=== PATIENT | female | born 1960 | race Caucasian/White ===

== ENCOUNTER 2017-12-20 21:08 | Emergency (ER) | payer OTHER ==
--- OUTSIDE RECORDS SUMMARY | 2017-12-20 21:11 | XMS REPORT | Clinical Summary ---
:1960 Author Organization [facility] Address [address] [place] [address] Care Team Providers Name Role Phone Leon Tamez MD Primary Care Provider Allergies Active Allergy Reactions Severity Noted Date Comments Ceftriaxone Itching 10/06/2017 Codeine Itching Medium 05/01/2016 11/22/16 - pt states she has taken codeine recently without difficulty Eggshell Membrane Diarrhea 10/08/2016 Egg yoke Iodine Anaphylaxis High 05/01/2016 SOB, wheezing, "my throat closes up." *pt states cannot have topical nor IV Promethazine Other (See Comments) 09/07/2016 Severe confusion Shellfish Derived Anaphylaxis High 05/05/2016 Current Medications Prescription Sig. Disp. Refills Start Date End Date Status riFAXimin (XIFAXAN) Take 550 mg by Active 550 mg tablet mouth 2 (two) times a day. spironolactone Take 100 mg by Active (ALDACTONE) 100 MG mouth every tablet morning. cetirizine (ZyrTEC) Take 10 mg by Active 10 MG tablet mouth daily as needed. QUEtiapine (SEROquel) Take 50 mg by Active 50 MG tablet mouth nightly. pantoprazole Take 40 mg by Active (PROTONIX) 40 MG EC mouth daily. tablet traMADol (ULTRAM) 50 Take 50 mg by Active mg tablet mouth every 6 (six) hours as needed for moderate pain. furosemide (LASIX) 40 Take 1 tablet 90 tablet 3 01/25/2017 Active mg tabletIndications: (40 mg total) Other hypervolemia, by mouth Other cirrhosis of daily. liver, Awaiting liver transplant lactulose 10 gram/15 Take 15 mL (10 1350 mL 11 03/04/2017 Active mL (15 mL) g total) by 8 solutionIndications: mouth 3 Hepatic (three) times encephalopathy a day. lactulose 20 gram/30 Take 30 mL (20 8100 mL 3 03/04/2017 Active mL solution g total) by 8 mouth 3 (three) times a day. potassium chloride 20 Take 40 mEq by 90 tablet 2 06/24/2017 Active mEq tablet extended mouth daily. releaseIndications: Hypokalemia, Other hypervolemia, Localized edema, Awaiting liver transplant gabapentin Take 300 mg by Active (NEURONTIN) 300 mg mouth 3 capsule (three) times a day. furosemide (LASIX) 40 Take 40 mg by Discontinued mg tablet mouth daily. 7 lactulose 10 gram/15 Take 15 mL (10 2700 mL 3 11/07/2016 Discontinued mL (15 mL) g total) by 7 solutionIndications: mouth 3 Hepatic (three) times encephalopathy a day. potassium chloride Take 2 tablets 10 tablet 0 01/25/2017 (K-DUR) 20 MEQ CR (40 mEq total) 7 tabletIndications: by mouth daily Other hypervolemia, for 5 days. Other cirrhosis of liver, Awaiting liver transplant potassium chloride Take 30 mL (40 900 mL 0 02/05/2017 Discontinued (KAYCIEL) 20 mEq/15 mEq total) by 7 mL mouth daily solutionIndications: for 30 days. Hypokalemia, Other cirrhosis of liver potassium chloride 20 Take 40 mEq by 90 tablet 2 02/15/2017 Discontinued mEq tablet extended mouth daily. 7 releaseIndications: Hypokalemia, Other hypervolemia, Localized edema, Awaiting liver transplant MEDROL 32 mg Take 1 tablet 2 tablet 0 04/25/2017 tabletIndications: (32 mg total) 7 Allergy to iodine by mouth daily for 2 days. diphenhydrAMINE Take 2 2 capsule 0 04/16/2017 (BENADRYL) 25 mg capsules (50 7 capsuleIndications: mg total) by Allergy to iodine mouth once for 1 dose. polyethylene glycol Take 17 g by 30 packet 0 05/10/2017 (MIRALAX) 17 gram mouth daily 7 packet for 30 days. polyethylene glycol Take 17 g by 30 packet 0 10/07/2017 (MIRALAX) 17 gram mouth daily 8 packet for 30 days. senna (SENOKOT) 8.6 Take 1 tablet 30 tablet 0 10/08/2017 mg tablet by mouth daily 8 for 30 days. Active Problems Problem Noted Date Acute hepatic encephalopathy 10/05/2017 Hematochezia 12/11/2016 Melena 12/11/2016 Overview: Added automatically from request for surgery [id number] Bipolar disorder, unspecified 10/09/2016 Persistent depressive disorder 10/09/2016 Alcoholic cirrhosis of liver 09/12/2016 Hepatic encephalopathy 06/26/2016 S/P TIPS (transjugular intrahepatic portosystemic shunt) 05/08/2016 Thrombocytopenia 05/04/2016 Cirrhosis of liver not due to alcohol 05/04/2016 Malnutrition 05/04/2016 Encounters Date Type Specialty Care Team Description 11/25/2017 Telephone Transplant Dahlia Fernandez, Labs f/u RN 11/22/2017 Hospital Encounter Transplant Calos Garcia (nonalcoholic steatohepatitis); MD Ping Awaiting liver transplant 11/21/2017 Orders Only Transplant Dahlia Fernandez, DENYS (nonalcoholic steatohepatitis) (Primary Dx); RN Awaiting liver transplant 11/21/2017 Telephone Transplant Dahlia Fernandez, labs RN 11/21/2017 Telephone Transplant Talon, Speak to Coordinator BENNETT Eaton 10/25/2017 Telephone Transplant Dahlia Fernandez, returning call RN 10/18/2017 Telephone Transplant Marita Gomez [facility] 10/16/2017 Telephone Transplant Renae Chadwick MA Med Inquiries 10/16/2017 Telephone Transplant Gene Díaz MA Returning Call 10/16/2017 Telephone Transplant Marita Gomez [facility] 10/15/2017 Telephone Transplant Dahlia Fernandez, f/u appt RN 10/11/2017 Documentation Transplant Dahlia Fernandez, MELD score updated to RN 12;recert due 01/04/18 10/05/2017 Hospital Encounter General Internal Giselle, Hepatic - Medicine DO Alexis encephalopathy 10/07/2017 Maximo, (Primary Dx) Elia Sheets MD 10/03/2017 Telephone Transplant Dahlia Fernandez, Inpatient in [place] AMARILIS lee 09/20/2017 Telephone Transplant Padmini Soares Waitlist Status M, MA Update 09/20/2017 Telephone Transplant Dahlia Fernandez, returning call RN 09/19/2017 Telephone Transplant Gene Díaz MA Speak with Coordinator 09/11/2017 Telephone Transplant Padmini Soares B12 Injection M, BENNETT 09/11/2017 Telephone Transplant Renae Chadwick MA Speak to Coordinator 09/03/2017 Telephone Transplant Dahlia Fernandez, f/u RN 08/19/2017 Telephone Transplant Dahlia Fernandez, returning call RN 08/16/2017 Documentation Transplant Dahlia Fernandez, MELD score updated to RN 10;recert due 08/16/18 08/06/2017 Telephone Transplant Dahlia Fernandez, Jury duty RN 07/25/2017 Telephone Transplant Padmini Soares RX Request M, MA 07/24/2017 Telephone Transplant Gene Díaz MA Sick Call 07/19/2017 Telephone Transplant Gene Díaz MA PTINR 07/18/2017 Telephone Transplant Padmini Soares PT/INR M, MA 07/11/2017 Telephone Transplant Padmini Soares Weight Gain M, MA 07/08/2017 Telephone Transplant Renae Chadwick MA Med Clarification 06/27/2017 Telephone Transplant Talon Sick Call; returning Uma, CT call 06/24/2017 Refill Transplant Dahlia Fernandez, Med Refill RN 06/05/2017 Telephone Transplant Taoln, Lab Orders [place], CT 05/27/2017 Telephone Transplant Dahlia Fernandez, MELD score updated to RN 14;recert due 08/27/16 05/24/2017 Telephone Transplant Padmini Soares Lab Recollect M, MA Question 05/17/2017 Telephone Transplant Dahlia Fernandez, f/u RN 05/13/2017 Telephone Transplant Bonny Zambrano, Return Call RN 05/13/2017 Telephone Transplant Telma Medrano, Pt at the ER CT 05/09/2017 Emergency Emergency Nasir Cordero Acute nonintractable headache, unspecified headache type (Primary Dx); - Medicine DO Pedro Generalized abdominal pain; 05/10/2017 Constipation, unspecified constipation type; Hyperammonemia 05/09/2017 Telephone Transplant Padmini Soares Sick Call M, MA 05/03/2017 Telephone Transplant Talon, Returning Callback Uma, MA 05/03/2017 Telephone Transplant Dahlia Fernandez, returning call RN 04/30/2017 Hospital Encounter Radiology Calos Garcia Allergy to iodine MD Ping 04/30/2017 Telephone Transplant Dahlia Fernandez, Returning call RN 04/30/2017 Telephone Transplant Gene Díaz MA Appointment Questions 04/29/2017 Telephone Transplant Gene Díaz MA Speak with coordinator 04/29/2017 Telephone Transplant Dahlia Fernandez, Request for RN additional premedication for MRI 04/18/2017 Telephone Transplant Talon, Speak to Coordinator BENNETT Eaton 04/16/2017 Procedure Pass Radiology 04/16/2017 Transcribe Orders Transplant Dahlia Fernandez, Allergy to iodine RN (Primary Dx) 04/16/2017 Telephone Transplant Dahlia Fernandez, hurricane f/u RN 04/04/2017 Telephone Transplant Gene Díaz MA Speak with coordinator 04/01/2017 Telephone Transplant Renae Chadwick MA Pt heading to ER 03/26/2017 Telephone Transplant Bonny Zambrano, Return Call RN 03/26/2017 Telephone Transplant Padmini Soares MA 03/20/2017 Telephone Transplant Renae Chadwick MA Request to speak to coordinator 03/08/2017 Telephone Transplant Bonny Zambrano, Follow-up RN 03/04/2017 Telephone Transplant Bonny Zambrano, Return Call RN 03/04/2017 Abstract Transplant Dahlia Fernandez RN 03/04/2017 Telephone Transplant Dahlia Fernandez, New Rx Needed RN 03/04/2017 Telephone Transplant Rhys Med Refill AMARILIS Trent 03/01/2017 Telephone Transplant Bonny Zambrano, F/U for recent weight RN gain 03/01/2017 Telephone Transplant Bonny Zambrano, MELD update RN notification 03/01/2017 Documentation Transplant Bonny Zambrano, MELD score updated to RN 14, expires 06/01/17 02/25/2017 Telephone Transplant Dahlia Fernandez, labs f/u appt RN 02/15/2017 Refill Transplant Dahlia Fernandez, Med Refill RN 02/15/2017 Telephone Transplant Telma Medrano, Error MA 02/15/2017 Telephone Transplant Talon, Orders Needed BENNETT Eaton 02/15/2017 Telephone Transplant Dahlia Fernandez, lab results RN 02/05/2017 Telephone Transplant Dahlia Fernandez, f/u RN 02/04/2017 Telephone Transplant Telma Medrano, Returning coord phone MA call 02/04/2017 Telephone Transplant Dahlia Fernandez, labs f/u RN 01/31/2017 Telephone Transplant Telma Medrano, INR lab draw MA 01/25/2017 Documentation Transplant Dahlia Fernandez, MELD score updated to RN 11;expires 04/27/17 01/25/2017 Refill Transplant Dahlia Fernandez, Med Refill RN 01/25/2017 Telephone Transplant Dahlia Fernandez, labs f/u RN 01/15/2017 Telephone Transplant Talon, Lab results Uma, BENNETT 01/14/2017 Telephone Transplant Dahlia Fernandez, f/u RN 01/14/2017 Telephone Transplant Renae Chadwick MA Sick call 01/14/2017 Telephone Transplant Angélica Hughes RN Abdominal Pain (Pain) 01/04/2017 Refill Transplant Dahlia Fernandez, Med Refill RN 01/02/2017 Transcribe Orders Transplant Dahlia Fernandez RN 12/26/2016 Telephone Transplant Annette Whitney Lab order requested. BENNETT Reynolds 12/20/2016 Telephone Transplant Talon, Order Kong Eaton MA after 12/19/2016 Immunizations Name Dates Previously Given Next Due FLUCELVAX QUAD PF (0.5mL syringe) 05/08/2016 Pneumococcal Conjugate 13-Valent 05/08/2016 Family History Patient is adopted Medical History Relation Name Comments No Known Problems Father No Known Problems Mother Relation Name Status Comments Father Mother Social History Tobacco Use Types Packs/Day Years Used Date Former Smoker Cigarettes 0.5 38 08/12/1976 - 09/24/2016 Smokeless Tobacco: Never Used Tobacco Cessation: Ready to Quit: No Comments: smokes 5 cigarettes per day Alcohol Use Drinks/Week oz/Week Comments No Former social alcohol use, quit several years ago; denies history of heavy alcohol use Sex Assigned at Date Recorded Not on file Last Filed Vital Signs Vital Sign Reading Time Taken Blood Pressure 93/52 10/07/2017 3:41 PM SENIOR CIVIL ENGINEER Pulse 82 10/07/2017 3:41 PM SENIOR CIVIL ENGINEER Temperature 36.6 C (97.8 F) 10/07/2017 3:41 PM SENIOR CIVIL ENGINEER Respiratory Rate 18 10/07/2017 3:41 PM SENIOR CIVIL ENGINEER Oxygen Saturation 96% 10/07/2017 3:41 PM SENIOR CIVIL ENGINEER Inhaled Oxygen Concentration - - Weight 80.8 kg (178 lb 1.6 oz) 10/07/2017 5:00 AM SENIOR CIVIL ENGINEER Height 149.9 cm (4' 11") 10/05/2017 7:12 PM SENIOR CIVIL ENGINEER Body Mass Index 35.97 10/07/2017 5:00 AM SENIOR CIVIL ENGINEER Plan of Treatment Health Maintenance Due Date Last Done Comments COLONOSCOPY 2011 SHINGRIX VACCINE (#1) 2011 INFLUENZA VACCINE 03/12/2018 05/08/2016 MAMMOGRAM 10/17/2018 10/17/2016, 10/09/2016, 10/09/2016 PAP SMEAR 10/08/2019 10/08/2016 Implants Implanted Type Area Napper Runner Device Expiration Model / Identifier Date Serial / Lot Stent Endprths Viatorr Tips 8cm 10mm - [id number] Surgical N/A: N/A W L GORE 02/06/2019 [id number] / Implanted: 05/04/2016 (Quantity not on file) Stents [id number] / [id number] Results Estimated GFR (11/22/2017 2:23 PM)Only the most recent of5 resultswithin the time period is included. Component Value Ref Range GFR Non Af Amer 46 (A) mL/min/1.73 m2 GFR Af Amer 56 (A) mL/min/1.73 m2 Comment: Chronic kidney disease: <60 mL/min/1.73m2 Kidney failure: <15 mL/min/1.73m2 The estimated GFR is calculated from the IDMS-traceable Modification of Diet in Renal Disease Equation. The accuracy of the calculation is poor when the creatinine is normal. Calculated values >90 mL/min/1.73m2 are not reported. This equation has not been validated in children (<18 years), women, the elderly (>70 years), or ethnic groups other than Caucasians and Americans. Specimen Performing Laboratory Plasma specimen [facility] OF [facility] [address] [place] [address] Partial thromboplastin time, activated (11/22/2017 2:23 PM)Only the most recent of3 resultswithin the time period is included. Component Value Ref Range PTT 34.8 23.0 - 36.0 sec Comment: PTT therapeutic range for unfractionated heparin is 61.0-112.0 seconds which corresponds to Anti-Xa 0.3-0.7 U/ml. Specimen Performing Laboratory Blood [facility] [address] [place] [id number] Prothrombin time with INR (11/22/2017 2:23 PM)Only the most recent of5 resultswithin the time period is included. Component Value Ref Range Prothrombin time 16.8 (H) 12.0 - 15.0 sec INR 1.3 Comment: The International Normalized Ratio (INR) is a therapeutic monitoring tool for patients who are stable on oral anticoagulant therapy. An INR of 2.0-3.0 is suggested for deep vein thrombosis/pulmonary embolism. Specimen Performing Laboratory Blood [facility] OF [facility] AND [address] [address] CBC with platelet and differential (11/22/2017 2:23 PM)Only the most recent of5 resultswithin the time period is included. Component Value Ref Range WBC 6.30 4.50 - 11.00 k/uL RBC 3.49 (L) 4.20 - 5.50 m/uL HGB 10.2 (L) 12.0 - 16.0 g/dL HCT 31.7 (L) 37.0 - 47.0 % MCV 90.8 82.0 - 100.0 fL MCH 29.2 27.0 - 34.0 pg MCHC 32.2 31.0 - 37.0 g/dL RDW - SD 50.7 37.0 - 55.0 fL MPV 11.4 8.8 - 13.2 fL Platelet count 86 (L) 150 - 400 k/uL Nucleated RBC 0.00 /100 WBC Neutrophils 71.3 (H) 39.0 - 69.0 % Lymphocytes 16.0 (L) 25.0 - 45.0 % Monocytes 10.5 (H) 0.0 - 10.0 % Eosinophils 1.1 0.0 - 5.0 % Basophils 0.6 0.0 - 1.0 % Immature granulocytes 0.5Comment: "Immature granulocytes" 0.0 - 1.0 % (promyelocytes, myelocytes, metamyelocytes) Specimen Performing Laboratory Blood [facility] [address] [place] [id number] Hepatic function panel (11/22/2017 2:23 PM) Component Value Ref Range Albumin 3.4 (L) 3.5 - 5.0 g/dL Total bilirubin 1.0 0.0 - 1.2 mg/dL Bilirubin direct 0.4 (H) 0.0 - 0.3 mg/dL Alkaline phosphatase 72 35 - 104 U/L Protein 7.5 6.3 - 8.3 g/dL Comment: Leander 4.6-7.0 g/dL 1 week 4.4-7.6 g/dL 7 months-1year5.1-7.3 g/dL 1-2 years5.6-7.5 g/dL >3 years6.0-8.0 g/dL 18-150 6.3-8.3 g/dL ALT 10 5 - 50 U/L AST 25 10 - 35 U/L Specimen Performing Laboratory Plasma specimen [facility] [address] [place] [id number] Basic metabolic panel (11/22/2017 2:23 PM) Component Value Ref Range Sodium 140 135 - 148 mEq/L Potassium 4.2 3.5 - 5.0 mEq/L Chloride 104 98 - 112 mEq/L CO2 22 (L) 24 - 31 mEq/L Anion gap 14 7 - 15 mEq/L Comment: Starting from November , anion gap calculation no longer incorporates potassium. Please note the change. BUN 17 6 - 20 mg/dL Creatinine 1.2 (H) 0.5 - 0.9 mg/dL Glucose 89 65 - 99 mg/dL Calcium 9.8 8.3 - 10.2 mg/dL Specimen Performing Laboratory Plasma specimen [facility] [address] [place] [id number] Comprehensive metabolic panel (10/07/2017 4:00 AM)Only the most recent of4 resultswithin the time period is included. Component Value Ref Range Sodium 143 135 - 148 mEq/L Potassium 3.7 3.5 - 5.0 mEq/L Chloride 107 98 - 112 mEq/L CO2 22 (L) 24 - 31 mEq/L Anion gap 14 7 - 15 mEq/L Comment: Starting from November , anion gap calculation no longer incorporates potassium. Please note the change. BUN 14 6 - 20 mg/dL Creatinine 1.1 (H) 0.5 - 0.9 mg/dL Glucose 91 65 - 99 mg/dL Calcium 9.3 8.3 - 10.2 mg/dL Protein 6.4 6.3 - 8.3 g/dL Comment: 4.6-7.0 g/dL 1 week 4.4-7.6 g/dL 7 months-1year5.1-7.3 g/dL 1-2 years5.6-7.5 g/dL >3 years6.0-8.0 g/dL 18-150 6.3-8.3 g/dL Albumin 3.1 (L) 3.5 - 5.0 g/dL A/G ratio 0.9 0.7 - 3.8 Alkaline phosphatase 53 35 - 104 U/L AST 21 10 - 35 U/L ALT <5 (A) 5 - 50 U/L Total bilirubin 1.0 0.0 - 1.2 mg/dL Specimen Performing Laboratory Plasma specimen [facility] [address] [place] [id number] POC glucose (10/06/2017 9:12 PM)Only the most recent of2 resultswithin the time period is included. Component Value Ref Range POC glucose 95 65 - 99 mg/dL Comment: [facility] Notified RN Meter ID: [id number] Adjunct Physics Instructor: Pardeep Benedict Specimen Performing Laboratory [facility] [address] [place] [id number] Urine culture (10/06/2017 7:58 AM) Component Value Ref Range Urine culture SEE COMMENTComment: Bacteriuria screen negative. Specimen Performing Laboratory [facility] [address] [place] [id number] Urinalysis screen and microscopy, with reflex to culture (10/06/2017 7:06 AM) Component Value Ref Range Specimen site Clean catch Color, UA Cortney Appearance, UA Hazy Specific gravity, UA 1.021 1.001 - 1.035 pH, UA 5.0 5.0 - 8.5 Protein, UA Negative Negative Glucose, UA Negative Negative Ketones, UA Negative Negative Bilirubin, UA Negative Negative Blood, UA Negative Negative Nitrite, UA Negative Negative Urobilinogen, UA 4.0 (A) <2.0 Leukocyte esterase, UA Negative Negative Epithelial cells, UA 10 /HPF Round epithelial cells, UA <1 0 - 1 /HPF WBC, UA 2 0 - 4 /HPF RBC, UA 1 0 - 2 /HPF Bacteria, UA Few None seen Yeast, UA None seen Yeast with pseudohyphae, UA None seen Hyaline casts, UA 1 /LPF Specimen Performing Laboratory Urine [facility] [address] [place] [address] XR Chest 1 Vw Portable (10/05/2017 11:39 PM) Specimen Performing Laboratory [facility] [address] [place] [address] Narrative Examination:XR CHEST 1 VW PORTABLE Clinical History:decompensated cirrhosis Comparison: None. Technique: Single frontal view of the chest is obtained. Findings: The lungs are free of infiltrate. The heart size is normal. No pleural effusion is seen. Impression: No active cardiopulmonary disease identified. [facility]-[id number] Procedure Note Interface, Radiology Results Incoming - 10/05/2017 11:44 PM SENIOR CIVIL ENGINEER Examination: XR CHEST 1 VW PORTABLE Clinical History: decompensated cirrhosis Comparison: None. Technique: Single frontal view of the chest is obtained. Findings: The lungs are free of infiltrate. The heart size is normal. No pleural effusion is seen. Impression: No active cardiopulmonary disease identified. [facility]-[id number] CT Abdomen Pelvis Wo Contrast (10/05/2017 11:01 PM) Specimen [facility] [address] [place] [address] Narrative Examination:CT ABDOMEN PELVIS WO CONTRAST Clinical History: abdominal pain Comparison: 05/10/2017 Findings: CT scans are performed using radiation dose reduction techniques.Technical factors are evaluated and adjusted to ensure appropriate moderation of exposure.Automated dose management technology is applied to adjust radiation exposure while achieving a diagnostic quality image. CT scan of the abdomen and pelvis was performed without intravenous contrast. The graft the liver is nodular in contour. TIPS stent is noted. No focal lesion is seen but is limited without intravenous contrast. The spleen is mildly enlarged. The pancreas and adrenal glands are unremarkable. Gallstones and noted in the gallbladder. No gallbladder wall thickening is seen. Right intrarenal calculus measuring 1 mm. Left intrarenal calculus measures 2 mm. There is a left renal cyst noted measuring 4.9 cm. No hydronephrosis is seen. Anterior abdominal wall hernia repair is noted. No recurrent hernia is seen. The appendix is nonvisualized. No bowel thickening or fat stranding is seen. No bowel dilatation is seen. No free air or fluid is seen. Urinary bladder is unremarkable. The visualized lung bases are clear. IMPRESSION: 1. Hepatic cirrhosis with TIPS stent and mild splenomegaly is unchanged. 2. Cholelithiasis without CT evidence for cholecystitis. 3. Anterior abdominal wall hernia repair without evidence of recurrent hernia. 4. Bilateral nonobstructing intrarenal calculi. [facility]-[id number] Procedure Note Interface, Radiology Results Incoming - 10/05/2017 11:21 PM SENIOR CIVIL ENGINEER Examination: CT ABDOMEN PELVIS WO CONTRAST Clinical History: abdominal pain Comparison: 05/10/2017 Findings: CT scans are performed using radiation dose reduction techniques. Technical factors are evaluated and adjusted to ensure appropriate moderation of exposure. Automated dose management technology is applied to adjust radiation exposure while achieving a diagnostic quality image. CT scan of the abdomen and pelvis was performed without intravenous contrast. The graft the liver is nodular in contour. TIPS stent is noted. No focal lesion is seen but is limited without intravenous contrast. The spleen is mildly enlarged. The pancreas and adrenal glands are unremarkable. Gallstones and noted in the gallbladder. No gallbladder wall thickening is seen. Right intrarenal calculus measuring 1 mm. Left intrarenal calculus measures 2 mm. There is a left renal cyst noted measuring 4.9 cm. No hydronephrosis is seen. Anterior abdominal wall hernia repair is noted. No recurrent hernia is seen. The appendix is nonvisualized. No bowel thickening or fat stranding is seen. No bowel dilatation is seen. No free air or fluid is seen. Urinary bladder is unremarkable. The visualized lung bases are clear. IMPRESSION: 1. Hepatic cirrhosis with TIPS stent and mild splenomegaly is unchanged. 2. Cholelithiasis without CT evidence for cholecystitis. 3. Anterior abdominal wall hernia repair without evidence of recurrent hernia. 4. Bilateral nonobstructing intrarenal calculi. [facility]-[id number] CT Head Wo Contrast (10/05/2017 11:01 PM)Only the most recent of2 resultswithin the time period is included. Specimen Performing Laboratory [facility] [address] [place] [address] Narrative EXAMINATION: CT HEAD WO CONTRAST CLINICAL HISTORY: ams COMPARISON:05/10/[address] TECHNIQUE: Noncontrast enhanced images of the brain were obtained from the skull base to the vertex. Both soft tissue and bone reconstruction algorithms were performed. CT scans are performed using radiation dose reduction techniques (iterative reconstruction and/or automated exposure control). Technical factors are evaluated and adjusted to ensure appropriate moderation of exposure. Automated dose management technology is applied to adjust radiation exposure while achieving a diagnostic quality image. FINDINGS: Mild generalized brain parenchymal volume loss. Nonspecific hypoattenuation of the supratentorial white matter, likely chronic microangiopathic changes. Mild cerebrovascular calcifications. The brain parenchyma is otherwise unremarkable. The gomez-white matter differentiation is preserved. No evidence of acute intra or extra-axial hemorrhage, mass, mass effect or acute territorial infarction. There is no acute hydrocephalus. Basal cisterns are patent. No acute soft tissue hematoma or laceration. No skull fractures or aggressive bony lesions. Paranasal sinuses and mastoid air cells are clear. Orbits are normal. IMPRESSION: Involutional changes as detailed above with no acute intracranial abnormality. [id number] Procedure Note [facility], Radiology Results Incoming - 10/05/2017 11:13 PM SENIOR CIVIL ENGINEER EXAMINATION: CT HEAD WO CONTRAST CLINICAL HISTORY: ams COMPARISON: 05/10/[address] TECHNIQUE: Noncontrast enhanced images of the brain were obtained from the skull base to the vertex. Both soft tissue and bone reconstruction algorithms were performed. CT scans are performed using radiation dose reduction techniques (iterative reconstruction and/or automated exposure control). Technical factors are evaluated and adjusted to ensure appropriate moderation of exposure. Automated dose management technology is applied to adjust radiation exposure while achieving a diagnostic quality image. FINDINGS: Mild generalized brain parenchymal volume loss. Nonspecific hypoattenuation of the supratentorial white matter, likely chronic microangiopathic changes. Mild cerebrovascular calcifications. The brain parenchyma is otherwise unremarkable. The gomez-white matter differentiation is preserved. No evidence of acute intra or extra-axial hemorrhage, mass, mass effect or acute territorial infarction. There is no acute hydrocephalus. Basal cisterns are patent. No acute soft tissue hematoma or laceration. No skull fractures or aggressive bony lesions. Paranasal sinuses and mastoid air cells are clear. Orbits are normal. IMPRESSION: Involutional changes as detailed above with no acute intracranial abnormality. [facility]-[id number] Lipase level (10/05/2017 9:46 PM)Only the most recent of2 resultswithin the time period is included. Component Value Ref Range Lipase 22 13 - 60 U/L Specimen Performing Laboratory Plasma specimen [facility] [address] [place] [id number] Ammonia level (10/05/2017 9:46 PM)Only the most recent of2 resultswithin the time period is included. Component Value Ref Range Ammonia 77 (H) 11 - 51 umol/L Specimen Performing Laboratory Blood [facility] [address] [place] [address] CT Renal Stone Protocol (05/10/2017 12:57 AM) Specimen Performing Laboratory [facility] [address] [place] [address] RENAL STONE PROTOCOL CLINICAL INDICATION:abd paincirrhosis TECHNIQUE: Multidetector CT of the abdomen and pelvis was performed without intravenous administration of iodinated contrast with multiplanar reformats. CT scans are performed using radiation dose reduction techniques (iterative reconstruction and/or automated exposure control). Technical factors are evaluated and adjusted to ensure appropriate moderation of exposure. Automated dose management technology is applied to adjust radiation exposure while achieving a diagnostic quality image. COMPARISON:MRI 04/30/2017. CT 05/02/2016. FINDINGS: Evaluation of abdominopelvic contents limited due to lack of IV contrast. Lung bases:Dependent subsegmental atelectasis/scarring. Liver:Cirrhotic morphology. TIPS catheter present. Limited evaluation for focal hepatic lesions without intravenous contrast. Gallbladder and biliary:Small calcified stones in the gallbladder which is contracted Pancreas:Normal. Spleen: Mildly enlarged measuring 13.4 cm. Gastrointestinal:Postsurgical changes of the right colon. Moderate fecal material throughout the colon. Large and small bowel are normal in caliber. Appendix is not visualized. No focal inflammatory changes within the right lower quadrant of the abdomen. Adrenals:Normal. Kidneys and ureters: Left renal cyst measuring 4.4 cm at mid pole, incompletely characterized without intravenous contrast. Few bilateral renal punctate calcifications/calculi measure 1-2 mm. No ureteral calculi are visualized. No hydronephrosis. Urinary bladder: No urinary bladder calculi visualized. Lymph nodes:No enlarged lymph nodes in the abdomen or pelvis. Peritoneum:No ascites or free air. Vascular:Mild atherosclerotic changes of the abdominal aorta and major branch vessels. Evaluation of vessel lumens is limited due to lack of IV contrast. Reproductive organs:Uterus is normal. Unremarkable adnexae. Abdominal wall: Ventral hernia mesh repair. Bones:Diffuse osteopenia. Mild degenerative changes. IMPRESSION: 1. Bilateral nonobstructive nephrolithiasis. No ureteral or urinary bladder calculi visualized. 2. Cirrhosis. TIPS catheter present. Mild splenomegaly. No significant ascites. 3. Cholelithiasis. 4. Moderate fecal material throughout the colon. [facility]-[id number] Procedure Note Hm Interface, Radiology Results Incoming - 05/10/2017 1:[address] RENAL STONE PROTOCOL CLINICAL INDICATION: abd pain cirrhosis TECHNIQUE: Multidetector CT of the abdomen and pelvis was performed without intravenous administration of iodinated contrast with multiplanar reformats. CT scans are performed using radiation dose reduction techniques (iterative reconstruction and/or automated exposure control). Technical factors are evaluated and adjusted to ensure appropriate moderation of exposure. Automated dose management technology is applied to adjust radiation exposure while achieving a diagnostic quality image. COMPARISON: MRI 04/30/2017. CT 05/02/2016. FINDINGS: Evaluation of abdominopelvic contents limited due to lack of IV contrast. Lung bases: Dependent subsegmental atelectasis/scarring. Liver: Cirrhotic morphology. TIPS catheter present. Limited evaluation for focal hepatic lesions without intravenous contrast. Gallbladder and biliary: Small calcified stones in the gallbladder which is contracted Pancreas: Normal. Spleen: Mildly enlarged measuring 13.4 cm. Gastrointestinal: Postsurgical changes of the right colon. Moderate fecal material throughout the colon. Large and small bowel are normal in caliber. Appendix is not visualized. No focal inflammatory changes within the right lower quadrant of the abdomen. Adrenals: Normal. Kidneys and ureters: Left renal cyst measuring 4.4 cm at mid pole, incompletely characterized without intravenous contrast. Few bilateral renal punctate calcifications/calculi measure 1-2 mm. No ureteral calculi are visualized. No hydronephrosis. Urinary bladder: No urinary bladder calculi visualized. Lymph nodes: No enlarged lymph nodes in the abdomen or pelvis. Peritoneum: No ascites or free air. Vascular: Mild atherosclerotic changes of the abdominal aorta and major branch vessels. Evaluation of vessel lumens is limited due to lack of IV contrast. Reproductive organs: Uterus is normal. Unremarkable adnexae. Abdominal wall: Ventral hernia mesh repair. Bones: Diffuse osteopenia. Mild degenerative changes. IMPRESSION: 1. Bilateral nonobstructive nephrolithiasis. No ureteral or urinary bladder calculi visualized. 2. Cirrhosis. TIPS catheter present. Mild splenomegaly. No significant ascites. 3. Cholelithiasis. 4. Moderate fecal material throughout the colon. [facility]-[id number] Lactic acid level (05/09/2017 9:02 PM) Component Value Ref Range Lactic acid 3.3 (H) 0.5 - 2.2 mmol/L Specimen Performing Laboratory Plasma specimen [facility] [address] [place] [address] Narrative 2X EXTRA GREEN 2X EXTRA LAV 1X EXTRA BLUE MRI Abdomen W Wo Contrast (04/30/2017 1:30 PM) Specimen Performing Laboratory [facility] [address] [place] [address] Narrative EXAMINATION:MRI ABDOMEN W WO CONTRAST CLINICAL HISTORY:Z88.8 Allergy status to other drugsmedicaments and biological substances status, HCC Screen COMPARISON:October 09, 2016 TECHNIQUE: Multiplanar, multisequence MRI of the abdomen with and without intravenous gadolinium. FINDINGS: The liver is cirrhotic. No suspicious focal hepatic mass is identified. Portal vein is patent. Status post TIPS. The spleen is enlarged. There is no ascites. Cholelithiasis. No biliary dilatation. No pancreatic lesion. Stable left renal cyst measuring 4.6 cm without solid component. Couple of smaller cysts are noted in the left lower pole. No lymphadenopathy. IMPRESSION: 1.Liver cirrhosis without evidence of HCC. 2.Patent portal vein. Status post TIPS. [id number] Procedure Note [facility], Radiology Results Incoming - 04/30/2017 1:47 PM CDT EXAMINATION: MRI ABDOMEN W WO CONTRAST CLINICAL HISTORY: Z88.8 Allergy status to other drugs medicaments and biological substances status, HCC Screen COMPARISON: October 09, 2016 TECHNIQUE: Multiplanar, multisequence MRI of the abdomen with and without intravenous gadolinium. FINDINGS: The liver is cirrhotic. No suspicious focal hepatic mass is identified. Portal vein is patent. Status post TIPS. The spleen is enlarged. There is no ascites. Cholelithiasis. No biliary dilatation. No pancreatic lesion. Stable left renal cyst measuring 4.6 cm without solid component. Couple of smaller cysts are noted in the left lower pole. No lymphadenopathy. IMPRESSION: 1. Liver cirrhosis without evidence of HCC. 2. Patent portal vein. Status post TIPS. [facility]-[id number] after 12/19/2016 Insurance Payer Benefit Plan / Group Subscriber ID Type Phone Address MEDICARE MEDICARE PART A AND B xxxxxxxxxx Medicare [place], [place] MEDICAID MEDICAID xxxxxxxxx Medicaid Home: [address] [phone] [place], [place] [phone] BELLA BARRON Transplant Self 1960 Home: [address] [phone] [place], [place] [phone]
[2017-12-20 22:17] LABS: Potassium 3.7 mEq/L (3.6-5.0)
[2017-12-20 22:24] LABS: Albumin 3.6 g/dL (3.2-5.5); Bilirubin Direct 1.1 mg/dL (0-0.2); Bilirubin Total 2.5 mg/dL (0.3-1.2); Protein, Total 7.2 g/dL (6.0-8.3)
[2017-12-20 22:25] LABS: Absolute Lymphocytes (CBC) 1.1 K/uL (0.7-4.9); Absolute Neutrophil 7.9 K/uL (1.8-8.0); Basophils % 0.4 % (0-1.3); Eosinophils % 1.8 % (0-4.4); Hematocrit 30.8 % (36.0-45.0); Lymphocytes % 10.6 % (15.3-44.8); MCH 29.6 pg (27.0-35.0); Monocytes % 9.9 % (3.3-12.3)
[2017-12-20] MEDS ORDERED: Morphine 2 MG/2 ML SYR ONE (22:48)
[2017-12-20] MEDS ORDERED: NA CHLORIDE 0.9% 1,000 ML ONE (22:49)
[2017-12-20] MEDS ORDERED: ONDANSETRON 4 MG/2 ML VIAL ONE (22:49)
[2017-12-20 23:37] LABS: Blood Morphology Comment NOT SEEN (NOT SEEN); Platelet Estimate DECR; Urine White Blood Cell Casts OK
--- NOTE | 2017-12-21 00:02 | EDPHYS ---
Physician Documentation [facility] Name: Bella Barron Age: 57 yrs Sex: Female : 1960 Arrival Date: 12/20/2017 Time: 21:09 Bed 15 Private MD: [facility] ED Physician Alen Phillip HPI: 12/21 00:38 This 57 yrs old Female presents to ER via Wheelchair with complaints of right tw4 side pain. 00:38 The patient presents with abdominal pain in the right upper quadrant. Onset: The tw4 symptoms/episode began/occurred just prior to arrival, today. The symptoms do not radiate. Associated signs and symptoms: none. The symptoms are described as dull. Modifying factors: The symptoms are alleviated by nothing, the symptoms are aggravated by alcohol. The patient has not experienced similar symptoms in the past. Historical: - Allergies: 12/20 21:16 Iodine; aj 21:16 Phenergan; aj 21:16 Rocephin; aj - Home Meds: 21:16 furosemide 40 mg Oral tab 1 tab once daily [Active]; lactulose 10 gram/15 mL Oral soln aj 30 mL twice a day [Active]; pantoprazole 40 mg Oral TbEC 1 tab once daily [Active]; quetiapine Oral 1 tab nightly [Active]; spironolactone 100 mg Oral tab 1 tab once daily [Active]; tramadol 50 mg Oral tab 1 tab as needed [Active]; Xifaxan 550 mg Oral tab 1 tab 2 times per day [Active]; - PMHx: 21:16 Cirrhosis; Crohn's; Depression; Liver disease; ocd; aj - PSHx: 21:16 TIPS procedure; aj - Immunization history:: Adult Immunizations up to date. - Social history:: Smoking status: Patient/guardian denies using tobacco. ROS: 12/21 00:38 Constitutional: Negative for fever, chills, and weight loss, Cardiovascular: Negative tw4 for chest pain, palpitations, and edema, Respiratory: Negative for shortness of breath, cough, wheezing, and pleuritic chest pain, Back: Negative for injury and pain, MS/Extremity: Negative for injury and deformity, Skin: Negative for injury, rash, and discoloration, Neuro: Negative for headache, weakness, numbness, tingling, and seizure. Abdomen/GI: Positive for abdominal pain, Negative for nausea and vomiting, nausea, vomiting, and diarrhea, nausea, vomiting. Exam: 00:38 Constitutional: This is a well developed, well nourished patient who is awake, alert, tw4 and in no acute distress. Head/Face: Normocephalic, atraumatic. Chest/axilla: Normal chest wall appearance and motion. Nontender with no deformity. No lesions are appreciated. Cardiovascular: Regular rate and rhythm with a normal S1 and S2. No gallops, murmurs, or rubs. Normal PMI, no JVD. No pulse deficits. Respiratory: Lungs have equal breath sounds bilaterally, clear to auscultation and percussion. No rales, rhonchi or wheezes noted. No increased work of breathing, no retractions or nasal flaring. Back: No spinal tenderness. No costovertebral tenderness. Full range of motion. MS/ Extremity: Pulses equal, no cyanosis. Neurovascular intact. Full, normal range of motion. Neuro: Awake and alert, GCS 15, oriented to person, place, time, and situation. Cranial nerves II-XII grossly intact. Motor strength 5/5 in all extremities. Sensory grossly intact. Cerebellar exam normal. Normal gait. Vital Signs: 12/20 21:16 BP 84 / 41; Pulse 81; Resp 20; Temp 98.0; Pulse Ox 98% on R/A; Weight 79.83 kg; Height aj 4 ft. 11 in. (149.86 cm); 21:40 BP 104 / 46; Pulse 82; Resp 16; Pulse Ox 97% on R/A; ao 22:35 BP 95 / 48; Pulse 76; Resp 18; Pulse Ox 99% on NC; Pain 0/10; ao 23:35 BP 102 / 56; Pulse 86; Resp 16; Pulse Ox 99% on R/A; Pain 0/10; ao 12/21 00:20 BP 103 / 51; Pulse 74; Resp 14; Pulse Ox 99% on R/A; ao 12/20 21:16 Body Mass Index 35.55 (79.83 kg, 149.86 cm) aj MDM: 12/20 21:28 Patient medically screened. tw4 12/21 00:38 Differential diagnosis: bowel obstruction, cholecystitis, Cholelithiasis, Hepatitis, tw4 non-specific abd pain, pancreatitis, Ureterolithiasis, urinary tract infection. Data reviewed: vital signs, nurses notes. Counseling: I had a detailed discussion with the patient and/or guardian regarding: the historical points, exam findings, and any diagnostic results supporting the discharge/admit diagnosis, lab results, radiology results. Medication response: morphine markedly relieved the patient's pain. Symptoms have improved. Response to treatment: the patient's symptoms have markedly improved after treatment, and as a result, I will discharge patient. Special discussion: Based on the patient's Hx, exam, and Dx evaluation, there is no indication for emergent surgery or inpatient Tx. It is understood by the patient/guardian that if the Sx's persist or worsen they need to return immediately for re-evaluation. 12/20 21:30 Order name: Amylase, Serum; Complete Time: 22:42 tw4 12/20 21:30 Order name: Basic Metabolic Panel; Complete Time: 22:42 tw4 12/20 21:30 Order name: CBC with Diff tw4 12/20 21:30 Order name: Creatinine for Radiology; Complete Time: 22:42 tw4 12/20 21:30 Order name: Hepatic Function; Complete Time: 22:42 tw4 12/20 21:30 Order name: Lipase; Complete Time: 22:42 tw4 12/20 21:30 Order name: IV Saline Lock; Complete Time: 21:52 tw4 12/20 21:30 Order name: Labs collected and sent; Complete Time: 22:57 tw4 12/20 22:28 Order name: CBC Smear Scan EDMS 12/20 22:44 Order name: CT Abd/Pelvis - Without Cont tw4 Administered Medications: 12/20 22:50 Drug: morphine 2 mg Route: IVP; Site: left antecubital; ao 12/21 00:26 Follow up: Response: No adverse reaction ao 12/20 22:55 Drug: Zofran 4 mg Route: IVP; Site: left antecubital; ao 12/21 00:26 Follow up: Response: No adverse reaction ao Disposition: 12/21/17 00:01 Discharged to Home. Impression: Constipation. - Condition is Stable. - Discharge Instructions: Constipation, Adult, [id number]. - Prescriptions for Lactulose 10 gram/15 mL Oral Solution - take 30 milliliter by ORAL route once daily; 300 milliliter. - Medication Reconciliation Form, Thank You Letter, Antibiotic Education, Prescription Opioid Use form. - Follow up: Fernando Díaz DO; When: As needed; Reason: Recheck today's complaints, Continuance of care, Re-evaluation by your physician. - Problem is new. - Symptoms are unchanged. Signatures: Dispatcher [employer] EDCallie Brown RN RN aj Ortiz, Alex, RN RN ao Wadley, Terrence, MD MD tw4 Corrections: (The following items were deleted from the chart) 00:26 05 21:30 Urine Dipstick-Ancillary ordered. tw4 ao 12/21 00:27 00:01 12/21/2017 00:01 Discharged to Home. Impression: Constipation. Condition is ao Stable. Forms are Medication Reconciliation Form, Thank You Letter, Antibiotic Education, Prescription Opioid Use. Follow up: Fernando Díaz; When: As needed; Reason: Recheck today's complaints, Continuance of care, Re-evaluation by your physician. Problem is new. Symptoms are unchanged. tw4
--- NOTE | 2017-12-21 00:02 | ER ---
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 Transition of aj care: patient was not received from another setting of care. Onset of symptoms was December 20, 2017. Care prior to arrival: None. 21:14 Method Of Arrival: Wheelchair aj 21:14 Acuity: OLEG 3 aj 23:45 Initial Sepsis Screen: Does the patient meet any 2 criteria? Does the patient have a ao suspected source of infection? No. Patient's initial sepsis screen is negative. Triage Assessment: 21:16 General: Appears in no apparent distress. uncomfortable, Behavior is calm, cooperative, aj appropriate for age. Pain: Complains of pain in right upper quadrant. Neuro: Level of Consciousness is awake, alert, obeys commands, Oriented to person, place, time, situation, Appropriate for age. Respiratory: Airway is patent Trachea midline Respiratory effort is even, unlabored, Respiratory pattern is regular, symmetrical. GI: Abdomen is obese, Reports upper abdominal pain. Derm: Skin is intact, is healthy with good turgor, Skin is pink, warm \T\ dry. normal. Historical: - Allergies: 21:16 Iodine; aj 21:16 Phenergan; aj 21:16 Rocephin; aj - Home Meds: 21:16 furosemide 40 mg Oral tab 1 tab once daily [Active]; lactulose 10 gram/15 mL Oral soln aj 30 mL twice a day [Active]; pantoprazole 40 mg Oral TbEC 1 tab once daily [Active]; quetiapine Oral 1 tab nightly [Active]; spironolactone 100 mg Oral tab 1 tab once daily [Active]; tramadol 50 mg Oral tab 1 tab as needed [Active]; Xifaxan 550 mg Oral tab 1 tab 2 times per day [Active]; - PMHx: 21:16 Cirrhosis; Crohn's; Depression; Liver disease; ocd; aj - PSHx: 21:16 TIPS procedure; aj - Immunization history:: Adult Immunizations up to date. - Social history:: Smoking status: Patient/guardian denies using tobacco. Screenin:36 Abuse screen: Denies threats or abuse. Denies injuries from another. Nutritional ao screening: No deficits noted. Tuberculosis screening: No symptoms or risk factors identified. Fall Risk None identified. Assessment: 21:35 General: Appears in no apparent distress. uncomfortable, Behavior is calm, cooperative, ao appropriate for age. Pain: Complains of pain in abdomen and right upper quadrant. Neuro: Level of Consciousness is awake, alert, obeys commands, Oriented to person, place, time, situation, Appropriate for age Moves all extremities. Full function Speech is normal. Cardiovascular: Patient's skin is warm and dry. Respiratory: Airway is patent is compromised Trachea midline Respiratory effort is even, unlabored, Respiratory pattern is regular, symmetrical. GI: Abdomen is non-distended. GI: Bowel sounds present X 4 quads. Reports lower abdominal pain, upper abdominal pain, nausea. : No signs and/or symptoms were reported regarding the genitourinary system. EENT: No signs and/or symptoms were reported regarding the EENT system. Derm: No signs and/or symptoms reported regarding the dermatologic system. Musculoskeletal: No signs and/or symptoms reported regarding the musculoskeletal system. 22:35 Reassessment: Patient appears in no apparent distress at this time. Patient and/or ao family updated on plan of care and expected duration. Pain level reassessed. Patient is alert, oriented x 3, equal unlabored respirations, skin warm/dry/pink. 23:43 Reassessment: Patient appears in no apparent distress at this time. Patient and/or ao family updated on plan of care and expected duration. Pain level reassessed. Patient is alert, oriented x 3, equal unlabored respirations, skin warm/dry/pink. Waiting on CT report. 12/21 00:20 Reassessment: Dr Phillip has discuss the POC with Patient. Patient DC and instructions ao were given. Patient understand to follow up with Dr Díaz. Vital Signs: 12/20 21:16 BP 84 / 41; Pulse 81; Resp 20; Temp 98.0; Pulse Ox 98% on R/A; Weight 79.83 kg; Height aj 4 ft. 11 in. (149.86 cm); 21:40 BP 104 / 46; Pulse 82; Resp 16; Pulse Ox 97% on R/A; ao 22:35 BP 95 / 48; Pulse 76; Resp 18; Pulse Ox 99% on NC; Pain 0/10; ao 23:35 BP 102 / 56; Pulse 86; Resp 16; Pulse Ox 99% on R/A; Pain 0/10; ao 12/21 00:20 BP 103 / 51; Pulse 74; Resp 14; Pulse Ox 99% on R/A; ao 12/20 21:16 Body Mass Index 35.55 (79.83 kg, 149.86 cm) aj ED Course: 12/20 21:09 Patient arrived in ED. am2 21:09 Fernando Díaz DO is Private Physician. am2 21:15 Triage completed. aj 21:16 Arm band placed on left wrist. Patient placed in an exam room. aj 21:24 Malcolm Quinonez, RN is Primary Nurse. ao 21:28 Alen Phillip MD is Attending Physician. tw4 21:30 Missed attempt(s): 20 gauge in right antecubital area. ao 21:36 Patient has correct armband on for positive identification. Pulse ox on. NIBP on. ao 21:50 Missed attempt(s): 22 gauge in right forearm. antecubital area. Bleeding controlled, ms band aid applied, catheter tip intact. 22:00 Inserted saline lock: 20 gauge in left antecubital area, using aseptic technique. ao ,using aseptic technique. Guided ultrasound Blood collected. 22:[address] via stretcher. ao 23:18 CT Abd/Pelvis - Without Cont In Process Unspecified. EDMS 12/21 00:01 Fernando Díaz DO is Referral Physician. tw4 00:20 No provider procedures requiring assistance completed. IV discontinued, intact, ao bleeding controlled, No redness/swelling at site. Pressure dressing applied. Administered Medications: 12/20 22:50 Drug: morphine 2 mg Route: IVP; Site: left antecubital; ao 12/21 00:26 Follow up: Response: No adverse reaction ao 12/20 22:55 Drug: Zofran 4 mg Route: IVP; Site: left antecubital; ao 12/21 00:26 Follow up: Response: No adverse reaction ao Outcome: 00:01 Discharge ordered by . tw4 00:20 Discharged to home ambulatory. ao 00:20 Condition: stable 00:20 Discharge instructions given to patient, Instructed on discharge instructions, follow up and referral plans. Demonstrated understanding of instructions, follow-up care, medications, Prescriptions given X 1. 00:27 Patient left the ED. ao Signatures: Dispatcher [employer] EDCallie Brown, Michelle Napoles RN, ms, Alex, RN RN ao Moreno, Amanda am2 Alen Phillip MD MD tw4 Corrections: (The following items were deleted from the chart) 12/20 22:58 22:[address] ao ao 12/21 00:25 12/20 22:34 BP 102 / 56; Pulse 86bpm; Resp 16bpm; Pulse Ox 99% RA; Pain 0/10; ao ao
[2017-12-21 00:42] VITALS: TEMP 98
[2017-12-21 00:45] VITALS: O2SAT 99
[2017-12-21 00:47] VITALS: BP 103/51
--- NOTE | 2017-12-21 09:47 | RAD REPORT ---
EXAM DESCRIPTION: CT - Abdomen Pelvis Wo Contrast - 12/21/2017 6:48 am CLINICAL HISTORY: Right upper quadrant pain, history of cirrhosis, history of liver disease and Croh n's disease, prior TIPS shunt procedure COMPARISON: CT imaging September 30 TECHNIQUE: Axial [address] imaging of the abdomen and pelvis was performed without IV contrast. No IV contrast was given because of allergy, abnormal renal function, patient refusal or physician re quest. No oral contrast was given. All CT scans are performed using dose optimization technique as appropriate and may include automated exposure control or mA/KV adjustment according to patient size. FINDINGS: No suspicious findings in the lung bases. Liver shows a nodular capsular contour matching the history of cirrhosis. No focal lesion identifiabl e on a noncontrast study. TIPS shunt tubing is in place similar to comparison. Gallbladder is distend ed. Wall does not appear thickened or edematous. There are numerous calcified gallstones layering in the dependent portion of the gallbladder. Biliary tree does not appear to be dilated. In the duodenal C-loop in the general region of the sphincter of oddi there is a 5 mm calcification. No other simila r calcifications are seen in the system. An obstructing or partially obstructing stone would be po ssible in a patient with right upper quadrant symptoms. No pancreatic duct dilatation or acute pancreatic finding on noncontrast imaging. Borderline splenome henry at 14 cm noted. No focal splenic finding. No hydronephrosis or suspicious renal mass. A 5.2 centimeter partially exophytic posterior left renal cyst is present similar to the prior study. Patient has punctate nonobstructing pyramid or caliceal calculi also stable from prior imaging. No stone in the collecting system. Urinary bladder shows no s uspicious finding. Uterus and ovaries also without suspicious finding. No significant adrenal finding . Isodense renal masses and pyelonephritis cannot be excluded in the absence of IV contrast. No dilated bowel loops or bowel wall thickening. Right-side colon anastomotic site shows no acute com ponent. No free air, free fluid or inflammatory stranding. No mass or bulky lymphadenopathy. Postsurg ical changes are present from prior hernia repair. Mesh material shows no unexpected finding. No suspicious bony findings. Possible sphincter of oddi stone was not mentioned on the preliminary report. Discrepancy between the preliminary and final report was telephoned to doctor Rossi in the emergency department 9:43 a.m. IMPRESSION: Multiple sub centimeter gallstones within a distended gallbladder. No wall thickening or biliary tree dilatation. Biliary tree does not appear dilated. There is a 4 millimeter calcification at the duodenal C-loop in general proximity to the sphincter of oddi. In a patient with cholelithiasis, distended gallbladder and right upper quadrant symptoms, a small stone at the level of the sphincter cannot be excluded. Co rrelation is needed with any biliary obstructive laboratory or clinical findings. Cirrhotic liver changes are present. No focal lesions seen on noncontrast imaging. No ascites. Moderate stool volume throughout the colon. No acute GI process seen. Full assessment is limited is the absence of IV contrast.
== END 2017-12-21 00:27 | disposition home or self-care (01) ==
LOC: ER 21:08
DX: K59.00 Constipation, unspecified (principal); K74.60 Unspecified cirrhosis of liver; F32.9 Major depressive disorder, single episode, unspecified; Z88.3 Allergy status to other anti-infective agents; Z88.8 Allergy status to other drugs, medicaments and biological substances; Z91.048 Other nonmedicinal substance allergy status
CPT/HCPCS: 36415; 74176; 80048; 80076; 82150; 83690; 85025; 96374; 96375; 99284; J2270; J2405; J7030

== ENCOUNTER 2018-02-19 18:02 | Emergency (ER) | payer OTHER ==
--- OUTSIDE RECORDS SUMMARY | 2018-02-19 18:05 | XMS REPORT | Clinical Summary ---
:1960 Author Organization [facility] Address [address] [place] [address] Care Team Providers Name Role Phone Leon [...] mouth 3 capsule (three) times a day. lactulose 10 gram/15 Take 15 mL (10 2700 mL 3 11/07/2016 Discontinued mL (15 mL) g total) by 7 solutionIndications: mouth 3 Hepatic (three) times encephalopathy a day. potassium chloride 20 Take 40 [...] Overview: Added automatically from request for surgery [id number] Bipolar disorder, unspecified 10/09/2016 Persistent depressive disorder 10/09/2016 Alcoholic cirrhosis of liver 09/12/2016 Hepatic encephalopathy 06/26/2016 S/P TIPS (transjugular intrahepatic portosystemic shunt) 05/08/2016 Thrombocytopenia 05/04/2016 Cirrhosis of liver not due to alcohol 05/04/2016 Malnutrition 05/04/2016 Encounters Date Type Specialty Care Team Description 02/19/2018 Telephone Transplant Gene Díaz MA Sick Call 02/06/2018 Telephone Transplant Dahlia Fernandez, returning call RN 01/24/2018 Telephone Transplant Dahlia Fernandez, f/u RN 01/22/2018 Telephone Transplant AARTI Hanley Orders BENNETT Eaton 01/10/2018 Documentation Transplant Zambrano Bonny, MELD score updated to RN 15, recert due 04/12/18 01/10/2018 Telephone Transplant Gene Díaz MA Speak with Coordinator 12/30/2017 Telephone Transplant Talon, Immunization Question BENNETT Eaton 12/27/2017 Telephone Transplant Dahlia Fernandez, returning call RN 12/23/2017 Telephone Transplant Lida Arredondo Abdominal Pain MD Nellie 11/25/2017 Telephone Transplant Dahlia Fernandez, Labs f/u [...] RN 10/18/2017 Telephone Transplant Marita Gomez [facility] 10/16/2017 Telephone Transplant Renae Chadwick MA Med Inquiries 10/16/2017 Telephone Transplant Gene Díaz MA Returning Call 10/16/2017 Telephone Transplant Marita Gomez TXP [facility] 10/15/2017 Telephone Transplant Dahlia Fernandez, f/u appt RN 10/11/2017 Documentation Transplant Dahlia Fernandez, MELD score updated to RN 12;recert due 01/04/18 10/05/2017 Hospital Encounter General Internal Giselle, Hepatic - Medicine Alexis, DO encephalopathy 10/07/2017 Maximo, (Primary Dx) Elia Sheets MD 10/03/2017 Telephone Transplant Dahlia Fernandez, Inpatient in [place] AMARILIS lee 09/20/2017 Telephone Transplant Padmini Soares [...] 10;recert due 08/16/18 08/06/2017 Telephone Transplant Dahlia Fernandez Jury duty RN 07/25/2017 Telephone Transplant Padmini Soares RX Request M, MA 07/24/2017 Telephone Transplant Gene Díaz MA Sick Call 07/19/2017 Telephone Transplant Gene Díaz MA PTINR 07/18/2017 Telephone Transplant Padmini Soares PT/INR M, MA 07/11/2017 Telephone Transplant Padmini Soares Weight Gain M, MA 07/08/2017 Telephone Transplant Renae Chadwick MA Med Clarification 06/27/2017 Telephone Transplant Talon Sick Call; returning BENNETT Eaton call 06/24/2017 Refill Transplant Dahlia Fernandez, Med Refill RN 06/05/2017 Telephone Transplant Talon, Lab Orders BENNETT Eaton 05/27/2017 Telephone Transplant Dahlia Fernandez, MELD score updated to RN 14;recert due 08/27/16 05/24/2017 Telephone Transplant Padmini Soares Lab Recollect M, MA Question 05/17/2017 Telephone Transplant Dahlia Fernandez, f/u RN 05/13/2017 Telephone Transplant Bonny Zambrano, Return Call RN 05/13/2017 Telephone Transplant Telma Medrano, Pt [place] the ER [place] 05/09/2017 Emergency Emergency Nasir Cordero Acute nonintractable headache, unspecified headache type (Primary Dx); - Medicine DO Pedro Generalized abdominal pain; 05/10/2017 Constipation, unspecified constipation type; Hyperammonemia 05/09/2017 Telephone Transplant Padmini Soares Call BENNETT Reynolds 05/03/2017 Telephone Transplant Talon, Returning Callback BENNETT Eaton 05/03/2017 Telephone Transplant Dahlia Fernandez, returning call [...] Call RN 03/26/2017 Telephone Transplant Padmini Soares Questions BENNETT Reynolds 03/20/2017 Telephone Transplant Renae Chadwick MA Request to speak to coordinator 03/08/2017 Telephone Transplant Bonny Zambrano, Follow-up RN 03/04/2017 Telephone Transplant Bonny Zambrano, Return Call RN 03/04/2017 Abstract Transplant Dahlia Fernandez, RN 03/04/2017 Telephone Transplant Dahlia Fernandez, New Rx Needed RN 03/04/2017 Telephone Transplant Rhys, Med Refill Miley, AMARILIS 03/01/2017 Telephone Transplant Bonny Zambrano, F/U for recent weight RN gain 03/01/2017 Telephone Transplant Bonny Zambrano, MELD update RN notification 03/01/2017 Documentation Transplant Bonny Zambrano MELD score updated to RN 14, expires 06/01/17 02/25/2017 Telephone Transplant Dahlia Fernandez, labs f/u appt RN after 02/18/2017 Immunizations Name Dates Previously Given Next Due [...] Taken Blood Pressure 93/52 10/07/2017 3:41 PM [employer] ATT[employer]ER Pulse 82 10/07/2017 3:41 PM [employer]OWN ATT[employer]ER Temperature 36.6 C (97.8 F) 10/07/2017 3:41 PM [employer]OWN ATT[employer]ER Respiratory Rate 18 10/07/2017 3:41 PM CROWN ATT[employer]ER Oxygen Saturation 96% 10/07/2017 3:41 PM CROWN ATTACHER Inhaled Oxygen Concentration - - Weight 80.8 kg (178 lb 1.6 oz) 10/07/2017 5:00 AM [employer] ATT[employer]ER Height 149.9 cm (4' 11") 10/05/2017 7:12 PM [employer] ATT[employer]ER Body Mass Index 35.97 10/07/2017 5:00 AM CROWN ATTACHER Plan of Treatment Health Maintenance Due Date Last Done Comments COLON CANCER SCREENING 2011 SHINGRIX VACCINE (#1) 2011 INFLUENZA VACCINE 03/12/2018 05/08/2016 BREAST CANCER SCREENING 10/17/2018 10/17/2016, 10/09/2016, 10/09/2016 CERVICAL CANCER SCREENING 10/08/2019 10/08/2016 Implants Implanted Type Area Nurse Intern Device Expiration Model / Identifier Date Serial / Lot Stent Endprths Viatorr Tips 8cm 10mm - [id number] Surgical N/A: N/A W L GORE 02/06/2019 [id number] / Implanted: 05/04/2016 (Quantity not on file) Stents [id number] / [id number] Procedures Procedure Name Priority Date/Time Associated Comments Diagnosis ESTIMATED GFR Routine 11/22/2017 2:23 Results for this PM CDT procedure are in the results section. HC COMPLETE BLD COUNT Routine 11/22/2017 2:23 MCFARLANE (nonalcoholic Results for this W/AUTO DIFF PM CDT steatohepatitis) procedure are in Awaiting liver the results transplant section. PARTIAL THROMBOPLASTIN Routine 11/22/2017 2:23 MCFAR[place]ANE (nonalcoholic Results for this TIME (PTT) PM CDT steatohepatitis) procedure are in Awaiting liver the results transplant section. PROTHROMBIN TIME WITH Routine 11/22/2017 2:23 MCFARLANE (nonalcoholic Results for this INR PM CDT steatohepatitis) procedure are in Awaiting liver the results transplant section. HEPATIC FUNCTION PANEL Routine 11/22/2017 2:23 MCFAR[place] (nonalcoholic Results for this PM CDT steatohepatitis) procedure are in Awaiting liver the results transplant section. BASIC METABOLIC PANEL Routine 11/22/2017 2:23 [place] (nonalcoholic Results for this PM CDT steatohepatitis) procedure are in Awaiting liver the results transplant section. ESTIMATED GFR Routine 10/07/2017 4:00 Results for this AM [employer]OWN ATT[employer]ER procedure are in the results section. PROTHROMBIN TIME WITH Routine 10/07/2017 4:00 Results for this INR AM [employer]OWN ATTACHER procedure are in the results section. COMPREHENSIVE METABOLIC Routine 10/07/2017 4:00 Results for this PANEL AM [employer] ATT[employer]ER procedure are in the results section. HC COMPLETE BLD COUNT Routine 10/07/2017 4:00 Results for this W/AUTO DIFF AM [employer] ATT[employer]ER procedure are in the results section. POC GLUCOSE Routine 10/06/2017 9:12 Results for this PM [employer] ATT[employer]ER procedure are in the results section. POC GLUCOSE Routine 10/06/2017 8:18 Results for this AM [employer] ATT[employer]ER procedure are in the results section. URINE CULTURE Routine 10/06/2017 7:58 Results for this AM [employer] ATT[employer]ER procedure are in the results section. URINALYSIS SCREEN AND Routine 10/06/2017 7:06 Results for this MICROSCOPY, WITH REFLEX AM [employer]OWN ATT[employer]ER procedure are in TO CULTURE the results section. ESTIMATED GFR Routine 10/06/2017 5:45 Results for this AM [employer] ATT[employer]ER procedure are in the results section. PROTHROMBIN TIME WITH Routine 10/06/2017 5:45 Results for this INR AM [employer]OWN ATTACHER procedure are in the results section. COMPREHENSIVE METABOLIC Routine 10/06/2017 5:45 Results for this PANEL AM [employer]OWN ATT[employer]ER procedure are in the results section. HC COMPLETE BLD COUNT Routine 10/06/2017 5:45 Results for this W/AUTO DIFF AM [employer]OWN ATT[employer]ER procedure are in the results section. XR CHEST 1 VW PORTABLE STAT 10/05/2017 11:39 Results for this PM [employer] ATT[employer]ER procedure are in the results section. CT ABDOMEN PELVIS WO STAT 10/05/2017 11:01 Results for this CONTRAST PM [employer]OWN ATT[employer]ER procedure are in the results section. CT HEAD WO CONTRAST STAT 10/05/2017 11:01 Results for this PM [employer] ATT[employer]ER procedure are in the results section. AMMONIA LEVEL STAT 10/05/2017 9:46 Results for this PM [employer] ATT[employer]ER procedure are in the results section. ESTIMATED GFR STAT 10/05/2017 9:46 Results for this PM [employer] ATT[employer]ER procedure are in the results section. LIPASE LEVEL STAT 10/05/2017 9:46 Results for this PM [employer] ATT[employer]ER procedure are in the results section. COMPREHENSIVE METABOLIC STAT 10/05/2017 9:46 Results for this PANEL PM [employer]OWN ATT[employer]ER procedure are in the results section. PARTIAL THROMBOPLASTIN STAT 10/05/2017 9:46 Results for this TIME (PTT) PM [employer] ATT[employer]ER procedure are in the results section. PROTHROMBIN TIME WITH STAT 10/05/2017 9:46 Results for this INR PM CROWN ATTACHER procedure are in the results section. HC COMPLETE BLD COUNT STAT 10/05/2017 9:46 Results for this W/AUTO DIFF PM [employer]OWN ATTACHER procedure are in the results section. CT RENAL STONE PROTOCOL STAT 05/10/2017 12:57 Results for this AM CDT procedure are in the results section. CT HEAD WO CONTRAST STAT 05/10/2017 12:56 Results for this AM CDT procedure are in the results section. ESTIMATED GFR Routine 05/09/2017 9:02 Results for this PM CDT procedure are in the results section. COMPREHENSIVE METABOLIC Routine 05/09/2017 9:02 Results for this PANEL PM CDT procedure are in the results section. HC COMPLETE BLD COUNT Routine 05/09/2017 9:02 Results for this W/AUTO DIFF PM CDT procedure are in the results section. PROTHROMBIN TIME WITH Routine 05/09/2017 9:02 Results for this INR PM CDT procedure are in the results section. LIPASE LEVEL Routine 05/09/2017 9:02 Results for this PM CDT procedure are in the results section. PARTIAL THROMBOPLASTIN Routine 05/09/2017 9:02 Results for this TIME (PTT) PM CDT procedure are in the results section. LACTIC ACID LEVEL Routine 05/09/2017 9:02 Results for this PM CDT procedure are in the results section. AMMONIA LEVEL Routine 05/09/2017 9:02 Results for this PM CDT procedure are in the results section. MRI ABDOMEN W WO Routine 04/30/2017 1:30 Allergy to iodine Results for this CONTRAST PM CDT procedure are in the results section. after 02/18/2017 Results Estimated GFR (11/22/2017 2:23 PM)Only the most recent of5 resultswithin the time period is included. GFR Non Af Amer 46 (A) mL/min/1.73 m2 [facility] DEPARTMENT OF PATHOLOGY AND [employer] MEDICINE GFR Af Amer 56 (A) mL/min/1.73 m2 [facility] DEPARTMENT OF Comment: PATHOLOGY AND [facility] Chronic kidney disease: <60 mL/min/1.73m2 MEDICINE Kidney failure: <15 mL/min/1.73m2 The estimated GFR is calculated from the IDMS-traceable Modification of Diet in Renal Disease Equation. The accuracy of the calculation is poor when the creatinine is normal. Calculated values >90 mL/min/1.73m2 are not reported. This equation has not been validated in children (<18 years), women, the elderly (>70 years), or ethnic groups other than Caucasians and Americans. Specimen Plasma specimen Performing Organization Address [facility] Phone Number [facility] DEPARTMENT OF PATHOLOGY AND [address] [place] [address] Partial thromboplastin time, activated (11/22/2017 2:23 PM)Only the most recent of3 resultswithin the time period is included. PTT 34.8 23.0 - 36.0 sec [facility] DEPARTMENT OF PATHOLOGY Comment: AND [facility] PTT therapeutic range for unfractionated heparin is 61.0-112.0 seconds which corresponds to Anti-Xa 0.3-0.7 U/ml. Specimen Blood Performing Organization Address [facility] Phone Number [facility] DEPARTMENT OF PATHOLOGY AND [address] [place] [address] Prothrombin time with INR (11/22/2017 2:23 PM)Only the most recent of5 resultswithin the time period is included. Prothrombin time 16.8 (H) 12.0 - 15.0 sec [facility] DEPARTMENT OF PATHOLOGY AND [employer] [facility] INR 1.3 [facility] DEPARTMENT OF Comment: PATHOLOGY AND GENOMIC The International Normalized Ratio (INR) is a therapeutic MEDICINE monitoring tool for patients who are stable on oral anticoagulant therapy. An INR of 2.0-3.0 is suggested for deep vein thrombosis/pulmonary embolism. Specimen Blood Performing Organization Address [facility]/Zipcode Phone Number [facility] DEPARTMENT OF PATHOLOGY AND [address] [place] [address] GENOMIC MEDICINE CBC with platelet and differential (11/22/2017 2:23 PM)Only the most recent of5 resultswithin the time period is included. WBC 6.30 4.50 - 11.00 k/uL [facility] DEPARTMENT OF PATHOLOGY AND GENOMIC MEDICINE RBC 3.49 (L) 4.20 - 5.50 m/uL [facility] DEPARTMENT OF PATHOLOGY AND GENOMIC MEDICINE HGB 10.2 (L) 12.0 - 16.0 g/dL [facility] DEPARTMENT OF PATHOLOGY AND GENOMIC MEDICINE HCT 31.7 (L) 37.0 - 47.0 % [facility] DEPARTMENT OF PATHOLOGY AND GENOMIC MEDICINE MCV 90.8 82.0 - 100.0 fL [facility] DEPARTMENT OF PATHOLOGY AND GENOMIC MEDICINE MCH 29.2 27.0 - 34.0 pg [facility] DEPARTMENT OF PATHOLOGY AND GENOMIC MEDICINE MCHC 32.2 31.0 - 37.0 g/dL [facility] DEPARTMENT OF PATHOLOGY AND GENOMIC MEDICINE RDW - SD 50.7 37.0 - 55.0 fL [facility] DEPARTMENT OF PATHOLOGY AND GENOMIC MEDICINE MPV 11.4 8.8 - 13.2 fL [facility] DEPARTMENT OF PATHOLOGY AND GENOMIC MEDICINE Platelet count 86 (L) 150 - 400 k/uL [facility] DEPARTMENT OF PATHOLOGY AND GENOMIC MEDICINE Nucleated RBC 0.00 /100 WBC [facility] DEPARTMENT OF PATHOLOGY AND GENOMIC MEDICINE Neutrophils 71.3 (H) 39.0 - 69.0 % [facility] DEPARTMENT OF PATHOLOGY AND GENOMIC MEDICINE Lymphocytes 16.0 (L) 25.0 - 45.0 % [facility] DEPARTMENT OF PATHOLOGY AND GENOMIC MEDICINE Monocytes 10.5 (H) 0.0 - 10.0 % [facility] DEPARTMENT OF PATHOLOGY AND GENOMIC MEDICINE Eosinophils 1.1 0.0 - 5.0 % [facility] DEPARTMENT OF PATHOLOGY AND GENOMIC MEDICINE Basophils 0.6 0.0 - 1.0 % [facility] DEPARTMENT OF PATHOLOGY AND GENOMIC MEDICINE Immature granulocytes 0.5Comment: 0.0 - 1.0 % [facility] DEPARTMENT OF "Immature PATHOLOGY AND GENOMIC granulocytes" MEDICINE (promyelocytes, myelocytes, metamyelocytes) Specimen Blood Performing Organization Address City/[facility]/Zipcode Phone Number [facility] DEPARTMENT OF PATHOLOGY AND [address] [place] [address] [employer] MEDICINE Hepatic function panel (11/22/2017 2:23 PM) Albumin 3.4 (L) 3.5 - 5.0 g/dL [facility] DEPARTMENT OF PATHOLOGY AND GENOMIC MEDICINE Total bilirubin 1.0 0.0 - 1.2 mg/dL [facility] DEPARTMENT OF PATHOLOGY AND GENOMIC MEDICINE Bilirubin direct 0.4 (H) 0.0 - 0.3 mg/dL [facility] DEPARTMENT OF PATHOLOGY AND GENOMIC MEDICINE Alkaline phosphatase 72 35 - 104 U/L [facility] DEPARTMENT OF PATHOLOGY AND GENOMIC MEDICINE Protein 7.5 6.3 - 8.3 g/dL [facility] DEPARTMENT OF Comment: PATHOLOGY AND GENOMIC [place] 4.6-7.0 g/dL MEDICINE 1 week 4.4-7.6 g/dL 7 months-1year5.1-7.3 g/dL 1-2 years5.6-7.5 g/dL >3 years6.0-8.0 g/dL 18-150 6.3-8.3 g/dL ALT 10 5 - 50 U/L [facility] DEPARTMENT OF PATHOLOGY AND GENOMIC MEDICINE AST 25 10 - 35 U/L [facility] DEPARTMENT OF PATHOLOGY AND GENOMIC MEDICINE Specimen Plasma specimen Performing Organization Address City/[facility] Phone Number [facility] AND [place] [address] [facility] Basic metabolic panel (11/22/2017 2:23 PM) Sodium 140 135 - 148 mEq/L [facility] DEPARTMENT OF PATHOLOGY AND GENOMIC MEDICINE Potassium 4.2 3.5 - 5.0 mEq/L [facility] DEPARTMENT OF PATHOLOGY AND GENOMIC MEDICINE Chloride 104 98 - 112 mEq/L [facility] DEPARTMENT OF PATHOLOGY AND GENOMIC MEDICINE CO2 22 (L) 24 - 31 mEq/L [facility] DEPARTMENT OF PATHOLOGY AND GENOMIC MEDICINE Anion gap 14 7 - 15 mEq/L [facility] DEPARTMENT OF PATHOLOGY Comment: AND [facility] Starting from November , anion gap calculation no longer incorporates potassium. Please note the change. BUN 17 6 - 20 mg/dL [facility] DEPARTMENT OF PATHOLOGY AND GENOMIC MEDICINE Creatinine 1.2 (H) 0.5 - 0.9 mg/dL [facility] DEPARTMENT OF PATHOLOGY AND GENOMIC MEDICINE Glucose 89 65 - 99 mg/dL [facility] DEPARTMENT OF PATHOLOGY AND GENOMIC MEDICINE Calcium 9.8 8.3 - 10.2 mg/dL [facility] DEPARTMENT OF PATHOLOGY AND GENOMIC MEDICINE Specimen Plasma specimen Performing Organization Address City/[facility] Phone Number [facility] DEPARTMENT OF PATHOLOGY AND [address] [place] [phone] [facility] Comprehensive metabolic panel (10/07/2017 4:00 AM)Only the most recent of4 resultswithin the time period is included. Sodium 143 135 - 148 mEq/L [facility] DEPARTMENT OF PATHOLOGY AND GENOMIC MEDICINE Potassium 3.7 3.5 - 5.0 mEq/L [facility] DEPARTMENT OF PATHOLOGY AND GENOMIC MEDICINE Chloride 107 98 - 112 mEq/L [facility] DEPARTMENT OF PATHOLOGY AND GENOMIC MEDICINE CO2 22 (L) 24 - 31 mEq/L [facility] DEPARTMENT OF PATHOLOGY AND GENOMIC MEDICINE Anion gap 14 7 - 15 mEq/L [facility] DEPARTMENT OF Comment: PATHOLOGY AND GENOMIC Starting from November , anion gap calculation MEDICINE no longer incorporates potassium. Please note the change. BUN 14 6 - 20 mg/dL [facility] DEPARTMENT OF PATHOLOGY AND GENOMIC MEDICINE Creatinine 1.1 (H) 0.5 - 0.9 mg/dL [facility] DEPARTMENT OF PATHOLOGY AND GENOMIC MEDICINE Glucose 91 65 - 99 mg/dL [facility] DEPARTMENT OF PATHOLOGY AND GENOMIC MEDICINE Calcium 9.3 8.3 - 10.2 mg/dL [facility] DEPARTMENT OF PATHOLOGY AND GENOMIC MEDICINE Protein 6.4 6.3 - 8.3 g/dL [facility] DEPARTMENT OF Comment: PATHOLOGY AND GENOMIC 4.6-7.0 g/dL MEDICINE 1 week 4.4-7.6 g/dL 7 months-1year5.1-7.3 g/dL 1-2 years5.6-7.5 g/dL >3 years6.0-8.0 g/dL 18-150 6.3-8.3 g/dL Albumin 3.1 (L) 3.5 - 5.0 g/dL [facility] DEPARTMENT OF PATHOLOGY AND GENOMIC MEDICINE A/G ratio 0.9 0.7 - 3.8 [facility] DEPARTMENT OF PATHOLOGY AND GENOMIC MEDICINE Alkaline phosphatase 53 35 - 104 U/L [facility] DEPARTMENT OF PATHOLOGY AND GENOMIC MEDICINE AST 21 10 - 35 U/L [facility] DEPARTMENT OF PATHOLOGY AND GENOMIC MEDICINE ALT <5 (A) 5 - 50 U/L [facility] DEPARTMENT OF PATHOLOGY AND GENOMIC MEDICINE Total bilirubin 1.0 0.0 - 1.2 mg/dL [facility] DEPARTMENT OF PATHOLOGY AND GENOMIC MEDICINE Specimen Plasma specimen Performing Organization Address City/State/Zipcode Phone Number [facility] DEPARTMENT OF PATHOLOGY AND [address] [place] [phone] [facility] POC glucose (10/06/2017 9:12 PM)Only the most recent of2 resultswithin the time period is included. POC glucose 95 65 - 99 mg/dL [facility] DEPARTMENT OF PATHOLOGY Comment: AND GENOMIC MEDICINE [facility] Notified RN Meter ID: [id number] Supervisor Nutritional Yeast: Pardeep Benedict Performing Organization Address City/[facility]/Zipcode Phone Number [facility] DEPARTMENT OF PATHOLOGY AND [address] [place] [address] Urine culture (10/06/2017 7:58 AM) Urine culture SEE COMMENTComment: Bacteriuria [facility] DEPARTMENT OF PATHOLOGY screen negative. AND [facility] Performing Organization Address City/[facility] Phone Number [facility] DEPARTMENT OF PATHOLOGY AND [address] [place] [address] Urinalysis screen and microscopy, with reflex to culture (10/06/2017 7:06 AM) Specimen site Clean catch [facility] DEPARTMENT OF PATHOLOGY AND GENOMIC MEDICINE Color, UA Cortney [facility] DEPARTMENT OF PATHOLOGY AND GENOMIC MEDICINE Appearance, UA Hazy [facility] DEPARTMENT OF PATHOLOGY AND GENOMIC MEDICINE Specific gravity, UA 1.021 1.001 - 1.035 [facility] DEPARTMENT OF PATHOLOGY AND GENOMIC MEDICINE pH, UA 5.0 5.0 - 8.5 [facility] DEPARTMENT OF PATHOLOGY AND GENOMIC MEDICINE Protein, UA Negative Negative [facility] DEPARTMENT OF PATHOLOGY AND GENOMIC MEDICINE Glucose, UA Negative Negative [facility] DEPARTMENT OF PATHOLOGY AND GENOMIC MEDICINE Ketones, UA Negative Negative [facility] DEPARTMENT OF PATHOLOGY AND GENOMIC MEDICINE Bilirubin, UA Negative Negative [facility] DEPARTMENT OF PATHOLOGY AND GENOMIC MEDICINE Blood, UA Negative Negative [facility] DEPARTMENT OF PATHOLOGY AND GENOMIC MEDICINE Nitrite, UA Negative Negative [facility] DEPARTMENT OF PATHOLOGY AND GENOMIC MEDICINE Urobilinogen, UA 4.0 (A) <2.0 [facility] DEPARTMENT OF PATHOLOGY AND GENOMIC MEDICINE Leukocyte esterase, UA Negative Negative [facility] DEPARTMENT OF PATHOLOGY AND GENOMIC MEDICINE Epithelial cells, UA 10 /HPF [facility] DEPARTMENT OF PATHOLOGY AND GENOMIC MEDICINE Round epithelial cells, UA <1 0 - 1 /HPF [facility] DEPARTMENT OF PATHOLOGY AND GENOMIC MEDICINE WBC, UA 2 0 - 4 /HPF [facility] DEPARTMENT OF PATHOLOGY AND GENOMIC MEDICINE RBC, UA 1 0 - 2 /HPF [facility] DEPARTMENT OF PATHOLOGY AND GENOMIC MEDICINE Bacteria, UA Few None seen [facility] DEPARTMENT OF PATHOLOGY AND GENOMIC MEDICINE Yeast, UA None seen [facility] DEPARTMENT OF PATHOLOGY AND GENOMIC MEDICINE Yeast with pseudohyphae, UA None seen [facility] DEPARTMENT OF PATHOLOGY AND GENOMIC MEDICINE Hyaline casts, UA 1 /LPF [facility] DEPARTMENT OF PATHOLOGY AND GENOMIC MEDICINE Specimen Urine Performing Organization Address [facility] Phone Number [facility] DEPARTMENT OF PATHOLOGY AND [address] [place] [address] GENOMIC MEDICINE XR Chest 1 Vw Portable (10/05/2017 11:39 PM) Narrative Performed At Examination:XR CHEST 1 VW PORTABLE RADIANT Clinical History:decompensated cirrhosis Comparison: None. Technique: Single frontal view of the chest is obtained. Findings: The lungs are free of infiltrate. The heart size is normal. No pleural effusion is seen. Impression: No active cardiopulmonary disease identified. [facility]-[id number] Procedure Note Hm Interface, Radiology Results Incoming - 10/05/2017 11:44 PM CROWN ATTACHER Examination: XR CHEST 1 VW PORTABLE Clinical History: decompensated cirrhosis Comparison: None. Technique: Single frontal view of the chest is obtained. Findings: The lungs are free of infiltrate. The heart size is normal. No pleural effusion is seen. Impression: No active cardiopulmonary disease identified. [facility]-[id number] Performing Organization Address [facility] Phone Number [facility] [address] [place] [address] CT Abdomen Pelvis Wo Contrast (10/05/2017 11:01 PM) Narrative Performed At Examination:CT ABDOMEN PELVIS WO CONTRAST [facility] Clinical History: abdominal pain Comparison: 05/10/2017 Findings: [...] recurrent hernia. 4. Bilateral nonobstructing intrarenal calculi. [facility]-[id number] Procedure Note Hm Interface, Radiology Results Incoming - 10/05/2017 11:21 PM CROWN ATTACHER Examination: CT ABDOMEN PELVIS WO CONTRAST Clinical [...] recurrent hernia. 4. Bilateral nonobstructing intrarenal calculi. [facility]-[id number] Performing Organization Address City/State/Zipcode Phone Number [facility] [address] [place] [address] CT Head Wo Contrast (10/05/2017 11:01 PM)Only the most recent of2 resultswithin the time period is included. Narrative Performed At EXAMINATION: CT HEAD WO CONTRAST [facility] CLINICAL HISTORY: ams COMPARISON:05/10/[address] TECHNIQUE: [...] detailed above with no acute intracranial abnormality. [facility]-[id number] Procedure Note Interface, Radiology Results Incoming - 10/05/2017 11:13 PM CROWN ATTACHER EXAMINATION: CT HEAD WO CONTRAST CLINICAL HISTORY: [...] detailed above with no acute intracranial abnormality. [facility]-[id number] Performing Organization Address City/State/Zipcode Phone Number [facility] [address] [place] [address] Lipase level (10/05/2017 9:46 PM)Only the most recent of2 resultswithin the time period is included. Lipase 22 13 - 60 U/L [facility] DEPARTMENT OF PATHOLOGY AND GENOMIC MEDICINE Specimen Plasma specimen Performing Organization Address City/[facility] Phone Number [facility] DEPARTMENT OF PATHOLOGY AND [address] [place], [place] [id number] [place] [address] Ammonia level (10/05/2017 9:46 PM)Only the most recent of2 resultswithin the time period is included. Ammonia 77 (H) 11 - 51 umol/L [facility] DEPARTMENT OF PATHOLOGY AND GENOMIC MEDICINE Specimen Blood Performing Organization Address [facility] Phone Number [facility] DEPARTMENT OF PATHOLOGY AND [address] Renal Stone Protocol (05/10/2017 12:57 AM) Narrative Performed At CT RENAL ST[facility]OCOL [facility]INICAL INDICATION:abd paincirrhosis TECHNIQUE: Multidetector CT of [...] 4. Moderate fecal material throughout the colon. [facility]-[id number] Procedure Note [facility], Radiology Results Incoming - 05/10/2017 1:08 AM [...] 4. Moderate fecal material throughout the colon. [facility]-[id number] Performing Organization Address City/[facility]/Zipcode Phone Number [facility] [address] [place] [address] Lactic acid level (05/09/2017 9:02 PM) Lactic acid 3.3 (H) 0.5 - 2.2 mmol/L [facility] DEPARTMENT OF PATHOLOGY AND GENOMIC MEDICINE Specimen Plasma specimen Narrative Performed At 2X EXTRA GREEN [facility] DEPARTMENT OF PATHOLOGY AND GENOMIC 2X EXTRA LAV MEDICINE 1X EXTRA BLUE Performing Organization Address City/[facility] Phone Number [facility] DEPARTMENT OF PATHOLOGY AND [address] [place] [phone] [facility] MEDICINE MRI Abdomen W Wo Contrast (04/30/2017 1:30 PM) Narrative Performed At EXAMINATION:MRI ABDOMEN W WO CONTRAST [facility] CLINICAL HISTORY:Z88.8 Allergy status to other drugsmedicaments [...] HCC. 2.Patent portal vein. Status post TIPS. [id number] Procedure Note Interface, Radiology Results Incoming - 04/30/2017 1:47 PM [...] 2. Patent portal vein. Status post TIPS. [facility]-[id number] Performing Organization Address City/State/Zipcode Phone Number [facility] [address] [facility] [place] [address] after 02/18/2017 Insurance Payer Benefit Plan / Group Subscriber ID Type Phone Address MEDICARE MEDICARE PART A AND B xxxxxxxxxx Medicare [place], [place] MEDICAID MEDICAID xxxxxxxxx Medicaid Home: [address] [facility] [phone] [place] [phone] BELLA BARRON Transplant Self 1960 Home: [address] [place], [place] [id number] [place] [phone]
--- OUTSIDE RECORDS SUMMARY | 2018-02-19 18:05 | XMS REPORT ---
:1960 Author Organization eClinicalWorks Care Team Providers Name Role Phone Fernando Díaz Provider Role Unavailable Allergies No Known Allergies Problems Problem Type Condition Code Onset Dates Condition Status Problem Kidney stone N20.0 Active Problem Bipolar disorder F31.9 Active Problem Cirrhosis of liver K74.60 Active Problem Inflammatory bowel disease K52.9 Active Problem Anxiety F41.9 Active Problem Incontinence of feces, unspecified R15.9 Active fecal incontinence type Problem Chronic pain G89.29 Active Problem Thrombocytopenia D69.6 Active Problem Depression F32.9 Active Problem Fatigue R53.83 Active Assessment Anxiety F41.9 Active Assessment Depression F32.9 Active Assessment Restless legs syndrome G25.81 Active Assessment Bipolar disorder F31.9 Active Assessment Inflammatory bowel disease K52.9 Active Problem Irritable bowel syndrome without K58.9 Active diarrhea Assessment Cirrhosis of liver K74.60 Active Problem Seasonal and perennial allergic J30.9 Active rhinitis Assessment Incontinence of feces, unspecified R15.9 Active fecal incontinence type Problem Restless legs syndrome G25.81 Active Medications Medication Code Code Instructions Start End Status Dosage System Date Date Gabapentin ND 05060308265 100 MG Orally Active 2 cap in Three times a AM 3 caps day PM Cyanocobalamin ND 83418737553 1000 MCG/ML Active INJECT 1 ML IN MUSCLE ONCE A MONTH Furosemide ND 66798906369 40 MG Orally Active 1 tablet Once a day Seroquel ND 39842384897 50 MG Orally Active 1 tablet Once a day Ultram ND 63923968811 50 MG Orally Active 1 tablet every 6 hrs as needed Folic Acid ND 72928188963 1 MG Orally Active 1 tablet Once a day Spironolactone ND 37493485421 25 MG Orally Active 1 tablet Once a day with food Zofran ODT ND 07343025242 4 MG Orally Active 1 tablet every 8 hrs on the tongue and allow to dissolve Pantoprazole ND 76634445362 40 MG Orally Active 1 tablet Sodium Once a day Xifaxan ND 61109373105 550 MG Orally Active 1 tablet Twice a day Results No Known Results Summary Purpose eClinicalWorks Submission
[2018-02-19 18:51] LABS: Absolute Lymphocytes (CBC) 1.1 K/uL (0.7-4.9); Absolute Monocytes 0.5 K/uL (0.1-1.3); Absolute Neutrophil 3.6 K/uL (1.8-8.0); Basophils % 0.5 % (0-1.3); Eosinophils % 3.9 % (0-4.4); Hematocrit 30.9 % (36.0-45.0); Lymphocytes % 20.5 % (15.3-44.8); MCH 31.7 pg (27.0-35.0); MCV 90.9 fL (80-100); MPV 8.6 fL (7.6-11.3); Monocytes % 9.7 % (3.3-12.3)
[2018-02-19 18:58] LABS: Protime INR 1.18
[2018-02-19 19:37] LABS: ALT/SGPT 15 U/L (12-78); AST/SGOT 23 U/L (15-37); Albumin 3.1 g/dL (3.4-5.0); Alkaline Phosphatase 73 U/L (45-117); BUN Blood Urea Nitrogen 15 mg/dL (7-18); Bicarbonate 26 mmol/L (21-32); Bilirubin Direct 0.4 mg/dL (0-0.2); Bilirubin Total 1.1 mg/dL (0.2-1.0); CKMB Creatine Kinase MB < 1.0 ng/mL (0.3-3.6); Creatine Phosphokinase 55 U/L (26-192); Glucose Level 108 mg/dL (74-106); Magnesium 1.8 mg/dL (1.8-2.4); NT PRO-BNP 87 pg/mL (<125); Potassium 3.9 mmol/L (3.5-5.1); Protein, Total 6.9 g/dL (6.4-8.2); Sodium Level 141 mmol/L (136-145)
[2018-02-19 19:48] LABS: Urine Blood TRACE (NEG); Urine Glucose NEGATIVE (NEG); Urine Protein NEGATIVE (NEG); Urine pH 5.5 (5.0-7.0)
[2018-02-19 19:51] LABS: Anisocytosis 1+; Blood Morphology Comment NOTED (NOT SEEN); Platelet Estimate DECR; Urine White Blood Cell Casts OK
--- NOTE | 2018-02-19 19:51 | RAD REPORT ---
EXAM DESCRIPTION: Bere Single View02/19/2018 7:36 pm CLINICAL HISTORY: Chest pain COMPARISON: December 2017 FINDINGS: The lungs appear clear of acute infiltrate. The heart is normal size IMPRESSION: No acute abnormalities displayed
--- NOTE | 2018-02-19 20:18 | ER ---
Nurse's Notes [facility] Name: Bella Barron Age: 57 yrs Sex: Female : 1960 Arrival Date: 02/19/2018 Time: 18:05 Bed 17 Private MD: Fernando Díaz Diagnosis: Chest pain, unspecified Presentation: 02/19 18:09 Presenting complaint: Patient states: chest pain that started for a week; reports SOB: hj non radiating; heavy type of pain; reports nausea and vomiting;. Transition of care: patient was not received from another setting of care. Onset of symptoms was February 19, 2018. Risk Assessment: Do you want to hurt yourself or someone else? Patient reports no desire to harm self or others. Initial Sepsis Screen: Does the patient meet any 2 criteria? No. Patient's initial sepsis screen is negative. Does the patient have a suspected source of infection? No. Patient's initial sepsis screen is negative. Care prior to arrival: None. 18:09 Method Of Arrival: Ambulatory 18:09 Acuity: OLEG 3 hj Triage Assessment: 18:11 General: Appears in no apparent distress. uncomfortable, Behavior is calm, cooperative, hj appropriate for age. Pain: Complains of pain in chest. Cardiovascular: Reports chest pain, Heart tones S1 S2 present Capillary refill < 3 seconds Patient's skin is warm and dry. Historical: - Allergies: 18:11 Iodine; hj 18:11 Phenergan; hj 18:11 Rocephin; hj - Home Meds: 18:11 furosemide 40 mg Oral tab 1 tab once daily [Active]; lactulose 10 gram/15 mL Oral soln hj 30 mL twice a day [Active]; pantoprazole 40 mg Oral TbEC 1 tab once daily [Active]; quetiapine Oral 1 tab nightly [Active]; spironolactone 100 mg Oral tab 1 tab once daily [Active]; tramadol 50 mg Oral tab 1 tab as needed [Active]; Xifaxan 550 mg Oral tab 1 tab 2 times per day [Active]; - PMHx: 18:11 Cirrhosis; Crohn's; Depression; Liver disease; ocd; hj - PSHx: 18:11 TIPS procedure; hj - Immunization history:: Adult Immunizations up to date. - Social history:: Smoking status: Patient/guardian denies using tobacco, Patient/guardian denies using alcohol. - Ebola Screening: : Patient negative for fever greater than or equal to 101.5 degrees Fahrenheit, and additional compatible Ebola Virus Disease symptoms Patient denies exposure to infectious person Patient denies travel to an Ebola-affected area in the 21 days before illness onset. Screenin:13 Abuse screen: Denies threats or abuse. Denies injuries from another. Nutritional hj screening: No deficits noted. Tuberculosis screening: No symptoms or risk factors identified. Fall Risk None identified. Assessment: 18:13 Pain: Pain does not radiate. Pain began week. hj 18:39 General: Appears in no apparent distress. comfortable, Behavior is calm, cooperative, mb3 appropriate for age. Pain: Complains of pain in xyphoid area Pain does not radiate. Neuro: No deficits noted. Cardiovascular: Reports chest pain, Heart tones S1 S2 present Capillary refill < 3 seconds Patient's skin is warm and dry. Respiratory: No deficits noted. Airway is patent Respiratory effort is even, unlabored, Respiratory pattern is regular, symmetrical, Breath sounds are clear bilaterally. GI: No deficits noted. No signs and/or symptoms were reported involving the gastrointestinal system. : No deficits noted. No signs and/or symptoms were reported regarding the genitourinary system. Vital Signs: 18:11 BP 111 / 64; Pulse 90; Resp 18; Temp 98.4(O); Pulse Ox 99% on R/A; Weight 77.11 kg; hj Height 4 ft. 11 in. (149.86 cm); Pain 8/10; 19:00 BP 117 / 62; Pulse 82; Resp 17; Pulse Ox 99% ; mb3 19:00 BP 94 / 67; Pulse 80; Resp 18; Pulse Ox 98% on R/A; mb3 18:11 Body Mass Index 34.34 (77.11 kg, 149.86 cm) ED Course: 18:05 Patient arrived in ED. rg4 18:05 Fernando Díaz DO is Private Physician. rg4 18:10 Triage completed. hj 18:13 Arm band placed on left wrist. hj 18:13 Patient has correct armband on for positive identification. Placed in gown. Bed in low hj position. Call light in reach. Side rails up X 1. outdoor emergency care technician on. Pulse ox on. NIBP on. 18:13 Patient maintains SpO2 saturation greater than 95% on room air. hj 18:17 Zion Reese, RN is Primary Nurse. mb3 18:37 Radiology exam delayed due to IV insertion attempt and/or patient not having bb2 appropriate IV at this time. 18:38 Ela Alvarez FNP-C is PHCP. snw 18:38 Beau Encarnacion MD is Attending Physician. snw 18:40 Clement Pena NP is PHCP. pm1 18:40 Beau Encarnacion MD is Attending Physician. pm1 18:46 Initial lab(s) drawn, by md, sent to lab. EKG done, by ED staff, reviewed by Beau Encarnacion MD. Inserted saline lock: 20 gauge in right antecubital area, using aseptic technique. Blood collected. 18:47 Adult w/ patient. Warm blanket given. Pillow given. 5 18:47 NT PRO-BNP Sent. 5 18:47 PT-INR Sent. 5 18:47 Ptt, Activated Sent. 5 18:47 Troponin (emerg Dept Use Only) Sent. 5 18:48 Basic Metabolic Panel Sent. mh5 18:48 CBC with Diff Sent. mh5 18:48 Ckmb Sent. mh5 18:48 CPK Sent. 5 18:48 LFT's Sent. 5 18:48 Magnesium Sent. mh5 19:34 XRAY Chest (1 view) In Process Unspecified. EDMS 21:01 No provider procedures requiring assistance completed. IV discontinued, intact, mb3 bleeding controlled, No redness/swelling at site. Pressure dressing applied. Administered Medications: 21:00 Drug: Doss (7.5 mg-325 mg) 1 tabs Route: PO; mb3 21:00 Follow up: Response: Medication administered at discharge. mb3 Outcome: 20:17 Discharge ordered by MD. pm1 21:01 Discharged to home ambulatory, with family. mb3 21:01 Condition: stable 21:01 Discharge instructions given to patient, family, Instructed on discharge instructions, follow up and referral plans. medication usage, Demonstrated understanding of instructions, follow-up care, medications, Prescriptions given X 1. 21:02 Patient left the ED. mb3 Signatures: Dispatcher [employer] EDIN Ela Alvarez FNP-C DRAGLINE MECHANIC-Csnw Pete Storm RN RN hj Clement Pena, JOSÉ PERSONAL INSURANCE ADVISOR pm1 Merle House rg4 Michelle Uribe 5 Cindy Riley bb2 Zion Reese RN RN mb3 Corrections: (The following items were deleted from the chart) 18:16 18:11 Pulse 90bpm; Resp 18bpm; Pulse Ox 99% RA; Temp 98.4F Oral; 77.11 kg; Height 4 ft. hj 11 in.; BMI: 34.3; Pain 8/10; hj
--- NOTE | 2018-02-19 20:18 | EDPHYS ---
Physician Documentation [facility] Name: Bella Barron Age: 57 yrs Sex: Female : 1960 Arrival Date: 02/19/2018 Time: 18:05 Bed 17 Private MD: Arjun [facility] ED Physician Beau Encarnacion HPI: 02/19 19:00 This 57 yrs old Female presents to ER via Ambulatory with complaints of Chest pm1 Pain. 19:00 The patient or guardian reports chest pain that is located primarily in the anterior pm1 aspect of right upper chest and anterior aspect of left upper chest. Onset: 1 week(s) ago. The pain does not radiate. Associated signs and symptoms: Pertinent negatives: abdominal pain, cough, headache, nausea, shortness of breath, vomiting. The chest pain is described as sharp. Duration: The patient or guardian reports a single episode. Modifying factors: the symptoms are aggravated by cough, deep breath, palpation of area. The patient has not recently seen a physician. Historical: - Allergies: 18:11 Iodine; hj 18:11 Phenergan; hj 18:11 Rocephin; hj - Home Meds: 18:11 furosemide 40 mg Oral tab 1 tab once daily [Active]; lactulose 10 gram/15 mL Oral soln hj 30 mL twice a day [Active]; pantoprazole 40 mg Oral TbEC 1 tab once daily [Active]; quetiapine Oral 1 tab nightly [Active]; spironolactone 100 mg Oral tab 1 tab once daily [Active]; tramadol 50 mg Oral tab 1 tab as needed [Active]; Xifaxan 550 mg Oral tab 1 tab 2 times per day [Active]; - PMHx: 18:11 Cirrhosis; Crohn's; Depression; Liver disease; ocd; hj - PSHx: 18:11 TIPS procedure; hj - Immunization history:: Adult Immunizations up to date. - Social history:: Smoking status: Patient/guardian denies using tobacco, Patient/guardian denies using alcohol. - Ebola Screening: : Patient negative for fever greater than or equal to 101.5 degrees Fahrenheit, and additional compatible Ebola Virus Disease symptoms Patient denies exposure to infectious person Patient denies travel to an Ebola-affected area in the 21 days before illness onset. ROS: 19:00 Constitutional: Negative for fever, chills, and weight loss, Eyes: Negative for injury, pm1 pain, redness, and discharge, ENT: Negative for injury, pain, and discharge, Neck: Negative for injury, pain, and swelling. 19:00 Respiratory: Negative for shortness of breath, cough, wheezing, and pleuritic chest pain, Abdomen/GI: Negative for abdominal pain, nausea, vomiting, diarrhea, and constipation, Back: Negative for injury and pain, : Negative for injury, bleeding, discharge, and swelling, MS/Extremity: Negative for injury and deformity, Skin: Negative for injury, rash, and discoloration, Neuro: Negative for headache, weakness, numbness, tingling, and seizure. 19:00 Cardiovascular: Positive for chest pain, Negative for edema, palpitations. Exam: 19:00 Constitutional: This is a well developed, well nourished patient who is awake, alert, pm1 and in no acute distress. Head/Face: Normocephalic, atraumatic. Eyes: Pupils equal round and reactive to light, extra-ocular motions intact. Lids and lashes normal. Conjunctiva and sclera are non-icteric and not injected. Cornea within normal limits. Periorbital areas with no swelling, redness, or edema. ENT: Nares patent. No nasal discharge, no septal abnormalities noted. Tympanic membranes are normal and external auditory canals are clear. Oropharynx with no redness, swelling, or masses, exudates, or evidence of obstruction, uvula midline. Mucous membranes moist. Neck: Trachea midline, no thyromegaly or masses palpated, and no cervical lymphadenopathy. Supple, full range of motion without nuchal rigidity, or vertebral point tenderness. No Meningismus. Chest/axilla: Normal chest wall appearance and motion. Nontender with no deformity. No lesions are appreciated. 19:00 Respiratory: Lungs have equal breath sounds bilaterally, clear to auscultation and percussion. No rales, rhonchi or wheezes noted. No increased work of breathing, no retractions or nasal flaring. Abdomen/GI: Soft, non-tender, with normal bowel sounds. No distension or tympany. No guarding or rebound. No evidence of tenderness throughout. Back: No spinal tenderness. No costovertebral tenderness. Full range of motion. Skin: Warm, dry with normal turgor. Normal color with no rashes, no lesions, and no evidence of cellulitis. MS/ Extremity: Pulses equal, no cyanosis. Neurovascular intact. Full, normal range of motion. 19:00 Cardiovascular: Rate: normal, Rhythm: regular. 19:00 ECG was reviewed by the Attending Physician. NSR 19:00 Neuro: Orientation: is normal, Motor: is normal, moves all fours. Vital Signs: 18:11 BP 111 / 64; Pulse 90; Resp 18; Temp 98.4(O); Pulse Ox 99% on R/A; Weight 77.11 kg; hj Height 4 ft. 11 in. (149.86 cm); Pain 8/10; 19:00 BP 117 / 62; Pulse 82; Resp 17; Pulse Ox 99% ; mb3 19:00 BP 94 / 67; Pulse 80; Resp 18; Pulse Ox 98% on R/A; mb3 18:11 Body Mass Index 34.34 (77.11 kg, 149.86 cm) hj MDM: 18:54 Patient medically screened. pm1 20:09 Data reviewed: vital signs. Data interpreted: Pulse oximetry: on room air is 99 %. pm1 Interpretation: normal. Counseling: I had a detailed discussion with the patient and/or guardian regarding: the historical points, exam findings, and any diagnostic results supporting the discharge/admit diagnosis, lab results, radiology results, the need for outpatient follow up, to return to the emergency department if symptoms worsen or persist or if there are any questions or concerns that arise at home. 02/19 18:26 Order name: Basic Metabolic Panel; Complete Time: 19:41 02/19 18:26 Order name: CBC with Diff; Complete Time: 19:57 02/19 18:26 Order name: Ckmb; Complete Time: 19:41 02/19 18:26 Order name: CPK; Complete Time: :41 02/19 18:26 Order name: LFT's; Complete Time: :41 02/19 18:26 Order name: Magnesium; Complete Time: :41 02/19 18:26 Order name: NT PRO-BNP; Complete Time: 19:41 02/19 18:26 Order name: PT-INR; Complete Time: 19:34 02/19 18:26 Order name: Ptt, Activated; Complete Time: 19:34 02/19 18:26 Order name: Troponin (emerg Dept Use Only); Complete Time: 19:34 rn 02/19 18:26 Order name: XRAY Chest (1 view); Complete Time: 19:57 rn 02/19 19:17 Order name: Urine Dipstick--Ancillary (enter results); Complete Time: 19:57 ms 02/19 19:51 Order name: CBC Smear Scan; Complete Time: 19:57 EDMS 02/19 18:15 Order name: EKG; Complete Time: 18:15 hj 02/19 18:26 Order name: Cardiac monitoring; Complete Time: 18:47 rn 02/19 18:26 Order name: EKG - Nurse/Tech; Complete Time: 18:48 rn 02/19 18:26 Order name: IV Saline Lock; Complete Time: 18:48 rn 02/19 18:26 Order name: Labs collected and sent; Complete Time: 18:48 rn 02/19 18:26 Order name: O2 Per Protocol; Complete Time: 19:01 rn 02/19 18:26 Order name: O2 Sat Monitoring; Complete Time: 19:01 rn 02/19 18:26 Order name: Urine Dipstick-Ancillary (obtain specimen); Complete Time: 19:13 rn Administered Medications: 21:00 Drug: Caputa (7.5 mg-325 mg) 1 tabs Route: PO; mb3 21:00 Follow up: Response: Medication administered at discharge. mb3 Disposition: 02/19/18 20:17 Discharged to Home. Impression: Chest pain, unspecified. - Condition is Stable. - Discharge Instructions: Nonspecific Chest Pain. - Prescriptions for Cyclobenzaprine 10 mg Oral Tablet - take 1 tablet by ORAL route every 8 hours As needed; 20 tablet. - Medication Reconciliation Form, Thank You Letter form. - Follow up: Emergency Department; When: As needed; Reason: Worsening of condition. Follow up: Private Physician; When: 2 - 3 days; Reason: Recheck today's complaints, Continuance of care, Re-evaluation by your physician. - Problem is new. - Symptoms have improved. Addendum: 02/21/2018 20:52 Co-signature as Attending Physician, Beau Encarnacion MD. r n Signatures: Dispatcher [employer] Beau Payne MD MD rn Joaquin, Henry, RN RN hj Marinas, Patrick, MUSEUM SERVICE SCHEDULER MUSEUM SERVICE SCHEDULER pm1 Zion Reese RN RN mb3 Corrections: (The following items were deleted from the chart) 02/19 21:02 20:17 02/19/2018 20:17 Discharged to Home. Impression: Chest pain, unspecified. mb3 Condition is Stable. Forms are Medication Reconciliation Form, Thank You Letter, Antibiotic Education, Prescription Opioid Use. Follow up: Emergency Department; When: As needed; Reason: Worsening of condition. Follow up: Private Physician; When: 2 - 3 days; Reason: Recheck today's complaints, Continuance of care, Re-evaluation by your physician. Problem is new. Symptoms have improved. pm1
[2018-02-19] MEDS ORDERED: HYDROCODONE/APAP 7.5/325 MG TAB ONE (20:59)
[2018-02-19 21:06] VITALS: TEMP 98.4
[2018-02-19 21:07] VITALS: BP 94/67; O2SAT 98
--- NOTE | 2018-02-20 10:01 | EKG ---
Test Date: 2018-02-19 Test Time: 18:22:35 Waiter Waitress: SCOTT MEASUREMENT RESULTS: Intervals: Rate: 86 CT: 140 QRSD: 76 QT: 368 QTc: 440 [place]: P: 27 CT: 140 QRS: 16 T: 51 INTERPRETIVE STATEMENTS: Normal sinus rhythm Normal ECG Compared to ECG 10/02/2017 22:24:23 No significant changes Electronically Signed On 02-20-18 09:59:56 CDT by Nico Caldwell
== END 2018-02-19 21:02 | disposition home or self-care (01) ==
LOC: ER 18:02
DX: R07.9 Chest pain, unspecified (principal); K74.60 Unspecified cirrhosis of liver; K50.90 Crohn's disease, unspecified, without complications; Z88.1 Allergy status to other antibiotic agents; Z88.8 Allergy status to other drugs, medicaments and biological substances
CPT/HCPCS: 36415; 71045; 80048; 80076; 81003; 82550; 82553; 83735; 83880; 84484; 85025; 85610; 85730; 93005; 99285

== ENCOUNTER 2018-03-07 19:00 | Emergency (ER) | payer OTHER ==
--- OUTSIDE RECORDS SUMMARY | 2018-03-07 19:03 | XMS REPORT ---
[...] Status Dosage System Date Date Gabapentin ND 22807888026 100 MG Orally Active 2 cap in Three times a AM 3 caps day PM Cyanocobalamin ND 74113735501 1000 MCG/ML Active INJECT 1 ML IN MUSCLE ONCE A MONTH Furosemide ND 28190080199 40 MG Orally Active 1 tablet Once a day Seroquel ND 03036228416 50 MG Orally Active 1 tablet Once a day Ultram ND 89314169338 50 MG Orally Active 1 tablet every 6 hrs as needed Folic Acid ND 36953643138 1 MG Orally Active 1 tablet Once a day Spironolactone ND 87047548640 25 MG Orally Active 1 tablet Once a day with food Zofran ODT ND 46179293460 4 MG Orally Active 1 tablet every 8 hrs on the tongue and allow to dissolve Pantoprazole ND 19106218000 40 MG Orally Active 1 tablet Sodium Once a day Xifaxan ND 60736820520 550 MG Orally Active 1 tablet Twice a day Results No Known Results Summary Purpose eClinicalWorks Submission
--- OUTSIDE RECORDS SUMMARY | 2018-03-07 19:03 | XMS REPORT ---
[...] Depression F32.9 Active Problem Fatigue R53.83 Active Problem Irritable bowel syndrome without K58.9 Active diarrhea Problem Seasonal and perennial allergic J30.9 Active rhinitis Problem Restless legs syndrome G25.81 Active Medications No Known Medications Results No Known Results Summary Purpose eClinicalWorks Submission
--- OUTSIDE RECORDS SUMMARY | 2018-03-07 19:03 | XMS REPORT | Clinical Summary ---
:1960 Author Organization [facility] Address [address] [place] [address] Care Team Providers Name Role Phone Leon [...] cirrhosis of daily. liver, Awaiting liver transplant potassium chloride 20 Take 40 mEq by 90 tablet 2 06/24/2017 Active mEq tablet extended mouth daily. releaseIndications: Hypokalemia, Other hypervolemia, Localized edema, Awaiting liver transplant gabapentin Take 300 mg by Active (NEURONTIN) 300 mg mouth 3 capsule (three) times a day. potassium chloride 20 Take 40 mEq by 90 tablet 2 02/15/2017 Discontinued mEq tablet extended mouth daily. 7 releaseIndications: Hypokalemia, Other hypervolemia, Localized edema, Awaiting liver transplant lactulose 10 gram/15 Take 15 mL (10 1350 mL 11 03/04/2017 mL (15 mL) g total) by 8 solutionIndications: mouth 3 Hepatic (three) times encephalopathy a day. lactulose 20 gram/30 Take 30 mL (20 8100 mL 3 03/04/2017 mL solution g total) by 8 mouth 3 (three) times a day. MEDROL 32 mg Take 1 tablet 2 [...] Overview: Added automatically from request for surgery [id number] Bipolar disorder, unspecified 10/09/2016 Persistent depressive disorder 10/09/2016 Alcoholic cirrhosis of liver 09/12/2016 Hepatic encephalopathy 06/26/2016 S/P TIPS (transjugular intrahepatic portosystemic shunt) 05/08/2016 Thrombocytopenia 05/04/2016 Cirrhosis of liver not due to alcohol 05/04/2016 Malnutrition 05/04/2016 Encounters Date Type Specialty Care Team Description 02/20/2018 Telephone Transplant Dahlia Fernandez, returning call RN 02/19/2018 Telephone Transplant Gene Díaz MA Sick Call 02/06/2018 Telephone Transplant Dahlia Fernandez, returning call RN 01/24/2018 Telephone Transplant Dahlia Fernandez, f/u RN 01/22/2018 Telephone Transplant Talon, HH Orders BENNETT Eaton 01/10/2018 Documentation Transplant Bonny Zambrano, MELD score updated to RN 15, recert [...] Fernandez, returning call RN 10/18/2017 Telephone Transplant Patricia, Marita, TXP [facility] 10/16/2017 Telephone Transplant Renae Chadwick MA Med Inquiries 10/16/2017 Telephone Transplant Gene Díaz MA Returning Call 10/16/2017 Telephone Transplant Patricia, Marita, TXP [facility] 10/15/2017 Telephone Transplant Dahlia Fernandez, f/u appt RN 10/11/2017 Documentation Transplant Dahlia Fernandez, MELD score updated to RN 12;recert due 01/04/18 10/05/2017 Hospital Encounter General Internal Giselle, Hepatic - Medicine Alexis, DO encephalopathy 10/07/2017 Maximo, (Primary Dx) Elia Sheets MD 10/03/2017 Telephone Transplant Dahlia Fernandez, Inpatient in [place] AMARILIS lee 09/20/2017 Telephone Transplant Padmini Soares Waitlist Status M, MA Update 09/20/2017 Telephone Transplant Dahlia Fernandez, returning call RN 09/19/2017 Telephone Transplant Gene Díaz MA Speak with Coordinator 09/11/2017 Telephone Transplant Padmini Soares B12 Injection M, MA 09/11/2017 Telephone Transplant Renae Chadwick MA Speak [...] Telephone Transplant Talon Sick Call; returning Uma, PR call 06/24/2017 Refill Transplant Dahlia Fernandez, Med Refill RN 06/05/2017 Telephone Transplant Talon, Lab Orders Uma, PR 05/27/2017 Telephone Transplant Dahlia Fernandez, MELD score updated to RN 14;recert due 08/27/16 05/24/2017 Telephone Transplant Padmini Soares Lab Recollect M, PR Question 05/17/2017 Telephone Transplant Dahlia Fernandez, f/u RN 05/13/2017 Telephone Transplant Bonny Zambrano, Return Call RN 05/13/2017 Telephone Transplant Telma Medrano, Pt at the ER PR 05/09/2017 Emergency Emergency Nasir Cordero Acute nonintractable headache, unspecified headache type (Primary Dx); - Medicine DO Pedro Generalized abdominal pain; 05/10/2017 Constipation, unspecified constipation type; Hyperammonemia 05/09/2017 Telephone Transplant Padmini Soares Sick Call M, MA 05/03/2017 Telephone Transplant Talon, Returning Callback Uma, [place] 05/03/2017 Telephone Transplant Dahlia Fernandez, returning call RN 04/30/2017 Hospital Encounter Radiology Calos Garcia Allergy to iodine MD Ping 04/30/2017 Telephone Transplant Dahlia Fernandez, Returning call RN 04/30/2017 Telephone Transplant Gene Díaz MA Appointment Questions 04/29/2017 Telephone Transplant Gene Díaz MA Speak with coordinator 04/29/2017 Telephone Transplant Dahlia Fernandez, Request for RN additional premedication for MRI 04/18/2017 Telephone Transplant Wokimileonid, Speak to Coordinator BENNETT Eaton 04/16/2017 Procedure [...] 03/08/2017 Telephone Transplant Bonny Zambrano, Follow-up RN after 03/06/2017 Immunizations Name Dates Previously Given Next Due [...] Taken Blood Pressure 93/52 10/07/2017 3:41 PM [facility] Pulse 82 10/07/2017 3:41 PM [facility] Temperature 36.6 C (97.8 F) 10/07/2017 3:41 PM [facility] Respiratory Rate 18 10/07/2017 3:41 PM [facility] Oxygen Saturation 96% 10/07/2017 3:41 PM [facility] Inhaled Oxygen Concentration - - Weight 80.8 kg (178 lb 1.6 oz) 10/07/2017 5:00 AM [facility] Height 149.9 cm (4' 11") 10/05/2017 7:12 PM [facility] Body Mass Index 35.97 10/07/2017 5:00 AM [facility] Plan of Treatment Health Maintenance Due Date Last Done Comments COLON CANCER SCREENING 2011 SHINGRIX VACCINE (#1) 2011 INFLUENZA VACCINE 03/12/2018 05/08/2016 BREAST CANCER SCREENING 10/17/2018 10/17/2016, 10/09/2016, 10/09/2016 CERVICAL CANCER SCREENING 10/08/2019 10/08/2016 Implants Implanted Type Area Linen Checker Device Expiration Model / Identifier Date Serial / Lot Stent Endprths Viatorr Tips 8cm 10mm - [id number] Surgical N/A: N/A W L GORE 02/06/2019 [id number] / Implanted: 05/04/2016 (Quantity not on file) Stents [id number] / [id number] Procedures Procedure Name Priority Date/Time Associated Comments [...] Routine 10/07/2017 4:00 Results for this AM [facility] procedure are in the results section. PROTHROMBIN TIME WITH Routine 10/07/2017 4:00 Results for this INR AM [facility] procedure are in the results section. COMPREHENSIVE METABOLIC Routine 10/07/2017 4:00 Results for this PANEL AM [facility] procedure are in the results section. HC COMPLETE BLD COUNT Routine 10/07/2017 4:00 Results for this W/AUTO DIFF AM [facility] procedure are in the results section. POC GLUCOSE Routine 10/06/2017 9:12 Results for this PM [facility] procedure are in the results section. POC GLUCOSE Routine 10/06/2017 8:18 Results for this AM [facility] procedure are in the results section. URINE CULTURE Routine 10/06/2017 7:58 Results for this AM [facility] procedure are in the results section. URINALYSIS SCREEN AND Routine 10/06/2017 7:06 Results for this MICROSCOPY, WITH REFLEX AM [facility] procedure are in TO CULTURE the results section. ESTIMATED GFR Routine 10/06/2017 5:45 Results for this AM [facility] procedure are in the results section. PROTHROMBIN TIME WITH Routine 10/06/2017 5:45 Results for this INR AM [facility] procedure are in the results section. COMPREHENSIVE METABOLIC Routine 10/06/2017 5:45 Results for this PANEL AM [facility] procedure are in the results section. HC COMPLETE BLD COUNT Routine 10/06/2017 5:45 Results for this W/AUTO DIFF AM [facility] procedure are in the results section. XR CHEST 1 VW PORTABLE STAT 10/05/2017 11:39 Results for this PM [facility] procedure are in the results section. CT ABDOMEN PELVIS WO STAT 10/05/2017 11:01 Results for this CONTRAST PM [facility] procedure are in the results section. CT HEAD WO CONTRAST STAT 10/05/2017 11:01 Results for this PM [facility] procedure are in the results section. AMMONIA LEVEL STAT 10/05/2017 9:46 Results for this PM [facility] procedure are in the results section. ESTIMATED GFR STAT 10/05/2017 9:46 Results for this PM [facility] procedure are in the results section. LIPASE LEVEL STAT 10/05/2017 9:46 Results for this PM [facility] procedure are in the results section. COMPREHENSIVE METABOLIC STAT 10/05/2017 9:46 Results for this PANEL PM [facility] procedure are in the results section. PARTIAL THROMBOPLASTIN STAT 10/05/2017 9:46 Results for this TIME (PTT) PM [facility] procedure are in the results section. PROTHROMBIN TIME WITH STAT 10/05/2017 9:46 Results for this INR PM [facility] procedure are in the results section. HC COMPLETE BLD COUNT STAT 10/05/2017 9:46 Results for this W/AUTO DIFF PM [facility] procedure are in the results section. CT [...] procedure are in the results section. after 03/06/2017 Results Estimated GFR (11/22/2017 2:23 PM)Only the most recent of5 resultswithin the time period is included. GFR Non Af Amer 46 (A) mL/min/1.73 m2 [facility] DEPARTMENT OF PATHOLOGY AND GENOMIC MEDICINE GFR Af Amer 56 (A) mL/min/1.73 m2 [facility] DEPARTMENT OF Comment: PATHOLOGY AND GENOMIC Chronic kidney disease: <60 mL/min/1.73m2 MEDICINE Kidney [...] Americans. Specimen Plasma specimen Performing Organization Address City/[facility] Phone Number [facility] DEPARTMENT OF PATHOLOGY AND [address] [place] [address] [employer] [facility] Partial thromboplastin time, activated (11/22/2017 2:23 PM)Only the most recent of3 resultswithin the time period is included. PTT 34.8 23.0 - 36.0 sec [facility] DEPARTMENT OF PATHOLOGY Comment: AND GENOMIC [facility] PTT therapeutic range for unfractionated heparin is 61.0-112.0 seconds which corresponds to Anti-Xa 0.3-0.7 U/ml. Specimen Blood Performing Organization Address [facility] Centercond Phone Number [facility] OF PATHOLOGY AND [address] [place] [address] Prothrombin time with INR (11/22/2017 2:23 PM)Only the most recent of5 resultswithin the time period is included. Prothrombin time 16.8 (H) 12.0 - 15.0 sec [facility] DEPARTMENT OF PATHOLOGY AND GENOMIC MEDICINE INR 1.3 [facility] DEPARTMENT OF Comment: PATHOLOGY AND GENOMIC The International Normalized Ratio (INR) is a therapeutic MEDICINE monitoring tool for patients who are stable on oral anticoagulant therapy. An INR of 2.0-3.0 is suggested for deep vein thrombosis/pulmonary embolism. Specimen Blood Performing Organization Address [facility] Phone Number [facility] DEPARTMENT OF PATHOLOGY AND [address] [place] [address] [employer] [facility] CBC with platelet and differential (11/22/2017 2:23 PM)Only the most recent of5 resultswithin the time period is included. WBC 6.30 4.50 - 11.00 k/uL [facility] DEPARTMENT OF PATHOLOGY AND GENOMIC MEDICINE RBC 3.49 (L) 4.20 - 5.50 m/uL [facility] DEPARTMENT OF PATHOLOGY AND GENOMIC MEDICINE HGB 10.2 (L) 12.0 - 16.0 g/dL [facility] DEPARTMENT OF PATHOLOGY AND GENOMIC MEDICINE HCT 31.7 (L) 37.0 - 47.0 % [facility] DEPARTMENT OF PATHOLOGY AND GENOMIC MEDICINE MCV 90.8 82.0 - 100.0 fL [facility] DEPARTMENT OF PATHOLOGY AND GENOMIC MEDICINE MCH 29.2 27.0 - 34.0 pg [facility] DEPARTMENT OF PATHOLOGY AND GENOMIC MEDICINE MCHC 32.2 31.0 - 37.0 g/dL [facility] DEPARTMENT OF PATHOLOGY AND GENOMIC MEDICINE RDW - SD 50.7 37.0 - 55.0 fL [facility] DEPARTMENT OF PATHOLOGY AND GENOMIC MEDICINE MPV 11.4 8.8 - 13.2 fL [facility] DEPARTMENT OF PATHOLOGY AND GENOMIC MEDICINE Platelet count 86 (L) 150 - 400 k/uL [facility] DEPARTMENT OF PATHOLOGY AND GENOMIC MEDICINE Nucleated RBC 0.00 /100 WBC [facility] DEPARTMENT OF PATHOLOGY AND GENOMIC MEDICINE Neutrophils 71.3 (H) 39.0 - 69.0 % [facility] DEPARTMENT OF PATHOLOGY AND GENOMIC MEDICINE Lymphocytes 16.0 (L) 25.0 - 45.0 % [facility] DEPARTMENT OF PATHOLOGY AND GENOMIC MEDICINE Monocytes 10.5 (H) 0.0 - 10.0 % [facility] DEPARTMENT OF PATHOLOGY AND GENOMIC MEDICINE Eosinophils 1.1 0.0 - 5.0 % [facility] DEPARTMENT OF PATHOLOGY AND GENOMIC MEDICINE Basophils 0.6 0.0 - 1.0 % [facility] DEPARTMENT OF PATHOLOGY AND GENOMIC MEDICINE Immature granulocytes 0.5Comment: 0.0 - 1.0 % [facility] DEPARTMENT OF "Immature PATHOLOGY AND GENOMIC granulocytes" MEDICINE (promyelocytes, myelocytes, metamyelocytes) Specimen Blood Performing Organization Address City/State/Zipcode Phone Number [facility] DEPARTMENT OF PATHOLOGY AND [address] [place] [id number] GENOMIC MEDICINE Hepatic function panel (11/22/2017 2:23 PM) Albumin 3.4 (L) 3.5 - 5.0 g/dL [facility] DEPARTMENT OF PATHOLOGY AND GENOMIC MEDICINE Total bilirubin 1.0 0.0 - 1.2 mg/dL [facility] DEPARTMENT OF PATHOLOGY AND GENOMIC MEDICINE Bilirubin direct 0.4 (H) 0.0 - 0.3 mg/dL [facility] DEPARTMENT OF PATHOLOGY AND GENOMIC MEDICINE Alkaline phosphatase 72 35 - 104 U/L [facility] DEPARTMENT OF PATHOLOGY AND GENOMIC MEDICINE Protein 7.5 6.3 - 8.3 g/dL [facility] DEPARTMENT OF Comment: PATHOLOGY AND GENOMIC 4.6-7.0 g/dL MEDICINE 1 week 4.4-7.6 g/dL 7 months-1year5.1-7.3 g/dL 1-2 years5.6-7.5 g/dL >3 years6.0-8.0 g/dL 18-150 6.3-8.3 g/dL ALT 10 5 - 50 U/L [facility] DEPARTMENT OF PATHOLOGY AND GENOMIC MEDICINE AST 25 10 - 35 U/L [facility] DEPARTMENT OF PATHOLOGY AND GENOMIC MEDICINE Specimen Plasma specimen Performing Organization Address City/[facility] Centercode Phone Number [facility] DEPARTMENT OF PATHOLOGY AND [address] [place] [address] GENOMIC MEDICINE Basic metabolic panel (11/22/2017 2:23 PM) Sodium 140 135 - 148 mEq/L [facility] DEPARTMENT OF PATHOLOGY AND GENOMIC MEDICINE Potassium 4.2 3.5 - 5.0 mEq/L [facility] DEPARTMENT OF PATHOLOGY AND GENOMIC MEDICINE Chloride 104 98 - 112 mEq/L [facility] DEPARTMENT OF PATHOLOGY AND GENOMIC MEDICINE CO2 22 (L) 24 - 31 mEq/L [facility] DEPARTMENT OF PATHOLOGY AND GENOMIC MEDICINE Anion gap 14 7 - 15 mEq/L [facility] DEPARTMENT OF PATHOLOGY Comment: AND GENOMIC MEDICINE Starting from November , anion gap calculation no longer incorporates potassium. Please note the change. BUN 17 6 - 20 mg/dL [facility] DEPARTMENT OF PATHOLOGY AND GENOMIC MEDICINE Creatinine 1.2 (H) 0.5 - 0.9 mg/dL [facility] DEPARTMENT OF PATHOLOGY AND GENOMIC MEDICINE Glucose 89 65 - 99 mg/dL [facility] DEPARTMENT OF PATHOLOGY AND GENOMIC MEDICINE Calcium 9.8 8.3 - 10.2 mg/dL [facility] DEPARTMENT OF PATHOLOGY AND GENOMIC MEDICINE Specimen Plasma specimen Performing Organization Address City/[facility] Centercode Phone Number [facility] DEPARTMENT OF PATHOLOGY AND [address] [place] [address] GENOMIC MEDICINE Comprehensive metabolic panel (10/07/2017 4:00 AM)Only the most recent of4 resultswithin the time period is included. Sodium 143 135 - 148 mEq/L [facility] DEPARTMENT OF PATHOLOGY AND GENOMIC MEDICINE Potassium 3.7 3.5 - 5.0 mEq/L [facility] DEPARTMENT OF PATHOLOGY AND GENOMIC MEDICINE Chloride 107 98 - 112 mEq/L [facility] DEPARTMENT OF PATHOLOGY AND GENOMIC MEDICINE CO2 22 (L) 24 - 31 mEq/L [facility] DEPARTMENT OF PATHOLOGY AND GENOMIC MEDICINE Anion gap 14 7 - 15 mEq/L [facility] DEPARTMENT OF Comment: PATHOLOGY AND GENOMIC Starting from November , anion gap calculation MEDICINE no longer incorporates potassium. Please note the change. BUN 14 6 - 20 mg/dL [facility] DEPARTMENT OF PATHOLOGY AND GENOMIC MEDICINE Creatinine 1.1 (H) 0.5 - 0.9 mg/dL [facility] DEPARTMENT OF PATHOLOGY AND GENOMIC MEDICINE Glucose 91 65 - 99 mg/dL [facility] DEPARTMENT OF PATHOLOGY AND GENOMIC MEDICINE Calcium 9.3 8.3 - 10.2 mg/dL [facility] DEPARTMENT OF PATHOLOGY AND GENOMIC MEDICINE Protein 6.4 6.3 - 8.3 g/dL [facility] DEPARTMENT OF Comment: PATHOLOGY AND GENOMIC 4.6-7.0 g/dL MEDICINE 1 week 4.4-7.6 g/dL 7 months-1year5.1-7.3 g/dL 1-2 years5.6-7.5 g/dL >3 years6.0-8.0 g/dL 18-150 6.3-8.3 g/dL Albumin 3.1 (L) 3.5 - 5.0 g/dL [facility] DEPARTMENT OF PATHOLOGY AND GENOMIC MEDICINE A/G ratio 0.9 0.7 - 3.8 [facility] DEPARTMENT OF PATHOLOGY AND GENOMIC MEDICINE Alkaline phosphatase 53 35 - 104 U/L [facility] DEPARTMENT OF PATHOLOGY AND GENOMIC MEDICINE AST 21 10 - 35 U/L [facility] DEPARTMENT OF PATHOLOGY AND GENOMIC MEDICINE ALT <5 (A) 5 - 50 U/L [facility] DEPARTMENT OF PATHOLOGY AND GENOMIC MEDICINE Total bilirubin 1.0 0.0 - 1.2 mg/dL [facility] DEPARTMENT OF PATHOLOGY AND GENOMIC MEDICINE Specimen Plasma specimen Performing Organization Address City/[facility] Centercode Phone Number [facility] DEPARTMENT OF PATHOLOGY AND [address] [place] [address] POC glucose (10/06/2017 9:12 PM)Only the most recent of2 resultswithin the time period is included. POC glucose 95 65 - 99 mg/dL [facility] DEPARTMENT OF PATHOLOGY Comment: AND GENOMIC MEDICINE [facility] Notified RN Meter ID: [id number] Trauma Counsellor: Pardeep Benedict Performing Organization Address City/[facility]/Zipcode Phone Number [facility] DEPARTMENT OF PATHOLOGY AND [address] [place], [place] [id number] [facility] Urine culture (10/06/2017 7:58 AM) Urine culture SEE COMMENTComment: Bacteriuria [facility] DEPARTMENT OF PATHOLOGY screen negative. AND GENOMIC MEDICINE Performing Organization Address City/[facility] Centercode Phone Number [facility] DEPARTMENT OF PATHOLOGY AND [address] [place] [address] Urinalysis screen and microscopy, with reflex to culture (10/06/2017 7:06 AM) Specimen site Clean catch [facility] DEPARTMENT OF PATHOLOGY AND GENOMIC MEDICINE Color, UA Cortney [facility] DEPARTMENT OF PATHOLOGY AND GENOMIC MEDICINE Appearance, UA Hazy [facility] DEPARTMENT OF PATHOLOGY AND GENOMIC MEDICINE Specific gravity, UA 1.021 1.001 - 1.035 [facility] DEPARTMENT OF PATHOLOGY AND GENOMIC MEDICINE pH, UA 5.0 5.0 - 8.5 [facility] DEPARTMENT OF PATHOLOGY AND GENOMIC MEDICINE Protein, UA Negative Negative [facility] DEPARTMENT OF PATHOLOGY AND GENOMIC MEDICINE Glucose, UA Negative Negative [facility] DEPARTMENT OF PATHOLOGY AND GENOMIC MEDICINE Ketones, UA Negative Negative [facility] DEPARTMENT OF PATHOLOGY AND GENOMIC MEDICINE Bilirubin, UA Negative Negative [facility] DEPARTMENT OF PATHOLOGY AND GENOMIC MEDICINE Blood, UA Negative Negative [facility] DEPARTMENT OF PATHOLOGY AND GENOMIC MEDICINE Nitrite, UA Negative Negative [facility] DEPARTMENT OF PATHOLOGY AND GENOMIC MEDICINE Urobilinogen, UA 4.0 (A) <2.0 [facility] DEPARTMENT OF PATHOLOGY AND GENOMIC MEDICINE Leukocyte esterase, UA Negative Negative [facility] DEPARTMENT OF PATHOLOGY AND GENOMIC MEDICINE Epithelial cells, UA 10 /HPF [facility] DEPARTMENT OF PATHOLOGY AND GENOMIC MEDICINE Round epithelial cells, UA <1 0 - 1 /HPF [facility] DEPARTMENT OF PATHOLOGY AND GENOMIC MEDICINE WBC, UA 2 0 - 4 /HPF [facility] DEPARTMENT OF PATHOLOGY AND GENOMIC MEDICINE RBC, UA 1 0 - 2 /HPF [facility] DEPARTMENT OF PATHOLOGY AND GENOMIC MEDICINE Bacteria, UA Few None seen [facility] DEPARTMENT OF PATHOLOGY AND GENOMIC MEDICINE Yeast, UA None seen [facility] DEPARTMENT OF PATHOLOGY AND GENOMIC MEDICINE Yeast with pseudohyphae, UA None seen [facility] DEPARTMENT OF PATHOLOGY AND GENOMIC MEDICINE Hyaline casts, UA 1 /LPF [facility] DEPARTMENT OF PATHOLOGY AND GENOMIC MEDICINE Specimen Urine Performing Organization Address City/State/[facility] Center[facility] Phone Number [facility] DEPARTMENT OF PATHOLOGY AND [address] [place] [address] [facility] XR Chest 1 Vw Portable (10/05/2017 11:39 PM) Narrative Performed At Examination:XR CHEST 1 VW PORTABLE [facility] Clinical History:decompensated cirrhosis Comparison: None. Technique: Single frontal view of the chest is obtained. Findings: The lungs are free of infiltrate. The heart size is normal. No pleural effusion is seen. Impression: No active cardiopulmonary disease identified. [facility]-[id number] Procedure Note Hm Interface, Radiology Results Incoming - 10/05/2017 11:44 PM [facility] Examination: XR CHEST 1 VW PORTABLE Clinical History: decompensated cirrhosis Comparison: None. Technique: Single frontal view of the chest is obtained. Findings: The lungs are free of infiltrate. The heart size is normal. No pleural effusion is seen. Impression: No active cardiopulmonary disease identified. [id number] Performing Organization Address City/State/Zipcode Phone Number [facility] [address] [place] [address] CT Abdomen Pelvis Wo Contrast (10/05/2017 11:01 [...] recurrent hernia. 4. Bilateral nonobstructing intrarenal calculi. [facility]-[id number] Procedure Note Interface, Radiology Results Incoming - 10/05/2017 11:21 PM [facility] Examination: CT ABDOMEN PELVIS WO CONTRAST Clinical [...] recurrent hernia. 4. Bilateral nonobstructing intrarenal calculi. [facility]-[id number] Performing Organization Address City/State/Zipcode Phone Number [facility] [address] [place] [address] CT Head Wo Contrast (10/05/2017 11:01 PM)Only the most recent of2 resultswithin the time period is included. Narrative Performed At EXAMINATION: [facility]: ams COMPARISON:05/10/[address] TECHNIQUE: [...] detailed above with no acute intracranial abnormality. [facility]-[id number] Procedure Note Hm Interface, Radiology Results Incoming - 10/05/2017 11:13 PM [facility] EXAMINATION: CT HEAD WO CONTRAST CLINICAL HISTORY: [...] detailed above with no acute intracranial abnormality. [facility]-[id number] Performing Organization Address [facility] Centercode Phone Number [facility] [address] [place] [address] Lipase level (10/05/2017 9:46 PM)Only the most recent of2 resultswithin the time period is included. Lipase 22 13 - 60 U/L [facility] DEPARTMENT OF PATHOLOGY AND GENOMIC MEDICINE Specimen Plasma specimen Performing Organization Address [facility] Phone Number [facility] DEPARTMENT OF PATHOLOGY AND [address] [place] [address] [facility] Ammonia level (10/05/2017 9:46 PM)Only the most recent of2 resultswithin the time period is included. Ammonia 77 (H) 11 - 51 umol/L [facility] DEPARTMENT OF PATHOLOGY AND GENOMIC MEDICINE Specimen Blood Performing Organization Address [facility] Phone Number [facility] DEPARTMENT OF PATHOLOGY AND [address] [place] [address] [facility] [address] Renal Stone Protocol (05/10/2017 12:57 AM) Narrative Performed At CT RENAL STONE PROTOCOL HM [facility] CLINICAL INDICATION:abd paincirrhosis TECHNIQUE: Multidetector CT of [...] 4. Moderate fecal material throughout the colon. [facility]-[id number] Procedure Note Interface, Radiology Results Incoming - 05/10/2017 1:08 [...] 4. Moderate fecal material throughout the colon. [facility]-[id number] Performing Organization Address City/State/Zipcode Phone Number [facility] [address] [place] [address] Lactic acid level (05/09/2017 9:02 PM) Lactic acid 3.3 (H) 0.5 - 2.2 mmol/L [facility] DEPARTMENT OF PATHOLOGY AND GENOMIC MEDICINE Specimen Plasma specimen Narrative Performed At 2X EXTRA GREEN [facility] DEPARTMENT OF PATHOLOGY AND GENOMIC 2X EXTRA LAV MEDICINE 1X EXTRA BLUE Performing Organization Address City/State/Zipcode Phone Number [facility] DEPARTMENT OF PATHOLOGY AND [address] [place] [address] GENOMIC MEDICINE MRI Abdomen W Wo Contrast (04/30/2017 1:30 PM) Narrative Performed At EXAMINATION:MRI ABDOMEN W WO CONTRAST RADIANT CLINICAL HISTORY:Z88.8 Allergy status to other drugsmedicaments [...] HCC. 2.Patent portal vein. Status post TIPS. [facility]-[id number] Procedure Note Interface, Radiology Results Incoming - [...] 2. Patent portal vein. Status post TIPS. [facility]-[id number] Performing Organization Address City/State/Zipcode Phone Number [facility] [address] [place] [address] after 03/06/2017 Insurance Payer Benefit Plan / Group Subscriber ID Type Phone Address MEDICARE MEDICARE PART A AND B xxxxxxxxxx Medicare [place], [place] MEDICAID MEDICAID xxxxxxxxx Medicaid Home: [address] [phone] [place], [place] [phone] BELLA BARRON Transplant Self 1960 Home: [address] [phone] [place], [place] [phone]
[2018-03-07 22:06] LABS: Absolute Lymphocytes (CBC) 1.4 K/uL (0.7-4.9); Absolute Monocytes 0.7 K/uL (0.1-1.3); Absolute Neutrophil 3.9 K/uL (1.8-8.0); Basophils % 0.5 % (0-1.3); Eosinophils % 2.8 % (0-4.4); Hematocrit 34.2 % (36.0-45.0); MCH 31.2 pg (27.0-35.0); MCV 91.4 fL (80-100); MPV 8.8 fL (7.6-11.3); Monocytes % 10.8 % (3.3-12.3); RBC Red Blood Cell Count 3.75 M/uL (3.86-4.86)
[2018-03-07 22:10] LABS: Protime INR 1.08
--- NOTE | 2018-03-07 22:17 | RAD REPORT ---
EXAM DESCRIPTION: RAD - Knee Right 3 View - 03/07/2018 10:09 pm CLINICAL HISTORY: PAIN History of fall COMPARISON: <Comparisons> FINDINGS: No acute fracture or dislocation is seen. Mild joint space narrowing is seen involving the superior glenohumeral joint. A suprapatellar joint effusion is not identified.
--- NOTE | 2018-03-07 22:18 | RAD REPORT ---
EXAM DESCRIPTION: RAD - Chest Single View - 03/07/2018 10:10 pm CLINICAL HISTORY: fall Chest pain. COMPARISON: Chest Single View dated 02/19/2018; Chest Single View dated 10/02/2017; Chest Single View dated 08/29/2017; Chest Single View dated 04/25/2017Chest Single View dated 02/19/2018; Chest Single Vie w dated 10/02/2017; Chest Single View dated 08/29/2017; Chest Single View dated 04/25/2017; Chest Single View dated 01/30/2017 FINDINGS: Portable technique limits examination quality. The lungs are grossly clear. The heart is normal in size. No displaced fractures. IMPRESSION: No acute intrathoracic process suspected.
[2018-03-07 22:49] LABS: ALT/SGPT 17 U/L (12-78); AST/SGOT 19 U/L (15-37); Albumin 3.5 g/dL (3.4-5.0); Alkaline Phosphatase 80 U/L (45-117); BUN Blood Urea Nitrogen 22 mg/dL (7-18); Bicarbonate 25 mmol/L (21-32); Bilirubin Direct 0.4 mg/dL (0-0.2); CKMB Creatine Kinase MB < 1.0 ng/mL (0.3-3.6); Creatine Phosphokinase 35 U/L (26-192); Glucose Level 74 mg/dL (74-106); NT PRO-BNP 33 pg/mL (<125); Potassium 4.1 mmol/L (3.5-5.1); Protein, Total 7.2 g/dL (6.4-8.2); Sodium Level 142 mmol/L (136-145)
[2018-03-07 22:54] LABS: Blood Morphology Comment NOT SEEN (NOT SEEN); Platelet Estimate DECR; Urine White Blood Cell Casts OK
[2018-03-07] MEDS ORDERED: MEPERIDINE HCL 50 MG/ML AMP ONE (23:59)
[2018-03-07] MEDS ORDERED: ONDANSETRON 4 MG/2 ML VIAL ONE (23:59)
[2018-03-08] MEDS ORDERED: LACTULOSE 20 GM/30 ML UCUP ONE
--- NOTE | 2018-03-08 01:03 | RAD REPORT ---
EXAM DESCRIPTION: CT - Head Brain Wo Cont - 03/07/2018 10:38 pm CLINICAL HISTORY: HEADACHE Fall, head trauma COMPARISON: Head Brain Wo Cont dated 10/02/2017; Head Brain Wo Cont dated 08/29/2017 TECHNIQUE: All CT scans are performed using dose optimization technique as appropriate and may inclu de automated exposure control or mA/KV adjustment according to patient size. FINDINGS: No intracranial hemorrhage, hydrocephalus or extra-axial fluid collection.No areas of brai n edema or evidence of midline shift. The paranasal sinuses and mastoids are clear. The calvarium is intact. IMPRESSION: No acute intracranial abnormality.
--- NOTE | 2018-03-08 01:31 | ER ---
Nurse's Notes [facility] Name: Bella Barorn Age: 57 yrs Sex: Female : 1960 Arrival Date: 03/07/2018 Time: 19:03 Bed 30 Private MD: Fernando Díaz Diagnosis: Contusion right knee. S/P Fall. Cirrhosis of liver Presentation: 03/07 19:36 Presenting complaint: Patient states: "I keep falling, my feet get tangle up, I feel aj1 like I'm drunk this has been happening all day. I don't know if this has anything to do with my liver disease" Reports pain in right knee from when she fell. Care prior to arrival: None. Mechanism of Injury: Fall from standing position. Trauma event details: Injury occurred in the [facility]. 19:36 Acuity: OLEG 3 aj1 19:36 Method Of Arrival: Wheelchair aj1 19:38 Transition of care: patient was not received from another setting of care. Onset of aj1 symptoms was March 07, 2018. Risk Assessment: Do you want to hurt yourself or someone else? Patient reports no desire to harm self or others. Initial Sepsis Screen: Does the patient meet any 2 criteria? No. Patient's initial sepsis screen is negative. Does the patient have a suspected source of infection? No. Patient's initial sepsis screen is negative. Triage Assessment: 19:40 General: Appears in no apparent distress. uncomfortable, Behavior is calm, cooperative, aj1 appropriate for age. Pain: Complains of pain in right knee Pain currently is 8 out of 10 on a pain scale. Neuro: Level of Consciousness is awake, alert, obeys commands, Oriented to person, place, time, situation, Migratory Farm Hand are equal bilaterally Speech is normal, Facial symmetry appears normal, Reports weakness Denies paresthesias numbness. Cardiovascular: Patient's skin is warm and dry. Respiratory: Airway is patent Respiratory effort is even, unlabored, Respiratory pattern is regular, symmetrical. Trauma Activation: Not Applicable Physician: ED Physician; Name: ; Notified At: ; Arrived At: Physician: General Surgeon; Name: ; Notified At: ; Arrived At: Physician: Radiology; Name: ; Notified At: ; Arrived At: Physician: Respiratory; Name: ; Notified At: ; Arrived At: Physician: Lab; Name: ; Notified At: ; Arrived At: Historical: - Allergies: 19:40 Iodine; aj1 19:40 Phenergan; aj1 19:40 Rocephin; aj1 - Home Meds: 19:40 furosemide 40 mg Oral tab 1 tab once daily [Active]; lactulose 10 gram/15 mL Oral soln aj1 30 mL twice a day [Active]; pantoprazole 40 mg Oral TbEC 1 tab once daily [Active]; quetiapine Oral 1 tab nightly [Active]; spironolactone 100 mg Oral tab 1 tab once daily [Active]; tramadol 50 mg Oral tab 1 tab as needed [Active]; Xifaxan 550 mg Oral tab 1 tab 2 times per day [Active]; - PMHx: 19:40 Cirrhosis; Crohn's; Depression; Liver disease; ocd; aj1 - Immunization history:: Flu vaccine is up to date. - Social history:: Smoking status: Patient/guardian denies using tobacco. - Ebola Screening: : Patient denies travel to an Ebola-affected area in the 21 days before illness onset. Screenin:44 Abuse screen: Denies threats or abuse. Denies injuries from another. Nutritional mg2 screening: No deficits noted. Tuberculosis screening: No symptoms or risk factors identified. Fall Risk Fall in past 12 months (25 points). Gait- Weak (10 pts.). Assessment: 20:43 General: Appears in no apparent distress. comfortable, Behavior is calm, cooperative. mg2 Pain: Complains of pain in right leg and right knee Pain does not radiate. Pain currently is 8 out of 10 on a pain scale. Quality of pain is described as aching, Pain began gradually, 6 hours ago Is intermittent, Alleviated by medications, relaxation. Neuro: Level of Consciousness is awake, alert, obeys commands, Oriented to person, place, time, situation. Cardiovascular: Capillary refill < 3 seconds Patient's skin is warm and dry. Respiratory: Airway is patent Respiratory effort is even, unlabored, Respiratory pattern is regular, symmetrical. GI: No signs and/or symptoms were reported involving the gastrointestinal system. : No signs and/or symptoms were reported regarding the genitourinary system. EENT: No signs and/or symptoms were reported regarding the EENT system. Derm: Skin is intact, Skin is pink, warm \\T\\ dry. normal. Musculoskeletal: Circulation, motion, and sensation intact. Reports pain in right leg and right knee. 22:11 Reassessment: Patient appears in no apparent distress at this time. Patient and/or mg2 family updated on plan of care and expected duration. Pain level reassessed. Patient is alert, oriented x 3, equal unlabored respirations, skin warm/dry/pink. 03/08 01:18 Reassessment: Patient appears in no apparent distress at this time. Patient and/or mg2 family updated on plan of care and expected duration. Pain level reassessed. Patient is alert, oriented x 3, equal unlabored respirations, skin warm/dry/pink. Vital Signs: 03/07 19:40 BP 100 / 55; Pulse 89; Resp 20; Temp 98.0(TE); Pulse Ox 100% on R/A; Weight 77.11 kg aj1 (R); Height 4 ft. 11 in. (149.86 cm) (R); 20:46 BP 114 / 66; Pulse 90; Resp 18; Pulse Ox 98% on R/A; Pain 8/10; mg2 22:11 BP 112 / 62; Pulse 86; Resp 18; Pulse Ox 100% ; Pain 4/10; mg2 23:02 BP 114 / 54; Pulse 81; Resp 18; Pulse Ox 100% on R/A; mg2 03/08 00:05 Pulse 85; Resp 18; Pulse Ox 100% on R/A; Pain 5/10; mg2 01:48 BP 115 / 69; Pulse 70; Resp 18; Pulse Ox 100% on R/A; Pain 0/10; mg2 03/07 19:40 Body Mass Index 34.34 (77.11 kg, 149.86 cm) aj1 ED Course: 03/07 19:03 Patient arrived in ED. al2 19:03 Fernando Díaz DO is Private Physician. al2 19:38 Triage completed. aj1 19:40 Arm band placed on Patient placed in waiting room, Patient notified of wait time. aj1 20:37 Nakul Schaeffer, RN is Primary Nurse. mg2 20:45 Patient has correct armband on for positive identification. Placed in gown. Bed in low mg2 position. Call light in reach. Side rails up X 1. Door closed. Warm blanket given. 21:40 Star Elena MD is Attending Physician. pkl 21:58 Inserted saline lock: 22 gauge in right forearm, using aseptic technique. Blood mg2 collected. 22:05 X-ray completed. Portable x-ray completed in exam room. Patient tolerated procedure bb2 well. 22:06 Star Elena MD is Attending Physician. pkl 22:07 XRAY Chest (1 view) In Process Unspecified. EDMS 22:07 Knee Right 3 View XRAY In Process Unspecified. EDMS 22:38 CT Head Brain wo Cont In Process Unspecified. EDMS 03/08 01:47 No provider procedures requiring assistance completed. IV discontinued, intact, mg2 bleeding controlled, No redness/swelling at site. Pressure dressing applied. 01:49 Jose Antonio wrap to right knee. mg2 Administered Medications: 00:06 Drug: Zofran 4 mg Route: IVP; Site: right forearm; mg2 01:48 Follow up: Response: No adverse reaction; Marked relief of symptoms mg2 00:06 Drug: Lactulose 20 grams Volume: 30 ml; Route: PO; mg2 01:48 Follow up: Response: No adverse reaction; Marked relief of symptoms mg2 00:06 Drug: Demerol 50 mg Route: IVP; Site: right forearm; mg2 01:48 Follow up: Response: No adverse reaction; Marked relief of symptoms mg2 Outcome: 01:30 Discharge ordered by . pkl 01:47 Discharged to home ambulatory. mg2 01:47 Condition: stable 01:47 Discharge instructions given to patient, Instructed on discharge instructions, follow up and referral plans. medication usage, Demonstrated understanding of instructions, follow-up care, medications, Prescriptions given X 1. 01:49 Patient left the ED. mg2 Signatures: Dispatcher [employer] Minda Rascon, AMARILIS RN aj1 Star Elena MD MD pkCindy Gazra Angelica al2 [place]ose, Michele, RN RN mg2 Corrections: (The following items were deleted from the chart) 03/07 23:04 23:02 Pulse 81bpm; Resp 18bpm; Pulse Ox 100% RA; mg2 mg2
--- NOTE | 2018-03-08 01:31 | EDPHYS ---
Physician Documentation [facility] Name: Bella Barron Age: 57 yrs Sex: Female : 1960 Arrival Date: 03/07/2018 Time: 19:03 Bed 30 Private MD: Arjun [facility] ED Physician Star Elena HPI: 03/08 01:26 This 57 yrs old Female presents to ER via Wheelchair with complaints of Fall pkl Injury. 01:26 Details of fall: The patient fell from an upright position, while standing. Onset: The pkl symptoms/episode began/occurred today. Associated injuries: The patient sustained right knee, contusion. Historical: - Allergies: 03/07 19:40 Iodine; aj1 19:40 Phenergan; aj1 19:40 Rocephin; aj1 - Home Meds: 19:40 furosemide 40 mg Oral tab 1 tab once daily [Active]; lactulose 10 gram/15 mL Oral soln aj1 30 mL twice a day [Active]; pantoprazole 40 mg Oral TbEC 1 tab once daily [Active]; quetiapine Oral 1 tab nightly [Active]; spironolactone 100 mg Oral tab 1 tab once daily [Active]; tramadol 50 mg Oral tab 1 tab as needed [Active]; Xifaxan 550 mg Oral tab 1 tab 2 times per day [Active]; - PMHx: 19:40 Cirrhosis; Crohn's; Depression; Liver disease; ocd; aj1 - Immunization history:: Flu vaccine is up to date. - Social history:: Smoking status: Patient/guardian denies using tobacco. - Ebola Screening: : Patient denies travel to an Ebola-affected area in the 21 days before illness onset. ROS: 03/08 01:26 Eyes: Negative for injury, pain, redness, and discharge, ENT: Negative for injury, pkl pain, and discharge, Neck: Negative for injury, pain, and swelling, Cardiovascular: Negative for chest pain, palpitations, and edema, Respiratory: Negative for shortness of breath, cough, wheezing, and pleuritic chest pain, Abdomen/GI: Negative for abdominal pain, nausea, vomiting, diarrhea, and constipation, Back: Negative for injury and pain, : Negative for injury, bleeding, discharge, and swelling, Skin: Negative for injury, rash, and discoloration, Neuro: Negative for headache, weakness, numbness, tingling, and seizure. MS/extremity: Positive for contusion, pain, of the right knee. Exam: :26 Head/Face: Normocephalic, atraumatic. Eyes: Pupils equal round and reactive to light, pkl extra-ocular motions intact. Lids and lashes normal. Conjunctiva and sclera are non-icteric and not injected. Cornea within normal limits. Periorbital areas with no swelling, redness, or edema. ENT: Nares patent. No nasal discharge, no septal abnormalities noted. Tympanic membranes are normal and external auditory canals are clear. Oropharynx with no redness, swelling, or masses, exudates, or evidence of obstruction, uvula midline. Mucous membranes moist. Neck: Trachea midline, no thyromegaly or masses palpated, and no cervical lymphadenopathy. Supple, full range of motion without nuchal rigidity, or vertebral point tenderness. No Meningismus. Chest/axilla: Normal chest wall appearance and motion. Nontender with no deformity. No lesions are appreciated. Cardiovascular: Regular rate and rhythm with a normal S1 and S2. No gallops, murmurs, or rubs. Normal PMI, no JVD. No pulse deficits. Respiratory: Lungs have equal breath sounds bilaterally, clear to auscultation and percussion. No rales, rhonchi or wheezes noted. No increased work of breathing, no retractions or nasal flaring. Abdomen/GI: Soft, non-tender, with normal bowel sounds. No distension or tympany. No guarding or rebound. No evidence of tenderness throughout. Back: No spinal tenderness. No costovertebral tenderness. Full range of motion. Skin: Warm, dry with normal turgor. Normal color with no rashes, no lesions, and no evidence of cellulitis. Neuro: Awake and alert, GCS 15, oriented to person, place, time, and situation. Cranial nerves II-XII grossly intact. Motor strength 5/5 in all extremities. Sensory grossly intact. Cerebellar exam normal. Normal gait. : Musculoskeletal/extremity: Extremities: grossly normal except: noted in the right knee: pain, tenderness. Vital Signs: 03/07 19:40 BP 100 / 55; Pulse 89; Resp 20; Temp 98.0(TE); Pulse Ox 100% on R/A; Weight 77.11 kg aj1 (R); Height 4 ft. 11 in. (149.86 cm) (R); 20:46 BP 114 / 66; Pulse 90; Resp 18; Pulse Ox 98% on R/A; Pain 8/10; mg2 22:11 BP 112 / 62; Pulse 86; Resp 18; Pulse Ox 100% ; Pain 4/10; mg2 23:02 BP 114 / 54; Pulse 81; Resp 18; Pulse Ox 100% on R/A; mg2 03/08 00:05 Pulse 85; Resp 18; Pulse Ox 100% on R/A; Pain 5/10; mg2 01:48 BP 115 / 69; Pulse 70; Resp 18; Pulse Ox 100% on R/A; Pain 0/10; mg2 03/07 19:40 Body Mass Index 34.34 (77.11 kg, 149.86 cm) aj MDM: 03/07 21:40 Patient medically screened. pkl 03/08 01:26 Data reviewed: vital signs, nurses notes, lab test result(s), radiologic studies, CT pkl scan, plain films. 01:30 Patient medically screened. pk 03/07 21:19 Order name: Basic Metabolic Panel; Complete Time: 00:09 snw 03/07 21:19 Order name: CBC with Diff; Complete Time: 00:09 snw 03/07 21:19 Order name: Ckmb; Complete Time: 00:09 snw 03/07 21:19 Order name: CPK; Complete Time: 00:09 snw 03/07 21:19 Order name: LFT's; Complete Time: 00:09 snw 03/07 21:19 Order name: Magnesium; Complete Time: 00:09 snw 03/07 21:19 Order name: NT PRO-BNP; Complete Time: 00:09 snw 03/07 21:19 Order name: PT-INR; Complete Time: 22:25 snw 03/07 21:19 Order name: Ptt, Activated; Complete Time: 22:25 snw 03/07 21:19 Order name: Troponin (emerg Dept Use Only); Complete Time: 22:25 snw 03/07 21:19 Order name: XRAY Chest (1 view); Complete Time: 22:25 snw 03/07 21:19 Order name: AMMONIA; Complete Time: 22:25 snw 03/07 22:09 Order name: CBC Smear Scan; Complete Time: 00:09 EDMS 03/07 21:19 Order name: EKG; Complete Time: 21:20 snw 03/07 21:19 Order name: Cardiac monitoring; Complete Time: 21:58 snw 03/07 21:19 Order name: EKG - Nurse/Tech; Complete Time: 22:11 snw 03/07 21:19 Order name: IV Saline Lock; Complete Time: 21:58 snw 03/07 21:19 Order name: Labs collected and sent; Complete Time: 21:58 snw 03/07 21:19 Order name: O2 Per Protocol; Complete Time: 21:58 snw 03/07 21:19 Order name: O2 Sat Monitoring; Complete Time: 21:58 snw 03/07 21:49 Order name: Knee Right 3 View XRAY; Complete Time: 22:25 fc 03/07 22:26 Order name: CT Head Brain wo Cont; Complete Time: 01:24 pkl 03/08 01:31 Order name: Jose Antonio Wrap; Complete Time: 01:48 pkl Administered Medications: 00:06 Drug: Zofran 4 mg Route: IVP; Site: right forearm; mg2 01:48 Follow up: Response: No adverse reaction; Marked relief of symptoms mg2 00:06 Drug: Lactulose 20 grams Volume: 30 ml; Route: PO; mg2 01:48 Follow up: Response: No adverse reaction; Marked relief of symptoms mg2 00:06 Drug: Demerol 50 mg Route: IVP; Site: right forearm; mg2 01:48 Follow up: Response: No adverse reaction; Marked relief of symptoms mg2 Disposition: 03/08/18 01:30 Discharged to Home. Impression: Contusion right knee. S/P Fall. Cirrhosis of liver. - Condition is Stable. - Prescriptions for Ultram 50 mg Oral Tablet - take 1 tablet by ORAL route every 8 hours As needed; 20 tablet. - Medication Reconciliation Form, Thank You Letter, Antibiotic Education, Prescription Opioid Use form. - Follow up: Private Physician; When: 2 - 3 days; Reason: Re-evaluation by your physician. - Problem is new. - Symptoms have improved. Signatures: Dispatcher [facility] Minda Rascon RN RN aj1 Star Elena MD MD pkl Ela Alvarez, APPLICATIONS SCIENTIST-C APPLICATIONS SCIENTIST-Csnw Nakul Schaeffer, RN RN mg2 Corrections: (The following items were deleted from the chart) 01:49 01:30 03/08/2018 01:30 Discharged to Home. Impression: Contusion right knee. S/P Fall. mg2 Cirrhosis of liver. Condition is Stable. Forms are Medication Reconciliation Form, Thank You Letter, Antibiotic Education, Prescription Opioid Use. Follow up: Private Physician; When: 2 - 3 days; Reason: Re-evaluation by your physician. Problem is new. Symptoms have improved. pkl
[2018-03-08 02:01] VITALS: TEMP 98
[2018-03-08 02:03] VITALS: O2SAT 100
[2018-03-08 02:07] VITALS: BP 115/69
--- NOTE | 2018-03-08 07:17 | EKG ---
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
== END 2018-03-08 01:49 | disposition home or self-care (01) ==
LOC: ER 19:00
DX: S80.01XA Contusion of right knee, initial encounter (principal); K74.60 Unspecified cirrhosis of liver; W18.30XA Fall on same level, unspecified, initial encounter; Y93.89 Activity, other specified; Y92.9 Unspecified place or not applicable; Z88.1 Allergy status to other antibiotic agents; Z88.8 Allergy status to other drugs, medicaments and biological substances; Z91.048 Other nonmedicinal substance allergy status; F32.9 Major depressive disorder, single episode, unspecified
CPT/HCPCS: 36415; 70450; 71045; 73562; 80048; 80076; 82140; 82550; 82553; 83735; 83880; 84484; 85025; 85610; 85730; 93005; 96374; 96375; 99284; J2175; J2405

== ENCOUNTER 2018-03-17 19:09 | Observation (INO) | payer OTHER ==
--- OUTSIDE RECORDS SUMMARY | 2018-03-17 19:12 | XMS REPORT ---
[...] Status Dosage System Date Date Gabapentin ND 11573306897 100 MG Orally Active 2 cap in Three times a AM 3 caps day PM Cyanocobalamin ND 73857226756 1000 MCG/ML Active INJECT 1 ML IN MUSCLE ONCE A MONTH Furosemide ND 92109820754 40 MG Orally Active 1 tablet Once a day Seroquel ND 93692906518 50 MG Orally Active 1 tablet Once a day Ultram ND 62631874688 50 MG Orally Active 1 tablet every 6 hrs as needed Folic Acid ND 64143399279 1 MG Orally Active 1 tablet Once a day Spironolactone ND 03157022238 25 MG Orally Active 1 tablet Once a day with food Zofran ODT ND 40965178013 4 MG Orally Active 1 tablet every 8 hrs on the tongue and allow to dissolve Pantoprazole ND 16526204295 40 MG Orally Active 1 tablet Sodium Once a day Xifaxan ND 01652129889 550 MG Orally Active 1 tablet Twice a day Results No Known Results Summary Purpose eClinicalWorks Submission
--- OUTSIDE RECORDS SUMMARY | 2018-03-17 19:12 | XMS REPORT | Clinical Summary ---
:1960 Author Organization [facility] Address [address] [place] [address] Care Team Providers Name Role Phone Leon [...] Start Date End Date Status riFAXimin (XIFAXAN) 550 Take 550 mg Active mg tablet by mouth 2 (two) times a day. spironolactone Take 100 mg Active (ALDACTONE) 100 MG by mouth tablet every morning. cetirizine (ZyrTEC) 10 Take 10 mg by Active MG tablet mouth daily as needed. QUEtiapine (SEROquel) Take 50 mg by Active 50 MG tablet mouth nightly. pantoprazole (PROTONIX) Take 40 mg by Active 40 MG EC tablet mouth daily. traMADol (ULTRAM) 50 mg Take 50 mg by Active tablet mouth every 6 (six) hours as needed for moderate pain. furosemide (LASIX) 40 Take 1 tablet 90 tablet 3 01/25/2017 Active mg tabletIndications: (40 mg total) Other hypervolemia, by mouth Other cirrhosis of daily. liver, Awaiting liver transplant potassium chloride 20 Take 40 mEq 90 tablet 2 06/24/2017 Active mEq tablet extended by mouth releaseIndications: daily. Hypokalemia, Other hypervolemia, Localized edema, Awaiting liver transplant gabapentin (NEURONTIN) Take 300 mg Active 300 mg capsule by mouth 3 (three) times a day. methylPREDNISolone Take 1 tablet 1 tablet 0 03/26/2018 03/27/20 Active (MEDROL) 32 MG tablet (32 mg total) 18 by mouth daily for 1 day. Take 0700 AM 03/26/[address] scan at 1330 methylPREDNISolone Take 1 tablet 1 tablet 0 03/17/2018 03/18/20 Active (MEDROL) 32 MG tablet (32 mg total) 18 by mouth daily for 1 dose. Take 1130AM 03/26/[address] scan at 1330 diphenhydrAMINE Take 1 tablet 1 tablet 0 03/17/2018 Active (BENADRYL) 50 MG tablet (50 mg total) by mouth nightly as needed for itching for up to 1 dose. Take 1130AM 03/26/[address] scan at 1330 potassium chloride 20 Take 40 mEq 90 tablet 2 02/15/2017 06/24/20 Discontinued mEq tablet extended by mouth 17 releaseIndications: daily. Hypokalemia, Other hypervolemia, Localized edema, Awaiting liver transplant lactulose 10 gram/15 mL Take 15 mL 1350 mL 11 03/04/2017 03/04/20 (15 mL) (10 g total) 18 solutionIndications: by mouth 3 Hepatic encephalopathy (three) times a day. lactulose 20 gram/30 mL Take 30 mL 8100 mL 3 03/04/2017 03/04/20 solution (20 g total) 18 by mouth 3 (three) times a day. MEDROL 32 mg Take 1 tablet 2 tablet 0 04/25/2017 04/27/20 tabletIndications: (32 mg total) 17 Allergy to iodine by mouth daily for 2 days. diphenhydrAMINE Take 2 2 capsule 0 04/16/2017 04/16/20 (BENADRYL) 25 mg capsules (50 17 capsuleIndications: mg total) by Allergy to iodine mouth once for 1 dose. polyethylene glycol Take 17 g by 30 packet 0 05/10/2017 06/09/20 (MIRALAX) 17 gram mouth daily 17 packet for 30 days. polyethylene glycol Take 17 g by 30 packet 0 10/07/2017 11/07/19 (MIRALAX) 17 gram mouth daily 18 packet for 30 days. senna (SENOKOT) 8.6 mg Take 1 tablet 30 tablet 0 10/08/2017 11/08/19 tablet by mouth 18 daily for 30 days. Active Problems Problem Noted Date Acute hepatic encephalopathy 10/05/2017 Hematochezia 12/11/2016 Melena 12/11/2016 Overview: Added automatically from request for surgery [id number] Bipolar disorder, unspecified 10/09/2016 Persistent depressive disorder 10/09/2016 Alcoholic cirrhosis of liver 09/12/2016 Hepatic encephalopathy 06/26/2016 S/P TIPS (transjugular intrahepatic portosystemic shunt) 05/08/2016 Thrombocytopenia 05/04/2016 Cirrhosis of liver not due to alcohol 05/04/2016 Malnutrition 05/04/2016 Encounters Date Type Specialty Care Team Description 03/17/2018 Refill Transplant Dahlia Fernandez, Med Refill RN 03/17/2018 Orders Only Transplant Dahlia Fernandez, Awaiting liver transplant (Primary Dx); RN Alcoholic cirrhosis of liver with ascites; Cancer screening; S/P TIPS (transjugular intrahepatic portosystemic shunt) 03/17/2018 Orders Only Transplant Dahlia Fernandez, S/P TIPS (transjugular intrahepatic portosystemic shunt) (Primary Dx); RN Alcoholic cirrhosis of liver with ascites; Awaiting liver transplant; Cancer screening 03/14/2018 Telephone Transplant Padmini Soares [facility] BENNETT Reynolds 03/14/2018 Telephone Transplant Dahlia Fernandez, Dehydration RN 03/14/2018 Telephone Transplant Dahlia Fernandez, f/u RN 02/20/2018 Telephone Transplant Dahlia Fernandez, returning call RN 02/19/2018 Telephone Transplant Gene Díaz MA Sick Call 02/06/2018 Telephone Transplant Dahlia Fernandez, returning call RN 01/24/2018 Telephone Transplant Dahlia Fernandez, f/u RN 01/22/2018 Telephone Transplant AARTI Hanley Orders BENNETT Eaton 01/10/2018 Documentation Transplant Bonny Zambrano, MELD score updated to RN 15, recert due 04/12/18 01/10/2018 Telephone Transplant Gene Díaz MA Speak with Coordinator 12/30/2017 Telephone Transplant Talon, Carlene Question BENNETT Eaton 12/27/2017 Telephone Transplant Dahlia Fernandez, returning call RN 12/23/2017 Telephone Transplant Lida Arredondo Abdominal Pain MD Nellie 11/25/2017 Telephone Transplant Dahlia Fernandez, Labs f/u RN 11/22/2017 Hospital Encounter Transplant Jose Calos DENYS (nonalcoholic steatohepatitis); MD Ping Awaiting liver transplant 11/21/2017 Orders Only Transplant Dahlia Fernandez, MCFARLANE (nonalcoholic steatohepatitis) (Primary Dx); RN Awaiting liver transplant 11/21/2017 Telephone Transplant Dahlia Fernandez, labs RN 11/21/2017 Telephone Transplant Talon, Speak to Coordinator BENNETT Eaton 10/25/2017 Telephone Transplant Dahlia Fernandez, returning call RN 10/18/2017 Telephone Transplant Marita Gomez [facility] 10/16/2017 Telephone Transplant Renae Chadwick MA Med Inquiries 10/16/2017 Telephone Transplant Gene Díaz MA Returning Call 10/16/2017 Telephone Transplant Marita Gomez, TXP [facility] 10/15/2017 Telephone Transplant Dahlia Fernandez, f/u appt RN 10/11/2017 Documentation Transplant Dahlia Fernandez, MELD score updated to RN 12;recert due 01/04/18 10/05/2017 Hospital Encounter General Internal Jayarama, Hepatic - Medicine Alexis, DO encephalopathy 10/07/2017 Maximo, (Primary Dx) Elia Sheets MD 10/03/2017 Telephone Transplant Dahlia Fernandez, Inpatient in [place] AMARILIS lee 09/20/2017 Telephone Transplant Padmini Soares Waitlist Status MBENNETT Update 09/20/2017 Telephone Transplant Dahlia Fernandez, returning call RN 09/19/2017 Telephone Transplant Gene Díaz MA Speak with Coordinator 09/11/2017 Telephone Transplant Padmini Soares B12 Injection BENNETT Reynolds 09/11/2017 Telephone Transplant Renae Chadwick MA Speak [...] 06/27/2017 Telephone Transplant Talon Sick Call; returning Uma [place] call 06/24/2017 Refill Transplant Dahlia Fernandez, Med [...] Transplant Telma Medrano, Pt at the ER [place] 05/09/2017 Emergency Emergency Nasir Cordero Acute nonintractable headache, unspecified headache type (Primary Dx); - Medicine DO Pedro Generalized abdominal pain; 05/10/2017 Constipation, unspecified constipation type; Hyperammonemia 05/09/2017 Telephone Transplant Padmini Soares Sick Call M, MA 05/03/2017 Telephone Transplant Talon, Returning Callback BENNETT [...] Chadwick MA Request to speak to coordinator after 03/16/2017 Immunizations Name Dates Previously Given Next Due [...] Taken Blood Pressure 93/52 10/07/2017 3:41 PM COSMETIC SALES ADVISOR Pulse 82 10/07/2017 3:41 PM COSMETIC SALES ADVISOR Temperature 36.6 C (97.8 F) 10/07/2017 3:41 PM COSMETIC SALES ADVISOR Respiratory Rate 18 10/07/2017 3:41 PM COSMETIC SALES ADVISOR Oxygen Saturation 96% 10/07/2017 3:41 PM COSMETIC SALES ADVISOR Inhaled Oxygen Concentration - - Weight 80.8 kg (178 lb 1.6 oz) 10/07/2017 5:00 AM COSMETIC SALES ADVISOR Height 149.9 cm (4' 11") 10/05/2017 7:12 PM COSMETIC SALES ADVISOR Body Mass Index 35.97 10/07/2017 5:00 AM COSMETIC SALES ADVISOR Plan of Treatment Date Type Specialty Care Team Description 03/26/2018 Appointment Transplant Calos Garcia MD [address] [facility] [address] [place] [address] 03/26/2018 Appointment Radiology Calos Garcia MD [address] [facility] [address] [place] [address] Health Maintenance Due Date Last Done Comments COLON CANCER SCREENING 2011 SHINGRIX VACCINE (#1) 2011 INFLUENZA VACCINE 03/12/2018 05/08/2016 BREAST CANCER SCREENING 10/17/2018 10/17/2016, 10/09/2016, 10/09/2016 CERVICAL CANCER SCREENING 10/08/2019 10/08/2016 Implants Implanted Type Area Stroboroma Operator Device Expiration Model / Identifier Date Serial / Lot Stent Endprths Viatorr Tips 8cm 10mm - [id number] Surgical N/A: N/A W L GORE 02/06/2019 [id number] / Implanted: 05/04/2016 (Quantity not on file) Stents [id number] / [id number] Procedures Procedure Name Priority Date/Time Associated Comments [...] Routine 10/07/2017 4:00 Results for this AM COSMETIC SALES ADVISOR procedure are in the results section. PROTHROMBIN TIME WITH Routine 10/07/2017 4:00 Results for this INR AM COSMETIC SALES ADVISOR procedure are in the results section. COMPREHENSIVE METABOLIC Routine 10/07/2017 4:00 Results for this PANEL AM COSMETIC SALES ADVISOR procedure are in the results section. HC COMPLETE BLD COUNT Routine 10/07/2017 4:00 Results for this W/AUTO DIFF AM COSMETIC SALES ADVISOR procedure are in the results section. POC GLUCOSE Routine 10/06/2017 9:12 Results for this PM COSMETIC SALES ADVISOR procedure are in the results section. POC GLUCOSE Routine 10/06/2017 8:18 Results for this AM COSMETIC SALES ADVISOR procedure are in the results section. URINE CULTURE Routine 10/06/2017 7:58 Results for this AM COSMETIC SALES ADVISOR procedure are in the results section. URINALYSIS SCREEN AND Routine 10/06/2017 7:06 Results for this MICROSCOPY, WITH REFLEX AM COSMETIC SALES ADVISOR procedure are in TO CULTURE the results section. ESTIMATED GFR Routine 10/06/2017 5:45 Results for this AM COSMETIC SALES ADVISOR procedure are in the results section. PROTHROMBIN TIME WITH Routine 10/06/2017 5:45 Results for this INR AM COSMETIC SALES ADVISOR procedure are in the results section. COMPREHENSIVE METABOLIC Routine 10/06/2017 5:45 Results for this PANEL AM COSMETIC SALES ADVISOR procedure are in the results section. HC COMPLETE BLD COUNT Routine 10/06/2017 5:45 Results for this W/AUTO DIFF AM COSMETIC SALES ADVISOR procedure are in the results section. XR CHEST 1 VW PORTABLE STAT 10/05/2017 11:39 Results for this PM COSMETIC SALES ADVISOR procedure are in the results section. CT ABDOMEN PELVIS WO STAT 10/05/2017 11:01 Results for this CONTRAST PM COSMETIC SALES ADVISOR procedure are in the results section. CT HEAD WO CONTRAST STAT 10/05/2017 11:01 Results for this PM COSMETIC SALES ADVISOR procedure are in the results section. AMMONIA LEVEL STAT 10/05/2017 9:46 Results for this PM COSMETIC SALES ADVISOR procedure are in the results section. ESTIMATED GFR STAT 10/05/2017 9:46 Results for this PM COSMETIC SALES ADVISOR procedure are in the results section. LIPASE LEVEL STAT 10/05/2017 9:46 Results for this PM COSMETIC SALES ADVISOR procedure are in the results section. COMPREHENSIVE METABOLIC STAT 10/05/2017 9:46 Results for this PANEL PM COSMETIC SALES ADVISOR procedure are in the results section. PARTIAL THROMBOPLASTIN STAT 10/05/2017 9:46 Results for this TIME (PTT) PM COSMETIC SALES ADVISOR procedure are in the results section. PROTHROMBIN TIME WITH STAT 10/05/2017 9:46 Results for this INR PM COSMETIC SALES ADVISOR procedure are in the results section. HC COMPLETE BLD COUNT STAT 10/05/2017 9:46 Results for this W/AUTO DIFF PM COSMETIC SALES ADVISOR procedure are in the results section. CT [...] procedure are in the results section. after 03/16/2017 Results Estimated GFR (11/22/2017 2:23 PM)Only the most recent of5 resultswithin the time period is included. GFR Non Af Amer 46 (A) mL/min/1.73 m2 [facility] DEPARTMENT OF PATHOLOGY AND GENOMIC MEDICINE GFR Af Amer 56 (A) mL/min/1.73 m2 [facility] DEPARTMENT OF Comment: PATHOLOGY AND GENOMIC [...] Americans. Specimen Plasma specimen Performing Organization Address City/State/Zipcode Phone Number [facility] DEPARTMENT OF PATHOLOGY AND [address] [facility] [place] [address] [id number] Partial thromboplastin time, activated (11/22/2017 2:23 PM)Only the most recent of3 resultswithin the time period is included. PTT 34.8 23.0 - 36.0 sec [facility] DEPARTMENT OF PATHOLOGY Comment: AND GENOMIC MEDICINE PTT therapeutic range for unfractionated heparin is 61.0-112.0 seconds which corresponds to Anti-Xa 0.3-0.7 U/ml. Specimen Blood Performing Organization Address City/[facility] Phone Number [facility] DEPARTMENT OF PATHOLOGY AND [address] [place] [address] Prothrombin time with INR (11/22/2017 2:23 PM)Only the most recent of5 resultswithin the time period is included. Prothrombin time 16.8 (H) 12.0 - 15.0 sec [facility] DEPARTMENT OF PATHOLOGY AND GENOMIC MEDICINE INR 1.3 [facility] DEPARTMENT OF Comment: PATHOLOGY AND GENOMIC The International Normalized Ratio (INR) is a therapeutic MEDICINE monitoring tool for patients who are stable on oral anticoagulant therapy. An INR of 2.0-3.0 is suggested for deep vein thrombosis/pulmonary embolism. Specimen Blood Performing Organization Address City/[facility] Phone Number [facility] DEPARTMENT OF PATHOLOGY AND [address] [place] [address] CBC with platelet and differential (11/22/2017 2:23 PM)Only the most recent of5 resultswithin the time period is included. WBC 6.30 4.50 - 11.00 k/uL [facility] DEPARTMENT OF PATHOLOGY AND GENOMIC MEDICINE RBC 3.49 (L) 4.20 - 5.50 m/uL [facility] DEPARTMENT OF PATHOLOGY AND GENOMIC MEDICINE HGB 10.2 (L) 12.0 - 16.0 g/dL [facility] DEPARTMENT OF PATHOLOGY AND GENOMIC MEDICINE HCT 31.7 (L) 37.0 - 47.0 % [facility] DEPARTMENT OF PATHOLOGY AND GENOMIC MEDICINE MCV 90.8 82.0 - 100.0 fL [facility] DEPARTMENT OF PATHOLOGY AND GENOMIC MEDICINE MCH 29.2 27.0 - 34.0 pg [facility] DEPARTMENT OF PATHOLOGY AND GENOMIC MEDICINE MCHC 32.2 31.0 - 37.0 g/dL [facility] DEPARTMENT OF PATHOLOGY AND GENOMIC MEDICINE RDW - SD 50.7 37.0 - 55.0 fL [facility] DEPARTMENT OF PATHOLOGY AND GENOMIC MEDICINE MPV 11.4 8.8 - 13.2 fL [facility] DEPARTMENT OF PATHOLOGY AND GENOMIC MEDICINE Platelet count 86 (L) 150 - 400 k/uL [facility] DEPARTMENT OF PATHOLOGY AND GENOMIC MEDICINE Nucleated RBC 0.00 /100 WBC [facility] DEPARTMENT OF PATHOLOGY AND GENOMIC MEDICINE Neutrophils 71.3 (H) 39.0 - 69.0 % [facility] DEPARTMENT OF PATHOLOGY AND GENOMIC MEDICINE Lymphocytes 16.0 (L) 25.0 - 45.0 % [facility] DEPARTMENT OF PATHOLOGY AND GENOMIC MEDICINE Monocytes 10.5 (H) 0.0 - 10.0 % [facility] DEPARTMENT OF PATHOLOGY AND GENOMIC MEDICINE Eosinophils 1.1 0.0 - 5.0 % [facility] DEPARTMENT OF PATHOLOGY AND GENOMIC MEDICINE Basophils 0.6 0.0 - 1.0 % [facility] DEPARTMENT OF PATHOLOGY AND GENOMIC MEDICINE Immature granulocytes 0.5Comment: 0.0 - 1.0 % [facility] DEPARTMENT OF "Immature PATHOLOGY AND GENOMIC granulocytes" MEDICINE (promyelocytes, myelocytes, metamyelocytes) Specimen Blood Performing Organization Address City/[facility] Phone Number [facility] DEPARTMENT OF PATHOLOGY AND [address] [place] [phone] GENOMIC MEDICINE Hepatic function panel (11/22/2017 2:23 PM) Albumin 3.4 (L) 3.5 - 5.0 g/dL [facility] DEPARTMENT OF PATHOLOGY AND GENOMIC MEDICINE Total bilirubin 1.0 0.0 - 1.2 mg/dL [facility] DEPARTMENT OF PATHOLOGY AND GENOMIC MEDICINE Bilirubin direct 0.4 (H) 0.0 - 0.3 mg/dL [facility] DEPARTMENT OF PATHOLOGY AND GENOMIC MEDICINE Alkaline phosphatase 72 35 - 104 U/L [facility] DEPARTMENT OF PATHOLOGY AND GENOMIC MEDICINE Protein 7.5 6.3 - 8.3 g/dL [facility] DEPARTMENT OF Comment: PATHOLOGY AND GENOMIC [place] 4.6-7.0 g/dL MEDICINE 1 week 4.4-7.6 g/dL 7 months-1year5.1-7.3 g/dL 1-2 years5.6-7.5 g/dL >3 years6.0-8.0 g/dL 18-150 6.3-8.3 g/dL ALT 10 5 - 50 U/L [facility] DEPARTMENT OF PATHOLOGY AND GENOMIC MEDICINE AST 25 10 - 35 U/L [facility] DEPARTMENT OF PATHOLOGY AND GENOMIC MEDICINE Specimen Plasma specimen Performing Organization Address City/[facility] Phone Number [facility] DEPARTMENT OF PATHOLOGY AND [address] [place] [phone] GENOMIC MEDICINE Basic metabolic panel (11/22/2017 2:23 PM) Sodium 140 135 - 148 mEq/L [facility] DEPARTMENT OF PATHOLOGY AND GENOMIC MEDICINE Potassium 4.2 3.5 - 5.0 mEq/L [facility] DEPARTMENT OF PATHOLOGY AND GENOMIC MEDICINE Chloride 104 98 - 112 mEq/L [facility] DEPARTMENT OF PATHOLOGY AND GENOMIC MEDICINE CO2 22 (L) 24 - 31 mEq/L [facility] DEPARTMENT OF PATHOLOGY AND GENOMIC MEDICINE Anion gap 14 7 - 15 mEq/L [facility] DEPARTMENT OF PATHOLOGY Comment: AND GENOMIC MEDICINE Starting from November , anion gap calculation no longer incorporates potassium. Please note the change. BUN 17 6 - 20 mg/dL [facility] DEPARTMENT OF PATHOLOGY AND GENOMIC MEDICINE Creatinine 1.2 (H) 0.5 - 0.9 mg/dL [facility] DEPARTMENT OF PATHOLOGY AND GENOMIC MEDICINE Glucose 89 65 - 99 mg/dL [facility] DEPARTMENT OF PATHOLOGY AND GENOMIC MEDICINE Calcium 9.8 8.3 - 10.2 mg/dL [facility] DEPARTMENT OF PATHOLOGY AND GENOMIC MEDICINE Specimen Plasma specimen Performing Organization Address City/State/Zipcode Phone Number [facility] DEPARTMENT OF PATHOLOGY AND [address] [place] [address] GENOMIC MEDICINE Comprehensive metabolic panel (10/07/2017 4:00 AM)Only the most recent of4 resultswithin the time period is included. Sodium 143 135 - 148 mEq/L [facility] DEPARTMENT OF PATHOLOGY AND GENOMIC MEDICINE Potassium 3.7 3.5 - 5.0 mEq/L [facility] DEPARTMENT OF PATHOLOGY AND GENOMIC MEDICINE Chloride 107 98 - 112 mEq/L [facility] DEPARTMENT OF PATHOLOGY AND GENOMIC MEDICINE CO2 22 (L) 24 - 31 mEq/L [facility] DEPARTMENT OF PATHOLOGY AND GENOMIC MEDICINE Anion gap 14 7 - 15 mEq/L [facility] DEPARTMENT OF Comment: PATHOLOGY AND GENOMIC Starting from November , anion gap calculation MEDICINE no longer incorporates potassium. Please note the change. BUN 14 6 - 20 mg/dL [facility] DEPARTMENT OF PATHOLOGY AND GENOMIC MEDICINE Creatinine 1.1 (H) 0.5 - 0.9 mg/dL [facility] DEPARTMENT OF PATHOLOGY AND GENOMIC MEDICINE Glucose 91 65 - 99 mg/dL [facility] DEPARTMENT OF PATHOLOGY AND GENOMIC MEDICINE Calcium 9.3 8.3 - 10.2 mg/dL [facility] DEPARTMENT OF PATHOLOGY AND GENOMIC MEDICINE Protein 6.4 6.3 - 8.3 g/dL [facility] DEPARTMENT OF Comment: PATHOLOGY AND GENOMIC 4.6-7.0 g/dL MEDICINE 1 week 4.4-7.6 g/dL 7 months-1year5.1-7.3 g/dL 1-2 years5.6-7.5 g/dL >3 years6.0-8.0 g/dL 18-150 6.3-8.3 g/dL Albumin 3.1 (L) 3.5 - 5.0 g/dL [facility] DEPARTMENT OF PATHOLOGY AND GENOMIC MEDICINE A/G ratio 0.9 0.7 - 3.8 [facility] DEPARTMENT OF PATHOLOGY AND GENOMIC MEDICINE Alkaline phosphatase 53 35 - 104 U/L [facility] DEPARTMENT OF PATHOLOGY AND GENOMIC MEDICINE AST 21 10 - 35 U/L [facility] DEPARTMENT OF PATHOLOGY AND GENOMIC MEDICINE ALT <5 (A) 5 - 50 U/L [facility] DEPARTMENT OF PATHOLOGY AND GENOMIC MEDICINE Total bilirubin 1.0 0.0 - 1.2 mg/dL [facility] DEPARTMENT OF PATHOLOGY AND GENOMIC MEDICINE Specimen Plasma specimen Performing Organization Address [facility] Phone Number [facility] DEPARTMENT OF PATHOLOGY AND [address] [place] [address] GENOMIC MEDICINE POC glucose (10/06/2017 9:12 PM)Only the most recent of2 resultswithin the time period is included. POC glucose 95 65 - 99 mg/dL [facility] DEPARTMENT OF PATHOLOGY Comment: AND GENOMIC MEDICINE [facility] Notified RN Meter ID: [id number] Rn Maternity: Pardeep Benedict Performing Organization Address [facility] Phone Number [facility] DEPARTMENT OF PATHOLOGY AND [address] [place] [phone] [facility] MEDICINE Urine culture (10/06/2017 7:58 AM) Urine culture SEE COMMENTComment: Bacteriuria [facility] DEPARTMENT OF PATHOLOGY screen negative. AND GENOMIC MEDICINE Performing Organization Address [facility] Phone Number [facility] DEPARTMENT OF PATHOLOGY AND [address] [place] [phone] GENOMIC MEDICINE Urinalysis screen and microscopy, with reflex to culture (10/06/2017 7:06 AM) Specimen site Clean catch [facility] DEPARTMENT OF PATHOLOGY AND GENOMIC MEDICINE Color, UA Cortney [facility] DEPARTMENT OF PATHOLOGY AND GENOMIC MEDICINE Appearance, UA Hazy [facility] DEPARTMENT OF PATHOLOGY AND GENOMIC MEDICINE Specific gravity, UA 1.021 1.001 - 1.035 [facility] DEPARTMENT OF PATHOLOGY AND GENOMIC MEDICINE pH, UA 5.0 5.0 - 8.5 [facility] DEPARTMENT OF PATHOLOGY AND GENOMIC MEDICINE Protein, UA Negative Negative [facility] DEPARTMENT OF PATHOLOGY AND GENOMIC MEDICINE Glucose, UA Negative Negative [facility] DEPARTMENT OF PATHOLOGY AND GENOMIC MEDICINE Ketones, UA Negative Negative [facility] DEPARTMENT OF PATHOLOGY AND GENOMIC MEDICINE Bilirubin, UA Negative Negative [facility] DEPARTMENT OF PATHOLOGY AND GENOMIC MEDICINE Blood, UA Negative Negative [facility] DEPARTMENT OF PATHOLOGY AND GENOMIC MEDICINE Nitrite, UA Negative Negative [facility] DEPARTMENT OF PATHOLOGY AND GENOMIC MEDICINE Urobilinogen, UA 4.0 (A) <2.0 [facility] DEPARTMENT OF PATHOLOGY AND GENOMIC MEDICINE Leukocyte esterase, UA Negative Negative [facility] DEPARTMENT OF PATHOLOGY AND GENOMIC MEDICINE Epithelial cells, UA 10 /HPF [facility] DEPARTMENT OF PATHOLOGY AND GENOMIC MEDICINE Round epithelial cells, UA <1 0 - 1 /HPF [facility] DEPARTMENT OF PATHOLOGY AND GENOMIC MEDICINE WBC, UA 2 0 - 4 /HPF [facility] DEPARTMENT OF PATHOLOGY AND GENOMIC MEDICINE RBC, UA 1 0 - 2 /HPF [facility] DEPARTMENT OF PATHOLOGY AND GENOMIC MEDICINE Bacteria, UA Few None seen [facility] DEPARTMENT OF PATHOLOGY AND GENOMIC MEDICINE Yeast, UA None seen [facility] DEPARTMENT OF PATHOLOGY AND GENOMIC MEDICINE Yeast with pseudohyphae, UA None seen [facility] DEPARTMENT OF PATHOLOGY AND GENOMIC MEDICINE Hyaline casts, UA 1 /LPF [facility] DEPARTMENT OF PATHOLOGY AND GENOMIC MEDICINE Specimen Urine Performing Organization Address City/[facility] Phone Number [facility] DEPARTMENT OF PATHOLOGY AND [address] [place] [phone] [facility] XR Chest 1 Vw Portable (10/05/2017 11:39 PM) Narrative Performed At Examination:XR CHEST 1 VW PORTABLE RADIANT Clinical History:decompensated cirrhosis Comparison: None. Technique: Single frontal view of the chest is obtained. Findings: The lungs are free of infiltrate. The heart size is normal. No pleural effusion is seen. Impression: No active cardiopulmonary disease identified. [facility]-[id number] Procedure Note Interface, Radiology Results Incoming - 10/05/2017 11:44 PM COSMETIC SALES ADVISOR Examination: XR CHEST 1 VW PORTABLE Clinical History: decompensated cirrhosis Comparison: None. Technique: Single frontal view of the chest is obtained. Findings: The lungs are free of infiltrate. The heart size is normal. No pleural effusion is seen. Impression: No active cardiopulmonary disease identified. [facility]-[id number] Performing Organization Address City/[facility] Phone Number [facility] [address] [place] [address] CT Abdomen Pelvis Wo Contrast (10/05/2017 11:01 [...] recurrent hernia. 4. Bilateral nonobstructing intrarenal calculi. [facility]-[id number] Procedure Note Interface, Radiology Results Incoming - 10/05/2017 11:21 PM COSMETIC SALES ADVISOR Examination: CT ABDOMEN PELVIS WO CONTRAST Clinical [...] recurrent hernia. 4. Bilateral nonobstructing intrarenal calculi. [facility]-[id number] Performing Organization Address City/State/Zipcode Phone Number [facility] [address] [place] [address] CT Head Wo Contrast (10/05/2017 11:01 PM)Only the most recent of2 resultswithin the time period is included. Narrative Performed At EXAMINATION: [facility]: ams COMPARISON:05/10/2017 head [...] detailed above with no acute intracranial abnormality. [facility]-[id number] Procedure Note Interface, Radiology Results Incoming - 10/05/2017 11:13 PM COSMETIC SALES ADVISOR EXAMINATION: CT HEAD WO CONTRAST CLINICAL HISTORY: [...] detailed above with no acute intracranial abnormality. [facility]-[id number] Performing Organization Address [facility] [place] [address] Lipase level (10/05/2017 9:46 PM)Only the most recent of2 resultswithin the time period is included. Lipase 22 13 - 60 U/L [facility] DEPARTMENT OF PATHOLOGY AND GENOMIC MEDICINE Specimen Plasma specimen Performing Organization Address [facility] Phone Number [facility] DEPARTMENT OF PATHOLOGY AND [address] [place] [address] Ammonia level (10/05/2017 9:46 PM)Only the most recent of2 resultswithin the time period is included. Ammonia 77 (H) 11 - 51 umol/L [facility] DEPARTMENT OF PATHOLOGY AND GENOMIC MEDICINE Specimen Blood Performing Organization Address [facility] Phone Number [facility] DEPARTMENT OF PATHOLOGY AND [address] [place] [address] CT Renal Stone Protocol (05/10/2017 12:57 AM) Narrative Performed At CT RENAL STONE PROTOCOL [facility] CLINICAL INDICATION:abd paincirrhosis TECHNIQUE: Multidetector CT [...] 4. Moderate fecal material throughout the colon. [facility]-[id number] Procedure Note [facility], Radiology Results [facility] - 05/10/2017 1:[address] RENAL [...] 4. Moderate fecal material throughout the colon. [facility]-[id number] Performing Organization Address City/[facility]/Zipcode Phone Number [facility] [address] [place] [address] Lactic acid level (05/09/2017 9:02 PM) Lactic acid 3.3 (H) 0.5 - 2.2 mmol/L [facility] DEPARTMENT OF PATHOLOGY AND GENOMIC MEDICINE Specimen Plasma specimen Narrative Performed At 2X EXTRA GREEN [facility] DEPARTMENT OF PATHOLOGY AND GENOMIC 2X EXTRA LAV MEDICINE 1X EXTRA BLUE Performing Organization Address City/[facility]/Zipcode Phone Number [facility] DEPARTMENT OF PATHOLOGY AND [address] [place] [phone] [facility] MRI Abdomen W Wo Contrast (04/30/2017 1:30 PM) Narrative Performed At EXAMINATION:MRI ABDOMEN W WO CONTRAST [facility] CLINICAL HISTORY:Z88.8 Allergy status to other [...] HCC. 2.Patent portal vein. Status post TIPS. [facility]-[id number] Procedure Note [facility], Radiology Results Incoming - 04/30/2017 1:47 PM [...] 2. Patent portal vein. Status post TIPS. [id number] Performing Organization Address City/State/Zipcode Phone Number [facility] [address] [facility] [place] [address] after 03/16/2017 Insurance Payer Benefit Plan / Group Subscriber ID Type Phone Address MEDICARE MEDICARE PART A AND B xxxxxxxxxx Medicare [place], [place] MEDICAID MEDICAID xxxxxxxxx Medicaid Home: [address] [phone] [place], [place] [phone] BELLA BARRON Transplant Self 1960 Home: [address] [phone] [place], [place] [phone]
[2018-03-17 20:40] LABS: Absolute Lymphocytes (CBC) 1.1 K/uL (0.7-4.9); Absolute Monocytes 0.8 K/uL (0.1-1.3); Absolute Neutrophil 4.8 K/uL (1.8-8.0); Basophils % 0.5 % (0-1.3); Eosinophils % 2.1 % (0-4.4); Hematocrit 32.4 % (36.0-45.0); Lymphocytes % 16.6 % (15.3-44.8); MCH 31.6 pg (27.0-35.0); MCV 92.3 fL (80-100); Monocytes % 11.2 % (3.3-12.3); RBC Red Blood Cell Count 3.51 M/uL (3.86-4.86)
[2018-03-17 20:45] LABS: Albumin 3.2 g/dL (3.4-5.0); Bilirubin Direct 0.6 mg/dL (0-0.2); Bilirubin Total 1.8 mg/dL (0.2-1.0); Potassium 3.8 mmol/L (3.5-5.1); Protein, Total 7.4 g/dL (6.4-8.2)
[2018-03-17] MEDS ORDERED: NA CHLORIDE 0.9% 1,000 ML ONE (21:11)
--- NOTE | 2018-03-17 21:30 | RAD REPORT ---
EXAM DESCRIPTION: CT - Head Brain Wo Cont - 03/17/2018 9:23 pm CLINICAL HISTORY: Transient alteration of awareness COMPARISON: CT head March 07, 2018 TECHNIQUE: Axial 5 mm thick images of the head were obtained without IV contrast. All CT scans are performed using dose optimization technique as appropriate and may include automated exposure control or mA/KV adjustment according to patient size. FINDINGS: No intracranial hemorrhage, mass, edema or shift of mid-line structures. No acute infarcti on changes seen. No abnormal extra-axial fluid collections. Ventricles are normal. Punctate air densi ties near the sella are probably volume averaging artifacts related to the dense bone of the posterio r wall sella. If the patient underwent recent lumbar puncture, the small amount of air would not be u nexpected. Significance of this finding is doubtful. Mastoid air cells and visualized portions of the paranasal sinuses are clear. No acute bony findings. IMPRESSION: No hemorrhage, mass or acute intracranial finding suspected. Full findings detailed in t he body of the report. Suspicious change from March 07 is not identified.
--- NOTE | 2018-03-17 23:06 | ER ---
Nurse's Notes [facility] Name: Bella Barron Age: 57 yrs Sex: Female : 1960 Arrival Date: 03/17/2018 Time: 19:12 Bed 19 Private MD: Diagnosis: Altered mental status, unspecified;Weakness;Unspecified cirrhosis of liver-MCFARLANE;Encephalopathy, unspecified Presentation: 03/17 19:20 Presenting complaint: Patient states: Increasingly altered mental status over the last la1 week per , pt states feeling like her ammonia is getting high over the last few days, oriented x4 but drowsy and slow to respond. Transition of care: patient was not received from another setting of care. Risk Assessment: Do you want to hurt yourself or someone else? Patient reports no desire to harm self or others. Initial Sepsis Screen: Does the patient meet any 2 criteria? No. Patient's initial sepsis screen is negative. Does the patient have a suspected source of infection? No. Patient's initial sepsis screen is negative. Care prior to arrival: None. 19:20 Method Of Arrival: Wheelchair la1 19:20 Acuity: OLEG 3 la1 19:21 Onset of symptoms was March 17, 2018. la1 Historical: - Allergies: 19:22 Iodine; la1 19:22 Phenergan; la1 19:22 Rocephin; la1 - PMHx: 19:22 Cirrhosis; Crohn's; Depression; Liver disease; ocd; la1 - Immunization history:: Adult Immunizations up to date. - Social history:: Smoking status: Patient/guardian denies using tobacco. - Ebola Screening: : No symptoms or risks identified at this time. - Family history:: not pertinent. Screenin:11 Abuse screen: Denies threats or abuse. Denies injuries from another. Nutritional aj screening: No deficits noted. Tuberculosis screening: No symptoms or risk factors identified. Fall Risk None identified. Assessment: 20:11 General: Appears in no apparent distress. comfortable, obese, Behavior is calm, aj cooperative, appropriate for age. Pain: Denies pain. Neuro: Level of Consciousness is awake, alert, obeys commands, Oriented to person, place, time, situation, Appropriate for age. Respiratory: Airway is patent Respiratory effort is even, unlabored, Respiratory pattern is regular, symmetrical. GI: Abdomen is non-distended, obese. Derm: Skin is intact, is healthy with good turgor, Skin is pink, warm \T\ dry. normal. 21:15 Reassessment: Patient appears in no apparent distress at this time. Neuro: Reports lp1 feeling confused. Cardiovascular: Patient's skin is warm and dry. Derm: Skin is jaundiced. Musculoskeletal: Circulation, motion, and sensation intact. Vital Signs: 19:21 BP 106 / 71; Pulse 90; Resp 19; Temp 98.4; Pulse Ox 100% on R/A; Weight 77.11 kg; la1 Height 4 ft. 11 in. (149.86 cm); 21:15 BP 115 / 68; Pulse 82; Resp 18; Pulse Ox 98% on R/A; lp1 22:00 BP 113 / 60; Pulse 87; Resp 18; Pulse Ox 99% on R/A; lp1 22:30 BP 113 / 65; Pulse 90; Resp 18; Pulse Ox 98% on R/A; lp1 23:30 BP 102 / 81; Pulse 79; Resp 18; Pulse Ox 99% on R/A; lp1 03/18 00:00 BP 103 / 84; Pulse 80; Resp 18; Pulse Ox 99% on R/A; lp1 08 19:21 Body Mass Index 34.34 (77.11 kg, 149.86 cm) la1 ED Course: 03/17 19:12 Patient arrived in ED. al2 19:20 Arm band placed on left wrist. la1 19:21 Triage completed. la1 19:31 Callie Lewis, AMARILIS is Primary Nurse. aj 19:54 Ryan Hairston MD is Attending Physician. gs 20:11 Patient has correct armband on for positive identification. aj 20:11 Inserted saline lock: 22 gauge in right antecubital area, using aseptic technique. aj Blood collected. 21:04 Lucia Rogers, AMARILIS is Primary Nurse. lp1 21:04 Report received from Callie Lewis RN. lp1 21:23 CT Head Brain wo Cont In Process Unspecified. EDMS 21:35 No provider procedures requiring assistance completed. lp1 21:51 Attending Physician role handed off by Ryan Hairston MD david 21:51 James Rossi MD is Attending Physician. david 23:03 Kimberly King MD is Hospitalizing Provider. david 23:33 X-ray completed. Portable x-ray completed in exam room. Patient tolerated procedure kw well. 03/18 00:31 Patient admitted, IV remains in place. lp1 Administered Medications: 03/17 21:18 Drug: NS 0.9% 1000 ml Route: IV; Rate: 1 bolus; Site: right antecubital; lp1 23:00 Follow up: IV Status: Completed infusion; IV Intake: 1000ml [facility] 23:53 Drug: ProTONIX 40 mg Route: IVP; Site: right antecubital; 1 03/18 00:28 Follow up: Response: No adverse reaction lp1 03/17 23:53 Not Given (Patient Refused): Lactulose 30 grams 45 ml PO once lp1 23:53 Not Given (Patient Refused): Lactulose 30 grams 45 ml PO once lp1 Intake: 23:00 IV: 1000ml; Total: 1000ml. lp1 Outcome: 23:05 Decision to Hospitalize by Provider. [facility] 03/18 00:31 Condition: stable lp1 Instructed on the need for admit. 00:37 Admitted to Med/surg via wheelchair, room 201, with chart, Report called to Natalia Arroyo RN 00:58 Patient left the ED. lp1 Signatures: Dispatcher [employer] EDMS Callie Lewis RN RN aj Anderson, Corey, MD MD cha Whitley, Kimberlee kw Pena, Laura, RN RN john1 Anthony Samuel RN RN la1 Ryan Hairston MD MD gs Love, Belen rutherford
--- NOTE | 2018-03-17 23:06 | EDPHYS ---
Physician Documentation [facility] Name: Bella Barron Age: 57 yrs Sex: Female : 1960 Arrival Date: 03/17/2018 Time: 19:12 Bed 19 Private MD: ED Physician James Rossi HPI: 03/17 22:55 This 57 yrs old Female presents to ER via Wheelchair with complaints of david Weakness, Nausea/Vomiting, high amonia levels. 22:55 The patient presents to the emergency department with weakness of the entire body, david generalized weakness. Onset: The symptoms/episode began/occurred 2 day(s) ago. Associated signs and symptoms: The patient has no apparent associated signs or symptoms. Severity of symptoms: At their worst the symptoms were mild in the emergency department the symptoms are unchanged. Patient's baseline: Neuro: alert and fully oriented. The patient has not experienced similar symptoms in the past. Historical: - Allergies: 19:22 Iodine; la1 19:22 Phenergan; la1 19:22 Rocephin; la1 - PMHx: 19:22 Cirrhosis; Crohn's; Depression; Liver disease; ocd; la1 - Immunization history:: Adult Immunizations up to date. - Social history:: Smoking status: Patient/guardian denies using tobacco. - Ebola Screening: : No symptoms or risks identified at this time. - Family history:: not pertinent. ROS: 22:55 Constitutional: Negative for fever, chills, and weight loss, Eyes: Negative for injury, david pain, redness, and discharge, ENT: Negative for injury, pain, and discharge, Neck: Negative for injury, pain, and swelling, Cardiovascular: Negative for chest pain, palpitations, and edema, Respiratory: Negative for shortness of breath, cough, wheezing, and pleuritic chest pain, Abdomen/GI: Negative for abdominal pain, nausea, vomiting, diarrhea, and constipation, Back: Negative for injury and pain, : Negative for injury, bleeding, discharge, and swelling, MS/Extremity: Negative for injury and deformity, Skin: Negative for injury, rash, and discoloration. 22:55 Neuro: Positive for altered mental status, weakness. Exam: 22:55 Constitutional: This is a well developed, well nourished patient who is awake, alert, david and in no acute distress. Head/Face: Normocephalic, atraumatic. Eyes: Pupils equal round and reactive to light, extra-ocular motions intact. Lids and lashes normal. Conjunctiva and sclera are non-icteric and not injected. Cornea within normal limits. Periorbital areas with no swelling, redness, or edema. ENT: Nares patent. No nasal discharge, no septal abnormalities noted. Tympanic membranes are normal and external auditory canals are clear. Oropharynx with no redness, swelling, or masses, exudates, or evidence of obstruction, uvula midline. Mucous membranes moist. Neck: Trachea midline, no thyromegaly or masses palpated, and no cervical lymphadenopathy. Supple, full range of motion without nuchal rigidity, or vertebral point tenderness. No Meningismus. Chest/axilla: Normal chest wall appearance and motion. Nontender with no deformity. No lesions are appreciated. Cardiovascular: Regular rate and rhythm with a normal S1 and S2. No gallops, murmurs, or rubs. Normal PMI, no JVD. No pulse deficits. Respiratory: Lungs have equal breath sounds bilaterally, clear to auscultation and percussion. No rales, rhonchi or wheezes noted. No increased work of breathing, no retractions or nasal flaring. Abdomen/GI: Soft, non-tender, with normal bowel sounds. No distension or tympany. No guarding or rebound. No evidence of tenderness throughout. Back: No spinal tenderness. No costovertebral tenderness. Full range of motion. Female : Normal external genitalia. Skin: Warm, dry with normal turgor. Normal color with no rashes, no lesions, and no evidence of cellulitis. MS/ Extremity: Pulses equal, no cyanosis. Neurovascular intact. Full, normal range of motion. Psych: Awake, alert, with orientation to person, place and time. Behavior, mood, and affect are within normal limits. 22:55 Neuro: Orientation: no acute changes, Mentation: slow to respond, Memory: immediate memory is intact, remote memory is intact. recent memory is intact, Cerebellar function: is grossly normal, is grossly normal based on the patient's age, no acute changes, Motor: is normal, is grossly normal based on the patient's age, no acute changes, moves all fours, Sensation: is normal, Gait: not tested. Babinski testing is normal. 23:09 Neck: ROM/movement: is normal, no acute changes, Meningeal signs: are not present, [facility] Kernig's sign is negative, Brudzinski's sign is negative. Vital Signs: 19:21 BP 106 / 71; Pulse 90; Resp 19; Temp 98.4; Pulse Ox 100% on R/A; Weight 77.11 kg; la1 Height 4 ft. 11 in. (149.86 cm); 21:15 BP 115 / 68; Pulse 82; Resp 18; Pulse Ox 98% on R/A; lp1 22:00 BP 113 / 60; Pulse 87; Resp 18; Pulse Ox 99% on R/A; lp1 22:30 BP 113 / 65; Pulse 90; Resp 18; Pulse Ox 98% on R/A; lp1 23:30 BP 102 / 81; Pulse 79; Resp 18; Pulse Ox 99% on R/A; lp1 03/18 00:00 BP 103 / 84; Pulse 80; Resp 18; Pulse Ox 99% on R/A; lp1 03/17 19:21 Body Mass Index 34.34 (77.11 kg, 149.86 cm) la1 MDM: 03/17 20:54 Patient medically screened. 21:51 Patient medically screened. [facility] 22:55 Data reviewed: vital signs, nurses notes, lab test result(s), EKG, radiologic studies, [facility] CT scan, plain films. 08 20:05 Order name: Basic Metabolic Panel; Complete Time: 20:54 03/17 20:05 Order name: CBC with Diff; Complete Time: 20:54 03/17 20:05 Order name: Creatinine for Radiology; Complete Time: 20:54 03/17 20:05 Order name: Hepatic Function; Complete Time: 20:54 03/17 20:05 Order name: Lipase; Complete Time: 20:54 03/17 20:05 Order name: Urine Microscopic Only 03/17 20:05 Order name: AMMONIA; Complete Time: 20:54 03/17 20:55 Order name: Urine Drug Screen 03/17 20:55 Order name: ETOH Level 03/17 22:53 Order name: Ckmb [facility] 03/17 21:10 Order name: CT Head Brain wo Cont; Complete Time: 21:32 03/17 22:53 Order name: CPK [facility] 03/17 22:53 Order name: Magnesium [facility] 03/17 22:53 Order name: NT PRO-BNP [facility] 03/17 22:53 Order name: PT-INR [facility] 03/17 22:54 Order name: Ptt, Activated [facility] 03/17 22:54 Order name: Troponin (emerg Dept Use Only) [facility] 03/17 22:54 Order name: XRAY Chest (1 view) [facility] 03/17 22:54 Order name: EKG; Complete Time: 22:54 [facility] 03/17 23:08 Order name: CONS Physician Consult [facility] 03/18 00:31 Order name: Urine Dipstick--Ancillary (enter results) [facility] 03/18 00:49 Order name: Urine Dipstick-Ancillary [facility] 03/17 20:05 Order name: IV Saline Lock; Complete Time: 20:21 03/17 20:05 Order name: Labs collected and sent; Complete Time: 20:21 03/17 20:05 Order name: Urine Dipstick-Ancillary (obtain specimen); Complete Time: 00:28 03/17 22:54 Order name: Cardiac monitoring; Complete Time: 23:53 [facility] 03/17 22:54 Order name: EKG - Nurse/Tech; Complete Time: 23:53 [facility] 03/17 22:54 Order name: O2 Per Protocol; Complete Time: 22:56 [facility] 03/17 22:54 Order name: O2 Sat Monitoring; Complete Time: 22:56 [facility] Administered Medications: 21:18 Drug: NS 0.9% 1000 ml Route: IV; Rate: 1 bolus; Site: right antecubital; lp1 23:00 Follow up: IV Status: Completed infusion; IV Intake: 1000ml lp1 23:53 Drug: ProTONIX 40 mg Route: IVP; Site: right antecubital; lp1 03/18 00:28 Follow up: Response: No adverse reaction lp1 03/17 23:53 Not Given (Patient Refused): Lactulose 30 grams 45 ml PO once lp1 23:53 Not Given (Patient Refused): Lactulose 30 grams 45 ml PO once lp1 Disposition: 03/17/18 23:05 Hospitalization ordered by Kimberly King for Inpatient Admission. Preliminary diagnosis are Altered mental status, unspecified, Weakness, Unspecified cirrhosis of liver - MCFARLANE, Encephalopathy, unspecified. - Bed requested for Telemetry/MedSurg (Inpatient). - Status is Inpatient Admission. lp1 - Condition is Fair. - Problem is new. - Symptoms have improved. UTI on Admission? No Signatures: Dispatcher [employer] EDIL James Rossi MD MD cha Pena, Laura, RN RN lp1 Anthony Samuel RN RN la1 Ryan Hairston MD MD gs [place], MyKena mw2 Corrections: (The following items were deleted from the chart) 20:17 20:06 HEPATIC FUNCTION+C.LAB.BRZ ordered. EDMS EDMS 20:17 20:06 CBC+H.LAB.BRZ ordered. EDIL EDMS 20:17 20:06 BASIC METABOLIC PANEL+C.LAB.BRZ ordered. EDIL EDMS 20:18 20:06 AMMONIA+C.LAB.BRZ ordered. EDIL EDMS 23:28 23:05 Hospitalization Ordered by Kimberly King MD for Inpatient Admission. Preliminary mw2 diagnosis is Altered mental status, unspecified; Weakness; Unspecified cirrhosis of liver - MCFARLANE; Encephalopathy, unspecified. Bed requested for Telemetry/MedSurg (Inpatient). Status is Inpatient Admission. Condition is Fair. Problem is new. Symptoms have improved. UTI on Admission? No. david 03/18 00:58 08 23:28 03/17/2018 23:05 Hospitalization Ordered by Kimberly King MD for Inpatient lp1 Admission. Preliminary diagnosis is Altered mental status, unspecified; Weakness; Unspecified cirrhosis of liver - MCFARLANE; Encephalopathy, unspecified. Bed requested for Telemetry/MedSurg (Inpatient). Status is Inpatient Admission. Condition is Fair. Problem is new. Symptoms have improved. UTI on Admission? No. mw2
[2018-03-17] MEDS ORDERED: LACTULOSE 20 GM/30 ML UCUP ONE (23:43)
[2018-03-17] MEDS ORDERED: PANTOPRAZOLE 40 MG INJ ONE (23:43)
[2018-03-18 00:14] LABS: Protime INR 1.27
--- NOTE | 2018-03-18 00:22 | P.HP ---
Certification for Inpatient Patient admitted to: Inpatient With expected LOS: >2 Midnights Practitioner: I am a practitioner with admitting privileges, knowledge of patient current condition, hospital course, and medical plan of care. Services: Services provided to patient in accordance with Admission requirements found in Title 42 Section 412.3 of the Code of Federal Regulations Patient History Date of Service: 03/17/18 Reason for admission: AMS History of Present Illness: Ms Barron is a 57 old woman, with history of liver cirrhosis, status post TIPS, Crohn's disease, who start about 3 days ago to be more weak and lethargic. There are no history of fever or chills. In ED, the patient received IV fluids , and brother he improved her mentation. She was able to tell me that that is not remember what happened over the weekend. She feels significantly better now. Last week, she was talk by her PCP, that is getting dehydrated, and she needs to keep up with water intake. She denied any abdominal pain, shortness of breath or chest pain. Lab work shows normal WBC count, ammonia level within normal limits as well, Creatinine is elevated. CT of the head shows no acute abnormality. Allergies ceftriaxone [From Rocephin] Allergy (Unverified 12/21/17 00:32) Unknown iodine Allergy (Verified 10/03/17 02:36) Anaphylaxis promethazine [From Phenergan] Allergy (Verified 10/03/17 02:36) Unknown Fish Allergy (Uncoded 08/23/16 14:07) Rash Home medications list reviewed: Yes Home Medications: Furosemide 40 mg PO DAILY 08/22/16 Lactulose [Generlac] 30 ml PO TID 08/22/16 Rifaximin [Xifaxan] 550 mg PO BID 08/22/16 Spironolactone 100 mg PO DAILY 08/22/16 Potassium Bicarbonate/Cit AC [Potassium 25 Meq Tablet Eff] 25 meq PO DAILY #30 tablet.eff 08/24/16 Gabapentin [Neurontin*] 300 mg PO BID 04/25/17 Ondansetron [Ondansetron Odt] 1 tab PO Q8H 04/25/17 Pantoprazole [Protonix Tab*] 40 mg PO DAILY 04/25/17 Quetiapine [Seroquel*] 100 mg PO BEDTIME 04/25/17 traMADol HCL [Ultram*] 100 mg PO DAILY 04/25/17 Cyanocobalamin (Vitamin B-12) [Cyanocobalamin Injection] 10,000 mcg IM SEECOM - Past Medical/Surgical History Diabetic: No -: Crohn's -: Liver disease -: Depression -: Cirrhosis -: OCD -: multiple abdominal surgery -: TIPS procedure - Family History Family History: Reviewed- Non-Contributory - Social History Smoking Status: Former smoker Alcohol use: No CD- Drugs: Yes Caffeine use: Yes Place of Residence: Home Review of Systems 10-point ROS is otherwise unremarkable Physical Examination - Physical Exam General: Alert, In no apparent distress, Oriented x3 HEENT: Atraumatic, PERRLA, Mucous membr. moist/pink, EOMI, Sclerae nonicteric Neck: Supple, 2+ carotid pulse no bruit, No LAD, Without JVD or thyroid abnormality Respiratory: Clear to auscultation bilaterally, Normal air movement Cardiovascular: Regular rate/rhythm, Normal S1 S2 Gastrointestinal: Normal bowel sounds, No tenderness Musculoskeletal: No tenderness Integumentary: No rashes Neurological: Normal speech, Normal strength at 5/5 x4 extr, Normal tone, Normal affect Lymphatics: No axilla or inguinal lymphadenopathy - Studies Laboratory Data (last 24 hrs) 03/17/18 20:06: WBC Cancelled, Hgb Cancelled, Hct Cancelled, Plt Count Cancelled 03/17/18 20:06: Sodium Cancelled, Potassium Cancelled, BUN Cancelled, Creatinine Cancelled, Glucose Cancelled, Total Bilirubin Cancelled, AST Cancelled, ALT Cancelled, Alkaline Phosphatase Cancelled 03/17/18 20:05: Creatinine 1.40 H 03/17/18 20:05: WBC 6.8 D, Hgb 11.1 L, Hct 32.4 L, Plt Count 90 L 03/17/18 20:05: Sodium 143, Potassium 3.8, BUN 16, Creatinine 1.50 H, Glucose 97 , Total Bilirubin 1.8 H, AST 22, ALT 15, Alkaline Phosphatase 71, Lipase 110 Assessment and Plan - Problems (Diagnosis) (1) Acute encephalopathy Current Visit: Yes Status: Acute (2) Dehydration symptoms Onset Date: 04/29/17 Current Visit: No Status: Acute (3) Crohn disease Onset Date: 10/03/17 Current Visit: No Status: Chronic Qualifiers: Gastrointestinal tract location: small intestine Digestive disease complication type: without complication Qualified Code(s): K50.00 - Crohn's disease of small intestine without complications (4) Hepatic cirrhosis Onset Date: 10/03/17 Current Visit: No Status: Chronic Qualifiers: Hepatic cirrhosis type: unspecified hepatic cirrhosis Ascites presence: without ascites Qualified Code(s): K74.60 - Unspecified cirrhosis of liver - Plan The patient will be admitted to the hospital due to acute encephalopathy, likely secondary to volume depletion. The patient mentation already improved after receive IV fluids. Will continue IV normal saline infusion. Ammonia level is within normal limits. - Advance Directives Does patient have a Living Will: No Does patient have a Durable POA for Healthcare: Yes - Code Status/Comfort Care Code Status Assessed: Yes Code Status: Full Code
[2018-03-18 00:29] LABS: CKMB Creatine Kinase MB < 1.0 ng/mL (0.3-3.6); Creatine Phosphokinase 34 U/L (26-192); Magnesium 1.8 mg/dL (1.8-2.4); NT PRO-BNP 49 pg/mL (<125)
[2018-03-18 00:45] LABS: Barbiturates NEGATIVE (NEGATIVE); Benzodiazepines NEGATIVE (NEGATIVE); Cocaine NEGATIVE (NEGATIVE); METHAMPHETAM NEGATIVE (NEGATIVE); Methadone NEGATIVE (NEGATIVE); Opiates NEGATIVE (NEGATIVE); Phencyclidine NEGATIVE (NEGATIVE); THC Cannibis NEGATIVE (NEGATIVE)
[2018-03-18 00:49] LABS: Urine Blood NEGATIVE (NEG); Urine Glucose NEGATIVE (NEG); Urine Protein NEGATIVE (NEG); Urine Specific Gravity 1.025 (1.005-1.030); Urine pH 5.5 (5.0-7.0)
[2018-03-18] MEDS ORDERED: ONDANSETRON 4 MG/2 ML VIAL IV PRN (00:53)
[2018-03-18 01:08] VITALS: O2SAT 99
[2018-03-18 01:09] LABS: Urine Bacteria >50 /HPF (<20); Urine Culture Reflex Order REFLEXED; Urine RBC <5 /HPF (NONE SEEN)
[2018-03-18 01:41] VITALS: BMI 36.3
[2018-03-18] MEDS: NA CHLORIDE 0.9% 1,000 ML IV SCH ×2 (02:01→07:08)
[2018-03-18] MEDS ORDERED: MAGNESIUM SULFATE 1 gm IVPB 1 GM/100 ML BAG IV ONE (06:18)
--- NOTE | 2018-03-18 06:52 | EKG ---
Test Date: 2018-03-17 Test Time: 23:33:04 Male Infertility Specialist: SHERIN MEASUREMENT RESULTS: Intervals: Rate: 78 NC: 170 QRSD: 76 QT: 390 QTc: 444 [place]: P: 52 NC: 170 QRS: 21 T: 50 INTERPRETIVE STATEMENTS: Normal sinus rhythm Normal ECG Compared to ECG 03/07/2018 22:06:38 No significant changes Electronically Signed On 03-18-18 06:51:16 CDT by Rodriguez Cruz
[2018-03-18] MEDS ORDERED: POTASSIUM 25 MEQ EFFERV TAB PO ONE (08:08)
--- NOTE | 2018-03-18 08:26 | RAD REPORT ---
EXAM DESCRIPTION: RAD - Chest Single View - 03/17/2018 11:37 pm CLINICAL HISTORY: COUGH Chest pain. COMPARISON: Chest Single View dated 03/07/2018; Chest Single View dated 02/19/2018; Chest Single View dated 10/02/2017; Chest Single View dated 08/29/2017 FINDINGS: Portable technique limits examination quality. The lungs are grossly clear. The heart is normal in size. No displaced fractures. IMPRESSION: No acute intrathoracic process suspected.
--- NOTE | 2018-03-18 08:38 | P.DS ---
Admission Date: 03/17/18 Discharge Date: 03/18/18 Primary Care Provider: Dr. Díaz; GI-Dr. Garcia Disposition: ROUTINE DISCHARGE Discharge Condition: GOOD Reason for Admission: AMS Procedures: CT Head: FINDINGS: No intracranial hemorrhage, mass, edema or shift of mid-line structures. No acute infarction changes seen. No abnormal extra-axial fluid collections. Ventricles are normal. Punctate air densities near the sella are probably volume averaging artifacts related to the dense bone of the posterior wall sella. If the patient underwent recent lumbar puncture, the small amount of air would not be unexpected. Significance of this finding is doubtful. Mastoid air cells and visualized portions of the paranasal sinuses are clear. No acute bony findings. IMPRESSION: No hemorrhage, mass or acute intracranial finding suspected. Full findings detailed in the body of the report. Suspicious change from March 07 is not identified. - Problems (1) GERD (gastroesophageal reflux disease) Current Visit: Yes Status: Suspected Qualifiers: Esophagitis presence: esophagitis presence not specified Qualified Code(s) : K21.9 - Gastro-esophageal reflux disease without esophagitis (2) Chronic renal disease Current Visit: Yes Status: Chronic Qualifiers: Chronic kidney disease stage: stage 3 (moderate) Qualified Code(s): N18.3 - Chronic kidney disease, stage 3 (moderate) (3) Dehydration symptoms Onset Date: 03/18/18 Current Visit: Yes Status: Acute (4) Crohn disease Onset Date: 10/03/17 Current Visit: No Status: Chronic Qualifiers: Gastrointestinal tract location: small intestine Digestive disease complication type: without complication Qualified Code(s): K50.00 - Crohn's disease of small intestine without complications (5) Hepatic cirrhosis Onset Date: 10/03/17 Current Visit: No Status: Chronic Qualifiers: Hepatic cirrhosis type: unspecified hepatic cirrhosis Ascites presence: without ascites Qualified Code(s): K74.60 - Unspecified cirrhosis of liver (6) Anemia Current Visit: Yes Status: Chronic Qualifiers: Anemia type: other cause Other causes of anemia: chronic disease, other Qualified Code(s): D63.8 - Anemia in other chronic diseases classified elsewhere (7) Thrombocytopenia Current Visit: Yes Status: Chronic (8) Neuropathy Current Visit: Yes Status: Chronic (9) Insomnia Current Visit: Yes Status: Chronic Qualifiers: Insomnia type: unspecified Qualified Code(s): G47.00 - Insomnia, unspecified (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 Patient has been feeling increased fatigue over the past several days. Patient is compliant with her medications including lactulose and Xifaxan. The patient is also taking 2 diuretics including Lasix and spironolactone. It was reported that she needed to increase her fluid intake. She came to the ER for further evaluation. Hospital Course: During the course of her stay the patient was found to be dehydrated. Her increased fatigue was likely related to poor oral intake and possibly related to her diuretic therapy. Her ammonia was evaluated and within normal range. Patient is compliant with her Xifaxan and lactulose for cirrhosis. CT head showed no acute changes. Chest x-ray unremarkable. At discharge she will continue with Xifaxan 550 mg 1 pill twice daily and lactulose 30 mL 3 times a day. It will be important for her to have at least 3-4 bowel movements per day. Medications may need to be adjusted to help with this. I will recommend to decrease her spironolactone to 25 mg daily. At discharge, she may continue with Lasix 40 mg daily. She is to monitor her fluid intake. The patient is also taking Potassium. This will need to be monitored closely. Medications may need to be further adjusted if the patient develops more dehydration or edema. Recommendation for the patient follow up with her GI specialist. Patient currently on liver transplant list. Future medications will need to be hepatically dosed. Recommendation to recheck lab-BMP in 1 week to monitor. Patient has chronic renal disease. Renal function remained stable. No evidence of infection noted. Recommendations for the patient to recheck lab-BMP in 1 week. Recommendation is for the patient to follow up with nephrology as an outpatient to further monitor. Recommendation on no further use of nonsteroidal anti-inflammatories. Future medications will need to be renally dosed. Patient has anemia and thrombocytopenia likely related to her chronic cirrhosis. Patient may continue with B12 supplementation. Recommendation is to recheck lab-CBC in 1 week to monitor progress. This can be further monitored by her PCP. The patient has neuropathy. She will continue with her medication-Neurontin 600 mg 1 pill twice daily. The patient also takes tramadol as needed. She may need to limit tramadol medication if she is without pain. Patient has insomnia. I will recommend to discontinue Lunesta as this may increase fatigue. Patient has Opioid induced constipation. Patient may continue with her medication-Relistor. Patient has GERD. She will continue with Protonix 40 mg 1 pill once daily. Vital Signs/Physical Exam: Temp Pulse Resp BP Pulse Ox 97.3 F 83 18 112/53 L 99 03/18/18 04:00 03/18/18 04:00 03/18/18 04:00 03/18/18 04:00 03/18/18 04:00 General: Alert, In no apparent distress, Oriented x3, Cooperative HEENT: Atraumatic Neck: Supple Respiratory: Clear to auscultation bilaterally, Normal air movement Cardiovascular: Normal pulses, Regular rate/rhythm Gastrointestinal: Normal bowel sounds, Soft and benign, Non-distended, No ascites, No tenderness, No masses, No rebound, No guarding Musculoskeletal: No erythema, No tenderness, No warmth Integumentary: No tenderness/swelling, No erythema, No warmth, No cyanosis Neurological: Normal speech, Normal strength at 5/5 x4 extr, Normal tone, Normal affect Laboratory Data at Discharge: WBC Cancelled 03/17/18 20:06 Hgb Cancelled 03/17/18 20:06 Hct Cancelled 03/17/18 20:06 Plt Count Cancelled 03/17/18 20:06 PT 15.0 SECONDS (9.5-12.5) H 03/17/18 23:50 INR 1.27 03/17/18 23:50 APTT 32.6 SECONDS (24.3-36.9) 03/17/18 23:50 Sodium Cancelled 03/17/18 20:06 Potassium Cancelled 03/17/18 20:06 BUN Cancelled 03/17/18 20:06 Creatinine Cancelled 03/17/18 20:06 Glucose Cancelled 03/17/18 20:06 Magnesium 1.8 mg/dL (1.8-2.4) 03/17/18 23:50 Total Bilirubin Cancelled 03/17/18 20:06 AST Cancelled 03/17/18 20:06 ALT Cancelled 03/17/18 20:06 Alkaline Phosphatase Cancelled 03/17/18 20:06 Lipase 110 U/L (73-393) 03/17/18 20:05 Home Medications: Furosemide 40 mg PO DAILY 08/22/16 Lactulose [Generlac] 30 ml PO TID 08/22/16 Rifaximin [Xifaxan] 550 mg PO BID 08/22/16 Potassium Bicarbonate/Cit AC [Potassium 25 Meq Tablet Eff] 25 meq PO DAILY #30 tablet.eff 08/24/16 Gabapentin [Neurontin*] 600 mg PO BID 04/25/17 Ondansetron [Ondansetron Odt] 1 tab PO Q8H PRN 04/25/17 Pantoprazole [Protonix Tab*] 40 mg PO DAILY 04/25/17 Quetiapine [Seroquel*] 100 mg PO BEDTIME 04/25/17 traMADol HCL [Ultram*] 100 mg PO BID PRN 04/25/17 Cyanocobalamin (Vitamin B-12) [Cyanocobalamin Injection] 10,000 mcg IM [facility]ECOM Cyanocobalamin [Vitamin B-12*] 1,000 mg IM SEECOM 03/18/18 Methylnaltrexone Talmo [Relistor] 450 mg PO DAILY 03/18/18 Senosides [Senokot*] 2 tab PO DAILY 03/18/18 Spironolactone [Aldactone] 25 mg PO DAILY #30 tab 03/18/18 New Medications: Spironolactone [Aldactone] 25 mg PO DAILY #30 tab Patient Discharge Instructions: 1. Patient will need to follow up with a PCP in 1 week to follow up this hospitalization. 2. Patient presented with increased fatigue likely related to dehydration. Her dehydration may be related to poor oral intake and possibly related to her diuretic therapy. Her ammonia was within normal range. Patient is compliant with her Xifaxan and lactulose for cirrhosis. CT head showed no acute changes. Chest x-ray unremarkable. At discharge she will continue with Xifaxan 550 mg 1 pill twice daily and lactulose 30 mL 3 times a day. It will be important for her to have at least 3-4 bowel movements per day. Medications may need to be adjusted to help with this. At discharge, I will recommend to decrease her spironolactone to 25 mg daily. At discharge, she may continue with Lasix 40 mg daily. She is to monitor her fluid intake. Medications may need to be further adjusted if the patient develops more dehydration or edema. Recommendation for the patient follow up with her GI specialist. Patient currently on liver transplant list. Future medications will need to be hepatically dosed. The patient also takes potassium supplementation. Recommendation is to recheck lab-BMP in 1 week to monitor her progress. 3. Patient has chronic renal disease. Renal function remained stable. No evidence of infection noted. Recommendations for the patient to recheck lab-BMP in 1 week. Recommendation is for the patient to follow up with nephrology as an outpatient to further monitor. Recommendation on no further use of nonsteroidal anti-inflammatories. Future medications will need to be renally dosed. 4. Patient has anemia and thrombocytopenia likely related to her chronic cirrhosis. Patient may continue with B12 supplementation. Recommendation is to recheck lab-CBC in 1 week to monitor progress. This can be further monitored by her PCP. 5. The patient has neuropathy. She will continue with her medication-Neurontin 600 mg 1 pill twice daily. The patient also takes tramadol as needed. She may need to limit tramadol medication if she is without pain. 6. Patient has insomnia. I will recommend to discontinue Lunesta as this may increase her fatigue. 7. Patient has Opioid induced constipation. Patient may continue with her medication- Relistor. 8. Patient has GERD. She will continue with Protonix 40 mg 1 pill once daily. Diet: AHA Activity: Fall precautions Time spent managing pt's care (in minutes): 55
[2018-03-18] MEDS ORDERED: SENOSIDES 8.6 MG TAB PO SCH (09:00)
[2018-03-18] MEDS ORDERED: GABAPENTIN 100 MG CAP PO SCH (09:00)
[2018-03-18] MEDS ORDERED: LACTULOSE 20 GM/30 ML UCUP PO SCH (09:00)
[2018-03-18] MEDS ORDERED: GABAPENTIN 300 MG CAP PO SCH ×2 (09:00)
[2018-03-18] MEDS ORDERED: FUROSEMIDE 40 MG TABLET PO SCH (09:00)
[2018-03-18] MEDS ORDERED: Rifaximin 550 MG Tab PO SCH (09:00)
[2018-03-18] MEDS ORDERED: PANTOPRAZOLE 40MG TABLET PO SCH (09:00)
[2018-03-18 13:07] VITALS: BP 108/53; TEMP 97.8
--- NOTE | 2018-03-18 18:06 | CON ---
Date of Consultation: 03/18/2018 I was consulted on the patient, but the patient got discharged before I could see the consult, theref ore cancelled the consult. LOVE/MICHELLE Voice ID: [id number] Report ID: [id number]
[2018-03-18] MEDS ORDERED: QUETIAPINE 100MG TAB PO SCH (21:00)
== END 2018-03-18 12:01 | disposition home or self-care (01) ==
LOC: ER 19:09 → INTOOBSV 23:07 → ERHOLD 23:07 → 2ND 03-18 00:39
PROVIDERS: ADMIT Internal Medicine; ATTEND Family Medicine
DX: E86.0 Dehydration (principal); K74.60 Unspecified cirrhosis of liver; D63.8 Anemia in other chronic diseases classified elsewhere; K59.03 Drug induced constipation; T40.2X5A Adverse effect of other opioids, initial encounter; N18.3 Chronic kidney disease, stage 3 (moderate); K50.00 Crohn's disease of small intestine without complications; D69.6 Thrombocytopenia, unspecified; G62.9 Polyneuropathy, unspecified; G47.00 Insomnia, unspecified; Z88.1 Allergy status to other antibiotic agents; Z91.041 Radiographic dye allergy status; Z88.8 Allergy status to other drugs, medicaments and biological substances; Z91.018 Allergy to other foods; F32.9 Major depressive disorder, single episode, unspecified; Z87.891 Personal history of nicotine dependence; F42.9 Obsessive-compulsive disorder, unspecified
CPT/HCPCS: 36415; 70450; 71045; 80048; 80076; 80307 ×8; 80320; 82140; 82550; 82553; 83690; 83735; 83880; 84145; 84484; 85025; 85610; 85730; 87086; 87088; 93005; 96361; 96374; 99285; C9113; G0378 ×2; J3475; J7030 ×2; 81003; 81015

== ENCOUNTER 2018-04-07 17:14 | Emergency (ER) | payer OTHER ==
--- OUTSIDE RECORDS SUMMARY | 2018-04-07 17:16 | XMS REPORT | Clinical Summary ---
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 DEPARTMENT OF PATHOLOGY AND GENOMIC MEDICINE Ketones, UA Negative Negative [facility] DEPARTMENT OF PATHOLOGY AND GENOMIC MEDICINE Bilirubin, UA Negative Negative [facility] DEPARTMENT OF PATHOLOGY AND GENOMIC MEDICINE Blood, UA Negative Negative [facility] DEPARTMENT OF PATHOLOGY AND GENOMIC MEDICINE Nitrite, UA Negative Negative [facility] DEPARTMENT OF PATHOLOGY AND GENOMIC MEDICINE Urobilinogen, UA 4.0 (A) <2.0 [facility] DEPARTMENT OF PATHOLOGY AND GENOMIC MEDICINE Leukocyte esterase, UA Negative Negative [facility] DEPARTMENT OF PATHOLOGY AND GENOMIC MEDICINE Epithelial cells, UA 10 /HPF [facility] DEPARTMENT OF PATHOLOGY AND GENOMIC MEDICINE Round epithelial cells, UA <1 0 - 1 /HPF [facility] DEPARTMENT OF PATHOLOGY AND GENOMIC MEDICINE WBC, UA 2 0 - 4 /HPF [facility] DEPARTMENT OF PATHOLOGY AND GENOMIC MEDICINE RBC, UA 1 0 - 2 /HPF [facility] DEPARTMENT OF PATHOLOGY AND GENOMIC MEDICINE Bacteria, UA Few None seen [facility] DEPARTMENT OF PATHOLOGY AND GENOMIC MEDICINE Yeast, UA None seen [facility] DEPARTMENT OF PATHOLOGY AND GENOMIC MEDICINE Yeast with pseudohyphae, UA None seen [facility] DEPARTMENT OF PATHOLOGY AND GENOMIC MEDICINE Hyaline casts, UA 1 /LPF [facility] DEPARTMENT OF PATHOLOGY AND GENOMIC MEDICINE Specimen Urine Performing Organization Address [facility] Centercopr Phone Number [facility] DEPARTMENT OF PATHOLOGY AND [address] [place] [address] GENOMIC MEDICINE XR Chest 1 Vw Portable (10/05/2017 11:39 PM) Narrative Performed At Examination:XR CHEST 1 VW PORTABLE [facility] Clinical History:decompensated cirrhosis Comparison: None. Technique: Single frontal view of the chest is obtained. Findings: The lungs are free of infiltrate. The heart size is normal. No pleural effusion is seen. Impression: No active cardiopulmonary disease identified. [facility]-[id number] Procedure Note Hm Interface, Radiology Results Incoming - 10/05/2017 11:44 PM [employer] PRO[employer] COORDINATOR Examination: XR CHEST 1 VW PORTABLE Clinical History: decompensated cirrhosis Comparison: None. Technique: Single frontal view of the chest is obtained. Findings: The lungs are free of infiltrate. The heart size is normal. No pleural effusion is seen. Impression: No active cardiopulmonary disease identified. [facility]-[id number] Performing Organization Address [facility] Phone Number [facility] [address] [place] [address] CT Abdomen Pelvis Wo Contrast (10/05/2017 11:01 [...] recurrent hernia. 4. Bilateral nonobstructing intrarenal calculi. [facility]-[id number] Procedure Note Hm Interface, Radiology Results Incoming - 10/05/2017 11:21 PM [employer] PROGRAM COORDINATOR Examination: CT ABDOMEN PELVIS WO CONTRAST Clinical [...] recurrent hernia. 4. Bilateral nonobstructing intrarenal calculi. [facility]-[id number] Performing Organization Address City/State/Zipcode Phone Number [facility] [address] [place] [address] CT Head Wo Contrast (10/05/2017 11:01 PM)Only [...] detailed above with no acute intracranial abnormality. [facility]-[id number] Procedure Note Interface, Radiology Results Incoming - 10/05/2017 11:13 PM [employer] PRO[employer] COORDINATOR EXAMINATION: CT HEAD WO CONTRAST CLINICAL HISTORY: [...] detailed above with no acute intracranial abnormality. [facility]-[id number] Performing Organization Address City/State/Zipcode Phone Number [facility] [address] [place] [address] Lipase level (10/05/2017 9:46 PM)Only the most recent of2 resultswithin the time period is included. Lipase 22 13 - 60 U/L [facility] DEPARTMENT OF PATHOLOGY AND GENOMIC MEDICINE Specimen Plasma specimen Performing Organization Address [facility]/Zipcode Phone Number [facility] DEPARTMENT OF PATHOLOGY AND [address] Ammonia level (10/05/2017 9:46 PM)Only the most recent of2 resultswithin the time period is included. Ammonia 77 (H) 11 - 51 umol/L [facility] DEPARTMENT OF PATHOLOGY AND GENOMIC MEDICINE Specimen Blood Performing Organization Address [facility] Centercode Phone Number [facility] DEPARTMENT OF PATHOLOGY AND [address] [place] [address] CT Renal Stone Protocol (05/10/2017 12:57 AM) Narrative Performed At CT RENAL STONE PROTOCOL [facility] CLINICAL INDICATION:abd paincirrhosis TECHNIQUE: Multidetector CT of [...] 4. Moderate fecal material throughout the colon. [facility]-[id number] Procedure Note [facility], Radiology Results Incoming - 05/10/2017 1:08 AM [...] 4. Moderate fecal material throughout the colon. [facility]-[id number] Performing Organization Address City/[facility]/Zipcode Phone Number [facility] [address] [place] [address] Lactic acid level (05/09/2017 9:02 PM) Lactic acid 3.3 (H) 0.5 - 2.2 mmol/L [facility] DEPARTMENT OF PATHOLOGY AND GENOMIC MEDICINE Specimen Plasma specimen Narrative Performed At 2X EXTRA GREEN [facility] DEPARTMENT OF PATHOLOGY AND GENOMIC 2X EXTRA LAV MEDICINE 1X EXTRA BLUE Performing Organization Address City/[facility]ercopr Phone Number [facility] DEPARTMENT OF PATHOLOGY AND [address] [place] [address] [facility] MEDICINE MRI Abdomen W Wo Contrast (04/30/2017 1:30 PM) Narrative Performed At EXAMINATION:MRI ABDOMEN W WO CONTRAST [facility] CLINICAL HISTORY:Z88.8 Allergy status to other drugsmedicaments [...] HCC. 2.Patent portal vein. Status post TIPS. [facility]-[id number] Procedure Note Interface, Radiology Results Incoming - [...] 2. Patent portal vein. Status post TIPS. [facility]-[id number] Performing Organization Address City/State/Zipcode Phone Number [facility] [address] [place] [address] after 04/06/2017 Insurance Payer Benefit Plan / Group Subscriber ID Type Phone Address MEDICARE MEDICARE PART A AND B xxxxxxxxxx Medicare [place], [place] MEDICAID MEDICAID xxxxxxxxx Medicaid Home: [address] [phone] [place] [id number] BELLA BARRON Transplant Self 1960 Home: [address] [phone] [place] [phone]
--- OUTSIDE RECORDS SUMMARY | 2018-04-07 17:17 | XMS REPORT ---
[...] Status Dosage System Date Date Gabapentin ND 12548106145 100 MG Orally Active 2 cap in Three times a AM 3 caps day PM Cyanocobalamin ND 88338152996 1000 MCG/ML Active INJECT 1 ML IN MUSCLE ONCE A MONTH Furosemide ND 69737872298 40 MG Orally Active 1 tablet Once a day Seroquel ND 07079673333 50 MG Orally Active 1 tablet Once a day Ultram ND 98108836449 50 MG Orally Active 1 tablet every 6 hrs as needed Folic Acid ND 33169559672 1 MG Orally Active 1 tablet Once a day Spironolactone ND 74962332169 25 MG Orally Active 1 tablet Once a day with food Zofran ODT ND 80377492420 4 MG Orally Active 1 tablet every 8 hrs on the tongue and allow to dissolve Pantoprazole ND 39413948947 40 MG Orally Active 1 tablet Sodium Once a day Xifaxan ND 75425625540 550 MG Orally Active 1 tablet Twice a day Results No Known Results Summary Purpose eClinicalWorks Submission
[2018-04-07] MEDS ORDERED: FENTANYL CITR 100 MCG/2 ML ONE (17:34)
[2018-04-07] MEDS ORDERED: ONDANSETRON 4 MG/2 ML VIAL ONE (17:43)
[2018-04-07] MEDS ORDERED: NA CHLORIDE 0.9% 1,000 ML ONE (17:44)
[2018-04-07 18:13] LABS: Absolute Lymphocytes (CBC) 0.7 K/uL (0.7-4.9); Absolute Monocytes 0.5 K/uL (0.1-1.3); Absolute Neutrophil 5.4 K/uL (1.8-8.0); Basophils % 0.3 % (0-1.3); Eosinophils % 1.7 % (0-4.4); Hematocrit 29.5 % (36.0-45.0); Lymphocytes % 10.1 % (15.3-44.8); MCH 29.8 pg (27.0-35.0); MCV 89.4 fL (80-100)
[2018-04-07 18:36] LABS: Albumin 2.8 g/dL (3.4-5.0); Bilirubin Direct 1.9 mg/dL (0-0.2); Bilirubin Total 2.8 mg/dL (0.2-1.0); Potassium 4.2 mmol/L (3.5-5.1); Protein, Total 6.3 g/dL (6.4-8.2)
[2018-04-07] MEDS ORDERED: METHYLPREDNISOLONE 125 MG INJ ONE (18:50)
[2018-04-07] MEDS ORDERED: DIPHENHYDRAMINE 50 MG/ML VIAL ONE (18:50)
[2018-04-07 19:55] LABS: Blood Morphology Comment NOT SEEN (NOT SEEN); Platelet Estimate DECR; Urine White Blood Cell Casts OK
[2018-04-07] MEDS ORDERED: MORPHINE 4 MG/ML SYR ONE (19:56)
--- NOTE | 2018-04-07 20:25 | RAD REPORT ---
EXAM DESCRIPTION: CT - Abdomen Pelvis W Contrast - 04/07/2018 7:42 pm CLINICAL HISTORY: Abdominal pain/right upper quadrant pain COMPARISON: none. TECHNIQUE: Computed axial tomography of the abdomen pelvis was obtained. Isovue-300 was administere d intravenously. Oral contrast was not requested which limits evaluation of bowel. All CT scans are performed using dose optimization technique as appropriate and may include automated exposure control or mA/KV adjustment according to patient size. FINDINGS: A cirrhotic liver is present. A TIPS procedure has been performed. The spleen measures 13. 7 centimeters. Gallstones are present. The gallbladder is mildly distended. The gallbladder wall does not appear thi ckened. The pancreas and adrenals are unremarkable. Left renal cyst is is noted. Small nonobstructing renal calculi are present. A 2 centimeter right ovarian cyst is noted with minimal free fluid. . There is no evidence of diverticulitis. A right hemicolectomy has been performed. A ventral hernia re pair is noted. IMPRESSION: Cholelithiasis with mild gallbladder distention. The gallbladder wall does not appear th ickened Small nonobstructing renal calculi Cirrhosis
--- NOTE | 2018-04-07 20:48 | EDPHYS ---
Physician Documentation [facility] Name: Bella Barron Age: 57 yrs Sex: Female : 1960 Arrival Date: 04/07/2018 Time: 17:16 Bed 17 Private MD: ED Physician James Rossi HPI: 04/07 17:23 This 57 yrs old Female presents to ER via EMS with complaints of Abdominal jr8 Pain. 17:23 The patient presents with abdominal pain. Onset: The symptoms/episode began/occurred jr8 acutely, today. The symptoms do not radiate. Associated signs and symptoms: none. The symptoms are described as stabbing, steady. Modifying factors: The symptoms are alleviated by nothing, the symptoms are aggravated by nothing. Severity of pain: At its worst the pain was moderate in the emergency department the pain is unchanged. The patient has not experienced similar symptoms in the past. The patient has not recently seen a physician. Historical: - Allergies: 17:21 Iodine; iw 17:21 Phenergan; iw 17:21 Rocephin; iw - Home Meds: 17:21 furosemide 40 mg Oral tab 1 tab once daily [Active]; lactulose 10 gram/15 mL Oral soln iw 30 mL twice a day [Active]; pantoprazole 40 mg Oral TbEC 1 tab once daily [Active]; quetiapine Oral 1 tab nightly [Active]; spironolactone 100 mg Oral tab 1 tab once daily [Active]; tramadol 50 mg Oral tab 1 tab as needed [Active]; Xifaxan 550 mg Oral tab 1 tab 2 times per day [Active]; - PMHx: 17:21 Cirrhosis; Crohn's; Depression; Liver disease; ocd; iw - Immunization history:: Adult Immunizations up to date. - Ebola Screening: : Patient negative for fever greater than or equal to 101.5 degrees Fahrenheit, and additional compatible Ebola Virus Disease symptoms Patient denies exposure to infectious person Patient denies travel to an Ebola-affected area in the 21 days before illness onset No symptoms or risks identified at this time. - Social history:: Smoking status: Patient uses tobacco products, denies chronic smoking, but will smoke occasionally. ROS: 17:23 Eyes: Negative for injury, pain, redness, and discharge, ENT: Negative for injury, jr8 pain, and discharge, Neck: Negative for injury, pain, and swelling, Cardiovascular: Negative for chest pain, palpitations, and edema, Respiratory: Negative for shortness of breath, cough, wheezing, and pleuritic chest pain, Back: Negative for injury and pain, MS/Extremity: Negative for injury and deformity, Skin: Negative for injury, rash, and discoloration, Neuro: Negative for headache, weakness, numbness, tingling, and seizure. 17:23 Abdomen/GI: Positive for abdominal pain, nausea, Negative for vomiting, diarrhea, constipation, abdominal cramps, abdominal distension, anorexia, dysphagia, hematemesis, black/tarry stool, rectal pain, rectal bleeding, bowel incontinence, flatulence. Exam: 17:23 ENT: Nares patent. No nasal discharge, no septal abnormalities noted. Tympanic jr8 membranes are normal and external auditory canals are clear. Oropharynx with no redness, swelling, or masses, exudates, or evidence of obstruction, uvula midline. Mucous membranes moist. Cardiovascular: Regular rate and rhythm with a normal S1 and S2. No gallops, murmurs, or rubs. Normal PMI, no JVD. No pulse deficits. Respiratory: Lungs have equal breath sounds bilaterally, clear to auscultation and percussion. No rales, rhonchi or wheezes noted. No increased work of breathing, no retractions or nasal flaring. Back: No spinal tenderness. No costovertebral tenderness. Full range of motion. Skin: Warm, dry with normal turgor. Normal color with no rashes, no lesions, and no evidence of cellulitis. MS/ Extremity: Pulses equal, no cyanosis. Neurovascular intact. Full, normal range of motion. Neuro: Awake and alert, GCS 15, oriented to person, place, time, and situation. Cranial nerves II-XII grossly intact. Motor strength 5/5 in all extremities. Sensory grossly intact. Cerebellar exam normal. Normal gait. 17:23 Abdomen/GI: Inspection: obese Bowel sounds: active, all quadrants, Palpation: soft, in the right upper quadrant and right mid abdomen , mass, is not appreciated, rebound tenderness, is not appreciated, voluntary guarding, is not appreciated, involuntary guarding, is not appreciated, no appreciated organomegaly, Indicators: McBurney's point is not tender, Mi's sign is negative, Rovsing's sign is negative. Vital Signs: 17:21 BP 113 / 48; Pulse 80; Resp 16 S; Temp 98.3; Pulse Ox 98% on R/A; Pain 10/10; iw 18:16 BP 97 / 67; Pulse 80; Resp 14; Pulse Ox 96% on R/A; Pain 10/10; ch 19:00 BP 109 / 63; Pulse 84; Resp 14; Pulse Ox 100% ; bp 20:00 BP 122 / 66; Pulse 92; Resp 14; Pulse Ox 98% ; bp MDM: 17:16 Patient medically screened. [facility] 20:27 Data reviewed: vital signs, nurses notes, lab test result(s), radiologic studies, CT jr8 scan, and as a result, I will discharge patient. Data interpreted: Pulse oximetry: on room air is 98 %. Interpretation: normal. Counseling: I had a detailed discussion with the patient and/or guardian regarding: the historical points, exam findings, and any diagnostic results supporting the discharge/admit diagnosis, lab results, radiology results, the need for outpatient follow up, a general surgeon, to return to the emergency department if symptoms worsen or persist or if there are any questions or concerns that arise at home. 20:49 ED course: Patient has chronically elevated Bilirubin from cirrhosis of the liver. CT jr8 and US confirm cholelithiasis without gallbladder wall thickening or CBD dilation. Will refer to surgeon for f/u. Patient currently comfortable and without pain . 04/07 17:22 Order name: Basic Metabolic Panel; Complete Time: 18:40 [facility] 04/07 17:22 Order name: CBC with Diff; Complete Time: 20:00 [facility] 04/07 17:22 Order name: Creatinine for Radiology; Complete Time: 18:36 8 04/07 17:22 Order name: Hepatic Function; Complete Time: 18:40 8 04/07 17:22 Order name: Lipase; Complete Time: 18:40 [facility] 04/07 18:29 Order name: CBC Smear Scan; Complete Time: 20:00 EDMS 04/07 18:36 Order name: CT Abd/Pelvis - W/Contrast; Complete Time: 20:26 [facility] 04/07 20:08 Order name: Urine Dipstick--Ancillary (enter results) rg2 04/07 20:29 Order name: US Abdomen Limited [facility] 04/07 17:22 Order name: IV Saline Lock; Complete Time: 18:13 jr8 04/07 17:22 Order name: Labs collected and sent; Complete Time: 18:14 8 04/07 17:22 Order name: Urine Dipstick-Ancillary (obtain specimen); Complete Time: 20:08 Administered Medications: 17:45 Drug: fentaNYL (PF) 50 mcg Route: IVP; Site: right wrist; ch 19:08 Follow up: Response: No adverse reaction; No change in condition 17:45 Drug: Zofran 4 mg Route: IVP; Site: right wrist; ch 19:08 Follow up: Response: No adverse reaction; No change in condition 17:45 Drug: NS 0.9% 1000 ml Route: IV; Rate: 1000 ml; Site: right wrist; ch 19:08 Follow up: IV Status: Completed infusion; IV Intake: 1000ml 18:45 Drug: SOLU-Medrol 125 mg Route: IVP; Site: right wrist; ch 19:08 Follow up: Response: No adverse reaction; No change in condition 18:45 Drug: Benadryl 25 mg Route: IVP; Site: right wrist; ch 19:08 Follow up: Response: No adverse reaction; No change in condition 19:45 Drug: morphine 4 mg Route: IVP; Site: right forearm; bp 20:08 Follow up: Response: Pain is decreased bp Disposition: 04/08 12:11 Co-signature as Attending Physician, James Rossi MD I agree with the assessment and david plan of care. Disposition: 04/07/18 20:47 Discharged to Home. Impression: Cholelithiasis. - Condition is Stable. - Discharge Instructions: Cholelithiasis. - Prescriptions for Zofran 4 mg Oral Tablet - take 1 tablet by ORAL route every 12 hours As needed; 20 tablet. - Medication Reconciliation Form, Thank You Letter, Antibiotic Education, Prescription Opioid Use form. - Follow up: Pete Uribe MD; When: 2 - 3 days; Reason: Recheck today's complaints, Continuance of care, Re-evaluation by your physician. - Problem is new. - Symptoms have improved. Signatures: Dispatcher [employer] EDAnnette Betancourt RN RN ch Anderson, Corey, MD MD cha Williams, Irene, RN RN iw Roszak, Josh, PA PA 8 Jessica, Mikhail, RN RN bp Corrections: (The following items were deleted from the chart) 04/07 21:09 20:47 04/07/2018 20:47 Discharged to Home. Impression: Cholelithiasis. Condition is bp Stable. Forms are Medication Reconciliation Form, Thank You Letter, Antibiotic Education, Prescription Opioid Use. Follow up: Pete Uribe; When: 2 - 3 days; Reason: Recheck today's complaints, Continuance of care, Re-evaluation by your physician. Problem is new. Symptoms have improved. jr8
--- NOTE | 2018-04-07 20:48 | ER ---
Nurse's Notes [facility] Name: Bella Barron Age: 57 yrs Sex: Female : 1960 Arrival Date: 04/07/2018 Time: 17:16 Bed 17 Private MD: Diagnosis: Cholelithiasis Presentation: 04/07 17:16 Presenting complaint: Patient states: c/o abd pain that started this morning, got worse iw over past hour, hx of non alcoholic fatty liver disease, no vomiting, no diarrhea, pain 10/10 to RUQ. Transition of care: patient was not received from another setting of care. Onset of symptoms was April 07, 2018. 17:16 Method Of Arrival: EMS: [facility] iw 17:16 Acuity: OLEG 3 iw 20:57 Risk Assessment: Do you want to hurt yourself or someone else? Patient reports no bp desire to harm self or others. Initial Sepsis Screen: Does the patient meet any 2 criteria? No. Patient's initial sepsis screen is negative. Does the patient have a suspected source of infection? No. Patient's initial sepsis screen is negative. Care prior to arrival: None. Historical: - Allergies: 17:21 Iodine; iw 17:21 Phenergan; iw 17:21 Rocephin; iw - Home Meds: 17:21 furosemide 40 mg Oral tab 1 tab once daily [Active]; lactulose 10 gram/15 mL Oral soln iw 30 mL twice a day [Active]; pantoprazole 40 mg Oral TbEC 1 tab once daily [Active]; quetiapine Oral 1 tab nightly [Active]; spironolactone 100 mg Oral tab 1 tab once daily [Active]; tramadol 50 mg Oral tab 1 tab as needed [Active]; Xifaxan 550 mg Oral tab 1 tab 2 times per day [Active]; - PMHx: 17:21 Cirrhosis; Crohn's; Depression; Liver disease; ocd; iw - Immunization history:: Adult Immunizations up to date. - Ebola Screening: : Patient negative for fever greater than or equal to 101.5 degrees Fahrenheit, and additional compatible Ebola Virus Disease symptoms Patient denies exposure to infectious person Patient denies travel to an Ebola-affected area in the 21 days before illness onset No symptoms or risks identified at this time. - Social history:: Smoking status: Patient uses tobacco products, denies chronic smoking, but will smoke occasionally. Screenin:16 Abuse screen: Denies threats or abuse. Denies injuries from another. Nutritional ch screening: No deficits noted. Tuberculosis screening: No symptoms or risk factors identified. Fall Risk None identified. Assessment: 17:40 General: Appears in no apparent distress. comfortable, Behavior is calm, cooperative, ch appropriate for age. Pain: Complains of pain in epigastric area, right upper quadrant and left upper quadrant Pain currently is 10 out of 10 on a pain scale. Pain began suddenly. 17:40 Neuro: No deficits noted. Respiratory: Airway is patent Respiratory effort is even, ch unlabored, Breath sounds are clear bilaterally. GI: Bowel sounds present X 4 quads. Abd is soft X 4 quads Abdomen is tender to palpation X 4 quads. Reports nausea. : No signs and/or symptoms were reported regarding the genitourinary system. Derm: Skin is jaundiced. Musculoskeletal: No signs and/or symptoms reported regarding the musculoskeletal system. 18:35 Reassessment: Patient appears in no apparent distress at this time. Patient and/or ch family updated on plan of care and expected duration. Pain level reassessed. Patient is alert, oriented x 3, equal unlabored respirations, skin warm/dry/pink. pt states she needs to have the CT so we can tell why she hurts. pt states she has chronic pain, and sees a pain specialist. Pt states she needs the CT, but had a CT last week that showed a large gall stone. I educate pt that too many CT scans are not good for the body, and especially if she is allergic to the dye in that it makes her stop breathing. pt then tells me that the IV dye doesn't make her stop breathing if she has the steroids and the benadryl before, and that she will need something to help her relax too because she gets so nervous about the CT scan. I educate pt on too much narcotic and sedative and muscle relaxants can cause a person to stop breathing. pt verb understanding but states she has been doing this for so many years that these meds wont touch her, she wouldn't stop breathing. pt then tells me again she needs something to help her relax before she goes to CT because CT makes her so nervous. I clarify with pt if she wants the CT. pt states she wants something stronger than fentanyl for pain, and the Benadryl, steroids, and some Valium to relax her. Pt then states to give her the medicines, she wants the CT so she can know what is wrong with her. Provider notified of pt request for sedatives, narcotics, and Benadryl, as well as muscle relaxants. pt medicated per orders. awaiting ct scan. 19:00 Reassessment: RECD REPORT FROM ANNETTE OLMOS. 57YO WF P/W RUQ PAIN. PT HAS KNOWN H/O bp GALLSTONES AND CIRRHOSIS, LAST CT [address] PENDING AT THIS TIME, VS STABLE. 19:22 Reassessment: PT TO CT WITH PLAN CONSULTANT. bp 20:00 Reassessment: PT RETURNED FROM CT. ALL CURRENT ORDERS COMPLETED, VS STABLE ON MONITOR. bp 20:35 Reassessment: PT TO U/S WITH PLAN CONSULTANT. bp 20:54 Reassessment: PT RETURNED FROM U/S. PROVIDER AT B/S, D/C PENDING. bp 20:55 Reassessment: PT D/C HOME VIA W/C WITH FAMILY, DX WITH CHOLELITHIASIS. bp Vital Signs: 17:21 BP 113 / 48; Pulse 80; Resp 16 S; Temp 98.3; Pulse Ox 98% on R/A; Pain 10/10; iw 18:16 BP 97 / 67; Pulse 80; Resp 14; Pulse Ox 96% on R/A; Pain 10/10; ch 19:00 BP 109 / 63; Pulse 84; Resp 14; Pulse Ox 100% ; bp 20:00 BP 122 / 66; Pulse 92; Resp 14; Pulse Ox 98% ; bp ED Course: 17:16 Patient arrived in ED. iw 17:16 Gurdeep Rowland PA is PHCP. jr8 17:16 James Rossi MD is Attending Physician. jr8 17:18 Triage completed. iw 17:21 Arm band placed on. iw 18:00 No apparent distress. Resting quietly. ch 18:00 No provider procedures requiring assistance completed. Inserted saline lock: 22 gauge ch in right forearm, using aseptic technique. Blood collected. 18:12 Annette Darnell, RN is Primary Nurse. ch 18:16 Patient has correct armband on for positive identification. Placed in gown. Bed in low ch position. Call light in reach. Side rails up X 1. Adult w/ patient. Pulse ox on. NIBP on. Warm blanket given. 18:59 Primary Nurse role handed off by Annette Darnell RN bp 18:59 Mikhail Lopez, AMARILIS is Primary Nurse. bp 19:42 CT Abd/Pelvis - W/Contrast In Process Unspecified. EDMS 20:47 US Abdomen Limited In Process Unspecified. EDMS 20:47 Pete Uribe MD is Referral Physician. jr8 20:56 IV discontinued, intact, bleeding controlled, No redness/swelling at site. Pressure bp dressing applied. Administered Medications: 17:45 Drug: fentaNYL (PF) 50 mcg Route: IVP; Site: right wrist; ch 19:08 Follow up: Response: No adverse reaction; No change in condition ch 17:45 Drug: Zofran 4 mg Route: IVP; Site: right wrist; ch 19:08 Follow up: Response: No adverse reaction; No change in condition ch 17:45 Drug: NS 0.9% 1000 ml Route: IV; Rate: 1000 ml; Site: right wrist; ch 19:08 Follow up: IV Status: Completed infusion; IV Intake: 1000ml ch 18:45 Drug: SOLU-Medrol 125 mg Route: IVP; Site: right wrist; ch 19:08 Follow up: Response: No adverse reaction; No change in condition ch 18:45 Drug: Benadryl 25 mg Route: IVP; Site: right wrist; ch 19:08 Follow up: Response: No adverse reaction; No change in condition ch 19:45 Drug: morphine 4 mg Route: IVP; Site: right forearm; bp 20:08 Follow up: Response: Pain is decreased bp Intake: 19:08 IV: 1000ml; Total: 1000ml. Outcome: 20:47 Discharge ordered by . jr8 20:56 Discharged to home via wheelchair, with family. bp 20:56 Condition: stable 20:56 Discharge instructions given to patient, Instructed on discharge instructions, follow up and referral plans. 20:56 Instructed on medication usage, Demonstrated understanding of instructions, follow-up bp care, medications, Prescriptions given X 1. 21:09 Patient left the ED. bp Signatures: Dispatcher [employer] EDID Annette Darnell RN RN [place] Fernandez RN RN Gurdeep Rowland PA PA jr8 Mikhail Lopez, RN RN bp
--- NOTE | 2018-04-07 20:57 | RAD REPORT ---
EXAM DESCRIPTION: US - Abdomen Exam Limited - 04/07/2018 8:47 pm CLINICAL HISTORY: Abdominal pain. COMPARISON: April 07, 2018 CT FINDINGS: The gallbladder is mildly distended. Several gallstones are present. The gallbladder wall is upper limits normal thickness. The biliary tree is normal caliber. IMPRESSION: Mild gallbladder distention with cholecystitis. Gallbladder wall is not thickened.
[2018-04-07 21:19] VITALS: TEMP 98.3
[2018-04-07 21:23] VITALS: BP 122/66; O2SAT 98
[2018-04-07 21:43] LABS: Urine Blood NEGATIVE (NEG); Urine Glucose NEGATIVE (NEG); Urine Protein NEGATIVE (NEG)
== END 2018-04-07 21:09 | disposition home or self-care (01) ==
LOC: ER 17:14
DX: K80.20 Calculus of gallbladder without cholecystitis without obstruction (principal); K74.60 Unspecified cirrhosis of liver; F32.9 Major depressive disorder, single episode, unspecified; K76.9 Liver disease, unspecified; Z88.3 Allergy status to other anti-infective agents; Z88.8 Allergy status to other drugs, medicaments and biological substances
CPT/HCPCS: 36415; 74177; 76705; 80048; 80076; 81003; 83690; 85025; J2405; J2930; J3010; J7030; Q9967; 99284

== ENCOUNTER 2018-05-03 22:47 | Observation (INO) | payer OTHER ==
[2018-05-03] MEDS ORDERED: NA CHLORIDE 0.9% 500 ML ONE (23:35)
[2018-05-03 23:59] LABS: Absolute Lymphocytes (CBC) 1.3 K/uL (0.7-4.9); Absolute Monocytes 0.5 K/uL (0.1-1.3); Absolute Neutrophil 4.3 K/uL (1.8-8.0); Basophils % 0.3 % (0-1.3); Eosinophils % 3.4 % (0-4.4); Hematocrit 31.3 % (36.0-45.0); Lymphocytes % 20.1 % (15.3-44.8); MCH 29.6 pg (27.0-35.0); MPV 8.8 fL (7.6-11.3); Monocytes % 7.6 % (3.3-12.3); RBC Red Blood Cell Count 3.56 M/uL (3.86-4.86)
[2018-05-04 00:12] LABS: Potassium 4.2 mmol/L (3.5-5.1)
[2018-05-04 00:46] LABS: Urine Bacteria <20 /HPF (<20); Urine Culture Reflex Order NOT NEEDED; Urine Mucus 3+ /HPF (NONE SEEN); Urine RBC NONE SEEN /HPF (NONE SEEN)
[2018-05-04 01:07] LABS: Urine Blood NEGATIVE (NEG); Urine Glucose NEGATIVE (NEG); Urine Protein NEGATIVE (NEG)
[2018-05-04] MEDS ORDERED: ONDANSETRON 4 MG/2 ML VIAL IV PRN (02:53)
--- NOTE | 2018-05-04 03:09 | EDPHYS ---
Physician Documentation [facility] Name: Bella Barron Age: 57 yrs Sex: Female : 1960 Arrival Date: 05/03/2018 Time: 22:49 Bed 15 Private MD: Sanjay Díazh ED Physician Beau Encarnacion HPI: 05/03 23:13 This 57 yrs old Female presents to ER via Ambulatory with complaints of rn CONFUSED. 23:13 The patient presents with confusion, decreased mental status, decreased responsiveness. rn Onset: The symptoms/episode began/occurred this morning, at an unknown time. Possible causes: unknown. Current symptoms: In the emergency department the patient's symptoms are unchanged from the initial presentation. The patient has experienced similar episodes in the past. Family reports increased confusion, sleeping all day long, maybe since this morning, not sure, no trauma, patient reports feels tired, reports compliant with lactulose. NO urinary symptoms. No chest pain/cough/sob/abd pain.. Historical: - Allergies: 23:03 Iodine; bp 23:03 Phenergan; bp 23:03 Rocephin; bp - Home Meds: 23:03 furosemide 40 mg Oral tab 1 tab once daily [Active]; lactulose 10 gram/15 mL Oral soln bp 30 mL twice a day [Active]; pantoprazole 40 mg Oral TbEC 1 tab once daily [Active]; quetiapine Oral 1 tab nightly [Active]; spironolactone 100 mg Oral tab 1 tab once daily [Active]; tramadol 50 mg Oral tab 1 tab as needed [Active]; Xifaxan 550 mg Oral tab 1 tab 2 times per day [Active]; - PMHx: 23:03 Cirrhosis; Crohn's; Depression; Liver disease; ocd; bp - Immunization history:: Adult Immunizations up to date. - Social history:: Smoking status: unknown. - Ebola Screening: : Patient negative for fever greater than or equal to 101.5 degrees Fahrenheit, and additional compatible Ebola Virus Disease symptoms Patient denies exposure to infectious person Patient denies travel to an Ebola-affected area in the 21 days before illness onset No symptoms or risks identified at this time. - Family history:: not pertinent. - Hospitalizations: : No recent hospitalization is reported. ROS: 23:13 Constitutional: Negative for fever, chills, and weight loss, Eyes: Negative for injury, rn pain, redness, and discharge, Neck: Negative for injury, pain, and swelling, Cardiovascular: Negative for chest pain, palpitations, and edema, Respiratory: Negative for shortness of breath, cough, wheezing, and pleuritic chest pain, Abdomen/GI: Negative for abdominal pain, nausea, vomiting, diarrhea, and constipation, MS/Extremity: Negative for injury and deformity, Skin: Negative for injury, rash, and discoloration, Neuro: + confusion, no headache/focal weakness/numbness Exam: 23:13 Constitutional: This is a well developed, well nourished patient who is somnolent but rn awake Head/Face: Normocephalic, atraumatic. Eyes: + scleral icterus ENT: dry MM, no stridor Cardiovascular: Regular rate and rhythm with a normal S1 and S2. No gallops, murmurs, or rubs. Normal PMI, no JVD. No pulse deficits. Respiratory: Lungs have equal breath sounds bilaterally, clear to auscultation and percussion. No rales, rhonchi or wheezes noted. No increased work of breathing, no retractions or nasal flaring. Abdomen/GI: soft, non-tender MS/ Extremity: Pulses equal, no cyanosis. Neurovascular intact. Full, normal range of motion. Equal circumference. Neuro: Awake, oriented to person and place, not time, tearful, 4/5 strength in all 4 extremities. sensation grossly intact. Vital Signs: 23:03 BP 143 / 78; Pulse 96; Resp 14; Temp 99.2; Pulse Ox 98% ; Weight 81.65 kg; bp 23:54 BP 141 / 72; Pulse 86; Resp 18; Pulse Ox 100% on R/A; bp 05/04 00:47 BP 117 / 69; Pulse 86; Resp 18; Pulse Ox 100% on R/A; tl2 02:22 BP 130 / 54; Pulse 88; Resp 18; Pulse Ox 98% on R/A; tl2 03:22 BP 133 / 58; Pulse 83; Resp 18; Pulse Ox 98% on R/A; tl2 NIH Stroke Scale Scores: 05/03 23:07 NIHSS Score: 2 bp MDM: 23:01 Patient medically screened. rn 05/04 03:07 Differential Diagnosis: electrolyte abnormality, alcohol intoxication, hypoglycemia, rn intracranial bleed, UTI, volume depletion. Data reviewed: vital signs, nurses notes, lab test result(s), EKG, radiologic studies, CT scan, and as a result, I will admit patient. Counseling: I had a detailed discussion with the patient and/or guardian regarding: the historical points, exam findings, and any diagnostic results supporting the discharge/admit diagnosis, lab results, radiology results, the need for further work-up and treatment in the hospital. Response to treatment: There is no appreciated change of the patient's symptoms at this time, and as a result, I will admit patient. Admission orders: after a detailed discussion of the patient's condition and case, the admit orders are written by me. ED course: Pt still confused, no clear etiology, will admit to Dr. Bethea for further eval. . 05/03 23:11 Order name: CBC with Diff; Complete Time: 00:40 rn 05/03 23:11 Order name: Basic Metabolic Panel; Complete Time: 00:40 rn 05/03 23:11 Order name: AMMONIA; Complete Time: 00:40 rn 05/03 23:11 Order name: Urine Culture rn 05/03 23:11 Order name: Urine Microscopic Only; Complete Time: 01:32 rn 05/03 23:11 Order name: Blood Culture Adult (2) rn 05/03 23:11 Order name: CT Head Brain wo Cont rn 05/03 23:11 Order name: Procalcitonin; Complete Time: 00:45 rn 05/03 23:11 Order name: Flu; Complete Time: 00:40 rn 05/03 23:15 Order name: ETOH Level; Complete Time: 00:40 rn 05/04 00:06 Order name: Urine Dipstick--Ancillary (enter results); Complete Time: 01:32 mw2 05/04 00:06 Order name: Urine --Ancillary (enter results); Complete Time: 01:32 2 05/04 02:57 Order name: Physical Therapy Consult EDMS 05/03 23:11 Order name: Urine Dipstick-Ancillary (obtain specimen); Complete Time: 23:55 rn 05/03 23:57 Order name: Straight Cath; Complete Time: 23:57 tl2 05/04 02:57 Order name: Heart Healthy EDHI Administered Medications: 09/22 23:55 Drug: NS 0.9% 500 ml Route: IV; Rate: bolus; Site: right wrist; bp 05/04 00:30 Follow up: IV Status: Completed infusion; IV Intake: 500ml tl2 Disposition: 05/04/18 03:08 Hospitalization ordered by Kimberly King for Observation. Preliminary diagnosis is Altered mental status, unspecified. - Bed requested for Telemetry/MedSurg (observation). - Status is Observation. tl2 - Condition is Stable. - Problem is new. - Symptoms are unchanged. UTI on Admission? No NIH Stroke Scale - NIH Stroke Score Date: 05/03/2018 Time: 23:07 Total Score = 2 1a. Level of Consciousness (LOC) - 1(Not Alert) 1b. Level of Consciousness (LOC) (Year \T\ Age) - 1(One) 1c. LOC Commands (Open \T\ Closes Eyes/Sales [employer]ment Lead) - 0(Both) 2. Best Gaze (Lateral Gaze Paresis) - 0(Normal) 3. Visual Field Loss - 0(No visual loss) 4. Facial Palsy - 0(Normal) 5a. Left Arm: Motor (10-second hold) - 0(No drift) 5b. Right Arm: Motor (10-second hold) - 0(No drift) 6a. Left Leg: Motor (5-second hold - always test supine) - 0(No drift) 6b. Right Leg: Motor (5-second hold - always test supine) - 0(No drift) 7. Limb Ataxia (finger/nose \T\ heel/macias - test with eyes open) - 0(Absent) 8. Sensory Loss (pinprick arms/legs/face) - 0(Normal) 9. Best Language: Aphasia (description/naming/reading) - 0(No aphasia) 10. Dysarthria (speech clarity - read or repeat words) - 0(Normal) 11. Extinction and Inattention (visual/tactile/auditory/spatial/personal) - 0(No abnormality) Initials: bp Signatures: Dispatcher [employer] Selma Leiva RN RN kl Nieto, Roman, MD MD rn Knox, Taylor, RN RN tl2 Mikhail Lopez RN RN bp Corrections: (The following items were deleted from the chart) 05/03 23:17 23:13 Constitutional: This is a well developed, well nourished patient who is rn somnolent but awake Head/Face: Normocephalic, atraumatic. Eyes: + scleral icterus ENT: dry MM, no stridor Cardiovascular: Regular rate and rhythm with a normal S1 and S2. No gallops, murmurs, or rubs. Normal PMI, no JVD. No pulse deficits. Respiratory: Lungs have equal breath sounds bilaterally, clear to auscultation and percussion. No rales, rhonchi or wheezes noted. No increased work of breathing, no retractions or nasal flaring. Abdomen/GI: soft, non-tender MS/ Extremity: Pulses equal, no cyanosis. Neurovascular intact. Full, normal range of motion. Equal circumference. Neuro: Awake, oriented to person and place, not time, tearful, 4/5 strength in all 4 extremities. rn 05/04 03:14 03:08 Hospitalization Ordered by Kimberly King MD for Observation. Preliminary kl diagnosis is Altered mental status, unspecified. Bed requested for Telemetry/MedSurg (observation). Status is Observation. Condition is Stable. Problem is new. Symptoms are unchanged. UTI on Admission? No. rn 03:14 03:14 05/04/2018 03:08 Hospitalization Ordered by Kimberly King MD for kl Observation. Preliminary diagnosis is Altered mental status, unspecified. Bed requested for Telemetry/MedSurg (observation). Status is Observation. Condition is Stable. Problem is new. Symptoms are unchanged. UTI on Admission? No. kl 03:56 03:14 05/04/2018 03:08 Hospitalization Ordered by Kimberly King MD for tl2 Observation. Preliminary diagnosis is Altered mental status, unspecified. Bed requested for Telemetry/MedSurg (observation). Status is Observation. Condition is Stable. Problem is new. Symptoms are unchanged. UTI on Admission? No. kl
--- NOTE | 2018-05-04 03:09 | ER ---
Nurse's Notes [facility] Name: Bella Barron Age: 57 yrs Sex: Female : 1960 Arrival Date: 05/03/2018 Time: 22:49 Bed 15 Private MD: Fernando Díaz Diagnosis: Altered mental status, unspecified Presentation: 05/03 23:01 Presenting complaint: states: CONFUSION. Transition of care: patient was not bp received from another setting of care. Onset of symptoms is unknown. Risk Assessment: Do you want to hurt yourself or someone else? Patient reports no desire to harm self or others. Initial Sepsis Screen: Does the patient meet any 2 criteria? No. Patient's initial sepsis screen is negative. Does the patient have a suspected source of infection? No. Patient's initial sepsis screen is negative. Care prior to arrival: None. 23:01 Method Of Arrival: Ambulatory bp 23:01 Acuity: OLEG 2 bp Triage Assessment: 23:03 General: Appears in no apparent distress. comfortable, Behavior is calm, cooperative, bp appropriate for age. Pain: Denies pain. EENT: ICTERIC SCLERA. Neuro: Level of Consciousness is awake, confused, lethargic, Oriented to person. Cardiovascular: No deficits noted. Respiratory: Airway is patent Respiratory effort is even, unlabored, Respiratory pattern is regular, symmetrical. GI: No signs and/or symptoms were reported involving the gastrointestinal system. : No signs and/or symptoms were reported regarding the genitourinary system. Derm: Skin is jaundiced. Musculoskeletal: Circulation, motion, and sensation intact. Range of motion: intact in all extremities. Historical: - Allergies: 23:03 Iodine; bp 23:03 Phenergan; bp 23:03 Rocephin; bp - Home Meds: 23:03 furosemide 40 mg Oral tab 1 tab once daily [Active]; lactulose 10 gram/15 mL Oral soln bp 30 mL twice a day [Active]; pantoprazole 40 mg Oral TbEC 1 tab once daily [Active]; quetiapine Oral 1 tab nightly [Active]; spironolactone 100 mg Oral tab 1 tab once daily [Active]; tramadol 50 mg Oral tab 1 tab as needed [Active]; Xifaxan 550 mg Oral tab 1 tab 2 times per day [Active]; - PMHx: 23:03 Cirrhosis; Crohn's; Depression; Liver disease; ocd; bp - Immunization history:: Adult Immunizations up to date. - Social history:: Smoking status: unknown. - Ebola Screening: : Patient negative for fever greater than or equal to 101.5 degrees Fahrenheit, and additional compatible Ebola Virus Disease symptoms Patient denies exposure to infectious person Patient denies travel to an Ebola-affected area in the 21 days before illness onset No symptoms or risks identified at this time. - Family history:: not pertinent. - Hospitalizations: : No recent hospitalization is reported. Screenin:07 Abuse screen: Denies threats or abuse. Denies injuries from another. Nutritional bp screening: No deficits noted. Tuberculosis screening: No symptoms or risk factors identified. Fall Risk No fall in past 12 months (0 pts). Secondary diagnosis (15 points) CIRRHOSIS. No IV (0 pts). Ambulatory Aid- Crutches/Cane/Walker (15 pts). Gait- Normal/Bed Rest/Wheelchair (0 pts) Mental Status- Overestimates/Forgets Limitations (15 pts.). Total Schaefer Fall Scale indicates High Risk Score (45 or more points). Assessment: 23:07 General: SEE TRIAGE NOTE. bp 05/04 00:30 Reassessment: Patient appears in no apparent distress at this time. Patient and/or tl2 family updated on plan of care and expected duration. Pain level reassessed. 01:30 Reassessment: Patient appears in no apparent distress at this time. Patient and/or tl2 family updated on plan of care and expected duration. Pain level reassessed. 02:23 Reassessment: Patient appears in no apparent distress at this time. Patient and/or tl2 family updated on plan of care and expected duration. Pain level reassessed. Awaiting dispo orders. 03:53 Reassessment: Patient appears in no apparent distress at this time. Patient and/or tl2 family updated on plan of care and expected duration. Pain level reassessed. Pt stable and ready for transport to floor. Vital Signs: 05/03 23:03 BP 143 / 78; Pulse 96; Resp 14; Temp 99.2; Pulse Ox 98% ; Weight 81.65 kg; bp 23:54 BP 141 / 72; Pulse 86; Resp 18; Pulse Ox 100% on R/A; bp 05/04 00:47 BP 117 / 69; Pulse 86; Resp 18; Pulse Ox 100% on R/A; tl2 02:22 BP 130 / 54; Pulse 88; Resp 18; Pulse Ox 98% on R/A; tl2 03:22 BP 133 / 58; Pulse 83; Resp 18; Pulse Ox 98% on R/A; tl2 NIH Stroke Scale Scores: 05/03 23:07 NIHSS Score: 2 bp ED Course: 22:49 Patient arrived in ED. es 22:50 Fernando Díaz DO is Private Physician. es 22:56 Ritika Fernandez, AMARILIS is Primary Nurse. tl2 23:01 Beau Encarnacion MD is Attending Physician. rn 23:01 Triage completed. bp 23:03 Arm band placed on. bp 23:09 Patient has correct armband on for positive identification. Bed in low position. Call bp light in reach. Side rails up X2. Adult w/ patient. 23:27 Flu Sent. tl2 23:32 Inserted saline lock: 22 gauge in right wrist, using aseptic technique. Blood collected.tl2 23:56 Straight cath inserted, using sterile technique, 16 Fr. Specimen obtained. Returned tl2 clear yellow urine. Patient tolerated well. 05/04 00:40 CT Head Brain wo Cont In Process Unspecified. EDMS 03:08 Kimberly King MD is Hospitalizing Provider. rn 03:53 No provider procedures requiring assistance completed. Patient admitted, IV remains in tl2 place. Administered Medications: 05/03 23:55 Drug: NS 0.9% 500 ml Route: IV; Rate: bolus; Site: right wrist; bp 05/04 00:30 Follow up: IV Status: Completed infusion; IV Intake: 500ml tl2 Intake: 00:30 IV: 500ml; Total: 500ml. tl2 Outcome: 03:08 Decision to Hospitalize by Provider. rn 03:53 Admitted to Med/surg accompanied by tech, family with patient, via stretcher, room 203, tl2 with chart, Report called to AMARILIS Fisher 03:53 Condition: stable 03:55 Discharge instructions given to patient, Instructed on the need for admit. tl2 03:56 Patient left the ED. tl2 NIH Stroke Scale - NIH Stroke Score Date: 05/03/2018 Time: 23:07 Total Score = 2 1a. Level of Consciousness (LOC) - 1(Not Alert) 1b. Level of Consciousness (LOC) (Year \T\ Age) - 1(One) 1c. LOC Commands (Open \T\ Closes Eyes/Sheet Folder) - 0(Both) 2. Best Gaze (Lateral Gaze Paresis) - 0(Normal) 3. Visual Field Loss - 0(No visual loss) 4. Facial Palsy - 0(Normal) 5a. Left Arm: Motor (10-second hold) - 0(No drift) 5b. Right Arm: Motor (10-second hold) - 0(No drift) 6a. Left Leg: Motor (5-second hold - always test supine) - 0(No drift) 6b. Right Leg: Motor (5-second hold - always test supine) - 0(No drift) 7. Limb Ataxia (finger/nose \T\ heel/macias - test with eyes open) - 0(Absent) 8. Sensory Loss (pinprick arms/legs/face) - 0(Normal) 9. Best Language: Aphasia (description/naming/reading) - 0(No aphasia) 10. Dysarthria (speech clarity - read or repeat words) - 0(Normal) 11. Extinction and Inattention (visual/tactile/auditory/spatial/personal) - 0(No abnormality) Initials: bp Signatures: Dispatcher [employer] EDShabana Taylor Roman, MD MD rn Knox, Taylor, RN RN tl2 Mikhail Lopze RN RN bp Corrections: (The following items were deleted from the chart) 05/03 23:57 23:55 Straight cath inserted, using sterile technique, 16 Fr. Specimen tl2 obtained. Returned clear yellow urine. Patient tolerated well. bp
--- NOTE | 2018-05-04 03:21 | P.HP ---
Certification for Inpatient Patient admitted to: Observation With expected LOS: <2 Midnights Practitioner: I am a practitioner with admitting privileges, knowledge of patient current condition, hospital course, and medical plan of care. Services: Services provided to patient in accordance with Admission requirements found in Title 42 Section 412.3 of the Code of Federal Regulations Patient History Date of Service: 05/04/18 Reason for admission: Acute encephalopathy History of Present Illness: Ms Barron is a 57-year-old woman with history of liver cirrhosis, with history of TIPS, Crohn disease, who was brought to ER with altered mental status. The patient has not know why she is in the hospital. She is confused oriented x2. Ammonia level is within normal limits. Lab work mostly unremarkable. CT of the head preliminary report showed no acute abnormality. No apparent history of fever or chills. The last time she was admitted to the hospital with similar presentation secondary to volume depletion. At this time, her vital signs are within normal limits. Allergies ceftriaxone [From Rocephin] Allergy (Verified 03/18/18 08:37) Anaphylaxis iodine Allergy (Verified 10/03/17 02:36) Anaphylaxis promethazine [From Phenergan] Allergy (Verified 03/18/18 08:37) Itching Fish Allergy (Uncoded 08/23/16 14:07) Rash Home medications list reviewed: Yes Home Medications: Furosemide 40 mg PO DAILY 08/22/16 Lactulose [Generlac] 30 ml PO TID 08/22/16 Rifaximin [Xifaxan] 550 mg PO BID 08/22/16 Potassium Bicarbonate/Cit AC [Potassium 25 Meq Tablet Eff] 25 meq PO DAILY #30 tablet.eff 08/24/16 Gabapentin [Neurontin*] 600 mg PO BID 04/25/17 Ondansetron [Ondansetron Odt] 1 tab PO Q8H PRN 04/25/17 Pantoprazole [Protonix Tab*] 40 mg PO DAILY 04/25/17 Quetiapine [Seroquel*] 100 mg PO BEDTIME 04/25/17 traMADol HCL [Ultram*] 100 mg PO BID PRN 04/25/17 Cyanocobalamin (Vitamin B-12) [Cyanocobalamin Injection] 10,000 mcg IM SEECOM Cyanocobalamin [Vitamin B-12*] 1,000 mg IM SEECOM 03/18/18 Methylnaltrexone Dyke [Relistor] 450 mg PO DAILY 03/18/18 Senosides [Senokot*] 2 tab PO DAILY 03/18/18 Spironolactone [Aldactone] 25 mg PO DAILY #30 tab 03/18/18 - Past Medical/Surgical History Diabetic: No -: Crohn's -: Liver disease -: Depression -: Cirrhosis -: OCD -: multiple abdominal surgery -: TIPS procedure - Family History Mother Notes: pt was adopted - Social History Smoking Status: Current every day smoker Counseled patient to stop smoking for: less than 10 minutes Alcohol use: No CD- Drugs: Yes Caffeine use: Yes Place of Residence: Home Review of Systems 10-point ROS is otherwise unremarkable Physical Examination - Physical Exam General: Alert, In no apparent distress, Oriented x2 HEENT: Atraumatic, PERRLA, Mucous membr. moist/pink, EOMI, Sclerae nonicteric Neck: Supple, 2+ carotid pulse no bruit, No LAD, Without JVD or thyroid abnormality Respiratory: Clear to auscultation bilaterally, Normal air movement Cardiovascular: Regular rate/rhythm, Normal S1 S2, Systolic murmur (3/6 in aortic area) Gastrointestinal: Normal bowel sounds, No tenderness Musculoskeletal: No tenderness Integumentary: No rashes Neurological: Normal speech, Normal strength at 5/5 x4 extr, Normal tone, Normal affect Lymphatics: No axilla or inguinal lymphadenopathy - Studies Laboratory Data (last 24 hrs) 05/03/18 23:40: Sodium 145, Potassium 4.2, BUN 18, Creatinine 1.20, Glucose 92 05/03/18 23:40: WBC 6.3, Hgb 10.5 L, Hct 31.3 L, Plt Count 100 L Microbiology Data (last 24 hrs): 05/03/18 23:10 Nasopharnyx Influenza Type A Antigen Screen - Final 05/03/18 23:10 Nasopharnyx Influenza Type B Antigen Screen - Final Assessment and Plan - Problems (Diagnosis) (1) Acute encephalopathy Onset Date: 03/18/18 Current Visit: No Status: Acute (2) Chronic renal disease Current Visit: No Status: Chronic Qualifiers: Chronic kidney disease stage: stage 3 (moderate) Qualified Code(s): N18.3 - Chronic kidney disease, stage 3 (moderate) - Plan The patient will be admitted to the hospital due to acute encephalopathy. Etiology is still unclear, ammonia level within normal limits, no clinical or laboratory signs consistent with infection. Will continue IV fluids, hold diuretic medication, consult PT for safety in ambulation evaluation. - Advance Directives Does patient have a Living Will: No Does patient have a Durable POA for Healthcare: Yes - Code Status/Comfort Care Code Status Assessed: Yes Code Status: Full Code
[2018-05-04] MEDS: NA CHLORIDE 0.9% 1,000 ML IV SCH ×2 (05:09→14:17)
[2018-05-04] MEDS ORDERED: Rifaximin 550 MG Tab PO SCH (09:00)
[2018-05-04] MEDS: LACTULOSE 20 GM/30 ML UCUP PO SCH ×3 (09:18→20:59)
[2018-05-04] MEDS: PANTOPRAZOLE 40MG TABLET PO SCH (09:18)
--- NOTE | 2018-05-04 10:28 | P.PN ---
Subjective Date of Service: 05/04/18 Chief Complaint: Acute encephalopathy And patient is weepy apparently she fell bleed urinary incontinence also has been sleeping for the past 2 days denies any weakness of her extremities no problems with her speech has fall before indications administered by her patient has a history of chronic liver disease and Crohn's and followed up by GI Review of Systems Unremarkable Physical Examination - Vital Signs Temperature: 97.5 F Blood Pressure: 141/80 Pulse: 85 Respirations: 18 Pulse Ox (%): 100 - Physical Exam General: Alert, Oriented x3 Neck: Supple Respiratory: Clear to auscultation bilaterally Cardiovascular: No edema, Normal S1 S2 Gastrointestinal: Normal bowel sounds, Soft and benign Neurological: Normal speech, Normal strength at 5/5 x4 extr - Studies Laboratory Data (last 24 hrs) 05/03/18 23:40: Sodium 145, Potassium 4.2, BUN 18, Creatinine 1.20, Glucose 92 05/03/18 23:40: WBC 6.3, Hgb 10.5 L, Hct 31.3 L, Plt Count 100 L Microbiology Data (last 24 hrs): 05/03/18 23:10 Nasopharnyx Influenza Type A Antigen Screen - Final 05/03/18 23:10 Nasopharnyx Influenza Type B Antigen Screen - Final Assessment & Plan - Problems (Diagnosis) (1) Fall Current Visit: Yes Status: Acute Plan: Patient is 51 years of age admitted with fall urinary incontinence altered mental status chronic liver disease ammonia is normal apart from mild anemia labs unremarkable head CT he appears to be depressed cultures pending continue monitoring possible discharge tomorrow urine drug screen Qualifiers: Encounter type: subsequent encounter Qualified Code(s): W19.XXXD - Unspecified fall, subsequent encounter Plan to discharge in: 24 Hours
--- NOTE | 2018-05-04 11:20 | RAD REPORT ---
EXAM DESCRIPTION: CT - Head Brain Wo Cont - 05/04/2018 7:07 am CLINICAL HISTORY: Transient alteration of awareness. The final report was delayed due to PACs and/or Fluency technical problems that existed at the time of the study or during expected/usual dictation time period. A preliminary report was provided at the time of the study and reviewed prior to final report. COMPARISON: CT head March 17 TECHNIQUE: Axial 5 mm thick images of the head were obtained without IV contrast. All CT scans are performed using dose optimization technique as appropriate and may include automated exposure control or mA/KV adjustment according to patient size. FINDINGS: No intracranial hemorrhage, mass, edema or shift of mid-line structures. No acute infarcti on changes seen. No abnormal extra-axial fluid collections. Ventricles are normal. Mastoid air cells and visualized portions of the paranasal sinuses are clear. No acute bony findings. No significant change from comparison. IMPRESSION: Negative non-contrast CT head examination for acute or significant finding.
[2018-05-04] MEDS: GABAPENTIN 300 MG CAP PO SCH (21:00)
[2018-05-05] MEDS: NA CHLORIDE 0.9% 1,000 ML IV SCH ×2 (02:30→09:53)
[2018-05-05 04:36] VITALS: BMI 37.1
[2018-05-05 04:45] LABS: Absolute Lymphocytes (CBC) 1.3 K/uL (0.7-4.9); Absolute Monocytes 0.6 K/uL (0.1-1.3); Absolute Neutrophil 2.8 K/uL (1.8-8.0); Basophils % 0.8 % (0-1.3); Eosinophils % 5.5 % (0-4.4); Lymphocytes % 26.2 % (15.3-44.8); MCH 29.9 pg (27.0-35.0); MCV 86.6 fL (80-100); MPV 8.2 fL (7.6-11.3); Monocytes % 11.5 % (3.3-12.3)
[2018-05-05 05:11] LABS: Magnesium 1.9 mg/dL (1.8-2.4); Potassium 3.7 mmol/L (3.5-5.1)
[2018-05-05 06:51] LABS: Blood Morphology Comment NOT SEEN (NOT SEEN); Platelet Estimate DECR; Urine White Blood Cell Casts OK
[2018-05-05] MEDS ORDERED: POTASSIUM 25 MEQ EFFERV TAB PO ONE (09:00)
[2018-05-05] MEDS: LACTULOSE 20 GM/30 ML UCUP PO SCH (09:00)
[2018-05-05 09:33] VITALS: BP 98/57; TEMP 97.6
[2018-05-05] MEDS: GABAPENTIN 300 MG CAP PO SCH (09:45)
[2018-05-05] MEDS: PANTOPRAZOLE 40MG TABLET PO SCH (09:53)
--- OUTSIDE RECORDS SUMMARY | 2018-05-05 12:06 | XMS REPORT | Clinical Summary ---
:1960 Author Organization [facility] Address [address] [place] [address] Care Team Providers Name Role Phone Leon [...] by mouth 3 (three) times a day. polyethylene glycol Take 17 g by 30 [...] 18 by mouth once for 1 dose. LORAZepam (ATIVAN) 1 MG Take 1 tablet 1 tablet 0 04/23/2018 04/23/20 tablet (1 mg total) 18 by mouth once for 1 dose. Take 1 tab by mouth 0730 04/24/18 prior to MRI Active Problems Problem Noted Date Acute hepatic encephalopathy 10/05/2017 Hematochezia 12/11/2016 Melena 12/11/2016 Overview: Added automatically from request for surgery [id number] Bipolar disorder, unspecified 10/09/2016 Persistent depressive disorder 10/09/2016 Alcoholic cirrhosis of liver 09/12/2016 Hepatic encephalopathy 06/26/2016 S/P TIPS (transjugular intrahepatic portosystemic shunt) 05/08/2016 Thrombocytopenia 05/04/2016 Cirrhosis of liver not due to alcohol 05/04/2016 Malnutrition 05/04/2016 Encounters Date Type Specialty Care Team Description 05/05/2018 Telephone Transplant Dahlia Fernandez, Sick call RN 04/28/2018 Telephone Transplant Dahlia Fernandez, MELD score updated to RN 10 04/25/2018 Hospital Encounter Radiology Calos Garcia (nonalcoholic steatohepatitis); MD Ping Awaiting liver transplant; Cancer screening; Lesion of liver 04/25/2018 Hospital Encounter Radiology Calos Garcia (nonalcoholic steatohepatitis); MD Ping Awaiting liver transplant; Cancer screening; Lesion of liver 04/25/2018 Hospital Encounter Procedural Ebony Roper (nonalcoholic steatohepatitis); Cardiology MD Meek Awaiting liver transplant; Cancer screening; Lesion of liver 04/25/2018 Hospital Encounter Transplant Calos Garcia (nonalcoholic steatohepatitis); MD Ping Awaiting liver transplant; Cancer screening; Lesion of liver 04/23/2018 Refill Transplant Dahlia Fernandez, Med Refill RN 04/21/2018 Telephone Transplant Dahlia Fernandez, RN 04/18/2018 Telephone Transplant Dahlia Fernandez, Returning call RN 04/08/2018 Procedure Pass Radiology 04/08/2018 Telephone Transplant Telma Medrano, Weight gain MA 04/08/2018 Telephone Transplant Dahlia Fernandez, Radiology conference RN f/u 03/26/2018 Hospital Encounter Radiology Calos Garcia Awaiting liver transplant; MD Ping Alcoholic cirrhosis of liver with ascites; Cancer screening; S/P TIPS (transjugular intrahepatic portosystemic shunt) 03/26/2018 Hospital Encounter Transplant Calos Garcia S/P TIPS ( transjugular intrahepatic portosystemic shunt); MD Ping Alcoholic cirrhosis of liver with ascites; Awaiting liver transplant; Cancer screening 03/26/2018 Telephone Transplant Padmini Soares LAB Order MBENNETT 03/26/2018 Orders Only Transplant Dahlia Fernandez, AMARILIS 03/26/2018 Telephone Transplant Padmini Soares Medication M, [place] 03/20/2018 Telephone Transplant Dahlia Fernandez, Lab results request RN 03/19/2018 Telephone Transplant Talon, Returning Call BENNETT Eaton 03/17/2018 Refill Transplant Dahlia Fernandez, Med Refill RN 03/17/2018 Orders Only Transplant Dahlia Fernandez, Awaiting liver transplant (Primary Dx); RN Alcoholic cirrhosis of liver with ascites; Cancer screening; S/P TIPS (transjugular intrahepatic portosystemic shunt) 03/17/2018 Orders Only Transplant Dahlia Fernandez S/P TIPS (transjugular intrahepatic portosystemic shunt) (Primary Dx); RN Alcoholic cirrhosis of liver with ascites; Awaiting liver transplant; Cancer screening 03/14/2018 Telephone Transplant Padmini Soares Homehealth M, BENNETT 03/14/2018 Telephone Transplant Dahlia Fernandez, Dehydration RN [...] RN 11/22/2017 Hospital Encounter Transplant Calos Garcia MCFARLANE (nonalcoholic steatohepatitis); MD Ping Awaiting liver transplant 11/21/2017 Orders Only Transplant Dahlia Fernandez, DENYS (nonalcoholic steatohepatitis) (Primary Dx); RN Awaiting liver transplant 11/21/2017 Telephone Transplant Dahlia Fernandez, landen RN 11/21/2017 Telephone Transplant Talon, Speak to Coordinator BENNETT Eaton 10/25/2017 Telephone Transplant Dahlia Fernandez, returning call RN 10/18/2017 [facility] 10[facility] Telephone Transplant Renae Chadwick MA Med Inquiries 10/16/2017 Telephone Transplant Gene Díaz MA Returning Call 10/16/2017 Telephone Transplant Marita Gomez, TXP [facility] 10/15/2017 Telephone Transplant Dahlia Fernandez, f/u appt RN 10/11/2017 Documentation Transplant Dahlia Fernandez, MELD score updated to RN 12;recert due 01/04/18 10/05/2017 Hospital Encounter General Internal Jayarama, Hepatic - Medicine Alexis, DO encephalopathy 10/07/2017 Maximo, (Primary Dx) Elia Sheets MD 10/03/2017 Telephone Transplant Dahlia Fernandez, Inpatient in [place] AMARILIS lee 09/20/2017 Telephone Transplant Padmini Soares [...] due 08/16/18 08/06/2017 Telephone Transplant Dahlia Fernandez, Damiony duty RN 07/25/2017 Telephone Transplant Padmini Soares RX Request BENNETT Reynolds 07/24/2017 Telephone Transplant Gene Díaz MA Sick Call 07/19/2017 Telephone Transplant Gene Díaz MA PTINR 07/18/2017 Telephone Transplant Padmini Soares PT/INR M, BENNETT 07/11/2017 Telephone Transplant Padmini Soares Weight Gain M, BENNETT 07/08/2017 Telephone Transplant Renae Chadwick MA Med Clarification 06/27/2017 Telephone Transplant Talon, Sick Call; returning BENNETT Eaton call 06/24/2017 Refill Transplant Dahlia Fernandez, Med Refill RN 06/05/2017 Telephone Transplant Talon, Lab Orders BENNETT Eaton 05/27/2017 Telephone Transplant Dahlia Fernandez, MELD score updated to RN 14;recert due 08/27/16 05/24/2017 Telephone Transplant Padmini Soares Lab Recollect M, BENNETT Question 05/17/2017 Telephone Transplant Dahlia Fernandez, f/u RN 05/13/2017 Telephone Transplant Bonny Zambrano, Return Call RN 05/13/2017 Telephone Transplant Telma Medrano, Pt at the ER CO 05/09/2017 Emergency Emergency Nasir Cordero Acute nonintractable headache, unspecified headache type (Primary Dx); - Medicine DO Pedro Generalized abdominal pain; 05/10/2017 Constipation, unspecified constipation type; Hyperammonemia 05/09/2017 Telephone Transplant Padmini Soares Sick Call Rodolfo, BENNETT after 05/04/2017 Immunizations Name Dates Previously Given Next Due FLUCELVAX QUAD PF (0.5mL syringe) 05/08/2016 Influenza (IM) Preservative Free 04/21/2018 Pneumococcal Conjugate 13-Valent 05/08/2016 Family History Patient [...] Vital Sign Reading Time Taken Blood Pressure 140/61 04/25/2018 9:38 AM CDT Pulse 88 04/25/2018 9:38 AM CDT Temperature 36.6 C (97.8 F) 10/07/2017 3:41 PM SOA INTEGRATION DEVELOPER Respiratory Rate 20 04/25/2018 9:38 AM CDT Oxygen Saturation 96% 10/07/2017 3:41 PM SOA INTEGRATION DEVELOPER Inhaled Oxygen Concentration - - Weight 80.7 [...] SCREENING 10/08/2019 10/08/2016 Implants Implanted Type Area Simulation Engineer Device Expiration Model / Identifier Date Serial / Lot Stent Endprths Viatorr Tips 8cm 10mm - [id number] Surgical N/A: N/A W L GORE 02/06/2019 [id number] / Implanted: 05/04/2016 (Quantity not on file) Stents [id number] / [id number] Procedures Procedure Name Priority Date/Time Associated Diagnosis Comments CT CHEST WO CONTRAST Routine 04/25/2018 11:36 MCFARLANE (nonalcoholic Results for this AM CDT steatohepatitis) procedure are in Awaiting liver the results transplant section. Cancer screening Lesion of liver MRI ABDOMEN W WO Routine 04/25/2018 10:32 MCFARLANE (nonalcoholic Results for this CONTRAST AM CDT steatohepatitis) procedure are in Awaiting liver the results transplant section. Cancer screening Lesion of liver ECHOCARDIOGRAM 2D Routine 04/25/2018 9:00 MCFARLANE (nonalcoholic Results for this COMPLETE W MMODE AM CDT steatohepatitis) procedure are in SPECTRAL COLOR DOPPLER Awaiting liver the results (99269) transplant section. Cancer screening Lesion of liver ESTIMATED GFR Routine 04/25/2018 7:47 Results for this AM CDT procedure are in the results section. ALPHA FETOPROTEIN Routine 04/25/2018 7:47 MCFARLANE (nonalcoholic Results for this AM CDT steatohepatitis) procedure are in Awaiting liver the results transplant section. Cancer screening Lesion of liver HC COMPLETE BLD COUNT Routine 04/25/2018 7:47 MCFARLANE (nonalcoholic Results for this W/AUTO DIFF AM CDT steatohepatitis) procedure are in Awaiting liver the results transplant section. Cancer screening Lesion of liver PARTIAL THROMBOPLASTIN Routine 04/25/2018 7:47 MCFARLANE (nonalcoholic Results for this TIME (PTT) AM CDT steatohepatitis) procedure are in Awaiting liver the results transplant section. Cancer screening Lesion of liver PROTHROMBIN TIME WITH Routine 04/25/2018 7:47 MCFARLANE (nonalcoholic Results for this INR AM CDT steatohepatitis) procedure are in Awaiting liver the results transplant section. Cancer screening Lesion of liver HEPATIC FUNCTION PANEL Routine 04/25/2018 7:47 MCFARLANE (nonalcoholic Results for this AM CDT steatohepatitis) procedure are in Awaiting liver the results transplant section. Cancer screening Lesion of liver BASIC METABOLIC PANEL Routine 04/25/2018 7:47 MCFARLANE (nonalcoholic Results for this AM CDT steatohepatitis) procedure are in Awaiting liver the results transplant section. Cancer screening Lesion of liver TRANSFUSE RED BLOOD Routine 04/16/2018 5:[address] ABDOMEN W WO Routine 03/26/2018 3:25 Awaiting liver Results for this CONTRAST PM CDT transplant procedure are in Alcoholic cirrhosis the results of liver with ascites section. Cancer screening S/P TIPS (transjugular intrahepatic portosystemic shunt) ZZESTIMATED GFR Routine 03/26/2018 12:50 Results for this [...] with ascites Awaiting liver transplant Cancer screening ZZESTIMATED GFR Routine 11/22/2017 2:23 Results for this [...] in Awaiting liver the results transplant section. ZZESTIMATED GFR Routine 10/07/2017 4:00 Results for this AM SOA INTEGRATION DEVELOPER procedure are in the results section. PROTHROMBIN TIME WITH Routine 10/07/2017 4:00 Results for this INR AM SOA INTEGRATION DEVELOPER procedure are in the results section. COMPREHENSIVE Routine 10/07/2017 4:00 Results for this METABOLIC PANEL AM SOA INTEGRATION DEVELOPER procedure are in the results section. HC COMPLETE BLD COUNT Routine 10/07/2017 4:00 Results for this W/AUTO DIFF AM SOA INTEGRATION DEVELOPER procedure are in the results section. POC GLUCOSE Routine 10/06/2017 9:12 Results for this PM SOA INTEGRATION DEVELOPER procedure are in the results section. POC GLUCOSE Routine 10/06/2017 8:18 Results for this AM SOA INTEGRATION DEVELOPER procedure are in the results section. URINE CULTURE Routine 10/06/2017 7:58 Results for this AM SOA INTEGRATION DEVELOPER procedure are in the results section. URINALYSIS SCREEN AND Routine 10/06/2017 7:06 Results for this MICROSCOPY, WITH AM SOA INTEGRATION DEVELOPER procedure are in REFLEX TO CULTURE the results section. ZZESTIMATED GFR Routine 10/06/2017 5:45 Results for this AM SOA INTEGRATION DEVELOPER procedure are in the results section. PROTHROMBIN TIME WITH Routine 10/06/2017 5:45 Results for this INR AM SOA INTEGRATION DEVELOPER procedure are in the results section. COMPREHENSIVE Routine 10/06/2017 5:45 Results for this METABOLIC PANEL AM SOA INTEGRATION DEVELOPER procedure are in the results section. HC COMPLETE BLD COUNT Routine 10/06/2017 5:45 Results for this W/AUTO DIFF AM SOA INTEGRATION DEVELOPER procedure are in the results section. XR CHEST 1 VW PORTABLE STAT 10/05/2017 11:39 Results for this PM SOA INTEGRATION DEVELOPER procedure are in the results section. CT ABDOMEN PELVIS WO STAT 10/05/2017 11:01 Results for this CONTRAST PM SOA INTEGRATION DEVELOPER procedure are in the results section. CT HEAD WO CONTRAST STAT 10/05/2017 11:01 Results for this PM SOA INTEGRATION DEVELOPER procedure are in the results section. AMMONIA LEVEL STAT 10/05/2017 9:46 Results for this PM SOA INTEGRATION DEVELOPER procedure are in the results section. ZZESTIMATED GFR STAT 10/05/2017 9:46 Results for this PM SOA INTEGRATION DEVELOPER procedure are in the results section. LIPASE LEVEL STAT 10/05/2017 9:46 Results for this PM SOA INTEGRATION DEVELOPER procedure are in the results section. COMPREHENSIVE STAT 10/05/2017 9:46 Results for this METABOLIC PANEL PM SOA INTEGRATION DEVELOPER procedure are in the results section. PARTIAL THROMBOPLASTIN STAT 10/05/2017 9:46 Results for this TIME (PTT) PM SOA INTEGRATION DEVELOPER procedure are in the results section. PROTHROMBIN TIME WITH STAT 10/05/2017 9:46 Results for this INR PM SOA INTEGRATION DEVELOPER procedure are in the results section. HC COMPLETE BLD COUNT STAT 10/05/2017 9:46 Results for this W/AUTO DIFF PM SOA INTEGRATION DEVELOPER procedure are in the results section. CT RENAL STONE STAT 05/10/2017 12:57 Results for this PROTOCOL AM CDT procedure are in the results section. CT HEAD WO CONTRAST STAT 05/10/2017 12:56 Results for this AM CDT procedure are in the results section. ZZESTIMATED GFR Routine 05/09/2017 9:02 Results for this [...] procedure are in the results section. after 05/04/[address] Chest Wo Contrast (04/25/2018 11:36 AM) Narrative Performed At EXAMINATION: [facility] CT CHEST WO CONTRAST CLINICAL HISTORY: K75.81 Nonalcoholic steatohepatitis (MCFARLANE), Z76.82 Awaiting organ transplant status, Metastatic workup TECHNIQUE:Multiple axial images of the chest were obtained without intravenous contrast. The lack of intravenous contrast reduces the sensitivity of detecting solid organ disease and evaluating vasculature. Sagittal and coronal computerized reformatted images were also obtained. Scan was performed using radiation dose reduction techniques. COMPARISON: None FINDINGS: No pulmonary consolidation or suspicious nodule. Lung parenchymal detail is compromised by motion artifact. Minimal air trapping is suggested. Airways are patent. No pleural or significant pericardial effusion. Aorta is nondilated. Please see MRI for abdominal findings. IMPRESSION: No evidence of metastatic disease. [facility]-[id number] Procedure Note Interface, Radiology Results Incoming - 04/25/2018 11:46 AM CDT EXAMINATION: CT CHEST WO CONTRAST CLINICAL HISTORY: K75.81 Nonalcoholic steatohepatitis (MCFARLANE), Z76.82 Awaiting organ transplant status, Metastatic workup TECHNIQUE: Multiple axial images of the chest were obtained without intravenous contrast. The lack of intravenous contrast reduces the sensitivity of detecting solid organ disease and evaluating vasculature. Sagittal and coronal computerized reformatted images were also obtained. Scan was performed using radiation dose reduction techniques. COMPARISON: None FINDINGS: No pulmonary consolidation or suspicious nodule. Lung parenchymal detail is compromised by motion artifact. Minimal air trapping is suggested. Airways are patent. No pleural or significant pericardial effusion. Aorta is nondilated. Please see MRI for abdominal findings. IMPRESSION: No evidence of metastatic disease. [facility]-[id number] Performing Organization Address City/[facility]/Zipcode Phone Number [facility] [address] [place] [address] MRI Abdomen W Wo Contrast (04/25/2018 10:32 AM) Narrative Performed At EXAMINATION:[facility]BDOM[facility] CLINICAL HISTORY:K75.81 Nonalcoholic steatohepatitis (MCFARLANE), Z76.82 Awaiting organ transplant status, HCC Screen COMPARISON:April 30, 2017 TECHNIQUE: Multiplanar, multisequence MRI of the abdomen with and without intravenous gadolinium. FINDINGS: The liver cirrhotic. Mild fatty infiltration is also suggested. No focal hepatic mass. Status post TIPS. Portal vein is patent. There are small esophageal varices. Mild splenomegaly. No ascites. Cholelithiasis. No biliary dilatation. Unremarkable pancreas. Stable 5.4 cm left renal cyst. A few subcentimeter cysts are also seen bilaterally. No lymphadenopathy. Ventral mesh in place. IMPRESSION: Stable exam. No evidence of HCC. [facility]-[id number] Procedure Note Interface, Radiology Results Incoming - 04/25/2018 11:07 AM CDT EXAMINATION: MRI ABDOMEN W WO CONTRAST CLINICAL HISTORY: K75.81 Nonalcoholic steatohepatitis (MCFARLANE), Z76.82 Awaiting organ transplant status, HCC Screen COMPARISON: April 30, 2017 TECHNIQUE: Multiplanar, multisequence MRI of the abdomen with and without intravenous gadolinium. FINDINGS: The liver cirrhotic. Mild fatty infiltration is also suggested. No focal hepatic mass. Status post TIPS. Portal vein is patent. There are small esophageal varices. Mild splenomegaly. No ascites. Cholelithiasis. No biliary dilatation. Unremarkable pancreas. Stable 5.4 cm left renal cyst. A few subcentimeter cysts are also seen bilaterally. No lymphadenopathy. Ventral mesh in place. IMPRESSION: Stable exam. No evidence of HCC. [facility]-[id number] Performing Organization Address [facility]/Zipcode Phone Number [facility] [address] [place] [address] Echocardiogram complete w contrast and 3D if needed (04/25/2018 9:00 AM) Narrative Performed At [facility] Echocardiography Report [address] [address], [place] [address] Pat.Name:Rita BARRON.ID:[id number] .Date: 04/25/2018 Refer.MD:EBONY ROPER MD Exam Time: 8:18:00 AMStudy Type:Routine Echo Height:59inWeight: 178lb BSA: 1.76 m2 DOBAge:1960,57Y Sex: FEMALEBP:140/61 HR:85 bpm Sonogrphr: Janelle Mills RDCS, RVT Pat. Stat.:OutpatientRoom:[facility] Study Status:Final Echo Event ID:[id number] Order ID:[id number] Reason for Study:Liver Transplant Evaluation, Cancer Screening History / Clinical:Edema, Cirrhosis Procedures:2D Echo, Colorflow Doppler, Strain, Intravenous Saline Contrast Race:C SUMMARY: LV EF is hyperdynamic. Average global longitudinal strain is normal at -19.8%; Estimated EF is >70%. RV systolic function is normal. LV filling pressure is normal. FINDINGS: LV: LV size is normal. LV EF is hyperdynamic. Overall wall motionis hyperdynamic. Estimated EF is >70%. Average globallongitudinal strain is normal at -19.8%; RV: RV size is normal. RV systolic function is normal. LA: LA volume is mildly enlarged. RA: RA size is normal. AO: Aortic root diameter is normal. GERA: No pericardial effusion. Cntrst: Delayed contrast appears in the left atrium after 7-8 cardiaccycles consistent with transpulmonary shunting. AV: Aortic valve not well seen. MV: Mild mitral annular calcification. Mild mitral regurgitation. PV: Pulmonic valve not well seen. TV: No structural TV abnormalities noted. A trace of tricuspid regurgitation Ruano: LV relaxation is reduced, appropriate for age. LV filling pressureis normal. Other:Insufficient TR jet to estimate PA systolic pressure. MEASUREMENTS: 2D Parasternal Long Purmela LVOT 1.7 cmLA Ds4 cm LVIDd4.1 cmIndex2.3 cm/m Ao An1.7 cm LVIDs2.1 cmAo Rtd 2.6 cm Index1.5 cm/m LV%fs 48.8 % LV Eeqg221.1 g(87-129) IVSd 1 cmLVM Index 75.1 g/m2 LVPWd1 cmRWT0.5 LA Sng Plane LA Area 22.7 cm2(8.8-23.4) LA Vol67.2 ml Index38.2 ml/m LA LngAx 6.2 cm RA Sng Plane RA Area 14.2 cm2(8.3-19.5) RA Vol36.2 ml Index20.6 ml/m RA LngAx 4.8 cm DOPPLER LVOT Stroke Vol LVOT 1.7 cmLVOT CO6.7 l/min LVOT TVI34.9 cmLVOT CI3.8 l/m/m2 LVOT Tm359 cwtzYN45 bpm LVOT SV 79.3 ml Signed 04/28/2018 06:22 PM Maria De Jesus Metcalf MD Procedure Note Interface, Radiology Results In - 04/28/2018 6:22 PM CDT Echocardiography Report [address] [place] [address] Pat.Name: BELLA BARRON.ID: [id number] .Date: 04/25/2018 Refer.MD: EBONY ROPER MD Exam Time: 8:18:00 AM Study Type:Routine Echo Height: 59in Weight: 178lb BSA: 1.76 m2 Age: 12 1960,57Y Sex: FEMALE BP: 140/61 HR: 85 bpm Sonogrphr: Janelle Mills RDCS, RVT Pat. Stat.:Outpatient Room: [facility] 26 Study Status:Final Echo Event ID:[id number] Order ID: [id number] Reason for Study:Liver Transplant Evaluation, Cancer Screening History / Clinical:Edema, Cirrhosis Procedures:2D Echo, Colorflow Doppler, Strain, Intravenous Saline Contrast Race: C SUMMARY: LV EF is hyperdynamic. Average global longitudinal strain is normal at -19.8%; Estimated EF is >70%. RV systolic function is normal. LV filling pressure is normal. FINDINGS: LV: LV size is normal. LV EF is hyperdynamic. Overall wall motion is hyperdynamic. Estimated EF is >70%. Average global longitudinal strain is normal at -19.8%; RV: RV size is normal. RV systolic function is normal. LA: LA volume is mildly enlarged. RA: RA size is normal. AO: Aortic root diameter is normal. GERA: No pericardial effusion. Cntrst: Delayed contrast appears in the left atrium after 7-8 cardiac cycles consistent with transpulmonary shunting. AV: Aortic valve not well seen. MV: Mild mitral annular calcification. Mild mitral regurgitation. PV: Pulmonic valve not well seen. TV: No structural TV abnormalities noted. A trace of tricuspid regurgitation Ruano: LV relaxation is reduced, appropriate for age. LV filling pressure is normal. Other: Insufficient TR jet to estimate PA systolic pressure. MEASUREMENTS: 2D Parasternal Long Purmela LVOT 1.7 cm LA Ds 4 cm LVIDd 4.1 cm Index 2.3 cm/m Ao An 1.7 cm LVIDs 2.1 cm Ao Rtd 2.6 cm Index 1.5 cm/m LV%fs 48.8 % LV Mass 132.1 g (87-129) IVSd 1 cm LVM Index 75.1 g/m2 LVPWd 1 cm RWT 0.5 LA Sng Plane LA Area 22.7 cm2 (8.8-23.4) LA Vol 67.2 ml Index 38.2 ml/m LA LngAx 6.2 cm RA Sng Plane RA Area 14.2 cm2 (8.3-19.5) RA Vol 36.2 ml Index 20.6 ml/m RA LngAx 4.8 cm DOPPLER LVOT Stroke Vol LVOT 1.7 cm LVOT CO 6.7 l/min LVOT TVI 34.9 cm LVOT CI 3.8 l/m/m2 LVOT Tm 359 msec HR 84 bpm LVOT SV 79.3 ml Signed 04/28/2018 06:22 PM Maria De Jesus Metcalf MD Performing Organization Address [facility] Phone Number [facility] [address] [place] [address] Estimated GFR (04/25/2018 7:47 AM) Estimated GFR 60 mL/min/1.73 m2 [facility] DEPARTMENT OF Comment: PATHOLOGY AND GENOMIC CatergoryUnitsInterpretation MEDICINE G1 >=90 Normal or high G2 60-89Mildly decreased [id number] to moderately decreased U1f10-93Lmtcqtxlfp to severely decreased G4 15-29Severely decreased G5 <15Kidney failure The eGFR was calculated using the Chronic Kidney Disease Epidemiology Collaboration (CKD-EPI) equation. Interpretation is based on recommendations of the National Kidney Foundation-Kidney Disease Outcomes Quality Initiative (NKF-KDOQI) published in 2014. Specimen Plasma specimen Performing Organization Address [facility] Centercode Phone Number [facility] DEPARTMENT OF PATHOLOGY AND [address] [place] [address] GENOMIC MEDICINE Alpha fetoprotein (04/25/2018 7:47 AM)Only the most recent of2 resultswithin the time period is included. Alpha fetoprotein 3.4 0.0 - 8.3 ng/mL [facility] DEPARTMENT OF Comment: PATHOLOGY AND [facility] The Delilah 8000 AFP immunoassay was used. MEDICINE Results obtained with different assay methods or kits should not be used interchangeably and may be different. Specimen Serum Performing Organization Address City/[facility] Phone Number [facility] DEPARTMENT OF PATHOLOGY AND [address] [place] [address] Partial thromboplastin time, activated (04/25/2018 7:47 AM)Only the most recent of5 resultswithin the time period is included. PTT 31.8 23.0 - 36.0 sec [facility] DEPARTMENT OF PATHOLOGY Comment: AND [facility] MEDICINE PTT therapeutic range for unfractionated heparin is 61.0-112.0 seconds which corresponds to Anti-Xa 0.3-0.7 U/ml. Specimen Blood Performing Organization Address [facility] Phone Number [facility] DEPARTMENT OF PATHOLOGY AND [address] [place] [address] Prothrombin time with INR (04/25/2018 7:47 AM)Only the most recent of7 resultswithin the time period is included. Prothrombin time 15.9 (H) 12.0 - 15.0 sec [facility] DEPARTMENT OF PATHOLOGY AND [employer] MEDICINE INR 1.2 [facility] DEPARTMENT OF Comment: PATHOLOGY AND [employer] The International Normalized Ratio (INR) is a therapeutic MEDICINE monitoring tool for patients who are stable on oral anticoagulant therapy. An INR of 2.0-3.0 is suggested for deep vein thrombosis/pulmonary embolism. Specimen Blood Performing Organization Address [facility] Phone Number [facility] DEPARTMENT OF PATHOLOGY AND [address] [place] [address] CBC with platelet and differential (04/25/2018 7:47 AM)Only the most recent of7 resultswithin the time period is included. WBC 6.84 4.50 - 11.00 k/uL [facility] DEPARTMENT OF PATHOLOGY AND GENOMIC MEDICINE RBC 3.41 (L) 4.20 - 5.50 m/uL [facility] DEPARTMENT OF PATHOLOGY AND GENOMIC MEDICINE HGB 10.3 (L) 12.0 - 16.0 g/dL [facility] DEPARTMENT OF PATHOLOGY AND GENOMIC MEDICINE HCT 31.4 (L) 37.0 - 47.0 % [facility] DEPARTMENT OF PATHOLOGY AND GENOMIC MEDICINE MCV 92.1 82.0 - 100.0 fL [facility] DEPARTMENT OF PATHOLOGY AND GENOMIC MEDICINE MCH 30.2 27.0 - 34.0 pg [facility] DEPARTMENT OF PATHOLOGY AND GENOMIC MEDICINE MCHC 32.8 31.0 - 37.0 g/dL [facility] DEPARTMENT OF PATHOLOGY AND GENOMIC MEDICINE RDW - SD 50.4 37.0 - 55.0 fL [facility] DEPARTMENT OF PATHOLOGY AND GENOMIC MEDICINE MPV 10.9 8.8 - 13.2 fL [facility] DEPARTMENT OF PATHOLOGY AND GENOMIC MEDICINE Platelet count 84 (L) 150 - 400 k/uL [facility] DEPARTMENT OF PATHOLOGY AND GENOMIC MEDICINE Nucleated RBC 0.00 /100 WBC [facility] DEPARTMENT OF PATHOLOGY AND GENOMIC MEDICINE Neutrophils 55.0 39.0 - 69.0 % [facility] DEPARTMENT OF PATHOLOGY AND GENOMIC MEDICINE Lymphocytes 25.4 25.0 - 45.0 % [facility] DEPARTMENT OF PATHOLOGY AND GENOMIC MEDICINE Monocytes 12.4 (H) 0.0 - 10.0 % [facility] DEPARTMENT OF PATHOLOGY AND GENOMIC MEDICINE Eosinophils 5.6 (H) 0.0 - 5.0 % [facility] DEPARTMENT OF PATHOLOGY AND GENOMIC MEDICINE Basophils 1.0 0.0 - 1.0 % [facility] DEPARTMENT OF PATHOLOGY AND GENOMIC MEDICINE Immature granulocytes 0.6Comment: 0.0 - 1.0 % [facility] DEPARTMENT OF "Immature PATHOLOGY AND GENOMIC granulocytes" MEDICINE (promyelocytes, myelocytes, metamyelocytes) Specimen Blood Performing Organization Address City/State/[facility] Phone Number [facility] DEPARTMENT OF PATHOLOGY AND [address] [place] [address] GENOMIC MEDICINE Hepatic function panel (04/25/2018 7:47 AM)Only the most recent of3 resultswithin the time period is included. Albumin 3.2 (L) 3.5 - 5.0 g/dL [facility] DEPARTMENT OF PATHOLOGY AND GENOMIC MEDICINE Total bilirubin 1.4 (H) 0.0 - 1.2 mg/dL [facility] DEPARTMENT OF PATHOLOGY AND GENOMIC MEDICINE Bilirubin direct 0.5 (H) 0.0 - 0.3 mg/dL [facility] DEPARTMENT OF PATHOLOGY AND GENOMIC MEDICINE Alkaline phosphatase 74 35 - 104 U/L [facility] DEPARTMENT OF PATHOLOGY AND GENOMIC MEDICINE Protein 7.0 6.3 - 8.3 g/dL [facility] DEPARTMENT OF Comment: PATHOLOGY AND GENOMIC 4.6-7.0 g/dL MEDICINE 1 week 4.4-7.6 g/dL 7 months-1year5.1-7.3 g/dL 1-2 years5.6-7.5 g/dL >3 years6.0-8.0 g/dL 18-150 6.3-8.3 g/dL ALT 13 5 - 50 U/L [facility] DEPARTMENT OF PATHOLOGY AND GENOMIC MEDICINE AST 25 10 - 35 U/L [facility] DEPARTMENT OF PATHOLOGY AND GENOMIC MEDICINE Specimen Plasma specimen Performing Organization Address City/[facility] Phone Number [facility] PATHOLOGY AND [address] [place] [address] [employer] [facility] Basic metabolic panel (04/25/2018 7:47 AM)Only the most recent of3 resultswithin the time period is included. Sodium 140 135 - 148 mEq/L [facility] DEPARTMENT OF PATHOLOGY AND GENOMIC MEDICINE Potassium 4.2 3.5 - 5.0 mEq/L [facility] DEPARTMENT OF PATHOLOGY AND GENOMIC MEDICINE Chloride 104 98 - 112 mEq/L [facility] DEPARTMENT OF PATHOLOGY AND GENOMIC MEDICINE CO2 21 (L) 24 - 31 mEq/L [facility] DEPARTMENT OF PATHOLOGY AND GENOMIC MEDICINE Anion gap 15@ANIO 7 - 15 mEq/L [facility] DEPARTMENT OF PATHOLOGY AND GENOMIC MEDICINE BUN 15 6 - 20 mg/dL [facility] DEPARTMENT OF PATHOLOGY AND GENOMIC MEDICINE Creatinine 1.03 (H) 0.50 - 0.90 mg/dL [facility] DEPARTMENT OF PATHOLOGY AND GENOMIC MEDICINE Glucose 104 (H) 65 - 99 mg/dL [facility] DEPARTMENT OF PATHOLOGY AND GENOMIC MEDICINE Calcium 8.8 8.3 - 10.2 mg/dL [facility] DEPARTMENT OF PATHOLOGY AND GENOMIC MEDICINE Specimen Plasma specimen Performing Organization Address City/[facility] Phone Number [facility] PATHOLOGY AND [address] [place] [address] [facility] Transfuse RBC, 1 Units (04/16/2018 5:25 PM)Only the most recent of2 resultswithin the time period is included.CT Abdomen W Wo Contrast (03/26/2018 3:25 PM) Narrative Performed At EXAMINATION:CT ABDOMEN W WO CONTRAST [facility] CLINICAL HISTORY:Z76.82 Awaiting organ transplant status, [...] dome. Further characterization with MRI is recommended. [facility]-[id number] Procedure Note [facility], Radiology Results - 03/26/2018 3:53 PM CDT EXAMINATION: CT [...] dome. Further characterization with MRI is recommended. [facility]-[id number] Performing Organization Address [facility] Phone Number [facility] [address] [place] [address] Estimated GFR (03/26/2018 12:50 PM)Only the most recent of6 resultswithin the time period is included. GFR Non Af Amer 46 (A) mL/min/1.73 m2 [facility] DEPARTMENT OF PATHOLOGY AND GENOMIC MEDICINE GFR Af Amer 56 (A) mL/min/1.73 m2 [facility] DEPARTMENT OF Comment: PATHOLOGY AND GENOMIC [...] Americans. Specimen Plasma specimen Performing Organization Address City/[facility] Phone Number [facility] DEPARTMENT OF PATHOLOGY AND [address] [place] [address] [employer] MEDICINE Comprehensive metabolic panel (10/07/2017 4:00 AM)Only the most recent of4 resultswithin the time period is included. Sodium 143 135 - 148 mEq/L [facility] DEPARTMENT OF PATHOLOGY AND GENOMIC MEDICINE Potassium 3.7 3.5 - 5.0 mEq/L [facility] DEPARTMENT OF PATHOLOGY AND GENOMIC MEDICINE Chloride 107 98 - 112 mEq/L [facility] DEPARTMENT OF PATHOLOGY AND GENOMIC MEDICINE CO2 22 (L) 24 - 31 mEq/L [facility] DEPARTMENT OF PATHOLOGY AND GENOMIC MEDICINE Anion gap 14 7 - 15 mEq/L [facility] DEPARTMENT OF Comment: PATHOLOGY AND GENOMIC Starting from November , anion gap calculation MEDICINE no longer incorporates potassium. Please note the change. BUN 14 6 - 20 mg/dL [facility] DEPARTMENT OF PATHOLOGY AND GENOMIC MEDICINE Creatinine 1.1 (H) 0.5 - 0.9 mg/dL [facility] DEPARTMENT OF PATHOLOGY AND GENOMIC MEDICINE Glucose 91 65 - 99 mg/dL [facility] DEPARTMENT OF PATHOLOGY AND GENOMIC MEDICINE Calcium 9.3 8.3 - 10.2 mg/dL [facility] DEPARTMENT OF PATHOLOGY AND GENOMIC MEDICINE Protein 6.4 6.3 - 8.3 g/dL [facility] DEPARTMENT OF Comment: PATHOLOGY AND GENOMIC 4.6-7.0 g/dL MEDICINE 1 week 4.4-7.6 g/dL 7 months-1year5.1-7.3 g/dL 1-2 years5.6-7.5 g/dL >3 years6.0-8.0 g/dL 18-150 6.3-8.3 g/dL Albumin 3.1 (L) 3.5 - 5.0 g/dL [facility] DEPARTMENT OF PATHOLOGY AND GENOMIC MEDICINE A/G ratio 0.9 0.7 - 3.8 [facility] DEPARTMENT OF PATHOLOGY AND GENOMIC MEDICINE Alkaline phosphatase 53 35 - 104 U/L [facility] DEPARTMENT OF PATHOLOGY AND GENOMIC MEDICINE AST 21 10 - 35 U/L [facility] DEPARTMENT OF PATHOLOGY AND GENOMIC MEDICINE ALT <5 (A) 5 - 50 U/L [facility] DEPARTMENT OF PATHOLOGY AND GENOMIC MEDICINE Total bilirubin 1.0 0.0 - 1.2 mg/dL [facility] DEPARTMENT OF PATHOLOGY AND GENOMIC MEDICINE Specimen Plasma specimen Performing Organization Address City/[facility] Phone Number [facility] DEPARTMENT OF PATHOLOGY AND [address] [place] [address] POC glucose (10/06/2017 9:12 PM)Only the most recent of2 resultswithin the time period is included. POC glucose 95 65 - 99 mg/dL [facility] DEPARTMENT OF PATHOLOGY Comment: AND GENOMIC MEDICINE [facility] Notified RN Meter ID: [id number] Rn Patient Services: Pardeep Benedict Performing Organization Address City/[facility]/Zipcode Phone Number [facility] DEPARTMENT OF PATHOLOGY AND [address] [place], [place] [id number] [facility] Urine culture (10/06/2017 7:58 AM) Urine culture SEE COMMENTComment: Bacteriuria [facility] DEPARTMENT OF PATHOLOGY screen negative. AND GENOMIC MEDICINE Performing Organization Address City/[facility] Phone Number [facility] DEPARTMENT OF PATHOLOGY AND [address] [place] [address] GENOMIC MEDICINE Urinalysis screen and microscopy, with reflex to culture (10/06/2017 7:06 AM) Specimen site Clean catch [facility] DEPARTMENT OF PATHOLOGY AND GENOMIC MEDICINE Color, UA Cortney [facility] DEPARTMENT OF PATHOLOGY AND GENOMIC MEDICINE Appearance, UA Hazy [facility] DEPARTMENT OF PATHOLOGY AND GENOMIC MEDICINE Specific gravity, UA 1.021 1.001 - 1.035 [facility] DEPARTMENT OF PATHOLOGY AND GENOMIC MEDICINE pH, UA 5.0 5.0 - 8.5 [facility] DEPARTMENT OF PATHOLOGY AND GENOMIC MEDICINE Protein, UA Negative Negative [facility] DEPARTMENT OF PATHOLOGY AND GENOMIC MEDICINE Glucose, UA Negative Negative [facility] DEPARTMENT OF PATHOLOGY AND GENOMIC MEDICINE Ketones, UA Negative Negative [facility] DEPARTMENT OF PATHOLOGY AND GENOMIC MEDICINE Bilirubin, UA Negative Negative [facility] DEPARTMENT OF PATHOLOGY AND GENOMIC MEDICINE Blood, UA Negative Negative [facility] DEPARTMENT OF PATHOLOGY AND GENOMIC MEDICINE Nitrite, UA Negative Negative [facility] DEPARTMENT OF PATHOLOGY AND GENOMIC MEDICINE Urobilinogen, UA 4.0 (A) <2.0 [facility] DEPARTMENT OF PATHOLOGY AND GENOMIC MEDICINE Leukocyte esterase, UA Negative Negative [facility] DEPARTMENT OF PATHOLOGY AND GENOMIC MEDICINE Epithelial cells, UA 10 /HPF [facility] DEPARTMENT OF PATHOLOGY AND GENOMIC MEDICINE Round epithelial cells, UA <1 0 - 1 /HPF [facility] DEPARTMENT OF PATHOLOGY AND GENOMIC MEDICINE WBC, UA 2 0 - 4 /HPF [facility] DEPARTMENT OF PATHOLOGY AND GENOMIC MEDICINE RBC, UA 1 0 - 2 /HPF [facility] DEPARTMENT OF PATHOLOGY AND GENOMIC MEDICINE Bacteria, UA Few None seen [facility] DEPARTMENT OF PATHOLOGY AND GENOMIC MEDICINE Yeast, UA None seen [facility] DEPARTMENT OF PATHOLOGY AND GENOMIC MEDICINE Yeast with pseudohyphae, UA None seen [facility] DEPARTMENT OF PATHOLOGY AND GENOMIC MEDICINE Hyaline casts, UA 1 /LPF [facility] DEPARTMENT OF PATHOLOGY AND GENOMIC MEDICINE Specimen Urine Performing Organization Address City/State/[facility] Phone Number [facility] DEPARTMENT OF PATHOLOGY AND [address] [place] [address] [employer] MEDICINE XR Chest 1 Vw Portable (10/05/2017 11:39 PM) Narrative Performed At Examination:XR CHEST 1 VW PORTABLE [facility] Clinical History:decompensated cirrhosis Comparison: None. Technique: Single frontal view of the chest is obtained. Findings: The lungs are free of infiltrate. The heart size is normal. No pleural effusion is seen. Impression: No active cardiopulmonary disease identified. [facility]-[id number] Procedure Note Hm Interface, Radiology Results Incoming - 10/05/2017 11:44 PM [employer] Examination: XR CHEST 1 VW PORTABLE Clinical History: decompensated cirrhosis Comparison: None. Technique: Single frontal view of the chest is obtained. Findings: The lungs are free of infiltrate. The heart size is normal. No pleural effusion is seen. Impression: No active cardiopulmonary disease identified. [facility]-[id number] Performing Organization Address City/State/Zipcode Phone Number [facility] [address] [place] [address] CT Abdomen Pelvis Wo Contrast (10/05/2017 11:01 PM) Narrative Performed At Examination:CT ABDOMEN PELVIS WO CONTR[facility] Clinical History: abdominal pain Comparison: 05/10/2017 Findings: [...] recurrent hernia. 4. Bilateral nonobstructing intrarenal calculi. [facility]-[id number] Procedure Note Interface, Radiology Results Incoming - 10/05/2017 11:21 PM [employer] Examination: CT ABDOMEN PELVIS WO CONTRAST Clinical [...] recurrent hernia. 4. Bilateral nonobstructing intrarenal calculi. [facility]-[id number] Performing Organization Address City/State/Zipcode Phone Number [facility] [address] [place] [address] CT Head Wo Contrast (10/05/2017 11:01 PM)Only the most recent of2 resultswithin the time period is included. Narrative Performed At EXAMINATION: CT HEAD WO CONTRAST [facility] CLINICAL HISTORY: ams COMPARISON:05/10/[address] TECHNIQUE: [...] detailed above with no acute intracranial abnormality. [facility]-[id number] Procedure Note Hm Interface, Radiology Results Incoming - 10/05/2017 11:13 PM [employer] EXAMINATION: CT HEAD WO CONTRAST CLINICAL HISTORY: [...] detailed above with no acute intracranial abnormality. [facility]-[id number] Performing Organization Address [facility] Phone Number [facility] [address] [place] [address] Lipase level (10/05/2017 9:46 PM)Only the most recent of2 resultswithin the time period is included. Lipase 22 13 - 60 U/L [facility] DEPARTMENT OF PATHOLOGY AND GENOMIC MEDICINE Specimen Plasma specimen Performing Organization Address [facility] Phone Number [facility] DEPARTMENT OF PATHOLOGY AND [address] [place] [address] [facility] Ammonia level (10/05/2017 9:46 PM)Only the most recent of2 resultswithin the time period is included. Ammonia 77 (H) 11 - 51 umol/L [facility] DEPARTMENT OF PATHOLOGY AND GENOMIC MEDICINE Specimen Blood Performing Organization Address [facility] Phone Number [facility] DEPARTMENT OF PATHOLOGY AND [address] [place] [address] [facility] CT Renal Stone Protocol (05/10/2017 12:57 AM) Narrative Performed At CT RENAL STONE PROTOCOL [facility] CLINICAL INDICATION:abd paincirrhosis TECHNIQUE: Multidetector CT [...] 4. Moderate fecal material throughout the colon. [facility]-[id number] Procedure Note Interface, Radiology Results Incoming - [...] 4. Moderate fecal material throughout the colon. [facility]-[id number] Performing Organization Address City/State/Zipcode Phone Number [facility] [address] [place] [address] Lactic acid level (05/09/2017 9:02 PM) Lactic acid 3.3 (H) 0.5 - 2.2 mmol/L [facility] DEPARTMENT OF PATHOLOGY AND GENOMIC MEDICINE Specimen Plasma specimen Narrative Performed At 2X EXTRA GREEN [facility] DEPARTMENT OF PATHOLOGY AND GENOMIC 2X EXTRA LAV MEDICINE 1X EXTRA BLUE Performing Organization Address City/State/Zipcode Phone Number [facility] DEPARTMENT OF PATHOLOGY AND [address] [place] [address] GENOMIC MEDICINE after 05/04/2017 Insurance Payer Benefit Plan / Group Subscriber ID Type Phone Address MEDICARE MEDICARE PART A AND B xxxxxxxxxx Medicare [place], [place] MEDICAID MEDICAID xxxxxxxxx Medicaid Home: [address] [phone] [place] [phone] BELLA BARRON Transplant Self 1960 Home: [address] [phone] [place] [phone]
--- OUTSIDE RECORDS SUMMARY | 2018-05-05 12:06 | XMS REPORT ---
:1960 Author Organization [employer] Care Team Providers Name Role Phone Arjun Fernando Provider Role Unavailable Allergies No Known Allergies [...] Start End Status Dosage System Date Date Cyanocobalamin [facility] 40037525539 1000 MCG/ML Active INJECT 1 Intramuscular ML IN once monthly MUSCLE ONCE A MONTH Results No Known Results Summary Purpose [employer]Works Submission
--- OUTSIDE RECORDS SUMMARY | 2018-05-05 12:06 | XMS REPORT ---
[...] Status Dosage System Date Date Gabapentin ND 94509776489 100 MG Orally Active 2 cap in Three times a AM 3 caps day PM Cyanocobalamin ND 20160961807 1000 MCG/ML Active INJECT 1 ML IN MUSCLE ONCE A MONTH Furosemide ND 73377726258 40 MG Orally Active 1 tablet Once a day Seroquel ND 47522792098 50 MG Orally Active 1 tablet Once a day Ultram ND 72326882380 50 MG Orally Active 1 tablet every 6 hrs as needed Folic Acid ND 38962248768 1 MG Orally Active 1 tablet Once a day Spironolactone ND 61954707004 25 MG Orally Active 1 tablet Once a day with food Zofran ODT ND 11008743615 4 MG Orally Active 1 tablet every 8 hrs on the tongue and allow to dissolve Pantoprazole ND 66004040737 40 MG Orally Active 1 tablet Sodium Once a day Xifaxan ND 17150985076 550 MG Orally Active 1 tablet Twice a day Results No Known Results Summary Purpose e[employer]Works Submission
[2018-05-05 12:18] VITALS: O2SAT 98
--- NOTE | 2018-05-05 13:29 | P.SSS ---
Patient History Date of Service: 05/05/18 Reason for admission: Acute encephalopathy History of Present Illness: Ms Barron is a 57-year-old woman with history of liver cirrhosis, with history of TIPS, Crohn disease, who was brought to ER with altered mental status. The patient has not know why she is in the hospital. She is confused oriented x2. Ammonia level is within normal limits. Lab work mostly unremarkable. CT of the head preliminary report showed no acute abnormality. No apparent history of fever or chills. The last time she was admitted to the hospital with similar presentation secondary to volume depletion. At this time, her vital signs are within normal limits. Allergies ceftriaxone [From Rocephin] Allergy (Verified 03/18/18 08:37) Anaphylaxis iodine Allergy (Verified 10/03/17 02:36) Anaphylaxis promethazine [From Phenergan] Allergy (Verified 03/18/18 08:37) Itching Fish Allergy (Uncoded 08/23/16 14:07) Rash Home Medications: Furosemide 40 mg PO DAILY 08/22/16 Rifaximin [Xifaxan] 550 mg PO BID 08/22/16 Gabapentin [Neurontin*] 600 mg PO BID 04/25/17 Pantoprazole [Protonix Tab*] 40 mg PO DAILY 04/25/17 Quetiapine [Seroquel*] 200 mg PO BEDTIME 04/25/17 Spironolactone [Aldactone*] 25 mg PO DAILY #30 tab 03/18/18 Eszopiclone 2 ng PO BEDTIME 05/04/18 Methylnaltrexone [place] [Relistor] 3 tab PO DAILY 05/04/18 Potassium Chloride [Klor-Con 10] 4 tab PO DAILY 05/04/18 - Past Medical/Surgical History Has patient received pneumonia vaccine in the past: No Diabetic: No -: Crohn's -: Liver disease -: Depression -: Cirrhosis -: OCD -: multiple abdominal surgery -: TIPS procedure - Family History Mother Notes: pt was adopted - Social History Smoking Status: Current every day smoker Alcohol use: No CD- Drugs: No Caffeine use: Yes Place of Residence: Home Review of Systems 10-point ROS is otherwise unremarkable Physical Examination - Vital Signs Temperature: 97.6 F Blood Pressure: 98/57 Pulse: 86 Respirations: 20 Pulse Ox (%): 98 - Physical Exam General: Alert, In no apparent distress HEENT: Atraumatic, PERRLA, Mucous membr. moist/pink, EOMI, Sclerae nonicteric Neck: Supple, 2+ carotid pulse no bruit, No LAD, Without JVD or thyroid abnormality Respiratory: Clear to auscultation bilaterally, Normal air movement Cardiovascular: Regular rate/rhythm, Normal S1 S2 Gastrointestinal: Normal bowel sounds, No tenderness Musculoskeletal: No tenderness Integumentary: No rashes Neurological: Normal gait, Normal speech, Normal strength at 5/5 x4 extr, Normal tone, Normal affect Lymphatics: No axilla or inguinal lymphadenopathy - Studies Microbiology Data (last 24 hrs): 05/03/18 23:40 Blood - Blood Anaerobic Blood Culture - Final - Diagnosis (Problem(s)) (1) Acute encephalopathy Onset Date: 03/18/18 Status: Acute (2) Dehydration symptoms Onset Date: 04/29/17 Status: Acute (3) Chronic renal disease Onset Date: 05/05/18 Status: Chronic Qualifiers: Chronic kidney disease stage: stage 3 (moderate) Qualified Code(s): N18.3 - Chronic kidney disease, stage 3 (moderate) (4) Crohn disease Onset Date: 10/03/17 Status: Chronic Qualifiers: Gastrointestinal tract location: small intestine Digestive disease complication type: without complication Qualified Code(s): K50.00 - Crohn's disease of small intestine without complications (5) Hepatic cirrhosis Onset Date: 10/03/17 Status: Chronic Qualifiers: Hepatic cirrhosis type: unspecified hepatic cirrhosis Ascites presence: without ascites Qualified Code(s): K74.60 - Unspecified cirrhosis of liver (6) Insomnia Status: Chronic Qualifiers: Insomnia type: unspecified Qualified Code(s): G47.00 - Insomnia, unspecified (7) Neuropathy Status: Chronic (8) GERD (gastroesophageal reflux disease) Status: Suspected Qualifiers: Esophagitis presence: esophagitis presence not specified Qualified Code(s) : K21.9 - Gastro-esophageal reflux disease without esophagitis Treatment Summary: Overall during the hospital stay patient remained stable The patient was initially admitted to the hospital for acute encephalopathy most likely secondary to dehydration. Patient was given IV fluids here in the hospital along with extensive workup for altered mental status. Patient had head CT which was negative for any acute abnormality. Patient's ammonia level was also within normal limits. UA was negative for any UTI and no other acute abnormality was noted that would be causing her altered mental status. Patient at that time was then discharged home once she was alert and oriented x3 and was asked to follow up with her primary care doctor in 1-2 days post discharge. Patient wanted to be transferred to [facility] for her liver transplant however currently patient is on the liver transplant list but there is no acute need for liver transplant. Patient will need to wait for her turn on the list. Patient demonstrated understanding and thus was discharged home under stable condition - Disposition Disposition: ROUTINE DISCHARGE Condition: GOOD Patient Discharge Instructions: Please f.u with PCP in 1 to 2 week post discharge. NO new medication Diet: Regular Activity: Ad amrita
== END 2018-05-05 11:35 | disposition home or self-care (01) ==
LOC: ER 22:47 → ERHOLD 05-04 02:53 → 2ND 05-04 03:26
PROVIDERS: ADMIT Internal Medicine; ATTEND Internal Medicine
DX: G93.40 Encephalopathy, unspecified (principal); N18.3 Chronic kidney disease, stage 3 (moderate); K50.00 Crohn's disease of small intestine without complications; K74.60 Unspecified cirrhosis of liver; G47.00 Insomnia, unspecified; K21.9 Gastro-esophageal reflux disease without esophagitis; Z91.09 Other allergy status, other than to drugs and biological substances; Z91.013 Allergy to seafood; Z88.8 Allergy status to other drugs, medicaments and biological substances
CPT/HCPCS: 36415 ×2; 51702; 70450; 80048 ×2; 80320; 81025; 82140; 83735 ×2; 84145; 85025 ×2; 87040 ×2; 87086; 87088; 87804 ×2; 96360; 97116 ×2; 97163; 97530; 99285; G0378 ×2; J7030 ×4; 81003; 81015

== ENCOUNTER 2018-12-31 20:28 | Emergency (ER) | payer OTHER ==
--- OUTSIDE RECORDS SUMMARY | 2018-12-31 20:34 | XMS REPORT | Clinical Summary ---
:1960 Author Organization [facility] Address [address] [place] [address] Care Team Providers Name Role Phone Asked, No Pcp Primary Care Provider Unavailable Allergies Active Allergy Reactions Severity Noted Date Comments Ceftriaxone Itching 10/06/2017 Eggshell Membrane Diarrhea 10/08/2016 Egg yoke Iodine Anaphylaxis High 05/01/2016 SOB, wheezing, "my throat closes up." *pt states cannot have topical nor IV Promethazine Other (See Comments) 09/07/2016 Severe confusion Shellfish Derived Anaphylaxis High 05/05/2016 Medications Medication Sig Dispensed Refills Start End Status Date Date cetirizine (ZyrTEC) 10 Take 10 mg by 0 Active MG tablet mouth daily as needed for allergies. cyanocobalamin 1,000 Inject 1,000 0 Active mcg/mL injection mcg into the shoulder, thigh, or buttocks every 30 (thirty) days. eszopiclone (LUNESTA) Take 2 mg by 0 Active 2 MG tablet mouth nightly. Take immediately before bedtime furosemide (LASIX) 40 Take 40 mg by 0 Active mg tablet mouth daily. gabapentin (NEURONTIN) Take 600 mg by 0 Active 600 mg tablet mouth 3 (three) times a day. pantoprazole Take 40 mg by 0 Active (PROTONIX) 40 MG EC mouth daily. tablet QUEtiapine (SEROquel) Take 200 mg by 0 Active 200 MG tablet mouth nightly. methylnaltrexone Take 150 mg by 0 Active (RELISTOR) 150 mg mouth every tablet morning. riFAXimin (XIFAXAN) Take 550 mg by 0 Active 550 mg tablet mouth 2 (two) times a day. senna (SENOKOT) 8.6 mg Take 1 tablet 0 Active tablet by mouth daily. spironolactone Take 100 mg by 0 Active (ALDACTONE) 100 MG mouth daily. tablet butalbital-acetaminoph Take 1 tablet 0 Active en-caff (FIORICET, by mouth every ESGIC) 50-325-40 mg 4 (four) hours per tablet as needed for headaches. potassium chloride Take 20 mEq by 0 Active (K-DUR) 20 MEQ CR mouth daily. tablet polyethylene glycol Take 17 g by 7 packet 0 Active (MIRALAX) 17 gram mouth daily for 9 019 packet 7 days. docusate sodium Take 1 capsule 60 capsule 0 Active (COLACE) 100 MG (100 mg total) 9 019 capsule by mouth every 12 (twelve) hours for 30 days. methocarbamol Take 1 tablet 20 tablet 0 Active (ROBAXIN) 500 MG (500 mg total) 9 019 tablet by mouth 2 (two) times a day for 30 days. riFAXimin (XIFAXAN) Take 550 mg by 0 Discontinued 550 mg tablet mouth 2 (two) 019 times a day. spironolactone Take 100 mg by 0 Discontinued (ALDACTONE) 100 MG mouth every 019 tablet morning. cetirizine (ZyrTEC) 10 Take 10 mg by 0 Discontinued MG tablet mouth daily as 019 needed. QUEtiapine (SEROquel) Take 50 mg by 0 Discontinued 50 MG tablet mouth nightly. 019 pantoprazole Take 40 mg by 0 Discontinued (PROTONIX) 40 MG EC mouth daily. 019 tablet traMADol (ULTRAM) 50 Take 50 mg by 0 Discontinued mg tablet mouth every 6 019 (six) hours as needed for moderate pain. furosemide (LASIX) 40 Take 1 tablet 90 tablet 3 Discontinued mg tabletIndications: (40 mg total) 7 019 Other hypervolemia, by mouth daily. Other cirrhosis of liver (HCC), Awaiting liver transplant lactulose 10 gram/15 Take 15 mL (10 1350 mL 11 mL (15 mL) g total) by 7 018 solutionIndications: mouth 3 (three) Hepatic encephalopathy times a day. (HCC) lactulose 20 gram/30 Take 30 mL (20 8100 mL 3 mL solution g total) by 7 018 mouth 3 (three) times a day. potassium chloride 20 Take 40 mEq by 90 tablet 2 Discontinued mEq tablet extended mouth daily. 7 018 releaseIndications: Hypokalemia, Other hypervolemia, Localized edema, Awaiting liver transplant gabapentin (NEURONTIN) Take 300 mg by 0 Discontinued 300 mg capsule mouth 3 (three) 019 times a day. methylPREDNISolone Take 1 tablet 1 tablet 0 (MEDROL) 32 MG tablet (32 mg total) 8 018 by mouth daily for 1 day. Take 0700 AM 03/26/[address] scan at 1330 methylPREDNISolone Take 1 tablet 1 tablet 0 (MEDROL) 32 MG tablet (32 mg total) 8 018 by mouth daily for 1 dose. Take 1130AM 03/26/[address] scan at 1330 diphenhydrAMINE Take 1 tablet 1 tablet 0 Discontinued (BENADRYL) 50 MG (50 mg total) 8 019 tablet by mouth nightly as needed for itching for up to 1 dose. Take 1130AM 03/26/[address] scan at 1330 diazePAM (VALIUM) 2 MG Take 1 tablet 1 tablet 0 tablet (2 mg total) by 8 018 mouth once for 1 dose. LORAZepam (ATIVAN) 1 Take 1 tablet 1 tablet 0 MG tablet (1 mg total) by 8 018 mouth once for 1 dose. Take 1 tab by mouth 0730 04/24/18 prior to MRI potassium chloride 20 Take 40 mEq by 60 tablet 11 Discontinued mEq tablet extended mouth daily. 8 018 releaseIndications: Hypokalemia, Other hypervolemia, Localized edema, Awaiting liver transplant potassium chloride 20 Take 40 mEq by 60 tablet 11 Discontinued mEq tablet extended mouth daily. 8 019 releaseIndications: Hypokalemia, Other hypervolemia, Localized edema, Awaiting liver transplant metroNIDAZOLE (FLAGYL) Take 1 tablet 24 tablet 0 500 MG tablet (500 mg total) 8 018 by mouth 3 (three) times a day for 8 days. levoFLOXacin Take 1 tablet 8 tablet 0 (LEVAQUIN) 500 MG (500 mg total) 8 018 tablet by mouth daily for 8 days. HYDROcodone-acetaminop Take 1 tablet 30 tablet 0 hen (NORCO) 5-325 mg by mouth every 8 018 per tablet 6 (six) hours as needed for moderate pain for up to 30 days. Max Daily Amount: 4 tablets meloxicam (MOBIC) 7.5 Take 7.5 mg by 1 Discontinued mg tablet mouth daily. 8 019 RELISTOR 150 mg tablet Take 1 tablet 0 Discontinued by mouth every 8 019 morning. CHANTIX 0.5 mg tablet Take 0.5 mg by 1 Discontinued mouth 2 (two) 8 019 times a day. cyanocobalamin 1,000 Inject 1 mL 1 Discontinued mcg/mL injection into the 8 019 shoulder, thigh, or buttocks every 30 (thirty) days. KRISTALOSE 20 gram Take 1 packet 6 Discontinued packet by mouth 3 8 019 (three) times a day. eszopiclone (LUNESTA) Take 2 mg by 3 Discontinued 2 MG tablet mouth nightly 8 019 as needed. varenicline (CHANTIX) Take 0.5 mg by 0 Discontinued 0.5 MG tablet mouth as needed 019 for smoking cessation. Take with full glass of water. gabapentin (NEURONTIN) Take 300 mg by 0 Discontinued 300 mg capsule mouth 2 (two) 019 times a day. (Morning & Afternoon) lactulose (CEPHULAC) Take 20 g by 0 Discontinued 20 gram packet mouth 3 (three) 019 times a day. potassium chloride Take 100 mEq by 0 Discontinued (K-DUR) 20 MEQ CR mouth daily. 019 tablet (Per [facility] record, patient is supposed to be taking 40mEq daily but patient insists that she's taking 100mEq daily. Patient is confused on dose and thinks it's a 100mEq tablet) spironolactone Take 100 mg by 0 Discontinued (ALDACTONE) 100 MG mouth every 019 tablet morning. traMADol (ULTRAM) 50 Take 50 mg by 0 Discontinued mg tablet mouth 2 (two) 019 times a day. lactulose (CEPHULAC) Take 1 packet 90 packet 0 20 gram packet (20 g total) by 9 019 mouth 3 (three) times a day for 30 days. Target Goal is 2 to 3 stools per day potassium chloride Take 2 tablets 150 tablet 0 (K-DUR) 20 MEQ CR (40 mEq total) 9 019 tablet by mouth daily for 30 days. spironolactone Take 1 tablet 90 tablet 3 Discontinued (ALDACTONE) 25 MG (25 mg total) 9 019 tablet by mouth daily. acetaminophen-codeine Take 1 tablet 0 Discontinued (TYLENOL WITH CODEINE by mouth every 019 #3) 300-30 mg per 4 (four) hours tablet as needed for moderate pain. albuterol (PROAIR Inhale 2 puffs 0 Discontinued HFA,PROVENTIL every 6 (six) 019 HFA,VENTOLIN HFA) 90 hours as needed mcg/actuation inhaler for wheezing or shortness of breath. lactulose (CEPHULAC) Take 20 g by 0 Discontinued 20 gram packet mouth 3 (three) 019 times a day. Two to three times a day (Goal is 3-5 bowel movements per day) midodrine (PROAMATINE) Take 1 tablet 90 tablet 0 10 MG tablet (10 mg total) 9 019 by mouth 3 (three) times a day for 30 days. acetaminophen-codeine Take 1 tablet 30 tablet 0 (TYLENOL WITH CODEINE by mouth every 9 019 #3) 300-30 mg per 4 (four) hours tablet as needed for moderate pain for up to 7 days. zinc sulfate (ZINCATE) Take 1 capsule 30 capsule 0 220 (50) mg capsule (220 mg total) 9 019 by mouth daily for 30 days. acetaminophen-codeine Take 1-2 15 tablet 0 Discontinued (TYLENOL WITH CODEINE tablets by 9 019 #3) 300-30 mg per mouth every 6 tablet (six) hours as needed for moderate pain for up to 5 days. Active Problems Problem Noted Date Acute abdominal pain 11/12/2018 Weakness 08/20/2018 Chest pain on breathing 08/20/2018 Non-intractable vomiting with nausea 08/20/2018 Gastroesophageal reflux disease 08/20/2018 CAM (acute kidney injury) 08/20/2018 Disorder of liver 08/20/2018 Liver cirrhosis 07/05/2018 Acute hepatic encephalopathy 10/05/2017 Hematochezia 12/11/2016 Melena 12/11/2016 Overview: Added automatically from request for surgery [id number] Bipolar disorder, unspecified 10/09/2016 Persistent depressive disorder 10/09/2016 Alcoholic cirrhosis of liver 09/12/2016 Hepatic encephalopathy 06/26/2016 S/P TIPS (transjugular intrahepatic portosystemic shunt) 05/08/2016 Thrombocytopenia 05/04/2016 Cirrhosis of liver not due to alcohol 05/04/2016 Malnutrition 05/04/2016 Encounters Date Type Specialty Care Team Description 12/29/2018 Abstract Transplant Jn Cleveland RN 12/25/2018 Emergency Emergency Medicine Iruke, Right flank pain (Primary Dx ); Reji Constipation, unspecified constipation type MD Bebo 12/25/2018 Telephone Transplant Woimtiaz, Sick Call BENNETT Eaton 12/23/2018 Telephone General Internal Rhonda Galvan Medicine RN 12/12/2018 Documentation Transplant Jn Cleveland MELD score update to AMARILIS Castro 15. Recert 03/14/19. 11/17/2018 Anesthesia Event General Surgery Guillaume Walker MD 11/17/2018 Surgery General Surgery Blanca, Hayde BORREGO LAPAROSCOPIC MD 11/12/2018 Hospital Encounter Cardiovascular [facility] Acute abdominal pain (Primary Dx); - MD Amy Hepatic cirrhosis, unspecified hepatic cirrhosis type, unspecified whether ascites present (HCC); 11/18/2018 Pierce Garcia Biliary calculus of other site without obstruction; MD Blayne Anemia, unspecified type; Alejandro Pierson, Thrombocytopenia (HCC); MD Aramis Cirrhosis of liver not due to alcohol (HCC); Bipolar affective disorder, remission status unspecified (HCC) 11/12/2018 Documentation Transplant Dahlia Fernandez, MELD score updated to RN 21;recert due 12/12/18 11/12/2018 Telephone Transplant Pablo, "What do I do" She, AMARILIS 11/12/2018 Telephone Transplant Dahlia Fernandez, 05/21 pain RN 11/10/2018 Telephone Transplant Dahlia Fernandez, Discharge from local [employer] 11/07/2018 Telephone Transplant Dahlia Fernandez, f/u RN 11/05/2018 Hospital Encounter Procedural Calos Garcia Awaiting liver transplant; Cardiology MD Ping Alcoholic cirrhosis of liver with ascites (HCC); Cancer screening; S/P TIPS (transjugular intrahepatic portosystemic shunt) 11/05/2018 Hospital Encounter Radiology Calos Garcia (nonalcoholic steatohepatitis); MD Ping S/P TIPS (transjugular intrahepatic portosystemic shunt); Awaiting liver transplant; Other hypervolemia; Cancer screening 11/05/2018 Hospital Encounter Transplant Calos Garcia (nonalcoholic steatohepatitis); MD Ping S/P TIPS (transjugular intrahepatic portosystemic shunt); Awaiting liver transplant; Other hypervolemia; Cancer screening; Abnormal findings on diagnostic imaging of liver and biliary tract 11/05/2018 Hospital Encounter Transplant Calos Garcia MD 11/04/2018 Telephone Transplant Dahlia Fernandez, Change appt RN 11/03/2018 Intake Access N/A 11/03/2018 Telephone Transplant Dahlia Fernandez, Headache RN 10/28/2018 Telephone Transplant Nelson, Lactulose Shakira, RN 10/28/2018 Refill Transplant Dahlia Fernandez, Med Refill RN 10/23/2018 Documentation Transplant Nellie Lizarraga, [employer] 10/21/2018 Telephone Transplant Dahlia Fernandez, Check in RN 10/10/2018 Documentation Transplant Nellie Lizarraga, [employer] 10/09/2018 Telephone Transplant Yue Tirado, Speak With Social MA Worker 10/08/2018 Telephone Transplant Gene Díaz, Appointment MA 10/08/2018 [place]ation [place] [facility] [place]ation Transplant Nellie Lizarraga[place] [facility] [place]/07/2018 Refill Transplant Dahlia Fernandez, Med Refill RN 10/07/2018 Telephone Transplant Dahlia Fernandez, returning call RN 10/06/2018 Telephone Transplant Dahlia Fernandez, returning call RN 10/03/2018 Telephone Transplant Gene Díaz, Obtain Lab Results MA 10/01/2018 Hospital Encounter General Internal Pierce Garcia - Víctor Cisneros MD 10/02/2018 Heriberto Douglas MD 10/01/2018 Intake Access N/A 09/10/2018 Telephone Transplant Elham, [place] [facility] [place]/09/2018 Telephone Transplant Dahlia Fernandez, returning call RN 08/29/2018 Hospital Encounter Transplant Calos Garcia (nonalcoholic steatohepatitis); MD Ping Awaiting liver transplant; S/P TIPS (transjugular intrahepatic portosystemic shunt); CAM (acute kidney injury) (HCC); Disorientation 08/29/2018 Hospital Encounter Transplant Calos Garcia MD 08/29/2018 Telephone Transplant Dahlia Fernandez SWappt RN 08/27/2018 Telephone Home Health Services Kaleb Lopez, PhD 08/27/2018 Telephone Transplant Dahlia Fernandez, f/u RN 08/26/2018 Telephone Transplant Dahlia Fernandez, Positive drug and RN nicotine screen 08/21/2018 Documentation Transplant Dahlia Fernandez, MELD score updated to RN 16;recert due 11/19/18 08/20/2018 Hospital Encounter General Internal [facility] Other cirrhosis of liver (HCC) (Primary Dx); - Víctor Reyes MD Weakness; 08/23/2018 Pierce Garcia Chest pain on breathing; MD Blayne Non-intractable vomiting with nausea, unspecified vomiting type; Gastroesophageal reflux disease, esophagitis presence not specified; HE (hepatic encephalopathy) (HCC); CAM (acute kidney injury) (HCC) 08/20/2018 Hospital Encounter Transplant Calos Garcia (nonalcoholic steatohepatitis); MD Ping S/P TIPS (transjugular intrahepatic portosystemic shunt); Other hypervolemia 08/20/2018 Orders Only Transplant Dahlia Fernandez NASH (nonalcoholic steatohepatitis) (Primary Dx); RN S/P TIPS (transjugular intrahepatic portosystemic shunt); Other hypervolemia 08/15/2018 Telephone Transplant Dahlia Fernandez, HH request RN 08/01/2018 Telephone Transplant Dahlia Fernandez, Care coordination RN 07/31/2018 Telephone Transplant Dahlia Fernandez, Blood work RN 07/31/2018 Telephone Transplant Dahlia Fernandez, returning call RN 07/30/2018 Telephone Transplant Telma Medrano, Labs MA 07/11/2018 Telephone Transplant Telma Medrano, Care Connect Alert MA 07/10/2018 Patient Outreach Quality America Arguelles, RN 07/05/2018 Hospital Encounter General Internal Alejandro Pierson, Medicine MD Aramis 07/10/2018 Pierce Garcia MD 07/05/2018 Intake Access N/A 06/30/2018 Telephone Transplant Dahlia Fernandez, returning call RN 06/11/2018 Refill Transplant Dahlia Fernandez, Med Refill RN 05/27/2018 Telephone Transplant Dahlia Fernandez, Heartburn RN 05/27/2018 Telephone Transplant Dahlia Fernandez, F/u RN 05/16/2018 Refill Transplant Nelson, Med Refill Shakira, RN 05/16/2018 Telephone Transplant Talon, Rx Refill Request BENNETT Eaton 05/06/2018 Telephone Transplant Dahlia Fernandez, f/u RN 05/05/2018 Telephone Transplant Dahlia Fernandez, Sick call [...] Transplant Dahlia Fernandez, Returning call RN 04/08/2018 Telephone Transplant Telma Medrano, Weight gain [...] liver transplant; Cancer screening 03/26/2018 Telephone Transplant Rodger, LAB Order Padmini Reynolds MA 03/26/2018 Orders Only Transplant Dahlia Fernandez, AMARILIS 03/26/2018 Telephone Transplant Rodger, [facility] Padmini Reynolds MA 03/20/2018 Telephone Transplant Dahlia Fernandez, Lab results [...] liver transplant; Cancer screening [facility]/14[facility] 03/14/2018 Telephone Transplant Dahlia Fernandez, Dehydration RN 03/14/2018 Telephone Transplant Dahlia Fernandez, f/u RN 02/20/2018 Telephone Transplant Dahlia Fernandez, returning call RN 02/19/2018 Telephone Transplant Gene Díaz, Sick Call MA 02/06/2018 Telephone Transplant Dahlia Fernandez, returning call RN 01/24/2018 Telephone Transplant Dahlia Fernandez, f/u RN 01/22/2018 Telephone Transplant AARTI Hanley Orders [place], [place] 01/10/2018 Documentation Transplant Juan Manuel, MELD score updated to Bonny, RN 15, recert due 04/12/18 01/10/2018 Telephone Transplant Gene Díaz, Speak with MA Coordinator 12/30/2017 Telephone Transplant Talon, Immunization Question BENNETT Eaton after 12/30/2017 Immunizations Name Dates Previously Given Next Due FLUCELVAX QUAD PF (0.5mL syringe) 05/08/2016 Influenza (IM) Preservative Free 04/21/2018 Pneumococcal Conjugate 13-Valent 05/08/2016 Family History Patient is adopted Medical History Relation Name Comments No Known Problems Father No Known Problems Mother Relation Name Status Comments Father Mother Social History Tobacco Use Types Packs/Day Years Used Date Former Smoker Cigarettes 0.5 38 08/12/1976 - 09/07/2018 Smokeless Tobacco: Never Used Tobacco Cessation: Ready to Quit: No Comments: smokes 5 cigarettes per day Alcohol Use Drinks/Week oz/Week Comments No Former social alcohol use, quit several years ago; denies history of heavy alcohol use Sex Assigned at Date Recorded Not on file Job Start Date Occupation Industry Not on file Not on file Not on file Travel History Travel Start Travel End No recent travel history available. Last Filed Vital Signs Vital Sign Reading Time Taken Blood Pressure 131/71 12/25/2018 10:17 PM CDT Pulse 81 12/25/2018 10:17 PM CDT Temperature 35.9 C (96.6 F) 12/25/2018 10:17 PM CDT Respiratory Rate 17 12/25/2018 10:17 PM CDT Oxygen Saturation 97% 12/25/2018 10:17 PM CDT Inhaled Oxygen Concentration - - Weight 88 kg (194 lb) 12/25/2018 7:55 PM CDT Height 149.9 cm (4' 11") 12/25/2018 7:55 PM CDT Body Mass Index 39.18 12/25/2018 7:55 PM CDT Plan of Treatment Health Maintenance Due Date Last Done Comments COLON CANCER SCREENING 2011 SHINGLES VACCINES (#1) 2011 BREAST CANCER SCREENING 10/17/2018 10/17/2016, 10/09/2016, 10/09/2016 INFLUENZA VACCINE 03/12/2019 05/01/2018, 05/08/2016 Implants Implanted Type Area Finish Production Manager Device Shelf Model / Identifier Expiration Serial / Date Lot Stent Endprths Viatorr Tips 8cm 10mm - [id number] Surgical N/A: N/A W L GORE 02/06/2019 [id number] / Implanted: 05/04/2016 (Quantity not on file) Stents [id number] / [id number] Procedures Procedure Name Priority Date/Time Associated Comments Diagnosis CT RENAL STONE STAT 12/25/2018 9:34 Results for this PROTOCOL PM CDT procedure are in the results section. URINALYSIS STAT 12/25/2018 8:27 Results for this PM CDT procedure are in the results section. ESTIMATED GFR STAT 12/25/2018 8:20 Results for this PM CDT procedure are in the results section. HC COMPLETE BLD COUNT STAT 12/25/2018 8:20 Results for this W/AUTO DIFF PM CDT procedure are in the results section. COMPREHENSIVE STAT 12/25/2018 8:20 Results for this METABOLIC PANEL PM CDT procedure are in the results section. ESTIMATED GFR Routine 11/18/2018 4:00 Results for this AM CDT procedure are in the results section. PHOSPHORUS LEVEL Routine 11/18/2018 4:00 Results for this AM CDT procedure are in the results section. HEPATIC FUNCTION PANEL Routine 11/18/2018 4:00 Results for this AM CDT procedure are in the results section. MAGNESIUM LEVEL Routine 11/18/2018 4:00 Results for this AM CDT procedure are in the results section. BASIC METABOLIC PANEL Routine 11/18/2018 4:00 Results for this AM CDT procedure are in the results section. PROTHROMBIN TIME WITH Routine 11/18/2018 3:40 Results for this INR AM CDT procedure are in the results section. HC COMPLETE BLD COUNT Routine 11/18/2018 3:40 Results for this W/AUTO DIFF AM CDT procedure are in the results section. SD AN ELECTIVE Routine 11/17/2018 9:03 ENDOTRACHEAL AIRWAY PM CDT Procedure Note - Adan Figueroa MD - 11/17/2018 9:03 PM CDT Airway Performed by: Adan Figueroa MD Authorized by: Adan Figueroa MD Location: OR Urgency: Elective Difficult Airway: No Preoxygenated with 100% O2: Yes C-spine Precautions Maintained Throughout: No Mask Ventilation: Not attempted Final Airway Type: Endotracheal airway Final Endotracheal Airway: ETT Technique Used: Direct laryngoscopy Insertion Site: Oral Blade Type: Jeter Laryngoscope Blade/Videolaryngoscope Blade Size: 2 ETT Size (mm): 7.0 Measured from: Teeth Placement Verified by: CO2 detection Laryngoscopic view: Grade I - full view of glottis Rapid Sequence Induction (RSI): Yes Modified RSI: No Number of Attempts at Approach: 1 CHOLECYSTECTOMY, 11/17/2018 7:35 CIRRHOSIS WITH LAPAROSCOPIC PM CDT SYMPTOMATIC CHOLELITHIASIS SURGICAL PATHOLOGY Routine 11/17/2018 8:49 Results for this REQUEST AM CDT procedure are in the results section. ESTIMATED GFR Routine 11/17/2018 6:30 Results for this AM CDT procedure are in the results section. PROTHROMBIN TIME WITH Routine 11/17/2018 6:30 Results for this INR AM CDT procedure are in the results section. PHOSPHORUS LEVEL Routine 11/17/2018 6:30 Results for this AM CDT procedure are in the results section. HEPATIC FUNCTION PANEL Routine 11/17/2018 6:30 Results for this AM CDT procedure are in the results section. MAGNESIUM LEVEL Routine 11/17/2018 6:30 Results for this AM CDT procedure are in the results section. HC COMPLETE BLD COUNT Routine 11/17/2018 6:30 Results for this W/AUTO DIFF AM CDT procedure are in the results section. BASIC METABOLIC PANEL Routine 11/17/2018 6:30 Results for this AM CDT procedure are in the results section. SMEAR REVIEW Routine 11/16/2018 8:00 Results for this AM CDT procedure are in the results section. HC COMPLETE BLD COUNT Routine 11/16/2018 8:00 Results for this W/AUTO DIFF AM CDT procedure are in the results section. SMEAR REVIEW Routine 11/16/2018 4:55 Results for this AM CDT procedure are in the results section. ESTIMATED GFR Routine 11/16/2018 4:55 Results for this AM CDT procedure are in the results section. PROTHROMBIN TIME WITH Routine 11/16/2018 4:55 Results for this INR AM CDT procedure are in the results section. PHOSPHORUS LEVEL Routine 11/16/2018 4:55 Results for this AM CDT procedure are in the results section. HEPATIC FUNCTION PANEL Routine 11/16/2018 4:55 Results for this AM CDT procedure are in the results section. MAGNESIUM LEVEL Routine 11/16/2018 4:55 Results for this AM CDT procedure are in the results section. HC COMPLETE BLD COUNT Routine 11/16/2018 4:55 Results for this W/AUTO DIFF AM CDT procedure are in the results section. BASIC METABOLIC PANEL Routine 11/16/2018 4:55 Results for this AM CDT procedure are in the results section. AMMONIA LEVEL Routine 11/15/2018 5:55 Results for this AM CDT procedure are in the results section. ESTIMATED GFR Routine 11/15/2018 5:48 Results for this AM CDT procedure are in the results section. PROTHROMBIN TIME WITH Routine 11/15/2018 5:48 Results for this INR AM CDT procedure are in the results section. PHOSPHORUS LEVEL Routine 11/15/2018 5:48 Results for this AM CDT procedure are in the results section. MAGNESIUM LEVEL Routine 11/15/2018 5:48 Results for this AM CDT procedure are in the results section. HEPATIC FUNCTION PANEL Routine 11/15/2018 5:48 Results for this AM CDT procedure are in the results section. BASIC METABOLIC PANEL Routine 11/15/2018 5:48 Results for this AM CDT procedure are in the results section. HC COMPLETE BLD COUNT Routine 11/15/2018 5:48 Results for this W/AUTO DIFF AM CDT procedure are in the results section. URINE CULTURE Routine 11/15/2018 5:20 Results for this AM CDT procedure are in the results section. URINALYSIS SCREEN AND Routine 11/15/2018 5:00 Results for this MICROSCOPY, WITH REFLEX AM CDT procedure are in TO CULTURE the results section. XR CHEST 1 VW PORTABLE Routine 11/14/2018 5:32 Results for this PM CDT procedure are in the results section. SMEAR REVIEW Routine 11/14/2018 6:05 Results for this AM CDT procedure are in the results section. PROTHROMBIN TIME WITH Routine 11/14/2018 6:05 Results for this INR AM CDT procedure are in the results section. HC COMPLETE BLD COUNT Routine 11/14/2018 6:05 Results for this W/AUTO DIFF AM CDT procedure are in the results section. ESTIMATED GFR Routine 11/14/2018 6:02 Results for this AM CDT procedure are in the results section. PHOSPHORUS LEVEL Routine 11/14/2018 6:02 Results for this AM CDT procedure are in the results section. MAGNESIUM LEVEL Routine 11/14/2018 6:02 Results for this AM CDT procedure are in the results section. HEPATIC FUNCTION PANEL Routine 11/14/2018 6:02 Results for this AM CDT procedure are in the results section. BASIC METABOLIC PANEL Routine 11/14/2018 6:02 Results for this AM CDT procedure are in the results section. PREPARE RBC Routine 11/14/2018 5:30 Results for this AM CDT procedure are in the results section. TYPE AND SCREEN Routine 11/14/2018 5:30 Results for this AM CDT procedure are in the results section. US RENAL Routine 11/13/2018 6:19 Results for this AM CDT procedure are in the results section. BLOOD CULTURE, AEROBIC Routine 11/13/2018 4:05 Results for this & ANAEROBIC AM CDT procedure are in the results section. ESTIMATED GFR Routine 11/13/2018 4:00 Results for this AM CDT procedure are in the results section. HEMOGLOBIN A1C Routine 11/13/2018 4:00 Results for this AM CDT procedure are in the results section. PROTHROMBIN TIME WITH Routine 11/13/2018 4:00 Results for this INR AM CDT procedure are in the results section. PREALBUMIN LEVEL Routine 11/13/2018 4:00 Results for this AM CDT procedure are in the results section. PHOSPHORUS LEVEL Routine 11/13/2018 4:00 Results for this AM CDT procedure are in the results section. MAGNESIUM LEVEL Routine 11/13/2018 4:00 Results for this AM CDT procedure are in the results section. HEPATIC FUNCTION PANEL Routine 11/13/2018 4:00 Results for this AM CDT procedure are in the results section. BASIC METABOLIC PANEL Routine 11/13/2018 4:00 Results for this AM CDT procedure are in the results section. HC COMPLETE BLD COUNT Routine 11/13/2018 4:00 Results for this W/AUTO DIFF AM CDT procedure are in the results section. LACTIC ACID LEVEL, Timed 11/13/2018 4:00 Results for this SEPSIS - NOW AND REPEAT AM CDT procedure are in 2X EVERY 3 HOURS the results section. BLOOD CULTURE, AEROBIC Routine 11/13/2018 4:00 Results for this & ANAEROBIC AM CDT procedure are in the results section. ECG 12-LEAD STAT 11/13/2018 3:30 Results for this AM CDT procedure are in the results section. URINALYSIS SCREEN AND Routine 11/13/2018 1:03 Results for this MICROSCOPY, WITH REFLEX AM CDT procedure are in TO CULTURE the results section. URINE CULTURE Routine 11/13/2018 1:03 Results for this AM CDT procedure are in the results section. LACTIC ACID LEVEL, Timed 11/12/2018 10:20 Results for this SEPSIS - NOW AND REPEAT PM CDT procedure are in 2X EVERY 3 HOURS the results section. ESTIMATED GFR STAT 11/12/2018 4:45 Results for this PM CDT procedure are in the results section. LACTIC ACID LEVEL, STAT 11/12/2018 4:45 Results for this SEPSIS - NOW AND REPEAT PM CDT procedure are in 2X EVERY 3 HOURS the results section. LIPASE LEVEL STAT 11/12/2018 4:45 Results for this PM CDT procedure are in the results section. COMPREHENSIVE METABOLIC STAT 11/12/2018 4:45 Results for this PANEL PM CDT procedure are in the results section. HC COMPLETE BLD COUNT STAT 11/12/2018 4:45 Results for this W/AUTO DIFF PM CDT procedure are in the results section. US GALLBLADDER STAT 11/12/2018 4:30 Results for this PM CDT procedure are in the results section. ECHOCARDIOGRAM WITH Routine 11/05/2018 4:25 Awaiting liver Results for this AGITATED SALINE (64307) PM CDT transplant procedure are in Alcoholic cirrhosis the results of liver with ascites section. (HCC) Cancer screening S/P TIPS (transjugular intrahepatic portosystemic shunt) MRI ABDOMEN W WO Routine 11/05/2018 3:15 [facility] (nonalcoholic Results for this CONTRAST PM CDT steatohepatitis) procedure are in S/P TIPS the results (transjugular section. intrahepatic portosystemic shunt) Awaiting liver transplant Other hypervolemia Cancer screening HC COMPLETE BLD COUNT Routine 11/05/2018 2:27 [facility] (nonalcoholic Results for this W/AUTO DIFF PM CDT steatohepatitis) procedure are in S/P TIPS the results (transjugular section. intrahepatic portosystemic shunt) Awaiting liver transplant Other hypervolemia Cancer screening PARTIAL THROMBOPLASTIN Routine 11/05/2018 2:27 [facility] (nonalcoholic Results for this TIME (PTT) PM CDT steatohepatitis) procedure are in S/P TIPS the results (transjugular section. intrahepatic portosystemic shunt) Awaiting liver transplant Other hypervolemia Cancer screening PROTHROMBIN TIME WITH Routine 11/05/2018 2:27 [facility] (nonalcoholic Results for this INR PM CDT steatohepatitis) procedure are in S/P TIPS the results (transjugular section. intrahepatic portosystemic shunt) Awaiting liver transplant Other hypervolemia Cancer screening NICOTINE AND COTININE, Routine 11/05/2018 2:27 [facility] (nonalcoholic Results for this SERUM PM CDT steatohepatitis) procedure are in S/P TIPS the results (transjugular section. intrahepatic portosystemic shunt) Awaiting liver transplant Other hypervolemia Cancer screening Abnormal findings on diagnostic imaging of liver and biliary tract URINE DRUGS OF ABUSE Routine 11/05/2018 2:26 [facility] (nonalcoholic Results for this SCREEN PM CDT steatohepatitis) procedure are in S/P TIPS the results (transjugular section. intrahepatic portosystemic shunt) Awaiting liver transplant Other hypervolemia Cancer screening Abnormal findings on diagnostic imaging of liver and biliary tract ESTIMATED GFR Routine 11/05/2018 12:40 Results for this PM CDT procedure are in the results section. PHOSPHORUS LEVEL Routine 11/05/2018 12:40 [facility] (nonalcoholic Results for this PM CDT steatohepatitis) procedure are in S/P TIPS the results (transjugular section. intrahepatic portosystemic shunt) Awaiting liver transplant Other hypervolemia Cancer screening MAGNESIUM LEVEL Routine 11/05/2018 12:40 [facility] (nonalcoholic Results for this PM CDT steatohepatitis) procedure are in S/P TIPS the results (transjugular section. intrahepatic portosystemic shunt) Awaiting liver transplant Other hypervolemia Cancer screening ALPHA FETOPROTEIN Routine 11/05/2018 12:40 Abnormal findings on Results for this PM CDT diagnostic imaging of procedure are in liver and biliary the results tract section. [facility]AR[facility]ANE (nonalcoholic steatohepatitis) S/P TIPS (transjugular intrahepatic portosystemic shunt) Awaiting liver transplant Other hypervolemia Cancer screening HEPATIC FUNCTION PANEL Routine 11/05/2018 12:40 [facility] (nonalcoholic Results for this PM CDT steatohepatitis) procedure are in S/P TIPS the results (transjugular section. intrahepatic portosystemic shunt) Awaiting liver transplant Other hypervolemia Cancer screening BASIC METABOLIC PANEL Routine 11/05/2018 12:40 [facility] (nonalcoholic Results for this PM CDT steatohepatitis) procedure are in S/P TIPS the results (transjugular section. intrahepatic portosystemic shunt) Awaiting liver transplant Other hypervolemia Cancer screening ESTIMATED GFR Routine 10/02/2018 7:21 Results for this AM CHARGE ATTENDANT procedure are in the results section. PHOSPHORUS LEVEL Routine 10/02/2018 7:21 Results for this AM CHARGE ATTENDANT procedure are in the results section. MAGNESIUM LEVEL Routine 10/02/2018 7:21 Results for this AM CHARGE ATTENDANT procedure are in the results section. HEPATIC FUNCTION PANEL Routine 10/02/2018 7:21 Results for this AM CHARGE ATTENDANT procedure are in the results section. BASIC METABOLIC PANEL Routine 10/02/2018 7:21 Results for this AM CHARGE ATTENDANT procedure are in the results section. HEMOGLOBIN A1C Routine 10/02/2018 4:00 Results for this AM CHARGE ATTENDANT procedure are in the results section. PROTHROMBIN TIME WITH Routine 10/02/2018 4:00 Results for this INR AM CHARGE ATTENDANT procedure are in the results section. HC COMPLETE BLD COUNT Routine 10/02/2018 4:00 Results for this W/AUTO DIFF AM CHARGE ATTENDANT procedure are in the results section. URINE DRUGS OF ABUSE Routine 10/01/2018 7:30 Results for this SCREEN PM CHARGE ATTENDANT procedure are in the results section. URINALYSIS SCREEN AND Routine 10/01/2018 7:28 Results for this MICROSCOPY, WITH REFLEX PM CHARGE ATTENDANT procedure are in TO CULTURE the results section. URINE CULTURE Routine 10/01/2018 7:28 Results for this PM CHARGE ATTENDANT procedure are in the results section. XR CHEST 2 VW Routine 10/01/2018 7:06 Results for this PM CHARGE ATTENDANT procedure are in the results section. HC COMPLETE BLD COUNT Routine 10/01/2018 6:30 Results for this W/AUTO DIFF PM CHARGE ATTENDANT procedure are in the results section. SMEAR REVIEW Routine 10/01/2018 5:15 Results for this PM CHARGE ATTENDANT procedure are in the results section. ESTIMATED GFR Routine 10/01/2018 5:15 Results for this PM CHARGE ATTENDANT procedure are in the results section. NICOTINE AND COTININE, Routine 10/01/2018 5:15 Results for this SERUM PM CHARGE ATTENDANT procedure are in the results section. PROTHROMBIN TIME WITH Routine 10/01/2018 5:15 Results for this INR PM CHARGE ATTENDANT procedure are in the results section. HEPATIC FUNCTION PANEL Routine 10/01/2018 5:15 Results for this PM CHARGE ATTENDANT procedure are in the results section. PHOSPHORUS LEVEL Routine 10/01/2018 5:15 Results for this PM CHARGE ATTENDANT procedure are in the results section. MAGNESIUM LEVEL Routine 10/01/2018 5:15 Results for this PM CHARGE ATTENDANT procedure are in the results section. HC COMPLETE BLD COUNT Routine 10/01/2018 5:15 Results for this W/AUTO DIFF PM CHARGE ATTENDANT procedure are in the results section. BASIC METABOLIC PANEL Routine 10/01/2018 5:15 Results for this PM CHARGE ATTENDANT procedure are in the results section. PREALBUMIN LEVEL Routine 10/01/2018 5:15 Results for this PM CHARGE ATTENDANT procedure are in the results section. RESPIRATORY PATHOGEN Routine 10/01/2018 5:15 Results for this PANEL PM CHARGE ATTENDANT procedure are in the results section. BLOOD CULTURE, AEROBIC Routine 10/01/2018 5:15 Results for this & ANAEROBIC PM CHARGE ATTENDANT procedure are in the results section. BLOOD CULTURE, AEROBIC Routine 10/01/2018 4:50 Results for this & ANAEROBIC PM CHARGE ATTENDANT procedure are in the results section. ESTIMATED GFR Routine 08/29/2018 1:11 Results for this PM CHARGE ATTENDANT procedure are in the results section. URINE DRUGS OF ABUSE Routine 08/29/2018 1:11 [facility] (nonalcoholic Results for this SCREEN PM CHARGE ATTENDANT steatohepatitis) procedure are in Awaiting liver the results transplant section. S/P TIPS (transjugular intrahepatic portosystemic shunt) CAM (acute kidney injury) (HCC) NICOTINE AND Routine 08/29/2018 1:11 Disorientation Results for this METABOLITES, SERUM PM CHARGE ATTENDANT [facility] (nonalcoholic procedure are in steatohepatitis) the results Awaiting liver section. transplant S/P TIPS (transjugular intrahepatic portosystemic shunt) CAM (acute kidney injury) (HCC) PHOSPHORUS LEVEL Routine 08/29/2018 1:11 [facility] (nonalcoholic Results for this PM CHARGE ATTENDANT steatohepatitis) procedure are in Awaiting liver the results transplant section. S/P TIPS (transjugular intrahepatic portosystemic shunt) CAM (acute kidney injury) (HCC) MAGNESIUM LEVEL Routine 08/29/2018 1:11 [facility] (nonalcoholic Results for this PM CHARGE ATTENDANT steatohepatitis) procedure are in Awaiting liver the results transplant section. S/P TIPS (transjugular intrahepatic portosystemic shunt) CAM (acute kidney injury) (HCC) HC COMPLETE BLD COUNT Routine 08/29/2018 1:11 [facility] (nonalcoholic Results for this W/AUTO DIFF PM CHARGE ATTENDANT steatohepatitis) procedure are in Awaiting liver the results transplant section. S/P TIPS (transjugular intrahepatic portosystemic shunt) CAM (acute kidney injury) (HCC) PARTIAL THROMBOPLASTIN Routine 08/29/2018 1:11 [facility] (nonalcoholic Results for this TIME (PTT) PM CHARGE ATTENDANT steatohepatitis) procedure are in Awaiting liver the results transplant section. S/P TIPS (transjugular intrahepatic portosystemic shunt) CAM (acute kidney injury) (HCC) PROTHROMBIN TIME WITH Routine 08/29/2018 1:11 [facility] (nonalcoholic Results for this INR PM CHARGE ATTENDANT steatohepatitis) procedure are in Awaiting liver the results transplant section. S/P TIPS (transjugular intrahepatic portosystemic shunt) CAM (acute kidney injury) (HCC) HEPATIC FUNCTION PANEL Routine 08/29/2018 1:11 [facility] (nonalcoholic Results for this PM CHARGE ATTENDANT steatohepatitis) procedure are in Awaiting liver the results transplant section. S/P TIPS (transjugular intrahepatic portosystemic shunt) CAM (acute kidney injury) (HCC) BASIC METABOLIC PANEL Routine 08/29/2018 1:11 [facility] (nonalcoholic Results for this PM CHARGE ATTENDANT steatohepatitis) procedure are in Awaiting liver the results transplant section. S/P TIPS (transjugular intrahepatic portosystemic shunt) CAM (acute kidney injury) (HCC) PROTHROMBIN TIME WITH Routine 08/23/2018 4:30 Results for this INR AM CHARGE ATTENDANT procedure are in the results section. HC COMPLETE BLD COUNT Routine 08/23/2018 4:30 Results for this W/AUTO DIFF AM CHARGE ATTENDANT procedure are in the results section. ESTIMATED GFR Routine 08/23/2018 4:00 Results for this AM CHARGE ATTENDANT procedure are in the results section. PHOSPHORUS LEVEL Routine 08/23/2018 4:00 Results for this AM CHARGE ATTENDANT procedure are in the results section. MAGNESIUM LEVEL Routine 08/23/2018 4:00 Results for this AM CHARGE ATTENDANT procedure are in the results section. HEPATIC FUNCTION PANEL Routine 08/23/2018 4:00 Results for this AM CHARGE ATTENDANT procedure are in the results section. BASIC METABOLIC PANEL Routine 08/23/2018 4:00 Results for this AM CHARGE ATTENDANT procedure are in the results section. ESTIMATED GFR Routine 08/22/2018 5:00 Results for this AM CHARGE ATTENDANT procedure are in the results section. HC COMPLETE BLD COUNT Routine 08/22/2018 5:00 Results for this W/AUTO DIFF AM CHARGE ATTENDANT procedure are in the results section. PHOSPHORUS LEVEL Routine 08/22/2018 5:00 Results for this AM CHARGE ATTENDANT procedure are in the results section. MAGNESIUM LEVEL Routine 08/22/2018 5:00 Results for this AM CHARGE ATTENDANT procedure are in the results section. PARTIAL THROMBOPLASTIN Routine 08/22/2018 5:00 Results for this TIME (PTT) AM CHARGE ATTENDANT procedure are in the results section. PROTHROMBIN TIME WITH Routine 08/22/2018 5:00 Results for this INR AM CHARGE ATTENDANT procedure are in the results section. HEPATIC FUNCTION PANEL Routine 08/22/2018 5:00 Results for this AM CHARGE ATTENDANT procedure are in the results section. BASIC METABOLIC PANEL Routine 08/22/2018 5:00 Results for this AM CHARGE ATTENDANT procedure are in the results section. US HEPATIC Routine 08/21/2018 7:20 Results for this PM CHARGE ATTENDANT procedure are in the results section. PARTIAL THROMBOPLASTIN Routine 08/21/2018 10:30 Results for this TIME (PTT) AM CHARGE ATTENDANT procedure are in the results section. PROTHROMBIN TIME WITH Routine 08/21/2018 10:30 Results for this INR AM CHARGE ATTENDANT procedure are in the results section. TROPONIN Routine 08/21/2018 4:10 Results for this AM CHARGE ATTENDANT procedure are in the results section. LACTIC ACID LEVEL Routine 08/21/2018 4:10 Results for this AM CHARGE ATTENDANT procedure are in the results section. ESTIMATED GFR Routine 08/21/2018 4:10 Results for this AM CHARGE ATTENDANT procedure are in the results section. HEMOGLOBIN A1C Routine 08/21/2018 4:10 Results for this AM CHARGE ATTENDANT procedure are in the results section. PROTHROMBIN TIME WITH Routine 08/21/2018 4:10 Results for this INR AM CHARGE ATTENDANT procedure are in the results section. PHOSPHORUS LEVEL Routine 08/21/2018 4:10 Results for this AM CHARGE ATTENDANT procedure are in the results section. MAGNESIUM LEVEL Routine 08/21/2018 4:10 Results for this AM CHARGE ATTENDANT procedure are in the results section. HEPATIC FUNCTION PANEL Routine 08/21/2018 4:10 Results for this AM CHARGE ATTENDANT procedure are in the results section. BASIC METABOLIC PANEL Routine 08/21/2018 4:10 Results for this AM CHARGE ATTENDANT procedure are in the results section. HC COMPLETE BLD COUNT Routine 08/21/2018 4:10 Results for this W/AUTO DIFF AM CHARGE ATTENDANT procedure are in the results section. LACTIC ACID LEVEL, Timed 08/20/2018 11:29 Results for this SEPSIS - NOW AND REPEAT PM CHARGE ATTENDANT procedure are in 2X EVERY 3 HOURS the results section. TROPONIN Timed 08/20/2018 11:29 Results for this PM CHARGE ATTENDANT procedure are in the results section. PREALBUMIN LEVEL Routine 08/20/2018 10:17 Results for this PM CHARGE ATTENDANT procedure are in the results section. NM LUNG VENTILATION STAT 08/20/2018 8:36 Results for this PERFUSION PM CHARGE ATTENDANT procedure are in the results section. URINALYSIS SCREEN AND STAT 08/20/2018 6:59 Results for this MICROSCOPY, WITH REFLEX PM CHARGE ATTENDANT procedure are in TO CULTURE the results section. D-DIMER STAT 08/20/2018 6:59 Results for this PM CHARGE ATTENDANT procedure are in the results section. LIPASE LEVEL STAT 08/20/2018 6:59 Results for this PM CHARGE ATTENDANT procedure are in the results section. AMYLASE LEVEL STAT 08/20/2018 6:59 Results for this PM CHARGE ATTENDANT procedure are in the results section. URINE CULTURE STAT 08/20/2018 6:54 Results for this PM CHARGE ATTENDANT procedure are in the results section. SD CRITICAL CARE, E/M Routine 08/20/2018 6:33 Results for this 30-74 MINUTES PM CHARGE ATTENDANT procedure are in the results section. AMMONIA LEVEL STAT 08/20/2018 6:07 Results for this PM CHARGE ATTENDANT procedure are in the results section. ESTIMATED GFR STAT 08/20/2018 6:07 Results for this PM CHARGE ATTENDANT procedure are in the results section. MAGNESIUM LEVEL STAT 08/20/2018 6:07 Results for this PM CHARGE ATTENDANT procedure are in the results section. LACTIC ACID LEVEL, STAT 08/20/2018 6:07 Results for this SEPSIS - NOW AND REPEAT PM CHARGE ATTENDANT procedure are in 2X EVERY 3 HOURS the results section. PHOSPHORUS LEVEL STAT 08/20/2018 6:07 Results for this PM CHARGE ATTENDANT procedure are in the results section. HEPATIC FUNCTION PANEL STAT 08/20/2018 6:07 Results for this PM CHARGE ATTENDANT procedure are in the results section. PROTHROMBIN TIME WITH STAT 08/20/2018 6:07 Results for this INR PM CHARGE ATTENDANT procedure are in the results section. PARTIAL THROMBOPLASTIN STAT 08/20/2018 6:07 Results for this TIME (PTT) PM CHARGE ATTENDANT procedure are in the results section. B NATRIURETIC PEPTIDE STAT 08/20/2018 6:07 Results for this PM CHARGE ATTENDANT procedure are in the results section. TROPONIN STAT 08/20/2018 6:07 Results for this PM CHARGE ATTENDANT procedure are in the results section. COMPREHENSIVE METABOLIC STAT 08/20/2018 6:07 Results for this PANEL PM CHARGE ATTENDANT procedure are in the results section. HC COMPLETE BLD COUNT STAT 08/20/2018 6:07 Results for this W/AUTO DIFF PM CHARGE ATTENDANT procedure are in the results section. BLOOD CULTURE, AEROBIC Routine 08/20/2018 6:05 Results for this & ANAEROBIC PM CHARGE ATTENDANT procedure are in the results section. XR CHEST 1 VW PORTABLE STAT 08/20/2018 5:49 Results for this PM CHARGE ATTENDANT procedure are in the results section. TYPE AND SCREEN Routine 08/20/2018 5:44 Results for this PM CHARGE ATTENDANT procedure are in the results section. ECG 12-LEAD STAT 08/20/2018 5:37 Results for this PM CHARGE ATTENDANT procedure are in the results section. BENZODIAZEPINES, S/P, Routine 08/20/2018 2:50 Results for this QUANT PM CHARGE ATTENDANT procedure are in the results section. ESTIMATED GFR Routine 08/20/2018 2:50 Results for this PM CHARGE ATTENDANT procedure are in the results section. NICOTINE AND Routine 08/20/2018 2:50 [facility] (nonalcoholic Results for this METABOLITES, SERUM PM CHARGE ATTENDANT steatohepatitis) procedure are in S/P TIPS the results (transjugular section. intrahepatic portosystemic shunt) Other hypervolemia DRUG KIM 9, SER/THAIS, Routine 08/20/2018 2:50 [facility] (nonalcoholic Results for this SCRN W/RFLX TO CONF PM CHARGE ATTENDANT steatohepatitis) procedure are in S/P TIPS the results (transjugular section. intrahepatic portosystemic shunt) Other hypervolemia PHOSPHORUS LEVEL Routine 08/20/2018 2:50 [facility] (nonalcoholic Results for this PM CHARGE ATTENDANT steatohepatitis) procedure are in S/P TIPS the results (transjugular section. intrahepatic portosystemic shunt) Other hypervolemia MAGNESIUM LEVEL Routine 08/20/2018 2:50 [facility] (nonalcoholic Results for this PM CHARGE ATTENDANT steatohepatitis) procedure are in S/P TIPS the results (transjugular section. intrahepatic portosystemic shunt) Other hypervolemia ALPHA FETOPROTEIN Routine 08/20/2018 2:50 [facility] (nonalcoholic Results for this PM CHARGE ATTENDANT steatohepatitis) procedure are in S/P TIPS the results (transjugular section. intrahepatic portosystemic shunt) Other hypervolemia HC COMPLETE BLD COUNT Routine 08/20/2018 2:50 [facility] (nonalcoholic Results for this W/AUTO DIFF PM CHARGE ATTENDANT steatohepatitis) procedure are in S/P TIPS the results (transjugular section. intrahepatic portosystemic shunt) Other hypervolemia PARTIAL THROMBOPLASTIN Routine 08/20/2018 2:50 [facility] (nonalcoholic Results for this TIME (PTT) PM CHARGE ATTENDANT steatohepatitis) procedure are in S/P TIPS the results (transjugular section. intrahepatic portosystemic shunt) Other hypervolemia PROTHROMBIN TIME WITH Routine 08/20/2018 2:50 [facility] (nonalcoholic Results for this INR PM CHARGE ATTENDANT steatohepatitis) procedure are in S/P TIPS the results (transjugular section. intrahepatic portosystemic shunt) Other hypervolemia HEPATIC FUNCTION PANEL Routine 08/20/2018 2:50 [facility] (nonalcoholic Results for this PM CHARGE ATTENDANT steatohepatitis) procedure are in S/P TIPS the results (transjugular section. intrahepatic portosystemic shunt) Other hypervolemia BASIC METABOLIC PANEL Routine 08/20/2018 2:50 [facility] (nonalcoholic Results for this PM CHARGE ATTENDANT steatohepatitis) procedure are in S/P TIPS the results (transjugular section. intrahepatic portosystemic shunt) Other hypervolemia CLOSTRIDIUM DIFFICILE Routine 07/10/2018 11:02 Results for this TOXIN AM CHARGE ATTENDANT procedure are in the results section. ESTIMATED GFR Routine 07/10/2018 6:06 Results for this AM CHARGE ATTENDANT procedure are in the results section. PROTHROMBIN TIME WITH Routine 07/10/2018 6:06 Results for this INR AM CHARGE ATTENDANT procedure are in the results section. PHOSPHORUS LEVEL Routine 07/10/2018 6:06 Results for this AM CHARGE ATTENDANT procedure are in the results section. HEPATIC FUNCTION PANEL Routine 07/10/2018 6:06 Results for this AM CHARGE ATTENDANT procedure are in the results section. MAGNESIUM LEVEL Routine 07/10/2018 6:06 Results for this AM CHARGE ATTENDANT procedure are in the results section. HC COMPLETE BLD COUNT Routine 07/10/2018 6:06 Results for this W/AUTO DIFF AM CHARGE ATTENDANT procedure are in the results section. BASIC METABOLIC PANEL Routine 07/10/2018 6:06 Results for this AM CHARGE ATTENDANT procedure are in the results section. NM HEPATOBILIARY Routine 07/09/2018 2:24 Results for this PM CHARGE ATTENDANT procedure are in the results section. LIPASE LEVEL Routine 07/09/2018 5:35 Results for this AM CHARGE ATTENDANT procedure are in the results section. AMYLASE LEVEL Routine 07/09/2018 5:35 Results for this AM CHARGE ATTENDANT procedure are in the results section. ESTIMATED GFR Routine 07/09/2018 5:35 Results for this AM CHARGE ATTENDANT procedure are in the results section. PROTHROMBIN TIME WITH Routine 07/09/2018 5:35 Results for this INR AM CHARGE ATTENDANT procedure are in the results section. PHOSPHORUS LEVEL Routine 07/09/2018 5:35 Results for this AM CHARGE ATTENDANT procedure are in the results section. HEPATIC FUNCTION PANEL Routine 07/09/2018 5:35 Results for this AM CHARGE ATTENDANT procedure are in the results section. MAGNESIUM LEVEL Routine 07/09/2018 5:35 Results for this AM CHARGE ATTENDANT procedure are in the results section. HC COMPLETE BLD COUNT Routine 07/09/2018 5:35 Results for this W/AUTO DIFF AM CHARGE ATTENDANT procedure are in the results section. BASIC METABOLIC PANEL Routine 07/09/2018 5:35 Results for this AM CHARGE ATTENDANT procedure are in the results section. US ABDOMINAL DOPPLER Routine 07/08/2018 6:06 Results for this PM CHARGE ATTENDANT procedure are in the results section. CT ABDOMEN PELVIS W Routine 07/08/2018 11:07 Results for this CONTRAST AM CHARGE ATTENDANT procedure are in the results section. ESTIMATED GFR Routine 07/08/2018 5:59 Results for this AM CHARGE ATTENDANT procedure are in the results section. PROTHROMBIN TIME WITH Routine 07/08/2018 5:59 Results for this INR AM CHARGE ATTENDANT procedure are in the results section. PHOSPHORUS LEVEL Routine 07/08/2018 5:59 Results for this AM CHARGE ATTENDANT procedure are in the results section. MAGNESIUM LEVEL Routine 07/08/2018 5:59 Results for this AM CHARGE ATTENDANT procedure are in the results section. LDH Routine 07/08/2018 5:59 Results for this AM CHARGE ATTENDANT procedure are in the results section. LACTIC ACID LEVEL Routine 07/08/2018 5:59 Results for this AM CHARGE ATTENDANT procedure are in the results section. IONIZED CALCIUM Routine 07/08/2018 5:59 Results for this AM CHARGE ATTENDANT procedure are in the results section. HEPATIC FUNCTION PANEL Routine 07/08/2018 5:59 Results for this AM CHARGE ATTENDANT procedure are in the results section. FIBRINOGEN Routine 07/08/2018 5:59 Results for this AM CHARGE ATTENDANT procedure are in the results section. HC COMPLETE BLD COUNT Routine 07/08/2018 5:59 Results for this W/AUTO DIFF AM CHARGE ATTENDANT procedure are in the results section. BASIC METABOLIC PANEL Routine 07/08/2018 5:59 Results for this AM CHARGE ATTENDANT procedure are in the results section. US GALLBLADDER STAT 07/07/2018 4:50 Results for this PM CHARGE ATTENDANT procedure are in the results section. LACTIC ACID LEVEL Routine 07/07/2018 2:35 Results for this PM CHARGE ATTENDANT procedure are in the results section. ESTIMATED GFR Routine 07/07/2018 6:24 Results for this AM CHARGE ATTENDANT procedure are in the results section. PROTHROMBIN TIME WITH Routine 07/07/2018 6:24 Results for this INR AM CHARGE ATTENDANT procedure are in the results section. PHOSPHORUS LEVEL Routine 07/07/2018 6:24 Results for this AM CHARGE ATTENDANT procedure are in the results section. MAGNESIUM LEVEL Routine 07/07/2018 6:24 Results for this AM CHARGE ATTENDANT procedure are in the results section. LDH Routine 07/07/2018 6:24 Results for this AM CHARGE ATTENDANT procedure are in the results section. LACTIC ACID LEVEL Routine 07/07/2018 6:24 Results for this AM CHARGE ATTENDANT procedure are in the results section. IONIZED CALCIUM Routine 07/07/2018 6:24 Results for this AM CHARGE ATTENDANT procedure are in the results section. HEPATIC FUNCTION PANEL Routine 07/07/2018 6:24 Results for this AM CHARGE ATTENDANT procedure are in the results section. FIBRINOGEN Routine 07/07/2018 6:24 Results for this AM CHARGE ATTENDANT procedure are in the results section. HC COMPLETE BLD COUNT Routine 07/07/2018 6:24 Results for this W/AUTO DIFF AM CHARGE ATTENDANT procedure are in the results section. BASIC METABOLIC PANEL Routine 07/07/2018 6:24 Results for this AM CHARGE ATTENDANT procedure are in the results section. LACTIC ACID, SYRINGE Routine 07/06/2018 12:59 Results for this PM CHARGE ATTENDANT procedure are in the results section. ARTERIAL BLOOD GAS Routine 07/06/2018 12:59 Results for this PM CHARGE ATTENDANT procedure are in the results section. POC GLUCOSE Routine 07/06/2018 12:23 Results for this PM CHARGE ATTENDANT procedure are in the results section. ESTIMATED GFR Routine 07/06/2018 9:39 Results for this AM CHARGE ATTENDANT procedure are in the results section. PHOSPHORUS LEVEL Routine 07/06/2018 9:39 Results for this AM CHARGE ATTENDANT procedure are in the results section. MAGNESIUM LEVEL Routine 07/06/2018 9:39 Results for this AM CHARGE ATTENDANT procedure are in the results section. BASIC METABOLIC PANEL Routine 07/06/2018 9:39 Results for this AM CHARGE ATTENDANT procedure are in the results section. POC GLUCOSE Routine 07/06/2018 8:02 Results for this AM CHARGE ATTENDANT procedure are in the results section. POC GLUCOSE Routine 07/06/2018 5:29 Results for this AM CHARGE ATTENDANT procedure are in the results section. ESTIMATED GFR Routine 07/06/2018 12:12 Results for this AM CHARGE ATTENDANT procedure are in the results section. PROTHROMBIN TIME WITH Routine 07/06/2018 12:12 Results for this INR AM CHARGE ATTENDANT procedure are in the results section. PHOSPHORUS LEVEL Routine 07/06/2018 12:12 Results for this AM CHARGE ATTENDANT procedure are in the results section. MAGNESIUM LEVEL Routine 07/06/2018 12:12 Results for this AM CHARGE ATTENDANT procedure are in the results section. LDH Routine 07/06/2018 12:12 Results for this AM CHARGE ATTENDANT procedure are in the results section. LACTIC ACID LEVEL Routine 07/06/2018 12:12 Results for this AM CHARGE ATTENDANT procedure are in the results section. IONIZED CALCIUM Routine 07/06/2018 12:12 Results for this AM CHARGE ATTENDANT procedure are in the results section. HEPATIC FUNCTION PANEL Routine 07/06/2018 12:12 Results for this AM CHARGE ATTENDANT procedure are in the results section. FIBRINOGEN Routine 07/06/2018 12:12 Results for this AM CHARGE ATTENDANT procedure are in the results section. HC COMPLETE BLD COUNT Routine 07/06/2018 12:12 Results for this W/AUTO DIFF AM CHARGE ATTENDANT procedure are in the results section. BASIC METABOLIC PANEL Routine 07/06/2018 12:12 Results for this AM CHARGE ATTENDANT procedure are in the results section. POC GLUCOSE Routine 07/05/2018 8:50 Results for this PM CHARGE ATTENDANT procedure are in the results section. POC GLUCOSE Routine 07/05/2018 4:12 Results for this PM CHARGE ATTENDANT procedure are in the results section. LACTIC ACID LEVEL Routine 07/05/2018 2:45 Results for this PM CHARGE ATTENDANT procedure are in the results section. POC GLUCOSE Routine 07/05/2018 1:03 Results for this PM CHARGE ATTENDANT procedure are in the results section. POC GLUCOSE Routine 07/05/2018 8:14 Results for this AM CHARGE ATTENDANT procedure are in the results section. TYPE AND SCREEN Routine 07/05/2018 5:40 Results for this AM CHARGE ATTENDANT procedure are in the results section. PARTIAL THROMBOPLASTIN STAT 07/05/2018 5:40 Results for this TIME (PTT) AM CHARGE ATTENDANT procedure are in the results section. PROTHROMBIN TIME WITH STAT 07/05/2018 5:40 Results for this INR AM CHARGE ATTENDANT procedure are in the results section. FIBRINOGEN STAT 07/05/2018 5:40 Results for this AM CHARGE ATTENDANT procedure are in the results section. HC COMPLETE BLD COUNT STAT 07/05/2018 5:40 Results for this W/AUTO DIFF AM CHARGE ATTENDANT procedure are in the results section. ESTIMATED GFR STAT 07/05/2018 5:24 Results for this AM CHARGE ATTENDANT procedure are in the results section. MAGNESIUM LEVEL STAT 07/05/2018 5:24 Results for this AM CHARGE ATTENDANT procedure are in the results section. PHOSPHORUS LEVEL STAT 07/05/2018 5:24 Results for this AM CHARGE ATTENDANT procedure are in the results section. LDH STAT 07/05/2018 5:24 Results for this AM CHARGE ATTENDANT procedure are in the results section. LACTIC ACID LEVEL STAT 07/05/2018 5:24 Results for this AM CHARGE ATTENDANT procedure are in the results section. IONIZED CALCIUM STAT 07/05/2018 5:24 Results for this AM CHARGE ATTENDANT procedure are in the results section. HEPATIC FUNCTION PANEL STAT 07/05/2018 5:24 Results for this AM CHARGE ATTENDANT procedure are in the results section. BASIC METABOLIC PANEL STAT 07/05/2018 5:24 Results for this AM CHARGE ATTENDANT procedure are in the results section. CT ABD/PELVIC EXTERNAL Routine 07/05/2018 12:42 Results for this STUDY AM CHARGE ATTENDANT procedure are in the results section. CT CHEST WO CONTRAST Routine 04/25/2018 11:36 [...] SPECTRAL COLOR DOPPLER Awaiting liver the results (99329) transplant section. Cancer screening Lesion of liver [...] with ascites Awaiting liver transplant Cancer screening after 12/30/[address] Renal Stone Protocol (12/25/2018 9:34 PM CDT) Specimen Narrative Performed At Examination:CT RENAL STONE PROTOCOL [facility] Clinical History: Flank painstone disease suspected Comparison: None. Findings: CT scans are performed using radiation dose reduction techniques.Technical factors are evaluated and adjusted to ensure appropriate moderation of exposure.Automated dose management technology is applied to adjust radiation exposure while achieving a diagnostic quality image. CT imaging was performed with iterative reconstruction techniques and/or automated exposure control to reduce radiation dose. CT scan of the abdomen and pelvis was performed without intravenous contrast. The liver is slightly nodular in contour. The spleen is slightly enlarged measuring 14.3 cm. The pancreas and adrenal glands are unremarkable. TIPS stent is noted. The patient is status post cholecystectomy. There is a left renal cyst noted measuring 5.5 cm. Right kidney shows an intrarenal calculus measuring 1 mm. No right hydronephrosis is seen. There is also a left intrarenal calculus measuring 3 mm. The appendix is not visualized. No bowel thickening or fat stranding is seen. No bowel dilatation is seen. No free air or fluid is seen. Bladder is unremarkable. The visualized lung bases are clear. IMPRESSION: 1. Moderate fecal material throughout the colon but no evidence for bowel obstruction. 2. Bilateral nonobstructing intrarenal calculus. 3. 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 [facility]-[id number] Procedure Note Interface, Radiology Results Incoming - 12/25/2018 9:49 PM CDT Examination: CT RENAL STONE PROTOCOL Clinical History: Flank pain stone disease suspected Comparison: None. Findings: CT scans are performed using radiation dose reduction techniques. Technical factors are evaluated and adjusted to ensure appropriate moderation of exposure. Automated dose management technology is applied to adjust radiation exposure while achieving a diagnostic quality image. CT imaging was performed with iterative reconstruction techniques and/or automated exposure control to reduce radiation dose. CT scan of the abdomen and pelvis was performed without intravenous contrast. The liver is slightly nodular in contour. The spleen is slightly enlarged measuring 14.3 cm. The pancreas and adrenal glands are unremarkable. TIPS stent is noted. The patient is status post cholecystectomy. There is a left renal cyst noted measuring 5.5 cm. Right kidney shows an intrarenal calculus measuring 1 mm. No right hydronephrosis is seen. There is also a left intrarenal calculus measuring 3 mm. The appendix is not visualized. No bowel thickening or fat stranding is seen. No bowel dilatation is seen. No free air or fluid is seen. Bladder is unremarkable. The visualized lung bases are clear. IMPRESSION: 1. Moderate fecal material throughout the colon but no evidence for bowel obstruction. 2. Bilateral nonobstructing intrarenal calculus. 3. 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 [facility]-[id number] Performing Organization Address [facility] Phone Number [facility] [address] [place] [address] Urinalysis (12/25/2018 8:27 PM CDT) Pathologist [facility] Glucose, UA Negative Negative [facility] Bilirubin, UA Negative Negative [facility] Ketones, UA Negative Negative [facility] Specific gravity, UA 1.015 1.001 - 1.035 [facility] Blood, UA Trace (A) Negative [facility] pH, UA 7.0 5.0 - 8.5 [facility] Protein, UA Negative Negative [facility] Urobilinogen, UA <2.[address] [facility] Nitrite, UA Negative Negative [facility] Leukocyte esterase, Negative Negative [facility] UA [facility] Color, UA Yellow [facility] Appearance, UA Clear [facility] Specimen Urine Performing Organization Address [facility] Phone Number DEPARTMENT OF PATHOLOGY AND [address] [place] [address] GENOMIC MEDICINE, [address] Estimated GFR (12/25/2018 8:20 PM CDT)Only the most recent of25 resultswithin the time period is included. Pathologist [facility] Estimated GFR 62 mL/min/1.73 CATRACHO MARQUEZ Comment: m2 [place] CatergoryUnitsInterpretation EMERGENCY CARE G1 >=90 Normal or high CENTER G2 60-89Mildly decreased [id number] to moderately decreased [id number] to severely decreased G4 15-29Severely decreased G5 <15Kidney failure The eGFR was calculated using the Chronic Kidney Disease Epidemiology Collaboration (CKD-EPI) equation. Interpretation is based on recommendations of the National Kidney Foundation-Kidney Disease Outcomes Quality Initiative (NKF-KDOQI) published in 2014. Specimen Plasma specimen Performing Organization Address City/State/Zipcode Phone Number DEPARTMENT OF PATHOLOGY AND [address] [place] [address] [place] [address] [facility] [place] CBC with platelet and differential (12/25/2018 8:20 PM CDT)Only the most recent of27 resultswithin the time period is included. WBC 6.25 4.50 - 11.00 k/uL [facility] RBC 3.55 (L) 4.20 - 5.50 m/uL [facility] HGB 9.8 (L) 12.0 - 16.0 g/dL [facility] HCT 30.5 (L) 37.0 - 47.0 % [facility] MCV 85.9 82.0 - 100.[address] [facility] MCH 27.6 27.0 - 34.[address] [facility] MCHC 32.1 31.0 - 37.0 g/dL [facility] RDW - SD 55.5 (H) 37.0 - 55.[address] [facility] MPV 10.5 8.8 - 13.[address] [facility] Platelet count 115 (L) 150 - 400 k/uL [facility] Neutrophils 66.5 39.0 - 69.0 % [facility] Lymphocytes 18.6 (L) 25.0 - 45.0 % [facility] Monocytes 10.9 (H) 0.0 - 10.0 % [facility] Eosinophils 3.2 0.0 - 5.0 % [facility] Basophils 0.8 0.0 - 1.0 % [facility] Specimen Blood Performing Organization Address City/[facility]/Zipcode Phone Number DEPARTMENT OF PATHOLOGY AND [address] [place] [address] Comprehensive metabolic panel (12/25/2018 8:20 PM CDT)Only the most recent of3 resultswithin the time period is included. Sodium 143 128 - 145 mEq/L [facility] Potassium 3.7 3.6 - 5.1 mEq/L [facility] CO2 27 18 - 33 mEq/L [facility] Chloride 106 98 - 108 mEq/L [facility] Glucose 101 73 - 118 mg/dL [facility] Calcium 8.9 8.0 - 10.3 mg/dL [facility] BUN 19 7 - 22 mg/dL [facility] Creatinine 1.0 (H) 0.5 - 0.9 mg/dL [facility] Alkaline phosphatase 82 42 - 141 U/L [facility] ALT 22 10 - 47 U/L [facility] AST 31 11 - 38 U/L [facility] Total bilirubin 1.3 0.2 - 1.6 mg/dL [facility] Albumin 3.3 3.3 - 5.5 g/dL [facility] Protein 6.8 6.4 - 8.1 g/dL [facility] Anion gap 10@ANIO 7 - 15 mEq/L [facility] A/G ratio 0.9 0.7 - 3.8 [facility] Specimen Plasma specimen Performing Organization Address [facility]/State/Zipcode Phone Number DEPARTMENT OF PATHOLOGY AND [address] [place] [address] Phosphorus level (11/18/2018 4:00 AM CDT)Only the most recent of22 resultswithin the time period is included. Phosphorus 2.4 2.4 - 4.5 mg/dL [facility] Specimen Plasma specimen Performing Organization Address City/[facility] Phone Number [facility] DEPARTMENT OF PATHOLOGY AND [address] [place] [phone] [place] [phone] Magnesium level (11/18/2018 4:00 AM CDT)Only the most recent of22 resultswithin the time period is included. Magnesium 1.4 (L) 1.6 - 2.6 mg/dL [facility] Specimen Plasma specimen Performing Organization Address [facility] Phone Number [facility] DEPARTMENT OF PATHOLOGY AND [address] [place] [phone] [place] [phone] Hepatic function panel (11/18/2018 4:00 AM CDT)Only the most recent of23 resultswithin the time period is included. Albumin 3.7 3.5 - 5.0 g/dL [facility] Total bilirubin 2.5 (H) 0.0 - 1.2 [facility] mg/dL HOSPITAL Bilirubin direct 1.5 (H) 0.0 - 0.3 [facility] mg/dL [facility] Alkaline phosphatase 88 35 - 104 U/L [facility] Protein 6.0 (L) 6.3 - 8.3 g/dL [facility] Comment: HOSPITAL [place] 4.6-7.0 g/dL 1 week 4.4-7.6 g/dL 7 months-1year5.1-7.3 g/dL 1-2 years5.6-7.5 g/dL >3 years6.0-8.0 g/dL 18-150 6.3-8.3 g/dL ALT 18 5 - 50 U/L [facility] AST 32 10 - 35 U/L [facility] Specimen Plasma specimen Performing Organization Address [facility] Phone Number [facility] DEPARTMENT OF PATHOLOGY AND [address] [place] [phone] Basic metabolic panel (11/18/2018 4:00 AM CDT)Only the most recent of23 resultswithin the time period is included. Sodium 142 135 - 148 mEq/L [facility] Potassium 3.8 3.5 - 5.0 mEq/L [facility] Chloride 108 98 - 112 mEq/L [facility] CO2 21 (L) 24 - 31 mEq/L [facility] Anion gap 13@ANIO 7 - 15 mEq/L [facility] BUN 9 6 - 20 mg/dL [facility] Creatinine 1.18 (H) 0.50 - 0.90 mg/dL [facility] Glucose 117 (H) 65 - 99 mg/dL [facility] Calcium 8.5 8.3 - 10.2 mg/dL [facility] Specimen Plasma specimen Performing Organization Address City/State/Zipcode Phone Number [facility] DEPARTMENT OF PATHOLOGY AND [address] [place] [address] Prothrombin time with INR (11/18/2018 3:40 AM CDT)Only the most recent of24 resultswithin the time period is included. Prothrombin time 17.7 (H) 11.5 - 14.5 [facility] INR 1.5 [facility] Comment: [facility] Normalized Ratio (INR) is a therapeutic HOSPITAL monitoring tool for patients who are stable on oral anticoagulant therapy. An INR of 2.0-3.0 is suggested for deep vein thrombosis/pulmonary embolism. Specimen Blood Performing Organization Address City/[facility]/Zipcode Phone Number [facility] DEPARTMENT OF PATHOLOGY AND [address] [place] [address] Surgical pathology request (11/17/2018 8:49 AM CDT) [facility] DEPARTMENT OF PATHOLOGY AND GENOMIC MEDICINE Surgical pathology See link below [facility] DEPARTMENT OF report for PDF Lab PATHOLOGY AND Report GENOMIC MEDICINE Result status This is Final [facility] DEPARTMENT OF Report for PATHOLOGY AND [id number] GENOMIC MEDICINE Specimen Performing Organization Address City/[facility]/Zipcode Phone Number [facility] DEPARTMENT OF PATHOLOGY AND [address] [place] [address] GENOMIC MEDICINE Smear review (11/16/2018 8:00 AM CDT)Only the most recent of4 resultswithin the time period is included. Platelet slide review Mkd decreased (A) [facility] Anisocytosis Moderate [facility] Polychromasia Moderate [facility] Ovalocytes Moderate [facility] Specimen Performing Organization Address City/State/Zipcode Phone Number [facility] DEPARTMENT OF PATHOLOGY AND [address] [place] [phone] [place] [phone] Ammonia level (11/15/2018 5:55 AM CDT)Only the most recent of2 resultswithin the time period is included. Ammonia 111 (H) 11 - 51 umol/L [facility] Specimen Blood Performing Organization Address City/State/Zipcode Phone Number [facility] DEPARTMENT OF PATHOLOGY AND [address] [place] [phone] [place] [phone] Urine culture (11/15/2018 5:20 AM CDT)Only the most recent of4 resultswithin the time period is included. Pathologist [facility] Urine culture SEE COMMENTComment: [facility] Bacteriuria screen HOSPITAL negative. Specimen Performing Organization Address City/[facility] Phone Number [facility] DEPARTMENT OF PATHOLOGY AND [address] [place] [phone] [place] [phone] Urinalysis screen and microscopy, with reflex to culture (11/15/2018 5:00 AM CDT)Only the most recent of4 resultswithin the time period is included. Specimen site Clean catch [facility] Color, UA [place] [facility] Appearance, UA Clear [facility] Specific gravity, 1.017 1.001 - 1.035 [facility] pH, UA 5.0 5.0 - 8.5 [facility] Protein, UA Negative Negative [facility] Glucose, UA Negative Negative [facility] Ketones, UA Negative Negative [facility] Bilirubin, UA Negative Negative [facility] Blood, UA Negative Negative [facility] Nitrite, UA Negative Negative [facility] Urobilinogen, UA FootnoteComment: <2.0 [facility] to HOSPITAL report. Leukocyte esterase, Negative Negative [facility] Epithelial cells, 4 /HPF [facility] WBC, UA 1 0 - 4 /HPF [facility] RBC, UA <1 0 - 5 /HPF [facility] Bacteria, UA Few None seen [facility] Yeast, UA None seen [facility] Yeast with None seen [facility] pseudohyphae, UA HOSPITAL Specimen Urine Performing Organization Address [facility] Phone Number [facility] DEPARTMENT OF PATHOLOGY AND [address] [place] [phone] GENOMIC MEDICINE [address] [address] XR Chest 1 Vw Portable (11/14/2018 5:32 PM CDT)Only the most recent of2 resultswithin the time period is included. Specimen Narrative Performed At EXAMINATION:XR CHEST 1 VW PORTABLE [facility] CLINICAL HISTORY: 58 years Femalefever COMPARISON:10/01/2018 IMPRESSION: No acute cardiopulmonary disease. FINDINGS: The cardiomediastinal silhouette, lungs, and regional skeletal structures are within normal limits for age. [facility]-[id number] Procedure Note Hm Interface, Radiology Results Incoming - 11/14/2018 6:21 PM CDT EXAMINATION: XR CHEST 1 VW PORTABLE CLINICAL HISTORY: 58 years Female fever COMPARISON: 10/01/2018 IMPRESSION: No acute cardiopulmonary disease. FINDINGS: The cardiomediastinal silhouette, lungs, and regional skeletal structures are within normal limits for age. [facility]-[id number] Performing Organization Address City/[facility] Phone Number [facility] [address] [place] [phone] Prepare RBC, 1 Units (11/14/2018 5:30 AM CDT) Product name Red Cells AS1 [facility] [facility] Unit number [id number] [facility] Product code [id number] [facility] Dispense status Transfused [facility] Blood expiration [id number] [facility] Blood type code 6200 [facility] Blood type A POSITIVE [facility] Specimen Blood Performing Organization Address City/[facility] Phone Number [facility] DEPARTMENT OF PATHOLOGY AND [address] [place] [address] [address] Type and screen (11/14/2018 5:30 AM CDT)Only the most recent of3 resultswithin the time period is included. ABO grouping A [facility] Rh type POS [facility] Antibody screen (gel) NEG [facility] Specimen Blood Performing Organization Address City/[facility]/Zipcode Phone Number [facility] DEPARTMENT OF PATHOLOGY AND [address] [place] [address] GENOMIC MEDICINE [facility] [address] [place] [address] US Renal (11/13/2018 6:19 AM CDT) Specimen Narrative Performed At EXAMINATION:US RENAL [facility] CLINICAL HISTORY:Kidney stonehydronephrosis COMPARISON:None. FINDINGS: Right kidney: Small nonobstructing 5 mm calyceal calcification in the upper pole of the right kidney. No hydronephrosis or masses. There is Normal echogenicity. The right kidney measures 10.1 x 5.9 x 5.1 cm centimeters Left kidney: 4.1 cm cyst in the right kidney. No solid mass hydronephrosis or calculi . There is Normal echogenicity. The left kidney measures 9.5 x 3.5 x 3 centimeters The urinary bladder is unremarkable. IMPRESSION: 4 cm cyst in the left kidney. Scattered subcentimeter cyst in the kidneys Nonobstructing calyceal calcification in the right kidney without evidence of hydronephrosis [facility]-[id number] Procedure Note Interface, Radiology Results Incoming - 11/13/2018 6:36 AM CDT EXAMINATION: US RENAL CLINICAL HISTORY: Kidney stone hydronephrosis COMPARISON: None. FINDINGS: Right kidney: Small nonobstructing 5 mm calyceal calcification in the upper pole of the right kidney. No hydronephrosis or masses. There is Normal echogenicity. The right kidney measures 10.1 x 5.9 x 5.1 cm centimeters Left kidney: 4.1 cm cyst in the right kidney. No solid mass hydronephrosis or calculi . There is Normal echogenicity. The left kidney measures 9.5 x 3.5 x 3 centimeters The urinary bladder is unremarkable. IMPRESSION: 4 cm cyst in the left kidney. Scattered subcentimeter cyst in the kidneys Nonobstructing calyceal calcification in the right kidney without evidence of hydronephrosis [facility]-[id number] Performing Organization Address City/[facility]/Zipcode Phone Number [facility] [address] [place] [address] Blood culture, aerobic & anaerobic (11/13/2018 4:05 AM CDT)Only the most recent of5 resultswithin the time period is included. Blood culture No growth after 5 days of incubation. [facility] isolate Comment: HOSPITAL Specimen Information Specimen Source: Blood Specimen Site: Hand, right Specimen Blood - Hand, right Performing Organization Address City/State/[facility] Phone Number [facility] DEPARTMENT OF PATHOLOGY AND [address] [place] [address] Lactic acid level, SEPSIS - Now and repeat 2x every 3 hours (11/13/2018 4:00 AM CDT)Only the most recent of5 resultswithin the time period is included. Lactic acid 1.5 0.5 - 2.2 mmol/L [facility] Specimen Blood Performing Organization Address [facility] Phone Number [facility] DEPARTMENT OF PATHOLOGY AND [address] [place] [address] Prealbumin level (11/13/2018 4:00 AM CDT)Only the most recent of3 resultswithin the time period is included. Prealbumin 10 (L) 16 - 32 mg/dL [facility] Specimen Serum Performing Organization Address [facility] Phone Number [facility] DEPARTMENT OF PATHOLOGY AND [address] [place] [address] Hemoglobin A1c (11/13/2018 4:00 AM CDT)Only the most recent of3 resultswithin the time period is included. Hemoglobin A1C 4.7 4.0 - 5.6 % [facility] Comment: HOSPITAL HbA1c cutoffs for diagnosing diabetes: 4.0% - 5.6%=normal 5.7% - 6.4%=increased risk for diabetes (prediabetes) >=6.5%=diabetes Goals for glycemic control (ADA 2016) < 7.0%Target for non adults with diabetes. More or less stringent targets may be appropriate for individual patients. <7.5% Target for Children and adolescents with type 1 diabetes. Specimen Blood Performing Organization Address City/[facility]/Zipcode Phone Number [facility] DEPARTMENT OF PATHOLOGY AND [address] [place] [id number] [place] [phone] ECG 12 lead (11/13/2018 3:30 AM CDT)Only the most recent of2 resultswithin the time period is included. Ventricular rate 81 [facility] Atrial rate 81 [facility] SD interval 150 [facility] QRSD interval 80 [facility] QT interval 398 [facility] QTC interval 462 [facility] P axis 1 39 [facility] QRS axis 1 13 H MUSE T wave axis 13 [facility] MUSE EKG impression Normal sinus [facility] MUSE rhythm-Normal ECG-In automated comparison with ECG of 20-AUG-2018 17:37,-No significant change was found- Specimen Narrative Performed At Performing Organization Address City/State/Zipcode Phone Number [facility] MUSE [address] [place] [address] Lipase level (11/12/2018 4:45 PM CDT)Only the most recent of3 resultswithin the time period is included. Lipase 60 13 - 60 U/L [facility] Specimen Plasma specimen Performing Organization Address City/State/Zipcode Phone Number [facility] DEPARTMENT OF PATHOLOGY AND [address] [place], [place] [id number] [address] [address] [place] Gallbladder (11/12/2018 4:30 PM CDT)Only the most recent of2 resultswithin the time period is included. Specimen Narrative Performed At EXAMINATION:US GALLBLADDER [facility] CLINICAL HISTORY:Abd painunspecified COMPARISON:None. FINDINGS: Gallbladder: The gallbladder is slightly distended however without evidence for wall thickening or pericholecystic fluid. The technologist reports a positive sonographic Mi's sign. There are stones within the gallbladder. CBD:5 mm , within normal limits. Portal vein: The portal vein demonstrates normal hepatopedal flow. The portal vein measures 7 mm. TIPS. IMPRESSION: 1.Mild distention gallbladder however without gallbladder wall thickening or pericholecystic fluid. There are stones present within the gallbladder. [id number] Procedure Note Interface, Radiology Results Incoming - 11/12/2018 4:39 PM CDT EXAMINATION: US GALLBLADDER CLINICAL HISTORY: Abd pain unspecified COMPARISON: None. FINDINGS: Gallbladder: The gallbladder is slightly distended however without evidence for wall thickening or pericholecystic fluid. The technologist reports a positive sonographic Mi's sign. There are stones within the gallbladder. CBD: 5 mm , within normal limits. Portal vein: The portal vein demonstrates normal hepatopedal flow. The portal vein measures 7 mm. TIPS. IMPRESSION: 1. Mild distention gallbladder however without gallbladder wall thickening or pericholecystic fluid. There are stones present within the gallbladder. [id number] Performing Organization Address City/State/Zipcode Phone Number [facility] [address] [place] [address] Echocardiogram complete w contrast and 3D if needed (11/05/2018 4:25 PM CDT) Specimen Narrative Performed At [facility] Echocardiography Report [address] [facility], [facility] [address], [place] [address] Pat.Name:Rita BARRON.ID:[id number] .Date: 11/05/2018 Refer.MD:CALOS GARCIA MD Exam Time: 3:48:00 PMStudy Type:Routine Echo Height:59inBSA: 1.83 m2 DOBAge:1960,58Y Sex: FEMALE BP:121/59HR: 95 bpm Sonogrphr: Suzie Vernon RDCS, Janelle Mills RDCS, RVT Pat. Stat.:Outpatient Study Status:Final Echo Event ID:[id number] Order ID:[id number] Reason for Study:Awaiting liver transplant [Z76.82 (ICD-10-CM)]; , Liver Transplant Evaluation, Cancer Screening History / Clinical:Edema, Cirrhosis Procedures:2D Echo, Colorflow Doppler, Strain, Intravenous Saline Contrast Race:C SUMMARY: LV EF is hyperdynamic. RV systolic function is normal. FINDINGS: LV: LV size is normal. LV EF is hyperdynamic. Overall wall motionis hyperdynamic. Estimated EF is >70%. RV: RV size is normal. RV systolic function is normal. LA: LA volume is moderately to severely enlarged. RA: RA size is normal. AO: Aortic root diameter is normal. GERA: No pericardial effusion. Cntrst: No intracardiac shunt detected. AV: Aortic valve not well seen. MV: Mild mitral annular calcification. Mild mitral regurgitation. PV: Pulmonic valve not well seen. TV: No structural TV abnormalities noted. A trace of tricuspid regurgitation Ruano: LV relaxation is reduced, appropriate for age. LV filling pressureis normal. Other:Suboptimal/insufficient TR jet. Estimated PA systolic pressureis at least 30 mmHg, assuming a mean RAP of 5 mmHg. MEASUREMENTS: 2D Parasternal Long [place] LVOT 1.7 cmAo An1.7 cm LVIDd4.3 cmIndex2.3 cm/m Ao Rtd 2.8 cm Index1.6 cm/m LVIDs3.4 cmLV Mass 91.8 g(87-129) IVSd 0.8 cmLVM Index 50.2 g/m2 LVPWd0.6 cmRWT0.3 LA Ds3.8 cm LA Sng Plane LA Area 26.4 cm2(8.8-23.4) LA Vol92.7 ml Index50.6 ml/m LA LngAx 6.4 cm DOPPLER LVOT Stroke Vol LVOT 1.7 cmLVOT CO6.7 l/min LVOT TVI33.3 cmLVOT CI3.6 l/m/m2 LVOT Tm295 fodsJY96 bpm LVOT SV 75.6 ml Signed 11/06/2018 08:25 AM Jairo Pina MD Procedure Note Interface, Radiology Results In - 11/06/2018 8:26 AM CDT Echocardiography Report [address] [place] [address] Pat.Name: BELLA BARRON.ID: [id number] .Date: 11/05/2018 Refer.MD: CALOS GARCIA MD Exam Time: 3:48:00 PM Study Type:Routine Echo Height: 59in BSA: 1.83 m2 Age: 11 1960,58Y Sex: FEMALE BP: 121/59 HR: 95 bpm Sonogrphr: Suzie Vernon RDCS, Janelle Mills RDCS, RVT Pat. Stat.:Outpatient Study Status:Final Echo Event ID:[id number] Order ID: [id number] Reason for Study:Awaiting liver transplant [Z76.82 (ICD-10-CM)]; , Liver Transplant Evaluation, Cancer Screening History / Clinical:Edema, Cirrhosis Procedures:2D Echo, Colorflow Doppler, Strain, Intravenous Saline Contrast Race: C SUMMARY: LV EF is hyperdynamic. RV systolic function is normal. FINDINGS: LV: LV size is normal. LV EF is hyperdynamic. Overall wall motion is hyperdynamic. Estimated EF is >70%. RV: RV size is normal. RV systolic function is normal. LA: LA volume is moderately to severely enlarged. RA: RA size is normal. AO: Aortic root diameter is normal. GERA: No pericardial effusion. Cntrst: No intracardiac shunt detected. AV: Aortic valve not well seen. MV: Mild mitral annular calcification. Mild mitral regurgitation. PV: Pulmonic valve not well seen. TV: No structural TV abnormalities noted. A trace of tricuspid regurgitation Ruano: LV relaxation is reduced, appropriate for age. LV filling pressure is normal. Other: Suboptimal/insufficient TR jet. Estimated PA systolic pressure is at least 30 mmHg, assuming a mean RAP of 5 mmHg. MEASUREMENTS: 2D Parasternal Long [place] LVOT 1.7 cm Ao An 1.7 cm LVIDd 4.3 cm Index 2.3 cm/m Ao Rtd 2.8 cm Index 1.6 cm/m LVIDs 3.4 cm LV Mass 91.8 g (87-129) IVSd 0.8 cm LVM Index 50.2 g/m2 LVPWd 0.6 cm RWT 0.3 LA Ds 3.8 cm LA Sng Plane LA Area 26.4 cm2 (8.8-23.4) LA Vol 92.7 ml Index 50.6 ml/m LA LngAx 6.4 cm DOPPLER LVOT Stroke Vol LVOT 1.7 cm LVOT CO 6.7 l/min LVOT TVI 33.3 cm LVOT CI 3.6 l/m/m2 LVOT Tm 295 msec HR 88 bpm LVOT SV 75.6 ml Signed 11/06/2018 08:25 AM Jairo Pina MD Performing Organization Address City/State/Zipcode Phone Number [facility] [address] [place] [address] MRI Abdomen W Wo Contrast (11/05/2018 3:15 PM CDT)Only the most recent of2 resultswithin the time period is included. Specimen Narrative Performed At EXAMINATION:MRI ABDOMEN W WO CONTRAST [facility] CLINICAL HISTORY:K75.81 Nonalcoholic steatohepatitis (MCFARLANE), Z95.828 Presence of other vascular implants and grafts, HCC Screen TECHNIQUE: Multiplanar multisequence MR images of the abdomen were obtained pre - and post dynamic intravenous administration of Gadolinium.. COMPARISON:MRI abdomen 04/25/2018 IMPRESSION: 1.Motion artifact degrades image quality and decreases sensitivity of exam. 2.Liver is cirrhotic. Early confluent hepatic fibrosis in hepatic segment 8 at the dome. No potentially suspicious lesion is detected on this moderately to markedly motion limited study. 3.A few stones in the gallbladder. Bile ducts, pancreas, adrenal glands and abdominal aorta grossly unremarkable. Spleen enlarged without focal lesion. 4.TIPS bridging the right hepatic portal veins. No acute portal venous system thrombosis is detected. 5.A slightly lobulated 5.5 cm Bosniak 2 cyst in the mid left kidney similar to prior, and simple cysts elsewhere, all subcentimeter. 6.No significant ascites and no definite lymphadenopathy detected within the abdomen on this motion limited study. 7.Visualized bones show no suspicious lesion. SUMMARY: Cirrhosis and portal hypertension without evidence of HCC. Significantly motion limited study. [facility]-[id number] Procedure Note Interface, Radiology Results Incoming - 11/05/2018 5:02 PM CDT EXAMINATION: MRI ABDOMEN W WO CONTRAST CLINICAL HISTORY: K75.81 Nonalcoholic steatohepatitis (MCFARLANE), Z95.828 Presence of other vascular implants and grafts, HCC Screen TECHNIQUE: Multiplanar multisequence MR images of the abdomen were obtained pre - and post dynamic intravenous administration of Gadolinium. . COMPARISON: MRI abdomen 04/25/2018 IMPRESSION: 1. Motion artifact degrades image quality and decreases sensitivity of exam. 2. Liver is cirrhotic. Early confluent hepatic fibrosis in hepatic segment 8 at the dome. No potentially suspicious lesion is detected on this moderately to markedly motion limited study. 3. A few stones in the gallbladder. Bile ducts, pancreas, adrenal glands and abdominal aorta grossly unremarkable. Spleen enlarged without focal lesion. 4. TIPS bridging the right hepatic portal veins. No acute portal venous system thrombosis is detected. 5. A slightly lobulated 5.5 cm Bosniak 2 cyst in the mid left kidney similar to prior, and simple cysts elsewhere, all subcentimeter. 6. No significant ascites and no definite lymphadenopathy detected within the abdomen on this motion limited study. 7. Visualized bones show no suspicious lesion. SUMMARY: Cirrhosis and portal hypertension without evidence of HCC. Significantly motion limited study. [facility]-[id number] Performing Organization Address City/State/Zipcode Phone Number [facility] [address] [place] [address] Nicotine and cotinine, serum (11/05/2018 2:27 PM CDT)Only the most recent of2 resultswithin the time period is included. Pathologist [facility] Nicotine <2.0 0.0 - 1.9 [facility] ng/mL [facility] Cotinine <2.0 0.0 - 1.9 [facility] Comment: ng/mL HOSPITAL This test was developed and its performance characteristics determined by the Department of Pathology and Genomic Medicine, [facility]. Serum nicotine and metabolite cotinine are tested by HPLC tandem mass spectrometry. It has not been cleared or approved by FDA. The laboratory is regulated under CLIA as qualified to perform high-complexity testing. This test is used for clinical purposes. It should not be regarded as investigational or for research. Specimen Blood Performing Organization Address City/State/Zipcode Phone Number [facility] DEPARTMENT OF PATHOLOGY AND [address] [place] [address] Partial thromboplastin time, activated (11/05/2018 2:27 PM CDT)Only the most recent of9 resultswithin the time period is included. [facility] PTT 33.1 23.0 - 36.0 [facility] Comment: [facility] PTT therapeutic range for unfractionated heparin is 61.0-112.0 seconds which corresponds to Anti-Xa 0.3-0.7 U/ml. Specimen Blood Performing Organization Address City/[facility] Phone Number [facility] DEPARTMENT OF PATHOLOGY AND [address] [place] [address] Urine drugs of abuse screen (11/05/2018 2:26 PM CDT)Only the most recent of3 resultswithin the time period is included. [facility] Amphetamine screen, Negative [facility] urine [facility] Barbiturate screen, Positive (A) [facility] urine [facility] Benzodiazepine Negative [facility] screen, urine [facility] Cannabinoid screen, Negative [facility] urine [facility] Cocaine screen, urine Negative [facility] Methadone metabolite Negative [facility] (EDDP), urine [facility] Opiates screen, urine Negative [facility] Oxycodone screen, Negative [facility] urine [facility] Phencyclidine screen, Negative [facility] urine [facility] Tricyclic screen, Negative [facility] urine Comment: HOAHAOISM Drug screen minimum concentration of detectability [facility] Wlztctbfkfkz7507 ng/mL Barbiturates 200 ng/mL Ywmlrwkjdeladrh468 ng/mL Nxbnihb129 ng/mL Sdnhrkkuz287 ng/mL Sucauko291 ng/mL Ynkedzmqs383 ng/mL Phencyclidine 25 ng/mL Qsbehcihczgp12 ng/mL Tvdwtfgzek2247 ng/mL Results are from screening tests and should only be used for medical evaluation. Drug testing for legal purposes requires definitive (or confirmatory) testing methods, which are available upon request. Contact the laboratory if definitive testing is required. Specimen Urine Performing Organization Address City/State/Zipcode Phone Number [facility] DEPARTMENT OF PATHOLOGY AND [address] [place] [phone] [place] [phone] Alpha fetoprotein (11/05/2018 12:40 PM CDT)Only the most recent of4 resultswithin the time period is included. Alpha fetoprotein 1.8 0.0 - 8.3 [facility] Comment: ng/mL HOAHAOISM The Delilah 8000 AFP immunoassay was used. HOSPITAL Results obtained with different assay methods or kits should not be used interchangeably and may be different. Specimen Serum Performing Organization Address [facility] Phone Number [facility] DEPARTMENT OF PATHOLOGY AND [address] [place] [phone] [place] [phone] XR Chest 2 Vw (10/01/2018 7:06 PM CHARGE ATTENDANT) Specimen Narrative Performed At EXAMINATION:XR CHEST 2 VW [facility] CLINICAL HISTORY:58 years Female [facility] COMPARISON:08/20/2018 IMPRESSION: Cardiomediastinal silhouette and pulmonary vasculature are within normal limits.Lungs are clear. Bones are unremarkable. [facility]-[id number] Procedure Note Interface, Radiology Results Incoming - 10/01/2018 7:16 PM CHARGE ATTENDANT EXAMINATION: XR CHEST 2 VW CLINICAL HISTORY:58 years Female [facility] COMPARISON: 08/20/2018 IMPRESSION: Cardiomediastinal silhouette and pulmonary vasculature are within normal limits. Lungs are clear. Bones are unremarkable. [facility]-[id number] Performing Organization Address City/[facility]/Zipcode Phone Number [facility] [address] [place] [address] Respiratory pathogen panel (10/01/2018 5:15 PM CHARGE ATTENDANT) [facility] Respiratory Negative for all pathogens tested: [facility] pathogen panel Negative for Adenovirus HOAHAOISM Negative for Coronavirus HKU1 [facility] Negative for Coronavirus NL63 Negative for Coronavirus 229E Negative for Coronavirus OC43 Negative for Human Metapneumovirus Negative for Rhinovirus/Enterovirus Negative for Influenza A Negative for Influenza A/H1 Negative for Influenza A/H3 Negative for Influenza A/H1-2009 Negative for Influenza B Negative for Parainfluenza Virus 1 Negative for Parainfluenza Virus 2 Negative for Parainfluenza Virus 3 Negative for Parainfluenza Virus 4 Negative for Respiratory Syncytial Virus Negative for Bordetella pertussis Negative for Chlamydophila pneumoniae Negative for Mycoplasma pneumoniae This real-time PCR assay detects the presence of nucleic acids (RNA or DNA) for the respiratory pathogens listed. A result of "Not-detected" does not exclude the possibility of the presence of one or more pathogens at concentrations less than the detectable limits of the assay. Comment: Specimen Information Specimen Source: Nares Specimen Site: Right Specimen Nares - Right Performing Organization Address City/State/Zipcode Phone Number [facility] DEPARTMENT OF PATHOLOGY AND [address] [place] [address] GENOMIC MEDIC[address] [address] Nicotine and metabolites, serum (08/29/2018 1:11 PM CHARGE ATTENDANT)Only the most recent of2 resultswithin the time period is included. [facility] Nicotine <2.0 0.0 - 1.9 [facility] ng/mL [facility] Cotinine 35.7 (H) 0.0 - 1.9 [facility] ng/mL [facility] 9-KN-ttikyrxc SEE COMMENT 0.0 - 4.9 [facility] Comment: ng/mL [facility] This test was developed and its performance characteristics determined by the Department of Pathology and Genomic Medicine, [facility]. Serum nicotine and its metabolites cotinine and 3-ES-bivodmoi are tested by HPLC tandem mass spectrometry. It has not been cleared or approved by FDA. The laboratory is regulated under CLIA as qualified to perform high-complexity testing. This test is used for clinical purposes. It should not be regarded as investigational or for research. Footnote--------- Effective as of 08/27/18, Diagnostic Immunology Laboratory at [facility] will remove 3-hydroxycotinine component in the Serum Nicotine and Metabolites test. The test will still analyze serum nicotine and its major metabolite, cotinine, which is the most sensitive marker to detect nicotine exposure. This change to include only nicotine and cotinine brings our testing in concordance with most other academic medical centers, such as [facility] and [facility]. Specimen Blood Performing Organization Address City/State/Zipcode Phone Number [facility] DEPARTMENT OF PATHOLOGY AND [address] [place] [address] GENOMIC MEDICINE [facility] [address] [place] [address] [place] Hepatic (08/21/2018 7:20 PM CHARGE ATTENDANT) Specimen Narrative Performed At Study[facility] History:cirrhosisrule out portal vein thrombusRUQ pain COMPARISON:Abdominal Doppler July 08, 2018 IMPRESSION: Limited ultrasound of the liver performed. The liver has a coarse echotexture indicating cirrhosis without obvious focal lesions. A TIPS shunt is in place. The tips shunt is patent. Main portal vein is patent with hepatopedal flow. Diameter of the main portal vein is 1 cm. The gallbladder is nondistended with normal wall thickness. Gallstones are present. No surrounding fluid present. No inflammatory changes to suggest cholecystitis. There is no ascites. No effusion in the right chest. [id number] Procedure Note Interface, Radiology Results Incoming - 08/21/2018 7:52 PM CHARGE ATTENDANT Study:US HEPATIC History:cirrhosis rule out portal vein thrombus RUQ pain COMPARISON:Abdominal Doppler July 08, 2018 IMPRESSION: Limited ultrasound of the liver performed. The liver has a coarse echotexture indicating cirrhosis without obvious focal lesions. A TIPS shunt is in place. The tips shunt is patent. Main portal vein is patent with hepatopedal flow. Diameter of the main portal vein is 1 cm. The gallbladder is nondistended with normal wall thickness. Gallstones are present. No surrounding fluid present. No inflammatory changes to suggest cholecystitis. There is no ascites. No effusion in the right chest. [id number] Performing Organization Address City/State/Zipcode Phone Number [facility] [address] [place] [address] Troponin (08/21/2018 4:10 AM CHARGE ATTENDANT)Only the most recent of3 resultswithin the time period is included. Troponin <0.30 0.00 - 0.30 [facility] Comment: ng/mL HOSPITAL 0.30 - 1.49 ng/mlMay indicate increased risk of acute coronary syndrome. >=1.5 ng/mlConsistent with acute myocardial infarction. The diagnostic value of a single normal or non-diagnostic result is questionable.Serial samples at 2-6 hour intervals are required to rule out acute myocardial injury. Specimen Plasma specimen Performing Organization Address City/[facility] Phone Number [facility] DEPARTMENT OF PATHOLOGY AND [address] [place] [id number] [place] [address] Lactic acid level (08/21/2018 4:10 AM CHARGE ATTENDANT)Only the most recent of7 resultswithin the time period is included. Lactic acid 2.4 (H) 0.5 - 2.2 mmol/L [facility] Specimen Plasma specimen Performing Organization Address [facility] Phone Number [facility] DEPARTMENT OF PATHOLOGY AND [address] [place] [address] [address] [place] Lung Ventilation Perfusion (08/20/2018 8:36 PM CHARGE ATTENDANT) Specimen Narrative Performed At CLINICAL HISTORY: r o pechest pain [facility] TECHNIQUE: The patient breathed 15-20 mCi of xenon-133 gas through a closed ventilation system while dynamic imaging of the lungs was performed in the posterior and anterior projections. The patient was then injected with 5 mCi of kyfidleket-93u-TGL intravenously, followed by imaging of the lungs in anterior, posterior, and oblique projections. FINDINGS: Mild, nonsegmental perfusion defects near the aortic arch and right hilum. Ventilation unremarkable. IMPRESSION: Low Probability for pulmonary embolism. ASTRID-METH-PC Procedure Note Interface, Radiology Results Incoming - 08/20/2018 9:52 PM CHARGE ATTENDANT CLINICAL HISTORY: r o pe chest pain TECHNIQUE: The patient breathed 15-20 mCi of xenon-133 gas through a closed ventilation system while dynamic imaging of the lungs was performed in the posterior and anterior projections. The patient was then injected with 5 mCi of [id number]-[id number] intravenously, followed by imaging of the lungs in anterior, posterior, and oblique projections. FINDINGS: Mild, nonsegmental perfusion defects near the aortic arch and right hilum. Ventilation unremarkable. IMPRESSION: Low Probability for pulmonary embolism. ASTRID-METH-PC Performing Organization Address [facility]/Zipcode Phone Number [facility] [address] [place] [address] D-dimer (08/20/2018 6:59 PM CHARGE ATTENDANT) D-dimer 1.18 (H) 0.00 - 0.40 [facility] Comment: ug/mL FEU HOSPITAL Units are ug/ml Fibrinogen Equivalent Unit. When combined with low clinical probability, D-dimer results of less than 0.5 ug/ml FEU have a good negativepredictive value in excluding PE or DVT. For D-dimer results greater than 0.5ug/ml FEU further testing is indicated if PE or DVT is suspectedclinically. Elevated D-dimer results have been reported in DVT, PE, and DIC cases and may indicate the presence of a clot. D-dimer results may be elevated due to old age, , inflammatory diseases, trauma, post-operative states, sepsis, and malignancies. Specimen Blood Performing Organization Address [facility] Phone Number [facility] DEPARTMENT OF PATHOLOGY AND [address] [place] [address] Amylase level (08/20/2018 6:59 PM CHARGE ATTENDANT)Only the most recent of2 resultswithin the time period is included. Amylase 76 28 - 100 U/L [facility] Specimen Plasma specimen Performing Organization Address [facility] Phone Number [facility] DEPARTMENT OF PATHOLOGY AND [address] [place] [address] CRITICAL CARE (08/20/2018 6:33 PM CHARGE ATTENDANT) Narrative Performed At Oniel Putnam MD 08/22/20184:28 AM Critical Care Performed by: Oniel Putnam MD Authorized by: Oniel Putnam MD Critical care provider statement: Critical care time (minutes):37 Critical care time was exclusive of:Separately billable procedures and treating other patients and teaching time Critical care was necessary to treat or prevent imminent or life-threatening deterioration of the following conditions:Renal failure and metabolic crisis Critical care was time spent personally by me on the following activities:Development of treatment plan with patient or surrogate, discussions with consultants, discussions with primary provider, evaluation of patient's response to treatment, examination of patient, obtaining history from patient or surrogate, ordering and performing treatments and interventions, ordering and review of laboratory studies, ordering and review of radiographic studies, pulse oximetry, re-evaluation of patient's condition and review of old charts [place] 'yes' if you are taking over critical care for this patient from another provider.: no B natriuretic peptide (08/20/2018 6:07 PM CHARGE ATTENDANT) Pathologist [facility] BNP 5 0 - 100 pg/mL [facility] Specimen Blood Performing Organization Address City/State/Zipcode Phone Number [facility] DEPARTMENT OF PATHOLOGY AND [address] [place] [address] GENOMIC MEDICINE [facility] [address] [place] [address] Drug kim 9, ser/thais, scrn w/rflx to conf (08/20/2018 2:50 PM CHARGE ATTENDANT) Amphetamines, Negative Cutoff 30 [facility] s/p, screen ng/mL Methamphetamine, Negative Cutoff 30 [facility] s/p, screen ng/mL Barbiturates, Negative Cutoff 75 [facility] s/p, screen ng/mL Benzodiazepines, Positive Cutoff 75 [facility] s/p, screen Comment: ng/mL If the screen is positive, then confirmation by mass spectrometry will be added. Additional charges will apply. Unconfirmed positive may be useful for medical purposes, but does not meet forensic standards. Cocaine, s/p, Negative Cutoff 30 [facility] screen ng/mL Methadone, s/p, Negative Cutoff 40 [facility] screen ng/mL Opiates, s/p, Negative Cutoff 30 [facility] screen ng/mL Oxycodone, s/p, Negative Cutoff 30 [facility] screen ng/mL Phencyclidine, Negative Cutoff 15 [facility] s/p, screen ng/mL Cannabinoids, Negative Cutoff 30 [facility] s/p, screen ng/mL Drug screen See Note [facility] comments, serum Comment: INTERPRETIVE INFORMATION: Drug Screen 9 Panel, Serum or Plasma - Immunoassay Screen with Reflex to Mass Spectrometry Confirmation/ Quantitation 1. Methodology: Qualitative Immunoassay Screen 2. Drugs/Drug classes reported as "Positive" are automatically reflexed to mass spectrometry confirmation/quantitation testing. An immunoassay unconfirmed positive screen result may be useful for medical purposes but does not meet forensic standards. 3. The absence of expected drug(s) and/or drug metabolite(s) may indicate non-compliance, inappropriate timing of specimen collection relative to drug administration, poor drug absorption, or limitations of testing. The concentration at which the screening test can detect a drug or metabolite varies within a drug class. Specimens for which drugs or drug classes are detected by the screen are automatically reflexed to a second, more specific technology (mass spectrometry). The concentration value must be greater than or equal to the cutoff to be reported as positive. Interpretive questions should be directed to the laboratory. 4. For medical purposes only; not valid for forensic use. Test developed and characteristics determined by [email or web address]. See Compliance Statement B: [employer]/ Performed by [email or web address], [address] [place] [id number] [email or web address], Arpit Liu MD - Lab. Director Specimen Blood Performing Organization Address City/State/Zipcode Phone Number [facility] [address] [place] [address] [facility] [address] [place] [address] Benzodiazepines, s/p, quant (08/20/2018 2:50 PM CHARGE ATTENDANT) Diazepam, s/p, 20 ng/mL [facility] quant Comment: Consistent with use of a drug containing diazepam, such as Valium; metabolites include nordiazepam, temazepam, and oxazepam. INTERPRETIVE INFORMATION: Benzodiazepines, Serum or Plasma, Quantitative Methodology: Quantitative Liquid Chromatography-Tandem Mass Spectrometry. Positive cutoff: 20 ng/mL unless specified below: Diazepam5 ng/mL Alprazolam5 ng/mL Alpha-hydroxyalprazolam 5 ng/mL Clonazepam5 ng/mL 7-aminoclonazepam 5 ng/mL For medical purposes only; not valid for forensic use. Identification of specific drug(s) taken by specimen donor is problematic due to common metabolites, some of which are prescription drugs themselves. The absence of expected drug(s) and/or drug metabolite(s) may indicate non-compliance, inappropriate timing of specimen collection relative to drug administration, poor drug absorption, or limitations of testing. The concentration value must be greater than or equal to the cutoff to be reported as positive. Interpretive questions should be directed to the laboratory. Test developed and characteristics determined by [facility]. See Compliance Statement B: [employer] Oxazepam, s/p, <20 ng/mL [facility] quant Temazepam, s/p, <20 ng/mL [facility] quant Nordiazepam, s/p, 24 ng/mL [facility] quant Comment: Metabolite of several benzodiazepines, such as chlordiazepoxide (Librium), prazepam (Centrax), halezepam (Alapryl), clorazepate (Tranxene), and others. Lorazepam, s/p, <20 ng/mL [facility] quant Alprazolam, s/p, <5 ng/mL [facility] quant Alpha-hydroxyalpr <5 ng/mL [facility] azolam, s/p, quant Clonazapam, s/p, <5 ng/mL [facility] quant 7-aminoclonazepam <5 ng/mL [facility] , s/p, quant Midazolam, s/p, <20 ng/mL [facility] quant Specimen Performing Organization Address [facility] Phone Number [facility] [address] [place] [address] [facility] [address] [place] [address] C difficile toxin (07/10/2018 11:02 AM CHARGE ATTENDANT) Clostridium No Clostridium difficle toxin present [facility] difficile toxin Comment: HOSPITAL Specimen Information Specimen Source: Stool Specimen Site: Nonpreserved Specimen Stool - Nonpreserved Performing Organization Address City/[facility] Phone Number [facility] DEPARTMENT OF PATHOLOGY AND [address] [place], [place] [phone] GENOMIC MEDICINE [address] [address] [place] Hepatobiliary (HIDA Scan) (07/09/2018 2:24 PM CHARGE ATTENDANT) Specimen Narrative Performed At Procedure:[place] HEPATOBILIARY (HIDA SCAN) [facility] Clinical History:cholecystitis Technique: The patient was injected with 4 mCi of [id number] intravenously, followed by dynamic imaging of the abdomen in the anterior projection for 1 hour. Findings: There is normal uptake of tracer by the liver with normal excretion into the biliary tree. Tracer proceeds normally into the gallbladder and small bowel. Impression: No evidence of acute cholecystitis or common bile duct obstruction. [id number] Procedure Note Interface, Radiology Results Incoming - 07/09/2018 2:36 PM CHARGE ATTENDANT Procedure: NM HEPATOBILIARY (HIDA SCAN) Clinical History: cholecystitis Technique: The patient was injected with 4 mCi of [id number] intravenously, followed by dynamic imaging of the abdomen in the anterior projection for 1 hour. Findings: There is normal uptake of tracer by the liver with normal excretion into the biliary tree. Tracer proceeds normally into the gallbladder and small bowel. Impression: No evidence of acute cholecystitis or common bile duct obstruction. [facility]-[id number] Performing Organization Address City/State/Zipcode Phone Number [facility] [address] [place] [address] [place] Abdominal Doppler (07/08/2018 6:06 PM CHARGE ATTENDANT) Specimen Narrative Performed At EXAMINATION:US ABDOMINAL DOPPLER [facility] CLINICAL HISTORY: r o portal vein thrombosishx of cirrhosis COMPARISON:July 08, 2018 CT scan Technique: Real-time as well as pulsed and color Doppler evaluation was performed. Spectral waveform analysis was utilized. FINDINGS: 1.There is an intrahepatic portosystemic shunt extending from the right portal vein to the right hepatic vein. The shunt is patent. Flow velocities in the shunt are proximal 97 cm/s; mid 73 cm/s; distally 78 cm/s. 2.Main portal vein: Patent. Flow is directed towards the TIPS shunt. Flow velocity is 23 cm/s. Left portal vein is not visualized. 3.Hepatic veins: Patent. There is pulsatility of flow related the cardiac cycle. 4.Hepatic artery: Patent. Resistive indices range from 0.70-0.83. 5.Inferior vena cava: Patent. 6.Superior mesenteric vein in the midline: Obscured by bowel gas. 7.Splenic artery and splenic vein at the splenic hilum: Patent. Flow velocity in the splenic vein is 14 cm/s. 8.Splenic artery and splenic vein in the midline: Obscured by contrast. IMPRESSION: Patent TIPS shunt and patent main portal vein as described. [id number] Procedure Note Interface, Radiology Results Incoming - 07/08/2018 6:43 PM CHARGE ATTENDANT EXAMINATION: US ABDOMINAL DOPPLER CLINICAL HISTORY: r o portal vein thrombosis hx of cirrhosis COMPARISON: July 08, 2018 CT scan Technique: Real-time as well as pulsed and color Doppler evaluation was performed. Spectral waveform analysis was utilized. FINDINGS: 1. There is an intrahepatic portosystemic shunt extending from the right portal vein to the right hepatic vein. The shunt is patent. Flow velocities in the shunt are proximal 97 cm/s; mid 73 cm/s; distally 78 cm/s. 2. Main portal vein: Patent. Flow is directed towards the TIPS shunt. Flow velocity is 23 cm/s. Left portal vein is not visualized. 3. Hepatic veins: Patent. There is pulsatility of flow related the cardiac cycle. 4. Hepatic artery: Patent. Resistive indices range from 0.70-0.83. 5. Inferior vena cava: Patent. 6. Superior mesenteric vein in the midline: Obscured by bowel gas. 7. Splenic artery and splenic vein at the splenic hilum: Patent. Flow velocity in the splenic vein is 14 cm/s. 8. Splenic artery and splenic vein in the midline: Obscured by contrast. IMPRESSION: Patent TIPS shunt and patent main portal vein as described. [facility]-[id number] Performing Organization Address City/State/Zipcode Phone Number [facility] [address] [place] [address] CT Abdomen Pelvis W Contrast (07/08/2018 11:07 AM CHARGE ATTENDANT) Specimen Narrative Performed At EXAMINATION:CT ABDOMEN PELVIS W CONTRAST [facility] CLINICAL HISTORY:pneumatosis intestinalis TECHNIQUE: Multiple axial images of the abdomen and pelvis were obtained following intravenous administration of iodinated contrast. Sagittal and coronal computerized reformatted images were also obtained. Radiation dose reduction technique was utilized. COMPARISON:07/05/2018 IMPRESSION: 1.Liver is nodular, compatible cirrhosis. A focal mass is not identified. 2.There is a TIPS shunt present which is patent. 3.Spleen measures 13.3 cm in length. 4.There are calcified gallstones present. 5.Pancreas, adrenals, and kidneys do not demonstrate any masses. 5.3 cm cyst again noted in the left kidney. 6.There is no retroperitoneal adenopathy or ascites. 7.There are postoperative changes related to ventral hernia repair with mesh. 8.Previously noted pneumatosis involving the cecum appears to have resolved. There is no free intraperitoneal air. There is no intestinal obstruction. 9.No abdominal or pelvic fluid collection has developed. [facility]-[id number] Procedure Note Interface, Radiology Results Incoming - 07/08/2018 11:16 AM CHARGE ATTENDANT EXAMINATION: CT ABDOMEN PELVIS W CONTRAST CLINICAL HISTORY: pneumatosis intestinalis TECHNIQUE: Multiple axial images of the abdomen and pelvis were obtained following intravenous administration of iodinated contrast. Sagittal and coronal computerized reformatted images were also obtained. Radiation dose reduction technique was utilized. COMPARISON: 07/05/2018 IMPRESSION: 1. Liver is nodular, compatible cirrhosis. A focal mass is not identified. 2. There is a TIPS shunt present which is patent. 3. Spleen measures 13.3 cm in length. 4. There are calcified gallstones present. 5. Pancreas, adrenals, and kidneys do not demonstrate any masses. 5.3 cm cyst again noted in the left kidney. 6. There is no retroperitoneal adenopathy or ascites. 7. There are postoperative changes related to ventral hernia repair with mesh. 8. Previously noted pneumatosis involving the cecum appears to have resolved. There is no free intraperitoneal air. There is no intestinal obstruction. 9. No abdominal or pelvic fluid collection has developed. [facility]-[id number] Performing Organization Address City/[facility] Phone Number [facility] [address] [place] [address] Fibrinogen (07/08/2018 5:59 AM CHARGE ATTENDANT)Only the most recent of4 resultswithin the time period is included. Fibrinogen 288 200 - 450 mg/dL [facility] Specimen Blood Performing Organization Address [facility] Phone Number [facility] DEPARTMENT OF PATHOLOGY AND [address] [place] [address] LDH (07/08/2018 5:59 AM CHARGE ATTENDANT)Only the most recent of4 resultswithin the time period is included. LDH 324 (H) 87 - 225 U/L [facility] Specimen Plasma specimen Performing Organization Address [facility] Phone Number [facility] DEPARTMENT OF PATHOLOGY AND [address] [place] [address] Ionized calcium (07/08/2018 5:59 AM CHARGE ATTENDANT)Only the most recent of4 resultswithin the time period is included. pH 7.47 [facility] Ionized calcium 1.10 (L) 1.11 - 1.32 [facility] mmol/L [facility] Specimen Plasma specimen Performing Organization Address City/[facility]/Zipcode Phone Number [facility] DEPARTMENT OF PATHOLOGY AND [address] [place] [address] Lactic acid, syringe (07/06/2018 12:59 PM CHARGE ATTENDANT) Pathologist [facility] Lactic acid, syringe 1.8 0.5 - 2.2 mmol/L [facility] Specimen Blood Performing Organization Address City/[facility]/Zipcode Phone Number [facility] DEPARTMENT OF PATHOLOGY AND [address] [place] [phone] [place] [address] Arterial blood gas (07/06/2018 12:59 PM CHARGE ATTENDANT) [facility] pH, arterial 7.36 7.35 - 7.45 [facility] pCO2, arterial 42 35 - 45 mmHg [facility] pO2, arterial 74 (L) 80 - 90 mmHg [facility] Bicarbonate, 23.0 21.0 - 28.0 [facility] mmol/L HOSPITAL Base excess, -2 -2 - 2 mEq/L [facility] O2 saturation, 94 (L) 95 - 100 % [facility] Specimen Blood Performing Organization Address [facility] Phone Number [facility] DEPARTMENT OF PATHOLOGY AND [address] [place] [address] POC glucose (07/06/2018 12:23 PM CHARGE ATTENDANT)Only the most recent of7 resultswithin the time period is included. [facility] POC glucose 135 (H) 65 - 99 mg/dL [facility] Comment: HOSPITAL Meter ID: [id number] [employer]: Bell Lai Specimen Performing Organization Address City/[facility]/Zipcode Phone Number [facility] DEPARTMENT OF PATHOLOGY AND [address] [place] [address] [address] Abd/Pelvic External Study (07/05/2018 12:42 AM CHARGE ATTENDANT) Specimen Narrative Performed At This exam was not acquired at a [facility] facility and has not been [facility] interpreted by a [facility] Provider.The exam was imported into our imaging system for comparisons purposes. Performing Organization Address City/State/Zipcode Phone Number [facility] [address] [place] [address] CT Chest Wo Contrast (04/25/2018 11:36 AM CDT) Specimen Narrative Performed At EXAMINATION: [facility] CT CHEST WO CONTRAST CLINICAL HISTORY: K75.81 [...] findings. IMPRESSION: No evidence of metastatic disease. [facility]-[id number] Procedure Note Interface, Radiology Results Incoming - [...] findings. IMPRESSION: No evidence of metastatic disease. [id number] Performing Organization Address City/State/Zipcode Phone Number [facility] [address] [place] [address] Echocardiogram complete w contrast and 3D if needed (04/25/2018 9:00 AM CDT) Specimen Narrative Performed At [facility] Echocardiography Report [address] [address], [place] [address] Pat.Name:Rita BARRON.ID:[id number] .Date: 04/25/2018 Refer.MD:EBONY ROPER MD Exam Time: 8:18:00 AMStudy Type:Routine Echo Height:59inWeight: 178lb BSA: 1.76 m2 DOBAge:1960,57Y Sex: FEMALEBP:140/61 HR:85 bpm Sonogrphr: Janelle Mills RDCS, RVT Pat. Stat.:Outpatient[facility] Study Status:Final Echo Event ID:[id number] Order ID:[id number] Reason for Study:Liver Transplant Evaluation, Cancer Screening [...] PA systolic pressure. MEASUREMENTS: 2D Parasternal [place] LVOT 1.7 cmLA Ds4 cm LVIDd4.1 cmIndex2.3 cm/m Ao An1.7 cm LVIDs2.1 cmAo Rtd 2.6 cm Index1.5 cm/m LV%fs 48.8 % LV Fofm664.1 g(87-129) IVSd 1 cmLVM Index 75.1 g/m2 LVPWd1 cmRWT0.5 LA Sng Plane LA Area 22.7 cm2(8.8-23.4) LA Vol67.2 ml Index38.2 ml/m LA LngAx 6.2 cm RA Sng Plane RA Area 14.2 cm2(8.3-19.5) RA Vol36.2 ml Index20.6 ml/m RA LngAx 4.8 cm DOPPLER LVOT Stroke Vol LVOT 1.7 cmLVOT CO6.7 l/min LVOT TVI34.9 cmLVOT CI3.8 l/m/m2 LVOT Tm359 crglAS32 bpm LVOT SV 79.3 ml Signed 04/28/2018 06:22 PM Maria De Jesus Metcalf MD Procedure Note Interface, Radiology Results In - 04/28/2018 6:22 PM CDT Echocardiography Report [address] [place] [address] Pat.Name: BELLA BARRON Pat.ID: [id number] .Date: 04/25/2018 Refer.MD: EBONY ROPER MD Exam Time: 8:18:00 AM Study Type:Routine Echo Height: 59in Weight: 178lb BSA: 1.76 m2 Age: 12 1960,57Y Sex: FEMALE BP: 140/61 HR: 85 bpm Sonogrphr: Janelle Mills RDCS, RVT Pat. Stat.:Outpatient Room: [facility] Study Status:Final Echo Event ID:[id number] Order ID: [id number] Reason for Study:Liver Transplant Evaluation, Cancer Screening [...] PA systolic pressure. MEASUREMENTS: 2D Parasternal Long [place] LVOT 1.7 cm LA Ds 4 cm [...] De Jesus Metcalf MD Performing Organization Address City/State/[facility] Phone Number [facility] [address] [place] [address] Transfuse RBC, 1 Units (04/16/2018 5:25 PM CDT)Only the most recent of2 resultswithin the time period is included.CT Abdomen W Wo Contrast (03/26/2018 3:25 PM CDT) Specimen Narrative Performed At EXAMINATION:CT ABDOMEN W WO [...] dome. Further characterization with MRI is recommended. [facility]-[id number] Procedure Note Interface, Radiology Results Incoming - 03/26/2018 3:53 [...] dome. Further characterization with MRI is recommended. [facility]-[id number] Performing Organization Address City/State/Zipcode Phone Number [facility] [address] [place] [address] Estimated GFR (03/26/2018 12:50 PM CDT) GFR Non Af Amer 46 (A) mL/min/1.73 [facility] DEPARTMENT OF m2 PATHOLOGY AND GENOMIC MEDICINE GFR Af Amer 56 (A) mL/min/1.73 [facility] DEPARTMENT OF Comment: m2 PATHOLOGY AND Chronic kidney disease: <60 mL/min/1.73m2 GENOMIC MEDICINE Kidney failure: <15 mL/min/1.73m2 The estimated [...] specimen Performing Organization Address City/State/Zipcode Phone Number [facility] DEPARTMENT OF PATHOLOGY AND [address] [place] [address] GENOMIC MEDICINE after 12/30/2017 Insurance Payer Benefit Plan / Subscriber ID Effective Dates Phone Address Type Group MEDICARE MEDICARE PART A xxxxxxxxxxx 2015-Present [place], [place] Medicare AND B MEDICAID MEDICAID xxxxxxxxx 2015-Present Medicaid Advance Directives Patient has advance care planning documents on file. For more information, please contact:Catracho Marquez[address] [place] [address]
--- OUTSIDE RECORDS SUMMARY | 2018-12-31 20:35 | XMS REPORT ---
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 Assessment Lower respiratory infection J22 Active Problem Seasonal and perennial allergic J30.9 Active rhinitis Assessment Acute bronchitis, unspecified J20.9 Active organism Problem Restless legs syndrome G25.81 Active Medications Medication Code Code Instructions Start End Status Dosage System Date Date Pantoprazole [facility] 39352784072 40 MG Orally Active 1 tablet Sodium Once a day Gabapentin ND 06902307448 100 MG Orally Active 2 cap in Three times a AM 3 caps day PM Ultram [facility] 95118283926 50 MG Orally Active 1 tablet every 6 hrs as needed Albuterol Sulfate ND 72581558808 108 (90 Base) Sep 09, Active 2 puffs as HFA MCG/ACT 2019 needed Inhalation every 6 hrs PRN Shortness or breath, cough and wheezing Xifaxan [facility] 22715308608 550 MG Orally Active 1 tablet Twice a day Furosemide ND 43997227130 40 MG Orally Active 1 tablet Once a day Spironolactone ND 83626675969 25 MG Orally Active 1 tablet Once a day with food Cyanocobalamin ND 57958722050 1000 MCG/ML Active INJECT 1 Intramuscular ML IN once monthly MUSCLE ONCE A MONTH Seroquel ND 44371424702 50 MG Orally Active 1 tablet Once a day Azithromycin ND 81213058592 250 MG Orally Sep 09Sep Active 2 tablets Once a day 2018 10, on the 2018 first day, then 1 tablet daily for 4 days Folic Acid [facility] 91253449757 1 MG Orally Once Active 1 tablet a day Zofran ODT [facility] 63197062152 4 MG Orally Active 1 tablet every 8 hrs on the tongue and allow to dissolve Results No Known Results Summary Purpose eClinicalWorks Submission
--- OUTSIDE RECORDS SUMMARY | 2018-12-31 20:35 | XMS REPORT ---
[...] Status Dosage System Date Date Gabapentin ND 96216098042 100 MG Orally Active 2 cap in Three times a AM 3 caps day PM Cyanocobalamin ND 07828358167 1000 MCG/ML Active INJECT 1 ML IN MUSCLE ONCE A MONTH Furosemide ND 72898614404 40 MG Orally Active 1 tablet Once a day Seroquel ND 42633678898 50 MG Orally Active 1 tablet Once a day Ultram ND 85061099354 50 MG Orally Active 1 tablet every 6 hrs as needed Folic Acid ND 98028584787 1 MG Orally Active 1 tablet Once a day Spironolactone ND 50639867689 25 MG Orally Active 1 tablet Once a day with food Zofran ODT ND 97770743600 4 MG Orally Active 1 tablet every 8 hrs on the tongue and allow to dissolve Pantoprazole ND 57527484670 40 MG Orally Active 1 tablet Sodium Once a day Xifaxan ND 52961218133 550 MG Orally Active 1 tablet Twice a day Results No Known Results Summary Purpose eClinicalWorks Submission
--- OUTSIDE RECORDS SUMMARY | 2018-12-31 20:35 | XMS REPORT ---
:1960 [facility] Address [address] [place] [address] Dr. Olivia [address] [place] [address] Care Team Providers Name Role Phone Unavailable Unavailable Unavailable Problems This patient has no known problems. Allergies, Adverse Reactions, Alerts This patient has no known allergies or adverse reactions. Medications This patient has no known medications.
--- OUTSIDE RECORDS SUMMARY | 2018-12-31 20:35 | XMS REPORT ---
[...] End Status Dosage System Date Date Cyanocobalamin [facility] 59568028999 1000 MCG/ML Active INJECT 1 Intramuscular ML IN once monthly MUSCLE ONCE A MONTH Results No Known Results Summary Purpose eClinicalWorks Submission
[2018-12-31 21:18] LABS: Urine Blood NEGATIVE (NEG); Urine Glucose NEGATIVE (NEG); Urine Protein NEGATIVE (NEG); Urine pH 6.5 (5.0-7.0)
[2018-12-31 21:56] LABS: Absolute Lymphocytes (CBC) 1.4 K/uL (0.7-4.9); Absolute Monocytes 0.7 K/uL (0.1-1.3); Absolute Neutrophil 4.2 K/uL (1.8-8.0); Basophils % 0.6 % (0-1.3); Eosinophils % 4.2 % (0-4.4); Hematocrit 33.7 % (36.0-45.0); Lymphocytes % 21.5 % (15.3-44.8); MPV 8.6 fL (7.6-11.3); Monocytes % 10.2 % (3.3-12.3); RBC Red Blood Cell Count 3.99 M/uL (3.86-4.86)
[2018-12-31 22:04] LABS: Urine Bacteria <20 /HPF (<20); Urine Culture Reflex Order NOT NEEDED; Urine RBC NONE SEEN /HPF (NONE SEEN)
[2018-12-31] MEDS ORDERED: KETOROLAC 30 MG/ML INJ ONE (22:07)
[2018-12-31 22:12] LABS: Albumin 3.5 g/dL (3.4-5.0); Bilirubin Direct 0.4 mg/dL (0-0.2); Potassium 3.7 mmol/L (3.5-5.1); Protein, Total 8.1 g/dL (6.4-8.2)
[2018-12-31] MEDS ORDERED: FENTANYL CITR 100 MCG/2 ML ONE (23:43)
--- NOTE | 2019-01-01 00:15 | EDPHYS ---
Physician Documentation [facility] Name: Bella Barron Age: 58 yrs Sex: Female : 1960 Arrival Date: 12/31/2018 Time: 20:30 Bed 23 Private MD: ED Physician Ryan Hairston HPI: 12/31 21:00 This 58 yrs old Female presents to ER via Ambulatory with complaints of Flank cp Pain. 21:00 The patient complains of pain in the right flank. The pain radiates to the right upper cp abdomen. Onset: The symptoms/episode began/occurred 1 week(s) ago. Associated signs and symptoms: Pertinent negatives: diarrhea, fever, headache, pain radiating to the lower extremities, vomiting. Severity of pain: in the emergency department the pain is unchanged despite home interventions. Historical: - Allergies: 20:44 Iodine; aj1 20:44 Phenergan; aj1 20:44 Rocephin; aj1 - Home Meds: 20:44 gabapentin 300 mg oral cap 1 cap 3 times per day [Active]; Xifaxan 550 mg Oral tab 1 aj1 tab 2 times per day [Active]; furosemide 40 mg Oral tab 1 tab once daily [Active]; spironolactone 100 mg Oral tab 1 tab once daily [Active]; Krystalose [Active]; pantoprazole 40 mg Oral TbEC 1 tab once daily [Active]; quetiapine Oral 1 tab nightly [Active]; tramadol 50 mg Oral tab 1 tab as needed [Active]; - PMHx: 20:44 Cirrhosis; Crohn's; Depression; Liver disease; ocd; aj1 - Immunization history:: Flu vaccine is up to date. - Social history:: Smoking status: Patient/guardian denies using tobacco. - Ebola Screening: : Patient denies travel to an Ebola-affected area in the 21 days before illness onset. ROS: 21:05 Constitutional: Negative for body aches, chills, fever, poor PO intake. cp 21:05 Eyes: Negative for injury, pain, redness, and discharge. cp 21:05 ENT: Negative for drainage from ear(s), ear pain, sore throat, difficulty swallowing, difficulty handling secretions. 21:05 Cardiovascular: Negative for chest pain, edema, palpitations. 21:05 Respiratory: Negative for cough, shortness of breath, wheezing. 21:05 Abdomen/GI: Negative for nausea, vomiting, and diarrhea, constipation, anorexia, black/tarry stool, rectal bleeding. 21:05 Back: Positive for flank pain, on the right. 21:05 : Negative for urinary symptoms, pelvic pain, bladder incontinence, vaginal bleeding, vaginal discharge. 21:05 MS/extremity: Negative for decreased range of motion, pain. 21:05 Skin: Negative for cellulitis, rash. 21:05 Neuro: Negative for altered mental status, headache, weakness. 21:05 All other systems are negative. Exam: 21:20 Constitutional: The patient appears in no acute distress, alert, awake, cp non-diaphoretic, non-toxic, well developed, well nourished. 21:20 Head/Face: Normocephalic, atraumatic. cp 21:20 Eyes: Periorbital structures: appear normal, Conjunctiva: normal, no exudate, no injection, Sclera: no appreciated abnormality, Lids and lashes: appear normal, bilaterally. 21:20 ENT: External ear(s): are unremarkable, Nose: is normal, Mouth: Lips: moist, Oral mucosa: moist, Posterior pharynx: is normal, airway is patent, no erythema, no exudate. 21:20 Neck: ROM/movement: is normal, is supple, without pain, no range of motions limitations, no nuchal rigidity. 21:20 Chest/axilla: Inspection: normal, Palpation: is normal, no crepitus, no tenderness. 21:20 Cardiovascular: Rate: normal, Rhythm: regular, Edema: is not appreciated, JVD: is not appreciated. 21:20 Respiratory: the patient does not display signs of respiratory distress, Respirations: normal, no use of accessory muscles, no retractions, no splinting, no tachypnea, labored breathing, is not present, Breath sounds: are clear throughout, no decreased breath sounds, no stridor, no wheezing. 21:20 Abdomen/GI: Inspection: abdomen appears normal, Bowel sounds: active, all quadrants, Palpation: soft, in all quadrants, mild abdominal tenderness, in the right upper quadrant, rebound tenderness, is not appreciated, voluntary guarding, is not appreciated, involuntary guarding, is not appreciated. 21:20 Back: pain, that is moderate, of the right mid back and right low back, ROM is normal, vertebral tenderness, is not appreciated. 21:20 Skin: no rash present. Vital Signs: 20:44 BP 129 / 71; Pulse 96; Resp 18; Temp 97.8; Pulse Ox 96% on R/A; Weight 86.18 kg (R); aj1 Height 4 ft. 11 in. (149.86 cm) (R); Pain 10/10; 22:12 BP 119 / 64; Pulse 86; Resp 18 S; Temp 98.1(O); Pulse Ox 100% on R/A; ca1 01/01 00:04 BP 123 / 60; Pulse 86; Resp 18; Temp 98; Pulse Ox 100% on R/A; mg2 12/31 20:44 Body Mass Index 38.37 (86.18 kg, 149.86 cm) aj1 MDM: 12/31 20:52 Patient medically screened. cp 01/01 00:07 ED course: spoke to ct surgeon [facility], finding on ct not acute reasonable to follow up. gs 00:11 Data reviewed: vital signs, nurses notes, lab test result(s), radiologic studies, CT cp scan, I have discussed the patient's presentation/case with the attending Emergency Department Physician; and as a result, I will discharge patient. 00:11 Differential diagnosis: nephrolithiasis, pyelonephritis, UTI, pancreatitis. 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 Response to treatment: the patient's symptoms have markedly improved after treatment, and as a result, I will discharge patient. Special discussion: Based on the patient's Hx, exam, and Dx evaluation, there is no indication for emergent surgery or inpatient Tx. It is understood by the patient/guardian that if the Sx's persist or worsen they need to return immediately for re-evaluation. 12/31 20:58 Order name: Urine Dipstick--Ancillary (enter results); Complete Time: 21:47 ar5 12/31 20:58 Order name: Urine --Ancillary (enter results); Complete Time: 21:47 ar5 12/31 21:11 Order name: Basic Metabolic Panel cp 12/31 21:11 Order name: CBC with Diff 12/31 21:11 Order name: Creatinine for Radiology; Complete Time: 22:13 cp 12/31 22:14 Interpretation: Abnormal: CRE 1.44; GFR 38. cp 12/31 21:11 Order name: Hepatic Function; Complete Time: 22:13 cp 12/31 22:14 Interpretation: Normal except: BILID 0.4; GLOB 4.6; A/G 0.8. cp 12/31 21:11 Order name: Lipase; Complete Time: 22:13 cp 12/31 22:14 Interpretation: LIP 270; Reviewed. 12/31 21:11 Order name: IV Saline Lock; Complete Time: 21:45 cp 12/31 21:11 Order name: Urine Microscopic Only; Complete Time: 22:13 cp 12/31 21:12 Order name: Basic Metabolic Panel; Complete Time: 22:13 EDMS 12/31 22:14 Interpretation: Normal except: CL 108; GLUC 112; CRE 1.47; GFR 37. cp 12/31 21:12 Order name: CBC with Automated Diff; Complete Time: 22:13 EDMS 12/31 22:14 Interpretation: Normal except: HGB 11.2; HCT 33.7; PLT 129; RDW 19.6. 12/31 21:49 Order name: CT Stone Protocol 12/31 21:11 Order name: Labs collected and sent; Complete Time: 21:45 cp Administered Medications: 12/31 21:57 Drug: TORadol - Ketorolac 15 mg Route: IVP; Site: left antecubital; ca1 23:00 Follow up: Response: No adverse reaction; Pain is unchanged, physician notified ca1 23:35 Drug: fentaNYL (PF) 25 mcg Route: IVP; Site: left antecubital; mg2 01/01 00:20 Follow up: Response: No adverse reaction; Pain is decreased ca1 Disposition: 21:59 Co-signature as Attending Physician, Ryan Hairston MD. Disposition: 01/01/19 00:13 Discharged to Home. Impression: Low back pain. - Condition is Stable. - Discharge Instructions: Back Pain, Adult, Back Exercises, [id number]. - Prescriptions for Cyclobenzaprine 10 mg Oral Tablet - take 1 tablet by ORAL route every 8 hours As needed; 20 tablet. Medrol (Aneesh) 4 mg Oral Tablets, Dose Pack - take 1 tablet by ORAL route as directed - follow package instructions; 1 packet. - Medication Reconciliation Form, Thank You Letter, Antibiotic Education, Prescription Opioid Use form. - Follow up: Private Physician; When: 2 - 3 days; Reason: Recheck today's complaints. - Problem is new. - Symptoms have improved. Signatures: Dispatcher [employer] EDMinda Muñiz RN RN aj1 James Busby PA PA cp Ryan Hairston MD MD gs Nakul Schaeffer RN RN mg2 Alycia Paulino RN RN ca1 Corrections: (The following items were deleted from the chart) 00:30 00:13 01/01/2019 00:13 Discharged to Home. Impression: Low back pain. Condition is ca1 Stable. Forms are Medication Reconciliation Form, Thank You Letter, Antibiotic Education, Prescription Opioid Use. Follow up: Private Physician; When: 2 - 3 days; Reason: Recheck today's complaints. Problem is new. Symptoms have improved. cp
--- NOTE | 2019-01-01 00:15 | ER ---
Nurse's Notes [facility] Name: Bella Barron Age: 58 yrs Sex: Female : 1960 Arrival Date: 12/31/2018 Time: 20:30 Bed 23 Private MD: Diagnosis: Low back pain Presentation: 12/31 20:41 Presenting complaint: Patient states: Left lower back pain for the past week. Patient aj1 reports a history of kidney stones, also reports that she has a cyst on her kidney. Denies dysuria, urinary frequency. Denies fever. Transition of care: patient was not received from another setting of care. Onset of symptoms was December 2018. Risk Assessment: Do you want to hurt yourself or someone else? Patient reports no desire to harm self or others. Initial Sepsis Screen: Does the patient meet any 2 criteria? No. Patient's initial sepsis screen is negative. Does the patient have a suspected source of infection? No. Patient's initial sepsis screen is negative. Care prior to arrival: None. 20:41 Method Of Arrival: Ambulatory aj1 20:41 Acuity: OLEG 3 aj1 Triage Assessment: 20:44 General: Appears in no apparent distress. uncomfortable, Behavior is calm, cooperative, aj1 appropriate for age. Pain: Complains of pain in left low back. Neuro: Level of Consciousness is awake, alert, obeys commands. Cardiovascular: Patient's skin is warm and dry. Respiratory: Airway is patent Respiratory effort is even, unlabored, Respiratory pattern is regular, symmetrical. Historical: - Allergies: 20:44 Iodine; aj1 20:44 Phenergan; aj1 20:44 Rocephin; aj1 - Home Meds: 20:44 gabapentin 300 mg oral cap 1 cap 3 times per day [Active]; Xifaxan 550 mg Oral tab 1 aj1 tab 2 times per day [Active]; furosemide 40 mg Oral tab 1 tab once daily [Active]; spironolactone 100 mg Oral tab 1 tab once daily [Active]; Krystalose [Active]; pantoprazole 40 mg Oral TbEC 1 tab once daily [Active]; quetiapine Oral 1 tab nightly [Active]; tramadol 50 mg Oral tab 1 tab as needed [Active]; - PMHx: 20:44 Cirrhosis; Crohn's; Depression; Liver disease; ocd; aj1 - Immunization history:: Flu vaccine is up to date. - Social history:: Smoking status: Patient/guardian denies using tobacco. - Ebola Screening: : Patient denies travel to an Ebola-affected area in the 21 days before illness onset. Screenin:50 Abuse screen: Denies threats or abuse. Denies injuries from another. Nutritional ca1 screening: No deficits noted. Tuberculosis screening: No symptoms or risk factors identified. Fall Risk None identified. Assessment: 20:50 General: Appears in no apparent distress. comfortable, Behavior is calm, cooperative, ca1 appropriate for age. Pain: Complains of pain in back and left low back Pain does not radiate. Pain currently is 8 out of 10 on a pain scale. Pain began several days ago. Neuro: Level of Consciousness is awake, alert, obeys commands, Oriented to person, place, time, situation. Cardiovascular: Heart tones S1 S2 present Capillary refill < 3 seconds Patient's skin is warm and dry. Respiratory: Airway is patent Respiratory effort is even, unlabored, Breath sounds are clear bilaterally. GI: Abdomen is round non-distended, Bowel sounds present X 4 quads. Abd is soft and non tender X 4 quads. : Reports cramping, in left flank(s). EENT: No deficits noted. No signs and/or symptoms were reported regarding the EENT system. Derm: Skin is intact, is healthy with good turgor, Skin is pink, warm \T\ dry. Musculoskeletal: Circulation, motion, and sensation intact. Capillary refill < 3 seconds. 22:12 Reassessment: Patient appears in no apparent distress at this time. Patient and/or ca1 family updated on plan of care and expected duration. Pain level reassessed. Patient is alert, oriented x 3, equal unlabored respirations, skin warm/dry/pink. 23:00 Reassessment: Patient appears in no apparent distress at this time. Patient is alert, ca1 oriented x 3, equal unlabored respirations, skin warm/dry/pink. Patient states feeling better. 01/01 00:01 Reassessment: Patient appears in no apparent distress at this time. Patient is alert, ca1 oriented x 3, equal unlabored respirations, skin warm/dry/pink. Vital Signs: 12/31 20:44 BP 129 / 71; Pulse 96; Resp 18; Temp 97.8; Pulse Ox 96% on R/A; Weight 86.18 kg (R); aj1 Height 4 ft. 11 in. (149.86 cm) (R); Pain 10/10; 22:12 BP 119 / 64; Pulse 86; Resp 18 S; Temp 98.1(O); Pulse Ox 100% on R/A; ca1 01/01 00:04 BP 123 / 60; Pulse 86; Resp 18; Temp 98; Pulse Ox 100% on R/A; mg2 12/31 20:44 Body Mass Index 38.37 (86.18 kg, 149.86 cm) aj1 ED Course: 12/31 20:30 Patient arrived in ED. es 20:42 Triage completed. aj1 20:44 Arm band placed on Patient placed in an exam room. aj1 20:50 Patient has correct armband on for positive identification. Placed in gown. Bed in low ca1 position. Call light in reach. Side rails up X 1. Pulse ox on. NIBP on. Warm blanket given. 20:50 No provider procedures requiring assistance completed. ca1 20:52 James Busby PA is PHCP. cp 20:52 Ryan Hairston MD is Attending Physician. cp 21:45 Alycia Paulino, AMARILIS is Primary Nurse. ca1 21:[address] via wheelchair. vm2 21:53 Initial lab(s) drawn, by me, sent to lab. Inserted saline lock: 22 gauge in left lt1 antecubital area, using aseptic technique. 22:13 CT Stone Protocol In Process Unspecified. EDMS 01/01 00:29 IV discontinued, intact, bleeding controlled, No redness/swelling at site. Pressure ca1 dressing applied. Administered Medications: 12/31 21:57 Drug: TORadol - Ketorolac 15 mg Route: IVP; Site: left antecubital; ca1 23:00 Follow up: Response: No adverse reaction; Pain is unchanged, physician notified ca1 23:35 Drug: fentaNYL (PF) 25 mcg Route: IVP; Site: left antecubital; mg2 01/01 00:20 Follow up: Response: No adverse reaction; Pain is decreased ca1 Outcome: 00:13 Discharge ordered by MD. cp 00:29 Discharged to home ambulatory, with significant other. ca1 00:29 Condition: stable 00:29 Discharge instructions given to patient, Instructed on discharge instructions, follow up and referral plans. medication usage, Demonstrated understanding of instructions, follow-up care, medications, Prescriptions given X 2. 00:30 Patient left the ED. ca1 Signatures: Dispatcher [employer] Minda Rodrigez, RN RN aj1 Shabana Steward Corey, PA PA cp McGuire, Victoria 2 Nakul Schaeffer RN RN mg2 Alycia Paulino RN RN ca1 Thelma Garcia [facility]
[2019-01-01 01:31] VITALS: O2SAT 100
[2019-01-01 01:32] VITALS: BP 123/60; TEMP 98
--- NOTE | 2019-01-01 09:36 | RAD REPORT ---
EXAM DESCRIPTION: CT - Stone Protocol - 12/31/2018 10:38 pm CLINICAL HISTORY: 58 years Female FLANK PAIN COMPARISON: None TECHNIQUE: Images were obtained in axial, sagittal, and coronal planes. No oral or intravenous contr ast was administered. This exam was performed according to our departmental dose-optimization program which includes use of Automated Exposure Control, adjustment of the mA and/or kV according to patient size and/or use of i terative reconstruction technique. FINDINGS: Surgical clips ileocecal region indicating prior bowel resection and anastomosis. Marked c onstipation. No bowel obstruction or perforation. Postsurgical changes anterior abdominal wall. Appen nahum not identified likely related to prior resection. 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 No abno rmality lower lungs bilaterally otherwise noted Punctate nonobstructing calcifications kidneys bilaterally. No hydronephrosis bilaterally. Left renal cyst. Unremarkable bladder. 3.8 cm cyst right adnexa likely ovarian in nature. Biliary stent identified. Surgical clips portal region consistent with prior cholecystectomy. No foca l hepatic lesions seen. Spleen is enlarged measuring 14.5 cm in greatest dimension. Unremarkable panc reas and adrenal glands bilaterally. No acute osseous abnormality. No dilatation abdominal aorta. No adenopathy or abnormal fluid collections seen. 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 Clinical correlation would be needed to determine whether this is posttraumatic in nature or related to prior instrumentation. Postsurgical changes ileocecal region. No bowel obstruction or perforation. Nonobstructing subcentimeter calcifications kidneys bilaterally. Biliary stent. No intrahepatic biliary dilatation noted. Splenomegaly. Electronically signed by: Shobha Staton MD 12/31/2018 10:30 PM CDT Due to temporary technical issues with the PACS/Fluency reporting system, reports are being signed by the in house radiologist as a courtesy to ensure prompt reporting. The interpreting radiologist is f ully responsible for the content of the report.
== END 2019-01-01 00:30 | disposition home or self-care (01) ==
LOC: ER 20:28
DX: M54.5 Low back pain (principal); K74.60 Unspecified cirrhosis of liver; F32.9 Major depressive disorder, single episode, unspecified; Z88.1 Allergy status to other antibiotic agents; Z88.8 Allergy status to other drugs, medicaments and biological substances; Z91.048 Other nonmedicinal substance allergy status
CPT/HCPCS: 85025; 80048; 36415; 81025; 80076; 83690; 76377; 74176; 96375; 96374; 99284; J3010; 81003; 81015

== ENCOUNTER 2019-09-10 17:58 | Emergency (ER) | payer OTHER ==
--- OUTSIDE RECORDS SUMMARY | 2019-09-10 18:00 | XMS REPORT ---
:1960 [facility] Address [address] [place] [address] Dr. Olivia [address] [place] [address] Care Team Providers Name Role Phone Unavailable Unavailable Unavailable Problems This patient has no known problems. Allergies, Adverse Reactions, Alerts This patient has no known allergies or adverse reactions. Medications This patient has no known medications.
--- OUTSIDE RECORDS SUMMARY | 2019-09-10 18:02 | XMS REPORT ---
:1960 Author Organization eClinicalWorks Care Team Providers Name Role Phone Fernando Díaz Provider Role Unavailable Allergies No Known Allergies Problems Problem Type Condition Code Onset Dates Condition Status Problem Cirrhosis of liver K74.60 Active Problem Thrombocytopenia D69.6 Active Problem Bipolar disorder F31.9 Active Problem Incontinence of feces, unspecified R15.9 Active fecal incontinence type Problem Inflammatory bowel disease K52.9 Active Problem Adult BMI 37.0-37.9 kg/sq m Z68.37 Active Problem Fatigue R53.83 Active Problem Chronic pain G89.29 Active Problem Anxiety F41.9 Active Problem Depression F32.9 Active Problem Irritable bowel syndrome without K58.9 Active diarrhea Problem Seasonal and perennial allergic J30.9 Active rhinitis Assessment Benign mole D22.9 Active Problem Restless legs syndrome G25.81 Active Problem Kidney stone N20.0 Active Medications No Known Medications Results No Known Results Summary Purpose eClinicalWorks Submission
--- OUTSIDE RECORDS SUMMARY | 2019-09-10 18:02 | XMS REPORT ---
:1960 Author Organization [employer]Works Care Team Providers Name Role Phone Fernando Díaz Provider Role Unavailable Allergies No Known Allergies Problems Problem Type Condition Code Onset Dates Condition Status Problem Cirrhosis of liver K74.60 Active Problem Thrombocytopenia D69.6 Active Problem Bipolar disorder F31.9 Active Problem Irritable bowel syndrome without K58.9 Active diarrhea Problem Seasonal and perennial allergic J30.9 Active rhinitis Problem Restless legs syndrome G25.81 Active Problem Kidney stone N20.0 Active Problem Incontinence of feces, unspecified R15.9 Active fecal incontinence type Problem Inflammatory bowel disease K52.9 Active Problem Adult BMI 37.0-37.9 kg/sq m Z68.37 Active Problem Fatigue R53.83 Active Problem Chronic pain G89.29 Active Problem Anxiety F41.9 Active Problem Depression F32.9 Active Medications Medication Code Code Instructions Start End Status Dosage System Date Date BD Disp [facility] 46798989110 25G X 1" Jul 20, Active 1 Needle intramuscularly 2019 needle/syri every 2 weeks ng with B12 injection Syringe 2-3 ND 51181669980 3 ML Jul 20, Active 1 ML intramuscularly 2019 syringe/nee every 2 weeks dle with B12 injection Results No Known Results Summary Purpose eClinicalWorks Submission
--- OUTSIDE RECORDS SUMMARY | 2019-09-10 18:02 | XMS REPORT ---
:1960 Author Organization eClinicalWorks Care Team Providers Name Role Phone Sanjay Díazh Provider Role Unavailable Allergies, Adverse Reactions, Alerts Substance Reaction Event Type Phenergan Info Not Available Drug Allergy Iodine Info Not Available Drug Allergy Problems Problem Type Condition Code Onset Dates Condition Status Assessment Thrombocytopenia D69.6 Active Assessment Chronic pain G89.29 Active Assessment Fatigue R53.83 Active Problem Restless legs syndrome G25.81 Active Assessment Adult BMI 37.0-37.9 kg/sq m Z68.37 Active Problem Kidney stone N20.0 Active Assessment Restless legs syndrome G25.81 Active Problem Cirrhosis of liver K74.60 Active Problem Thrombocytopenia D69.6 Active Problem Bipolar disorder F31.9 Active Problem Incontinence of feces, unspecified R15.9 Active fecal incontinence type Problem Inflammatory bowel disease K52.9 Active Assessment Incontinence of feces, unspecified R15.9 Active fecal incontinence type Assessment Bipolar disorder F31.9 Active Problem Adult BMI 37.0-37.9 kg/sq m Z68.37 Active Assessment At risk for falls Z91.81 Active Problem Fatigue R53.83 Active Problem Chronic pain G89.29 Active Problem Anxiety F41.9 Active Problem Depression F32.9 Active Assessment Cirrhosis of liver K74.60 Active Assessment Vitamin B12 deficiency E53.8 Active Assessment Anxiety F41.9 Active Assessment Depression F32.9 Active Problem Irritable bowel syndrome without K58.9 Active diarrhea Problem Seasonal and perennial allergic J30.9 Active rhinitis Assessment Inflammatory bowel disease K52.9 Active Medications Medication Code Code Instructions Start End Status Dosage System Date Date Cyanocobalamin [facility] 03737684263 1000 MCG/ML January Active inject 1 ml Injection Every , in muslce 2 weeks 2019 once a month Zofran ODT ND 81429682451 4 MG Orally Active 1 tablet on every 8 hrs the tongue and allow to dissolve Ultram ND 79113372684 50 MG Orally Active 1 tablet as every 6 hrs needed Seroquel ND 35760795076 50 MG Orally Active 1 tablet Once a day Xifaxan [facility] 23768841895 550 MG Orally Active 1 tablet Twice a day Furosemide ND 48338858666 40 MG Orally Active 1 tablet Once a day Spironolactone [facility] 79525615554 25 MG Orally Active 1 tablet Once a day with food Albuterol Sulfate [facility] 29438698350 108 (90 Base) Sep 09, Active 2 puffs as HFA MCG/ACT 2019 needed Inhalation every 6 hrs PRN Shortness or breath, cough and wheezing ProAir HFA [facility] 43048050629 108 (90 Base) Active INHALE 2 MCG/ACT PUFFS NEEDED EVERY 6 HOURS NEEDED FOR SHORTNESS OF BREATH ,COUGH,WHEE ZING Cyanocobalamin [facility] 78000552415 1000 MCG/ML Active INJECT 1 ML IN MUSCLE ONCE A MONTH Folic Acid [facility] 01333752327 1 MG Orally Active 1 tablet Once a day Gabapentin [facility] 39017079473 100 MG Orally Active 2 cap in AM Three times a 3 caps PM day Pantoprazole [facility] 86743573085 40 MG Orally Active 1 tablet Sodium Once a day Results No Known Results Summary Purpose eClinicalWorks Submission
--- NOTE | 2019-09-10 19:16 | RAD REPORT ---
EXAM DESCRIPTION: CT - [facility] - 09/10/2019 6:53 pm CLINICAL HISTORY: Fall, head and neck injury COMPARISON: None. TECHNIQUE: Axial 5 mm thick images of the head were obtained. Axial 2 mm thick images of the cervic al spine were obtained with sagittal and coronal reconstruction images generated and reviewed. All CT scans are performed using dose optimization technique as appropriate and may include automated exposure control or mA/KV adjustment according to patient size. FINDINGS: No intracranial hemorrhage, mass, edema or acute intracranial finding. No suspicion for ac praveen infarction. No extra-axial fluid collections. Mastoid air cells and paranasal sinuses are clear. No globe or orbit abnormality seen. Ventricles are normal. Cervical body height and alignment are normal. C3-4, C4-5 and C5-6 disc spaces are narrowed. C6-7 dis c space also narrowed. Endplate spurring changes are present. Multilevel bony foraminal encroachment present. Facet joint alignment is normal. No fracture or acute bony abnormality. Central canal detail is inherently limited. No paraspinal mass or hematoma. IMPRESSION: Negative CT head examination for acute or significant finding. Advanced for age multilevel degenerative disc disease. No fracture or acute finding.
[2019-09-10] MEDS ORDERED: FENTANYL CITR 100 MCG/2 ML ONE (19:35)
--- NOTE | 2019-09-10 20:33 | ER ---
Nurse's Notes [facility] Name: Bella Barron Age: 59 yrs Sex: Female : 1960 Arrival Date: 09/10/2019 Time: 17:59 Bed 25 Private MD: Diagnosis: Fall on same level from slipping, tripping and stumbling;Pain in shoulder;Superficial injury of head Presentation: 09/10 18:29 Presenting complaint: Patient states: Pt fell in the shower today. Hit head. Denies ca1 LOC. Not on blood thinners. EMS said they didn't feel like they needed to bring me to the ER but they said on our time make sure we get a CT of the Head. Reports a little bit of nausea earlier but took nausea meds and it's gone now. Pt reports tenderness on the back. Denies headache. Transition of care: patient was not received from another setting of care. Onset of symptoms was September 10, 2019. Risk Assessment: Do you want to hurt yourself or someone else? Patient reports no desire to harm self or others. Initial Sepsis Screen: Does the patient meet any 2 criteria? No. Patient's initial sepsis screen is negative. Does the patient have a suspected source of infection? No. Patient's initial sepsis screen is negative. Care prior to arrival: None. 18:29 Method Of Arrival: Wheelchair ca1 18:29 Acuity: OLEG 4 ca1 Historical: - Allergies: 18:33 Iodine; ca1 18:33 Phenergan; ca1 18:33 Rocephin; ca1 - PMHx: 18:33 Cirrhosis; Crohn's; Depression; Liver disease; ocd; ca1 - Immunization history:: Adult Immunizations up to date, Last tetanus immunization: < 5 years ago Flu vaccine is up to date. - Coronavirus screen:: The patient has NOT traveled to [place], [place], or [place] in the past 14 days. The patient has NOT had contact with known/suspected case of Coronavirus?. - Social history:: Smoking status: Patient denies any tobacco usage or history of. - Ebola Screening: : Patient negative for fever greater than or equal to 101.5 degrees Fahrenheit, and additional compatible Ebola Virus Disease symptoms Patient denies exposure to infectious person Patient denies travel to an Ebola-affected area in the 21 days before illness onset No symptoms or risks identified at this time. Screenin:13 Abuse screen: Denies threats or abuse. Nutritional screening: No deficits noted. vc Tuberculosis screening: No symptoms or risk factors identified. Fall Risk Fall in past 12 months (25 points). No IV (0 pts). Total Schaefer Fall Scale indicates Low Risk Score (25-44 pts). Fall prevention measures have been instituted. Side Rails Up X 2 Placed close to Nursing Station. Assessment: 20:17 General: Appears in no apparent distress. uncomfortable, Behavior is calm, cooperative, vc appropriate for age. Pain: Complains of pain in tail bone, left shoulder. Neuro: Level of Consciousness is awake, alert, obeys commands, Oriented to person, place, time. Cardiovascular: Capillary refill < 3 seconds. Respiratory: Airway is patent Respiratory effort is even, unlabored. GI: No signs and/or symptoms were reported involving the gastrointestinal system. : No deficits noted. EENT: No deficits noted. Derm: Skin is dry. Musculoskeletal: Reports pain in tailbone and left shoulder. 20:20 Reassessment: Patient and/or family updated on plan of care and expected duration. Pain vc level reassessed. x ray at bedside. 20:40 Reassessment: Patient and/or family updated on plan of care and expected duration. Pain vc level reassessed. Patient is alert, oriented x 3, equal unlabored respirations, skin warm/dry/pink. Provider at bedside Patient states feeling better. Vital Signs: 18:33 BP 103 / 71; Pulse 70; Resp 16 S; Temp 97.6(O); Pulse Ox 99% on R/A; Weight 87.09 kg ca1 (R); Height 4 ft. 11 in. (149.86 cm) (R); Pain 7/10; 19:18 BP 104 / 55; Pulse 74; Resp 15; Pulse Ox 100% on R/A; vc 19:35 BP 105 / 61; Pulse 75; Resp 16; Pulse Ox 100% on R/A; vc 18:33 Body Mass Index 38.78 (87.09 kg, 149.86 cm) ca1 ED Course: 17:59 Patient arrived in ED. as 18:32 Triage completed. ca1 18:33 Arm band placed on left wrist. ca1 18:36 Ramandeep Mcdonough FNP-C is PHCP. kb 18:36 Beau Encarnacion MD is Attending Physician. kb 18:55 Gaby Newby, RN is Primary Nurse. vc 19:00 Patient has correct armband on for positive identification. Bed in low position. Call vc light in reach. Side rails up X 1. 19:00 Pulse ox on. NIBP on. vc 19:22 CT Head C Spine In Process Unspecified. EDMS 20:37 Chest Single View XRAY In Process Unspecified. EDMS 20:45 No provider procedures requiring assistance completed. Patient did not have IV access vc during this emergency room visit. Administered Medications: 19:40 Drug: fentaNYL (PF) 50 mcg Route: IM; Site: right deltoid; vc Outcome: 20:33 Discharge ordered by . kb 20:45 Discharged to home ambulatory, with significant other. vc 20:45 Condition: good 20:45 Condition: good 20:45 Discharge instructions given to patient, significant other, Instructed on discharge instructions, follow up and referral plans. Demonstrated understanding of instructions, follow-up care. 20:47 Patient left the ED. vc Signatures: Dispatcher [employer] EDMS Ramandeep Mcdonough, LIFT SUPERVISOR-C LIFT SUPERVISOR-Mare Mabry as Alycia aPulino, RN RN ca1 Gaby Newby, AMARILIS RN vc
--- NOTE | 2019-09-10 20:34 | EDPHYS ---
Physician Documentation [facility] Name: Bella Barron Age: 59 yrs Sex: Female : 1960 Arrival Date: 09/10/2019 Time: 17:59 Bed 25 Private MD: ED Physician Beau Encarnacion HPI: 09/10 20:29 This 59 yrs old Female presents to ER via Wheelchair with complaints of Fall kb Injury. 20:29 Details of fall: The patient fell from an upright position, while standing. Onset: The kb symptoms/episode began/occurred this morning, at 11:00. Associated injuries: The patient sustained injury to the head, anterior aspect of right shoulder and anterior aspect of left shoulder, painful injury. Severity of symptoms: At their worst the symptoms were mild, moderate, in the emergency department the symptoms are unchanged. The patient has not experienced similar symptoms in the past. The patient has not recently seen a physician. Pt reports she slipped in the shower this morning. c/o bilateral shoulder pain. states she hit her head so they came to get a scan. Historical: - Allergies: 18:33 Iodine; ca1 18:33 Phenergan; ca1 18:33 Rocephin; ca1 - PMHx: 18:33 Cirrhosis; Crohn's; Depression; Liver disease; ocd; ca1 - Immunization history:: Adult Immunizations up to date, Last tetanus immunization: < 5 years ago Flu vaccine is up to date. - Coronavirus screen:: The patient has NOT traveled to [place], [place], or [place] in the past 14 days. The patient has NOT had contact with known/suspected case of Coronavirus?. - Social history:: Smoking status: Patient denies any tobacco usage or history of. - Ebola Screening: : Patient negative for fever greater than or equal to 101.5 degrees Fahrenheit, and additional compatible Ebola Virus Disease symptoms Patient denies exposure to infectious person Patient denies travel to an Ebola-affected area in the 21 days before illness onset No symptoms or risks identified at this time. ROS: 20:30 Constitutional: Negative for fever, chills, and weight loss, ENT: Negative for injury, kb pain, and discharge, Neck: Negative for injury, pain, and swelling, Cardiovascular: Negative for chest pain, palpitations, and edema, Respiratory: Negative for shortness of breath, cough, wheezing, and pleuritic chest pain, Abdomen/GI: Negative for abdominal pain, nausea, vomiting, diarrhea, and constipation, Back: Negative for injury and pain, : Negative for injury, bleeding, discharge, and swelling, Skin: Negative for injury, rash, and discoloration, Neuro: Negative for headache, weakness, numbness, tingling, and seizure. 20:30 MS/extremity: Positive for pain, tenderness, of the anterior aspect of right shoulder and anterior aspect of left shoulder. Exam: 20:30 Constitutional: This is a well developed, well nourished patient who is awake, alert, kb and in no acute distress. Head/Face: Normocephalic, atraumatic. ENT: Nares patent. No nasal discharge, no septal abnormalities noted. Tympanic membranes are normal and external auditory canals are clear. Oropharynx with no redness, swelling, or masses, exudates, or evidence of obstruction, uvula midline. Mucous membranes moist. Neck: Trachea midline, no thyromegaly or masses palpated, and no cervical lymphadenopathy. Supple, full range of motion without nuchal rigidity, or vertebral point tenderness. No Meningismus. Chest/axilla: Normal chest wall appearance and motion. Nontender with no deformity. No lesions are appreciated. Cardiovascular: Regular rate and rhythm with a normal S1 and S2. No gallops, murmurs, or rubs. Normal PMI, no JVD. No pulse deficits. Respiratory: Lungs have equal breath sounds bilaterally, clear to auscultation and percussion. No rales, rhonchi or wheezes noted. No increased work of breathing, no retractions or nasal flaring. Abdomen/GI: Soft, non-tender, with normal bowel sounds. No distension or tympany. No guarding or rebound. No evidence of tenderness throughout. Skin: Warm, dry with normal turgor. Normal color with no rashes, no lesions, and no evidence of cellulitis. Neuro: Awake and alert, GCS 15, oriented to person, place, time, and situation. Cranial nerves II-XII grossly intact. Motor strength 5/5 in all extremities. Sensory grossly intact. Cerebellar exam normal. Normal gait. 20:30 Musculoskeletal/extremity: Extremities: grossly normal except: noted in the anterior aspect of left shoulder: tenderness, ROM: limited active range of motion due to pain, in the anterior aspect of right shoulder and anterior aspect of left shoulder, Circulation is intact in all extremities. Sensation intact. Vital Signs: 18:33 BP 103 / 71; Pulse 70; Resp 16 S; Temp 97.6(O); Pulse Ox 99% on R/A; Weight 87.09 kg ca1 (R); Height 4 ft. 11 in. (149.86 cm) (R); Pain 7/10; 19:18 BP 104 / 55; Pulse 74; Resp 15; Pulse Ox 100% on R/A; vc 19:35 BP 105 / 61; Pulse 75; Resp 16; Pulse Ox 100% on R/A; vc 18:33 Body Mass Index 38.78 (87.09 kg, 149.86 cm) ca1 MDM: 18:36 Patient medically screened. kb 20:32 Data reviewed: vital signs. Data interpreted: Pulse oximetry: on room air is 100 %. kb Interpretation: normal. Counseling: I had a detailed discussion with the patient and/or guardian regarding: the historical points, exam findings, and any diagnostic results supporting the discharge/admit diagnosis, radiology results, the need for outpatient follow up, a family practitioner, to return to the emergency department if symptoms worsen or persist or if there are any questions or concerns that arise at home. 09/10 18:36 Order name: CT Head C Spine; Complete Time: 19:26 kb 09/10 19:29 Order name: Chest Single View XRAY kb Administered Medications: 19:40 Drug: fentaNYL (PF) 50 mcg Route: IM; Site: right deltoid; vc Disposition: 09/11 07:02 Co-signature as Attending Physician, Beau Encarnacion MD. rn Disposition: 09/10/19 20:33 Discharged to Home. Impression: Fall on same level from slipping, tripping and stumbling, Pain in shoulder, Superficial injury of head. - Condition is Stable. - Discharge Instructions: Musculoskeletal Pain, Fall Prevention in the Home, [id number], Head Injury, Adult, [id number]. - Medication Reconciliation Form, Thank You Letter, Antibiotic Education, Prescription Opioid Use form. - Follow up: Emergency Department; When: As needed; Reason: Worsening of condition. Follow up: Private Physician; When: 2 - 3 days; Reason: Recheck today's complaints, Continuance of care, Re-evaluation by your physician. Signatures: Dispatcher [employer] EDMS Ramandeep Mcdonough, DIAGNOSTIC TECH-C DIAGNOSTIC TECH-Ckb Beau Encarnacion MD MD rn Lora, Alycia RN RN Gaby Moreno RN RN vc Corrections: (The following items were deleted from the chart) 09/10 20:47 20:33 09/10/2019 20:33 Discharged to Home. Impression: Fall on same level from vc slipping, tripping and stumbling; Pain in shoulder; Superficial injury of head. Condition is Stable. Forms are Medication Reconciliation Form, Thank You Letter, Antibiotic Education, Prescription Opioid Use. Follow up: Emergency Department; When: As needed; Reason: Worsening of condition. Follow up: Private Physician; When: 2 - 3 days; Reason: Recheck today's complaints, Continuance of care, Re-evaluation by your physician. kb
--- NOTE | 2019-09-10 20:56 | RAD REPORT ---
EXAM DESCRIPTION: RAD - Chest Single View - 09/10/2019 8:33 pm CLINICAL HISTORY: PAIN, fall with chest trauma COMPARISON: Chest Single View dated 03/17/2018; Chest Single View dated 03/07/2018 TECHNIQUE: AP portable chest image was obtained 09/10/2019 8:33 pm . FINDINGS: Lungs are clear. Heart and vasculature are normal. No measurable pleural effusion and no p neumothorax. No acute bony abnormality seen. No acute aortic findings suspected. IMPRESSION: No acute cardiopulmonary process. No significant interval change.
[2019-09-10 22:13] VITALS: TEMP 97.6
[2019-09-10 22:15] VITALS: O2SAT 100
[2019-09-10 22:16] VITALS: BP 105/61
== END 2019-09-10 20:47 | disposition home or self-care (01) ==
LOC: ER 17:58
DX: S00.90XA Unspecified superficial injury of unspecified part of head, initial encounter (principal); M25.511 Pain in right shoulder; W01.0XXA Fall on same level from slipping, tripping and stumbling without subsequent striking against object, initial encounter; Y93.E1 Activity, personal bathing and showering; Y92.012 Bathroom of single-family (private) house as the place of occurrence of the external cause; Z91.09 Other allergy status, other than to drugs and biological substances; Z88.1 Allergy status to other antibiotic agents
CPT/HCPCS: 70450; 72125; 71045; 96372; 99283; J3010

== ENCOUNTER 2020-04-10 06:14 | Observation (INO) | payer OTHER ==
--- OUTSIDE RECORDS SUMMARY | 2020-04-10 06:19 | XMS REPORT | Clinical Summary ---
:1960 Author Organization [facility] Address [address] [place] [address] Care Team Providers Name Role Phone Calos Garcia MD Primary Care Provider Allergies Active Allergy Reactions Severity Noted Date Comments Ceftriaxone Itching 10/06/2017 Eggshell Membrane Diarrhea 10/08/2016 Egg yoke Iodine Anaphylaxis High 05/01/2016 SOB, wheezing, "my throat closes up." *pt states dioni ot have topical nor IV* * Lactulose GI Intolerance High 02/18/2020 " I get extre karla ill, I puke and pee" Promethazine Other (See Comments) 09/07/2016 Severe confusion Shellfish Derived Anaphylaxis High 05/05/2016 Medications Medication Sig Dispensed Refills Start End Status Date Date cetirizine (ZyrTEC) Take 10 mg by 0 Active 10 MG tablet mouth every morning. cyanocobalamin 1,000 Inject 1,000 0 Active mcg/mL injection mcg into the shoulder, thigh, or buttocks every 30 (thirty) days. traMADol (ULTRAM) 50 Take 50 mg by 0 Active mg tablet mouth 2 (two) times a day as needed for moderate pain. propranolol (INDERAL) Take 10 mg by 0 Active 10 MG tablet mouth 2 (two) times a day. furosemide (LASIX) 40 Take 1 tablet 90 tablet 3 01/24/2 01/10 5/ Active mg tabletIndications: (40 mg total) 020 2020 Hepatic cirrhosis, by mouth every unspecified hepatic morning. cirrhosis type, unspecified whether ascites present (HCC), MCFARLANE (nonalcoholic steatohepatitis), S/P TIPS (transjugular intrahepatic portosystemic shunt), Awaiting liver transplant, Hepatic encephalopathy (HCC), Hypokalemia lactulose Take 1 packet 270 packet 3 01/24/2 01/24/ Activ e (Kristalose) 20 gram (20 g total) by packetIndications: mouth 3 (three) MCFARLANE (nonalcoholic times a day. steatohepatitis), S/P TIPS (transjugular intrahepatic portosystemic shunt), Awaiting liver transplant, Hepatic encephalopathy (HCC), Hepatic cirrhosis, unspecified hepatic cirrhosis type, unspecified whether ascites present (HCC), Hypokalemia zinc sulfate Take 1 capsule 180 capsule 3 01/24/2 01/24/ Active (ZINCATE) 220 (50) mg (220 mg total) capsuleIndications: by mouth 2 Hepatic cirrhosis, (two) times a unspecified hepatic day. cirrhosis type, unspecified whether ascites present (HCC), MCFARLANE (nonalcoholic steatohepatitis), S/P TIPS (transjugular intrahepatic portosystemic shunt), Awaiting liver transplant, Hepatic encephalopathy (HCC), Hypokalemia spironolactone Take 1 tablet 90 tablet 3 01/24/2 01/24/ A ctive (ALDACTONE) 100 MG (100 mg total) 2020 tabletIndications: by mouth every Hepatic cirrhosis, morning. unspecified hepatic cirrhosis type, unspecified whether ascites present (HCC), MCFARLANE (nonalcoholic steatohepatitis), S/P TIPS (transjugular intrahepatic portosystemic shunt), Awaiting liver transplant, Hepatic encephalopathy (HCC), Hypokalemia magnesium oxide Take 1 tablet 90 tablet 3 01/24/2 01/24/ Active (MAG-OX) 400 mg (400 mg total) 2020 (241.3 mg magnesium) by mouth daily. tabletIndications: Hepatic cirrhosis, unspecified hepatic cirrhosis type, unspecified whether ascites present (HCC), MCFARLANE (nonalcoholic steatohepatitis), S/P TIPS (transjugular intrahepatic portosystemic shunt), Awaiting liver transplant, Hepatic encephalopathy (HCC), Hypokalemia pantoprazole Take 1 tablet 90 tablet 3 01/24/2 01/24/ Act chago (PROTONIX) 40 MG EC (40 mg total) 2020 tabletIndications: by mouth every Hepatic cirrhosis, morning. unspecified hepatic cirrhosis type, unspecified whether ascites present (HCC), MCFARLANE (nonalcoholic steatohepatitis), S/P TIPS (transjugular intrahepatic portosystemic shunt), Awaiting liver transplant, Hepatic encephalopathy (HCC), Hypokalemia senna (SENOKOT) 8.6 Take 1 tablet 90 tablet 3 01/24/2 01/24/ Active mg tabletIndications: by mouth every 020 Hepatic cirrhosis, morning. unspecified hepatic cirrhosis type, unspecified whether ascites present (HCC), MCFARLANE (nonalcoholic steatohepatitis), S/P TIPS (transjugular intrahepatic portosystemic shunt), Awaiting liver transplant, Hepatic encephalopathy (HCC), Hypokalemia methylnaltrexone Take 150 mg by 30 tablet 0 Active (Relistor) 150 mg mouth daily as 020 tabletIndications: needed Hepatic cirrhosis, (constipation). unspecified hepatic Do not take cirrhosis type, this medication unspecified whether if you are no ascites present longer actively (HCC), MCFARLANE taking (nonalcoholic Tramadol. steatohepatitis), S/P TIPS (transjugular intrahepatic portosystemic shunt), Awaiting liver transplant, Hepatic encephalopathy (HCC), Hypokalemia ondansetron ODT Take 1 tablet 30 tablet 0 Active (ZOFRAN-ODT) 4 MG (4 mg total) by 020 disintegrating mouth every 6 tabletIndications: (six) hours as Hepatic cirrhosis, needed for unspecified hepatic nausea or cirrhosis type, vomiting. unspecified whether ascites present (HCC), MCFARLANE (nonalcoholic steatohepatitis), S/P TIPS (transjugular intrahepatic portosystemic shunt), Awaiting liver transplant, Hepatic encephalopathy (HCC), Hypokalemia riFAXimin (XIFAXAN) Take 1 tablet 180 tablet 3 01/24/2 01/24 / Active 550 mg (550 mg total) 2020 tabletIndications: by mouth 2 Hepatic cirrhosis, (two) times a unspecified hepatic day. cirrhosis type, unspecified whether ascites present (HCC), MCFARLANE (nonalcoholic steatohepatitis), S/P TIPS (transjugular intrahepatic portosystemic shunt), Awaiting liver transplant, Hepatic encephalopathy (HCC), Hypokalemia SUMAtriptan (Imitrex) Take 1 tablet 30 tablet 0 01/24/2 Active 50 MG (50 mg total) 020 tabletIndications: by mouth daily Hepatic cirrhosis, as needed for unspecified hepatic migraine for up cirrhosis type, to 30 doses. unspecified whether May repeat in 2 ascites present hours if (HCC), MCFARLANE unresolved. Max (nonalcoholic dose 200 mg/day steatohepatitis), S/P TIPS (transjugular intrahepatic portosystemic shunt), Awaiting liver transplant, Hepatic encephalopathy (HCC), Hypokalemia gabapentin Take 1 tablet 30 tablet 0 02/20/ Activ e (NEURONTIN) 600 mg (600 mg total) 020 tabletIndications: by mouth Hepatic cirrhosis, nightly. With unspecified hepatic Kidney disease, cirrhosis type, 1/2 dose is unspecified whether recommended, ascites present may cut 600 mg (HCC), MCFARLANE tablet in half (nonalcoholic steatohepatitis), S/P TIPS (transjugular intrahepatic portosystemic shunt), Awaiting liver transplant, Hepatic encephalopathy (HCC), Hypokalemia clonAZEPAM (KlonoPIN) Take 1 tablet 60 tablet 0 //2 09/ 7/ Active 0.5 MG tablet (0.5 mg total) 020 2019 by mouth 2 (two) times a day for 30 days. eszopiclone (LUNESTA) Take 2 mg by 0 09/03 / Discontinued 2 MG tablet mouth nightly. 2020 (Re order) Take immediately before bedtime furosemide (LASIX) 40 Take 40 mg by 0 07/12 0/ Discontinued mg tablet mouth every 2018 (Reorder ) morning. gabapentin Take 600 mg by 0 09/03/ Disc ontinued (NEURONTIN) 600 mg mouth 3 (three) 2020 (Reorder) tablet times a day. pantoprazole Take 40 mg by 0 15/ Dis continued (PROTONIX) 40 MG EC mouth every 2019 (Reorder) tablet morning. QUEtiapine (SEROquel) Take 200 mg by 0 15/ Discontinued 200 MG tablet mouth nightly. 2020 ( Reorder) methylnaltrexone Take 150 mg by 0 15/ Discontinued (RELISTOR) 150 mg mouth daily as 2020 (Reorder) tablet needed (constipation). Do not take this medication if you are no longer actively taking Tramadol. riFAXimin (XIFAXAN) Take 550 mg by 0 /15 / Discontinued 550 mg tablet mouth 2 (two) 2020 (R eorder) times a day. senna (SENOKOT) 8.6 Take 1 tablet 0 01/24/ Discontinued mg tablet by mouth every 2019 (Reor jessica) morning. spironolactone Take 100 mg by 0 01/24/ Discontinued (ALDACTONE) 100 MG mouth every 2019 (Reorder) tablet morning. potassium chloride Take 40 mEq by 0 06/23/ Discontinued (K-DUR) 20 MEQ CR mouth every 2018 (Reorder) tablet morning. ondansetron ODT Take 4 mg by 0 01/24/ D iscontinued (ZOFRAN-ODT) 4 MG mouth every 4 2019 (Reorder) disintegrating tablet (four) hours as needed for nausea or vomiting. lactulose Take 1 packet 0 04/20/ Discon tinued (KRISTALOSE) 20 gram by mouth 2018 (Reorder) packet (three) times a day. SUMAtriptan (IMITREX) Take 1 tablet 9 tablet 1 02/13/01/10 5/ Discontinued 50 MG tablet (50 mg total) 2019 (Re order) by mouth daily as needed for migraine for up to 1 dose. May repeat in 2 hours if unresolved. Max dose 200 mg/day methylPREDNISolone Take 1 tablet 2 tablet 0 04/10/2 04/14/ Discontinued (MEDROL) 32 MG (32 mg total) 2018 ( Stop Taking tabletIndications: by mouth daily at Discharge) MCFARLANE (nonalcoholic for 2 doses. steatohepatitis), S/P TIPS (transjugular intrahepatic portosystemic shunt), Awaiting liver transplant, Cancer screening, CAM (acute kidney injury) (HCC), Alcoholic cirrhosis of liver with ascites (HCC), At high risk for excess fluid volume, Allergy history, radiographic dye diphenhydrAMINE Take 2 capsules 2 capsule 0 04/10/2 04/14/ Discontinued (BENADRYL) 25 mg (50 mg total) 2018 capsuleIndications: by mouth once MCFARLANE (nonalcoholic for 1 dose. steatohepatitis), S/P TIPS (transjugular intrahepatic portosystemic shunt), Awaiting liver transplant, Cancer screening, CAM (acute kidney injury) (HCC), Alcoholic cirrhosis of liver with ascites (HCC), At high risk for excess fluid volume, Allergy history, radiographic dye topiramate (TOPAMAX) Take 50 mg by 0 01/24 / Discontinued 25 MG tablet mouth nightly. 2019 (R eorder) minocycline (DYNACIN) Take 1 tablet 14 tablet 0 2 04/12 0/ 100 MG tablet (100 mg total) 2018 by mouth 2 (two) times a day for 7 days. lactulose Take 1 packet 270 packet 3 2 01/24/ Disco ntinued (KRISTALOSE) 20 gram (20 g total) by 019 202 0 (Reorder) packetIndications: mouth 3 (three) MCFARLANE (nonalcoholic times a day. steatohepatitis), S/P TIPS (transjugular intrahepatic portosystemic shunt), Awaiting liver transplant, Hepatic encephalopathy (HCC) escitalopram Take 1 tablet 30 tablet 2 2 07/25/ Dis continued (LEXAPRO) 10 MG (10 mg total) 2018 (Reorder) tablet by mouth daily for 90 days. magnesium oxide 250 Take 400 mg by 0 09/01 / Discontinued mg magnesium tablet mouth daily. 2020 zinc sulfate Take 1 capsule 30 capsule 0 2 07/19/ D iscontinued (ZINCATE) 220 (50) mg (220 mg total) 019 201 9 (Med List capsule by mouth daily Clean up) for 30 days. May use over the counter Zinc (50 mg) potassium chloride Take 2 tablets 180 tablet 3 01/24 / Discontinued (K-DUR) 20 MEQ CR (40 mEq total) 2019 (Reorder) tabletIndications: by mouth every Hepatic cirrhosis, morning. unspecified hepatic cirrhosis type, unspecified whether ascites present (HCC), MCFARLANE (nonalcoholic steatohepatitis), S/P TIPS (transjugular intrahepatic portosystemic shunt), Awaiting liver transplant, Hypokalemia furosemide (LASIX) 40 Take 1 tablet 90 tablet 3 2 01/10 5/ Discontinued mg tabletIndications: (40 mg total) 2019 (Reorder) Hepatic cirrhosis, by mouth every unspecified hepatic morning. cirrhosis type, unspecified whether ascites present (HCC), MCFARLANE (nonalcoholic steatohepatitis), S/P TIPS (transjugular intrahepatic portosystemic shunt), Awaiting liver transplant zinc sulfate Take 1 capsule 180 capsule 3 2 01/24/ Discontinued (ZINCATE) 220 (50) mg (220 mg total) 019 202 0 (Reorder) capsuleIndications: by mouth 2 Hepatic cirrhosis, (two) times a unspecified hepatic day. cirrhosis type, unspecified whether ascites present (HCC), MCFARLANE (nonalcoholic steatohepatitis), S/P TIPS (transjugular intrahepatic portosystemic shunt), Awaiting liver transplant escitalopram TAKE 1 TABLET 21 tablet 2 07/27/2 01/24/ Dis continued (LEXAPRO) 10 MG BY MOUTH EVERY 019 2019 (Reorder) tablet DAY brexpiprazole Take 2 mg by 0 03/19/ Dis continued (REXULTI) 2 mg tablet mouth daily. 2019 (Stop Taking tablet at [facility]) magnesium oxide Take 400 mg by 0 01/24/ Discontinued (MAG-OX) 400 mg mouth daily. 2019 ( Reorder) (241.3 mg magnesium) tablet eszopiclone (LUNESTA) Take 1 tablet 3 tablet 0 08/13/ 1 MG tablet (1 mg total) by 2019 mouth nightly for 3 days. Take immediately before bedtime gabapentin Take 1 tablet 90 tablet 0 2 10/03/ Disco ntinued (NEURONTIN) 600 mg (600 mg total) 2019 (Med List tablet by mouth Cleanup) nightly for 30 days. gabapentin Take 1 capsule 60 capsule 2 2 10/03/ Dis continued (NEURONTIN) 300 mg (300 mg total) 2019 (Med List capsule by mouth 2 Cleanup) (two) times a day for 30 days. Breakfast 300 mg, Lunch 300 mg gabapentin-lidocaine- 1 application 2 0 2 / menthol 300-4-1 (two) times a 2019 mg-%-% kit, cream and day for 30 capsule days. Prescription given already for a compounding pharmacy to fill eszopiclone (LUNESTA) Take 2 mg by 0 / / Discontinued 2 MG tablet mouth nightly. 2019 (Re order) Take immediately before bedtime eszopiclone (LUNESTA) Take 1 tablet 0 10/14/2 03/0 5/ Discontinued 2 MG tablet (2 mg total) by 2019 (R eorder) mouth nightly for 31 days. Okay to cut dose in half if full dose not needed hydrocortisone Insert 1 6 suppository 0 10/14/2 10/20/ E xpired (ANUSOL-HC) 25 mg suppository (25 2019 suppository mg total) into the rectum daily for 6 days. eszopiclone (LUNESTA) Take 1 tablet 30 tablet 0 //2 04/0 4/ 2 MG tablet (2 mg total) by 2019 mouth nightly for 30 days. Okay to cut dose in half if full dose not needed famotidine (Pepcid) Take 1 tablet 2 tablet 0 12/21/2 01/24/ Discontinued 20 MG tablet (20 mg total) 2019 (Re order) by mouth daily. predniSONE Take 2 tablets 4 tablet 0 12/21/2 12/24/ Disc ontinued (DELTASONE) 20 mg the night 2019 (S top Taking tablet before and 2 at Disc [facility]) tablets the morning of test diphenhydrAMINE Take 3 tablets 6 tablet 0 12/21/2 02/20/ Discontinued (Benadryl Allergy) 25 the day before, (Stop Taking mg tablet and take 3 at [facility]) tablets the day of eszopiclone (LUNESTA) Take 1 mg by 0 01/10 / Discontinued 1 MG tablet mouth nightly. 2019 (Re order) Take immediately before bedtime gabapentin Take 600 mg by 0 10/ Disc ontinued (NEURONTIN) 600 mg mouth nightly. 2019 (Reorder) tablet gabapentin Take 300 mg by 0 10/ Disc ontinued (NEURONTIN) 300 mg mouth 2 (two) 2019 (Stop Taking capsule times a day. at Disc [facility]) 9am and 2pm gabapentin-lidocaine- 1 Dose nightly. 0 / Discontinued menthoL (Active-Pac) 2019 (Error) 300-4-1 mg-%-% kit,gel & capsule eszopiclone (LUNESTA) Take 1 tablet 14 tablet 0 //2 06/1 5/ 1 MG tablet (1 mg total) by 2019 mouth nightly for 14 days. Take immediately before bedtime gabapentin Take 1 tablet 0 01/19/2 01/24/ Disco ntinued (NEURONTIN) 600 mg (600 mg total) 2019 (Reorder) tablet by mouth 2 (two) times a day. famotidine (Pepcid) Take 1 tablet 90 tablet 3 01/24/2 02/20/ Discontinued 20 MG (20 mg total) 2019 (Stop Taking tabletIndications: by mouth daily. at Discharge) Hepatic cirrhosis, unspecified hepatic cirrhosis type, unspecified whether ascites present (HCC), MCFARLANE (nonalcoholic steatohepatitis), S/P TIPS (transjugular intrahepatic portosystemic shunt), Awaiting liver transplant, Hepatic encephalopathy (HCC), Hypokalemia gabapentin Take 1 tablet 60 tablet 11 02/20/ Disco ntinued (NEURONTIN) 600 mg (600 mg total) 2019 (Reorder) tabletIndications: by mouth 2 Hepatic cirrhosis, (two) times a unspecified hepatic day. cirrhosis type, unspecified whether ascites present (HCC), MCFARLANE (nonalcoholic steatohepatitis), S/P TIPS (transjugular intrahepatic portosystemic shunt), Awaiting liver transplant, Hepatic encephalopathy (HCC), Hypokalemia potassium chloride Take 2 tablets 180 tablet 3 01/24/2 02/20 / Discontinued (K-DUR) 20 MEQ CR (40 mEq total) 2019 (Stop Taking tabletIndications: by mouth every at Discharge) Hepatic cirrhosis, morning. unspecified hepatic cirrhosis type, unspecified whether ascites present (HCC), MCFARLANE (nonalcoholic steatohepatitis), S/P TIPS (transjugular intrahepatic portosystemic shunt), Awaiting liver transplant, Hypokalemia, Hepatic encephalopathy (HCC) topiramate (TOPAMAX) Take 2 tablets 28 tablet 0 01/24/01/11 9 25 MG (50 mg total) 2019 tabletIndications: by mouth Hepatic cirrhosis, nightly for 14 unspecified hepatic days. cirrhosis type, unspecified whether ascites present (HCC), MCFARLANE (nonalcoholic steatohepatitis), S/P TIPS (transjugular intrahepatic portosystemic shunt), Awaiting liver transplant, Hepatic encephalopathy (HCC), Hypokalemia QUEtiapine (SEROquel) Take 1 tablet 14 tablet 0 01/24/2 01/11 200 MG (200 mg total) 2019 tabletIndications: by mouth Hepatic cirrhosis, nightly for 14 unspecified hepatic days. cirrhosis type, unspecified whether ascites present (HCC), MCFARLANE (nonalcoholic steatohepatitis), S/P TIPS (transjugular intrahepatic portosystemic shunt), Awaiting liver transplant, Hepatic encephalopathy (HCC), Hypokalemia escitalopram Take 1 tablet 14 tablet 0 01/24/2 Exp ired (LEXAPRO) 10 MG (10 mg total) 020 2019 tabletIndications: by mouth daily Hepatic cirrhosis, for 14 days. unspecified hepatic cirrhosis type, unspecified whether ascites present (HCC), MCFARLANE (nonalcoholic steatohepatitis), S/P TIPS (transjugular intrahepatic portosystemic shunt), Awaiting liver transplant, Hepatic encephalopathy (HCC), Hypokalemia gabapentin Take 0.5 30 tablet 0 02/20/2 02/20/ Discontin ued (NEURONTIN) 600 mg tablets (300 mg 020 2019 (Reorder) tabletIndications: total) by mouth Hepatic cirrhosis, 2 (two) times a unspecified hepatic day for 30 cirrhosis type, days. With unspecified whether Kidney disease, ascites present 1/2 dose is (HCC), MCFARLANE recommended, (nonalcoholic may cut 600 mg steatohepatitis), S/P tablet in half TIPS (transjugular intrahepatic portosystemic shunt), Awaiting liver transplant, Hepatic encephalopathy (HCC), Hypokalemia thiamine 100 MG Take 1 tablet 30 tablet 0 02/20/2 03/22/ tablet (100 mg total) 020 2019 by mouth daily for 30 days. sodium bicarbonate Take 2 tablets 56 tablet 0 2 03/06/ 650 mg tablet (1,300 mg 020 2019 total) by mouth 2 (two) times a day for 14 days. clonAZEPAM (KlonoPIN) Take 1 tablet 60 tablet 0 8/ Discontinued 0.5 MG tablet (0.5 mg total) 2019 by mouth 2 (two) times a day for 30 days. Active Problems Patient Care Coordination Note [place] RN Stephanie [phone] [place] RN Marianela [phone] [place] Office [phone] Problem Noted Date Tremor of unknown origin 03/17/2020 Weakness generalized 01/18/2020 Confusion 10/13/2019 Acute hepatic encephalopathy 06/16/2019 Slurred speech 05/08/2019 CAM (acute kidney injury) 05/08/2019 UTI (urinary tract infection) 04/14/2019 Altered mental status, unspecified 03/19/2019 Acute abdominal pain 11/12/2018 Weakness 08/20/2018 Chest pain on breathing 08/20/2018 Non-intractable vomiting with nausea 08/20/2018 Gastroesophageal reflux disease 08/20/2018 CAM (acute kidney injury) 08/20/2018 Disorder of liver 08/20/2018 Liver cirrhosis 07/05/2018 Acute hepatic encephalopathy 10/05/2017 Hematochezia 12/11/2016 Melena 12/11/2016 Overview: Added automatically from request for zoe somers [id number] Bipolar disorder, unspecified 10/09/2016 Persistent depressive disorder 10/09/2016 Alcoholic cirrhosis of liver 09/12/2016 Hepatic encephalopathy 06/26/2016 S/P TIPS (transjugular intrahepatic portosystemic shun t) 05/08/2016 Thrombocytopenia 05/04/2016 Cirrhosis of liver not due to alcohol 05/04/2016 Malnutrition 05/04/2016 Resolved Problems Problem Noted Date Resolved Date Confusion 09/01/2019 09/03/2019 TIA (transient ischemic attack) 05/07/2019 05/08/20 19 Altered mental status 03/19/2019 06/18/2019 Encounters Date Type Specialty Care Team Description 04/07/2020 Telephone Consult Cardiology Angela Roper ansplant candidate (Primary Dx); MD Meek Preoperative ca rdiovascular examination; Hypertensive he art disease without heart failure; Counseling on h ealth promotion and disease prevention; Dyslipidemia 03/31/2020 Travel 03/25/2020 Telephone Cardiology Subhash Huffman MA 03/23/2020 Travel 03/22/2020 Patient Outreach Quality Olivia Hill, AMARILIS 03/17/2020 Hospital Encounter General Internal oRmero Limon T remor of unknown origin (Primary Dx); - Medicine DO Lactic acidosis; 03/19/2020 Alejandro Pierson, Cirrhosis of liver not due to alcohol (HCC); MD Aramis Alcoholic cirrh osis, unspecified whether ascites present (HCC) 03/17/2020 Travel 03/16/2020 Telephone Cardiology Subhash Huffman MA 03/14/2020 Hospital Encounter Procedural Angela Roper ransplant Cardiology MD Meek candidate 03/14/2020 Travel 03/07/2020 Travel 03/04/2020 Hospital Encounter Sleep Medicine Ivet Reddy MD 03/03/2020 Telephone General Internal Lee Ac Medicine RN 03/03/2020 Travel 02/29/2020 Telephone Sleep Medicine Michelle Rascon, Corinne 02/24/2020 Patient Outreach Quality [facility], [facility] 02/23/2020 Patient Outreach Quality [facility], [facility] 02/23/2020 Telephone Transplant Padmini Soares MA 02/18/2020 Hospital Encounter General Internal Danyel Grubbs Altered mental status, unspecified altered mental status type (Primary Dx); - Medicine MD Rodriguez Confusion; 02/21/2020 Heriberto York, Cirrhosis of liver without ascites, unspecified hepatic cirrhosis type (HCC); Encephalopathy; Hepatic cirrhos is, unspecified hepatic cirrhosis type, unspecified whether ascites present (HCC); MCFARLANE (nonalcoho lic steatohepatitis); S/P TIPS (trans jugular intrahepatic portosystemic shunt); Awaiting liver transplant; Hepatic encepha lopathy (HCC); Hypokalemia 02/18/2020 Telephone [facility]plant [facility] for AMARILIS Castro OLT 02/18/2020 Travel 02/18/2020 Telephone Sleep Medicine [employer] Abiodun, Corinne 02/16/2020 Telephone Sleep Medicine Michelle Abiodun, Corinne 02/16/2020 Transcribe Orders Sleep Medicine [employer] Abiodun, Obstr uctive sleep Corinne apnea (adult) (pediatric) (Pr imary Dx) 02/15/2020 Telephone Transplant Erika Brown MA Speak with coord 02/15/2020 Telephone Transplant Paramjit Valles Speak to co ordinator 02/08/2020 Telephone Transplant Elham, Sergey-up GRACY Ballard 02/05/2020 Telephone Transplant Jn [place] follow up call AMARILIS Castro 02/04/2020 Telephone Transplant Jn [place] report to AMARILIS Castro coordinator 02/02/2020 Telephone Transplant [place] call back AMARILIS Castro 02/01/2020 Telephone Transplant Jn [place] [facility] test (+) AMARILIS Castro 01/26/2020 Telephone Transplant Renae Chadwick MA PT Eval 01/25/2020 Telephone Transplant [place] Med Refill AMARILIS Castro 01/25/2020 Telephone Transplant Jn [place] Return Call AMARILIS Castro 01/19/2020 Telephone Transplant Jn [place] update AMARILIS Castro 01/19/2020 Documentation Transplant Del[place], Jn MELD 17. Rece rt AMARILIS Castro 04/18/20. 01/18/2020 Hospital Encounter General Internal Diana Bangura Weak ness generalized (Primary Dx); - Medicine MD Bin Acute kidney injury superimposed on electrical/instrument technician yo kidney disease (HCC); 01/20/2020 Pierce Garcia Chronic abdo garret pain; MD Blayne Hepatic encepha lopathy (HCC) 01/18/2020 Travel 01/15/2020 Telephone Transplant [facility] [place] [facility] lab orde christiana Castro RN clarification 01/15/2020 Orders Only Cardiology Ramandeep Rascon, Liver aranda splant MA candidate (Prim polo Dx) 01/08/2020 Documentation Transplant [place], Jn MELD 16. Rece rt AMARILIS Castro 04/07/20. 01/08/2020 Telephone Transplant [facility] Return Call Matthew, AMARILIS 01/07/2020 Hospital Encounter General Internal Diana Bangura Hepa tic encephalopathy (HCC) (Primary Dx); - Víctor Steward MD Multiple falls 01/11/2020 Pierce Garcia MD Carbajal, Hector, MD 01/07/2020 Travel 01/07/2020 Telephone Transplant [facility] Return Call Matthew, AMARILIS 01/06/2020 Telephone Transplant [facility] PT report AMARILIS Castro 12/31/2019 Telephone Transplant Renae Chadwick MA Physical The rapy 12/30/2019 Patient Outreach Quality Tashia Salazar RN 12/30/2019 Telephone Transplant Padmini Soares MA 12/30/2019 Telephone General Internal Lee Ac Medicine RN 12/30/2019 Telephone Transplant Jn [place] Return Call Matthew, AMARILIS 12/25/2019 Documentation Transplant [place], Jn MELD 15. Rece rt AMARILIS Castro 03/24/20. 12/24/2019 Documentation Transplant [place], Jn MELD 14. Rece rt AMARILIS Castro 03/23/20. 12/23/2019 Hospital Encounter General Internal Pierce Garcia CK D (chronic kidney disease) stage 3, GFR 30-59 ml/min (HCC) (Primary Dx); - Víctor Cisneros MD Cirrhosis of liver not due to alcohol (H CC) 12/25/2019 Aramis Girard MD 12/23/2019 Telephone Transplant CristoferJn unable to do C v CTA Matthew, AMARILIS d/t elevated cr ea and e.GFR 12/22/2019 Orders Only Cardiology Ramandeep Rascon MA 12/22/2019 Travel 12/21/2019 Documentation Transplant CristoferJn 12/02/19 - Tel emedicine Matthew, AMARILIS with Dr. Garcia 12/21/2019 Documentation Transplant SukhjinderJn bronson 11/02/19 - Tel emedicine AMARILIS Castro with Dr. Garcia 12/18/2019 Telephone Transplant DelcanoJn, AMARILIS 12/18/2019 Telephone Transplant Erika Brown MA Spak with coord 12/18/2019 Documentation Transplant KianaJn noble 12/02/19 - Tel emedicine AMARILIS Castro with Dr. Garcia 12/15/2019 Travel 12/11/2019 Travel 12/11/2019 Telephone Cardiology Armida, Appointment Martita, BENNETT 12/10/2019 Telephone Cardiology Armida, Appointment Martita, BENNETT 12/10/2019 Telephone Transplant Reena Paramjit Speak to co ordinator 12/09/2019 Telephone Cardiology Nicki Rascon, Appointment MA 11/30/2019 Telephone Transplant DelcanoJn telemedicine Matthew, AMARILIS 11/16/2019 Telephone Transplant DelcanoJn reporting s/s Matthew, RN 11/10/2019 Telephone Transplant DelcanoJn Return Call Matthew, RN 10/29/2019 Telephone Transplant DelcanoJn Knee injection s Matthew, AMARILIS 10/28/2019 Travel 10/28/2019 Telephone Transplant DelcanoJn Return Call Matthew, RN 10/26/2019 Telephone Transplant DelcanoJn temporary canc el Matthew, RN visits 10/19/2019 Telephone Transplant Delcano, Jn preparation H Matthew, AMARILIS 10/19/2019 Telephone Transplant DelcanoJn Return Call Matthew, RN 10/14/2019 Telephone Transplant Delcano, Jn Return Call Matthew, RN 10/14/2019 Documentation Transplant SukhjinderJn bronson MELD 23. Rece rt Matthew, AMARILIS 11/13/19. 10/12/2019 Hospital Encounter General Internal Cheo Peralta onfusion (Primary Dx); - Medicine MD Dominic Hepatic encephalopathy (HCC) 10/15/2019 Pierce Garcia MD Carbajal, Hector, MD 10/09/2019 Telephone Transplant [facility] [place] appt schedulin aylin Castro RN 10/09/2019 Telephone Transplant DelivethoJn Med Refill Matthew, AMARILIS 10/09/2019 Orders Only Transplant [facility] [place] Hepatic cirrho sis, unspecified hepatic cirrhosis type, unspecified whether ascites present (HCC) (Primary Dx); AMARILIS Castro MCFARLANE (nonalcoho lic steatohepatitis); S/P TIPS (trans jugular intrahepatic portosystemic shunt); Awaiting transp lantation of liver; Cancer screenin g 10/08/2019 Documentation Transplant DelivethoJn Labs only, . AMARILIS Castro 10/06/2019 Telephone Transplant KianaoJn call return / refill Matthew, RN on meds 10/02/2019 Telephone Transplant J[facility] [place] feet/leg cramp s AMARILIS Castro 09/30/2019 Telephone Transplant DelivethoJn blood work and abd AMARILIS Castro pain 09/24/2019 Telephone Transplant DelcanoJn report Matthew, AMARILIS 09/17/2019 Telephone Transplant Delcano, Jn Return Call Matthew, AMARILIS 09/11/2019 Telephone Transplant DelivethoJn Return Call; f ollow up AMARILIS Castro after patient f ell 09/02/2019 Documentation Transplant DelJn bronson MELD 14. Rece rt Matthew, AMARILIS 12/01/19. 09/01/2019 Hospital Encounter General Internal Lili, Amari Con fusion (Primary Dx); - Medicine Kwaku Soria MD Fall, initial encounter; 09/03/2019 Heriberto York, Nonintract able headache, unspecified chronicity pattern, unspecified headache type; Cirrhosis of li izabel without ascites, unspecified hepatic cirrhosis type (HCC) 09/01/2019 Telephone Transplant J[facility] [place] Return Call. brendon Castro RN [facility]. 08/26/2019 Telephone Transplant J[facility] [place] c/o lui Castro, AMARILIS 08/20/2019 Telephone Transplant DelivethoJn HH PT for exer girma Castro RN 08/13/2019 Telephone Transplant DelJn bronson medical supply Matthew, AMARILIS 08/13/2019 Telephone Transplant DelivethoJn Return Call AMARILIS Castro 08/10/2019 Telephone Transplant Jn [place] Return Call Matthew, AMARILIS 08/10/2019 Orders Only Cardiology Nicki Rascon, Liver trans plant MA candidate (Prim polo Dx) 07/25/2019 Refill Transplant D'Empaire Elizabeth, Med Refill 07/21/2019 Refill Transplant Jn [place] Med Refill Matthew, AMARILIS 07/16/2019 Telephone Transplant J[facility] [place] Return Call Matthew, AMARILIS 07/16/2019 Telephone Transplant DelJn bronson no BM per Matthew, AMARILIS 07/01/2019 Telephone General Internal Lee Ac, Medicine RN 06/23/2019 Refill Transplant Jn [place] Med Refill Matthew, AMARILIS 2019 Patient Outreach Formerly [facility] Miley Paz 2019 Telephone Transplant J[facility] [place] homebound [facility] Matthew, AMARILIS 06/16/2019 Hospital Encounter General Internal Denisse Solitario MD Altered mental status, unspecified alter ed mental status type (Primary Dx); - Medicine Heriberto York, Acute hepa tic encephalopathy 06/18/2019 Aramis Martin MD 06/04/2019 Office Visit Transplant D'Empaire Elizabeth, Hepatic cir rhosis, unspecified hepatic cirrhosis type, unspecified whether ascites present (HCC) (Primary Dx); Persistent depr essive disorder 06/04/2019 Documentation Transplant Nellie Lizarraga, PLUSH FINISHER 06/03/2019 Telephone Transplant [facility] [place] concerns of ish Castro, AMARILIS 05/21/2019 Telephone Transplant J[facility] [place] confusion and fatigue Matthew, AMARILIS 05/19/2019 Telephone Transplant Berenice Shah, AMARILIS 05/11/2019 Telephone Transplant J[facility] [place] Return Call Matthew, AMARILIS 05/08/2019 Telephone Transplant Jn [place] getting discha rged Matthew, AMARILIS 05/08/2019 Telephone Transplant DelJn bronson Admission Matthew, RN 05/07/2019 Emergency Neurology de [facility], 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) (Primary Dx); - Tapan Prince, TIA (transi ent ischemic attack); 05/08/2019 MD S/P TIPS (transjugular intrahepatic port osystemic shunt); Julio César Jeffery MD Weakness; Altered mental status, unspecified altered mental status type 05/07/2019 Travel 04/23/2019 Hospital Encounter Radiology JoseCalos DENYS (n onalcoholic steatohepatitis); MD Ping S/P TIPS (trans jugular intrahepatic portosystemic shunt); Awaiting liver transplant; Need for prophy lactic vaccination with Streptococcus pneumoniae (Pneumococcus) and Influenza vaccines; Cancer screenin g 04/23/2019 Hospital Encounter Procedural TomasaAngela jacobson (n onalcoholic steatohepatitis); Cardiology MD Meek S/P TIPS (trans jugular intrahepatic portosystemic shunt); Awaiting liver transplant; Cancer screenin g; CAM (acute kidn ey injury) (HCC); Alcoholic cirrh osis of liver with ascites (HCC); At high risk fo r excess fluid volume; Allergy history , radiographic dye 04/23/2019 Lab Transplant Calos Garcia (nonalco holic steatohepatitis); MD Ping S/P TIPS (trans jugular intrahepatic portosystemic shunt); Awaiting liver transplant; Cancer screenin g; CAM (acute kidn ey injury) (HCC); Alcoholic cirrh osis of liver with ascites (HCC); At high risk fo r excess fluid volume; Allergy history , radiographic dye 04/23/2019 Documentation Transplant [facility] [place] Meld Score Up date AMARILIS Castro Notification (M ELD 15. Recert 07/22/19 .) 04/23/2019 Telephone Transplant J[facility] [place] Eat before MRI AMARILIS Castro 04/20/2019 Telephone Transplant Renae Chadwick MA Resumption o f Home Health 04/20/2019 Refill Transplant Jn [place] Med Refill AMARILIS Castro 04/17/2019 Telephone Transplant J[facility] [place] Pneumonia Vacc ine AMARILIS Castro 04/16/2019 Telephone Transplant J[facility] [place] Steroids AMARILIS Castro 04/15/2019 Telephone Transplant Padmini Soares MA 04/15/2019 Telephone First Beater Mushtaq oSares RN 04/14/2019 Patient Outreach Quality Tashia Salazar RN 04/14/2019 Telephone Transplant Jn [place] RN 04/14/2019 Telephone Transplant Renae Chadwick MA Appointments 04/11/2019 Hospital Encounter General Internal Rehrer, [place] Hepat ic encephalopathy (HCC) (Primary Dx); - Medicine Curry, Anemia, unspecified type; 04/14/2019 Pierce Garcia Thrombocytop enia (HCC); MD Blayne Chronic kidney disease, unspecified CKD stage; Alejandro Pierson, Nausea; MD Aramis Acute cystitis without hematuria 04/11/2019 Travel 04/10/2019 Telephone Transplant J[facility] [place] Appointment Matthew, AMARILIS 04/10/2019 Telephone Transplant J[facility] [place] Appointment AMARILIS Castro after 04/10/2019 Immunizations Name Administration Dates Next Due FLUCELVAX QUAD PF 05/08/2016 Influenza (IM) Preservative Free 04/21/2018 Pneumococcal Conjugate 13-Valent 05/08/2016 Family History Patient is adopted Medical History Relation Name Comments No Known Problems Father No Known Problems Mother Relation Name Status Comments Father Mother Social History Tobacco Use Types Packs/Day Years Used Date Former Smoker Cigarettes 0.5 38 08/12/1976 - 0 09/07/2018 Smokeless Tobacco: Never Used Tobacco Cessation: Ready to Quit: No Comments: smokes 5 cigarettes per day Alcohol Use Drinks/Week oz/Week Comments No Former social al cohol use, quit several years ago; denies history o f heavy alcohol use Sex Assigned at Date Recorded Not on file Job Start Date Occupation Industry Not on file Not on file Not on file Travel History Travel Start Travel End No recent travel history available. COVID-19 Exposure Response Date Recorded In the last month, have you been in contact with No / Unsure 03/31/2020 4:25 PM CDT someone who was confirmed or suspected to have Coronavirus / COVID-19? Last Filed Vital Signs Vital Sign Reading Time Taken Comments Blood Pressure 96/53 03/19/2020 7:51 AM CDT Pulse 66 03/19/2020 7:51 AM CDT Temperature 36.1 C (96.9 F) 03/19/2020 7:51 AM CDT Respiratory Rate 18 03/19/2020 7:51 AM CDT Oxygen Saturation 97% 03/19/2020 7:51 AM CDT Inhaled Oxygen Concentration - - Weight 90.7 kg (200 lb) 03/21/2020 3:25 PM CDT Height 149.9 cm (4' 11") 03/21/2020 3:25 PM CDT Body Mass Index 40.4 03/21/2020 3:25 PM CDT Plan of Treatment Health Maintenance Due Date Last Done Comments COLONOSCOPY SCREENING 2011 SHINGLES VACCINES (#1) 2011 BREAST CANCER SCREENING 10/17/2018 10/17/2016, 10/09/2016, 10/09/2016 CERVICAL CANCER SCREENING 10/08/2019 10/08/2016 INFLUENZA VACCINE 05/12/2020 04/14/2019, 05/01/2018, 2017, Additional history exists Implants Implanted Type Area Insulation Manager Device Shelf Model / Identifier Expiration Serial / Date Lot Stent Endprths Viatorr Tips 8cm 10mm - [id number] Surgical N/A: N/A W L GORE 02/06/2019 [id number] / Implanted: 05/04/2016 at [id number] (Quantity not on file) Stents [id number] / [id number] Procedures Procedure Name Priority Date/Time Associated Diagnosis Comme nts ESTIMATED GFR Routine 03/19/2020 4:22 Results fo r this AM CDT procedure are i n the results section. PROTHROMBIN TIME WITH Routine 03/19/2020 4:22 Re sults for this INR AM CDT procedure are i n the results section. MAGNESIUM LEVEL Routine 03/19/2020 4:22 Results for this AM CDT procedure are i n the results section. HEPATIC FUNCTION PANEL Routine 03/19/2020 4:22 R esults for this AM CDT procedure are i n the results section. BASIC METABOLIC PANEL Routine 03/19/2020 4:22 Re sults for this AM CDT procedure are i n the results section. HC COMPLETE BLD COUNT Routine 03/19/2020 4:22 Re sults for this W/AUTO DIFF AM CDT procedure are i n the results section. MRI BRAIN WO CONTRAST Routine 03/18/2020 10:27 Re sults for this PM CDT procedure are i n the results section. URINE DRUGS OF ABUSE Routine 03/18/2020 5:00 Res ults for this SCREEN PM CDT procedure are i n the results section. URINALYSIS SCREEN AND Routine 03/18/2020 5:00 Re sults for this MICROSCOPY, WITH PM CDT procedure a re in REFLEX TO CULTURE the result s section. URINE CULTURE Routine 03/18/2020 5:00 Results fo r this PM CDT procedure are i n the results section. ESTIMATED GFR Routine 03/18/2020 12:25 Results fo r this AM CDT procedure are i n the results section. MAGNESIUM LEVEL Routine 03/18/2020 12:25 Results for this AM CDT procedure are i n the results section. HEPATIC FUNCTION PANEL Routine 03/18/2020 12:25 R esults for this AM CDT procedure are i n the results section. BASIC METABOLIC PANEL Routine 03/18/2020 12:25 Re sults for this AM CDT procedure are i n the results section. PROTHROMBIN TIME WITH Routine 03/18/2020 12:10 Re sults for this INR AM CDT procedure are i n the results section. HC COMPLETE BLD COUNT Routine 03/18/2020 12:10 Re sults for this W/AUTO DIFF AM CDT procedure are i n the results section. CT HEAD WO CONTRAST Routine 03/17/2020 10:17 Resu lts for this PM CDT procedure are i n the results section. LACTIC ACID LEVEL Timed 03/17/2020 10:10 Result s for this PM CDT procedure are i n the results section. LACTIC ACID LEVEL Timed 03/17/2020 8:22 Result s for this PM CDT procedure are i n the results section. COVID-19 QUALITATIVE STAT 03/17/2020 6:10 Res ults for this PCR PM CDT procedure are i n the results section. AMMONIA LEVEL STAT 03/17/2020 4:40 Results fo r this PM CDT procedure are i n the results section. URINE DRUGS OF ABUSE STAT 03/17/2020 4:30 Res ults for this SCREEN PM CDT procedure are i n the results section. ALCOHOL LEVEL, BLOOD STAT 03/17/2020 4:30 Res ults for this PM CDT procedure are i n the results section. IONIZED CALCIUM STAT 03/17/2020 4:30 Results for this PM CDT procedure are i n the results section. ESTIMATED GFR STAT 03/17/2020 4:30 Results fo r this PM CDT procedure are i n the results section. PROTHROMBIN TIME WITH Routine 03/17/2020 4:30 Re sults for this INR, I-STAT PM CDT procedure are i n the results section. AMYLASE LEVEL STAT 03/17/2020 4:30 Results fo r this PM CDT procedure are i n the results section. LACTIC ACID, I-STAT STAT 03/17/2020 4:30 Resu lts for this PM CDT procedure are i n the results section. COMPREHENSIVE STAT 03/17/2020 4:30 Results fo r this METABOLIC PANEL PM CDT procedure ar e in the results section. HC COMPLETE BLD COUNT STAT 03/17/2020 4:30 Re sults for this W/AUTO DIFF PM CDT procedure are i n the results section. URINALYSIS STAT 03/17/2020 4:30 Results for this PM CDT procedure are i n the results section. TTE STRESS DOBUTAMINE Routine 03/14/2020 11:40 Liver transplan t Results for this (77009) AM CDT candidate procedure are i n the results section. CV STRESS TEST Routine 03/14/2020 11:40 Liver transplant Resul ts for this AM CDT candidate procedure are i n the results section. GENERAL SLEEP STUDY Routine 03/11/2020 9:01 Obstructive sleep AM CDT apnea (adult) (pediatric) ESTIMATED GFR Routine 02/21/2020 5:40 Results fo r this AM CDT procedure are i n the results section. PROTHROMBIN TIME WITH Routine 02/21/2020 5:40 Re sults for this INR AM CDT procedure are i n the results section. PHOSPHORUS LEVEL Routine 02/21/2020 5:40 Results for this AM CDT procedure are i n the results section. MAGNESIUM LEVEL Routine 02/21/2020 5:40 Results for this AM CDT procedure are i n the results section. HEPATIC FUNCTION PANEL Routine 02/21/2020 5:40 R esults for this AM CDT procedure are i n the results section. BASIC METABOLIC PANEL Routine 02/21/2020 5:40 Re sults for this AM CDT procedure are i n the results section. HC COMPLETE BLD COUNT Routine 02/21/2020 5:40 Re sults for this W/AUTO DIFF AM CDT procedure are i n the results section. PROTHROMBIN TIME WITH Routine 02/20/2020 5:47 Re sults for this INR AM CDT procedure are i n the results section. HC COMPLETE BLD COUNT Routine 02/20/2020 5:47 Re sults for this W/AUTO DIFF AM CDT procedure are i n the results section. ESTIMATED GFR Routine 02/20/2020 4:00 Results fo r this AM CDT procedure are i n the results section. PHOSPHORUS LEVEL Routine 02/20/2020 4:00 Results for this AM CDT procedure are i n the results section. MAGNESIUM LEVEL Routine 02/20/2020 4:00 Results for this AM CDT procedure are i n the results section. HEPATIC FUNCTION PANEL Routine 02/20/2020 4:00 R esults for this AM CDT procedure are i n the results section. BASIC METABOLIC PANEL Routine 02/20/2020 4:00 Re sults for this AM CDT procedure are i n the results section. XR ABDOMEN 1 VW Routine 02/19/2020 6:17 Results for this PORTABLE PM CDT procedure are i n the results section. AMMONIA LEVEL Routine 02/19/2020 1:00 Results fo r this PM CDT procedure are i n the results section. ESTIMATED GFR Routine 02/19/2020 6:08 Results fo r this AM CDT procedure are i n the results section. ALPHA FETOPROTEIN Routine 02/19/2020 6:08 Result s for this AM CDT procedure are i n the results section. ZINC LEVEL, SERUM Routine 02/19/2020 6:08 Result s for this AM CDT procedure are i n the results section. VITAMIN D 25 HYDROXY Routine 02/19/2020 6:08 Res ults for this LEVEL AM CDT procedure are i n the results section. T4 Routine 02/19/2020 6:08 Results for this AM CDT procedure are i n the results section. THYROID STIMULATING Routine 02/19/2020 6:08 Resu lts for this HORMONE AM CDT procedure are i n the results section. HEMOGLOBIN A1C Routine 02/19/2020 6:08 Results f or this AM CDT procedure are i n the results section. PROTHROMBIN TIME WITH Routine 02/19/2020 6:08 Re sults for this INR AM CDT procedure are i n the results section. PHOSPHORUS LEVEL Routine 02/19/2020 6:08 Results for this AM CDT procedure are i n the results section. MAGNESIUM LEVEL Routine 02/19/2020 6:08 Results for this AM CDT procedure are i n the results section. HEPATIC FUNCTION PANEL Routine 02/19/2020 6:08 R esults for this AM CDT procedure are i n the results section. BASIC METABOLIC PANEL Routine 02/19/2020 6:08 Re sults for this AM CDT procedure are i n the results section. HC COMPLETE BLD COUNT Routine 02/19/2020 6:08 Re sults for this W/AUTO DIFF AM CDT procedure are i n the results section. ALCOHOL LEVEL, BLOOD Routine 02/18/2020 5:21 Res ults for this PM CDT procedure are i n the results section. URINE DRUGS OF ABUSE STAT 02/18/2020 4:40 Res ults for this SCREEN PM CDT procedure are i n the results section. URINE DRUGS OF ABUSE STAT 02/18/2020 1:01 Res ults for this SCREEN PM CDT procedure are i n the results section. URINALYSIS STAT 02/18/2020 1:01 Results for this PM CDT procedure are i n the results section. ALCOHOL LEVEL, BLOOD STAT 02/18/2020 10:00 Res ults for this AM CDT procedure are i n the results section. ESTIMATED GFR STAT 02/18/2020 10:00 Results fo r this AM CDT procedure are i n the results section. AMMONIA LEVEL STAT 02/18/2020 10:00 Results fo r this AM CDT procedure are i n the results section. PROTHROMBIN TIME WITH STAT 02/18/2020 10:00 Re sults for this INR, I-STAT AM CDT procedure are i n the results section. PARTIAL THROMBOPLASTIN STAT 02/18/2020 10:00 R esults for this TIME (PTT) AM CDT procedure are i n the results section. COMPREHENSIVE STAT 02/18/2020 10:00 Results fo r this METABOLIC PANEL AM CDT procedure ar e in the results section. HC COMPLETE BLD COUNT STAT 02/18/2020 10:00 Re sults for this W/AUTO DIFF AM CDT procedure are i n the results section. TOTAL IRON BINDING Routine 01/20/2020 12:39 Resul ts for this CAPACITY PM CDT procedure are i n the results section. FERRITIN LEVEL Routine 01/20/2020 12:39 Results f or this PM CDT procedure are i n the results section. ESTIMATED GFR Routine 01/20/2020 6:00 Results fo r this AM CDT procedure are i n the results section. ALPHA FETOPROTEIN Routine 01/20/2020 6:00 Result s for this AM CDT procedure are i n the results section. PROTHROMBIN TIME WITH Routine 01/20/2020 6:00 Re sults for this INR AM CDT procedure are i n the results section. PHOSPHORUS LEVEL Routine 01/20/2020 6:00 Results for this AM CDT procedure are i n the results section. MAGNESIUM LEVEL Routine 01/20/2020 6:00 Results for this AM CDT procedure are i n the results section. HEPATIC FUNCTION PANEL Routine 01/20/2020 6:00 R esults for this AM CDT procedure are i n the results section. BASIC METABOLIC PANEL Routine 01/20/2020 6:00 Re sults for this AM CDT procedure are i n the results section. HC COMPLETE BLD COUNT Routine 01/20/2020 6:00 Re sults for this W/AUTO DIFF AM CDT procedure are i n the results section. URINE DRUGS OF ABUSE Routine 01/19/2020 7:34 Res ults for this SCREEN PM CDT procedure are i n the results section. OPIATES, S/P, QUANT Routine 01/19/2020 11:14 Resu lts for this AM CDT procedure are i n the results section. MISCELLANEOUS REFERRAL Routine 01/19/2020 11:14 R esults for this TEST AM CDT procedure are i n the results section. DRUG KIM 9, SER/CAROLYN, Routine 01/19/2020 11:14 Res ults for this SCRN W/RFLX TO CONF AM CDT procedur e are in the results section. ESTIMATED GFR Routine 01/19/2020 3:00 Results fo r this AM CDT procedure are i n the results section. HEMOGLOBIN A1C Routine 01/19/2020 3:00 Results f or this AM CDT procedure are i n the results section. PROTHROMBIN TIME WITH Routine 01/19/2020 3:00 Re sults for this INR AM CDT procedure are i n the results section. PHOSPHORUS LEVEL Routine 01/19/2020 3:00 Results for this AM CDT procedure are i n the results section. MAGNESIUM LEVEL Routine 01/19/2020 3:00 Results for this AM CDT procedure are i n the results section. HEPATIC FUNCTION PANEL Routine 01/19/2020 3:00 R esults for this AM CDT procedure are i n the results section. BASIC METABOLIC PANEL Routine 01/19/2020 3:00 Re sults for this AM CDT procedure are i n the results section. HC COMPLETE BLD COUNT Routine 01/19/2020 3:00 Re sults for this W/AUTO DIFF AM CDT procedure are i n the results section. BLOOD CULTURE, AEROBIC Routine 01/19/2020 3:00 R esults for this & ANAEROBIC AM CDT procedure are i n the results section. BLOOD CULTURE, AEROBIC Routine 01/19/2020 3:00 R esults for this & ANAEROBIC AM CDT procedure are i n the results section. URINALYSIS, AUTOMATED Routine 01/19/2020 2:30 Re sults for this WITH MICROSCOPY AM CDT procedure ar e in the results section. PREALBUMIN LEVEL Routine 01/19/2020 2:00 Results for this AM CDT procedure are i n the results section. XR FOOT 3+ VW RIGHT STAT 01/18/2020 9:39 Resu lts for this PM CDT procedure are i n the results section. ESTIMATED GFR STAT 01/18/2020 8:56 Results fo r this PM CDT procedure are i n the results section. PHOSPHORUS LEVEL STAT 01/18/2020 8:56 Results for this PM CDT procedure are i n the results section. MAGNESIUM LEVEL STAT 01/18/2020 8:56 Results for this PM CDT procedure are i n the results section. AMYLASE LEVEL STAT 01/18/2020 8:56 Results fo r this PM CDT procedure are i n the results section. COMPREHENSIVE STAT 01/18/2020 8:56 Results fo r this METABOLIC PANEL PM CDT procedure ar e in the results section. HC COMPLETE BLD COUNT STAT 01/18/2020 8:56 Re sults for this W/AUTO DIFF PM CDT procedure are i n the results section. URINALYSIS STAT 01/18/2020 8:25 Results for this PM CDT procedure are i n the results section. ESTIMATED GFR Routine 01/11/2020 5:40 Results fo r this AM CDT procedure are i n the results section. PROTHROMBIN TIME WITH Routine 01/11/2020 5:40 Re sults for this INR AM CDT procedure are i n the results section. PHOSPHORUS LEVEL Routine 01/11/2020 5:40 Results for this AM CDT procedure are i n the results section. HEPATIC FUNCTION PANEL Routine 01/11/2020 5:40 R esults for this AM CDT procedure are i n the results section. MAGNESIUM LEVEL Routine 01/11/2020 5:40 Results for this AM CDT procedure are i n the results section. HC COMPLETE BLD COUNT Routine 01/11/2020 5:40 Re sults for this W/AUTO DIFF AM CDT procedure are i n the results section. BASIC METABOLIC PANEL Routine 01/11/2020 5:40 Re sults for this AM CDT procedure are i n the results section. XR FOOT 2 VW RIGHT Routine 01/10/2020 6:22 Resul ts for this PM CDT procedure are i n the results section. MRI BRAIN WO CONTRAST Routine 01/10/2020 5:52 Re sults for this PM CDT procedure are i n the results section. ESTIMATED GFR Routine 01/10/2020 5:14 Results fo r this AM CDT procedure are i n the results section. PROTHROMBIN TIME WITH Routine 01/10/2020 5:14 Re sults for this INR AM CDT procedure are i n the results section. PHOSPHORUS LEVEL Routine 01/10/2020 5:14 Results for this AM CDT procedure are i n the results section. MAGNESIUM LEVEL Routine 01/10/2020 5:14 Results for this AM CDT procedure are i n the results section. HEPATIC FUNCTION PANEL Routine 01/10/2020 5:14 R esults for this AM CDT procedure are i n the results section. BASIC METABOLIC PANEL Routine 01/10/2020 5:14 Re sults for this AM CDT procedure are i n the results section. HC COMPLETE BLD COUNT Routine 01/10/2020 5:14 Re sults for this W/AUTO DIFF AM CDT procedure are i n the results section. CREATININE LEVEL, Routine 01/09/2020 5:30 Result s for this URINE, RANDOM AM CDT procedure are in the results section. SODIUM LEVEL, URINE, Routine 01/09/2020 5:30 Res ults for this RANDOM AM CDT procedure are i n the results section. URINALYSIS SCREEN AND STAT 01/09/2020 5:30 Re sults for this MICROSCOPY, WITH AM CDT procedure a re in REFLEX TO CULTURE the result s section. URINE CULTURE STAT 01/09/2020 5:30 Results fo r this AM CDT procedure are i n the results section. ESTIMATED GFR Routine 01/09/2020 5:08 Results fo r this AM CDT procedure are i n the results section. PROTHROMBIN TIME WITH Routine 01/09/2020 5:08 Re sults for this INR AM CDT procedure are i n the results section. PHOSPHORUS LEVEL Routine 01/09/2020 5:08 Results for this AM CDT procedure are i n the results section. MAGNESIUM LEVEL Routine 01/09/2020 5:08 Results for this AM CDT procedure are i n the results section. HEPATIC FUNCTION PANEL Routine 01/09/2020 5:08 R esults for this AM CDT procedure are i n the results section. BASIC METABOLIC PANEL Routine 01/09/2020 5:08 Re sults for this AM CDT procedure are i n the results section. HC COMPLETE BLD COUNT Routine 01/09/2020 5:08 Re sults for this W/AUTO DIFF AM CDT procedure are i n the results section. XR ABDOMEN 1 VW Routine 01/08/2020 6:04 Results for this PORTABLE PM CDT procedure are i n the results section. ESTIMATED GFR Routine 01/08/2020 6:11 Results fo r this AM CDT procedure are i n the results section. HEMOGLOBIN A1C Routine 01/08/2020 6:11 Results f or this AM CDT procedure are i n the results section. PROTHROMBIN TIME WITH Routine 01/08/2020 6:11 Re sults for this INR AM CDT procedure are i n the results section. PHOSPHORUS LEVEL Routine 01/08/2020 6:11 Results for this AM CDT procedure are i n the results section. MAGNESIUM LEVEL Routine 01/08/2020 6:11 Results for this AM CDT procedure are i n the results section. HEPATIC FUNCTION PANEL Routine 01/08/2020 6:11 R esults for this AM CDT procedure are i n the results section. BASIC METABOLIC PANEL Routine 01/08/2020 6:11 Re sults for this AM CDT procedure are i n the results section. HC COMPLETE BLD COUNT Routine 01/08/2020 6:11 Re sults for this W/AUTO DIFF AM CDT procedure are i n the results section. BLOOD CULTURE, AEROBIC Routine 01/08/2020 6:10 R esults for this & ANAEROBIC AM CDT procedure are i n the results section. URINALYSIS, AUTOMATED Routine 01/07/2020 11:03 Re sults for this WITH MICROSCOPY PM CDT procedure ar e in the results section. BLOOD CULTURE, AEROBIC Routine 01/07/2020 11:03 R esults for this & ANAEROBIC PM CDT procedure are i n the results section. AMMONIA LEVEL STAT 01/07/2020 3:30 Results fo r this PM CDT procedure are i n the results section. CT HEAD WO CONTRAST STAT 01/07/2020 3:23 Resu lts for this PM CDT procedure are i n the results section. URINALYSIS STAT 01/07/2020 3:00 Results for this PM CDT procedure are i n the results section. ESTIMATED GFR STAT 01/07/2020 2:45 Results fo r this PM CDT procedure are i n the results section. PHOSPHORUS LEVEL STAT 01/07/2020 2:45 Results for this PM CDT procedure are i n the results section. MAGNESIUM LEVEL STAT 01/07/2020 2:45 Results for this PM CDT procedure are i n the results section. TROPONIN, I-STAT STAT 01/07/2020 2:45 Results for this PM CDT procedure are i n the results section. CREATINE KINASE, TOTAL STAT 01/07/2020 2:45 R esults for this (CPK) PM CDT procedure are i n the results section. AMYLASE LEVEL STAT 01/07/2020 2:45 Results fo r this PM CDT procedure are i n the results section. LACTIC ACID, I-STAT STAT 01/07/2020 2:45 Resu lts for this PM CDT procedure are i n the results section. COMPREHENSIVE STAT 01/07/2020 2:45 Results fo r this METABOLIC PANEL PM CDT procedure ar e in the results section. HC COMPLETE BLD COUNT STAT 01/07/2020 2:45 Re sults for this W/AUTO DIFF PM CDT procedure are i n the results section. CT CARDIAC CALCIUM Routine 12/25/2019 1:31 Resul ts for this SCORE PM CDT procedure are i n the results section. ESTIMATED GFR Routine 12/25/2019 4:40 Results fo r this AM CDT procedure are i n the results section. PROTHROMBIN TIME WITH Routine 12/25/2019 4:40 Re sults for this INR AM CDT procedure are i n the results section. PHOSPHORUS LEVEL Routine 12/25/2019 4:40 Results for this AM CDT procedure are i n the results section. MAGNESIUM LEVEL Routine 12/25/2019 4:40 Results for this AM CDT procedure are i n the results section. HEPATIC FUNCTION PANEL Routine 12/25/2019 4:40 R esults for this AM CDT procedure are i n the results section. BASIC METABOLIC PANEL Routine 12/25/2019 4:40 Re sults for this AM CDT procedure are i n the results section. HC COMPLETE BLD COUNT Routine 12/25/2019 4:40 Re sults for this W/AUTO DIFF AM CDT procedure are i n the results section. VENIPUNC NEED PHYS Routine 12/24/2019 2:11 Resul ts for this SKILL,DX OR RX PM CDT procedure are in the results section. URINALYSIS, AUTOMATED Routine 12/24/2019 8:40 Re sults for this WITH MICROSCOPY AM CDT procedure ar e in the results section. HEMOGLOBIN A1C Routine 12/24/2019 5:20 Results f or this AM CDT procedure are i n the results section. PROTHROMBIN TIME WITH Routine 12/24/2019 5:20 Re sults for this INR AM CDT procedure are i n the results section. CBC WITH PLATELET AND Routine 12/24/2019 5:20 Re sults for this DIFFERENTIAL AM CDT procedure are i n the results section. ESTIMATED GFR Routine 12/24/2019 4:00 Results fo r this AM CDT procedure are i n the results section. PHOSPHORUS LEVEL Routine 12/24/2019 4:00 Results for this AM CDT procedure are i n the results section. MAGNESIUM LEVEL Routine 12/24/2019 4:00 Results for this AM CDT procedure are i n the results section. HEPATIC FUNCTION PANEL Routine 12/24/2019 4:00 R esults for this AM CDT procedure are i n the results section. BASIC METABOLIC PANEL Routine 12/24/2019 4:00 Re sults for this AM CDT procedure are i n the results section. PARTIAL THROMBOPLASTIN Routine 12/23/2019 5:20 R esults for this TIME (PTT) PM CDT procedure are i n the results section. PROTHROMBIN TIME WITH Routine 12/23/2019 5:20 Re sults for this INR PM CDT procedure are i n the results section. HC COMPLETE BLD COUNT Routine 12/23/2019 5:20 Re sults for this W/AUTO DIFF PM CDT procedure are i n the results section. BLOOD CULTURE, AEROBIC Routine 12/23/2019 5:20 R esults for this & ANAEROBIC PM CDT procedure are i n the results section. BLOOD CULTURE, AEROBIC Routine 12/23/2019 5:20 R esults for this & ANAEROBIC PM CDT procedure are i n the results section. ESTIMATED GFR Routine 12/23/2019 4:36 Results fo r this PM CDT procedure are i n the results section. PREALBUMIN LEVEL Routine 12/23/2019 4:36 Results for this PM CDT procedure are i n the results section. PHOSPHORUS LEVEL Routine 12/23/2019 4:36 Results for this PM CDT procedure are i n the results section. MAGNESIUM LEVEL Routine 12/23/2019 4:36 Results for this PM CDT procedure are i n the results section. LIPID PANEL Routine 12/23/2019 4:36 Results for this PM CDT procedure are i n the results section. LIPASE LEVEL Routine 12/23/2019 4:36 Results for this PM CDT procedure are i n the results section. HEPATIC FUNCTION PANEL Routine 12/23/2019 4:36 R esults for this PM CDT procedure are i n the results section. BASIC METABOLIC PANEL Routine 12/23/2019 4:36 Re sults for this PM CDT procedure are i n the results section. AMYLASE LEVEL Routine 12/23/2019 4:36 Results fo r this PM CDT procedure are i n the results section. ESTIMATED GFR Routine 12/23/2019 12:28 Results fo r this PM CDT procedure are i n the results section. POC CREATININE Routine 12/23/2019 12:28 Results f or this PM CDT procedure are i n the results section. MRI ABDOMEN W WO Routine 10/15/2019 7:45 Results for this CONTRAST AM [employer] procedure are i n the results section. PROTHROMBIN TIME WITH Routine 10/15/2019 5:00 Re sults for this INR AM [employer] procedure are i n the results section. HC COMPLETE BLD COUNT Routine 10/15/2019 5:00 Re sults for this W/AUTO DIFF AM [employer] procedure are i n the results section. ESTIMATED GFR Routine 10/15/2019 4:00 Results fo r this AM [employer] procedure are i n the results section. PHOSPHORUS LEVEL Routine 10/15/2019 4:00 Results for this AM [employer] procedure are i n the results section. MAGNESIUM LEVEL Routine 10/15/2019 4:00 Results for this AM [employer] procedure are i n the results section. HEPATIC FUNCTION PANEL Routine 10/15/2019 4:00 R esults for this AM [employer] procedure are i n the results section. BASIC METABOLIC PANEL Routine 10/15/2019 4:00 Re sults for this AM [employer] procedure are i n the results section. TTE COMPLETE, WO Routine 10/14/2019 3:31 Results for this CONTRAST, W DOPPLER PM [employer] [place] in ([id number]) the results section. HEPATIC FUNCTION PANEL Routine 10/14/2019 9:27 R esults for this AM [employer] procedure are i n the results section. POTASSIUM LEVEL Routine 10/14/2019 9:27 Results for this AM [employer] procedure are i n the results section. SMEAR REVIEW Routine 10/14/2019 4:45 Results for this AM [employer] procedure are i n the results section. ESTIMATED GFR Routine 10/14/2019 4:45 Results fo r this AM [employer] procedure are i n the results section. HEMOGLOBIN A1C Routine 10/14/2019 4:45 Results f or this AM [employer] procedure are i n the results section. PROTHROMBIN TIME WITH Routine 10/14/2019 4:45 Re sults for this INR AM [employer] procedure are i n the results section. PHOSPHORUS LEVEL Routine 10/14/2019 4:45 Results for this AM [employer] procedure are i n the results section. MAGNESIUM LEVEL Routine 10/14/2019 4:45 Results for this AM [employer] procedure are i n the results section. HEPATIC FUNCTION PANEL Routine 10/14/2019 4:45 R esults for this AM [employer] procedure are i n the results section. BASIC METABOLIC PANEL Routine 10/14/2019 4:45 Re sults for this AM [employer] procedure are i n the results section. HC COMPLETE BLD COUNT Routine 10/14/2019 4:45 Re sults for this W/AUTO DIFF AM [employer] procedure are i n the results section. PROTHROMBIN TIME WITH Routine 10/13/2019 9:32 Re sults for this INR AM [employer] procedure are i n the results section. HC COMPLETE BLD COUNT Routine 10/13/2019 9:31 Re sults for this W/AUTO DIFF AM [employer] procedure are i n the results section. ESTIMATED GFR Routine 10/13/2019 8:21 Results fo r this AM [employer] procedure are i n the results section. PHOSPHORUS LEVEL Routine 10/13/2019 8:21 Results for this AM [employer] procedure are i n the results section. MAGNESIUM LEVEL Routine 10/13/2019 8:21 Results for this AM [employer] procedure are i n the results section. HEPATIC FUNCTION PANEL Routine 10/13/2019 8:21 R esults for this AM [employer] procedure are i n the results section. BASIC METABOLIC PANEL Routine 10/13/2019 8:21 Re sults for this AM [employer] procedure are i n the results section. PREALBUMIN LEVEL Routine 10/13/2019 8:20 Results for this AM [employer] procedure are i n the results section. STREP SCREEN CULTURE Routine 10/13/2019 2:40 Res ults for this AM [employer] procedure are i n the results section. GROUP A STREP, RAPID Routine 10/13/2019 2:40 Res ults for this ANTIGEN AM [employer] procedure are i n the results section. URINALYSIS STAT 10/13/2019 2:01 Results for this AM [employer] procedure are i n the results section. CT HEAD WO CONTRAST STAT 10/13/2019 1:40 Resu lts for this AM [employer] procedure are i n the results section. BLOOD CULTURE, AEROBIC STAT 10/13/2019 12:10 R esults for this & ANAEROBIC AM [employer] procedure are i n the results section. BLOOD CULTURE, AEROBIC STAT 10/13/2019 12:00 R esults for this & ANAEROBIC AM [employer] procedure are i n the results section. XR FOOT 3+ VW LEFT STAT 10/12/2019 11:23 Resul ts for this PM [employer] procedure are i n the results section. XR FOOT 3+ VW RIGHT STAT 10/12/2019 11:23 Resu lts for this PM [employer] procedure are i n the results section. XR KNEE 1 OR 2 VW STAT 10/12/2019 11:22 Result s for this RIGHT PM [employer] procedure are i n the results section. HC COMPLETE BLD COUNT STAT 10/12/2019 11:00 Re sults for this W/AUTO DIFF PM [employer] procedure are i n the results section. ESTIMATED GFR STAT 10/12/2019 10:50 Results fo r this PM [employer] procedure are i n the results section. HEPATIC FUNCTION PANEL STAT 10/12/2019 10:50 PM [employer] COMPREHENSIVE STAT 10/12/2019 10:50 Results fo r this METABOLIC PANEL PM [employer] procedure ar e in the results section. AMMONIA LEVEL STAT 10/12/2019 10:50 Results fo r this PM [employer] procedure are i n the results section. PROTHROMBIN TIME WITH Routine 10/01/2019 3:25 Re sults for this INR PM [employer] procedure are i n the results section. CBC WITH PLATELET AND Routine 10/01/2019 3:25 Re sults for this DIFFERENTIAL PM [employer] procedure are i n the results section. COMPREHENSIVE Routine 10/01/2019 3:25 Results fo r this METABOLIC PANEL PM [employer] procedure ar e in the results section. ESTIMATED GFR Routine 09/03/2019 8:00 Results fo r this AM [employer] procedure are i n the results section. PROTHROMBIN TIME WITH Routine 09/03/2019 8:00 Re sults for this INR AM [employer] procedure are i n the results section. PHOSPHORUS LEVEL Routine 09/03/2019 8:00 Results for this AM [employer] procedure are i n the results section. MAGNESIUM LEVEL Routine 09/03/2019 8:00 Results for this AM [employer] procedure are i n the results section. HEPATIC FUNCTION PANEL Routine 09/03/2019 8:00 R esults for this AM [employer] procedure are i n the results section. BASIC METABOLIC PANEL Routine 09/03/2019 8:00 Re sults for this AM [employer] procedure are i n the results section. HC COMPLETE BLD COUNT Routine 09/03/2019 8:00 Re sults for this W/AUTO DIFF AM [employer] procedure are i n the results section. URINE DRUGS OF ABUSE Routine 09/02/2019 8:25 Res ults for this SCREEN PM [employer] procedure are i n the results section. US HEPATIC Routine 09/02/2019 6:05 Results for this PM [employer] procedure are i n the results section. ESTIMATED GFR Routine 09/02/2019 5:53 Results fo r this AM [employer] procedure are i n the results section. ALPHA FETOPROTEIN Routine 09/02/2019 5:53 Result s for this AM [employer] procedure are i n the results section. ZINC LEVEL, SERUM Routine 09/02/2019 5:53 Result s for this AM [employer] procedure are i n the results section. VITAMIN D 25 HYDROXY Routine 09/02/2019 5:53 Res ults for this LEVEL AM [employer] procedure are i n the results section. T4 Routine 09/02/2019 5:53 Results for this AM [employer] procedure are i n the results section. THYROID STIMULATING Routine 09/02/2019 5:53 Resu lts for this HORMONE AM [employer] procedure are i n the results section. HEMOGLOBIN A1C Routine 09/02/2019 5:53 Results f or this AM [employer] procedure are i n the results section. PROTHROMBIN TIME WITH Routine 09/02/2019 5:53 Re sults for this INR AM [employer] procedure are i n the results section. PHOSPHORUS LEVEL Routine 09/02/2019 5:53 Results for this AM [employer] procedure are i n the results section. MAGNESIUM LEVEL Routine 09/02/2019 5:53 Results for this AM [employer] procedure are i n the results section. HEPATIC FUNCTION PANEL Routine 09/02/2019 5:53 R esults for this AM [employer] procedure are i n the results section. BASIC METABOLIC PANEL Routine 09/02/2019 5:53 Re sults for this AM [employer] procedure are i n the results section. HC COMPLETE BLD COUNT Routine 09/02/2019 5:53 Re sults for this W/AUTO DIFF AM [employer] procedure are i n the results section. AMMONIA LEVEL STAT 09/02/2019 5:53 Results fo r this AM [employer] procedure are i n the results section. AMMONIA LEVEL STAT 09/01/2019 12:52 Results fo r this PM [employer] procedure are i n the results section. CT CERVICAL SPINE WO STAT 09/01/2019 12:11 Res ults for this CONTRAST PM [employer] procedure are i n the results section. XR SHOULDER 2+ VW LEFT STAT 09/01/2019 12:11 R esults for this PM [employer] procedure are i n the results section. XR KNEE 1 OR 2 VW STAT 09/01/2019 12:10 Result s for this RIGHT PM [employer] procedure are i n the results section. CT HEAD WO CONTRAST STAT 09/01/2019 12:10 Resu lts for this PM [employer] procedure are i n the results section. URINALYSIS STAT 09/01/2019 11:45 Results for this AM [employer] procedure are i n the results section. ESTIMATED GFR STAT 09/01/2019 11:33 Results fo r this AM [employer] procedure are i n the results section. PROTHROMBIN TIME WITH Routine 09/01/2019 11:33 Re sults for this INR, I-STAT AM [employer] procedure are i n the results section. HC COMPLETE BLD COUNT STAT 09/01/2019 11:33 Re sults for this W/AUTO DIFF AM [employer] procedure are i n the results section. COMPREHENSIVE STAT 09/01/2019 11:33 Results fo r this METABOLIC PANEL AM [employer] procedure ar e in the results section. C-REACTIVE PROTEIN Routine 06/18/2019 4:50 Resul ts for this AM [employer] procedure are i n the results section. ESTIMATED GFR Routine 06/18/2019 4:50 Results fo r this AM [employer] procedure are i n the results section. AMMONIA LEVEL Routine 06/18/2019 4:50 Results fo r this AM [employer] procedure are i n the results section. T4, FREE Routine 06/18/2019 4:50 Results for this AM [employer] procedure are i n the results section. ZINC LEVEL, SERUM Routine 06/18/2019 4:50 Result s for this AM [employer] procedure are i n the results section. THYROID STIMULATING Routine 06/18/2019 4:50 Resu lts for this HORMONE AM [employer] procedure are i n the results section. ALPHA FETOPROTEIN Routine 06/18/2019 4:50 Result s for this AM [employer] procedure are i n the results section. PROTHROMBIN TIME WITH Routine 06/18/2019 4:50 Re sults for this INR AM [employer] procedure are i n the results section. PHOSPHORUS LEVEL Routine 06/18/2019 4:50 Results for this AM [employer] procedure are i n the results section. MAGNESIUM LEVEL Routine 06/18/2019 4:50 Results for this AM [employer] procedure are i n the results section. HEPATIC FUNCTION PANEL Routine 06/18/2019 4:50 R esults for this AM [employer] procedure are i n the results section. BASIC METABOLIC PANEL Routine 06/18/2019 4:50 Re sults for this AM [employer] procedure are i n the results section. HC COMPLETE BLD COUNT Routine 06/18/2019 4:50 Re sults for this W/AUTO DIFF AM [employer] procedure are i n the results section. GRAM STAIN Routine 06/17/2019 8:44 Results for this PM [employer] procedure are i n the results section. URINE CULTURE Routine 06/17/2019 8:44 Results fo r this PM [employer] procedure are i n the results section. PROTHROMBIN TIME WITH Routine 06/17/2019 6:25 Re sults for this INR AM [employer] procedure are i n the results section. HC COMPLETE BLD COUNT Routine 06/17/2019 6:25 Re sults for this W/AUTO DIFF AM [employer] procedure are i n the results section. ESTIMATED GFR Routine 06/17/2019 4:00 Results fo r this AM [employer] procedure are i n the results section. PHOSPHORUS LEVEL Routine 06/17/2019 4:00 Results for this AM [employer] procedure are i n the results section. MAGNESIUM LEVEL Routine 06/17/2019 4:00 Results for this AM [employer] procedure are i n the results section. HEPATIC FUNCTION PANEL Routine 06/17/2019 4:00 R esults for this AM [employer] procedure are i n the results section. BASIC METABOLIC PANEL Routine 06/17/2019 4:00 Re sults for this AM [employer] procedure are i n the results section. LACTIC ACID, I-STAT Timed 06/16/2019 12:22 Resu lts for this PM [employer] procedure are i n the results section. BLOOD CULTURE, AEROBIC STAT 06/16/2019 11:13 R esults for this & ANAEROBIC AM [employer] procedure are i n the results section. MANUAL DIFFERENTIAL STAT 06/16/2019 9:45 Resu lts for this AM [employer] procedure are i n the results section. ESTIMATED GFR STAT 06/16/2019 9:45 Results fo r this AM [employer] procedure are i n the results section. AMMONIA LEVEL STAT 06/16/2019 9:45 Results fo r this AM [employer] procedure are i n the results section. LACTIC ACID, I-STAT STAT 06/16/2019 9:45 Resu lts for this AM [employer] procedure are i n the results section. COMPREHENSIVE STAT 06/16/2019 9:45 Results fo r this METABOLIC PANEL AM [employer] procedure ar e in the results section. CBC WITH PLATELET AND STAT 06/16/2019 9:45 DIFFERENTIAL AM [employer] TTE COMPLETE, WO Routine 05/08/2019 8:00 Results for this CONTRAST, W DOPPLER AM CDT procedur e are in ([id number]) the results section. ESTIMATED GFR Routine 05/08/2019 4:00 Results fo r this AM CDT procedure are i n the results section. COMPREHENSIVE Routine 05/08/2019 4:00 Results fo r this METABOLIC PANEL AM CDT procedure ar e in the results section. LIPID PANEL Routine 05/08/2019 4:00 Results for this AM CDT procedure are i n the results section. HC COMPLETE BLD COUNT Routine 05/08/2019 3:30 Re sults for this W/AUTO DIFF AM CDT procedure are i n the results section. CT ABDOMEN PELVIS WO STAT 05/07/2019 5:25 Res ults for this CONTRAST PM CDT procedure are i n the results section. CT HEAD WO CONTRAST STAT 05/07/2019 5:24 Resu lts for this PM CDT procedure are i n the results section. URINE DRUGS OF ABUSE STAT 05/07/2019 4:19 Res ults for this SCREEN PM CDT procedure are i n the results section. URINALYSIS STAT 05/07/2019 4:19 Results for this PM CDT procedure are i n the results section. GRAM STAIN Routine 05/07/2019 4:19 Results for this PM CDT procedure are i n the results section. URINE CULTURE Routine 05/07/2019 4:19 Results fo r this PM CDT procedure are i n the results section. ESTIMATED GFR STAT 05/07/2019 4:10 Results fo r this PM CDT procedure are i n the results section. ALCOHOL LEVEL, BLOOD STAT 05/07/2019 4:10 Res ults for this PM CDT procedure are i n the results section. AMMONIA LEVEL STAT 05/07/2019 4:10 Results fo r this PM CDT procedure are i n the results section. B NATRIURETIC PEP, STAT 05/07/2019 4:10 Resul ts for this I-STAT PM CDT procedure are i n the results section. TROPONIN, I-STAT STAT 05/07/2019 4:10 Results for this PM CDT procedure are i n the results section. PROTHROMBIN TIME WITH STAT 05/07/2019 4:10 Re sults for this INR, I-STAT PM CDT procedure are i n the results section. COMPREHENSIVE STAT 05/07/2019 4:10 Results fo r this METABOLIC PANEL PM CDT procedure ar e in the results section. HC COMPLETE BLD COUNT STAT 05/07/2019 4:10 Re sults for this W/AUTO DIFF PM CDT procedure are i n the results section. ECG 12-LEAD STAT 05/07/2019 3:54 Results for this PM CDT procedure are i n the results section. MRI ABDOMEN W WO Routine 04/23/2019 5:10 [facility] (nonalcoholic R esults for this CONTRAST PM CDT steatohepatitis) procedure are in S/P TIPS the results (transjugular section. intrahepatic portosystemic sh unt) Awaiting liver transplant Need for prophylactic vaccination with Streptococcus pneumoniae (Pneumococcus) and Influenza vaccin es Cancer screening TTE COMPLETE, WO Routine 04/23/2019 3:34 [facility] (nonalcoholic R esults for this CONTRAST, W DOPPLER PM CDT steatohepati tis) procedure are in ([id number]) S/P TIPS the results (transjugular section. intrahepatic portosystemic sh unt) Awaiting liver transplant Cancer screening CAM (acute kidney injury) (HCC) Alcoholic cirrhosis of liver with ascites (HCC) At high risk for excess fluid vol ume Allergy history, radiographic dye ESTIMATED GFR Routine 04/23/2019 1:01 Results fo r this PM CDT procedure are i n the results section. PHOSPHORUS LEVEL Routine 04/23/2019 1:01 [facility] (nonalcoholic R esults for this PM CDT steatohepatitis) procedure are in S/P TIPS the results (transjugular section. intrahepatic portosystemic sh unt) Awaiting liver transplant Cancer screening CAM (acute kidney injury) (HCC) Alcoholic cirrhosis of liver with ascites (HCC) At high risk for excess fluid vol ume Allergy history, radiographic dye MAGNESIUM LEVEL Routine 04/23/2019 1:01 MCFARLANE (nonalcoholic Re sults for this PM CDT steatohepatitis) procedure are in S/P TIPS the results (transjugular section. intrahepatic portosystemic sh unt) Awaiting liver transplant Cancer screening CAM (acute kidney injury) (HCC) Alcoholic cirrhosis of liver with ascites (HCC) At high risk for excess fluid vol ume Allergy history, radiographic dye HC COMPLETE BLD COUNT Routine 04/23/2019 1:01 MCFARLANE (nonalcoho lic Results for this W/AUTO DIFF PM CDT steatohepatitis) procedure are in S/P TIPS the results (transjugular section. intrahepatic portosystemic sh unt) Awaiting liver transplant Cancer screening CAM (acute kidney injury) (HCC) Alcoholic cirrhosis of liver with ascites (HCC) At high risk for excess fluid vol ume Allergy history, radiographic dye PARTIAL THROMBOPLASTIN Routine 04/23/2019 1:01 MCFARLANE (nonalcoh olic Results for this TIME (PTT) PM CDT steatohepatitis) procedure are in S/P TIPS the results (transjugular section. intrahepatic portosystemic sh unt) Awaiting liver transplant Cancer screening CAM (acute kidney injury) (HCC) Alcoholic cirrhosis of liver with ascites (HCC) At high risk for excess fluid vol ume Allergy history, radiographic dye PROTHROMBIN TIME WITH Routine 04/23/2019 1:01 MCFARLANE (nonalcoho lic Results for this INR PM CDT steatohepatitis) procedure are in S/P TIPS the results (transjugular section. intrahepatic portosystemic sh unt) Awaiting liver transplant Cancer screening CAM (acute kidney injury) (HCC) Alcoholic cirrhosis of liver with ascites (HCC) At high risk for excess fluid vol ume Allergy history, radiographic dye HEPATIC FUNCTION PANEL Routine 04/23/2019 1:01 MCFARLANE (nonalcoh olic Results for this PM CDT steatohepatitis) procedure are in S/P TIPS the results (transjugular section. intrahepatic portosystemic sh unt) Awaiting liver transplant Cancer screening CAM (acute kidney injury) (HCC) Alcoholic cirrhosis of liver with ascites (HCC) At high risk for excess fluid vol ume Allergy history, radiographic dye BASIC METABOLIC PANEL Routine 04/23/2019 1:01 MCFARLANE (nonalcoho lic Results for this PM CDT steatohepatitis) procedure are in S/P TIPS the results (transjugular section. intrahepatic portosystemic sh unt) Awaiting liver transplant Cancer screening CAM (acute kidney injury) (HCC) Alcoholic cirrhosis of liver with ascites (HCC) At high risk for excess fluid vol ume Allergy history, radiographic dye ESTIMATED GFR Routine 04/14/2019 6:05 Results fo r this AM CDT procedure are i n the results section. PROTHROMBIN TIME WITH Routine 04/14/2019 6:05 Re sults for this INR AM CDT procedure are i n the results section. PHOSPHORUS LEVEL Routine 04/14/2019 6:05 Results for this AM CDT procedure are i n the results section. MAGNESIUM LEVEL Routine 04/14/2019 6:05 Results for this AM CDT procedure are i n the results section. HEPATIC FUNCTION PANEL Routine 04/14/2019 6:05 R esults for this AM CDT procedure are i n the results section. BASIC METABOLIC PANEL Routine 04/14/2019 6:05 Re sults for this AM CDT procedure are i n the results section. HC COMPLETE BLD COUNT Routine 04/14/2019 6:05 Re sults for this W/AUTO DIFF AM CDT procedure are i n the results section. ESTIMATED GFR Routine 04/13/2019 3:58 Results fo r this AM CDT procedure are i n the results section. PROTHROMBIN TIME WITH Routine 04/13/2019 3:58 Re sults for this INR AM CDT procedure are i n the results section. PHOSPHORUS LEVEL Routine 04/13/2019 3:58 Results for this AM CDT procedure are i n the results section. MAGNESIUM LEVEL Routine 04/13/2019 3:58 Results for this AM CDT procedure are i n the results section. HEPATIC FUNCTION PANEL Routine 04/13/2019 3:58 R esults for this AM CDT procedure are i n the results section. BASIC METABOLIC PANEL Routine 04/13/2019 3:58 Re sults for this AM CDT procedure are i n the results section. HC COMPLETE BLD COUNT Routine 04/13/2019 3:58 Re sults for this W/AUTO DIFF AM CDT procedure are i n the results section. XR ABDOMEN 1 VW Routine 04/12/2019 12:13 Results for this PORTABLE PM CDT procedure are i n the results section. PREALBUMIN LEVEL Routine 04/12/2019 5:49 Results for this AM CDT procedure are i n the results section. AMMONIA LEVEL Routine 04/12/2019 5:49 Results fo r this AM CDT procedure are i n the results section. ESTIMATED GFR Routine 04/12/2019 5:49 Results fo r this AM CDT procedure are i n the results section. HEMOGLOBIN A1C Routine 04/12/2019 5:49 Results f or this AM CDT procedure are i n the results section. PROTHROMBIN TIME WITH Routine 04/12/2019 5:49 Re sults for this INR AM CDT procedure are i n the results section. PHOSPHORUS LEVEL Routine 04/12/2019 5:49 Results for this AM CDT procedure are i n the results section. MAGNESIUM LEVEL Routine 04/12/2019 5:49 Results for this AM CDT procedure are i n the results section. HEPATIC FUNCTION PANEL Routine 04/12/2019 5:49 R esults for this AM CDT procedure are i n the results section. BASIC METABOLIC PANEL Routine 04/12/2019 5:49 Re sults for this AM CDT procedure are i n the results section. HC COMPLETE BLD COUNT Routine 04/12/2019 5:49 Re sults for this W/AUTO DIFF AM CDT procedure are i n the results section. XR CHEST 1 VW PORTABLE STAT 04/11/2019 9:40 R esults for this PM CDT procedure are i n the results section. RESPIRATORY PATHOGEN Routine 04/11/2019 9:12 Res ults for this PANEL PM CDT procedure are i n the results section. INFLUENZA ANTIGEN Routine 04/11/2019 9:12 Result s for this TEST, REFLEX NEGATIVE PM CDT proced ure are in TO RPP the results section. URINALYSIS STAT 04/11/2019 8:55 Results for this PM CDT procedure are i n the results section. GRAM STAIN Routine 04/11/2019 8:55 Results for this PM CDT procedure are i n the results section. URINE CULTURE Routine 04/11/2019 8:55 Results fo r this PM CDT procedure are i n the results section. BLOOD CULTURE, AEROBIC Routine 04/11/2019 8:40 R esults for this & ANAEROBIC PM CDT procedure are i n the results section. ESTIMATED GFR STAT 04/11/2019 8:25 Results fo r this PM CDT procedure are i n the results section. MAGNESIUM LEVEL STAT 04/11/2019 8:25 Results for this PM CDT procedure are i n the results section. PHOSPHORUS LEVEL STAT 04/11/2019 8:25 Results for this PM CDT procedure are i n the results section. LIPASE LEVEL STAT 04/11/2019 8:25 Results for this PM CDT procedure are i n the results section. CREATINE KINASE, TOTAL STAT 04/11/2019 8:25 R esults for this (CPK) PM CDT procedure are i n the results section. AMMONIA LEVEL STAT 04/11/2019 8:25 Results fo r this PM CDT procedure are i n the results section. VENOUS BLOOD GAS STAT 04/11/2019 8:25 Results for this PM CDT procedure are i n the results section. LACTIC ACID, I-STAT STAT 04/11/2019 8:25 Resu lts for this PM CDT procedure are i n the results section. COMPREHENSIVE STAT 04/11/2019 8:25 Results fo r this METABOLIC PANEL PM CDT procedure ar e in the results section. PROTHROMBIN TIME WITH STAT 04/11/2019 8:25 Re sults for this INR, I-STAT PM CDT procedure are i n the results section. HC COMPLETE BLD COUNT STAT 04/11/2019 8:25 Re sults for this W/AUTO DIFF PM CDT procedure are i n the results section. BLOOD CULTURE, AEROBIC Routine 04/11/2019 8:25 R esults for this & ANAEROBIC PM CDT procedure are i n the results section. after 04/10/2019 Results Estimated GFR (03/19/2020 4:22 AM CDT)Only the most recent of36 resultswithin the time period is included. Estimated GFR 46 (A) mL/min/1.73 [facility] Comment: m2 HOSPITAL Catergory Units Interpretation G1 >=90 Normal or high G2 60-89 Mildly decreased G3a 45-59 Mildly to moderately decreas ed G3b 30-44 Moderately to severely decre ased G4 15-29 Severely decreased G5 <15 Kidney failure The eGFR was calculated using the Chronic Kidney Disea se Epidemiology Collaboration (CKD-EPI) equation. Interpretation is based on recommendations of the National Kidney Foundation-Kidney Disease Outcomes [place] lity Initiative (NKF-KDOQI) published in 2014. Specimen Performing Organization Address City/State/Zipcode Phone Number [facility] DEPARTMENT OF PATHOLOGY AND [address] [place] [address] GENOMIC MEDICINE [facility] [address] [place] [address] Prothrombin time with INR (03/19/2020 4:22 AM CDT)Only the most recent of26 resultswithin the time period is included. Prothrombin time 17.3 (H) 11.5 - 14.5 [facility] INR 1.4 [place] Comment: JAINISM [facility] [employer] Normalized Ratio (INR) is a therapeu [facility] monitoring tool for patients who are stable on oral anticoagulant therapy. An INR of 2.0-3.0 is suggested for deep vein thrombosis/pulmonary embolism. Specimen Blood Performing Organization Address City/[facility]/Zipcode Phone Number [facility] DEPARTMENT OF PATHOLOGY AND [address] [place] [address] [phone] [address] CBC with platelet and differential (03/19/2020 4:22 AM CDT)Only the most recent of35 resultswithin the time period is included. WBC 6.03 4.50 - 11.00 [facility] k/uL [facility] RBC 3.50 (L) 4.20 - 5.50 [facility] HGB 10.1 (L) 12.0 - 16.0 [facility] HCT 31.7 (L) 37.0 - 47.0 % [facility] MCV 90.6 82.0 - 100.0 [facility] MCH 28.9 27.0 - 34.0 pg [facility] MCHC 31.9 31.0 - 37.0 [facility] RDW - SD 52.4 37.0 - 55.0 fL [facility] MPV 12.3 8.8 - 13.2 fL [facility] Platelet count 84 (L) 150 - 400 k/uL [facility] Nucleated RBC 0.00 /100 WBC [facility] Neutrophils 61.1 39.0 - 69.0 % [facility] Lymphocytes 24.0 (L) 25.0 - 45.0 % [facility] Monocytes 10.1 (H) 0.0 - 10.0 % [facility] Eosinophils 3.5 0.0 - 5.0 % [facility] Basophils 1.0 0.0 - 1.0 % [facility] Immature granulocytes 0.3Comment: 0.0 - 1.0 % [facility] "Immature HOSPITAL granulocytes" (promyelocytes , myelocytes, metamyelocytes ) Specimen Blood Performing Organization Address City/[facility]/Zipcode Phone Number [facility] DEPARTMENT OF PATHOLOGY AND [address] [place] [address] [phone] [address] Magnesium level (03/19/2020 4:22 AM CDT)Only the most recent of28 resultswithin the time period is included. Pathologist Sig [facility] Magnesium 1.7 1.6 - 2.6 mg/dL [facility] L Specimen Blood Performing Organization Address [facility] Phone Number [facility] DEPARTMENT OF PATHOLOGY AND [address] [place] [address] [phone] [address] Hepatic function panel (03/19/2020 4:22 AM CDT)Only the most recent of26 resultswithin the time period is included. Pathologist [facility] Albumin 3.2 (L) 3.5 - 5.0 [facility] g/dL [facility] Total bilirubin 1.1 0.0 - 1.2 [facility] mg/dL [facility] Bilirubin direct <0.2 0.0 - 0.3 [facility] mg/dL [facility] Alkaline phosphatase 75 35 - 104 U/L [facility] Protein 6.0 (L) 6.3 - 8.3 [facility] Comment: g/dL HOSPITAL - 4.6-7.0 g/dL 1 week 4.4-7.6 g/dL 7 months-1year 5.1-7.3 g/dL 1-2 years 5.6-7.5 g/dL >3 years 6.0-8.0 g/dL 18-150 6.3-8.3 g/dL ALT 20 5 - 50 U/L [facility] AST 30 10 - 35 U/L [facility] Specimen Blood Performing Organization Address [facility] Phone Number [facility] DEPARTMENT OF PATHOLOGY AND [address] [place] [address] [phone] [address] Basic metabolic panel (03/19/2020 4:22 AM CDT)Only the most recent of25 results within the time period is included. Pathologist Sig nature Sodium 143 135 - 148 mEq/L [facility] Potassium 3.4 (L) 3.5 - 5.0 mEq/L [facility] Chloride 104 98 - 112 mEq/L [facility] CO2 22 (L) 24 - 31 mEq/L [facility] Anion gap 17@ANIO (H) 7 - 15 mEq/L [facility] BUN 9 6 - 20 mg/dL [facility] Creatinine 1.27 (H) 0.50 - 0.90 mg/dL [facility] Glucose 151 (H) 65 - 99 mg/dL [facility] Calcium 9.0 8.3 - 10.2 mg/dL [facility] Specimen Blood Performing Organization Address City/State/Zipcode Phone Number [facility] DEPARTMENT OF PATHOLOGY AND [address] [place], [place] [address] GENOMIC MEDICINE [facility] [address] [place] [address] MRI Brain Wo Contrast (03/18/2020 10:27 PM CDT)Only the most recent of2 results within the time period is included. Specimen Narrative Performed At This result has an attachment that is no t available. EXAMINATION: MRI BRAIN WO CONTRAST RADIANT CLINICAL HISTORY: tremors COMPARISON: MRI brain 01/10/2020. TECHNIQUE: Multiplanar and multisequence MRI imaging of the brain was obtained without contrast. FINDINGS: No significant T2/T2 FLAIR signal abnorm alities identified. There is symmetric intrinsic T1 hyperintense signal throughout the globus pallidus bilaterally, image 14 of series 7, likely reflecting sequela related to cirrhosis. No territorial restricted diffusion iden tified to indicate recent infarct. No intra or extra-axial fluid collections identified. No mass, mass effect, or midline shift is seen. The thalami, midbrain, po ns and cervicomedullary junction are unremarkable. The ventricles and sulci are unremarkabl e for patient's age. Sella turcica is normal in appearance. The basal cisterns are patent. The calvarium appears intact. The major intracranial vascular flow voids are present. The orbital contents are symmetric and u nremarkable. Large mucous retention cyst is noted within the right maxilla sinus. The remaining paranasal sinuses are unremarkable. The mastoid air cells and middle ear cavities are clear. IMPRESSION: No acute intracranial abnormality identified. [facility]-[id number] Procedure Note Interface, Radiology Results Incoming - 03/18/2020 10:39 PM CDT EXAMINATION: MRI BRAIN WO CONTRAST CLINICAL HISTORY: tremors COMPARISON: MRI brain 01/10/2020. TECHNIQUE: Multiplanar and multisequence MRI imaging of the brain was obtained without contrast. FINDINGS: No significant T2/T2 FLAIR signal abnorm alities identified. There is symmetric intrinsic T1 hyperintense signal throughout the globus pallidus bilaterally, image 14 of series 7, likely reflecting sequela related to cirrhosis. No territorial restricted diffusion iden tified to indicate recent infarct. No intra or extra-axial fluid collections identified. No mass, mass effect, or midline shift is seen. The thalami, midbrain, janette and cervicomedullary junction are unremarkab le. The ventricles and sulci are unremarkabl e for patient's age. Sella turcica is normal in appearance. The basal cisterns are patent. The calvarium appears intact. The major intracranial vascular flow voids are present. The orbital contents are symmetric and u nremarkable. Large mucous retention cyst is noted within the right maxilla sinus. The remaining paranasal sinuses are unremarkable. The mastoid air cells and middle ear cavities are clear. IMPRESSION: No acute intracranial abnormality identi fied. [facility]-[id number] Performing Organization Address City/State/Zipcode Phone Number [facility] [address] [place] [address] Urinalysis screen and microscopy, with reflex to culture (03/18/2020 5:00 PM CDT)Only the most recent of2 resultswithin the time period is included. Specimen site Clean catch [facility] Color, UA Straw [facility] Appearance, UA Clear [facility] Specific gravity, UA 1.006 1.001 - 1.035 [facility] pH, UA 6.0 5.0 - 8.5 [facility] Protein, UA Negative Negative [facility] Glucose, UA Negative Negative [facility] Ketones, UA Negative Negative [facility] Bilirubin, UA Negative Negative [facility] Blood, UA Negative Negative [facility] Nitrite, UA Negative Negative [facility] Urobilinogen, UA <2.0 <2.0 [facility] Leukocyte esterase, Negative Negative [facility] Epithelial cells, UA 2 /HPF [facility] WBC, UA <1 0 - 4 /HPF [facility] RBC, UA None seen 0 - 5 /HPF [facility] Bacteria, UA Few None seen [facility] Yeast, UA None seen [facility] Yeast with None seen [facility] pseudohyphae, [facility] Specimen Urine Performing Organization Address City/State/Zipcode Phone Number [facility] DEPARTMENT OF PATHOLOGY AND [address] [place] [address] [phone] [address] Urine drugs of abuse screen (03/18/2020 5:00 PM CDT)Only the most recent of7 resultswithin the time period is included. Amphetamine screen, Negative [place] urine [facility] Barbiturate screen, Negative [place] urine [facility] Benzodiazepine Negative [place] screen, urine [facility] Cocaine screen, urine Negative [facility] Methadone metabolite Negative [place] (EDDP), urine [facility] Opiates screen, urine Negative [facility] Oxycodone screen, Negative [place] urine [facility] Phencyclidine screen, Negative [place] urine [facility] Tricyclic screen, Negative [facility] Cannabinoid screen, Negative [place] urine Comment: JAINISM Drug screen minimum concentration of detectability [facility]OSPITAL Amphetamines 1000 ng/mL Barbiturates 200 ng/mL Benzodiazepines 300 ng/mL Cocaine 300 ng/mL Methadone 300 ng/mL Opiates 300 ng/mL Oxycodone 300 ng/mL Phencyclidine 25 ng/mL Cannabinoids 50 ng/mL Tricyclics 1000 ng/mL Results are from screening tests and should only be used for medical evaluation. Drug testing for legal purposes requires definitive (or confirmatory) testing methods, which are available upon request. Contact the laboratory if definitive testing is requir ed. Specimen Urine Performing Organization Address City/[facility]/Zipcode Phone Number [facility] DEPARTMENT OF PATHOLOGY AND [address] [place] [address] [phone] [address] Urine culture (03/18/2020 5:00 PM CDT)Only the most recent of5 resultswithin the time period is included. Pathologist Sig nature Urine culture SEE COMMENTComment: [facility] Bacteriuria screen HOSPITAL negative. Specimen Performing Organization Address City/[facility]/Zipcode Phone Number [facility] DEPARTMENT OF PATHOLOGY AND [address] [place] [address] [phone] [address] [address] Head Wo Contrast (03/17/2020 10:17 PM CDT)Only the most recent of5 results within the time period is included. Specimen Narrative Performed At EXAMINATION: CT HEAD WO CONTRAST HM RADIANT CLINICAL HISTORY: tremors COMPARISON: CT head 01/07/2020. TECHNIQUE: Noncontrast head CT performed using radiati on dose reduction techniques. Technical factors are evaluated and adju sted to ensure appropriate moderation of exposure. Automated dose m anagement technology is applied to adjust radiatio n exposure while achieving a diagnostic quality silva ge. FINDINGS: No significant interval change appearing since the yandy or CT from 01/07/2020. No acute intra or extra-axial hemorrhage id entified. The gomez-white matter differentiation is preserved. The ba herson ganglia, thalami, midbrain, janette and cervicomedul allen junction are unremarkable. No mass, mass effect, or midline krishna ft is seen. Ventricles and sulci are normal in appearance for aspen ent's age. Basal cisterns are patent. Calvarium is intact . The orbital contents are symmetric and normal in appea arabella. Moderate mucous retention cyst is noted within the right maxill polo sinus. The remaining paranasal sinuses are unremarkable. The mast oid air cells and middle ear cavities are clear. Scalp sof t tissues are unremarkable. IMPRESSION: No acute intracranial abnormality identi fied. [facility]-[id number] Procedure Note Hm Interface, Radiology Results Incoming - 03/17/2020 10:22 PM CDT EXAMINATION: CT HEAD WO CONTRAST CLINICAL HISTORY: tremors COMPARISON: CT head 01/07/2020. TECHNIQUE: Noncontrast head CT performed using radiation dose reduction techniques. Technical factors are evaluated and adjusted to ensure appropriate moderation of exposure. Automated dose management technology is applied to adjust radiation exposure while achieving a diagnostic quality silva ge. FINDINGS: No significant interval change appearing since the prior CT from 01/07/2020. No acute intra or extra-axial hemorrhage identified. The gomez-white matter differentiation is preserved. The basal ganglia, thalami, midbrain, janette and cervicomedul allen junction are unremarkable. No mass, mass effect, or midline shift is seen. Ventricles and sulci are normal in appearance for patient's age. Basal cisterns are patent. Calvarium is intact. The orbital contents are symmetric and n ormal in appearance. Moderate mucous retention cyst is noted within the right maxillary sinus. The remaining paranasal sinuses are unremarkable. The mastoid air cells and middle ear cavities are clear. Scalp sof t tissues are unremarkable. IMPRESSION: No acute intracranial abnormality identi fied. [facility]-[id number] Performing Organization Address City/[facility]/Zipcode Phone Number [facility] [address] [place] [phone] Lactic acid level (03/17/2020 10:10 PM CDT)Only the most recent of2 results within the time period is included. Pathologist Sig nature Lactic acid 1.9 0.5 - 2.2 mmol/L [facility] HOSPIT [facility] Specimen Performing Organization Address [facility] Phone Number [facility] DEPARTMENT OF PATHOLOGY AND [address] [place] [phone] COVID-19 qualitative PCR (03/17/2020 6:10 PM CDT) Pathologist [facility] Interpretation Negative results do not prec lude 2019-nCoV infection and should not be used as the sole basis for treatment or other patient management decisions. Negative results must be combined with clinical observations, patient history, and epidemiological YIP information. [facility] COVID-19 qualitative Not-Detected Not-Detecte [place] PCR result d [facility] COVID-19 qualitative See link below for [place] PCR PDF Lab JAINISM ReportComment: [facility] Number: [id number] Specimen Nasopharyngeal swab Performing Organization Address [facility] [place] Phone Number [facility] DEPARTMENT OF PATHOLOGY AND [address] [place] [address] [facility] Ammonia level (03/17/2020 4:40 PM CDT)Only the most recent of12 resultswithin the time period is included. Pathologist Sig nature Ammonia 92 (H) 11 - 51 umol/L [facility] Specimen Blood Performing Organization Address [facility] Phone Number [facility] DEPARTMENT OF PATHOLOGY AND [address] [place] [phone] Urinalysis (03/17/2020 4:30 PM CDT)Only the most recent of8 resultswithin the time period is included. Glucose, UA Negative Negative [facility] EMERGENCY [facility] Bilirubin, UA Negative Negative [facility] Ketones, UA Negative Negative [facility] Specific gravity, 1.020 1.001 - 1.035 [facility] Blood, UA Trace (A) Negative [facility] pH, UA 6.0 5.0 - 8.5 [facility] Protein, UA Negative Negative [facility] Urobilinogen, UA <2.0 <2.0 [facility] Nitrite, UA Negative Negative [facility] Leukocyte esterase, Negative Negative [facility] Color, UA Yellow [facility] Appearance, UA Slightly Hazy [facility] Specimen Urine Performing Organization Address City/[facility] Phone Number DEPARTMENT OF PATHOLOGY AND [address] [place] [address] Prothrombin time with INR, I-Stat (03/17/2020 4:30 PM CDT)Only the most recent of5 resultswithin the time period is included. POC prothrombin 14.9 (H) 11.0 - 14.5 [place] time [facility] POC INR 1.3 [place] Comment: JAINISM The International Normalized Ratio (INR) is a therapeu [facility] monitoring tool for patients who are stable on oral EMERGENCY CARE vitamin K antagonist therapy. An INR of 2.0-3.0 is sug gested CENTER for deep vein thrombosis/pulmonary embolism. An INR of 2.5-3.5 (high dose) is suggested for some pa tients with mechanical heart valves) Specimen Blood Performing Organization Address City/[facility] Phone Number DEPARTMENT OF PATHOLOGY AND [address] [place] [address] [phone] Lactic acid, I-Stat (03/17/2020 4:30 PM CDT)Only the most recent of5 results within the time period is included. Pathologist Sig nature Lactic acid, I-Stat 3.1 (H) 0.5 - 2.2 mmol/L [facility] Specimen Blood Performing Organization Address City/[facility] Phone Number DEPARTMENT OF PATHOLOGY AND [address] [place] [address] [place] [address] EMERGENCY [facility] Ionized calcium (03/17/2020 4:30 PM CDT) Pathologist Sig nature pH 7.37 [facility] Ionized calcium 1.08 (L) 1.11 - 1.32 [facility] mmol/L [facility] Specimen Blood Performing Organization Address City/[facility] Phone Number [facility] DEPARTMENT OF PATHOLOGY AND [address] [place] [address] [place] [address] Amylase level (03/17/2020 4:30 PM CDT)Only the most recent of4 resultswithin the time period is included. Pathologist Sig nature Amylase 78 14 - 97 U/L [facility] Specimen Blood Performing Organization Address [facility] Phone Number DEPARTMENT OF PATHOLOGY AND [address] [place] [address] Alcohol level, blood (03/17/2020 4:30 PM CDT)Only the most recent of4 results within the time period is included. Alcohol None Detected mg/dL [facility] Comment: HOSPITAL Normal None Detected Legal Intoxication in [place] 80 mg/dL (0.08%) - Whole Blood Toxic Concentration 200 mg/dL (0.2%) Potentially Fatal 350 - 500 mg/dL (0. 35 - 0.5%) Alcohol percent None Detected % [facility] Specimen Blood Performing Organization Address [facility] Phone Number [facility] DEPARTMENT OF PATHOLOGY AND [address] [place] [address] [phone] [address] Comprehensive metabolic panel (03/17/2020 4:30 PM CDT)Only the most recent of11 resultswithin the time period is included. Sodium 137 128 - 145 mEq/L [facility] Potassium 3.8 3.6 - 5.1 mEq/L [facility] CO2 23 18 - 33 mEq/L [facility] Chloride 110 (H) 98 - 108 mEq/L [facility] Glucose 156 (H) 73 - 118 mg/dL [facility] Calcium 9.0 8.0 - 10.3 [facility] mg/dL [facility] BUN 11 7 - 22 mg/dL [facility] Creatinine 1.4 (H) 0.5 - 0.9 mg/dL [facility] Alkaline phosphatase 86 42 - 141 U/L [facility] ALT 23 10 - 47 U/L [facility] AST 36 11 - 38 U/L [facility] Total bilirubin 1.0 0.2 - 1.6 mg/dL [facility] Albumin 3.0 (L) 3.3 - 5.5 g/dL [facility] Protein 5.9 (L) 6.4 - 8.1 g/dL [facility] Anion gap 4@ANIO (L) 7 - 15 mEq/L [facility] A/G ratio 1.0 0.7 - 3.8 [facility] Specimen Blood Performing Organization Address City/State/Zipcode Phone Number DEPARTMENT OF PATHOLOGY AND [address] [place] [phone] [place] [address] Transthoracic Echocardiogram Stress, (w Doppler, w Contrast if needed) (03/14/2020 11:40 AM CDT) Specimen Narrative Performed At [facility] Stress Ech ocardiography Report [address], [place], [place] [address] Stress ECG tracings are availab le in MUSE, EPIC and CV Web All ECG interpretations a re included in this report Pat.Name: BELLA BARRON Pat.ID: [id number] St.Date: 03/14/2020 Refer.MD: ANGELA ROPER MD Exam Time: 10:00:00 AM Study Type:St ress Echo Height: 59in Weight: 200lb BSA: 1.85 m2 Ag e: 1960,59Y Sex: FEMALE BP: 124/62 HR: 62 bpm Sonogrphr: Janelle Mills RDCS, RVT Pat. Stat.:Outpatient Room: [facility] 16 Study Status:Final Echo Event ID:[id number] Order ID: [id number] Reason for Study:Liver transplant candid ate History / Clinical:Edema, Cirrhosis Procedures: Intravenous Definity Contras t, Stress Echo/Dobutamine and Colorflow Doppler Race: C SUMMARY: Overall Stress Interp: Normal Stress ech o. No evidence of ischemia at 84% of maximal predicated HR. Normal dobutamine stress echocardiogram despite achieving only 84% of maximum predicted heart rate[place] [address]. FINDINGS: Resting Findings LV: LV size is normal. LV EF is normal. Overall wall motion is normal. Estimated EF is 6 0-64%. RV: RV size is normal. RV systo lic function is normal. LA: LA volume is mild to modera tely enlarged. RA: RA size is normal. AO: Aortic root diameter is nor mal. GERA: No pericardial effusion. AV: No structural AV abnormalit ies noted. MV: Focal calcification of mitr al leaflets. A trace of mitral regurgitation. PV: No structural PV abnormalit ies noted. TV: No structural TV abnormalit ies noted. A trace of tricuspid regurgitation Ruano: Normal diastolic function an d LV filling pressures. Other: Estimated PA systolic pressu re is 27 mmHg plus RAP. Stress Findings LV: LV EF is hyperdynamic. Over all wall motion is hyperdynamic. Estimated EF is >70%. STRESS: Baseline Vital Signs: Intervention Dobutamine ECG Normal sinus Peak Dose 40 mcg/kg/min HR 62 Atropine 0.75 Rest BP: 124/62 Duration 16:00 Stress Test Results: Max HR 136 Contrast Definity 2 ml Target HR 162 % Target: 84 % MaxBP 168/72 O2 Sat 96 % Max RPP 59308 Symptoms and Complications: Arrhythmias PVCs Reason for Stopping Test: Other, Could n ot achieve 85% maximal predicted heart rate despite maximum utamine infusion rate and augmentation with atropine. Overall Stress Interp: Normal Stress ech o. No evidence of ischemia at 84% of maximal predicated HR. Stress ECG Interp Normal Stress ECG. No ST changes occurred during stress., Results must be viewed with cau tion since patient did not achieve the expected maximum heart rate response (85%) for age and sex of our normal population MEASUREMENTS: 2D Parasternal [place] Ao An 1.8 cm LVPWd 0.7 cm Ao Rtd 2.6 cm Index 1.4 cm/m2 LA Ds 3.6 cm IVSd 0.8 cm RWT 0.3 LVIDd 4.4 cm Index 2.4 cm/m2 LV Mass 99.2 g (87-129 ) LVIDs 2.7 cm LVM In dex 53.6 g/m LV%fs 37.7 % LVOT 1.7 cm LA Sng Plane LA Area 23.3 cm (8.8-23.4) LA Vol 77.8 ml Index 42.1 ml/m2 LA LngAx 5.9 cm LVOT LVOT Area 2.4 cm DOPPLER LVOT Stroke Vol & Cardiac Out LVOT TVI 36.7 cm HR 60 bpm LVOT LVOT SV 88.3 ml LVOT CO 5.3 l/min SVi 47.7 ml/m LVOT CI 2.9 l/m/m Signed 03/14/2020 02:03 PM Juni Yao MD Procedure Note Interface, Radiology Results In - 2019 2:03 PM CDT Stress Echocardiogra phy Report [address], [place], [place] [address] Stress ECG tracings are available in [employer], [employer] and [employer] All ECG interpretations are in cluded in this report Pat.Name: BELLA BARRON Pat.I D: [id number] St.Date: 03/14/2020 Refer .MD: ANGELA ROPER MD Exam Time: 10:00:00 AM Study Type:Stress Echo Height: 59in Weigh t: 200lb BSA: 1.85 m2 Age: 12 1960,59Y Sex: FEMALE BP: 124/62 HR: 62 bpm Sonogrphr: Janelle Mills RDCS, RVT Pat. Stat.:Outpatient Room: [facility] 16 Study Status:Final Echo Event ID:[id number] Order ID: [id number] Reason for Study:Liver transplant candid ate History / Clinical:Edema, Cirrhosis Procedures: Intravenous Definity Contras t, Stress Echo/Dobutamine and Colorflow Doppler Race: C SUMMARY: Overall Stress Interp: Normal Stress ech o. No evidence of ischemia at 84% of maximal predicated HR. Normal dobutamine stress echocardiogram despite achieving only 84% of maximum predicted heart rate[place] [address]. FINDINGS: Resting Findings LV: LV size is normal. LV EF is no rmal. Overall wall motion is normal. Estimated EF is 60-64% . RV: RV size is normal. RV systolic function is normal. LA: LA volume is mild to moderatel y enlarged. RA: RA size is normal. AO: Aortic root diameter is normal . GERA: No pericardial effusion. AV: No structural AV abnormalities noted. MV: Focal calcification of mitral leaflets. A trace of mitral regurgitation. PV: No structural PV abnormalities noted. TV: No structural TV abnormalities noted. A trace of tricuspid regurgitation Ruano: Normal diastolic function and LV filling pressures. Other: Estimated PA systolic pressure is 27 mmHg plus RAP. Stress Findings LV: LV EF is hyperdynamic. Overall wall motion is hyperdynamic. Estimated EF is >70%. STRESS: Baseline Vital Signs: Inter vention Dobutamine ECG Normal sinus Peak Dose 40 mcg/kg/min HR 62 Atrop ine 0.75 Rest BP: 124/62 Durat ion 16:00 Stress Test Results: Max HR 136 Contr ast Definity 2 ml Target HR 162 % Target: 84 % MaxBP 168/72 O2 Sa t 96 % Max RPP 34353 Symptoms and Complications: Arrhythmias PVCs Reason for Stopping Test: Other, Could n ot achieve 85% maximal predicted heart rate despite maximum utamine infusion rate and augmentation with atropine. Overall Stress Interp: Normal Stress ech o. No evidence of ischemia at 84% of maximal predicated HR. Stress ECG Interp Normal Stress ECG. No ST changes occurred during stress., Results must be viewed with cau tion since patient did not achieve the expected maximum heart rate response (85%) for age and sex of our normal population MEASUREMENTS: 2D Parasternal [place] Ao An 1.8 cm LVPW d 0.7 cm Ao Rtd 2.6 cm Inde x 1.4 cm/m2 LA Ds 3.6 cm IVSd 0.8 cm RWT 0.3 LVIDd 4.4 cm Inde x 2.4 cm/m2 LV Mass 99.2 g (87-129) LVIDs 2.7 cm LVM Index 53.6 g/m LV%fs 37.7 % LVOT 1.7 cm LA Sng Plane LA Area 23.3 cm (8.8-23.4) L A Vol 77.8 ml Index 42.1 ml/m2 LA LngAx 5.9 cm LVOT LVOT Area 2.4 cm DOPPLER LVOT Stroke Vol & Cardiac Out LVOT TVI 36.7 cm HR 60 bpm LVOT LVOT SV 88.3 ml LVOT CO 5.3 l/min SVi 47.7 ml/m LVO T CI 2.9 l/m/m Signed 03/14/2020 02:03 PM Juni Yao MD Performing Organization Address City/State/Zipcode Phone Number [facility] [address] [place] [address] Cv stress test (03/14/2020 11:40 AM CDT) Resting HR 65 [facility] MUSE Resting BP 124&62 [facility] MUSE Peak MET Achieved 1.0 [facility] MUSE Protocol Name DOBUT/ECHO [facility] MUSE Time in Exercise 00:15:00 H MUSE Phase Max Systolic BP 182 [facility] MUSE Max Diastolic BP 69 H MUSE Max Heart Rate 137 H MUSE Max Predicted Heart 162 H MUSE Rate Target HR Formula (220 - Age)*100% H MUSE Test Indication LIVER TRANSPLANT [facility] MUSE Arrhy During Ex [facility]USE ECG Interp Before EX [facility] ECG Interp During Ex [facility] Ex Summary Comment [facility] MUSE Overall HR Response [facility] MUSE to Exercise Overall BP Response [facility] MUSE To Exercise Reason for Protocol Complete [facility] MUSE Termination Stress Test -Waveform interpreted [facility] MUSE Impression in report associated with image study. No interpretation is provided as part of this Stress ECG report.-Electronically Signed By Owen FRANKLIN, Scott Wiseman ([id number]), book editor Marisol Hicks ([id number]) on 03/15/2020 5:27:46 AM Specimen Narrative Performed At This result has an attachment that is no t available. Performing Organization Address City/State/Zipcode Phone Number [facility] MUSE [address] [place] [address] General sleep study (03/11/2020 9:01 AM CDT) Specimen Narrative Performed At This result has an attachment that is no t available. Phosphorus level (02/21/2020 5:40 AM CDT)Only the most recent of26 results within the time period is included. Pathologist Sig nature Phosphorus 2.9 2.4 - 4.5 mg/dL [facility] L Specimen Blood Performing Organization Address City/[facility]/Zipcode Phone Number [facility] DEPARTMENT OF PATHOLOGY AND [address] [place], [place] [address] GENOMIC MEDICINE [address] [address] XR Abdomen 1 Vw Portable (02/19/2020 6:17 PM CDT)Only the most recent of3 resultswithin the time period is included. Specimen Narrative Performed At EXAMINATION: XR ABDOMEN 1 VW PORTABLE [facility] CLINICAL HISTORY: 59 years Female Abd pain unsp ecified, RLQ pain rule out constipation COMPARISON: January 07 IMPRESSION: There is a nonspecific bowel gas pattern . . There are no suspicious calcifications overlying the kidneys or expected course of the ureters The osseous structures are within normal limits The lung bases are clear . Procedure Note Interface, Radiology Results Incoming - 02/19/2020 6:26 PM CDT EXAMINATION: XR ABDOMEN 1 VW PORTABLE CLINICAL HISTORY: 59 years Female Abd pain unspecified, RLQ pain rule out constipation COMPARISON: January 07 IMPRESSION: There is a nonspecific bowel gas pattern . . There are no suspicious calcifications overlying the kidneys or expected course of the ureters The osseous structures are within normal limits The lung bases are clear . Performing Organization Address City/State/Zipcode Phone Number [facility] [address] [place] [address] Zinc level, serum (02/19/2020 6:08 AM CDT)Only the most recent of3 results within the time period is included. Zinc 109.1 60.0 - 120.0 [facility] Comment: ug/dL INTERPRETIVE INFORMATION: Zinc, Serum or Plasma Elevated results may be due to skin or collection-rela barron contamination, including the use of a noncertified met al-free collection/transport tube. If contamination concerns e xist due to elevated levels of serum/plasma zinc, confirmation wit h a second specimen collected in a certified metal-free tube is r ecommended. Circulating zinc concentrations are dependent on album in status and are depressed with malnutrition. Zinc may also b e lowered with infection, inflammation, stress, oral contracepti ves, and . Zinc may be elevated with zinc supplement ation or fasting. Elevated zinc concentrations may interfere with copper absorption. Test developed and characteristics determined by [facility]. See Compliance Statement B: Yolto/ CS Performed By: [facility] [address] [place] [address] [employer] Crewmember: Arpit Liu MD, MS Specimen Blood Performing Organization Address City/[facility]/Zipcode Phone Number [facility] [address] [place] [address] [employer] [facility] [address] [place] [phone] Alpha fetoprotein (02/19/2020 6:08 AM CDT)Only the most recent of4 results within the time period is included. Pathologist [facility] Alpha fetoprotein 1.7 0.0 - 8.3 [place] Comment: ng/mL JAINISM The Delilah 8000 AFP immunoassay was used. HOSPITAL Results obtained with different assay methods or kits should not be used interchangeably and may be differen t. Specimen Serum Performing Organization Address [facility]/Zipcode Phone Number [facility] DEPARTMENT OF PATHOLOGY AND [address] [place] [phone] [facility] MEDICINE [address] [address] Vitamin D 25 hydroxy level (02/19/2020 6:08 AM CDT)Only the most recent of2 resultswithin the time period is included. Pathologist [facility] Vitamin D, 11.1 (L) 30.0 - 150.0 [facility] 25-hydroxy Comment: ng/mL HOSPITAL This assay reports the sum of 25-hydroxy vitamin D3 an d 25-hydroxy vitamin D2. Reference range: 0-17 years: Deficiency: less than 20ng/mL Optimum level: greater than or equal to 20 ng/mL. 18 years and older: Deficiency: less than 20ng/mL Insufficiency: 20-29 ng/mL Optimum Level: 30-80 ng/mL The assay reportable range is 3.4 155.9 ng/mL. Level s higher than 150 ng/mL may be associated with toxicity. If toxicity is clinically suspected and the reported r esult is >155.9 ng/mL,contact lab for alternative methods to obtain a definitive level. If separate quantitation of 25-hydroxy vitamin D3 and 25-hydroxy vitamin D2 is needed, please contact lab for alternative methods. Specimen Blood Performing Organization Address City/[facility] Phone Number [facility] DEPARTMENT OF PATHOLOGY AND [address] [place] [phone] Thyroid stimulating hormone (02/19/2020 6:08 AM CDT)Only the most recent of3 resultswithin the time period is included. Pathologist Sig nature TSH 1.83 0.27 - 4.20 uIU/mL [facility] Specimen Blood Performing Organization Address [facility] Phone Number [facility] DEPARTMENT OF PATHOLOGY AND [address] [place], [place] [address] [address] [place] [address] T4 (02/19/2020 6:08 AM CDT)Only the most recent of2 resultswithin the time period is included. Pathologist Sig nature T4 <3.0 (L) 4.5 - 11.7 ug/dL [facility] Specimen Blood Performing Organization Address [facility] Phone Number [facility] DEPARTMENT OF PATHOLOGY AND [address] [place] [address] Hemoglobin A1c (02/19/2020 6:08 AM CDT)Only the most recent of7 resultswithin the time period is included. Hemoglobin A1C 4.9 4.0 - 5.6 % [facility] Comment: HOSPITAL HbA1c cutoffs for diagnosing diabetes: 4.0% - 5.6% = normal 5.7% - 6.4% = increased risk for diabetes (prediabetes )9 >=6.5% = diabetes9 Goals for glycemic control (ADA 2016) < 7.0% Target for non adults with diabetes. More or less stringent targets may be appropriate for individual patients. <7.5% Target for Children and adolescents with type 1 diabetes. Specimen Blood Performing Organization Address City/[facility] [place] Phone Number [facility] DEPARTMENT OF PATHOLOGY AND [address] [place] [address] [place] [address] Partial thromboplastin time, activated (02/18/2020 10:00 AM CDT)Only the most recent of3 resultswithin the time period is included. PTT 37.4 (H) 23.0 - 36.0 [facility] Comment: [facility] PTT therapeutic range for unfractionated heparin is 61.0-112.0 seconds which corresponds to Anti-Xa 0.3-0.7 U/ml. Specimen Blood Performing Organization Address City/[facility]/Zipcode Phone Number [facility] DEPARTMENT OF PATHOLOGY AND [address] [place] [phone] Total iron binding capacity (01/20/2020 12:39 PM CDT) Pathologist Sig nature Iron level 60 37 - 145 ug/dL [facility] Iron binding capacity 321 200 - 400 ug/dL [facility] % Saturation 18.7 15.0 - 38.0 % [facility] Specimen Blood Performing Organization Address City/[facility] Phone Number [facility] DEPARTMENT OF PATHOLOGY AND [address] [place] [address] [place] [phone] Ferritin level (01/20/2020 12:39 PM CDT) Pathologist Sig nature Ferritin level 28 13 - 150 ng/mL [facility] Specimen Blood Performing Organization Address City/[facility]/Zipcode Phone Number [facility] DEPARTMENT OF PATHOLOGY AND [address] [place] [address] [place] [phone] Opiates, s/p, quant (01/19/2020 11:14 AM CDT) 6-acetylmorphine, <2 ng/mL [facility] s/p, quant Comment: INTERPRETIVE INFORMATION: Opiates, Serum or Plasma, Quantitative Methodology: Quantitative Liquid Chromatography-Tandem Mass Spectrometry Positive cutoff: 2 ng/mL For medical purposes only; not valid for forensic use. Identification of specific drug(s) taken by specimen d onor is problematic due to common metabolites, some of which a re prescription drugs themselves. The absence of expected drug(s) and/or drug metabolite(s) may indicate non-compliance, inappropriate timing of specimen collection relative t o drug administration, poor drug absorption, or limitations o f testing. All drugs covered are the non-glucuronidated (free) fo rm. The concentration value must be greater than or equal to t he cutoff to be reported as positive. A very small amount of an une xpected drug analyte in the presence of a large amount of an expect ed drug analyte may reflect pharmaceutical impurity. Interpret chago questions should be directed to the laboratory. Test developed and characteristics determined by [facility]. See Compliance Statement B: [employer]/ CS Codeine, s/p, <2 ng/mL [facility] quant Morphine, s/p, 2 ng/mL [facility] quant Comment: Morphine may arise from morphine-containing drugs, pop py seeds, or by metabolism of either codeine or 6-AM. Morphine is m etabolized to hydromorphone. Hydrocodone, s/p, <2 ng/mL [facility] quant Hydromoprhone, <2 ng/mL [facility] s/p, quant Oxycodone, s/p, <2 ng/mL [facility] LAB quant Oxymorphone, s/p, <2 ng/mL [facility] Comment: Performed by [facility], [address], [place] [id number] [email or web address], Arpit Liu MD, Lab. Director Specimen Performing Organization Address City/State/Zipcode Phone Number [facility] [address] [place] [address] [facility] [address] [place] [address] Miscellaneous referral test (01/19/2020 11:14 AM CDT) Pathologist [facility] [place] Misc test name PEth (Phosphatidylethanol SHOWN ABOV E (PEth) Alcohol Misc test result SEE NOTE SHOWN ABOVE Comment: Phosphatidylethanol (PEth), Whole Blood, Quantitative Tiempy test code [id number] PEth 16:0/18.1 (POPEth) 41 ng/mL INTERPRETIVE INFORMATION:Phosphatidylethanol (PEth), W hole Blood Phosphatidylethanol (PEth) homologues Result Inte rpretation PEth 16:0/18.1 (POPEth) Less than 10 ng/mL..............Not detected Less than 20 ng/mL..............Abstinence or light al cohol consum ption 20 - 200 ng/mL..................Moderate alcohol consu mption Greater than 200 ng/mL..........Heavy alcohol consumpt ion or chroni c alcohol use PEth 16:0/18.2 (PLPEth).........Reference ranges are n nasir carcamo. (Reference: Jesica Adan and Dante Torres 2018 J. Forensic Sci) Phosphatidylethanol (PEth) is a group of phospholipids formed in the presence of ethanol, phospholipase D and phosphatidylcholine. PEth is known to be a direct alco hol biomarker. The predominant PEth homologues are PEth 16 :0/18:1 (POPEth) and PEth 16:0/18:2 (PLPEth), which account fo r 37-46% and 26-28% of the total PEth homologues, respectively. PEth is incorporated into the phospholipid membrane of red blo od cells and has a general half-life of 4 - 10 days and a windo w of detection of 2-4 weeks. However, the window of detecti on is longer in individuals who chronically or excessively c onsume alcohol. The limit of quantification is 10 ng/mL. Seri al monitoring of PEth may be helpful in monitoring alcoho l abstinence over time. PEth results should be interpr eted in the context of the patients clinical and behavioral histor y. Patients with advanced liver disease may have falsely elevated PEth concentrations (Mirna MOHAN et al 2018, Alcoholism Clinical & Experimental Research). Test developed and characteristics determined by [facility]. See Compliance Statement B: Yolto/ CS - - - - - - - - - - - - - - - - - - - - - - - - - - - - - - PEth 16:0/18.2 (PLPEth) 49 ng/mL ===== Test performed by: [facility] [address] [place], [place] [address] Specimen Performing Organization Address City/State/Zipcode Phone Number [facility] DEPARTMENT OF PATHOLOGY AND [address] [place], [place] [address] GENOMIC MEDICINE SHOWN ABOVE Drug kim 9, ser/carolyn, scrn w/rflx to conf (01/19/2020 11:14 AM CDT) Amphetamines, Negative Cutoff 30 [facility] s/p, screen ng/mL Methamphetamine, Negative Cutoff 30 [facility] s/p, screen ng/mL Barbiturates, Negative Cutoff 75 [facility] s/p, screen ng/mL Benzodiazepines, Negative Cutoff 75 [facility] s/p, screen ng/mL Cocaine, s/p, Negative Cutoff 30 [facility] screen ng/mL Methadone, s/p, Negative Cutoff 40 [facility] screen ng/mL Opiates, s/p, Positive Cutoff 30 [facility] screen Comment: ng/mL If the screen is positive, then confirmation by mass s pectrometry will be added. Additional charges will apply. Unconfirmed positive may be useful for medical purpos es, but does not meet forensic standards. Oxycodone, s/p, Negative Cutoff 30 [facility] screen ng/mL Phencyclidine, Negative Cutoff 15 [facility] s/p, screen ng/mL Cannabinoids, Negative Cutoff 30 [facility] s/p, screen ng/mL Drug screen See Note [facility] comments, serum Comment: INTERPRETIVE INFORMATION: Drug Screen 9 Panel, Serum o r Plasma - Immuno assay Screen with Reflex to Mass Spectrometry Confirmation/Qu antitation 1. Methodology: Qualitative Immunoassay Screen 2. Drugs/Drug classes reported as "Positive" are autom atically reflexed to mass spectrometry confirmation/quantitatio n testing. An immunoassay unconfirmed positive screen result may be useful for medical purposes but does not meet forensic standa rds. 3. The absence of expected drug(s) and/or drug metabol ite(s) may indicate non-compliance, inappropriate timing of speci men collection relative to drug administration, poor drug absorption, or limitations of testing. The concentration at which the screening test can detect a drug or metabolite varies within a drug class. Specimens for which drugs or drug classes are detected by the screen are automatically reflexed to a second, more specific technology (mass spectrometry). The concentra tion value must be greater than or equal to the cutoff to be repo rted as positive. Interpretive questions should be directed to the laboratory. 4. For medical purposes only; not valid for forensic u se. Test developed and characteristics determined by [facility]. See Compliance Statement B: Yolto/ CS Performed by [facility], [address] [place] [address] www.[email or web address], Arpit Liu MD, Lab. Director Specimen Blood Performing Organization Address City/[facility]/Zipcode Phone Number [facility] [address] [place] [phone] [facility] [address] [place] [phone] Blood culture, aerobic & anaerobic (01/19/2020 3:00 AM CDT)Only the most recent of11 resultswithin the time period is included. Blood culture No growth after 5 days of incubation. DANAE CORLEY isolate Comment: HOSPITAL Specimen Information Specimen Source: Blood Specimen Site: Arm, left Specimen Blood - Arm, left Performing Organization Address City/[facility]/Zipcode Phone Number [facility] DEPARTMENT OF PATHOLOGY AND [address] [place] [phone] GENOMIC MEDICINE [facility] [address] [place] [address] Urinalysis, automated with microscopy (01/19/2020 2:30 AM CDT)Only the most recent of3 resultswithin the time period is included. Pathologist Sig nature Color, UA Yellow [facility] Appearance, UA Hazy [facility] Specific gravity, UA 1.017 1.001 - 1.035 [facility] pH, UA 5.0 5.0 - 8.5 [facility] Protein, UA Negative Negative [facility] Glucose, UA Negative Negative [facility] Ketones, UA Negative Negative [facility] Bilirubin, UA Negative Negative [facility] Blood, UA Negative Negative [facility] Nitrite, UA Negative Negative [facility] Urobilinogen, UA <2.0 <2.0 [facility] Leukocyte esterase, Negative Negative [facility] Epithelial cells, UA 11 /HPF [facility] WBC, UA 1 0 - 4 /HPF [facility] RBC, UA 1 0 - 5 /HPF [facility] Bacteria, UA Few None seen [facility] Yeast, UA None seen [facility] Yeast with None seen [facility] pseudohyphae, HOSPITAL Specimen Urine Performing Organization Address City/[facility] Phone Number [facility] DEPARTMENT OF PATHOLOGY AND [address] [place] [address] [phone] [address] Prealbumin level (01/19/2020 2:00 AM CDT)Only the most recent of4 resultswithin the time period is included. Pathologist Sig nature Prealbumin 12 (L) 16 - 32 mg/dL [facility] Specimen Serum Performing Organization Address [facility] Phone Number [facility] DEPARTMENT OF PATHOLOGY AND [address] [place] [address] [address] XR Foot 3+ Vw Right (01/18/2020 9:39 PM CDT)Only the most recent of2 results within the time period is included. Specimen Narrative Performed At EXAMINATION: XR FOOT 3 VW RIGHT [facility] CLINICAL HISTORY: fall distal bruisi ng and swelling COMPARISON: January 10, 2020 IMPRESSION: 1. Approximately age and gender appropriate mineraliza tion of the osseous structures. 2. Adequate nonweightbearing alignment of the right fo ot without acute fracture. Sclerosis of the head of the second metatars al might be seen in the setting of Freiberg's infraction, clinical rashaad elation recommended. Mild midfoot osteoarthritis . Small plantar calcaneal spur. 3. No focal soft tissue abnormality. [facility]-[id number] Procedure Note Hm Interface, Radiology Results Incoming - 01/18/2020 9:44 PM CDT EXAMINATION: XR FOOT 3 VW RIGHT CLINICAL HISTORY: fall distal bruising and swelling COMPARISON: January 10, 2020 IMPRESSION: 1. Approximately age and gender appropri ate mineralization of the osseous structures. 2. Adequate nonweightbearing alignment o f the right foot without acute fracture. Sclerosis of the head of the second metatarsal might be seen in the setting of Freiberg's infraction, clinical correlation recommended. Mild midfoot osteoarthritis. Small plantar calcaneal spur. 3. No focal soft tissue abnormality. [facility]-[id number] Performing Organization Address City/[facility]/Zipcode Phone Number SABINE ORTEGA [address] [place] [address] XR Foot 2 Vw Right (01/10/2020 6:22 PM CDT) Specimen Narrative Performed At EXAMINATION: XR FOOT 2 VW RIGHT [facility] HISTORY: 59 years Female Foot pain chronic etiol unknown initial exam COMPARISON: Right foot radiographs fro m 10/12/2019. FINDINGS: The alignment of the included bones is normal. No frac ture or dislocation is identified in the right foot. There are tiny enthesophytes at the plantar insertion of the calcaneu s. There is mild to space narrowing at the first MTP join t and in the interphalangeal joints of the second through fifth dig its. The soft tissues are unremarkable. IMPRESSION: 1.No fracture or dislocation is identifi ed in the right foot. 2.Tiny enthesophytes at the plantar inse rtion of the calcaneus. 3.Mild degenerative changes of the first MTP joint and in the interphalangeal joints of the second thr ough fifth digits. [facility]-[id number] Procedure Note Interface, Radiology Results Incoming - 01/10/2020 7:27 PM CDT EXAMINATION: XR FOOT 2 VW RIGHT HISTORY: 59 years Female Foot pain chr onic etiol unknown initial exam COMPARISON: Right foot radiographs from 10/12/2019. FINDINGS: The alignment of the included bones is n ormal. No fracture or dislocation is identified in the right foot. There are tiny enthesophytes at the plantar insertion of the calcaneus. There is mild to space narrowing at the first MTP joint and in the interphalangeal joints of the second thr ough fifth digits. The soft tissues are unremarkable. IMPRESSION: 1.No fracture or dislocation is identifi ed in the right foot. 2.Tiny enthesophytes at the plantar inse rtion of the calcaneus. 3.Mild degenerative changes of the first MTP joint and in the interphalangeal joints of the second through fifth digits. [facility]-[id number] Performing Organization Address City/[facility]/Zipcode Phone Number [facility] [address] [place] [address] Sodium level, urine, random (01/09/2020 5:30 AM CDT) Pathologist Sig nature Sodium, urine, random 45 mEq/L [facility] Specimen Urine Performing Organization Address City/[facility]/Zipcode Phone Number [facility] DEPARTMENT OF PATHOLOGY AND [address] [place] [address] [phone] [address] Creatinine level, urine, random (01/09/2020 5:30 AM CDT) Pathologist Sig nature Creatinine, urine, 182 mg/dL [facility] Specimen Urine Performing Organization Address City/[facility] Phone Number [facility] DEPARTMENT OF PATHOLOGY AND [address] [place] [address] [phone] [address] Troponin, I-Stat (01/07/2020 2:45 PM CDT)Only the most recent of2 resultswithin the time period is included. Troponin, I-Stat 0.00 0.00 - 0.08 [facility] Comment: ng/mL [place] 0.09 - 1.49 ng/ml May indicate increa sed risk of acute EMERGENCY CARE coronary syndrome. [place] >=1.5 ng/ml Consistent with acute myocardial infarction. The diagnostic value of a single normal or non-diagnos tic result is questionable. Serial samples at 2-6 hour i ntervals are required to rule out acute myocardial injury. Specimen Blood Performing Organization Address [facility] Phone Number DEPARTMENT OF PATHOLOGY AND [address] [place] [phone] Creatine kinase, total (CPK) (01/07/2020 2:45 PM CDT)Only the most recent of2 resultswithin the time period is included. Pathologist Sig nature Creatine kinase 52 30 - 190 U/L [facility] Specimen Blood Performing Organization Address City/[facility]/Zipcode Phone Number DEPARTMENT OF PATHOLOGY AND [address] [place] [phone] [address] [address] cardiac calcium score (12/25/2019 1:31 PM CDT) Specimen Narrative Performed At [facility] Cardi ology and Cardiac CT [address] [facility], [place] [address] CT Calc [facility] Scoring Report Pat.Name: BELLA BARRON Pat.ID: [id number] St.Date: 12/25/2019 Refer.MD: ANGELA ROPER MD Exam Time: 1:10:00 PM Study Type:C T Calcium Scoring Height: 59in Weight: 195lb BSA: 1.83 m2 Ag e: 1960,59Y Sex: FEMALE HR: 152 bpm Nuclear Tech:RT Darrell(R)(CT) Pat. Stat.:Inpatient Nuclear Event ID:[id number] Order ID: [id number] Reason for Study:Liver Transplant Candid ate Procedures: CT Flash Mode Race: C SUMMARY: Technique: Sequential 3mm CT cuts were obtained thr ough the chest using the Siemens Somatom Force CT scanner with EC G gating. Interactive image viewing and volumetric display and curtis sis were also performed. The CAC score was quantified using the Agats ton scoring method. Non-contrast cardiac CT results are as f ollows: The total Coronary Artery Calcium Score (CACS) is 0 (ZERO). The non-contrast CT shows a normal cardi ac size, no pericardial abnormalities, a normal aortic root of 2 .9cm, a normal ascending thoracic aorta of 3.0cm and a normal d escending thoracic aorta of 2.5cm. The left main and right coronar y arteries appear to originate normally from the left and right sinus o f Valsalva. The right coronary artery is dominant. Non-Cardiac Findings: Hepatobiliar stent . High density material seen in spleen . ( suggestive of TIP proc edure ) Conclusion: Normal non-contrast cardiac CT. The kenyatta nary artery calcium score indicates no significant coronary athero sclerosis and a <0.3% risk per year of a major cardiac event. A CACS of zero is observed in 68% of women at age 58 years. Recommendations: (1) Continue primary preventative strate gies. FINDINGS: Signed 12/25/2019 2:07:00 PM Araseli Clemente MD Procedure Note Interface, Radiology Results In - 2019 10:28 AM CDT Nuclear Cardiology and Cardiac CT [address] [place] [address] CT Calcium Scoring Report Pat.Name: BELLA BARRON Pat.I D: [id number] St.Date: 12/25/2019 Refer .MD: ANGELA ROPER MD Exam Time: 1:10:00 PM Study Type:CT Calcium Scoring Height: 59in Weigh t: 195lb BSA: 1.83 m2 Age: 12 1960,59Y Sex: FEMALE HR: 152 bpm Nuclear Tech:RT Darrell(Christiana)(CT) Pat. Stat.:Inpatient Nuclear Event ID:[id number] Order ID: [id number] Reason for Study:Liver Transplant Candid ate Procedures: CT Flash Mode Race: C SUMMARY: Technique: Sequential 3mm CT cuts were obtained thr ough the chest using the Siemens Somatom Force CT scanner with EC G gating. Interactive image viewing and volumetric display and curtis sis were also performed. The CAC score was quantified using the Agats ton scoring method. Non-contrast cardiac CT results are as f ollows: The total Coronary Artery Calcium Score (CACS) is 0 (ZERO). The non-contrast CT shows a normal cardi ac size, no pericardial abnormalities, a normal aortic root of 2 .9cm, a normal ascending thoracic aorta of 3.0cm and a normal de scending thoracic aorta of 2.5cm. The left main and right coronary arteries appear to originate normally from the left and right sinus o f Valsalva. The right coronary artery is dominant. Non-Cardiac Findings: Hepatobiliar stent . High density material seen in spleen . ( suggestive of TIP proced ure ) Conclusion: Normal non-contrast cardiac CT. The kenyatta nary artery calcium score indicates no significant coronary athero sclerosis and a <0.3% risk per year of a major cardiac event. A CACS o f zero is observed in 68% of women at age 58 years. Recommendations: (1) Continue primary preventative strate gies. FINDINGS: Signed 12/25/2019 2:07:00 PM Araseli Clemente MD Performing Organization Address City/State/Zipcode Phone Number [facility] [address] [place] [address] [facility] NEED PHYS SKILL,DX OR RX (12/24/2019 2:11 PM CDT) Narrative Performed At Samanta Ravi RN 12/24/2019 2:1 2 PM Midline Date/Time: 12/24/2019 2:11 PM Performed by: Samanta Ravi RN Authorized by: Aramis Girard M D Consent: Consent obtained: Verbal Consent given by: Patient Risks discussed: arterial puncture, incorrect place ment, nerve damage, bleeding, infection, superficial thrombu s and deep vein thrombus Alternatives discussed: No treatmen t and delayed treatment [place] protocol: Procedure explained and questions ans wered to patient or proxy's satisfaction: yes Relevant documents present and verifi ed: yes Test results available and properly l abeled: yes Imaging studies available: yes Required blood products, implants, de vices, and special equipment available: yes Site/side marked: yes Immediately prior to procedure, a stefan e out was called: yes Patient identity confirmed: Verbally with patient , arm band, provided demographic data and hospital-assigned i dentification number Pre-procedure details: Hand hygiene: Hand hygiene performed prior to insertion Sterile barrier technique: All elemen ts of maximal sterile technique followed Skin preparation: 2% chlorhexidine Skin preparation agent: Skin preparation agent comp letely dried prior to procedure Anesthesia (see MAR for exact dosages): Anesthesia method: Local infiltrati on Local anesthetic: Lidocaine 1% w/o epi Route of administration: Subcutaneo us Line Placement Details: Patient position: Flat Vessel Size (mm): 4 Indication: Poor venous access Location: Right basilic Device Type: Non-valved Catheter size: 5 Fr Catheter to vein ratio: 43% Line Characteristics: Catheter Brand: MeaningoflavVenta midline External Catheter Length (cm): 0 Internal Catheter Length (cm): 12 Total Catheter Length (cm): 12 Catheter Lot Number: [id number] Catheter Expiration Date: 04/11/2021 Procedure Details: Landmarks identified: yes Ultrasound guidance: yes Sterile ultrasound techniques: Sterile gel and ster ile probe covers were used Number of attempts: 1 Number of PICC kits used during proce dure: 1 Purpose of procedure: Midline Place ment Patency/Placement: Flushes without difficulty, flushed with 10 mL normal saline, positive blood return and injection cap placed PICC placed utlizing ultrasound-guided Modified Caitlin johnnie Technique: Yes Dressing/Securement: Catheter secur ement device and antimicrobial dressing applied Blood Loss Amount: Less than 20 mL Post-Procedure Details: Post-procedure: Dressing applied Patient tolerance of procedure: Elan erated well, no immediate complications Lipase level (12/23/2019 4:36 PM CDT)Only the most recent of2 resultswithin the time period is included. Pathologist Sig nature Lipase 80 (H) 13 - 60 U/L [facility] Specimen Blood Performing Organization Address City/State/Zipcode Phone Number [facility] DEPARTMENT OF PATHOLOGY AND [address] [place], [place] [address] GENOMIC MEDICINE [facility] [address] [place] [address] Lipid panel (12/23/2019 4:36 PM CDT)Only the most recent of2 resultswithin the time period is included. Cholesterol 147 <200 mg/dL [facility] Triglycerides 61 <150 mg/dL [facility] HDL cholesterol 47 >40 mg/dL [facility] LDL cholesterol 95Comment: Result <100 mg/dL [place] obtained by direct JAINISM LDL measurement [facility] Comment: JAINISM Total Cholesterol (mg/dL) HOSPIT [facility] <200 Desirable 200-239 Borderline-high >=240 High Triglycerides (mg/dL) <150 Normal 150-199 Borderline-high 200-499 High >=500 Very high HDL Cholesterol (mg/dL) <40 Low (male) <40 Low (female) LDL Cholesterol (mg/dL) <100 Optimal 100-129 Near or above optimal 130-159 Borderline-high 160-189 High >=190 Very high Risk Catergories that modify LDL goals. Risk Catergories LDL goal (mg/d L) CHD and CHD risk equivalent <100 (10-year risk >20%) Multiple (2+) risk factors <130 (10-year risk =<20%) 0-1 risk factors <160 (<10-year risk) Defining levels of lipids in metabolic syndrome Triglycerides >=150 mg/dL HDL Cholesterol Men <40 mg /dL Women <40 mg/ dL Non-HDL cholesterol is a second target for therapy in persons with high triglycerides (>=200 mg/dL) Specimen Blood Performing Organization Address City/[facility]/Zipcode Phone Number [facility] DEPARTMENT OF PATHOLOGY AND [address] [place] [address] [phone] [address] POC creatinine (12/23/2019 12:28 PM CDT) POC creatinine 1.9 (H) 0.5 - 0.9 [facility] Comment: mg/dl HOSPITAL Outside Sales Account Representative Name: Jennifer Gleason Device ID: [id number] Specimen Blood Performing Organization Address City/[facility]/Zipcode Phone Number [facility] DEPARTMENT OF PATHOLOGY AND [address] [place] [address] [phone] [address] MRI Abdomen W Wo Contrast (10/15/2019 7:45 AM MEDIA LIBRARIAN)Only the most recent of2 resultswithin the time period is included. Specimen Narrative Performed At This result has an attachment that is no t available. EXAMINATION: MRI ABDOMEN W WO CONTRAST [facility] CLINICAL HISTORY: cirrhosis need to rule out HCC COMPARISON: MRI 04/23/2019 TECHNIQUE: Multiplanar, multisequence MR I of the abdomen with and without intravenous gadolinium. FINDINGS: The liver is cirrhotic. No focal hepatic mass is identified within limitation of moderate motion artifact. There is confluent fibrosis in the hepatic dome. Portal vein is patent. Status post TIPS. Gallbladder is absent. No biliary dilatation. Normal p ancreas. Mild left and moderate splenomegaly. No ascites. 5 cm posterior left renal cyst. There is some cortical atrophy of the kidneys. No adrenal mass. No lymphadenopathy. 3 cm incidental right adnexal cyst. Aorta is normal in caliber. Mesh repair of ventral hernia. IMPRESSION: Liver cirrhosis without evidence of HCC. Status post TIPS. No ascites. [facility]-[id number] Procedure Note Interface, Radiology Results Incoming - 10/15/2019 8:12 AM MEDIA LIBRARIAN EXAMINATION: MRI ABDOMEN W WO CONTRAST CLINICAL HISTORY: cirrhosis need to ru le out HCC COMPARISON: MRI 04/23/2019 TECHNIQUE: Multiplanar, multisequence MR I of the abdomen with and without intravenous gadolinium. FINDINGS: The liver is cirrhotic. No focal hepatic mass is identified within limitation of moderate motion artifact. There is confluent fibrosis in the hepatic dome. Portal vein is patent. Status post TIPS. Gallbladder is absent. No biliary dilata tion. Normal pancreas. Mild left and moderate splenomegaly. No ascites. 5 cm posterior left renal cyst. There is some cortical atrophy of the kidneys. No adrenal mass. No lymphadenopathy. 3 cm incidental right adnexal cyst. Aorta is normal in caliber. Mesh repair of ventral hernia. IMPRESSION: Liver cirrhosis without evidence of HCC. Status post TIPS. No ascites. [facility]-[id number] Performing Organization Address City/State/Zipcode Phone Number [facility] [address] [place] [address] Transthoracic Echocardiogram Complete, (w Contrast, Strain and 3D if needed) (10/14/2019 3:31 PM MEDIA LIBRARIAN) Specimen Narrative Performed At [facility] Echo cardiography Report [address] [facility], [facility] [address], [place] [address] Pat.Name: BELLA BARRON.ID: [id number] .Date: 10/14/2019 Refer.MD: HERIBERTO YORK MD Exam Time: 2:46:00 PM Study Type:R outine Echo Height: 59in Weight: 198lb BSA: 1.84 m2 Ag e: 1960,59Y Sex: FEMALE BP: 100/54 HR: 63 bpm Sonogrphr: Nichole Uribe RDCS; Jean Paul Irvin MD [facility]. Stat.:Inpatient Room: T0308-T Study Status:Final Echo Event ID:[id number] Order ID: [id number] Reason for Study:liver protocol transpla nt listing status History / Clinical:Edema, Cirrhosis Procedures: 2D Echo, Colorflow Doppler, Strain Race: C SUMMARY: Normal LV systolic and diastolic functio n. Normal RV systolic function. Normal RAP and PASP estimate. FINDINGS: LV: LV size is normal. Normal a verage LV global longitudinal strain at -24%. LV EF i s normal. Overall wall motion is normal. Estimated EF is 60-64%. RV: RV size is normal. RV systo lic function is normal. LA: LA volume is moderately enl arged. RA: RA size is normal. AO: Aortic root diameter is nor mal. GERA: No pericardial effusion. The re is an anterior space consistent with a promi nent epicardial fat pad. SVn: Inferior vena cava is luis l. Normal collapse of IVC during inspiration is consiste nt with normal RA pressure. AV: Tri cuspid aortic valve. MV: No structural MV abnormalit ies noted. PV: No structural PV abnormalit ies noted. TV: No structural TV abnormalit ies noted. Mild tricuspid regurgitation Ruano: Normal diastolic function an d LV filling pressures. Other: Estimated PA systolic pressu re is 20-25 mmHg, assuming a mean RAP of 0-5 mmHg. MEASUREMENTS: 2D Parasternal [place] Ao An 1.8 cm LVPWd 0.88 cm Ao Rtd 2.7 cm Index 1.5 cm/m2 LA Ds 3.6 cm IVSd 0.88 cm RWT 0.41 LVIDd 4.3 cm Index 2.3 cm/m2 LV Mass 120 g (87-12 9) LVIDs 2.9 cm LVM In dex 65 g/m LV%fs 33 % LVOT 1.6 cm LA Sng Plane LA Area 23 cm (8.8-23.4) LA Vol 78 ml Index 42 ml/m2 LA LngAx 5.8 cm Aorta Ao Asc 2.7 cm (2.1-3. 4) LVOT LVOT Area 2 cm DOPPLER LVOT Stroke Vol LVOT TVI 32 cm HR 67 bpm LVOT LVOT SV 64 ml LVOT CO 4.3 l/min SVi 35 ml/m LVOT C I 2.3 l/m/m Signed 10/14/2019 05:04 PM John Cervantes MD Procedure Note Interface, Radiology Results In - 2019 5:[address] [facility] Echocardiography Report [address] [place] [address] Pat.Name: BELLA BARRON Pat.I D: [id number] .Date: 10/14/2019 Refer .MD: HERIBERTO YORK MD Exam Time: 2:46:00 PM Study Type:Routine Echo Height: 59in Weigh t: 198lb BSA: 1.84 m2 Age: 12 1960,59Y Sex: FEMALE BP: 100/54 HR: 63 bpm Sonogrphr: Nichole Uribe RDCS; Jean Paul Irvin MD Pat. Stat.:Inpatient Room: N7259-V Study Status:Final Echo Event ID:[id number] Order ID: [id number] Reason for Study:liver protocol transpla nt listing status History / Clinical:Edema, Cirrhosis Procedures: 2D Echo, Colorflow Doppler, Strain Race: C SUMMARY: Normal LV systolic and diastolic functio n. Normal RV systolic function. Normal RAP and PASP estimate. FINDINGS: LV: LV size is normal. Normal aver age LV global longitudinal strain at -24%. LV EF is norm al. Overall wall motion is normal. Estimated EF is 60-64 %. RV: RV size is normal. RV systolic function is normal. LA: LA volume is moderately enlarg ed. RA: RA size is normal. AO: Aortic root diameter is normal . GERA: No pericardial effusion. There is an anterior space consistent with a prominent e picardial fat pad. SVn: Inferior vena cava is normal. Normal collapse of IVC during inspiration is consistent wit h normal RA pressure. AV: Tri cuspid aortic valve. MV: No structural MV abnormalities noted. PV: No structural PV abnormalities noted. TV: No structural TV abnormalities noted. Mild tricuspid regurgitation Ruano: Normal diastolic function and LV filling pressures. Other: Estimated PA systolic pressure is 20-25 mmHg, assuming a mean RAP of 0-5 mmHg. MEASUREMENTS: 2D Parasternal [place] Ao An 1.8 cm LVPW d 0.88 cm Ao Rtd 2.7 cm Inde x 1.5 cm/m2 LA Ds 3.6 cm IVSd 0.88 cm RWT 0.41 LVIDd 4.3 cm Inde x 2.3 cm/m2 LV Mass 120 g (87-129) LVIDs 2.9 cm LVM Index 65 g/m LV%fs 33 % LVOT 1.6 cm LA Sng Plane LA Area 23 cm (8.8-23.4) L A Vol 78 ml Index 42 ml/m2 LA LngAx 5.8 cm Aorta Ao Asc 2.7 cm (2.1-3.4) LVOT LVOT Area 2 cm DOPPLER LVOT Stroke Vol LVOT TVI 32 cm HR 67 bpm LVOT LVOT SV 64 ml LVOT CO 4.3 l/min SVi 35 ml/m LVO T CI 2.3 l/m/m Signed 10/14/2019 05:04 PM John Cervantes MD Performing Organization Address City/State/Zipcode Phone Number CUPID [address] [place] [address] Potassium level (10/14/2019 9:27 AM MEDIA LIBRARIAN) Pathologist [facility] Potassium 4.1 3.5 - 5.0 mEq/L [facility] L Specimen Plasma specimen Performing Organization Address City/[facility] Phone Number [facility] DEPARTMENT OF PATHOLOGY AND [address] [place] [address] [phone] [address] Smear review (10/14/2019 4:45 AM MEDIA LIBRARIAN) Pathologist [facility] Platelet slide review Mkd decreased (A) [facility] Anisocytosis Moderate [facility] Ovalocytes Moderate [facility] Specimen Narrative Performed At Unable to perform testing, specimen is [facility] DEPARTMENT OF PATHOLOGY AND [facility] HEMOLYZED. Recollect requested for K, MEDICINE AST. BERTHA CASTRO/BRODY notified by CF at 10/14/2019 07:51. Performing Organization Address [facility] Phone Number [facility] DEPARTMENT OF PATHOLOGY AND [address] [place] [phone] GENOMIC MEDICINE [address] [address] Group A strep, rapid antigen (10/13/2019 2:40 AM MEDIA LIBRARIAN) Pathologist [facility] Group A strep, Negative for Group A Streptococcus antigen. [facility] rapid antigen Comment: [place] result Specimen Information EMERGENCY CARE Specimen Source: Throat CENTER Specimen Site: Not otherwise specified Specimen Throat - Not otherwise specified Performing Organization Address City/State/Zipcode Phone Number DEPARTMENT OF PATHOLOGY AND [address] [place], [place] [address] [facility] EMERGENCY CARE [facility] [address] [place] [address] EMERGENCY CARE CENTER Strep screen culture (10/13/2019 2:40 AM MEDIA LIBRARIAN) Strep screen No beta hemolytic Streptococci isolated [facility] culture isolate Comment: HOSPITAL Specimen Information Specimen Source: Throat Specimen Site: Not otherwise specified Specimen Throat - Not otherwise specified Performing Organization Address [facility]/Zipcode Phone Number [facility] DEPARTMENT OF PATHOLOGY AND [address] [place], [place] [address] GENOMIC [facility] [address] [place] [address] XR Foot 3+ Vw Left (10/12/2019 11:23 PM MEDIA LIBRARIAN) Specimen Narrative Performed At Examination: XR FOOT 3 VW LEFT [facility] Clinical History: Foot trauma Eyak n eg initial exam Comparison: None. Findings: 3 views of the left foot are obtained. No acute fractu re or dislocation is seen. The joint spaces are within normal limits. So ft tissues are unremarkable. IMPRESSION: 1. No acute abnormality identified in th e left foot. [facility]-[id number] Procedure Note Interface, Radiology Results Incoming - 10/12/2019 11:31 PM MEDIA LIBRARIAN Examination: XR FOOT 3 VW LEFT Clinical History: Foot trauma Eyak ne g initial exam Comparison: None. Findings: 3 views of the left foot are obtained. N o acute fracture or dislocation is seen. The joint spaces are within normal limits. Soft tissues are unremarkable. IMPRESSION: 1. No acute abnormality identified in th e left foot. [facility]-[id number] Performing Organization Address City/[facility]/Zipcode Phone Number [facility] [address] [place] [address] XR Knee 1 Or 2 Vw Right (10/12/2019 11:22 PM MEDIA LIBRARIAN)Only the most recent of2 resultswithin the time period is included. Specimen Narrative Performed At Examination: XR KNEE 1 OR 2 VW RIGHT [facility] Clinical History: Knee pain initial ex am Comparison: None. Findings: 2 views of the right knee are obtained. No acute fract ure or dislocation is seen. The joint spaces are within normal limits. So ft tissues are unremarkable. No joint effusion is seen. IMPRESSION: 1. No acute abnormality identified in th e right knee. [facility]-[id number] Procedure Note Interface, Radiology Results Incoming - 10/12/2019 11:32 PM MEDIA LIBRARIAN Examination: XR KNEE 1 OR 2 VW RIGHT Clinical History: Knee pain initial exa m Comparison: None. Findings: 2 views of the right knee are obtained. No acute fracture or dislocation is seen. The joint spaces are within normal limits. Soft tissues are unremarkable. No joint effusion is seen. IMPRESSION: 1. No acute abnormality identified in th e right knee. [facility]-[id number] Performing Organization Address City/State/Zipcode Phone Number [facility] [address] [place] [address] [place] Hepatic (09/02/2019 6:05 PM MEDIA LIBRARIAN) Specimen Narrative Performed At EXAM: [facility] CLINICAL DATA: cirrhosis hepatic enc ephalopathy COMPARISON: CT abdomen May 07 FINDINGS: A limited abdominal ultrasound was perfo rmed. LIVER: Liver is cirrhotic. No focal mass es detected by ultrasound. GALLBLADDER/CBD: There is been prior hysterectomy. T he common bile duct is normal in diameter at 4.1 mm PORTAL VEIN: .A TIPS shunt is in place and is patent a nd appears to have hepatopedal flow. The main portal vein is patent, 0.9 cm in diameter with hepatopedal flow. OTHER: There is no ascites. IMPRESSION: Cirrhosis without acute focal abnormali ty. TIPS patent Main portal vein patent with hepatopedal flow. Prior [facility]-[id number] Procedure Note Interface, Radiology Results Incoming - 09/02/2019 6:29 PM MEDIA LIBRARIAN EXAM: US HEPATIC CLINICAL DATA: cirrhosis hepatic encep halopathy COMPARISON: CT abdomen May 07 FINDINGS: A limited abdominal ultrasound was perfo rmed. LIVER: Liver is cirrhotic. No focal mass es detected by ultrasound. GALLBLADDER/CBD: There is been prior hy sterectomy. The common bile duct is normal in diameter at 4.1 mm PORTAL VEIN: .A TIPS shunt is in place a nd is patent and appears to have hepatopedal flow. The main portal vein is patent, 0.9 cm in diameter with hepatopedal flow. OTHER: There is no ascites. IMPRESSION: Cirrhosis without acute focal abnormali ty. TIPS patent Main portal vein patent with hepatopedal flow. Prior [facility]-[id number] Performing Organization Address City/State/Zipcode Phone Number [facility] [address] [place] [address] CT Cervical Spine Wo Contrast (09/01/2019 12:11 PM MEDIA LIBRARIAN) Specimen Narrative Performed At EXAMINATION: CT CERVICAL SPINE WO CONTRA ST [facility] CLINICAL HISTORY: Neck pain initial ex am COMPARISON: None TECHNIQUE: Axial noncontrast enhanced images of the ce rvical spine were obtained with coronal and sagittal reconstructed algor ithms. CT imaging was performed with iterative reconstruction technique and/or automated exposure control to reduce radiation dose. FINDINGS: The alignment of the cervical spine is within normal l imits. No subluxation. No displaced fractures identified. Scatte red tiny degenerative Schmorl's nodes with endplate sclerosis i s noted along the C3-C4, C4-C5 and C6-C7 intervertebral di sc spaces. No suspicious osseous lesion. Vertebral bod y heights are preserved. No prevertebral edema or neck mass identified. No cerv ical lymphadenopathy identified. Thyroid gland is normal in appearance. Lung apices are clear. Axial images through the disc spaces dem onstrate the following: C1-C2: No significant spinal canal steno sis. C2-C3: No significant posterior disc disease, spinal c anal, subarticular zone, or neural foraminal stenosis. C3-C4: Moderate right neural foraminal stenosis second polo to degenerative uncovertebral and facet arthrosis. No sig nificant posterior disc disease, spinal canal, subarticular zone, or left neural foraminal stenosis. C4-C5: Near complete intervertebral disc height loss w ith circumferential disc bulge which indents the ventral t hecal sac and results in mild to moderate central canal and moderate bilateral neural foraminal stenosis when combined with ma rginal endplate and facet osteophytes, image 63 of serie s 5. C5-C6: Near complete intervertebral disc height loss w ith circumferential disc bulge which indents the ventral t hecal sac and results in mild to moderate central canal and moderate bilateral neural foraminal stenosis when combined with ma rginal endplate and facet osteophytes, image 71 of serie s 5. C6-C7: Mild bilateral neural foraminal stenosis second polo to degenerative uncovertebral and facet art hrosis. Central canal is patent. C7-T1: No significant posterior disc disease, spinal c anal, subarticular zone, or neural foraminal stenosis. IMPRESSION: No fractures or traumatic injuries identified within t he cervical spine. Multilevel degenerative changes as detai led above [facility]-[id number] Procedure Note Hm Interface, Radiology Results Incoming - 09/01/2019 12:18 PM MEDIA LIBRARIAN EXAMINATION: CT CERVICAL SPINE WO CONTRAST CLINICAL HISTORY: Neck pain initial exa m COMPARISON: None TECHNIQUE: Axial noncontrast enhanced im ages of the cervical spine were obtained with coronal and sagittal reconstructed algorithms. CT imaging was performed with iterative reconstruction technique and/or automated exposure control to reduce radiation dose. FINDINGS: The alignment of the cervical spine is w ithin normal limits. No subluxation. No displaced fractures identified. Scattered tiny degenerative Schmorl's nodes with endplate sclerosis is noted along the C3-C4, C4-C5 and C6-C7 intervertebral di sc spaces. No suspicious osseous lesion. Vertebral bod y heights are preserved. No prevertebral edema or neck mass ident ified. No cervical lymphadenopathy identified. Thyroid gland is normal in appearance. Lung apices are clear. Axial images through the disc spaces dem onstrate the following: C1-C2: No significant spinal canal steno sis. C2-C3: No significant posterior disc dis ease, spinal canal, subarticular zone, or neural foraminal stenosis. C3-C4: Moderate right neural foraminal s tenosis secondary to degenerative uncovertebral and facet arthrosis. No significant posterior disc disease, spinal canal, subarticular zone, or left neural foraminal stenosis. C4-C5: Near complete intervertebral disc height loss with circumferential disc bulge which indents the ventral thecal sac and results in mild to moderate central canal and moderate bilateral neural foraminal stenosis when combined with marginal endplate and facet osteophytes, image 63 of serie s 5. C5-C6: Near complete intervertebral disc height loss with circumferential disc bulge which indents the ventral thecal sac and results in mild to moderate central canal and moderate bilateral neural foraminal stenosis when combined with marginal endplate and facet osteophytes, image 71 of serie s 5. C6-C7: Mild bilateral neural foraminal s tenosis secondary to degenerative uncovertebral and facet arthrosis. Central canal is patent. C7-T1: No significant posterior disc dis ease, spinal canal, subarticular zone, or neural foraminal stenosis. IMPRESSION: No fractures or traumatic injuries ident ified within the cervical spine. Multilevel degenerative changes as detailed above [facility]-[id number] Performing Organization Address City/State/Zipcode Phone Number [facility] [address] [place] [address] XR Shoulder 2+ Vw Left (09/01/2019 12:11 PM MEDIA LIBRARIAN) Specimen Narrative Performed At EXAMINATION: XR SHOULDER 2 VW LEFT [facility] CLINICAL HISTORY: fall pain COMPARISON: None. IMPRESSION: There is no evidence of acute left shoulder fracture o r dislocation. Mild degenerative changes are present with marginal os teophyte formation. [place] deformity is p resent from prior dislocation. [id number] Procedure Note Hm Interface, Radiology Results Incoming - 09/01/2019 12:36 PM MEDIA LIBRARIAN EXAMINATION: XR SHOULDER 2 VW LEFT CLINICAL HISTORY: fall pain COMPARISON: None. IMPRESSION: There is no evidence of acute left shoul jessica fracture or dislocation. Mild degenerative changes are present with marginal osteophyte formation. [place] deformity is present from prior dislocation. [id number] Performing Organization Address [facility] Phone Number [facility] [address] [place] [address] C-reactive protein (06/18/2019 4:50 AM MEDIA LIBRARIAN) Pathologist Sig nature CRP <0.30 0.00 - 0.50 mg/dL [facility] Specimen Plasma specimen Performing Organization Address [facility] Phone Number [facility] DEPARTMENT OF PATHOLOGY AND [address] [place] [address] [phone] [address] T4, free (06/18/2019 4:50 AM MEDIA LIBRARIAN) Pathologist Sig nature T4, free 0.6 (L) 0.9 - 1.7 ng/dL [facility] L Specimen Plasma specimen Performing Organization Address [facility] Phone Number [facility] DEPARTMENT OF PATHOLOGY AND [address] [place] [address] [phone] [address] Gram stain (06/17/2019 8:44 PM MEDIA LIBRARIAN)Only the most recent of3 resultswithin the time period is included. Gram stain result Rare WBC's [facility] Many Gram positive rods [facility] Few Gram negative rods Comment: Specimen Information Specimen Source: Urine Specimen Site: See UA Specimen Urine Performing Organization Address [facility]/State/Zipcode Phone Number [facility] DEPARTMENT OF PATHOLOGY AND [address] [place], [place] [address] GENOMIC MEDICINE [facility] [address] [place] [address] Manual differential (06/16/2019 9:45 AM MEDIA LIBRARIAN) Manual differential PERFORMED [facility] Neutrophils 69.0 39.0 - 69.0 % [facility] Lymphocytes 17.0 (L) 25.0 - 45.0 % [facility] Monocytes 12.0 (H) 0.0 - 10.0 % [facility] Eosinophils 2.0 0.0 - 5.0 % [facility] Basophils 0.0 0.0 - 1.0 % [facility] Metamyelocytes 0 % [facility] Promyelocytes 0 % [facility] Platelet slide review Decreased (A) [facility] Schistocytes Occasional [facility] Ovalocytes Moderate [facility] Specimen Performing Organization Address City/State/Zipcode Phone Number [facility] DEPARTMENT OF PATHOLOGY AND [address] [place] [phone] [facility] [address] [place] [address] [facility] [address] Echocardiogram complete w contrast and 3D if needed (05/08/2019 8:00 AM CDT) Specimen Narrative Performed At [facility] Echo cardiography Report Pat.Name: BELLA BARRON Pat.ID: [id number] .Date: 05/08/2019 Refer.MD: JULIO CÉSAR JEFFERY MD. Exam Time: 8:01:00 AM Study Type:R outine Echo Height: 59in Weight: 193lb BSA: 1.82 m2 Ag e: 1960,58Y Sex: FEMALE BP: 93/51 HR: 60 bpm Sonogr phr: CELSO Vernon Pat. Stat.:Inpatient Room: [id number] Study Status:Final Echo Event ID:[id number] Order ID: [id number] Reason for Study:Stroke History / Clinical:Edema, Cirrhosis Procedures: 2D Echo, Colorflow Doppler, Strain Race: C SUMMARY: LV EF is hyperdynamic.Estimated EF is >7 0%. RV systolic function is normal. LV filling pressure is normal. No significant valvular abnormalities. FINDINGS: LV: LV size is normal. LV EF is hyperdynamic. Overall wall motion is hyperdynamic. Estimated EF is >70%. RV: RV size is normal. RV systo lic function is normal. LA: LA volume is mildly enlarge d. RA: RA size is normal. AO: Aortic root diameter is nor mal. GERA: No pericardial effusion. AV: No structural AV abnormalit ies noted. MV: Mild mitral annular calcifi cation. Mild mitral regurgitation. PV: No structural PV abnormalit ies noted. No evidence of pulmonic regurgitation. TV: No structural TV abnormalit ies noted. Mild tricuspid regurgitation Ruano: LV filling pressure is luis l. Other: Estimated PA systolic pressu re is appx 23-28 mmHg, assuming a mean RAP of 5-10 mmHg (IVC not well visualized). MEASUREMENTS: 2D Parasternal [place] Ao An 1.7 cm LVPWd 0.9 cm Ao Rtd 2.6 cm Index 1.5 cm/m2 LA Ds 4.4 cm IVSd 0.9 cm RWT 0.4 LVIDd 4.3 cm Index 2.4 cm/m2 LV Mass 123.3 g (87-129 ) LVIDs 2.3 cm LVM In dex 67.8 g/m LV%fs 46.5 % LA Sng Plane LA Area 21.2 cm (8.8-23.4) LA Vol 63.6 ml Index 34.9 ml/m2 LA LngAx 5.9 cm RA Sng Plane RA Vol 51.1 ml Index 28.1 ml/m2 RA LngAx 5.2 cm RA Area 17.8 cm (8.3-19 .5) LVOT Stroke Vol LVOT 1.8 cm LVOT LVOT Area 2.5 cm DOPPLER LVOT Stroke Vol LVOT TVI 32.1 cm LVOT CI 2.7 l/m/m LVOT SV 81.6 ml HR 60 bpm LVOT CO 4.9 l/min LVOT SVi 44.8 ml/m Signed 05/08/2019 10:45 AM Maria De Jesus Metcalf MD Procedure Note Interface, Radiology Results In - 2018 10:45 AM CDT [facility] Echocardiography Report Pat.Name: BELLA BARRON Pat.I D: [id number] .Date: 05/08/2019 Refer .MD: JULIO CÉSAR JEFFERY MD. Exam Time: 8:01:00 AM Study Type:Routine Echo Height: 59in Weigh t: 193lb BSA: 1.82 m2 Age: 12 1960,58Y Sex: FEMALE BP: 93/51 HR: 60 bpm Sonog rphr: CELSO Vernon Pat. Stat.:Inpatient Room: [facility] Study Status:Final Echo Event ID:[id number] Order ID: [id number] Reason for Study:Stroke History / Clinical:Edema, Cirrhosis Procedures: 2D Echo, Colorflow Doppler, Strain Race: C SUMMARY: LV EF is hyperdynamic.Estimated EF is >7 0%. RV systolic function is normal. LV filling pressure is normal. No significant valvular abnormalities. FINDINGS: LV: LV size is normal. LV EF is hy perdynamic. Overall wall motion is hyperdynamic. Estim ated EF is >70%. RV: RV size is normal. RV systolic function is normal. LA: LA volume is mildly enlarged. RA: RA size is normal. AO: Aortic root diameter is normal . GERA: No pericardial effusion. AV: No structural AV abnormalities noted. MV: Mild mitral annular calcificat ion. Mild mitral regurgitation. PV: No structural PV abnormalities noted. No evidence of pulmonic regurgitation. TV: No structural TV abnormalities noted. Mild tricuspid regurgitation Ruano: LV filling pressure is normal. Other: Estimated PA systolic pressure is appx 23-28 mmHg, assuming a mean RAP of 5-10 mmHg (IVC not well visualized). MEASUREMENTS: 2D Parasternal [place] Ao An 1.7 cm LVPW d 0.9 cm Ao Rtd 2.6 cm Inde x 1.5 cm/m2 LA Ds 4.4 cm IVSd 0.9 cm RWT 0.4 LVIDd 4.3 cm Inde x 2.4 cm/m2 LV Mass 123.3 g (87-129) LVIDs 2.3 cm LVM Index 67.8 g/m LV%fs 46.5 % LA Sng Plane LA Area 21.2 cm (8.8-23.4) L A Vol 63.6 ml Index 34.9 ml/m2 LA LngAx 5.9 cm RA Sng Plane RA Vol 51.1 ml Inde x 28.1 ml/m2 RA LngAx 5.2 cm RA Area 17.8 cm (8.3-19.5) LVOT Stroke Vol LVOT 1.8 cm LVOT LVOT Area 2.5 cm DOPPLER LVOT Stroke Vol LVOT TVI 32.1 cm LVOT CI 2.7 l/m/m LVOT SV 81.6 ml HR 60 bpm LVOT CO 4.9 l/min LVOT SVi 44.8 ml/m Signed 05/08/2019 10:45 AM Maria De Jesus Metcalf MD Performing Organization Address City/State/Zipcode Phone Number [facility] [address] [place] [address] CT Abdomen Pelvis Wo Contrast (05/07/2019 5:25 PM CDT) Specimen Narrative Performed At EXAMINATION: CT ABDOMEN PELVIS WO CONT RAST HM [facility] CLINICAL HISTORY: lower abd pain COMPARISON: December 25, 2018 TECHNIQUE: Multiple axial CT images of the Abdomen and pelvis were obtained Without IV contrast limiting evaluation . Sag ittal and coronal reconstructions were done. Radiation dose reduction te chnique used for this study. CT imaging was performed with iterative reconstruction technique and/or automated exposure control to reduce rad iation dose. FINDINGS: HEPATOBILIARY: A TIPS shunt is in place. The liver i s cirrhotic. No obvious focal abnormality. GALLBLADDER: Absent from prior cholecyst ectomy. SPLEEN: Spleen is upper normal limits in size at 13 cm, stable from prior. PANCREAS: Unremarkable within the limi tations of a noncontrast exam. ADRENALS: No adrenal nodules. KIDNEYS: Nonobstructing punctate stones in the right kidney stable. Stable left renal cyst. No hydronephrosi s bilaterally. PERITONEUM/RETROPERITONEUM: No free ai r or fluid. No lymphadenopathy. ABDOMINAL AORTA/IVC: No signs of aneurys m. GI TRACT: Visualized portions of the bowel demonstra te no distention or wall thickening. There are no signs of appendicitis .No signs of diverticulitis. PELVIC ORGANS/BLADDER: The urinary bladder is fluid- filled. A right ovarian cyst measures up to 4 cm, stable. Left ovary u nremarkable. No enlarged lymph nodes. No free fluid. BONES AND SOFT TISSUES: No acute abnor mality. VISUALIZED LOWER CHEST: No acute abnorma lity. IMPRESSION: No significant acute abnormality. Stable 4 cm right ovarian cyst. [facility]-[id number] Procedure Note Interface, Radiology Results Incoming - 05/07/2019 5:47 PM CDT EXAMINATION: CT ABDOMEN PELVIS WO CONTRAST CLINICAL HISTORY: lower abd pain COMPARISON: December 25, 2018 TECHNIQUE: Multiple axial CT images of t he Abdomen and pelvis were obtained Without IV contrast limiting evaluation . Sagittal and coronal reconstructions were done. Radiation dose reduction technique used for this study. CT imaging was performed with iterative reconstruction technique and/or automated exposure control to reduce radiation dose. FINDINGS: HEPATOBILIARY: A TIPS shunt is in place . The liver is cirrhotic. No obvious focal abnormality. GALLBLADDER: Absent from prior cholecyst ectomy. SPLEEN: Spleen is upper normal limits i n size at 13 cm, stable from prior. PANCREAS: Unremarkable within the limit ations of a noncontrast exam. ADRENALS: No adrenal nodules. KIDNEYS: Nonobstructing punctate stones in the right kidney stable. Stable left renal cyst. No hydronephrosis bilaterally. PERITONEUM/RETROPERITONEUM: No free air or fluid. No lymphadenopathy. ABDOMINAL AORTA/IVC: No signs of aneurys m. GI TRACT: Visualized portions of the jacqueline wel demonstrate no distention or wall thickening. There are no signs of appendicitis.No signs of diverticulitis. PELVIC ORGANS/BLADDER: The urinary blad jessica is fluid-filled. A right ovarian cyst measures up to 4 cm, stable. Left ovary unremarkable. No enlarged lymph nodes. No free fluid. BONES AND SOFT TISSUES: No acute abnorm ality. VISUALIZED LOWER CHEST: No acute abnorma lity. IMPRESSION: No significant acute abnormality. Stable 4 cm right ovarian cyst. [facility]-[id number] Performing Organization Address City/[facility]/Zipcode Phone Number [facility] [address] [place] [address] B natriuretic pep, I-Stat (05/07/2019 4:10 PM CDT) Pathologist [facility] BNP, I-Stat 54 0 - 100 pg/mL [facility] Specimen Blood Performing Organization Address City/[facility]/Zipcode Phone Number DEPARTMENT OF PATHOLOGY AND [id number] [place] [phone] [address] [facility] ECG 12 lead (05/07/2019 3:54 PM CDT) Pathologist Sig nature Ventricular rate 63 [facility] Atrial rate 63 [facility] OR interval 148 [facility] QRSD interval 78 [facility] QT interval 430 [facility] QTC interval 440 [facility] P axis 1 36 [facility] QRS axis 1 29 [facility] T wave axis 42 [facility] EKG impression Normal sinus [facility] MUSE rhythm-Possible Left atrial enlargement-Borderline ECG-In automated comparison with ECG of 18-MAR-2019 22:02,-No significant change was found- Specimen Narrative Performed At This result has an attachment that is no t available. Performing Organization Address City/State/Zipcode Phone Number [facility] MUSE [address] [place] [address] Echocardiogram complete w contrast and 3D if needed (04/23/2019 3:34 PM CDT) Specimen Narrative Performed At This result has an attachment that is no t available. [facility] Echocardiography R eport [address] [facility] 9[place] [address] Pat.Name: BELLA BARRON.ID: [id number] .Date: 04/23/2019 Refer.MD: ANGELA ROPER MD Exam Time: 2:39:00 PM Study Type:Routine Echo Height: 59in Weight: 183lb BSA: 1.78 m2 Age: 11 1960,58Y Sex: FEMALE BP: 126/61 HR: 71 bpm Sonogrphr: Jennifer Augustin, BS, RDCS Pat. Stat.:Outpatient Room: [address] Study Status:Final Echo Event ID:[id number] Order ID: [id number] Reason for Study:cardiac clearance, pre liver transpla nt History / Clinical:Edema, Cirrhosis Procedures:2D Echo, Colorflow Doppler, Intravenous Herson ine Contrast Race: C SUMMARY: LV EF is normal. RV size is normal. RV systolic function is normal. FINDINGS: LV: LV size is normal. Concentric left ventri cular remodeling. LV EF is normal. Overall wall motion is normal. Estimated EF is 60-64%. RV: RV size is normal. RV systolic function i s normal. LA: LA volume is mildly enlarged. RA: RA size is normal. AO: Aortic root diameter is normal. GERA: No pericardial effusion. Cntrst: Right to left shunt through a patent forame n ovale. AV: No structural AV abnormalities noted. MV: Mild mitral annular calcification. Mild m itral regurgitation. PV: Pulmonic valve not well seen. TV: No structural TV abnormalities noted. Mil d tricuspid regurgitation Ruano: LV relaxation is reduced, appropriate for age. Other: Estimated PA systolic pressure is 27 mmHg, assuming a mean RAP of 5 mmHg. MEASUREMENTS: 2D Parasternal [place] LVOT 1.6 cm LA Ds 3.7 cm LVIDd 3.9 cm Index 2.2 cm/m Ao An 1.8 cm LVIDs 2.4 cm Ao Rtd 2.7 cm Index 1.5 cm/m LV%fs 38.5 % LV Mass 113.6 g (87-129) IVSd 0.9 cm LVM In dex 63.8 g/m2 LVPWd 1 cm RWT 0.5 LA Sng Plane LA Area 20.3 cm2 (8.8-23.4) LA Vol 62.3 ml Index 35 ml/m LA LngAx 5.5 cm RA Sng Plane RA Area 14.9 cm2 (8.3-19.5) RA Vol 36.6 ml Index 20.6 ml/m RA LngAx 4.9 cm DOPPLE R LVOT Stroke Vol LVOT 1.6 cm LVOT C O 4.1 l/min LVOT TVI 29.3 cm LVOT CI 2.3 l/m/m2 LVOT Tm 322 msec HR 69 bpm LVOT SV 58.9 ml MMODE Tricuspid Valve TAPSE 2 cm Signed 04/24/2019 11:31 AM Araseli Clemente M.D. Procedure Note Interface, Radiology Results In - 2018 11:32 AM CDT Echocardiography Report [address] [facility], [place] [address] , [place] [address] Name: BELLA BARRON D: [id number] .Date: 04/23/2019 Refer .MD: ANGELA ROPER MD Exam Time: 2:39:00 PM Study Type:Routine Echo Height: 59in Weigh t: 183lb BSA: 1.78 m2 Age: 11 1960,58Y Sex: FEMALE BP: 126/61 HR: 71 bpm Sonog rphr: Jennifer Augustin BS, RDCS Pat. Stat.:Outpatient Room: [facility] Study Status:Final Echo Event ID:[id number] Order ID: [id number] Reason for Study:cardiac clearance, pre liver transplant History / Clinical:Edema, Cirrhosis Procedures:2D Echo, Colorflow Doppler, I ntravenous Saline Contrast Race: C SUMMARY: LV EF is normal. RV size is normal. RV systolic function is normal. FINDINGS: LV: LV size is normal. Concentric left ventricular remodeling. LV EF is normal. Overall wall motion is normal. Estimated EF is 60-64%. RV: RV size is normal. RV systolic function is normal. LA: LA volume is mildly enlarged. RA: RA size is normal. AO: Aortic root diameter is normal . GERA: No pericardial effusion. Cntrst: Right to left shunt through a patent foramen ovale. AV: No structural AV abnormalities noted. MV: Mild mitral annular calcificat ion. Mild mitral regurgitation. PV: Pulmonic valve not well seen. TV: No structural TV abnormalities noted. Mild tricuspid regurgitation Ruano: LV relaxation is reduced, appr opriate for age. Other: Estimated PA systolic pressure is 27 mmHg, assuming a mean RAP of 5 mmHg. MEASUREMENTS: 2D Parasternal [place] LVOT 1.6 cm LA D s 3.7 cm LVIDd 3.9 cm Inde x 2.2 cm/m Ao An 1.8 cm LVIDs 2.4 cm Ao R td 2.7 cm Index 1.5 cm/m LV%fs 38.5 % LV M ass 113.6 g (87-129) IVSd 0.9 cm LVM Index 63.8 g/m2 LVPWd 1 cm RWT 0.5 LA Sng Plane LA Area 20.3 cm2 (8.8-23.4) LA Vol 62.3 ml Index 35 ml/m LA LngAx 5.5 cm RA Sng Plane RA Area 14.9 cm2 (8.3-19.5) RA Vol 36.6 ml Index 20.6 ml/m RA LngAx 4.9 cm DOPPLER LVOT Stroke Vol LVOT 1.6 cm LVOT CO 4.1 l/min LVOT TVI 29.3 cm LVOT CI 2.3 l/m/m2 LVOT Tm 322 msec HR 69 bpm LVOT SV 58.9 ml MMODE Tricuspid Valve TAPSE 2 cm Signed 04/24/2019 11:31 AM Araseli Clemente M.D. Performing Organization Address City/State/Zipcode Phone Number [facility] [address] [place] [address] XR Chest 1 Vw Portable (04/11/2019 9:40 PM CDT) Specimen Narrative Performed At EXAMINATION: XR CHEST 1 VW PORTABLE [facility] CLINICAL HISTORY: SOB COMPARISON: 11/14/2018. IMPRESSION: The lungs are clear. No pleural effusion or pneumothorax. The cardiomediastinal silhouette is normal. Thoracic a mahamed atherosclerotic calcifications. No acute osseous abnormalities. [facility]-[id number] Procedure Note Interface, Radiology Results Incoming - 04/11/2019 9:45 PM CDT EXAMINATION: XR CHEST 1 VW PORTABLE CLINICAL HISTORY: SOB COMPARISON: 11/14/2018. IMPRESSION: The lungs are clear. No pleural effusion or pneumothorax. The cardiomediastinal silhouette is norm al. Thoracic aorta atherosclerotic calcifications. No acute osseous abnormalities. [facility]-[id number] Performing Organization Address City/[facility]/Zipcode Phone Number [facility] [address] [place] [phone] Respiratory pathogen panel (04/11/2019 9:12 PM CDT) Pathologist [facility] [place] Respiratory Negative for all pathogens tested: [facility] pathogen panel Negative for Adenovirus JAINISM Negative for Coronavirus HKU1 HOSPITAL Negative for Coronavirus NL63 Negative for [...] real-time PCR assay detects the presence of nucle ic acids (RNA or DNA) for the respiratory pathogens liste d. A result of "Not-detected" does not exclude the possib ility of the presence of one or more pathogens at concentrat ions less than the detectable limits of the assay. Comment: Specimen Information Specimen Source: Nares Specimen Site: Left Specimen Nares - Left Performing Organization Address City/[facility] Phone Number [facility] DEPARTMENT OF PATHOLOGY AND [address] [place] [address] [phone] [address] Influenza antigen test, reflex negative to RPP (04/11/2019 9:12 PM CDT) Pathologist [facility] [place] Influenza antigen Negative for Influenza A/B antigen. [facility] Comment: HOSPITAL Specimen Information Specimen Source: Nares Specimen Site: Left Specimen Nares - Left Performing Organization Address City/[facility]/Zipcode Phone Number [facility] DEPARTMENT OF PATHOLOGY AND [address] [place] [address] [id number] [place] [address] Venous blood gas (04/11/2019 8:25 PM CDT) Pathologist Sig nature pH, venous, POC 7.37 7.32 - 7.42 [facility] pCO2, venous, POC 34 (L) 45 - 51 mm Hg [facility] pO2, venous, POC 33 25 - 40 mm Hg [facility] Base excess, venous, -5 (L) -2 - 2 mmol/L [facility] EMERGENCY [facility] Bicarbonate, venous, 19.3 (L) 21.0 - 28.0 [facility] mmol/L [facility] O2 saturation, 63 40 - 70 % [facility] venous, POC [facility] Specimen Blood Performing Organization Address City/State/Zipcode Phone Number DEPARTMENT OF PATHOLOGY AND [id number] [place] [phone] [facility] [address] [place] [address] [facility] after 04/10/2019 Insurance Payer Benefit Plan / Subscriber ID Effective Dates Phone Addre ss Type Group MEDICARE MEDICARE PART A xxxxxxxxxxx 2015-Present [place], [place] Medicare AND B MEDICAID MEDICAID xxxxxxxxx 2015-Present Med icaid Advance Directives For more information, please contact: [phone] Type Date 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 Advance Directives, Living Will and Medical Power of Pediatrician/Medical Doctor Advance Directives, 04/17/2017 3:25 PM Living Will and Medical Power of Pediatrician/Medical Doctor Advance Directives, 04/17/2017 12:00 AM Ad Dir and Compliance Living Will and contract Medical Power of Pediatrician/Medical Doctor Advance Directives, 04/17/2017 3:25 PM Living Will and Medical Power of Pediatrician/Medical Doctor Advance Directives, 07/31/2019 12:00 AM Ad Sima werner Living Will and Medical Power of Pediatrician/Medical Doctor Code Status Date Activated Date Inactivated Comments Full Code 05/07/2019 9:19 PM 05/08/2019 6:12 PM Code Status decision reached by: Patient
--- OUTSIDE RECORDS SUMMARY | 2020-04-10 06:24 | XMS REPORT ---
:1960 Author Organization eClinicalWorks Care Team Providers Name Role Phone Fernando Díaz Provider Role Unavailable Allergies No Known Allergies Problems Problem Type Condition Code Onset Dates Condition Statu s Problem Bipolar disorder F31.9 Active Problem Chronic pain G89.29 Active Problem Thrombocytopenia D69.6 Active Problem Adult BMI 37.0-37.9 kg/sq m Z68.37 Active Problem Incontinence of feces, unspecified R15.9 Active fecal incontinence type Problem Insomnia, unspecified type G47.00 A ctive Problem Depression F32.9 Active Problem Fatigue R53.83 Active Problem Inflammatory bowel disease K52.9 A ctive Problem Anxiety F41.9 Active Problem Seasonal and perennial allergic J30.9 Active rhinitis Problem Restless legs syndrome G25.81 Activ e Problem Kidney stone N20.0 Active Problem Irritable bowel syndrome without K58.9 Active diarrhea Problem Cirrhosis of liver K74.60 Active Medications No Known Medications Results No Known Results Summary Purpose eClinicalWorks Submission
--- OUTSIDE RECORDS SUMMARY | 2020-04-10 06:24 | XMS REPORT | Continuity of Care Document ---
:1960 Author Organization [facility] t Address [address] [place] [address] Care Team Providers Name Role Phone Ping Garcia MD Primary Care Physician Meek Roper MD Attending Clinician Armida GUAJARDO Attending Clinician Unavailable Liz OLMOS Attending Clinician Unavailable Kortney Limon DO Attending Clinician Ting Pierson MD Attending Clinician Rickey Reddy MD Attending Clinician Osorio OLMOS Attending Clinician Unavailable Michelle Rascon Attending Clinician Unavailable Harsh [facility] Attending Clinician Unavailable Rodolfo Soares MA Attending Clinician Unavailable Rodriguez Grubbs MD Attending Clinician Chela FRANKLIN Attending Clinician Matthew Cleveland RN Attending Clinician Unavailable Stephanie GUAJARDO Attending Clinician Unavailable Reena Attending Clinician Unavailable Elham DUBOSE Attending Clinician Unavailable Netta GUAJARDO Attending Clinician Unavailable Bin Bangura MD Attending Clinician Blayne Garcia MD Attending Clinician Abiodun GUAJARDO Attending Clinician Unavailable Marie OLMOS Attending Clinician Unavailable Nafisa Fuchs Attending Clinician Abiodun GUAJARDO Attending Clinician Unavailable Dominic Peralta MD Attending Clinician Kwaku Pearson MD Attending Clinician Kd FRANKLIN Attending Clinician Jackson Attending Clinician Unavailable Altaf FRANKLIN Attending Clinician Pablo RN Attending Clinician Unavailable Suresh Perry MD Attending Clinician Latia FRANKLIN Attending Clinician Jose FRANKLIN SLaurel Attending Clinician Rodger OLMOS Attending Clinician Unavailable AdelereCurry cantu DO Attending Clinician TING PIERSON Admitting Clinician Unavailable CHELA Admitting Clinician Unavailable ROLANDO Admitting Clinician Unavailable LATIA Admitting Clinician Unavailable Payers Payer Name Policy Policy Number Effective Expiration Source Type Date Date MEDICAREMEDICARE PART xxxxxxxxxxx 2015 Gucci Todd AND 00:00:00 [place] xxxxxxxxx 2015 Nikki ston xxxx2014-[facility] 00:00:00 Met dina edzulemaid Problems Condition Condition Condition Status Onset Resolution Last Treating Co mments Source Name Details Category Date Date Treatment Clinician Date Tremor of Tremor of Disease Active Nikki ston unknown unknown 806 Methodi origin origin 00:00: st 00 Weakness Weakness Disease Active [place] generalize generalize 6-08 Me [facility] d d 00:00: st 00 Confusion Confusion Disease Active Nikki ston 3-03 Methodi 00:00: st 00 Acute Acute Disease Active 2018-08 [place] hepatic hepatic 1-05 [facility] encephalop encephalop 00:00: st athy athy 00 Slurred Slurred Disease Active [place] speech speech 9 Methodi 00:00: st 00 CAM (acute CAM (acute Disease Active [facility] kidney kidney 9 Methodi injury) injury) 00:00: st 00 UTI UTI Disease Active [place] (urinary (urinary 903 Method i tract tract 00:00: st infection) infection) 00 Acute Acute Disease Active [place] abdominal abdominal 4-03 Meth erasto pain pain 00:00: st 00 Weakness Weakness Disease Active [place] 1-09 [facility]i 00:00: st 00 Chest pain Chest pain Disease Active H [facility] on on 08-20 Methodi breathing breathing 00:00: st Non-intrac Non-intrac Disease Active [facility] table table 08-20 [facility] vomiting vomiting 00:00: st with with 00 nausea nausea Gastroesop Gastroesop Disease Active [facility] hageal hageal 08-20 Methodi reflux reflux 00:00: st disease disease 00 CAM (acute CAM (acute Disease Active [facility] kidney kidney 08-20 Methodi injury) injury) 00:00: st 00 Disorder Disorder Disease Active [place] of liver of liver 08-20 Method i 00:00: st Liver Liver Disease Active 2017-08 [place] cirrhosis cirrhosis 1-24 Meth erasto 00:00: st 00 Acute Acute Disease Active [place] hepatic hepatic 2-24 Methodi encephalop encephalop 00:00: st athy athy 00 Hematochez Hematochez Disease Active H diana ia ia 5- Methodi 00:00: st 00 Melena Melena Disease Active Overview: [place] 5-02 Added Methodi 00:00: automatic st ally from request for surgery [id number] Bipolar Bipolar Disease Active [place] disorder, disorder, 2-28 Meth erasto unspecifie unspecifie 00:00: st d d 00 Persistent Persistent Disease Active [facility] depressive depressive 2-28 Me [facility] disorder disorder 00:00: st 00 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 2-01 Meth erasto of liver of liver 00:00: st 00 Hepatic Hepatic Disease Active 2015-08 [place] encephalop encephalop 1-15 Me thodi athy athy 00:00: st 00 S/P TIPS S/P TIPS Disease Active [place] (transjugu (transjugu 05-08 Me [facility] lar lar 00:00: st intrahepat intrahepat 00 ic ic portosyste portosyste jacqueline shunt) jacquleine shunt) Thrombocyt Thrombocyt Disease Active H diana openia openia 05-04 Methodi 00:00: st 00 Cirrhosis Cirrhosis Disease Active Nikki ston of liver of liver 05-04 Method i not due to not due to 00:00: st alcohol alcohol 00 Malnutriti Malnutriti Disease Active 2015- [place] on on 05-04 Methodi 00:00: st 00 Kidney Kidney Problem Active [facility] Bipolar Bipolar Problem Active [facility] disorder disorder [facility] Cirrhosis Cirrhosis Problem Active [facility] of liver of liver [facility] Inflammato Inflammato Problem Active [facility] ry bowel ry bowel [facility] - disease disease [facility] Anxiety Anxiety Diagnosis [facility] Incontinen Incontinen Problem Active [facility] ce of ce of [facility] - feces, feces, Memoria unspecifie unspecifie l d fecal d fecal Outpati incontinen incontinen en t ce type ce type Clinics Chronic Chronic Problem Active [facility] pain pain [facility] Thrombocyt Thrombocyt Problem Active [facility] openia openia [facility] Depression Depression Diagnosis [facility] Fatigue Fatigue Problem [facility] Restless Restless Problem Active [facility] legs legs [facility] - syndrome syndrome [facility] a l [facility] Clinics Irritable Irritable Problem Active [facility] bowel bowel [facility] - syndrome syndrome Memori a without without l diarrhea diarrhea Outpat i ent Clinics Seasonal Seasonal Problem Active [facility] and and [facility] - perennial perennial Young yuki allergic allergic l rhinitis rhinitis Outpat i ent Clinics Adult BMI Adult BMI Problem Active [facility] 37.0-37.9 37.0-37.9 Luke s - kg/sq m kg/sq m [facility] Insomnia, Insomnia, Problem Active [facility] unspecifie unspecifie Susanna kes - d type d type [facility] Clinics BMI BMI Problem Active [facility] 40.0-44.9, 40.0-44.9, Susanna kes - adult adult [facility] Migraine Migraine Problem [facility] Gout Gout Problem [facility] History of Past Illness Condition Condition Condition Status Onset Resolution Last Treating Co mments Source Name Details Category Date Date Treatment Clinician Date Confusion Confusion Disease Resolve 2019-09-03 2019-09-03 Hayden d 1-21 00:00:00 11:04:19 Method i 00:00: st 00 Altered Altered Disease Resolve 2019-06-18 2019-06-18 [place] mental mental d 808 00:00:00 12:51:16 Method i status status 00:00: st 00 TIA TIA Disease Resolve 2019-05-08 2019-05-08 [place] (transient (transient d 05-07 00:00:00 11:56:54 Methodi ischemic ischemic 00:00: st attack) attack) 00 Allergies, Adverse Reactions, Alerts Allergy Allergy Status Severity Reaction(s) Onset Inactive Treating Comm ents Source Name Type Date Date Clinician Lactulos Propensi Active GI " I get [place] e ty to Intolerance 02-17 extremely Me thodi adverse 00:00: ill, I st reaction 00 puke and s to pee" drug Ceftriax Propensi Active Itching [place] one ty to 10-06 Methodi adverse 00:00: st reaction 00 s to drug Eggshell Propensi Active Diarrhea Egg yoke [place] Membrane ty to 10-08 Methodi adverse 00:00: st reaction 00 s to drug Prometha Propensi Active Other (See Severe [place] zine ty to Comments) 09-07 confusion Meth erasto adverse 00:00: st reaction 00 s to drug Shellfis Propensi Active Anaphylaxis [place] h ty to 05-05 Methodi Derived adverse 00:00: st reaction 00 s to drug Iodine Propensi Active Anaphylaxis SOB, Nikki ston ty to 9 wheezing, Methodi adverse 00:00: "my st reaction 00 throat s to closes drug up."*pt states cannot have topical nor IV Phenerga Adverse Active Info Not [facility] Reaction Available [facility] Iodine Adverse Active Info Not [facility] Reaction Available [facility] Family History Family Member Diagnosis Comments Start Date Stop Date Source Natural father No Known Problems Nikkizuleyka taylor Sikh Natural mother No Known Problems Nikki taylor Sikh Social History Social Habit Start Date Stop Date Quantity Comments Source Sex Assigned At [place] Sikh Exposure to Not sure [place] SARS-CoV-2 (event) Method ist Cigarettes smoked 2020-03-21 2020-03-21 [place] current (pack per 00:00:00 00:00:[address] day) - Reported Cigarette 2020-03-21 2020-03-21 [place] pack-years 00:00:00 00:00:00 Sikh Alcohol intake 2020-03-21 2020-03-21 Current [place] 00:00:00 00:00:00 non-drinker of Sikh alcohol (finding) History of tobacco 1976-08-12 2018-09-07 Current smoker [place] use 00:00:00 00:00:00 Sikh Tobacco Comment 2016-09-12 2016-09-12 smokes 5 [place] 00:00:00 00:00:00 cigarettes per Sikh day Alcohol Comment 2016-05-02 2016-05-02 Former social [place] 00:00:00 00:00:00 alcohol use, quit Methodi st several years ago; denies history of heavy alcohol use Smoking Status Start Date Stop Date Source Former smoker 2020-03-21 00:00:00 2020-03-21 00:00:00 [place] Sikh Medications Ordered Filled Start Stop Current Ordering Indication Dosage Frequency Signature Comments Components Source Medication Medication Date Date Medication? Clinician (SIG) Name Name cetirizine 2020-0 Yes 10mg QD Take 10 mg [place] (ZyrTEC) 10 8-10 by mouth Meth erasto MG tablet 15:26: every st 03 morning. cyanocobala 2020-0 Yes 1000ug Q30D Inject [place] min 1,000 8-10 1,000 mcg Metho di mcg/mL 15:26: into the st injection 03 shoulder, thigh, or buttocks every 30 (thirty) days. traMADol 2020-0 Yes 50mg Q.5D Take 50 mg Nikki ston (ULTRAM) 50 8-10 by mouth 2 Me th[facility] mg tablet 15:26: (two) st 03 times a day as needed for moderate pain. propranolol 2020-0 Yes 10mg Q.5D Take 10 mg [place] (INDERAL) 8-10 by mouth 2 Meth erasto 10 MG 15:26: (two) st tablet 03 times a day. brexpiprazo 2020-0 2020- No 2mg QD Take 2 mg [place] le 03-19 by mouth Methodi (REXULTI) 2 11:46: 00:[address] mg tablet 54 :00 tablet clonAZEPAM 2020- Yes .5mg Q.5D Take 1 [place] (KlonoPIN) 03-19 tablet Method i 0.5 MG 00:00: 23:59 (0.[address] tablet 00 :00 total) by mouth 2 (two) times a day for 30 days. clonAZEPAM 2019- 2020- No .5mg Q.5D Take 1 [place] (KlonoPIN) 03-19 tablet Method i 0.5 MG 00:00: 00:00 (0.[address] tablet 00 :00 total) by mouth 2 (two) times a day for 30 days. gabapentin 2019- Yes Hypokalemia 600mg QD Take 1 [place] (NEURONTIN) 02-20 tablet Method i 600 mg 00:00: ([address] tablet 00 total) by mouth nightly. With Kidney disease, 1/2 dose is recommende d, may cut 600 mg tablet in half thiamine 2019- No 100mg QD Take 1 [place] 100 MG 02-20 tablet Methodi tablet 00:00: 23:59 ([address] 00 :00 total) by mouth daily for 30 days. sodium 2019- 2020- No 1300mg Q.5D Take 2 [place] bicarbonate 02-20 tablets Meth erasto 650 mg 00:00: 23:59 (1,[address] tablet 00 :00 total) by mouth 2 (two) times a day for 14 days. gabapentin 2020- No Hypokalemia 300mg Q.5D Take 0.5 [place] (NEURONTIN) 02-20 tablets Meth erasto 600 mg 00:00: 00:00 ([address] tablet 00 :00 total) by mouth 2 (two) times a day for 30 days. With Kidney disease, 1/2 dose is recommende d, may cut 600 mg tablet in half pantoprazol 2020- No 40mg QD Take 40 mg [place] e 6-15 06-15 by mouth Methodi (PROTONIX) 11:47: 00:[address] 40 MG EC 55 :00 morning. tablet QUEtiapine 2020- No 200mg QD Take 200 H diana (SEROquel) 6-15 06-15 mg by Methodi 200 MG 11:47: 00:[address] tablet 55 :00 nightly. methylnaltr 2020-0 2020- No 150mg Q24H Take 150 [place] exone 6-15 06-15 mg by Methodi (RELISTOR) 11:47: 00:[address] 150 mg 55 :00 daily as tablet needed (constipat ion). Do not take this medication if you are no longer actively taking Tramadol. riFAXimin 2019-0 2020- No 550mg Q.5D Take 550 [place] (XIFAXAN) 6-15 06-15 mg by Methodi 550 mg 11:47: 00:[address] tablet 55 :00 (two) times a day. senna 2019-0 2020- No 1{tbl} QD Take 1 [place] (SENOKOT) 6-15 06-15 tablet by Meth erasto 8.6 mg 11:47: 00:[address] tablet 55 :00 every morning. spironolact 2019-0 2020- No 100mg QD Take 100 [place] one 6-15 06-15 mg by [facility]i (ALDACTONE) 11:47: 00:[address] 100 MG 55 :00 every tablet morning. ondansetron 2019-0 2020- No 4mg Q4H Take 4 mg [place] ODT 6-15 06-15 by mouth Methodi (ZOFRAN-ODT 11:47: 00:[address] ) 4 MG 55 :00 (four) disintegrat hours as ing tablet needed for nausea or vomiting. topiramate 2019-0 2020- No 50mg QD Take 50 mg [place] (TOPAMAX) 6-15 06-15 by mouth Metho di 25 MG 11:47: 00:[address] tablet 55 :00 magnesium 2019-0 2020- No 400mg QD Take 400 [place] oxide 6-15 06-15 mg by Methodi (MAG-OX) 11:47: 00:[address] 400 mg 55 :00 daily. (241.3 mg magnesium) tablet methylnaltr 2019-0 Yes Hypokalemia 150mg Q24H Take 150 [place] exone 6-15 mg by Methodi (Relistor) 00:00: mouth st 150 mg 00 daily as tablet needed (constipat ion). Do not take this medication if you are no longer actively taking Tramadol. ondansetron 2019-0 Yes Hypokalemia 4mg Q6H Take 1 [place] ODT -15 tablet (4 Methodi (ZOFRAN-ODT 00:00: mg total) s t ) 4 MG 00 by mouth disintegrat every 6 ing tablet (six) hours as needed for nausea or vomiting. SUMAtriptan Yes Hypokalemia 50mg Q24H Take 1 [place] (Imitrex) -15 tablet (50 Meth erasto 50 MG 00:00: mg total) st tablet 00 by mouth daily as needed for migraine for up to 30 doses. May repeat in 2 hours if unresolved . Max dose 200 mg/day furosemide 2020- Yes Hypokalemia 40mg QD Take 1 [place] (LASIX) 40 01-24 tablet (40 Me thodi mg tablet 00:00: 23:59 mg total) st 00 :00 by mouth every morning. lactulose 2020- Yes Hypokalemia 20g Q.[id number] Take 1 [place] (Kristalose 01-24 [id number] packet (20 Methodi ) 20 gram 00:00: 23:59 3D g total) st packet 00 :00 by mouth 3 (three) times a day. zinc 2020- Yes Hypokalemia 220mg Q.5D Take 1 [place] sulfate 01-24 capsule Methodi (ZINCATE) 00:00: 23:59 ([address] 220 (50) mg 00 :00 total) by capsule mouth 2 (two) times a day. spironolact 2020- Yes Hypokalemia 100mg QD Take 1 [place] one 01-24 tablet Methodi (ALDACTONE) 00:00: 23:59 ([address] 100 MG 00 :00 total) by tablet mouth every morning. magnesium 2020- Yes Hypokalemia 400mg QD Take 1 [place] oxide 01-24 tablet Methodi (MAG-OX) 00:00: 23:59 ([address] 400 mg 00 :00 total) by (241.3 mg mouth magnesium) daily. tablet pantoprazol 2020- Yes Hypokalemia 40mg QD Take 1 [place] e 01-24 tablet (40 Methodi (PROTONIX) 00:00: 23:59 mg total) s t 40 MG EC 00 :00 by mouth tablet every morning. senna 2019-2020- Yes Hypokalemia 1{tbl} QD Take 1 [place] (SENOKOT) 01-24 tablet by Meth erasto 8.6 mg 00:00: 23:[address] tablet 00 :00 every morning. riFAXimin 2020- Yes Hypokalemia 550mg Q.5D Take 1 [place] (XIFAXAN) 01-24 tablet Methodi 550 mg 00:00: 23:59 ([address] tablet 00 :00 total) by mouth 2 (two) times a day. famotidine 2019- No Hypokalemia 20mg Take 1 [place] (Pepcid) 20 01-24 tablet (20 M ethodi MG tablet 00:00: 00:00 mg total) st 00 :00 by mouth daily. gabapentin 2020- No Hypokalemia 600mg Q.5D Take 1 [place] (NEURONTIN) 01-24 tablet Metho di 600 mg 00:00: 00:00 ([address] tablet 00 :00 total) by mouth 2 (two) times a day. potassium 2019- No Hepatic 40meq QD Take 2 [place] chloride 01-24 encephalopa tablets Methodi (K-DUR) 20 00:00: 00:00 thy (HCC) ([address] MEQ CR 00 :00 total) by tablet mouth every morning. topiramate 2020- No Hypokalemia 50mg QD Take 2 [place] (TOPAMAX) 01-24 tablets Method i 25 MG 00:00: 23:59 ([address] tablet 00 :00 total) by mouth nightly for 14 days. QUEtiapine 2020- No Hypokalemia 200mg QD Take 1 [place] (SEROquel) 01-24 tablet Method i 200 MG 00:00: 23:59 ([address] tablet 00 :00 total) by mouth nightly for 14 days. escitalopra 2020- No Hypokalemia 10mg QD Take 1 [facility] (LEXAPRO) 01-24 tablet (10 M ethodi 10 MG 00:00: 23:59 mg total) st tablet 00 :00 by mouth daily for 14 days. gabapentin 2019- No 300mg Q.5D Take 300 [place] (NEURONTIN) 6-10 06-10 mg by Method i 300 mg 15:45: 00:[address] capsule 14 :00 (two) times a day. 9am and 2pm gabapentin 2019-2019- No 600mg QD Take 600 [place] (NEURONTIN) 6-10 06-10 mg by Method i 600 mg 12:28: 00:[address] tablet 10 :00 nightly. gabapentin 2019- No 600mg Q.5D Take 1 Nikki ston (NEURONTIN) 6-10 06-15 tablet Metho di 600 mg 00:00: 00:00 ([address] tablet 00 :00 total) by mouth 2 (two) times a day. eszopiclone 2019- No 1mg QD Take 1 mg [place] (LUNESTA) 1 01-10 by mouth Met hodi MG tablet 10:57: 00:[address] 43 :00 Take immediatel y before bedtime eszopiclone 2019- No 1mg QD Take 1 Nikki ston (LUNESTA) 1 01-10-15 tablet (1 Me thodi MG tablet 00:00: 23:59 mg total) st 00 :00 by mouth nightly for 14 days. Take immediatel y before bedtime gabapentin- 2019- No 1{dose} QD 1 Dose [place] lidocaine-m 12-2314 nightly. Met hodi enthoL 09:45: 00:00 st (Active-Pac 22 :00 ) 300-4-1 mg-%-% kit,gel & capsule diphenhydrA 2019- No Take 3 Nikki ston MINE 12-21-12 tablets Methodi (Benadryl 00:00: 00:[address] Allergy) 25 00 :00 before, mg tablet and take 3 tablets the day of famotidine 2019- No 20mg Take 1 [place] (Pepcid) 20 12-21-15 tablet (20 M ethodi MG tablet 00:00: 00:00 mg total) st 00 :00 by mouth daily. predniSONE 2019- No Take 2 [place] (DELTASONE) 12-21 05-15 tablets Meth erasto 20 mg 00:00: 00:[address] tablet 00 :00 before and 2 tablets the morning of test eszopiclone 2020-0 2020- No 2mg QD Take 2 mg [place] (LUNESTA) 2 10-1405 by mouth Met hodi MG tablet 11:12: 00:[address] 25 :00 Take immediatel y before bedtime eszopiclone 2020-0 2020- No 2mg QD Take 1 Nikki ston (LUNESTA) 2 10-14- tablet (2 Me thodi MG tablet 00:00: 23:59 mg total) st 00 :00 by mouth nightly for 30 days. Okay to cut dose in half if full dose not needed hydrocortis 2020-0 2020- No 25mg QD Insert 1 [place] one 10-14 suppositor Methodi (ANUSOL-HC) 00:00: 23:59 y (25 mg s t 25 mg 00 :00 total) suppository into the rectum daily for 6 days. eszopiclone 2020-0 2020- No 2mg QD Take 1 Nikki ston (LUNESTA) 2 10-14 tablet (2 Me thodi MG tablet 00:00: 00:00 mg total) st 00 :00 by mouth nightly for 31 days. Okay to cut dose in half if full dose not needed eszopiclone 2020-0 2020- No 2mg QD Take 2 mg [place] (LUNESTA) 2 09-03 by mouth Met hodi MG tablet 11:33: 00:[address] 51 :00 Take immediatel y before bedtime gabapentin 2019-0 2020- No 600mg Q.[id number] Take 600 [place] (NEURONTIN) 09-03 [id number] mg by Methodi 600 mg 11:33: 00:[address] tablet 51 :00 (three) times a day. gabapentin 2020-0 2020- No 600mg QD Take 1 Nikki ston (NEURONTIN) 09-03 tablet Metho di 600 mg 00:00: 23:59 ([address] tablet 00 :00 total) by mouth nightly for 30 days. gabapentin 2020-0 2020- No 300mg Q.5D Take 1 Nikki ston (NEURONTIN) 09-03 capsule Meth erasto 300 mg 00:00: 23:59 ([address] capsule 00 :00 total) by mouth 2 (two) times a day for 30 days. Breakfast 300 mg, Lunch 300 mg gabapentin- 2019- No 1{appli Q.5D 1 [place] lidocaine-m 09-03 cation} applicatio Methodi enthol 00:00: 23:59 n 2 (two) st 300-4-1 00 :00 times a mg-%-% kit, day for 30 cream and days. capsule Prescripti [facility] eszopiclone No 1mg QD Take 1 Nikki ston (LUNESTA) 1 09-03 tablet (1 Me thodi MG tablet 00:00: 23:59 mg total) st 00 :00 by mouth nightly for 3 days. Take immediatel y before bedtime magnesium 2019- No 400mg QD Take 400 [place] oxide 250 09-01- mg by Methodi mg 18:05: 00:[address] magnesium 44 :00 daily. tablet escitalopra 2018-08- No TAKE 1 Nikki ston m (LEXAPRO) 2-16 -15 TABLET BY Me thodi 10 MG 00:00: 00:[address] tablet 00 :00 EVERY DAY furosemide 2018-08 No 40mg QD Take 40 mg [place] (LASIX) 40 2- 12-10 by mouth Meth erasto mg tablet 15:25: 00:[address] 55 :00 morning. furosemide 2018-08- No Awaiting 40mg QD Take 1 [place] (LASIX) 40 2-10 06-15 liver tablet (40 M ethodi mg tablet 00:00: 00:00 transplant mg total) st 00 :00 by mouth every morning. zinc 2018-08- No Awaiting 220mg Q.5D Take 1 [place] sulfate 2-05 17-15 liver capsule Methodi (ZINCATE) 00:00: 00:00 transplant ([address] 220 (50) mg 00 :00 total) by capsule mouth 2 (two) times a day. BD Disp BD Disp 2018-08 Yes Cece 1 [facility] 2- Karen needle/syr Luke s - 00:00: ing with [facility]oria 00 B12 l injection Outpati ent Clinics Syringe 2-3 Syringe 2-3 2018- Yes Cece [address] [facility] ML ML 2- Karen syringe/ne [facility] - 00:00: edle with [facility] 00 B12 l injection [facility] potassium 2018-08- No 40meq QD Take 40 Nikki ston chloride -12 11-12 mEq by Methodi (K-DUR) 20 15:09: 00:[address] MEQ CR 28 :00 every tablet morning. potassium 2018-08- No Hypokalemia 40meq QD Take 2 [place] chloride 08-23 06-15 tablets Methodi (K-DUR) 20 00:00: 00:00 ([address] MEQ CR 00 :00 total) by tablet mouth every morning. zinc 2018-08- No 220mg QD Take 1 [place] sulfate 08-19-08 capsule Methodi (ZINCATE) 00:00: 23:59 ([address] 220 (50) mg 00 :00 total) by capsule mouth daily for 30 days. May use over the counter Zinc (50 mg) escitalopra 2018-08- No 10mg QD Take 1 Nikkizuleyka taylor m (LEXAPRO) 0 12-14 tablet (10 M ethodi 10 MG 00:00: 00:00 mg total) st tablet 00 :00 by mouth daily for 90 days. lactulose 2018- No 1{packe Q.[id number] Take 1 [place] (KRISTALOSE 04-20- t} [id number] packet by Methodi ) 20 gram 14:19: 00:[address] packet 41 :00 (three) times a day. lactulose 2019- No Hepatic 20g Q.[id number] Take 1 [place] (KRISTALOSE 04-20 06-15 encephalopa [id number] packet (2 0 Methodi ) 20 gram 00:00: 00:00 thy (HCC) 3D g total) st packet 00 :00 by mouth 3 (three) times a day. minocycline 2018-2018- No 100mg Q.5D Take 1 Gucci yang (DYNACIN) 04-14 09-10 tablet Methodi 100 MG 00:00: 23:59 ([address] tablet 00 :00 total) by mouth 2 (two) times a day for 7 days. methylPREDN 2018- No Allergy 32mg QD Take 1 [place] KitLocatealayna 04-10 09- history, tablet (32 M ethodi (MEDROL) 32 00:00: 00:00 radiographi mg total) st MG tablet 00 :00 c dye by mouth daily for 2 doses. diphenhydrA 2018- No Allergy 50mg Take 2 [place] Particle Code 04-10 0903 history, capsules Method i (BENADRYL) 00:00: 00:00 radiographi ([address] 25 mg 00 :00 c dye total) by capsule mouth once for 1 dose. SUMAtriptan 2019- No 50mg Q24H Take 1 Nikki stokorin (IMITREX) 02-13 06-15 tablet (50 Met hodi 50 MG 00:00: 00:00 mg total) st tablet 00 :00 by mouth daily as needed for migraine for up to 1 dose. May repeat in 2 hours if unresolved . Max dose 200 mg/day Albuterol Albuterol Yes Cece [address] [facility] Sulfate HFA Sulfate HFA 09-09 Karen needed [facility] - 00:00: [facility] 00 l Outpati ent Clinics Gabapentin Gabapentin Yes Cece [address] [facility] Karne AM 3 caps [facility] - PM [facility] l [facility] ent [facility]ics Zofran ODT Zofran ODT Yes Cece [address] [facility] Karen on the [facility] - tongue and [facility]oria allow to l dissolve Outpati ent Clinics Seroquel Seroquel Yes Cece [address] Karen [facility] Ultram Ultram Yes [facility] Furosemide Furosemide Yes Cece [address] [facility] Pantoprazol Pantoprazol Yes Cece [address] [facility] Sodium e Sodium Karen [facility] Spironolact Spironolact Yes Cece [address] [facility] one one Karen with food [facility] ProAir HFA ProAir HFA Yes Cece INHALE [address] [facility] Karen PUFFS [facility]ED [facility] EVERY 6 l HOURS Outpati NEEDED FOR ent SHORTNESS Clinics OF BREATH ,COUGH,WHE EZING Folic Acid Folic Acid Yes Cece [address] [facility] Xifaxan Xifaxan Yes Cece [address] [facility] Sumatriptan Sumatriptan Yes Cece TAKE AT [facility] Succinate Succinate Karen ONSET OF [facility]HE. [facility] MAY REPEAT l IN 2 HOURS Outpati IF NO ent RELIEF. Clinics MAXIMUM OF 2 IN 24 HOURS. Indomethaci Indomethaci Yes Cece [address] [facility] Karen with food [facility] or milk [facility] Belsomra Belsomra Yes Cece [address] [facility] at bedtime [facility] Allopurinol Allopurinol Yes Cece [address] [facility] Zinc Zinc Yes Cece TAKE [address] [facility] Sulfate Sulfate Karen CAPSULE [facility] - (220 MG Memoria TOTAL) BY l MOUTH 2 [facility] (TWO) ent TIMES A Clinics DAY. Sodium Sodium Yes Cece TAKE [address] [facility] [address] Bicarbonate Bicarbonate Karen TABLETS BY [facility]TH [facility] TWICE l DAILY FOR [facility] 14 DAYS ent Clinics Topiramate Topiramate Yes Cece TAKE [address] [facility] Karen TABLET BY [facility] AT [facility] BEDTIME l [facility] Rexulti Rexulti Yes Cece [facility]KE [facility] TABLET BY [facility] ON[facility] A DAY l [facility] Immunizations Ordered Immunization Filled Immunization Date Status Commen ts Source Name Name Influenza (IM) 2018-04-21 Completed [place] Preservative Free 00:00:[address] Pneumococcal 2016-05-08 Completed [place] Conjugate 13-Valent 00:00:00 Metho dist FLUCELVAX QUAD PF 2016-05-08 [facility] 00:00:00 Sikh Vital Signs Vital Name Observation Time Observation Value Comments Source Body height 2020-03-21 15:25:00 149.9 cm Catracho Marquez Body weight 2020-03-21 15:25:00 90.719 kg Catracho Marquez BMI 2020-03-21 15:25:00 40.40 kg/m2 Catracho Marquez Systolic blood 2020-03-19 07:51:53 96 mm[Hg] [place] pressure Diastolic blood 2020-03-19 07:51:53 53 mm[Hg] [place] Sikh pressure Heart rate 2020-03-19 07:51:53 66 /min Catracho Marquez Body temperature 2020-03-19 07:51:53 36.06 Georgette Hous ton Sikh Respiratory rate 2020-03-19 07:51:53 18 /min [place] giraldo Sikh Oxygen saturation in 2020-03-19 07:51:53 97 /min Catracho Marquez Arterial blood by Pulse oximetry Procedures Procedure Date / Time Performing Clinician Source Performed HC COMPLETE BLD COUNT 2020-03-19 04:22:00 Baylee Girard Sikh W/AUTO DIFF BASIC METABOLIC PANEL 2020-03-19 04:22:00 Baylee Girard HEPATIC FUNCTION PANEL 2020-03-19 04:22:00 Chad Girard MAGNESIUM LEVEL 2020-03-19 04:22:00 Baylee Girard on Sikh PROTHROMBIN TIME WITH INR 2020-03-19 04:22:00 Flaco Girard Sikh ESTIMATED GFR 2020-03-19 04:22:00 Baylee Girard on Sikh MRI BRAIN WO CONTRAST 2020-03-18 22:27:44 William Velez Sikh URINE CULTURE 2020-03-18 17:00:00 Baylee Girard Sikh URINALYSIS SCREEN AND 2020-03-18 17:00:00 Baylee Girard MICROSCOPY, WITH REFLEX TO CULTURE URINE DRUGS OF ABUSE 2020-03-18 17:00:00 Baylee Girard Sikh SCREEN BASIC METABOLIC PANEL 2020-03-18 00:25:00 Baylee Girard Sikh HEPATIC FUNCTION PANEL 2020-03-18 00:25:00 Chad Girard Sikh MAGNESIUM LEVEL 2020-03-18 00:25:00 Baylee Girard Sikh ESTIMATED GFR 2020-03-18 00:25:00 Baylee Girard on Sikh HC COMPLETE BLD COUNT 2020-03-18 00:10:00 Baylee Girard W/AUTO DIFF PROTHROMBIN TIME WITH INR 2020-03-18 00:10:00 Ting Pierson Flaco fernando Marquez CT HEAD WO CONTRAST 2020-03-17 22:17:12 Baylee Girard LACTIC ACID LEVEL 2020-03-17 22:10:00 Nuszen, Romero Hayden Me thodist LACTIC ACID LEVEL 2020-03-17 20:22:00 Nuszen, Romero aHyden Vt thodist COVID-19 QUALITATIVE PCR 2020-03-17 18:10:00 NuszenRomero AMMONIA LEVEL 2020-03-17 16:40:00 NusRomero fitch odreema URINALYSIS 2020-03-17 16:30:00 NusRomero fitch HC COMPLETE BLD COUNT 2020-03-17 16:30:00 NusRomero fitch W/AUTO DIFF COMPREHENSIVE METABOLIC 2020-03-17 16:30:00 NusRomero fitch PANEL LACTIC ACID, I-STAT 2020-03-17 16:30:00 NusRomero fitch AMYLASE LEVEL 2020-03-17 16:30:00 Romero Limon odreema PROTHROMBIN TIME WITH 2020-03-17 16:30:00 Romero Limon INR, I-STAT ESTIMATED GFR 2020-03-17 16:30:00 Romero Limon IONIZED CALCIUM 2020-03-17 16:30:00 ErlindasRomero fitch ALCOHOL LEVEL, BLOOD 2020-03-17 16:30:00 ErlindasRomero fitch URINE DRUGS OF ABUSE 2020-03-17 16:30:00 Romero Limon SCREEN CV STRESS TEST 2020-03-14 11:40:36 Angela Roper TTE STRESS DOBUTAMINE 2020-03-14 11:40:36 Angela Roper ([id number]) GENERAL SLEEP STUDY 2020-03-11 09:01:00 Barry, Jayasimha [place] Rickey HC COMPLETE BLD COUNT 2020-02-21 05:40:00 Heriberto York on Sikh W/AUTO DIFF BASIC METABOLIC PANEL 2020-02-21 05:40:00 YorkHeriberto silvermant on Sikh HEPATIC FUNCTION PANEL 2020-02-21 05:40:00 Heriberto York ton Sikh MAGNESIUM LEVEL 2020-02-21 05:40:00 Chela Heriberto Hayden Met hodist PHOSPHORUS LEVEL 2020-02-21 05:40:00 YorkHeriberto Me thodist PROTHROMBIN TIME WITH INR 2020-02-21 05:40:00 Heriberto York Sikh ESTIMATED GFR 2020-02-21 05:40:00 Chela Heriberto Hayden Met hodist HC COMPLETE BLD COUNT 2020-02-20 05:47:00 Heriberto York on Sikh W/AUTO DIFF PROTHROMBIN TIME WITH INR 2020-02-20 05:47:00 Heriberto York Sikh BASIC METABOLIC PANEL 2020-02-20 04:00:00 Heriberto York on Sikh HEPATIC FUNCTION PANEL 2020-02-20 04:00:00 Heriberto York Sikh MAGNESIUM LEVEL 2020-02-20 04:00:00 Chela Heriberto Hayden Met hodist PHOSPHORUS LEVEL 2020-02-20 04:00:00 Chela Heriberto Hayden Me thodist ESTIMATED GFR 2020-02-20 04:00:00 ChelaHeriberto Met hodist XR ABDOMEN 1 VW PORTABLE 2020-02-19 18:17:50 Annette Tovar Sikh AMMONIA LEVEL 2020-02-19 13:00:00 Chela Heriberto Hayden Met hodist HC COMPLETE BLD COUNT 2020-02-19 06:08:00 Heriberto York on Sikh W/AUTO DIFF BASIC METABOLIC PANEL 2020-02-19 06:08:00 YorkHeriberto silverman on Sikh HEPATIC FUNCTION PANEL 2020-02-19 06:08:00 YorkHeriberto silverman ton Sikh MAGNESIUM LEVEL 2020-02-19 06:08:00 Heriberto York Met hodist PHOSPHORUS LEVEL 2020-02-19 06:08:00 Heriberto York Me thodist PROTHROMBIN TIME WITH INR 2020-02-19 06:08:00 Heriberto York HEMOGLOBIN A1C 2020-02-19 06:08:00 Heriberto York Met hodist THYROID STIMULATING 2020-02-19 06:08:00 Heriberto York Sikh HORMONE T4 2020-02-19 06:08:00 Heriberto York Met hodist VITAMIN D 25 HYDROXY 2020-02-19 06:08:00 Heriberto Yorkto n Sikh LEVEL ZINC LEVEL, SERUM 2020-02-19 06:08:00 Heriberto York M ethodist ALPHA FETOPROTEIN 2020-02-19 06:08:00 Heriberto York M ethodist ESTIMATED GFR 2020-02-19 06:08:00 Heriberto York Met hodist ALCOHOL LEVEL, BLOOD 2020-02-18 17:21:00 Annette Tovar on Sikh URINE DRUGS OF ABUSE 2020-02-18 16:40:00 Annette Tovar on Sikh SCREEN URINALYSIS 2020-02-18 13:01:00 Danyel Grubbs on Sikh URINE DRUGS OF ABUSE 2020-02-18 13:01:00 Danyel Grubbs SCREEN HC COMPLETE BLD COUNT 2020-02-18 10:00:00 Danyel Grubbs W/AUTO DIFF COMPREHENSIVE METABOLIC 2020-02-18 10:00:00 Danyel Grubbs Sikh PANEL PARTIAL THROMBOPLASTIN 2020-02-18 10:00:00 Danyel Grubbs TIME (PTT) PROTHROMBIN TIME WITH 2020-02-18 10:00:00 Danyel Grubbs INR, I-STAT AMMONIA LEVEL 2020-02-18 10:00:00 Danyel Grubbs on Sikh ESTIMATED GFR 2020-02-18 10:00:00 Danyel Grubbs on Sikh ALCOHOL LEVEL, BLOOD 2020-02-18 10:00:00 Danyel Grubbs Catracho Sikh FERRITIN LEVEL 2020-01-20 12:39:00 DinPierce wallace TOTAL IRON BINDING 2020-01-20 12:39:00 Dinrodrigo, Pierce Hayden M ethodist CAPACITY [place] HC COMPLETE BLD COUNT 2020-01-20 06:00:00 Rolando, Pierce langley Sikh W/AUTO DIFF [place] BASIC METABOLIC PANEL 2020-01-20 06:00:00 Dinakar, Pierce Lopezra HEPATIC FUNCTION PANEL 2020-01-20 06:00:00 Dinrodrigo, Pierce Floyd on Sikh [place] MAGNESIUM LEVEL 2020-01-20 06:00:00 Dinrodrigo, Pierce Cisneros PHOSPHORUS LEVEL 2020-01-20 06:00:00 Dinrodrigo, Pierce Hayden Met dina Cisneros PROTHROMBIN TIME WITH INR 2020-01-20 06:00:00 Pierce Garcia ALPHA FETOPROTEIN 2020-01-20 06:00:00 Annette Tovar ESTIMATED GFR 2020-01-20 06:00:00 Annette Tovar Me thodist URINE DRUGS OF ABUSE 2020-01-19 19:34:00 Annette Tovar Sikh SCREEN DRUG KIM 9, SER/CAROLYN, SCRN 2020-01-19 11:14:00 Calos Garcia W/RFLX TO CONF MISCELLANEOUS REFERRAL 2020-01-19 11:14:00 Calos Garcia TEST OPIATES, S/P, QUANT 2020-01-19 11:14:00 Calos Garcia BLOOD CULTURE, AEROBIC & 2020-01-19 03:00:00 Pierce Garcia ANAEROBIC [place] HC COMPLETE BLD COUNT 2020-01-19 03:00:00 Dinrodrigo, Pierce langley Sikh W/AUTO DIFF [place] BASIC METABOLIC PANEL 2020-01-19 03:00:00 Dinrodrigo, Pierce langley Sikhreema Cisneros HEPATIC FUNCTION PANEL 2020-01-19 03:00:00 DinPierce wallace Sikh [place] MAGNESIUM LEVEL 2020-01-19 03:00:00 Dinakar, Pierce Treviño odreema Cisneros PHOSPHORUS LEVEL 2020-01-19 03:00:00 Dinakar, Pierce Hayden Met dina Cisneros PROTHROMBIN TIME WITH INR 2020-01-19 03:00:00 Dinakar, Pierce [place] Alma Cisneros HEMOGLOBIN A1C 2020-01-19 03:00:00 Dinakar, Pierce Hayden Meth baltazar Cisneros ESTIMATED GFR 2020-01-19 03:00:00 Dinakar, Pierce Cisneros URINALYSIS, AUTOMATED 2020-01-19 02:30:00 Dinakar, Pierce langley Sikh WITH MICROSCOPY [place] PREALBUMIN LEVEL 2020-01-19 02:00:00 Dinakar, Pierce Hayden Met dina Cisneros XR FOOT 3+ VW RIGHT 2020-01-18 21:39:57 Diana Bangura Sikh HC COMPLETE BLD COUNT 2020-01-18 20:56:00 Diana Bangura Sikh W/AUTO DIFF COMPREHENSIVE METABOLIC 2020-01-18 20:56:00 Diana Bangura Sikh PANEL AMYLASE LEVEL 2020-01-18 20:56:00 Diana Bangura MAGNESIUM LEVEL 2020-01-18 20:56:00 Diana Bangura Sikh PHOSPHORUS LEVEL 2020-01-18 20:56:00 Diana Bangura Sikh ESTIMATED GFR 2020-01-18 20:56:00 Diana Bangura Sikh URINALYSIS 2020-01-18 20:25:00 Diana Bangura Sikh BASIC METABOLIC PANEL 2020-01-11 05:40:00 Dinakar, Pierce Cisneros HC COMPLETE BLD COUNT 2020-01-11 05:40:00 Dinakar, Pierce langley Sikh W/AUTO DIFF [place] MAGNESIUM LEVEL 2020-01-11 05:40:00 Dinakar, Pierce Cisneros HEPATIC FUNCTION PANEL 2020-01-11 05:40:00 Dinakar, Pierce Floyd on Sikh [place] PHOSPHORUS LEVEL 2020-01-11 05:40:00 Dinakar, Pierce Hayden Met dina Lopezra PROTHROMBIN TIME WITH INR 2020-01-11 05:40:00 Dinholleyr, Pierce Lopezra ESTIMATED GFR 2020-01-11 05:40:00 Dinholleyr, Pierce Cisneros XR FOOT 2 VW RIGHT 2020-01-10 18:22:30 Dinakar, Pierce Reynolds ethodist [place] MRI BRAIN WO CONTRAST 2020-01-10 17:52:00 Dinakar, Pierce langley Sikh [place] HC COMPLETE BLD COUNT 2020-01-10 05:14:00 Dinakar, Pierce langley Sikh W/AUTO DIFF [place] BASIC METABOLIC PANEL 2020-01-10 05:14:00 Dinakar, Pierce langley Sikh [place] HEPATIC FUNCTION PANEL 2020-01-10 05:14:00 Dinakar, Pierce Floyd on Sikh [place] MAGNESIUM LEVEL 2020-01-10 05:14:00 Dinakar, Peirce Cisneros PHOSPHORUS LEVEL 2020-01-10 05:14:00 Dinakar, Pierce Hayden Met dina Cisneros PROTHROMBIN TIME WITH INR 2020-01-10 05:14:00 Dinakar, Pierce Lopezra ESTIMATED GFR 2020-01-10 05:14:00 Dinrodrigo, Pierce Cisneros URINE CULTURE 2020-01-09 05:30:00 Kayleigh Soares URINALYSIS SCREEN AND 2020-01-09 05:30:00 Kayleigh Soares MICROSCOPY, WITH REFLEX TO CULTURE SODIUM LEVEL, URINE, 2020-01-09 05:30:00 Todd Hall Sikh RANDOM CREATININE LEVEL, URINE, 2020-01-09 05:30:00 Todd Hall Sikh RANDOM HC COMPLETE BLD COUNT 2020-01-09 05:08:00 Dinakar, Pierce langley Sikh W/AUTO DIFF [place] BASIC METABOLIC PANEL 2020-01-09 05:08:00 Dinakar, Pierce langley Sikh [place] HEPATIC FUNCTION PANEL 2020-01-09 05:08:00 DinakarPierce on Sikh [place] MAGNESIUM LEVEL 2020-01-09 05:08:00 Dinakar, Pierce ledesma [place] PHOSPHORUS LEVEL 2020-01-09 05:08:00 Dinakar, Pierce Hayden Met hodreema [place] PROTHROMBIN TIME WITH INR 2020-01-09 05:08:00 Dinakar, Pierce Marquez [place] ESTIMATED GFR 2020-01-09 05:08:00 Dinakar, Pierce Cisneros XR ABDOMEN 1 VW PORTABLE 2020-01-08 18:04:31 Annette Tovar HC COMPLETE BLD COUNT 2020-01-08 06:11:00 Dinakar, Pierce langley Sikh W/AUTO DIFF [place] BASIC METABOLIC PANEL 2020-01-08 06:11:00 Dinakar, Pierce Marquez [place] HEPATIC FUNCTION PANEL 2020-01-08 06:11:00 Dinakar, Pierce galvan Sikh [place] MAGNESIUM LEVEL 2020-01-08 06:11:00 Dinakar, Pierce Treviño odist [place] PHOSPHORUS LEVEL 2020-01-08 06:11:00 Dinakar, Pierce Hayden Met dina Cisneros PROTHROMBIN TIME WITH INR 2020-01-08 06:11:00 Dinakar, Pierce yang Sikhreema Cisneros HEMOGLOBIN A1C 2020-01-08 06:11:00 Dinakar, Pierce ledesma [place] ESTIMATED GFR 2020-01-08 06:11:00 Dinakar, Pierce ledesma [place] BLOOD CULTURE, AEROBIC & 2020-01-08 06:10:00 Dinakar, Pierce taylor Sikh ANAEROBIC [place] BLOOD CULTURE, AEROBIC & 2020-01-07 23:03:00 Dinakar, Pierce taylor Sikh ANAEROBIC [place] URINALYSIS, AUTOMATED 2020-01-07 23:03:00 Dinakar, Pierce langley Sikh WITH MICROSCOPY [place] AMMONIA LEVEL 2020-01-07 15:30:[address] HEAD WO CONTRAST 2020-01-07 15:23:57 Diana Bangura URINALYSIS 2020-01-07 15:00:00 Diana Bangura HC COMPLETE BLD COUNT 2020-01-07 14:45:00 Willem, Diana Bin [place] Sikh W/AUTO DIFF COMPREHENSIVE METABOLIC 2020-01-07 14:45:00 Diana Bangura PANEL LACTIC ACID, I-STAT 2020-01-07 14:45:00 Diana Bangura Sikh AMYLASE LEVEL 2020-01-07 14:45:00 Diana Bangura CREATINE KINASE, TOTAL 2020-01-07 14:45:00 Diana Bangura (CPK) TROPONIN, I-STAT 2020-01-07 14:45:00 Diana Bangura MAGNESIUM LEVEL 2020-01-07 14:45:00 Diana Bangura PHOSPHORUS LEVEL 2020-01-07 14:45:00 Diana Bangura ESTIMATED GFR 2020-01-07 14:45:[address] CARDIAC CALCIUM SCORE 2019-12-25 13:31:34 Gloria Girard HC COMPLETE BLD COUNT 2019-12-25 04:40:00 Dinakar, Pierce langley Sikh W/AUTO DIFF [place] BASIC METABOLIC PANEL 2019-12-25 04:40:00 Dinakar, Pierce langley Sikhreema Cisneros HEPATIC FUNCTION PANEL 2019-12-25 04:40:00 Dinakar, Pierce galvan Sikh [place] MAGNESIUM LEVEL 2019-12-25 04:40:00 Dinakar, Piecre Cisneros PHOSPHORUS LEVEL 2019-12-25 04:40:00 Dinakar, Pierce Cisneros PROTHROMBIN TIME WITH INR 2019-12-25 04:40:00 DinakarPierce ESTIMATED GFR 2019-12-25 04:40:00 Dinholleyr, Pierce Treviño odreema Cisneros VENIPUNC NEED PHYS 2019-12-24 14:11:08 Samanta Ravi ethodist SKILL,DX OR RX URINALYSIS, AUTOMATED 2019-12-24 08:40:00 Dinakar, Pierce Maqruez WITH MICROSCOPY [place] CBC WITH PLATELET AND 2019-12-24 05:20:00 DinakarPierce DIFFERENTIAL [place] PROTHROMBIN TIME WITH INR 2019-12-24 05:20:00 Dinholleyr, Pierce yang Sikh [place] HEMOGLOBIN A1C 2019-12-24 05:20:00 Dinakar, Pierce Treviño odreema [place] BASIC METABOLIC PANEL 2019-12-24 04:00:00 Dinakar, Pierce langley Sikh [place] HEPATIC FUNCTION PANEL 2019-12-24 04:00:00 Dinakar, Pierce Floyd on Sikh [place] MAGNESIUM LEVEL 2019-12-24 04:00:00 Dinakar, Pierce Treviño odist [place] PHOSPHORUS LEVEL 2019-12-24 04:00:00 Dinakar, Pierce Hayden Met dina Cisneros ESTIMATED GFR 2019-12-24 04:00:00 Dinakar, Pierce Lopezra BLOOD CULTURE, AEROBIC & 2019-12-23 17:20:00 Dinakar, Pierce taylor Sikh ANAEROBIC [place] HC COMPLETE BLD COUNT 2019-12-23 17:20:00 Dinakar, Pierce langley Sikh W/AUTO DIFF [place] PROTHROMBIN TIME WITH INR 2019-12-23 17:20:00 Dinakar, Pierce yang Sikh [place] PARTIAL THROMBOPLASTIN 2019-12-23 17:20:00 Dinakar, Pierce Floyd on Sikh TIME (PTT) [place] AMYLASE LEVEL 2019-12-23 16:36:00 Dinakar, Pierce ledesma [place] BASIC METABOLIC PANEL 2019-12-23 16:36:00 Dinakar, Pierce langley Sikh [place] HEPATIC FUNCTION PANEL 2019-12-23 16:36:00 Dinakar, Pierce Floyd on Sikh [place] LIPASE LEVEL 2019-12-23 16:36:00 Dinakar, Pierce ledesma [place] LIPID PANEL 2019-12-23 16:36:00 Dinakar, Pierce Treviño odist [place] MAGNESIUM LEVEL 2019-12-23 16:36:00 Dinakar, Pierce Treviño odist [place] PHOSPHORUS LEVEL 2019-12-23 16:36:00 Dinakar, Pierce Hayden Met dina Cisneros PREALBUMIN LEVEL 2019-12-23 16:36:00 Dinakar, Pierce Hayden Met dina Cisneros ESTIMATED GFR 2019-12-23 16:36:00 Dinakar, Pierce Treviño odist [place] POC CREATININE 2019-12-23 12:28:00 Angela Roper on Sikh ESTIMATED GFR 2019-12-23 12:28:00 Angela Roper on Sikh MRI ABDOMEN W WO CONTRAST 2019-10-15 07:45:00 Annette Tovar Sikh HC COMPLETE BLD COUNT 2019-10-15 05:00:00 Dinakar, Pierce langley Sikh W/AUTO DIFF [place] PROTHROMBIN TIME WITH INR 2019-10-15 05:00:00 Dinakar, Pierce yang Sikh [place] BASIC METABOLIC PANEL 2019-10-15 04:00:00 Dinakar, Pierce langley Sikh [place] HEPATIC FUNCTION PANEL 2019-10-15 04:00:00 Dinakar, Pierce Floyd on Sikh [place] MAGNESIUM LEVEL 2019-10-15 04:00:00 Dinakar, Pierce Treviño odist [place] PHOSPHORUS LEVEL 2019-10-15 04:00:00 Dinakar, Pierce Cisneros ESTIMATED GFR 2019-10-15 04:00:00 Dinakar, Pierce Hayden Meth odist [place] TTE COMPLETE, WO 2019-10-14 15:31:38 Annette Tovar M ethodist CONTRAST, W DOPPLER ([id number]) POTASSIUM LEVEL 2019-10-14 09:27:00 Dinakar, Pierce Hayden Meth odist [place] HEPATIC FUNCTION PANEL 2019-10-14 09:27:00 Dinakar, Pierce Floyd on Sikh [place] HC COMPLETE BLD COUNT 2019-10-14 04:45:00 Dinakar, Pierce langley Sikh W/AUTO DIFF [place] BASIC METABOLIC PANEL 2019-10-14 04:45:00 Dinakar, Pierce langley Sikh [place] HEPATIC FUNCTION PANEL 2019-10-14 04:45:00 Dinakar, Pierce Floyd on Sikh [place] MAGNESIUM LEVEL 2019-10-14 04:45:00 Dinakar, Pierce Hayden Meth odist [place] PHOSPHORUS LEVEL 2019-10-14 04:45:00 Dinakar, Pierce Hayden Met hodist [place] PROTHROMBIN TIME WITH INR 2019-10-14 04:45:00 Dinakar, Pierce Cisneros HEMOGLOBIN A1C 2019-10-14 04:45:00 Dinakar, Pierce Cisneros ESTIMATED GFR 2019-10-14 04:45:00 Dinakar, Pierce Cisneros SMEAR REVIEW 2019-10-14 04:45:00 Dinakar, Pierce Cisneros PROTHROMBIN TIME WITH INR 2019-10-13 09:32:00 Dinakar, Pierce Cisneros HC COMPLETE BLD COUNT 2019-10-13 09:31:00 Dinakar, Pierce Marquez W/AUTO DIFF [place] BASIC METABOLIC PANEL 2019-10-13 08:21:00 Dinakar, Pierce Cisneros HEPATIC FUNCTION PANEL 2019-10-13 08:21:00 Dinakar, Pierce Cisneros MAGNESIUM LEVEL 2019-10-13 08:21:00 Dinakar, Pierce Cisneros PHOSPHORUS LEVEL 2019-10-13 08:21:00 Dinakar, Pierce Hayden Met dina Cisneros ESTIMATED GFR 2019-10-13 08:21:00 Dinakar, Pierce Cisneros PREALBUMIN LEVEL 2019-10-13 08:20:00 Dinakar, Pierce Hayden Met dina Cisneros GROUP A STREP, RAPID 2019-10-13 02:40:00 Fabian, Cheo Marquez ANTIGEN STREP SCREEN CULTURE 2019-10-13 02:40:00 Fabian, Cheo Marquez URINALYSIS 2019-10-13 02:01:00 Fabian, Cheo Marquez CT HEAD WO CONTRAST 2019-10-13 01:40:00 Fabian, Cheo Marquez BLOOD CULTURE, AEROBIC & 2019-10-13 00:10:00 Fabian, Cheo Marquez ANAEROBIC BLOOD CULTURE, AEROBIC & 2019-10-13 00:00:00 Fabian, Cheo Marquze ANAEROBIC XR FOOT 3+ VW LEFT 2019-10-12 23:23:30 Fabian, Cheo Floyd on Sikh XR KNEE 1 OR 2 VW RIGHT 2019-10-12 23:22:45 Cheo Peralta Sikh HC COMPLETE BLD COUNT 2019-10-12 23:00:00 Cheo Peralta Sikh W/AUTO DIFF AMMONIA LEVEL 2019-10-12 22:50:00 Cheo Peralta Sikh COMPREHENSIVE METABOLIC 2019-10-12 22:50:00 FabianCheo rcohe Sikh PANEL HEPATIC FUNCTION PANEL 2019-10-12 22:50:00 FabianCheo roche Sikh ESTIMATED GFR 2019-10-12 22:50:00 FabianCheo roche Sikh COMPREHENSIVE METABOLIC 2019-10-01 15:25:00 ProviderMau PANEL CBC WITH PLATELET AND 2019-10-01 15:25:00 ProviderMau DIFFERENTIAL PROTHROMBIN TIME WITH INR 2019-10-01 15:25:00 ProviderFabian Sikh HC COMPLETE BLD COUNT 2019-09-03 08:00:00 Heriberto York on Sikh W/AUTO DIFF BASIC METABOLIC PANEL 2019-09-03 08:00:00 Heriberto York on Sikh HEPATIC FUNCTION PANEL 2019-09-03 08:00:00 Heriberto York Sikh MAGNESIUM LEVEL 2019-09-03 08:00:00 Heriberto York Met hodist PHOSPHORUS LEVEL 2019-09-03 08:00:00 Heriberto York Me thodist PROTHROMBIN TIME WITH INR 2019-09-03 08:00:00 Heriberto York Sikh ESTIMATED GFR 2019-09-03 08:00:00 Heriberto York Met hodist URINE DRUGS OF ABUSE 2019-09-02 20:25:00 Annette oTvar on Sikh SCREEN US HEPATIC 2019-09-02 18:05:00 Annette Tovar Me thodist AMMONIA LEVEL 2019-09-02 05:53:00 Amari Pearson Sikh HC COMPLETE BLD COUNT 2019-09-02 05:53:00 YorkHeriberto silverman on Sikh W/AUTO DIFF BASIC METABOLIC PANEL 2019-09-02 05:53:00 YorkHeriberto silverman on Sikh HEPATIC FUNCTION PANEL 2019-09-02 05:53:00 YorkHeriberto Alberta giraldo Sikh MAGNESIUM LEVEL 2019-09-02 05:53:00 YorkHeriberto Met hodist PHOSPHORUS LEVEL 2019-09-02 05:53:00 Heriberto York Me thodist PROTHROMBIN TIME WITH INR 2019-09-02 05:53:00 YorkHeriberto Isrrael ortiz Sikh HEMOGLOBIN A1C 2019-09-02 05:53:00 YorkHeriberto Met hodist THYROID STIMULATING 2019-09-02 05:53:00 YorkHeriberto Sikh HORMONE T4 2019-09-02 05:53:00 ChelaHeriberto Met hodist VITAMIN D 25 HYDROXY 2019-09-02 05:53:00 YorkHeribertoalejandrina n Sikh LEVEL ZINC LEVEL, SERUM 2019-09-02 05:53:00 YorkHeriberto ethodist ALPHA FETOPROTEIN 2019-09-02 05:53:00 YorkHeriberto ethodist ESTIMATED GFR 2019-09-02 05:53:00 YorkHeriberto Met hodist AMMONIA LEVEL 2019-09-01 12:52:[address] CERVICAL SPINE WO 2019-09-01 12:11:39 Amari Pearson CONTRAST XR SHOULDER 2+ VW LEFT 2019-09-01 12:11:21 Amari Pearson Sikh XR KNEE 1 OR 2 VW RIGHT 2019-09-01 12:10:[address] HEAD WO CONTRAST 2019-09-01 12:10:03 Amari Pearson Sikh URINALYSIS 2019-09-01 11:45:00 Amari Pearson COMPREHENSIVE METABOLIC 2019-09-01 11:33:00 Amari Pearson PANEL HC COMPLETE BLD COUNT 2019-09-01 11:33:00 Amari Pearson W/AUTO DIFF PROTHROMBIN TIME WITH 2019-09-01 11:33:00 Amari Pearson INR, I-STAT ESTIMATED GFR 2019-09-01 11:33:00 Lili Amarinafisa Hayden Sikh HC COMPLETE BLD COUNT 2019-06-18 04:50:00 Baylee Girard Sikh W/AUTO DIFF BASIC METABOLIC PANEL 2019-06-18 04:50:00 Baylee Girard HEPATIC FUNCTION PANEL 2019-06-18 04:50:00 Chad Girard Sikh MAGNESIUM LEVEL 2019-06-18 04:50:00 Baylee Girard on Sikh PHOSPHORUS LEVEL 2019-06-18 04:50:00 Baylee Girard Sikh PROTHROMBIN TIME WITH INR 2019-06-18 04:50:00 Flaco Girard Sikh ALPHA FETOPROTEIN 2019-06-18 04:50:00 Heriberto [place] ethodist THYROID STIMULATING 2019-06-18 04:50:00 Heriberto [place] Sikh HORMONE ZINC LEVEL, SERUM 2019-06-18 04:50:00 Heriberto [place] ethodist T4, FREE 2019-06-18 04:50:00 Heriberto [place] [facility] AMMONIA LEVEL 2019-06-18 04:50:00 Heriberto [place] [facility] ESTIMATED GFR 2019-06-18 04:50:00 Heriberto [place] [facility] C-REACTIVE PROTEIN 2019-06-18 04:50:00 Heriberto [place] Sikh URINE CULTURE 2019-06-17 20:44:00 Heriberto [place] [facility] GRAM STAIN 2019-06-17 20:44:00 Heriberto [place] [facility] HC COMPLETE BLD COUNT 2019-06-17 06:25:00 Baylee Girard W/AUTO DIFF PROTHROMBIN TIME WITH INR 2019-06-17 06:25:00 Flaco Girard Sikh BASIC METABOLIC PANEL 2019-06-17 04:00:00 Baylee Girard Sikh HEPATIC FUNCTION PANEL 2019-06-17 04:00:00 Chad Girard Sikh MAGNESIUM LEVEL 2019-06-17 04:00:00 Baylee Girard on Sikh PHOSPHORUS LEVEL 2019-06-17 04:00:00 Baylee Girard Sikh ESTIMATED GFR 2019-06-17 04:00:00 Baylee Girard on Sikh LACTIC ACID, I-STAT 2019-06-16 12:22:00 Baylee Girard BLOOD CULTURE, AEROBIC & 2019-06-16 11:13:00 Gloria Girard ANAEROBIC CBC WITH PLATELET AND 2019-06-16 09:45:00 Denisse Solitario n Sikh DIFFERENTIAL COMPREHENSIVE METABOLIC 2019-06-16 09:45:00 Denisse Solitario Sikh PANEL LACTIC ACID, I-STAT 2019-06-16 09:45:00 Baylee Girard Sikh AMMONIA LEVEL 2019-06-16 09:45:00 Denisse Solitario Meth odist ESTIMATED GFR 2019-06-16 09:45:00 Denisse Solitario Meth odist MANUAL DIFFERENTIAL 2019-06-16 09:45:00 Denisse Solitario TTE COMPLETE, WO 2019-05-08 08:00:00 Emanuel Call CONTRAST, W DOPPLER Imarendenewe ([id number]) LIPID PANEL 2019-05-08 04:00:00 Emanuel Call ethodist Imarendenewe COMPREHENSIVE METABOLIC 2019-05-08 04:00:00 Emanuel Call Sikh PANEL Imarendenewe ESTIMATED GFR 2019-05-08 04:00:00 Emanuel Call ethodist Imarendenewe HC COMPLETE BLD COUNT 2019-05-08 03:30:00 Emanuel Call Sikh W/AUTO DIFF Imarendenewe CT ABDOMEN PELVIS WO 2019-05-07 17:25:30 Tapan Perry CONTRAST Suresh CT HEAD WO CONTRAST 2019-05-07 17:24:06 Tapan Perry Suresh URINE CULTURE 2019-05-07 16:19:00 Tapan Perryn GRAM STAIN 2019-05-07 16:19:00 Tapan Perry Suresh URINALYSIS 2019-05-07 16:19:00 Tapan Perry URINE DRUGS OF ABUSE 2019-05-07 16:19:00 Tapan Perry SCREEN Suresh HC COMPLETE BLD COUNT 2019-05-07 16:10:00 Tapan Perry W/AUTO DIFF Suresh COMPREHENSIVE METABOLIC 2019-05-07 16:10:00 Stevenson Perry PANEL Suresh PROTHROMBIN TIME WITH 2019-05-07 16:10:00 Tapan Perry INR, I-STAT Suresh TROPONIN, I-STAT 2019-05-07 16:10:00 Tapan Perry Suresh B NATRIURETIC PEP, I-STAT 2019-05-07 16:10:00 Sadi Perry Suresh AMMONIA LEVEL 2019-05-07 16:10:00 Tapan Perry Suresh ALCOHOL LEVEL, BLOOD 2019-05-07 16:10:00 Tapan Perry Suresh ESTIMATED GFR 2019-05-07 16:10:00 Tapan Perry Suresh ECG 12-LEAD 2019-05-07 15:54:43 Tapan Perryn MRI ABDOMEN W WO CONTRAST 2019-04-23 17:10:00 Calos Garcia TTE COMPLETE, WO 2019-04-23 15:34:27 Angela Roper CONTRAST, W DOPPLER ([id number]) BASIC METABOLIC PANEL 2019-04-23 13:01:00 Calos Garcia HEPATIC FUNCTION PANEL 2019-04-23 13:01:00 Calos Garcia PROTHROMBIN TIME WITH INR 2019-04-23 13:01:00 Calos Garcia PARTIAL THROMBOPLASTIN 2019-04-23 13:01:00 Galati, Calos S. Nikki ston Sikh TIME (PTT) HC COMPLETE BLD COUNT 2019-04-23 13:01:00 Calos Garcia Sikh W/AUTO DIFF MAGNESIUM LEVEL 2019-04-23 13:01:00 Calos Garcia Vt thodist PHOSPHORUS LEVEL 2019-04-23 13:01:00 Calos Garcia M ethodist ESTIMATED GFR 2019-04-23 13:01:00 Calos Garcia Vt thodist HC COMPLETE BLD COUNT 2019-04-14 06:05:00 Dinakar, Pierce langley Sikh W/AUTO DIFF Bl[place]ne BASIC METABOLIC PANEL 2019-04-14 06:05:00 DinakarPierce Sikh [place] HEPATIC FUNCTION PANEL 2019-04-14 06:05:00 DinakarPierce on Sikh Blayne MAGNESIUM LEVEL 2019-04-14 06:05:00 DinakarPierce Meth odist [place] PHOSPHORUS LEVEL 2019-04-14 06:05:00 Dinakar, Pierce Hayden Met hodreema Cisneros PROTHROMBIN TIME WITH INR 2019-04-14 06:05:00 DinakarPierce Sikh [place] ESTIMATED GFR 2019-04-14 06:05:00 Dinakar, Pierce Hayden Meth odist Bl[place] HC COMPLETE BLD COUNT 2019-04-13 03:58:00 DinakarPierce Sikh W/AUTO DIFF [place] BASIC METABOLIC PANEL 2019-04-13 03:58:00 DinakarPierce Sikh [place] HEPATIC FUNCTION PANEL 2019-04-13 03:58:00 DinakarPierce on Sikh [place]ne MAGNESIUM LEVEL 2019-04-13 03:58:00 DinakarPierce Meth odist [place] PHOSPHORUS LEVEL 2019-04-13 03:58:00 Dinakar, Pierce Hayden Met hodist [place] PROTHROMBIN TIME WITH INR 2019-04-13 03:58:00 DinakarPierce Sikh [place] ESTIMATED GFR 2019-04-13 03:58:00 DinakarPierce Meth odist [place] XR ABDOMEN 1 VW PORTABLE 2019-04-12 12:13:53 DinakarPierce Sikh Blayne HC COMPLETE BLD COUNT 2019-04-12 05:49:00 Dinakar, Pierce langley Sikh W/AUTO DIFF [place] BASIC METABOLIC PANEL 2019-04-12 05:49:00 DinakarPierce HEPATIC FUNCTION PANEL 2019-04-12 05:49:00 DinakarPierce on Sikh [place]ne MAGNESIUM LEVEL 2019-04-12 05:49:00 Dinakar, Pierce Treviño odreema [place] PHOSPHORUS LEVEL 2019-04-12 05:49:00 Dinakar, Pierce Hayden Met hodreema Blayne PROTHROMBIN TIME WITH INR 2019-04-12 05:49:00 DinakarPierce HEMOGLOBIN A1C 2019-04-12 05:49:00 Dinakar, Pierce Cisneros ESTIMATED GFR 2019-04-12 05:49:00 Dinakar, Pierce Treviño odreema [place] AMMONIA LEVEL 2019-04-12 05:49:00 Dinakar, Pierce Treviño odreema [place] PREALBUMIN LEVEL 2019-04-12 05:49:00 Dinakar, Pierce dyereema Bl[place] XR CHEST 1 VW PORTABLE 2019-04-11 21:40:43 Re[employer]Freedom INFLUENZA ANTIGEN TEST, 2019-04-11 21:12:00 RehreFreedom cantu REFLEX NEGATIVE TO RPP RESPIRATORY PATHOGEN 2019-04-11 21:12:00 AdelereFreedom cantu Sikh PANEL URINE CULTURE 2019-04-11 20:55:00 Freedom Gutierrez GRAM STAIN 2019-04-11 20:55:00 RehreFreedom cantu URINALYSIS 2019-04-11 20:55:00 Freedom Gutierrez BLOOD CULTURE, AEROBIC & 2019-04-11 20:40:00 RehFreedom beth ANAEROBIC BLOOD CULTURE, AEROBIC & 2019-04-11 20:25:00 Freedom Gutierrez ANAEROBIC HC COMPLETE BLD COUNT 2019-04-11 20:25:00 RehFreedom beth W/AUTO DIFF PROTHROMBIN TIME WITH 2019-04-11 20:25:00 Rehrer, Freedom coombskristal Sikh INR, I-STAT COMPREHENSIVE METABOLIC 2019-04-11 20:25:00 RehrerFreedom PANEL LACTIC ACID, I-STAT 2019-04-11 20:25:00 RehrerFreedom VENOUS BLOOD GAS 2019-04-11 20:25:00 Rehrer, Freedom Marquez AMMONIA LEVEL 2019-04-11 20:25:00 Rehrer, Freedom Marquez CREATINE KINASE, TOTAL 2019-04-11 20:25:00 Rehrer, Freedom Marquez (CPK) LIPASE LEVEL 2019-04-11 20:25:00 RehrerFreedom PHOSPHORUS LEVEL 2019-04-11 20:25:00 Rehrer, Freedom Marquez MAGNESIUM LEVEL 2019-04-11 20:25:00 Rehrer, Freedom Marquez ESTIMATED GFR 2019-04-11 20:25:00 RehrerFreedom Plan of Care Planned Activity Planned Date Details Comments Source Future Scheduled 2020-05-12 INFLUENZA VACCINE [place] [facility] Test 00:00:00 [code = INFLUENZA VACCINE] Future Scheduled 2019-10-08 Screening for [place] [facility] Test 00:00:00 malignant neoplasm of cervix (procedure) [code = 676874281] Future Scheduled 2018-10-17 BREAST CANCER [place] [facility] Test 00:00:00 SCREENING [code = BREAST CANCER SCREENING] Future Scheduled 2011 COLONOSCOPY SCREENING Gucci yang Sikh Test 00:00:00 [code = COLONOSCOPY SCREENING] Future Scheduled 2011 SHINGLES VACCINES [place] Sikh Test 00:00:00 (#1) [code = SHINGLES VACCINES (#1)] Encounters Start End Encounter Admission Attending Care Care Encounter Source Date/Time Date/Time Type Type Clinicians Facility Department ID 2020-04-05 2020-04-05 Outpatient Irma Galvez [id number] [facility] 09:10:00 09:10:00 [facility] 2020-04-04 2020-04-04 Outpatient Irma Galvez [id number] 10:58:00 10:58:[address] [address] - Drive [facility] Medicine l Medicine Outpati ent Clinics 2020-04-04 2020-04-04 [facility] [id number] 10:00:00 10:00:[address] [address] Luke [address] - Drive [facility] l Medicine Outpati ent Clinics 2020-03-17 2020-03-19 Inpatient TING [facility] [id number] [place] 00:00:00 00:00:00 Ben PIERSON Method i [address] [facility] 2020-03-16 2020-03-16 [facility] [id number] 11:12:00 11:12:00 t [place] [employer] [facility] - Drive [facility] l Medicine Outpati ent Clinics 2020-03-14 2020-03-14 Outpatient JACQUELIN [facility] [id number] [place] 00:00:00 00:00:00 AHMED [address] 2020-03-10 2020-03-10 [facility] [id number] 13:18:00 13:18:00 [place] [employer] s - Drive [facility] Medicine l Medicine Outpati ent Clinics 2020-03-07 2020-03-07 [facility] [id number] 16:07:00 16:07:00 [place] [employer] s - Drive [facility] Medicine l Medicine Outpati ent Clinics 2020-03-04 2020-03-04 [facility] [id number] 11:00:00 11:00:00 t [place] [employer] s - Drive [facility] Medicine l Medicine Outpati ent Clinics 2020-03-04 2020-03-04 [facility] [id number] 11:00:00 11:00:00 [place] [employer] s - Drive [facility] l Medicine Outpati ent Clinics 2020-03-04 2020-03-04 Outpatient BARRY, [facility] [id number] [place] 00:00:00 00:00:00 RA [address] 2020-02-18 2020-02-21 Inpatient CHELA, [facility] [id number] [place] 00:00:00 00:00:00 HERIBERTO [address] 2020-01-18 2020-01-20 Inpatient DINAKAR, [facility] [id number] [place] 00:00:00 00:00:00 PIERCE 881 Method i 2020-01-07 2020-01-11 Inpatient YORK, [facility] [id number] [place] 00:00:00 00:00:00 HERIBERTO 087 Method i 2019-12-29 2019-12-29 [facility] [id number] 07:03:00 07:03:00 t [employer] [facility] 2019-12-23 2019-12-25 Inpatient TING [facility] [id number] [place] 00:00:00 00:00:00 PIERSON, 540 Method i BAYLEE 2019-12-23 2019-12-23 Outpatient JACQUELIN, [facility] [id number] [place] 00:00:00 00:00:00 AHMED 960 Method i 2019-12-22 2019-12-22 Office [facility] [id number] 14:08:03 14:56:41 Visit [facility] [id number] Surgical [id number] Specialti [id number] es 198 [place] 2019-10-12 2019-10-15 Inpatient CHELA, [facility] [id number] [place] 00:00:00 00:00:00 HERIBERTO 906 Method i 2019-09-01 2019-09-03 Inpatient YORK, [facility] [id number] [place] 00:00:00 00:00:00 HERIBERTO 637 Method i 2019-07-20 2019-07-20 [facility] [id number] 14:02:00 14:02:00 t [employer] s [employer] [facility] Medicine Outpati ent Clinics 2019-07-16 2019-07-16 [facility] [id number] [facility] 13:15:00 13:15:00 t [employer] 24[employer] s - Drive [facility] Medicine Outpati ent Clinics 2019-06-16 2019-06-18 Inpatient YORK, [facility] [id number] [place] 00:00:00 00:00:00 HERIBERTO [address] 2019-05-07 2019-05-08 Outpatient YOVANY TAVERAS [facility] [id number] [place] 00:00:00 00:00:[address] 2019-04-23 2019-04-23 Outpatient JOSE, [facility] [id number] [place] 00:00:00 00:00:00 CALOS [address] 2019-04-23 2019-04-23 Outpatient JACQUELIN, [facility] [id number] [place] 00:00:00 00:00:00 AHMED [address] 2019-04-15 2019-04-15 [facility] [id number] 14:19:00 14:19:00 t echoecho [facility] Medicine Outpati ent Clinics 2019-04-09 2019-04-09 [facility] [id number] 14:00:00 14:00:00 t [employer] s - [employer] [facility] Medicine Outpati ent Clinics 2018-09-09 2018-09-09 [facility] [id number] [address] 14:45:00 14:45:00 t [place] [employer] s - [employer] [facility] Medicine Outpati ent Clinics 2018-04-15 2018-04-15 [facility] [id number] [facility] 12:02:00 12:02:00 t [employer] s - [employer] [facility] Medicine Medicine Outpati ent Clinics 2018-02-19 2018-02-19 [facility] [id number] 15:08:00 15:08:00 t [employer] 24[employer] s [employer] [facility] Medicine Medicine Outpati ent Clinics 2018-01-24 2018-01-24 [facility] [id number] 11:15:00 11:15:00 t echoe[employer] [facility] Medicine Outpati ent Clinics Results Test Description Test Time Test Comments Results Result Comments Source Basic metabolic panel 2020-03-19 07:18:12 Test Item Value Reference Range Interpretation Comme nts Sodium (test code = 2951-2) 143 135- 148 mEq/L Potassium (test code = 2823-3) 3.4 3.5- 5.0 mEq/L L Chloride (test code = 2075-0) 104 98- 112 mEq/L CO2 (test code = 2027-9) 22 24- 31 mEq/L L Anion gap (test code = 14886-5) 17@ANIO 7- 15 mEq/L H BUN (test code = 3094-0) 9 mg/dL 6-20 Creatinine (test code = 2160-0) 1.27 mg/dL 0.5-0.9 H Glucose (test code = 2345-7) 151 mg/dL 65-99 H Calcium (test code = 96594-9) 9.0 mg/dL 8.3-10.2 Lab Interpretation (test code = 25383-6) Abnormal [place] MethodistHepatic function [id number] 07:18:12 Test Item Value Reference Range Interpretation Comments Albumin (test code = 3.2 g/dL 3.5-5 L 1750-7) Total bilirubin (test 1.1 mg/dL 0-1.2 code = 1974-09) Bilirubin direct (test <0.2 0-0.3 code = 1968-02) Alkaline phosphatase 75 U/L 35-104 (test code = 6768-6) Protein (test code = 6.0 g/dL 6.3-8.3 L -[place] n 2885-2) 4.6-7.0 g /dL1 week 4.4-7.6 g/dL 7 months-1year 5.1-7.3 g/dL 1-2 years 5.6-7.5 g/dL>3 years 6.0-8.0 g/jI08-486 6.3-8. 3 g/dL ALT (test code = 1742-6) 20 U/L 5-50 AST (test code = 1920-8) 30 U/L 10-35 Lab Interpretation (test Abnormal code = 08365-6) [place] MethodistMagnesium [id number] 07:18:12 Test Item Value Reference Range Interpretation Comments Magnesium (test code = 21010-2) 1.7 mg/dL 1.6-2.6 [place] MethodistEstimated [id number] 07:18:12 Test Item Value Reference Range Interpretation Comments Estimated GFR (test 46 mL/min/1.73 m2 Perez granados Units code = 5488) InterpretationG 1 >=90 Alee l or highG2 60-89 Mildly decrease dG3a 45-59 Mil dly to moderately decr svcwaX9s 30-44 Moderately to s everely decreasedG4 15-29 Severe ly decreasedG5 <15 Kidney betsy lureThe eGFR was calcul ated using the Chron Kidney Disease Epidemiology Collaboration ( CKD-EPI) equation. Interpretation is based on recommendati ons of the National [facility]-Kidn ey Disease Outcome s Quality Initiat chago (NKF-KDOQI) [facility] 2013. Lab Interpretation Abnormal (test code = 81447-5) [place] MethodistProthrombin time with [id number] 06:33:30 Test Item Value Reference Range Interpretation Comments Prothrombin time (test 17.3 11.5- 14.5 sec H code = 5902-2) INR (test code = 1.4 The Interna tiformerly [facility] 39318-2) Normalized Rati o (INR) is a therapeuti c monitoring tool for patients who ar e stable on oral anticoagulant t herapy. An INR of 2.0-3 .0 is suggested for d eep vein thrombosis/pulm onary embolism. Lab Interpretation Abnormal (test code = 87680-5) Cat[place]acho MethodistCBC with platelet and rfbmxlgsjysh9508-50-06 06:11:09 Test Item Value Reference Range Interpretation Comments WBC (test code = 03832-6) 6.03 4.50- 11.00 k/uL RBC (test code = 47034-0) 3.50 m/uL 4.2-5.5 L HGB (test code = 718-7) 10.1 g/dL 12-16 L HCT (test code = 4544-3) 31.7 % 37-47 L MCV (test code = 787-2) 90.6 fL 82-100 MCH (test code = 785-6) 28.9 pg 27-34 MCHC (test code = 786-4) 31.9 g/dL 31-37 RDW - SD (test code = 52.4 fL 37-55 90561-2) MPV (test code = 47810-4) 12.3 fL 8.8-13.2 Platelet count (test code 84 150- 400 k/uL L = 02804-5) Nucleated RBC (test code 0.00 /100 WBC = 83626-1) Neutrophils (test code = 61.1 % 39-69 68761-7) Lymphocytes (test code = 24.0 % 25-45 L 40852-3) Monocytes (test code = 10.1 % 0-10 H 02786-2) Eosinophils (test code = 3.5 % 0-5 97247-9) Basophils (test code = 1.0 % 0-1 38220-8) Immature granulocytes 0.3 % 0-1 "Immat ure (test code = 14150-0) granul ocytes" (promyelocytes, myelocytes, metamyelocytes) Lab Interpretation (test Abnormal code = 72430-1) Hayden MethodistUrinalysis screen and microscopy, with reflex to culture 2020-03-18 22:48:29 Test Item Value Reference Range Interpretation Comments Specimen site (test code = Clean catch 6991894) Color, UA (test code = 5778-6) Straw Appearance, UA (test code = Clear 5767-9) Specific gravity, UA (test code = 1.006 1.001-1.035 5811-5) pH, UA (test code = 5803-2) 6.0 5.0-8.5 Protein, UA (test code = 63541-1) Negative Negative Glucose, UA (test code = 45698-9) Negative Negative Ketones, UA (test code = 2514-8) Negative Negative Bilirubin, UA (test code = Negative Negative 5770-3) Blood, UA (test code = 5794-3) Negative Negative Nitrite, UA (test code = 5802-4) Negative Negative Urobilinogen, UA (test code = <2.0 <2.0 63230-5) Leukocyte esterase, UA (test code Negative Negative = 5799-2) Epithelial cells, UA (test code = 2 /HPF 5787-7) WBC, UA (test code = 5821-4) <1 0- 4 /HPF RBC, UA (test code = 92897-7) None seen 0- 5 /HPF Bacteria, UA (test code = Few None seen 70787-0) Yeast, UA (test code = 89638-6) None seen Yeast with pseudohyphae, UA (test None seen code = 03128-4) [facility] Brain Wo [id number] 22:35:58Hm Interface, Radiology Results 03/18/2020 10:39 PM CDTEXAMINATION: MRI BRAIN WO CONTRASTC LINICAL HISTORY: tremorsCOMPARISON: MRI brain 01/10/2020.TECHNIQUE: Multiplanar and multisequence MRI imaging of the brain was obtained without contrast.FINDINGS:No significant T2/T2 FLAIR signal abnormalities identified. There is symmetric intrinsic T1 hyperintense signal throughout the globus pallidus bilaterally, image 14 of series 7, likely reflecting sequela related to cirrhosis.No territorial restricted diffusion identified to indicate recent infarct. No intra or extra-axial fluid collections identified. No mass, mass effect, or midline shift is seen. The thalami, midbrain, janette and cervicomed ullary junction are unremarkable. The ventricles and sulci are unremarkable for patient's age. Sella turcica is normal in appearance. The basal cisterns are patent. The calvarium appears intact. The major intracranial vascular flow voids are present. The orbital contents are symmetric and unremarkable. Large mucous retention cyst is noted within the right maxilla sinus. The remaining paranasal sinuses are unremarkable. The mastoid air cells and middle ear cavities are clear.IMPRESSION:No acute intracranial abnormality identified.[facility]-[id number] Catracho MarquezUrine [id number] 20:31:12 Test Item Value Reference Range Interpretation Comments Urine culture (test SEE COMMENT Bacteriu yuki screen code = 7662504) negative. [place] [facility] drugs of abuse [id number] 20:03:08 Test Item Value Reference Interpretation Comments Range Amphetamine screen, Negative urine (test code = 3349-8) Barbiturate screen, Negative urine (test code = 3377-9) Benzodiazepine Negative screen, urine (test code = 3390-2) Cocaine screen, Negative urine (test code = 3397-7) Methadone Negative metabolite (EDDP), urine (test code = 46148-5) Opiates screen, Negative urine (test code = 3879-4) Oxycodone screen, Negative urine (test code = 65959-5) Phencyclidine Negative screen, urine (test code = 3936-2) Tricyclic screen, Negative urine (test code = 61688-0) Cannabinoid screen, Negative Drug scr een minimum urine (test code = concentra tion of 3427-2) detectabilityAm phetamines 1000 ng/mLBarbiturat es 200 ng/mLBe nzodiazepines 300 ng/mLCocaine 300 ng/mLMethadone 300 ng/mLOp iates 300 ng/mLOxycodone 300 ng/mLPh encyclidine 25 ng/mLCannabinoi ds 50 ng/mLTr icyclics 1000 ng/mLResults are from screen ing tests and should only be used for medical evaluat ion. Drug testing for leg al purposes requires defini tive (or confirmatory) t esting methods, which are available upon request. C ontact the laboratory if d efinitive testing is requ ired. [place] MethodistCOVID-19 qualitative [id number] 04:14:16 Test Item Value Reference Range Interpretation Comments Interpretation (test Negative results do code = 8168630) not preclude 2019-nCoV infection and should not be used as the sole basis for treatment or other patient management decisions. Negative results must be combined with clinical observations, patient history, and epidemiological information. COVID-19 qualitative Not-Detected Not-Detected PCR result (test code = 32466-3) COVID-19 qualitative See link below for C ase Number: PCR (test code = PDF Lab Report [id number]) [place] MethodistLactic acid [id number] 00:53:25 Test Item Value Reference Range Interpretation Comments Lactic acid (test code = 20741-3) 1.9 mmol/L 0.5-2.2 [facility] Head Wo [id number] 22:19:41Hm Interface, Radiology Results - 03/17/2020 10:22 PM CDTEXAMINATION: CT HEAD WO CONTRASTCL INICAL HISTORY: tremorsCOMPARISON: CT head 01/07/2020.TECHNIQUE: Noncontrast head CT performed using radiation dose reduction techniques. Technical factors are evaluated and adjusted to ensure appropriate moderation of exposure. Automated dose management technology is applied to adjust radiation exposure while achieving a diagnostic quality image. FINDINGS:No significant interval change appearingsince the prior CT from 01/07/2020. No acute intra or extra-axial hemorrhage identified. The gomez-white matter differentiation is preserved. The basal ganglia, thalami, midbrain, ajnette and cervicomedullary junction are unremarkable. No mass, mass effect, or midline shift is seen. Ventricles and sulci are normal in appearance for patient's age. Basal cisterns are patent. Calvarium is intact.The orbitalcontents are symmetric and normal in appearance. Moderate mucous retention cyst is noted within the right maxillary sinus. The remaining paranasal sinuses are unremarkable. The mastoid air cells and middle ear cavities are clear. Scalp soft tissues are unremarkable.IMPRESSION:No acute intracranial abnormality identified.[facility]-[id number] MethodistIonized [id number] 19:42:14 Test Item Value Reference Range Interpretation Comments pH (test code = 2753-2) 7.37 Ionized calcium (test code = 1.08 mmol/L 1.11-1.32 L ) Lab Interpretation (test code = Abnormal 00730-6) [place] MethodistAmmonia [id number] 19:37:36 Test Item Value Reference Range Interpretation Comments Ammonia (test code = 1841-6) 92 umol/L 11-51 H Lab Interpretation (test code = Abnormal 01227-1) [place] MethodistAlcohol level, [id number] 19:18:45 Test Item Value Reference Range Interpretation Comments Alcohol percent None Detected % Normal (test code = None Detec tedLegal 5643-2) Intoxication in [place] 80 mg/dL (0.08% ) - Whole BloodToxi c Concentration 200 mg/dL (0.2%)Potential ly Fatal 350 - 500 mg/dL (0.35 - 0 .5%) [place] MethodistAmylase [id number] 17:07:38 Test Item Value Reference Range Interpretation Comments Amylase (test code = 1798-8) 78 U/L 14-97 [place] MethodistComprehensive metabolic [id number] 16:58:42 Test Item Value Reference Range Interpretation Comments Sodium (test code = 2951-2) 137 128- 145 mEq/L Potassium (test code = 2823-3) 3.8 3.6- 5.1 mEq/L CO2 (test code = 2027-9) 23 18- 33 mEq/L Chloride (test code = 2075-0) 110 98- 108 mEq/L H Glucose (test code = 2345-7) 156 mg/dL 73-118 H Calcium (test code = 36527-4) 9.0 mg/dL 8-10.3 BUN (test code = 3094-0) 11 mg/dL 7-22 Creatinine (test code = 2160-0) 1.4 mg/dL 0.5-0.9 H Alkaline phosphatase (test code = 86 U/L 42-141 6768-6) ALT (test code = 1742-6) 23 U/L 10-47 AST (test code = 1920-8) 36 U/L 11-38 Total bilirubin (test code = 1.0 mg/dL 0.2-1.6 1974-2) Albumin (test code = 1751-7) 3.0 g/dL 3.3-5.5 L Protein (test code = 2885-2) 5.9 g/dL 6.4-8.1 L Anion gap (test code = 01614-1) 4@ANIO 7- 15 mEq/L L A/G ratio (test code = 1759-0) 1.0 0.7-3.8 Lab Interpretation (test code = Abnormal 38078-1) [place] MethodistLactic acid, C-[id number] 16:58:42 Test Item Value Reference Range Interpretation Comments Lactic acid, I-Stat (test code = 3.1 mmol/L 0.5-2.2 H 39374-2) Lab Interpretation (test code = Abnormal 39138-8) [place] [id number] 16:58:42 Test Item Value Reference Range Interpretation Comments Glucose, UA (test code = Negative Negative 97941-4) Bilirubin, UA (test code = Negative Negative 5770-3) Ketones, UA (test code = Negative Negative 2514-8) Specific gravity, UA (test code 1.020 1.001-1.035 = 5811-5) Blood, UA (test code = 5794-3) Trace Negative A pH, UA (test code = 5803-2) 6.0 5.0-8.5 Protein, UA (test code = Negative Negative 16713-3) Urobilinogen, UA (test code = <2.0 <2.0 27272-8) Nitrite, UA (test code = Negative Negative 5802-4) Leukocyte esterase, UA (test Negative Negative code = 5799-2) Color, UA (test code = 5778-6) Yellow Appearance, UA (test code = Slightly Hazy 5767-9) Lab Interpretation (test code = Abnormal 70998-1) [place] MarquezProthrombin time with INR, [id number] 16:48:35 Test Item Value Reference Range Interpretation Comments POC prothrombin time 14.9 11.0- 14.5 sec H (test code = 5964-2) POC INR (test code = 1.3 The Int ernational 01493-7) Normalized Rati o (INR) is a therapeuti c monitoring tool for patients who ar e stable on oral vitamin K antagonist th erapy. An INR of 2.0-3 .0 is suggested for d eep vein thrombosis/pulm onary embolism. An IN R of 2.5-3.5 (high d ose) is suggested for s ome patients with mechanical hear t valves) Lab Interpretation Abnormal (test code = 15650-2) [place] McconnellistCv stress [id number] 05:27:49 Test Item Value Reference Range Interpretation Comments Resting HR (test code 65 = 6182272096) Resting BP (test code 124&62 = 3126272270) Peak MET Achieved 1 (test code = 4206955678) Protocol Name (test DOBUT/ECHO code = 3337981683) Time in Exercise 00:15:00 Phase (test code = 1691808411) Max Systolic BP (test 182 code = 9031645378) Max Diastolic BP 69 (test code = 9460465660) Max Heart Rate (test 137 code = 9248507780) Max Predicted Heart 162 Rate (test code = 9241809698) Target HR Formula (220 - Age)*100% (test code = 2418348474) Test Indication (test LIVER TRANSPLANT code = 2813888890) Arrhy During Ex (test code = 8720789135) ECG Interp Before EX (test code = 7083471194) ECG Interp During Ex (test code = 6292799242) Ex Summary Comment (test code = 0485534803) Overall HR Response to Exercise (test code = 1285264036) Overall BP Response To Exercise (test code = 7526411124) Reason for Protocol Complete Termination (test code = 1298780971) Stress Test -Waveform interpreted in Impression (test code report associated with = 4452837125) image study. No interpretation is provided as part of this Stress ECG report.-Electronically Signed By Owen FRANKLIN, Scott Wiseman ([id number]), proposal editor Marisol Hicks ([id number]) on 03/15/2020 5:27:46 AM [place] [facility]chocardi[facility] Stress, (w Doppler, w Contrast if needed)2020-03-14 14:03:00Interface, Radiology Results In - 03/14/2020 2:03 PM CDT Stress Echocardiography Report [address], [place], [place] [address] Stress ECG tracings are available in [employer] and [employer] All ECG interpretations are included in this report Pat.Name: SUDARSHAN GREGORY.ID: [id number] .Date: 03/14/2020 Refer.MD: ANGELA ROPER MD Exam Time: 10:00:00 AM Study Type:Stress Echo Height: 59in Weight: 200lb BSA: 1.85 m2 Age: 11 1960,59Y Sex: FEMALE BP: 124/62 HR: 62 bpm Sonogrphr: Janelle Mills, RDCS, RVTPat. Stat.:Outpatient Room: OPC 16 Study Status:Final Echo Event ID:[id number] Order ID: [id number] Reason for Study:Liver transplant candidate History / Clinical:Edema, CirrhosisProcedures: Intravenous Definity Contrast, Stress Echo/Dobutamine andColorflow DopplerRace: C SUMMARY: Overall Stress Interp: Normal Stress echo. No evidence of ischemia at 84% of maximal predicated HR.Normal dobutamine stress echocardiogram despite achieving only 84% ofmaximum predicted heart rate. Rate-pressure product sufficient [id number]. FINDINGS: Resting FindingsLV: LV size is normal. LV EF is normal. Overall wall motion is normal. Estimated EF is 60-64%.RV: RV size is normal. RV systolic function is normal.LA: LA volume is mild to moderately enlarged.RA: RA size is normal.AO: Aortic root diameter is normal.GERA: No pericardial effusion.AV: No structural AV abnormalities noted.MV: Focal calcification of mitral leaflets. A trace of mitral regurgitation. PV: No structural PV abnormalities noted.TV: No structural TV abnormalities noted. A trace of tricuspid regurgitation Ruano: Normal diastolic function and LV filling pressures.Other: Estimated PA systolic pressure is 27 mmHg plus RAP.Stress FindingsLV: LV EF is hyperdynamic. Overall wall motion is hyperdynamic. Estimated EF is >70%. STRES S: Baseline Vital Signs: Intervention DobutamineECG Normal sinus Peak Dose 40 mcg/kg/minHR 62 Atropine 0.75Rest BP: 124/62 Duration 16:00Stress Test Results:Max HR 136 Contrast Definity 2 mlTarget HR 162 % Target: 84 %MaxBP 168/72 O2 Sat 96 %Max RPP 64135 Symptoms and Complications:Arrhythmias PVCsReason for Stopping Test: Other, Could not achieve 85% maximalpredicted heart rate despite maximum dobutamine infusion rate andaugmentation with atropine.Overall Stress Interp: Normal Stress echo. No evidence of ischemia at84% of maximal predicated HR.Stress ECG Interp Normal Stress ECG. No ST changes occurred duringstress., Results must be viewed with caution since patient did notachieve the expected maximum heart rate response (85%) for age and sexof our normal populatio n MEASUREMENTS: ------ 2DParasternal Long [place] Ao An 1.8 cm LVPWd 0.7 cm Ao Rtd 2.6 cm Index 1.4 cm/m2 LA Ds 3.6 cm IVSd 0.8 cm RWT 0.3 LVIDd 4.4 cm Index 2.4 cm/m2 LV Mass 99.2 g (87-129) LVIDs 2.7 cm LVM Index 53.6 g/m2 LV%fs 37.7 % LVOT 1.7 cm LA Sng Plane LA Area 23.3 cm2 (8.8-23.4) LA Vol 77.8 ml Index 42.1 ml/m2 LA LngAx 5.9 cm LVOT LVOT Area 2.4 cm2 DOPPLERLVOT Stroke Vol & Cardiac Out LVOT TVI 36.7 cm HR 60 bpm LVOT LVOT SV 88.3 ml LVOT CO 5.3 l/min SVi 47.7 ml/m2 LVOT CI 2.9 l/m/m2 Signed 03/14/2020 02:03 Ernesto Segura MethodistZinc level, [id number] 11:52:55 Test Item Value Reference Range Interpretation Comments Zinc (test code 109.1 ug/dL 60-120 INTERPRETIVE INFORMATION: = 67832-2) Zinc, Serum or PlasmaElevated results may be due to skin or collection-rela barron contamination, including the use of a no ncertified metal-free collection/aranda sport tube. If contaminatio n concerns exist due to el evated levels of serum /plasma zinc, confirmat ion with a second specimen collected in a certified metal-free tube is recommended.Cir culating zinc concentrat ions are dependent on al bumin status and are depressed with malnutriti on. Zinc may also be low ered with infection, infl ammation, stress, oral contraceptives, and . Zin c may be elevated with z inc supplementation or fasting. [place] barron zinc concentrations may interfere with copper absorption. Grace t developed and characteris tics determined by [facility]. S ee Compliance Stat ement B: Zurff/CSP erformed By: ESEQUIEL guillen[address] [place] [id number] ory Director: Arpit Liu MD, MS Cat[facility] MarquezPhosphorus [id number] 07:30:20 Test Item Value Reference Range Interpretation Comments Phosphorus (test code = 2777-1) 2.9 mg/dL 2.4-4.5 [facility] MethodistXR Abdomen 1 Vw [id number] 18:23:16Hm Interface, Radiology Results 02/19/2020 6:26 PM CDTEXAMINATION: XR ABDOMEN 1 VW PORTABLECLINICAL HISTORY: 59 years Female Abd pain unspecified, RLQ pain rule out constipationCOMPARISON: January 07IMPRESSION: There is a nonspecific bowel gas pattern. .There are no suspicious calcifications overlying the kidneys or expected course of the uretersThe osseous structures are within normal limitsThe lung bases are clear.[facility]acho MethodistVitamin D 25 hydroxy [id number] 16:30:40 Test Item Value Reference Range Interpretation Comments Vitamin D, 25-hydroxy 11.1 ng/mL 30-150 L This a ssay reports (test code = 1989-) the sum of 25-hydroxy wanda min D3 and 25-hydro xy vitamin D2. Reference range :0-17 years:Deficienc y: less than 20ng/mLOptimum level: greater than or equal to 20 ng/mL.18 years and older:Deficienc y: less than 20ng/mLInsuffic iency : 20-29 ng/mLOp timum Level: 30-80 ng/mLThe assay reportable rang e is 3.4 155.9 ng/m L. Levels higher t hilton 150 ng/mL may b e associated with toxicity.If tox icity is clinically suspected and t he reported result is >155.9 ng/mL,co ntact lab for alterna tive methods to obta in a definitive lev el.If separate quantitation of 25-hydroxy wanda min D3 and 25-hydro xy vitamin D2 is needed, please contact lab for alternative met hods. Lab Interpretation Abnormal (test code = 93231-2) Catracho MarquezHemoglobin [id number] 10:25:32 Test Item Value Reference Range Interpretation Comments Hemoglobin A1C (test 4.9 % 4-5.6 HbA1c c utoffs for code = 71644-8) diagnosing d iabetes:4.0% - 5.6% = normal 5.7% - 6.4% = increase d risk for diabetes (prediabetes)9> =6.5% = htbztcax6Chgzd for glycemic contro l (ADA 2016)< 7.0% Ta rget for non rudi lts with diabetes. More or less stringent targe ts may be appropriate for individual aspne ents. <7.5% Target for Children and ad olescents with type 1 cindy betes. Catracho MarquezQuaibxdgdG54325-97-17 08:32:14 Test Item Value Reference Range Interpretation Comments T4 (test code = 3026-2) <3.0 4.5-11.7 L Lab Interpretation (test code = Abnormal 84259-7) Cat[facility] MarquezThyroid stimulating [id number] 08:32:14 Test Item Value Reference Range Interpretation Comments TSH (test code = 3016-3) 1.83 0.27- 4.20 uIU/mL Catracho McconnellistAlpha eeigzsommwr2728-14-83 08:13:18 Test Item Value Reference Range Interpretation Comments Alpha fetoprotein 1.7 ng/mL 0-8.3 The Delilah 8000 AFP (test code = immunoassay was used. 06231-8) Results obtaine d with different assay methods or kits should not be used interchang eably and may be differen t. Catracho MarquezPartial thromboplastin time, pnkbcrqpp9350-08-38 12:06:51 Test Item Value Reference Range Interpretation Comments PTT (test code = 37.4 23.0- 36.0 sec H PTT thera peutic range 78422-5) for unfractiona barron heparin is61.0- 112.0 seconds which corresponds to Anti-Xa0.3-0.7 U/ml. Lab Interpretation Abnormal (test code = 86851-0) Catracho McconnellistMiscellaneous referral [id number] 11:30:10 Test Item Value Reference Range Interpretation Comments Misc test name PEth (test code = (Phosphatidyle 2566) thanol (PEth) Alcohol Misc test SEE NOTE Phosphatidyleth anol result (test (PEth), Whole B lood, code = 1730) Quantitative [facility] test code 3862379 P Eth 16:0/18.1 (EATON th) 41 ng/mL INTERPRE TIVE INFORMATION:Deb sphatidylet hanol (PEth), W hole BloodPhosphatid ylethanol (PEth) homologu es Res ult Interpretation PEth 16:0/18.1 (EATON th) Less than 10 ng/mL.......... ....Not detectedLess th an 20 ng/mL.......... ....Abstine nce or light al cohol vcywnyulspa06 - 200 ng/mL.......... ........Mod erate alcohol consumptionGrea ter than 200 ng/mL...... ....Heavy alcohol consump tion or chronic alcohol use PEth 16:0/18.2 (PLPEth)....... ..Reference ranges are not well established.(Re ference: Jesica Adan and Dante Torres 2018 J. Forensic Sci ) Phosphatidyleth anol (PEth) is a group of phospholipids f ormed in the presence of ethanol, phospholipase D and phosphatidylcho line. PEth is known to be a direct alcohol biomark er. The predominant PEt h homologues are PEth 16:0/18:1 (EATON th) and PEth 16:0/18:2 (PLPEth), which account f or 37-46% and 26-28% of t he total PEth homologues , respectively. P Eth is incorporated in to the phospholipid me mbrane of red blood cells and has a general half-li fe of 4 - 10 days and a w indow of detection of 2- 4 weeks. However, the wi ndow of detection is lo nger in individuals who chronically or excessively consume alcohol . The limit of quantificati on is 10 ng/mL. Serial m onitoring of PEth may be helpful in monitoring alco hol abstinence over time. PEth results sh ould be interpreted in the context of the patients clinical and behavioral history. Patients with a dvanced liver disease m ay have falsely elevate d PEth concentrations (Mirna MOHAN et al 2018, Alc oholism Clinical & Expe rimental Research). Grace t developed and characteris tics determined by [facility]. S ee Compliance Stat ement B: Zurff/CS - - - - - - - - - - - - - - - - - - - - - - - - - - - - - - PEth 16:0/18.2 (PLPE th) 49 ng/mL =======Test per formed by:ESEQUIEL Ghoshat [address] [place], [place] [address] [place] MethodistBlood culture, aerobic & qqphnnlvl2952-38-22 08:03:05 Test Item Value Reference Range Interpretation Comments Blood culture No growth Specimen isolate (test after 5 days InformationSpe cimen code = 600-7) of Source: BloodS pecimen incubation. Site: Arm, left [place] MethodistOpiates, s/p, [id number] 23:59:17 Test Item Value Reference Range Interpretation Comments 6-acetylmorphine <2 ng/mL INTERPRETIV E INFORMATION: , s/p, quant Opiates, Serum or Plasma, (test code = 80205-6) QuantitativeMet hodology: Quantitative Li quid Chromatography- Tandem Mass SpectrometryPos itive cutoff: 2 ng/mLFor medica l purposes only; not valid for forensic use. Identifica tion of specific drug(s ) taken by specimen donor is problematic due to common m etabolites, some of which a re prescription drugs themselve s. The absence of expected farideh g(s) and/or drug metabolite (s) may indicate non-co mpliance, inappropriate t iming of specimen collec tion relative to drug adminis tration, poor drug absorption , or limitations of testing. All drugs covered a re the non-glucuronida barron (free) form. The con centration value must be g reater than or equal to the cu toff to be reported as pos itive. A very small amount of an unexpected drug analyte in the presence of a large amou nt of an expected drug a nalyte may reflect pharmac eutical impurity. Inter pretive questions shoul d be directed to the freddy ry.Test developed and c haracteristics determined by [facility]. S Compliance Statement B: ar [employer]/CS Codeine, s/p, <2 ng/mL quant (test code = 3506-3) Morphine, s/p, 2 ng/mL Morphine may arise from quant (test code morphine-co ntaining drugs, = 3827-3) poppy seeds, or by metabolism of either codei ne or 6-AM. Morphine is met abolized to hydromorphone. Hydrocodone, <2 ng/mL s/p, quant (test code = 3680-6) Hydromoprhone, <2 ng/mL s/p, quant (test code = 3683-0) Oxycodone, s/p, <2 ng/mL quant (test code = 3893-5) Oxymorphone, <2 ng/mL Performed by [facility] s/p, quant (test Laboratorie s,[address], code = 74356-9) [place] [address] jaq .Zurff, Arpit Liu MD, Lab. Director [facility] ikm 9, ser/carolyn, scrn w/rflx to [id number] 18:46:42 Test Item Value Reference Range Interpretation Comments Amphetamines, s/p, Negative Cutoff 30 ng/mL screen (test code = 8149-7) Methamphetamine, Negative Cutoff 30 ng/mL s/p, screen (test code = 3777-0) Barbiturates, s/p, Negative Cutoff 75 ng/mL screen (test code = 46409-3) Benzodiazepines, Negative Cutoff 75 ng/mL s/p, screen (test code = 71320-5) Cocaine, s/p, Negative Cutoff 30 ng/mL screen (test code = 8191-9) Methadone, s/p, Negative Cutoff 40 ng/mL screen (test code = 60323-6) Opiates, s/p, Positive Cutoff 30 ng/mL If the scre en is positive, screen (test code then confi rmation by mass = 8219-8) spectrometry wi ll be added. Additional tawanda ges will apply. Unconfir med positive may be useful f or medical purposes, but d oes not meet forensic standa rds. Oxycodone, s/p, Negative Cutoff 30 ng/mL screen (test code = 35032-3) Phencyclidine, Negative Cutoff 15 ng/mL s/p, screen (test code = 8236-2) Cannabinoids, s/p, Negative Cutoff 30 ng/mL screen (test code = 8172-9) Drug screen See Note INTERPRETIVE IN FORMATION: comments, serum Drug Screen 9 Panel, Serum (test code = [place] 24262-1) Plasma - Immun oassay Screen with Reflex to Mass Spectrometry Confirmation/Qu antitation1. Methodology: Qu alitative Immunoassay Scr een2. Drugs/Drug clas ses reported as "Positive" a re automatically r eflexed to mass spectromet ry confirmation/qu antitation testing. An im munoassay unconfirmed pos itive screen result may be u seful for medical purpose s but does not meet forens ic standards. 3. T he absence of expected farideh g(s) and/or drug metabolite (s) may indicate non-co mpliance, inappropriate t iming of specimen collec tion relative to farideh g administration, poor drug absorption, or limitations of testing. The concentration a t which the screening test can detect a drug or metabol ite varies within a drug c lass. Specimens for w hich drugs or drug classes are detected by the screen are automatically r eflexed to a second, more sp ecific technology (mas s spectrometry). The concentration v alue must be greater than or equal to the cutoff to b e reported as positive. In terpretive questions shoul d be directed to the laboratory.4. F or medical purposes only; not valid for forensic us e.Test developed and characteristics determined by [facility]. See Compliance Stat ement B: Zurff/CSP erformed by [facility],[address] [place] [address] inl .Zurff , Arpit Liu MD, Lab. Director [place] MethodistFerritin yniwm1858-05-86 16:11:33 Test Item Value Reference Range Interpretation Comments Ferritin level (test code = 2276-4) 28 ng/mL 13-150 [place] MethodistTotal iron binding cyxtyslr3810-99-09 16:06:40 Test Item Value Reference Range Interpretation Comments Iron level (test code = 2498-4) 60 ug/dL 37-145 Iron binding capacity (test code = 321 ug/dL 956-776 2251-7) % Saturation (test code = 2502-3) 18.7 % 15-38 [place] MethodistPrealbumin tettk0393-99-80 05:01:13 Test Item Value Reference Range Interpretation Comments Prealbumin (test code = 6793-4) 12 mg/dL 16-32 L Lab Interpretation (test code = Abnormal 21197-3) [place] MethodistUrinalysis, automated with utezbbhiyl3458-93-36 03:51:53 Test Item Value Reference Range Interpretation Comments Color, UA (test code = 5778-6) Yellow Appearance, UA (test code = 5767-9) Hazy Specific gravity, UA (test code = 1.017 1.001-1.035 5811-5) pH, UA (test code = 5803-2) 5.0 5.0-8.5 Protein, UA (test code = 18407-6) Negative Negative Glucose, UA (test code = 75188-3) Negative Negative Ketones, UA (test code = 2514-8) Negative Negative Bilirubin, UA (test code = 5770-3) Negative Negative Blood, UA (test code = 5794-3) Negative Negative Nitrite, UA (test code = 5802-4) Negative Negative Urobilinogen, UA (test code = <2.0 <2.0 74271-1) Leukocyte esterase, UA (test code = Negative Negative 5799-2) Epithelial cells, UA (test code = 11 /HPF 5787-7) WBC, UA (test code = 5821-4) 1 0- 4 /HPF RBC, UA (test code = 19043-9) 1 0- 5 /HPF Bacteria, UA (test code = 55638-9) Few None seen Yeast, UA (test code = 32818-7) None seen Yeast with pseudohyphae, UA (test None seen code = 73929-9) [place] MethodistXR Foot 3+ Vw [id number] 21:41:47Hm Interface, Radiology Results - 01/18/2020 9:44 PM CDTEXAMINATION: XR FOOT 3 VW RIGHTCLI NICAL HISTORY: fall distal bruising and swellingCOMPARISON: January 10, 2020IMPRESSION: 1. Approximately age and gender appropriate mineralization of the osseous structures. 2. Adequate nonweightbearing alignment of the right foot without acute fracture. Sclerosis of the head of the second metatarsal might be seen in the setting of Freiberg's infraction, clinical correlation recommended. Mild midfoot osteoarthritis. Small plantar calcaneal spur. 3. No focal soft tissue abnormality. [facility]-SN80EGEVNroaqfb MethodistXR Foot 2 Vw Zjcdu8107-59-14 19:24:20Hm Interface, Radiology Results 01/10/2020 7:27 PM CDTEXAMINATION: XR FOOT 2 VW RIGHTHISTORY: 59 years Female Foot pain chronic etiol unknown initial examCOMPARISON: Right foot radiographs from 10/12/2019.FINDINGS: The alignment of the included bones is normal. No fracture or dislocation is identified in the right foot. There are tiny enthesophytes at the plantar insertion of the calcaneus. There is mild to space narrowing at the first MTP joint and in the interphalangeal joints of the second through fifth digits. The soft tissues are unremarkable.IMPRESSION: 1.No fracture or dislo cation is identified in the right foot.2.Tiny enthesophytes at the plantar insertion of the calcaneus.3.Mild degenerative changes of the first MTP joint and in the interphalangeal joints of the second through fifth digits.[facility]-[id number] MethodistSodium level, urine, sovhbd7456-51-86 08:20:15 Test Item Value Reference Range Interpretation Comments Sodium, urine, random (test code = 45 mEq/L 82930-4) [place] MethodistCreatinine level, urine, mfbcrm9657-51-18 08:19:41 Test Item Value Reference Range Interpretation Comments Creatinine, urine, random (test 182 mg/dL code = 23422-2) [place] MethodistCreatine kinase, total (CPK)2020-01-07 15:28:14 Test Item Value Reference Range Interpretation Comments Creatine kinase (test code = 2157-6) 52 U/L 30-190 [place] MethodistTroponin, J-Syuf2550-10Nuzu0650-03-93 15:19:19 Test Item Value Reference Range Interpretation Comments Troponin, I-Stat 0.00 ng/mL 0-0.08 0.09 - 1.49 ng/ml (test code = 2359) May indic ate increased risk of acute coronary syndro me. >=1.5 ng/ml Consistent with acute myocardial infar ction. The diagnostic valu e of a single normal o r non-diagnostic result is questionable. Serial samples at 2-6 hour intervalsare re quired to rule out acute myocardial injury. [facility] cardiac calcium ccruw6498-41-74 14:07:00Interface, Radiology Results In - 12/28/2019 10:28 AM CDT Nuclear Cardiology and Cardiac CT [address] [place] [address] CT Calcium Scoring ReportPat.Name: SUDARSHAN GREGORY Pat.ID: [id number] .Date: 12/25/2019 Refer.MD: ANGELA ROPER MD Exam Time: 1:10:00 PM Study Type:CT Calcium Scoring Height: 59in Weight: 195lbBSA: 1.83 m2 Age: 11 1960,59Y Sex: FEMALE HR: 152 bpm Nuclear Tech:RT Darrell(R)(CT)Pat. Stat.:Inpatient Nuclear Event ID:[id number] Order ID: [id number] Reason for Study:Liver Transplant CandidateProcedures: CT Flash Mode Race: C -------- SUMMARY: Techniqu e: Sequential 3mm CTcuts were obtained through the chest using [facility] [employer] CT scanner with ECG gating. Interactive imageviewing and volumetric display and analysis were also performed. TheCAC score was quant ified using the Agatston scoring method.Non-contrast cardiac CT results are as follows:The total Coronary Artery Calcium Score (CACS) is 0 (ZERO).The non- contrast CT shows a normal cardiac size, no pericardialabnormalities, a normal aortic root of 2.9cm, a normal ascendingthoracic aorta of 3.0cm and a normal descending thoracic aorta of2.5cm. The left main and right coronary arteries appear to originatenormally from the left and right sinus of Valsalva. The right coronary artery is dominant.Non-Cardiac Findings: Hepatobiliar stent . High density material seenin spleen . ( suggestive of TIP procedure ) Conclusion:Normal non-contrast cardiac CT. The coronary artery calcium scoreindicates no significant coronary atherosclerosis and a <0.3% risk peryear of a major cardiac event. A CACS of zero is observed in 68% ofwomen at age 58 years.Recommendations:(1) Continue primary preventative strategies. FINDINGS: -Signed 12/25/2019 2:07:00 PMSu Ernesto Renteria MethodistVENIPUNC NEED PHYS SKILL,DX OR [id number] 14:11:08Samanta Ravi RN 12/24/2019 2:12 PMMidlineDate/Time: 12/24/2019 2:11 PMPerformed by: Samanta Ravi, RNAuthorized by: Baylee Girard MD Consent: Consent obtained: Verbal Consent given by: Patient Risks discussed: arterial puncture, incorrect placement, nerve damage, bleeding, infection, superficial thrombus and deep vein thrombus Alternatives discussed: No treatment and delayedtreatmentUniversal protocol: Procedure explained and questions answered to patient or proxy's satisfaction: yes Relevant documents present and verified: yes Test results available and properly labeled: yes Imaging studies available: yes Required blood products, implants, devices, and special equipment available: yes Site/side marked: yes Immediately prior to procedure, a time out was called: yes Patient identity confirmed: Verbally with patient, arm band, provided demographicdata and hospital-assigned identification numberPre-procedure details: Hand hygiene: Hand hygiene performed prior to insertion Sterile barrier technique: All elements of maximal sterile technique followed Skin preparation: 2% chlorhexidine Skin preparation agent: Skin preparation agent completely dried prior to procedure Anesthesia (see MAR for exact dosages): Anesthesia method: Local infiltration Local anesthetic: Lidocaine 1% w/o epi Route of administration: SubcutaneousLine Placement Details: Patient position: Flat Vessel Size (mm): 4 Indication: Poor venous access Locat ion: Right basilic Device Type: Non-valved Catheter size: 5 Fr Catheter to vein ratio: 43%Line Characteristics: Catheter Brand: Bioflo midline External Catheter Length (cm): 0 InternalCatheter Length (cm): 12 Total Catheter Length (cm): 12 Catheter Lot Number: [id number] Catheter Expiration Date: 1Procedure Details: Landmarks identified: yes Ultrasound guidance: yes Sterile ultrasound techniques: Sterile gel and sterile probe covers were used Number of attempts: 1 Number of PICC kits used during procedure: 1 Purpose of procedure: Midline Placement Patency/Placement: Flushes without difficulty, flushed with 10 mL normal saline, positive blood return and injection cap placed PICC placed utlizing ultrasound-guided Modified Seldinger Technique: Yes Dressing/Securement: Catheter securement device and antimicrobial dressing applied Blood Loss Amount: Less than 20 mLPost- Procedure Details: Post-procedure: Dressing applied Patient tolerance of p rocedure: Tolerated well, no immediate complicationsBonne Terre MethodistLipid [id number] 18:47:22 Test Item Value Reference Interpretation Comments Range Cholesterol (test 147 mg/dL <200 code = 2093-3) Triglycerides (test 61 mg/dL <150 code = 2571-8) HDL cholesterol 47 mg/dL >40 (test code = 2085-9) LDL cholesterol 95 mg/dL <100 Result obtai jose juan by direct (test code = 2089-1) LDL adri surement Lipid panel SeeBelow Total Cholester ol (mg/dL) interpretation (test < 200 code = 38799-3) Desirable 200-239 Borderline -high >=240 Hi gh Triglyceri armani (mg/dL) <150 No rmal 150-199 Borderline-high 200-499 High >=500 Very high HDL Choles terol (mg/dL) <40 Low (male) < 40 Low (female) L DL Cholesterol (mg /dL) <100 Optimal 1 00-129 Near or above o ptimal 130-159 Borderline-high 160-189 High >=190 Very high Risk Cat ergories that modify LDL goals.Risk Catergories LDL goal (mg/dL )CHD and CHD risk equiva lent <100 (10-year risk >20%)Multiple ( 2+) risk factors < 130 (10-year risk = <20%)0-1 risk factors <160 (<10-ye ar risk) Defining levels of lipids in metabolic syndromeTriglyc erides > =150 mg/dLHDL Choles terol Men <40 mg/dL Women <40 mg/dL Non-HDL cholest lj is a second target f or therapy in personswith high triglycerides ( >=200 mg/dL) [place] MethodreemaLipase [id number] 18:47:09 Test Item Value Reference Range Interpretation Comments Lipase (test code = 3040-3) 80 U/L 13-60 H Lab Interpretation (test code = Abnormal 24460-3) [place] MethodistStrep screen [id number] 13:22:18 Test Item Value Reference Range Interpretation Comments Strep screen No beta hemolytic Specimen culture Streptococci InformationSpec imen isolate (test isolated Source: Throat Specimen code = 2246) Site: Not other le specified [place] JayeshistMRI Abdomen W Wo [id number] 08:09:17Hm Interface, Radiology Results Incoming 10/15/2019 8:12 AM CSTEXAMINATION: MRI ABDOMEN W WO CONTRASTCLINICAL HISTORY: cirrhosis need to rule out HCCCOMPARISON: MRI 04/23/2019TECHNIQUE: Multiplanar, multisequence MRI of the abdomen with and without intravenous gadolinium.FINDINGS:The liver is cirrhotic. No focal hepatic mass is identified within limitation of moderate motion artifact. There is c onfluent fibrosis in the hepatic dome.Portal vein is patent. Status post TIPS.Gallbladder is absent.No biliary dilatation. Normal pancreas.Mild left and moderate splenomegaly. No ascites.5 cm posterior left renal cyst. There is some cortical atrophy of the kidneys. No adrenal mass.No lymphadenopathy.3 cm incidental right adnexal cyst.Aorta is normal in caliber.Mesh repair of ventral hernia.IMPRESSION:Liver cirrhosis without evidence of HCC.Status post TIPS. No ascites.[facility]-[id number] MethodistTransthoracic Echocardiogram Complete, (w Contrast, Strain and 3D if needed)2019-10-14 17:04:00Interface, Radiology Results In 10/14/2019 5:07 PM [facility] Echocardiography Report [id number]Name: SUDARSHAN GREGORY.ID: [id number].Date: 10/14/2019 Refer.MD: HERIBERTO YROK MD Exam Time: 2:46:00 PM Study Type:Routine Echo Height: 59in Weight: 198lb BSA: 1.84 m2 Age: 11 1960,59Y Sex: FEMALE BP: 100/54 HR: 63 bpm Sonogrphr: BIJAN Jorge; Kendrick Cardenas. Stat.:Inpatient Room: L0452-O Study Status:Final Echo Event ID:[id number] Order ID: [id number] Reason for Study:liver protocol transplant listing statusHistory / Clinical:Edema, CirrhosisProcedures: 2D Echo, Colorflow Doppler, StrainRace: C SUMMARY: Normal LV systolic and diastolic function.Normal RV systolic function.Normal RAP and PASP estimate. FINDINGS : LV: LV size is normal. Normal average LV global longitudinal strain at -24%. LV EF is normal. Overall wall motion is normal. Estimated EF is 60-64%.RV: RV size is normal. RV systolic function is normal.LA: LA volume is moderately enlarged.RA: RA size is normal.AO: Aortic root diameter is normal.GERA: No pericardial effusion. There is an anterior space consistent with a prominent epicardial fat pad.SVn: Inferior vena cava is normal. Normal collapse of IVC during inspiration is consistent with normal RA pressure.AV: Tri cuspid aortic valve.MV: No structural MV abnormalitiesnoted.PV: No structural PV abnormalities noted.TV: No structural TV abnormalities noted.Mild tricuspid regurgitation Ruano: Normal diastolic function and LV filling pressures.Other: Estimated PA systolic pressure is 20-25 mmHg, assuming a mean RAP of 0-5 mmHg.----- MEASUREMENTS: 2DParasternal [place] Ao An 1.8 cm LVPWd 0.88 cm AoRtd 2.7 cm Index 1.5 cm/m2 LA Ds 3.6 cm IVSd 0.88 cm RWT 0.41 LVIDd 4.3 cm Index2.3 cm/m2 LV Mass 120 g (87-129) LVIDs 2.9 cm LVM Index 65 g/m2 LV%fs 33 % LVOT 1.6 cm LA Sng Plane LA Area 23 cm2 (8.8-23.4) LA Vol 78 ml Index 42 ml/m2 LA LngAx 5.8 cm Aorta Ao Asc 2.7 cm (2.1-3.4)LVOT LVOT Area 2 cm2 DOPPLERLVOT Stroke Vol LVOT TVI 32 cm HR 67 bpm LVOT LVOT SV 64 ml LVOT CO 4.3 l/min SVi 35 ml/m2 LVOT CI 2.3 l/m/m2 Signed 10/14/2019 05:04 PMMohamErnesto Kam MethodistPotassium [id number] 10:19:16 Test Item Value Reference Range Interpretation Comments Potassium (test code = 2823-3) 4.1 3.5- 5.0 mEq/L [place] JayeshistSmear zuwast5338-03-07 08:21:26 Test Item Value Reference Range Interpretation Comments Platelet slide review Mkd decreased A (test code = 45440-4) Anisocytosis (test code = Moderate 702-1) Ovalocytes (test code = Moderate 774-0) REJI (test code = REJI) Unable to perform testing, specimen is HEMOLYZED. Recollect requested for K, AST. BERTHA CASTRO/BRODY notified by CF at 10/14/2019 07:51. Lab Interpretation (test Abnormal code = 62696-5) [facility] MethodistGroup A strep, rapid [id number] 08:37:24 Test Item Value Reference Interpretation Comments Range Group A Negative for Group Specimen strep, rapid A Streptococcus InformationS pecimen antigen antigen. Source: ThroatS pecimen result (test Site: Not other le code = specified 0274549) [place] JayeshistXR Knee 1 Or 2 Vw [id number] 23:29:01Hm Interface, Radiology Results 10/12/2019 11:32 PM CSTExamination: XR KNEE 1 OR 2 VW RIGHTClinical History: Knee pain initial examComparison: None.Findings:2 views of the right knee are obtained. No acute fracture or dislocation is seen. The joint spaces are within normal limits. Soft tissues are unremarkable.No joint effusion is seen.IMPRESSION:1. No acute abnormality identified in theright knee.[facility]-[id number] MethodistXR Foot 3+ Vw [id number] 23:28:37Hm Interface, Radiology Results 10/12/2019 11:31 PM CSTExamination: XR FOOT 3 VW LEFTClinical History: Foot trauma [facility] initial examComparison: None.Findings:3 views of the left foot are obtained. No acute fracture or dislocation is seen. The joint spaces are within normal limits.Soft tissues are unremarkable.IMPRESSION:1. No acute abnormality identified in the left foot.[facility]-[id number] MethodistUS Leryksp1074-14-34 18:26:06Hm Interface, Radiology Results 09/02/2019 6:29 PM CSTEXAM: US HEPATICCLINICAL DATA: cirrhosis hepatic encephalopathyCOMPARISON: CT abdomen May 07, 2019FINDINGS:A limited abdominal ultrasound was performed.LIVER: Liver is cirrhotic. No focal masses detected by ultrasound. GALLBLADDER/CBD: There is been prior hysterectomy. The common bile duct is normal in diameter at 4.1 mmPORTALVEIN: .A TIPS shunt is in place and is patent and appears to have hepatopedal flow. The main portal vein is patent, 0.9 cm in diameter with hepatopedal flow.OTHER: There is no ascites.IMPRESSION: Cirrhosis without acute focal abnormality.TIPS patentMain portal vein patent with hepatopedal flow. PriorAD[facility]-[id number] MethodistXR Shoulder 2+ Vw [id number] 12:33:38Hm Interface, Radiology Results 09/01/2019 12:36 PM CSTEXAMINATION: XR SHOULDER 2 VW LEFTCLINICAL HISTORY: fall painCOMPARISON: None.IMPRESSION:There is no evidence of acute left shoulder fracture or dislocation. Mild degenerative changes are present with marginal osteophyte formation.Havre-Sachs deformity is present from prior dislocation.[facility]-[id number] MethodistCT Cervical Spine Wo Contrast 2019-09-01 12:15:49Hm Interface, Radiology Results 09/01/2019 12:18 PM CSTEXAMINATION: CT CERVICAL SPINE WO CONTRASTCLINICAL HISTORY: Neck pain initial examCOMPARISON: NoneTECHNIQUE: Axial noncontrast enhanced images of the cervical spine were obtained with coronal and sagittal reconstructed algorithms. CT imaging was performed with iterative reconstruction technique and/or automated exposure control to reduce radiation dose.FINDINGS:The alignment of the cervical spine is within normal limits. No subluxation. No displaced fractures identified. Scattered tiny degenerative Schmorl's nodes with endplate sclerosis is noted along the C3-C4, C4-C5 and C6-C7 intervertebral disc spaces. No suspicious osseous lesion. Vertebral body heights are preserved.No prevertebral edema or neck mass identified. No cervicallymphadenopathy identified. Thyroid gland is normal in appearance. Lung apices are clear.Axial images through the disc spaces demonstrate the following:C1-C2: No significant spinal canal stenosis.C2-C3: No significant posterior disc disease, spinal canal, subarticular zone, or neural foraminal stenosis.C3-C4: Moderate right neural foraminal stenosis secondary to degenerative uncovertebral and facet ar throsis. No significant posterior disc disease, spinal canal, subarticular zone, or left neural foraminal stenosis.C4-C5: Near complete intervertebral disc height loss with circumferential disc bulge which indents the ventral thecal sac and results in mild to moderate central canal and moderate bilateral neural foraminal stenosis when combined with marginal endplate and facet osteophytes, image 63 ofseries 5.C5-C6: Near complete intervertebral disc height loss with circumferential disc bulge which indents the ventral thecal sac and results in mild to moderate central canal and moderate bilateral neural foraminal stenosis when combined with marginal endplate and facet osteophytes, image 71 of series 5.C6-C7: Mild bilateral neural foraminal stenosis secondary to degenerative uncovertebral and facet arthrosis. Central canal is patent.C7-T1: No significant posterior disc disease, spinal canal, subarticular zone, or neural foraminal stenosis.IMPRESSION: No fractures or traumatic injuries identifiedwithin the cervical spine. Multilevel degenerative changes as detailed [id number] [place] MethodistGram [id number] 06:25:19Gram stain resultRare WBC'sMany Gram positive rodsFew Gram negative rods Comment: Specimen InformationSpecimen Source: UrineSpecimen Site: See [facility] Sikh T4, [id number] 07:46:26 Test Item Value Reference Range Interpretation Comments T4, free (test code = 3024-7) 0.6 ng/dL 0.9-1.7 L Lab Interpretation (test code = Abnormal 53593-7) [facility]-reactive [id number] 07:35:47 Test Item Value Reference Range Interpretation Comments CRP (test code = 1988-5) <0.30 0-0.5 [facility] CenterManual [id number] 14:13:47 Test Item Value Reference Range Interpretation Comments Manual differential (test code = PERFORMED 37808-0) Neutrophils (test code = 88880-6) 69.0 % 39-69 Lymphocytes (test code = 46801-1) 17.0 % 25-45 L Monocytes (test code = 30983-1) 12.0 % 0-10 H Eosinophils (test code = 81439-4) 2.0 % 0-5 Basophils (test code = 42806-7) 0.0 % 0-1 Metamyelocytes (test code = 740-1) 0 % Promyelocytes (test code = 783-1) 0 % Platelet slide review (test code = Decreased A 35849-1) Schistocytes (test code = 800-3) Occasional Ovalocytes (test code = 774-0) Moderate Lab Interpretation (test code = Abnormal 66000-7) [facility] CenterEC 12 [id number] 21:29:03 Test Item Value Reference Range Interpretation Comments Ventricular rate (test 63 code = 253) Atrial rate (test code 63 = 255) AL interval (test code 148 = 266) QRSD interval (test 78 code = 260) QT interval (test code 430 = 264) QTC interval (test code 440 = 265) P axis 1 (test code = 36 267) QRS axis 1 (test code = 29 268) T wave axis (test code 42 = 270) EKG impression (test Normal sinus code = 273) rhythm-Possible Left atrial enlargement-Borderline ECG-In automated comparison with ECG of 18-MAR-2019 22:02,-No significant change was found- [place] MethodistEchocardiogram complete w contrast and 3D if awlnzz0629-94-02 10:45:00Interface, Radiology Results In - 05/08/2019 10:45 AM CDT [facility] Echocardiography Report Pat.Name: SUDARSHAN GREGORY Pat.ID: [id number] St.Date: 05/08/2019 Refer.MD: YOVANY TAVERAS MD.Exam Time: 8:01:00 AM Study Type:Routine Echo Height: 59in Weight: 193lb BSA: 1.82 m2 Age: 11 1960,58Y Sex: FEMALE BP: 93/51 HR: 60 bpm Sonogrphr: CELSO Vernon Pat. Stat.:Inpatient Room: [facility] Study Status:Final Echo Event ID:[id number] Order ID: [id number] Reason for Study:Stroke History / Clinical:Edema, CirrhosisProcedures: 2D Echo, Colorflow Doppler, StrainRace: C -----SUMMARY: LV EF is hyperdynamic.Estimated EF is >70%.RV systolic function is normal.LV filling pressure is normal.No significant valvular abnormalities.-------- FINDINGS: LV: LV size is normal. LV EF is hyperdynamic. Overall wall motion is hyperdynamic. Estimated EF is >70%.RV: RV size is normal. RV systolic function is normal.LA: LA volume is mildly enlarged.RA: RA size is normal.AO: Aortic root diameter is normal.GERA: No pericardial effusion.AV: No structural AV abnormalities noted.MV: Mild mitral annular calcification. Mild mitral regurgitation. PV: No structural PV abnormalities noted. No evidence of pulmonic regurgitation.TV: No structural TV abnormalities noted. Mild tricuspid regurgitation Ruano: LV filling pressure is normal.Other: Estimated PA systolic pressure is appx 23-28 mmHg, assuming a mean RAP of 5-10 mmHg (IVC not well visualized). -----MEASUREMENTS: 2DParasternal [place] Ao An 1.7 cm LVPWd 0.9 cm Ao Rtd 2.6 cm Index 1.5 cm/m2 LA Ds 4.4 cm IVSd 0.9 cm RWT 0.4 LVIDd 4.3 cm Index 2.4 cm/m2 LV Mass 123.3 g (87-129) LVIDs 2.3 cm LVM Index 67.8 g/m2 LV%fs 46.5 % LA Sng Plane LA Area 21.2 cm2 (8.8-23.4) LA Vol 63.6 mlIndex 34.9 ml/m2 LA LngAx 5.9 cm RA Sng Plane RA Vol 51.1 ml Index 28.1 ml/m2 RA LngAx 5.2 cm RA Area 17.8 cm2 (8.3-19.5)LVOT Stroke Vol LVOT 1.8 cm LVOT LVOT Area 2.5 cm2 DOPPLERLVOT Stroke Vol LVOT TVI 32.1 cm LVOT CI 2.7 l/m/m2 LVOT SV 81.6 ml HR 60 bpm LVOT CO 4.9 l/min LVOT SVi 44.8 ml/m2 Signed 05/08/2019 10:45 Ernesto Sanchez MethodistCT Abdomen Pelvis Wo Contrast 2019-05-07 17:44:29Hm Interface, Radiology Results 05/07/2019 5:47 PM CDTEXAMINATION: CT ABDOMEN PELVIS WOCONTRASTCLINICAL HISTORY: lower abd painCOMPARISON: December 25, 2018TECHNIQUE: Multiple axial CT images of the Abdomen and pelvis were obtained Without IV contrast limiting evaluation . Sagittal and coronal reconstructions were done. Radiation dose reduction technique used for this study.CT imaging was performed with iterative reconstruction technique and/or automated exposure control to reduce radiation dose.FINDINGS:HEPATOBILIARY: A TIPS shunt is in place. The liver is cirrhotic. No obvious focal abnormality.GALLBLADDER: Absent from prior cholecystectomy.SPLEEN: Spleen is upper normal limits in size at 13 cm, stable from prior.PANCREAS: Unremarkable within the limitations of a noncontrast exam.ADRENALS: No adrenal nodules.KIDNEYS: Nonobstructing punctate stones in the right kidney stable. Stable left renal cyst. No hydronephrosis bilaterally.PERITONEUM/RETROPERITONEUM: No free air or fluid. No lymphadenopathy.ABDOMINAL AORTA/IVC: No signs of aneurysm.GI TRACT: Visualized portions of the bowel demonstrate no distention or wall thickening. There are no signs of appendicitis.No signs of diverticulitis.PELVIC ORGANS/BLADDER: The urinary bladder is fluid-filled. A right ovarian cyst measures up to 4 cm, stable. Left ovary unremarkable. No enlarged lymph nodes. No free fluid.BONES AND SOFTTISSUES: No acute abnormality.VISUALIZED LOWER CHEST: No acute abnormality.IMPRESSION:No significant acute abnormality.Stable 4 cm right ovarian cyst.[facility]-[id number] MethodistB natriuretic pep, L-[id number] 16:30:28 Test Item Value Reference Range Interpretation Comments BNP, I-Stat (test code = 07534-0) 54 pg/mL 0-100 [place] MethodistEchocardiogram complete w contrast and 3D if [id number] 11:31:00Interface, Radiology Results In - 04/24/2019 11:32 AM CDT Echocardiography Report [address] [address], [place] [address] Pat.Name: SUDARSHAN GREGORY.ID: [id number].Date: 04/23/2019 Refer.MD: ANGELA ROPER MD Exam Time: 2:39:00 PM Study Type:Routine Echo Height: 59in Weight: 183lb BSA: 1.78 m2 Age: 11 1960,58Y Sex: FEMALE BP: 126/61 HR: 71 bpm Sonogrphr: Vy Demetria, BS, RDCS Pat. Stat.:Outpatient Room: [facility] 16 Study Status:Final Echo Event ID:[id number] Order ID: [id number] Reason forStudy:cardiac clearance, pre liver transplantHistory / Clinical:Edema, CirrhosisProcedures:2D Echo, Colorflow Doppler, Intravenous Saline ContrastRace: C SUMMARY: LV EF is normal. RV size is normal. RV systolic function is normal. FINDINGS: --------LV: LV size is normal. Concentric left ventricular remodeling. LV EF is normal.Overall wall motion is normal. Estimated EF is 60-64%.RV: RV size is normal. RV systolic function is normal.LA: LA volume is mildly enlarged.RA: RA size is normal.AO: Aortic root diameter is normal.GERA: No pericardial effusion.Cntrst: Right to left shunt through a patent foramen ovale.AV: No structural AV abnormalities noted.MV: Mild mitral annularcalcification. Mild mitral regurgitation. PV: Pulmonic valve not well seen.TV: No structural TV abnormalities noted. Mild tricuspid regurgitation Ruano: LV relaxation is reduced, appropriate for age.Other: Estimated PA systolic pressure is 27 mmHg, assuming a mean RAP of 5 mmHg. MEASUREMENTS: 2DParasternal [place] LVOT 1.6 cm LA Ds 3.7 cm LVIDd 3.9 cm Index 2.2 cm/m2 Ao An 1.8 cm LVIDs 2.4 cm Ao Rtd 2.7 cm Index 1.5 cm/m2 LV%fs 38.5 % LV Mass 113.6 g (87-129) IVSd 0.9 cm LVM Index 63.8 g/m2 LVPWd 1 cm RWT 0.5 LA Sng Plane LA Area 20.3 cm2 (8.8-23.4) LA Vol 62.3 ml Index 35 ml/m2 LA LngAx 5.5 cm RA Sng Plane RA Area 14.9 cm2 (8.3-19.5) RA Vol 36.6 ml Index 20.6 ml/m2 RA LngAx 4.[address] roke Vol LVOT 1.6 cm LVOT CO 4.1 l/min LVOT TVI 29.3 cm LVOT CI 2.3 l/m/m2 LVOT Tm 322 msec HR 69 bpm LVOT SV 58.9 ml MMODETricuspid Valve TAPSE 2 cm Signed 04/24/2019 11:31 Shiva Clemente M.D.[facility] pathogen [id number] 06:33:30Respiratory pathogen panelNegative for all pathogens tested:Negative for AdenovirusNegative for Coronavirus DGV7Gljxhrtr for Coronavirus OG72Ybrlftue for Coronavirus 229ENegative for Coronavirus VQ77Jilmwsrq for Human MetapneumovirusNegative for Rhinovirus/EnterovirusNegative for Influenza ANegative for Influenza A/N6Rlvqrwpu for Influenza A/A2Sqpzlphx for Influenza A/H1-2009Negative for Influenza BNegative for Parainfluenza Virus 1Negative for Parainfluenza Virus 2Negative for Parainfluenza Virus 3Negative for Parainfluenza Virus 4Negative for Respiratory Syncytial VirusNegative for Bordetella pertussisNegative for Chlamydophila pneumoniaeNegative for Mycoplasma pneumoniaeThis real-time PCR assaydetects the presence of nucleic acids (RNA or DNA) for the respiratory pathogens listed. A result of "Not-detected" does not exclude the possibility of the presence of one or more pathogens at concentr ations less than the detectable limits of the assay. Comment: Specimen InformationSpecimen Source: NaresSpecimen Site: [facility] Chest 1 Vw [id number] 21:42:17Hm Interface, Radiology Results 04/11/2019 9:45 PM CDTEXAMINATION: XR CHEST 1 VW PORTABLECLINICAL HISTORY: SOBCOMPARISON: 11/14/2018.IMPRESSION:The lungs are clear. No pleural effusion or pneumothorax. The cardiomediastinal silhouette is normal. Thoracic aorta atherosclerotic calcifications.No acute osseous abnormalities.[id number] MethodistInfluenza antigen test, reflex negative to [id number] 21:36:50 Test Item Value Reference Range Interpretation Comments Influenza Negative for Specimen antigen (test Influenza A/B [facility] code [facility] 14151-0) antigen. Source: [facility] Site: Left [facility]Venre[facility] blood [id number] 20:37:58 Test Item Value Reference Range Interpretation Comments pH, venous, POC (test code = 7.37 7.32-7.42 2746-6) pCO2, venous, POC (test code = 34 45- 51 mm Hg L 2020-) pO2, venous, POC (test code = 33 25- 40 mm Hg 5-2) Base excess, venous, POC (test -5 mmol/L -2-2 L code = 1927-3) Bicarbonate, venous, POC (test 19.3 mmol/L 21-28 L code = 03144-1) O2 saturation, venous, POC (test 63 % 40-70 code = 2711-0) Lab Interpretation (test code = Abnormal 19152-6) [facility]
--- OUTSIDE RECORDS SUMMARY | 2020-04-10 06:24 | XMS REPORT ---
:1960 Author Organization eClinicalWorks Care Team Providers Name Role Phone DíazFernando Provider Role Unavailable Allergies No Known Allergies Problems Problem Type Condition Code Onset Dates Condition Statu s Problem Fatigue R53.83 Active Problem Anxiety F41.9 Active Problem Depression F32.9 Active Problem Migraine G43.909 Active Problem BMI 40.0-44.9, adult Z68.41 Active Problem Gout M10.9 Active Problem Incontinence of feces, unspecified R15.9 Active fecal incontinence type Problem Inflammatory bowel disease K52.9 A ctive Problem Insomnia, unspecified type G47.00 A ctive Problem Adult BMI 37.0-37.9 kg/sq m Z68.37 Active Problem Irritable bowel syndrome without K58.9 Active diarrhea Problem Seasonal and perennial allergic J30.9 Active rhinitis Problem Cirrhosis of liver K74.60 Active Problem Bipolar disorder F31.9 Active Problem Restless legs syndrome G25.81 Activ e Problem Thrombocytopenia D69.6 Active Problem Kidney stone N20.0 Active Problem Chronic pain G89.29 Active Medications No Known Medications Results No Known Results Summary Purpose eClinicalWorks Submission
--- OUTSIDE RECORDS SUMMARY | 2020-04-10 06:24 | XMS REPORT ---
:1960 Author Organization e[employer]Works Care Team Providers Name Role Phone Fernando Díaz Provider Role Unavailable Allergies No Known Allergies Problems Problem Type Condition Code Onset Dates Condition Statu s Problem Fatigue R53.83 Active Problem Anxiety F41.9 Active Problem Depression F32.9 Active Problem Migraine G43.909 Active Assessment Depression F32.9 Active Problem BMI 40.0-44.9, adult Z68.41 Active Assessment Anxiety F41.9 Active Problem Gout M10.9 Active Problem Incontinence of feces, unspecified R15.9 Active fecal incontinence type Problem Inflammatory bowel disease K52.9 A ctive Problem Insomnia, unspecified type G47.00 A ctive Problem Adult BMI 37.0-37.9 kg/sq m Z68.37 Active Problem Irritable bowel syndrome without K58.9 Active diarrhea Problem Seasonal and perennial allergic J30.9 Active rhinitis Assessment Bipolar disorder F31.9 Active Problem Cirrhosis of liver K74.60 Active Problem Bipolar disorder F31.9 Active Problem Restless legs syndrome G25.81 Activ e Problem Thrombocytopenia D69.6 Active Problem Kidney stone N20.0 Active Problem Chronic pain G89.29 Active Medications No Known Medications Results No Known Results Summary Purpose eClinicalWorks Submission
--- OUTSIDE RECORDS SUMMARY | 2020-04-10 06:24 | XMS REPORT ---
[...] K52.9 A ctive Problem Anxiety F41.9 Active Assessment Muscle spasms of neck M62.48 Active Assessment Restless legs syndrome G25.81 Activ e Problem Seasonal and perennial allergic J30.9 Active rhinitis Problem Restless legs syndrome G25.81 Activ e Problem Kidney stone N20.0 Active Problem Irritable bowel syndrome without K58.9 Active diarrhea Problem Cirrhosis of liver K74.60 Active Medications No Known Medications Results No Known Results Summary Purpose eClinicalWorks Submission
--- OUTSIDE RECORDS SUMMARY | 2020-04-10 06:24 | XMS REPORT ---
:1960 Author Organization [employer] Care Team Providers Name Role Phone KarenCece Provider Role Unavailable Allergies, Adverse Reactions, Alerts Substance Reaction Event Type Phenergan Info Not Available Drug Allergy Iodine Info Not Available Drug Allergy Problems Problem Type Condition Code Onset Dates Condition Statu s Assessment Pain in right foot M79.671 Active Assessment BMI 40.0-44.9, adult Z68.41 Active Assessment Insomnia, unspecified type G47.00 A ctive Assessment Fatigue R53.83 Active Assessment Thrombocytopenia D69.6 Active Assessment Chronic pain G89.29 Active Assessment Restless legs syndrome G25.81 Activ e Assessment At risk for falls Z91.81 Active Assessment Bipolar disorder F31.9 Active Problem Thrombocytopenia D69.6 Active Assessment Incontinence of feces, unspecified R15.9 Active fecal incontinence type Problem Chronic pain G89.29 Active Assessment Anxiety F41.9 Active Problem Fatigue R53.83 Active Problem Anxiety F41.9 Active Problem Depression F32.9 Active Problem Migraine G43.909 Active Problem BMI 40.0-44.9, adult Z68.41 Active Assessment Vitamin B12 deficiency E53.8 Activ e Assessment Cirrhosis of liver K74.60 Active Problem Gout M10.9 Active Assessment Depression F32.9 Active Problem Incontinence of feces, unspecified R15.9 Active fecal incontinence type Problem Inflammatory bowel disease K52.9 A ctive Problem Insomnia, unspecified type G47.00 A ctive Problem Adult BMI 37.0-37.9 kg/sq m Z68.37 Active Assessment Tremor R25.1 Active Problem Irritable bowel syndrome without K58.9 Active diarrhea Assessment Gout M10.9 Active Problem Seasonal and perennial allergic J30.9 Active rhinitis Assessment Inflammatory bowel disease K52.9 A ctive Assessment Migraine G43.909 Active Problem Cirrhosis of liver K74.60 Active Problem Bipolar disorder F31.9 Active Problem Restless legs syndrome G25.81 Activ e Problem Kidney stone N20.0 Active Medications Medication Code Code Instructions Start End Status Dosage System Date Date Gabapentin ND 54638991600 100 MG Orally Active 2 c ap in AM Three times a day 3 caps PM Xifaxan ND 68228772023 550 MG Orally Active 1 tabl et Twice a day Syringe 2-3 ML [facility] 75101181400 3 ML Active 1 intramuscularly syringe/ nee every 2 weeks dle with B12 injection Pantoprazole ND 75936742014 40 MG Orally Once Activ e 1 tablet Sodium a day Sumatriptan ND 22015282838 100 MG Oral Active TAKE AT Succinate ONSET OF HEADACHE. MAY REPEAT IN 2 HOURS IF NO RELIEF. MAXIMUM OF 2 IN 24 HOURS. Indomethacin ND 83419265488 50 MG Orally Active 1 capsule Twice a day with food or milk ProAir HFA [facility] 30347204179 108 (90 Base) Active INH SIMIN 2 MCG/ACT PUFFS NEEDED EVERY 6 HOURS NEEDED FOR SHORTNESS OF BREATH ,COUGH,WHEE ZING BD Disp Needle [facility] 15388510186 25G X 1" Jul 20, Active 1 intramuscularly 2019 needle/s yri every 2 weeks ng with B1 2 injection Belsomra [facility] 33706827585 10 MG Orally Once Active 1 tablet at a day bedtime as needed Zofran ODT ND 14279937022 4 MG Orally every Active 1 tablet on 8 hrs the tongue and allow to dissolve Spironolactone [facility] 04500104352 25 MG Orally Once Act chago 1 tablet a day with food Allopurinol ND 10816799636 100 MG Orally Active 1 tablet Once a day Zinc Sulfate [facility] 41060332230 220 (50 Zn) MG Active TAKE 1 Oral CAPSULE (220 MG TOTAL) BY MOUTH 2 (TWO) TIMES A DAY. Ultram [facility] 71477267439 50 MG Orally Active 1 table t as every 6 hrs needed Seroquel ND 85186995577 50 MG Orally Once Active 1 tablet a day Furosemide ND 21440754622 40 MG Orally Once Active 1 tablet a day Folic Acid ND 24590354018 1 MG Orally Once Active 1 tablet a day Sodium ND 13420925485 650 MG Oral Active TAKE 2 Bicarbonate TABLETS BY MOUTH TWICE DAILY FOR 14 DAYS Topiramate ND 06491550618 50 MG Oral Active TAKE 1 TABLET BY MOUTH AT BEDTIME Rexulti [facility] 80342875088 2 MG Oral Active TAKE 1 TABLET BY MOUTH ONCE A DAY Albuterol Sulfate [facility] 37221823126 108 (90 Base) Sep 09, Acti ve 2 puffs as HFA MCG/ACT 2018 needed Inhalation every 6 hrs PRN Shortness or breath, cough and wheezing Results No Known Results Summary Purpose [employer] Submission
--- OUTSIDE RECORDS SUMMARY | 2020-04-10 06:24 | XMS REPORT ---
[...] A ctive Problem Anxiety F41.9 Active Assessment Encounter for screening mammogram Z12.31 Active for malignant neoplasm of breast Assessment Medicare annual wellness visit, Z00.00 Active subsequent Problem Seasonal and perennial allergic J30.9 Active rhinitis Problem Restless legs syndrome G25.81 Activ e Problem Kidney stone N20.0 Active Problem Irritable bowel syndrome without K58.9 Active diarrhea Problem Cirrhosis of liver K74.60 Active Medications Medication Code Code Instructions Start End Status Dosage System Date Date Syringe 2-3 ML [facility] 37782138819 3 ML Jul 20, Active 1 intramuscularly 2019 syringe/ nee every 2 weeks dle with B12 injection BD Disp Needle [facility] 08527736369 25G X 1" Jul 20, Active 1 intramuscularly 2019 needle/s yri every 2 weeks ng with B1 2 injection Xifaxan [facility] 73297785243 550 MG Orally Active 1 tabl et Twice a day Gabapentin ND 12900230636 100 MG Orally Active 2 c ap in AM Three times a day 3 caps PM Pantoprazole ND 90401097995 40 MG Orally Once Activ e 1 tablet Sodium a day Folic Acid ND 30487156026 1 MG Orally Once Active 1 tablet a day ProAir HFA [facility] 41907646766 108 (90 Base) Active INH SIMIN 2 MCG/ACT PUFFS NEEDED EVERY 6 HOURS NEEDED FOR SHORTNESS OF BREATH ,COUGH,WHEE ZING Spironolactone ND 40002826811 25 MG Orally Once Act chago 1 tablet a day with food Furosemide ND 46942384772 40 MG Orally Once Active 1 tablet a day Zofran ODT ND 98261421696 4 MG Orally every Active 1 tablet on 8 hrs the tongue and allow to dissolve Seroquel ND 65238441612 50 MG Orally Once Active 1 tablet a day Ultram ND 29081163331 50 MG Orally Active 1 table t as every 6 hrs needed Albuterol Sulfate [facility] 72381791914 108 (90 Base) Sep 09, Acti ve 2 puffs as HFA MCG/ACT 2019 needed Inhalation every 6 hrs PRN Shortness or breath, cough and wheezing Cyanocobalamin [facility] 42386685089 1000 MCG/ML Active I NJECT 1 ML IN MUSLCE ONCE A MONTH EVERY 2 WEEKS INJECTION 90 DAYS 30 Results No Known Results Summary Purpose [employer]Works Submission
--- OUTSIDE RECORDS SUMMARY | 2020-04-10 06:24 | XMS REPORT ---
:1960 Author Organization [employer] Care Team Providers Name Role Phone DíazSanjayh Provider Role Unavailable Allergies, Adverse Reactions, Alerts Substance Reaction Event Type Phenergan Info Not Available Drug Allergy Iodine Info Not Available Drug Allergy Problems Problem Type Condition Code Onset Dates Condition Statu s Assessment Adult BMI 37.0-37.9 kg/sq m Z68.37 Active Assessment Fatigue R53.83 Active Assessment Insomnia, unspecified type G47.00 A ctive Assessment Thrombocytopenia D69.6 Active Assessment Chronic pain G89.29 Active Problem Kidney stone N20.0 Active Assessment Restless legs syndrome G25.81 Activ e Problem Cirrhosis of liver K74.60 Active Assessment At risk for falls Z91.81 Active Problem Bipolar disorder F31.9 Active Problem Chronic pain G89.29 Active Problem Thrombocytopenia D69.6 Active Problem Adult BMI 37.0-37.9 kg/sq m Z68.37 Active Problem Incontinence of feces, unspecified R15.9 Active fecal incontinence type Assessment Anxiety F41.9 Active Assessment Incontinence of feces, unspecified R15.9 Active fecal incontinence type Problem Insomnia, unspecified type G47.00 A ctive Assessment Bipolar disorder F31.9 Active Problem Depression F32.9 Active Problem Fatigue R53.83 Active Problem Inflammatory bowel disease K52.9 A ctive Problem Anxiety F41.9 Active Assessment Vitamin B12 deficiency E53.8 Activ e Assessment Inflammatory bowel disease K52.9 A ctive Assessment Depression F32.9 Active Assessment Cirrhosis of liver K74.60 Active Problem Seasonal and perennial allergic J30.9 Active rhinitis Problem Restless legs syndrome G25.81 Activ e Problem Irritable bowel syndrome without K58.9 Active diarrhea Medications Medication Code Code Instructions Start End Status Dosage System Date Date Gabapentin [facility] 38193178853 100 MG Orally Active 2 c ap in AM Three times a day 3 caps PM Zofran ODT ND 58219531045 4 MG Orally every Active 1 tablet on 8 hrs the tongue and allow to dissolve Seroquel [facility] 28478418076 50 MG Orally Once Active 1 tablet a day Ultram ND 35778760532 50 MG Orally Active 1 table t as every 6 hrs needed Albuterol Sulfate ND 59423052379 108 (90 Base) Sep 09, Acti ve 2 puffs as HFA MCG/ACT 2019 needed Inhalation every 6 hrs PRN Shortness or breath, cough and wheezing Belsomra [facility] 50421254071 10 MG Orally Once February Active 1 tablet at a day 24, bedtime as 2019 needed Furosemide ND 48889793603 40 MG Orally Once Active 1 tablet a day Cyanocobalamin ND 73382094092 1000 MCG/ML Mar Active i nject 1 ml Injection , in muslce 2019 once a month every 4 weeks injection Pantoprazole [facility] 14211565931 40 MG Orally Once Activ e 1 tablet Sodium a day Spironolactone ND 18179849357 25 MG Orally Once Act chago 1 tablet a day with food BD Disp Needle [facility] 60674303519 25G X 1" Jul 20, Active 1 intramuscularly 2019 needle/s yri every 2 weeks ng with B1 2 injection ProAir HFA [facility] 21940108016 108 (90 Base) Active INH SIMIN 2 MCG/ACT PUFFS NEEDED EVERY 6 HOURS NEEDED FOR SHORTNESS OF BREATH ,COUGH,WHEE ZING Syringe 2-3 ML [facility] 44603523291 3 ML Jul 20, Active 1 intramuscularly 2019 syringe/ nee every 2 weeks dle with B12 injection Folic Acid ND 65271951113 1 MG Orally Once Active 1 tablet a day Xifaxan [facility] 65875019951 550 MG Orally Active 1 tabl et Twice a day Results No Known Results Summary Purpose [employer]ClinicalWorks Submission
[2020-04-10] MEDS ORDERED: NA CHLORIDE 0.9% 1,000 ML ONE (06:30)
[2020-04-10 07:04] LABS: Barbiturates NEGATIVE (NEGATIVE); Benzodiazepines NEGATIVE (NEGATIVE); Cocaine NEGATIVE (NEGATIVE); METHAMPHETAM NEGATIVE (NEGATIVE); Methadone NEGATIVE (NEGATIVE); Opiates NEGATIVE (NEGATIVE); Phencyclidine NEGATIVE (NEGATIVE); THC Cannibis NEGATIVE (NEGATIVE)
[2020-04-10 07:06] LABS: Absolute Lymphocytes (CBC) 1.2 K/uL (0.7-4.9); Basophils % 0.8 % (0-1.3); Hematocrit 28.1 % (36.0-45.0); Lymphocytes % 26.6 % (15.3-44.8); MPV 9.2 fL (7.6-11.3); RBC Red Blood Cell Count 3.19 M/uL (3.86-4.86)
[2020-04-10 07:09] LABS: Protime INR 1.11
[2020-04-10 07:14] LABS: Urine Blood NEGATIVE (NEG); Urine Glucose NEGATIVE (NEG); Urine Protein NEGATIVE (NEG)
[2020-04-10 07:23] LABS: ALT/SGPT 7 U/L (12-78); AST/SGOT 23 U/L (15-37); Albumin 2.7 g/dL (3.4-5.0); Alkaline Phosphatase 83 U/L (45-117); BUN Blood Urea Nitrogen 22 mg/dL (7-18); Bicarbonate 22 mmol/L (21-32); Bilirubin Direct 0.4 mg/dL (0-0.2); Glucose Level 83 mg/dL (74-106); Magnesium 1.7 mg/dL (1.8-2.4); NT PRO-BNP 245 pg/mL (<125); Protein, Total 6.1 g/dL (6.4-8.2); Sodium Level 140 mmol/L (136-145); Troponin (Emerg Dept Use Only) < 0.02 ng/mL (0.0-0.045)
[2020-04-10] MEDS ORDERED: LIDOCAINE 1% W/EPI 1:100,000 MDV 20 ML VIAL ONE (07:23)
--- NOTE | 2020-04-10 07:36 | RAD REPORT ---
EXAM DESCRIPTION: CT - Head C Spine Cap Wo Con - 04/10/2020 7:06 am CLINICAL HISTORY: fall, head, neck, chest and abdomen pain COMPARISON: Chest Single View dated 09/10/2019; Stone Protocol dated 12/31/2018; Abdomen Pelvis W Co ntrast dated 04/07/2018 TECHNIQUE: Axial [address] head images were obtained. Axial [address] cervical spine images were obtain ed with sagittal and coronal reconstruction images reviewed. Axial 5 mm images of the chest, abdomen and pelvis were obtained. All CT scans are performed using dose optimization technique as appropriate and may include automated exposure control or mA/KV adjustment according to patient size. FINDINGS: No intracranial hemorrhage, mass or edema. No midline shift or abnormal fluid collection. Mastoid air cells are clear. No acute sinus finding. No skull fracture. Cervical bodies are normal in height and alignment. No fracture or acute bone finding.Disc space narr owing present throughout the cervical spine sparing C2-3. Anterior and posterior endplate spurs are p resent. Multilevel bony foraminal encroachment seen.No prevertebral soft tissue thickening or paraspi nal mass.Central canal detail is inherently limited on CT imaging. CT chest shows no pneumothorax, pulmonary contusion or pleural fluid collection. No mediastinal hem atoma and the aorta and pulmonary arteries are unremarkable. No chest will mass or abnormal axillary finding. No displaced rib fracture or other significant bony finding. CT abdomen and pelvis show no injury to solid abdominal viscera. Cirrhotic liver changes are present with a TIPS shunt tube in place. Splenomegaly is again noted. Gallbladder is absent or tightly contra cted. No biliary tree dilatation. No bowel injury or significant finding. No ascites. No free air or pneumatosis. No abnormal fluid collection or intraperitoneal bleed. Hernia repair changes are noted t o the anterior abdominal wall. Patient may have a very punctate midline ventral hernia at the superio r margin of the mesh. Postsurgical changes are noted to the bowel near the ileocecal valve region. Ut erus and left ovary show no suspicious findings. In the right adnexa 5.3 x 2.6 centimeter oval homoge neous fluid attenuation mass present. This has progressively increased in size compared to prior stud ies. This could be a remnant ovarian or paraovarian cyst. Cystadenoma would be possible. Follow-up ca n be obtained as clinically warranted. No urinary bladder abnormality. No acute bone findings seen in the chest, abdomen or pelvis. Patient has vertebral body degenerative change. This is advanced at L2-3 disc level. IMPRESSION: No significant CT Head finding. Advanced for age cervical spine degenerative change with no acute finding. No significant CT Chest finding. No acute traumatic injury to the abdomen or pelvis. A 5.3 centimeter right adnexal fluid attenuation mass is present, enlarged over serial imaging. Ovarian or paraovarian cyst is possible. Cystadenoma w ould be a consideration. This generally appears to be benign in characteristics. Follow-up outpatient [facility] consultation can be obtained as warranted. Additional nonacute findings detailed in the body of the report.
[2020-04-10 07:40] LABS: Urine Bacteria <20 /HPF (<20); Urine Culture Reflex Order NOT NEEDED; Urine RBC NONE SEEN /HPF (NONE SEEN)
[2020-04-10 08:00] LABS: Blood Morphology Comment NOT SEEN (NOT SEEN); Platelet Estimate DECR; White Blood Cell Scan OK
--- NOTE | 2020-04-10 08:27 | EDPHYS ---
Physician Documentation [facility] Name: Bella Barron Age: 59 yrs Sex: Female : 1960 Arrival Date: 04/10/2020 Time: 06:18 Bed 3 Private MD: ED Physician Ny Philip HPI: 04/10 06:29 This 59 yrs old Female presents to ER via EMS with complaints of Fall Injury. cp 06:30 Details of fall: The patient fell from an upright position, while standing, and struck cp glass table. 06:30 Onset: The symptoms/episode began/occurred just prior to arrival. Associated injuries: cp The patient sustained left flank, laceration, left hip, laceration. Unable to obtain HPI due to altered mental status. EMS reports reported patient has been confused and is concerned about elevated ammonia level due to liver disease. Historical: - Allergies: 06:28 Iodine; bb 06:28 Phenergan; bb 06:28 Rocephin; bb - Home Meds: 06:45 quitapine [Active]; benzodiazipine [Active]; Amoxicillin Oral [Active]; allopurinol rr5 Oral [Active]; Carbidopa-Levodopa Oral [Active]; escitalopram oxalate oral oral [Active]; - PMHx: 06:28 Cirrhosis; Crohn's; Depression; Liver disease; ocd; bb - Immunization history:: Adult Immunizations unknown, Last tetanus immunization: unknown. - Immunization history: Last tetanus immunization: unknown. - Social history:: Smoking status: unknown. ROS: 06:35 Constitutional: Negative for fever. cp 06:35 Skin: Positive for laceration(s), of the left flank and left hip. cp 06:35 Neuro: Positive for altered mental status. 06:35 Unable to obtain ROS due to altered mental status. Exam: 06:40 Head/Face: Normocephalic, atraumatic. cp 06:40 Constitutional: The patient appears alert, awake, non-diaphoretic, well developed, well nourished, obese. 06:40 Eyes: Periorbital structures: appear normal, Pupils: equal, round, and reactive to light and accomodation, Conjunctiva: normal, no exudate, no injection, Sclera: no appreciated abnormality, Lids and lashes: appear normal, bilaterally. 06:40 ENT: External ear(s): are unremarkable, Nose: is normal, Mouth: Lips: moist, Posterior pharynx: Airway: no evidence of obstruction, patent. 06:40 Neck: C-spine: vertebral tenderness, is not appreciated, crepitus, is not appreciated. 06:40 Chest/axilla: Inspection: normal, Palpation: is normal, no crepitus, no tenderness. 06:40 Cardiovascular: Rate: normal, Rhythm: regular, Edema: is not appreciated, JVD: is not appreciated. 06:40 Respiratory: the patient does not display signs of respiratory distress, Respirations: cp normal, no use of accessory muscles, no retractions, labored breathing, is not present, Breath sounds: are clear throughout, no decreased breath sounds, no stridor, no wheezing. 06:40 Abdomen/GI: Inspection: abdomen appears normal, Palpation: abdomen is soft and non-tender, in all quadrants, involuntary guarding, is not appreciated. 06:40 Back: vertebral tenderness, is not appreciated. 06:40 Musculoskeletal/extremity: Exam is negative for bony tenderness, decreased range of motion, deformity. 06:40 Skin: injury, laceration(s), of the left flank, of the left hip, that can be described as clean, no foreign body, linear, with mild bleeding. 06:40 Neuro: Orientation: to person, Mentation: slow to respond, confused. Vital Signs: 06:22 BP 88 / 38; Pulse 65; Resp 16 S; Temp 97.7(A); Pulse Ox 97% on R/A; Weight 96.16 kg bb (R); Height 4 ft. 11 in. (149.86 cm) (R); 06:29 BP 139 / 56; Pulse 69; Resp 16; Pulse Ox 99% on R/A; bb 07:15 BP 146 / 66; Pulse 77; Resp 15; Pulse Ox 99% ; hb 08:15 BP 132 / 62; Pulse 66; Resp 15; Pulse Ox 100% on R/A; hb 09:15 BP 93 / 66; Pulse 53; Resp 15; Pulse Ox 98% ; hb 10:00 BP 103 / 77; Pulse 68; Resp 16; Pulse Ox 100% on R/A; hb 11:00 BP 90 / 70; Pulse 62; Resp 16; Pulse Ox 100% on R/A; hb 06:22 Body Mass Index 42.82 (96.16 kg, 149.86 cm) bb Yojana Coma Score: 06:22 Eye Response: to voice(3). Verbal Response: oriented(5). Motor Response: obeys bb commands(6). Total: 14. Trauma Score (Adult): 06:22 Eye Response: to voice(0); Verbal Response: oriented(1); Motor Response: obeys bb commands(2); Systolic BP: 76 to 89 mm Hg(3); Respiratory Rate: 10 to 29 per min(4); Yojana Score: 14; Trauma Score: 10 07:15 Eye Response: spontaneous(1); Verbal Response: oriented(1); Motor Response: obeys hb commands(2); Systolic BP: > 89 mm Hg(4); Respiratory Rate: 10 to 29 per min(4); [place] Score: 15; Trauma Score: 12 08:15 Eye Response: spontaneous(1); Verbal Response: oriented(1); Motor Response: obeys hb commands(2); Systolic BP: > 89 mm Hg(4); Respiratory Rate: 10 to 29 per min(4); Yoj[place] Score: 15; Trauma Score: 12 09:15 Eye Response: to voice(0); Verbal Response: oriented(1); Motor Response: obeys hb commands(2); Systolic BP: > 89 mm Hg(4); Respiratory Rate: 10 to 29 per min(4); Yojana Score: 14; Trauma Score: 11 10:00 Eye Response: to voice(0); Verbal Response: oriented(1); Motor Response: obeys hb commands(2); Systolic BP: > 89 mm Hg(4); Respiratory Rate: 10 to 29 per min(4); Yojana Score: 14; Trauma Score: 11 11:00 Eye Response: to voice(0); Verbal Response: oriented(1); Motor Response: obeys hb commands(2); Systolic BP: > 89 mm Hg(4); Respiratory Rate: 10 to 29 per min(4); Yojana Score: 14; Trauma Score: 11 Laceration: 08:40 Wound Repair of 16cm ( 6.3in ) subcutaneous laceration to left flank. Linear shaped.. cp Distal neuro/vascular/tendon intact. Anesthesia: Wound infiltrated with 10 mls of 1% lidocaine w/ Epi. Wound prep: Moderate cleansing by me, Wound irrigation by me. Skin closed with 17 1-0 Kirk using staple gun. Dressed with ABD dressing. Patient tolerated well. 08:40 Wound Repair of 10cm ( 3.9in ) subcutaneous laceration to left hip. Linear shaped.. cp Distal neuro/vascular/tendon intact. Wound prep: Moderate cleansing by me, Wound irrigation by me. Skin closed with 10 1-0 Chester using staple gun. Dressed with ABD dressing. Patient tolerated well. 08:40 Wound Repair of 7cm ( 2.8in ) subcutaneous laceration to left hip. Linear shaped.. cp Distal neuro/vascular/tendon intact. Wound prep: Moderate cleansing by me, Wound irrigation by me. Skin closed with 7 1-0 Chester using staple gun. Dressed with ABD dressing. Patient tolerated well. MDM: 06:22 Patient medically screened. cp 06:30 Differential diagnosis: fracture, laceration, multiple trauma, sepsis, hepatic cp encephalopathy. 08:19 Data reviewed: vital signs, nurses notes, lab test result(s), EKG, radiologic studies, cp CT scan, and as a result, I will admit patient. Test interpretation: by ED physician or midlevel provider: ECG. Physician consultation: Brodie Kerr MD was called at 08:20, was contacted at 08:20, regarding admission, to the telemetry unit. patient's condition. 04/10 06:24 Order name: AMMONIA; Complete Time: 08:11 cp 04/10 08:11 Interpretation: Abnormal: NAVDEEP 71. cp 04/10 06:27 Order name: Basic Metabolic Panel; Complete Time: 08:11 cp 04/10 08:12 Interpretation: Normal except: CL 110; BUN 22; CRE 1.57; GFR 34. cp 04/10 06:27 Order name: CBC with Diff; Complete Time: 08:11 cp 04/10 08:12 Interpretation: Normal except: RBC 3.19; HGB 9.6; HCT 28.1; PLT 95; RDW 16.9. cp 04/10 06:27 Order name: LFT's; Complete Time: 08:11 cp 04/10 06:27 Order name: Magnesium; Complete Time: 08:11 cp 04/10 06:27 Order name: NT PRO-BNP; Complete Time: 08:11 cp 04/10 06:27 Order name: PT-INR; Complete Time: 08:11 cp 04/10 06:27 Order name: Troponin (emerg Dept Use Only); Complete Time: 08:11 cp 04/10 06:29 Order name: Lactate; Complete Time: 08:11 cp 04/10 06:29 Order name: Procalcitonin; Complete Time: 08:11 cp 04/10 06:29 Order name: Blood Culture Adult (2) cp 04/10 06:29 Order name: ETOH Level; Complete Time: 08:11 cp 04/10 06:29 Order name: Urine Microscopic Only; Complete Time: 08:11 cp 04/10 06:29 Order name: UDS; Complete Time: 07:09 cp 04/10 07:09 Interpretation: Reviewed. cp 04/10 06:27 Order name: CT Traumagram (Head C Spine CAP wo con); Complete Time: 08:11 cp 04/10 06:27 Order name: EKG; Complete Time: 06:28 cp 04/10 06:51 Order name: Type And Screen; Complete Time: 08:11 cp 04/10 06:59 Order name: Urine Dipstick--Ancillary (enter results); Complete Time: 08:11 eb 04/10 06:59 Order name: Urine --Ancillary (enter results); Complete Time: 08:11 eb 04/10 07:12 Order name: CBC Smear Scan; Complete Time: 08:11 EDMS 04/10 10:27 Order name: Heart Healthy EDMS 04/10 10:27 Order name: Urinalysis EDMS 04/10 10:27 Order name: CBC with Automated Diff EDMS 04/10 10:27 Order name: CBC with Automated Diff EDMS 04/10 10:27 Order name: Comprehensive Metabolic Panel EDMS 04/10 10:27 Order name: Comprehensive Metabolic Panel EDMS 04/10 06:24 Order name: IV; Complete Time: 07:18 cp 04/10 06:27 Order name: Cardiac monitoring; Complete Time: 06:47 cp 04/10 06:27 Order name: EKG - Nurse/Tech; Complete Time: 06:47 cp 04/10 06:27 Order name: Labs collected and sent; Complete Time: 07:18 cp 04/10 06:27 Order name: O2 Per Protocol; Complete Time: 06:47 cp 04/10 06:27 Order name: O2 Sat Monitoring; Complete Time: 06:47 cp 04/10 06:29 Order name: Urine Dipstick-Ancillary (obtain specimen); Complete Time: 06:52 cp Administered Medications: 06:35 Drug: NS 0.9% 1000 ml Route: IV; Rate: 1 bolus; Site: left hand; rr5 07:59 Follow up: Response: No adverse reaction; IV Status: Completed infusion; IV Intake: hb 1000ml 07:30 Drug: Lidocaine-Epinephrine -1%: (1:100,000) 20 ml {Note: administered by James KURTZ.} hb Volume: 20 ml; Route: Infiltration; 08:30 Follow up: Response: No adverse reaction hb 09:14 Not Given (Physician Discretion): Lactulose 20 grams 30 ml PO once cp 09:24 Drug: fentaNYL (PF) 25 mcg Route: IVP; Site: left hand; hb 10:02 Follow up: Response: No adverse reaction hb Disposition: 08:45 Chart complete. cp Disposition: 04/10/20 08:26 Hospitalization ordered by Brodie Kerr for Inpatient Admission. Preliminary diagnosis are Laceration without foreign body of hip - left, Laceration without foreign body of left flank, Encephalopathy, unspecified - hepatic, Altered mental status, unspecified, Other slipping, tripping and stumbling and falls. - Bed requested for Telemetry/MedSurg (Inpatient). - Status is Inpatient Admission. ss - Condition is Stable. - Problem is new. - Symptoms have improved. Addendum: 04/17/2020 09:49 Co-signature as Attending Physician, Ny Philip MD. m a2 Signatures: Dispatcher [employer] EDMS Erica Batista RN RN bb Natalie Gunderson RN RN ss James Busby PA PA cp Gwendolyn Gill RN RN Ny Philip MD MD ma2 Nellie Betancur Raymond, RN RN rr5 Corrections: (The following items were deleted from the chart) 04/10 09:51 09:00 Wound Repair of 16cm ( 6.3in ) subcutaneous laceration to left flank. Linear cp shaped.. Distal neuro/vascular/tendon intact. Anesthesia: Wound infiltrated with 10 mls of 1% lidocaine w/ Epi. Wound prep: Moderate cleansing by me, Wound irrigation by me. Skin closed with 17 1-0 Chester using staple gun. Dressed with ABD dressing. Patient tolerated well. cp 10:29 08:26 Hospitalization Ordered by Brodie Kerr MD for Inpatient Admission. Preliminary eb diagnosis is Laceration without foreign body of hip - left; Laceration without foreign body of left flank; Encephalopathy, unspecified - hepatic; Altered mental status, unspecified; Other slipping, tripping and stumbling and falls. Bed requested for Telemetry/MedSurg (Inpatient). Status is Inpatient Admission. Condition is Stable. Problem is new. Symptoms have improved. cp 11:51 10:29 04/10/2020 08:26 Hospitalization Ordered by Brodie Kerr MD for Inpatient ss Admission. Preliminary diagnosis is Laceration without foreign body of hip - left; Laceration without foreign body of left flank; Encephalopathy, unspecified - hepatic; Altered mental status, unspecified; Other slipping, tripping and stumbling and falls. Bed requested for Telemetry/MedSurg (Inpatient). Status is Inpatient Admission. Condition is Stable. Problem is new. Symptoms have improved. eb
--- NOTE | 2020-04-10 08:27 | ER ---
Nurse's Notes [facility] Name: Bella Barron Age: 59 yrs Sex: Female : 1960 Arrival Date: 04/10/2020 Time: 06:18 Bed 3 Private MD: Diagnosis: Laceration without foreign body of hip-left;Laceration without foreign body of left flank;Encephalopathy, unspecified-hepatic;Altered mental status, unspecified;Other slipping, tripping and stumbling and falls Presentation: 04/10 06:22 Chief complaint: EMS states: they were toned out for report of pt having fallen through bb a glass table receiving multiple lacerations. Care prior to arrival: None. Mechanism of Injury: Fall. Trauma event details: Injury occurred in the [facility], Injury occurred: at home. Injury occurred: April 10, 2020. 06:22 Acuity: OLEG 2 bb 06:22 Method Of Arrival: EMS: [facility] bb 06:27 Coronavirus screen: At this time, the client does not indicate any symptoms associated bb with coronavirus-19. Ebola Screen: No symptoms or risks identified at this time. Initial Sepsis Screen: Does the patient meet any 2 criteria? No. Patient's initial sepsis screen is negative. Does the patient have a suspected source of infection? No. Patient's initial sepsis screen is negative. Risk Assessment: Do you want to hurt yourself or someone else? Unable to obtain. Onset of symptoms was April 10, 2020. Triage Assessment: 06:22 General: Appears in no apparent distress. uncomfortable, obese, Behavior is rr5 cooperative, anxious, drowsy. 07:15 Pain: Pain currently is 8 out of 10 on a pain scale. hb Trauma Activation: Alert Physician: ED Physician; Name: Juan Antonio; Notified At: 06:11; Arrived At: 06:11 Physician: General Surgeon; Name: ; Notified At: 06:11; Arrived At: Physician: Radiology; Name: Arleth; Notified At: 06:11; Arrived At: 06:18 Physician: Respiratory; Name: ; Notified At: 06:11; Arrived At: Physician: Lab; Name: ; Notified At: 06:11; Arrived At: Historical: - Allergies: 06:28 Iodine; bb 06: Phenergan; bb 06:28 Rocephin; bb - Home Meds: 06:45 quitapine [Active]; benzodiazipine [Active]; Amoxicillin Oral [Active]; allopurinol rr5 Oral [Active]; Carbidopa-Levodopa Oral [Active]; escitalopram oxalate oral oral [Active]; - PMHx: 06:28 Cirrhosis; Crohn's; Depression; Liver disease; ocd; bb - Immunization history:: Adult Immunizations unknown, Last tetanus immunization: unknown. - Immunization history: Last tetanus immunization: unknown. - Social history:: Smoking status: unknown. Screenin: Abuse screen: Denies threats or abuse. Tuberculosis screening: No symptoms or risk bb factors identified. :29 Nutritional screening: No deficits noted. Fall Risk Fall in past 12 months (25 points). bb Secondary diagnosis (15 points) impaired mobility, IV access (20 points). Ambulatory Aid- None/Bed Rest/Nurse Assist (0 pts). Mental Status- Overestimates/Forgets Limitations (15 pts.). Total Schaefer Fall Scale indicates High Risk Score (45 or more points). Fall prevention measures have been instituted. Side Rails Up X 2 As available patient and family educated on Fall Prevention Program and Strategies. Primary Survey: 06:22 NO uncontrolled hemorrhage observed. bb 06:22 A: The patient is alert. Airway: patent, No supplemental oxygen in use on arrival. Oral rr5 cavity: clear, gag reflex present, Trachea midline. 06:22 Breathing/Chest: Respiratory pattern: regular, Respiratory effort: spontaneous, rr5 unlabored, Breath sounds: clear, bilaterally. Chest inspection: symmetrical rise and fall of the chest. Circulation: Heart tones present. Pulses: palpable right radial artery, right femoral artery, right dorsalis pedis artery, left radial artery and left dorsalis pedis artery. Skin color: pink, Skin temperature: warm, dry. Disability Alert. Exposure/Environment: All clothing and personal items were removed. There is no evidence of uncontrolled external bleeding. Obvious injury(ies) are noted at this time: lacerated wound left lower back approximate 12-15cm A warming method has been applied: A warm blanket has been provided to the patient. 07:10 Reassessment Airway Airway Patent Breathing/Chest Respiratory pattern Regular rr5 Respiratory effort Spontaneous Unlabored Breath sounds Clear Chest inspection Symmetrical Circulation Pulses Palpable Temperature Warm Dry Disability Alert. 08:00 Reassessment Airway Airway Patent Oxygen No O2 Breathing/Chest Respiratory pattern hb Regular Respiratory effort Spontaneous Unlabored Breath sounds Clear Chest inspection Symmetrical Circulation Pulses Palpable Temperature Warm Dry Disability Verbal stimuli. 09:00 Reassessment Airway Airway Patent Oxygen No O2 Breathing/Chest Respiratory pattern hb Regular Respiratory effort Spontaneous Unlabored Chest inspection Symmetrical Circulation Temperature Warm Dry Disability Verbal stimuli. 10:00 Reassessment Airway Airway Patent Oxygen No O2 Breathing/Chest Respiratory pattern hb Regular Respiratory effort Spontaneous Unlabored Chest inspection Symmetrical Circulation Pulses Palpable Temperature Warm Dry Disability Verbal stimuli. 11:00 Reassessment Airway Airway Patent Oxygen No O2 Breathing/Chest Respiratory pattern hb Regular Respiratory effort Spontaneous Unlabored Chest inspection Symmetrical Circulation Temperature Warm Dry Disability Verbal stimuli. Secondary Survey: 06:25 HEENT: No deficits noted. Gastrointestinal: Abdomen is obese. : No signs and/or rr5 symptoms were reported regarding the genitourinary system. Musculoskeletal: Capillary refill < 3 seconds. Assessment: 07:20 Reassessment: call made to natalie [phone] her verified that the phone and rr5 eyeglass is with him. jewelry at bedside. 07:30 Reassessment: Patient appears in no apparent distress at this time. No changes from hb previously documented assessment. Patient and/or family updated on plan of care and expected duration. Pain level reassessed. 08:30 Reassessment: Patient appears in no apparent distress at this time. No changes from hb previously documented assessment. Patient and/or family updated on plan of care and expected duration. Pain level reassessed. Admission ordered, awaiting room assignment at this time. 08:55 Reassessment: Hold Lactulose per James KURTZ. 09:15 Reassessment: Patient appears in no apparent distress at this time. No changes from hb previously documented assessment. Patient and/or family updated on plan of care and expected duration. Pain level reassessed. 10:00 Reassessment: Patient appears in no apparent distress at this time. No changes from hb previously documented assessment. Patient and/or family updated on plan of care and expected duration. Pain level reassessed. 11:00 Reassessment: Patient appears in no apparent distress at this time. No changes from hb previously documented assessment. Patient and/or family updated on plan of care and expected duration. Pain level reassessed. Vital Signs: 06:22 BP 88 / 38; Pulse 65; Resp 16 S; Temp 97.7(A); Pulse Ox 97% on R/A; Weight 96.16 kg bb (R); Height 4 ft. 11 in. (149.86 cm) (R); 06:29 BP 139 / 56; Pulse 69; Resp 16; Pulse Ox 99% on R/A; bb 07:15 BP 146 / 66; Pulse 77; Resp 15; Pulse Ox 99% ; hb 08:15 BP 132 / 62; Pulse 66; Resp 15; Pulse Ox 100% on R/A; hb 09:15 BP 93 / 66; Pulse 53; Resp 15; Pulse Ox 98% ; hb 10:00 BP 103 / 77; Pulse 68; Resp 16; Pulse Ox 100% on R/A; hb 11:00 BP 90 / 70; Pulse 62; Resp 16; Pulse Ox 100% on R/A; hb 06:22 Body Mass Index 42.82 (96.16 kg, 149.86 cm) bb Yojana Coma Score: 06:22 Eye Response: to voice(3). Verbal Response: oriented(5). Motor Response: obeys bb commands(6). Total: 14. Trauma Score (Adult): 06:22 Eye Response: to voice(0); Verbal Response: oriented(1); Motor Response: obeys bb commands(2); Systolic BP: 76 to 89 mm Hg(3); Respiratory Rate: 10 to 29 per min(4); Yojana Score: 14; Trauma Score: 10 07:15 Eye Response: spontaneous(1); Verbal Response: oriented(1); Motor Response: obeys hb commands(2); Systolic BP: > 89 mm Hg(4); Respiratory Rate: 10 to 29 per min(4); [place] Score: 15; Trauma Score: 12 08:15 Eye Response: spontaneous(1); Verbal Response: oriented(1); Motor Response: obeys hb commands(2); Systolic BP: > 89 mm Hg(4); Respiratory Rate: 10 to 29 per min(4); Yojana Score: 15; Trauma Score: 12 09:15 Eye Response: to voice(0); Verbal Response: oriented(1); Motor Response: obeys hb commands(2); Systolic BP: > 89 mm Hg(4); Respiratory Rate: 10 to 29 per min(4); Yojana Score: 14; Trauma Score: 11 10:00 Eye Response: to voice(0); Verbal Response: oriented(1); Motor Response: obeys hb commands(2); Systolic BP: > 89 mm Hg(4); Respiratory Rate: 10 to 29 per min(4); [place] Score: 14; Trauma Score: 11 11:00 Eye Response: to voice(0); Verbal Response: oriented(1); Motor Response: obeys hb commands(2); Systolic BP: > 89 mm Hg(4); Respiratory Rate: 10 to 29 per min(4); Yojana Score: 14; Trauma Score: 11 ED Course: 06:18 Patient arrived in ED. bb 06:20 Inserted saline lock: 20 gauge in left hand, using aseptic technique. rr5 06:22 James Busby PA is PHCP. cp 06:22 Ashok Romano MD is Attending Physician. cp 06:22 Patient has correct armband on for positive identification. Bed in low position. Call bb light in reach. Side rails up X2. 06:22 Patient maintains SpO2 saturation greater than 95% on room air. bb 06:24 Triage completed. bb 06:28 Arm band placed on Patient placed in an exam room, on a stretcher, on laboratory monitor, bb on pulse oximetry. 06:30 Miguel Stark, RN is Primary Nurse. rr5 06:30 hall monitor on. Pulse ox on. NIBP on. rr5 06:30 Warm blanket given. rr5 06:30 Thermoregulation: warm blanket given to patient. bb 06:50 Inserted saline lock: 18 gauge in left antecubital area, using aseptic technique. Blood rv collected. 06:50 Initial lab(s) drawn, by me, sent to lab. rv 07:07 CT Traumagram (Head C Spine CAP wo con) In Process Unspecified. EDMS 07:11 Attending Physician role handed off by Ashok Romano MD cp 07:11 Ny Philip MD is Attending Physician. cp 08:04 Assist provider with laceration repair Performed by James KURTZ Dressed with ABD pad hb x 2 + foam tape Patient tolerated well. 17 joel to left upper hip laceration, 10 joel to left hip laceration, 7 joel to left lower hip laceration. 08:20 Brodie Kerr MD is Hospitalizing Provider. cp 09:30 Primary Nurse role handed off by Miguel Stark RN sv 09:30 Gwendolyn Gill, RN is Primary Nurse. sv 09:40 Patient admitted, IV remains in place. hb Administered Medications: 06:35 Drug: NS 0.9% 1000 ml Route: IV; Rate: 1 bolus; Site: left hand; rr5 07:59 Follow up: Response: No adverse reaction; IV Status: Completed infusion; IV Intake: hb 1000ml 07:30 Drug: Lidocaine-Epinephrine -1%: (1:100,000) 20 ml {Note: administered by James KURTZ.} hb Volume: 20 ml; Route: Infiltration; 08:30 Follow up: Response: No adverse reaction hb 09:14 Not Given (Physician Discretion): Lactulose 20 grams 30 ml PO once cp 09:24 Drug: fentaNYL (PF) 25 mcg Route: IVP; Site: left hand; hb 10:02 Follow up: Response: No adverse reaction hb Intake: 06:22 PO: 0ml; Total: 0ml. bb 07:59 IV: 1000ml; Total: 1000ml. hb Outcome: 08:26 Decision to Hospitalize by Provider. cp 09:40 Admitted to Tele accompanied by tech, via stretcher, room 202, with chart. hb 09:40 Condition: stable 09:40 Patient's length of stay in the Emergency Department was greater than 2 hours. awaiting room assignment Patient's length of stay extended due to 11:51 Patient left the ED. ss Signatures: Dispatcher [employer] Janina Castillo RN RN Erica Batista RN Natalie Dolan RN RN ss Page, Corey, PA PA cp Baxter, Heather, RN RN hb Elliott Wagner RN RN Miguel Stark, RN RN rr5 Corrections: (The following items were deleted from the chart) 09:39 09:37 BP 93 / 66; Pulse 53bpm; Resp 15bpm; Pulse Ox 98%; sv hb
[2020-04-10] MEDS ORDERED: ONDANSETRON 4 MG/2 ML VIAL IV PRN (10:24)
[2020-04-10] MEDS ORDERED: ACETAMINOPHEN 500 MG TAB PO PRN (10:24)
--- NOTE | 2020-04-10 10:32 | P.HP ---
Certification for Inpatient Patient admitted to: Inpatient With expected LOS: >2 Midnights Practitioner: I am a practitioner with admitting privileges, knowledge of patient current condition, hospital course, and medical plan of care. Services: Services provided to patient in accordance with Admission requirements found in Title 42 Section 412.3 of the Code of Federal Regulations Patient History Date of Service: 04/10/20 Reason for admission: AMS , Fall History of Present Illness: 59-year-old female with past medical history of so Crohn's disease, depression ,OCD and cirrhosis came to ER with history of altered mental status and fall and has injuries in to the left side of the trunk. Patient is a poor historian and is drowsy hence most of the history is obtained from the chart review and also talking to the ER physician. Patient apparently had a fall in fluid and had some lacerated wound which was repaired with joel. Patient was admitted for further management hepatic encephalopathy. Patient was drowsy but arousable in the ER. Her ammonia level was high and was admitted for further management. Allergies ceftriaxone [From Rocephin] Allergy (Verified 03/18/18 08:37) Anaphylaxis iodine Allergy (Verified 10/03/17 02:36) Anaphylaxis promethazine [From Phenergan] Allergy (Verified 03/18/18 08:37) Itching Fish Allergy (Uncoded 08/23/16 14:07) Rash Home medications list reviewed: Yes Home Medications: Furosemide 40 mg PO DAILY 08/22/16 Rifaximin [Xifaxan] 550 mg PO BID 08/22/16 Gabapentin [Neurontin*] 600 mg PO BID 04/25/17 Pantoprazole [Protonix Tab*] 40 mg PO DAILY 04/25/17 Quetiapine [Seroquel*] 200 mg PO BEDTIME 04/25/17 Spironolactone [Aldactone*] 25 mg PO DAILY #30 tab 03/18/18 Eszopiclone 2 ng PO BEDTIME 05/04/18 Methylnaltrexone [place] [Relistor] 3 tab PO DAILY 05/04/18 Potassium Chloride [Klor-Con 10] 4 tab PO DAILY 05/04/18 - Past Medical/Surgical History Diabetic: No Past Medical History: Reviewed- Non-Contributory -: Crohn's -: Liver disease -: Depression -: Cirrhosis -: OCD Past Surgical History: Reviewed- Non-Contributory -: multiple abdominal surgery -: TIPS procedure - Family History Family History: Reviewed- Non-Contributory - Family History Mother Notes: pt was adopted - Social History Smoking Status: Never smoker Alcohol use: No CD- Drugs: No Caffeine use: Yes Review of Systems is unable to be obtained Physical Examination - Vital Signs Temperature: 98.4 F Blood Pressure: 146/76 Pulse: 76 Respirations: 18 - Physical Exam General: Other (Drowsy but arousable ) HEENT: Atraumatic, Normocephalic Neck: Supple Respiratory: Clear to auscultation bilaterally, Normal air movement Cardiovascular: Regular rate/rhythm, Normal S1 S2 Capillary refill: <2 Seconds Gastrointestinal: Soft and benign, W/out hepatosplenomegaly Musculoskeletal: No clubbing, No swelling Integumentary: No rashes, Skin breakdown, Skin lesion, Tenderness/swelling Neurological: Other (Drowsy , But Arousable ) Lymphatics: No axilla or inguinal lymphadenopathy - Studies Laboratory Data (last 24 hrs) 04/10/20 06:50: PT 13.1 H, INR 1.11 04/10/20 06:50: WBC 4.6, Hgb 9.6 L, Hct 28.1 L, Plt Count 95 L 04/10/20 06:50: Sodium 140, Potassium 4.0, BUN 22 H, Creatinine 1.57 H, Glucose 83, Magnesium 1.7 L D, Total Bilirubin 1.0, AST 23, ALT 7 L, Alkaline Phosphatase 83 Assessment and Plan - Problems (Diagnosis) (1) Acute encephalopathy Onset Date: 03/18/18 Current Visit: No Status: Acute (2) Fall Current Visit: No Status: Acute Qualifiers: Encounter type: subsequent encounter Qualified Code(s): W19.XXXD - Unspecified fall, subsequent encounter - Advance Directives Does patient have a Living Will: Yes Does patient have a Durable POA for Healthcare: Yes Physician Review Additional Text: Acute hepatic encephalopathy Fall status post repair lacerated wounds. Hyperammonemia Acute renal insufficiency Hypomagnesemia Anemia of chronic disease Thrombocytopenia History of cirrhosis History of Crohn's disease depression Plan Monitor under telemetry Start on banana bag Monitor electrolytes and replace accordingly monitor renal parameters Start on lactulose Continue home medications and titrate as needed Monitor CBC daily Monitor ammonia levels Monitor neuro vital signs Pain control GI/DVT prophylaxis Time Spent Managing Pts Care (In Minutes): 45
[2020-04-10] MEDS ORDERED: LACTULOSE 20 GM/30 ML UCUP PO ONE (12:00)
[2020-04-10 13:24] VITALS: BMI 42.4
[2020-04-10] MEDS: FOLIC ACID 1 MG, MULTIVITAMINS INJ 10 ML, THIAMINE HCL 100 MG in NA CHLORIDE 0.9% 1,000 ML IV SCH (13:51)
[2020-04-10] MEDS: Rifaximin 550 MG Tab PO SCH (20:33)
[2020-04-10] MEDS: GABAPENTIN 300 MG CAP PO SCH (20:33)
[2020-04-10] MEDS ORDERED: ESZOPICLONE 1 MG TAB PO SCH (21:00)
[2020-04-10] MEDS ORDERED: ESZOPICLONE PO SCH (21:00)
[2020-04-10] MEDS ORDERED: QUETIAPINE 100MG TAB PO SCH (21:00)
[2020-04-10] MEDS: HYDROCODONE/APAP 5/325 MG TAB PO PRN (22:06)
[2020-04-11 05:08] LABS: Basophils % 1.3 % (0-1.3); Hematocrit 26.1 % (36.0-45.0); Lymphocytes % 26.9 % (15.3-44.8); MPV 9.1 fL (7.6-11.3); RBC Red Blood Cell Count 2.97 M/uL (3.86-4.86)
[2020-04-11 05:36] LABS: Albumin 2.4 g/dL (3.4-5.0); Magnesium 1.7 mg/dL (1.8-2.4); Phosphorus 2.7 mg/dL (2.5-4.9); Protein, Total 5.6 g/dL (6.4-8.2)
[2020-04-11] MEDS: GABAPENTIN 300 MG CAP PO SCH (08:01)
[2020-04-11] MEDS: Rifaximin 550 MG Tab PO SCH (08:06)
[2020-04-11 08:15] VITALS: O2SAT 97
[2020-04-11] MEDS ORDERED: METHYLNALTREXONE BROMIDE PO SCH (09:00)
[2020-04-11] MEDS ORDERED: FUROSEMIDE 40 MG TABLET PO SCH (09:00)
[2020-04-11] MEDS ORDERED: MAGNESIUM SULFATE 1 gm IVPB 1 GM/100 ML BAG IV ONE (09:00)
[2020-04-11] MEDS ORDERED: SPIRONOLACTONE 25 MG TABLET PO SCH (09:00)
[2020-04-11] MEDS ORDERED: PANTOPRAZOLE 40MG TABLET PO SCH (09:00)
[2020-04-11] MEDS ORDERED: POTASSIUM CL SA 10 MEQ TAB PO SCH (09:00)
[2020-04-11] MEDS: HYDROCODONE/APAP 5/325 MG TAB PO PRN ×2 (09:17→13:42)
[2020-04-11] MEDS: FOLIC ACID 1 MG, MULTIVITAMINS INJ 10 ML, THIAMINE HCL 100 MG in NA CHLORIDE 0.9% 1,000 ML IV SCH (09:19)
[2020-04-11] MEDS ORDERED: ONDANSETRON 4 MG (ODT) TAB PO PRN (10:00)
[2020-04-11] MEDS ORDERED: Pharmacy Consult 1 EA XX PRN (11:39)
[2020-04-11] MEDS: LACTULOSE 20 GM/30 ML UCUP PO SCH ×2 (13:30→13:37)
[2020-04-11 17:37] VITALS: BP 105/55; TEMP 97.1
[2020-04-11] MEDS ORDERED: PROPRANOLOL HCL 10 MG TAB PO SCH (21:00)
[2020-04-11] MEDS ORDERED: QUETIAPINE 100MG TAB PO SCH (21:00)
[2020-04-11] MEDS ORDERED: BENZTROPINE 1 MG TAB PO SCH (21:00)
[2020-04-11] MEDS ORDERED: ZINC SULFATE 220 MG CAP PO SCH (21:00)
[2020-04-11] MEDS ORDERED: ESCITALOPRAM OXALATE 15 MG PO SCH (21:00)
[2020-04-11] MEDS ORDERED: GABAPENTIN 300 MG CAP PO SCH (21:00)
[2020-04-11] MEDS ORDERED: SUVOREXANT 10 MG PO SCH (21:00)
--- NOTE | 2020-04-11 21:26 | P.DS ---
Admission Date: 04/10/20 Discharge Date: 04/11/20 Primary Care Provider: Leon Tamez Disposition: ROUTINE DISCHARGE Discharge Condition: FAIR Reason for Admission: AMS , Fall Consultations: none Procedures: CT - Head C Spine, Chest, Abd/Pelvis Cap Wo Con - 04/10/2020 7:06 am IMPRESSION: No significant CT Head finding. Advanced for age cervical spine degenerative change with no acute finding. No significant CT Chest finding. No acute traumatic injury to the abdomen or pelvis. A 5.3 centimeter right adnexal fluid attenuation mass is present, enlarged over serial imaging. Ovarian or paraovarian cyst is possible. Cystadenoma would be a consideration. This generally appears to be benign in characteristics. 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 Problem List Acute hepatic encephalopathy Fall status post repair lacerated wounds. Hyperammonemia Acute renal insufficiency Hypomagnesemia Anemia of chronic disease Thrombocytopenia History of cirrhosis History of Crohn's disease depression Brief History of Present Illness: 59-year-old female with past medical history of so Crohn's disease, depression ,OCD and cirrhosis came to ER with history of altered mental status and fall and has injuries in to the left side of the trunk. Patient is a poor historian and is drowsy hence most of the history is obtained from the chart review and also talking to the ER physician. Patient apparently had a fall in fluid and had some lacerated wound which was repaired with jole. Patient was admitted for further management hepatic encephalopathy. Patient was drowsy but arousable in the ER. Her ammonia level was high and was admitted for further management. Hospital Course: Patient was restarted on her home meds and had resolution of symptoms the following morning. She reported feeling back to her baseline and was requesting to be discharged home, she stated whether she was improving or worsening, she would like to be discharged or transferred to [place] where her doctors are. On day of discharge she was able to walk safely on her own, she reportedly felt better, vitals were WNL and stable - she did have low-normal BP and stated this was her regular BP (she checks at home). She was discharged home, counselled on taking her home medications, and f/u with PCP within 1 week. Her laceration repaired with joel did not appear infected. Vital Signs/Physical Exam: Temp Pulse Resp BP Pulse Ox 97.1 F 71 18 105/55 L 100 04/11/20 16:00 04/11/20 16:00 04/11/20 16:00 04/11/20 16:00 04/11/20 16:00 General: Alert, In no apparent distress, Obese HEENT: Atraumatic, PERRLA, EOMI, Sclerae nonicteric Neck: Supple, JVD not distended Respiratory: Clear to auscultation bilaterally, Normal air movement Cardiovascular: Regular rate/rhythm, Normal S1 S2 Gastrointestinal: Normal bowel sounds, No tenderness Integumentary: Other (laceration on left flank - no drainage, +joel, no surrounding erythema) Neurological: Normal speech, Normal affect, Other (no asterixis ) Laboratory Data at Discharge: WBC 3.8 K/uL (4.3-10.9) L D 04/11/20 04:46 Hgb 8.7 g/dL (12.0-15.0) L 04/11/20 04:46 Hct 26.1 % (36.0-45.0) L 04/11/20 04:46 Plt Count 94 K/uL (152-406) L 04/11/20 04:46 PT 13.1 SECONDS (9.5-12.5) H 04/10/20 06:50 INR 1.11 04/10/20 06:50 Sodium 144 mmol/L (136-145) 04/11/20 04:46 Potassium 4.0 mmol/L (3.5-5.1) 04/11/20 04:46 BUN 19 mg/dL (7-18) H 04/11/20 04:46 Creatinine 1.45 mg/dL (0.55-1.3) H 04/11/20 04:46 Glucose 74 mg/dL (74-106) 04/11/20 04:46 Phosphorus 2.7 mg/dL (2.5-4.9) 04/11/20 04:46 Magnesium 1.7 mg/dL (1.8-2.4) L 04/11/20 04:46 Total Bilirubin 1.0 mg/dL (0.2-1.0) 04/11/20 04:46 AST 23 U/L (15-37) 04/11/20 04:46 ALT 15 U/L (12-78) 04/11/20 04:46 Alkaline Phosphatase 71 U/L (45-117) 04/11/20 04:46 Home Medications: Allopurinol 100 mg PO DAILY 04/10/20 Amoxicillin 500 mg PO Q8H 04/10/20 Benztropine Mesylate 0.5 mg PO BEDTIME 04/10/20 Carbidopa/Levodopa [Carbidopa-Levodopa 25-100 Tab] 1 tab PO DAILY 04/10/20 Escitalopram Oxalate [Lexapro] 15 mg PO BEDTIME 04/10/20 Furosemide [Lasix] 40 mg PO DAILY 04/10/20 Gabapentin 600 mg PO BEDTIME 04/10/20 Lactulose [Kristalose] 20 gm PO TID 04/10/20 Magnesium Oxide [Mag 0X*] 400 mg PO DAILY 04/10/20 Ondansetron [Ondansetron Odt] 4 mg PO Q12HP 04/10/20 Pantoprazole [Protonix Tab*] 40 mg PO DAILY 04/10/20 Propranolol [Inderal*] 10 mg PO BID 04/10/20 Quetiapine Fumarate [Seroquel] 250 mg PO BEDTIME 04/10/20 Rifaximin [Xifaxan] 550 mg PO BID 04/10/20 Spironolactone [Aldactone*] 100 mg PO DAILY 04/10/20 Suvorexant [Belsomra] 10 mg PO BEDTIME 04/10/20 Zinc Sulfate [Zinc Sulfate*] 220 mg PO BID 04/10/20 Patient Discharge Instructions: Follow up with PCP within 1 week. Follow up with GI/Liver doctor as scheduled Diet: AHA Activity: Ad amrita Time spent managing pt's care (in minutes): 45
[2020-04-12] MEDS ORDERED: SPIRONOLACTONE 100 MG TAB PO SCH (09:00)
[2020-04-12] MEDS ORDERED: CARBIDOPA/LEVODOPA 25/100 TAB PO SCH (09:00)
[2020-04-12] MEDS ORDERED: MAGNESIUM OXIDE 400 MG TAB PO SCH (09:00)
[2020-04-12] MEDS ORDERED: allopurinoL 100 MG TAB PO SCH (09:00)
[2020-04-12] MEDS ORDERED: FUROSEMIDE 40 MG TABLET PO SCH (09:00)
== END 2020-04-11 16:58 | disposition home or self-care (01) ==
LOC: ER 06:14 → INTOOBSV 10:33 → ERHOLD 10:33 → 2ND 11:34
PROVIDERS: ADMIT Family Medicine; ATTEND Hospitalist
PROC: 0JQ80ZZ Repair Abdomen Subcutaneous Tissue and Fascia, Open Approach (ICD-10-PCS; principal; 2020-04-10)
PROC: 0JQM0ZZ Repair Left Upper Leg Subcutaneous Tissue and Fascia, Open Approach (ICD-10-PCS; 2020-04-10)
DX: K72.90 Hepatic failure, unspecified without coma (principal); E72.20 Disorder of urea cycle metabolism, unspecified; N28.9 Disorder of kidney and ureter, unspecified; E83.42 Hypomagnesemia; D63.8 Anemia in other chronic diseases classified elsewhere; D69.6 Thrombocytopenia, unspecified; K50.90 Crohn's disease, unspecified, without complications; Z87.19 Personal history of other diseases of the digestive system; F32.9 Major depressive disorder, single episode, unspecified; S31.119A Laceration without foreign body of abdominal wall, unspecified quadrant without penetration into peritoneal cavity, initial encounter; S71.012A Laceration without foreign body, left hip, initial encounter; W01.110A Fall on same level from slipping, tripping and stumbling with subsequent striking against sharp glass, initial encounter; Z20.828 Contact with and (suspected) exposure to other viral communicable diseases; F42.9 Obsessive-compulsive disorder, unspecified; E66.9 Obesity, unspecified; Z68.42 Body mass index [BMI] 45.0-49.9, adult; Z79.899 Other long term (current) drug therapy
CPT/HCPCS: 12007; 96361; 87040 ×2; 85025 ×2; 80048; 36415 ×2; 80320; 82140 ×2; 86900; 83735 ×2; 86850; 87205; 81025; 84100; 85610; 86901; 80076; 80307 ×8; 83605; 84484; 80053; 84145; 83880; 70450; 71250; 72125; 97116; 97161; 94760 ×2; 96374; 99285; U0002; J3411 ×2; J3475; J7030 ×2; G0378 ×3; 81003; 81015; G0390

== ENCOUNTER 2020-08-26 12:54 | Emergency (ER) | payer OTHER ==
[2020-08-26] MEDS ORDERED: HYDROCODONE/APAP 5/325 MG TAB ONE (14:31)
--- OUTSIDE RECORDS SUMMARY | 2020-08-26 14:35 | XMS REPORT | Clinical Summary ---
:1960 Author Organization [facility] Address [address] [place] [address] Care Team Providers Name Role Phone Calos [...] 05/05/2016 Medications Medication Sig Dispensed Refills Start Date End Date Status cetirizine (ZyrTEC) Take 10 mg by 0 Active 10 MG tablet mouth every morning. cyanocobalamin 1,000 Inject 1,000 0 Active mcg/mL injection mcg into the shoulder, thigh, or buttocks every 30 (thirty) days. zinc sulfate Take 1 capsule 180 capsule 3 01/25/2020 1 Active (ZINCATE) 220 (50) mg (220 mg total) capsuleIndications: by mouth 2 Hepatic cirrhosis, (two) times a unspecified hepatic day. cirrhosis type, unspecified whether ascites present (HCC), MCFARLANE (nonalcoholic steatohepatitis), S/P TIPS (transjugular intrahepatic portosystemic shunt), Awaiting liver transplant, Hepatic encephalopathy (HCC), Hypokalemia pantoprazole Take 1 tablet 90 tablet 3 01/25/2020 01/24/2021 A ctive (PROTONIX) 40 MG EC (40 mg total) tabletIndications: by mouth every Hepatic cirrhosis, morning. unspecified hepatic cirrhosis type, unspecified whether ascites present (HCC), MCFARLANE (nonalcoholic steatohepatitis), S/P TIPS (transjugular intrahepatic portosystemic shunt), Awaiting liver transplant, Hepatic encephalopathy (HCC), Hypokalemia SUMAtriptan (Imitrex) Take 1 tablet 30 tablet 0 01/25/2020 Active 50 MG (50 mg total) tabletIndications: by mouth daily Hepatic cirrhosis, as needed for unspecified hepatic migraine for up cirrhosis type, to 30 doses. unspecified whether May repeat in 2 ascites present hours if (HCC), MCFARLANE unresolved. Max (nonalcoholic dose 200 mg/day steatohepatitis), S/P TIPS (transjugular intrahepatic portosystemic shunt), Awaiting liver transplant, Hepatic encephalopathy (HCC), Hypokalemia lactulose Take 1 packet 120 packet 6 04/21/2020 Acti ve (Kristalose) 20 gram (20 g total) by packet mouth 4 (four) times a day for 30 days. spironolactone Take 1 tablet 30 tablet 6 04/22/2020 Active (ALDACTONE) 50 MG (50 mg total) tablet by mouth daily for 30 days. gabapentin Take 1 capsule 90 capsule 5 04/21/2020 Ac tive (NEURONTIN) 300 mg (300 mg total) capsule by mouth 3 (three) times a day for 30 days. Additional Information Patient taking differently: 600 mg oral every morning, Informant: Spouse/Significant Other, Reported on 07/05/2020 topiramate (TOPAMAX) Take 50 mg by 0 Active 100 MG tablet mouth 2 (two) times a day. eszopiclone (LUNESTA) Take 1 mg by mouth 0 Active 1 MG tablet nightly. Take immediately before bedtime furosemide (LASIX) 20 Take 1 tablet (20 30 tablet 0 08/13/ 09/12 Active mg tablet mg total) by mouth 2020 daily for 30 days. primidone (MYSOLINE) Take 0.5 tablets 30 tablet 0 08/13/ Active 50 MG tablet (25 mg total) by 2020 mouth nightly. May cut tablet in 1/2 half escitalopram (LEXAPRO) Take 1 tablet (10 30 tablet 0 08/13/ Active 10 MG tablet mg total) by mouth 2020 nightly. brexpiprazole Take 1 tablet (2 30 tablet 0 08/13/ 09/12 Active (Rexulti) 2 mg tablet mg total) by mouth 2020 tablet daily for 30 days. QUEtiapine (SEROquel) Take 1 tablet (50 30 tablet 0 08/13/ 09/12 Active 50 MG tablet mg total) by mouth 2020 nightly for 30 days. eszopiclone (LUNESTA) Take 2 mg by mouth 0 09/03 Discontinued 2 MG tablet nightly. Take /2019 (Reo rder) immediately before bedtime gabapentin (NEURONTIN) Take 600 mg by 0 Discontinued 600 mg tablet mouth 3 (three) (Reorder) times a day. pantoprazole Take 40 mg by 0 /15 Dis continued (PROTONIX) 40 MG EC mouth every (Reorder) tablet morning. QUEtiapine (SEROquel) Take 200 mg by 0 / 15 Discontinued 200 MG tablet mouth nightly. ( Reorder) methylnaltrexone Take 150 mg by 0 06/15 Discontinued (RELISTOR) 150 mg mouth daily as (Reorder) tablet needed (constipation). Do not take this medication if you are no longer actively taking Tramadol. riFAXimin (XIFAXAN) Take 550 mg by 0 /15 Discontinued 550 mg tablet mouth 2 (two) (R eorder) times a day. senna (SENOKOT) 8.6 mg Take 1 tablet by 0 /15 Discontinued tablet mouth every (Reorder ) morning. spironolactone Take 100 mg by 0 /15 Discontinued (ALDACTONE) 100 MG mouth every (Reorder) tablet morning. ondansetron ODT Take 4 mg by mouth 0 06/15 Discontinued (ZOFRAN-ODT) 4 MG every 4 (four) (Reorder) disintegrating tablet hours as needed for nausea or vomiting. traMADol (ULTRAM) 50 Take 50 mg by 0 09/10 Discontinued mg tablet mouth 2 (two) (Stop Taking at times a day as Disch arge) needed for moderate pain. SUMAtriptan (IMITREX) Take 1 tablet (50 9 tablet 1 // 01/24 Discontinued 50 MG tablet mg total) by mouth 2018 (Reorder) daily as needed for migraine for up to 1 dose. May repeat in 2 hours if unresolved. Max dose 200 mg/day topiramate (TOPAMAX) Take 50 mg by 0 01/24 Discontinued 25 MG tablet mouth nightly. (R eorder) lactulose (KRISTALOSE) Take 1 packet (20 270 packet 3 01/24 Discontinued 20 gram g total) by mouth 2018 (R eorder) packetIndications: 3 (three) times a MCFARLANE (nonalcoholic day. steatohepatitis), S/P TIPS (transjugular intrahepatic portosystemic shunt), Awaiting liver transplant, Hepatic encephalopathy (HCC) magnesium oxide 250 mg Take 400 mg by 0 Discontinued magnesium tablet mouth daily. propranolol (INDERAL) Take 10 mg by 0 2 Discontinued 10 MG tablet mouth 2 (two) (St op Taking at times a day. Dischar ge) potassium chloride Take 2 tablets (40 180 tablet 3 01/24 Discontinued (K-DUR) 20 MEQ CR mEq total) by 2018 (Reorder) tabletIndications: mouth every Hepatic cirrhosis, morning. unspecified hepatic cirrhosis type, unspecified whether ascites present (HCC), MCFARLANE (nonalcoholic steatohepatitis), S/P TIPS (transjugular intrahepatic portosystemic shunt), Awaiting liver transplant, Hypokalemia furosemide (LASIX) 40 Take 1 tablet (40 90 tablet 3 01/24 Discontinued mg tabletIndications: mg total) by mouth 2018 (Reorder) Hepatic cirrhosis, every morning. unspecified hepatic cirrhosis type, unspecified whether ascites present (HCC), MCFARLANE (nonalcoholic steatohepatitis), S/P TIPS (transjugular intrahepatic portosystemic shunt), Awaiting liver transplant zinc sulfate (ZINCATE) Take 1 capsule 180 capsule 3 01/24 Discontinued 220 (50) mg (220 mg total) by 2018 (Reorder) capsuleIndications: mouth 2 (two) Hepatic cirrhosis, times a day. unspecified hepatic cirrhosis type, unspecified whether ascites present (HCC), MCFARLANE (nonalcoholic steatohepatitis), S/P TIPS (transjugular intrahepatic portosystemic shunt), Awaiting liver transplant escitalopram (LEXAPRO) TAKE 1 TABLET BY 21 tablet 2 07/27/ 01/24 Discontinued 10 MG tablet MOUTH EVERY DAY 2018 ( Reorder) brexpiprazole Take 2 mg by mouth 0 03/19 Discontinued (REXULTI) 2 mg tablet daily. (Stop Taking at tablet Discharge) magnesium oxide Take 400 mg by 0 01/24 Discontinued (MAG-OX) 400 mg (241.3 mouth daily. 0 (Reorder) mg magnesium) tablet eszopiclone (LUNESTA) Take 1 tablet (1 3 tablet 0 09/06 1 MG tablet mg total) by mouth 2019 nightly for 3 days. Take immediately before bedtime gabapentin (NEURONTIN) Take 1 tablet (600 90 tablet 0 09/03/ 10/03 Discontinued (Med 600 mg tablet mg total) by mouth 2019 List Cleanup) nightly for 30 days. gabapentin (NEURONTIN) Take 1 capsule 60 capsule 2 10/03 Discontinued (Med 300 mg capsule (300 mg total) by 2019 List Cleanup) mouth 2 (two) times a day for 30 days. Breakfast 300 mg, Lunch 300 mg [id number] 1 application 2 0 10/03 enthol 300-4-1 mg-%-% (two) times a day 2019 kit, cream and capsule for 30 days. Prescription given already for a compounding pharmacy to fill eszopiclone (LUNESTA) Take 2 mg by mouth 0 10/14 Discontinued 2 MG tablet nightly. (Reo rder) immediately before bedtime eszopiclone (LUNESTA) Take 1 tablet (2 0 10/14/ 0 10/14 Discontinued 2 MG tablet mg total) by mouth 2019 (Reorder) nightly for 31 days. Okay to cut dose in half if full dose not needed hydrocortisone Insert 1 6 suppository 0 10/14/ 10/20 E xpired (ANUSOL-HC) 25 mg suppository (25 mg 2019 20 suppository total) into the rectum daily for 6 days. eszopiclone (LUNESTA) Take 1 tablet (2 30 tablet 0 10/14/ 0 11/13 2 MG tablet mg total) by mouth 2019 nightly for 30 days. Okay to cut dose in half if full dose not needed famotidine (Pepcid) 20 Take 1 tablet (20 2 tablet 0 12/21/ 01/24 Discontinued MG tablet mg total) by mouth 2019 ( Reorder) daily. predniSONE (DELTASONE) Take 2 tablets the 4 tablet 0 12/24 Discontinued 20 mg tablet night before and 2 2019 (Stop Taking at tablets the Discharg e) morning of test diphenhydrAMINE Take 3 tablets the 6 tablet 0 02/20 Discontinued (Benadryl Allergy) 25 day before, and 2019 020 (Stop Taking at mg tablet take 3 tablets the D ischarge) day of eszopiclone (LUNESTA) Take 1 mg by mouth 0 01/10 Discontinued 1 MG tablet nightly. Take /2019 (Reo rder) immediately before bedtime gabapentin (NEURONTIN) Take 600 mg by 0 06 /10 Discontinued 600 mg tablet mouth nightly. /2019 ( Reorder) gabapentin (NEURONTIN) Take 300 mg by 0 /10 Discontinued 300 mg capsule mouth 2 (two) /2019 ( Stop Taking at times a day. 9am Dis charge) and 2pm [id number] 1 Dose nightly. 0 0 12/23 Discontinued enthoL (Active-Pac) (Error) 300-4-1 mg-%-% kit,gel & capsule eszopiclone (LUNESTA) Take 1 tablet (1 14 tablet 0 01/10/ 0 01/24 1 MG tablet mg total) by mouth 2019 nightly for 14 days. Take immediately before bedtime gabapentin (NEURONTIN) Take 1 tablet (600 0 01/19/ 01/24 Discontinued 600 mg tablet mg total) by mouth 2019 (Reorder) 2 (two) times a day. famotidine (Pepcid) 20 Take 1 tablet (20 90 tablet 3 01/24/ 02/20 Discontinued MG tabletIndications: mg total) by mouth 2019 (Stop Taking at Hepatic cirrhosis, daily. D ischarge) unspecified hepatic cirrhosis type, unspecified whether ascites present (HCC), MCFARLANE (nonalcoholic steatohepatitis), S/P TIPS (transjugular intrahepatic portosystemic shunt), Awaiting liver transplant, Hepatic encephalopathy (HCC), Hypokalemia furosemide (LASIX) 40 Take 1 tablet (40 90 tablet 3 04/21 Discontinued mg tabletIndications: mg total) by mouth 2019 (Stop Taking at Hepatic cirrhosis, every morning. Discharge) unspecified hepatic cirrhosis type, unspecified whether ascites present (HCC), MCFARLANE (nonalcoholic steatohepatitis), S/P TIPS (transjugular intrahepatic portosystemic shunt), Awaiting liver transplant, Hepatic encephalopathy (HCC), Hypokalemia gabapentin (NEURONTIN) Take 1 tablet (600 60 tablet 11 02/20 Discontinued 600 mg mg total) by mouth 2019 ( Reorder) tabletIndications: 2 (two) times a Hepatic cirrhosis, day. unspecified hepatic cirrhosis type, unspecified whether ascites present (HCC), MCFARLANE (nonalcoholic steatohepatitis), S/P TIPS (transjugular intrahepatic portosystemic shunt), Awaiting liver transplant, Hepatic encephalopathy (HCC), Hypokalemia lactulose (Kristalose) Take 1 packet (20 270 packet 3 04/21 Discontinued 20 gram g total) by mouth 2019 (S top Taking at packetIndications: 3 (three) times a Discharge) MCFARLANE (nonalcoholic day. steatohepatitis), S/P TIPS (transjugular intrahepatic portosystemic shunt), Awaiting liver transplant, Hepatic encephalopathy (HCC), Hepatic cirrhosis, unspecified hepatic cirrhosis type, unspecified whether ascites present (HCC), Hypokalemia spironolactone Take 1 tablet (100 90 tablet 3 04/21 Discontinued (ALDACTONE) 100 MG mg total) by mouth 2019 020 (Stop Taking at tabletIndications: every morning. Discharge) Hepatic cirrhosis, unspecified hepatic cirrhosis type, unspecified whether ascites present (HCC), MCFARLANE (nonalcoholic steatohepatitis), S/P TIPS (transjugular intrahepatic portosystemic shunt), Awaiting liver transplant, Hepatic encephalopathy (HCC), Hypokalemia magnesium oxide Take 1 tablet (400 90 tablet 05/31 Discontinued (Med (MAG-OX) 400 mg (241.3 mg total) by mouth 2019 List Cleanup) mg magnesium) daily. tabletIndications: Hepatic cirrhosis, unspecified hepatic cirrhosis type, unspecified whether ascites present (HCC), MCFARLANE (nonalcoholic steatohepatitis), S/P TIPS (transjugular intrahepatic portosystemic shunt), Awaiting liver transplant, Hepatic encephalopathy (HCC), Hypokalemia potassium chloride Take 2 tablets (40 180 tablet 3 02/20 Discontinued (K-DUR) 20 MEQ CR mEq total) by 2019 (Stop Taking at tabletIndications: mouth every Discharge) Hepatic cirrhosis, morning. unspecified hepatic cirrhosis type, unspecified whether ascites present (HCC), MCFARLANE (nonalcoholic steatohepatitis), S/P TIPS (transjugular intrahepatic portosystemic shunt), Awaiting liver transplant, Hypokalemia, Hepatic encephalopathy (HCC) senna (SENOKOT) 8.6 mg Take 1 tablet by 90 tablet 3 01/24/ 05/31 Discontinued (Med tabletIndications: mouth every 2019 List Cleanup) Hepatic cirrhosis, morning. unspecified hepatic cirrhosis type, unspecified whether ascites present (HCC), MCFARLANE (nonalcoholic steatohepatitis), S/P TIPS (transjugular intrahepatic portosystemic shunt), Awaiting liver transplant, Hepatic encephalopathy (HCC), Hypokalemia methylnaltrexone Take 150 mg by 30 tablet 0 08/13 Discontinued (Relistor) 150 mg mouth daily as 2019 (Error) tabletIndications: needed Hepatic cirrhosis, (constipation). Do unspecified hepatic not take this cirrhosis type, medication if you unspecified whether are no longer ascites present (HCC), actively taking MCFARLANE (nonalcoholic Tramadol. steatohepatitis), S/P TIPS (transjugular intrahepatic portosystemic shunt), Awaiting liver transplant, Hepatic encephalopathy (HCC), Hypokalemia ondansetron ODT Take 1 tablet (4 30 tablet 0 08/13 Discontinued (ZOFRAN-ODT) 4 MG mg total) by mouth 2019 (Stop Taking at disintegrating every 6 (six) D ischarge) tabletIndications: hours as needed Hepatic cirrhosis, for nausea or unspecified hepatic vomiting. cirrhosis type, unspecified whether ascites present (HCC), MCFARLANE (nonalcoholic steatohepatitis), S/P TIPS (transjugular intrahepatic portosystemic shunt), Awaiting liver transplant, Hepatic encephalopathy (HCC), Hypokalemia riFAXimin (XIFAXAN) Take 1 tablet (550 180 tablet 3 08/13 Discontinued 550 mg mg total) by mouth 2019 ( Stop Taking at tabletIndications: 2 (two) times a Discharge) Hepatic cirrhosis, day. unspecified hepatic cirrhosis type, unspecified whether ascites present (HCC), MCFARLANE (nonalcoholic steatohepatitis), S/P TIPS (transjugular intrahepatic portosystemic shunt), Awaiting liver transplant, Hepatic encephalopathy (HCC), Hypokalemia topiramate (TOPAMAX) Take 2 tablets (50 28 tablet 0 02/07 25 MG mg total) by mouth 2019 tabletIndications: nightly for 14 Hepatic cirrhosis, days. unspecified hepatic cirrhosis type, unspecified whether ascites present (HCC), MCFARLANE (nonalcoholic steatohepatitis), S/P TIPS (transjugular intrahepatic portosystemic shunt), Awaiting liver transplant, Hepatic encephalopathy (HCC), Hypokalemia QUEtiapine (SEROquel) Take 1 tablet (200 14 tablet 0 02/07 200 MG mg total) by mouth 2019 tabletIndications: nightly for 14 Hepatic cirrhosis, days. unspecified hepatic cirrhosis type, unspecified whether ascites present (HCC), MCFARLANE (nonalcoholic steatohepatitis), S/P TIPS (transjugular intrahepatic portosystemic shunt), Awaiting liver transplant, Hepatic encephalopathy (HCC), Hypokalemia escitalopram (LEXAPRO) Take 1 tablet (10 14 tablet 0 02/07 10 MG mg total) by mouth 2019 tabletIndications: daily for 14 days. Hepatic cirrhosis, unspecified hepatic cirrhosis type, unspecified whether ascites present (HCC), MCFARLANE (nonalcoholic steatohepatitis), S/P TIPS (transjugular intrahepatic portosystemic shunt), Awaiting liver transplant, Hepatic encephalopathy (HCC), Hypokalemia gabapentin (NEURONTIN) Take 0.5 tablets 30 tablet 0 02/20/ 02/20 Discontinued 600 mg (300 mg total) by 2019 (R eorder) tabletIndications: mouth 2 (two) Hepatic cirrhosis, times a day for 30 unspecified hepatic days. With Kidney cirrhosis type, disease, 1/2 dose unspecified whether is recommended, ascites present (HCC), may cut 600 mg MCFARLANE (nonalcoholic tablet in half steatohepatitis), S/P TIPS (transjugular intrahepatic portosystemic shunt), Awaiting liver transplant, Hepatic encephalopathy (HCC), Hypokalemia thiamine 100 MG tablet Take 1 tablet (100 30 tablet 0 03/22 mg total) by mouth 2019 daily for 30 days. gabapentin (NEURONTIN) Take 1 tablet (600 30 tablet 0 04/21 Discontinued 600 mg mg total) by mouth 2019 ( Stop Taking at tabletIndications: nightly. With Discharge) Hepatic cirrhosis, Kidney disease, unspecified hepatic 1/2 dose is cirrhosis type, recommended, may unspecified whether cut 600 mg tablet ascites present (HCC), in half MCFARLANE (nonalcoholic steatohepatitis), S/P TIPS (transjugular intrahepatic portosystemic shunt), Awaiting liver transplant, Hepatic encephalopathy (HCC), Hypokalemia sodium bicarbonate 650 Take 2 tablets 56 tablet 0 mg tablet (1,300 mg total) 2019 by mouth 2 (two) times a day for 14 days. clonAZEPAM (KlonoPIN) Take 1 tablet (0.5 60 tablet 0 03/19/ 03/19 Discontinued 0.5 MG tablet mg total) by mouth 2019 2 (two) times a day for 30 days. clonAZEPAM (KlonoPIN) Take 1 tablet (0.5 60 tablet 0 04/21 Discontinued 0.5 MG tablet mg total) by mouth 2019 2 (two) times a day for 30 days. QUEtiapine (SEROquel) Take 250 mg by 0 Discontinued (Med 200 MG tablet mouth nightly. /2019 L ist Cleanup) clonAZEPAM (KlonoPIN) Take 1 tablet (0.5 60 tablet 0 05/21 0.5 MG tablet mg total) by mouth 2019 2 (two) times a day for 30 days. furosemide (LASIX) 40 Take 1 tablet (40 60 tablet 6 06/03 Discontinued mg tablet mg total) by mouth 2019 ( Stop Taking at 2 (two) times a Disc harge) day for 30 days. potassium chloride Take 1 tablet (20 30 tablet 6 Discontinued (Med (K-DUR) 20 MEQ CR mEq total) by 2019 List Cleanup) tablet mouth daily. allopurinoL (ZYLOPRIM) Take 200 mg by 0 Discontinued 100 MG tablet mouth daily. (Re order) indomethacin (INDOCIN) Take 50 mg by 0 Discontinued 50 MG capsule mouth 2 (two) (E rror) times a day with meals. escitalopram (LEXAPRO) Take 15 mg by 0 Discontinued 10 MG tablet mouth daily. (Reo rder) carbidopa-levodopa Take 1 tablet by 0 05/13 0 Discontinued (Med (SINEMET) 25-100 mg mouth nightly. List Cleanup) per tablet benztropine (COGENTIN) Take 0.5 mg by 0 Discontinued 0.5 MG tablet mouth 2 (two) (E rror) times a day. furosemide (LASIX) 40 Take 40 mg by 0 05/13 3 Discontinued mg tablet mouth daily. (Reorde r) gabapentin (NEURONTIN) Take 300 mg by 0 Discontinued 300 mg capsule mouth every (St op Taking at morning. Discharge) lactulose (CEPHULAC) Take 20 g by mouth 0 06/03 Discontinued 20 gram packet 4 (four) times a (Stop Taking at day. Take 1 packet D ischarge) by mouth 4 times a day potassium chloride Take 20 mEq by 0 05/31 Discontinued (Med (K-DUR) 10 MEQ CR mouth daily. Take 0 List Cleanup) tablet 2 tablets by mouth every morning spironolactone Take 50 mg by 0 06/03 D iscontinued (ALDACTONE) 50 MG mouth every (Stop Taking at tablet morning. Discharge) suvorexant 10 mg Take 10 mg by 0 08/13 Discontinued tablet mouth nightly. (Stop Taking at Discharge) primidone (MYSOLINE) Take 25 mg by 0 08/13 Discontinued 50 MG tablet mouth 2 (two) (Re order) times a day. brexpiprazole Take 2 mg by mouth 0 08/13 Discontinued (Rexulti) 2 mg tablet daily. (Reorder) tablet gabapentin (NEURONTIN) Take 600 mg by 0 Discontinued 300 mg capsule mouth nightly. (Stop Taking at Discharge) potassium chloride Take 20 mEq by 0 08/13 Discontinued (K-DUR) 20 MEQ CR mouth every /2021 (Error) tablet morning. magnesium oxide Take 400 mg by 0 06/03 Discontinued (MAG-OX) 400 mg (241.3 mouth daily. 0 (Reorder) mg magnesium) tablet furosemide (LASIX) 40 Take 1 tablet (40 30 tablet 0 06/03/ 08/13 Discontinued mg tablet mg total) by mouth 2019 daily for 30 days. magnesium oxide Take 1 tablet (400 30 tablet 0 06/03/ 07/07 Discontinued (MAG-OX) 400 mg (241.3 mg total) by mouth 2019 (Stop Taking at mg magnesium) tablet daily for 30 days. Discharge) QUEtiapine (SEROquel) Take 50 mg by 0 / 2 Discontinued 50 MG tablet mouth nightly. (R eorder) gabapentin (NEURONTIN) Take 600 mg by 0 Discontinued 600 mg tablet mouth daily. (Er ror) furosemide (LASIX) 20 Take 40 mg by 0 2 Discontinued mg tablet mouth daily. (Stop T aking at Discharge) spironolactone Take 100 mg by 0 08/13 Discontinued (ALDACTONE) 100 MG mouth daily. (Error) tablet lactulose (CEPHULAC) Take 20 g by mouth 0 08/13 Discontinued 20 gram packet 4 (four) times a (Stop Taking at day. Discharge) allopurinoL (ZYLOPRIM) Take 1 tablet (100 30 tablet 0 08/13/ 08/13 Discontinued 100 MG tablet mg total) by mouth 2020 (Stop Taking at daily for 30 days. D ischarge) Active Problems Patient Care Coordination Note [place] RN Stephanie [phone] [place] RN Marianela [phone] [place] Office [phone] Problem Noted Date Acute cystitis without hematuria 05/14/2020 Hyperkalemia 05/14/2020 Lymphedema 04/13/2020 Tremor of unknown origin 03/17/2020 Weakness generalized [...] Added automatically from request for zoe somers [id number] Bipolar disorder, unspecified 10/09/2016 Persistent depressive disorder 10/09/2016 Alcoholic cirrhosis of liver 09/12/2016 Hepatic encephalopathy 06/26/2016 S/P TIPS (transjugular intrahepatic portosystemic shun t) 05/08/2016 Thrombocytopenia 05/04/2016 Cirrhosis of liver not due to alcohol 05/04/2016 Malnutrition 05/04/2016 Resolved Problems Problem Noted Date Resolved Date CAM (acute kidney injury) 04/13/2020 08/13/2020 Confusion 09/01/2019 09/03/2019 Encounters Date Type Specialty Care Team Description 08/15/2020 Patient Outreach Quality [facility] 08/15/2020 Patient Outreach Quality [facility] 08/11/2020 Telephone Consult Cardiology Angela Roper Liver tr ansplant candidate (Primary Dx); MD Meek Preoperative ca rdiovascular examination; Hypertensive he art disease without heart failure; Counseling on h ealth promotion and disease prevention; Dyslipidemia 08/10/2020 Hospital Encounter Cardiology Jennifer Ghosh M D - Misael, 08/13/2020 MD Heriberto 08/09/2020 Emergency Emergency Romero Limon, Generalized abdominal Medicine DO pain (Primary D x) 08/09/2020 Travel 08/08/2020 Emergency Emergency Janelle Watts Generalized abdominal pain (Primary Dx); Medicine MD Emerson Chronic kidney disease, unspecified CKD stage 07/18/2020 Clinical Support Home Health Services 07/04/2020 Hospital Encounter General Internal Romero Limon H epatic encephalopathy (HCC) (Primary Dx); - Medicine DO Acute renal insufficiency 07/07/2020 Heriberto York MD Li, Shuang, MD 07/04/2020 Travel 06/08/2020 Telephone General Internal Lee Ac Medicine RN 06/01/2020 Transcribe Orders Access Cliff Levy Other chorea (Primary F., 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 Hospital Encounter General Internal Romero Limon A cute hepatic encephalopathy (Primary Dx); - Medicine DO Altered level of consciousness; 06/03/2020 York, Hepatorenal syn drome (HCC) MD Davina Louis Shuang, MD 05/30/2020 Travel 05/27/2020 Hospital Encounter Radiology Mana, Visual d istortions of MD Cindy shape and size 05/27/2020 Travel 05/17/2020 Transcribe Orders Access Mana, Visual di stortions of MD Cindy shape and size (Primary Dx) 05/13/2020 Hospital Encounter General Internal Vamsi Johnson H epatic encephalopathy (HCC) (Primary Dx); - Medicine MD Altered mental status, unspecified alter ed mental status type; 05/17/2020 Donya Corbett, Sepsis, due to unspecified organism, unspecified whether acute organ dysfunction present (HCC); Acute UTI (urinary tract infection); Leon Kaplan Acute enceph alopathy; Mikel, DO Hyperkalemia 04/26/2020 Patient Outreach Quality Tashia Salazar, AMARILIS 04/26/2020 Patient Outreach Quality Gaby Johnson, AMARILIS 04/26/2020 Patient Outreach Quality Gaby Johnson, AMARILIS 04/26/2020 Patient Outreach Quality Gaby Johnson, AMARILIS 04/25/2020 Patient Outreach Quality Gaby Johnson, AMARILIS 04/13/2020 Hospital Encounter Nephrology Wild Kovacs Hepat ic encephalopathy (HCC) (Primary Dx); - Tomiwa, DO Lymphedema; 04/21/2020 Leon Kaplan Liver transp lant candidate; DO Mikel Liver cirrhosis secondary to MCFARLANE (HCC); Madeline Tyson Alcoholic cirrh osis of liver without ascites (HCC) MD Hardik 04/13/2020 Travel 03/31/2020 Travel 03/25/2020 Telephone Cardiology Armida, Subhash Anders MA 03/23/2020 Travel 03/22/2020 Patient Outreach Quality Olivia Hill, AMARILIS 03/17/2020 Hospital Encounter General Internal Romero Limon T remor of unknown origin (Primary Dx); - Medicine DO Lactic acidosis; 03/19/2020 Alejandro Pierson, 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 02/23/2020 Patient Outreach Quality [facility] 02/23/2020 Telephone Transplant Padmini Soares MA 02/18/2020 Hospital Encounter General Internal Romie, Alter ed mental status, unspecified altered mental status type (Primary Dx); - Medicine Danyel Frias MD Confusion; 02/21/2020 [place], Cirrhosis of li izabel without ascites, unspecified hepatic cirrhosis type (HCC); MD Heriberto Encephalopathy; Hepatic cirrhos is, unspecified hepatic cirrhosis type, unspecified whether ascites present (HCC); MCFARLANE (nonalcoho lic steatohepatitis); S/P TIPS (trans jugular intrahepatic portosystemic shunt); Awaiting liver transplant; Hepatic encepha lopathy (HCC); Hypokalemia 02/18/2020 Telephone Transplant Jn [place] from [facility] for AMARILIS Castro OLT 02/18/2020 Travel 02/18/2020 Telephone Sleep Medicine Corinne Piedra 02/16/2020 Telephone Sleep Medicine Corinne Piedra 02/16/2020 Transcribe Orders Sleep Medicine Michelle Rascon, Obstr uctive sleep Corinne apnea (adult) (pediatric) (Pr imary Dx) 02/15/2020 Telephone Transplant Erika Brown, Speak with co ord MA 02/15/2020 Telephone Transplant Paramjit Valles Speak to co ordinator 02/08/2020 Telephone Transplant Elham, Sergey-up GRACY Ballard 02/05/2020 Telephone Transplant Cristofer, Jn follow up call AMARILIS Castro 02/04/2020 Telephone Transplant KianaJn noble report to AMARILIS Castro coordinator 02/02/2020 Telephone Transplant DelivethoJn call back AMARILIS Castro 02/01/2020 Telephone Transplant DelivethoJn PEth test (+) AMARILIS Castro 01/26/2020 Telephone Transplant Renae Chadwick MA PT Eval 01/25/2020 Telephone Transplant DelivethoJn Med Refill AMARILIS Castro 01/25/2020 Telephone Transplant DelcanoJn Return Call Matthew, AMARILIS 01/19/2020 Telephone Transplant DelivethoJn update AMARILIS Castro 01/19/2020 Documentation Transplant Jn [place] MELD 17. Rece rt AMARILIS Castro 04/18/20. 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 Rece rt AMARILIS Castro 04/07/20. 01/08/2020 Telephone Transplant Jn [place] Return Call AMARILIS Castro 01/07/2020 Hospital Encounter General Internal Diana Bangura Hepa tic encephalopathy (HCC) (Primary Dx); - Medicine MD Bin Multiple falls 01/11/2020 Pierce Garcia MD Carbajal, Hector, MD 01/07/2020 Travel 01/07/2020 Telephone Transplant Jn [place] Return Call AMARILIS Castro 01/06/2020 Telephone Transplant SukhjinderJn bronson PT report AMARILIS Castro 12/31/2019 Telephone Transplant Renae Chadwick MA Physical The rapy 12/30/2019 Patient Outreach Quality Tashia Salazar RN 12/30/2019 Telephone Transplant Padmini Soares MA 12/30/2019 Telephone General Internal Lee Ac Medicine RN 12/30/2019 Telephone Transplant Jn [place] Return Call Matthew, AMARILIS 12/25/2019 Documentation Transplant Delaiyana Jn MELD 15. Rece rt AMARILIS Castro 03/24/20. 12/24/2019 Documentation Transplant SukhjinderivethrealJn MELD 14. Rece rt AMARILIS Castro 03/23/20. 12/23/2019 Hospital Encounter General Internal Jose, Pierce CK D (chronic kidney disease) stage 3, GFR 30-59 ml/min (HCC) (Primary Dx); - Medicine MD Blayne Cirrhosis of liver not due to alcohol (H CC) 12/25/2019 Aramis Girard MD 12/23/2019 Telephone Transplant Jn [place] unable to do C v CTA Matthew, AMARILIS d/t elevated cr ea and e.GFR 12/22/2019 Orders Only Cardiology Ramandeep Rascon, BENNETT 12/22/2019 Travel 12/21/2019 Documentation Transplant Jn [place] 12/02/19 - Tel emedicine Matthew, AMARILIS with Dr. Garcia 12/21/2019 Documentation Transplant DelaiyanaJn 11/02/19 - Tel emedicine Matthew, RN with Dr. Garcia 12/18/2019 Telephone Transplant Jn [place] HE Matthew, AMARILIS 12/18/2019 Telephone Transplant Erika Brown Spak with management coordinator rd MA 12/18/2019 Documentation Transplant KianaJn noble 12/02/19 - Tel emedicine Matthew, RN with Dr. Garcia 12/15/2019 Travel 12/11/2019 Travel 12/11/2019 Telephone Cardiology Armida, Appointment Martita, BENNETT 12/10/2019 Telephone Cardiology Armida, Appointment Martita, BENNETT 12/10/2019 Telephone Transplant Paramjit Valles Speak to co ordinator 12/09/2019 Telephone Cardiology Nicki Rascon, Appointment BENNETT 11/30/2019 Telephone Transplant Jn [place] telemedicine Matthew, AMARILIS 11/16/2019 Telephone Transplant KianaoJn reporting s/s Matthew, RN 11/10/2019 Telephone Transplant KianaoJn Return Call Matthew, AMARILIS 10/29/2019 Telephone Transplant KianaoJn Knee injection s Matthew, AMARILIS 10/28/2019 Travel 10/28/2019 Telephone Transplant Delcano, Jn Return Call Matthew, RN 10/26/2019 Telephone Transplant Delcano, Jn temporary canc el HH Matthew, RN visits 10/19/2019 Telephone Transplant Delcano, Jn preparation H Matthew, AMARILIS 10/19/2019 Telephone Transplant Delcano, Jn Return Call Matthew, RN 10/14/2019 Telephone Transplant Delcano, Jn Return Call Matthew, AMARILIS 10/14/2019 Documentation Transplant Delcano, Jn MELD 23. Rece rt Matthew, AMARILIS 11/13/19. 10/12/2019 Hospital Encounter General Internal Cheo Peralta onfusion (Primary Dx); - Víctor Alfaro MD Hepatic encephalopathy (HCC) 10/15/2019 Pierce Garcia MD Carbajal, Hector, MD 10/09/2019 Telephone Transplant Delcano, Jn appt schedulin aylin Castro, AMARILIS 10/09/2019 Telephone Transplant Delcano, Jn Med Refill Matthew, AMARILIS 10/09/2019 Orders Only Transplant DelcanoJn Hepatic cirrho sis, unspecified hepatic cirrhosis type, unspecified whether ascites present (HCC) (Primary Dx); Matthew, AMARILIS MCFARLANE (nonalcoho lic steatohepatitis); S/P TIPS (trans jugular intrahepatic portosystemic shunt); Awaiting transp lantation of liver; Cancer screenin g 10/08/2019 Documentation Transplant DelcanoJn Labs only, . Matthew, AMARILIS 10/06/2019 Telephone Transplant Delcano, Jn call return / refill Matthew, RN on meds 10/02/2019 Telephone Transplant DelcanoJn feet/leg cramp s AMARILIS Castro 09/30/2019 Telephone Transplant DelcanoJn blood work and abd Matthew, AMARILIS pain 09/24/2019 Telephone Transplant Delcano, Jn report Matthew, RN 09/17/2019 Telephone Transplant Delcano, Jn Return Call Matthew, RN 09/11/2019 Telephone Transplant DelcanoJn Return Call; f ollow up Matthew, AMARILIS after patient f ell 09/02/2019 Documentation Transplant Delcano, Jn MELD 14. Rece rt Matthew, AMARILIS 12/01/19. 09/01/2019 Hospital Encounter General Internal Lili, Amari Con fusion (Primary Dx); - Víctor Ames Jr., MD Fall, initial encounter; 09/03/2019 [place], Nonintractable headache, unspecified chronicity pattern, unspecified headache type; MD Heriberto Cirrhosis of li izabel without ascites, unspecified hepatic cirrhosis type (HCC) 09/01/2019 Telephone Transplant Jn [place] Return Call. brendon Castro RN [facility]. 08/26/2019 Telephone Transplant Jn [place] c/o lui Castro RN after 08/26/2019 Immunizations Name Administration Dates Next Due FLUCELVAX QUAD PF 05/08/2016 Influenza (IM) Preservative Free 04/21/2018 Pneumococcal Conjugate 13-Valent 05/08/2016 Surgical History Surgery Date Site/Laterality Comments TUBAL LIGATION ESOPHAGOGASTRODUODENOSCOPY N/A Proce dure: (EGD) 6 ESOPHAGOGASTRODU ODENOSCOPY (EGD); Surgeon: Calos Garcia MD; Loc ation: [facility]; Serv ice: Gastroenterology ; Laterality: N/A; TIPS PROCEDURE Oct or Nov ABDOMINAL SURGERY Ileocecectomy (2009), multiple intraabdominal s urgeries in last 20+ yrs (ish cuellar unable to recall detail s) CARDIAC CATHETERIZATION N/A Procedur e: Cv selective 7 coronary angiogr aphy; Surgeon: Matthew Tafoya MD; Location: [facility] ath Lab Invasive Locatio n; Service: Cardiovascular; Laterality: N/A; CARDIAC CATHETERIZATION N/A Procedur e: Cv right heart 7 cath; Surgeon: Matthew Tafoya MD; Loca tion: [facility] Depilatory Painter Invasive Loc ation; Service: Cardiov ascular; Laterality: N/A; ESOPHAGOGASTRODUODENOSCOPY 12/14/2016 N/A Proce dure: (EGD) ESOPHAGOGASTRODU ODENOSCOPY (EGD); Surgeon: Calos Garcia MD; Loc ation: [facility]; Serv ice: Gastroenterology ; Laterality: N/A; CHOLECYSTECTOMY, LAPAROSCOPIC 11/17/2018 Abdomen/N/A Pr ocedure: CHOLECYSTECTOMY, LAPAROSCOPIC; S urgeon: Jody Rios MD; Location: [facility]; Service: General ; Laterality: N/A; CHOLECYSTECTOMY COLON SURGERY HYSTERECTOMY Medical History Medical History Date Comments Liver cirrhosis secondary to MCFARLANE (HCC) Crohn's disease (HCC) since 17 years old Bipolar disorder, unspecified (HCC) 10/09/2016 Pancytopenia (HCC) has had mult blood t ransfusions Obesity CAM (acute kidney injury) (HCC) 08/20/2018 Stroke (HCC) states she was 22 ye ars old Family History Patient is adopted Medical History [...] file Not on file Not on file COVID-19 Exposure Response Date Recorded In the last month, have you been in contact with No / Unsure 08/09/2020 2:43 PM PICKING SUPERVISOR someone who was confirmed or suspected to have Coronavirus / COVID-19? Last Filed Vital Signs Vital Sign Reading Time Taken Comments Blood Pressure 131/65 08/13/2020 11:18 AM PICKING SUPERVISOR Pulse 78 08/13/2020 11:18 AM PICKING SUPERVISOR Temperature 36 C (96.8 F) 08/13/2020 4:23 AM PICKING SUPERVISOR Respiratory Rate 18 08/13/2020 11:18 AM PICKING SUPERVISOR Oxygen Saturation 97% 08/13/2020 11:18 AM PICKING SUPERVISOR Inhaled Oxygen Concentration - - Weight 97 kg (213 lb 12.8 oz) 08/11/2020 9:00 AM PICKING SUPERVISOR Height 149.9 cm (4' 11") 08/11/2020 9:00 AM PICKING SUPERVISOR Body Mass Index 43.18 08/11/2020 9:00 AM PICKING SUPERVISOR Plan of Treatment Health Maintenance Due Date Last Done Comments COVID-19 VACCINE (1 of 2) 1977 COLONOSCOPY SCREENING 2011 SHINGLES VACCINES (#1) 2011 BREAST CANCER SCREENING 10/17/2018 10/17/2016, 10/09/2016, 10/09/2016 CERVICAL CANCER SCREENING 10/08/2019 10/08/2016 INFLUENZA VACCINE 03/12/2020 04/14/2019, 05/01/2018, 2017, Additional history exists Implants Implanted Type Area Paraoptometric Device Shelf Model / Identifier Expiration Serial / Date Lot Stent Endprths Viatorr Tips 8cm 10mm - [id number] Surgical N/A: N/A W L GORE 02/06/2019 [id number] / Implanted: 05/04/2016 at [facility] (Quantity not on file) Stents [id number] / [id number] Procedures Procedure Name Priority Date/Time Associated Comments Diagnosis ESTIMATED GFR Routine 08/13/2020 5:30 Results fo r this AM PICKING SUPERVISOR procedure are i n the results section. LDH Routine 08/13/2020 5:30 Results for this AM PICKING SUPERVISOR procedure are i n the results section. C-REACTIVE PROTEIN Routine 08/13/2020 5:30 Resul ts for this AM PICKING SUPERVISOR procedure are i n the results section. PROTHROMBIN TIME WITH Routine 08/13/2020 5:30 Re sults for this INR AM PICKING SUPERVISOR procedure are i n the results section. PHOSPHORUS LEVEL Routine 08/13/2020 5:30 Results for this AM PICKING SUPERVISOR procedure are i n the results section. MAGNESIUM LEVEL Routine 08/13/2020 5:30 Results for this AM PICKING SUPERVISOR procedure are i n the results section. COMPREHENSIVE METABOLIC Routine 08/13/2020 5:30 Results for this PANEL AM PICKING SUPERVISOR procedure are i n the results section. HC COMPLETE BLD COUNT Routine 08/13/2020 5:30 Re sults for this W/AUTO DIFF AM PICKING SUPERVISOR procedure are i n the results section. [id number] TOTAL Routine 08/13/2020 5:30 Re sults for this AM PICKING SUPERVISOR procedure are i n the results section. URINALYSIS SCREEN AND Routine 08/12/2020 10:00 Re sults for this MICROSCOPY, WITH REFLEX PM PICKING SUPERVISOR proc edure are in TO CULTURE the results section. URINE CULTURE Routine 08/12/2020 10:00 Results fo r this PM PICKING SUPERVISOR procedure are i n the results section. CT CHEST WO CONTRAST Routine 08/12/2020 6:09 Res ults for this PM PICKING SUPERVISOR procedure are i n the results section. BLOOD CULTURE, AEROBIC & Routine 08/12/2020 6:35 Results for this ANAEROBIC AM PICKING SUPERVISOR procedure are i n the results section. AMMONIA LEVEL Routine 08/12/2020 6:30 Results fo r this AM PICKING SUPERVISOR procedure are i n the results section. D-DIMER Routine 08/12/2020 6:30 Results for this AM PICKING SUPERVISOR procedure are i n the results section. PROTHROMBIN TIME WITH Routine 08/12/2020 6:30 Re sults for this INR AM PICKING SUPERVISOR procedure are i n the results section. HC COMPLETE BLD COUNT Routine 08/12/2020 6:30 Re sults for this W/AUTO DIFF AM PICKING SUPERVISOR procedure are i n the results section. BLOOD CULTURE, AEROBIC & Routine 08/12/2020 6:30 Results for this ANAEROBIC AM PICKING SUPERVISOR procedure are i n the results section. ESTIMATED GFR Routine 08/12/2020 4:00 Results fo r this AM PICKING SUPERVISOR procedure are i n the results section. C-REACTIVE PROTEIN Routine 08/12/2020 4:00 Resul ts for this AM PICKING SUPERVISOR procedure are i n the results section. LDH Routine 08/12/2020 4:00 Results for this AM PICKING SUPERVISOR procedure are i n the results section. INTERLEUKIN 6 Routine 08/12/2020 4:00 Results fo r this AM PICKING SUPERVISOR procedure are i n the results section. FERRITIN LEVEL Routine 08/12/2020 4:00 Results f or this AM PICKING SUPERVISOR procedure are i n the results section. PHOSPHORUS LEVEL Routine 08/12/2020 4:00 Results for this AM PICKING SUPERVISOR procedure are i n the results section. MAGNESIUM LEVEL Routine 08/12/2020 4:00 Results for this AM PICKING SUPERVISOR procedure are i n the results section. COMPREHENSIVE METABOLIC Routine 08/12/2020 4:00 Results for this PANEL AM PICKING SUPERVISOR procedure are i n the results section. VENIPUNC NEED PHYS Routine 08/11/2020 4:29 Resul ts for this SKILL,DX OR RX PM PICKING SUPERVISOR procedure are in the results section. XR CHEST 1 VW PORTABLE Routine 08/11/2020 1:56 R esults for this PM PICKING SUPERVISOR procedure are i n the results section. GASTROINTESTINAL PANEL Routine 08/11/2020 10:03 R esults for this AM PICKING SUPERVISOR procedure are i n the results section. HEMOGLOBIN A1C Routine 08/11/2020 5:00 Results f or this AM PICKING SUPERVISOR procedure are i n the results section. PROTHROMBIN TIME WITH Routine 08/11/2020 5:00 Re sults for this INR AM PICKING SUPERVISOR procedure are i n the results section. HC COMPLETE BLD COUNT Routine 08/11/2020 5:00 Re sults for this W/AUTO DIFF AM PICKING SUPERVISOR procedure are i n the results section. ESTIMATED GFR Routine 08/11/2020 4:00 Results fo r this AM PICKING SUPERVISOR procedure are i n the results section. C-REACTIVE PROTEIN Routine 08/11/2020 4:00 Resul ts for this AM PICKING SUPERVISOR procedure are i n the results section. T4 Routine 08/11/2020 4:00 Results for this AM PICKING SUPERVISOR procedure are i n the results section. THYROID STIMULATING Routine 08/11/2020 4:00 Resu lts for this HORMONE AM PICKING SUPERVISOR procedure are i n the results section. PHOSPHORUS LEVEL Routine 08/11/2020 4:00 Results for this AM PICKING SUPERVISOR procedure are i n the results section. MAGNESIUM LEVEL Routine 08/11/2020 4:00 Results for this AM PICKING SUPERVISOR procedure are i n the results section. COMPREHENSIVE METABOLIC Routine 08/11/2020 4:00 Results for this PANEL AM PICKING SUPERVISOR procedure are i n the results section. COVID-19 QUALITATIVE PCR Routine 08/10/2020 8:05 Results for this PM PICKING SUPERVISOR procedure are i n the results section. VENOUS BLOOD GAS STAT 08/09/2020 4:22 Results for this PM PICKING SUPERVISOR procedure are i n the results section. ESTIMATED GFR STAT 08/09/2020 4:12 Results fo r this PM PICKING SUPERVISOR procedure are i n the results section. LACTIC ACID, I-STAT STAT 08/09/2020 4:12 Resu lts for this PM PICKING SUPERVISOR procedure are i n the results section. COMPREHENSIVE METABOLIC STAT 08/09/2020 4:12 Results for this PANEL PM PICKING SUPERVISOR procedure are i n the results section. HC COMPLETE BLD COUNT STAT 08/09/2020 4:12 Re sults for this W/AUTO DIFF PM PICKING SUPERVISOR procedure are i n the results section. CT RENAL STONE PROTOCOL STAT 08/08/2020 6:22 Results for this PM PICKING SUPERVISOR procedure are i n the results section. ECG ED PRELIMINARY Routine 08/08/2020 5:56 Resul ts for this INTERPRETATION PM PICKING SUPERVISOR procedure are in the results section. ECG 12-LEAD STAT 08/08/2020 5:49 Results for this PM PICKING SUPERVISOR procedure are i n the results section. ESTIMATED GFR STAT 08/08/2020 5:35 Results fo r this PM PICKING SUPERVISOR procedure are i n the results section. B NATRIURETIC PEP, STAT 08/08/2020 5:35 Resul ts for this I-STAT PM PICKING SUPERVISOR procedure are i n the results section. TROPONIN, I-STAT STAT 08/08/2020 5:35 Results for this PM PICKING SUPERVISOR procedure are i n the results section. CREATINE KINASE, TOTAL STAT 08/08/2020 5:35 R esults for this (CPK) PM PICKING SUPERVISOR procedure are i n the results section. LACTIC ACID, I-STAT STAT 08/08/2020 5:35 Resu lts for this PM PICKING SUPERVISOR procedure are i n the results section. COMPREHENSIVE METABOLIC STAT 08/08/2020 5:35 Results for this PANEL PM PICKING SUPERVISOR procedure are i n the results section. HC COMPLETE BLD COUNT STAT 08/08/2020 5:35 Re sults for this W/AUTO DIFF PM PICKING SUPERVISOR procedure are i n the results section. ESTIMATED GFR Routine 07/07/2020 3:35 Results fo r this AM PICKING SUPERVISOR procedure are i n the results section. MISCELLANEOUS REFERRAL Routine 07/07/2020 3:35 R esults for this TEST AM PICKING SUPERVISOR procedure are i n the results section. PROTHROMBIN TIME WITH Routine 07/07/2020 3:35 Re sults for this INR AM PICKING SUPERVISOR procedure are i n the results section. PHOSPHORUS LEVEL Routine 07/07/2020 3:35 Results for this AM PICKING SUPERVISOR procedure are i n the results section. MAGNESIUM LEVEL Routine 07/07/2020 3:35 Results for this AM PICKING SUPERVISOR procedure are i n the results section. HEPATIC FUNCTION PANEL Routine 07/07/2020 3:35 R esults for this AM PICKING SUPERVISOR procedure are i n the results section. BASIC METABOLIC PANEL Routine 07/07/2020 3:35 Re sults for this AM PICKING SUPERVISOR procedure are i n the results section. HC COMPLETE BLD COUNT Routine 07/07/2020 3:35 Re sults for this W/AUTO DIFF AM PICKING SUPERVISOR procedure are i n the results section. ESTIMATED GFR Routine 07/06/2020 5:00 Results fo r this AM PICKING SUPERVISOR procedure are i n the results section. MISCELLANEOUS REFERRAL Routine 07/06/2020 5:00 R esults for this TEST AM PICKING SUPERVISOR procedure are i n the results section. PROTHROMBIN TIME WITH Routine 07/06/2020 5:00 Re sults for this INR AM PICKING SUPERVISOR procedure are i n the results section. PHOSPHORUS LEVEL Routine 07/06/2020 5:00 Results for this AM PICKING SUPERVISOR procedure are i n the results section. MAGNESIUM LEVEL Routine 07/06/2020 5:00 Results for this AM PICKING SUPERVISOR procedure are i n the results section. HEPATIC FUNCTION PANEL Routine 07/06/2020 5:00 R esults for this AM PICKING SUPERVISOR procedure are i n the results section. BASIC METABOLIC PANEL Routine 07/06/2020 5:00 Re sults for this AM PICKING SUPERVISOR procedure are i n the results section. HC COMPLETE BLD COUNT Routine 07/06/2020 5:00 Re sults for this W/AUTO DIFF AM PICKING SUPERVISOR procedure are i n the results section. ESTIMATED GFR Routine 07/05/2020 5:15 Results fo r this AM PICKING SUPERVISOR procedure are i n the results section. ALPHA FETOPROTEIN Routine 07/05/2020 5:15 Result s for this AM PICKING SUPERVISOR procedure are i n the results section. ZINC LEVEL, SERUM Routine 07/05/2020 5:15 Result s for this AM PICKING SUPERVISOR procedure are i n the results section. VITAMIN D 25 HYDROXY Routine 07/05/2020 5:15 Res ults for this LEVEL AM PICKING SUPERVISOR procedure are i n the results section. T4 Routine 07/05/2020 5:15 Results for this AM PICKING SUPERVISOR procedure are i n the results section. THYROID STIMULATING Routine 07/05/2020 5:15 Resu lts for this HORMONE AM PICKING SUPERVISOR procedure are i n the results section. HEMOGLOBIN A1C Routine 07/05/2020 5:15 Results f or this AM PICKING SUPERVISOR procedure are i n the results section. PROTHROMBIN TIME WITH Routine 07/05/2020 5:15 Re sults for this INR AM PICKING SUPERVISOR procedure are i n the results section. PHOSPHORUS LEVEL Routine 07/05/2020 5:15 Results for this AM PICKING SUPERVISOR procedure are i n the results section. MAGNESIUM LEVEL Routine 07/05/2020 5:15 Results for this AM PICKING SUPERVISOR procedure are i n the results section. HEPATIC FUNCTION PANEL Routine 07/05/2020 5:15 R esults for this AM PICKING SUPERVISOR procedure are i n the results section. BASIC METABOLIC PANEL Routine 07/05/2020 5:15 Re sults for this AM PICKING SUPERVISOR procedure are i n the results section. HC COMPLETE BLD COUNT Routine 07/05/2020 5:15 Re sults for this W/AUTO DIFF AM PICKING SUPERVISOR procedure are i n the results section. ECG 12-LEAD STAT 07/04/2020 6:50 Results for this PM PICKING SUPERVISOR procedure are i n the results section. LACTIC ACID LEVEL Timed 07/04/2020 6:00 Result s for this PM PICKING SUPERVISOR procedure are i n the results section. LACTIC ACID, I-STAT Timed 07/04/2020 3:07 Resu lts for this PM PICKING SUPERVISOR procedure are i n the results section. URINE DRUGS OF ABUSE STAT 07/04/2020 12:55 Res ults for this SCREEN PM PICKING SUPERVISOR procedure are i n the results section. URINALYSIS STAT 07/04/2020 12:55 Results for this PM PICKING SUPERVISOR procedure are i n the results section. COVID-19 QUALITATIVE PCR STAT 07/04/2020 12:55 Results for this PM PICKING SUPERVISOR procedure are i n the results section. XR CHEST 1 VW STAT 07/04/2020 12:19 Results fo r this PM PICKING SUPERVISOR procedure are i n the results section. CT HEAD WO CONTRAST STAT 07/04/2020 12:19 Resu lts for this PM PICKING SUPERVISOR procedure are i n the results section. AMMONIA LEVEL STAT 07/04/2020 11:29 Results fo r this AM PICKING SUPERVISOR procedure are i n the results section. HC COMPLETE BLD COUNT STAT 07/04/2020 11:29 Re sults for this W/AUTO DIFF AM PICKING SUPERVISOR procedure are i n the results section. ESTIMATED GFR STAT 07/04/2020 11:17 Results fo r this AM PICKING SUPERVISOR procedure are i n the results section. VENOUS BLOOD GAS STAT 07/04/2020 11:17 Results for this AM PICKING SUPERVISOR procedure are i n the results section. LACTIC ACID, I-STAT STAT 07/04/2020 11:17 Resu lts for this AM PICKING SUPERVISOR procedure are i n the results section. COMPREHENSIVE METABOLIC STAT 07/04/2020 11:17 Results for this PANEL AM PICKING SUPERVISOR procedure are i n the results section. ESTIMATED GFR Routine 06/03/2020 5:33 Results fo r this AM CDT procedure are i n the results section. PROTHROMBIN TIME WITH Routine 06/03/2020 5:33 Re sults for this INR AM CDT procedure are i n the results section. PHOSPHORUS LEVEL Routine 06/03/2020 5:33 Results for this AM CDT procedure are i n the results section. MAGNESIUM LEVEL Routine 06/03/2020 5:33 Results for this AM CDT procedure are i n the results section. HEPATIC FUNCTION PANEL Routine 06/03/2020 5:33 R esults for this AM CDT procedure are i n the results section. CBC HEMOGRAM Routine 06/03/2020 5:33 Results for this AM CDT procedure are i n the results section. BASIC METABOLIC PANEL Routine 06/03/2020 5:33 Re sults for this AM CDT procedure are i n the results section. TRANSFUSE RED BLOOD Routine 06/02/2020 7:24 CELLS PM CDT XR HAND 3+ VW LEFT Routine 06/02/2020 6:30 Resul ts for this PM CDT procedure are i n the results section. SMEAR REVIEW Routine 06/02/2020 5:19 Results for this AM CDT procedure are i n the results section. ESTIMATED GFR Routine 06/02/2020 5:19 Results fo r this AM CDT procedure are i n the results section. HC COMPLETE BLD COUNT Routine 06/02/2020 5:19 Re sults for this W/AUTO DIFF AM CDT procedure are i n the results section. PROTHROMBIN TIME WITH Routine 06/02/2020 5:19 Re sults for this INR AM CDT procedure are i n the results section. PHOSPHORUS LEVEL Routine 06/02/2020 5:19 Results for this AM CDT procedure are i n the results section. MAGNESIUM LEVEL Routine 06/02/2020 5:19 Results for this AM CDT procedure are i n the results section. HEPATIC FUNCTION PANEL Routine 06/02/2020 5:19 R esults for this AM CDT procedure are i n the results section. BASIC METABOLIC PANEL Routine 06/02/2020 5:19 Re sults for this AM CDT procedure are i n the results section. VENIPUNC NEED PHYS Routine 06/01/2020 1:55 Resul ts for this SKILL,DX OR RX PM CDT procedure are in the results section. PREPARE RBC Routine 06/01/2020 5:30 Results for this AM CDT procedure are i n the results section. TYPE AND SCREEN Routine 06/01/2020 5:30 Results for this AM CDT procedure are i n the results section. ESTIMATED GFR Routine 06/01/2020 5:30 Results fo r this AM CDT procedure are i n the results section. AMMONIA LEVEL Routine 06/01/2020 5:30 Results fo r this AM CDT procedure are i n the results section. PROTHROMBIN TIME WITH Routine 06/01/2020 5:30 Re sults for this INR AM CDT procedure are i n the results section. PHOSPHORUS LEVEL Routine 06/01/2020 5:30 Results for this AM CDT procedure are i n the results section. MAGNESIUM LEVEL Routine 06/01/2020 5:30 Results for this AM CDT procedure are i n the results section. HEPATIC FUNCTION PANEL Routine 06/01/2020 5:30 R esults for this AM CDT procedure are i n the results section. CBC HEMOGRAM Routine 06/01/2020 5:30 Results for this AM CDT procedure are i n the results section. BASIC METABOLIC PANEL Routine 06/01/2020 5:30 Re sults for this AM CDT procedure are i n the results section. MISCELLANEOUS REFERRAL STAT 05/31/2020 9:09 R esults for this TEST AM CDT procedure are i n the results section. URINE DRUGS OF ABUSE STAT 05/31/2020 9:09 Res ults for this SCREEN AM CDT procedure are i n the results section. LACTIC ACID LEVEL Timed 05/31/2020 4:27 Result s for this AM CDT procedure are i n the results section. ESTIMATED GFR Routine 05/31/2020 4:27 Results fo r this AM CDT procedure are i n the results section. ALPHA FETOPROTEIN Routine 05/31/2020 4:27 Result s for this AM CDT procedure are i n the results section. ZINC LEVEL, SERUM Routine 05/31/2020 4:27 Result s for this AM CDT procedure are i n the results section. VITAMIN D 25 HYDROXY Routine 05/31/2020 4:27 Res ults for this LEVEL AM CDT procedure are i n the results section. T4 Routine 05/31/2020 4:27 Results for this AM CDT procedure are i n the results section. THYROID STIMULATING Routine 05/31/2020 4:27 Resu lts for this HORMONE AM CDT procedure are i n the results section. HEMOGLOBIN A1C Routine 05/31/2020 4:27 Results f or this AM CDT procedure are i n the results section. PROTHROMBIN TIME WITH Routine 05/31/2020 4:27 Re sults for this INR AM CDT procedure are i n the results section. PHOSPHORUS LEVEL Routine 05/31/2020 4:27 Results for this AM CDT procedure are i n the results section. MAGNESIUM LEVEL Routine 05/31/2020 4:27 Results for this AM CDT procedure are i n the results section. HEPATIC FUNCTION PANEL Routine 05/31/2020 4:27 R esults for this AM CDT procedure are i n the results section. BASIC METABOLIC PANEL Routine 05/31/2020 4:27 Re sults for this AM CDT procedure are i n the results section. HC COMPLETE BLD COUNT Routine 05/31/2020 4:27 Re sults for this W/AUTO DIFF AM CDT procedure are i n the results section. LACTIC ACID LEVEL Timed 05/30/2020 11:41 Result s for this PM CDT procedure are i n the results section. CT ABDOMEN PELVIS WO STAT 05/30/2020 8:14 Res ults for this CONTRAST PM CDT procedure are i n the results section. CT HEAD WO CONTRAST STAT 05/30/2020 7:45 Resu lts for this PM CDT procedure are i n the results section. ALCOHOL LEVEL, BLOOD STAT 05/30/2020 6:54 Res ults for this PM CDT procedure are i n the results section. BLOOD CULTURE, AEROBIC & STAT 05/30/2020 6:50 Results for this ANAEROBIC PM CDT procedure are i n the results section. COVID-19 QUALITATIVE PCR STAT 05/30/2020 6:40 Results for this PM CDT procedure are i n the results section. VENOUS BLOOD GAS STAT 05/30/2020 6:35 Results for this PM CDT procedure are i n the results section. AMMONIA LEVEL STAT 05/30/2020 6:35 Results fo r this PM CDT procedure are i n the results section. BLOOD CULTURE, AEROBIC & STAT 05/30/2020 6:35 Results for this ANAEROBIC PM CDT procedure are i n the results section. HC COMPLETE BLD COUNT STAT 05/30/2020 6:20 Re sults for this W/AUTO DIFF PM CDT procedure are i n the results section. ESTIMATED GFR STAT 05/30/2020 6:15 Results fo r this PM CDT procedure are i n the results section. LACTIC ACID, I-STAT STAT 05/30/2020 6:15 Resu lts for this PM CDT procedure are i n the results section. COMPREHENSIVE METABOLIC STAT 05/30/2020 6:15 Results for this PANEL PM CDT procedure are i n the results section. MRI BRAIN & ORBIT W WO Routine 05/27/2020 5:10 Visual distort ions Results for this CONTRAST PM CDT of shape and size procedure are in the results section. URINE DRUGS OF ABUSE Routine 05/17/2020 9:10 Res ults for this SCREEN AM CDT procedure are i n the results section. ESTIMATED GFR Routine 05/17/2020 3:22 Results fo r this AM CDT procedure are i n the results section. PROTHROMBIN TIME WITH Routine 05/17/2020 3:22 Re sults for this INR AM CDT procedure are i n the results section. HC COMPLETE BLD COUNT Routine 05/17/2020 3:22 Re sults for this W/AUTO DIFF AM CDT procedure are i n the results section. HEPATIC FUNCTION PANEL Routine 05/17/2020 3:22 R esults for this AM CDT procedure are i n the results section. ALCOHOL LEVEL, BLOOD Routine 05/17/2020 3:22 Res ults for this AM CDT procedure are i n the results section. BASIC METABOLIC PANEL Routine 05/17/2020 3:22 Re sults for this AM CDT procedure are i n the results section. MISCELLANEOUS REFERRAL Routine 05/17/2020 3:22 R esults for this TEST AM CDT procedure are i n the results section. XR ABDOMEN 1 VW PORTABLE Routine 05/16/2020 6:10 Results for this PM CDT procedure are i n the results section. PROTHROMBIN TIME WITH Routine 05/16/2020 5:10 Re sults for this INR AM CDT procedure are i n the results section. HC COMPLETE BLD COUNT Routine 05/16/2020 5:10 Re sults for this W/AUTO DIFF AM CDT procedure are i n the results section. BASIC METABOLIC PANEL Routine 05/16/2020 1:21 Re sults for this AM CDT procedure are i n the results section. ESTIMATED GFR Routine 05/16/2020 1:21 Results fo r this AM CDT procedure are i n the results section. HEPATIC FUNCTION PANEL Routine 05/16/2020 1:21 R esults for this AM CDT procedure are i n the results section. PHOSPHORUS LEVEL Routine 05/15/2020 5:00 Results for this AM CDT procedure are i n the results section. PROTHROMBIN TIME WITH Routine 05/15/2020 5:00 Re sults for this INR AM CDT procedure are i n the results section. MAGNESIUM LEVEL Routine 05/15/2020 5:00 Results for this AM CDT procedure are i n the results section. ESTIMATED GFR Routine 05/15/2020 5:00 Results fo r this AM CDT procedure are i n the results section. HC COMPLETE BLD COUNT Routine 05/15/2020 5:00 Re sults for this W/AUTO DIFF AM CDT procedure are i n the results section. COMPREHENSIVE METABOLIC Routine 05/15/2020 5:00 Results for this PANEL AM CDT procedure are i n the results section. PROTHROMBIN TIME WITH Routine 05/14/2020 7:46 Re sults for this INR AM CDT procedure are i n the results section. MAGNESIUM LEVEL Routine 05/14/2020 6:05 Results for this AM CDT procedure are i n the results section. PHOSPHORUS LEVEL Routine 05/14/2020 6:05 Results for this AM CDT procedure are i n the results section. HEPATIC FUNCTION PANEL Routine 05/14/2020 6:05 R esults for this AM CDT procedure are i n the results section. ESTIMATED GFR Routine 05/14/2020 6:05 Results fo r this AM CDT procedure are i n the results section. BASIC METABOLIC PANEL Routine 05/14/2020 6:05 Re sults for this AM CDT procedure are i n the results section. AMMONIA LEVEL Routine 05/14/2020 6:05 Results fo r this AM CDT procedure are i n the results section. ESTIMATED GFR STAT 05/13/2020 7:45 Results fo r this PM CDT procedure are i n the results section. BASIC METABOLIC PANEL STAT 05/13/2020 7:45 Re sults for this PM CDT procedure are i n the results section. LACTIC ACID, I-STAT Timed 05/13/2020 7:45 Resu lts for this PM CDT procedure are i n the results section. LACTIC ACID, I-STAT Timed 05/13/2020 6:05 Resu lts for this PM CDT procedure are i n the results section. COVID-19 QUALITATIVE PCR STAT 05/13/2020 6:05 Results for this PM CDT procedure are i n the results section. ECG ED PRELIMINARY Routine 05/13/2020 3:22 Resul ts for this INTERPRETATION PM CDT procedure are in the results section. CA CRITICAL CARE, E/M Routine 05/13/2020 3:22 Re sults for this 30-74 MINUTES PM CDT procedure are in the results section. CT HEAD WO CONTRAST STAT 05/13/2020 2:46 Resu lts for this PM CDT procedure are i n the results section. XR KNEE 3 VW RIGHT STAT 05/13/2020 2:38 Resul ts for this PM CDT procedure are i n the results section. XR CHEST 1 VW PORTABLE STAT 05/13/2020 1:58 R esults for this PM CDT procedure are i n the results section. URINALYSIS STAT 05/13/2020 1:40 Results for this PM CDT procedure are i n the results section. ECG 12-LEAD STAT 05/13/2020 1:23 Results for this PM CDT procedure are i n the results section. ESTIMATED GFR STAT 05/13/2020 1:20 Results fo r this PM CDT procedure are i n the results section. AMMONIA LEVEL STAT 05/13/2020 1:20 Results fo r this PM CDT procedure are i n the results section. B NATRIURETIC PEP, STAT 05/13/2020 1:20 Resul ts for this I-STAT PM CDT procedure are i n the results section. TROPONIN, I-STAT STAT 05/13/2020 1:20 Results for this PM CDT procedure are i n the results section. CREATINE KINASE, TOTAL STAT 05/13/2020 1:20 R esults for this (CPK) PM CDT procedure are i n the results section. LACTIC ACID, I-STAT STAT 05/13/2020 1:20 Resu lts for this PM CDT procedure are i n the results section. COMPREHENSIVE METABOLIC STAT 05/13/2020 1:20 Results for this PANEL PM CDT procedure are i n the results section. PROTHROMBIN TIME WITH STAT 05/13/2020 1:20 Re sults for this INR, I-STAT PM CDT procedure are i n the results section. HC COMPLETE BLD COUNT STAT 05/13/2020 1:20 Re sults for this W/AUTO DIFF PM CDT procedure are i n the results section. BILIRUBIN DIRECT Routine 04/21/2020 5:42 Results for this AM CDT procedure are i n the results section. ESTIMATED GFR Routine 04/21/2020 5:42 Results fo r this AM CDT procedure are i n the results section. COMPREHENSIVE METABOLIC Routine 04/21/2020 5:42 Results for this PANEL AM CDT procedure are i n the results section. HC COMPLETE BLD COUNT Routine 04/21/2020 5:42 Re sults for this W/AUTO DIFF AM CDT procedure are i n the results section. MISCELLANEOUS REFERRAL Routine 04/20/2020 6:10 R esults for this TEST AM CDT procedure are i n the results section. HEPATIC FUNCTION PANEL Routine 04/20/2020 4:25 R esults for this AM CDT procedure are i n the results section. ESTIMATED GFR Routine 04/20/2020 4:25 Results fo r this AM CDT procedure are i n the results section. HC COMPLETE BLD COUNT Routine 04/20/2020 4:25 Re sults for this W/AUTO DIFF AM CDT procedure are i n the results section. BASIC METABOLIC PANEL Routine 04/20/2020 4:25 Re sults for this AM CDT procedure are i n the results section. POC GLUCOSE Routine 04/19/2020 8:25 Results for this PM CDT procedure are i n the results section. ESTIMATED GFR Routine 04/19/2020 4:56 Results fo r this AM CDT procedure are i n the results section. BASIC METABOLIC PANEL Routine 04/19/2020 4:56 Re sults for this AM CDT procedure are i n the results section. XR KNEE 3 VW RIGHT Routine 04/18/2020 5:05 Resul ts for this PM CDT procedure are i n the results section. MAGNESIUM LEVEL Routine 04/18/2020 4:00 Results for this AM CDT procedure are i n the results section. ESTIMATED GFR Routine 04/18/2020 4:00 Results fo r this AM CDT procedure are i n the results section. COMPREHENSIVE METABOLIC Routine 04/18/2020 4:00 Results for this PANEL AM CDT procedure are i n the results section. ESTIMATED GFR Routine 04/17/2020 4:50 Results fo r this AM CDT procedure are i n the results section. BASIC METABOLIC PANEL Routine 04/17/2020 4:50 Re sults for this AM CDT procedure are i n the results section. AMMONIA LEVEL Routine 04/16/2020 4:58 Results fo r this PM CDT procedure are i n the results section. URINE DRUGS OF ABUSE STAT 04/15/2020 1:35 Res ults for this SCREEN PM CDT procedure are i n the results section. ESTIMATED GFR Routine 04/15/2020 12:34 Results fo r this PM CDT procedure are i n the results section. COMPREHENSIVE METABOLIC Routine 04/15/2020 12:34 Results for this PANEL PM CDT procedure are i n the results section. ESTIMATED GFR Routine 04/15/2020 5:49 Results fo r this AM CDT procedure are i n the results section. HC COMPLETE BLD COUNT Routine 04/15/2020 5:49 Re sults for this W/AUTO DIFF AM CDT procedure are i n the results section. COMPREHENSIVE METABOLIC Routine 04/15/2020 5:49 Results for this PANEL AM CDT procedure are i n the results section. ALCOHOL LEVEL, BLOOD STAT 04/14/2020 3:04 Res ults for this PM CDT procedure are i n the results section. COVID-19 QUALITATIVE PCR Routine 04/13/2020 6:04 Results for this PM CDT procedure are i n the results section. CT ABDOMEN PELVIS WO STAT 04/13/2020 3:59 Res ults for this CONTRAST PM CDT procedure are i n the results section. URINALYSIS STAT 04/13/2020 1:20 Results for this PM CDT procedure are i n the results section. ESTIMATED GFR STAT 04/13/2020 12:21 Results fo r this PM CDT procedure are i n the results section. B NATRIURETIC PEP, STAT 04/13/2020 12:21 Resul ts for this I-STAT PM CDT procedure are i n the results section. COMPREHENSIVE METABOLIC STAT 04/13/2020 12:21 Results for this PANEL PM CDT procedure are i n the results section. HC COMPLETE BLD COUNT STAT 04/13/2020 12:21 Re sults for this W/AUTO DIFF PM CDT procedure are i n the results section. ESTIMATED GFR Routine 03/19/2020 4:22 Results fo [...] 5:00 Re sults for this MICROSCOPY, WITH REFLEX PM CDT proc edure are in TO CULTURE the results section. URINE CULTURE Routine 03/18/2020 5:00 Results [...] i n the results section. COVID-19 QUALITATIVE PCR STAT 03/17/2020 6:10 Results for this PM CDT procedure are [...] are i n the results section. COMPREHENSIVE METABOLIC STAT 03/17/2020 4:30 Results for this PANEL PM CDT procedure are i n the results section. HC COMPLETE BLD COUNT STAT 03/17/2020 4:30 Re sults for this W/AUTO DIFF PM CDT procedure are i n the results section. URINALYSIS STAT 03/17/2020 4:30 Results for this PM CDT procedure are i n the results section. TTE STRESS DOBUTAMINE Routine 03/14/2020 11:40 Liver transplan t Results for this (21466) AM CDT candidate procedure are i n [...] the results section. XR ABDOMEN 1 VW PORTABLE Routine 02/19/2020 6:17 Results for this PM CDT procedure are [...] are i n the results section. COMPREHENSIVE METABOLIC STAT 02/18/2020 10:00 Results for this PANEL AM CDT procedure are i n the [...] n the results section. BLOOD CULTURE, AEROBIC & Routine 01/19/2020 3:00 Results for this ANAEROBIC AM CDT procedure are i n the results section. BLOOD CULTURE, AEROBIC & Routine 01/19/2020 3:00 Results for this ANAEROBIC AM CDT procedure are i n [...] are i n the results section. COMPREHENSIVE METABOLIC STAT 01/18/2020 8:56 Results for this PANEL PM CDT procedure [...] i n the results section. CREATININE LEVEL, URINE, Routine 01/09/2020 5:30 Results for this RANDOM AM CDT procedure are i n the results section. SODIUM LEVEL, URINE, Routine 01/09/2020 5:30 Res ults for this RANDOM AM CDT procedure are i n the results section. URINALYSIS SCREEN AND STAT 01/09/2020 5:30 Re sults for this MICROSCOPY, WITH REFLEX AM CDT proc edure are in TO CULTURE the results section. URINE CULTURE STAT 01/09/2020 5:30 Results [...] the results section. XR ABDOMEN 1 VW PORTABLE Routine 01/08/2020 6:04 Results for this PM CDT procedure are [...] n the results section. BLOOD CULTURE, AEROBIC & Routine 01/08/2020 6:10 Results for this ANAEROBIC AM CDT procedure are i n the results section. URINALYSIS, AUTOMATED Routine 01/07/2020 11:03 Re sults for this WITH MICROSCOPY PM CDT procedure ar e in the results section. BLOOD CULTURE, AEROBIC & Routine 01/07/2020 11:03 Results for this ANAEROBIC PM CDT procedure are i n [...] are i n the results section. COMPREHENSIVE METABOLIC STAT 01/07/2020 2:45 Results for this PANEL PM CDT procedure are i n the results section. HC COMPLETE BLD COUNT STAT 01/07/2020 2:45 Re sults for this W/AUTO DIFF PM CDT procedure are i n the results section. CT CARDIAC CALCIUM SCORE Routine 12/25/2019 1:31 Results for this PM CDT procedure are [...] n the results section. BLOOD CULTURE, AEROBIC & Routine 12/23/2019 5:20 Results for this ANAEROBIC PM CDT procedure are i n the results section. BLOOD CULTURE, AEROBIC & Routine 12/23/2019 5:20 Results for this ANAEROBIC PM CDT procedure are i n [...] 10/15/2019 7:45 Results for this CONTRAST AM [employer] procedure are i n the results section. PROTHROMBIN TIME WITH Routine 10/15/2019 5:00 Re sults for this INR AM [employer] procedure are i n the results section. HC COMPLETE BLD COUNT Routine 10/15/2019 5:00 Re sults for this W/AUTO DIFF AM [employer] procedure are i n the results section. ESTIMATED GFR Routine 10/15/2019 4:00 Results fo r this AM [employer] procedure are i n the results section. PHOSPHORUS LEVEL Routine 10/15/2019 4:00 Results for this AM [employer] procedure are i n the results section. MAGNESIUM LEVEL Routine 10/15/2019 4:00 Results for this AM [employer] procedure are i n the results section. HEPATIC FUNCTION PANEL Routine 10/15/2019 4:00 R esults for this AM [employer] procedure are i n the results section. BASIC METABOLIC PANEL Routine 10/15/2019 4:00 Re sults for this AM [employer] procedure are i n the results section. TTE COMPLETE, WO Routine 10/14/2019 3:31 Results for this CONTRAST, W DOPPLER PM [employer] procedur e are in ([id number]) the results section. HEPATIC FUNCTION PANEL Routine 10/14/2019 9:27 R esults for this AM [employer] procedure are i n the results section. POTASSIUM LEVEL Routine 10/14/2019 9:27 Results for this AM [employer] procedure are i n the results section. SMEAR REVIEW Routine 10/14/2019 4:45 Results for this AM [employer] procedure are i n the results section. ESTIMATED GFR Routine 10/14/2019 4:45 Results fo r this AM [employer] procedure are i n the results section. HEMOGLOBIN A1C Routine 10/14/2019 4:45 Results f or this AM [employer] procedure are i n the results section. PROTHROMBIN TIME WITH Routine 10/14/2019 4:45 Re sults for this INR AM [employer] procedure are i n the results section. PHOSPHORUS LEVEL Routine 10/14/2019 4:45 Results for this AM [employer] procedure are i n the results section. MAGNESIUM LEVEL Routine 10/14/2019 4:45 Results for this AM [employer] procedure are i n the results section. HEPATIC FUNCTION PANEL Routine 10/14/2019 4:45 R esults for this AM [employer] procedure are i n the results section. BASIC METABOLIC PANEL Routine 10/14/2019 4:45 Re sults for this AM [employer] procedure are i n the results section. HC COMPLETE BLD COUNT Routine 10/14/2019 4:45 Re sults for this W/AUTO DIFF AM [employer] procedure are i n the results section. PROTHROMBIN TIME WITH Routine 10/13/2019 9:32 Re sults for this INR AM [employer] procedure are i n the results section. HC COMPLETE BLD COUNT Routine 10/13/2019 9:31 Re sults for this W/AUTO DIFF AM [employer] procedure are i n the results section. ESTIMATED GFR Routine 10/13/2019 8:21 Results fo r this AM [employer] procedure are i n the results section. PHOSPHORUS LEVEL Routine 10/13/2019 8:21 Results for this AM [employer] procedure are i n the results section. MAGNESIUM LEVEL Routine 10/13/2019 8:21 Results for this AM [employer] procedure are i n the results section. HEPATIC FUNCTION PANEL Routine 10/13/2019 8:21 R esults for this AM [employer] procedure are i n the results section. BASIC METABOLIC PANEL Routine 10/13/2019 8:21 Re sults for this AM [employer] procedure are i n the results section. PREALBUMIN LEVEL Routine 10/13/2019 8:20 Results for this AM [employer] procedure are i n the results section. STREP SCREEN CULTURE Routine 10/13/2019 2:40 Res ults for this AM [employer] procedure are i n the results section. GROUP A STREP, RAPID Routine 10/13/2019 2:40 Res ults for this ANTIGEN AM [employer] procedure are i n the results section. URINALYSIS STAT 10/13/2019 2:01 Results for this AM [employer] procedure are i n the results section. CT HEAD WO CONTRAST STAT 10/13/2019 1:40 Resu lts for this AM [employer] procedure are i n the results section. BLOOD CULTURE, AEROBIC & STAT 10/13/2019 12:10 Results for this ANAEROBIC AM [employer] procedure are i n the results section. BLOOD CULTURE, AEROBIC & STAT 10/13/2019 12:00 Results for this ANAEROBIC AM [employer] procedure are i n the results section. XR FOOT 3+ VW LEFT STAT 10/12/2019 11:23 Resul ts for this PM [employer] procedure are i n the results section. XR FOOT 3+ VW RIGHT STAT 10/12/2019 11:23 Resu lts for this PM [employer] procedure are i n the results section. XR KNEE 1 OR 2 VW RIGHT STAT 10/12/2019 11:22 Results for this PM [employer] procedure are i n the results section. HC COMPLETE BLD COUNT STAT 10/12/2019 11:00 Re sults for this W/AUTO DIFF PM [employer] procedure are i n the results section. ESTIMATED GFR STAT 10/12/2019 10:50 Results fo r this PM [employer] procedure are i n the results section. HEPATIC FUNCTION PANEL STAT 10/12/2019 10:50 PM [employer] COMPREHENSIVE METABOLIC STAT 10/12/2019 10:50 Results for this PANEL PM [employer] procedure are i n the results section. AMMONIA LEVEL STAT 10/12/2019 10:50 Results fo r this PM [employer] procedure are i n the results section. PROTHROMBIN TIME WITH Routine 10/01/2019 3:25 Re sults for this INR PM [employer] procedure are i n the results section. CBC WITH PLATELET AND Routine 10/01/2019 3:25 Re sults for this DIFFERENTIAL PM [employer] procedure are i n the results section. COMPREHENSIVE METABOLIC Routine 10/01/2019 3:25 Results for this PANEL PM [employer] procedure are i n the results section. ESTIMATED GFR Routine 09/03/2019 8:00 Results fo r this AM [employer] procedure are i n the results section. PROTHROMBIN TIME WITH Routine 09/03/2019 8:00 Re sults for this INR AM [employer] procedure are i n the results section. PHOSPHORUS LEVEL Routine 09/03/2019 8:00 Results for this AM [employer] procedure are i n the results section. MAGNESIUM LEVEL Routine 09/03/2019 8:00 Results for this AM [employer] procedure are i n the results section. HEPATIC FUNCTION PANEL Routine 09/03/2019 8:00 R esults for this AM [employer] procedure are i n the results section. BASIC METABOLIC PANEL Routine 09/03/2019 8:00 Re sults for this AM PICKING SUPERVISOR procedure are i n the results section. HC COMPLETE BLD COUNT Routine 09/03/2019 8:00 Re sults for this W/AUTO DIFF AM PICKING SUPERVISOR procedure are i n the results section. URINE DRUGS OF ABUSE Routine 09/02/2019 8:25 Res ults for this SCREEN PM PICKING SUPERVISOR procedure are i n the results section. US HEPATIC Routine 09/02/2019 6:05 Results for this PM PICKING SUPERVISOR procedure are i n the results section. ESTIMATED GFR Routine 09/02/2019 5:53 Results fo r this AM PICKING SUPERVISOR procedure are i n the results section. ALPHA FETOPROTEIN Routine 09/02/2019 5:53 Result s for this AM PICKING SUPERVISOR procedure are i n the results section. ZINC LEVEL, SERUM Routine 09/02/2019 5:53 Result s for this AM PICKING SUPERVISOR procedure are i n the results section. VITAMIN D 25 HYDROXY Routine 09/02/2019 5:53 Res ults for this LEVEL AM PICKING SUPERVISOR procedure are i n the results section. T4 Routine 09/02/2019 5:53 Results for this AM PICKING SUPERVISOR procedure are i n the results section. THYROID STIMULATING Routine 09/02/2019 5:53 Resu lts for this HORMONE AM PICKING SUPERVISOR procedure are i n the results section. HEMOGLOBIN A1C Routine 09/02/2019 5:53 Results f or this AM PICKING SUPERVISOR procedure are i n the results section. PROTHROMBIN TIME WITH Routine 09/02/2019 5:53 Re sults for this INR AM PICKING SUPERVISOR procedure are i n the results section. PHOSPHORUS LEVEL Routine 09/02/2019 5:53 Results for this AM PICKING SUPERVISOR procedure are i n the results section. MAGNESIUM LEVEL Routine 09/02/2019 5:53 Results for this AM PICKING SUPERVISOR procedure are i n the results section. HEPATIC FUNCTION PANEL Routine 09/02/2019 5:53 R esults for this AM PICKING SUPERVISOR procedure are i n the results section. BASIC METABOLIC PANEL Routine 09/02/2019 5:53 Re sults for this AM PICKING SUPERVISOR procedure are i n the results section. HC COMPLETE BLD COUNT Routine 09/02/2019 5:53 Re sults for this W/AUTO DIFF AM PICKING SUPERVISOR procedure are i n the results section. AMMONIA LEVEL STAT 09/02/2019 5:53 Results fo r this AM PICKING SUPERVISOR procedure are i n the results section. AMMONIA LEVEL STAT 09/01/2019 12:52 Results fo r this PM PICKING SUPERVISOR procedure are i n the results section. CT CERVICAL SPINE WO STAT 09/01/2019 12:11 Res ults for this CONTRAST PM PICKING SUPERVISOR procedure are i n the results section. XR SHOULDER 2+ VW LEFT STAT 09/01/2019 12:11 R esults for this PM PICKING SUPERVISOR procedure are i n the results section. XR KNEE 1 OR 2 VW RIGHT STAT 09/01/2019 12:10 Results for this PM PICKING SUPERVISOR procedure are i n the results section. CT HEAD WO CONTRAST STAT 09/01/2019 12:10 Resu lts for this PM PICKING SUPERVISOR procedure are i n the results section. URINALYSIS STAT 09/01/2019 11:45 Results for this AM PICKING SUPERVISOR procedure are i n the results section. ESTIMATED GFR STAT 09/01/2019 11:33 Results fo r this AM PICKING SUPERVISOR procedure are i n the results section. PROTHROMBIN TIME WITH Routine 09/01/2019 11:33 Re sults for this INR, I-STAT AM PICKING SUPERVISOR procedure are i n the results section. HC COMPLETE BLD COUNT STAT 09/01/2019 11:33 Re sults for this W/AUTO DIFF AM PICKING SUPERVISOR procedure are i n the results section. COMPREHENSIVE METABOLIC STAT 09/01/2019 11:33 Results for this PANEL AM PICKING SUPERVISOR procedure are i n the results section. after 08/26/2019 Results Estimated GFR (08/13/2020 5:30 AM PICKING SUPERVISOR)Only the most recent of54 resultswithin the time period is included. Estimated GFR 41 (A) mL/min/1.73 [facility] Comment: m2 HOSPITAL Catergory Units Interpretation G1 [...] lity Initiative (NKF-KDOQI) published in 2014. Specimen Plasma Performing Organization Address City/State/ZIP Code Phon e Number [facility] DEPARTMENT OF PATHOLOGY AND [address] [place], [place] [phone] GENOMIC [address] [address] Puxp-MBPW-QoG-2 total (08/13/2020 5:30 AM PICKING SUPERVISOR) Rrxz-[id number]-2 Non-reactive Non-reactive [facility] Comment: [facility] This test should not be used for the diagnosis of [facility] SARS-CoV-2/COVID-19 infection. Results are for the detection of total SARS-CoV-2 anti bodies. Reactive results can be indicative of acute or recent infection . Non-reactive results do not preclude SARS-CoV-2 infect ion and should not be used as the sole basis for patient management decis ions. Results must be combined with clinical observations, p atient history, and epidemiological information. The sensitivity of the SARS-CoV-2 Total assay early after infection is unknown. False reactive results may occur due to cross-reactivi ty from pre-existing antibodies or other possible causes. At this time, i t is unknown for how long antibodies to SARS-CoV-2 virus may persist follow ing infection. This test has not been FDA cleared or approved. This test has been authorized by FDA under an EUA for use by authorized laboratories. This test has been authorized only for the presence of total antibodies against SARS-CoV-2, not for any other viruses or patho gens. This test is only authorized for the duration of the d eclaration that circumstances exist justifying the authorization of em ergency use of in vitro diagnostics for detection and/or diagnosis of CO VID-19 under Section 564(b)(1) of the Act, 21 U.S .C. 360bbb-3(b)(1), unless authorization is terminated or revoked sooner. Specimen Serum Performing Organization Address City/State/ZIP Code Phon e Number [facility] DEPARTMENT OF PATHOLOGY AND [address] [place] [phone] GENOMIC MEDICINE [facility] [address] [place] [phone] Prothrombin time with INR (08/13/2020 5:30 AM PICKING SUPERVISOR)Only the most recent of34 resultswithin the time period is included. Prothrombin time 16.7 (H) 11.5 - 14.5 [facility] INR 1.4 [place] Comment: [facility] International Normalized Ratio (INR) is a [facility] monitoring tool for patients who are stable on oral anticoagulant therapy. An INR of 2.0-3.0 is suggested for deep vein thrombosis/pulmonary embolism. Specimen Blood Performing Organization Address City/[facility] Phon e Number [facility] DEPARTMENT OF PATHOLOGY AND [address] [place] [address] [phone] [address] CBC with platelet and differential (08/13/2020 5:30 AM PICKING SUPERVISOR)Only the most recent of46 resultswithin the time period is included. WBC 8.55 4.50 - 11.00 [facility] k/uL HOSPITAL RBC 2.56 (L) 4.20 - 5.50 [facility] m/uL [facility] HGB 8.2 (L) 12.0 - 16.0 [facility] gdL [facility] HCT 24.9 (L) 37.0 - 47.0 % [facility] MCV 97.3 82.0 - 100.0 [facility] MCH 32.0 27.0 - 34.0 pg [facility] MCHC 32.9 31.0 - 37.0 [facility] gdL [facility] RDW - SD 58.3 (H) 37.0 - 55.0 fL [facility] MPV 11.4 8.8 - 13.2 fL [facility] Platelet count 129 (L) 150 - 400 k/uL [facility] Nucleated RBC 0.00 /100 WBC [facility] Neutrophils 84.8 (H) 39.0 - 69.0 % [facility] Lymphocytes 8.3 (L) 25.0 - 45.0 % [facility] Monocytes 6.0 0.0 - 10.0 % [facility] Eosinophils 0.0 0.0 - 5.0 % [facility] Basophils 0.2 0.0 - 1.0 % [facility] Immature granulocytes 0.7Comment: 0.0 - 1.0 % [facility] "Immature HOSPITAL granulocytes" (promyelocytes , myelocytes, metamyelocytes ) Specimen Plasma Performing Organization Address City/[facility] Phon e Number [facility] DEPARTMENT OF PATHOLOGY AND [address] [place] [address] [phone] [address] C-reactive protein (08/13/2020 5:30 AM PICKING SUPERVISOR)Only the most recent of3 results within the time period is included. Pathologist Sig nature CRP 0.71 (H) 0.00 - 0.50 mg/dL [facility] Specimen Plasma Performing Organization Address [facility] Phon e Number [facility] DEPARTMENT OF PATHOLOGY AND [address] [place] [address] [address] Phosphorus level (08/13/2020 5:30 AM PICKING SUPERVISOR)Only the most recent of31 results within the time period is included. Pathologist Sig nature Phosphorus 2.2 (L) 2.4 - 4.5 mg/dL [facility] L Specimen Plasma Performing Organization Address [facility] Phon e Number [facility] DEPARTMENT OF PATHOLOGY AND [address] [place] [phone] Magnesium level (08/13/2020 5:30 AM PICKING SUPERVISOR)Only the most recent of34 resultswithin the time period is included. Pathologist Sig nature Magnesium 2.0 1.6 - 2.6 mg/dL [facility] L Specimen Plasma Performing Organization Address [facility] Phon e Number [facility] DEPARTMENT OF PATHOLOGY AND [address] [place] [address] [address] LDH (08/13/2020 5:30 AM PICKING SUPERVISOR)Only the most recent of2 resultswithin the time period is included. Pathologist Sig nature LDH 166 87 - 225 U/L [facility] Specimen Plasma Performing Organization Address [facility] Phon e Number [facility] DEPARTMENT OF PATHOLOGY AND [address] [place] [phone] Comprehensive metabolic panel (08/13/2020 5:30 AM PICKING SUPERVISOR)Only the most recent of21 resultswithin the time period is included. Sodium 137 135 - 148 [facility] mEq/L [facility] Potassium 4.0 3.5 - 5.0 [facility] mEq/L [facility] Chloride 109 98 - 112 [facility] mEq/L [facility] CO2 18 (L) 24 - 31 mEq/L [facility] Anion gap 10@ANIO 7 - 15 mEq/L [facility] BUN 22 (H) 6 - 20 mg/dL [facility] Creatinine 1.40 (H) 0.50 - 0.90 [facility] mg/dL HOSPITAL Glucose 148 (H) 65 - 99 mg/dL [facility] Calcium 8.8 8.3 - 10.2 [facility] mg/dL [facility] Protein 6.3 6.3 - 8.3 [facility] Comment: g/dL HOSPITAL - 4.6-7.0 g/dL 1 week 4.4-7.6 g/dL 7 months-1year 5.1-7.3 g/dL 1-2 years 5.6-7.5 g/dL >3 years 6.0-8.0 g/dL 18-150 6.3-8.3 g/dL Albumin 3.3 (L) 3.5 - 5.0 [facility] g/dL [facility] A/G ratio 1.1 0.7 - 3.8 [facility] Alkaline phosphatase 96 35 - 104 U/L [facility] AST 23 10 - 35 U/L [facility] ALT 13 5 - 50 U/L [facility] Total bilirubin 0.6 0.0 - 1.2 [facility] mg/dL HOSPITAL Specimen Plasma Performing Organization Address City/State/ZIP Code Phon e Number [facility] DEPARTMENT OF PATHOLOGY AND [address] [place] [phone] GENOMIC MEDICINE [address] [address] Urinalysis screen and microscopy, with reflex to culture (08/12/2020 10:00 PM PICKING SUPERVISOR)Only the most recent of3 resultswithin the time period is included. Pathologist Sig nature Specimen site Midstream [facility] Color, UA Yellow [facility] Appearance, UA Clear [facility] Specific gravity, UA 1.015 1.001 - 1.035 [facility] pH, UA 7.0 5.0 - 8.5 [facility] Protein, UA Negative Negative [facility] Glucose, UA Negative Negative [facility] Ketones, UA Negative Negative [facility] Bilirubin, UA Negative Negative [facility] Blood, UA Negative Negative [facility] Nitrite, UA Negative Negative [facility] Urobilinogen, UA <2.0 <2.0 [facility] Leukocyte esterase, Negative Negative [facility] Epithelial cells, UA 8 /HPF [facility] Round epithelial <1 0 - 1 /HPF [facility] cells, HOSPITAL WBC, UA 1 0 - 4 /HPF [facility] RBC, UA None seen 0 - 5 /HPF [facility] Bacteria, UA Few None seen [facility] Yeast, UA None seen [facility] Yeast with None seen [facility] pseudohyphae, HOSPITAL Hyaline casts, UA 19 /LPF [facility] Specimen Urine Performing Organization Address City/[facility] Phon e Number [facility] DEPARTMENT OF PATHOLOGY AND [address] [place] [address] [phone] [address] Urine culture (08/12/2020 10:00 PM PICKING SUPERVISOR)Only the most recent of3 resultswithin the time period is included. Pathologist Sig nature Urine culture SEE COMMENTComment: [facility] Bacteriuria screen HOSPITAL negative. Specimen Performing Organization Address [facility] Phon e Number [facility] DEPARTMENT OF PATHOLOGY AND [address] [place] [address] [address] [address] Chest Wo Contrast (08/12/2020 6:09 PM PICKING SUPERVISOR) Specimen Narrative Performed At EXAMINATION: CT CHEST WO CONTRAST [facility] CLINICAL HISTORY: COVID-19 TECHNIQUE: Axial images of the chest were obtained w ithout intravenous contrast. The lack of intravenous contrast reduces the sensitivity of the exam and evaluating vasculature. CT imaging was pe rformed with iterative reconstruction technique and/o r automated exposure control to reduce rad iation dose. COMPARISON: 04/25/2018 and most recent chest x-ray IMPRESSION: CHEST: 1. Aorta: The thoracic aorta is nonaneur ysmal 2. Heart: The heart is normal in size. 3. Pericardial Fluid: No pericardial eff usion. 4. Mediastinum: No enlarged nodes or mas s. 5. Airways: Central airways are patent. 6. Lungs: Minimal posterior dependent scarring or atel ectasis. No CT scan findings to suggest COVID-19 pneumo sujatha or acute infiltrate. 7. Pleural Fluid: No pleural effusions. 8. Bones: Osseous structures intact. No destructive bony lesions. 9. Upper Abdomen: Cirrhosis. Portal hypertension with splenomegaly. TIPS shunt. 10. Other Findings: None SUMMARY: 1.No acute findings in the chest. No CT evidence of COVID-19 pneumonia. 2.Cirrhosis, portal hypertension, TIPS s luna and splenomegaly. [facility]-[id number] Procedure Note Interface, Radiology Results Incoming - 08/12/2020 6:20 PM PICKING SUPERVISOR EXAMINATION: CT CHEST WO CONTRAST CLINICAL HISTORY: COVID-19 TECHNIQUE: Axial images of the chest we re obtained without intravenous contrast. The lack of intravenous contrast reduces the sensitivity of the exam and evaluating vasculature. CT imaging was performed with iterative reconstruction technique and/or automated exposure control to reduce rad iation dose. COMPARISON: 04/25/2018 and most recent c hest x-ray IMPRESSION: CHEST: 1. Aorta: The thoracic aorta is nonaneur ysmal 2. Heart: The heart is normal in size. 3. Pericardial Fluid: No pericardial eff usion. 4. Mediastinum: No enlarged nodes or mas s. 5. Airways: Central airways are patent. 6. Lungs: Minimal posterior dependent sc arring or atelectasis. No CT scan findings to suggest COVID-19 pneumonia or acute infiltrate. 7. Pleural Fluid: No pleural effusions. 8. Bones: Osseous structures intact. No destructive bony lesions. 9. Upper Abdomen: Cirrhosis. Portal hype rtension with splenomegaly. TIPS shunt. 10. Other Findings: None SUMMARY: 1.No acute findings in the chest. No CT evidence of COVID-19 pneumonia. 2.Cirrhosis, portal hypertension, TIPS s luna and splenomegaly. [facility]-[id number] Performing Organization Address City/[facility]/ZIP Code Phon e Number [facility] [address] [place] [phone] Blood culture, aerobic & anaerobic (08/12/2020 6:35 AM PICKING SUPERVISOR)Only the most recent of12 resultswithin the time period is included. Blood culture No growth after 5 days of incubation. DANAE CORLEY isolate Comment: HOSPITAL Specimen Information Specimen Source: Blood Specimen Site: Peripheral Hand Right Peripheral Hand L eft Specimen Blood Performing Organization Address City/[facility]/ZIP Code Phon e Number [facility] DEPARTMENT OF PATHOLOGY AND [address] [place] [phone] GENOMIC MEDIC[address] [address] D-dimer (08/12/2020 6:30 AM PICKING SUPERVISOR) D-dimer 3.79 (H) 0.00 - 0.40 [facility] Comment: ug/mL FEU HOSPITAL Units are ug/ml Fibrinogen Equivalent Unit. When combined with low clinical probability, D-dimer r esults of less than 0.5 ug/ml FEU have a good negative pred ictive value in excluding PE or DVT. For D-dimer results greater than 0.5 ug/ml FEU furth er testing is indicated if PE or DVT is suspected clini roxann. Elevated D-dimer results have been reported in DVT, PE , and DIC cases and may indicate the presence of a clot. D-dimer results may be elevated due to old age, pregna ncy, inflammatory diseases, trauma, post-operative states, sepsis, and malignancies. Specimen Blood Performing Organization Address [facility] Phon e Number [facility] DEPARTMENT OF PATHOLOGY AND [address] [place] [phone] Ammonia level (08/12/2020 6:30 AM PICKING SUPERVISOR)Only the most recent of14 resultswithin the time period is included. Pathologist Sig nature Ammonia 23 11 - 51 umol/L [facility] Specimen Blood Performing Organization Address City/[facility] Phon e Number [facility] DEPARTMENT OF PATHOLOGY AND [address] [place] [address] [address] Interleukin 6 (08/12/2020 4:00 AM PICKING SUPERVISOR) Interleukin 6 8.3 0.0 - 10.5 [facility] Comment: pg/mL HOSPITAL This test has not been FDA cleared or approved. This test has been authorized by FDA under an EUA for use by authorized laboratories. This test has been authorized only to assist in identi fying severe inflammatory response, when used as an aid in determin ing the risk of intubation with mechanical ventilation in confirmed CO VID-19 patients. This test is only authorized for the duration of the d eclaration that circumstances exist justifying the authorization of em ergency use of medical devices under Sectio n 564(b)(1) of the Act, 21 U.S.C. 360bbb-3(b)(1), unless the authorization is terminated or revoked sooner. Specimen Plasma Performing Organization Address City/[facility] Code Phon e Number [facility] DEPARTMENT OF PATHOLOGY AND [address] [place] [address] [phone] [address] Ferritin level (08/12/2020 4:00 AM PICKING SUPERVISOR)Only the most recent of2 resultswithin the time period is included. Pathologist Sig nature Ferritin level 64 13 - 150 ng/mL [facility] Specimen Plasma Performing Organization Address [facility] Phon e Number [facility] DEPARTMENT OF PATHOLOGY AND [address] [place] [address] [phone] [address] V[facility]IPUNC NEED PHYS SKILL,DX OR RX (08/11/2020 4:29 PM PICKING SUPERVISOR) Narrative Performed At Samanta Ravi RN 08/11/2020 4: 31 PM Midline Insertion Date/Time: 08/11/2020 4:29 PM Performed by: Tom Castillo RN Authorized by: Heriberto York MD Consent: Consent obtained: Verbal Consent given by: Patient Risks discussed: Arterial puncture, incorrect carolyn cement, nerve damage, bleeding, infection, superficial thrombu s and deep vein thrombus Alternatives discussed: Delayed neal atment and no treatment [place] protocol: Procedure explained and questions ans wered to patient or proxy's satisfaction: yes Relevant documents present and verifi ed: yes Test results available and properly l abeled: yes Imaging studies available: yes Required blood products, implants, de vices, and special equipment available: yes Site/side marked: yes Immediately prior to procedure, a stefan e out was called: yes Patient identity confirmed: Verball y with patient, arm band and hospital-assigned identification number Pre-procedure details: Hand hygiene: Hand hygiene performed prior to insertion Sterile barrier technique: All elemen ts of maximal sterile technique followed Skin preparation: 2% chlorhexidine Skin preparation agent: Dried prior t o procedure Anesthesia (see MAR for exact dosages): Anesthesia method: Local infiltrati on Local anesthetic: Lidocaine 1% w/o epi Route administered: Subcutaneous MidLine Placement Details (Will create a n LDA): Patient position: Flat Vessel Size (mm): 4 Indication: Poor venous access Location: Left basilic Site selection rationale: Preferenc e Device Type: Non-valved Catheter Lumen(s): Double lumen Catheter size: 5 Fr Catheter to vein ratio: 43% MidLine Characteristics: Catheter Brand: Bioflo midline External Catheter Length (cm): 0 Internal Catheter Length (cm): 15 Total Catheter Length (cm): 15 Catheter Lot Number: [id number] Catheter Expiration Date: 05/11/2021 Procedure details: Landmarks identified: yes Ultrasound guidance: yes Sterile ultrasound techniques: Sterile gel and ster ile probe covers were used Number of attempts: 1 Number of MidLine kits used during pr ocedure: 1 Extra guide wire required?: No Purpose of procedure: Midline Place ment Patency/Placement: Flushes without difficulty, flushed with 10 mL normal saline, positive blood return, injection cap pl aced and ultrasound MidLine placed utilizing ultrasound-guided Modified Seldinger Technique: Yes Dressing/Securement: Catheter secur ement device and antimicrobial dressing applied Blood Loss Amount: Less than 20 mL Post-procedure details: Post-procedure: Dressing applied Patient tolerance of procedure: Elan erated well, no immediate complications XR Chest 1 Vw Portable (08/11/2020 1:56 PM PICKING SUPERVISOR)Only the most recent of2 results within the time period is included. Specimen Narrative Performed At EXAMINATION: XR CHEST 1 VW PORTABLE [facility] CLINICAL HISTORY: COVID19 COMPARISON: Most Recent Prior at [facility] IMPRESSION: Heart normal in size. Pulmonary vasculature normal. No focal infiltrates or effusions. Lungs clear. No definite plain film evid ence of COVID-19 pneumonia. Subtle groundglass infiltrates may not be v isible by chest x-ray. CT could be performed. [id number] Procedure Note Interface, Radiology Results Incoming - 08/11/2020 2:05 PM PICKING SUPERVISOR EXAMINATION: XR CHEST 1 VW PORTABLE CLINICAL HISTORY: COVID19 COMPARISON: Most Recent Prior at [facility] IMPRESSION: Heart normal in size. Pulmonary vasculat ure normal. No focal infiltrates or effusions. Lungs clear. No definite plain film evidence of COVID-19 pneumonia. Subtle groundglass infiltrates may not be visible by chest x-ray. CT could be performed. [facility]-[id number] Performing Organization Address City/State/ZIP Code Phon e Number [facility] [address] [place] [address] Gastrointestinal panel (08/11/2020 10:03 AM PICKING SUPERVISOR) Adenovirus 40/41 PCR Not Detected [place] Comment: [facility] Specimen Information HOSPITAL Specimen Source: Stool Specimen Site: Nonpreserved Astrovirus PCR Not Detected [facility] Campylobacter PCR Not Detected [facility] Clostridioides difficile Not Detected [facility] Cryptosporidium PCR Not Detected [facility] Cyclospora cayetanensis Not Detected [facility] Enteroaggregative E coli Not Detected [facility] Entamoeba histolytica Not Detected [facility] Enteroinvasive E coli Not Detected [facility] Enteropathogenic E coli Not Detected [facility] Norovirus PCR Not Detected [facility] Plesiomonas shigelloides Not Detected [facility] Rotavirus PCR Not Detected [facility] Salmonella PCR Not Detected [facility] Sapovirus PCR Not Detected [facility] Enterotoxigenic E coli Not Detected [facility] Shigatoxin producing E Not Detected [facility] E coli O157 PCR Not Reported [facility] Vibrio PCR Not Detected [facility] Vibrio cholerae PCR Not Detected [facility] Yersinia enterocolitica Not Detected [facility] Giardia lamblia PCR Not Detected [facility] Specimen Stool - Nonpreserved Performing Organization Address City/[facility] Phon e Number [facility] DEPARTMENT OF PATHOLOGY AND [address] [place] [address] [phone] [address] Hemoglobin A1c (08/11/2020 5:00 AM PICKING SUPERVISOR)Only the most recent of9 resultswithin the time period is included. Hemoglobin A1C 4.7 4.0 - 5.6 % [facility] Comment: HOSPITAL HbA1c cutoffs for diagnosing diabetes: [...] 1 diabetes. Specimen Blood Performing Organization Address City/State/[facility] Phon e Number [facility] DEPARTMENT OF PATHOLOGY AND [address] [place] [address] [phone] [address] Thyroid stimulating hormone (08/11/2020 4:00 AM PICKING SUPERVISOR)Only the most recent of5 resultswithin the time period is included. Pathologist Sig nature TSH 3.26 0.27 - 4.20 uIU/mL [facility] ITAL Specimen Plasma Performing Organization Address [facility] Phon e Number [facility] DEPARTMENT OF PATHOLOGY AND [address] [place], [place] [address] [address] [address] T4 (08/11/2020 4:00 AM PICKING SUPERVISOR)Only the most recent of5 resultswithin the time period is included. Pathologist Sig nature T4 3.3 (L) 4.5 - 11.7 ug/dL [facility] Specimen Plasma Performing Organization Address [facility] Phon e Number [facility] DEPARTMENT OF PATHOLOGY AND [address] [place] [address] COVID-19 qualitative PCR (08/10/2020 8:05 PM PICKING SUPERVISOR)Only the most recent of6 resultswithin the time period is included. Interpretation Positive results [place] are indicative of [facility] active infection HOSPITAL with 2019-nCoV but do not rule out bacterial infection or coinfection with other viruses. The agent detected may not be the definite cause of disease. COVID-19 qualitative Detected (A) Not-Detected [place] PCR result [facility] COVID-19 qualitative See link below for [place] PCR PDF Lab [facility] ReportComment: HOSPITAL Specimen Nasal swab Performing Organization Address [facility] Phon e Number [facility] DEPARTMENT OF PATHOLOGY AND [address] [place], [place] [id number] [facility] Venous blood gas (08/09/2020 4:22 PM PICKING SUPERVISOR)Only the most recent of3 resultswithin the time period is included. Pathologist Sig nature pH, venous, POC 7.37 7.32 - 7.42 [facility] pCO2, venous, POC 38 (L) 45 - 51 mm Hg [facility] pO2, venous, POC 28 25 - 40 mm Hg [facility] Base excess, venous, -3 (L) -2 - 2 mmol/L [facility] Bicarbonate, venous, 22.2 21.0 - 28.[address] [facility] mmol/L [facility] O2 saturation, 51 40 - 70 % [facility] venous, POC [facility] Specimen Blood Performing Organization Address [facility] Phon e Number DEPARTMENT OF PATHOLOGY AND [address] [place] [address] [address] Lactic acid, I-Stat (08/09/2020 4:12 PM PICKING SUPERVISOR)Only the most recent of10 results within the time period is included. Pathologist Sig nature Lactic acid, I-Stat 1.3 0.5 - 2.2 mmol/L [facility] Specimen Plasma Performing Organization Address [facility] Phon e Number DEPARTMENT OF PATHOLOGY AND [address] [place] [address] Renal Stone Protocol (08/08/2020 6:22 PM PICKING SUPERVISOR) Specimen Narrative Performed At EXAMINATION: CT RENAL STONE PROTOCOL [facility] CLINICAL HISTORY: abdominal pain all ergic to contrast TECHNIQUE: Multiple axial CT images of the abdomen a nd pelvis are obtained without the use of intravenous contrast. Kenyatta nal and sagittal 3-D reconstructions are obtained. CT scans are performed using radiation dose reduction techniques. Technical factors are evaluated and adjusted to ensu re appropriate moderation of exposure. Automated dose management te chnology is applied to adjust radiation exposure whi le achieving a diagnostic quality image. COMPARISON: 05/30/2020 FINDINGS: Abdomen: The evaluation of the solid organs is limited without the use of intravenous contrast. The visualized LOWER LUNG ZONES demonstrates minimal a telectasis at the lower lung bases. The LIVER does not have any solid masses. There is n o intrahepatic biliary dilatation. A TIPS catheter is p resent. The GALLBLADDER is absent.. The PANCREAS does not demonstrate any masses. The SPLEEN is minimally enlarged and measures 13.6 cm. The ADRENAL GLANDS have a unremarkable CT appearan ce. The ABDOMINAL AORTA has no aneurysmal dilatation. Th ere is no retroperitoneal adenopathy. The KIDNEYS do not have any stones or hydronephrosi s. The left kidney has a 4.4 cm cyst seen posteriorly in th e mid pole. CT PELVIS: There is no evidence of any pneumoperitoneum. Stomach and duodenum do not have any wall thickening. Small bowel is not dilat ed. There is no free fluid seen within the abdomen or th e pelvis. The uterus is present. The bladder does not demonstrate any masses. The colonic wall does not have any focal wall thickeni ng. There is no focal inflammatory change. Moderate colo yo fecal retention is present. IMPRESSION: 1. There is no focal bowel obstruction n or any dilated loops of bowel. 2. There are changes of prior hernia rep air with mesh placement. 3. A TIPS catheter is seen within the liver. The liver has a nodular appearance. There are no masses seen on the noncontrast study. 4. The spleen is minimally enlarged. 5. The small bowel and colon do not have any focal inflammatory change. [id number] Procedure Note Hm Interface, Radiology Results Incoming - 08/08/2020 6:34 PM PICKING SUPERVISOR EXAMINATION: CT RENAL STONE PROTOCOL CLINICAL HISTORY: abdominal pain aller gic to contrast TECHNIQUE: Multiple axial CT images of the abdomen and pelvis are obtained without the use of intravenous contrast. Coronal and sagittal 3-D reconstructions are obtained. CT scans are performed using radiation d ose reduction techniques. Technical factors are evaluated and adjusted to ensure appropriate moderation of exposure. Automated dose management technology is applied to adjust radiation exposure while achie ving a diagnostic quality image. COMPARISON: 05/30/2020 FINDINGS: Abdomen: The evaluation of the solid organs is li mited without the use of intravenous contrast. The visualized LOWER LUNG ZONES demonstr ates minimal atelectasis at the lower lung bases. The LIVER does not have any solid monica s. There is no intrahepatic biliary dilatation. A TIPS catheter is present. The GALLBLADDER is absent.. The PANCREAS does not demonstrate any m asses. The SPLEEN is minimally enlarged and adri sures 13.6 cm. The ADRENAL GLANDS have a unremarkable CT appearance. The ABDOMINAL AORTA has no aneurysmal d ilatation. There is no retroperitoneal adenopathy. The KIDNEYS do not have any stones or hydronephrosis. The left kidney has a 4.4 cm cyst seen posteriorly in the mid pole. CT PELVIS: There is no evidence of any pneumoperit oneum. Stomach and duodenum do not have any wall thickening. Small bowel is not dilated. There is no free fluid seen within the abdomen or the pelvis. The uterus is present. The bladder does not demonstrate any masses. The colonic wall does not have any focal wall thickening. There is no focal inflammatory change. Moderate colonic fecal retention is present. IMPRESSION: 1. There is no focal bowel obstruction n or any dilated loops of bowel. 2. There are changes of prior hernia rep air with mesh placement. 3. A TIPS catheter is seen within the li izabel. The liver has a nodular appearance. There are no masses seen on the noncontrast study. 4. The spleen is minimally enlarged. 5. The small bowel and colon do not have any focal inflammatory change. [id number] Performing Organization Address City/State/ZIP Code [facility] e Number [facility] [address] [place] [address] ECG ED Preliminary Interpretation - Not an Order (08/08/2020 5:56 PM PICKING SUPERVISOR)Only the most recent of2 resultswithin the time period is included. Narrative Performed At Janelle Watts MD 08/08/20 7:07 PM ECG ED Preliminary Interpretation - Not an Order Performed by: Janelle Watts MD Authorized by: Janelle Watts MD ECG reviewed by ED Physician in the abse nce of a bow machine operator: yes Interpretation: Interpretation: normal Rate: ECG rate: 70 ECG rate assessment: normal Rhythm: Rhythm: sinus rhythm Ectopy: Ectopy: none QRS: QRS axis: Normal QRS intervals: Normal Conduction: Conduction: normal ST segments: ST segments: Normal T waves: T waves: normal ECG 12 lead (08/08/2020 5:49 PM PICKING SUPERVISOR)Only the most recent of3 resultswithin the time period is included. Pathologist Sig nature Ventricular rate 70 [facility] Atrial rate 70 [facility] CA interval 158 [facility] QRSD interval 80 [facility] QT interval 404 [facility] QTC interval 436 [facility] P axis 1 38 [facility] QRS axis 1 22 [facility] T wave axis 31 [facility] EKG impression Normal sinus [facility] rhythm-Normal ECG-In automated comparison with ECG of 04-JUL-2020 18:50,-No significant change was found- Specimen Narrative Performed At This result has an attachment that is no t available. Performing Organization Address City/State/ZIP Code Phon e Number [facility] MUSE [address] [place] [address] Troponin, I-Stat (08/08/2020 5:35 PM PICKING SUPERVISOR)Only the most recent of3 resultswithin the time period is included. Troponin, I-Stat 0.01 0.00 - 0.08 [facility] Comment: ng/mL [place] 0.09 - 1.49 ng/ml May indicate increa sed risk of acute EMERGENCY CARE coronary syndrome. ANCHORAGE >=1.5 ng/ml Consistent with acute myocardial infarction. The diagnostic value of a single normal or non-diagnos tic result is questionable. Serial samples at 2-6 hour i ntervals are required to rule out acute myocardial injury. Specimen Plasma Performing Organization Address [facility] Phon e Number DEPARTMENT OF PATHOLOGY AND [address] [place] [address] [address] [place] [address] EMERGENCY CARE ANCHORAGE B natriuretic pep, I-Stat (08/08/2020 5:35 PM PICKING SUPERVISOR)Only the most recent of3 resultswithin the time period is included. Pathologist Sig nature BNP, I-Stat 42 0 - 100 pg/mL [facility] Specimen Blood Performing Organization Address [facility] Phon e Number DEPARTMENT OF PATHOLOGY AND [address] [place] [phone] Creatine kinase, total (CPK) (08/08/2020 5:35 PM PICKING SUPERVISOR)Only the most recent of3 resultswithin the time period is included. Pathologist Sig nature Creatine kinase 54 30 - 190 U/L [facility] Specimen Plasma Performing Organization Address City/[facility]/ZIP [facility] Phon e Number DEPARTMENT OF PATHOLOGY AND [address] [place] [phone] [facility] [address] [place] [address] [facility]ENTER Miscellaneous referral test (07/07/2020 3:35 AM PICKING SUPERVISOR)Only the most recent of6 resultswithin the time period is included. Mis test name phosphatidylethanol SHOWN ABOVE Misc test result SEE NOTE SHOWN ABOVE Comment: Phosphatidylethanol (PEth), Whole Blood, Quantitative [facility] test code [id number] PEth 16:0/18:1 (POPEth) <10 ng/mL INTERPRETIVE INFORMATION:Phosphatidylethanol (PEth), W hole Blood Phosphatidylethanol (PEth) homologues Result Interpret ation PEth 16:0/18:1 (POPEth) Less than 10 ng/mL............Not detected Less than 20 ng/mL............Abstinence or light alco hol consumpti on 20 - 200 ng/mL................Moderate alcohol consump tion Greater than 200 ng/mL........Heavy alcohol consumptio n or chronic a lcohol use PEth 16:0/18:2 (PLPEth).......Reference ranges are not well establish ed. (Reference: Jesica Adan and Dante Torres 2018 [...] abstinence over time. PEth results should be interpret ed in the context of the patient's clinical and behavioral histo ry. Patients with advanced liver disease may have falsely elevated PEth concentrations (Mirna MOHAN et al 2018, Alcoholism Clinical & Experimental Research). Test developed and characteristics determined by [facility]. See Compliance Statement B: [employer]/ CS - - - - - - - - - - - - - - - - - - - - - - - - - - - - - - PEth 16:0/18:2 (PLPEth) <10 ng/mL ===== Test performed by: [facility] [address] [place], [place] [address] Specimen Performing Organization Address [facility] Phon e Number [facility] DEPARTMENT OF PATHOLOGY AND [address] [place], [place] [address] 0 [facility] SHOWN ABOVE Hepatic function panel (07/07/2020 3:35 AM PICKING SUPERVISOR)Only the most recent of31 resultswithin the time period is included. Albumin 3.7 3.5 - 5.0 [facility] g/dL [facility] Total bilirubin 1.1 0.0 - 1.2 [facility] mg/dL [facility] Bilirubin direct 0.3 0.0 - 0.3 [facility] mg/dL [facility] Alkaline phosphatase 102 35 - 104 U/L [facility] Protein 6.5 6.3 - 8.3 [facility] Comment: g/dL HOSPITAL - 4.6-7.0 g/dL 1 week 4.4-7.6 g/dL 7 months-1year 5.1-7.3 g/dL 1-2 years 5.6-7.5 g/dL >3 years 6.0-8.0 g/dL 18-150 6.3-8.3 g/dL ALT 18 5 - 50 U/L [facility] AST 36 (H) 10 - 35 U/L [facility] Specimen Plasma Performing Organization Address [facility] Phon e Number [facility] DEPARTMENT OF PATHOLOGY AND [address] [place], [place] [address] GENOMIC MEDICINE [address] [address] Basic metabolic panel (07/07/2020 3:35 AM PICKING SUPERVISOR)Only the most recent of33 results within the time period is included. Pathologist Sig nature Sodium 145 135 - 148 mEq/L [facility] Potassium 4.0 3.5 - 5.0 mEq/L [facility] Chloride 117 (H) 98 - 112 mEq/L [facility] CO2 18 (L) 24 - 31 mEq/L [facility] Anion gap 10@ANIO 7 - 15 mEq/L [facility] BUN 14 6 - 20 mg/dL [facility] Creatinine 1.27 (H) 0.50 - 0.90 mg/dL [facility] Glucose 75 65 - 99 mg/dL [facility] Calcium 9.6 8.3 - 10.2 mg/dL [facility] Specimen Plasma Performing Organization Address [facility] Phon e Number [facility] DEPARTMENT OF PATHOLOGY AND [address] [place] [phone] GENOMIC MEDICINE [address] [address] Zinc level, serum (07/05/2020 5:15 AM PICKING SUPERVISOR)Only the most recent of4 results within the time period is included. Zinc 93.0 60.0 - 120.0 [facility] Comment: [...] absorption. Test developed and characteristics determined by [facility]. See Compliance Statement B: [employer]/ CS Performed By: [facility] [address] [place] [address] Ui Developer Designer: Sahara Foreman MD Specimen Blood Performing Organization Address City/[facility]/ZIP Code Phon e Number [facility] [address] [place] [address] [facility] [address] [place] [address] Alpha fetoprotein (07/05/2020 5:15 AM PICKING SUPERVISOR)Only the most recent of5 results within the time period is included. Alpha fetoprotein 1.1 0.0 - 8.3 [place] Comment: ng/mL [facility] The Delilah 8000 AFP immunoassay was used. HOSPITAL Results obtained with different assay methods or kits should not be used interchangeably and may be differen t. Specimen Serum Performing Organization Address City/[facility] Phon e Number [facility] DEPARTMENT OF PATHOLOGY AND [address] [place] [address] [phone] [address] Vitamin D 25 hydroxy level (07/05/2020 5:15 AM PICKING SUPERVISOR)Only the most recent of4 resultswithin the time period is included. Vitamin D, 8.9 (L) 30.0 - 150.0 [facility] 25-hydroxy Comment: ng/mL HOSPITAL This assay reports [...] alternative methods. Specimen Blood Performing Organization Address City/[facility]/ZIP [facility] Phon e Number [facility] DEPARTMENT OF PATHOLOGY AND [address] [place] [address] [phone] [address] Lactic acid level (07/04/2020 6:00 PM PICKING SUPERVISOR)Only the most recent of5 results within the time period is included. Pathologist Sig nature Lactic acid 1.5 0.5 - 2.2 mmol/L [facility] AL Specimen Plasma Performing Organization Address City/State/ZIP Code Phon e Number [facility] DEPARTMENT OF PATHOLOGY AND [address] [place], [place] [address] GENOMIC MEDICINE [facility] [address] [place] [address] Urinalysis (07/04/2020 12:55 PM PICKING SUPERVISOR)Only the most recent of9 resultswithin the time period is included. Glucose, UA Negative Negative [facility] Bilirubin, UA Negative Negative [facility] Ketones, UA Negative Negative [facility] Specific gravity, 1.015 1.001 - 1.035 [facility] UA [facility] Blood, UA Negative Negative [facility] Comment: [place] COVE Hand Folder Name: trainee EMERGENCY CARE Device ID: [id number] ANCHORAGE pH, UA 5.0 5.0 - 8.5 [facility] Protein, UA Negative Negative [facility] Urobilinogen, UA <2.0 <2.0 [facility] Nitrite, UA Positive (A) Negative [facility] Leukocyte Negative Negative [facility] esterase, UA [facility] Color, UA Yellow [facility] Appearance, UA Cloudy [facility] Specimen Urine Performing Organization Address City/State/[facility] Code Phon e Number DEPARTMENT OF PATHOLOGY AND [address] [place], [place] [address] [facility] [address] [place] [address] EMERGENCY [facility] Urine drugs of abuse screen (07/04/2020 12:55 PM PICKING SUPERVISOR)Only the most recent of10 resultswithin the time period is included. Amphetamine screen, Negative [place] urine [facility] Barbiturate screen, Positive (A) [place] urine [facility] Benzodiazepine Negative [place] screen, urine [facility] Cocaine screen, urine Negative [facility] Methadone metabolite Negative [place] (EDDP), urine [facility] Opiates screen, urine Negative [facility] Oxycodone screen, Negative [place] urine [facility] Phencyclidine screen, Negative [place] urine [facility] Tricyclic screen, Negative [place] urine [facility] Cannabinoid screen, Negative [place] urine Comment: [facility] Drug screen minimum concentration of detectability HOSPITAL [...] requir ed. Specimen Urine Performing Organization Address [facility] Phon e Number [facility] DEPARTMENT OF PATHOLOGY AND [address] [place] [phone] GENOMIC MEDICINE [address] [address] XR Chest 1 Vw (07/04/2020 12:19 PM PICKING SUPERVISOR) Specimen Narrative Performed At EXAMINATION: XR CHEST 1 VW [facility] CLINICAL HISTORY: SOB COMPARISON: Most Recent Prior at [facility] IMPRESSION: Lines: None Lungs and pleura: No consolidations. No pleural effusi on or pneumothorax. Heart and mediastinum: Stable appearance of cardiomedi astinal silhouette. Bones: No suspicious osseous lesions. [id number] Procedure Note Interface, Radiology Results Incoming - 07/04/2020 12:43 PM PICKING SUPERVISOR EXAMINATION: XR CHEST 1 VW CLINICAL HISTORY: SOB COMPARISON: Most Recent Prior at [facility] IMPRESSION: Lines: None Lungs and pleura: No consolidations. No pleural effusion or pneumothorax. Heart and mediastinum: Stable appearance of cardiomediastinal silhouette. Bones: No suspicious osseous lesions. [id number] Performing Organization Address [facility] Phon e Number [facility] [address] [place] [address] Head Wo Contrast (07/04/2020 12:19 PM PICKING SUPERVISOR)Only the most recent of7 results within the time period is included. Specimen Narrative Performed At EXAM: CT HEAD WO CONTRAST [facility] CLINICAL HISTORY: Altered level of consc iousness (LOC) unexplained TECHNIQUE: Noncontrast enhanced images of the brain we re obtained from the skull base to the vertex. Both soft tissue and bon e reconstruction algorithms were performed. CT scans are performed using radiation dose reduction techniques (iterative reconstruction and/or automated exposure co ntrol). Technical factors are evaluated and adjusted to ensure appropria te moderation of exposure. Automated dose energy management specialist nology is applied to adjust radiation exposure while achievi ng a diagnostic quality image. COMPARISON: 05/30/2020. FINDINGS: The gomez-white matter differentiation is preserved and without evidence of acute territorial infarction. There is no evidence for acute intracranial hemorrhage , mass, mass effect, hydrocephalus, or extra-axial fl uid collection. Subtle physiological calcifications seen at the right globus pallidus. Orbits are unremarkable. Small mucosal retention cyst is identified inferiorly within the right maxillary sinus. Remaining paranasal sinuses are clear. Mastoid air cells are normally pneumatize d. Osseous structures are intact. IMPRESSION: No CT evidence for acute intracranial ab normality. [id number] Procedure Note Interface, Radiology Results Incoming - 07/04/2020 12:28 PM PICKING SUPERVISOR EXAM: CT HEAD WO CONTRAST CLINICAL HISTORY: Altered level of consc iousness (LOC) unexplained TECHNIQUE: Noncontrast enhanced images o f the brain were obtained from the skull base to the vertex. Both soft tissue and bone reconstruction algorithms were performed. CT scans are performed using radiation d ose reduction techniques (iterative reconstruction and/or automated exposure control). Technical factors are evaluated and adjusted to ensure appropriate moderation of exposure. Automated dose energy management specialist nology is applied to adjust radiation exposure while achieving a diagnostic quality image. COMPARISON: 05/30/2020. FINDINGS: The gomez-white matter differentiation is preserved and without evidence of acute territorial infarction. There is no evidence for acute intracran ial hemorrhage, mass, mass effect, hydrocephalus, or extra-axial fluid collection. Subtle physiological calcifications seen at the right globus pallidus. Orbits are unremarkable. Small mucosal r etention cyst is identified inferiorly within the right maxillary sinus. Remaining paranasal sinuses are clear. Mastoid air cells are normally pneumatized. Osseous structures are intact. IMPRESSION: No CT evidence for acute intracranial ab normality. [id number] Performing Organization Address City/State/ZIP Code Phon e Number [facility] [address] [place] [address] CBC hemogram (06/03/2020 5:33 AM CDT)Only the most recent of2 resultswithin the time period is included. Pathologist Sig nature WBC 5.86 4.50 - 11.00 k/uL [facility] RBC 2.95 (L) 4.20 - 5.50 m/uL [facility] HGB 8.7 (L) 12.0 - 16.0 g/dL [facility] HCT 26.7 (L) 37.0 - 47.0 % [facility] MCV 90.5 82.0 - 100.0 fL [facility] MCH 29.5 27.0 - 34.0 pg [facility] MCHC 32.6 31.0 - 37.0 g/dL [facility] RDW - SD 58.3 (H) 37.0 - 55.0 fL [facility] MPV 11.3 8.8 - 13.2 fL [facility] Platelet count 103 (L) 150 - 400 k/uL [facility] Nucleated RBC 0.00 /100 WBC [facility] Specimen Plasma Performing Organization Address [facility] Phon e Number [facility] DEPARTMENT OF PATHOLOGY AND [address] [place], [place] [address] GEN[address] [address] Transfuse RBC (06/02/2020 7:24 PM CDT)XR Hand 3+ Vw Left (06/02/2020 6:30 PM CDT) Specimen Narrative Performed At EXAMINATION: XR HAND 3 VW LEFT [facility] CLINICAL HISTORY: Fracture hand COMPARISON: None available. IMPRESSION: 1. The bones are mildly demineralized. 2. Subacute appearing extra-articular fracture of the left fifth metacarpal neck with dorsal apex angulat ion. 3. Faint lucency through the distal radius could repre sent a nondisplaced fracture, correlation with point tenderne ss and advanced imaging as indicated. 4. 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 [id number] Procedure Note Interface, Radiology Results Incoming - 06/02/2020 8:34 PM CDT EXAMINATION: XR HAND 3 VW LEFT CLINICAL HISTORY: Fracture hand COMPARISON: None available. IMPRESSION: 1. The bones are mildly demineralized. 2. Subacute appearing extra-articular fr acture of the left fifth metacarpal neck with dorsal apex angulation. 3. Faint lucency through the distal radi us could represent a nondisplaced fracture, correlation with point tenderness and advanced imaging as indicated. 4. Mild multifocal proximal and distal i nterphalangeal joint osteoarthritis. [id number] Performing Organization Address City/[facility] Phon e Number [facility] [address] [place] [address] Smear review (06/02/2020 5:19 AM CDT)Only the most recent of2 resultswithin the time period is included. Platelet slide review Decreased (A) [facility] Anisocytosis Moderate [facility] Tear drop cells Occasional [facility] Spherocytes Occasional [facility] Ovalocytes Moderate [facility] Specimen Plasma Performing Organization Address City/State/ZIP Code Phon e Number [facility] DEPARTMENT OF PATHOLOGY AND [address] [place], [place] [address] GENOMIC MEDICINE [facility] [address] [place] [address] [facility] NEED PHYS SKILL,DX OR RX (06/01/2020 1:55 PM CDT) Narrative Performed At Jalen Ghosh RN 06/01/2020 1:57 PM Midline Date/Time: 06/01/2020 1:55 PM Performed by: Samanta Ravi RN Authorized by: Jennifer Ghosh MD Consent: Consent obtained: Verbal Consent given by: Patient Risks discussed: Arterial puncture, incorrect carolyn cement, nerve damage, bleeding, infection, pneumothorax, super ficial thrombus and deep vein thrombus [place] protocol: Procedure explained and questions ans wered to patient or proxy's satisfaction: yes Relevant documents present and verifi ed: yes Test results available and properly l abeled: yes Imaging studies available: yes Required blood products, implants, de vices, and special equipment available: yes Site/side marked: yes Immediately prior to procedure, a stefan e out was called: yes Patient identity confirmed: Verball y with patient, arm band, hospital-assigned identification number and provided demographic data Pre-procedure details: Hand hygiene: Hand hygiene performed prior to insertion Sterile barrier technique: All elemen ts of maximal sterile technique followed Skin preparation: 2% chlorhexidine Skin preparation agent: Dried prior t o procedure Anesthesia (see MAR for exact dosages): Anesthesia method: Local infiltrati on Local anesthetic: Lidocaine 1% w/o epi Route administered: Subcutaneous MidLine Placement Details (Will create a n LDA): Patient position: Flat Vessel Size (mm): 4 Indication: Poor venous access Location: Right basilic Device Type: Non-valved Catheter Lumen(s): Double lumen Catheter size: 4 Fr Catheter to vein ratio: 35 MidLine Characteristics: Catheter Brand: BARD PROVENA POWER MIDLINE External Catheter Length (cm): 0 Internal Catheter Length (cm): 11 Total Catheter Length (cm): 11 Catheter Lot Number: [id number] Catheter Expiration Date: 04/11/2021 Procedure details: Landmarks identified: yes Ultrasound guidance: yes Sterile ultrasound techniques: Sterile gel and ster ile probe covers were used Number of attempts: 1 Number of MidLine kits used during pr ocedure: 1 Extra guide wire required?: No Purpose of procedure: Midline Place ment Patency/Placement: Flushes without difficulty, flushed with 10 mL normal saline, positive blood return and injection cap placed MidLine placed utilizing ultrasound-guided Modified Seldinger Technique: Yes Dressing/Securement: Antimicrobial dressing dry a nd intact, catheter securement device and transparent semipe rmeable dressing Blood Loss Amount: Less than 20 mL Post-procedure details: Post-procedure: Dressing applied Patient tolerance of procedure: Elan erated well, no immediate complications Prepare RBC, 1 Units (06/01/2020 5:30 AM CDT) Product name Red Cells AS1 [place] Leukored [facility] Unit number [id number] [facility] Product code [id number] [facility] Dispense status Transfused [facility] Blood expiration date [facility] Blood type code 6200 [facility] Blood type A POSITIVE [facility] Compatibility Compatible [facility] Specimen Plasma Performing Organization Address City/[facility] Phon e Number [facility] DEPARTMENT OF PATHOLOGY AND [address] [place], [place] [address] [address] [address] Type and screen (06/01/2020 5:30 AM CDT) Pathologist Sig nature ABO grouping A [facility] Rh type POS [facility] Antibody screen (gel) NEG [facility] Specimen Blood Performing Organization Address City/[facility] Phon e Number [facility] DEPARTMENT OF PATHOLOGY AND [address] [place], [place] [address] [address] [address] [address] Abdomen Pelvis Wo Contrast (05/30/2020 8:14 PM CDT)Only the most recent of2 resultswithin the time period is included. Specimen Narrative Performed At CT ABDOMEN PELVIS WO CONTRAST [facility] CLINICAL INDICATION: Abd pain unspec ified TECHNIQUE: Multidetector CT of the abdomen and pelvis was performed without intravenous administration of iodinated contra st with multiplanar reformats. CT scans are performed using radiation dose reduction techniques (iterative reconstruction and/or automated exposure co ntrol). Technical factors are evaluated and adjusted to ensure appropria te moderation of exposure. Automated dose energy management specialist nology is applied to adjust radiation exposure while achievi ng a diagnostic quality image. COMPARISON: CT 04/13/2020. FINDINGS: Evaluation of abdominopelvic contents limited due to l ack of IV contrast. Lung bases: Dependent subsegmental ate lectasis/scarring. Liver: Chronic liver disease. TIPS sil ter present. Gallbladder and biliary: The gallbladder is absent. Clips within the gallbladder fossa. Common bile duct is n ot dilated. Pancreas: Normal. Spleen: Enlarged up to 13.5 cm. Gastrointestinal: Large and small bowel are normal i n caliber. Appendix not visualized. Adrenals: Normal. Kidneys and ureters: 1 mm calculus in midpole of rig ht kidney. 2 mm calculus in midpole of left kidney. No ureteral calcul i. No hydronephrosis. Left renal cyst measurin g 4.3 cm, stable. Urinary bladder: Normal. Lymph nodes: No enlarged lymph nodes i n the abdomen or pelvis. Peritoneum: No ascites or free air. Vascular: Mild atherosclerotic changes of the abdomi nal aorta and major branch vessels. Evaluation of vessel lumens is l imited due to lack of IV contrast. Reproductive organs: Uterus is normal. Right adnexal cyst measuring 4.5 x 2.3 cm, stable. Abdominal wall: Ventral hernia mesh repa ir. Bones: Moderate degenerative disc wong ges at L2-L3. IMPRESSION: Cirrhosis, status post TIPS. Mild spleno megaly. Nonobstructive bilateral nephrolithiasis . Stable right adnexal cyst. [facility]-[id number] Procedure Note Interface, Radiology Results Incoming - 05/30/2020 8:[address] ABDOMEN PELVIS WO CONTRAST CLINICAL INDICATION: Abd pain unspecif ied TECHNIQUE: Multidetector CT of the abdom en and pelvis was performed without intravenous administration of iodinated contrast with multiplanar reformats. CT scans are performed using radiation d ose reduction techniques (iterative reconstruction and/or automated exposure control). Technical factors are evaluated and adjusted to ensure appropriate moderation of exposure. Automated dose energy management specialist nology is applied to adjust radiation exposure while achieving a diagnostic quality image. COMPARISON: CT 04/13/2020. FINDINGS: Evaluation of abdominopelvic contents li mited due to lack of IV contrast. Lung bases: Dependent subsegmental atel ectasis/scarring. Liver: Chronic liver disease. TIPS sil ter present. Gallbladder and biliary: The gallbladde r is absent. Clips within the gallbladder fossa. Common bile duct is not dilated. Pancreas: Normal. Spleen: Enlarged up to 13.5 cm. Gastrointestinal: Large and small bowel are normal in caliber. Appendix not visualized. Adrenals: Normal. Kidneys and ureters: 1 mm calculus in m idpole of right kidney. 2 mm calculus in midpole of left kidney. No ureteral calculi. No hydronephrosis. Left renal cyst measuring 4.3 cm, stable. Urinary bladder: Normal. Lymph nodes: No enlarged lymph nodes in the abdomen or pelvis. Peritoneum: No ascites or free air. Vascular: Mild atherosclerotic changes of the abdominal aorta and major branch vessels. Evaluation of vessel lumens is limited due to lack of IV contrast. Reproductive organs: Uterus is normal. Right adnexal cyst measuring 4.5 x 2.3 cm, stable. Abdominal wall: Ventral hernia mesh repa ir. Bones: Moderate degenerative disc stephens es at L2-L3. IMPRESSION: Cirrhosis, status post TIPS. Mild spleno megaly. Nonobstructive bilateral nephrolithiasis . Stable right adnexal cyst. [facility]-[id number] Performing Organization Address City/[facility] Phon e Number [facility] [address] [place] [address] Alcohol level, blood (05/30/2020 6:54 PM CDT)Only the most recent of6 results within the time period is included. Alcohol None Detected mg/dL [facility] Comment: HOSPITAL Normal None Detected Legal Intoxication in [place] 80 mg/dL (0.08%) - Whole Blood Toxic Concentration 200 mg/dL (0.2%) Potentially Fatal 350 - 500 mg/dL (0. 35 - 0.5%) Alcohol percent None Detected % [facility] Specimen Blood Performing Organization Address City/[facility] Phon e Number [facility] DEPARTMENT OF PATHOLOGY AND [address] [place] [phone] GEN[address] [address] MRI Brain & Orbit W Wo Contrast (05/27/2020 5:10 PM CDT) Specimen Narrative Performed At This result has an attachment that is no t available. EXAM: MRI BRAIN & ORBIT W WO CONTRAST [facility] CLINICAL HISTORY: H53.15 Visual distorti ons of shape and size, VISUAL DISTORTION OF SHAPE TECHNIQUE: Multiplanar and multisequence MRI imaging of the brain was obtained with and without contrast. Thin cut imaging through the orbits was also obtained. COMPARISON: CT brain, 05/13/2020; MRI, 03/18/2020 FINDINGS: No diffusion restriction to suggest acute infarct. Parenchymal volume is within normal limits. There is no abnormal parenchymal or leptomeningeal enh ancement. No acute intracranial hemorrhage, mass, hydrocephalus, or extra-axial fluid collection identified. Although this examination is not optimiz ed for the sella, pituitary is grossly normal in appearance. Midline structures are maintained. The major flow voids in the skull base are identified. Orbits are unremarkable. No abnormal T2/ FLAIR hyperintense signal is seen along the bilateral optic nerves nor abnormal optic nerve enhancement. CSF is symmetric within the bilateral optic nerve sheaths. Moderately sized mucosal retention cyst is identified inferiorly within the right m axillary sinus. Remaining paranasal sinuses are clear. Mastoid air cells are normally pneumatized. IMPRESSION: No acute intracranial abnormality identi fied. There is no enhancing lesion in the brain. Orbits are unremarkable in appearance. [id number] Procedure Note Interface, Radiology Results [facility] - 05/27/2020 5:58 PM CDT EXAM: MRI BRAIN & ORBIT W WO CONTRAST CLINICAL HISTORY: H53.15 Visual distorti ons of shape and size, VISUAL DISTORTION OF SHAPE TECHNIQUE: Multiplanar and multisequence MRI imaging of the brain was obtained with and without contrast. Thin cut imaging through the orbits was also obtained. COMPARISON: CT brain, 05/13/2020; MRI, FINDINGS: No diffusion restriction to suggest acut e infarct. Parenchymal volume is within normal limi ts. There is no abnormal parenchymal or lept omeningeal enhancement. No acute intracranial hemorrhage, mass, hydrocephalus, or extra-axial fluid collection identified. Although this examination is not optimiz ed for the sella, pituitary is grossly normal in appearance. Midline structures are maintained. The major flow voids in the skull base are identified. Orbits are unremarkable. No abnormal T2/ FLAIR hyperintense signal is seen along the bilateral optic nerves nor abnormal optic nerve enhancement. CSF is symmetric within the bilateral optic nerve sheaths. Moderately sized mucosal retention cyst is identified inferiorly within the right m axillary sinus. Remaining paranasal sinuses are clear. Mastoid air cells are normally pneumatized. IMPRESSION: No acute intracranial abnormality identi fied. There is no enhancing lesion in the brain. Orbits are unremarkable in appearance. [id number] Performing Organization Address [facility] e Number [facility] [address] [place] [address] XR Abdomen 1 Vw Portable (05/16/2020 6:10 PM CDT)Only the most recent of3 resultswithin the time period is included. Specimen Narrative Performed At EXAMINATION: XR ABDOMEN 1 VW PORTABLE [facility] INDICATION: Abd pain unspecified, generalzied abdomi nal pain rule out constipation COMPARISON: February 19, 2020 IMPRESSION: Nonobstructive bowel gas pattern. Colonic stool burden is within normal limits. Prior ventral hernia repair. TIPS in carolyn ce. Prior cholecystectomy. [id number] Procedure Note Hm Interface, Radiology Results Incoming - 05/16/2020 7:02 PM CDT EXAMINATION: XR ABDOMEN 1 VW PORTABLE INDICATION: Abd pain unspecified, gener alzied abdominal pain rule out constipation COMPARISON: February 19, 2020 IMPRESSION: Nonobstructive bowel gas pattern. Coloni c stool burden is within normal limits. Prior ventral hernia repair. TIPS in carolyn ce. Prior cholecystectomy. [id number] Performing Organization Address [facility] Phon e Number [facility] [address] [place] [address] CRITICAL CARE (05/13/2020 3:22 PM CDT) Narrative Performed At Vamsi Johnson MD 05/13/2020 5: 45 PM Critical Care Performed by: Vamsi Johnson MD Authorized by: Vamsi Johnson MD Critical care provider statement: Critical care time (minutes): 40 Critical care time was exclusive of: Separately b illable procedures and treating other patients Critical care was necessary to treat or prevent imminent or life-threatening deterioration of the following condit ions: Dehydration, sepsis and hepatic failure Critical care was time spent personal ly by me on the following activities: Blood draw for specimens, development of treatment plan with patient or surrogate, evaluation of aspen ent's response to treatment, examination of patient, obtaining histor y from patient or surrogate, ordering and performing treatments and interventions, ordering and review of laboratory studies, ordering and review of radiogra phic studies, pulse oximetry, re-evaluation of patient's con dition, review of old charts, discussions with consultants and discuss ions with primary provider Zion 'yes' if you are taking over critical care for this patient from another provider.: no XR Knee 3 Vw Right (05/13/2020 2:38 PM CDT)Only the most recent of2 results within the time period is included. Specimen Narrative Performed At EXAMINATION: XR KNEE 3 VW RIGHT [facility] CLINICAL HISTORY: Knee pain initial exam COMPARISON: None. IMPRESSION: There is no evidence of right knee fracture, dislocati on, or joint effusion. Bone mineralization is normal. [facility]-[id number] Procedure Note Hm Interface, Radiology Results Incoming - 05/13/2020 2:42 PM CDT EXAMINATION: XR KNEE 3 VW RIGHT CLINICAL HISTORY: Knee pain initial ex am COMPARISON: None. IMPRESSION: There is no evidence of right knee fract ure, dislocation, or joint effusion. Bone mineralization is normal. [facility]-[id number] Performing Organization Address City/State/ZIP Code Phon e Number [facility] [address] [place] [address] Prothrombin time with INR, I-Stat (05/13/2020 1:20 PM CDT)Only the most recent of4 resultswithin the time period is included. POC prothrombin 16.3 (H) 11.0 - 14.5 [place] time sec [facility] POC INR 1.4 [place] Comment: [facility] The International Normalized Ratio (INR) is a therapeu [facility] monitoring tool for patients who are stable on oral EMERGENCY CARE vitamin K antagonist therapy. An INR of 2.0-3.0 is sug gested CENTER for deep vein thrombosis/pulmonary embolism. An INR of 2.5-3.5 (high dose) is suggested for some pa tients with mechanical heart valves) Specimen Blood Performing Organization Address City/State/ZIP Code Phon e Number DEPARTMENT OF PATHOLOGY AND [address] [place] [address] GENOMIC MEDICINE, [facility] [address] [address] EMERG[facility]Y [facility]ARE CENTER Bilirubin direct (04/21/2020 5:42 AM CDT) Pathologist Sig nature Bilirubin direct 0.4 (H) 0.0 - 0.3 mg/dL [facility] Specimen Performing Organization Address City/State/[facility] Phon e Number [facility] DEPARTMENT OF PATHOLOGY AND [address] [place], [place] [address] [facility] [address] [place] [address] POC glucose (04/19/2020 8:25 PM CDT) Pathologist Sig nature POC glucose 128 (H) 65 - 99 mg/dL [facility] Comment: HOSPITAL Hand Folder Name: Barbara العراقي Device ID: [id number] Chartable: [facility] Notified RN Chartable: No Action Needed Specimen Blood Performing Organization Address City/[facility] Phon e Number [facility] DEPARTMENT OF PATHOLOGY AND [address] [place], [place] [address] [address] MRI Brain Wo Contrast (03/18/2020 10:27 PM [...] clear. IMPRESSION: No acute intracranial abnormality identified. [facility]-[id number] Procedure Note Hm Interface, Radiology Results Incoming - 03/18/2020 10:39 [...] IMPRESSION: No acute intracranial abnormality identi fied. [facility]-[id number] Performing Organization Address City/[facility]/ZIP Code Phon e Number [facility] [address] [place] [address] Ionized calcium (03/17/2020 4:30 PM CDT) Pathologist Sig nature pH 7.37 [facility] Ionized calcium 1.08 (L) 1.11 - 1.32 [facility] mmol/L HOSPITAL Specimen Blood Performing Organization Address City/[facility]/ZIP [facility] Phon e Number [facility] DEPARTMENT OF PATHOLOGY AND [address] [place], [place] [address] GEN[address] [address] Amylase level (03/17/2020 4:30 PM CDT)Only the most recent of4 resultswithin the time period is included. Pathologist Sig nature Amylase 78 14 - 97 U/L [facility] Specimen Blood Performing Organization Address City/[facility]/ZIP Code Phon e Number DEPARTMENT OF PATHOLOGY AND [address] [place], [place] [address] GENOMIC MEDICINE, [facility] EMERGENCY DEPARTMENT [address] [place] [address] [facility] Transthoracic Echocardiogram Stress, (w Doppler, w Contrast if needed) (03/14/2020 11:40 AM CDT) Specimen Narrative Performed At [facility] Stress Ech ocardiography Report [address], [place], [place] [address] Stress ECG tracings are availab le in MUSE, EPIC and Frilp All ECG interpretations a re included in this report Pat.Name: BELLA BARRON Pat.ID: [id number] St.Date: 03/14/2020 Refer.MD: ANGELA ROPER MD Exam Time: 10:00:00 AM Study Type:St ress Echo Height: 59in Weight: 200lb BSA: 1.85 m2 Ag e: 1960,59Y Sex: FEMALE BP: 124/62 HR: 62 bpm Sonogrphr: Janelle Mills RDCS, RVT Pat. Stat.:Outpatient Room: [facility] 16 Study Status:Final Echo Event ID:[id number] Order ID: [id number] Reason for Study:Liver transplant candid ate History / Clinical:Edema, Cirrhosis Procedures: Intravenous Definity Contras t, Stress Echo/Dobutamine and Colorflow Doppler Race: C SUMMARY: Overall Stress Interp: Normal Stress ech o. No evidence of ischemia at 84% of maximal predicated HR. Normal dobutamine stress echocardiogram despite achieving only 84% of maximum predicted heart rate[place] [address]. FINDINGS: Resting Findings LV: LV size is [...] 168/72 O2 Sat 96 % Max RPP 92783 Symptoms and Complications: Arrhythmias PVCs Reason for [...] our normal population MEASUREMENTS: 2D Parasternal Long Morton Ao An 1.8 cm LVPWd 0.7 cm [...] PM CDT Stress Echocardiogra phy Report [address], [address], [place], [place] [address] Stress ECG tracings are available in [employer], [employer] and [employer] All ECG interpretations are in cluded in this report Pat.Name: BELLA BARRON Pat.I D: [id number] .Date: 03/14/2020 Refer .MD: ANGELA ROPER MD Exam Time: 10:00:00 AM Study Type:Stress Echo Height: 59in Weigh t: 200lb BSA: 1.85 m2 Age: 11 1960,59Y Sex: FEMALE BP: 124/62 HR: 62 bpm Sonogrphr: Janelle Mills, BIJANCS, RVT Pat. Stat.:Outpatient Room: [facility] 16 Study Status:Final Echo Event ID:[id number] Order ID: [id number] Reason for Study:Liver transplant candid ate History / Clinical:Edema, Cirrhosis Procedures: Intravenous Definity Contras t, Stress Echo/Dobutamine and Colorflow Doppler Race: C SUMMARY: Overall Stress Interp: Normal Stress ech o. No evidence of ischemia at 84% of maximal predicated HR. Normal dobutamine stress echocardiogram despite achieving only 84% of maximum predicted heart rate[place] [address]. FINDINGS: Resting Findings LV: LV size is [...] O2 Sa t 96 % Max RPP 22942 Symptoms and Complications: Arrhythmias PVCs Reason for [...] our normal population MEASUREMENTS: 2D Parasternal Long Morton Ao An 1.8 cm LVPW d 0.7 [...] PM Juni Yao MD Performing Organization Address City/State/ZIP Code Phon e Number [facility] [address] [place] [address] Cv stress test (03/14/2020 11:40 AM CDT) Resting HR 65 [facility] Resting BP 124&62 [facility] Peak MET Achieved 1.0 [facility] Protocol Name DOBUT/ECHO [facility] MUSE Time in Exercise 00:15:00 [facility] Phase Max Systolic BP 182 [facility] Max Diastolic BP 69 [facility] Max Heart Rate 137 [facility] Max Predicted Heart 162 [facility] Rate Target HR Formula (220 - Age)*100% [facility] Test Indication LIVER TRANSPLANT [facility] Arrhy During Ex [facility] ECG Interp Before EX [facility] ECG Interp During Ex [facility] Ex Summary Comment [facility] Overall HR Response [facility] to Exercise Overall BP Response [facility] To Exercise Reason for Protocol Complete [facility] Termination Stress Test -Waveform interpreted [facility] MUSE Impression in report associated with image study. No interpretation is provided as part of this Stress ECG report.-Electronically Signed By Owen FRANKLIN, Scott Wiseman ([id number]), department editor Marisol Hicks ([id number]) on 03/15/2020 5:27:46 AM Specimen Narrative Performed At This result has an attachment that is no t available. Performing Organization Address [facility] Phon e Number [facility] MUSE [address] [place] [address] General sleep study (03/11/2020 9:01 AM CDT) Specimen Narrative Performed At This result has an attachment that is no t available. Partial thromboplastin time, activated (02/18/2020 10:00 AM CDT)Only the most recent of2 resultswithin the time period is included. PTT 37.4 (H) 23.0 - 36.0 [facility] Comment: [facility] PTT therapeutic range for unfractionated heparin is 61.0-112.0 seconds which corresponds to Anti-Xa 0.3-0.7 U/ml. Specimen Blood Performing Organization Address City/[facility] Phon e Number [facility] DEPARTMENT OF PATHOLOGY AND [address] [place] [address] [address] [address] Total iron binding capacity (01/20/2020 12:39 PM CDT) Pathologist Sig nature Iron level 60 37 - 145 ug/dL [facility] Iron binding capacity 321 200 - 400 ug/dL [facility] % Saturation 18.7 15.0 - 38.0 % [facility] Specimen Blood Performing Organization Address City/[facility] Phon e Number [facility] DEPARTMENT OF PATHOLOGY AND [address] [place] [address] [phone] [place] [address] Opiates, s/p, quant (01/19/2020 11:14 AM CDT) 6-acetylmorphine, <2 ng/mL [facility] s/p, quant Comment: INTERPRETIVE INFORMATION: [...] laboratory. Test developed and characteristics determined by [facility]. See Compliance Statement B: [employer]/ CS Codeine, s/p, <2 ng/mL [facility] quant Morphine, s/p, 2 [...] [facility] quant Comment: Performed by [facility], [address] [place], [place] [id number] [email or web address], Arpit Liu MD, Lab. Director Specimen Performing Organization Address City/State/ZIP Code Phon e Number [facility] [address] [place] [address] HM [facility] [address] [facility] [address] Drug kim 9, ser/carolyn, scrn w/rflx to [...] se. Test developed and characteristics determined by [facility]. See Compliance Statement B: [employer]/ CS Performed by [facility], [address] [place] [address] [email or web address], Arpit Liu MD, Lab. Director Specimen Blood Performing Organization Address [facility] Phon e Number [facility] [address] [place] [address] [facility] [address] [place] [address] Urinalysis, automated with microscopy (01/19/2020 2:30 AM CDT)Only the most recent of3 resultswithin the time period is included. Pathologist Sig nature Color, UA Yellow [facility] Appearance, UA Hazy [facility] Specific gravity, UA 1.017 1.001 - 1.035 [facility] pH, UA 5.0 5.0 - 8.5 [facility] Protein, UA Negative Negative [facility] Glucose, UA Negative Negative [facility] Ketones, UA Negative Negative [facility] Bilirubin, UA Negative Negative [facility] Blood, UA Negative Negative [facility] Nitrite, UA Negative Negative [facility] Urobilinogen, UA <2.0 <2.0 [facility] Leukocyte esterase, Negative Negative [facility] Epithelial cells, UA 11 /HPF [facility] WBC, UA 1 0 - 4 /HPF [facility] RBC, UA 1 0 - 5 /HPF [facility] Bacteria, UA Few None seen [facility] Yeast, UA None seen [facility] Yeast with None seen [facility] pseudohyphae, HOSPITAL Specimen Urine Performing Organization Address City/[facility] Phon e Number [facility] DEPARTMENT OF PATHOLOGY AND [address] [place], [place] [address] GENOM[address] [address] Prealbumin level (01/19/2020 2:00 AM CDT)Only the most recent of3 resultswithin the time period is included. Pathologist Sig nature Prealbumin 12 (L) 16 - 32 mg/dL [facility] Specimen Serum Performing Organization Address City/[facility]/ZIP Code Phon e Number [facility] DEPARTMENT OF PATHOLOGY AND [address] [place], [place] [address] GENOMIC MEDICINE [facility] [address] [place] [address] XR Foot 3+ Vw Right (01/18/2020 9:39 PM CDT)Only the most recent of2 results within the time period is included. Specimen Narrative Performed At EXAMINATION: XR FOOT 3 VW RIGHT [facility] CLINICAL HISTORY: fall distal bruisi ng [...] spur. 3. No focal soft tissue abnormality. [facility]-[id number] Procedure Note Interface, Radiology Results Incoming - 01/18/2020 9:44 [...] spur. 3. No focal soft tissue abnormality. [id number] Performing Organization Address City/[facility]/ZIP Code Phon e Number [facility] [address] [place] [address] XR Foot 2 Vw Right (01/10/2020 6:22 [...] of the second thr ough fifth digits. [facility]-[id number] Procedure Note Interface, Radiology Results Incoming - [...] joints of the second through fifth digits. [facility]-[id number] Performing Organization Address City/State/ZIP Code Phon e Number [facility] [address] [place] [address] Sodium level, urine, random (01/09/2020 5:30 AM CDT) Pathologist Sig nature Sodium, urine, random 45 mEq/L [facility] Specimen Urine Performing Organization Address City/[facility] Phon e Number [facility] DEPARTMENT OF PATHOLOGY AND [address] [place] [address] [address] [address] Creatinine level, urine, random (01/09/2020 5:30 AM CDT) Pathologist Sig nature Creatinine, urine, 182 mg/dL [facility] Specimen Urine Performing Organization Address City/[facility] Phon e Number [facility] DEPARTMENT OF PATHOLOGY AND [address] [place] [address] [address] [address] [address] cardiac calcium score (12/25/2019 1:31 PM CDT) Specimen Narrative Performed At [facility] Nuclear Cardi ology and Cardiac CT [address] [facility], [place] [address], [place] [address] CT Calc ium Scoring Report Pat.Name: BELLA BARRON Pat.ID: [id number] .Date: 12/25/2019 Refer.MD: ANGELA ROPER MD Exam Time: 1:10:00 PM Study Type:C T Calcium Scoring Height: 59in Weight: 195lb BSA: 1.83 m2 Ag e: 1960,59Y Sex: FEMALE HR: 152 bpm Nuclear Tech:Vanessa Phillips RT(R)(CT) Pat. Stat.:Inpatient Nuclear Event ID:[id number] Order ID: [id number] Reason for Study:Liver Transplant Candid ate Procedures: [...] gies. FINDINGS: Signed 12/25/2019 2:07:00 PM Araseli Stephens MD Procedure Note Interface, Radiology Results In - 2019 10:28 AM CDT Nuclear Cardiology and Cardiac CT [address] [place] [address] CT Calcium Scoring Report Pat.Name: BELLA BARRON Pat.I D: [id number] St.Date: 12/25/2019 Refer .MD: ANGELA ROPER MD Exam Time: 1:10:00 PM Study Type:CT Calcium Scoring Height: 59in Weigh t: 195lb BSA: 1.83 m2 Age: 11 1960,59Y Sex: FEMALE HR: 152 bpm Nuclear Tech:RT Darrell(R)(CT) Pat. Stat.:Inpatient Nuclear Event ID:[id number] Order ID: [id number] Reason for Study:Liver Transplant Candid ate Procedures: [...] gies. FINDINGS: Signed 12/25/2019 2:07:00 PM Araseli Stephens MD Performing Organization Address City/State/ZIP Code Phon e Number [facility] [address] [place] [address] [facility] NEED PHYS SKILL,DX OR RX (12/24/2019 [...] discussed: No treatmen t and delayed treatment [place] protocol: Procedure explained and questions ans wered to patient or proxy's satisfaction: yes Relevant documents present and verifi ed: yes Test results available and properly l abeled: yes Imaging studies available: yes Required blood products, implants, de vices, and special equipment available: yes Site/side marked: yes Immediately prior to procedure, a stefan garcía out was called: yes Patient identity confirmed: [...] vein ratio: 43% Line Characteristics: Catheter Brand: [employer] midline External Catheter Length (cm): 0 Internal Catheter Length (cm): 12 Total Catheter Length (cm): 12 Catheter Lot Number: [id number] Catheter Expiration Date: 04/11/2021 Procedure Details: Landmarks [...] immediate complications Lipase level (12/23/2019 4:36 PM CDT) Pathologist Sig nature Lipase 80 (H) 13 - 60 U/L [facility] Specimen Blood Performing Organization Address City/State/ZIP Code Phon e Number [facility] DEPARTMENT OF PATHOLOGY AND [address] [place] [phone] GENOMIC MEDICINE [address] [address] Lipid panel (12/23/2019 4:36 PM CDT) Cholesterol 147 <200 mg/dL [facility] Triglycerides 61 <150 mg/dL [facility] HDL cholesterol 47 >40 mg/dL [facility] LDL cholesterol 95Comment: Result <100 mg/dL [place] obtained by direct [facility] LDL measurement [facility] Lipid panel SeeBelow [place] interpretation Comment: [facility] Total Cholesterol (mg/dL) HOSPIT [facility] <200 Desirable [...] (>=200 mg/dL) Specimen Blood Performing Organization Address City/[facility] Phon e Number [facility] DEPARTMENT OF PATHOLOGY AND [address] [place] [address] 0 [place] [phone] POC creatinine (12/23/2019 12:28 PM CDT) POC creatinine 1.9 (H) 0.5 - 0.9 [facility] Comment: mg/dl HOSPITAL Hand Folder Name: Jennifer Gleason Device ID: [id number] Specimen Blood Performing Organization Address [facility] Phon e Number [facility] DEPARTMENT OF PATHOLOGY AND [address] [place], [place] [address] [address] [address] MRI Abdomen W Wo Contrast (10/15/2019 7:45 AM PICKING SUPERVISOR) Specimen Narrative Performed At This result has [...] of HCC. Status post TIPS. No ascites. [facility]-[id number] Procedure Note Interface, Radiology Results Incoming - 10/15/2019 8:12 AM PICKING SUPERVISOR EXAMINATION: MRI ABDOMEN W WO CONTRAST CLINICAL [...] of HCC. Status post TIPS. No ascites. [facility]-[id number] Performing Organization Address City/State/ZIP Code Phon e Number [facility] [address] [place] [address] Transthoracic Echocardiogram Complete, (w Contrast, Strain and 3D if needed) (10/14/2019 3:31 PM PICKING SUPERVISOR) Specimen Narrative Performed At [facility] Echo cardiography Report [address] [facility], [facility] [address], [place] [address] Pat.Name: BELLA BARRON Pat.ID: [id number] .Date: 10/14/2019 Refer.MD: HERIBERTO YORK MD Exam Time: 2:46:00 PM Study Type:R outine Echo Height: 59in Weight: 198lb BSA: 1.84 m2 Ag e: 1960,59Y Sex: FEMALE BP: 100/54 HR: 63 bpm Sonogrphr: Nichole Uribe RDCS; Jean Paul Irvin MD Pat. Stat.:Inpatient Room: [address] Study Status:Final Echo Event ID:[id number] Order ID: [id number] Reason for Study:liver protocol transpla nt listing [...] of 0-5 mmHg. MEASUREMENTS: 2D Parasternal Long Morton Ao An 1.8 cm LVPWd 0.88 cm [...] Radiology Results In - 2019 5:07 PM PICKING SUPERVISOR Echocardiography Report [address] [place] [address] Pat.Name: BELLA BARRON Pat.I D: [id number] .Date: 10/14/2019 Refer .MD: HERIBERTO YORK MD Exam Time: 2:46:00 PM Study Type:Routine Echo Height: 59in Weigh t: 198lb BSA: 1.84 m2 Age: 11 1960,59Y Sex: FEMALE BP: 100/54 HR: 63 bpm Sonogrphr: Nichole Uribe RD; Jean Paul Irvin MD Pat. Stat.:Inpatient Room: [address] Study Status:Final Echo Event ID:[id number] Order ID: [id number] Reason for Study:liver protocol transpla nt listing [...] of 0-5 mmHg. MEASUREMENTS: 2D Parasternal Long Morton Ao An 1.8 cm LVPW d 0.88 [...] PM John Cervantes MD Performing Organization Address City/[facility]/ZIP Code Phon e Number [facility] [address] [place] [address] Potassium level (10/14/2019 9:27 AM PICKING SUPERVISOR) Pathologist [facility] nature Potassium 4.1 3.5 - 5.0 mEq/L [facility] L Specimen Plasma specimen Performing Organization Address City/[facility]/ZIP Code Phon e Number [facility] DEPARTMENT OF PATHOLOGY AND [address] [place], [place] [address] [address] Group A strep, rapid antigen (10/13/2019 2:40 AM PICKING SUPERVISOR) Group A strep, Negative for Group A Streptococcus antigen. [facility] rapid antigen Comment: [place] [facility] result Specimen Information EMERGENCY CARE Specimen Source: Throat CENTER Specimen Site: Not otherwise specified Specimen Throat - Not otherwise specified Performing Organization Address [facility] Phon e Number DEPARTMENT OF PATHOLOGY AND [address] [place], [place] [address] [facility] EMERGENCY CARE [facility] [address] [place] [address] EMERGENCY CARE CENTER Strep screen culture (10/13/2019 2:40 AM PICKING SUPERVISOR) Strep screen No beta hemolytic Streptococci isolated [facility] culture isolate Comment: HOSPITAL Specimen Information Specimen Source: Throat Specimen Site: Not otherwise specified Specimen Throat - Not otherwise specified Performing Organization Address [facility] Phon e Number [facility] DEPARTMENT OF PATHOLOGY AND [address] [place], [place] [address] [facility] MEDICINE [facility] [address] [place] [address] XR Foot 3+ Vw Left (10/12/2019 11:23 PM PICKING SUPERVISOR) Specimen Narrative Performed At Examination: XR FOOT 3 VW LEFT [facility] Clinical History: Foot trauma [place] eg initial exam Comparison: None. Findings: 3 views of the left foot are obtained. No acute fractu re or dislocation is seen. The joint spaces are within normal limits. So ft tissues are unremarkable. IMPRESSION: 1. No acute abnormality identified in th e left foot. [facility]-[id number] Procedure Note Interface, Radiology Results Incoming - 10/12/2019 11:31 PM PICKING SUPERVISOR Examination: XR FOOT 3 VW LEFT Clinical History: Foot trauma [place] g initial exam Comparison: None. Findings: 3 views of the left foot are obtained. N o acute fracture or dislocation is seen. The joint spaces are within normal limits. Soft tissues are unremarkable. IMPRESSION: 1. No acute abnormality identified in th e left foot. [facility]-[id number] Performing Organization Address [facility] e Number [facility] [address] [place] [address] XR Knee 1 Or 2 Vw Right (10/12/2019 11:22 PM PICKING SUPERVISOR)Only the most recent of2 resultswithin the time [...] IMPRESSION: 1. No acute abnormality identified in e right knee. [facility]-[id number] Procedure Note Interface, Radiology Results Incoming - 10/12/2019 11:32 PM PICKING SUPERVISOR Examination: XR KNEE 1 OR 2 VW RIGHT Clinical History: Knee pain initial exa m Comparison: None. Findings: 2 views of the right knee are obtained. No acute fracture or dislocation is seen. The joint spaces are within normal limits. Soft tissues are unremarkable. No joint effusion is seen. IMPRESSION: 1. No acute abnormality identified in e right knee. [facility]-[id number] Performing Organization Address [facility] e Number [facility] [address] [place] [address] [place] Hepatic (09/02/2019 6:05 PM PICKING SUPERVISOR) Specimen Narrative Performed At EXAM: US HEPATIC [facility] CLINICAL DATA: cirrhosis hepatic enc ephalopathy COMPARISON: CT abdomen May 07 9 FINDINGS: A limited abdominal ultrasound was perfo [...] portal vein patent with hepatopedal flow. Prior [facility]-[id number] Procedure Note Hm Interface, Radiology Results Incoming - 09/02/2019 6:29 PM PICKING SUPERVISOR EXAM: US HEPATIC CLINICAL DATA: cirrhosis hepatic encep halopathy COMPARISON: CT abdomen May 07 9 FINDINGS: A limited abdominal ultrasound was perfo [...] portal vein patent with hepatopedal flow. Prior [id number] Performing Organization Address City/State/ZIP Code Phon e Number [facility] [address] [facility] [place] [address] CT Cervical Spine Wo Contrast (09/01/2019 12:11 PM PICKING SUPERVISOR) Specimen Narrative Performed At EXAMINATION: CT CERVICAL [...] Multilevel degenerative changes as detai led above [facility]-[id number] Procedure Note Hm Interface, Radiology Results Incoming - 09/01/2019 12:18 PM PICKING SUPERVISOR EXAMINATION: CT CERVICAL SPINE WO CONTRAST CLINICAL [...] spine. Multilevel degenerative changes as detailed above [facility]-[id number] Performing Organization Address City/State/ZIP Code Phon e Number [facility] [address] [place] [address] XR Shoulder 2+ Vw Left (09/01/2019 12:11 PM PICKING SUPERVISOR) Specimen Narrative Performed At EXAMINATION: XR SHOULDER 2 VW LEFT HM [facility] CLINICAL HISTORY: fall pain COMPARISON: None. IMPRESSION: There is no evidence of acute left shoulder fracture o r dislocation. Mild degenerative changes are present with marginal os teophyte formation. [place]-Sachs deformity is p resent from prior dislocation. [id number] Procedure Note Hm Interface, Radiology Results Incoming - 09/01/2019 12:36 PM PICKING SUPERVISOR EXAMINATION: XR SHOULDER 2 VW LEFT CLINICAL HISTORY: fall pain COMPARISON: None. IMPRESSION: There is no evidence of acute left shoul jessica fracture or dislocation. Mild degenerative changes are present with marginal osteophyte formation. [place]- Sachs deformity is present from prior dislocation. [id number] Performing Organization Address City/State/ZIP Code Phon e Number [facility] [address] [place] [address] after 08/26/2019 Additional Health Concerns Infection Onset Date Last Indicated Resolved Time Coronavirus COVID-19 (Confirmed) 08/10/2020 08/10/2020 Insurance Payer Benefit Plan / Subscriber ID Effective Dates Phone Addre ss Type Group MEDICARE MEDICARE PART A [id number] 2015-Present [place], [place] Medicare AND B MEDICAID MEDICAID [id number] 2015-Present Med icaid Advance Directives For more information, please contact: [phone] Type Date Recorded Patient Portfolio Management Marketing Explanati on Advance Directives, Living Will and Medical Power of Exchange Floor Manager Advance Directives, 04/17/2017 3:25 PM Living Will and Medical Power of Exchange Floor Manager Advance Directives, 04/17/2017 12:00 AM Ad Dir and Compliance Living Will and contract Medical Power of Exchange Floor Manager Advance Directives, 04/17/2017 3:25 PM Living Will and Medical Power of Exchange Floor Manager Advance Directives, 07/31/2019 12:00 AM Ad Direc tive Living Will and Medical Power of Exchange Floor Manager Advance Directives, 05/21/2020 5:19 AM POA 11/2019 Living Will and Medical Power of Exchange Floor Manager Advance Directives, 05/21/2020 5:19 AM ADV 0 01/2020 Living Will and Medical Power of Exchange Floor Manager Code Status Date Activated Date Inactivated Comments Full Code 05/07/2019 9:19 PM 05/08/2019 6:12 PM Code Status decision reached by: Patient
--- OUTSIDE RECORDS SUMMARY | 2020-08-26 14:39 | XMS REPORT ---
:1960 Author Organization [facility] Address [address] [place] [place] [address] Care Team Providers Name Role Phone Díaz Unavailable [phone] PROBLEMS Type Condition ICD9-CM [id number] Onset Condition SNOMED Code Notes Code Code Dates Status Problem Irritable bowel K58.9 Active 14488027 syndrome without diarrhea Problem Restless legs G25.81 Active 32134096 syndrome Problem Seasonal and J30.9 Active 27623811 perennial allergic rhinitis Problem Cirrhosis of liver K74.60 Active 51048404 Problem Kidney stone N20.0 Active 21604645 Problem Thrombocytopenia D69.6 Active 914482760 Problem Bipolar disorder F31.9 Active 87784035 Problem Depression F32.9 Active 458160913 Problem Anxiety F41.9 Active 47644804 Problem Inflammatory bowel K52.9 Active 41086780 disease Problem Migraine G43.909 Active 06571592 Problem Fatigue R53.83 Active 12176887 Problem Gout M10.9 Active 08606278 Problem Chronic pain G89.29 Active 08884735 Problem Incontinence of R15.9 Active 16612682 feces, unspecified fecal incontinence type Problem Adult BMI 37.0-37.9 Z68.37 Active 726841583 kg/sq m Problem Insomnia, G47.00 Active 696225274 unspecified type Problem BMI 40.0-44.9, Z68.41 Active 951523198 adult ALLERGIES Allergen (clinical drug Drug/Non Drug Allergy Reaction Allergy Type Onset Date Status ingredient) documented on EMR promethazine Phenergan(NDC Unknown Drug Allergy Active Code:[address]-92) Iodine(ND Unknown Drug Allergy Active Code:20715-00139) ENCOUNTERS from 1960 to 2020-07-27 Encounter Location Date Provider Diagnosis [facility] [address], [place] [address] IMMUNIZATIONS Vaccine Route Administration Date Status Ketorolac (Toradol) per 15mg ID Intradermal Apr 04, 2020 Adm inistered Vitamin B12 (Cyanocobalamin) Unknown March 04, 2020 Pen ding Vitamin B12 (Cyanocobalamin) IM Intramuscular Jul 16, 2019 Ad ministered Vitamin B12 (Cyanocobalamin) IM Intramuscular Apr 09, 2019 Ad ministered SOCIAL HISTORY Tobacco Use: Social History Observation Description Date Details (start date - stop date) Former Smoker Sex Assigned At : Social History Observation Description Sex Assigned At Unknown PHQ9 Question Answer Notes Little interest or pleasure in doing things Not at all Feeling down, depressed, or hopeless Nearly every day Trouble falling or staying asleep or sleeping too much Nearl y every day Feeling tired or having little energy Not at all Poor appetite or overeating Several days Feeling bad about yourself, or that you are a failure, Sever al days or have let yourself or your family down Trouble concentrating on things, such as reading the More th an half the days newspaper or watching television Moving or speaking so slowly that other people could Not at all have noticed; or the opposite, being so fidgety or restless that you have been moving around a lot more than usual Total Score 10 Interpretation Moderate Depression Thoughts that you would be better off or of Not at all hurting yourself in some way Alcohol Screen Question Answer Notes Did you have a drink containing alcohol in the past year? No Points 0 Interpretation Negative Tobacco Use/Smoking Question Answer Notes Are you a former smoker REASON FOR REFERRAL No Information VITAL SIGNS No information MEDICATIONS Medication SIG (Take, Route, Notes Start Date End Date Status Frequency, Duration) SM Vitamin B1 100 MG 1 tablet Orally Once a 16 Jul, 2020 1 5 Aug, Active day for 30 day(s) 2020 Zinc Sulfate 220 (50 TAKE 1 CAPSULE (220 MG Active Zn) MG TOTAL) BY MOUTH 2 (TWO) TIMES A DAY. Oral Rexulti 2 MG TAKE 1 TABLET BY MOUTH Active ONCE A DAY Oral Ultram 50 MG 1 tablet as needed Acti ve Orally every 6 hrs Albuterol Sulfate HFA 2 puffs as needed Aug, Not-Taking 108 (90 Base) MCG/ACT Inhalation every 6 hrs PRN Shortness or breath, cough and wheezing for 30 days Indomethacin 50 MG 1 capsule with food or Active milk Orally Twice a day for 30 day(s) Gabapentin 100 MG 2 cap in AM 3 caps PM Active Orally Three times a day Topiramate 50 MG TAKE 1 TABLET BY MOUTH Active AT BEDTIME Oral Zofran ODT 4 MG 1 tablet on the tongue Active and allow to dissolve Orally every 8 hrs Pantoprazole Sodium 40 1 tablet Orally Once a Active MG day Seroquel 50 MG 1 tablet Orally Once a Active day Sodium Bicarbonate 650 TAKE 2 TABLETS BY MOUTH Not-Taking MG TWICE DAILY FOR 14 DAYS Oral for 14 ProAir HFA 108 (90 INHALE 2 PUFFS Not-Taking Base) MCG/ACT NEEDED EVERY 6 HOURS NEEDED FOR SHORTNESS OF BREATH ,COUGH,WHEEZING for 30 Furosemide 40 MG 1 tablet Orally Once a Active day Xifaxan 550 MG 1 tablet Orally Twice a Active day Sumatriptan Succinate TAKE AT ONSET OF Active 100 MG HEADACHE. MAY REPEAT IN 2 HOURS IF NO RELIEF. MAXIMUM OF 2 IN 24 HOURS. Oral Folic Acid 1 MG 1 tablet Orally Once a Not-Taking day Allopurinol 100 MG 1 tablet Orally Once a Active day for 30 day(s) Cyanocobalamin 1000 INJECT 1 ML IN MUSLCE Active MCG/ML ONCE A MONTH EVERY 4 WEEKS INJECTION INJECTION 30 DAYS for 29 Indomethacin 50 MG TAKE 1 CAPSULE BY MOUTH Active TWICE A DAY WITH FOOD OR MILK for 30 Spironolactone 25 MG 1 tablet with food Active Orally Once a day BD Disp Needle 25G X 1 needle/syring with Jul, Active 1" B12 injection intramuscularly every 2 weeks for 90 days Syringe 2-3 ML 3 ML 1 syringe/needle with Active B12 injection intramuscularly every 2 weeks for 30 days PROCEDURES No Information RESULTS No Results REASON FOR VISIT Refill request MEDICAL (GENERAL) HISTORY Type Description Date Medical History Fatigue Medical History Cirrhosis of liver Medical History Seasonal and perennial allergic rhinitis Medical History Bipolar disorder Medical History Kidney stone Medical History Depression Medical History Anxiety Medical History Irritable bowel syndrome without diarrhe a Medical History Restless legs syndrome Medical History Chronic pain Medical History Thrombocytopenia Medical History Migraines Surgical History tubal ligation Goals Section No Information Health Concerns No Information MEDICAL EQUIPMENT No Information MENTAL STATUS No Information FUNCTIONAL STATUS No Information ASSESSMENTS No Information PLAN OF TREATMENT Medication Medication Name Sig Start Date Stop Date Seroquel 50 MG 1 tablet Orally Once a day Spironolactone 25 MG 1 tablet with food Orally Once a day Pantoprazole Sodium 40 MG 1 tablet Orally Once a day Zofran ODT 4 MG 1 tablet on the tongue and allow to dissolve Orally every 8 hrs Indomethacin 50 MG 1 capsule with food or milk Orally Twice a day for 30 day(s) SM Vitamin B1 100 MG 1 tablet Orally Once a day for Jul, Aug, 30 day(s) Xifaxan 550 MG 1 tablet Orally Twice a day Allopurinol 100 MG 1 tablet Orally Once a day for 30 day(s) Zinc Sulfate 220 (50 Zn) MG TAKE 1 CAPSULE (220 MG TOTAL) BY MOUTH 2 (TWO) TIMES A DAY. Oral Syringe 2-3 ML 3 ML 1 syringe/needle with B12 injection intramuscularly every 2 weeks for 30 days Ultram 50 MG 1 tablet as needed Orally every 6 hrs Sumatriptan Succinate 100 MG TAKE AT ONSET OF HEADACHE. MAY REPEAT IN 2 HOURS IF NO RELIEF. MAXIMUM OF 2 IN 24 HOURS. Oral Topiramate 50 MG TAKE 1 TABLET BY MOUTH AT BEDTIME Oral Rexulti 2 MG TAKE 1 TABLET BY MOUTH ONCE A DAY Oral Insurance Providers Payer Name Payer Address Payer Insured Patient Coverage Cover age Phone Name Relationship to Start Date End Date Insured [facility] [address] [phone] Madhavi Barron [place] [address] [phone] MEDICARE Attn Part B [id number] Madhavi Barron 2015 [employer] Claims [address] [facility] [address]
--- OUTSIDE RECORDS SUMMARY | 2020-08-26 14:39 | XMS REPORT | Continuity of Care Document ---
:1960 Author Organization [facility] t Address [address] [place] [address] Care Team Providers Name Role Phone Ping Garcia MD Primary Care Physician [facility] Attending Clinician Unavailable Davina FRANKLIN Attending Clinician Chela FRANKLIN Attending Clinician Meek Roper MD Attending Clinician Kortney Limon DO Attending Clinician Emerson Watts MD Attending Clinician Osorio OLMOS Attending Clinician Unavailable Doni Levy MD Attending Clinician Mana FRANKLIN Attending Clinician Kush Johnson MD Attending Clinician Chelle FRANKLIN Attending Clinician Mikel Kaplan DO Attending Clinician Marie OLMOS Attending Clinician Unavailable Alex OLMOS Attending Clinician Unavailable Jesus Alberto Kovacs DO Attending Clinician Hardik Tyson MD Attending Clinician Armida GUAJARDO Attending Clinician Unavailable Liz OLMOS Attending Clinician Unavailable Ting Pierson MD Attending Clinician Rickey Reddy MD Attending Clinician Michelle Rascon Attending Clinician Unavailable Harsh [facility] Attending Clinician Unavailable Rodolfo Soares MA Attending Clinician Unavailable Rodriguez Grubbs MD Attending Clinician Matthew Cleveland RN Attending Clinician Unavailable Stephanie GUAJARDO Attending Clinician Unavailable Reena Attending Clinician Unavailable Elham DUBOSE Attending Clinician Unavailable Netta GUAJARDO Attending Clinician Unavailable Bin Bangura MD Attending Clinician Blayne Garcia MD Attending Clinician Abiodun GUAJARDO Attending Clinician Unavailable Faustino Fuchs Attending Clinician Abiodun GUAJARDO Attending Clinician Unavailable Dominic Peralta MD Attending Clinician Kwaku Pearson MD Attending Clinician DARCY Attending Clinician Unavailable JERRY Attending Clinician Unavailable YORK Admitting Clinician Unavailable JOGLEKMANI Admitting Clinician Unavailable MCCARTAN Admitting Clinician Unavailable TING PIERSON Admitting Clinician Unavailable ROLANDO Admitting Clinician Unavailable DARCY Admitting Clinician Unavailable Payers Payer Name Policy Type Policy Effective Date Expiration Date Sour ce Number MEDICAREMEDICARE PART [id number] 2015 Gucci Todd AND 00:00:00 [place]andaen [id number] 2014[place] [id number] Nikki taylor [id number] 2014-Present 00:00:00 [place] edzulemaid Problems Condition Condition Condition Status Onset Resolution Last Treating Co mments Source Name Details Category Date Date Treatment Clinician Date Acute Acute Disease Active 2019-08 [facility] cystitis cystitis 0-03 [facility] without without 00:00: st hematuria hematuria 00 Hyperkalem Hyperkalem Disease Active 2019-08 [facility] ia ia 0-03 Methodi 00:00: st 00 Lymphedema Lymphedema Disease Active 2020- H [facility]iana 9-02 [facility] 00:00: st 00 Tremor of Tremor of Disease Active Nikki ston unknown unknown 806 [facility] origin origin 00:00: st 00 Weakness Weakness Disease Active [place] generalize generalize 6-08 Me thodi d d 00:00: st 00 Confusion Confusion Disease Active 2019- [facility]ki ston 3-03 [facility] 00:00: st 00 Acute Acute Disease Active 2018-08 [place] hepatic hepatic 1-05 [facility] encephalop encephalop 00:00: st athy athy 00 Slurred Slurred Disease Active [place] speech speech 05-08 [facility] 00:00: st 00 CAM (acute CAM (acute Disease Active [facility] kidney kidney 05-08 [facility] injury) injury) 00:00: st 00 UTI UTI Disease Active [place] (urinary (urinary 04-14 [facility] tract tract 00:00: st infection) infection) 00 Altered Altered Disease Active [place] mental mental 808 [facility] status, status, 00:00: st unspecifie unspecifie 00 d d Acute Acute Disease Active [place] abdominal abdominal 4-03 Meth erasto pain pain 00:00: st Weakness Weakness Disease Active [place] 08-20 [facility] 00:00: st 00 Chest pain Chest pain Disease Active [place] on 08-20 [facility] breathing breathing 00:00: st Non-intrac Non-intrac Disease Active [facility] table table 1 [facility] vomiting vomiting 00:00: st with with 00 nausea nausea Gastroesop Gastroesop Disease Active [facility] hageal hageal 1- [facility] reflux reflux 00:00: st disease disease 00 CAM (acute CAM (acute Disease Active 2019 [facility] kidney kidney 1 [facility] injury) injury) 00:00: st 00 Disorder Disorder Disease Active 2019 [place] of liver of liver 1-09 Method i 00:00: st 00 Liver Liver Disease Active 2017-08 [place] cirrhosis cirrhosis 1-24 Meth erasto 00:00: st 00 Acute Acute Disease Active [place] hepatic hepatic 2-24 [facility] encephalop encephalop 00:00: st athy athy 00 Hematochez Hematochez Disease Active [place] ia ia 12-11 Methodi 00:00: st 00 Melena Melena Disease Active Overview: [place] 5-02 Added [facility] 00:00: automatic st 00 ally from request for surgery [id number] Bipolar Bipolar Disease Active [place] disorder, disorder, 2-28 Meth erasto unspecifie unspecifie 00:00: st d d 00 Persistent Persistent Disease Active [place] depressive depressive - Me thodi disorder disorder 00:00: st 00 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 2- Meth erasto of liver of liver 00:00: st 00 Hepatic Hepatic Disease Active 2015-08 [place] encephalop encephalop 1-15 Me odi athy athy 00:00: st 00 S/P TIPS S/P TIPS Disease Active [place] (transjugu (transjugu 05-08 Me lar lar 00:00: st intrahepat intrahepat 00 ic ic portosyste portosyste jacqueline shunt) jacqueline shunt) Thrombocyt Thrombocyt Disease Active [facility] openia openia 05-04 Methodi 00:00: st 00 Cirrhosis Cirrhosis Disease Active Nikki ston of liver of liver 05-04 Method i not due to not due to 00:00: st alcohol alcohol 00 Malnutriti Malnutriti Disease Active [place] on 05-04 [facility] 00:00: st 00 History of Past Illness Condition Condition Condition Status Onset Resolution Last Treating Co mments Source Name Details Category Date Date Treatment Clinician Date ACM (acute CAM (acute Disease Resolve 2020-08-13 2020-08-13 [place] kidney kidney d 04-13 00:00:00 14:25:15 [facility] i injury) injury) 00:00: st 00 Confusion Confusion Disease Resolve 2019-09-03 2019-09-03 [place] d - 00:00:00 11:04:19 Method i 00:00: st 00 Allergies, Adverse Reactions, Alerts Allergy Allergy [...] Prometha Propensi Active Other (See Severe Ho trey zine ty to Comments) 09-07 confusion Meth erasto adverse 00:00: st reaction 00 s to drug Shellfis Propensi Active Anaphylaxis [place] ty to 05-05 [facility] Derived adverse 00:00: st reaction 00 s to drug Iodine Propensi Active Anaphylaxis SOB, Nikki ston ty to 05-01 wheezing, [facility] adverse 00:00: "my st reaction 00 throat s to closes drug up."*pt states cannot have topical nor IV Phenerga Adverse Active Info Not [facility] Reaction Available [facility] Iodine Adverse Active Info Not [facility] Reaction Available [facility] Family History Family Member Diagnosis Comments Start Date Stop Date Source Natural father No Known Problems Nikki brandon Mandaen Natural mother No Known Problems Nikki taylor Mandaen Social History Social Habit Start Date Stop Date Quantity Comments Source Sex Assigned At [facility] Mandaen Exposure to Not sure [place] SARS-CoV-2 (event) Method ist Cigarettes smoked 2020-08-10 2020-08-10 [place] current (pack per 00:00:00 00:00:[address] day) - Reported Cigarette 2020-08-10 2020-08-10 [place] pack-years 00:00:00 00:00:00 Mandaen Tobacco use and 2020-08-10 2020-08-10 Never used [place] exposure 00:00:00 00:00:00 Mandaen Alcohol intake 2020-08-10 2020-08-10 Current [place] 00:00:00 00:00:00 non-drinker of Mandaen alcohol (finding) History of tobacco 1976-08-12 2018-09-07 Current smoker Gucci yang use 00:00:00 00:00:00 Mandaen Tobacco Comment 2016-09-12 2016-09-12 smokes 5 [place] 00:00:00 00:00:00 cigarettes per Mandaen day Alcohol Comment 2016-05-02 2016-05-02 Former social [place] 00:00:00 00:00:00 alcohol use, quit [facility]i st several years ago; denies history of heavy alcohol use Smoking Status Start Date Stop Date Source Former smoker 2020-08-10 00:00:00 2020-08-10 00:00:00 Catracho Mcconnellist Medications Ordered Filled Start Stop Current Ordering Indication Dosage Frequency Signature Comments Components Source Medication Medication Date Date Medication? Clinician (SIG) Name Name propranolol No 10mg Q.5D Take 10 mg [facility] (INDERAL) 08-13 by mouth 2 Met hodi 10 MG 16:38: 00:00 (two) st tablet 57 :00 times a day. suvorexant 2020- No 10mg QD Take 10 mg [facility] 10 mg 08-13 by mouth [facility] tablet 16:38: 00:[address] 57 :00 furosemide 2020- No 40mg QD Take 40 mg [place] (LASIX) 20 08-13 by mouth Meth erasto mg tablet 16:38: 00:[address] 57 :00 lactulose 2020- No 20g Q.25D Take 20 g [place] (CEPHULAC) 08-13 by mouth 4 Me thodi 20 gram 16:38: 00:00 (four) st packet 57 :00 times a day. cetirizine Yes 10mg QD Take 10 mg [place] (ZyrTEC) 10 08-13 by mouth Meth erasto MG tablet 16:38: every st 53 morning. cyanocobala Yes 1000ug Q30D Inject [place] min 1,000 08-13 1,000 mcg Metho di mcg/mL 16:38: into the st injection 53 shoulder, thigh, or buttocks every 30 (thirty) days. topiramate Yes 50mg Q.5D Take 50 mg [place] (TOPAMAX) 08-13 by mouth 2 Meth erasto 100 MG 16:38: (two) st tablet 53 times a day. eszopiclone Yes 1mg QD Take 1 mg [place] (LUNESTA) 1 08-13 by mouth Meth erasto MG tablet 16:38: nightly. st 53 Take immediatel y before bedtime allopurinoL 2020- No 200mg QD Take 200 [facility] (ZYLOPRIM) 1-02 01-02 mg by [facility] 100 MG 14:42: 00:[address] tablet 57 :00 daily. spironolact 2020- No 100mg QD Take 100 [facility] one 08-13-02 mg by [facility] (ALDACTONE) 14:39: 00:[address] 100 MG 40 :00 daily. tablet potassium 2020- No 20meq QD Take 20 Nikki ston chloride 08-1302 mEq by [facility] (K-DUR) 20 14:39: 00:[address] MEQ CR 37 :00 every tablet morning. indomethaci 2020- No 50mg Q.5D Take 50 mg [facility] n (INDOCIN) 08-13 by mouth 2 M ethodi 50 MG 14:39: 00:00 (two) st capsule 25 :00 times a day with meals. benztropine No .5mg Q.5D Take 0.5 [place] (COGENTIN) 08-1302 mg by [facility] 0.5 MG 14:39: 00:[address] tablet 06 :00 (two) times a day. gabapentin 600mg QD Take 600 [place] (NEURONTIN) 08-13 mg by Method i 600 mg 14:38: 00:[address] tablet 57 :00 daily. escitalopra 15mg QD Take 15 mg [facility] m (LEXAPRO) 08-13 by mouth Met hodi 10 MG 14:36: 00:[address] tablet 57 :00 primidone No 25mg Q.5D Take 25 mg [place] (MYSOLINE) 08-13 by mouth 2 Me th[facility] 50 MG 14:36: 00:00 (two) st tablet 57 :00 times a day. brexpiprazo 2mg QD Take 2 mg [facility] le 08-13 by mouth [facility] (Rexulti) 2 14:36: 00:[address] mg tablet 57 :00 tablet QUEtiapine No 50mg QD Take 50 mg [place] (SEROquel) 08-13 by mouth Meth erasto 50 MG 14:36: 00:[address] tablet 57 :00 primidone Yes 25mg QD Take 0.5 [place] (MYSOLINE) 08-13 tablets Method i 50 MG 00:00: ([address] tablet 00 total) by mouth nightly. May cut tablet in 1/2 half escitalopra Yes 10mg QD Take 1 [place] m (LEXAPRO) 08-13 tablet (10 Me th[facility] 10 MG 00:00: mg total) st tablet 00 by mouth nightly. furosemide 2020- Yes 20mg QD Take 1 [place] (LASIX) 20 08-13 tablet (20 Me [facility] mg tablet 00:00: 23:59 mg total) st 00 :00 by mouth daily for 30 days. brexpiprazo 2020- Yes 2mg QD Take 1 [facility] ston le 08-13 tablet (2 [facility] (Rexulti) 2 00:00: 23:59 mg total) st mg tablet 00 :00 by mouth tablet daily for 30 days. QUEtiapine 2020- Yes 50mg QD Take 1 [place] (SEROquel) 08-13 tablet (50 Me thodi 50 MG 00:00: 23:59 mg total) st tablet 00 :00 by mouth nightly for 30 days. allopurinoL 2020- No 100mg QD Take 1 [place] (ZYLOPRIM) 08-13 tablet Method i 100 MG 00:00: 00:00 ([address] tablet 00 :00 total) by mouth daily for 30 days. gabapentin 2019-08- No 300mg QD Take 300 [place] (NEURONTIN) 0-23 10-23 mg by Method i 300 mg 12:53: 00:[address] capsule 04 :00 every morning. lactulose 2019-08- No 20g Q.25D Take 20 g [place] (CEPHULAC) 0-23 10-23 by mouth 4 Me thodi 20 gram 12:53: 00:00 (four) st packet 04 :00 times a day. Take 1 packet by mouth 4 times a day spironolact 2019-08- No 50mg QD Take 50 mg [facility] one 0-23 10-23 by mouth [facility] (ALDACTONE) 12:53: 00:[address] 50 MG 04 :00 morning. tablet gabapentin 2019-08 600mg QD Take 600 [place] (NEURONTIN) 0-23 10-23 mg by Method i 300 mg 12:53: 00:[address] capsule 04 :00 nightly. furosemide 2019-08 40mg QD Take 40 mg [place] (LASIX) 40 0-23 10-23 by mouth Meth erasto mg tablet 10:18: 00:[address] 21 :00 magnesium 2019-08 400mg QD Take 400 [place] oxide 0-23 10-23 mg by [facility] (MAG-OX) 10:18: 00:[address] 400 mg 21 :00 daily. (241.3 mg magnesium) tablet furosemide 2019-08 40mg QD Take 1 [place] (LASIX) 40 0-23 01-02 tablet (40 Me [facility] mg tablet 00:00: 00:00 mg total) st 00 :00 by mouth daily for 30 days. magnesium 2019-08 400mg QD Take 1 [place] oxide 0-23 11-26 tablet [facility] (MAG-OX) 00:00: 00:00 ([address] 400 mg 00 :00 total) by (241.3 mg mouth magnesium) daily for tablet 30 days. potassium 2019-08 20meq QD Take 20 Nikki ston chloride 0-20 10-20 mEq by [facility] (K-DUR) 10 14:24: 00:[address] MEQ CR 01 :00 daily. tablet Take 2 tablets by mouth every morning QUEtiapine 2019-08 250mg QD Take 250 [place] (SEROquel) 0-20 10-20 mg by [facility] 200 MG 12:11: 00:[address] tablet 03 :00 nightly. carbidopa-l 2019-08 1{tbl} QD Take 1 [place] evodopa 0-20 10-20 tablet by Method i (SINEMET) 12:04: 00:[address] 25-100 mg 06 :00 nightly. per tablet spironolact 2019- Yes 50mg QD Take 1 [place] one 9-11 tablet (50 [facility] (ALDACTONE) 00:00: mg total) s t 50 MG 00 by mouth tablet daily for 30 days. furosemide 2020-0 2020- No 40mg Q.5D Take 1 [place] (LASIX) 40 9-11 10-23 tablet (40 Me th[facility] mg tablet 00:00: 00:00 mg total) st 00 :00 by mouth 2 (two) times a day for 30 days. traMADol 2019-0 2020- No 50mg Q.5D Take 50 mg [place] (ULTRAM) 50 04-21 09-10 by mouth 2 M ethodi mg tablet 20:06: 00:00 (two) st 07 :00 times a day as needed for moderate pain. lactulose 2020-0 Yes 20g Q.25D Take 1 [place] (Kristalose 9-10 packet (20 Me thodi ) 20 gram 00:00: g total) st packet 00 by mouth 4 (four) times a day for 30 days. gabapentin 2020-0 Yes 300mg Q.[id number] Take 1 [place] (NEURONTIN) 9-10 [id number] capsule Methodi 300 mg 00:00: 3D ([address] capsule 00 total) by mouth 3 (three) times a day for 30 days. potassium 2019-0 2020- No 20meq QD Take 1 [place] chloride 9-10 10-20 tablet (20 Meth erasto (K-DUR) 20 00:00: 00:00 mEq total) st MEQ CR 00 :00 by mouth tablet daily. clonAZEPAM 2020-0 2020- No .5mg Q.5D Take 1 [place] (KlonoPIN) 9-10 10-10 tablet Method i 0.5 MG 00:00: 23:59 (0.[address] tablet 00 :00 total) by mouth 2 (two) times a day for 30 days. brexpiprazo 2019-0 2020- No 2mg QD Take 2 mg [facility] le 03-19 by mouth [facility] (REXULTI) 2 11:46: 00:[address] mg tablet 54 :00 tablet clonAZEPAM 2020-0 2020- No .5mg Q.5D Take 1 [place] (KlonoPIN) 03-19 09-10 tablet Method i 0.5 MG 00:00: 00:00 (0.[address] tablet 00 :00 total) by mouth 2 (two) times a day for 30 days. clonAZEPAM 2020-0 2020- No .5mg Q.5D Take 1 [place] (KlonoPIN) 03-19 tablet Method i 0.5 MG 00:00: 00:00 (0.[address] tablet 00 :00 total) by mouth 2 (two) times a day for 30 days. gabapentin 2020- No Hypokalemia 600mg QD Take 1 [facility] (NEURONTIN) 02-20 tablet Metho di 600 mg 00:00: 00:00 ([address] tablet 00 :00 total) by mouth nightly. With Kidney disease, 1/2 dose is recommende d, may cut 600 mg tablet in half thiamine 2020- No 100mg QD Take 1 [place] 100 MG 02-20 tablet [facility] tablet 00:00: 23:59 ([address] 00 :00 total) by mouth daily for 30 days. sodium 2019- No 1300mg Q.5D Take 2 [place] [...] cut 600 mg tablet in half pantoprazol 2019- No 40mg QD Take 40 mg [facility] e 6-15 06-15 by mouth [facility] (PROTONIX) 11:47: 00:[address] 40 MG EC 55 :00 morning. tablet QUEtiapine 2019- No 200mg QD Take 200 [place] (SEROquel) 6-15 06-15 mg by [facility] 200 MG 11:47: 00:[address] tablet 55 :00 nightly. methylnaltr 2019- 2020- No 150mg Q24H Take 150 [facility] exone 6-15 06-15 mg by [facility] (RELISTOR) 11:47: 00:[address] 150 mg 55 :00 daily as tablet needed (constipat ion). Do not take this medication if you are no longer actively taking Tramadol. riFAXimin 2019- No 550mg Q.5D Take 550 [place] (XIFAXAN) 6-15 -15 mg by [facility] 550 mg 11:47: 00:[address] tablet 55 :00 (two) times a day. senna 2019- No 1{tbl} QD Take 1 [place] (SENOKOT) -24 01-15 tablet by Meth erasto 8.6 mg 11:47: 00:[address] tablet 55 :00 every morning. spironolact 2019- No 100mg QD Take 100 [place] one 01-24-15 mg by [facility] (ALDACTONE) 11:47: 00:[address] 100 MG 55 :00 every tablet morning. ondansetron 2019- No 4mg Q4H Take 4 mg [place] ODT 01-2415 by mouth [facility] (ZOFRAN-ODT 11:47: 00:[address] ) 4 MG 55 :00 (four) disintegrat hours as ing tablet needed for nausea or vomiting. topiramate No 50mg QD Take 50 mg [place] (TOPAMAX) 01-2415 by mouth Metho di 25 MG 11:47: 00:[address] tablet 55 :00 magnesium 2019-2019- No 400mg QD Take 400 [place] oxide -24 01-15 mg by [facility] (MAG-OX) 11:47: 00:[address] 400 mg 55 :00 daily. (241.3 mg magnesium) tablet SUMAtriptan Yes Hypokalemia 50mg Q24H Take 1 [place] (Imitrex) -15 tablet (50 Meth erasto 50 MG 00:00: mg total) st tablet 00 by mouth daily as needed for migraine for up to 30 doses. May repeat in 2 hours if unresolved . Max dose 200 mg/day zinc 2020- No Hypokalemia 220mg Q.5D Take 1 [place] sulfate -24 01-15 capsule [facility] (ZINCATE) 00:00: 23:59 ([address] 220 (50) mg 00 :00 total) by capsule mouth 2 (two) times a day. pantoprazol 2020- No Hypokalemia 40mg QD Take 1 [facility] e 01-24-15 tablet (40 [facility] (PROTONIX) 00:00: 23:59 mg total) s t 40 MG EC 00 :00 by mouth tablet every morning. methylnaltr 2020- No Hypokalemia 150mg Q24H Take 150 [place] exone -15 -02 mg by [facility] (Relistor) 00:00: 00:[address] 150 mg 00 :00 daily as tablet needed (constipat ion). Do not take this medication if you are no longer actively taking Tramadol. ondansetron 2020- No Hypokalemia 4mg Q6H Take 1 [place] ODT 01-24 tablet (4 [facility] (ZOFRAN-ODT 00:00: 00:00 mg total) st ) 4 MG 00 :00 by mouth disintegrat every 6 ing tablet (six) hours as needed for nausea or vomiting. riFAXimin 2020- No Hypokalemia 550mg Q.5D Take 1 [place] (XIFAXAN) 01-24 tablet Methodi 550 mg 00:00: 00:00 ([address] tablet 00 :00 total) by mouth 2 (two) times a day. magnesium 2019- No Hypokalemia 400mg QD Take 1 [place] oxide 01-24-20 tablet [facility] (MAG-OX) 00:00: 00:00 ([address] 400 mg 00 :00 total) by (241.3 mg mouth magnesium) daily. tablet senna 2019- No Hypokalemia 1{tbl} QD Take 1 [place] (SENOKOT) 01-24 10-20 tablet by Meth erasto 8.6 mg 00:00: 00:[address] tablet 00 :00 every morning. furosemide 2019- No Hypokalemia 40mg QD Take 1 [place] (LASIX) 40 01-24 09-10 tablet (40 Me [facility] mg tablet 00:00: 00:00 mg total) st 00 :00 by mouth every morning. lactulose 2019- No Hypokalemia 20g Q.[id number] Take 1 [place] (Kristalose -15 09-10 [id number] packet (20 [facility] ) 20 gram 00:00: 00:00 3D g total) st packet 00 :00 by mouth 3 (three) times a day. spironolact 2019- 2020- No Hypokalemia 100mg QD Take 1 [place] one 01-2410 tablet [facility] (ALDACTONE) 00:00: 00:00 ([address] 100 MG 00 :00 total) by tablet mouth every morning. famotidine 2020- No Hypokalemia 20mg Take 1 [place] (Pepcid) 20 01-24 tablet (20 M ethodi MG tablet 00:00: 00:00 mg total) st 00 :00 by mouth daily. gabapentin 2020- No Hypokalemia 600mg Q.5D Take 1 [place] (NEURONTIN) 01-24 tablet Metho di 600 mg 00:00: 00:00 ([address] tablet 00 :00 total) by mouth 2 (two) times a day. potassium 2019-2019- No Hepatic 40meq QD Take 2 [place] chloride 01-24 encephalopa tablets [facility] (K-DUR) 20 00:00: 00:00 thy (HCC) ([address] MEQ CR 00 :00 total) by tablet mouth every morning. topiramate 2020- No Hypokalemia 50mg QD Take 2 [place] (TOPAMAX) 01-24 tablets Method i 25 MG 00:00: 23:59 ([address] tablet 00 :00 total) by mouth nightly for 14 days. QUEtiapine 2020- No Hypokalemia 200mg QD Take 1 [place] (SEROquel) 01-24 tablet Method i 200 MG 00:00: 23:59 ([address] tablet 00 :00 total) by mouth nightly for 14 days. escitalopra 2019- 2020- No Hypokalemia 10mg QD Take 1 [facility] m (LEXAPRO) 01-24 tablet (10 M ethodi 10 MG 00:00: 23:59 mg total) st tablet 00 :00 by mouth daily for 14 days. gabapentin 2019-0 2020- No 300mg Q.5D Take 300 [place] (NEURONTIN) 6-10 06-10 mg by Method i 300 mg 15:45: 00:[address] capsule 14 :00 (two) times a day. 9am and 2pm gabapentin 2019-0 2020- No 600mg QD Take 600 [place] [...] :00 Take immediatel y before bedtime eszopiclone 2019-2019- No 1mg QD Take 1 Nikki ston (LUNESTA) 1 01-10-15 tablet (1 Me [facility] MG tablet 00:00: 23:59 mg total) st 00 :00 by mouth nightly for 14 days. Take immediatel y before bedtime gabapentin- 2019- No 1{dose} QD 1 Dose [facility] lidocaine-m 12-23 05-14 nightly. Met hodi enthoL 09:45: 00:00 st (Active-Pac 22 :00 ) 300-4-1 mg-%-% kit,gel & capsule diphenhydrA 2019- No Take 3 [facility] st[facility] MINE 12-21 07-12 tablets [facility] (Benadryl 00:00: 00:[address] Allergy) 25 00 :00 before, mg tablet and take 3 tablets the day of famotidine 2019- No 20mg Take 1 [place] (Pepcid) 20 12-21 06-15 tablet (20 M ethodi MG tablet 00:00: 00:00 mg total) st 00 :00 by mouth daily. predniSONE 2019-2019- No Take 2 [place] (DELTASONE) 5-12 05-15 tablets Meth erasto 20 mg 00:00: 00:[address] tablet 00 :00 before and 2 tablets the morning of test eszopiclone 2019-2019- No 2mg QD Take 2 mg [place] (LUNESTA) 2 3-05 03-05 by mouth Met hodi MG tablet 11:12: 00:[address] 25 :00 Take immediatel y before bedtime eszopiclone 2020-0 2020- No 2mg QD Take 1 [facility] st[facility] (LUNESTA) 2 10-14 04-04 tablet (2 Me th[facility] MG tablet 00:00: 23:59 mg total) st 00 :00 by mouth nightly for 30 days. Okay to cut dose in half if full dose not needed hydrocortis 2019-0 2020- No 25mg QD Insert 1 [place] one 10-14- suppositor [facility] (ANUSOL-HC) 00:00: 23:59 y (25 mg s t 25 mg 00 :00 total) suppository into the rectum daily for 6 days. eszopiclone 2020-0 2020- No 2mg QD Take 1 [facility] st[facility] (LUNESTA) 2 10-14-05 tablet (2 Me [facility] MG tablet 00:00: 00:00 mg total) st 00 :00 by mouth nightly for 31 days. Okay to cut dose in half if full dose not needed eszopiclone 2019-0 2020- No 2mg QD Take 2 mg [place] (LUNESTA) 2 09-03 by mouth Met hodi MG tablet 11:33: 00:[address] 51 :00 Take immediatel y before bedtime gabapentin 2019-2019- No 600mg Q.[id number] Take 600 [place] (NEURONTIN) 09-03 [id number] mg by [facility] 600 mg 11:33: 00:[address] tablet 51 :00 (three) times a day. gabapentin 2019- 2020- No 600mg QD Take 1 [facility] st[facility] (NEURONTIN) 09-03 tablet Metho di 600 mg 00:00: 23:59 ([address] tablet 00 :00 total) by mouth nightly for 30 days. gabapentin 2019-0 2020- No 300mg Q.5D Take 1 [facility] st[facility] (NEURONTIN) 09-03 capsule Meth erasto 300 mg 00:00: 23:59 ([address] capsule 00 :00 total) by mouth 2 (two) times a day for 30 days. Breakfast 300 mg, Lunch 300 mg gabapentin- 2019- 2020- No 1{appli Q.5D 1 [place] lidocaine-m 09-03 cation} applicatio Methodi enthol 00:00: 23:59 n 2 (two) st 300-4-1 00 :00 times a mg-%-% kit, day for 30 cream and days. capsule Prescripti on given already for a compoundin g pharmacy to fill eszopiclone 2019- No 1mg QD Take 1 [facility] ston (LUNESTA) 1 09-03-26 tablet (1 Me th[facility] MG tablet 00:00: 23:59 mg total) st 00 :00 by mouth nightly for 3 days. Take immediatel y before bedtime magnesium 2019- No 400mg QD Take 400 [place] oxide 250 09-01- mg by [facility] mg 18:05: 00:[address] magnesium 44 :00 daily. tablet escitalopra 2018-08- No TAKE 1 [facility]ki ston m (LEXAPRO) 09-27 TABLET BY Me thodi 10 MG 00:00: 00:[address] tablet 00 :00 EVERY DAY furosemide 2018-08- No Awaiting 40mg QD Take 1 [place] (LASIX) 40 09-21 liver tablet (40 M ethodi mg tablet 00:00: 00:00 transplant mg total) st 00 :00 by mouth every morning. zinc 2018-08- No Awaiting 220mg Q.5D Take 1 [place] sulfate 09-21 liver capsule [facility] (ZINCATE) 00:00: 00:00 transplant ([address] 220 (50) mg 00 :00 total) by capsule mouth 2 (two) times a day. potassium 2018-08- No Hypokalemia 40meq QD Take 2 [place] chloride 08-23 tablets [facility] (K-DUR) 20 00:00: 00:00 ([address] MEQ CR 00 :00 total) by tablet mouth every morning. lactulose 2019- No Hepatic 20g [id number] Take 1 Catracho (KRISTALOSE 04-20 encephalopa [id number] packet (2 0 Methodi ) 20 gram 00:00: 00:00 thy (HCC) 3D g total) st packet 00 :00 by mouth 3 (three) times a day. SUMAtriptan 2019- No 50mg Q24H Take 1 Nikki ston (IMITREX) 7-05 06-15 tablet (50 Met hodi 50 MG 00:00: 00:00 mg total) st tablet 00 :00 by mouth daily as needed for migraine for up to 1 dose. May repeat in 2 hours if unresolved . Max dose 200 mg/day Allopurinol Allopurinol Yes Fernando 2 tablets [facility]ics Immunizations Ordered Immunization Filled Immunization Date Status Commen ts Source Name Name Influenza (IM) 2018-04-21 Completed [place] Preservative Free 00:00:[address] Pneumococcal 2016-05-08 Completed [place] Conjugate 13-Valent 00:00:00 Metho dist FLUCELVAX QUAD PF 2016-05-08 Completed [place] 00:00:00 [facility] Vital Signs Vital Name Observation Time Observation Value Comments Source Systolic blood 2020-08-13 11:18:50 131 mm[Hg] Socorro n Mandaen pressure Diastolic blood 2020-08-13 11:18:50 65 mm[Hg] Mariel galvan Mandaen pressure Heart rate 2020-08-13 11:18:50 78 /min Catracho Marquez Respiratory rate 2020-08-13 11:18:50 18 /min Alberta Marquez Oxygen saturation in 2020-08-13 11:18:50 97 /min Catracho Marquez Arterial blood by Pulse oximetry Body temperature 2020-08-13 04:23:50 36 Georgette Hous ton Mandaen Body height 2020-08-11 09:00:00 149.9 cm Catracho Marquez Body weight 2020-08-11 09:00:00 96.979 kg Catracho Marquez BMI 2020-08-11 09:00:00 43.18 kg/m2 Catracho Marquez Procedures Procedure Date / Time Performing Clinician Source Performed [id number] TOTAL 2020-08-13 05:30:00 Heriberto York on Mandaen HC COMPLETE BLD COUNT 2020-08-13 05:30:00 Heriberto York on Mandaen W/AUTO DIFF COMPREHENSIVE METABOLIC 2020-08-13 05:30:00 Heriberto York [facility]anda[place] PANEL MAGNESIUM LEVEL 2020-08-13 05:30:00 Heriberto York Met [facility]odist PHOSPHORUS LEVEL 2020-08-13 05:30:00 Heriberto York Me thodist PROTHROMBIN TIME WITH INR 2020-08-13 05:30:00 Heriberto York C-REACTIVE PROTEIN 2020-08-13 05:30:00 Heriberto York Mandaen LDH 2020-08-13 05:30:00 Heriberto York [facility] ESTIMATED GFR 2020-08-13 05:30:00 Heriberto York [facility] URINE CULTURE 2020-08-12 22:00:00 Tay Mariscal [facility] URINALYSIS SCREEN AND 2020-08-12 22:00:00 Tay Mariscal on Mandaen MICROSCOPY, WITH REFLEX TO CULTURE CT CHEST WO CONTRAST 2020-08-12 18:09:04 Tay Mariscal n Manda[place] BLOOD CULTURE, AEROBIC & 2020-08-12 06:35:00 Tay Mariscal ANAEROBIC BLOOD CULTURE, AEROBIC & 2020-08-12 06:30:00 Tay Mariscal ANAEROBIC HC COMPLETE BLD COUNT 2020-08-12 06:30:00 Heriberto York on Mandaen W/AUTO DIFF PROTHROMBIN TIME WITH INR 2020-08-12 06:30:00 Heriberto York Mandaen D-DIMER 2020-08-12 06:30:00 Heriberto York [facility]ist AMMONIA LEVEL 2020-08-12 06:30:00 Heriberto York Met [facility]ist COMPREHENSIVE METABOLIC 2020-08-12 04:00:00 Heriberto York Mandaen PANEL MAGNESIUM LEVEL 2020-08-12 04:00:00 Heriberto York Met [facility] PHOSPHORUS LEVEL 2020-08-12 04:00:00 Heriberto York Me thodist FERRITIN LEVEL 2020-08-12 04:00:00 Heriberto York Met [facility] INTERLEUKIN 6 2020-08-12 04:00:00 Heriberto York Met [facility]odist LDH 2020-08-12 04:00:00 Heriberto York Met [facility] C-REACTIVE PROTEIN 2020-08-12 04:00:00 YorkHeriberto Mandaen ESTIMATED GFR 2020-08-12 04:00:00 Chela Heriberto Hayden Met hodist VENIPUNC NEED PHYS 2020-08-11 16:29:06 Tom Castillo ethodist SKILL,DX OR RX XR CHEST 1 VW PORTABLE 2020-08-11 13:56:48 Tay Mariscal Mandaen GASTROINTESTINAL PANEL 2020-08-11 10:03:00 Heriberto York Mandaen HC COMPLETE BLD COUNT 2020-08-11 05:00:00 Heriberto York on Mandaen W/AUTO DIFF PROTHROMBIN TIME WITH INR 2020-08-11 05:00:00 Heriberto York Mandaen HEMOGLOBIN A1C 2020-08-11 05:00:00 Chela Heriberto Hayden Met hodist COMPREHENSIVE METABOLIC 2020-08-11 04:00:00 Orlando Yorktor Nikki taylor Mandaen PANEL MAGNESIUM LEVEL 2020-08-11 04:00:00 Orlando Yorktor Hayden Met hodist PHOSPHORUS LEVEL 2020-08-11 04:00:00 Orlando Yorktor Hayden Me thodist THYROID STIMULATING 2020-08-11 04:00:00 Chela Heriberto Catracho Mandaen HORMONE T4 2020-08-11 04:00:00 Orlando Yorktor Hayden Met hodist C-REACTIVE PROTEIN 2020-08-11 04:00:00 Orlando Yorktor Catracho Mandaen ESTIMATED GFR 2020-08-11 04:00:00 Orlando Yorktor Hayden Met hodist COVID-19 QUALITATIVE PCR 2020-08-10 20:05:00 Heriberto York Mandaen VENOUS BLOOD GAS 2020-08-09 16:22:00 Romero Limon Met hodist HC COMPLETE BLD COUNT 2020-08-09 16:12:00 Romero Limon Mandaen W/AUTO DIFF COMPREHENSIVE METABOLIC 2020-08-09 16:12:00 Romero Limon Mandaen PANEL LACTIC ACID, I-STAT 2020-08-09 16:12:00 Romero Limon ESTIMATED GFR 2020-08-09 16:12:[address] od[address] RENAL STONE PROTOCOL 2020-08-08 18:22:58 Janelle Watts ECG ED PRELIMINARY 2020-08-08 17:56:48 Janelle Watts Mandaen INTERPRETATION ECG 12-LEAD 2020-08-08 17:49:02 Janelle Watts Mandaen HC COMPLETE BLD COUNT 2020-08-08 17:35:00 Janelle Watts Mandaen W/AUTO DIFF COMPREHENSIVE METABOLIC 2020-08-08 17:35:00 Janelle Watts Mandaen PANEL LACTIC ACID, I-STAT 2020-08-08 17:35:00 Janelle Watts uston Mandaen CREATINE KINASE, TOTAL 2020-08-08 17:35:00 Janelle Watts (CPK) TROPONIN, I-STAT 2020-08-08 17:35:00 Janelle Watts on Mandaen B NATRIURETIC PEP, I-STAT 2020-08-08 17:35:00 Janelle Watts Mandaen ESTIMATED GFR 2020-08-08 17:35:00 Janelle Watts Mandaen HC COMPLETE BLD COUNT 2020-07-07 03:35:00 Heriberto York on Mandaen W/AUTO DIFF BASIC METABOLIC PANEL 2020-07-07 03:35:00 Heriberto York on Mandaen HEPATIC FUNCTION PANEL 2020-07-07 03:35:00 Heriberto York Mandaen MAGNESIUM LEVEL 2020-07-07 03:35:00 Heriberto York Met [facility] PHOSPHORUS LEVEL 2020-07-07 03:35:00 Heriberto York Me thodist PROTHROMBIN TIME WITH INR 2020-07-07 03:35:00 Heriberto York Mandaen MISCELLANEOUS REFERRAL 2020-07-07 03:35:00 Fauria, Annette Nikki taylor Mandaen TEST ESTIMATED GFR 2020-07-07 03:35:00 Heriberto York [facility] HC COMPLETE BLD COUNT 2020-07-06 05:00:00 Heriberto York on Mandaen W/AUTO DIFF BASIC METABOLIC PANEL 2020-07-06 05:00:00 Heriberto York on Mandaen HEPATIC FUNCTION PANEL 2020-07-06 05:00:00 Heriberto York ton Mandaen MAGNESIUM LEVEL 2020-07-06 05:00:00 Heriberto York Met [facility]odist PHOSPHORUS LEVEL 2020-07-06 05:00:00 Heriberto York Me thodist PROTHROMBIN TIME WITH INR 2020-07-06 05:00:00 Heriberto York Mandaen MISCELLANEOUS REFERRAL 2020-07-06 05:00:00 Annette Tovar Mandaen TEST ESTIMATED GFR 2020-07-06 05:00:00 Heriberto York [facility] HC COMPLETE BLD COUNT 2020-07-05 05:15:00 Heriberto York on Mandaen W/AUTO DIFF BASIC METABOLIC PANEL 2020-07-05 05:15:00 Heriberto York on Mandaen HEPATIC FUNCTION PANEL 2020-07-05 05:15:00 Heriberto York Mandaen MAGNESIUM LEVEL 2020-07-05 05:15:00 Heriberto York Met [facility]ist PHOSPHORUS LEVEL 2020-07-05 05:15:00 Heriberto York Me thodist PROTHROMBIN TIME WITH INR 2020-07-05 05:15:00 Heriberto York Manda[facility] HEMOGLOBIN A1C 2020-07-05 05:15:00 Heriberto York Met [facility] THYROID STIMULATING 2020-07-05 05:15:00 Heriberto York Manda[facility] HORMONE T4 2020-07-05 05:15:00 Heriberto York Met [facility] VITAMIN D 25 HYDROXY LEVEL 2020-07-05 05:15:00 Heriberto York Manda[facility] ZINC LEVEL, SERUM 2020-07-05 05:15:00 Heriebrto York ethodist ALPHA FETOPROTEIN 2020-07-05 05:15:00 Heriberto York ethodist ESTIMATED GFR 2020-07-05 05:15:00 Heriberto York Met [facility] ECG 12-LEAD 2020-07-04 18:50:14 Romero Limon odist LACTIC ACID LEVEL 2020-07-04 18:00:00 Romero Limon Me thodist LACTIC ACID, I-STAT 2020-07-04 15:07:00 Romero Limon COVID-19 QUALITATIVE PCR 2020-07-04 12:55:00 Romero Limon URINALYSIS 2020-07-04 12:55:00 Romero Limon URINE DRUGS OF ABUSE 2020-07-04 12:55:00 Romero Limon SCREEN XR CHEST 1 VW 2020-07-04 12:19:[address] HEAD WO CONTRAST 2020-07-04 12:19:05 Romero Limon HC COMPLETE BLD COUNT 2020-07-04 11:29:00 Romero Limon W/AUTO DIFF AMMONIA LEVEL 2020-07-04 11:29:00 Romero Limon COMPREHENSIVE METABOLIC 2020-07-04 11:17:00 Romero Limon PANEL LACTIC ACID, I-STAT 2020-07-04 11:17:00 Romero Limon VENOUS BLOOD GAS 2020-07-04 11:17:00 Romero Limon Met hodist ESTIMATED GFR 2020-07-04 11:17:00 Romero Limon BASIC METABOLIC PANEL 2020-06-03 05:33:00 Jennifer Ghosh CBC HEMOGRAM 2020-06-03 05:33:00 Jennifer Ghosh HEPATIC FUNCTION PANEL 2020-06-03 05:33:00 Jennifer Ghosh on Mandaen MAGNESIUM LEVEL 2020-06-03 05:33:00 Jennifer Ghosh Meth odist PHOSPHORUS LEVEL 2020-06-03 05:33:00 Jennifer Ghosh Met hodist PROTHROMBIN TIME WITH INR 2020-06-03 05:33:00 Jennifer Ghosh Mandaen ESTIMATED GFR 2020-06-03 05:33:00 Jennifer Ghosh Meth odist TRANSFUSE RED BLOOD CELLS 2020-06-02 19:24:45 Jennifer Ghosh Mandaen XR HAND 3+ VW LEFT 2020-06-02 18:30:00 Jennifer Ghosh ethodist BASIC METABOLIC PANEL 2020-06-02 05:19:00 Jennifer Ghosh Mandaen HEPATIC FUNCTION PANEL 2020-06-02 05:19:00 Jennifer Ghosh on Mandaen MAGNESIUM LEVEL 2020-06-02 05:19:00 Jennifer Ghosh Meth odist PHOSPHORUS LEVEL 2020-06-02 05:19:00 Jennifer Ghosh Met hodist PROTHROMBIN TIME WITH INR 2020-06-02 05:19:00 Jennifer Ghosh Mandaen HC COMPLETE BLD COUNT 2020-06-02 05:19:00 Jennifer Ghosh Mandaen W/AUTO DIFF ESTIMATED GFR 2020-06-02 05:19:00 Jennifer Ghosh Meth odist SMEAR REVIEW 2020-06-02 05:19:00 Jennifer Ghosh Meth odist VENIPUNC NEED PHYS 2020-06-01 13:55:27 Samanta Ravi ethodist SKILL,DX OR RX BASIC METABOLIC PANEL 2020-06-01 05:30:00 Jennifer Ghosh Mandaen CBC HEMOGRAM 2020-06-01 05:30:00 Jennifer Ghosh odist HEPATIC FUNCTION PANEL 2020-06-01 05:30:00 Jennifer Ghosh on Mandaen MAGNESIUM LEVEL 2020-06-01 05:30:00 Jennifer Ghosh Meth odist PHOSPHORUS LEVEL 2020-06-01 05:30:00 Jennifer Ghosh Met hodist PROTHROMBIN TIME WITH INR 2020-06-01 05:30:00 Jennifer Ghosh Mandaen AMMONIA LEVEL 2020-06-01 05:30:00 Jennifer Ghosh Meth odist ESTIMATED GFR 2020-06-01 05:30:00 Jennifer Ghosh odist PREPARE RBC 2020-06-01 05:30:00 Jennifer Ghosh Meth odist URINE DRUGS OF ABUSE 2020-05-31 09:09:00 Annette Tovar on Mandaen SCREEN MISCELLANEOUS REFERRAL 2020-05-31 09:09:00 Annette Tovar Nikki ston Mandaen TEST HC COMPLETE BLD COUNT 2020-05-31 04:27:00 Heriberto York on Mandaen W/AUTO DIFF BASIC METABOLIC PANEL 2020-05-31 04:27:00 Heriberto York on Mandaen HEPATIC FUNCTION PANEL 2020-05-31 04:27:00 Heriberto York ton Mandaen MAGNESIUM LEVEL 2020-05-31 04:27:00 Heriberto York Met hodist PHOSPHORUS LEVEL 2020-05-31 04:27:00 Heriberto York Me thodist PROTHROMBIN TIME WITH INR 2020-05-31 04:27:00 Heriberto York Mandaen HEMOGLOBIN A1C 2020-05-31 04:27:00 Heriberto York Met hodist THYROID STIMULATING 2020-05-31 04:27:00 Heriberto York Mandaen HORMONE T4 2020-05-31 04:27:00 Heriberto York Met hodist VITAMIN D 25 HYDROXY LEVEL 2020-05-31 04:27:00 Heriberto York ZINC LEVEL, SERUM 2020-05-31 04:27:00 Heriberto York ethodist ALPHA FETOPROTEIN 2020-05-31 04:27:00 Heriberto York M ethodist ESTIMATED GFR 2020-05-31 04:27:00 Heriberto York Met hodist LACTIC ACID LEVEL 2020-05-31 04:27:00 Romero Limon Me thodist LACTIC ACID LEVEL 2020-05-30 23:41:[address] ABDOMEN PELVIS WO 2020-05-30 20:14:[address] HEAD WO CONTRAST 2020-05-30 19:45:02 Romero Limon ALCOHOL LEVEL, BLOOD 2020-05-30 18:54:00 Romero Limon BLOOD CULTURE, AEROBIC & 2020-05-30 18:50:00 Romero Limon ANAEROBIC COVID-19 QUALITATIVE PCR 2020-05-30 18:40:00 Romero Limon BLOOD CULTURE, AEROBIC & 2020-05-30 18:35:00 Romero Limon ANAEROBIC AMMONIA LEVEL 2020-05-30 18:35:00 Romero Limon Meth odist VENOUS BLOOD GAS 2020-05-30 18:35:00 Romero Limon Met hodist HC COMPLETE BLD COUNT 2020-05-30 18:20:00 Romero Limonist W/AUTO DIFF COMPREHENSIVE METABOLIC 2020-05-30 18:15:00 Romero Limon PANEL LACTIC ACID, I-STAT 2020-05-30 18:15:00 Romero Limon ESTIMATED GFR 2020-05-30 18:15:00 Romero Limon MRI BRAIN & ORBIT W WO 2020-05-27 17:10:00 Cindy Adair CONTRAST URINE DRUGS OF ABUSE 2020-05-17 09:10:00 Annette Tovar SCREEN MISCELLANEOUS REFERRAL 2020-05-17 03:22:00 Annette Tovar TEST BASIC METABOLIC PANEL 2020-05-17 03:22:00 Mercy Kaplan ALCOHOL LEVEL, BLOOD 2020-05-17 03:22:00 Annetet Tovar HEPATIC FUNCTION PANEL 2020-05-17 03:22:00 Annette Tovar HC COMPLETE BLD COUNT 2020-05-17 03:22:00 Mercy Kaplan W/AUTO DIFF PROTHROMBIN TIME WITH INR 2020-05-17 03:22:00 Mercy Kaplan ESTIMATED GFR 2020-05-17 03:22:00 Annette Tovar Vt thodist XR ABDOMEN 1 VW PORTABLE 2020-05-16 18:10:00 Annette Tovar HC COMPLETE BLD COUNT 2020-05-16 05:10:00 Mercy Kaplanist W/AUTO DIFF PROTHROMBIN TIME WITH INR 2020-05-16 05:10:00 Howard Staton Mandaen HEPATIC FUNCTION PANEL 2020-05-16 01:21:00 Howard Staton Mandaen ESTIMATED GFR 2020-05-16 01:21:00 ShemarHoward M ethodist BASIC METABOLIC PANEL 2020-05-16 01:21:00 Shemar Howard Nikki taylor Mandaen COMPREHENSIVE METABOLIC 2020-05-15 05:00:00 Mercy Kaplan Mandaen PANEL HC COMPLETE BLD COUNT 2020-05-15 05:00:00 Mercy Kaplan W/AUTO DIFF ESTIMATED GFR 2020-05-15 05:00:00 Mercy Kaplan on Mandaen MAGNESIUM LEVEL 2020-05-15 05:00:00 Mercy Kaplan on Mandaen PROTHROMBIN TIME WITH INR 2020-05-15 05:00:00 Mercy Kaplan Mandaen PHOSPHORUS LEVEL 2020-05-15 05:00:00 Mercy Kaplan Mandaen PROTHROMBIN TIME WITH INR 2020-05-14 07:46:00 Emanuel Call Mandaen Imarendenewe AMMONIA LEVEL 2020-05-14 06:05:00 Jakub Emanuel Catracho Rodolfo ethodist Imarendenesujey BASIC METABOLIC PANEL 2020-05-14 06:05:00 JakubEmanuel Nikki taylor Mandaen Imarendenewe ESTIMATED GFR 2020-05-14 06:05:00 Emanuel Call Hayden Rodolfo ethodist Imarendenewe HEPATIC FUNCTION PANEL 2020-05-14 06:05:00 JakubEmanuel Mandaen Imarendenewe PHOSPHORUS LEVEL 2020-05-14 06:05:00 Emanuel Call Mandaen Imarendenewe MAGNESIUM LEVEL 2020-05-14 06:05:00 GillesAbner galvanDelawarekristal Hayden Rodolfo ethodist Imarendenewe LACTIC ACID, I-STAT 2020-05-13 19:45:00 Vamsi Johnson Mandaen BASIC METABOLIC PANEL 2020-05-13 19:45:00 Vamsi Johnson Mandaen ESTIMATED GFR 2020-05-13 19:45:00 Alex, Vamsi Hayden Meth odist COVID-19 QUALITATIVE PCR 2020-05-13 18:05:00 Vamsi Johnson Mandaen LACTIC ACID, I-STAT 2020-05-13 18:05:00 Vamsi Johnson Mandaen HI CRITICAL CARE, E/M 2020-05-13 15:22:15 Alex, Vamsi langley Mandaen 30-74 MINUTES ECG ED PRELIMINARY 2020-05-13 15:22:15 Alex, Vamsi Bomaverick Hayden M ethodist INTERPRETATION CT HEAD WO CONTRAST 2020-05-13 14:46:30 Vamsi Johnson XR KNEE 3 VW RIGHT 2020-05-13 14:38:04 Alex, Vamsiisrrael Hayden Rodolfo ethodist XR CHEST 1 VW PORTABLE 2020-05-13 13:58:09 Vamsi Johnson on Mandaen URINALYSIS 2020-05-13 13:40:00 AlexVamsi Meth odist ECG 12-LEAD 2020-05-13 13:23:43 Alex, Vamsi Bomaverick Hayden Meth odist HC COMPLETE BLD COUNT 2020-05-13 13:20:00 Vamsi Johnson Mandaen W/AUTO DIFF PROTHROMBIN TIME WITH INR, 2020-05-13 13:20:00 Vamsi Johnson Mandaen I-STAT COMPREHENSIVE METABOLIC 2020-05-13 13:20:00 Vamsi Johnson Mandaen PANEL LACTIC ACID, I-STAT 2020-05-13 13:20:00 Vamsi Johnson Mandaen CREATINE KINASE, TOTAL 2020-05-13 13:20:00 Vamsi Johnson on Mandaen (CPK) TROPONIN, I-STAT 2020-05-13 13:20:00 Vamsi Johnson Met hodist B NATRIURETIC PEP, I-STAT 2020-05-13 13:20:00 Vamsi Johnsonton Mandaen AMMONIA LEVEL 2020-05-13 13:20:00 AlexVamsi Meth odist ESTIMATED GFR 2020-05-13 13:20:00 Vamsi Johnson Catracho Meth odist HC COMPLETE BLD COUNT 2020-04-21 05:42:00 Mercy Kaplan Mandaen W/AUTO DIFF COMPREHENSIVE METABOLIC 2020-04-21 05:42:00 Mercy Kaplan Mandaen PANEL ESTIMATED GFR 2020-04-21 05:42:00 Mercy Kaplan on Mandaen BILIRUBIN DIRECT 2020-04-21 05:42:00 Mercy Kaplan Mandaen MISCELLANEOUS REFERRAL 2020-04-20 06:10:00 Mercy Kaplan Mandaen TEST BASIC METABOLIC PANEL 2020-04-20 04:25:00 Mercy Kaplan HC COMPLETE BLD COUNT 2020-04-20 04:25:00 Mercy Kaplan W/AUTO DIFF ESTIMATED GFR 2020-04-20 04:25:00 Mercy Kaplan on Mandaen HEPATIC FUNCTION PANEL 2020-04-20 04:25:00 Mercy Kaplan Mandaen POC GLUCOSE 2020-04-19 20:25:00 Mercy Kaplan on Mandaen BASIC METABOLIC PANEL 2020-04-19 04:56:00 Mercy Kaplan Mandaen ESTIMATED GFR 2020-04-19 04:56:00 Mercy Kaplan on Mandaen XR KNEE 3 VW RIGHT 2020-04-18 17:05:10 Mercy Kaplanton Mandaen COMPREHENSIVE METABOLIC 2020-04-18 04:00:00 Mercy Kaplan Mandaen PANEL ESTIMATED GFR 2020-04-18 04:00:00 Mercy Kaplan on Mandaen MAGNESIUM LEVEL 2020-04-18 04:00:00 Mercy Kaplan on Mandaen BASIC METABOLIC PANEL 2020-04-17 04:50:00 Mercy Kaplan Mandaen ESTIMATED GFR 2020-04-17 04:50:00 Mercy Kaplan on Mandaen AMMONIA LEVEL 2020-04-16 16:58:00 Mercy Kaplan on Mandaen URINE DRUGS OF ABUSE 2020-04-15 13:35:00 Annette Tovar on Mandaen SCREEN COMPREHENSIVE METABOLIC 2020-04-15 12:34:00 Mercy Kaplan Mandaen PANEL ESTIMATED GFR 2020-04-15 12:34:00 Mercy Kaplan on Mandaen COMPREHENSIVE METABOLIC 2020-04-15 05:49:00 Mercy Kaplan Mandaen PANEL HC COMPLETE BLD COUNT 2020-04-15 05:49:00 Mercy Kaplan Mandaen W/AUTO DIFF ESTIMATED GFR 2020-04-15 05:49:00 Mercy Kaplan on Mandaen ALCOHOL LEVEL, BLOOD 2020-04-14 15:04:00 FauriaAnnette on Mandaen COVID-19 QUALITATIVE PCR 2020-04-13 18:04:00 Wild Kovacs Mandaen [place] CT ABDOMEN PELVIS WO 2020-04-13 15:59:36 Wild Kovacs n Mandaen CONTRAST [place] URINALYSIS 2020-04-13 13:20:00 Wild Kovacs Met hodist [place] HC COMPLETE BLD COUNT 2020-04-13 12:21:00 Wild Kovacs on Mandaen W/AUTO DIFF [place] COMPREHENSIVE METABOLIC 2020-04-13 12:21:00 Wild Kovacs Mandaen PANEL [place] B NATRIURETIC PEP, I-STAT 2020-04-13 12:21:00 Wild Kovacs Mandaen [place] ESTIMATED GFR 2020-04-13 12:21:00 Wild Kovacs Met hodist [place] HC COMPLETE BLD COUNT 2020-03-19 04:22:00 Baylee Girard Mandaen W/AUTO DIFF BASIC METABOLIC PANEL 2020-03-19 04:22:00 Baylee Girard Mandaen HEPATIC FUNCTION PANEL 2020-03-19 04:22:00 Chad Girard Mandaen MAGNESIUM LEVEL 2020-03-19 04:22:00 Baylee Girard on Mandaen PROTHROMBIN TIME WITH INR 2020-03-19 04:22:00 Flaco Girard Mandaen ESTIMATED GFR 2020-03-19 04:22:00 Baylee Girard on Mandaen MRI BRAIN WO CONTRAST 2020-03-18 22:27:44 William Velez Mandaen URINE CULTURE 2020-03-18 17:00:00 Baylee Girard on Mandaen URINALYSIS SCREEN AND 2020-03-18 17:00:00 Baylee Girard Mandaen MICROSCOPY, WITH REFLEX TO CULTURE URINE DRUGS OF ABUSE 2020-03-18 17:00:00 Baylee Girard Mandaen SCREEN BASIC METABOLIC PANEL 2020-03-18 00:25:00 Baylee Girard HEPATIC FUNCTION PANEL 2020-03-18 00:25:00 Chad Girard MAGNESIUM LEVEL 2020-03-18 00:25:00 Baylee Girard on Mandaen ESTIMATED GFR 2020-03-18 00:25:00 Baylee Girard on Mandaen HC COMPLETE BLD COUNT 2020-03-18 00:10:00 Baylee Girard W/AUTO DIFF PROTHROMBIN TIME WITH INR 2020-03-18 00:10:[address] HEAD WO CONTRAST 2020-03-17 22:17:12 Baylee Girard LACTIC ACID LEVEL 2020-03-17 22:10:00 Romero Limon Me thodist LACTIC ACID LEVEL 2020-03-17 20:22:00 Romero Limon Vt thodist COVID-19 QUALITATIVE PCR 2020-03-17 18:10:00 Romero Limonist AMMONIA LEVEL 2020-03-17 16:40:00 Romero Limon Meth odist URINALYSIS 2020-03-17 16:30:00 Romero Limon Meth odist HC COMPLETE BLD COUNT 2020-03-17 16:30:00 Romero Limon n Mandaen W/AUTO DIFF COMPREHENSIVE METABOLIC 2020-03-17 16:30:00 Romero Limon Mandaen PANEL LACTIC ACID, I-STAT 2020-03-17 16:30:00 Romero Limon AMYLASE LEVEL 2020-03-17 16:30:00 Romero Limon Meth odist PROTHROMBIN TIME WITH INR, 2020-03-17 16:30:00 Romero Limon I-STAT ESTIMATED GFR 2020-03-17 16:30:00 Romero Limon odist IONIZED CALCIUM 2020-03-17 16:30:00 Romero Limon Meth odist ALCOHOL LEVEL, BLOOD 2020-03-17 16:30:00 Romero Limon URINE DRUGS OF ABUSE 2020-03-17 16:30:00 Romero Limon SCREEN CV STRESS TEST 2020-03-14 11:40:36 Angela Roper TTE STRESS DOBUTAMINE 2020-03-14 11:40:36 Angela Rpoer ([id number]) GENERAL SLEEP STUDY 2020-03-11 09:01:00 Ivet Reddy Mandaen Rickey HC COMPLETE BLD COUNT 2020-02-21 05:40:00 Heriberto York on Mandaen W/AUTO DIFF BASIC METABOLIC PANEL 2020-02-21 05:40:00 Heribetro York on Mandaen HEPATIC FUNCTION PANEL 2020-02-21 05:40:00 Heriberto York Mandaen MAGNESIUM LEVEL 2020-02-21 05:40:00 Heriberto York Met hodist PHOSPHORUS LEVEL 2020-02-21 05:40:00 Heriberto York Me thodist PROTHROMBIN TIME WITH INR 2020-02-21 05:40:00 Heriberto York Mandaen ESTIMATED GFR 2020-02-21 05:40:00 Heriberto York Met hodist HC COMPLETE BLD COUNT 2020-02-20 05:47:00 Heriberto York on Mandaen W/AUTO DIFF PROTHROMBIN TIME WITH INR 2020-02-20 05:47:00 Heriberto York Mandaen BASIC METABOLIC PANEL 2020-02-20 04:00:00 YorkHeriberto silverman on Mandaen HEPATIC FUNCTION PANEL 2020-02-20 04:00:00 York, Heriberto Hous ton Mandaen MAGNESIUM LEVEL 2020-02-20 04:00:00 ChelaHeriberto Met hodist PHOSPHORUS LEVEL 2020-02-20 04:00:00 ChelaHeriberto Me thodist ESTIMATED GFR 2020-02-20 04:00:00 ChelaHeriberto Met hodist XR ABDOMEN 1 VW PORTABLE 2020-02-19 18:17:50 Annette Tovar Mandaen AMMONIA LEVEL 2020-02-19 13:00:00 ChelaHeriberto Met hodist HC COMPLETE BLD COUNT 2020-02-19 06:08:00 Heriberto York on Mandaen W/AUTO DIFF BASIC METABOLIC PANEL 2020-02-19 06:08:00 Heriberto York on Mandaen HEPATIC FUNCTION PANEL 2020-02-19 06:08:00 Heriberto York Mandaen MAGNESIUM LEVEL 2020-02-19 06:08:00 Chela Heriberto Hayden Met hodist PHOSPHORUS LEVEL 2020-02-19 06:08:00 Chela Heriberto Hayden Me thodist PROTHROMBIN TIME WITH INR 2020-02-19 06:08:00 Heriberto York Mandaen HEMOGLOBIN A1C 2020-02-19 06:08:00 Orlando Yorktor Catracho Met [facility] THYROID STIMULATING 2020-02-19 06:08:00 Heriberto York Mandaen HORMONE T4 2020-02-19 06:08:00 Orlando Yorktor Hayden Met [facility] VITAMIN D 25 HYDROXY LEVEL 2020-02-19 06:08:00 Heirberto York Mandaen ZINC LEVEL, SERUM 2020-02-19 06:08:00 Heriberto York Rodolfo ethodist ALPHA FETOPROTEIN 2020-02-19 06:08:00 Orlando Yorktor Catracho M ethodist ESTIMATED GFR 2020-02-19 06:08:00 Heriberto York Met [facility] ALCOHOL LEVEL, BLOOD 2020-02-18 17:21:00 Annette Tovar on Mandaen URINE DRUGS OF ABUSE 2020-02-18 16:40:00 Annette Tovar on Mandaen SCREEN URINALYSIS 2020-02-18 13:01:00 Danyel Grubbs on Mandaen URINE DRUGS OF ABUSE 2020-02-18 13:01:00 Danyel Grubbs Mandaen SCREEN HC COMPLETE BLD COUNT 2020-02-18 10:00:00 Danyel Grubbs W/AUTO DIFF COMPREHENSIVE METABOLIC 2020-02-18 10:00:00 Danyel Grubbs Mandaen PANEL PARTIAL THROMBOPLASTIN 2020-02-18 10:00:00 Danyel Grubbs TIME (PTT) PROTHROMBIN TIME WITH INR, 2020-02-18 10:00:00 Danyel Grubbs I-STAT AMMONIA LEVEL 2020-02-18 10:00:00 Danyel Grubbs on Mandaen ESTIMATED GFR 2020-02-18 10:00:00 Danyel Grubbs on Mandaen ALCOHOL LEVEL, BLOOD 2020-02-18 10:00:00 Danyel Grubbs FERRITIN LEVEL 2020-01-20 12:39:00 Pierce Garcia TOTAL IRON BINDING 2020-01-20 12:39:00 Pierce Garcia ethodist CAPACITY [facility] HC COMPLETE BLD COUNT 2020-01-20 06:00:00 Pierce Garcia Mandaen W/AUTO DIFF [place] BASIC METABOLIC PANEL 2020-01-20 06:00:00 Pierce Garcia HEPATIC FUNCTION PANEL 2020-01-20 06:00:00 Pierce Garcia Mandaen [place] MAGNESIUM LEVEL 2020-01-20 06:00:00 Pierce Garcia odreema Lopezra PHOSPHORUS LEVEL 2020-01-20 06:00:00 Pierce Garcia PROTHROMBIN TIME WITH INR 2020-01-20 06:00:00 Pierce Garcia ALPHA FETOPROTEIN 2020-01-20 06:00:00 Annette Tovar ESTIMATED GFR 2020-01-20 06:00:00 Annette Tovar Me thodist URINE DRUGS OF ABUSE 2020-01-19 19:34:00 Annette Tovar on Mandaen SCREEN DRUG KIM 9, SER/CAROLYN, SCRN 2020-01-19 11:14:00 Calos Garcia W/RFLX TO CONF MISCELLANEOUS REFERRAL 2020-01-19 11:14:00 Calos Garcia TEST OPIATES, S/P, QUANT 2020-01-19 11:14:00 Calos Garcia BLOOD CULTURE, AEROBIC & 2020-01-19 03:00:00 Dinakar, Pierce Marquez ANAEROBIC [facility] HC COMPLETE BLD COUNT 2020-01-19 03:00:00 Dinholleyr, Pierce Marquez W/AUTO DIFF [place] BASIC METABOLIC PANEL 2020-01-19 03:00:00 Dinakar, Pierce Cisneros HEPATIC FUNCTION PANEL 2020-01-19 03:00:00 Dinakar, Pierce Cisneros MAGNESIUM LEVEL 2020-01-19 03:00:00 Dinakar, Pierce Cisneros PHOSPHORUS LEVEL 2020-01-19 03:00:00 Dinakar, Pierce Cisneros PROTHROMBIN TIME WITH INR 2020-01-19 03:00:00 Dinrodrigo, Pierce Cisnerso HEMOGLOBIN A1C 2020-01-19 03:00:00 Dinakar, Pierce Cisneros ESTIMATED GFR 2020-01-19 03:00:00 Dinrodrigo, Pierce Cisneros URINALYSIS, AUTOMATED WITH 2020-01-19 02:30:00 Dinakar, Pierce Marquez MICROSCOPY [place] PREALBUMIN LEVEL 2020-01-19 02:00:00 Dinakar, Pierce Cisneros XR FOOT 3+ VW RIGHT 2020-01-18 21:39:57 Diana Bangura HC COMPLETE BLD COUNT 2020-01-18 20:56:00 Diana Bangura W/AUTO DIFF COMPREHENSIVE METABOLIC 2020-01-18 20:56:00 Diana Bangura PANEL AMYLASE LEVEL 2020-01-18 20:56:00 Diana Bangura MAGNESIUM LEVEL 2020-01-18 20:56:00 Diana Bangura Mandaen PHOSPHORUS LEVEL 2020-01-18 20:56:00 Diana Bangura Mandaen ESTIMATED GFR 2020-01-18 20:56:00 Diana Bangura Mandaen URINALYSIS 2020-01-18 20:25:00 Diana Bangura Mandaen BASIC METABOLIC PANEL 2020-01-11 05:40:00 Dinakar, Pierce langley Mandaen [place] HC COMPLETE BLD COUNT 2020-01-11 05:40:00 Dinakar, Pierce langley Mandaen W/AUTO DIFF [place] MAGNESIUM LEVEL 2020-01-11 05:40:00 Dinakar, Pierce Treviño odist [place] HEPATIC FUNCTION PANEL 2020-01-11 05:40:00 Dinakar, Pierce Floyd on Mandaen [place] PHOSPHORUS LEVEL 2020-01-11 05:40:00 Dinakar, Pierce Cisneros PROTHROMBIN TIME WITH INR 2020-01-11 05:40:00 Dinakar, Pierce Marquez [place] ESTIMATED GFR 2020-01-11 05:40:00 Dinakar, Pierce Treviño odreema [place] XR FOOT 2 VW RIGHT 2020-01-10 18:22:30 Dinakar, Pierce Reynolds ethodist [place] MRI BRAIN WO CONTRAST 2020-01-10 17:52:00 Dinakar, Pierce langley Mandaen [place] HC COMPLETE BLD COUNT 2020-01-10 05:14:00 Dinakar, Pierce langley Mandaen W/AUTO DIFF [place] BASIC METABOLIC PANEL 2020-01-10 05:14:00 Dinakar, Pierce langley Mandaen [place] HEPATIC FUNCTION PANEL 2020-01-10 05:14:00 Dinakar, Pierce Floyd on Mandaen [place] MAGNESIUM LEVEL 2020-01-10 05:14:00 Dinakar, Pierce Treviño odist [place] PHOSPHORUS LEVEL 2020-01-10 05:14:00 Dinakar, Pierce Cisneros PROTHROMBIN TIME WITH INR 2020-01-10 05:14:00 Dinakar, Pierce Lopezra ESTIMATED GFR 2020-01-10 05:14:00 Dinakar, Pierce Cisneros URINE CULTURE 2020-01-09 05:30:00 Kayleigh Soares URINALYSIS SCREEN AND 2020-01-09 05:30:00 Kayleigh Soares Mandaen MICROSCOPY, WITH REFLEX TO CULTURE SODIUM LEVEL, URINE, 2020-01-09 05:30:00 Todd Hall RANDOM CREATININE LEVEL, URINE, 2020-01-09 05:30:00 Todd Hall RANDOM HC COMPLETE BLD COUNT 2020-01-09 05:08:00 Dinakar, Pierce langley Mandaen W/AUTO DIFF [place] BASIC METABOLIC PANEL 2020-01-09 05:08:00 Dinakar, Pierce Lopezra HEPATIC FUNCTION PANEL 2020-01-09 05:08:00 DinakarPierce on Mandaen [place] MAGNESIUM LEVEL 2020-01-09 05:08:00 DinakarPierce odreema [place] PHOSPHORUS LEVEL 2020-01-09 05:08:00 Dinakar, Pierce Hayden Met dina Cisneros PROTHROMBIN TIME WITH INR 2020-01-09 05:08:00 DinPierce wallace ESTIMATED GFR 2020-01-09 05:08:00 DinPierce wallace XR ABDOMEN 1 VW PORTABLE 2020-01-08 18:04:31 FaAnnette frankel HC COMPLETE BLD COUNT 2020-01-08 06:11:00 Dinakar, Pierce langley Mandaen W/AUTO DIFF [place] BASIC METABOLIC PANEL 2020-01-08 06:11:00 Dinakar, Pierce langley Mandaen [place] HEPATIC FUNCTION PANEL 2020-01-08 06:11:00 DinholleyrPierce on Mandaen [place] MAGNESIUM LEVEL 2020-01-08 06:11:00 DinakarPierce odist [place] PHOSPHORUS LEVEL 2020-01-08 06:11:00 Dinakar, Pierce Hayden Met dina Cisneros PROTHROMBIN TIME WITH INR 2020-01-08 06:11:00 DinPierce wallace HEMOGLOBIN A1C 2020-01-08 06:11:00 Dinakar, Pierce Cisneros ESTIMATED GFR 2020-01-08 06:11:00 Dinholleyr, Pierce Cisneros BLOOD CULTURE, AEROBIC & 2020-01-08 06:10:00 Dinakar, Pierce Marquez ANAEROBIC [place]ne BLOOD CULTURE, AEROBIC & 2020-01-07 23:03:00 Dinakar, Pierce taylor Mandaen ANAEROBIC [place] URINALYSIS, AUTOMATED WITH 2020-01-07 23:03:00 Dinakar, Pierce Marquez MICROSCOPY [place] AMMONIA LEVEL 2020-01-07 15:30:[address] HEAD WO CONTRAST 2020-01-07 15:23:57 Diana Bangura URINALYSIS 2020-01-07 15:00:00 Diana Bangura HC COMPLETE BLD COUNT 2020-01-07 14:45:00 Diana Bangura W/AUTO DIFF COMPREHENSIVE METABOLIC 2020-01-07 14:45:00 Diana Bangura PANEL LACTIC ACID, I-STAT 2020-01-07 14:45:00 Diana Bangura AMYLASE LEVEL 2020-01-07 14:45:00 Diana Bangura CREATINE KINASE, TOTAL 2020-01-07 14:45:00 Diana Bangura (CPK) TROPONIN, I-STAT 2020-01-07 14:45:00 Diana Bangura MAGNESIUM LEVEL 2020-01-07 14:45:00 Diana Bangura PHOSPHORUS LEVEL 2020-01-07 14:45:00 Diana Bangura ESTIMATED GFR 2020-01-07 14:45:[address] CARDIAC CALCIUM SCORE 2019-12-25 13:31:34 Gloria Girard HC COMPLETE BLD COUNT 2019-12-25 04:40:00 Dinakar, Pierce Marquez W/AUTO DIFF [place] BASIC METABOLIC PANEL 2019-12-25 04:40:00 Dinholleyr, Pierce Cisneros HEPATIC FUNCTION PANEL 2019-12-25 04:40:00 Dinakar, Pierce Floyd on Mandaen [place] MAGNESIUM LEVEL 2019-12-25 04:40:00 Dinakar, Pierce Treviño odist [place] PHOSPHORUS LEVEL 2019-12-25 04:40:00 Dinakar, Pierce Hayden Met dina Cisneros PROTHROMBIN TIME WITH INR 2019-12-25 04:40:00 Dinakar, Pierce Cisneros ESTIMATED GFR 2019-12-25 04:40:00 Dinakar, Pierce Treviño odist [place]ne VENIPUNC NEED PHYS 2019-12-24 14:11:08 Samanta Ravi ethodist SKILL,DX OR RX URINALYSIS, AUTOMATED WITH 2019-12-24 08:40:00 Dinakar, Pierce Marquez MICROSCOPY [place] CBC WITH PLATELET AND 2019-12-24 05:20:00 Dinakar, Pierce Marquez DIFFERENTIAL [place] PROTHROMBIN TIME WITH INR 2019-12-24 05:20:00 Dinakar, Pierce Cisneros HEMOGLOBIN A1C 2019-12-24 05:20:00 Dinakar, Pierce ledesma [place]ne BASIC METABOLIC PANEL 2019-12-24 04:00:00 Dinakar, Pierce Cisneros HEPATIC FUNCTION PANEL 2019-12-24 04:00:00 Dinakar, Pierce Floyd on Mandaen [place] MAGNESIUM LEVEL 2019-12-24 04:00:00 Dinakar, Pierce Lopezra PHOSPHORUS LEVEL 2019-12-24 04:00:00 Dinakar, Pierce Hayden Met dina Cisneros ESTIMATED GFR 2019-12-24 04:00:00 Dinakar, Pierce Lopezra BLOOD CULTURE, AEROBIC & 2019-12-23 17:20:00 Dinakar, Pierce Marquez ANAEROBIC [place] HC COMPLETE BLD COUNT 2019-12-23 17:20:00 Dinakar, Pierce Marquez W/AUTO DIFF [place]ne PROTHROMBIN TIME WITH INR 2019-12-23 17:20:00 Dinakar, Pierce Lopezra PARTIAL THROMBOPLASTIN 2019-12-23 17:20:00 Dinakar, Pierce Floyd on Mandaen TIME (PTT) [place] AMYLASE LEVEL 2019-12-23 16:36:00 Dinakar, Peirce Hayden Meth odist [place]ne BASIC METABOLIC PANEL 2019-12-23 16:36:00 Dinakar, Pierce langley Mandaen [place] HEPATIC FUNCTION PANEL 2019-12-23 16:36:00 Dinakar, Pierce Floyd on Mandaen [place] LIPASE LEVEL 2019-12-23 16:36:00 Dinakar, Pierce Hayden Meth odist [place]ne LIPID PANEL 2019-12-23 16:36:00 Dinakar, Pierce Hayden Meth odist [place]ne MAGNESIUM LEVEL 2019-12-23 16:36:00 Dinakar, Pierce Treviño odist [place] PHOSPHORUS LEVEL 2019-12-23 16:36:00 Dinakar, Pierce Hayden Met hodreema Cisneros PREALBUMIN LEVEL 2019-12-23 16:36:00 Dinakar, Pierce Hayden Met hodreema Cisneros ESTIMATED GFR 2019-12-23 16:36:00 Dinakar, Pierce Cisneros POC CREATININE 2019-12-23 12:28:00 Angela Roper on Mandaen ESTIMATED GFR 2019-12-23 12:28:00 Angela Roper on Mandaen MRI ABDOMEN W WO CONTRAST 2019-10-15 07:45:00 Annette Tovar Mandaen HC COMPLETE BLD COUNT 2019-10-15 05:00:00 Dinakar, Pierce langley Mandaen W/AUTO DIFF Bl[place]ne PROTHROMBIN TIME WITH INR 2019-10-15 05:00:00 Dinakachristiana, Pierce yang Mandaen [place] BASIC METABOLIC PANEL 2019-10-15 04:00:00 Dinakar, Pierce langley Mandaen [place] HEPATIC FUNCTION PANEL 2019-10-15 04:00:00 Dinakar, Pierce Floyd on Mandaen Bl[place] MAGNESIUM LEVEL 2019-10-15 04:00:00 Dinakar, Pierce Treviño odist [place]ne PHOSPHORUS LEVEL 2019-10-15 04:00:00 Dinakar, Pierce Olivier hodreema Cisneros ESTIMATED GFR 2019-10-15 04:00:00 Dinakar, Pierce Hayden Meth odreema Lopezra TTE COMPLETE, WO CONTRAST, 2019-10-14 15:31:38 Jose Alfredo Tovarina Catracho Mandaen W DOPPLER ([id number]) POTASSIUM LEVEL 2019-10-14 09:27:00 Dinakar, Pierce Hayden Meth odist Blayne HEPATIC FUNCTION PANEL 2019-10-14 09:27:00 Dinakar, Pierce Floyd on Mandaen Blayne HC COMPLETE BLD COUNT 2019-10-14 04:45:00 Dinakar, Pierce langley Mandaen W/AUTO DIFF [place] BASIC METABOLIC PANEL 2019-10-14 04:45:00 Dinakar, Pierce langley Mandaen [place] HEPATIC FUNCTION PANEL 2019-10-14 04:45:00 Dinakar, Pierce Floyd on Mandaen Bl[place]ne MAGNESIUM LEVEL 2019-10-14 04:45:00 Dinakar, Pierce Hayden Meth odist [place]ne PHOSPHORUS LEVEL 2019-10-14 04:45:00 Dinakar, Pierce Hayden Met dina Cisneros PROTHROMBIN TIME WITH INR 2019-10-14 04:45:00 Dinakar, Pierce Marquez [place] HEMOGLOBIN A1C 2019-10-14 04:45:00 Dinakar, Pierce Hayden Meth odist Blayne ESTIMATED GFR 2019-10-14 04:45:00 Dinakar, Pierce Treviño odist [place]ne SMEAR REVIEW 2019-10-14 04:45:00 Dinakar, Pierce Hayden Meth odist Bl[place]ne PROTHROMBIN TIME WITH INR 2019-10-13 09:32:00 Dinakar, Pierce Cisneros HC COMPLETE BLD COUNT 2019-10-13 09:31:00 Dinakar, Pierce langley Mandaen W/AUTO DIFF [place] BASIC METABOLIC PANEL 2019-10-13 08:21:00 Dinakar, Pierce langley Mandaen [place] HEPATIC FUNCTION PANEL 2019-10-13 08:21:00 Dinakar, Pierce Floyd on Mandaen Blayne MAGNESIUM LEVEL 2019-10-13 08:21:00 Dinakar, Pierce Hayden Meth odist Bl[place]ne PHOSPHORUS LEVEL 2019-10-13 08:21:00 Dinakar, Pierce Hayden Met dina Cisneros ESTIMATED GFR 2019-10-13 08:21:00 Dinakar, Pierce Treviño odist Bl[place]ne PREALBUMIN LEVEL 2019-10-13 08:20:00 Dinakar, Pierce Hayden Met dina BARRAZA A STREP, RAPID 2019-10-13 02:40:00 Fabian, Cheo Marquez ANTIGEN STREP SCREEN CULTURE 2019-10-13 02:40:00 Fabian, Cheo Marquez URINALYSIS 2019-10-13 02:01:00 Fabian, Cheo Marquez CT HEAD WO CONTRAST 2019-10-13 01:40:00 Fabian, Cheo Marquez BLOOD CULTURE, AEROBIC & 2019-10-13 00:10:00 Fabian, Choe Marquez ANAEROBIC BLOOD CULTURE, AEROBIC & 2019-10-13 00:00:00 Fabian, Cheo Marquez ANAEROBIC XR FOOT 3+ VW LEFT 2019-10-12 23:23:30 Fabian, Cheo Flody on Mandaen XR KNEE 1 OR 2 VW RIGHT 2019-10-12 23:22:45 Fabian, Cheo Marquez HC COMPLETE BLD COUNT 2019-10-12 23:00:00 Fabian, Cheo Marquez W/AUTO DIFF AMMONIA LEVEL 2019-10-12 22:50:00 Fabian, Cheo Marquez COMPREHENSIVE METABOLIC 2019-10-12 22:50:00 Fabian, Cheo Marquez PANEL HEPATIC FUNCTION PANEL 2019-10-12 22:50:00 Fabian, Cheo Marquez ESTIMATED GFR 2019-10-12 22:50:00 Fabian, Cheo Marquez COMPREHENSIVE METABOLIC 2019-10-01 15:25:00 Provider, Historical Catracho Marquez PANEL CBC WITH PLATELET AND 2019-10-01 15:25:00 Provider, Historical Isrrael Marquez DIFFERENTIAL PROTHROMBIN TIME WITH INR 2019-10-01 15:25:00 Provider, Historic emigdio Marquez HC COMPLETE BLD COUNT 2019-09-03 08:00:00 Heriberto York on Mandaen W/AUTO DIFF BASIC METABOLIC PANEL 2019-09-03 08:00:00 Heriberto York on Mandaen HEPATIC FUNCTION PANEL 2019-09-03 08:00:00 Heriberto York Mandaen MAGNESIUM LEVEL 2019-09-03 08:00:00 Heriberto York Met hodist PHOSPHORUS LEVEL 2019-09-03 08:00:00 Heriberto York Me thodist PROTHROMBIN TIME WITH INR 2019-09-03 08:00:00 Heriberto York ESTIMATED GFR 2019-09-03 08:00:00 Heriberto York Met hodist URINE DRUGS OF ABUSE 2019-09-02 20:25:00 Annette Tovar on Mandaen SCREEN US HEPATIC 2019-09-02 18:05:00 Annette Tovar Me thodist AMMONIA LEVEL 2019-09-02 05:53:00 Amari Pearson Mandaen HC COMPLETE BLD COUNT 2019-09-02 05:53:00 Heriberto York on Mandaen W/AUTO DIFF BASIC METABOLIC PANEL 2019-09-02 05:53:00 Heriberto York on Mandaen HEPATIC FUNCTION PANEL 2019-09-02 05:53:00 Heriberto York Mandaen MAGNESIUM LEVEL 2019-09-02 05:53:00 Heriberto York Met hodist PHOSPHORUS LEVEL 2019-09-02 05:53:00 Heriberto York Me thodist PROTHROMBIN TIME WITH INR 2019-09-02 05:53:00 Heriberto York HEMOGLOBIN A1C 2019-09-02 05:53:00 Heriberto York Met hodist THYROID STIMULATING 2019-09-02 05:53:00 Heriberto York Mandaen HORMONE T4 2019-09-02 05:53:00 Heriberto York Met hodist VITAMIN D 25 HYDROXY LEVEL 2019-09-02 05:53:00 Heriberto York Mandaen ZINC LEVEL, SERUM 2019-09-02 05:53:00 Heriberto York M ethodist ALPHA FETOPROTEIN 2019-09-02 05:53:00 Heriberto York M ethodist ESTIMATED GFR 2019-09-02 05:53:00 Heriberto York Met hodist AMMONIA LEVEL 2019-09-01 12:52:[address] CERVICAL SPINE WO 2019-09-01 12:11:39 Lili Amari Duckworthu ston Mandaen CONTRAST XR SHOULDER 2+ VW LEFT 2019-09-01 12:11:21 LiliAmari sorto [place]anda[place] XR KNEE 1 OR 2 VW RIGHT 2019-09-01 12:10:[address] HEAD WO CONTRAST 2019-09-01 12:10:03 Amari Pearsonist URINALYSIS 2019-09-01 11:45:00 Amari Pearson COMPREHENSIVE METABOLIC 2019-09-01 11:33:00 Amari Pearson PANEL HC COMPLETE BLD COUNT 2019-09-01 11:33:00 Amari Pearson W/AUTO DIFF PROTHROMBIN TIME WITH INR, 2019-09-01 11:33:00 Amari Pearson I-STAT ESTIMATED GFR 2019-09-01 11:33:00 Amari Pearson Plan of Care Planned Activity Planned Date Details Comments Source Future Scheduled 2020-03-12 INFLUENZA VACCINE [place] [facility] 00:00:00 [code = INFLUENZA VACCINE] Future Scheduled 2019-10-08 Screening for [place] [facility] 00:00:00 malignant neoplasm of cervix (procedure) [code = 218002015] Future Scheduled 2018-10-17 BREAST CANCER [place] [facility] Test 00:00:00 SCREENING [code = BREAST CANCER SCREENING] Future Scheduled 2011 COLONOSCOPY SCRE[place]ING [place] Test 00:00:00 [code = COLONOSCOPY SCREENING] Future Scheduled 2011 SHINGLES VACCINES [place] [facility] 00:00:00 (#1) [code = SHINGLES VACCINES (#1)] Future Scheduled 1977 COVID-19 VACCINE (1 [place] Test 00:00:00 of 2) [code = COVID-19 VACCINE (1 of 2)] Encounters Start End Encounter Admission Attending Care Care Encounter Source Date/Time Date/Time Type Type Clinicians Facility Department ID 2020-08-10 2020-08-13 Inpatient CHELA [facility] [id number] [place] 00:00:00 00:00:00 HERIBERTO [address] 2020-08-09 2020-08-09 Emergency NUSZEN, [facility] [id number] [place] 00:00:00 00:00:00 ROMERO [address] 2020-08-08 2020-08-08 Emergency ELLE, [facility] [id number] [place] 00:00:00 00:00:00 JANELLE [address] 2020-07-27 2020-07-27 Outpatient [facility] [id number] [facility] 2020-07-18 2020-07-18 Outpatient [facility] [id number] [place] 00:00:00 00:00:[address] 2020-07-04 2020-07-07 Inpatient JENNIFER GHOSH [id number] [place] 00:00:00 00:00:[address] 2020-06-28 2020-06-28 Outpatient [facility] [id number] [facility] 2020-06-20 2020-06-20 Outpatient [facility] [id number] [facility] 2020-05-30 2020-06-03 Inpatient JENNIFER GHOSH [facility] [id number] [place] 00:00:00 00:00:[address] 2020-05-27 2020-05-27 Outpatient YALAMANCHIL [facility] [id number] [place] 00:00:00 00:00:00 CINDY Torres [address] 2020-05-20 2020-05-20 Outpatient [facility] [id number] [facility] 2020-05-13 2020-05-17 Inpatient MCCARTAN, [facility] [id number] [place] 00:00:00 00:00:00 [facility] [address] 2020-04-13 2020-04-21 Inpatient YOJANA, [facility] [id number] [place] 00:00:00 00:00:00 JUNO [address] 2020-04-13 2020-04-13 [facility] [id number] 16:02:00 16:02:[address] [employer] - Drive [facility] Medicine Outpati ent Clinics 2020-04-13 2020-04-13 [facility] [id number] 09:33:00 09:33:[address] [facility] - Drive [facility] Medicine Outpati ent Clinics 2020-04-05 2020-04-05 [facility] [id number] 09:10:00 09:10:00 [place] [employer] [facility] - Drive [facility] Medicine Outpati ent Clinics 2020-04-04 2020-04-04 [facility] [id number] 10:58:00 10:58:00 [place] [employer] [place] - Drive [facility] Medicine Outpati ent Clinics 2020-04-04 2020-04-04 [facility] [id number] 10:00:00 10:00:00 [place] [employer] - Drive [facility] Medicine Outpati ent Clinics 2020-03-17 2020-03-19 Inpatient [facility] [id number] [place] 00:00:00 00:00:00 Fausto PIERSON2 [facility] [address] 2020-03-16 2020-03-16 [facility] [id number] 11:12:00 11:12:00 [place] [employer] - [employer] [facility] Medicine Outpati ent Clinics 2020-03-14 2020-03-14 Outpatient JACQUELIN, [facility] [id number] [place] 00:00:00 00:00:00 ANGELA [address] 2020-03-10 2020-03-10 [facility] [id number] 13:18:00 13:18:00 [place] [employer] - Drive [facility] Medicine Outpati ent Clinics 2020-03-07 2020-03-07 [facility] [id number] 16:07:00 16:07:00 [place] [employer] [facility] [facility] - Drive [facility] Medicine Outpati ent Clinics 2020-03-04 2020-03-04 [facility] [id number] 11:00:00 11:00:00 [place] [employer] Luke s - Drive [facility] Medicine Outpati ent Clinics 2020-03-04 2020-03-04 [facility] [id number] [facility] 11:00:00 11:00:[address] Luke s - [address] [facility] Medicine [facility] 2020-03-04 2020-03-04 Outpatient MEAGAN, [facility] [id number] [place] 00:00:00 00:00:00 JAYASIMHA 578 Meth erasto 2020-02-18 2020-02-21 Inpatient YORK, [facility] [id number] [place] 00:00:00 00:00:00 HERIBERTO 304 [facility] i 2020-01-18 2020-01-20 Inpatient DINAKAR, [facility] [id number] [place] 00:00:00 00:00:00 PIERCE 881 [facility] i 2020-01-07 2020-01-11 Inpatient YORK, [facility] [id number] [place] 00:00:00 00:00:00 HERIBERTO 087 Method i 2019-12-29 2019-12-29 Out[facility] [id number] [facility] 07:03:00 07:03:00 TRA MyDentist s [facility] 2019-12-23 2019-12-25 Inpatient TING [facility] [id number] [place] 00:00:00 00:00:00 PIERSON, 540 [address] i BAYLEE 2019-12-23 2019-12-23 Outpatient JACQUELIN, [facility] [id number] [place] 00:00:00 00:00:00 AHMED 960 [facility] i 2019-12-22 2019-12-22 Office [facility] [id number] 14:08:03 14:56:41 Visit [facility] [id number] Surgical [id number] Special [id number] [place] 2019-10-12 2019-10-15 Inpatient YORK, [facility] [id number] [place] 00:00:00 00:00:00 HERIBERTO 906 Method i 2019-09-01 2019-09-03 Inpatient YORK, [facility] [id number] [place] 00:00:00 00:00:00 HERIBERTO [address] 2019-07-20 2019-07-20 [facility] [id number] 14:02:00 14:02:00 [place] [employer] - Drive [facility] l Medicine Outpati ent Clinics 2019-07-16 2019-07-16 [facility] [id number] 13:15:00 13:15:00 t [employer] s - Drive [facility] Medicine Outpati ent Clinics 2019-06-16 2019-06-18 Inpatient CHELA, [facility] [id number] [place] 00:00:00 00:00:00 HERIBERTO [address] 2019-05-07 2019-05-08 Outpatient DARCY, UMAR [facility] [id number] [place] 00:00:00 00:00:[address] 2019-04-23 2019-04-23 Outpatient GALATI, [facility] [id number] [place] 00:00:00 00:00:00 CALOS [address] 2019-04-23 2019-04-23 Outpatient JACQUELIN, [facility] [id number] [place] 00:00:00 00:00:00 AHMED [address] 2019-04-15 2019-04-15 [facility] [id number] 14:19:00 14:19:00 t [employer] - [employer] [facility] Medicine Outpati ent Clinics 2019-04-09 2019-04-09 [facility] [id number] 14:00:00 14:00:00 t [employer] - Drive [facility] Medicine l Medicine Outpati ent Clinics 2018-09-09 2018-09-09 [facility] [id number] 14:45:00 14:45:00 [place] [employer] - Drive [facility] Medicine l Medicine Outpati ent Clinics 2018-04-15 2018-04-15 [facility] [id number] 12:02:00 12:02:00 [place] [employer] - Drive [facility] Out[facility] Clinics 2018-02-19 2018-02-19 Outpatient Irma Galvez [id number] 15:08:00 15:08:00 [facility] 2018-01-24 2018-01-24 Outpatient Irma Galvez [id number] 11:15:00 11:15:00 [facility] Results Test Description Test Time Test Comments Results Result Comments Source Blood culture, aerobic & anaerobic 2020-08-17 08:03:04 Test Item Value Reference Range Interpretation Comme nts Blood culture isolate No growth after 5 days of Specimen InformationSpecimen (test code = 600-7) incubation. Source: BloodSpecimen Site: Peripheral Hand Right Peripheral Hand Left [place] [id number] 09:52:21 Test Item Value Reference Range Interpretation Comments [id number] Non-reactive Non-reactive This test sh ould not be total (test code used [place] diagnosis of = [address]4031-0) acute SARS-CoV- 2/COVID-19 infection. Resu lts are for the detecti on of total SARS-CoV- 2 antibodies. Re active results can be indicative of acute or rec ent infection. Non -reactive results do not preclude SARS-CoV-2 infe ction and should notbe us ed as the sole basis for patient management deci sions. Results must be combined with clinical observations, p atient history, and epidemiological information. T he sensitivity of the SARS-CoV-2 Tota l assay early after inf ection is unknown. False reactive results may occ ur due to cross-reactivit y from pre-existingant ibodies or other possible causes. At this time, i t is unknown for how long antibodies to S ARS-CoV-[address] virus [address] st following infec tion. This test has not be en FDA cleared or appr giancarlo. This test has been a uthorized by FDA under an EUA for use by authoriz ed laboratories.Th is test has been author ized only for the presenc e of total antibodies agai nst SARS-CoV-2, not for any other viruses o r pathogens. This test is only authorized for the duration of the declaration veronika t circumstances e xist justifying the authorization o f emergency use o f in vitro diagnostics for detection and/or diagnosi s of COVID-19 under Syfweha417(b)(1 ) of the Act, 21 U.S.C. 360bbb-3(b)(1 ), unless authorization isterminated or revoked sooner. [place] [facility] [id number] 07:05:41 Test Item Value Reference Range Interpretation Comments Sodium (test code = 137 135- 148 mEq/L 2951-2) Potassium (test code = 4.0 3.5- 5.0 mEq/L 2823-3) Chloride (test code = 109 98- 112 mEq/L 2075-0) CO2 (test code = 2027-9) 18 24- 31 mEq/L L Anion gap (test code = 10@ANIO 7- 15 mEq/L 35282-7) BUN (test code = 3094-0) 22 mg/dL 6-20 H Creatinine (test code = 1.40 mg/dL 0.5-0.9 H 2160-0) Glucose (test code = 148 mg/dL 65-99 H 2345-7) Calcium (test code = 8.8 mg/dL 8.3-10.2 83996-8) Protein (test code = 6.3 g/dL 6.3-8.3 -[place] n 2885-2) 4.6-7.0 g/dL1 week 4.4-7 .6 g/dL7 months-1y ear 5.1-7 .3 g/dL1-2 years 5.6-7 .5 g/dL>3 years 6.0-8 .0 g/fV28-419 6.3-8 .3 g/dL Albumin (test code = 3.3 g/dL 3.5-5 L 1751-7) A/G ratio (test code = 1.1 0.7-3.8 1759-0) Alkaline phosphatase 96 U/L 35-104 (test code = 6768-6) AST (test code = 1920-8) 23 U/L 10-35 ALT (test code = 1742-6) 13 U/L 5-50 Total bilirubin (test 0.6 mg/dL 0-1.2 code = 1974-2) Lab Interpretation (test Abnormal code = 56181-0) [place] [id number] 07:05:41 Test Item Value Reference Range Interpretation Comments LDH (test code = 62602-9) 166 U/L 87-225 [facility] [id number] 07:05:41 Test Item Value Reference Range Interpretation Comments Magnesium (test code = 80184-9) 2.0 mg/dL 1.6-2.6 [facility]-reactive [id number] 07:05:41 Test Item Value Reference Range Interpretation Comments CRP (test code = 1988-5) 0.71 mg/dL 0-0.5 H Lab Interpretation (test code = Abnormal 22536-8) [facility] [id number] 07:05:41 Test Item Value Reference Range Interpretation Comments Estimated GFR (test 41 mL/min/1.73 m2 A Don granados Units code = 5488) InterpretationG 1 >=90 Alee l or highG2 60-89 Mildly decrease dG3a 45-59 Mil dly to moderately decr yjemtO5h 30-44 Moderately to s everely decreasedG4 15-29 Severe ly decreasedG5 <15 Kidney betsy lureThe eGFR was calcul ated using the Chron ic Kidney Disease Epidemiology Collaboration ( CKD-EPI) equation. Interpretation is based on recommendati ons of the [facility] Disease Outcome s Quality Initiat chago ([facility]KDOQI[facility]. Lab Interpretation Abnormal (test code = 89035-6) Catracho McconnellistPhosphorus [id number] 07:05:33 Test Item Value Reference Range Interpretation Comments Phosphorus (test code = 2777-1) 2.2 mg/dL 2.4-4.5 L Lab Interpretation (test code = Abnormal 03698-0) Catracho MarquezProthrombin time with [id number] 06:18:43 Test Item Value Reference Range Interpretation Comments Prothrombin time (test 16.7 11.5- 14.5 sec H code = 5902-2) INR (test code = 1.4 The Interna tional 82614-4) Normalized Rati o (INR) is a therapeuti c monitoring tool for patients who ar e stable on oral anticoagulant t herapy. An INR of 2.0-3 .0 is suggested for d eep vein thrombosis/pulm onary embolism. Lab Interpretation Abnormal (test code = 93042-4) [facility] MethodistCBC with platelet and agtworvqhwyo7737-63-24 06:00:33 Test Item Value Reference Range Interpretation Comments WBC (test code = 15701-8) 8.55 4.50- 11.00 k/uL RBC (test code = 46543-1) 2.56 m/uL 4.2-5.5 L HGB (test code = 718-7) 8.2 g/dL 12-16 L HCT (test code = 4544-3) 24.9 % 37-47 L MCV (test code = 787-2) 97.3 fL 82-100 MCH (test code = 785-6) 32.0 pg 27-34 MCHC (test code = 786-4) 32.9 g/dL 31-37 RDW - SD (test code = 58.3 fL 37-55 H 52257-1) MPV (test code = 16491-0) 11.4 fL 8.8-13.2 Platelet count (test code 129 150- 400 k/uL L = 36729-9) Nucleated RBC (test code 0.00 /100 WBC = 10421-6) Neutrophils (test code = 84.8 % 39-69 H 54086-4) Lymphocytes (test code = 8.3 % 25-45 L 47582-9) Monocytes (test code = 6.0 % 0-10 38473-6) Eosinophils (test code = 0.0 % 0-5 20646-4) Basophils (test code = 0.2 % 0-1 89581-2) Immature granulocytes 0.7 % 0-1 "Immat ure (test code = 26450-1) granul ocytes" (promyelocytes, myelocytes, metamyelocytes) Lab Interpretation (test Abnormal code = 53626-4) [facility] MethodistUrinalysis screen and microscopy, with reflex to culture 2020-08-12 23:56:00 Test Item Value Reference Range Interpretation Comments Specimen site (test code = 4529673) Midstream Color, UA (test code = 5778-6) Yellow Appearance, UA (test code = 5767-9) Clear Specific gravity, UA (test code = 1.015 1.001-1.035 5811-5) pH, UA (test code = 5803-2) 7.0 5.0-8.5 Protein, UA (test code = 93229-4) Negative Negative Glucose, UA (test code = 03138-6) Negative Negative Ketones, UA (test code = 2514-8) Negative Negative Bilirubin, UA (test code = 5770-3) Negative Negative Blood, UA (test code = 5794-3) Negative Negative Nitrite, UA (test code = 5802-4) Negative Negative Urobilinogen, UA (test code = <2.0 <2.0 13730-7) Leukocyte esterase, UA (test code = Negative Negative 5799-2) Epithelial cells, UA (test code = 8 /HPF 5787-7) Round epithelial cells, UA (test <1 0- 1 /HPF code = 33961-5) WBC, UA (test code = 5821-4) 1 0- 4 /HPF RBC, UA (test code = 11398-0) None seen 0- 5 /HPF Bacteria, UA (test code = 29823-7) Few None seen Yeast, UA (test code = 73499-1) None seen Yeast with pseudohyphae, UA (test None seen code = 65916-7) Hyaline casts, UA (test code = 19 /LPF 5796-8) Hayden MandaenUrine npahaii3072-45-21 23:20:08 Test Item Value Reference Range Interpretation Comments Urine culture (test SEE COMMENT Bacteriu yuki screen code = 9286171) negative. Hayden JayeshistCT Chest Wo Yjmaferd9537-92-79 18:17:19Hm Interface, Radiology Results 08/12/2020 6:20 PM CSTEXAMINATION: CT CHEST WO CONTRASTCL INICAL HISTORY: COVID-19TECHNIQUE: Axial images of the chest were obtained without intravenous contrast. The lack of intravenous contrast reduces the sensitivity of the exam and evaluating vasculature. CT imaging was performed with iterative reconstruction technique and/or automated exposure control to reduce radiation dose.COMPARISON: 04/25/2018 and most recent chest x- rayIMPRESSION:CHEST:1. Aorta:The thoracic aorta is nonaneurysmal2. Heart: The heart is normal in size.3. Pericardial Fluid: No pericardial effusion.4. Mediastinum: No enlarged nodes or mass.5. Airways: Central airways are patent.6. Lungs: Minimal posterior dependent scarring or atelectasis. No CT scan findings to suggest COVID-19pneumonia or acute infiltrate.7. Pleural Fluid: No pleural effusions.8. Bones: Osseous structures intact. No destructive bony lesions.9. Upper Abdomen: Cirrhosis. Portal hypertension with splenomegaly.TIPS shunt.10. Other Findings: NoneSUMMARY:1.No acute findings in the chest. No CT evidence of COVID-19 pneumonia.2.Cirrhosis, portal hypertension, TIPS shunt and splenomegaly.[facility]-[id number] MethodistFerritin itcpa7873-08-23 08:14:30 Test Item Value Reference Range Interpretation Comments Ferritin level (test code = 2276-4) 64 ng/mL 13-150 Catracho McconnellistInterleukin 08:14:26 Test Item Value Reference Range Interpretation Comments Interleukin 6 (test 8.3 pg/mL 0-10.5 This etienne t has not been code = 42930-8) FDA cleared or approved. This test has been authorized by FDA under an EUA fo r use by authorized laboratories. T his test has been author ized only to assist in identifying sev ere inflammatory re sponse, when used as an aid in determining the risk of intubation with mechanical vent ilation in confirmed CO VID-19 patients. This test is only authorized for the duration of the declaration veronika t circumstances e xist justifying the authorization o f emergency use o f medical devices under Section 564(b)( 1) of the Act, 21 U.S .C. 360bbb-3(b)(1 ), unless the authorization i s terminated or r evoked sooner. Hayden MethodistAmmonia [id number] 07:42:23 Test Item Value Reference Range Interpretation Comments Ammonia (test code = 1841-6) 23 umol/L 11-51 Hayden PevzsdsuxF-qjtyt2563-33-01 07:23:54 Test Item Value Reference Range Interpretation Comments D-dimer (test code = 3.79 0.00- 0.40 ug/mL H Uni ts are ug/ml 48673-7) FEU Fibrinogen Equivalent Unit .When combined with l ow clinical probability, D- dimer results of less than 0.5 ug/ml FEU h ave a good negative predictive valu e in excluding PE or DVT. For D-dimer re sults greater than 0. 5 ug/ml FEU furth er testing is steph cated if PE or DVT is suspected clinically.Elev ated D-dimer results have been reported i n DVT, PE, and DI C cases and may indicate the presence of a c lot. D-dimer results may be elevated due to old age, pregna ncy, inflammatory diseases, traum a, post-operative states, sepsis, and malignancies. Lab Interpretation Abnormal (test code = 71293-0) Catracho MarquezVENOSCAR NEED PHYS SKILL,DX OR [id number] 16:29:06Samanta Ravi RN 08/11/2020 4:31 PMMidline Insertion Date/Time: 08/11/2020 4:29 PMPerformed by: Tom Castillo RNAuthorized by: Heriberto York MD Consent: Consent obtained: Verbal Consent given by: Patient Risks discussed: Arterial puncture, incorrect placement, nerve damage, bleeding, infection, superficial thrombus and deep vein thrombus Alternatives discussed: Delayed treatment and no treatmentUniversal protocol: Procedure explained and questions answered to patient or proxy's satisfaction: yes Relevant documents present and verified: yes Test results available and properly labeled: yes Imaging studies available: yes Required blood products, implants, devices,and special equipment available: yes Site/side marked: yes Immediately prior to procedure, a time out was called: yes Patient identity confirmed: Verbally with patient, arm band and hospital-assigned identification numberPre- procedure details: Hand hygiene: Hand hygiene performed prior to insertion Sterile barrier technique: All elements of maximal sterile technique followed Skin preparation: 2% chlorhexidine Skin preparation agent: Dried prior to procedure Anesthesia (see MAR for exact dosages): Anesthesia method: Local infiltration Local anesthetic: Lidocaine 1% w/o epiRoute administered: SubcutaneousMidLine Placement Details (Will create an LDA): Patient position: Flat Vessel Size (mm): 4 Indication: Poor venous access Location: Left basilic Site selection rationale: Preference Device Type: Non-valved Catheter Lumen(s): Double lumen Catheter size:5 Fr Catheter to vein ratio: 43%MidLine Characteristics: Catheter Brand: NX Pharm[employer] midline External Catheter Length (cm): 0 Internal Catheter Length (cm): 15 Total Catheter Length (cm): 15 Catheter Lot Number: [id number] Catheter Expiration Date: 1Procedure details: Landmarks identified: yes Ultrasound guidance: yes Sterile ultrasound techniques: Sterile gel and sterile probecovers were used Number of attempts: 1 Number of MidLine kits used during procedure: 1 Extra guide wire required?: No Purpose of procedure: Midline Placement Patency/Placement: Flushes without difficulty, flushed with 10 mL normal saline, positive blood return, injection cap placed and ultrasound MidLine placed utilizing ultrasound-guided Modified Seldinger Technique: Yes Dressing/Securement: Catheter securement device and antimicrobial dressing applied Blood Loss Amount: Less than 20 mLPost-procedure details: Post- procedure: Dressing applied Patient tolerance of procedure:Tolerated well, no immediate complicationsPlainwell MethodistXR Chest 1 [id number] 14:02:37Hm Interface, Radiology Results - 08/11/2020 2:05 PM CSTEXAMINATION: XR CHEST 1 VW PORTABLECLINICAL HISTORY: [id number]: [facility]Heart normal in size. Pulmonary vasculature normal. No focal infiltrates or effusions. Lungs clear. No definite plain film evidence of COVID-19 pneumonia. Subtle groundglass infiltrates may not be visible by chest x-ray. CT could be performed.[id number] Mandaen Gastrointestinal tjfmw5611-23-11 12:30:06 Test Item Value Reference Interpretation Comments Range Adenovirus 40/41 PCR Not Detected Specime n (test code = 7113) Informati onSpecimen Source: StoolSp ecimen Site: Nonpreser arturo Astrovirus PCR (test Not Detected code = 4790) Campylobacter PCR Not Detected (test code = 7114) Clostridioides Not Detected difficile PCR (test code = 7115) Cryptosporidium PCR Not Detected (test code = 7116) Cyclospora Not Detected cayetanensis PCR (test code = 7117) Enteroaggregative E Not Detected coli PCR (test code = 4784) Entamoeba histolytica Not Detected PCR (test code = 7118) Enteroinvasive E coli Not Detected PCR (test code = 4788) Enteropathogenic E Not Detected coli PCR (test code = 4785) Norovirus PCR (test Not Detected code = 7119) Plesiomonas Not Detected shigelloides PCR (test code = 4782) Rotavirus PCR (test Not Detected code = 4913396) Salmonella PCR (test Not Detected code = 4783) Sapovirus PCR (test Not Detected code = 4791) Enterotoxigenic E coli Not Detected PCR (test code = 4786) Shigatoxin producing E Not Detected coli PCR (test code = 4787) E coli O157 PCR (test Not Reported code = 7120) Vibrio PCR (test code Not Detected = 7121) Vibrio cholerae PCR Not Detected (test code = 7122) Yersinia Not Detected enterocolitica PCR (test code = 7123) Giardia lamblia PCR Not Detected (test code = 7124) Catracho MarquezHemoglobin [id number] 08:12:25 Test Item Value Reference Range Interpretation Comments Hemoglobin A1C (test 4.7 % 4-5.6 HbA1c c utoffs for code = 05812-8) diagnosing d iabetes:4.0% - 5.6% = normal 5.7% - 6.4% = increase d risk for diabetes (prediabetes)9> =6.5% = zsatorky6Rgrdr for glycemic contro l (ADA 2016)< 7.0% Ta rget for non rudi lts with diabetes. More or less stringent targe ts may be appropriate for individual aspen ents. <7.5% Target for Children and ad olescents with type 1 cindy betes. Catracho McconnellXcvomxoppK46738-19-00 06:55:40 Test Item Value Reference Range Interpretation Comments T4 (test code = 3026-2) 3.3 ug/dL 4.5-11.7 L Lab Interpretation (test code = Abnormal 31132-3) Catracho MarquezThyroid stimulating pepiate9927-09-54 06:55:39 Test Item Value Reference Range Interpretation Comments TSH (test code = 3016-3) 3.26 0.27- 4.20 uIU/mL Catracho MarquezCOVID-19 qualitative [id number] 04:46:54 Test Item Value Reference Range Interpretation Comments Interpretation (test Positive results code = 6140368) are indicative of active infection with 2019-nCoV but do not rule out bacterial infection or coinfection with other viruses. The agent detected may not be the definite cause of disease. COVID-19 qualitative Detected Not-Detected A PCR result (test code = 28860-2) COVID-19 qualitative See link below for C ase Number: PCR (test code = PDF Lab Report [id number]) Lab Interpretation Abnormal (test code = 94818-4) [facility] MethodistECG 12 [id number] 22:38:14 Test Item Value Reference Range Interpretation Comments Ventricular rate (test 70 code = 253) Atrial rate (test code 70 = 255) HI interval (test code 158 = 266) QRSD interval (test 80 code = 260) QT interval (test code 404 = 264) QTC interval (test code 436 = 265) P axis 1 (test code = 38 267) QRS axis 1 (test code = 22 268) T wave axis (test code 31 = 270) EKG impression (test Normal sinus code = 273) rhythm-Normal ECG-In automated comparison with ECG of 04-JUL-2020 18:50,-No significant change was found- [facility] MethodistVenous blood [id number] 16:28:37 Test Item Value Reference Range Interpretation Comments pH, venous, POC (test code = 7.37 7.32-7.42 2746-6) pCO2, venous, POC (test code = 38 45- 51 mm Hg L 2020-4) pO2, venous, POC (test code = 28 25- 40 mm Hg 5-2) Base excess, venous, POC (test -3 mmol/L -2-2 L code = 1927-3) Bicarbonate, venous, POC (test 22.2 mmol/L code = 58274-4) O2 saturation, venous, POC (test 51 % 40-70 code = 2711-0) Lab Interpretation (test code = Abnormal 63978-5) [facility] MethodistLactic acid, A-[id number] 16:28:37 Test Item Value Reference Range Interpretation Comments Lactic acid, I-Stat (test code = 1.3 mmol/L 0.5-2.2 85863-2) [facility] MethodistCT Renal Stone Vfcufsts7837-13-74 18:31:00 Interface, Radiology Results - 08/08/2020 6:34 PM CSTEXAMINATION: CT RENAL STONE PROTOCOLCLINICAL HISTORY: abdominal pain allergic to contrastTECHNIQUE: Multiple axial CT images of theabdomen and pelvis are obtained without the use of intravenous contrast. Coronal and sagittal 3-D reconstructions are obtained.CT scans are performed using radiation dose reduction techniques. Technical factors are evaluated and adjusted to ensure appropriate moderation of exposure. Automated dose management technology is applied to adjust radiation exposure while achieving a diagnostic quality image.COMPARISON: 05/30/2020FINDINGS:Abdomen:The evaluation of the solid organs is limited without the use of intravenous contrast.The visualized LOWER LUNG ZONES demonstrates minimal atelectasis at the lower lung bases.The LIVER does not have any solid masses. There is no intrahepatic biliary dilatation. A TIPS catheter is present.The GALLBLADDER is absent..The PANCREAS does not demonstrate any monica s.The SPLEEN is minimally enlarged and measures 13.6 cm. The ADRENAL GLANDS have a unremarkable CT appearance.The ABDOMINAL AORTA has no aneurysmal dilatation. There is no retroperitoneal adenopathy.The KIDNEYS do not have any stones or hydronephrosis. The left kidney has a 4.4 cm cyst seen posteriorly in the mid pole.CT PELVIS: There is no evidence of any pneumoperitoneum. Stomach and duodenum do not have any wall thickening. Small bowel is not dilated. There is no free fluid seen within the abdomen or the pelvis.The uterus is present. The bladder does not demonstrate any masses.The colonic wall does not have any focal wall thickening. There is no focal inflammatory change. Moderate colonic fecal retention is present.IMPRESSION:1. There is no focal bowel obstruction nor any dilated loops of bowel.2. There are changes of prior hernia repair with mesh placement.3. A TIPS catheter is seen within the liver. The liver has a nodular appearance. There are no masses seen on the noncontrast study.4. The spleen is minimally enlarged.5. The small bowel and colon do not have any focal inflammatory change.OPC-[id number] MethodistCreatine kinase, total (CPK) 2020-08-08 18:13:51 Test Item Value Reference Range Interpretation Comments Creatine kinase (test code = 2157-6) 54 U/L 30-190 [facility] MethodistB natriuretic pep, W-Prym3350-88Mozh0458-34-25 18:13:51 Test Item Value Reference Range Interpretation Comments BNP, I-Stat (test code = 18693-4) 42 pg/mL 0-100 [facility] MethodistTroponin, V-[id number] 18:13:51 Test Item Value Reference Range Interpretation Comments Troponin, I-Stat 0.01 ng/mL 0-0.08 0.09 - 1.49 ng/ml (test code = 2359) May indic ate increased risk of acute coronary syndro me. >=1.5 ng/ml Consistent with acute myocardial infar ction. The diagnostic valu e of a single normal o r non-diagnostic result is questionable. Serial samples at 2-6 hour intervalsare re quired to rule out acute myocardial injury. [facility]cc[facility]nellEC[facility] Preliminary Interpretation - Not an Hnfqe2915-85-02 17:56:48Janelle Watts MD 08/08/2020 7:07 [facility] ED Preliminary Interpretation - Not an OrderPerformed by: Janelle Wtats MDAuthorized by: Janelle Watts MD ECG reviewed by ED Physician in the absence of a conditioning coach: yes Interpretation: Interpretation: normal Rate: ECG rate: 70 ECG rate assessment: normal Rhythm: Rhythm: sinus rhythm Ectopy: Ectopy: none QRS: QRS axis: Normal QRS intervals: NormalConduction: Conduction: normal ST segments: ST segments: NormalT waves: T waves: normalHouston MethodistMiscellaneous referral [id number] 13:43:50 Test Item Value Reference Interpretation Comments Range Misc test phosphatidylethanol name (test code = 2566) Misc test SEE NOTE Phosphatidyleth anol (PEth), result Whole Blood, Qu antitative (test code ARUP test code 2179310 = 1730) PEth 16:0/18:1 (POPEth) <10 ng/mL INTERPRE TIVE INFORMATION:Deb sphatidyleth anol (PEth), Wh ole BloodPhosphatid ylethanol (PEth) homologu es Result Interpretation PEth 16:0/18:1 (EATON th) Less than 10 ng/mL.......... ..Not detectedLess th an 20 ng/mL.......... ..Abstinence or light alcoho l crjisgdygyz33 - 200 ng/mL.......... ......Modera te alcohol consumptionGrea ter than 200 ng/mL........He bill alcohol consumption or chronic alcohol use PEt h 16:0/18:2 (PLPEth)....... Reference ranges are not well established.(Re ference: Jesica Adan and Dante Torres 2018 J. Forensic Sci ) Phosphatidyleth anol (PEth) is a group of p hospholipids formed in the p resence of ethanol, phosph olipase D and phosphatidy lcholine. PEth is known t o be a direct alcohol biomarker. The predominant PEth homologues are PEth 16:0/18:1 (EATON th) and PEth 16:0/18:2 (PLPE th), which account for 37- 46% and 26-28% of the t otal PEth homologues, res pectively. PEth is incorpo rated into the phospholipi d membrane of red blood ce lls and has a general half- life of 4 - 10 days and a w indow of detection of 2- 4 weeks. However, the wi ndow of detection is lo nger in individuals who chronically or excessively consume alcohol. The li matt of quantification is 10 ng/mL. Serial monitori ng of PEth may be helpful in monitoring alco hol abstinence over time. PEth results should be interpreted in the context of the patient' s clinical and behavioral history. Patients with a dvanced liver disease m ay have falsely elevate d PEth concentrations (Mirna MOHAN et al 2018, Alc oholism Clinical & Expe rimental Research). Test developed and characteris tics determined by [facility]. S ee Compliance Stat ement B: [employer]/CS - - - - - - - - - - - - - - - - - - - - - - - - - - - - - - PEth 16:0/18:2 (PLPE th) <10 ng/mL =====Test perfo rmed by:[employer] [place], [place] [address]sic metabolic odriz2267-08-47 05:45:46 Test Item Value Reference Range Interpretation Comments Sodium (test code = 2951-2) 145 135- 148 mEq/L Potassium (test code = 2823-3) 4.0 3.5- 5.0 mEq/L Chloride (test code = 2075-0) 117 98- 112 mEq/L H CO2 (test code = 2027-9) 18 24- 31 mEq/L L Anion gap (test code = 20141-1) 10@ANIO 7- 15 mEq/L BUN (test code = 3094-0) 14 mg/dL 6-20 Creatinine (test code = 2160-0) 1.27 mg/dL 0.5-0.9 H Glucose (test code = 2345-7) 75 mg/dL 65-99 Calcium (test code = 98187-1) 9.6 mg/dL 8.3-10.2 Lab Interpretation (test code = Abnormal 79931-6) Catracho MethodistHepatic function [id number] 05:45:46 Test Item Value Reference Range Interpretation Comments Albumin (test code = 3.7 g/dL 3.5-5 1750-7) Total bilirubin (test 1.1 mg/dL 0-1.2 code = 1974-2) Bilirubin direct (test 0.3 mg/dL 0-0.3 code = 1967-7) Alkaline phosphatase 102 U/L 35-104 (test code = 6768-6) Protein (test code = 6.5 g/dL 6.3-8.3 -[place] n 2885-2) 4.6-7.0 g /dL1 week 4.4-7.6 g/dL 7 months-1year 5.1-7.3 g/dL 1-2 years 5.6-7.5 g/dL>3 years 6.0-8.0 g/qE36-683 6.3-8. 3 g/dL ALT (test code = 1742-6) 18 U/L 5-50 AST (test code = 1920-8) 36 U/L 10-35 H Lab Interpretation (test Abnormal code = 73613-5) Catracho MethodistZinc level, [id number] 15:31:48 Test Item Value Reference Range Interpretation Comments Zinc (test code 93.0 ug/dL 60-120 INTERPRETIVE INFORMATION: = 19861-4) Zinc, Serum or PlasmaElevated results may be [...] dependent on al bumin status and are depress ed with malnutrition. Zinc may also be lowered with infection, infl ammation, stress, oral contraceptives, and . Zin c may be elevated with z inc supplementation or fasting. Elevated zinc concentrations may interfere with copper absorption. Etienne t developed and characteris tics determined by [facility]. S ee Compliance Stat ement B: [employer]/CSP erformed By: [facility] [place], [place] [address]Hgkhcdh or Director: MD Catracho Choi MethodistVitamin D 25 hydroxy [id number] 15:11:43 Test Item Value Reference Range Interpretation Comments Vitamin D, 25-hydroxy 8.9 ng/mL 30-150 L This a ssay reports (test code = 1989-3) the sum of 25-hydroxy vitamin D3 and 25-hydroxy wanda min D2. Reference range:0-17 years:Deficienc y: less than 20ng/mLOptimum level: greater than or equal to 20 ng/mL.18 years and older:Defic iency: less than 20ng/mLInsuffic iency: 20-29 ng/mLOpti mum Level: 30-80 ng /mLThe assay reportabl e range is 3.4 1 55.9 ng/mL. Levels h igher than 150 ng/mL may be associated with toxicity.If tox icity is clinically suspected and t he reported result is >155.9 ng/mL,co ntact lab for alterna tive methods to obta in a definitive lev el.If separate quanti tation of 25-hydroxy v itamin D3 and 25-hydro xy vitamin D2 is n eeded, please contact lab for alternative methods. Lab Interpretation Abnormal (test code = 85766-7) Catracho MethodistAlpha sggymzqfcqv9838-89-67 07:13:00 Test Item Value Reference Range Interpretation Comments Alpha fetoprotein 1.1 ng/mL 0-8.3 The Delilah 8000 AFP (test code = immunoassay was used. 73009-4) Results obtaine d with different assay methods or kits should not be used interchang eably and may be differen t. Catracho MethodistLactic acid [id number] 18:58:26 Test Item Value Reference Range Interpretation Comments Lactic acid (test code = 81056-0) 1.5 mmol/L 0.5-2.2 Catracho MarquezUrine drugs of abuse vabxhj8890-22-44 17:18:34 Test Item Value Reference Interpretation Comments Range Amphetamine screen, Negative urine (test code = 3349-8) Barbiturate screen, Positive A urine (test code = 3377-9) Benzodiazepine Negative screen, urine (test code = 3390-2) Cocaine screen, Negative urine (test code = 3397-7) Methadone Negative metabolite (EDDP), urine (test code = 46467-1) Opiates screen, Negative urine (test code = 3879-4) Oxycodone screen, Negative urine (test code = 53467-3) Phencyclidine Negative screen, urine (test code = 3936-2) Tricyclic screen, Negative urine (test code = 44993-4) Cannabinoid screen, Negative Drug scr een minimum [...] if d efinitive testing is requ ired. Lab Interpretation Abnormal (test code = 23341-0) Catracho OfnfsjnwqVyziejyjce0267-90-71 13:03:28 Test Item Value Reference Range Interpretation Comments Glucose, UA (test code Negative Negative = 10409-9) Bilirubin, UA (test Negative Negative code = 5770-3) Ketones, UA (test code Negative Negative = 2514-8) Specific gravity, UA 1.015 1.001-1.035 (test code = 5811-5) Blood, UA (test code = Negative Negative Opera tor Name: 5794-3) traineeDevice I D: 077835 pH, UA (test code = 5.0 5.0-8.5 5803-2) Protein, UA (test code Negative Negative = 17007-2) Urobilinogen, UA (test <2.0 <2.0 code = 27700-0) Nitrite, UA (test code Positive Negative A = 5802-4) Leukocyte esterase, UA Negative Negative (test code = 5799-2) Color, UA (test code = Yellow 5778-6) Appearance, UA (test Cloudy code = 5767-9) Lab Interpretation Abnormal (test code = 87506-3) [facility] Chest 1 Te4068-56-20 12:40:22 Interface, Radiology Results Incoming - 07/04/2020 12:43 PM CSTEXAMINATION: XR CHEST 1 VWCLINICAL HISTORY: SOBCOMPARISON: Most Recent Prior at HIMPRESSION:Lines: NoneLungs and pleura: No consolidations. No pleural effusion or pneumothorax.Heart and mediastinum: Stable appearance of cardiomediastinal silhouette. Bones: No suspicious osseous lesions. [facility] [place]-[id number] MethodistCT Head Wo Qznevbeg0633-12-08 12:25:33 Interface, Radiology Results Incoming - 07/04/2020 12:28 PM CSTEXAM: CT HEAD WO CONTRASTCLINICAL HISTORY: Altered level of consciousness (LOC) unexplainedTECHNIQUE: Noncontrast enhanced images of the brain were obtained from the skull base to the vertex. Both soft tissue and bone reconstruction alg orithms were performed. CT scans are performed using radiation dose reduction techniques (iterativereconstruction and/or automated exposure control). Technical factors are evaluated and adjusted to ensure appropriate moderation of exposure. Automated dose management technology is applied to adjust radiation exposure while achieving a diagnostic quality image.COMPARISON: 05/30/2020.FINDINGS:The gomez-white matter differentiation is preserved and without evidence of acute territorial infarction. There is no evidence for acute intracranial hemorrhage, mass, mass effect, hydrocephalus, or extra-axialfluid collection.Subtle physiological calcifications seen at the right globus pallidus.Orbits are unremarkable. Small mucosal retention cyst is identified inferiorly within the right maxillary sinus. Remaining paranasal sinuses are clear. Mastoid air cells are normally pneumatized. Osseous structures are intact.IMPRESSION:No CT evidence for acute intracranial abnormality.BOP-[id number] MethodistCB hynjzudp8702-49-97 06:29:09 Test Item Value Reference Range Interpretation Comments WBC (test code = 38250-9) 5.86 4.50- 11.00 k/uL RBC (test code = 53908-0) 2.95 m/uL 4.2-5.5 L HGB (test code = 718-7) 8.7 g/dL 12-16 L HCT (test code = 4544-3) 26.7 % 37-47 L MCV (test code = 787-2) 90.5 fL 82-100 MCH (test code = 785-6) 29.5 pg 27-34 MCHC (test code = 786-4) 32.6 g/dL 31-37 RDW - SD (test code = 62766-4) 58.3 fL 37-55 H MPV (test code = 95713-1) 11.3 fL 8.8-13.2 Platelet count (test code = 103 150- 400 k/uL L 43399-2) Nucleated RBC (test code = 0.00 /100 WBC 33083-1) Lab Interpretation (test code = Abnormal 26927-8) [facility] JayeshistXR Hand 3+ Vw Vpbl2405-16-04 20:31:08Hm Interface, Radiology Results - 06/02/2020 8:34 PM CDTEXAMINATION: XR HAND 3 VW LEFTCLIN ICAL HISTORY: Fracture handCOMPARISON: None available.IMPRESSION: 1. The bones are mildly demineralized. 2. Subacute appearing extra-articular fracture of the left fifth metacarpal neck with dorsal apex angulation.3. Faint lucency through the distal radius could represent a nondisplaced fracture, correlation with point tenderness and advanced imaging as indicated.4. 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.[id number] Mandaen Prepare RBC, 1 Bsnwe5200-41-97 15:45:00 Test Item Value Reference Range Interpretation Comments Product name (test code Red Cells AS1 Leukored = 25) Irrad Unit number (test code [id number] = 2938356) Product code (test code G8914L84 = 3092) Dispense status (test Transfused code = 24) Blood expiration date (test code = 302) Blood type code (test 6200 code = 308) Blood type (test code = A POSITIVE 1314) Compatibility (test Compatible code = 6400) Catracho Cappsar uizpqb9400-20-63 10:14:16 Test Item Value Reference Range Interpretation Comments Platelet slide review (test code = Decreased A 63897-8) Anisocytosis (test code = 702-1) Moderate Tear drop cells (test code = Occasional 7791-7) Spherocytes (test code = 802-9) Occasional Ovalocytes (test code = 774-0) Moderate Lab Interpretation (test code = Abnormal 66906-9) Catracho MarquezVENIPUNC NEED PHYS SKILL,DX OR UJ1749-58-40 13:55:27Jalen Ghosh RN 06/01/2020 1:57 PMMidline Date/Time: 06/01/2020 1:55 PMPerformed by: Samanta Ravi, RNAuthorized by: Jennifer Ghosh MD Consent: Consent obtained: Verbal Consent given by: PatientRisks discussed: Arterial puncture, incorrect placement, nerve damage, bleeding, infection, pneumothorax, superficial thrombus and deep vein thrombusUniversal protocol: Procedure explained and questions answered to patient or proxy's satisfaction: yes Relevant documents present and verified: yes Test results available and properly labeled: yes Imaging studies available: yes Required blood products, implants, devices, and special equipment available: yes Site/side marked: yes Immediately prior to procedure, a time out was called: yes Patient identity confirmed: Verbally withpatient, arm band, hospital-assigned identification number and provided demographic dataPre-procedure details: Hand hygiene: Hand hygiene performed prior to insertion Sterile barrier technique: All elements of maximal sterile technique followed Skin preparation: 2% chlorhexidine Skin preparation agent: Dried prior to procedure Anesthesia (see MAR for exact dosages): Anesthesia method: Local infiltration Local anesthetic: Lidocaine 1% w/o epi Route administered: SubcutaneousMidLine Placement Details (Will create an LDA): Patient position: Flat Vessel Size (mm): 4 Indication:Poor venous access Location: Right basilic Device Type: Non-valved Catheter Lumen(s): Double lumen Catheter size: 4 Fr Catheter to vein ratio: 35MidLine Characteristics: Catheter Brand: BARD PROVENA POWER MIDLINE External Catheter Length (cm): 0 Internal Catheter Length (cm): 11 Total Catheter Length (cm): 11 Catheter Lot Number: [id number] Catheter Expiration Date: 1Procedure details: Landmarks identified: yes Ultrasound guidance: yes Sterile ultrasound techniques: Sterile gel and sterile probe covers were used Number of attempts: 1 Number of MidLine kits used during procedure: 1 Extra guide wire required?: No Purpose of procedure: Midline Placement Patency/Placement: Flushes without difficulty, flushed with 10 mL normal saline, positive blood return and injection cap placed MidLine placed utilizing ultrasound-guided Modified Seldinger Technique: Yes Dressing/Securement: Antimicrobial dressing dry and intact, catheter securement device andtransparent semipermeable dressing Blood Loss Amount: Less than 20 mLPost-procedure details: Post-procedure: Dressing applied Patient tolerance of procedure: Tolerated well, no immediate complicationsPlainwell MethodistType and oiwkuu6019-66-31 06:49:00 Test Item Value Reference Range Interpretation Comments ABO grouping (test code = 883-9) A Rh type (test code = 14859-2) POS Antibody screen (gel) (test code = NEG 890-4) [facility] MethodistAlcohol level, zbacd8791-39-56 01:25:09 Test Item Value Reference Range Interpretation Comments Alcohol percent None Detected % Normal (test code = None Detec tedLegal 5643-2) Intoxication in [place] 80 mg/dL (0.08% ) - Whole BloodToxi c Concentration 200 mg/dL (0.2%)Potential ly Fatal 350 - 500 mg/dL (0.35 - 0 .5%) [facility]CT Abdomen Pelvis Wo Hvtdmewp3900-24-40 20:27:58Hm Interface, Radiology Results 05/30/2020 8:31 PM CDTCT ABDOMEN PELVIS WO CONTRASTCLINICAL INDICATION: Abd pain unspecifiedTECHNIQUE: Multidetector CT of the abdomen and pelvis was performed without intravenous administration of iodinated contrast with multiplanar reformats.CT scans areperformed using radiation dose reduction techniques (iterative reconstruction and/or automated exposure control). Technical factors are evaluated and adjusted to ensure appropriate moderation of exposure. Automated dose management technology is applied to adjust radiation exposure while achieving a diagnostic quality image.COMPARISON: CT 04/13/2020. FINDINGS:Evaluation of abdominopelvic contents limited due to lack of IV contrast.Lung bases: Dependent subsegmental atelectasis/scarring.Liver: Chronicliver disease. TIPS catheter present.Gallbladder and biliary: The gallbladder is absent. Clips within the gallbladder fossa. Common bile duct is not dilated. Pancreas: Normal.Spleen: Enlarged up to 13.5 cm.Gastrointestinal: Large and small bowel are normal in caliber. Appendix not visualized.Adrenals: Normal. Kidneys and ureters: 1 mm calculus in midpole of right kidney. 2 mm calculus in midpoleof left kidney. No ureteral calculi. No hydronephrosis. Left renal cyst measuring 4.3 cm, stable.Urinary bladder: Normal.Lymph nodes: No enlarged lymph nodes in the abdomen or pelvis.Peritoneum: No ascites or free air.Vascular: Mild atherosclerotic changes of the abdominal aorta and major branch vessels. Evaluation of vessel lumens is limited due to lack of IV contrast.Reproductive organs: Uterus is normal. Right adnexal cyst measuring 4.5 x 2.3 cm, stable.Abdominal wall: Ventral hernia mesh repair.Bones: Moderate degenerative disc changes at L2-L3.IMPRESSION:Cirrhosis, status post TIPS. Mild splenomegaly.Nonobstructive bilateral nephrolithiasis. Stable right adnexal cyst.[facility]-[id number] Regional Medical Center Brain & Orbit W Wo Contrast 2020-05-27 17:55:04Hm Interface, Radiology Results 05/27/2020 5:58 PM CDTEXAM: MRI BRAIN & ORBIT W WO CONTRASTCLINICAL HISTORY: H53.15 Visual distortions of shape and size, VISUAL DISTORTION OF SHAPETECHNIQUE: Multiplanar and multisequence MRI imaging of the brain was obtained with and without contrast. Thin cut imaging through the orbits was also obtained.COMPARISON: CT brain, 05/13/2020; MRI, 03/18/2020FINDINGS:No diffusion restriction to suggest acute infarct.Parenchymal volume is within normal limits.There is no abnormal parenchymal or leptomeningeal enhancement. No acute intracranial hemorrhage, mas s, hydrocephalus, or extra-axial fluid collection identified.Although this examination is not optimized for the sella, pituitary is grossly normal in appearance. Midline structures are maintained. The major flow voids in the skull base are identified. Orbits are unremarkable. No abnormal T2/FLAIR hyperintense signal is seen along the bilateral optic nerves nor abnormal optic nerve enhancement. CSF issymmetric within the bilateral optic nerve sheaths. Moderately sized mucosal retention cyst is identified inferiorly within the right maxillary sinus. Remaining paranasal sinuses are clear. Mastoid aircells are normally pneumatized. IMPRESSION:No acute intracranial abnormality identified. There is noenhancing lesion in the brain. Orbits are unremarkable in appearance.BOP-[id number] MethodistXR Abdomen 1 Vw Dpljcewp6171-56-39 18:59:53Hm Interface, Radiology Results - 05/16/2020 7:02 PM CDTEXAMINATION: XR ABDOMEN 1 VW PORTABLEINDICATION: Abd pain unspecified, generalzied abdominal pain rule out constipationCOMPARISON: February 19, 2020IMPRESSION:Nonobstructive bowel gas pattern. Colonic stool burden is within normal limits.Prior ventral hernia repair. TIPS in place. Prior cholecystectomy.[id number]_PS01[facility] MethodistCRITICAL XBQI5912-10-25 15:22:15 Vamsi Johnson MD 05/13/2020 5:45 PMCritical CarePerformed by: Vamsi Johnson MDAuthorized by: Vamsi Johnson MD Critical care provider statement: Critical care time (minutes): 40 Critical care time was exclusive of: Separately billable procedures and treating other patients Critical care was necessary to treat or prevent imminent or life-threatening deterioration of the following conditions: Dehydration, sepsis and hepatic failure Critical care was time spent personally by me on the following activities: Blood draw for specimens, development of treatment plan with patient or surrogate, evaluation of patient's response to treatment, examination of patient, obtaining history from patient or surrogate, ordering and performing treatments and interventions, ordering and review of laboratory studies, ordering and review of radiographic studies, pulse oximetry, re-evaluation of patient's condition, review of old charts, discussions with consultants and discussions with primary provider Zion 'yes' if you are taking over critical care for this patient from another provider.: Toni MethodistXR Knee 3 Vw Duemz7861-80-30 14:39:39Hm Interface, Radiology Results Incoming - 05/13/2020 2:42 PM CDTEXAMINATION: XR KNEE 3 VW RIGHTCLINICAL HISTORY: Knee pain initial examCOMPARISON: None.IMPRESSION:There is no evidence of right knee fracture, dislocation, or joint effusion. Bone mineralization is normal.[facility]-[id number] Mandaen Prothrombin time with INR, J-Rlsp0045-53Dfpv9767-49-14 13:37:49 Test Item Value Reference Range Interpretation Comments POC prothrombin time 16.3 11.0- 14.5 sec H (test code = 5964-2) POC INR (test code = 1.4 [facility] 87494-7) Normalized Rati o (INR) is a therapeuti c monitoring tool for patients who ar e stable on oral vitamin K antagonist th erapy. An INR of 2.0-3 .0 is suggested for d eep vein thrombosis/pulm onary embolism. An IN R of 2.5-3.5 (high d ose) is suggested for s ome patients with mechanical hear t valves) Lab Interpretation Abnormal (test code = 60560-3) [facility] MethodistBilirubin fuhziy0053-91-78 07:11:52 Test Item Value Reference Range Interpretation Comments Bilirubin direct (test code = 0.4 mg/dL 0-0.3 H 1967-7) Lab Interpretation (test code = Abnormal 17718-7) [facility] MandaenPOC sbjxhfc2020-55-56 20:26:10 Test Item Value Reference Range Interpretation Comments POC glucose (test code 128 mg/dL 65-99 H Opera tor Name: Carbon = 82097-4) CatherineDevice ID: [id number] able: [facility] Notified RNChartable: No Action Needed Lab Interpretation Abnormal (test code = 70657-5) [facility] MandaenI Brain Wo Qqqsawuf7476-86-77 22:35:58Hm Interface, Radiology Results Incoming - 03/18/2020 10:39 PM CDTEXAMINATION: MRI BRAIN WO [...] ear cavities are clear.IMPRESSION:No acute intracranial abnormality identified.[id number]-[id number] [facility] MethodistIonized nqzgmol2436-40-47 19:42:14 Test Item Value Reference Range Interpretation Comments pH (test code = 2753-2) 7.37 Ionized calcium (test code = 1.08 mmol/L 1.11-1.32 L ) Lab Interpretation (test code = Abnormal 53646-7) [facility] MethodistAmylase uywrq8936-47-61 17:07:38 Test Item Value Reference Range Interpretation Comments Amylase (test code = 1798-8) 78 U/L 14-97 [facility] MethodistCv stress vaga1312-25-99 05:27:49 Test Item Value Reference Range Interpretation Comments Resting HR (test code 65 = 1591186880) Resting BP (test code 124&62 = 9313480883) Peak MET Achieved 1 (test code = 6107308224) Protocol Name (test DOBUT/ECHO code = 5444594447) Time in Exercise 00:15:00 Phase (test code = 8924846772) Max Systolic BP (test 182 code = 7524390596) Max Diastolic BP 69 (test code = 6339426198) Max Heart Rate (test 137 code = 9075987199) Max Predicted Heart 162 Rate (test code = 7488584693) Target HR Formula (220 - Age)*100% (test code = 3369457810) Test Indication (test LIVER TRANSPLANT code = 3251865709) Arrhy During Ex (test code = 6042217697) ECG Interp Before EX (test code = 9029743509) ECG Interp During Ex (test code = 8660959391) Ex Summary Comment (test code = 9078791978) Overall HR Response to Exercise (test code = 5808099560) Overall BP Response To Exercise (test code = 5069447007) Reason for Protocol Complete Termination (test code = 0088777884) Stress Test -Waveform interpreted in Impression (test code report associated with = 0888838776) image study. No interpretation is provided as part of this Stress ECG report.-Electronically Signed By Owen FRANKLIN, Scott Wiseman ([id number]), senior editor Marisol Hicks ([id number]) on 03/15/2020 5:27:46 AM [facility]ressTransthor[facility] Echocardi[facility] Stress, (w Doppler, w Contrast if needed)2020-03-14 14:03:00Interface, Radiology Results In - 03/14/2020 2:03 PM CDT Stress Echocardiography Report [address], [place], [place] [address] Stress ECG tracings are available in [employer], [email or web address] and [email or web address] All ECG interpretations are included in this report Pat.Name: SUDARSHAN GREGORY Pat.ID: [id number] .Date: 03/14/2020 Refer.MD: ANGELA ROPER MD Exam Time: 10:00:00 AM Study Type:Stress Echo Height: 59in Weight: 200lb BSA: 1.85 m2 Age: 11 1960,59Y Sex: FEMALE BP: 124/62 HR: 62 bpm Sonogrphr: Janelle Mills RDCS, RVTPat. Stat.:Outpatient Room: [facility] Study Status:Final Echo Event ID:[id number] Order ID: [id number] Reason for Study:Liver transplant candidate History / Clinical:Edema, CirrhosisProcedures: Intravenous Definity Contrast, Stress Echo/Dobutamine andColorflow DopplerRace: C SUMMARY: Overall Stress Interp: Normal Stress echo. No evidence of ischemia at 84% of maximal predicated HR.Normal dobutamine stress echocardiogram despite achieving only 84% ofmaximum predicted heart rate. Rate-pressure product sufficient ie87555. FINDINGS: Resting FindingsLV: LV size is normal. [...] %MaxBP 168/72 O2 Sat 96 %Max RPP 50449 Symptoms and Complications:Arrhythmias PVCsReason for Stopping Test: [...] normal populatio n MEASUREMENTS: ------ 2DParasternal Long [place] Ao An 1.8 cm LVPWd 0.7 cm [...] 2.9 l/m/m2 Signed 03/14/2020 02:03 Ernesto Segura MethodistPartial thromboplastin time, activated 2020-02-18 12:06:51 Test Item Value Reference Range Interpretation Comments PTT (test code = 37.4 23.0- 36.0 sec H PTT thera peutic range 92096-3) for unfractiona barron heparin is61.0- 112.0 seconds which corresponds to Anti-Xa0.3-0.7 U/ml. Lab Interpretation Abnormal (test code = 82198-1) Catracho MarquezOpiates, s/p, gzhhk9913-19-19 23:59:17 Test Item Value Reference Range Interpretation Comments 6-acetylmorphine <2 ng/mL INTERPRETIV E INFORMATION: , s/p, quant Opiates, Serum or Plasma, (test code = 13709-2) QuantitativeMet hodology: Quantitative Li quid Chromatography- Tandem [...] questions shoul d be directed to the laborato ry.Test developed and c haracteristics determined by [facility]. S ee Compliance Statement B: ar M2Gab.Preventes.fr/CS Codeine, s/p, <2 ng/mL quant (test code [...] (test Laboratorie s,[address], code = [address]6490-8) [place] [address] afw .[employer], Arpit Liu MD, Lab. Director [facility] kim 9, ser/carolyn, scrn w/rflx to ivrz2767-18-05 18:46:42 Test Item Value Reference Range Interpretation Comments Amphetamines, s/p, Negative Cutoff 30 ng/mL screen (test code = 8149-7) Methamphetamine, Negative Cutoff 30 ng/mL s/p, screen (test code = 3777-0) Barbiturates, s/p, Negative Cutoff 75 ng/mL screen (test code = 53372-4) Benzodiazepines, Negative Cutoff 75 ng/mL s/p, screen (test code = 07861-3) Cocaine, s/p, Negative Cutoff 30 ng/mL screen (test code = 8191-9) Methadone, s/p, Negative Cutoff 40 ng/mL screen (test code = 38782-9) Opiates, s/p, Positive Cutoff 30 ng/mL If the scre en is positive, screen (test code then confi rmation by mass = 8219-8) spectrometry wi ll be added. Additional tawanda ges will apply. Unconfir med positive may be useful f or medical purposes, but d oes not meet forensic standa rds. Oxycodone, s/p, Negative Cutoff 30 ng/mL screen (test code = 96684-7) Phencyclidine, Negative Cutoff 15 ng/mL s/p, screen (test code = 8236-2) Cannabinoids, s/p, Negative Cutoff 30 ng/mL screen (test code = 8172-9) Drug screen See Note INTERPRETIVE IN FORMATION: comments, serum Drug Screen 9 Panel, Serum (test code = or 36324-3) Plasma - Immun oassay Screen with Reflex [...] us e.Test developed and characteristics determined by [facility] ern[facility]. See Compliance Stat ement B: [employer]/CSP erformed by [facility],[address] [facility] [place] [address] rml .[employer] , Arpit Liu MD, Lab. Director [facility] MethodistTotal iron binding dnczuppk9636-89-67 16:06:40 Test Item Value Reference Range Interpretation Comments Iron level (test code = 2498-4) 60 ug/dL 37-145 Iron binding capacity (test code = 321 ug/dL 303-217 2685-7) % Saturation (test code = 2502-3) 18.7 % 15-38 [facility] MethodistPrealbumin txbqg6269-43-77 05:01:13 Test Item Value Reference Range Interpretation Comments Prealbumin (test code = 6793-4) 12 mg/dL 16-32 L Lab Interpretation (test code = Abnormal 87510-3) [facility] MethodistUrinalysis, automated with vccsovtcar9548-15-20 03:51:53 Test Item Value Reference Range Interpretation Comments Color, UA (test code = 5778-6) Yellow Appearance, UA (test code = 5767-9) Hazy Specific gravity, UA (test code = 1.017 1.001-1.035 5811-5) pH, UA (test code = 5803-2) 5.0 5.0-8.5 Protein, UA (test code = 34029-8) Negative Negative Glucose, UA (test code = 10840-9) Negative Negative Ketones, UA (test code = 2514-8) Negative Negative Bilirubin, UA (test code = 5770-3) Negative Negative Blood, UA (test code = 5794-3) Negative Negative Nitrite, UA (test code = 5802-4) Negative Negative Urobilinogen, UA (test code = <2.0 <2.0 38533-0) Leukocyte esterase, UA (test code = Negative Negative 5799-2) Epithelial cells, UA (test code = 11 /HPF 5787-7) WBC, UA (test code = 5821-4) 1 0- 4 /HPF RBC, UA (test code = 63990-2) 1 0- 5 /HPF Bacteria, UA (test code = 17280-0) Few None seen Yeast, UA (test code = 82052-9) None seen Yeast with pseudohyphae, UA (test None seen code = 39211-2) [facility] MethodistXR Foot 3+ Vw Nlnug6093-71-96 21:41:47Hm Interface, Radiology Results Incoming - 01/18/2020 9:44 PM CDTEXAMINATION: XR FOOT [...] spur. 3. No focal soft tissue abnormality. [facility]-RM79JJQXJcwvamt MethodistXR Foot 2 Vw Jqdca6677-50-62 19:24:20Hm Interface, Radiology Results Incoming - 01/10/2020 7:27 PM CDTEXAMINATION: XR FOOT 2 [...] interphalangeal joints of the second through fifth digits.[facility]-[id number] MethodistSodium level, urine, mcsfva5732-16-59 08:20:15 Test Item Value Reference Range Interpretation Comments Sodium, urine, random (test code = 45 mEq/L 33553-7) [facility] MethodistCreatinine level, urine, faewsk4802-00-84 08:19:41 Test Item Value Reference Range Interpretation Comments Creatinine, urine, random (test 182 mg/dL code = 57895-3) [facility] cardiac calcium uqrch9036-74-85 14:07:00Interface, Radiology Results In - 12/28/2019 10:28 AM CDT Nuclear Cardiology and Cardiac CT [address] [place] [address] CT Calcium Scoring ReportPat.Name: SUDARSHAN GREGORY Pat.ID: [id number] .Date: 12/25/2019 Refer.MD: ANGELA ROPER MD Exam Time: 1:10:00 PM Study Type:CT Calcium Scoring Height: 59in Weight: 195lbBSA: 1.83 m2 Age: 11 1960,59Y Sex: FEMALE HR: 152 bpm Nuclear Tech:RT Darrell(Christiana)(CT)Pat. Stat.:Inpatient Nuclear Event ID:[id number] Order ID: [id number] Reason for Study:Liver Transplant CandidateProcedures: CT Flash Mode Race: C -------- SUMMARY: Techniqu e: Sequential 3mm CTcuts were obtained through the chest using [facility] [employer] Magpie CT scanner with ECG gating. Interactive imageviewing [...] Ernesto Renteria MethodistVENIPUNC NEED PHYS SKILL,DX OR AG5480-57-21 14:11:08Samanta Ravi RN 12/24/2019 2:12 PMMidlineDate/Time: 12/24/2019 [...] Catheter Length (cm): 12 Catheter Lot Number: [id number] Catheter Expiration Date: 1Procedure Details: Landmarks identified: [...] of p rocedure: Tolerated well, no immediate complicationsPlainwell MethodistLipid inaiu4324-66-56 18:47:22 Test Item Value Reference Interpretation Comments [...] (mg/dL) interpretation (test < 200 code = 43487-4) Desirable 200-239 Borderline -high >=240 Hi gh [...] in personswith high triglycerides ( >=200 mg/dL) [facility] MandaenLipase akxpy6488-15-89 18:47:09 Test Item Value Reference Range Interpretation Comments Lipase (test code = 3040-3) 80 U/L 13-60 H Lab Interpretation (test code = Abnormal 85538-9) [facility] JayeshistStrep screen apwkvsv1322-01-15 13:22:18 Test Item Value Reference Range Interpretation Comments Strep screen No beta hemolytic Specimen culture Streptococci InformationSpec imen isolate (test isolated Source: Throat Specimen code = 2246) Site: Not other le specified [place] JayeshistMRI Abdomen W Wo [id number] 08:09:17Hm Interface, Radiology Results Incoming 10/15/2019 8:12 [...] without evidence of HCC.Status post TIPS. No ascites.[facility]-[id number] MethodistTransthoracic Echocardiogram Complete, (w Contrast, Strain and 3D if needed)2019-10-14 17:04:00Interface, Radiology Results In 10/14/2019 5:07 PM ANDROID ARCHITECT Echocardiography Report [id number] [address] Pat.Name: SUDARSHAN GREGORY.ID: [id number].Date: 10/14/2019 Refer.MD: HERIBERTO YORK MD Exam Time: 2:46:00 PM Study Type:Routine Echo Height: 59in Weight: 198lb BSA: 1.84 m2 Age: 11 1960,59Y Sex: FEMALE BP: 100/54 HR: 63 bpm Sonogrphr: BIJAN Jorge; Kendrick Cardenas. Stat.:Inpatient Room: [address] Study Status:Final Echo Event ID:[id number] Order ID: [id number] Reason for Study:liver protocol transplant listing statusHistory [...] RAP of 0-5 mmHg.----- MEASUREMENTS: 2DParasternal Long [place] Ao An 1.8 cm LVPWd 0.88 cm [...] LVOT CI 2.3 l/m/m2 Signed 10/14/2019 05:04 PMMohammed Ernesto Cervantes MethodistPotassium [id number] 10:19:16 Test Item Value Reference Range Interpretation Comments Potassium (test code = 2823-3) 4.1 3.5- 5.0 mEq/L [place] MethodistGroup A strep, rapid [id number] 08:37:24 Test Item Value Reference Interpretation Comments Range Group A Negative for Group Specimen strep, rapid A Streptococcus InformationS pecimen antigen antigen. Source: ThroatS pecimen result (test Site: Not other le code = specified 8180329) [place] MethodistXR Knee 1 Or 2 Vw [id number] 23:29:01Hm Interface, Radiology Results - 10/12/2019 11:32 PM CSTExamination: XR KNEE 1 OR 2 VW RIGHTClinical History: Knee pain initial examComparison: None.Findings:2 views of the right knee are obtained. No acute fracture or dislocation is seen. The joint spaces are within normal limits. Soft tissues are unremarkable.No joint effusion is seen.IMPRESSION:1. No acute abnormality identified in theright knee.[facility]-[id number] MethodistXR Foot 3+ Vw [id number] 23:28:37Hm Interface, Radiology Results 10/12/2019 11:31 PM CSTExamination: XR FOOT 3 VW LEFTClinical History: [facility] initial examComparison: None.Findings:3 views of the left foot are obtained. No acute fracture or dislocation is seen. The joint spaces are within normal limits.Soft tissues are unremarkable.IMPRESSION:1. No acute abnormality identified in the left foot.[facility]-[id number] MethodistUS [id number] 18:26:06Hm Interface, Radiology Results 09/02/2019 6:29 PM [...] patentMain portal vein patent with hepatopedal flow. PriorOH[facility]-[id number] MethodistXR Shoulder 2+ Vw [id number] 12:33:38Hm Interface, Radiology Results 09/01/2019 12:36 PM CSTEXAMINATION: XR SHOULDER 2 VW LEFTCLINICAL HISTORY: fall painCOMPARISON: None.IMPRESSION:There is no evidence of acute left shoulder fracture or dislocation. 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-[id number] MethodistCT Cervical Spine Wo Contrast 2019-09-01 12:15:49Hm [...] cervical spine. Multilevel degenerative changes as detailed aboveSHRINERS CHILDREN'S-[id number] Catracho Marquez
--- OUTSIDE RECORDS SUMMARY | 2020-08-26 14:39 | XMS REPORT ---
:1960 Author Organization [facility] Address [address] [place] [address] Care Team Providers Name Role Phone Díaz Unavailable [phone] PROBLEMS Type Condition ICD9-CM [id number] Onset Condition SNOMED Code Notes Code Code Dates Status Problem Irritable bowel K58.9 Active 07442641 syndrome without diarrhea Problem Restless legs G25.81 Active 18384682 syndrome Problem Seasonal and J30.9 Active 07683445 perennial allergic rhinitis Problem Cirrhosis of liver K74.60 Active 56488695 Problem Kidney stone N20.0 Active 27547136 Problem Thrombocytopenia D69.6 Active 822567925 Problem Bipolar disorder F31.9 Active 06407019 Problem Depression F32.9 Active 244535183 Problem Anxiety F41.9 Active 55725673 Problem Inflammatory bowel K52.9 Active 19636201 disease Problem Migraine G43.909 Active 82727539 Problem Fatigue R53.83 Active 62324611 Problem Gout M10.9 Active 58107323 Problem Chronic pain G89.29 Active 53926408 Problem Incontinence of R15.9 Active 86896512 feces, unspecified fecal incontinence type Problem Adult BMI 37.0-37.9 Z68.37 Active 551713091 kg/sq m Problem Insomnia, G47.00 Active 647865163 unspecified type Problem BMI 40.0-44.9, Z68.41 Active 659628151 adult ALLERGIES Allergen (clinical drug Drug/Non Drug Allergy Reaction Allergy Type Onset Date Status ingredient) documented on EMR promethazine Phenergan(NDC Unknown Drug Allergy Active Code:[address]-66) Iodine([facility] Unknown Drug Allergy Active Code:71179-70067) ENCOUNTERS from 1960 to 2020-06-21 Encounter Location Date Provider Diagnosis [facility] Carol Benoit [address], [place] [address] IMMUNIZATIONS Vaccine Route Administration Date Status Ketorolac [...] No information MEDICATIONS Medication SIG (Take, Route, Start Date End Date Status Frequency, Duration) Ultram 50 MG 1 tablet as needed Orally Ac tive every 6 hrs Zofran ODT 4 MG 1 tablet on the tongue and Active allow to dissolve Orally every 8 hrs Allopurinol 100 MG 2 tablets Orally Once a Active day for 90 Zinc Sulfate 220 (50 Zn) TAKE 1 CAPSULE (220 MG Active MG TOTAL) BY MOUTH 2 (TWO) TIMES A DAY. Oral Sodium Bicarbonate 650 MG TAKE 2 TABLETS BY MOUTH Not-Taking TWICE DAILY FOR 14 DAYS Oral for 14 Belsomra 10 MG 1 tablet at bedtime as Act chago needed Orally Once a day for 30 days Albuterol Sulfate HFA 108 2 puffs as needed Aug, Not-Taking (90 Base) MCG/ACT Inhalation every 6 hrs PRN Shortness or breath, cough and wheezing for 30 days Cyanocobalamin 1000 MCG/ML INJECT 1 ML IN MUSLCE ONCE Active A MONTH EVERY 4 WEEKS INJECTION INJECTION 30 DAYS for BD Disp Needle 25G X 1" 1 needle/syring with B12 Jul, Active injection intramuscularly every 2 weeks for 90 days Indomethacin 50 MG TAKE 1 CAPSULE BY MOUTH Active TWICE A DAY WITH FOOD OR MILK for 30 Belsomra 10 MG 1 tablet at bedtime as May, Act chago needed Orally Once a day for 30 days Syringe 2-3 ML 3 ML 1 syringe/needle with B12 Active injection intramuscularly every 2 weeks for 30 days ProAir HFA 108 (90 Base) INHALE 2 PUFFS NEEDED Not-Taking MCG/ACT EVERY 6 HOURS NEEDED FOR SHORTNESS OF BREATH ,COUGH,WHEEZING for 30 Furosemide 40 MG 1 tablet Orally Once a day Active Gabapentin 100 MG 2 cap in AM 3 caps PM A ctive Orally Three times a day Topiramate 50 MG TAKE 1 TABLET BY MOUTH AT Active BEDTIME Oral Xifaxan 550 MG 1 tablet Orally Twice a Ac tive day Spironolactone 25 MG 1 tablet with food Orally Active Once a day Sumatriptan Succinate 100 TAKE AT ONSET OF HEADACHE. Active MG MAY REPEAT IN 2 HOURS IF NO RELIEF. MAXIMUM OF 2 IN 24 HOURS. Oral Rexulti 2 MG TAKE 1 TABLET BY MOUTH Activ e ONCE A DAY Oral Pantoprazole Sodium 40 MG 1 tablet Orally Once a day Active Folic Acid 1 MG 1 tablet Orally Once a day Not-Taking Seroquel 50 MG 1 tablet Orally Once a day Active PROCEDURES No Information RESULTS No Results REASON FOR VISIT Rx Belsomra--> APPT/TV MEDICAL (GENERAL) HISTORY Type Description Date Medical [...] Medication Name Sig Start Date Stop Date Belsomra 10 MG 1 tablet at bedtime as needed May, Orally Once a day for 30 days Pantoprazole Sodium 40 MG 1 tablet Orally Once a day Xifaxan 550 MG 1 tablet Orally Twice a day Indomethacin 50 MG TAKE 1 CAPSULE BY MOUTH TWICE A DAY WITH FOOD OR MILK for 30 Belsomra 10 MG 1 tablet at bedtime as needed Orally Once a day for 30 days Ultram 50 MG 1 tablet as needed Orally every 6 hrs Allopurinol 100 MG 2 tablets Orally Once a day for 90 Spironolactone 25 MG 1 tablet with food Orally Once a day Syringe 2-3 ML 3 ML 1 syringe/needle with B12 injection intramuscularly every 2 weeks for 30 days Zofran ODT 4 MG 1 tablet on the tongue and allow to dissolve Orally every 8 hrs Seroquel 50 MG 1 tablet Orally Once a day Zinc Sulfate 220 (50 Zn) MG TAKE 1 CAPSULE (220 MG TOTAL) BY MOUTH 2 (TWO) TIMES A DAY. Oral Sumatriptan Succinate 100 MG TAKE AT ONSET OF HEADACHE. MAY REPEAT IN 2 HOURS IF NO RELIEF. MAXIMUM OF 2 IN 24 HOURS. Oral Cyanocobalamin 1000 MCG/ML INJECT 1 ML IN MUSLCE ONCE A MONTH EVERY 4 WEEKS INJECTION INJECTION 30 DAYS for 29 Rexulti 2 MG TAKE 1 TABLET BY MOUTH ONCE A DAY Oral Topiramate 50 MG TAKE 1 TABLET BY MOUTH AT BEDTIME Oral Next Appt Details Provider Name:[facility] Arjun, 2020-06-28 1 0:10:00 AM, [address], [place], [address], Insurance Providers Payer Name Payer Address Payer Insured Patient Coverage Cover age Phone Name Relationship to Start Date End Date Insured [facility] [address] [phone] Madhavi Barorn [place] [address] [phone] MEDICARE Attn Part B [id number] Madhavi Barron self 2015 [employer] Claims [phone] [facility] [address]
--- OUTSIDE RECORDS SUMMARY | 2020-08-26 14:39 | XMS REPORT ---
:1960 Author Organization [facility] Address [address] [place] [address] Care Team Providers Name Role Phone Díza Unavailable [phone] PROBLEMS Type Condition ICD9-CM [id number] Onset Condition SNOMED Code Notes Code Code Dates Status Problem Irritable bowel K58.9 Active 53401212 syndrome without diarrhea Problem Restless legs G25.81 Active 93738461 syndrome Problem Seasonal and J30.9 Active 61760773 perennial allergic rhinitis Problem Cirrhosis of liver K74.60 Active 48136650 Problem Kidney stone N20.0 Active 02891202 Problem Thrombocytopenia D69.6 Active 137820222 Problem Bipolar disorder F31.9 Active 56104494 Problem Depression F32.9 Active 242353322 Problem Anxiety F41.9 Active 88637583 Problem Inflammatory bowel K52.9 Active 31597860 disease Problem Migraine G43.909 Active 06854957 Problem Fatigue R53.83 Active 94192266 Problem Gout M10.9 Active 92249034 Problem Chronic pain G89.29 Active 36655475 Problem Incontinence of R15.9 Active 29296586 feces, unspecified fecal incontinence type Problem Adult BMI 37.0-37.9 Z68.37 Active 168850177 kg/sq m Problem Insomnia, G47.00 Active 563477361 unspecified type Problem BMI 40.0-44.9, Z68.41 Active 280858457 adult ALLERGIES Allergen (clinical drug Drug/Non Drug Allergy Reaction Allergy Type Onset Date Status ingredient) documented on EMR promethazine Phenergan(NDC Unknown Drug Allergy Active Code:[address]-67) Iodine([facility] Unknown Drug Allergy Active Code:09651-78376) ENCOUNTERS from 1960 to 2020-06-28 Encounter Location Date Provider Diagnosis Leonor Medina [address], Counts Include [address] [facility] Arjun Inflammat ory bowel [address] [place], disease K5 2.9 ; [place] [address] B12 deficiency E53.8 ; Cirrhosis of li izabel K74.60 ; Depres dayanna F32.9 ; Anxiety F41.9 ; Incontinence of feces, unspecified fec al incontinence ty pe R15.9 ; Bipolar disor jessica F31.9 ; At risk for f alls Z91.81 ; Restle ss legs syndrome G25.81 ; Chronic pain G8 9.29 ; Thrombocytopeni a D69.6 ; Insomnia, unspe cified type G47.00 ; F atigue R53.83 ; Pain i n right foot M79.671 ; BMI 40.0-44.9, adul t Z68.41 ; Gout M10.9 ; Tremor R25.1 and Migra ine G43.909 IMMUNIZATIONS Vaccine Route Administration Date Status Ketorolac [...] REASON FOR REFERRAL No Information VITAL SIGNS Height 59 in Jun, Weight 220 lbs Jun, Temperature 98 degrees Fahrenheit Jun, BMI 44.43 kg/m2 Jun, Blood pressure systolic 135 mm Hg Jun, Blood pressure diastolic 78 mm Hg Jun, MEDICATIONS Medication SIG (Take, Route, Notes Start Date End Date Status Frequency, Duration) Indomethacin 50 MG 1 capsule with food or Active milk Orally Twice a day for 30 day(s) Zinc Sulfate 220 (50 TAKE 1 CAPSULE (220 MG Active Zn) MG TOTAL) BY MOUTH 2 (TWO) TIMES A DAY. Oral Topiramate 50 MG TAKE 1 TABLET BY MOUTH Active AT BEDTIME Oral Albuterol Sulfate HFA 2 puffs as needed Aug, Not-Taking 108 (90 Base) MCG/ACT Inhalation every 6 hrs PRN Shortness or breath, cough and wheezing for 30 days Ultram 50 MG 1 tablet as needed Acti ve Orally every 6 hrs Gabapentin 100 MG 2 cap in AM 3 caps PM Active Orally Three times a day Cyanocobalamin 1000 INJECT 1 [facility] Active MCG/ML ONCE A MONTH EVERY 4 WEEKS INJECTION INJECTION 30 DAYS for Zofran ODT 4 MG 1 tablet on [...] 1 tablet Orally Twice a Active day Indomethacin 50 MG TAKE 1 CAPSULE BY MOUTH Active TWICE A DAY WITH FOOD OR MILK for 30 Folic Acid 1 MG 1 tablet Orally Once a Not-Taking day Allopurinol 100 MG 1 tablet Orally Once a Active day for 30 day(s) Sumatriptan Succinate TAKE AT ONSET OF Active 100 MG HEADACHE. MAY REPEAT IN 2 HOURS IF NO RELIEF. MAXIMUM OF 2 IN 24 HOURS. Oral Rexulti 2 MG TAKE 1 TABLET BY MOUTH Active ONCE A DAY Oral Spironolactone 25 MG 1 tablet with food Active Orally Once a day BD Disp Needle 25G X 1" 1 needle/syring with Jul, Active B12 injection intramuscularly every 2 weeks for 90 days Syringe 2-3 ML 3 ML 1 syringe/needle with Active B12 injection intramuscularly every 2 weeks for 30 days PROCEDURES No Information RESULTS No Results REASON FOR VISIT Medication refill MEDICAL (GENERAL) HISTORY Type Description Date Medical [...] No Information FUNCTIONAL STATUS No Information ASSESSMENTS Encounter Date Diagnosis Assessment Treatment Notes Treatment Notes Clinical Notes Jun, Inflammatory bowel Managed by disease (ICD-10 - in K52.9) Ong. Jun, Vitamin B12 stable on current deficiency (ICD-10 - supplement E53.8) injection. Side effect discussed. Jun, Cirrhosis of liver Managed by Lazarus. (ICD-10 - K74.60) Jun, Depression (ICD-10 - Stable without F32.9) medications denies any si or hi .-- Depression Education: Depression is a brain disease that makes you sad, but it is different than normal sadness. Depressed people feel down most of the time for at least 2 weeks. They also have at least one of these 2 symptoms: 1. They no longer enjoy or care about doing the things they used to like to do. 2. They feel sad, down, hopeless, or cranky most of the day, almost every day. It can also make you: lose or gain weight; sleep too much or too little; fell tired or like you have no energy; feel guilty or like you are worth nothing; forget things or feel confused; and think about or suicide. Medication and/or seeing a counselor (such as a psychiatrist, psychologist, nurse or public health social worker) may be necessary to treat depression. Both treatments take time to work. If you ever feel like you might hurt yourself or some else, then call your doctor or call 911 or go to the ER. Jun, Anxiety (ICD-10 - - will discuss F41.9) psychiatrist at upcoming f/u appointment. Jun, Incontinence of Managed by GI. feces, unspecified fecal incontinence type (ICD-10 - R15.9) Jun, Bipolar disorder stable (ICD-10 - F31.9) Jun, At risk for falls Fall precautions (ICD-10 - Z91.81) given. Order wheelchair during last encounter Jun, Restless legs Stable on Seroqquel. syndrome (ICD-10 - G25.81) Jun, Chronic pain (ICD-10 Managed by PNM. - G89.29) Jun, Thrombocytopenia Stable. (ICD-10 - D69.6) ASymptomatic. Jun, Insomnia, unspecified Will defer to type (ICD-10 - psychiatrist. G47.00) Upcoming appointment. Was on Lunesta. Jun, Fatigue (ICD-10 - R53.83) Jun, Pain in right foot secondary to gout (ICD-10 - M79.671) referral to orthopedics given by ED. f/u recommendations Jun, BMI 40.0-44.9, adult (ICD-10 - Z68.41) Jun, Gout (ICD-10 - M10.9) Toradol 30 mg given in office by MA patient tolerated procedure well will also rx medications for gout. f/u orthopedics f/u in one month Education: recommend low purine diet, avoid/cut down on eating animal product/red meat/seafood. Avoid/ cut down on EtOH intake. Recommend to keep a food diary to find other possible triggers for flare ups. May be caused by excess uric acid production or under excretion of uric acid. Jun, Tremor (ICD-10 - Will need further R25.1) evaluation by neurologist, concern for Parkinson's per Dr. Levy local neurologist. Patient will contact office with specialist name and location. Will refer. Jun, Migraine (ICD-10 - f/u neuro ( G43.909) Mildred) Jun, Other -- Medication reviewed and updated. -- Dietary and Lifestyle modifications addressed regarding diet, exercise and weight managemen t. -- Treatment options, risks and benefits, side effects reviewed in detail. -- Advised on signs/symptoms to monitor and when to call clinic and/or visit the nearest ER. Patient verbalized understanding and agreeable with plan. PLAN OF TREATMENT Medication Medication Name Sig Start Date Stop Date Seroquel 50 MG 1 tablet Orally Once a day Spironolactone 25 MG 1 tablet with food Orally Once a day Pantoprazole Sodium 40 MG 1 tablet Orally Once a day Zofran ODT 4 MG 1 tablet on the tongue and allow to dissolve Orally every 8 hrs Ultram 50 MG 1 tablet as needed Orally every 6 hrs Indomethacin 50 MG 1 capsule with food or milk Orally Twice a day for 30 day(s) Xifaxan 550 MG 1 tablet Orally Twice a day Allopurinol 100 MG 1 tablet Orally Once a day for 30 day(s) Zinc Sulfate 220 (50 Zn) MG TAKE 1 CAPSULE (220 MG TOTAL) BY MOUTH 2 (TWO) TIMES A DAY. Oral Syringe 2-3 ML 3 ML 1 syringe/needle with B12 injection intramuscularly every 2 weeks for 30 days Topiramate 50 MG TAKE 1 TABLET BY MOUTH AT BEDTIME Oral Rexulti 2 MG TAKE 1 TABLET BY MOUTH ONCE A DAY Oral Sumatriptan Succinate 100 MG TAKE AT ONSET OF HEADACHE. MAY REPEAT IN 2 HOURS IF NO RELIEF. MAXIMUM OF 2 IN 24 HOURS. Oral Treatment Notes Assessment Notes Clinical Notes Gout Toradol 30 mg given in office by MApatient ronna edmondson also rx medications for gout.f/u orthopedicsf/u in one monthEducation: recommend low purine diet, avoid/cut down on eating animal product/red meat/seafood. Avoid/ cut down on EtOH intake. Recommend to keep a food diary to find other possible triggers for flare ups. May be caused by excess uric acid production or under excretion of uric acid. Inflammatory bowel disease Managed by in Ong. Pain in right foot secondary to goutreferral to orthopedics given by ED. f/u recommendations Vitamin B12 deficiency stable on current supplement injection. Side effect discussed. Migraine f/u neuro (Dr Levy) Cirrhosis of liver Managed by Lazarus. Tremor Will need further evaluation by neurologist, concern for Parkinson's per Dr. Levy local neurologist. Patient will contact office with specialist name and location. Will refer. Depression Stable without medicationsdenies any si or hi.-- Depression Education: Depression is a brain disease that makes you sad, but it is different than normal sadness. Depressed people feel down most of the time for at least 2 weeks. They also have at least one of these 2 symptoms: 1. They no longer enjoy or care about doing the things they used to like to do. 2. They feel sad, down, hopeless, or cranky most of the day, almost every day. It can also make you: lose or gain weight; sleep too much or too little; fell tired or like you have no energy; feel guilty or like you are worth nothing; forget things or feel confused; and think about or suicide. Medication and/or seeing a counselor (such as a psychiatrist, psychologist, nurse or public health social worker) may be necessary to treat depression. Both treatments take time to work. If you ever feel like you might hurt yourself or some else, then call your doctor or call 911 or go to the ER. Anxiety - will discuss psychiatrist at upcoming f/u appointment. Incontinence of feces, unspecified Managed by GI. fecal incontinence type Bipolar disorder stable Insomnia, unspecified type Will defer to psychiatrist. Upcoming appointment. Was on Lunesta. Thrombocytopenia Stable. ASymptomatic. At risk for falls Fall precautions given. Order wheelchair during last encounter Restless legs syndrome Stable on Seroqquel. Chronic pain Managed by PNM. Next Appt Details 8 Weeks TV Reason: Insurance Providers Payer Name Payer Address Payer Insured Patient Coverage Cover age Phone Name Relationship to Start Date End Date Insured MEDICARE Attn Part B [id number] Madhavi Barron 2015 [employer] Claims [address] [facility] [address] [facility] [address] [phone] Madhavi Barron [facility] [address] [phone]
--- NOTE | 2020-08-26 14:45 | RAD REPORT ---
EXAM DESCRIPTION: CT - CTHCSPWOC - 08/26/2020 2:30 pm CLINICAL HISTORY: Trauma, head and neck injury. PAIN COMPARISON: Thoracic Spine W/o Cont dated 08/26/2020 TECHNIQUE: Axial 5 mm thick images of the head were obtained. Axial 2 mm thick images of the cervical spine were obtained with sagittal and coronal reconstruction images generated and reviewed. All CT scans are performed using dose optimization technique as appropriate and may include automated exposure control or mA/KV adjustment according to patient size. FINDINGS: CT HEAD WITHOUT CONTRAST: No acute hemorrhage, hydrocephalus or extra-axial collection is identified.No areas of brain edema or midline shift. The paranasal sinuses and mastoids are clear.The calvarium is intact. CT CERVICAL SPINE WITHOUT CONTRAST: No fracture or subluxation.Mild midcervical degenerative change.No prevertebral soft tissues swelling is identified. IMPRESSION: No acute intracranial or cervical spine findings.
--- NOTE | 2020-08-26 14:49 | RAD REPORT ---
EXAM DESCRIPTION: CT - Thoracic Spine W/o Cont - 08/26/2020 2:30 pm CLINICAL HISTORY: Radiculopathy. PAIN COMPARISON: Head C Spine Mpr Wo Con dated 09/10/2019; Stone Protocol dated 12/31/2018 TECHNIQUE: Axial CT imaging through the thoracic spine was performed with coronal and sagittal re-fo rmatted images. All CT scans are performed using dose optimization technique as appropriate and may include automated exposure control or mA/KV adjustment according to patient size. FINDINGS: Mild diffuse spondylosis of the upper thoracic levels is seen with diffuse disc thinning. A compression fracture is not present. Thoracic spine alignment is within normal limits. No paraspinal masses or hematoma. Interstitial markings are mildly prominent throughout the lungs. IMPRESSION: No acute thoracic spine abnormality detected.
--- NOTE | 2020-08-26 15:26 | RAD REPORT ---
EXAM DESCRIPTION: RAD - Shoulder Right 2 View - 08/26/2020 3:16 pm CLINICAL HISTORY: PAIN COMPARISON: Thoracic Spine W/o Cont dated 08/26/2020; Head C Spine Mpr Wo Con dated 08/26/2020 FINDINGS: Mild AC joint and glenohumeral joint arthritic changes are present. Along the superior mar gin of scapula is cortical irregularity present. This could represent a fracture. Recommend CT of the right shoulder for further assessment.
--- NOTE | 2020-08-26 15:26 | RAD REPORT ---
EXAM DESCRIPTION: RAD - Knee Right 3 View - 08/26/2020 3:16 pm CLINICAL HISTORY: PAIN COMPARISON: Knee Right 3 View dated 03/07/2018 FINDINGS: Mild medial compartment narrowing. Small suprapatellar joint effusion. No fracture.
--- NOTE | 2020-08-26 16:04 | RAD REPORT ---
EXAM DESCRIPTION: CT - Shoulder Right Wo Cont - 08/26/2020 3:52 pm CLINICAL HISTORY: fall Fall, shoulder pain COMPARISON: No comparisons FINDINGS: Mild AC joint degenerative changes are present. The glenohumeral joint is intact without e vidence dislocation. No acute fracture or dislocation is seen. The scapula is intact. IMPRESSION: No acute injury is identified All CT scans are performed using dose optimization technique as appropriate and may include automated exposure control or mA/KV adjustment according to patient size.
[2020-08-26] MEDS ORDERED: METHYLPREDNISOLONE 125 MG INJ ONE (16:11)
--- NOTE | 2020-08-26 16:20 | RAD REPORT ---
EXAM DESCRIPTION: RAD - Sacrum And Coccyx - 08/26/2020 4:11 pm CLINICAL HISTORY: PAIN Trauma, pain COMPARISON: Lumbar Spine 3 Views dated 11/04/2016 FINDINGS: No fracture or subluxation is seen.
--- NOTE | 2020-08-26 16:29 | ER ---
Nurse's Notes [facility] Name: Bella Barron Age: 60 yrs Sex: Female : 1960 Arrival Date: 08/26/2020 Time: 12:56 Bed 2 Private MD: Diagnosis: Fall on same level from slipping, tripping and stumbling;Cervicalgia;Pain in right knee;Low back pain Presentation: 08/26 13:04 Chief complaint: Patient states: R lower back pain for 2 days. Fell trying to get her ll1 cat last night. No blood thinners, No LOC. Coronavirus screen: Client denies travel out of the [place] in the last 14 days. At this time, the client does not indicate any symptoms associated with coronavirus-19. Ebola Screen: Patient denies travel to an Ebola-affected area in the 21 days before illness onset. Initial Sepsis Screen: Does the patient meet any 2 criteria? No. Patient's initial sepsis screen is negative. Does the patient have a suspected source of infection? Yes: Bone or joint infection. Risk Assessment: Do you want to hurt yourself or someone else? Patient reports no desire to harm self or others. Onset of symptoms was August 25, 2020. 13:04 Method Of Arrival: Wheelchair ll1 13:04 Acuity: OLEG 3 ll1 Triage Assessment: 13:08 General: Appears uncomfortable, Behavior is calm, cooperative, appropriate for age. ll1 Pain: Complains of pain in R lower back Quality of pain is described as aching, throbbing, Aggravated by increased activity. Musculoskeletal: Circulation, motion, and sensation intact. Capillary refill < 3 seconds, Reports pain in R lower back. Injury Description: fall from back pain. Historical: - Allergies: 13:07 Iodine; ll1 13:07 Phenergan; ll1 13:07 Rocephin; ll1 - PMHx: 13:07 Cirrhosis; Crohn's; Depression; Liver disease; ocd; colitis; ll1 13:08 needs kidney and liver transplant; ll1 - PSHx: 13:07 TIPS; ll1 - Immunization history:: Flu vaccine is up to date. - Social history:: Smoking status: Patient/guardian denies using tobacco, the patient reports quitting approximately 3 years ago. Screenin:14 Abuse screen: Denies threats or abuse. Denies injuries from another. Nutritional sv screening: No deficits noted. Tuberculosis screening: No symptoms or risk factors identified. Fall Risk None identified. Assessment: 14:15 General: Appears in no apparent distress. uncomfortable, well developed, Behavior is sv calm, cooperative, appropriate for age. Pain: Complains of pain in back, right knee, and right shoulder Pain currently is 10 out of 10 on a pain scale. Neuro: Level of Consciousness is awake, alert, obeys commands, Oriented to person, place, time, situation, Moves all extremities. Full function. Cardiovascular: Patient's skin is warm and dry. Respiratory: Respiratory effort is even, unlabored, Respiratory pattern is regular, symmetrical. Derm: Skin is intact, Skin is pink, warm \T\ dry. 16:41 Reassessment: Patient appears in no apparent distress at this time. No changes from sv previously documented assessment. Patient and/or family updated on plan of care and expected duration. Pain level reassessed. Patient is alert, oriented x 3, equal unlabored respirations, skin warm/dry/pink. Vital Signs: 13:04 BP 114 / 55; Pulse 62; Resp 17; Temp 97.6; Pulse Ox 99% ; Weight 95.25 kg; Height 4 ft. ll1 11 in. (149.86 cm); Pain 10/10; 16:41 BP 111 / 60; Pulse 64; Resp 16; Pulse Ox 99% ; sv 13:04 Body Mass Index 42.41 (95.25 kg, 149.86 cm) ll1 ED Course: 12:56 Patient arrived in ED. rg4 13:06 Triage completed. ll1 13:07 Arm band placed on. ll1 14:04 Ramandeep Mcdonough FNP-C is [facility]. kb 14:04 Yves French MD is Attending Physician. kb 14:13 Nurse Practitioner and/or Physician Joint Creaser to see patient. sv 14:14 Patient has correct armband on for positive identification. Bed in low position. Call sv light in reach. 14:19 Janina Larson, AMARILIS is Primary Nurse. sv 14:[address] Scan, Awaiting for x-ray. sv 14:31 CT Head C Spine In Process Unspecified. EDMS 14:31 Thoracic Spine WO Cont CT In Process Unspecified. EDMS 15:16 Sacrum And Coccyx XRAY In Process Unspecified. EDMS 15:16 Knee Right 3 View XRAY In Process Unspecified. EDMS 15:16 Shoulder Right 2 View In Process Unspecified. EDMS 15:52 Shoulder Right Wo Cont In Process Unspecified. EDMS 16:09 Pulse ox on. NIBP on. mh5 16:13 Patient moved back from CT. sv 16:14 Awaiting radiology results. sv 16:41 No provider procedures requiring assistance completed. Patient did not have IV access sv during this emergency room visit. Administered Medications: 14:19 Drug: [place] 5 mg-325 mg 1 tabs {Note: rass1.} Route: PO; sv 15:00 Follow up: Response: No adverse reaction; RASS: Alert and Calm (0) sv Outcome: 16:28 Discharge ordered by . kb 16:41 Discharged to home ambulatory. sv 16:41 Condition: stable 16:41 Discharge instructions given to patient, Instructed on discharge instructions, follow up and referral plans. Demonstrated understanding of instructions, follow-up care. 16:41 Patient left the ED. sv Signatures: Dispatcher [employer] EDRamandeep Valenzuela, DISTANCE LEARNING TECHNICIAN-C DISTANCE LEARNING TECHNICIAN-CkJanina Schreiber RN RN Tianna Rodrigues, RN RN irving5 [facility] Maria 5 Makenna Burgos, RN RN ll1 Corrections: (The following items were deleted from the chart) 14:29 14:05 Tianna Rodrigues, RN is Primary Nurse. aa5 aa5 14:29 14:19 Primary Nurse role handed off by Tianna Rodrigues RN aa5
--- NOTE | 2020-08-26 16:29 | EDPHYS ---
Physician Documentation [facility] Name: Bella Barron Age: 60 yrs Sex: Female : 1960 Arrival Date: 08/26/2020 Time: 12:56 Bed 2 Private MD: ED Physician Yves French HPI: 08/26 14:51 This 60 yrs old Female presents to ER via Wheelchair with complaints of Fall kb Injury. 14:51 Details of fall: The patient fell from an upright position, bending over. Onset: The kb symptoms/episode began/occurred yesterday. Associated injuries: The patient sustained injury to the head, pain, neck injury, pain, pain with movement, tenderness, upper back injury, pain, pain with movement, tenderness, injury to the low back, pain, pain with movement, tenderness, right knee, painful injury, Severity of symptoms: At their worst the symptoms were moderate, in the emergency department the symptoms are unchanged. The patient has not experienced similar symptoms in the past. The patient has not recently seen a physician. Pt reports she was trying to catch a kitten last night and missed causing her to fall over onto the ground. c/o headache, neck pain, upper back pain, pain to tailbone, and right knee pain. Denies LOC. . Historical: - Allergies: 13:07 Iodine; ll1 13:07 Phenergan; ll1 13:07 Rocephin; ll1 - PMHx: 13:07 Cirrhosis; Crohn's; Depression; Liver disease; ocd; colitis; ll1 13:08 needs kidney and liver transplant; ll1 - PSHx: 13:07 TIPS; ll1 - Immunization history:: Flu vaccine is up to date. - Social history:: Smoking status: Patient/guardian denies using tobacco, the patient reports quitting approximately 3 years ago. ROS: 15:00 Constitutional: Negative for fever, chills, and weight loss, Cardiovascular: Negative kb for chest pain, palpitations, and edema, Respiratory: Negative for shortness of breath, cough, wheezing, and pleuritic chest pain, Abdomen/GI: Negative for abdominal pain, nausea, vomiting, diarrhea, and constipation, Skin: Negative for injury, rash, and discoloration. 15:00 Neck: Positive for pain with movement, pain at rest. 15:00 Back: Positive for pain at rest, pain with movement, of the thoracic area and sacrum. 15:00 Neuro: Positive for headache. 15:02 MS/extremity: Positive for pain, of the right knee. kb Exam: 14:53 Constitutional: This is a well developed, well nourished patient who is awake, alert, kb and in no acute distress. Head/Face: Normocephalic, atraumatic. Chest/axilla: Normal chest wall appearance and motion. Nontender with no deformity. No lesions are appreciated. Cardiovascular: Regular rate and rhythm with a normal S1 and S2. No gallops, murmurs, or rubs. Normal PMI, no JVD. No pulse deficits. Respiratory: Lungs have equal breath sounds bilaterally, clear to auscultation and percussion. No rales, rhonchi or wheezes noted. No increased work of breathing, no retractions or nasal flaring. Abdomen/GI: Soft, non-tender, with normal bowel sounds. No distension or tympany. No guarding or rebound. No evidence of tenderness throughout. Skin: Warm, dry with normal turgor. Normal color with no rashes, no lesions, and no evidence of cellulitis. MS/ Extremity: Pulses equal, no cyanosis. Neurovascular intact. Full, normal range of motion. Neuro: Awake and alert, GCS 15, oriented to person, place, time, and situation. Cranial nerves II-XII grossly intact. Motor strength 5/5 in all extremities. Sensory grossly intact. Cerebellar exam normal. Normal gait. 14:53 Neck: C-spine: vertebral tenderness, that is moderate, diffusely. 14:53 Back: pain, that is moderate, of the lumbar area. Vital Signs: 13:04 BP 114 / 55; Pulse 62; Resp 17; Temp 97.6; Pulse Ox 99% ; Weight 95.25 kg; Height 4 ft. ll1 11 in. (149.86 cm); Pain 10/10; 16:41 BP 111 / 60; Pulse 64; Resp 16; Pulse Ox 99% ; sv 13:04 Body Mass Index 42.41 (95.25 kg, 149.86 cm) ll1 MDM: 14:05 Patient medically screened. kb 14:51 Data reviewed: vital signs, nurses notes. Data interpreted: Pulse oximetry: on room air kb is 99 %. Interpretation: normal. 16:12 Counseling: I had a detailed discussion with the patient and/or guardian regarding: the kb historical points, exam findings, and any diagnostic results supporting the discharge/admit diagnosis, radiology results, the need for outpatient follow up, a family practitioner, to return to the emergency department if symptoms worsen or persist or if there are any questions or concerns that arise at home. 08/26 14:15 Order name: CT Head C Spine; Complete Time: 14:50 kb 08/26 14:15 Order name: Sacrum And Coccyx XRAY; Complete Time: 16:27 kb 08/26 14:15 Order name: Thoracic Spine WO Cont CT; Complete Time: 15:04 kb 08/26 14:15 Order name: Knee Right 3 View XRAY; Complete Time: 15:28 kb 08/26 14:49 Order name: Shoulder Right 2 View; Complete Time: 15:28 EDMS 08/26 15:32 Order name: Shoulder Right Wo Cont; Complete Time: 16:07 EDMS Administered Medications: 14:19 Drug: [place] 5 mg-325 mg 1 tabs {Note: rass1.} Route: PO; sv 15:00 Follow up: Response: No adverse reaction; RASS: Alert and Calm (0) sv Disposition: 08/27 14:23 Co-signature as Attending Physician, Yves French MD I agree with the assessment and kdr plan of care. Disposition: 08/26/20 16:28 Discharged to Home. Impression: Fall on same level from slipping, tripping and stumbling, Cervicalgia, Pain in right knee, Low back pain. - Condition is Stable. - Discharge Instructions: Musculoskeletal Pain, Fall Prevention in the Home, [id number]. - Medication Reconciliation Form, Thank You Letter, Antibiotic Education, Prescription Opioid Use form. - Follow up: Emergency Department; When: As needed; Reason: Worsening of condition. Follow up: Private Physician; When: 2 - 3 days; Reason: Recheck today's complaints, Continuance of care, Re-evaluation by your physician. Signatures: Dispatcher [employer] EDMS Ramandeep Mcdonough FNP-C FNP-Ckb Verde, Stephanie, RN RN Yves Millan MD MD kdr Lewis, Lynsay RN RN ll1 Corrections: (The following items were deleted from the chart) 08/26 16:41 16:28 08/26/2020 16:28 Discharged to Home. Impression: Fall on same level from sv slipping, tripping and stumbling; Cervicalgia; Pain in right knee; Low back pain. Condition is Stable. Discharge Instructions: Musculoskeletal Pain, Fall Prevention in the Home, [id number]. Forms are Medication Reconciliation Form, Thank You Letter, Antibiotic Education, Prescription Opioid Use. Follow up: Emergency Department; When: As needed; Reason: Worsening of condition. Follow up: Private Physician; When: 2 - 3 days; Reason: Recheck today's complaints, Continuance of care, Re-evaluation by your physician. kb
[2020-08-26 16:46] VITALS: TEMP 97.6; O2SAT 99
[2020-08-26 16:47] VITALS: BP 111/60
== END 2020-08-26 16:41 | disposition home or self-care (01) ==
LOC: ER 12:54
DX: M54.2 Cervicalgia (principal); M25.561 Pain in right knee; W01.0XXA Fall on same level from slipping, tripping and stumbling without subsequent striking against object, initial encounter; Y93.9 Activity, unspecified; Y92.9 Unspecified place or not applicable; Z88.1 Allergy status to other antibiotic agents; Z88.8 Allergy status to other drugs, medicaments and biological substances; Z91.048 Other nonmedicinal substance allergy status; K74.60 Unspecified cirrhosis of liver
CPT/HCPCS: 70450; 72125; 72128; 73200; 72220; 73030; 73562; 99284; J2930

== ENCOUNTER 2020-10-10 16:18 | Observation (INO) | payer OTHER ==
--- OUTSIDE RECORDS SUMMARY | 2020-10-10 16:23 | XMS REPORT | Continuity of Care Document ---
:1960 Author Organization [facility] t Address [address] [place] [address] Care Team Providers Name Role Phone AICHA Attending Clinician Unavailable ROM Attending Clinician Unavailable ROLANDO Attending Clinician Unavailable CHELA Attending Clinician Unavailable YING Attending Clinician Unavailable ELLE Attending Clinician Unavailable PLACIDO Attending Clinician Unavailable MARYBETH Attending Clinician Unavailable YOJANA Attending Clinician Unavailable TING BARCENAS Attending Clinician Unavailable JACQUELIN Attending Clinician Unavailable MEAGAN Attending Clinician Unavailable Faustino Fuchs Attending Clinician DARCY Attending Clinician Unavailable JERRY Attending Clinician Unavailable CHELA Admitting Clinician Unavailable MAGDA Admitting Clinician Unavailable JAYCEE Admitting Clinician Unavailable MARYBETH Admitting Clinician Unavailable TING BARCENAS Admitting Clinician Unavailable ROLANDO Admitting Clinician Unavailable DARCY Admitting Clinician Unavailable Problems This patient has no known problems. Allergies, Adverse Reactions, Alerts Allergy Allergy Status Severity Reaction(s) Onset Inactive Treating Comm ents Source Name Type Date Date Clinician Phenerga Adverse Active Info Not [facility] Iodine Adverse Active Info Not [facility] Reaction Available [facility] Medications Ordered Filled Start Stop Current Ordering Indication Dosage Frequency Signature Comments Components Source Medication Medication Date Date Medication? Clinician (SIG) Name Name Allopurinol Allopurinol Yes Fernando [address] Clinics Procedures This patient has no known procedures. Encounters Start End Encounter Admission Attending Care Care Encounter Source Date/Time Date/Time Type Type Clinicians Facility Department ID 2020-10-09 2020-10-09 Emergency AICHA, [facility] [id number] [place] 00:00:00 00:00:[address] ATIF [address] 2020-10-03 2020-10-03 Outpatient [facility] [id number] [facility] 2020-09-19 2020-09-21 Inpatient DESTINI CUETO [facility] [id number] [place] 00:00:00 00:00:[address] 2020-09-14 2020-09-14 [facility] [id number] [facility] 2020-08-31 2020-09-02 Inpatient ROLANDO, [facility] [id number] [place] 00:00:00 00:00:00 CUAUHTEMOC [address] 2020-08-10 2020-08-13 Inpatient YORK, [facility] [id number] [place] 00:00:00 00:00:00 ANDRES [address] 2020-08-09 2020-08-09 Emergency NUSZEN, [facility] [id number] [place] 00:00:00 00:00:00 KAYCEE [address] 2020-08-08 2020-08-08 Emergency WEIBEL, [facility] [id number] [place] 00:00:00 00:00:00 NOBLE [address] 2020-07-27 2020-07-27 [facility] [id number] [facility] 2020-07-18 2020-07-18 Outpatient [facility] [id number] [place] 00:00:00 00:00:[address] 2020-07-04 2020-07-07 Inpatient DESTINI CUETO [facility] [id number] [place] 00:00:00 00:00:[address] 2020-06-28 2020-06-28 Outpatient [facility] [id number] [facility] 2020-06-20 2020-06-20 Outpatient [facility] [id number] [facility] 2020-05-30 2020-06-03 Inpatient DESTINI CUETO [facility] [id number] [place] 00:00:00 00:00:[address] 2020-05-27 2020-05-27 Outpatient YALAMANCHIL [facility] [id number] [place] 00:00:00 00:00:00 YIFAN Torres [address] 2020-05-20 2020-05-20 Outpatient [facility] [id number] [facility] 2020-05-13 2020-05-17 Inpatient MCCARTAN, [facility] [id number] [place] 00:00:00 00:00:00 MERCY Dr[facility] 2020-04-13 2020-04-21 Inpatient YOJANA, [facility] [id number] [place] 00:00:00 00:00:00 JUNO [address] 2020-04-13 2020-04-13 [facility] [id number] [address] 16:02:00 16:02:00 t [employer] s - Drive [facility] l Medicine Outpati ent Clinics 2020-04-13 2020-04-13 [facility] [id number] 09:33:00 09:33:00 [place] OX MEDIAke s - Drive [facility] Medicine l Medicine Outpati ent Clinics 2020-04-05 2020-04-05 [facility] [id number] 09:10:00 09:10:00 [place] [employer] s - Drive [facility] Medicine l Medicine Outpati ent Clinics 2020-04-04 2020-04-04 [facility] [id number] 10:58:00 10:58:00 t [employer] s - Drive [facility] Medicine l Medicine Outpati ent Clinics 2020-04-04 2020-04-04 [facility] [id number] 10:00:00 10:00:00 [place] [employer] Geliyoo [facility] Medicine Outpati ent Clinics 2020-03-17 2020-03-19 Inpatient TING [facility] [id number] [place] 00:00:00 00:00:00 Ben BARCENAS [facility] [address] [facility] 2020-03-16 2020-03-16 [facility] [id number] 11:12:00 11:12:00 t [employer] Geli[facility]oo [facility] Medicine Outpati ent Clinics 2020-03-14 2020-03-14 Outpatient JACQUELIN, [facility] [id number] [place] 00:00:00 00:00:00 AHMED [address] [facility] 2020-03-10 2020-03-10 [facility] [id number] 13:18:00 13:18:00 t [employer] Geliyoo [facility] Medicine Outpati ent Clinics 2020-03-07 2020-03-07 [facility] [id number] 16:07:00 16:07:00 t [employer] Geliyoo [facility] Medicine Outpati ent Clinics 2020-03-04 2020-03-04 [facility] [id number] 11:00:00 11:00:00 t [employer] - [place] [facility] Medicine Outpati ent Clinics 2020-03-04 2020-03-04 [facility] [id number] 11:00:00 11:00:00 t [employer] Geliyoo [facility] Medicine Outpati ent Clinics 2020-03-04 2020-03-04 Outpatient MEAGAN, [facility] [id number] [place] 00:00:00 00:00:00 JAYASIMHA [address] 2020-02-18 2020-02-21 Inpatient YORK, [facility] [id number] [place] 00:00:00 00:00:00 ANDRES [address] 2020-01-18 2020-01-20 Inpatient DINAKAR, [facility] [id number] [place] 00:00:00 00:00:00 CUAUHTEMOC [address] 2020-01-07 2020-01-11 Inpatient YORK, [facility] [id number] [place] 00:00:00 00:00:00 ANDRES [address] 2019-12-29 2019-12-29 [facility] [id number] 07:03:00 07:03:00 [place] [employer] s - Drive [facility] l Medicine Outpati ent Clinics 2019-12-23 2019-12-25 Inpatient TING [facility] [id number] [place] 00:00:00 00:00:00 BARCENAS, [address] BAYLEE 2019-12-23 2019-12-23 Outpatient JACQUELIN, [facility] [id number] [place] 00:00:00 00:00:00 AHMED 960 [facility] 2019-12-22 2019-12-22 Office Daija WVKATHERINE [id number] 14:08:03 14:56:41 [place] [id number] Surgical [id number] Special [id number] [address] [place] 2019-10-12 2019-10-15 Inpatient CHELA, [facility] [id number] [place] 00:00:00 00:00:00 ANDRES 906 [facility] 2019-09-01 2019-09-03 Inpatient CHELA [facility] [id number] [place] 00:00:00 00:00:00 ANDRES [address] 2019-07-20 2019-07-20 [facility] [id number] 14:02:00 14:02:00 [place] [employer] - [facility] Medicine Outpati ent Clinics 2019-07-16 2019-07-16 [facility] [id number] 13:15:00 13:15:[address] [employer] s - Drive [facility] Medicine l Medicine Outpati ent Clinics 2019-06-16 2019-06-18 Inpatient CHELA [facility] [id number] [place] 00:00:00 00:00:00 ANDRES [address] 2019-05-07 2019-05-08 Outpatient DARCY, UMAR [facility] [id number] [place] 00:00:00 00:00:[address] 2019-04-23 2019-04-23 Outpatient GALATI, [facility] [id number] [place] 00:00:00 00:00:00 BRAD [address] [facility] 2019-04-23 2019-04-23 Outpatient JACQUELIN, [facility] [id number] [place] 00:00:00 00:00:00 EBONY [address] 2019-04-15 2019-04-15 [facility] [id number] 14:19:00 14:19:00 [place] [employer] - [place] [facility] Medicine Outpati ent Clinics 2019-04-09 2019-04-09 [facility] [id number] 14:00:00 14:00:00 [place] [employer] - [place] [facility] Medicine Outpati ent Clinics 2018-09-09 2018-09-09 [facility] [id number] 14:45:00 14:45:00 [place] [employer] - [place] [facility] Medicine Outpati ent Clinics 2018-04-15 2018-04-15 [facility] [id number] 12:02:00 12:02:00 [place] [employer] - [place] [facility] Medicine Outpati ent Clinics 2018-02-19 2018-02-19 [facility] [id number] 15:08:00 15:08:00 [place] [employer] - [place] [facility] Medicine Outpati ent Clinics 2018-01-24 2018-01-24 [facility] [id number] 11:15:00 11:15:00 [place] [employer] - [place] [facility] Medicine Outpati ent Clinics Results This patient has no known results.
[2020-10-10 17:22] LABS: Absolute Lymphocytes (CBC) 1.3 K/uL (0.7-4.9); Basophils % 0.4 % (0-1.3); Hematocrit 32.7 % (36.0-45.0); Lymphocytes % 8.4 % (15.3-44.8); MPV 8.9 fL (7.6-11.3); RBC Red Blood Cell Count 3.73 M/uL (3.86-4.86)
--- NOTE | 2020-10-10 17:40 | RAD REPORT ---
EXAM DESCRIPTION: CT - Head Brain Wo Cont - 10/10/2020 5:26 pm CLINICAL HISTORY: CONFUSED Headache, drowsiness COMPARISON: Head Brain Wo Cont dated 05/04/2018; Head Brain Wo Cont dated 03/17/2018; Stone Protocol da barron 12/31/2018 TECHNIQUE: All CT scans are performed using dose optimization technique as appropriate and may inclu de automated exposure control or mA/KV adjustment according to patient size. FINDINGS: No intracranial hemorrhage, hydrocephalus or extra-axial fluid collection.No areas of brai n edema or evidence of midline shift. 16 mm mucous retention cyst or polyp in the right maxillary antrum. The paranasal sinuses and mastoid s are otherwise clear. The calvarium is intact. IMPRESSION: No acute intracranial abnormality.
[2020-10-10 17:42] LABS: Albumin 3.5 g/dL (3.4-5.0); Bilirubin Direct 0.3 mg/dL (0-0.2); Bilirubin Total 0.7 mg/dL (0.2-1.0); Potassium 3.6 mmol/L (3.5-5.1); Protein, Total 7.4 g/dL (6.4-8.2)
--- NOTE | 2020-10-10 17:43 | RAD REPORT ---
EXAM DESCRIPTION: CT - Abdomen Pelvis Wo Contrast - 10/10/2020 5:27 pm CLINICAL HISTORY: Abdominal pain. diarrhea COMPARISON: Stone Protocol dated 12/31/2018 TECHNIQUE: CT imaging of the abdomen and pelvis was performed without contrast. Solid organ, bowel a nd vascular assessment is limited due to lack of IV and oral contrast. All CT scans are performed using dose optimization technique as appropriate and may include automated exposure control or mA/KV adjustment according to patient size. FINDINGS: The lower lung lopez are clear. The TIPS shunt is present within the liver. Cholecystectomy clips are seen. The spleen is mildly enla rged in size.The pancreas, adrenal glands are normal. Punctate stone is present in the right kidney w ithout hydronephrosis. There is a prominent cyst involving the cortex of left kidney measuring 4.7 cm . No bowel obstruction, free air, free fluid or abscess. The colon is largely fluid-filled. The appendi x appears surgically absent. Evidence of prior ventral hernia repair noted. The osseous structures are within normal limits. IMPRESSION: No acute intra-abdominal or pelvic findings. A limited non-contrast examination was performed as detailed.
[2020-10-10 18:11] LABS: Urine Bacteria 20-50 /HPF (<20); Urine RBC <5 /HPF (NONE SEEN)
[2020-10-10 18:12] LABS: Urine Mucus 1+ /HPF (NONE SEEN)
[2020-10-10 18:12] LABS: Urine Blood TRACE (NEG); Urine Glucose NEGATIVE (NEG); Urine Protein NEGATIVE (NEG); Urine pH 5.5 (5.0-7.0)
--- NOTE | 2020-10-10 18:14 | EDPHYS ---
Physician Documentation [facility] Name: Bella Barron Age: 60 yrs Sex: Female : 1960 Arrival Date: 10/10/2020 Time: 16:19 Bed 7 Private MD: ED Physician Beau Encarnacion HPI: 10/10 17:14 This 60 yrs old Female presents to ER via EMS with complaints of Altered rn Mental Status. 17:14 The patient presents with confusion. Onset: The symptoms/episode began/occurred at an rn unknown time. Possible causes: unknown. 17:15 Current symptoms: In the emergency department the patient's symptoms are unchanged from rn the initial presentation. The patient has experienced similar episodes in the past. Reports a few days of hallucinations, seeing people and things that aren't there, no head injury, + hx of cirrhosis but feels more confused than she has been in past. Reports seen at [facility] yesterday to check her ammonia, not told results, sent home, told to take her lactulose. Reports diarrhea. No fever. . Historical: - Allergies: 16:31 Iodine; jl7 16:31 Phenergan; jl7 16:31 Rocephin; jl7 - PMHx: 16:31 Cirrhosis; Colitis; Crohn's; Depression; Liver disease; needs kidney and liver jl7 transplant; ocd; - PSHx: 16:31 TIPS; jl7 - Immunization history:: Adult Immunizations unknown. - Social history:: Smoking status: Patient denies any tobacco usage or history of. - Family history:: not pertinent. - Hospitalizations: : No recent hospitalization is reported. ROS: 17:15 Constitutional: Negative for fever, chills, and weight loss, Eyes: Negative for injury, rn pain, redness, and discharge, Neck: Negative for injury, pain, and swelling, Cardiovascular: Negative for chest pain, palpitations, and edema, Respiratory: Negative for shortness of breath, cough, wheezing, and pleuritic chest pain, Abdomen/GI: Negative for abdominal pain, nausea, vomiting,and constipation, Back: Negative for injury and pain, : Negative for injury, bleeding, discharge, and swelling, MS/Extremity: Negative for injury and deformity, Skin: Negative for injury, rash, and discoloration, Neuro: Negative for headache, weakness, numbness, tingling, and seizure. Exam: 17:15 Constitutional: Overweight female, no acute distress, smiling. Head/Face: rn Normocephalic, atraumatic. ENT: dry MM Cardiovascular: Regular rate and rhythm. No pulse deficits. Respiratory: No increased work of breathing, no retractions or nasal flaring. Abdomen/GI: Soft, non-tender Skin: Warm, dry MS/ Extremity: Pulses equal, no cyanosis. Neurovascular intact. Full, normal range of motion. Equal circumference. Neuro: Awake and alert, GCS 15, oriented to person, place, time, and situation. Cranial nerves II-XII grossly intact. Motor strength 4/5 in all extremities. Sensory grossly intact. Vital Signs: 16:27 BP 154 / 85; Pulse 85; Resp 19; Temp 98.5; Pulse Ox 100% ; Weight 96.62 kg; Height 4 jl7 ft. 11 in. (149.86 cm); 18:00 Pulse 87; Resp 26; Pulse Ox 100% ; bp 19:55 BP 145 / 69; Pulse 80; Resp 20; Temp 98.2; Pulse Ox 100% on R/A; ea 16:27 Body Mass Index 43.02 (96.62 kg, 149.86 cm) jl7 MDM: 16:22 Patient medically screened. rn 18:07 Differential Diagnosis: CVA, hypoglycemia, TIA, UTI, volume depletion, hepatic rn encephalopathy, dehydration. Data reviewed: vital signs, nurses notes, lab test result(s), radiologic studies. 18:09 Counseling: I had a detailed discussion with the patient and/or guardian regarding: the rn historical points, exam findings, and any diagnostic results supporting the discharge/admit diagnosis, lab results, radiology results, the need for further work-up and treatment in the hospital. Admission orders: after a detailed discussion of the patient's condition and case, the admit orders are written by me. ED course: Spoke with , reports seems confused, states has always been ammonia levels when this has happened before. NO head injury. Seen yesterday and told ammonia in 60s, given lactulose last night with some improvement, but not back to baseline. Patient reports only her "liver pain", no new pain, and mild diarrhea. + decreased PO intake and dry MM, will hydrate and admit to hospitalist service for further care. . 10/10 16:27 Order name: Basic Metabolic Panel rn 10/10 16:27 Order name: CBC with Diff rn 10/10 16:27 Order name: Hepatic Function rn 10/10 16:27 Order name: Lipase rn 10/10 16:27 Order name: AMMONIA rn 10/10 16:27 Order name: Procalcitonin; Complete Time: 18:02 rn 10/10 16:28 Order name: Urine Culture rn 10/10 16:28 Order name: Urine Microscopic Only; Complete Time: 18:20 rn 10/10 16:28 Order name: Basic Metabolic Panel; Complete Time: 17:45 EDMS 10/10 16:28 Order name: CBC with Automated Diff; Complete Time: 17:45 EDMS 10/10 16:28 Order name: Liver (Hepatic) Function; Complete Time: 17:45 EDMS 10/10 16:28 Order name: Lipase; Complete Time: 17:45 EDMS 10/10 16:28 Order name: Ammonia; Complete Time: 17:45 EDMS 10/10 17:57 Order name: Urine Dipstick--Ancillary (enter results); Complete Time: 18:20 em1 10/10 16:27 Order name: IV Saline Lock; Complete Time: 18:46 rn 10/10 16:27 Order name: Labs collected and sent; Complete Time: 18:46 rn 10/10 16:27 Order name: CT Head Brain wo Cont; Complete Time: 17:45 rn 10/10 16:28 Order name: Urine Dipstick-Ancillary (obtain specimen); Complete Time: 17:54 rn 10/10 16:33 Order name: Abdomen ; Complete Time: 17:45 EDMS 10/10 18:08 Order name: EKG - Nurse/Tech; Complete Time: 19:49 rn 10/10 19:00 Order name: EKG; Complete Time: 19:00 jl7 10/10 19:12 Order name: SARS-COV-2 RT PCR EDMS Administered Medications: 17:45 Drug: NS 0.9% 500 ml Route: IV; Rate: bolus; Site: left antecubital; jl7 18:30 Follow up: Response: No adverse reaction; IV Status: Completed infusion; IV Intake: jl7 500ml 18:30 Drug: NS 0.9% 500 ml Route: IV; Rate: bolus; Site: left antecubital; bw 19:48 Follow up: Response: No adverse reaction; IV Status: Completed infusion; IV Intake: ea 500ml 19:01 Drug: Cipro 400 mg Volume: 200 ml; Route: IVPB; Infused Over: 60 mins; Site: left jl7 antecubital; 19:49 Follow up: Response: No adverse reaction; IV Status: Completed infusion ea Disposition: 10/10/20 18:13 Hospitalization ordered by Chester Rivers for Observation. Preliminary diagnosis are Altered mental status, unspecified, Hallucinations, unspecified, Dehydration. - Bed requested for Telemetry/MedSurg (observation). - Status is Observation. ea - Condition is Stable. - Problem is new. - Symptoms have improved. Signatures: Dispatcher [employer] EDVT Estella Marie RN Albania Small RN RN iw Nieto, Roman, MD MD rn Attema, Anthony, APPARATUS ENGINEERING TECHNOLOGIST-C APPARATUS ENGINEERING TECHNOLOGIST-Cla1 Nupur Brady RN RN jl7 Natalia Greco RN Sweta Villalobos ea RN AMARILIS Corrections: (The following items were deleted from the chart) 16:33 16:28 Abdomen Pelvis W Con+CT.RAD.BRZ ordered. EDVT EDMS 17:19 17:15 Constitutional: Overweight female, no acute distress, smiling. Head/Face: rn Normocephalic, atraumatic. ENT: dry MM rn 18:19 18:13 Hospitalization Ordered by Chester Rivers DO for Observation. Preliminary la1 diagnosis is Altered mental status, unspecified; Hallucinations, unspecified; Dehydration. Bed requested for Telemetry/MedSurg (observation). Status is Observation. Condition is Stable. Problem is new. Symptoms have improved. rn 18:28 18:04 CORONAVIRUS+MR.LAB.BRZ ordered. EDVT EDMS 18:33 18:19 10/10/2020 18:13 Hospitalization Ordered by Miguel Encarnacion MD for Observation. iw Preliminary diagnosis is Altered mental status, unspecified; Hallucinations, unspecified; Dehydration. Bed requested for Telemetry/MedSurg (observation). Status is Observation. Condition is Stable. Problem is new. Symptoms have improved. la1 19:29 18:33 10/10/2020 18:13 Hospitalization Ordered by Chester Rivers DO for Observation. dw Preliminary diagnosis is Altered mental status, unspecified; Hallucinations, unspecified; Dehydration. Bed requested for Telemetry/MedSurg (observation). Status is Observation. Condition is Stable. Problem is new. Symptoms have improved. iw 20:01 19:29 10/10/2020 18:13 Hospitalization Ordered by Chester Rivers DO for Observation. ea Preliminary diagnosis is Altered mental status, unspecified; Hallucinations, unspecified; Dehydration. Bed requested for Telemetry/MedSurg (observation). Status is Observation. Condition is Stable. Problem is new. Symptoms have improved. dw
--- NOTE | 2020-10-10 18:14 | ER ---
Nurse's Notes [facility] Name: Bella Barron Age: 60 yrs Sex: Female : 1960 Arrival Date: 10/10/2020 Time: 16:19 Bed 7 Private MD: Diagnosis: Altered mental status, unspecified;Hallucinations, unspecified;Dehydration Presentation: 10/10 16:27 Chief complaint: EMS states: Seen at [facility] yesterday and had ammonia jl7 checked, no results but discharged with Kristalose, pt reports AMS, seeing people and crying, reports RUQ abdominal pain, tender on palpation. Coronavirus screen: Client denies travel out of the [place] in the last 14 days. At this time, the client does not indicate any symptoms associated with coronavirus-19. Ebola Screen: No symptoms or risks identified at this time. Initial Sepsis Screen: Does the patient meet any 2 criteria? No. Patient's initial sepsis screen is negative. Does the patient have a suspected source of infection? No. Patient's initial sepsis screen is negative. Risk Assessment: Do you want to hurt yourself or someone else? Patient reports no desire to harm self or others. Onset of symptoms was October 07, 2020. Care prior to arrival: None. 16:27 Method Of Arrival: EMS: [facility] jl7 16:27 Acuity: OLEG 3 jl7 Triage Assessment: 16:32 General: Appears in no apparent distress. uncomfortable, Behavior is calm, cooperative. jl7 Pain: Complains of pain in right upper quadrant Quality of pain is described as. EENT: Oral mucosa is dry. Neuro: Level of Consciousness is awake, alert, obeys commands, Oriented to person, place, time, situation, Speech is slurred. Cardiovascular: Patient's skin is warm and dry. Respiratory: Airway is patent Respiratory effort is even, unlabored, Respiratory pattern is regular, symmetrical. GI: Abdomen is round non-distended, Abd is soft X 4 quads Abdomen is tender to palpation in right upper quadrant. Derm: Skin is pink, warm \T\ dry. Historical: - Allergies: 16:31 Iodine; jl7 16:31 Phenergan; jl7 16:31 Rocephin; jl7 - PMHx: 16:31 Cirrhosis; Colitis; Crohn's; Depression; Liver disease; needs kidney and liver jl7 transplant; ocd; - PSHx: 16:31 TIPS; jl7 - Immunization history:: Adult Immunizations unknown. - Social history:: Smoking status: Patient denies any tobacco usage or history of. - Family history:: not pertinent. - Hospitalizations: : No recent hospitalization is reported. Screenin:29 Abuse screen: Denies threats or abuse. Denies injuries from another. Nutritional rr5 screening: No deficits noted. Tuberculosis screening: No symptoms or risk factors identified. Fall Risk IV access (20 points). Mental Status- Overestimates/Forgets Limitations (15 pts.). Total Schaefer Fall Scale indicates Low Risk Score (25-44 pts). Fall prevention measures have been instituted. Side Rails Up X 2 Placed close to Nursing Station Frequent Obs/Assesments occuring As available Patient and Family Educated on Fall Prevention Program and strategies. Assessment: 19:28 General: Appears in no apparent distress. comfortable, Behavior is calm, cooperative, rr5 drowsy. Pain: Denies pain. Neuro: Level of Consciousness is awake, alert, obeys commands, Oriented to person, place, time. Cardiovascular: Capillary refill < 3 seconds Patient's skin is warm and dry. Respiratory: Airway is patent Respiratory effort is even, unlabored, Respiratory pattern is regular, symmetrical. GI: No signs and/or symptoms were reported involving the gastrointestinal system. : No signs and/or symptoms were reported regarding the genitourinary system. EENT: No signs and/or symptoms were reported regarding the EENT system. Derm: Skin is intact, is healthy with good turgor, Skin temperature is warm. Musculoskeletal: Circulation, motion, and sensation intact. Capillary refill < 3 seconds. 19:50 Reassessment: Report given to receiving nurse. ea Vital Signs: 16:27 BP 154 / 85; Pulse 85; Resp 19; Temp 98.5; Pulse Ox 100% ; Weight 96.62 kg; Height 4 [facility] ft. 11 in. (149.86 cm); 18:00 Pulse 87; Resp 26; Pulse Ox 100% ; bp 19:55 BP 145 / 69; Pulse 80; Resp 20; Temp 98.2; Pulse Ox 100% on R/A; ea 16:27 Body Mass Index 43.02 (96.62 kg, 149.86 cm) [facility] ED Course: 16:19 Patient arrived in ED. ds1 16:22 Beau Encarnacion MD is Attending Physician. rn 16:27 Sweta Silva RN is Primary Nurse. bw 16:30 Triage completed. jl7 16:32 Arm band placed on right wrist. jl7 17:12 Initial lab(s) drawn, by me, sent to lab. Inserted saline lock: 22 gauge in left aa5 antecubital area, using aseptic technique. Blood collected. 17:26 CT Head Brain wo Cont In Process Unspecified. EDMS 17:26 Abdomen In Process Unspecified. EDMS 18:12 Chester Rivers DO is Hospitalizing Provider. rn 18:19 Miguel Encarnacion MD is Hospitalizing Provider. la1 18:33 Chester Rivers DO is Hospitalizing Provider. iw 18:41 AMMONIA Sent. bw 19:29 Patient has correct armband on for positive identification. Placed in gown. Bed in low rr5 position. Call light in reach. Side rails up X2. manager monitoring on. Pulse ox on. NIBP on. 19:48 No provider procedures requiring assistance completed. Patient admitted, IV remains in ea place. intact, bleeding controlled, No redness/swelling at site. Pressure dressing applied. Administered Medications: 17:45 Drug: NS 0.9% 500 ml Route: IV; Rate: bolus; Site: left antecubital; jl7 18:30 Follow up: Response: No adverse reaction; IV Status: Completed infusion; IV Intake: jl7 500ml 18:30 Drug: NS 0.9% 500 ml Route: IV; Rate: bolus; Site: left antecubital; bw 19:48 Follow up: Response: No adverse reaction; IV Status: Completed infusion; IV Intake: ea 500ml 19:01 Drug: Cipro 400 mg Volume: 200 ml; Route: IVPB; Infused Over: 60 mins; Site: left jl7 antecubital; 19:49 Follow up: Response: No adverse reaction; IV Status: Completed infusion ea Intake: 18:30 IV: 500ml; Total: 500ml. jl7 19:48 IV: 500ml; Total: 1000ml. ea Outcome: 18:13 Decision to Hospitalize by Provider. rn 19:48 Condition: stable ea 19:50 Instructed on the need for admit, Demonstrated understanding of instructions. ea 20:00 Admitted to Med/surg accompanied by tech, via stretcher, room 232, with chart, Report ea called to Receiving nurse on second floor 20:01 Patient left the ED. ea Signatures: Dispatcher [employer] EDIN Kylee Johnson ds1 Albania Fernandez, RN RN Beau Chatman MD MD rn Calderon, Audri, RN RN aa5 Anthony Samuel, DELI ASSOCIATE-C DELI ASSOCIATE-Cla1 Nupur Brady RN RN jl7 Natalia Greco RN Mikhail Urbano ea, RN RN Miguel Traylor, RN RN rr5 Sweta Silva RN RN bw Corrections: (The following items were deleted from the chart) 19:00 18:30 NS 0.9% 500 ml IV at bolus in left antecubital jl7 jl7
[2020-10-10] MEDS ORDERED: NA CHLORIDE 0.9% 1,000 ML ONE (18:25)
[2020-10-10] MEDS ORDERED: CIPROFLOXACIN 400mg IV 400 MG/200 ML BAG IV ONE (19:15)
--- NOTE | 2020-10-10 19:35 | P.HP ---
Certification for Inpatient Patient admitted to: Observation With expected LOS: <2 Midnights Patient will require the following post-hospital care: None Practitioner: I am a practitioner with admitting privileges, knowledge of patient current condition, hospital course, and medical plan of care. Services: Services provided to patient in accordance with Admission requirements found in Title 42 Section 412.3 of the Code of Federal Regulations <Anthony Samuel - Last Filed: 10/10/20 19:29> Patient admitted to: Observation <Chester Rivers - Last Filed: 10/11/20 08:49> Patient History Date of Service: 10/10/20 Primary Care Provider: Dr. Tamez Reason for admission: AMS/UTI History of Present Illness: 60-year-old female with history of alcoholic cirrhosis of the liver status post TIPS procedure, CKD presents the emergency department for altered mental status. reports that patient was taken to any other emergency department recently for similar complaint and her ammonia level was around 60. Patient was given extra dose of lactulose and discharge but mental status did not improved. Has been reportedly spoke with her liver doctor who stated that if her mental status has not improved she should likely be further evaluated/admitted. Patient was brought into the emergency department for evaluation. In the emergency department lab significant for elevated white blood cell count 15.7, hemoglobin 10.6 hematocrit 32.7, platelets 130. Creatin ine 1.14 GFR 49 this is improved from her kidney function previously. Patient does appear dry, noted to have urinary tract infection with 20-50 bacteria on urine microscopic evaluation. Patient does report some mild lower back pain that she gets when she has urinary tract infections. Patient also reports having visual hallucinations for the past 2-3 weeks, reports seeing usually small children sitting by her bedside. Patient denies any auditory hallucinations or suicidal ideations. ED provider wishes to admit patient for altered mental status/UTI. Ammonia level within normal limits at this time. - Past Medical/Surgical History Diabetic: No -: Crohn's Disease -: Liver disease -: Depression -: Alcoholic Liver Cirrhosis status post TIPS procedure -: OCD -: Parkinson's -: CKD 3 -: Anemia chronic disease -: multiple abdominal surgery due to Crohn's -: TIPS procedure -: Bleeding esophageal varices surgery Psychosocial/ Personal History: Patient disabled, lives with family - Family History Mother Notes: pt was adopted - Social History Smoking Status: Former smoker Alcohol use: No CD- Drugs: No Caffeine use: Yes Place of Residence: Home <Anthony Samuel - Last Filed: 10/10/20 19:29> Date of Service: 10/11/20 Home medications list reviewed: Yes - Past Medical/Surgical History -: Chronic liver cirrhosis with TIPS procedure -: Depression with anxiety -: Neuropathy -: Insomnia -: Chronic 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 <Chester Rivers - Last Filed: 10/11/20 08:49> Allergies ceftriaxone [From Rocephin] Allergy (Verified 10/10/20 20:17) Anaphylaxis iodine Allergy (Verified 10/10/20 20:17) Anaphylaxis promethazine [From Phenergan] Allergy (Verified 10/10/20 20:17) Itching Fish Allergy (Uncoded 10/10/20 20:17) Rash Home Medications: Allopurinol 100 mg PO DAILY 04/10/20 Benztropine Mesylate 0.5 mg PO BEDTIME 04/10/20 Carbidopa/Levodopa [Carbidopa-Levodopa 25-100 Tab] 1 tab PO DAILY 04/10/20 Escitalopram Oxalate [Lexapro] 15 mg PO BEDTIME 04/10/20 Furosemide [Lasix] 40 mg PO DAILY 04/10/20 Gabapentin 600 mg PO BEDTIME 04/10/20 Lactulose [Kristalose] 20 gm PO TID 04/10/20 Ondansetron [Ondansetron Odt] 4 mg PO Q12HP PRN 04/10/20 Pantoprazole [Protonix Tab*] 40 mg PO DAILY 04/10/20 Propranolol [Inderal*] 10 mg PO BID 04/10/20 Quetiapine Fumarate [Seroquel] 250 mg PO BEDTIME 04/10/20 Rifaximin [Xifaxan] 550 mg PO BID 04/10/20 Spironolactone [Aldactone*] 100 mg PO DAILY 04/10/20 Suvorexant [Belsomra] 10 mg PO BEDTIME 04/10/20 Zinc Sulfate [Zinc Sulfate*] 220 mg PO BID 04/10/20 Ciprofloxacin HCl [Cipro 250 MG Tablet*] 250 mg PO BID #14 tab 10/11/20 Review of Systems 10-point ROS is otherwise unremarkable Musculoskeletal: Other (Lower back pain) Neurological: Confusion, Other (Visual hallucinations) <Anthony Samuel - Last Filed: 10/10/20 19:29> Physical Examination - Physical Exam General: Alert, In no apparent distress, Other (Patient is confused, speech is slowed. Patient responds to questions inappropriately but does correct herself. Oriented x2 at this time.) HEENT: Atraumatic, PERRLA, Other (Mucous membranes dry), EOMI, Sclerae nonicteric Neck: Supple, 2+ carotid pulse no bruit, No LAD, Without JVD or thyroid a bnormality Respiratory: Clear to auscultation bilaterally, Normal air movement Cardiovascular: Regular rate/rhythm, Normal S1 S2 Capillary refill: <2 Seconds Gastrointestinal: Normal bowel sounds, No tenderness Musculoskeletal: No tenderness Integumentary: No rashes Neurological: Normal strength at 5/5 x4 extr, Normal tone, Normal affect, Abnormal speech (Speech slow, slurred) - Studies Laboratory Data (last 24 hrs) 10/10/20 17:11: WBC 15.70 H, Hgb 10.6 L, Hct 32.7 L, Plt Count 130 L 10/10/20 17:11: Sodium 146 H, Potassium 3.6, BUN 11, Creatinine 1.14, Glucose 115 H, Total Bilirubin 0.7, AST 22, ALT 30, Alkaline Phosphatase 140 H, Lipase 172 <Anthony Samuel - Last Filed: 10/10/20 19:29> - Studies Laboratory Data (last 24 hrs) 10/10/20 17:11: WBC 15.70 H, Hgb 10.6 L, Hct 32.7 L, Plt Count 130 L 10/10/20 17:11: Sodium 146 H, Potassium 3.6, BUN 11, Creatinine 1.14, Glucose 115 H, Total Bilirubin 0.7, AST 22, ALT 30, Alkaline Phosphatase 140 H, Lipase 172 <Chester Rivers - Last Filed: 10/11/20 08:49> Assessment and Plan - Plan Assessment Metabolic encephalopathy likely secondary to hepatic encephalopathy/UTI with history of alcoholic cirrhosis of the liver status post TIPS procedure CKD 3 Anemia chronic disease Thrombocytopenia History of Crohn's disease Plan Metabolic encephalopathy likely secondary to hepatic encephalopathy/UTI with history of alcoholic cirrhosis of the liver status post TIPS procedure: Continue with IV Cipro at this time due to allergy to ceftriaxone. Urine culture obtained. Ammonia level normal today, will trend. Patient appears dehydrated will continue with IV fluids overnight. Continue scheduled lactulose. DVT prophylaxis Lovenox 40 mg subcutaneous once daily with parameters for thrombocytopenia. CKD 3: Renal function stable/improved at this time. Continue with maintenance fluids overnight. Anemia chronic disease: Stable, daily lab. Transfuse hemoglobin less than 7. Thrombocytopenia: Platelets 130, trend. Hold Lovenox for platelets less than 100. History of Crohn's disease: Stable this time. Discharge Plan: Home Plan to discharge in: 24 Hours - Advance Directives Does patient have a Living Will: Yes Does patient have a Durable POA for Healthcare: Yes - Code Status/Comfort Care Code Status Assessed: Yes (Full code) Critical Care: No Time Spent Managing Pts Care (In Minutes): 55 <Anthony Samuel - Last Filed: 10/10/20 19:29> - Plan Case discussed in detail with nurse practitioner. Agree with plan of care. Please see discharge summary for details. <Chester Rivers - Last Filed: 10/11/20 08:49>
[2020-10-10] MEDS ORDERED: ONDANSETRON 4 MG/2 ML VIAL IV PRN (19:48)
[2020-10-10] MEDS ORDERED: MELATONIN 5 MG TABLET PO PRN (19:48)
[2020-10-10] MEDS ORDERED: POTASSIUM CL SA 10 MEQ TAB PO ONE (20:00)
[2020-10-10 20:33] VITALS: O2SAT 100
[2020-10-10] MEDS: NA CHLORIDE 0.9% 1,000 ML IV SCH (20:45)
[2020-10-10] MEDS ORDERED: LACTULOSE 20 GM/30 ML UCUP PO SCH (21:00)
[2020-10-10 22:22] VITALS: BMI 52.3
[2020-10-11] MEDS ORDERED: TRAMADOL HCL 50 MG TAB PO PRN (05:30)
[2020-10-11] MEDS: NA CHLORIDE 0.9% 1,000 ML IV SCH (05:43)
[2020-10-11 06:10] LABS: Absolute Lymphocytes (CBC) 1.9 K/uL (0.7-4.9); Basophils % 1.1 % (0-1.3); Lymphocytes % 19.6 % (15.3-44.8); RBC Red Blood Cell Count 4.01 M/uL (3.86-4.86)
--- NOTE | 2020-10-11 06:22 | EKG ---
Test Date: 2020-10-10 Test Time: 19:44:20 Weir Fisher: RR MEASUREMENT RESULTS: Intervals: Rate: 72 NH: 176 QRSD: 84 QT: 392 QTc: 429 [place]: P: 53 NH: 176 QRS: 31 T: 17 INTERPRETIVE STATEMENTS: Normal sinus rhythm with sinus arrhythmia Normal ECG Compared to ECG 03/17/2018 23:33:04 No significant changes Electronically Signed On 10-11-20 06:21:14 RAND BUTTING MACHINE OPERATOR by Nico Caldwell
[2020-10-11 06:31] LABS: Albumin 3.3 g/dL (3.4-5.0); Bilirubin Total 0.8 mg/dL (0.2-1.0); Potassium 3.6 mmol/L (3.5-5.1); Protein, Total 6.9 g/dL (6.4-8.2)
[2020-10-11 06:39] LABS: Thyroid Stimulating Hormone 7.49 uIU/mL (0.360-3.740)
[2020-10-11 06:45] LABS: Blood Morphology Comment NOT SEEN (NOT SEEN); Platelet Estimate DECR; White Blood Cell Scan OK (OK)
[2020-10-11 08:31] VITALS: BP 130/64; TEMP 97.5
--- NOTE | 2020-10-11 08:31 | P.DS ---
Admission Date: 10/10/20 Discharge Date: 10/11/20 Primary Care Provider: Dr. Díaz/Dr. Tamez; GI-Dr. Garcia Disposition: ROUTINE DISCHARGE Discharge Condition: GOOD Reason for Admission: AMS/UTI Consultations: none Procedures: COVID: Negative CT Head: FINDINGS: No intracranial hemorrhage, hydrocephalus or extra-axial fluid collection.No areas of brain edema or evidence of midline shift. 16 mm mucous retention cyst or polyp in the right maxillary antrum. The paranasal sinuses and mastoids are otherwise clear. The calvarium is intact. IMPRESSION: No acute intracranial abnormality. CT scan: FINDINGS: The lower lung lopez are clear. The TIPS shunt is present within the liver. Cholecystectomy clips are seen. The spleen is mildly enlarged in size.The pancreas, adrenal glands are normal. Punctate stone is present in the right kidney without hydronephrosis. There is a prominent cyst involving the cortex of left kidney measuring 4.7 cm. No bowel obstruction, free air, free fluid or abscess. The colon is largely fluid-filled. The appendix appears surgically absent. Evidence of prior ventral hernia repair noted. The osseous structures are within normal limits. IMPRESSION: No acute intra-abdominal or pelvic findings. A limited non-contrast examination was performed as detailed. Medical problem List: Toxic/Metabolic encephalopathy secondary to UTI complicated with chronic alcoholic cirrhosis with prior TIPS procedure and hepatic encephalopathy CKD 3 Anemia of chronic disease Chronic Thrombocytopenia related to her cirrhosis Parkinsons Depression with anxiety and insomnia Abnormal tsh/free T4 suspect possible underlying hypothyroidism Brief History of Present Illness: 60-year-old female with history of alcoholic cirrhosis of the liver/TIPS procedure, CKD, depression with anxiety, GERD, Parkinson's presents the emergency department for altered mental status. reports that patient was taken to any other emergency department recently for similar compla int and her ammonia level was around 60. Patient was given extra dose of lactulose and discharge but mental status did not improved. Patient was brought into the emergency department for evaluation. In the emergency department lab significant for elevated white blood cell count 15.7, hemoglobin 10.6 hematocrit 32.7, platelets 130. Creatinine 1.14 GFR 49 this is improved from her kidney function previously. Patient does appear dry, noted to have urinary tract infection with 20-50 bacteria on urine microscopic evaluation. Patient does report some mild lower back pain that she gets when she has urinary tract infections. Patient also reports having visual hallucinations for the past 2-3 weeks, reports seeing usually small children sitting by her bedside. Patient denies any auditory hallucinations or suicidal ideations. Patient admitted for further evaluation observation. Hospital Course: Patient presented with toxic/metabolic encephalopathy. This was related to UTI. This was complicated with her history of chronic alcoholic cirrhosis with prior TIPS procedure and hepatic encephalopathy. Ammonia level initially normal. Patient was treated with antibiotic therapy and IV fluids. Her condition improved. Patient appears to be back to her baseline level. At discharge patient will continue with Cipro 250 mg 1 pill twice daily for 7 days for the UT I. UTI prevention will be provided. At discharge the patient will continue with her current medications for her cirrhosis including Xifaxan 550 mg 1 pill twice daily, lactulose 20 g 3 times a day, and propanolol 10 mg 1 pill twice daily. She should maintain 3-4 bowel movements per day. Patient also takes Aldactone 100 mg daily and Lasix 40 mg daily. Patient will continue with a 1500 cc per day fluid restriction and low-salt diet. Further adjustment can be done by her PCP or GI specialist. Recommend follow up with her GI specialist in 2-4 weeks. Recommend follow up with her PCP within 1 week to follow up this hospitalization. PCP will need to follow up on urine culture results. Patient with chronic renal disease stage III. This appears stable. Future medications will need to be renally dosed. Recommend no further use of nonsteroidal anti-inflammatories. At discharge patient will continue with a 1500 cc per day fluid restriction and low-salt diet. Recommend to recheck lab- BMP in 2-4 weeks to monitor stability. Patient with anemia of chronic disease and chronic thrombocytopenia related to her cirrhosis. This appears stable at this time. Recommend to recheck lab-CBC in 2-4 weeks to monitor stability. Patient with history of GERD. At discharge patient will continue with Protonix 40 mg daily. Patient with history of gout. At discharge patient will continue with allopurinol 100 mg daily. Patient with depression with anxiety and insomnia. At discharge she will continue with Lexapro 15 mg at bedtime, Seroquel 250 mg at bedtime, Benztropine 0.5 mg at bedtime and Belsomra 10 mg at bedtime. Recommend to hold Belsomra, Seroquel if with increased sedation. Further adjustment can be done by her psychiatrist or PCP. Patient with Parkinson's. At discharge she will continue with carbidopa levodopa as directed. Patient may continue with her other medications including zinc and gabapentin. May need to hold gabapentin if with increase sedation. Patient had slightly abnormal tsh and free T4. This may indicate hypothyroidism. Recommend to recheck tsh and free T4 in 2-4 weeks. If still abnormal patient will likely require thyroid medication. This can be addressed by her PCP. Vital Signs/Physical Exam: Temp Pulse Resp BP Pulse Ox 98.9 F 72 18 118/62 99 10/11/20 04:00 10/11/20 04:00 10/11/20 04:00 10/11/20 04:00 10/11/20 04:00 General: Alert, In no apparent distress, Oriented x3, Cooperative, Other (No hallucinations noted) HEENT: Atraumatic Neck: Supple Respiratory: Clear to auscultation bilaterally, Normal air movement Cardiovascular: Normal pulses, Regular rate/rhythm Gastrointestinal: Normal bowel sounds, Soft and benign, Non-distended, No masses, No rebound, No guarding Integumentary: No erythema, No warmth, No cyanosis Neurological: Normal speech, Normal strength at 5/5 x4 extr, Normal tone, Normal affect Laboratory Data at Discharge: WBC 9.70 K/uL (4.3-10.9) D 10/11/20 05:54 Hgb 11.2 g/dL (12.0-15.0) L 10/11/20 05:54 Hct 35.0 % (36.0-45.0) L 10/11/20 05:54 Plt Count 104 K/uL (152-406) L 10/11/20 05:54 Sodium 148 mmol/L (136-145) H 10/11/20 05:54 Potassium 3.6 mmol/L (3.5-5.1) 10/11/20 05:54 BUN 12 mg/dL (7-18) 10/11/20 05:54 Creatinine 1.05 mg/dL (0.55-1.3) 10/11/20 05:54 Glucose 101 mg/dL (74-106) 10/11/20 05:54 Magnesium 2.0 mg/dL (1.8-2.4) 10/11/20 05:54 Total Bilirubin 0.8 mg/dL (0.2-1.0) 10/11/20 05:54 AST 25 U/L (15-37) 10/11/20 05:54 ALT 29 U/L (12-78) 10/11/20 05:54 Alkaline Phosphatase 129 U/L (45-117) H 10/11/20 05:54 Triglycerides 69 mg/dL (<150) 10/11/20 05:54 Cholesterol 113 mg/dL (<200) 10/11/20 05:54 HDL Cholesterol 43 mg/dL (40-60) 10/11/20 05:54 Cholesterol/HDL Ratio 2.63 10/11/20 05:54 Lipase 172 U/L (73-393) 10/10/20 17:11 Home Medications: Allopurinol 100 mg PO DAILY 04/10/20 Benztropine Mesylate 0.5 mg PO BEDTIME 04/10/20 Carbidopa/Levodopa [Carbidopa-Levodopa 25-100 Tab] 1 tab PO DAILY 04/10/20 Escitalopram Oxalate [Lexapro] 15 mg PO BEDTIME 04/10/20 Furosemide [Lasix] 40 mg PO DAILY 04/10/20 Gabapentin 600 mg PO BEDTIME 04/10/20 Lactulose [Kristalose] 20 gm PO TID 04/10/20 Ondansetron [Ondansetron Odt] 4 mg PO Q12HP PRN 04/10/20 Pantoprazole [Protonix Tab*] 40 mg PO DAILY 04/10/20 Propranolol [Inderal*] 10 mg PO BID 04/10/20 Quetiapine Fumarate [Seroquel] 250 mg PO BEDTIME 04/10/20 Rifaximin [Xifaxan] 550 mg PO BID 04/10/20 Spironolactone [Aldactone*] 100 mg PO DAILY 04/10/20 Suvorexant [Belsomra] 10 mg PO BEDTIME 04/10/20 Zinc Sulfate [Zinc Sulfate*] 220 mg PO BID 04/10/20 Ciprofloxacin HCl [Cipro 250 MG Tablet*] 250 mg PO BID #14 tab 10/11/20 New Medications: Ciprofloxacin HCl [Cipro 250 MG Tablet*] 250 mg PO BID #14 tab Physician Discharge Instructions: Patient presented with toxic/metabolic encephalopathy. This was related to UTI. This was complicated with her history of chronic alcoholic cirrhosis with prior TIPS procedure and hepatic encephalopathy. Ammonia level initially normal. Patient was treated with antibiotic therapy and IV fluids. Her condition improved. Patient appears to be back to her baseline level. At discharge patient will continue with Cipro 250 mg 1 pill twice daily for 7 days for the UTI. UTI prevention will be provided. At discharge the patient will continue with her current medications for her cirrhosis including Xifaxan 550 mg 1 pill twice daily, lactulose 20 g 3 times a day, and propanolol 10 mg 1 pill twice daily. She should maintain 3-4 bowel movements per day. Patient also takes Aldactone 100 mg daily and Lasix 40 mg daily. Patient will continue with a 1500 cc per day fluid restriction and low-salt diet. Further adjustment can be done by her PCP or GI specialist. Recommend follow up with her GI specialist in 2-4 weeks. Recommend follow up with her PCP within 1 week to follow up this hospitalization. PCP will need to follow up on urine culture results. Patient with chronic renal disease stage III. This appears stable. Future medications will need to be renally dosed. Recommend no further use of nonsteroidal anti-inflammatories. At discharge patient will continue with a 1500 cc per day fluid restriction and low-salt diet. Recommend to recheck lab- BMP in 2-4 weeks to monitor stability. Patient with anemia of chronic disease and chronic thrombocytopenia related to her cirrhosis. This appears stable at this time. Recommend to recheck lab-CBC in 2-4 weeks to monitor stability. Patient with history of GERD. At discharge patient will continue with Protonix 40 mg daily. Patient with history of gout. At discharge patient will continue with allopurinol 100 mg daily. Patient with depression with anxiety and insomnia. At discharge she will continue with Lexapro 15 mg at bedtime, Seroquel 250 mg at bedtime, Benztropine 0.5 mg at bedtime and Belsomra 10 mg at bedtime. Recommend to hold Belsomra, Seroquel if with increased sedation. Further adjustment can be done by her psychiatrist or PCP. Patient with Parkinson's. At discharge she will continue with carbidopa levodopa as directed. Patient may continue with her other medications including zinc and gabapentin. May need to hold gabapentin if with increase sedation. Patient had slightly abnormal tsh and free T4. This may indicate hypothyroidism. Recommend to recheck tsh and free T4 in 2-4 weeks. If still abnormal patient will likely require thyroid medication. This can be addressed by her PCP. Diet: Renal Activity: Fall precautions Followup: Unknown,U [Primary Care Provider] - Time spent managing pt's care (in minutes): 55
[2020-10-11] MEDS ORDERED: CIPROFLOXACIN 400mg IV 400 MG/200 ML BAG IV SCH (09:00)
[2020-10-11] MEDS ORDERED: ENOXAPARIN 40 MG/0.4 ML SQ SCH (09:00)
[2020-10-11] MEDS ORDERED: CARBIDOPA/LEVODOPA 25/100 TAB PO SCH (09:00)
[2020-10-11] MEDS ORDERED: allopurinoL 100 MG TAB PO SCH (09:00)
[2020-10-11] MEDS ORDERED: Rifaximin 550 MG Tab PO SCH (09:00)
[2020-10-11] MEDS ORDERED: PANTOPRAZOLE 40MG TABLET PO SCH (09:00)
[2020-10-11] MEDS ORDERED: PROPRANOLOL HCL 10 MG TAB PO SCH (09:00)
[2020-10-11] MEDS ORDERED: FUROSEMIDE 40 MG TABLET PO SCH (09:00)
[2020-10-11] MEDS ORDERED: POTASSIUM CL SA 10 MEQ TAB PO ONE (09:00)
[2020-10-11] MEDS ORDERED: SPIRONOLACTONE 100 MG TAB PO SCH (09:00)
[2020-10-11] MEDS ORDERED: ZINC SULFATE 220 MG CAP PO SCH (09:00)
[2020-10-11] MEDS ORDERED: ESCITALOPRAM 20 MG TAB PO SCH (21:00)
[2020-10-11] MEDS ORDERED: BENZTROPINE 1 MG TAB PO SCH (21:00)
[2020-10-11] MEDS ORDERED: GABAPENTIN 300 MG CAP PO SCH (21:00)
[2020-10-11] MEDS ORDERED: QUETIAPINE 100MG TAB PO SCH (21:00)
== END 2020-10-11 09:37 | disposition home or self-care (01) ==
LOC: ER 16:18 → ERHOLD 19:24 → 2ND 19:51
PROVIDERS: ADMIT Family Medicine; ATTEND Family Medicine
DX: G92 Toxic encephalopathy (principal); N39.0 Urinary tract infection, site not specified; K70.30 Alcoholic cirrhosis of liver without ascites; D63.1 Anemia in chronic kidney disease; D69.59 Other secondary thrombocytopenia; G20 Parkinson's disease; Z20.822 Contact with and (suspected) exposure to COVID-19; F41.8 Other specified anxiety disorders; G47.00 Insomnia, unspecified; K21.9 Gastro-esophageal reflux disease without esophagitis; N18.30 Chronic kidney disease, stage 3 unspecified; M10.9 Gout, unspecified; K50.90 Crohn's disease, unspecified, without complications; F42.9 Obsessive-compulsive disorder, unspecified; Z87.891 Personal history of nicotine dependence
CPT/HCPCS: 36415; 70450; 74176; 80048; 80053; 80061; 80076; 81003; 81015; 82140; 83690; 83735; 84145; 84439; 84443; 85025; 87077; 87086; 87088; 87186; 93005; 96361; 96365; 99285; G0378; J0744; J1650; J7030; U0003

== ENCOUNTER 2020-11-01 12:30 | Emergency (ER) | payer OTHER ==
--- OUTSIDE RECORDS SUMMARY | 2020-11-01 12:34 | XMS REPORT | Continuity of Care Document ---
:1960 Author Organization [facility] t Address [address] [place] [address] Care Team Providers Name Role Phone TELLO Attending Clinician Unavailable ROLANDO Attending Clinician Unavailable AICHA Attending Clinician Unavailable ROM Attending Clinician Unavailable CHELA Attending Clinician Unavailable [...] Not [facility] Reaction Available [facility] Clinics Iodine Adverse Active Info Not [facility] Reaction Available [facility] Medications Ordered Filled Start Stop Current Ordering Indication Dosage Frequency Signature Comments Components Source Medication Medication Date Date Medication? Clinician (SIG) Name Name Allopurinol Allopurinol Yes Fernando [address] ent Clinics Procedures This patient has no known procedures. Encounters Start End Encounter Admission Attending Care Care Encounter Source Date/Time Date/Time Type Type Clinicians Facility Department ID 2020-10-26 2020-10-26 Outpatient TELLO [facility] [id number] [place] 00:00:00 00:00:00 AGUSTÍN [address] 2020-10-26 2020-10-26 Outpatient TELLO [facility] [id number] [place] 00:00:00 00:00:00 AGUSTÍN [address] 2020-10-23 2020-10-24 Inpatient ROLANDO, [facility] [id number] [place] 00:00:00 00:00:00 CUAUHTEMOC [address] 2020-10-11 2020-10-11 Outpatient [facility]LMLC [facility] [id number] [facility] [place] [facility]:00[facility]00 [facility]00[facility] 2020-10-09 2020-10-09 Emergency AICHA, [facility] [id number] [place] 00:00:00 00:00:00 ATIF [address] 2020-10-03 2020-10-03 Outpatient STLMLC [facility] [id number] [place] 00:00:00 00:00:00 [facility] 2020-09-19 2020-09-21 Inpatient DESTINI CUETO [facility] [id number] [place] 00:00:00 00:00:[address] 2020-09-14 2020-09-14 Outpatient STLMLC [facility] [id number] [place] 00:00:00 00:00:00 [facility] 2020-08-31 2020-09-02 Inpatient ROLANDO, [facility] [id number] [place] 00:00:00 00:00:00 CUAUHTEMOC [address] 2020-08-10 2020-08-13 Inpatient YORK, [facility] [id number] [place] 00:00:00 00:00:00 ANDRES [address] 2020-08-09 2020-08-09 Emergency NUSZEN, [facility] [id number] [place] 00:00:00 00:00:00 KAYCEE [address] 2020-08-08 2020-08-08 Emergency WEIBEL, [facility] [id number] [place] 00:00:00 00:00:00 NOBLE [address] 2020-07-27 2020-07-27 Outpatient [facility] [id number] [facility] 2020-07-18 2020-07-18 Outpatient [facility] [id number] [place] 00:00:00 00:00:[address] 2020-07-04 2020-07-07 Inpatient DESTINI CUETO [facility] [id number] [place] 00:00:00 00:00:[address] 2020-06-28 2020-06-28 Outpatient [facility] [id number] [facility] 2020-06-20 2020-06-20 Outpatient [facility] [id number] [facility]00 [facility] 2020-05-30 2020-06-03 Inpatient DESTINI CUETO [facility] [id number] [place] 00:00:00 00:00:[address] 2020-05-27 2020-05-27 Outpatient YALAMANCHIL [facility] [id number] [place] 00:00:00 00:00:00 YIFAN Torres [address] 2020-05-20 2020-05-20 Outpatient [facility]LMLC [facility] [id number] [facility] 00:00:00 00:00:00 [facility] Clin[facility] 2020-05-13 2020-05-17 Inpatient MCCARTAN, [facility] [id number] [place] 00:00:00 00:00:00 MER[facility] [address] 2020-04-13 2020-04-21 Inpatient YOJANA, [facility] [id number] [place] 00:00:00 00:00:00 JUNO [address] 2020-04-13 2020-04-13 [facility] [id number] 16:02:00 16:02:00 [place] [facility] Outpat[facility] Clinics 2020-04-13 2020-04-13 [facility] [id number] 09:33:00 09:33:[address] [place] [address] - [address] [facility] Medicine Medicine Outpati ent Clinics 2020-04-05 2020-04-05 [facility] [id number] 09:10:00 09:10:00 [employer] s - Drive [facility] Medicine Outpati ent Clinics 2020-04-04 2020-04-04 [facility] [id number] 10:58:00 10:58:00 [employer] [address] - Drive [facility] Medicine l Medicine Outpati ent Clinics 2020-04-04 2020-04-04 [facility] [id number] 10:00:00 10:00:00 [employer] [place] - Drive [facility] Medicine Outpati ent Clinics 2020-03-17 2020-03-19 Inpatient [facility] [id number] [place] 00:00:00 00:00:00 Ben BARCENAS [facility] [address] 2020-03-16 2020-03-16 [facility] [id number] 11:12:00 11:12:00 [address] [place] [address] - Drive [facility] Medicine Outpati ent Clinics 2020-03-14 2020-03-14 Outpatient JACQUELIN [facility] [id number] [place] 00:00:00 00:00:00 EBONY [address] 2020-03-10 2020-03-10 [facility] [id number] 13:18:00 13:18:00 [address] [place] [address] - Drive [facility] Medicine Outpati ent Clinics 2020-03-07 2020-03-07 [facility] [id number] 16:07:00 16:07:00 [address] [place] [address] - Drive [facility] Medicine Outpati ent Clinics 2020-03-04 2020-03-04 [facility] [id number] 11:00:00 11:00:00 [employer] - Drive [facility] Medicine Outpati ent Clinics 2020-03-04 2020-03-04 Out[facility] [id number] [facility] 11:00:00 11:00:00 [facility] 2020-03-04 2020-03-04 Outpatient MEAGAN, [facility] [id number] [place] 00:00:00 00:00:00 JAYASIMHA [address] 2020-02-18 2020-02-21 Inpatient YORK, [facility] [id number] [place] 00:00:00 00:00:00 ANDRES 304 [facility] 2020-01-18 2020-01-20 Inpatient DINAKAR, [facility] [id number] [place] 00:00:00 00:00:00 CUAUHTEMOC 881 [facility] i 2020-01-07 2020-01-11 Inpatient YORK, [facility] [id number] [place] 00:00:00 00:00:00 ANDRES 087 [facility] i 2019-12-29 2019-12-29 [facility] [id number] [facility] 07:03:00 07:03:00 [facility] 2019-12-23 2019-12-25 Inpatient TING [facility] [id number] [place] 00:00:00 00:00:00 SWAPNA 540 [address] i BAYLEE 2019-12-23 2019-12-23 Outpatient JACQUELIN, [facility] [id number] [place] 00:00:00 00:00:00 AHMED 960 [address] i 2019-12-22 2019-12-22 [facility] [id number] 14:08:03 14:56:41 Visit [facility] [id number] Surgical [id number] Specialti [id number] es 198 [place] 2019-10-12 2019-10-15 Inpatient YORK, [facility] [id number] [place] 00:00:00 00:00:00 ANDRES 906 [address] i 2019-09-01 2019-09-03 Inpatient YORK, [facility] [id number] [place] 00:00:00 00:00:00 ANDRES 637 [facility] i 2019-07-20 2019-07-20 [facility] [id number] 14:02:00 14:02:[address] [place] [address] - Drive [facility] Medicine l Medicine Outpati ent Clinics 2019-07-16 2019-07-16 [facility] [id number] 13:15:00 13:15:[address] [place] [address] - [address] [facility] l Medicine Outpati ent Clinics 2019-06-16 2019-06-18 Inpatient YORK, [facility] [id number] [place] 00:00:00 00:00:00 ANDRES [address] 2019-05-07 2019-05-08 Outpatient DARCY, UMAR [facility] [id number] [place] 00:00:00 00:00:[address] 2019-04-23 2019-04-23 Outpatient GALATI, [facility] [id number] [place] 00:00:00 00:00:00 BRAD [address] 2019-04-23 2019-04-23 Outpatient JACQUELIN, [facility] [id number] [place] 00:00:00 00:00:00 AHMED [address] 2019-04-15 2019-04-15 [facility] [id number] 14:19:00 14:19:[address] [place] [address] - Drive [facility] Medicine Outpati ent Clinics 2019-04-09 2019-04-09 [facility] [id number] 14:00:00 14:00:[address] [place] [address] - [address] [facility] l Medicine Outpati ent Clinics 2018-09-09 2018-09-09 [facility] [id number] 14:45:00 14:45:[address] [place] [address] - Drive [facility] Medicine l Medicine Outpati ent Clinics 2018-04-15 2018-04-15 [facility] [id number] 12:02:00 12:02:[address] [place] [address] - Drive [facility] Medicine l Medicine Outpati ent Clinics 2018-02-19 2018-02-19 [facility] [id number] 15:08:00 15:08:00 [employer] s - Drive [facility] 2018-01-24 2018-01-24 Outpatient [facility] [id number] 11:15:00 11:15:00 t [facility] ent Clinics Results This patient has no known results.
--- NOTE | 2020-11-01 13:40 | RAD REPORT ---
EXAM DESCRIPTION: CT - Abdomen Pelvis Wo Contrast - 11/01/2020 1:33 pm CLINICAL HISTORY: Abdominal pain. RLQ abd pain;Abd pain COMPARISON: Abdomen Pelvis Wo Contrast dated 10/10/2020 TECHNIQUE: CT imaging of the abdomen and pelvis was performed without contrast. Solid organ, bowel a nd vascular assessment is limited due to lack of IV and oral contrast. All CT scans are performed using dose optimization technique as appropriate and may include automated exposure control or mA/KV adjustment according to patient size. FINDINGS: The lower lung lopez are clear. Mild liver cirrhosis is noted. Cholecystectomy. TIPS shunt present. The spleen is mildly enlarged in size. The pancreas, adrenal glands are unremarkable. Small stones are present both kidneys. Large cys t is present left kidney measuring 5 cm, likely benign. No bowel obstruction, free air, free fluid or abscess. Anterior hernia mesh is present. Appendectomy noted. The osseous structures are within normal limits. IMPRESSION: No acute intra-abdominal or pelvic findings. A limited non-contrast examination was performed as detailed.
[2020-11-01 13:51] LABS: Absolute Lymphocytes (CBC) 1.3 K/uL (0.7-4.9); Basophils % 1.1 % (0-1.3); Hematocrit 30.5 % (36.0-45.0); Lymphocytes % 22.5 % (15.3-44.8); RBC Red Blood Cell Count 3.62 M/uL (3.86-4.86)
[2020-11-01 14:04] LABS: Urine Blood NEGATIVE (NEG); Urine Glucose NEGATIVE (NEG); Urine Protein NEGATIVE (NEG); Urine Specific Gravity 1.025 (1.005-1.030); Urine pH 6.5 (5.0-7.0)
[2020-11-01 14:07] LABS: Albumin 3.3 g/dL (3.4-5.0); Bilirubin Direct 0.3 mg/dL (0-0.2); Bilirubin Total 0.9 mg/dL (0.2-1.0); Potassium 3.7 mmol/L (3.5-5.1); Protein, Total 7.3 g/dL (6.4-8.2)
--- NOTE | 2020-11-01 14:37 | ER ---
Nurse's Notes [facility] Name: Bella Barron Age: 60 yrs Sex: Female : 1960 Arrival Date: 11/01/2020 Time: 12:40 Bed 16 Private MD: Diagnosis: Lower abdominal pain, unspecified;Diarrhea, unspecified Presentation: 11/01 12:40 Chief complaint: EMS states: Abdominal pain and dark red blood din stool x 2-3 days. hb Coronavirus screen: At this time, the client does not indicate any symptoms associated with coronavirus-19. Ebola Screen: No symptoms or risks identified at this time. Risk Assessment: Do you want to hurt yourself or someone else? Patient reports no desire to harm self or others. Onset of symptoms was October 30, 2020. 12:40 Method Of Arrival: EMS: [facility] hb 12:40 Acuity: OLEG 3 hb 12:59 Initial Sepsis Screen: Does the patient meet any 2 criteria? No. Patient's initial vg1 sepsis screen is negative. Does the patient have a suspected source of infection? No. Patient's initial sepsis screen is negative. Historical: - Allergies: 12:44 Iodine; hb 12:44 Phenergan; hb 12:44 Rocephin; hb - PMHx: 12:44 Cirrhosis; Colitis; Crohn's; Depression; Liver disease; needs kidney and liver hb transplant; ocd; - PSHx: 12:44 TIPS; hb - Immunization history:: Adult Immunizations up to date. - Social history:: Smoking status: Patient denies any tobacco usage or history of. - Family history:: not pertinent. - Hospitalizations: : The patient was recently seen at [facility]. Screenin:59 Abuse screen: Denies threats or abuse. Nutritional screening: No deficits noted. vg1 Tuberculosis screening: No symptoms or risk factors identified. Fall Risk No fall in past 12 months (0 pts). No secondary diagnosis (0 pts). IV access (20 points). Ambulatory Aid- None/Bed Rest/Nurse Assist (0 pts). Gait- Normal/Bed Rest/Wheelchair (0 pts) Mental Status- Oriented to own ability (0 pts). Total Schaefer Fall Scale indicates No Risk (0-24 pts). Assessment: 12:49 General: Appears in no apparent distress. uncomfortable, Behavior is calm, cooperative. vg1 Pain: Complains of pain in right upper quadrant and right lower quadrant Pain currently is 8 out of 10 on a pain scale. Pain began 1 hour ago. Neuro: Level of Consciousness is awake, alert, obeys commands, Oriented to person, place, time, situation. Cardiovascular: Patient's skin is warm and dry. Respiratory: Airway is patent Respiratory effort is even, unlabored. GI: Bowel sounds present X 4 quads. Abdomen is tender to palpation in right upper quadrant and right lower quadrant Reports diarrhea. : No signs and/or symptoms were reported regarding the genitourinary system. EENT: No signs and/or symptoms were reported regarding the EENT system. Derm: Skin is intact, Skin is pink, warm \T\ dry. Musculoskeletal: Circulation, motion, and sensation intact. 14:02 Reassessment: Patient appears in no apparent distress at this time. No changes from vg1 previously documented assessment. Patient and/or family updated on plan of care and expected duration. Pain level reassessed. Patient is alert, oriented x 3, equal unlabored respirations, skin warm/dry/pink. Vital Signs: 12:57 BP 124 / 67; Pulse 69; Resp 16; Pulse Ox 100% on R/A; vg1 12:58 Temp 97.9; Weight 96.62 kg; Height 4 ft. 11 in. (149.86 cm); Pain 8/10; vg1 14:09 BP 134 / 83; Pulse 68; Resp 18; Pulse Ox 100% ; vg1 14:50 BP 134 / 83; Pulse 67; Resp 16; Pulse Ox 100% on R/A; vg1 12:58 Body Mass Index 43.02 (96.62 kg, 149.86 cm) vg1 ED Course: 12:40 Patient arrived in ED. hb 12:43 Triage completed. hb 12:44 Arm band placed on. hb 12:46 Beau Encarnacion MD is Attending Physician. rn 12:49 Mariela House, AMARILIS is Primary Nurse. vg1 12:59 Patient has correct armband on for positive identification. Bed in low position. Call vg1 light in reach. Side rails up X2. 13:[address] via wheelchair. vg1 13:26 Initial lab(s) drawn, by me, sent to lab. Inserted saline lock: 22 gauge in left vg1 antecubital area, using aseptic technique. Blood collected. 13:31 CT Abd/Pelvis - Without Contrast In Process Unspecified. EDMS 14:50 No provider procedures requiring assistance completed. IV discontinued, intact, vg1 bleeding controlled, No redness/swelling at site. Pressure dressing applied. Administered Medications: No medications were administered Outcome: 14:37 Discharge ordered by . rn 14:50 Discharged to home ambulatory. vg1 14:50 Condition: stable 14:50 Discharge instructions given to patient, Instructed on discharge instructions, follow up and referral plans. Demonstrated understanding of instructions, follow-up care. 14:51 Patient left the ED. vg1 Signatures: Dispatcher [employer] EDMS Beau Encarnacion MD MD rn Baxter, Heather, RN RN hb Garcia, Victoria, RN RN vg1
--- NOTE | 2020-11-01 14:38 | EDPHYS ---
Physician Documentation [facility] Name: Bella Barron Age: 60 yrs Sex: Female : 1960 Arrival Date: 11/01/2020 Time: 12:40 Bed 16 Private MD: ED Physician Beau Encarnacion HPI: 11/01 13:13 This 60 yrs old Female presents to ER via EMS with complaints of Abdominal rn Pain. 13:13 The patient presents with abdominal pain right lower quadrant. Onset: The rn symptoms/episode began/occurred this morning. The symptoms do not radiate. Associated signs and symptoms: Pertinent positives: diarrhea, Pertinent negatives: fever, hematuria, vomiting, vomiting blood. The symptoms are described as achy, intermittent. Modifying factors: The symptoms are alleviated by nothing, the symptoms are aggravated by touching the area. Severity of pain: At its worst the pain was moderate in the emergency department the pain has improved. The patient has experienced similar episodes in the past. The patient has been recently been admitted at [facility]. Reports RLQ abd pain since this morning, assoc with diarrhea, she has not noticed blood in stool, caregiver stated she saw some dark blood, unknown amount. Pt does not feel confused. States complaint with medication. . Historical: - Allergies: 12:44 Iodine; hb 12:44 Phenergan; hb 12:44 Rocephin; hb - PMHx: 12:44 Cirrhosis; Colitis; Crohn's; Depression; Liver disease; needs kidney and liver hb transplant; ocd; - PSHx: 12:44 TIPS; hb - Immunization history:: Adult Immunizations up to date. - Social history:: Smoking status: Patient denies any tobacco usage or history of. - Family history:: not pertinent. - Hospitalizations: : The patient was recently seen at [facility]. ROS: 13:13 Constitutional: Negative for fever, chills, and weight loss, Eyes: Negative for injury, rn pain, redness, and discharge, Neck: Negative for injury, pain, and swelling, Cardiovascular: Negative for chest pain, palpitations, and edema, Respiratory: Negative for shortness of breath, cough, wheezing, and pleuritic chest pain, Abdomen/GI: + RLQ tenderness, no rebound, no masses : Negative for injury, bleeding, discharge, and swelling, MS/Extremity: Negative for injury and deformity, Skin: Negative for injury, rash, and discoloration, Neuro: Negative for headache, weakness, numbness, tingling, and seizure. Exam: 13:13 Constitutional: Overweight patient, no acute distress Head/Face: Normocephalic, rn atraumatic. ENT: dry MM Cardiovascular: Regular rate and rhythm. No pulse deficits. Respiratory: No increased work of breathing, no retractions or nasal flaring. Abdomen/GI: + RLQ tenderness, no rebound, no masses Skin: Warm, dry MS/ Extremity: Pulses equal, no cyanosis. Neuro: Awake and alert, GCS 15, oriented to person, place, time, and situation. Cranial nerves II-XII grossly intact. Motor strength 5/5 in all extremities. Sensory grossly intact. Vital Signs: 12:57 BP 124 / 67; Pulse 69; Resp 16; Pulse Ox 100% on R/A; vg1 12:58 Temp 97.9; Weight 96.62 kg; Height 4 ft. 11 in. (149.86 cm); Pain 8/10; vg1 14:09 BP 134 / 83; Pulse 68; Resp 18; Pulse Ox 100% ; vg1 14:50 BP 134 / 83; Pulse 67; Resp 16; Pulse Ox 100% on R/A; vg1 12:58 Body Mass Index 43.02 (96.62 kg, 149.86 cm) vg1 MDM: 12:46 Patient medically screened. rn 14:35 Differential diagnosis: diverticulitis, non-specific abd pain, Ureterolithiasis, rn urinary tract infection, ascites, enteritis. Data reviewed: vital signs, nurses notes, lab test result(s), radiologic studies, CT scan, and as a result, I will discharge patient. Counseling: I had a detailed discussion with the patient and/or guardian regarding: the historical points, exam findings, and any diagnostic results supporting the discharge/admit diagnosis, lab results, radiology results, the need for outpatient follow up, to return to the emergency department if symptoms worsen or persist or if there are any questions or concerns that arise at home. Special discussion: Based on the patient's Hx, exam, and Dx evaluation, there is no indication for emergent surgery or inpatient Tx. It is understood by the patient/guardian that if the Sx's persist or worsen they need to return immediately for re-evaluation. I discussed with the patient/guardian in detail that at this point there is no indication for admission to the hospital. It is understood, however, that if the symptoms persist or worsen the patient needs to return immediately for re-evaluation. Based on the history and exam findings, there is no indication for further emergent testing or inpatient evaluation. I discussed with the patient/guardian the need to see the land use planner for further evaluation of the symptoms. ED course: No acute findings in blood or CT abdomen, hemoglobin stable for her compared to last several visits. Will dc home with return precautions and she can f/u with her liver doctor. . 11/01 12:54 Order name: Basic Metabolic Panel; Complete Time: 14:17 rn 11/01 12:54 Order name: CBC with Diff; Complete Time: 13:58 rn 11/01 12:54 Order name: Hepatic Function; Complete Time: 14:17 rn 11/01 12:54 Order name: Lipase; Complete Time: 14:17 rn 11/01 12:54 Order name: AMMONIA; Complete Time: 13:58 rn 11/01 13:34 Order name: Urine Dipstick--Ancillary (enter results); Complete Time: 14:17 bd 11/01 12:54 Order name: IV Saline Lock; Complete Time: 13:26 rn 11/01 12:54 Order name: Labs collected and sent; Complete Time: 13:26 rn 11/01 12:54 Order name: CT Abd/Pelvis - Without Contrast; Complete Time: 13:41 rn 11/01 12:54 Order name: Urine Dipstick-Ancillary (obtain specimen); Complete Time: 13:32 rn Administered Medications: No medications were administered Disposition: 11/01/20 14:37 Discharged to Home. Impression: Lower abdominal pain, unspecified, Diarrhea, unspecified. - Condition is Stable. - Discharge Instructions: Abdominal Pain, Adult, Diarrhea, Adult. - Medication Reconciliation Form, Thank You Letter, Antibiotic Education, Prescription Opioid Use form. - Follow up: Private Physician; When: As needed; Reason: Recheck today's complaints, Re-evaluation by your physician. - Problem is new. - Symptoms have improved. Signatures: Dispatcher [employer] EDMS Beau Encarnacion MD MD rn Baxter, Heather, RN RN hb Garcia, Victoria, RN RN vg1 Corrections: (The following items were deleted from the chart) 14:51 14:37 11/01/2020 14:37 Discharged to Home. Impression: Lower abdominal pain, vg1 unspecified; Diarrhea, unspecified. Condition is Stable. Forms are Medication Reconciliation Form, Thank You Letter, Antibiotic Education, Prescription Opioid Use. Follow up: Private Physician; When: As needed; Reason: Recheck today's complaints, Re-evaluation by your physician. Problem is new. Symptoms have improved. rn
[2020-11-01 14:56] VITALS: O2SAT 100
[2020-11-01 14:57] VITALS: TEMP 97.9
[2020-11-01 14:59] VITALS: BP 134/83
== END 2020-11-01 14:51 | disposition home or self-care (01) ==
LOC: ER 12:30
DX: R19.7 Diarrhea, unspecified (principal); K74.60 Unspecified cirrhosis of liver; Z88.1 Allergy status to other antibiotic agents; Z88.8 Allergy status to other drugs, medicaments and biological substances; Z91.048 Other nonmedicinal substance allergy status
CPT/HCPCS: 36415; 74176; 80048; 80076; 81003; 82140; 83690; 85025; 99284

== ENCOUNTER 2020-11-17 21:33 | Emergency (ER) | payer OTHER ==
--- OUTSIDE RECORDS SUMMARY | 2020-11-17 21:39 | XMS REPORT | Continuity of Care Document ---
:1960 Author Organization [facility] t Address [address] [place] [address] Care Team Providers Name Role Phone Faustino Garcia MD. Primary Care Physician Mildred FRANKLIN F. Attending Clinician Jose FRANKLIN SLaurel Attending Clinician Curry Gutierrez DO Attending Clinician Chela FRANKLIN Attending Clinician Ting Pierson MD Attending Clinician Blayne Garcia MD Attending Clinician Gus Azevedo MD Attending Clinician Chris FRANKLIN Attending Clinician Davina FRANKLIN Attending Clinician Kortney Limon DO Attending Clinician Leslie Díaz MD Attending Clinician Brenda [facility] Attending Clinician Unavailable Meek Roper MD Attending Clinician Emerson Watts MD Attending Clinician Osorio OLMOS Attending Clinician Unavailable Mana FRANKLIN Attending Clinician Kush Johnson MD Attending Clinician Chelle FRANKLIN Attending Clinician Mikel Kaplan DO Attending Clinician Marie OLMOS Attending Clinician Unavailable Alex OLMOS Attending Clinician Unavailable Fermíniris MENSAH [place] Attending Clinician Hardik Tyson MD Attending Clinician Armida GUAJARDO Attending Clinician Unavailable Liz OLMOS Attending Clinician Unavailable Rickey Reddy MD Attending Clinician Michelle Rascon Attending Clinician Unavailable Harsh [facility] Attending Clinician Unavailable Rodolfo Soares MA Attending Clinician Unavailable Rodriguez Grubbs MD Attending Clinician Matthew Cleveland RN Attending Clinician Unavailable Stephanie GUAJARDO Attending Clinician Unavailable Holgate Attending Clinician Unavailable Elham DUBOSE Attending Clinician Unavailable Netta GUAJARDO Attending Clinician Unavailable Bin Bangura MD Attending Clinician Abiodun GUAJARDO Attending Clinician Unavailable Daija HERRON S Attending Clinician Abiodun GUAJARDO Attending Clinician Unavailable DARCY Attending Clinician Unavailable CHELA Admitting Clinician Unavailable MAGDA Admitting Clinician Unavailable CHELLE Admitting Clinician Unavailable MARYBETH Admitting Clinician Unavailable TING PIERSON Admitting Clinician Unavailable ROLANDO Admitting Clinician Unavailable DARCY Admitting Clinician Unavailable Payers Payer Name Policy Type Policy Effective Date Expiration Date Sour ce Number MEDICAREMEDICARE PART [id number] 2015 Gucci Todd AND 00:00:00 [facility] [id number] [place] [id number] 2015 Nikki taylor [id number] 00:00:00 [place] Problems Condition Condition Condition Status Onset Resolution Last Treating Co mments Source Name Details Category Date Date Treatment Clinician Date Acute Acute Disease Active 2019-08 [facility] cystitis cystitis 0-03 Method i without without 00:00: st hematuria hematuria 00 Hyperkalem Hyperkalem Disease Active 2020 [facility] [place] ia 0-03 Methodi 00:00: st 00 Lymphedema Lymphedema Disease Active 2020- [place] 9-02 Methodi 00:00: st 00 Tremor of Tremor of Disease Active Nikki ston unknown unknown 8-06 Methodi origin origin 00:00: st 00 Weakness Weakness Disease Active [place] generalize generalize 6-08 [facility] d d 00:00: st 00 Confusion Confusion Disease Active [facility]ki ston 3-03 [facility]i 00:00: st 00 Acute Acute Disease Active 2018-08 [facility] hepatic hepatic 1-05 [facility] encephalop encephalop 00:00: st athy athy 00 Slurred Slurred Disease Active [facility] speech speech 9 Methodi 00:00: st 00 CAM (acute CAM (acute Disease Active [facility] kidney kidney 05-08 Methodi injury) injury) 00:00: st 00 UTI UTI Disease Active [facility] (urinary (urinary 9 Method i tract tract 00:00: st infection) infection) 00 Altered Altered Disease Active [facility] mental mental 808 [facility] status, status, 00:00: st unspecifie unspecifie 00 d d Acute Acute Disease Active [facility] abdominal abdominal 4-03 Meth erasto pain pain 00:00: st 00 Weakness Weakness Disease Active 2019- [place] 08-20 [facility] 00:00: st 00 Chest pain Chest pain Disease Active 2019 [place] on 08-20 [facility] breathing breathing 00:00: st Non-intrac Non-intrac Disease Active [facility] table table 109 [facility] vomiting vomiting 00:00: st with with 00 nausea nausea Gastroesop Gastroesop Disease Active 2019 [facility] hageal hageal 1-09 Methodi reflux reflux 00:00: st disease disease 00 CAM (acute CAM (acute Disease Active [facility] kidney kidney 1 Methodi injury) injury) 00:00: st 00 Disorder Disorder Disease Active 2019- [place] of liver of liver 1-09 Method i 00:00: st 00 Liver Liver Disease Active 2017-08 Beauty cirrhosis cirrhosis 1-24 Meth erasto 00:00: st 00 Acute Acute Disease Active [facility] hepatic hepatic 2-24 [facility] encephalop encephalop 00:00: st athy athy 00 Hematochez Hematochez Disease Active H [place] ia ia 12-11 Methodi 00:00: st 00 Melena Melena Disease Active Overview: Socorro langley 12-11 Formattin Methodi 00:00: g of this note might be different from the original. Added automatic ally from request for surgery [id number] Bipolar Bipolar Disease Active [facility] disorder, disorder, 2-28 Meth erasto unspecifie unspecifie 00:00: st d d 00 Persistent Persistent Disease Active [place] depressive depressive 2-28 [facility] disorder disorder 00:00: st 00 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 09-12 Meth erasto of liver of liver 00:00: st 00 Hepatic Hepatic Disease Active 2015-08 [facility] encephalop encephalop 1-15 [facility] athy athy 00:00: st 00 S/P TIPS S/P TIPS Disease Active [place] (transjugu (transjugu 05-08 [facility] lar lar 00:00: st intrahepat intrahepat 00 ic ic portosyste portosyste jacqueline shunt) jacqueline shunt) Thrombocyt Thrombocyt Disease Active [facility] openia openia 05-04 Methodi 00:00: st 00 Cirrhosis Cirrhosis Disease Active Nikki ston of liver of liver 05-04 Method i not due to not due to 00:00: st alcohol alcohol 00 Malnutriti Malnutriti [facility] Method[facility] st 00 CAM (acute CAM (acute Disease Resolve 2020-08-13 2020-08-13 Beauty kidney kidney d 04-13 00:00:00 14:25:15 Method i injury) injury) 00:00: st 00 Allergies, Adverse Reactions, Alerts Allergy Allergy Status Severity Reaction(s) Onset Inactive Treating Comm ents Source Name Type Date Date Clinician Ceftriax Propensi Active Itching [place] one ty to 10-06 Methodi adverse 00:00: st reaction 00 s to drug Eggshell Propensi Active Diarrhea Egg yoke [place] Membrane ty to 10-08 [facility] adverse 00:00: st reaction 00 s to drug Prometha Propensi Active Other (See Severe Gucci chaudhry ty to Comments) 09-07 confusion Meth erasto [...] Not [facility] Reaction Available [facility] Iodine Adverse Active Info Not [facility] Reaction Available [facility] Family History Family Member Diagnosis Comments Start Date Stop Date Source Natural father No Known Problems Nikki taylor [facility] Natural mother No Known Problems Nikki taylor [facility] Social History Social Habit Start Date Stop Date Quantity Comments Source Exposure to Not sure Beauty SARS-CoV-2 (event) Method ist Cigarettes smoked 2020-10-23 2020-10-23 Beauty current (pack per 00:00:00 00:00:[address] day) - Reported Cigarette 2020-10-23 2020-10-23 Beauty pack-years 00:00:00 00:00:00 [facility] Tobacco use and 2020-10-23 2020-10-23 Never used Beauty exposure 00:00:00 00:00:00 [facility] Alcohol intake 2020-10-23 2020-10-23 Current Beauty 00:00:00 00:00:00 non-drinker of [facility] alcohol (finding) History of tobacco 1976-08-12 2018-09-07 Current smoker Gucci yang use 00:00:00 00:00:00 [facility] Tobacco Comment 2016-09-12 2016-09-12 smokes 5 Beauty 00:00:00 00:00:00 cigarettes per [facility] day Alcohol Comment 2016-05-02 2016-05-02 Former social [place] 00:00:00 00:00:00 alcohol use, quit Methodi st several years ago; denies history of heavy alcohol use Sex [birth year] Beauty 00:00:00 00:00:00 [facility] Smoking Status Start Date Stop Date Source Former smoker 2020-10-23 00:00:00 2020-10-23 00:00:00 Catracho Marquez Medications Ordered Filled Start Stop Current Ordering Indication Dosage Frequency Signature Comments Components Source Medication Medication Date Date Medication? Clinician (SIG) Name Name cetirizine Yes 10mg QD Take 10 mg [place] (ZyrTEC) 10 3-15 by mouth Meth erasto MG tablet 14:46: every st 31 morning. cyanocobala Yes 1000ug Q30D Inject [place] min 1,000 3-15 1,000 mcg Metho di mcg/mL 14:46: into the st injection 31 shoulder, thigh, or buttocks every 30 (thirty) days. riFAXimin 0 Yes 550mg Q.5D Take 550 Nikki ston (XIFAXAN) 3-15 mg by Methodi 550 mg 14:46: mouth 2 st tablet 31 (two) times a day. ubrogepant 0 Yes 100mg Q.5D Take 100 [place] (Ubrelvy) 3-15 mg by Methodi 100 mg 14:46: mouth 2 st tablet 31 (two) times a day as needed (headache) . clonAZEPAM 0 Yes .5mg Q24H Take 0.5 Nik[facility] ston (KlonoPIN) 3-15 mg by Methodi 0.5 MG 14:46: mouth st tablet 31 daily as needed for anxiety. topiramate 0 Yes 50mg Q.5D Take 50 mg [place] (TOPAMAX) 3-15 by mouth 2 Meth erasto 50 MG 14:46: (two) st tablet 31 times a day. benztropine 0 Yes .5mg Q.5D Take 0.5 [place] (COGENTIN) 3-15 mg by Methodi 0.5 MG 14:46: mouth 2 st tablet 31 (two) times a day. thiamine 2020-0 Yes 100mg QD Take 100 [place] mononitrate 3-15 mg by Method[facility] , vit B1, 14:46: mouth st (B-1) 100 31 daily. mg tablet primidone 0 Yes 25mg Q.5D Take 25 mg [place] (MYSOLINE) 3-15 by mouth 2 Met hodi 50 MG 14:46: (two) st tablet 31 times a day. zinc 2020- Yes 220mg QD Take 1 [place] sulfate 3-15 04-14 capsule Methodi (ZINCATE) 00:00: 23:59 ([address] 220 (50) mg 00 :00 total) by capsule mouth daily for 30 days. methylPREDN 2020- No follow Nikki ston ISolone 10-09- package Methodi (MEDROL 00:00: 23:[address] DOSEPAK) 4 00 :00 mg tablet ibuprofen 2020- No 400mg Q8H Take 1 [place] (ADVIL) 400 10-09-05 tablet Metho di MG tablet 00:00: 23:59 ([address] 00 :00 total) by mouth every 8 (eight) hours as needed for moderate pain, fever or headaches for up to 5 days. zinc 2020- No 220mg QD Take 1 [place] sulfate 2-11 -15 capsule Methodi (ZINCATE) 00:00: 00:00 ([address] 220 (50) mg 00 :00 total) by capsule mouth daily for 30 days. eszopiclone 2020- No 1mg QD Take 1 mg [place] (LUNESTA) 1 09-21-10 by mouth Met hodi MG tablet 14:27: 00:[address] 44 :00 Take immediatel y before bedtime topiramate 2020- No 50mg Q.5D Take 50 mg [place] (TOPAMAX) 09-02 by mouth 2 Met hodi 50 MG 09:52: 00:00 (two) st tablet 36 :00 times a day. topiramate 2020- No 50mg QD Take 1 [place] (TOPAMAX) 09-02-09 tablet (50 Met hodi 50 MG 00:00: 00:00 mg total) st tablet 00 :00 by mouth daily. levoFLOXaci 2020- No 250mg QD Take 1 [place] n 09-02 tablet [facility] (Levaquin) 00:00: 23:59 ([address] 250 MG 00 :00 total) by tablet mouth daily for 8 days. propranolol 2020- No 10mg Q.5D Take 10 mg Hayden [...] st packet 57 :00 times a day. allopurinoL 2020- No 200mg QD Take 200 [place] (ZYLOPRIM) 08-13-02 mg by Methodi 100 MG 14:42: 00:[address] tablet 57 :00 daily. spironolact 2020- No 100mg QD Take 100 [place] one 08-13-02 mg by [facility] (ALDACTONE) 14:39: 00:[address] 100 MG 40 :00 daily. tablet potassium 20meq QD Take 20 Nikki ston chloride 08-13-02 mEq by [facility] (K-DUR) 20 14:39: 00:[address] MEQ CR 37 :00 every tablet morning. indomethaci 2020- No 50mg Q.5D Take 50 mg [place] n (INDOCIN) 08-13 by mouth 2 M ethodi 50 MG 14:39: 00:00 (two) st capsule 25 :00 times a day with meals. benztropine 2020- No .5mg Q.5D Take 0.5 [place] (COGENTIN) 08-13 01-02 mg by Methodi 0.5 MG 14:39: 00:[address] tablet 06 :00 (two) times a day. gabapentin 2020- No 600mg QD Take 600 [place] (NEURONTIN) 08-13 01-02 mg by Method i 600 mg 14:38: 00:[address] tablet 57 :00 daily. escitalopra 2020- No 15mg QD Take 15 mg [place] m (LEXAPRO) 08-13 by mouth Met hodi 10 MG 14:36: 00:[address] tablet 57 :00 primidone 2020- No 25mg Q.5D Take 25 mg [place] (MYSOLINE) 08-13 by mouth 2 Me [facility] 50 MG 14:36: 00:00 (two) st tablet 57 :00 times a day. brexpiprazo 2020- No 2mg QD Take 2 mg [place] le 08-13 by mouth Methodi (Rexulti) 2 14:36: 00:[address] mg tablet 57 :00 tablet QUEtiapine 2020- No 50mg QD Take 50 mg [place] (SEROquel) 08-13 by mouth Meth erasto 50 MG 14:36: 00:[address] tablet 57 :00 escitalopra Yes 10mg QD Take 1 [place] (LEXAPRO) 08-13 tablet (10 Me [facility] 10 MG 00:00: mg total) st tablet 00 by mouth nightly. furosemide 2029- No 20mg QD Take 1 [place] (LASIX) 20 08-1309 tablet (20 Me [facility] mg tablet 00:00: 23:59 mg total) st 00 :00 by mouth daily for 30 days. primidone 2020- No 25mg QD Take 0.5 [facility] (MYSOLINE) 08-13 tablets Metho di 50 MG 00:00: 00:00 ([address] tablet 00 :00 total) by mouth nightly. May cut tablet in 1/2 half brexpiprazo 2020- No 2mg QD Take 1 Nikki ston le 08-13 tablet (2 [facility]i (Rexulti) 2 00:00: 23:59 mg total) st mg tablet 00 :00 by mouth tablet daily for 30 days. QUEtiapine 2020- No 50mg QD Take 1 [place] (SEROquel) 08-13 tablet (50 Me [facility] 50 MG 00:00: 23:59 mg total) st tablet 00 :00 by mouth nightly for 30 days. allopurinoL No 100mg QD Take 1 [place] (ZYLOPRIM) 1-02 tablet Method i 100 MG 00:00: 00:00 ([address] tablet 00 :00 total) by mouth daily for 30 days. gabapentin 2019-08- No 300mg QD Take 300 [place] (NEURONTIN) 0-23 10-23 mg by Method i 300 mg 12:53: 00:[address] capsule 04 :00 every morning. lactulose 2019-08 No 20g Q.25D Take 20 g [place] (CEPHULAC) 0-23 10-23 by mouth 4 Me [facility] 20 gram 12:53: 00:00 (four) st packet 04 :00 times a day. Take 1 packet by mouth 4 times a day spironolact 2019-08 No 50mg QD Take 50 mg [place] one 0-23 10-23 by mouth [facility] (ALDACTONE) 12:53: 00:[address] 50 MG 04 :00 morning. tablet gabapentin 2019-08 No 600mg QD Take 600 [place] (NEURONTIN) 0-23 10-23 mg by Method i 300 mg 12:53: 00:[address] capsule 04 :00 nightly. furosemide 2019-08 No 40mg QD Take 40 mg [place] (LASIX) 40 0-23 10-23 by mouth Meth erasto mg tablet 10:18: 00:[address] 21 :00 magnesium 2019-08 No 400mg QD Take 400 [place] oxide 0-23 10-23 mg by [facility] (MAG-OX) 10:18: 00:[address] 400 mg 21 :00 daily. (241.3 mg magnesium) tablet furosemide 2019-08 40mg QD Take 1 [place] (LASIX) 40 0-23 - tablet (40 Me [facility] mg tablet 00:00: 00:00 mg total) st 00 :00 by mouth daily for 30 days. magnesium 2019-08- No 400mg QD Take 1 [place] oxide 0-23 11-26 tablet [facility] (MAG-OX) 00:00: 00:00 ([address] 400 mg 00 :00 total) by (241.3 mg mouth magnesium) daily for tablet 30 days. potassium 2019-08- No 20meq QD Take 20 Nikki ston chloride 0-20 10-20 mEq by [facility] (K-DUR) 10 14:24: 00:[address] MEQ CR 01 :00 daily. tablet Take 2 tablets by mouth every morning QUEtiapine 2019-08- No 250mg QD Take 250 [place] (SEROquel) 0-20 10-20 mg by Methodi 200 MG 12:11: 00:[address] tablet 03 :00 nightly. carbidopa-l 2019-08- No 1{tbl} QD Take 1 [place] evodopa 0-20 10-20 tablet by Method i (SINEMET) 12:04: 00:[address] 25-100 mg 06 :00 nightly. per tablet spironolact 2029- No 50mg QD Take 1 Nikki ston one 04-22 tablet (50 [facility] (ALDACTONE) 00:00: 23:59 mg total) st 50 MG 00 :00 by mouth tablet daily for 30 days. furosemide 2019- No 40mg Q.5D Take 1 [place] (LASIX) 40 04-22 tablet (40 Me [facility] mg tablet 00:00: 00:00 mg total) st 00 :00 by mouth 2 (two) times a day for 30 days. traMADol 2019- No 50mg Q.5D Take 50 mg [place] (ULTRAM) 50 04-21 by mouth 2 M ethodi mg tablet 20:06: 00:00 (two) st 07 :00 times a day as needed for moderate pain. lactulose 2029- No 20g Q.25D Take 1 [place] (Kristalose 04-21 packet (20 M ethodi ) 20 gram 00:00: 23:59 g total) st packet 00 :00 by mouth 4 (four) times a day for 30 days. gabapentin 2029- No 300mg Q.52187116 Take 1 [place] (NEURONTIN) 04-21 [id number] capsule Methodi 300 mg 00:00: 23:59 3D ([address] capsule 00 :00 total) by mouth 3 (three) times a day for 30 days. potassium 2020-0 2020- No 20meq QD Take 1 [place] chloride 9-10 10-20 tablet (20 Meth erasto (K-DUR) 20 00:00: 00:00 mEq total) st MEQ CR 00 :00 by mouth tablet daily. clonAZEPAM 2019- 2020- No .5mg Q.5D Take 1 [place] (KlonoPIN) 9-10 10-10 tablet Method i 0.5 MG 00:00: 23:59 (0.[address] tablet 00 :00 total) by mouth 2 (two) times a day for 30 days. brexpiprazo 2019- 2020- No 2mg QD Take 2 mg [place] le 03-19 by mouth [facility]i (REXULTI) 2 11:46: 00:[address] mg tablet 54 :00 tablet clonAZEPAM 2019- 2020- No .5mg Q.5D Take 1 [place] (KlonoPIN) 03-19 tablet Method i 0.5 MG 00:00: 00:00 (0.[address] tablet 00 :00 total) by mouth 2 (two) times a day for 30 days. clonAZEPAM 2019-0 2020- No .5mg Q.5D Take 1 [place] [...] 600 mg tablet in half thiamine 2019- 2020- No 100mg QD Take 1 [place] 100 MG 02-20 tablet Methodi tablet 00:00: 23:59 ([address] 00 :00 total) by mouth daily for 30 days. sodium 2019- 2020- No 1300mg Q.5D Take 2 [place] bicarbonate 02-20 07-26 tablets Meth erasto 650 mg 00:00: 23:59 (1,[address] tablet 00 :00 total) by mouth 2 (two) times a day for 14 days. gabapentin 2020-0 2020- No Hypokalemia 300mg Q.5D Take 0.5 [place] (NEURONTIN) 7-12 07-12 tablets Meth erasto 600 mg 00:00: 00:00 ([address] tablet 00 :00 total) by mouth 2 (two) times a day for 30 days. With Kidney disease, 1/2 dose is recommende d, december cut 600 mg tablet in half pantoprazol 2019- No 40mg QD Take 40 mg [place] e 6-15 06-15 by mouth [facility]i (PROTONIX) 11:47: 00:[address] 40 MG EC 55 :00 morning. tablet QUEtiapine 2019- No 200mg QD Take 200 [place] (SEROquel) 6-15 06-15 mg by Methodi 200 MG 11:47: 00:[address] tablet 55 :00 nightly. methylnaltr 2019- No 150mg Q24H Take 150 [place] exone [...] 55 :00 (two) times a day. senna 2020- No 1{tbl} QD Take 1 [place] (SENOKOT) 6-15 06-15 tablet by Meth erasto 8.6 mg 11:47: 00:[address] tablet 55 :00 every morning. spironolact 2019-2019- No 100mg QD Take 100 [place] one 6-15 06-15 mg by [facility] (ALDACTONE) 11:47: 00:[address] 100 MG 55 :00 every tablet morning. ondansetron 2019- 2020- No 4mg Q4H Take 4 mg [place] ODT 6-15 06-15 by mouth [facility] (ZOFRAN-ODT 11:47: 00:[address] ) 4 MG 55 :00 (four) disintegrat hours as ing tablet needed for nausea or vomiting. topiramate 2020- No 50mg QD Take 50 mg [place] (TOPAMAX) 01-24 by mouth Metho di 25 MG 11:47: 00:[address] tablet 55 :00 magnesium 2019- No 400mg QD Take 400 [place] oxide 01-24 mg by [facility] (MAG-OX) 11:47: 00:[address] 400 mg 55 :00 daily. (241.3 mg magnesium) tablet SUMAtriptan Yes Hypokalemia 50mg Q24H Take 1 Beauty (Imitrex) 01-24 tablet (50 Meth erasto 50 MG 00:00: mg total) st tablet 00 by mouth daily as needed for migraine for up to 30 doses. May repeat in 2 hours if unresolved . Max dose 200 mg/day pantoprazol 2020- No Hypokalemia 40mg QD Take 1 Beauty e 01-24 tablet (40 [facility] (PROTONIX) 00:00: 23:59 mg total) s t 40 MG EC 00 :00 by mouth tablet every morning. zinc 2020- No Hypokalemia 220mg Q.5D Take 1 [place] sulfate 01-24 capsule [facility] (ZINCATE) 00:00: 00:00 ([address] 220 (50) mg 00 :00 total) by capsule mouth 2 (two) times a day. methylnaltr 2020- No Hypokalemia 150mg Q24H Take 150 Beauty exone 01-24 mg by [facility] (Relistor) 00:00: 00:[address] 150 mg 00 :00 daily as tablet needed (constipat ion). Do not take this medication if you are no longer actively taking Tramadol. ondansetron 2020- No Hypokalemia 4mg Q6H Take 1 Beauty ODT 01-24 tablet (4 [facility] (ZOFRAN-ODT 00:00: 00:00 mg total) st ) 4 MG 00 :00 by mouth disintegrat every 6 ing tablet (six) hours as needed for nausea or vomiting. riFAXimin 2020- No Hypokalemia 550mg Q.5D Take 1 [facility] (XIFAXAN) 01-24 tablet Methodi 550 mg 00:00: 00:00 ([address] tablet 00 :00 total) by mouth 2 (two) times a day. magnesium 2020-0 2020- No Hypokalemia 400mg QD Take 1 Beauty oxide 01-24-20 tablet [facility] (MAG-OX) 00:00: 00:00 ([address] 400 mg 00 :00 total) by (241.3 mg mouth magnesium) daily. tablet senna 2019-0 2020- No Hypokalemia 1{tbl} QD Take 1 [facility] (SENOKOT) 01-2420 tablet by Meth erasto 8.6 mg 00:00: 00:[address] tablet 00 :00 every morning. furosemide 2019-0 2020- No Hypokalemia 40mg QD Take 1 [facility] (LASIX) 40 01-24 tablet (40 [facility] mg tablet 00:00: 00:00 mg total) st 00 :00 by mouth every morning. lactulose 2019-0 2020- No Hypokalemia 20g Q.78322301 Take 1 [facility] (Kristalose 01-24 [id number] packet (20 Methodi ) 20 gram 00:00: 00:00 3D g total) st packet 00 :00 by mouth 3 (three) times a day. spironolact 2019-0 2020- No Hypokalemia 100mg QD Take 1 [facility] one 01-24 tablet [facility] (ALDACTONE) 00:00: 00:00 ([address] 100 MG 00 :00 total) by tablet mouth every morning. famotidine 2019-0 2020- No Hypokalemia 20mg Take 1 Beauty (Pepcid) 20 01-24- tablet (20 M ethodi MG tablet 00:00: 00:00 mg total) st 00 :00 by mouth daily. gabapentin 2020-0 2020- No Hypokalemia 600mg Q.5D Take 1 [facility] (NEURONTIN) 01-24- tablet Metho di 600 mg 00:00: 00:00 ([address] tablet 00 :00 total) by mouth 2 (two) times a day. potassium 2020-0 2020- No Hepatic 40meq QD Take 2 [place] chloride 01-24- encephalopa tablets [facility] (K-DUR) 20 00:00: 00:00 thy (HCC) ([address] MEQ CR 00 :00 total) by tablet mouth every morning. topiramate 2019- No Hypokalemia 50mg QD Take 2 [place] (TOPAMAX) 01-24- tablets Method i 25 MG 00:00: 23:59 ([address] tablet 00 :00 total) by mouth nightly for 14 days. QUEtiapine No Hypokalemia 200mg QD Take 1 [place] (SEROquel) 01-24 tablet Method i 200 MG 00:00: 23:59 ([address] tablet 00 :00 total) by mouth nightly for 14 days. escitalopra No Hypokalemia 10mg QD Take 1 [place] [...] times a day. 9am and 2pm gabapentin 2019- No 600mg QD Take 600 [place] (NEURONTIN) 6- 06-10 mg by Method i 600 mg 12:28: 00:[address] tablet 10 :00 nightly. gabapentin 2019- No 600mg Q.5D Take 1 [facility] st[facility] (NEURONTIN) -01-24 tablet Metho di 600 mg 00:00: 00:00 ([address] tablet 00 :00 total) by mouth 2 (two) times a day. eszopiclone 2019- No 1mg QD Take 1 mg [place] (LUNESTA) 1 01-10 by mouth Met hodi MG tablet 10:57: 00:[address] 43 :00 Take immediatel y before bedtime eszopiclone 2019-2019- No 1mg QD Take 1 [facility] (LUNESTA) 1 01-10 tablet (1 Me [facility] MG tablet 00:00: 23:59 mg total) st 00 :00 by mouth nightly for 14 days. Take immediatel y before bedtime gabapentin- 2019- 2020- No 1{dose} QD 1 Dose [facility] 12-23 05-14 nightly. Met hodi enthoL 09:45: 00:00 st (Active-Pac 22 :00 ) 300-4-1 mg-%-% kit,gel & capsule diphenhydrA 2019- Take 3 [facility] ston MINE 12-21-12 tablets [facility] (Benadryl 00:00: 00:[address] Allergy) 25 00 :00 before, mg tablet and take 3 tablets the day of famotidine 20mg Take 1 [place] (Pepcid) 20 12-21-15 tablet (20 M ethodi MG tablet 00:00: 00:00 mg total) st 00 :00 by mouth daily. predniSONE 2019- No Take 2 [place] (DELTASONE) 12-21-15 tablets Meth erasto 20 mg 00:00: 00:[address] tablet 00 :00 before and 2 tablets the morning of test escitalopra 2018-08- No TAKE 1 [facility] ston m (LEXAPRO) 09-27 TABLET BY Me thodi 10 MG 00:00: 00:[address] tablet 00 :00 EVERY DAY furosemide 2018-08 No Awaiting 40mg QD Take 1 [facility] (LASIX) 40 09-21 liver tablet (40 M ethodi mg tablet 00:00: 00:00 transplant mg total) st 00 :00 by mouth every morning. zinc 2018-08 Awaiting 220mg Q.5D Take 1 [place] sulfate 09-21 liver capsule [facility] (ZINCATE) 00:00: 00:00 transplant ([address] 220 (50) mg 00 :00 total) by capsule mouth 2 (two) times a day. potassium 2018-08- Hypokalemia 40meq QD Take 2 Beauty chloride 08-23-15 tablets [facility] (K-DUR) 20 00:00: 00:00 ([address] MEQ CR 00 :00 total) by tablet mouth every morning. lactulose 2019- No Hepatic 20g Q.[id number] Take 1 [facility] (KRISTALOSE 04-20-15 encephalopa [id number] packet (2 0 Methodi ) 20 gram 00:00: 00:00 thy (HCC) 3D g total) st packet 00 :00 by mouth 3 (three) times a day. SUMAtriptan 2020- No 50mg Q24H Take 1 [facility] st[facility] (IMITREX) 02-1315 tablet (50 Met hodi 50 MG 00:00: 00:00 mg total) st tablet 00 :00 by mouth daily as needed for migraine for up to 1 dose. May repeat in 2 hours if unresolved . Max dose 200 mg/day Allopurinol Allopurinol Yes Fernando 2 tablets [facility] Immunizations Ordered Immunization Filled Immunization Date Status Commen ts Source Name Name Influenza (IM) 2018-04-21 Completed [facility] Preservative Free 00:00:[address] Pneumococcal 2016-05-08 Completed [facility] Conjugate 13-Valent 00:00:00 Metho dist FLUCELVAX QUAD PF 2016-05-08 Completed Beauty 00:00:00 [facility] Vital Signs Vital Name Observation Time Observation Value Comments Source Systolic blood 2020-10-24 08:42:15 111 mm[Hg] Socorro n [facility] pressure Diastolic blood 2020-10-24 08:42:15 59 mm[Hg] Mariel on [facility] pressure Heart rate 2020-10-24 08:42:15 81 /min [facility] Marquez Body temperature 2020-10-24 08:42:15 36.89 Georgette Alberta Marquez Respiratory rate 2020-10-24 08:42:15 18 /min Alberta Marquez Oxygen saturation in 2020-10-24 08:42:15 99 /min [facility] Marquez Arterial blood by Pulse oximetry Body weight 2020-10-24 06:00:00 97.75 kg [facility] Marquez BMI 2020-10-24 06:00:00 43.53 kg/m2 [facility] Marquez Body height 2020-10-23 22:30:00 149.9 cm [facility] Marquez Procedures Procedure Date / Time Performing Clinician Source Performed XR ABDOMEN ACUTE INC CHEST 2020-11-02 17:51:00 Agustín Levy 1V HC COMPLETE BLD COUNT 2020-11-02 16:55:00 Calos Garcia W/AUTO DIFF COMPREHENSIVE METABOLIC 2020-11-02 16:55:00 Calos Garcia PANEL PROTHROMBIN TIME WITH INR 2020-11-02 16:55:00 Calos Garcia ESTIMATED GFR 2020-11-02 16:55:00 Calos Garcia [facility] COVID-19 QUALITATIVE PCR 2020-11-02 16:05:00 Calos Garcia NM BRAIN SPECT W I 123 2020-10-26 14:02:00 Agustín Levy DATSCAN HC COMPLETE BLD COUNT 2020-10-24 05:15:00 Heriberto York on [facility] W/AUTO DIFF BASIC METABOLIC PANEL 2020-10-24 05:15:00 Heriberto York on [facility] HEPATIC FUNCTION PANEL 2020-10-24 05:15:00 Heriberto York [facility] MAGNESIUM LEVEL 2020-10-24 05:15:00 Heriberto York [facility] PHOSPHORUS LEVEL 2020-10-24 05:15:00 Heriberto York [facility] PROTHROMBIN TIME WITH INR 2020-10-24 05:15:00 Heriberto York HEMOGLOBIN A1C 2020-10-24 05:15:00 Heriberto York [facility] THYROID STIMULATING 2020-10-24 05:15:00 Heriberto York HORMONE T4 2020-10-24 05:15:00 Heriberto York [facility] VITAMIN D 25 HYDROXY LEVEL 2020-10-24 05:15:00 Heriberto York ZINC LEVEL, SERUM 2020-10-24 05:15:00 Heriberto York [facility]ist ALPHA FETOPROTEIN 2020-10-24 05:15:00 Heriberto York [facility] ESTIMATED GFR 2020-10-24 05:15:00 Heriberto York [facility] URINE DRUGS OF ABUSE 2020-10-24 05:00:00 Heriberto York [facility] SCREEN LACTIC ACID LEVEL, SEPSIS 2020-10-24 01:20:00 Heriberto York - NOW AND REPEAT 2X EVERY 3 HOURS LACTIC ACID LEVEL, SEPSIS 2020-10-23 21:25:00 YorkHeriebrto taylor - NOW AND REPEAT 2X EVERY 3 HOURS XR CHEST 1 VW PORTABLE 2020-10-23 19:08:00 Rehrer, Freedom Marquez BLOOD CULTURE, AEROBIC & 2020-10-23 18:31:00 Rehrer, Freedom Shermanvidhya Marquez ANAEROBIC RESPIRATORY PATHOGEN PANEL 2020-10-23 18:31:00 Rehrer, Freedom Sherman vidhya Marquez WITH COVID-19 COMPREHENSIVE METABOLIC 2020-10-23 18:31:00 Rehrer, Freedom Shermanvidhya Marquez PANEL PHOSPHORUS LEVEL 2020-10-23 18:31:00 Rehrer, Freedom Shermanvidhya Marquez MAGNESIUM LEVEL 2020-10-23 18:31:00 Rehrer, Freedomindia Shermanvidhya Marquez LACTIC ACID LEVEL, SEPSIS 2020-10-23 18:31:00 YorkHeriberto silverman - NOW AND REPEAT 2X EVERY 3 HOURS LIPASE LEVEL 2020-10-23 18:31:00 Rehrer, Freedomindia Shermanvidhya Marquez ESTIMATED GFR 2020-10-23 18:31:00 Rehrer, Freedom Zapien [facility] Marquez HC COMPLETE BLD COUNT 2020-10-23 18:20:00 Rehrer, Freedom yang [facility] W/AUTO DIFF PROTHROMBIN TIME WITH INR 2020-10-23 18:20:00 Rehrer, Freedom Roman Marquez PARTIAL THROMBOPLASTIN 2020-10-23 18:20:00 Rehrer, Freedom Marquez TIME (PTT) AMMONIA LEVEL 2020-10-23 18:20:00 Rehrer, Freedom Zapien [facility] Marquez HC COMPLETE BLD COUNT 2020-10-09 18:05:00 Fabian Azevedo W/AUTO DIFF COMPREHENSIVE METABOLIC 2020-10-09 18:05:00 Fabian Azevedo PANEL LACTIC ACID, I-STAT 2020-10-09 18:05:00 Fabian Azevedo [facility] AMMONIA LEVEL 2020-10-09 18:05:00 Azevedo, Raymundoalice Hayden [facility] ESTIMATED GFR 2020-10-09 18:05:00 Azevedo, RaymundoGus Hayden [facility] URINALYSIS 2020-10-09 17:32:00 Claude AzevedoRaymundoGus Hayden [facility] ECG 12-LEAD 2020-10-09 17:18:11 Roberto CarlosClaudeRaymundoalice Hayden [facility] HC COMPLETE BLD COUNT 2020-09-21 04:28:00 Heriberto York on [facility] W/AUTO DIFF BASIC METABOLIC PANEL 2020-09-21 04:28:00 Heriberto York on [facility] HEPATIC FUNCTION PANEL 2020-09-21 04:28:00 Heriberto York [facility] MAGNESIUM LEVEL 2020-09-21 04:28:00 Heriberto York [facility] PHOSPHORUS LEVEL 2020-09-21 04:28:00 Heriberto York thodist PROTHROMBIN TIME WITH INR 2020-09-21 04:28:00 Heriberto York [facility] MISCELLANEOUS REFERRAL 2020-09-21 04:28:00 Annette Tovar [facility] TEST VITAMIN B12 LEVEL 2020-09-21 04:28:00 Heriberto York M ethodist FOLATE LEVEL 2020-09-21 04:28:00 Heriberto York [facility] ESTIMATED GFR 2020-09-21 04:28:00 Heriberto York [facility] COVID-19 QUALITATIVE PCR 2020-09-20 14:51:00 Robby Perez [facility] HC COMPLETE BLD COUNT 2020-09-20 06:08:00 Heriberto York on [facility] W/AUTO DIFF BASIC METABOLIC PANEL 2020-09-20 06:08:00 Heriberto York on [facility] HEPATIC FUNCTION PANEL 2020-09-20 06:08:00 Heriberto York [facility] MAGNESIUM LEVEL 2020-09-20 06:08:00 Heriberto York [facility] PHOSPHORUS LEVEL 2020-09-20 06:08:00 Heriberto York thodist PROTHROMBIN TIME WITH INR 2020-09-20 06:08:00 Heriberto York HEMOGLOBIN A1C 2020-09-20 06:08:00 Heriberto York [facility] THYROID STIMULATING 2020-09-20 06:08:00 Heriberto York HORMONE T4 2020-09-20 06:08:00 Heriberto York [facility] VITAMIN D 25 HYDROXY LEVEL 2020-09-20 06:08:00 Heriberto York ZINC LEVEL, SERUM 2020-09-20 06:08:00 Heriberto York Rodolfo ethodist ALPHA FETOPROTEIN 2020-09-20 06:08:00 Heriberto York Rodolfo ethodist ESTIMATED GFR 2020-09-20 06:08:00 Heriberto York [facility] CT CERVICAL SPINE WO 2020-09-20 00:50:[address] PELVIS WO CONTRAST 2020-09-20 00:50:[address] HEAD WO CONTRAST 2020-09-20 00:50:07 Bonny Rod OR CRITICAL CARE, E/M 2020-09-19 22:05:41 Bonny Rod 30-74 MINUTES URINE CULTURE 2020-09-19 22:00:00 Bonny Rod on [facility] URINALYSIS SCREEN AND 2020-09-19 22:00:00 Bonny Rod MICROSCOPY, WITH REFLEX TO CULTURE URINE DRUGS OF ABUSE 2020-09-19 22:00:00 Bonny Rod SCREEN MAGNESIUM LEVEL 2020-09-19 22:00:00 Bonny Rod on [facility] TROPONIN 2020-09-19 22:00:00 Bonny Rod on [facility] XR KNEE 3 VW LEFT 2020-09-19 20:06:29 RodBonny flores [facility] XR KNEE 3 VW RIGHT 2020-09-19 20:06:09 Bonny Rod [facility] XR SHOULDER 2+ VW RIGHT 2020-09-19 20:05:46 Bonny Rod HC COMPLETE BLD COUNT 2020-09-19 20:05:00 Bonny Rod W/AUTO DIFF PROTHROMBIN TIME WITH INR 2020-09-19 20:05:00 Bonny Rod PARTIAL THROMBOPLASTIN 2020-09-19 20:05:00 Bonny Rod TIME (PTT) COMPREHENSIVE METABOLIC 2020-09-19 20:05:00 Bonny Rod PANEL TROPONIN 2020-09-19 20:05:00 Bonny Rod on [facility] B NATRIURETIC PEPTIDE 2020-09-19 20:05:00 Bonny Rod AMMONIA LEVEL 2020-09-19 20:05:00 Bonny Rod on [facility] ALCOHOL LEVEL, BLOOD 2020-09-19 20:05:00 Bonny Rod ESTIMATED GFR 2020-09-19 20:05:00 Bonny Rod on [facility] CBC WITH PLATELET AND 2020-09-02 05:32:00 Pierce Garcia DIFFERENTIAL Blayne BASIC METABOLIC PANEL 2020-09-02 05:32:00 Pierce Garcia HEPATIC FUNCTION PANEL 2020-09-02 05:32:00 Pierce Garcia [facility] [place]ayne MAGNESIUM LEVEL 2020-09-02 05:32:00 Pierce Garcia Meth odist Bl[place]ne PHOSPHORUS LEVEL 2020-09-02 05:32:00 Pierce Garcia hodreema Cisneros PROTHROMBIN TIME WITH INR 2020-09-02 05:32:00 Pierce Garciaist Blayne MISCELLANEOUS REFERRAL 2020-09-02 05:32:00 Fauria, Annette Marquez TEST ESTIMATED GFR 2020-09-02 05:32:00 Dinakar, Pierce Cisneros MANUAL DIFFERENTIAL 2020-09-02 05:32:00 Dinakar, Pierce Cisneros HC COMPLETE BLD COUNT 2020-09-01 04:46:00 Dinakar, Pierce Marquez W/AUTO DIFF Blayne BASIC METABOLIC PANEL 2020-09-01 04:46:00 Dinakar, Pierce Cisneros HEPATIC FUNCTION PANEL 2020-09-01 04:46:00 Dinakar, Pierce Floyd on Alma Cisnreos MAGNESIUM LEVEL 2020-09-01 04:46:00 Dinakar, Pierce Cisneros PHOSPHORUS LEVEL 2020-09-01 04:46:00 Dinakar, Pierce Hayden Met dina Cisneros PROTHROMBIN TIME WITH INR 2020-09-01 04:46:00 Dinakar, Pierce Cisneros HEMOGLOBIN A1C 2020-09-01 04:46:00 Dinakar, Pierce Cisneros ESTIMATED GFR 2020-09-01 04:46:00 Dinakar, Pierce Cisneros GGT 2020-09-01 04:46:00 Dinakar, Pierce Cisneros COVID-19 QUALITATIVE PCR 2020-09-01 00:31:00 Dinakar, Pierce Cisneros URINALYSIS, AUTOMATED WITH 2020-08-31 23:50:00 Dinakar, Pierce Marquez MICROSCOPY Blayne BLOOD CULTURE, AEROBIC & 2020-08-31 23:36:00 Dinakar, Pierce Marquez ANAEROBIC Blayne PREALBUMIN LEVEL 2020-08-31 23:36:00 Dinakar, Pierce Hayden Met dina Cisneros BLOOD CULTURE, AEROBIC & 2020-08-31 23:20:00 Dinakar, Pierce Marquez ANAEROBIC Blayne ALCOHOL LEVEL, BLOOD 2020-08-31 16:22:00 Romero Limon LACTIC ACID, I-STAT 2020-08-31 16:22:00 Romero Limon URINE DRUGS OF ABUSE 2020-08-31 16:20:[address] HEAD WO CONTRAST 2020-08-31 15:50:11 Romero Limon XR PELVIS 1 OR 2 VW 2020-08-31 15:30:00 Romero Limon XR CHEST 1 VW PORTABLE 2020-08-31 15:25:00 Romero Limon on [facility] URINALYSIS 2020-08-31 15:14:00 Romero Limon Meth odist AMMONIA LEVEL 2020-08-31 14:42:00 Romero Limon Meth odist HC COMPLETE BLD COUNT 2020-08-31 14:22:00 Romero Limon n [facility] W/AUTO DIFF COMPREHENSIVE METABOLIC 2020-08-31 14:22:00 Romero Limon [facility] PANEL LACTIC ACID, I-STAT 2020-08-31 14:22:00 Romero Limon ESTIMATED GFR 2020-08-31 14:22:00 Romero Limon Meth odist ECG 12-LEAD 2020-08-31 14:15:55 Romero Limon Meth odreema [id number] TOTAL 2020-08-13 05:30:00 Heriberto York on [facility] HC COMPLETE BLD COUNT 2020-08-13 05:30:00 Heriberto York on [facility] W/AUTO DIFF COMPREHENSIVE METABOLIC 2020-08-13 05:30:00 Heriberto York [facility] PANEL MAGNESIUM LEVEL 2020-08-13 05:30:00 Heriberto York hodist PHOSPHORUS LEVEL 2020-08-13 05:30:00 Heriberto York [facility] PROTHROMBIN TIME WITH INR 2020-08-13 05:30:00 Heriberto York C-REACTIVE PROTEIN 2020-08-13 05:30:00 Heriberto York LDH 2020-08-13 05:30:00 Heriberto York [facility] ESTIMATED GFR 2020-08-13 05:30:00 Heriberto York [facility] URINE CULTURE 2020-08-12 22:00:00 Tay Mariscal [facility] URINALYSIS SCREEN AND 2020-08-12 22:00:00 Tay Mariscal on [facility] MICROSCOPY, WITH REFLEX TO CULTURE CT CHEST WO CONTRAST 2020-08-12 18:09:04 Tay Mariscal n [facility] BLOOD CULTURE, AEROBIC & 2020-08-12 06:35:00 Tay Mariscal ANAEROBIC BLOOD CULTURE, AEROBIC & 2020-08-12 06:30:00 Tay Mariscal ANAEROBIC HC COMPLETE BLD COUNT 2020-08-12 06:30:00 Heriberto York on [facility] W/AUTO DIFF PROTHROMBIN TIME WITH INR 2020-08-12 06:30:00 Heriberto York [facility] D-DIMER 2020-08-12 06:30:00 Heriberto York [facility] AMMONIA LEVEL 2020-08-12 06:30:00 Heriberto York [facility] COMPREHENSIVE METABOLIC 2020-08-12 04:00:00 Heriberto York [facility] PANEL MAGNESIUM LEVEL 2020-08-12 04:00:00 Heriberto York [facility] PHOSPHORUS LEVEL 2020-08-12 04:00:00 Heriberto York Tx thodist FERRITIN LEVEL 2020-08-12 04:00:00 Heriberto York [facility] INTERLEUKIN 6 2020-08-12 04:00:00 Heriberto York Met [facility] LDH 2020-08-12 04:00:00 Heriberto York [facility] C-REACTIVE PROTEIN 2020-08-12 04:00:00 Heriberto York [facility] ESTIMATED GFR 2020-08-12 04:00:00 Heriberto York [facility] VENIPUNC NEED PHYS 2020-08-11 16:29:06 Tom Castillo ethodist SKILL,DX OR RX XR CHEST 1 VW PORTABLE 2020-08-11 13:56:48 Tay Mariscal [facility] GASTROINTESTINAL PANEL 2020-08-11 10:03:00 Heriberto York [facility] HC COMPLETE BLD COUNT 2020-08-11 05:00:00 Heribreto York on [facility] W/AUTO DIFF PROTHROMBIN TIME WITH INR 2020-08-11 05:00:00 Heriberto York [facility] HEMOGLOBIN A1C 2020-08-11 05:00:00 Heriberto York [facility] COMPREHENSIVE METABOLIC 2020-08-11 04:00:00 Heriberto York ston [facility] PANEL MAGNESIUM LEVEL 2020-08-11 04:00:00 Heriberto York [facility] PHOSPHORUS LEVEL 2020-08-11 04:00:00 Heriberto York [facility] THYROID STIMULATING 2020-08-11 04:00:00 Heriberto York [facility] HORMONE T4 2020-08-11 04:00:00 Heriberto York [facility] C-REACTIVE PROTEIN 2020-08-11 04:00:00 Heriberto York [facility] ESTIMATED GFR 2020-08-11 04:00:00 Heriberto York [facility] COVID-19 QUALITATIVE PCR 2020-08-10 20:05:00 Heriberto York uston [facility] VENOUS BLOOD GAS 2020-08-09 16:22:00 Romero Limon [facility] HC COMPLETE BLD COUNT 2020-08-09 16:12:00 Romero Limon W/AUTO DIFF COMPREHENSIVE METABOLIC 2020-08-09 16:12:00 Romero Limon [facility] PANEL LACTIC ACID, I-STAT 2020-08-09 16:12:00 Romero Limon ESTIMATED GFR 2020-08-09 16:12:[address] RENAL STONE PROTOCOL 2020-08-08 18:22:58 Janelle Watts ECG ED PRELIMINARY 2020-08-08 17:56:48 Janelle Watts [facility] INTERPRETATION ECG 12-LEAD 2020-08-08 17:49:02 Janelle Watts [facility] HC COMPLETE BLD COUNT 2020-08-08 17:35:00 Janelle Watts [facility] W/AUTO DIFF COMPREHENSIVE METABOLIC 2020-08-08 17:35:00 Janelle Watts [facility] PANEL LACTIC ACID, I-STAT 2020-08-08 17:35:00 Janelle Watts uston [facility] CREATINE KINASE, TOTAL 2020-08-08 17:35:00 Janelle Watts [facility] (CPK) TROPONIN, I-STAT 2020-08-08 17:35:00 Janelle Watts on [facility] B NATRIURETIC PEP, I-STAT 2020-08-08 17:35:00 Janelle Watts [facility] ESTIMATED GFR 2020-08-08 17:35:00 Janelle Watts [facility] HC COMPLETE BLD COUNT 2020-07-07 03:35:00 YorkHeriberto silverman on [facility] W/AUTO DIFF BASIC METABOLIC PANEL 2020-07-07 03:35:00 Heriberto York on [facility] HEPATIC FUNCTION PANEL 2020-07-07 03:35:00 Heriberto York [facility] MAGNESIUM LEVEL 2020-07-07 03:35:00 Heriberto York Met [facility] PHOSPHORUS LEVEL 2020-07-07 03:35:00 Heriberto York Me [facility] PROTHROMBIN TIME WITH INR 2020-07-07 03:35:00 Heriberto York [facility] MISCELLANEOUS REFERRAL 2020-07-07 03:35:00 FaAnnette frankel [facility] TEST ESTIMATED GFR 2020-07-07 03:35:00 Heriberto York Met [facility] HC COMPLETE BLD COUNT 2020-07-06 05:00:00 YorkHeriberto silverman on [facility] W/AUTO DIFF BASIC METABOLIC PANEL 2020-07-06 05:00:00 YorkHeriberto silverman on [facility] HEPATIC FUNCTION PANEL 2020-07-06 05:00:00 Heriberto York [facility] MAGNESIUM LEVEL 2020-07-06 05:00:00 Orlando Yorktor Catracho Met hodist PHOSPHORUS LEVEL 2020-07-06 05:00:00 Orlando Yorktor Hayden Me [facility]odist PROTHROMBIN TIME WITH INR 2020-07-06 05:00:00 Heriberto York [facility] MISCELLANEOUS REFERRAL 2020-07-06 05:00:00 Annette Tovar [facility] TEST ESTIMATED GFR 2020-07-06 05:00:00 Heriberto York [facility] HC COMPLETE BLD COUNT 2020-07-05 05:15:00 Heriberto York on [facility] W/AUTO DIFF BASIC METABOLIC PANEL 2020-07-05 05:15:00 Heriberto York on [facility] HEPATIC FUNCTION PANEL 2020-07-05 05:15:00 Heriberto York [facility] MAGNESIUM LEVEL 2020-07-05 05:15:00 Heriberto York Met [facility] PHOSPHORUS LEVEL 2020-07-05 05:15:00 Heriberto York Me [facility] PROTHROMBIN TIME WITH INR 2020-07-05 05:15:00 Heriberto York HEMOGLOBIN A1C 2020-07-05 05:15:00 Heriberto York [facility] THYROID STIMULATING 2020-07-05 05:15:00 Heriberto York [facility] HORMONE T4 2020-07-05 05:15:00 Heriberto York Met [facility] VITAMIN D 25 HYDROXY LEVEL 2020-07-05 05:15:00 Heriberto York [facility] ZINC LEVEL, SERUM 2020-07-05 05:15:00 Heriberto York Rodolfo ethodist ALPHA FETOPROTEIN 2020-07-05 05:15:00 Heriberto York Rodolfo ethodist ESTIMATED GFR 2020-07-05 05:15:00 Heriberto York Met [facility] ECG 12-LEAD 2020-07-04 18:50:14 Romero Limon Meth odist LACTIC ACID LEVEL 2020-07-04 18:00:00 Romero Limon Me thodist LACTIC ACID, I-STAT 2020-07-04 15:07:00 Romero Limon COVID-19 QUALITATIVE PCR 2020-07-04 12:55:00 Romero Limon URINALYSIS 2020-07-04 12:55:00 Romero Limon Meth odreema URINE DRUGS OF ABUSE 2020-07-04 12:55:00 Romero Limon SCREEN XR CHEST 1 VW 2020-07-04 12:19:[address] HEAD WO CONTRAST 2020-07-04 12:19:05 Romero Limon HC COMPLETE BLD COUNT 2020-07-04 11:29:00 Romero Limon W/AUTO DIFF AMMONIA LEVEL 2020-07-04 11:29:00 Romero Limon COMPREHENSIVE METABOLIC 2020-07-04 11:17:00 Romero Limon PANEL LACTIC ACID, I-STAT 2020-07-04 11:17:00 Romero Limon VENOUS BLOOD GAS 2020-07-04 11:17:00 Romero Limon hodist ESTIMATED GFR 2020-07-04 11:17:00 Romero Limon odreema BASIC METABOLIC PANEL 2020-06-03 05:33:00 Jennifer Ghosh CBC HEMOGRAM 2020-06-03 05:33:00 Jennifer Ghosh HEPATIC FUNCTION PANEL 2020-06-03 05:33:00 Jennifer Ghosh on [facility] MAGNESIUM LEVEL 2020-06-03 05:33:00 Jennifer Ghosh Meth odist PHOSPHORUS LEVEL 2020-06-03 05:33:00 Jennifer Ghosh hodist PROTHROMBIN TIME WITH INR 2020-06-03 05:33:00 Jennifer Ghosh ESTIMATED GFR 2020-06-03 05:33:00 Jennifer Ghosh TRANSFUSE RED BLOOD CELLS 2020-06-02 19:24:45 Jennifer Ghosh XR HAND 3+ VW LEFT 2020-06-02 18:30:00 Jennifer Ghosh M ethodist BASIC METABOLIC PANEL 2020-06-02 05:19:00 Davina Jennifer Socorro langley [facility] HEPATIC FUNCTION PANEL 2020-06-02 05:19:00 DavinaStanislawJennifer Mariel on [facility] MAGNESIUM LEVEL 2020-06-02 05:19:00 eJnnifer Ghosh Meth odist PHOSPHORUS LEVEL 2020-06-02 05:19:00 Jennifer Ghosh Met hodist PROTHROMBIN TIME WITH INR 2020-06-02 05:19:00 DavinaJennifer Gucci yang [facility] HC COMPLETE BLD COUNT 2020-06-02 05:19:00 DavinaStanislawJennifer Socorro langley [facility] W/AUTO DIFF ESTIMATED GFR 2020-06-02 05:19:00 Jennifer Ghosh Meth [facility]ist SMEAR REVIEW 2020-06-02 05:19:00 Jennifer Ghosh Meth odist VENIPUNC NEED PHYS 2020-06-01 13:55:27 Samanta Ravi ethodist SKILL,DX OR RX BASIC METABOLIC PANEL 2020-06-01 05:30:00 DavinaStanislawJennifer Socorro langley [facility] CBC HEMOGRAM 2020-06-01 05:30:00 Jennifer Ghosh Meth odist HEPATIC FUNCTION PANEL 2020-06-01 05:30:00 DavinaJennifer Mariel on [facility] MAGNESIUM LEVEL 2020-06-01 05:30:00 Jennifer Ghosh Meth odist PHOSPHORUS LEVEL 2020-06-01 05:30:00 Jennifer Ghosh Met hodist PROTHROMBIN TIME WITH INR 2020-06-01 05:30:00 Davina Jennifer Gucci yang [facility] AMMONIA LEVEL 2020-06-01 05:30:00 Jennifer Ghosh Meth odist ESTIMATED GFR 2020-06-01 05:30:00 Jennifer Ghosh Meth [facility] TYPE AND SCREEN 2020-06-01 05:30:00 DaivnaJennifer Meth odist URINE DRUGS OF ABUSE 2020-05-31 09:09:00 Annette Tovar on [facility] SCREEN MISCELLANEOUS REFERRAL 2020-05-31 09:09:00 Annette Tovar [facility] TEST HC COMPLETE BLD COUNT 2020-05-31 04:27:00 Heriberto York on [facility] W/AUTO DIFF BASIC METABOLIC PANEL 2020-05-31 04:27:00 Heriberto York on [facility] HEPATIC FUNCTION PANEL 2020-05-31 04:27:00 Heriberto York [facility] MAGNESIUM LEVEL 2020-05-31 04:27:00 Orlando Yorktor Hayden Met hodist PHOSPHORUS LEVEL 2020-05-31 04:27:00 Heriberto York Me thodist PROTHROMBIN TIME WITH INR 2020-05-31 04:27:00 Heriberto Yorkston [facility] HEMOGLOBIN A1C 2020-05-31 04:27:00 Heriberto York Met [facility]odist THYROID STIMULATING 2020-05-31 04:27:00 Heriberto York [facility] HORMONE T4 2020-05-31 04:27:00 Heriberto York Met [facility] VITAMIN D 25 HYDROXY LEVEL 2020-05-31 04:27:00 Heriberto York [facility] ZINC LEVEL, SERUM 2020-05-31 04:27:00 Heriberto York M ethodist ALPHA FETOPROTEIN 2020-05-31 04:27:00 Heriberto York [...] HC COMPLETE BLD COUNT 2020-05-30 18:20:00 Romero Limon n [facility] W/AUTO DIFF COMPREHENSIVE METABOLIC 2020-05-30 18:15:00 Romero Limon [facility] PANEL LACTIC ACID, I-STAT 2020-05-30 18:15:00 Romero Limon ESTIMATED GFR 2020-05-30 18:15:00 Romero Limon MRI BRAIN & ORBIT W WO 2020-05-27 17:10:00 Cindy Adair CONTRAST URINE DRUGS OF ABUSE 2020-05-17 09:10:00 Annette Tovarist SCREEN MISCELLANEOUS REFERRAL 2020-05-17 03:22:00 Annette Tovar TEST BASIC METABOLIC PANEL 2020-05-17 03:22:00 Mercy Kaplan ALCOHOL LEVEL, BLOOD 2020-05-17 03:22:00 Annette Tovarist HEPATIC FUNCTION PANEL 2020-05-17 03:22:00 Annette Tovar HC COMPLETE BLD COUNT 2020-05-17 03:22:00 Mercy Kaplan W/AUTO DIFF PROTHROMBIN TIME WITH INR 2020-05-17 03:22:00 Mercy Kaplan ESTIMATED GFR 2020-05-17 03:22:00 Annette Tovar Tx thodist XR ABDOMEN 1 VW PORTABLE 2020-05-16 18:10:00 Annette Tovar HC COMPLETE BLD COUNT 2020-05-16 05:10:00 Mercy Kaplan W/AUTO DIFF PROTHROMBIN TIME WITH INR 2020-05-16 05:10:00 Howard Staton HEPATIC FUNCTION PANEL 2020-05-16 01:21:00 Howard Staton ESTIMATED GFR 2020-05-16 01:21:00 Ankoma-Howard Cisneros Rodolfo ethodist BASIC METABOLIC PANEL 2020-05-16 01:21:00 Howard Staton [facility] COMPREHENSIVE METABOLIC 2020-05-15 05:00:00 Mercy Kaplan [facility] PANEL HC COMPLETE BLD COUNT 2020-05-15 05:00:00 Mercy Kaplan [facility] W/AUTO DIFF ESTIMATED GFR 2020-05-15 05:00:00 Mercy Kaplan on [facility] MAGNESIUM LEVEL 2020-05-15 05:00:00 Mercy Kaplan on [facility] PROTHROMBIN TIME WITH INR 2020-05-15 05:00:00 Mercy Kaplan [facility] PHOSPHORUS LEVEL 2020-05-15 05:00:00 Mercy Kaplan [facility] PROTHROMBIN TIME WITH INR 2020-05-14 07:46:00 GillesEmanuel galvan [facility] Imarendenewe AMMONIA LEVEL 2020-05-14 06:05:00 Jose CarlosEmanuel perkins ethodist Imarendenewe BASIC METABOLIC PANEL 2020-05-14 06:05:00 Emanuel Call Nikki taylor [facility] Imarendenewe ESTIMATED GFR 2020-05-14 06:05:00 Emanuel Call ethodist Imarendenewe HEPATIC FUNCTION PANEL 2020-05-14 06:05:00 Emanuel Call [facility] Imarendenewe PHOSPHORUS LEVEL 2020-05-14 06:05:00 GillesEmanuel galvan [facility] Imarendenewe MAGNESIUM LEVEL 2020-05-14 06:05:00 Emanuel Call ethodist Imarendenewe LACTIC ACID, I-STAT 2020-05-13 19:45:00 Vamsi Johnson [facility] BASIC METABOLIC PANEL 2020-05-13 19:45:00 Vamsi Johnson [facility] ESTIMATED GFR 2020-05-13 19:45:00 Vamsi Johnson [facility] COVID-19 QUALITATIVE PCR 2020-05-13 18:05:00 Vamsi Johnson [facility] LACTIC ACID, I-STAT 2020-05-13 18:05:00 Alex, Vamsi Bomaverick [facility] OR CRITICAL CARE, E/M 2020-05-13 15:22:15 Alex, Vamsi Quintanilla n [facility] 30-74 MINUTES ECG ED PRELIMINARY 2020-05-13 15:22:15 Vamsi Johnson [facility] INTERPRETATION CT HEAD WO CONTRAST 2020-05-13 14:46:30 Vamsi Johnson Troymaverick [facility] XR KNEE 3 VW RIGHT 2020-05-13 14:38:04 Alex, Vamsi [facility] XR CHEST 1 VW PORTABLE 2020-05-13 13:58:09 Alex, Vamsi Kush [place] [facility] URINALYSIS 2020-05-13 13:40:00 Alex, Vamsi Simmonsmaverick [facility] ECG 12-LEAD 2020-05-13 13:23:43 Alex Vamsi Currie [facility] HC COMPLETE BLD COUNT 2020-05-13 13:20:00 AlexVamsi [facility] W/AUTO DIFF PROTHROMBIN TIME WITH INR, 2020-05-13 13:20:00 Alex, Vamsi perezston [facility] I-STAT COMPREHENSIVE METABOLIC 2020-05-13 13:20:00 AlexVamsi [facility] PANEL LACTIC ACID, I-STAT 2020-05-13 13:20:00 Vamsi Johnson [facility] CREATINE KINASE, TOTAL 2020-05-13 13:20:00 Vamsi Johnson on [facility] (CP[facility]) TROPONIN, I-STAT 2020-05-13 13:20:00 Alex Vamsi Simmonsmaverick [facility] B NATRIURETIC PEP, I-STAT 2020-05-13 13:20:00 AlexGarcíah Kush [place] [facility] AMMONIA LEVEL 2020-05-13 13:20:00 AlexaGrcíaindia Simmonsmaverick [facility] ESTIMATED GFR 2020-05-13 13:20:00 AlexGarcíaindia Currie Catr[facility] HC COMPLETE BLD COUNT 2020-04-21 05:42:00 Mercy Kaplan W/AUTO DIFF COMPREHENSIVE METABOLIC 2020-04-21 05:42:00 Mercy Kaplan [facility] PANEL ESTIMATED GFR 2020-04-21 05:42:00 Mercy Kaplan on [facility] BILIRUBIN DIRECT 2020-04-21 05:42:00 Mercy Kaplan [facility] MISCELLANEOUS REFERRAL 2020-04-20 06:10:00 Mercy Kaplan [facility] TEST BASIC METABOLIC PANEL 2020-04-20 04:25:00 Mercy Kaplan [facility] HC COMPLETE BLD COUNT 2020-04-20 04:25:00 Mercy Kaplan [facility] W/AUTO DIFF ESTIMATED GFR 2020-04-20 04:25:00 Mercy Kaplan on [facility] HEPATIC FUNCTION PANEL 2020-04-20 04:25:00 Mercy Kaplan POC GLUCOSE 2020-04-19 20:25:00 Mercy Kaplan [facility] BASIC METABOLIC PANEL 2020-04-19 04:56:00 Mercy Kaplan ESTIMATED GFR 2020-04-19 04:56:00 Mercy Kaplan [facility] XR KNEE 3 VW RIGHT 2020-04-18 17:05:10 Mercy Kaplan [place] [facility] COMPREHENSIVE METABOLIC 2020-04-18 04:00:00 Mercy Kaplan [facility] PANEL ESTIMATED GFR 2020-04-18 04:00:00 Mercy Kaplan on [facility] MAGNESIUM LEVEL 2020-04-18 04:00:00 Mercy Kaplan [facility] BASIC METABOLIC PANEL 2020-04-17 04:50:00 Mercy Kaplan [facility] ESTIMATED GFR 2020-04-17 04:50:00 Mercy Kaplan on [facility] AMMONIA LEVEL 2020-04-16 16:58:00 Mercy Kaplan [facility] URINE DRUGS OF ABUSE 2020-04-15 13:35:00 FaAnnette frankel on [facility] SCREEN COMPREHENSIVE METABOLIC 2020-04-15 12:34:00 Mercy Kaplan [facility] PANEL ESTIMATED GFR 2020-04-15 12:34:00 Mercy Kaplan [facility] COMPREHENSIVE METABOLIC 2020-04-15 05:49:00 Mercy Kaplan [facility] PANEL HC COMPLETE BLD COUNT 2020-04-15 05:49:00 Mercy Kaplan [facility] W/AUTO DIFF ESTIMATED GFR 2020-04-15 05:49:00 Mercy Kaplan [facility] ALCOHOL LEVEL, BLOOD 2020-04-14 15:04:00 FaAnnette frankel on [facility] COVID-19 QUALITATIVE PCR 2020-04-13 18:04:00 Wild Kovacs [employer] [facility] [place] [facility] ABDOMEN PELVIS WO 2020-04-13 15:59:36 FermínWild todd n [facility] CONTRAST [place] URINALYSIS 2020-04-13 13:20:00 Fermín Wild Catracho Met [facility]odist [place] HC COMPLETE BLD COUNT 2020-04-13 12:21:00 Wild Kovacs on [facility] W/AUTO DIFF [place] COMPREHENSIVE METABOLIC 2020-04-13 12:21:00 FermínWild simmons Nikki taylor [facility] PANEL [place] B NATRIURETIC PEP, I-STAT 2020-04-13 12:21:00 Wild Kovacs [facility] [place] ESTIMATED GFR 2020-04-13 12:21:00 Kacey Kovacske Catracho Met [facility]ist [place] COMPLETE BLD COUNT 2020-03-19 04:22:00 Baylee Girard [facility] W/AUTO DIFF BASIC METABOLIC PANEL 2020-03-19 04:22:00 Baylee Girard [facility] HEPATIC FUNCTION PANEL 2020-03-19 04:22:00 Chad Girard [facility] MAGNESIUM LEVEL 2020-03-19 04:22:00 Baylee Girard on [facility] PROTHROMBIN TIME WITH INR 2020-03-19 04:22:00 Flaco Girard [facility] ESTIMATED GFR 2020-03-19 04:22:00 Baylee Girard on [facility] MRI BRAIN WO CONTRAST 2020-03-18 22:27:44 William Velez [facility] URINE CULTURE 2020-03-18 17:00:00 Baylee Girard on [facility] URINALYSIS SCREEN AND 2020-03-18 17:00:00 Baylee Girard [facility] MICROSCOPY, WITH REFLEX TO CULTURE URINE DRUGS OF ABUSE 2020-03-18 17:00:00 Baylee Girard SCREEN BASIC METABOLIC PANEL 2020-03-18 00:25:00 Baylee Girard HEPATIC FUNCTION PANEL 2020-03-18 00:25:00 Chad Girard MAGNESIUM LEVEL 2020-03-18 00:25:00 Baylee Girard on [facility] ESTIMATED GFR 2020-03-18 00:25:00 Baylee Girard on [facility] HC COMPLETE BLD COUNT 2020-03-18 00:10:00 Baylee Girard W/AUTO DIFF PROTHROMBIN TIME WITH INR 2020-03-18 00:10:[address] HEAD WO CONTRAST 2020-03-17 22:17:12 Baylee Girard LACTIC ACID LEVEL 2020-03-17 22:10:00 Romero Limon Me thodist LACTIC ACID LEVEL 2020-03-17 20:22:00 Romero Limon Tx thodist COVID-19 QUALITATIVE PCR 2020-03-17 18:10:00 Romero Limon AMMONIA LEVEL 2020-03-17 16:40:00 Romero Limon odreema URINALYSIS 2020-03-17 16:30:00 Romero Limon Meth odreema HC COMPLETE BLD COUNT 2020-03-17 16:30:00 Romero Limon W/AUTO DIFF COMPREHENSIVE METABOLIC 2020-03-17 16:30:00 Romero Limon PANEL LACTIC ACID, I-STAT 2020-03-17 16:30:00 Romero Limon AMYLASE LEVEL 2020-03-17 16:30:00 Romero Limon odreema PROTHROMBIN TIME WITH INR, 2020-03-17 16:30:00 Romero Limon I-STAT ESTIMATED GFR 2020-03-17 16:30:00 Romero Limon odreema IONIZED CALCIUM 2020-03-17 16:30:00 Romero Limon Meth odist ALCOHOL LEVEL, BLOOD 2020-03-17 16:30:00 Romero Limonist URINE DRUGS OF ABUSE 2020-03-17 16:30:00 Romero Limon [facility] SCREEN CV STRESS TEST 2020-03-14 11:40:36 Angela Roper on [facility] TTE STRESS DOBUTAMINE 2020-03-14 11:40:36 Angela Roper ([id number]) GENERAL SLEEP STUDY 2020-03-11 09:01:00 Ivet Reddy n [facility] Rickey HC COMPLETE BLD COUNT 2020-02-21 05:40:00 YorkHeriberto taylor on [facility] W/AUTO DIFF BASIC METABOLIC PANEL 2020-02-21 05:40:00 YorkHeriberto garvin on [facility] HEPATIC FUNCTION PANEL 2020-02-21 05:40:00 YorkHeriberto silverman ton [facility] MAGNESIUM LEVEL 2020-02-21 05:40:00 YorkHeriberto silverman Met hodist PHOSPHORUS LEVEL 2020-02-21 05:40:00 YorkHeriberto silverman Me thodist PROTHROMBIN TIME WITH INR 2020-02-21 05:40:00 YorkHeriberto silverman [facility] ESTIMATED GFR 2020-02-21 05:40:00 Heriberto [place] Met hodist HC COMPLETE BLD COUNT 2020-02-20 05:47:00 YorkHeriberto garvin on [facility] W/AUTO DIFF PROTHROMBIN TIME WITH INR 2020-02-20 05:47:00 YorkHeriberto silverman [facility] BASIC METABOLIC PANEL 2020-02-20 04:00:00 YorkHeriberto garvin on [facility] HEPATIC FUNCTION PANEL 2020-02-20 04:00:00 YorkHeriberto garvin ton [facility] MAGNESIUM LEVEL 2020-02-20 04:00:00 YorkHeriberto silverman Met hodist PHOSPHORUS LEVEL 2020-02-20 04:00:00 YorkHeriberto silverman Me thodist ESTIMATED GFR 2020-02-20 04:00:00 YorkHeriberto silverman Met hodist XR ABDOMEN 1 VW PORTABLE 2020-02-19 18:17:50 Annette Tovar [facility] AMMONIA LEVEL 2020-02-19 13:00:00 Heriberto [place] Met [facility]odist HC COMPLETE BLD COUNT 2020-02-19 06:08:00 Heriberto [place] on [facility] W/AUTO DIFF BASIC METABOLIC PANEL 2020-02-19 06:08:00 Heriberto [place] on [facility] HEPATIC FUNCTION PANEL 2020-02-19 06:08:00 Heriberto [place] [facility] MAGNESIUM LEVEL 2020-02-19 06:08:00 Heriberto [place] Met [facility]odist PHOSPHORUS LEVEL 2020-02-19 06:08:00 Heriberto [place] Me [facility]odist PROTHROMBIN TIME WITH INR 2020-02-19 06:08:00 Heriberto [place] HEMOGLOBIN A1C 2020-02-19 06:08:00 Heriberto [place] Met [facility] THYROID STIMULATING 2020-02-19 06:08:00 Heriberto [place] [facility] HORMONE T4 2020-02-19 06:08:00 Heriberto [place] Met [facility] VITAMIN D 25 HYDROXY LEVEL 2020-02-19 06:08:00 Heriberto [place] ZINC LEVEL, SERUM 2020-02-19 06:08:00 Heriberto [place] ethodist ALPHA FETOPROTEIN 2020-02-19 06:08:00 Heriberto [place] M ethodist ESTIMATED GFR 2020-02-19 06:08:00 Heriberto [place] Met [facility]odist ALCOHOL LEVEL, BLOOD 2020-02-18 17:21:00 Annette Tovar on [facility] URINE DRUGS OF ABUSE 2020-02-18 16:40:00 Annette Tovar on [facility] SCREEN URINALYSIS 2020-02-18 13:01:00 Danyel Grubbs on [facility] URINE DRUGS OF ABUSE 2020-02-18 13:01:00 Danyel Grubbs [facility] SCREEN HC COMPLETE BLD COUNT 2020-02-18 10:00:00 Danyel Grubbs [facility] W/AUTO DIFF COMPREHENSIVE METABOLIC 2020-02-18 10:00:00 Danyel Grubbs [facility] PANEL PARTIAL THROMBOPLASTIN 2020-02-18 10:00:00 Danyel Grubbs TIME (PTT) PROTHROMBIN TIME WITH INR, 2020-02-18 10:00:00 Danyel Grubbs I-STAT AMMONIA LEVEL 2020-02-18 10:00:00 Danyel Grubbs on [facility] ESTIMATED GFR 2020-02-18 10:00:00 Danyel Grubbs on [facility] ALCOHOL LEVEL, BLOOD 2020-02-18 10:00:00 Danyel Grubbs FERRITIN LEVEL 2020-01-20 12:39:00 Pierce Garcia TOTAL IRON BINDING 2020-01-20 12:39:00 Pierce Garcia ethodist CAPACITY [place] HC COMPLETE BLD COUNT 2020-01-20 06:00:00 Pierce Garcia [facility] W/AUTO DIFF [place] BASIC METABOLIC PANEL 2020-01-20 06:00:00 Pierce Garcia Orthodoxyreema Cisneros HEPATIC FUNCTION PANEL 2020-01-20 06:00:00 Pierce Garcia on [facility] [place] MAGNESIUM LEVEL 2020-01-20 06:00:00 Pierce Garcia odreema Cisneros PHOSPHORUS LEVEL 2020-01-20 06:00:00 Pierce Garcia hodreema Cisneros PROTHROMBIN TIME WITH INR 2020-01-20 06:00:00 Pierce Garcia [facility] [place] ALPHA FETOPROTEIN 2020-01-20 06:00:00 Annette Tovar ESTIMATED GFR 2020-01-20 06:00:00 Annette Tovar Me thodist URINE DRUGS OF ABUSE 2020-01-19 19:34:00 Annette Tovar on [facility] SCREEN DRUG QUARLES 9, SER/THAIS, SCRN 2020-01-19 11:14:00 Calos Garcia W/RFLX TO CONF MISCELLANEOUS REFERRAL 2020-01-19 11:14:00 Calos Garcia TEST OPIATES, S/P, QUANT 2020-01-19 11:14:00 Calos Garcia BLOOD CULTURE, AEROBIC & 2020-01-19 03:00:00 Dinakar, Pierce Marquez ANAEROBIC [place] HC COMPLETE BLD COUNT 2020-01-19 03:00:00 Dinakar, Pierce langley [facility] W/AUTO DIFF [place] BASIC METABOLIC PANEL 2020-01-19 03:00:00 Dinakar, Pierce Cisneros HEPATIC FUNCTION PANEL 2020-01-19 03:00:00 Dinakar, Pierce Cisneros MAGNESIUM LEVEL 2020-01-19 03:00:00 Dinakar, Pierce Cisneros PHOSPHORUS LEVEL 2020-01-19 03:00:00 Dinakar, Pierce Hayden Met dina Cisneros PROTHROMBIN TIME WITH INR 2020-01-19 03:00:00 Dinakar, Pierce Cisneros HEMOGLOBIN A1C 2020-01-19 03:00:00 Dinakar, Pierce Cisneros ESTIMATED GFR 2020-01-19 03:00:00 Dinakar, Pierce Cisneros URINALYSIS, AUTOMATED WITH 2020-01-19 02:30:00 Dinakar, Pierce Marquez MICROSCOPY [place] PREALBUMIN LEVEL 2020-01-19 02:00:00 Dinakar, Pierce Hayden Met dina Cisneros XR FOOT 3+ VW RIGHT 2020-01-18 21:39:57 Diana Bangura HC COMPLETE BLD COUNT 2020-01-18 20:56:00 Diana Bangura W/AUTO DIFF COMPREHENSIVE METABOLIC 2020-01-18 20:56:00 Diana Bangura PANEL AMYLASE LEVEL 2020-01-18 20:56:00 Diana Bangura MAGNESIUM LEVEL 2020-01-18 20:56:00 Diana Bangura PHOSPHORUS LEVEL 2020-01-18 20:56:00 Diana Bangura ESTIMATED GFR 2020-01-18 20:56:00 Diana Bangura URINALYSIS 2020-01-18 20:25:00 Diana Bangura BASIC METABOLIC PANEL 2020-01-11 05:40:00 Dinakar, Pierce langley [facility] [place] [facility] COMPLETE BLD COUNT 2020-01-11 05:40:00 Dinakar, Pierce langley [facility] W/AUTO DIFF [place] MAGNESIUM LEVEL 2020-01-11 05:40:00 Dinakar, Pierce Treviño odist [place] HEPATIC FUNCTION PANEL 2020-01-11 05:40:00 Dinakar, Pierce Floyd on [facility] [place] PHOSPHORUS LEVEL 2020-01-11 05:40:00 Dinakar, Pierce Hayden Met hodreema Lopezra PROTHROMBIN TIME WITH INR 2020-01-11 05:40:00 Dinakar, Pierce Cisneros ESTIMATED GFR 2020-01-11 05:40:00 Dinakar, Pierce Treviño odreema [place] XR FOOT 2 VW RIGHT 2020-01-10 18:22:30 Dinakar, Pierce Reynolds ethodist [place] MRI BRAIN WO CONTRAST 2020-01-10 17:52:00 Dinakar, Pierce langley [facility] [place] HC COMPLETE BLD COUNT 2020-01-10 05:14:00 Dinakar, Pierce langley [facility] W/AUTO DIFF [place] BASIC METABOLIC PANEL 2020-01-10 05:14:00 Dinakar, Pierce langley [facility] [place] HEPATIC FUNCTION PANEL 2020-01-10 05:14:00 Dinakar, Pierce Floyd on [facility] [place] MAGNESIUM LEVEL 2020-01-10 05:14:00 Dinakar, Pierce Treviño odist [place] PHOSPHORUS LEVEL 2020-01-10 05:14:00 Dinakar, Pierce Cisneros PROTHROMBIN TIME WITH INR 2020-01-10 05:14:00 Dinakar, Pierce Cisneros ESTIMATED GFR 2020-01-10 05:14:00 Dinakar, Pierce Treviño odist [place] URINE CULTURE 2020-01-09 05:30:00 Kayleigh Soaers URINALYSIS SCREEN AND 2020-01-09 05:30:00 Kayleigh Soares MICROSCOPY, WITH REFLEX TO CULTURE SODIUM LEVEL, URINE, 2020-01-09 05:30:00 Todd Hall [facility] RANDOM CREATININE LEVEL, URINE, 2020-01-09 05:30:00 Todd Hall [facility] RANDOM HC COMPLETE BLD COUNT 2020-01-09 05:08:00 Dinakar, Pierce langley [facility] W/AUTO DIFF [place] BASIC METABOLIC PANEL 2020-01-09 05:08:00 Dinakar, Pierce langley [facility] [place] HEPATIC FUNCTION PANEL 2020-01-09 05:08:00 Dinakar, Pierce Floyd on [facility] [place] MAGNESIUM LEVEL 2020-01-09 05:08:00 Dinakar, Pierce Hayden Meth odist [place] PHOSPHORUS LEVEL 2020-01-09 05:08:00 Dinakar, Pierce Hayden Met hodist [place] PROTHROMBIN TIME WITH INR 2020-01-09 05:08:00 Dinakar, Pierce Marquez [place] ESTIMATED GFR 2020-01-09 05:08:00 Dinakar, Pierce Treviño odist [place] XR ABDOMEN 1 VW PORTABLE 2020-01-08 18:04:31 Annette Tovar [facility] HC COMPLETE BLD COUNT 2020-01-08 06:11:00 Dinakar, Pierce langley [facility] W/AUTO DIFF [place] BASIC METABOLIC PANEL 2020-01-08 06:11:00 Dinakar, Pierce langley [facility] [place] HEPATIC FUNCTION PANEL 2020-01-08 06:11:00 Dinakar, Pierce Floyd on [facility] [place] MAGNESIUM LEVEL 2020-01-08 06:11:00 Dinakar, Pierce Treviño odist [place] PHOSPHORUS LEVEL 2020-01-08 06:11:00 Dinakar, Pierce Olivier hodreema Lopezra PROTHROMBIN TIME WITH INR 2020-01-08 06:11:00 Dinakar, Pierce yang [facility] [place] HEMOGLOBIN A1C 2020-01-08 06:11:00 Dinakar, Pierce Hayden Meth odist [place] ESTIMATED GFR 2020-01-08 06:11:00 Dinakar, Pierce Treviño odist [place] BLOOD CULTURE, AEROBIC & 2020-01-08 06:10:00 Dinakar, Pierce taylor [facility] ANAEROBIC [place] BLOOD CULTURE, AEROBIC & 2020-01-07 23:03:00 Dinakar, Pierce Marquez ANAEROBIC [place] URINALYSIS, AUTOMATED WITH 2020-01-07 23:03:00 Rolando, Pierce Marquez MICROSCOPY [place] AMMONIA LEVEL 2020-01-07 15:30:[address] HEAD WO CONTRAST 2020-01-07 15:23:57 Diana Bangura URINALYSIS 2020-01-07 15:00:00 Diana Bangura HC COMPLETE BLD COUNT 2020-01-07 14:45:00 iDana Bangura W/AUTO DIFF COMPREHENSIVE METABOLIC 2020-01-07 14:45:00 [...] BLD COUNT 2019-12-25 04:40:00 Dinakar, Pierce langley [facility] W/AUTO DIFF [place] BASIC METABOLIC PANEL 2019-12-25 04:40:00 Dinakar, Pierce Cisneros HEPATIC FUNCTION PANEL 2019-12-25 04:40:00 Dinakar, Pierce Floyd on [facility] [place] MAGNESIUM LEVEL 2019-12-25 04:40:00 Dinholleyr, Pierce Hayden Meth odist [place] PHOSPHORUS LEVEL 2019-12-25 04:40:00 Dinakar, Pierce Hayden Met dina Cisneros PROTHROMBIN TIME WITH INR 2019-12-25 04:40:00 Dinakar, Pierce Cisneros ESTIMATED GFR 2019-12-25 04:40:00 Dinakar, Pierce Cisneros VENIPUNC NEED PHYS 2019-12-24 14:11:08 Samanta Ravi ethodist SKILL,DX OR RX URINALYSIS, AUTOMATED WITH 2019-12-24 08:40:00 Dinakar, Pierce Marquez MICROSCOPY [place] CBC WITH PLATELET AND 2019-12-24 05:20:00 Dinakar, Pierce Marquez DIFFERENTIAL [place] PROTHROMBIN TIME WITH INR 2019-12-24 05:20:00 Dinakar, Pierce Cisneros HEMOGLOBIN A1C 2019-12-24 05:20:00 Dinakar, Pierce Cisneros BASIC METABOLIC PANEL 2019-12-24 04:00:00 Dinakar, Pierce Cisneros HEPATIC FUNCTION PANEL 2019-12-24 04:00:00 Dinakar, Pierce galvan [facility] [place] MAGNESIUM LEVEL 2019-12-24 04:00:00 Dinakar, Pierce Cisneros PHOSPHORUS LEVEL 2019-12-24 04:00:00 Dinakar, Pierce Hayden Met dina Cisneros ESTIMATED GFR 2019-12-24 04:00:00 Dinakar, Pierce Cisneros BLOOD CULTURE, AEROBIC & 2019-12-23 17:20:00 Dinakar, Pierce taylor [facility] ANAEROBIC [place] HC COMPLETE BLD COUNT 2019-12-23 17:20:00 Dinakar, Pierce langley [facility] W/AUTO DIFF [place] PROTHROMBIN TIME WITH INR 2019-12-23 17:20:00 Dinakar, Pierce Cisneros PARTIAL THROMBOPLASTIN 2019-12-23 17:20:00 Dinakar, Pierce galvan [facility] TIME (PTT) [place] AMYLASE LEVEL 2019-12-23 16:36:00 Dinakar, Pierce Lopezra BASIC METABOLIC PANEL 2019-12-23 16:36:00 Dinakar, Pierce langley Orthodoxyreema Cisneros HEPATIC FUNCTION PANEL 2019-12-23 16:36:00 DinPierce wallace on [facility] [place] LIPASE LEVEL 2019-12-23 16:36:00 Dinakar, Pierce Hayden Meth anabellereema [place] LIPID PANEL 2019-12-23 16:36:00 Dinakar, Pierce Hayden Meth anabellereema [place] MAGNESIUM LEVEL 2019-12-23 16:36:00 Dinakar, iPerce Hayden Meth baltazar [place] PHOSPHORUS LEVEL 2019-12-23 16:36:00 Dinakar, Pierce Hayden Met dina Cisneros PREALBUMIN LEVEL 2019-12-23 16:36:00 Dinakar, Pierce Hayden Met dina Cisneros ESTIMATED GFR 2019-12-23 16:36:00 Dinholleyr, Pierce Hayden Meth anabellereema [place] POC CREATININE 2019-12-23 12:28:00 Angela Roper on [facility] ESTIMATED GFR 2019-12-23 12:28:00 Angela Roper on [facility] Plan of Care Planned Activity Planned Date Details Comments Source Future Scheduled 2021-03-12 INFLUENZA VACCINE [facility] 00:00:00 [code = INFLUENZA VACCINE] Future Scheduled 2019-10-08 Screening for [facility]odist Test 00:00:00 malignant neoplasm of cervix (procedure) [code = 880606841] Future Scheduled 2018-10-17 BREAST CANCER [facility]ist Test 00:00:00 SCREENING [code = BREAST CANCER SCREENING] Future Scheduled 2011 COLONOSCOPY SCRE[place]ING [place] [facility] Test 00:00:00 [code = COLONOSCOPY SCREENING] Future Scheduled 2011 SHINGLES VACCINES [place] [facility] Test 00:00:00 (#1) [code = SHINGLES VACCINES (#1)] Future Scheduled 1977 COVID-19 VACCINE (1) Nikki ston [facility] Test 00:00:00 [code = COVID-19 VACCINE (1)] Encounters Start End Encounter Admission Attending Care Care Encounter Source Date/Time Date/Time Type Type Clinicians Facility Department ID 2020-11-02 2020-11-02 Outpatient [facility] [id number] Beauty 00:00:00 00:00:00 CALOS [facility] 2020-11-02 2020-11-02 Outpatient [facility] [id number] Beauty 00:00:00 00:00:00 CALOS [address] 2020-10-26 2020-10-26 Outpatient MILDRED, [facility] [id number] Beauty 00:00:00 00:00:00 AGUSTÍN [address] 2020-10-26 2020-10-26 Outpatient MILDRED, [facility] [id number] Beauty 00:00:00 00:00:00 AGUSTÍN [address] 2020-10-23 2020-10-24 Inpatient DINAKAR, [facility] [id number] Beauty 00:00:00 00:00:00 PIERCE [address] 2020-10-11 2020-10-11 Outpatient [facility] [id number] [facility] 2020-10-09 2020-10-09 Emergency AZEVEDO, [facility] [id number] Beauty 00:00:00 00:00:00 FABIAN [address] 2020-10-03 2020-10-03 Outpatient [facility] [id number] [facility] 00:[facility] 2020-09-19 2020-09-21 Inpatient JENNIFER GHOSH [id number] Beauty 00:00:00 00:00:[address] 2020-09-14 2020-09-14 Outpatient [facility] [id number] [facility] 00:00:00 00:00:00 [facility] 2020-08-31 2020-09-02 Inpatient GARCÍAAKAR, [facility] [id number] Beauty 00:00:00 00:00:00 PIERCE [address] 2020-08-10 2020-08-13 Inpatient YORK, [facility] [id number] Beauty 00:00:00 00:00:00 HERIBERTO [address] 2020-08-09 2020-08-09 Emergency NUSZEN, [facility] [id number] Beauty 00:00:00 00:00:00 ROMERO [address] 2020-08-08 2020-08-08 Emergency WEIBEL, [facility] 064 [id number] Beauty 00:00:00 00:00:00 JANELLE [address] 2020-07-27 2020-07-27 Outpatient [facility] [id number] [facility] 2020-07-18 2020-07-18 Outpatient [facility] [id number] Beauty 00:00:00 00:00:[address] 2020-07-04 2020-07-07 Inpatient JENNIFER GHOSH [facility] [id number] Beauty 00:00:00 00:00:[address] 2020-06-28 2020-06-28 Outpatient [facility] [id number] [facility] 2020-06-20 2020-06-20 Outpatient [facility] [id number] [facility] 2020-05-30 2020-06-03 Inpatient JENNIFER GHOSH [facility] [id number] Beauty 00:00:00 00:00:[address] 2020-05-27 2020-05-27 Outpatient YALAMANCHIL [facility] [id number] Beauty 00:00:00 00:00:00 CINDY Torres [address] 2020-05-20 2020-05-20 Outpatient [facility]LML[facility] [id number] [facility] St 00:00:00 00:00:00 [facility] 2020-05-13 2020-05-17 Inpatient MCCARTAN, [facility] [id number] Beauty 00:00:00 00:00:00 MERCY [address] 2020-04-13 2020-04-21 Inpatient YOJANA, [facility] [id number] Beauty 00:00:00 00:00:00 JUNO [address] 2020-04-13 2020-04-13 [facility] [id number] [address] 16:02:00 16:02:00 [employer] [facility] Out[facility] Clinics 2020-04-13 2020-04-13 [facility] [id number] 09:33:00 09:33:[address] [place] [address] Luke s - Drive [facility] Medicine l Medicine Outpati ent Clinics 2020-04-05 2020-04-05 [facility] [id number] 09:10:00 09:10:00 [place] [address] [place] [address] Luke s - Drive [facility] l Medicine Outpati ent Clinics 2020-04-04 2020-04-04 [facility] [id number] 10:58:00 10:58:00 [place] [employer] Luke s - Drive [facility] Medicine l Medicine Outpati ent Clinics 2020-04-04 2020-04-04 [facility] [id number] 10:00:00 10:00:00 [place] [employer] s - Drive [facility] Medicine Outpati ent Clinics 2020-03-17 2020-03-19 Inpatient [facility] [id number] Beauty 00:00:00 00:00:00 Ben PIERSON [facility] [address] [facility] 2020-03-16 2020-03-16 [facility] [id number] 11:12:00 11:12:00 t [place] [employer] s - Drive [facility] Medicine Outpati ent Clinics 2020-03-14 2020-03-14 Outpatient JACQUELIN [facility] [id number] Beauty 00:00:00 00:00:00 ANGELA [address] 2020-03-10 2020-03-10 [facility] [id number] 13:18:00 13:18:00 [place] [employer] s - Drive [facility] Medicine Outpati ent Clinics 2020-03-07 2020-03-07 [facility] [id number] 16:07:00 16:07:00 [place] [employer] s - Drive [facility] l Medicine Outpati ent Clinics 2020-03-04 2020-03-04 [facility] [id number] 11:00:00 11:00:00 [place] [address] [place] [address] [employer] s - Drive [facility] l Medicine Outpati ent Clinics 2020-03-04 2020-03-04 [facility] [id number] 11:00:00 11:00:00 [employer] [facility] 2020-03-04 2020-03-04 Outpatient MEAGAN, [facility] [id number] Beauty 00:00:00 00:00:00 JAJACQUIHUE 578 Meth erasto 2020-02-18 2020-02-21 Inpatient YORK, [facility] [id number] Beauty 00:00:00 00:00:00 HERIBERTO 304 Method i 2020-01-18 2020-01-20 Inpatient DINAKAR, [facility] [id number] Beauty 00:00:00 00:00:00 PIERCE 881 Method i 2020-01-07 2020-01-11 Inpatient YORK, [facility] [id number] Beauty 00:00:00 00:00:00 HERIBERTO 087 Method i 2019-12-29 2019-12-29 Out[facility] [id number] [facility] 07:03:00 07:03:00 [employer] [facility] ent [facility] 2019-12-23 2019-12-25 Inpatient TING [facility] [id number] Beauty 00:00:00 00:00:00 PIERSON, 540 Method i BAYLEE 2019-12-23 2019-12-23 Outpatient JACQUELIN, [facility] [id number] Beauty 00:00:00 00:00:00 AHMED 960 Method i 2019-12-22 2019-12-22 Office [facility] [id number] 14:08:03 14:56:41 Visit [facility] [id number] Surgical [id number] Specialti [id number] es 198 [place] 2019-10-12 2019-10-15 Inpatient YORK, [facility] [id number] Beauty 00:00:00 00:00:00 HERIBERTO 906 Method i 2019-09-01 2019-09-03 Inpatient YORK, [facility] [id number] Beauty 00:00:00 00:00:00 HERIBERTO 637 Method i 2019-07-20 2019-07-20 [facility] [id number] [facility] 14:02:00 14:02:00 [place] [address] [place] [address] - Drive [facility] l Medicine Outpati ent Clinics 2019-07-16 2019-07-16 [facility] [id number] [facility] 13:15:00 13:15:00 t [place] [employer] [facility] - Drive [facility] Medicine l Medicine Outpati ent Clinics 2019-06-16 2019-06-18 Inpatient YORK, [facility] [id number] Beauty 00:00:00 00:00:00 HERIBERTO [address] 2019-05-07 2019-05-08 Outpatient DARCY, UMAR [facility] [id number] Beauty 00:00:00 00:00:[address] 2019-04-23 2019-04-23 Outpatient GALATI, [facility] [id number] Beauty 00:00:00 00:00:00 CALOS [address] 2019-04-23 2019-04-23 Outpatient JACQUELIN, [facility] [id number] [employer] 00:00:00 00:00:00 AHMED [address] 2019-04-15 2019-04-15 [facility] [id number] [address] 14:19:00 14:19:00 t [place] [employer] [facility] - Drive [facility] Medicine l Medicine Outpati ent Clinics 2019-04-09 2019-04-09 [facility] [id number] [facility] 14:00:00 14:00:00 t [place] [employer] [facility] - Drive [facility] l Medicine Outpati ent Clinics 2018-09-09 2018-09-09 [facility] [id number] [facility] 14:45:00 14:45:00 t [place] [employer] s - Drive [facility] l Medicine Outpati ent Clinics 2018-04-15 2018-04-15 [facility] [id number] [facility] 12:02:00 12:02:00 t [place] [employer] [facility] - Drive [facility] l Medicine Outpati ent Clinics 2018-02-19 2018-02-19 [facility] [id number] [facility] [address] 15:08:00 15:08:00 t [place] [employer] [facility] - Drive [facility] 2018-01-24 2018-01-24 [facility] [id number] [facility] [address] 11:15:00 11:15:00 t [employer] [facility] ent [facility] Results Test Description Test Time Test Comments Results Result Comments Source COVID-19 qualitative PCR 2020-11-02 21:10:48 Test Item Value Reference Range Interpretation Comme nts Interpretation (test code = Negative results do not [id number]) preclude 2019-nCoV infection and should not be used as the sole basis for treatment or other patient management decisions. Negative results must be combined with clinical observations, patient history, and epidemiological information. COVID-19 qualitative PCR Not-Detected Not-Detected result (test code = 90134-5) COVID-19 qualitative PCR See link below for PDF Lab Case Number: (test code = 7070) Report [id number] 978 [facility] Inc [id number] 18:06:06Hm Interface, Radiology Results 11/02/2020 6:09 PM CDT EXAMINATION: XR ABDOMEN ACUTE INC CHEST 1VCLINICAL HISTORY: G25.2 Other specified forms of tremor, Cough persistentCOMPARISON: Chest x-ray 10/23/2020IMPRESSION:Single frontal view of the chest reveals stable prominence of cardiac silhouette. Pulmonary vasculature has slightly improved. Lung volumes remain decreased although without a consolidative process. Pleural marginsare sharp. Remainder of the examination is unchanged.Frontal views of the abdomen reveal a nonspecific bowel gas pattern. TIPS stent in place. Also status post cholecystectomy and herniorrhaphy. No abno rmal masses are readily identified. Presumed pelvic phleboliths are seen. Remainder of the examination is unremarkable.[facility]-[id number] Hospitals of [facility] Brain Spect W I 123 [id number] 16:54:45Hm Interface, Radiology Results 10/27/2020 4:57 PM CDT Procedure: NM BRAIN SPECT W I 123 DATSCANClinical History: G25.2 Other specified forms of tremor, G25.2 Comparison: No relevant imaging available for comparison.Technique: The patient was given 3 drops of Lugol's solution orally to protect the thyroid. The patient was theninjected with 5 mCi of X-325-UnDngsy intravenously. SPECT imaging of the brain was performed approximately 4 hours later.Findings:Normal uptake bilaterally in the caudate and putamen. Impression:NormalDaTscan. No evidence of a neurodegenerative parkinsonian syndrome.[facility]-[id number] MethodistXR Chest 1 Vw Portable 2020-10-23 19:20:20 Interface, Radiology Results Incoming - 10/23/2020 7:23 PM CDT EXAMINATION: XR CHEST 1 VW PORTABLECLINICAL HISTORY: Acute shortness of breathCOMPARISON: 08/31/2020FINDINGS: Patient body habitus, respiratory motion and poor inspiration limit evaluation. The heart appears mildly enlarged. There is vascular congestion but without overt edema. No definite focal pneumonia is seen. Minimal infiltrate is difficult to rule out. No effusion is seen. The chest overall appears similar to previous.IMPRESSION: No definite adverse changeLOUIS STOKES C[facility]AND [facility]-[id number] Beauty MethodistECG 12 [id number] 21:10:53 Test Item Value Reference Range Interpretation Comments Ventricular rate (test 92 code = 253) Atrial rate (test code 92 = 255) OR interval (test code 152 = 266) QRSD interval (test 78 code = 260) QT interval (test code 362 = 264) QTC interval (test code 447 = 265) P axis 1 (test code = 35 267) QRS axis 1 (test code = 10 268) T wave axis (test code 14 = 270) EKG impression (test Normal sinus code = 273) rhythm-Cannot rule out Anterior infarct , age undetermined-Abnormal ECG-In automated comparison with ECG of 20-SEP-2020 06:08,-No significant change was found- Hayden MethodistCT Pelvis Wo [id number] 01:22:19Hm Interface, Radiology Results Incoming - 09/20/2020 1:25 AM CSTFormatting of this note might be di fferent from the original.EXAMINATION: CT PELVIS WO CONTRASTCLINICAL HISTORY: fall saccral coccyx painTECHNIQUE: Multi-detector computed axial tomography (CAT) of the pelvis was performed without IV iodinated contrast. Sagittal and coronal computerized reformatted images were created at a workstation and archived for additional review.DOSE REDUCTION: CT imaging was performed with iterative reconstruction technique and/or automated exposure control to reduce radiation dose.COMPARISON: August 08, 2020 CT abdomen and pelvisIMPRESSION:1.No sacrococcygeal fracture.2.No soft tissue hematoma.3.5.4cm right adnexal cyst unchanged from May 07, 2019. Consider pelvic ultrasound for further characterization.FINDINGS:Bones are normally mineralized. No fracture, malalignment, or suspicious lesion.Mild lower lumbar facet arthropathy. No significant degenerative changes in the hips, SI joints, or s ymphysis pubis.5.4 cm right adnexal cyst unchanged from May 07, 2019. Pelvic ultrasound recommended for further characterization on a nonemergent basis.Uterus, left ovary, and urinary bladder areunremarkable.Surgical staple line at the ileocecal junction. No dilated small or large bowel.No adenopathy, free fluid, or fluid collection.Status-post abdominal hernia repair with mesh.[facility] Cervical Spine Wo Cijlqlxc9445-90-64 00:53:43Hm Interface, Radiology Results 09/20/2020 12:56 AM CST EXAMINATION: CT CERVICAL SPINE WO CONTRASTCLINICAL HISTORY: falls confusionCOMPARISON: NoneFINDINGS:Fractures:None.Craniocervical junction: Patent foramen magnum. No Chiari 1 malformation.Alignment:Normal lordosis.No scoliosis.Soft tissues: No abnormalities.Vertebrae:No infection or neoplasm .Degenerative changes:Decreased intervertebral space throughout the cervical spine. Central disc osteophyte complex from C3 through C6 results in mild canal stenosis. Degenerative fora garret narrowing, moderate right at C3-4, moderate to severe bilateral at C4-5, severe right and moderate left at C5-6, moderate bilateral at C6-7.Incidental findings:None.IMPRESSION:1. No acute abnormalities.2. Cannot exclude ligament, spinal cord and/or vascular abnormalities on the basis of this examination. [facility] Head Wo [id number] 00:52:11Hm Interface, Radiology Results 09/20/2020 12:55 AM CSTFormatting of this note might be di fferent from the original.EXAMINATION: CT HEAD WO CONTRASTCOMPARISON: AugustLINICAL HISTORY falls confusion. TECHNIQUE: Non-contrast CT scan of the head with thin-section contiguous transaxialimages from the skull base to the vertex. CT scans are performed using radiation dose reduction techniques. Technical factors are evaluated and adjusted to ensure appropriate moderation of exposure. Automated dose management technology is applied to adjust radiation exposure while achieving a highly diagnostic quality image.FINDINGS:Nonenhanced emergency cranial CT was performed at approximately 0023hours.The ventricular system and subarachnoid spaces are mildly dilated.There is no definite acute ed anmol or hemorrhage or midline shift or extra-axial lesion.Bone settings demonstrate the calvarium to be intact. There is a mucous retention cyst in the right maxillary sinus.There are no significant interval changesIMPRESSION:No significant acute abnormalities or interval changesMild age-appropriate inv olutional changesNORTHWEST MEDICAL [id number] JayeshistUrine [id number] 22:41:53 Test Item Value Reference Range Interpretation Comments Urine culture (test SEE COMMENT Bacteriu yuki screen code = 5247264) negative. [facility] CenterCRITICAL [id number] 22:05:41Robby Perez MD 09/22/2020 1:29 AMCritical CarePerformed by: Bonny Rod PAAutho rized by: Robby Perez MD Critical care provider statement: Critical care time (minutes): 35 Critical care time was exclusive of: Separately billable procedures and treating other patients Critical care was necessary to treat or prevent imminent or life-threatening deterioration of the following conditions: hypokalemia. Critical care was time spent personally by me on the following activities: Blood draw for specimens, development of treatment plan with patient or surrogate, discussions with consultants, discussions with primary provider, evaluation of patient's response to treatment,examination of patient, review of old charts, re-evaluation of patient's condition, pulse oximetry, ordering and review of radiographic studies, ordering and review of laboratory studies and ordering and performing treatments and interventions Zion 'yes' if you are taking over critical care for this patient from another provider.: Toni MarquezXR Knee 3 Vw [id number] 20:14:56Hm Interface, Radiology Results 09/19/2020 8:18 PM CST EXAMINATION: XR KNEE 3 VW RIGHT, XR KNEE 3 VW LEFTCLINICAL HISTORY: fallCOMPARISON: Right knee x-ray October 12, 2019IMPRESSION:3 views of the right knee. 3 views of the left knee. Mineralization is normal. No acute fracture or dislocation. No erosions. No significant joint effusions. Overlying soft tissues unremarkable. Chronic healed fracture of the proximal left fibula.[facility]-[id number] MethodistXR Knee 3 Vw [id number] 20:14:56Hm Interface, Radiology Results 09/19/2020 8:18 PM CST EXAMINATION: XR KNEE 3 VW RIGHT, XR KNEE 3 VW LEFTCLINICAL HISTORY: fallCOMPARISON: Right knee x-ray October 12, 2019IMPRESSION:3 views of the right knee. 3 views of the left knee. Mineralization is normal. No acute fracture or dislocation. No erosions. No significant joint effusions. Overlying soft tissues unremarkable. Chronic healed fracture of the proximal left fibula.[facility]-[id number] [facility] Shoulder 2+ Vw [id number] 20:13:19Hm Interface, Radiology Results 09/19/2020 8:16 PM CST EXAMINATION: XR SHOULDER 2 VW RIGHTCLINICAL HISTORY: fallCOMPARISON: None.IMPRESSION:3 views of the right shoulder. Mineralization is normal. No acute fracture or dislocation. No erosions. Overlying soft tissues unremarkableNORTHWEST MEDICAL [id number] Medical Center Pelvis 1 Or 2 [id number] 15:53:17Hm Interface, Radiology Results 08/31/2020 3:56 PM CST EXAMINATION: XR PELVIS 1 OR 2 VWCLINICAL HISTORY: Pelvic traumaCOMPARISON: CT abdomen pelvis 08/08/2020IMPRESSION:1.Femoral heads are seated well within the acetabula with mild bilateral hip joint osteoarthritis. No acute fracture. Normal osseous mineralization.2.Mild bilateral sacroiliac joint osteoarthritis and pubic symphysis degenerative changes. Metallic mesh hernia coils overlie the abdomen.Beauty [facility]gila [facility] medical centerCT Chest Wo [id number] 18:17:19Hm Interface, Radiology Results Incoming - 08/12/2020 6:20 PM CST EXAMINATION: CT CHEST WO CONTRASTCLINICAL HISTORY: COVID-19TECHNIQUE: Axial images of the chest were obtained without intravenous contrast. The lack of intravenous contrast re duces the sensitivity of the exam and evaluating vasculature. CT imaging was performed with iterative reconstruction technique and/or automated exposure control to reduce radiation dose.COMPARISON: 04/25/2018 and most recent chest x- rayIMPRESSION:CHEST:1. Aorta: The thoracic aorta is nonaneurysmal2. Heart: The heart is normal in size.3. Pericardial Fluid: No pericardial effusion.4. Mediastinum: No enlarged nodes or mass.5. Airways: Central airways are patent.6. Lungs: Minimal posterior dependent scarring or atelectasis. No CT scan findings to suggest COVID-19 pneumonia or acute infiltrate.7. Pleural Fluid: No pleural effusions.8. Bones: Osseous structures intact. No destructive bony lesions.9. Upper Abdomen: Cirrhosis. Portal hypertension with splenomegaly. TIPS shunt.10. Other Findings: NoneSUMMARY:1.No acute findings in the chest. No CT evidence of COVID-19 pneumonia.2.Cirrhosis, portal hypertension, TIPS shunt and splenomegaly.[facility]-[id number] MethodistVENIPUNC NEED PHYS SKILL,DX OR RX 2020-08-11 16:29:06Samanta Ravi RN 08/11/2020 4:31 PMMidline Insertion [...] and verified: yes Test results available and pr operly labeled: yes Imaging studies available: yes Required blood products, implants, devices,and special equipment available: yes Site/side marked: yes Immediately prior to procedure, a time out was called: yes Patient identity confirmed: Verbally with patient, arm band and hospital-a ssigned identification numberPre-procedure details: Hand hygiene: Hand hygiene [...] to vein ratio: 43%MidLine Characteristics: Catheter Brand: Vizy midline External Catheter Length (cm): 0 Internal Catheter Length (cm): 15 Total Catheter Length (cm): 15 Catheter Lot Number: [id number] Catheter Expiration Date: 1Procedure details: Landmarks identified: [...] Blood Loss Amount: Less than 20 mLPost- procedure details: Post-procedure: Dressing applied Patient tolerance of procedure:Tolerated well, no immediate complicationsMethodist Hospital Renal Stone [id number] 18:31:00Hm Interface, Radiology Results Incoming - 08/08/2020 6:34 PM CST EXAMINATION: CT RENAL STONE PROTOCOLCLINICAL HISTORY: abdominal pain allergic to contrastTECHNIQUE: Multiple axial CT images of the abdomen and pelvis are obtained withoutthe use of intravenous contrast. Coronal and sagittal 3-D reconstructions are obtained.CT scans are performed using radiation dose reduction techniques. Technical factors are evaluated and adjusted toensure appropriate moderation of exposure. Automated dose management technology is applied to adjust radiation exposure while achieving a diagnostic quality image.COMPARISON: 05/30/2020FINDINGS:Abdomen:The evaluation of the solid organs is limited without the use of intravenous contrast.The visualized LOWER LUNG ZONES demonstrates minimal atelectasis at the lower lung bases.The LIVER does not haveany solid masses. There is no intrahepatic biliary dilatation. A TIPS catheter is present.The GALLBLADDER is absent..The PANCREAS does not demonstrate any masses.The SPLEEN is minimally enlarged and measures 13.6 [...] change. Moderate colonic fecal retention is present.IMPRESSION:1. T here is no focal bowel obstruction nor any dilated loops of bowel.2. There are changes of prior hernia repair with mesh placement.3. A TIPS catheter is seen within the liver. The liver has a nodular appearance. There are no masses seen on the noncontrast study.4. The spleen is minimally enlarged.5. The small bowel and colon do not have any focal inflammatory change.OPC-[id number] MethodistECG ED Preliminary Interpretation - Not an [id number] 17:56:48 Janelle Watts MD 08/08/2020 7:07 [facility] [place] Preliminary Interpretation - Not an OrderPerformed by: Janelle Watts MDAuthorized by: Janelle Watts MD ECG reviewed by ED Physician in the absence of a aerographer: yes Interpretation: Interpretation: normal Rate: ECG rate: 70 ECG rate assessment: normal Rhythm: Rhythm: sinus rhythm Ectopy: Ectopy: none QRS: QRS axis: Normal QRS intervals: NormalConduction: Conduction: normal ST segments: ST segments: NormalT waves: T waves: normalHouroslindale general hospital MethodistXR Chest 1 [id number] 12:40:22Hm Interface, Radiology Results [facility] - 07/04/2020 12:43 PM CSTFormatting of this note might be di fferent from the original.EXAMINATION: XR CHEST 1 VWCLINICAL HISTORY: SOBCOMPARISON: [facility]PRESSION:Lines: NoneLungs and pleura: No consolidations. No pleural effusion or pneumothorax.Heart and mediastinum: Stable appearance of cardiomediastinal silhouette. Bones: No suspicious osseous lesions. [id number]-[id number] MethodistXR Hand 3+ Vw [id number] 20:31:08Hm Interface, Radiology Results Incoming - 06/02/2020 8:34 PM CDT EXAMINATION: XR HAND 3 VW LEFTCLINICAL HISTORY: Fracture handCOMPARISON: None available.IMPRESSION: 1. The bones are mildly demineralized. 2. Subacute appearing extra-articular fracture of the left fifth metacarpal neck with dorsal apex angulation.3. Faint lucency through the distal radius could represent a nondisplaced fracture, correlation with point tenderness and advanced imaging as indicated.4. 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.[id number]_PS01 Beauty [facility]VENIPUNC NEED PHYS SKILL,DX OR [id number] 13:55:27LiJalen RN 06/01/2020 1:57 PMMidline Date/Time: 06/01/2020 1:55 [...] to vein ratio: 35MidLine Characteristics: Catheter Brand: HLR PropertiesA POWER MIDLINE External Catheter Length (cm): 0 Internal Catheter Length (cm): 11 Total Catheter Length (cm): 11 Catheter Lot Number: [id number] Catheter Expiration Date: 1Procedure details: Landmarks identified: [...] tolerance of procedure: Tolerated well, no immediate complicationsBeauty MethodistCT Abdomen Pelvis Wo [id number] 20:27:58Hm Interface, Radiology Results - 05/30/2020 8:[address] ABDOMEN PELVIS WO CONTRASTCLINICAL INDICATION: Abd pain unspecifiedTECHNIQUE: Multidetector CT of the abdomen and pelvis was performed without intravenous administration of iodinated contrast with multiplanar reformats.CT scans are performed using radiation dose reduction techniques (iterative reconstruction and/or automated exposure control). Technical factors are evaluated and adjusted to ensure appropriate moderation of exposure. Automated dose management technologyis applied to adjust radiation exposure while achieving a diagnostic quality image.COMPARISON: CT 04/13/2020. FINDINGS:Evaluation of abdominopelvic contents limited due to lack of IV contrast.Lung bases: Dependent subsegmental atelectasis/scarring.Liver: Chronic liver disease. TIPS catheter present.Gallbladder and biliary: The gallbladder is absent. Clips within the gallbladder fossa. Common bile duct is not dilated. Pancreas: Normal.Spleen: Enlarged up to 13.5 cm.Gastrointestinal: Large and small bowel are normal in caliber. Appendix not visualized.Adrenals: Normal. Kidneys and ureters: 1 mm calculus in midpole of right kidney. 2 mm calculus in midpole of left kidney. No ureteral calculi. Nohydronephrosis. Left renal cyst measuring 4.3 cm, stable.Urinary [...] Mild splenomegaly.Nonobstructive bilateral nephrolithiasis. Stable right adnexal cyst.[facility]-[id number] Regional Medical Center Brain & Orbit W Wo Contrast 2020-05-27 17:55:04Hm Interface, Radiology Results 05/27/2020 5:58 PM CDT EXAM: MRI BRAIN & ORBIT W WO CONTRASTCLINICAL [...] or leptomeningeal enhancement. No acute intracranial hemorrhage, mass, hydrocephalus, or extra-axial fluid collection identified.Although this [...] clear. Mastoid air cells are normally pneumatized. IMPRESSION:No acute intracranial abnormality identified. There is no enhancing lesion in the brain. Orbits are unremarkable in appearance.[id number] JayeshistXR Abdomen 1 Vw [id number] 18:59:53Hm Interface, Radiology Results 05/16/2020 7:02 PM CDT EXAMINATION: XR ABDOMEN 1 VW PORTABLEINDICATION: Abd pain unspecified, generalzied abdominal pain rule out constipationCOMPARISON: February 19, 2020IMPRESSION:Nonobstructive bowel gas pattern. Colonic stool burden is within normal limits.Prior ventral hernia repair. TIPS in place. Prior cholecystectomy.[id number]_PS01Catracho Mcconnellist CRITICAL [id number] 15:22:15Vamsi Johnson MD 05/13/2020 5:45 PMCritical CarePerformed by: [...] treatments and interventions, ordering and review of l aboratory studies, ordering and review of radiographic studies, pulse oximetry, re-evaluation of patient's condition, review of old charts, discussions with consultants and discussions with primary provider Zion 'yes' if you are taking over critical care for this patient from another provider.: Toni Marquez MRI Brain Wo [id number] 22:35:58Hm Interface, Radiology Results 03/18/2020 10:39 PM CDT EXAMINATION: MRI BRAIN WO CONTRASTCLINICAL HISTORY: tremorsCOMPARISON: MRI brain 01/10/2020.TECHNIQUE: Multiplanar and [...] thalami, midbrain, janette and cervicomedullary junction are unremarkable. The ventricles [...] ear cavities are clear.IMPRESSION:No acute intracranial abnormality identified.[facility]-[id number] MethodistCv stress [id number] 05:27:49 Test Item Value Reference Range Interpretation Comments Resting HR (test code 65 = 5737979998) Resting BP (test code 124&62 = 7436030402) Peak MET Achieved 1 (test code = 9872268292) Protocol Name (test DOBUT/ECHO code = 7501080532) Time in Exercise 00:15:00 Phase (test code = 7444416290) Max Systolic BP (test 182 code = 9842611969) Max Diastolic BP 69 (test code = 9286859589) Max Heart Rate (test 137 code = 1853984353) Max Predicted Heart 162 Rate (test code = 4277942258) Target HR Formula (220 - Age)*100% (test code = 0468957899) Test Indication (test LIVER TRANSPLANT code = 2869677382) Arrhy During Ex (test code = 4939665377) ECG Interp Before EX (test code = 0672941246) ECG Interp During Ex (test code = 1481150936) Ex Summary Comment (test code = 4010292626) Overall HR Response to Exercise (test code = 8585684869) Overall BP Response To Exercise (test code = 9204169527) Reason for Protocol Complete Termination (test code = 6738824122) Stress Test -Waveform interpreted in Impression (test code report associated with = 4058128210) image study. No interpretation is provided as part of this Stress ECG report.-Electronically Signed By Owen FRANKLIN, Scott Wiseman ([id number]), material expeditor Marisol Hicks ([id number]) on 03/15/2020 5:27:46 AM Beauty Methodgila regional medical centerTransthoracic Echocardiogram Stress, (w Doppler, w Contrast if needed)2020-03-14 14:03:00Interface, Radiology Results In - 03/14/2020 2:03 PM CDT Stress Echocardiography Report [address], [place], [place] [address] Stress ECG tracings are available in [email or web address], [employer] and [employer] All ECG interpretations are included in this report Pat.Name: SUDARSHAN GREGORY Pat.ID: [id number] St.Date: 03/14/2020 Refer.MD: ANGELA ROPER MD Exam Time: 10:00:00 AM Study Type:Stress Echo Height: 59in Weight: 200lb BSA:1.85 m2 Age: 11 1960,59Y Sex: FEMALE BP: 124/62 HR: 62 bpm Sonogrphr: Janelle Mills RDCS, RVTPat. Stat.:Outpatient Room: [facility] 16 Study Status:Final Echo Event ID:[id number] Order ID: [id number] Reason for Study:Liver transplant candidate History / Clinical:Edema, CirrhosisProcedures: Intravenous Definity Contrast, Stress Echo/Dobutamine andColorflow DopplerRace: C -------SUMMARY: Overall Stress Interp: Normal Stress echo. No evidence of ischemia at 84% of maximal predicated HR.Normal dobutamine stress echocardiogram despiteachieving only 84% ofmaximum predicted heart rate. Rate-pressure product sufficient [id number].--------- FINDINGS: Resting FindingsLV: LVsize is normal. LV EF is normal. Overall [...] is hyperdynamic. Estimated EF is >70%. STRESS: -------Baseline Vital Signs: Intervention DobutamineECG Normal sinus Peak Dose 40 mcg/kg/minHR 62 Atropine 0.75Rest BP: 124/62 Duration 16:00Stress Test Results:Max HR 136 Contrast Definity 2 mlTarget HR 162 % Target: 84 % MaxBP 168/72 O2 Sat 96 %Max RPP 19665 Symptoms and Complications:Arrhythmias PVCsReason for Stopping Test: [...] (85%) for age and sexof our normal population YANY SUREMENTS: 2DParasternal Long [place] Ao An 1.8 cm LVPWd 0.7 cm [...] 2.9 l/m/m2 Signed 03/14/2020 02:03 Ernesto Segura MethodistXR Foot 3+ Vw [id number] 21:41:47Hm Interface, Radiology Results 01/18/2020 9:44 PM CDT EXAMINATION: XR FOOT 3 VW RIGHTCLINICAL HISTORY: fall distal bruising and swellingCOMPARISON: January [...] spur. 3. No focal soft tissue abnormality. [facility]-XZ75MCLQZnrggwg MethodistXR Foot 2 Vw [id number] 19:24:20Hm Interface, Radiology Results 01/10/2020 7:27 PM CDT EXAMINATION: XR FOOT 2 VW RIGHTHISTORY: 59 years Female Foot pain chronic etiol unknown initial examCOMPARISON: Right foot radiographs from 10/12/2019.FINDINGS: The alignment of the included bones is normal. No fracture or dislocation is identified in the right foot. There are tiny enthesophytes at the plantar insertion of the calcaneus. There is mild to space narrowingat the first MTP joint and in the interphalangeal joints of the second through fifth digits. The soft tissues are unremarkable.IMPRESSION: 1.No fracture or dislocation is identified in the right foot.2.Tiny enthesophytes at the plantar insertion of the calcaneus.3.Mild degenerative changes of the first MTP joint and in the interphalangeal joints of the second through fifth digits.[facility] [facility][id number] MethodistCt cardiac calcium [id number] 14:07:00Interface, Radiology Results In - 12/28/2019 10:28 AM CDT Nuclear Cardiology and CardiacCT [address] [place] [address] CT Calcium Scoring ReportPat.Name: SUDARSHAN GREGORY Pat.ID: [id number] .Date: 12/25/2019 Refer.MD: ANGELA ROPER MD Exam Time: 1:10:00 PM Study Type:CT Calcium Scoring Height: 59in Weight: 195lb BSA: 1.83 m2 DOBAge: 1960,59Y Sex: FEMALE HR: 152 bpm Nuclear Tech:SHARA Ramírez)(CT)Pat. Stat.:Inpatient Nuclear Event ID:[id number] Order ID: [id number] Reason for Study:Liver Transplant CandidateProcedures: CT Flash Mode Race: C SUMMARY:---- Technique: Sequential 3mm CT cuts were obtained through the chest using [facility] CT scanner with ECG gating. Interactive imageviewing and volumetric display and analysis were also performed. TheCAC score was quantified using the Agatston scoring method.Non- contrast cardiac CT results are as follows:The total Coronary Artery Calcium Score (CACS) is 0 (ZERO).The non-contrast CT shows a normal cardiac size, no pericardialabnormalities, a normal aortic root of 2.9cm, a normal ascendingthoracic aorta of 3.0cm and a normal descending thoracic aorta of2.5c m. The left main and right coronary arteries appear to originatenormally from the left and right sinus of Valsalva. The right coronary artery is dominant.Non-Cardiac Findings: Hepatobiliar stent . High density material seenin spleen . ( suggestive of TIP procedure ) Conclusion:Normal non-contrast c ardiac CT. The coronary artery calcium scoreindicates no significant coronary atherosclerosis and a <0.3% risk peryear of a major cardiac event. A CACS of zero is observed in 68% ofwomen at age 58 years.Recommendations:(1) Continue primary preventative strategies. ---FINDINGS: Signed 12/25/2019 2:07:00 PMSu Rogelio Clemente MDProgress West Hospitalbrandon [facility] NEED [facility]YS SK[facility],DX OR [id number] 14:11:08Samanta Ravi RN 12/24/2019 2:12 PMMidlineDate/Time: 12/24/2019 2:11 PMPerformed by: Samanta Ravi, RNAuthorized by: Baylee Girard MD Consent: Consent obtained: Verbal Consent given by: Patient Risks discussed: arterial puncture, incorrect placement, nerve damage, bleeding, infec tion, superficial thrombus and deep vein thrombus Alternatives [...] identification numberPre-procedure details: Hand hygiene: Hand hygiene p erformed prior to insertion Sterile barrier technique: All [...] to vein ratio: 43%Line Characteristics: Catheter Brand: Vizy midline External Catheter Length (cm): 0 InternalCatheter Length (cm): 12 Total Catheter Length (cm): 12 Catheter Lot Number: [id number] Catheter Expiration Date: 1Procedure Details: Landmarks identified: [...] placed utlizing ultrasound-guided Modified Seldinger Technique: Yes D ressing/Securement: Catheter securement device and antimicrobial dressing applied Blood Loss Amount: Less than 20 mLPost-Procedure Details: Post- procedure: Dressing applied Patient tolerance of procedure: Tolerated well, no immediate complicationsCatracho Marquez
[2020-11-17] MEDS ORDERED: LACTULOSE 20 GM/30 ML UCUP ONE (22:56)
[2020-11-17 23:51] LABS: Absolute Lymphocytes (CBC) 1.3 K/uL (0.7-4.9); Basophils % 0.9 % (0-1.3); Hematocrit 29.9 % (36.0-45.0); Lymphocytes % 22.4 % (15.3-44.8); MPV 8.7 fL (7.6-11.3); RBC Red Blood Cell Count 3.61 M/uL (3.86-4.86)
[2020-11-18] MEDS ORDERED: ONDANSETRON 4 MG/2 ML VIAL ONE (00:08)
[2020-11-18 00:09] LABS: Bilirubin Direct 0.3 mg/dL (0-0.2); Bilirubin Total 0.9 mg/dL (0.2-1.0); Potassium 3.6 mmol/L (3.5-5.1); Protein, Total 6.7 g/dL (6.4-8.2)
[2020-11-18] MEDS ORDERED: METOCLOPRAMIDE 10 MG/2mL INJ ONE (00:51)
[2020-11-18] MEDS ORDERED: DIPHENHYDRAMINE 50 MG/ML VIAL ONE (00:51)
[2020-11-18] MEDS ORDERED: NA CHLORIDE 0.9% 1,000 ML ONE (00:52)
--- NOTE | 2020-11-18 00:53 | EDPHYS ---
Physician Documentation [facility] Name: Bella Barron Age: 60 yrs Sex: Female : 1960 Arrival Date: 11/17/2020 Time: 21:38 Bed 8 Private MD: ED Physician Ny Philip HPI: 11/18 00:40 This 60 yrs old Female presents to ER via Ambulatory with complaints of ma2 Increased Ammonia Levels. 00:40 Onset: The symptoms/episode began/occurred gradually, 2 day(s) ago. Associated signs ma2 and symptoms: Pertinent positives: Pertinent negatives: anorexia, diarrhea, dysuria, flatulence, GI bleeding. Severity of symptoms: At their worst the symptoms were moderate in the emergency department the symptoms are unchanged. The patient has experienced similar episodes in the past. patient states she feels her ammonia is elevated because she has been sleepy at home. . Historical: - Allergies: 11/17 21:59 Iodine; em 21:59 Phenergan; em 21:59 Rocephin; em - PMHx: 21:59 Cirrhosis; Colitis; Crohn's; Depression; Liver disease; needs kidney and liver em transplant; ocd; - PSHx: 21:59 TIPS; Cholecystectomy; ; em - Immunization history:: Adult Immunizations up to date. - Social history:: Smoking status: Patient denies any tobacco usage or history of. Patient/guardian denies using alcohol, street drugs, The patient lives with family. - Family history:: not pertinent. ROS: 11/18 00:40 Constitutional: Negative for fever, chills, and weight loss. ma2 All other systems are negative. Exam: 00:40 Constitutional: This is a well developed, well nourished patient who is awake, alert, ma2 and in no acute distress. Head/Face: Normocephalic, atraumatic. Eyes: Pupils equal round and reactive to light, extra-ocular motions intact. Lids and lashes normal. Conjunctiva and sclera are non-icteric and not injected. Cornea within normal limits. Periorbital areas with no swelling, redness, or edema. ENT: Nares patent. No nasal discharge, no septal abnormalities noted. Tympanic membranes are normal and external auditory canals are clear. Oropharynx with no redness, swelling, or masses, exudates, or evidence of obstruction, uvula midline. Mucous membranes moist. Neck: Trachea midline, no thyromegaly or masses palpated, and no cervical lymphadenopathy. Supple, full range of motion without nuchal rigidity, or vertebral point tenderness. No Meningismus. Chest/axilla: Normal chest wall appearance and motion. Nontender with no deformity. No lesions are appreciated. Cardiovascular: Regular rate and rhythm with a normal S1 and S2. No gallops, murmurs, or rubs. Normal PMI, no JVD. No pulse deficits. Respiratory: Lungs have equal breath sounds bilaterally, clear to auscultation and percussion. No rales, rhonchi or wheezes noted. No increased work of breathing, no retractions or nasal flaring. Abdomen/GI: Soft, non-tender, with normal bowel sounds. No distension or tympany. No guarding or rebound. No evidence of tenderness throughout. Skin: Warm, dry with normal turgor. Normal color with no rashes, no lesions, and no evidence of cellulitis. MS/ Extremity: Pulses equal, no cyanosis. Neurovascular intact. Full, normal range of motion. Neuro: Awake and alert, GCS 15, oriented to person, place, time, and situation. Cranial nerves II-XII grossly intact. Motor strength 5/5 in all extremities. Sensory grossly intact. Cerebellar exam normal. Normal gait. Vital Signs: 11/17 21:56 BP 130 / 84; Pulse 65; Resp 18; Temp 98.4; Pulse Ox 100% on R/A; Weight 97.07 kg (R); em Height 4 ft. 11 in. (149.86 cm); Pain 10/10; 11/18 00:00 BP 135 / 89; Pulse 60; Resp 17; Pulse Ox 98% ; rr5 00:44 BP 128 / 69; Pulse 69; Resp 17; Pulse Ox 98% ; rr5 01:08 BP 118 / 67; Pulse 72; Resp 19; Pulse Ox 98% ; rr5 11/17 21:56 Body Mass Index 43.22 (97.07 kg, 149.86 cm) em MDM: 11/17 22:28 Patient medically screened. ma2 11/18 00:49 Differential diagnosis: elevated ammonia and cld, no ams at this time, patient declined ma2 treatment in er. she does not want lactulose because it makes her vomit. she will only take kiristoluse, I offered zofran w lactulose since we do not have kristoluse. patient want a prescription of that and want to be discharged home. 00:49 Data reviewed: vital signs, nurses notes. Counseling: I had a detailed discussion with [facility] the patient and/or guardian regarding: the historical points, exam findings, and any diagnostic results supporting the discharge/admit diagnosis, the presence of at least one elevated blood pressure reading (>120/80) during this emergency department visit, the need for outpatient follow up. Response to treatment: the patient's symptoms have markedly improved after treatment. 00:53 ED course: patient states she has not been compliant on kristalose as she has been ma2 moving last 2 weeks . 11/17 22:24 Order name: Basic Metabolic Panel; Complete Time: 00:30 [facility] 11/17 22:24 Order name: CBC with Diff; Complete Time: 00:30 [facility] 11/17 22:24 Order name: Hepatic Function; Complete Time: 00:30 [facility] 11/17 22:24 Order name: Lipase; Complete Time: 00:30 [facility] 11/17 22:24 Order name: AMMONIA; Complete Time: 00:30 [facility] 11/17 22:24 Order name: IV Saline Lock; Complete Time: 00:07 [facility] 11/17 22:24 Order name: Labs collected and sent; Complete Time: 00:07 [facility] Administered Medications: 00:11 Not Given (Patient Refused): Lactulose 20 grams 30 ml PO once rr5 00:11 Not Given (Patient Refused): Zofran (Ondansetron) 4 mg IVP once; over 2 minutes rr5 00:34 Drug: NS 0.9% 500 ml Route: IV; Rate: 1 bolus; Site: left antecubital; ea 01:10 Follow up: Response: No adverse reaction; IV Status: Completed infusion; IV Intake: rr5 500ml 00:34 Drug: Reglan 10 mg Route: IVP; Site: left antecubital; ea 01:10 Follow up: Response: No adverse reaction rr5 00:34 Drug: Benadryl (diphenhydrAMINE) 25 mg Route: IVP; Site: left antecubital; ea 01:10 Follow up: Response: No adverse reaction rr5 Disposition: 11/18/20 00:52 Discharged to Home. Impression: Other cirrhosis of liver. - Condition is Stable. - Discharge Instructions: Liver Failure. - Prescriptions for Kristalose 20 gram Oral packet - take 2 packet by ORAL route once daily for 15 days; 20 packet. - Medication Reconciliation Form, Thank You Letter, Antibiotic Education, Prescription Opioid Use form. - Follow up: Private Physician; When: Tomorrow; Reason: Continuance of care. Signatures: Dispatcher [employer] Etienne Robledo, RN RN Natalia Kay RN RN ea Alzahri, Mohammad, MD MD ma2 Miguel Stark RN rr5 Corrections: (The following items were deleted from the chart) 01:29 00:52 11/18/2020 00:52 Discharged to Home. Impression: Other cirrhosis of liver. ea Condition is Stable. Forms are Medication Reconciliation Form, Thank You Letter, Antibiotic Education, Prescription Opioid Use. Follow up: Private Physician; When: Tomorrow; Reason: Continuance of care. ma2
--- NOTE | 2020-11-18 00:53 | ER ---
Nurse's Notes [facility] Name: Bella Barron Age: 60 yrs Sex: Female : 1960 Arrival Date: 11/17/2020 Time: 21:38 Bed 8 Private MD: Diagnosis: Other cirrhosis of liver Presentation: 11/17 21:56 Chief complaint: Patient states: hx of liver and kidney disease, reports ammonia levels em might be up because I am shaking, also reports she has been taking her lactulose, reports feeling "off". Coronavirus screen: Client denies travel out of the [place] in the last 14 days. Ebola Screen: Patient negative for fever greater than or equal to 101.5 degrees Fahrenheit, and additional compatible Ebola Virus Disease symptoms Patient denies exposure to infectious person. Patient denies travel to an Ebola-affected area in the 21 days before illness onset. No symptoms or risks identified at this time. Initial Sepsis Screen: Does the patient meet any 2 criteria? No. Patient's initial sepsis screen is negative. Does the patient have a suspected source of infection? No. Patient's initial sepsis screen is negative. Risk Assessment: Do you want to hurt yourself or someone else?. Onset of symptoms was November 17, 2020. 21:56 Method Of Arrival: Ambulatory em 21:56 Acuity: OLEG 3 em Historical: - Allergies: 21:59 Iodine; em 21:59 Phenergan; em 21:59 Rocephin; em - PMHx: 21:59 Cirrhosis; Colitis; Crohn's; Depression; Liver disease; needs kidney and liver em transplant; ocd; - PSHx: 21:59 TIPS; Cholecystectomy; ; em - Immunization history:: Adult Immunizations up to date. - Social history:: Smoking status: Patient denies any tobacco usage or history of. Patient/guardian denies using alcohol, street drugs, The patient lives with family. - Family history:: not pertinent. Screenin:59 Abuse screen: Denies threats or abuse. Denies injuries from another. Nutritional rr5 screening: No deficits noted. Tuberculosis screening: No symptoms or risk factors identified. Fall Risk IV access (20 points). Total Schaefer Fall Scale indicates No Risk (0-24 pts). Assessment: 22:57 General: Appears in no apparent distress. comfortable, Behavior is calm, cooperative, rr5 Reports feeling "off" and shaking. Pain: Denies pain. Neuro: Level of Consciousness is awake, alert, obeys commands, Oriented to person, place, time. Cardiovascular: Capillary refill < 3 seconds Patient's skin is warm and dry. Respiratory: Airway is patent Respiratory effort is even, unlabored, Respiratory pattern is regular, symmetrical. GI: Abdomen is round non-distended, Reports liver disease. : No signs and/or symptoms were reported regarding the genitourinary system. EENT: No signs and/or symptoms were reported regarding the EENT system. Derm: Skin is intact, is healthy with good turgor, Skin temperature is warm. Musculoskeletal: Circulation, motion, and sensation intact. Capillary refill < 3 seconds. 23:15 Reassessment: refused for lactulose medication she stated vomit whenever i am taking rr5 that medication. 11/18 00:11 Reassessment: patient refused for zofran and lactulose medication EDprovider aware. rr5 00:40 Reassessment: complaints of headache ED provider aware with order made and carried out. rr5 01:09 Reassessment: Patient appears in no apparent distress at this time. Patient is alert, rr5 oriented x 3, equal unlabored respirations, skin warm/dry/pink. discharge instruction given and explained without complaintsmade Patient states symptoms have improved. 01:28 Reassessment: Patient and/or family updated on plan of care and expected duration. Pain ea level reassessed. Patient is alert, oriented x 3, equal unlabored respirations, skin warm/dry/pink. Discharge instruction given to patient verbalized the understanding of instruction. Vital Signs: 11/17 21:56 BP 130 / 84; Pulse 65; Resp 18; Temp 98.4; Pulse Ox 100% on R/A; Weight 97.07 kg (R); em Height 4 ft. 11 in. (149.86 cm); Pain 10/10; 11/18 00:00 BP 135 / 89; Pulse 60; Resp 17; Pulse Ox 98% ; rr5 00:44 BP 128 / 69; Pulse 69; Resp 17; Pulse Ox 98% ; rr5 01:08 BP 118 / 67; Pulse 72; Resp 19; Pulse Ox 98% ; rr5 11/17 21:56 Body Mass Index 43.22 (97.07 kg, 149.86 cm) ED Course: 11/17 21:38 Patient arrived in ED. bp1 21:58 Triage completed. em 21:59 Arm band placed on. em 22:28 Ny Philip MD is Attending Physician. ector 22:47 Miguel Stark RN is Primary Nurse. rr5 22:59 Patient has correct armband on for positive identification. Placed in gown. Bed in low rr5 position. Call light in reach. Pulse ox on. NIBP on. 23:50 No provider procedures requiring assistance completed. Inserted saline lock: 22 gauge rr5 in left antecubital area, using aseptic technique. ,using aseptic technique. inserted by socorro Blood collected. 11/18 01:09 IV discontinued, intact, bleeding controlled, No redness/swelling at site. Pressure rr5 dressing applied. Administered Medications: 00:11 Not Given (Patient Refused): Lactulose 20 grams 30 ml PO once rr5 00:11 Not Given (Patient Refused): Zofran (Ondansetron) 4 mg IVP once; over 2 minutes rr5 00:34 Drug: NS 0.9% 500 ml Route: IV; Rate: 1 bolus; Site: left antecubital; ea 01:10 Follow up: Response: No adverse reaction; IV Status: Completed infusion; IV Intake: rr5 500ml 00:34 Drug: Reglan 10 mg Route: IVP; Site: left antecubital; ea 01:10 Follow up: Response: No adverse reaction rr5 00:34 Drug: Benadryl (diphenhydrAMINE) 25 mg Route: IVP; Site: left antecubital; ea 01:10 Follow up: Response: No adverse reaction rr5 Intake: 01:10 IV: 500ml; Total: 500ml. rr5 Outcome: 00:52 Discharge ordered by . ma2 01:09 Discharged to home ambulatory. rr5 01:09 Condition: stable 01:09 Discharge instructions given to patient, Instructed on discharge instructions, follow up and referral plans. medication usage, Demonstrated understanding of instructions, follow-up care, medications, Prescriptions given X 1. 01:29 Patient left the ED. ea Signatures: Etienne Mike RN RN em Antunez, Elena, RN RN ea Alzahri, Mohammad, MD MD ma2 Roque, Raymond RN RN rr5 Cindy Barton bp1
[2020-11-18 11:19] VITALS: TEMP 98.4
[2020-11-18 11:20] VITALS: O2SAT 98
[2020-11-18 11:23] VITALS: BP 118/67
== END 2020-11-18 01:29 | disposition home or self-care (01) ==
LOC: ER 21:33
DX: K74.69 Other cirrhosis of liver (principal); Z88.3 Allergy status to other anti-infective agents; Z88.8 Allergy status to other drugs, medicaments and biological substances; Z91.048 Other nonmedicinal substance allergy status
CPT/HCPCS: 96361; 85025; 80048; 36415; 82140; 80076; 83690; 96375; 96374; 99284; J2765; J1200; J7030; J2405

== ENCOUNTER 2020-12-15 20:29 | Observation (INO) | payer OTHER ==
--- OUTSIDE RECORDS SUMMARY | 2020-12-15 20:35 | XMS REPORT | Continuity of Care Document ---
:[address] [facility] t Address [address] [place] [address] Care Team Providers Name Role Phone Jose FRANKLIN S. Primary Care Physician Randal OLMOS Attending Clinician Unavailable Jesus Alberto Kovacs DO Attending Clinician Ting Pierson MD Attending Clinician Doni Levy MD Attending Clinician Jose FRANKLIN SLaurel Attending Clinician Curry Gutierrez DO Attending Clinician Chela FRANKLIN Attending Clinician Blayne Garcia MD Attending Clinician Gus Azevedo MD Attending Clinician Chris FRANKLIN Attending Clinician Davina FRANKLIN Attending Clinician Kortney Limon DO Attending Clinician Leslie Díaz MD Attending Clinician Brenda [facility] Attending Clinician Unavailable Meek Roper MD Attending Clinician Emerson Watts MD Attending Clinician Osorio OLMOS Attending Clinician Unavailable Mana FRANKLIN, Lyle Attending Clinician Alex FRANKLIN, Kush Attending Clinician Chelle FRANKLIN Attending Clinician Mikel Kaplan DO Attending Clinician Marie OLMOS Attending Clinician Unavailable Alex OLMOS Attending Clinician Unavailable Marbella FRANKLIN, Hardik Attending Clinician Armida GUAJARDO Attending Clinician Unavailable Liz OLMOS Attending Clinician Unavailable Barry FRANKLIN, Rickey Attending Clinician Michelle Rascon Attending Clinician Unavailable Harsh [facility] Attending Clinician Unavailable Rodolfo Soares MA Attending Clinician Unavailable Rodriguez Grubbs MD Attending Clinician Matthew Cleveland RN Attending Clinician Unavailable Stephanie GUAJARDO Attending Clinician Unavailable Reena Attending Clinician Unavailable Elham DUBOSE Attending Clinician Unavailable Netta GUAJARDO Attending Clinician Unavailable Bin Bangura MD Attending Clinician Abiodun GUAJARDO Attending Clinician Unavailable Daija HERRON S Attending Clinician DARCY Attending Clinician Unavailable TING PIERSON Admitting Clinician Unavailable CHELA Admitting Clinician Unavailable MAGDA Admitting Clinician Unavailable CHELLE Admitting Clinician Unavailable MARYBETH Admitting Clinician Unavailable ROLANDO Admitting Clinician Unavailable DARCY Admitting Clinician Unavailable Payers Payer Name Policy Type Policy Effective Date Expiration Date Sour ce Number MEDICAREMEDICARE PART [id number] 2015 Gucci Todd AND 00:00:00 Church [id number] [place] [id number] Nikki taylor 97920/08/2014-Present 00:00:00 Met dina wynn Problems Condition Condition Condition Status Onset Resolution Last Treating Co mments Source Name Details Category Date Date Treatment Clinician Date Acute Acute Disease Active 2019-08 [facility] cystitis cystitis 0-03 Method i without without 00:00: st hematuria hematuria 00 Hyperkalem Hyperkalem Disease Active 1 [place] ia ia 0-03 Methodi 00:00: st 00 Lymphedema Lymphedema Disease Active 2020-0 [place] 9-02 Methodi 00:00: st 00 Tremor of Tremor of Disease Active Nikki ston unknown unknown 8-06 Methodi origin origin 00:00: st 00 Weakness Weakness Disease Active 2019- [place] generalize generalize 6-08 [facility] d d 00:00: st 00 Confusion Confusion Disease Active 2019- Nikki ston 3-03 Methodi 00:00: st 00 Acute Acute Disease Active 2018-08 [facility] hepatic hepatic 1-05 Methodi encephalop encephalop 00:00: st athy athy 00 Slurred Slurred Disease Active [facility] speech speech 9 Methodi 00:00: st 00 CAM (acute CAM (acute Disease Active [facility] kidney kidney 05-08 Methodi injury) injury) 00:00: st 00 UTI UTI Disease Active [facility] (urinary (urinary 04-14 Method i tract tract 00:00: st infection) infection) 00 Altered Altered Disease Active [facility] mental mental 808 Methodi status, status, 00:00: st unspecifie unspecifie 00 d d Acute Acute Disease Active [facility] abdominal abdominal 4-03 Meth erasto pain pain 00:00: st 00 Weakness Weakness Disease Active 2019- [place] 1 Methodi 00:00: st 00 Chest pain Chest pain Disease Active 2019 [place] on 1 Methodi breathing breathing 00:00: st Non-intrac Non-intrac Disease Active [facility] table table 109 Methodi vomiting vomiting 00:00: st with with 00 nausea nausea Gastroesop Gastroesop Disease Active 2019 [facility] hageal hageal 1-09 Methodi reflux reflux 00:00: st disease disease 00 CAM (acute CAM (acute Disease Active 2019 [facility] kidney kidney 1- Methodi injury) injury) 00:00: st 00 Disorder Disorder Disease Active 2019- [place] of liver of liver 1-09 Method i 00:00: st 00 Liver Liver Disease Active 2017-08 [facility] cirrhosis cirrhosis 1-24 Meth erasto 00:00: st 00 Acute Acute Disease Active [facility] hepatic hepatic 2-24 Methodi encephalop encephalop 00:00: st athy athy 00 Hematochez Hematochez Disease Active [place] ia ia 12-11 Methodi 00:00: st 00 Melena Melena Disease Active Overview: [place] n 12-11 Formattin Methodi 00:00: g of this note might be different from the original. Added automatic ally from request for surgery [id number] Bipolar Bipolar Disease Active [facility] disorder, disorder, 2-28 Meth erasto unspecifie unspecifie 00:00: st d d 00 Persistent Persistent Disease [facility] depressive depressive 2-28 Me [facility] disorder disorder 00:00: st 00 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 09-12 Meth erasto of liver of liver 00:00: st 00 Hepatic Hepatic Disease Active 2015-08 [facility] encephalop encephalop 1-15 Me thodi athy athy 00:00: st 00 S/P TIPS S/P TIPS Disease Active [place] (transjugu (transjugu 05-08 Me odi lar lar 00:00: st intrahepat intrahepat 00 ic ic portosyste portosyste jacqueline shunt) jacqueline shunt) Thrombocyt Thrombocyt Disease Active [facility] openia openia 05-04 Methodi 00:00: st 00 Cirrhosis Cirrhosis Disease Active Nikki ston of liver of liver 05-04 Method i not due to not due to 00:00: st alcohol alcohol 00 Malnutriti Malnutriti Disease Active [facility] on on 05-04 Methodi 00:00: st 00 CAM (acute CAM (acute Disease Resolve 2020-08-13 2020-08-13 [facility] kidney kidney d 04-13 00:00:00 14:25:15 Method [...] n Reaction Available [facility] Iodine Adverse Active Info Not [facility] Reaction Available [facility] Family History Family Member Diagnosis Comments Start Date Stop Date Source Natural father No Known Problems [facility]ki brandon [facility] Natural mother No Known Problems Nikki taylor [facility] Social History Social Habit Start Date Stop Date Quantity Comments Source Exposure to Not sure Dell SARS-CoV-2 (event) Method ist Cigarettes smoked 2020-11-22 2020-11-22 Dell current (pack per 00:00:00 00:00:[address] day) - Reported Cigarette 2020-11-22 2020-11-22 Dell pack-years 00:00:00 00:00:00 Church Tobacco use and 2020-11-22 2020-11-22 Never used Dell exposure 00:00:00 00:00:00 Church Alcohol intake 2020-11-22 2020-11-22 Current Dell 00:00:00 00:00:00 non-drinker of Church alcohol (finding) History of tobacco 1976-08-12 2018-09-07 Current smoker Gucci yang use 00:00:00 00:00:00 Church Tobacco Comment 2016-09-12 2016-09-12 smokes 5 Dell 00:00:00 00:00:00 cigarettes per Church day Alcohol Comment 2016-05-02 2016-05-02 Former social [place] 00:00:00 00:00:00 alcohol use, quit Methodi st several years ago; denies history of heavy alcohol use Sex Ass[birth year] At [birth year] [facility] 00:00:00 00:00:00 [facility] Smoking Status Start Date Stop Date Source Former smoker 2020-11-22 00:00:00 2020-11-22 00:00:00 Catracho Marquez Medications Ordered Filled Start Stop Current Ordering Indication Dosage Frequency Signature Comments Components Source Medication Medication Date Date Medication? Clinician (SIG) Name Name cetirizine Yes 10mg QD Take 10 mg [place] (ZyrTEC) 10 4-14 by mouth Meth erasto MG tablet 16:26: every st 30 morning. cyanocobala Yes 1000ug Q30D Inject [place] min 1,000 4-14 1,000 mcg Metho di mcg/mL 16:26: into the st injection 30 shoulder, thigh, or buttocks every 30 (thirty) days. riFAXimin 0 Yes 550mg Q.5D Take 550 Nikki ston (XIFAXAN) 4-14 mg by Methodi 550 mg 16:26: mouth 2 st tablet 30 (two) times a day. ubrogepant 0 Yes 100mg Q.5D Take 100 [place] (Ubrelvy) 4-14 mg by Methodi 100 mg 16:26: mouth 2 st tablet 30 (two) times a day as needed (headache) . clonAZEPAM 0 Yes .5mg Q24H Take 0.5 Nkiki ston (KlonoPIN) 4-14 mg by Methodi 0.5 MG 16:26: mouth st tablet 30 daily as needed for anxiety. topiramate 0 Yes 50mg Q.5D Take 50 mg [place] (TOPAMAX) 4-14 by mouth 2 Meth erasto 50 MG 16:26: (two) st tablet 30 times a day. benztropine 0 Yes .5mg Q.5D Take 0.5 [place] (COGENTIN) 4-14 mg by Methodi 0.5 MG 16:26: mouth 2 st tablet 30 (two) times a day. thiamine 2020-0 Yes 100mg QD Take 100 [place] mononitrate 4-14 mg by Methodi , vit B1, 16:26: mouth st (B-1) 100 30 daily. mg tablet primidone 0 Yes 25mg Q.5D Take 25 mg [place] (MYSOLINE) 4-14 by mouth 2 Met hodi 50 MG 16:26: (two) st tablet 30 times a day. zinc 2020- No 220mg QD Take 1 [place] sulfate 3-15 [...] QD Take 1 mg [facility] (LUNESTA) 1 09-2110 by mouth Met hodi MG tablet 14:27: 00:[address] 44 :00 Take immediatel y before bedtime topiramate 2020- No 50mg Q.5D Take 50 mg [place] (TOPAMAX) 09-02 by mouth 2 Met hodi 50 MG 09:52: 00:00 (two) st tablet 36 :00 times a day. topiramate 2020- No 50mg QD Take 1 [place] (TOPAMAX) 09-0209 tablet (50 Met hodi 50 MG 00:00: [...] tablet 57 :00 times a day. suvorexant No 10mg QD Take 10 mg [place] [...] packet 57 :00 times a day. allopurinoL No 200mg QD Take 200 [place] (ZYLOPRIM) 08-13-02 mg by Methodi 100 MG 14:42: 00:[address] tablet 57 :00 daily. spironolact No 100mg QD Take 100 [place] one 08-13-02 mg by Methodi (ALDACTONE) 14:39: 00:[address] 100 MG 40 :00 daily. tablet potassium 20meq QD Take 20 Nikki ston chloride 08-13-02 mEq by Methodi (K-DUR) 20 14:39: 00:[address] MEQ CR 37 :00 every tablet morning. indomethaci No 50mg Q.5D Take 50 mg [place] n (INDOCIN) 08-13 by mouth 2 M ethodi 50 MG 14:39: 00:00 (two) st capsule 25 :00 times a day with meals. benztropine 2020- No .5mg Q.5D Take 0.5 [place] (COGENTIN) 08-13 01-02 mg by Methodi 0.5 MG 14:39: 00:[address] tablet 06 :00 (two) times a day. gabapentin 2020- No 600mg QD Take 600 [place] (NEURONTIN) 08-13 01-02 mg by Method i [...] 100mg QD Take 1 [place] (ZYLOPRIM) 102 01-02 tablet Method i 100 MG 00:00: 00:00 ([address] tablet 00 :00 total) by mouth daily for 30 days. gabapentin 2019-08 No 300mg QD Take 300 [place] [...] Take 1 [place] (LASIX) 40 0-23 -02 tablet (40 Me thodi mg tablet 00:00: [...] for 30 days. gabapentin 2029- No 300mg Q.[id number] Take 1 [place] (NEURONTIN) 04-21 [id number] capsule Methodi 300 mg 00:00: 23:59 3D ([address] capsule 00 :00 total) by mouth 3 (three) times a day for 30 days. potassium 2020-0 2020- No 20meq QD Take 1 [place] chloride 9-10 10-20 tablet (20 Meth erasto (K-DUR) 20 00:00: 00:00 mEq total) st MEQ CR 00 :00 by mouth tablet daily. clonAZEPAM 2020- No .5mg Q.5D Take 1 [place] (KlonoPIN) 9-10 10-10 tablet Method i 0.5 MG 00:00: 23:59 (0.[address] tablet 00 :00 total) by mouth 2 (two) times a day for 30 days. brexpiprazo 2020- No 2mg QD Take 2 mg [place] le 03-19 by mouth Methodi (REXULTI) 2 11:46: 00:[address] mg tablet 54 :00 tablet clonAZEPAM 2019- No .5mg Q.5D Take 1 [place] [...] a day for 30 days. gabapentin 2019- No Hypokalemia 600mg QD Take 1 [place] [...] 600 mg tablet in half pantoprazol 2019- 2020- No 40mg QD Take 40 mg [place] e 6-15 06-15 by mouth Methodi (PROTONIX) 11:47: 00:[address] 40 MG EC 55 :00 morning. tablet QUEtiapine 2019-2019- No 200mg QD Take 200 [place] [...] :00 (two) times a day. senna 2019- 2020- No 1{tbl} QD Take 1 [facility] [...] SUMAtriptan Yes Hypokalemia 50mg Q24H Take 1 [facility] (Imitrex) 01-24 tablet (50 Meth erasto 50 MG 00:00: mg total) st tablet 00 by mouth daily as needed for migraine for up to 30 doses. May repeat in 2 hours if unresolved . Max dose 200 mg/day pantoprazol 2020- No Hypokalemia 40mg QD Take 1 [facility] e 01-24 tablet (40 Methodi (PROTONIX) 00:00: 23:59 mg total) s t 40 MG EC 00 :00 by mouth tablet every morning. zinc 2020- No Hypokalemia 220mg Q.5D Take 1 [place] sulfate 01-24 capsule Methodi (ZINCATE) 00:00: 00:00 ([address] 220 (50) mg 00 :00 total) by capsule mouth 2 (two) times a day. methylnaltr 2020- No Hypokalemia 150mg Q24H Take 150 [facility] exone 01-24 mg by Methodi (Relistor) 00:00: 00:[address] 150 mg 00 :00 daily as tablet needed (constipat ion). Do not take this medication if you are no longer actively taking Tramadol. ondansetron 2020- No Hypokalemia 4mg Q6H Take 1 [facility] ODT 01-24 tablet (4 Methodi (ZOFRAN-ODT 00:00: 00:00 mg total) st ) 4 MG 00 :00 by mouth disintegrat every 6 ing tablet (six) hours as needed for nausea or vomiting. riFAXimin 2020- No Hypokalemia 550mg Q.5D Take 1 [facility] (XIFAXAN) 01-24 tablet Methodi 550 mg 00:00: 00:00 ([address] tablet 00 :00 total) by mouth 2 (two) times a day. magnesium 2019-0 2020- No Hypokalemia 400mg QD Take 1 [facility] oxide 01-24 10-20 tablet Methodi (MAG-OX) 00:00: 00:00 ([address] 400 mg 00 :00 total) by (241.3 mg mouth magnesium) daily. tablet senna 2019- 2020- No Hypokalemia 1{tbl} QD Take 1 [facility] (SENOKOT) 01-24 tablet by Meth erasto 8.6 mg 00:00: 00:[address] tablet 00 :00 every morning. furosemide 2019-0 2020- No Hypokalemia 40mg QD Take 1 [facility] (LASIX) 40 01-24 tablet (40 Me th[facility] mg tablet 00:00: 00:00 mg total) st 00 :00 by mouth every morning. lactulose 2019-0 2020- No Hypokalemia 20g Q.[id number] Take 1 [facility] (Kristalose 01-24 [id number] packet (20 Methodi ) 20 gram 00:00: 00:00 3D g total) st packet 00 :00 by mouth 3 (three) times a day. spironolact 2019-0 2020- No Hypokalemia 100mg QD Take 1 [facility] one 01-24 tablet Methodi (ALDACTONE) 00:00: 00:00 ([address] 100 MG 00 :00 total) by tablet mouth every morning. famotidine 2019-0 2020- No Hypokalemia 20mg Take 1 [facility] (Pepcid) 20 01-24 tablet (20 M ethodi MG tablet 00:00: 00:00 mg total) st 00 :00 by mouth daily. gabapentin 2019-0 2020- No Hypokalemia 600mg Q.5D Take 1 [facility] (NEURONTIN) 01-24 tablet Metho di 600 mg 00:00: 00:00 ([address] tablet 00 :00 total) by mouth 2 (two) times a day. potassium 2020-0 2020- No Hepatic 40meq QD Take 2 [place] chloride 01-24 encephalopa tablets Methodi (K-DUR) 20 00:00: 00:00 thy (HCC) ([address] MEQ CR 00 :00 total) by tablet mouth every morning. topiramate 2020-0 2020- No Hypokalemia 50mg QD Take 2 [place] (TOPAMAX) -24 01- tablets Method i 25 MG 00:00: 23:59 ([address] tablet 00 :00 total) by mouth nightly for 14 days. QUEtiapine 2019- No Hypokalemia 200mg QD Take 1 [place] (SEROquel) 01-24 tablet Method i 200 MG 00:00: 23:59 ([address] tablet 00 :00 total) by mouth nightly for 14 days. escitalopra 2019- No Hypokalemia 10mg QD Take 1 [place] (LEXAPRO) 01-24 tablet (10 M ethodi 10 [...] 600mg Q.5D Take 1 Nikki ston (NEURONTIN) 01-19 tablet Metho di 600 mg 00:00: 00:00 [...] 2019- 2020- No 1{dose} QD 1 Dose [facility] 5-14 05-14 nightly. Met hodi enthoL 09:45: 00:00 st (Active-Pac 22 :00 ) 300-4-1 mg-%-% kit,gel & capsule diphenhydrA 2019- Take 3 Nikki ston MINE 12-21-12 tablets Methodi (Benadryl 00:00: 00:[address] Allergy) 25 00 :00 before, mg tablet and take 3 tablets the day of famotidine No 20mg Take 1 [place] (Pepcid) 20 12-21-15 tablet (20 M ethodi MG tablet 00:00: 00:00 mg total) st 00 :00 by mouth daily. predniSONE No Take 2 [place] (DELTASONE) 12-21-15 tablets Meth erasto 20 mg 00:00: 00:[address] tablet 00 :00 before and 2 tablets the morning of test escitalopra 2018-08- No TAKE 1 Nikki ston m (LEXAPRO) 09-27 TABLET BY Me thodi 10 MG 00:00: 00:[address] tablet 00 :00 EVERY DAY furosemide 2018-08 No Awaiting 40mg QD Take 1 [facility] (LASIX) 40 09-21 liver tablet (40 M ethodi mg tablet 00:00: 00:00 transplant mg total) st 00 :00 by mouth every morning. zinc 2018-08 No Awaiting 220mg Q.5D Take 1 [place] sulfate 09-21 liver capsule Methodi (ZINCATE) 00:00: 00:00 transplant ([address] 220 (50) mg 00 :00 total) by capsule mouth 2 (two) times a day. potassium 2018-08- No Hypokalemia 40meq QD Take 2 [facility] chloride 08-23-15 tablets Methodi (K-DUR) 20 00:00: 00:00 ([address] MEQ CR 00 :00 total) by tablet mouth every morning. lactulose No Hepatic 20g Q.[id number] Take 1 [place] (KRISTALOSE 04-20 encephalopa [id number] packet (2 0 Methodi ) 20 gram 00:00: 00:00 thy (HCC) 3D g total) st packet 00 :00 by mouth 3 (three) times a day. SUMAtriptan 2020- No 50mg Q24H Take 1 Nikki ston (IMITREX) 02-13-15 tablet (50 Met hodi 50 MG 00:00: 00:00 mg total) st tablet 00 :00 by mouth daily as needed for migraine for up to 1 dose. May repeat in 2 hours if unresolved . Max dose 200 mg/day Allopurinol Allopurinol Yes Fernando 2 tablets [facility] Immunizations Ordered Immunization Filled Immunization Date Status Commen ts Source Name Name Influenza (IM) 2018-04-21 Completed [place] Preservative Free 00:00:[address] Pneumococcal 2016-05-08 Completed Catracho Conjugate 13-Valent 00:00:00 Metho dist FLUCELVAX QUAD PF 2016-05-08 Completed Dell 00:00:00 Church Vital Signs Vital Name Observation Time Observation Value Comments Source Systolic blood 2020-11-23 11:40:18 116 mm[Hg] Socorro langley Church pressure Diastolic blood 2020-11-23 11:40:18 74 mm[Hg] Mariel galvan Church pressure Heart rate 2020-11-23 11:40:18 82 /min Catracho Marquez Body temperature 2020-11-23 11:17:13 35.83 Georgette Alberta Marquez Respiratory rate 2020-11-23 11:17:13 20 /min Alberta Marquez Oxygen saturation in 2020-11-23 11:17:13 98 /min Catracho Marquez Arterial blood by Pulse oximetry Body height 2020-11-22 17:31:00 149.9 cm Catracho Marquez Body weight 2020-11-22 17:31:00 97.523 kg Catracho Marquez BMI 2020-11-22 17:31:00 43.42 kg/m2 Catracho Marquez Procedures Procedure Date / Time Performing Clinician Source Performed CBC HEMOGRAM 2020-11-23 00:55:00 Baylee Girard PROTHROMBIN TIME WITH INR 2020-11-23 00:55:00 Flaco Girard COMPREHENSIVE METABOLIC 2020-11-23 00:55:00 Saul Girard PANEL ESTIMATED GFR 2020-11-23 00:55:00 Baylee Girard Church COVID-19 QUALITATIVE PCR 2020-11-22 20:57:00 Wild Kovacsist Tomiwa LACTIC ACID, I-STAT 2020-11-22 20:40:[address] HEAD WO CONTRAST 2020-11-22 18:20:00 Romero Limon HC COMPLETE BLD COUNT 2020-11-22 17:53:00 Romero Limon n Church W/AUTO DIFF COMPREHENSIVE METABOLIC 2020-11-22 17:53:00 Romero Limon Church PANEL LACTIC ACID, I-STAT 2020-11-22 17:53:00 Romero Limon AMMONIA LEVEL 2020-11-22 17:53:00 Romero Limon Meth odist VENOUS BLOOD GAS 2020-11-22 17:53:00 Romero Limon Met hodist ESTIMATED GFR 2020-11-22 17:53:00 Romero Limon Meth odreema XR ABDOMEN ACUTE INC CHEST 2020-11-02 17:51:00 Agustín Levy 1V HC COMPLETE BLD COUNT 2020-11-02 16:55:00 Calos Garcia W/AUTO DIFF COMPREHENSIVE METABOLIC 2020-11-02 16:55:00 Calos Garcia Church PANEL PROTHROMBIN TIME WITH INR 2020-11-02 16:55:00 Calos Garcia ESTIMATED GFR 2020-11-02 16:55:00 Calos Garcia [facility] COVID-19 QUALITATIVE PCR 2020-11-02 16:05:00 Calos Garcia NM BRAIN SPECT W I 123 2020-10-26 14:02:00 Agustín Levy DATSCAN HC COMPLETE BLD COUNT 2020-10-24 05:15:00 Heriberto York on Church W/AUTO DIFF BASIC METABOLIC PANEL 2020-10-24 05:15:00 Heriberto York on Church HEPATIC FUNCTION PANEL 2020-10-24 05:15:00 Heriberto York MAGNESIUM LEVEL 2020-10-24 05:15:00 Heriberto York Met [...] DRUGS OF ABUSE 2020-10-24 05:00:00 Heriberto York Church SCREEN LACTIC ACID LEVEL, SEPSIS 2020-10-24 01:20:00 Heriberto York - NOW AND REPEAT 2X EVERY 3 HOURS LACTIC ACID LEVEL, SEPSIS 2020-10-23 21:25:00 Heriberto York - NOW AND REPEAT 2X EVERY 3 HOURS XR CHEST 1 VW PORTABLE 2020-10-23 19:08:00 [facility] BLOOD CULTURE, AEROBIC & 2020-10-23 18:31:00 [facility] cantu ANAEROBIC RESPIRATORY PATHOGEN PANEL 2020-10-23 18:31:00 [facility] WITH COVID-19 COMPREHENSIVE METABOLIC 2020-10-23 18:31:00 [facility] cantu PANEL PHOSPHORUS LEVEL 2020-10-23 18:31:00 Rehrer, Freedom Marquez MAGNESIUM LEVEL 2020-10-23 18:31:00 Rehrer, Freedom Marquez LACTIC ACID LEVEL, SEPSIS 2020-10-23 18:31:00 Heriberto York Church - NOW AND REPEAT 2X EVERY 3 HOURS LIPASE LEVEL 2020-10-23 18:31:00 Rehrer, Freedom Marquez ESTIMATED GFR 2020-10-23 18:31:00 Rehrer, Freedom Marquez HC COMPLETE BLD COUNT 2020-10-23 18:20:00 Rehrer, Freedom yang Church W/AUTO DIFF PROTHROMBIN TIME WITH INR 2020-10-23 18:20:00 Rehrer, Freedom Marquez PARTIAL THROMBOPLASTIN 2020-10-23 18:20:00 Rehrer, Freedom ortiz Church TIME (PTT) AMMONIA LEVEL 2020-10-23 18:20:00 Rehrer, Freedom Marquez HC COMPLETE BLD COUNT 2020-10-09 18:05:00 Fabian Azevedo Church W/AUTO DIFF COMPREHENSIVE METABOLIC 2020-10-09 18:05:00 Fabian Azevedo PANEL LACTIC ACID, I-STAT 2020-10-09 18:05:00 Fabian Azevedo AMMONIA LEVEL 2020-10-09 18:05:00 Fabian Azevedo ESTIMATED GFR 2020-10-09 18:05:00 Fabian Azevedo URINALYSIS 2020-10-09 17:32:00 Fabian Azevedo ECG 12-LEAD 2020-10-09 17:18:11 Fabian Azevedo HC COMPLETE BLD COUNT 2020-09-21 04:28:00 Heriberto York on Church W/AUTO DIFF BASIC METABOLIC PANEL 2020-09-21 04:28:00 Heriberto York on Church HEPATIC FUNCTION PANEL 2020-09-21 04:28:00 Heriberto York [facility] MAGNESIUM LEVEL 2020-09-21 04:28:00 Heriberto York Met hodist PHOSPHORUS LEVEL 2020-09-21 04:28:00 Heriberto York Me thodist PROTHROMBIN TIME WITH INR 2020-09-21 04:28:00 Heriberto York Church MISCELLANEOUS REFERRAL 2020-09-21 04:28:00 Annette Tovar Church TEST VITAMIN B12 LEVEL 2020-09-21 04:28:00 Heriberto York ethodist FOLATE LEVEL 2020-09-21 04:28:00 Heriberto York Met hodist ESTIMATED GFR 2020-09-21 04:28:00 Heriberto York Met hodist COVID-19 QUALITATIVE PCR 2020-09-20 14:51:00 Robby Perez Church HC COMPLETE BLD COUNT 2020-09-20 06:08:00 Heriberto York on Church W/AUTO DIFF BASIC METABOLIC PANEL 2020-09-20 06:08:00 Heriberto York on Church HEPATIC FUNCTION PANEL 2020-09-20 06:08:00 Heriberto York [facility] MAGNESIUM LEVEL 2020-09-20 06:08:00 Heriberto York Met hodist PHOSPHORUS LEVEL 2020-09-20 06:08:00 Heriberto York Me thodist PROTHROMBIN TIME WITH INR 2020-09-20 06:08:00 Heriberto York [facility] HEMOGLOBIN A1C 2020-09-20 06:08:00 Heriberto York Met hodist THYROID STIMULATING 2020-09-20 06:08:00 Heriberto York [facility] HORMONE T4 2020-09-20 06:08:00 Heriberto York Met hodist VITAMIN D 25 HYDROXY LEVEL 2020-09-20 06:08:00 Heriberto York Church ZINC LEVEL, SERUM 2020-09-20 06:08:00 Heriberto York ethodist ALPHA FETOPROTEIN 2020-09-20 06:08:00 Heriberto York M ethodist ESTIMATED GFR 2020-09-20 06:08:[address] CERVICAL SPINE WO 2020-09-20 00:50:[address] PELVIS WO CONTRAST 2020-09-20 00:50:[address] HEAD WO CONTRAST 2020-09-20 00:50:07 Bonny Rod AR CRITICAL CARE, E/M 2020-09-19 22:05:41 Bonny Rod 30-74 MINUTES URINE CULTURE 2020-09-19 22:00:00 Bonny Rod on Church URINALYSIS SCREEN AND 2020-09-19 22:00:00 Bonny Rod MICROSCOPY, WITH REFLEX TO CULTURE URINE DRUGS OF ABUSE 2020-09-19 22:00:00 Bonny Rod SCREEN MAGNESIUM LEVEL 2020-09-19 22:00:00 Bonny Rod on Church TROPONIN 2020-09-19 22:00:00 Bonny Rod on Church XR KNEE 3 VW LEFT 2020-09-19 20:06:29 Bonny Rod ston Church XR KNEE 3 VW RIGHT 2020-09-19 20:06:09 Bonny Rod [place] [facility] XR SHOULDER 2+ VW RIGHT 2020-09-19 20:05:46 Bonny Rod HC COMPLETE BLD COUNT 2020-09-19 20:05:00 Bonny Rod W/AUTO DIFF PROTHROMBIN TIME WITH INR 2020-09-19 20:05:00 Bonny Rod PARTIAL THROMBOPLASTIN 2020-09-19 20:05:00 Rod, Bonny Chema a [place] Church TIME (PTT) COMPREHENSIVE METABOLIC 2020-09-19 20:05:00 Bonny Rod Church PANEL TROPONIN 2020-09-19 20:05:00 Bonny Rod on Church B NATRIURETIC PEPTIDE 2020-09-19 20:05:00 Bonny Rod Church AMMONIA LEVEL 2020-09-19 20:05:00 Bonny Rod on Church ALCOHOL LEVEL, BLOOD 2020-09-19 20:05:00 Bonny Rod Church ESTIMATED GFR 2020-09-19 20:05:00 Bonny Rod on Church CBC WITH PLATELET AND 2020-09-02 05:32:00 Dinakar, Pierce langley Church DIFFERENTIAL Blayne BASIC METABOLIC PANEL 2020-09-02 05:32:00 Dinakar, Pierce Lopezra HEPATIC FUNCTION PANEL 2020-09-02 05:32:00 Dinakar, Pierce Floyd on Church Blayne MAGNESIUM LEVEL 2020-09-02 05:32:00 Dinakar, Pierce Treviño odist Bl[place]ne PHOSPHORUS LEVEL 2020-09-02 05:32:00 Dinakar, Pierce [place] Met hodist Blayne PROTHROMBIN TIME WITH INR 2020-09-02 05:32:00 Dinakar, Pierce yang Church Blayne MISCELLANEOUS REFERRAL 2020-09-02 05:32:00 Fauria, Annette taylor Church TEST ESTIMATED GFR 2020-09-02 05:32:00 Dinrodrigo, Pierce Hayden Meth odreema Lopezra MANUAL DIFFERENTIAL 2020-09-02 05:32:00 Pierce Garcia HC COMPLETE BLD COUNT 2020-09-01 04:46:00 Dinrodrigo, Pierce Mcconnellist W/AUTO DIFF Blayne BASIC METABOLIC PANEL 2020-09-01 04:46:00 Dinakar, Pierce Marquez Blayne HEPATIC FUNCTION PANEL 2020-09-01 04:46:00 DinakarPierce on Church [place] MAGNESIUM LEVEL 2020-09-01 04:46:00 Dinakar, Pierce Cisneros PHOSPHORUS LEVEL 2020-09-01 04:46:00 Dinakar, Pierce Hayden Met dina Cisneros PROTHROMBIN TIME WITH INR 2020-09-01 04:46:00 Dinakar, Pierce Cisneros HEMOGLOBIN A1C 2020-09-01 04:46:00 Dinakar, Pierce Cisneros ESTIMATED GFR 2020-09-01 04:46:00 Dinakar, Pierce Lopezra GGT 2020-09-01 04:46:00 Dinakar, Pierce Cisneros COVID-19 [...] VW PORTABLE 2020-08-31 15:25:00 Romero Limon on Church URINALYSIS 2020-08-31 15:14:00 Romero Limon AMMONIA LEVEL 2020-08-31 14:42:00 Nuszen, Romero A. Hayden Meth odist HC COMPLETE BLD COUNT 2020-08-31 14:22:00 Romero Limon Church W/AUTO DIFF COMPREHENSIVE METABOLIC 2020-08-31 14:22:00 Romero Limon Church PANEL LACTIC ACID, I-STAT 2020-08-31 14:22:00 Romero Limon Church ESTIMATED GFR 2020-08-31 14:22:00 Romero Limon Meth odist ECG 12-LEAD 2020-08-31 14:15:55 Romero Limon Meth odist [id number] TOTAL 2020-08-13 05:30:00 Heriberto York on [facility] HC COMPLETE BLD COUNT 2020-08-13 05:30:00 Heriberto [place] on [facility] W/AUTO DIFF COMPREHENSIVE METABOLIC 2020-08-13 05:30:00 Heriberto York [facility] PANEL MAGNESIUM LEVEL 2020-08-13 05:30:00 Heriberto York Met [facility] PHOSPHORUS LEVEL 2020-08-13 05:30:00 Heriberto York Me thodist PROTHROMBIN TIME WITH INR 2020-08-13 05:30:00 Heriberto York C-REACTIVE PROTEIN 2020-08-13 05:30:00 Heriberto York [facility] LDH 2020-08-13 05:30:00 Heriberto York Met [facility] ESTIMATED GFR 2020-08-13 05:30:00 Heriberto York [facility] URINE CULTURE 2020-08-12 22:00:00 Tay Mariscal Met [facility] URINALYSIS SCREEN AND 2020-08-12 22:00:00 Tay Mariscal on Church MICROSCOPY, WITH REFLEX TO CULTURE CT CHEST WO CONTRAST 2020-08-12 18:09:04 Tay Mariscalist BLOOD CULTURE, AEROBIC & 2020-08-12 06:35:00 Tay Mariscal ANAEROBIC BLOOD CULTURE, AEROBIC & 2020-08-12 06:30:00 Tay Mariscal Church ANAEROBIC HC COMPLETE BLD COUNT 2020-08-12 06:30:00 Heriberto [place] on [facility] W/AUTO DIFF PROTHROMBIN TIME WITH INR 2020-08-12 06:30:00 Heriberto York [facility] D-DIMER 2020-08-12 06:30:00 Heriberto York [facility] AMMONIA LEVEL 2020-08-12 06:30:00 Heriberto York [facility] COMPREHENSIVE METABOLIC 2020-08-12 04:00:00 Heriberto York [facility] PANEL MAGNESIUM LEVEL 2020-08-12 04:00:00 Heriberto York [facility] PHOSPHORUS LEVEL 2020-08-12 04:00:00 Heriberto York Me [facility] FERRITIN LEVEL 2020-08-12 04:00:00 Heriberto York [facility] INTERLEUKIN 6 2020-08-12 04:00:00 Heriberto York [facility] LDH 2020-08-12 04:00:00 Heriberto York [facility] C-REACTIVE PROTEIN 2020-08-12 04:00:00 Heriberto York [facility] ESTIMATED GFR 2020-08-12 04:00:00 Heriberto York Met [facility] VENIPUNC NEED PHYS 2020-08-11 16:29:06 Tom Castillo ethodist SKILL,DX OR RX XR CHEST 1 VW PORTABLE 2020-08-11 13:56:48 Tay Mariscal [facility] GASTROINTESTINAL PANEL 2020-08-11 10:03:00 Heriberto York [facility] HC COMPLETE BLD COUNT 2020-08-11 05:00:00 Heriberto [place] on [facility] W/AUTO DIFF PROTHROMBIN TIME WITH INR 2020-08-11 05:00:00 Heriberto York [facility] HEMOGLOBIN A1C 2020-08-11 05:00:00 Heriberto York [facility] COMPREHENSIVE METABOLIC 2020-08-11 04:00:00 Heriberto York [facility] PANEL MAGNESIUM LEVEL 2020-08-11 04:00:00 Heriberto York [facility] PHOSPHORUS LEVEL 2020-08-11 04:00:00 Heriberto York Me [facility] THYROID STIMULATING 2020-08-11 04:00:00 Heriberto York [facility] HORMONE T4 2020-08-11 04:00:00 Heriberto York [facility] C-REACTIVE PROTEIN 2020-08-11 04:00:00 Heriberto York [facility] ESTIMATED GFR 2020-08-11 04:00:00 Heriberto York [facility] COVID-19 QUALITATIVE PCR 2020-08-10 20:05:00 Heriberto York trey Marquez VENOUS BLOOD GAS 2020-08-09 16:22:00 Romero Limon [facility] HC COMPLETE BLD COUNT 2020-08-09 16:12:00 Romero Limon W/AUTO DIFF COMPREHENSIVE METABOLIC 2020-08-09 16:12:00 Romero Limon [facility] PANEL LACTIC ACID, I-STAT 2020-08-09 16:12:00 Romero Limon ESTIMATED GFR 2020-08-09 16:12:[address] RENAL STONE PROTOCOL 2020-08-08 18:22:58 Janelle Watts ECG ED PRELIMINARY 2020-08-08 17:56:48 Janelle Watts [facility] INTERPRETATION ECG 12-LEAD 2020-08-08 17:49:02 Janelle Watts HC COMPLETE BLD COUNT 2020-08-08 17:35:00 Janelle Watts W/AUTO DIFF COMPREHENSIVE METABOLIC 2020-08-08 17:35:00 Janelle Watts PANEL LACTIC ACID, I-STAT 2020-08-08 17:35:00 Janelle Watts CREATINE KINASE, TOTAL 2020-08-08 17:35:00 Janelle Watts (CPK) TROPONIN, I-STAT 2020-08-08 17:35:00 Janelle Watts on [facility] B NATRIURETIC PEP, I-STAT 2020-08-08 17:35:00 Janelle Watts ndt Hayden [facility] ESTIMATED GFR 2020-08-08 17:35:00 Janelle Wattsto n Church HC COMPLETE BLD COUNT 2020-07-07 03:35:00 YorkHeribertot on Church W/AUTO DIFF BASIC METABOLIC PANEL 2020-07-07 03:35:00 York Heriberto [place] on [facility] HEPATIC FUNCTION PANEL 2020-07-07 03:35:00 YorkHeriberto ton Church MAGNESIUM LEVEL 2020-07-07 03:35:00 York, Heribertoanaid Hayden Met h[facility]ist PHOSPHORUS LEVEL 2020-07-07 03:35:00 York, Heriberto Hayden Me thodist PROTHROMBIN TIME WITH INR 2020-07-07 03:35:00 YorkeHriberto silverman Church MISCELLANEOUS REFERRAL 2020-07-07 03:35:00 FauriaAnnette ston Church TEST ESTIMATED GFR 2020-07-07 03:35:00 YorkHeriberto silverman [facility] HC COMPLETE BLD COUNT 2020-07-06 05:00:00 YorkHeriberto garvin on [facility] W/AUTO DIFF BASIC METABOLIC PANEL 2020-07-06 05:00:00 YorkHeriberto garvin on [facility] HEPATIC FUNCTION PANEL 2020-07-06 05:00:00 YorkHeriberto silverman Church MAGNESIUM LEVEL 2020-07-06 05:00:00 YorkOrlandoHeriberto Hayden Met h[facility] PHOSPHORUS LEVEL 2020-07-06 05:00:00 York Heriberto Hayden [facility] PROTHROMBIN TIME WITH INR 2020-07-06 05:00:00 YorkOrlando silvermantor Isrrael ortiz Church MISCELLANEOUS REFERRAL 2020-07-06 05:00:00 Fauria Annette Nikki ston Church TEST ESTIMATED GFR 2020-07-06 05:00:00 YorkHeriberto silverman [facility] HC COMPLETE BLD COUNT 2020-07-05 05:15:00 Heriberto [place] on [facility] W/AUTO DIFF BASIC METABOLIC PANEL 2020-07-05 05:15:00 Heriberto [place] on [facility] HEPATIC FUNCTION PANEL 2020-07-05 05:15:00 Heriberto York [facility] MAGNESIUM LEVEL 2020-07-05 05:15:00 Heriberto York [facility] PHOSPHORUS LEVEL 2020-07-05 05:15:00 Heriberto York [facility] PROTHROMBIN TIME WITH INR 2020-07-05 05:15:00 Heriberto [place] [facility] HEMOGLOBIN A1C 2020-07-05 05:15:00 Heriberto York [facility] THYROID STIMULATING 2020-07-05 05:15:00 Heriberto York HORMONE T4 2020-07-05 05:15:00 Heriberto York [facility] VITAMIN D 25 HYDROXY LEVEL 2020-07-05 05:15:00 Heriberto York ZINC LEVEL, SERUM 2020-07-05 05:15:00 Heriberto York ethodist ALPHA FETOPROTEIN 2020-07-05 05:15:00 Heriberto York M ethodist ESTIMATED GFR 2020-07-05 05:15:00 Heriberto York [facility] ECG 12-LEAD 2020-07-04 18:50:14 Romero Limon Meth odist LACTIC ACID LEVEL 2020-07-04 18:00:00 Romero Limon Me th[facility] LACTIC ACID, I-STAT 2020-07-04 15:07:00 Romero Limon COVID-19 QUALITATIVE PCR 2020-07-04 12:55:00 Romero Limon URINALYSIS 2020-07-04 12:55:00 Romero Limon URINE DRUGS OF ABUSE 2020-07-04 12:55:00 Romero Limon SCREEN XR CHEST 1 VW 2020-07-04 12:19:[address] HEAD WO CONTRAST 2020-07-04 12:19:05 Romero Limon HC COMPLETE BLD COUNT 2020-07-04 11:29:00 Romero Limon [facility] W/AUTO DIFF AMMONIA LEVEL 2020-07-04 11:29:00 Romero Limon Meth odist COMPREHENSIVE METABOLIC 2020-07-04 11:17:00 Romero Limon [facility] PANEL LACTIC ACID, I-STAT 2020-07-04 11:17:00 Romero Limon VENOUS BLOOD GAS 2020-07-04 11:17:00 Romero Limon Met [facility] ESTIMATED GFR 2020-07-04 11:17:00 Romero Limon Meth odist BASIC METABOLIC PANEL 2020-06-03 05:33:00 Jennifer Ghosh CBC HEMOGRAM 2020-06-03 05:33:00 Jennifer Ghosh Meth odist HEPATIC FUNCTION PANEL 2020-06-03 05:33:00 Jennifer Ghosh on [facility] MAGNESIUM LEVEL 2020-06-03 05:33:00 Jennifer Ghosh Meth odist PHOSPHORUS LEVEL 2020-06-03 05:33:00 Jennifer Ghosh Met hodist PROTHROMBIN TIME WITH INR 2020-06-03 05:33:00 Jennifer Ghosh Church ESTIMATED GFR 2020-06-03 05:33:00 Jennifer Ghosh odist TRANSFUSE RED BLOOD CELLS 2020-06-02 19:24:45 Jennifer Ghosh Church XR HAND 3+ VW LEFT 2020-06-02 18:30:00 Jennifer Ghosh M ethodist BASIC METABOLIC PANEL 2020-06-02 05:19:00 Jennifer Ghosh Church HEPATIC FUNCTION PANEL 2020-06-02 05:19:00 Jennifer Ghosh on Church MAGNESIUM LEVEL 2020-06-02 05:19:00 Jennifer Ghosh Meth odist PHOSPHORUS LEVEL 2020-06-02 05:19:00 Jennifer Ghosh Met hodist PROTHROMBIN TIME WITH INR 2020-06-02 05:19:00 Jennifer Ghosh HC COMPLETE BLD COUNT 2020-06-02 05:19:00 Li, Jennifer [place] n [facility] W/AUTO DIFF ESTIMATED GFR 2020-06-02 05:19:00 Jennifer Ghosh Meth odist SMEAR REVIEW 2020-06-02 05:19:00 Jennifer Ghosh Meth odist VENIPUNC NEED PHYS 2020-06-01 13:55:27 Samanta Ravi ethodist SKILL,DX OR RX BASIC METABOLIC PANEL 2020-06-01 05:30:00 DavinaStanislawJennifer Socorro n Church CBC HEMOGRAM 2020-06-01 05:30:00 DavinaJennifer Meth odist HEPATIC FUNCTION PANEL 2020-06-01 05:30:00 Jennifer Ghosh on [facility] MAGNESIUM LEVEL 2020-06-01 05:30:00 DavinaJennifer Meth odist PHOSPHORUS LEVEL 2020-06-01 05:30:00 Davina Jennifer Hayden [facility] PROTHROMBIN TIME WITH INR 2020-06-01 05:30:00 DavinaJennifer Gucci uston Church AMMONIA LEVEL 2020-06-01 05:30:00 DavinaJennifer Meth odist ESTIMATED GFR 2020-06-01 05:30:00 DavinaJennifer Meth odist TYPE AND SCREEN 2020-06-01 05:30:00 DavinaJennifer Meth odist URINE DRUGS OF ABUSE 2020-05-31 09:09:00 Annette Tovar on Church SCREEN MISCELLANEOUS REFERRAL 2020-05-31 09:09:00 Annette Tovar [facility] TEST HC COMPLETE BLD COUNT 2020-05-31 04:27:00 Heriberto [place] on [facility] W/AUTO DIFF BASIC METABOLIC PANEL 2020-05-31 04:27:00 Heriberto [place] on [facility] HEPATIC FUNCTION PANEL 2020-05-31 04:27:00 Heriberto [place] ton [facility] MAGNESIUM LEVEL 2020-05-31 04:27:00 Heriberto York Met [facility] PHOSPHORUS LEVEL 2020-05-31 04:27:00 Heriberto York Me thodist PROTHROMBIN TIME WITH INR 2020-05-31 04:27:00 Heriberto York [facility] HEMOGLOBIN A1C 2020-05-31 04:27:00 Heriberto York [facility] THYROID STIMULATING 2020-05-31 04:27:00 Chela Heriberto Hayden [facility] HORMONE T4 2020-05-31 04:27:00 ChelaHeriberto [facility] VITAMIN D 25 HYDROXY LEVEL 2020-05-31 04:27:00 Orlando Yorkanaid Hayden [facility] ZINC LEVEL, SERUM 2020-05-31 04:27:00 Chela Heribertoanaid Reynolds ethodist ALPHA FETOPROTEIN 2020-05-31 04:27:00 ChelaHeriberto ethodist ESTIMATED GFR 2020-05-31 04:27:00 ChelaHeriberto [facility] LACTIC ACID LEVEL 2020-05-31 04:27:00 Romero Limon Me thodist LACTIC ACID LEVEL 2020-05-30 23:41:[address] [facility] [address] ABDOMEN PELVIS WO 2020-05-30 20:14:59 [...] COMPLETE BLD COUNT 2020-05-30 18:20:00 Romero Limon W/AUTO DIFF COMPREHENSIVE METABOLIC 2020-05-30 18:15:00 Romero Limon PANEL LACTIC ACID, I-STAT 2020-05-30 18:15:00 Romero Limon ESTIMATED GFR 2020-05-30 18:15:00 Romero Limon Meth odist MRI BRAIN & ORBIT W WO 2020-05-27 17:10:00 Mana, Sushma Catracho Church CONTRAST Lyle URINE DRUGS OF ABUSE 2020-05-17 09:10:00 Annette Tovar on Church SCREEN MISCELLANEOUS REFERRAL 2020-05-17 03:22:00 Annette Tovar [facility] TEST BASIC METABOLIC PANEL 2020-05-17 03:22:00 Mercy Kaplan ALCOHOL LEVEL, BLOOD 2020-05-17 03:22:00 Annette Tovar on Church HEPATIC FUNCTION PANEL 2020-05-17 03:22:00 Annette Tovar [facility] HC COMPLETE BLD COUNT 2020-05-17 03:22:00 Mercy Kaplanist W/AUTO DIFF PROTHROMBIN TIME WITH INR 2020-05-17 03:22:00 Mercy Kaplan [facility] ESTIMATED GFR 2020-05-17 03:22:00 Annette Tovar Me thodist XR ABDOMEN 1 VW PORTABLE 2020-05-16 18:10:00 Annette Tovar [facility] HC COMPLETE BLD COUNT 2020-05-16 05:10:00 Mercy Kaplanist W/AUTO DIFF PROTHROMBIN TIME WITH INR 2020-05-16 05:10:00 Howard Staton HEPATIC FUNCTION PANEL 2020-05-16 01:21:00 Howard Staton Church ESTIMATED GFR 2020-05-16 01:21:00 Howard Staton ethodist BASIC METABOLIC PANEL 2020-05-16 01:21:00 Howard Staton [facility] COMPREHENSIVE METABOLIC 2020-05-15 05:00:00 Mercy Kaplan [facility] PANEL HC COMPLETE BLD COUNT 2020-05-15 05:00:00 Mercy Kaplan W/AUTO DIFF ESTIMATED GFR 2020-05-15 05:00:00 Mercy Kaplan on [facility] MAGNESIUM LEVEL 2020-05-15 05:00:00 Mercy Kaplan on Church PROTHROMBIN TIME WITH INR 2020-05-15 05:00:00 Mercy Kaplan PHOSPHORUS LEVEL 2020-05-15 05:00:00 Mercy Kaplan [facility] PROTHROMBIN TIME WITH INR 2020-05-14 07:46:00 Jose CarlosEmanuel perkins Church Imarendenewe AMMONIA LEVEL 2020-05-14 06:05:00 Emanuel Call ethodist Imarendenewe BASIC METABOLIC PANEL 2020-05-14 06:05:00 Emanuel Call Nikki brandon Church Imarendenewe ESTIMATED GFR 2020-05-14 06:05:00 Emanuel Call ethodist Imarendenesujey HEPATIC FUNCTION PANEL 2020-05-14 06:05:00 Jose CarloshoneyEmanuel galvan Church Imarendenesujey PHOSPHORUS LEVEL 2020-05-14 06:05:00 Emanuel Call Church Imarendenewe MAGNESIUM LEVEL 2020-05-14 06:05:00 Emanuel Call ethodist Imarendenesujey LACTIC ACID, I-STAT 2020-05-13 19:45:00 Vamsi Johnson BASIC METABOLIC PANEL 2020-05-13 19:45:00 Vamsi Johnson Church ESTIMATED GFR 2020-05-13 19:45:00 Vamsi Johnson Meth odist COVID-19 QUALITATIVE PCR 2020-05-13 18:05:00 Vamsi Johnson [facility] LACTIC ACID, I-STAT 2020-05-13 18:05:00 Vamsi Johnson AR CRITICAL CARE, E/M 2020-05-13 15:22:15 Vamsi Johnson n Church 30-74 MINUTES ECG ED PRELIMINARY 2020-05-13 15:22:15 Vamsi Johnson ethodist INTERPRETATION CT HEAD WO CONTRAST 2020-05-13 14:46:30 Vamsi Johnson XR KNEE 3 VW RIGHT 2020-05-13 14:38:04 Vamsi Johnson ethodist XR CHEST 1 VW PORTABLE 2020-05-13 13:58:09 Vamsi Johnson on Church URINALYSIS 2020-05-13 13:40:00 AlexVamsi Meth odist ECG 12-LEAD 2020-05-13 13:23:43 AlexVamsi Meth odist HC COMPLETE BLD COUNT 2020-05-13 13:20:00 AlexVamsi Kush Albertaalejandrina n Church W/AUTO DIFF PROTHROMBIN TIME WITH INR, 2020-05-13 13:20:00 AlexVamsi Kush ortiz Church I-STAT COMPREHENSIVE METABOLIC 2020-05-13 13:20:00 AlexVamsi Church PANEL LACTIC ACID, I-STAT 2020-05-13 13:20:00 Alex, Vamsi Hayden [facility] CREATINE KINASE, TOTAL 2020-05-13 13:20:00 AlexVamsi on Church (CPK) TROPONIN, I-STAT 2020-05-13 13:20:00 Alex Vamsi Simmonsmaverick Hayden Met [facility] B NATRIURETIC PEP, I-STAT 2020-05-13 13:20:00 Alex Vamsi Currie Gucci uston [facility] AMMONIA LEVEL 2020-05-13 13:20:00 Alex, Vamsi Simmonsmaverick Hayden Meth odist ESTIMATED GFR 2020-05-13 13:20:00 AlexVamsi Hayden Meth odist HC COMPLETE BLD COUNT 2020-04-21 05:42:00 Mercy Kaplan W/AUTO DIFF COMPREHENSIVE METABOLIC 2020-04-21 05:42:00 Mercy Kaplan [facility] PANEL ESTIMATED GFR 2020-04-21 05:42:00 Mercy Kaplan [facility] BILIRUBIN DIRECT 2020-04-21 05:42:00 Mercy Kaplan [facility] MISCELLANEOUS REFERRAL 2020-04-20 06:10:00 Mercy Kaplan TEST BASIC METABOLIC PANEL 2020-04-20 04:25:00 Mercy Kaplan HC COMPLETE BLD COUNT 2020-04-20 04:25:00 Mercy Kaplan W/AUTO DIFF ESTIMATED GFR 2020-04-20 04:25:00 Mercy Kaplan on [facility] HEPATIC FUNCTION PANEL 2020-04-20 04:25:00 Mercy Kaplan POC GLUCOSE 2020-04-19 20:25:00 Mercy Kaplan on [facility] BASIC METABOLIC PANEL 2020-04-19 04:56:00 Mercy Kaplanist ESTIMATED GFR 2020-04-19 04:56:00 Mercy Kaplan on [facility] XR KNEE 3 VW RIGHT 2020-04-18 17:05:10 Mercy Kaplan [facility] COMPREHENSIVE METABOLIC 2020-04-18 04:00:00 Mercy Kaplan [facility] PANEL ESTIMATED GFR 2020-04-18 04:00:00 Mercy Kaplan on [facility] MAGNESIUM LEVEL 2020-04-18 04:00:00 Mercy Kaplan on [facility] BASIC METABOLIC PANEL 2020-04-17 04:50:00 Mercy Kaplan [facility] ESTIMATED GFR 2020-04-17 04:50:00 Mercy Kaplan on [facility] AMMONIA LEVEL 2020-04-16 16:58:00 Mercy Kaplan on [facility] URINE DRUGS OF ABUSE 2020-04-15 13:35:00 FauriaAnnette on Church SCREEN COMPREHENSIVE METABOLIC 2020-04-15 12:34:00 Mercy Kaplan [facility] PANEL ESTIMATED GFR 2020-04-15 12:34:00 Mercy Kaplan on [facility] COMPREHENSIVE METABOLIC 2020-04-15 05:49:00 Mercy Kaplan [facility] PANEL HC COMPLETE BLD COUNT 2020-04-15 05:49:00 Mercy Kaplan [facility] W/AUTO DIFF ESTIMATED GFR 2020-04-15 05:49:00 Mercy Kaplan on [facility] ALCOHOL LEVEL, BLOOD 2020-04-14 15:04:00 FauriaAnnette on Church COVID-19 QUALITATIVE PCR 2020-04-13 18:04:00 Wild Kovacs [facility] [place] CT ABDOMEN PELVIS WO 2020-04-13 15:59:36 Wild Kovacs [facility] CONTRAST [place] URINALYSIS 2020-04-13 13:20:00 Wild Kovacs Met hodist [place] HC COMPLETE BLD COUNT 2020-04-13 12:21:00 Wild Kovacs on [facility] W/AUTO DIFF [place] COMPREHENSIVE METABOLIC 2020-04-13 12:21:00 Fermín Wild Nikki taylor Church PANEL [place] Jonathan NATRIURETIC PEP, I-STAT 2020-04-13 12:21:00 Wild Kovacs [facility] [place] ESTIMATED GFR 2020-04-13 12:21:00 Wild Kovacs Met hodist [place] HC COMPLETE BLD COUNT 2020-03-19 04:22:00 Baylee Girard [facility] W/AUTO DIFF BASIC METABOLIC PANEL 2020-03-19 04:22:00 Baylee Girard [facility] HEPATIC FUNCTION PANEL 2020-03-19 04:22:00 Chad Girard [facility] MAGNESIUM LEVEL 2020-03-19 04:22:00 Baylee Girard on Church PROTHROMBIN TIME WITH INR 2020-03-19 04:22:00 Flaco Girard [facility] ESTIMATED GFR 2020-03-19 04:22:00 Baylee Girard on Church MRI BRAIN WO CONTRAST 2020-03-18 22:27:44 William Velez [facility] URINE CULTURE 2020-03-18 17:00:00 Baylee Girard on Church URINALYSIS SCREEN AND 2020-03-18 17:00:00 Baylee Girard [facility] MICROSCOPY, WITH REFLEX TO CULTURE URINE DRUGS OF ABUSE 2020-03-18 17:00:00 Baylee Girard [facility] SCREEN BASIC METABOLIC PANEL 2020-03-18 00:25:00 Baylee Girard [facility] HEPATIC FUNCTION PANEL 2020-03-18 00:25:00 Chad Girard [facility] MAGNESIUM LEVEL 2020-03-18 00:25:00 Baylee Girard on [facility] ESTIMATED GFR 2020-03-18 00:25:00 Baylee Girard on [facility] HC COMPLETE BLD COUNT 2020-03-18 00:10:00 Baylee Girard [facility] W/AUTO DIFF PROTHROMBIN TIME WITH INR 2020-03-18 00:10:00 Ting Pierson Flaco king Catracho Marquez CT HEAD WO CONTRAST 2020-03-17 22:17:12 Baylee Girard LACTIC ACID LEVEL 2020-03-17 22:10:00 Nuszen, Romero Hayden [facility]od[facility] LACTIC ACID LEVEL 2020-03-17 20:22:00 Nuszen, Romero Hayden [facility] COVID-19 QUALITATIVE PCR 2020-03-17 18:10:00 NuszenRomero AMMONIA LEVEL 2020-03-17 16:40:00 NuszenRomero odreema URINALYSIS 2020-03-17 16:30:00 NusRomero fitch HC COMPLETE BLD COUNT 2020-03-17 16:30:00 NuszenRomero W/AUTO DIFF COMPREHENSIVE METABOLIC 2020-03-17 16:30:00 NuszenRomero PANEL LACTIC ACID, I-STAT 2020-03-17 16:30:00 NuszenRomero AMYLASE LEVEL 2020-03-17 16:30:00 NusRomero fitch PROTHROMBIN TIME WITH INR, 2020-03-17 16:30:00 NusRomero fitch I-STAT ESTIMATED GFR 2020-03-17 16:30:00 NusRomero fitch IONIZED CALCIUM 2020-03-17 16:30:00 NusRomero fitch ALCOHOL LEVEL, BLOOD 2020-03-17 16:30:00 NuszenRomero URINE DRUGS OF ABUSE 2020-03-17 16:30:00 Romero Limon SCREEN CV STRESS TEST 2020-03-14 11:40:36 Angela Roper on Church TTE STRESS DOBUTAMINE 2020-03-14 11:40:36 Angela Roper ([id number]) GENERAL SLEEP STUDY 2020-03-11 09:01:00 Ivet Reddy HC COMPLETE BLD COUNT 2020-02-21 05:40:00 Heriberto [place] on [facility] W/AUTO DIFF BASIC METABOLIC PANEL 2020-02-21 05:40:00 Heriberto [place] on [facility] HEPATIC FUNCTION PANEL 2020-02-21 05:40:00 Heriberto [place] ton [facility] MAGNESIUM LEVEL 2020-02-21 05:40:00 Chela Heriberto Hayden [facility] PHOSPHORUS LEVEL 2020-02-21 05:40:00 Chela Heriberto Hayden Me thodist PROTHROMBIN TIME WITH INR 2020-02-21 05:40:00 Heriberto York [facility] ESTIMATED GFR 2020-02-21 05:40:00 Orlando Yorktor Catracho Met [facility] HC COMPLETE BLD COUNT 2020-02-20 05:47:00 Heriberto [place] on [facility] W/AUTO DIFF PROTHROMBIN TIME WITH INR 2020-02-20 05:47:00 Heriberto York [facility] BASIC METABOLIC PANEL 2020-02-20 04:00:00 Heriberto [place] on [facility] HEPATIC FUNCTION PANEL 2020-02-20 04:00:00 Heriberto York [facility] MAGNESIUM LEVEL 2020-02-20 04:00:00 Chela Heriberto Catracho Met [facility] PHOSPHORUS LEVEL 2020-02-20 04:00:00 Chela Heriberto Catracho Me thodist ESTIMATED GFR 2020-02-20 04:00:00 Chela Heriberto Hayden [facility] XR ABDOMEN 1 VW PORTABLE 2020-02-19 18:17:50 Annette Tovar Church AMMONIA LEVEL 2020-02-19 13:00:00 Chela Heriberto Hayden [facility] HC COMPLETE BLD COUNT 2020-02-19 06:08:00 Heriberto [place] on [facility] W/AUTO DIFF BASIC METABOLIC PANEL 2020-02-19 06:08:00 Heriberto [place] on [facility] HEPATIC FUNCTION PANEL 2020-02-19 06:08:00 Heriberto [place] ton [facility] MAGNESIUM LEVEL 2020-02-19 06:08:00 York, Heriberto Hayden Met [facility] PHOSPHORUS LEVEL 2020-02-19 06:08:00 Heriberto York [facility] PROTHROMBIN TIME WITH INR 2020-02-19 06:08:00 Heriberto York HEMOGLOBIN A1C 2020-02-19 06:08:00 Heriberto York [facility] THYROID STIMULATING 2020-02-19 06:08:00 Heriberto York HORMONE T4 2020-02-19 06:08:00 Heriberto York [facility] VITAMIN D 25 HYDROXY LEVEL 2020-02-19 06:08:00 Heriberto Yokr [facility] ZINC LEVEL, SERUM 2020-02-19 06:08:00 Heriberto York Rodolfo ethodist ALPHA FETOPROTEIN 2020-02-19 06:08:00 Heriberto York Rodolfo ethodist ESTIMATED GFR 2020-02-19 06:08:00 Heriberto York [facility] ALCOHOL LEVEL, BLOOD 2020-02-18 17:21:00 Annette Tovar on Church URINE DRUGS OF ABUSE 2020-02-18 16:40:00 Annette Tovar on Church SCREEN URINALYSIS 2020-02-18 13:01:00 Danyel Grubbs on Church URINE DRUGS OF ABUSE 2020-02-18 13:01:00 Danyel Grubbs SCREEN HC COMPLETE BLD COUNT 2020-02-18 10:00:00 Danyel Grubbs W/AUTO DIFF COMPREHENSIVE METABOLIC 2020-02-18 10:00:00 Danyel Grubbs [facility] PANEL PARTIAL THROMBOPLASTIN 2020-02-18 10:00:00 Danyel Grubbs TIME (PTT) PROTHROMBIN TIME WITH INR, 2020-02-18 10:00:00 Danyel Grubbs I-STAT AMMONIA LEVEL 2020-02-18 10:00:00 Danyel [facility] ESTIMATED GFR 2020-02-18 10:00:00 Danyel [facility] ALCOHOL LEVEL, BLOOD 2020-02-18 10:00:00 Danyel Grubbs Catracho Marquez FERRITIN LEVEL 2020-01-20 12:39:00 Dinrodrigo, Pierce Cisneros TOTAL IRON BINDING 2020-01-20 12:39:00 Dinrodrigo, Pierce Hayden M ethodist CAPACITY [facility] COMPLETE BLD COUNT 2020-01-20 06:00:00 Rolando, Pierce langley [facility] W/AUTO DIFF [place] BASIC METABOLIC PANEL 2020-01-20 06:00:00 Dinakar, Pierce Mcconnellist [place] HEPATIC FUNCTION PANEL 2020-01-20 06:00:00 Dinakar, Pierce [facility] MAGNESIUM LEVEL 2020-01-20 06:00:00 Dinrodrigo, Pierce Cisneros PHOSPHORUS LEVEL 2020-01-20 06:00:00 Dinakar, Pierce Cisneros PROTHROMBIN TIME WITH INR 2020-01-20 06:00:00 Rolando, Pierce Cisneros ALPHA FETOPROTEIN 2020-01-20 06:00:00 Annette Tovar ESTIMATED GFR 2020-01-20 06:00:00 Annette Tovar [facility] URINE DRUGS OF ABUSE 2020-01-19 19:34:00 Annette Tovar SCREEN DRUG QUARLES 9, SER/THAIS, SCRN 2020-01-19 11:14:00 Calos Garcia W/RFLX TO CONF MISCELLANEOUS REFERRAL 2020-01-19 11:14:00 Calos Garcia TEST OPIATES, S/P, QUANT 2020-01-19 11:14:00 Calos Garcia BLOOD CULTURE, AEROBIC & 2020-01-19 03:00:00 Pierce Garcia ANAEROBIC [facility] COMPLETE BLD COUNT 2020-01-19 03:00:00 Rolando, Pierce langle[facility] W/AUTO DIFF [place] BASIC METABOLIC PANEL 2020-01-19 03:00:00 DinPierce wallace HEPATIC FUNCTION PANEL 2020-01-19 03:00:00 Dinrodrigo, Pierce [facility] [place] MAGNESIUM LEVEL 2020-01-19 03:00:00 Dinakar, Pierce Cisneros [...] 3+ VW RIGHT 2020-01-18 21:39:57 Diana Bangura [facility] HC COMPLETE BLD COUNT 2020-01-18 20:56:00 Diana Bangura W/AUTO DIFF COMPREHENSIVE METABOLIC 2020-01-18 20:56:00 Diana Bangura [facility] PANEL AMYLASE LEVEL 2020-01-18 20:56:00 Diana Bangura [facility] MAGNESIUM LEVEL 2020-01-18 20:56:00 Diana Bangura [facility] PHOSPHORUS LEVEL 2020-01-18 20:56:00 Diana Bangura ESTIMATED GFR 2020-01-18 20:56:00 Diana Bangura URINALYSIS 2020-01-18 20:25:00 Diana Bangura BASIC METABOLIC PANEL 2020-01-11 05:40:00 Dinakar, Pierce Cisneros HC COMPLETE BLD COUNT 2020-01-11 05:40:00 Dinakar, Pierce Marquez W/AUTO DIFF [place] MAGNESIUM LEVEL 2020-01-11 05:40:00 Dinakar, Pierce Cisneros HEPATIC FUNCTION PANEL 2020-01-11 05:40:00 Dinakar, Pierce Cisneros PHOSPHORUS LEVEL 2020-01-11 05:40:00 Dinakar, Pierce Hayden Met hodist [facility] PROTHROMBIN TIME WITH INR 2020-01-11 05:40:00 Dinholleyr, Pierce Marquez [facility] ESTIMATED GFR 2020-01-11 05:40:00 Dinrodrigo, Pierce Cisneros XR FOOT 2 VW RIGHT 2020-01-10 18:22:30 Dinakar, Pierce Reynolds ethodist [place] MRI BRAIN WO CONTRAST 2020-01-10 17:52:00 Dinholleyr, Pierce langley Churchre[facility] Cisner[facility] HC COMPLETE BLD COUNT 2020-01-10 05:14:00 Dinakar, Pierce langle[facility] W/AUTO DIFF [place] BASIC METABOLIC PANEL 2020-01-10 05:14:00 Dinakar, Pierce langley [facility] [place] HEPATIC FUNCTION PANEL 2020-01-10 05:14:00 DinakarPierce [facility] [place] MAGNESIUM LEVEL 2020-01-10 05:14:00 Dinakar, Pierce ledesma Blayne PHOSPHORUS LEVEL 2020-01-10 05:14:00 Dinakar, Pierce Cisneros PROTHROMBIN TIME WITH INR 2020-01-10 05:14:00 Dinakaalondra, Pierce Cisneros ESTIMATED GFR 2020-01-10 05:14:00 Dinrodrigo, Pierce Lopezra URINE CULTURE 2020-01-09 05:30:00 Kayleigh Soares URINALYSIS SCREEN AND 2020-01-09 05:30:00 Kayleigh Soares MICROSCOPY, WITH REFLEX TO CULTURE SODIUM LEVEL, URINE, 2020-01-09 05:30:00 [facility] RANDOM CREATININE LEVEL, URINE, 2020-01-09 05:30:00 [facility] RANDOM HC COMPLETE BLD COUNT 2020-01-09 05:08:00 Dinakar, Pierce langley Church W/AUTO DIFF Blayne BASIC METABOLIC PANEL 2020-01-09 05:08:00 Dinakar, Pierce langley Church Bl[place] HEPATIC FUNCTION PANEL 2020-01-09 05:08:00 DinakarPierce on Church Blayne MAGNESIUM LEVEL 2020-01-09 05:08:00 Dinakar, Pierce Lopezra PHOSPHORUS LEVEL 2020-01-09 05:08:00 Dinakar, Pierce Hayden Met hodreema Lopezra PROTHROMBIN TIME WITH INR 2020-01-09 05:08:00 Dinakar, Pierce Lopezra ESTIMATED GFR 2020-01-09 05:08:00 Dinakar, Pierce Cisneros XR ABDOMEN 1 VW PORTABLE 2020-01-08 18:04:31 Fauria, Annette Marquez HC COMPLETE BLD COUNT 2020-01-08 06:11:00 Dinakar, Pierce Mcconnellist W/AUTO DIFF Blayne BASIC METABOLIC PANEL 2020-01-08 06:11:00 Dinakar, Pierce langley Church Blayne HEPATIC FUNCTION PANEL 2020-01-08 06:11:00 Dinakar, Pierce galvan Church Blayne MAGNESIUM LEVEL 2020-01-08 06:11:00 Dinakar, Pierce ledesma Blayne PHOSPHORUS LEVEL 2020-01-08 06:11:00 Dinakar, Pierce Hayden Met dina Cisneros PROTHROMBIN TIME WITH INR 2020-01-08 06:11:00 Dinakar, Pierce Cisneros HEMOGLOBIN A1C 2020-01-08 06:11:00 Dinakar, Pierce Lopezra ESTIMATED GFR 2020-01-08 06:11:00 Dinakar, Pierce ledesma Blayne BLOOD CULTURE, AEROBIC & 2020-01-08 06:10:00 Dinakar, Pierce taylor Church ANAEROBIC [place]ne BLOOD CULTURE, AEROBIC & 2020-01-07 23:03:00 Dinakar, Pierce taylor Church ANAEROBIC [place] URINALYSIS, AUTOMATED WITH 2020-01-07 23:03:00 Dinakar, Pierce Marquez MICROSCOPY Bl[place]ne AMMONIA LEVEL 2020-01-07 15:30:[address] HEAD WO CONTRAST 2020-01-07 15:23:57 Diana Bangura URINALYSIS 2020-01-07 15:00:00 Diana Bangura HC COMPLETE BLD COUNT 2020-01-07 14:45:00 Diana Bangura W/AUTO DIFF COMPREHENSIVE METABOLIC 2020-01-07 14:45:00 Diana Bangura PANEL LACTIC ACID, I-STAT 2020-01-07 14:45:00 Diana Bangura stokorin [facility] AMYLASE LEVEL 2020-01-07 14:45:00 Diana Bangura CREATINE KINASE, TOTAL 2020-01-07 14:45:00 Diana Bangura (CPK) TROPONIN, I-STAT 2020-01-07 14:45:00 Diana Bangura MAGNESIUM LEVEL 2020-01-07 14:45:00 Diana Bangura PHOSPHORUS LEVEL 2020-01-07 14:45:00 Diana Bangura ESTIMATED GFR 2020-01-07 14:45:[address] CARDIAC CALCIUM SCORE 2019-12-25 13:31:34 Gloria Girard HC COMPLETE BLD COUNT 2019-12-25 04:40:00 Dinakar, Pierce langley Church W/AUTO DIFF Blayne BASIC METABOLIC PANEL 2019-12-25 04:40:00 Dinakar, Pierce langley Churchreema Cisneros HEPATIC FUNCTION PANEL 2019-12-25 04:40:00 Dinakar, Pierce galvan Church Blayne MAGNESIUM LEVEL 2019-12-25 04:40:00 Dinakar, Pierce Treviño odreema Blayne PHOSPHORUS LEVEL 2019-12-25 04:40:00 Dinakar, Pierce Cisneros PROTHROMBIN TIME WITH INR 2019-12-25 04:40:00 Dinakar, Pierce yang Church Blayne ESTIMATED GFR 2019-12-25 04:40:00 Dinakar, Pierce Hayden Meth odist Blayne VENIPUNC NEED PHYS 2019-12-24 14:11:08 Samanta Ravi ethodist SKILL,DX OR RX URINALYSIS, AUTOMATED WITH 2019-12-24 08:40:00 Dinakar, Pierce Marquez MICROSCOPY Blayne CBC WITH PLATELET AND 2019-12-24 05:20:00 Dinakar, Pierce Marquez DIFFERENTIAL Blayne PROTHROMBIN TIME WITH INR 2019-12-24 05:20:00 Dinakar, Pierce yang Church Bl[place] HEMOGLOBIN A1C 2019-12-24 05:20:00 Dinakar, Pierce Treviño odreema Blayne BASIC METABOLIC PANEL 2019-12-24 04:00:00 Dinakar, Pierce langley Church Blayne HEPATIC FUNCTION PANEL 2019-12-24 04:00:00 Dinakar, Pierce Floyd on Church Blayne MAGNESIUM LEVEL 2019-12-24 04:00:00 Dinakar, Pierce Treviño odist Blayne PHOSPHORUS LEVEL 2019-12-24 04:00:00 Dinakar, Pierce Hayden Met dina Cisneros ESTIMATED GFR 2019-12-24 04:00:00 Dinakar, Pierce Treviño odreema Lopezra BLOOD CULTURE, AEROBIC & 2019-12-23 17:20:00 Dinakar, Pierce taylor Church ANAEROBIC Blayne HC COMPLETE BLD COUNT 2019-12-23 17:20:00 Dinakar, Pierce langley Church W/AUTO DIFF Blayne PROTHROMBIN TIME WITH INR 2019-12-23 17:20:00 Dinakar, Pierce yang Church [place] PARTIAL THROMBOPLASTIN 2019-12-23 17:20:00 Dinakar, Pierce Floyd on [facility] TIME (PTT) Blayne AMYLASE LEVEL 2019-12-23 16:36:00 Dinakar, Pierce ledesma Blayne BASIC METABOLIC PANEL 2019-12-23 16:36:00 Dinakar, Pierce langley Church Blayne HEPATIC FUNCTION PANEL 2019-12-23 16:36:00 Dinakar, Pierce Floyd on [facility] [place] LIPASE LEVEL 2019-12-23 16:36:00 Dinakar, Pierce Treviño odist Blayne LIPID PANEL 2019-12-23 16:36:00 Dinakar, Pierce Treviño odist Blayne MAGNESIUM LEVEL 2019-12-23 16:36:00 Dinakar, Pierce Treviño odist Blayne PHOSPHORUS LEVEL 2019-12-23 16:36:00 Dinakar, Pierce Hayden Met dina Cisneros PREALBUMIN LEVEL 2019-12-23 16:36:00 Dinakar, Pierce Cisneros ESTIMATED GFR 2019-12-23 16:36:00 Dinakar, Pierce Hayden Meth odist Blayne POC CREATININE 2019-12-23 12:28:00 Angela Roper on [facility] ESTIMATED GFR 2019-12-23 12:28:00 Angela Roper on [facility] Plan of Care Planned Activity Planned Date Details Comments Source Future Scheduled 2021-03-12 INFLUENZA VACCINE [place] [facility] 00:00:00 [code = INFLUENZA VACCINE] Future Scheduled 2019-10-08 Screening for [facility] 00:00:00 malignant neoplasm of cervix (procedure) [code = 504498566] Future Scheduled 2018-10-17 BREAST CANCER [facility] 00:00:00 SCREENING [code = BREAST CANCER SCREENING] Future Scheduled 2011 COLONOSCOPY SCREENING [place] [facility] 00:00:00 [code = COLONOSCOPY SCREENING] Future Scheduled 2011 SHINGLES VACCINES [place] [facility] 00:00:00 (#1) [code = SHINGLES VACCINES (#1)] Future Scheduled 1977 COVID-19 VACCINE (1) [facility] d[facility] Test 00:00:00 [code = COVID-19 VACCINE (1)] Encounters Start End Encounter Admission Attending Care Care Encounter Source Date/Time Date/Time Type Type Clinicians Facility Department ID 2020-12-13 2020-12-13 Outpatient [facility] [id number] LALITA Houser 00:00:00 00:00:00 [facility] 2020-11-22 2020-11-23 Outpatient [facility] [id number] [facility] 00:00:00 00:00:00 Brandi PIERSON [facility] 2020-11-17 2020-11-17 [facility] [id number] LALITA Houser 00:00:00 00:00:00 [facility] 2020-11-02 2020-11-02 Outpatient JOSE, [facility] [id number] [facility] 00:00:00 00:00:00 CALOS [address] 2020-11-02 2020-11-02 Outpatient GALATI, [facility] [id number] [facility] 00:00:00 00:00:00 CALOS [address] 2020-10-262020-10-26 Outpatient TELLO, [facility] [id number] [facility] 00:00:00 00:00:00 AGUSTÍN [address] 2020-10-26 2020-10-26 Outpatient TELLO, [facility] [id number] [facility] 00:00:00 00:00:00 AGUSTÍN [address] 2020-10-23 2020-10-24 Inpatient GARRETAKAR, [facility] [id number] [facility] 00:00:00 00:00:00 PIERCE [address] 2020-10-11 2020-10-11 Outpatient [facility] [id number] [facility] 2020-10-09 2020-10-09 Emergency AICHA, [facility] [id number] [facility] 00:00:00 00:00:00 FABIAN [address] 2020-10-03 2020-10-03 Outpatient STLMLC [facility] [id number] [facility] 00:00:00 00:00:00 [facility] 2020-09-19 2020-09-21 Inpatient JENNIFER GHOSH [place] [id number] [facility] 00:00:00 00:00:[address] 2020-09-14 2020-09-14 Outpatient [facility] [id number] [facility] 2020-08-31 2020-09-02 Inpatient DINAKAR, [place] [id number] [facility] 00:00:00 00:00:00 PIERCE [address] 2020-08-10 2020-08-13 Inpatient YORK, [facility] [id number] [facility] 00:00:00 00:00:00 HERIBERTO [address] 2020-08-09 2020-08-09 Emergency NUSZEN, [facility] [id number] [facility] 00:00:00 00:00:00 ROMERO [address] 2020-08-08 2020-08-08 Emergency WEIBEL, [facility] [id number] [facility] 00:00:00 00:00:00 JANELLE [address] 2020-07-27 2020-07-27 Outpatient [facility] [id number] [facility] 2020-07-18 2020-07-18 Outpatient [facility] [id number] [facility] 00:00:00 00:00:[address] 2020-07-04 2020-07-07 Inpatient JENNIFER GHOSH [facility] [id number] [facility] 00:00:00 00:00:[address] 2020-06-28 2020-06-28 Outpatient [facility] [id number] [facility] 2020-06-20 2020-06-20 Outpatient [facility] [id number] [facility] 2020-05-30 2020-06-03 Inpatient JENNIFER GHOSH [facility] [id number] [facility] 00:00:00 00:00:[address] 2020-05-27 2020-05-27 Outpatient YALAMANCHIL [facility] [id number] [facility] 00:00:00 00:00:00 CINDY Torres [address] 2020-05-20 2020-05-20 Outpatient STLMLC [facility] [id number] [facility] 00:00:00 00:00:00 [facility] 2020-05-13 2020-05-17 Inpatient MCCARTAN, [facility] [id number] [facility] 00:00:00 00:00:[address] [facility] [address] 2020-04-13 2020-04-21 Inpatient MARBELLA, [facility] [id number] [facility] 00:00:00 00:00:00 JUNO [address] 2020-04-13 2020-04-13 [facility] [id number] 16:02:00 16:02:00 t [employer] [facility] Medicine l Medicine Outpati ent Clinics 2020-04-13 2020-04-13 [facility] [id number] 09:33:00 09:33:00 t [employer] [facility] Out[facility] Clinics 2020-04-05 2020-04-05 [facility] [id number] 09:10:00 09:10:00 t [place] [employer] s - Drive [facility] Medicine l Medicine Outpati ent Clinics 2020-04-04 2020-04-04 [facility] [id number] 10:58:00 10:58:00 t [place] [employer] s - Drive [facility] Medicine l Medicine Outpati ent Clinics 2020-04-04 2020-04-04 [facility] [id number] 10:00:00 10:00:00 t [employer] [facility] Medicine l Medicine Outpati ent Clinics 2020-03-17 2020-03-19 Inpatient [facility] [id number] [facility] 00:00:00 00:00:00 Ben PIERSON [facility] 2020-03-16 2020-03-16 [facility] [id number] 11:12:00 11:12:00 t [employer] [facility] Medicine Outpati ent Clinics 2020-03-14 2020-03-14 Outpatient JACQU[facility]INFORMERLY [facility] [id number] [facility] 00:00:00 00:00:00 ANGELA [address] 2020-03-10 2020-03-10 [facility] [id number] 13:18:00 13:18:00 t [employer] [facility] Medicine l Medicine Outpati ent Clinics 2020-03-07 2020-03-07 [facility] [id number] 16:07:00 16:07:00 t [employer] s - Drive [facility] Medicine l Medicine Outpati ent Clinics 2020-03-04 2020-03-04 [facility] [id number] 11:00:00 11:00:00 t [place] [employer] [facility] Medicine l Medicine Outpati ent Clinics 2020-03-04 2020-03-04 [facility] [id number] 11:00:00 11:00:00 t [employer] [facility] 2020-03-04 2020-03-04 Outpatient BARRY, [facility] [id number] [facility] 00:00:00 00:00:00 JAAXELSIMHA 578 Meth erasto 2020-02-18 2020-02-21 Inpatient YORK, [facility] [id number] [facility] 00:00:00 00:00:00 HERIBERTO 304 Method i 2020-01-18 2020-01-20 Inpatient DINAKAR, [facility] [id number] [facility] 00:00:00 00:00:00 PIERCE 881 Method i 2020-01-07 2020-01-11 Inpatient YORK, [facility] [id number] Dell 00:00:00 00:00:00 HERIBERTO 087 Method i 2019-12-29 2019-12-29 [facility] [id number] [facility] 07:03:00 07:03:00 t [employer] [facility] ent [facility] 2019-12-23 2019-12-25 Inpatient TING [facility] [id number] [facility] 00:00:00 00:00:00 PIERSON, 540 Method i BAYLEE 2019-12-23 2019-12-23 Outpatient JACQUELIN, [facility] [id number] [facility] 00:00:00 00:00:00 AHMED 960 Method i 2019-12-22 2019-12-22 Office Daija [facility] [id number] 14:08:03 14:56:41 Visit [facility] [id number] Surgical [id number] Specialti [id number] es 198 [place] 2019-10-12 2019-10-15 Inpatient YORK, [facility] [id number] Dell 00:00:00 00:00:00 HERIBERTO 906 Method i 2019-09-01 2019-09-03 Inpatient YORK, [facility] [id number] [facility] 00:00:00 00:00:00 HERIBERTO 637 Method i 2019-07-20 2019-07-20 [facility] [id number] 14:02:00 14:02:00 t [employer] [facility] l Medicine Outpati ent Clinics 2019-07-16 2019-07-16 [facility] [id number] 13:15:00 13:15:00 t [employer] [facility] Medicine l Medicine Outpati ent Clinics 2019-06-16 2019-06-18 Inpatient YORK, [facility] [id number] [facility] 00:00:00 00:00:00 HERIBERTO [address] 2019-05-07 2019-05-08 Outpatient DARCY, [facility] [id number] [facility] 00:00:00 00:00:[address] 2019-04-23 2019-04-23 Outpatient GALATI, [facility] [id number] [facility] 00:00:00 00:00:00 CALOS [address] 2019-04-23 2019-04-23 Outpatient JACQUELIN, [facility] [id number] [facility] 00:00:00 00:00:00 AHMED [address] 2019-04-15 2019-04-15 [facility] [id number] 14:19:00 14:19:[address] [employer] [facility] Medicine Outpati ent Clinics 2019-04-09 2019-04-09 [facility] [id number] 14:00:00 14:00:00 t [employer] [facility] Medicine l Medicine Outpati ent Clinics 2018-09-09 2018-09-09 [facility] [id number] 14:45:00 14:45:00 t [employer] s [employer] [facility] Medicine l Medicine Outpati ent Clinics 2018-04-15 2018-04-15 [facility] [id number] 12:02:00 12:02:00 t [employer] s [employer] [facility] Medicine l Medicine Outpati ent Clinics 2018-02-19 2018-02-19 [facility] [id number] 15:08:00 15:08:00 t [employer] [facility] Medicine l Medicine Outpati ent Clinics 2018-01-24 2018-01-24 Out[facility] [id number] [facility] 11:15:00 11:15:00 [facility] Results Test Description Test Time Test Comments Results Result [facility] e Comments CT Head Wo 2020-11-10 [facility], [facility] Contrast [address] 18:33:43 Incoming - 11/22/2020 6:36 PM CDT EXAMINATION: CT HEAD WO CONTRASTCLINICAL HISTORY: Headache intracranial hemorrhage suspectedCOMPARISON: CT brain dated September 20, 2019TECHNIQUE: Noncontrast enhanced images of the brain were obtained from the skull base to the vertex. Both soft tissue and bone reconstruction algorithms were performed. CT imaging was performed with iterative reconstruction technique and/or automated exposure control to reduce radiation dose.FINDINGS:The brain parenchyma has no acute lesion. The gomez-white matter differentiation is preserved. No evidence of acute intra or extra-axial hemorrhage, mass, mass effect or acute territorial infarction. There is no acute hydrocephalus. Basal cisterns are patent. No significant change from prior exam identified. No acute parenchymal trauma appreciated.No acute soft tissue hematoma or laceration.Paranasal sinuses shows no acute air-fluid levels. Mastoid air cells are clear. No skull fractures or aggressive bony lesions. A retention cyst is again incidentally noted in the inferior right maxillary sinus.IMPRESSION:No acute intracranial abnormality identified. Findings are stable to prior exam.[facility]-[id number] XR Abdomen Acute 2020-10-11 Interface, [facility] on Inc Chest [address] 18:06:06 Incoming - 11/02/2020 6:09 PM CDT EXAMINATION: XR ABDOMEN ACUTE INC CHEST 1VCLINICAL HISTORY: G25.2 Other specified forms of tremor, Cough persistentCOMPARISON: Chest x-ray 10/23/2020IMPRESSION:Si ngle frontal view of the chest reveals stable prominence of cardiac silhouette. Pulmonary vasculature has slightly improved. Lung volumes remain decreased although without a consolidative process. Pleural margins are sharp. Remainder of the examination is unchanged.Frontal views of the abdomen reveal a nonspecific bowel gas pattern. TIPS stent in place. Also status post cholecystectomy and herniorrhaphy. No abnormal masses are readily identified. Presumed pelvic phleboliths are seen. Remainder of the examination is unremarkable.[facility] [id number] NM Brain Spect W 2020-10-10 [facility] on I 123 Datscan 8 Radiology Results Hudson ledesma 16:54:45 Incoming - 10/27/2020 4:57 PM CDT Procedure: NM BRAIN SPECT W I 123 DATSCANClinical History: G25.2 Other specified forms of tremor, G25.2 Comparison: No relevant imaging available for comparison.Technique: The patient was given 3 drops of Lugol's solution orally to protect the thyroid. The patient was then injected with 5 mCi of [id number] intravenously. SPECT imaging of the brain was performed approximately 4 hours later.Findings:Normal uptake bilaterally in the caudate and putamen. Impression:Normal DaTscan. No evidence of a neurodegenerative parkinsonian syndrome.[facility]-[id number] Z XR Chest 1 Vw 2020-10-10 [facility] [address] 19:20:20 Incoming - 10/23/2020 7:23 PM CDT EXAMINATION: [...] appears similar to previous.IMPRESSION: No definite adverse changeUNIVERSITY H[facility]ALS [facility]-[id number] ECG 12 lead 2020-10-09 21:10:53 Test Item Value Reference Range Interpretation Comme nts Ventricular rate (test code = 253) 92 Atrial rate (test code = 255) 92 AR interval (test code = 266) 152 QRSD interval (test code = 260) 78 QT interval (test code = 264) 362 QTC interval (test code = 265) 447 P axis 1 (test code = 267) 35 QRS axis 1 (test code = 268) 10 T wave axis (test code = 270) 14 EKG impression (test code = 273) Normal sinus rhythm-Cannot rule ou t Anterior infarct , age undetermined-Abnormal ECG-In automated comparison with ECG of 20-SEP-2020 06:08,-No significant change was found- [facility] MethodistCT Pelvis Wo [id number] 01:22:19Hm Interface, Radiology Results Incoming - 09/20/2020 [...] or fluid collection.Status-post abdominal hernia repair with mesh.[facility] MethodistCT Cervical Spine Wo [id number] 00:53:43Hm Interface, Radiology Results Incoming - 09/20/2020 12:56 AM CST EXAMINATION: CT CERVICAL [...] abnormalities on the basis of this examination. [facility] [id number] 22:41:53 Test Item Value Reference Range Interpretation Comments Urine culture (test SEE COMMENT Bacteriu yuki screen code = [id number]) negative. [facility] MethodistCRITICAL [id number] 22:05:41Robby Perez MD 09/22/2020 1:29 AMCritical CarePerformed [...] another provider.: Toni MarquezXR Knee 3 Vw [id number] 20:14:56Hm Interface, Radiology Results 09/19/2020 8:18 PM CST EXAMINATION: XR KNEE 3 VW RIGHT, XR KNEE 3 VW LEFTCLINICAL HISTORY: fallCOMPARISON: Right knee x-ray October 12, 2019IMPRESSION:3 views of the right knee. 3 views of the left knee. Mineralization is normal. No acute fracture or dislocation. No erosions. No significant joint effusions. Overlying soft tissues unremarkable. Chronic healed fracture of the proximal left fibula.[facility]-[id number] MethodistXR Knee 3 Vw [id number] 20:14:56Hm Interface, Radiology Results Incoming 09/19/2020 8:18 PM CST EXAMINATION: XR KNEE 3 VW RIGHT, XR KNEE 3 VW LEFTCLINICAL HISTORY: fallCOMPARISON: Right knee x-ray October 12, 2019IMPRESSION:3 views of the right knee. 3 views of the left knee. Mineralization is normal. No acute fracture or dislocation. No erosions. No significant joint effusions. Overlying soft tissues unremarkable. Chronic healed fracture of the proximal left fibula.[facility]-[id number] [facility] HospitalistXR Shoulder 2+ Vw [id number] 20:13:19Hm Interface, Radiology Results Incoming 09/19/2020 8:16 PM CST EXAMINATION: XR SHOULDER 2 VW RIGHTCLINICAL HISTORY: fallCOMPARISON: None.IMPRESSION:3 views of the right shoulder. Mineralization is normal. No acute fracture or dislocation. No erosions. Overlying soft tissues unremarkableST. VINCENT'S [id number] MethodistXR Pelvis 1 Or 2 [id number] 15:53:17Hm Interface, Radiology Results 08/31/2020 3:56 PM CST EXAMINATION: XR PELVIS 1 OR 2 VWCLINICAL HISTORY: Pelvic traumaCOMPARISON: CT abdomen pelvis 08/08/2020IMPRESSION:1.Femoral heads are seated well within the acetabula with mild bilateral hip joint osteoarthritis. No acute fracture. Normal osseous mineralization.2.Mild bilateral sacroiliac joint osteoarthritis and pubic symphysis degenerative changes. Metallic mesh hernia coils overlie the abdomen.[facility] Chest Wo [id number] 18:17:19Hm Interface, Radiology Results 08/12/2020 6:20 PM CST EXAMINATION: CT CHEST [...] COVID-19 pneumonia.2.Cirrhosis, portal hypertension, TIPS shunt and splenomegaly.[facility] [place]-[id number] MethodistVENIPUNC NEED PHYS SKILL,DX OR RX 2020-08-11 [...] to vein ratio: 43%MidLine Characteristics: Catheter Brand: Bioflo midline External Catheter Length (cm): 0 Internal Catheter Length (cm): 15 Total Catheter Length (cm): 15 Catheter Lot Number: [id number] Catheter Expiration Date: 1Procedure details: Landmarks identified: [...] Patient tolerance of procedure:Tolerated well, no immediate complicationsTexas Health Presbyterian Hospital of [facility] Renal Stone [id number] 18:31:00Hm Interface, Radiology Results Incoming - 08/08/2020 [...] colon do not have any focal inflammatory change.[id number] MethodistECG ED Preliminary Interpretation - Not an [id number] 17:56:48 Janelle Watts MD 08/08/2020 7:07 [facility] ED Preliminary Interpretation - Not an OrderPerformed by: Janelle Watts MDAuthorized by: Janelle Watts MD ECG reviewed by ED Physician in the absence of a stationary engineer apprentice: yes Interpretation: Interpretation: normal Rate: ECG rate: 70 ECG rate assessment: normal Rhythm: Rhythm: sinus rhythm Ectopy: Ectopy: none QRS: QRS axis: Normal QRS intervals: NormalConduction: Conduction: normal ST segments: ST segments: NormalT waves: T waves: normalHoubrandon MethodistXR Chest 1 [id number] 12:40:22Hm Interface, Radiology Results Incoming - 07/04/2020 12:43 PM CSTFormatting of this note might be di fferent from the original.EXAMINATION: XR CHEST 1 VWCLINICAL HISTORY: SOBCOMPARISON: Most Recent Prior at HIMPRESSION:Lines: NoneLungs and pleura: No consolidations. No pleural effusion or pneumothorax.Heart and mediastinum: Stable appearance of cardiomediastinal silhouette. Bones: No suspicious osseous lesions. [facility] [facility] [id number] MethodistXR Hand 3+ Vw [id number] 20:31:08Hm Interface, Radiology Results Incoming - 06/02/2020 [...] multifocal proximal and distal interphalangeal joint osteoarthritis.[id number] [facility]VEN[facility] NEED PHYS SKILL,DX OR [id number] 13:55:27LiJalen RN 06/01/2020 1:57 PMMidline Date/Time: 06/01/2020 [...] to vein ratio: 35MidLine Characteristics: Catheter Brand: Dafiti PROVENA POWER MIDLINE External Catheter Length (cm): 0 Internal Catheter Length (cm): 11 Total Catheter Length (cm): 11 Catheter Lot Number: [id number] Catheter Expiration Date: 1Procedure details: Landmarks identified: [...] tolerance of procedure: Tolerated well, no immediate complicationsDell MethodistCT Abdomen Pelvis Wo [id number] 20:27:58Hm Interface, Radiology Results 05/30/2020 8:[address] ABDOMEN PELVIS [...] Mild splenomegaly.Nonobstructive bilateral nephrolithiasis. Stable right adnexal cyst.[facility]-[id number] MethodUNM Psychiatric CenterI Brain & Orbit W Wo Contrast 2020-05-27 [...] in the brain. Orbits are unremarkable in appearance.[facility]-[id number] MethodistXR Abdomen 1 Vw [id number] 18:59:53Hm Interface, Radiology Results 05/16/2020 7:02 PM CDT EXAMINATION: XR ABDOMEN 1 VW PORTABLEINDICATION: Abd pain unspecified, generalzied abdominal pain rule out constipationCOMPARISON: February 19, 2020IMPRESSION:Nonobstructive bowel gas pattern. Colonic stool burden is within normal limits.Prior ventral hernia repair. TIPS in place. Prior cholecystectomy.[id number] [place] CRITICAL [id number] 15:22:15Vamsi Johnson MD 05/13/2020 5:45 PMCritical CarePerformed [...] another provider.: Toni Marquez MRI Brain Wo [id number] 22:35:58Hm Interface, Radiology Results - 03/18/2020 10:39 PM CDT EXAMINATION: MRI [...] ear cavities are clear.IMPRESSION:No acute intracranial abnormality identified.[facility]-[id number] MethodistCv stress [id number] 05:27:49 Test Item Value Reference Range Interpretation Comments Resting HR (test code 65 = 2257499099) Resting BP (test code 124&62 = 4310955024) Peak MET Achieved 1 (test code = 9721347440) Protocol Name (test DOBUT/ECHO code = 7617557459) Time in Exercise 00:15:00 Phase (test code = 5921227018) Max Systolic BP (test 182 code = 8380728400) Max Diastolic BP 69 (test code = 8788581864) Max Heart Rate (test 137 code = 4856492883) Max Predicted Heart 162 Rate (test code = 3996060330) Target HR Formula (220 - Age)*100% (test code = 8055287754) Test Indication (test LIVER TRANSPLANT code = 1073527510) Arrhy During Ex (test code = 3118739105) ECG Interp Before EX (test code = 2521261245) ECG Interp During Ex (test code = 8528752606) Ex Summary Comment (test code = 0472179908) Overall HR Response to Exercise (test code = 1948226325) Overall BP Response To Exercise (test code = 6571060146) Reason for Protocol Complete Termination (test code = 9541444621) Stress Test -Waveform interpreted in Impression (test code report associated with = 1600351287) image study. No interpretation is provided as part of this Stress ECG report.-Electronically Signed By Owen FRANKLIN, Scott Wiseman ([id number]), editorial clerk Marisol Hicks ([id number]) on 03/15/2020 5:27:46 AM [facility] MarquezTransthoracic Echocardiogram Stress, (w Doppler, w Contrast if needed)2020-03-14 14:03:00Interface, Radiology Results In - 03/14/2020 2:03 PM CDT Stress Echocardiography Report [address], [place], [place] [address] Stress ECG tracings are available in [employer] and [employer] All ECG interpretations are included in this report Pat.Name: SUDARSHAN GREGORY Pat.ID: [id number] .Date: 03/14/2020 Refer.MD: ANGELA ROPER MD Exam Time: 10:00:00 AM Study Type:Stress Echo Height: 59in Weight: 200lb BSA:1.85 m2 Age: 11 1960,59Y Sex: FEMALE BP: 124/62 HR: 62 bpm Sonogrphr: Janelle Mills, RDCS, RVTPat. Stat.:Outpatient Room: [facility] 16 Study Status:Final Echo Event ID:[id number] Order ID: [id number] Reason for Study:Liver transplant candidate History / Clinical:Edema, CirrhosisProcedures: Intravenous Definity Contrast, Stress Echo/Dobutamine andColorflow DopplerRace: C -------SUMMARY: Overall Stress Interp: Normal Stress echo. No evidence of ischemia at 84% of maximal predicated HR.Normal dobutamine stress echocardiogram despiteachieving only 84% ofmaximum predicted heart rate. Rate-pressure product sufficient [id number].--------- FINDINGS: Resting FindingsLV: LVsize is normal. LV [...] MaxBP 168/72 O2 Sat 96 %Max RPP [id number] Symptoms and Complications:Arrhythmias PVCsReason for Stopping Test: [...] our normal population YANY SUREMENTS: 2DParasternal Long [place] Ao An 1.8 cm LVPWd 0.7 cm [...] 02:03 Ernesto Segura MethodistXR Foot 3+ Vw [id number] 21:41:47Hm Interface, Radiology Results Incoming - 01/18/2020 [...] spur. 3. No focal soft tissue abnormality. [facility]-[id number] MethodistXR Foot 2 Vw [id number] 19:24:20Hm Interface, Radiology Results Incoming - 01/10/2020 [...] interphalangeal joints of the second through fifth digits.[facility]-[id number] Method[facility] cardiac calcium [id number] 14:07:00Interface, Radiology Results In - 12/28/2019 10:28 AM CDT Nuclear Cardiology and CardiacCT [address] [place] [address] CT Calcium Scoring ReportPat.Name: SUDARSHAN GREGORY Pat.ID: [id number] .Date: 12/25/2019 Refer.MD: ANGELA ROPER MD Exam Time: 1:10:00 PM Study Type:CT Calcium Scoring Height: 59in Weight: 195lb BSA: 1.83 m2 DOBAge: 1960,59Y Sex: FEMALE HR: 152 bpm Nuclear Tech:RT Darrell(R)(CT)Pat. Stat.:Inpatient Nuclear Event ID:[id number] Order ID: [id number] Reason for Study:Liver Transplant CandidateProcedures: CT Flash Mode Race: C SUMMARY:---- Technique: Sequential 3mm CT cuts were obtained through the chest using [facility] Hive guard unlimitedom Vuze CT scanner with ECG gating. Interactive imageviewing [...] preventative strategies. ---FINDINGS: Signed 12/25/2019 2:07:00 PMSu Ernesto Renteria MethodistVENIPUNC NEED PHYS SKILL,DX OR [id number] 14:11:08Samanta Ravi RN 12/24/2019 2:12 PMMidlineDate/Time: 12/24/2019 [...] Catheter Length (cm): 12 Catheter Lot Number: [id number] Catheter Expiration Date: 1Procedure Details: Landmarks identified: [...]
[2020-12-15 22:14] LABS: Absolute Lymphocytes (CBC) 0.6 K/uL (0.7-4.9); Basophils % 0.4 % (0-1.3); Hematocrit 29.9 % (36.0-45.0); Lymphocytes % 12.8 % (15.3-44.8); MPV 9.1 fL (7.6-11.3); RBC Red Blood Cell Count 3.73 M/uL (3.86-4.86)
[2020-12-15] MEDS ORDERED: NA CHLORIDE 0.9% 500 ML ONE (22:18)
[2020-12-15 22:20] LABS: Protime INR 1.23
[2020-12-15 22:31] LABS: ALT/SGPT 23 U/L (12-78); AST/SGOT 19 U/L (15-37); Albumin 3.4 g/dL (3.4-5.0); Alkaline Phosphatase 87 U/L (45-117); BUN Blood Urea Nitrogen 13 mg/dL (7-18); Bicarbonate 22 mmol/L (21-32); Bilirubin Direct 0.4 mg/dL (0-0.2); Bilirubin Total 1.2 mg/dL (0.2-1.0); Glucose Level 98 mg/dL (74-106); Magnesium 2.1 mg/dL (1.8-2.4); Potassium 3.5 mmol/L (3.5-5.1); Protein, Total 7.2 g/dL (6.4-8.2); Sodium Level 146 mmol/L (136-145); Troponin (Emerg Dept Use Only) < 0.02 ng/mL (0.0-0.045)
--- NOTE | 2020-12-15 23:21 | ER ---
Nurse's Notes [facility] Name: Bella Barron Age: 60 yrs Sex: Female : 1960 Arrival Date: 12/15/2020 Time: 20:34 Bed 5 Private MD: Diagnosis: Encephalopathy, unspecified;Altered mental status, unspecified Presentation: 12/15 20:45 Chief complaint: Patient states: Had Abiodun and Abiodun Covid Vaccine today, I feel ca1 real bad. I slept all day, I can't eat cause am nauseous, am shaking a lot and I am so confused. Coronavirus screen: Client denies travel out of the [place] in the last 14 days. At this time, the client does not indicate any symptoms associated with coronavirus-19. Ebola Screen: Patient negative for fever greater than or equal to 101.5 degrees Fahrenheit, and additional compatible Ebola Virus Disease symptoms Patient denies exposure to infectious person. Patient denies travel to an Ebola-affected area in the 21 days before illness onset. No symptoms or risks identified at this time. Initial Sepsis Screen: Does the patient meet any 2 criteria? No. Patient's initial sepsis screen is negative. Does the patient have a suspected source of infection? No. Patient's initial sepsis screen is negative. Risk Assessment: Do you want to hurt yourself or someone else? Patient reports no desire to harm self or others. Onset of symptoms was December 15, 2020. 20:45 Method Of Arrival: Wheelchair ca1 20:45 Acuity: OLEG 3 ca1 Historical: - Allergies: 20:48 Iodine; ca1 20:48 Phenergan; ca1 20:48 Rocephin; ca1 - PMHx: 20:48 Cirrhosis; Colitis; Crohn's; Depression; Liver disease; needs kidney and liver ca1 transplant; ocd; - PSHx: 20:48 TIPS; Cholecystectomy; ; ca1 - Immunization history:: abiodun and abiodun Flu vaccine is not up to date. - Social history:: Smoking status: Patient denies any tobacco usage or history of. Screenin:00 Abuse screen: Denies threats or abuse. Nutritional screening: No deficits noted. jb4 Tuberculosis screening: No symptoms or risk factors identified. Fall Risk None identified. Assessment: 21:00 General: Appears in no apparent distress. uncomfortable, Behavior is calm, cooperative, jb4 appropriate for age. Pain: Complains of pain in right upper quadrant Pain does not radiate. Pain currently is 8 out of 10 on a pain scale. Quality of pain is described as sharp. Neuro: Level of Consciousness is awake, alert, obeys commands, Oriented to person, place, time, situation. Cardiovascular: Patient's skin is warm and dry. Respiratory: Airway is patent Respiratory effort is even, unlabored, Respiratory pattern is regular, symmetrical. GI: No signs and/or symptoms were reported involving the gastrointestinal system. : No signs and/or symptoms were reported regarding the genitourinary system. EENT: No signs and/or symptoms were reported regarding the EENT system. Derm: Skin is intact, Skin is pink, warm \T\ dry. Musculoskeletal: Circulation, motion, and sensation intact. Range of motion: intact in all extremities. 22:00 Reassessment: Patient appears in no apparent distress at this time. Patient and/or jb4 family updated on plan of care and expected duration. Pain level reassessed. Patient is alert, oriented x 3, equal unlabored respirations, skin warm/dry/pink. 23:00 Reassessment: Patient appears in no apparent distress at this time. Patient and/or jb4 family updated on plan of care and expected duration. Pain level reassessed. Patient is alert, oriented x 3, equal unlabored respirations, skin warm/dry/pink. 12/16 00:00 Reassessment: Patient appears in no apparent distress at this time. Patient and/or jb4 family updated on plan of care and expected duration. Pain level reassessed. Patient is alert, oriented x 3, equal unlabored respirations, skin warm/dry/pink. 01:00 Reassessment: Patient appears in no apparent distress at this time. Patient and/or jb4 family updated on plan of care and expected duration. Pain level reassessed. Patient is alert, oriented x 3, equal unlabored respirations, skin warm/dry/pink. 02:00 Reassessment: Patient appears in no apparent distress at this time. Patient and/or jb4 family updated on plan of care and expected duration. Pain level reassessed. Patient is alert, oriented x 3, equal unlabored respirations, skin warm/dry/pink. Vital Signs: 12/15 20:45 BP 133 / 79; Pulse 92; Resp 16 S; Temp 99.1(O); Pulse Ox 99% on R/A; ca1 22:00 BP 121 / 69; Pulse 86; Resp 18; Pulse Ox 100% on R/A; jb4 23:30 BP 113 / 86; Pulse 88; Resp 16; Pulse Ox 100% ; jb4 12/16 00:15 BP 99 / 81; Pulse 95; Resp 16; Pulse Ox 100% on R/A; jb4 02:00 BP 132 / 74; Pulse 77; Resp 16; Pulse Ox 100% on R/A; jb4 ED Course: 12/15 20:34 Patient arrived in ED. am4 20:47 Triage completed. ca1 20:48 Arm band placed on right wrist. ca1 21:00 Patient has correct armband on for positive identification. Bed in low position. Call jb4 light in reach. Side rails up X 1. Pulse ox on. NIBP on. 21:12 Leon Lowery RN is Primary Nurse. jb4 21:21 James Busby PA is PHCP. cp 21:21 Ashok Romano MD is Attending Physician. cp 22:00 Inserted saline lock: 18 gauge in right antecubital area, using aseptic technique. jb4 Blood collected. 22:55 CT Head Brain wo Cont In Process Unspecified. EDMS 23:20 Erick Rascon PA is Hospitalizing Provider. cp 12/16 02:29 No provider procedures requiring assistance completed. Patient admitted, IV remains in jb4 place. Administered Medications: 12/15 22:04 Drug: NS 0.9% 500 ml Route: IV; Rate: bolus; Site: right antecubital; jb4 12/16 03:32 Follow up: IV Status: Completed infusion; IV Intake: 500ml jb4 01:30 Drug: TORadol - (ketorolac) 15 mg Route: IVP; Site: right antecubital; jb4 03:29 Follow up: Response: No adverse reaction; Marked relief of symptoms jb4 03:17 Drug: fentaNYL (PF) 25 mcg Route: IVP; Infused Over: 2 mins; Site: right antecubital; tl1 03:29 Follow up: Response: No adverse reaction; Marked relief of symptoms; Pain is decreased jb4 Intake: 03:32 IV: 500ml; Total: 500ml. jb4 Outcome: 12/15 23:21 Decision to Hospitalize by Provider. onel 12/16 03:30 Admitted to Med/surg accompanied by tech, via stretcher, with chart, Report called to madie Bal RN Condition: stable Instructed on the need for admit. 03:33 Patient left the ED. madie Signatures: Dispatcher [employer] EDMS Iva Ramos RN RN tl1 James Busby PA PA cp Leon Lowery RN RN jb4 Alycia Paulino RN RN ca1 Dilcia Uribe Corrections: (The following items were deleted from the chart) 12/15 20:48 20:45 Chief complaint: Patient states: Had Abiodun and Abiodun Covid Vaccine today, I ca1 feel real bad. I slept all day, I can't eat cause am nauseous, am shaking a lot. ca1
--- NOTE | 2020-12-15 23:21 | EDPHYS ---
Physician Documentation [facility] Name: Bella Barron Age: 60 yrs Sex: Female : 1960 Arrival Date: 12/15/2020 Time: 20:34 Bed 5 Private MD: ED Physician Ashok Romano HPI: 12/15 21:50 This 60 yrs old Female presents to ER via Wheelchair with complaints of cp Possible reaction to vaccine. 21:50 The patient presents with decreased mental status. Onset: The symptoms/episode cp began/occurred today. Possible causes: Patient reports receiving Steven and Steven COVID vaccination earlier today. 21:50 Associated signs and symptoms: Pertinent positives: nausea, vomiting, weakness, cp Pertinent negatives: abdominal pain, chest pain, dizziness, headache. Current symptoms: In the emergency department the patient's symptoms are unchanged from the initial presentation, despite home interventions. Patient's baseline: Neuro: alert and fully oriented, Motor: no deficits, Speech: normal. Historical: - Allergies: 20:48 Iodine; ca1 20:48 Phenergan; ca1 20:48 Rocephin; ca1 - PMHx: 20:48 Cirrhosis; Colitis; Crohn's; Depression; Liver disease; needs kidney and liver ca1 transplant; ocd; - PSHx: 20:48 TIPS; Cholecystectomy; ; ca1 - Immunization history:: steven and steven Flu vaccine is not up to date. - Social history:: Smoking status: Patient denies any tobacco usage or history of. ROS: 22:00 Constitutional: Negative for body aches, chills, fever, poor PO intake. cp Exam: 22:05 Constitutional: The patient appears in no acute distress, alert, awake, cp non-diaphoretic, non-toxic, well developed, well nourished, obese. 22:05 Head/Face: Normocephalic, atraumatic. cp 22:05 Eyes: Periorbital structures: appear normal, Pupils: equal, round, and reactive to light and accomodation, Extraocular movements: intact throughout, Conjunctiva: normal, no exudate, no injection, Sclera: no appreciated abnormality, Lids and lashes: appear normal, bilaterally. 22:05 ENT: External ear(s): are unremarkable, Nose: is normal, Mouth: Lips: dry, Oral mucosa: moist, Posterior pharynx: Airway: no evidence of obstruction, patent. 22:05 Neck: ROM/movement: is normal, is supple, without pain, no range of motions limitations. 22:05 Chest/axilla: Inspection: normal, Palpation: is normal, no crepitus, no tenderness. 22:05 Cardiovascular: Rate: normal, Rhythm: regular, Edema: is not appreciated, JVD: is not appreciated. 22:05 Respiratory: the patient does not display signs of respiratory distress, Respirations: normal, no use of accessory muscles, no retractions, labored breathing, is not present, Breath sounds: are clear throughout, no decreased breath sounds, no stridor, no wheezing. 22:05 Abdomen/GI: Inspection: abdomen appears normal, Palpation: abdomen is soft and non-tender, in all quadrants. 22:05 Skin: no rash present. 22:05 Neuro: Orientation: to person, place, Mentation: able to follow commands, slow to respond, Motor: moves all fours, strength is normal, Sensation: no obvious gross deficits. 22:48 ECG was reviewed by the Attending Physician. Vital Signs: 20:45 BP 133 / 79; Pulse 92; Resp 16 S; Temp 99.1(O); Pulse Ox 99% on R/A; ca1 22:00 BP 121 / 69; Pulse 86; Resp 18; Pulse Ox 100% on R/A; jb4 23:30 BP 113 / 86; Pulse 88; Resp 16; Pulse Ox 100% ; jb4 05/07 00:15 BP 99 / 81; Pulse 95; Resp 16; Pulse Ox 100% on R/A; jb4 02:00 BP 132 / 74; Pulse 77; Resp 16; Pulse Ox 100% on R/A; jb4 MDM: 05 21:36 Patient medically screened. cp 23:15 Data reviewed: vital signs, nurses notes, lab test result(s), EKG, radiologic studies, cp CT scan, plain films. Test interpretation: by ED physician or midlevel provider: ECG, plain radiologic studies. Counseling: I had a detailed discussion with the patient and/or guardian regarding: the historical points, exam findings, and any diagnostic results supporting the discharge/admit diagnosis, lab results, radiology results. Response to treatment: the patient's symptoms have mildly improved after treatment, and as a result, I will admit patient. 23:15 Physician consultation: Erick KURTZ was called at 23:15, was contacted at 23:15, cp regarding admission, to the telemetry unit. patient's condition, and will see patient in ED, shortly. 12/15 21:41 Order name: Basic Metabolic Panel 12/15 21:41 Order name: CBC with Diff 12/15 21:41 Order name: LFT's 12/15 21:41 Order name: Magnesium cp 12/15 21:41 Order name: PT-INR 12/15 21:41 Order name: Troponin (emerg Dept Use Only) cp 12/15 21:41 Order name: Urine Microscopic Only 12/15 21:41 Order name: AMMONIA; Complete Time: 22:29 cp 12/15 21:42 Order name: Basic Metabolic Panel; Complete Time: 22:53 EDMS 12/15 22:53 Interpretation: Normal except: NA 146; CL 116; GFR 44. 12/15 21:42 Order name: CBC with Automated Diff; Complete Time: 22:29 EDMS 12/15 22:54 Interpretation: Normal except: RBC 3.73; HGB 9.9; HCT 29.9; MCH 26.6; PLT 102; RDW cp 16.7; LYM% 12.8; MN% 14.9; LYMA 0.6. 12/15 21:42 Order name: Liver (Hepatic) Function; Complete Time: 22:53 EDMS 12/15 21:42 Order name: Magnesium; Complete Time: 22:53 EDMS 12/15 21:42 Order name: Protime (+INR); Complete Time: 22:29 EDMS 12/15 21:42 Order name: Troponin (Emerg Dept Use Only); Complete Time: 22:53 EDMS 12/15 22:54 Interpretation: Reviewed. 12/15 21:41 Order name: EKG; Complete Time: 21:42 cp 12/15 21:41 Order name: Cardiac monitoring; Complete Time: 21:56 cp 12/15 21:41 Order name: EKG - Nurse/Tech; Complete Time: 22:31 cp 12/15 21:41 Order name: IV Saline Lock; Complete Time: 21:57 cp 12/15 21:41 Order name: Labs collected and sent; Complete Time: 21:57 cp 12/15 21:41 Order name: O2 Per Protocol; Complete Time: 21:56 cp 12/15 21:41 Order name: O2 Sat Monitoring; Complete Time: 21:56 cp 12/15 21:42 Order name: Urine Microscopic Only EDWV 12/15 22:29 Order name: CT Head Brain wo Cont cp 12/16 00:48 Order name: SARS-COV-2 RT PCR; Complete Time: 00:51 EDMS EC:48 Rate is 88 beats/min. Rhythm is regular. NE interval is normal. QRS interval is normal. cp QT interval is prolonged at 404 msec. T waves are Inverted in lead aVR. Interpreted by me. Reviewed by me. Administered Medications: 22:04 Drug: NS 0.9% 500 ml Route: IV; Rate: bolus; Site: right antecubital; [facility] 12/16 03:32 Follow up: IV Status: Completed infusion; IV Intake: 500ml [facility] 01:30 Drug: TORadol - (ketorolac) 15 mg Route: IVP; Site: right antecubital; 4 03:29 Follow up: Response: No adverse reaction; Marked relief of symptoms [facility] 03:17 Drug: fentaNYL (PF) 25 mcg Route: IVP; Infused Over: 2 mins; Site: right antecubital; tl1 03:29 Follow up: Response: No adverse reaction; Marked relief of symptoms; Pain is decreased 4 Disposition: 01:00 Chart complete. 06:36 Co-signature as Attending Physician, Ashok Romano MD. mh7 Disposition: 12/15/20 23:21 Hospitalization ordered by Erick Rascon for Inpatient Admission. Preliminary diagnosis are Encephalopathy, unspecified, Altered mental status, unspecified. - Bed requested for Telemetry/MedSurg (Inpatient). - Status is Inpatient Admission. jb4 - Condition is Stable. - Problem is an acute exacerbation. - Symptoms are unchanged. Signatures: Dispatcher [employer] [facility] Iva Ramos RN AMARILIS tl1 James Busby PA PA cp Bryson, James, RN RN [facility] Alycia Paulino RN RN [facility] Ashok Romano MD MD 7 Corrections: (The following items were deleted from the chart) 00:10 12/15 23:27 CORONAVIRUS+MR.LAB.BRZ ordered. EDWV EDWV 12/16 01:27 12/15 23:21 Hospitalization Ordered by Erick KURTZ for Inpatient Admission. tl1 Preliminary diagnosis is Encephalopathy, unspecified; Altered mental status, unspecified. Bed requested for Telemetry/MedSurg (Inpatient). Status is Inpatient Admission. Condition is Stable. Problem is an acute exacerbation. Symptoms are unchanged. cp 12/16 03:33 01:27 12/15/2020 23:21 Hospitalization Ordered by Erick KURTZ for Inpatient jb4 Admission. Preliminary diagnosis is Encephalopathy, unspecified; Altered mental status, unspecified. Bed requested for Telemetry/MedSurg (Inpatient). Status is Inpatient Admission. Condition is Stable. Problem is an acute exacerbation. Symptoms are unchanged. tl1 12/17 00:12/15 23:45 Data reviewed: vital signs, nurses notes, lab test result(s), EKG, cp radiologic studies, CT scan, plain films, cp 12/18 99:12/15 23:45 Test interpretation: by ED physician or midlevel provider: ECG, plain cp radiologic studies, cp 12/18 99:12/15 23:45 Counseling: I had a detailed discussion with the patient and/or guardian cp regarding: the historical points, exam findings, and any diagnostic results supporting the discharge/admit diagnosis, lab results, radiology results, cp 12/18 99:12/15 23:45 Response to treatment: the patient's symptoms have mildly improved after cp treatment, and as a result, I will admit patient, cp
[2020-12-16] MEDS ORDERED: KETOROLAC 30 MG/ML INJ ONE (01:42)
--- NOTE | 2020-12-16 03:11 | P.HP ---
Certification for Inpatient Patient admitted to: Observation With expected LOS: <2 Midnights Patient will require the following post-hospital care: None Practitioner: I am a practitioner with admitting privileges, knowledge of patient current condition, hospital course, and medical plan of care. Services: Services provided to patient in accordance with Admission requirements found in Title 42 Section 412.3 of the Code of Federal Regulations <Erick Rascon - Last Filed: 12/16/20 03:43> Patient History Date of Service: 12/16/20 Reason for admission: AMS History of Present Illness: Ms. Barron is a 60 yo F with alcoholic cirrhosis s/p TIPS procedure and Crohns disease here today for confusion. She reports dizziness, lightheadedness, and vomiting. She says these symptoms started after she received her COVID vaccine. She says she also missed one dose of crystallose because she had to travel to [place] but doubled up on doses when she got home. She is AOx3 but has mild slurring of speech and difficulty concentrating. Ammonia level of 72. She has not been drinking alcohol and is currently on the liver transplant list. - Past Medical/Surgical History Diabetic: No -: Crohn's Disease -: Chronic liver cirrhosis with TIPS procedure -: Depression with anxiety -: Neuropathy -: Insomnia -: Parkinson's -: CKD 3 -: Anemia chronic disease -: Chronic 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 -: Neuropathy -: Insomnia -: Gout -: multiple abdominal surgery due to Crohn's -: TIPS procedure -: Bleeding esophageal varices surgery Psychosocial/ Personal History: Patient disabled, lives with family - Family History Mother -: Blood disorders Notes: recently from blood disease Father -: Heart disease - Social History Smoking Status: Never smoker Alcohol use: No CD- Drugs: No Caffeine use: Yes Place of Residence: Home <Erick Rascon - Last Filed: 12/16/20 03:43> Date of Service: 12/16/20 <Ny Laurent - Last Filed: 12/16/20 13:43> Allergies ceftriaxone [From Rocephin] Allergy (Verified 10/10/20 20:17) Anaphylaxis iodine Allergy (Verified 10/10/20 20:17) Anaphylaxis promethazine [From Phenergan] Allergy (Verified 10/10/20 20:17) Itching Fish Allergy (Uncoded 10/10/20 20:17) Rash Home Medications: Allopurinol 100 mg PO DAILY 04/10/20 Benztropine Mesylate 0.5 mg PO BEDTIME 04/10/20 Carbidopa/Levodopa [Carbidopa-Levodopa 25-100 Tab] 1 tab PO DAILY 04/10/20 Escitalopram Oxalate [Lexapro] 15 mg PO BEDTIME 04/10/20 Furosemide [Lasix] 20 mg PO DAILY 04/10/20 Lactulose [Kristalose] 20 gm PO TID 04/10/20 Ondansetron [Ondansetron Odt] 4 mg PO Q12HP PRN 04/10/20 Pantoprazole [Protonix Tab*] 40 mg PO DAILY 04/10/20 Quetiapine Fumarate [Seroquel] 250 mg PO BEDTIME 04/10/20 Rifaximin [Xifaxan] 550 mg PO BID 04/10/20 Suvorexant [Belsomra] 10 mg PO BEDTIME 04/10/20 Zinc Sulfate [Zinc Sulfate*] 220 mg PO BID 04/10/20 Benztropine Mesylate [Cogentin] 1 tab PO BID 12/16/20 Brexpiprazole [Rexulti] 2 mg PO DAILY 12/16/20 Divalproex ER [Depakote *ER] 1 tab PO BEDTIME 12/16/20 Gabapentin 600 mg PO DAILY 12/16/20 Primidone 50 mg PO DAILY 12/16/20 Rifaximin [Xifaxan] 1 tab PO BID 12/16/20 Spironolactone [Aldactone] 50 mg PO DAILY 12/16/20 Topiramate 50 mg PO BID 12/16/20 Ubrogepant [Ubrelvy] 100 mg PO DAILY PRN 12/16/20 clonazePAM [Clonazepam] 1 tab PO DAILY PRN 12/16/20 Review of Systems General: Malaise, As per HPI Eyes: Unremarkable ENT: Unremarkable Respiratory: Unremarkable Cardiovascular: Light Headedness, As per HPI Gastrointestinal: Nausea, Vomiting, As per HPI Musculoskeletal: Unremarkable Integumentary: Unremarkable Neurological: Confusion, As per HPI Lymphatics: Unremarkable <Erick Rascon - Last Filed: 12/16/20 03:43> Physical Examination - Physical Exam General: Alert, In no apparent distress, Oriented x3, Cooperative HEENT: Atraumatic, Normocephalic, PERRLA, Mucous membr. moist/pink, EOMI, Sclerae nonicteric Neck: Supple, 2+ carotid pulse no bruit, JVD not distended, No Thyromegaly, No LAD Respiratory: Clear to auscultation bilaterally, Normal air movement Cardiovascular: No edema, Normal pulses, Regular rate/rhythm, Normal S1 S2, No gallops, No rubs, No murmurs Capillary refill: <2 Seconds Gastrointestinal: Normal bowel sounds, Soft and benign, Non-distended, No tenderness, No masses, No rebound, No guarding Musculoskeletal: No clubbing, No swelling, No contractures, No erythema, No tenderness, No warmth Integumentary: No rashes, No breakdown, No significant lesion, No tenderness/swelling, No erythema, No warmth, No cyanosis Neurological: Normal speech, Normal strength at 5/5 x4 extr, Normal tone, Sensation intact, Cranial nerves 3-12 intact, Other (mild slurred speech, tremors improved) Lymphatics: No axilla or inguinal lymphadenopathy - Studies Laboratory Data (last 24 hrs) 12/15/20 21:50: PT 14.2 H, INR 1.23 12/15/20 21:50: WBC 4.70, Hgb 9.9 L, Hct 29.9 L, Plt Count 102 L 12/15/20 21:50: Sodium 146 H, Potassium 3.5, BUN 13, Creatinine 1.25, Glucose 98, Magnesium 2.1, Total Bilirubin 1.2 H, AST 19, ALT 23, Alkaline Phosphatase 87 <Eirck Rascon - Last Filed: 12/16/20 03:43> - Studies Laboratory Data (last 24 hrs) 12/15/20 21:50: PT 14.2 H, INR 1.23 12/15/20 21:50: WBC 4.70, Hgb 9.9 L, Hct 29.9 L, Plt Count 102 L 12/15/20 21:50: Sodium 146 H, Potassium 3.5, BUN 13, Creatinine 1.25, Glucose 98, Magnesium 2.1, Total Bilirubin 1.2 H, AST 19, ALT 23, Alkaline Phosphatase 87 <Ny Laurent - Last Filed: 12/16/20 13:43> Assessment and Plan - Problems (Diagnosis) (1) Hepatic encephalopathy Onset Date: 10/03/17 Current Visit: No Status: Acute (2) Anemia Current Visit: No Status: Chronic Qualifiers: Anemia type: other cause Other causes of anemia: chronic disease, other Qualified Code(s): D63.8 - Anemia in other chronic diseases classified elsewhere (3) Chronic renal disease Onset Date: 05/05/18 Current Visit: No Status: Chronic Qualifiers: Chronic kidney disease stage: stage 3 (moderate) (4) Crohn disease Onset Date: 10/03/17 Current Visit: No Status: Chronic Qualifiers: Gastrointestinal tract location: small intestine Digestive disease complication type: without complication Qualified Code(s): K50.00 - Crohn's disease of small intestine without complications - Plan start lactulose 20g q2h until 2-3 BM repeat ammonia level reconcile and continue home medications anemia, stable Crohns, stable SCDs for DVT ppx, monitor platelets Discharge Plan: Home Plan to discharge in: 24 Hours - Advance Directives Does patient have a Living Will: Yes Does patient have a Durable POA for Healthcare: Yes - Code Status/Comfort Care Code Status Assessed: Yes (full code) Critical Care: No Time Spent Managing Pts Care (In Minutes): 70 <Erick Rascon - Last Filed: 12/16/20 03:43> Date of Service: 12/16/20 Chart reviewed and events noted. Agree with findings as mentioned above. Patient's ammonia level is stable. Patient will follow up as an outpatient. Patient follows up in the [place] area with a documentation improvement specialist. Patient is clinically doing much better. Patient doing clinically well and is stable for discharge home. Her will come and pick her up later today. <Ny Laurent - Last Filed: 12/16/20 13:43> <Erick Rascon - Last Filed: 12/16/20 03:43> Diet: Regular Activity: Fall precautions Time spent managing pt's care (in minutes): 55 <Ny Laurent - Last Filed: 12/16/20 13:43> Home Medications: Allopurinol 100 mg PO DAILY 04/10/20 Benztropine Mesylate 0.5 mg PO BEDTIME 04/10/20 Carbidopa/Levodopa [Carbidopa-Levodopa 25-100 Tab] 1 tab PO DAILY 04/10/20 Escitalopram Oxalate [Lexapro] 15 mg PO BEDTIME 04/10/20 Furosemide [Lasix] 20 mg PO DAILY 04/10/20 Lactulose [Kristalose] 20 gm PO TID 04/10/20 Ondansetron [Ondansetron Odt] 4 mg PO Q12HP PRN 04/10/20 Pantoprazole [Protonix Tab*] 40 mg PO DAILY 04/10/20 Quetiapine Fumarate [Seroquel] 250 mg PO BEDTIME 04/10/20 Rifaximin [Xifaxan] 550 mg PO BID 04/10/20 Suvorexant [Belsomra] 10 mg PO BEDTIME 04/10/20 Zinc Sulfate [Zinc Sulfate*] 220 mg PO BID 04/10/20 Benztropine Mesylate [Cogentin] 1 tab PO BID 12/16/20 Brexpiprazole [Rexulti] 2 mg PO DAILY 12/16/20 Divalproex ER [Depakote *ER] 1 tab PO BEDTIME 12/16/20 Gabapentin 600 mg PO DAILY 12/16/20 Primidone 50 mg PO DAILY 12/16/20 Rifaximin [Xifaxan] 1 tab PO BID 12/16/20 Spironolactone [Aldactone] 50 mg PO DAILY 12/16/20 Topiramate 50 mg PO BID 12/16/20 Ubrogepant [Ubrelvy] 100 mg PO DAILY PRN 12/16/20 clonazePAM [Clonazepam] 1 tab PO DAILY PRN 12/16/20
[2020-12-16] MEDS ORDERED: FENTANYL CITR 100 MCG/2 ML ONE (03:20)
[2020-12-16] MEDS ORDERED: ONDANSETRON 4 MG/2 ML VIAL IV PRN (03:46)
[2020-12-16] MEDS ORDERED: MORPHINE 2 MG/ML SYR IV ONE (03:46)
[2020-12-16 04:04] VITALS: BMI 43.9
[2020-12-16 04:24] LABS: Urine Appearance CLOUDY (Clear); Urine Bilirubin NEGATIVE (Negataive); Urine Blood 2+ (Negative); Urine Color YELLOW (Yellow); Urine Glucose NEGATIVE (Negative); Urine Protein NEGATIVE (Negative); Urine Specific Gravity 1.015 (1.005-1.030)
[2020-12-16 04:28] LABS: Urine Microscopic Reflex ORDER UMIC
[2020-12-16 04:40] LABS: Urine Amorphous Sediment 1+ /HPF (NONE SEEN); Urine Bacteria LOADED /HPF (<20); Urine Mucus 2+ /HPF (NONE SEEN)
[2020-12-16 05:02] LABS: Absolute Lymphocytes (CBC) 0.9 K/uL (0.7-4.9); Basophils % 0.9 % (0-1.3); Lymphocytes % 23.7 % (15.3-44.8); MPV 8.4 fL (7.6-11.3); RBC Red Blood Cell Count 3.49 M/uL (3.86-4.86)
[2020-12-16 05:20] LABS: Bilirubin Total 1.3 mg/dL (0.2-1.0); Phosphorus 2.7 mg/dL (2.5-4.9); Potassium 3.5 mmol/L (3.5-5.1); Protein, Total 6.3 g/dL (6.4-8.2); Thyroid Stimulating Hormone 3.54 uIU/mL (0.360-3.740)
[2020-12-16 06:06] VITALS: O2SAT 98
--- NOTE | 2020-12-16 07:49 | EKG ---
Test Date: 2020-12-15 Test Time: 22:29:27 Cracker Off: ELIZABETH MEASUREMENT RESULTS: Intervals: Rate: 87 MT: 168 QRSD: 76 QT: 376 QTc: 452 [place]: P: 61 MT: 168 QRS: 53 T: 43 INTERPRETIVE STATEMENTS: Normal sinus rhythm Nonspecific T wave abnormality Abnormal ECG Compared to ECG 10/10/2020 19:44:20 T-wave abnormality now present Sinus arrhythmia no longer present Electronically Signed On 12-16-20 07:48:13 CDT by Nico Caldwell
[2020-12-16 08:19] VITALS: TEMP 97.3
[2020-12-16 08:51] LABS: Blood Morphology Comment NOTED (NOT SEEN); Platelet Estimate DECR; White Blood Cell Scan OK (OK)
[2020-12-16 08:52] LABS: Anisocytosis SLIGHT
[2020-12-16] MEDS ORDERED: POTASSIUM CL SA 10 MEQ TAB PO ONE (09:00)
--- NOTE | 2020-12-16 10:47 | EKG ---
Test Date: 2020-12-15 Test Time: 22:41:24 Conveyor Installer: ELIZABETH MEASUREMENT RESULTS: Intervals: Rate: 88 MO: 172 QRSD: 82 QT: 404 QTc: 488 [place]: P: 63 MO: 172 QRS: 52 T: 42 INTERPRETIVE STATEMENTS: Normal sinus rhythm Prolonged QT Abnormal ECG Compared to ECG 12/15/2020 22:29:27 Prolonged QT interval now present T-wave abnormality no longer present Electronically Signed On 12-16-20 10:46:37 CDT by Nico Caldwell
[2020-12-16 12:50] VITALS: BP 122/58
--- NOTE | 2020-12-17 09:03 | RAD REPORT ---
EXAM DESCRIPTION: CT - Head Brain Wo Cont - 12/16/2020 6:19 am CLINICAL HISTORY: 60-year-old female with mental status change. COMPARISON: None. TECHNIQUE: CT brain without contrast. This exam was performed according to our departmental dose opt imization program which includes use of automated exposure control, adjustment of the mA and/or kV ac cording to patient size and/or use of iterative reconstruction technique. FINDINGS: The ventricles, sulci, and cisterns are within normal limits. The gomez-white matter diff erentiation is preserved. There is no mass effect, midline shift, intra- or extra-axial fluid colle ction/acute hemorrhage. The osseous structures are unremarkable. The paranasal sinuses reveal opal yp or retention cyst within the RIGHT maxillary sinus otherwise the remaining paranasal sinuses and a nd mastoid air cells are clear. Pontine focus of air lucency is identified incidentally noted within the LEFT cavernous sinus, a finding which can be seen with sequela of venipuncture. IMPRESSION: No acute intracranial abnormalities. Electronically signed by: Marianela Malcolm MD 12/15/2020 11:04 PM CDT Due to temporary technical issues with the PACS/Fluency reporting system, reports are being signed by the in house radiologists without review as a courtesy to insure prompt reporting. The interpreting radiologist is fully responsible for the content of the report.
--- NOTE | 2020-12-24 09:02 | P.DS ---
Discharge Date: 12/16/20 Disposition: ROUTINE DISCHARGE Discharge Condition: GOOD Reason for Admission: AMS Brief History of Present Illness: Ms. Barron is a 60 yo F with alcoholic cirrhosis s/p TIPS procedure and Crohns disease here today for confusion. She reports dizziness, lightheadedness, and vomiting. She says these symptoms started after she received her COVID vaccine. She says she also missed one dose of crystallose because she had to travel to [place] but doubled up on doses when she got home. She is AOx3 but has mild slurring of speech and difficulty concentrating. Ammonia level of 72. She has not been drinking alcohol and is currently on the liver transplant list. Hospital Course: Patient has done well during hospital stay. Patient is clinically doing much better. She feels like she is back to her baseline. She will follow up with her carpet cutter in 1 week. Return to the emergency room if symptoms worsen. Vital Signs/Physical Exam: Temp Pulse Resp BP Pulse Ox 97.3 F 73 16 122/58 L 98 12/16/20 12:00 12/16/20 12:00 12/16/20 12:00 12/16/20 12:00 12/16/20 12:00 General: Alert, In no apparent distress, Oriented x3 Laboratory Data at Discharge: WBC 3.80 K/uL (4.3-10.9) L D 12/16/20 04:29 Hgb 9.0 g/dL (12.0-15.0) L 12/16/20 04:29 Hct 28.0 % (36.0-45.0) L 12/16/20 04:29 Plt Count 90 K/uL (152-406) L 12/16/20 04:29 PT 14.2 SECONDS (9.5-12.5) H 12/15/20 21:50 INR 1.23 12/15/20 21:50 Sodium 147 mmol/L (136-145) H 12/16/20 04:29 Potassium 3.5 mmol/L (3.5-5.1) 12/16/20 04:29 BUN 13 mg/dL (7-18) 12/16/20 04:29 Creatinine 1.15 mg/dL (0.55-1.3) 12/16/20 04:29 Glucose 87 mg/dL (74-106) 12/16/20 04:29 Phosphorus 2.7 mg/dL (2.5-4.9) 12/16/20 04:29 Magnesium 2.0 mg/dL (1.8-2.4) 12/16/20 04:29 Total Bilirubin 1.3 mg/dL (0.2-1.0) H 12/16/20 04:29 AST 20 U/L (15-37) 12/16/20 04:29 ALT 19 U/L (12-78) 12/16/20 04:29 Alkaline Phosphatase 80 U/L (45-117) 12/16/20 04:29 Home Medications: Allopurinol 100 mg PO DAILY 04/10/20 Benztropine Mesylate 0.5 mg PO BEDTIME 04/10/20 Carbidopa/Levodopa [Carbidopa-Levodopa 25-100 Tab] 1 tab PO DAILY 04/10/20 Escitalopram Oxalate [Lexapro] 15 mg PO BEDTIME 04/10/20 Furosemide [Lasix] 20 mg PO DAILY 04/10/20 Lactulose [Kristalose] 20 gm PO TID 04/10/20 Ondansetron [Ondansetron Odt] 4 mg PO Q12HP PRN 04/10/20 Pantoprazole [Protonix Tab*] 40 mg PO DAILY 04/10/20 Quetiapine Fumarate [Seroquel] 250 mg PO BEDTIME 04/10/20 Rifaximin [Xifaxan] 550 mg PO BID 04/10/20 Suvorexant [Belsomra] 10 mg PO BEDTIME 04/10/20 Zinc Sulfate [Zinc Sulfate*] 220 mg PO BID 04/10/20 Benztropine Mesylate [Cogentin] 1 tab PO BID 12/16/20 Brexpiprazole [Rexulti] 2 mg PO DAILY 12/16/20 Divalproex ER [Depakote *ER] 1 tab PO BEDTIME 12/16/20 Gabapentin 600 mg PO DAILY 12/16/20 Primidone 50 mg PO DAILY 12/16/20 Rifaximin [Xifaxan] 1 tab PO BID 12/16/20 Spironolactone [Aldactone] 50 mg PO DAILY 12/16/20 Topiramate 50 mg PO BID 12/16/20 Ubrogepant [Ubrelvy] 100 mg PO DAILY PRN 12/16/20 clonazePAM [Clonazepam] 1 tab PO DAILY PRN 12/16/20 Physician Discharge Instructions: PROBLEM: Cirrhotic Encephalopathy GOAL: Clear understanding of disease process INSTRUCTIONS: Diet: Regular Activity: Fall precautions OK TO DC IV AND DC HOME FOLLOW-UP WITH PRIMARY CARE PROVIDER IN 1-2 WEEKS FOLLOW-UP WITH CARDIOLOGY IN 1-2 WEEKS RETURN TO THE ER IF symptoms worsen CALL or TEXT DR. BANKS AT [phone] IF ANY QUESTIONS REGARDING HOSPITAL STAY. PLEASE CALL THE FLOOR AT [phone] IF ANY MEDICATION OR NURSING QUESTIONS. Diet: Regular Activity: Fall precautions Followup: Nico Caldwell MD [ACTIVE - CAN ADMIT] - Fernando Díaz DO [Primary Care Provider] - Time spent managing pt's care (in minutes): 35
== END 2020-12-16 16:00 | disposition home or self-care (01) ==
LOC: ER 20:29 → ERHOLD 12-16 01:26 → 2ND 12-16 02:55
PROVIDERS: ADMIT Hospitalist; ATTEND Hospitalist
DX: K72.90 Hepatic failure, unspecified without coma (principal); K70.30 Alcoholic cirrhosis of liver without ascites; K50.90 Crohn's disease, unspecified, without complications; F41.9 Anxiety disorder, unspecified; G20 Parkinson's disease; Z20.822 Contact with and (suspected) exposure to COVID-19; D69.59 Other secondary thrombocytopenia; N18.30 Chronic kidney disease, stage 3 unspecified; D63.1 Anemia in chronic kidney disease; G62.9 Polyneuropathy, unspecified; G47.00 Insomnia, unspecified; M10.9 Gout, unspecified
CPT/HCPCS: 96361; 93005 ×2; 87088; 85025 ×2; 87086; 80048; 36415; 82140 ×2; 83735 ×2; 84100; 85610; 80076; 84443; 84484; 84439; 80053; 70450; 94760; 96375; 96374; 99285; U0003; J3010; J2270; J7040; 81003; 81015; G0378

== ENCOUNTER 2021-05-18 15:47 | Observation (INO) | payer OTHER ==
--- NOTE | 2021-05-18 16:55 | RAD REPORT ---
EXAM DESCRIPTION: RAD - Chest Single View - 05/18/2021 4:49 pm CLINICAL HISTORY: COUGH COMPARISON: Portable August 2019 TECHNIQUE: AP portable chest image was obtained 05/18/2021 4:49 pm . FINDINGS: Lungs are clear of mass or consolidation. Interstitial markings are mildly prominent as a baseline, accentuated by slightly shallow inspiration. Heart and vasculature are normal. No measurabl e pleural effusion and no pneumothorax. No acute bony abnormality seen. No acute aortic findings susp ected. IMPRESSION: No acute cardiopulmonary process.
[2021-05-18 17:04] LABS: Absolute Lymphocytes (CBC) 1.2 K/uL (0.7-4.9); Basophils % 0.5 % (0-1.3); Hematocrit 26.5 % (36.0-45.0); Lymphocytes % 27.3 % (15.3-44.8); MPV 8.2 fL (7.6-11.3); RBC Red Blood Cell Count 3.05 M/uL (3.86-4.86)
[2021-05-18 17:09] LABS: Protime INR 1.55
[2021-05-18 17:25] LABS: ALT/SGPT 25 U/L (12-78); AST/SGOT 25 U/L (15-37); Albumin 2.5 g/dL (3.4-5.0); Alkaline Phosphatase 71 U/L (45-117); BUN Blood Urea Nitrogen 10 mg/dL (7-18); Bicarbonate 18 mmol/L (21-32); Bilirubin Direct 0.6 mg/dL (0-0.2); Bilirubin Total 1.5 mg/dL (0.2-1.0); Glucose Level 141 mg/dL (74-106); Lipase 130 U/L (73-393); Magnesium 1.7 mg/dL (1.8-2.4); NT PRO-BNP 82 pg/mL (<125); Potassium 3.4 mmol/L (3.5-5.1); Protein, Total 5.6 g/dL (6.4-8.2); Sodium Level 146 mmol/L (136-145); Troponin (Emerg Dept Use Only) < 0.02 ng/mL (0.0-0.045)
[2021-05-18 17:39] LABS: Anisocytosis 1+; Blood Morphology Comment NOTED (NOT SEEN); Platelet Estimate DECR; White Blood Cell Scan OK (OK)
[2021-05-18 17:39] LABS: Urine Blood Negative (Negative); Urine Glucose Negative (Negative); Urine Protein Negative (Negative); Urine Specific Gravity 1.025 (1.005-1.030); Urine pH 6.5 (5.0-7.0)
--- NOTE | 2021-05-18 18:00 | ER ---
Nurse's Notes [facility] Name: Bella Barron Age: 60 yrs Sex: Female : 1960 Arrival Date: 05/18/2021 Time: 15:48 Bed 25 Private MD: Fernando Díaz Diagnosis: Unspecified cirrhosis of liver-MCFARLANE;Obesity, unspecified;Encephalopathy, unspecified-HEPATIC , MILD;Anemia, unspecified;Hypomagnesemia;Hypokalemia Presentation: 05/18 16:05 Chief complaint: Patient states: Low back pain x 2 days, worse with standing, denies jl7 trauma, does not radiate, denies fever, denies urinary symptoms, denies N/V/D; "Dr. Díaz sent me because I have liver disease and it can be anything.". Coronavirus screen: At this time, the client does not indicate any symptoms associated with coronavirus-19. Ebola Screen: No symptoms or risks identified at this time. Initial Sepsis Screen: Does the patient meet any 2 criteria? No. Patient's initial sepsis screen is negative. Does the patient have a suspected source of infection? No. Patient's initial sepsis screen is negative. Risk Assessment: Do you want to hurt yourself or someone else? Patient reports no desire to harm self or others. Onset of symptoms was May 17, 2021. 16:05 Method Of Arrival: Ambulatory [facility] 16:05 Acuity: OLEG 3 jl7 Triage Assessment: 16:08 General: Appears in no apparent distress. uncomfortable, Behavior is calm, cooperative. jl7 Pain: Complains of pain in low back area Pain does not radiate. Pain currently is 8 out of 10 on a pain scale. Musculoskeletal: pt reports pain with standing. Historical: - Allergies: 16:08 Iodine; jl7 16:08 Phenergan; jl7 16:08 Rocephin; jl7 - PMHx: 16:08 Colitis; Crohn's; Depression; Liver disease; needs kidney and liver transplant; ocd; jl7 20:08 Cirrhosis; dc2 - Immunization history:: Client reports receiving the Abiodun \\T\\ Abiodun single-dose vaccine. - Social history:: Smoking status: Patient denies any tobacco usage or history of. - Family history:: not pertinent. Screenin:24 Abuse screen: Denies threats or abuse. Nutritional screening: No deficits noted. oh Tuberculosis screening: No symptoms or risk factors identified. Fall Risk None identified. Assessment: 16:23 Pain: Complains of pain in back and low back area bilalteral flank. Musculoskeletal: oh Reports pain in back and low back area. 19:10 Reassessment: 1909 Dr. Rossi at bedside to discuss admission, tells Dr. Rossi dc2 that she will agree to stay the night. to go home and get home lactulose at this time. Pt co pain to back. 20:00 Reassessment: Speak to Erick, states is ok to give Morphine 2 mg IVP x 1 dose. dc2 20:53 Reassessment: Pt asking for food, Pt reports no change in pain after 2mg morphine, dc2 states is still the same. WIll notify Provider. Pt appears comfortable, eating a bag of candy in bed. at side. Is taking lactulose at this time from home. 21:26 Reassessment: Attempt to call report, AMARILIS Tim is not available at this time and dc2 will call back. Vital Signs: 16:05 BP 116 / 71; Pulse 81; Resp 17; Temp 98.4; Pulse Ox 100% on R/A; Weight 81.65 kg (R); jl7 Height 4 ft. 11 in. (149.86 cm); Pain 8/10; 18:13 BP 103 / 68; Pulse 79; Resp 16; Pulse Ox 100% ; Pain 8/10; tc5 19:10 BP 107 / 51; Pulse 58; Resp 18; Pulse Ox 100% ; Pain 7/10; dc2 16:05 Body Mass Index 36.36 (81.65 kg, 149.86 cm) jl7 ED Course: 15:48 Patient arrived in ED. am2 15:48 Fernando Díaz, DO is Private Physician. am2 16:08 Triage completed. jl7 16:08 Arm band placed on left wrist. jl7 16:12 Tashia Byrd, AMARILIS is Primary Nurse. tc5 16:27 James Rossi MD is Attending Physician. david 16:49 XRAY Chest (1 view) In Process Unspecified. EDMS 16:55 Inserted saline lock: 20 gauge antecubital area, using aseptic technique. Blood tc5 collected. 17:41 CT Abd/Pelvis - Without Contrast In Process Unspecified. EDMS 17:56 Ny Laurent MD is Hospitalizing Provider. david 20:00 Patient has correct armband on for positive identification. Fall risk band placed. Bed dc2 in low position. Call light in reach. Side rails up X 1. 20:08 No provider procedures requiring assistance completed. dc2 21:52 Patient admitted, IV remains in place. intact, No redness/swelling at site. dc2 Administered Medications: 18:10 Drug: levofloxacin 500 mg Volume: 100 ml; Route: IVPB; Infused Over: 60 mins; Site: tc5 left antecubital; 18:30 Drug: Magnesium Sulfate 1 grams Route: IVPB; Rate: 100 ml/hr; Infused Over: 1 hrs; dc2 Site: left antecubital; Delivery: Primary tubing; 19:30 Follow up: IV Status: Completed infusion; IV Intake: 100ml dc2 18:57 Not Given (changed to pill form by erick GARZON): Potassium Effervescent Tablet 25 mEq PO oh once; dissolve in 4 ounces of water or juice 19:34 Drug: Potassium Chloride 20 mEq Route: PO; dc2 20:06 Follow up: Response: No adverse reaction dc2 19:43 Not Given (Patient Refused; Pt has own lactulose at home that Provider says she can dc2 take ): Lactulose 45 grams 45 ml PO once 20:06 Drug: morphine 2 mg Route: IVP; Site: left antecubital; dc2 20:52 Follow up: Response: Pain is unchanged, physician notified dc2 Intake: 19:30 IV: 100ml; Total: 100ml. dc2 Outcome: 17:59 Decision to Hospitalize by Provider. david 21:27 Admitted to Med/surg accompanied by tech, via stretcher. dc2 21:51 Admitted to Med/surg accompanied by tech, via stretcher, Report called to AMARILIS Tim dc2 21:51 Condition: good 21:51 Instructed on the need for admit. 21:53 Patient left the ED. dc2 Signatures: Dispatcher [employer] EDMS James Rossi MD MD cha Leal, Jahala, RN RN jl7 Callie Peterson am2 Nicolás, AMARILIS Choe RN dc2 Bettie Gandhi RN RN ct Cassaboom, Tashia, RN RN tc5 Corrections: (The following items were deleted from the chart) 18:12 18:03 Lactulose 45 grams 45 ml PO 45 ml oh tc5 18:56 18:48 Potassium Effervescent Tablet 25 mEq PO oh oh 20:08 16:08 PMHx: Cirrhosis; jl7 dc2
--- NOTE | 2021-05-18 18:00 | EDPHYS ---
Physician Documentation [facility] Name: Bella Barron Age: 60 yrs Sex: Female : 1960 Arrival Date: 05/18/2021 Time: 15:48 Bed 25 Private MD: Arjun [facility] ED Physician James Rossi HPI: 05/18 17:52 This 60 yrs old Female presents to ER via Ambulatory with complaints of Back david Pain. 17:52 The patient presents with pain that is acute, with no known mechanism of injury. The david symptoms are located in the low back, lumbar area. Onset: The symptoms/episode began/occurred 2 day(s) ago. The pain does not radiate. Associated signs and symptoms: The patient has no apparent associated signs or symptoms. The problem was sustained from unknown cause. Modifying factors: The patient symptoms are alleviated by remaining still, the patient symptoms are aggravated by movement. Severity of symptoms: At their worst the symptoms were mild, moderate, in the emergency department the symptoms are unchanged. The patient has experienced similar episodes in the past, a few times. Historical: - Allergies: 16:08 Iodine; jl7 16:08 Phenergan; jl7 16:08 Rocephin; jl7 - PMHx: 16:08 Colitis; Crohn's; Depression; Liver disease; needs kidney and liver transplant; ocd; jl7 20:08 Cirrhosis; dc2 - Immunization history:: Client reports receiving the Abiodun \T\ Abiodun single-dose vaccine. - Social history:: Smoking status: Patient denies any tobacco usage or history of. - Family history:: not pertinent. ROS: 17:52 Constitutional: Negative for fever, chills, and weight loss, Eyes: Negative for injury, david pain, redness, and discharge, ENT: Negative for injury, pain, and discharge, Neck: Negative for injury, pain, and swelling, Cardiovascular: Negative for chest pain, palpitations, and edema, Respiratory: Negative for shortness of breath, cough, wheezing, and pleuritic chest pain, : Negative for injury, bleeding, discharge, and swelling, MS/Extremity: Negative for injury and deformity, Skin: Negative for injury, rash, and discoloration, Neuro: Negative for headache, weakness, numbness, tingling, and seizure, Psych: Negative for depression, anxiety, suicide ideation, homicidal ideation, and hallucinations, Allergy/Immunology: Negative for hives, rash, and allergies, Endocrine: Negative for neck swelling, polydipsia, polyuria, polyphagia, and marked weight changes, Hematologic/Lymphatic: Negative for swollen nodes, abnormal bleeding, and unusual bruising. 17:52 Abdomen/GI: Positive for abdominal pain, of the right lower quadrant and left lower quadrant. 17:52 Back: Positive for decreased range of motion, pain at rest, pain with movement, of the lumbar area, left low back and right low back. Exam: 17:52 Constitutional: This is a well developed, well nourished patient who is awake, alert, david and in no acute distress. Head/Face: Normocephalic, atraumatic. Eyes: Pupils equal round and reactive to light, extra-ocular motions intact. Lids and lashes normal. Conjunctiva and sclera are non-icteric and not injected. Cornea within normal limits. Periorbital areas with no swelling, redness, or edema. ENT: Nares patent. No nasal discharge, no septal abnormalities noted. Tympanic membranes are normal and external auditory canals are clear. Oropharynx with no redness, swelling, or masses, exudates, or evidence of obstruction, uvula midline. Mucous membranes moist. Neck: Trachea midline, no thyromegaly or masses palpated, and no cervical lymphadenopathy. Supple, full range of motion without nuchal rigidity, or vertebral point tenderness. No Meningismus. Chest/axilla: Normal chest wall appearance and motion. Nontender with no deformity. No lesions are appreciated. Cardiovascular: Regular rate and rhythm with a normal S1 and S2. No gallops, murmurs, or rubs. Normal PMI, no JVD. No pulse deficits. Respiratory: Lungs have equal breath sounds bilaterally, clear to auscultation and percussion. No rales, rhonchi or wheezes noted. No increased work of breathing, no retractions or nasal flaring. Female : Normal external genitalia. Skin: Warm, dry with normal turgor. Normal color with no rashes, no lesions, and no evidence of cellulitis. MS/ Extremity: Pulses equal, no cyanosis. Neurovascular intact. Full, normal range of motion. Neuro: Awake and alert, GCS 15, oriented to person, place, time, and situation. Cranial nerves II-XII grossly intact. Motor strength 5/5 in all extremities. Sensory grossly intact. Cerebellar exam normal. Normal gait. Psych: Awake, alert, with orientation to person, place and time. Behavior, mood, and affect are within normal limits. 17:52 Abdomen/GI: Inspection: distension, that is mild, Bowel sounds: normal, Palpation: mild abdominal tenderness, in the right lower quadrant and left lower quadrant, Liver: no appreciated palpable abnormalities, Hernia: not appreciated. 18:20 ECG was reviewed by the Attending Physician. [facility] Vital Signs: 16:05 BP 116 / 71; Pulse 81; Resp 17; Temp 98.4; Pulse Ox 100% on R/A; Weight 81.65 kg (R); jl7 Height 4 ft. 11 in. (149.86 cm); Pain 8/10; 18:13 BP 103 / 68; Pulse 79; Resp 16; Pulse Ox 100% ; Pain 8/10; tc5 19:10 BP 107 / 51; Pulse 58; Resp 18; Pulse Ox 100% ; Pain 7/10; dc2 16:05 Body Mass Index 36.36 (81.65 kg, 149.86 cm) jl7 MDM: 16:27 Patient medically screened. [facility] 18:18 Differential diagnosis: Fatigue Obesity Pyelonephritis Ureterolithiasis. Data reviewed: [facility] vital signs, nurses notes, lab test result(s), EKG, radiologic studies, CT scan, plain films. Data interpreted: shelter monitor: rate is 79 beats/min, rhythm is regular, Pulse oximetry: on room air is 100 %. Test interpretation: by ED physician or midlevel provider: ECG, plain radiologic studies. Counseling: I had a detailed discussion with the patient and/or guardian regarding: the historical points, exam findings, and any diagnostic results supporting the discharge/admit diagnosis, lab results, radiology results, the need for further work-up and treatment in the hospital. 05/18 16:30 Order name: Basic Metabolic Panel; Complete Time: 17:36 [facility] 05/18 16:30 Order name: CBC with Diff; Complete Time: 17:45 [facility] 05/18 16:30 Order name: LFT's; Complete Time: 17:36 [facility] 05/18 16:30 Order name: Magnesium; Complete Time: 17:36 [facility] 05/18 16:30 Order name: NT PRO-BNP; Complete Time: 17:36 [facility] 05/18 16:30 Order name: PT-INR; Complete Time: 17:36 [facility] 05/18 16:30 Order name: Troponin (emerg Dept Use Only); Complete Time: 17:36 [facility] 05/18 16:30 Order name: Lipase; Complete Time: 17:36 [facility] 05/18 16:30 Order name: AMMONIA; Complete Time: 17:36 [facility] 05/18 17:38 Order name: Urine Dipstick-Ancillary; Complete Time: 17:45 [facility] 05/18 17:38 Order name: CBC Smear Scan; Complete Time: 17:45 [facility] 05/18 17:48 Order name: Urine Culture [facility] 05/18 18:27 Order name: SARS-COV-2 RT PCR [facility] 05/18 16:30 Order name: XRAY Chest (1 view); Complete Time: 17:36 [facility] 05/18 16:30 Order name: EKG; Complete Time: 16:31 [facility] 05/18 16:30 Order name: Cardiac monitoring [facility] 05/18 16:30 Order name: EKG - Nurse/Tech [facility] 05/18 16:30 Order name: IV Saline Lock; Complete Time: 16:53 [facility] 05/18 16:30 Order name: Labs collected and sent; Complete Time: 16:53 [facility] 05/18 16:30 Order name: O2 Per Protocol [facility] 05/18 16:30 Order name: O2 Sat Monitoring; Complete Time: 16:53 [facility] 05/18 16:30 Order name: Urine Dipstick-Ancillary (obtain specimen) [facility] 05/18 16:30 Order name: CT Abd/Pelvis - Without Contrast; Complete Time: 18:18 [facility] 05/18 16:55 Order name: Labs - recollect needed: ammonia ON ICE; Complete Time: 17:23 iw EC:20 Rate is 66 beats/min. Rhythm is regular. QRS [place] is Normal. ID interval is normal. QRS david interval is normal. QT interval is normal. No Q waves. T waves are Normal. No ST changes noted. Clinical impression: Normal ECG and No evidence of ischemia. Interpreted by me. Reviewed by me. Administered Medications: 18:10 Drug: levofloxacin 500 mg Volume: 100 ml; Route: IVPB; Infused Over: 60 mins; Site: tc5 left antecubital; 18:30 Drug: Magnesium Sulfate 1 grams Route: IVPB; Rate: 100 ml/hr; Infused Over: 1 hrs; dc2 Site: left antecubital; Delivery: Primary tubing; 19:30 Follow up: IV Status: Completed infusion; IV Intake: 100ml dc2 18:57 Not Given (changed to pill form by rangel GARZON): Potassium Effervescent Tablet 25 mEq PO oh once; dissolve in 4 ounces of water or juice 19:34 Drug: Potassium Chloride 20 mEq Route: PO; dc2 20:06 Follow up: Response: No adverse reaction dc2 19:43 Not Given (Patient Refused; Pt has own lactulose at home that Provider says she can dc2 take ): Lactulose 45 grams 45 ml PO once 20:06 Drug: morphine 2 mg Route: IVP; Site: left antecubital; dc2 20:52 Follow up: Response: Pain is unchanged, physician notified dc2 Disposition Summary: 05/18/21 17:59 Hospitalization Ordered Hospitalization Status: Observation david Provider: Ny Laurent cha Location: Telemetry/MedSurg (observation) david Condition: Fair david Problem: new david Symptoms: have improved david Bed/Room Type: Standard david Room Assignment: 215(05/18/21 20:44) dw Diagnosis - Unspecified cirrhosis of liver - MCFARLANE david - Obesity, unspecified david - Encephalopathy, unspecified - HEPATIC , MILD david - Anemia, unspecified david - Hypomagnesemia david - Hypokalemia david Forms: - Medication Reconciliation Form david - SBAR form david Signatures: Dispatcher [employer] Estella Barfield RN RN dw Anderson, Corey, MD MD cha Williams, Irene RN Nupur Moore RN RN jl7 Daija Monzon RN RN dc2 Bettie Gandhi RN RN oh Cassaboom, Theresa RN RN tc5 Corrections: (The following items were deleted from the chart) 18:27 17:55 CORONAVIRUS+ ordered. EDKS EDMS 20:08 16:08 PMHx: Cirrhosis; jl7 dc2 20:44 17:59 david dw
--- NOTE | 2021-05-18 18:03 | RAD REPORT ---
EXAM DESCRIPTION: CT - Abdomen Pelvis Wo Contrast - 05/18/2021 5:41 pm CLINICAL HISTORY: Abd pain;Pain COMPARISON: Abdomen Pelvis Wo Contrast dated 11/01/2020 TECHNIQUE: Axial [address] imaging of the abdomen and pelvis was performed without IV contrast. No IV contrast was given because of allergy, abnormal renal function, patient refusal or physician re quest. No oral contrast administered. All CT scans are performed using dose optimization technique as appropriate and may include automated exposure control or mA/KV adjustment according to patient size. FINDINGS: No suspicious findings in the lung bases. No acute liver finding seen on noncontrast imaging. TIPS shunt tubing is in place. Gallbladder is abs ent. No biliary tree dilatation. Splenomegaly is present stable from prior imaging. No acute pancreat ic process. No hydronephrosis or suspicious renal mass. Large posterior mid left renal cyst has not changed. Urin polo bladder is contracted limiting assessment. No significant adrenal finding. Isodense renal masses and pyelonephritis cannot be excluded in the absence of IV contrast. Uterus and ovaries show no suspi cious findings. No dilated bowel loops or bowel wall thickening. No ascites is present. No free air or pneumatosis. No hernia, mass or bulky lymphadenopathy. Postsurgical changes are noted the anterior abdominal wall. No acute bone findings seen. Prominent degenerative changes at L2-3 are stable from October. IMPRESSION: Non-contrast enhanced CT abdomen and pelvis imaging show no acute or emergent finding. Above detailed findings are stable from October 2020 imaging. Full assessment is limited is the absence of IV contrast.
[2021-05-18] MEDS ORDERED: Levofloxacin500mg IV 500 MG/100 ML BAG IV ONE (18:22)
[2021-05-18] MEDS ORDERED: LACTULOSE 20 GM/30 ML UCUP ONE (18:22)
[2021-05-18] MEDS ORDERED: MAGNESIUM SULFATE 1 gm IVPB 1 GM/100 ML BAG IV ONE (18:22)
[2021-05-18] MEDS ORDERED: POTASSIUM 25 MEQ EFFERV TAB ONE (19:13)
[2021-05-18] MEDS ORDERED: ONDANSETRON 4 MG/2 ML VIAL IV PRN (19:38)
[2021-05-18] MEDS: LACTULOSE 20 GM/30 ML UCUP PO SCH ×3 (19:38→23:10)
--- NOTE | 2021-05-18 19:45 | P.HP ---
Certification for Inpatient Patient admitted to: Observation With expected LOS: <2 Midnights Patient will require the following post-hospital care: None Practitioner: I am a practitioner with admitting privileges, knowledge of patient current condition, hospital course, and medical plan of care. Services: Services provided to patient in accordance with Admission requirements found in Title 42 Section 412.3 of the Code of Federal Regulations Patient History Date of Service: 05/18/21 Reason for admission: uti, hepatic encephalopathy History of Present Illness: Ms. Barron is a 60 yo F with cirrhosis, anemia who presents with 2 days lower abdominal and back pain. Due to her history of cirrhosis, her PCP instructed her to go to the hospital. Denies fever, nausea and vomiting. UA is positive for nitrites. Ammonia level of 107. Reports she has been taking her home medications. Received lactulose, levaquin and magnesium in the ED. Allergies ceftriaxone [From Rocephin] Allergy (Verified 10/10/20 20:17) Anaphylaxis iodine Allergy (Verified 10/10/20 20:17) Anaphylaxis promethazine [From Phenergan] Allergy (Verified 10/10/20 20:17) Itching Fish Allergy (Uncoded 10/10/20 20:17) Rash Home Medications: Allopurinol 100 mg PO DAILY 04/10/20 Benztropine Mesylate 0.5 mg PO BEDTIME 04/10/20 Carbidopa/Levodopa [Carbidopa-Levodopa 25-100 Tab] 1 tab PO DAILY 04/10/20 Escitalopram Oxalate [Lexapro] 15 mg PO BEDTIME 04/10/20 Furosemide [Lasix] 20 mg PO DAILY 04/10/20 Lactulose [Kristalose] 20 gm PO TID 04/10/20 Ondansetron [Ondansetron Odt] 4 mg PO Q12HP PRN 04/10/20 Pantoprazole [Protonix Tab*] 40 mg PO DAILY 04/10/20 Quetiapine Fumarate [Seroquel] 250 mg PO BEDTIME 04/10/20 Rifaximin [Xifaxan] 550 mg PO BID 04/10/20 Suvorexant [Belsomra] 10 mg PO BEDTIME 04/10/20 Zinc Sulfate [Zinc Sulfate*] 220 mg PO BID 04/10/20 Benztropine Mesylate [Cogentin] 1 tab PO BID 12/16/20 Brexpiprazole [Rexulti] 2 mg PO DAILY 12/16/20 Divalproex ER [Depakote *ER] 1 tab PO BEDTIME 12/16/20 Gabapentin 600 mg PO DAILY 12/16/20 Primidone 50 mg PO DAILY 12/16/20 Rifaximin [Xifaxan] 1 tab PO BID 12/16/20 Spironolactone [Aldactone] 50 mg PO DAILY 12/16/20 Topiramate 50 mg PO BID 12/16/20 Ubrogepant [Ubrelvy] 100 mg PO DAILY PRN 12/16/20 clonazePAM [Clonazepam] 1 tab PO DAILY PRN 12/16/20 - Past Medical/Surgical History Diabetic: No -: Crohn's Disease -: Chronic liver cirrhosis with TIPS procedure -: Depression with anxiety -: Neuropathy -: Insomnia -: Parkinson's -: CKD 3 -: Anemia chronic disease -: Chronic 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 -: Neuropathy -: Insomnia -: Gout -: multiple abdominal surgery due to Crohn's -: TIPS procedure -: Bleeding esophageal varices surgery Psychosocial/ Personal History: Patient disabled, lives with family - Family History Mother -: Blood disorders Notes: recently from blood disease Father -: Heart disease - Social History Smoking Status: Unknown if ever smoked Alcohol use: No CD- Drugs: No Caffeine use: Yes Place of Residence: Home Review of Systems 10-point ROS is otherwise unremarkable Gastrointestinal: Abdominal Pain Musculoskeletal: Back Pain Physical Examination - Physical Exam General: Alert, In no apparent distress HEENT: Atraumatic, PERRLA, Mucous membr. moist/pink, EOMI, Sclerae nonicteric Neck: Supple, 2+ carotid pulse no bruit, No LAD, Without JVD or thyroid abnormality Respiratory: Clear to auscultation bilaterally, Normal air movement Cardiovascular: Regular rate/rhythm, Normal S1 S2 Gastrointestinal: Normal bowel sounds, No ascites, No masses, No rebound, No guarding, Tenderness Musculoskeletal: Tenderness Integumentary: No rashes Neurological: Normal strength at 5/5 x4 extr, Normal tone, Sensation intact, Abnormal speech, Abnormal affect Lymphatics: No axilla or inguinal lymphadenopathy - Studies Laboratory Data (last 24 hrs) 05/18/21 16:50: PT 17.9 H, INR 1.55 05/18/21 16:50: WBC 4.40, Hgb 9.0 L, Hct 26.5 L, Plt Count 86 L 05/18/21 16:50: Sodium 146 H, Potassium 3.4 L, BUN 10, Creatinine 1.21, Glucose 141 H, Magnesium 1.7 L, Total Bilirubin 1.5 H, AST 25, ALT 25, Alkaline Phosphatase 71, Lipase 130 Assessment and Plan - Problems (Diagnosis) (1) Hepatic encephalopathy Onset Date: 10/03/17 Current Visit: No Status: Acute (2) Hypomagnesemia Onset Date: 10/03/17 Current Visit: No Status: Acute (3) Anemia Current Visit: No Status: Chronic Qualifiers: Anemia type: other cause Other causes of anemia: chronic disease, other Qualified Code(s): D63.8 - Anemia in other chronic diseases classified elsewhere (4) Hepatic cirrhosis Onset Date: 10/03/17 Current Visit: No Status: Chronic Qualifiers: Hepatic cirrhosis type: unspecified hepatic cirrhosis Ascites presence: without ascites Qualified Code(s): K74.60 - Unspecified cirrhosis of liver (5) Thrombocytopenia Current Visit: No Status: Chronic - Plan continue lactulose q2hr until she has a BM, then switch to home dose recheck ammonia level in the AM continue IV antibiotics urine culture and blood culture pending magnesium and potassium replacement pain medication as needed reconcile and continue home medications DVT ppx Discharge Plan: Home Plan to discharge in: 24 Hours - Advance Directives Does patient have a Living Will: Yes Does patient have a Durable POA for Healthcare: Yes - Code Status/Comfort Care Code Status Assessed: Yes (full code) Critical Care: No Time Spent Managing Pts Care (In Minutes): 70
[2021-05-18] MEDS ORDERED: POTASSIUM CL SA 10 MEQ TAB PO ONE (19:58)
[2021-05-18] MEDS ORDERED: MORPHINE 4 MG/ML SYR ONE (20:30)
[2021-05-18] MEDS: INSULIN -REGULAR HUMAN 50 UNIT/0.5 ML ML SQ SCH (21:00)
[2021-05-18 22:46] VITALS: BMI 36.3
[2021-05-18] MEDS ORDERED: ESZOPICLONE 1 MG TAB PO SCH (23:12)
[2021-05-18] MEDS: Rifaximin 550 MG Tab PO SCH (23:13)
[2021-05-18] MEDS ORDERED: QUETIAPINE 100MG TAB PO SCH (23:13)
[2021-05-18] MEDS ORDERED: PRIMIDONE 50 MG TAB PO SCH (23:13)
[2021-05-18] MEDS: GABAPENTIN 300 MG CAP PO SCH (23:52)
[2021-05-19 00:27] LABS: Urine Appearance CLEAR (Clear); Urine Bilirubin NEGATIVE (Negative); Urine Blood NEGATIVE (Negative); Urine Color DK YELLOW (Yellow); Urine Glucose NEGATIVE (Negative); Urine Protein NEGATIVE (Negative); Urine pH 6.5 (5.0-7.0)
[2021-05-19 00:30] LABS: Urine Microscopic Reflex ORDER UMIC
[2021-05-19 00:40] LABS: Urine Bacteria LOADED /HPF (<20); Urine Mucus 1+ /HPF (NONE SEEN); Urine RBC <5 /HPF (NONE SEEN)
[2021-05-19] MEDS ORDERED: FENTANYL CITR 100 MCG/2 ML IV ONE (03:25)
[2021-05-19] MEDS: CALCIUM CARBONATE CHEW 500MG TAB PO SCH ×2 (03:41→09:10)
[2021-05-19] MEDS ORDERED: LACTULOSE 20 GM/30 ML UCUP PO ONE (05:00)
[2021-05-19 06:17] LABS: Absolute Lymphocytes (CBC) 1.3 K/uL (0.7-4.9); Basophils % 0.5 % (0-1.3); Hematocrit 27.5 % (36.0-45.0); Lymphocytes % 27.6 % (15.3-44.8); MPV 7.9 fL (7.6-11.3); RBC Red Blood Cell Count 3.17 M/uL (3.86-4.86)
[2021-05-19 06:56] LABS: Albumin 2.6 g/dL (3.4-5.0); Bilirubin Total 1.9 mg/dL (0.2-1.0); Magnesium 2.1 mg/dL (1.8-2.4); Phosphorus 2.7 mg/dL (2.5-4.9); Potassium 3.7 mmol/L (3.5-5.1); Protein, Total 5.7 g/dL (6.4-8.2)
[2021-05-19] MEDS: LACTULOSE 20 GM/30 ML UCUP PO SCH ×3 (07:00→11:00)
[2021-05-19 07:01] LABS: Thyroid Stimulating Hormone 3.75 uIU/mL (0.360-3.740)
[2021-05-19] MEDS: INSULIN -REGULAR HUMAN 50 UNIT/0.5 ML ML SQ SCH ×2 (07:30→11:30)
[2021-05-19 08:36] VITALS: O2SAT 97
[2021-05-19] MEDS ORDERED: POTASSIUM CL SA 10 MEQ TAB PO ONE (09:00)
[2021-05-19] MEDS: Rifaximin 550 MG Tab PO SCH (09:00)
[2021-05-19] MEDS ORDERED: BENZTROPINE 1 MG TAB PO SCH (09:00)
[2021-05-19] MEDS ORDERED: SPIRONOLACTONE 25 MG TABLET PO SCH (09:00)
[2021-05-19] MEDS ORDERED: TOPIRAMATE 25 MG TAB PO SCH (09:00)
[2021-05-19] MEDS: GABAPENTIN 300 MG CAP PO SCH (09:10)
[2021-05-19 09:12] VITALS: BP 116/62
[2021-05-19 10:41] VITALS: TEMP 97
--- NOTE | 2021-05-19 14:31 | P.PN ---
Subjective Date of Service: 05/19/21 Chief Complaint: uti, hepatic encephalopathy Patient appear lethargy but wants to go home. It appears her confusion is better. No significant improvement in ammonia level. Physical Examination - Vital Signs Temperature: 97.0 F Blood Pressure: 116/62 Pulse: 78 Respirations: 17 Pulse Ox (%): 98 - Physical Exam General: In no apparent distress, Oriented x3, Other (Lethargic) HEENT: Mucous membr. moist/pink Neck: JVD not distended Respiratory: Clear to auscultation bilaterally, Normal air movement Cardiovascular: No edema, Regular rate/rhythm, Normal S1 S2 Gastrointestinal: Normal bowel sounds, Soft and benign, Non-distended Musculoskeletal: No swelling Integumentary: No rashes Neurological: Normal strength at 5/5 x4 extr - Studies Laboratory Data (last 24 hrs) 05/18/21 16:50: PT 17.9 H, INR 1.55 05/18/21 16:50: WBC 4.40, Hgb 9.0 L, Hct 26.5 L, Plt Count 86 L 05/18/21 16:50: Sodium 146 H, Potassium 3.4 L, BUN 10, Creatinine 1.21, Glucose 141 H, Magnesium 1.7 L, Total Bilirubin 1.5 H, AST 25, ALT 25, Alkaline Phosphatase 71, Lipase 130 Assessment And Plan - Current Problems (Diagnosis) (1) Acute metabolic encephalopathy Status: Acute (2) Hepatic encephalopathy Onset Date: 10/03/17 Status: Acute (3) Crohn disease Onset Date: 10/03/17 Status: Chronic Qualifiers: Gastrointestinal tract location: small intestine Digestive disease complication type: without complication Qualified Code(s): K50.00 - Crohn's disease of small intestine without complications (4) Hepatic cirrhosis Onset Date: 10/03/17 Status: Chronic Qualifiers: Hepatic cirrhosis type: unspecified hepatic cirrhosis Ascites presence: without ascites Qualified Code(s): K74.60 - Unspecified cirrhosis of liver (5) Thrombocytopenia Status: Chronic (6) Metabolic acidosis Status: Acute - Plan Continue treatment for hepatic encephalopathy with lactulose, Rifaximine. Antibiotics for UTI. Neuro checks Continue home medications for Crohn's disease. IV Levaquin for UTI. Follow urine culture. Metabolic acidosis likely secondary to diarrhea. Nephrology consult. Monitor renal function. Monitor CBC to follow thrombocytopenia.
[2021-05-19] MEDS ORDERED: Levofloxacin 750mg IV 750 MG/150 ML BAG IV SCH ×2 (15:00→19:00)
--- NOTE | 2021-05-19 18:12 | P.DS ---
Admission Date: 05/18/21 Discharge Date: 05/19/21 Disposition: AMA-LEFT AGAINST MEDICAL ADVIC Reason for Admission: uti, hepatic encephalopathy - Problems (1) Acute metabolic encephalopathy Status: Acute (2) Hepatic encephalopathy Onset Date: 10/03/17 Status: Acute (3) Crohn disease Onset Date: 10/03/17 Status: Chronic Qualifiers: Gastrointestinal tract location: small intestine Digestive disease complication type: without complication Qualified Code(s): K50.00 - Crohn's disease of small intestine without complications (4) Hepatic cirrhosis Onset Date: 10/03/17 Status: Chronic Qualifiers: Hepatic cirrhosis type: unspecified hepatic cirrhosis Ascites presence: without ascites Qualified Code(s): K74.60 - Unspecified cirrhosis of liver (5) Thrombocytopenia Status: Chronic (6) Metabolic acidosis Status: Acute Brief History of Present Illness: 60 yo woman with cirrhosis, anemia presented with 2 days lower abdominal and back pain. Due to her history of cirrhosis, her PCP instructed her to go to the hospital. Patient denied fever, nausea and vomiting. UA was positive for nitrites. Ammonia level of 107. Reports she has been taking her home medications. Received lactulose, levaquin and magnesium in the ED. Patient hospitalized for further management. Hospital Course: Patient admitted to the medical floor and started on supportive measures and IV antibiotics. Her ammonia level next day was still greater than 100 and no significant improvement from the previous level. She was oriented x3 and intera cting meaningfully, have appeared to have good insight into her current state. She voiced the need to go home to take care of her teenager. I discussed with her the need to stay for treatment due to her encephalopathy. Patient placed on lactulose and other home medications continued. I got to hear patient signed out against medical advice when I inquired about her reconciled home medications not showing on her MAR from the pharmacist. Vital Signs/Physical Exam: Temp Pulse Resp BP Pulse Ox 97.0 F 78 17 116/62 98 05/19/21 14:39 05/19/21 14:39 05/19/21 14:39 05/19/21 14:39 05/19/21 14:39 Laboratory Data at Discharge: WBC 4.60 K/uL (4.3-10.9) 05/19/21 05:57 Hgb 9.6 g/dL (12.0-15.0) L 05/19/21 05:57 Hct 27.5 % (36.0-45.0) L 05/19/21 05:57 Plt Count 77 K/uL (152-406) L 05/19/21 05:57 PT 17.9 SECONDS (9.5-12.5) H 05/18/21 16:50 INR 1.55 05/18/21 16:50 Sodium 145 mmol/L (136-145) 05/19/21 05:57 Potassium 3.7 mmol/L (3.5-5.1) 05/19/21 05:57 BUN 9 mg/dL (7-18) 05/19/21 05:57 Creatinine 1.06 mg/dL (0.55-1.3) 05/19/21 05:57 Glucose 97 mg/dL (74-106) 05/19/21 05:57 Phosphorus Cancelled 05/19/21 14:45 Magnesium Cancelled 05/19/21 14:45 Total Bilirubin 1.9 mg/dL (0.2-1.0) H 05/19/21 05:57 AST 45 U/L (15-37) H 05/19/21 05:57 ALT 30 U/L (12-78) 05/19/21 05:57 Alkaline Phosphatase 70 U/L (45-117) 05/19/21 05:57 Triglycerides 57 mg/dL (<150) 05/19/21 05:57 Cholesterol 69 mg/dL (<200) 05/19/21 05:57 HDL Cholesterol 36 mg/dL (40-60) L 05/19/21 05:57 Cholesterol/HDL Ratio 1.92 05/19/21 05:57 Lipase 130 U/L (73-393) 05/18/21 16:50 Home Medications: Benztropine Mesylate 0.5 mg PO BID 04/10/20 Quetiapine Fumarate [Seroquel] 200 mg PO BEDTIME 04/10/20 Rifaximin [Xifaxan] 550 mg PO BID 04/10/20 Gabapentin 300 mg PO BID 12/16/20 Primidone 25 mg PO BEDTIME 12/16/20 Spironolactone [Aldactone] 50 mg PO DAILY 12/16/20 Topiramate 50 mg PO BID 12/16/20 Eszopiclone 3 mg PO BEDTIME 05/18/21 Followup: Fernando Díaz, [Primary Care Provider] -
[2021-05-19] MEDS ORDERED: LACTULOSE 20 GM/30 ML UCUP PO SCH (21:00)
== END 2021-05-19 12:40 | disposition left against medical advice (07) ==
LOC: ER 15:47 → ERHOLD 18:27 → 2ND 21:24
PROVIDERS: ADMIT Internal Medicine; ATTEND Internal Medicine
DX: K72.90 Hepatic failure, unspecified without coma (principal); G93.41 Metabolic encephalopathy; Z53.29 Procedure and treatment not carried out because of patient's decision for other reasons; N39.0 Urinary tract infection, site not specified; E87.2 Acidosis; D69.6 Thrombocytopenia, unspecified; K50.90 Crohn's disease, unspecified, without complications; K74.60 Unspecified cirrhosis of liver; N18.30 Chronic kidney disease, stage 3 unspecified; D63.8 Anemia in other chronic diseases classified elsewhere; E83.42 Hypomagnesemia; E87.6 Hypokalemia; K75.81 Nonalcoholic steatohepatitis (NASH); F41.8 Other specified anxiety disorders; G47.00 Insomnia, unspecified; G62.9 Polyneuropathy, unspecified; G20 Parkinson's disease; M10.9 Gout, unspecified; E66.9 Obesity, unspecified; Z68.36 Body mass index [BMI] 36.0-36.9, adult; Z20.822 Contact with and (suspected) exposure to COVID-19; Z91.013 Allergy to seafood; Z88.8 Allergy status to other drugs, medicaments and biological substances; Z88.1 Allergy status to other antibiotic agents; Z91.041 Radiographic dye allergy status; Z82.49 Family history of ischemic heart disease and other diseases of the circulatory system; Z83.2 Family history of diseases of the blood and blood-forming organs and certain disorders involving the immune mechanism
CPT/HCPCS: 96365; 93005; 87088; 85025 ×2; 87086; 80048; 36415; 82140 ×2; 83735 ×2; 84100; 85610; 80061; 82947; 80076; 84443; 87077; 87186; 81003; 84484; 84439; 83690; 80053; 83880; 74176; 71045; 94760 ×2; 96375; 99285; U0003; J3010; J3475; G0378 ×3; 81015

== ENCOUNTER 2021-07-28 15:34 | Observation (INO) | payer OTHER ==
--- OUTSIDE RECORDS SUMMARY | 2021-07-28 15:42 | XMS REPORT | Continuity of Care Document ---
:1960 Author Organization [facility] t Address [address] [place] [address] Care Team Providers Name Role Phone DO Kortney HE Attending Clinician Unavailable YING Attending Clinician Unavailable ROLANDO Attending Clinician Unavailable MD ROM Attending Clinician Unavailable CHELA Attending Clinician Unavailable MD SWAPNA ABDULLAHI Attending Clinician Unavailable TING BARCENAS Attending Clinician Unavailable MD Ping EDWARDS Attending Clinician Unavailable JERRY Attending Clinician Unavailable TELLO Attending Clinician Unavailable AICHA Attending Clinician Unavailable ROM Attending Clinician Unavailable MD CHELA Attending Clinician Unavailable MD ERIKA MARSHALL Attending Clinician Unavailable ELLE Attending Clinician Unavailable PLACIDO Attending Clinician Unavailable MARYBETH Attending Clinician Unavailable MD Ivone CHAMPION Attending Clinician Unavailable YOJANA Attending Clinician Unavailable DO ORLANDO RUEDA Attending Clinician Unavailable JACQUELIN Attending Clinician Unavailable MEAGAN Attending Clinician Unavailable Shekhar HERRON, S Attending Clinician SHEKHAR S Attending Clinician Unavailable Doctor Unassigned, Name Attending Clinician Unavailable DARCY Attending Clinician Unavailable Anil OLMOS Attending Clinician Faustino Jensen MD Attending Clinician Sara Motta MD Attending Clinician Brandon FRANKLIN Attending Clinician PALMER Attending Clinician Unavailable DO Kortney HE Admitting Clinician Unavailable ROM Admitting Clinician Unavailable MD ROM Admitting Clinician Unavailable CHELA Admitting Clinician Unavailable TING BARCENAS Admitting Clinician Unavailable MD SWAPNA ABDULLAHI Admitting Clinician Unavailable MD Ping EDWARDS Admitting Clinician Unavailable MD CHELA Admitting Clinician Unavailable MAGDA Admitting Clinician Unavailable MD MAGDA PLaurel Admitting Clinician Unavailable JAYECE Admitting Clinician Unavailable MD Ivone CHAMPION Admitting Clinician Unavailable MCCARTAN Admitting Clinician Unavailable DO ORLANDO RUEDA Admitting Clinician Unavailable DINAKAChristiana Admitting Clinician Unavailable DARCY Admitting Clinician Unavailable Sara Motta MD Admitting Clinician Payers Payer Name Policy Type Policy Number Effective Date [facility]piration Date [facility] [id number] 2016 MEDICAID 00:00:00 Advance Directives Directive Decision Effective Termination Comments Source Date Date Healthcare Agents on N/A [facility] ersity FileNameRelationshipHealthcare [facility] Agent Medical RelationshipCommunicationSouthcoast [facility] MaconSpousePrimary healthcare -[phone] (Mobile) Problems Condition Condition Condition Status Onset Resolution Last Treating Co mments Source Name Details Category Date Date Treatment Clinician Date Obesity Obesity Disease Active Univers (BMI (BMI 7-26 ity of 30-39.9) 30-39.9) 00:00: [address] Hematochez Hematochez Disease Active U nivers ia ia 7-26 ity of 00:00: [address] 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 2-02 it y of athy athy 00:00: [address] Right Right Disease Active Univers shoulder shoulder 4-25 ity of pain pain 00:00: [address] Anxiety Anxiety Disease Active Univers and and 4-22 [place] [facility] Crohn Crohn Disease Active Univers disease disease 4-22 ity of 00:00: [address] 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 4-22 ity of 00:00: [address] Anxiety Anxiety Disease Active Univers and and 4-22 [place] [facility] Branch Rectal Rectal Disease Active 2014-08 Univers bleed bleed 2-03 ity of 00:00: [place] 00 [facility] Allergies, Adverse Reactions, Alerts Allergy Allergy Status Severity Reaction(s) Onset Inactive Treating Comm ents Source Name Type Date Date Clinician Ceftriax Propensi Active Itching 0 Unive rs one ty to 2-25 ity of adverse 00:00: [place] reaction 00 Medical s [place] CEFTRIAX DRUG Active ITCHING 0 Univers ONE INGREDI 2-25 ity of 00:00: [place] 00 Medical [place] PROMETHA DRUG Active Other-Cmnt 2017-0 Univ ers ZINE INGREDI 3-27 ity of 00:00: [place] 00 [facility] Prometha Propensi Active Other - See 2017-0 Severe U nivers zine ty to comments 3-27 confusion ity o f adverse 00:00: [place] reaction 00 Medical [facility] Eggshell Propensi Active Diarrhea 2017-0 Egg yoke Un linda Membrane ty to 2-27 ity of adverse 00:00: [place] reaction 00 Medical [facility] EGGSHELL DRUG Active Diarrhea 2017-0 Univer s MEMBRANE INGREDI 2-27 ity of 00:00: [place] 00 Medical [place] SHELLFIS DRUG Active High Anaphylaxis 2015-0 Uni vers H INGREDI 9-24 ity of DERIVED 00:00: [place] 00 Medical [place] Shellfis Propensi Active Anaphylaxis 2015-0 U nivers h ty to 9-24 ity of Derived adverse 00:00: [place] reaction 00 [facility] Iodine Propensi Active Anaphylaxis 2007- Uni vers ty to 8-18 ity of adverse 00:00: [place] reaction 00 Medical [facility] IODINE DRUG Active Anaphylaxis 2007-0 Unive rs INGREDI 8-18 ity of 00:00: [place] 00 [facility] Phenerga Adverse Active Info Not [facility] Iodine Adverse Active Info Not [facility] Reaction Available [facility] Social History Social Habit Start Date Stop Date Quantity Comments Source Sex Assigned At [facility] Exposure to Not sure [facility] SARS-CoV-2 (event) [facility] Cigarettes smoked 2019-12-22 2019-12-22 Univers ity of current (pack per 00:00:00 00:00:00 ) - Reported Branch Alcohol intake 2019-12-22 2019-12-22 University of 00:00:00 00:00:00 [facility] History of tobacco 1979-01-30 2018-08-12 Cigarette Smoker University of use 00:00:00 00:00:00 [facility] Smoking Status Start Date Stop Date Source Former smoker 2019-12-22 00:00:00 2019-12-22 00:00:00 Universi ty of [facility] Medications Ordered Filled Start Stop Current Ordering Indication Dosage Frequency Signature Comments Components Source Medication Medication Date Date Medication? Clinician (SIG) Name Name sodium 2020-0 2020- No 30mg Univers hyaluronate 12-21- ity of (viscosup) 20:30: 19:25 [place] (ORTHOVISC) 00 :00 Medical injection Branch 30 mg sodium 2020-0 2020- No 30mg 30 mg, Univers hyaluronate 12-21-12 Intra-brennen i ty of (viscosup) 20:30: 19:25 Kalyani melendez s (ORTHOVISC) 00 :00 ONCE, 1 Medic al injection dose, Tue Branc h 30 mg 12/22/19 at 1530, Routine sodium 2020-0 2020- No 30mg Univers hyaluronate 12-21-12 ity of (viscosup) 20:30: 19:25 [place] (ORTHOVISC) 00 :00 Medical injection Branch 30 mg sodium 2020-0 2020- No 30mg 30 mg, Univers hyaluronate 12-21-12 Intra-brennen i ty of (viscosup) 20:30: 19:25 Kalyani melendez s (ORTHOVISC) 00 :00 ONCE, 1 Medic al injection dose, Tue Branc h 30 mg 12/22/19 at 1530, Routine sodium 2020-0 2020- No 30mg Univers hyaluronate 5-05 05-05 ity of (viscosup) 21:15: 20:03 [place] (ORTHOVISC) 00 :00 Medical injection Branch 30 mg sodium 2020-0 2020- No 30mg 30 mg, Univers hyaluronate 5-05 05-05 Intra-brennen i ty of (viscosup) 21:15: 20:03 Kalyani melendez s (ORTHOVISC) 00 :00 ONCE, 1 Medic al injection dose, Tue Branc h 30 mg 12/15/19 at 1615, Routine sodium 2020-0 2020- No 30mg Univers hyaluronate 5-05 05-05 ity of (viscosup) 21:15: 20:03 [place] (ORTHOVISC) 00 :00 Medical injection Branch 30 mg sodium 2020-0 2020- No 30mg 30 mg, Univers hyaluronate 12-14 05-05 Intra-brennen i ty of (viscosup) 21:15: 20:03 Kalyani melendez (ORTHOVISC) 00 :00 ONCE, 1 Medic al injection dose, Tue Branc h 30 mg 12/15/19 at 1615, Routine sodium 2020-0 2020- No [id number] 30mg Uni vers hyaluronate 12-07 9100 ity of (viscosup) 22:15: 21:08 [place] (ORTHOVISC) 00 :00 Medical injection Branch 30 mg sodium 2020-0 2020- No [id number] 30mg 30 mg, U nivers hyaluronate 12-07 9100 Intra-brennen i ty of (viscosup) 22:15: 21:08 Kalyani melendez (ORTHOVISC) 00 :00 ONCE, 1 Medic al injection dose, Tue Branc h 30 mg 12/08/19 at 1715, Routine sodium 2020-0 2020- No [id number] 30mg Uni vers hyaluronate 12-07 9100 ity of (viscosup) 22:15: 21:08 [place] (ORTHOVISC) 00 :00 Medical injection Branch 30 mg sodium 2020-0 2020- No [id number] 30mg 30 mg, U nivers hyaluronate 12-07 9100 Intra-brennen i ty of (viscosup) 22:15: 21:08 asiajamiaKalyani (ORTHOVISC) 00 :00 ONCE, 1 Medic al injection dose, Tue Branc h 30 mg 12/08/19 at 1715, Routine methylnaltr Yes Take by Un linda exone - mouth. ity of bromide 21:42: [place] (RELISTOR 13 Medical ORAL) Branch potassium Yes Take by [facility] ers (POTASSIMIN - mouth once it y of ORAL) 21:42: now. [address] Branch GABAPENTIN Yes Take by Uni vers ORAL - mouth. ity of 21:42: [address] Branch spironolact Yes 100mg Take 100 U nivers one 100 mg 7-29 mg by ity of tablet 21:42: mouth. [place] [address] Medical Branch traMADOL 50 Yes 50mg Take 50 mg Univers mg tablet 7-29 by mouth ity of 21:42: as needed [place] [address] for Pain Medical (scale Branch 7-10). methylnaltr 0 Yes Take by Un linda exone 7-29 mouth. ity of bromide 21:42: [place] (RELISTOR 13 Medical ORAL) Branch potassium Yes Take by Univ ers (POTASSIMIN 7-29 mouth once it y of ORAL) 21:42: now. [place] [address] Medical Branch spironolact Yes 100mg Take 100 U nivers one 100 mg 7-29 mg by ity of tablet 21:42: mouth. [place] [address] Medical Branch eszopiclone Yes 2mg Take 2 mg U nivers 2 mg tablet 7-29 by mouth ity of 21:42: at [place] [address] bedtime. Medical Branch GABAPENTIN Yes Take by Uni vers ORAL 7-29 mouth. ity of 21:42: [place] [address] Medical Branch traMADOL 50 Yes 50mg Take 50 mg Univers mg tablet 7-29 by mouth ity of 21:42: as needed [place] [address] for Pain Medical (scale Branch 7-10). methylnaltr Yes Take by Un linda exone 7-29 mouth. ity of bromide 21:42: [place] (RELISTOR 13 Medical ORAL) Branch potassium 0 Yes Take by Univ ers (POTASSIMIN 7-29 mouth once it y of ORAL) 21:42: now. [place] [address] Medical Branch spironolact Yes 100mg Take 100 U nivers one 100 mg 7-29 mg by ity of tablet 21:42: mouth. [place] [address] Medical Branch eszopiclone Yes 2mg Take 2 mg U nivers 2 mg tablet 7-29 by mouth ity of 21:42: at [place] [address] bedtime. Medical Branch GABAPENTIN 0 Yes Take by Uni vers ORAL 7-29 mouth. ity of 21:42: [place] [address] Medical Branch traMADOL 50 0 Yes 50mg Take 50 mg Univers mg tablet 7-29 by mouth ity of 21:42: as needed [place] [address] for Pain Medical (scale Branch 7-10). methylnaltr 2019-0 Yes Take by Un linda exone 7-29 mouth. ity of bromide 21:42: [place] (RELISTOR 13 Medical ORAL) Branch potassium Yes Take by Univ ers (POTASSIMIN 7-29 mouth once it y of ORAL) 21:42: now. [place] [address] Medical Branch spironolact Yes 100mg Take 100 U nivers one 100 mg 7-29 mg by ity of tablet 21:42: mouth. [place] [address] Medical Branch eszopiclone Yes 2mg Take 2 mg U nivers 2 mg tablet 7-29 by mouth ity of 21:42: at [place] [address] bedtime. Medical Branch GABAPENTIN Yes Take by Uni vers ORAL 7-29 mouth. ity of 21:42: [place] [address] Medical Branch traMADOL 50 Yes 50mg Take 50 mg Univers mg tablet 7-29 by mouth ity of 21:42: as needed [place] [address] for Pain Medical (scale Branch 7-10). methylnaltr Yes Take by Un linda exone 7-29 mouth. ity of bromide 21:42: [place] ([facility] Medical ORAL) Branch potassium Yes Take by Univ ers (POTASSIMIN 7-29 mouth once it y of ORAL) 21:42: now. [place] [address] Medical Branch spironolact Yes 100mg Take 100 U nivers one 100 mg 7-29 mg by ity of tablet 21:42: mouth. [place] [address] Medical Branch eszopiclone Yes 2mg Take 2 mg U nivers 2 mg tablet 7-29 by mouth ity of 21:42: at [place] [address] bedtime. Medical Branch GABAPENTIN Yes Take by Uni vers ORAL 7-29 mouth. ity of 21:42: [place] [address] Medical Branch traMADOL 50 0 Yes 50mg Take 50 mg Univers mg tablet 7-29 by mouth ity of 21:42: as needed [place] [address] for Pain Medical (scale Branch 7-10). methylnaltr 2018-0 Yes Take by Un linda exone 7-29 mouth. ity of bromide 21:42: [place] (RELISTOR 13 Medical ORAL) Branch potassium Yes Take by Univ ers (POTASSIMIN 7-29 mouth once it y of ORAL) 21:42: now. [place] [address] Medical Branch spironolact Yes 100mg Take 100 U nivers one 100 mg 7-29 mg by ity of tablet 21:42: mouth. [place] [address] Medical Branch eszopiclone Yes 2mg Take 2 mg U nivers 2 mg tablet 7-29 by mouth ity of 21:42: at [place] [address] bedtime. Medical Branch GABAPENTIN Yes Take by Uni vers ORAL 7-29 mouth. ity of 21:42: [place] [address] Medical Branch traMADOL 50 Yes 50mg Take 50 mg Univers mg tablet 7-29 by mouth ity of 21:42: as needed [place] [address] for Pain Medical (scale Branch 7-10). methylnaltr Yes Take by Un linda exone 7-29 mouth. ity of bromide 21:42: [place] (RELISTOR 13 Medical ORAL) Branch potassium Yes Take by Univ ers (POTASSIMIN 7-29 mouth once it y of ORAL) 21:42: now. [place] [address] Medical Branch spironolact Yes 100mg Take 100 U nivers one 100 mg 7-29 mg by ity of tablet 21:42: mouth. [place] [address] Medical Branch eszopiclone Yes 2mg Take 2 mg U nivers 2 mg tablet 7-29 by mouth ity of 21:42: at [place] [address] bedtime. Medical Branch GABAPENTIN Yes Take by Uni vers ORAL 7-29 mouth. ity of 21:42: [place] [address] Medical Branch traMADOL 50 0 Yes 50mg Take 50 mg Univers mg tablet 7-29 by mouth ity of 21:42: as needed [place] [address] for Pain Medical (scale Branch 7-10). methylnaltr 0 Yes Take by Un linda exone 7-29 mouth. ity of bromide 21:42: [place] (RELISTOR 13 Medical ORAL) Branch potassium Yes Take by Univ ers (POTASSIMIN 7-29 mouth once it y of ORAL) 21:42: now. [place] [address] Medical Branch spironolact Yes 100mg Take 100 U nivers one 100 mg 7-29 mg by ity of tablet 21:42: mouth. [place] [address] Medical Branch eszopiclone Yes 2mg Take 2 mg U nivers 2 mg tablet 7-29 by mouth ity of 21:42: at [place] [address] bedtime. Medical Branch GABAPENTIN 0 Yes Take by Uni vers ORAL 7-29 mouth. ity of 21:42: [place] [address] Medical Branch traMADOL 50 Yes 50mg Take 50 mg Univers mg tablet 7-29 by mouth ity of 21:42: as needed [place] [address] for Pain Medical (scale Branch 7-10). methylnaltr 20190 Yes Take by Un linda exone 7-29 mouth. ity of bromide 21:42: [place] (RELISTOR 13 Medical ORAL) Branch potassium 0 Yes Take by Univ ers (POTASSIMIN 7-29 mouth once it y of ORAL) 21:42: now. [place] [address] Medical Branch spironolact Yes 100mg Take 100 U nivers one 100 mg 7-29 mg by ity of tablet 21:42: mouth. [place] [address] Medical Branch eszopiclone 0 Yes 2mg Take 2 mg U nivers 2 mg tablet 7-29 by mouth ity of 21:42: at [place] [address] [facility] Branch GABAPENTIN Yes Take by Uni vers ORAL 7-29 mouth. ity of 21:42: [place] [address] Medical Branch traMADOL 50 Yes 50mg Take 50 mg Univers mg tablet 7-29 by mouth ity of 21:42: as needed [place] [address] for Pain Medical (scale Branch 7-10). methylnaltr 0 Yes Take by Un linda exone 7-29 mouth. ity of bromide 21:42: [place] (RELISTOR 13 Medical ORAL) Branch potassium 0 Yes Take by [facility] ers (POTASSIMIN 7-29 mouth once it y of ORAL) 21:42: now. [place] [address] Medical Branch spironolact 20190 Yes 100mg Take 100 U nivers one 100 mg 7-29 mg by ity of tablet 21:42: mouth. [place] [address] Medical Branch eszopiclone 2019-0 Yes 2mg Take 2 mg U nivers 2 mg tablet 7-29 by mouth ity of 21:42: at [place] [address] [facility] Branch GABAPENTIN 20190 Yes Take by Uni vers ORAL 7-29 mouth. ity of 21:42: [place] [address] Medical Branch traMADOL 50 0 Yes 50mg Take 50 mg Univers mg tablet 7-29 by mouth ity of 21:42: as needed [place] [address] for Pain Medical (scale Branch 7-10). methylnaltr Yes Take by Un linda exone 7-29 mouth. ity of bromide 21:42: [place] (RELISTOR 13 Medical ORAL) Branch potassium Yes Take by Univ ers (POTASSIMIN 7-29 mouth once it y of ORAL) 21:42: now. [place] [address] Medical Branch spironolact Yes 100mg Take 100 U nivers one 100 mg 7-29 mg by ity of tablet 21:42: mouth. [place] [address] Medical Branch eszopiclone Yes 2mg Take 2 mg U nivers 2 mg tablet 7-29 by mouth ity of 21:42: at [place] [address] bedtime. Medical Branch GABAPENTIN Yes Take by Uni vers ORAL 7-29 mouth. ity of 21:42: [place] [address] Medical Branch traMADOL 50 Yes 50mg Take 50 mg Univers mg tablet 7-29 by mouth ity of 21:42: as needed [place] [address] for Pain Medical (scale Branch 7-10). methylnaltr Yes Take by Un linda exone 7-29 mouth. ity of bromide 21:42: [place] ([facility] Medical ORAL) Branch potassium Yes Take by Univ ers (POTASSIMIN 7-29 mouth once it y of ORAL) 21:42: now. [place] [address] Medical Branch spironolact Yes 100mg Take 100 U nivers one 100 mg 7-29 mg by ity of tablet 21:42: mouth. [place] [address] Medical Branch eszopiclone Yes 2mg Take 2 mg U nivers 2 mg tablet 7-29 by mouth ity of 21:42: at [place] [address] bedtime. Medical Branch GABAPENTIN Yes Take by Uni vers ORAL 7-29 mouth. ity of 21:42: [place] [address] Medical Branch traMADOL 50 0 Yes 50mg Take 50 mg Univers mg tablet 7-29 by mouth ity of 21:42: as needed [place] [address] for Pain Medical (scale Branch 7-10). methylnaltr 0 Yes Take by Un linda exone 7-29 mouth. ity of bromide 21:42: [place] (RELISTOR 13 Medical ORAL) Branch potassium Yes Take by Univ ers (POTASSIMIN 7-29 mouth once it y of ORAL) 21:42: now. [place] [address] Medical Branch spironolact Yes 100mg Take 100 U nivers one 100 mg 7-29 mg by ity of tablet 21:42: mouth. [place] [address] Medical Branch eszopiclone Yes 2mg Take 2 mg U nivers 2 mg tablet 7-29 by mouth ity of 21:42: at [place] [address] bedtime. Medical Branch GABAPENTIN Yes Take by Uni vers ORAL -29 mouth. ity of 21:42: [place] [address] Medical Branch traMADOL 50 Yes 50mg Take 50 mg Univers mg tablet 7-29 by mouth ity of 21:42: as needed [place] [address] for Pain Medical (scale Branch 7-10). methylnaltr Yes Take by Un linda exone - mouth. ity of bromide 21:42: [place] (RELISTOR 13 Medical ORAL) Branch potassium Yes Take by Univ ers (POTASSIMIN - mouth once it y of ORAL) 21:42: now. [place] [address] Medical Branch spironolact Yes 100mg Take 100 U nivers one 100 mg 7-29 mg by ity of tablet 21:42: mouth. [place] [address] Medical Branch eszopiclone Yes 2mg Take 2 mg U nivers 2 mg tablet 7-29 by mouth ity of 21:42: at [place] [address] bedtime. Medical Branch eszopiclone Yes 2mg Take 2 mg U nivers 2 mg tablet 7-29 by mouth ity of 21:42: at [place] [address] bedtime. Medical Branch GABAPENTIN Yes Take by Uni vers ORAL -29 mouth. ity of 21:42: [place] [address] Medical Branch traMADOL 50 Yes 50mg Take 50 mg Univers mg tablet 7-29 by mouth ity of 21:42: as needed [place] [address] for Pain Medical (scale Branch 7-10). lactulose 2019- No Take by Uni vers (KRISTALOSE 7-29 07-29 mouth 2 ity of ORAL) 20:49: 00:00 (two) [place] 08 :00 times Medical daily. Branch lactulose 2019 Yes [id number] 20g Take 1 Un linda (KRISTALOSE 7-29 Packet by ity of ) 20 gram 00:00: mouth 3 [place] packet 00 (three) Medical times Branch daily. lactulose 2019-0 Yes [id number] 20g Take 1 Un linda (KRISTALOSE 7-29 Packet by ity of ) 20 gram 00:00: mouth 3 [place] packet 00 (three) Medical times Branch daily. lactulose 2019-0 Yes [id number] 20g Take 1 Un linda (KRISTALOSE 7-29 Packet by ity of ) 20 gram 00:00: mouth 3 [place] packet 00 (three) Medical times Branch daily. lactulose 2019-0 Yes [id number] 20g Take 1 Un linda (KRISTALOSE 7-29 Packet by ity of ) 20 gram 00:00: mouth 3 [place] packet 00 (three) Medical times Branch daily. lactulose 2019-0 Yes [id number] 20g Take 1 Un linda (KRISTALOSE 7-29 Packet by ity of ) 20 gram 00:00: mouth 3 [place] packet 00 (three) Medical times Branch daily. lactulose 2019-0 Yes [id number] 20g Take 1 Un linda (KRISTALOSE 7-29 Packet by ity of ) 20 gram 00:00: mouth 3 [place] packet 00 (three) Medical times Branch daily. lactulose 2019-0 Yes [id number] 20g Take 1 Un linda (KRISTALOSE 7-29 Packet by ity of ) 20 gram 00:00: mouth 3 [place] packet 00 (three) Medical times Branch daily. lactulose 2019-0 Yes [id number] 20g Take 1 Un linda (KRISTALOSE 7-29 Packet by ity of ) 20 gram 00:00: mouth 3 [place] packet 00 (three) Medical times Branch daily. lactulose 2019-0 Yes [id number] 20g Take 1 Un linda (KRISTALOSE 7-29 Packet by ity of ) 20 gram 00:00: mouth 3 [place] packet 00 (three) Medical times Branch daily. lactulose 2019-0 Yes [id number] 20g Take 1 Un linda (KRISTALOSE 7-29 Packet by ity of ) 20 gram 00:00: mouth 3 [place] packet 00 (three) Medical times Branch daily. lactulose 2019-0 Yes [id number] 20g Take 1 Un linda (KRISTALOSE 7-29 Packet by ity of ) 20 gram 00:00: mouth 3 [place] packet 00 (three) Medical times Branch daily. lactulose 2019-0 Yes [id number] 20g Take 1 Un linda (KRISTALOSE 7-29 Packet by ity of ) 20 gram 00:00: mouth 3 [place] packet 00 (three) Medical times Branch daily. lactulose 2019-0 Yes [id number] 20g Take 1 Un linda (KRISTALOSE 7-29 Packet by ity of ) 20 gram 00:00: mouth 3 [place] packet 00 (three) Medical times Branch daily. lactulose 2019-0 Yes [id number] 20g Take 1 Un linda (KRISTALOSE 7-29 Packet by ity of ) 20 gram 00:00: mouth 3 [place] packet 00 (three) Medical times Branch daily. lactulose 2018- 2019- No 1{enema 1 Enema, Univers 300 mL 03-08 } Rectal, ity of (Added to 21:00: 03:09 Q4H, First [place] water or 00 :53 dose on Medical saline 700 [facility], [facility] mL) enema 1 03/08/19 at Enema 1600, Until Discontinu ed, Routine ondansetron 2018-0 Yes 4mg 4 mg, Unive rs (ZOFRAN) 03-08 Oral, Q8H, ity o f tablet 4 mg 19:45: First dose [place] 00 on [facility] 03/08/19 at Branch 1445, Until Discontinu ed, Routine lactulose 2018-0 Yes 20g 20 g, Univers (CEPHULAC) 03-08 Oral, TID, ity of packet 20 g 01:00: First dose [place] 00 on [facility] 03/07/19 at Branch 2000, Until Discontinu ed, Routine NaCl 0.9% 2019- No 250mL at 999 Univ ers (NS) IV 03-0727 mL/hr, IV ity of infusion 18:15: 18:13 Infusion, [place] 250 mL 00 :00 ONCE, 1 Medical dose, [facility] 03/07/19 at 1315, Routine rifAXIMin 2018-0 Yes 550mg 550 mg, Univ ers (XIFAXAN) 03-07 Oral, BID, ity of tablet 550 01:00: First dose [place] mg 00 on [facility] 03/06/19 at Branch 2000, Until Discontinu ed, Routine
Reason for Anti-Infec tive: Empiric Therapy for Suspected Infection< br>Empiric Therapy Site: Abdominal< br>Duratio n of therapy: 72 hours cyclobenzap 2019- No 10mg 10 mg, Uni vers rine 03-07 Oral, TID, ity of (FLEXERIL) 01:00: 05:40 First dose [place] tablet 10 00 :15 on Fri Medical mg 03/06/19 at Branch 2000, Until Discontinu ed, Routine lactated 2019- No 1000mL at 999 Univ ers ringers IV 03-07 mL/hr, ity of infusion 00:15: 01:46 1,000 mL, [place] 1,000 mL 00 :00 IV Medical Infusion, Branch ONCE, 1 dose, 03/06/19 at 1915, Routine ondansetron 2018- No 4mg 4 mg, Slow Univers (ZOFRAN 03-06 IV Push, ity of (PF)) 23:04: 19:35 Q6HPRN, [place] injection 4 12 :40 Starting Medi cj mg Fri [place] 03/06/19 at 1804, Until 03/08/19 at 1435, Routine, Nausea and Vomiting (N/V) peg-electro 2019- No 2000mL 2,000 mL, Univers lyte soln 03-06 Oral, ity of (GOLYTELY) 23:04: 01:47 PRE-PROCED [place] [id number] 12 :00 URE ONCE, Med ical .74 -5.86 1 dose, Branch gram Starting solution Fri 2,000 mL 03/06/19 at 1804, Until Discontinu ed, Routine, Bowel Prep, Colonoscop y sodium 2019- No 2{enema 2 Enema, Uni vers phosphates 03-06 } Rectal, ity o f (FLEET 19:30: 18:54 ONCE, 1 [place] ENEMA) 00 :00 dose, Fri Med ical gram/118 mL 03/06/19 at Br anch enema 2 1430, ANN Enema ciprofloxac 2019- No 200mg 200 mg, IV Univers in in 5 % 03-06 Piggyback, ity of dextrose 19:15: 19:30 Administer [place] (CIPRO) 00 :13 over 60 Medical piggyback Minutes, Branch 200 mg Q12H ABX, First dose on Sat03/06/19 at 1415, Until Discontinu ed, ANN
Re ason for Anti-Infec tive: Empiric Therapy for Suspected Infection< br>Empi barney Therapy Site: Abdominal< br>Duratio n of therapy: 7 days peg-electro 2019- No 4000mL 4,000 mL, Univers lyte soln 03-06 Oral, ity of (GOLYTELY) 17:25: 01:48 ONCE, 1 [place] as [id number] 00 :00 dose, Sat Med ical .74 -5.86 03/06/19 at Bran ch gram 1230, solution Routine 4,000 mL esomeprazol 2019- No 8mg/h [facility] ers e (NEXIUM) 03-06 ity of 80 mg in 17:00: 16:59 [place] NaCl 0.9% 00 :48 Medical (NS) 100 mL Branch IV infusion lactated 2018- No 1000mL at [address] [facility] ers ringers IV 03-06 mL/hr, ity of infusion 17:00: 18:59 1,000 mL, [place] as 1,000 mL 00 :00 IV Medical Infusion, Branch ONCE, 1 dose, Sat03/06/19 at 1200, Routine HYDROcodone Yes 1{tbl} 1 tablet, Univers -acetaminop 03-06 Oral, ity of hen (NORCO 16:36: Q6HPRN, [place] 5[place] 5-325 mg 44 Starting Medi cj tablet 1 Sat Branch tablet 03/06/19 at 1136, Until Discontinu ed, Routine, Pain (scale 7-10) acetaminoph Yes 650mg 650 mg, Un linda en 03-06 Oral, ity of (TYLENOL) 15:49: Q6HPRN, [place] tablet 650 23 Starting Medic al mg Sat Branch 03/06/19 at 1049, Until Discontinu ed, Routine, Pain (scale 1-3) FENTanyl PF 2019- No 25ug 25 mcg, Un linda (SUBLIMAZE 03-06 Slow IV ity o f (PF)) 12:15: 11:20 Push, [place] injection 00 :00 ONCE, 1 Medical 25 mcg dose, Fri Branch 03/06/19 at 0715, STAT ondansetron 2019-0 Yes [id number] 8mg Take 2 Univers 4 mg tablet 4-01 tablets by it y of 00:00: mouth [place] 00 every 8 Medical (eight) Branch hours as needed for Nausea and Vomiting (N/V). ondansetron 2019-0 Yes [id number] 8mg Take 2 Univers 4 mg tablet 4-01 tablets by it y of 00:00: mouth [place] 00 every 8 Medical (eight) Branch hours as needed for Nausea and Vomiting (N/V). ondansetron 2019-0 Yes [id number] 8mg Take 2 Univers 4 mg tablet 4-01 tablets by it y of 00:00: mouth [place] 00 every 8 Medical (eight) Branch hours as needed for Nausea and Vomiting (N/V). ondansetron 2019-0 Yes [id number] 8mg Take 2 Univers 4 mg tablet 4-01 tablets by it y of 00:00: mouth [place] 00 every 8 Medical (eight) Branch hours as needed for Nausea and Vomiting (N/V). ondansetron 2019-0 Yes [id number] 8mg Take 2 Univers 4 mg tablet 4-01 tablets by it y of 00:00: mouth [place] 00 every 8 Medical (eight) Branch hours as needed for Nausea and Vomiting (N/V). ondansetron 2019-0 Yes [id number] 8mg Take 2 Univers 4 mg tablet 4-01 tablets by it y of 00:00: mouth [place] 00 every 8 Medical (eight) Branch hours as needed for Nausea and Vomiting (N/V). ondansetron 2019-0 Yes [id number] 8mg Take 2 Univers 4 mg tablet 4-01 tablets by it y of 00:00: mouth [place] 00 every 8 Medical (eight) Branch hours as needed for Nausea and Vomiting (N/V). ondansetron 2019-0 Yes [id number] 8mg Take 2 Univers 4 mg tablet 4-01 tablets by it y of 00:00: mouth [place] 00 every 8 Medical (eight) Branch hours as needed for Nausea and Vomiting (N/V). ondansetron 2019-0 Yes [id number] 8mg Take 2 Univers 4 mg tablet 4-01 tablets by it y of 00:00: mouth [place] 00 every 8 Medical (eight) Branch hours as needed for Nausea and Vomiting (N/V). ondansetron 2019-0 Yes [id number] 8mg Take 2 Univers 4 mg tablet 4-01 tablets by it y of 00:00: mouth [place] 00 every 8 Medical (eight) Branch hours as needed for Nausea and Vomiting (N/V). ondansetron 2019-0 Yes [id number] 8mg Take 2 Univers 4 mg tablet 4-01 tablets by it y of 00:00: mouth [place] 00 every 8 Medical (eight) Branch hours as needed for Nausea and Vomiting (N/V). ondansetron 2019-0 Yes [id number] 8mg Take 2 Univers 4 mg tablet 4-01 tablets by it y of 00:00: mouth [place] 00 every 8 Medical (eight) Branch hours as needed for Nausea and Vomiting (N/V). ondansetron 2019-0 Yes [id number] 8mg Take 2 Univers 4 mg tablet 4-01 tablets by it y of 00:00: mouth [place] 00 every 8 Medical (eight) Branch hours as needed for Nausea and Vomiting (N/V). ondansetron 2018-0 Yes [id number] 8mg Take 2 Univers 4 mg tablet 4-01 tablets by it y of 00:00: mouth [place] 00 every 8 Medical (eight) Branch hours as needed for Nausea and Vomiting (N/V). acetaminoph 2019- No [id number] 1{tbl} Take 1 Univers en-codeine 4-01 07-29 tablet by ity of 300-30 mg 00:00: 00:00 mouth [place] tablet 00 :00 every 6 Medical (six) Branch hours as needed (pain). butalbital- 2018- Yes [id number] 1{capsu Take 1 Univers aspirin-caf 3-25 le} capsule by it y of feine 00:00: mouth [place] 50-325-40 00 every 4 Medical mg per (four) Branch capsule hours as needed for Pain (headache unrelieved wtih other medication s). butalbital- 2019-0 Yes [id number] 1{capsu Take 1 Univers aspirin-caf 3-25 le} capsule by it y of feine 00:00: mouth [place] 50-325-40 00 every 4 Medical mg per (four) Branch capsule hours as needed for Pain (headache unrelieved wtih other medication s). butalbital- 2019-0 Yes [id number] 1{capsu Take 1 Univers aspirin-caf 3-25 le} capsule by it y of feine 00:00: mouth [place] 50-325-40 00 every 4 Medical mg per (four) Branch capsule hours as needed for Pain (headache unrelieved wtih other medication s). butalbital Yes [id number] 1{capsu Take 1 Univers aspirin-caf 3-25 le} capsule by it y of feine 00:00: mouth [place] 50-325-40 00 every 4 Medical mg per (four) Branch capsule hours as needed for Pain (headache unrelieved wtih other medication s). butalbital Yes [id number] 1{capsu Take 1 Univers aspirin-caf 3-25 le} capsule by it y of feine 00:00: mouth [place] 50-325-40 00 every 4 Medical mg per (four) Branch capsule hours as needed for Pain (headache unrelieved wtih other medication s). butalbital Yes [id number] 1{capsu Take 1 Univers aspirin-caf 3-25 le} capsule by it y of feine 00:00: mouth [place] 50-325-40 00 every 4 Medical mg per (four) Branch capsule hours as needed for Pain (headache unrelieved wtih other medication s). butalbital Yes [id number] 1{capsu Take 1 Univers aspirin-caf 3-25 le} capsule by it y of feine 00:00: mouth [place] 50-325-40 00 every 4 Medical mg per (four) Branch capsule hours as needed for Pain (headache unrelieved wtih other medication s). butalbital Yes [id number] 1{capsu Take 1 Univers aspirin-caf 3-25 le} capsule by it y of feine 00:00: mouth [place] 50-325-40 00 every 4 Medical mg per (four) Branch capsule hours as needed for Pain (headache unrelieved wtih other medication s). butalbital Yes [id number] 1{capsu Take 1 Univers aspirin-caf 3-25 le} capsule by it y of feine 00:00: mouth [place] 50-325-40 00 every 4 Medical mg per (four) Branch capsule hours as needed for Pain (headache unrelieved wtih other medication s). butalbital Yes [id number] 1{capsu Take 1 Univers aspirin-caf 3-25 le} capsule by it y of feine 00:00: mouth [place] 50-325-40 00 every 4 Medical mg per (four) Branch capsule hours as needed for Pain (headache unrelieved wtih other medication s). butbital Yes [id number] 1{capsu Take 1 Univers aspirin-caf 3-25 le} capsule by it y of feine 00:00: mouth [place] 50-325-40 00 every 4 Medical mg per (four) Branch capsule hours as needed for Pain (headache unrelieved wtih other medication s). albital Yes [id number] 1{capsu Take 1 Univers aspirin-caf 3-25 le} capsule by it y of feine 00:00: mouth [place] 50-325-40 00 every 4 Medical mg per (four) Branch capsule hours as needed for Pain (headache unrelieved wtih other medication s). bital Yes [id number] 1{capsu Take 1 Univers aspirin-caf 3-25 le} capsule by it y of feine 00:00: mouth [place] 50-325-40 00 every 4 Medical mg per (four) Branch capsule hours as needed for Pain (headache unrelieved wtih other medication s). bital Yes [id number] 1{capsu Take 1 Univers aspirin-caf 3-25 le} capsule by it y of feine 00:00: mouth [place] 50-325-40 00 every 4 Medical mg per (four) Branch capsule hours as needed for Pain (headache unrelieved wtih other medication s). MELOXICAM 2017-08 2019- No TAKE 1 Unive rs 7.5 mg 09-23 TABLET BY ity of tablet 00:00: 00:00 MOUTH [place] 00 :00 EVERY DAY Medical Branch XIFAXAN 550 2016-08 Yes [id number] TAKE ONE Univers mg tablet 1-27 TABLET BY ity o f 00:00: MOUTH 2 [place] 00 TIMES A Medical DAY Branch PANTOPRAZOL 2016-08 Yes [id number] TAKE ONE Univers E 40 mg EC 1-27 TABLET BY ity of tablet 00:00: MOUTH [place] 00 EVERY DAY Medical Branch XIFAXAN 550 2016-08 Yes [id number] TAKE ONE Univers mg tablet 1-27 TABLET BY ity o f 00:00: MOUTH 2 [place] 00 TIMES A Medical DAY Branch PANTOPRAZOL 2017 Yes [id number] TAKE ONE Univers E 40 mg EC 1-27 TABLET BY ity of tablet 00:00: MOUTH [place] 00 EVERY DAY Medical Branch XIXAN 550 2016-08 Yes [id number] TAKE ONE Univers mg tablet 1-27 TABLET BY ity o f 00:00: MOUTH 2 [place] TIMES A Medical DAY Branch PANTOPRAZOL 2017 Yes [id number] TAKE ONE Univers E 40 mg EC 1-27 TABLET BY ity of tablet 00:00: MOUTH [place] 00 EVERY DAY Medical Branch XIXAN 550 2016-08 Yes [id number] TAKE ONE Univers mg tablet 1-27 TABLET BY ity o f 00:00: MOUTH 2 [place] TIMES A Medical DAY Branch PANTOPRAZOL 2017 Yes [id number] TAKE ONE Univers E 40 mg EC 1-27 TABLET BY ity of tablet 00:00: MOUTH [place] 00 EVERY DAY Medical Branch XIXAN 550 2016-08 Yes [id number] TAKE ONE Univers mg tablet 1-27 TABLET BY ity o f 00:00: MOUTH 2 [place] TIMES A Medical DAY Branch PANTOPRAZOL 2017 Yes [id number] TAKE ONE Univers E 40 mg EC 1-27 TABLET BY ity of tablet 00:00: MOUTH [place] 00 EVERY DAY Medical Branch XIFAXAN 550 2016-08 Yes [id number] TAKE ONE Univers mg tablet 1-27 TABLET BY ity o f 00:00: MOUTH 2 [place] TIMES A Medical DAY Branch PANTOPRAZOL 2017- Yes [id number] TAKE ONE Univers E 40 mg EC 1-27 TABLET BY ity of tablet 00:00: MOUTH [place] 00 EVERY DAY Medical Branch XIFAXAN 550 2016-08 Yes [id number] TAKE ONE Univers mg tablet 1-27 TABLET BY ity o f 00:00: MOUTH 2 [place] 00 TIMES A Medical DAY Branch PANTOPRAZOL 2017 Yes [id number] TAKE ONE Univers E 40 mg EC 1-27 TABLET BY ity of tablet 00:00: MOUTH [place] 00 EVERY DAY Medical Branch XIFAXAN 550 2016-08 Yes [id number] TAKE ONE Univers mg tablet 1-27 TABLET BY ity o f 00:00: MOUTH 2 [place] 00 TIMES A Medical DAY Branch PANTOPRAZOL 2017 Yes [id number] TAKE ONE Univers E 40 mg EC 1-27 TABLET BY ity of tablet 00:00: MOUTH [place] 00 EVERY DAY Medical Branch XIFAXAN 550 2016- Yes [id number] TAKE ONE Univers mg tablet 1-27 TABLET BY ity o f 00:00: MOUTH 2 [place] 00 TIMES A Medical DAY Branch PANTOPRAZOL 2017 Yes [id number] TAKE ONE Univers E 40 mg EC 1-27 TABLET BY ity of tablet 00:00: MOUTH [place] 00 EVERY DAY Medical Branch XIFAXAN 550 2016-08 Yes [id number] TAKE ONE Univers mg tablet 1-27 TABLET BY ity o f 00:00: MOUTH 2 [place] TIMES A Medical DAY Branch PANTOPRAZOL 2017 Yes [id number] TAKE ONE Univers E 40 mg EC 1-27 TABLET BY ity of tablet 00:00: MOUTH [place] 00 EVERY DAY Medical Branch XIFAXAN 550 2016-08 Yes [id number] TAKE ONE Univers mg tablet 1-27 TABLET BY ity o f 00:00: MOUTH 2 [place] TIMES A Medical DAY Branch PANTOPRAZOL 2017 Yes [id number] TAKE ONE Univers E 40 mg EC 1-27 TABLET BY ity of tablet 00:00: MOUTH [place] 00 EVERY DAY Medical Branch XIFAXAN 550 2016-08 Yes [id number] TAKE ONE Univers mg tablet 1-27 TABLET BY ity o f 00:00: MOUTH 2 [place] 00 TIMES A Medical DAY Branch XIFAXAN 550 2016-08 Yes [id number] TAKE ONE Univers mg tablet 1-27 TABLET BY ity o f 00:00: MOUTH 2 [place] TIMES A Medical DAY Branch PANTOPRAZOL 2017 Yes [id number] TAKE ONE Univers E 40 mg EC 1-27 TABLET BY ity of tablet 00:00: MOUTH [place] 00 EVERY DAY Medical Branch PANTOPRAZOL 2017- Yes [id number] TAKE ONE Univers E 40 mg EC 1-27 TABLET BY ity of tablet 00:00: MOUTH [place] 00 EVERY DAY Medical Branch XIFAXAN 550 2016- Yes [id number] TAKE ONE Univers mg tablet 1-27 TABLET BY ity o f 00:00: MOUTH 2 [place] 00 TIMES A Medical DAY Branch PANTOPRAZOL 2017 Yes [id number] TAKE ONE Univers E 40 mg EC 1-27 TABLET BY ity of tablet 00:00: MOUTH [place] 00 EVERY DAY Medical Branch FUROSEMIDE 2017-0 2019- No TAKE 1 Univ ers 40 mg 5-10 07-26 TABLET BY ity of tablet 00:00: 00:00 MOUTH [place] 00 :00 EVERY DAY Medical Branch acetaminoph 2017-0 Yes 1{tbl} Take 1 Un linda en-codeine 3-27 tablet by ity of (TYLENOL-CO 00:00: mouth [place] DEINE #3) 00 every 4 Medical 300-30 mg (four) Branch tablet hours as needed for Pain (scale 4-6) or Pain (scale 7-10). cyclobenzap 2017-0 Yes 10mg Take 1 Univ ers rine 10 mg 3-27 tablet by ity of tablet 00:00: mouth 3 [place] 00 (three) Medical times Branch daily. acetaminoph 2017-0 Yes 1{tbl} Take 1 Un linda en-codeine 3-27 tablet by ity of (TYLENOL-CO 00:00: mouth [place] DEINE #3) 00 every 4 Medical 300-30 mg (four) Branch tablet hours as needed for Pain (scale 4-6) or Pain (scale 7-10). cyclobenzap 2017-0 Yes 10mg Take 1 Univ ers rine 10 mg 3-27 tablet by ity of tablet 00:00: mouth 3 [place] 00 (three) Medical times Branch daily. acetaminoph 2017-0 Yes 1{tbl} Take 1 Un linda en-codeine 3-27 tablet by ity of (TYLENOL-CO 00:00: mouth [place] DEINE #3) 00 every 4 Medical 300-30 mg (four) Branch tablet hours as needed for Pain (scale 4-6) or Pain (scale 7-10). cyclobenzap 2017-0 Yes 10mg Take 1 Univ ers rine 10 mg 3-27 tablet by ity of tablet 00:00: mouth 3 [place] 00 (three) Medical times Branch daily. acetaminoph 2017-0 Yes 1{tbl} Take 1 Un linda en-codeine 3-27 tablet by ity of (TYLENOL-CO 00:00: mouth [place] DEINE #3) 00 every 4 Medical 300-30 mg (four) Branch tablet hours as needed for Pain (scale 4-6) or Pain (scale 7-10). cyclobenzap 2017-0 Yes 10mg Take 1 Univ ers rine 10 mg 3-27 tablet by ity of tablet 00:00: mouth 3 [place] 00 (three) Medical times Branch daily. acetaminoph 2017-0 Yes 1{tbl} Take 1 Un linda en-codeine 3-27 tablet by ity of (TYLENOL-CO 00:00: mouth [place] DEINE #3) 00 every 4 Medical 300-30 mg (four) Branch tablet hours as needed for Pain (scale 4-6) or Pain (scale 7-10). cyclobenzap Yes 10mg Take 1 Univ ers rine 10 mg 3-27 tablet by ity of tablet 00:00: mouth 3 [place] 00 (three) Medical times Branch daily. acetaminoph 0 Yes 1{tbl} Take 1 Un linda en-codeine 3-27 tablet by ity of (TYLENOL-CO 00:00: mouth [place] DEINE #3) 00 every 4 Medical 300-30 mg (four) Branch tablet hours as needed for Pain (scale 4-6) or Pain (scale 7-10). cyclobenzap Yes 10mg Take 1 Univ ers rine 10 mg 3-27 tablet by ity of tablet 00:00: mouth 3 00 (three) Medical times Branch daily. acetaminoph 0 Yes 1{tbl} Take 1 Un linda en-codeine 3-27 tablet by ity of (TYLENOL-CO 00:00: mouth [place] DEINE #3) 00 every 4 Medical 300-30 mg (four) Branch tablet hours as needed for Pain (scale 4-6) or Pain (scale 7-10). cyclobenzap 0 Yes 10mg Take 1 Univ ers rine 10 mg 3-27 tablet by ity of tablet 00:00: mouth 3 00 (three) Medical times Branch daily. acetaminoph [id number] Yes 1{tbl} Take 1 Un linda en-codeine 3-27 tablet by ity of (TYLENOL-CO 00:00: mouth [place] DEINE #3) 00 every 4 Medical 300-30 mg (four) Branch tablet hours as needed for Pain (scale 4-6) or Pain (scale 7-10). cyclobenzap 2017-0 Yes 10mg Take 1 Univ ers rine 10 mg 3-27 tablet by ity of tablet 00:00: mouth 3 [place] 00 (three) Medical times Branch daily. acetaminoph 0 Yes 1{tbl} Take 1 Un linda en-codeine 3-27 tablet by ity of (TYLENOL-CO 00:00: mouth [place] DEINE #3) 00 every 4 Medical 300-30 mg (four) Branch tablet hours as needed for Pain (scale 4-6) or Pain (scale 7-10). cyclobenzap 2017-0 Yes 10mg Take 1 Univ ers rine 10 mg 3-27 tablet by ity of tablet 00:00: mouth 3 [place] 00 (three) Medical times Branch daily. acetaminoph 2017-0 Yes 1{tbl} Take 1 Un linda en-codeine 3-27 tablet by ity of (TYLENOL-CO 00:00: mouth [place] DEINE #3) 00 every 4 Medical 300-30 mg (four) Branch tablet hours as needed for Pain (scale 4-6) or Pain (scale 7-10). acetaminoph 2017-0 Yes 1{tbl} Take 1 Un linda en-codeine 3-27 tablet by ity of (TYLENOL-CO 00:00: mouth [place] DEINE #3) 00 every 4 Medical 300-30 mg (four) Branch tablet hours as needed for Pain (scale 4-6) or Pain (scale 7-10). cyclobenzap 2017-0 Yes 10mg Take 1 Univ ers rine 10 mg 3-27 tablet by ity of tablet 00:00: mouth 3 [place] 00 (three) Medical times Branch daily. cyclobenzap 2017-0 Yes 10mg Take 1 Univ ers rine 10 mg 3-27 tablet by ity of tablet 00:00: mouth 3 [place] 00 (three) Medical times Branch daily. acetaminoph 2017-0 Yes 1{tbl} Take 1 Un linda en-codeine 3-27 tablet by ity of (TYLENOL-CO 00:00: mouth [place] DEINE #3) 00 every 4 Medical 300-30 mg (four) Branch tablet hours as needed for Pain (scale 4-6) or Pain (scale 7-10). cyclobenzap 2017-0 Yes 10mg Take 1 Univ ers rine 10 mg 3-27 tablet by ity of tablet 00:00: mouth 3 [place] 00 (three) Medical times Branch daily. acetaminoph 2017-0 Yes 1{tbl} Take 1 Un linda en-codeine 3-27 tablet by ity of (TYLENOL-CO 00:00: mouth [place] DEINE #3) 00 every 4 Medical 300-30 mg (four) Branch tablet hours as needed for Pain (scale 4-6) or Pain (scale 7-10). cyclobenzap Yes 10mg Take 1 Univ ers rine 10 mg 3-27 tablet by ity of tablet 00:00: mouth 3 [place] 00 (three) Medical times Branch daily. acetaminoph Yes 1{tbl} Take 1 Un linda en-codeine 3-27 tablet by ity of (TYLENOL-CO 00:00: mouth [place] DEINE #3) 00 every 4 Medical 300-30 mg (four) Branch tablet hours as needed for Pain (scale 4-6) or Pain (scale 7-10). cyclobenzap Yes 10mg Take 1 Univ ers rine 10 mg 3-27 tablet by ity of tablet 00:00: mouth 3 00 (three) Medical times Branch daily. methylPREDN 2019- No 84mg Take 21 Un linda ISolone 3-27 07-29 tablets by ity o f (MEDROL, 00:00: 00:00 mouth [place] YOCASTA,) 4 mg 00 :00 SEE-INSTRU Med ical tablets CTIONS. Branch follow package directions spironolact 2015-08 2019- No [id number] 25mg Take 1 Univers one -02 07-26 tablet by ity of (SPIRONOLAC 00:00: 00:00 [place] TONE) 25 mg 00 :00 daily. Medica l tablet Branch furosemide 2015-08 Yes 40mg Take 40 mg U nivers 40 mg 0-10 by mouth. ity of tablet 00:00: [place] [address] Medical Branch furosemide 2015-08 Yes 40mg Take 40 mg U nivers 40 mg 0-10 by mouth. ity of tablet 00:00: [place] Medical Branch furosemide 2015-08 Yes 40mg Take 40 mg U nivers 40 mg 0-10 by mouth. ity of tablet 00:00: [place] [address] Medical Branch furosemide 2015-08 Yes 40mg Take 40 mg U nivers 40 mg 0-10 by mouth. ity of tablet 00:00: [place] [address] Medical Branch furosemide 2015-08 Yes 40mg Take 40 mg U nivers 40 mg 0-10 by mouth. ity of tablet 00:00: [place] [address] Medical Branch furosemide 2015-08 Yes 40mg Take 40 mg U nivers 40 mg 0-10 by mouth. ity of tablet 00:00: [place] [facility] furosemide 2016- Yes 40mg Take 40 mg U nivers 40 mg 0-10 by mouth. ity of tablet 00:00: [place] [facility] furosemide 2016 Yes 40mg Take 40 mg U nivers 40 mg 0-10 by mouth. ity of tablet 00:00: [place] [facility] furosemide 2015-08 Yes 40mg Take 40 mg U nivers 40 mg 0-10 by mouth. ity of tablet 00:00: [place] [facility] furosemide 2015-08 Yes 40mg Take 40 mg U nivers 40 mg 0-10 by mouth. ity of tablet 00:00: [place] [facility] furosemide 2015-08 Yes 40mg Take 40 mg U nivers 40 mg 0-10 by mouth. ity of tablet 00:00: [place] [facility] furosemide 2015-08 Yes 40mg Take 40 mg U nivers 40 mg 0-10 by mouth. ity of tablet 00:00: [place] [facility] furosemide 2015-08 Yes 40mg Take 40 mg U nivers 40 mg 0-10 by mouth. ity of tablet 00:00: [place] [facility] furosemide 2015-08 Yes 40mg Take 40 mg U nivers 40 mg 0-10 by mouth. ity of tablet 00:00: [address] Allopurinol Allopurinol Yes [place] 2 tablets [facility] ent Clinics Immunizations Ordered Filled Immunization Date Status Comments [facility] e Immunization Name Name Influenza Virus 2018-04-21 Completed Universit y of Vaccine (3+ yrs) 00:00:00 [facility] Influenza Virus 2018-04-21 Completed Universit y of Vaccine (3+ yrs) 00:00:00 [facility] Influenza Virus 2018-04-21 Completed Universit y of Vaccine (3+ yrs) 00:00:00 [facility] Influenza Virus 2018-04-21 Completed Universit y of Vaccine (3+ yrs) 00:00:00 [facility] Influenza Virus 2018-04-21 Completed Universit y of Vaccine (3+ yrs) 00:00:00 [facility] Influenza Virus 2018-04-21 Completed Universit y of Vaccine (3+ yrs) 00:00:00 [facility] Influenza Virus 2018-04-21 Completed Universit y of Vaccine (3+ yrs) 00:00:00 [facility] Branch Influenza Virus 2018-04-21 Completed Universit y of Vaccine (3+ yrs) 00:00:00 [facility] Branch Influenza Virus 2018-04-21 Completed Universit y of Vaccine (3+ yrs) 00:00:00 [facility] Influenza Virus 2018-04-21 Completed Universit y of Vaccine (3+ yrs) 00:00:00 [facility] Influenza Virus 2018-04-21 Completed Universit y of Vaccine (3+ yrs) 00:00:00 [facility] Influenza Virus 2018-04-21 Completed Universit y of Vaccine (3+ yrs) 00:00:00 [facility] Influenza Virus 2018-04-21 Completed Universit y of Vaccine (3+ yrs) 00:00:00 [facility] Influenza Virus 2018-04-21 Completed Universit y of Vaccine (3+ yrs) 00:00:00 [facility] Branch Pneumococcal 13 2016-05-08 Completed Universit y of Conjugate, PCV13 00:00:00 [facility] [place] [facility] dical (Prevnar 13) Branch Pneumococcal 13 2016-05-08 Completed Universit y of Conjugate, PCV13 00:00:00 [place] [facility] (Prevnar 13) Branch Pneumococcal 13 2016-05-08 Completed Universit y of Conjugate, PCV13 00:00:00 [facility] [place] [facility] dical (Prevnar 13) Branch Pneumococcal 13 2016-05-08 Completed Universit y of Conjugate, PCV13 00:00:00 [facility] [place] [facility] dical (Prevnar 13) Branch Pneumococcal 13 2016-05-08 Completed Universit y of Conjugate, PCV13 00:00:00 [facility] [place] [facility] dical (Prevnar 13) Branch Pneumococcal 13 2016-05-08 Completed Universit y of Conjugate, PCV13 00:00:00 [facility] [place] [facility] dical (Prevnar 13) Branch Pneumococcal 13 2016-05-08 Completed Universit y of Conjugate, PCV13 00:00:00 [place] [facility] dical (Prevnar 13) Branch Pneumococcal 13 2016-05-08 Completed Universit y of Conjugate, PCV13 00:00:00 [facility] [place] [facility] dical (Prevnar 13) Branch Pneumococcal 13 2016-05-08 Completed Universit y of Conjugate, PCV13 00:00:00 [facility] [place] [facility] dical (Prevnar 13) Branch Pneumococcal 13 2016-05-08 Completed Universit y of Conjugate, PCV13 00:00:00 [place] [facility]ical (Prevnar 13) Branch Pneumococcal 13 2016-05-08 Completed Universit y of Conjugate, PCV13 00:00:00 [place] Me dical (Prevnar 13) Branch Pneumococcal 13 2016-05-08 Completed Universit y of Conjugate, PCV13 00:00:00 [place] Me dical (Prevnar 13) Branch Pneumococcal 13 2016-05-08 Completed Universit y of Conjugate, PCV13 00:00:00 [place] Me dical (Prevnar 13) Branch Pneumococcal 13 2016-05-08 Completed Universit y of Conjugate, PCV13 00:00:00 [place] Me dical (Prevnar 13) Branch Vital Signs Vital Name Observation Time Observation Value Comments Source Body height 2019-12-22 19:24:00 149.9 cm [facility] Body weight 2019-12-22 19:24:00 86.183 kg [facility] BMI 2019-12-22 19:24:00 38.38 kg/m2 [facility] Branch Body height 2019-12-22 19:24:00 149.9 cm [facility] [place] [facility] Body weight 2019-12-22 19:24:00 86.183 kg [facility] [place] [facility] BMI 2019-12-22 19:24:00 38.38 kg/m2 [facility] [place] [facility] Body height 2019-12-15 20:02:00 149.9 cm [facility] [place] [facility] Body weight 2019-12-15 20:02:00 86.183 kg [facility] [place] [facility] BMI 2019-12-15 20:02:00 38.38 kg/m2 [facility] [place] [facility] Body height 2019-12-08 21:00:00 149.9 cm [facility] [place] [facility] Body weight 2019-12-08 21:00:00 86.183 kg [facility] [place] [facility] BMI 2019-12-08 21:00:00 38.38 kg/m2 [facility] Systolic blood 2019-10-22 15:08:00 99 mm[Hg] Univer sity of pressure [facility] Diastolic blood 2019-10-22 15:08:00 67 mm[Hg] Unive rsity of pressure [facility] Body height 2019-10-22 15:08:00 149.9 cm Universi ty [facility] Body weight 2019-10-22 15:08:00 86.183 kg Universi ty [facility] BMI 2019-10-22 15:08:00 38.38 kg/m2 Universi ty [facility] Body height 2019-09-24 17:22:00 149.9 cm Universi ty [facility] Body weight 2019-09-24 17:22:00 86.183 kg Universi [facility] BMI 2019-09-24 17:22:00 38.38 kg/m2 [facility] Systolic blood 2019-03-09 20:19:00 113 mm[Hg] Univer sity pressure [facility] Diastolic blood 2019-03-09 20:19:00 64 mm[Hg] [facility] Heart rate 2019-03-09 20:19:00 68 /min [facility] Body temperature 2019-03-09 20:19:00 37.06 Georgette [facility] Respiratory rate 2019-03-09 20:19:00 18 /min [facility] Oxygen saturation in 2019-03-09 20:19:00 100 /min [facility] Arterial blood by [facility] Pulse oximetry Branch BMI 2019-03-06 20:06:00 38.78 kg/m2 [facility] Body height 2019-03-06 20:06:00 149.9 cm Universi [facility] Body weight 2019-03-06 20:06:00 87.091 kg [facility] Procedures Procedure Date / Time Performing Clinician Source Performed MEDICATION CORRESPONDENCE 2019-10-26 05:01:00 Doctor Unassigned, [facility] [place] [facility] BASIC METABOLIC PANEL 2019-03-09 08:41:00 Vin Cruz [facility] (NA, K, CL, CO2, GLUCOSE, [facility] BUN, CREATININE, CA) URINALYSIS 2019-03-09 01:27:00 West, [facility] URINE CULTURE 2019-03-09 01:27:00 [facility] HEPATIC FUNCTION PANEL 2019-03-08 09:29:00 West Cindy [facility] ([id number]) (ALB,T.PRO,BILI Medical Branch T,BU/BC,ALT,AST,ALK PHOS) BASIC METABOLIC PANEL 2019-03-08 09:29:00 [facility] (NA, K, CL, CO2, GLUCOSE, [facility] BUN, CREATININE, CA) CBC WITH DIFFERENTIAL 2019-03-08 09:29:00 [facility] 2019-03-07 18:50:00 [facility], PLASMA 2019-03-07 18:49:00 [facility] CHEST 1 VW 2019-03-07 18:30:00 [facility] BASIC METABOLIC PANEL 2019-03-07 09:38:00 [facility] (NA, K, CL, CO2, GLUCOSE, [facility] BUN, CREATININE, CA) PROFILE / HEMOGRAM 2019-03-07 09:38:00 Anthony [facility] GLYCOSYLATED HEMOGLOBIN 2019-03-07 09:38:00 Lizy Taylor [facility] (A1C) [facility] PROTHROMBIN TIME / INR 2019-03-07 09:38:00 [facility] PROFILE / HEMOGRAM 2019-03-07 05:42:[address] [facility] LACTIC ACID WHOLE BLOOD 2019-03-07 00:14:00 Jaimie Garcia [facility] COLONOSCOPY (ENDO) 2019-03-06 20:18:08 Indra Motta [facility] FLEXIBLE SIGMOIDOSCOPY 2019-03-06 20:08:00 Calos [facility] HEPATIC FUNCTION PANEL 2019-03-06 19:36:00 [facility] ([id number]) (ALB,T.PRO,BILI [facility] T,BU/BC,ALT,AST,ALK PHOS) PROFILE / HEMOGRAM 2019-03-06 19:36:00 Anthony, Vin Ochoa [facility] PROTHROMBIN TIME / INR 2019-03-06 19:36:00 Vin Cruz [facility] LACTIC ACID WHOLE BLOOD 2019-03-06 19:36:00 Vin Cruz [facility] AMMONIA, PLASMA 2019-03-06 08:09:00 Akanksha Jensen [facility] CT ABDOMEN PELVIS WO 2019-03-06 07:12:38 Akanksha Jensen [facility] CONTRAST [facility] URINALYSIS 2019-03-06 06:15:00 Akanksha Jensen [facility] LIPASE 2019-03-06 06:11:00 Akanksha Jensen [facility] COMP. METABOLIC PANEL 2019-03-06 06:11:00 Akanksha Jensen [facility] ([id number]) [facility] [place] CBC WITH DIFFERENTIAL 2019-03-06 06:11:00 Akanksha Jensen [facility] PROTHROMBIN TIME / INR 2019-03-06 06:11:00 Akanksha Jensen [facility] ACTIVATED PARTIAL 2019-03-06 06:11:00 [facility]anksha [facility] TYPE AND SCREEN 2019-03-06 06:11:00 Akanksha Jensen [facility] NOTICE OF PRIVACY 2019-03-06 05:34:54 Doctor Marlyn, [facility] [place] [facility] CONSENT/REFUSAL FOR 2019-03-06 05:34:21 Doctor Marlyn [facility] DIAGNOSIS AND TREATMENT [place] [facility] HOSPITAL ADMISSION 2019-03-06 05:01:00 Doctor Marlyn [facility] Name [facility] [place] Encounters Start End Encounter Admission Attending Care Care Encounter Source Date/Time Date/Time Type Type Clinicians Facility Department ID 2021-07-12 2021-07-12 ambulatory [facility]LMLC [facility] [id number] [facility] Gurpreet Orellana ent Clinics 2021-06-28 2021-06-28 Emergency [facility], [facility] [id number] [place] 00:00:00 00:00:00 K[address]CEE [address] 2021-06-18 2021-06-21 Inpatient ROLANDO, [facility] [id number] [place] 00:00:00 00:00:00 CU[address]EMOC [address] 2021-06-08 2021-06-08 Outpatient [facility] [id number] [place] 00:00:00 00:00:[address] 2021-05-31 2021-06-02 Inpatient CHELA, [facility] [id number] [place] 00:00:00 00:00:00 ANDRES [address] 2021-05-24 2021-05-27 Inpatient ROLANDO, [facility] [id number] [place] 00:00:00 00:00:00 CUAU[address]EMOC [address] 2021-05-23 2021-05-23 Outpatient [facility]LMLC [facility] [id number] [facility] 2021-05-19 2021-05-19 Outpatient [facility]LMLC [facility] [id number] [facility] 2021-05-01 2021-05-01 Outpatient STLMLC STLMLC [id number] [facility] 2021-04-26 2021-04-26 Outpatient STLMLC STLMLC [id number] [facility] 2021-04-26 2021-04-26 Outpatient [facility]LMLC [facility] [id number] [facility] 2021-04-26 2021-04-26 Outpatient STLMLC STLMLC [id number] [facility] 2021-01-13 2021-01-13 Outpatient STLMLC STLMLC [id number] [facility] 2020-12-13 2020-12-13 Outpatient STLC STLC [id number] LALITA Houser 00:00:00 00:00:00 [facility] 2020-11-22 2020-11-23 Outpatient TING [facility] [id number] [place] 00:00:00 00:00:00 SWAPNA Jonathan2 Method [facility] [address] 2020-11-17 2020-11-17 Outpatient [facility] [id number] [facility] 00:00:00 00:00:00 [facility] 2020-11-02 2020-11-02 Outpatient GALATI, [facility] [id number] [place] 00:00:00 00:00:00 CALOS [address] 2020-11-02 2020-11-02 Outpatient GALATI, [facility] [id number] [place] 00:00:00 00:00:00 CALOS [address] 2020-10-26 2020-10-26 Outpatient SEATTLE, [facility] [id number] [place] 00:00:00 00:00:00 AGUSTÍN [address] 2020-10-26 2020-10-26 Outpatient TELLO, [facility] [id number] [place] 00:00:00 00:00:00 AGUSTÍN [address] 2020-10-23 2020-10-24 Inpatient DINAKAChristiana, [facility] [id number] [place] 00:00:00 00:00:00 CUAUHTEMOC [address] 2020-10-11 2020-10-11 Outpatient [facility] [id number] LALITA Houser 00:00:00 00:00:00 [facility] 2020-10-09 2020-10-09 Emergency HOLCOMB, [facility] [id number] [place] 00:00:00 00:00:[address] ATIF [address] 2020-10-03 2020-10-03 Outpatient STLMLC STLC [id number] LALITA [place]ouser 00:00:00 00:00:00 [facility] 2020-09-19 2020-09-21 Inpatient DESTINI CUETO [facility] [id number] [place] 00:00:00 00:00:[address] 2020-09-14 2020-09-14 Outpatient STLMLC [facility]LML[facility] [id number] [facility] 2020-08-31 2020-09-02 Inpatient ROLANDO, [facility] [id number] [place] 00:00:00 00:00:00 CUAUHTEMOC [address] 2020-08-10 2020-08-13 Inpatient YORK, [facility] [id number] [place] 00:00:00 00:00:00 ANDRES [address] 2020-08-09 2020-08-09 Emergency NUSZEN, [facility] [id number] [place] 00:00:00 00:00:00 KAYCEE [address] 2020-08-08 2020-08-08 Emergency ELLE, [facility] [id number] [place] 00:00:00 00:00:00 NOBLE [address] 2020-07-27 2020-07-27 Outpatient STLMLC [facility] [id number] [facility] 2020-07-18 2020-07-18 Outpatient [facility] [id number] [place] 00:00:00 00:00:[address] 2020-07-04 2020-07-07 Inpatient DESTINI CUETO [facility] [id number] [place] 00:00:00 00:00:[address] 2020-06-28 2020-06-28 Outpatient STLMLC STLMLC [id number] [facility] 2020-06-20 2020-06-20 Outpatient STLMLC STLMLC [id number] [facility] 2020-05-30 2020-06-03 Inpatient DESTINI CUETO [facility] [id number] [place] 00:00:00 00:00:[address] 2020-05-27 2020-05-27 Outpatient YALAMANCHIL [facility] [id number] [place] 00:00:00 00:00:00 YIFAN Torres [address] 2020-05-20 2020-05-20 Outpatient [facility] [id number] [facility] 00[facility]:00 [facility] Outpat[facility] ent Clinics 2020-05-13 2020-05-17 Inpatient MARYBETH, [facility] [id number] [place] 00:00:00 00:00:00 [facility] 2020-04-13 2020-04-21 Inpatient YOJANA, [facility] [id number] [place] 00:00:00 00:00:00 JUNO Quiñonez9 [facility] [address] 2020-04-13 2020-04-13 [facility] [id number] 16:02:00 16:02:[address] Luke s - Drive [facility] Medicine l Medicine Outpati ent Clinics 2020-04-13 2020-04-13 [facility] [id number] 09:33:00 09:33:[address] [employer] App s - Drive [facility] Medicine l Medicine Outpati ent Clinics 2020-04-05 2020-04-05 [facility] [id number] 09:10:00 09:10:[address] Luke s - Drive [facility] l Medicine Outpati ent Clinics 2020-04-04 2020-04-04 [facility] [id number] 10:58:00 10:58:[address] [employer] App s - Drive [facility] l Medicine Outpati ent Clinics 2020-04-04 2020-04-04 [facility] [id number] 10:00:00 10:00:[address] [employer] App s - Drive [facility] Medicine l Medicine Outpati ent Clinics 2020-03-17 2020-03-19 Inpatient TING [facility] [id number] [place] 00:00:00 00:00:00 Ben BARCENAS Method [facility] [address] [facility] 2020-03-16 2020-03-16 [facility] [id number] 11:12:00 11:12:[address] [employer] App s - Drive [facility] l Medicine Outpati ent Clinics 2020-03-14 2020-03-14 Outpatient JACQUELIN, [facility] [id number] [place] 00:00:00 00:00:00 AHMED [address] 2020-03-10 2020-03-10 [facility] [id number] 13:18:00 13:18:00 t Kelk[employer] [facility] Outpati ent Clinics 2020-03-07 2020-03-07 [facility] [id number] 16:07:00 16:07:00 t [facility] [facility] Outpati ent Clinics 2020-03-04 2020-03-04 [facility] [id number] 11:00:00 11:00:00 t [facility] [facility] Outpati ent Clinics 2020-03-04 2020-03-04 [facility] [id number] 11:00:00 11:00:00 t [facility] [facility] Outpati ent [facility] 2020-03-04 2020-03-04 Outpatient MEAGAN, [facility] [id number] [place] 00:00:00 00:00:00 JAYASIMHA 578 Meth erasto 2020-02-18 2020-02-21 Inpatient YORK, [facility] [id number] [place] 00:00:00 00:00:00 ANDRES 304 Method i 2020-01-18 2020-01-20 Inpatient DINAKAR, [facility] [id number] [place] 00:00:00 00:00:00 CUAUHTEMOC 881 Method i 2020-01-07 2020-01-11 Inpatient YORK, [facility] [id number] [place] 00:00:00 00:00:00 ANDRES 087 Method i 2019-12-29 2019-12-29 [facility] [id number] 07:03:00 07:03:00 t Kel[employer] Outpati ent [facility] 2019-12-23 2019-12-25 Inpatient TING [facility] [id number] [place] 00:00:00 00:00:00 Reynaldo BARCENAS Method i BAYLEE 2019-12-23 2019-12-23 Outpatient JACQUELIN, [facility] [id number] [place] 00:00:00 00:00:00 AHMED [address] 2019-12-22 2019-12-22 [facility] 1.2.840.114 [id number] 14:08:03 14:56:41 Visit [facility] [id number] Surgical [id number] Specialti [id number] es [address] 2019-12-22 2019-12-22 [facility] 1.2.840.114 [id number] Univers 14:08:03 14:56:41 Visit [facility] Health [id number] it y of Surgical [id number] Brent as Specialti [id number] Al dical es 198 [facility] 2019-12-22 2019-12-22 [facility] [id number] Univers 14:15:00 14:15:00 LITA [id number] [facility] 2019-12-22 2019-12-22 [facility] [id number] Univers 14:15:00 14:15:00 [facility] 2019-12-15 2019-12-15 [facility] 1.2.840.114 [id number] Univers 14:57:28 15:12:28 Visit [facility] Health [id number] it y of Surgical [id number] Brent as Specialti [id number] Me dical es 198 [facility] 2019-12-15 2019-12-15 [facility] [id number] Univers 15:00:00 15:00:00 LITA [facility] 2019-12-15 2019-12-15 [facility] [id number] Univers 15:00:00 15:00:00 LITA [facility] 2019-12-08 2019-12-08 [facility] 1.2.840.114 [id number] Univers 15:45:23 16:15:13 Visit [facility] Health [id number] it y of Surgical [id number] Brent as Specialti [id number] Me dical es 198 [facility] 2019-12-08 2019-12-08 Outpatient [facility] [id number] Univers 16:00:00 16:00:00 LITA ity [facility] 2019-12-08 2019-12-08 Outpatient [facility] [id number] Univers 13:45:00 13:45:00 LITA [id number] ity [facility] 2019-12-08 2019-12-08 [facility]patient [facility] [id number] Univers 13:45:00 13:45:00 [facility] 2019-10-30 [facility] [id number] Univers 10:15:00 10:15:00 LITA ity [facility] 2019-10-30 2019-10-30 [facility]patient [facility] [id number] Univers 10:15:00 10:15:00 [facility] 2019-10-26 2019-10-26 Orders Doctor KIRIT 1.2.840.114 [id number] Univers 00:00:00 00:00:00 Only Unassigned, MICHAEL [id number] ity of [place] [facility] 4.2.7.2.686 Brent as [id number] [address] 2019-10-22 2019-10-22 Outpatient [facility] [id number] Univers 16:15:00 16:15:00 LITA [id number] ity [facility] 2019-10-22 2019-10-22 Outpatient [facility] [id number] Univers 16:15:00 16:15:00 [facility] 2019-10-22 2019-10-22 Office [facility] 1.2.840.114 [id number] Univers 10:06:57 10:56:32 Visit [facility] [id number] it y of Surgical [id number] Brent as Specialti [id number] Me dical es 198 [facility] 2019-10-22 2019-10-22 Outpatient [facility] [id number] Univers 10:15:00 10:15:00 LITA [facility] 2019-10-12 2019-10-15 Inpatient CHELA [facility] [id number] [place] 00:00:00 00:00:00 ANDRES 906 Method i 2019-09-24 2019-09-24 Office [facility] 1.2.840.114 [id number] Univers 11:21:26 11:41:20 Visit [facility] [id number] it y of Surgical [id number] Brent as Specialti [id number] Al dical es [address] [place] 2019-09-24 2019-09-24 [facility] [id number] Univers 11:15:00 11:41:20 [facility] 2019-09-01 2019-09-03 Inpatient CHELA [facility] [id number] [place] 00:00:00 00:00:00 ANDRES 637 Method i 2019-07-20 2019-07-20 [facility] [id number] 14:02:00 14:02:00 Kelkoo [facility] 2019-07-16 2019-07-16 [facility] [id number] 13:15:00 13:15:00 [facility] [employer] [facility] Medicine Outpati ent Clinics 2019-06-16 2019-06-18 Inpatient CHELA [facility] [id number] [place] 00:00:00 00:00:00 ANDRES 382 Method i 2019-05-07 2019-05-08 Outpatient DARCY, UMAR [facility] [id number] [place] 00:00:00 00:00:00 691 Method i 2019-04-23 2019-04-23 Outpatient GALATI, [facility] [id number] [place] 00:00:00 00:00:00 CALOS 089 Method i 2019-04-23 2019-04-23 Outpatient JACQUELIN, [facility] [id number] [place] 00:00:00 00:00:00 AHMED [address] 2019-04-15 2019-04-15 [facility] [id number] 14:19:00 14:19:[address] Luke s - Drive [facility] Medicine Outpati ent Clinics 2019-04-09 2019-04-09 [facility] [id number] 14:00:00 14:00:[address] Luke s - Drive [facility] Medicine l Medicine Outpati ent Clinics 2019-03-10 2019-03-10 Transition Bennie Ma 1.2.840.114 [id number] Univers 00:00:00 00:00:00 of Care Anabell Walkery [id number] it y of [place] 4.2.7.2.686 [facility] [id number] [facility] [address] 2019-03-06 2019-03-09 [facility] Ak[facility]ha Jensen 1.2.840. 114 [id number] Univers 00:42:03 16:11:00 Encounter Indra Motta 350.1.13.1 0 ity of [facility] 4.2.7.2.686 [place] [id number] [facility] [address] 2019-01-21 2019-01-21 Emergency X CHAKRABORTY, [facility] ERT [id number] Univers 19:21:56 22:21:00 MARTELL lakhaniy [facility] 2018-09-09 2018-09-09 [facility] [id number] 14:45:00 14:45:[address] [place] [employer] s - Drive [facility] Medicine Outpati ent Clinics 2018-04-15 2018-04-15 [facility] [id number] 12:02:00 12:02:[address] [place] [employer] s - Drive [facility] Medicine Medicine Outpati ent Clinics 2018-02-19 2018-02-19 [facility] [id number] 15:08:00 15:08:[address] [employer] Lu[employer] App s - Drive [facility] Medicine l Medicine Outpati ent Clinics 2018-01-24 2018-01-24 [facility] [id number] 11:15:00 11:15:[address] [place] Luke s - Drive [facility] Out[facility] Clinics Results Test Description Test Time Test Comments Results Result Comments Source SARS-CoV-2 (COVID-19) RNA [Presence] in Respiratory sp ecimen by 2021-06-28 14:46:31 GUSTAVO with probe detection Test Item Value Reference Range Interpretation Comme nts SARS-CoV-2 (COVID-19) RNA [Presence] in Respiratory Not detected No t-Detected specimen by GUSTAVO with probe detection (test code = 48721-0) 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 (test code = 63000-6) Whether the patient has symptoms related to condition of interest (test code = 16985-3) Patient was hospitalized because of this condition (test code = 58891-6) Whether the patient was admitted to intensive care unit (ICU) for condition of interest (test code = 00603-8) Whether patient resides in a congregate care setting (test code = 63532-3) status (test code = 29296-7) SARS-CoV-2 (COVID-19) RNA [Presence] in Respiratory specimen by GUSTAVO with probe [id number] 19:52:10 Test Item Value Reference Range Interpretation Comments SARS-CoV-2 (COVID-19) RNA Not detected Not-Detected [Presence] in Respiratory specimen by GUSTAVO with probe detection (test code = 25688-2) 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 (test code = 12435-9) Whether the patient has symptoms related to condition of interest (test code = 81890-8) Patient was hospitalized because of this condition (test code = 06396-0) Whether the patient was admitted to intensive care unit (ICU) for condition of interest (test code = 50798-4) Whether patient resides in a congregate care setting (test code = 59872-1) status (test code = 45277-9) SARS-CoV-2 (COVID-19) RNA [Presence] in Respiratory specimen by GUSTAVO with probe [id number] 19:31:11 Test Item Value Reference Range Interpretation Comments SARS-CoV-2 (COVID-19) RNA Not detected Not-Detected [Presence] in Respiratory specimen by GUSTAVO with probe detection (test code = 18683-9) 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 (test code = 22762-8) Whether the patient has symptoms related to condition of interest (test code = 21399-0) Patient was hospitalized because of this condition (test code = 59420-6) Whether the patient was admitted to intensive care unit (ICU) for condition of interest (test code = 47162-4) Whether patient resides in a congregate care setting (test code = 51971-8) status (test code = 01955-9) SARS-CoV-2 (COVID-19) RNA [Presence] in Respiratory specimen by GUSTAVO with probe [id number] 02:26:38 Test Item Value Reference Range Interpretation Comments SARS-CoV-2 (COVID-19) RNA Not detected Not-Detected [Presence] in Respiratory specimen by GUSTAVO with probe detection (test code = 41017-2) SARS-CoV-2 (COVID-19) RNA [Presence] in Respiratory specimen by GUSTAVO with probe [id number] 21:10:32 Test Item Value Reference Range Interpretation Comments SARS-CoV-2 (COVID-19) RNA Not detected Not-Detected [Presence] in Respiratory specimen by GUSTAVO with probe detection (test code = 21328-2) SARS-CoV-2 (COVID-19) RNA [Presence] in Respiratory specimen by GUSTAVO with probe [id number] 19:03:37 Test Item Value Reference Range Interpretation Comments SARS-CoV-2 (COVID-19) RNA Not detected Not-Detected [Presence] in Respiratory specimen by GUSTAVO with probe detection (test code = 59848-3) SARS-CoV-2 (COVID-19) RNA [Presence] in Respiratory specimen by GUSTAVO with probe [id number] 05:36:17 Test Item Value Reference Range Interpretation Comments SARS-CoV-2 (COVID-19) RNA Not detected Not-Detected [Presence] in Respiratory specimen by GUSTAVO with probe detection (test code = 35300-6) SARS-CoV-2 (COVID-19) IgG+IgM Ab [Presence] in Serum or Plasma by Immunoassay 2020-08-13 09:52:00 Test Item Value Reference Range Interpretation Comments SARS-CoV-2 (COVID-19) IgG+IgM Ab Not detected [Presence] in Serum or Plasma by Immunoassay (test code = 87064-2) SARS-CoV-2 (COVID-19) RNA [Presence] in Respiratory specimen by GUSTAVO with probe [id number] 04:46:40 Test Item Value Reference Range Interpretation Comments SARS-CoV-2 (COVID-19) RNA [Presence] Detected Not-Detected in Respiratory specimen by GUSTAVO with probe detection (test code = 17633-9) SARS-CoV-2 (COVID-19) RNA [Presence] in Respiratory specimen by GUSTAVO with probe [id number] 00:55:48 Test Item Value Reference Range Interpretation Comments SARS-CoV-2 (COVID-19) RNA Not detected Not-Detected [Presence] in Respiratory specimen by GUSTAVO with probe detection (test code = 16551-5) SARS-CoV-2 (COVID-19) RNA [Presence] in Respiratory specimen by GUSTAVO with probe [id number] 08:17:26 Test Item Value Reference Range Interpretation Comments SARS-CoV-2 (COVID-19) RNA Not detected Not-Detected [Presence] in Respiratory specimen by GUSTAVO with probe detection (test code = 65844-8) SARS-CoV-2 (COVID-19) RNA [Presence] in Respiratory specimen by GUSTAVO with probe [id number] 00:04:18 Test Item Value Reference Range Interpretation Comments SARS-CoV-2 (COVID-19) RNA Not detected Not-Detected [Presence] in Respiratory specimen by GUSTAVO with probe detection (test code = 02618-8) SARS-CoV-2 (COVID-19) RNA [Presence] in Respiratory specimen by GUSTAVO with probe [id number] 04:41:17 Test Item Value Reference Range Interpretation Comments SARS-CoV-2 (COVID-19) RNA Not detected Not-Detected [Presence] in Respiratory specimen by GUSTAVO with probe detection (test code = 61380-5) SARS-CoV-2 (COVID-19) RNA [Presence] in Respiratory specimen by GUSTAVO with probe [id number] 04:13:39 Test Item Value Reference Range Interpretation Comments SARS-CoV-2 (COVID-19) RNA Not detected Not-Detected [Presence] in Respiratory specimen by GUSTAVO with probe detection (test code = 55015-7) URINE [id number] 20:48:00 Test Item Value Reference Range Interpretation Comments URINE CULTURE (test > 100,000 CFU/mL mixed code = 630-4) aerobic organisms - suggests endogenous microbial contamination [facility] METABOLIC PANEL (NA, K, CL, CO2, GLUCOSE, BUN, CREATININE, CA)2019-03-09 09:38:00 Test Item Value Reference Range Interpretation Comments NA (test code = 142 mmol/L 135-145 1973642316) K (test code = 3.8 mmol/L 3.5-5 9508860965) CL (test code = 120 mmol/L 98-108 H 6855601400) CO2 TOTAL (test code = 19 mmol/L 23-31 L 3580494517) AGAP (test code = 2-16 6848865073) BUN (test code = 16 mg/dL 7-23 1989823114) GLUCOSE (test code = 91 mg/dL 70-110 2350315098) CREATININE (test code = 1.21 mg/dL 0.5-1.04 H 0882264127) CALCIUM (test code = 9.0 mg/dL 8.6-10.6 5724857013) eGFR Calculation mL/min/1.73m2 (Non-) (test code = 9331235602) eGFR Calculation mL/min/1.73m2 () (test code = 4903220936) REJI (test code = REJI) Association of Glomerular Filtration Rate (GFR) and Staging of Kidney Disease*+ + + +| GFR (mL/min/1.73 m2)?| With Kidney Damage?|?Without Kidney Damage+ --------+ --------+ +|?>90?|?S tage one?|? Normal?+ ---------+ ---------+ +|?60-89? |?Stage two?|? Decreased GFR? + --+ --+ ------+|?30-59?|?Stage three?|? Stage three? + --+ --+ ------+|?15-29?|?Stage four? |? Stage four?+ -------+ -------+ +|?<15 (or dialysis)?|?Stage five? |? Stage five?+ -------+ -------+ +*Each stage assumes the associated GFR level has been in effect for at least three months.?Stages 1 to 5, with or without kidney disease, indicate chronic kidney disease.Notes: Determination of stages one and two (with eGFR >59mL/min/1.73 m2) requires estimation of kidney damage for at least three months as defined by structural or functional abnormalities of the kidney, manifested by either:Pathological abnormalities or Markers of kidney damage (including abnormalities in the composition of the blood or urine or abnormalities in imaging tests). Lab Interpretation Abnormal (test code = 15191-2) [facility] 02:12:00 Test Item Value Reference Range Interpretation Comments APPEARANCE (test code = Clear Clear 0973590989) COLOR (test code = Yellow Yellow 1089052196) PH (test code = 4.8-8.0 8128912029) SP GRAVITY (test code = 1.003-1.030 8162914435) GLU U QUAL (test code = Normal Normal 6657069631) BLOOD (test code = Negative Negative 9080460110) KETONES (test code = Negative Negative 1984089082) PROTEIN (test code = Negative Negative 2887-8) UROBILIN (test code = 2.0 mg/dL Normal A Errone ous false 4801632175) urobilinogen layton s been indicated by e test bolt labeler.? Review all positive urobilinogen re lative to serum biliru bin results. BILIRUBIN (test code = Negative Negative 0004254787) NITRITE (test code = Negative Negative 8139089411) LEUK BETTINA (test code = Negative Negative 9149840088) RBC/HPF (test code = See_Comment [Autom ated message] 7030936845) The system [employer] generated this result transmitted ref erence range: 0 - 3 HP F. The reference range was not used to int erpret this result as normal/abnormal . WBC/HPF (test code = See_Comment [Autom ated message] 8990928675) The system [employer] generated this result transmitted ref erence range: 0 - 5 HP F. The reference range was not used to int erpret this result as normal/abnormal . BACTERIA (test code = Negative Negative 5225529860) MUCOUS (test code = Slight Negative LPF A 5610767317) SQ EPITH (test code = See_Comment H [Auto mated message] 4370029587) The system [employer] generated this result transmitted ref erence range: <=2 HPF. The reference range was not used to int erpret this result as normal/abnormal . Lab Interpretation Abnormal (test code = 97495-2) [facility] [id number] 13:55:31 No acute cardiopulmonary abnormality. Mildly displaced right posterolateral 6 rib fracture. IAntnoieta MD., have reviewed this study and agree with the abovereport.EXAM: XR CHEST 1 VW HISTORY: encephalopathy COMPARISON: None FINDINGS: Mild pulmonary vascular congestion. No focal consolidation, p leuraleffusion or pneumothorax is seen. The cardiac silhouette is normal in size. No acute bony abnormality. Mildly displaced left posterolateral 6 ribfracture. [facility], Radiant Results Inft User - 03/08/2019 8:55 AM CDTEXAM: XR CHEST 1 VWHISTORY: encephalopathy COMPARISON: NoneFINDINGS:Mild pulmonary v ascular congestion. No focal consolidation, pleuraleffusion or pneumothorax is seen. The cardiac silhouette is normal in size.No acute bony abnormality. Mildly displaced left posterolateral 6 ribfracture.IMPRESSIONNo acute cardiopulmonary abnormality.Mildly displaced right posterolateral 6 rib fracture.I, Ramesh Gallo MD., have reviewed this study and agree with the abovereport.[facility] (NA, K, CL, CO2, GLUCOSE, BUN, CREATININE, CA)2019-03-08 11:04:00 Test Item Value Reference Range Interpretation Comments NA (test code = 143 mmol/L 135-145 2832367664) K (test code = 3.9 mmol/L 3.5-5 0058153096) CL (test code = 121 mmol/L 98-108 H 9211085807) CO2 TOTAL (test code = 19 mmol/L 23-31 L 8415143424) AGAP (test code = 2-16 9104654590) BUN (test code = 21 mg/dL 7-23 9776869403) GLUCOSE (test code = 98 mg/dL 70-110 0330773566) CREATININE (test code = 1.36 mg/dL 0.5-1.04 H 2897511688) CALCIUM (test code = 8.8 mg/dL 8.6-10.6 3329570623) eGFR Calculation mL/min/1.73m2 (Non-) (test code = 8038586496) eGFR Calculation mL/min/1.73m2 () (test code = 9885995703) REJI (test code = REJI) Association of Glomerular Filtration Rate (GFR) and Staging of Kidney Disease*+ + + +| GFR (mL/min/1.73 m2)?| With Kidney Damage?|?Without Kidney Damage+ --------+ --------+ +|?>90?|?S tage one?|? Normal?+ ---------+ ---------+ +|?60-89? |?Stage two?|? Decreased GFR? + --+ --+ ------+|?30-59?|?Stage three?|? Stage three? + --+ --+ ------+|?15-29?|?Stage four? |? Stage four?+ -------+ -------+ +|?<15 (or dialysis)?|?Stage five?? |? Stage five?+ -------+ -------+ +*Each stage assumes the associated GFR level has been in effect for at least three months.?Stages 1 to 5, with or without kidney disease, indicate chronic kidney disease.Notes: Determination of stages one and two (with eGFR >59mL/min/1.73 m2) requires estimation of kidney damage for at least three months as defined by structural or functional abnormalities of the kidney, manifested by either:Pathological abnormalities or Markers of kidney damage (including abnormalities in the composition of the blood or urine or abnormalities in imaging tests). Lab Interpretation Abnormal (test code = 47222-8) [facility] (94994) (ALB,T.PRO,BILI T,BU/BC,ALT,AST,ALK PHOS)2019-03-08 11:03:00 Test Item Value Reference Range Interpretation Comments TOTAL BILI (test code = 6340484190) 1.2 mg/dL 0.1-1.1 H BILI UNCON (test code = 2765698022) 0.9 mg/dL 0.1-1.1 BILI CONJ (test code = 3300166487) 0.0 mg/dL 0-0.3 T PROTEIN (test code = 5800162652) 6.6 g/dL 6.3-8.2 ALBUMIN (test code = 2089297758) 3.3 g/dL 3.5-5 L ALK PHOS (test code = 9562898298) 78 U/L 34-122 ALT(SGPT) (test code = 9820239998) 33 U/L 9-51 AST(SGOT) (test code = 6889612109) 39 U/L 13-40 Lab Interpretation (test code = Abnormal 79421-5) [facility] WITH [id number] 10:27:00 Test Item Value Reference Range Interpretation Comments WBC (test code = See_Comment [Automated 9090-2) message] The sy stem which generated this result transmitted reference range : 4.30 - 11.10 10*3/?L. The reference range was not used to interpret this result as normal/abnormal . RBC (test code = See_Comment L [Automated 789-8) message] The sy stem which generated this result transmitted reference range : 3.93 - 5.25 10*6/?L. The reference range was not used to interpret this result as normal/abnormal . HGB (test code = 9.6 g/dL 11.6-15 L 718-7) HCT (test code = 29.7 % 35.7-45.2 L 4544-3) MCV (test code = 87.4 fL 80.6-95.5 787-2) MCH (test code = 28.2 pg 25.9-32.8 785-6) MCHC (test code = 32.3 g/dL 31.6-35.1 786-4) RDW-SD (test code = 50.3 fL 39-49.9 H 28528-4) RDW-CV (test code = 16.6 % 12-15.5 H 788-0) PLT (test code = See_Comment L [Automated 777-3) message] The sy stem which generated this result transmitted reference range : 166 - 358 10*3/ ?L. The reference r sharon was not used to interpret this result as normal/abnormal . MPV (test code = 10.7 fL 9.5-12.9 78192-5) NRBC/100 WBC (test See_Comment [Automat ed code = 5570138974) message] The system which generated this result transmitted reference range : 0.0 - 10.0 /100 WBCs. The refer ence range was not u sed to interpret th is result as normal/abnormal . NRBC x10^3 (test code <0.01 See_Comment [Auto mated = 6802314312) message] The s ystem which generated this result transmitted reference range : 10*3/?L. The reference range was not used to interpret this result as normal/abnormal . GRAN MAT (NEUT) % 59.5 % (test code = 770-8) IMM GRAN % (test code 0.40 % = 6448813516) LYMPH % (test code = 24.0 % 736-9) MONO % (test code = 11.4 % 5905-5) EOS % (test code = 4.0 % 713-8) BASO % (test code = 0.7 % 706-2) GRAN MAT x10^3(ANC) 3.25 10*3/uL 1.88-7.09 (test code = 5194874896) IMM GRAN x10^3 (test <0.03 0-0.06 code = 4900084212) LYMPH x10^3 (test code 1.31 10*3/uL 1.32-3.29 L = 731-0) MONO x10^3 (test code 0.62 10*3/uL 0.33-0.92 = 742-7) EOS x10^3 (test code = 0.22 10*3/uL 0.03-0.39 711-2) BASO x10^3 (test code 0.04 10*3/uL 0.01-0.07 = 704-7) Lab Interpretation Abnormal (test code = 76818-7) [facility] / [id number] 19:46:00 Test Item Value Reference Range Interpretation Comments WBC (test code = See_Comment L [Automated message] 6690-2) The system [employer] generated this result transmitted ref erence range: 4.30 - 1 1.10 10*3/?L. The reference range was not used to int erpret this result as normal/abnormal . RBC (test code = 789-8) See_Comment L [Au tomated message] The system [employer] generated this result transmitted ref erence range: 3.93 - 5 .25 10*6/?L. The reference range was not used to int erpret this result as normal/abnormal . HGB (test code = 718-7) 8.7 g/dL 11.6-15 L HCT (test code = 27.8 % 35.7-45.2 L 4544-3) MCH (test code = 785-6) 27.7 pg 25.9-32.8 MCV (test code = 787-2) 88.5 fL 80.6-95.5 MCHC (test code = 31.3 g/dL 31.6-35.1 L 786-4) PLT (test code = 777-3) See_Comment L [Au tomated message] The system [employer] generated this result transmitted ref erence range: 166 - 35 8 10*3/?L. The reference range was not used to int erpret this result as normal/abnormal . MPV (test code = 10.8 fL 9.5-12.9 34989-5) RDW-CV (test code = 17.2 % 12-15.5 H 788-0) RDW-SD (test code = 53.5 fL 39-49.9 H 36367-6) NRBC x10^3 (test code = <0.01 See_Comment [Au tomated message] 8438982512) The system [employer] generated this result transmitted ref erence range: 10*3/?L. The reference range was not used to int erpret this result as normal/abnormal . NRBC/100 WBC (test code See_Comment [Au tomated message] = 7223953683) The system [employer] generated this result transmitted ref erence range: 0.0 - 10 .0 /100 WBCs. The reference range was not used to int erpret this result as normal/abnormal . IPF % (test code = 1.5 % 1.3-7.7 Platelet count 1123462147) measured by fluorescence me thod. Lab Interpretation Abnormal (test code = 46718-9) [facility] [place]AM[place], [id number] 19:15:00 Test Item Value Reference Range Interpretation Comments AMMONIA (test code = 8237397295) 113 umol/L 9-33 H Lab Interpretation (test code = Abnormal 62289-0) [facility] TempleGLYCOSYLATED HEMOGLOBIN (A1C)2019-03-07 18:17:00 Test Item Value Reference Range Interpretation Comments HGB A1C (test code = 4548-4) 5.1 % 4-6 Lab Interpretation (test code = Normal 22074-1) [facility] METABOLIC PANEL (NA, K, CL, CO2, GLUCOSE, BUN, CREATININE, CA)2019-03-07 10:45:00 Test Item Value Reference Range Interpretation Comments NA (test code = 141 mmol/L 135-145 5310423030) K (test code = 4.1 mmol/L 3.5-5 9423580643) CL (test code = 115 mmol/L 98-108 H 5053561599) CO2 TOTAL (test code = 21 mmol/L 23-31 L 5355735999) AGAP (test code = 2-16 9871219499) BUN (test code = 34 mg/dL 7-23 H 9165094146) GLUCOSE (test code = 96 mg/dL 70-110 5704260556) CREATININE (test code = 1.68 mg/dL 0.5-1.04 H 9402860238) CALCIUM (test code = 8.5 mg/dL 8.6-10.6 L 7955999024) eGFR Calculation mL/min/1.73m2 (Non-) (test code = 9209220962) eGFR Calculation mL/min/1.73m2 () (test code = 7632119004) REJI (test code = REJI) Association of Glomerular Filtration Rate (GFR) and Staging of Kidney Disease*+ + + +| GFR (mL/min/1.73 m2)?| With Kidney Damage?|?Without Kidney Damage+ --------+ --------+ +|?>90?|?S tage one?|? Normal?+ ---------+ ---------+ +|?60-89? |?Stage two?|? Decreased GFR? + --+ --+ ------+|?30-59?|?Stage three?|? Stage three? + --+ --+ ------+|?15-29?|?Stage four? |? Stage four?+ -------+ -------+ +|?<15 (or dialysis)?|?Stage five? |? Stage five?+ -------+ -------+ +*Each stage assumes the associated GFR level has been in effect for at least three months.?Stages 1 to 5, with or without kidney disease, indicate chronic kidney disease.Notes: Determination of stages one and two (with eGFR >59mL/min/1.73 m2) requires estimation of kidney damage for at least three months as defined by structural or functional abnormalities of the kidney, manifested by either:Pathological abnormalities or Markers of kidney damage (including abnormalities in the composition of the blood or urine or abnormalities in imaging tests). Lab Interpretation Abnormal (test code = 30815-2) [facility] TempleProthrombin Time / [id number] 10:10:00 Test Item Value Reference Range Interpretation Comments PROTIME PATIENT (test See_Comment H [Auto mated message] code = 5964-2) The system [employer] generated this result transmitted ref erence range: 10.1 - 1 2.6 Seconds. The reference range was not used to int erpret this result as normal/abnormal . INR (test code = 6301-6) Nor mal INR <1.1; Warfarin Therap eutic range 2.0 to 3. 0 or 2.5 to 3.5, dep ending upon the indica tions. Lab Interpretation (test Abnormal code = 59522-6) [facility] Temple[facility] / [id number] 10:08:00 Test Item Value Reference Range Interpretation Comments WBC (test code = See_Comment [Automated message] 6690-2) The system M[employer] Okrug[employer] generated this result transmitted ref erence range: 4.30 - 1 1.10 10*3/?L. The reference range was not used to int erpret this result as normal/abnormal . RBC (test code = 789-8) See_Comment L [Au tomated message] The system [employer] generated this result transmitted ref erence range: 3.93 - 5 .25 10*6/?L. The reference range was not used to int erpret this result as normal/abnormal . HGB (test code = 718-7) 8.8 g/dL 11.6-15 L HCT (test code = 27.3 % 35.7-45.2 L 4544-3) MCH (test code = 785-6) 28.3 pg 25.9-32.8 MCV (test code = 787-2) 87.8 fL 80.6-95.5 MCHC (test code = 32.2 g/dL 31.6-35.1 786-4) PLT (test code = 777-3) See_Comment L [Au tomated message] The system [employer] generated this result transmitted ref erence range: 166 - 35 8 10*3/?L. The reference range was not used to int erpret this result as normal/abnormal . MPV (test code = 10.3 fL 9.5-12.9 79389-8) RDW-CV (test code = 17.2 % 12-15.5 H 788-0) RDW-SD (test code = 51.3 fL 39-49.9 H 67335-8) NRBC x10^3 (test code = <0.01 See_Comment [Au tomated message] 9256503370) The system [employer] generated this result transmitted ref erence range: 10*3/?L. The reference range was not used to int erpret this result as normal/abnormal . NRBC/100 WBC (test code See_Comment [Au tomated message] = 1499634439) The system [employer] generated this result transmitted ref erence range: 0.0 - 10 .0 /100 WBCs. The reference range was not used to int erpret this result as normal/abnormal . IPF % (test code = 2.1 % 1.3-7.7 Platelet count 0330429195) measured by fluorescence me thod. Lab Interpretation Abnormal (test code = 83699-3) [facility] Temple[facility] / [id number] 06:11:00 Test Item Value Reference Range Interpretation Comments WBC (test code = See_Comment L [Automated message] 6690-2) The system [employer] generated this result transmitted ref erence range: 4.30 - 1 1.10 10*3/?L. The reference range was not used to int erpret this result as normal/abnormal . RBC (test code = 789-8) See_Comment L [Au tomated message] The system [employer] generated this result transmitted ref erence range: 3.93 - 5 .25 10*6/?L. The reference range was not used to int erpret this result as normal/abnormal . HGB (test code = 718-7) 8.8 g/dL 11.6-15 L HCT (test code = 28.0 % 35.7-45.2 L 4544-3) MCH (test code = 785-6) 27.8 pg 25.9-32.8 MCV (test code = 787-2) 88.6 fL 80.6-95.5 MCHC (test code = 31.4 g/dL 31.6-35.1 L 786-4) PLT (test code = 777-3) See_Comment L [Au tomated message] The system [employer] generated this result transmitted ref erence range: 166 - 35 8 10*3/?L. The reference range was not used to int erpret this result as normal/abnormal . MPV (test code = 10.6 fL 9.5-12.9 79594-1) RDW-CV (test code = 17.1 % 12-15.5 H 788-0) RDW-SD (test code = 52.5 fL 39-49.9 H 05334-7) NRBC x10^3 (test code = <0.01 See_Comment [Au tomated message] 6833483898) The system [employer] generated this result transmitted ref erence range: 10*3/?L. The reference range was not used to int erpret this result as normal/abnormal . NRBC/100 WBC (test code See_Comment [Au tomated message] = 0589804887) The system [facility] generated this result transmitted ref erence range: 0.0 - 10 .0 /100 WBCs. The reference range was not used to int erpret this result as normal/abnormal . IPF % (test code = 1.6 % 1.3-7.7 Platelet count 2915523874) measured by fluorescence me thod. Lab Interpretation Abnormal (test code = 18992-0) [facility] TempleLactic Acid Whole [id number] 00:23:00 Test Item Value Reference Range Interpretation Comments LACTIC ACID (test code = 1.92 mmol/L 0.5-2.2 6534947522) Lab Interpretation (test code = Normal 94585-0) [facility] Temple[facility] / [id number] 20:24:00 Test Item Value Reference Range Interpretation Comments WBC (test code = See_Comment [Automated message] 6690-2) The system [employer] generated this result transmitted ref erence range: 4.30 - 1 1.10 10*3/?L. The reference range was not used to int erpret this result as normal/abnormal . RBC (test code = 789-8) See_Comment L [Au tomated message] The system [employer] generated this result transmitted ref erence range: 3.93 - 5 .25 10*6/?L. The reference range was not used to int erpret this result as normal/abnormal . HGB (test code = 718-7) 8.6 g/dL 11.6-15 L HCT (test code = 26.9 % 35.7-45.2 L 4544-3) MCH (test code = 785-6) 27.8 pg 25.9-32.8 MCV (test code = 787-2) 87.1 fL 80.6-95.5 MCHC (test code = 32.0 g/dL 31.6-35.1 786-4) PLT (test code = 777-3) See_Comment L [Au tomated message] The system [facility] generated this result transmitted ref erence range: 166 - 35 8 10*3/?L. The reference range was not used to int erpret this result as normal/abnormal . MPV (test code = 10.7 fL 9.5-12.9 02963-6) RDW-CV (test code = 17.1 % 12-15.5 H 788-0) RDW-SD (test code = 51.1 fL 39-49.9 H 75006-2) NRBC x10^3 (test code = <0.01 See_Comment [Au tomated message] 2863929425) The system [employer] generated this result transmitted ref erence range: 10*3/?L. The reference range was not used to int erpret this result as normal/abnormal . NRBC/100 WBC (test code See_Comment [Au tomated message] = 4344899934) The system [facility] generated this result transmitted ref erence range: 0.0 - 10 .0 /100 WBCs. The reference range was not used to int erpret this result as normal/abnormal . IPF % (test code = 1.9 % 1.3-7.7 Platelet count 8480779608) measured by fluorescence me thod. Lab Interpretation Abnormal (test code = 95872-4) [facility] TempleHEPATIC FUNCTION PANEL (94681) (ALB,T.PRO,BILI T,BU/BC,ALT,AST,ALK PHOS)2019-03-06 20:05:00 Test Item Value Reference Range Interpretation Comments TOTAL BILI (test code = 6830885389) 1.1 mg/dL 0.1-1.1 BILI UNCON (test code = 6373946491) 0.6 mg/dL 0.1-1.1 BILI CONJ (test code = 4861613341) 0.0 mg/dL 0-0.3 T PROTEIN (test code = 0163988994) 6.1 g/dL 6.3-8.2 L ALBUMIN (test code = 6436708151) 3.1 g/dL 3.5-5 L ALK PHOS (test code = 9105979445) 71 U/L 34-122 ALT(SGPT) (test code = 6227290890) 25 U/L 9-51 AST(SGOT) (test code = 9368348806) 36 U/L 13-40 Lab Interpretation (test code = Abnormal 94118-0) [facility] TemplePROTHROMBIN TIME / [id number] 19:58:00 Test Item Value Reference Range Interpretation Comments PROTIME PATIENT (test See_Comment H [Auto mated message] code = 5964-2) The system [employer] generated this result transmitted ref erence range: 10.1 - 1 2.6 Seconds. The reference range was not used to int erpret this result as normal/abnormal . INR (test code = 6301-6) Nor mal INR <1.1; Warfarin Therap eutic range 2.0 to 3. 0 or 2.5 to 3.5, dep ending upon the indica tions. Lab Interpretation (test Abnormal code = 44085-8) [facility] TempleLactic Acid Whole [id number] 19:45:00 Test Item Value Reference Range Interpretation Comments LACTIC ACID (test code = 4.22 mmol/L 0.5-2.2 H 5553553621) Lab Interpretation (test code = Abnormal 77988-6) [facility] TempleCT ABDOMEN PELVIS WO [id number] 12:52:38 Bilateral nephrolithiasis without hydronephrosis. Left renal lower pole 5 cm lesion, may represent a proteinaceous orhemorrhagic cyst, Bosniak 2. Right ovarian 4.9 cm simple cyst. Marsha Torres MD., have reviewed this study and agree with theabove report.EXAM: CT ABDOMEN AND PELVIS WITHOUT C ONTRAST HISTORY: 58-year-old female with abdominal pain. COMPARISON: CT abdomen and pelvis on 11/10/2018 DOSE: 460 mGy cm total exam DLP TECHNIQUE AND FINDINGS: Contiguous axial imaging from the level of the lungbases through the pubic symphysis was performed without the administrationof intravenous Omnipaque contrast. Coronal and sagittal reconstructionswere obtained.?Auto mA and/or iterative reconstruction were used to reduceradiation dose. FINDINGS: LOWER THORAX: The lungs bases are clear. Mild dependent nodular pleuralthickening. No effusion or pneumothorax. No cardiomegaly. Scattered leftcoronary atherosclerosis is present. LIVER: Cirrhotic morphology with TIPS. No focal hepatic lesions. GALLBLADDER AND BILIARY TREE: No biliary ductal dilation.?Postsurgicalchanges of cholecystectomy. SPLEEN: No splenomegaly. PANCREAS: No ductal dilation or masses. ADRENAL GLANDS: No adrenal nodules. KIDNEYS:Punctate 2 mm calcifications in the right middle and lower calycesare unchanged. A 3 mm calcification in the left lower pole is alsosuspicious for a proximal calyceal stone. No hydronephrosis. A 4.1 x 5.0 x4.1 cm well- circumscribed hypodensity demonstrates internal density of 26HU. PERITONEUM AND RETROPERITONEUM: No free air or fluid. LYMPH NODES: No lymphadenopathy. GI TRACT: Surgical sutures are identified adjacent to the cecum. Nodilation or wall thickening. PELVIS/BLADDER: The bladder and uterusare normal. A right ovarian cystmeasures 4.9 x 2.5 x 3.1 cm. The left ovary is unremarkable. VESSELS: Normal caliber with mild scattered infrarenal aortoiliacatherosclerosis. BONES AND SOFT TISSUES: Nosuspicious lytic or sclerotic bony lesions.Degenerative changes are greatest at L2-L3 where there isnotableintervertebral disc space narrowing and sclerotic endplate changes. Subtlegrade 1 retrolisthesis of L2 on L3, L3 on L4, and L4 on L5. The vertebralbodies are normal in height and otherwise normal alignment. Mamb, Radiant Results Inft User - 03/06/2019 7:52 AM CDTEXAM: CT ABDOMEN AND PELVIS WITHOUT CONTRASTHISTORY: 58-year-old female with abdominal pain.COMPARISON: CT abdomen and pelvis on 11/10/2018 DOSE: 460 mGy cm total exam DLPTECHNIQUE AND FINDINGS: Contiguous axial imaging from the level of the lungbases through the pubic symphysis was performed without the administrationof intravenous Omnipaque contrast. Coronal and sagittal reconstructionswere obtained. Auto mA and/or iterative reconstruction were used to reduceradiation dose.FINDINGS:LOWER THORAX: The lungs bases are clear. Mild dependent nodular pleuralthickening. No effusion or pneumothorax. No cardiomegaly. Scattered leftcoronary atherosclerosis is present.LIVER: Cirrhotic morphology with TIPS. No focal hepatic lesions.GALLBLADDER AND BILIARY TREE: No biliary ductal dilation. Postsurgicalchanges of cholecystectomy.SPLEEN: No splenomegaly.PANCREAS: No ductal dilation or masses.ADRENAL GLANDS: No adrenal nodules.KIDNEYS: Punctate 2 mm calcifications in the right middle and lower calycesare unchanged. A 3 mm calcification in the left lower pole is alsosuspicious for a proximal calyceal stone. No hydronephrosis. A 4.1 x 5.0 x4 .1 cm well-circumscribed hypodensity demonstrates internal density of 26HU.PERITONEUM AND RETROPERITONEUM: No free air or fluid.LYMPH NODES: No lymphadenopathy.GI TRACT: Surgical sutures are identifiedadjacent to the cecum. Nodilation or wall thickening.PELVIS/BLADDER: The bladder and uterus are normal. A right ovarian cystmeasures 4.9 x 2.5 x 3.1 cm. The left ovary is unremarkable.VESSELS: Normal caliber with mild scattered infrarenal aortoiliacatherosclerosis.BONES AND SOFT TISSUES: No suspiciouslytic or sclerotic bony lesions.Degenerative changes are greatest at L2-L3 where there is notableintervertebral disc space narrowing and sclerotic endplate changes. Subtlegrade 1 retrolisthesis of L2 on L3, L3 on L4, and L4 on L5. The vertebralbodies are normal in height and otherwise normal alignment. IMPRESSIONBilateral nephrolithiasis without hydronephrosis.Left renal lower pole 5 cm lesion, may represent a proteinaceous orhemorrhagic cyst, Bosniak 2.Right ovarian 4.9 cm simple cyst.ISkye MD., have reviewed this study and agree with theabove report.[facility] TempleAMMONIA, [id number] 08:32:00 Test Item Value Reference Range Interpretation Comments AMMONIA (test code = 158 umol/L 9-33 H Slight hemolysis 1562290291) Lab Interpretation (test Abnormal code = 22822-4) [facility] TempleType and Screen - ONCE [id number] 07:42:21 Test Item Value Reference Range Interpretation Comments ABO & RH (test code A Positive Performe d at [facility] = 20) Laboratory Serv [facility] [address] [place] [id number] Free: [phone] A No. [id number] IAT (test code = Negative Performed a t [facility] 1185) Laboratory Serv [facility] [address] [place] [id number] Free: [phone] A No. [id number] [facility] TempleaPTT2019-07-26 06:52:00 Test Item Value Reference Range Interpretation Comments APTT Patient (test See_Comment [Automat ed code = 3173-2) message] The system which generated this result transmitted reference range : 23 - 38 Seconds . The reference range was not used to interpr et this result as normal/abnormal . REJI (test code = REJI) The [facility] patient population mean normal value for aPTT is 30 seconds. Lab Interpretation Normal (test code = 26351-5) [facility] TempleUrinalysis2019-07-26 06:51:00 Test Item Value Reference Range Interpretation Comments APPEARANCE (test code Slightly Cloudy Clear A = 3665927631) COLOR (test code = Yellow Yellow 5628742414) PH (test code = 4.8-8.0 0754032081) SP GRAVITY (test code 1.003-1.030 = 7227786819) GLU U QUAL (test code Negative Negative = 4698550928) BLOOD (test code = Moderate Negative A 5163786815) KETONES (test code = Negative Negative 6015494917) PROTEIN (test code = Negative Negative 2887-8) UROBILIN (test code = 0.2 mg/dL See_Comment [Auto mated 7824367947) message] The system which generated this result transmit barron reference range : 0-1.0 mg/dL. Th e reference range was not used to interpret this result as normal/abnormal . BILIRUBIN (test code Negative Negative = 6709590529) NITRITE (test code = Negative Negative 5792861621) LEUK BETTINA (test code Negative Negative = 9986935152) RBC/HPF (test code = See_Comment H [Autom ated 6674789793) message] The system which generated this result transmit barron reference range : 0 - 3 HPF. The reference range was not used to interpret this result as normal/abnormal . WBC/HPF (test code = See_Comment H [Autom ated 1000164277) message] The system which generated this result transmit barron reference range : 0 - 5 HPF. The reference range was not used to interpret this result as normal/abnormal . BACTERIA (test code = Moderate Negative A 1237035867) SQ EPITH (test code = >50 HPF 3111499027) Lab Interpretation Abnormal (test code = 40597-6) [facility] TempleComplete Metabolic [id number] 06:50:00 Test Item Value Reference Range Interpretation Comments NA (test code = 141 mmol/L 135-145 8290361137) K (test code = 4.4 mmol/L 3.5-5 0627022553) CL (test code = 111 mmol/L 98-108 H 7429858540) CO2 TOTAL (test code = 20 mmol/L 23-31 L 7459640336) AGAP (test code = 2-16 2005295748) BUN (test code = 50 mg/dL 7-23 H 4721170497) GLUCOSE (test code = 119 mg/dL 70-110 H 3335053109) CREATININE (test code = 2.40 mg/dL 0.5-1.04 H 7410456337) TOTAL BILI (test code = 1.4 mg/dL 0.1-1.1 H 4587594960) CALCIUM (test code = 9.3 mg/dL 8.6-10.6 4533832744) T PROTEIN (test code = 7.6 g/dL 6.3-8.2 8376200756) ALBUMIN (test code = 4.1 g/dL 3.5-5 3176957162) ALK PHOS (test code = 93 U/L 34-122 5289386012) ALT(SGPT) (test code = 25 U/L 9-51 5767891625) AST(SGOT) (test code = 38 U/L 13-40 2881778313) eGFR Calculation mL/min/1.73m2 (Non-) (test code = 7345764026) eGFR Calculation mL/min/1.73m2 () (test code = 0246712815) REJI (test code = REJI) Association of Glomerular Filtration Rate (GFR) and Staging of Kidney Disease*+ + + +| GFR (mL/min/1.73 m2)?| With Kidney Damage?|?Without Kidney Damage+ --------+ --------+ +|?>90?|?S austine one?|? Normal?+ ---------+ ---------+ +|?60-89? |?Stage two?|? Decreased GFR? + --+ --+ ------+|?30-59?|?Stage three?|? Stage three? + --+ --+ ------+|?15-29?|?Stage four? |? Stage four?+ -------+ -------+ +|?<15 (or dialysis)?|?Stage five? |? Stage five?+ -------+ -------+ +*Each stage assumes the associated GFR level has been in effect for at least three months.?Stages 1 to 5, with or without kidney disease, indicate chronic kidney disease.Notes: Determination of stages one and two (with eGFR >59mL/min/1.73 m2) requires estimation of kidney damage for at least three months as defined by structural or functional abnormalities of the kidney, manifested by either:Pathological abnormalities or Markers of kidney damage (including abnormalities in the composition of the blood or urine or abnormalities in imaging tests). Lab Interpretation Abnormal (test code = 26992-7) [facility] TempleLipase, [id number] 06:50:00 Test Item Value Reference Range Interpretation Comments LIPASE (test code = 4882105722) 186 U/L 0-220 Lab Interpretation (test code = Normal 81185-6) [facility] TemplePROTHROMBIN TIME / [id number] 06:49:00 Test Item Value Reference Range Interpretation Comments PROTIME PATIENT (test See_Comment [Auto mated message] code = 5964-2) The system wh ich generated this result transmitted ref erence range: 12.0 - 1 4.7 Seconds. The re ference range was not u sed to interpret this result as normal/abnor mal. INR (test code = 6301-6) Nor mal INR <1.1; Warfarin Therap eutic range 2.0 to 3. 0 or 2.5 to 3.5, dep ending upon the indica tions. Lab Interpretation (test Normal code = 10939-5) [facility] WITH [id number] 06:31:00 Test Item Value Reference Range Interpretation Comments WBC (test code = See_Comment [Automated 5490-2) message] The sy stem which generated this result transmitted reference range : 4.30 - 11.10 10*3/?L. The reference range was not used to interpret this result as normal/abnormal . RBC (test code = See_Comment L [Automated 789-8) message] The sy stem which generated this result transmitted reference range : 3.93 - 5.25 10*6/?L. The reference range was not used to interpret this result as normal/abnormal . HGB (test code = 10.2 g/dL 11.6-15 L 718-7) HCT (test code = 30.4 % 35.7-45.2 L 4544-3) MCV (test code = 85.4 fL 80.6-95.5 787-2) MCH (test code = 28.7 pg 25.9-32.8 785-6) MCHC (test code = 33.6 g/dL 31.6-35.1 786-4) RDW-SD (test code = 49.4 fL 39-49.9 68226-7) RDW-CV (test code = 16.7 % 12-15.5 H 788-0) PLT (test code = See_Comment L [Automated 777-3) message] The sy stem which generated this result transmitted reference range : 166 - 358 10*3/ ?L. The reference r sharon was not used to interpret this result as normal/abnormal . MPV (test code = 11.2 fL 9.5-12.9 64595-3) NRBC/100 WBC (test See_Comment [Automat ed code = 0769285293) message] The system which generated this result transmitted reference range : 0.0 - 10.0 /100 WBCs. The refer ence range was not u sed to interpret th is result as normal/abnormal . NRBC x10^3 (test code <0.01 See_Comment [Auto mated = 0206159665) message] The s ystem which generated this result transmitted reference range : 10*3/?L. The reference range was not used to interpret this result as normal/abnormal . GRAN MAT (NEUT) % 65.7 % (test code = 770-8) IMM GRAN % (test code 0.40 % = 5694226702) LYMPH % (test code = 21.0 % 736-9) MONO % (test code = 9.1 % 5905-5) EOS % (test code = 3.3 % 713-8) BASO % (test code = 0.5 % 706-2) GRAN MAT x10^3(ANC) 5.41 10*3/uL 1.88-7.09 (test code = 3457698959) IMM GRAN x10^3 (test 0.03 10*3/uL 0-0.06 code = 6633674885) LYMPH x10^3 (test code 1.73 10*3/uL 1.32-3.29 = 731-0) MONO x10^3 (test code 0.75 10*3/uL 0.33-0.92 = 742-7) EOS x10^3 (test code = 0.27 10*3/uL 0.03-0.39 711-2) BASO x10^3 (test code 0.04 10*3/uL 0.01-0.07 = 704-7) Lab Interpretation Abnormal (test code = 20873-4) [facility]"
--- NOTE | 2021-07-28 17:46 | RAD REPORT ---
EXAM DESCRIPTION: RAD - Chest Single View - 07/28/2021 5:41 pm CLINICAL HISTORY: Generalized pain COMPARISON: <Comparisons> FINDINGS: Lines: None. Lungs: No evidence of edema or pneumonia. Pleural: No significant pleural effusions or pneumothorax. Cardiac: The heart size is within normal limits. Bones: No acute fractures. Other: IMPRESSION: No acute cardiopulmonary disease.
[2021-07-28] MEDS ORDERED: MORPHINE 4 MG/ML SYR ONE (17:57)
[2021-07-28] MEDS ORDERED: ONDANSETRON 4 MG/2 ML VIAL ONE (17:58)
[2021-07-28 18:25] LABS: Protime INR 1.49
[2021-07-28 18:28] LABS: Absolute Lymphocytes (CBC) 1.2 K/uL (0.7-4.9); Basophils % 0.7 % (0-1.3); Hematocrit 28.2 % (36.0-45.0); MPV 8.4 fL (7.6-11.3); RBC Red Blood Cell Count 2.96 M/uL (3.86-4.86)
[2021-07-28] MEDS ORDERED: HYDROMORPHONE HCL 1 MG/ML INJ ONE (18:55)
[2021-07-28 18:58] LABS: ALT/SGPT 25 U/L (12-78); AST/SGOT 30 U/L (15-37); Albumin 2.6 g/dL (3.4-5.0); Alkaline Phosphatase 76 U/L (45-117); BUN Blood Urea Nitrogen 13 mg/dL (7-18); Bicarbonate 21 mmol/L (21-32); Bilirubin Direct 0.7 mg/dL (0-0.2); Bilirubin Total 2.3 mg/dL (0.2-1.0); Glucose Level 83 mg/dL (74-106); Magnesium 2.1 mg/dL (1.8-2.4); NT PRO-BNP 90 pg/mL (<125); Potassium 3.8 mmol/L (3.5-5.1); Protein, Total 6.2 g/dL (6.4-8.2); Sodium Level 145 mmol/L (136-145); Troponin (Emerg Dept Use Only) < 0.02 ng/mL (0.0-0.045)
--- NOTE | 2021-07-28 18:59 | RAD REPORT ---
EXAM DESCRIPTION: CT - Spine Lumbar Wo Con - 07/28/2021 6:33 pm CLINICAL HISTORY: Radiculopathy. PAIN COMPARISON: No comparisonsAbdomen Pelvis Wo Contrast dated 05/18/2021 TECHNIQUE: Axial noncontrast CT imaging of the lumbar spine was performed with coronal and sagittal re-formatted images. All CT scans are performed using dose optimization technique as appropriate and may include automated exposure control or mA/KV adjustment according to patient size. FINDINGS: No acute lumbar spine fracture seen. Trace anterolisthesis of L4 on L5. Endplate degenerat chago changes and Schmorl's nodes are present at the L2-3 level. Paraspinal tissues are normal in thickness. No paraspinal abscess or hematoma seen. Left renal cyst. Atherosclerosis. Appendectomy. Intervertebral disc disease assessment is inherently limited by CT. Within these limitations, no high -grade canal stenosis suspected. IMPRESSION: No lumbar spine fracture identified. Consider MRI follow-up for assessment of disc disease if clinically desired.
[2021-07-28 19:06] LABS: Platelet Estimate DECR; White Blood Cell Scan OK (OK)
[2021-07-28 19:07] LABS: Blood Morphology Comment NOT SEEN (NOT SEEN)
--- NOTE | 2021-07-28 21:17 | ER ---
Nurse's Notes [facility] Name: Bella Barron Age: 61 yrs Sex: Female : 1960 Arrival Date: 07/28/2021 Time: 15:39 Bed 20 Private MD: Fernando Díaz Diagnosis: Low back pain;Fall on same level, unspecified;Hepatic Encephalopathy Presentation: 07/28 15:56 Chief complaint: Patient states: "It feels like I have been body slammed." Pt reports ld1 mid back pain beginning this morning when I woke up. Pt denies injuring back, "just woke up with it like this.". Coronavirus screen: At this time, the client does not indicate any symptoms associated with coronavirus-19. Ebola Screen: No symptoms or risks identified at this time. Initial Sepsis Screen: Does the patient meet any 2 criteria? No. Patient's initial sepsis screen is negative. Does the patient have a suspected source of infection? No. Patient's initial sepsis screen is negative. Risk Assessment: Do you want to hurt yourself or someone else? Patient reports no desire to harm self or others. Onset of symptoms was July 28, 2021. 15:56 Method Of Arrival: Wheelchair ld1 15:56 Acuity: OLEG 3 ld1 Triage Assessment: 15:58 General: Appears in no apparent distress. uncomfortable, Behavior is calm, cooperative. ld1 Pain: Complains of pain in back Pain does not radiate. Pain currently is 10 out of 10 on a pain scale. Quality of pain is described as heavy, pressure, Pain began suddenly, Is continuous. EENT: No signs and/or symptoms were reported regarding the EENT system. Neuro: Level of Consciousness is awake, alert, obeys commands, Oriented to person, place, time, situation, Appropriate for age. Cardiovascular: Capillary refill < 3 seconds Patient's skin is warm and dry. Respiratory: Airway is patent Respiratory effort is even, unlabored, Respiratory pattern is regular, symmetrical. GI: Abdomen is round non-distended, obese. : No signs and/or symptoms were reported regarding the genitourinary system. Derm: No signs and/or symptoms reported regarding the dermatologic system. Musculoskeletal: Range of motion: intact in all extremities, Reports pain in back. Historical: - Allergies: 15:58 Iodine; ld1 15:58 Phenergan; ld1 15:58 Rocephin; ld1 - Home Meds: 15:58 Allopurinol Oral [Active]; Amoxicillin Oral [Active]; benzodiazipine [Active]; ld1 Carbidopa-Levodopa Oral [Active]; escitalopram oxalate Oral [Active]; quitapine [Active]; - PMHx: 15:58 Cirrhosis; Colitis; Crohn's; Depression; Liver disease; needs kidney and liver ld1 transplant; ocd; - PSHx: 15:58 Cholecystectomy; ld1 - Immunization history:: Adult Immunizations up to date, Client reports receiving the 2nd dose of the Covid vaccine. - Social history:: Smoking status: Patient denies any tobacco usage or history of. Patient/guardian denies using alcohol, street drugs. Screenin:04 Abuse screen: Denies threats or abuse. Denies injuries from another. Nutritional ld1 screening: No deficits noted. Tuberculosis screening: No symptoms or risk factors identified. Fall Risk None identified. Assessment: 17:04 Reassessment: See triage assessment. Neuro: Level of Consciousness is awake, alert, ld1 obeys commands, Oriented to person, place, time, situation, Appropriate for age. 22:39 Reassessment: Patient appears in no apparent distress at this time. No changes from ld1 previously documented assessment. Patient and/or family updated on plan of care and expected duration. Pain level reassessed. Patient is alert, oriented x 3, equal unlabored respirations, skin warm/dry/pink. Vital Signs: 15:56 BP 102 / 74; Pulse 79; Resp 18; Temp 97.8(TE); Pulse Ox 100% on R/A; Weight 85.73 kg; ld1 Height 4 ft. 11 in. (149.86 cm); Pain 10/10; 17:09 BP 95 / 67; Pulse 69; Resp 18; Pulse Ox 100% on R/A; ld1 18:59 BP 109 / 69; Pulse 65; Resp 10; Pulse Ox 100% on R/A; ld1 20:56 BP 109 / 54; Pulse 71; Resp 10; Pulse Ox 96% on R/A; ld1 22:39 BP 97 / 70; Pulse 67; Resp 7; Pulse Ox 98% on R/A; ld1 15:56 Body Mass Index 38.17 (85.73 kg, 149.86 cm) ld1 ED Course: 15:39 Patient arrived in ED. mr 15:39 Fernando Díaz DO is Private Physician. mr 15:58 Triage completed. ld1 15:58 Arm band placed on right wrist. ld1 17:04 Mirian Pena, RN is Primary Nurse. ld1 17:04 Patient has correct armband on for positive identification. Bed in low position. Call ld1 light in reach. Side rails up X2. engine monitor on. Pulse ox on. NIBP on. Door closed. Noise minimized. Warm blanket given. 17:04 No provider procedures requiring assistance completed. ld1 17:14 Yves French MD is Attending Physician. kdr 17:41 XRAY Chest (1 view) In Process Unspecified. EDMS 18:05 Initial lab(s) drawn, by nm, sent to lab. Inserted saline lock: 22 gauge in left dh3 antecubital area, using aseptic technique. Blood collected. 18:33 CT Lumbar Spine Wo Con In Process Unspecified. EDMS 19:06 Attending Physician role handed off by Yves French MD [facility] 19:06 Ashok Romano MD is Attending Physician. [facility] 21:15 Calos Garduno is Hospitalizing Provider. [facility] 07/29 03:13 Primary Nurse role handed off by Mirian Pena, AMARILIS cs9 07:04 Patient admitted, IV remains in place. lp1 Administered Medications: 07/28 18:12 Drug: morphine 4 mg Route: IVP; Site: left antecubital; ld1 18:15 Follow up: Response: No adverse reaction ld1 18:12 Drug: Zofran (Ondansetron) 4 mg Route: IVP; Site: left antecubital; ld1 18:15 Follow up: Response: No adverse reaction ld1 18:58 Drug: Dilaudid (HYDROmorphone) 1 mg Route: IVP; Site: left antecubital; ld1 18:59 Follow up: Response: No adverse reaction ld1 21:34 Drug: Lactulose 20 grams Volume: 30 ml; Route: PO; ld1 21:34 Follow up: Response: No adverse reaction ld1 Outcome: 21:17 Decision to Hospitalize by Provider. [facility] 07/29 07:04 Admitted to ER Hold. Please see [facility] for further documentation. lp1 Condition: stable Instructed on the need for admit. 13:24 Patient left the ED. eb Signatures: Dispatcher [employer] EDMS Yves French MD MD kdr Rivera, Mary mr Lucia Rogers, RN RN lp1 Keyla Sheth [facility] Nellie Betancur Maurice, MD MD [facility] Mirian Pena RN RN 1 Caro Dos Santos [facility] Corrections: (The following items were deleted from the chart) 07/28 19:05 18:59 Pulse 65bpm; Resp 10bpm; Pulse Ox 100% RA; ld1 ld1 21:39 21:34 CORONAVIRUS+MR.LAB.CARENZ drawn and sent. [facility] EDCA
--- NOTE | 2021-07-28 21:17 | EDPHYS ---
Physician Documentation [facility] Name: Bella Barron Age: 61 yrs Sex: Female : 1960 Arrival Date: 07/28/2021 Time: 15:39 Bed 20 Private MD: Fernando Díaz ED Physician Ashok Romano HPI: 07/28 18:24 This 61 yrs old Female presents to ER via Wheelchair with complaints of Back Pain. kdr 18:24 The patient presents with pain that is acute. The symptoms are located in the low back. kdr Onset: The symptoms/episode began/occurred suddenly, just prior to arrival. The pain does not radiate. Associated signs and symptoms: Pertinent positives: none Pertinent negatives: abdominal pain, constipation, dysuria, fever, headache, hematuria, incontinence, nausea, numbness, tingling, urinary retention, vomiting, weakness. The problem was sustained during a fall, Patient was try to make her way into the bathroom to use the toilet. Unfortunately she slipped and fell on her low back. She did hit her head however there was no loss of consciousness. Modifying factors: The patient symptoms are alleviated by nothing, the patient symptoms are aggravated by any movement, bending. Severity of symptoms: At their worst the symptoms were moderate, in the emergency department the symptoms are unchanged. The patient has not experienced similar symptoms in the past. The patient has been recently seen by a physician: The patient is on the liver transplant list and periodically is seen for general health related issues. She frequently gets admitted. Historical: - Allergies: 15:58 Iodine; ld1 15:58 Phenergan; ld1 15:58 Rocephin; ld1 - Home Meds: 15:58 Allopurinol Oral [Active]; Amoxicillin Oral [Active]; benzodiazipine [Active]; ld1 Carbidopa-Levodopa Oral [Active]; escitalopram oxalate Oral [Active]; quitapine [Active]; - PMHx: 15:58 Cirrhosis; Colitis; Crohn's; Depression; Liver disease; needs kidney and liver ld1 transplant; ocd; - PSHx: 15:58 Cholecystectomy; ld1 - Immunization history:: Adult Immunizations up to date, Client reports receiving the 2nd dose of the Covid vaccine. - Social history:: Smoking status: Patient denies any tobacco usage or history of. Patient/guardian denies using alcohol, street drugs. ROS: 18:26 Constitutional: Negative for fever, chills, and weight loss, Eyes: Negative for injury, kdr pain, redness, and discharge, ENT: Negative for injury, pain, and discharge, Neck: Negative for injury, pain, and swelling, Cardiovascular: Negative for chest pain, palpitations, and edema, Respiratory: Negative for shortness of breath, cough, wheezing, and pleuritic chest pain, Abdomen/GI: Negative for abdominal pain, nausea, vomiting, diarrhea, and constipation, : Negative for injury, bleeding, discharge, and swelling, MS/Extremity: Negative for injury and deformity, Skin: Negative for injury, rash, and discoloration, Neuro: Negative for headache, weakness, numbness, tingling, and seizure activity. Psych: Negative for depression, anxiety, suicide ideation, homicidal ideation, and hallucinations, Allergy/Immunology: Negative for hives, rash, and allergies, Endocrine: Negative for neck swelling, polydipsia, polyuria, polyphagia, and marked weight changes, Hematologic/Lymphatic: Negative for swollen nodes, abnormal bleeding, and unusual bruising. 18:26 Back: Positive for injury or acute deformity, decreased range of motion, pain at rest, pain with movement, of the lumbar area, Negative for radiated pain. Exam: 18:27 Constitutional: This is a well developed, well nourished patient who is awake, alert, kdr and in no acute distress. Head/Face: Normocephalic, atraumatic. Neck: Trachea midline, no thyromegaly or masses palpated, and no cervical lymphadenopathy. Supple, full range of motion without nuchal rigidity, or vertebral point tenderness. No Meningismus. Chest/axilla: Normal chest wall appearance and motion. Nontender with no deformity. No lesions are appreciated. Cardiovascular: Regular rate and rhythm with a normal S1 and S2. No gallops, murmurs, or rubs. Normal PMI, no JVD. No pulse deficits. Respiratory: Lungs have equal breath sounds bilaterally, clear to auscultation and percussion. No rales, rhonchi or wheezes noted. No increased work of breathing, no retractions or nasal flaring. Abdomen/GI: Soft, non-tender, with normal bowel sounds. No distension or tympany. No guarding or rebound. No evidence of tenderness throughout. 18:27 Back: ROM is painful, with all movement, normal spinal alignment noted, CVA tenderness, is absent, vertebral tenderness, is appreciated at L2, L3 and lumbar spine. Vital Signs: 15:56 BP 102 / 74; Pulse 79; Resp 18; Temp 97.8(TE); Pulse Ox 100% on R/A; Weight 85.73 kg; ld1 Height 4 ft. 11 in. (149.86 cm); Pain 10/10; 17:09 BP 95 / 67; Pulse 69; Resp 18; Pulse Ox 100% on R/A; ld1 18:59 BP 109 / 69; Pulse 65; Resp 10; Pulse Ox 100% on R/A; ld1 20:56 BP 109 / 54; Pulse 71; Resp 10; Pulse Ox 96% on R/A; ld1 22:39 BP 97 / 70; Pulse 67; Resp 7; Pulse Ox 98% on R/A; ld1 15:56 Body Mass Index 38.17 (85.73 kg, 149.86 cm) ld1 MDM: 21:14 Differential diagnosis: arthritis, Cholelithiasis Fatigue Fracture Osteoarthritis mh7 Osteoporosis vertebral fracture. Data reviewed: vital signs, nurses notes, lab test result(s), CBC, electrolytes, radiologic studies, CT scan, plain films. Data interpreted: Pulse oximetry: on room air is 96 %. Interpretation: normal. Counseling: I had a detailed discussion with the patient and/or guardian regarding: the historical points, exam findings, and any diagnostic results supporting the discharge/admit diagnosis, lab results, radiology results, the need for further work-up and treatment in the hospital. Response to treatment: the patient's symptoms have mildly improved after treatment. 21:17 Patient medically screened. [facility] 07/28 17:19 Order name: Basic Metabolic Panel; Complete Time: 19: kdr 07/28 17:19 Order name: CBC with Diff; Complete Time: 19: kdr 07/28 17:19 Order name: LFT's; Complete Time: 19:11 kdr 07/28 17:19 Order name: Magnesium; Complete Time: 19:11 kdr 07/28 17:19 Order name: NT PRO-BNP; Complete Time: 19:11 kdr 07/28 17:19 Order name: PT-INR; Complete Time: 19:11 kdr 07/28 17:19 Order name: Troponin (emerg Dept Use Only); Complete Time: 19:11 kdr 07/28 19:06 Order name: CBC Smear Scan; Complete Time: 19:11 EDMS 07/28 19:34 Order name: Acetaminophen [facility] 07/28 19:34 Order name: Salicylate [facility] 07/28 19:34 Order name: AMMONIA; Complete Time: 21:09 [facility] 07/28 19:34 Order name: UDS [facility] 07/28 21:39 Order name: SARS-COV-2 RT PCR EDSD 07/28 17:19 Order name: XRAY Chest (1 view); Complete Time: 19:11 kdr 07/28 17:19 Order name: EKG; Complete Time: 17:19 kdr 07/28 17:19 Order name: Cardiac monitoring; Complete Time: 17:23 kdr 07/28 17:19 Order name: EKG - Nurse/Tech; Complete Time: 18:12 kdr 07/28 17:19 Order name: IV Saline Lock; Complete Time: 17:34 kdr 07/28 17:19 Order name: Labs collected and sent; Complete Time: 18:12 kdr 07/28 17:55 Order name: CT Lumbar Spine Wo Con; Complete Time: 19:11 kdr 07/29 05:43 Order name: CBC with Automated Diff EDSD 07/29 05:55 Order name: Ammonia EDSD 07/29 05:58 Order name: Comprehensive Metabolic Panel EDSD 07/29 05:58 Order name: Phosphorus EDSD 07/29 05:58 Order name: Magnesium EDMS 07/28 17:19 Order name: O2 Per Protocol; Complete Time: 17:23 kdr 07/28 17:19 Order name: O2 Sat Monitoring; Complete Time: 17:23 kdr Administered Medications: 18:12 Drug: morphine 4 mg Route: IVP; Site: left antecubital; ld1 18:15 Follow up: Response: No adverse reaction ld1 18:12 Drug: Zofran (Ondansetron) 4 mg Route: IVP; Site: left antecubital; ld1 18:15 Follow up: Response: No adverse reaction ld1 18:58 Drug: Dilaudid (HYDROmorphone) 1 mg Route: IVP; Site: left antecubital; ld1 18:59 Follow up: Response: No adverse reaction ld1 21:34 Drug: Lactulose 20 grams Volume: 30 ml; Route: PO; ld1 21:34 Follow up: Response: No adverse reaction ld1 Disposition Summary: 07/28/21 21:17 Hospitalization Ordered Hospitalization Status: Inpatient Admission 7 Provider: Calos Garduno Condition: Stable [facility] Problem: new mh7 Symptoms: have improved mh7 Bed/Room Type: Standard [facility] Location: [facility] ER HOLD(07/28/21 22:10) Room Assignment: ERHOLD-(07/28/21 22:10) mw Diagnosis - Low back pain mh7 - Fall on same level, unspecified mh7 - Hepatic Encephalopathy 7 Forms: - Medication Reconciliation Form mh7 - SBAR form 7 Signatures: Dispatcher [employer] EDMS Chrissie Silva RN RN Yves French MD MD [facility] Ashok Romano MD MD [facility] Mirian Pena RN RN ld1 Corrections: (The following items were deleted from the chart) 21:39 21:19 CORONAVIRUS+MR.LAB.BRZ ordered. EDSD EDMS 22:10 21:17 Telemetry/MedSurg (Inpatient) 7 22:10 21:17 [facility]
[2021-07-28] MEDS ORDERED: LACTULOSE 20 GM/30 ML UCUP ONE (21:22)
--- NOTE | 2021-07-28 22:18 | P.HP ---
Certification for Inpatient Patient admitted to: Observation With expected LOS: <2 Midnights Patient will require the following post-hospital care: None Practitioner: I am a practitioner with admitting privileges, knowledge of patient current condition, hospital course, and medical plan of care. Services: Services provided to patient in accordance with Admission requirements found in Title 42 Section 412.3 of the Code of Federal Regulations Patient History Date of Service: 07/28/21 Reason for admission: fall, hepatic encephalopathy History of Present Illness: Ms. Barron is a 61 yo F with cirrhosis, Crohn's, anemia of chronic disease who presents for back pain beginning one week ago. She was trying to get to the bathroom but was not able to make it. She slipped and fell onto the bathroom floor. She has had lower back pain since then, worse with walking. She has been taking tramadol and gabapentin for the pain without relief. She falls quite a b it due to her elevated ammonia levels, but usually the pain improves. Denies systemic symptoms. Ammonia level 80. CT Lumbar IMPRESSION: No lumbar spine fracture identified. Consider MRI follow-up for assessment of disc disease if clinically desired. Allergies ceftriaxone [From Rocephin] Allergy (Verified 10/10/20 20:17) Anaphylaxis iodine Allergy (Verified 10/10/20 20:17) Anaphylaxis promethazine [From Phenergan] Allergy (Verified 10/10/20 20:17) Itching Fish Allergy (Uncoded 10/10/20 20:17) Rash Home Medications: Benztropine Mesylate 0.5 mg PO BID 04/10/20 Quetiapine Fumarate [Seroquel] 200 mg PO BEDTIME 04/10/20 Rifaximin [Xifaxan] 550 mg PO BID 04/10/20 Gabapentin 300 mg PO BID 12/16/20 Primidone 25 mg PO BEDTIME 12/16/20 Spironolactone [Aldactone] 50 mg PO DAILY 12/16/20 Topiramate 50 mg PO BID 12/16/20 Eszopiclone 3 mg PO BEDTIME 05/18/21 - Past Medical/Surgical History Diabetic: No -: Crohn's Disease -: Chronic liver cirrhosis with TIPS procedure -: Depression with anxiety -: Neuropathy -: Insomnia -: Parkinson's -: CKD 3 -: Anemia chronic disease -: Chronic 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 -: Neuropathy -: Insomnia -: Gout -: multiple abdominal surgery due to Crohn's -: TIPS procedure -: Bleeding esophageal varices surgery Psychosocial/ Personal History: Patient disabled, lives with family - Family History Mother -: Blood disorders Notes: recently from blood disease Father -: Heart disease - Social History Smoking Status: Unknown if ever smoked Alcohol use: No CD- Drugs: No Caffeine use: Yes Place of Residence: Home Review of Systems 10-point ROS is otherwise unremarkable General: Unremarkable Eyes: Unremarkable ENT: Unremarkable Respiratory: Unremarkable Cardiovascular: Unremarkable Gastrointestinal: Unremarkable Genitourinary: Unremarkable Musculoskeletal: Back Pain Integumentary: Unremarkable Neurological: Unremarkable Lymphatics: Unremarkable Physical Examination - Physical Exam General: In no apparent distress HEENT: Atraumatic, PERRLA, Mucous membr. moist/pink, EOMI, Sclerae nonicteric Neck: Supple, 2+ carotid pulse no bruit, No LAD, Without JVD or thyroid abnormality Respiratory: Clear to auscultation bilaterally, Normal air movement Cardiovascular: Regular rate/rhythm, Normal S1 S2 Gastrointestinal: Normal bowel sounds, No tenderness Musculoskeletal: No tenderness Integumentary: No rashes Neurological: Normal speech, Normal strength at 5/5 x4 extr, Normal tone, Normal affect Lymphatics: No axilla or inguinal lymphadenopathy - Studies Laboratory Data (last 24 hrs) 07/28/21 18:05: PT 17.2 H, INR 1.49 07/28/21 18:05: WBC 5.70, Hgb 9.7 L, Hct 28.2 L, Plt Count 90 L 07/28/21 18:05: Sodium 145, Potassium 3.8, BUN 13, Creatinine 1.25, Glucose 83, Magnesium 2.1, Total Bilirubin 2.3 H, AST 30, ALT 25, Alkaline Phosphatase 76 Assessment and Plan - Problems (Diagnosis) (1) Fall Current Visit: No Status: Acute Qualifiers: Encounter type: initial encounter Qualified Code(s): W19.XXXA - Unspecified fall, initial encounter (2) Hepatic encephalopathy Onset Date: 10/03/17 Current Visit: No Status: Acute (3) Anemia Current Visit: No Status: Chronic Qualifiers: Anemia type: other cause Other causes of anemia: chronic disease, other Qualified Code(s): D63.8 - Anemia in other chronic diseases classified elsewhere (4) Crohn disease Onset Date: 10/03/17 Current Visit: No Status: Chronic Qualifiers: Gastrointestinal tract location: small intestine Digestive disease complication type: without complication Qualified Code(s): K50.00 - Crohn's disease of small intestine without complications (5) Hepatic cirrhosis Onset Date: 10/03/17 Current Visit: No Status: Chronic Qualifiers: Hepatic cirrhosis type: unspecified hepatic cirrhosis Ascites presence: without ascites Qualified Code(s): K74.60 - Unspecified cirrhosis of liver (6) Thrombocytopenia Current Visit: No Status: Chronic - Plan continue pain management as needed continue lactulose every 2 hours until she has a BM then resume home lactulose dose repeat ammonia level in the AM PT consulted urinalysis pending DVT ppx Discharge Plan: Home Plan to discharge in: 24 Hours - Advance Directives Does patient have a Living Will: Yes Does patient have a Durable POA for Healthcare: Yes - Code Status/Comfort Care Code Status Assessed: Yes (full code) Critical Care: No Time Spent Managing Pts Care (In Minutes): 70
[2021-07-28] MEDS ORDERED: TRAMADOL HCL 50 MG TAB PO PRN (23:14)
[2021-07-28] MEDS: LACTULOSE 20 GM/30 ML UCUP PO SCH (23:14)
[2021-07-28 23:18] VITALS: BMI 34.7
[2021-07-29] MEDS ORDERED: ONDANSETRON 4 MG/2 ML VIAL IV PRN
[2021-07-29] MEDS: LACTULOSE 20 GM/30 ML UCUP PO SCH ×5 (01:14→09:14)
[2021-07-29 05:41] LABS: Absolute Lymphocytes (CBC) 1.5 K/uL (0.7-4.9); Basophils % 0.8 % (0-1.3); Hematocrit 31.1 % (36.0-45.0); MPV 8.7 fL (7.6-11.3); RBC Red Blood Cell Count 3.24 M/uL (3.86-4.86)
[2021-07-29 05:58] LABS: Albumin 2.8 g/dL (3.4-5.0); Bilirubin Total 3.1 mg/dL (0.2-1.0); Magnesium 2.3 mg/dL (1.8-2.4); Phosphorus 3.9 mg/dL (2.5-4.9); Potassium 3.7 mmol/L (3.5-5.1); Protein, Total 6.6 g/dL (6.4-8.2)
[2021-07-29 07:17] VITALS: TEMP 98.2
[2021-07-29] MEDS ORDERED: OXYCODONE HCL 5 MG TAB PO ONE (09:29)
[2021-07-29] MEDS ORDERED: OXYCODONE HCL 5 MG TAB ONE (09:43)
--- NOTE | 2021-07-29 10:36 | P.DS ---
Admission Date: 07/28/21 Discharge Date: 07/29/21 Disposition: ROUTINE DISCHARGE Discharge Condition: FAIR Reason for Admission: fall, hepatic encephalopathy - Problems (1) Fall Current Visit: No Status: Acute Qualifiers: Encounter type: initial encounter Qualified Code(s): W19.XXXA - Unspecified fall, initial encounter (2) Hepatic encephalopathy Onset Date: 10/03/17 Current Visit: No Status: Acute (3) Hepatic cirrhosis Onset Date: 10/03/17 Current Visit: No Status: Chronic Qualifiers: Hepatic cirrhosis type: unspecified hepatic cirrhosis Ascites presence: without ascites Qualified Code(s): K74.60 - Unspecified cirrhosis of liver Brief History of Present Illness: Ms. Barron is a 61 yo woman with liver cirrhosis, Crohn's, anemia of chronic disease who presents for back pain beginning one week ago. She was trying to get to the bathroom but was not able to make it. She slipped and fell onto the bathroom floor. She has had lower back pain since then, worse with walking. She has been taking tramadol and gabapentin for the pain without relief. Her spouse denied any altered mental status. Ammonia level 80. Patient hospitalized for further management. Hospital Course: Patient placed under observation and started on lactulose for hepatic encephalopathy. Patient remained awake and alert and at baseline during the hospital stay. She was evaluated by PT and no further PT needs recommended. Patient deemed stable for discharge to home. She may ambulate with a walker if she continues to experience falls. Compliance to her medications emphasized. Vital Signs/Physical Exam: Temp Pulse Resp BP Pulse Ox 98.2 F 85 14 99/66 100 07/29/21 04:00 07/29/21 08:00 07/29/21 08:00 07/29/21 08:00 07/29/21 08:00 General: Alert, In no apparent distress, Oriented x3 HEENT: Normocephalic, Mucous membr. moist/pink Neck: JVD not distended Respiratory: Clear to auscultation bilaterally, Normal air movement Cardiovascular: No edema, Regular rate/rhythm, Normal S1 S2 Gastrointestinal: Normal bowel sounds, Soft and benign, Non-distended Musculoskeletal: No swelling Integumentary: No rashes Neurological: Normal strength at 5/5 x4 extr Laboratory Data at Discharge: WBC 5.50 K/uL (4.3-10.9) 07/29/21 05:30 Hgb 10.7 g/dL (12.0-15.0) L 07/29/21 05:30 Hct 31.1 % (36.0-45.0) L 07/29/21 05:30 Plt Count 105 K/uL (152-406) L 07/29/21 05:30 PT 17.2 SECONDS (9.5-12.5) H 07/28/21 18:05 INR 1.49 07/28/21 18:05 Sodium 145 mmol/L (136-145) 07/29/21 05:30 Potassium 3.7 mmol/L (3.5-5.1) 07/29/21 05:30 BUN 15 mg/dL (7-18) 07/29/21 05:30 Creatinine 1.28 mg/dL (0.55-1.3) 07/29/21 05:30 Glucose 87 mg/dL (74-106) 07/29/21 05:30 Phosphorus 3.9 mg/dL (2.5-4.9) 07/29/21 05:30 Magnesium 2.3 mg/dL (1.8-2.4) 07/29/21 05:30 Total Bilirubin 3.1 mg/dL (0.2-1.0) H 07/29/21 05:30 AST 46 U/L (15-37) H 07/29/21 05:30 ALT 31 U/L (12-78) 07/29/21 05:30 Alkaline Phosphatase 79 U/L (45-117) 07/29/21 05:30 Home Medications: Benztropine Mesylate 0.5 mg PO BID 04/10/20 Quetiapine Fumarate [Seroquel] 200 mg PO BEDTIME 04/10/20 Rifaximin [Xifaxan] 550 mg PO BID 04/10/20 Gabapentin 300 mg PO BID 12/16/20 Primidone 25 mg PO BEDTIME 12/16/20 Spironolactone [Aldactone] 50 mg PO DAILY 12/16/20 Topiramate 50 mg PO BID 12/16/20 Eszopiclone 3 mg PO BEDTIME 05/18/21 Lactulose [Cephulac*] 30 ml PO TID #90 ucup 07/29/21 New Medications: Lactulose [Cephulac*] 30 ml PO TID #90 ucup Diet: AHA Activity: Fall precautions Followup: Fernando Díaz, [Primary Care Provider] - 1-2 Weeks
[2021-07-29 12:55] VITALS: BP 119/67
[2021-07-29 14:00] VITALS: O2SAT 98
--- NOTE | 2021-07-29 17:00 | EKG ---
Test Date: 2021-07-28 Test Time: 18:06:25 Fur Examiner: CHIO MEASUREMENT RESULTS: Intervals: Rate: 63 GA: 164 QRSD: 80 QT: 420 QTc: 429 [place]: P: 40 GA: 164 QRS: 29 T: 26 INTERPRETIVE STATEMENTS: Normal sinus rhythm Normal ECG Compared to ECG 05/18/2021 18:16:05 No significant changes Electronically Signed On 07-29-21 16:59:57 [employer] by Nico Caldwell
== END 2021-07-29 13:26 | disposition home or self-care (01) ==
LOC: ER 15:34 → ERHOLD 21:44
PROVIDERS: ADMIT Internal Medicine; ATTEND Internal Medicine
DX: M54.50 Low back pain, unspecified (principal); W01.0XXA Fall on same level from slipping, tripping and stumbling without subsequent striking against object, initial encounter; Y92.009 Unspecified place in unspecified non-institutional (private) residence as the place of occurrence of the external cause; K72.90 Hepatic failure, unspecified without coma; K74.60 Unspecified cirrhosis of liver; K50.90 Crohn's disease, unspecified, without complications; D63.8 Anemia in other chronic diseases classified elsewhere; D69.6 Thrombocytopenia, unspecified; Z20.822 Contact with and (suspected) exposure to COVID-19
CPT/HCPCS: 93005; 85025 ×2; 80048; 36415; 82140 ×2; 83735 ×2; 80329 ×2; 84100; 85610; 80076; 84484; 80053; 83880; 72131; 71045; 97116; 97161; 96375; 96374; 99285; U0003; J1170; J2405; G0378 ×3

== ENCOUNTER 2021-09-01 13:23 | Emergency (ER) | payer OTHER ==
--- OUTSIDE RECORDS SUMMARY | 2021-09-01 13:29 | XMS REPORT | Continuity of Care Document ---
:1960 Author Organization [facility] t Address [address] [place] [address] Care Team Providers Name Role Phone SAVANNAH EDWARDS Primary Care Physician Unavailable AVE Attending Clinician Unavailable CAM Attending Clinician Unavailable JERRY Attending Clinician Unavailable ROM Attending Clinician Unavailable MD ROM Attending Clinician Unavailable MD MICHELLE DORADO Attending Clinician Unavailable DO Kortney HE Attending Clinician Unavailable YING Attending Clinician Unavailable ROLANDO Attending Clinician Unavailable CHELA Attending Clinician Unavailable MD SWAPNA ABDULLAHI Attending Clinician Unavailable TING BARCENAS Attending Clinician Unavailable MD Ping EDWARDS Attending Clinician Unavailable TELLO Attending Clinician Unavailable AICHA Attending Clinician Unavailable MD CHELA Attending Clinician Unavailable MD ERIKA MARSHALL Attending Clinician Unavailable ELLE Attending Clinician Unavailable PLACIDO Attending Clinician Unavailable MARYBETH Attending Clinician Unavailable MD Ivone CHAMPION Attending Clinician Unavailable YOJANA Attending Clinician Unavailable DO ORLANDO RUEDA Attending Clinician Unavailable JACQUELIN Attending Clinician Unavailable MEAGAN Attending Clinician Unavailable Faustino Fuchs Attending Clinician Faustino CORRIGAN Attending Clinician Unavailable Doctor Unassigned, Name Attending Clinician Unavailable DARCY Attending Clinician Unavailable Anil OLMOS Attending Clinician Faustino Jensen MD Attending Clinician Sara Motta MD Attending Clinician Brandon FRANKLIN Attending Clinician PALMER Attending Clinician Unavailable TING BARCENAS Admitting Clinician Unavailable MD SWAPNA ABDULLAHI Admitting Clinician Unavailable MD MICHELLE DORADO Admitting Clinician Unavailable DO Kortney HE Admitting Clinician Unavailable ROM Admitting Clinician Unavailable MD ROM Admitting Clinician Unavailable CHELA Admitting Clinician Unavailable MD Ping EDWARDS Admitting Clinician Unavailable MD CHELA Admitting Clinician Unavailable MAGDA Admitting Clinician Unavailable MD MAGDA PLaurel Admitting Clinician Unavailable JAYCEE Admitting Clinician Unavailable MD Ivone CHAMPION Admitting Clinician Unavailable MARYBETH Admitting Clinician Unavailable DO ORLANDO RUEDA Admitting Clinician Unavailable ROLANDO Admitting Clinician Unavailable DARCY Admitting Clinician Unavailable Sara Motta MD Admitting Clinician Payers Payer Name Policy Type Policy Number Effective Date Expiration Date S [facility] MEDICARE PART A \\T\\ [id number] 2015 B 00:00:00 [place]ICAID OF [place] [id number] 2018 00:00:00 [facility] [id number] 2016 MEDICAID 00:00:00 Advance Directives Directive Decision Effective Termination Comments Source Date Date Healthcare Agents on N/A [facility] ersity FileNameRelationshipHealthcare [facility] [place] [facility] Agent Medical RelationshipCommunicationMiravista Behavioral Health Center MaconSpousePrimary healthcare [phone] (Mobile) Problems Condition Condition Condition Status Onset Resolution Last Treating Co mments Source Name Details Category Date Date Treatment Clinician Date Obesity Obesity Disease Active Univers (BMI (BMI 7-26 ity of 30-39.9) 30-39.9) 00:00: [address] Branch Hematochez Hematochez Disease Active U nivers ia ia 7-26 ity of 00:00: [address] 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 2-02 it y of athy athy 00:00: [address] Right Right Disease Active Univers shoulder shoulder 4-25 ity of pain pain 00:00: [address] Branch Anxiety Anxiety Disease Active Univers and and 4-22 ity of depression depression 00:[place] [facility] Crohn Crohn Disease Active Univers disease disease 4- ity of 00:00: [place] 00 [facility] 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 4 ity of 00:00: [place] 00 [facility] Branch Anxiety Anxiety Disease Active Univers and and 4 ity of depression depression 00:[place] [facility] Rectal Rectal Disease Active 2014-08 Univers bleed bleed 2- ity of 00:00: [place] 00 [facility] Branch Allergies, Adverse Reactions, Alerts Allergy Allergy Status Severity Reaction(s) Onset Inactive Treating Comm ents Source Name Type Date Date Clinician Ceftriax Propensi Active Itching Unive rs one ty to 2-25 ity of adverse 00:00: [place] reaction Medical [facility] CEFTRIAX DRUG Active ITCHING Univers ONE INGREDI 2-25 ity of 00:00: [place] 00 Medical [place] PROMETHA DRUG Active Other-Cmnt Univ ers ZINE INGREDI 3-27 ity of 00:00: [place] 00 Medical Branch Prometha Propensi Active Other - See 2017 Severe U nivers zine ty to comments 3-27 confusion ity o f adverse 00:00: [place] reaction 00 Medical s [place] Eggshell Propensi Active Diarrhea 20170 [place] Un linda Membrane ty to 2-27 ity of adverse 00:00: [place] reaction 00 Medical s Branch EGGSHELL DRUG Active Diarrhea Univer s MEMBRANE INGREDI 2-27 ity of 00:00: [place] 00 Medical Branch SHELLFIS DRUG Active High Anaphylaxis Uni vers H INGREDI 9-24 ity of DERIVED 00:00: [place] 00 Medical Branch Shellfis Propensi Active Anaphylaxis U nivers h ty to 9-24 ity of Derived adverse 00:00: [place] reaction 00 Medical s Branch Iodine Propensi Active Anaphylaxis Uni vers ty to 8-18 ity of adverse 00:00: [place] reaction 00 Medical s Branch IODINE DRUG Active Anaphylaxis Unive rs INGREDI 8-18 ity of 00:00: [place] 00 Medical Branch Phenerga Adverse Active Info Not [facility] Iodine Adverse Active Info Not [facility] Reaction Available [facility] Social History Social Habit Start Date Stop Date Quantity Comments Source Sex Assigned At Universit y of [facility] Exposure to Not sure University of SARS-CoV-2 (event) [facility] Cigarettes smoked 2019-12-22 2019-12-22 Univers ity of current (pack per 00:00:00 00:00:00 ) - Reported Branch Alcohol intake 2019-12-22 2019-12-22 [facility] 00:00:00 00:00:00 [facility] History of tobacco 1979-01-30 2018-08-12 Cigarette Smoker [facility] 00:00:00 00:00:00 [facility] Smoking Status Start Date Stop Date Source Former smoker 2019-12-22 00:00:00 2019-12-22 00:00:00 Universi ty [facility] Medications Ordered Filled Start Stop Current Ordering Indication Dosage Frequency Signature Comments Components Source Medication Medication Date Date Medication? Clinician (SIG) Name Name sodium 2020-0 2020- No 30mg Univers hyaluronate 12-21 ity of (viscosup) 20:30: 19:25 [place] (ORTHOVISC) 00 :00 Medical injection Branch 30 mg sodium 2020-0 2020- No 30mg 30 mg, Univers hyaluronate 12-21-12 Intra-brennen i ty of (viscosup) 20:30: 19:25 Kalyani melendez (ORTHOVISC) 00 :00 ONCE, 1 Medic al injection dose, Tue Branc h 30 mg 12/22/19 at 1530, Routine sodium 2020-0 2020- No 30mg Univers hyaluronate 12-21- ity of (viscosup) 20:30: 19:25 [place] (ORTHOVISC) 00 :00 Medical injection Branch 30 mg sodium 2020-0 2020- No 30mg 30 mg, Univers hyaluronate -07 16-12 Intra-brennen i ty of (viscosup) 20:30: 19:25 Kalyani melendez s (ORTHOVISC) 00 :00 ONCE, 1 Medic al injection dose, Tue Branc h 30 mg 12/22/19 at 1530, Routine sodium 2020-0 2020- No 30mg Univers hyaluronate -12 14-05 ity of (viscosup) 21:15: 20:03 [place] (ORTHOVISC) 00 :00 Medical injection Branch 30 mg sodium 2020-0 2020- No 30mg 30 mg, Univers hyaluronate 5- 05-05 Intra-brennen i ty of (viscosup) 21:15: 20:03 Kalyani melendez s (ORTHOVISC) 00 :00 ONCE, 1 Medic al injection dose, Tue Branc h 30 mg 12/15/19 at 1615, Routine sodium 2020-0 2020- No 30mg Univers hyaluronate 5-12 14-05 ity of (viscosup) 21:15: 20:03 [place] (ORTHOVISC) 00 :00 Medical injection Branch 30 mg sodium 2020-0 2020- No 30mg 30 mg, Univers hyaluronate 5- 05-05 Intra-brennen i ty of (viscosup) 21:15: 20:03 Kalyani melendez s (ORTHOVISC) 00 :00 ONCE, 1 Medic al injection dose, Tue Branc h 30 mg 12/15/19 at 1615, Routine sodium 2020-0 2020- No [id number] 30mg Uni vers hyaluronate 12-07 9100 ity of (viscosup) 22:15: 21:08 [place] (ORTHOVISC) 00 :00 Medical injection Branch 30 mg sodium 2020-0 2020- No [id number] 30mg 30 mg, U nivers hyaluronate 12-07 9100 Intra-brennen i ty of (viscosup) 22:15: 21:08 al [place] s (ORTHOVISC) 00 :00 ONCE, 1 Medic al injection dose, Tue Branc h 30 mg 12/08/19 at 1715, Routine sodium 2020-0 2020- No [id number] 30mg Uni vers hyaluronate 12-07 9100 ity of (viscosup) 22:15: 21:08 [place] (ORTHOVISC) 00 :00 Medical injection Branch 30 mg sodium 2020-0 2020- No [id number] 30mg 30 mg, U nivers hyaluronate 12-07 9100 Intra-brennen i ty of (viscosup) 22:15: 21:08 Kalyani melendez s (ORTHOVISC) 00 :00 ONCE, 1 Medic al injection dose, Tue Branc h 30 mg 12/08/19 at 1715, Routine eszopiclone 2019-0 Yes 2mg Take 2 mg U nivers 2 mg tablet 7-29 by mouth ity of 21:42: at [place] [address] bedtime. Medical Branch GABAPENTIN 0 Yes Take by Uni vers ORAL 7-29 mouth. ity of 21:42: [place] [address] Medical Branch traMADOL 50 0 Yes 50mg Take 50 mg Univers mg tablet 7-29 by mouth ity of 21:42: as needed [place] [address] for Pain Medical (scale Branch 7-10). methylnaltr 0 Yes Take by Un linda exone 7-29 mouth. ity of bromide 21:42: [place] (RELISTOR 13 Medical ORAL) Branch potassium 0 Yes Take by Univ ers (POTASSIMIN 7-29 mouth once it y of ORAL) 21:42: now. [place] [address] Medical Branch spironolact Yes 100mg Take 100 U nivers one 100 mg 7-29 mg by ity of tablet 21:42: mouth. [place] [address] Medical Branch eszopiclone Yes 2mg Take 2 mg U nivers 2 mg tablet 7-29 by mouth ity of 21:42: at [place] [address] bedtime. Medical Branch GABAPENTIN Yes Take by Uni vers ORAL 7-29 mouth. ity of 21:42: [place] [address] Medical Branch traMADOL 50 Yes 50mg Take 50 mg Univers mg tablet 7-29 by mouth ity of 21:42: as needed [place] [address] for Pain Medical (scale Branch 7-10). methylnaltr 0 Yes Take by Un linda exone 7-29 mouth. ity of bromide 21:42: [place] (RELISTOR 13 Medical ORAL) Branch potassium Yes Take by [facility] ers (POTASSIMIN 7-29 mouth once it y of ORAL) 21:42: now. [place] [address] Medical Branch spironolact 0 Yes 100mg Take 100 U nivers one 100 mg 7-29 mg by ity of tablet 21:42: mouth. [place] [address] Medical Branch eszopiclone 20190 Yes 2mg Take 2 mg U nivers 2 mg tablet 7-29 by mouth ity of 21:42: at [place] [address] bedtime. Medical Branch GABAPENTIN 0 Yes Take by Uni vers ORAL 7-29 mouth. ity of 21:42: [place] [address] Medical Branch traMADOL 50 Yes 50mg Take 50 mg Univers mg tablet 7-29 by mouth ity of 21:42: as needed [place] [address] for Pain Medical (scale Branch 7-10). methylnaltr Yes Take by Un linda exone 7-29 mouth. ity of bromide 21:42: [place] (RELISTOR 13 Medical ORAL) Branch potassium Yes Take by [facility] ers (POTASSIMIN 7-29 mouth once it y of ORAL) 21:42: now. [place] [address] Medical Branch spironolact Yes 100mg Take 100 U nivers one 100 mg 7-29 mg by ity of tablet 21:42: mouth. [place] [address] Medical Branch eszopiclone Yes 2mg Take 2 mg U nivers 2 mg tablet 7-29 by mouth ity of 21:42: at [place] [address] bedtime. Medical Branch GABAPENTIN Yes Take by Uni vers ORAL 7-29 mouth. ity of 21:42: [place] [address] Medical Branch traMADOL 50 Yes 50mg Take 50 mg Univers mg tablet 7-29 by mouth ity of 21:42: as needed [place] [address] for Pain Medical (scale Branch 7-10). methylnaltr Yes Take by Un linda exone 7-29 mouth. ity of bromide 21:42: [place] [facility] ORAL) Branch potassium Yes Take by [facility] ers (POTASSIMIN 7-29 mouth once it y of ORAL) 21:42: now. [place] [address] Medical Branch spironolact Yes 100mg Take 100 U nivers one 100 mg 7-29 mg by ity of tablet 21:42: mouth. [place] [address] Medical Branch eszopiclone Yes 2mg Take 2 mg U nivers 2 mg tablet 7-29 by mouth ity of 21:42: at [place] [address] bedtime. Medical Branch GABAPENTIN Yes Take by Uni vers ORAL 7-29 mouth. ity of 21:42: [place] [address] Medical Branch traMADOL 50 0 Yes 50mg Take 50 mg Univers mg tablet 7-29 by mouth ity of 21:42: as needed [place] [address] for Pain Medical (scale Branch 7-10). methylnaltr Yes Take by Un linda exone 7-29 mouth. ity of bromide 21:42: [place] (RELISTOR 13 Medical ORAL) Branch potassium Yes Take by [facility] ers (POTASSIMIN 7-29 mouth once it y of ORAL) 21:42: now. [place] [address] Medical Branch spironolact Yes 100mg Take 100 U nivers one 100 mg 7-29 mg by ity of tablet 21:42: mouth. [place] [address] Medical Branch eszopiclone Yes 2mg Take 2 mg U nivers 2 mg tablet 7-29 by mouth ity of 21:42: at [place] [address] bedtime. Medical Branch GABAPENTIN Yes Take by Uni vers ORAL 7-29 mouth. ity of 21:42: [place] [address] Medical Branch traMADOL 50 Yes 50mg Take 50 mg Univers mg tablet 7-29 by mouth ity of 21:42: as needed [place] [address] for Pain Medical (scale Branch 7-10). methylnaltr Yes Take by Un linda exone 7-29 mouth. ity of bromide 21:42: [place] (RELISTOR 13 Medical ORAL) Branch potassium Yes Take by [facility] ers (POTASSIMIN 7-29 mouth once it y of ORAL) 21:42: now. [place] [address] Medical Branch spironolact Yes 100mg Take 100 U nivers one 100 mg 7-29 mg by ity of tablet 21:42: mouth. [place] [address] Medical Branch eszopiclone Yes 2mg Take 2 mg U nivers 2 mg tablet 7-29 by mouth ity of 21:42: at [place] [address] bedtime. Medical Branch GABAPENTIN Yes Take by Uni vers ORAL 7-29 mouth. ity of 21:42: [place] [address] Medical Branch traMADOL 50 0 Yes 50mg Take 50 mg Univers mg tablet 7-29 by mouth ity of 21:42: as needed [place] [address] for Pain Medical (scale Branch 7-10). methylnaltr Yes Take by Un linda exone 7-29 mouth. ity of bromide 21:42: [place] (RELISTOR 13 Medical ORAL) Branch potassium 0 Yes Take by [facility] ers (POTASSIMIN 7-29 mouth once it y of ORAL) 21:42: now. [place] [address] Medical Branch spironolact Yes 100mg Take 100 U nivers one 100 mg 7-29 mg by ity of tablet 21:42: mouth. [place] [address] Medical Branch eszopiclone Yes 2mg Take 2 mg U nivers 2 mg tablet 7-29 by mouth ity of 21:42: at [place] [address] bedtime. Medical Branch GABAPENTIN 0 Yes Take by Uni vers ORAL 7-29 mouth. ity of 21:42: [place] [address] Medical Branch traMADOL 50 Yes 50mg Take 50 mg Univers mg tablet 7-29 by mouth ity of 21:42: as needed [place] [address] for Pain Medical (scale Branch 7-10). methylnaltr 0 Yes Take by Un linda exone 7-29 mouth. ity of bromide 21:42: [place] (RELISTOR 13 Medical ORAL) Branch potassium Yes Take by Univ ers (POTASSIMIN 7-29 mouth once it y of ORAL) 21:42: now. [place] [address] Medical Branch spironolact Yes 100mg Take 100 U nivers one 100 mg 7-29 mg by ity of tablet 21:42: mouth. [place] [address] Medical Branch eszopiclone Yes 2mg Take 2 mg U nivers 2 mg tablet 7-29 by mouth ity of 21:42: at [place] [address] bedtime. Medical Branch GABAPENTIN Yes Take by Uni vers ORAL 7-29 mouth. ity of 21:42: [place] [address] Medical Branch traMADOL 50 Yes 50mg Take 50 mg Univers mg tablet 7-29 by mouth ity of 21:42: as needed [place] [address] for Pain Medical (scale Branch 7-10). methylnaltr 0 Yes Take by Un linda exone 7-29 mouth. ity of bromide 21:42: [place] (RELISTOR 13 Medical ORAL) Branch potassium 0 Yes Take by Univ ers (POTASSIMIN 7-29 mouth once it y of ORAL) 21:42: now. [place] [address] Medical Branch spironolact 0 Yes 100mg Take 100 U nivers one 100 mg 7-29 mg by ity of tablet 21:42: mouth. [place] [address] Medical Branch eszopiclone 20190 Yes 2mg Take 2 mg U nivers 2 mg tablet 7-29 by mouth ity of 21:42: at [place] [address] bedtime. Medical Branch GABAPENTIN 0 Yes Take by Uni vers ORAL 7-29 mouth. ity of 21:42: [place] [address] Medical Branch traMADOL 50 Yes 50mg Take 50 mg Univers mg tablet 7-29 by mouth ity of 21:42: as needed [place] [address] for Pain Medical (scale Branch 7-10). methylnaltr 20190 Yes Take by Un linda exone 7-29 mouth. ity of bromide 21:42: [place] (RELISTOR 13 Medical ORAL) Branch potassium 0 Yes Take by [facility] ers (POTASSIMIN 7-29 mouth once it y of ORAL) 21:42: now. [place] [address] Medical Branch spironolact Yes 100mg Take 100 U nivers one 100 mg 7-29 mg by ity of tablet 21:42: mouth. [place] [address] Medical Branch eszopiclone Yes 2mg Take 2 mg U nivers 2 mg tablet 7-29 by mouth ity of 21:42: at [place] [address] bedtime. Medical Branch GABAPENTIN Yes Take by Uni vers ORAL 7-29 mouth. ity of 21:42: [place] [address] Medical Branch traMADOL 50 Yes 50mg Take 50 mg Univers mg tablet 7-29 by mouth ity of 21:42: as needed [place] [address] for Pain Medical (scale Branch 7-10). methylnaltr 0 Yes Take by Un linda exone 7-29 mouth. ity of bromide 21:42: [place] (RELISTOR 13 Medical ORAL) Branch potassium Yes Take by [facility] ers (POTASSIMIN 7-29 mouth once it y of ORAL) 21:42: now. [place] [address] Medical Branch spironolact Yes 100mg Take 100 U nivers one 100 mg 7-29 mg by ity of tablet 21:42: mouth. [place] [address] Medical Branch eszopiclone Yes 2mg Take 2 mg U nivers 2 mg tablet 7-29 by mouth ity of 21:42: at [place] [address] bedtime. Medical Branch GABAPENTIN 0 Yes Take by Uni vers ORAL 7-29 mouth. ity of 21:42: [place] [address] Medical Branch traMADOL 50 0 Yes 50mg Take 50 mg Univers mg tablet 7-29 by mouth ity of 21:42: as needed [place] [address] for Pain Medical (scale Branch 7-10). methylnaltr 0 Yes Take by Un linda exone 7-29 mouth. ity of bromide 21:42: [place] (RELISTOR 13 Medical ORAL) Branch potassium Yes Take by Univ ers (POTASSIMIN 7-29 mouth once it y of ORAL) 21:42: now. [place] [address] Medical Branch spironolact Yes 100mg Take 100 U nivers one 100 mg 7-29 mg by ity of tablet 21:42: mouth. [place] [address] Medical Branch eszopiclone Yes 2mg Take 2 mg U nivers 2 mg tablet 7-29 by mouth ity of 21:42: at [place] [address] bedtime. Medical Branch eszopiclone 2018- Yes 2mg Take 2 mg U nivers 2 mg tablet 7-29 by mouth ity of 21:42: at [place] [address] bedtime. Medical Branch GABAPENTIN Yes Take by Uni vers ORAL 7-29 mouth. ity of 21:42: [place] [address] Medical Branch traMADOL 50 Yes 50mg Take 50 mg Univers mg tablet 7-29 by mouth ity of 21:42: as needed [place] [address] for Pain Medical (scale Branch 7-10). methylnaltr 0 Yes Take by Un linda exone 7-29 mouth. ity of bromide 21:42: [place] ([facility] ORAL) Branch potassium Yes Take by Univ ers (POTASSIMIN 7-29 mouth once it y of ORAL) 21:42: now. [place] [address] Medical Branch GABAPENTIN 0 Yes Take by Uni vers ORAL 7-29 mouth. ity of 21:42: [place] [address] Medical Branch spironolact Yes 100mg Take 100 U nivers one 100 mg 7-29 mg by ity of tablet 21:42: mouth. [place] [address] Medical Branch traMADOL 50 0 Yes 50mg Take 50 mg Univers mg tablet 7-29 by mouth ity of 21:42: as needed [place] [address] for Pain Medical (scale Branch 7-10). methylnaltr 2018-0 Yes Take by Un linda exone 7-29 mouth. ity of bromide 21:42: [place] (RELISTOR 13 Medical ORAL) Branch potassium 0 Yes Take by Univ ers (POTASSIMIN 7-29 mouth once it y of ORAL) 21:42: now. [place] [address] Medical Branch spironolact Yes 100mg Take 100 U nivers one 100 mg 7-29 mg by ity of tablet 21:42: mouth. [place] 13 Medical Branch lactulose 2019-0 2019- No Take by Uni vers (KRISTALOSE 7-29 07-29 mouth 2 ity of ORAL) 20:49: 00:00 (two) [place] 08 :00 times Medical daily. Branch lactulose 2019-0 Yes [id number] 20g Take 1 Un linda (KRISTALOSE 7-29 Packet by ity of ) 20 gram 00:00: mouth 3 [place] packet 00 (three) Medical times Branch daily. lactulose 2019-0 Yes [id number] 20g Take 1 Un linda (KRISTALOSE 7-29 Packet by ity of ) 20 gram 00:00: mouth 3 [place] packet 00 (three) Medical times Branch daily. lactulose 2019-0 Yes [id number] 20g Take 1 Un linda (KRISTALOSE 7-29 Packet by ity of ) 20 gram 00:00: mouth 3 [place] packet 00 (three) Medical times Branch daily. lactulose 2019-0 Yes [id number] 20g Take 1 Un linda (KRISTALOSE 7-29 Packet by ity of ) 20 gram 00:00: mouth 3 [place] packet 00 (three) Medical times Branch daily. lactulose 2019-0 Yes [id number] 20g Take 1 Un linda (KRISTALOSE 7-29 Packet by ity of ) 20 gram 00:00: mouth 3 [place] packet 00 (three) Medical times Branch daily. lactulose 2019-0 Yes [id number] 20g Take 1 Un linda (KRISTALOSE 7-29 Packet by ity of ) 20 gram 00:00: mouth 3 [place] packet 00 (three) Medical times Branch daily. lactulose 2019-0 Yes [id number] 20g Take 1 Un linda (KRISTALOSE 7-29 Packet by ity of ) 20 gram 00:00: mouth 3 [place] packet 00 (three) Medical times Branch daily. lactulose 2019-0 Yes [id number] 20g Take 1 Un linda (KRISTALOSE 7-29 Packet by ity of ) 20 gram 00:00: mouth 3 [place] packet 00 (three) Medical times Branch daily. lactulose 2019-0 Yes [id number] 20g Take 1 Un linda (KRISTALOSE 7-29 Packet by ity of ) 20 gram 00:00: mouth 3 [place] packet 00 (three) Medical times Branch daily. lactulose 2019-0 Yes [id number] 20g Take 1 Un linda (KRISTALOSE 7-29 Packet by ity of ) 20 gram 00:00: mouth 3 [place] packet 00 (three) Medical times Branch daily. lactulose 2019-0 Yes [id number] 20g Take 1 Un linda (KRISTALOSE 7-29 Packet by ity of ) 20 gram 00:00: mouth 3 [place] packet 00 (three) Medical times Branch daily. lactulose 2019-0 Yes [id number] 20g Take 1 Un linda (KRISTALOSE 7-29 Packet by ity of ) 20 gram 00:00: mouth 3 [place] packet 00 (three) Medical times Branch daily. lactulose 2019-0 Yes [id number] 20g Take 1 Un linda (KRISTALOSE 7-29 Packet by ity of ) 20 gram 00:00: mouth 3 [place] packet 00 (three) Medical times Branch daily. lactulose 2018-0 Yes [id number] 20g Take 1 Un linda (KRISTALOSE 7-29 Packet by ity of ) 20 gram 00:00: mouth 3 [place] packet 00 (three) Medical times Branch daily. lactulose 2019- No 1{enema 1 Enema, Univers 300 mL 03-08 } Rectal, ity of (Added to 21:00: 03:09 Q4H, First [place] water or 00 :53 dose on Medical saline 700 [place] Branch mL) enema 1 03/08/19 at Enema 1600, Until Discontinu ed, Routine ondansetron 2018-0 Yes 4mg 4 mg, Unive rs (ZOFRAN) 03-08 Oral, Q8H, ity o f tablet 4 mg 19:45: First dose on [facility] 03/08/19 at Branch 1445, Until Discontinu ed, Routine lactulose 2018-0 Yes 20g 20 g, Univers (CEPHULAC) 7-28 Oral, TID, ity of packet 20 g 01:00: First dose on [facility] 03/07/19 at Branch 2000, Until Discontinu ed, Routine NaCl 0.9% 2019- 2019- No 250mL at 999 Univ ers (NS) IV 03-07 07-27 mL/hr, IV ity of infusion 18:15: 18:13 Infusion, [place] 250 mL 00 :00 ONCE, 1 Medical dose, Sat [place] 03/07/19 at 1315, Routine rifAXIMin Yes 550mg 550 mg, [facility] ers (XIFAXAN) 03-07 Oral, BID, ity of tablet 550 01:00: First dose [place] mg 00 on Fri Medical 03/06/19 at Branch 1999, Until Discontinu ed, Routine
Reason for Anti-Infec [...] Routine lactated 2019- No 1000mL at 999 [facility] ringers IV 03-07 mL/hr, ity of infusion 00:15: 01:46 1,000 mL, [place] as 1,000 mL 00 :00 IV Medical Infusion, Branch ONCE, 1 dose, 03/06/19 at 1915, Routine ondansetron 2018- No 4mg 4 mg, Slow Univers (ZOFRAN 03-06 IV Push, ity of (PF)) 23:04: 19:35 Q6HPRN, [place] injection 4 12 :40 Starting Medi cj mg Fri [place] 03/06/19 at 1804, Until 03/08/19 at 1435, Routine, Nausea and Vomiting (N/V) peg-electro 2019- No 2000mL 2,000 mL, [facility] lyte soln 03-06 Oral, ity of (GOLYTELY) 23:04: 01:47 PRE-PROCED [place] [id number] 12 :00 URE ONCE, Med ical .74 -5.86 1 dose, Branch gram Starting solution Fri 2,000 mL 03/06/19 at 1804, Until Discontinu ed, Routine, Bowel Prep, Colonoscop y sodium 2019- No 2{enema 2 Enema, Uni vers phosphates 03-06 } Rectal, ity o f (FLEET 19:30: 18:54 ONCE, 1 [place] ENEMA) 19-7 00 :00 dose, Fri Med ical gram/118 [...] Routine 4,000 mL esomeprazol 2019- No 8mg/h [facility] ers e (NEXIUM) 03-06 ity of 80 mg in 17:00: 16:59 [place] NaCl 0.9% 00 :48 Medical (NS) 100 mL Branch IV infusion lactated 2019- No 1000mL at 100 [facility] ers ringers IV 03-06 mL/hr, ity of [...] 03-06 Oral, ity of (TYLENOL) 15:49: Q6HPRN, [place] tablet 650 23 Starting Medic al mg Fri Branch 03/06/19 at 1049, Until Discontinu ed, Routine, Pain (scale 1-3) FENTanyl PF 2018- 2019- No 25ug 25 mcg, Un linda (SUBLIMAZE 03-06 Slow IV ity o f (PF)) 12:15: 11:20 Push, [place] injection 00 :00 ONCE, 1 Medical 25 mcg dose, Fri Branch 03/06/19 at 0715, STAT ondansetron 2019-0 Yes [id number] 8mg Take 2 Univers 4 mg tablet 4-01 tablets by it y of 00:00: mouth [place] 00 every 8 Medical (eight) Branch hours as needed for Nausea and Vomiting (N/V). ondansetron 2019-0 Yes [id number] 8mg Take 2 Univers 4 mg tablet 4-01 tablets by it y of 00:00: mouth [place] 00 every 8 Medical (eight) Branch hours as needed for Nausea and Vomiting (N/V). ondansetron 2019-0 Yes [id number] 8mg Take 2 Univers 4 mg tablet 4-01 tablets by it y of 00:00: mouth [place] 00 every 8 Medical (eight) Branch hours as needed for Nausea and Vomiting (N/V). ondansetron 2019-0 Yes [id number] 8mg Take 2 Univers 4 mg tablet 4-01 tablets by it y of 00:00: mouth [place] 00 every 8 Medical (eight) Branch hours as needed for Nausea and Vomiting (N/V). ondansetron 2019-0 Yes [id number] 8mg Take 2 Univers 4 mg tablet 4-01 tablets by it y of 00:00: mouth [place] 00 every 8 Medical (eight) Branch hours as needed for Nausea and Vomiting (N/V). ondansetron 2019-0 Yes [id number] 8mg Take 2 Univers 4 mg tablet 4-01 tablets by it y of 00:00: mouth [place] 00 every 8 Medical (eight) Branch hours as needed for Nausea and Vomiting (N/V). ondansetron 2019-0 Yes [id number] 8mg Take 2 Univers 4 mg tablet 4-01 tablets by it y of 00:00: mouth [place] 00 every 8 Medical (eight) Branch hours as needed for Nausea and Vomiting (N/V). ondansetron 2019-0 Yes [id number] 8mg Take 2 Univers 4 mg tablet 4-01 tablets by it y of 00:00: mouth [place] 00 every 8 Medical (eight) Branch hours as needed for Nausea and Vomiting (N/V). ondansetron 2019-0 Yes [id number] 8mg Take 2 Univers 4 mg tablet 4-01 tablets by it y of 00:00: mouth [place] 00 every 8 Medical (eight) Branch hours as needed for Nausea and Vomiting (N/V). ondansetron 2019-0 Yes [id number] 8mg Take 2 Univers 4 mg tablet 4-01 tablets by it y of 00:00: mouth [place] 00 every 8 Medical (eight) Branch hours as needed for Nausea and Vomiting (N/V). ondansetron 2019-0 Yes [id number] 8mg Take 2 Univers 4 mg tablet 4-01 tablets by it y of 00:00: mouth [place] 00 every 8 Medical (eight) Branch hours as needed for Nausea and Vomiting (N/V). ondansetron 2019-0 Yes [id number] 8mg Take 2 Univers 4 mg tablet 4-01 tablets by it y of 00:00: mouth [place] 00 every 8 Medical (eight) Branch hours as needed for Nausea and Vomiting (N/V). ondansetron 2019-0 Yes [id number] 8mg Take 2 Univers 4 mg tablet 4-01 tablets by it y of 00:00: mouth [place] 00 every 8 Medical (eight) Branch hours as needed for Nausea and Vomiting (N/V). ondansetron 2019-0 Yes [id number] 8mg Take 2 Univers 4 mg tablet 4-01 tablets by it y of 00:00: mouth [place] 00 every 8 Medical (eight) Branch hours as needed for Nausea and Vomiting (N/V). acetaminoph 2018-0 2019- No [id number] 1{tbl} Take 1 Univers en-codeine 4-01 07-29 tablet by ity of 300-30 mg 00:00: 00:00 mouth [place] tablet 00 :00 every 6 Medical (six) Branch hours as needed (pain). butalbital- 2018-0 Yes [id number] 1{capsu Take 1 Univers aspirin-caf 3-25 le} capsule by it y of feine 00:00: mouth [place] 50-325-40 00 every 4 Medical mg per (four) Branch capsule hours as needed for Pain (headache unrelieved wtih other medication s). butalbital Yes [id number] 1{capsu Take 1 Univers aspirin-caf 3-25 le} capsule by it y of feine 00:00: mouth [place] 50-325-40 00 every 4 Medical mg per (four) Branch capsule hours as needed for Pain (headache unrelieved wtih other medication s). butalbital Yes [id number] 1{capsu Take 1 Univers aspirin-caf 3-25 le} capsule by it y of feine 00:00: mouth [place] 50-325-40 00 every 4 Medical mg per (four) Branch capsule hours as needed for Pain (headache unrelieved wtih other medication s). butalbital Yes [id number] 1{capsu Take 1 Univers aspirin-caf 3-25 le} capsule by it y of feine 00:00: mouth [place] 50-325-40 00 every 4 Medical mg per (four) Branch capsule hours as needed for Pain (headache unrelieved wtih other medication s). butalbital Yes [id number] 1{capsu Take 1 Univers aspirin-caf 3-25 le} capsule by it y of feine 00:00: mouth [place] 50-325-40 00 every 4 Medical mg per (four) Branch capsule hours as needed for Pain (headache unrelieved wtih other medication s). butalbital Yes [id number] 1{capsu Take 1 Univers aspirin-caf 3-25 le} capsule by it y of feine 00:00: mouth [place] 50-325-40 00 every 4 Medical mg per (four) Branch capsule hours as needed for Pain (headache unrelieved wtih other medication s). butalbital Yes [id number] 1{capsu Take 1 Univers aspirin-caf 3-25 le} capsule by it y of feine 00:00: mouth [place] 50-325-40 00 every 4 Medical mg per (four) Branch capsule hours as needed for Pain (headache unrelieved wtih other medication s). butalbital Yes [id number] 1{capsu Take 1 Univers aspirin-caf 3-25 le} capsule by it y of feine 00:00: mouth [place] 50-325-40 00 every 4 Medical mg per (four) Branch capsule hours as needed for Pain (headache unrelieved wtih other medication s). butalbital Yes [id number] 1{capsu Take 1 Univers aspirin-caf 3-25 le} capsule by it y of feine 00:00: mouth [place] 50-325-40 00 every 4 Medical mg per (four) Branch capsule hours as needed for Pain (headache unrelieved wtih other medication s). butalbital Yes [id number] 1{capsu Take 1 Univers aspirin-caf 3-25 le} capsule by it y of feine 00:00: mouth [place] 50-325-40 00 every 4 Medical mg per (four) Branch capsule hours as needed for Pain (headache unrelieved wtih other medication s). butalbital Yes [id number] 1{capsu Take 1 Univers aspirin-caf 3-25 le} capsule by it y of feine 00:00: mouth [place] 50-325-40 00 every 4 Medical mg per (four) Branch capsule hours as needed for Pain (headache unrelieved wtih other medication s). butalbit Yes [id number] 1{capsu Take 1 Univers aspirin-caf 3-25 le} capsule by it y of feine 00:00: mouth [place] 50-325-40 00 every 4 Medical mg per (four) Branch capsule hours as needed for Pain (headache unrelieved wtih other medication s). butalbital Yes [id number] 1{capsu Take 1 Univers aspirin-caf 3-25 le} capsule by it y of feine 00:00: mouth [place] 50-325-40 00 every 4 Medical mg per (four) Branch capsule hours as needed for Pain (headache unrelieved wtih other medication s). butalbital Yes [id number] 1{capsu Take 1 Univers aspirin-caf 3-25 le} capsule by it y of feine 00:00: mouth [place] 50-325-40 00 every 4 Medical mg per (four) Branch capsule hours as needed for Pain (headache unrelieved wtih other medication s). MELOXICAM 2017-08- No TAKE 1 Unive rs 7.5 mg 09-23 TABLET BY ity of tablet 00:00: 00:00 MOUTH [place] 00 :00 EVERY DAY Medical Branch XIFAXAN 550 2016- Yes [id number] TAKE ONE Univers mg tablet 1-27 TABLET BY ity o f 00:00: MOUTH 2 [place] 00 TIMES A Medical DAY Branch PANTOPRAZOL 2017 Yes [id number] TAKE ONE Univers E 40 mg EC 1-27 TABLET BY ity of tablet 00:00: MOUTH [place] 00 EVERY DAY Medical Branch XIXAN 550 2016-08 Yes [id number] TAKE ONE Univers mg tablet 1-27 TABLET BY ity o f 00:00: MOUTH 2 [place] 00 TIMES A Medical DAY Branch PANTOPRAZOL 2017 Yes [id number] TAKE ONE Univers E 40 mg EC 1-27 TABLET BY ity of tablet 00:00: MOUTH [place] 00 EVERY DAY Medical Branch XIXAN 550 2016-08 Yes [id number] TAKE ONE Univers mg tablet 1-27 TABLET BY ity o f 00:00: MOUTH 2 [place] TIMES A Medical DAY Branch PANTOPRAZOL 2017 Yes [id number] TAKE ONE Univers E 40 mg EC 1-27 TABLET BY ity of tablet 00:00: MOUTH [place] 00 EVERY DAY Medical Branch XIXAN 550 2016-08 Yes [id number] TAKE ONE Univers mg tablet 1-27 TABLET BY ity o f 00:00: MOUTH 2 [place] TIMES A Medical DAY Branch PANTOPRAZOL 2017 Yes [id number] TAKE ONE Univers E 40 mg EC 1-27 TABLET BY ity of tablet 00:00: MOUTH [place] 00 EVERY DAY Medical Branch XIXAN 550 2016-08 Yes [id number] TAKE ONE Univers mg tablet 1-27 TABLET BY ity o f 00:00: MOUTH 2 [place] TIMES A Medical DAY Branch PANTOPRAZOL 2017- Yes [id number] TAKE ONE Univers E 40 mg EC 1-27 TABLET BY ity of tablet 00:00: MOUTH [place] 00 EVERY DAY Medical Branch XIXAN 550 2016-08 Yes [id number] TAKE ONE Univers mg tablet 1-27 TABLET BY ity o f 00:00: MOUTH 2 [place] 00 TIMES A Medical DAY Branch PANTOPRAZOL 2017 Yes [id number] TAKE ONE Univers E 40 mg EC 1-27 TABLET BY ity of tablet 00:00: MOUTH [place] 00 EVERY DAY Medical Branch XIFAXAN 550 2016-08 Yes [id number] TAKE ONE Univers mg tablet 1-27 TABLET BY ity o f 00:00: MOUTH 2 [place] 00 TIMES A Medical DAY Branch PANTOPRAZOL 2017 Yes [id number] TAKE ONE Univers E 40 mg EC 1-27 TABLET BY ity of tablet 00:00: MOUTH [place] 00 EVERY DAY Medical Branch XIFAXAN 550 2016-08 Yes [id number] TAKE ONE Univers mg tablet 1-27 TABLET BY ity o f 00:00: MOUTH 2 [place] TIMES A Medical DAY Branch PANTOPRAZOL 2017 Yes [id number] TAKE ONE Univers E 40 mg EC 1-27 TABLET BY ity of tablet 00:00: MOUTH [place] 00 EVERY DAY Medical Branch XIFAXAN 550 2016-08 Yes [id number] TAKE ONE Univers mg tablet 1-27 TABLET BY ity o f 00:00: MOUTH 2 [place] TIMES A Medical DAY Branch PANTOPRAZOL 2017 Yes [id number] TAKE ONE Univers E 40 mg EC 1-27 TABLET BY ity of tablet 00:00: MOUTH [place] EVERY DAY Medical Branch XIFAXAN 550 2016-08 Yes [id number] TAKE ONE Univers mg tablet 1-27 TABLET BY ity o f 00:00: MOUTH 2 [place] TIMES A Medical DAY Branch PANTOPRAZOL 2017 Yes [id number] TAKE ONE Univers E 40 mg EC 1-27 TABLET BY ity of tablet 00:00: MOUTH [place] EVERY DAY Medical Branch XIFAXAN 550 2016-08 Yes [id number] TAKE ONE Univers mg tablet 1-27 TABLET BY ity o f 00:00: MOUTH 2 [place] TIMES A Medical DAY Branch PANTOPRAZOL 2017 Yes [id number] TAKE ONE Univers E 40 mg EC 1-27 TABLET BY ity of tablet 00:00: MOUTH [place] 00 EVERY DAY Medical Branch XIFAXAN 550 2016-08 Yes [id number] TAKE ONE Univers mg tablet 1-27 TABLET BY ity o f 00:00: MOUTH 2 [place] TIMES A Medical DAY Branch XIFAXAN 550 2016-08 Yes [id number] TAKE ONE Univers mg tablet 1-27 TABLET BY ity o f 00:00: MOUTH 2 [place] TIMES A Medical DAY Branch PANTOPRAZOL 2017 Yes [id number] TAKE ONE Univers E 40 mg EC 1-27 TABLET BY ity of tablet 00:00: MOUTH [place] 00 EVERY DAY Medical Branch PANTOPRAZOL 2017 Yes [id number] TAKE ONE Univers E 40 mg EC 1-27 TABLET BY ity of tablet 00:00: MOUTH [place] 00 EVERY DAY Medical Branch XIFAXAN 550 2016-08 Yes [id number] TAKE ONE Univers mg tablet 1-27 TABLET BY ity o f 00:00: MOUTH 2 [place] 00 TIMES A Medical DAY Branch PANTOPRAZOL 2016-08 Yes [id number] TAKE ONE Univers E 40 mg EC 1-27 TABLET BY ity of tablet 00:00: MOUTH [place] 00 EVERY DAY Medical Branch FUROSEMIDE 2019- No TAKE 1 Univ ers 40 mg 5-10 07-26 TABLET BY ity of tablet 00:00: 00:00 MOUTH [place] 00 :00 EVERY DAY Medical Branch acetaminoph Yes 1{tbl} Take 1 Un linda [...] by ity of tablet 00:00: mouth 3 (three) Medical times Branch daily. acetaminoph 2017 Yes 1{tbl} Take 1 Un linda en-codeine [...] follow package directions spironolact 2015-08 2019- No [id number] 25mg Take 1 Univers one 09-13 07-26 tablet by ity of (SPIRONOLAC 00:00: 00:00 [place] TONE[place] 25 mg 00 :00 daily. Medica l tablet Branch furosemide 2015-08 Yes 40mg Take 40 mg U nivers 40 mg 0-10 by mouth. ity of tablet 00:00: Medical Branch furosemide 2015-08 Yes 40mg Take 40 mg U nivers 40 mg 0-10 by mouth. ity of tablet 00:00: Medical Branch furosemide 2015-08 Yes 40mg Take 40 mg U nivers 40 mg 0-10 by mouth. ity of tablet 00:00: [place] [facility] furosemide 2016- Yes 40mg Take 40 mg U nivers 40 mg 0-10 by mouth. ity of tablet 00:00: [place] [facility] furosemide 2016 Yes 40mg Take 40 mg U nivers 40 mg 0-10 by mouth. ity of tablet 00:00: [place] [facility] furosemide 2016 Yes 40mg Take 40 mg U nivers 40 mg 0-10 by mouth. ity of tablet 00:00: [place] [facility] furosemide 2016 Yes 40mg Take 40 mg U nivers 40 mg 0-10 by mouth. ity of tablet 00:00: [address] furosemide 2016 Yes 40mg Take 40 mg U nivers 40 mg 0-10 by mouth. ity of tablet 00:00: [address] furosemide 2015-08 Yes 40mg Take 40 mg U nivers 40 mg 0-10 by mouth. ity of tablet 00:00: [place] [facility] furosemide 2016 Yes 40mg Take 40 mg U nivers 40 mg 0-10 by mouth. ity of tablet 00:00: [place] [facility] furosemide 2015-08 Yes 40mg Take 40 mg U nivers 40 mg 0-10 by mouth. ity of tablet 00:00: [address] furosemide 2016- Yes 40mg Take 40 mg U nivers 40 mg 0-10 by mouth. ity of tablet 00:00: [address] furosemide 2015-08 Yes 40mg Take 40 mg U nivers 40 mg 0-10 by mouth. ity of tablet 00:00: [address] furosemide 2016 Yes 40mg Take 40 mg U nivers 40 mg 0-10 by mouth. ity of tablet 00:00: [address] Allopurinol Allopurinol Yes Fernando 2 tablets [facility] Clinics Immunizations Ordered Filled Immunization Date Status Comments [facility] e Immunization Name Name Influenza Virus 2018-04-21 Completed Universit y of Vaccine (3+ yrs) 00:00:00 [facility] Influenza Virus 2018-04-21 Completed Universit y of Vaccine (3+ yrs) 00:00:00 [facility] Influenza Virus 2018-04-21 Completed Universit y of Vaccine (3+ yrs) 00:00:00 [facility] Influenza Virus 2018-04-21 Completed Universit y of Vaccine (3+ yrs) 00:00:00 [facility] Influenza Virus 2018-04-21 Completed Universit y of Vaccine (3+ yrs) 00:00:00 [facility] Influenza Virus 2018-04-21 Completed Universit y of Vaccine (3+ yrs) 00:00:00 [facility] Influenza Virus 2018-04-21 Completed Universit y of Vaccine (3+ yrs) 00:00:00 [facility] Influenza Virus 2018-04-21 Completed Universit y of Vaccine (3+ yrs) 00:00:00 [facility] Influenza Virus 2018-04-21 Completed Universit y of Vaccine (3+ yrs) 00:00:00 [facility] Influenza Virus 2018-04-21 Completed Universit y of Vaccine (3+ yrs) 00:00:00 [facility] Influenza Virus 2018-04-21 Completed Universit y of Vaccine (3+ yrs) 00:00:00 [facility] Influenza Virus 2018-04-21 Completed Universit y of Vaccine (3+ yrs) 00:00:00 [facility] Influenza Virus 2018-04-21 Completed Universit y of Vaccine (3+ yrs) 00:00:00 [facility] Influenza Virus 2018-04-21 Completed Universit y of Vaccine (3+ yrs) 00:00:00 [facility] Branch Pneumococcal 13 2016-05-08 Completed Universit y of Conjugate, PCV13 00:00:00 [facility] dical (Prevnar 13) Branch Pneumococcal 13 2016-05-08 Completed Universit y of Conjugate, PCV13 00:00:00 [facility] dical (Prevnar 13) Branch Pneumococcal 13 2016-05-08 Completed Universit y of Conjugate, PCV13 00:00:00 [facility] dical (Prevnar 13) Branch Pneumococcal 13 2016-05-08 Completed Universit y of Conjugate, PCV13 00:00:00 [facility] dical (Prevnar 13) Branch Pneumococcal 13 2016-05-08 Completed Universit y of Conjugate, PCV13 00:00:00 [facility] dical (Prevnar 13) Branch Pneumococcal 13 2016-05-08 Completed Universit y of Conjugate, PCV13 00:00:00 [facility] dical (Prevnar 13) Branch Pneumococcal 13 2016-05-08 [...] 00:00:00 [place] Me dical (Prevnar 13) Branch Vital Signs Vital Name Observation Time Observation Value Comments Source Body height 2019-12-22 19:24:00 149.9 cm Universi ty [facility] Body weight 2019-12-22 19:24:00 86.183 kg Universi ty [facility] BMI 2019-12-22 19:24:00 38.38 kg/m2 Universi ty [facility] Body height 2019-12-22 19:24:00 149.9 cm Universi ty [facility] Body weight 2019-12-22 19:24:00 86.183 kg Universi ty [facility] BMI 2019-12-22 19:24:00 38.38 kg/m2 Universi ty [facility] Body height 2019-12-15 20:02:00 149.9 cm Universi ty [facility] Body weight 2019-12-15 20:02:00 86.183 kg Universi ty [facility] BMI 2019-12-15 20:02:00 38.38 kg/m2 Universi ty [facility] Body height 2019-12-08 21:00:00 149.9 cm Universi ty [facility] Body weight 2019-12-08 21:00:00 86.183 kg Universi ty of [facility] BMI 2019-12-08 21:00:00 38.38 kg/m2 Universi ty of [facility] Systolic blood 2019-10-22 15:08:00 99 mm[Hg] Univer sity of pressure [facility] Diastolic blood 2019-10-22 15:08:00 67 mm[Hg] Unive rsity of pressure [facility] Body height 2019-10-22 15:08:00 149.9 cm Universi ty of [facility] Body weight 2019-10-22 15:08:00 86.183 kg Universi ty of [facility] BMI 2019-10-22 15:08:00 38.38 kg/m2 Universi ty of [facility] Body height 2019-09-24 17:22:00 149.9 cm Universi ty of [facility] Body weight 2019-09-24 17:22:00 86.183 kg Universi ty of [facility] BMI 2019-09-24 17:22:00 38.38 kg/m2 Universi ty of [facility] Systolic blood 2019-03-09 20:19:00 113 mm[Hg] Univer sity of [facility] Diastolic blood 2019-03-09 20:19:00 64 mm[Hg] Unive rsity of [facility] Heart rate 2019-03-09 20:19:00 68 /min Universi ty of [facility] Body temperature 2019-03-09 20:19:00 37.06 [facility] Respiratory rate 2019-03-09 20:19:00 18 /min [facility] Oxygen saturation in 2019-03-09 20:19:00 100 /min [facility] Arterial blood by [facility] Pulse oximetry Branch [facility] 2019-03-06 20:06:00 38.78 kg/m2 Universi ty of [facility] Body height 2019-03-06 20:06:00 149.9 cm Universi ty of [facility] Body weight 2019-03-06 20:06:00 87.091 kg Universi ty of [facility] Procedures Procedure Date / Time Performing Clinician Source Performed MEDICATION CORRESPONDENCE 2019-10-26 05:01:00 Doctor Unassigned, [facility] [place] Medical Branch BASIC METABOLIC PANEL 2019-03-09 08:41:00 [facility] (NA, K, CL, CO2, GLUCOSE, [facility] BUN, CREATININE, CA) URINALYSIS 2019-03-09 01:27[facility] 2019-03-09 01:27[facility] HE[facility]EL 2019-03-08 09:29:00 [facility] ([id number]) (ALB,T.PRO,BILI [facility] T,BU/BC,ALT,AST,ALK PHOS) BASIC METABOLIC PANEL 2019-03-08 09:29:00 [facility] (NA, K, CL, CO2, GLUCOSE, [facility] BUN, CREATININE, CA) CBC WITH DIFFERENTIAL 2019-03-08 09:29[facility] 2019-03-07 18:50[facility] 2019-03-07 18:49:[facility] VW 2019-03-07 18:30:[facility] BASIC METABOLIC PANEL 2019-03-07 09:38:00 [facility] (NA, K, CL, CO2, GLUCOSE, [facility] BUN, CREATININE, CA) PROFILE / HEMOGRAM 2019-03-07 09:38:00 [facility] GLYCOSYLATED HEMOGLOBIN 2019-03-07 09:38:00 Lizy Taylor [facility] (A1C) [facility] PROTHROMBIN TIME / INR 2019-03-07 09:38:00 [facility] PROFILE / HEMOGRAM 2019-03-07 05:42:00 [facility] LACT[facility] ACID WHOLE BLOOD 2019-03-07 00:14:00 Jaimie Garcia [facility] COLONOSCOPY (ENDO) 2019-03-06 20:18:08 Indra Motta [facility] FLEXIBLE SIGMOIDOSCOPY 2019-03-06 20:08:00 Calos Anand [facility] HEPATIC FUNCTION PANEL 2019-03-06 19:36:00 Vin Cruz Ochoa [facility] ([id number]) (ALB,T.PRO,BILI [facility] T,BU/BC,ALT,AST,ALK PHOS) PROFILE / HEMOGRAM 2019-03-06 19:36:00 Vin Cruz [facility] PROTHROMBIN TIME / INR 2019-03-06 19:36:00 Blue Cruzaham Ochoa [facility] LACTIC ACID WHOLE BLOOD 2019-03-06 19:36:00 Vin Cruz [facility] AMMONIA, PLASMA 2019-03-06 08:09:00 Akanksha Jensen [facility] CT ABDOMEN PELVIS WO 2019-03-06 07:12:38 Akanksha Jensen [facility] CONTRAST [facility] URINALYSIS 2019-03-06 06:15:00 Akanksha Jensen [facility] LIPASE 2019-03-06 06:11:00 Akanksha Jensen [facility] COMP. METABOLIC PANEL 2019-03-06 06:11:00 Akanksha Jensen [facility] ([id number]) [facility] CBC WITH DIFFERENTIAL 2019-03-06 06:11:00 Akanksha Jensen [facility] PROTHROMBIN TIME / INR 2019-03-06 06:11:00 Akanksha Jensen [facility] ACTIVATED PARTIAL 2019-03-06 06:11:00 Akanksha Jensen [facility] THRMPLAS JENNY [facility] TYPE AND SCREEN 2019-03-06 06:11:00 Akanksha Jensen [facility] NOTICE OF PRIVACY 2019-03-06 05:34:54 Doctor Marlyn, [facility] PRACTICES [place] [facility] CONSENT/REFUSAL FOR 2019-03-06 05:34:21 Doctor Marlyn, [facility] DIAGNOSIS AND TREATMENT [place] [facility] HOSPITAL ADMISSION 2019-03-06 05:01:00 Doctor Unassigned, [facility] [place] Medical Branch Encounters Start End Encounter Admission Attending Care Care Encounter Source Date/Time Date/Time Type Type Clinicians Facility Department ID 2021-08-30 2021-08-[address] [facility] [id number] [place] 00:00:00 00:00:00 MEGHAN 703 Method i 2021-08-29 2021-08-29 Outpatient Christiana LEVY, [facility] [id number] Univers 13:00:00 13:00:00 LIBBY [id number] [facility] 2021-08-29 2021-08-29 Outpatient Christiana LEVY [facility] [id number] Univers 13:00:00 13:00:00 LIBBY [facility] 2021-08-29 2021-08-29 Outpatient GALTRISH, [facility] [id number] [place] 00:00:00 00:00:00 CALOS 444 Method i 2021-08-17 2021-08-25 Inpatient DESTINI CUETO [facility] [id number] [place] 00:00:00 00:00:00 262 Method i 2021-08-21 2021-08-21 Inpatient [facility] [id number] [place] 00:00:00 00:00:00 096 Method i 2021-08-10 2021-08-[address] [facility] 064 [id number] [place] 00:00:00 00:00:00 MEGHAN 396 Method i 2021-07-28 2021-07-28 ambulatory [facility]MLC [facility] [id number] [facility] 00:00:00 00:00:00 [facility] 2021-07-12 2021-07-12 ambulatory STLMLC STLMLC [id number] LALITA [facility] 00:00:00 00:00:00 [facility] 2021-06-28 2021-06-28 Emergency NUJAIME, [place] [address] [id number] [place] 00:00:00 00:00:00 KAYCEE 786 Method i 2021-06-18 2021-06-21 Inpatient DINAKAR, [place] [id number] [place] 00:00:00 00:00:[address] CU[address] 2021-06-08 2021-06-08 Outpatient [facility] [id number] [place] 00:00:00 00:00:[address] 2021-05-31 2021-06-02 Inpatient CHELA, [facility] 012 [id number] [place] 00:00:00 00:00:00 ANDRES [address] 2021-05-24 2021-05-27 Inpatient ROLANDO, [facility] [id number] [place] 00:00:00 00:00:00 CUAUHTEMOC [address] 2021-05-23 2021-05-23 Outpatient [facility] [id number] [facility] 2021-05-19 2021-05-19 Outpatient [facility] [id number] [facility] 2021-05-01 2021-05-01 Outpatient [facility] [id number] [facility] 2021-04-26 2021-04-26 Outpatient [facility] [id number] [facility] 2021-04-26 2021-04-26 Outpatient [facility] [id number] [facility] 2021-04-26 2021-04-26 Outpatient [facility] [id number] [facility] 2021-01-13 2021-01-13 Outpatient [facility] [id number] [facility] 2020-12-13 2020-12-13 Outpatient [facility] [id number] [facility] 2020-11-22 2020-11-23 Outpatient [facility] [id number] 00:00:00 00:00:00 BARCENAS, [address] 2020-11-17 2020-11-17 Outpatient STLMLC STLMLC [id number] [facility] 00:00:00 00:00:00 [facility] 2020-11-02 2020-11-02 Outpatient GALATI, [facility] [id number] 00:00:00 00:00:00 CALOS [address] 2020-11-02 2020-11-02 Outpatient GALATI, [facility] [id number] 00:00:00 00:00:00 CALOS [address] 2020-10-26 2020-10-26 Outpatient TELLO, [facility] [id number] [place] 00:00:00 00:00:00 AGUSTÍN [address] 2020-10-26 2020-10-26 Outpatient TELLO, [facility] [id number] [place] 00:00:00 00:00:00 AGUSTÍN [address] 2020-10-23 2020-10-24 Inpatient DINAKAR, [facility] 098 [id number] 00:00:00 00:00:00 CUAUHTEMOC [address] 2020-10-11 2020-10-11 Outpatient STLMLC ST[facility]C [id number] [facility] 00:00:00 00:00:00 [facility] 2020-10-09 2020-10-09 Emergency HOLCOMB, [facility] 064 [id number] [place] 00:00:00 00:00:00 ATIF [address] 2020-10-03 2020-10-03 Outpatient STLMLC STL[facility]C [id number] [facility] 00:00:00 00:00:00 [facility] 2020-09-19 2020-09-21 Inpatient DESTINI CUETO [facility] 064 [id number] [place] 00:00:00 00:00:[address] 2020-09-14 2020-09-14 Outpatient STLMLC STLMLC [id number] [facility] 00:00:00 00:00:00 [facility] 2020-08-31 2020-09-02 Inpatient ROLANDO, [facility] [id number] 00:00:00 00:00:00 CUAUHTEMOC [address] 2020-08-10 2020-08-13 Inpatient CHELA, [facility] 012 [id number] [place] 00:00:00 00:00:00 ANDRES [address] 2020-08-09 2020-08-09 Emergency YING, [facility] 064 [id number] [place] 00:00:00 00:00:00 KAYCEE [address] 2020-08-08 2020-08-08 Emergency ANASTASIABEL, [facility] 064 [id number] [place] 00:00:00 00:00:00 NOBLE [address] 2020-07-27 2020-07-27 Outpatient STLMLC STLMLC [id number] [facility]er 00:00:00 00:00:00 [facility] 2020-07-18 2020-07-18 Outpatient [facility] [id number] 00:00:00 00:00:[address] 2020-07-04 2020-07-07 Inpatient DESTINI CUETO [facility] 064 [id number] [place] 00:00:00 00:00:[address] 2020-06-28 2020-06-28 Outpatient [facility] [id number] [facility] 2020-06-20 2020-06-20 Outpatient [facility] [id number] [facility] 2020-05-30 2020-06-03 Inpatient DESTINI CUETO [facility] 064 [id number] [place] 00:00:00 00:00:[address] 2020-05-27 2020-05-27 Outpatient YALAMANCHIL [facility] [id number] [place] 00:00:00 00:00:00 YIFAN Torres [address] 2020-05-20 2020-05-20 Outpatient [facility] [id number] [facility] 2020-05-13 2020-05-17 Inpatient MARYBETH, [facility] 064 [id number] 00:00:00 00:00:00 MERCY [facility] 2020-04-13 2020-04-21 Inpatient YOJANA [facility] 064 [id number] [place] 00:00:00 00:00:00 JUNO [address] 2020-04-13 2020-04-13 [facility] [id number] [facility] 16:02:00 16:02:00 t [employer] [facility] Clinics 2020-04-13 2020-04-13 [facility] [id number] 09:33:00 09:33:00 t [employer] [facility] 2020-04-05 2020-04-05 [facility] [id number] [facility] 09:10:00 09:10:00 t [employer] [employer] [facility] 2020-04-04 2020-04-04 [facility] [id number] 10:58:00 10:58:00 t [employer] [employer] [facility] 2020-04-04 2020-04-04 [facility] [id number] 10:00:00 10:00:00 t [place] [employer] [facility] 2020-03-17 2020-03-19 Inpatient TING [facility] 064 [id number] [place] 00:00:00 00:00:00 Fausto BARCENAS[address] 2020-03-16 2020-03-16 [facility] [id number] 11:12:00 11:12:00 t [employer] [facility] 2020-03-14 2020-03-14 Outpatient JACQUELIN [facility] [id number] 00:00:00 00:00:00 EBONY [address] 2020-03-10 2020-03-10 [facility] [id number] [facility] 13:18:00 13:18:00 [place] [address] Luke s - [employer] [facility] 2020-03-07 2020-03-07 [facility] [id number] 16:07:00 16:07:00 [place] [address] Luke s - Drive [facility] 2020-03-04 2020-03-04 [facility] [id number] 11:00:00 11:00:00 [place] [address] [place] s - Drive [facility] 2020-03-04 2020-03-04 [facility] [id number] 11:00:00 11:00:00 [place] [employer] [place] - [employer] [facility] 2020-03-04 2020-03-04 Outpatient MEAGAN, [facility] [id number] 00:00:00 00:00:00 JAYASIMHA [address] 2020-02-18 2020-02-21 Inpatient YORK, [facility] 064 [id number] [place] 00:00:00 00:00:00 ANDRES [address] 2020-01-18 2020-01-20 Inpatient DINAKAR, [facility] 588 [id number] 00:00:00 00:00:00 CUAUHTEMOC 8[address] 2020-01-07 2020-01-11 Inpatient YORK, [facility] 064 [id number] [place] 00:00:00 00:00:00 ANDRES 087 [address] 2019-12-29 2019-12-29 [facility] [id number] 07:03:00 07:03:00 t [place] [employer] [facility] 2019-12-23 2019-12-25 Inpatient TING [facility] 064 [id number] [place] 00:00:00 00:00:00 SWAPNA [address] 2019-12-23 2019-12-23 Outpatient JACQUELIN, [facility] [id number] 00:00:00 00:00:00 AHMED [address] 2019-12-22 2019-12-22 Office HERMELINDA Corrigan 1.2.840.114 [id number] 14:08:03 14:56:41 Visit [facility] S Health [id number] Surgical 4.2.7.2.686 Specialti [id number] es Tahir [place] 2019-12-22 2019-12-22 [facility] 1.2.840.114 [id number] Univers 14:08:03 14:56:41 Visit Lita S Health [id number] it y of Surgical 4.2.7.2.686 Brent as Specialti [id number] Oh dical es 198 [facility] 2019-12-22 2019-12-22 [facility] [id number] Univers 14:15:00 14:15:00 LITA [id number] [facility] 2019-12-22 2019-12-22 [facility] [id number] Univers 14:15:00 14:15:00 [facility] 2019-12-15 2019-12-15 [facility] 1.2.840.114 [id number] Univers 14:57:28 15:12:28 Visit [facility] Health [id number] it y of Surgical 4.2.7.2.686 Brent as Specialti [id number] Oh dical es 198 [facility] 2019-12-15 2019-12-15 [facility] [id number] Univers 15:00:00 15:00:00 LITA [facility] 2019-12-15 2019-12-15 [facility] [id number] Univers 15:00:00 15:00:00 [facility] 2019-12-08 2019-12-08 [facility] 1.2.840.114 [id number] Univers 15:45:23 16:15:13 Visit Lita S Health [id number] it y of Surgical 4.2.7.2.686 Brent as Specialti [id number] Oh dical es 198 [facility] 2019-12-08 2019-12-08 [facility] [id number] Univers 16:00:00 16:00:00 [facility] 2019-12-08 2019-12-08 Outpatient Christiana CORRIGAN [facility] [id number] Univers 13:45:00 13:45:00 LITA [id number] ity [facility] 2019-12-08 2019-12-08 [facility] [id number] Univers 13:45:00 13:45:00 [facility] 2019-10-30 2019-10-30 [facility] [id number] -[id number] Univers 10:15:00 10:15:00 LITA ity [facility] 2019-10-30 2019-10-30 [facility] [id number] Univers 10:15:00 10:15:00 [facility] 2019-10-26 2019-10-26 Orders Doctor KIRIT 1.2.840.114 [id number] Univers 00:00:00 00:00:00 Only Unassigned, MICHAEL 350.1.13.10 ity of [facility] 4.2.7.2.686 Brent as [id number] [address] 2019-10-22 2019-10-22 [facility] [id number] -[id number] Univers 16:15:00 16:15:00 LITA [id number] [facility] 2019-10-22 2019-10-22 [facility] [id number] Univers 16:15:00 16:15:00 [facility] 2019-10-22 2019-10-22 [facility] 1.2.840.114 [id number] Univers 10:06:57 10:56:32 Visit [facility] [id number] it y of Surgical 4.2.7.2.686 Brent as Specialti [id number] Oh dical 198 [facility] 2019-10-22 2019-10-22 [facility]patient [facility] [id number] Univers 10:15:00 10:15:00 [facility] 2019-10-12 2019-10-15 Inpatient CHELATHE [facility] [id number] 00:00:00 00:00:00 ANDRES 906 [address] i 2019-09-24 2019-09-24 [facility] 1.2.840.114 [id number] Univers 11:21:26 11:41:20 Visit [facility] [id number] it y of Surgical 4.2.7.2.686 Brent as Specialti [id number] Oh dical [address] [place] 2019-09-24 2019-09-24 [facility] [id number] Univers 11:15:00 11:41:20 [facility] 2019-09-01 2019-09-03 Inpatient YORK, [facility] [id number] 00:00:00 00:00:00 ANDRES 637 [address] i 2019-07-20 2019-07-20 [facility] [id number] 14:02:00 14:02:00 t [employer] [facility] Medicine Outpati ent Clinics 2019-07-16 2019-07-16 [facility] [id number] 13:15:00 13:15:00 t [employer] [facility] 2019-06-16 2019-06-18 Inpatient YORK, [facility] [id number] 00:00:00 00:00:00 ANDRES [address] 2019-05-07 2019-05-08 Outpatient DARCY, UMAR [facility] [id number] [place] 00:00:00 00:00:00 691 [address] i 2019-04-23 2019-04-23 Outpatient GALATI, [facility] [id number] 00:00:00 00:00:00 CALOS 089 Method i 2019-04-23 2019-04-23 Outpatient JACQUELIN, [facility] [id number] 00:00:00 00:00:00 AHMED 724 [address] i 2019-04-15 2019-04-15 [facility] [id number] 14:19:00 14:19:00 t [employer] [facility] Clin[facility] 2019-04-09 2019-04-09 [facility] [id number] 14:00:00 14:00:00 [place] - [employer] [facility] Medicine Medicine Outpati ent Clinics 2019-03-10 2019-03-10 Transition Bennie Ma 1.2.840.114 [id number] Univers 00:00:00 00:00:00 of Care Anabell Almaguer 350.1.13.10 it y of [place] 4.2.7.2.686 [facility] [id number] [facility] [address] 2019-03-06 2019-03-09 [facility] Akanksha Jensen 1.2.840. 114 [id number] Univers 00:42:03 16:11:00 Encounter Indra Motta 350.1.13.1 0 ity of [facility] 4.2.7.2.686 [place] [id number] [facility] [address] 2019-01-21 2019-01-21 [facility] [id number] [facility] 19:21:56 22:21:00 MARTELL ity of [facility] 2018-09-09 2018-09-09 [facility] [id number] 14:45:00 14:45:00 [place] - [employer] [facility] Medicine Outpati ent Clinics 2018-04-15 2018-04-15 [facility] [id number] [facility] 12:02:00 12:02:00 t [place] - [employer] [facility] Medicine Medicine Outpati ent Clinics 2018-02-19 2018-02-19 [facility] [id number] 15:08:00 15:08:00 [place] Pre[place] - [employer] [facility] Medicine Medicine Outpati ent Clinics 2018-01-24 2018-01-24 [facility] [id number] 11:15:00 11:15:00 t [place] s - [employer] [facility] Out[facility] Clinics Results Test Description Test Time Test Comments Results Result Comments Source SARS-CoV-2 (COVID-19) RNA [Presence] in Respiratory sp ecimen by 2021-08-23 20:48:05 GUSTAVO with probe detection Test Item Value Reference Range Interpretation Comme nts SARS-CoV-2 (COVID-19) RNA [Presence] in Respiratory Not detected No t-Detected specimen by GUSTAVO with probe detection (test code = 90118-4) 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 (test code = 84199-1) Whether the patient has symptoms related to condition of interest (test code = 68820-6) Patient was hospitalized because of this condition (test code = 76358-1) Whether the patient was admitted to intensive care unit (ICU) for condition of interest (test code = 17573-3) Whether patient resides in a congregate care setting (test code = 76781-5) SARS-CoV-2 (COVID-19) RNA [Presence] in Respiratory specimen by GUSTAVO with probe [id number] 23:59:30 Test Item Value Reference Range Interpretation Comments SARS-CoV-2 (COVID-19) RNA Not detected Not-Detected [Presence] in Respiratory specimen by GUSTAVO with probe detection (test code = 10128-5) 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 (test code = 95404-5) Whether the patient has symptoms related to condition of interest (test code = 25235-9) Patient was hospitalized because of this condition (test code = 68504-7) Whether the patient was admitted to intensive care unit (ICU) for condition of interest (test code = 28287-4) Whether patient resides in a congregate care setting (test code = 15782-7) status (test code = 08215-6) SARS-CoV-2 (COVID-19) RNA [Presence] in Respiratory specimen by GUSTAVO with probe [id number] 14:46:31 Test Item Value Reference Range Interpretation Comments SARS-CoV-2 (COVID-19) RNA Not detected Not-Detected [Presence] in Respiratory specimen by GUSTAVO with probe detection (test code = 16271-1) 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 (test code = 52248-3) Whether the patient has symptoms related to condition of interest (test code = 67901-0) Patient was hospitalized because of this condition (test code = 79439-4) Whether the patient was admitted to intensive care unit (ICU) for condition of interest (test code = 10856-4) Whether patient resides in a congregate care setting (test code = 97042-2) status (test code = 12661-2) SARS-CoV-2 (COVID-19) RNA [Presence] in Respiratory specimen by GUSTAVO with probe [id number] 19:52:10 Test Item Value Reference Range Interpretation Comments SARS-CoV-2 (COVID-19) RNA Not detected Not-Detected [Presence] in Respiratory specimen by GUSTAVO with probe detection (test code = 07441-7) 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 (test code = 87375-8) Whether the patient has symptoms related to condition of interest (test code = 52074-7) Patient was hospitalized because of this condition (test code = 41655-5) Whether the patient was admitted to intensive care unit (ICU) for condition of interest (test code = 35137-0) Whether patient resides in a congregate care setting (test code = 89937-5) status (test code = 07702-9) SARS-CoV-2 (COVID-19) RNA [Presence] in Respiratory specimen by GUSTAVO with probe dpkqjfcmb5432-11-48 19:31:11 Test Item Value Reference Range Interpretation Comments SARS-CoV-2 (COVID-19) RNA Not detected Not-Detected [Presence] in Respiratory specimen by GUSTAVO with probe detection (test code = 71107-4) 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 (test code = 46635-3) Whether the patient has symptoms related to condition of interest (test code = 79860-4) Patient was hospitalized because of this condition (test code = 05038-9) Whether the patient was admitted to intensive care unit (ICU) for condition of interest (test code = 21206-3) Whether patient resides in a congregate care setting (test code = 29977-8) status (test code = 86939-9) SARS-CoV-2 (COVID-19) RNA [Presence] in Respiratory specimen by GUSTAVO with probe zzopkpgat7303-50-96 02:26:38 Test Item Value Reference Range Interpretation Comments SARS-CoV-2 (COVID-19) RNA Not detected Not-Detected [Presence] in Respiratory specimen by GUSTAVO with probe detection (test code = 79625-2) SARS-CoV-2 (COVID-19) RNA [Presence] in Respiratory specimen by GUSTAVO with probe yvrzdezeq0075-48-76 21:10:32 Test Item Value Reference Range Interpretation Comments SARS-CoV-2 (COVID-19) RNA Not detected Not-Detected [Presence] in Respiratory specimen by GUSTAVO with probe detection (test code = 91599-5) SARS-CoV-2 (COVID-19) RNA [Presence] in Respiratory specimen by GUSTAVO with probe prjjdakzd1306-95-27 19:03:37 Test Item Value Reference Range Interpretation Comments SARS-CoV-2 (COVID-19) RNA Not detected Not-Detected [Presence] in Respiratory specimen by GUSTAVO with probe detection (test code = 13884-4) SARS-CoV-2 (COVID-19) RNA [Presence] in Respiratory specimen by GUSTAVO with probe nmfadeqbf6551-12-48 05:36:17 Test Item Value Reference Range Interpretation Comments SARS-CoV-2 (COVID-19) RNA Not detected Not-Detected [Presence] in Respiratory specimen by GUSTAVO with probe detection (test code = 24982-1) SARS-CoV-2 (COVID-19) IgG+IgM Ab [Presence] in Serum or Plasma by Immunoassay 2020-08-13 09:52:00 Test Item Value Reference Range Interpretation Comments SARS-CoV-2 (COVID-19) IgG+IgM Ab Not detected [Presence] in Serum or Plasma by Immunoassay (test code = 39894-9) SARS-CoV-2 (COVID-19) RNA [Presence] in Respiratory specimen by GUSTAVO with probe eojttunpd0106-83-62 04:46:40 Test Item Value Reference Range Interpretation Comments SARS-CoV-2 (COVID-19) RNA [Presence] Detected Not-Detected in Respiratory specimen by GUSTAVO with probe detection (test code = 63407-0) SARS-CoV-2 (COVID-19) RNA [Presence] in Respiratory specimen by GUSTAVO with probe gsdyxufyf1478-68-51 00:55:48 Test Item Value Reference Range Interpretation Comments SARS-CoV-2 (COVID-19) RNA Not detected Not-Detected [Presence] in Respiratory specimen by GUSTAVO with probe detection (test code = 27092-6) SARS-CoV-2 (COVID-19) RNA [Presence] in Respiratory specimen by GUSTAVO with probe vabqsqflw7954-03-31 08:17:26 Test Item Value Reference Range Interpretation Comments SARS-CoV-2 (COVID-19) RNA Not detected Not-Detected [Presence] in Respiratory specimen by GUSTAVO with probe detection (test code = 86896-7) SARS-CoV-2 (COVID-19) RNA [Presence] in Respiratory specimen by GUSTAVO with probe lfzolzian4375-72-35 00:04:18 Test Item Value Reference Range Interpretation Comments SARS-CoV-2 (COVID-19) RNA Not detected Not-Detected [Presence] in Respiratory specimen by GUSTAVO with probe detection (test code = 64875-0) SARS-CoV-2 (COVID-19) RNA [Presence] in Respiratory specimen by GUSTAVO with probe obwgozoyn2321-02-50 04:41:17 Test Item Value Reference Range Interpretation Comments SARS-CoV-2 (COVID-19) RNA Not detected Not-Detected [Presence] in Respiratory specimen by GUSTAVO with probe detection (test code = 20436-5) SARS-CoV-2 (COVID-19) RNA [Presence] in Respiratory specimen by GUSTAVO with probe gvxoogjab6469-36-93 04:13:39 Test Item Value Reference Range Interpretation Comments SARS-CoV-2 (COVID-19) RNA Not detected Not-Detected [Presence] in Respiratory specimen by GUSTAVO with probe detection (test code = 32027-4) URINE [id number] 20:48:00 Test Item Value Reference Range Interpretation Comments URINE CULTURE (test > 100,000 CFU/mL mixed code = 630-4) aerobic organisms - suggests endogenous microbial contamination [facility] (NA, K, CL, CO2, GLUCOSE, BUN, CREATININE, CA)2019-03-09 09:38:00 Test Item Value Reference Range Interpretation Comments NA (test code = 142 mmol/L 135-145 8955256143) K (test code = 3.8 mmol/L 3.5-5 9518283168) CL (test code = 120 mmol/L 98-108 H 2430294020) CO2 TOTAL (test code = 19 mmol/L 23-31 L 1135484246) AGAP (test code = 2-16 7436608948) BUN (test code = 16 mg/dL 7-23 3753052352) GLUCOSE (test code = 91 mg/dL 70-110 8897846936) CREATININE (test code = 1.21 mg/dL 0.5-1.04 H 0027519103) CALCIUM (test code = 9.0 mg/dL 8.6-10.6 3884931525) eGFR Calculation mL/min/1.73m2 (Non-) (test code = 8578739413) eGFR Calculation mL/min/1.73m2 () (test code = 7724227990) REJI (test code = REJI) Association of [...] tests). Lab Interpretation Abnormal (test code = 16203-9) [facility] 02:12:00 Test Item Value Reference Range Interpretation Comments APPEARANCE (test code = Clear Clear 4149314272) COLOR (test code = Yellow Yellow 9007379191) PH (test code = 4.8-8.0 8764843454) SP GRAVITY (test code = 1.003-1.030 2229811894) GLU U QUAL (test code = Normal Normal 1315999516) BLOOD (test code = Negative Negative 8224628012) KETONES (test code = Negative Negative 5902995767) PROTEIN (test code = Negative Negative 2887-8) UROBILIN (test code = 2.0 mg/dL Normal A Errone ous false 3247460563) urobilinogen layton s been indicated by e test librarian special collections.? Review all positive urobilinogen re lative to serum biliru bin results. BILIRUBIN (test code = Negative Negative 6606340056) NITRITE (test code = Negative Negative 2004548806) LEUK BETTINA (test code = Negative Negative 8394425049) RBC/HPF (test code = See_Comment [Autom ated message] 2353394023) The system [employer] generated this result transmitted ref erence range: 0 - 3 HP F. The reference range was not used to int erpret this result as normal/abnormal . WBC/HPF (test code = See_Comment [Autom ated message] 4947091798) The system [employer] generated this result transmitted ref erence range: 0 - 5 HP F. The reference range was not used to int erpret this result as normal/abnormal . BACTERIA (test code = Negative Negative 5326936128) MUCOUS (test code = Slight Negative LPF A 1552871872) SQ EPITH (test code = See_Comment H [Auto mated message] 6109721316) The system [employer] generated this result transmitted ref erence range: <=2 HPF. The reference range was not used to int erpret this result as normal/abnormal . Lab Interpretation Abnormal (test code = 44806-0) [facility] [id number] 13:55:31 No acute cardiopulmonary abnormality. Mildly displaced right posterolateral 6 rib fracture. Antonieta Torres MD., have reviewed this study and agree with the abovereport.EXAM: XR CHEST 1 VW HISTORY: encephalopathy COMPARISON: None FINDINGS: Mild pulmonary vascular congestion. No focal consolidation, p leuraleffusion or pneumothorax is seen. The cardiac silhouette is normal in size. No acute bony abnormality. Mildly displaced left posterolateral 6 ribfracture. [facility], Radiant Results Inft User - 03/08/2019 8:55 AM CDTEXAM: XR CHEST 1 VWHISTORY: encephalopathy COMPARISON: NoneFINDINGS:Mild pulmonary v ascular congestion. No focal consolidation, pleuraleffusion or pneumothorax is seen. The cardiac silhouette is normal in size.No acute bony abnormality. Mildly displaced left posterolateral 6 ribfracture.IMPRESSIONNo acute cardiopulmonary abnormality.Mildly displaced right posterolateral 6 rib fracture.Ramesh Torres MD., have reviewed this study and agree with the abovereport.[facility] (NA, K, CL, CO2, GLUCOSE, BUN, CREATININE, CA)2019-03-08 11:04:00 Test Item Value Reference Range Interpretation Comments NA (test code = 143 mmol/L 135-145 6412822240) K (test code = 3.9 mmol/L 3.5-5 1201517098) CL (test code = 121 mmol/L 98-108 H 5798864786) CO2 TOTAL (test code = 19 mmol/L 23-31 L 7445183138) AGAP (test code = 2-16 2213357211) BUN (test code = 21 mg/dL 7-23 4003771674) GLUCOSE (test code = 98 mg/dL 70-110 9130416867) CREATININE (test code = 1.36 mg/dL 0.5-1.04 H 6615358959) CALCIUM (test code = 8.8 mg/dL 8.6-10.6 2800698161) eGFR Calculation mL/min/1.73m2 (Non-) (test code = 7393229217) eGFR Calculation mL/min/1.73m2 () (test code = 6389421525) REJI (test code = REJI) Association of [...] tests). Lab Interpretation Abnormal (test code = 31298-3) [facility]AT[facility] FUNCTION PANEL (87466) (ALB,T.PRO,BILI T,BU/BC,ALT,AST,ALK PHOS)2019-03-08 11:03:00 Test Item Value Reference Range Interpretation Comments TOTAL BILI (test code = 8122420791) 1.2 mg/dL 0.1-1.1 H BILI UNCON (test code = 5000623965) 0.9 mg/dL 0.1-1.1 BILI CONJ (test code = 0344916690) 0.0 mg/dL 0-0.3 T PROTEIN (test code = 7659929559) 6.6 g/dL 6.3-8.2 ALBUMIN (test code = 5676202707) 3.3 g/dL 3.5-5 L ALK PHOS (test code = 5859517113) 78 U/L 34-122 ALT(SGPT) (test code = 2482197727) 33 U/L 9-51 AST(SGOT) (test code = 0057154090) 39 U/L 13-40 Lab Interpretation (test code = Abnormal 34437-3) [facility]CB WITH [id number] 10:27:00 Test Item Value Reference Range Interpretation Comments WBC (test code = See_Comment [Automated 2890-2) message] The sy stem which generated this result transmitted reference range : 4.30 - 11.10 10*3/?L. The reference range was not used to interpret this result as normal/abnormal . RBC (test code = See_Comment L [Automated 141-8) message] The sy stem which generated this [...] (test code = 50.3 fL 39-49.9 H 76864-3) RDW-CV (test code = 16.6 % 12-15.5 H 788-0) PLT (test code = See_Comment L [Automated 777-3) message] The sy stem which generated this result transmitted reference range : 166 - 358 10*3/ ?L. The reference r sharon was not used to interpret this result as normal/abnormal . MPV (test code = 10.7 fL 9.5-12.9 38163-6) NRBC/100 WBC (test See_Comment [Automat ed code = 4353181121) message] The system which generated this result transmitted reference range : 0.0 - 10.0 /100 WBCs. The refer ence range was not u sed to interpret th is result as normal/abnormal . NRBC x10^3 (test code <0.01 See_Comment [Auto mated = 3157042697) message] The s ystem which generated this result transmitted reference range : 10*3/?L. The reference range was not used to interpret this result as normal/abnormal . GRAN MAT (NEUT) % 59.5 % (test code = 770-8) IMM GRAN % (test code 0.40 % = 5254070620) LYMPH % (test code = 24.0 % 736-9) MONO % (test code = 11.4 % 5905-5) EOS % (test code = 4.0 % 713-8) BASO % (test code = 0.7 % 706-2) GRAN MAT x10^3(ANC) 3.25 10*3/uL 1.88-7.09 (test code = 0404993544) IMM GRAN x10^3 (test <0.03 0-0.06 code = 6497670701) LYMPH x10^3 (test code 1.31 10*3/uL 1.32-3.29 L = 731-0) MONO x10^3 (test code 0.62 10*3/uL 0.33-0.92 = 742-7) EOS x10^3 (test code = 0.22 10*3/uL 0.03-0.39 711-2) BASO x10^3 (test code 0.04 10*3/uL 0.01-0.07 = 704-7) Lab Interpretation Abnormal (test code = 57214-6) [facility]PROFILE / [id number] 19:46:00 Test Item Value Reference Range Interpretation Comments WBC (test code = See_Comment L [Automated message] 6690-2) The system [employer] generated this result transmitted ref erence range: 4.30 - 1 1.10 10*3/?L. The reference range was not used to int erpret this result as normal/abnormal . RBC (test code = 789-8) See_Comment L [Au tomated message] The system [employer] generated this result transmitted ref erence range: [...] See_Comment L [Au tomated message] The system [employer] generated this result transmitted ref erence range: 166 - 35 8 10*3/?L. The reference range was not used to int erpret this result as normal/abnormal . MPV (test code = 10.8 fL 9.5-12.9 86280-2) RDW-CV (test code = 17.2 % 12-15.5 H 788-0) RDW-SD (test code = 53.5 fL 39-49.9 H 22202-7) NRBC x10^3 (test code = <0.01 See_Comment [Au tomated message] 6689781739) The system [employer] generated this result transmitted ref erence range: 10*3/?L. The reference range was not used to int erpret this result as normal/abnormal . NRBC/100 WBC (test code See_Comment [Au tomated message] = 9976620709) The system [employer] generated this result transmitted ref erence range: 0.0 - 10 .0 /100 WBCs. The reference range was not used to int erpret this result as normal/abnormal . IPF % (test code = 1.5 % 1.3-7.7 Platelet count 4312620201) measured by fluorescence me thod. Lab Interpretation Abnormal (test code = 84208-4) [facility] CampusAMMONIA, [id number] 19:15:00 Test Item Value Reference Range Interpretation Comments AMMONIA (test code = 2031946074) 113 umol/L 9-33 H Lab Interpretation (test code = Abnormal 32435-2) [facility] CampusGLYCOSYLATED HEMOGLOBIN (A1C)2019-03-07 18:17:00 Test Item Value Reference Range Interpretation Comments HGB A1C (test code = 4548-4) 5.1 % 4-6 Lab Interpretation (test code = Normal 53104-4) [facility] CampusBASI METABOLIC PANEL (NA, K, CL, CO2, GLUCOSE, BUN, CREATININE, CA)2019-03-07 10:45:00 Test Item Value Reference Range Interpretation Comments NA (test code = 141 mmol/L 135-145 4102464491) K (test code = 4.1 mmol/L 3.5-5 2468558075) CL (test code = 115 mmol/L 98-108 H 6340530368) CO2 TOTAL (test code = 21 mmol/L 23-31 L 3848539162) AGAP (test code = 2-16 5474979896) BUN (test code = 34 mg/dL 7-23 H 1275184869) GLUCOSE (test code = 96 mg/dL 70-110 3647687657) CREATININE (test code = 1.68 mg/dL 0.5-1.04 H 3720007497) CALCIUM (test code = 8.5 mg/dL 8.6-10.6 L 1995220242) eGFR Calculation mL/min/1.73m2 (Non-) (test code = 2843665440) eGFR Calculation mL/min/1.73m2 () (test code = 8692139847) REJI (test code = REJI) Association of [...] tests). Lab Interpretation Abnormal (test code = 42905-3) [facility] CampusProthrombin Time / [id number] 10:10:00 Test Item Value Reference Range Interpretation Comments PROTIME PATIENT (test See_Comment H [Auto mated message] code = 5964-2) The system [employer] generated this result transmitted ref erence range: 10.1 - 1 2.6 Seconds. The reference range was not used to int erpret this result as normal/abnormal . INR (test code = 6301-6) Nor mal INR <1.1; Warfarin Therap eutic range 2.0 to 3. 0 or 2.5 to 3.5, dep ending upon the indica tions. Lab Interpretation (test Abnormal code = 19482-4) [facility]PROFILE / [id number] 10:08:00 Test Item Value Reference Range Interpretation Comments WBC (test code = See_Comment [Automated message] 6690-2) The system [employer] generated this result transmitted ref erence range: 4.30 - 1 1.10 10*3/?L. The reference range was not used to int erpret this result as normal/abnormal . RBC (test code = 789-8) See_Comment L [Au tomated message] The system [employer] generated this result transmitted ref erence range: [...] See_Comment L [Au tomated message] The system [employer] generated this result transmitted ref erence range: 166 - 35 8 10*3/?L. The reference range was not used to int erpret this result as normal/abnormal . MPV (test code = 10.3 fL 9.5-12.9 53269-6) RDW-CV (test code = 17.2 % 12-15.5 H 788-0) RDW-SD (test code = 51.3 fL 39-49.9 H 21503-5) NRBC x10^3 (test code = <0.01 See_Comment [Au tomated message] 2273961611) The system [employer] generated this result transmitted ref erence range: 10*3/?L. The reference range was not used to int erpret this result as normal/abnormal . NRBC/100 WBC (test code See_Comment [Au tomated message] = 2091055387) The system [employer] generated this result transmitted ref erence range: 0.0 - 10 .0 /100 WBCs. The reference range was not used to int erpret this result as normal/abnormal . IPF % (test code = 2.1 % 1.3-7.7 Platelet count 6684567729) measured by fluorescence me thod. Lab Interpretation Abnormal (test code = 85428-0) [facility] CampusPROFILE / [id number] 06:11:00 Test Item Value Reference Range Interpretation Comments WBC (test code = See_Comment L [Automated message] 6690-2) The system [employer] generated this result transmitted ref erence range: 4.30 - 1 1.10 10*3/?L. The reference range was not used to int erpret this result as normal/abnormal . RBC (test code = 789-8) See_Comment L [Au tomated message] The system [employer] generated this result transmitted ref erence range: [...] See_Comment L [Au tomated message] The system [employer] generated this result transmitted ref erence range: 166 - 35 8 10*3/?L. The reference range was not used to int erpret this result as normal/abnormal . MPV (test code = 10.6 fL 9.5-12.9 99159-5) RDW-CV (test code = 17.1 % 12-15.5 H 788-0) RDW-SD (test code = 52.5 fL 39-49.9 H 61190-0) NRBC x10^3 (test code = <0.01 See_Comment [Au tomated message] 2096843167) The system [employer] generated this result transmitted ref erence range: 10*3/?L. The reference range was not used to int erpret this result as normal/abnormal . NRBC/100 WBC (test code See_Comment [Au tomated message] = 0716932003) The system [facility] generated this result transmitted ref erence range: 0.0 - 10 .0 /100 WBCs. The reference range was not used to int erpret this result as normal/abnormal . IPF % (test code = 1.6 % 1.3-7.7 Platelet count 7788841931) measured by fluorescence me thod. Lab Interpretation Abnormal (test code = 35709-2) [facility] CampusLactic Acid Whole [id number] 00:23:00 Test Item Value Reference Range Interpretation Comments LACTIC ACID (test code = 1.92 mmol/L 0.5-2.2 4000723459) Lab Interpretation (test code = Normal 77033-5) [facility] CampusPROFILE / [id number] 20:24:00 Test Item Value Reference Range Interpretation Comments WBC (test code = See_Comment [Automated message] 6690-2) The system [employer] generated this result transmitted ref erence range: 4.30 - 1 1.10 10*3/?L. The reference range was not used to int erpret this result as normal/abnormal . RBC (test code = 789-8) See_Comment L [Au tomated message] The system [employer] generated this result transmitted ref erence range: [...] See_Comment L [Au tomated message] The system [employer] generated this result transmitted ref erence range: 166 - 35 8 10*3/?L. The reference range was not used to int erpret this result as normal/abnormal . MPV (test code = 10.7 fL 9.5-12.9 80390-5) RDW-CV (test code = 17.1 % 12-15.5 H 788-0) RDW-SD (test code = 51.1 fL 39-49.9 H 98180-5) NRBC x10^3 (test code = <0.01 See_Comment [Au tomated message] 0318943942) The system [employer] generated this result transmitted ref erence range: 10*3/?L. The reference range was not used to int erpret this result as normal/abnormal . NRBC/100 WBC (test code See_Comment [Au tomated message] = 7784022536) The system [employer] generated this result transmitted ref erence range: 0.0 - 10 .0 /100 WBCs. The reference range was not used to int erpret this result as normal/abnormal . IPF % (test code = 1.9 % 1.3-7.7 Platelet count 1168329074) measured by fluorescence me thod. Lab Interpretation Abnormal (test code = 77849-1) [facility] CampusHEPATIC FUNCTION PANEL (32513) (ALB,T.PRO,BILI T,BU/BC,ALT,AST,ALK PHOS)2019-03-06 20:05:00 Test Item Value Reference Range Interpretation Comments TOTAL BILI (test code = 3150493729) 1.1 mg/dL 0.1-1.1 BILI UNCON (test code = 8203447038) 0.6 mg/dL 0.1-1.1 BILI CONJ (test code = 3444760836) 0.0 mg/dL 0-0.3 T PROTEIN (test code = 4835512749) 6.1 g/dL 6.3-8.2 L ALBUMIN (test code = 4279534416) 3.1 g/dL 3.5-5 L ALK PHOS (test code = 7777855415) 71 U/L 34-122 ALT(SGPT) (test code = 5157231999) 25 U/L 9-51 AST(SGOT) (test code = 2690758636) 36 U/L 13-40 Lab Interpretation (test code = Abnormal 55354-2) [facility] CampusPROTHROMBIN TIME / [id number] 19:58:00 Test Item Value Reference Range Interpretation Comments PROTIME PATIENT (test See_Comment H [Auto mated message] code = 5964-2) The system [employer] generated this result transmitted ref erence range: 10.1 - 1 2.6 Seconds. The reference range was not used to int erpret this result as normal/abnormal . INR (test code = 6301-6) Nor mal INR <1.1; Warfarin Therap eutic range 2.0 to 3. 0 or 2.5 to 3.5, dep ending upon the indica tions. Lab Interpretation (test Abnormal code = 53574-5) [facility] CampusLactic Acid Whole [id number] 19:45:00 Test Item Value Reference Range Interpretation Comments LACTIC ACID (test code = 4.22 mmol/L 0.5-2.2 H 6727655635) Lab Interpretation (test code = Abnormal 47567-8) [facility] CampusCT ABDOMEN PELVIS WO [id number] 12:52:38 Bilateral nephrolithiasis without hydronephrosis. Left renal [...] normal in height and otherwise normal alignment. [facility], Radiant Results Inft User - 03/06/2019 7:52 [...] reviewed this study and agree with theabove report.[facility] CampusAMMONIA, [id number] 08:32:00 Test Item Value Reference Range Interpretation Comments AMMONIA (test code = 158 umol/L 9-33 H Slight hemolysis 4981803688) Lab Interpretation (test Abnormal code = 70823-6) [facility] CampusType and Screen - ONCE [id number] 07:42:21 Test Item Value Reference Range Interpretation Comments ABO & RH (test code A Positive Performe d at [facility] = 20) Laboratory Serv [facility] [address] [place], [place] [phone] Free: [phone] A No. [id number] IAT (test code = Negative Performed a t [facility] 1185) Laboratory [facility] [address] [place] [phone] Free: [phone] A No. [id number] [facility] CampusaPTT2019-07-26 06:52:00 Test Item Value Reference Range Interpretation Comments APTT Patient (test See_Comment [Automat ed code = 3173-2) message] The system which generated this result transmitted reference range : 23 - 38 Seconds . The reference range was not used to interpr et this result as normal/abnormal . REJI (test code = REJI) The [facility] patient population mean normal value for aPTT is 30 seconds. Lab Interpretation Normal (test code = 70086-1) [facility] CampusUrinalysis2019-07-26 06:51:00 Test Item Value Reference Range Interpretation Comments APPEARANCE (test code Slightly Cloudy Clear A = 8571908895) COLOR (test code = Yellow Yellow 7208856611) PH (test code = 4.8-8.0 0549890855) SP GRAVITY (test code 1.003-1.030 = 1729300928) GLU U QUAL (test code Negative Negative = 6618876532) BLOOD (test code = Moderate Negative A 5168940112) KETONES (test code = Negative Negative 5280130163) PROTEIN (test code = Negative Negative 2887-8) UROBILIN (test code = 0.2 mg/dL See_Comment [Auto mated 3586542309) message] The system which generated this result transmit barron reference range : 0-1.0 mg/dL. Th e reference range was not used to interpret this result as normal/abnormal . BILIRUBIN (test code Negative Negative = 6982888281) NITRITE (test code = Negative Negative 4276246174) LEUK BETTINA (test code Negative Negative = 0868319628) RBC/HPF (test code = See_Comment H [Autom ated 0436272121) message] The system which generated this result transmit barron reference range : 0 - 3 HPF. The reference range was not used to interpret this result as normal/abnormal . WBC/HPF (test code = See_Comment H [Autom ated 8594119344) message] The system which generated this result transmit barron reference range : 0 - 5 HPF. The reference range was not used to interpret this result as normal/abnormal . BACTERIA (test code = Moderate Negative A 7915406882) SQ EPITH (test code = >50 HPF 7117053664) Lab Interpretation Abnormal (test code = 06395-9) [facility] CampusComplete Metabolic [id number] 06:50:00 Test Item Value Reference Range Interpretation Comments NA (test code = 141 mmol/L 135-145 4886068945) K (test code = 4.4 mmol/L 3.5-5 4749379550) CL (test code = 111 mmol/L 98-108 H 0874973746) CO2 TOTAL (test code = 20 mmol/L 23-31 L 0488778793) AGAP (test code = 2-16 9221794111) BUN (test code = 50 mg/dL 7-23 H 5476911356) GLUCOSE (test code = 119 mg/dL 70-110 H 5487332569) CREATININE (test code = 2.40 mg/dL 0.5-1.04 H 4441771367) TOTAL BILI (test code = 1.4 mg/dL 0.1-1.1 H 2429989008) CALCIUM (test code = 9.3 mg/dL 8.6-10.6 9339341968) T PROTEIN (test code = 7.6 g/dL 6.3-8.2 5916284460) ALBUMIN (test code = 4.1 g/dL 3.5-5 9011837546) ALK PHOS (test code = 93 U/L 34-122 3945597316) ALT(SGPT) (test code = 25 U/L 9-51 9725334658) AST(SGOT) (test code = 38 U/L 13-40 5886585905) eGFR Calculation mL/min/1.73m2 (Non-) (test code = 4254038002) eGFR Calculation mL/min/1.73m2 () (test code = 7490110167) REJI (test code = REJI) Association of [...] tests). Lab Interpretation Abnormal (test code = 60484-5) [facility] CampusLipase, [id number] 06:50:00 Test Item Value Reference Range Interpretation Comments LIPASE (test code = 6897456276) 186 U/L 0-220 Lab Interpretation (test code = Normal 84645-6) [facility] CampusPROTHROMBIN TIME / [id number] 06:49:00 Test Item Value Reference Range Interpretation Comments PROTIME PATIENT (test See_Comment [Auto mated message] code = 5964-2) The system [employer] generated this result transmitted ref erence range: 12.0 - 1 4.7 Seconds. The re ference range was not u sed to interpret this result as normal/abnor mal. INR (test code = 6301-6) Nor mal INR <1.1; Warfarin Therap eutic range 2.0 to 3. 0 or 2.5 to 3.5, dep ending upon the indica tions. Lab Interpretation (test Normal code = 05837-3) [facility] CampusCB WITH [id number] 06:31:00 Test Item Value Reference Range Interpretation Comments WBC (test code = See_Comment [Automated 6690-2) message] The sy stem which generated this result transmitted reference range : 4.30 - 11.10 10*3/?L. The reference range was not used to interpret this result as normal/abnormal . RBC (test code = See_Comment L [Automated 249-8) message] The sy stem which generated this [...] RDW-SD (test code = 49.4 fL 39-49.9 75672-7) RDW-CV (test code = 16.7 % 12-15.5 H 788-0) PLT (test code = See_Comment L [Automated 777-3) message] The sy stem which generated this result transmitted reference range : 166 - 358 10*3/ ?L. The reference r sharon was not used to interpret this result as normal/abnormal . MPV (test code = 11.2 fL 9.5-12.9 73535-7) NRBC/100 WBC (test See_Comment [Automat ed code = 3810639303) message] The system which generated this result transmitted reference range : 0.0 - 10.0 /100 WBCs. The refer ence range was not u sed to interpret th is result as normal/abnormal . NRBC x10^3 (test code <0.01 See_Comment [Auto mated = 6382406145) message] The s ystem which generated this result transmitted reference range : 10*3/?L. The reference range was not used to interpret this result as normal/abnormal . GRAN MAT (NEUT) % 65.7 % (test code = 770-8) IMM GRAN % (test code 0.40 % = 6593383356) LYMPH % (test code = 21.0 % 736-9) MONO % (test code = 9.1 % 5905-5) EOS % (test code = 3.3 % 713-8) BASO % (test code = 0.5 % 706-2) GRAN MAT x10^3(ANC) 5.41 10*3/uL 1.88-7.09 (test code = 8326010850) IMM GRAN x10^3 (test 0.03 10*3/uL 0-0.06 code = 2576866731) LYMPH x10^3 (test code 1.73 10*3/uL 1.32-3.29 = 731-0) MONO x10^3 (test code 0.75 10*3/uL 0.33-0.92 = 742-7) EOS x10^3 (test code = 0.27 10*3/uL 0.03-0.39 711-2) BASO x10^3 (test code 0.04 10*3/uL 0.01-0.07 = 704-7) Lab Interpretation Abnormal (test code = 52594-3) [facility]"
[2021-09-01] MEDS ORDERED: ACETAMINOPHEN 325 MG TABLET ONE (14:48)
[2021-09-01] MEDS ORDERED: Levofloxacin500mg IV 500 MG/100 ML BAG IV ONE (14:49)
[2021-09-01] MEDS ORDERED: NA CHLORIDE 0.9% 500 ML ONE ×2 (14:49→18:31)
[2021-09-01 15:00] LABS: Absolute Lymphocytes (CBC) 0.3 K/uL (0.7-4.9); Hematocrit 28.9 % (36.0-45.0); Lymphocytes % 1.4 % (15.3-44.8); MPV 9.4 fL (7.6-11.3); Protime INR 1.73; RBC Red Blood Cell Count 2.96 M/uL (3.86-4.86)
[2021-09-01 15:14] LABS: Albumin 2.1 g/dL (3.4-5.0); Bilirubin Direct 1.1 mg/dL (0-0.2); Bilirubin Total 3.3 mg/dL (0.2-1.0); Magnesium 1.5 mg/dL (1.8-2.4); Protein, Total 5.5 g/dL (6.4-8.2); Troponin High Sensitivity 12.2 pg/mL (<58.9)
--- NOTE | 2021-09-01 15:53 | RAD REPORT ---
EXAM DESCRIPTION: RAD - Chest Single View - 09/01/2021 3:11 pm CLINICAL HISTORY: COUGH COMPARISON: Chest Single View dated 07/28/2021; Chest Single View dated 05/18/2021; Chest Single View dated 09/10/2019; Chest Single View dated 03/17/2018 FINDINGS: Lines: None. Lungs: Low lung volumes with scattered bilateral opacities. Pleural: No significant pleural effusions or pneumothorax. Cardiac: The heart size is within normal limits. Bones: No acute fractures. Other: IMPRESSION: Patchy bilateral airspace disease may reflect mild multifocal pneumonia, less likely dev eloping edema.
[2021-09-01 16:05] LABS: SARS-COV-2 RT PCR NEGATIVE (NEGATIVE)
[2021-09-01] MEDS ORDERED: FAMOTIDINE 20 MG/2 ML VIAL IV ONE (17:28)
[2021-09-01] MEDS ORDERED: MAGNESIUM SULFATE 1 gm IVPB 1 GM/100 ML BAG IV ONE (17:28)
--- NOTE | 2021-09-01 17:50 | EDPHYS ---
Physician Documentation [facility] Name: Bella Barron Age: 61 yrs Sex: Female : 1960 Arrival Date: 09/01/2021 Time: 13:42 Bed 5 Private MD: SARAH Physician James Rossi HPI: 09/01 17:41 This 61 yrs old Female presents to ER via EMS with complaints of General david Weakness. 17:41 The patient presents with abdominal pain in the upper abdomen, in the lower abdomen. david Onset: The symptoms/episode began/occurred 3 day(s) ago. weak, altered , colitis , at [facility] yesterday, given abx oral. The patient presents with confusion, decreased mental status. Onset: The symptoms/episode began/occurred 3 day(s) ago. Possible causes: low blood sugar, sepsis, the patient has had a history of a fever, reportedly as high as 101 degrees Fahrenheit. Associated signs and symptoms: Pertinent positives: abdominal pain, confusion, dizziness, nausea. Current symptoms: In the emergency department the patient's symptoms are unchanged from the initial presentation. Associated signs and symptoms: Pertinent positives: fever, nausea. Historical: - Allergies: 13:43 Iodine; ss 13:43 Phenergan; ss 13:43 Rocephin; ss - PMHx: 13:43 Cirrhosis; Colitis; Crohn's; Depression; Liver disease; needs kidney and liver ss transplant; ocd; - PSHx: 13:43 Cholecystectomy; ss - Immunization history:: Client reports receiving the 2nd dose of the Covid vaccine. - Social history:: Smoking status: Patient denies any tobacco usage or history of. - Family history:: not pertinent. ROS: 17:43 Eyes: Negative for injury, pain, redness, and discharge. david 17:43 Cardiovascular: Positive for palpitations. 17:43 Respiratory: Positive for cough, shortness of breath, at rest. 17:43 Abdomen/GI: Positive for abdominal pain, nausea, abdominal cramps. 17:43 MS/extremity: 17:43 Skin: Positive for jaundice, pallor. 17:43 Neuro: Positive for dizziness, weakness. Exam: 17:43 Constitutional: The patient appears frail, lethargic. david 17:43 Neck: Trachea: is midline with no obvious abnormalities, ROM/movement: is normal, no acute changes, Lymph nodes: no appreciated lymphadenopathy. 17:43 ECG was reviewed by the Attending Physician. 17:43 Abdomen/GI: Inspection: abdomen appears normal, Bowel sounds: active, Palpation: moderate abdominal tenderness, in all quadrants, Liver: tenderness, that is mild, Hernia: not appreciated. 17:43 Musculoskeletal/extremity: ROM: intact in all extremities, Circulation is intact in all extremities. Sensation intact. Compartment Syndrome exam of affected extremity: is normal. DVT Exam: No signs of deep vein thrombosis. no pain, no swelling, no tenderness, negative Homans' sign noted on exam, no appreciated bluish discoloration, no erythema, no increased warmth. Vital Signs: 13:42 BP 102 / 50; Pulse 85; Resp 18; Temp 101.1; Pulse Ox 98% ; Pain 0/10; ss 14:30 BP 102 / 50; Pulse 85; Resp 25 S; Pulse Ox 100% on R/A; Weight 86.18 kg (R); Height 4 jg9 ft. 11 in. (149.86 cm) (R); 15:30 BP 105 / 54; Pulse 85; Resp 23 S; Pulse Ox 99% on R/A; jg9 16:15 BP 95 / 55; Pulse 82; Resp 24 S; Pulse Ox 99% on R/A; jg9 19:15 BP 91 / 48; Pulse 79; Resp 20; Temp 98.4(O); Pulse Ox 99% on R/A; jg9 20:00 BP 101 / 51; Pulse 78; Resp 17 S; Pulse Ox 99% on R/A; al4 20:15 BP 98 / 53; Pulse 78; Resp 17 S; Pulse Ox 99% on R/A; al4 20:30 BP 100 / 53; Pulse 77; Resp 20 S; Pulse Ox 98% on R/A; al4 21:11 BP 112 / 57; Pulse 81; Resp 20 S; Pulse Ox 100% on R/A; al4 14:30 Body Mass Index 38.37 (86.18 kg, 149.86 cm) j9 NIH Stroke Scale Scores: 17:43 NIHSS Score: 0 david MDM: 14:06 Patient medically screened. david 17:46 Differential Diagnosis altered mental status, sepsis, flu. Differential Diagnosis: advid electrolyte abnormality, hypoglycemia, pneumonia, sepsis, UTI, volume depletion. Differential diagnosis: bacterial infection, URI, pneumonia UTI, meningitis, bowel obstruction, coronary artery disease, cholecystitis, Cholelithiasis, diverticulitis, gastritis, GI Bleed, Irritable bowel syndrome, Mesenteric ischemia or infarction, non-specific abd pain, pancreatitis, Peptic Ulcer Disease, Pyelonephritis, Ureterolithiasis, urinary tract infection. Data reviewed: vital signs, nurses notes, lab test result(s), EKG, radiologic studies, CT scan, plain films. Data interpreted: Pulse oximetry: on room air is 99 %. Test interpretation: by ED physician or midlevel provider: ECG, plain radiologic studies. Counseling: I had a detailed discussion with the patient and/or guardian regarding: the historical points, exam findings, and any diagnostic results supporting the discharge/admit diagnosis, lab results, the need for outpatient follow up, for definitive care, 09/01 14:06 Order name: Basic Metabolic Panel [facility] 09/01 14:06 Order name: CBC with Diff [facility] 09/01 14:06 Order name: LFT's [facility] 09/01 14:06 Order name: Magnesium; Complete Time: 17:14 [facility] 09/01 14:06 Order name: NT PRO-BNP; Complete Time: 17:14 [facility] 09/01 14:06 Order name: PT-INR; Complete Time: 17:14 [facility] 09/01 14:06 Order name: Troponin HS; Complete Time: 17:14 [facility] 09/01 14:06 Order name: Lipase; Complete Time: 17:14 [facility] 09/01 14:06 Order name: Urine Culture [facility] 09/01 14:06 Order name: Blood Culture Adult (2) [facility] 09/01 14:06 Order name: COVID-19/FLU A+B/RSV (Document "Date of Onset" if Symptomatic); Complete [facility] Time: 17:14 09/01 14:06 Order name: Procalcitonin; Complete Time: 17:14 [facility] 09/01 14:06 Order name: Lactate; Complete Time: 17:14 [facility] 09/01 14:06 Order name: AMMONIA; Complete Time: 17:14 [facility] 09/01 14:06 Order name: XRAY Chest (1 view); Complete Time: 17:14 [facility] 09/01 14:06 Order name: Basic Metabolic Panel; Complete Time: 17:14 [facility] 09/01 14:06 Order name: CBC with Automated Diff; Complete Time: 19:44 [facility] 09/01 14:06 Order name: Liver (Hepatic) Function; Complete Time: 17:14 [facility] 09/01 17:15 Order name: CT Chest Abdomen Pelvis W/O Contrast; Complete Time: 18:27 [facility] 09/01 19:14 Order name: Lactate Sepsis 2 HR Follow-up; Complete Time: 19:20 [facility] 09/01 19:15 Order name: Urine Dipstick-Ancillary; Complete Time: 19:20 [facility] 09/01 19:27 Order name: Manual Differential; Complete Time: 19:44 [facility] 09/01 14:06 Order name: EKG; Complete Time: 14:07 [facility] 09/01 14:06 Order name: Cardiac monitoring; Complete Time: 14:45 [facility] 09/01 14:06 Order name: EKG - Nurse/Tech; Complete Time: 14:45 [facility] 09/01 14:06 Order name: IV Saline Lock; Complete Time: 15:19 [facility] 09/01 14:06 Order name: Labs collected and sent; Complete Time: 14:46 [facility] 09/01 14:06 Order name: O2 Sat Monitoring; Complete Time: 14:46 [facility] 09/01 14:06 Order name: Urine Dipstick-Ancillary (obtain specimen); Complete Time: 19:27 [facility] 09/01 17:15 Order name: Gottlieb; Complete Time: 17:47 [facility] 09/01 18:59 Order name: IV Saline Lock - Large Bore; Complete Time: 19:07 [facility] EC:43 Rate is 89 beats/min. Rhythm is regular. QRS Steele is Normal. NE interval is normal. QRS david interval is normal. QT interval is prolonged at 476 msec. No Q waves. T waves are Normal. No ST changes noted. Clinical impression: NSR w/ Non-specific ST/T Changes and No evidence of ischemia. Interpreted by me. Reviewed by me. Administered Medications: 15:15 Drug: Tylenol 650 mg Route: PO; jg9 19:09 Follow up: Response: No adverse reaction; Temperature is decreased j9 15:18 Drug: NS 0.9% 500 ml Route: IV; Rate: bolus; Site: left wrist; jg9 16:30 Follow up: IV Status: Completed infusion; IV Intake: 500ml j9 15:18 Drug: levofloxacin 500 mg Volume: 100 ml; Route: IVPB; Infused Over: 60 mins; Site: jg9 left wrist; 16:30 Follow up: IV Status: Completed infusion; IV Intake: 100ml jg9 17:40 Not Given (Duplicate Order): NS 0.9% 1000 ml IV at 125 ml/hr continuous david 18:54 Drug: NS 0.9% 500 ml Route: IV; Rate: bolus; Site: right antecubital; jg9 20:25 Follow up: Response: No adverse reaction; IV Status: Completed infusion al4 18:55 Drug: SOLU-Medrol (methylPrednisoLONE) 125 mg Route: IVP; Site: right wrist; jg9 19:27 Follow up: Response: No adverse reaction jg9 20:25 Follow up: Response: No adverse reaction al4 18:56 Drug: Flagyl (metroNIDAZOLE) 500 mg Volume: 100 ml; Route: IVPB; Rate: 200 ml/hr; jg9 Infused Over: 30 mins; Site: right antecubital; 19:02 Drug: Magnesium Sulfate 1 grams Route: IVPB; Infused Over: 1 hrs; Site: right wrist; jg9 19:04 Drug: Pepcid (famotidine) 20 mg Route: IVP; Site: right antecubital; jg9 19:27 Follow up: Response: No adverse reaction jg9 19:22 Drug: NS 0.9% with KCl 20 mEq/L 1000 ml Route: IV; Rate: 125 ml/hr; Site: left wrist; jg9 20:16 Drug: NS 0.9% 1000 ml Route: IV; Rate: 1 bolus; Site: left antecubital; al4 20:58 Not Given (Patient Refused; physician awaree): Lactulose 45 grams 45 ml PO once al4 Disposition Summary: 09/01/21 17:49 Transfer Ordered Transfer Location: [facility] david Reason: Higher level of care david Condition: Stable david Problem: new david Symptoms: have improved david Accepting Physician: to [facility](09/01/21 21:30) mw2 Diagnosis - Unspecified cirrhosis of liver david - Abdominal tenderness david - Anemia, unspecified david - Left sided colitis david - Fever, unspecified david - Pneumonia, unspecified organism - BILATERAL david - Elevated white blood cell count david - Bandemia david - Dehydration david - Weakness david - UTI/ Urinary tract infection, site not specified david Forms: - Medication Reconciliation Form david - SBAR form david NIH Stroke Scale - NIH Stroke Score Date: 09/01/2021 Time: 17:43 Total Score = 0 1a. Level of Consciousness (LOC) - 0(Alert) 1b. Level of Consciousness (LOC) (Month \\T\\ Age) - 0(Both) 1c. LOC Commands (Open \\T\\ Closes Eyes/Delineator) - 0(Both) 2. Best Gaze (Lateral Gaze Paresis) - 0(Normal) 3. Visual Field Loss - 0(No visual loss) 4. Facial Palsy - 0(Normal) 5a. Left Arm: Motor (10-second hold) - 0(No drift) 5b. Right Arm: Motor (10-second hold) - 0(No drift) 6a. Left Leg: Motor (5-second hold - always test supine) - 0(No drift) 6b. Right Leg: Motor (5-second hold - always test supine) - 0(No drift) 7. Limb Ataxia (finger/nose \\T\\ heel/macias - test with eyes open) - 0(Absent) 8. Sensory Loss (pinprick arms/legs/face) - 0(Normal) 9. Best Language: Aphasia (description/naming/reading) - 0(No aphasia) 10. Dysarthria (speech clarity - read or repeat words) - 0(Normal) 11. Extinction and Inattention (visual/tactile/auditory/spatial/personal) - 0(No abnormality) Initials: [facility] Signatures: Dispatcher [employer] EDJames Lubin MD MD cha Smirch, Shelby, RN RN Anthony Rahman FNP-C COAT ROOM ATTENDANT-Martin1 Justino Adam mw2 Rohit Montoya Jennifer, RN RN jg9 Corrections: (The following items were deleted from the chart) 19:46 17:49 to [facility] 21:30 19:46 to [facility]
--- NOTE | 2021-09-01 17:50 | ER ---
Nurse's Notes [facility] Name: Bella Barron Age: 61 yrs Sex: Female : 1960 Arrival Date: 09/01/2021 Time: 13:42 Bed 5 Private MD: Diagnosis: Unspecified cirrhosis of liver;Abdominal tenderness;Anemia, unspecified;Left sided colitis;Fever, unspecified;Pneumonia, unspecified organism-BILATERAL;Elevated white blood cell count;Bandemia;Dehydration;Weakness;UTI/ Urinary tract infection, site not specified Presentation: 09/01 13:50 Chief complaint: Patient states: Not feeling well x 4 days. FEver today. HX of liver ss cirrhosis. Coronavirus screen: Client denies travel out of the [place] in the last 14 days. Ebola Screen: Patient denies exposure to infectious person. Patient denies travel to an Ebola-affected area in the 21 days before illness onset. Initial Sepsis Screen: Does the patient meet any 2 criteria? No. Patient's initial sepsis screen is negative. Does the patient have a suspected source of infection? No. Patient's initial sepsis screen is negative. Risk Assessment: Do you want to hurt yourself or someone else? Patient reports no desire to harm self or others. 13:50 Method Of Arrival: EMS: [facility] ss 13:50 Acuity: OLEG 3 ss 13:50 Onset of symptoms is unknown. jg9 Historical: - Allergies: 13:43 Iodine; ss 13:43 Phenergan; ss 13:43 Rocephin; ss - PMHx: 13:43 Cirrhosis; Colitis; Crohn's; Depression; Liver disease; needs kidney and liver ss transplant; ocd; - PSHx: 13:43 Cholecystectomy; ss - Immunization history:: Client reports receiving the 2nd dose of the Covid vaccine. - Social history:: Smoking status: Patient denies any tobacco usage or history of. - Family history:: not pertinent. Screenin:06 Abuse screen: Denies threats or abuse. Denies injuries from another. Nutritional jg9 screening: No deficits noted. Tuberculosis screening: No symptoms or risk factors identified. Fall Risk Fall in past 12 months (25 points). Secondary diagnosis (15 points) cirrhosis of liver. Assessment: 15:00 Reassessment: Patient here for generalized weakness. General: Appears in no apparent jg9 distress. Behavior is calm. Pain: Denies pain. 20:16 General: Appears in no apparent distress. Behavior is calm, flat. Pain: Denies pain. al4 Neuro: Level of Consciousness is awake, obeys commands, lethargic, Oriented to person, place, situation. Cardiovascular: Capillary refill < 3 seconds Patient's skin is warm and dry. Respiratory: Airway is patent Respiratory effort is even, unlabored, Respiratory pattern is regular, symmetrical. GI:. GI: Abd is soft Abdomen is tender to palpation Parent/caregiver reports the patient having diarrhea. : Gottlieb in place. EENT: No signs and/or symptoms were reported regarding the EENT system. Derm: No signs and/or symptoms reported regarding the dermatologic system. Musculoskeletal: No signs and/or symptoms reported regarding the musculoskeletal system. 20:26 Reassessment: attempted to call report with no answer. will try again in 15 minutes. al4 21:00 Reassessment: is aware of transfer. was given a sticky note with the al4 room number and hospital per his request. 21:31 Reassessment: Report called to AMARILIS Mendoza. al4 21:31 Reassessment: Patient is in stable condition being transported by ground EMS. Report al4 given to EMS and called to receiving RN. 21:44 Reassessment: , Jn, aware of transfer. al4 Vital Signs: 13:42 BP 102 / 50; Pulse 85; Resp 18; Temp 101.1; Pulse Ox 98% ; Pain 0/10; ss 14:30 BP 102 / 50; Pulse 85; Resp 25 S; Pulse Ox 100% on R/A; Weight 86.18 kg (R); Height 4 jg9 ft. 11 in. (149.86 cm) (R); 15:30 BP 105 / 54; Pulse 85; Resp 23 S; Pulse Ox 99% on R/A; jg9 16:15 BP 95 / 55; Pulse 82; Resp 24 S; Pulse Ox 99% on R/A; jg9 19:15 BP 91 / 48; Pulse 79; Resp 20; Temp 98.4(O); Pulse Ox 99% on R/A; jg9 20:00 BP 101 / 51; Pulse 78; Resp 17 S; Pulse Ox 99% on R/A; al4 20:15 BP 98 / 53; Pulse 78; Resp 17 S; Pulse Ox 99% on R/A; al4 20:30 BP 100 / 53; Pulse 77; Resp 20 S; Pulse Ox 98% on R/A; al4 21:11 BP 112 / 57; Pulse 81; Resp 20 S; Pulse Ox 100% on R/A; al4 14:30 Body Mass Index 38.37 (86.18 kg, 149.86 cm) jg9 NIH Stroke Scale Scores: 17:43 NIHSS Score: 0 david ED Course: 13:42 Patient arrived in ED. ss 13:43 Arm band placed on right wrist. ss 13:52 Alka Quispe, AMARILIS is Primary Nurse. jg9 13:55 Patient has correct armband on for positive identification. Bed in low position. Call jg9 light in reach. Side rails up X 1. Side rails up X2. 13:59 Triage completed. ss 14:06 James Rossi MD is Attending Physician. david 15:02 LFT's Sent. jg9 15:02 CBC with Diff Sent. jg9 15:02 Basic Metabolic Panel Sent. jg9 15:05 Inserted saline lock: 22 gauge in left wrist, using aseptic technique. jg9 15:11 XRAY Chest (1 view) In Process Unspecified. EDMS 17:47 Gottlieb cath inserted, using sterile technique, 16 Fr., by ia, balloon inflated, to jg9 gravity drainage, urine specimen collected. 17:51 initiated a transfer with Britany Rose Rn from the [facility]. 18:03 CT Chest Abdomen Pelvis W/O Contrast In Process Unspecified. EDMS 18:[address] Anguiano the hospitalist refrigeration lead for [facility] with Dr. Rossi for patient transfer consultation. 18:30 administrative approval given by Kayley Rose Rn/patient has been accepted to [facility] Rm 2136/ Dr. Anguiano has accepted the patient in transfer/ report to be called to [phone]. 18:45 Inserted saline lock: 22 gauge in left antecubital area, using aseptic technique. jg9 21:22 No provider procedures requiring assistance completed. Patient transferred, IV remains al4 in place. Administered Medications: 15:15 Drug: Tylenol 650 mg Route: PO; jg9 19:09 Follow up: Response: No adverse reaction; Temperature is decreased j9 15:18 Drug: NS 0.9% 500 ml Route: IV; Rate: bolus; Site: left wrist; jg9 16:30 Follow up: IV Status: Completed infusion; IV Intake: 500ml jg9 15:18 Drug: levofloxacin 500 mg Volume: 100 ml; Route: IVPB; Infused Over: 60 mins; Site: jg9 left wrist; 16:30 Follow up: IV Status: Completed infusion; IV Intake: 100ml jg9 17:40 Not Given (Duplicate Order): NS 0.9% 1000 ml IV at 125 ml/hr continuous david 18:54 Drug: NS 0.9% 500 ml Route: IV; Rate: bolus; Site: right antecubital; jg9 20:25 Follow up: Response: No adverse reaction; IV Status: Completed infusion al4 18:55 Drug: SOLU-Medrol (methylPrednisoLONE) 125 mg Route: IVP; Site: right wrist; jg9 19:27 Follow up: Response: No adverse reaction jg9 20:25 Follow up: Response: No adverse reaction al4 18:56 Drug: Flagyl (metroNIDAZOLE) 500 mg Volume: 100 ml; Route: IVPB; Rate: 200 ml/hr; jg9 Infused Over: 30 mins; Site: right antecubital; 19:02 Drug: Magnesium Sulfate 1 grams Route: IVPB; Infused Over: 1 hrs; Site: right wrist; jg9 19:04 Drug: Pepcid (famotidine) 20 mg Route: IVP; Site: right antecubital; jg9 19:27 Follow up: Response: No adverse reaction j9 19:22 Drug: NS 0.9% with KCl 20 mEq/L 1000 ml Route: IV; Rate: 125 ml/hr; Site: left wrist; jg9 20:16 Drug: NS 0.9% 1000 ml Route: IV; Rate: 1 bolus; Site: left antecubital; al4 20:58 Not Given (Patient Refused; physician awaree): Lactulose 45 grams 45 ml PO once al4 Intake: 16:30 IV: 500ml; Total: 500ml. jg9 16:30 IV: 100ml; Total: 600ml. jg9 Output: 21:18 Urine: 120ml (Gottlieb); Total: 120ml. al4 Outcome: 17:49 ER care complete, transfer ordered by . david 21:22 Transferred by ground EMS to [facility]. al4 21:23 Transferred by ground EMS to [facility]. al4 21:30 Patient left the ED. mw2 21:30 Condition: stable al4 21:30 Discharge instructions given to patient, family, Instructed on the need for transfer, Demonstrated understanding of instructions. NIH Stroke Scale - NIH Stroke Score Date: 09/01/2021 Time: 17:43 Total Score = 0 1a. Level of Consciousness (LOC) - 0(Alert) 1b. Level of Consciousness (LOC) (Month \T\ Age) - 0(Both) 1c. LOC Commands (Open \T\ Closes Eyes/Tape Calender) - 0(Both) 2. Best Gaze (Lateral Gaze Paresis) - 0(Normal) 3. Visual Field Loss - 0(No visual loss) 4. Facial Palsy - 0(Normal) 5a. Left Arm: Motor (10-second hold) - 0(No drift) 5b. Right Arm: Motor (10-second hold) - 0(No drift) 6a. Left Leg: Motor (5-second hold - always test supine) - 0(No drift) 6b. Right Leg: Motor (5-second hold - always test supine) - 0(No drift) 7. Limb Ataxia (finger/nose \T\ heel/macias - test with eyes open) - 0(Absent) 8. Sensory Loss (pinprick arms/legs/face) - 0(Normal) 9. Best Language: Aphasia (description/naming/reading) - 0(No aphasia) 10. Dysarthria (speech clarity - read or repeat words) - 0(Normal) 11. Extinction and Inattention (visual/tactile/auditory/spatial/personal) - 0(No abnormality) Initials: david Signatures: Dispatcher [employer] EDMS James Rossi MD MD cha Smirch, Shelby, RN RN Justino Lopez mw2 Nellie Betancur Alexis al4 Alka Quisep RN RN jg9 Corrections: (The following items were deleted from the chart) 19: 14:30 BP 102 / 50; Pulse 85bpm; Resp 25bpm; Spontaneous; Pulse Ox 100% RA; jg9 jg9 20:21 20:16 GI: Parent/caregiver reports the patient having diarrhea, al4 al4 20:57 20:49 Lactulose 40 grams 45 ml PO 45 ml al4 al4
--- NOTE | 2021-09-01 18:22 | RAD REPORT ---
EXAM DESCRIPTION: CTChest Abd Pelvis Wo Con - 09/01/2021 6:04 pm CLINICAL HISTORY: Cough;Fever;Dyspnea COMPARISON: No comparisons TECHNIQUE: CT of the chest, abdomen, and pelvis was performed. All CT scans are performed using dose optimization technique as appropriate and may include automated exposure control or mA/KV adjustment according to patient size. FINDINGS: Thorax: Chest Wall: No abnormal mass Lungs: Limited by motion. Pleura: Trace pleural effusions. Jael/Mediastinum: No lymphadenopathy. Aorta/Pulmonary Arteries: Unremarkable Heart: Mild cardiomegaly. Trace pericardial effusion. Abdomen/Pelvis: Liver: Tips shunt. No focal liver lesions. Biliary: No biliary ductal dilatation. Stomach: No significant focal abnormality. Duodenum: No significant focal abnormality. Pancreas: No significant abnormality. Spleen: Borderline splenomegaly. Adrenal: No suspicious lesions. Kidney/ureter: No hydronephrosis. Left renal cyst. Retroperitoneum: No retroperitoneal adenopathy. Vascular: No aneurysm. Bowel: Brooks colonic wall thickening with multiple air-fluid levels. Small bowel is unremarkable.. Peritoneum: No ascites or free air. Bladder: Decompressed via Gottlieb catheter. Reproductive: No adnexal masses. Bones: No acute fracture. Other: n/a IMPRESSION: 1. Moderate diffuse pancolonic wall thickening which could reflect active inflammation i n this patient with history of inflammatory bowel disease. No bowel obstruction or other complicating features identified. 2. No acute findings within the chest.
[2021-09-01] MEDS ORDERED: METHYLPREDNISOLONE 125 MG INJ ONE (18:31)
[2021-09-01] MEDS ORDERED: NS KCL 20MEQ 1,000 ML IV ONE (18:31)
[2021-09-01] MEDS ORDERED: METRONIDAZOLE 500mg IVPB 500 MG/100 ML BAG IV ONE (18:32)
[2021-09-01 19:15] LABS: Urine Blood Trace-intact (Negative); Urine Glucose Negative (Negative); Urine Protein Trace (Negative); Urine Specific Gravity 1.025 (1.005-1.030); Urine pH 5.5 (5.0-7.0)
[2021-09-01 19:27] LABS: Blood Morphology Comment NOTED (NOT SEEN); Platelet Estimate DECR; Polychromasia SLIGHT
[2021-09-01] MEDS ORDERED: NA CHLORIDE 0.9% 1,000 ML ONE (20:07)
[2021-09-01] MEDS ORDERED: LACTULOSE 20 GM/30 ML UCUP ONE (20:48)
[2021-09-01 22:27] VITALS: TEMP 98.4
[2021-09-01 22:31] VITALS: BP 112/57; O2SAT 100
--- NOTE | 2021-09-02 15:14 | EKG ---
Test Date: 2021-09-01 Test Time: 14:13:17 Car Installations Supervisor: RAMONA MEASUREMENT RESULTS: Intervals: Rate: 89 [place]: 144 QRSD: 80 QT: 392 QTc: 476 [place]: P: 55 [place]: 144 QRS: 28 T: 12 INTERPRETIVE STATEMENTS: Normal sinus rhythm Prolonged QT Abnormal ECG Compared to ECG 07/28/2021 18:06:25 Prolonged QT interval now present Electronically Signed On 09-02-21 15:13:53 PHYSICIAN OFFICE ASSISTANT by Nico Caldwell
== END 2021-09-01 21:30 | disposition short-term general hospital (02) ==
LOC: ER 13:23
DX: J18.9 Pneumonia, unspecified organism (principal); E86.0 Dehydration; N39.0 Urinary tract infection, site not specified; D64.9 Anemia, unspecified; K51.50 Left sided colitis without complications; D72.825 Bandemia; R50.9 Fever, unspecified; K74.60 Unspecified cirrhosis of liver; Z88.1 Allergy status to other antibiotic agents; Z88.8 Allergy status to other drugs, medicaments and biological substances; Z91.048 Other nonmedicinal substance allergy status
CPT/HCPCS: 93005; 87040 ×2; 87088; 85025; 87086; 80048; 36415; 82140; 83735; 87205 ×2; 85610; 80076; 83605 ×2; 81003; 84484; 83690; 84145; 83880; 0241U; 71250; 74176; 71045; 51702; 99285; J3475; J7040 ×2; J7030; J2930; J3480

== ENCOUNTER 2021-10-07 20:51 | Inpatient (IN) | payer OTHER ==
[2021-10-07] MEDS ORDERED: NA CHLORIDE 0.9% 1,000 ML ONE (21:17)
[2021-10-07] MEDS ORDERED: FAMOTIDINE 20 MG/2 ML VIAL IV ONE (21:17)
[2021-10-07] MEDS ORDERED: ONDANSETRON 4 MG/2 ML VIAL ONE (21:17)
[2021-10-07 21:27] LABS: Absolute Lymphocytes (CBC) 0.6 K/uL (0.7-4.9); Lymphocytes % 5.1 % (15.3-44.8); MPV 8.1 fL (7.6-11.3)
[2021-10-07 21:32] LABS: Protime INR 1.39
[2021-10-07 21:54] LABS: Albumin 2.1 g/dL (3.4-5.0); Bilirubin Direct 1.3 mg/dL (0-0.2); Bilirubin Total 2.7 mg/dL (0.2-1.0); Potassium 3.7 mmol/L (3.5-5.1); Protein, Total 7.1 g/dL (6.4-8.2)
[2021-10-07 22:05] LABS: SARS-COV-2 RT PCR NEGATIVE (NEGATIVE)
[2021-10-07 22:50] LABS: Urine Blood Negative (Negative); Urine Glucose Negative (Negative); Urine Protein Negative (Negative); Urine Specific Gravity 1.025 (1.005-1.030)
[2021-10-07] MEDS ORDERED: Levofloxacin500mg IV 500 MG/100 ML BAG IV ONE (23:17)
[2021-10-07] MEDS ORDERED: LACTULOSE 20 GM/30 ML UCUP ONE (23:17)
[2021-10-07] MEDS ORDERED: METRONIDAZOLE 500mg IVPB 0 MG/0 ML BAG IV ONE (23:17)
[2021-10-08] MEDS ORDERED: NA CHLORIDE 0.9% 1,000 ML ONE (00:18)
--- NOTE | 2021-10-08 01:01 | ER ---
Nurse's Notes [facility] Name: Bella Barron Age: 61 yrs Sex: Female : 1960 Arrival Date: 10/07/2021 Time: 20:56 Bed 6 Private MD: Diagnosis: Colitis;UTI/ Urinary tract infection, site not specified;Dehydration Presentation: 10/07 20:56 Chief complaint: EMS states: patient just got over c diff and is having diarrhea. al4 Coronavirus screen: Vaccine status: Patient reports receiving the 2nd dose of the covid vaccine. Ebola Screen: No symptoms or risks identified at this time. Initial Sepsis Screen: Does the patient meet any 2 criteria? HR > 90 bpm. Does the patient have a suspected source of infection? No. Patient's initial sepsis screen is negative. Risk Assessment: Do you want to hurt yourself or someone else? Patient reports no desire to harm self or others. Onset of symptoms was October 07, 2021. 20:56 Method Of Arrival: EMS al4 20:56 Acuity: OLEG 3 al4 Triage Assessment: 20:59 General: Appears in no apparent distress. uncomfortable, Behavior is calm, anxious. al4 Pain: Complains of pain in abdomen. Neuro: Level of Consciousness is awake, alert, lethargic, Oriented to person, place. Cardiovascular: Capillary refill < 3 seconds Patient's skin is warm and dry. Respiratory: Airway is patent Respiratory effort is unlabored, Respiratory pattern is regular. GI: Abd is soft Abdomen is tender to palpation Reports diarrhea, nausea, vomiting. Historical: - Allergies: 20:59 Iodine; al4 20:59 Phenergan; al4 20:59 Rocephin; al4 - PMHx: 20:59 Cirrhosis; Liver disease; Depression; Crohn's; Colitis; needs kidney and liver al4 transplant; ocd; - PSHx: 20:59 Cholecystectomy; al4 - Immunization history:: Adult Immunizations up to date, Client reports receiving the 2nd dose of the Covid vaccine, Pneumococcal vaccine is up to date, Flu vaccine is up to date. - Social history:: Smoking status: Patient denies any tobacco usage or history of. Screenin:02 Abuse screen: Denies threats or abuse. Nutritional screening: No deficits noted. al4 Tuberculosis screening: No symptoms or risk factors identified. Fall Risk No fall in past 12 months (0 pts). IV access (20 points). Ambulatory Aid- None/Bed Rest/Nurse Assist (0 pts). Gait- Normal/Bed Rest/Wheelchair (0 pts) Mental Status- Oriented to own ability (0 pts). Total Schaefer Fall Scale indicates No Risk (0-24 pts). Assessment: 21:14 Reassessment: Patient appears in no apparent distress at this time. Patient and/or st1 family updated on plan of care and expected duration. Pain level reassessed. General: Appears in no apparent distress. uncomfortable, obese, unkempt. 21:46 Reassessment: the patient was told we will need urine and stool to send to the lab . st1 22:00 General: Appears in no apparent distress. uncomfortable, Behavior is listless, quiet. al4 General: patient is alert and oriented, but slow to respond and very weak. . Pain: Complains of pain in right lower quadrant. Neuro: Level of Consciousness is awake, alert, obeys commands, Oriented to person, place, time, situation. Cardiovascular: Capillary refill < 3 seconds Patient's skin is warm and dry. Respiratory: Airway is patent Respiratory effort is unlabored, Respiratory pattern is regular. GI: Abdomen is round Stools are reported to be loose. : Urine is cloudy. EENT: No signs and/or symptoms were reported regarding the EENT system. Derm: No signs and/or symptoms reported regarding the dermatologic system. Musculoskeletal: Range of motion: intact in all extremities, muscle tone 3/5 in all extremities. 22:30 Reassessment: Patient cleaned up, new linens, new gown, and warm blankets given. al4 22:50 Reassessment: Patient and/or family updated on plan of care and expected duration. Pain al4 level reassessed. 23:21 Reassessment: patient refusing medications at this time. al4 23:36 Reassessment: Patient and/or family updated on plan of care and expected duration. Pain al4 level reassessed. 23:51 Reassessment: ERP at bedside discussing plan of treatment and explaining reason for the al4 exams, medications, and treatments to patient and . 10/08 00:11 Reassessment: patient and continue to refuse antibiotic and remaining 20 mL of al4 lactulose after physician educated at bedside. 00:23 Reassessment: Patient and/or family updated on plan of care and expected duration. Pain al4 level reassessed. 00:53 Reassessment: Patient cleaned by JENNIFER Renee and myself. New brief given. al4 01:13 Reassessment: Patient and/or family updated on plan of care and expected duration. Pain al4 level reassessed. TESSIE Walton at bedside. 01:42 Reassessment: Patient is awake and alert. Patient is in no apparent distress. al4 at bedside. 01:46 Reassessment: TESSIE Walton gave patient permission to drink some water. Cup of water al4 given to patient. 02:10 Reassessment: Patient appears in no apparent distress at this time. al4 02:30 Reassessment: Cleaned patient with JENNIFER Renee. New briefs put on patient. Warm blanket al4 given. Linens and gown are clean. Vital Signs: 10/07 20:56 BP 110 / 66; Pulse 111; Resp 19; Temp 99.1; Pulse Ox 98% ; Weight 81.65 kg (R); Height al4 4 ft. 11 in. (149.86 cm) (R); 21:50 BP 128 / 28; Pulse 117; Resp 24 S; Pulse Ox 98% on R/A; al4 22:30 BP 112 / 54; Pulse 112; Resp 24 S; Pulse Ox 99% on R/A; al4 10/08 01:47 BP 93 / 62; Pulse 110; Resp 24; Pulse Ox 100% on R/A; al4 02:00 BP 105 / 49; Pulse 108; Resp 20 S; Pulse Ox 99% on R/A; al4 02:31 BP 102 / 60; Pulse 112; Resp 22 S; Pulse Ox 100% on R/A; al4 10/07 20:56 Body Mass Index 36.36 (81.65 kg, 149.86 cm) al4 ED Course: 10/07 20:56 Patient arrived in ED. al4 20:58 Ashok Romano MD is Attending Physician. [facility] 20:59 Triage completed. al4 21:00 Arm band placed on. al4 21:00 pvc monitor on. Pulse ox on. NIBP on. al4 21:02 Tingle, Chrissy, RN is Primary Nurse. st1 21:02 Patient has correct armband on for positive identification. Placed in gown. Bed in low al4 position. Call light in reach. Side rails up X2. 21:02 Inserted saline lock: 20 gauge in right antecubital area, using aseptic technique. st1 Blood collected. 21:03 Blood Culture Adult (2) Sent. st1 21:09 Basic Metabolic Panel Sent. st1 21:09 CBC with Diff Sent. st1 21:09 Hepatic Function Sent. st1 21:09 Lipase Sent. st1 21:09 AMMONIA Sent. st1 21:13 COVID-19/FLU A+B (Document "Date of Onset" if Symptomatic) Sent. st1 21:15 Protime (+inr) Sent. st1 21:15 Ptt, Activated Sent. st1 22:01 Fecal Leukocyte Stain Sent. st1 22: Ova And Parasites Sent. st1 22:01 Rotavirus Antigen Sent. st1 22:01 Stool Culture Sent. st1 22:50 Straight cath inserted, using sterile technique, 16 Fr. Specimen obtained. Returned al4 jennifer urine. Patient tolerated well. JENNIFER Renee and AMARILIS Myers assisted. 23:36 CT Abd/Pelvis - Without Contrast In Process Unspecified. EDMS 10/08 00:58 Ny Laurent MD is Hospitalizing Provider. [facility] 01:27 Urine Culture Sent. st1 01:28 No provider procedures requiring assistance completed. st1 01:57 Patient admitted, IV remains in place. al4 Administered Medications: 10/07 21:21 Drug: Pepcid (famotidine) 20 mg Route: IVP; Site: right antecubital; al4 22:00 Follow up: Response: No adverse reaction al4 21:22 Drug: NS 0.9% 1000 ml Route: IV; Rate: 1000 ml; Site: right antecubital; al4 22:52 Follow up: Response: No adverse reaction; IV Status: Completed infusion al4 21:22 Drug: Zofran (Ondansetron) 4 mg Route: IVP; Site: right antecubital; al4 22:00 Follow up: Response: No adverse reaction al4 23:30 Drug: Lactulose 20 grams {Note: patient took 10mL and refused the rest .} Volume: 30 al4 ml; Route: PO; 10/08 01:13 Follow up: Response: No adverse reaction al4 00:10 Not Given (Patient Refused; physician awaree): Flagyl (metroNIDAZOLE) 500 mg 100 ml al4 IVPB at 200 ml/hr once over 30 mins 00:11 Not Given (Patient Refused; physician aware ): LevaQUIN (levofloxacin) 500 mg 100 ml al4 IVPB once over 60 mins 00:19 Drug: NS 0.9% 500 ml Route: IV; Rate: bolus; Site: right antecubital; al4 01:13 Follow up: IV Status: Completed infusion; IV Intake: 500ml al4 Intake: 01:13 IV: 500ml; Total: 500ml. al4 Outcome: 01:01 Decision to Hospitalize by Provider. [facility] 02:04 Admitted to Med/surg room 211, Report called to AMARILIS Jean Baptiste al4 02:04 Condition: stable 02:04 Instructed on the need for admit, Demonstrated understanding of 02:50 Patient left the ED. al4 Signatures: Dispatcher [employer] EDMS Ashok Romano MD MD [facility] Rohit Montoya al4 Chrissy Horton RN RN st1 Corrections: (The following items were deleted from the chart) 10/07 21:02 20:59 Neuro: Level of Consciousness is awake, alert, obeys commands, Oriented to al4 person, place, al4 21:02 20:59 Respiratory: Airway is patent Respiratory effort is even, unlabored, Respiratory al4 pattern is regular, symmetrical, al4 21:02 20:59 GI: Abd is soft Abdomen is tender to palpation Reports diarrhea, al4 al4 21:15 21:14 Pain: st1 st1 21:53 21:30 BP 115 / 70; Pulse 107bpm; Resp 22bpm; Spontaneous; Pulse Ox 99% RA; al4 al4
--- NOTE | 2021-10-08 01:01 | EDPHYS ---
Physician Documentation [facility] Name: Bella Barron Age: 61 yrs Sex: Female : 1960 Arrival Date: 10/07/2021 Time: 20:56 Bed 6 Private MD: ED Physician Ashok Romano HPI: 10/07 21:07 This 61 yrs old Female presents to ER via EMS with complaints of Diarrhea. mh7 21:07 The patient presents to the emergency department with nausea, that is mild, vomiting, mh7 that is intermittent, described as clear fluid, diarrhea, that is intermittent, abdominal pain, of the right lower quadrant, described as intermittent, vague,\\E\\ waxing and waning, and does not radiate. Onset: The symptoms/episode began/occurred 3 day(s) ago. Possible causes: recent C. Difficile infection. The symptoms are aggravated by nothing. The symptoms are alleviated by nothing. Associated signs and symptoms: Pertinent positives: abdominal pain, diarrhea, nausea, vomiting, Pertinent negatives: anorexia, belching, constipation, fever, flatulence, GI bleeding, hematuria, vaginal discharge. Severity of symptoms: At their worst the symptoms were moderate yesterday, in the emergency department the symptoms have improved moderately. Historical: - Allergies: 20:59 Iodine; al4 20:59 Phenergan; al4 20:59 Rocephin; al4 - PMHx: 20:59 Cirrhosis; Liver disease; Depression; Crohn's; Colitis; needs kidney and liver al4 transplant; ocd; - PSHx: 20:59 Cholecystectomy; al4 - Immunization history:: Adult Immunizations up to date, Client reports receiving the 2nd dose of the Covid vaccine, Pneumococcal vaccine is up to date, Flu vaccine is up to date. - Social history:: Smoking status: Patient denies any tobacco usage or history of. ROS: 21:07 Constitutional: Negative for fever, chills, and weight loss, Eyes: Negative for injury, mh7 pain, redness, and discharge, ENT: Negative for injury, pain, and discharge, Neck: Negative for injury, pain, and swelling, Cardiovascular: Negative for chest pain, palpitations, and edema, Respiratory: Negative for shortness of breath, cough, wheezing, and pleuritic chest pain, Back: Negative for injury and pain, : Negative for injury, bleeding, discharge, and swelling, MS/Extremity: Negative for injury and deformity, Skin: Negative for injury, rash, and discoloration, Neuro: Negative for headache, weakness, numbness, tingling, and seizure, Psych: Negative for depression, anxiety, suicide ideation, homicidal ideation, and hallucinations, Allergy/Immunology: Negative for hives, rash, and allergies, Endocrine: Negative for neck swelling, polydipsia, polyuria, polyphagia, and marked weight changes, Hematologic/Lymphatic: Negative for swollen nodes, abnormal bleeding, and unusual bruising. Exam: 21:07 Head/Face: Normocephalic, atraumatic. mh7 21:07 Neck: Trachea midline, no thyromegaly or masses palpated, and no cervical lymphadenopathy. Supple, full range of motion without nuchal rigidity, or vertebral point tenderness. No Meningismus. Chest/axilla: Normal chest wall appearance and motion. Nontender with no deformity. No lesions are appreciated. 21:07 Respiratory: Lungs have equal breath sounds bilaterally, clear to auscultation and percussion. No rales, rhonchi or wheezes noted. No increased work of breathing, no retractions or nasal flaring. 21:07 Back: No spinal tenderness. No costovertebral tenderness. Full range of motion. Skin: Warm, dry with normal turgor. Normal color with no rashes, no lesions, and no evidence of cellulitis. MS/ Extremity: Pulses equal, no cyanosis. Neurovascular intact. Full, normal range of motion. 21:07 Constitutional: The patient appears in no acute distress, alert, awake, uncomfortable. 21:07 Cardiovascular: Rate: tachycardic, Rhythm: regular, Pulses: no pulse deficits are appreciated, Heart sounds: normal, normal S1and S2, Edema: is not appreciated, JVD: is not appreciated. 21:07 Abdomen/GI: Inspection: obese Bowel sounds: normal, in all quadrants, Palpation: moderate abdominal tenderness, in the right lower quadrant and left lower quadrant, mass, is not appreciated, rebound tenderness, is not appreciated, voluntary guarding, is not appreciated, involuntary guarding, is not appreciated, no appreciated organomegaly, Indicators: McBurney's point is not tender, Mi's sign is negative, Rovsing's sign is negative, Obturator sign is negative, Psoas sign is negative, Liver: no appreciated palpable abnormalities, Hernia: not appreciated. 21:07 Eyes: Pupils equal round and reactive to light, extra-ocular motions intact. Lids and mh7 lashes normal. Conjunctiva and sclera are non-icteric and not injected. Cornea within normal limits. Periorbital areas with no swelling, redness, or edema. 21:07 Neuro: Orientation: appropriate for stated age, Mentation: no acute changes, Memory: mh7 appropriate for stated age, Cranial nerves: no acute changes, Cerebellar function: is grossly normal based on the patient's age, Motor: is normal, Sensation: no obvious gross deficits, Gait: not tested. seizure activity, is not displayed by the patient, Abnormal movements: there are no abnormal movements. 21:15 ECG was reviewed by the Attending Physician. [facility] Vital Signs: 20:56 BP 110 / 66; Pulse 111; Resp 19; Temp 99.1; Pulse Ox 98% ; Weight 81.65 kg (R); Height al4 4 ft. 11 in. (149.86 cm) (R); 21:50 BP 128 / 28; Pulse 117; Resp 24 S; Pulse Ox 98% on R/A; al4 22:30 BP 112 / 54; Pulse 112; Resp 24 S; Pulse Ox 99% on R/A; al4 10/08 01:47 BP 93 / 62; Pulse 110; Resp 24; Pulse Ox 100% on R/A; al4 02:00 BP 105 / 49; Pulse 108; Resp 20 S; Pulse Ox 99% on R/A; al4 02:31 BP 102 / 60; Pulse 112; Resp 22 S; Pulse Ox 100% on R/A; al4 10/07 20:56 Body Mass Index 36.36 (81.65 kg, 149.86 cm) al4 MDM: 00:57 Differential diagnosis: Nonspecific abd pain, gastritis, diverticulitis, viral [facility] gastroenteritis, gastroenteritis. Data reviewed: vital signs, nurses notes, EMS record, old medical records, lab test result(s), amylase and lipase, CBC, electrolytes, urinalysis, EKG, radiologic studies, CT scan. Data interpreted: Pulse oximetry: on room air is 99 %. Interpretation: normal. Counseling: I had a detailed discussion with the patient and/or guardian regarding: the historical points, exam findings, and any diagnostic results supporting the discharge/admit diagnosis, lab results, radiology results, the need for further work-up and treatment in the hospital. Response to treatment: the patient's symptoms have mildly improved after treatment. 01:01 Patient medically screened. [facility] 10/07 21:01 Order name: Basic Metabolic Panel; Complete Time: 22:16 [facility] 10/07 21:01 Order name: CBC with Diff; Complete Time: 22:16 [facility] 10/07 21:01 Order name: Hepatic Function; Complete Time: 22:16 [facility] 10/07 21:01 Order name: Lipase; Complete Time: 22:16 [facility] 10/07 21:01 Order name: AMMONIA; Complete Time: 22:16 [facility] 10/07 21:01 Order name: Blood Culture Adult (2) [facility] 10/07 21:03 Order name: Protime (+inr); Complete Time: 22:16 [facility] 10/07 21:03 Order name: Ptt, Activated; Complete Time: 22:16 [facility] 10/07 21:03 Order name: Stool Culture [facility] 10/07 21:03 Order name: Fecal Leukocyte Stain [facility] 10/07 21:03 Order name: Ova And Parasites [facility] 10/07 21:03 Order name: Rotavirus Antigen [facility] 10/07 21:05 Order name: COVID-19/FLU A+B (Document "Date of Onset" if Symptomatic) [facility] 10/07 21:05 Order name: COVID-19/FLU A+B; Complete Time: 22:16 [facility] 10/07 21:01 Order name: IV Saline Lock; Complete Time: 21:03 [facility] 10/07 21:01 Order name: Labs collected and sent; Complete Time: 21:03 [facility] 10/07 21:01 Order name: Urine Dipstick-Ancillary (obtain specimen); Complete Time: 22:49 [facility] 10/07 21:01 Order name: EKG; Complete Time: 21:02 [facility] 10/07 21:04 Order name: CT Abd/Pelvis - Without Contrast [facility] 10/07 22:50 Order name: Urine Dipstick-Ancillary; Complete Time: 22:52 [facility] 10/07 22:53 Order name: Urine Culture [facility] 10/07 22:53 Order name: Urine Culture [facility] 10/08 00:45 Order name: C.difficile [facility] 10/07 21:01 Order name: EKG - Nurse/Tech; Complete Time: 21:12 mh7 EC/26 21:15 Rate is 109 beats/min. Rhythm is regular, Sinus tachycardia. QRS [place] is Normal. [place] mh7 interval is normal. QRS interval is normal. QT interval is normal. No Q waves. T waves are Normal. No ST changes noted. Clinical impression: Sinus tachycardia. Administered Medications: 21:21 Drug: Pepcid (famotidine) 20 mg Route: IVP; Site: right antecubital; al4 22:00 Follow up: Response: No adverse reaction al4 21:22 Drug: NS 0.9% 1000 ml Route: IV; Rate: 1000 ml; Site: right antecubital; al4 22:52 Follow up: Response: No adverse reaction; IV Status: Completed infusion al4 21:22 Drug: Zofran (Ondansetron) 4 mg Route: IVP; Site: right antecubital; al4 22:00 Follow up: Response: No adverse reaction al4 23:30 Drug: Lactulose 20 grams {Note: patient took 10mL and refused the rest .} Volume: 30 al4 ml; Route: PO; 10/08 01:13 Follow up: Response: No adverse reaction al4 00:10 Not Given (Patient Refused; physician awaree): Flagyl (metroNIDAZOLE) 500 mg 100 ml al4 IVPB at 200 ml/hr once over 30 mins 00:11 Not Given (Patient Refused; physician aware ): LevaQUIN (levofloxacin) 500 mg 100 ml al4 IVPB once over 60 mins 00:19 Drug: NS 0.9% 500 ml Route: IV; Rate: bolus; Site: right antecubital; al4 01:13 Follow up: IV Status: Completed infusion; IV Intake: 500ml al4 Disposition Summary: 10/08/21 01:01 Hospitalization Ordered Hospitalization Status: Inpatient Admission [facility] Provider: Ny Laurent Condition: Stable [facility] Problem: an acute exacerbation [facility] Symptoms: have improved [facility] Bed/Room Type: Standard [facility] Location: Telemetry/MedSurg (observation)(10/08/21 01:08) mw Room Assignment: 211(10/08/21 01:50) mw Diagnosis - Colitis 7 - UTI/ Urinary tract infection, site not specified mh7 - Dehydration [facility] Forms: - Medication Reconciliation Form 7 - SBAR form [facility] Signatures: Dispatcher [employer] Chrissie Duval RN RN Ashok Dixon MD MD 7 Rohit Montoya4 Corrections: (The following items were deleted from the chart) 01:08 01:01 Telemetry/MedSurg (Inpatient) 7 mw 01:08 01:01 7 mw 01:08 01:08 211 mw mw 01:50 01:08 mw mw
--- NOTE | 2021-10-08 01:44 | P.HP ---
Certification for Inpatient With expected LOS: >2 Midnights Patient will require the following post-hospital care: None Practitioner: I am a practitioner with admitting privileges, knowledge of patient current condition, hospital course, and medical plan of care. Services: Services provided to patient in accordance with Admission requirements found in Title 42 Section 412.3 of the Code of Federal Regulations <Flaquita Soares - Last Filed: 10/08/21 01:56> Patient History Date of Service: 10/08/21 Primary Care Provider: Dr. Díaz Reason for admission: Colitis, UTI, Weakness History of Present Illness: Patient is a 61-year-old female with history of C. difficile colitis recently treated, Crohn's, cirrhosis with chronic episodes of hepatic encephalopathy, stage III chronic kidney disease who presented to the ED with complaints of weakness and diarrhea. Patient's reports that she has not been feeling well since Saturday, that is when she stopped taking her antibiotics for C. difficile. He does not know which antibiotic she was taking, but does it started with a D. She has been very weak and not eatin or drinking as much. Patient started having diarrhea today. Labs in the ED significant for creatinine of 1.43 WBC 10.8, chloride 117, T bili 2.7, ammonia 71. Urine positive for nitrites. CT abdomen pelvis showed "mild to moderate motion degradation, multifocal colonic wall thickening and surrounding fat stranding suggestive of colitis, diffuse hepatic steatosis" C. difficile studies pending. She was given IV Levaquin and Flagyl in the ED along with Pepcid, Zofran, lactulose and 1.5 L of NS. Patient's is concerned about antibiotic use given recent C. difficile infection. Will consult ID for antibiotic recommendation pending C. difficile results. Home medications list reviewed: Yes - Past Medical/Surgical History Diabetic: No -: Crohn's Disease -: Chronic liver cirrhosis with TIPS procedure -: Depression with anxiety -: Neuropathy -: Insomnia -: Parkinson's -: CKD 3 -: Anemia chronic disease -: Chronic 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 -: Neuropathy -: Insomnia -: Gout -: multiple abdominal surgery due to Crohn's -: TIPS procedure -: Bleeding esophageal varices surgery Psychosocial/ Personal History: Patient disabled, lives with family - Family History Mother -: Blood disorders Notes: recently from blood disease Father -: Heart disease - Social History Smoking Status: Never smoker Alcohol use: No CD- Drugs: No Caffeine use: Yes Place of Residence: Home <Flaquita Soares - Last Filed: 10/08/21 01:56> Date of Service: 10/08/21 <Ny Laurentl - Last Filed: 10/09/21 00:34> Allergies ceftriaxone [From Rocephin] Allergy (Verified 10/08/21 03:16) Anaphylaxis iodine Allergy (Verified 10/08/21 03:16) Anaphylaxis promethazine [From Phenergan] Allergy (Verified 10/08/21 03:16) Itching Fish Allergy (Uncoded 10/10/20 20:17) Rash Home Medications: Benztropine Mesylate 0.5 mg PO BID 10/09/21 Eszopiclone [Lunesta] 3 mg PO BEDTIME 10/09/21 Nystatin [Nystop] 1 alhaji TOP TID 10/09/21 Ondansetron [Zofran (Odt)*] 4 mg PO DAILY PRN 10/09/21 Quetiapine Fumarate [Seroquel] 50 mg PO BEDTIME 10/09/21 Rifaximin [Xifaxan] 550 mg PO BID 10/09/21 Spironolactone [Aldactone*] 25 mg PO DAILY 10/09/21 Topiramate [Topamax] 50 mg PO BID 10/09/21 Tramadol HCl [Ultram] 50 mg PO BIDP PRN 10/09/21 Ubrogepant [Ubrelvy] 100 mg PO DAILY PRN 10/09/21 estradioL [Estradiol] 1 alhaji VAG BEDTIME 10/09/21 Review of Systems 10-point ROS is otherwise unremarkable General: Weakness, As per HPI Gastrointestinal: Nausea, Vomiting, Abdominal Pain, Diarrhea Neurological: Weakness, Confusion <Flaquita Soares - Last Filed: 10/08/21 01:56> Physical Examination - Physical Exam General: Alert, In no apparent distress, Other (somnolent) HEENT: Atraumatic, PERRLA, EOMI, Sclerae nonicteric Neck: Supple, 2+ carotid pulse no bruit, No LAD, Without JVD or thyroid abnormality Respiratory: Clear to auscultation bilaterally, Normal air movement Cardiovascular: Regular rate/rhythm, Normal S1 S2 Gastrointestinal: Hypoactive, No rebound, No guarding, Tenderness Musculoskeletal: No tenderness Integumentary: No rashes Neurological: Normal strength at 5/5 x4 extr, Normal tone, Normal affect - Studies Laboratory Data (last 24 hrs) 10/07/21 21:03: PT 16.0 H, INR 1.39, APTT 34.1 10/07/21 21:03: WBC 10.80, Hgb 9.3 L, Hct 28.0 L, Plt Count 101 L 10/07/21 21:03: Sodium 143, Potassium 3.7, BUN 13, Creatinine 1.43 H, Glucose 159 H, Total Bilirubin 2.7 H, AST 51 H, ALT 27, Alkaline Phosphatase 82, Lipase 76 <Flaquita Soares - Last Filed: 10/08/21 01:56> - Studies Microbiology Data (last 24 hrs): 10/07/21 22:00 Stool Fecal Leukocyte Stain - Final 10/07/21 22:00 Stool Rotavirus Antigen - Final <Ny Laurent - Last Filed: 10/09/21 00:34> Assessment and Plan - Problems (Diagnosis) (1) Colitis Current Visit: Yes Status: Acute (2) History of Clostridioides difficile colitis Current Visit: No Status: Resolved (3) UTI (urinary tract infection) Current Visit: Yes Status: Acute Qualifiers: Urinary tract infection type: acute cystitis Hematuria presence: without hematuria Qualified Code(s): N30.00 - Acute cystitis without hematuria (4) Dehydration symptoms Onset Date: 04/29/17 Current Visit: Yes Status: Acute (5) Chronic renal disease Onset Date: 05/05/18 Current Visit: Yes Status: Chronic Qualifiers: Chronic kidney disease stage: stage 3 (moderate) (6) Crohn disease Onset Date: 10/03/17 Current Visit: Yes Status: Chronic Qualifiers: Gastrointestinal tract location: small intestine Digestive disease complication type: without complication Qualified Code(s): K50.00 - Crohn's disease of small intestine without complications (7) Hepatic cirrhosis Onset Date: 10/03/17 Current Visit: Yes Status: Acute Qualifiers: Hepatic cirrhosis type: unspecified hepatic cirrhosis Ascites presence: wit hout ascites Qualified Code(s): K74.60 - Unspecified cirrhosis of liver (8) Neuropathy Current Visit: No Status: Chronic (9) Hepatic encephalopathy Onset Date: 10/03/17 Current Visit: Yes Status: Chronic - Plan -CT showed colitis. We will continue IV Flagyl and Levaquin pending ID recommendation and C. difficile studies -Patient will be on clear liquid diet as tolerated and 100 cc/h 1/2 D5 NS fluids -Patient's ammonia level was 71 in the ED. lactulose is ordered and will trend ammonia level. -Patient's urine was positive for nitrites. Urine culture sent. Patient is not having any urinary symptoms -Morphine as needed pain and Zofran as needed nausea -We will continue home medications DVT PPx: Lovenox Code: Full Discharge Plan: Home Plan to discharge in: Greater than 2 days - Advance Directives Does patient have a Living Will: No Does patient have a Durable POA for Healthcare: No - Code Status/Comfort Care Code Status Assessed: Yes (Full) Critical Care: No Time Spent Managing Pts Care (In Minutes): 70 <Flaquita Soares - Last Filed: 10/08/21 01:56> Date of Service: 10/08/21 Subjective: HPI as mentioned above Physical Examination: Vitals: Afebrile vital signs are stable Physical exam: Cardiovascular: Within normal limits. Lungs: Within normal limits Abdomen: Within normal limits Neuro: Awake, alert, oriented to person place and time Assessment: 1. C. difficile colitis 2. Hepatic encephalopathy 3. UTI Plan: 1. Continue with current plan of care as mentioned above 2. Patient gets treated at [facility] and will try to transfer <Ny Laurent - Last Filed: 10/09/21 00:34>
[2021-10-08] MEDS ORDERED: ESZOPICLONE 1 MG TAB PO PRN (03:01)
[2021-10-08] MEDS ORDERED: ONDANSETRON 4 MG/2 ML VIAL IV PRN (03:01)
[2021-10-08] MEDS ORDERED: MORPHINE 2 MG/ML SYR IV PRN (03:01)
[2021-10-08] MEDS ORDERED: LACTULOSE 20 GM/30 ML UCUP PO PRN (03:01)
[2021-10-08] MEDS ORDERED: D5 0.45 NS 1,000 ML IV SCH (03:01)
[2021-10-08 03:17] VITALS: BMI 36.7
[2021-10-08 03:52] LABS: Hematocrit 23.8 % (36.0-45.0); Lymphocytes % 8.6 % (15.3-44.8); MPV 7.8 fL (7.6-11.3); RBC Red Blood Cell Count 2.42 M/uL (3.86-4.86)
[2021-10-08 04:12] LABS: Albumin 1.8 g/dL (3.4-5.0); Bilirubin Total 2.9 mg/dL (0.2-1.0); Potassium 3.4 mmol/L (3.5-5.1); Protein, Total 6.1 g/dL (6.4-8.2)
[2021-10-08 04:16] LABS: Magnesium 1.4 mg/dL (1.8-2.4)
[2021-10-08 04:22] LABS: Thyroid Stimulating Hormone 1.41 uIU/mL (0.360-3.740)
[2021-10-08] MEDS ORDERED: Magnesium Sulfate 2gm IVPB 2 G/50 ML BAG IV ONE ×2 (04:30→13:00)
[2021-10-08] MEDS ORDERED: POTASSIUM CL SA 10 MEQ TAB PO ONE (05:00)
[2021-10-08] MEDS ORDERED: ENOXAPARIN 40 MG/0.4 ML SQ SCH (09:00)
[2021-10-08] MEDS ORDERED: MORPHINE 4 MG/ML SYR IV PRN (10:49)
[2021-10-08] MEDS: D5W 1,000 ML with NA BICARB 8.4% 50 MEQ IV SCH ×2 (14:02)
[2021-10-08] MEDS: FENTANYL CITR 100 MCG/2 ML IV PRN ×2 (18:03→22:09)
[2021-10-08] MEDS: APIXABAN 2.5 MG TABLET PO SCH (21:00)
[2021-10-09] MEDS ORDERED: MELATONIN 5 MG TABLET PO PRN (00:29)
[2021-10-09] MEDS: VANCOMYCIN ORAL SOLN 250 MG/5 ML OSYR PO SCH ×3 (01:00→17:17)
[2021-10-09 02:31] VITALS: O2SAT 100
[2021-10-09] MEDS: D5W 1,000 ML with NA BICARB 8.4% 50 MEQ IV SCH ×2 (02:54)
[2021-10-09 06:30] LABS: Absolute Lymphocytes (CBC) 1.2 K/uL (0.7-4.9); Hematocrit 24.3 % (36.0-45.0); Lymphocytes % 14.2 % (15.3-44.8); MPV 8.4 fL (7.6-11.3); RBC Red Blood Cell Count 2.46 M/uL (3.86-4.86)
[2021-10-09 07:12] LABS: Albumin 1.9 g/dL (3.4-5.0); Bilirubin Total 2.9 mg/dL (0.2-1.0); Magnesium 2.3 mg/dL (1.8-2.4); Potassium 3.1 mmol/L (3.5-5.1); Protein, Total 6.1 g/dL (6.4-8.2)
--- NOTE | 2021-10-09 08:51 | EKG ---
Test Date: 2021-10-07 Test Time: 21:08:24 Visual Arts Teacher: LUZ MEASUREMENT RESULTS: Intervals: Rate: 109 ME: 158 QRSD: 74 QT: 336 QTc: 452 [place]: P: 66 ME: 158 QRS: 41 T: 47 INTERPRETIVE STATEMENTS: Sinus tachycardia Otherwise normal ECG Compared to ECG 09/01/2021 14:13:17 Sinus rhythm no longer present Prolonged QT interval no longer present Electronically Signed On 10-09-21 08:47:52 AIRLINE PILOT FLIGHT INSTRUCTOR by Nico Caldwell
[2021-10-09] MEDS ORDERED: POTASSIUM CL SA 10 MEQ TAB PO ONE ×2 (09:00→12:08)
[2021-10-09] MEDS: LACTOBACILLUS/ACIDOPHILUS TAB PO SCH ×3 (10:19→21:43)
[2021-10-09 11:11] LABS: C.diff Antigen/Toxin Ag pos : Tox pos (NEG : NEG)
--- NOTE | 2021-10-09 12:09 | P.PN ---
Subjective Date of Service: 10/09/21 Primary Care Provider: Dr. Díaz Chief Complaint: Colitis, UTI, Weakness Subjective: No new changes (Still worried about recurrent diarrhea Still complaining of abdominal crampsintermittent) Physical Examination - Vital Signs Temperature: 98.1 F Blood Pressure: 135/79 Pulse: 93 Respirations: 18 Pulse Ox (%): 98 - Studies Microbiology Data (last 24 hrs): 10/07/21 22:00 Stool Fecal Leukocyte Stain - Final 10/07/21 22:00 Stool Rotavirus Antigen - Final Assessment And Plan Physician Review: Patient Assessed, Agree with Above Assessment and Plan Physician Review Additional Text: 10/09/21 12:05 Exam General: Alert, In no apparent distress, Other (somnolent) HEENT: Atraumatic, PERRLA, EOMI, Sclerae nonicteric Neck: Supple, 2+ carotid pulse no bruit, No LAD, Without JVD or thyroid abnormality Respiratory: Clear to auscultation bilaterally, Normal air movement Cardiovascular: Regular rate/rhythm, Normal S1 S2 Gastrointestinal: Hypoactive, No rebound, No guarding, Tenderness Musculoskeletal: No tenderness Integumentary: No rashes Neurological: Normal strength at 5/5 x4 extr, Normal tone, Normal affect - Studies CT shows colitis C. difficile toxinpositive Assessment and Plan - Problems (Diagnosis) (1) Colitis Current Visit: Yes Status: Acute (2) History of Clostridioides difficile colitis Current Visit: No Status: Resolved (3) UTI (urinary tract infection) Current Visit: Yes Status: Acute Qualifiers: Urinary tract infection type: acute cystitis Hematuria presence: without hematuria Qualified Code(s): N30.00 - Acute cystitis without hematuria (4) Dehydration symptoms Onset Date: 04/29/17 Current Visit: Yes Status: Acute (5) Chronic renal disease Onset Date: 05/05/18 Current Visit: Yes Status: Chronic Qualifiers: Chronic kidney disease stage: stage 3 (moderate) (6) Crohn disease Onset Date: 10/03/17 Current Visit: Yes Status: Chronic Qualifiers: Gastrointestinal tract location: small intestine Digestive disease complication type: without complication Qualified Code(s): K50.00 - Crohn's disease of small intestine without complications (7) Hepatic cirrhosis Onset Date: 10/03/17 Current Visit: Yes Status: Acute Qualifiers: Hepatic cirrhosis type: unspecified hepatic cirrhosis Ascites presence: without ascites Qualified Code(s): K74.60 - Unspecified cirrhosis of liver (8) Neuropathy Current Visit: No Status: Chronic (9) Hepatic encephalopathy Onset Date: 10/03/17 Current Visit: Yes Status: Chronic - Plan -Still persistent C. difficile although stopped taking antibiotics Switch IV Flagyl to p.o. every 6 for C. difficile treatment Will add probiotics If persistent diarrhea can add Imodium Continue added lactulose for mild elevated ammonia Add PT and OT consult -Patient's urine was positive for nitrites. Urine culture sent. Patient is not having any urinary symptoms -Morphine as needed pain and Zofran as needed nausea -We will continue home medications Patient requesting transfer to [facility] where she gets treatment for her liver disease, transfer initiated DVT PPx: Lovenox Code: Full Discharge Plan: Home Plan to discharge in: Greater than 2 days - Advance Directives Does patient have a Living Will: No Does patient have a Durable POA for Healthcare: No - Code Status/Comfort Care Code Status Assessed: Yes (Full) Critical Care: No
[2021-10-09] MEDS ORDERED: VANCOMYCIN ORAL SOLN 250 MG/5 ML OSYR PO SCH (12:15)
--- NOTE | 2021-10-09 13:39 | RAD REPORT ---
EXAM DESCRIPTION: CT - Abdomen Pelvis Wo Contrast - 10/08/2021 6:57 am CLINICAL HISTORY: Diarrhea;Abd pain;Nausea / vomiting. COMPARISON: CT of the chest, abdomen, and pelvis from September 01, 2021. TECHNIQUE: Serial axial CT images were obtained from above the diaphragm through the pubic symphysis without administration of intravenous or oral contrast. All CT scans are performed using dose optimization techniques as appropriate, including automated exp osure control and/or standardized protocols, where dose is adjusted for indication for exam and body habitus. FINDINGS: Mild to moderate motion degradation. Thoracic: No significant abnormality. Hepatobiliary: Diffuse hepatic steatosis. TIPS catheter in place. No obvious concerning hepatic lesio n identified in the absence of intravenous contrast. The gallbladder is nonvisualized. No biliary kellie mateo dilatation. Pancreas: Unremarkable. Spleen: Mild splenomegaly, measuring 13.2 cm in length. Gastrointestinal: Mild wall thickening in the underdistended sigmoid colon and rectum, with mild surr ounding fat stranding. No adjacent fluid collections or free air. Suspected trace fat stranding about the ascending colon. No evidence of bowel obstruction. The appendix is surgically absent. Adrenals: No abnormality identified in either adrenal gland. Renal: Interpolar left renal 5.2 cm simple cyst. No hydronephrosis or urolithiasis. Bladder/Reproductive: Unremarkable appearance of the urinary bladder by CT technique. Right ovarian s imple appearing 3.1 x 1.9 cm simple cyst. Vascular/Lymphatics: No lymphadenopathy identified by CT size criteria. Abdominal aorta is normal in caliber. Trace calcific atherosclerosis. Musculoskeletal: No concerning osseous lesion identified. Prior ventral hernia repair with suspected mesh, with no recurrent hernia identified. Unchanged disc and endplate degenerative changes at L2-3. Fluid / peritoneum: Trace pelvic free fluid. No free intraperitoneal air identified. IMPRESSION: 1. Mild to moderate motion degradation. 2. Multifocal mild colonic wall thickening and surrounding fat stranding suggestive of colitis. 3. Diffuse hepatic steatosis. TIPS catheter in place. Mild splenomegaly. 4. Left renal 5.2 cm simple cyst. 5. Trace pelvic free fluid. 6. Right ovarian simple appearing 3.1 cm cyst. Recommend prompt follow-up with pelvic ultrasound (Christiana adams: SAMUEL 2019;17(2):[id number]). 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 The interpreting r adiologist is fully responsible for the content of the report
[2021-10-09] MEDS ORDERED: ONDANSETRON 4 MG (ODT) TAB PO ONE (14:00)
--- NOTE | 2021-10-09 14:59 | P.CNS ---
Date of Consult: 10/09/21 Primary Care Provider: Dr. Díaz Chief Complaint: Colitis, UTI, Weakness History of Present Illness: The patient is a 61-year-old female with a past medical history of recent C. difficile colitis treated, Crohn's disease, cirrhosis with chronic episodes of hepatic encephalopathy, and CKD stage III who presented to the emergency department secondary to complaints of weakness and diarrhea per patient's they have been hospitalized since August. Patient first got a urinary tract infection, then developed C. difficile. States that she was treated for C. difficile and hospitalized for a week at [facility] in [place]. Infectious disease has been consulted to manage the patient's antibiotic regimen. Patient tested positive for C. difficile on 10/08, oral vancomycin was started on 10/09. Urinalysis nitrite positive, urine culture growing gram-negative rods. Initial blood cultures taken on 10/05 grew gram-positive cocci in 4 out of 4 bottles, repeat obtained on 10/09 are pending. Patient very reluctant to be put on IV antibiotics as she has been battling with C. difficile for quite some time. Of note antibiotic selection made difficult due to patient's coconcurrent C. difficile, kidney disease, and liver failure. She currently reports diarrhea, nausea, abdominal tenderness, and vomiting. She denies shortness of breath, dysuria, increased urinary frequency, change in urine odor/color, or chest pain. Allergies ceftriaxone [From Rocephin] Allergy (Verified 10/08/21 03:16) Anaphylaxis iodine Allergy (Verified 10/08/21 03:16) Anaphylaxis promethazine [From Phenergan] Allergy (Verified 10/08/21 03:16) Itching Fish Allergy (Uncoded 10/10/20 20:17) Rash Home Medications: Benztropine Mesylate 0.5 mg PO BID 10/09/21 Eszopiclone [Lunesta] 3 mg PO BEDTIME 10/09/21 Nystatin [Nystop] 1 alhaji TOP TID 10/09/21 Ondansetron [Zofran (Odt)*] 4 mg PO DAILY PRN 10/09/21 Quetiapine Fumarate [Seroquel] 50 mg PO BEDTIME 10/09/21 Rifaximin [Xifaxan] 550 mg PO BID 10/09/21 Spironolactone [Aldactone*] 25 mg PO DAILY 10/09/21 Topiramate [Topamax] 50 mg PO BID 10/09/21 Tramadol HCl [Ultram] 50 mg PO BIDP PRN 10/09/21 Ubrogepant [Ubrelvy] 100 mg PO DAILY PRN 10/09/21 estradioL [Estradiol] 1 alhaji VAG BEDTIME 10/09/21 - Past Medical/Surgical History Diabetic: No -: Crohn's Disease -: Chronic liver cirrhosis with TIPS procedure -: Depression with anxiety -: Neuropathy -: Insomnia -: Parkinson's -: CKD 3 -: Anemia chronic disease -: Chronic 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 -: Neuropathy -: Insomnia -: Gout -: multiple abdominal surgery due to Crohn's -: TIPS procedure -: Bleeding esophageal varices surgery Psychosocial/ Personal History: Patient disabled, lives with family - Family History Mother Medical History: Blood disorders Notes: recently from blood disease Father Medical History: Heart disease - Social History Smoking Status: Unknown if ever smoked Alcohol use: No CD- Drugs: No Caffeine use: Yes Place of Residence: Home Review of Systems 10-point ROS is otherwise unremarkable Physical Examination Temp Pulse Resp BP Pulse Ox 98.1 F 93 H 18 135/79 98 10/09/21 12:09 10/09/21 12:09 10/09/21 12:09 10/09/21 12:09 10/09/21 12:09 General: Obese, Other (Jaundice) HEENT: Scleral icterus Neck: Supple Respiratory: Clear to auscultation bilaterally, Normal air movement Cardiovascular: Regular rate/rhythm Capillary refill: <2 Seconds Gastrointestinal: Tenderness Musculoskeletal: No clubbing, No swelling, No contractures Integumentary: No rashes, No breakdown, No significant lesion Conclusions/Impression: Antibiotics PO vancomycin: 10/09current Assessment/plan C. difficile--recurrent -Per patient this is her second time getting seated within the past few weeks. States that she was recently treated for C. difficile at [facility] in [place], charge nurse is working to get those faxed records. In the meantime continue with p.o. vancomycin for 10 days. UTI -Urine analysis nitrite positive, urine culture growing gram-negative rods. -Patient asymptomatic at this time, no treatment needed. If treatment is initiated recommend starting after completion of oral vancomycin Positive blood cultures -Blood cultures obtained on 10/05 grew gram-positive cocci in 4 out of 4 bottles, repeat obtained on 10/09 are pending. Patient without septic presentation, no leukocytosis/fever/abnormal vital signs. -Patient is very reluctant to start antibiotics due to history of recurrent C. difficile. Will hold off on starting antibiotics until repeat blood cultures are obtained. Of note antibiotic selection made difficult due to cocaine recurrent C. difficile, history of's chronic kidney disease, and liver failure. CKD stage III Liver failure Anemia Protein caloric malnutrition: Moderate -Medical management per primary team Plan of care discussed with Dr. Reed Thank for consultation
[2021-10-09] MEDS ORDERED: HYDROCODONE/APAP 5/325 MG TAB PO ONE (15:47)
[2021-10-09] MEDS ORDERED: VANCOMYCIN 1.5 GM in NA CHLORIDE 0.9% 500 ML IVPB SCH (16:00)
[2021-10-09] MEDS: metroNIDAZOLE 250 MG TABLET PO SCH (17:16)
[2021-10-09] MEDS ORDERED: TRAZODONE 50 MG TABLET PO PRN (19:53)
[2021-10-09] MEDS: ENSURE CLEAR 200 ML CAN PO SCH (21:44)
[2021-10-10] MEDS: metroNIDAZOLE 250 MG TABLET PO SCH ×4 (00:22→17:18)
[2021-10-10] MEDS: VANCOMYCIN ORAL SOLN 250 MG/5 ML OSYR PO SCH ×4 (00:22→17:16)
[2021-10-10] MEDS: FENTANYL CITR 100 MCG/2 ML IV PRN ×5 (03:02→21:18)
[2021-10-10 07:59] LABS: Absolute Lymphocytes (CBC) 1.3 K/uL (0.7-4.9); Hematocrit 22.8 % (36.0-45.0); Lymphocytes % 23.7 % (15.3-44.8); MPV 7.6 fL (7.6-11.3)
[2021-10-10 08:17] LABS: Albumin 1.8 g/dL (3.4-5.0); Bilirubin Total 2.6 mg/dL (0.2-1.0); Potassium 3.5 mmol/L (3.5-5.1); Protein, Total 5.8 g/dL (6.4-8.2)
[2021-10-10] MEDS: LACTOBACILLUS/ACIDOPHILUS TAB PO SCH ×3 (08:55→21:20)
[2021-10-10] MEDS: ENSURE CLEAR 200 ML CAN PO SCH ×2 (09:00→21:00)
[2021-10-10 09:20] LABS: Anisocytosis SLIGHT; Blood Morphology Comment NOTED (NOT SEEN); Platelet Estimate DECR; Polychromasia SLIGHT
--- NOTE | 2021-10-10 11:32 | P.PN ---
Subjective Date of Service: 10/10/21 Primary Care Provider: Dr. Díaz Chief Complaint: Colitis, UTI, Weakness Patient seen and examined at bedside, states she has general malaise with nausea/vomiting/diarrhea. Review of Systems 10-point ROS is otherwise unremarkable Physical Examination - Vital Signs Temperature: 98.3 F Blood Pressure: 133/69 Pulse: 94 Respirations: 20 Pulse Ox (%): 100 - Studies Active Medications Apixaban (Apixaban 2.5 Mg Tablet) 2.5 mg PO BID [facility] Last Admin: 10/08/21 21:00 Dose: Not Given Documented by: Enteral Nutritional Formula (Ensure Clear 200 Ml Can) 237 ml PO BID [facility] Last Admin: 10/10/21 09:00 Dose: Not Given Documented by: Eszopiclone (Eszopiclone 1 Mg Tab) 1 mg PO BEDTIME PRN PRN PRN Reason: INSOMNIA Fentanyl Citrate (Fentanyl Citr 100 Mcg/2 Ml) 25 mcg IV Q4H PRN PRN Reason: Pain scale 8-10 (Severe) Last Admin: 10/10/21 08:55 Dose: 25 mcg Documented by: Lactobacillus Acidoph/Bulgaricus (Lactobacillus/Acidophilus Tab) 1 tab PO TID [facility] Last Admin: 10/10/21 08:55 Dose: 1 tab Documented by: Lactulose (Lactulose 20 Gm/30 Ml Ucup) 10 gm PO BID PRN PRN Reason: CONSTIPATION Melatonin (Melatonin 5 Mg Tablet) 5 mg PO BEDTIME PRN PRN PRN Reason: INSOMNIA Last Admin: 10/09/21 01:00 Dose: 5 mg Documented by: Metronidazole (Metronidazole 250 Mg Tablet) 250 mg PO Q6HR [facility]; Protocol Last Admin: 10/10/21 05:27 Dose: 250 mg Documented by: Ondansetron HCl (Ondansetron 4 Mg/2 Ml Vial) 4 mg IV Q6HP PRN PRN Reason: NAUSEA / VOMITING Sodium Chloride (Flush Normal Saline 10 Ml) 10 ml IV BID [facility] Last Admin: 10/10/21 09:00 Dose: 10 ml Documented by: Trazodone HCl (Trazodone 50 Mg Tablet) 25 mg PO BEDTIME PRN PRN PRN Reason: INSOMNIA Last Admin: 10/09/21 21:43 Dose: 25 mg Documented by: Vancomycin HCl (Vancomycin Oral Soln 250 Mg/5 Ml [place]) 125 mg PO Q6HR [facility]; Protocol Last Admin: 10/10/21 05:27 Dose: 125 mg Documented by: Microbiology Data (last 24 hrs): 10/07/21 22:00 Stool Culture & Sensitivity - Final 10/07/21 23:18 Clean Catch Urine [place] Count - Final >100,000 CFU/ML. 10/07/21 23:18 Clean Catch Urine - Final Klebsiella Oxytoca 10/07/21 21:25 Blood - Blood Blood Culture Gram Stain - Final 10/07/21 21:25 Blood - Blood Gram Stain - Final 10/07/21 21:02 Blood - Blood Blood Culture Gram Stain - Final 10/07/21 21:02 Blood - Blood Gram Stain - Final Assessment And Plan - Plan Phsycial Exam: General: Obese, Other (Jaundice) HEENT: Scleral icterus Neck: Supple Respiratory: Clear to auscultation bilaterally, Normal air movement Cardiovascular: Regular rate/rhythm Capillary refill: <2 Seconds Gastrointestinal: Tenderness Musculoskeletal: No clubbing, No swelling, No contractures Integumentary: No rashes, No breakdown, No significant lesion Conclusions/Impression: Antibiotics PO vancomycin: 10/09current Assessment/plan C. difficile--recurrent -Per patient this is her second time getting C. diff within the past few weeks. States that she was recently treated for C. difficile at [facility] in [place], charge nurse is working to get those faxed records. In the meantime continue with p.o. vancomycin for 10 days. UTI -Urine analysis nitrite positive, urine culture growing Klebsiella oxytoca -Patient asymptomatic at this time, no treatment needed. If treatment is initiated recommend starting after completion of oral vancomycin Positive blood cultures -Blood cultures obtained on 10/05 grew gram-positive cocci in 4/4 bottles, repeat obtained on 10/09 are pending. Patient without septic presentation, no leukocytosis/fever/abnormal vital signs. -Patient is very reluctant to start antibiotics due to history of recurrent C. difficile. Will hold off on starting antibiotics until repeat blood cultures are obtained. Of note antibiotic selection made difficult due to cocaine recurrent C. difficile, history of's chronic kidney disease, and liver failure. Patient made aware of plan to hold off on starting antibiotic, agrees with plan. CKD stage III Liver failure Anemia Protein caloric malnutrition: Moderate -Medical management per primary team Plan of care discussed with Dr. Reed Thank for consultation Physician Review: Patient Assessed, Agree with Above Assessment and Plan
--- NOTE | 2021-10-10 12:58 | P.PN ---
Subjective Date of Service: 10/10/21 Primary Care Provider: Dr. Díaz Chief Complaint: Colitis, UTI, Weakness Subjective: No new changes (Patient continues to have loose stools. RADIOLOGY PHYSICIAN ASSISTANT states they're less watery.) Physical Examination - Vital Signs Temperature: 98.2 F Blood Pressure: 131/61 Pulse: 86 Respirations: 18 Pulse Ox (%): 100 - Physical Exam General: In no apparent distress, Cooperative, Obese HEENT: Atraumatic, Normocephalic Respiratory: Other (Breathing is not laboured) Musculoskeletal: Other (fatigued) Neurological: Normal speech, Normal affect - Studies Microbiology Data (last 24 hrs): 10/07/21 22:00 Stool Culture & Sensitivity - Final 10/07/21 23:18 Clean Catch Urine [place] Count - Final >100,000 CFU/ML. 10/07/21 23:18 Clean Catch Urine - Final Klebsiella Oxytoca 10/07/21 21:25 Blood - Blood Blood Culture Gram Stain - Final 10/07/21 21:25 Blood - Blood Gram Stain - Final 10/07/21 21:02 Blood - Blood Blood Culture Gram Stain - Final 10/07/21 21:02 Blood - Blood Gram Stain - Final Assessment And Plan - Current Problems (Diagnosis) (1) Colitis Current Visit: Yes Status: Acute (2) Hepatic cirrhosis Onset Date: 10/03/17 Current Visit: Yes Status: Acute Qualifiers: Hepatic cirrhosis type: unspecified hepatic cirrhosis Ascites presence: without ascites Qualified Code(s): K74.60 - Unspecified cirrhosis of liver (3) UTI (urinary tract infection) Current Visit: Yes Status: Acute Qualifiers: Urinary tract infection type: acute cystitis Hematuria presence: without hematuria Qualified Code(s): N30.00 - Acute cystitis without hematuria (4) Chronic renal disease Onset Date: 05/05/18 Current Visit: Yes Status: Chronic Qualifiers: Chronic kidney disease stage: stage 3 (moderate) (5) Crohn disease Onset Date: 10/03/17 Current Visit: Yes Status: Chronic Qualifiers: Gastrointestinal tract location: small intestine Digestive disease complication type: without complication Qualified Code(s): K50.00 - Crohn's disease of small intestine without complications (6) GERD (gastroesophageal reflux disease) Current Visit: No Status: Suspected Qualifiers: Esophagitis presence: esophagitis presence not specified Qualified Code(s): K21.9 - Gastro-esophageal reflux disease without esophagitis Physician Review: Patient Assessed, Agree with Above Assessment and Plan Physician Review Additional Text: 10/10/21 12:55 Assessment Pateint is a 61 year old female with a recent C difficile infection currently admitted with another episode of C. difficile diarrhea. She is on PO vancomycin and IV flagyl, along probiotics. ID has been consulted. She was also found to have bacteremia with gram positive cocci in clusters, and UTI. PLAN: Follow up repeat blood cultures I appreciate antibiotic reconciliation as per ID. Encourage PO intake DVT PPx: Lovenox Code: Full Discharge Plan: Home Plan to discharge in: Greater than 2 days
[2021-10-10] MEDS ORDERED: UBROGEPANT 100 MG PO PRN (17:22)
[2021-10-10] MEDS ORDERED: BENZTROPINE MESYLATE 0.5 MG PO SCH (21:00)
[2021-10-10] MEDS ORDERED: ESZOPICLONE 1 MG TAB PO PRN (21:00)
[2021-10-10] MEDS: HOME MED 1 EA UNK (Estradiol [Estradiol] 42.5 GM Cream.Appl) VAG SCH (21:00)
[2021-10-10] MEDS ORDERED: TOPIRAMATE 50 MG PO SCH (21:00)
[2021-10-10] MEDS ORDERED: ESZOPICLONE 1 MG TAB PO SCH (21:00)
[2021-10-10] MEDS ORDERED: HOME MED 1 EA UNK (Quetiapine Fumarate [Seroquel] 50 MG Tablet) PO SCH (21:00)
[2021-10-10] MEDS: HOME MED [Rifaximin 550 MG Tab] PO SCH (21:00)
[2021-10-10] MEDS ORDERED: HOME MED 1 EA UNK (Eszopiclone [Lunesta] 3 MG Tablet) PO SCH (21:00)
[2021-10-10] MEDS: ESZOPICLONE 3 MG PO PRN (21:17)
[2021-10-10] MEDS: NYSTATIN PWDR 100000 UNIT/GM TOP SCH (21:17)
[2021-10-10] MEDS: Rifaximin 550 MG Tab PO SCH (21:19)
[2021-10-10] MEDS: BENZTROPINE 1 MG TAB PO SCH (21:20)
[2021-10-10] MEDS: QUETIAPINE 25 MG TAB PO SCH (21:20)
[2021-10-10] MEDS: TOPIRAMATE 25 MG TAB PO SCH (21:20)
[2021-10-11] MEDS: VANCOMYCIN ORAL SOLN 250 MG/5 ML OSYR PO SCH ×5 (00:07→23:02)
[2021-10-11] MEDS: metroNIDAZOLE 250 MG TABLET PO SCH ×5 (00:08→23:02)
[2021-10-11] MEDS: D5W 1,000 ML IV SCH ×3 (00:33→21:00)
[2021-10-11 06:07] LABS: Absolute Lymphocytes (CBC) 1.1 K/uL (0.7-4.9); Hematocrit 21.4 % (36.0-45.0); Lymphocytes % 32.6 % (15.3-44.8); MPV 8.2 fL (7.6-11.3); RBC Red Blood Cell Count 2.15 M/uL (3.86-4.86)
[2021-10-11 06:30] LABS: Albumin 1.7 g/dL (3.4-5.0); Bilirubin Total 2.2 mg/dL (0.2-1.0); Protein, Total 5.5 g/dL (6.4-8.2)
[2021-10-11 06:31] LABS: Potassium 2.9 mmol/L (3.5-5.1)
[2021-10-11] MEDS: LACTOBACILLUS/ACIDOPHILUS TAB PO SCH ×3 (08:11→22:11)
[2021-10-11] MEDS: KCL 20 MEQ/100 mL IVPB 20 MEQ/100 ML BAG IV SCH ×5 (08:11→12:05)
[2021-10-11] MEDS: TOPIRAMATE 25 MG TAB PO SCH ×2 (08:11→22:11)
[2021-10-11] MEDS: BENZTROPINE 1 MG TAB PO SCH ×2 (08:12→22:11)
[2021-10-11] MEDS: FENTANYL CITR 100 MCG/2 ML IV PRN ×4 (08:23→22:53)
[2021-10-11] MEDS: Rifaximin 550 MG Tab PO SCH ×2 (08:23→22:10)
[2021-10-11] MEDS: SPIRONOLACTONE 25 MG TABLET PO SCH (08:26)
[2021-10-11] MEDS: ENSURE CLEAR 200 ML CAN PO SCH ×2 (08:26→21:00)
[2021-10-11] MEDS: APIXABAN 2.5 MG TABLET PO SCH ×2 (08:26→22:10)
[2021-10-11] MEDS: NYSTATIN PWDR 100000 UNIT/GM TOP SCH ×3 (08:27→21:00)
[2021-10-11] MEDS: HOME MED [Rifaximin 550 MG Tab] PO SCH ×2 (08:27→21:00)
[2021-10-11] MEDS ORDERED: POTASSIUM CL SA 10 MEQ TAB PO ONE (09:42)
--- NOTE | 2021-10-11 12:29 | P.PN ---
Subjective Date of Service: 10/11/21 Primary Care Provider: Dr. Díaz Chief Complaint: Colitis, UTI, Weakness Patient seen and examined at bedside, repeat blood cultures show no growth. Initial cultures obtained on 10/07 came back at stap epi, likely contamination. Review of Systems 10-point ROS is otherwise unremarkable Physical Examination - Vital Signs Temperature: 97.3 F Blood Pressure: 100/55 Pulse: 81 Respirations: 18 Pulse Ox (%): 98 - Studies Microbiology Data (last 24 hrs): 10/07/21 21:02 Blood - Blood Blood Culture Gram Stain - Final 10/07/21 21:02 Blood - Blood Gram Stain - Final 10/07/21 21:25 Blood - Blood Blood Culture Gram Stain - Final 10/07/21 21:25 Blood - Blood Gram Stain - Final 10/07/21 22:00 Stool Culture & Sensitivity - Final 10/07/21 23:18 Clean Catch Urine [place] Count - Final >100,000 CFU/ML. 10/07/21 23:18 Clean Catch Urine - Final Klebsiella Oxytoca Assessment And Plan - Plan Phsycial Exam: General: Obese, Other (Jaundice) HEENT: Scleral icterus Neck: Supple Respiratory: Clear to auscultation bilaterally, Normal air movement Cardiovascular: Regular rate/rhythm Capillary refill: <2 Seconds Gastrointestinal: Tenderness Musculoskeletal: No clubbing, No swelling, No contractures Integumentary: No rashes, No breakdown, No significant lesion Conclusions/Impression: Antibiotics PO vancomycin: 10/09current Assessment/plan C. difficile--recurrent -Per patient this is her second time getting C. diff within the past few weeks. States that she was recently treated for C. difficile at [facility] in [place], charge nurse is working to get those faxed records. In the meantime continue with p.o. vancomycin for 10 days. UTI -Urine analysis nitrite positive, urine culture growing Klebsiella oxytoca -Patient asymptomatic at this time, no treatment needed. If treatment is initiated recommend starting after completion of oral vancomycin Positive blood cultures -Blood cultures obtained on 10/07 grew staph epi in 4/4 bottles, repeat obtained on 10/09 showed no growth. Patient without septic presentation, no leukocytosis/fever/abnormal vital signs. -Patient is very reluctant to start antibiotics due to history of recurrent C. difficile. Initial positive cultures likely represent contamination, will hold off on starting antibiotics at this time. Of note antibiotic selection made difficult due to cocaine recurrent C. difficile, history of's chronic kidney disease, and liver failure. Patient made aware of plan to hold off on starting antibiotic, agrees with plan. CKD stage III Liver failure Anemia Protein caloric malnutrition: Moderate -Medical management per primary team Plan of care discussed with Dr. Reed Thank for consultation Physician Review: Patient Assessed, Agree with Above Assessment and Plan
--- NOTE | 2021-10-11 14:36 | P.PN ---
Subjective Date of Service: 10/11/21 Primary Care Provider: Dr. Díaz Chief Complaint: Colitis, UTI, Weakness Subjective: Improving Physical Examination - Vital Signs Temperature: 97.3 F Blood Pressure: 100/55 Pulse: 81 Respirations: 18 Pulse Ox (%): 98 - Physical Exam General: In no apparent distress, Cooperative HEENT: Atraumatic, Normocephalic Respiratory: Normal air movement Cardiovascular: No edema, Regular rate/rhythm, Normal S1 S2 Neurological: Normal speech, Normal affect - Studies Microbiology Data (last 24 hrs): 10/07/21 21:02 Blood - Blood Blood Culture Gram Stain - Final 10/07/21 21:02 Blood - Blood Gram Stain - Final 10/07/21 21:25 Blood - Blood Blood Culture Gram Stain - Final 10/07/21 21:25 Blood - Blood Gram Stain - Final Assessment And Plan - Current Problems (Diagnosis) (1) Colitis Current Visit: Yes Status: Acute (2) Hepatic cirrhosis Onset Date: 10/03/17 Current Visit: Yes Status: Acute Qualifiers: Hepatic cirrhosis type: unspecified hepatic cirrhosis Ascites presence: without ascites Qualified Code(s): K74.60 - Unspecified cirrhosis of liver (3) UTI (urinary tract infection) Current Visit: Yes Status: Acute Qualifiers: Urinary tract infection type: acute cystitis Hematuria presence: without hematuria Qualified Code(s): N30.00 - Acute cystitis without hematuria (4) Chronic renal disease Onset Date: 05/05/18 Current Visit: Yes Status: Chronic Qualifiers: Chronic kidney disease stage: stage 3 (moderate) (5) Crohn disease Onset Date: 10/03/17 Current Visit: Yes Status: Chronic Qualifiers: Gastrointestinal tract location: small intestine Digestive disease complication type: without complication Qualified Code(s): K50.00 - Crohn's disease of small intestine without complications (6) GERD (gastroesophageal reflux disease) Current Visit: No Status: Suspected Qualifiers: Esophagitis presence: esophagitis presence not specified Qualified Code(s): K21.9 - Gastro-esophageal reflux disease without esophagitis Physician Review: Patient Assessed, Agree with Above Assessment and Plan Physician Review Additional Text: Assessment Patient is a 61 year old female with a recent C difficile infection currently admitted with another episode of C. difficile diarrhea. She is on PO vancomycin and IV flagyl, along probiotics. ID has been consulted. She was also found to have bacteremia with gram positive cocci in clusters, and UTI. PLAN: Repeat blood cx negative to date She is doing better from a C. difficile standpoint. Her stool is more formed. She will be treated for total of 10 days with oral vancomycin She is staying an additional day for potassium repletion She also has UTI with Klebsiella oxytoca. ID recommends starting treatment after completing her C. difficile regimen if her UTI symptoms are still present. Her diet has been advanced to regular diet Patient can be discharged tomorrow DVT PPx: Lovenox Code: Full Discharge Plan: Home Plan to discharge in: 1 day
[2021-10-11 17:29] LABS: Potassium 4.2 mmol/L (3.5-5.1)
[2021-10-11] MEDS: HOME MED 1 EA UNK (Estradiol [Estradiol] 42.5 GM Cream.Appl) VAG SCH (21:00)
--- NOTE | 2021-10-11 21:33 | RAD REPORT ---
EXAM DESCRIPTION: RAD - Chest Single View - 10/11/2021 9:06 pm CLINICAL HISTORY: picc placement verification COMPARISON: Chest Single View dated 09/01/2021; Chest Single View dated 07/28/2021; Chest Single View dated 05/18/2021; Chest Single View dated 09/10/2019 FINDINGS: Portable chest was obtained following placement of a right upper extremity PICC line. The catheter tip projects over the SVC.
[2021-10-11] MEDS: QUETIAPINE 25 MG TAB PO SCH (22:10)
[2021-10-11] MEDS: ESZOPICLONE 3 MG PO PRN (22:10)
[2021-10-12 05:43] LABS: Albumin 1.7 g/dL (3.4-5.0); Bilirubin Total 2.1 mg/dL (0.2-1.0); Potassium 3.4 mmol/L (3.5-5.1); Protein, Total 5.5 g/dL (6.4-8.2)
[2021-10-12] MEDS: VANCOMYCIN ORAL SOLN 250 MG/5 ML OSYR PO SCH ×4 (05:43→23:58)
[2021-10-12] MEDS: metroNIDAZOLE 250 MG TABLET PO SCH ×4 (05:44→23:58)
[2021-10-12] MEDS ORDERED: POTASSIUM CL SA 10 MEQ TAB PO ONE ×2 (07:08→09:00)
[2021-10-12] MEDS: ENSURE CLEAR 200 ML CAN PO SCH ×2 (09:00→21:00)
[2021-10-12] MEDS: HOME MED [Rifaximin 550 MG Tab] PO SCH (09:00)
[2021-10-12] MEDS: NYSTATIN PWDR 100000 UNIT/GM TOP SCH ×3 (09:00→21:00)
[2021-10-12] MEDS: FENTANYL CITR 100 MCG/2 ML IV PRN ×4 (09:09→23:25)
[2021-10-12] MEDS: D5W 1,000 ML IV SCH ×3 (09:10→21:21)
[2021-10-12] MEDS: LACTOBACILLUS/ACIDOPHILUS TAB PO SCH ×3 (09:11→21:01)
[2021-10-12] MEDS: APIXABAN 2.5 MG TABLET PO SCH ×2 (09:11→21:01)
[2021-10-12] MEDS: BENZTROPINE 1 MG TAB PO SCH ×2 (09:11→21:02)
[2021-10-12] MEDS: TOPIRAMATE 25 MG TAB PO SCH ×2 (09:12→21:00)
[2021-10-12] MEDS: SPIRONOLACTONE 25 MG TABLET PO SCH (09:12)
[2021-10-12] MEDS: Rifaximin 550 MG Tab PO SCH ×2 (09:12→21:01)
[2021-10-12 09:40] LABS: Absolute Lymphocytes (CBC) 1.2 K/uL (0.7-4.9); Hematocrit 21.4 % (36.0-45.0); Lymphocytes % 32.9 % (15.3-44.8); MPV 7.3 fL (7.6-11.3); RBC Red Blood Cell Count 2.15 M/uL (3.86-4.86)
--- NOTE | 2021-10-12 11:07 | P.PN ---
Subjective Date of Service: 10/12/21 Primary Care Provider: Dr. Díaz Chief Complaint: Colitis, UTI, Weakness Patient seen and examined at bedside, day 410 of oral vancomycin therapy. Patient states that foul odor to stool has subsided. States that her diarrhea was more at baseline secondary to her Crohn's disease. Review of Systems 10-point ROS is otherwise unremarkable Physical Examination - Vital Signs Temperature: 97.4 F Blood Pressure: 119/62 Pulse: 85 Respirations: 16 Pulse Ox (%): 98 - Studies Laboratory Last Values WBC 10.80 K/uL (4.3-10.9) 10/07/21 21:03 RBC 2.80 M/uL (3.86-4.86) L 10/07/21 21:03 Hgb 9.3 g/dL (12.0-15.0) L 10/07/21 21:03 Hct 28.0 % (36.0-45.0) L 10/07/21 21:03 MCV 100.0 fL (80-100) 10/07/21 21:03 MCH 33.1 pg (27.0-35.0) 10/07/21 21:03 MCHC 33.1 g/dL (32.0-36.0) 10/07/21 21:03 RDW 19.9 % (12.1-15.2) H 10/07/21 21:03 Plt Count 101 K/uL (152-406) L 10/07/21 21:03 MPV 8.1 fL (7.6-11.3) 10/07/21 21:03 Neutrophils % 90.7 % (41.7-73.7) H 10/07/21 21:03 Lymphocytes % 5.1 % (15.3-44.8) L 10/07/21 21:03 Monocytes % 3.8 % (3.3-12.3) 10/07/21 21:03 Eosinophils % 0.1 % (0-4.4) 10/07/21 21:03 Basophils % 0.3 % (0-1.3) 10/07/21 21:03 Absolute Neutrophils 9.8 K/uL (1.8-8.0) H 10/07/21 21:03 Absolute Lymphocytes 0.6 K/uL (0.7-4.9) L 10/07/21 21:03 Absolute Monocytes 0.4 K/uL (0.1-1.3) 10/07/21 21:03 Absolute Eosinophils 0.0 K/uL (0-0.5) 10/07/21 21:03 Absolute Basophils 0.0 K/uL (0-0.5) 10/07/21 21:03 PT 16.0 SECONDS (9.5-12.5) H 10/07/21 21:03 INR 1.39 10/07/21 21:03 APTT 34.1 SECONDS (24.3-36.9) 10/07/21 21:03 Sodium 143 mmol/L (136-145) 10/07/21 21:03 Potassium 3.7 mmol/L (3.5-5.1) 10/07/21 21:03 Chloride 117 mmol/L (98-107) H 10/07/21 21:03 Carbon Dioxide 15 mmol/L (21-32) L 10/07/21 21:03 BUN 13 mg/dL (7-18) 10/07/21 21:03 Creatinine 1.43 mg/dL (0.55-1.3) H 10/07/21 21:03 Estimated GFR 37 mL/min (=/>90) L 10/07/21 21:03 Glucose 159 mg/dL (74-106) H 10/07/21 21:03 Calcium 8.1 mg/dL (8.5-10.1) L 10/07/21 21:03 Total Bilirubin 2.7 mg/dL (0.2-1.0) H 10/07/21 21:03 Direct Bilirubin 1.3 mg/dL (0-0.2) H 10/07/21 21:03 AST 51 U/L (15-37) H 10/07/21 21:03 ALT 27 U/L (12-78) 10/07/21 21:03 Alkaline Phosphatase 82 U/L (45-117) 10/07/21 21:03 Ammonia 71 umol/L (19-54) H 10/07/21 21:33 Serum Total Protein 7.1 g/dL (6.4-8.2) 10/07/21 21:03 Albumin 2.1 g/dL (3.4-5.0) L 10/07/21 21:03 Globulin 5.0 g/dL (2.3-3.5) H 10/07/21 21:03 Albumin/Globulin Ratio 0.4 (1.1-1.8) L 10/07/21 21:03 Lipase 76 U/L (73-393) 10/07/21 21:03 Urine pH 6.0 (5.0-7.0) 10/07/21 22:47 Ur Specific [place] 1.025 (1.005-1.030) 10/07/21 22:47 Glucose (UA)(Auto) Negative (Negative) 10/07/21 22:47 Urine Ketones Negative (Negative) 10/07/21 22:47 Urine Blood Negative (Negative) 10/07/21 22:47 Urine Nitrite Positive (Negative) H 10/07/21 22:47 Ur Leukocyte Esterase Negative (Negative) 10/07/21 22:47 Urine Total Protein Negative (Negative) 10/07/21 22:47 Influenza Type A RNA Negative (NEGATIVE) 10/07/21 21:10 Influenza Type B RNA Negative (NEGATIVE) 10/07/21 21:10 SARS-CoV-2 RNA (RT-PCR) Negative (NEGATIVE) 10/07/21 21:10 Microbiology Data (last 24 hrs): 10/07/21 21:02 Blood - Blood Aerobic Blood Culture - Final Staph Epidermidis 10/07/21 21:02 Blood - Blood Blood Culture Gram Stain - Final 10/07/21 21:02 Blood - Blood Anaerobic Blood Culture - Final Staph Epidermidis 10/07/21 21:02 Blood - Blood Gram Stain - Final 10/07/21 21:25 Blood - Blood Aerobic Blood Culture - Final Staph Epidermidis 10/07/21 21:25 Blood - Blood Blood Culture Gram Stain - Final 10/07/21 21:25 Blood - Blood Anaerobic Blood Culture - Final Staph Epidermidis 10/07/21 21:25 Blood - Blood Gram Stain - Final Assessment And Plan - Plan Phsycial Exam: General: Obese, Other (Jaundice) HEENT: Scleral icterus Neck: Supple Respiratory: Clear to auscultation bilaterally, Normal air movement Cardiovascular: Regular rate/rhythm Capillary refill: <2 Seconds Gastrointestinal: Tenderness Musculoskeletal: No clubbing, No swelling, No contractures Integumentary: No rashes, No breakdown, No significant lesion Conclusions/Impression: Antibiotics PO vancomycin: 10/09current Assessment/plan C. difficile--recurrent -Per patient this is her second time getting C. diff within the past few weeks. States that she was recently treated for C. difficile at [facility] in [place], charge nurse is working to get those faxed records. In the meantime continue with p.o. vancomycin for 10 days. UTI -Urine analysis nitrite positive, urine culture growing Klebsiella oxytoca -Patient asymptomatic at this time, no treatment needed. If treatment is initiated recommend starting after completion of oral vancomycin Positive blood cultures -Blood cultures obtained on 10/07 grew staph epi in 4/4 bottles, repeat obtained on 10/09 showed no growth. Patient without septic presentation, no leukocytosis/fever/abnormal vital signs. -Patient is very reluctant to start antibiotics due to history of recurrent C. difficile. Initial positive cultures likely represent contamination, will hold off on starting antibiotics at this time. Of note antibiotic selection made difficult due to cocaine recurrent C. difficile, history of's chronic kidney disease, and liver failure. Patient made aware of plan to hold off on starting antibiotic, agrees with plan. CKD stage III Liver failure Anemia Protein caloric malnutrition: Moderate -Medical management per primary team Plan of care discussed with Dr. Reed Thank for consultation Physician Review: Patient Assessed, Agree with Above Assessment and Plan
[2021-10-12] MEDS ORDERED: NA CHLORIDE 0.9% 250 ML ONE (14:49)
--- NOTE | 2021-10-12 14:52 | RAD REPORT ---
EXAM DESCRIPTION: US - Pelvis Complete - 10/12/2021 2:15 pm CLINICAL HISTORY: ovarian cyst COMPARISON: Abdomen Pelvis Wo Contrast dated 10/07/2021; Abdomen Pelvis Wo Contrast dated 11/02/19 21; Stone Protocol dated 12/31/2018; Abdomen Pelvis W Contrast dated 04/07/2018 TECHNIQUE: Transabdominal pelvic sonography was performed. FINDINGS: Endometrial stripe is 6-7 mm with no endometrial mass or polyp identified. Endometrium-josef metrium interface is preserved. Uterine size is normal for age with no myometrial mass lesion identif ied. Left ovary was obscured by bowel. No left adnexal mass abnormality seen. The recent CT study showed n o left adnexal suspicious finding. A 3.2 centimeter right ovarian anechoic to minimally hypoechoic thin-walled cyst is present. No septa tion or mural nodule seen. This is the correlate to the CT study. Review of the prior CT study shows this mass to have been present and stable since 2019. There was an increased from approximately 2.6-3 .1 cm between 2018 and 2019. IMPRESSION: Right ovarian 3.2 centimeter cyst is present showing no suspicious characteristics other than size for the patient's age. Stability of the cyst can be demonstrated back to 2019. There were slight growth between 2018 and 201 9. Acute significance is doubtful. This can be monitored periodically.
--- NOTE | 2021-10-12 17:18 | P.DS ---
Admission Date: 10/08/21 Discharge Date: 10/12/21 Primary Care Provider: Dr. Díaz Disposition: ROUTINE DISCHARGE Discharge Condition: GOOD Reason for Admission: Colitis, UTI, Weakness - Problems (1) Colitis Current Visit: Yes Status: Acute (2) Hepatic cirrhosis Onset Date: 10/03/17 Current Visit: Yes Status: Acute Qualifiers: Hepatic cirrhosis type: unspecified hepatic cirrhosis Ascites presence: wi thout ascites Qualified Code(s): K74.60 - Unspecified cirrhosis of liver (3) UTI (urinary tract infection) Current Visit: Yes Status: Acute Qualifiers: Urinary tract infection type: acute cystitis Hematuria presence: without hematuria Qualified Code(s): N30.00 - Acute cystitis without hematuria (4) Chronic renal disease Onset Date: 05/05/18 Current Visit: Yes Status: Chronic Qualifiers: Chronic kidney disease stage: stage 3 (moderate) (5) Crohn disease Onset Date: 10/03/17 Current Visit: Yes Status: Chronic Qualifiers: Gastrointestinal tract location: small intestine Digestive disease complication type: without complication Qualified Code(s): K50.00 - Crohn's disease of small intestine without complications (6) GERD (gastroesophageal reflux disease) Current Visit: No Status: Suspected Qualifiers: Esophagitis presence: esophagitis presence not specified Qualified Code(s): K21.9 - Gastro-esophageal reflux disease without esophagitis Hospital Course: Patient is a 61-year-old female with a PMH of Crohn's disease and a recent diagnosis of C. difficile colitis. She was admitted here with another c difficile colitis after she presented with diarrhea and generalized weakness. She had a Cr of 1.43 on admission. She did well with volume repletion and PO vancomycin. Patient's hospital course was most likely unremarkable except for multiple potassium replacements. She can be discharged today. Vital Signs/Physical Exam: Temp Pulse Resp BP Pulse Ox 97.6 F 86 16 118/60 97 10/12/21 16:00 10/12/21 16:00 10/12/21 16:00 10/12/21 16:00 10/12/21 16:00 General: In no apparent distress, Cooperative Respiratory: Clear to auscultation bilaterally, Normal air movement Cardiovascular: Regular rate/rhythm, Normal S1 S2 Neurological: Normal speech, Normal affect Laboratory Data at Discharge: WBC 3.70 K/uL (4.3-10.9) L 03/03/22 09:24 Hgb 7.1 g/dL (12.0-15.0) L 10/12/21 09:24 Hct 21.4 % (36.0-45.0) L 10/12/21 09:24 Plt Count 84 K/uL (152-406) L 10/12/21 09:24 PT 16.0 SECONDS (9.5-12.5) H 10/07/21 21:03 INR 1.39 10/07/21 21:03 APTT 34.1 SECONDS (24.3-36.9) 10/07/21 21:03 Sodium 144 mmol/L (136-145) 10/12/21 05:15 Potassium Cancelled 10/12/21 Unknown BUN 5 mg/dL (7-18) L 10/12/21 05:15 Creatinine 0.80 mg/dL (0.55-1.3) 10/12/21 05:15 Glucose 104 mg/dL (74-106) 10/12/21 05:15 Magnesium 1.9 mg/dL (1.8-2.4) 10/11/21 16:54 Total Bilirubin 2.1 mg/dL (0.2-1.0) H 10/12/21 05:15 AST 44 U/L (15-37) H 10/12/21 05:15 ALT 22 U/L (12-78) 10/12/21 05:15 Alkaline Phosphatase 66 U/L (45-117) 10/12/21 05:15 Triglycerides 89 mg/dL (<150) 10/09/21 05:54 Cholesterol 51 mg/dL (<200) 10/09/21 05:54 HDL Cholesterol 17 mg/dL (40-60) L 10/09/21 05:54 Cholesterol/HDL Ratio 3.00 10/09/21 05:54 Lipase 76 U/L (73-393) 10/07/21 21:03 Home Medications: Benztropine Mesylate 0.5 mg PO BID 10/09/21 Eszopiclone [Lunesta] 3 mg PO BEDTIME 10/09/21 Nystatin [Nystop] 1 alhaji TOP TID 10/09/21 Ondansetron [Zofran (Odt)*] 4 mg PO DAILY PRN 10/09/21 Quetiapine Fumarate [Seroquel] 50 mg PO BEDTIME 10/09/21 Rifaximin [Xifaxan] 550 mg PO BID 10/09/21 Spironolactone [Aldactone*] 25 mg PO DAILY 10/09/21 Topiramate [Topamax] 50 mg PO BID 10/09/21 Tramadol HCl [Ultram] 50 mg PO BIDP PRN 10/09/21 Ubrogepant [Ubrelvy] 100 mg PO DAILY PRN 10/09/21 estradioL [Estradiol] 1 alhaji VAG BEDTIME 10/09/21 Apixaban [Eliquis *] 2.5 mg PO BID tablet 10/12/21 Followup: Unknown,U [Primary Care Provider] -
[2021-10-12] MEDS: HOME MED 1 EA UNK (Estradiol [Estradiol] 42.5 GM Cream.Appl) VAG SCH (21:00)
[2021-10-12] MEDS: QUETIAPINE 25 MG TAB PO SCH (21:01)
[2021-10-12] MEDS: ESZOPICLONE 3 MG PO PRN (21:14)
[2021-10-12] MEDS ORDERED: HYDROCODONE/APAP 5/325 MG TAB PO ONE (21:42)
[2021-10-12 21:51] LABS: Hematocrit 23.1 % (36.0-45.0)
[2021-10-13 04:34] VITALS: BP 102/54
[2021-10-13 05:34] LABS: Albumin 1.7 g/dL (3.4-5.0); Bilirubin Total 2.3 mg/dL (0.2-1.0); Potassium 3.4 mmol/L (3.5-5.1); Protein, Total 5.4 g/dL (6.4-8.2)
[2021-10-13] MEDS: VANCOMYCIN ORAL SOLN 250 MG/5 ML OSYR PO SCH (06:23)
[2021-10-13] MEDS: FENTANYL CITR 100 MCG/2 ML IV PRN (06:23)
[2021-10-13] MEDS: metroNIDAZOLE 250 MG TABLET PO SCH (06:23)
[2021-10-13] MEDS: D5W 1,000 ML IV SCH (06:29)
[2021-10-13] MEDS ORDERED: POTASSIUM 25 MEQ EFFERV TAB PO ONE (09:00)
[2021-10-13] MEDS: APIXABAN 2.5 MG TABLET PO SCH (09:00)
[2021-10-13] MEDS: NYSTATIN PWDR 100000 UNIT/GM TOP SCH (09:00)
[2021-10-13] MEDS: ENSURE CLEAR 200 ML CAN PO SCH (09:00)
[2021-10-13] MEDS: SPIRONOLACTONE 25 MG TABLET PO SCH (09:12)
[2021-10-13] MEDS: BENZTROPINE 1 MG TAB PO SCH (09:12)
[2021-10-13] MEDS: LACTOBACILLUS/ACIDOPHILUS TAB PO SCH (09:12)
[2021-10-13] MEDS: TOPIRAMATE 25 MG TAB PO SCH (09:12)
[2021-10-13] MEDS: Rifaximin 550 MG Tab PO SCH (09:14)
[2021-10-13 09:59] VITALS: TEMP 97.6
== END 2021-10-13 10:39 | disposition home or self-care (01) | DRG 372 ==
LOC: ER 20:51 → ERHOLD 10-08 01:40 → 2ND 10-08 01:55
PROVIDERS: ADMIT Hospitalist; ATTEND Internal Medicine
PROC: 02HV33Z Insertion of Infusion Device into Superior Vena Cava, Percutaneous Approach (ICD-10-PCS; 2021-10-11)
PROC: 30233N1 Transfusion of Nonautologous Red Blood Cells into Peripheral Vein, Percutaneous Approach (ICD-10-PCS; principal; 2021-10-12)
DX: A04.71 Enterocolitis due to Clostridium difficile, recurrent (principal); N30.00 Acute cystitis without hematuria; K50.00 Crohn's disease of small intestine without complications; E44.0 Moderate protein-calorie malnutrition; N18.30 Chronic kidney disease, stage 3 unspecified; K74.60 Unspecified cirrhosis of liver; K72.90 Hepatic failure, unspecified without coma; K21.9 Gastro-esophageal reflux disease without esophagitis; G62.9 Polyneuropathy, unspecified; G20 Parkinson's disease; E86.0 Dehydration; B96.1 Klebsiella pneumoniae [K. pneumoniae] as the cause of diseases classified elsewhere; Z68.36 Body mass index [BMI] 36.0-36.9, adult; Z88.1 Allergy status to other antibiotic agents; Z88.8 Allergy status to other drugs, medicaments and biological substances; Z91.048 Other nonmedicinal substance allergy status; Z90.49 Acquired absence of other specified parts of digestive tract; Z20.822 Contact with and (suspected) exposure to COVID-19
CPT/HCPCS: 0240U; 36415; 36430; 36569; 51702; 71045; 74176; 76856; 80048; 80053; 80061; 80076; 81003; 82140; 82607; 82746; 82947; 83540; 83690; 83735; 84132; 84439; 84443; 85014; 85018; 85025; 85610; 85730; 86850; 86900; 86901; 87040; 87045; 87046; 87077; 87086; 87088; 87177; 87186; 87205; 87209; 87324; 87425; 87449; 89055; 93005; 96361; 96374; 96375; 99285; J1650; J2405; J3010; J3370; J3475; J3480; J7030; J7040; J7050; J7799; P9016

== ENCOUNTER 2021-12-04 04:38 | Inpatient (IN) | payer OTHER ==
--- OUTSIDE RECORDS SUMMARY | 2021-12-04 04:46 | XMS REPORT | Continuity of Care Document ---
:1960 Author Organization [facility] t Address [address] [place] [address] Care Team Providers Name Role Phone Robby Garcia Primary Care Physician Rodolfo Díaz Attending Clinician Unavailable Jay LAMAR Attending Clinician TING PIERSON Attending Clinician Unavailable MD ERIKA MARSHALL Attending Clinician Unavailable JESSICA HALL Attending Clinician Unavailable VIVIANE Attending Clinician Unavailable Matthew Cleveland RN Attending Clinician Unavailable Viviane FRANKLIN Attending Clinician ADALI Attending Clinician Unavailable Austin Balderrama MD Attending Clinician Davina FRANKLIN Attending Clinician Tomy FRANKLIN Attending Clinician Theodore DUBOSE Attending Clinician Unavailable Jesus OLMOS Attending Clinician Unavailable Stephanie GUAJARDO Attending Clinician Unavailable Kortney Limon DO Attending Clinician Johnny Lopez PhD Attending Clinician Unavailable Bin Bangura MD Attending Clinician Zulma Williamson MA Attending Clinician Unavailable CHELA Attending Clinician Unavailable [place] RN Attending Clinician Unavailable Jesus Alberto Kovacs DO Attending Clinician Mildred FRANKLIN, Doni Attending Clinician Ping Garcia MD Attending Clinician AdelereCurry cantu DO Attending Clinician Gus Azevedo MD Attending Clinician Gabriel Perez MD Attending Clinician Daija HERRON, S Attending Clinician ROLANDO Admitting Clinician Unavailable ELAINA LAWRENCE Admitting Clinician Unavailable TING PIERSON Admitting Clinician Unavailable DAVINA Admitting Clinician Unavailable CHELA Admitting Clinician Unavailable Payers Payer Name Policy Type Policy Number Effective Date Expiration Date Nafisa vasquez MEDICARE A B [id number] 2015 00:00:00 GENERIC MEDICAID [id number] 2021 HMO 00:00:00 Advance Directives Directive Decision Effective Termination Comments Source Date Date Healthcare Agents on N/A [facility] [place] FileNameRelationshipHealthcare [facility] Agent Medical RelationshipCommunicationWy[facility] Care [phone] (Mobile) Problems Condition Condition Condition Status Onset Resolution Last Treating Co mments Source Name Details Category Date Date Treatment Clinician Date Altered Altered Disease Active [facility] status status [facility] 00 Center SBP SBP Disease Active [facility] (spontaneo (spontaneo 08-24 us 00:00: Hospita bacterial bacterial 00 l peritoniti peritoniti s) s) Debility Debility Disease Active Metho di 08-21 st 00:00: Hospita 00 l Mobility Mobility Disease Active Metho di impaired impaired 08-21 00:00: Hospita 00 l Metabolic Metabolic Disease Active Met [facility]odi acidosis acidosis 08-18 00:00: Hospita 00 l Preoperati Preoperati Disease Active Overview : Methodi ve ve 08-[address] clearance clearance 00:00: g of this H ospita 00 note l might be different from the original. Added automatic ally from request for surgery [id number] Chronic Chronic Disease Active 2020-08 [facility] kidney kidney 0-15 st disease disease 00:00: Hospita 00 l SBP SBP Disease Active 2020-08 [facility] (spontaneo (spontaneo 0-13 st us 00:00: Hospita bacterial bacterial 00 l peritoniti peritoniti s) s) Acute Acute Disease Active 2019-08 [facility] cystitis cystitis 0-03 st without without 00:00: Hospita hematuria hematuria 00 l Hyperkalem Hyperkalem Disease Active 2019-08 M ethodi ia ia 0-03 st 00:00: Hospita 00 l Lymphedema Lymphedema Disease Active M ethodi 9 st 00:00: Hospita 00 l Tremor of Tremor of Disease Active Met hodi unknown unknown 8 st origin origin 00:00: Hospita 00 l Weakness Weakness Disease Active Metho di generalize generalize 6 st d d 00:00: Hospita 00 l Confusion Confusion Disease Active Met hodi 3 st 00:00: Hospita 00 l Acute Acute Disease Active 2018-08 [facility] hepatic hepatic [address] encephalop encephalop 00:00: Ho spita athy athy 00 l Slurred Slurred Disease Active [facility] speech speech 05-08 st 00:00: Hospita 00 l CAM (acute CAM (acute Disease Active M ethodi kidney kidney 05-08 st injury) injury) 00:00: Hospita 00 l UTI UTI Disease Active [facility] (urinary (urinary 9 st tract tract 00:00: Hospita infection) infection) 00 l Altered Altered Disease Active [facility] mental mental 8 st status, status, 00:00: Hospita unspecifie unspecifie 00 l d d Obesity Obesity Disease Active Univers (BMI (BMI 7-26 ity of 30-39.9) 30-39.9) 00:00: [place] [address] Medical Branch Hematochez Hematochez Disease Active U nivers ia ia 7- ity of 00:00: [place] [facility] Abdominal Abdominal Disease Active Met hodi pain pain 403 st 00:00: Hospita 00 l Weakness Weakness Disease Active Metho di 08-20 00:00: Hospita 00 l Chest pain Chest pain Disease Active M ethodi on on 08-20 breathing breathing 00:00: Hosp page 00 l Non-intrac Non-intrac Disease Active M ethodi table table 08-20 vomiting vomiting 00:00: Hospit a with with 00 l nausea nausea Gastroesop Gastroesop Disease Active M ethodi hageal hageal 08-20 reflux reflux 00:00: Hospita disease disease 00 l CAM (acute CAM (acute Disease Active M ethodi kidney kidney 08-20 injury) injury) 00:00: Hospita 00 l Disorder Disorder Disease Active Metho di of liver of liver 08-20 00:00: Hospita 00 l Liver Liver Disease Active 2017-08 [facility] cirrhosis cirrhosis 09-04 st 00:00: Hospita 00 l Acute Acute Disease Active [facility] hepatic hepatic 10-05 st encephalop encephalop 00:00: [facility] athy athy 00 l Hematochez Hematochez Disease Active M ethodi ia ia 12-11 st 00:00: Hospita 00 l Melena Melena Disease Active Overview: Method i 12-[address] 00:00: g of this Hospita 00 note l might be different from the original. Added automatic ally from request for surgery [id number] Bipolar Bipolar Disease Active [facility] disorder, disorder, 10-09 st unspecifie unspecifie 00:00: [place] d d 00 l Persistent Persistent Disease Active M ethodi depressive depressive 10-09 st disorder disorder 00:00: Hospit a 00 l Alcoholic Alcoholic Disease Active Met hodi cirrhosis cirrhosis 09-12 st of liver of liver 00:00: Hospit a 00 l 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 2 it y of y athy 00:00: [place] [address] Medical Branch Hepatic Hepatic Disease Active 2015-08 [facility] encephalop encephalop 08-26 st athy athy 00:00: Hospita 00 l S/P TIPS S/P TIPS Disease Active Metho di (transjugu (transjugu 05-08 st lar lar 00:00: Hospita intrahepat intrahepat 00 l ic ic portosyste portosyste jacqueline shunt) jacqueline shunt) Thrombocyt Thrombocyt Disease Active M ethodi openia openia 05-04 00:00: Hospita 00 l Cirrhosis Cirrhosis Disease Active Met hodi of liver of liver 05-04 not due to not due to 00:00: Ho spita alcohol alcohol 00 l Malnutriti Malnutriti Disease Active M ethodi on on 05-04 00:00: Hospita 00 l Right Right Disease Active Univers shoulder shoulder 4 ity of pain pain 00:00: [place] 00 [facility] Branch 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 12-01 ity of 00:00: [place] 00 Medical Branch Anxiety Anxiety Disease Active Univers and and 12-01 ity of depression depression [place] [facility] Rectal Rectal Disease Active 2014-08 Univers bleed bleed 2- ity of 00:00: [place] [address] Medical Branch Crohn Crohn Disease Active [facility] Allergies, Adverse Reactions, Alerts Allergy Allergy Status Severity Reaction(s) Onset Inactive Treating Comm ents Source Name Type Date Date Clinician FISH Allergy Active [facility] CONTAINI 2- NG 00:00: PRODUCTS 00 SHELLFIS Allergy Active [facility] H 2- CONTAINI 00:00: NG 00 PRODUCTS Eggshell Drug Active [facility] Membrane Allergy 09-07 [facility] - 00:[facility]: Medical 00 [place] EGGSHELL Allergy Active [facility] MEMBRANE 09-07 00:00: 00 CEFTRIAX Allergy [address] [facility] ONE 09-02 [facility] - 00:[facility]: Medical 00 [place] IODINE Allergy Active [facility] 09[facility] 00 Center PROMETHA Allergy Active [facility] ZINE 09-02 [facility] - 00:[facility]: Medical 00 [place] Ceftriax Propensi Active [facility] one ty to 09-02 [facility] - adverse 00:00: Medical reaction 00 Center s Iodine Propensi Active [facility] ty to 09-02 [facility] - adverse 00:00: Medical reaction 00 Center s Prometha Propensi Active [facility] zine ty to 09-02 [facility] - adverse 00:00: Medical reaction 00 Center s Ciproflo Propensi Active Hives 2020-08 Method i xacin ty to 0-13 st adverse 00:00: Hospita reaction 00 l s to drug Ceftriax Propensi Active Itching Metho di one ty to 2-25 st adverse 00:00: Hospita reaction 00 l s to drug Ceftriax Propensi Active Itching Unive rs one ty to 2- ity of adverse 00:00: [place] reaction 00 Medical s Branch Prometha Propensi Active Other - See Severe U nivers zine ty to comments 3-27 confusion ity o f adverse 00:00: [place] reaction 00 Medical s Branch Eggshell Propensi Active Diarrhea 2016-0 Egg yoke Me thodi Membrane ty to 2 st adverse 00:00: Hospita reaction 00 l s to drug Eggshell Propensi Active Diarrhea 2016- Egg yoke Un linda Membrane ty to 10-08 ity of adverse 00:00: [place] reaction 00 [facility] Branch Prometha Propensi Active Other (See Severe Me thodi zine ty to Comments) 1- confusion st adverse 00:00: Hospita reaction 00 l s to drug Shellfis Propensi Active Anaphylaxis 0 M ethodi h ty to 9 st Derived adverse 00:00: Hospita reaction 00 l s to drug Shellfis Propensi Active Anaphylaxis 0 U nivers h ty to 9-24 ity of Derived adverse 00:00: [place] reaction 00 [facility] s Branch Iodine Propensi Active Anaphylaxis SOB, [facility] to [facility] wheezing, st adverse 00:00: "my Hospita reaction 00 throat l s to closes drug up."*pt states cannot have topical nor IV Iodine Propensi Active Anaphylaxis Uni vers ty to 8-18 ity of adverse 00:00: [place] reaction 00 Medical s [place] NO KNOWN Allergy Active [facility] ALLERGIE S Phenerga Adverse Active Info Not [facility]I S t n Reaction Available [facility] Iodine Adverse Active Info Not [facility] Reaction Available kes [facility] Family History Family Member Diagnosis Comments Start Date Stop Date Source Natural father No Known Problems [facility] Natural mother No Known Problems [facility] Social History Social Habit Start Date Stop Date Quantity Comments Source History SDOH [facility] Alcohol Frequency Hospita l History SDOH [facility] Alcohol Std Drinks Hospit al History SDOH [facility] Alcohol B[facility] Exposure to Not sure University of SARS-CoV-2 (event) [facility] Alcohol intake 2021-08-30 2021-08-30 Ex-drinker [facility] 00:00:00 00:00:00 (finding) Hospital Tobacco use and 2019-01-30 2019-01-30 Never used Universit y of exposure 00:00:00 00:00:00 [facility] History of tobacco 1979-01-30 2018-08-12 Cigarette Smoker University of use 00:00:00 00:00:00 [facility] Cigarettes smoked 2016-11-22 2016-11-[address] current (pack per 00:00:00 00:00:00 Hospita l day) - Reported Cigarette 2016-11-22 2016-11-22 [facility] pack-years 00:00:00 00:00:00 Hospital Tobacco Comment 2016-09-12 2016-09-12 smokes 5 [facility] 00:00:00 00:00:00 cigarettes per Hospital day Alcohol Comment 2016-05-02 2016-05-02 Former social Method ist 00:00:00 00:00:00 alcohol use, quit Hospita l several years ago; denies history of heavy alcohol use Sex Ass[birth year] [facility] 00:00:00 00:00:00 Hospital Smoking Status Start Date Stop Date Source Never smoker [facility] Ex-smoker 2016-11-22 00:00:00 2016-11-22 [facility] Ordered Filled Start Stop Current Ordering Indication Dosage Frequency Signature Comments Components Source Medication Medication Date Date Medication? Clinician (SIG) Name Name estradioL Yes [id number] Apply 1g Univers (ESTRACE) 2- vaginally ity o f 0.01 % (0.1 00:00: at bedtime [place] mg/gram) 00 every Medical vaginal night for Branch cream 2 weeks and then apply 1g vaginally at bedtime 3 times per week (Saturday//) nystatin Yes [id number] Apply to U nivers (NYSTOP) 2- area(s) 3 ity of 100,000 00:00: (three) [place] unit/gram 00 times Medical powder daily. Branch methylnaltr Yes Take by Un linda exone 2-16 mouth. ity of bromide 14:28: [place] (RELISTOR 49 Medical ORAL) Branch potassium Yes Take by [place] [facility] ers (POTASSIMIN 2-16 mouth once it y of ORAL) 14:28: now. [address] spironolact Yes 100mg Take 100 U nivers one 100 mg 2-16 mg by ity of tablet 14:28: mouth. [address] cyanocobala Yes 1000ug Inject [facility] min 1-24 1,000 mcg [facility] - (VITAMIN 16:29: subcutaneo Med ical B-12) 1,000 58 usly every Ce nter mcg/mL 30 injection (thirty) days. ondansetron Yes 4mg Take [address] (ZOFRAN) 4 1-24 by mouth 2 Alejo es - MG tablet 16:28: (two) Medical 14 times Center daily as needed for Nausea. ubrogepant Yes 100mg Take [address] (Ubrelvy) 1-24 mg by [facility] - 100 mg Tab 16:27: mouth 2 Medi cj 54 (two) Center times daily as needed. pantoprazol Yes 1{tbl} QD Take [address] e 1-24 tablet by [facility] - (PROTONIX) 16:27: mouth Medica l 40 MG 53 daily. Center tablet QUEtiapine Yes 1{tbl} QD Take [address] (SEROqueL) 1-24 tablet by Luke s - 50 MG 16:27: mouth Medical tablet 53 nightly. Center rifAXIMin Yes 1{tbl} Q.5D Take [address] (Xifaxan) 1-24 tablet by [facility] - 550 mg Tab 16:27: mouth 2 Medi cj 53 (two) Center times daily. spironolact Yes 25mg QD Take [address] one 1-24 by mouth [facility] - (ALDACTONE) 16:27: daily. Medi cj 50 MG 53 Center tablet thiamine Yes 1{tbl} QD Take 1 [facility]I S t 100 MG 1-24 tablet by [facility] - tablet 16:27: mouth Medical 53 daily. Center topiramate Yes 1{tbl} QD Take [address] (TOPAMAX) 1-24 tablet by [facility] - 50 MG 16:27: mouth Medical tablet 53 nightly. Center eszopiclone Yes 2mg Take [address] (LUNESTA) 2 1-24 by mouth Luke s - MG tablet 16:27: every Medical 52 night as Center needed. gabapentin Yes 1{capsu Q.5D Take [address] (NEURONTIN) 1-24 le} capsule by Susanna kes - 300 MG 16:27: mouth 2 Medical capsule 52 (two) Center times daily. lactulose Yes 1{packe Q.[id number] Take [address] (Kristalose 1-24 t} [id number] packet by [facility] - ) 20 gram 16:27: 3D mouth 3 Medic al packet 52 (three) Center times daily. azithromyci 2021- No 500mg QD Take 1 Me thodi n -[address] (ZITHROMAX) 00:00: 05:59 (500 mg Ho spita 500 MG 00 :00 total) by l tablet mouth daily for 3 days. Take first 2 tablets together, then 1 every day until finished. gabapentin Yes 300mg QD Take 300 Me thodi (NEURONTIN) 1-[address] 300 mg 18:28: mouth Hospita capsule 02 nightly as l needed. Takes in addition to scheduled twice daily dosing ondansetron Yes 4mg Q8H Take 4 mg M ethodi ODT 1-[address] (ZOFRAN-ODT 18:28: every 8 Hos lis ) 4 MG 02 (eight) l disintegrat hours as ing tablet needed for nausea or vomiting. pantoprazol 2021- No 40mg QD Take 40 mg Methodi e -[address] (PROTONIX) 18:28: 00:00 daily. Hosp page 40 MG EC 02 :00 l tablet lactulose 2021- No 1{packe Q.25D Take 1 M ethodi (Kristalose 08-25 t} packet by st ) 20 gram 18:28: 00:00 mouth 4 Hosp page packet 50 :00 (four) l times a day. Goal 2-4 bowel movements per day QUEtiapine 2021-0 2021- No 50mg QD Take 50 mg [facility]i (SEROqueL) 08-[address] 50 MG 18:28: 00:00 daily. Hospita tablet 50 :00 l gabapentin 2021-0 Yes 300mg Q.5D Take 300 Me thodi (NEURONTIN) 1-[address] 300 mg 18:28: mouth 2 Hospita capsule 49 (two) l times a day. Also may take 1 additional dose as needed at bedtime spironolact 2021-0 Yes 50mg QD Take 50 mg [facility]i one [address] (ALDACTONE) 18:28: daily. Hosp page 50 MG 49 l tablet cetirizine 0 Yes 10mg QD Take 10 mg M ethodi (ZyrTEC) [address] MG tablet 18:28: every Hospita 48 morning. l cyanocobala 0 Yes 1000ug Q30D Inject Me thodi min 1,000 1-14 1,[address] mcg/mL 18:28: into the Hospita injection 48 shoulder, l thigh, or buttocks every 30 (thirty) days. riFAXimin 2021-0 Yes 550mg Q.5D Take 550 Met hodi (XIFAXAN) 1-[address] 550 mg 18:28: mouth 2 Hospita tablet 48 (two) l times a day. ubrogepant 2021-0 Yes 100mg Q.5D Take 100 Me thodi (Ubrelvy) 1-[address] 100 mg 18:28: mouth 2 Hospita tablet 48 (two) l times a day as needed (headache) . clonAZEPAM 2-0 Yes .5mg Q24H Take 0.5 Met hodi (KlonoPIN) 1-[address] 0.5 MG 18:28: mouth Hospita tablet 48 daily as l needed for anxiety. [facility]: Last filled: 11/06/20 Quantity: 30 Days Supply: 30 topiramate 2021-0 Yes 50mg Q.5D Take 50 mg M ethodi (TOPAMAX) 1-[address] 50 MG 18:28: (two) Hospita tablet 48 times a l day. benztropine 0 Yes .25mg Q.5D Take 0.25 Methodi (COGENTIN) 1-[address] 0.5 MG 18:28: mouth 2 Hospita tablet 48 (two) l times a day. primidone Yes 25mg QD Take 25 mg Me thodi (MYSOLINE) 1-[address] 50 MG 18:28: nightly. Hospita tablet 48 l eszopiclone 0 Yes 3mg QD Take 3 mg M ethodi (LUNESTA) 3 1-[address] mg tablet 18:28: nightly. Hosp page 48 [facility] records: Last filled: 08/09/21 Quantity: 30 Days Supply: 30 traMADoL 0 Yes 50mg Q4H Take 50 mg Met hodi (ULTRAM) 50 -[address] mg tablet 18:28: every 4 Hospi ta 48 (four) l hours as needed for moderate pain. Per [facility] on Drug Monitoring Program records: Last filled: 01/16/21 Quantity: 30 Days Supply: 5 zinc 2021- No 1{capsu QD Take 1 Methodi sulfate 08-22 le} capsule by st (ZINCATE) 00:00: 05:59 mouth Hospit a 50 mg zinc 00 :00 daily for l (220 mg) 30 days. capsule thiamine 2021- No 100mg QD Take 100 Met hodi mononitrate 08-[address] , vit B1, 10:29: 00:00 mouth Hospit a (B-1) 100 47 :00 daily. l mg tablet QUEtiapine 2021- No 50mg QD Take 50 mg Methodi (SEROquel) 08-[address] 200 MG 10:29: 00:00 nightly. Hospit a tablet 47 :00 l SUMAtriptan 0 Yes [id number] 50mg Q24H Take 1 [facility]i (Imitrex) -10 tablet (50 st 50 MG 00:00: mg total) Hospita tablet 00 by mouth l daily as needed for migraine for up to 30 doses. May repeat in 2 hours if unresolved . Max dose 200 mg/day escitalopra No 10mg QD Take 1 Met hodi m (LEXAPRO) 08-21 tablet (10 s t 10 MG 00:00: 05:59 mg total) Hospit a tablet 00 :00 by mouth l nightly for 30 days. pantoprazol No [id number] 40mg QD Take 1 Methodi e 08-21 tablet (40 st (PROTONIX) 00:00: 05:59 mg total) H ospita 40 MG EC 00 :00 by mouth l tablet every morning for 30 days. QUEtiapine 50mg QD Take 1 Meth erasto (SEROquel) 08-21 tablet (50 st 50 MG 00:00: 05:59 mg total) Hospit a tablet 00 :00 by mouth l nightly for 30 days. thiamine No 100mg QD Take 1 Metho di mononitrate 08-[address] , vit B1, 00:00: 05:59 (100 mg Hosp page (B-1) 100 00 :00 total) by l mg tablet mouth daily for 30 days. lactulose 20g Q.25D Take 1 Meth erasto (Kristalose 08-21 packet (20 s t ) 20 gram 00:00: 05:59 g total) Hos lis packet 00 :00 by mouth 4 l (four) times a day for 30 days. SUMAtriptan No TAKE AT Me thodi (IMITREX) 08-[address] 100 MG 09:56: 00:00 HEADACHE. Hospi ta tablet 24 :00 MAY REPEAT l IN 2 HOURS IF NO RELIEF. MAXIMUM OF 2 IN 24 HOURS. Oral furosemide No 20mg Take 20 mg [facility]i (LASIX) 20 08-[address] mg tablet 09:53: 00:00 Hospita 21 :00 l escitalopra No 10mg Take 10 mg Methodi m (LEXAPRO) 08-[address] 10 MG 09:53: 00:00 Hospita tablet 08 :00 l cyanocobala 2021- No 1000ug Take 1,000 Methodi min 08-19-[address] (VITAMIN 09:52: 00:00 mouth. Hospit a B-12) 1000 53 :00 l MCG tablet benztropine 2021- No 1 tablet M ethodi (COGENTIN) 08-19-[address] 0.5 MG 09:52: 00:00 Orally Hospita tablet 26 :00 Once a day l nitrofurant 2020-08- No 100mg Q.5D Take 1 Me thodi oin, [address] macrocrysta 00:00: 00:00 (100 mg Ho spita l-monohydra 00 :00 total) by l te, mouth 2 (MACROBID) (two) 100 MG times a capsule day for 5 days. eszopiclone 2020-08 No 3mg QD Take 3 mg Methodi (LUNESTA) 3 0-22 10-[address] mg tablet 14:16: 00:00 nightly. Hos lis 40 :00 Take l immediatel y before bedtime eszopiclone 2020-08- No 1mg QD Take 1 Met hodi (LUNESTA) 1 0-22 11-22 tablet (1 st MG tablet 00:00: 05:59 mg total) Ho spita 00 :00 by mouth l nightly for 30 days. Take immediatel y before bedtime ondansetron 2020-08 No Metho di (ZOFRAN) 4 0-04 01-08 st MG tablet 00:00: 00:00 Hospita 00 :00 l zinc 2020- No 220mg QD Take 1 Methodi sulfate 3-15 04-[address] (ZINCATE) 00:00: 04:59 (220 mg Hosp page 220 (50) mg 00 :00 total) by l capsule mouth daily for 30 days. methylPREDN 2020- No follow Met hodi ISolone 2-28 03-[address] (MEDROL 00:00: 05:59 directions Hos lis DOSEPAK) 4 00 :00 l mg tablet ibuprofen 2020- No 400mg Q8H Take 1 Meth erasto (ADVIL) 400 10-09 03-[address] MG tablet 00:00: 05:59 (400 mg Hosp page 00 :00 total) by l mouth every 8 (eight) hours as needed for moderate pain, fever or headaches for up to 5 days. zinc 2020- No 220mg QD Take 1 Methodi sulfate 09-22 03-[address] (ZINCATE) 00:00: 00:00 (220 mg Hosp page 220 (50) mg 00 :00 total) by l capsule mouth daily for 30 days. eszopiclone 2020- No 1mg QD Take 1 mg Methodi (LUNESTA) 1 09-21 02-[address] MG tablet 14:27: 00:00 nightly. Hos lis 44 :00 Take l immediatel y before bedtime topiramate 2020- No 50mg QD Take 1 Meth erasto (TOPAMAX) 09-02 tablet (50 st 50 MG 00:00: 00:00 mg total) Hospit a tablet 00 :00 by mouth l daily. furosemide 2021- No 20mg QD Take 1 Meth erasto (LASIX) 20 08-13 tablet (20 st mg tablet 00:00: 00:00 mg total) Ho spita 00 :00 by mouth l daily for 30 days. escitalopra 2021- No 10mg QD Take 1 Met hodi m (LEXAPRO) 08-13 tablet (10 s t 10 MG 00:00: 00:00 mg total) Hospit a tablet 00 :00 by mouth l nightly. primidone 2020- No 25mg QD Take 0.5 Met hodi (MYSOLINE) 08-[address] 50 MG 00:00: 00:00 (25 mg Hospita tablet 00 :00 total) by l mouth nightly. May cut tablet in 1/2 half brexpiprazo 2020- No 2mg QD Take 1 Met hodi le 08-13 tablet (2 st (Rexulti) 2 00:00: 05:59 mg total) Hospita mg tablet 00 :00 by mouth l tablet daily for 30 days. QUEtiapine No 50mg QD Take 1 Meth erasto (SEROquel) 08-13 tablet (50 st 50 MG 00:00: 05:59 mg total) Hospit a tablet 00 :00 by mouth l nightly for 30 days. spironolact No 50mg QD Take 1 Met hodi one 04-22 tablet (50 st (ALDACTONE) 00:00: 00:00 mg total) Hospita 50 MG 00 :00 by mouth l tablet daily for 30 days. lactulose No 20g Q.25D Take 1 Meth erasto (Kristalose 04-21 packet (20 s t ) 20 gram 00:00: 00:00 g total) Hos lis packet 00 :00 by mouth 4 l (four) times a day for 30 days. gabapentin No 300mg Q.[id number] Take 1 [facility]i (NEURONTIN) 04-[id number] 300 mg 00:00: 00:00 3D (300 mg Hospita capsule 00 :00 total) by l mouth 3 (three) times a day for 30 days. pantoprazol [id number] 40mg QD Take 1 Methodi e 01-24 tablet (40 st (PROTONIX) 00:00: 00:00 mg total) H ospita 40 MG EC 00 :00 by mouth l tablet every morning. SUMAtriptan [id number] 50mg Q24H Take 1 Methodi (Imitrex) 01-24 tablet (50 st 50 MG 00:00: 00:00 mg total) Hospit a tablet 00 :00 by mouth l daily as needed for migraine for up to 30 doses. May repeat in 2 hours if unresolved . Max dose 200 mg/day eszopiclone Yes 2mg Take 2 mg U nivers 2 mg tablet 03-09 by mouth ity of 16:42: at [place] [address] bedtime. Medical Branch GABAPENTIN Yes Take by Uni vers ORAL 03-09 mouth. ity of 16:42: [place] [address] Medical Branch traMADOL 50 Yes 50mg Take 50 mg Univers mg tablet 03-09 by mouth ity of 16:42: as needed [place] 13 for Pain Medical (scale Branch 7-10). lactulose Yes [id number] 20g Take 1 Un linda (KRISTALOSE 7-29 Packet by ity of ) 20 gram 00:00: mouth 3 [place] packet 00 (three) Medical times Branch daily. ondansetron Yes [id number] 8mg Take 2 Univers 4 mg tablet 4-01 tablets by it y of 00:00: mouth [place] 00 every 8 Medical (eight) Branch hours as needed for Nausea and Vomiting (N/V). butalbital- Yes [id number] 1{capsu Take 1 Univers aspirin-caf 3-25 le} capsule by it y of feine 00:00: mouth [place] 50-325-40 00 every 4 Medical mg per (four) Branch capsule hours as needed for Pain (headache unrelieved wtih other medication s). XIFAXAN 550 2016-08 Yes [id number] TAKE ONE Univers mg tablet 1-27 TABLET BY ity o f 00:00: MOUTH 2 [place] 00 TIMES A Medical DAY Branch PANTOPRAZOL 2016-08 Yes [id number] TAKE ONE Univers E 40 mg EC 1-27 TABLET BY ity of tablet 00:00: MOUTH [place] 00 EVERY DAY Medical Branch acetaminoph Yes 1{tbl} [...] [place] 00 (three) Medical times Branch daily. furosemide 2015-08 Yes 40mg Take 40 mg U nivers 40 mg 0-10 by mouth. ity of tablet 00:00: [place] 00 Medical Branch Allopurinol Allopurinol Yes Fernando 2 tablets [facility] Immunizations Ordered Filled Immunization Date Status Comments Sourc e Immunization Name Name Influenza Virus 2021-04-12 Completed Universit y of Vaccine 00:00:00 [facility] [place] [facility] SARS-COV-2 COVID-19 2020-12-14 Completed Unive rsity of YANIRA/J&J VACCINE 00:00:00 [facility] Influenza (IM) 2018-04-21 Completed [facility] Preservative Free 00:00:00 Hospita l Influenza Virus 2018-04-21 Completed Universit y of Vaccine (3+ yrs) 00:00:00 [facility] dical Branch Pneumococcal 2016-05-08 Completed [facility] Conjugate 13-Valent 00:00:00 Hospi mateo FLUCELVAX QUAD PF 2016-05-[address] 00:00:00 Hospital Pneumococcal 13 2016-05-08 Completed Universit y of Conjugate, PCV13 00:00:00 [facility] (Prevnar 13) [place] Vital Signs Vital Name Observation Time Observation Value Comments Source Systolic blood 2021-11-16 18:59:00 111 mm[Hg] Univer sity [facility] Diastolic blood 2021-11-16 18:59:00 74 mm[facility]Hg[facility] 2021-11-16 18:59:00 75 /min [facility] Body temperature 2021-11-16 18:59:00 36.67 [facility] height 2021-11-16 18:59:00 149.9 cm [facility] Body weight 2021-11-16 18:59:00 80.559 kg [facility] BMI 2021-11-16 18:59:00 35.87 kg/m2 [facility] HEIGHT 2021-09-02 15:44:00 149.9 cm WEIGHT 2021-09-02 15:44:00 87.091 kg HEIGHT 2021-09-02 15:44:00 149.9 cm WEIGHT 2021-09-02 15:44:00 87.091 kg Systolic blood 2021-09-11 19:42:00 125 mm[Hg] [facility] Diastolic blood 2021-09-11 19:42:00 60 mm[Hg] [facility] Heart rate 2021-09-11 19:42:00 98 /min [facility] Body temperature 2021-09-11 19:42:00 35.67 Georgette [facility] Respiratory rate 2021-09-11 19:42:00 18 /min [facility] Oxygen saturation in 2021-09-11 19:42:00 100 /min [facility] Arterial blood by Medical Ce nter Pulse oximetry Body height 2021-09-02 15:44:00 149.9 cm [facility] Body weight 2021-09-02 15:44:00 87.091 kg [facility] BMI 2021-09-02 15:44:00 38.78 kg/m2 [facility] Systolic blood 2021-08-31 06:30:00 119 mm[Hg] [facility] pressure Diastolic blood 2021-08-31 06:30:00 68 mm[Hg] [facility] pressure Heart rate 2021-08-31 06:30:00 70 /min [facility] Respiratory rate 2021-08-31 06:30:00 16 /min [facility] Oxygen saturation in 2021-08-31 06:30:00 97 /min [facility] Arterial blood by Pulse oximetry Body temperature 2021-08-31 04:04:09 36.83 Georgette [facility] Body height 2021-08-31 04:04:00 149.9 cm [facility] Body weight 2021-08-31 04:04:00 89.359 kg [facility] BMI 2021-08-31 04:04:00 39.79 kg/m2 [facility] Procedures Procedure Date / Time Performing Clinician Source Performed HEPATIC FUNCTION PANEL 2021-09-11 05:33:00 Niya Cartagena [facility] CBC W/PLT COUNT & AUTO 2021-09-11 05:33:00 Niya Cartagena [facility] PROTHROMBIN TIME/INR 2021-09-11 05:33:00 Niya Cartagena [facility] BASIC METABOLIC PANEL (7) 2021-09-11 05:33:00 Niya Cartagena [facility] MAGNESIUM 2021-09-11 05:33:00 Selma Lu [facility] CBC W/PLT COUNT & AUTO 2021-09-11 05:33:00 Niya Cartagena [facility] HEPATIC FUNCTION PANEL 2021-09-10 06:52:00 [facility] W/[facility]T COUNT & AUTO 2021-09-10 06:52:00 [facility]/INR 2021-09-10 06:52:00 KaHenry rmlizulma White [facility] BASIC METABOLIC PANEL (7) 2021-09-10 06:52:00 Kaim Niyalilian Haile [facility] MAGNESIUM 2021-09-10 06:52:00 Selma Lu [facility] CBC W/PLT COUNT & AUTO 2021-09-10 06:52:00 [facility] FUNCTION PANEL 2021-09-09 05:51:00 Kajag [facility] W/PLT COUNT & AUTO 2021-09-09 05:51:00 [facility] PROT[facility]OMBIN TIME/INR 2021-09-09 05:51:00 Mitzi Niya [facility] BASIC METABOLIC PANEL (7) 2021-09-09 05:51:00 KaNiya rmalireza [facility] CBC W/PLT COUNT & AUTO 2021-09-09 05:51:00 Lizzjag Niya [facility] (CELLAVISION MANUAL DIFF) 2021-09-09 05:51:00 Lizzjag Niya Allalireza [facility] AMMONIA 2021-09-08 10:54:00 Selma Lu [facility] PHOSPHORUS 2021-09-08 05:14:00 Zara Mason [facility] HEPATIC FUNCTION PANEL 2021-09-08 05:14:00 Kaim [facility] CBC W/PLT COUNT & AUTO 2021-09-08 05:14:00 KaNiya rm [facility] PROTHROMBIN TIME/INR 2021-09-08 05:14:00 KaimHenryNiyazulma White [facility] BASIC METABOLIC PANEL (7) 2021-09-08 05:14:00 KaNiya rm on [facility] CBC W/PLT COUNT & AUTO 2021-09-08 05:14:00 KaimNiya [facility] (CELLAVISION MANUAL DIFF) 2021-09-08 05:14:00 KaimNiya on [facility] PHOSPHORUS 2021-09-07 05:37:00 Isabella, [facility] HEPATIC FUNCTION PANEL 2021-09-07 05:37:00 Kaim Niyazulma White [facility] CBC W/PLT COUNT & AUTO 2021-09-07 05:37:00 KaimNiya [facility] PROTHROMBIN TIME/INR 2021-09-07 05:37:00 Kaim Niyazulma White [facility] BASIC METABOLIC PANEL (7) 2021-09-07 05:37:00 LizzimNiya on [facility] CBC W/PLT COUNT & AUTO 2021-09-07 05:37:00 Lizzim Niyazulma White [facility] (CELLAVISION MANUAL DIFF) 2021-09-07 05:37:00 KaimNiya on [facility] PROTHROMBIN TIME/INR 2021-09-06 06:37:00 Kaim Niyazulma White [facility] BASIC METABOLIC PANEL (7) 2021-09-06 06:37:00 IsabellaGianna kennedynalin i [facility] PHOSPHORUS 2021-09-06 06:37:00 Isabella, [facility] PROTHROMBIN TIME/INR 2021-09-05 14:31:00 Niya Cartagena [facility] BASIC METABOLIC PANEL (7) 2021-09-05 14:31:00 Mable Mason i [facility] PHOSPHORUS 2021-09-05 14:31:00 Zara Mason [facility] CBC W/PLT COUNT & AUTO 2021-09-05 14:31:00 Zara Mason [facility] HEPATIC FUNCTION PANEL 2021-09-05 14:31:00 Zara Mason [facility] CBC W/PLT COUNT & AUTO 2021-09-05 14:31:00 Zara Mason [facility] (CELLAVISION MANUAL DIFF) 2021-09-05 14:31:00 Isabella, [facility] C. DIFFICILE GDH TOXIN 2021-09-04 11:52:00 Jaqueline Vitale [facility] CT ABDOMEN/PELVIS WITH IV 2021-09-04 09:03:[address] [facility] CT CHEST WITH IV CONTRAST 2021-09-04 09:03:00 Isabella Mable [facility] CBC W/PLT COUNT & AUTO 2021-09-04 04:39:00 Lucia Lawrence [facility] COMPREHENSIVE METABOLIC 2021-09-04 04:39:00 Lucia Lawrence [facility] MAGNESIUM 2021-09-04 04:39:00 Lucia Lawrence [facility] PHOSPHORUS 2021-09-04 04:39:00 Lucia Lawrence [facility] CBC W/PLT COUNT & AUTO 2021-09-04 04:39:00 Lucia Lawrence [facility] (CELLAVISION MANUAL DIFF) 2021-09-04 04:39:00 Lucia Lawrence sa [facility] HEPATITIS A ANTIBODY, IGG 2021-09-03 12:02:00 Juve Masnoin i [facility] HEPATITIS B CORE ANTIBODY, 2021-09-03 12:02:[address] [facility] TOTAL [facility] HEPATITIS B SURFACE 2021-09-03 12:02:[address] [facility] ANTIBODY [facility] HEPATITIS B SURFACE 2021-09-03 12:02:[address] [facility] ANTIGEN [facility] HEPATITIS C ANTIBODY 2021-09-03 12:02:00 Gianna Masonnalini [facility] CBC W/PLT COUNT & AUTO 2021-09-03 12:01:00 Lucia Lawrence [facility] COMPREHENSIVE METABOLIC 2021-09-03 12:01:00 Lucia Lawrence [facility] MAGNESIUM 2021-09-03 12:01:00 Lucia Lawrence [facility] PHOSPHORUS 2021-09-03 12:01:00 Lucia Lawrence [facility] PROTHROMBIN TIME/INR 2021-09-03 12:01:00 Jr White [facility] CBC W/PLT COUNT & AUTO 2021-09-03 12:01:00 Lucia Lawrence [facility] (CELLAVISION MANUAL DIFF) 2021-09-03 12:01:00 Lucia Lawrence sa [facility] BLOOD CULTURE 2021-09-03 11:59:00 Lucia Lawrence [facility] OVA AND PARASITE 2021-09-02 09:44:00 Troy Awadil [facility] GI PATHOGEN PROFILE BY PCR 2021-09-02 09:44:00 Troy Awad Bladimir il [facility] BLOOD CULTURE 2021-09-02 06:03:00 Lucia Lawrence [facility] CBC W/PLT COUNT & AUTO 2021-09-02 06:03:00 Lucia Lawrence [facility] COMPREHENSIVE METABOLIC 2021-09-02 06:03:00 Lucia Lawrence [facility] MAGNESIUM 2021-09-02 06:03:00 Lucia Lawrence [facility] PHOSPHORUS 2021-09-02 06:03:00 Lucia Lawrence [facility] C-REACTIVE PROTEIN 2021-09-02 06:03:00 Lucia Lawrence [facility] CBC W/PLT COUNT & AUTO 2021-09-02 06:03:00 Lucia Lawrence [facility] (CELLAVISION MANUAL DIFF) 2021-09-02 06:03:00 Lucia Lawrence sa [facility] IRON, TIBC, % SAT. 2021-09-02 06:01:[address] [facility] (WITHOUT FERRITIN) [facility] VITAM[facility] B12 AND FOLATE 2021-09-02 06:01:00 Lucia Lawrence [facility] CT BRAIN WITHOUT IV 2021-09-02 02:39:[address] [facility] CONTRAST [facility] US ABDOMEN LIMITED 2021-09-02 02:09:00 [facility] 2021-09-02 01:29:00 Lucia Lawrence [facility] URINALYSIS W/ REFLEX URINE 2021-09-02 01:29:00 Lucia Lawrence [facility] XR CHEST 1 VIEW PORTABLE / 2021-09-02 01:02:00 Lucia Lawrence [facility] CBC W/PLT COUNT & AUTO 2021-09-01 22:55:00 [facility] LACT[facility], VENOUS 2021-09-01 22:55:00 [facility] 2021-09-01 22:55:00 Lucia Lawrence [facility] HEPATIC FUNCTION PANEL 2021-09-01 22:55:00 Lucia Lawrence [facility] BASIC METABOLIC PANEL (7) 2021-09-01 22:55:00 Lucia Lawrence sa [facility] MAGNESIUM 2021-09-01 22:55:00 Lucia Lawrence [facility] PHOSPHORUS 2021-09-01 22:55:00 Lucia Lawrencessa [facility] CBC W/PLT COUNT & AUTO 2021-09-01 22:55:00 Lucia Lawrence [facility] (CELLAVISION MANUAL DIFF) 2021-09-01 22:55:00 Lucia Lawrence [facility] POCT-GLUCOSE METER 2021-09-01 22:36:[address] [facility] ABDOMEN PELVIS WO 2021-08-31 05:50:00 [facility] CONTRAST [facility] HC COMPLETE BLD COUNT 2021-08-31 04:21:00 [facility] W/AUTO DIFF [facility] COMPREHENSIVE METABOLIC 2021-08-31 04:21:00 [facility] PANEL [facility] LACTIC ACID, I-STAT 2021-08-31 04:21:00 [facility] ESTIMATED GFR 2021-08-31 04:21:00 [facility] SPIROMETRY, DIFFUSION, 2021-08-25 19:27:26 [facility] LUNG VOLUMES, MIPS/MEPS XR CHEST 2 VW 2021-08-25 18:00:20 [facility] XR PANOREX 2021-08-25 17:59:56 [facility] POC GLUCOSE 2021-08-25 13:51:00 [facility] spital SALEEM-POSEY VIRUS 2021-08-25 11:08:00 [facility] ANTIBODY TEST HC COMPLETE BLD COUNT 2021-08-25 11:08:00 Jennifer Ghosh [facility] W/AUTO DIFF COMPREHENSIVE METABOLIC 2021-08-25 11:08:00 Jennifer Ghosh [facility] PANEL PROTHROMBIN TIME WITH INR 2021-08-25 11:08:00 [facility] ESTIMATED GFR 2021-08-25 11:08:00 Jennifer Ghosh spital POC GLUCOSE 2021-08-25 03:18:00 Jennifer Ghosh Ho spital POC GLUCOSE 2021-08-25 00:22:00 Jennifer Ghosh spital POC GLUCOSE 2021-08-24 19:43:00 Jennifer Ghosh CREATININE LEVEL, URINE, 2021-08-24 18:13:00 Jennifer Ghosh [facility] TIMED PROTEIN, URINE, TIMED 2021-08-24 18:13:00 Jennifer Ghosh [facility] CV SELECTIVE CORONARY 2021-08-24 16:44:00 Cabrera Fierro [facility] ANGIOGRAPHY [place] HC COMPLETE BLD COUNT 2021-08-24 11:01:00 [facility] W/AUTO DIFF [place] BASIC METABOLIC PANEL 2021-08-24 11:01:00 [facility] HE[facility] FUNCTION PANEL 2021-08-24 11:01:00 [facility] MAGNESIUM LEVEL 2021-08-24 11:01:00 Alma Girard PROTHROMBIN TIME WITH INR 2021-08-24 11:01:00 [facility] ESTIMATED GFR 2021-08-24 11:01:00 Alma Girard [facility] POC GLUCOSE 2021-08-24 03:07:00 Jennifer Ghosh Ho spital POC GLUCOSE 2021-08-24 00:11:00 Jennifer Ghosh COVID-19 QUALITATIVE 2021-08-23 22:15:00 Dayo Moeller [facility] RT-PCR POC GLUCOSE 2021-08-23 19:17:00 Jennifer Ghosh POC GLUCOSE 2021-08-23 14:05:00 Jennifer Ghosh Ho spital HC COMPLETE BLD COUNT 2021-08-23 11:49:00 [facility] W/AUTO DIFF [facility] BASIC METABOLIC PANEL 2021-08-23 11:49:00 [facility] HEPATIC FUNCTION PANEL 2021-08-23 11:49:00 [facility] MAGNESIUM LEVEL 2021-08-23 11:49:00 [facility] PROTHROMBIN TIME WITH INR 2021-08-23 11:49:00 [facility] ALPHA FETOPROTEIN 2021-08-23 11:49:00 [place] ALPHA-1 ANTITRYPSIN LEVEL 2021-08-23 11:49:00 [facility] ANTI SMOOTH MUSCLE AB 2021-08-23 11:49:00 [facility] SCREEN C-REACTIVE PROTEIN 2021-08-23 11:49:00 [facility] CANCER ANTIGEN 125 2021-08-23 11:49:00 [facility] CANCER ANTIGEN 19-9 2021-08-23 11:49:00 [facility] CARCINOEMBRYONIC ANTIGEN 2021-08-23 11:49:00 [facility] (CEA) CERULOPLASMIN LEVEL 2021-08-23 11:49:00 [facility] CORTISOL LEVEL, RANDOM 2021-08-23 11:49:00 [facility] CORTISOL, FREE BY 2021-08-23 11:49:00 [place] ED/LC-MS/MS CYTOMEGALOVIRUS AB, IGG 2021-08-23 11:49:00 [facility] CYTOMEGALOVIRUS AB, IGM 2021-08-23 11:49:00 [facility] DRUG KIM 9, SER/THAIS, SCRN 2021-08-23 11:49:00 [facility] W/RFLX TO CONF FERRITIN LEVEL 2021-08-23 11:49:00 [facility] FIBRINOGEN 2021-08-23 11:49:00 [facility] HEPATITIS A ANTIBODY IGM 2021-08-23 11:49:00 [facility] HEPATITIS A ANTIBODY TOTAL 2021-08-23 11:49:00 [facility] HEPATITIS B CORE ANTIBODY 2021-08-23 11:49:00 [facility] TOTAL HEPATITIS B SURFACE 2021-08-23 11:49:00 [facility] ANTIBODY HEPATITIS B SURFACE 2021-08-23 11:49:00 [facility] ANTIGEN HEPATITIS C ANTIBODY 2021-08-23 11:49:00 [facility] HIV AG/AB COMBINATION 2021-08-23 11:49:00 [facility] HIV-1 RNA, QUALITATIVE TMA 2021-08-23 11:49:00 [facility] HLA TRANSPLANT EVALUATION 2021-08-23 11:49:00 [facility] LIPID PANEL 2021-08-23 11:49:00 [facility] BARBITURATES, S/P, QUANT 2021-08-23 11:49:00 [facility] PARTIAL THROMBOPLASTIN 2021-08-23 11:49:00 [facility] TIME (PTT) PHOSPHATIDYLETHANOL, BLOOD 2021-08-23 11:49:00 [facility] PHOSPHORUS LEVEL 2021-08-23 11:49:00 [facility] PREALBUMIN LEVEL 2021-08-23 11:49:00 [facility] SERUM ELECTROPHORESIS 2021-08-23 11:49:00 [facility] SYPHILIS TREPONEMA SCREEN 2021-08-23 11:49:00 [facility] WITH RPR CONFIRMATION (REVERSE ALGORITHM) T3, FREE 2021-08-23 11:49:00 [facility] TB T-SPOT 2021-08-23 11:49:00 [facility] TOTAL IRON BINDING 2021-08-23 11:49:00 [facility] CAPACITY ZINC LEVEL, SERUM 2021-08-23 11:49:00 [place] ESTIMATED GFR 2021-08-23 11:49:00 Alma Girard SINGLE ANTIGEN BEADS 2021-08-23 11:49:00 [facility] C1Q CLASS 1 & 2 ANTIBODY 2021-08-23 11:49:[address] [facility] CT CHEST WO CONTRAST 2021-08-23 04:25:00 [facility] POC GLUCOSE 2021-08-23 02:55:00 Jennifer Ghosh US CAROTID DUPLEX 2021-08-23 02:40:00 [facility] BILATERAL TTE COMPLETE, WO CONTRAST, 2021-08-22 23:47:00 [facility] W AGITATED SALINE ([id number]) US ABDOMEN COMPLETE 2021-08-22 22:30:00 [facility] ECG 12-LEAD 2021-08-22 21:31:09 [facility] POC GLUCOSE 2021-08-22 13:43:00 Jennifer Ghosh HC COMPLETE BLD COUNT 2021-08-22 10:59:00 [facility] W/AUTO DIFF [place] BASIC METABOLIC PANEL 2021-08-22 10:59:00 [facility] HEPATIC FUNCTION PANEL 2021-08-22 10:59:00 [facility] MAGNESIUM LEVEL 2021-08-22 10:59:00 Alma Girard [facility] PHOSPHORUS LEVEL 2021-08-22 10:59:00 Alma Girard ospital [place] PROTHROMBIN TIME WITH INR 2021-08-22 10:59:00 [facility] ESTIMATED GFR 2021-08-22 10:59:00 Alma Girard spital [place] POC GLUCOSE 2021-08-22 03:06:00 Jennifer Ghosh Ho spital POC GLUCOSE 2021-08-22 00:27:00 Jennifer Ghosh spital POC GLUCOSE 2021-08-21 19:09:00 Jennifer Ghosh Ho spital POC GLUCOSE 2021-08-21 13:46:00 Alma Girard Ho spital [place] HC COMPLETE BLD COUNT 2021-08-21 10:56:00 Ting Pierson [facility]/AUTO DIFF [facility] BASIC METABOLIC PANEL 2021-08-21 10:56:00 Ting Dangelo [facility] HEPATIC FUNCTION PANEL 2021-08-21 10:56:00 [facility] MAGN[facility] LEVEL 2021-08-21 10:56:00 Alma Girard spital [place] PHOSPHORUS LEVEL 2021-08-21 10:56:00 Alma Girard ospital [facility] PROTHROMBIN TIME WITH INR 2021-08-21 10:56:00 [facility] ESTIM[facility]FR 2021-08-21 10:56:00 Alma Girard spital [place] POC GLUCOSE 2021-08-21 03:20:00 Alma Girard spital [place] POC GLUCOSE 2021-08-20 14:56:00 Jennifer Ghosh Ho spital HC COMPLETE BLD COUNT 2021-08-20 10:57:00 Ting Dangelo [facility]/AUTO DIFF [facility] BASIC METABOLIC PANEL 2021-08-20 10:57:00 [facility] Dangelo [facility] HEPATIC FUNCTION PANEL 2021-08-20 10:57:00 [facility] MAG[facility]UM LEVEL 2021-08-20 10:57:00 Alma Girard spital [place] PHOSPHORUS LEVEL 2021-08-20 10:57:00 Alma Girard ospimaeto Self PROTHROMBIN TIME WITH INR 2021-08-20 10:57:00 [facility] ESTIMATED GFR 2021-08-20 10:57:00 Alma Girard spital [place] POC GLUCOSE 2021-08-20 02:42:00 Alma Girard spital [place] POC GLUCOSE 2021-08-19 20:04:00 Alma Girard spital [place] HC COMPLETE BLD COUNT 2021-08-19 11:38:00 [facility] W/AUTO DIFF [place] BASIC METABOLIC PANEL 2021-08-19 11:38:00 [facility] HEPATIC FUNCTION PANEL 2021-08-19 11:38:00 [facility] [place] MAGNESIUM LEVEL 2021-08-19 11:38:00 Ting Alma Piersontal [place] PHOSPHORUS LEVEL 2021-08-19 11:38:00 Alma Girard ospimateo Self PROTHROMBIN TIME WITH INR 2021-08-19 11:38:00 [facility] ESTIMATED GFR 2021-08-19 11:38:00 Alma Girard spital [place] POC GLUCOSE 2021-08-19 03:14:00 Alma Girard spital [place] POC GLUCOSE 2021-08-18 23:30:00 Alma Girard spital [place] POC GLUCOSE 2021-08-18 15:37:00 Alma Girard spital [place] URINE CULTURE 2021-08-18 12:53:00 Alma Girard URINALYSIS SCREEN AND 2021-08-18 11:31:00 [facility] MICROSCOPY, WITH REFLEX TO [place] CULTURE LACTIC ACID LEVEL, SEPSIS 2021-08-18 10:21:00 Orlando Balderrama [facility] - NOW AND REPEAT 2X EVERY 3 HOURS HC COMPLETE BLD COUNT 2021-08-18 10:21:00 [facility] W/AUTO DIFF [facility] BASIC METABOLIC PANEL 2021-08-18 10:21:00 [facility] HEPATIC FUNCTION PANEL 2021-08-18 10:21:00 [facility] MAGNESIUM LEVEL 2021-08-18 10:21:00 [facility] PHOSPHORUS LEVEL 2021-08-18 10:21:00 [facility] ospital [facility] PROTHROMBIN TIME WITH INR 2021-08-18 10:21:00 [facility] ESTIMATED GFR 2021-08-18 10:21:00 [facility] LACTIC ACID LEVEL, SEPSIS 2021-08-18 07:56:00 [facility] - NOW AND REPEAT 2X EVERY 3 HOURS BLOOD CULTURE, AEROBIC & 2021-08-18 05:00:[address] [facility] ANAEROBIC [facility] ECG 12-LEAD 2021-08-18 04:24:[address] [facility] [address] ABDOMEN PELVIS WO 2021-08-18 04:19:03 [facility] CONTRAST CT HEAD WO CONTRAST 2021-08-18 04:18:21 [facility] LACTIC ACID LEVEL, SEPSIS 2021-08-18 03:37:00 [facility] - NOW AND REPEAT 2X EVERY 3 HOURS B NATRIURETIC PEPTIDE 2021-08-18 03:37:00 [facility] PROTHROMBIN TIME WITH INR 2021-08-18 03:20:00 [facility] AMMONIA LEVEL 2021-08-18 03:20:00 [facility] TROPONIN T 2021-08-18 03:20:00 [facility] XR CHEST 1 VW PORTABLE 2021-08-18 03:14:19 [facility] HC COMPLETE BLD COUNT 2021-08-18 03:03:00 [facility] W/AUTO DIFF COMPREHENSIVE METABOLIC 2021-08-18 03:03:[address] [facility] PANEL ESTIMATED GFR 2021-08-18 03:03:00 [facility] RESPIRATORY PATHOGEN PANEL 2021-08-18 03:03:00 [facility] WITH COVID-19 RT-PCR ECG ED PRELIMINARY 2021-08-18 02:54:33 [facility] INTERPRETATION COVID-19 QUALITATIVE 2021-08-11 05:31:00 [facility] RT-PCR [facility] COMPREHENSIVE METABOLIC 2021-08-11 05:30:00 [facility] PANEL [facility] HC COMPLETE BLD COUNT 2021-08-11 05:30:00 [facility] W/AUTO DIFF [facility] LACTIC ACID, I-STAT 2021-08-11 05:30:00 [facility] ESTIMATED GFR 2021-08-11 05:30:00 [facility] ECG 12-LEAD 2021-08-11 05:15:35 [facility] URINALYSIS 2021-08-11 05:00:00 [facility] XR CHEST 1 VW PORTABLE 2021-08-11 04:27:00 [facility] LACTIC ACID, I-STAT 2021-06-28 22:37:00 [facility] 2021-06-28 21:45:00 Romero Limon spital BLOOD CULTURE, AEROBIC & 2021-06-28 20:01:00 Romero Limon [facility] ANAEROBIC HC COMPLETE BLD COUNT 2021-06-28 20:01:00 [facility]FF PROTHROMBIN TIME WITH INR, 2021-06-28 20:01:00 Romero Limon [facility] I-STAT COMPREHENSIVE METABOLIC 2021-06-28 20:01:00 Romero Limon [facility] PANEL LACTIC ACID, I-STAT 2021-06-28 20:01:00 [facility] 2021-06-28 20:01:00 [facility] 2021-06-28 20:01:00 Romero Limon [facility] COVID-19 QUALITATIVE 2021-06-28 20:01:00 [facility] HC COMPLETE BLD COUNT 2021-06-21 11:20:00 Dinakar, [facility] W/AUTO DIFF [facility] BASIC METABOLIC PANEL 2021-06-21 11:20:00 Dinakar, [facility] HEPATIC FUNCTION PANEL 2021-06-21 11:20:00 Dinakar, [facility] MAGNESIUM LEVEL 2021-06-21 11:20:00 Dinakar, [facility] PROTHROMBIN TIME WITH INR 2021-06-21 11:20:00 Dinakar, [facility] PHOSPHORUS LEVEL 2021-06-21 11:20:00 Dinakar, [facility] ESTIMATED GFR 2021-06-21 11:20:00 Dinakar, [facility] PHOSPHATIDYLETHANOL, BLOOD 2021-06-21 11:20:00 [facility] URINE DRUGS OF ABUSE 2021-06-21 10:11:00 [facility] SCREEN URINALYSIS SCREEN AND 2021-06-21 10:10:00 [facility] MICROSCOPY, WITH REFLEX TO CULTURE URINE CULTURE 2021-06-21 10:10:00 [facility] COVID-19 SEROLOGY PATIENT 2021-06-20 17:52:00 Dinakar, [facility] SURVEILLANCE [facility] COVID-19 ANTI-SPIKE IGG 2021-06-20 17:52:00 Dinakar, [facility] ANTIBODY TITER Erika HC COMPLETE BLD COUNT 2021-06-20 11:03:00 Dinakar, [facility] W/AUTO DIFF Erika BASIC METABOLIC PANEL 2021-06-20 11:03:00 Dinakar, [facility] HEPATIC FUNCTION PANEL 2021-06-20 11:03:00 Dinakar, [facility] MAGNESIUM LEVEL 2021-06-20 11:03:00 Dinakar, Pierce [facility] Erika PROTHROMBIN TIME WITH INR 2021-06-20 11:03:00 Dinakar, [facility] PHOSPHORUS LEVEL 2021-06-20 11:03:00 Dinakar, [facility] Erika ESTIMATED GFR 2021-06-20 11:03:00 Dinrodrigo, [facility] Erika XR ABDOMEN 1 VW PORTABLE 2021-06-20 00:11:00 Mukesh [facility] AMMONIA LEVEL 2021 11:27:00 Jennifer Ghosh HC COMPLETE BLD COUNT 2021 11:24:00 Jennifer Ghosh [facility] W/AUTO DIFF PROTHROMBIN TIME WITH INR 2021 11:24:00 Jennifer Ghosh [facility] COMPREHENSIVE METABOLIC 2021 11:24:00 Jennifer Ghosh [facility] PANEL PHOSPHORUS LEVEL 2021 11:24:00 Jennifer Ghosh ospital MAGNESIUM LEVEL 2021 11:24:00 Jennifer Ghosh spital HEMOGLOBIN A1C 2021 11:24:00 Jennifer Ghosh spital THYROID STIMULATING 2021 11:24:00 [facility] 2021 11:24:00 Jennifer Ghosh spital VITAMIN D 25 HYDROXY LEVEL 2021 11:24:00 Jennifer Ghosh [facility] ESTIMATED GFR 2021 11:24:00 [facility] LACTIC ACID, I-STAT 2021 01:31:00 [facility] COVID-19 QUALITATIVE 2021 01:21:00 Diana Bangura [facility] RT-PCR CLOSTRIDIUM DIFFICILE 2021 00:30:00 Diana Bangura [facility] TOXIN ENTERIC BACTERIAL PANEL 2021 00:30:00 [facility] 2021 00:09:00 Diana Bangura [facility] COMPREHENSIVE METABOLIC 2021-06-18 22:51:00 [facility] PANEL AMYLASE LEVEL 2021-06-18 22:51:00 Diana Bangura [facility] ESTIMATED GFR 2021-06-18 22:51:00 Diana Bangura [facility] HC COMPLETE BLD COUNT 2021-06-18 21:51:00 Diana Bangura [facility] W/AUTO DIFF COMPREHENSIVE METABOLIC 2021-06-18 21:51:00 [facility] PANEL LACTIC ACID, I-STAT 2021-06-18 21:51:00 [facility] AMYLASE LEVEL 2021-06-18 21:51:00 Willem Diana [facility] ESTIMATED GFR 2021-06-18 21:51:00 [facility] AMMONIA LEVEL 2021-06-18 21:47:00 Diana Bangura [facility] HC COMPLETE BLD COUNT 2021-06-02 09:45:00 [facility] W/AUTO DIFF PROTHROMBIN TIME WITH INR 2021-06-02 09:45:00 [facility] BASIC METABOLIC PANEL 2021-06-02 09:45:00 [facility] HEPATIC FUNCTION PANEL 2021-06-02 09:45:00 [facility] PHOSPHORUS LEVEL 2021-06-02 09:45:00 [facility] MAGNESIUM LEVEL 2021-06-02 09:45:00 [facility] ospital ESTIMATED GFR 2021-06-02 09:45:00 [facility] ospital US ABDOMINAL LIMITED 2021-06-01 21:06:20 Joana Ling [facility] VENIPUNC NEED PHYS 2021-06-01 14:32:45 Linda Torres [facility] SKILL,DX OR RX HC COMPLETE BLD COUNT 2021-06-01 10:30:00 [facility] W/AUTO DIFF PROTHROMBIN TIME WITH INR 2021-06-01 10:30:00 [facility] BASIC METABOLIC PANEL 2021-06-01 10:30:00 [facility] HEPATIC FUNCTION PANEL 2021-06-01 10:30:00 [facility] PHOSPHORUS LEVEL 2021-06-01 10:30:00 [facility] MAGNESIUM LEVEL 2021-06-01 10:30:00 [facility] ospital HEMOGLOBIN A1C 2021-06-01 10:30:00 [facility] THYROID STIMULATING 2021-06-01 10:30:00 [facility] HORMONE T4 2021-06-01 10:30:00 [facility]ital VITAMIN D 25 HYDROXY LEVEL 2021-06-01 10:30:00 [facility] ZINC LEVEL, SERUM 2021-06-01 10:30:00 [facility] ALPHA FETOPROTEIN 2021-06-01 10:30:00 [facility] AMMONIA LEVEL 2021-06-01 10:30:00 [facility]ital ESTIMATED GFR 2021-06-01 10:30:00 [facility]ital PHOSPHATIDYLETHANOL, BLOOD 2021-06-01 10:30:00 [facility] URINE CULTURE 2021-06-01 02:48:00 [facility] ospital BLOOD CULTURE, AEROBIC & 2021-06-01 02:43:00 [facility] ANAEROBIC BLOOD CULTURE, AEROBIC & 2021-06-01 02:42:00 [facility] ANAEROBIC URINALYSIS SCREEN AND 2021-06-01 02:40:00 [facility] MICROSCOPY, WITH REFLEX TO CULTURE URINE DRUGS OF ABUSE 2021-06-01 02:40:00 [facility] SCREEN URIC ACID LEVEL 2021-06-01 02:38:00 [facility] ospital PROTHROMBIN TIME WITH INR 2021-06-01 02:38:00 [facility] PHOSPHORUS LEVEL 2021-06-01 02:38:00 [facility] PARTIAL THROMBOPLASTIN 2021-06-01 02:38:00 [facility] TIME (PTT) MAGNESIUM LEVEL 2021-06-01 02:38:00 [facility] ospital HEPATIC FUNCTION PANEL 2021-06-01 02:38:00 [facility] LDH 2021-06-01 02:38:00 [facility]ital LACTIC ACID LEVEL 2021-06-01 02:38:00 [facility] FIBRINOGEN 2021-06-01 02:38:00 [facility] HC COMPLETE BLD COUNT 2021-06-01 02:38:00 [facility] W/AUTO DIFF BASIC METABOLIC PANEL 2021-06-01 02:38:00 [facility] AMMONIA LEVEL 2021-06-01 02:38:00 [facility] ESTIMATED GFR 2021-06-01 02:38:00 [facility] COVID-19 SEROLOGY PATIENT 2021-06-01 02:38:00 [facility] SURVEILLANCE COVID-19 ANTI-SPIKE IGG 2021-06-01 02:38:00 Heriberto York [facility] ANTIBODY TITER ECG 12-LEAD 2021-06-01 01:06:10 Heriberto York ospital XR ABDOMEN 1 VW PORTABLE 2021-06-01 01:06:00 Heriberto [facility] XR CHEST 1 VW PORTABLE 2021-06-01 01:02:00 Heriberto York [facility] COVID-19 QUALITATIVE 2021-06-01 00:37:00 Heriberto York [facility] RT-PCR HC COMPLETE BLD COUNT 2021-05-27 10:09:00 [facility] W/AUTO DIFF [facility] BASIC METABOLIC PANEL 2021-05-27 10:09:00 [facility] HEPATIC FUNCTION PANEL 2021-05-27 10:09:00 [facility] MAGNESIUM LEVEL 2021-05-27 10:09:00 Alma Girard PHOSPHORUS LEVEL 2021-05-27 10:09:00 Alma Girard ossheldon Self PROTHROMBIN TIME WITH INR 2021-05-27 10:09:00 [facility] ESTIMATED GFR 2021-05-27 10:09:00 Alma Girard spimateo Self VENOUS BLOOD GAS 2021-05-26 23:37:00 Lucia Faustin HC COMPLETE BLD COUNT 2021-05-26 09:02:00 [facility] W/AUTO DIFF [facility] PROTHROMBIN TIME WITH INR 2021-05-26 09:02:00 [facility] COVID-19 SEROLOGY PATIENT 2021-05-26 09:02:00 Abe Partida [facility] SURVEILLANCE Tom SMEAR REVIEW 2021-05-26 09:02:00 Alma Girard PHOSPHATIDYLETHANOL, BLOOD 2021-05-26 09:02:00 Palak [facility] COVID-19 ANTI-SPIKE IGG 2021-05-26 09:02:00 Abe Partida [facility] ANTIBODY TITER Tom BASIC METABOLIC PANEL 2021-05-26 09:00:00 [facility] FUN[facility] PAN[facility] 2021-05-26 09:00:00 [facility] MAGNESIUM LEVEL 2021-05-26 09:00:00 Alma Girard PHOSPHORUS LEVEL 2021-05-26 09:00:00 Ting Alma Pierson ospimateo Self ALPHA FETOPROTEIN 2021-05-26 09:00:00 Mukesh [facility] ZINC LEVEL, SERUM 2021-05-26 09:00:00 Emma [facility] ESTIMATED GFR 2021-05-26 09:00:00 Alma Girard URINALYSIS SCREEN AND 2021-05-25 23:41:00 [facility]OS[facility], WITH REFLEX TO [place] CULTURE URINE DRUGS OF ABUSE 2021-05-25 23:41:00 [facility] [place] URINE CULTURE 2021-05-25 23:41:00 Alma Girard US HEPATIC 2021-05-25 20:43:26 Alma Girard US ABDOMINAL DOPPLER 2021-05-25 20:40:00 [facility] HC COMPLETE BLD COUNT 2021-05-25 18:10:00 [facility] W/AUTO DIFF [facility] SMEAR REVIEW 2021-05-25 18:10:00 Alma Girard VENIPUNC NEED PHYS 2021-05-25 15:59:39 Tristin Hunt [facility] SKILL,DX OR RX CBC WITH PLATELET AND 2021-05-25 13:57:00 [facility] DIFFERENTIAL [facility] COMPREHENSIVE METABOLIC 2021-05-25 13:57:00 [facility] PANEL [place] ESTIMATED GFR 2021-05-25 13:57:00 Alma Girard [facility] LACTIC ACID, I-STAT 2021-05-25 00:58:00 Romero Limon [facility] COVID-19 QUALITATIVE 2021-05-25 00:00:00 Romero Limon [facility] RT-PCR CT ABDOMEN PELVIS WO 2021-05-24 23:16:57 Romero Limon [facility] CONTRAST URINALYSIS 2021-05-24 22:19:00 [facility] COMPLETE BLD COUNT 2021-05-24 22:13:00 Romero Limon [facility] W/AUTO DIFF COMPREHENSIVE METABOLIC 2021-05-24 22:13:00 Romero Limon [facility] PANEL AMYLASE LEVEL 2021-05-24 22:13:00 Romero Limon LACTIC ACID, I-STAT 2021-05-24 22:13:00 Romero Limon [facility] ESTIMATED GFR 2021-05-24 22:13:00 Romero Limon shaen BLOOD CULTURE, AEROBIC & 2021-05-24 22:00:00 Romero Limon [facility] ANAEROBIC CBC HEMOGRAM 2020-11-23 05:55:00 Alma Girard PROTHROMBIN TIME WITH INR 2020-11-23 05:55:00 [facility] COMPREHENSIVE METABOLIC 2020-11-23 05:55:00 [facility] PANEL [facility] ESTIMATED GFR 2020-11-23 05:55:00 Ting Alma [facility]erson [place] COVID-19 QUALITATIVE 2020-11-23 01:57:00 Wild Kovacs [facility] RT-PCR Tomiwa LACTIC ACID, I-STAT 2020-11-23 01:40:00 Romero Limon [facility] CT HEAD WO CONTRAST 2020-11-22 23:20:00 Romero Limon [facility] HC COMPLETE BLD COUNT 2020-11-22 22:53:00 Romero Limon [facility] W/AUTO DIFF COMPREHENSIVE METABOLIC 2020-11-22 22:53:00 Romero Limon [facility] PANEL LACTIC ACID, I-STAT 2020-11-22 22:53:00 [facility] AMMONIA LEVEL 2020-11-22 22:53:00 Romero Limon spital VENOUS BLOOD GAS 2020-11-22 22:53:00 Romero Limon H ospital ESTIMATED GFR 2020-11-22 22:53:00 Romero Limon spital XR ABDOMEN ACUTE INC CHEST 2020-11-02 22:51:00 Mildred [facility] 1V ESTIMATED GFR 2020-11-02 21:55:00 [facility] HC COMPLETE BLD COUNT 2020-11-02 21:55:00 [facility] W/AUTO DIFF COMPREHENSIVE METABOLIC 2020-11-02 21:55:00 [facility] PANEL PROTHROMBIN TIME WITH INR 2020-11-02 21:55:00 [facility] COVID-19 QUALITATIVE 2020-11-02 21:05:00 [facility] RT-PCR NM BRAIN SPECT W I 123 2020-10-26 19:02:00 Alger [facility] DATSCAN HC COMPLETE BLD COUNT 2020-10-24 10:15:00 [facility] W/AUTO DIFF BASIC METABOLIC PANEL 2020-10-24 10:15:00 [facility] HEPATIC FUNCTION PANEL 2020-10-24 10:15:00 [facility] MAGNESIUM LEVEL 2020-10-24 10:15:00 [facility] ospital PHOSPHORUS LEVEL 2020-10-24 10:15:00 [facility] PROTHROMBIN TIME WITH INR 2020-10-24 10:15:00 [facility] HEMOGLOBIN A1C 2020-10-24 10:15:00 [facility] ospital THYROID STIMULATING 2020-10-24 10:15:00 [facility] HORMONE T4 2020-10-24 10:15:00 [facility] ospital VITAMIN D 25 HYDROXY LEVEL 2020-10-24 10:15:00 [facility] ZINC LEVEL, SERUM 2020-10-24 10:15:00 [facility] ALPHA FETOPROTEIN 2020-10-24 10:15:00 [facility] ESTIMATED GFR 2020-10-24 10:15:00 [facility] ospital URINE DRUGS OF ABUSE 2020-10-24 10:00:00 [facility] SCREEN LACTIC ACID LEVEL, SEPSIS 2020-10-24 06:20:00 [facility] - NOW AND REPEAT 2X EVERY 3 HOURS LACTIC ACID LEVEL, SEPSIS 2020-10-24 02:25:00 [facility] - NOW AND REPEAT 2X EVERY 3 HOURS XR CHEST 1 VW PORTABLE 2020-10-24 00:08:00 Rehrer, [facility] BLOOD CULTURE, AEROBIC & 2020-10-23 23:31:00 Rehrer, [facility] ANAEROBIC RESPIRATORY PATHOGEN PANEL 2020-10-23 23:31:00 Rehrer, [facility] WITH COVID-19 RT-PCR COMPREHENSIVE METABOLIC 2020-10-23 23:31:00 [facility] PANEL PHOSPHORUS LEVEL 2020-10-23 23:31:00 [facility] MAGNESIUM LEVEL 2020-10-23 23:31:00 [facility] LACTIC ACID LEVEL, SEPSIS 2020-10-23 23:31:00 [facility] - NOW AND REPEAT 2X EVERY 3 HOURS LIPASE LEVEL 2020-10-23 23:31:00 Rehrer, [facility] ESTIMATED GFR 2020-10-23 23:31:00 Rehrer, [facility] HC COMPLETE BLD COUNT 2020-10-23 23:20:00 Rehrer, [facility] W/AUTO DIFF PROTHROMBIN TIME WITH INR 2020-10-23 23:20:00 Rehrer, [facility] PARTIAL THROMBOPLASTIN 2020-10-23 23:20:00 Rehrer, [facility] TIME (PTT) AMMONIA LEVEL 2020-10-23 23:20:00 Rehrer, [facility] HC COMPLETE BLD COUNT 2020-10-10 00:05:00 [facility] W/AUTO DIFF COMPREHENSIVE METABOLIC 2020-10-10 00:05:00 [facility] PANEL LACTIC ACID, I-STAT 2020-10-10 00:05:00 [facility] AMMONIA LEVEL 2020-10-10 00:05:00 [facility] ESTIMATED GFR 2020-10-10 00:05:00 [facility] URINALYSIS 2020-10-09 23:32:00 [facility] ECG 12-LEAD 2020-10-09 23:18:11 [facility] HC COMPLETE BLD COUNT 2020-09-21 10:28:00 [facility] W/AUTO DIFF BASIC METABOLIC PANEL 2020-09-21 10:28:00 [facility] HEPATIC FUNCTION PANEL 2020-09-21 10:28:00 [facility] MAGNESIUM LEVEL 2020-09-21 10:28:00 [facility] o[facility]ital PHOSPHORUS LEVEL 2020-09-21 10:28:00 [facility] PROTHROMBIN TIME WITH INR 2020-09-21 10:28:00 [facility] MISCELLANEOUS REFERRAL 2020-09-21 10:28:00 Annette [facility] TEST VITAMIN B12 LEVEL 2020-09-21 10:28:00 [facility] FOLATE LEVEL 2020-09-21 10:28:00 [facility]ital ESTIMATED GFR 2020-09-21 10:28:00 [facility] COVID-19 QUALITATIVE 2020-09-20 20:51:00 Robby Perez [facility] RT-PCR Gabriel HC COMPLETE BLD COUNT 2020-09-20 12:08:00 [facility] W/AUTO DIFF BASIC METABOLIC PANEL 2020-09-20 12:08:00 [facility] HEPATIC FUNCTION PANEL 2020-09-20 12:08:00 [facility] MAGNESIUM LEVEL 2020-09-20 12:08:00 [facility] PHOSPHORUS LEVEL 2020-09-20 12:08:00 [facility] PROTHROMBIN TIME WITH INR 2020-09-20 12:08:00 [facility] HEMOGLOBIN A1C 2020-09-20 12:08:00 [facility] THYROID STIMULATING 2020-09-20 12:08:00 [facility] HORMONE T4 2020-09-20 12:08:00 [facility] VITAMIN D 25 HYDROXY LEVEL 2020-09-20 12:08:00 [facility] ZINC LEVEL, SERUM 2020-09-20 12:08:00 [facility] ALPHA FETOPROTEIN 2020-09-20 12:08:00 [facility] ESTIMATED GFR 2020-09-20 12:08:[facility] CT CERVICAL SPINE WO 2020-09-20 06:50:26 Bonny Rod [facility] CONTRAST Renee CT PELVIS WO CONTRAST 2020-09-20 06:50:16 Bonny Rod [facility] CT HEAD WO CONTRAST 2020-09-20 06:50:07 [facility] 2020-09-20 04:05:41 Bonny Rod [facility] 30-74 MINUTES Renee URINE CULTURE 2020-09-20 04:00:00 Bonny Rod Ho spital [place]e URINALYSIS SCREEN AND 2020-09-20 04:00:00 [facility] WITH [facility]FLEX TO Renee CULTURE URINE DRUGS OF ABUSE 2020-09-20 04:00:00 [facility] MAGNESIUM LEVEL 2020-09-20 04:00:00 Bonny Rod Ho spital [place]e TROPONIN 2020-09-20 04:00:00 Bonny Rod spital Renee XR KNEE 3 VW LEFT 2020-09-20 02:06:29 Marcel [facility] XR KNEE 3 VW RIGHT 2020-09-20 02:06:09 Marcel [facility] XR SHOULDER 2+ VW RIGHT 2020-09-20 02:05:46 Bonny Rod [facility] HC COMPLETE BLD COUNT 2020-09-20 02:05:00 Bonny Rod [facility] W/AUTO DIFF Renee PROTHROMBIN TIME WITH INR 2020-09-20 02:05:00 Bonny Rod [facility] PARTIAL THROMBOPLASTIN 2020-09-20 02:05:00 Bonny Rod [facility] TIME (PTT) Renee COMPREHENSIVE METABOLIC 2020-09-20 02:05:00 [facility]e TROPONIN 2020-09-20 02:05:00 Bonny Rod [facility]ital Renee B NATRIURETIC PEPTIDE 2020-09-20 02:05:00 Bonny Rod [facility] Renee AMMONIA LEVEL 2020-09-20 02:05:00 Bonny Rod [facility] Renee ALCOHOL LEVEL, BLOOD 2020-09-20 02:05:00 [facility] ESTIM[facility] GFR 2020-09-20 02:05:00 Bonny Rod [facility] Renee Plan of Care Planned Activity Planned Date Details Comments Source Future Scheduled 2021-09-12 COL[facility]CRE[facility] Test 12:13:11 [code = COLONOSCOPY SCREENING] Future Scheduled 2021-09-12 SHINGLES VACCINES [facility] Test 12:13:11 (#1) [code = SHINGLES VACCINES (#1)] Future Scheduled 2021-09-12 BREAST CANCER [facility] Test 12:13:11 SCREENING [code = BREAST CANCER SCREENING] Future Scheduled 2021-09-12 COVID-19 VACCINE (2 - [facility] 12:13:11 Booster for Yanira series) [code = COVID-19 VACCINE (2 - Booster for Yanira series)] Future Scheduled 2021-09-12 INFLUENZA VACCINE [facility] Test 12:13:11 [code = INFLUENZA VACCINE] Future Scheduled 2021-09-12 Screening for [facility] Test 12:13:11 malignant neoplasm of cervix (procedure) [code = 131213802] Future Scheduled 2021-08-[address] [facility] - Test 00:00:00 (12+) [code = Medical Center DEPRESSION SCREENING (12+)] Future Scheduled 2021-04-[address] [facility] - Test 00:00:00 (#1) [code = Medical Center INFLUENZA VACCINE (#1)] Future Scheduled 2016-01-[address] [facility] - Test 00:00:00 WELLNESS (YEAR 2 or Medical Center FIRST YEAR if no IPPE) [code = MEDICARE ANNUAL WELLNESS (YEAR 2 or FIRST YEAR if no IPPE)] Future Scheduled 2011 SHINGLES VACCINES ([address] [facility] - Test 00:00:00 of 2) [code = Medical Center SHINGLES VACCINES (1 of 2)] Future Scheduled [address] [facility] Test 00:[facility]:00 (procedure) [code = Medical Center [id number]] Future Scheduled [address] [facility] Test 00:00:00 malignant neoplasm of [facility] cervix (procedure) [code = 338131062] Future Scheduled 1980 DTAP/TDAP/TD VACCINES [facility] Test 00:[facility]:00 (1 - Tdap) [code = Medical C enter DTAP/TDAP/TD VACCINES (1 - Tdap)] Future Scheduled 1973 COVID-19 VACCINE (1) [facility] - Test 00:00:00 [code = COVID-[address] VACCINE (1)] Future Scheduled [address] [facility] - Test 00:00:00 malignant neoplasm of [facility] breast (procedure) [code = 911798340] Future Scheduled [address] [facility] [facility] - Test 00:00:00 malignant neoplasm of [facility] colon (procedure) [code = 966893049] Encounters Start End Encounter Admission Attending Care Care Encounter Source Date/Time Date/Time Type Type Clinicians Facility Department ID 2021-09-06 Outpatient D[facility]az, [facility] [id number] [facility] 2021-09-06 Outpatient Díaz, [facility] Fernando [id number] [facility] 2021-09-06 Outpatient Díaz, [facility] 12[facility] Fernando [id number] [facility] 2021-09-06 Outpatient Díaz, [facility] 12[facility]:14 Fernando [id number] [facility] 2021-09-06 Outpatient Díaz, [facility] 12[facility]03:44 Fernando [id number] [facility] 2021-09-06 Outpatient Díaz, [facility] 11:42:32 Fernando [id number] [facility] 2021-09-06 Outpatient Díaz, [facility] [id number] 11[facility]33:04 [facility] [address] [facility] 2021-11-30 2021-11-30 ambulatory [facility] [id number] [facility] 00:00:00 00:00:00 [facility] 2021-11-16 2021-11-16 Office BEN Thompson 1.2.752.707 [id number] [facility] 13:30:00 14:32:33 Visit Luisana PORRAS 350.1.13.10 i ty [facility] 4.2.7.2.686 Kalyani skelton PROFESSIO [phone] Mn dical [address] 2021-10-27 2021-11-04 Inpatient [facility] [id number] [facility] 00:00:00 00:00:00 Ava PIERSON i BAYLEE st 2021-10-16 2021-10-16 ambulatory [facility] [id number] [facility] 2021-10-13 2021-10-13 ambulatory [facility] [id number] [facility] 2021-09-25 2021-09-25 ambulatory [facility] [id number] [facility] 2021-09-01 2021-09-16 Inpatient ER RAFAEL, [facility] [id number] [facility] 22:15:00 12:13:00 NEJMUDIN 2021-09-04 2021-09-04 ambulatory [facility]MLC [facility] [id number] [facility] 2021-09-01 2021-09-01 Telephone Cristofer, 1.2.840.1 [id number] 589 [id number] Methodi 00:00:00 00:00:[address] Matthew 3.430.2.7 Hospit a .3.616774 l .8 2021-09-01 2021-09-[address] [facility] [id number] [facility] 00:[facility] 00:00:00 [facility] 2021-08-30 2021-08-31 [facility] [id number] [facility] 00:00:00 00:00:[address] MOISES [address] 2021-08-30 2021-08-30 Travel 1.2.840.1 1.2.859.980 3277 [id number] Methodi 00:00:00 00:00:[address] 3.430.2.7 0.2.7.3.698 Ho spita .3.125795 084.8 l .8 2021-08-29 2021-08-29 Travel 1.2.840.1 1.2.760.295 2131 [id number] Methodi 00:00:00 00:00:[address] 3.430.2.7 0.2.7.3.698 Ho spita .3.643234 084.8 l .8 2021-08-17 2021-08-25 [facility] 1.2.840.1 [id number] [id number] Methodi 19:50:00 18:28:00 Encounter Baylee Girard 88760.1.[address] [facility] Hos lis .3.641875 l .8 2021-08-25 2021-08-25 Travel 1.2.840.1 1.2.609.554 6052 [id number] Methodi 00:00:00 00:00:[address] 3.430.2.7 0.2.7.3.698 Ho spita .3.340218 084.8 l .8 2021-08-24 2021-08-24 [facility] 1.2.840.1 [id number] 46 Methodi 09:00:00 10:25:[address] 3.430.2.7 Hospit a .3.402124 l .8 2021-08-24 2021-08-24 Documentat [facility], 1.2.840.1 [id number] Methodi 00:00:00 00:00:00 [place] [address].1.[address] Matthew 3.430.2.7 Hospit a .3.516809 l .8 2021-08-23 2021-08-23 Documentat [facility], 1.2.840.1 [id number] 21 [id number] Methodi 00:00:00 00:00:00 lupillo Ragsdale 94791.1.[address] Matthew 3.430.2.7 Hospit a .3.871430 l .8 2021-08-21 2021-08-21 Social Jaimes, 1.2.840.1 [id number] 081 [id number] Methodi 12:37:39 13:37:39 Work Scott 51818.1.[address] 3.430.2.7 Hospit a .3.624961 l .8 2021-08-21 2021-08-21 Documentat [facility], 1.2.840.1 [id number] Methodi 00:00:00 00:00:00 lupillo R[place] [address]49[address] Matthew 3.430.2.7 Hospit a .3.107754 l .8 2021-08-21 2021-08-21 Telephone Pops, 1.2.840.1 [id number] 2099 [id number] Methodi 00:00:00 00:00:[address] 3.430.2.7 Hospit a .3.918004 l .8 2021-08-18 2021-08-18 Travel 1.2.840.1 1.2.571.169 2185 179306 Methodi 00:00:00 00:00:[address] 3.430.2.7 0.2.7.3.698 Ho spita .3.996828 084.8 l .8 2021-08-10 2021-08-11 Emergency Adali, 1.2.840.1 [id number] 2 [id number] Methodi 20:25:00 01:30:[address] Rylee 3.430.2.7 Ho spita .3.863654 l .8 2021-08-10 2021-08-10 Travel 1.2.840.1 1.2.662.227 6045 132875 Methodi 00:00:00 00:00:[address] 3.430.2.7 0.2.7.3.698 Ho spita .3.825413 084.8 l .8 2021-07-28 2021-07-28 ambulatory [facility]LMLC [facility] [id number] [facility] 00[facility] [facility] 2021-07-25 2021-07-25 Telephone Stephanie, 1.2.840.1 [id number] 006 [id number] Methodi 00:00:00 00:00:[address] 3.430.2.7 Hospit a .3.024929 l .8 2021-07-24 2021-07-24 Telephone Pops, 1.2.840.1 [id number] 2099 [id number] Methodi 00:00:00 00:00:[address] 3.430.2.7 Hospit a .3.159520 l .8 2021-07-12 2021-07-12 ambulatory [facility]LMLC [facility] [id number] [facility] 00[facility]:00 [facility] 2021-06-29 2021-06-29 Travel 1.2.840.1 1.2.884.432 1364 [id number] Methodi 00:00:00 00:00:[address] 3.430.2.7 0.2.7.3.698 Ho spita .3.141286 084.8 l .8 2021-06-28 2021-06-28 Emergency Nunafisazen, 1.2.840.1 [id number] 2099 [id number] Methodi 13:22:00 16:56:00 Romero Sheets 34491.1.[address] 3.430.2.7 Hospit a .3.646211 l .8 2021-06-22 2021-06-22 Behavioral John, 1.2.840.1 [id number] 234 [id number] Methodi 00:00:00 00:00:00 Health Kaleb 64589.1.[address] Johnny 3.430.2.7 Hospit a .3.175066 l .8 2021-06-18 2021-06-21 [facility] Diana Bangura 1.2.840.1 10 [id number] Methodi 15:30:00 14:22:00 Encounter Jennifer Ghosh 84246.1.[address] [facility] Pierce Erika 3.430.2.7 Hospita .3.882330 l .8 2021-06-18 2021-06-18 Travel 1.2.840.1 1.2.662.887 7266 [id number] Methodi 00:00:00 00:00:[address] 3.430.2.7 0.2.7.3.698 Ho spita .3.335764 084.8 l .8 2021-06-16 2021-06-16 Orders Teri, 1.2.840.5 [id number] Methodi 00:00:00 00:00:00 Only Eusebia Maya 00344.1.[address] 3.430.2.7 Hospit a .3.225514 l .8 2021-06-08 2021-06-08 Clinical 1.2.840.1 [id number] 47277 Methodi 12:04:06 13:04:[address] 3.430.2.7 Hospit a .3.985841 l .8 2021-06-05 2021-06-05 Telephone John, 1.2.840.1 [id number] 2100 [id number] Methodi 00:00:00 00:00:[address] Jonhny 3.430.2.7 Hospit a .3.142911 l .8 2021-05-31 2021-06-02 [facility] YORK, 1.2.840.1 [id number] 717 [id number] [place] 00:00:00 00:00:00 Encounter HERIBERTO 08612.1.1 [address] .3.534079 .8 2021-05-31 2021-05-31 Travel 1.2.840.1 1.2.115.941 2784 708347 Methodi 00:00:00 00:00:[address] 3.430.2.7 0.2.7.3.698 Ho spita .3.234072 084.8 l .8 2021-05-24 2021-05-27 [facility] ErlindaRomero fitch 1.2.840.1 [id number] 2099 [id number] Methodi 16:35:00 16:49:00 Encounter Baylee Girard 67561.1.[address] Pierce Marshall 3.430.2.7 Hospita .3.916265 l .8 2021-05-24 2021-05-24 Travel 1.2.840.1 1.2.090.189 5768 791545 Methodi 00:00:00 00:00:[address] 3.430.2.7 0.2.7.3.698 Ho spita .3.886305 084.8 l .8 2021-05-23 2021-05-23 [facility] [id number] 2021-05-19 2021-05-19 Outpatient [facility] [id number] [facility] 2021-05-01 2021-05-01 Outpatient [facility] [id number] [facility] 2021-04-26 2021-04-26 Outpatient [facility] [id number] [facility] 2021-04-26 2021-04-26 Outpatient ST[facility] [id number] [facility] 2021-04-26 2021-04-26 Outpatient STLC [facility] [id number] [facility] 2021-01-13 2021-01-13 Outpatient [facility] [id number] [facility] 2020-12-13 2020-12-13 Outpatient [facility] [id number] [facility] 2020-11-28 2020-11-28 Patient Udoet, 1.2.840.1 [id number] 75719 Methodi 00:00:00 00:00:00 Outreach Bia 85792.1.[address] 3.430.2.7 Hospit a .3.431189 l .8 2020-11-25 2020-11-25 Patient Cynthiat, 1.2.840.1 [id number] 74270 Methodi 00:00:00 00:00:00 Outreach Bia 58954.1.[address] 3.430.2.7 Hospit a .3.270227 l .8 2020-11-24 2020-11-24 Patient Cynthiat, 1.2.840.1 [id number] 55253 Methodi 00:00:00 00:00:00 Outreach Bia 35276.1.[address] 3.430.2.7 Hospit a .3.146243 l .8 2020-11-22 2020-11-23 Emergency Wild Kovacs 1.2.840. 1 [id number] Methodi 17:29:00 16:26:00 Baylee [address]ard 16013.1.[address] 3.430.2.7 Hospit a .3.891333 l .8 2020-11-22 2020-11-22 Travel 1.2.840.1 1.2.111.319 3695 842372 Methodi 00:00:00 00:00:[address] 3.430.2.7 0.2.7.3.698 Ho spita .3.771947 084.8 l .8 2020-11-17 2020-11-17 Outpatient [facility] [id number] [facility] 2020-11-02 2020[id number] Methodi 16:45:00 23:59:00 Encounter Calos Garcia 13764.1.[address] 3.430.2.7 Hospit a .3.970275 l .8 2020-11-02 2020-11-02 Lab Jose 1.2.840.1 [id number] 3236 Methodi 16:00:31 16:05:31 Calos Feng 85911.1.[address] 3.430.2.7 Hospit a .3.389731 l .8 2020-11-02 2020-11-02 Travel 1.2.840.1 1.2.635.343 3502 160945 Methodi 00:00:00 00:00:[address] 3.430.2.7 0.2.7.3.698 Ho spita .3.134578 084.8 l .8 2020-10-26 2020-10-26 [facility] 1.2.840.1 [id number] 440 [id number] Methodi 12:51:36 23:59:00 Encounter Cliff Marion 65624.1.[address] 3.430.2.7 Hospit a .3.620004 l .8 2020-10-26 2020-10-26 [place] 05838.2.840.1 [id number] [id number] Methodi 08:10:06 12:50:00 Encounter Cliff Marion 45408.1.[address] 3.430.2.7 Hospit a .3.612831 l .8 2020-10-26 2020-10-26 Travel 1.2.840.1 1.2.158.788 5515 [id number] Methodi 00:00:00 00:00:[address] 3.430.2.7 0.2.7.3.698 Ho spita .3.240929 084.8 l .8 2020-10-23 2020-10-24 [facility] 1.2.840.1 104 [id number] [id number] Methodi 17:57:00 14:46:00 Encounter Heriberto [place] 00247.1.[address] Tingolaf RizvisGloriaBaylee 3.430.2.7 [facility] .3.854695 l .8 2020-10-13 2020-10-13 Travel 1.2.840.1 1.2.999.850 0141 776756 Methodi 00:00:00 00:00:[address] 3.430.2.7 0.2.7.3.698 Ho spita .3.227741 084.8 l .8 2020-10-12 2020-10-12 Transcribe [facility] 1.2.840.1 [id number] 2 [id number] Methodi 00:00:00 00:00:00 Orders Cliff ChuLaurel 52622.1.[address] 3.430.2.7 Hospit a .3.149565 l .8 2020-10-11 2020-10-11 Outpatient [facility] [id number] [facility] 2020-10-09 2020-10-09 Emergency Azevedo, 1.2.840.1 [id number] 2100 [id number] Methodi 16:28:00 19:29:[address] Gus 3.430.2.7 Hospit a .3.947563 l .8 2020-10-03 2020-10-03 Outpatient [facility] [id number] [facility] 2020-09-19 2020-09-21 [facility] 1.2.840.1 [id number] Methodi 16:55:00 14:27:00 Encounter Heriberto [place] 19078.1.[address] Jennifer Ghosh 3.430.2.7 Hos lis .3.169416 l .8 2020-09-15 2020-09-15 Transcribe Jose, 1.2.840.1 [id number] Methodi 00:00:00 00:00:00 Sheryl Feng 55829.1.[address] 3.430.2.7 Hospit a .3.445218 l .8 2020-09-14 2020-09-14 Outpatient [facility] [id number] [facility] 2020-07-27 2020-07-27 Outpatient [facility] [id number] [facility] 2020-06-28 2020-06-28 Outpatient [facility] [id number] [facility] 2020-06-20 2020-06-20 Outpatient [facility] [id number] [facility] 2020-05-20 2020-05-20 Outpatient [facility] [id number] [facility] 00:[facility]:00 [facility] l Outpati ent Clinics 2020-04-13 2020-04-13 [facility] [id number] 16:02:00 16:02:00 t [employer] [facility] Medicine l Medicine Outpati ent Clinics 2020-04-13 2020-04-13 [facility] [id number] 09:33:00 09:33:00 t [employer] [facility] Medicine l Medicine Outpati ent Clinics 2020-04-05 2020-04-05 [facility] [id number] 09:10:00 09:10:00 t [employer] [facility] l Medicine Outpati ent Clinics 2020-04-04 2020-04-04 [facility] [id number] 10:58:00 10:58:00 t [employer] [facility] Medicine Outpati ent Clinics 2020-04-04 2020-04-04 [facility] [id number] 10:00:00 10:00:00 t [employer] [facility] Medicine Outpati ent Clinics 2020-03-16 2020-03-16 [facility] [id number] 11:12:00 11:12:00 t [employer] [facility] Medicine l Medicine Outpati ent Clinics 2020-03-10 2020-03-10 [facility] [id number] 13:18:00 13:18:00 t [employer] [facility] Medicine Outpati ent Clinics 2020-03-07 2020-03-07 [facility] [id number] 16:07:00 16:07:00 t [employer] [facility] l Medicine Outpati ent Clinics 2020-03-04 2020-03-04 [facility] [id number] 11:00:00 11:00:00 t [employer] [facility] l Medicine Outpati ent Clinics 2020-03-04 2020-03-04 [facility] [id number] 11:00:00 11:00:00 t [place] [employer] [facility] Medicine Outpati ent Clinics 2019-12-29 2019-12-29 [facility] [id number] 07:03:00 07:03:00 t [place] [employer] [facility] Medicine Outpati ent Clinics 2019-12-22 2019-12-22 Office HERMELINDA Choe 1.2.840.114 [id number] 66 14:08:03 14:56:41 Visit [place] 15503.1.13.10 Surgical 4.2.7.2.686 [facility] [phone] [address] 2019-07-20 2019-07-20 [facility] [id number] 14:02:00 14:02:00 t [place] [employer] [facility] Medicine Outpati ent Clinics 2019-07-16 2019-07-16 [facility] [id number] 13:15:00 13:15:00 t [place] [employer] [facility] Medicine l Medicine Outpati ent Clinics 2019-04-15 2019-04-15 [facility] [id number] 14:19:00 14:19:00 t [place] [employer] [facility] Medicine Medicine Outpati ent Clinics 2019-04-09 2019-04-09 [facility] [id number] 14:00:00 14:00:00 t [place] [employer] s - Drive [facility] Medicine Medicine Outpati ent Clinics 2018-09-09 2018-09-09 [facility] [id number] 14:45:00 14:45:00 t [place] [employer] s - Drive [facility] Medicine Medicine Outpati ent Clinics 2018-04-15 2018-04-15 [facility] [id number] 12:02:00 12:02:00 t [place] [employer] s - Drive [facility] Medicine l Medicine Outpati ent Clinics 2018-02-19 2018-02-19 [facility] [id number] 15:08:00 15:08:00 [facility] 2018-01-24 2018-01-24 Outpatient Irma Solist [id number] 11:15:00 11:15:00 [facility] ent Clinics Results Test Description Test Time Test Comments Results Result Comments Source SARS-CoV-2 (COVID-19) RNA [Presence] in Respiratory sp ecimen by 2021-10-28 04:55:57 GUSTAVO with probe detection Test Item Value Reference Range Interpretation Comme nts SARS-CoV-2 (COVID-19) RNA [Presence] in Respiratory specimen by Not detected GUSTAVO with probe detection (test code = 36794-5) 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 (test code = Un known 32156-1) Whether the patient has symptoms related to condition of interest U nknown (test code = 32572-7) Whether the patient was hospitalized for condition of interest Unkn own (test code = 19314-3) Whether the patient was admitted to intensive care unit (ICU) for U nknown condition of interest (test code = 51401-7) Whether patient resides in a congregate care setting (test code = U nknown 43889-8) status (test code = 87476-5) Unknown Date and time of symptom onset (test code = 18273-7) Unknown SARS-CoV-2 (COVID-19) RNA [Presence] in Respiratory specimen by GUSTAVO with probe [id number] 01:48:29 Test Item Value Reference Range Interpretation Comments SARS-CoV-2 (COVID-19) RNA Not detected [Presence] in Respiratory specimen by GUSTAVO with probe detection (test code = 05566-7) 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 employed in a Unknown healthcare setting (test code = 76499-2) Whether the patient has symptoms Unknown related to condition of interest (test code = 90465-7) Whether the patient was Unknown hospitalized for condition of interest (test code = 40769-9) Whether the patient was admitted Unknown to intensive care unit (ICU) for condition of interest (test code = 71812-7) Whether patient resides in a Unknown congregate care setting (test code = 89735-2) status (test code = Unknown 71849-6) Date and time of symptom onset Unknown (test code = 11483-7) CT, [id number] 08:50:00Unlisted Reason for Exam - Click Yes and Enter Reason Below->YesUnlisted Reason for Exam->diarrhea. abdominal pain. C dif colitis.Is this for enterography?->NoWill this procedure require oral c ontrast?->NoLALITA [facility]ORY : 1960 Sex: FFINAL REPORT CT abdomen and pelvis without contrast History: Diarrhea and abdominal pain Comparison: 09/04/2021 Technique: serial axial imaging was performed without intravenous contrast as per departmental protocol. Multiplanar images are reconstructed and reviewed when indicated. This CT examination is performed using one or more of the following dose reduction techniques: Automated exposure control, adjustment of the mA and /or kV according to patient size, and/or use of iterative reconstruction technique. Findings:Evaluation limited by lack of intravenous contrast. Small right pleural effusion. Liver appears cirrhotic. A TIPS shunt is noted, the patency of which isnot assessed on this noncontrast exam. Mild splenomegaly. Absent gallbladder. Punctate bilateral nonobstructing nephrolithiasis. No evidence of hydronephrosis. A cyst within the left kidney measures 4.7 cm in size and requires no further imaging follow-up. Persistent diffuse thickening of the colon, with probable slight improvement from prior exam. No pneumatosis or free air is seen. No fluid collection is identified. No findings to indicate acute appendicitis. Small volume ascites. Previous ventral hernia repair, which appears intact. No aggressive osseous lesion. Impression: 1. Pancolitis,with probable slight improvement from prior exam.2. Cirrhosis, small volume ascites, mild splenomegaly.3. Small right pleural effusion. Signed: Quentin Sims MDReport Verified Date/Time: 09/15/2021 08:50:57 BASIC METABOLIC [id number] 07:34:36 Test Item Value Reference Range Interpretation Comments SODIUM (BEAKER) 138 meq/L 136-145 (test code = 381) POTASSIUM (BEAKER) 3.7 meq/L 3.5-5.1 Specimen slightly (test code = 379) hemolyzed CHLORIDE (BEAKER) 105 meq/L 98-107 (test code = 382) CO2 (BEAKER) (test 26 meq/L 22-29 code = 355) BLOOD UREA NITROGEN 10 mg/dL 7-21 (BEAKER) (test code = 354) CREATININE (BEAKER) 0.72 mg/dL 0.57-1.25 Specimen slightly (test code = 358) hemolyzed GLUCOSE RANDOM 60 mg/dL 70-105 L (BEAKER) (test code = 652) CALCIUM (BEAKER) 7.5 mg/dL 8.4-10.2 L (test code = 697) EGFR (BEAKER) (test 83 mL/min/1.73 ESTIMA BARRON GFR IS code = 1092) sq m NOT ACCURATE CREATININE CLEARANCE IN PREDICTING GLOMERULAR FILTRATION RATE . ESTIMATED GFR I S NOT APPLICABLE FOR DIALYSIS PATIEN TS. Orange Picking Supervisor ID - EOSpecimen moderately ictericHEPATIC FUNCTION [id number] 07:29:08 Test Item Value Reference Range Interpretation Comments TOTAL PROTEIN (BEAKER) 5.2 gm/dL 6.0-8.3 L Speci men slightly (test code = 770) hemolyzed ALBUMIN (BEAKER) (test 2.1 g/dL 3.5-5.0 L Speci men slightly code = 1145) hemolyzed BILIRUBIN TOTAL 3.9 mg/dL 0.2-1.2 H Specimen sli ghtly (BEAKER) (test code = hemoly zed 377) BILIRUBIN DIRECT 1.5 mg/dL 0.1-0.5 H Specimen sl ightly (BEAKER) (test code = hemoly zed 706) ALKALINE PHOSPHATASE 95 U/L 40-150 (BEAKER) (test code = 346) AST (SGOT) (BEAKER) 37 U/L 5-34 H Specimen slightly (test code = 353) hemolyzed ALT (SGPT) (BEAKER) 18 U/L 6-55 Specimen slightly (test code = 347) hemolyzed [employer] Supervisor ID - EOSpecimen moderately ictericPROTHROMBIN [id number] 06:46:58 Test Item Value Reference Range Interpretation Comments PROTIME (BEAKER) 22.1 seconds 11.9-14.2 H (test code = 759) INR (BEAKER) (test 1.96 See_Comment [Automat ed message] code = 370) The system [employer] generated this result transmitted ref erence range: <=5.90. The reference range was not used to int erpret this result as normal/abnormal . RECOMMENDED COUMADIN/WARFARIN INR THERAPY RANGESSTANDARD DOSE: 2.0 - 3.0 Includes: PROPHYLAXIS forvenous thrombosis, systemic embolization; TREATMENT for venous thrombosis and/or pulmonary embolus.HIGH RISK: Target INR is 2.5-3.5 for patients with mechanical heart valves.CBC W/PLT COUNT & AUTO DIFFERENTIAL 2021-09-15 06:38:55 Test Item Value Reference Range Interpretation Comments WHITE BLOOD CELL COUNT (BEAKER) 7.9 K/ L 3.5-10.5 (test code = 775) RED BLOOD CELL COUNT (BEAKER) 2.53 M/ L 3.93-5.22 L (test code = 761) HEMOGLOBIN (BEAKER) (test code = 8.1 GM/DL 11.2-15.7 L 410) HEMATOCRIT (BEAKER) (test code = 26.3 % 34.1-44.9 L 411) MEAN CORPUSCULAR VOLUME (BEAKER) 104.0 fL 79.4-94.8 H (test code = 753) MEAN CORPUSCULAR HEMOGLOBIN 32.0 pg 25.6-32.2 (BEAKER) (test code = 751) MEAN CORPUSCULAR HEMOGLOBIN CONC 30.8 GM/DL 32.2-35.5 L (BEAKER) (test code = 752) RED CELL DISTRIBUTION WIDTH 19.5 % 11.7-14.4 H (BEAKER) (test code = 412) PLATELET COUNT (BEAKER) (test code 96 K/CU MM 150-450 L = 756) MEAN PLATELET VOLUME (BEAKER) 10.6 fL 9.4-12.3 (test code = 754) NUCLEATED RED BLOOD CELLS (BEAKER) 0 /100 WBC 0-0 (test code = 413) NEUTROPHILS RELATIVE PERCENT 72 % (BEAKER) (test code = 429) LYMPHOCYTES RELATIVE PERCENT 13 % (BEAKER) (test code = 430) MONOCYTES RELATIVE PERCENT 11 % (BEAKER) (test code = 431) EOSINOPHILS RELATIVE PERCENT 4 % (BEAKER) (test code = 432) BASOPHILS RELATIVE PERCENT 1 % (BEAKER) (test code = 437) NEUTROPHILS ABSOLUTE COUNT 5.65 K/ L 1.56-6.13 (BEAKER) (test code = 670) LYMPHOCYTES ABSOLUTE COUNT 0.99 K/ L 1.18-3.74 L (BEAKER) (test code = 414) MONOCYTES ABSOLUTE COUNT (BEAKER) 0.83 K/ L 0.24-0.36 H (test code = 415) EOSINOPHILS ABSOLUTE COUNT 0.33 K/ L 0.04-0.36 (BEAKER) (test code = 416) BASOPHILS ABSOLUTE COUNT (BEAKER) 0.04 K/ L 0.01-0.08 (test code = 417) IMMATURE GRANULOCYTES-RELATIVE 1 % 0-1 PERCENT (BEAKER) (test code = 2801) CBC W/PLT COUNT & AUTO [id number] 10:18:58 Test Item Value Reference Range Interpretation Comments WHITE BLOOD CELL COUNT (BEAKER) 8.5 K/ L 3.5-10.5 (test code = 775) RED BLOOD CELL COUNT (BEAKER) 2.59 M/ L 3.93-5.22 L (test code = 761) HEMOGLOBIN (BEAKER) (test code = 8.4 GM/DL 11.2-15.7 L 410) HEMATOCRIT (BEAKER) (test code = 27.0 % 34.1-44.9 L 411) MEAN CORPUSCULAR VOLUME (BEAKER) 104.2 fL 79.4-94.8 H (test code = 753) MEAN CORPUSCULAR HEMOGLOBIN 32.4 pg 25.6-32.2 H (BEAKER) (test code = 751) MEAN CORPUSCULAR HEMOGLOBIN CONC 31.1 GM/DL 32.2-35.5 L (BEAKER) (test code = 752) RED CELL DISTRIBUTION WIDTH 19.3 % 11.7-14.4 H (BEAKER) (test code = 412) PLATELET COUNT (BEAKER) (test code 65 K/CU MM 150-450 L = 756) MEAN PLATELET VOLUME (BEAKER) 12.8 fL 9.4-12.3 H (test code = 754) NUCLEATED RED BLOOD CELLS (BEAKER) 0 /100 WBC 0-0 (test code = 413) NEUTROPHILS RELATIVE PERCENT 76 % (BEAKER) (test code = 429) LYMPHOCYTES RELATIVE PERCENT 12 % (BEAKER) (test code = 430) MONOCYTES RELATIVE PERCENT 8 % (BEAKER) (test code = 431) EOSINOPHILS RELATIVE PERCENT 4 % (BEAKER) (test code = 432) BASOPHILS RELATIVE PERCENT 1 % (BEAKER) (test code = 437) NEUTROPHILS ABSOLUTE COUNT 6.43 K/ L 1.56-6.13 H (BEAKER) (test code = 670) LYMPHOCYTES ABSOLUTE COUNT 0.97 K/ L 1.18-3.74 L (BEAKER) (test code = 414) MONOCYTES ABSOLUTE COUNT (BEAKER) 0.64 K/ L 0.24-0.36 H (test code = 415) EOSINOPHILS ABSOLUTE COUNT 0.33 K/ L 0.04-0.36 (BEAKER) (test code = 416) BASOPHILS ABSOLUTE COUNT (BEAKER) 0.04 K/ L 0.01-0.08 (test code = 417) IMMATURE GRANULOCYTES-RELATIVE 1 % 0-1 PERCENT (BEAKER) (test code = 2801) BASIC METABOLIC [id number] 08:06:00 Test Item Value Reference Range Interpretation Comments SODIUM (BEAKER) 137 meq/L 136-145 (test code = 381) POTASSIUM (BEAKER) 3.6 meq/L 3.5-5.1 (test code = 379) CHLORIDE (BEAKER) 106 meq/L 98-107 (test code = 382) CO2 (BEAKER) (test 24 meq/L 22-29 code = 355) BLOOD UREA NITROGEN 10 mg/dL 7-21 (BEAKER) (test code = 354) CREATININE (BEAKER) 0.72 mg/dL 0.57-1.25 (test code = 358) GLUCOSE RANDOM 70 mg/dL 70-105 (BEAKER) (test code = 652) CALCIUM (BEAKER) 8.0 mg/dL 8.4-10.2 L (test code = 697) EGFR (BEAKER) (test 83 mL/min/1.73 ESTIMA BARRON GFR IS code = 1092) sq m NOT ACCURATE CREATININE CLEARANCE IN PREDICTING GLOMERULAR FILTRATION RATE . ESTIMATED GFR I S NOT APPLICABLE FOR DIALYSIS PATIEN TS. Orange P[employer] Supervisor ID - MARLON Ferrera moderately ictericHEPATIC FUNCTION [id number] 08:06:00 Test Item Value Reference Range Interpretation Comments TOTAL PROTEIN (BEAKER) (test code = 5.6 gm/dL 6.0-8.3 L 770) ALBUMIN (BEAKER) (test code = 1145) 2.3 g/dL 3.5-5.0 L BILIRUBIN TOTAL (BEAKER) (test code 4.3 mg/dL 0.2-1.2 H = 377) BILIRUBIN DIRECT (BEAKER) (test 1.6 mg/dL 0.1-0.5 H code = 706) ALKALINE PHOSPHATASE (BEAKER) (test 99 U/L 40-150 code = 346) AST (SGOT) (BEAKER) (test code = 35 U/L 5-34 H 353) ALT (SGPT) (BEAKER) (test code = 19 U/L 6-55 347) Orange Picking Supervisor ID Ajay Ferrera moderately ictericPROTHROMBIN TIME/[id number] 07:51:15 Test Item Value Reference Range Interpretation Comments PROTIME (BEAKER) 20.6 seconds 11.9-14.2 H (test code = 759) INR (BEAKER) (test 1.80 See_Comment [Automat ed message] code = 370) The system [employer] generated this result transmitted ref erence range: <=5.90. The reference range was not used to int erpret this result as normal/abnormal . RECOMMENDED COUMADIN/WARFARIN INR THERAPY RANGESSTANDARD DOSE: 2.0 - 3.0 Includes: PROPHYLAXIS forvenous thrombosis, systemic embolization; TREATMENT for venous thrombosis and/or pulmonary embolus.HIGH RISK: Target INR is 2.5-3.5 for patients with mechanical heart valves.HEPATIC FUNCTION [id number] 07:41:30 Test Item Value Reference Range Interpretation Comments TOTAL PROTEIN (BEAKER) (test code = 5.8 gm/dL 6.0-8.3 L 770) ALBUMIN (BEAKER) (test code = 1145) 2.5 g/dL 3.5-5.0 L BILIRUBIN TOTAL (BEAKER) (test code 4.1 mg/dL 0.2-1.2 H = 377) BILIRUBIN DIRECT (BEAKER) (test 1.6 mg/dL 0.1-0.5 H code = 706) ALKALINE PHOSPHATASE (BEAKER) (test 113 U/L 40-150 code = 346) AST (SGOT) (BEAKER) (test code = 45 U/L 5-34 H 353) ALT (SGPT) (BEAKER) (test code = 21 U/L 6-55 347) Orange Picking Supervisor ID - PIAYA LSpecimen moderately ictericBASIC METABOLIC [id number] 07:41:29 Test Item Value Reference Range Interpretation Comments SODIUM (BEAKER) 140 meq/L 136-145 (test code = 381) POTASSIUM (BEAKER) 3.5 meq/L 3.5-5.1 (test code = 379) CHLORIDE (BEAKER) 108 meq/L 98-107 H (test code = 382) CO2 (BEAKER) (test 25 meq/L 22-29 code = 355) BLOOD UREA NITROGEN 11 mg/dL 7-21 (BEAKER) (test code = 354) CREATININE (BEAKER) 0.74 mg/dL 0.57-1.25 (test code = 358) GLUCOSE RANDOM 80 mg/dL 70-105 (BEAKER) (test code = 652) CALCIUM (BEAKER) 8.3 mg/dL 8.4-10.2 L (test code = 697) EGFR (BEAKER) (test 80 mL/min/1.73 ESTIMA BARRON GFR IS code = 1092) sq m NOT ACCURATE CREATININE CLEARANCE IN PREDICTING GLOMERULAR FILTRATION RATE . ESTIMATED GFR I S NOT APPLICABLE FOR DIALYSIS PATIEN TS. Orange Picking Supervisor ID - PIAYA LSpecimen moderately ictericPROTHROMBIN TIME/[id number] 07:34:58 Test Item Value Reference Range Interpretation Comments PROTIME (BEAKER) 19.3 seconds 11.9-14.2 H (test code = 759) INR (BEAKER) (test 1.66 See_Comment [Automat ed message] code = 370) The system [employer] generated this result transmitted ref erence range: <=5.90. The reference range was not used to int erpret this result as normal/abnormal . RECOMMENDED COUMADIN/WARFARIN INR THERAPY RANGESSTANDARD DOSE: 2.0 - 3.0 Includes: PROPHYLAXIS forvenous thrombosis, systemic embolization; TREATMENT for venous thrombosis and/or pulmonary embolus.HIGH RISK: Target INR is 2.5-3.5 for patients with mechanical heart valves.CBC W/PLT COUNT & AUTO DIFFERENTIAL 2021-09-13 07:30:35 Test Item Value Reference Range Interpretation Comments WHITE BLOOD CELL COUNT (BEAKER) 8.6 K/ L 3.5-10.5 (test code = 775) RED BLOOD CELL COUNT (BEAKER) 2.72 M/ L 3.93-5.22 L (test code = 761) HEMOGLOBIN (BEAKER) (test code = 8.8 GM/DL 11.2-15.7 L 410) HEMATOCRIT (BEAKER) (test code = 28.0 % 34.1-44.9 L 411) MEAN CORPUSCULAR VOLUME (BEAKER) 102.9 fL 79.4-94.8 H (test code = 753) MEAN CORPUSCULAR HEMOGLOBIN 32.4 pg 25.6-32.2 H (BEAKER) (test code = 751) MEAN CORPUSCULAR HEMOGLOBIN CONC 31.4 GM/DL 32.2-35.5 L (BEAKER) (test code = 752) RED CELL DISTRIBUTION WIDTH 19.0 % 11.7-14.4 H (BEAKER) (test code = 412) PLATELET COUNT (BEAKER) (test 110 K/CU MM 150-450 L code = 756) MEAN PLATELET VOLUME (BEAKER) 11.6 fL 9.4-12.3 (test code = 754) NUCLEATED RED BLOOD CELLS 0 /100 WBC 0-0 (BEAKER) (test code = 413) NEUTROPHILS RELATIVE PERCENT 72 % (BEAKER) (test code = 429) LYMPHOCYTES RELATIVE PERCENT 15 % (BEAKER) (test code = 430) MONOCYTES RELATIVE PERCENT 7 % (BEAKER) (test code = 431) EOSINOPHILS RELATIVE PERCENT 4 % (BEAKER) (test code = 432) BASOPHILS RELATIVE PERCENT 1 % (BEAKER) (test code = 437) NEUTROPHILS ABSOLUTE COUNT 6.15 K/ L 1.56-6.13 H (BEAKER) (test code = 670) LYMPHOCYTES ABSOLUTE COUNT 1.31 K/ L 1.18-3.74 (BEAKER) (test code = 414) MONOCYTES ABSOLUTE COUNT (BEAKER) 0.59 K/ L 0.24-0.36 H (test code = 415) EOSINOPHILS ABSOLUTE COUNT 0.34 K/ L 0.04-0.36 (BEAKER) (test code = 416) BASOPHILS ABSOLUTE COUNT (BEAKER) 0.05 K/ L 0.01-0.08 (test code = 417) IMMATURE GRANULOCYTES-RELATIVE 1 % 0-1 PERCENT (BEAKER) (test code = 2801) VITAMIN [id number] 07:00:04 Test Item Value Reference Range Interpretation Comments VITAMIN B12 (BEAKER) (test code = > pg/mL 213-816 H 774) Orange Picking Supervisor ID - ZAC WBASIC METABOLIC [id number] 06:43:51 Test Item Value Reference Range Interpretation Comments SODIUM (BEAKER) 139 meq/L 136-145 (test code = 381) POTASSIUM (BEAKER) 3.8 meq/L 3.5-5.1 (test code = 379) CHLORIDE (BEAKER) 110 meq/L 98-107 H (test code = 382) CO2 (BEAKER) (test 24 meq/L 22-29 code = 355) BLOOD UREA NITROGEN 12 mg/dL 7-21 (BEAKER) (test code = 354) CREATININE (BEAKER) 0.72 mg/dL 0.57-1.25 (test code = 358) GLUCOSE RANDOM 80 mg/dL 70-105 (BEAKER) (test code = 652) CALCIUM (BEAKER) 7.8 mg/dL 8.4-10.2 L (test code = 697) EGFR (BEAKER) (test 83 mL/min/1.73 ESTIMA BARRON GFR IS code = 1092) sq m NOT ACCURATE CREATININE CLEARANCE IN PREDICTING GLOMERULAR FILTRATION RATE . ESTIMATED GFR I S NOT APPLICABLE FOR DIALYSIS PATIEN TS. Orange Picking Supervisor ID - ZAC WOperator ID - ELODIARADHA LSpecimen slightly ictericVITAMIN D, [id number] 05:27:33 Test Item Value Reference Range Interpretation Comments VITAMIN D 25-OH (BEAKER) (test code 4.4 ng/mL 6.6-49.9 L = 2764) Effective 05/22/2017: Reference Range ChangeNew: 6.6-49.9 ng/mL Previous: 13.0-47.8 ng/mLRecommended Vitamin D Target Range: 30.0-40.0 ng/mLOperator ID - MARLON LC-REACTIVE [id number] 05:23:46 Test Item Value Reference Range Interpretation Comments C-REACTIVE PROTEIN (BEAKER) (test 1.00 mg/dL 0.00-0.50 H code = 676) Orange Picking Supervisor ID - ZAC [id number] 05:23:45 Test Item Value Reference Range Interpretation Comments MAGNESIUM (BEAKER) (test code = 1.6 mg/dL 1.6-2.6 627) Orange Picking Supervisor ID - ZAC WHEPATIC FUNCTION [id number] 05:23:45 Test Item Value Reference Range Interpretation Comments TOTAL PROTEIN (BEAKER) (test code = 5.0 gm/dL 6.0-8.3 L 770) ALBUMIN (BEAKER) (test code = 1145) 2.2 g/dL 3.5-5.0 L BILIRUBIN TOTAL (BEAKER) (test code 3.9 mg/dL 0.2-1.2 H = 377) BILIRUBIN DIRECT (BEAKER) (test 1.6 mg/dL 0.1-0.5 H code = 706) ALKALINE PHOSPHATASE (BEAKER) (test 94 U/L 40-150 code = 346) AST (SGOT) (BEAKER) (test code = 39 U/L 5-34 H 353) ALT (SGPT) (BEAKER) (test code = 17 U/L 6-55 347) [employer] Picking Supervisor ID - ZAC WSpecimen slightly ictericPROTHROMBIN TIME/[id number] 04:53:27 Test Item Value Reference Range Interpretation Comments PROTIME (BEAKER) 22.4 seconds 11.9-14.2 H (test code = 759) INR (BEAKER) (test 2.00 See_Comment [Automat ed message] code = 370) The system [employer] generated this result transmitted ref erence range: <=5.90. The reference range was not used to int erpret this result as normal/abnormal . RECOMMENDED COUMADIN/WARFARIN INR THERAPY RANGESSTANDARD DOSE: 2.0 - 3.0 Includes: PROPHYLAXIS forvenous thrombosis, systemic embolization; TREATMENT for venous thrombosis and/or pulmonary embolus.HIGH RISK: Target INR is 2.5-3.5 for patients with mechanical heart valves.CBC W/PLT COUNT & AUTO DIFFERENTIAL 2021-09-12 04:49:49 Test Item Value Reference Range Interpretation Comments WHITE BLOOD CELL COUNT (BEAKER) 10.1 K/ L 3.5-10.5 (test code = 775) RED BLOOD CELL COUNT (BEAKER) 2.68 M/ L 3.93-5.22 L (test code = 761) HEMOGLOBIN (BEAKER) (test code = 8.4 GM/DL 11.2-15.7 L 410) HEMATOCRIT (BEAKER) (test code = 27.7 % 34.1-44.9 L 411) MEAN CORPUSCULAR VOLUME (BEAKER) 103.4 fL 79.4-94.8 H (test code = 753) MEAN CORPUSCULAR HEMOGLOBIN 31.3 pg 25.6-32.2 (BEAKER) (test code = 751) MEAN CORPUSCULAR HEMOGLOBIN CONC 30.3 GM/DL 32.2-35.5 L (BEAKER) (test code = 752) RED CELL DISTRIBUTION WIDTH 17.9 % 11.7-14.4 H (BEAKER) (test code = 412) PLATELET COUNT (BEAKER) (test 107 K/CU MM 150-450 L code = 756) MEAN PLATELET VOLUME (BEAKER) 11.1 fL 9.4-12.3 (test code = 754) NUCLEATED RED BLOOD CELLS 0 /100 WBC 0-0 (BEAKER) (test code = 413) NEUTROPHILS RELATIVE PERCENT 74 % (BEAKER) (test code = 429) LYMPHOCYTES RELATIVE PERCENT 13 % (BEAKER) (test code = 430) MONOCYTES RELATIVE PERCENT 7 % (BEAKER) (test code = 431) EOSINOPHILS RELATIVE PERCENT 4 % (BEAKER) (test code = 432) BASOPHILS RELATIVE PERCENT 0 % (BEAKER) (test code = 437) NEUTROPHILS ABSOLUTE COUNT 7.48 K/ L 1.56-6.13 H (BEAKER) (test code = 670) LYMPHOCYTES ABSOLUTE COUNT 1.34 K/ L 1.18-3.74 (BEAKER) (test code = 414) MONOCYTES ABSOLUTE COUNT (BEAKER) 0.70 K/ L 0.24-0.36 H (test code = 415) EOSINOPHILS ABSOLUTE COUNT 0.35 K/ L 0.04-0.36 (BEAKER) (test code = 416) BASOPHILS ABSOLUTE COUNT (BEAKER) 0.04 K/ L 0.01-0.08 (test code = 417) IMMATURE GRANULOCYTES-RELATIVE 2 % 0-1 H PERCENT (BEAKER) (test code = 2801) Basic Metabolic [id number] 08:26:03 Test Item Value Reference Range Interpretation Comments Sodium (test code = 137 meq/L 413-517 8990-2) Potassium (test code 3.5 meq/L 3.5-5.1 = 2823-3) Chloride (test code = 109 meq/L 98-107 H 2075-0) CO2 (test code = 24 meq/L 22-29 2028-9) BUN (test code = 13 mg/dL 7-21 3094-0) Creatinine (test code 0.73 mg/dL 0.57-1.25 = 2160-0) Glucose (test code = 85 mg/dL 70-105 2345-7) Calcium (test code = 7.7 mg/dL 8.4-10.2 L 89702-1) EGFR (test code = 81 mL/min/1.73 sq m [facility] [address]-5) NOT ACCURATE CREATININE CLEARANCE IN PREDICTING GLOMERULAR FILTRATION RATE . ESTIMATED GFR I S NOT APPLICABLE FOR DIALYSIS PATIENTS. REJI (test code = REJI) Orange Picking Supervisor ID - MARLON Coving[place] ID - DBSpecimen slightly icteric Lab Interpretation Abnormal (test code = 65171-0) [facility] METABOLIC [id number] 08:26:03 Test Item Value Reference Range Interpretation Comments SODIUM (BEAKER) 137 meq/L 136-145 (test code = 381) POTASSIUM (BEAKER) 3.5 meq/L 3.5-5.1 (test code = 379) CHLORIDE (BEAKER) 109 meq/L 98-107 H (test code = 382) CO2 (BEAKER) (test 24 meq/L 22-29 code = 355) BLOOD UREA NITROGEN 13 mg/dL 7-21 (BEAKER) (test code = 354) CREATININE (BEAKER) 0.73 mg/dL 0.57-1.25 (test code = 358) GLUCOSE RANDOM 85 mg/dL 70-105 (BEAKER) (test code = 652) CALCIUM (BEAKER) 7.7 mg/dL 8.4-10.2 L (test code = 697) EGFR (BEAKER) (test 81 mL/min/1.73 ESTIMA BARRON GFR IS code = 1092) sq m NOT ACCURATE CREATININE CLEARANCE IN PREDICTING GLOMERULAR FILTRATION RATE . ESTIMATED GFR I S NOT APPLICABLE FOR DIALYSIS PATIEN TS. Orange Picking Supervisor ID - MARLON Covington ID - DBSpecimen slightly ictericHepatic function [id number] 07:24:45 Test Item Value Reference Range Interpretation Comments Protein, Total (test 4.9 See_Comment L [Autom ated code = 2885-2) message] The system which generated this result transmitted reference range : 6.0 - 8.3 gm/dL . The reference range was not used to interpr et this result as normal/abnormal . Albumin (test code = 2.2 g/dL 3.5-5.0 L 22931-8) Total Bilirubin (test 4.0 mg/dL 0.2-1.2 H code = 1974-2) Bilirubin, Direct 1.5 mg/dL 0.1-0.5 H (test code = 1967-7) Alkaline Phosphatase 111 U/L 40-150 (test code = 6768-6) AST (test code = 53 U/L 5-34 H 1920-8) ALT (test code = 17 U/L 6-55 1742-6) REJI (test code = REJI) Orange Picking Supervisor ID Ajay MARLON LSpecimen slightly icteric Lab Interpretation Abnormal (test code = 47568-5) [facility] Test Item Value Reference Range Interpretation Comments Magnesium (test code = 1.7 mg/dL 1.6-2.6 84482-1) REJI (test code = REJI) Orange Picking Supervisor ID Ajay MARLON L Lab Interpretation (test Normal code = 42791-4) [facility]2022-01-31 07:24:45 Test Item Value Reference Range Interpretation Comments MAGNESIUM (BEAKER) (test code = 1.7 mg/dL 1.6-2.6 627) Orange Picking Supervisor ID - MARLON LHEPATIC FUNCTION [id number] 07:24:45 Test Item Value Reference Range Interpretation Comments TOTAL PROTEIN (BEAKER) (test code = 4.9 gm/dL 6.0-8.3 L 770) ALBUMIN (BEAKER) (test code = 1145) 2.2 g/dL 3.5-5.0 L BILIRUBIN TOTAL (BEAKER) (test code 4.0 mg/dL 0.2-1.2 H = 377) BILIRUBIN DIRECT (BEAKER) (test 1.5 mg/dL 0.1-0.5 H code = 706) ALKALINE PHOSPHATASE (BEAKER) (test 111 U/L 40-150 code = 346) AST (SGOT) (BEAKER) (test code = 53 U/L 5-34 H 353) ALT (SGPT) (BEAKER) (test code = 17 U/L 6-55 347) Orange Picking Supervisor ID - MARLON LSpecimen slightly ictericProthrombin time/[id number] 06:40:57 Test Item Value Reference Interpretation Comments Range Protime (test code = 22.5 See_Comment H [Autom ated 3752-2) message] The system which generated this result transmitted reference range : 11.9 - 14.2 seconds. The reference range was not used to interpret this result as normal/abnormal . INR (test code = 2.01 See_Comment [Automated 4931-6) message] The system which generated this result transmitted reference range : <=5.90. The reference range was not used to interpret this result as normal/abnormal . REJI (test code = RECOMMENDED REJI) COUMADIN/WARFARIN INR THERAPY RANGESSTANDARD DOSE: 2.0 - 3.0 Includes: PROPHYLAXIS for venous thrombosis, systemic embolization; TREATMENT for venous thrombosis and/or pulmonary embolus.HIGH RISK: Target INR is 2.5-3.5 for patients with mechanical heart valves. Lab Interpretation Abnormal (test code = 37320-5) [facility][id number] 06:40:57 Test Item Value Reference Range Interpretation Comments PROTIME (BEAKER) 22.5 seconds 11.9-14.2 H (test code = 759) INR (BEAKER) (test 2.01 See_Comment [Automat ed message] code = 370) The system whic h generated this result transmitted ref erence range: <=5.90. The reference range was not used to int erpret this result as normal/abnormal . RECOMMENDED COUMADIN/WARFARIN INR THERAPY RANGESSTANDARD DOSE: 2.0 - 3.0 Includes: PROPHYLAXIS forvenous thrombosis, systemic embolization; TREATMENT for venous thrombosis and/or pulmonary embolus.HIGH RISK: Target INR is 2.5-3.5 for patients with mechanical heart valves.CBC with platelet count + automated diff 2021-09-11 06:36:06 Test Item Value Reference Range Interpretation Comments WBC (test code = 6690-2) 10.6 See_Comment H [A utomated message] The system [employer] generated this result transmitted ref erence range: 3.5 - 10 .5 K/L. The refe rence range was not u sed to interpret this result as normal/abnor mal. RBC (test code = 789-8) 2.76 See_Comment L [Au tomated message] The system [employer] generated this result transmitted ref erence range: 3.93 - 5 .22 M/L. The refe rence range was not u sed to interpret this result as normal/abnor mal. MCHC (test code = 786-4) 31.5 See_Comment L [A utomated message] The system [employer] generated this result transmitted ref erence range: 32.2 - 3 5.5 GM/DL. The refe rence range was not u sed to interpret this result as normal/abnor mal. Hematocrit (test code = 27.6 % 34.1-44.9 L 4544-3) MCV (test code = 787-2) 100.0 fL 79.4-94.8 H MCH (test code = 785-6) 31.5 pg 25.6-32.2 RDW (test code = 788-0) 17.4 % 11.7-14.4 H Platelets (test code = 101 See_Comment L [Aut omated message] 777-3) The system [employer] generated this result transmitted ref erence range: 150 - 45 0 K/CU MM. The referen ce range was not u sed to interpret this result as normal/abnor mal. MPV (test code = 9.6 fL 9.4-12.3 56533-8) nRBC (test code = 413) 0 See_Comment [Aut omated message] The system [employer] generated this result transmitted ref erence range: 0 - 0 /1 00 WBC. The refere nce range was not u sed to interpret this result as normal/abnor mal. % Neutros (test code = 78 % 429) % Lymphs (test code = 11 % 430) % Monos (test code = 6 % 431) % Eos (test code = 432) 3 % % Baso (test code = 437) 0 % # Neutros (test code = 8.29 See_Comment H [Aut omated message] 670) The system [employer] generated this result transmitted ref erence range: 1.56 - 6 .13 K/L. The refe rence range was not u sed to interpret this result as normal/abnor mal. # Lymphs (test code = 1.18 See_Comment [Auto mated message] 414) The system [employer] generated this result transmitted ref erence range: 1.18 - 3 .74 K/L. The refe rence range was not u sed to interpret this result as normal/abnor mal. # Monos (test code = 0.64 See_Comment H [Autom ated message] 415) The system [employer] generated this result transmitted ref erence range: 0.24 - 0 .36 K/L. The refe rence range was not u sed to interpret this result as normal/abnor mal. # Eos (test code = 416) 0.31 See_Comment [Au tomated message] The system [employer] generated this result transmitted ref erence range: 0.04 - 0 .36 K/L. The refe rence range was not u sed to interpret this result as normal/abnor mal. # Baso (test code = 417) 0.02 See_Comment [A utomated message] The system [employer] generated this result transmitted ref erence range: 0.01 - 0 .08 K/L. The refe rence range was not u sed to interpret this result as normal/abnor mal. Immature 1 % 0-1 Granulocytes-Relative (test code = 2801) Lab Interpretation (test Abnormal code = 51864-4) [facility] W/PLT COUNT & AUTO [id number] 06:36:06 Test Item Value Reference Range Interpretation Comments WHITE BLOOD CELL COUNT (BEAKER) 10.6 K/ L 3.5-10.5 H (test code = 775) RED BLOOD CELL COUNT (BEAKER) 2.76 M/ L 3.93-5.22 L (test code = 761) HEMOGLOBIN (BEAKER) (test code = 8.7 GM/DL 11.2-15.7 L 410) HEMATOCRIT (BEAKER) (test code = 27.6 % 34.1-44.9 L 411) MEAN CORPUSCULAR VOLUME (BEAKER) 100.0 fL 79.4-94.8 H (test code = 753) MEAN CORPUSCULAR HEMOGLOBIN 31.5 pg 25.6-32.2 (BEAKER) (test code = 751) MEAN CORPUSCULAR HEMOGLOBIN CONC 31.5 GM/DL 32.2-35.5 L (BEAKER) (test code = 752) RED CELL DISTRIBUTION WIDTH 17.4 % 11.7-14.4 H (BEAKER) (test code = 412) PLATELET COUNT (BEAKER) (test 101 K/CU MM 150-450 L code = 756) MEAN PLATELET VOLUME (BEAKER) 9.6 fL 9.4-12.3 (test code = 754) NUCLEATED RED BLOOD CELLS 0 /100 WBC 0-0 (BEAKER) (test code = 413) NEUTROPHILS RELATIVE PERCENT 78 % (BEAKER) (test code = 429) LYMPHOCYTES RELATIVE PERCENT 11 % (BEAKER) (test code = 430) MONOCYTES RELATIVE PERCENT 6 % (BEAKER) (test code = 431) EOSINOPHILS RELATIVE PERCENT 3 % (BEAKER) (test code = 432) BASOPHILS RELATIVE PERCENT 0 % (BEAKER) (test code = 437) NEUTROPHILS ABSOLUTE COUNT 8.29 K/ L 1.56-6.13 H (BEAKER) (test code = 670) LYMPHOCYTES ABSOLUTE COUNT 1.18 K/ L 1.18-3.74 (BEAKER) (test code = 414) MONOCYTES ABSOLUTE COUNT (BEAKER) 0.64 K/ L 0.24-0.36 H (test code = 415) EOSINOPHILS ABSOLUTE COUNT 0.31 K/ L 0.04-0.36 (BEAKER) (test code = 416) BASOPHILS ABSOLUTE COUNT (BEAKER) 0.02 K/ L 0.01-0.08 (test code = 417) IMMATURE GRANULOCYTES-RELATIVE 1 % 0-1 PERCENT (BEAKER) (test code = 2801) BASIC METABOLIC [id number] 09:04:28 Test Item Value Reference Range Interpretation Comments SODIUM (BEAKER) 140 meq/L 136-145 (test code = 381) POTASSIUM (BEAKER) 3.3 meq/L 3.5-5.1 L (test code = 379) CHLORIDE (BEAKER) 111 meq/L 98-107 H (test code = 382) CO2 (BEAKER) (test 21 meq/L 22-29 L code = 355) BLOOD UREA NITROGEN 16 mg/dL 7-21 (BEAKER) (test code = 354) CREATININE (BEAKER) 0.81 mg/dL 0.57-1.25 (test code = 358) GLUCOSE RANDOM 97 mg/dL 70-105 (BEAKER) (test code = 652) CALCIUM (BEAKER) 7.8 mg/dL 8.4-10.2 L (test code = 697) EGFR (BEAKER) (test 72 mL/min/1.73 ESTIMA BARRON GFR IS code = 1092) sq m NOT ACCURATE CREATININE CLEARANCE IN PREDICTING GLOMERULAR FILTRATION RATE . ESTIMATED GFR I S NOT APPLICABLE FOR DIALYSIS PATIEN TS. [employer] ID - DBSpecimen moderately [id number] 08:26:10 Test Item Value Reference Range Interpretation Comments MAGNESIUM (BEAKER) (test code = 1.8 mg/dL 1.6-2.6 627) [employer] Supervisor ID - DBHEPATIC FUNCTION [id number] 08:26:10 Test Item Value Reference Range Interpretation Comments TOTAL PROTEIN (BEAKER) (test code = 5.3 gm/dL 6.0-8.3 L 770) ALBUMIN (BEAKER) (test code = 1145) 2.5 g/dL 3.5-5.0 L BILIRUBIN TOTAL (BEAKER) (test code 4.7 mg/dL 0.2-1.2 H = 377) BILIRUBIN DIRECT (BEAKER) (test 1.8 mg/dL 0.1-0.5 H code = 706) ALKALINE PHOSPHATASE (BEAKER) (test 99 U/L 40-150 code = 346) AST (SGOT) (BEAKER) (test code = 34 U/L 5-34 353) ALT (SGPT) (BEAKER) (test code = 17 U/L 6-55 347) [employer] Supervisor ID - DBSpecimen moderately ictericPROTHROMBIN TIME/[id number] 07:14:13 Test Item Value Reference Range Interpretation Comments PROTIME (BEAKER) 23.1 seconds 11.9-14.2 H (test code = 759) INR (BEAKER) (test 2.08 See_Comment [Automat ed message] code = 370) The system [employer] generated this result transmitted ref erence range: <=5.90. The reference range was not used to int erpret this result as normal/abnormal . RECOMMENDED COUMADIN/WARFARIN INR THERAPY RANGESSTANDARD DOSE: 2.0 - 3.0 Includes: PROPHYLAXIS forvenous thrombosis, systemic embolization; TREATMENT for venous thrombosis and/or pulmonary embolus.HIGH RISK: Target INR is 2.5-3.5 for patients with mechanical heart valves.CBC W/PLT COUNT & AUTO DIFFERENTIAL 2021-09-10 07:07:41 Test Item Value Reference Range Interpretation Comments WHITE BLOOD CELL COUNT (BEAKER) 13.5 K/ L 3.5-10.5 H (test code = 775) RED BLOOD CELL COUNT (BEAKER) 3.04 M/ L 3.93-5.22 L (test code = 761) HEMOGLOBIN (BEAKER) (test code = 9.8 GM/DL 11.2-15.7 L 410) HEMATOCRIT (BEAKER) (test code = 31.3 % 34.1-44.9 L 411) MEAN CORPUSCULAR VOLUME (BEAKER) 103.0 fL 79.4-94.8 H (test code = 753) MEAN CORPUSCULAR HEMOGLOBIN 32.2 pg 25.6-32.2 (BEAKER) (test code = 751) MEAN CORPUSCULAR HEMOGLOBIN CONC 31.3 GM/DL 32.2-35.5 L (BEAKER) (test code = 752) RED CELL DISTRIBUTION WIDTH 17.1 % 11.7-14.4 H (BEAKER) (test code = 412) PLATELET COUNT (BEAKER) (test 104 K/CU MM 150-450 L code = 756) MEAN PLATELET VOLUME (BEAKER) 11.5 fL 9.4-12.3 (test code = 754) NUCLEATED RED BLOOD CELLS 0 /100 WBC 0-0 (BEAKER) (test code = 413) NEUTROPHILS RELATIVE PERCENT 80 % (BEAKER) (test code = 429) LYMPHOCYTES RELATIVE PERCENT 11 % (BEAKER) (test code = 430) MONOCYTES RELATIVE PERCENT 5 % (BEAKER) (test code = 431) EOSINOPHILS RELATIVE PERCENT 2 % (BEAKER) (test code = 432) BASOPHILS RELATIVE PERCENT 0 % (BEAKER) (test code = 437) NEUTROPHILS ABSOLUTE COUNT 10.78 K/ L 1.56-6.13 H (BEAKER) (test code = 670) LYMPHOCYTES ABSOLUTE COUNT 1.46 K/ L 1.18-3.74 (BEAKER) (test code = 414) MONOCYTES ABSOLUTE COUNT (BEAKER) 0.63 K/ L 0.24-0.36 H (test code = 415) EOSINOPHILS ABSOLUTE COUNT 0.29 K/ L 0.04-0.36 (BEAKER) (test code = 416) BASOPHILS ABSOLUTE COUNT (BEAKER) 0.05 K/ L 0.01-0.08 (test code = 417) IMMATURE GRANULOCYTES-RELATIVE 2 % 0-1 H PERCENT (BEAKER) (test code = 2801) BASIC METABOLIC [id number] 09:04:18 Test Item Value Reference Range Interpretation Comments SODIUM (BEAKER) 139 meq/L 136-145 (test code = 381) POTASSIUM (BEAKER) 3.4 meq/L 3.5-5.1 L (test code = 379) CHLORIDE (BEAKER) 113 meq/L 98-107 H (test code = 382) CO2 (BEAKER) (test 19 meq/L 22-29 L code = 355) BLOOD UREA NITROGEN 15 mg/dL 7-21 (BEAKER) (test code = 354) CREATININE (BEAKER) 0.77 mg/dL 0.57-1.25 (test code = 358) GLUCOSE RANDOM 96 mg/dL 70-105 (BEAKER) (test code = 652) CALCIUM (BEAKER) 7.8 mg/dL 8.4-10.2 L (test code = 697) EGFR (BEAKER) (test 76 mL/min/1.73 ESTIMA BARRON GFR IS code = 1092) sq m NOT ACCURATE CREATININE CLEARANCE IN PREDICTING GLOMERULAR FILTRATION RATE . ESTIMATED GFR I S NOT APPLICABLE FOR DIALYSIS PATIEN TS. Orange Picking Supervisor ID - DBOperator ID - DBSpecimen moderately ictericHEPATIC FUNCTION [id number] 07:53:06 Test Item Value Reference Range Interpretation Comments TOTAL PROTEIN (BEAKER) (test code = 5.2 gm/dL 6.0-8.3 L 770) ALBUMIN (BEAKER) (test code = 1145) 2.6 g/dL 3.5-5.0 L BILIRUBIN TOTAL (BEAKER) (test code 4.6 mg/dL 0.2-1.2 H = 377) BILIRUBIN DIRECT (BEAKER) (test 1.8 mg/dL 0.1-0.5 H code = 706) ALKALINE PHOSPHATASE (BEAKER) (test 96 U/L 40-150 code = 346) AST (SGOT) (BEAKER) (test code = 30 U/L 5-34 353) ALT (SGPT) (BEAKER) (test code = 16 U/L 6-55 347) Orange Picking Supervisor ID - DBSpecimen moderately ictericManual [id number] 07:50:25 Test Item Value Reference Range Interpretation Comments % Neutros (test code = 96 % 2816) % Monos (test code = 2 % 2818) % Eos (test code = 2819) 1 % % Bands (test code = 1 % 0-10 2826) # Neutros (test code = 13.34 K/ul 1.56-6.13 H 2830) # Monos (test code = 0.28 K/uL 0.24-0.36 2832) # Eos (test code = 2834) 0.14 K/uL 0.04-0.36 # Bands (test code = 0.14 K/uL 0.00-0.80 2840) Total Counted (test code 100 = 1351) WBC Morphology (test Normal code = 487) Platelet Morphology Normal (test code = 486) Anisocytosis (test code 1+ few = 961) Poikilocytes (test code 3+ many = 966) Elliptocytes (test code 1+ few = 962) Ovalocytes (test code = 1+ few 477) [place] Cells (test code = 1+ few 474) Artifact (test code = Present 3432) Platelet Conc (test code Decreased = 3438) REJI (test code = REJI) Orange Picking Supervisor ID - michaela Cutelr comments: Slide comments: Lab Interpretation (test Abnormal code = 97970-5) [facility](CELLAVISION MANUAL DIFF)2021-09-09 07:50:25 Test Item Value Reference Range Interpretation Comments NEUTROPHILS - REL 96 % (CELLAVISION)(BEAKER) (test code = 2816) MONOCYTES - REL 2 % (CELLAVISION)(BEAKER) (test code = 2818) EOSINOPHILS - REL 1 % (CELLAVISION)(BEAKER) (test code = 2819) BANDS - REL (CELLAVISION)(BEAKER) 1 % 0-10 (test code = 2826) NEUTROPHILS - ABS 13.34 K/ul 1.56-6.13 H (CELLAVISION)(BEAKER) (test code = 2830) MONOCYTES - ABS 0.28 K/uL 0.24-0.36 (CELLAVISION)(BEAKER) (test code = 2832) EOSINOPHILS - ABS 0.14 K/uL 0.04-0.36 (CELLAVISION)(BEAKER) (test code = 2834) BANDS - ABS (CELLAVISION)(BEAKER) 0.14 K/uL 0.00-0.80 (test code = 2840) TOTAL COUNTED (BEAKER) (test code 100 = 1351) WBC MORPHOLOGY (BEAKER) (test code Normal = 487) PLT MORPHOLOGY (BEAKER) (test code Normal = 486) ANISOCYTOSIS (BEAKER) (test code = 1+ few 961) POIKILOCYTES (BEAKER) (test code = 3+ many 966) ELLIPTOCYTES (BEAKER) (test code = 1+ few 962) OVALOCYTES (BEAKER) (test code = 1+ few 477) ELIF CELLS (BEAKER) (test code = 1+ few 474) ARTIFACT (CELLAVISION)(BEAKER) Present (test code = 3432) PLATELET CONCENTRATION Decreased (CELLAVISION)(BEAKER) (test code = 3438) Orange Picking Supervisor ID - michaela Cutler comments: Slide comments:CBC W/PLT COUNT & AUTO [id number] 07:50:24 Test Item Value Reference Range Interpretation Comments WHITE BLOOD CELL COUNT (BEAKER) 13.9 K/ L 3.5-10.5 H (test code = 775) RED BLOOD CELL COUNT (BEAKER) 3.21 M/ L 3.93-5.22 L (test code = 761) HEMOGLOBIN (BEAKER) (test code = 10.1 GM/DL 11.2-15.7 L 410) HEMATOCRIT (BEAKER) (test code = 31.9 % 34.1-44.9 L 411) MEAN CORPUSCULAR VOLUME (BEAKER) 99.4 fL 79.4-94.8 H (test code = 753) MEAN CORPUSCULAR HEMOGLOBIN 31.5 pg 25.6-32.2 (BEAKER) (test code = 751) MEAN CORPUSCULAR HEMOGLOBIN CONC 31.7 GM/DL 32.2-35.5 L (BEAKER) (test code = 752) RED CELL DISTRIBUTION WIDTH 16.7 % 11.7-14.4 H (BEAKER) (test code = 412) PLATELET COUNT (BEAKER) (test code 91 K/CU MM 150-450 L = 756) MEAN PLATELET VOLUME (BEAKER) 11.6 fL 9.4-12.3 (test code = 754) NUCLEATED RED BLOOD CELLS (BEAKER) 0 /100 WBC 0-0 (test code = 413) PROTHROMBIN [id number] 06:28:05 Test Item Value Reference Range Interpretation Comments PROTIME (BEAKER) 24.0 seconds 11.9-14.2 H (test code = 759) INR (BEAKER) (test 2.18 See_Comment [Automat ed message] code = 370) The system [employer] generated this result transmitted ref erence range: <=5.90. The reference range was not used to int erpret this result as normal/abnormal . RECOMMENDED COUMADIN/WARFARIN INR THERAPY RANGESSTANDARD DOSE: 2.0 - 3.0 Includes: PROPHYLAXIS forvenous thrombosis, systemic embolization; TREATMENT for venous thrombosis and/or pulmonary embolus.HIGH RISK: Target INR is 2.5-3.5 for patients with mechanical heart valves.Blood Culture - Routine (Right Venipuncture)2021-09-08 14:01:01 Test Item Value Reference Range Interpretation Comments Result (test code = No growth in 5 days 6463-4) [id number] 14:01:01 Test Item Value Reference Range Interpretation Comments CULTURE (BEAKER) (test No growth in 5 days code = 1095) [id number] 11:09:32 Test Item Value Reference Range Interpretation Comments Ammonia (test code = 35 See_Comment [Autom ated 44417-6) message] The system which generated this result transmit barron reference range : 18 - 72 mol/L . The reference range was not u sed to interpret th is result as normal/abnormal . REJI (test code = REJI) Orange Picking Supervisor ID - PIAYA L Lab Interpretation Normal (test code = 21937-9) [facility] 11:09[facility]32 Test Item Value Reference Range Interpretation Comments AMMONIA (BEAKER) (test code = 348) 35 mol/L 18-72 Orange Picking Supervisor ID - PIAYA LCBC W/PLT COUNT & AUTO [id number] 07:57:44 Test Item Value Reference Range Interpretation Comments WHITE BLOOD CELL COUNT (BEAKER) 13.7 K/ L 3.5-10.5 H (test code = 775) RED BLOOD CELL COUNT (BEAKER) 2.83 M/ L 3.93-5.22 L (test code = 761) HEMOGLOBIN (BEAKER) (test code = 8.9 GM/DL 11.2-15.7 L 410) HEMATOCRIT (BEAKER) (test code = 27.4 % 34.1-44.9 L 411) MEAN CORPUSCULAR VOLUME (BEAKER) 96.8 fL 79.4-94.8 H (test code = 753) MEAN CORPUSCULAR HEMOGLOBIN 31.4 pg 25.6-32.2 (BEAKER) (test code = 751) MEAN CORPUSCULAR HEMOGLOBIN CONC 32.5 GM/DL 32.2-35.5 (BEAKER) (test code = 752) RED CELL DISTRIBUTION WIDTH 16.9 % 11.7-14.4 H (BEAKER) (test code = 412) PLATELET COUNT (BEAKER) (test code 65 K/CU MM 150-450 L = 756) MEAN PLATELET VOLUME (BEAKER) 11.4 fL 9.4-12.3 (test code = 754) NUCLEATED RED BLOOD CELLS (BEAKER) 0 /100 WBC 0-0 (test code = 413) (CELLAVISION MANUAL DIFF)2021-09-08 07:57:44 Test Item Value Reference Range Interpretation Comments NEUTROPHILS - REL 90 % (CELLAVISION)(BEAKER) (test code = 2816) LYMPHOCYTES - REL 2 % (CELLAVISION)(BEAKER) (test code = 2817) MONOCYTES - REL 3 % (CELLAVISION)(BEAKER) (test code = 2818) EOSINOPHILS - REL 3 % (CELLAVISION)(BEAKER) (test code = 2819) MYELOCYTES - REL 1 % 0-0 H (CELLAVISION)(BEAKER) (test code = 2822) ATYPICAL LYMPHOCYTES - REL 1 % 0-0 H (CELLAVISION)(BEAKER) (test code = 2829) NEUTROPHILS - ABS 12.33 K/ul 1.56-6.13 H (CELLAVISION)(BEAKER) (test code = 2830) LYMPHOCYTES - ABS 0.27 K/ul 1.18-3.74 L (CELLAVISION)(BEAKER) (test code = 2831) MONOCYTES - ABS 0.41 K/uL 0.24-0.36 H (CELLAVISION)(BEAKER) (test code = 2832) EOSINOPHILS - ABS 0.41 K/uL 0.04-0.36 H (CELLAVISION)(BEAKER) (test code = 2834) MYELOCYTES-ABS 0.14 K/uL 0.00-0.00 H (CELLAVISION)(BEAKER) (test code = 2837) ATYPICAL LYMPHOCYTES - ABS 0.14 K/uL 0.00-0.00 H (CELLAVISION)(BEAKER) (test code = 2858) TOTAL COUNTED (BEAKER) (test code 100 = 1351) PLT MORPHOLOGY (BEAKER) (test code Normal = 486) SMUDGE CELLS (BEAKER) (test code = Present 1371) TOXIC GRANULATION (BEAKER) (test Present code = 771) POLYCHROMATOPHILLIC RBCS(BEAKER) 1+ few (test code = 478) ANISOCYTOSIS (BEAKER) (test code = 1+ few 961) MICROCYTES (BEAKER) (test code = 1+ few 965) POIKILOCYTES (BEAKER) (test code = 1+ few 966) SPHEROCYTES (BEAKER) (test code = 1+ few 768) TEAR DROP CELLS (BEAKER) (test 1+ few code = 481) BASOPHILIC STIPPLING (BEAKER) Present (test code = 473) ARTIFACT (CELLAVISION)(BEAKER) Present (test code = 3432) PLATELET CONCENTRATION Decreased (CELLAVISION)(BEAKER) (test code = 3438) Orange Picking Supervisor GINA Ferguson comments: Slide comments:BASIC METABOLIC [id number] 06:46:23 Test Item Value Reference Range Interpretation Comments SODIUM (BEAKER) 138 meq/L 136-145 (test code = 381) POTASSIUM (BEAKER) 3.3 meq/L 3.5-5.1 L (test code = 379) CHLORIDE (BEAKER) 115 meq/L 98-107 H (test code = 382) CO2 (BEAKER) (test 18 meq/L 22-29 L code = 355) BLOOD UREA NITROGEN 17 mg/dL 7-21 (BEAKER) (test code = 354) CREATININE (BEAKER) 0.77 mg/dL 0.57-1.25 (test code = 358) GLUCOSE RANDOM 101 mg/dL 70-105 (BEAKER) (test code = 652) CALCIUM (BEAKER) 7.6 mg/dL 8.4-10.2 L (test code = 697) EGFR (BEAKER) (test 76 mL/min/1.73 ESTIMA BARRON GFR IS code = 1092) sq m NOT ACCURATE CREATININE CLEARANCE IN PREDICTING GLOMERULAR FILTRATION RATE . ESTIMATED GFR I S NOT APPLICABLE FOR DIALYSIS PATIEN TS. Orange Picking Supervisor GINA FRANK WSpecimen slightly [id number] 06:42:47 Test Item Value Reference Range Interpretation Comments Phosphorus (test code = 2.4 mg/dL 2.3-4.7 2777-1) REJI (test code = REJI) Orange Picking Supervisor GINA FRANK W Lab Interpretation (test Normal code = 63256-3) [facility] 06:42:47 Test Item Value Reference Range Interpretation Comments PHOSPHORUS (BEAKER) (test code = 2.4 mg/dL 2.3-4.7 604) Orange Picking Supervisor GINA FRANK WHEPATIC FUNCTION [id number] 06:42:47 Test Item Value Reference Range Interpretation Comments TOTAL PROTEIN (BEAKER) (test code = 4.7 gm/dL 6.0-8.3 L 770) ALBUMIN (BEAKER) (test code = 1145) 2.3 g/dL 3.5-5.0 L BILIRUBIN TOTAL (BEAKER) (test code 3.0 mg/dL 0.2-1.2 H = 377) BILIRUBIN DIRECT (BEAKER) (test 1.1 mg/dL 0.1-0.5 H code = 706) ALKALINE PHOSPHATASE (BEAKER) (test 87 U/L 40-150 code = 346) AST (SGOT) (BEAKER) (test code = 29 U/L 5-34 353) ALT (SGPT) (BEAKER) (test code = 15 U/L 6-55 347) Orange Picking Supervisor ID - ZAC Rosales slightly ictericPROTHROMBIN TIME/[id number] 05:37:24 Test Item Value Reference Range Interpretation Comments PROTIME (BEAKER) 26.6 seconds 11.9-14.2 H (test code = 759) INR (BEAKER) (test 2.48 See_Comment [Automat ed message] code = 370) The system [employer] generated this result transmitted ref erence range: <=5.90. The reference range was not used to int erpret this result as normal/abnormal . RECOMMENDED COUMADIN/WARFARIN INR THERAPY RANGESSTANDARD DOSE: 2.0 - 3.0 Includes: PROPHYLAXIS forvenous thrombosis, systemic embolization; TREATMENT for venous thrombosis and/or pulmonary embolus.HIGH RISK: Target INR is 2.5-3.5 for patients with mechanical heart valves.(CELLAVISION MANUAL DIFF)2021-09-07 09:40:44 Test Item Value Reference Range Interpretation Comments NEUTROPHILS - REL 84 % (CELLAVISION)(BEAKER) (test code = 2816) LYMPHOCYTES - REL 5 % (CELLAVISION)(BEAKER) (test code = 2817) MONOCYTES - REL 1 % (CELLAVISION)(BEAKER) (test code = 2818) EOSINOPHILS - REL 5 % (CELLAVISION)(BEAKER) (test code = 2819) METAMYELOCYTES - REL 2 % 0-0 H (CELLAVISION)(BEAKER) (test code = 2821) MYELOCYTES - REL 1 % 0-0 H (CELLAVISION)(BEAKER) (test code = 2822) BANDS - REL (CELLAVISION)(BEAKER) 2 % 0-10 (test code = 2826) NEUTROPHILS - ABS 12.43 K/ul 1.56-6.13 H (CELLAVISION)(BEAKER) (test code = 2830) LYMPHOCYTES - ABS 0.74 K/ul 1.18-3.74 L (CELLAVISION)(BEAKER) (test code = 2831) MONOCYTES - ABS 0.15 K/uL 0.24-0.36 L (CELLAVISION)(BEAKER) (test code = 2832) EOSINOPHILS - ABS 0.74 K/uL 0.04-0.36 H (CELLAVISION)(BEAKER) (test code = 2834) METAMYELOCYTES - ABS 0.30 K/uL 0.00-0.00 H (CELLAVISION)(BEAKER) (test code = 2836) MYELOCYTES-ABS 0.15 K/uL 0.00-0.00 H (CELLAVISION)(BEAKER) (test code = 2837) BANDS - ABS (CELLAVISION)(BEAKER) 0.30 K/uL 0.00-0.80 (test code = 2840) TOTAL COUNTED (BEAKER) (test code 100 = 1351) PLT MORPHOLOGY (BEAKER) (test Normal code = 486) TOXIC GRANULATION (BEAKER) (test Present code = 771) POLYCHROMATOPHILLIC RBCS(BEAKER) 2+ moderate (test code = 478) ANISOCYTOSIS (BEAKER) (test code 1+ few = 961) MICROCYTES (BEAKER) (test code = 1+ few 965) POIKILOCYTES (BEAKER) (test code 3+ many = 966) OVALOCYTES (BEAKER) (test code = 2+ moderate 477) TEAR DROP CELLS (BEAKER) (test 1+ few code = 481) ELIF CELLS (BEAKER) (test code = 2+ moderate 474) ARTIFACT (CELLAVISION)(BEAKER) Present (test code = 3432) PLATELET CONCENTRATION Decreased (CELLAVISION)(BEAKER) (test code = 3438) Orange Picking Supervisor ID - Cindy Gibson comments: Slide comments:CBC W/PLT COUNT & AUTO [id number] 09:40:43 Test Item Value Reference Range Interpretation Comments WHITE BLOOD CELL COUNT (BEAKER) 14.8 K/ L 3.5-10.5 H (test code = 775) RED BLOOD CELL COUNT (BEAKER) 3.07 M/ L 3.93-5.22 L (test code = 761) HEMOGLOBIN (BEAKER) (test code = 9.8 GM/DL 11.2-15.7 L 410) HEMATOCRIT (BEAKER) (test code = 30.0 % 34.1-44.9 L 411) MEAN CORPUSCULAR VOLUME (BEAKER) 97.7 fL 79.4-94.8 H (test code = 753) MEAN CORPUSCULAR HEMOGLOBIN 31.9 pg 25.6-32.2 (BEAKER) (test code = 751) MEAN CORPUSCULAR HEMOGLOBIN CONC 32.7 GM/DL 32.2-35.5 (BEAKER) (test code = 752) RED CELL DISTRIBUTION WIDTH 17.4 % 11.7-14.4 H (BEAKER) (test code = 412) PLATELET COUNT (BEAKER) (test code 69 K/CU MM 150-450 L = 756) MEAN PLATELET VOLUME (BEAKER) 12.4 fL 9.4-12.3 H (test code = 754) NUCLEATED RED BLOOD CELLS (BEAKER) 0 /100 WBC 0-0 (test code = 413) BASIC METABOLIC [id number] 07:22:45 Test Item Value Reference Range Interpretation Comments SODIUM (BEAKER) 141 meq/L 136-145 (test code = 381) POTASSIUM (BEAKER) 3.1 meq/L 3.5-5.1 L (test code = 379) CHLORIDE (BEAKER) 116 meq/L 98-107 H (test code = 382) CO2 (BEAKER) (test 18 meq/L 22-29 L code = 355) BLOOD UREA NITROGEN 22 mg/dL 7-21 H (BEAKER) (test code = 354) CREATININE (BEAKER) 0.86 mg/dL 0.57-1.25 (test code = 358) GLUCOSE RANDOM 120 mg/dL 70-105 H (BEAKER) (test code = 652) CALCIUM (BEAKER) 7.6 mg/dL 8.4-10.2 L (test code = 697) EGFR (BEAKER) (test 67 mL/min/1.73 ESTIMA BARRON GFR IS code = 1092) sq m NOT ACCURATE CREATININE CLEARANCE IN PREDICTING GLOMERULAR FILTRATION RATE . ESTIMATED GFR I S NOT APPLICABLE FOR DIALYSIS PATIEN TS. Orange Picking Supervisor ID - MARLON LSpecimen slightly [id number] 07:16:27 Test Item Value Reference Range Interpretation Comments PHOSPHORUS (BEAKER) (test code = 2.2 mg/dL 2.3-4.7 L 604) Orange Picking Supervisor ID - MARLON LHEPATIC FUNCTION [id number] 07:16:27 Test Item Value Reference Range Interpretation Comments TOTAL PROTEIN (BEAKER) (test code = 5.1 gm/dL 6.0-8.3 L 770) ALBUMIN (BEAKER) (test code = 1145) 2.7 g/dL 3.5-5.0 L BILIRUBIN TOTAL (BEAKER) (test code 3.3 mg/dL 0.2-1.2 H = 377) BILIRUBIN DIRECT (BEAKER) (test 1.3 mg/dL 0.1-0.5 H code = 706) ALKALINE PHOSPHATASE (BEAKER) (test 83 U/L 40-150 code = 346) AST (SGOT) (BEAKER) (test code = 30 U/L 5-34 353) ALT (SGPT) (BEAKER) (test code = 17 U/L 6-55 347) Orange Picking Supervisor ID - MARLON KENTpecimen slightly ictericBLOOD [id number] 07:00:33 Test Item Value Reference Range Interpretation Comments CULTURE (BEAKER) (test No growth in 5 days code = 1095) PROTHROMBIN [id number] 06:15:38 Test Item Value Reference Range Interpretation Comments PROTIME (BEAKER) 25.1 seconds 11.9-14.2 H (test code = 759) INR (BEAKER) (test 2.31 See_Comment [Automat ed message] code = 370) The system [employer] generated this result transmitted ref erence range: <=5.90. The reference range was not used to int erpret this result as normal/abnormal . RECOMMENDED COUMADIN/WARFARIN INR THERAPY RANGESSTANDARD DOSE: 2.0 - 3.0 Includes: PROPHYLAXIS forvenous thrombosis, systemic embolization; TREATMENT for venous thrombosis and/or pulmonary embolus.HIGH RISK: Target INR is 2.5-3.5 for patients with mechanical heart valves.Ova and Parasite [id number] 08:26:13 Test Item Value Reference Range Interpretation Comments O&P Direct Smear (test No ova or parasites No ova or code = 61133-5) seen parasites seen RJEI (test code = REJI) See scanned report Lab Interpretation (test Normal code = 24177-4) [facility]32 Test Item Value Reference Range Interpretation Comments PHOSPHORUS (BEAKER) (test code = 1.5 mg/dL 2.3-4.7 LL 604) Orange Picking Supervisor ID Ajay FRANK WBASIC METABOLIC [id number] 07:09:27 Test Item Value Reference Range Interpretation Comments SODIUM (BEAKER) 142 meq/L 136-145 (test code = 381) POTASSIUM (BEAKER) 3.7 meq/L 3.5-5.1 (test code = 379) CHLORIDE (BEAKER) 119 meq/L 98-107 H (test code = 382) CO2 (BEAKER) (test 17 meq/L 22-29 L code = 355) BLOOD UREA NITROGEN 25 mg/dL 7-21 H (BEAKER) (test code = 354) CREATININE (BEAKER) 0.83 mg/dL 0.57-1.25 (test code = 358) GLUCOSE RANDOM 80 mg/dL 70-105 (BEAKER) (test code = 652) CALCIUM (BEAKER) 8.0 mg/dL 8.4-10.2 L (test code = 697) EGFR (BEAKER) (test 70 mL/min/1.73 ESTIMA BARRON GFR IS code = 1092) sq m NOT ACCURATE CREATININE CLEARANCE IN PREDICTING GLOMERULAR FILTRATION RATE . ESTIMATED GFR I S NOT APPLICABLE FOR DIALYSIS PATIEN TS. Orange Picking Supervisor ID Ajay FRANK WSpecimen slightly ictericPROTHROMBIN TIME/[id number] 06:57:19 Test Item Value Reference Range Interpretation Comments PROTIME (BEAKER) 23.2 seconds 11.9-14.2 H (test code = 759) INR (BEAKER) (test 2.09 See_Comment [Automat ed message] code = 370) The system [employer] generated this result transmitted ref erence range: <=5.90. The reference range was not used to int erpret this result as normal/abnormal . RECOMMENDED COUMADIN/WARFARIN INR THERAPY RANGESSTANDARD DOSE: 2.0 - 3.0 Includes: PROPHYLAXIS forvenous thrombosis, systemic embolization; TREATMENT for venous thrombosis and/or pulmonary embolus.HIGH RISK: Target INR is 2.5-3.5 for patients with mechanical heart valves.(CELLAVISION MANUAL DIFF)2021-09-05 15:15:37 Test Item Value Reference Range Interpretation Comments NEUTROPHILS - REL 90 % (CELLAVISION)(BEAKER) (test code = 2816) LYMPHOCYTES - REL 2 % (CELLAVISION)(BEAKER) (test code = 2817) MONOCYTES - REL 3 % (CELLAVISION)(BEAKER) (test code = 2818) BANDS - REL (CELLAVISION)(BEAKER) 3 % 0-10 (test code = 2826) ATYPICAL LYMPHOCYTES - REL 2 % 0-0 H (CELLAVISION)(BEAKER) (test code = 2829) NEUTROPHILS - ABS 14.04 K/ul 1.56-6.13 H (CELLAVISION)(BEAKER) (test code = 2830) LYMPHOCYTES - ABS 0.31 K/ul 1.18-3.74 L (CELLAVISION)(BEAKER) (test code = 2831) MONOCYTES - ABS 0.47 K/uL 0.24-0.36 H (CELLAVISION)(BEAKER) (test code = 2832) BANDS - ABS (CELLAVISION)(BEAKER) 0.47 K/uL 0.00-0.80 (test code = 2840) ATYPICAL LYMPHOCYTES - ABS 0.31 K/uL 0.00-0.00 H (CELLAVISION)(BEAKER) (test code = 2858) TOTAL COUNTED (BEAKER) (test code 100 = 1351) SMUDGE CELLS (BEAKER) (test code Present = 1371) GIANT PLATELETS (BEAKER) (test Present code = 313) POLYCHROMATOPHILLIC RBCS(BEAKER) 1+ few (test code = 478) ANISOCYTOSIS (BEAKER) (test code 1+ few = 961) POIKILOCYTES (BEAKER) (test code 3+ many = 966) SCHISTOCYTES (BEAKER) (test code 1+ few = 765) SPHEROCYTES (BEAKER) (test code = 1+ few 768) ELLIPTOCYTES (BEAKER) (test code 2+ moderate = 962) OVALOCYTES (BEAKER) (test code = 1+ few 477) TEAR DROP CELLS (BEAKER) (test 1+ few code = 481) ELIF CELLS (BEAKER) (test code = 2+ moderate 474) PLATELET CONCENTRATION Decreased (CELLAVISION)(BEAKER) (test code = 3438) Orange Picking Supervisor ID - nabil Julian comments: Slide comments:[id number] 15:08:54 Test Item Value Reference Range Interpretation Comments PHOSPHORUS (BEAKER) (test code = 1.2 mg/dL 2.3-4.7 LL 604) Orange Picking Supervisor ID - BSBASIC METABOLIC [id number] 15:04:30 Test Item Value Reference Range Interpretation Comments SODIUM (BEAKER) 141 meq/L 136-145 (test code = 381) POTASSIUM (BEAKER) 2.9 meq/L 3.5-5.1 L (test code = 379) CHLORIDE (BEAKER) 116 meq/L 98-107 H (test code = 382) CO2 (BEAKER) (test 19 meq/L 22-29 L code = 355) BLOOD UREA NITROGEN 25 mg/dL 7-21 H (BEAKER) (test code = 354) CREATININE (BEAKER) 0.94 mg/dL 0.57-1.25 (test code = 358) GLUCOSE RANDOM 101 mg/dL 70-105 (BEAKER) (test code = 652) CALCIUM (BEAKER) 7.7 mg/dL 8.4-10.2 L (test code = 697) EGFR (BEAKER) (test 61 mL/min/1.73 ESTIMA BARRON GFR IS code = 1092) sq m NOT ACCURATE CREATININE CLEARANCE IN PREDICTING GLOMERULAR FILTRATION RATE . ESTIMATED GFR I S NOT APPLICABLE FOR DIALYSIS PATIEN TS. [employer] Supervisor ID - BSSpecimen slightly ictericHEPATIC FUNCTION [id number] 15:02:35 Test Item Value Reference Range Interpretation Comments TOTAL PROTEIN (BEAKER) (test code = 4.9 gm/dL 6.0-8.3 L 770) ALBUMIN (BEAKER) (test code = 1145) 3.0 g/dL 3.5-5.0 L BILIRUBIN TOTAL (BEAKER) (test code 2.3 mg/dL 0.2-1.2 H = 377) BILIRUBIN DIRECT (BEAKER) (test 1.0 mg/dL 0.1-0.5 H code = 706) ALKALINE PHOSPHATASE (BEAKER) (test 64 U/L 40-150 code = 346) AST (SGOT) (BEAKER) (test code = 32 U/L 5-34 353) ALT (SGPT) (BEAKER) (test code = 17 U/L 6-55 347) [employer] Supervisor ID - BSSpecimen slightly ictericPROTHROMBIN [id number] 14:50:10 Test Item Value Reference Range Interpretation Comments PROTIME (BEAKER) 24.9 seconds 11.9-14.2 H (test code = 759) INR (BEAKER) (test 2.28 See_Comment [Automat ed message] code = 370) The system [employer] generated this result transmitted ref erence range: <=5.90. The reference range was not used to int erpret this result as normal/abnormal . RECOMMENDED COUMADIN/WARFARIN INR THERAPY RANGESSTANDARD DOSE: 2.0 - 3.0 Includes: PROPHYLAXIS forvenous thrombosis, systemic embolization; TREATMENT for venous thrombosis and/or pulmonary embolus.HIGH RISK: Target INR is 2.5-3.5 for patients with mechanical heart valves.CBC W/PLT COUNT & AUTO DIFFERENTIAL 2021-09-05 14:44:53 Test Item Value Reference Range Interpretation Comments WHITE BLOOD CELL COUNT (BEAKER) 15.6 K/ L 3.5-10.5 H (test code = 775) RED BLOOD CELL COUNT (BEAKER) 2.66 M/ L 3.93-5.22 L (test code = 761) HEMOGLOBIN (BEAKER) (test code = 8.6 GM/DL 11.2-15.7 L 410) HEMATOCRIT (BEAKER) (test code = 26.3 % 34.1-44.9 L 411) MEAN CORPUSCULAR VOLUME (BEAKER) 98.9 fL 79.4-94.8 H (test code = 753) MEAN CORPUSCULAR HEMOGLOBIN 32.3 pg 25.6-32.2 H (BEAKER) (test code = 751) MEAN CORPUSCULAR HEMOGLOBIN CONC 32.7 GM/DL 32.2-35.5 (BEAKER) (test code = 752) RED CELL DISTRIBUTION WIDTH 17.8 % 11.7-14.4 H (BEAKER) (test code = 412) PLATELET COUNT (BEAKER) (test code 77 K/CU MM 150-450 L = 756) MEAN PLATELET VOLUME (BEAKER) 10.3 fL 9.4-12.3 (test code = 754) NUCLEATED RED BLOOD CELLS (BEAKER) 0 /100 WBC 0-0 (test code = 413) Clostridium difficile GDH [id number] 21:23:26 Test Item Value Reference Range Interpretation Comments C. Difficle Toxin Positive Negative A (test code = 4573772859) C. Difficile GDH Positive Negative A Confirms Antigen (test code = Clostri dium [id number]) difficile-assoc ia barron infection.First line therapy - oral Vancomycin . Continue enteri c isolation until 72 hours after treatment is discontinued an d symptoms have resolved. REJI (test code = Testing performed REJI) by [employer] Rapid Cassette Assay. For GDH, published sensitivity of the assay is 98.7% compared to cytotoxicity testing. For Toxin AB, published sensitivity is 87.8% and specificity 99.4% compared to cytotoxicity testing.Verificati on of kit performance was done by the [facility] prior to clinical use. Lab Interpretation Abnormal (test code = 35922-5) [facility]. DIFFICILE GDH [id number] 21:23:26 Test Item Value Reference Range Interpretation Comments CDT TOXIN (test code Positive Negative A = [id number]) CDT GDH ANTIGEN Positive Negative A Confirms Maria Esther stridium (test code = difficile-assoc iated [id number]) infection.First line therapy - oral Vancomycin. Co ntinue enteric isolati on until 72 hours after treatment is discontinued and symptoms have r esolved. Testing performed by [employer] Rapid Cassette Assay. For GDH, published sensitivity of the assay is 98.7% compared to cytotoxicity testing. For Toxin AB, published sensitivity is 87.8% and specificity 99.4% compared to cytotoxicity testing.Verification of kit performance was done by the [facility] Microbiology Lab prior to clinical use.CT, CHEST, WITH [id number] 10:14:00Unlisted Reason for Exam - Click Yes and Enter Reason Below->No [facility] : 1960 Sex: FFINAL REPORT CT Chest, abdomen, and pelvis with contrast History:Pneumonia, Crohn's exacerbation Comparison:none Technique: serial axial imaging was performed following up to 100cc of non ionic iodinated intravenous contrast as per departmental protocol. Multiplanar images are reconstructed and reviewed when indicated. This CT examination is performed using one or more of the following dose reduction techniques: Automated exposure control, adjustment of the mA and /or kVaccording to patient size, and/or use of iterative reconstruction technique. Findings:No mediastinal or hilar lymphadenopathy. Normal size heart. No pericardial effusion. No thoracic aortic aneurysm or dissection. No central pulmonary arterial filling defect. Patent central airways. No pleural effusion or pneumothorax. Significant patient respiratory motion limits evaluation of the pulmonary parenchyma. The lungs appear grossly clear. Unremarkable appearance of the pancreas. The spleen appears borderline enlarged, measuring 13 cm in craniocaudal dimension. No focal splenic abnormality. Liver appears cirrhotic. No focal hepatic lesion is visualized. A patent right portal-right hepaticTIPS shunt is noted. Central portal veins appear patent. Main portal vein appears enlarged, measuring 16 mm in diameter. The gallbladder appears absent. Simple appearing left renal cyst measures 4.8 cm in size. Kidneys, ureters, and bladder are otherwise unremarkable. . Moderate diffuse colonic thickening and hyperenhancement. No small or large bowel obstruction is seen. No extraluminal air or pneumatosis. No findings to indicate acute appendicitis. Small volume ascites. No lymphadenopathy is id entified. No abdominal aortic aneurysm. Previous ventral hernia repair, which appears intact. No aggressive osseous lesion. Impression: 1. Technically limited study due to significant patient respiratory motion.2. No definite acute findings in the chest.3. Moderate diffuse colonic thickening, consistent with kim colitis. No evidence of bowel perforation or abscess.4. Cirrhosis with patent TIPS shunt. Mildly prominent spleen. Small volume ascites. Signed: Quentin Sims [facility] Verified Date/Time: 09/04/2021 10:14:08 CT, ABDOMEN 2021-09-04 10:14:00Unlisted Reason for Exam - Click Yes and Enter Reason Below- >No Is this for enterography?->YesWill this procedure require oral contrast?->[facility] : 1960 Sex: FFINAL REPORT CT Chest, abdomen, and pelvis with contrast History:Pneumonia, Crohn's exacerbation Comparison:none Technique: serial axial imaging was performed following up to 100cc of non ionic iodinated intravenous contrast as per departmental protocol. Multiplanar images are reconstructed and reviewed when indicated. This CT examination is performed using one or more of the following dose reduction techniques: Automated exposure control, adjustment of the mA and /or kVaccording to patient size, and/or use of iterative reconstruction technique. Findings:No mediastinal or hilar lymphadenopathy. Normal size heart. No pericardial effusion. No thoracic aortic aneurysm or dissection. No central pulmonary arterial filling defect. Patent central airways. No pleural effusion or pneumothorax. Significant patient respiratory motion limits evaluation of the pulmonary parenchyma. The lungs appear grossly clear. Unremarkable appearance of the pancreas. The spleen appears borderline enlarged, measuring 13 cm in craniocaudal dimension. No focal splenic abnormality. Liver appears cirrhotic. No focal hepatic lesion is visualized. A patent right portal-right hepaticTIPS shunt is noted. Central portal veins appear patent. Main portal vein appears enlarged, measuring 16 mm in diameter. The gallbladder appears absent. Simple appearing left renal cyst measures 4.8 cm in size. Kidneys, ureters, and bladder are otherwise unremarkable. . Moderate diffuse colonic thickening and hyperenhancement. No small or large bowel obstruction is seen. No extraluminal air or pneumatosis. No findings to indicate acute appendicitis. Small volume ascites. No lymphadenopathy is id entified. No abdominal aortic aneurysm. Previous ventral hernia repair, which appears intact. No aggressive osseous lesion. Impression: 1. Technically limited study due to significant patient respiratory motion.2. No definite acute findings in the chest.3. Moderate diffuse colonic thickening, consistent with kim colitis. No evidence of bowel perforation or abscess.4. Cirrhosis with patent TIPS shunt. Mildly prominent spleen. Small volume ascites. Signed: Quentin Sims [facility] Verified Date/Time: 09/04/2021 10:14:08 (CELLAVISION MANUAL DIFF)2021-09-04 07:25:33 Test Item Value Reference Range Interpretation Comments NEUTROPHILS - REL 94 % (CELLAVISION)(BEAKER) (test code = 2816) LYMPHOCYTES - REL 2 % (CELLAVISION)(BEAKER) (test code = 2817) MONOCYTES - REL 1 % (CELLAVISION)(BEAKER) (test code = 2818) BANDS - REL (CELLAVISION)(BEAKER) 3 % 0-10 (test code = 2826) NEUTROPHILS - ABS 14.57 K/ul 1.56-6.13 H (CELLAVISION)(BEAKER) (test code = 2830) LYMPHOCYTES - ABS 0.31 K/ul 1.18-3.74 L (CELLAVISION)(BEAKER) (test code = 2831) MONOCYTES - ABS 0.16 K/uL 0.24-0.36 L (CELLAVISION)(BEAKER) (test code = 2832) BANDS - ABS (CELLAVISION)(BEAKER) 0.47 K/uL 0.00-0.80 (test code = 2840) TOTAL COUNTED (BEAKER) (test code 100 = 1351) WBC MORPHOLOGY (BEAKER) (test code Normal = 487) PLT MORPHOLOGY (BEAKER) (test code Normal = 486) POLYCHROMATOPHILLIC RBCS(BEAKER) 1+ few (test code = 478) ANISOCYTOSIS (BEAKER) (test code = 1+ few 961) MACROCYTES (BEAKER) (test code = 1+ few 964) POIKILOCYTES (BEAKER) (test code = 3+ many 966) ELLIPTOCYTES (BEAKER) (test code = 1+ few 962) OVALOCYTES (BEAKER) (test code = 1+ few 477) ARTIFACT (CELLAVISION)(BEAKER) Present (test code = 3432) PLATELET CONCENTRATION Decreased (CELLAVISION)(BEAKER) (test code = 3438) Orange Picking Supervisor ID - michaela Cutler comments: Slide comments:CBC W/PLT COUNT & AUTO [id number] 07:25:32 Test Item Value Reference Range Interpretation Comments WHITE BLOOD CELL COUNT (BEAKER) 15.5 K/ L 3.5-10.5 H (test code = 775) RED BLOOD CELL COUNT (BEAKER) 2.43 M/ L 3.93-5.22 L (test code = 761) HEMOGLOBIN (BEAKER) (test code = 8.0 GM/DL 11.2-15.7 L 410) HEMATOCRIT (BEAKER) (test code = 24.3 % 34.1-44.9 L 411) MEAN CORPUSCULAR VOLUME (BEAKER) 100.0 fL 79.4-94.8 H (test code = 753) MEAN CORPUSCULAR HEMOGLOBIN 32.9 pg 25.6-32.2 H (BEAKER) (test code = 751) MEAN CORPUSCULAR HEMOGLOBIN CONC 32.9 GM/DL 32.2-35.5 (BEAKER) (test code = 752) RED CELL DISTRIBUTION WIDTH 17.8 % 11.7-14.4 H (BEAKER) (test code = 412) PLATELET COUNT (BEAKER) (test code 71 K/CU MM 150-450 L = 756) MEAN PLATELET VOLUME (BEAKER) 12.5 fL 9.4-12.3 H (test code = 754) NUCLEATED RED BLOOD CELLS (BEAKER) 0 /100 WBC 0-0 (test code = 413) [id number] 06:26:19 Test Item Value Reference Range Interpretation Comments PHOSPHORUS (BEAKER) (test code = 1.5 mg/dL 2.3-4.7 LL 604) Orange Picking Supervisor GINA FRANK WComprehensive metabolic [id number] 06:18:30 Test Item Value Reference Range Interpretation Comments Protein, Total (test 4.7 See_Comment L [Autom ated code = 2885-2) message] The system which generated this result transmitted reference range : 6.0 - 8.3 gm/dL . The reference range was not used to interpr et this result as normal/abnormal . Albumin (test code = 2.7 g/dL 3.5-5.0 L 94675-1) Alkaline Phosphatase 85 U/L 40-150 (test code = 6768-6) Total Bilirubin (test 2.7 mg/dL 0.2-1.2 H code = 1975-2) Sodium (test code = 134 meq/L 136-145 L 2951-2) Potassium (test code 3.6 meq/L 3.5-5.1 = 2823-3) Chloride (test code = 113 meq/L 98-107 H 2075-0) CO2 (test code = 17 meq/L 22-29 L 2028-9) BUN (test code = 27 mg/dL 7-21 H 3094-0) Creatinine (test code 1.06 mg/dL 0.57-1.25 = 2160-0) Glucose (test code = 118 mg/dL 70-105 H 2345-7) Calcium (test code = 7.3 mg/dL 8.4-10.2 L 46045-9) AST (test code = 28 U/L 5-34 1920-8) ALT (test code = 14 U/L 6-55 1742-6) EGFR (test code = 53 mL/min/1.73 [place] [address]-5) NOT ACCURATE CREATININE CLEARANCE IN PREDICTING GLOMERULAR FILTRATION RATE . ESTIMATED GFR I S NOT APPLICABLE FOR DIALYSIS PATIENTS. REJI (test code = REJI) Orange Picking Supervisor GINA FRANK WSpecimen slightly icteric Lab Interpretation Abnormal (test code = 93841-9) [facility] [id number] 06:18:30 Test Item Value Reference Range Interpretation Comments TOTAL PROTEIN 4.7 gm/dL 6.0-8.3 L (BEAKER) (test code = 770) ALBUMIN (BEAKER) 2.7 g/dL 3.5-5.0 L (test code = 1145) ALKALINE PHOSPHATASE 85 U/L 40-150 (BEAKER) (test code = 346) BILIRUBIN TOTAL 2.7 mg/dL 0.2-1.2 H (BEAKER) (test code = 377) SODIUM (BEAKER) (test 134 meq/L 136-145 L code = 381) POTASSIUM (BEAKER) 3.6 meq/L 3.5-5.1 (test code = 379) CHLORIDE (BEAKER) 113 meq/L 98-107 H (test code = 382) CO2 (BEAKER) (test 17 meq/L 22-29 L code = 355) BLOOD UREA NITROGEN 27 mg/dL 7-21 H (BEAKER) (test code = 354) CREATININE (BEAKER) 1.06 mg/dL 0.57-1.25 (test code = 358) GLUCOSE RANDOM 118 mg/dL 70-105 H (BEAKER) (test code = 652) CALCIUM (BEAKER) 7.3 mg/dL 8.4-10.2 L (test code = 697) AST (SGOT) (BEAKER) 28 U/L 5-34 (test code = 353) ALT (SGPT) (BEAKER) 14 U/L 6-55 (test code = 347) EGFR (BEAKER) (test 53 mL/min/1.73 ESTIMA BARRON GFR IS code = 1092) sq m NOT ACCURATE CREATININE CLEARANCE IN PREDICTING GLOMERULAR FILTRATION RATE . ESTIMATED GFR I S NOT APPLICABLE FOR DIALYSIS PATIEN TS. Orange Picking Supervisor ID - ZAC WSpecimen slightly [id number] 06:13:05 Test Item Value Reference Range Interpretation Comments MAGNESIUM (BEAKER) (test code = 2.3 mg/dL 1.6-2.6 627) Orange Picking Supervisor ID Ajay FRANK W(CELLAVISION MANUAL DIFF)2021-09-03 14:33:56 Test Item Value Reference Range Interpretation Comments NEUTROPHILS - REL 99 % (CELLAVISION)(BEAKER) (test code = 2816) MONOCYTES - REL 1 % (CELLAVISION)(BEAKER) (test code = 2818) NEUTROPHILS - ABS 28.41 K/ul 1.56-6.13 H (CELLAVISION)(BEAKER) (test code = 2830) MONOCYTES - ABS 0.29 K/uL 0.24-0.36 (CELLAVISION)(BEAKER) (test code = 2832) TOTAL COUNTED (BEAKER) (test code 100 = 1351) PLT MORPHOLOGY (BEAKER) (test Normal code = 486) DOHLE BODIES (BEAKER) (test code Present = 359) TOXIC GRANULATION (BEAKER) (test Present code = 771) POLYCHROMATOPHILLIC RBCS(BEAKER) 2+ moderate (test code = 478) ANISOCYTOSIS (BEAKER) (test code 2+ moderate = 961) MICROCYTES (BEAKER) (test code = 1+ few 965) MACROCYTES (BEAKER) (test code = 1+ few 964) POIKILOCYTES (BEAKER) (test code 3+ many = 966) SPHEROCYTES (BEAKER) (test code = 1+ few 768) OVALOCYTES (BEAKER) (test code = 1+ few 477) ACANTHOCYTES (BEAKER) (test code 3+ many = 471) PLATELET CONCENTRATION Decreased (CELLAVISION)(BEAKER) (test code = 3438) Orange Picking Supervisor ID - Claudine Rios comments: Slide comments:CBC W/PLT COUNT & AUTO [id number] 14:33:55 Test Item Value Reference Range Interpretation Comments WHITE BLOOD CELL COUNT (BEAKER) 28.7 K/ L 3.5-10.5 H (test code = 775) RED BLOOD CELL COUNT (BEAKER) 3.25 M/ L 3.93-5.22 L (test code = 761) HEMOGLOBIN (BEAKER) (test code = 10.5 GM/DL 11.2-15.7 L 410) HEMATOCRIT (BEAKER) (test code = 33.5 % 34.1-44.9 L 411) MEAN CORPUSCULAR VOLUME (BEAKER) 103.1 fL 79.4-94.8 H (test code = 753) MEAN CORPUSCULAR HEMOGLOBIN 32.3 pg 25.6-32.2 H (BEAKER) (test code = 751) MEAN CORPUSCULAR HEMOGLOBIN CONC 31.3 GM/DL 32.2-35.5 L (BEAKER) (test code = 752) RED CELL DISTRIBUTION WIDTH 18.5 % 11.7-14.4 H (BEAKER) (test code = 412) PLATELET COUNT (BEAKER) (test code 97 K/CU MM 150-450 L = 756) MEAN PLATELET VOLUME (BEAKER) 11.2 fL 9.4-12.3 (test code = 754) NUCLEATED RED BLOOD CELLS (BEAKER) 0 /100 WBC 0-0 (test code = 413) Hepatitis B surface [id number] 13:30:11 Test Item Value Reference Range Interpretation Comments Hep B S Ab (test code <8.0 See_Comment [Auto mated = 01351-6) message] The system which generated this result transmit barron reference range : <8.0 mIU/mL. e reference range was not used to interpret this result as normal/abnormal . REJI (test code = REJI) Orange Picking Supervisor ID - ELODIARADHA L Lab Interpretation Normal (test code = 26363-4) [facility] [id number] 13:30:11 Test Item Value Reference Range Interpretation Comments HEPATITIS B SURFACE ANTIBODY < mIU/mL <8.0 (BEAKER) (test code = 647) Orange Picking Supervisor ID Ajay ARREOLAepatitis A antibody, [id number] 13:23:53 Test Item Value Reference Range Interpretation Comments Hep A IgG (test code = Nonreactive Nonreactive 56873-3) REJI (test code = REJI) Orange Picking Supervisor ID - MARLON L Lab Interpretation (test Normal code = 08261-9) [facility], [id number] 13:23:53 Test Item Value Reference Range Interpretation Comments HEPATITIS A IGG ANTIBODY (BEAKER) Nonreactive Nonreactive (test code = 2797) Orange Picking Supervisor ID Ajay ARREOLAepatitis B core antibody, [id number] 13:23:52 Test Item Value Reference Range Interpretation Comments Hep B Core Total Ab Nonreactive Nonreactive (test code = 46757-9) REJI (test code = REJI) Orange Picking Supervisor ID - PIRADHA L Lab Interpretation (test Normal code = 07778-1) [facility] C [id number] 13:23:52 Test Item Value Reference Range Interpretation Comments Hepatitis C Ab (test Nonreactive Nonreactive code = 52026-6) REJI (test code = REJI) Orange Picking Supervisor ID - MARLON L Lab Interpretation (test Normal code = 66757-3) [facility] C [id number] 13:23:52 Test Item Value Reference Range Interpretation Comments HEPATITIS C ANTIBODY (BEAKER) Nonreactive Nonreactive (test code = 367) Orange Picking Supervisor ID - MARLON LHEPATITIS B CORE ANTIBODY, [id number] 13:23:52 Test Item Value Reference Range Interpretation Comments HEPATITIS B CORE TOTAL ANTIBODY Nonreactive Nonreactive (BEAKER) (test code = 497) Orange Picking Supervisor ID Ajay MASON LHepatitis B surface [id number] 13:23:51 Test Item Value Reference Range Interpretation Comments HBsAg Screen (test code Nonreactive Nonreactive = 5195-3) REJI (test code = REJI) Specimen is considered negative for HBsAg. Lab Interpretation (test Normal code = 66539-1) [facility] B SURFACE [id number] 13:23:51 Test Item Value Reference Range Interpretation Comments HEPATITIS B SURFACE ANTIGEN (2) Nonreactive Nonreactive (BEAKER) (test code = 2585) Specimen is considered negative for HBsAg.COMPREHENSIVE METABOLIC PANEL 2021-09-03 13:02:34 Test Item Value Reference Range Interpretation Comments TOTAL PROTEIN 5.0 gm/dL 6.0-8.3 L (BEAKER) (test code = 770) ALBUMIN (BEAKER) 2.4 g/dL 3.5-5.0 L (test code = 1145) ALKALINE PHOSPHATASE 99 U/L 40-150 (BEAKER) (test code = 346) BILIRUBIN TOTAL 3.2 mg/dL 0.2-1.2 H (BEAKER) (test code = 377) SODIUM (BEAKER) (test 136 meq/L 136-145 code = 381) POTASSIUM (BEAKER) 3.2 meq/L 3.5-5.1 L (test code = 379) CHLORIDE (BEAKER) 113 meq/L 98-107 H (test code = 382) CO2 (BEAKER) (test 13 meq/L 22-29 L code = 355) BLOOD UREA NITROGEN 29 mg/dL 7-21 H (BEAKER) (test code = 354) CREATININE (BEAKER) 1.37 mg/dL 0.57-1.25 H (test code = 358) GLUCOSE RANDOM 121 mg/dL 70-105 H (BEAKER) (test code = 652) CALCIUM (BEAKER) 7.4 mg/dL 8.4-10.2 L (test code = 697) AST (SGOT) (BEAKER) 21 U/L 5-34 (test code = 353) ALT (SGPT) (BEAKER) 16 U/L 6-55 (test code = 347) EGFR (BEAKER) (test 39 mL/min/1.73 ESTIMA BARRON GFR IS code = 1092) sq m NOT ACCURATE CREATININE CLEARANCE IN PREDICTING GLOMERULAR FILTRATION RATE . ESTIMATED GFR I S NOT APPLICABLE FOR DIALYSIS PATIEN TS. Orange Picking Supervisor ID - MARLON LSpecimen slightly [id number] 12:58:51 Test Item Value Reference Range Interpretation Comments MAGNESIUM (BEAKER) (test code = 2.1 mg/dL 1.6-2.6 627) Orange Picking Supervisor ID - MARLON [id number] 12:58:51 Test Item Value Reference Range Interpretation Comments PHOSPHORUS (BEAKER) (test code = 2.3 mg/dL 2.3-4.7 604) Orange Picking Supervisor ID - MARLON LPROTHROMBIN TIME/[id number] 12:56:09 Test Item Value Reference Range Interpretation Comments PROTIME (BEAKER) 23.4 seconds 11.9-14.2 H (test code = 759) INR (BEAKER) (test 2.10 See_Comment [Automat ed message] code = 370) The system [employer] generated this result transmitted ref erence range: <=5.90. The reference range was not used to int erpret this result as normal/abnormal . RECOMMENDED COUMADIN/WARFARIN INR THERAPY RANGESSTANDARD DOSE: 2.0 - 3.0 Includes: PROPHYLAXIS forvenous thrombosis, systemic embolization; TREATMENT for venous thrombosis and/or pulmonary embolus.HIGH RISK: Target INR is 2.5-3.5 for patients with mechanical heart valves.Urine [id number] 12:15:06 Test Item Value Reference Range Interpretation Comments Result (test code = 6463-4) No growth [facility] -[facility] [id number] 12:43:22 Test Item Value Reference Range Interpretation Comments CAMPYLOBACTER (PCR) Not detected Not detected (test code = 32881-5) PLESIOMONAS SHIGELLOIDES Not detected Not detected (PCR) (test code = 04268-2) SALMONELLA (PCR) (test Not detected Not detected code = 92057-7) YERSINIA ENTEROCOLITICA Not detected Not detected (PCR) (test code = 28411-2) VIBRIO CHOLERAE (PCR) Not detected Not detected (test code = 31546-3) ENTEROAGGREGATIVE E. Not detected Not detected COLI (EAEC) BY PCR (test code = 01123-0) ENTEROPATHOGENIC E. COLI Not detected Not detected (EPEC) BY PCR (test code = 94064-6) ENTEROTOXIGENIC E. COLI Not detected Not detected (ETEC) LT/ST BY PCR (test code = 44543-4) SHIGA-LIKE Not detected Not detected TOXIN-PRODUCING E. COLI (STEC) STX1/STX2 (test code = 66500-3) E. COLI O157 (PCR) (test code = 28394-9) SHIGELLA/ENTEROINVASIVE Not detected Not detected E. COLI (EIEC) BY PCR (test code = 16846-7) CRYPTOSPORIDIUM (PCR) Not detected Not detected (test code = 78522-4) CYCLOSPORA CAYETANENSIS Not detected Not detected (PCR) (test code = 39875-8) ENTAMOEBA HISTOLYTICA Not detected Not detected (PCR) (test code = 33405-9) GIARDIA LAMBLIA (PCR) Not detected Not detected (test code = 13325-8) ADENOVIRUS F 40/41 (PCR) Not detected Not detected (test code = 91365-5) ASTROVIRUS (PCR) (test Not detected Not detected code = 70221-9) NOROVIRUS GI/GII (PCR) Not detected Not detected (test code = 81939-9) ROTAVIRUS A (PCR) (test Not detected Not detected code = 39378-0) SAPOVIRUS (I, II, IV, V) Not detected Not detected BY PCR (test code = 54528-0) VIBRIO Not detected Not detected (PARAHAEMOLYTICUS, VULNIFICUS) (test code = 94969-0) REJI (test code = REJI) Other viruses, parasites and bacteria not targeted by this PCR panel cannot be excluded; therefore clinical correlation and follow up of serology, culture results, and other molecular studies is required. The results are not intended to be used as the sole means for clinical diagnosis or patient management decisions. This sample was tested at the [facility] Molecular Diagnostics Laboratory using the MEDEM Gastrointestinal Panel. It is FDA cleared and has been verified and approved by the [facility] Molecular Diagnostics Laboratory for clinical use. This laboratory is CLIA-certified and [employer] ([employer])-accredited to perform high complexity testing. [facility] BY [id number] 12:43:22 Test Item Value Reference Range Interpretation Comments CAMPYLOBACTER (PCR) (test code = Not detected Not detected 20160214) PLESIOMONAS SHIGELLOIDES (PCR) Not detected Not detected (test code = 20160218) SALMONELLA (PCR) (test code = Not detected Not detected ) YERSINIA ENTEROCOLITICA (PCR) Not detected Not detected (test code = 6626504) VIBRIO CHOLERAE (PCR) (test code Not detected Not detected = 20160313) ENTEROAGGREGATIVE E. COLI (EAEC) Not detected Not detected BY PCR (test code = 2585407) ENTEROPATHOGENIC E. COLI (EPEC) Not detected Not detected BY PCR (test code = 8604950) ENTEROTOXIGENIC E. COLI (ETEC) Not detected Not detected LT/ST BY PCR (test code = 4932787) SHIGA-LIKE TOXIN-PRODUCING E. Not detected Not detected COLI (STEC) STX1/STX2 (test code = 0741656) E. COLI O157 (PCR) (test code = 7844242) SHIGELLA/ENTEROINVASIVE E. COLI Not detected Not detected (EIEC) BY PCR (test code = 5030666) CRYPTOSPORIDIUM (PCR) (test code Not detected Not detected = 20160320) CYCLOSPORA CAYETANENSIS (PCR) Not detected Not detected (test code = 6917368) ENTAMOEBA HISTOLYTICA (PCR) Not detected Not detected (test code = 6369264) GIARDIA LAMBLIA (PCR) (test code Not detected Not detected = 20160413) ADENOVIRUS F 40/41 (PCR) (test Not detected Not detected code = 9187766) ASTROVIRUS (PCR) (test code = Not detected Not detected 20160415) NOROVIRUS GI/GII (PCR) (test Not detected Not detected code = 20160416) ROTAVIRUS A (PCR) (test code = Not detected Not detected 20160417) SAPOVIRUS (I, II, IV, V) BY PCR Not detected Not detected (test code = 2040289) VIBRIO (PARAHAEMOLYTICUS, Not detected Not detected VULNIFICUS) (test code = 8599465) Other viruses, parasites and bacteria not targeted by this PCR panel cannot be excluded; therefore clinical correlation and follow up of serology, culture results, and other molecular studies is required. The results are not intended to be used as the sole means for clinical diagnosis or patient management decisions. This sample was tested at the [facility] Molecular Diagnostics Laboratory using the MEDEM Gastrointestinal Panel. It is FDA cleared and has been verified and approved by the [facility] Molecular Diagnostics Laboratory for clinical use. This laboratory is CLIA-certified and [employer] ofAmerican [employer]ologists (CAP)-accredited to perform high complexity testing.(CELLAVISION MANUAL DIFF)2021-09-02 08:49:58 Test Item Value Reference Range Interpretation Comments NEUTROPHILS - REL 81 % (CELLAVISION)(BEAKER) (test code = 2816) LYMPHOCYTES - REL 1 % (CELLAVISION)(BEAKER) (test code = 2817) BANDS - REL (CELLAVISION)(BEAKER) 18 % 0-10 H (test code = 2826) NEUTROPHILS - ABS 17.42 K/ul 1.56-6.13 H (CELLAVISION)(BEAKER) (test code = 2830) LYMPHOCYTES - ABS 0.22 K/ul 1.18-3.74 L (CELLAVISION)(BEAKER) (test code = 2831) BANDS - ABS (CELLAVISION)(BEAKER) 3.87 K/uL 0.00-0.80 H (test code = 2840) TOTAL COUNTED (BEAKER) (test code 100 = 1351) WBC MORPHOLOGY (BEAKER) (test code Normal = 487) PLT MORPHOLOGY (BEAKER) (test code Normal = 486) ANISOCYTOSIS (BEAKER) (test code = 1+ few 961) MACROCYTES (BEAKER) (test code = 1+ few 964) POIKILOCYTES (BEAKER) (test code = 3+ many 966) SCHISTOCYTES (BEAKER) (test code = 1+ few 765) SPHEROCYTES (BEAKER) (test code = 1+ few 768) OVALOCYTES (BEAKER) (test code = 1+ few 477) ELIF CELLS (BEAKER) (test code = 3+ many 474) ARTIFACT (CELLAVISION)(BEAKER) Present (test code = 3432) PLATELET CONCENTRATION Decreased (CELLAVISION)(BEAKER) (test code = 3438) Orange Picking Supervisor ID - Phyllis comments: Slide comments:CBC W/PLT COUNT & AUTO [id number] 08:49:57 Test Item Value Reference Range Interpretation Comments WHITE BLOOD CELL COUNT (BEAKER) 21.5 K/ L 3.5-10.5 H (test code = 775) RED BLOOD CELL COUNT (BEAKER) 3.02 M/ L 3.93-5.22 L (test code = 761) HEMOGLOBIN (BEAKER) (test code = 9.7 GM/DL 11.2-15.7 L 410) HEMATOCRIT (BEAKER) (test code = 30.9 % 34.1-44.9 L 411) MEAN CORPUSCULAR VOLUME (BEAKER) 102.3 fL 79.4-94.8 H (test code = 753) MEAN CORPUSCULAR HEMOGLOBIN 32.1 pg 25.6-32.2 (BEAKER) (test code = 751) MEAN CORPUSCULAR HEMOGLOBIN CONC 31.4 GM/DL 32.2-35.5 L (BEAKER) (test code = 752) RED CELL DISTRIBUTION WIDTH 17.4 % 11.7-14.4 H (BEAKER) (test code = 412) PLATELET COUNT (BEAKER) (test code 83 K/CU MM 150-450 L = 756) MEAN PLATELET VOLUME (BEAKER) 11.5 fL 9.4-12.3 (test code = 754) NUCLEATED RED BLOOD CELLS (BEAKER) 0 /100 WBC 0-0 (test code = 413) Vitamin B12 and [id number] 07:20:11 Test Item Value Reference Range Interpretation Comments Vitamin B12 (test 1116 pg/mL 213-816 H code = 2132-9) Folate (test code = 3.50 ng/mL See_Comment L [Automa barron 2284-8) message] The system which generated this result transmit barron reference range : >=7.00. The reference range was not used to interpret this result as normal/abnormal . REJI (test code = REJI) Orange Picking Supervisor ID - SHAQUILLE Reynolds Lab Interpretation Abnormal (test code = 46875-1) [facility] [id number] 07:20:11 Test Item Value Reference Range Interpretation Comments VITAMIN B12 (BEAKER) 1116 pg/mL 213-816 H (test code = 774) FOLATE (BEAKER) 3.50 ng/mL See_Comment L [Automated message] (test code = 362) The system which generated this result transmitted ref erence range: >=7.00. The reference range was not used to interpr et this result as normal/abnormal . Orange Picking Supervisor ID - SHAQUILLE OMPREHENSIVE METABOLIC [id number] 06:57:06 Test Item Value Reference Range Interpretation Comments TOTAL PROTEIN 4.8 gm/dL 6.0-8.3 L (BEAKER) (test code = 770) ALBUMIN (BEAKER) 2.4 g/dL 3.5-5.0 L (test code = 1145) ALKALINE PHOSPHATASE 72 U/L 40-150 (BEAKER) (test code = 346) BILIRUBIN TOTAL 3.3 mg/dL 0.2-1.2 H (BEAKER) (test code = 377) SODIUM (BEAKER) (test 139 meq/L 136-145 code = 381) POTASSIUM (BEAKER) 3.1 meq/L 3.5-5.1 L (test code = 379) CHLORIDE (BEAKER) 116 meq/L 98-107 H (test code = 382) CO2 (BEAKER) (test 16 meq/L 22-29 L code = 355) BLOOD UREA NITROGEN 15 mg/dL 7-21 (BEAKER) (test code = 354) CREATININE (BEAKER) 1.21 mg/dL 0.57-1.25 (test code = 358) GLUCOSE RANDOM 143 mg/dL 70-105 H (BEAKER) (test code = 652) CALCIUM (BEAKER) 7.4 mg/dL 8.4-10.2 L (test code = 697) AST (SGOT) (BEAKER) 21 U/L 5-34 (test code = 353) ALT (SGPT) (BEAKER) 16 U/L 6-55 (test code = 347) EGFR (BEAKER) (test 45 mL/min/1.73 ESTIMA BARRON GFR IS code = 1092) sq m NOT ACCURATE CREATININE CLEARANCE IN PREDICTING GLOMERULAR FILTRATION RATE . ESTIMATED GFR I S NOT APPLICABLE FOR DIALYSIS PATIEN TS. Orange Picking Supervisor ID - SHAQUILLE MSpecimen slightly ictericC-Reactive [id number] 06:55:26 Test Item Value Reference Range Interpretation Comments CRP (test code = 676) 4.64 mg/dL 0.00-0.50 H REJI (test code = REJI) Orange Picking Supervisor ID Ajay CORBIN M Lab Interpretation (test Abnormal code = 20096-0) [facility] 06:55:26 Test Item Value Reference Range Interpretation Comments PHOSPHORUS (BEAKER) (test code = 1.8 mg/dL 2.3-4.7 L 604) Orange Picking Supervisor ID - SHAQUILLE MC-REACTIVE SDVDBLZ0428-97-49 06:55:26 Test Item Value Reference Range Interpretation Comments C-REACTIVE PROTEIN (BEAKER) (test 4.64 mg/dL 0.00-0.50 H code = 676) Orange Picking Supervisor ID - SHAQUILLE LOVNVMXOVT3272-40-35 06:55:25 Test Item Value Reference Range Interpretation Comments MAGNESIUM (BEAKER) (test code = 2.3 mg/dL 1.6-2.6 627) Orange Picking Supervisor ID Ajay CORBIN Corina, TIBC, % sat. (without ferritin)2021-09-02 06:44:00 Test Item Value Reference Range Interpretation Comments Iron (test code = 2498-4) 28.0 ug/dL 40.0-160.0 L TIBC (test code = 2500-7) 243 ug/dL 250-450 L Iron % Saturation (test 12 % 20-55 L code = 2502-3) REJI (test code = REJI) Orange Picking Supervisor ID Ajay CORBIN M Lab Interpretation (test Abnormal code = 94988-9) [facility], [facility]BC, % SAT. (WITHOUT FERRITIN)2021-09-02 06:44:00 Test Item Value Reference Range Interpretation Comments IRON (BEAKER) (test code = 547) 28.0 ug/dL 40.0-160.0 L TOTAL IRON BINDING CAPACITY 243 ug/dL 250-450 L (BEAKER) (test code = 769) IRON % SATURATION (2) (BEAKER) 12 % 20-55 L (test code = 2590) Orange Picking Supervisor ID - SHAQUILLE MCT, BRAIN, WITHOUT [id number] 03:54:00Unlisted Reason for Exam - Click Yes and Enter Reason Below->No [facility] 1960 Sex: FFINAL REPORT EXAM: CT, BRAIN, WITHOUT CONTRAST INDICATION: Altered mental status TECHNIQUE: CT images from skull base to vertex without IV contrast. This exam was performed according to the departmental dose optimization program which includes automated exposure control, adjustment of the mA and/or kV according to the patient size, and/or use of an iterative reconstruction technique. COMPARISON: None. FINDINGS: Parenchyma: No evidence of acute infarction. No hemorrhage. [place] or mass effect. Extra-axial Collection: None Ventricular System: Normal Osseous Structures: No acute osseous abnormality. Included Orbits: Normal Paranasal Sinuses: Predominantly clear Tympanomastoid Cavities: Normal Other: None IMPRESSION:No acute abnormality on CT head without contrast. If there is persistent clinical concern for intracranial pathology, MR examination is recommended forfurther characterization. Signed: Mercy Mccallum [facility]ITALeport Verified Date/Time: 09/02/2021 03:54:37 U/S, ABDOMINAL, [id number] 03:38:00Abdomen limited area? Add comment if clarification is needed.->Right upper quadrantReason for exam:->evaluate biliary tree/liver [facility] : 1960 Sex: FFINAL REPORT INDICATION: evaluate biliary tree/liver COMPARISON: None. TECHNIQUE: Real-time transabdominal gomez scale and color Doppler ultrasound of the abdomen. FINDINGS: Examination extremely limited by poor acoustic windowing and patient inability to tolerate.Liver: Size: 11.4cm. Echogenicity: Increased Masses/lesions: None. Surface Nodularity: None. Intrahepatic bile ducts: Normal. MPV: 0.9cm. Gallbladder: Surgically absent Pancreas: Head and uncinate process: Not well-seen secondary to poor acoustic windowing. Body and tail:Not well-seen. Ascites: None. Regional Vasculature: The visible abdominal aorta, IVC and hepatic veins are patent. The aorta measures 2.0 cm proximally, 1.9 cm in the midportion 1.5 cm distally. Additional findings: None. IMPRESSION: Limited evaluation due to poor acoustic windowing and patient inability to tolerate examination. If there is persistent clinical concern recommend repeat examination when patient better able to tolerate. Increased hepatic echogenicity can be seen in setting of hepatic steatosis. Signed: Dulce Maria Sales Verified Date/Time: 09/02/2021 03:38:29 Urinalysis w/Microscopic + Reflex to [id number] 02:29:12 Test Item Value Reference Range Interpretation Comments Color, UA (test code Brown = 5778-6) Clarity, UA (test Hazy code = 5767-9) Specific [place], UA 1.029 1.001-1.035 (test code = 5811-5) pH, UA (test code = 6.0 5.0-8.0 5803-2) Protein, UA (test 30 mg/dL Negative A code = 85509-8) Glucose, UA (test Negative Negative code = 365) Ketones, UA (test Negative Negative code = 2514-8) Bilirubin, UA (test Negative Negative code = 53462-1) Blood, UA (test code Small Negative A = 31290-7) Nitrite, UA (test Negative Negative code = 5802-4) Leukocytes, UA (test Moderate Negative A code = 5799-2) Urobilinogen, UA 0.2 mg/dL 0.2-1.0 (test code = 74056-8) RBC, UA (test code = 18 See_Comment [Autom ated 70450-1) message] The system which generated this result transmit barron reference range : /HPF. The reference range was not used to interpret this result as normal/abnormal . WBC, UA (test code = 36 See_Comment [Autom ated 5821-4) message] The system which generated this result transmit barron reference range : /HPF. The reference range was not used to interpret this result as normal/abnormal . Bacteria, UA (test Rare code = 65794-0) Mucus (test code = Moderate 8247-9) Squam Epithel, UA 2 See_Comment [Automate d (test code = 30797-2) messag e] The system which generated this result transmit barron reference range : /HPF. The reference range was not used to interpret this result as normal/abnormal . Hyaline Casts, UA 3 See_Comment [Automate d (test code = 62862-6) messag e] The system which generated this result transmit barron reference range : /LPF. The reference range was not used to interpret this result as normal/abnormal . Crystals, Urine (test None Seen code = 23667-8) Amorphous Crystals Rare (test code = 28647-8) Specimen Source (test code = 2795) REJI (test code = REJI) Orange Picking Supervisor ID - [auto]Orange Picking Supervisor ID - tech Lab Interpretation Abnormal (test code = 42481-8) [facility] URINE [id number] 02:29:12 Test Item Value Reference Range Interpretation Comments COLOR (BEAKER) (test code = 470) Brown CLARITY (BEAKER) (test code = 469) Hazy SPECIFIC GRAVITY UA (BEAKER) (test 1.029 1.001-1.035 code = 468) PH UA (BEAKER) (test code = 467) 6.0 5.0-8.0 PROTEIN UA (BEAKER) (test code = 30 mg/dL Negative A 464) GLUCOSE UA (BEAKER) (test code = Negative Negative 365) KETONES UA (BEAKER) (test code = Negative Negative 371) BILIRUBIN UA (BEAKER) (test code = Negative Negative 462) BLOOD UA (BEAKER) (test code = 461) Small Negative A NITRITE UA (BEAKER) (test code = Negative Negative 465) LEUKOCYTE ESTERASE UA (BEAKER) Moderate Negative A (test code = 466) UROBILINOGEN UA (BEAKER) (test code 0.2 mg/dL 0.2-1.0 = 463) RBC UA (BEAKER) (test code = 519) 18 /HPF WBC UA (BEAKER) (test code = 520) 36 /HPF BACTERIA (BEAKER) (test code = 517) Rare MUCUS (BEAKER) (test code = 1574) Moderate SQUAMOUS EPITHELIAL (BEAKER) (test 2 /HPF code = 516) HYALINE CASTS (BEAKER) (test code = 3 /LPF 514) CRYSTALS, URINE (BEAKER) (test code None Seen = 1521) AMORPHOUS CRYSTALS (BEAKER) (test Rare code = 1584) SOURCE(BEAKER) (test code = 2795) Orange Picking Supervisor ID - [auto]Orange Picking Supervisor ID - techRAD, CHEST, 1 VIEW, NON [id number] 01:45:00Reason for exam:->leukocytosis, unable to provide historyShould this be performed at the bedside?->Yes [facility] : 1960 Sex: FFINAL REPORT Chest, 1 view. History: Leukocytosis Comparison: None available. IMPRESSION: The cardiomediastinal silhouette and pulmonary vasculature are within normal limitsfor a portable exam. Patchy bandlike airspace opacity in the right perihilar lung, may be related toatelectasis in the setting of low lung volumes however atypical infection can have this appearance. Recommend short interval follow-up examination to ensure resolution. No pleural effusion or pneumothorax. No lobar consolidation. Vascular stent in the right upper quadrant. Postsurgical changes of cholecystectomy. No acute osseous abnormality. Signed: Dulce Maria Sales Verified Date/Time: 0 09/02/2021 01:45:23 CBC W/PLT COUNT & AUTO [id number] 00:20:23 Test Item Value Reference Range Interpretation Comments WHITE BLOOD CELL COUNT (BEAKER) 23.7 K/ L 3.5-10.5 H (test code = 775) RED BLOOD CELL COUNT (BEAKER) 2.89 M/ L 3.93-5.22 L (test code = 761) HEMOGLOBIN (BEAKER) (test code = 9.4 GM/DL 11.2-15.7 L 410) HEMATOCRIT (BEAKER) (test code = 29.5 % 34.1-44.9 L 411) MEAN CORPUSCULAR VOLUME (BEAKER) 102.1 fL 79.4-94.8 H (test code = 753) MEAN CORPUSCULAR HEMOGLOBIN 32.5 pg 25.6-32.2 H (BEAKER) (test code = 751) MEAN CORPUSCULAR HEMOGLOBIN CONC 31.9 GM/DL 32.2-35.5 L (BEAKER) (test code = 752) RED CELL DISTRIBUTION WIDTH 16.9 % 11.7-14.4 H (BEAKER) (test code = 412) PLATELET COUNT (BEAKER) (test code 78 K/CU MM 150-450 L = 756) MEAN PLATELET VOLUME (BEAKER) 11.5 fL 9.4-12.3 (test code = 754) NUCLEATED RED BLOOD CELLS (BEAKER) 0 /100 WBC 0-0 (test code = 413) (CELLAVISION MANUAL DIFF)2021-09-02 00:20:01 Test Item Value Reference Range Interpretation Comments NEUTROPHILS - REL 95 % (CELLAVISION)(BEAKER) (test code = 2816) MONOCYTES - REL 1 % (CELLAVISION)(BEAKER) (test code = 2818) BANDS - REL (CELLAVISION)(BEAKER) 4 % 0-10 (test code = 2826) NEUTROPHILS - ABS 22.52 K/ul 1.56-6.13 H (CELLAVISION)(BEAKER) (test code = 2830) MONOCYTES - ABS 0.24 K/uL 0.24-0.36 (CELLAVISION)(BEAKER) (test code = 2832) BANDS - ABS (CELLAVISION)(BEAKER) 0.95 K/uL 0.00-0.80 H (test code = 2840) TOTAL COUNTED (BEAKER) (test code 100 = 1351) PLT MORPHOLOGY (BEAKER) (test code Normal = 486) SMUDGE CELLS (BEAKER) (test code = Present 1371) ANISOCYTOSIS (BEAKER) (test code = 1+ few 961) POIKILOCYTES (BEAKER) (test code = 3+ many 966) SPHEROCYTES (BEAKER) (test code = 1+ few 768) OVALOCYTES (BEAKER) (test code = 1+ few 477) TEAR DROP CELLS (BEAKER) (test 1+ few code = 481) ACANTHOCYTES (BEAKER) (test code = 1+ few 471) ELIF CELLS (BEAKER) (test code = 1+ few 474) HELMET CELLS (CELLAVISION)(BEAKER) 1+ few (test code = 3434) PLATELET CONCENTRATION Decreased (CELLAVISION)(BEAKER) (test code = 3438) Orange Picking Supervisor ID - Curtis Grullon comments: Slide comments:PT/[id number] 23:44:49 Test Item Value Reference Interpretation Comments Range Protime (test code = 22.8 See_Comment H [Autom ated 7086-2) message] The system which generated this result transmitted reference range : 11.9 - 14.2 seconds. The reference range was not used to interpret this result as normal/abnormal . INR (test code = 2.04 See_Comment [Automated 8141-6) message] The system which generated this result transmitted reference range : <=5.90. The reference range was not used to interpret this result as normal/abnormal . PTT (test code = 35.2 See_Comment [Automated 77032-2) message] The system which generated this result transmitted reference range : 22.5 - 36.0 seconds. The reference range was not used to interpret this result as normal/abnormal . REJI (test code = RECOMMENDED REJI) COUMADIN/WARFARIN INR THERAPY RANGESSTANDARD DOSE: 2.0 - 3.0 Includes: PROPHYLAXIS for venous thrombosis, systemic embolization; TREATMENT for venous thrombosis and/or pulmonary embolus.HIGH RISK: Target INR is 2.5-3.5 for patients with mechanical heart valves. Lab Interpretation Abnormal (test code = 08206-9) [facility]PT/[id number] 23:44:49 Test Item Value Reference Range Interpretation Comments PROTIME (BEAKER) (test 22.8 seconds 11.9-14.2 H code = 759) INR (BEAKER) (test 2.04 See_Comment [Automat ed code = 370) message] The sy stem which generated this result transmitted reference range : <=5.90. The reference range was not used to interpret this result as normal/abnormal . PARTIAL THROMBOPLASTIN 35.2 seconds 22.5-36.0 TIME (BEAKER) (test code = 760) RECOMMENDED COUMADIN/WARFARIN INR THERAPY RANGESSTANDARD DOSE: 2.0 - 3.0 Includes: PROPHYLAXIS forvenous thrombosis, systemic embolization; TREATMENT for venous thrombosis and/or pulmonary embolus.HIGH RISK: Target INR is 2.5-3.5 for patients with mechanical heart valves.BASIC METABOLIC [id number] 23:31:12 Test Item Value Reference Range Interpretation Comments SODIUM (BEAKER) 138 meq/L 136-145 (test code = 381) POTASSIUM (BEAKER) 3.2 meq/L 3.5-5.1 L (test code = 379) CHLORIDE (BEAKER) 117 meq/L 98-107 H (test code = 382) CO2 (BEAKER) (test 13 meq/L 22-29 L code = 355) BLOOD UREA NITROGEN 14 mg/dL 7-21 (BEAKER) (test code = 354) CREATININE (BEAKER) 1.18 mg/dL 0.57-1.25 (test code = 358) GLUCOSE RANDOM 120 mg/dL 70-105 H (BEAKER) (test code = 652) CALCIUM (BEAKER) 7.1 mg/dL 8.4-10.2 L (test code = 697) EGFR (BEAKER) (test 47 mL/min/1.73 ESTIMA BARRON GFR IS code = 1092) sq m NOT ACCURATE CREATININE CLEARANCE IN PREDICTING GLOMERULAR FILTRATION RATE . ESTIMATED GFR I S NOT APPLICABLE FOR DIALYSIS PATIEN TS. Orange Picking Supervisor ID - DBSpecimen slightly ysawwmtHMVLHHWBW2708-47-17 23:19:46 Test Item Value Reference Range Interpretation Comments MAGNESIUM (BEAKER) (test code = 1.8 mg/dL 1.6-2.6 627) Orange Picking Supervisor ID - [id number] 23:19:46 Test Item Value Reference Range Interpretation Comments PHOSPHORUS (BEAKER) (test code = 1.9 mg/dL 2.3-4.7 L 604) Orange Picking Supervisor ID - DBHEPATIC FUNCTION [id number] 23:19:46 Test Item Value Reference Range Interpretation Comments TOTAL PROTEIN (BEAKER) (test code = 5.0 gm/dL 6.0-8.3 L 770) ALBUMIN (BEAKER) (test code = 1145) 2.5 g/dL 3.5-5.0 L BILIRUBIN TOTAL (BEAKER) (test code 3.8 mg/dL 0.2-1.2 H = 377) BILIRUBIN DIRECT (BEAKER) (test 1.5 mg/dL 0.1-0.5 H code = 706) ALKALINE PHOSPHATASE (BEAKER) (test 65 U/L 40-150 code = 346) AST (SGOT) (BEAKER) (test code = 23 U/L 5-34 353) ALT (SGPT) (BEAKER) (test code = 14 U/L 6-55 347) Orange Picking Supervisor ID - DBSpecimen slightly ictericLactic acid, [id number] 23:13:03 Test Item Value Reference Range Interpretation Comments Lactate, Venous (test 2.88 mmol/L 0.50-2.20 H code = 2872) REJI (test code = REJI) Orange Picking Supervisor ID - DBSpecimen slightly icteric Lab Interpretation (test Abnormal code = 56125-1) [facility] HospitalLACTIC ACID, [id number] 23:13:03 Test Item Value Reference Range Interpretation Comments LACTATE BLOOD VENOUS (2) (BEAKER) 2.88 mmol/L 0.50-2.20 H (test code = 2872) Orange Picking Supervisor ID - DBSpecimen slightly ictericPOC-Glucose [id number] 22:47:30 Test Item Value Reference Range Interpretation Comments POC-Glucose Meter (test 106 mg/dL 70-110 : TE STED AT [facility] code = 1538) [address] [facility], [address]: Orange Picking Supervisor/Techni sowmya ID = [id number] for ULLATTIL, TAYA K Lab Interpretation (test Normal code = 29594-6) [facility] HospitalPOCT-GLUCOSE [id number] 22:47:30 Test Item Value Reference Range Interpretation Comments POC-GLUCOSE METER 106 mg/dL 70-110 : TESTED A T [facility] [address] (BEAKER) (test code = [facility], 1538) [address]: Orange Picking Supervisor/Techni sowmya ID = [id number] for LACHO LATTIL, WALE C1Q class 1 & 2 [id number] 17:38:21 Test Item Value Reference Range Interpretation Comments Interpretation (test code ADDITIONAL ANTIBODY = 8997098) INFORMATION:DQ7 = DQB1*03:01; DQA1*05:03DQ7 = DQB1*03:19; DQA1*05:05DQ7 = DQB1*03:01; DQA1*06:01DQ9 = DQB1*03:03; DQA1*02:01DQ9 = DQB1*03:03; DQA1*03:02DQ8 = DQB1*03:02; DQA1*03:01DQ8 = DQB1*03:02; DQA1*03:02 Case number (test code = [id number]) C1Q class 1 & 2 antibody See link below for (test code = 6792829) PDF Lab Report [facility], diffusion, lung volumes, [facility]/[id number] 19:27:26 Test Item Value Reference Range Interpretation Comments FEV1 Pre (test code = 5348) 1.93 L 1.60-2.60 FVC Pre (test code = 5354) 2.38 L 2.13-3.31 FEV1/FVC % Pre (test code = 5361) 81.12 % 68.27-87.85 FEF 25-75% Pre (test code = 5547) 2.18 L/s 1.02-3.12 PEF Pre (test code = 5367) 3.77 L/s 4.10-7.01 FEV1 Predicted (test code = 5302) FEV1 LLN (test code = 5347) FEV1 % Pre of Predicted (test code = 91.7 % 5308) FVC Predicted (test code = 5307) FVC LLN (test code = 5353) FVC % Pre of Predicted (test code = 87.4 % 5355) FEV1/FVC % Predicted (test code = 5359) FEV1/FVC % LLN (test code = 5360) FEV1/FVC % Pre of Predicted (test 103.9 % code = 5362) FEF 25-75% Predicted (test code = 5546) FEF 25-75% LLN (test code = 5545) FEF 25-75% % Pre of Predicted (test 105 % code = 5548) PEF Predicted (test code = 5310) PEF LLN (test code = 5366) PEF % Pre of Predicted (test code = 67.9 % 5368) [facility] [id number] 13:53:30 Test Item Value Reference Range Interpretation Comments POC glucose (test code = 124 mg/dL 65-99 H Ope rator Name: [id number]) Clint Bustamante RDevice ID: [id number] able : [facility] Notified cnc mechanic Interpretation (test Abnormal code = 41751-2) [facility] antigen [id number] 11:33:46 Test Item Value Reference Range Interpretation Comments SAB interpretation (test Additional Antibody code = 5950) Information:DQ2=DQB1 *02:01/DQA1*04:01, DQB1*02:01/DQA1*05:0 2BV5=NUF0*04:02/DQA1 *04:88JL1=XJL6*03:01 /DPA1*01:03, DPB1*03:01/DPA1*02:0 7VJ6=MCY5*04:02/DPA1 *01:24CU98=CAT4*28:0 1/DPA1*01:03 SAB serum ID (test code = [id number] 5866) [facility] serum collection D&T 08/23/2021 05:49 AM (test code = 5867) SAB class I antibody A11,A74,A32,A3,A31,A assignment (test code = 30,A36,A1,A29,A66,A8 5870) 0,A26,A25,A43,A34,A3 3,B82 SAB cPRA class I (test code = 5868) SAB class II antibody DR18,DR17,DR13,DR14, assignment (test code = DR52,DR11,DR8,DQ7,DR 5871) 12,DQ9,DR9,DR7,DQ8,D Q2,DR4,DQ4,DP2,DP14, DP4,DP9,DP10,DP18,DP 20,DP17,DP3,DP28 SAB cPRA class II (test code = 5869) Case number (test code = [id number]) Single antigen beads See link below for (test code = 4604) PDF Lab Report [facility], [id number] 20:20:55 Test Item Value Reference Range Interpretation Comments Collection start date, urine (test 08/23/21 code = 48522-2) Collection start time, urine (test 8:40 code = 28941-4) Collection stop date, urine (test 08/24/21 code = 31747-0) Collection stop time, urine (test 8:40 code = 34041-9) Hours of collection (test code = 33499-4) Total volume, urine (test code = 800 mL 67886-0) Urine protein concentration (test 7 mg/dL code = 42838-1) Urine protein excretion (test code = mg/vol 2448) [facility] HospitalCreatinine level, urine, [id number] 20:20:52 Test Item Value Reference Range Interpretation Comments Collection start date, urine (test 08/23/21 code = 64869-5) Collection start time, urine (test 8:40 code = 11638-7) Collection stop date, urine (test 08/24/21 code = 88667-5) Collection stop time, urine (test 8:40 code = 92077-1) Hours of collection (test code = 61342-7) Total volume, urine (test code = 800 mL 16738-8) Urine creatinine concentration 114 mg/dL (test code = 25075-2) Urine creatinine excretion (test mg/vol code = 73028-2) [facility] 12 [id number] 15:33:38 Test Item Value Reference Range Interpretation Comments Ventricular rate (test code = 253) Atrial rate (test code = 255) NC interval (test code = 266) QRSD interval (test code = 260) QT interval (test code = 264) QTC interval (test code = 265) P axis 1 (test code = 267) QRS axis 1 (test code = 268) T wave axis (test code = 270) EKG impression (test Normal sinus code = 273) rhythm-Possible Lateral infarct (cited on or before 17-AUG-2021)-Cannot rule out Inferior infarct , age undetermined-Abnormal ECG- [facility] transplant [id number] 14:27:40 Test Item Value Reference Range Interpretation Comments HLA transplant evaluation See link below for (test code = 70186-4) PDF Lab Report Case number (test code = [id number]) [facility] ED Preliminary Interpretation - Not an [id number] 02:54:33 Test Item Value Reference Range Interpretation Comments REJI (test code = REJI) Orlando Balderrama MD 08/17/2021 10:33 [facility] Preliminary Interpretation - Not an OrderPerformed by: Orlando Balderrama MDAuthorized by: Orlando Balderrama MD ECG reviewed by ED Physician in the absence of a radiation oncologist: yes Interpretation: Interpretation: abnormal Rate: ECG rate: 80 ECG rate assessment: normal Rhythm: Rhythm: sinus rhythm QRS: QRS axis: Normal QRS intervals: NormalST segments: ST segments: NormalOther findings: Other findings: prolonged qTc interval Lab Interpretation Abnormal (test code = 83556-2) [facility]
[2021-12-04] MEDS ORDERED: FAMOTIDINE 20 MG/2 ML VIAL IV ONE (05:38)
[2021-12-04] MEDS ORDERED: ONDANSETRON 4 MG/2 ML VIAL ONE (05:38)
[2021-12-04] MEDS ORDERED: NA CHLORIDE 0.9% 1,000 ML ONE ×2 (05:38→15:08)
[2021-12-04 06:02] LABS: Albumin 3.4 g/dL (3.4-5.0); Bilirubin Total 2.7 mg/dL (0.2-1.0); Potassium 3.4 mmol/L (3.5-5.1); Protein, Total 7.4 g/dL (6.4-8.2)
[2021-12-04 06:06] LABS: Absolute Lymphocytes (CBC) 0.6 K/uL (0.7-4.9); Hematocrit 28.9 % (36.0-45.0); Lymphocytes % 4.8 % (15.3-44.8); MPV 9.1 fL (7.6-11.3); RBC Red Blood Cell Count 3.09 M/uL (3.86-4.86)
[2021-12-04 07:21] LABS: Platelet Estimate DECR; White Blood Cell Scan OK (OK)
[2021-12-04 07:22] LABS: Anisocytosis SLIGHT; Blood Morphology Comment NOTED (NOT SEEN); Hypochromasia 1+; Poikilocytosis SLIGHT; Polychromasia SLIGHT
[2021-12-04 09:23] LABS: Urine Appearance Cloudy (Clear); Urine Blood Trace-intact (Negative); Urine Glucose Negative (Negative); Urine Protein Negative (Negative); Urine Specific Gravity >=1.030 (1.005-1.030); Urine Urobilinogen 0.2 mg/dL (0.2-1.0)
[2021-12-04 09:27] LABS: Urine Color DK YELLOW (Yellow); Urine Microscopic Reflex ORDER UMIC
[2021-12-04 09:28] LABS: Urine Bilirubin 1+ (Negative)
[2021-12-04 09:31] LABS: Urine Bacteria >50 /HPF (<20); Urine RBC <5 /HPF (NONE SEEN)
--- NOTE | 2021-12-04 10:09 | RAD REPORT ---
EXAM DESCRIPTION: CT - Head Brain Wo Cont - 12/04/2021 9:36 am CLINICAL HISTORY: Mental status change, unknown cause COMPARISON: Head Brain Wo Cont dated 12/15/2020 TECHNIQUE: Axial 5 mm thick images of the head were obtained without IV contrast. All CT scans are performed using dose optimization technique as appropriate and may include automated exposure control or mA/KV adjustment according to patient size. FINDINGS: No intracranial hemorrhage, mass, edema or shift of mid-line structures. No cortical based infarction seen. No cortical edema or sulcal effacement. No abnormal extra-axial fluid collections. Ventricles are normal. No significant atrophy or chronic ischemic change. Intracranial findings are s imilar to the December 2020 study. Mastoid air cells are clear. No acute paranasal sinus finding. No acute bony findings. IMPRESSION: Negative noncontrast CT head study for acute finding. No significant change since the December 2020 study.
[2021-12-04] MEDS ORDERED: Levofloxacin 750mg IV 750 MG/150 ML BAG IV ONE (10:33)
[2021-12-04] MEDS ORDERED: METRONIDAZOLE 500mg IVPB 0 MG/0 ML BAG IV ONE (10:33)
--- NOTE | 2021-12-04 10:34 | EDPHYS ---
Physician Documentation [facility] Name: Bella Barron Age: 61 yrs Sex: Female : 1960 Arrival Date: 12/04/2021 Time: 04:45 Bed 13 Private MD: ED Physician Yves French HPI: 12/04 10:29 This 61 yrs old Female presents to ER via EMS with complaints of Abdominal Pain. [facility] 10:29 The patient presents with abdominal pain. Onset: The symptoms/episode began/occurred at [facility] an unknown time. Associated signs and symptoms: Pertinent positives: diarrhea, vomiting. The patient has experienced similar episodes in the past, multiple times. Historical: - Allergies: 04:47 Iodine; sm5 04:47 Phenergan; sm5 04:47 Rocephin; sm5 - Home Meds: 04:47 Allopurinol Oral [Active]; Amoxicillin Oral [Active]; benzodiazipine [Active]; sm5 Carbidopa-Levodopa Oral [Active]; escitalopram oxalate Oral [Active]; quitapine [Active]; - PMHx: 04:47 Cirrhosis; Colitis; Crohn's; Depression; Liver disease; needs kidney and liver sm5 transplant; ocd; - PSHx: 04:47 Cholecystectomy; sm5 - Immunization history:: Client reports receiving the 2nd dose of the Covid vaccine. - Social history:: Smoking status: Patient denies any tobacco usage or history of. Patient/guardian denies using alcohol, street drugs. ROS: 10:29 Abdomen/GI: Positive for abdominal pain. [facility] Exam: 10:29 Head/Face: atraumatic. Eyes: EOMI, no conjunctival erythema appreciated ENT: Moist [facility] Mucus Membranes Neck: Trachea midline, Supple Chest/axilla: Normal chest wall appearance and motion. Cardiovascular: Regular rate and rhythm. No edema appreciated Respiratory: Normal respirations, no respiratory distress appreciated 10:29 Skin: General appearance color normal 10:29 Constitutional: The patient appears in no acute distress, awake. 10:29 Abdomen/GI: Inspection: abdomen appears normal, Bowel sounds: normal, Palpation: soft, moderate abdominal tenderness, in the left lower quadrant. 10:29 Musculoskeletal/extremity: ROM: intact in all extremities. 10:29 Skin: Appearance: Color: normal in color. 10:29 Neuro: Orientation: is normal, Cranial nerves: Speech is slowed. 10:29 Psych: Behavior/mood is pleasant, cooperative. Vital Signs: 04:45 BP 113 / 58; Pulse 94; Resp 16; Temp 99.9(O); Pulse Ox 98% on R/A; Height 4 ft. 11 in. sm5 (149.86 cm); 06:40 BP 117 / 57; Pulse 101; Resp 16; Pulse Ox 100% on R/A; sm5 07:25 BP 115 / 52; Pulse 96; Resp 16; Pulse Ox 99% ; bp 08:41 BP 119 / 65; Pulse 96; Pulse Ox 99% on R/A; ap3 10:20 BP 116 / 66; Pulse 97; Pulse Ox 100% on R/A; ap3 10:46 BP 114 / 59; Pulse 98; Pulse Ox 99% on R/A; ap3 11:46 BP 107 / 51; Pulse 92; Temp 98.7(O); Pulse Ox 99% on R/A; ap3 MDM: 10:25 Patient medically screened. [facility] 10:30 Data reviewed: vital signs, nurses notes. Counseling: I had a detailed discussion with alexus the patient and/or guardian regarding: the historical points, exam findings, and any diagnostic results supporting the discharge/admit diagnosis, lab results, the need for further work-up and treatment in the hospital. ED course: I discussed the patient with Dr. Garduno whom accepted the patient to his service. . 12/04 04:56 Order name: CBC with Diff; Complete Time: 08:08 [facility] 12/04 04:56 Order name: CMP; Complete Time: 08:08 [facility] 12/04 04:56 Order name: Lipase; Complete Time: 08:08 kdr 12/04 07:22 Order name: CBC Smear Scan; Complete Time: 08:08 EDMS 12/04 08:50 Order name: AMMONIA; Complete Time: 09:58 ap3 12/04 05:06 Order name: CT Abd/Pelvis - Without Contrast [facility] 12/04 05:10 Order name: Abdomen ; Complete Time: 14:00 EDMS 12/04 08:47 Order name: Head Brain Wo Cont CT ap3 12/04 09:17 Order name: SARS-COV-2 RT PCR (Document "Date of Onset" if Symptomatic); Complete Time: jmm 10:23 12/04 09:23 Order name: Urinalysis; Complete Time: 09:38 EDMS 12/04 09:31 Order name: Urine Microscopic Only; Complete Time: 09:38 EDMS 12/04 09:34 Order name: Urine Culture EDMS 12/04 15:53 Order name: Phosphorus; Complete Time: 16:02 EDMS 12/04 04:56 Order name: IV Saline Lock; Complete Time: 05:30 kdr 12/04 04:56 Order name: Labs collected and sent; Complete Time: 05:30 kdr 12/04 08:47 Order name: Straight Cath - Urine; Complete Time: 09:23 ap3 12/04 08:51 Order name: Head Brain Wo Cont; Complete Time: 10:11 EDMS Administered Medications: 05:55 Drug: NS 0.9% 1000 ml Route: IV; Rate: 1 bolus; Site: left antecubital; [facility] 07:15 Follow up: IV Status: Completed infusion; IV Intake: 1000ml ap3 05:55 Drug: Pepcid (famotidine) 20 mg Route: IVP; Site: left antecubital; 5 11:47 Follow up: Response: No adverse reaction ap3 05:55 Drug: Zofran (Ondansetron) 4 mg Route: IVP; Site: left antecubital; 5 11:47 Follow up: Response: No adverse reaction ap3 10:41 Drug: LevaQUIN (levofloxacin) 750 mg Volume: 150 ml; Route: IVPB; Infused Over: 90 ap3 mins; Site: left antecubital; 12:05 Follow up: IV Status: Completed infusion; IV Intake: 250ml ap3 12:06 Drug: Flagyl (metroNIDAZOLE) 500 mg Volume: 100 ml; Route: IVPB; Rate: 200 ml/hr; ap3 Infused Over: 30 mins; Site: left antecubital; 12:39 Follow up: IV Status: Completed infusion ap3 Disposition Summary: 12/04/21 10:34 Hospitalization Ordered Hospitalization Status: Inpatient Admission yulisam Provider: Calos Garduno Location: Telemetry/MedSurg (Inpatient) jmm Condition: Stable jmm Problem: an acute exacerbation jmm Symptoms: are unchanged jmm Bed/Room Type: Standard [facility] Room Assignment: 405(12/04/21 15:23) bd Diagnosis - Colitis jmm - Altered Mental Status jmm Forms: - Medication Reconciliation Form [facility] - SBAR form [facility] Addendum: 12/06/2021 08:30 Co-signature as Attending Physician, Yves French MD I agree with the assessment and k dr plan of care. Signatures: Dispatcher [employer] EDIA Jada Jha Kevin, MD MD kdr Mickail, Joel, PA PA [facility] Beau Encarnacion MD MD rn Callie Gordon RN RN ap3 Marianela William RN RN sm5 Corrections: (The following items were deleted from the chart) 12/04 09:36 08:48 URINALYSIS+U.LAB.BRZ ordered. [facility] EDIA 15:23 10:34 mckenzie olmos
--- NOTE | 2021-12-04 10:34 | ER ---
Nurse's Notes [facility] Name: Bella Barron Age: 61 yrs Sex: Female : 1960 Arrival Date: 12/04/2021 Time: 04:45 Bed 13 Private MD: Diagnosis: Colitis;Altered Mental Status Presentation: 12/04 04:45 Chief complaint: EMS states: pt has been having abd pain, vomiting and diarrhea. pt sm5 slow to respond to questions and alert to self and place. Coronavirus screen: Vaccine status: Patient reports receiving the 2nd dose of the covid vaccine. Ebola Screen: No symptoms or risks identified at this time. Initial Sepsis Screen: Does the patient meet any 2 criteria? No. Patient's initial sepsis screen is negative. Does the patient have a suspected source of infection? No. Patient's initial sepsis screen is negative. Risk Assessment: Do you want to hurt yourself or someone else? Patient reports no desire to harm self or others. Onset of symptoms was December 04, 2021. 04:45 Method Of Arrival: EMS [facility] 04:45 Acuity: OLEG 3 sm5 Triage Assessment: 04:48 General: Appears in no apparent distress. Behavior is listless. Pain: Complains of pain sm5 in abdomen. Neuro: Level of Consciousness is awake, alert, Oriented to person, place. Cardiovascular: No deficits noted. Capillary refill < 3 seconds Patient's skin is warm and dry. Respiratory: Airway is patent Trachea midline Respiratory effort is even, unlabored. GI: Reports lower abdominal pain, upper abdominal pain, diarrhea, vomiting. Historical: - Allergies: 04:47 Iodine; sm5 04:47 Phenergan; sm5 04:47 Rocephin; sm5 - Home Meds: 04:47 Allopurinol Oral [Active]; Amoxicillin Oral [Active]; benzodiazipine [Active]; sm5 Carbidopa-Levodopa Oral [Active]; escitalopram oxalate Oral [Active]; quitapine [Active]; - PMHx: 04:47 Cirrhosis; Colitis; Crohn's; Depression; Liver disease; needs kidney and liver sm5 transplant; ocd; - PSHx: 04:47 Cholecystectomy; sm5 - Immunization history:: Client reports receiving the 2nd dose of the Covid vaccine. - Social history:: Smoking status: Patient denies any tobacco usage or history of. Patient/guardian denies using alcohol, street drugs. Screenin:51 Abuse screen: Denies threats or abuse. Denies injuries from another. Nutritional sm5 screening: No deficits noted. Tuberculosis screening: No symptoms or risk factors identified. Fall Risk None identified. Assessment: 05:00 Reassessment: see triage assessment. sm5 06:41 Reassessment: No changes from previously documented assessment. Patient and/or family sm5 updated on plan of care and expected duration. Pain level reassessed. 07:32 General: Behavior is calm, flat. Neuro: Oriented to person, place. Cardiovascular: ap3 Patient's skin is warm and dry. Respiratory: Airway is patent Respiratory effort is even, unlabored, patient unable to note the present year or president. 10:20 Reassessment: No changes from previously documented assessment. Patient and/or family ap3 updated on plan of care and expected duration. Pain level reassessed. 15:39 Reassessment: report called to 4th floor. ap3 Vital Signs: 04:45 BP 113 / 58; Pulse 94; Resp 16; Temp 99.9(O); Pulse Ox 98% on R/A; Height 4 ft. 11 in. sm5 (149.86 cm); 06:40 BP 117 / 57; Pulse 101; Resp 16; Pulse Ox 100% on R/A; sm5 07:25 BP 115 / 52; Pulse 96; Resp 16; Pulse Ox 99% ; bp 08:41 BP 119 / 65; Pulse 96; Pulse Ox 99% on R/A; ap3 10:20 BP 116 / 66; Pulse 97; Pulse Ox 100% on R/A; ap3 10:46 BP 114 / 59; Pulse 98; Pulse Ox 99% on R/A; ap3 11:46 BP 107 / 51; Pulse 92; Temp 98.7(O); Pulse Ox 99% on R/A; ap3 ED Course: 04:45 Patient arrived in ED. 5 04:47 Triage completed. sm5 04:50 Arm band placed on right wrist. sm5 04:52 Patient has correct armband on for positive identification. Bed in low position. Call 5 light in reach. Side rails up X2. 04:55 Yves French MD is Attending Physician. kdr 04:56 Stewart, Marianela, RN is Primary Nurse. [facility] 05:30 CBC with Diff Sent. 5 05:30 CMP Sent. 5 05:30 Lipase Sent. 5 05:51 Abdomen In Process Unspecified. EDMS 08:47 Silvio Cruz PA is PHCP. [facility] 09:23 AMMONIA Sent. [facility] 09:24 Warm blanket given. monitoring engineer on. Pulse ox on. NIBP on. [facility] 09:24 SARS-COV-2 RT PCR (Document "Date of Onset" if Symptomatic) Sent. [facility] 09:24 Initial lab(s) drawn, by ED staff, sent to lab. Urine collected: straight cath [facility] specimen, tea colored. 09:38 Head Brain Wo Cont In Process Unspecified. EDMS 10:32 Calos Garduno is Hospitalizing Provider. [facility] 12:39 Pt visited by . ap3 15:13 No provider procedures requiring assistance completed. Patient admitted, IV remains in ap3 place. Administered Medications: 05:55 Drug: NS 0.9% 1000 ml Route: IV; Rate: 1 bolus; Site: left antecubital; 5 07:15 Follow up: IV Status: Completed infusion; IV Intake: 1000ml ap3 05:55 Drug: Pepcid (famotidine) 20 mg Route: IVP; Site: left antecubital; 5 11:47 Follow up: Response: No adverse reaction ap3 05:55 Drug: Zofran (Ondansetron) 4 mg Route: IVP; Site: left antecubital; 5 11:47 Follow up: Response: No adverse reaction ap3 10:41 Drug: LevaQUIN (levofloxacin) 750 mg Volume: 150 ml; Route: IVPB; Infused Over: 90 ap3 mins; Site: left antecubital; 12:05 Follow up: IV Status: Completed infusion; IV Intake: 250ml ap3 12:06 Drug: Flagyl (metroNIDAZOLE) 500 mg Volume: 100 ml; Route: IVPB; Rate: 200 ml/hr; ap3 Infused Over: 30 mins; Site: left antecubital; 12:39 Follow up: IV Status: Completed infusion ap3 Intake: 07:15 IV: 1000ml; Total: 1000ml. ap3 12:05 IV: 250ml; Total: 1250ml. ap3 Outcome: 10:34 Decision to Hospitalize by Provider. jmm 15:13 Admitted to ER Hold. Please see [facility] for further documentation. ap3 15:13 Condition: good 15:13 Instructed on the need for admit, Demonstrated understanding of instructions. 16:09 Patient left the ED. iw Signatures: Dispatcher [employer] EDMS Yves French MD MD kdr Mickail, Joel, PA PA jmm Williams, Irene, RN RN Michelle Uribe [facility] Mikhail Lopez RN Callie Calixto RN RN [facility] Marianela William RN RN 5 Corrections: (The following items were deleted from the chart) 04:50 04:45 Chief complaint: EMS states: pt has been having abd pain, vomiting and diarrhea. 5 pt slow to respond to questions and alert to self and situation 5 09:36 09:24 URINALYSIS+U.LAB.BRZ drawn and sent. [address]
--- NOTE | 2021-12-04 12:46 | RAD REPORT ---
EXAM DESCRIPTION: CT - Abdomen Pelvis Wo Contrast - 12/04/2021 7:16 am CLINICAL HISTORY: The patient is 61 years old and is Female; Abdominal pain, acute, nonlocalized TECHNIQUE: Axial computed tomography images of the abdomen and pelvis without intravenous contrast. Sagittal and coronal reformatted images were created and reviewed. This CT exam was performed usi ng one or more of the following dose reduction techniques: automated exposure control, adjustment o f the mA and/or kV according to patient size, and/or use of iterative reconstruction technique. COMPARISON: CT of the abdomen and pelvis October 07, 2021 FINDINGS: ARTIFACTS: The exam is suboptimal secondary to motion artifact. LUNG BASES: Unremarkable. No mass. No consolidation. ABDOMEN: LIVER: Homogeneous without focal mass. The liver is diffusely fatty. GALLBLADDER AND BILE DUCTS: The gallbladder is not seen and is likely surgically absent. PANCREAS: Unremarkable. No ductal dilation. SPLEEN: The spleen is enlarged. ADRENALS: Unremarkable. No mass. KIDNEYS AND URETERS: No obstructing stones. No hydronephrosis. No perinephric fluid. STOMACH AND BOWEL: The stomach is minimally distended with fluid and air. The small bowel is rela tively normal in caliber. The colon is fluid-filled. Mild diffuse mucosal thickening throughout the c olon is present. Evidence of a right hemicolectomy is noted. PELVIS: APPENDIX: See above. BLADDER: Unremarkable. No stones. REPRODUCTIVE: A 3.5 cm right ovarian cyst is present. No follow-up imaging is recommended. The ut erus is unremarkable. ABDOMEN and PELVIS: INTRAPERITONEAL SPACE: Unremarkable. No free air. No significant fluid collection. BONES/JOINTS: No acute fracture. SOFT TISSUES: Evidence of a prior ventral wall hernia repair is present. VASCULATURE: Unremarkable. No abdominal aortic aneurysm. LYMPH NODES: Unremarkable. No enlarged lymph nodes. OTHER FINDINGS: A TIPS is in place. IMPRESSION: 1. Findings suggest mild diffuse colitis. No evidence of bowel obstruction. 2. Chronic findings as detailed above. Electronically signed by: Elvie Doss MD 12/04/2021 6:31 AM CDT Due to temporary technical issues with the PACS/Fluency reporting system, reports are being signed by the in house radiologists without review as a courtesy to insure prompt reporting. The interpreting radiologist is fully responsible for the content of the report.
--- NOTE | 2021-12-04 14:07 | P.HP ---
Certification for Inpatient Patient admitted to: Inpatient With expected LOS: >2 Midnights Practitioner: I am a practitioner with admitting privileges, knowledge of patient current condition, hospital course, and medical plan of care. Services: Services provided to patient in accordance with Admission requirements found in Title 42 Section 412.3 of the Code of Federal Regulations Patient History Date of Service: 12/04/21 Reason for admission: Vomiting, altered mental status History of Present Illness: 61-year-old woman with a history of liver cirrhosis, Crohn's disease presented to the emergency department with a complaint of nausea and vomiting. Patient noted to be confused and slow to respond. She could not provide any history. CT abdomen and pelvis done in the emergency department demonstrated mild colitis. Blood work showed mild leukocytosis and anemia, elevated bilirubin. Patient is hospitalized for further management. Allergies ceftriaxone [From Rocephin] Allergy (Verified 10/08/21 03:16) Anaphylaxis iodine Allergy (Verified 10/08/21 03:16) Anaphylaxis promethazine [From Phenergan] Allergy (Verified 10/08/21 03:16) Itching Fish Allergy (Uncoded 10/10/20 20:17) Rash Home Medications: Nystatin [Nystop] 1 alhaji TOP TID 10/09/21 Ondansetron [Zofran (Odt)*] 4 mg PO DAILY PRN 10/09/21 Rifaximin [Xifaxan] 550 mg PO BID 10/09/21 Spironolactone [Aldactone*] 25 mg PO DAILY 10/09/21 Topiramate [Topamax] 50 mg PO BID 10/09/21 Tramadol HCl [Ultram] 50 mg PO BIDP PRN 10/09/21 Ubrogepant [Ubrelvy] 100 mg PO DAILY PRN 10/09/21 estradioL [Estradiol] 1 alhaji VAG BEDTIME PRN 10/09/21 Gabapentin 300 mg PO BID 12/04/21 Quetiapine Fumarate [Quetiapine Fumarate ER] 100 mg PO BEDTIME 12/04/21 - Past Medical/Surgical History Diabetic: No -: Crohn's Disease -: Chronic liver cirrhosis with TIPS procedure -: Depression with anxiety -: Neuropathy -: Insomnia -: Parkinson's -: CKD 3 -: Anemia chronic disease -: Chronic 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 -: Neuropathy -: Insomnia -: Gout -: multiple abdominal surgery due to Crohn's -: TIPS procedure -: Bleeding esophageal varices surgery Psychosocial/ Personal History: Patient disabled, lives with family - Family History Mother -: Blood disorders Notes: recently from blood disease Father -: Heart disease - Social History Alcohol use: No CD- Drugs: No Caffeine use: Yes Review of Systems is unable to be obtained (Due to confusion) Physical Examination - Physical Exam General: Confused HEENT: PERRLA, Mucous membr. moist/pink, Sclerae nonicteric Neck: Supple, JVD not distended Respiratory: Clear to auscultation bilaterally, Normal air movement Cardiovascular: No edema, Regular rate/rhythm, Normal S1 S2 Capillary refill: <2 Seconds Gastrointestinal: Soft and benign, Non-distended, No tenderness Musculoskeletal: No swelling, No tenderness Integumentary: No rashes, No erythema, No cyanosis Neurological: Normal strength at 5/5 x4 extr, Other (Psychomotor retardation) Lymphatics: No axilla or inguinal lymphadenopathy - Studies Laboratory Data (last 24 hrs) 12/04/21 05:29: Sodium 142, Potassium 3.4 L, BUN 17, Creatinine 1.23, Glucose 117 H, Total Bilirubin 2.7 H, AST 24, ALT 17, Alkaline Phosphatase 64, Lipase 67 L 12/04/21 05:29: WBC 11.6 H, Hgb 9.8 L, Hct 28.9 L, Plt Count 101 L Assessment and Plan - Problems (Diagnosis) (1) Exacerbation of Crohn's disease Current Visit: Yes Status: Acute (2) Acute encephalopathy Onset Date: 03/18/18 Current Visit: No Status: Acute (3) Colitis Current Visit: No Status: Acute (4) Hypokalemia Onset Date: 08/23/16 Current Visit: No Status: Acute (5) Hepatic cirrhosis Onset Date: 10/03/17 Current Visit: No Status: Acute Qualifiers: Hepatic cirrhosis type: unspecified hepatic cirrhosis Ascites presence: without ascites Qualified Code(s): K74.60 - Unspecified cirrhosis of liver (6) Metabolic acidosis Current Visit: No Status: Acute - Plan Admit patient to the medical floor. Supportive measures with IV fluid. Start empiric antibiotics-IV Cipro and Flagyl Antiemetics as needed IV steroid for Crohn's disease flare. Continue rifaximin and Aldactone for liver disease Hold lactulose given that patient already has diarrhea. Monitor blood chemistry to follow metabolic acidosis. Neurochecks. - Advance Directives Does patient have a Living Will: Yes Does patient have a Durable POA for Healthcare: Yes
[2021-12-04] MEDS ORDERED: PROMETHAZINE 25 MG TABLET PO PRN (15:00)
[2021-12-04] MEDS: NA CHLORIDE 0.9% 1,000 ML IV SCH (15:00)
[2021-12-04] MEDS ORDERED: ONDANSETRON 4 MG/2 ML VIAL IV PRN (15:00)
[2021-12-04] MEDS ORDERED: METRONIDAZOLE 500mg IVPB 500 MG/100 ML BAG IV ONE (15:08)
[2021-12-04 15:23] VITALS: O2SAT 99; BMI 43.4
[2021-12-04] MEDS: METRONIDAZOLE 500mg IVPB 500 MG/100 ML BAG IV SCH (17:00)
[2021-12-04] MEDS ORDERED: TOPIRAMATE 50 MG PO SCH (21:00)
[2021-12-04] MEDS: RIFAXIMIN 550 MG PO SCH (21:00)
[2021-12-04] MEDS: TOPIRAMATE 25 MG TAB PO SCH (21:08)
[2021-12-04] MEDS: METHYLPREDNISOLONE 40 MG INJ IV SCH (21:08)
[2021-12-04] MEDS: CIPROFLOXACIN 400mg IV 400 MG/200 ML BAG IV SCH (21:09)
[2021-12-04] MEDS: Rifaximin 550 MG Tab PO SCH (21:09)
[2021-12-04] MEDS: GABAPENTIN 300 MG CAP PO SCH (22:22)
[2021-12-04] MEDS: TRAMADOL HCL 50 MG TAB PO PRN (22:22)
[2021-12-05] MEDS: METRONIDAZOLE 500mg IVPB 500 MG/100 ML BAG IV SCH ×3 (02:55→16:52)
[2021-12-05 03:54] LABS: Absolute Lymphocytes (CBC) 0.3 K/uL (0.7-4.9); Hematocrit 25.3 % (36.0-45.0); Lymphocytes % 3.5 % (15.3-44.8); MPV 8.2 fL (7.6-11.3); Protime INR 1.72; RBC Red Blood Cell Count 2.75 M/uL (3.86-4.86)
[2021-12-05 04:12] LABS: Albumin 2.9 g/dL (3.4-5.0); Bilirubin Total 2.3 mg/dL (0.2-1.0); C-Reactive Protein 34.9 mg/L (<3.00); Magnesium 1.5 mg/dL (1.8-2.4); Protein, Total 6.7 g/dL (6.4-8.2); Thyroid Stimulating Hormone 0.868 uIU/mL (0.360-3.740)
[2021-12-05] MEDS ORDERED: POTASSIUM CL SA 10 MEQ TAB PO ONE ×2 (06:22→17:00)
[2021-12-05] MEDS ORDERED: Magnesium Sulfate 2gm IVPB 2 G/50 ML BAG IV ONE (06:22)
--- NOTE | 2021-12-05 06:49 | P.PN ---
Date of Service: 12/05/21 Subjective: slight improvement still with abd discomfort and nausea. no vomiting loose stool ROS: 10 point ROS as noted above, otherwise negative Physical exam GEN: Alert, oriented, slow to respond, but appropriate HEENT: Normal conjunctiva, sclera anicteric CV: Regular rate and rhythm, no edema Pulm: Nonlabored respirations on room air ABD: Soft, mild diffuse discomfort on palpation Neuro: Normal speech, normal affect Problem List colitis, secondary to crohn's flare acute hepatic encephalopathy h/o recurrent c.diff colitis recurrent UTIs hepatic cirrhosis hypokalemia continue IVF IV cipro and flagyl denies dysuria, no urinary urgency/frequency continue antiemetics as needed stool sent for c diff yesterday, f/u result probiotic ordered continue rifaximin, aldactone hold lactulose, pt with diarrhea improving Code: full Dispo: home, ~1-2 days Time Spent Managing Pts Care (In Minutes): 35
[2021-12-05] MEDS: RIFAXIMIN 550 MG PO SCH ×2 (07:48→20:54)
[2021-12-05] MEDS: GABAPENTIN 300 MG CAP PO SCH ×2 (08:42→20:52)
[2021-12-05] MEDS: CIPROFLOXACIN 400mg IV 400 MG/200 ML BAG IV SCH ×2 (08:42→20:54)
[2021-12-05] MEDS: METHYLPREDNISOLONE 40 MG INJ IV SCH ×2 (08:42→20:54)
[2021-12-05] MEDS: SPIRONOLACTONE 25 MG TABLET PO SCH (08:42)
[2021-12-05] MEDS: TOPIRAMATE 25 MG TAB PO SCH ×2 (08:42→20:53)
[2021-12-05] MEDS: Rifaximin 550 MG Tab PO SCH ×2 (08:43→20:53)
[2021-12-05] MEDS: NA CHLORIDE 0.9% 1,000 ML IV SCH (08:43)
[2021-12-05] MEDS: LACTOBACILLUS/ACIDOPHILUS TAB PO SCH ×2 (14:05→20:52)
[2021-12-05] MEDS: TRAMADOL HCL 50 MG TAB PO PRN (15:45)
[2021-12-05] MEDS: QUETIAPINE 100MG TAB PO SCH (20:52)
[2021-12-06] MEDS: METRONIDAZOLE 500mg IVPB 500 MG/100 ML BAG IV SCH ×3 (00:18→16:42)
[2021-12-06 04:12] LABS: Absolute Lymphocytes (CBC) 0.4 K/uL (0.7-4.9); Hematocrit 24.3 % (36.0-45.0); Lymphocytes % 5.3 % (15.3-44.8); MPV 8.5 fL (7.6-11.3); RBC Red Blood Cell Count 2.63 M/uL (3.86-4.86)
[2021-12-06 04:29] LABS: C-Reactive Protein 24.8 mg/L (<3.00); Magnesium 2.4 mg/dL (1.8-2.4); Potassium 3.7 mmol/L (3.5-5.1)
[2021-12-06] MEDS ORDERED: POTASSIUM CL SA 10 MEQ TAB PO ONE (06:30)
--- NOTE | 2021-12-06 07:13 | P.PN ---
Date of Service: 12/06/21 Subjective: more diarrhea overnight, feels abd pain same / maybe slightly worse reports she saw undigested pill capsule in diarrhea afebrile, blood pressure low feels some "brain fog" off and on still ROS: 10 point ROS as noted above, otherwise negative Physical exam GEN: Alert, orientedx3, responds appropriately, but with some confusion when probed further HEENT: Normal conjunctiva, sclera anicteric CV: Regular rate and rhythm, no edema Pulm: Non-labored respirations on room air ABD: Soft, mild-moderate diffuse discomfort on palpation Neuro: Normal speech, normal affect Problem List colitis, likely secondary to crohn's flare UTI acute hepatic encephalopathy h/o recurrent c.diff colitis recurrent UTIs hepatic cirrhosis hypokalemia restart IVF given worsening diarrhea and low blood pressure IV cipro and flagyl denies dysuria, no urinary urgency/frequency, however states abominal pain has been distracting from any other problems urine culture grew klebsiella, covered by cipro continue antiemetics as needed stool sent for c diff, f/u result; send off stool studies today - culture/lactoferrin probiotic ordered continue rifaximin, aldactone hold lactulose, pt with diarrhea, mentation improved but with slight confusion still may be having two separate issues going on, UTI and crohn's flare with worsening of diarrhea and pain, I spoke to patient's GI office. No GI available / distribution specialist here this week. recommended transfer if needed. On follow up this afternoon, patient reported decreased frequency of diarrhea and pain improved. She did not want to be transferred at this time given improvement. Continue antibiotics /steroids initiate transfer if patient worsens Code: full Dispo: home, ~1-2 days Time Spent Managing Pts Care (In Minutes): 35
[2021-12-06] MEDS: RIFAXIMIN 550 MG PO SCH (09:00)
[2021-12-06] MEDS: Rifaximin 550 MG Tab PO SCH ×2 (09:32→21:06)
[2021-12-06] MEDS: LACTOBACILLUS/ACIDOPHILUS TAB PO SCH ×3 (09:33→21:05)
[2021-12-06] MEDS: GABAPENTIN 300 MG CAP PO SCH ×2 (09:33→21:05)
[2021-12-06] MEDS: TOPIRAMATE 25 MG TAB PO SCH ×2 (09:33→21:05)
[2021-12-06] MEDS: SPIRONOLACTONE 25 MG TABLET PO SCH (09:33)
[2021-12-06] MEDS: METHYLPREDNISOLONE 40 MG INJ IV SCH ×2 (09:34→21:06)
[2021-12-06] MEDS: CIPROFLOXACIN 400mg IV 400 MG/200 ML BAG IV SCH ×2 (09:50→21:06)
[2021-12-06] MEDS ORDERED: NA CHLORIDE 0.9% 1,000 ML IV SCH (14:00)
[2021-12-06] MEDS: TRAMADOL HCL 50 MG TAB PO PRN (16:41)
[2021-12-06] MEDS: QUETIAPINE 100MG TAB PO SCH (21:05)
[2021-12-07] MEDS: METRONIDAZOLE 500mg IVPB 500 MG/100 ML BAG IV SCH ×2 (00:22→08:44)
[2021-12-07 04:16] LABS: Hematocrit 24.7 % (36.0-45.0); MPV 8.6 fL (7.6-11.3); RBC Red Blood Cell Count 2.67 M/uL (3.86-4.86)
[2021-12-07 04:50] LABS: Albumin 2.7 g/dL (3.4-5.0); Bilirubin Total 1.1 mg/dL (0.2-1.0); Potassium 3.6 mmol/L (3.5-5.1); Protein, Total 6.2 g/dL (6.4-8.2)
[2021-12-07 04:51] LABS: Magnesium 2.2 mg/dL (1.8-2.4)
--- NOTE | 2021-12-07 06:59 | P.PN ---
Date of Service: 12/07/21 Subjective: ROS: 10 point ROS as noted above, otherwise negative Physical exam GEN: Alert, orientedx3, responds appropriately, but with some confusion when probed further HEENT: Normal conjunctiva, sclera anicteric CV: Regular rate and rhythm, no edema Pulm: Non-labored respirations on room air ABD: Soft, mild-moderate diffuse discomfort on palpation Neuro: Normal speech, normal affect Problem List colitis, likely secondary to crohn's flare UTI acute hepatic encephalopathy h/o recurrent c.diff colitis recurrent UTIs hepatic cirrhosis hypokalemia restart IVF given worsening diarrhea and low blood pressure IV cipro and flagyl denies dysuria, no urinary urgency/frequency, however states abominal pain has been distracting from any other problems urine culture grew klebsiella, covered by cipro continue antiemetics as needed stool sent for c diff, f/u result; send off stool studies today - culture/lactoferrin probiotic ordered continue rifaximin, aldactone hold lactulose, pt with diarrhea, mentation improved but with slight confusion still may be having two separate issues going on, UTI and crohn's flare with worsening of diarrhea and pain, I spoke to patient's GI office. 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 recommended transfer if needed. On follow up this afternoon, patient reported decreased frequency of diarrhea and pain improved. She did not want to be transferred at this time given improvement. Continue antibiotics /steroids initiate transfer if patient worsens Code: full Dispo: home, ~1-2 days Time Spent Managing Pts Care (In Minutes): 35
[2021-12-07] MEDS: SPIRONOLACTONE 25 MG TABLET PO SCH (08:41)
[2021-12-07] MEDS: Rifaximin 550 MG Tab PO SCH (08:42)
[2021-12-07] MEDS: METHYLPREDNISOLONE 40 MG INJ IV SCH (08:42)
[2021-12-07] MEDS: TOPIRAMATE 25 MG TAB PO SCH (08:43)
[2021-12-07] MEDS: LACTOBACILLUS/ACIDOPHILUS TAB PO SCH ×2 (08:43→13:26)
[2021-12-07] MEDS: GABAPENTIN 300 MG CAP PO SCH (08:43)
[2021-12-07] MEDS: CIPROFLOXACIN 400mg IV 400 MG/200 ML BAG IV SCH (08:44)
[2021-12-07] MEDS ORDERED: POTASSIUM CL SA 10 MEQ TAB PO ONE (09:00)
[2021-12-07 11:54] VITALS: BP 122/67; TEMP 97.3
[2021-12-07 12:41] LABS: C.diff Antigen/Toxin Ag neg : Tox neg (NEG : NEG)
--- NOTE | 2021-12-07 18:04 | P.DS ---
Admission Date: 12/04/21 Discharge Date: 12/07/21 Disposition: ROUTINE DISCHARGE Discharge Condition: GOOD Reason for Admission: Vomiting, altered mental status Procedures: Problem List Colitis, likely secondary to crohn's flare UTI acute encephalopathy, hepatic h/o recurrent c.diff colitis h/o recurrent UTIs hepatic cirrhosis hypokalemia Brief History of Present Illness: 61-year-old woman with a history of liver cirrhosis, Crohn's disease presented to the emergency department with a complaint of nausea and vomiting. Patient noted to be confused and slow to respond. She could not provide any history. CT abdomen and pelvis done in the emergency department demonstrated mild colitis. Blood work showed mild leukocytosis and anemia, elevated bilirubin. Patient is hospitalized for further management. Hospital Course: Patient was noted to have mild colitis on CT abdomen. Treated empirically for crohn's flare up /infectious etiology with cipofloxacin, flagyl, and steroids. She had gradual improvement of her diarrhea, abdominal pain, and confusion. Ammonia levels remained WNL and mentation improved without lactulose, which was not given due to ongoing diarrhea. On day of discharge she reported significant improvement and only 2 small, more formed bowel movements. Tolerating regular diet. Urine was noted to grow Klebsiella Discharged home to continue steroid taper, and antibiotics. Suspect patient's symptoms were multifactorial from UTI and possible mild crohn's flare. CRP and procalcitonin were elevated and trended down as well. Stool c diff testing was negative. Of note, when I re-evaluated early afternoon, she was seen transferring a pill from hospital medicine cup to a specimen cup and placed in her bag. Review of MAR showed only the probiotic was given within the hour of this event. Vital Signs/Physical Exam: Temp Pulse Resp BP Pulse Ox 97.3 F 73 16 122/67 98 12/07/21 11:52 12/07/21 11:52 12/07/21 11:52 12/07/21 11:52 12/07/21 11:52 Physical exam GEN: Alert, orientedx3, responds appropriately HEENT: Normal conjunctiva, sclera anicteric CV: Regular rate and rhythm, no edema Pulm: Non-labored respirations on room air ABD: Soft, non-tender, non-distended Neuro: Normal speech, normal affect Laboratory Data at Discharge: WBC 7.9 K/uL (4.3-10.9) 12/07/21 03:07 Hgb 8.4 g/dL (12.0-15.0) L 12/07/21 03:07 Hct 24.7 % (36.0-45.0) L 12/07/21 03:07 Plt Count 68 K/uL (152-406) L 12/07/21 03:07 PT 19.1 SECONDS (9.5-12.5) H 12/05/21 03:22 INR 1.72 12/05/21 03:22 Sodium 144 mmol/L (136-145) 12/07/21 03:07 Potassium 3.6 mmol/L (3.5-5.1) 12/07/21 03:07 BUN 23 mg/dL (7-18) H 12/07/21 03:07 Creatinine 0.85 mg/dL (0.55-1.3) 12/07/21 03:07 Glucose 144 mg/dL (74-106) H 12/07/21 03:07 Phosphorus 2.5 mg/dL (2.5-4.9) 12/04/21 15:22 Magnesium 2.2 mg/dL (1.8-2.4) 12/07/21 03:07 Total Bilirubin 1.1 mg/dL (0.2-1.0) H 12/07/21 03:07 AST 17 U/L (15-37) 12/07/21 03:07 ALT 15 U/L (12-78) 12/07/21 03:07 Alkaline Phosphatase 57 U/L (45-117) 12/07/21 03:07 Lipase 67 U/L (73-393) L 12/04/21 05:29 Home Medications: Nystatin [Nystop] 1 alhaji TOP TID 10/09/21 Ondansetron [Zofran (Odt)*] 4 mg PO DAILY PRN 10/09/21 Rifaximin [Xifaxan] 550 mg PO BID 10/09/21 Spironolactone [Aldactone*] 25 mg PO DAILY 10/09/21 Topiramate [Topamax] 50 mg PO BID 10/09/21 Tramadol HCl [Ultram] 50 mg PO BIDP PRN 10/09/21 Ubrogepant [Ubrelvy] 100 mg PO DAILY PRN 10/09/21 estradioL [Estradiol] 1 alhaji VAG BEDTIME PRN 10/09/21 Gabapentin 300 mg PO BID 12/04/21 Quetiapine Fumarate [Quetiapine Fumarate ER] 100 mg PO BEDTIME 12/04/21 Ramelteon 8 mg PO BEDTIME 12/05/21 Ciprofloxacin HCl [Cipro] 500 mg PO BID 10 Days #20 tablet 12/07/21 metroNIDAZOLE [Flagyl] 500 mg PO Q8H 10 Days #30 tablet 12/07/21 predniSONE [Prednisone] 20 mg PO SEECOM 28 Days #35 tablet 12/07/21 New Medications: Ciprofloxacin HCl [Cipro] 500 mg PO BID 10 Days #20 tablet metroNIDAZOLE [Flagyl] 500 mg PO Q8H 10 Days #30 tablet predniSONE [Prednisone] 20 mg PO SEECOM 28 Days #35 tablet Followup: NONE,NONE [Primary Care Provider] - Time spent managing pt's care (in minutes): 45
[2021-12-07] MEDS ORDERED: RAMELTEON 8 MG TABLET PO SCH (21:00)
== END 2021-12-07 16:16 | disposition home or self-care (01) | DRG 391 ==
LOC: ER 04:38 → ERHOLD 14:07 → 4TH 15:39
PROVIDERS: ADMIT Internal Medicine; ATTEND Internal Medicine
DX: K52.9 Noninfective gastroenteritis and colitis, unspecified (principal); K72.00 Acute and subacute hepatic failure without coma; K50.90 Crohn's disease, unspecified, without complications; N39.0 Urinary tract infection, site not specified; E87.2 Acidosis; B96.1 Klebsiella pneumoniae [K. pneumoniae] as the cause of diseases classified elsewhere; K74.60 Unspecified cirrhosis of liver; E87.6 Hypokalemia; F41.8 Other specified anxiety disorders; G20 Parkinson's disease; Z20.822 Contact with and (suspected) exposure to COVID-19
CPT/HCPCS: 36415; 70450; 74176; 80048; 80053; 81003; 81015; 82140; 83631; 83690; 83735; 84100; 84132; 84145; 84443; 85025; 85027; 85610; 85652; 86140; 87077; 87086; 87088; 87186; 87324; 87449; 96361; 96365; 96367; 96375; 97116; 97161; 99285; J0744; J2405; J2920; J3475; J3490; J7030; Q0169; U0003

== ENCOUNTER 2021-12-17 19:11 | Emergency (ER) | payer OTHER ==
--- OUTSIDE RECORDS SUMMARY | 2021-12-17 19:21 | XMS REPORT | Continuity of Care Document ---
:1960 Author Organization [facility] t Address [address] [place] [address] Care Team Providers Name Role Phone Robby [...] Attending Clinician Ping Garcia MD Attending Clinician Curry Gutierrez DO Attending Clinician Gus Azevedo MD Attending Clinician Gabriel Perez MD Attending Clinician Daija HERRON, S Attending Clinician ROLANDO Admitting Clinician Unavailable ELAINA LAWRENCE Admitting Clinician Unavailable TING PIERSON Admitting Clinician Unavailable DAVINA Admitting Clinician Unavailable CHELA Admitting Clinician Unavailable Payers Payer Name Policy Type Policy Number Effective Date Expiration Date Nafisa vasquez MEDICARE A B [id number] 2015 00:00:00 GENERIC MEDICAID [id number] 2021 HMO 00:00:00 Advance Directives Directive Decision Effective Termination Comments Source Date Date Healthcare Agents on N/A NPI: [id number] FileNameRelationshipHealthcare [id number] Agent RelationshipCommunicationPaul MaconSpouseHealth Care [phone] (Mobile) Problems Condition Condition Condition Status Onset Resolution Last Treating Co mments Source Name Details Category Date Date Treatment Clinician Date Altered Altered Disease Active NPI:118 mental mental 1-22 [id number] status status 00:00: 00 SBP SBP Disease Active [facility] (spontaneo (spontaneo 08-24 [facility] 00:00: Hospita bacterial bacterial 00 l peritoniti peritoniti s) s) Debility Debility Disease Active Metho di 08-21 00:00: Hospita 00 l Mobility Mobility Disease [...] Added automatic ally from request for surgery [id number] Chronic Chronic Disease Active 2020-08 [facility] kidney [...] Slurred Disease Active [facility] speech speech 05-08 00:00: Hospita 00 l CAM (acute CAM (acute Disease Active M ethodi kidney kidney 05-08 st injury) injury) 00:00: Hospita 00 l UTI UTI Disease Active [facility] (urinary (urinary 04-14 st tract tract 00:00: Hospita infection) infection) 00 l Altered Altered Disease Active [facility] mental mental 03-19 status, status, 00:00: Hospita unspecifie unspecifie 00 l d d Obesity Obesity Disease Active NPI:183 (BMI (BMI 03-06 0011375 30-39.9) 30-39.9) 00:00: 00 Hematochez Hematochez Disease Active N PI:183 ia ia 03-06 [id number] 00:00: 00 Abdominal Abdominal Disease Active [facility] pain pain 4 st 00:00: Hospita 00 l Weakness Weakness Disease Active Metho di 1 st 00:00: Hospita 00 l Chest pain Chest [...] hepatic hepatic 10-05 st encephalop encephalop 00:00: Ho warren athy athy 00 l Hematochez Hematochez Disease Active M ethodi ia ia 12-11 st 00:00: Hospita 00 l Melena Melena Disease Active Overview: Method i 12-[address] 00:00: g of this Hospita 00 note l might be different from the original. 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 09-12 st of liver of liver 00:00: Hospit a 00 l Hepatic Hepatic Disease Active 2015-08 NPI:183 encephalop encephalop 2 13 90328 athy athy 00:00: 00 Hepatic Hepatic Disease Active 2015-08 [facility] encephalop encephalop [address] athy athy 00:00: Hospita 00 l [...] Hospita 00 l Right Right Disease Active NPI:183 shoulder shoulder 12-04 164296 1 pain pain 00:00: 00 Alcoholic Alcoholic Disease Active NPI :183 cirrhosis cirrhosis 12-01 [id number] 00:00: 00 Anxiety Anxiety Disease Active NPI:183 and and 12-01 [id number] depression depression 00:00: 00 Rectal Rectal Disease Active 2014-08 NPI:183 bleed bleed 09-14 [id number] 00:00: 00 Crohn Crohn Disease Active NPI:118 disease disease [id number] Allergies, Adverse Reactions, Alerts Allergy Allergy Status Severity Reaction(s) Onset Inactive Treating Comm ents Source Name Type Date Date Clinician FISH Allergy Active [facility] CONTAINI 2- NG 00:00: PRODUCTS 00 SHELLFIS Allergy Active [facility] H 2- CONTAINI 00:00: NG 00 PRODUCTS Eggshell Drug Active NPI:118 Membrane Allergy 1- [id number] 00:00: 00 EGGSHELL Allergy Active [facility] MEMBRANE 1-27 00:00: 00 CEFTRIAX Allergy Active NPI:118 ONE 1- [id number] 00:00: 00 IODINE Allergy Active NPI:118 1-22 [id number] 00:00: 00 PROMETHA Allergy Active NPI:118 ZINE 1- [id number] 00:00: 00 Ceftriax Propensi Active NPI:11 8 one ty to 09-02 [id number] adverse 00:00: reaction 00 s Iodine Propensi Active NPI:118 ty to 09-02 [id number] adverse 00:00: reaction 00 s Prometha Propensi Active NPI:11 8 zine ty to 09-02 [id number] adverse 00:00: reaction 00 s Ciproflo Propensi Active Hives 2020-08 Method i xacin ty to 0-13 st adverse 00:00: Hospita reaction 00 l s to drug Ceftriax Propensi Active Itching Metho di one ty to 10-06 st adverse 00:00: Hospita reaction 00 l s to drug Ceftriax Propensi Active Itching NPI:1 83 one ty to 10-06 [id number] adverse 00:00: reaction 00 s Prometha Propensi Active Other - See Severe N PI:183 zine ty to comments 11-05 confusion [id number] adverse 00:00: reaction 00 s Eggshell Propensi Active Diarrhea Egg yoke [facility] Membrane ty to 10-08 st adverse 00:00: Hospita reaction 00 l s to drug Eggshell Propensi Active Diarrhea Egg yoke [employer] I:183 Membrane ty to 10-08 [id number] adverse 00:00: reaction 00 s Prometha Propensi Active Other (See Severe Me [facility] zine ty to Comments) 09-[address] adverse 00:00: Hospita reaction 00 l s to drug Shellfis Propensi Active Anaphylaxis M ethodi h ty to 05-05 st Derived adverse 00:00: Hospita reaction 00 l s to drug Shellfis Propensi Active Anaphylaxis N PI:183 h ty to 05-05 [id number] Derived adverse 00:00: reaction 00 s Iodine Propensi Active Anaphylaxis SOB, Met hodi ty to 05-01 wheezing, st adverse 00:00: "my Hospita reaction 00 throat l s to closes drug up."*pt states cannot have topical nor IV Iodine Propensi Active Anaphylaxis NPI :183 ty to 8 [id number] adverse 00:00: reaction 00 s NO KNOWN Allergy Active [facility] ALLERGIE S Phenerga Adverse Active Info Not NPI:1 74 n Reaction Available [id number] 79 Iodine Adverse Active Info Not NPI:174 Reaction Available [id number] Family History Family Member Diagnosis Comments Start Date Stop Date Source Natural father No Known Problems [facility] Natural mother No Known Problems Met [facility] Social History Social Habit Start Date Stop Date Quantity Comments Source History SDOH [facility] Alcohol Frequency Hospita l History SDOH [facility] Alcohol Std Drinks Hospit al History SDOH [facility] Alcohol Binge Hospital Exposure to Not sure NPI:[id number] 1 SARS-CoV-2 (event) Alcohol intake 2021-08-30 2021-08-30 Ex-drinker [facility] 00:00:00 00:00:00 (finding) Hospital Tobacco use and 2019-01-30 2019-01-30 Never used NPI:[id number] exposure 00:00:00 00:00:00 History of tobacco 1979-01-30 2018-08-12 Cigarette Smoker use 00:00:00 00:00:00 Cigarettes smoked 2016-11-22 2016-11-[address] current (pack per 00:00:00 00:00:00 Hospita l day) - Reported Cigarette 2016-11-22 2016-11-22 [facility] pack-years 00:00:00 00:00:00 Hospital Tobacco Comment 2016-09-12 2016-09-12 smokes 5 [facility] 00:00:00 00:00:00 cigarettes per Hospital day Alcohol Comment 2016-05-02 2016-05-02 Former social [facility] 00:00:00 00:00:00 alcohol use, quit Hospita l several years ago; denies history of heavy alcohol use Sex Ass[birth year] [facility] 00:00:00 00:00:00 Hospital Smoking Status Start Date Stop Date Source Never smoker Ex-smoker 2016-11-22 00:00:00 2016-11-22 00:00:00 [facility] Medications Ordered Filled Start Stop Current Ordering Indication Dosage Frequency Signature Comments Components Source Medication Medication Date Date Medication? Clinician (SIG) Name Name estradioL Yes [id number] Apply 1g NPI:183 (ESTRACE) 2-21 vaginally 92604 81 0.01 % (0.1 00:00: at bedtime mg/gram) 00 every vaginal night for cream 2 weeks and then apply 1g vaginally at bedtime 3 times per week (Saturday//) nystatin Yes [id number] Apply to N PI:183 (NYSTOP) 2-21 area(s) 3 [id number] 1 100,000 00:00: (three) unit/gram 00 times powder daily. methylnaltr 0 Yes Take by [employer] I:183 exone 2-16 mouth. [id number] bromide 14:28: (RELISTOR 49 ORAL) potassium 0 Yes Take by NPI: 183 (POTASSIMIN 2-16 mouth once 13 77528 ORAL) 14:28: now. 49 spironolact 0 Yes 100mg Take 100 N PI:183 one 100 mg 2-16 mg by [id number] tablet 14:28: mouth. 49 cyanocobala 0 Yes 1000ug Inject [employer] I:118 min 1-24 1,000 mcg [id number] (VITAMIN 16:29: subcutaneo B-12) 1,000 58 usly every mcg/mL 30 injection (thirty) days. ondansetron 0 Yes 4mg Take 4 mg N PI:118 (ZOFRAN) 4 1-24 by mouth 2 [id number] 2847 MG tablet 16:28: (two) 14 times daily as needed for Nausea. ubrogepant 0 Yes 100mg Take 100 [employer] I:118 (Ubrelvy) 1-24 mg by [id number] 100 mg Tab 16:27: mouth 2 54 (two) times daily as needed. pantoprazol 0 Yes 1{tbl} QD Take 1 [employer] I:118 e 1-24 tablet by [id number] (PROTONIX) 16:27: mouth 40 MG 53 daily. tablet QUEtiapine 0 Yes 1{tbl} QD Take 1 NPI :118 (SEROqueL) 1-24 tablet by [id number] [id number] 50 MG 16:27: mouth tablet 53 nightly. rifAXIMin 2021-0 Yes 1{tbl} Q.5D Take 1 NPI: 118 (Xifaxan) 1-24 tablet [place] [id number] 550 mg Tab 16:27: mouth 2 53 (two) times daily. spironolact 2021-0 Yes 25mg QD Take 25 mg NPI:118 one 1-24 by mouth [id number] (ALDACTONE) 16:27: daily. 50 MG 53 tablet thiamine 2021-0 Yes 1{tbl} QD Take 1 NPI:1 18 100 MG 1-24 tablet by [id number] tablet 16:27: mouth 53 daily. topiramate 2021-0 Yes 1{tbl} QD Take 1 NPI :118 (TOPAMAX) 1-24 [place] [id number] 47 50 MG 16:27: mouth tablet 53 nightly. eszopiclone Yes 2mg Take 2 mg N PI:118 (LUNESTA) 2 1-24 by mouth [id number] MG tablet 16:27: every 52 night as needed. gabapentin Yes 1{capsu Q.5D Take 1 [employer] I:118 (NEURONTIN) 1-24 le} capsule by 46 02144 300 MG 16:27: mouth 2 capsule 52 (two) times daily. lactulose Yes 1{packe Q.[id number] Take 1 NPI:118 (Kristalose 1-24 t} [id number] packet by [id number] ) 20 gram 16:27: 3D mouth 3 packet 52 (three) times daily. azithromyci 2021- No 500mg QD [...] tablet needed for nausea or vomiting. pantoprazol 0 2021- No 40mg QD Take 40 mg [facility] e -15 -[address] (PROTONIX) 18:28: 00:00 daily. Hosp page 40 MG EC 02 :00 l tablet lactulose 2021-2021- No 1{packe Q.25D Take 1 M ethodi (Kristalose 1-14 -14 t} packet by st ) 20 gram 18:28: 00:00 mouth 4 Hosp page packet 50 :00 (four) l times a day. Goal 2-4 bowel movements per day QUEtiapine 2021-0 2022- No 50mg QD Take 50 mg [facility] (SEROqueL) 1-14 01-[address] 50 MG 18:28: 00:00 daily. Hospita tablet 50 :00 l gabapentin 2-0 Yes 300mg Q.5D Take 300 [facility] (NEURONTIN) 1-[address] 300 mg 18:28: mouth 2 Hospita capsule 49 (two) l times a day. Also may take 1 additional dose as needed at bedtime spironolact 2021-0 Yes 50mg QD Take 50 mg [facility] one -[address] (ALDACTONE) 18:28: daily. Hosp page 50 MG 49 l tablet cetirizine 2021-0 Yes 10mg QD Take 10 mg M ethodi (ZyrTEC) 10 -[address] MG tablet 18:28: every Hospita 48 morning. l cyanocobala 2021-0 Yes 1000ug Q30D Inject [facility] min 1,000 1-14 1,[address] mcg/mL 18:28: into the Hospita injection 48 shoulder, l thigh, or buttocks every 30 (thirty) days. riFAXimin 2021-0 Yes 550mg Q.5D Take 550 [facility] (XIFAXAN) 1-[address] 550 mg 18:28: mouth 2 Hospita tablet 48 (two) l times a day. ubrogepant 2-0 Yes 100mg Q.5D Take 100 [facility] (Ubrelvy) 1-[address] 100 mg 18:28: mouth 2 Hospita tablet 48 (two) l times a day as needed (headache) . clonAZEPAM 2-0 Yes .5mg Q24H Take 0.5 Met hodi (KlonoPIN) 1-[address] 0.5 MG 18:28: mouth Hospita tablet 48 daily as l needed for anxiety. [facility] Last filled: 11/06/20 Quantity: 30 Days Supply: 30 topiramate 2-0 Yes 50mg Q.5D Take 50 mg M ethodi (TOPAMAX) 1-[address] 50 MG 18:28: (two) Hospita tablet 48 times a l day. benztropine 2022-0 Yes .25mg Q.5D Take 0.25 [facility] (COGENTIN) 1-[address] 0.5 MG 18:28: mouth 2 Hospita tablet 48 (two) l times a day. primidone Yes 25mg QD Take 25 mg [facility] (MYSOLINE) 1-[address] 50 MG 18:28: nightly. Hospita tablet 48 l eszopiclone Yes 3mg QD Take 3 mg M ethodi (LUNESTA) 3 1-[address] mg tablet 18:28: nightly. Hosp page 48 Per [place] l Prescript[facility] on Drug Monitoring Program records: Last filled: 08/09/21 Quantity: 30 Days Supply: 30 traMADoL Yes 50mg Q4H Take 50 mg [facility] (ULTRAM) 50 -[address] mg tablet 18:28: every 4 Hospi ta 48 (four) l hours as needed for moderate pain. Per [place] Pres[facility] on Drug Monitoring Program records: Last filled: 01/16/21 Quantity: 30 Days Supply: 5 zinc 2021- No 1{capsu QD Take 1 [facility] sulfate -11 09-22 le} capsule by st (ZINCATE) 00:00: 05:59 mouth Hospit a 50 mg zinc 00 :00 daily for l (220 mg) 30 days. capsule thiamine 2021- No 100mg QD Take 100 Met [facility] mononitrate 10 -[address] , vit B1, 10:29: 00:00 mouth Hospit a (B-1) 100 47 :00 daily. l mg tablet QUEtiapine 2021- No 50mg QD Take 50 mg [facility] (SEROquel) 1-10 -[address] 200 MG 10:29: 00:00 nightly. Hospit a tablet 47 :00 l SUMAtriptan Yes [id number] 50mg Q24H Take 1 [facility] (Imitrex) 1-10 tablet (50 st 50 MG 00:00: mg total) Hospita tablet 00 by mouth l daily as needed for migraine for up to 30 doses. May repeat in 2 hours if unresolved . Max dose 200 mg/day escitalopra 2021- No 10mg QD Take 1 Met [facility] m (LEXAPRO) 08-21 tablet (10 s t 10 MG 00:00: 05:59 mg total) Hospit a tablet 00 :00 by mouth l nightly for 30 days. pantoprazol 2021- No [id number] 40mg QD Take 1 Method[facility] e 08-21 tablet (40 st (PROTONIX) 00:00: 05:59 mg total) H ospita 40 MG EC 00 :00 by mouth l tablet every morning for 30 days. QUEtiapine No 50mg QD [...] tablet mouth daily for 30 days. lactulose No 20g Q.25D Take 1 Meth erasto (Kristalose 08-21 packet (20 s t ) 20 gram 00:00: 05:59 g total) Hos lis packet 00 :00 by mouth 4 l (four) times a day for 30 days. SUMAtriptan 2021- No TAKE AT Me [facility] (IMITREX) 08-[address] 100 MG 09:56: 00:00 HEADACHE. Hospi ta tablet 24 :00 MAY REPEAT l IN 2 HOURS IF NO RELIEF. MAXIMUM OF 2 IN 24 HOURS. Oral furosemide 2021- No 20mg Take 20 mg [facility] (LASIX) 20 08-[address] mg tablet 09:53: 00:00 Hospita 21 :00 l escitalopra No 10mg Take 10 mg [facility] m (LEXAPRO) 08-[address] 10 MG 09:53: 00:00 Hospita tablet 08 :00 l cyanocobala 2021- No 1000ug Take 1,000 [facility] min 08-[address] (VITAMIN 09:52: 00:00 mouth. Hospit a B-12) 1000 53 :00 l MCG tablet benztropine No 1 tablet M ethodi (COGENTIN) 08-[address] 0.5 MG 09:52: 00:00 Orally Hospita tablet 26 :00 Once a day l nitrofurant 2020-08- No 100mg Q.5D Take 1 [facility] oin, 08-[address] macrocrysta 00:00: 00:00 (100 mg Ho spita l-monohydra 00 :00 total) by l te, mouth 2 (MACROBID) (two) 100 MG times a capsule day for 5 days. eszopiclone 2020-08 No 3mg QD Take 3 mg [facility] (LUNESTA) 3 0-22 10-[address] mg tablet 14:16: 00:00 nightly. Hos lis 40 :00 Take l immediatel y before bedtime eszopiclone 2020-08 No 1mg QD Take 1 Met [facility]odi (LUNESTA) 1 0-22 11-22 tablet (1 st MG tablet 00:00: 05:59 mg total) Ho spita 00 :00 by mouth l nightly for 30 days. Take immediatel y before bedtime ondansetron 2020-08 Metho di (ZOFRAN) 4 0-04 -08 st MG tablet 00:00: 00:00 Hospita 00 :00 l zinc No 220mg QD Take 1 [facility] sulfate 3-15 04-[address] (ZINCATE) 00:00: 04:59 (220 mg Hosp page 220 (50) mg 00 :00 total) by l capsule mouth daily for 30 days. methylPREDN 2020- No follow Met hodi ISolone 10-09-[address] (MEDROL 00:00: 05:59 directions Hos lis DOSEPAK) 4 00 :00 l mg tablet ibuprofen 2020- No 400mg Q8H Take 1 Meth erasto (ADVIL) 400 10-09-[address] MG tablet 00:00: 05:59 (400 mg Hosp page 00 :00 total) by l mouth every 8 (eight) hours as needed for moderate pain, fever or headaches for up to 5 days. zinc No 220mg QD Take 1 [facility] sulfate 09-22 03-[address] (ZINCATE) 00:00: 00:00 (220 mg Hosp page 220 (50) mg 00 :00 total) by l capsule mouth daily for 30 days. eszopiclone No 1mg QD Take 1 mg [facility] (LUNESTA) 1 09-[address] MG tablet 14:27: 00:00 nightly. Hos lis 44 :00 Take l immediatel y before bedtime topiramate No 50mg QD Take 1 Meth erasto (TOPAMAX) 09-02 tablet (50 st 50 MG 00:00: 00:00 mg total) Hospit a tablet 00 :00 by mouth l daily. furosemide No 20mg QD Take 1 Meth erasto (LASIX) 20 08-13 tablet (20 st mg tablet 00:00: 00:00 mg total) Ho spita 00 :00 by mouth l daily for 30 days. escitalopra 10mg QD Take 1 Met [facility]odi m (LEXAPRO) 08-13 tablet (10 s t 10 MG 00:00: 00:00 mg total) Hospit a tablet 00 :00 by mouth l nightly. primidone No 25mg QD Take 0.5 Met [facility]odi (MYSOLINE) 08-[address] 50 MG 00:00: 00:00 (25 mg Hospita tablet 00 :00 total) by l mouth nightly. May cut tablet in 1/2 half brexpiprazo 2mg QD Take 1 Met [facility] le [...] l tablet daily for 30 days. lactulose 2021- No 20g Q.25D Take 1 Meth erasto (Kristalose 04-21 packet (20 s t ) 20 gram 00:00: 00:00 g total) Hos lis packet 00 :00 by mouth 4 l (four) times a day for 30 days. gabapentin No 300mg Q.[id number] Take 1 [facility] (NEURONTIN) 04-[id number] 300 mg 00:00: 00:00 3D (300 mg Hospita capsule 00 :00 total) by l mouth 3 (three) times a day for 30 days. pantoprazol No [id number] 40mg QD Take 1 Method[facility] e 01-24 tablet (40 st (PROTONIX) 00:00: 00:00 mg total) H ospita 40 MG EC 00 :00 by mouth l tablet every morning. SUMAtriptan No [id number] 50mg Q24H Take 1 [facility] (Imitrex) 01-24 tablet (50 st 50 MG 00:00: 00:00 mg total) Hospit a tablet 00 :00 by mouth l daily as needed for migraine for up to 30 doses. May repeat in 2 hours if unresolved . Max dose 200 mg/day eszopiclone Yes 2mg Take 2 mg N PI:183 2 mg tablet 03-09 by mouth [id number] 781 16:42: at 13 bedtime. GABAPENTIN 2018- Yes Take by NPI :183 ORAL - mouth. [id number] 16:42: 13 traMADOL 50 2018- Yes 50mg Take 50 mg NPI:183 mg tablet -29 by mouth [id number] 1 16:42: as needed 13 for Pain (scale 7-10). lactulose Yes [id number] 20g Take 1 [employer] I:183 (KRISTALOSE - Packet by 131 8781 ) 20 gram 00:00: mouth 3 packet 00 (three) times daily. ondansetron Yes [id number] 8mg Take 2 NPI:183 4 mg tablet 4-01 tablets by 81 00:00: mouth 00 every 8 (eight) hours as needed for Nausea and Vomiting (N/V). butalbital- Yes [id number] 1{capsu Take 1 NPI:183 aspirin-caf 3-25 le} capsule by feine 00:00: mouth 50-325-40 00 every 4 mg per (four) capsule hours as needed for Pain (headache unrelieved wtih other medication s). XIFAXAN 550 2016-08 Yes [id number] TAKE ONE NPI:183 mg tablet 1-27 [place] [id number] 81 00:00: MOUTH 2 00 TIMES A DAY PANTOPRAZOL 2016-08 Yes [id number] TAKE ONE NPI:183 E 40 mg EC 1-27 TABLET BY [id number] 781 tablet 00:00: MOUTH 00 EVERY DAY acetaminoph Yes 1{tbl} Take 1 [employer] I:183 en-codeine 3-27 tablet by 1318 781 (TYLENOL-CO 00:00: mouth DEINE #3) 00 every 4 300-30 mg (four) tablet hours as needed for Pain (scale 4-6) or Pain (scale 7-10). cyclobenzap Yes 10mg Take 1 NPI: 183 rine 10 mg 3-27 tablet by 1318 781 tablet 00:00: mouth 3 00 (three) times daily. furosemide 2015-08 Yes 40mg Take 40 mg N PI:183 40 mg 0-10 by mouth. [id number] tablet 00:00: 00 Allopurinol Allopurinol Yes Fernando 2 tablets NPI:174 Díaz [id number] Immunizations Ordered Immunization Filled Immunization Date Status Commen ts Source Name Name Influenza Virus 2021-04-12 Completed NPI:[id number] Vaccine 00:00:00 SARS-COV-2 COVID-19 2020-12-14 Completed NPI:1 [id number] YANIRA/J&J VACCINE 00:00:00 Influenza (IM) 2018-04-21 Completed [facility] Preservative Free 00:00:00 Hospita l Influenza Virus 2018-04-21 Completed NPI:[id number] Vaccine (3+ yrs) 00:00:00 Pneumococcal 2016-05-08 Completed [facility] Conjugate 13-Valent 00:00:00 Hospi mateo FLUCELVAX QUAD PF 2016-05-[address] 00:00:00 Hospital Pneumococcal 13 2016-05-08 Completed NPI:[id number] Conjugate, PCV13 00:00:00 (Prevnar 13) Vital Signs Vital Name Observation Time Observation Value Comments Source Systolic blood 2021-11-16 18:59:00 111 mm[Hg] NPI:18 [id number] pressure Diastolic blood 2021-11-16 18:59:00 74 mm[Hg] NPI:1 [id number] pressure Heart rate 2021-11-16 18:59:00 75 /min NPI:1831 [id number] Body temperature 2021-11-16 18:59:00 36.67 Georgette Body height 2021-11-16 18:59:00 149.9 cm NPI:1831 [id number] Body weight 2021-11-16 18:59:00 80.559 kg NPI:1831 [id number] BMI 2021-11-16 18:59:00 35.87 kg/m2 NPI:1831 [id number] HEIGHT 2021-09-02 15:44:00 149.9 cm WEIGHT 2021-09-02 15:44:00 87.091 kg HEIGHT 2021-09-02 15:44:00 149.9 cm WEIGHT 2021-09-02 15:44:00 87.091 kg Systolic blood 2021-09-11 19:42:00 125 mm[Hg] NPI:11 [id number] pressure Diastolic blood 2021-09-11 19:42:00 60 mm[Hg] NPI:1 [id number] pressure Heart rate 2021-09-11 19:42:00 98 /min NPI:1184 [id number] Body temperature 2021-09-11 19:42:00 35.67 Georgette Respiratory rate 2021-09-11 19:42:00 18 /min Oxygen saturation in 2021-09-11 19:42:00 100 /min Arterial blood by Pulse oximetry Body height 2021-09-02 15:44:00 149.9 cm NPI:1184 [id number] Body weight 2021-09-02 15:44:00 87.091 kg NPI:1184 [id number] BMI 2021-09-02 15:44:00 38.78 kg/m2 NPI:1184 [id number] Systolic blood 2021-08-31 06:30:00 119 mm[Hg] [facility] pressure Diastolic blood 2021-08-31 06:30:00 68 mm[Hg] [facility] pressure Heart rate 2021-08-31 06:30:00 70 /min [facility] Respiratory rate 2021-08-31 06:30:00 16 /min [facility] Oxygen saturation in 2021-08-31 06:30:00 97 /min [facility] Arterial blood by Pulse oximetry Body temperature 2021-08-31 04:04:09 36.83 Georgette [facility] Body height 2021-08-31 04:04:00 149.9 cm [facility] Body weight 2021-08-31 04:04:00 89.359 kg [facility] BMI 2021-08-31 04:04:00 39.79 kg/m2 [facility] Procedures Procedure Date / Time Performing Clinician Source Performed HEPATIC FUNCTION PANEL 2021-09-11 05:33:00 Niya Cartagena CBC W/PLT COUNT & AUTO 2021-09-11 05:33:00 Niya Cartagena DIFFERENTIAL PROTHROMBIN TIME/INR 2021-09-11 05:33:00 Niya Cartagena [employer] I:[id number] BASIC METABOLIC PANEL (7) 2021-09-11 05:33:00 Niya Cartagena on MAGNESIUM 2021-09-11 05:33:00 Selma Lu NPI:799 [id number] CBC W/PLT COUNT & AUTO 2021-09-11 05:33:00 Niya Cartagena DIFFERENTIAL HEPATIC FUNCTION PANEL 2021-09-10 06:52:00 Niya Cartagena CBC W/PLT COUNT & AUTO 2021-09-10 06:52:00 Niya Cartagenaison DIFFERENTIAL PROTHROMBIN TIME/INR 2021-09-10 06:52:00 Niya Cartagena [employer] I:[id number] BASIC METABOLIC PANEL (7) 2021-09-10 06:52:00 Niya Cartagena on MAGNESIUM 2021-09-10 06:52:00 Selma Lu NPI:496 [id number] CBC W/PLT COUNT & AUTO 2021-09-10 06:52:00 Niya Cartagenaison DIFFERENTIAL HEPATIC FUNCTION PANEL 2021-09-09 05:51:00 Niya Cartagena CBC W/PLT COUNT & AUTO 2021-09-09 05:51:00 Niya Cartagenaison DIFFERENTIAL PROTHROMBIN TIME/INR 2021-09-09 05:51:00 Niya Cartagena [employer] I:[id number] BASIC METABOLIC PANEL (7) 2021-09-09 05:51:00 Niya Cartagena on CBC W/PLT COUNT & AUTO 2021-09-09 05:51:00 Niya Cartagena DIFFERENTIAL (CELLAVISION MANUAL DIFF) 2021-09-09 05:51:00 Niya Cartagena on AMMONIA 2021-09-08 10:54:00 Selma Lu NPI:964 [id number] PHOSPHORUS 2021-09-08 05:14:00 Zara Mason NPI:1184 [id number] Elva HEPATIC FUNCTION PANEL 2021-09-08 05:14:00 Niya Cartagena CBC W/PLT COUNT & AUTO 2021-09-08 05:14:00 Niya Cartagenaison DIFFERENTIAL PROTHROMBIN TIME/INR 2021-09-08 05:14:00 KaNiya rmison [employer] I:[id number] BASIC METABOLIC PANEL (7) 2021-09-08 05:14:00 Niya Cartagena on CBC W/PLT COUNT & AUTO 2021-09-08 05:14:00 Niya Cartagena DIFFERENTIAL (CELLAVISION MANUAL DIFF) 2021-09-08 05:14:00 Niya Cartagena on PHOSPHORUS 2021-09-07 05:37:00 Isabella Juveini NPI:1184 [id number] Zade HEPATIC FUNCTION PANEL 2021-09-07 05:37:00 Niya Cartagena CBC W/PLT COUNT & AUTO 2021-09-07 05:37:00 Niya Cartagena DIFFERENTIAL PROTHROMBIN TIME/INR 2021-09-07 05:37:00 Niya Cartagena [employer] I:[id number] BASIC METABOLIC PANEL (7) 2021-09-07 05:37:00 Niya Cartagena on CBC W/PLT COUNT & AUTO 2021-09-07 05:37:00 Niya [place] DIFFERENTIAL (CELLAVISION MANUAL DIFF) 2021-09-07 05:37:00 Niya Cartagena on PROTHROMBIN TIME/INR 2021-09-06 06:37:00 Niya [place]agena [employer] I:[id number] BASIC METABOLIC PANEL (7) 2021-09-06 06:37:00 Juve Masonin i Zade PHOSPHORUS 2021-09-06 06:37:00 Juve Masonini NPI:[id number] Zade PHOSPHORUS 2021-09-05 14:31:00 Juve Masonini NPI:[id number] Zade CBC W/PLT COUNT & AUTO 2021-09-05 14:31:00 Zara Mason N PI:[id number] DIFFERENTIAL Zade HEPATIC FUNCTION PANEL 2021-09-05 14:31:00 Zara Mason PI:[id number] Zaedis CBC W/PLT COUNT & AUTO 2021-09-05 14:31:00 Zara Mason PI:[id number] DIFFERENTIAL Zaedis (CELLAVISION MANUAL DIFF) 2021-09-05 14:31:00 Gianna Masonnalin i Zaedis PROTHROMBIN TIME/INR 2021-09-05 14:31:00 Niya [place] [employer] I:[id number] BASIC METABOLIC PANEL (7) 2021-09-05 14:31:00 Gianna Masonnalin i Elva C. DIFFICILE GDH TOXIN 2021-09-04 11:52:00 Jaqueline Vitale NPI :[id number] CT ABDOMEN/PELVIS WITH IV 2021-09-04 09:03:00 Mirian Goodman mar CONTRAST CT CHEST WITH IV CONTRAST 2021-09-04 09:03:00 Juve Masonin i Elva CBC W/PLT COUNT & AUTO 2021-09-04 04:39:00 Lucia Lawrence DIFFERENTIAL COMPREHENSIVE METABOLIC 2021-09-04 04:39:00 Lucia Lawrence PANEL MAGNESIUM 2021-09-04 04:39:00 Lucia Lawrence NPI:[id number] PHOSPHORUS 2021-09-04 04:39:00 Lucia Lawrence NPI:[id number] CBC W/PLT COUNT & AUTO 2021-09-04 04:39:00 Lucia Lawrence DIFFERENTIAL (CELLAVISION MANUAL DIFF) 2021-09-04 04:39:00 Lucia Lawrence sa HEPATITIS A ANTIBODY, IGG 2021-09-03 12:02:00 Gianna Masonnalin i Elva HEPATITIS B CORE ANTIBODY, 2021-09-03 12:02:00 Laura Mason ni TOTAL Zaedis HEPATITIS B SURFACE 2021-09-03 12:02:00 Zara Mason ANTIBODY Zaedis HEPATITIS B SURFACE 2021-09-03 12:02:00 Zara Mason ANTIGEN Zaedis HEPATITIS C ANTIBODY 2021-09-03 12:02:00 Zara Mason NPI :[id number] Zaedis CBC W/PLT COUNT & AUTO 2021-09-03 12:01:00 Lucia Lawrence DIFFERENTIAL COMPREHENSIVE METABOLIC 2021-09-03 12:01:00 Lucia Lawrence PANEL MAGNESIUM 2021-09-03 12:01:00 Lucia Lawrence NPI:[id number] PHOSPHORUS 2021-09-03 12:01:00 Lucia Lawrence NPI:[id number] PROTHROMBIN TIME/INR 2021-09-03 12:01:00 Jr White NPI:[id number] Depamaylo CBC W/PLT COUNT & AUTO 2021-09-03 12:01:00 Lucia Lawrence DIFFERENTIAL (CELLAVISION MANUAL DIFF) 2021-09-03 12:01:00 Lucia Lawrence sa BLOOD CULTURE 2021-09-03 11:59:00 Lucia Lawrence NPI:[id number] OVA AND PARASITE 2021-09-02 09:44:00 Troy Awad Ismail NPI:[id number] EXAMINATION GI PATHOGEN PROFILE BY PCR 2021-09-02 09:44:00 Troy Awad Bladimir il BLOOD CULTURE 2021-09-02 06:03:00 Lucia Lawrence NPI:[id number] CBC W/PLT COUNT & AUTO 2021-09-02 06:03:00 Lucia Lawrence DIFFERENTIAL COMPREHENSIVE METABOLIC 2021-09-02 06:03:00 Lucia Lawrence PANEL MAGNESIUM 2021-09-02 06:03:00 Lucia Lawrence NPI:[id number] PHOSPHORUS 2021-09-02 06:03:00 Lucia Lawrence NPI:[id number] C-REACTIVE PROTEIN 2021-09-02 06:03:00 Lucia Lawrence CBC W/PLT COUNT & AUTO 2021-09-02 06:03:00 Lucia Lawrence DIFFERENTIAL (CELLAVISION MANUAL DIFF) 2021-09-02 06:03:00 LawrenceLucianafisa stacy IRON, TIBC, % SAT. 2021-09-02 06:01:00 Lucia Lawrencea (WITHOUT FERRITIN) VITAMIN B12 AND FOLATE 2021-09-02 06:01:[address] BRAIN WITHOUT IV 2021-09-02 02:39:00 LawrenceLloydbrendon Delaney NPI :[id number] CONTRAST US ABDOMEN LIMITED 2021-09-02 02:09:00 Lucia Lawrencea URINE CULTURE 2021-09-02 01:29:00 Lucia Lawrencea NPI:[id number] URINALYSIS W/ REFLEX URINE 2021-09-02 01:29:00 Lucia Lawrence halie CULTURE XR CHEST 1 VIEW PORTABLE / 2021-09-02 01:02:00 LawrenceLucia Alcides ambrose BEDSIDE CBC W/PLT COUNT & AUTO 2021-09-01 22:55:00 Lucia Lawrencea DIFFERENTIAL LACTIC ACID, VENOUS 2021-09-01 22:55:00 Lucia Lawrencea NPI :[id number] PT/APTT 2021-09-01 22:55:00 KyleLloyda Elaina NPI:[id number] HEPATIC FUNCTION PANEL 2021-09-01 22:55:00 LawrenceLloyda Elaina BASIC METABOLIC PANEL (7) 2021-09-01 22:55:00 Lucia Lawrence sa MAGNESIUM 2021-09-01 22:55:00 Lucia Lawrence NPI:[id number] PHOSPHORUS 2021-09-01 22:55:00 Lucia Lawrence NPI:[id number] CBC W/PLT COUNT & AUTO 2021-09-01 22:55:00 Lucia Lawrence DIFFERENTIAL (CELLAVISION MANUAL DIFF) 2021-09-01 22:55:00 Lucia Lawrence sa POCT-GLUCOSE METER 2021-09-01 22:36:00 Dawna Anguiano NPI:[id number] ABDOMEN PELVIS WO 2021-08-31 05:50:00 [facility] CONTRAST [facility] HC COMPLETE BLD COUNT 2021-08-31 04:21:00 [facility] W[facility] DIFF [facility] COMPREHENSIVE METABOLIC 2021-08-31 04:21:00 [facility] PANEL [facility] LACTIC ACID, I-STAT 2021-08-31 04:21:00 [facility] ESTIMATED GFR 2021-08-31 04:21:00 [facility] SPIROMETRY, DIFFUSION, 2021-08-25 19:27:26 [facility] LUNG VOLUMES, MIPS/MEPS XR CHEST 2 VW 2021-08-25 18:00:20 [facility] XR PANOREX 2021-08-25 17:59:56 [facility] POC GLUCOSE 2021-08-25 13:51:00 [facility] spital SALEEM-POSEY VIRUS 2021-08-25 11:08:00 [facility] ANTIBODY TEST HC COMPLETE BLD COUNT 2021-08-25 11:08:00 [facility] W/AUTO DIFF COMPREHENSIVE METABOLIC 2021-08-25 11:08:00 [facility] PANEL PROTHROMBIN TIME WITH INR 2021-08-25 11:08:00 Jennifer Ghosh [facility] ESTIMATED GFR 2021-08-25 11:08:00 Jennifer Ghosh spital POC GLUCOSE 2021-08-25 03:18:00 Jennifer Ghosh spital POC GLUCOSE 2021-08-25 00:22:00 Jennifer Ghosh spital POC GLUCOSE 2021-08-24 19:43:00 Jennifer Ghoshtal CREATININE LEVEL, URINE, 2021-08-24 18:13:00 Jennifer Ghosh [facility] TIMED PROTEIN, URINE, TIMED 2021-08-24 18:13:00 Jennifer Ghosh [facility] CV SELECTIVE CORONARY 2021-08-24 16:44:00 Sri [facility] ANGIOGRAPHY [place] HC COMPLETE BLD COUNT 2021-08-24 11:01:00 [facility] BASIC METABOLIC PANEL 2021-08-24 11:01:00 [facility] HEPATIC FUNCTION PANEL 2021-08-24 11:01:00 [facility] MAGNESIUM LEVEL 2021-08-24 11:01:00 Alma Girard PROTHROMBIN TIME WITH INR 2021-08-24 11:01:00 [facility] [place] ESTIMATED GFR 2021-08-24 11:01:00 Alma Girard [place] POC GLUCOSE 2021-08-24 03:07:00 Jennifer Ghosh spital POC GLUCOSE 2021-08-24 00:11:00 Jennifer Ghosh COVID-19 QUALITATIVE 2021-08-23 22:15:00 Dayo Moeller [facility] RT-PCR POC GLUCOSE 2021-08-23 19:17:00 Jennifer Ghosh spital POC GLUCOSE 2021-08-23 14:05:00 Jennifer Ghoshtal HC COMPLETE BLD COUNT 2021-08-23 11:49:00 [facility] W[facility]AUT[facility] DIFF [place] BASIC METABOLIC PANEL 2021-08-23 11:49:00 [facility] HEPATIC FUNCTION PANEL 2021-08-23 11:49:00 [facility] MAGNESIUM LEVEL 2021-08-23 11:49:00 [facility]Pro[facility] HospitalgasJayeshJehovah'S Witness [facility] PROTHROMBIN TIME WITH INR 2021-08-23 11:49:00 [facility] ALPHA FETOPROTEIN 2021-08-23 11:49:00 [facility] ALPHA-1 ANTITRYPSIN LEVEL 2021-08-23 11:49:00 [facility] ANTI SMOOTH MUSCLE AB 2021-08-23 11:49:00 [facility] SCREEN C-REACTIVE PROTEIN 2021-08-23 11:49:00 [facility] CANCER ANTIGEN 125 2021-08-23 11:49:00 [facility] CANCER ANTIGEN 19-9 2021-08-23 11:49:00 [facility] CARCINOEMBRYONIC ANTIGEN 2021-08-23 11:49:00 [facility] (CEA) CERULOPLASMIN LEVEL 2021-08-23 11:49:00 [facility] CORTISOL LEVEL, RANDOM 2021-08-23 11:49:00 [facility] CORTISOL, FREE BY 2021-08-23 11:49:00 [facility] ED/LC-MS/MS CYTOMEGALOVIRUS AB, IGG 2021-08-23 11:49:00 [facility] CYTOMEGALOVIRUS AB, IGM 2021-08-23 11:49:00 [facility] DRUG KIM 9, SER/THAIS, SCRN 2021-08-23 11:49:00 [facility] W/RFLX TO CONF FERRITIN LEVEL 2021-08-23 11:49:00 [facility] FIBRINOGEN 2021-08-23 11:49:00 [facility] HEPATITIS A ANTIBODY IGM 2021-08-23 11:49:00 [facility] HEPATITIS A ANTIBODY TOTAL 2021-08-23 11:49:00 [facility] HEPATITIS B CORE ANTIBODY 2021-08-23 11:49:00 [facility] TOTAL HEPATITIS B SURFACE 2021-08-23 11:49:00 [facility] ANTIBODY HEPATITIS B SURFACE 2021-08-23 11:49:00 [facility] ANTIGEN HEPATITIS C ANTIBODY 2021-08-23 11:49:00 [facility] HIV AG/AB COMBINATION 2021-08-23 11:49:00 [facility] HIV-1 RNA, QUALITATIVE TMA 2021-08-23 11:49:00 [facility] HLA TRANSPLANT EVALUATION 2021-08-23 11:49:00 [facility] LIPID PANEL 2021-08-23 11:49:00 [facility] BARBITURATES, S/P, QUANT 2021-08-23 11:49:00 [facility] PARTIAL THROMBOPLASTIN 2021-08-23 11:49:00 [facility] TIME (PTT) PHOSPHATIDYLETHANOL, BLOOD 2021-08-23 11:49:00 [facility] PHOSPHORUS LEVEL 2021-08-23 11:49:00 [facility] PREALBUMIN LEVEL 2021-08-23 11:49:00 [facility] SERUM ELECTROPHORESIS 2021-08-23 11:49:00 [facility] SYPHILIS TREPONEMA SCREEN 2021-08-23 11:49:00 [facility] WITH RPR CONFIRMATION (REVERSE ALGORITHM) T3, FREE 2021-08-23 11:49:00 [facility] TB T-SPOT 2021-08-23 11:49:00 [facility] TOTAL IRON BINDING 2021-08-23 11:49:00 [facility] CAPACITY ZINC LEVEL, SERUM 2021-08-23 11:49:00 [facility] ESTIMATED GFR 2021-08-23 11:49:00 Alma Girard SINGLE ANTIGEN BEADS 2021-08-23 11:49:00 [facility] C1Q CLASS 1 & 2 ANTIBODY 2021-08-23 11:49:[address] [facility] [address] CHEST WO CONTRAST 2021-08-23 04:25:00 [facility] POC GLUCOSE 2021-08-23 02:55:00 Jennifer Ghosh US CAROTID DUPLEX 2021-08-23 02:40:00 [facility] BILATERAL TTE COMPLETE, WO CONTRAST, 2021-08-22 23:47:00 [facility] W AGITATED SALINE ([id number]) US ABDOMEN COMPLETE 2021-08-22 22:30:00 [facility] ECG 12-LEAD 2021-08-22 21:31:09 [facility] POC GLUCOSE 2021-08-22 13:43:00 Jennifer Ghosh HC COMPLETE BLD COUNT 2021-08-22 10:59:00 [facility] W/AUTO DIFF [place] BASIC METABOLIC PANEL 2021-08-22 10:59:00 [facility] HEPATIC FUNCTION PANEL 2021-08-22 10:59:00 [facility] [place] MAGNESIUM LEVEL 2021-08-22 10:59:00 Alma Girard PHOSPHORUS LEVEL 2021-08-22 10:59:00 Alma Girard PROTHROMBIN TIME WITH INR 2021-08-22 10:59:00 [facility] [place] ESTIMATED GFR 2021-08-22 10:59:00 Alma Girard POC GLUCOSE 2021-08-22 03:06:00 Jennifer Ghosh Ho spital POC GLUCOSE 2021-08-22 00:27:00 Jennifer Ghosh Ho spital POC GLUCOSE 2021-08-21 19:09:00 Jennifer Ghosh Ho spital POC GLUCOSE 2021-08-21 13:46:00 Alma Girard Ho spital [place] HC COMPLETE BLD COUNT 2021-08-21 10:56:00 Ting Pierson [facility] W/AUTO DIFF [facility] BASIC METABOLIC PANEL 2021-08-21 10:56:[address] [facility] HEPATIC FUNCTION PANEL 2021-08-21 10:56:00 [facility] MAGNESIUM LEVEL 2021-08-21 10:56:00 Alma Girard spital [place] PHOSPHORUS LEVEL 2021-08-21 10:56:00 Alma Girard H ospital [place] PROTHROMBIN TIME WITH INR 2021-08-21 10:56:00 [facility] 2021-08-21 10:56:00 Alma Girard spital [place] POC GLUCOSE 2021-08-21 03:20:00 Alma Girard spital [place] POC GLUCOSE 2021-08-20 14:56:00 Jennifer Ghosh spital HC COMPLETE BLD COUNT 2021-08-20 10:57:00 Ting Pierson [facility] BASIC METABOLIC PANEL 2021-08-20 10:57:[address] [facility] HEPATIC FUNCTION PANEL 2021-08-20 10:57:00 [facility] MAGNESIUM LEVEL 2021-08-20 10:57:00 Alma Girard Ho spital [place] PHOSPHORUS LEVEL 2021-08-20 10:57:00 Alma Girard H ospital [place] PROTHROMBIN TIME WITH INR 2021-08-20 10:57:00 [facility] ESTIM[facility] 2021-08-20 10:57:00 Alma Girard spital [place] POC GLUCOSE 2021-08-20 02:42:00 Alma Girard spital [place] POC GLUCOSE 2021-08-19 20:04:00 Alma Girard spital [place] HC COMPLETE BLD COUNT 2021-08-19 11:38:00 Ting Pierson [facility] W/AUTO DIFF [facility] BASIC METABOLIC PANEL 2021-08-19 11:38:[address] [facility] HEPATIC FUNCTION PANEL 2021-08-19 11:38:00 Ting Pierson [facility] MAGNESIUM LEVEL 2021-08-19 11:38:00 Alma Girard PHOSPHORUS LEVEL 2021-08-19 11:38:00 Alma Girard ospimateo Self PROTHROMBIN TIME WITH INR 2021-08-19 11:38:00 Ting Pierson [facility] [place] ESTIMATED GFR 2021-08-19 11:38:00 Alma Girard spital [place] POC GLUCOSE 2021-08-19 03:14:00 Alma Girard spital [place] POC GLUCOSE 2021-08-18 23:30:00 Alma Girard spital [place] POC GLUCOSE 2021-08-18 15:37:00 Alma Girard spital [place] URINE CULTURE 2021-08-18 12:53:00 Alma Girard URINALYSIS SCREEN AND 2021-08-18 11:31:00 [facility] MICROSCOPY, WITH REFLEX TO [place] CULTURE LACTIC ACID LEVEL, SEPSIS 2021-08-18 10:21:00 Orlando Balderrama [facility] - NOW AND REPEAT 2X EVERY 3 HOURS HC COMPLETE BLD COUNT 2021-08-18 10:21:00 Ting Pierson [facility] W/AUTO DIFF [facility] BASIC METABOLIC PANEL 2021-08-18 10:21:00 [facility] FUNCTION PANEL 2021-08-18 10:21:00 [facility] MAGNESIUM LEVEL 2021-08-18 10:21:00 [facility] PHOSPHORUS LEVEL 2021-08-18 10:21:00 Ting Alma Pierson H ospital [place] PROTHROMBIN TIME WITH INR 2021-08-18 10:21:00 [facility] [place] ESTIMATED GFR 2021-08-18 10:21:00 [facility] Alma Pierson [facility] LACTIC ACID LEVEL, SEPSIS 2021-08-18 07:56:00 [facility] - NOW AND REPEAT 2X EVERY 3 HOURS BLOOD CULTURE, AEROBIC & 2021-08-18 05:00:00 [facility] ANAEROBIC [place] ECG 12-LEAD 2021-08-18 04:24:[address] [facility] [address] ABDOMEN PELVIS WO 2021-08-18 04:19:03 [facility] CONTRAST CT HEAD WO CONTRAST 2021-08-18 04:18:21 [facility] LACTIC ACID LEVEL, SEPSIS 2021-08-18 03:37:00 [facility] - NOW AND REPEAT 2X EVERY 3 HOURS B NATRIURETIC PEPTIDE 2021-08-18 03:37:00 [facility] PROTHROMBIN TIME WITH INR 2021-08-18 03:20:00 [facility] AMMONIA LEVEL 2021-08-18 03:20:00 [facility] TROPONIN T 2021-08-18 03:20:00 [facility] XR CHEST 1 VW PORTABLE 2021-08-18 03:14:19 [facility] HC COMPLETE BLD COUNT 2021-08-18 03:03:00 [facility] W/AUTO DIFF COMPREHENSIVE METABOLIC 2021-08-18 03:03:00 [facility] PANEL ESTIMATED GFR 2021-08-18 03:03:00 [facility] RESPIRATORY PATHOGEN PANEL 2021-08-18 03:03:00 [facility] WITH COVID-19 RT-PCR ECG ED PRELIMINARY 2021-08-18 02:54:33 [facility] INTERPRETATION COVID-19 QUALITATIVE 2021-08-11 05:31:00 [facility] RT-PCR [facility] COMPREHENSIVE METABOLIC 2021-08-11 05:30:00 [facility] PANEL [facility] HC COMPLETE BLD COUNT 2021-08-11 05:30:00 [facility] W/AUTO DIFF [facility] LACTIC ACID, I-STAT 2021-08-11 05:30:00 [facility] ESTIMATED GFR 2021-08-11 05:30:00 [facility] ECG 12-LEAD 2021-08-11 05:15:35 [facility] URINALYSIS 2021-08-11 05:00:00 [facility] XR CHEST 1 VW PORTABLE 2021-08-11 04:27:00 [facility] LACTIC ACID, I-STAT 2021-06-28 22:37:00 [facility] 2021-06-28 21:45:00 Romero Limon Ho spital HC COMPLETE BLD COUNT 2021-06-28 20:01:00 Romero Limon [facility] W/AUTO DIFF PROTHROMBIN TIME WITH INR, 2021-06-28 20:01:00 Romero Limon [facility] I-STAT COMPREHENSIVE METABOLIC 2021-06-28 20:01:00 Romero Limon [facility] PANEL LACTIC ACID, I-STAT 2021-06-28 20:01:00 [facility] SEDIMENTATION RATE 2021-06-28 20:01:00 Romero Limon [facility] ESTIMATED GFR 2021-06-28 20:01:00 [facility] QUALITATIVE 2021-06-28 20:01:00 Romero Limon [facility] RT-PCR BLOOD CULTURE, AEROBIC & 2021-06-28 20:01:00 Romero Limon [facility] ANAEROBIC HC COMPLETE BLD COUNT 2021-06-21 11:20:00 Dinakar, [facility] W/AUTO DIFF [facility] BASIC METABOLIC PANEL 2021-06-21 11:20:00 Dinakar, [facility] HEPATIC FUNCTION PANEL 2021-06-21 11:20:00 Dinakar, [facility] MAGNESIUM LEVEL 2021-06-21 11:20:00 Dinakar, [facility] PROTHROMBIN TIME WITH INR 2021-06-21 11:20:00 Dinakar, [facility] PHOSPHORUS LEVEL 2021-06-21 11:20:00 Dinakar, [facility] ospital [facility] ESTIMATED GFR 2021-06-21 11:20:00 Dinakar, [facility] PHOSPHATIDYLETHANOL, BLOOD 2021-06-21 11:20:00 [facility] URINE DRUGS OF ABUSE 2021-06-21 10:11:00 [facility] SCREEN URINALYSIS SCREEN AND 2021-06-21 10:10:00 [facility] MICROSCOPY, WITH REFLEX TO CULTURE URINE CULTURE 2021-06-21 10:10:00 [facility] COVID-19 SEROLOGY PATIENT 2021-06-20 17:52:00 Dinakar, [facility] SURVEILLANCE [facility] COVID-19 ANTI-SPIKE IGG 2021-06-20 17:52:[facility] ANTIBODY TITER [facility] HC COMPLETE BLD COUNT 2021-06-20 11:03:00 Dinakar, [facility] W/AUTO DIFF [facility] BASIC METABOLIC PANEL 2021-06-20 11:03:00 Dinakar, [facility] HEPATIC FUNCTION PANEL 2021-06-20 11:03:00 Dinakar, [facility] MAGNESIUM LEVEL 2021-06-20 11:03:00 Dinakar, Pierce Duckworth spital Erika PROTHROMBIN TIME WITH INR 2021-06-20 11:03:00 Dinakar, [facility] PHOSPHORUS LEVEL 2021-06-20 11:03:00 Dinakar, Pierce Arcos ospital Erika ESTIMATED GFR 2021-06-20 11:03:00 Dinakar, Pierce goldbergtal Erika XR ABDOMEN 1 VW PORTABLE 2021-06-20 00:11:00 Mukesh [facility] AMMONIA LEVEL 2021 11:27:00 Jennifer Ghoshtal HC COMPLETE BLD COUNT 2021 11:24:00 [facility]AUTO DIFF PROTHROMBIN TIME WITH INR 2021 11:24:00 [facility] COMPREHENSIVE METABOLIC 2021 11:24:00 Davina Jennifer [facility] PANEL PHOSPHORUS LEVEL 2021 11:24:00 Jennifer Ghosh ospital MAGNESIUM LEVEL 2021 11:24:00 Jennifer Ghosh spital HEMOGLOBIN A1C 2021 11:24:00 Jennifer Ghosh spital THYROID STIMULATING 2021 11:24:00 [facility] HORMONE T4 2021 11:24:00 Jennifer Ghosh spital VITAMIN D 25 HYDROXY LEVEL 2021 11:24:[facility] EST[facility] 2021 11:24:00 Jennifer Ghosh spital LACTIC ACID, I-STAT 2021 01:31:00 [facility] COVID-19 QUALITATIVE 2021 01:21:00 Diana Bangura [facility] RT-PCR CLOSTRIDIUM DIFFICILE 2021 00:30:00 [facility] TOXIN ENTERIC BACTERIAL PANEL 2021 00:30:00 [facility]IS 2021 00:09:00 Diana Bangura [facility] COMPREHENSIVE METABOLIC 2021-06-18 22:51:00 [facility] PANEL AMYLASE LEVEL 2021-06-18 22:51:00 [facility] 2021-06-18 22:51:00 [facility] HC COMPLETE BLD COUNT 2021-06-18 21:51:00 Diana Bangura [facility] W/AUTO DIFF [facility] METABOLIC 2021-06-18 21:51:00 [facility] PANEL LACTIC ACID, I-STAT 2021-06-18 21:51:00 Jennifer Ghosh [facility] AMYLASE LEVEL 2021-06-18 21:51:00 [facility] ESTIMATED GFR 2021-06-18 21:51:00 [facility] AMMONIA LEVEL 2021-06-18 21:47:00 [facility] HC COMPLETE BLD COUNT 2021-06-02 09:45:00 [facility] W/AUTO DIFF PROTHROMBIN TIME WITH INR 2021-06-02 09:45:00 [facility] BASIC METABOLIC PANEL 2021-06-02 09:45:00 [facility] HEPATIC FUNCTION PANEL 2021-06-02 09:45:00 [facility] PHOSPHORUS LEVEL 2021-06-02 09:45:00 [facility] MAGNESIUM LEVEL 2021-06-02 09:45:00 Chela [facility] ospital ESTIMATED GFR 2021-06-02 09:45:00 [facility] US ABDOMINAL LIMITED 2021-06-01 21:06:[address] VENIPUNC NEED PHYS 2021-06-01 14:32:45 Brian Linda [facility] SKILL,DX OR RX AMMONIA LEVEL 2021-06-01 10:30:00 [facility] ospital ESTIMATED GFR 2021-06-01 10:30:00 [facility] ospital PHOSPHATIDYLETHANOL, BLOOD 2021-06-01 10:30:00 [facility] HC COMPLETE BLD COUNT 2021-06-01 10:30:00 [facility] W/AUTO DIFF PROTHROMBIN TIME WITH INR 2021-06-01 10:30:00 [facility] BASIC METABOLIC PANEL 2021-06-01 10:30:00 [facility] HEPATIC FUNCTION PANEL 2021-06-01 10:30:00 [facility] PHOSPHORUS LEVEL 2021-06-01 10:30:00 [facility] MAGNESIUM LEVEL 2021-06-01 10:30:00 [facility] ospital HEMOGLOBIN A1C 2021-06-01 10:30:00 [facility] ospital THYROID STIMULATING 2021-06-01 10:30:00 [facility] HORMONE T4 2021-06-01 10:30:00 [facility] ospital VITAMIN D 25 HYDROXY LEVEL 2021-06-01 10:30:00 [facility] ZINC LEVEL, SERUM 2021-06-01 10:30:00 [facility] ALPHA FETOPROTEIN 2021-06-01 10:30:00 [facility] URINE CULTURE 2021-06-01 02:48:00 [facility] ospital BLOOD CULTURE, AEROBIC & 2021-06-01 02:43:00 [facility] ANAEROBIC BLOOD CULTURE, AEROBIC & 2021-06-01 02:42:00 [facility] ANAEROBIC URINALYSIS SCREEN AND 2021-06-01 02:40:00 [facility] MICROSCOPY, WITH REFLEX TO CULTURE URINE DRUGS OF ABUSE 2021-06-01 02:40:[address] [facility] SCREEN URIC ACID LEVEL 2021-06-01 02:38:00 [facility] PROTHROMBIN TIME WITH INR 2021-06-01 02:38:00 [facility] PHOSPHORUS LEVEL 2021-06-01 02:38:00 [facility] PARTIAL THROMBOPLASTIN 2021-06-01 02:38:00 [facility] TIME (PTT) MAGNESIUM LEVEL 2021-06-01 02:38:00 [facility] HEPATIC FUNCTION PANEL 2021-06-01 02:38:00 [facility] LDH 2021-06-01 02:38:00 [facility] LACTIC ACID LEVEL 2021-06-01 02:38:00 [facility] FIBRINOGEN 2021-06-01 02:38:00 [facility] HC COMPLETE BLD COUNT 2021-06-01 02:38:00 [facility] W/AUTO DIFF BASIC METABOLIC PANEL 2021-06-01 02:38:00 [facility] AMMONIA LEVEL 2021-06-01 02:38:00 [facility] ESTIMATED GFR 2021-06-01 02:38:00 [facility] COVID-19 SEROLOGY PATIENT 2021-06-01 02:38:00 [facility] SURVEILLANCE COVID-19 ANTI-SPIKE IGG 2021-06-01 02:38:00 [facility] ANTIBODY TITER ECG 12-LEAD 2021-06-01 01:06:10 [facility] XR ABDOMEN 1 VW PORTABLE 2021-06-01 01:06:00 Chela [facility] XR CHEST 1 VW PORTABLE 2021-06-01 01:02:00 [facility] QUALITATIVE 2021-06-01 00:37:00 Chel[facility] RT-PCR HC COMPLETE BLD COUNT 2021-05-27 10:09:00 [facility] W/AUTO DIFF [facility] BASIC METABOLIC PANEL 2021-05-27 10:09:00 [facility] HEPATIC FUNCTION PANEL 2021-05-27 10:09:00 [facility] MAGNESIUM LEVEL 2021-05-27 10:09:00 Alma Girard PHOSPHORUS LEVEL 2021-05-27 10:09:00 Alma Girard ossheldon eSlf PROTHROMBIN TIME WITH INR 2021-05-27 10:09:00 [facility] ESTIMATED GFR 2021-05-27 10:09:00 Alma Girard VENOUS BLOOD GAS 2021-05-26 23:37:00 Lucia Faustin HC COMPLETE BLD COUNT 2021-05-26 09:02:00 [facility] W[facility]AUTO DIFF [facility] PROTHROMBIN TIME WITH INR 2021-05-26 09:02:00 [facility] COVID-19 SEROLOGY PATIENT 2021-05-26 09:02:00 Abe Partida [facility] SURVEILLANCE Tom SMEAR REVIEW 2021-05-26 09:02:00 Alma Girard PHOSPHATIDYLETHANOL, BLOOD 2021-05-26 09:02:00 Palak Mayorga [facility] COVID-19 ANTI-SPIKE IGG 2021-05-26 09:02:00 Abe Partida [facility] ANTIBODY TITER Tom BASIC METABOLIC PANEL 2021-05-26 09:00:00 [facility] HEPATIC FUNCTION PANEL 2021-05-26 09:00:00 [facility] MAGNESIUM LEVEL 2021-05-26 09:00:00 Alma Girard PHOSPHORUS LEVEL 2021-05-26 09:00:00 Alma Girard ospimateo Self ALPHA FETOPROTEIN 2021-05-26 09:00:00 [facility] ZINC LEVEL, SERUM 2021-05-26 09:00:00 [facility] ESTIMATED GFR 2021-05-26 09:00:00 Alma Girard URINALYSIS SCREEN AND 2021-05-25 23:41:00 [facility] MICROSCOPY, WITH REFLEX TO [place] CULTURE URINE DRUGS OF ABUSE 2021-05-25 23:41:00 [facility] [place] URINE CULTURE 2021-05-25 23:41:00 Alma Girard US HEPATIC 2021-05-25 20:43:26 Alma Girard US ABDOMINAL DOPPLER 2021-05-25 20:40:00 [facility] HC COMPLETE BLD COUNT 2021-05-25 18:10:00 [facility] W/AUTO DIFF [place] SMEAR REVIEW 2021-05-25 18:10:00 Alma Girard VENIPUNC NEED PHYS 2021-05-25 15:59:39 Tristin Hunt [facility] SKILL,DX OR RX CBC WITH PLATELET AND 2021-05-25 13:57:00 [facility] DIFFERENTIAL [place] COMPREHENSIVE METABOLIC 2021-05-25 13:57:00 [facility] PANEL [place] ESTIMATED GFR 2021-05-25 13:57:00 Alma Girard LACTIC ACID, I-STAT 2021-05-25 00:58:00 Romero Limon [facility] COVID-19 QUALITATIVE 2021-05-25 00:00:00 Romero Limon [facility] RT-PCR CT ABDOMEN PELVIS WO 2021-05-24 23:16:57 Romero Limon [facility] CONTRAST URINALYSIS 2021-05-24 22:19:00 Romero Limon HC COMPLETE BLD COUNT 2021-05-24 22:13:00 Romero Limon [facility] W/AUTO DIFF COMPREHENSIVE METABOLIC 2021-05-24 22:13:00 Romero Limon [facility] PANEL AMYLASE LEVEL 2021-05-24 22:13:00 [facility] L[facility]ID, I-STAT 2021-05-24 22:13:00 Romero Limon [facility] ESTIMATED GFR 2021-05-24 22:13:00 Romero Limon [facility] BLOOD CULTURE, AEROBIC & 2021-05-24 22:00:00 Romero Limon [facility] ANAEROBIC CBC HEMOGRAM 2020-11-23 05:55:00 [facility] PROTHROMBIN TIME WITH INR 2020-11-23 05:55:00 [facility] COMPREHENSIVE METABOLIC 2020-11-23 05:55:00 [facility] PANEL [place] ESTIMATED GFR 2020-11-23 05:55:00 [facility] Hospital[facility]ma vo [facility] COVID-19 QUALITATIVE 2020-11-23 01:57:00 Wild Kovacs [facility] RT-PCR Tomiwa LACTIC ACID, I-STAT 2020-11-23 01:40:00 Romero Limon [facility] CT HEAD WO CONTRAST 2020-11-22 23:20:00 Romero Limon [facility] HC COMPLETE BLD COUNT 2020-11-22 22:53:00 Romero Limon [facility] W/AUTO DIFF COMPREHENSIVE METABOLIC 2020-11-22 22:53:00 Romero Limon [facility] PANEL LACTIC ACID, I-STAT 2020-11-22 22:53:00 [facility] AMMON[facility] LEVEL 2020-11-22 22:53:00 Romero Limon spital VENOUS BLOOD GAS 2020-11-22 22:53:00 Romero Limon ospital ESTIMATED GFR 2020-11-22 22:53:00 Romero Limon spital XR ABDOMEN ACUTE INC CHEST 2020-11-02 22:51:00 Cliff Levy [facility] 1V ESTIMATED GFR 2020-11-02 21:55:00 [facility] HC COMPLETE BLD COUNT 2020-11-02 21:55:00 [facility] W/AUTO DIFF COMPREHENSIVE METABOLIC 2020-11-02 21:55:00 [facility] PANEL PROTHROMBIN TIME WITH INR 2020-11-02 21:55:00 [facility] COVID-19 QUALITATIVE 2020-11-02 21:05:00 [facility] RT-PCR NM BRAIN SPECT W I 123 2020-10-26 19:02:00 [facility] COMPLETE BLD COUNT 2020-10-24 10:15:00 [facility] W/AUTO DIFF BASIC METABOLIC PANEL 2020-10-24 10:15:00 [facility] HEPATIC FUNCTION PANEL 2020-10-24 10:15:00 [facility] MAGNESIUM LEVEL 2020-10-24 10:15:00 [facility] PHOSPHORUS LEVEL 2020-10-24 10:15:00 [facility] PROTHROMBIN TIME WITH INR 2020-10-24 10:15:00 [facility] HEMOGLOBIN A1C 2020-10-24 10:15:00 [facility] THYROID STIMULATING 2020-10-24 10:15:00 [facility] HORMONE T4 2020-10-24 10:15:00 [facility] VITAMIN D 25 HYDROXY LEVEL 2020-10-24 10:15:00 [facility] ZINC LEVEL, SERUM 2020-10-24 10:15:00 [facility] ALPHA FETOPROTEIN 2020-10-24 10:15:00 [facility] ESTIMATED GFR 2020-10-24 10:15:00 [facility] URINE DRUGS OF ABUSE 2020-10-24 10:00:[address] [facility] SCREEN LACTIC ACID LEVEL, SEPSIS 2020-10-24 06:20:00 [facility] - NOW AND REPEAT 2X EVERY 3 HOURS LACTIC ACID LEVEL, SEPSIS 2020-10-24 02:25:00 [facility] - NOW AND REPEAT 2X EVERY 3 HOURS XR CHEST 1 VW PORTABLE 2020-10-24 00:08:00 Rehrer, [facility] BLOOD CULTURE, AEROBIC & 2020-10-23 23:31:00 Rehrer, [facility] ANAEROBIC RESPIRATORY PATHOGEN PANEL 2020-10-23 23:31:00 Rehrer, [facility] WITH COVID-19 RT-PCR COMPREHENSIVE METABOLIC 2020-10-23 23:31:00 Rehrer, [facility] PANEL PHOSPHORUS LEVEL 2020-10-23 23:31:00 Rehrer, [facility] MAGNESIUM LEVEL 2020-10-23 23:31:00 Rehrer, [facility] LACTIC ACID LEVEL, SEPSIS 2020-10-23 23:31:00 [facility] - NOW AND REPEAT 2X EVERY 3 HOURS LIPASE LEVEL 2020-10-23 23:31:00 Rehrer, [facility] ESTIMATED GFR 2020-10-23 23:31:00 Rehrer, [facility] HC COMPLETE BLD COUNT 2020-10-23 23:20:00 Rehrer, [facility] W/AUTO DIFF PROTHROMBIN TIME WITH INR 2020-10-23 23:20:00 Rehrer, [facility] PARTIAL THROMBOPLASTIN 2020-10-23 23:20:00 Rehrer, [facility] TIME (PTT) AMMONIA LEVEL 2020-10-23 23:20:00 Rehrer, [facility] HC COMPLETE BLD COUNT 2020-10-10 00:05:00 [facility] W/AUTO DIFF COMPREHENSIVE METABOLIC 2020-10-10 00:05:00 [facility] PANEL LACTIC ACID, I-STAT 2020-10-10 00:05:00 [facility] AMMONIA LEVEL 2020-10-10 00:05:00 [facility] ESTIMATED GFR 2020-10-10 00:05:00 [facility] URINALYSIS 2020-10-09 23:32:00 [facility] ECG 12-LEAD 2020-10-09 23:18:11 [facility] HC COMPLETE BLD COUNT 2020-09-21 10:28:00 [facility] W/AUTO DIFF BASIC METABOLIC PANEL 2020-09-21 10:28:00 [facility] HEPATIC FUNCTION PANEL 2020-09-21 10:28:00 [facility] MAGNESIUM LEVEL 2020-09-21 10:28:00 [facility] PHOSPHORUS LEVEL 2020-09-21 10:28:00 [facility] PROTHROMBIN TIME WITH INR 2020-09-21 10:28:00 [facility] MISCELLANEOUS REFERRAL 2020-09-21 10:28:00 [facility] VITAMIN B12 LEVEL 2020-09-21 10:28:00 [facility] FOLATE LEVEL 2020-09-21 10:28:00 [facility] ESTIMATED GFR 2020-09-21 10:28:00 [facility] COVID-19 QUALITATIVE 2020-09-20 20:51:00 Robby Perez [facility] RT-PCR Gabriel HC COMPLETE BLD COUNT 2020-09-20 12:08:00 [facility] W/AUTO DIFF BASIC METABOLIC PANEL 2020-09-20 12:08:00 [facility] HEPATIC FUNCTION PANEL 2020-09-20 12:08:00 [facility] MAGNESIUM LEVEL 2020-09-20 12:08:00 [facility] PHOSPHORUS LEVEL 2020-09-20 12:08:00 [facility] PROTHROMBIN TIME WITH INR 2020-09-20 12:08:00 [facility] HEMOGLOBIN A1C 2020-09-20 12:08:00 [facility] THYROID STIMULATING 2020-09-20 12:08:00 [facility] HORMONE T4 2020-09-20 12:08:00 [facility] VITAMIN D 25 HYDROXY LEVEL 2020-09-20 12:08:00 [facility] ZINC LEVEL, SERUM 2020-09-20 12:08:00 [facility] ALPHA FETOPROTEIN 2020-09-20 12:08:00 [facility] ESTIMATED GFR 2020-09-20 12:08:[address] [facility] CT CERVICAL SPINE WO 2020-09-20 06:50:26 Bonny Rod [facility] CONTRAST [facility] CT PELVIS WO CONTRAST 2020-09-20 06:50:16 Bonny Rod [facility] CT HEAD WO CONTRAST 2020-09-20 06:50:07 [facility] [place] [facility]M 2020-09-20 04:05:41 Bonny Rod [facility] 30-74 MINUTES Renee URINE CULTURE 2020-09-20 04:00:00 Bonny Rod spital Renee URINALYSIS SCREEN AND 2020-09-20 04:00:00 [facility], WITH REFLEX TO Renee CULTURE URINE DRUGS OF ABUSE 2020-09-20 04:00:00 [facility] Ernee MAGNESIUM LEVEL 2020-09-20 04:00:00 Bonny Rod spital Renee TROPONIN 2020-09-20 04:00:00 Bonny Rod spital Renee XR KNEE 3 VW LEFT 2020-09-20 02:06:29 Marcel [facility] Renee XR KNEE 3 VW RIGHT 2020-09-20 02:06:09 Marcel [facility] XR SHOULDER 2+ VW RIGHT 2020-09-20 02:05:[address] [facility] COUNT 2020-09-20 02:05:00 [facility] W/AUTO DIFF Renee PROTHROMBIN TIME WITH INR 2020-09-20 02:05:00 Bonny Rod [facility] Renee PARTIAL THROMBOPLASTIN 2020-09-20 02:05:00 Bonny Rod [facility] TIME (PTT) Renee COMPREHENSIVE METABOLIC 2020-09-20 02:05:00 [facility] Renee TROPONIN 2020-09-20 02:05:00 Bonny Rod spital Renee B NATRIURETIC PEPTIDE 2020-09-20 02:05:00 [facility] 2020-09-20 02:05:00 Bonny Rod spital Renee ALCOHOL LEVEL, BLOOD 2020-09-20 02:05:[address] [facility] 2020-09-20 02:05:00 Bonny Rod [facility] Renee Plan of Care Planned Activity Planned Date Details Comments Source Future Scheduled 2021-09-12 COLONOSCOPY SCREENING [facility] Test 12:13:11 [code = COLONOSCOPY SCREENING] Future Scheduled 2021-09-12 SHINGLES VACCINES Method [facility] Test 12:13:11 (#1) [code = SHINGLES VACCINES (#1)] Future Scheduled 2021-09-12 BREAST CANCER [facility] Test 12:13:11 SCREENING [code = BREAST CANCER SCREENING] Future Scheduled 2021-09-12 COVID-19 VACCINE (2 - Me [facility] Test 12:13:11 Booster for Yanira series) [code = COVID-19 VACCINE (2 - Booster for Yanira series)] Future Scheduled 2021-09-12 INFLUENZA VACCINE Method [facility] Test 12:13:11 [code = INFLUENZA VACCINE] Future Scheduled 2021-09-12 Screening for [facility] Test 12:13:11 malignant neoplasm of cervix (procedure) [code = 341267578] Future Scheduled 2021-08-12 DEPRESSION SCREENING NPI :[id number] Test 00:00:00 (12+) [code = DEPRESSION SCREENING (12+)] Future Scheduled 2021-04-12 INFLUENZA VACCINE NPI:[id number] Test 00:00:00 (#1) [code = INFLUENZA VACCINE (#1)] Future Scheduled 2016-01-12 MEDICARE ANNUAL NPI:[id number] Test 00:00:00 WELLNESS (YEAR 2 or FIRST YEAR if no IPPE) [code = MEDICARE ANNUAL WELLNESS (YEAR 2 or FIRST YEAR if no IPPE)] Future Scheduled 2011 SHINGLES VACCINES (1 NPI :[id number] Test 00:00:00 of 2) [code = SHINGLES VACCINES (1 of 2)] Future Scheduled 2006 Lipid panel NPI:[id number] Test 00:00:00 (procedure) [code = 11463041] Future Scheduled 1982 Screening for NPI:[id number] Test 00:00:00 malignant neoplasm of cervix (procedure) [code = 440331095] Future Scheduled 1980 DTAP/TDAP/TD VACCINES [employer] I:[id number] Test 00:00:00 (1 - Tdap) [code = DTAP/TDAP/TD VACCINES (1 - Tdap)] Future Scheduled 1973 COVID-19 VACCINE (1) NPI :[id number] Test 00:00:00 [code = COVID-19 VACCINE (1)] Future Scheduled 1961 Screening for NPI:[id number] Test 00:00:00 malignant neoplasm of breast (procedure) [code = 540022756] Future Scheduled 1961 Screening for NPI:[id number] Test 00:00:00 malignant neoplasm of colon (procedure) [code = 864793574] Encounters Start End Encounter Admission Attending Care Care Encounter Source Date/Time Date/Time Type Type Clinicians Facility Department ID 2021-09-06 Outpatient Díaz, [facility] NPI:[id number] 13:49:19 Fernando 25584 [id number] 2021-09-06 Outpatient D[facility]az, [facility] NPI:174 13:45:16 Fernando [id number] 2021-09-06 Outpatient D[facility]az, [facility] [id number] NPI:174 12:49:41 Fernando 33199 [id number] 2021-09-06 [facility] [id number] NPI:174 12:05:14 Fernando 11309 [id number] 2021-09-06 [facility] [id number] NPI:174 12:03:44 Fernando [id number] 2021-09-06 Out[facility] D[facility], [facility] [id number] NPI:174 11:42:32 Fernando [id number] 2021-09-06 [facility] [id number] NPI:174 11:33:04 Fernando [id number] 2021-11-30 2021-11-30 amb[facility] [id number] NPI:174 00:00:00 00:00:00 [id number] 2021-11-16 2021-11-16 [facility] HERMELINDA Thompson 1.2.400.145 [id number] NPI:183 13:30:00 14:32:33 Visit Luisana PORRAS 350.1.13.10 1 [id number] [facility] 4.2.7.2.686 [facility] [id number] [address] 2021-10-27 2021-11-[address] [facility] [id number] [place] 00:00:00 00:00:00 DANGELO, Ava Method i [facility] 2021-10-16 2021-10-16 ambulatory [facility] [id number] NPI:174 00:00:00 00:00:00 [id number] 2021-10-13 2021-10-13 ambulatory [facility] [id number] NPI:174 00:00:00 00:00:00 [id number] 2021-09-25 2021-09-25 ambulatory [facility] [id number] NPI:174 00:00:00 00:00:00 [id number] 2021-09-01 2021-09-16 Inpatient ER RAFAEL, [facility] [id number] 22:15:00 12:13:00 NEMAIRA 2021-09-04 2021-09-04 ambulatory [facility] ST[facility] [id number] NPI:174 00:00:00 00:00:00 [id number] 2021-09-01 2021-09-01 Telephone Cristofer, 1.2.840.1 [id number] Methodi 00:00:00 00:00:00 [place] [address].1.1 992 [facility] 3.430.2.7 Hospit a .3.070462 l .8 2021-09-01 2021-09-01 Documentat Garrettheydi, [facility] [id number] [id number] NPI:118 00:00:00 00:00:00 ion Dawna [id number] 2021-08-30 2021-08-31 Emergency ADALI, [facility] 064 [id number] [place] 00:00:00 00:00:00 MOISES [address] 2021-08-30 2021-08-30 Travel 1.2.840.1 1.2.112.519 [id number] Methodi 00:00:00 00:00:[address] 3.430.2.7 0.2.7.3.698 Ho spita .3.187955 084.8 l .8 2021-08-29 2021-08-29 Travel 1.2.840.1 1.2.879.116 1221 [id number] Methodi 00:00:00 00:00:[address] 3.430.2.7 0.2.7.3.698 Ho spita .3.200325 084.8 l .8 2021-08-17 2021-08-25 [facility] [place] 1.2.840.1 [id number] Methodi 19:50:00 18:28:00 Encounter [place] Girard 73308.1.[address] Jennifer Ghosh 3.430.2.7 Hos lis .3.511656 l .8 2021-08-25 2021-08-25 Travel 1.2.840.1 1.2.057.697 [id number] [id number] Methodi 00:00:00 00:00:[address] 3.430.2.7 0.2.7.3.698 Ho spita .3.785295 084.8 l .8 2021-08-24 2021-08-24 Surgery Tomy, 1.2.840.1 [id number] Methodi 09:00:00 10:25:[address] 3.430.2.7 Hospit a .3.291547 l .8 2021-08-24 2021-08-24 Documentat Cristofer, 1.2.840.1 [id number] 21 [id number] Methodi 00:00:00 00:00:[place] [address]1.[address] Matthew 3.430.2.7 Hospit a .3.225285 l .8 2021-08-23 2021-08-23 Documentat Delaiyana, 1.2.840.1 [id number] Methodi 00:00:00 00:00:[place] [address] Matthew 3.430.2.7 Hospit a .3.585044 l .8 2021-08-21 2021-08-21 Social Jaimes, 1.2.840.1 [id number] 087 [id number] Methodi 12:37:39 13:37:39 Work Scott 28552.1.[address] 3.430.2.7 Hospit a .3.138186 l .8 2021-08-21 2021-08-21 Documentat Cristofer, 1.2.840.1 [id number] 21 [id number] Methodi 00:00:00 00:00:00 lupillo [place] [address]133.1.[address] Matthew 3.430.2.7 Hospit a .3.791966 l .8 2021-08-21 2021-08-21 Telephone Pops, 1.2.840.1 [id number] 2099 [id number] Methodi 00:00:00 00:00:[address] 3.430.2.7 Hospit a .3.332203 l .8 2021-08-18 2021-08-18 Travel 1.2.840.1 1.2.767.002 8428 [id number] Methodi 00:00:00 00:00:[address] 3.430.2.7 0.2.7.3.698 Ho spita .3.448313 084.8 l .8 2021-08-10 2021-08-11 Emergency Adali, 1.2.840.1 [id number] 2 [id number] Methodi 20:25:00 01:30:[address] A[place]aka 3.430.2.7 Ho spita .3.597949 l .8 2021-08-10 2021-08-10 Travel 1.2.840.1 1.2.659.529 4820 [id number] Methodi 00:00:00 00:00:[address] 3.430.2.7 0.2.7.3.698 Ho spita .3.415455 084.8 l .8 2021-07-28 2021-07-28 ambulatory STLMLC STLMLC [id number] NPI:174 00:00:00 00:00:00 [id number] 2021-07-25 2021-07-25 Telephone Stephanie, 1.2.840.1 [id number] Methodi 00:00:00 00:00:[address] 3.430.2.7 Hospit a .3.996917 l .8 2021-07-24 2021-07-24 Telephone Pops, 1.2.840.1 [id number] 2099 [id number] Methodi 00:00:00 00:00:[address] 3.430.2.7 Hospit a .3.083593 l .8 2021-07-12 2021-07-12 ambulatory STLMLC STLMLC [id number] NPI:174 00:00:00 00:00:00 [id number] 9 2021-06-29 2021-06-29 Travel 1.2.840.1 1.2.137.625 7357 [id number] Methodi 00:00:00 00:00:[address] 3.430.2.7 0.2.7.3.698 Ho spita .3.063552 084.8 l .8 2021-06-28 2021-06-28 Emergency Nuszen, 1.2.840.1 [id number] 2100 [id number] Methodi 13:22:00 16:56:00 [address] 3.430.2.7 Hospit a .3.741422 l .8 2021-06-22 2021-06-22 Behavioral John, 1.2.840.1 [id number] Methodi 00:00:00 00:00:00 Health Kaleb 78557.1.[address] Johnny 3.430.2.7 Hospit a .3.221544 l .8 2021-06-18 2021-06-21 Hospital Willem Diana Bin 1.2.840.1 [id number] Methodi 15:30:00 14:22:00 Encounter Jennifer Ghosh 82789.1.[address] [place] 3.430.2.7 Hospita .3.565629 l .8 2021-06-18 2021-06-18 Travel 1.2.840.1 1.2.992.880 5626 [id number] Methodi 00:00:00 00:00:[address] 3.430.2.7 0.2.7.3.698 Ho spita .3.480646 084.8 l .8 2021-06-16 2021-06-16 [facility] 1.2.840.7 [id number] 21 [id number] Methodi 00:00:00 00:00:00 Only Eusebia Maya 37369.1.[address] 3.430.2.7 Hospit a .3.003703 l .8 2021-06-08 2021-06-08 Clinical 1.2.840.1 [id number] [id number] Methodi 12:04:06 13:04:[address] 3.430.2.7 Hospit a .3.589558 l .8 2021-06-05 2021-06-05 Telephone John, 1.2.840.1 [id number] 2100 [id number] Methodi 00:00:00 00:00:[address] Johnny 3.430.2.7 Hospit a .3.130865 l .8 2021-05-31 2021-06-02 [facility] CHELA, 1.2.840.1 [id number] [place] 00:00:00 00:00:00 Encounter HERIBERTO 22556.1.1 [address] .3.626904 .8 2021-05-31 2021-05-31 Travel 1.2.840.1 1.2.463.560 4942 [id number] Methodi 00:00:00 00:00:[address] 3.430.2.7 0.2.7.3.698 Ho spita .3.863782 084.8 l .8 2021-05-24 2021-05-27 [facility] Braxton Romero Kortney 1.2.840.1 [id number] Methodi 16:35:00 16:49:00 [facility] [place] Girard [address]493.1.[address] GarcíaPierce wallace Erika 3.430.2.7 Hospita .3.598150 l .8 2021-05-24 2021-05-24 Travel 1.2.840.1 1.2.723.528 6506 [id number] Methodi 00:00:00 00:00:[address] 3.430.2.7 0.2.7.3.698 Ho spita .3.562242 084.8 l .8 2021-05-23 2021-05-23 Outpatient [facility] [id number] NPI:174 00:00:00 00:00:00 [id number] 2021-05-19 2021-05-19 Outpatient [facility] [id number] NPI:174 00:00:00 00:00:00 [id number] 2021-05-01 2021-05-01 Outpatient [facility] [id number] NPI:174 00:00:00 00:00:00 [id number] 2021-04-26 2021-04-26 Outpatient [facility] [id number] NPI:174 00:00:00 00:00:00 [id number] 2021-04-26 2021-04-26 Outpatient [facility] [id number] NPI:174 00:00:00 00:00:00 [id number] 2021-04-26 2021-04-26 Outpatient [facility] [id number] NPI:174 00:00:00 00:00:00 [id number] 2021-01-13 2021-01-13 Outpatient [facility] [id number] NPI:174 00:00:00 00:00:00 [id number] 2020-12-13 2020-12-13 Outpatient [facility] [id number] NPI:174 00:00:00 00:00:00 [id number] 2020-11-28 2020-11-28 Patient Randal, 1.2.840.1 [id number] [id number] Methodi 00:00:00 00:00:00 Outreach Bia 51097.1.[address] 3.430.2.7 Hospit a .3.524645 l .8 2020-11-25 2020-11-25 Patient Randal, 1.2.840.1 [id number] Methodi 00:00:00 00:00:00 Outreach Bia 54434.1.[address] 3.430.2.7 Hospit a .3.592521 l .8 2020-11-24 2020-11-24 Patient Randal, 1.2.840.1 [id number] Methodi 00:00:00 00:00:00 Outreach Bia 51543.1.[address] 3.430.2.7 Hospit a .3.051283 l .8 2020-11-22 2020-11-23 Emergency Wild Kovacs 1.2.840. 1 [id number] Methodi 17:29:00 16:26:00 Baylee Girard [address]178.1.[address] 3.430.2.7 Hospit a .3.741545 l .8 2020-11-22 2020-11-22 Travel 1.2.840.1 1.2.379.507 7773 [id number] Methodi 00:00:00 00:00:[address] 3.430.2.7 0.2.7.3.698 Ho spita .3.947159 084.8 l .8 2020-11-17 2020-11-17 Outpatient [facility] [id number] NPI:174 00:00:00 00:00:00 [id number] 2020-11-02 2020-11-02 [facility] Cliff Marion 1.2.840.1 [id number] Methodi 16:45:00 23:59:00 Encounter Calos Garcia 05752.1.[address] 3.430.2.7 Hospit a .3.438886 l .8 2020-11-02 2020-11-02 Lab Jose 1.2.840.1 [id number] Methodi 16:00:31 16:05:31 Calos Feng [address]7086.1.[address] 3.430.2.7 Hospit a .3.511646 l .8 2020-11-02 2020-11-02 Travel 1.2.840.1 1.2.897.234 3607 [id number] Methodi 00:00:00 00:00:[address] 3.430.2.7 0.2.7.3.698 Gucci goldbergdenice .3.878466 084.8 l .8 2020-10-26 2020-10-26 [facility], 1.2.840.1 [id number] Methodi 12:51:36 23:59:00 Encounter Cliff Marion 53330.1.[address] 3.430.2.7 Hospit a .3.560781 l .8 2020-10-26 2020-10-26 [facility], 1.2.840.1 [id number] Methodi 08:10:06 12:50:00 Encounter Cliff Marion 00623.1.[address] 3.430.2.7 Hospit a .3.962489 l .8 2020-10-26 2020-10-26 Travel 1.2.840.1 1.2.819.199 2686 [id number] Methodi 00:00:00 00:00:[address] 3.430.2.7 0.2.7.3.698 Ho spita .3.397410 084.8 l .8 2020-10-23 2020-10-24 [facility] [id number] Methodi 17:57:00 14:46:00 Encounter Heriberto Douglas 88999.1.[address] Ting Baylee Pi[facility]430.2.7 [facility] Pierce Cisneros .3.265539 l .8 2020-10-13 2020-10-13 Travel 1.2.840.1 1.2.644.569 7968 [id number] Methodi 00:00:00 00:00:[address] 3.430.2.7 0.2.7.3.698 Ho spita .3.551148 084.8 l .8 2020-10-12 2020-10-12 Transcribe [facility] 1.2.840.1 [id number] Methodi 00:00:00 00:00:00 Orders Cliff Marion 03386.1.[address] 3.430.2.7 Hospit a .3.167052 l .8 2020-10-11 2020-10-11 Outpatient STLMLC STLMLC [id number] NPI:174 00:00:00 00:00:00 [id number] 9 2020-10-09 2020-10-09 Emergency [place], 1.2.840.1 [id number] [id number] Methodi 16:28:00 19:29:[address] Gus 3.430.2.7 Hospit a .3.171227 l .8 2020-10-03 2020-10-03 Outpatient STLMLC STLMLC [id number] NPI:174 00:00:00 00:00:00 [id number] 9 2020-09-19 2020-09-21 [facility], Robby Rios 1.2.840.1 [id number] Methodi 16:55:00 14:27:00 Vincenzo Douglas Heriberto 75236.1.[address] Jennifer Ghosh 3.430.2.7 Hos lis .3.620766 l .8 2020-09-15 2020-09-15 [facility] Garcia 1.2.840.1 [id number] Methodi 00:00:00 00:00:[address] Sheryl [address]1.[address] 3.430.2.7 Hospit a .3.085724 l .8 2020-09-14 2020-09-14 Outpatient STLMLC STLMLC [id number] NPI:174 00:00:00 00:00:00 [id number] 9 2020-07-27 2020-07-27 Outpatient STLMLC STLMLC [id number] NPI:174 00:00:00 00:00:00 [id number] 9 2020-06-28 2020-06-28 Outpatient STLMLC STLMLC [id number] NPI:174 00:00:00 00:00:00 [id number] 9 2020-06-20 2020-06-20 Outpatient STLMLC STLMLC [id number] NPI:174 00:00:00 00:00:00 [id number] 9 2020-05-20 2020-05-20 Outpatient STLMLC STLMLC [id number] NPI:174 00:00:00 00:00:00 [id number] 9 2020-04-13 2020-04-13 [facility] 32 [id number] NPI:174 16:02:00 16:02:00 [facility] [employer] 0485 879 [facility] 2020-04-13 2020-04-13 [facility] 32 32360 NPI:174 09:33:00 09:33:00 [employer] 0485 879 [facility] 2020-04-05 2020-04-05 [facility] 32 54435 NPI:174 09:10:00 09:10:00 [employer] 0485 879 [facility] 2020-04-04 2020-04-04 [facility] 32 46487 NPI:174 10:58:00 10:58:[address] [facility] 2020-04-04 2020-04-04 [facility] 32 [id number] NPI:174 10:00:00 10:00:[address] [facility] 2020-03-16 2020-03-16 [facility] 31 [id number] NPI:174 11:12:00 11:12:[address] [facility] 2020-03-10 2020-03-10 [facility] 31 [id number] NPI:174 13:18:00 13:18:[address] [facility] 2020-03-07 2020-03-07 [facility] 31 [id number] NPI:174 16:07:00 16:07:[address] [facility] 2020-03-04 2020-03-04 [facility] 30 51223 NPI:174 11:00:00 11:00:[address] [facility] 2020-03-04 2020-03-04 [facility] 30 [id number] NPI:174 11:00:00 11:00:[address] [facility] 2019-12-29 2019-12-29 [facility] 30 [id number] NPI:174 07:03:00 07:03:[address] [facility] 2019-12-22 2019-12-22 Office HERMELINDA Choe 1.2.840.114 [id number] 66 14:08:03 14:56:41 Visit [facility] 350.1.13.10 Surgical 4.2.7.2.686 Specialti [id number] es [address] [place] 2019-07-20 2019-07-20 [facility] 28 12975 NPI:174 14:02:00 14:02:[address] [facility] 2019-07-16 2019-07-16 [facility] 27 19626 NPI:174 13:15:00 13:15:[address] 0485 [facility] 2019-04-15 2019-04-15 [facility] 27 [id number] NPI:174 14:19:00 14:19:00 [facility]ss[employer]vy [facility] 2019-04-09 2019-04-09 [facility] 26 05346 NPI:174 14:00:00 14:00:00 [facility]ssavvy [facility] 2018-09-09 2018-09-09 [facility] 23 70821 NPI:174 14:45:00 14:45:00 appssavvy [facility] 2018-04-15 2018-04-15 [facility] 15 [id number] NPI:174 12:02:00 12:02:00 appssavvy [facility] 2018-02-19 2018-02-19 [facility] 14 41831 NPI:174 15:08:00 15:08:00 appssavvy [facility] 2018-01-24 2018-01-24 [facility] 13 [id number] NPI:174 11:15:00 11:15:00 [employer] [facility] [employer] [place] [address] Results Test Description Test Time Test Comments Results Result Comments Source SARS-CoV-2 (COVID-19) RNA [Presence] in Respiratory sp ecimen by 2021-10-28 04:55:57 GUSTAVO with probe detection Test Item Value Reference Range Interpretation Comme nts SARS-CoV-2 (COVID-19) RNA [Presence] in Respiratory specimen by Not detected GUSTAVO with probe detection (test code = 12574-8) 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 (test code = Un known 99650-3) Whether the patient has symptoms related to condition of interest U nknown (test code = 00272-3) Whether the patient was hospitalized for condition of interest Unkn own (test code = 16938-7) Whether the patient was admitted to intensive care unit (ICU) for U nknown condition of interest (test code = 36520-5) Whether patient resides in a congregate care setting (test code = U nknown 22130-0) status (test code = 45134-0) Unknown Date and time of symptom onset (test code = 46853-1) Unknown SARS-CoV-2 (COVID-19) RNA [Presence] in Respiratory specimen by GUSTAVO with probe [id number] 01:48:29 Test Item Value Reference Range Interpretation Comments SARS-CoV-2 (COVID-19) RNA Not detected [Presence] in Respiratory specimen by GUSTAVO with probe detection (test code = 89271-3) 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 employed in a Unknown healthcare setting (test code = 19993-4) Whether the patient has symptoms Unknown related to condition of interest (test code = 03672-6) Whether the patient was Unknown hospitalized for condition of interest (test code = 48743-9) Whether the patient was admitted Unknown to intensive care unit (ICU) for condition of interest (test code = 55579-9) Whether patient resides in a Unknown congregate care setting (test code = 51537-3) status (test code = Unknown 11317-7) Date and time of symptom onset Unknown (test code = 53059-2) CT, [id number] 08:50:00Unlisted Reason for Exam - Click Yes and Enter Reason Below->YesUnlisted Reason for Exam->diarrhea. abdominal pain. C dif colitis.Is this for enterography?->NoWill this procedure require oral c ontrast?->No[facility] : 1960 Sex: FFINAL [...] MDReport Verified Date/Time: 09/15/2021 08:50:57 BASIC METABOLIC [id number] 07:34:36 Test Item Value Reference Range Interpretation [...] S NOT APPLICABLE FOR DIALYSIS PATIEN TS. Anchor Tacker ID - EOSpecimen moderately ictericHEPATIC FUNCTION [id number] 07:29:08 Test Item Value Reference Range Interpretation [...] Specimen slightly (test code = 347) hemolyzed Anchor Tacker ID - EOSpecimen moderately ictericPROTHROMBIN TIME/[id number] 06:46:58 Test Item Value Reference Range Interpretation Comments PROTIME (BEAKER) 22.1 seconds 11.9-14.2 H (test code = 759) INR (BEAKER) (test 1.96 See_Comment [Automat ed message] code = 370) The system [facility] generated this result transmitted ref erence range: [...] = 2801) CBC W/PLT COUNT & AUTO [id number] 10:18:58 Test Item Value Reference Range Interpretation [...] (BEAKER) (test code = 2801) BASIC METABOLIC [id number] 08:06:00 Test Item Value Reference Range Interpretation [...] S NOT APPLICABLE FOR DIALYSIS PATIEN TS. Anchor Tacker ID - MARLON KENTpecimen moderately ictericHEPATIC FUNCTION [id number] 08:06:00 Test Item Value Reference Range Interpretation [...] (test code = 19 U/L 6-55 347) Anchor Tacker GINA KENTpecimen moderately ictericPROTHROMBIN TIME/[id number] 07:51:15 Test Item Value Reference Range Interpretation Comments PROTIME (BEAKER) 20.6 seconds 11.9-14.2 H (test code = 759) INR (BEAKER) (test 1.80 See_Comment [Automat ed message] code = 370) The system [facility] generated this result transmitted ref erence range: <=5.90. The reference range was not used to int erpret this result as normal/abnormal . RECOMMENDED COUMADIN/WARFARIN INR THERAPY RANGESSTANDARD DOSE: 2.0 - 3.0 Includes: PROPHYLAXIS forvenous thrombosis, systemic embolization; TREATMENT for venous thrombosis and/or pulmonary embolus.HIGH RISK: Target INR is 2.5-3.5 for patients with mechanical heart valves.HEPATIC FUNCTION [id number] 07:41:30 Test Item Value Reference Range Interpretation [...] (test code = 21 U/L 6-55 347) Anchor Tacker ID - PIAYA LSpecimen moderately ictericBASIC METABOLIC [id number] 07:41:29 Test Item Value Reference Range Interpretation [...] S NOT APPLICABLE FOR DIALYSIS PATIEN TS. Anchor Tacker ID - PIAYA LSpecimen moderately ictericPROTHROMBIN TIME/[id number] 07:34:58 Test Item Value Reference Range Interpretation Comments PROTIME (BEAKER) 19.3 seconds 11.9-14.2 H (test code = 759) INR (BEAKER) (test 1.66 See_Comment [Automat ed message] code = 370) The system [facility] generated this result transmitted ref erence range: [...] PERCENT (BEAKER) (test code = 2801) VITAMIN [id number] 07:00:04 Test Item Value Reference Range Interpretation Comments VITAMIN B12 (BEAKER) (test code = > pg/mL 213-816 H 774) Anchor Tacker ID - ZAC WBASIC METABOLIC [id number] 06:43:51 Test Item Value Reference Range Interpretation [...] S NOT APPLICABLE FOR DIALYSIS PATIEN TS. Anchor Tacker ID - ZAC WOperator ID - MARLON LSpecimen slightly ictericVITAMIN D, [id number] 05:27:33 Test Item Value Reference Range Interpretation Comments VITAMIN D 25-OH (BEAKER) (test code 4.4 ng/mL 6.6-49.9 L = 2764) Effective 05/22/2017: Reference Range ChangeNew: 6.6-49.9 ng/mL Previous: 13.0-47.8 ng/mLRecommended Vitamin D Target Range: 30.0-40.0 ng/mLOperator ID - MARLON LC-REACTIVE [id number] 05:23:46 Test Item Value Reference Range Interpretation Comments C-REACTIVE PROTEIN (BEAKER) (test 1.00 mg/dL 0.00-0.50 H code = 676) Anchor Tacker ID - ZAC [id number] 05:23:45 Test Item Value Reference Range Interpretation Comments MAGNESIUM (BEAKER) (test code = 1.6 mg/dL 1.6-2.6 627) Anchor Tacker ID - ZAC WHEPATIC FUNCTION [id number] 05:23:45 Test Item Value Reference Range Interpretation [...] (test code = 17 U/L 6-55 347) Anchor Tacker GINA Rosales slightly ictericPROTHROMBIN TIME/[id number] 04:53:27 Test Item Value Reference Range Interpretation Comments PROTIME (BEAKER) 22.4 seconds 11.9-14.2 H (test code = 759) INR (BEAKER) (test 2.00 See_Comment [Automat ed message] code = 370) The system [facility] generated this result transmitted ref erence range: [...] (BEAKER) (test code = 2801) Basic Metabolic [id number] 08:26:03 Test Item Value Reference Range Interpretation Comments Sodium (test code = 137 meq/L 569-941 3851-2) Potassium (test code 3.5 meq/L 3.5-5.1 = 2823-3) Chloride (test code = 109 meq/L 98-107 H 5-0) CO2 (test code = 24 meq/L 22-29 8-9) BUN (test code = 13 mg/dL 7-21 3094-0) Creatinine (test code 0.73 mg/dL 0.57-1.25 = 2160-0) Glucose (test code = 85 mg/dL 70-105 2345-7) Calcium (test code = 7.7 mg/dL 8.4-10.2 L 01870-0) EGFR (test code = 81 mL/min/1.73 [place] [address]-2) NOT ACCURATE CREATININE CLEARANCE IN PREDICTING GLOMERULAR FILTRATION RATE . ESTIMATED GFR I S NOT APPLICABLE FOR DIALYSIS PATIENTS. REJI (test code = REJI) Anchor Tacker ID - MARLON Covington ID - DBSpecimen slightly icteric Lab Interpretation Abnormal (test code = 75322-0) NPI:[id number] METABOLIC [id number] 08:26:03 Test Item Value Reference Range Interpretation [...] S NOT APPLICABLE FOR DIALYSIS PATIEN TS. Anchor Tacker ID - MARLON Covington ID - DBSpecimen slightly ictericHepatic function [id number] 07:24:45 Test Item Value Reference Range Interpretation Comments Protein, Total (test 4.9 See_Comment L [Autom ated code = 2885-2) message] The system which generated this result transmitted reference range : 6.0 - 8.3 gm/dL . The reference range was not used to interpr et this result as normal/abnormal . Albumin (test code = 2.2 g/dL 3.5-5.0 L 37261-4) Total Bilirubin (test 4.0 mg/dL 0.2-1.2 H code = 1975-2) Bilirubin, Direct 1.5 mg/dL 0.1-0.5 H (test code = 1968-7) Alkaline Phosphatase 111 U/L 40-150 (test code = 6768-6) AST (test code = 53 U/L 5-34 H 1920-8) ALT (test code = 17 U/L 6-55 1742-6) REJI (test code = REJI) Anchor Tacker ID Ajay Herrmannn slightly icteric Lab Interpretation Abnormal (test code = 08215-3) NPI:[id number] 07:24:45 Test Item Value Reference Range Interpretation Comments Magnesium (test code = 1.7 mg/dL 1.6-2.6 64709-7) REJI (test code = REJI) Anchor Tacker ID - MARLON L Lab Interpretation (test Normal code = 98464-3) NPI:[id number] 07:24:45 Test Item Value Reference Range Interpretation Comments MAGNESIUM (BEAKER) (test code = 1.7 mg/dL 1.6-2.6 627) Anchor Tacker ID - MARLON LHEPATIC FUNCTION [id number] 07:24:45 Test Item Value Reference Range Interpretation [...] (test code = 17 U/L 6-55 347) Anchor Tacker ID - MARLON Ferrera slightly ictericProthrombin time/[id number] 06:40:57 Test Item Value Reference Interpretation Comments Range Protime (test code = 22.5 See_Comment H [Autom ated 5902-2) message] The system which generated this result transmitted reference range : 11.9 - 14.2 seconds. The reference range was not used to interpret this result as normal/abnormal . INR (test code = 2.01 See_Comment [Automated 6301-6) message] The system which generated this result [...] valves. Lab Interpretation Abnormal (test code = 24534-3) NPI:[id number] TIME/[id number] 06:40:57 Test Item Value Reference Range Interpretation Comments PROTIME (BEAKER) 22.5 seconds 11.9-14.2 H (test code = 759) INR (BEAKER) (test 2.01 See_Comment [Automat ed message] code = 370) The system [facility] generated this result transmitted ref erence range: [...] See_Comment H [A utomated message] The system [facility] generated this result transmitted ref erence range: 3.5 - 10 .5 K/L. The refe rence range was not u sed to interpret this result as normal/abnor mal. RBC (test code = 789-8) 2.76 See_Comment L [Au tomated message] The system [facility] generated this result transmitted ref erence range: 3.93 - 5 .22 M/L. The refe rence range was not u sed to interpret this result as normal/abnor mal. MCHC (test code = 786-4) 31.5 See_Comment L [A utomated message] The system [facility] generated this result transmitted ref erence range: [...] L [Aut omated message] 777-3) The system [facility] generated this result transmitted ref erence range: 150 - 45 0 K/CU MM. The referen ce range was not u sed to interpret this result as normal/abnor mal. MPV (test code = 9.6 fL 9.4-12.3 29533-4) nRBC (test code = 413) 0 See_Comment [Aut omated message] The system [facility] generated this result transmitted ref erence range: [...] H [Aut omated message] 670) The system [facility] generated this result transmitted ref erence range: 1.56 - 6 .13 K/L. The refe rence range was not u sed to interpret this result as normal/abnor mal. # Lymphs (test code = 1.18 See_Comment [Auto mated message] 414) The system [facility] generated this result transmitted ref erence range: 1.18 - 3 .74 K/L. The refe rence range was not u sed to interpret this result as normal/abnor mal. # Monos (test code = 0.64 See_Comment H [Autom ated message] 415) The system [facility] generated this result transmitted ref erence range: 0.24 - 0 .36 K/L. The refe rence range was not u sed to interpret this result as normal/abnor mal. # Eos (test code = 416) 0.31 See_Comment [Au tomated message] The system [facility] generated this result transmitted ref erence range: 0.04 - 0 .36 K/L. The refe rence range was not u sed to interpret this result as normal/abnor mal. # Baso (test code = 417) 0.02 See_Comment [A utomated message] The system [facility] generated this result transmitted ref erence range: 0.01 - 0 .08 K/L. The refe rence range was not u sed to interpret this result as normal/abnor mal. Immature 1 % 0-1 Granulocytes-Relative (test code = 2801) Lab Interpretation (test Abnormal code = 58532-8) NPI:[id number] W/PLT COUNT & AUTO [id number] 06:36:06 Test Item Value Reference Range Interpretation [...] (BEAKER) (test code = 2801) BASIC METABOLIC [id number] 09:04:28 Test Item Value Reference Range Interpretation [...] S NOT APPLICABLE FOR DIALYSIS PATIEN TS. Anchor Tacker ID - DBSpecimen moderately [id number] 08:26:10 Test Item Value Reference Range Interpretation Comments MAGNESIUM (BEAKER) (test code = 1.8 mg/dL 1.6-2.6 627) Anchor Tacker ID - DBHEPATIC FUNCTION [id number] 08:26:10 Test Item Value Reference Range Interpretation [...] (test code = 17 U/L 6-55 347) Anchor Tacker ID - DBSpecimen moderately ictericPROTHROMBIN TIME/[id number] 07:14:13 Test Item Value Reference Range Interpretation Comments PROTIME (BEAKER) 23.1 seconds 11.9-14.2 H (test code = 759) INR (BEAKER) (test 2.08 See_Comment [Automat ed message] code = 370) The system [facility] generated this result transmitted ref erence range: [...] 0-1 H PERCENT (BEAKER) (test code = 2808) BASIC METABOLIC [id number] 09:04:18 Test Item Value Reference Range Interpretation [...] S NOT APPLICABLE FOR DIALYSIS PATIEN TS. Anchor Tacker ID - DBOperator ID - DBSpecimen moderately ictericHEPATIC FUNCTION [id number] 07:53:06 Test Item Value Reference Range Interpretation [...] (test code = 16 U/L 6-55 347) Anchor Tacker ID - DBSpecimen moderately ictericManual [id number] 07:50:25 Test Item Value Reference Range Interpretation Comments % Neutros (test code = 96 % 2816) % Monos (test code = 2 % 2818) % Eos (test code = 2819) 1 % % Bands (test code = 1 % 0-10 1326) # Neutros (test code = 13.34 K/ul 1.56-6.13 H 283) # Monos (test code = 0.28 K/uL 0.24-0.36 283) # Eos (test code = 2834) 0.14 [...] Ovalocytes (test code = 1+ few 477) Debi Cells (test code = 1+ few 474) Artifact (test code = Present 3432) Platelet Conc (test code Decreased = 3438) REJI (test code = REJI) Anchor Tacker ID - michaela Cutler comments: Slide comments: Lab Interpretation (test Abnormal code = 94425-5) (CELLAVISION MANUAL DIFF)2021-09-09 07:50:25 Test Item Value Reference Range Interpretation Comments NEUTROPHILS - REL 96 % (CELLAVISION)(BEAKER) (test code = 281) MONOCYTES - REL 2 % (CELLAVISION)(BEAKER) (test code = 2818) EOSINOPHILS - REL 1 % (CELLAVISION)(BEAKER) (test code = 2819) BANDS - REL (CELLAVISION)(BEAKER) 1 % 0-10 (test code = 2825) NEUTROPHILS - ABS 13.34 K/ul 1.56-6.13 H [...] (BEAKER) (test code = 1+ few 477) DEBI CELLS (BEAKER) (test code = 1+ few 474) ARTIFACT (CELLAVISION)(BEAKER) Present (test code = 3432) PLATELET CONCENTRATION Decreased (CELLAVISION)(BEAKER) (test code = 3438) Anchor Tacker ID - michaela Cutler comments: Slide comments:CBC W/PLT COUNT & AUTO [id number] 07:50:24 Test Item Value Reference Range Interpretation [...] WBC 0-0 (test code = 413) PROTHROMBIN TIME/[id number] 06:28:05 Test Item Value Reference Range Interpretation Comments PROTIME (BEAKER) 24.0 seconds 11.9-14.2 H (test code = 759) INR (BEAKER) (test 2.18 See_Comment [Automat ed message] code = 370) The system [facility] generated this result transmitted ref erence range: [...] = No growth in 5 days 6463-4) NPI:[id number] 14:01:01 Test Item Value Reference Range Interpretation Comments CULTURE (BEAKER) (test No growth in 5 days code = 1095) [id number] 11:09:32 Test Item Value Reference Range Interpretation Comments Ammonia (test code = 35 See_Comment [Autom ated 76793-6) message] The system which generated this result transmit barron reference range : 18 - 72 mol/L . The reference range was not u sed to interpret th is result as normal/abnormal . REJI (test code = REJI) Anchor Tacker ID - PIAYA L Lab Interpretation Normal (test code = 58763-6) NPI:[id number] 11:09:32 Test Item Value Reference Range Interpretation Comments AMMONIA (BEAKER) (test code = 348) 35 mol/L 18-72 Anchor Tacker ID - PIAYA LCBC W/PLT COUNT & AUTO [id number] 07:57:44 Test Item Value Reference Range Interpretation [...] CONCENTRATION Decreased (CELLAVISION)(BEAKER) (test code = 3438) Anchor Tacker ID - Phyllis comments: Slide comments:BASIC METABOLIC [id number] 06:46:23 Test Item Value Reference Range Interpretation [...] S NOT APPLICABLE FOR DIALYSIS PATIEN TS. Anchor Tacker ID Ajay Rosales slightly [id number] 06:42:47 Test Item Value Reference Range Interpretation Comments Phosphorus (test code = 2.4 mg/dL 2.3-4.7 2777-1) REJI (test code = REJI) Anchor Tacker ID Ajay FRANK W Lab Interpretation (test Normal code = 84190-8) NPI:[id number] 06:42:47 Test Item Value Reference Range Interpretation Comments PHOSPHORUS (BEAKER) (test code = 2.4 mg/dL 2.3-4.7 604) Anchor Tacker ID Ajay FRANK WHEPATIC FUNCTION [id number] 06:42:47 Test Item Value Reference Range Interpretation [...] (test code = 15 U/L 6-55 347) Anchor Tacker ID - ZAC Rosales slightly ictericPROTHROMBIN TIME/[id number] 05:37:24 Test Item Value Reference Range Interpretation Comments PROTIME (BEAKER) 26.6 seconds 11.9-14.2 H (test code = 759) INR (BEAKER) (test 2.48 See_Comment [Automat ed message] code = 370) The system [facility] generated this result transmitted ref erence range: [...] (BEAKER) (test 1+ few code = 481) DEBI CELLS (BEAKER) (test code = 2+ moderate 474) ARTIFACT (CELLAVISION)(BEAKER) Present (test code = 3432) PLATELET CONCENTRATION Decreased (CELLAVISION)(BEAKER) (test code = 3438) Anchor Tacker ID - Cindy Gibson comments: Slide comments:CBC W/PLT COUNT & AUTO [id number] 09:40:43 Test Item Value Reference Range Interpretation [...] 0-0 (test code = 413) BASIC METABOLIC [id number] 07:22:45 Test Item Value Reference Range Interpretation [...] S NOT APPLICABLE FOR DIALYSIS PATIEN TS. Anchor Tacker ID - MARLON LSpecimen slightly [id number] 07:16:27 Test Item Value Reference Range Interpretation Comments PHOSPHORUS (BEAKER) (test code = 2.2 mg/dL 2.3-4.7 L 604) Anchor Tacker ID - PIRADHA LHEPATIC FUNCTION [id number] 07:16:27 Test Item Value Reference Range Interpretation [...] (test code = 17 U/L 6-55 347) Anchor Tacker ID - MARLON Ferrera slightly ictericBLOOD [id number] 07:00:33 Test Item Value Reference Range Interpretation Comments CULTURE (BEAKER) (test No growth in 5 days code = 1095) PROTHROMBIN TIME/[id number] 06:15:38 Test Item Value Reference Range Interpretation Comments PROTIME (BEAKER) 25.1 seconds 11.9-14.2 H (test code = 759) INR (BEAKER) (test 2.31 See_Comment [Automat ed message] code = 370) The system [facility] generated this result transmitted ref erence range: <=5.90. The reference range was not used to int erpret this result as normal/abnormal . RECOMMENDED COUMADIN/WARFARIN INR THERAPY RANGESSTANDARD DOSE: 2.0 - 3.0 Includes: PROPHYLAXIS forvenous thrombosis, systemic embolization; TREATMENT for venous thrombosis and/or pulmonary embolus.HIGH RISK: Target INR is 2.5-3.5 for patients with mechanical heart valves.Ova and Parasite [id number] 08:26:13 Test Item Value Reference Range Interpretation Comments O&P Direct Smear (test No ova or parasites No ova or code = 52057-0) seen parasites seen REJI (test code = REJI) See scanned report Lab Interpretation (test Normal code = 09384-5) NPI:[id number] 07:29:32 Test Item Value Reference Range Interpretation Comments PHOSPHORUS (BEAKER) (test code = 1.5 mg/dL 2.3-4.7 LL 604) Anchor Tacker ID - ZAC WBASIC METABOLIC [id number] 07:09:27 Test Item Value Reference Range Interpretation [...] S NOT APPLICABLE FOR DIALYSIS PATIEN TS. Anchor Tacker ID - ZAC WOODSpecimekorin slightly ictericPROTHROMBIN TIME/[id number] 06:57:19 Test Item Value Reference Range Interpretation Comments PROTIME (BEAKER) 23.2 seconds 11.9-14.2 H (test code = 759) INR (BEAKER) (test 2.09 See_Comment [Automat ed message] code = 370) The system [facility] generated this result transmitted ref erence range: [...] (BEAKER) (test 1+ few code = 481) DEBI CELLS (BEAKER) (test code = 2+ moderate 474) PLATELET CONCENTRATION Decreased (CELLAVISION)(BEAKER) (test code = 3438) Anchor Tacker ID - nabil Julian comments: Slide comments:[id number] 15:08:54 Test Item Value Reference Range Interpretation Comments PHOSPHORUS (BEAKER) (test code = 1.2 mg/dL 2.3-4.7 LL 604) Anchor Tacker ID - BSBASIC METABOLIC [id number] 15:04:30 Test Item Value Reference Range Interpretation [...] S NOT APPLICABLE FOR DIALYSIS PATIEN TS. Anchor Tacker ID - BSSpecimen slightly ictericHEPATIC FUNCTION [id number] 15:02:35 Test Item Value Reference Range Interpretation [...] (test code = 17 U/L 6-55 347) Anchor Tacker ID - BSSpecimen slightly ictericPROTHROMBIN TIME/[id number] 14:50:10 Test Item Value Reference Range Interpretation Comments PROTIME (BEAKER) 24.9 seconds 11.9-14.2 H (test code = 759) INR (BEAKER) (test 2.28 See_Comment [Automat ed message] code = 370) The system [facility] generated this result transmitted ref erence range: [...] (test code = 413) Clostridium difficile GDH Zlbbi4716-02-10 21:23:26 Test Item Value Reference Range Interpretation Comments C. Difficle Toxin Positive Negative A (test code = 5520174939) C. Difficile GDH Positive Negative A Confirms Antigen (test code = Clostri dium 3232481161) difficile-assoc ia barron infection.First line therapy - oral Vancomycin . Continue enteri c isolation until 72 hours after treatment is discontinued an d symptoms have resolved. REJI (test code = Testing performed REJI) by [employer] Rapid Cassette Assay. For GDH, published sensitivity of the assay is 98.7% compared to cytotoxicity testing. For Toxin AB, published sensitivity is 87.8% and specificity 99.4% compared to cytotoxicity testing.Verificati on of kit performance was done by the [facility] Microbiology Lab prior to clinical use. Lab Interpretation Abnormal (test code = 05977-4) NPI:[id number]. DIFFICILE GDH [id number] 21:23:26 Test Item Value Reference Range Interpretation Comments CDT TOXIN (test code Positive Negative A = 1107451086) CDT GDH ANTIGEN Positive Negative A Confirms Maria Esther stridium (test code = difficile-assoc iated 8836889354) infection.First line therapy - oral Vancomycin. Co ntinue enteric isolati on until 72 hours after treatment is discontinued and symptoms have r esolved. Testing performed by [employer] Rapid Cassette Assay. For GDH, published sensitivity of the assay is 98.7% compared to cytotoxicity testing. For Toxin AB, published sensitivity is 87.8% and specificity 99.4% compared to cytotoxicity testing.Verification of kit performance was done by the [facility] Microbiology Lab prior to clinical use.CT, CHEST, WITH [id number] 10:14:00Unlisted Reason for Exam - Click Yes and Enter Reason Below->No [facility] : 1960 Sex: FFINAL REPORT [...] spleen. Small volume ascites. Signed: Quentin Sims MDRhospital for special care Verified Date/Time: 09/04/2021 10:14:08 CT, ABDOMEN 2021-09-04 10:14:00Unlisted Reason for Exam - Click Yes and Enter Reason Below- >No Is this for enterography?->YesWill this procedure require oral contrast?->[facility] : 1960 Sex: FFINAL [...] Quentin Sims MDReport Verified Date/Time: 09/04/2021 10:14:08 (CELLAVISION MANUAL DIFF)2021-09-04 [...] CONCENTRATION Decreased (CELLAVISION)(BEAKER) (test code = 3438) Anchor Tacker ID - michaela Culter comments: Slide comments:CBC W/PLT COUNT & AUTO [id number] 07:25:32 Test Item Value Reference Range Interpretation [...] /100 WBC 0-0 (test code = 413) [id number] 06:26:19 Test Item Value Reference Range Interpretation Comments PHOSPHORUS (BEAKER) (test code = 1.5 mg/dL 2.3-4.7 LL 604) Anchor Tacker GINA FRANK WComprehensive metabolic [id number] 06:18:30 Test Item Value Reference Range Interpretation Comments Protein, Total (test 4.7 See_Comment L [Autom ated code = 2775-2) message] The system which generated this result transmitted reference range : 6.0 - 8.3 gm/dL . The reference range was not used to interpr et this result as normal/abnormal . Albumin (test code = 2.7 g/dL 3.5-5.0 L 45331-1) Alkaline Phosphatase 85 U/L 40-150 (test code = 6768-6) Total Bilirubin (test 2.7 mg/dL 0.2-1.2 H code = 1974-2) Sodium (test code = 134 meq/L 136-145 L 2951-2) Potassium (test code 3.6 meq/L 3.5-5.1 = 2823-3) Chloride (test code = 113 meq/L 98-107 H 5-0) CO2 (test code = 17 meq/L 22-29 L 2028-9) BUN (test code = 27 mg/dL 7-21 H 3094-0) Creatinine (test code 1.06 mg/dL 0.57-1.25 = 2160-0) Glucose (test code = 118 mg/dL 70-105 H 2345-7) Calcium (test code = 7.3 mg/dL 8.4-10.2 L 56750-6) AST (test code = 28 U/L 5-34 1920-8) ALT (test code = 14 U/L 6-55 1742-6) EGFR (test code = 53 mL/min/1.73 [place] [address]-6) NOT ACCURATE CREATININE CLEARANCE IN PREDICTING GLOMERULAR FILTRATION RATE . ESTIMATED GFR I S NOT APPLICABLE FOR DIALYSIS PATIENTS. REJI (test code = REJI) Anchor Tacker ID - ZAC WSpecimen slightly icteric Lab Interpretation Abnormal (test code = 62705-3) NPI:[id number] METABOLIC [id number] 06:18:30 Test Item Value Reference Range Interpretation [...] S NOT APPLICABLE FOR DIALYSIS PATIEN TS. Anchor Tacker ID - ZAC WSpecimen slightly kyofjplPPPSDCTRB4451-23-10 06:13:05 Test Item Value Reference Range Interpretation Comments MAGNESIUM (BEAKER) (test code = 2.3 mg/dL 1.6-2.6 627) Anchor Tacker ID - ZAC W(CELLAVISION MANUAL DIFF)2021-09-03 14:33:56 Test Item Value [...] CONCENTRATION Decreased (CELLAVISION)(BEAKER) (test code = 3438) Anchor Tacker ID - Claudine Rios comments: Slide comments:CBC W/PLT COUNT & AUTO [id number] 14:33:55 Test Item Value Reference Range Interpretation [...] (test code = 413) Hepatitis B surface ymlqcgze7720-82-56 13:30:11 Test Item Value Reference Range Interpretation Comments Hep B S Ab (test code <8.0 See_Comment [Auto mated = 31896-0) message] The system which generated this result transmit barron reference range : <8.0 mIU/mL. e reference range was not used to interpret this result as normal/abnormal . REJI (test code = REJI) Anchor Tacker ID - MARLON Zapien Lab Interpretation Normal (test code = 20051-5) NPI:[id number] B SURFACE [id number] 13:30:11 Test Item Value Reference Range Interpretation Comments HEPATITIS B SURFACE ANTIBODY < mIU/mL <8.0 (BEAKER) (test code = 647) Anchor Tacker ID Ajay MASON LHepatitis A antibody, [id number] 13:23:53 Test Item Value Reference Range Interpretation Comments Hep A IgG (test code = Nonreactive Nonreactive 08306-5) REJI (test code = REJI) Anchor Tacker ID Ajay Zapien Lab Interpretation (test Normal code = 77204-4) NPI:[id number] A ANTIBODY, [id number] 13:23:53 Test Item Value Reference Range Interpretation Comments HEPATITIS A IGG ANTIBODY (BEAKER) Nonreactive Nonreactive (test code = 2797) Anchor Tacker ID Ajay MASON LHepatitis B core antibody, [id number] 13:23:52 Test Item Value Reference Range Interpretation Comments Hep B Core Total Ab Nonreactive Nonreactive (test code = 32462-5) REJI (test code = REJI) Anchor Tacker ID Ajay Zapien Lab Interpretation (test Normal code = 75677-3) NPI:[id number] C tekmmexj1440-33-75 13:23:52 Test Item Value Reference Range Interpretation Comments Hepatitis C Ab (test Nonreactive Nonreactive code = 00532-7) REJI (test code = REJI) Anchor Tacker ID Ajay Zapien Lab Interpretation (test Normal code = 31643-5) NPI:[id number] C [id number] 13:23:52 Test Item Value Reference Range Interpretation Comments HEPATITIS C ANTIBODY (BEAKER) Nonreactive Nonreactive (test code = 367) Anchor Tacker ID Ajay ARREOLAEPATITIS B CORE ANTIBODY, [id number] 13:23:52 Test Item Value Reference Range Interpretation Comments HEPATITIS B CORE TOTAL ANTIBODY Nonreactive Nonreactive (BEAKER) (test code = 497) Anchor Tacker ID Ajay MASON LHepatitis B surface enrwjub1912-81-23 13:23:51 Test Item Value Reference Range Interpretation Comments HBsAg Screen (test code Nonreactive Nonreactive = 5195-3) REJI (test code = REJI) Specimen is considered negative for HBsAg. Lab Interpretation (test Normal code = 13543-6) NPI:[id number] B SURFACE [id number] 13:23:51 Test Item Value Reference Range Interpretation [...] S NOT APPLICABLE FOR DIALYSIS PATIEN TS. Anchor Tacker ID - PIRADHA LSpecimen slightly ikawcxrAJBPLGWMF1889-06-79 12:58:51 Test Item Value Reference Range Interpretation Comments MAGNESIUM (BEAKER) (test code = 2.1 mg/dL 1.6-2.6 627) Anchor Tacker ID - PIRADHA GVPNQNISQFP9231-18-57 12:58:51 Test Item Value Reference Range Interpretation Comments PHOSPHORUS (BEAKER) (test code = 2.3 mg/dL 2.3-4.7 604) Anchor Tacker ID - PIAYA LPROTHROMBIN TIME/[id number] 12:56:09 Test Item Value Reference Range Interpretation Comments PROTIME (BEAKER) 23.4 seconds 11.9-14.2 H (test code = 759) INR (BEAKER) (test 2.10 See_Comment [Automat ed message] code = 370) The system [facility] generated this result transmitted ref erence range: <=5.90. The reference range was not used to int erpret this result as normal/abnormal . RECOMMENDED COUMADIN/WARFARIN INR THERAPY RANGESSTANDARD DOSE: 2.0 - 3.0 Includes: PROPHYLAXIS forvenous thrombosis, systemic embolization; TREATMENT for venous thrombosis and/or pulmonary embolus.HIGH RISK: Target INR is 2.5-3.5 for patients with mechanical heart valves.Urine eafnjyj8925-49-62 12:15:06 Test Item Value Reference Range Interpretation Comments Result (test code = 6463-4) No growth NPI:[id number] Pathogen Profile by PCR -ID [id number] 12:43:22 Test Item Value Reference Range Interpretation Comments CAMPYLOBACTER (PCR) Not detected Not detected (test code = 96530-5) PLESIOMONAS SHIGELLOIDES Not detected Not detected (PCR) (test code = 09972-9) SALMONELLA (PCR) (test Not detected Not detected code = 46577-6) YERSINIA ENTEROCOLITICA Not detected Not detected (PCR) (test code = 01189-1) VIBRIO CHOLERAE (PCR) Not detected Not detected (test code = 17877-8) ENTEROAGGREGATIVE E. Not detected Not detected COLI (EAEC) BY PCR (test code = 86969-6) ENTEROPATHOGENIC E. COLI Not detected Not detected (EPEC) BY PCR (test code = 33472-0) ENTEROTOXIGENIC E. COLI Not detected Not detected (ETEC) LT/ST BY PCR (test code = 48890-7) SHIGA-LIKE Not detected Not detected TOXIN-PRODUCING E. COLI (STEC) STX1/STX2 (test code = 62943-0) E. COLI O157 (PCR) (test code = 40297-5) SHIGELLA/ENTEROINVASIVE Not detected Not detected E. COLI (EIEC) BY PCR (test code = 19134-2) CRYPTOSPORIDIUM (PCR) Not detected Not detected (test code = 78713-0) CYCLOSPORA CAYETANENSIS Not detected Not detected (PCR) (test code = 93976-7) ENTAMOEBA HISTOLYTICA Not detected Not detected (PCR) (test code = 64719-4) GIARDIA LAMBLIA (PCR) Not detected Not detected (test code = 91714-4) ADENOVIRUS F 40/41 (PCR) Not detected Not detected (test code = 35514-2) ASTROVIRUS (PCR) (test Not detected Not detected code = 22459-9) NOROVIRUS GI/GII (PCR) Not detected Not detected (test code = 76336-4) ROTAVIRUS A (PCR) (test Not detected Not detected code = 39330-1) SAPOVIRUS (I, II, IV, V) Not detected Not detected BY PCR (test code = 89626-9) VIBRIO Not detected Not detected (PARAHAEMOLYTICUS, VULNIFICUS) (test code = 59044-8) REJI (test code = REJI) Other viruses, parasites and bacteria not targeted by this PCR panel cannot be excluded; therefore clinical correlation and follow up of serology, culture results, and other molecular studies is required. The results are not intended to be used as the sole means for clinical diagnosis or patient management decisions. This sample was tested at the [facility] Molecular Diagnostics Laboratory using the Tow ChoiceArray Gastrointestinal Panel. It is FDA cleared and has been verified and approved by the [facility] Molecular Diagnostics Laboratory for clinical use. This laboratory is CLIA-certified and [employer] (CAP)-accredited to perform high complexity testing. NPI:[id number] PATHOGEN PROFILE BY [id number] 12:43:22 Test Item Value Reference Range Interpretation Comments CAMPYLOBACTER (PCR) (test code = Not detected Not detected 20160214) PLESIOMONAS SHIGELLOIDES (PCR) Not detected Not detected (test code = 20160218) SALMONELLA (PCR) (test code = Not detected Not detected ) YERSINIA ENTEROCOLITICA (PCR) Not detected Not detected (test code = 20160312) VIBRIO CHOLERAE (PCR) (test code Not detected Not detected = 20160313) ENTEROAGGREGATIVE E. COLI (EAEC) Not detected Not detected BY PCR (test code = 2824868) ENTEROPATHOGENIC E. COLI (EPEC) Not detected Not detected BY PCR (test code = 0503840) ENTEROTOXIGENIC E. COLI (ETEC) Not detected Not detected LT/ST BY PCR (test code = 0466690) SHIGA-LIKE TOXIN-PRODUCING E. Not detected Not detected COLI (STEC) STX1/STX2 (test code = 5006838) E. COLI O157 (PCR) (test code = 3557390) SHIGELLA/ENTEROINVASIVE E. COLI Not detected Not detected (EIEC) BY PCR (test code = 6373992) CRYPTOSPORIDIUM (PCR) (test code Not detected Not detected = 2053011) CYCLOSPORA CAYETANENSIS (PCR) Not detected Not detected (test code = 6089984) ENTAMOEBA HISTOLYTICA (PCR) Not detected Not detected (test code = 20160412) GIARDIA LAMBLIA (PCR) (test code Not detected Not detected = 9581929) ADENOVIRUS F 40/41 (PCR) (test Not detected Not detected code = 20160414) ASTROVIRUS (PCR) (test code = Not detected Not detected 20160415) NOROVIRUS GI/GII (PCR) (test Not detected Not detected code = 4919040) ROTAVIRUS A (PCR) (test code = Not detected Not detected 20160417) SAPOVIRUS (I, II, IV, V) BY PCR Not detected Not detected (test code = 20160418) VIBRIO (PARAHAEMOLYTICUS, Not detected Not detected VULNIFICUS) (test code = 4895928) Other viruses, parasites and bacteria not targeted by this PCR panel cannot be excluded; therefore clinical correlation and follow up of serology, culture results, and other molecular studies is required. The results are not intended to be used as the sole means for clinical diagnosis or patient management decisions. This sample was tested at the [facility] Molecular Diagnostics Laboratory using the Tow ChoiceArray Gastrointestinal Panel. It is FDA cleared and has been verified and approved by the [facility] Molecular Diagnostics Laboratory for clinical [...] (BEAKER) (test code = 1+ few 477) DEBI CELLS (BEAKER) (test code = 3+ many 474) ARTIFACT (CELLAVISION)(BEAKER) Present (test code = 3432) PLATELET CONCENTRATION Decreased (CELLAVISION)(BEAKER) (test code = 3438) Anchor Tacker ID - Phyllis comments: Slide comments:CBC W/PLT COUNT & AUTO [id number] 08:49:57 Test Item Value Reference Range Interpretation [...] (test code = 413) Vitamin B12 and Uesary3277-55-00 07:20:11 Test Item Value Reference Range Interpretation Comments Vitamin B12 (test 1116 pg/mL 213-816 H code = 2132-9) Folate (test code = 3.50 ng/mL See_Comment L [Automa barron 2284-8) message] The system which generated this result transmit barron reference range : >=7.00. The reference range was not used to interpret this result as normal/abnormal . REJI (test code = REJI) Anchor Tacker ID - SHAQUILLE M Lab Interpretation Abnormal (test code = 22422-3) NPI:[id number] B12 AND [id number] 07:20:11 Test Item Value Reference Range Interpretation Comments VITAMIN B12 (BEAKER) 1116 pg/mL 213-816 H (test code = 774) FOLATE (BEAKER) 3.50 ng/mL See_Comment L [Automated message] (test code = 362) The system which generated this result transmitted ref erence range: >=7.00. The reference range was not used to interpr et this result as normal/abnormal . Anchor Tacker ID - SHAQUILLE MCOMPREHENSIVE METABOLIC [id number] 06:57:06 Test Item Value Reference Range Interpretation [...] S NOT APPLICABLE FOR DIALYSIS PATIEN TS. Anchor Tacker GINA CORBIN MSpecimen slightly ictericC-Reactive Dwfbzam3999-62-47 06:55:26 Test Item Value Reference Range Interpretation Comments CRP (test code = 676) 4.64 mg/dL 0.00-0.50 H REJI (test code = REJI) Anchor Tacker GINA CORBIN M Lab Interpretation (test Abnormal code = 05133-2) NPI:[id number] 06:55:26 Test Item Value Reference Range Interpretation Comments PHOSPHORUS (BEAKER) (test code = 1.8 mg/dL 2.3-4.7 L 604) Anchor Tacker GINA CORBIN MC-REACTIVE [id number] 06:55:26 Test Item Value Reference Range Interpretation Comments C-REACTIVE PROTEIN (BEAKER) (test 4.64 mg/dL 0.00-0.50 H code = 676) Anchor Tacker ID - SHAQUILLE YHWCVZMWVZ6433-34-08 06:55:25 Test Item Value Reference Range Interpretation Comments MAGNESIUM (BEAKER) (test code = 2.3 mg/dL 1.6-2.6 627) Anchor Tacker ID - SHAQUILLE Orozcoon, TIBC, % sat. (without ferritin)2021-09-02 06:44:00 Test Item Value Reference Range Interpretation Comments Iron (test code = 2498-4) 28.0 ug/dL 40.0-160.0 L TIBC (test code = 2500-7) 243 ug/dL 250-450 L Iron % Saturation (test 12 % 20-55 L code = 2502-3) REJI (test code = REJI) Anchor Tacker ID - SHAQUILLE M Lab Interpretation (test Abnormal code = 00567-8) NPI:[id number], TIBC, % SAT. (WITHOUT FERRITIN)2021-09-02 06:44:00 Test Item Value Reference Range Interpretation Comments IRON (BEAKER) (test code = 547) 28.0 ug/dL 40.0-160.0 L TOTAL IRON BINDING CAPACITY 243 ug/dL 250-450 L (BEAKER) (test code = 769) IRON % SATURATION (2) (BEAKER) 12 % 20-55 L (test code = 2590) Anchor Tacker ID - SHAQUILLE MCT, BRAIN, WITHOUT PQLGLMQJ1656-33-02 03:54:00Unlisted Reason for Exam - Click Yes and Enter Reason Below->No [facility] 1960 Sex: FFINAL [...] is recommended forfurther characterization. Signed: Mercy Mccallum MDReport Verified Date/Time: 09/02/2021 03:54:37 U/S, ABDOMINAL, [id number] 03:38:00Abdomen limited area? Add comment if clarification is needed.->Right upper quadrantReason for exam:->evaluate biliary tree/liver [facility] : 1960 Sex: FFINAL [...] setting of hepatic steatosis. Signed: Dulce Maria Saleshospital for special care Verified Date/Time: 09/02/2021 03:38:29 Urinalysis w/Microscopic + Reflex to [id number] 02:29:12 Test Item Value Reference Range Interpretation Comments Color, UA (test code Brown = 5778-6) Clarity, UA (test Hazy code = 5767-9) Specific [place], UA 1.029 1.001-1.035 (test code = 5811-5) pH, UA (test code = 6.0 5.0-8.0 5803-2) Protein, UA (test 30 mg/dL Negative A code = 25472-4) Glucose, UA (test Negative Negative code = 365) Ketones, UA (test Negative Negative code = 2514-8) Bilirubin, UA (test Negative Negative code = 87732-9) Blood, UA (test code Small Negative A = 24192-8) Nitrite, UA (test Negative Negative code = 5802-4) Leukocytes, UA (test Moderate Negative A code = 5799-2) Urobilinogen, UA 0.2 mg/dL 0.2-1.0 (test code = 87290-0) RBC, UA (test code = 18 See_Comment [Autom ated 07587-3) message] The system which generated this result [...] . Bacteria, UA (test Rare code = 42986-1) Mucus (test code = Moderate 8247-9) Squam Epithel, UA 2 See_Comment [Automate d (test code = 34039-8) messag e] The system which generated this result transmit barron reference range : /HPF. The reference range was not used to interpret this result as normal/abnormal . Hyaline Casts, UA 3 See_Comment [Automate d (test code = 60271-5) messag e] The system which generated this result transmit barron reference range : /LPF. The reference range was not used to interpret this result as normal/abnormal . Crystals, Urine (test None Seen code = 30633-2) Amorphous Crystals Rare (test code = 65369-8) Specimen Source (test code = 2795) REJI (test code = REJI) Anchor Tacker ID - [auto]Anchor Tacker ID - tech Lab Interpretation Abnormal (test code = 91782-6) NPI:[id number] W/ REFLEX URINE [id number] 02:29:12 Test Item Value Reference Range Interpretation [...] = 1584) SOURCE(BEAKER) (test code = 2795) Anchor Tacker ID - [auto]Anchor Tacker ID - Lilliana CHEST, 1 VIEW, NON [id number] 01:45:00Reason for exam:->leukocytosis, unable to provide historyShould this be performed at the bedside?->Yes [facility] : 1960 Sex: FFINAL [...] 09/02/2021 01:45:23 CBC W/PLT COUNT & AUTO [id number] 00:20:23 Test Item Value Reference Range Interpretation [...] (BEAKER) (test code = 1+ few 471) DEBI CELLS (BEAKER) (test code = 1+ few 474) HELMET CELLS (CELLAVISION)(BEAKER) 1+ few (test code = 3434) PLATELET CONCENTRATION Decreased (CELLAVISION)(BEAKER) (test code = 3438) Anchor Tacker ID - Curtis Grullon comments: Slide comments:PT/[id number] 23:44:49 Test Item Value Reference Interpretation Comments Range Protime (test code = 22.8 See_Comment H [Autom ated 5902-2) message] The system which generated this result transmitted reference range : 11.9 - 14.2 seconds. The reference range was not used to interpret this result as normal/abnormal . INR (test code = 2.04 See_Comment [Automated 8121-6) message] The system which generated this result transmitted reference range : <=5.90. The reference range was not used to interpret this result as normal/abnormal . PTT (test code = 35.2 See_Comment [Automated 03911-6) message] The system which generated this result [...] valves. Lab Interpretation Abnormal (test code = 52636-7) NPI:[id number]/[id number] 23:44:49 Test Item Value Reference Range Interpretation [...] for patients with mechanical heart valves.BASIC METABOLIC [id number] 23:31:12 Test Item Value Reference Range Interpretation [...] S NOT APPLICABLE FOR DIALYSIS PATIEN TS. Anchor Tacker ID - DBSpecimen slightly fqylkdcDCTMAXSTH2439-29-90 23:19:46 Test Item Value Reference Range Interpretation Comments MAGNESIUM (BEAKER) (test code = 1.8 mg/dL 1.6-2.6 627) Anchor Tacker ID - QAKWRQYVFEUE0003-28-69 23:19:46 Test Item Value Reference Range Interpretation Comments PHOSPHORUS (BEAKER) (test code = 1.9 mg/dL 2.3-4.7 L 604) Anchor Tacker ID - DBHEPATIC FUNCTION WDLDK9722-42-00 23:19:46 Test Item Value Reference Range Interpretation [...] (test code = 14 U/L 6-55 347) Anchor Tacker ID - DBSpecimen slightly ictericLactic acid, mljgxf9398-06-35 23:13:03 Test Item Value Reference Range Interpretation Comments Lactate, Venous (test 2.88 mmol/L 0.50-2.20 H code = 2872) REJI (test code = REJI) Anchor Tacker ID - DBSpecimen slightly icteric Lab Interpretation (test Abnormal code = 90905-7) NPI:[id number] ACID, [id number] 23:13:03 Test Item Value Reference Range Interpretation Comments LACTATE BLOOD VENOUS (2) (BEAKER) 2.88 mmol/L 0.50-2.20 H (test code = 2872) Anchor Tacker ID - DBSpecimen slightly ictericPOC-Glucose [id number] 22:47:30 Test Item Value Reference Range Interpretation Comments POC-Glucose Meter (test 106 mg/dL 70-110 : TE STED AT [facility] code = 1538) [address] [facility], 770 30: Anchor Tacker/Techni sowmya ID = [id number] for ULLATTIL, TAYA K Lab Interpretation (test Normal code = 18999-1) NPI:[id number] 22:47:30 Test Item Value Reference Range Interpretation Comments POC-GLUCOSE METER 106 mg/dL 70-110 : TESTED A T [facility] 6720 (BEAKER) (test code = SHAUN Villeda [facility], 1538) [address]: Anchor Tacker/Techni sowmya ID = [id number] for WALE FITZPATRICK C1Q class 1 & 2 [id number] 17:38:21 Test Item Value Reference Range Interpretation Comments Interpretation (test code ADDITIONAL ANTIBODY = 3227195) INFORMATION:DQ7 = DQB1*03:01; DQA1*05:03DQ7 = DQB1*03:19; DQA1*05:05DQ7 = DQB1*03:01; DQA1*06:01DQ9 = DQB1*03:03; DQA1*02:01DQ9 = DQB1*03:03; DQA1*03:02DQ8 = DQB1*03:02; DQA1*03:01DQ8 = DQB1*03:02; DQA1*03:02 Case number (test code = [id number]) C1Q class 1 & 2 antibody See link below for (test code = 4064345) PDF [facility], [facility], lung volumes, [id number] 19:27:26 Test Item Value Reference Range Interpretation [...] Predicted (test code = 67.9 % 5368) [facility] [id number] 13:53:30 Test Item Value Reference Range Interpretation Comments POC glucose (test code = 124 mg/dL 65-99 H Ope rator Name: [id number]) Clint Bustamante RDevice ID: [id number] able : [facility] Notified industrial organization manager Interpretation (test Abnormal code = 27250-8) [facility] antigen [id number] 11:33:46 Test Item Value Reference Range Interpretation Comments SAB interpretation (test Additional Antibody code = 5950) Information:DQ2=DQB1 *02:01/DQA1*04:01, DQB1*02:01/DQA1*05:0 2VZ6=HZX8*04:02/DQA1 *04:41PF8=OXR8*03:01 /DPA1*01:03, DPB1*03:01/DPA1*02:0 7GJ6=VOC9*04:02/DPA1 *01:22BN51=LMA2*28:0 1/DPA1*01:03 SAB serum ID (test code = [id number] 5866) [facility] serum collection D&T 08/23/2021 05:49 AM (test code = 5867) SAB class I antibody A11,A74,A32,A3,A31,A assignment (test code = 30,A36,A1,A29,A66,A8 5870) 0,A26,A25,A43,A34,A3 3,B82 SAB cPRA class I (test code = 5868) SAB class II antibody DR18,DR17,DR13,DR14, assignment (test code = DR52,DR11,DR8,DQ7,DR 5871) 12,DQ9,DR9,DR7,DQ8,D Q2,DR4,DQ4,DP2,DP14, DP4,DP9,DP10,DP18,DP 20,DP17,DP3,DP28 SAB cPRA class II (test code = 5869) Case number (test code = [id number]) Single antigen beads See link below for (test code = 4604) PDF [facility], [id number] 20:20:55 Test Item Value Reference Range Interpretation Comments Collection start date, urine (test 08/23/21 code = 63471-9) Collection start time, urine (test 8:40 code = 17962-6) Collection stop date, urine (test 08/24/21 code = 02352-2) Collection stop time, urine (test 8:40 code = 01082-1) Hours of collection (test code = 98619-6) Total volume, urine (test code = 800 mL 30295-7) Urine protein concentration (test 7 mg/dL code = 54164-7) Urine protein excretion (test code = mg/vol 2448) [facility], [id number] 20:20:52 Test Item Value Reference Range Interpretation Comments Collection start date, urine (test 08/23/21 code = 71187-6) Collection start time, urine (test 8:40 code = 79672-7) Collection stop date, urine (test 08/24/21 code = 50295-9) Collection stop time, urine (test 8:40 code = 17837-1) Hours of collection (test code = 96542-3) Total volume, urine (test code = 800 mL 02010-1) Urine creatinine concentration 114 mg/dL (test code = 91516-7) Urine creatinine excretion (test mg/vol code = 89641-5) [facility] 12 [id number] 15:33:38 Test Item Value Reference Range Interpretation Comments Ventricular rate (test code = 253) Atrial rate (test code = 255) AK interval (test code = 266) QRSD interval [...] out Inferior infarct , age undetermined-Abnormal ECG- [facility] transplant [id number] 14:27:40 Test Item Value Reference Range Interpretation Comments HLA transplant evaluation See link below for (test code = 28602-9) PDF Lab Report Case number (test code = [id number]) [facility] ED Preliminary Interpretation - Not an [id number] 02:54:33 Test Item Value Reference Range Interpretation Comments REJI (test code = REJI) Orlando Balderrama MD 08/17/2021 10:33 [facility] ED Preliminary Interpretation - Not an OrderPerformed by: Orlando Balderrama MDAuthorized by: Orlando Balderrama MD ECG reviewed by ED Physician in the absence of a insights manager: yes Interpretation: Interpretation: abnormal Rate: ECG rate: 80 ECG rate assessment: normal Rhythm: Rhythm: sinus rhythm QRS: QRS axis: Normal QRS intervals: NormalST segments: ST segments: NormalOther findings: Other findings: prolonged qTc interval Lab Interpretation Abnormal (test code = 72629-5) [facility]
--- NOTE | 2021-12-18 00:13 | ER ---
Nurse's Notes [facility] Name: Bella Barron Age: 61 yrs Sex: Female : 1960 Arrival Date: 12/17/2021 Time: 19:14 Bed Waiting Private MD: Diagnosis: Presentation: 12/17 19:54 Chief complaint: Patient states: she is having a bad headache x 2 days which is bb worsening, her head is pounding, she is nauseated, her hands and feet are tingly she has history of migraines and is taking ubrelvy which is not working. Coronavirus screen: At this time, the client does not indicate any symptoms associated with coronavirus-19. Ebola Screen: No symptoms or risks identified at this time. Initial Sepsis Screen: Does the patient meet any 2 criteria? No. Patient's initial sepsis screen is negative. Does the patient have a suspected source of infection? No. Patient's initial sepsis screen is negative. Risk Assessment: Do you want to hurt yourself or someone else? Patient reports no desire to harm self or others. Onset of symptoms was December 16, 2021. 19:54 Method Of Arrival: Ambulatory bb 19:54 Acuity: OLEG 3 bb Triage Assessment: 19:56 Headache History: The patient has had previous headaches and this one is more severe bb than previous episodes. General: Appears in no apparent distress. uncomfortable, Behavior is cooperative. Pain: Complains of pain in headache Pain currently is 8 out of 10 on a pain scale. Pain began 1 day ago. Also complains of nausea. Neuro: Level of Consciousness is awake, alert, obeys commands, Oriented to person, place, time, situation. Cardiovascular: Capillary refill < 3 seconds Patient's skin is warm and dry. Respiratory: Respiratory effort is unlabored, Respiratory pattern is regular. GI: Reports nausea. Derm: Skin is pink, warm \T\ dry. Musculoskeletal: Circulation, motion, and sensation intact. Historical: - Allergies: 19:56 Iodine; bb 19:56 Phenergan; bb 19:56 Rocephin; bb - PMHx: 19:56 Cirrhosis; Crohn's; Colitis; Depression; Liver disease; needs kidney and liver bb transplant; ocd; - PSHx: 19:56 Cholecystectomy; bb - Immunization history:: Client reports receiving the Abiodun \T\ Abiodun single-dose vaccine. - Social history:: Smoking status: Patient denies any tobacco usage or history of. Vital Signs: 19:54 BP 126 / 63; Pulse 94; Resp 16 S; Temp 98.1(O); Pulse Ox 100% on R/A; Weight 77.56 kg romero (R); Height 4 ft. 11 in. (149.86 cm) (R); Pain 8/10; 19:54 Body Mass Index 34.54 (77.56 kg, 149.86 cm) romero ED Course: 19:14 Patient arrived in ED. liane 19:56 Triage completed. bb 19:56 Arm band placed on Patient placed in waiting room, Patient notified of wait time. bb Family accompanied patient. 05 00:12 Patient's name was called from ER lobby. No response. Unable to locate patient. Will bb disposition as left without being seen by a provider. Administered Medications: No medications were administered Outcome: 00:12 Patient left the ED. romero Signatures: Erica Batista RN RN Penny Saul
[2021-12-18 00:52] VITALS: BP 126/63; TEMP 98.1; O2SAT 100
== END 2021-12-18 00:12 | disposition left against medical advice (07) ==
LOC: ER 19:11
DX: Z53.21 Procedure and treatment not carried out due to patient leaving prior to being seen by health care provider (principal)
CPT/HCPCS: 99281

== ENCOUNTER 2021-12-25 17:33 | Emergency (ER) | payer OTHER ==
--- OUTSIDE RECORDS SUMMARY | 2021-12-25 17:41 | XMS REPORT | Continuity of Care Document ---
:1960 Author Organization [facility] t Address [address] [place] [address] Care Team Providers Name Role Phone Robby [...] Alberto Kovacs DO Attending Clinician Mildred FRANKLIN, F. Attending Clinician Ping Garcia MD Attending Clinician Curry Gutierrez DO Attending Clinician Gus Azevedo MD Attending Clinician Gabriel Perez MD Attending Clinician Daija HERRON, S Attending Clinician ROLANDO Admitting Clinician Unavailable ELAINA LAWRENCE Admitting Clinician Unavailable TING PIERSON Admitting Clinician Unavailable DAVINA Admitting Clinician Unavailable CHELA Admitting Clinician Unavailable Payers Payer Name Policy Type Policy Number Effective Date Expiration Date Faustino vasquez MEDICARE A B [id number] 2015 00:00:00 GENERIC MEDICAID [id number] 2021 HMO 00:00:00 Problems Condition Condition Condition Status Onset Resolution Last Treating Co mments Source Name Details Category Date Date Treatment Clinician Date Altered Altered Disease Active [facility] status status [facility] 00 [facility] SBP SBP Disease Active [facility] (spontaneo (spontaneo 1 st us us 00:00: Hospita bacterial bacterial 00 l peritoniti peritoniti s) s) Debility Debility Disease Active [facility] di 1 st 00:00: Hospita 00 l Mobility Mobility Disease Active [facility] di impaired impaired 1 st 00:00: Hospita 00 l Metabolic Metabolic Disease Active Met hodi acidosis acidosis 1 st 00:00: Hospita 00 l Preoperati Preoperati Disease Active Overview : Methodi ve ve 1-[address] clearance clearance 00:00: g of this H ospita 00 note l might be different from the original. Added automatic ally from request for surgery [id number] Chronic Chronic Disease Active 2020-08 [facility] kidney kidney 0-15 st disease disease 00:00: Hospita 00 l SBP SBP Disease Active 2020-08 [facility] (spontaneo (spontaneo 013 st us us 00:00: Hospita bacterial bacterial 00 l [...] Weakness Disease Active Metho di generalize generalize 608 st d d 00:00: Hospita 00 l Confusion Confusion Disease Active Met hodi 3 st 00:00: Hospita 00 l Acute Acute Disease Active 2018-08 [facility] hepatic hepatic 1 st encephalop encephalop 00:00: Ho spita athy athy 00 l Slurred Slurred Disease Active [facility] speech speech 05-08 st 00:00: Hospita 00 l CAM (acute CAM (acute Disease Active M ethodi kidney kidney 05-08 st injury) injury) 00:00: Hospita 00 l UTI UTI Disease Active [facility] (urinary (urinary 04-14 tract tract 00:00: Hospita infection) infection) 00 l Altered Altered Disease Active [facility] mental mental 03-19 status, status, 00:00: Hospita unspecifie unspecifie 00 l d d Obesity Obesity Disease Active Univers (BMI (BMI 7-26 ity of 30-39.9) 30-39.9) 00:00: [place] 00 Medical Branch Hematochez Hematochez Disease Active U nivers ia ia 7 ity of 00:00: [place] [address] Medical Branch Abdominal Abdominal Disease Active Met hodi pain pain 11-12 st 00:00: Hospita 00 l Weakness Weakness Disease Active Metho di 08-20 st 00:00: Hospita 00 l Chest pain [...] Disease Active M ethodi kidney kidney 08-20 st injury) injury) 00:00: Hospita 00 l Disorder Disorder Disease Active Metho di of liver of liver 08-20 00:00: Hospita 00 l Liver Liver Disease Active 2017-08 [facility] cirrhosis cirrhosis 09-04 00:00: Hospita 00 l Acute Acute Disease Active [facility] hepatic hepatic 10-05 st encephalop encephalop 00:00: Ho spita athy athy 00 l Hematochez Hematochez Disease Active M ethodi ia ia 12-11 00:00: Hospita 00 l Melena Melena Disease Active Overview: Method i 12-[address] 00:00: g of this Hospita 00 note l might be different from the original. Added automatic ally from request for surgery [id number] Bipolar Bipolar Disease Active Methodi disorder, disorder, 10-09 unspecifie unspecifie 00:00: Ho spita d d 00 l Persistent Persistent Disease Active M ethodi depressive depressive 10-09 st disorder disorder 00:00: Hospit a 00 l Alcoholic Alcoholic Disease Active Met hodi cirrhosis cirrhosis 09-12 st of liver of liver 00:00: Hospit a 00 l 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 09-13 it y of ath 00:00: [address] Branch Hepatic Hepatic Disease Active 2015-08 [facility]i encephalop encephalop 08-26 st athy athy 00:00: Hospita 00 l S/P TIPS S/P TIPS Disease Active Metho di (transjugu (transjugu 05-08 lar lar 00:00: Hospita intrahepat intrahepat 00 [...] Right Right Disease Active Univers shoulder shoulder 12-04 ity of pain pain 00:00: [place] [facility] 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 12-01 ity of 00:00: [place] 00 Medical Branch Anxiety Anxiety Disease Active Univers and and 12-01 ity of depression depression 00:00: [place] [facility] Rectal Rectal Disease Active 2014-08 Univers bleed bleed 09-14 ity of 00:00: [place] 00 Medical Branch Crohn Crohn Disease Active [facility] disease disease [facility] Allergies, Adverse Reactions, Alerts Allergy Allergy Status Severity Reaction(s) Onset Inactive Treating Comm ents Source Name Type Date Date Clinician FISH Allergy Active [facility] CONTAINI 2- NG 00:00: PRODUCTS 00 SHELLFIS Allergy Active [facility] H 2 CONTAINI 00:00: NG 00 PRODUCTS Eggshell Drug Active [facility] Membrane Allergy 09-07 [facility] 00:00: Medical 00 [place] EGGSHELL Allergy Active [facility] MEMBRANE - 00:00: 00 CEFTRIAX Allergy Active [facility] ONE 09-02 [facility] 00:00: Medical 00 [place] IODINE Allergy Active [facility] 09-02 [facility]: Medical 00 [place] PROMETHA Allergy Active [facility] ZINE 09-02 [facility] 00:[facility]: Medical 00 [place] Ceftriax Propensi Active [facility] one ty to 09-02 [facility] adverse 00:00: Medical reaction 00 Center s Iodine Propensi Active [facility] ty to 09-02 [facility] adverse 00:00: Medical reaction 00 Center s Prometha Propensi Active [facility] zine ty to 09-02 [facility] adverse 00:00: Medical reaction 00 Center s Ciproflo Propensi Active Hives 2020-08 Method i xacin ty to 0-13 st adverse 00:00: Hospita reaction 00 l s to drug Ceftriax Propensi Active Itching Metho di one ty to 2 st adverse 00:00: Hospita reaction 00 l s to drug Ceftriax Propensi Active Itching 2018-0 Unive rs one ty to 2-25 ity of adverse 00:00: [place] reaction 00 Medical s Branch Prometha Propensi Active Other - See 0 Severe U nivers zine ty to comments 3-27 confusion ity o f adverse 00:00: [place] reaction 00 Medical s Branch Eggshell Propensi Active Diarrhea 2017-0 Egg yoke Me thodi Membrane ty to 2-27 st adverse 00:00: Hospita reaction 00 l s to drug Eggshell Propensi Active Diarrhea 2016-0 Egg yoke Un linda Membrane ty to 2-27 ity of adverse 00:00: [place] reaction 00 [facility] [place] Prometha Propensi Active Other (See 0 Severe Me thodi zine ty to Comments) 1- confusion st adverse 00:00: Hospita reaction 00 l s to drug Shellfis Propensi Active Anaphylaxis 0 M ethodi h ty to 9 st Derived adverse 00:00: Hospita reaction 00 l s to drug Shellfis Propensi Active Anaphylaxis 0 U nivers h ty to 924 ity of Derived adverse 00:00: [place] reaction 00 [facility] Iodine Propensi Active [facility]aphylaxis [facility] st adverse 00:00: "my Hospita reaction 00 throat l s to closes drug up."*pt states cannot have topical nor IV Iodine Propensi Active Anaphylaxis Uni vers ty to 8-18 ity of adverse 00:00: [place] reaction 00 [facility] NO KNOWN Allergy Active [facility] ALLERGIE S Phenerga Adverse Active Info Not Commo n n Reaction Available [facility] Iodine Adverse Active Info Not Common Reaction Available [facility] Family History Family Member Diagnosis Comments Start Date Stop Date Source Natural father No Known Problems Met [facility] Natural mother No Known Problems Met [facility] Social History Social Habit Start Date Stop Date Quantity Comments Source History SDOH [facility]ism Alcohol Frequency Hospita l History SDOH [facility]ism Alcohol Std Drinks Hospit al History SDOH [facility] Alcohol Binge Hospital Exposure to Not sure University of SARS-CoV-2 (event) [facility] Alcohol intake 2021-08-30 2021-08-30 Ex-drinker [facility] 00:00:00 00:00:00 (finding) Hospital Tobacco use and 2019-01-30 2019-01-30 Never used Universit y of exposure 00:00:00 00:00:00 [facility] History of tobacco 1979-01-30 2018-08-12 Cigarette Smoker University of use 00:00:00 00:00:00 [facility] Cigarettes smoked 2016-11-22 2016-11-[address] current (pack per 00:00:00 00:00:00 Hospita l day) - Reported Cigarette 2016-11-22 2016-11-22 [facility] pack-years 00:00:00 00:00:00 Hospital Tobacco Comment 2016-09-12 2016-09-12 smokes 5 [facility] 00:00:00 00:00:00 cigarettes per Hospital day Alcohol Comment 2016-05-02 2016-05-02 Former social Method ist 00:00:00 00:00:00 alcohol use, quit Hospita l several years ago; denies history of heavy alcohol use Sex Ass[birth year] At [birth year] [facility] 00:00:00 00:00:00 Hospital Smoking Status Start Date Stop Date Source Never smoker [facility] Ex-smoker 2016-11-22 00:00:00 2016-11-[facility]ations Ordered Filled Start Stop Current Ordering Indication Dosage Frequency Signature Comments Components Source Medication Medication Date Date Medication? Clinician (SIG) Name Name estradioL Yes [id number] Apply 1g Univers (ESTRACE) - vaginally ity o f 0.01 % (0.1 00:00: at bedtime [place] mg/gram) 00 every Medical vaginal night for Branch cream 2 weeks and then apply 1g vaginally at bedtime 3 times per week (Saturday//) nystatin Yes [id number] Apply to U nivers (NYSTOP) 2-21 area(s) 3 ity of 100,000 00:00: (three) [place] unit/gram 00 times Medical powder daily. Branch methylnaltr Yes Take by Un linda exone 2-16 mouth. ity of bromide 14:28: [place] (RELISTOR 49 Medical ORAL) Branch potassium Yes Take by [facility] ers (POTASSIMIN 2-16 mouth once it y of ORAL) 14:28: now. [address] spironolact 0 Yes 100mg Take 100 U nivers one 100 mg 2-16 mg by ity of tablet 14:28: mouth. [address] cyanocobala Yes 1000ug Inject [facility] min 1-24 1,000 mcg [facility] (VITAMIN 16:29: subcutaneo Med ical B-12) 1,000 58 usly every Ce nter mcg/mL 30 injection (thirty) days. ondansetron 0 Yes 4mg Take [address] (ZOFRAN) 4 1-24 by mouth 2 Alejo es MG tablet 16:28: (two) Medical 14 times Center daily as needed for Nausea. ubrogepant 0 Yes 100mg Take [address] (Ubrelvy) 1-24 mg by [facility] 100 mg Tab 16:27: mouth 2 Medi cj 54 (two) Center times daily as needed. pantoprazol 0 Yes 1{tbl} QD Take [address] e 1-24 tablet by [facility] (PROTONIX) 16:27: mouth Medica l 40 MG 53 daily. Center tablet QUEtiapine 0 Yes 1{tbl} QD Take [address] (SEROqueL) 1-24 tablet by Luke s 50 MG 16:27: mouth Medical tablet 53 nightly. Center rifAXIMin 0 Yes 1{tbl} Q.5D Take [address] (Xifaxan) 1-24 tablet by [facility] 550 mg Tab 16:27: mouth 2 Medi cj 53 (two) Center times daily. spironolact 0 Yes 25mg QD Take [address] one 1-24 by mouth [facility] (ALDACTONE) 16:27: daily. Medi cj 50 MG 53 Center tablet thiamine 0 Yes 1{tbl} QD Take 1 [facility]I S t 100 MG 1-24 tablet by [facility] tablet 16:27: mouth Medical 53 daily. Center topiramate 0 Yes 1{tbl} QD Take [address] (TOPAMAX) 1-24 tablet by [facility] 50 MG 16:27: mouth Medical tablet 53 nightly. Center eszopiclone 0 Yes 2mg Take [address] (LUNESTA) 2 1-24 by mouth Luke s MG tablet 16:27: every Medical 52 night as Center needed. gabapentin Yes 1{capsu Q.5D Take [address] (NEURONTIN) 1-24 le} capsule by Susanna leong 300 MG 16:27: mouth 2 Medical capsule 52 (two) Center times daily. lactulose Yes 1{packe Q.[id number] Take [address] (Kristalose 1-24 t} [id number] packet by Gurpreet ) 20 gram 16:27: 3D mouth 3 Medic al packet 52 (three) Center times daily. azithromyci 2021- No 500mg QD Take 1 Me thodi n 1-[address] (ZITHROMAX) 00:00: 05:59 (500 [...] 40mg QD Take 40 mg Methodi e [address] (PROTONIX) 18:28: 00:00 daily. Hosp page 40 MG EC 02 :00 l tablet lactulose 2021-0 2021- No 1{packe Q.25D Take 1 M ethodi (Kristalose -14 -14 t} packet by st ) 20 gram 18:28: 00:00 mouth 4 Hosp page packet 50 :00 (four) l times a day. Goal 2-4 bowel movements per day QUEtiapine 0 2021- No 50mg QD Take 50 mg Methodi (SEROqueL) -25 08-[address] 50 MG 18:28: 00:00 daily. Hospita tablet 50 :00 l gabapentin 2022-0 Yes 300mg Q.5D Take 300 Me thodi (NEURONTIN) 1-[address] 300 mg 18:28: mouth 2 Hospita capsule 49 (two) l times a day. Also may take 1 additional dose as needed at bedtime spironolact 2022-0 Yes 50mg QD Take 50 mg Methodi one 1-[address] (ALDACTONE) 18:28: daily. Hosp page 50 MG 49 l tablet cetirizine 2-0 Yes 10mg QD Take 10 mg M ethodi (ZyrTEC) 10 1-[address] MG tablet 18:28: every Hospita 48 morning. l cyanocobala 2-0 Yes 1000ug Q30D Inject Me thodi min 1,000 1-14 1,[address] mcg/mL 18:28: into the Hospita injection 48 shoulder, l thigh, or buttocks every 30 (thirty) days. riFAXimin 2022-0 Yes 550mg Q.5D Take 550 Met hodi (XIFAXAN) 1-[address] 550 mg 18:28: mouth 2 Hospita tablet 48 (two) l times a day. ubrogepant 2022-0 Yes 100mg Q.5D Take 100 Me thodi (Ubrelvy) 1-[address] 100 mg 18:28: mouth 2 Hospita tablet 48 (two) l times a day as needed (headache) . clonAZEPAM 2022-0 Yes .5mg Q24H Take 0.5 Met hodi (KlonoPIN) 1-[address] 0.5 MG 18:28: mouth Hospita tablet 48 daily as l needed for anxiety. Per [facility] on Drug Monitoring Program records: Last filled: 11/06/20 Quantity: 30 Days Supply: 30 topiramate 2022-0 Yes 50mg Q.5D Take 50 mg M ethodi (TOPAMAX) 1-[address] 50 MG 18:28: (two) Hospita tablet 48 times a l day. benztropine 2022-0 Yes .25mg Q.5D Take 0.25 Methodi (COGENTIN) 1-[address] 0.5 MG 18:28: mouth 2 Hospita tablet 48 (two) l times a day. primidone 2022-0 Yes 25mg QD Take 25 mg Me thodi (MYSOLINE) 1-[address] 50 MG 18:28: nightly. Hospita tablet 48 l eszopiclone Yes 3mg QD Take 3 mg M ethodi (LUNESTA) 3 1-[address] mg tablet 18:28: nightly. Hosp page 48 Per [place] l Prescripti on Drug Monitoring Program records: Last filled: 08/09/21 Quantity: 30 Days Supply: 30 traMADoL Yes 50mg Q4H Take 50 mg Met hodi (ULTRAM) 50 1-[address] mg tablet 18:28: every 4 Hospi ta 48 (four) l hours as needed for moderate pain. Per [place] Prescripti on Drug Monitoring Program records: Last filled: 01/16/21 Quantity: 30 Days Supply: 5 zinc 2021- No 1{capsu QD Take 1 Methodi sulfate -11 0211 le} capsule by st (ZINCATE) 00:00: 05:59 mouth Hospit a 50 mg zinc 00 :00 daily for l (220 mg) 30 days. capsule thiamine 2021- No 100mg QD Take 100 Met hodi mononitrate -10 01-[address] , vit B1, 10:29: 00:00 mouth Hospit a (B-1) 100 47 :00 daily. l mg tablet QUEtiapine 2021- No 50mg QD Take 50 mg Methodi (SEROquel) 1-10 01-[address] 200 MG 10:29: 00:00 nightly. Hospit a tablet 47 :00 l SUMAtriptan Yes [id number] 50mg Q24H Take 1 Methodi (Imitrex) 1-10 tablet (50 st 50 MG 00:00: mg total) Hospita tablet 00 by mouth l daily as needed for migraine for up to 30 doses. May repeat in 2 hours if unresolved . Max dose 200 mg/day escitalopra 2021- No 10mg QD Take 1 Met hodi m (LEXAPRO) 1-10 02-10 tablet (10 s t 10 MG 00:00: 05:59 mg total) Hospit a tablet 00 :00 by mouth l nightly for 30 days. pantoprazol 2021- No [id number] 40mg QD Take 1 Methodi e 08-21 tablet (40 st (PROTONIX) 00:00: 05:59 mg total) H ospita 40 MG EC 00 :00 by mouth l tablet every morning for 30 days. QUEtiapine 2021- No 50mg QD Take 1 Meth erasto (SEROquel) 08-21 tablet (50 st 50 MG 00:00: 05:59 mg total) Hospit a tablet 00 :00 by mouth l nightly for 30 days. thiamine 2021- No 100mg QD Take 1 Metho di mononitrate 08-[address] , vit B1, 00:00: 05:59 (100 mg Hosp page (B-1) 100 00 :00 total) by l mg tablet mouth daily for 30 days. lactulose 2021- No 20g Q.25D Take 1 Meth erasto (Kristalose 08-21 packet (20 s t ) 20 gram 00:00: 05:59 g total) Hos lis packet 00 :00 by mouth 4 l (four) times a day for 30 days. SUMAtriptan 2021- TAKE AT Me thodi (IMITREX) 08-[address] 100 MG 09:56: 00:00 HEADACHE. Hospi ta tablet 24 :00 MAY REPEAT l IN 2 HOURS IF NO RELIEF. MAXIMUM OF 2 IN 24 HOURS. Oral furosemide 2021- No 20mg Take 20 mg Methodi (LASIX) 20 08-[address] mg tablet 09:53: 00:00 Hospita 21 :00 l escitalopra 2021- No 10mg Take 10 mg Methodi m (LEXAPRO) 08-[address] 10 MG 09:53: 00:00 Hospita tablet 08 :00 l cyanocobala 2021- No 1000ug Take 1,000 Methodi min 08-[address] (VITAMIN 09:52: 00:00 mouth. Hospit a B-12) 1000 53 :00 l MCG tablet benztropine 2021- No 1 tablet M ethodi (COGENTIN) 08-19 [...] QD Take 3 mg Methodi (LUNESTA) 3 10-[address] mg tablet 14:16: 00:00 nightly. Hos lis 40 :00 Take l immediatel y before bedtime eszopiclone 2020-08 No 1mg QD Take 1 Met hodi (LUNESTA) 1 -22 tablet (1 st MG tablet 00:00: 05:59 mg total) Ho spita 00 :00 by mouth l nightly for 30 days. Take immediatel y before bedtime ondansetron 2020-08 No Metho di (ZOFRAN) 4 0-11 10-08 st MG tablet 00:00: 00:00 Hospita 00 :00 l zinc No 220mg QD Take 1 Methodi sulfate 3-15 04-[address] (ZINCATE) 00:00: 04:59 (220 mg Hosp page 220 (50) mg 00 :00 total) by l capsule mouth daily for 30 days. methylPREDN No follow Met hodi ISolone 10-09-07 package [...] No 220mg QD Take 1 Methodi sulfate 2-11 03-[address] (ZINCATE) 00:00: 00:00 (220 mg Hosp page 220 (50) mg 00 :00 total) by l capsule mouth daily for 30 days. eszopiclone 1mg QD Take 1 mg Methodi (LUNESTA) 1 09-[address] MG tablet 14:27: 00:00 nightly. Hos lis 44 :00 Take l immediatel y before bedtime topiramate No 50mg QD Take 1 Meth erasto (TOPAMAX) 09-02 tablet (50 st 50 MG 00:00: 00:00 mg total) Hospit a tablet 00 :00 by mouth l daily. furosemide 20mg QD Take 1 Meth erasto (LASIX) 20 08-13 tablet (20 st mg tablet 00:00: 00:00 mg total) Ho spita 00 :00 by mouth l daily for 30 days. escitalopra No 10mg QD Take 1 Met hodi m (LEXAPRO) 08-13 tablet (10 s t 10 MG 00:00: 00:00 mg total) Hospit a tablet 00 :00 by mouth l nightly. primidone 25mg QD Take 0.5 Met hodi (MYSOLINE) 08-[address] 50 MG 00:00: 00:00 (25 mg Hospita tablet 00 :00 total) by l mouth nightly. May cut tablet in 1/2 half brexpiprazo 2mg QD Take 1 Met hodi le 08-13 tablet (2 st (Rexulti) 2 00:00: 05:59 mg total) Hospita mg tablet 00 :00 by mouth l tablet daily for 30 days. QUEtiapine 50mg QD Take [...] times a day for 30 days. gabapentin 2021- No 300mg Q.[id number] Take 1 Methodi (NEURONTIN) 04-[id number] 300 mg 00:00: 00:00 3D (300 mg Hospita capsule 00 :00 total) by l mouth 3 (three) times a day for 30 days. pantoprazol 2021- No [id number] 40mg QD Take 1 Methodi e 01-24 tablet (40 st (PROTONIX) 00:00: 00:00 mg total) H ospita 40 MG EC 00 :00 by mouth l tablet every morning. SUMAtriptan 2021- No [id number] 50mg Q24H Take 1 Methodi (Imitrex) 01-24 [...] 03-09 by mouth ity of 16:42: at [place] [address] bedtime. Medical Branch GABAPENTIN Yes Take by Uni vers ORAL 03-09 mouth. ity of 16:42: [place] [address] Medical Branch traMADOL 50 Yes 50mg Take 50 mg Univers mg tablet 03-09 by mouth ity of 16:42: as needed [place] [address] for Pain Medical (scale Branch 7-10). lactulose Yes [id number] 20g Take 1 Un linda (KRISTALOSE - Packet by ity of ) 20 gram 00:00: mouth 3 [place] packet 00 (three) Medical times Branch daily. ondansetron Yes [id number] 8mg Take 2 Univers 4 mg tablet 4-01 tablets by it y of 00:00: mouth [place] 00 every 8 Medical (eight) Branch hours as needed for Nausea and Vomiting (N/V). butalbital- Yes [id number] 1{capsu Take 1 Univers aspirin-caf 3-25 le} capsule by it y of feine 00:00: mouth [place] 50-325-40 00 every 4 Medical mg per (four) Branch capsule hours as needed for Pain (headache unrelieved wtih other medication s). XIFAXAN 550 2016-08 Yes [id number] TAKE ONE Univers mg tablet 1-27 TABLET BY ity o f 00:00: MOUTH 2 [place] 00 TIMES A Medical DAY Branch PANTOPRAZOL 2016-08 Yes [id number] TAKE ONE Univers E 40 mg EC [...] mouth. ity of tablet 00:00: [place] 00 [facility] Branch Allopurinol Allopurinol Yes Fernando 2 tablets Common [facility] Immunizations Ordered Filled Immunization Date Status Comments Sour e Immunization Name Name Influenza Virus 2021-04-12 Completed Universit y of Vaccine 00:00:00 [facility] SARS-COV-2 COVID-19 2020-12-14 Completed Unive rsity of YANIRA/J&J VACCINE 00:00:00 [facility] [place] [facility] Influenza Virus 2018-04-21 Completed Universit y of Vaccine (3+ yrs) 00:00:00 [facility] 2018-04-21 Completed [facility] Preservative Free 00:00:00 Hospita l Pneumococcal 13 2016-05-08 Completed Universit y of Conjugate, PCV13 00:00:00 [place] Me dical (Prevnar 13) Branch Pneumococcal 2016-05-08 Completed [facility] Conjugate 13-Valent 00:00:00 Hospi mateo FLUCELVAX QUAD PF 2016-05-[address] 00:00:00 Hospital Vital Signs Vital Name Observation Time Observation Value Comments Source Systolic blood 2021-11-16 18:59:00 111 mm[Hg] Univer sity of [email or web address] Diastolic blood 2021-11-16 18:59:00 74 mm[Hg] Unive rsity [facility] Heart rate 2021-11-16 18:59:00 75 /min [facility] Body temperature 2021-11-16 18:59:00 36.67 [facility] height 2021-11-16 18:59:00 149.9 cm [facility] Body weight 2021-11-16 18:59:00 80.559 kg [facility] BMI 2021-11-16 18:59:00 35.87 kg/m2 [facility] HEIGHT 2021-09-02 15:44:00 149.9 cm WEIGHT 2021-09-02 15:44:00 87.091 kg HEIGHT 2021-09-02 15:44:00 149.9 cm WEIGHT 2021-09-02 15:44:00 87.091 kg Systolic blood 2021-09-11 19:42:00 125 mm[Hg] [facility] Diastolic blood 2021-09-11 19:42:00 60 mm[Hg] [facility] Heart rate 2021-09-11 19:42:00 98 /min [facility] Body temperature 2021-09-11 19:42:00 35.67 [facility] Respiratory rate 2021-09-11 19:42:00 18 /min [facility] Oxygen saturation in 2021-09-11 19:42:00 100 /min [facility] Arterial blood by Medical Ce nter Pulse oximetry Body height 2021-09-02 15:44:00 149.9 cm [facility] Body weight 2021-09-02 15:44:00 87.091 kg [facility] BMI 2021-09-02 15:44:00 38.78 kg/m2 [facility] Systolic blood 2021-08-31 06:30:00 119 mm[Hg] [facility] pressure Diastolic blood 2021-08-31 06:30:00 68 mm[Hg] [facility] pressure Heart rate 2021-08-31 06:30:00 70 /min [facility] Respiratory rate 2021-08-31 06:30:00 16 /[facility] Oxygen saturation in 2021-08-31 06:30:00 97 /min [facility] Arterial blood by Pulse oximetry Body temperature 2021-08-31 04:04:09 36.83 [facility] Body height 2021-08-31 04:04:00 149.9 cm [facility] Body weight 2021-08-31 04:04:00 89.359 kg [facility] BMI 2021-08-31 04:04:00 39.79 kg/m2 [facility] Procedures Procedure Date / Time Performing Clinician Source Performed HEPATIC FUNCTION PANEL 2021-09[facility]11 05[facility] 2021-09-11 05:[facility] 2021-09-11 05:33:00 Niya Cartagena [facility] BASIC METABOLIC PANEL (7) 2021-09-11 05:33:00 Niya Cartagena [facility] MAGNESIUM 2021-09-11 05:33:00 Selma Lu [facility] CBC W/PLT COUNT & AUTO 2021-09-11 05:33[facility] 2021-09-10 06:52:00 Niya Cartagena [facility] CBC W/PLT COUNT & AUTO 2021-09-10 06:52:00 Niya Cartagena [facility] PROTHROMBIN TIME/INR 2021-09-10 06:52:00 Niya Cartagenaison [facility] BASIC METABOLIC PANEL (7) 2021-09-10 06:52:00 Henry Cartagenalizulma Haile on [facility] MAGNESIUM 2021-09-10 06:52:00 Selma Lu [facility] CBC W/PLT COUNT & AUTO 2021-09-10 06:52:00 [facility] 2021-09-09 05:51:00 KaimHenryNiyazulma White [facility] CBC W/PLT COUNT & AUTO 2021-09-09 05:51:00 [facility]aim [facility] PROT[facility] TIME/INR 2021-09-09 05:51:00 Kaim Niya Cindy [facility] BASIC METABOLIC PANEL (7) 2021-09-09 05:51:00 Kaim Niya Allalireza [facility] CBC W/PLT COUNT & AUTO 2021-09-09 05:51:[address] [facility] (CELLAVISION MANUAL DIFF) 2021-09-09 05:51:00 Lizzjag Niya Allalireza [facility] AMMONIA 2021-09-08 10:54:00 Selma Lu [facility] PHOSPHORUS 2021-09-08 05:14:00 Zara Mason [facility] HEPATIC FUNCTION PANEL 2021-09-08 05:14:00 [facility] & AUTO 2021-09-08 05:14:[address] [facility] PROTHROMBIN TIME/INR 2021-09-08 05:14:00 Mitzi Niya Cindy [facility] BASIC METABOLIC PANEL (7) 2021-09-08 05:14:00 Kaim Niyalilian Haile on [facility] CBC W/PLT COUNT & AUTO 2021-09-08 05:14:[address] [facility] (CELLAVISION MANUAL DIFF) 2021-09-08 05:14:00 MitziHenryNiya Allalireza on [facility] PHOSPHORUS 2021-09-07 05:37:00 Gianna Masonnalini [facility] HEPATIC FUNCTION PANEL 2021-09-07 05:37:00 Kaim Niyalilian Torrezison [facility] CBC W/PLT COUNT & AUTO 2021-09-07 05:37:[address] [facility] PROTHROMBIN TIME/INR 2021-09-07 05:37:00 Kaim Niyalilian Torrezison [facility] BASIC METABOLIC PANEL (7) 2021-09-07 05:37:00 Kaim Niyalilian Haile on [facility] CBC W/PLT COUNT & AUTO 2021-09-07 05:37:[address] [facility] (CELLAVISION MANUAL DIFF) 2021-09-07 05:37:00 Kaim Niya Allalireza on [facility] PROTHROMBIN TIME/INR 2021-09-06 06:37:00 Kaim Niyalilian Torrezison [facility] BASIC METABOLIC PANEL (7) 2021-09-06 06:37:00 IsabellaGianna kennedynalin i [facility] PHOSPHORUS 2021-09-06 06:37:00 Gianna Masonnalini [facility] PROTHROMBIN TIME/INR 2021-09-05 14:31:00 Niya Cartagena CH [facility] BASIC METABOLIC PANEL (7) 2021-09-05 14:31:00 Isabella, Mrinalin i [facility] PHOSPHORUS 2021-09-05 14:31:00 Gianna Masonnalini [facility] CBC W/PLT COUNT & AUTO 2021-09-05 14:31:00 Zara Mason C [facility] HEPATIC FUNCTION PANEL 2021-09-05 14:31:00 Zara Mason C [facility] CBC W/PLT COUNT & AUTO 2021-09-05 14:31:00 Zara Mason C [facility] (CELLAVISION MANUAL DIFF) 2021-09-05 14:31:00 Gianna Masonnalin i [facility] C. DIFFICILE GDH TOXIN 2021-09-04 11:52:00 Britney Vitalea Rayna [facility] CT ABDOMEN/PELVIS WITH IV 2021-09-04 09:03:00 Mirian Goodman mar [facility] CONTRAST [facility] CT CHEST WITH IV CONTRAST 2021-09-04 09:03:00 Juve Masonin i [facility] CBC W/PLT COUNT & AUTO 2021-09-04 04:39:[address] [facility] COMPREHENSIVE METABOLIC 2021-09-04 04:39:[address] [facility] MAGNESIUM 2021-09-04 04:39:00 Lucia Lawrence [facility] PHOSPHORUS 2021-09-04 04:39:00 Lucia Lawrence [facility] CBC W/PLT COUNT & AUTO 2021-09-04 04:39:[address] [facility] (CELLAVISION MANUAL DIFF) 2021-09-04 04:39:00 Lucia Lawrence sa [facility] HEPATITIS B SURFACE 2021-09-03 12:02:00 Zara Mason [facility] ANTIBODY [facility] HEPATITIS B SURFACE 2021-09-03 12:02:00 Zara Mason [facility] ANTIGEN [facility] HEPATITIS C ANTIBODY 2021-09-03 12:02:00 Zara Mason [facility] HEPATITIS A ANTIBODY, IGG 2021-09-03 12:02:00 Gianna Masonnalin i [facility] HEPATITIS B CORE ANTIBODY, 2021-09-03 12:02:00 Laura Mason ni [facility] CBC W/PLT COUNT & AUTO 2021-09-03 12:01:[address] [facility] COMPREHENSIVE METABOLIC 2021-09-03 12:01:[address] [facility] MAGNESIUM 2021-09-03 12:01:00 Lucia Lawrence [facility] PHOSPHORUS 2021-09-03 12:01:00 Lucia Lawrence [facility] PROTHROMBIN TIME/INR 2021-09-03 12:01:[address] [facility] CBC W/PLT COUNT & AUTO 2021-09-03 12:01:[address] [facility] (CELLAVISION MANUAL DIFF) 2021-09-03 12:01:00 Lucia Lawrence sa [facility] BLOOD CULTURE 2021-09-03 11:59:00 Lucia Lawrence [facility] OVA AND PARASITE 2021-09-02 09:44:00 Troy Awad Isrikail [facility] GI PATHOGEN PROFILE BY PCR 2021-09-02 09:44:00 Delmi, Troy Bladimir il [facility] BLOOD CULTURE 2021-09-02 06:03:00 Lucia Lawrence [facility] CBC W/PLT COUNT & AUTO 2021-09-02 06:03:[address] [facility] COMPREHENSIVE METABOLIC 2021-09-02 06:03:[address] [facility] MAGNESIUM 2021-09-02 06:03:00 Lucia Lawrence [facility] PHOSPHORUS 2021-09-02 06:03:00 Lucia Lawrence [facility] C-REACTIVE PROTEIN 2021-09-02 06:03:00 Lucia Lawrence [facility] CBC W/PLT COUNT & AUTO 2021-09-02 06:03:[address] [facility] (CELLAVISION MANUAL DIFF) 2021-09-02 06:03:00 Lucia Lawrence [facility] IRON, TIBC, % SAT. 2021-09-02 06:01:00 Lucia Lawrence [facility]OUT FERRITIN[facility] AND FOLATE 2021-09-02 06:01:00 Lucia Lawrence [facility] CT BRAIN WITHOUT IV 2021-09-02 02:39:00 Lucia Lawrence [facility] CONTRAST [facility] US ABDOMEN LIMITED 2021-09-02 02:09:00 [facility] 2021-09-02 01:29:00 Lucia Lawrence [facility] URINALYSIS W/ REFLEX URINE 2021-09-02 01:29:00 Lucia Lawrence [facility] XR CHEST 1 VIEW PORTABLE / 2021-09-02 01:02:00 Lucia Lawrence [facility] BEDSIDE [facility] CBC W/PLT COUNT & AUTO 2021-09-01 22:55:00 [facility], VENOUS 2021-09-01 22:55:00 [facility] PT/APTT 2021-09-01 22:55:00 [facility] HEPATIC FUNCTION PANEL 2021-09-01 22:55:00 Lucia Lawrence [facility] BASIC METABOLIC PANEL (7) 2021-09-01 22:55:00 Lucia Lawrence [facility] MAGNESIUM 2021-09-01 22:55:00 [facility] 2021-09-01 22:55:00 [facility] CBC W/PLT COUNT & AUTO 2021-09-01 22:55:00 Lucia Lawrence [facility] (CELLAVISION MANUAL DIFF) 2021-09-01 22:55:00 Lucia Lawrence [facility] POCT-GLUCOSE METER 2021-09-01 22:36:00 Dawna Anguiano [facility] CT ABDOMEN PELVIS WO 2021-08-31 05:50:00 [facility] CONTRAST [facility] HC COMPLETE BLD COUNT 2021-08-31 04:21:00 [facility] W/AUTO DIFF [facility] COMPREHENSIVE METABOLIC 2021-08-31 04:21:00 [facility] PANEL [facility] LACTIC ACID, I-STAT 2021-08-31 04:21:00 [facility] ESTIMATED GFR 2021-08-31 04:21:00 [facility] SPIROMETRY, DIFFUSION, 2021-08-25 19:27:[facility]UM[facility], MIPS/MEPS XR CHEST 2 VW 2021-08-25 18:00:20 [facility] XR PANOREX 2021-08-25 17:59:56 [facility] POC GLUCOSE 2021-08-25 13:51:00 Jennifer Ghosh spital SALEEM-POSEY VIRUS 2021-08-25 11:08:00 [facility] ANTIBODY TEST HC COMPLETE BLD COUNT 2021-08-25 11:08:00 Davina Jennifer [facility] W/AUTO DIFF COMPREHENSIVE METABOLIC 2021-08-25 11:08:00 [facility] PROTHROMBIN TIME WITH INR 2021-08-25 11:08:00 Davina Jennifer [facility] ESTIMATED GFR 2021-08-25 11:08:00 Jennifer Ghosh Ho spital POC GLUCOSE 2021-08-25 03:18:00 Jennifer Ghosh Ho spital POC GLUCOSE 2021-08-25 00:22:00 Jennifer Ghosh Ho spital POC GLUCOSE 2021-08-24 19:43:00 Jennifer Ghosh spital CREATININE LEVEL, URINE, 2021-08-24 18:13:00 Jennifer Ghosh [facility] TIMED PROTEIN, URINE, TIMED 2021-08-24 18:13:00 Jennifer Ghosh [facility] CV SELECTIVE CORONARY 2021-08-24 16:44:00 Cabrera Fierro [facility] ANGIOGRAPHY [place] HC COMPLETE BLD COUNT 2021-08-24 11:01:00 Ting Pierson [facility] W/AUTO DIFF [facility] BASIC METABOLIC PANEL 2021-08-24 11:01:00 Ting Pierson [facility] HEPATIC FUNCTION PANEL 2021-08-24 11:01:00 [facility]NESIUM LEVEL 2021-08-24 11:01:00 Alma Girard spimateo Self PROTHROMBIN TIME WITH INR 2021-08-24 11:01:00 [facility]FR 2021-08-24 11:01:00 Alma Girard spital [facility] POC GLUCOSE 2021-08-24 03:07:00 Jennifer Ghosh Ho spital POC GLUCOSE 2021-08-24 00:11:00 Jennifer Ghosh COVID-19 QUALITATIVE 2021-08-23 22:15:00 Dayo Moeller [facility] RT-PCR POC GLUCOSE 2021-08-23 19:17:00 Jennifer Ghosh Ho spital POC GLUCOSE 2021-08-23 14:05:00 Jennifer Ghosh Ho spital HC COMPLETE BLD COUNT 2021-08-23 11:49:00 Ting Pierson [facility] W/AUTO DIFF [facility] BASIC METABOLIC PANEL 2021-08-23 11:49:00 Ting Pierson [facility] HEPATIC FUNCTION PANEL 2021-08-23 11:49:00 [facility] MAGNESIUM LEVEL 2021-08-23 11:49:00 Alma Girard [facility] PROTHROMBIN TIME WITH INR 2021-08-23 11:49:00 [facility] ALPHA FETOPROTEIN 2021-08-23 11:49:00 [facility] ALPHA-1 ANTITRYPSIN LEVEL 2021-08-23 11:49:00 [facility] ANTI SMOOTH MUSCLE AB 2021-08-23 11:49:00 [facility] SCREEN C-REACTIVE PROTEIN 2021-08-23 11:49:00 [facility] CANCER ANTIGEN 125 2021-08-23 11:49:00 [facility] CANCER ANTIGEN 19-9 2021-08-23 11:49:00 [facility] CARCINOEMBRYONIC ANTIGEN 2021-08-23 11:49:00 [facility] (CEA) CERULOPLASMIN LEVEL 2021-08-23 11:49:00 [facility] CORTISOL LEVEL, RANDOM 2021-08-23 11:49:00 [place] CORTISOL, FREE BY 2021-08-23 11:49:00 [facility] ED/LC-MS/MS CYTOMEGALOVIRUS AB, IGG 2021-08-23 11:49:00 [facility] CYTOMEGALOVIRUS AB, IGM 2021-08-23 11:49:00 [facility] DRUG KIM 9, SER/THAIS, SCRN 2021-08-23 11:49:00 [facility] W/RFLX TO CONF FERRITIN LEVEL 2021-08-23 11:49:00 [facility] FIBRINOGEN 2021-08-23 11:49:00 [facility] HEPATITIS A ANTIBODY IGM 2021-08-23 11:49:00 [facility] HEPATITIS A ANTIBODY TOTAL 2021-08-23 11:49:00 [facility] HEPATITIS B CORE ANTIBODY 2021-08-23 11:49:00 [facility] TOTAL HEPATITIS B SURFACE 2021-08-23 11:49:00 [facility] ANTIBODY HEPATITIS B SURFACE 2021-08-23 11:49:00 [facility] ANTIGEN HEPATITIS C ANTIBODY 2021-08-23 11:49:00 [facility] AG/AB COMBINATION 2021-08-23 11:49:00 [facility] HIV-1 RNA, QUALITATIVE TMA 2021-08-23 11:49:00 [facility] HLA TRANSPLANT EVALUATION 2021-08-23 11:49:00 [facility] LIPID PANEL 2021-08-23 11:49:00 [facility] BARBITURATES, S/P, QUANT 2021-08-23 11:49:00 [facility] PARTIAL THROMBOPLASTIN 2021-08-23 11:49:00 [place] TIME (PTT) PHOSPHATIDYLETHANOL, BLOOD 2021-08-23 11:49:00 [facility] PHOSPHORUS LEVEL 2021-08-23 11:49:00 [facility] PREALBUMIN LEVEL 2021-08-23 11:49:00 [facility] SERUM ELECTROPHORESIS 2021-08-23 11:49:00 [facility] SYPHILIS TREPONEMA SCREEN 2021-08-23 11:49:00 [facility] WITH RPR CONFIRMATION (REVERSE ALGORITHM) T3, FREE 2021-08-23 11:49:00 [facility] TB T-SPOT 2021-08-23 11:49:00 [facility] TOTAL IRON BINDING 2021-08-23 11:49:00 [facility] CAPACITY ZINC LEVEL, SERUM 2021-08-23 11:49:00 [facility] ESTIMATED GFR 2021-08-23 11:49:00 Alma Girard SINGLE ANTIGEN BEADS 2021-08-23 11:49:00 [facility] C1Q CLASS 1 & 2 ANTIBODY 2021-08-23 11:49:[address] [facility] [address] CHEST WO CONTRAST 2021-08-23 04:25:00 Calos Garcia [facility] POC GLUCOSE 2021-08-23 02:55:00 Jennifer Ghoshtal US CAROTID DUPLEX 2021-08-23 02:40:00 Calos Garcia [facility] BILATERAL TTE COMPLETE, WO CONTRAST, 2021-08-22 23:47:00 [facility] W AGITATED SALINE ([id number]) US ABDOMEN COMPLETE 2021-08-22 22:30:00 Calos Garcia [facility] ECG 12-LEAD 2021-08-22 21:31:09 [facility] POC GLUCOSE 2021-08-22 13:43:00 Jennifer Ghoshtal HC COMPLETE BLD COUNT 2021-08-22 10:59:00 [facility]/AUTO DIFF [facility] BASIC METABOLIC PANEL 2021-08-22 10:59:00 [facility] HEPATIC FUNCTION PANEL 2021-08-22 10:59:00 [facility] L[facility] 2021-08-22 10:59:00 Alma Girard [facility] PHOSPHORUS LEVEL 2021-08-22 10:59:00 Alma Girard ospimateo Self PROTHROMBIN TIME WITH INR 2021-08-22 10:59:00 [facility] ESTIMATED GFR 2021-08-22 10:59:00 Alma Girardtal [facility] POC GLUCOSE 2021-08-22 03:06:00 Jennifer Ghosh Ho spital POC GLUCOSE 2021-08-22 00:27:00 Jennifer Ghosh Ho spital POC GLUCOSE 2021-08-21 19:09:00 Jennifer Ghosh Ho spital POC GLUCOSE 2021-08-21 13:46:00 Alma Girardtal [facility] HC COMPLETE BLD COUNT 2021-08-21 10:56:00 [facility] W/AUTO DIFF [facility] BASIC METABOLIC PANEL 2021-08-21 10:56:00 Ting Pierson [facility] HEPATIC FUNCTION PANEL 2021-08-21 10:56:00 [facility] MAGNESIUM LEVEL 2021-08-21 10:56:00 Alma Girard Ho spital [facility] PHOSPHORUS LEVEL 2021-08-21 10:56:00 Alma Girard H ospital [facility] PROTHROMBIN TIME WITH INR 2021-08-21 10:56:00 [facility] 2021-08-21 10:56:00 Alma Girard Ho spital [facility] POC GLUCOSE 2021-08-21 03:20:00 Alma Girard spital [facility] POC GLUCOSE 2021-08-20 14:56:00 Jennifer Ghosh Ho spital HC COMPLETE BLD COUNT 2021-08-20 10:57:00 Ting Pierson [facility] W/AUTO DIFF [facility] BASIC METABOLIC PANEL 2021-08-20 10:57:00 Ting Pierson [facility] HEPATIC FUNCTION PANEL 2021-08-20 10:57:00 [facility] MAGNESIUM LEVEL 2021-08-20 10:57:00 Alma Girard spital [facility] PHOSPHORUS LEVEL 2021-08-20 10:57:00 Alma Girard ospital [facility] PROTHROMBIN TIME WITH INR 2021-08-20 10:57:00 [facility] ESTIMATED GFR 2021-08-20 10:57:00 Alma Girard spital [facility] POC GLUCOSE 2021-08-20 02:42:00 Alma Girard Ho spital [facility] POC GLUCOSE 2021-08-19 20:04:00 Alma Girard spital [facility] HC COMPLETE BLD COUNT 2021-08-19 11:38:00 Ting Pierson [facility] W/AUTO DIFF [facility] BASIC METABOLIC PANEL 2021-08-19 11:38:00 Ting Pierson [facility] HEPATIC FUNCTION PANEL 2021-08-19 11:38:00 [facility] MAGNESIUM LEVEL 2021-08-19 11:38:00 Alma Girard PHOSPHORUS LEVEL 2021-08-19 11:38:00 Alma iGrard ossheldon Self PROTHROMBIN TIME WITH INR 2021-08-19 11:38:00 [facility] GFR 2021-08-19 11:38:00 Alma Girard POC GLUCOSE 2021-08-19 03:14:00 Ting Alma Pierson POC GLUCOSE 2021-08-18 23:30:00 Ting Alma Pierson POC GLUCOSE 2021-08-18 15:37:00 Ting Alma Pierson URINE CULTURE 2021-08-18 12:53:00 Ting Alma Pierson URINALYSIS SCREEN AND 2021-08-18 11:31:00 [facility] MICROSCOPY, WITH REFLEX TO [facility] CULTURE LACTIC ACID LEVEL, SEPSIS 2021-08-18 10:21:00 Orlando Balderrama [facility] - NOW AND REPEAT 2X EVERY 3 HOURS HC COMPLETE BLD COUNT 2021-08-18 10:21:00 [facility] W/AUTO DIFF [facility] BASIC METABOLIC PANEL 2021-08-18 10:21:00 [facility] HEPATIC FUNCTION PANEL 2021-08-18 10:21:00 [facility] MAGNESIUM LEVEL 2021-08-18 10:21:00 Ting Alma Pierson PHOSPHORUS LEVEL 2021-08-18 10:21:00 Ting Alma Pierson ospimateo Self PROTHROMBIN TIME WITH INR 2021-08-18 10:21:00 [facility] ESTIM[facility] GFR 2021-08-18 10:21:00 [facility] Alma Pierson LACTIC ACID LEVEL, SEPSIS 2021-08-18 07:56:00 [facility] - NOW AND REPEAT 2X EVERY 3 HOURS BLOOD CULTURE, AEROBIC & 2021-08-18 05:00:00 [facility] ECG 12-LEAD 2021-08-18 04:24:[address] [facility] [address] ABDOMEN PELVIS WO 2021-08-18 04:19:[address] [facility] [address] HEAD WO CONTRAST 2021-08-18 04:18:21 [facility] LACTIC ACID LEVEL, SEPSIS 2021-08-18 03:37:00 [facility] - NOW AND REPEAT 2X EVERY 3 HOURS B NATRIURETIC PEPTIDE 2021-08-18 03:37:00 [facility] PROTHROMBIN TIME WITH INR 2021-08-18 03:20:00 [facility] AMMONIA LEVEL 2021-08-18 03:20:00 [facility] TROPONIN T 2021-08-18 03:20:00 [facility] XR CHEST 1 VW PORTABLE 2021-08-18 03:14:19 [facility] HC COMPLETE BLD COUNT 2021-08-18 03:03:00 [facility] W/AUTO DIFF COMPREHENSIVE METABOLIC 2021-08-18 03:03:00 [facility] PANEL ESTIMATED GFR 2021-08-18 03:03:00 [facility] RESPIRATORY PATHOGEN PANEL 2021-08-18 03:03:00 [facility] WITH COVID-19 RT-PCR ECG ED PRELIMINARY 2021-08-18 02:54:33 [facility] INTERPRETATION COVID-19 QUALITATIVE 2021-08-11 05:31:00 [facility] RT-PCR [place] COMPREHENSIVE METABOLIC 2021-08-11 05:30:00 [facility] PANEL [facility] HC COMPLETE BLD COUNT 2021-08-11 05:30:00 [facility] W/AUTO DIFF [facility] LACTIC ACID, I-STAT 2021-08-11 05:30:00 [facility] ESTIMATED GFR 2021-08-11 05:30:00 [facility] ECG 12-LEAD 2021-08-11 05:15:35 [facility] URINALYSIS 2021-08-11 05:00:00 [facility] XR CHEST 1 VW PORTABLE 2021-08-11 04:27:00 [facility] LACTIC ACID, I-STAT 2021-06-28 22:37:00 Romero Limon [facility] URINALYSIS 2021-06-28 21:45:00 Romero Limon yusuftal HC COMPLETE BLD COUNT 2021-06-28 20:01:00 Romero Limon [facility] W/AUTO DIFF PROTHROMBIN TIME WITH INR, 2021-06-28 20:01:00 Romero Limon [facility] I-STAT COMPREHENSIVE METABOLIC 2021-06-28 20:01:00 [facility] PANEL LACTIC ACID, I-STAT 2021-06-28 20:01:00 Romero Limon [facility] SEDIMENTATION RATE 2021-06-28 20:01:00 Romero Limon [facility] ESTIMATED GFR 2021-06-28 20:01:00 Romero Limon spital COVID-19 QUALITATIVE 2021-06-28 20:01:00 [facility] BLOOD CULTURE, AEROBIC & 2021-06-28 20:01:00 Romero Limon [facility] ANAEROBIC HC COMPLETE BLD COUNT 2021-06-21 11:20:00 Dinakar, [facility] W/AUTO DIFF [facility] BASIC METABOLIC PANEL 2021-06-21 11:20:00 Dinakar, [facility] HEPATIC FUNCTION PANEL 2021-06-21 11:20:00 Dinakar, [facility] MAGNESIUM LEVEL 2021-06-21 11:20:00 Dinakar, [facility] PROTHROMBIN TIME WITH INR 2021-06-21 11:20:00 Dinakar, [facility] PHOSPHORUS LEVEL 2021-06-21 11:20:00 Dinakar, Pierce Marquez ospital [facility] ESTIMATED GFR 2021-06-21 11:20:00 Dinakar, Pierce Marquez [facility] PHOSPHATIDYLETHANOL, BLOOD 2021-06-21 11:20:00 [facility] URINE DRUGS OF ABUSE 2021-06-21 10:11:00 [facility] SCREEN URINALYSIS SCREEN AND 2021-06-21 10:10:00 [facility] MICROSCOPY, WITH REFLEX TO CULTURE URINE CULTURE 2021-06-21 10:10:00 [facility] COVID-19 SEROLOGY PATIENT 2021-06-20 17:52:00 Dinakar, [facility] SURVEILLANCE [facility] COVID-19 ANTI-SPIKE IGG 2021-06-20 17:52:00 Dinakar, [facility] ANTIBODY TITER [facility] HC COMPLETE BLD COUNT 2021-06-20 11:03:00 Dinakar, [facility] W/AUTO DIFF [facility] BASIC METABOLIC PANEL 2021-06-20 11:03:00 Dinakar, [facility] HEPATIC FUNCTION PANEL 2021-06-20 11:03:00 Dinakar, [facility] MAGNESIUM LEVEL 2021-06-20 11:03:00 Dinakar, Pierce Marquez [facility] PROTHROMBIN TIME WITH INR 2021-06-20 11:03:00 Dinakar, [facility] PHOSPHORUS LEVEL 2021-06-20 11:03:00 Pierce Marshall ospital Erika ESTIMATED GFR 2021-06-20 11:03:00 Pierce Marshall Erika XR ABDOMEN 1 VW PORTABLE 2021-06-20 00:11:00 Annette Mayorga [facility] AMMONIA LEVEL 2021 11:27:00 Jennifer Ghosh spital HC COMPLETE BLD COUNT 2021 11:24:00 [facility]FF PROTHROMBIN TIME WITH INR 2021 11:24:00 [facility] METABOLIC 2021 11:24:00 [facility] PHOSPHORUS LEVEL 2021 11:24:00 Jennifer Ghosh ospital MAGNESIUM LEVEL 2021 11:24:00 Jennifer Ghosh spital HEMOGLOBIN A1C 2021 11:24:00 Davina Jennifer Yazidism spital THYROID STIMULATING 2021 11:24:00 [facility] HORMONE T4 2021 11:24:00 Davina Jennifer Yazidism Ho spital VITAMIN D 25 HYDROXY LEVEL 2021 11:24:00 [facility] ESTIM[facility] GFR 2021 11:24:00 Jennifer Ghosh spital LACTIC ACID, I-STAT 2021 01:31:00 [facility] COVID-19 QUALITATIVE 2021 01:21:00 Diana Bangura [facility] RT-PCR CLOSTRIDIUM DIFFICILE 2021 00:30:00 Diana Bangura [facility] TOXIN ENTERIC BACTERIAL PANEL 2021 00:30:00 Diana Bangura [facility] URINALYSIS 2021 00:09:00 Diana Bangura [facility] METABOLIC 2021-06-18 22:51:00 Diana Bangura Bin [facility] PANEL AMYLASE LEVEL 2021-06-18 22:51:00 Willem, Diana [facility] ESTIMATED GFR 2021-06-18 22:51:00 Diana Bangura [facility] HC COMPLETE BLD COUNT 2021-06-18 21:51:00 Diana Bangura [facility] W/AUTO DIFF COMPREHENSIVE METABOLIC 2021-06-18 21:51:00 [facility] LACTIC ACID, I-STAT 2021-06-18 21:51:00 Jennifer Ghosh [facility] AMYLASE LEVEL 2021-06-18 21:51:00 Diana Bangura [facility] ESTIMATED GFR 2021-06-18 21:51:00 [facility] 2021-06-18 21:47:00 [facility] MAGNESIUM LEVEL 2021-06-02 09:45:00 [facility]ital ESTIMATED GFR 2021-06-02 09:45:00 [facility] HC COMPLETE BLD COUNT 2021-06-02 09:45:00 [facility] W/AUTO DIFF PROTHROMBIN TIME WITH INR 2021-06-02 09:45:00 [facility] BASIC METABOLIC PANEL 2021-06-02 09:45:00 [facility] HEPATIC FUNCTION PANEL 2021-06-02 09:45:00 [facility] PHOSPHORUS LEVEL 2021-06-02 09:45:00 [facility] US ABDOMINAL LIMITED 2021-06-01 21:06:20 Joana Ling [facility] VENIPUNC NEED PHYS 2021-06-01 14:32:45 Linda Torres [facility] SKILL,DX OR RX HC COMPLETE BLD COUNT 2021-06-01 10:30:00 [facility] W/AUTO DIFF PROTHROMBIN TIME WITH INR 2021-06-01 10:30:00 [facility] BASIC METABOLIC PANEL 2021-06-01 10:30:00 [facility] HEPATIC FUNCTION PANEL 2021-06-01 10:30:00 [facility] PHOSPHORUS LEVEL 2021-06-01 10:30:00 [facility] MAGNESIUM LEVEL 2021-06-01 10:30:00 [facility] HEMOGLOBIN A1C 2021-06-01 10:30:00 [facility] THYROID STIMULATING 2021-06-01 10:30:00 [facility] HORMONE T4 2021-06-01 10:30:00 [facility] VITAMIN D 25 HYDROXY LEVEL 2021-06-01 10:30:00 [facility] ZINC LEVEL, SERUM 2021-06-01 10:30:00 [facility] ALPHA FETOPROTEIN 2021-06-01 10:30:00 [facility] AMMONIA LEVEL 2021-06-01 10:30:00 [facility] ESTIMATED GFR 2021-06-01 10:30:00 [facility] PHOSPHATIDYLETHANOL, BLOOD 2021-06-01 10:30:00 [facility] URINE CULTURE 2021-06-01 02:48:00 [facility] BLOOD [facility], AEROBIC & 2021-06-01 02:43:00 [facility] ANAEROBIC BLOOD CULTURE, AEROBIC & 2021-06-01 02:42:00 [facility] ANAEROBIC URINALYSIS SCREEN AND 2021-06-01 02:40:00 [facility] MICROSCOPY, WITH REFLEX TO CULTURE URINE DRUGS OF ABUSE 2021-06-01 02:40:[address] [facility] SCREEN URIC ACID LEVEL 2021-06-01 02:38:00 [facility] PROTHROMBIN TIME WITH INR 2021-06-01 02:38:00 [facility] PHOSPHORUS LEVEL 2021-06-01 02:38:00 [facility] PARTIAL THROMBOPLASTIN 2021-06-01 02:38:00 [facility] TIME (PTT) MAGNESIUM LEVEL 2021-06-01 02:38:00 [facility] HEPATIC FUNCTION PANEL 2021-06-01 02:38:00 [facility] LDH 2021-06-01 02:38:00 [facility] LACTIC ACID LEVEL 2021-06-01 02:38:00 [facility] FIBRINOGEN 2021-06-01 02:38:00 [facility] HC COMPLETE BLD COUNT 2021-06-01 02:38:00 [facility] W/AUTO DIFF BASIC METABOLIC PANEL 2021-06-01 02:38:00 [facility] AMMONIA LEVEL 2021-06-01 02:38:00 [facility] ESTIMATED GFR 2021-06-01 02:38:00 [facility] COVID-19 SEROLOGY PATIENT 2021-06-01 02:38:00 [facility] SURVEILLANCE COVID-19 ANTI-SPIKE IGG 2021-06-01 02:38:00 [facility] ANTIBODY TITER ECG 12-LEAD 2021-06-01 01:06:10 [facility] XR ABDOMEN 1 VW PORTABLE 2021-06-01 01:06:00 [facility] XR CHEST 1 VW PORTABLE 2021-06-01 01:02:00 [facility] COVID-19 QUALITATIVE 2021-06-01 00:37:[address] [facility] RT-PCR HC COMPLETE BLD COUNT 2021-05-27 10:09:00 Jayesh Girard [facility] W/AUTO DIFF Aramis BASIC METABOLIC PANEL 2021-05-27 10:09:00 [facility] 2021-05-27 10:09:00 [facility] MAGNESIUM LEVEL 2021-05-27 10:09:00 Alma Girard spital Aramis PHOSPHORUS LEVEL 2021-05-27 10:09:00 Alma Girard ospimateo Aramis PROTHROMBIN TIME WITH INR 2021-05-27 10:09:00 [facility]FR 2021-05-27 10:09:00 Alma Girard Aramis VENOUS BLOOD GAS 2021-05-26 23:37:00 Lucia Faustin COMPLETE BLD COUNT 2021-05-26 09:02:00 [facility] W/AUTO DIFF [facility] PROTHROMBIN TIME WITH INR 2021-05-26 09:02:00 [facility] COVID19 SEROLOGY PATIENT 2021-05-26 09:02:00 Abe Partida [facility] SURVEILLANCE Tom SMEAR REVIEW 2021-05-26 09:02:00 [facility] PHOSPHAT[facility], BLOOD 2021-05-26 09:02:00 [facility] ANTI-SPIKE IGG 2021-05-26 09:02:00 [facility] ANTIBODY TITER Tom BASIC METABOLIC PANEL 2021-05-26 09:00:00 [facility] HEPATIC FUNCTION PANEL 2021-05-26 09:00:00 [facility] MAGNESIUM LEVEL 2021-05-26 09:00:00 Alma Girard Aramis PHOSPHORUS LEVEL 2021-05-26 09:00:00 Alma Girard [facility] ALPHA FETOPROTEIN 2021-05-26 09:00:[facility] ZINC LEVEL, SERUM 2021-05-26 09:00:00 [facility] ESTIMATED GFR 2021-05-26 09:00:00 Alma Girard shane Aramis URINALYSIS SCREEN AND 2021-05-25 23:41:00 [facility] Dangelo [facility] MICROSCOPY, WITH REFLEX TO Aramis CULTURE URINE DRUGS OF ABUSE 2021-05-25 23:41:00 Ting Pierson [facility] SCREEN Aramis URINE CULTURE 2021-05-25 23:41:00 Alma Girard spimateo Self US HEPATIC 2021-05-25 20:43:26 Alma Girard US ABDOMINAL DOPPLER 2021-05-25 20:40:00 [facility] HC COMPLETE BLD COUNT 2021-05-25 18:10:00 [facility] Dangelo [facility] W/AUTO DIFF [facility] SMEAR REVIEW 2021-05-25 18:10:00 [facility] 2021-05-25 15:59:39 Tristin Hunt [facility] SKILL,DX OR RX CBC WITH PLATELET AND 2021-05-25 13:57:00 [facility] DIFFERENTIAL [facility] COMPREHENSIVE METABOLIC 2021-05-25 13:57:00 [facility] PANEL Aramis ESTIMATED GFR 2021-05-25 13:57:[address] [facility] LACTIC ACID, I-STAT 2021-05-25 00:58:00 Romero Limon [facility] COVID-19 QUALITATIVE 2021-05-25 00:00:00 Romero Limon [facility] RT-PCR CT ABDOMEN PELVIS WO 2021-05-24 23:16:57 Romero Limon [facility] CONTRAST URINALYSIS 2021-05-24 22:19:00 Romero Limon [facility] HC COMPLETE BLD COUNT 2021-05-24 22:13:00 Romero Limon [facility] W/AUTO DIFF COMPREHENSIVE METABOLIC 2021-05-24 22:13:00 [facility] PANEL AMYLASE LEVEL 2021-05-24 22:13:00 Romero Limon spital LACTIC ACID, I-STAT 2021-05-24 22:13:00 Romero Limon [facility] ESTIMATED GFR 2021-05-24 22:13:00 [facility] BLOOD CULTURE, AEROBIC & 2021-05-24 22:00:00 Romero Limon [facility] ANAEROBIC CBC HEMOGRAM 2020-11-23 05:55:00 [facility]idism[facility] PROTHROMBIN TIME WITH INR 2020-11-23 05:55:00 [facility] Aramis COMPREHENSIVE METABOLIC 2020-11-23 05:55:00 [facility] PANEL Aramis ESTIMATED GFR 2020-11-23 05:55:00 [facility] COVID-19 QUALITATIVE 2020-11-23 01:57:00 Wild Kovacs [facility] RT-PCR Tomiwa LACTIC ACID, I-STAT 2020-11-23 01:40:00 Romero Limon [facility] CT HEAD WO CONTRAST 2020-11-22 23:20:00 Romero Limon [facility] HC COMPLETE BLD COUNT 2020-11-22 22:53:00 Romero Limon [facility] W/AUTO DIFF COMPREHENSIVE METABOLIC 2020-11-22 22:53:00 [facility]on [facility] PANEL LACTIC ACID, I-STAT 2020-11-22 22:53:00 Romero Limon [facility] AMMONIA LEVEL 2020-11-22 22:53:00 Romero Limon spital VENOUS BLOOD GAS 2020-11-22 22:53:00 Romero Limon H ospital ESTIMATED GFR 2020-11-22 22:53:00 Romero Limon spital XR ABDOMEN ACUTE INC CHEST 2020-11-02 22:51:00 Cliff Levy [facility] 1V ESTIMATED GFR 2020-11-02 21:55:00 [facility] HC COMPLETE BLD COUNT 2020-11-02 21:55:00 [facility] W/AUTO DIFF COMPREHENSIVE METABOLIC 2020-11-02 21:55:00 [facility] PANEL PROTHROMBIN TIME WITH INR 2020-11-02 21:55:00 [facility] COVID-19 QUALITATIVE 2020-11-02 21:05:00 [facility] RT-PCR NM BRAIN SPECT W I 123 2020-10-26 19:02:00 Cliff Levy [facility] DATSCAN HC COMPLETE BLD COUNT 2020-10-24 10:15:00 [facility] W/AUTO DIFF BASIC METABOLIC PANEL 2020-10-24 10:15:00 [facility] HEPATIC FUNCTION PANEL 2020-10-24 10:15:00 [facility] MAGNESIUM LEVEL 2020-10-24 10:15:00 [facility]ital PHOSPHORUS LEVEL 2020-10-24 10:15:00 [facility] PROTHROMBIN TIME WITH INR 2020-10-24 10:15:00 [facility] HEMOGLOBIN A1C 2020-10-24 10:15:00 [facility] THYROID STIMULATING 2020-10-24 10:15:00 [facility] HORMONE T4 2020-10-24 10:15:00 [facility] VITAMIN D 25 HYDROXY LEVEL 2020-10-24 10:15:00 [facility] ZINC LEVEL, SERUM 2020-10-24 10:15:00 [facility] ALPHA FETOPROTEIN 2020-10-24 10:15:00 [facility] ESTIMATED GFR 2020-10-24 10:15:00 [facility]ital URINE DRUGS OF ABUSE 2020-10-24 10:00:[address] [facility] SCREEN LACTIC ACID LEVEL, SEPSIS 2020-10-24 06:20:00 [facility] - NOW AND REPEAT 2X EVERY 3 HOURS LACTIC ACID LEVEL, SEPSIS 2020-10-24 02:25:00 [facility] - NOW AND REPEAT 2X EVERY 3 HOURS XR CHEST 1 VW PORTABLE 2020-10-24 00:08:00 Rehrer, [facility] BLOOD CULTURE, AEROBIC & 2020-10-23 23:31:00 Rehrer, [facility] ANAEROBIC RESPIRATORY PATHOGEN PANEL 2020-10-23 23:31:00 Rehrer, [facility] WITH COVID-19 RT-PCR COMPREHENSIVE METABOLIC 2020-10-23 23:31:00 Rehrer, [facility] PANEL PHOSPHORUS LEVEL 2020-10-23 23:31:00 Rehrer, [facility] MAGNESIUM LEVEL 2020-10-23 23:31:00 Rehrer, [facility] LACTIC ACID LEVEL, SEPSIS 2020-10-23 23:31:00 [facility] - NOW AND REPEAT 2X EVERY 3 HOURS LIPASE LEVEL 2020-10-23 23:31:00 Rehrer, [facility] ESTIMATED GFR 2020-10-23 23:31:00 Rehrer, [facility] HC COMPLETE BLD COUNT 2020-10-23 23:20:00 Rehrer, [facility] W/AUTO DIFF PROTHROMBIN TIME WITH INR 2020-10-23 23:20:00 Rehrer, [facility] PARTIAL THROMBOPLASTIN 2020-10-23 23:20:00 Rehrer, [facility] TIME (PTT) AMMONIA LEVEL 2020-10-23 23:20:00 Rehrer, [facility] HC COMPLETE BLD COUNT 2020-10-10 00:05:00 Fabian Azevedo [facility] W/AUTO DIFF COMPREHENSIVE METABOLIC 2020-10-10 00:05:00 [facility] PANEL LACTIC ACID, I-STAT 2020-10-10 00:05:00 [facility] AMMONIA LEVEL 2020-10-10 00:05:00 [facility] ESTIMATED GFR 2020-10-10 00:05:00 [facility] URINALYSIS 2020-10-09 23:32:00 [facility] ECG 12-LEAD 2020-10-09 23:18:11 [facility] HC COMPLETE BLD COUNT 2020-09-21 10:28:00 [facility] W/AUTO DIFF BASIC METABOLIC PANEL 2020-09-21 10:28:00 [facility] HEPATIC FUNCTION PANEL 2020-09-21 10:28:00 [facility] MAGNESIUM LEVEL 2020-09-21 10:28:00 [facility]ital PHOSPHORUS LEVEL 2020-09-21 10:28:00 [facility] PROTHROMBIN TIME WITH INR 2020-09-21 10:28:00 [facility] MISCELLANEOUS REFERRAL 2020-09-21 10:28:00 [facility] TEST VITAMIN B12 LEVEL 2020-09-21 10:28:00 [facility] FOLATE LEVEL 2020-09-21 10:28:00 [facility]ital ESTIMATED GFR 2020-09-21 10:28:00 [facility]ital COVID-19 QUALITATIVE 2020-09-20 20:51:00 Robby Perez [facility] RT-PCR Gabriel HC COMPLETE BLD COUNT 2020-09-20 12:08:00 [facility] W/AUTO DIFF BASIC METABOLIC PANEL 2020-09-20 12:08:00 [facility] HEPATIC FUNCTION PANEL 2020-09-20 12:08:00 [facility] MAGNESIUM LEVEL 2020-09-20 12:08:00 [facility] PHOSPHORUS LEVEL 2020-09-20 12:08:00 [facility] PROTHROMBIN TIME WITH INR 2020-09-20 12:08:00 [facility] HEMOGLOBIN A1C 2020-09-20 12:08:00 [facility]ital THYROID STIMULATING 2020-09-20 12:08:00 [facility] HORMONE T4 2020-09-20 12:08:00 [facility]ital VITAMIN D 25 HYDROXY LEVEL 2020-09-20 12:08:00 [facility] ZINC LEVEL, SERUM 2020-09-20 12:08:00 [facility] ALPHA FETOPROTEIN 2020-09-20 12:08:00 [facility] ESTIMATED GFR 2020-09-20 12:08:[address] [facility] ospital CT CERVICAL SPINE WO 2020-09-20 06:50:26 [facility] PELVIS WO CONTRAST 2020-09-20 06:50:16 [facility]AST 2020-09-20 06:50:07 [facility] [place] [facility] 2020-09-20 04:05:41 Bonny Rod [facility] 30-74 MINUTES [place] URINE CULTURE 2020-09-20 04:00:00 [facility] [place] URINALYSIS SCREEN AND 2020-09-20 04:00:00 Bonny Rod [facility] MICROSCOPY, WITH REFLEX TO [place]enee CULTURE URINE DRUGS OF ABUSE 2020-09-20 04:00:00 [facility] [place] MAGNESIUM LEVEL 2020-09-20 04:00:00 Bonny Rod spital [place] TROPONIN 2020-09-20 04:00:00 Bonny Rod spital [place] XR KNEE 3 VW LEFT 2020-09-20 02:06:29 Marcel [facility] XR KNEE 3 VW RIGHT 2020-09-20 02:06:09 Marcel [facility] XR SHOULDER 2+ VW RIGHT 2020-09-20 02:05:[address] [facility] COMPLETE BLD COUNT 2020-09-20 02:05:00 Marcel [facility] W/AUTO DIFF [facility] PROTHROMBIN TIME WITH INR 2020-09-20 02:05:00 Bonny Rod [facility] PARTIAL THROMBOPLASTIN 2020-09-20 02:05:00 Bonny Rod [facility] TIME (PTT) [facility] COMPREHENSIVE METABOLIC 2020-09-20 02:05:00 [facility] [place] TROPONIN 2020-09-20 02:05:00 Bonny Rod spital [place]enee B NATRIURETIC PEPTIDE 2020-09-20 02:05:00 [facility] 2020-09-20 02:05:00 Bonny Rod yusuftal [place]enee ALCOHOL LEVEL, BLOOD 2020-09-20 02:05:00 [facility] 2020-09-20 02:05:00 Bonny Rod spital [place] Plan of Care Planned Activity Planned Date Details Comments Source Future Scheduled 2021-09-12 COLONOSCOPY SCREENING [facility] Test 12:13:11 [code = COLONOSCOPY SCREENING] Future Scheduled 2021-09-12 SHINGLES VACCINES [facility] Test 12:13:11 (#1) [code = SHINGLES VACCINES (#1)] Future Scheduled 2021-09-12 BREAST CANCER [facility] Test 12:13:11 SCREENING [code = BREAST CANCER SCREENING] Future Scheduled 2021-09-12 COVID-19 [facility]ACCINE ([facility] 12:13:11 Booster for Yanira series) [code = COVID-19 VACCINE (2 - Booster for Yanira series)] Future Scheduled 2021-09-12 [facility] 12:13:11 [code = INFLUENZA VACCINE] Future Scheduled 2021-09-12 [facility] 12:13:11 malignant neoplasm of cervix (procedure) [code = 340908379] Future Scheduled 2021-08-[address] [facility] Test 00:00:00 (12+) [code = [facility] DEPRESSION SCREENING (12+)] Future Scheduled 2021-04-[address] [facility] Test 00:00:00 (#1) [code = [facility] INFLUENZA VACCINE (#1)] Future Scheduled 2016-01-[address] [facility] Test 00:00:00 WELLNESS (YEAR 2 or [facility] FIRST YEAR if no IPPE) [code = MEDICARE ANNUAL WELLNESS (YEAR 2 or FIRST YEAR if no IPPE)] Future Scheduled 2011 SHINGLES VACCINES ([address] [facility] Test 00:00:00 of 2) [code = [facility] SHINGLES VACCINES (1 of 2)] Future Scheduled [address] [facility] Test 00:00:00 (procedure) [code = [facility] 08501370] Future Scheduled [address] [facility] Test 00:00:00 [facility]oplasm of [facility] cervix (procedure) [code = 725601473] Future Scheduled 1980 DTAP/TDAP/TD VACCINES [facility] Test 00:00:00 (1 - Tdap) [code = Medical C enter DTAP/TDAP/TD VACCINES (1 - Tdap)] Future Scheduled 1973 COVID-19 VACCINE (1) [facility] Test 00:00:00 [code = COVID-[address] VACCINE (1)] Future Scheduled [address] [facility] Test 00:00:00 malignant neoplasm of [facility] breast (procedure) [code = 392001165] Future Scheduled [address] [facility] Test 00:00:00 [facility] colon (procedure) [code = 489916750] Encounters Start End Encounter Admission Attending Care Care Encounter Source Date/Time Date/Time Type Type Clinicians Facility Department ID 2021-09-06 Outpatient Díaz, STLMLC STLMLC Common 13:49:19 Fernando 92882 [facility] 2021-09-06 Outpatient Díaz, STLMLC STLMLC [id number] Common 13:45:16 Fernando 62016 [facility] 2021-09-06 Outpatient Díaz, STLMLC STLMLC [id number] Common 12:49:41 Fernando 21575 [facility] 2021-09-06 Outpatient Díaz, STLMLC STLMLC [id number] Common 12:05:14 Fernando [id number] [facility] 2021-09-06 Outpatient Díaz, STLMLC STLMLC [id number] Common 12:03:44 Fernando 07443 [facility] 2021-09-06 Outpatient Díaz, STLMLC STLMLC [id number] Common 11:42:32 Fernando 45715 [facility] 2021-09-06 Outpatient Díaz, STLMLC STLMLC [id number] Common 11:33:04 Fernando 11207 [facility] 2021-11-30 2021-11-30 ambulatory STLMLC STLMLC [id number] Common 00:00:00 00:00:00 [facility] 2021-11-16 2021-11-16 Office HERMELINDA Thompson [id number] [facility] 13:30:00 14:32:33 Visit Luisana PORRAS 350.1.13.10 i ty of [place] 4.2.7.2.686 Kalyani SKINNER [id number] Ut dical [address] 2021-10-27 2021-11-[address] [facility] [id number] [place] 00:00:00 00:00:00 Ava PIERSON i 2021-10-16 2021-10-16 ambulatory STLMLC STLMLC [id number] Common 00:00:00 00:00:00 [facility] 2021-10-13 2021-10-13 ambulatory STLMLC STLMLC [id number] Common 00:00:00 00:00:00 [facility] 2021-09-25 2021-09-25 ambulatory STLMLC STLMLC [id number] Common 00:00:00 00:00:00 [facility] 2021-09-01 2021-09-16 Inpatient ER RAFAEL, [facility] [id number] [facility] 22:15:00 12:13:00 NEJCOLTON 2021-09-04 2021-09-04 ambulatory STLMLC STLMLC [id number] Common 00:00:00 00:00:00 [facility] 2021-09-01 2021-09-01 Telephone Cristofer, 1.2.840.1 [id number] Methodi 00:00:00 00:00:[address] [place] [facility] 3.430.2.7 Hospit a .3.132782 l .8 2021-09-01 2021-09-01 [facility] [id number] [facility] St 00:00:00 00:00:00 [facility] 2021-08-30 2021-08-31 Emergency [facility] [id number] [place] 00:00:00 00:00:[address] 2021-08-30 2021-08-30 Travel 1.2.840.1 [id number] Methodi 00:00:00 00:00:[address] 3.430.2.7 0.2.7.3.698 Ho spita .3.451975 084.8 l .8 2021-08-29 2021-08-29 Travel 1.2.840.1 1.2.260.748 [id number] Methodi 00:00:00 00:00:[address] 3.430.2.7 0.2.7.3.698 Ho spita .3.079243 084.8 l .8 2021-08-17 2021-08-25 [facility] Balderrama 1.2.840.1 [id number] Methodi 19:50:00 18:28:00 Encounter Aramis Girard 30384.1.[address] Jennifer Ghosh 3.430.2.7 Hos lis .3.516639 l .8 2021-08-25 2021-08-[address] [facility] 1.2.840.1 1.2.837.241 [id number] Methodi 00:00:00 00:00:[address] 3.430.2.7 0.2.7.3.698 Ho spita .3.188092 084.8 l .8 2021-08-24 2021-08-24 [facility], 1.2.840.1 [id number] Methodi 09:00:00 10:25:[address] 3.430.2.7 Hospit a .3.322746 l .8 2021-08-24 2021-08-24 Documentat Delcano, 1.2.840.1 [id number] Methodi 00:00:00 00:00:[place] [address] [place] 3.430.2.7 Hospit a .3.881253 l .8 2021-08-23 2021-08-23 Documentat Delcano, 1.2.840.1 [id number] Methodi 00:00:00 00:00:[place] [address] Matthew 3.430.2.7 Hospit a .3.930040 l .8 2021-08-21 2021-08-21 [facility], 1.2.840.1 [id number] Methodi 12:37:39 13:37:39 Work Scott [address]642.1.[address] 3.430.2.7 Hospit a .3.775069 l .8 2021-08-21 2021-08-21 Documentat Cristofer, 1.2.840.1 [id number] Methodi 00:00:00 00:00:00 lupillo [place] [address]32.1.[address] Matthew 3.430.2.7 Hospit a .3.114521 l .8 2021-08-21 2021-08-21 Telephone Pops, 1.2.840.1 [id number] Methodi 00:00:00 00:00:[address] 3.430.2.7 Hospit a .3.443778 l .8 2021-08-18 2021-08-18 Travel 1.2.840.1 1.2.431.819 [id number] Methodi 00:00:00 00:00:[address] 3.430.2.7 0.2.7.3.698 Ho spita .3.518305 084.8 l .8 2021-08-10 2021-08-11 Emergency Adali, 1.2.840.1 [id number] Methodi 20:25:00 01:30:[address] Rylee 3.430.2.7 Ho spita .3.858731 l .8 2021-08-10 2021-08-10 Travel 1.2.840.1 1.2.950.358 [id number] Methodi 00:00:00 00:00:[address] 3.430.2.7 0.2.7.3.698 Ho spita .3.713880 084.8 l .8 2021-07-28 2021-07-28 ambulatory STLMLC STLMLC [id number] Common 00:00:00 00:00:00 [facility] 2021-07-25 2021-07-25 Telephone Stephanie, 1.2.840.1 [id number] [id number] Methodi 00:00:00 00:00:[address] 3.430.2.7 Hospit a .3.497591 l .8 2021-07-24 2021-07-24 Telephone Jesus, 1.2.840.1 [id number] [id number] Methodi 00:00:00 00:00:[address] 3.430.2.7 Hospit a .3.290200 l .8 2021-07-12 2021-07-12 ambulatory STLMLC STLMLC [id number] Common 00:00:00 00:00:00 [facility] 2021-06-29 2021-06-29 Travel 1.2.840.1 1.2.736.911 6418 [id number] Methodi 00:00:00 00:00:[address] 3.430.2.7 0.2.7.3.698 Ho spita .3.297208 084.8 l .8 2021-06-28 2021-06-28 Emergency Nuszen, 1.2.840.1 [id number] 2099 [id number] Methodi 13:22:00 16:56:00 [address] 3.430.2.7 Hospit a .3.931591 l .8 2021-06-22 2021-06-22 Behavioral John, 1.2.840.1 [id number] Methodi 00:00:00 00:00:00 Health Kaleb 62157.1.[address] Johnny 3.430.2.7 Hospit a .3.970414 l .8 2021-06-18 2021-06-21 [facility] Diana Bangura 1.2.840.1 10 [id number] Methodi 15:30:00 14:22:00 Encounter Jennifer Ghosh 45782.1.[address] [place] 3.430.2.7 Hospita .3.805915 l .8 2021-06-18 2021-06-18 Travel 1.2.840.1 1.2.207.771 9993 [id number] Methodi 00:00:00 00:00:[address] 3.430.2.7 0.2.7.3.698 Ho spita .3.648351 084.8 l .8 2021-06-16 2021-06-16 Orders [facility], 1.2.840.0 [id number] Methodi 00:00:00 00:00:00 Only Eusebia Maya 59205.1.[address] 3.430.2.7 Hospit a .3.664020 l .8 2021-06-08 2021-06-08 Clinical 1.2.840.1 [id number] 77300 Methodi 12:04:06 13:04:[address] 3.430.2.7 Hospit a .3.474841 l .8 2021-06-05 2021-06-05 Telephone [facility], 1.2.840.1 [id number] 2100 [id number] Methodi 00:00:00 00:00:[address] Johnny 3.430.2.7 Hospit a .3.065017 l .8 2021-05-31 2021-06-02 [facility], 1.2.840.1 [id number] [place] 00:00:00 00:00:00 Encounter HERIBERTO 94882.1.1 [address] .3.956295 .8 2021-05-31 2021-05-31 Travel 1.2.840.1 1.2.948.052 5365 [id number] Methodi 00:00:00 00:00:[address] 3.430.2.7 0.2.7.3.698 Ho spita .3.323460 084.8 l .8 2021-05-24 2021-05-27 [facility] Romero Limon 1.2.840.1 [id number] Methodi 16:35:00 16:49:00 Encounter Aramis Girard 71530.1.[address] [place] 3.430.2.7 Hospita .3.394019 l .8 2021-05-24 2021-05-24 Travel 1.2.840.1 1.2.621.627 7147 [id number] Methodi 00:00:00 00:00:[address] 3.430.2.7 0.2.7.3.698 Ho spita .3.793800 084.8 l .8 2021-05-23 2021-05-23 Outpatient STLMLC STLMLC [id number] Common 00:00:00 00:00:00 [facility] 2021-05-19 2021-05-19 Outpatient STLMLC STLMLC [id number] Common 00:00:00 00:00:00 [facility] 2021-05-01 2021-05-01 Outpatient STLMLC STLMLC [id number] Common 00:00:00 00:00:00 [facility] 2021-04-26 2021-04-26 Outpatient STLMLC STLMLC [id number] Common 00:00:00 00:00:00 [facility] 2021-04-26 2021-04-26 Outpatient STLMLC STLMLC [id number] Common 00:00:00 00:00:00 [facility] 2021-04-26 2021-04-26 Outpatient STLMLC STLMLC [id number] Common 00:00:00 00:00:00 [facility] 2021-01-13 2021-01-13 Outpatient STLMLC STLMLC [id number] Common 00:00:00 00:00:00 [facility] 2020-12-13 2020-12-13 Outpatient STLMLC STLMLC [id number] Common 00:00:00 00:00:00 [facility] 2020-11-28 2020-11-28 Patient Randal, 1.2.840.1 [id number] [id number] Methodi 00:00:00 00:00:00 Outreach Bia 88839.1.[address] 3.430.2.7 Hospit a .3.486199 l .8 2020-11-25 2020-11-25 Patient Randal, 1.2.840.1 [id number] [id number] Methodi 00:00:00 00:00:00 Outreach Bia 09625.1.[address] 3.430.2.7 Hospit a .3.221533 l .8 2020-11-24 2020-11-24 Patient Randal, 1.2.840.1 [id number] Methodi 00:00:00 00:00:00 Outreach Bia 07757.1.[address] 3.430.2.7 Hospit a .3.065598 l .8 2020-11-22 2020-11-23 [facility] 1.2.840. 1 [id number] Methodi 17:29:00 16:26:[address] 3.430.2.7 Hospit a .3.850808 l .8 2020-11-22 2020-11-22 Travel 1.2.840.1 1.2.502.124 2848 [id number] Methodi 00:00:00 00:00:[address] 3.430.2.7 0.2.7.3.698 Ho spita .3.607255 084.8 l .8 2020-11-17 2020-11-17 Outpatient STLMLC STLMLC [id number] Common 00:00:00 00:00:00 [facility] 2020-11-02 2020-11-02 [facility] Cliff Levy 1.2.840.1 [id number] Methodi 16:45:00 23:59:00 Encounter Calos Garcia 93773.1.[address] 3.430.2.7 Hospit a .3.593260 l .8 2020-11-02 2020-11-02 Lab Jose 1.2.840.1 [id number] Methodi 16:00:31 16:05:31 Calos [address]1.[address] 3.430.2.7 Hospit a .3.487050 l .8 2020-11-02 2020-11-02 Travel 1.2.840.1 1.2.524.540 8479 [id number] Methodi 00:00:00 00:00:[address] 3.430.2.7 0.2.7.3.698 Ho spita .3.134731 084.8 l .8 2020-10-26 2020-10-26 [facility], 1.2.840.1 [id number] Methodi 12:51:36 23:59:00 Encounter Cliff Marion 50166.1.[address] 3.430.2.7 Hospit a .3.243020 l .8 2020-10-26 2020-10-26 [facility] 1.2.840.1 [id number] Methodi 08:10:06 12:50:00 Encounter Cliff Marion 30867.1.[address] 3.430.2.7 Hospit a .3.140851 l .8 2020-10-26 2020-10-26 Travel 1.2.840.1 1.2.337.586 3032 [id number] Methodi 00:00:00 00:00:[address] 3.430.2.7 0.2.7.3.698 Ho spita .3.183542 084.8 l .8 2020-10-23 2020-10-24 [facility] 1.2.840.1 104 [id number] Methodi 17:57:00 14:46:00 Encounter Heriberto Douglas 41242.1.[address] Aramis Girard 3.430.2.7 [facility] .3.595602 l .8 2020-10-13 2020-10-13 Travel 1.2.840.1 1.2.822.227 9789 [id number] Methodi 00:00:00 00:00:[address] 3.430.2.7 0.2.7.3.698 Ho spita .3.768561 084.8 l .8 2020-10-12 2020-10-12 Transcribe Mildred 1.2.840.1 [id number] Methodi 00:00:00 00:00:00 Orders Cliff Marion 67970.1.[address] 3.430.2.7 Hospit a .3.518475 l .8 2020-10-11 2020-10-11 Outpatient STLMLC STLMLC [id number] Common 00:00:00 00:00:00 [facility] 2020-10-09 2020-10-09 Emergency Roberto Carlos, 1.2.840.1 [id number] 2100 [id number] Methodi 16:28:00 19:29:[address] Gus 3.430.2.7 Hospit a .3.198239 l .8 2020-10-03 2020-10-03 Outpatient STLMLC STLMLC [id number] Common 00:00:00 00:00:00 [facility] 2020-09-19 2020-09-21 [facility] 1.2.840.1 [id number] Methodi 16:55:00 14:27:00 Encounter Heriberto Douglas 98903.1.[address] Jennifer Ghosh 3.430.2.7 Hos lis .3.148824 l .8 2020-09-15 2020-09-15 Transcribe Jose 1.2.840.1 [id number] 868 [id number] Methodi 00:00:00 00:00:00 Sheryl Feng [address]6640.1.[address] 3.430.2.7 [facility] a .3.021275 l .8 2020-09-14 2020-09-14 Outpatient STLMLC STLMLC [id number] Common 00:00:00 00:00:00 [facility] 2020-07-27 2020-07-27 Outpatient STLMLC STLMLC [id number] Common 00:00:00 00:00:00 [facility] 2020-06-28 2020-06-28 Outpatient STLMLC STLMLC [id number] Common 00:00:00 00:00:00 [facility] 2020-06-20 2020-06-20 Outpatient STLMLC STLMLC [id number] Common 00:00:00 00:00:00 [facility] 2020-05-20 2020-05-20 Outpatient STLMLC STLMLC [id number] Common 00:00:00 00:00:00 [facility] 2020-04-13 2020-04-13 [facility] [id number] Common 16:02:00 16:02:[address] [facility] 2020-04-13 2020-04-13 [facility] [id number] Common 09:33:00 09:33:[address] [facility] 2020-04-05 2020-04-05 [facility] [id number] Common 09:10:00 09:10:[address] [facility] 2020-04-04 2020-04-04 [facility] [id number] Common 10:58:00 10:58:[address] [facility] 2020-04-04 2020-04-04 [facility] [id number] Common 10:00:00 10:00:[address] [facility] 2020-03-16 2020-03-16 [facility] [id number] Common 11:12:00 11:12:[address] [facility] 2020-03-10 2020-03-10 [facility] [id number] Common 13:18:00 13:18:[address] [facility] 2020-03-07 2020-03-07 [facility] [id number] Common 16:07:00 16:07:[address] [facility] 2020-03-04 2020-03-04 [facility] [id number] Common 11:00:00 11:00:[address] [facility] 2020-03-04 2020-03-04 [facility] 30 [id number] Common 11:00:00 11:00:[address] [facility] 2019-12-29 2019-12-29 [facility] [id number] Common 07:03:00 07:03:[address] [facility] 2019-12-22 2019-12-22 Office Daija PRKATHERINE 1.2.840.114 [id number] 66 14:08:03 14:56:41 Visit [facility] 350.1.13.10 Surgical 4.2.7.2.686 Specialti [id number] [address] [place] 2019-07-20 2019-07-20 [facility] [id number] Common 14:02:00 14:02:[address] [facility] 2019-07-16 2019-07-16 [facility] [id number] Common 13:15:00 13:15:[address] [facility] 2019-04-15 2019-04-15 [facility] [id number] Common 14:19:00 14:19:[address] [facility] 2019-04-09 2019-04-09 [facility] [id number] Common 14:00:00 14:00:[address] [facility] 2018-09-09 2018-09-09 [facility] [id number] Common 14:45:00 14:45:[address] [facility] 2018-04-15 2018-04-15 [facility] [id number] Common 12:02:00 12:02:[address] [facility] 2018-02-19 2018-02-19 [facility] [id number] Common 15:08:00 15:08:[address] [facility] 2018-01-24 2018-01-24 [facility] [id number] Common 11:15:00 11:15:[address] [facility] Results Test Description Test Time Test Comments Results Result Comments Source SARS-CoV-2 (COVID-19) RNA [Presence] in Respiratory sp ecimen by 2021-10-28 04:55:57 GUSTAVO with probe detection Test Item Value Reference Range Interpretation Comme nts SARS-CoV-2 (COVID-19) RNA [Presence] in Respiratory specimen by Not detected GUSTAVO with probe detection (test code = 42357-1) 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 (test code = Un known 27091-2) Whether the patient has symptoms related to condition of interest U nknown (test code = 98538-3) Whether the patient was hospitalized for condition of interest Unkn own (test code = 78915-0) Whether the patient was admitted to intensive care unit (ICU) for U nknown condition of interest (test code = 65008-5) Whether patient resides in a congregate care setting (test code = U nknown 83024-9) status (test code = 52239-9) Unknown Date and time of symptom onset (test code = 42543-8) Unknown SARS-CoV-2 (COVID-19) RNA [Presence] in Respiratory specimen by GUSTAVO with probe [id number] 01:48:29 Test Item Value Reference Range Interpretation Comments SARS-CoV-2 (COVID-19) RNA Not detected [Presence] in Respiratory specimen by GUSTAVO with probe detection (test code = 55636-4) 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 employed in a Unknown healthcare setting (test code = 63087-8) Whether the patient has symptoms Unknown related to condition of interest (test code = 17378-9) Whether the patient was Unknown hospitalized for condition of interest (test code = 30927-5) Whether the patient was admitted Unknown to intensive care unit (ICU) for condition of interest (test code = 88356-5) Whether patient resides in a Unknown congregate care setting (test code = 42416-3) status (test code = Unknown 98019-2) Date and time of symptom onset Unknown (test code = 75864-5) CT, [id number] 08:50:00Unlisted Reason for Exam - Click Yes and Enter Reason Below->YesUnlisted Reason for Exam->diarrhea. abdominal pain. C dif colitis.Is this for enterography?->NoWill this procedure require oral c ontrast?->[facility] : 1960 Sex: [...] MDReport Verified Date/Time: 09/15/2021 08:50:57 BASIC METABOLIC [id number] 07:34:36 Test Item Value Reference Range Interpretation [...] S NOT APPLICABLE FOR DIALYSIS PATIEN TS. Steam Crane Operator ID - EOSpecimen moderately ictericHEPATIC FUNCTION [id number] 07:29:08 Test Item Value Reference Range Interpretation [...] Specimen slightly (test code = 347) hemolyzed Steam Crane Operator ID - EOSpecimen moderately ictericPROTHROMBIN TIME/[id number] 06:46:58 Test Item Value Reference Range Interpretation Comments PROTIME (BEAKER) 22.1 seconds 11.9-14.2 H (test code = 759) INR (BEAKER) (test 1.96 See_Comment [Automat ed message] code = 370) The system [employer] generated this result transmitted ref erence range: [...] = 2801) CBC W/PLT COUNT & AUTO [id number] 10:18:58 Test Item Value Reference Range Interpretation [...] (BEAKER) (test code = 2801) BASIC METABOLIC [id number] 08:06:00 Test Item Value Reference Range Interpretation [...] S NOT APPLICABLE FOR DIALYSIS PATIEN TS. Steam Crane Operator ID - PIAYA LSpecimen moderately ictericHEPATIC FUNCTION [id number] 08:06:00 Test Item Value Reference Range Interpretation [...] (test code = 19 U/L 6-55 347) Steam [employer] Operator ID - PIAYA LSpecimen moderately ictericPROTHROMBIN TIME/[id number] 07:51:15 Test Item Value Reference Range Interpretation Comments PROTIME (BEAKER) 20.6 seconds 11.9-14.2 H (test code = 759) INR (BEAKER) (test 1.80 See_Comment [Automat ed message] code = 370) The system [employer] generated this result transmitted ref erence range: <=5.90. The reference range was not used to int erpret this result as normal/abnormal . RECOMMENDED COUMADIN/WARFARIN INR THERAPY RANGESSTANDARD DOSE: 2.0 - 3.0 Includes: PROPHYLAXIS forvenous thrombosis, systemic embolization; TREATMENT for venous thrombosis and/or pulmonary embolus.HIGH RISK: Target INR is 2.5-3.5 for patients with mechanical heart valves.HEPATIC FUNCTION [id number] 07:41:30 Test Item Value Reference Range Interpretation [...] (test code = 21 U/L 6-55 347) Steam [employer] Operator ID - PIAYA LSpecimen moderately ictericBASIC METABOLIC [id number] 07:41:29 Test Item Value Reference Range Interpretation [...] S NOT APPLICABLE FOR DIALYSIS PATIEN TS. Steam Crane Operator ID - PIAYA LSpecimen moderately ictericPROTHROMBIN TIME/[id number] 07:34:58 Test Item Value Reference Range Interpretation Comments PROTIME (BEAKER) 19.3 seconds 11.9-14.2 H (test code = 759) INR (BEAKER) (test 1.66 See_Comment [Automat ed message] code = 370) The system [employer] generated this result transmitted ref erence range: [...] PERCENT (BEAKER) (test code = 2801) VITAMIN [id number] 07:00:04 Test Item Value Reference Range Interpretation Comments VITAMIN B12 (BEAKER) (test code = > pg/mL 213-816 H 774) Steam Cr[employer] Operator ID - ZAC WBASIC METABOLIC [id number] 06:43:51 Test Item Value Reference Range Interpretation [...] S NOT APPLICABLE FOR DIALYSIS PATIEN TS. Steam Crane Operator ID - ZAC WOperator ID - MARLON LSpecimen slightly ictericVITAMIN D, [id number] 05:27:33 Test Item Value Reference Range Interpretation Comments VITAMIN D 25-OH (BEAKER) (test code 4.4 ng/mL 6.6-49.9 L = 2764) Effective 05/22/2017: Reference Range ChangeNew: 6.6-49.9 ng/mL Previous: 13.0-47.8 ng/mLRecommended Vitamin D Target Range: 30.0-40.0 ng/mLOperator ID - MARLON LC-REACTIVE [id number] 05:23:46 Test Item Value Reference Range Interpretation Comments C-REACTIVE PROTEIN (BEAKER) (test 1.00 mg/dL 0.00-0.50 H code = 676) Steam Crane Operator ID - ZAC [id number] 05:23:45 Test Item Value Reference Range Interpretation Comments MAGNESIUM (BEAKER) (test code = 1.6 mg/dL 1.6-2.6 627) Steam Crane Operator ID - ZAC WHEPATIC FUNCTION [id number] 05:23:45 Test Item Value Reference Range Interpretation [...] (test code = 17 U/L 6-55 347) Steam Cr[employer] Operator ID - ZAC Rosales slightly ictericPROTHROMBIN TIME/[id number] 04:53:27 Test Item Value Reference Range Interpretation Comments PROTIME (BEAKER) 22.4 seconds 11.9-14.2 H (test code = 759) INR (BEAKER) (test 2.00 See_Comment [Automat ed message] code = 370) The system [employer] generated this result transmitted ref erence range: [...] (BEAKER) (test code = 2801) Basic Metabolic [id number] 08:26:03 Test Item Value Reference Range Interpretation Comments Sodium (test code = 137 meq/L 197-128 1648-2) Potassium (test code 3.5 meq/L 3.5-5.1 = 2823-3) Chloride (test code = 109 meq/L 98-107 H 2075-0) CO2 (test code = 24 meq/L 22-29 2028-9) BUN (test code = 13 mg/dL 7-21 3094-0) Creatinine (test code 0.73 mg/dL 0.57-1.25 = 2160-0) Glucose (test code = 85 mg/dL 70-105 2345-7) Calcium (test code = 7.7 mg/dL 8.4-10.2 L 11439-5) EGFR (test code = 81 mL/min/1.73 [place] [address]-3) NOT ACCURATE CREATININE CLEARANCE IN PREDICTING GLOMERULAR FILTRATION RATE . ESTIMATED GFR I S NOT APPLICABLE FOR DIALYSIS PATIENTS. REJI (test code = REJI) Steam Crane Operator GINA [place] ID - DBSpecimen slightly icteric Lab Interpretation Abnormal (test code = 76400-3) [facility] [id number] 08:26:03 Test Item Value Reference Range Interpretation [...] S NOT APPLICABLE FOR DIALYSIS PATIEN TS. Steam Crane Operator ID - MARLON LOperator ID - DBSpecimen slightly ictericHepatic function [id number] 07:24:45 Test Item Value Reference Range Interpretation Comments Protein, Total (test 4.9 See_Comment L [Autom ated code = 2885-2) message] The system which generated this result transmitted reference range : 6.0 - 8.3 gm/dL . The reference range was not used to interpr et this result as normal/abnormal . Albumin (test code = 2.2 g/dL 3.5-5.0 L 07526-6) Total Bilirubin (test 4.0 mg/dL 0.2-1.2 H code = 1974-2) Bilirubin, Direct 1.5 mg/dL 0.1-0.5 H (test code = 1967-7) Alkaline Phosphatase 111 U/L 40-150 (test code = 6768-6) AST (test code = 53 U/L 5-34 H 1920-8) ALT (test code = 17 U/L 6-55 1742-6) REJI (test code = REJI) Steam Cr[employer] Operator ID - MARLON LSpecimen slightly icteric Lab Interpretation Abnormal (test code = 92123-9) [facility] 07:24[facility]45 Test Item Value Reference Range Interpretation Comments Magnesium (test code = 1.7 mg/dL 1.6-2.6 09565-1) REJI (test code = REJI) Steam Crane Operator ID - MARLON L Lab Interpretation (test Normal code = 80859-0) [facility]2022-01-31 07:24:45 Test Item Value Reference Range Interpretation Comments MAGNESIUM (BEAKER) (test code = 1.7 mg/dL 1.6-2.6 627) Steam Crane Operator ID - MARLON LHEPATIC FUNCTION [id number] 07:24:45 Test Item Value Reference Range Interpretation [...] (test code = 17 U/L 6-55 347) Steam Crane Operator ID - MARLON KENTpecimen slightly ictericProthrombin time/[id number] 06:40:57 Test Item Value Reference Interpretation Comments [...] valves. Lab Interpretation Abnormal (test code = 64624-2) [place] campusPROTHROMBIN TIME/[id number] 06:40:57 Test Item Value Reference Range Interpretation Comments PROTIME (BEAKER) 22.5 seconds 11.9-14.2 H (test code = 759) INR (BEAKER) (test 2.01 See_Comment [Automat ed message] code = 370) The system [employer] generated this result transmitted ref erence range: [...] See_Comment H [A utomated message] The system [employer] generated this result transmitted ref erence range: 3.5 - 10 .5 K/L. The refe rence range was not u sed to interpret this result as normal/abnor mal. RBC (test code = 789-8) 2.76 See_Comment L [Au tomated message] The system [employer] generated this result transmitted ref erence range: 3.93 - 5 .22 M/L. The refe rence range was not u sed to interpret this result as normal/abnor mal. MCHC (test code = 786-4) 31.5 See_Comment L [A utomated message] The system [employer] generated this result transmitted ref erence range: [...] L [Aut omated message] 777-3) The system [employer] generated this result transmitted ref erence range: 150 - 45 0 K/CU MM. The referen ce range was not u sed to interpret this result as normal/abnor mal. MPV (test code = 9.6 fL 9.4-12.3 10307-0) nRBC (test code = 413) 0 See_Comment [Aut omated message] The system [employer] generated this result transmitted ref erence range: [...] H [Aut omated message] 670) The system [employer] generated this result transmitted ref erence range: 1.56 - 6 .13 K/L. The refe rence range was not u sed to interpret this result as normal/abnor mal. # Lymphs (test code = 1.18 See_Comment [Auto mated message] 414) The system [employer] generated this result transmitted ref erence range: 1.18 - 3 .74 K/L. The refe rence range was not u sed to interpret this result as normal/abnor mal. # Monos (test code = 0.64 See_Comment H [Autom ated message] 415) The system [employer] generated this result transmitted ref erence range: 0.24 - 0 .36 K/L. The refe rence range was not u sed to interpret this result as normal/abnor mal. # Eos (test code = 416) 0.31 See_Comment [Au tomated message] The system [employer] generated this result transmitted ref erence range: 0.04 - 0 .36 K/L. The refe rence range was not u sed to interpret this result as normal/abnor mal. # Baso (test code = 417) 0.02 See_Comment [A utomated message] The system [employer] generated this result transmitted ref erence range: 0.01 - 0 .08 K/L. The refe rence range was not u sed to interpret this result as normal/abnor mal. Immature 1 % 0-1 Granulocytes-Relative (test code = 2801) Lab Interpretation (test Abnormal code = 11947-4) [facility] W/PLT COUNT & AUTO [id number] 06:36:06 Test Item Value Reference Range Interpretation [...] (BEAKER) (test code = 2801) BASIC METABOLIC [id number] 09:04:28 Test Item Value Reference Range Interpretation [...] S NOT APPLICABLE FOR DIALYSIS PATIEN TS. Steam Crane Operator ID - DBSpecimen moderately [id number] 08:26:10 Test Item Value Reference Range Interpretation Comments MAGNESIUM (BEAKER) (test code = 1.8 mg/dL 1.6-2.6 627) Steam Crane Operator ID - DBHEPATIC FUNCTION [id number] 08:26:10 Test Item Value Reference Range Interpretation [...] (test code = 17 U/L 6-55 347) Steam Crane Operator ID - DBSpecimen moderately ictericPROTHROMBIN TIME/[id number] 07:14:13 Test Item Value Reference Range Interpretation Comments PROTIME (BEAKER) 23.1 seconds 11.9-14.2 H (test code = 759) INR (BEAKER) (test 2.08 See_Comment [Automat ed message] code = 370) The system [employer] generated this result transmitted ref erence range: [...] (BEAKER) (test code = 2801) BASIC METABOLIC [id number] 09:04:18 Test Item Value Reference Range Interpretation [...] S NOT APPLICABLE FOR DIALYSIS PATIEN TS. Steam Crane Operator ID - DBOperator ID - DBSpecimen moderately ictericHEPATIC FUNCTION [id number] 07:53:06 Test Item Value Reference Range Interpretation [...] (test code = 16 U/L 6-55 347) Steam Crane Operator ID - DBSpecimen moderately ictericManual [id number] 07:50:25 Test Item Value Reference Range Interpretation Comments % Neutros (test code = 96 % 2816) % Monos (test code = 2 % 2818) % Eos (test code = 2819) 1 % % Bands (test code = 1 % 0-10 6) # Neutros (test code = 13.34 K/ul [...] Ovalocytes (test code = 1+ few 477) [place] Cells (test code = 1+ few 474) Artifact (test code = Present 3432) Platelet Conc (test code Decreased = 3438) REJI (test code = REJI) Steam Crane Operator ID - michaela cardenasMarcial comments: Slide comments: Lab Interpretation (test Abnormal code = 92330-8) [facility](CELLAVISION MANUAL DIFF)2021-09-09 07:50:25 Test Item Value Reference [...] CONCENTRATION Decreased (CELLAVISION)(BEAKER) (test code = 3438) Steam Crane Operator ID - michaela Cutler comments: Slide comments:CBC W/PLT COUNT & AUTO [id number] 07:50:24 Test Item Value Reference Range Interpretation [...] WBC 0-0 (test code = 413) PROTHROMBIN TIME/[id number] 06:28:05 Test Item Value Reference Range Interpretation [...] = No growth in 5 days 6463-4) [facility] [id number] 14:01:01 Test Item Value Reference Range Interpretation Comments CULTURE (BEAKER) (test No growth in 5 days code = 1095) Fqqaotl8657-21-53 11:09:32 Test Item Value Reference Range Interpretation Comments Ammonia (test code = 35 See_Comment [Autom ated 56693-1) message] The system which generated this result transmit barron reference range : 18 - 72 mol/L . The reference range was not u sed to interpret th is result as normal/abnormal . REJI (test code = REJI) Steam Crane Operator ID - PIAYA L Lab Interpretation Normal (test code = 03560-9) [facility] 11:09:32 Test Item Value Reference Range Interpretation Comments AMMONIA (BEAKER) (test code = 348) 35 mol/L 18-72 [employer] Cr[employer] Operator ID - PIAYA LCBC W/PLT COUNT & AUTO [id number] 07:57:44 Test Item Value Reference Range Interpretation [...] CONCENTRATION Decreased (CELLAVISION)(BEAKER) (test code = 3438) [employer] Operator GINA Ferguson comments: Slide comments:BASIC METABOLIC [id number] 06:46:23 Test Item Value Reference Range Interpretation [...] S NOT APPLICABLE FOR DIALYSIS PATIEN TS. Steam Crane Operator ID - ZAC WSpecimen slightly bwqhygvObuhxlnxtb1116-11-01 06:42:47 Test Item Value Reference Range Interpretation Comments Phosphorus (test code = 2.4 mg/dL 2.3-4.7 2777-1) REJI (test code = REJI) Steam Crane Operator ID Ajay FRANK W Lab Interpretation (test Normal code = 57508-1) [facility] 06:42:47 Test Item Value Reference Range Interpretation Comments PHOSPHORUS (BEAKER) (test code = 2.4 mg/dL 2.3-4.7 604) Steam Cr[employer] Operator ID Ajay FRANK WHEPATIC FUNCTION [id number] 06:42:47 Test Item Value Reference Range Interpretation [...] (test code = 15 U/L 6-55 347) [employer] Operator ID Ajay Rosales slightly ictericPROTHROMBIN TIME/[id number] 05:37:24 Test Item Value Reference Range Interpretation Comments PROTIME (BEAKER) 26.6 seconds 11.9-14.2 H (test code = 759) INR (BEAKER) (test 2.48 See_Comment [Automat ed message] code = 370) The system [employer] generated this result transmitted ref erence range: [...] CONCENTRATION Decreased (CELLAVISION)(BEAKER) (test code = 3438) Steam Cr[employer] Operator ID - Cindy Gibson comments: Slide comments:CBC W/PLT COUNT & AUTO YBPDGVDALSPX1124-80-82 09:40:43 Test Item Value Reference Range Interpretation [...] 0-0 (test code = 413) BASIC METABOLIC [id number] 07:22:45 Test Item Value Reference Range Interpretation [...] S NOT APPLICABLE FOR DIALYSIS PATIEN TS. Steam Cr[employer] Operator ID - MARLON LSpecimen slightly xshkizzVKFEPNNCWB0571-63-45 07:16:27 Test Item Value Reference Range Interpretation Comments PHOSPHORUS (BEAKER) (test code = 2.2 mg/dL 2.3-4.7 L 604) Steam Cr[employer] Operator ID - ELODIARADHA LHEPATIC FUNCTION [id number] 07:16:27 Test Item Value Reference Range Interpretation [...] (test code = 17 U/L 6-55 347) [employer] Operator ID - PIAYA LSpecimen slightly ictericBLOOD [id number] 07:00:33 Test Item Value Reference Range Interpretation Comments CULTURE (BEAKER) (test No growth in 5 days code = 1095) PROTHROMBIN TIME/[id number] 06:15:38 Test Item Value Reference Range Interpretation Comments PROTIME (BEAKER) 25.1 seconds 11.9-14.2 H (test code = 759) INR (BEAKER) (test 2.31 See_Comment [Automat ed message] code = 370) The system [employer] generated this result transmitted ref erence range: <=5.90. The reference range was not used to int erpret this result as normal/abnormal . RECOMMENDED COUMADIN/WARFARIN INR THERAPY RANGESSTANDARD DOSE: 2.0 - 3.0 Includes: PROPHYLAXIS forvenous thrombosis, systemic embolization; TREATMENT for venous thrombosis and/or pulmonary embolus.HIGH RISK: Target INR is 2.5-3.5 for patients with mechanical heart valves.Ova and Parasite Zjskfhxpxmr1842-91-11 08:26:13 Test Item Value Reference Range Interpretation Comments O&P Direct Smear (test No ova or parasites No ova or code = 88626-6) seen parasites seen REJI (test code = REJI) See scanned report Lab Interpretation (test Normal code = 36757-2) [facility] 07:29:32 Test Item Value Reference Range Interpretation Comments PHOSPHORUS (BEAKER) (test code = 1.5 mg/dL 2.3-4.7 LL 604) [employer] Cr[employer] Operator ID - ZAC WBASIC METABOLIC [id number] 07:09:27 Test Item Value Reference Range Interpretation [...] S NOT APPLICABLE FOR DIALYSIS PATIEN TS. Steam Crane Operator ID - ZAC Rosales slightly ictericPROTHROMBIN TIME/[id number] 06:57:19 Test Item Value Reference Range Interpretation Comments PROTIME (BEAKER) 23.2 seconds 11.9-14.2 H (test code = 759) INR (BEAKER) (test 2.09 See_Comment [Automat ed message] code = 370) The system [employer] generated this result transmitted ref erence range: [...] CONCENTRATION Decreased (CELLAVISION)(BEAKER) (test code = 3438) Steam Crane Operator ID - nabil Julian comments: Slide comments:[id number] 15:08:54 Test Item Value Reference Range Interpretation Comments PHOSPHORUS (BEAKER) (test code = 1.2 mg/dL 2.3-4.7 LL 604) Steam Cr[employer] Operator ID - BSBASIC METABOLIC [id number] 15:04:30 Test Item Value Reference Range Interpretation [...] S NOT APPLICABLE FOR DIALYSIS PATIEN TS. Steam Crane Operator ID - BSSpecimen slightly ictericHEPATIC FUNCTION [id number] 15:02:35 Test Item Value Reference Range Interpretation [...] (test code = 17 U/L 6-55 347) Steam Crane Operator ID - BSSpecimen slightly ictericPROTHROMBIN TIME/[id number] 14:50:10 Test Item Value Reference Range Interpretation Comments PROTIME (BEAKER) 24.9 seconds 11.9-14.2 H (test code = 759) INR (BEAKER) (test 2.28 See_Comment [Automat ed message] code = 370) The system [employer] generated this result transmitted ref erence range: [...] (test code = 413) Clostridium difficile GDH [id number] 21:23:26 Test Item Value Reference Range Interpretation Comments C. Difficle Toxin Positive Negative A (test code = 1760652350) C. Difficile GDH Positive Negative A Confirms Antigen (test code = Clostri dium 1429080932) difficile-assoc ia barron infection.First line therapy - [...] of kit performance was done by the [facility] Microbiology Lab prior to clinical use. Lab Interpretation Abnormal (test code = 29684-6) [facility] DIFFICILE GDH [id number] 21:23:26 Test Item Value Reference Range Interpretation Comments CDT TOXIN (test code Positive Negative A = 7929673158) CDT GDH ANTIGEN Positive Negative A Confirms Maria Esther stridium (test code = difficile-assoc iated 4161549631) infection.First line therapy - oral Vancomycin. Co ntinue enteric isolati on until 72 hours after treatment is discontinued and symptoms have r esolved. Testing performed by [employer]. For GDH, published sensitivity of the assay is 98.7% compared to cytotoxicity testing. For Toxin AB, published sensitivity is 87.8% and specificity 99.4% compared to cytotoxicity testing.Verification of kit performance was done by the [facility] Microbiology Lab prior to clinical use.CT, CHEST, WITH [id number] 10:14:00Unlisted Reason for Exam - Click Yes and Enter Reason Below->No [facility] 1960 Sex: [...] spleen. Small volume ascites. Signed: Quentin Sims [facility] Verified Date/Time: 09/04/2021 10:14:08 CT, ABDOMEN 2021-09-04 10:14:00Unlisted Reason for Exam - Click Yes and Enter Reason Below- >No Is this for enterography?->YesWill this procedure require oral contrast?->[facility] : 1960 Sex: [...] spleen. Small volume ascites. Signed: Quentin Sims [facility] Verified Date/Time: 09/04/2021 10:14:08 (CELLAVISION MANUAL DIFF)2021-09-04 [...] CONCENTRATION Decreased (CELLAVISION)(BEAKER) (test code = 3438) Steam Crane Operator ID - michaela Cutler comments: Slide comments:CBC W/PLT COUNT & AUTO [id number] 07:25:32 Test Item Value Reference Range Interpretation [...] /100 WBC 0-0 (test code = 413) [id number] 06:26:19 Test Item Value Reference Range Interpretation Comments PHOSPHORUS (BEAKER) (test code = 1.5 mg/dL 2.3-4.7 LL 604) Steam Crane Operator GINA FRANK WComprehensive metabolic oqlwl1278-52-99 06:18:30 Test Item Value Reference Range Interpretation Comments Protein, Total (test 4.7 See_Comment L [Autom ated code = 2885-2) message] The system which generated this result transmitted reference range : 6.0 - 8.3 gm/dL . The reference range was not used to interpr et this result as normal/abnormal . Albumin (test code = 2.7 g/dL 3.5-5.0 L 28600-1) Alkaline Phosphatase 85 U/L 40-150 (test code = 6768-6) Total Bilirubin (test 2.7 mg/dL 0.2-1.2 H code = 1974-2) Sodium (test code = 134 meq/L 136-145 L 2951-2) Potassium (test code 3.6 meq/L 3.5-5.1 = 2823-3) Chloride (test code = 113 meq/L 98-107 H 2074-0) CO2 (test code = 17 meq/L 22-29 L 2027-9) BUN (test code = 27 mg/dL 7-21 H 3094-0) Creatinine (test code 1.06 mg/dL 0.57-1.25 = 2160-0) Glucose (test code = 118 mg/dL 70-105 H 2345-7) Calcium (test code = 7.3 mg/dL 8.4-10.2 L 66831-0) AST (test code = 28 U/L 5-34 1920-8) ALT (test code = 14 U/L 6-55 1742-6) EGFR (test code = 53 mL/min/1.73 [place] [address]-0) NOT ACCURATE CREATININE CLEARANCE IN PREDICTING GLOMERULAR FILTRATION RATE . ESTIMATED GFR I S NOT APPLICABLE FOR DIALYSIS PATIENTS. REJI (test code = REJI) Steam Crane Operator ID - ZAC WOODSpecnicole slightly icteric Lab Interpretation Abnormal (test code = 64870-8) [facility]COMPREHENSIVE METABOLIC [id number] 06:18:30 Test Item Value Reference Range Interpretation [...] S NOT APPLICABLE FOR DIALYSIS PATIEN TS. Steam Crane Operator ID - ZAC WSpecimen slightly bjonhssOPVDUZMIY5322-04-10 06:13:05 Test Item Value Reference Range Interpretation Comments MAGNESIUM (BEAKER) (test code = 2.3 mg/dL 1.6-2.6 627) Steam Crane Operator ID - ZAC W(CELLAVISION MANUAL DIFF)2021-09-03 14:33:56 [...] CONCENTRATION Decreased (CELLAVISION)(BEAKER) (test code = 3438) Steam Crane Operator ID - Claudine Rios comments: Slide comments:CBC W/PLT COUNT & AUTO [id number] 14:33:55 Test Item Value Reference Range Interpretation [...] (test code = 413) Hepatitis B surface wiagorem1254-90-68 13:30:11 Test Item Value Reference Range Interpretation Comments Hep B S Ab (test code <8.0 See_Comment [Auto mated = 54898-6) message] The system which generated this result transmit barron reference range : <8.0 mIU/mL. e reference range was not used to interpret this result as normal/abnormal . REJI (test code = REJI) Steam Crane Operator ID - MARLON L Lab Interpretation Normal (test code = 16437-3) [facility]HEPATITIS B SURFACE [id number] 13:30:11 Test Item Value Reference Range Interpretation Comments HEPATITIS B SURFACE ANTIBODY < mIU/mL <8.0 (BEAKER) (test code = 647) Steam Crane Operator ID - MARLON LHepatitis A antibody, [id number] 13:23:53 Test Item Value Reference Range Interpretation Comments Hep A IgG (test code = Nonreactive Nonreactive 44798-2) REJI (test code = REJI) Steam Crane Operator ID - ELODIAAYA L Lab Interpretation (test Normal code = 12545-9) [facility]HE[facility]TIBODY, [id number] 13:23:53 Test Item Value Reference Range Interpretation Comments HEPATITIS A IGG ANTIBODY (BEAKER) Nonreactive Nonreactive (test code = 2797) Steam Crane Operator ID Ajay MASON LHepatitis B core antibody, [id number] 13:23:52 Test Item Value Reference Range Interpretation Comments Hep B Core Total Ab Nonreactive Nonreactive (test code = 22404-9) REJI (test code = REJI) Steam Crane Operator ID Ajay Zapien Lab Interpretation (test Normal code = 00130-6) [facility] C kfssaoqp1447-38-94 13:23:52 Test Item Value Reference Range Interpretation Comments Hepatitis C Ab (test Nonreactive Nonreactive code = 79753-6) REJI (test code = REJI) Steam Crane Operator ID Ajay Zapien Lab Interpretation (test Normal code = 06128-5) [facility] C [id number] 13:23:52 Test Item Value Reference Range Interpretation Comments HEPATITIS C ANTIBODY (BEAKER) Nonreactive Nonreactive (test code = 367) Steam Crane Operator ID - MARLON LHEPATITIS B CORE ANTIBODY, [id number] 13:23:52 Test Item Value Reference Range Interpretation Comments HEPATITIS B CORE TOTAL ANTIBODY Nonreactive Nonreactive (BEAKER) (test code = 497) Steam Crane Operator ID Ajay MASON LHepatitis B surface hmfekyk2312-23-43 13:23:51 Test Item Value Reference Range Interpretation Comments HBsAg Screen (test code Nonreactive Nonreactive = 5195-3) REJI (test code = REJI) Specimen is considered negative for HBsAg. Lab Interpretation (test Normal code = 07282-3) [facility] SURFACE [id number] 13:23:51 Test Item Value Reference Range Interpretation [...] S NOT APPLICABLE FOR DIALYSIS PATIEN TS. Steam Crane Operator ID - MARLON LSpecimen slightly javcxqtVBTAXCBBO4245-34-71 12:58:51 Test Item Value Reference Range Interpretation Comments MAGNESIUM (BEAKER) (test code = 2.1 mg/dL 1.6-2.6 627) Steam Crane Operator ID - PIRADHA LQRIKBJXCXN5122-31-72 12:58:51 Test Item Value Reference Range Interpretation Comments PHOSPHORUS (BEAKER) (test code = 2.3 mg/dL 2.3-4.7 604) Steam Crane Operator ID - MARLON LPROTHROMBIN TIME/[id number] 12:56:09 Test Item Value Reference Range Interpretation Comments PROTIME (BEAKER) 23.4 seconds 11.9-14.2 H (test code = 759) INR (BEAKER) (test 2.10 See_Comment [Automat ed message] code = 370) The system [employer] generated this result transmitted ref erence range: <=5.90. The reference range was not used to int erpret this result as normal/abnormal . RECOMMENDED COUMADIN/WARFARIN INR THERAPY RANGESSTANDARD DOSE: 2.0 - 3.0 Includes: PROPHYLAXIS forvenous thrombosis, systemic embolization; TREATMENT for venous thrombosis and/or pulmonary embolus.HIGH RISK: Target INR is 2.5-3.5 for patients with mechanical heart valves.Urine [id number] 12:15:06 Test Item Value Reference Range Interpretation Comments Result (test code = 6463-4) No growth [facility] -ID Sayj2939-11-20 12:43:22 Test Item Value Reference Range Interpretation Comments CAMPYLOBACTER (PCR) Not detected Not detected (test code = 20216-4) PLESIOMONAS SHIGELLOIDES Not detected Not detected (PCR) (test code = 73939-9) SALMONELLA (PCR) (test Not detected Not detected code = 97532-7) YERSINIA ENTEROCOLITICA Not detected Not detected (PCR) (test code = 11841-2) VIBRIO CHOLERAE (PCR) Not detected Not detected (test code = 82235-0) ENTEROAGGREGATIVE E. Not detected Not detected COLI (EAEC) BY PCR (test code = 19912-6) ENTEROPATHOGENIC E. COLI Not detected Not detected (EPEC) BY PCR (test code = 77165-0) ENTEROTOXIGENIC E. COLI Not detected Not detected (ETEC) LT/ST BY PCR (test code = 79452-3) SHIGA-LIKE Not detected Not detected TOXIN-PRODUCING E. COLI (STEC) STX1/STX2 (test code = 10027-9) E. COLI O157 (PCR) (test code = 73491-7) SHIGELLA/ENTEROINVASIVE Not detected Not detected E. COLI (EIEC) BY PCR (test code = 60347-2) CRYPTOSPORIDIUM (PCR) Not detected Not detected (test code = 40750-0) CYCLOSPORA CAYETANENSIS Not detected Not detected (PCR) (test code = 96470-2) ENTAMOEBA HISTOLYTICA Not detected Not detected (PCR) (test code = 34198-5) GIARDIA LAMBLIA (PCR) Not detected Not detected (test code = 10058-9) ADENOVIRUS F 40/41 (PCR) Not detected Not detected (test code = 90706-3) ASTROVIRUS (PCR) (test Not detected Not detected code = 48477-7) NOROVIRUS GI/GII (PCR) Not detected Not detected (test code = 90067-1) ROTAVIRUS A (PCR) (test Not detected Not detected code = 29000-4) SAPOVIRUS (I, II, IV, V) Not detected Not detected BY PCR (test code = 81680-5) VIBRIO Not detected Not detected (PARAHAEMOLYTICUS, VULNIFICUS) (test code = 03154-2) REJI (test code = REJI) Other viruses, parasites and bacteria not targeted by this PCR panel cannot be excluded; therefore clinical correlation and follow up of serology, culture results, and other molecular studies is required. The results are not intended to be used as the sole means for clinical diagnosis or patient management decisions. This sample was tested at the [facility] Molecular Diagnostics Laboratory using the [employer] Gastrointestinal Panel. It is FDA cleared and has been verified and approved by the [facility] Molecular Diagnostics [facility] for clinical use. This laboratory is CLIA-certified and [employer] (CAP)-accredited to perform high complexity testing. [facility] BY [id number] 12:43:22 Test Item Value Reference Range Interpretation Comments CAMPYLOBACTER (PCR) (test code = Not detected Not detected 20160214) PLESIOMONAS SHIGELLOIDES (PCR) Not detected Not detected (test code = 20160218) SALMONELLA (PCR) (test code = Not detected Not detected ) YERSINIA ENTEROCOLITICA (PCR) Not detected Not detected (test code = 1755785) VIBRIO CHOLERAE (PCR) (test code Not detected Not detected = 20160313) ENTEROAGGREGATIVE E. COLI (EAEC) Not detected Not detected BY PCR (test code = 5682616) ENTEROPATHOGENIC E. COLI (EPEC) Not detected Not detected BY PCR (test code = 9061932) ENTEROTOXIGENIC E. COLI (ETEC) Not detected Not detected LT/ST BY PCR (test code = 5874675) SHIGA-LIKE TOXIN-PRODUCING E. Not detected Not detected COLI (STEC) STX1/STX2 (test code = 20160317) E. COLI O157 (PCR) (test code = 3638776) SHIGELLA/ENTEROINVASIVE E. COLI Not detected Not detected (EIEC) BY PCR (test code = 20160319) CRYPTOSPORIDIUM (PCR) (test code Not detected Not detected = 20160320) CYCLOSPORA CAYETANENSIS (PCR) Not detected Not detected (test code = 6419965) ENTAMOEBA HISTOLYTICA (PCR) Not detected Not detected (test code = 20160412) GIARDIA LAMBLIA (PCR) (test code Not detected Not detected = 20160413) ADENOVIRUS F 40/41 (PCR) (test Not detected Not detected code = 0834838) ASTROVIRUS (PCR) (test code = Not detected Not detected 20160415) NOROVIRUS GI/GII (PCR) (test Not detected Not detected code = 20160416) ROTAVIRUS A (PCR) (test code = Not detected Not detected 20160417) SAPOVIRUS (I, II, IV, V) BY PCR Not detected Not detected (test code = 20160418) VIBRIO (PARAHAEMOLYTICUS, Not detected Not detected VULNIFICUS) (test code = 1731596) Other viruses, parasites and bacteria not targeted by this PCR panel cannot be excluded; therefore clinical correlation and follow up of serology, culture results, and other molecular studies is required. The results are not intended to be used as the sole means for clinical diagnosis or patient management decisions. This sample was tested at the [facility] Molecular Diagnostics Laboratory using the [employer]Array Gastrointestinal Panel. It is FDA cleared and has been verified and approved by the [facility] Molecular Diagnostics Laboratory for clinical use. This [...] CONCENTRATION Decreased (CELLAVISION)(BEAKER) (test code = 3438) Steam Crane Operator ID - Ishanperla comments: Slide comments:CBC W/PLT COUNT & AUTO BPJNCCMSJYTK8525-57-11 08:49:57 Test Item Value Reference Range Interpretation [...] (test code = 413) Vitamin B12 and Ujonek6684-69-64 07:20:11 Test Item Value Reference Range Interpretation Comments Vitamin B12 (test 1116 pg/mL 213-816 H code = 2132-9) Folate (test code = 3.50 ng/mL See_Comment L [Automa barron 2284-8) message] The system which generated this result transmit barron reference range : >=7.00. The reference range was not used to interpret this result as normal/abnormal . REJI (test code = REJI) Steam Crane Operator ID - SHAQUILLE M Lab Interpretation Abnormal (test code = 96068-4) [facility] B12 AND [id number] 07:20:11 Test Item Value Reference Range Interpretation Comments VITAMIN B12 (BEAKER) 1116 pg/mL 213-816 H (test code = 774) FOLATE (BEAKER) 3.50 ng/mL See_Comment L [Automated message] (test code = 362) The system which generated this result transmitted ref erence range: >=7.00. The reference range was not used to interpr et this result as normal/abnormal . Steam Crane Operator ID - SHAQUILLE MCOMPREHENSIVE METABOLIC [id number] 06:57:06 Test Item Value Reference Range Interpretation [...] S NOT APPLICABLE FOR DIALYSIS PATIEN TS. Steam Crane Operator GINA CORBIN MSpecimen slightly ictericC-Reactive Ecnsgwi4156-46-69 06:55:26 Test Item Value Reference Range Interpretation Comments CRP (test code = 676) 4.64 mg/dL 0.00-0.50 H REJI (test code = REJI) Steam Crane Operator GINA CORBIN M Lab Interpretation (test Abnormal code = 55264-1) [facility]PH[facility]20[facility] 06:55:26 Test Item Value Reference Range Interpretation Comments PHOSPHORUS (BEAKER) (test code = 1.8 mg/dL 2.3-4.7 L 604) Steam Crane Operator GINA CORBIN MC-REACTIVE [id number] 06:55:26 Test Item Value Reference Range Interpretation Comments C-REACTIVE PROTEIN (BEAKER) (test 4.64 mg/dL 0.00-0.50 H code = 676) Steam Crane Operator GINA - SHAQUILLE COHFSOJSVY4539-70-76 06:55:25 Test Item Value Reference Range Interpretation Comments MAGNESIUM (BEAKER) (test code = 2.3 mg/dL 1.6-2.6 627) Steam Crane Operator GIAN CORBIN Corina, TIBC, % sat. (without ferritin)2021-09-02 06:44:00 Test Item Value Reference Range Interpretation Comments Iron (test code = 2498-4) 28.0 ug/dL 40.0-160.0 L TIBC (test code = 2500-7) 243 ug/dL 250-450 L Iron % Saturation (test 12 % 20-55 L code = 2502-3) REJI (test code = REJI) Steam Crane Operator ID - SHAQUILLE Reynolds Lab Interpretation (test Abnormal code = 69984-5) [facility]IRON, TIBC, % SAT. (WITHOUT FERRITIN)2021-09-02 06:44:00 Test Item Value Reference Range Interpretation Comments IRON (BEAKER) (test code = 547) 28.0 ug/dL 40.0-160.0 L TOTAL IRON BINDING CAPACITY 243 ug/dL 250-450 L (BEAKER) (test code = 769) IRON % SATURATION (2) (BEAKER) 12 % 20-55 L (test code = 2590) Steam Crane Operator ID - SHAQUILLE MCT, BRAIN, WITHOUT MQXBPCSI5697-34-83 03:54:00Unlisted Reason for Exam - Click Yes and Enter Reason Below->No [facility] 1960 Sex: [...] MDReport Verified Date/Time: 09/02/2021 03:54:37 U/S, ABDOMINAL, [id number] 03:38:00Abdomen limited area? Add comment if clarification is needed.->Right upper quadrantReason for exam:->evaluate biliary tree/liver [facility] : 1960 Sex: [...] of hepatic steatosis. Signed: Dulce Maria Sales MDReport Verified Date/Time: 09/02/2021 03:38:29 Urinalysis w/Microscopic + Reflex to Nytewfn4149-00-25 02:29:12 Test Item Value Reference Range Interpretation Comments Color, UA (test code Brown = 5778-6) Clarity, UA (test Hazy code = 5767-9) Specific [place], UA 1.029 1.001-1.035 (test code = 5811-5) pH, UA (test code = 6.0 5.0-8.0 5803-2) Protein, UA (test 30 mg/dL Negative A code = 15452-4) Glucose, UA (test Negative Negative code = 365) Ketones, UA (test Negative Negative code = 2514-8) Bilirubin, UA (test Negative Negative code = 51865-1) Blood, UA (test code Small Negative A = 80145-1) Nitrite, UA (test Negative Negative code = 5802-4) Leukocytes, UA (test Moderate Negative A code = 5799-2) Urobilinogen, UA 0.2 mg/dL 0.2-1.0 (test code = 62338-5) RBC, UA (test code = 18 See_Comment [Autom ated 64642-5) message] The system which generated this result [...] . Bacteria, UA (test Rare code = 95544-6) Mucus (test code = Moderate 8247-9) Squam Epithel, UA 2 See_Comment [Automate d (test code = 85002-9) messag e] The system which generated this result transmit barron reference range : /HPF. The reference range was not used to interpret this result as normal/abnormal . Hyaline Casts, UA 3 See_Comment [Automate d (test code = 62280-7) messag e] The system which generated this result transmit barron reference range : /LPF. The reference range was not used to interpret this result as normal/abnormal . Crystals, Urine (test None Seen code = 77728-2) Amorphous Crystals Rare (test code = 21816-3) Specimen Source (test code = 2795) REJI (test code = REJI) Steam Crane Operator ID - [auto]Steam Crane Operator ID - tech Lab Interpretation Abnormal (test code = 10708-1) [facility] [id number] 02:29:12 Test Item Value Reference Range Interpretation [...] = 1584) SOURCE(BEAKER) (test code = 2795) Steam Crane Operator ID - [auto]Steam Crane Operator ID - techRAD, CHEST, 1 VIEW, NON [id number] 01:45:00Reason for exam:->leukocytosis, unable to provide historyShould this be performed at the bedside?->Yes [facility] 1960 Sex: FFINAL [...] 09/02/2021 01:45:23 CBC W/PLT COUNT & AUTO [id number] 00:20:23 Test Item Value Reference Range Interpretation [...] CONCENTRATION Decreased (CELLAVISION)(BEAKER) (test code = 3438) Steam Crane Operator ID - Curtis Grullon comments: Slide comments:PT/[id number] 23:44:49 Test Item Value Reference Interpretation Comments Range Protime (test code = 22.8 See_Comment H [Autom ated 5902-2) message] The system which generated this result transmitted reference range : 11.9 - 14.2 seconds. The reference range was not used to interpret this result as normal/abnormal . INR (test code = 2.04 See_Comment [Automated 6931-6) message] The system which generated this result transmitted reference range : <=5.90. The reference range was not used to interpret this result as normal/abnormal . PTT (test code = 35.2 See_Comment [Automated 28074-9) message] The system which generated this result [...] valves. Lab Interpretation Abnormal (test code = 62721-8) [facility][id number] 23:44:49 Test Item Value Reference Range Interpretation [...] for patients with mechanical heart valves.BASIC METABOLIC [id number] 23:31:12 Test Item Value Reference Range Interpretation [...] S NOT APPLICABLE FOR DIALYSIS PATIEN TS. Steam Crane Operator ID - DBSpecimen slightly [id number] 23:19:46 Test Item Value Reference Range Interpretation Comments MAGNESIUM (BEAKER) (test code = 1.8 mg/dL 1.6-2.6 627) Steam Crane Operator ID - [id number] 23:19:46 Test Item Value Reference Range Interpretation Comments PHOSPHORUS (BEAKER) (test code = 1.9 mg/dL 2.3-4.7 L 604) Steam Crane Operator ID - DBHEPATIC FUNCTION [id number] 23:19:46 Test Item Value Reference Range Interpretation [...] (test code = 14 U/L 6-55 347) Steam Crane Operator ID - DBSpecimen slightly ictericLactic acid, [id number] 23:13:03 Test Item Value Reference Range Interpretation Comments Lactate, Venous (test 2.88 mmol/L 0.50-2.20 H code = 2872) REJI (test code = REJI) Steam Crane Operator ID - DBSpecimen slightly icteric Lab Interpretation (test Abnormal code = 89510-7) [facility]LACTIC ACID, [id number] 23:13:03 Test Item Value Reference Range Interpretation Comments LACTATE BLOOD VENOUS (2) (AKER) 2.88 mmol/L 0.50-2.20 H (test code = 2872) Steam Crane Operator ID - DBSpecimen slightly ictericPOC-Glucose [id number] 22:47:30 Test Item Value Reference Range Interpretation Comments POC-Glucose Meter (test 106 mg/dL 70-110 : TE STED AT [facility] code = 1538) [address] [facility], [address] 30: Steam Crane Operator/Techni sowmya ID = [id number] for ULLATTIL, TAYA K Lab Interpretation (test Normal code = 67339-5) [place] [facility]POCT-GLUCOSE [id number] 22:47:30 Test Item Value Reference Range Interpretation Comments POC-GLUCOSE METER 106 mg/dL 70-110 : TESTED A T [facility] [address] ([facility]) (test code = [facility], 1538) [address]: Steam Crane Operator/Techni sowmya ID = [id number] for UL LATTIL, WALE C1Q class 1 & 2 [id number] 17:38:21 Test Item Value Reference Range Interpretation Comments Interpretation (test code ADDITIONAL ANTIBODY = 2200625) INFORMATION:DQ7 = DQB1*03:01; DQA1*05:03DQ7 = DQB1*03:19; DQA1*05:05DQ7 = DQB1*03:01; DQA1*06:01DQ9 = DQB1*03:03; DQA1*02:01DQ9 = DQB1*03:03; DQA1*03:02DQ8 = DQB1*03:02; DQA1*03:01DQ8 = DQB1*03:02; DQA1*03:02 Case number (test code = [id number]) C1Q class 1 & 2 antibody See link below for (test code = 9175246) PDF Lab Report [facility], diffusion, lung volumes, [facility]/[id number] 19:27:26 Test Item Value Reference Range Interpretation [...] Predicted (test code = 67.9 % 5368) [facility] [id number] 13:53:30 Test Item Value Reference Range Interpretation Comments POC glucose (test code = 124 mg/dL 65-99 H Ope rator Name: [id number]) Clint Bustamante RDevice ID: [id number] able : [facility] Notified tripe finisher Interpretation (test Abnormal code = 34602-0) [facility] antigen [id number] 11:33:46 Test Item Value Reference Range Interpretation Comments SAB interpretation (test Additional Antibody code = 5950) Information:DQ2=DQB1 *02:01/DQA1*04:01, DQB1*02:01/DQA1*05:0 0UD3=SDP3*04:02/DQA1 *04:56JR4=TAL4*03:01 /DPA1*01:03, DPB1*03:01/DPA1*02:0 1ME1=CEA5*04:02/DPA1 *01:40NW86=URP9*28:0 1/DPA1*01:03 SAB serum ID (test code = [id number] 5866) SAB serum collection D&T 08/23/2021 05:49 AM (test code = 5867) SAB class I antibody A11,A74,A32,A3,A31,A assignment (test code = 30,A36,A1,A29,A66,A8 5870) 0,A26,A25,A43,A34,A3 3,B82 SAB cPRA class I (test code = 5868) SAB class II antibody DR18,DR17,DR13,DR14, assignment (test code = DR52,DR11,DR8,DQ7,DR 5871) 12,DQ9,DR9,DR7,DQ8,D Q2,DR4,DQ4,DP2,DP14, DP4,DP9,DP10,DP18,DP 20,DP17,DP3,DP28 SAB cPRA class II (test code = 5869) Case number (test code = [id number]) Single antigen beads See link below for (test code = 4604) PDF [facility] Report [facility], [id number] 20:20:55 Test Item Value Reference Range Interpretation Comments Collection start date, urine (test 08/23/21 code = 96170-5) Collection start time, urine (test 8:40 code = 53066-5) Collection stop date, urine (test 08/24/21 code = 17319-4) Collection stop time, urine (test 8:40 code = 63300-1) Hours of collection (test code = 04917-5) Total volume, urine (test code = 800 mL 88121-7) Urine protein concentration (test 7 mg/dL code = 14115-0) Urine protein excretion (test code = mg/vol 2448) [facility]ville[facility]inine [facility], urine, [id number] 20:20:52 Test Item Value Reference Range Interpretation Comments Collection start date, urine (test 08/23/21 code = 03275-8) Collection start time, urine (test 8:40 code = 01599-6) Collection stop date, urine (test 08/24/21 code = 06519-3) Collection stop time, urine (test 8:40 code = 60777-5) Hours of collection (test code = 72244-4) Total volume, urine (test code = 800 mL 81026-6) Urine creatinine concentration 114 mg/dL (test code = 71510-9) Urine creatinine excretion (test mg/vol code = 83057-4) [place] [address] [id number] 15:33:38 Test Item Value Reference Range Interpretation Comments Ventricular rate (test code = 253) Atrial rate (test code = 255) [place] interval (test code = 266) QRSD interval [...] out Inferior infarct , age undetermined-Abnormal ECG- [facility] [id number] 14:27:40 Test Item Value Reference Range Interpretation Comments HLA transplant evaluation See link below for (test code = 46228-0) PDF Lab Report Case number (test code = [id number]) [facility] ED Preliminary Interpretation - Not an [id number] 02:54:33 Test Item Value Reference Range Interpretation Comments REJI (test code = REJI) Orlando Balderrama MD 08/17/2021 10:33 [facility] Preliminary Interpretation - Not an OrderPerformed by: Orlando Balderrama MDAuthorized by: Orlando Balderrama MD ECG reviewed by ED Physician in the absence of a farmworker: yes Interpretation: Interpretation: abnormal Rate: ECG rate: 80 ECG rate assessment: normal Rhythm: Rhythm: sinus rhythm QRS: QRS axis: Normal QRS intervals: NormalST segments: ST segments: NormalOther findings: Other findings: prolonged qTc interval Lab Interpretation Abnormal (test code = 41635-9) [facility]
--- NOTE | 2021-12-25 20:16 | RAD REPORT ---
EXAM DESCRIPTION: CT - Head Brain Wo Cont - 12/25/2021 8:09 pm CLINICAL HISTORY: Headache, uncomplicated COMPARISON: Head Brain Wo Cont dated 12/04/2021; Head Brain Wo Cont dated 12/15/2020; Pelvis Complete d ated 10/12/2021 TECHNIQUE: All CT scans are performed using dose optimization technique as appropriate and may inclu de automated exposure control or mA/KV adjustment according to patient size. FINDINGS: No intracranial hemorrhage, hydrocephalus or extra-axial fluid collection.No areas of brai n edema or evidence of midline shift. Small mucous retention cyst or polyp is seen in the right maxillary antrum. The paranasal sinuses and mastoids are otherwise clear. The calvarium is intact. IMPRESSION: No acute intracranial abnormality.
[2021-12-25 21:16] LABS: Absolute Lymphocytes (CBC) 1.3 K/uL (0.7-4.9); Hematocrit 32.3 % (36.0-45.0); Lymphocytes % 21.6 % (15.3-44.8); MPV 8.6 fL (7.6-11.3); RBC Red Blood Cell Count 3.67 M/uL (3.86-4.86)
[2021-12-25] MEDS ORDERED: ONDANSETRON 4 MG/2 ML VIAL ONE (21:34)
[2021-12-25] MEDS ORDERED: NA CHLORIDE 0.9% 1,000 ML ONE (21:35)
[2021-12-25 22:05] LABS: ALT/SGPT 29 U/L (12-78); AST/SGOT 27 U/L (15-37); Alkaline Phosphatase 64 U/L (45-117); BUN Blood Urea Nitrogen 15 mg/dL (7-18); Bicarbonate 31 mmol/L (21-32); Bilirubin Direct 0.9 mg/dL (0-0.2); Bilirubin Total 2.6 mg/dL (0.2-1.0); Glomerular Filtration Rate 65 ml/min (=/>90); Glucose Level 86 mg/dL (74-106); Lipase 141 U/L (73-393); Magnesium 1.6 mg/dL (1.8-2.4); Potassium 3.4 mmol/L (3.5-5.1); Protein, Total 6.5 g/dL (6.4-8.2); Sodium Level 141 mmol/L (136-145); Troponin High Sensitivity 3.8 pg/mL (<58.9)
[2021-12-25] MEDS ORDERED: MORPHINE 2 MG/ML SYR ONE (22:08)
[2021-12-25 22:18] LABS: Protime INR 1.14
[2021-12-26] MEDS ORDERED: POTASSIUM 25 MEQ EFFERV TAB ONE (00:10)
[2021-12-26] MEDS ORDERED: HYDROMORPHONE HCL 1 MG/ML INJ ONE (00:10)
[2021-12-26] MEDS ORDERED: MAGNESIUM SULFATE 1 gm IVPB 1 GM/100 ML BAG IV ONE (00:10)
--- NOTE | 2021-12-26 01:30 | EDPHYS ---
Physician Documentation [facility] Name: Bella Barron Age: 61 yrs Sex: Female : 1960 Arrival Date: 12/25/2021 Time: 17:35 Bed 6 Private MD: ED Physician Ashok Romano HPI: 12/25 19:46 This 61 yrs old Female presents to ER via Ambulatory with complaints of Migraine, L mh7 Side Weakness. 19:46 The patient complains of pain to the forehead. The patient describes the headache as mh7 intermittent, throbbing, waxing and waning. Onset: The symptoms/episode began/occurred 1 week(s) ago. Associated signs and symptoms: Pertinent positives: nausea, paresthesias, Photophobia confusion, Pertinent negatives: dizziness, fever, neck stiffness, rash, sinus congestion, sinus tenderness, vision changes, vision loss, vomiting, weakness, vertigo. Severity of symptoms: At its worst the pain was moderate, 4 day(s) ago, in the emergency department the pain has improved, moderately. Headache History: The patient has had previous headaches and this one is similar to previous episodes. The symptoms are alleviated by nothing. the symptoms are aggravated by lights, noise, stress. States that she has had flare up of her migraine headaches for the past week. She also states that she has had some intermittent numbness/tingling sensation to her hands and feet and confusion.. Historical: - Allergies: 17:44 Iodine; ll1 17:44 Phenergan; ll1 17:44 Rocephin; ll1 - Home Meds: 17:44 Allopurinol Oral [Active]; gabapentin 300 mg oral cap 1 cap 3 times per day [Active]; ll1 Ubrelvy 100 mg oral tab for migraine [Active]; Zofran 4 mg Oral tab [Active]; Ultram 50 mg Oral tab for pain [Active]; Aldactone 50 mg Oral tab once daily [Active]; Xifaxan 550 mg oral tab [Active]; ramelteon 8 mg oral tab for sleep-onset insomnia [Active]; - PMHx: 17:44 Cirrhosis; Colitis; Crohn's; Depression; Liver disease; needs kidney and liver ll1 transplant; - PSHx: 17:44 Cholecystectomy; bowel resection; TIPS procedure; Total abdominal hysterectomy; ll1 - Immunization history:: Adult Immunizations up to date, Client reports receiving the 2nd dose of the Covid vaccine. - Social history:: Smoking status: unknown. ROS: 19:46 Constitutional: Negative for fever, chills, and weight loss, Eyes: Negative for injury, mh7 pain, redness, and discharge, ENT: Negative for injury, pain, and discharge, Neck: Negative for injury, pain, and swelling, Cardiovascular: Negative for chest pain, palpitations, and edema, Respiratory: Negative for shortness of breath, cough, wheezing, and pleuritic chest pain, Abdomen/GI: Negative for abdominal pain, nausea, vomiting, diarrhea, and constipation, Back: Negative for injury and pain, : Negative for injury, bleeding, discharge, and swelling, MS/Extremity: Negative for injury and deformity, Skin: Negative for injury, rash, and discoloration, Psych: Negative for depression, anxiety, suicide ideation, homicidal ideation, and hallucinations, Allergy/Immunology: Negative for hives, rash, and allergies, Endocrine: Negative for neck swelling, polydipsia, polyuria, polyphagia, and marked weight changes, Hematologic/Lymphatic: Negative for swollen nodes, abnormal bleeding, and unusual bruising. Exam: 19:46 Constitutional: This is a well developed, well nourished patient who is awake, alert, mh7 and in no acute distress. Head/Face: Normocephalic, atraumatic. Neck: Trachea midline, no thyromegaly or masses palpated, and no cervical lymphadenopathy. Supple, full range of motion without nuchal rigidity, or vertebral point tenderness. No Meningismus. Chest/axilla: Normal chest wall appearance and motion. Nontender with no deformity. No lesions are appreciated. Cardiovascular: Regular rate and rhythm with a normal S1 and S2. No gallops, murmurs, or rubs. Normal PMI, no JVD. No pulse deficits. Respiratory: Lungs have equal breath sounds bilaterally, clear to auscultation and percussion. No rales, rhonchi or wheezes noted. No increased work of breathing, no retractions or nasal flaring. Back: No spinal tenderness. No costovertebral tenderness. Full range of motion. Skin: Warm, dry with normal turgor. Normal color with no rashes, no lesions, and no evidence of cellulitis. MS/ Extremity: Pulses equal, no cyanosis. Neurovascular intact. Full, normal range of motion. Psych: Awake, alert, with orientation to person, place and time. Behavior, mood, and affect are within normal limits. 19:46 Neuro: Orientation: is normal, Mentation: is normal, Memory: is normal, Cranial nerves: grossly normal, Cerebellar function: is grossly normal, Motor: is normal, Sensation: is normal, Gait: not tested. seizure activity, is not displayed by the patient, Abnormal movements: there are no abnormal movements. 19:46 Eyes: Pupils equal round and reactive to light, extra-ocular motions intact. Lids and mh7 lashes normal. Conjunctiva and sclera are non-icteric and not injected. Cornea within normal limits. Periorbital areas with no swelling, redness, or edema. Vital Signs: 17:39 BP 113 / 68 LA; Pulse 108; Resp 17; Temp 98.2(O); Pulse Ox 98% ; Pain 9/10; ll1 17:43 BP 113 / 62 LA; Pulse 98; Resp 16; Temp 98.2(O); Pulse Ox 99% on R/A; Pain 9/10; ll1 20:00 BP 115 / 57; Pulse 80; Resp 18 S; Pulse Ox 96% on R/A; as6 21:00 BP 109 / 86; Pulse 88; Resp 17 S; Pulse Ox 97% on R/A; as6 22:41 BP 117 / 62; Pulse 85; Resp 18 S; Pulse Ox 97% on R/A; as6 23:30 BP 102 / 57; Pulse 80; Resp 21 S; Pulse Ox 98% on R/A; as6 05/17 00:47 BP 111 / 66; Pulse 89; Resp 18 S; Pulse Ox 96% on R/A; as6 01:33 BP 110 / 59; Pulse 84; Resp 18 S; Pulse Ox 97% on R/A; as6 Yojana Coma Score: 01:26 Eye Response: spontaneous(4). Verbal Response: oriented(5). Motor Response: obeys mh7 commands(6). Total: 15. MDM: 01:26 Differential diagnosis: cluster headache, hypoglycemia, intracerebral hemorrhage, mh7 migraine, sinusitis, tension headache. Data reviewed: vital signs, nurses notes, old medical records, lab test result(s), cardiac enzymes, CBC, electrolytes, EKG, radiologic studies, CT scan. Data interpreted: Pulse oximetry: on room air is 96 %. Interpretation: normal. Counseling: I had a detailed discussion with the patient and/or guardian regarding: the historical points, exam findings, and any diagnostic results supporting the discharge/admit diagnosis, lab results, radiology results, the need for outpatient follow up, to return to the emergency department if symptoms worsen or persist or if there are any questions or concerns that arise at home. Response to treatment: the patient's symptoms have resolved after treatment, the patient's blood pressure is in an acceptable range, mental status has returned to baseline, the patient no longer shows bradycardia, the patient is not short of breath, the patient is not tachycardic, the patient's pain is gone, the patient's temperature has normalized, the patient is now symptom free, patient is well hydrated. ED course: Well appearing, NAD, VSS, no focal neurological deficits. Sitting up eating a candy bar. No headache, nausea, vomiting, or other complaints.. 01:30 Patient medically screened. [facility] 12/25 19:41 Order name: Acetaminophen; Complete Time: 22:35 [facility] 12/25 19:41 Order name: Basic Metabolic Panel; Complete Time: 22:35 [facility] 12/25 19:41 Order name: CBC with Diff; Complete Time: 21:28 [facility] 12/25 19:41 Order name: ETOH Level; Complete Time: 22:35 [facility] 12/25 19:41 Order name: Hepatic Function; Complete Time: 22:35 [facility] 12/25 19:41 Order name: PT-INR; Complete Time: 22:35 [facility] 12/25 19:41 Order name: Ptt, Activated; Complete Time: 22:35 [facility] 12/25 19:41 Order name: Salicylate; Complete Time: 21:55 [facility] 12/25 19:41 Order name: Troponin High Sensitivity; Complete Time: 22:35 [facility] 12/25 19:41 Order name: AMMONIA; Complete Time: 22:35 [facility] 12/25 19:41 Order name: Magnesium; Complete Time: 22:35 [facility] 12/25 19:41 Order name: Phosphorus; Complete Time: 22:35 [facility] 12/25 19:43 Order name: COVID-19 SARS RT PCR (Document "Date of Onset" if Symptomatic); Complete [facility] Time: 22:35 12/25 19:41 Order name: EKG; Complete Time: 19:41 12/25 19:41 Order name: EKG - Nurse/Tech; Complete Time: 22:06 12/25 19:41 Order name: IV Saline Lock; Complete Time: 21:35 [facility] 12/25 19:41 Order name: Labs collected and sent; Complete Time: 21:35 [facility] 12/25 19:41 Order name: Suicide Screening ([place]); Complete Time: 22:01 [facility] 12/25 19:41 Order name: CT Head Brain wo Cont; Complete Time: 20:31 [facility] 12/25 20:55 Order name: Lipase; Complete Time: 22:35 EDMS Administered Medications: 12/25 21:35 Drug: NS 0.9% 1000 ml Route: IV; Rate: 125 ml/hr; Site: left antecubital; 12/26 01:41 Follow up: Response: No adverse reaction; IV Status: Order to discontinue infusion; IV as6 Intake: 500ml 12/25 21:35 Drug: Zofran (Ondansetron) 4 mg Route: IVP; Site: left antecubital; as12/26 01:41 Follow up: Response: No adverse reaction 12/25 22:05 Drug: morphine 2 mg Route: IVP; Site: left antecubital; 12/26 01:41 Follow up: Response: No adverse reaction as6 00:11 Drug: Potassium Effervescent Tablet 25 mEq Route: PO; as6 01:42 Follow up: Response: No adverse reaction as6 00:12 Drug: Dilaudid (HYDROmorphone) 1 mg Route: IVP; Site: left antecubital; as6 01:41 Follow up: Response: No adverse reaction as6 00:12 Drug: Magnesium Sulfate 1 grams Route: IVPB; Infused Over: 1 hrs; Site: left as6 antecubital; 01:41 Follow up: Response: No adverse reaction; IV Status: Completed infusion; IV Intake: as6 100ml Disposition Summary: 12/26/21 01:30 Discharge Ordered Location: Home [facility] Problem: an acute exacerbation [facility] Symptoms: have improved mh Condition: Stable [facility] Diagnosis - Headache mh7 - Hypokalemia mh7 - Hypomagnesemia 7 - Paresthesia of skin 7 Followup: mh7 - With: Private Physician - When: 1 - 2 days - Reason: Worsening of condition, Recheck today's complaints, Continuance of care, Re-evaluation by your physician Followup: 7 - With: Cliff Levy MD - When: 1 - 2 days - Reason: Worsening of condition, Recheck today's complaints Discharge Instructions: - Discharge Summary Sheet 7 - Hypomagnesemia 7 - Migraine Headache, Ypib-vo-Lhik 7 - Paresthesia, Azev-ny-Jjjp 7 - Hypokalemia [facility] Forms: - Medication Reconciliation Form 7 - Thank You Letter 7 - Antibiotic Education 7 - Prescription Opioid Use [facility] Signatures: Dispatcher [employer] EDMS Makenna Burgos RN RN ll1 Ashok Romano MD MD 7 Toni Loza RN RN as6 Bonnie Mason RN RN kd3 Flaquita Soares PA PA sb3 Corrections: (The following items were deleted from the chart) 12/25 17:52 17:44 PMHx: ocd; ll1 ll1 20:55 19:45 LIPASE+C.LAB.BRZ ordered. EDMS EDMS
--- NOTE | 2021-12-26 01:30 | ER ---
Nurse's Notes [facility] Name: Bella Barron Age: 61 yrs Sex: Female : 1960 Arrival Date: 12/25/2021 Time: 17:35 Bed 6 Private MD: Diagnosis: Headache;Hypokalemia;Hypomagnesemia;Paresthesia of skin Presentation: 12/25 17:39 Chief complaint: Patient states: s numbness and tingling in hands and feet off and on x ll1 1 week. also reports migraine off and on "for a long time" Medication is not working for her migraine. Bilateral marketing representative equal speech clear. Coronavirus screen: Vaccine status: Patient reports receiving the 2nd dose of the covid vaccine. Ebola Screen: Patient negative for fever greater than or equal to 101.5 degrees Fahrenheit, and additional compatible Ebola Virus Disease symptoms. Risk Assessment: Do you want to hurt yourself or someone else? Patient reports no desire to harm self or others. 17:39 Method Of Arrival: Ambulatory ll1 17:39 Acuity: OLEG 3 ll1 17:39 Acuity: OLEG 3 ll1 19:17 Initial Sepsis Screen: Does the patient meet any 2 criteria? No. Patient's initial kd3 sepsis screen is negative. Does the patient have a suspected source of infection? No. Patient's initial sepsis screen is negative. Onset of symptoms was December 25, 2021. Historical: - Allergies: 17:44 Iodine; ll1 17:44 Phenergan; ll1 17:44 Rocephin; ll1 - Home Meds: 17:44 Allopurinol Oral [Active]; gabapentin 300 mg oral cap 1 cap 3 times per day [Active]; ll1 Ubrelvy 100 mg oral tab for migraine [Active]; Zofran 4 mg Oral tab [Active]; Ultram 50 mg Oral tab for pain [Active]; Aldactone 50 mg Oral tab once daily [Active]; Xifaxan 550 mg oral tab [Active]; ramelteon 8 mg oral tab for sleep-onset insomnia [Active]; - PMHx: 17:44 Cirrhosis; Colitis; Crohn's; Depression; Liver disease; needs kidney and liver ll1 transplant; - PSHx: 17:44 Cholecystectomy; bowel resection; TIPS procedure; Total abdominal hysterectomy; ll1 - Immunization history:: Adult Immunizations up to date, Client reports receiving the 2nd dose of the Covid vaccine. - Social history:: Smoking status: unknown. Screenin:17 Abuse screen: Denies threats or abuse. Denies injuries from another. Nutritional kd3 screening: No deficits noted. Tuberculosis screening: No symptoms or risk factors identified. Fall Risk None identified. Assessment: 19:16 General: Appears in no apparent distress. Behavior is calm, cooperative. Pain: kd3 Complains of pain in headache. Neuro: Level of Consciousness is awake, alert, obeys commands, Oriented to person, place, time, situation. Cardiovascular: Patient's skin is warm and dry. Respiratory: Airway is patent Trachea midline Respiratory effort is even, unlabored, Respiratory pattern is regular. Vital Signs: 17:39 BP 113 / 68 LA; Pulse 108; Resp 17; Temp 98.2(O); Pulse Ox 98% ; Pain 9/10; ll1 17:43 BP 113 / 62 LA; Pulse 98; Resp 16; Temp 98.2(O); Pulse Ox 99% on R/A; Pain 9/10; ll1 20:00 BP 115 / 57; Pulse 80; Resp 18 S; Pulse Ox 96% on R/A; as6 21:00 BP 109 / 86; Pulse 88; Resp 17 S; Pulse Ox 97% on R/A; as6 22:41 BP 117 / 62; Pulse 85; Resp 18 S; Pulse Ox 97% on R/A; as6 23:30 BP 102 / 57; Pulse 80; Resp 21 S; Pulse Ox 98% on R/A; as6 05/17 00:47 BP 111 / 66; Pulse 89; Resp 18 S; Pulse Ox 96% on R/A; as6 01:33 BP 110 / 59; Pulse 84; Resp 18 S; Pulse Ox 97% on R/A; as6 Yojana Coma Score: 01:26 Eye Response: spontaneous(4). Verbal Response: oriented(5). Motor Response: obeys 7 commands(6). Total: 15. ED Course: 12/25 17:35 Patient arrived in ED. ds1 17:43 Triage completed. ll1 19:09 María Christianson RN is Primary Nurse. ph 19:11 Ashok Romano MD is Attending Physician. 7 19:16 Bonnie Mason, RN is Primary Nurse. kd3 19:17 Arm band placed on right wrist. kd3 19:18 Patient has correct armband on for positive identification. Placed in gown. Call light kd3 in reach. 20:10 CT Head Brain wo Cont In Process Unspecified. EDMS 21:25 Initial lab(s) drawn, by me, sent to lab. Inserted saline lock: 20 gauge in left bb antecubital area, using aseptic technique. Blood collected. 12/26 01:29 Cliff Levy MD is Referral Physician. 7 01:42 No provider procedures requiring assistance completed. IV discontinued, intact, as6 bleeding controlled, No redness/swelling at site. Pressure dressing applied. Administered Medications: 12/25 21:35 Drug: NS 0.9% 1000 ml Route: IV; Rate: 125 ml/hr; Site: left antecubital; as6 12/26 01:41 Follow up: Response: No adverse reaction; IV Status: Order to discontinue infusion; IV as6 Intake: 500ml 12/25 21:35 Drug: Zofran (Ondansetron) 4 mg Route: IVP; Site: left antecubital; as6 12/26 01:41 Follow up: Response: No adverse reaction as6 12/25 22:05 Drug: morphine 2 mg Route: IVP; Site: left antecubital; as6 12/26 01:41 Follow up: Response: No adverse reaction as6 00:11 Drug: Potassium Effervescent Tablet 25 mEq Route: PO; as6 01:42 Follow up: Response: No adverse reaction as6 00:12 Drug: Dilaudid (HYDROmorphone) 1 mg Route: IVP; Site: left antecubital; as6 01:41 Follow up: Response: No adverse reaction as6 00:12 Drug: Magnesium Sulfate 1 grams Route: IVPB; Infused Over: 1 hrs; Site: left as6 antecubital; 01:41 Follow up: Response: No adverse reaction; IV Status: Completed infusion; IV Intake: as6 100ml Medication: 12/25 19:18 VIS not applicable for this client. kd3 Intake: 12/26 01:41 IV: 500ml; Total: 500ml. as6 01:41 IV: 100ml; Total: 600ml. as6 Outcome: 01:30 Discharge ordered by . 7 01:42 Discharged to home via wheelchair, with significant other. as6 01:42 Condition: stable 01:42 Discharge instructions given to patient, Instructed on discharge instructions, follow up and referral plans. Demonstrated understanding of instructions, follow-up care. 01:42 Patient left the ED. as6 Signatures: Dispatcher [employer] EDWI Kylee Johnson ds1 Erica Batista RN RN María Rosen RN RN ph Lewis, Lynsay, RN RN ll1 Ashok Romano MD MD mh7 Slawson, Ashby, RN RN as6 Bonnie Mason RN RN kd3 Corrections: (The following items were deleted from the chart) 12/25 17:52 17:44 PMHx: ocd; ll1 ll1
[2021-12-26 01:48] VITALS: TEMP 98.2
[2021-12-26 02:03] VITALS: BP 110/59; O2SAT 97
--- NOTE | 2021-12-26 09:33 | EKG ---
Test Date: 2021-12-25 Test Time: 22:08:05 Mouse Breeder: MARY MEASUREMENT RESULTS: Intervals: Rate: 88 ME: 156 QRSD: 82 QT: 428 QTc: 517 Erhard: P: 40 ME: 156 QRS: 24 T: 36 INTERPRETIVE STATEMENTS: Normal sinus rhythm Prolonged QT Abnormal ECG Compared to ECG 10/07/2021 21:08:24 Prolonged QT interval now present Sinus tachycardia no longer present Electronically Signed On 12-26-21 09:32:01 CDT by Nico Caldwell
== END 2021-12-26 01:42 | disposition home or self-care (01) ==
LOC: ER 17:33
DX: R51.9 Headache, unspecified (principal); E87.6 Hypokalemia; E83.42 Hypomagnesemia; R20.2 Paresthesia of skin; Z20.822 Contact with and (suspected) exposure to COVID-19; K74.60 Unspecified cirrhosis of liver; K76.9 Liver disease, unspecified; F32.A Depression, unspecified; Z88.3 Allergy status to other anti-infective agents; Z88.8 Allergy status to other drugs, medicaments and biological substances; Z91.048 Other nonmedicinal substance allergy status
CPT/HCPCS: 93005; 85025; 80048; 36415; 80320; 82140; 83735; 80329 ×2; 84100; 85610; 80076; 85730; 84484; 83690; 70450; U0003; J3475; J2270; J1170; J7030; J2405; 96361; 96365; 96375; 99284

== ENCOUNTER 2021-12-27 16:35 | Inpatient (IN) | payer OTHER ==
--- OUTSIDE RECORDS SUMMARY | 2021-12-27 16:43 | XMS REPORT | Continuity of Care Document ---
:1960 Author Organization [facility] t Address [address] [place] [address] Care Team Providers Name Role Phone Robby [...] Expiration Date Faustino vasquez MEDICARE A B [id number] 2015 00:00:00 GENERIC MEDICAID [id number] 2021 HMO 00:00:00 Problems Condition Condition Condition [...] Added automatic ally from request for surgery [id number] Chronic Chronic Disease Active 2020-08 Methodi kidney [...] (BMI 7-26 ity of 30-39.9) 30-39.9) 00:00: [place] 00 Medical Branch Hematochez Hematochez Disease Active U nivers ia ia 7 ity of 00:00: [place] [id number] Medical Branch Abdominal Abdominal Disease Active Met [...] Added automatic ally from request for surgery [id number] Bipolar Bipolar Disease Active Methodi disorder, disorder, [...] encephalop 09-13 it y of ath 00:00: [address] Branch Hepatic Hepatic Disease Active 2015-08 [...] shoulder 12-04 ity of pain pain 00:00: [place] [facility] 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 12-01 ity of 00:00: [place] 00 Medical Branch Anxiety Anxiety Disease Active Univers and and 12-01 ity of depression [place] [facility] [place] Rectal Rectal Disease Active 2014-08 Univers bleed bleed 09-14 ity of 00:00: [place] 00 Medical Branch Crohn Crohn Disease Active [facility] disease disease [facility] Allergies, Adverse Reactions, Alerts Allergy Allergy Status Severity Reaction(s) Onset Inactive Treating Comm ents Source Name Type Date Date Clinician FISH Allergy Active [facility] CONTAINI 2- NG 00:00: PRODUCTS 00 SHELLFIS Allergy Active [facility] H 2 CONTAINI 00:00: NG 00 PRODUCTS Eggshell Drug Active [facility] Allergy 09[facility]07 [facility]: Medical 00 [place] EGGSHELL Allergy Active [facility] MEMBRANE - 00:00: 00 CEFTRIAX Allergy Active [facility] ONE 09-02 [facility] 00[facility]: Medical 00 [place] IODINE Allergy Active [facility] 09[facility] Medical 00 [place] PROMETHA Allergy Active [facility] ZINE 09-02 [facility]: Medical 00 [place] Ceftriax Propensi Active [facility] one ty [...] Hospita reaction 00 l s to drug Prometha Propensi Active Other (See 0 Severe Me thodi zine ty to Comments) 1- confusion st adverse 00:00: Hospita reaction 00 l s to drug Shellfis Propensi Active Anaphylaxis 0 U nivers h ty to 924 ity of Derived adverse 00:00: [place] reaction 00 Medical s Branch Shellfis Propensi Active Anaphylaxis M ethodi h ty to 9 st Derived adverse 00:00: Hospita reaction 00 l s to drug Iodine Propensi Active Anaphylaxis SOB, Met [facility] ty to 9 wheezing, st adverse 00:00: "my Hospita reaction 00 throat l s to closes drug up."*pt states cannot have topical nor IV Iodine Propensi Active Anaphylaxis Uni vers ty to 8-18 ity of adverse 00:00: [place] reaction 00 Medical s Branch Phenerga Adverse Active Info Not Commo n n Reaction Available [facility] Iodine Adverse Active Info Not Common Reaction Available [facility] NO KNOWN Allergy Active [facility] ALLERGIE S Family History Family Member Diagnosis Comments Start Date Stop Date Source Natural father No Known Problems Met [facility] Natural mother No Known Problems Met [facility] Social History Social Habit Start Date Stop Date Quantity Comments Source Exposure to Not sure University of SARS-CoV-2 (event) [facility] History SDOH [facility] Alcohol Frequency Hospita l History SDOH [facility] Alcohol Std Drinks Hospit al History SDOH [facility] Alcohol Binge Hospital Alcohol intake 2021-08-30 2021-08-30 Ex-drinker [facility] 00:00:00 [facility]:00:00 (finding) Hospital Tobacco use and 2019-01-30 2019-01-30 Never used Universit y of exposure 00:00:00 00:00:00 [facility] History of tobacco 1979-01-30 2018-08-12 Cigarette Smoker University of use 00:00:00 00:00:00 [facility] Cigarettes smoked 2016-11-22 2016-11-[address] current (pack per 00:00:00 00:00:00 Hospita l day) - Reported Cigarette 2016-11-22 2016-11-22 [facility] pack-years 00:00:00 00:00:00 Hospital Tobacco Comment 2016-09-12 2016-09-12 smokes 5 [facility] 00:00:00 00:00:00 cigarettes per Hospital day Alcohol Comment 2016-05-02 2016-05-02 Former social Method ist 00:00:00 00:00:00 alcohol use, quit Hospita l several years ago; denies history of heavy alcohol use Sex Assigned At [birth year] [facility] 00:[facility]:00 Hospital Smoking Status Start Date Stop Date Source Never smoker [facility] Ex-smoker 2016-11-22 00:00:00 2016-11-22 [facility] Medications Ordered Filled Start Stop Current Ordering Indication Dosage Frequency Signature Comments Components Source Medication Medication Date Date Medication? Clinician (SIG) Name Name estradioL Yes [id number] Apply 1g Univers (ESTRACE) - vaginally ity o f 0.01 % (0.1 00:00: at bedtime [place] mg/gram) 00 every Medical vaginal night for Branch cream 2 weeks and then apply 1g vaginally at bedtime 3 times per week (Saturday//) nystatin Yes [id number] Apply to U nivers (NYSTOP) 2-21 area(s) 3 ity of 100,000 00:00: (three) [place] unit/gram 00 times Medical powder daily. Branch methylnaltr Yes Take by Un linda exone 2-16 mouth. ity of bromide 14:28: [place] (RELISTOR 49 Medical ORAL) Branch potassium Yes Take by [facility] ers (POTASSIMIN 2-16 mouth once it y of ORAL) 14:28: now. [address] spironolact 0 Yes 100mg Take 100 U nivers one 100 mg 2-16 mg by ity of tablet 14:28: mouth. [address] cyanocobala Yes 1000ug Inject CH I [...] (two) Center times daily. lactulose Yes 1{packe Q.[id number] Take [address] (Kristalose 1-24 t} [id number] packet by Gurpreet ) 20 gram 16:27: [...] daily as l needed for anxiety. Per [facility] on Drug Monitoring Program records: Last filled: [...] tablet 18:28: nightly. Hosp page 48 Per [place] l Prescripti on Drug Monitoring Program records: Last filled: 08/09/21 Quantity: 30 Days Supply: 30 traMADoL Yes 50mg Q4H Take 50 mg Met hodi (ULTRAM) 50 1-[address] mg tablet 18:28: every 4 Hospi ta 48 (four) l hours as needed for moderate pain. Per [place] Prescripti on Drug Monitoring Program records: Last [...] a tablet 47 :00 l SUMAtriptan Yes [id number] 50mg Q24H Take 1 Methodi (Imitrex) 1-10 [...] nightly for 30 days. pantoprazol 2021- No [id number] 40mg QD Take 1 Methodi e 08-21 [...] for 30 days. gabapentin 2021- No 300mg Q.[id number] Take 1 Methodi (NEURONTIN) 04-[id number] 300 mg 00:00: 00:00 3D (300 mg Hospita capsule 00 :00 total) by l mouth 3 (three) times a day for 30 days. pantoprazol 2021- No [id number] 40mg QD Take 1 Methodi e 01-24 tablet (40 st (PROTONIX) 00:00: 00:00 mg total) H ospita 40 MG EC 00 :00 by mouth l tablet every morning. SUMAtriptan 2021- No [id number] 50mg Q24H Take 1 Methodi (Imitrex) 01-24 [...] 03-09 by mouth ity of 16:42: at [place] [address] bedtime. Medical Branch GABAPENTIN Yes Take by Uni vers ORAL 03-09 mouth. ity of 16:42: [place] [address] Medical Branch traMADOL 50 Yes 50mg Take 50 mg Univers mg tablet 03-09 by mouth ity of 16:42: as needed [place] [address] for Pain Medical (scale Branch 7-10). lactulose Yes [id number] 20g Take 1 Un linda (KRISTALOSE - Packet by ity of ) 20 gram 00:00: mouth 3 [place] packet 00 (three) Medical times Branch daily. ondansetron Yes [id number] 8mg Take 2 Univers 4 mg tablet 4-01 tablets by it y of 00:00: mouth [place] 00 every 8 Medical (eight) Branch hours as needed for Nausea and Vomiting (N/V). butalbital- Yes [id number] 1{capsu Take 1 Univers aspirin-caf 3-25 le} capsule by it y of feine 00:00: mouth [place] 50-325-40 00 every 4 Medical mg per (four) Branch capsule hours as needed for Pain (headache unrelieved wtih other medication s). XIFAXAN 550 2016-08 Yes [id number] TAKE ONE Univers mg tablet 1-27 TABLET BY ity o f 00:00: MOUTH 2 [place] 00 TIMES A Medical DAY Branch PANTOPRAZOL 2016-08 Yes [id number] TAKE ONE Univers E 40 mg EC [...] mouth. ity of tablet 00:00: [place] [address] [facility] Allopurinol Allopurinol Yes Fernando 2 tablets Common [facility] Immunizations Ordered Filled Immunization Date Status Comments Sour e Immunization Name Name Influenza Virus 2021-04-12 Completed Universit y of Vaccine 00:00:00 [facility] SARS-COV-2 COVID-19 2020-12-14 Completed Unive rsity of YANIRA/J&J VACCINE 00:00:00 [facility] Influenza (IM) 2018-04-21 Completed [facility] Preservative Free 00:00:00 Hospita l Influenza Virus 2018-04-21 Completed Universit y of Vaccine (3+ yrs) 00:00:00 [facility] dical Zanoni Pneumococcal 2016-05-08 Completed [facility] Conjugate 13-Valent 00:00:00 Hospi mateo FLUCELVAX QUAD PF 2016-05-[address] 00:00:00 Hospital Pneumococcal 13 2016-05-08 Completed Universit y of Conjugate, PCV13 00:00:00 [facility] dical (Prevnar 13) Zanoni Vital Signs Vital Name Observation Time Observation Value Comments Source Systolic blood 2021-11-16 18:59:00 111 mm[Hg] Univer [facility]ity of [facility] Diastolic blood 2021-11-16 18:59:00 74 mm[Hg] Unive rsity [facility] Heart rate 2021-11-16 18:59:00 75 /min [facility] Body temperature 2021-11-16 18:59:00 36.67 Georgette [facility] height 2021-11-16 18:59:00 149.9 cm [facility] Body weight 2021-11-16 18:59:00 80.559 kg [facility] BMI 2021-11-16 18:59:00 35.87 kg/m2 [facility] HEIGHT 2021-09-02 15:44:00 149.9 cm WEIGHT 2021-09-02 15:44:00 87.091 kg HEIGHT 2021-09-02 15:44:00 149.9 cm WEIGHT 2021-09-02 15:44:00 87.091 kg Systolic blood 2021-09-11 19:42:00 125 mm[Hg] [facility] Diastolic blood 2021-09-11 19:42:00 60 mm[Hg] [facility] Heart rate 2021-09-11 19:42:00 98 /min [facility] Body temperature 2021-09-11 19:42:00 35.67 Georgette [facility] Respiratory rate 2021-09-11 19:42:00 18 /min [facility] Oxygen saturation in 2021-09-11 19:42:00 100 /min [facility] Arterial blood by Medical Ce nter Pulse oximetry Body height 2021-09-02 15:44:00 149.9 cm [facility] Body weight 2021-09-02 15:44:00 87.091 kg [facility] BMI 2021-09-02 15:44:00 38.78 kg/m2 [facility] Systolic blood 2021-08-31 06:30:00 119 mm[Hg] [facility] pressure Diastolic blood 2021-08-31 06:30:00 68 mm[Hg] [facility] pressure Heart rate 2021-08-31 06:30:00 70 /min [facility] Respiratory rate 2021-08-31 06:30:00 16 /min [facility] Oxygen saturation in 2021-08-31 06:30:00 97 /min [facility] Arterial blood by Pulse oximetry Body temperature 2021-08-31 04:04:09 36.83 Georgette [facility] Body height 2021-08-31 04:04:00 149.9 cm [facility] Body weight 2021-08-31 04:04:00 89.359 kg [facility] BMI 2021-08-31 04:04:00 39.79 kg/m2 [facility] Procedures Procedure Date / Time Performing Clinician Source Performed HEPATIC FUNCTION PANEL 2021-09-11 05:33[facility]O 2021-09-11 05:33[facility]00 [facility]R 2021-09-11 05:33:00 Niya Cartagena [facility] BASIC METABOLIC PANEL (7) 2021-09-11 05:33:00 Niya Cartagena [facility] MAGNESIUM 2021-09-11 05:33:00 Selma Lu [facility] CBC W/PLT COUNT & AUTO 2021-09-11 05:33:00 [facility]EL 2021-09-10 06:52:00 Niya Cartagena [facility] CBC W/PLT COUNT & AUTO 2021-09-10 06:52:00 Niya Cartagena [facility] PROTHROMBIN TIME/INR 2021-09-10 06:52:00 Niya Cartagenaison [facility] BASIC METABOLIC PANEL (7) 2021-09-10 06:52:00 Henry Cartagenalizulma Haile on [facility] MAGNESIUM 2021-09-10 06:52:00 Selma Lu [facility] CBC W/PLT COUNT & AUTO 2021-09-10 06:52:00 [facility]EL 2021-09-09 05:51:00 KaimHenryNiyazulma White [facility] CBC W/PLT COUNT & AUTO 2021-09-09 05:51:00 [facility] PROT[facility]/INR 2021-09-09 05:51:00 Kaim Niya Cindy [facility] BASIC METABOLIC PANEL (7) 2021-09-09 05:51:00 Kaim Niya Allalireza [facility] CBC W/PLT COUNT & AUTO 2021-09-09 05:51:00 Kaim Niya Cindy [facility] (CELLAVISION MANUAL DIFF) 2021-09-09 05:51:00 Lizzjag Niya Allalireza [facility] AMMONIA 2021-09-08 10:54:00 Selma Lu [facility] PHOSPHORUS 2021-09-08 05:14:00 Zara Mason [facility] HEPATIC FUNCTION PANEL 2021-09-08 05:14:00 [facility] W/[facility]T [facility] & AUTO 2021-09-08 05:14:00 Kaim Niyazulma White [facility] PROTHROMBIN TIME/INR 2021-09-08 05:14:00 Mitzi Niya Cindy [facility] BASIC METABOLIC PANEL (7) 2021-09-08 05:14:00 Kaim Niyalilian Haile on [facility] CBC W/PLT COUNT & AUTO 2021-09-08 05:14:00 Kajag Niya Cindy [facility] (CELLAVISION MANUAL DIFF) 2021-09-08 05:14:00 MitziHenryNiya Allalireza on [facility] PHOSPHORUS 2021-09-07 05:37:00 Gianna Masonnalini [facility] HEPATIC FUNCTION PANEL 2021-09-07 05:37:00 Kaim Niyalilian Torrezison [facility] CBC W/PLT COUNT & AUTO 2021-09-07 05:37:00 Kaim Niyalilian White [facility] PROTHROMBIN TIME/INR 2021-09-07 05:37:00 Kaim Niyalilian Torrezison [facility] BASIC METABOLIC PANEL (7) 2021-09-07 05:37:00 Kaim Niyalilian Haile on [facility] CBC W/PLT COUNT & AUTO 2021-09-07 05:37:00 Lizzim Niyalilian Torrezison [facility] (CELLAVISION MANUAL DIFF) 2021-09-07 05:37:00 Kaim Niya Allalireza on [facility] PROTHROMBIN TIME/INR 2021-09-06 06:37:00 Kaim Niyalilian Torrezison [facility] BASIC METABOLIC PANEL (7) 2021-09-06 06:37:00 IsabellaGianna kennedynalin i [facility] PHOSPHORUS 2021-09-06 06:37:00 Gianna Masonnalini [facility] PROTHROMBIN TIME/INR 2021-09-05 14:31:00 Niya Cartagena [facility] BASIC METABOLIC PANEL (7) 2021-09-05 14:31:00 Isabella, Mrinalin i [facility] PHOSPHORUS 2021-09-05 14:31:00 Gianna Masonnalini [facility] CBC W/PLT COUNT & AUTO 2021-09-05 14:31:00 Zara Mason C [facility] HEPATIC FUNCTION PANEL 2021-09-05 14:31:00 Zara Mason C [facility] CBC W/PLT COUNT & AUTO 2021-09-05 14:31:00 Zara Mason C [facility] (CELLAVISION MANUAL DIFF) 2021-09-05 14:31:00 Gianna Masonnalin i [facility] C. DIFFICILE GDH TOXIN 2021-09-04 11:52:00 Britney Vitalea Rayna [facility] CT ABDOMEN/PELVIS WITH IV 2021-09-04 09:03:00 Mirian Goodman Bharat mar [facility] CONTRAST [facility] CT CHEST WITH IV CONTRAST 2021-09-04 09:03:00 Mable Mason i [facility] CBC W/PLT COUNT & AUTO 2021-09-04 04:39:00 Lucia Lawrence [facility] COMPREHENSIVE METABOLIC 2021-09-04 04:39:00 Lucia Lawrence [facility] MAGNESIUM 2021-09-04 04:39:00 Lucia Lawrence [facility] PHOSPHORUS 2021-09-04 04:39:00 Lucia Lawrence [facility] CBC W/PLT COUNT & AUTO 2021-09-04 04:39:00 Lucia Lawrence [facility] (CELLAVISION MANUAL DIFF) 2021-09-04 04:39:00 Lucia Lawrence sa [facility] HEPATITIS A ANTIBODY, IGG 2021-09-03 12:02:00 Juve Masonin maverick [facility] HEPATITIS B CORE ANTIBODY, 2021-09-03 12:02:00 Laura Mason ni [facility] TOTAL [facility] HEPATITIS B SURFACE 2021-09-03 12:02:00 Zara Mason [facility] ANTIBODY [facility] HEPATITIS B SURFACE 2021-09-03 12:02:00 Zara Mason [facility] ANTIGEN [facility] HEPATITIS C ANTIBODY 2021-09-03 12:02:00 Zara Mason [facility] CBC W/PLT COUNT & AUTO 2021-09-03 12:01:00 Lucia Lawrence [facility] (CELLAVISION MANUAL DIFF) 2021-09-03 12:01:00 Lucia Lawrence sa [facility] CBC W/PLT COUNT & AUTO 2021-09-03 12:01:00 Lucia Lawrence [facility] COMPREHENSIVE METABOLIC 2021-09-03 12:01:00 Lucia Lawrence [facility] MAGNESIUM 2021-09-03 12:01:00 Lucia Lawrence [facility] PHOSPHORUS 2021-09-03 12:01:00 Lucia Lawrencessa [facility] PROTHROMBIN TIME/INR 2021-09-03 12:01:00 Jr [facility] BLOOD CULTURE 2021-09-03 11:59:00 Lucia Lawrence [facility] OVA AND PARASITE 2021-09-02 09:44:00 Troy Awadil [facility] GI PATHOGEN PROFILE BY PCR 2021-09-02 09:44:00 Troy Awad il [facility] BLOOD CULTURE 2021-09-02 06:03:00 Lucia Lawrence [facility] CBC W/PLT COUNT & AUTO 2021-09-02 06:03:00 Lucia Lawrence [facility] COMPREHENSIVE METABOLIC 2021-09-02 06:03:00 Lucia Lawrence [facility] MAGNESIUM 2021-09-02 06:03:00 Lucia Lawrence [facility] PHOSPHORUS 2021-09-02 06:03:00 Lucia Lawrence [facility] C-REACTIVE PROTEIN 2021-09-02 06:03:00 Lucia Lawrence [facility] CBC W/PLT COUNT & AUTO 2021-09-02 06:03:00 Lucia Lawrence [facility] (CELLAVISION MANUAL DIFF) 2021-09-02 06:03:00 Lucia Lawrence [facility] IRON, TIBC, % SAT. 2021-09-02 06:01:00 Lucia Lawrence [facility]WITHOUT FERRITIN) [facility] VITAM[facility] B12 AND FOLATE 2021-09-02 06:01:00 Lucia Lawrence [facility] CT BRAIN WITHOUT IV 2021-09-02 02:39:00 Lucia Lawrence [facility] CONTRAST [facility] US ABDOMEN LIMITED 2021-09-02 02:09:00 [facility] 2021-09-02 01:29:[address] [facility] URINALYSIS W/ REFLEX URINE 2021-09-02 01:29:00 Lucia Lawrence [facility] XR CHEST 1 VIEW PORTABLE / 2021-09-02 01:02:00 Lucia Lawrence [facility] BEDSIDE [facility] CBC W/PLT COUNT & AUTO 2021-09-01 22:55:00 [facility] LACT[facility] ACID, VENOUS 2021-09-01 22:55:00 [facility] PT/APTT 2021-09-01 22:55:00 [facility] HEPATIC FUNCTION PANEL 2021-09-01 22:55:[address] [facility] BASIC METABOLIC PANEL (7) 2021-09-01 22:55:00 Lucia Lawrence [facility] MAGNESIUM 2021-09-01 22:55:00 [facility] 2021-09-01 22:55:00 [facility] CBC W/PLT COUNT & AUTO 2021-09-01 22:55:00 Lucia Lawrence [facility] (CELLAVISION MANUAL DIFF) 2021-09-01 22:55:00 Lucia Lawrence [facility] POCT-GLUCOSE METER 2021-09-01 22:36:00 Dawna Anguiano [facility] CT ABDOMEN PELVIS WO 2021-08-31 05:50:00 [facility] CONTRAST [facility] HC COMPLETE BLD COUNT 2021-08-31 04:21:00 [facility] W/[facility]O DIFF [facility] COMPREHENSIVE METABOLIC 2021-08-31 04:21:00 [facility] PANEL [facility] LACTIC ACID, I-STAT 2021-08-31 04:21:00 [facility] ESTIMATED GFR 2021-08-31 04:21:00 [facility] SPIROMETRY, DIFFUSION, 2021-08-25 19:27:26 [facility] LUN[facility] VOLUMES, MIPS/MEPS XR CHEST 2 VW 2021-08-25 18:00:20 [facility] XR PANOREX 2021-08-25 17:59:56 [facility] POC GLUCOSE 2021-08-25 13:51:00 Jennifer Ghosh spital SALEEM-POSEY VIRUS 2021-08-25 11:08:00 [facility] ANTIBODY TEST HC COMPLETE BLD COUNT 2021-08-25 11:08:00 Davina Jennifer [facility] W/AUTO DIFF COMPREHENSIVE METABOLIC 2021-08-25 11:08:00 [facility] PROTHROMBIN TIME WITH INR 2021-08-25 11:08:00 Davina Jennifer [facility] ESTIMATED GFR 2021-08-25 11:08:00 Jennifer Ghosh Ho spital POC GLUCOSE 2021-08-25 03:18:00 Jennifer Ghosh Ho spital POC GLUCOSE 2021-08-25 00:22:00 Jennifer Ghosh Ho spital POC GLUCOSE 2021-08-24 19:43:00 Jennifer Ghosh spital CREATININE LEVEL, URINE, 2021-08-24 18:13:00 Jennifer Ghosh [facility] TIMED PROTEIN, URINE, TIMED 2021-08-24 18:13:00 Jennifer Ghosh [facility] CV SELECTIVE CORONARY 2021-08-24 16:44:00 Cabrera Fierro [facility] ANGIOGRAPHY [place] HC COMPLETE BLD COUNT 2021-08-24 11:01:00 Ting Pierson [facility] W/AUTO DIFF [facility] BASIC METABOLIC PANEL 2021-08-24 11:01:00 Ting Pierson [facility] HEPATIC FUNCTION PANEL 2021-08-24 11:01:00 [facility] LEVEL 2021-08-24 11:01:00 Alma Girard spimateo Self PROTHROMBIN TIME WITH INR 2021-08-24 11:01:00 [facility] ESTIM[facility]FR 2021-08-24 11:01:00 Alma Girard spital Aramis POC GLUCOSE 2021-08-24 03:07:00 Jennifer Ghosh Ho spital POC GLUCOSE 2021-08-24 00:11:00 Jennifer Ghosh COVID-19 QUALITATIVE 2021-08-23 22:15:00 Dayo Moeller [facility] RT-PCR POC GLUCOSE 2021-08-23 19:17:00 Jennifer Ghosh Ho spital POC GLUCOSE 2021-08-23 14:05:00 Jennifer Ghosh Ho spital HC COMPLETE BLD COUNT 2021-08-23 11:49:00 Ting Pierson [facility] W/AUTO DIFF [facility] BASIC METABOLIC PANEL 2021-08-23 11:49:00 Ting Pierson [facility] HEPATIC FUNCTION PANEL 2021-08-23 11:49:00 [facility] MAGNESIUM LEVEL 2021-08-23 11:49:00 Alma Girard Aramis PROTHROMBIN TIME WITH INR 2021-08-23 11:49:00 [facility] ALPHA FETOPROTEIN 2021-08-23 11:49:00 [facility] ALPHA-1 ANTITRYPSIN LEVEL 2021-08-23 11:49:00 [facility] ANTI SMOOTH MUSCLE AB 2021-08-23 11:49:00 [facility] SCREEN C-REACTIVE PROTEIN 2021-08-23 11:49:00 [facility] CANCER ANTIGEN 125 2021-08-23 11:49:00 [facility] CANCER ANTIGEN 19-9 2021-08-23 11:49:00 [facility] CARCINOEMBRYONIC ANTIGEN 2021-08-23 11:49:00 [facility] (CEA) CERULOPLASMIN LEVEL 2021-08-23 11:49:00 [facility] CORTISOL LEVEL, RANDOM 2021-08-23 11:49:00 [facility] CORTISOL, FREE BY 2021-08-23 11:49:00 [facility] ED/LC-MS/MS CYTOMEGALOVIRUS AB, IGG 2021-08-23 11:49:00 [facility] CYTOMEGALOVIRUS AB, IGM 2021-08-23 11:49:00 [facility] DRUG KIM 9, SER/THAIS, SCRN 2021-08-23 11:49:00 [facility] W/RFLX TO CONF FERRITIN LEVEL 2021-08-23 11:49:00 [facility] FIBRINOGEN 2021-08-23 11:49:00 [facility] HEPATITIS A ANTIBODY IGM 2021-08-23 11:49:00 [facility] HEPATITIS A ANTIBODY TOTAL 2021-08-23 11:49:[address] [facility] HEPATITIS B CORE ANTIBODY 2021-08-23 11:49:00 [facility] TOTAL HEPATITIS B SURFACE 2021-08-23 11:49:00 [facility] ANTIBODY HEPATITIS B SURFACE 2021-08-23 11:49:00 [facility] ANTIGEN HEPATITIS C ANTIBODY 2021-08-23 11:49:00 [facility] HIV AG/AB COMBINATION 2021-08-23 11:49:00 [facility] HIV-1 RNA, QUALITATIVE TMA 2021-08-23 11:49:[address] [facility] HLA TRANSPLANT EVALUATION 2021-08-23 11:49:00 [facility] LIPID PANEL 2021-08-23 11:49:00 [facility] BARBITURATES, S/P, QUANT 2021-08-23 11:49:00 [facility] [facility] PARTIAL THROMBOPLASTIN 2021-08-23 11:49:00 [facility] TIME (PTT) PHOSPHATIDYLETHANOL, BLOOD 2021-08-23 11:49:[address] [facility] PHOSPHORUS LEVEL 2021-08-23 11:49:00 [facility] PREALBUMIN LEVEL 2021-08-23 11:49:00 [facility] SERUM ELECTROPHORESIS 2021-08-23 11:49:00 [facility] SYPHILIS TREPONEMA SCREEN 2021-08-23 11:49:00 [facility] WITH RPR CONFIRMATION (REVERSE ALGORITHM) T3, FREE 2021-08-23 11:49:00 [facility] TB T-SPOT 2021-08-23 11:49:00 [facility] TOTAL IRON BINDING 2021-08-23 11:49:00 [facility] CAPACITY ZINC LEVEL, SERUM 2021-08-23 11:49:00 [facility] ESTIMATED GFR 2021-08-23 11:49:00 Alma Girard SINGLE ANTIGEN BEADS 2021-08-23 11:49:00 [facility] C1Q CLASS 1 & 2 ANTIBODY 2021-08-23 11:49:[address] [facility] [address] CHEST WO CONTRAST 2021-08-23 04:25:00 Calos Garcia [facility] POC GLUCOSE 2021-08-23 02:55:00 Jennifer Ghoshtal US CAROTID DUPLEX 2021-08-23 02:40:00 Calos Garcia [facility] BILATERAL TTE COMPLETE, WO CONTRAST, 2021-08-22 23:47:00 [facility] W AGITATED SALINE ([id number]) US ABDOMEN COMPLETE 2021-08-22 22:30:00 Calos Garcia [facility] ECG 12-LEAD 2021-08-22 21:31:09 [facility] POC GLUCOSE 2021-08-22 13:43:00 Jennifer Ghoshtal HC COMPLETE BLD COUNT 2021-08-22 10:59:00 [facility]/AUTO DIFF [facility] BASIC METABOLIC PANEL 2021-08-22 10:59:00 [facility] HEPATIC FUNCTION PANEL 2021-08-22 10:59:00 [facility] MAGNESI[facility] LEV[facility] 2021-08-22 10:59:00 Alma Girard Aramis PHOSPHORUS LEVEL 2021-08-22 10:59:00 Alma Girard ospimateo Self PROTHROMBIN TIME WITH INR 2021-08-22 10:59:00 [facility] ESTIMATED GFR 2021-08-22 10:59:00 Alma Girardtal Aramis POC GLUCOSE 2021-08-22 03:06:00 Jennifer Ghosh Ho spital POC GLUCOSE 2021-08-22 00:27:00 Jennifer Ghosh Ho spital POC GLUCOSE 2021-08-21 19:09:00 Jennifer Ghosh Ho spital POC GLUCOSE 2021-08-21 13:46:00 Alma Girardtal Aramis HC COMPLETE BLD COUNT 2021-08-21 10:56:00 [facility] W/AUTO DIFF [facility] BASIC METABOLIC PANEL 2021-08-21 10:56:00 Ting Pierson [facility] HEPATIC FUNCTION PANEL 2021-08-21 10:56:00 [facility] MAGNESI[facility] LEVEL 2021-08-21 10:56:00 Alma Girard Ho spital Aramis PHOSPHORUS LEVEL 2021-08-21 10:56:00 Alma Girard H ospital Aramis PROTHROMBIN TIME WITH INR 2021-08-21 10:56:00 [facility]FR 2021-08-21 10:56:00 Alma Girard Ho spital Aramis POC GLUCOSE 2021-08-21 03:20:00 Alma Girard spital [place] POC GLUCOSE 2021-08-20 14:56:00 Jennifer Ghosh Ho spital HC COMPLETE BLD COUNT 2021-08-20 10:57:00 Ting Pierson [facility] W/AUTO DIFF [facility] BASIC METABOLIC PANEL 2021-08-20 10:57:00 Ting Pierson [facility] HEPATIC FUNCTION PANEL 2021-08-20 10:57:00 [facility] MAGNESIUM LEVEL 2021-08-20 10:57:00 Alma Girard spital Aramis PHOSPHORUS LEVEL 2021-08-20 10:57:00 Alma Girard ospital Aramis PROTHROMBIN TIME WITH INR 2021-08-20 10:57:00 [facility] EST[facility] GFR 2021-08-20 10:57:00 Alma Girard spital Aramis POC GLUCOSE 2021-08-20 02:42:00 Alma Girard Ho spital [place]amis POC GLUCOSE 2021-08-19 20:04:00 Alma Girard spital Aramis HC COMPLETE BLD COUNT 2021-08-19 11:38:00 Ting Pierson [facility] W/AUTO DIFF Aramis BASIC METABOLIC PANEL 2021-08-19 11:38:00 Ting Pierson [facility] HEPATIC FUNCTION PANEL 2021-08-19 11:38:00 [facility] MAGNESIUM LEVEL 2021-08-19 11:38:00 Alma Girard PHOSPHORUS LEVEL 2021-08-19 11:38:00 Alma Girard ossheldon Self PROTHROMBIN TIME WITH INR 2021-08-19 11:38:00 [facility] 2021-08-19 11:38:00 Alma Girard POC GLUCOSE 2021-08-19 03:14:00 Ting Alma Pierson POC GLUCOSE 2021-08-18 23:30:00 Ting Alma Pierson POC GLUCOSE 2021-08-18 15:37:00 Ting Alma Pierson URINE CULTURE 2021-08-18 12:53:00 Ting Alma Pierson URINALYSIS SCREEN AND 2021-08-18 11:31:00 [facility] MICROSCOPY, WITH REFLEX TO Aramis CULTURE LACTIC ACID LEVEL, SEPSIS 2021-08-18 10:21:00 Orlando Balderrama [facility] - NOW AND REPEAT 2X EVERY 3 HOURS HC COMPLETE BLD COUNT 2021-08-18 10:21:00 [facility] W/AUTO DIFF Aramis BASIC METABOLIC PANEL 2021-08-18 10:21:00 [facility] HEPATIC FUNCTION PANEL 2021-08-18 10:21:00 [facility] MAGNESIUM LEVEL 2021-08-18 10:21:00 Ting Alma Pierson PHOSPHORUS LEVEL 2021-08-18 10:21:00 Ting Alma Pierson ospimateo Self PROTHROMBIN TIME WITH INR 2021-08-18 10:21:00 [facility] 2021-08-18 10:21:00 [facility] Pierson LACTIC ACID LEVEL, SEPSIS 2021-08-18 07:56:00 [facility] - NOW AND REPEAT 2X EVERY 3 HOURS BLOOD CULTURE, AEROBIC & 2021-08-18 05:00:00 [facility] Aramis ECG 12-LEAD 2021-08-18 04:24:[address] [facility] [address] ABDOMEN PELVIS WO 2021-08-18 04:19:03 [facility] CONTRAST CT HEAD WO CONTRAST 2021-08-18 04:18:21 [facility] LACTIC ACID LEVEL, SEPSIS 2021-08-18 03:37:00 [facility] - NOW AND REPEAT 2X EVERY 3 HOURS B NATRIURETIC PEPTIDE 2021-08-18 03:37:00 [facility] PROTHROMBIN TIME WITH INR 2021-08-18 03:20:00 [facility] AMMONIA LEVEL 2021-08-18 03:20:00 [facility] TROPONIN T 2021-08-18 03:20:00 [facility] XR CHEST 1 VW PORTABLE 2021-08-18 03:14:19 [facility] HC COMPLETE BLD COUNT 2021-08-18 03:03:00 [facility] W/AUTO DIFF COMPREHENSIVE METABOLIC 2021-08-18 03:03:00 [facility] PANEL ESTIMATED GFR 2021-08-18 03:03:00 [facility] RESPIRATORY PATHOGEN PANEL 2021-08-18 03:03:00 [facility] WITH COVID-19 RT-PCR ECG ED PRELIMINARY 2021-08-18 02:54:33 [facility] INTERPRETATION COVID-19 QUALITATIVE 2021-08-11 05:31:00 [facility] RT-PCR [place] COMPREHENSIVE METABOLIC 2021-08-11 05:30:00 [facility] PANEL [facility] HC COMPLETE BLD COUNT 2021-08-11 05:30:00 [facility] W/AUTO DIFF [facility] LACTIC ACID, I-STAT 2021-08-11 05:30:00 [facility] ESTIMATED GFR 2021-08-11 05:30:00 [facility] ECG 12-LEAD 2021-08-11 05:15:35 [facility] URINALYSIS 2021-08-11 05:00:00 [facility] XR CHEST 1 VW PORTABLE 2021-08-11 04:27:00 [facility] LACTIC ACID, I-STAT 2021-06-28 22:37:00 Romero Limon [facility] URINALYSIS 2021-06-28 21:45:00 Romero Limon yusuftal HC COMPLETE BLD COUNT 2021-06-28 20:01:00 Romero Limon [facility] W/AUTO DIFF PROTHROMBIN TIME WITH INR, 2021-06-28 20:01:00 Romero Limon [facility] I-STAT COMPREHENSIVE METABOLIC 2021-06-28 20:01:00 Romero Limon [facility] PANEL LACTIC ACID, I-STAT 2021-06-28 20:01:00 Romero Limon [facility] SEDIMENTATION RATE 2021-06-28 20:01:00 Romero Limon [facility] ESTIMATED GFR 2021-06-28 20:01:00 Romero Limon spital COVID-19 QUALITATIVE 2021-06-28 20:01:00 [facility] BLOOD CULTURE, AEROBIC & 2021-06-28 20:01:00 Romero Limon [facility] ANAEROBIC HC COMPLETE BLD COUNT 2021-06-21 11:20:00 Dinakar, [facility] W/AUTO DIFF [facility] BASIC METABOLIC PANEL 2021-06-21 11:20:00 Dinakar, [facility] HEPATIC FUNCTION PANEL 2021-06-21 11:20:00 Dinakar, [facility] MAGNESIUM LEVEL 2021-06-21 11:20:00 Dinakar, [facility] TIME WITH INR 2021-06-21 11:20:00 Dinakar, [facility] PHOSPHORUS LEVEL 2021-06-21 11:20:00 Dinakar, Pierce Marquez ospital [facility] ESTIMATED GFR 2021-06-21 11:20:00 Dinakar, Pierce Mraquez [facility] PHOSPHATIDYLETHANOL, BLOOD 2021-06-21 11:20:[address] [facility] URINE DRUGS OF ABUSE 2021-06-21 10:11:00 [facility] SCREEN URINALYSIS SCREEN AND 2021-06-21 10:10:00 [facility] MICROSCOPY, WITH REFLEX TO CULTURE URINE CULTURE 2021-06-21 10:10:00 [facility] COVID-19 SEROLOGY PATIENT 2021-06-20 17:52:00 Dinakar, [facility] SURVEILLANCE [facility] COVID-19 ANTI-SPIKE IGG 2021-06-20 17:52:00 Dinakar, [facility] ANTIBODY TITER [facility] HC COMPLETE BLD COUNT 2021-06-20 11:03:00 Dinakar, [facility] W/AUTO DIFF [facility] BASIC METABOLIC PANEL 2021-06-20 11:03:00 Dinakar, [facility] HEPATIC FUNCTION PANEL 2021-06-20 11:03:00 Dinakar, [facility] MAGNESIUM LEVEL 2021-06-20 11:03:00 Dinakar, Pierce Marquez [facility] PROTHROMBIN TIME WITH INR 2021-06-20 11:03:00 Dinakar, [facility] PHOSPHORUS LEVEL 2021-06-20 11:03:00 Pierce Marshall ospital Erika ESTIMATED GFR 2021-06-20 11:03:00 Pierce Marshall Erika XR ABDOMEN 1 VW PORTABLE 2021-06-20 00:11:00 Annette Mayorga [facility] AMMONIA LEVEL 2021 11:27:00 Jennifer Ghosh spital HC COMPLETE BLD COUNT 2021 11:24:00 [facility]FF PROTHROMBIN TIME WITH INR 2021 11:24:00 [facility] METABOLIC 2021 11:24:00 [facility] PANEL PHOSPHORUS LEVEL 2021 11:24:00 Jennifer Ghosh ospital MAGNESIUM LEVEL 2021 11:24:00 Jennifer Ghosh spital HEMOGLOBIN A1C 2021 11:24:00 Davina [facility] THYROID STIMULATING 2021 11:24:00 [facility] HORMONE T4 2021 11:24:00 Davina Jennifer [facility] VITAMIN D 25 HYDROXY LEVEL 2021 11:24:00 [facility]IM[facility] GFR 2021 11:24:00 Jennifer Ghosh spital LACTIC ACID, I-STAT 2021 01:31:00 [facility] COVID-19 QUALITATIVE 2021 01:21:00 Diana Bangura [facility] RT-PCR CLOSTRIDIUM DIFFICILE 2021 00:30:00 Diana Bangura Bin [facility] TOXIN ENTERIC BACTERIAL PANEL 2021 00:30:00 Diana Bangura [facility] URINALYSIS 2021 00:09:00 Diana Bangura [facility] METABOLIC 2021-06-18 22:51:00 Diana Bangura Bin [facility] PANEL AMYLASE LEVEL 2021-06-18 22:51:00 Willem, Diana [facility] ESTIMATED GFR 2021-06-18 22:51:00 Diana Bangura [facility] AMYLASE LEVEL 2021-06-18 21:51:00 Diana Bangura Bin [facility] ESTIMATED GFR 2021-06-18 21:51:00 Diana Bangura [facility] HC COMPLETE BLD COUNT 2021-06-18 21:51:00 Diana Bangura [facility] W/AUTO DIFF COMPREHENSIVE METABOLIC 2021-06-18 21:51:00 Diana Bangura [facility] PANEL LACTIC ACID, I-STAT 2021-06-18 21:51:00 [facility] AMMONIA LEVEL 2021-06-18 21:47:00 Diana Bangura Bin [facility] HC COMPLETE BLD COUNT 2021-06-02 09:45:00 [facility] W/AUTO DIFF PROTHROMBIN TIME WITH INR 2021-06-02 09:45:00 [facility] BASIC METABOLIC PANEL 2021-06-02 09:45:00 [facility] HEPATIC FUNCTION PANEL 2021-06-02 09:45:00 [facility] PHOSPHORUS LEVEL 2021-06-02 09:45:00 [facility] MAGNESIUM LEVEL 2021-06-02 09:45:00 [facility] ospital ESTIMATED GFR 2021-06-02 09:45:00 [facility] ospital US ABDOMINAL LIMITED 2021-06-01 21:06:20 Joana Ling [facility] V[facility]IPUNC NEED PHYS 2021-06-01 14:32:45 Linda Torres [facility] SKILL,DX OR RX HC COMPLETE BLD COUNT 2021-06-01 10:30:00 [facility] W/AUTO DIFF PROTHROMBIN TIME WITH INR 2021-06-01 10:30:00 [facility] BASIC METABOLIC PANEL 2021-06-01 10:30:00 [facility] HEPATIC FUNCTION PANEL 2021-06-01 10:30:00 [facility] PHOSPHORUS LEVEL 2021-06-01 10:30:00 [facility] MAGNESIUM LEVEL 2021-06-01 10:30:00 [facility] ospital HEMOGLOBIN A1C 2021-06-01 10:30:00 [facility] ospital THYROID STIMULATING 2021-06-01 10:30:00 [facility] HORMONE T4 2021-06-01 10:30:00 [facility] ospital VITAMIN D 25 HYDROXY LEVEL 2021-06-01 10:30:00 [facility] ZINC LEVEL, SERUM 2021-06-01 10:30:00 [facility] ALPHA FETOPROTEIN 2021-06-01 10:30:00 [facility] AMMONIA LEVEL 2021-06-01 10:30:00 [facility] ospital ESTIMATED GFR 2021-06-01 10:30:00 [facility] ospital PHOSPHATIDYLETHANOL, BLOOD 2021-06-01 10:30:00 [facility] URINE CULTURE 2021-06-01 02:48:00 [facility] BLOOD CULT[facility], AEROBIC & 2021-06-01 02:43:00 [facility] ANAEROBIC BLOOD CULTURE, AEROBIC & 2021-06-01 02:42:00 [facility] ANAEROBIC URINALYSIS SCREEN AND 2021-06-01 02:40:00 [facility] MICROSCOPY, WITH REFLEX TO CULTURE URINE DRUGS OF ABUSE 2021-06-01 02:40:00 [facility] SCREEN URIC ACID LEVEL 2021-06-01 02:38:00 [facility] ospital PROTHROMBIN TIME WITH INR 2021-06-01 02:38:00 [facility] PHOSPHORUS LEVEL 2021-06-01 02:38:00 [facility] PARTIAL THROMBOPLASTIN 2021-06-01 02:38:00 [facility] TIME (PTT) MAGNESIUM LEVEL 2021-06-01 02:38:00 [facility] ospital HEPATIC FUNCTION PANEL 2021-06-01 02:38:00 [facility] LDH 2021-06-01 02:38:00 [facility] ospital LACTIC ACID LEVEL 2021-06-01 02:38:00 [facility] FIBRINOGEN 2021-06-01 02:38:00 [facility] ospital HC COMPLETE BLD COUNT 2021-06-01 02:38:00 [facility] W/AUTO DIFF BASIC METABOLIC PANEL 2021-06-01 02:38:00 [facility] AMMONIA LEVEL 2021-06-01 02:38:00 [facility] ospital ESTIMATED GFR 2021-06-01 02:38:00 [facility] ospital COVID-19 SEROLOGY PATIENT 2021-06-01 02:38:00 [facility] SURVEILLANCE COVID-19 ANTI-SPIKE IGG 2021-06-01 02:38:00 [facility] ANTIBODY TITER ECG 12-LEAD 2021-06-01 01:06:10 [facility] ospital XR ABDOMEN 1 VW PORTABLE 2021-06-01 01:06:00 [facility] XR CHEST 1 VW PORTABLE 2021-06-01 01:02:00 [facility] COVID-19 QUALITATIVE 2021-06-01 00:37:00 [facility] RT-PCR HC COMPLETE BLD COUNT 2021-05-27 10:09:00 Jayesh Girard [facility] W/AUTO DIFF Aramis BASIC METABOLIC PANEL 2021-05-27 10:09:00 [facility]EL 2021-05-27 10:09:[address] [facility] MAGNESIUM LEVEL 2021-05-27 10:09:00 Alma Girard spital [facility]amis PHOSPHORUS LEVEL 2021-05-27 10:09:00 Alma Girard ospimateo [facility] PROTHROMBIN TIME WITH INR 2021-05-27 10:09:00 [facility] ESTIM[facility] GFR 2021-05-27 10:09:00 Alma Girard [facility]amis VENOUS BLOOD GAS 2021-05-26 23:37:00 Lucia Faustin COMPLETE BLD COUNT 2021-05-26 09:02:00 [facility] W/AUTO DIFF [facility] PROTHROMBIN TIME WITH INR 2021-05-26 09:02:00 [facility] COVID19 SEROLOGY PATIENT 2021-05-26 09:02:00 Abe Partida [facility] SURVEILLANCE Tom SMEAR REVIEW 2021-05-26 09:02:00 [facility] PHOSPHATIDYLETHANOL, BLOOD 2021-05-26 09:02:00 [facility] ANTI-SPIKE IGG 2021-05-26 09:02:00 Abe Partida [facility] ANTIBODY TITER Tom BASIC METABOLIC PANEL 2021-05-26 09:00:00 [facility] HEPATIC FUNCTION PANEL 2021-05-26 09:00:[address] [facility] MAGNESIUM LEVEL 2021-05-26 09:00:00 Alma Girard [facility] PHOSPHORUS LEVEL 2021-05-26 09:00:00 Alma Girard [facility] ALPHA FETOPROTEIN 2021-05-26 09:00:00 [facility] ZINC LEVEL, SERUM 2021-05-26 09:00:00 [facility] ESTIMATED GFR 2021-05-26 09:00:00 Alma Girard shane Aramis URINALYSIS SCREEN AND 2021-05-25 23:41:00 [facility] MICROSCOPY, WITH REFLEX TO Aramis CULTURE URINE DRUGS OF ABUSE 2021-05-25 23:41:00 Ting Pierson [facility] SCREEN Aramis URINE CULTURE 2021-05-25 23:41:00 Alma Girard spimateo Self US HEPATIC 2021-05-25 20:43:26 Alma Girard US ABDOMINAL DOPPLER 2021-05-25 20:40:00 [facility] HC COMPLETE BLD COUNT 2021-05-25 18:10:00 [facility] W/AUTO DIFF [facility] SMEAR REVIEW 2021-05-25 18:10:00 [facility] Castroalo [facility] NEED PHYS 2021-05-25 15:59:39 Tristin Hunt [facility] SKILL,DX OR RX CBC WITH PLATELET AND 2021-05-25 13:57:00 [facility] COMPREHENSIVE METABOLIC 2021-05-25 13:57:00 [facility] PANEL Aramis ESTIMATED GFR 2021-05-25 13:57:00 Alma Girard [facility] LACTIC ACID, I-STAT 2021-05-25 00:58:00 Romero Limon [facility] COVID-19 QUALITATIVE 2021-05-25 00:00:00 Romero Limon [facility] RT-PCR CT ABDOMEN PELVIS WO 2021-05-24 23:16:57 Romero Limon [facility] CONTRAST URINALYSIS 2021-05-24 22:19:00 Romero Limon [facility] HC COMPLETE BLD COUNT 2021-05-24 22:13:00 Romero Limon [facility] W/AUTO DIFF COMPREHENSIVE METABOLIC 2021-05-24 22:13:00 Romero Limon [facility] PANEL AMYLASE LEVEL 2021-05-24 22:13:00 Romero Limon spital LACTIC ACID, I-STAT 2021-05-24 22:13:00 Romero Limon [facility] ESTIMATED GFR 2021-05-24 22:13:00 [facility] spital BLOOD CULTURE, AEROBIC & 2021-05-24 22:00:00 Romero Limon [facility] ANAEROBIC CBC HEMOGRAM 2020-11-23 05:55:[address] [facility] PROTHR[facility] TIME WITH INR 2020-11-23 05:55:00 [facility] Aramis COMPREHENSIVE METABOLIC 2020-11-23 05:55:00 [facility] PANEL Aramis ESTIMATED GFR 2020-11-23 05:55:00 [facility] COVID-19 QUALITATIVE 2020-11-23 01:57:00 Wild Kovacs [facility] RT-PCR Tomiwa LACTIC ACID, I-STAT 2020-11-23 01:40:00 Romero Limon [facility] CT HEAD WO CONTRAST 2020-11-22 23:20:00 Romero Limon [facility] HC COMPLETE BLD COUNT 2020-11-22 22:53:00 Romero Limon [facility] W/AUTO DIFF COMPREHENSIVE METABOLIC 2020-11-22 22:53:00 Romero Limon [facility] PANEL LACTIC ACID, I-STAT 2020-11-22 22:53:00 Romero Limon [facility] AMMONIA LEVEL 2020-11-22 22:53:00 Romero Limon spital VENOUS BLOOD GAS 2020-11-22 22:53:00 Romero Limon H ospital ESTIMATED GFR 2020-11-22 22:53:00 Romero Limon spital XR ABDOMEN ACUTE INC CHEST 2020-11-02 22:51:00 Cliff Levy [facility] 1V ESTIMATED GFR 2020-11-02 21:55:00 [facility] HC COMPLETE BLD COUNT 2020-11-02 21:55:00 [facility] W/AUTO DIFF COMPREHENSIVE METABOLIC 2020-11-02 21:55:00 [facility] PANEL PROTHROMBIN TIME WITH INR 2020-11-02 21:55:00 [facility] COVID-19 QUALITATIVE 2020-11-02 21:05:00 [facility] RT-PCR NM BRAIN SPECT W I 123 2020-10-26 19:02:00 Cliff Levy [facility] DATSCAN HC COMPLETE BLD COUNT 2020-10-24 10:15:00 [facility] W/AUTO DIFF BASIC METABOLIC PANEL 2020-10-24 10:15:00 [facility] HEPATIC FUNCTION PANEL 2020-10-24 10:15:00 [facility] MAGNESIUM LEVEL 2020-10-24 10:15:00 [facility] ospital PHOSPHORUS LEVEL 2020-10-24 10:15:00 [facility] PROTHROMBIN TIME WITH INR 2020-10-24 10:15:00 [facility] HEMOGLOBIN A1C 2020-10-24 10:15:00 [facility] ospital THYROID STIMULATING 2020-10-24 10:15:00 [facility] HORMONE T4 2020-10-24 10:15:00 [facility] ospital VITAMIN D 25 HYDROXY LEVEL 2020-10-24 10:15:00 [facility] ZINC LEVEL, SERUM 2020-10-24 10:15:00 [facility] ALPHA FETOPROTEIN 2020-10-24 10:15:00 [facility] ESTIMATED GFR 2020-10-24 10:15:00 [facility] ospital URINE DRUGS OF ABUSE 2020-10-24 10:00:00 [facility] SCREEN LACTIC ACID LEVEL, SEPSIS 2020-10-24 06:20:00 [facility] - NOW AND REPEAT 2X EVERY 3 HOURS LACTIC ACID LEVEL, SEPSIS 2020-10-24 02:25:00 [facility] - NOW AND REPEAT 2X EVERY 3 HOURS XR CHEST 1 VW PORTABLE 2020-10-24 00:08:00 Rehrer, [facility] BLOOD CULTURE, AEROBIC & 2020-10-23 23:31:00 Rehrer, [facility] ANAEROBIC RESPIRATORY PATHOGEN PANEL 2020-10-23 23:31:00 Rehrer, [facility] WITH COVID-19 RT-PCR COMPREHENSIVE METABOLIC 2020-10-23 23:31:00 Rehrer, [facility] PANEL PHOSPHORUS LEVEL 2020-10-23 23:31:00 Rehrer, [facility] MAGNESIUM LEVEL 2020-10-23 23:31:00 Rehrer, [facility] LACTIC ACID LEVEL, SEPSIS 2020-10-23 23:31:00 [facility] - NOW AND REPEAT 2X EVERY 3 HOURS LIPASE LEVEL 2020-10-23 23:31:00 Rehrer, [facility] ESTIMATED GFR 2020-10-23 23:31:00 Rehrer, [facility] HC COMPLETE BLD COUNT 2020-10-23 23:20:00 Rehrer, [facility] W/AUTO DIFF PROTHROMBIN TIME WITH INR 2020-10-23 23:20:00 Rehrer, [facility] PARTIAL THROMBOPLASTIN 2020-10-23 23:20:00 Rehrer, [facility] TIME (PTT) AMMONIA LEVEL 2020-10-23 23:20:00 Rehrer, [facility] HC COMPLETE BLD COUNT 2020-10-10 00:05:00 Fabian Azevedo [facility] W/AUTO DIFF COMPREHENSIVE METABOLIC 2020-10-10 00:05:00 [facility] PANEL LACTIC ACID, I-STAT 2020-10-10 00:05:00 [facility] AMMONIA LEVEL 2020-10-10 00:05:00 [facility] ESTIMATED GFR 2020-10-10 00:05:00 [facility] URINALYSIS 2020-10-09 23:32:00 [facility] ECG 12-LEAD 2020-10-09 23:18:11 [facility] HC COMPLETE BLD COUNT 2020-09-21 10:28:00 [facility] W/AUTO DIFF BASIC METABOLIC PANEL 2020-09-21 10:28:00 [facility] HEPATIC FUNCTION PANEL 2020-09-21 10:28:00 [facility] MAGNESIUM LEVEL 2020-09-21 10:28:00 [facility] ospital PHOSPHORUS LEVEL 2020-09-21 10:28:00 [facility] PROTHROMBIN TIME WITH INR 2020-09-21 10:28:00 [facility] MISCELLANEOUS REFERRAL 2020-09-21 10:28:00 [facility] TEST VITAMIN B12 LEVEL 2020-09-21 10:28:00 [facility] FOLATE LEVEL 2020-09-21 10:28:00 [facility] ospital ESTIMATED GFR 2020-09-21 10:28:00 [facility] ospital COVID-19 QUALITATIVE 2020-09-20 20:51:00 Robby Perez [facility] RT-PCR Gabriel HC COMPLETE BLD COUNT 2020-09-20 12:08:00 [facility] W/AUTO DIFF BASIC METABOLIC PANEL 2020-09-20 12:08:00 [facility] HEPATIC FUNCTION PANEL 2020-09-20 12:08:00 [facility] MAGNESIUM LEVEL 2020-09-20 12:08:00 [facility] ospital PHOSPHORUS LEVEL 2020-09-20 12:08:00 [facility] PROTHROMBIN TIME WITH INR 2020-09-20 12:08:00 [facility] HEMOGLOBIN A1C 2020-09-20 12:08:00 [facility]ital THYROID STIMULATING 2020-09-20 12:08:00 [facility] HORMONE T4 2020-09-20 12:08:00 [facility] ospital VITAMIN D 25 HYDROXY LEVEL 2020-09-20 12:08:00 [facility] ZINC LEVEL, SERUM 2020-09-20 12:08:00 [facility] ALPHA FETOPROTEIN 2020-09-20 12:08:00 [facility] ESTIMATED GFR 2020-09-20 12:08:00 [facility] ospital CT CERVICAL SPINE WO 2020-09-20 06:50:26 [facility] PELVIS WO CONTRAST 2020-09-20 06:50:[facility] 2020-09-20 06:50[facility]M 2020-09-20 04:05:41 Bonny Rod [facility] 30-74 MINUTES Renee URINE CULTURE 2020-09-20 04:00:00 [facility] R[place]e URINALYSIS SCREEN AND 2020-09-20 04:00:00 Bonny Rod [facility] MICROSCOPY, WITH REFLEX TO Renee CULTURE URINE DRUGS OF ABUSE 2020-09-20 04:00:00 [facility]e MAGNESIUM LEVEL 2020-09-20 04:00:00 Bonny Rod spital [place]e TROPONIN 2020-09-20 04:00:00 Bonny Rod spital [place] XR KNEE 3 VW LEFT 2020-09-20 02:06:29 Marcel [facility] XR KNEE 3 VW RIGHT 2020-09-20 02:06:09 Marcel [facility] XR SHOULDER 2+ VW RIGHT 2020-09-20 02:05:46 [facility] 2020-09-20 02:05:00 Marcel [facility] W/AUTO DIFF [facility] PROTHROMBIN TIME WITH INR 2020-09-20 02:05:00 Bonny Rod [facility] PARTIAL THROMBOPLASTIN 2020-09-20 02:05:00 Bonny Rod [facility] TIME (PTT) [facility] COMPREHENSIVE METABOLIC 2020-09-20 02:05:00 [facility] [place] TROPONIN 2020-09-20 02:05:00 Bonny Rod spital Renee B NATRIURETIC PEPTIDE 2020-09-20 02:05:00 [facility] 2020-09-20 02:05:00 Bonny Rod yusuftal Renee ALCOHOL LEVEL, BLOOD 2020-09-20 02:05:00 [facility] 2020-09-20 02:05:00 Bonny Rod spital [place] Plan of Care Planned Activity Planned Date Details Comments Source Future Scheduled 2021-09-12 COLONOSCOPY SCREENING [facility] Test 12:13:11 [code = COLONOSCOPY SCREENING] Future Scheduled 2021-09-12 SHINGLES VACCINES [facility] Test 12:13:11 (#1) [code = SHINGLES VACCINES (#1)] Future Scheduled 2021-09-12 BREAST CANCER [facility] Test 12:13:11 SCREENING [code = BREAST CANCER SCREENING] Future Scheduled 2021-09-12 COVID-19 [facility]INE [facility] 12:13:11 Booster for Yanira series) [code = COVID-19 VACCINE (2 - Booster for Yanira series)] Future Scheduled 2021-09-12 [facility]INE [facility] 12:13:11 [code = INFLUENZA VACCINE] Future Scheduled 2021-09-12 [facility] Test 12:13:11 malignant neoplasm of cervix (procedure) [code = 958673490] Future Scheduled 2021-08-[address] [facility] Test 00:00:00 (12+) [code = [facility] DEPRESSION SCREENING (12+)] Future Scheduled 2021-04-[address] [facility] Test 00:00:00 (#1) [code = [facility] INFLUENZA VACCINE (#1)] Future Scheduled 2016-01-[address] [facility] Test 00:00:00 WELLNESS (YEAR [address] [facility] FIRST YEAR if no IPPE) [code = MEDICARE ANNUAL WELLNESS (YEAR 2 or FIRST YEAR if no IPPE)] Future Scheduled 2011 SHINGLES VACCINES ([address] [facility] Test 00:00:00 of 2) [code = [facility] SHINGLES VACCINES (1 of 2)] Future Scheduled [address] [facility] Test 00:00:00 (procedure) [code = [facility] 72436987] Future Scheduled [address] [facility] [facility] Test 00:00:00 [facility] of [facility] cervix (procedure) [code = 085723320] Future Scheduled 1980 DTAP/TDAP/TD VACCINES [facility] Test 00:00:00 (1 - Tdap) [code = Medical C enter DTAP/TDAP/TD VACCINES (1 - Tdap)] Future Scheduled 1973 COVID-19 VACCINE (1) [facility] Test 00:00:00 [code = COVID-[address] VACCINE (1)] Future Scheduled [address] [facility] Test 00:00:00 [facility] breast (procedure) [code = 229511033] Future Scheduled [address] [facility] Test 00[facility]00:00 [facility] colon (procedure) [code = 994356061] Encounters Start End Encounter Admission Attending Care Care Encounter Source Date/Time Date/Time Type Type Clinicians Facility Department ID 2021-09-06 Outpatient Díaz, STLMLC STLMLC Common 13:49:19 Fernando [facility]80 [facility] 2021-09-06 Outpatient Díaz, STLMLC STLMLC [id number] Common 13:45:16 Fernando 05694 [facility] 2021-09-06 Outpatient Díaz, STLMLC STLMLC [id number] Common 12:49:41 Fernando 36149 [facility] 2021-09-06 Outpatient Díaz, STLMLC STLMLC [id number] Common 12:05:14 Fernando 45724 [facility] 2021-09-06 Outpatient Díaz, STLMLC STLMLC [id number] Common 12:03:44 Fernando 40357 [facility] 2021-09-06 Outpatient Díaz, STLMLC STLMLC [id number] Common 11:42:32 Fernando 36178 [facility] 2021-09-06 Outpatient Díaz, STLMLC STLMLC [id number] Common 11:33:04 Fernando 96761 [facility] 2021-11-30 2021-11-30 ambulatory STLMLC STLMLC [id number] Common 00:00:00 00:00:00 [facility] 2021-11-16 2021-11-16 Office HERMELINDA Thompson [id number] [facility] 13:30:00 14:32:33 Visit Luisana PORRAS 350.1.13.10 i ty of [place] 4.2.7.2.686 Kalyani SKINNER [id number] Nh dical [address] 2021-10-27 2021-11-04 Inpatient [facility] [id number] [place] 00:00:00 00:00:00 Ava PIERSON i 2021-10-16 2021-10-16 ambulatory STLMLC STLMLC [id number] Common 00:00:00 00:00:00 [facility] 2021-10-13 2021-10-13 ambulatory STLMLC STLMLC [id number] Common 00:00:00 00:00:00 [facility] 2021-09-25 2021-09-25 ambulatory STLMLC STLMLC [id number] Common 00:00:00 00:00:00 [facility] 2021-09-01 2021-09-16 Inpatient ER RAFAEL, [facility] [id number] [facility] 22:15:00 12:13:00 NEJCOLTON 2021-09-04 2021-09-04 ambulatory STLMLC STLMLC [id number] Common 00:00:00 00:00:00 [facility] 2021-09-01 2021-09-01 Telephone Cristofer, 1.2.840.1 [id number] [id number] Methodi 00:00:00 00:00:[address] Matthew 3.430.2.7 Hospit a .3.155835 l .8 2021-09-01 2021-09-01 [facility] [id number] [facility] [address] 00:00:00 00:00:00 [facility] 2021-08-30 2021-08-31 Emergency [facility] [id number] [place] 00:00:00 00:00:[address] MOISES [address] 2021-08-30 2021-08-30 Travel 1.2.840.1 1.2.220.129 [id number] Methodi 00:00:00 00:00:[address] 3.430.2.7 0.2.7.3.698 Ho spita .3.342585 084.8 l .8 2021-08-29 2021-08-29 Travel 1.2.840.1 1.2.390.878 6553 [id number] Methodi 00:00:00 00:00:[address] 3.430.2.7 0.2.7.3.698 Ho spita .3.918750 084.8 l .8 2021-08-17 2021-08-25 [facility] Orlando Balderrama 1.2.840.1 [id number] Methodi 19:50:00 18:28:00 Encounter Aramis Girard 48374.1.[address] Jennifer Ghosh 3.430.2.7 Hos lis .3.818867 l .8 2021-08-25 2021-08-25 [facility] 1.2.840.1 1.2.827.713 8842 [id number] Methodi 00:00:00 00:00:[address] 3.430.2.7 0.2.7.3.698 Ho spita .3.068422 084.8 l .8 2021-08-24 2021-08-24 [facility], 1.2.840.1 [id number] [id number] Methodi 09:00:00 10:25:[address] 3.430.2.7 Hospit a .3.374147 l .8 2021-08-24 2021-08-24 Documentat Delcano, 1.2.840.1 [id number] 21 [id number] Methodi 00:00:00 00:00:[place] [address]1.[address] Matthew 3.430.2.7 Hospit a .3.496248 l .8 2021-08-23 2021-08-23 Documentat Delcano, 1.2.840.1 [id number] 21 [id number] Methodi 00:00:00 00:00:[place] [address] Matthew 3.430.2.7 Hospit a .3.037604 l .8 2021-08-21 2021-08-21 [facility], 1.2.840.1 [id number] Methodi 12:37:39 13:37:39 Work Scott 71390.1.[address] 3.430.2.7 Hospit a .3.491532 l .8 2021-08-21 2021-08-21 Documentat Cristofer, 1.2.840.1 [id number] Methodi 00:00:00 00:00:00 lupillo Rags[place] [address]6610.1.[address] Matthew 3.430.2.7 Hospit a .3.242605 l .8 2021-08-21 2021-08-21 Telephone Pops, 1.2.840.1 [id number] 2099 [id number] Methodi 00:00:00 00:00:[address] 3.430.2.7 Hospit a .3.439579 l .8 2021-08-18 2021-08-18 Travel 1.2.840.1 1.2.695.537 7880 [id number] Methodi 00:00:00 00:00:[address] 3.430.2.7 0.2.7.3.698 Ho spita .3.827983 084.8 l .8 2021-08-10 2021-08-11 Emergency Adali, 1.2.840.1 [id number] Methodi 20:25:00 01:30:[address] Rylee 3.430.2.7 Ho spita .3.038296 l .8 2021-08-10 2021-08-10 Travel 1.2.840.1 1.2.400.462 6631 223689 Methodi 00:00:00 00:00:[address] 3.430.2.7 0.2.7.3.698 Ho spita .3.567621 084.8 l .8 2021-07-28 2021-07-28 ambulatory STLMLC STLMLC [id number] Common 00:00:00 00:00:00 [facility] 2021-07-25 2021-07-25 Telephone Stephanie, 1.2.840.1 [id number] 123 [id number] Methodi 00:00:00 00:00:[address] 3.430.2.7 Hospit a .3.267222 l .8 2021-07-24 2021-07-24 Telephone Jesus, 1.2.840.1 [id number] 2099 [id number] Methodi 00:00:00 00:00:[address] 3.430.2.7 Hospit a .3.523777 l .8 2021-07-12 2021-07-12 ambulatory STLMLC STLMLC [id number] Common 00:00:00 00:00:00 [facility] 2021-06-29 2021-06-29 Travel 1.2.840.1 1.2.808.559 4496 [id number] Methodi 00:00:00 00:00:[address] 3.430.2.7 0.2.7.3.698 Ho spita .3.440797 084.8 l .8 2021-06-28 2021-06-28 Emergency Nuszen, 1.2.840.1 [id number] 2099 [id number] Methodi 13:22:00 16:56:00 [address]26[address] 3.430.2.7 Hospit a .3.376328 l .8 2021-06-22 2021-06-22 Behavioral John, 1.2.840.1 [id number] 051 [id number] Methodi 00:00:00 00:00:00 Health Kaleb 23299.1.[address] Johnny 3.430.2.7 Hospit a .3.036856 l .8 2021-06-18 2021-06-21 [facility] Diana Bangura 1.2.840.1 10 [id number] Methodi 15:30:00 14:22:00 Encounter Jennifer Ghosh 98391.1.[address] Pierce Marshall 3.430.2.7 Hospita .3.179075 l .8 2021-06-18 2021-06-18 Travel 1.2.840.1 1.2.130.650 0827 648980 Methodi 00:00:00 00:00:[address] 3.430.2.7 0.2.7.3.698 Ho spita .3.053713 084.8 l .8 2021-06-16 2021-06-16 Orders [facility], 1.2.840.0 [id number] Methodi 00:00:00 00:00:00 Only Eusebia Maya 55086.1.[address] 3.430.2.7 Hospit a .3.575438 l .8 2021-06-08 2021-06-08 Clinical 1.2.840.1 [id number] 90043 Methodi 12:04:06 13:04:[address] 3.430.2.7 Hospit a .3.418436 l .8 2021-06-05 2021-06-05 Telephone [facility], 1.2.840.1 [id number] 2100 [id number] Methodi 00:00:00 00:00:[address] Johnny 3.430.2.7 Hospit a .3.016984 l .8 2021-05-31 2021-06-02 [facility], 1.2.840.1 [id number] [place] 00:00:00 00:00:00 Encounter HERIBERTO 36494.1.1 [address] .3.395448 .8 2021-05-31 2021-05-31 Travel 1.2.840.1 1.2.189.877 4972 [id number] Methodi 00:00:00 00:00:[address] 3.430.2.7 0.2.7.3.698 Ho spita .3.565917 084.8 l .8 2021-05-24 2021-05-27 [facility] Romero Limon 1.2.840.1 [id number] 27 [id number] Methodi 16:35:00 16:49:00 Encounter Aramis Girard 85090.1.[address] [place] 3.430.2.7 Hospita .3.877832 l .8 2021-05-24 2021-05-24 Travel 1.2.840.1 1.2.220.356 9706 [id number] Methodi 00:00:00 00:00:[address] 3.430.2.7 0.2.7.3.698 Ho spita .3.384836 084.8 l .8 2021-05-23 2021-05-23 Outpatient STLMLC STLMLC [id number] Common 00:00:00 00:00:00 [facility] 2021-05-19 2021-05-19 Outpatient STLMLC STLMLC [id number] Common 00:00:00 00:00:00 [facility] 2021-05-01 2021-05-01 Outpatient STLMLC STLMLC [id number] Common 00:00:00 00:00:00 [facility] 2021-04-26 2021-04-26 Outpatient STLMLC STLMLC [id number] Common 00:00:00 00:00:00 [facility] 2021-04-26 2021-04-26 Outpatient STLMLC STLMLC [id number] Common 00:00:00 00:00:00 [facility] 2021-04-26 2021-04-26 Outpatient STLMLC STLMLC [id number] Common 00:00:00 00:00:00 [facility] 2021-01-13 2021-01-13 Outpatient STLMLC STLMLC [id number] Common 00:00:00 00:00:00 [facility] 2020-12-13 2020-12-13 Outpatient STLMLC STLMLC [id number] Common 00:00:00 00:00:00 [facility] 2020-11-28 2020-11-28 Patient Randal, 1.2.840.1 [id number] [id number] Methodi 00:00:00 00:00:00 Outreach Bia 10179.1.[address] 3.430.2.7 Hospit a .3.659106 l .8 2020-11-25 2020-11-25 Patient Randal, 1.2.840.1 [id number] 21000 [id number] Methodi 00:00:00 00:00:00 Outreach Bia 23805.1.[address] 3.430.2.7 Hospit a .3.940723 l .8 2020-11-24 2020-11-24 Patient Randal, 1.2.840.1 [id number] Methodi 00:00:00 00:00:00 Outreach Bia 53208.1.[address] 3.430.2.7 Hospit a .3.166084 l .8 2020-11-22 2020-11-23 [facility] 1.2.840. 1 [id number] Methodi 17:29:00 16:26:00 [address]27.1.[address] 3.430.2.7 Hospit a .3.577510 l .8 2020-11-22 2020-11-22 Travel 1.2.840.1 1.2.875.109 0533 [id number] Methodi 00:00:00 00:00:[address] 3.430.2.7 0.2.7.3.698 Ho spita .3.775400 084.8 l .8 2020-11-17 2020-11-17 Outpatient STLMLC STLMLC [id number] Common 00:00:00 00:00:00 [facility] 2020-11-02 2020-11-02 [facility] Cliff Levy 1.2.840.1 [id number] Methodi 16:45:00 23:59:00 Encounter Calos Garcia 54676.1.[address] 3.430.2.7 Hospit a .3.841569 l .8 2020-11-02 2020-11-02 Lab Jose 1.2.840.1 [id number] 4664 Methodi 16:00:31 16:05:31 Calos Feng 30175.1.[address] 3.430.2.7 Hospit a .3.269810 l .8 2020-11-02 2020-11-02 Travel 1.2.840.1 1.2.375.933 2917 689470 Methodi 00:00:00 00:00:[address] 3.430.2.7 0.2.7.3.698 Ho spita .3.687454 084.8 l .8 2020-10-26 2020-10-26 [facility], 1.2.840.1 [id number] 912 [id number] Methodi 12:51:36 23:59:00 Encounter Cliff Marion 46887.1.[address] 3.430.2.7 Hospit a .3.354436 l .8 2020-10-26 2020-10-26 [facility] 1.2.840.1 [id number] Methodi 08:10:06 12:50:00 Encounter Cliff Marion 04558.1.[address] 3.430.2.7 Hospit a .3.208899 l .8 2020-10-26 2020-10-26 Travel 1.2.840.1 1.2.973.742 8956 [id number] Methodi 00:00:00 00:00:[address] 3.430.2.7 0.2.7.3.698 Ho spita .3.489390 084.8 l .8 2020-10-23 2020-10-24 [facility] 1.2.840.1 104 [id number] Methodi 17:57:00 14:46:00 Encounter Heriberto Douglas 68790.1.[address] Aramis Girard 3.430.2.7 [facility] .3.507131 l .8 2020-10-13 2020-10-13 Travel 1.2.840.1 1.2.293.907 4256 [id number] Methodi 00:00:00 00:00:[address] 3.430.2.7 0.2.7.3.698 Ho spita .3.150694 084.8 l .8 2020-10-12 2020-10-12 Transcribe Mildred 1.2.840.1 [id number] 2 [id number] Methodi 00:00:00 00:00:00 Orders Cliff Marion 56853.1.[address] 3.430.2.7 Hospit a .3.350035 l .8 2020-10-11 2020-10-11 Outpatient STLMLC STLMLC [id number] Common 00:00:00 00:00:00 [facility] 2020-10-09 2020-10-09 Emergency Roberto Carlos, 1.2.840.1 [id number] 2100 [id number] Methodi 16:28:00 19:29:[address] Gus 3.430.2.7 Hospit a .3.446930 l .8 2020-10-03 2020-10-03 Outpatient STLMLC STLMLC [id number] Common 00:00:00 00:00:00 [facility] 2020-09-19 2020-09-21 [facility] 1.2.840.1 [id number] Methodi 16:55:00 14:27:00 Encounter Heriberto Douglas 55579.1.[address] Jennifer Ghosh 3.430.2.7 Hos lis .3.237387 l .8 2020-09-15 2020-09-15 Transcribe Jose 1.2.840.1 [id number] Methodi 00:00:00 00:00:00 Sheryl Feng 17480.1.[address] 3.430.2.7 [facility] a .3.501857 l .8 2020-09-14 2020-09-14 Outpatient STLMLC STLMLC [id number] Common 00:00:00 00:00:00 [facility] 2020-07-27 2020-07-27 Outpatient STLMLC STLMLC [id number] Common 00:00:00 00:00:00 [facility] 2020-06-28 2020-06-28 Outpatient STLMLC STLMLC [id number] Common 00:00:00 00:00:00 [facility] 2020-06-20 2020-06-20 Outpatient STLMLC STLMLC [id number] Common 00:00:00 00:00:00 [facility] 2020-05-20 2020-05-20 Outpatient STLMLC STLMLC [id number] Common 00:00:00 00:00:00 [facility] 2020-04-13 2020-04-13 [facility] [id number] Common 16:02:00 16:02:00 [address] [place] [address] [facility] 2020-04-13 2020-04-13 [facility] [id number] Common 09:33:00 09:33:00 [place] [address] [facility] 2020-04-05 2020-04-05 [facility] [id number] Common 09:10:00 09:10:00 [place] [address] [facility] 2020-04-04 2020-04-04 [facility] [id number] Common 10:58:00 10:58:00 [place] [address] [facility] 2020-04-04 2020-04-04 [facility] [id number] Common 10:00:00 10:00:00 [place] [address] [facility] 2020-03-16 2020-03-16 [facility] [id number] Common 11:12:00 11:12:00 [place] [address] [facility] 2020-03-10 2020-03-10 [facility] [id number] Common 13:18:00 13:18:00 [place] [address] [facility] 2020-03-07 2020-03-07 [facility] [id number] Common 16:07:00 16:07:00 [place] [address] [facility] 2020-03-04 2020-03-04 [facility] [id number] Common 11:00:00 11:00:00 [place] [address] [facility] 2020-03-04 2020-03-04 [facility] [id number] Common 11:00:00 11:00:00 [place] [address] [facility] 2019-12-29 2019-12-29 [facility] [id number] Common 07:03:00 07:03:00 [address] [place] [address] [facility] 2019-12-22 2019-12-22 Office Daija NVKATHERINE 1.2.840.114 [id number] 14:08:03 14:56:41 Visit [facility] 350.1.13.10 Surgical 4.2.7.2.686 Specialti [id number] [address] [place] 2019-07-20 2019-07-20 [facility] [id number] Common 14:02:00 14:02:00 [address] [place] [address] [facility] 2019-07-16 2019-07-16 [facility] [id number] Common 13:15:00 13:15:00 [address] [place] [address] [facility] 2019-04-15 2019-04-15 [facility] [id number] Common 14:19:00 14:19:00 [address] [place] [address] [facility] 2019-04-09 2019-04-09 [facility] [id number] Common 14:00:00 14:00:00 [address] [place] [address] [facility] 2018-09-09 2018-09-09 [facility] [id number] Common 14:45:00 14:45:00 [address] [place] [address] [facility] 2018-04-15 2018-04-15 [facility] [id number] Common 12:02:00 12:02:00 [address] [place] [address] [facility] 2018-02-19 2018-02-19 [facility] [id number] Common 15:08:00 15:08:00 [address] [place] [place] [address] [facility] 2018-01-24 2018-01-24 [facility] [id number] Common 11:15:00 11:15:00 [address] [place] [address] [facility] Results Test Description Test Time Test Comments Results Result Comments Source SARS-CoV-2 (COVID-19) RNA [Presence] in Respiratory sp ecimen by 2021-10-28 04:55:57 GUSTAVO with probe detection Test Item Value Reference Range Interpretation Comme nts SARS-CoV-2 (COVID-19) RNA [Presence] in Respiratory specimen by Not detected GUSTAVO with probe detection (test code = 03301-2) 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 (test code = Un known 63357-9) Whether the patient has symptoms related to condition of interest U nknown (test code = 91037-3) Whether the patient was hospitalized for condition of interest Unkn own (test code = 78039-3) Whether the patient was admitted to intensive care unit (ICU) for U nknown condition of interest (test code = 04260-3) Whether patient resides in a congregate care setting (test code = U nknown 41279-7) status (test code = 85512-5) Unknown Date and time of symptom onset (test code = 61762-9) Unknown SARS-CoV-2 (COVID-19) RNA [Presence] in Respiratory specimen by GUSTAVO with probe [id number] 01:48:29 Test Item Value Reference Range Interpretation Comments SARS-CoV-2 (COVID-19) RNA Not detected [Presence] in Respiratory specimen by GUSTAVO with probe detection (test code = 96028-1) 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 employed in a Unknown healthcare setting (test code = 03610-6) Whether the patient has symptoms Unknown related to condition of interest (test code = 08580-1) Whether the patient was Unknown hospitalized for condition of interest (test code = 57176-1) Whether the patient was admitted Unknown to intensive care unit (ICU) for condition of interest (test code = 27217-7) Whether patient resides in a Unknown congregate care setting (test code = 00113-6) status (test code = Unknown 45946-3) Date and time of symptom onset Unknown (test code = 43983-5) CT, [id number] 08:50:00Unlisted Reason for Exam - Click Yes and Enter Reason Below->YesUnlisted Reason for Exam->diarrhea. abdominal pain. C dif colitis.Is this for enterography?->NoWill this procedure require oral c ontrast?->[facility] : 1960 Sex: FFINAL REPORT [...] MDReport Verified Date/Time: 09/15/2021 08:50:57 BASIC METABOLIC [id number] 07:34:36 Test Item Value Reference Range Interpretation [...] S NOT APPLICABLE FOR DIALYSIS PATIEN TS[employer] Supervisor ID - EOSpecimen moderately ictericHEPATIC FUNCTION [id number] 07:29:08 Test Item Value Reference Range Interpretation [...] Specimen slightly (test code = 347) hemolyzed [facility] Supervisor ID - EOSpecimen moderately ictericPROTHROMBIN TIME/[id number] 06:46:58 Test Item Value Reference Range Interpretation Comments PROTIME (BEAKER) 22.1 seconds 11.9-14.2 H (test code = 759) INR (BEAKER) (test 1.96 See_Comment [Automat ed message] code = 370) The system User Replay generated this result transmitted ref erence range: [...] = 2801) CBC W/PLT COUNT & AUTO [id number] 10:18:58 Test Item Value Reference Range Interpretation [...] (BEAKER) (test code = 2801) BASIC METABOLIC [id number] 08:06:00 Test Item Value Reference Range Interpretation [...] S NOT APPLICABLE FOR DIALYSIS PATIEN TS. [facility] Supervisor ID - PIAYA LSpecimen moderately ictericHEPATIC FUNCTION [id number] 08:06:00 Test Item Value Reference Range Interpretation [...] (test code = 19 U/L 6-55 347) [facility] Supervisor ID - PIAYA LSpecimen moderately ictericPROTHROMBIN TIME/[id number] 07:51:15 Test Item Value Reference Range Interpretation Comments PROTIME (BEAKER) 20.6 seconds 11.9-14.2 H (test code = 759) INR (BEAKER) (test 1.80 See_Comment [Automat ed message] code = 370) The system User Replay generated this result transmitted ref erence range: <=5.90. The reference range was not used to int erpret this result as normal/abnormal . RECOMMENDED COUMADIN/WARFARIN INR THERAPY RANGESSTANDARD DOSE: 2.0 - 3.0 Includes: PROPHYLAXIS forvenous thrombosis, systemic embolization; TREATMENT for venous thrombosis and/or pulmonary embolus.HIGH RISK: Target INR is 2.5-3.5 for patients with mechanical heart valves.HEPATIC FUNCTION [id number] 07:41:30 Test Item Value Reference Range Interpretation [...] (test code = 21 U/L 6-55 347) [facility] Supervisor ID - PIAYA LSpecimen moderately ictericBASIC METABOLIC [id number] 07:41:29 Test Item Value Reference Range Interpretation [...] S NOT APPLICABLE FOR DIALYSIS PATIEN TS. [facility] Supervisor ID - PIAYA LSpecimen moderately ictericPROTHROMBIN TIME/[id number] 07:34:58 Test Item Value Reference Range Interpretation Comments PROTIME (BEAKER) 19.3 seconds 11.9-14.2 H (test code = 759) INR (BEAKER) (test 1.66 See_Comment [Automat ed message] code = 370) The system User Replay generated this result transmitted ref erence range: [...] PERCENT (BEAKER) (test code = 2801) VITAMIN [id number] 07:00:04 Test Item Value Reference Range Interpretation Comments VITAMIN B12 (BEAKER) (test code = > pg/mL 213-816 H 774) [facility] Supervisor ID - ZAC WBASIC METABOLIC [id number] 06:43:51 Test Item Value Reference Range Interpretation [...] S NOT APPLICABLE FOR DIALYSIS PATIEN TS. [facility] Supervisor ID - ZAC WOperator ID - MARLON LSpecimen slightly ictericVITAMIN D, 80-[id number] 05:27:33 Test Item Value Reference Range Interpretation Comments VITAMIN D 25-OH (BEAKER) (test code 4.4 ng/mL 6.6-49.9 L = 2764) Effective 05/22/2017: Reference Range ChangeNew: 6.6-49.9 ng/mL Previous: 13.0-47.8 ng/mLRecommended Vitamin D Target Range: 30.0-40.0 ng/mLOperator ID - MARLON LC-REACTIVE [id number] 05:23:46 Test Item Value Reference Range Interpretation Comments C-REACTIVE PROTEIN (BEAKER) (test 1.00 mg/dL 0.00-0.50 H code = 676) [facility] Supervisor ID - ZAC [id number] 05:23:45 Test Item Value Reference Range Interpretation Comments MAGNESIUM (BEAKER) (test code = 1.6 mg/dL 1.6-2.6 627) [facility] Supervisor ID - ZAC WHEPATIC FUNCTION [id number] 05:23:45 Test Item Value Reference Range Interpretation [...] (test code = 17 U/L 6-55 347) [facility] Supervisor ID - ZAC Rosales slightly ictericPROTHROMBIN TIME/[id number] 04:53:27 Test Item Value Reference Range Interpretation Comments PROTIME (BEAKER) 22.4 seconds 11.9-14.2 H (test code = 759) INR (BEAKER) (test 2.00 See_Comment [Automat ed message] code = 370) The system User Replay generated this result transmitted ref erence range: [...] (BEAKER) (test code = 2801) Basic Metabolic [id number] 08:26:03 Test Item Value Reference Range Interpretation Comments Sodium (test code = 137 meq/L 560-713 7117-2) Potassium (test code 3.5 meq/L 3.5-5.1 = 2823-3) Chloride (test code = 109 meq/L 98-107 H 2075-0) CO2 (test code = 24 meq/L 22-29 2028-9) BUN (test code = 13 mg/dL 7-21 3094-0) Creatinine (test code 0.73 mg/dL 0.57-1.25 = 2160-0) Glucose (test code = 85 mg/dL 70-105 2345-7) Calcium (test code = 7.7 mg/dL 8.4-10.2 L 40742-3) EGFR (test code = 81 mL/min/1.73 [place] [address]-0) NOT ACCURATE CREATININE CLEARANCE IN PREDICTING GLOMERULAR FILTRATION RATE . ESTIMATED GFR I S NOT APPLICABLE FOR DIALYSIS PATIENTS. REJI (test code = REJI) [facility] Supervisor GINA Covington ID - DBSpecimen slightly icteric Lab Interpretation Abnormal (test code = 87266-5) [facility] [id number] 08:26:03 Test Item Value Reference Range Interpretation [...] S NOT APPLICABLE FOR DIALYSIS PATIEN TS. [facility] Supervisor ID - MARLON LOperator ID - DBSpecimen slightly ictericHepatic function [id number] 07:24:45 Test Item Value Reference Range Interpretation Comments Protein, Total (test 4.9 See_Comment L [Autom ated code = 2885-2) message] The system which generated this result transmitted reference range : 6.0 - 8.3 gm/dL . The reference range was not used to interpr et this result as normal/abnormal . Albumin (test code = 2.2 g/dL 3.5-5.0 L 13539-1) Total Bilirubin (test 4.0 mg/dL 0.2-1.2 H code = 1974-2) Bilirubin, Direct 1.5 mg/dL 0.1-0.5 H (test code = 1967-7) Alkaline Phosphatase 111 U/L 40-150 (test code = 6768-6) AST (test code = 53 U/L 5-34 H 1920-8) ALT (test code = 17 U/L 6-55 1742-6) REJI (test code = REJI) [facility] Supervisor ID - MARLON LSpecimen slightly icteric Lab Interpretation Abnormal (test code = 07016-7) [facility] 07:24:45 Test Item Value Reference Range Interpretation Comments Magnesium (test code = 1.7 mg/dL 1.6-2.6 56377-3) REJI (test code = REJI) [facility] Supervisor ID - MARLON L Lab Interpretation (test Normal code = 42239-1) [facility]2022-01-31 07:24:45 Test Item Value Reference Range Interpretation Comments MAGNESIUM (BEAKER) (test code = 1.7 mg/dL 1.6-2.6 627) [facility] Supervisor ID - MARLON LHEPATIC FUNCTION [id number] 07:24:45 Test Item Value Reference Range Interpretation [...] (test code = 17 U/L 6-55 347) [facility] Supervisor ID - MARLON KENTpecimen slightly ictericProthrombin time/[id number] 06:40:57 Test Item Value Reference Interpretation Comments [...] valves. Lab Interpretation Abnormal (test code = 12585-8) [facility] HospitalPROTHROMBIN TIME/[id number] 06:40:57 Test Item Value Reference Range Interpretation Comments PROTIME (BEAKER) 22.5 seconds 11.9-14.2 H (test code = 759) INR (BEAKER) (test 2.01 See_Comment [Automat ed message] code = 370) The system User Replay generated this result transmitted ref erence range: [...] See_Comment H [A utomated message] The system User Replay generated this result transmitted ref erence range: 3.5 - 10 .5 K/L. The refe rence range was not u sed to interpret this result as normal/abnor mal. RBC (test code = 789-8) 2.76 See_Comment L [Au tomated message] The system User Replay generated this result transmitted ref erence range: 3.93 - 5 .22 M/L. The refe rence range was not u sed to interpret this result as normal/abnor mal. MCHC (test code = 786-4) 31.5 See_Comment L [A utomated message] The system User Replay generated this result transmitted ref erence range: [...] L [Aut omated message] 777-3) The system User Replay generated this result transmitted ref erence range: 150 - 45 0 K/CU MM. The referen ce range was not u sed to interpret this result as normal/abnor mal. MPV (test code = 9.6 fL 9.4-12.3 45779-1) nRBC (test code = 413) 0 See_Comment [Aut omated message] The system User Replay generated this result transmitted ref erence range: [...] H [Aut omated message] 670) The system User Replay generated this result transmitted ref erence range: 1.56 - 6 .13 K/L. The refe rence range was not u sed to interpret this result as normal/abnor mal. # Lymphs (test code = 1.18 See_Comment [Auto mated message] 414) The system User Replay generated this result transmitted ref erence range: 1.18 - 3 .74 K/L. The refe rence range was not u sed to interpret this result as normal/abnor mal. # Monos (test code = 0.64 See_Comment H [Autom ated message] 415) The system User Replay generated this result transmitted ref erence range: 0.24 - 0 .36 K/L. The refe rence range was not u sed to interpret this result as normal/abnor mal. # Eos (test code = 416) 0.31 See_Comment [Au tomated message] The system User Replay generated this result transmitted ref erence range: 0.04 - 0 .36 K/L. The refe rence range was not u sed to interpret this result as normal/abnor mal. # Baso (test code = 417) 0.02 See_Comment [A utomated message] The system User Replay generated this result transmitted ref erence range: 0.01 - 0 .08 K/L. The refe rence range was not u sed to interpret this result as normal/abnor mal. Immature 1 % 0-1 Granulocytes-Relative (test code = 2801) Lab Interpretation (test Abnormal code = 45050-1) [facility] W/PLT COUNT & AUTO [id number] 06:36:06 Test Item Value Reference Range Interpretation [...] (BEAKER) (test code = 2801) BASIC METABOLIC [id number] 09:04:28 Test Item Value Reference Range Interpretation [...] S NOT APPLICABLE FOR DIALYSIS PATIEN TS. [facility] Supervisor ID - DBSpecimen moderately puwetpbZGLKWERUX8662-46-66 08:26:10 Test Item Value Reference Range Interpretation Comments MAGNESIUM (BEAKER) (test code = 1.8 mg/dL 1.6-2.6 627) [facility] Supervisor ID - DBHEPATIC FUNCTION [id number] 08:26:10 Test Item Value Reference Range Interpretation [...] (test code = 17 U/L 6-55 347) [facility] Supervisor ID - DBSpecimen moderately ictericPROTHROMBIN TIME/[id number] 07:14:13 Test Item Value Reference Range Interpretation Comments PROTIME (BEAKER) 23.1 seconds 11.9-14.2 H (test code = 759) INR (BEAKER) (test 2.08 See_Comment [Automat ed message] code = 370) The system User Replay generated this result transmitted ref erence range: [...] (BEAKER) (test code = 2801) BASIC METABOLIC [id number] 09:04:18 Test Item Value Reference Range Interpretation [...] S NOT APPLICABLE FOR DIALYSIS PATIEN TS. [facility] Supervisor ID - DBOperator ID - DBSpecimen moderately ictericHEPATIC FUNCTION [id number] 07:53:06 Test Item Value Reference Range Interpretation [...] (test code = 16 U/L 6-55 347) [facility] Supervisor ID - DBSpecimen moderately ictericManual Afatuxyjadzh2532-32-71 07:50:25 Test Item Value Reference Range Interpretation [...] Ovalocytes (test code = 1+ few 477) Wilson Cells (test code = 1+ few 474) Artifact (test code = Present 3432) Platelet Conc (test code Decreased = 3438) REJI (test code = REJI) [facility] Supervisor ID - michaela cardenasMarcial comments: Slide comments: Lab Interpretation (test Abnormal code = 07104-1) [facility](CELLAVISION MANUAL DIFF)2021-09-09 07:50:25 Test Item Value [...] CONCENTRATION Decreased (CELLAVISION)(BEAKER) (test code = 3438) [facility] Supervisor ID - michaela Cutler comments: Slide comments:CBC W/PLT COUNT & AUTO UCAPJKSTQYTS1904-18-10 07:50:24 Test Item Value Reference Range Interpretation [...] WBC 0-0 (test code = 413) PROTHROMBIN TIME/[id number] 06:28:05 Test Item Value Reference Range Interpretation [...] = No growth in 5 days 6463-4) [facility] HospitalBLOOD [id number] 14:01:01 Test Item Value Reference Range Interpretation Comments CULTURE (BEAKER) (test No growth in 5 days code = 1095) Fqzitnp7179-55-22 11:09:32 Test Item Value Reference Range Interpretation Comments Ammonia (test code = 35 See_Comment [Autom ated 70024-0) message] The system which generated this result transmit barron reference range : 18 - 72 mol/L . The reference range was not u sed to interpret th is result as normal/abnormal . REJI (test code = REJI) [facility] Supervisor ID - PIAYA L Lab Interpretation Normal (test code = 19540-1) [facility]MON[facility]22[facility] 11:09:32 Test Item Value Reference Range Interpretation Comments AMMONIA (BEAKER) (test code = 348) 35 mol/L 18-72 [facility] Supervisor ID - PIAYA LCBC W/PLT COUNT & AUTO [id number] 07:57:44 Test Item Value Reference Range Interpretation [...] CONCENTRATION Decreased (CELLAVISION)(BEAKER) (test code = 3438) [facility] Supervisor GINA Ferguson comments: Slide comments:BASIC METABOLIC [id number] 06:46:23 Test Item Value Reference Range Interpretation [...] S NOT APPLICABLE FOR DIALYSIS PATIEN TS. [facility] Supervisor ID - ZAC WSpecimen slightly jnzjlblYdzaozmllh1846-66-25 06:42:47 Test Item Value Reference Range Interpretation Comments Phosphorus (test code = 2.4 mg/dL 2.3-4.7 2777-1) REJI (test code = REJI) [facility] Supervisor ID Ajay FRANK W Lab Interpretation (test Normal code = 94596-9) [facility]PHOSPHORUS2022-[facility] 06:42:47 Test Item Value Reference Range Interpretation Comments PHOSPHORUS (BEAKER) (test code = 2.4 mg/dL 2.3-4.7 604) [facility] Supervisor ID Ajay FRANK WHEPATIC FUNCTION [id number] 06:42:47 Test Item Value Reference Range Interpretation [...] (test code = 15 U/L 6-55 347) [facility] Supervisor ID Ajay Rosales slightly ictericPROTHROMBIN TIME/[id number] 05:37:24 Test Item Value Reference Range Interpretation Comments PROTIME (BEAKER) 26.6 seconds 11.9-14.2 H (test code = 759) INR (BEAKER) (test 2.48 See_Comment [Automat ed message] code = 370) The system User Replay generated this result transmitted ref erence range: [...] CONCENTRATION Decreased (CELLAVISION)(BEAKER) (test code = 3438) [facility] Supervisor ID - Cindy Gibson comments: Slide comments:CBC W/PLT COUNT & AUTO [id number] 09:40:43 Test Item Value Reference Range Interpretation [...] 0-0 (test code = 413) BASIC METABOLIC [id number] 07:22:45 Test Item Value Reference Range Interpretation [...] S NOT APPLICABLE FOR DIALYSIS PATIEN TS. [facility] Supervisor ID - MARLON LSpecimen slightly ycyjsluKYYCLBBMUN0754-48-54 07:16:27 Test Item Value Reference Range Interpretation Comments PHOSPHORUS (BEAKER) (test code = 2.2 mg/dL 2.3-4.7 L 604) [facility] Supervisor ID - ELODIARADHA LHEPATIC FUNCTION [id number] 07:16:27 Test Item Value Reference Range Interpretation [...] (test code = 17 U/L 6-55 347) [facility] Supervisor ID - PIAYA LSpecimen slightly ictericBLOOD [id number] 07:00:33 Test Item Value Reference Range Interpretation Comments CULTURE (BEAKER) (test No growth in 5 days code = 1095) PROTHROMBIN TIME/[id number] 06:15:38 Test Item Value Reference Range Interpretation Comments PROTIME (BEAKER) 25.1 seconds 11.9-14.2 H (test code = 759) INR (BEAKER) (test 2.31 See_Comment [Automat ed message] code = 370) The system User Replay generated this result transmitted ref erence range: <=5.90. The reference range was not used to int erpret this result as normal/abnormal . RECOMMENDED COUMADIN/WARFARIN INR THERAPY RANGESSTANDARD DOSE: 2.0 - 3.0 Includes: PROPHYLAXIS forvenous thrombosis, systemic embolization; TREATMENT for venous thrombosis and/or pulmonary embolus.HIGH RISK: Target INR is 2.5-3.5 for patients with mechanical heart valves.Ova and Parasite Lyefweuoeer2934-34-34 08:26:13 Test Item Value Reference Range Interpretation Comments O&P Direct Smear (test No ova or parasites No ova or code = 93458-1) seen parasites seen REJI (test code = REJI) See scanned report Lab Interpretation (test Normal code = 09201-6) [facility]2022-[facility] 07:29:32 Test Item Value Reference Range Interpretation Comments PHOSPHORUS (BEAKER) (test code = 1.5 mg/dL 2.3-4.7 LL 604) [facility] Supervisor ID - ZAC WBASIC METABOLIC [id number] 07:09:27 Test Item Value Reference Range Interpretation [...] S NOT APPLICABLE FOR DIALYSIS PATIEN TS. [facility] Supervisor ID - ZAC Rosales slightly ictericPROTHROMBIN TIME/[id number] 06:57:19 Test Item Value Reference Range Interpretation Comments PROTIME (BEAKER) 23.2 seconds 11.9-14.2 H (test code = 759) INR (BEAKER) (test 2.09 See_Comment [Automat ed message] code = 370) The system User Replay generated this result transmitted ref erence range: [...] CONCENTRATION Decreased (CELLAVISION)(BEAKER) (test code = 3438) [facility] Supervisor ID - nabil Julian comments: Slide comments:[id number] 15:08:54 Test Item Value Reference Range Interpretation Comments PHOSPHORUS (BEAKER) (test code = 1.2 mg/dL 2.3-4.7 LL 604) [facility] Supervisor ID - BSBASIC METABOLIC [id number] 15:04:30 Test Item Value Reference Range Interpretation [...] S NOT APPLICABLE FOR DIALYSIS PATIEN TS. [facility] Supervisor ID - BSSpecimen slightly ictericHEPATIC FUNCTION [id number] 15:02:35 Test Item Value Reference Range Interpretation [...] (test code = 17 U/L 6-55 347) [facility] Supervisor ID - BSSpecimen slightly ictericPROTHROMBIN TIME/[id number] 14:50:10 Test Item Value Reference Range Interpretation Comments PROTIME (BEAKER) 24.9 seconds 11.9-14.2 H (test code = 759) INR (BEAKER) (test 2.28 See_Comment [Automat ed message] code = 370) The system User Replay generated this result transmitted ref erence range: [...] (test code = 413) Clostridium difficile GDH [id number] 21:23:26 Test Item Value Reference Range Interpretation Comments C. Difficle Toxin Positive Negative A (test code = 5872881010) C. Difficile GDH Positive Negative A Confirms Antigen (test code = Clostri dium 0508067551) difficile-assoc ia barron infection.First line therapy - [...] performance was done by the [facility] Microbiology Lab prior to clinical use. Lab Interpretation Abnormal (test code = 41238-6) [facility] DIFFICILE [facility]DH [id number] 21:23:26 Test Item Value Reference Range Interpretation Comments CDT TOXIN (test code Positive Negative A = 4256386033) CDT GDH ANTIGEN Positive Negative A Confirms Maria Esther stridium (test code = difficile-assoc iated 9539517944) infection.First line therapy - oral Vancomycin. Co ntinue enteric isolati on until 72 hours after treatment is discontinued and symptoms have r esolved. Testing performed by [employer] Rapid Cassette Assay. For GDH, published sensitivity of the assay is 98.7% compared to cytotoxicity testing. For Toxin AB, published sensitivity is 87.8% and specificity 99.4% compared to cytotoxicity testing.Verification of kit performance was done by the [facility] Microbiology Lab prior to clinical use.CT, CHEST, WITH [id number] 10:14:00Unlisted Reason for Exam - Click Yes and Enter Reason Below->No [facility] 1960 Sex: FFINAL REPORT [...] spleen. Small volume ascites. Signed: Quentin Sims [facility] Verified Date/Time: 09/04/2021 10:14:08 CT, ABDOMEN 2021-09-04 10:14:00Unlisted Reason for Exam - Click Yes and Enter Reason Below- >No Is this for enterography?->YesWill this procedure require oral contrast?->Yes[facility] [place] : 1960 Sex: FFINAL REPORT [...] spleen. Small volume ascites. Signed: Quentin Sims [facility] Verified Date/Time: 09/04/2021 10:14:08 (CELLAVISION MANUAL DIFF)2021-09-04 [...] CONCENTRATION Decreased (CELLAVISION)(BEAKER) (test code = 3438) [facility] Supervisor ID - michaela Cutler comments: Slide comments:CBC W/PLT COUNT & AUTO [id number] 07:25:32 Test Item Value Reference Range Interpretation [...] /100 WBC 0-0 (test code = 413) [id number] 06:26:19 Test Item Value Reference Range Interpretation Comments PHOSPHORUS (BEAKER) (test code = 1.5 mg/dL 2.3-4.7 LL 604) [facility] Supervisor GINA FRANK WComprehensive metabolic [id number] 06:18:30 Test Item Value Reference Range Interpretation Comments Protein, Total (test 4.7 See_Comment L [Autom ated code = 2885-2) message] The system which generated this result transmitted reference range : 6.0 - 8.3 gm/dL . The reference range was not used to interpr et this result as normal/abnormal . Albumin (test code = 2.7 g/dL 3.5-5.0 L 03571-2) Alkaline Phosphatase 85 U/L 40-150 (test code [...] (test code = 7.3 mg/dL 8.4-10.2 L 97335-5) AST (test code = 28 U/L 5-34 1920-8) ALT (test code = 14 U/L 6-55 1742-6) EGFR (test code = 53 mL/min/1.73 [place] [address]-5) NOT ACCURATE CREATININE CLEARANCE IN PREDICTING GLOMERULAR FILTRATION RATE . ESTIMATED GFR I S NOT APPLICABLE FOR DIALYSIS PATIENTS. REJI (test code = REJI) [facility] Supervisor ID - ZAC WOODSpecnicole slightly icteric Lab Interpretation Abnormal (test code = 49513-4) [facility]COMPREHENSIVE METABOLIC [id number] 06:18:30 Test Item Value Reference Range Interpretation [...] S NOT APPLICABLE FOR DIALYSIS PATIEN TS. [facility] Supervisor ID - ZAC WSpecimen slightly wzjckkmMJFYLADCH8647-66-40 06:13:05 Test Item Value Reference Range Interpretation Comments MAGNESIUM (BEAKER) (test code = 2.3 mg/dL 1.6-2.6 627) [facility] Supervisor ID - ZAC W(CELLAVISION MANUAL DIFF)2021-09-03 14:33:56 [...] CONCENTRATION Decreased (CELLAVISION)(BEAKER) (test code = 3438) [facility] Supervisor ID - Claudine Rios comments: Slide comments:CBC W/PLT COUNT & AUTO [id number] 14:33:55 Test Item Value Reference Range Interpretation [...] (test code = 413) Hepatitis B surface zntkdtmw1689-88-53 13:30:11 Test Item Value Reference Range Interpretation Comments Hep B S Ab (test code <8.0 See_Comment [Auto mated = 51690-8) message] The system which generated this result transmit barron reference range : <8.0 mIU/mL. e reference range was not used to interpret this result as normal/abnormal . REJI (test code = REJI) [facility] Supervisor ID - MARLON L Lab Interpretation Normal (test code = 66283-9) [facility]HEPAT[facility]IS [facility] SURFACE [id number] 13:30:11 Test Item Value Reference Range Interpretation Comments HEPATITIS B SURFACE ANTIBODY < mIU/mL <8.0 (BEAKER) (test code = 647) [facility] Supervisor ID - MARLON LHepatitis A antibody, [id number] 13:23:53 Test Item Value Reference Range Interpretation Comments Hep A IgG (test code = Nonreactive Nonreactive 93965-3) REJI (test code = REJI) [facility] Supervisor ID - ELODIAAYA L Lab Interpretation (test Normal code = 11615-3) [facility]HER[facility]ALT[facility] A ANTIBODY, [id number] 13:23:53 Test Item Value Reference Range Interpretation Comments HEPATITIS A IGG ANTIBODY (BEAKER) Nonreactive Nonreactive (test code = 2797) [facility] Supervisor ID Ajay MASON LHepatitis B core antibody, [id number] 13:23:52 Test Item Value Reference Range Interpretation Comments Hep B Core Total Ab Nonreactive Nonreactive (test code = 98148-7) REJI (test code = REJI) [facility] Supervisor ID Ajay Zapien Lab Interpretation (test Normal code = 83218-4) [facility] C mvymcfhg7982-14-19 13:23:52 Test Item Value Reference Range Interpretation Comments Hepatitis C Ab (test Nonreactive Nonreactive code = 97161-3) REJI (test code = REJI) [facility] Supervisor ID Ajay Zapien Lab Interpretation (test Normal code = 84289-3) [facility] C [id number] 13:23:52 Test Item Value Reference Range Interpretation Comments HEPATITIS C ANTIBODY (BEAKER) Nonreactive Nonreactive (test code = 367) [facility] Supervisor ID - MARLON LHEPATITIS B CORE ANTIBODY, [id number] 13:23:52 Test Item Value Reference Range Interpretation Comments HEPATITIS B CORE TOTAL ANTIBODY Nonreactive Nonreactive (BEAKER) (test code = 497) [facility] Supervisor ID Ajay MASON LHepatitis B surface qyirvek8680-27-21 13:23:51 Test Item Value Reference Range Interpretation Comments HBsAg Screen (test code Nonreactive Nonreactive = 5195-3) REJI (test code = REJI) Specimen is considered negative for HBsAg. Lab Interpretation (test Normal code = 00562-5) [facility] SURFACE [id number] 13:23:51 Test Item Value Reference Range Interpretation [...] S NOT APPLICABLE FOR DIALYSIS PATIEN TS. [facility] Supervisor ID - MARLON LSpecimen slightly edcizqpYUGQLTBTR5438-77-29 12:58:51 Test Item Value Reference Range Interpretation Comments MAGNESIUM (BEAKER) (test code = 2.1 mg/dL 1.6-2.6 627) [facility] [facility] Supervisor ID - PIRADHA ZMSZDRIHPTZ9427-08-28 12:58:51 Test Item Value Reference Range Interpretation Comments PHOSPHORUS (BEAKER) (test code = 2.3 mg/dL 2.3-4.7 604) [facility] [facility] Supervisor ID - MARLON LPROTHROMBIN TIME/[id number] 12:56:09 Test Item Value Reference Range Interpretation Comments PROTIME (BEAKER) 23.4 seconds 11.9-14.2 H (test code = 759) INR (BEAKER) (test 2.10 See_Comment [Automat ed message] code = 370) The system User Replay generated this result transmitted ref erence range: <=5.90. The reference range was not used to int erpret this result as normal/abnormal . RECOMMENDED COUMADIN/WARFARIN INR THERAPY RANGESSTANDARD DOSE: 2.0 - 3.0 Includes: PROPHYLAXIS forvenous thrombosis, systemic embolization; TREATMENT for venous thrombosis and/or pulmonary embolus.HIGH RISK: Target INR is 2.5-3.5 for patients with mechanical heart valves.Urine hxpshsa6741-16-09 12:15:06 Test Item Value Reference Range Interpretation Comments Result (test code = 6463-4) No growth [facility] -[facility] [id number] 12:43:22 Test Item Value Reference Range Interpretation Comments CAMPYLOBACTER (PCR) Not detected Not detected (test code = 29700-0) PLESIOMONAS SHIGELLOIDES Not detected Not detected (PCR) (test code = 44214-3) SALMONELLA (PCR) (test Not detected Not detected code = 49879-8) YERSINIA ENTEROCOLITICA Not detected Not detected (PCR) (test code = 21111-0) VIBRIO CHOLERAE (PCR) Not detected Not detected (test code = 47717-9) ENTEROAGGREGATIVE E. Not detected Not detected COLI (EAEC) BY PCR (test code = 90302-5) ENTEROPATHOGENIC E. COLI Not detected Not detected (EPEC) BY PCR (test code = 12824-0) ENTEROTOXIGENIC E. COLI Not detected Not detected (ETEC) LT/ST BY PCR (test code = 75111-3) SHIGA-LIKE Not detected Not detected TOXIN-PRODUCING E. COLI (STEC) STX1/STX2 (test code = 00915-7) E. COLI O157 (PCR) (test code = 66596-3) SHIGELLA/ENTEROINVASIVE Not detected Not detected E. COLI (EIEC) BY PCR (test code = 11756-9) CRYPTOSPORIDIUM (PCR) Not detected Not detected (test code = 35116-1) CYCLOSPORA CAYETANENSIS Not detected Not detected (PCR) (test code = 20060-3) ENTAMOEBA HISTOLYTICA Not detected Not detected (PCR) (test code = 59637-1) GIARDIA LAMBLIA (PCR) Not detected Not detected (test code = 70570-3) ADENOVIRUS F 40/41 (PCR) Not detected Not detected (test code = 00797-1) ASTROVIRUS (PCR) (test Not detected Not detected code = 13359-5) NOROVIRUS GI/GII (PCR) Not detected Not detected (test code = 24767-4) ROTAVIRUS A (PCR) (test Not detected Not detected code = 77286-5) SAPOVIRUS (I, II, IV, V) Not detected Not detected BY PCR (test code = 12174-9) VIBRIO Not detected Not detected (PARAHAEMOLYTICUS, VULNIFICUS) (test code = 74789-9) REJI (test code = REJI) Other viruses, parasites and bacteria not targeted by this PCR panel cannot be excluded; therefore clinical correlation and follow up of serology, culture results, and other molecular studies is required. The results are not intended to be used as the sole means for clinical diagnosis or patient management decisions. This sample was tested at the [facility] Molecular Diagnostics Laboratory using the [employer] Gastrointestinal Panel. It is FDA cleared and has been verified and approved by the [facility] Molecular Diagnostics Laboratory for clinical use. This laboratory is CLIA-certified and [employer] (CAP)-accredited to perform high complexity testing. [facility] BY [id number] 12:43:22 Test Item Value Reference Range Interpretation Comments CAMPYLOBACTER (PCR) (test code = Not detected Not detected 20160214) PLESIOMONAS SHIGELLOIDES (PCR) Not detected Not detected (test code = 20160218) SALMONELLA (PCR) (test code = Not detected Not detected ) YERSINIA ENTEROCOLITICA (PCR) Not detected Not detected (test code = 5981736) VIBRIO CHOLERAE (PCR) (test code Not detected Not detected = 20160313) ENTEROAGGREGATIVE E. COLI (EAEC) Not detected Not detected BY PCR (test code = 4442533) ENTEROPATHOGENIC E. COLI (EPEC) Not detected Not detected BY PCR (test code = 0451304) ENTEROTOXIGENIC E. COLI (ETEC) Not detected Not detected LT/ST BY PCR (test code = 5239131) SHIGA-LIKE TOXIN-PRODUCING E. Not detected Not detected COLI (STEC) STX1/STX2 (test code = 20160317) E. COLI O157 (PCR) (test code = 6835621) SHIGELLA/ENTEROINVASIVE E. COLI Not detected Not detected (EIEC) BY PCR (test code = 20160319) CRYPTOSPORIDIUM (PCR) (test code Not detected Not detected = 20160320) CYCLOSPORA CAYETANENSIS (PCR) Not detected Not detected (test code = 0596963) ENTAMOEBA HISTOLYTICA (PCR) Not detected Not detected (test code = 20160412) GIARDIA LAMBLIA (PCR) (test code Not detected Not detected = 20160413) ADENOVIRUS F 40/41 (PCR) (test Not detected Not detected code = 7539186) ASTROVIRUS (PCR) (test code = Not detected Not detected 20160415) NOROVIRUS GI/GII (PCR) (test Not detected Not detected code = 20160416) ROTAVIRUS A (PCR) (test code = Not detected Not detected 20160417) SAPOVIRUS (I, II, IV, V) BY PCR Not detected Not detected (test code = 20160418) VIBRIO (PARAHAEMOLYTICUS, Not detected Not detected VULNIFICUS) (test code = 5038328) Other viruses, parasites and bacteria not targeted by this PCR panel cannot be excluded; therefore clinical correlation and follow up of serology, culture results, and other molecular studies is required. The results are not intended to be used as the sole means for clinical diagnosis or patient management decisions. This sample was tested at the [facility] Molecular Diagnostics Laboratory using the [employer] Gastrointestinal Panel. It is FDA cleared and has been verified and approved by the [facility] Molecular Diagnostics Laboratory for clinical [...] CONCENTRATION Decreased (CELLAVISION)(BEAKER) (test code = 3438) [facility] [facility] Supervisor ID - Ishanperla comments: Slide comments:CBC W/PLT COUNT & AUTO [id number] 08:49:57 Test Item Value Reference Range Interpretation [...] (test code = 413) Vitamin B12 and Hyckng9740-07-66 07:20:11 Test Item Value Reference Range Interpretation Comments Vitamin B12 (test 1116 pg/mL 213-816 H code = 2132-9) Folate (test code = 3.50 ng/mL See_Comment L [Automa barron 2284-8) message] The system which generated this result transmit barron reference range : >=7.00. The reference range was not used to interpret this result as normal/abnormal . REJI (test code = REJI) [facility] [facility] Supervisor ID - SHAQUILLE M Lab Interpretation Abnormal (test code = 61116-8) [facility]IT[facility]IN B12 AND [id number] 07:20:11 Test Item Value Reference Range Interpretation Comments VITAMIN B12 (BEAKER) 1116 pg/mL 213-816 H (test code = 774) FOLATE (BEAKER) 3.50 ng/mL See_Comment L [Automated message] (test code = 362) The system which generated this result transmitted ref erence range: >=7.00. The reference range was not used to interpr et this result as normal/abnormal . [facility] [facility] Supervisor ID - SHAQUILLE MCOMPREHENSIVE METABOLIC [id number] 06:57:06 Test Item Value Reference Range Interpretation [...] S NOT APPLICABLE FOR DIALYSIS PATIEN TS. [facility] [facility] Supervisor GINA CORBIN MSpecimen slightly ictericC-Reactive Kmzfxcb8011-15-27 06:55:26 Test Item Value Reference Range Interpretation Comments CRP (test code = 676) 4.64 mg/dL 0.00-0.50 H REJI (test code = REJI) [facility] [facility] Supervisor GINA CORBIN M Lab Interpretation (test Abnormal code = 33887-0) [facility]PHOSPHORUS2022-[facility]-22 06:55:26 Test Item Value Reference Range Interpretation Comments PHOSPHORUS (BEAKER) (test code = 1.8 mg/dL 2.3-4.7 L 604) [facility] [facility] Supervisor GINA CORBIN MC-REACTIVE [id number] 06:55:26 Test Item Value Reference Range Interpretation Comments C-REACTIVE PROTEIN (BEAKER) (test 4.64 mg/dL 0.00-0.50 H code = 676) [facility] [facility] Supervisor GINA - SHAQUILLE [id number] 06:55:25 Test Item Value Reference Range Interpretation Comments MAGNESIUM (BEAKER) (test code = 2.3 mg/dL 1.6-2.6 627) [facility] [facility] Supervisor GINA CORBIN Corina, TIBC, % sat. (without ferritin)2021-09-02 06:44:00 Test Item Value Reference Range Interpretation Comments Iron (test code = 2498-4) 28.0 ug/dL 40.0-160.0 L TIBC (test code = 2500-7) 243 ug/dL 250-450 L Iron % Saturation (test 12 % 20-55 L code = 2502-3) REJI (test code = REJI) [facility] [facility] Supervisor ID - SHAQUILLE Reynolds Lab Interpretation (test Abnormal code = 20983-1) [facility] HospitalIRON, TIBC, % SAT. (WITHOUT FERRITIN)2021-09-02 06:44:00 Test Item Value Reference Range Interpretation Comments IRON (BEAKER) (test code = 547) 28.0 ug/dL 40.0-160.0 L TOTAL IRON BINDING CAPACITY 243 ug/dL 250-450 L (BEAKER) (test code = 769) IRON % SATURATION (2) (BEAKER) 12 % 20-55 L (test code = 2590) [facility] [facility] Supervisor ID - SHAQUILLE MCT, BRAIN, WITHOUT [id number] 03:54:00Unlisted Reason for Exam - Click Yes and Enter Reason Below->No [facility] 1960 Sex: FFINAL REPORT [...] MDReport Verified Date/Time: 09/02/2021 03:54:37 U/S, ABDOMINAL, [id number] 03:38:00Abdomen limited area? Add comment if clarification is needed.->Right upper quadrantReason for exam:->evaluate biliary tree/liver [facility] [place] : 1960 Sex: FFINAL REPORT [...] 09/02/2021 03:38:29 Urinalysis w/Microscopic + Reflex to [id number] 02:29:12 Test Item Value Reference Range Interpretation Comments Color, UA (test code Brown = 5778-6) Clarity, UA (test Hazy code = 5767-9) Specific [place], UA 1.029 1.001-1.035 (test code = 5811-5) pH, UA (test code = 6.0 5.0-8.0 5803-2) Protein, UA (test 30 mg/dL Negative A code = 70388-6) Glucose, UA (test Negative Negative code = 365) Ketones, UA (test Negative Negative code = 2514-8) Bilirubin, UA (test Negative Negative code = 97759-4) Blood, UA (test code Small Negative A = 89083-0) Nitrite, UA (test Negative Negative code = 5802-4) Leukocytes, UA (test Moderate Negative A code = 5799-2) Urobilinogen, UA 0.2 mg/dL 0.2-1.0 (test code = 95364-3) RBC, UA (test code = 18 See_Comment [Autom ated 26674-5) message] The system which generated this result [...] . Bacteria, UA (test Rare code = 39842-0) Mucus (test code = Moderate 8247-9) Squam Epithel, UA 2 See_Comment [Automate d (test code = 84087-5) messag e] The system which generated this result transmit barron reference range : /HPF. The reference range was not used to interpret this result as normal/abnormal . Hyaline Casts, UA 3 See_Comment [Automate d (test code = 83489-1) messag e] The system which generated this result transmit barron reference range : /LPF. The reference range was not used to interpret this result as normal/abnormal . Crystals, Urine (test None Seen code = 29546-9) Amorphous Crystals Rare (test code = 31288-0) Specimen Source (test code = 2795) REJI (test code = REJI) [facility] [facility] Supervisor ID - [auto][facility] [facility] Supervisor ID - tech Lab Interpretation Abnormal (test code = 20142-5) [facility]UR[facility]YSIS W/ REFLEX URINE [id number] 02:29:12 Test Item Value Reference Range Interpretation [...] = 1584) SOURCE(BEAKER) (test code = 2795) [facility] Supervisor ID - [auto][facility] [facility] Supervisor ID - techRAD, CHEST, 1 VIEW, NON [id number] 01:45:00Reason for exam:->leukocytosis, unable to provide historyShould this be performed at the bedside?->Yes [facility] : 1960 Sex: [...] 09/02/2021 01:45:23 CBC W/PLT COUNT & AUTO [id number] 00:20:23 Test Item Value Reference Range Interpretation [...] CONCENTRATION Decreased (CELLAVISION)(BEAKER) (test code = 3438) [facility] [facility] Supervisor ID - Curtis Grullon comments: Slide comments:PT/yWAX7184-76-28 23:44:49 Test Item Value Reference Interpretation Comments Range Protime (test code = 22.8 See_Comment H [Autom ated 5902-2) message] The system which generated this result transmitted reference range : 11.9 - 14.2 seconds. The reference range was not used to interpret this result as normal/abnormal . INR (test code = 2.04 See_Comment [Automated 8691-6) message] The system which generated this result transmitted reference range : <=5.90. The reference range was not used to interpret this result as normal/abnormal . PTT (test code = 35.2 See_Comment [Automated 40724-5) message] The system which generated this result [...] valves. Lab Interpretation Abnormal (test code = 87889-5) [facility] HospitalPT/[id number] 23:44:49 Test Item Value Reference Range Interpretation [...] for patients with mechanical heart valves.BASIC METABOLIC [id number] 23:31:12 Test Item Value Reference Range Interpretation [...] S NOT APPLICABLE FOR DIALYSIS PATIEN TS. [facility] [facility] Supervisor ID - DBSpecimen slightly wovuxsmBVKDAHIII9592-61-23 23:19:46 Test Item Value Reference Range Interpretation Comments MAGNESIUM (BEAKER) (test code = 1.8 mg/dL 1.6-2.6 627) [facility] [facility] Supervisor ID - JBRABMASNLDQ1419-89-99 23:19:46 Test Item Value Reference Range Interpretation Comments PHOSPHORUS (BEAKER) (test code = 1.9 mg/dL 2.3-4.7 L 604) [facility] Supervisor ID - DBHEPATIC FUNCTION PWPNK1854-45-60 23:19:46 Test Item Value Reference Range Interpretation [...] (test code = 14 U/L 6-55 347) [facility] Supervisor ID - DBSpecimen slightly ictericLactic acid, htqray7155-37-87 23:13:03 Test Item Value Reference Range Interpretation Comments Lactate, Venous (test 2.88 mmol/L 0.50-2.20 H code = 2872) REJI (test code = REJI) [facility] Supervisor ID - DBSpecimen slightly icteric Lab Interpretation (test Abnormal code = 67490-3) [facility] HospitalLACTIC ACID, [id number] 23:13:03 Test Item Value Reference Range Interpretation Comments LACTATE BLOOD VENOUS (2) (AKER) 2.88 mmol/L 0.50-2.20 H (test code = 2872) [facility] Supervisor ID - DBSpecimen slightly ictericPOC-Glucose bbptm0425-98-48 22:47:30 Test Item Value Reference Range Interpretation Comments POC-Glucose Meter (test 106 mg/dL 70-110 : TE STED AT [facility] code = 1538) [address] [facility], [address]: [facility] Supervisor/Techni sowmya ID = [id number] for ULLATTIL, TAYA K Lab Interpretation (test Normal code = 93023-3) [facility] HospitalPOCT-GLUCOSE [id number] 22:47:30 Test Item Value Reference Range Interpretation Comments POC-GLUCOSE METER 106 mg/dL 70-110 : TESTED A T [facility] [address] ([facility]) (test code = [facility] R [facility], 1538) [address]: [facility] Supervisor/Techni sowmya ID = [id number] for UL LATTIL, WALE C1Q class 1 & 2 velgmkos8830-85-70 17:38:21 Test Item Value Reference Range Interpretation Comments Interpretation (test code ADDITIONAL ANTIBODY = 1863940) INFORMATION:DQ7 = DQB1*03:01; DQA1*05:03DQ7 = DQB1*03:19; DQA1*05:05DQ7 = DQB1*03:01; DQA1*06:01DQ9 = DQB1*03:03; DQA1*02:01DQ9 = DQB1*03:03; DQA1*03:02DQ8 = DQB1*03:02; DQA1*03:01DQ8 = DQB1*03:02; DQA1*03:02 Case number (test code = [id number]) C1Q class 1 & 2 antibody See link below for (test code = 9734872) PDF Lab Report [facility] Hospital[facility]pi[facility], diffusion, lung volumes, [facility]/[id number] 19:27:26 Test Item Value Reference Range Interpretation [...] Predicted (test code = 67.9 % 5368) [facility] [id number] 13:53:30 Test Item Value Reference Range Interpretation Comments POC glucose (test code = 124 mg/dL 65-99 H Ope rator Name: [id number]) Clint Bustamante RDevice ID: [id number] able : [facility] Notified inpatient auditor Interpretation (test Abnormal code = 75820-6) [facility] antigen xseyx4501-58-03 11:33:46 Test Item Value Reference Range Interpretation Comments SAB interpretation (test Additional Antibody code = 5950) Information:DQ2=DQB1 *02:01/DQA1*04:01, DQB1*02:01/DQA1*05:0 6PO0=KJP1*04:02/DQA1 *04:19SS5=WXQ5*03:01 /DPA1*01:03, DPB1*03:01/DPA1*02:0 6UI3=MSR5*04:02/DPA1 *01:13UB01=KCA9*28:0 1/DPA1*01:03 SAB serum ID (test code = [id number] 5866) SAB serum collection D&T 08/23/2021 05:49 AM (test code = 5867) SAB class I antibody A11,A74,A32,A3,A31,A assignment (test code = 30,A36,A1,A29,A66,A8 5870) 0,A26,A25,A43,A34,A3 3,B82 SAB cPRA class I (test code = 5868) SAB class II antibody DR18,DR17,DR13,DR14, assignment (test code = DR52,DR11,DR8,DQ7,DR 5871) 12,DQ9,DR9,DR7,DQ8,D Q2,DR4,DQ4,DP2,DP14, DP4,DP9,DP10,DP18,DP 20,DP17,DP3,DP28 SAB cPRA class II (test code = 5869) Case number (test code = [id number]) Single antigen beads See link below for (test code = 4604) PDF [facility] Report [facility], [facility], [id number] 20:20:55 Test Item Value Reference Range Interpretation Comments Collection start date, urine (test 08/23/21 code = 31578-5) Collection start time, urine (test 8:40 code = 81383-4) Collection stop date, urine (test 08/24/21 code = 92936-2) Collection stop time, urine (test 8:40 code = 53020-4) Hours of collection (test code = 94797-8) Total volume, urine (test code = 800 mL 18933-6) Urine protein concentration (test 7 mg/dL code = 08736-0) Urine protein excretion (test code = mg/vol 2448) [facility] HospitalCreatinine level, urine, [id number] 20:20:52 Test Item Value Reference Range Interpretation Comments Collection start date, urine (test 08/23/21 code = 97542-7) Collection start time, urine (test 8:40 code = 19220-2) Collection stop date, urine (test 08/24/21 code = 25843-9) Collection stop time, urine (test 8:40 code = 98075-1) Hours of collection (test code = 31591-7) Total volume, urine (test code = 800 mL 10064-4) Urine creatinine concentration 114 mg/dL (test code = 13374-0) Urine creatinine excretion (test mg/vol code = 16754-1) [place] [address] cxal8697-74-93 15:33:38 Test Item Value Reference Range Interpretation Comments Ventricular rate (test code = 253) Atrial rate (test code = 255) MS interval (test code = 266) QRSD interval [...] out Inferior infarct , age undetermined-Abnormal [facility] wyjvbkinyq8855-72-11 14:27:40 Test Item Value Reference Range Interpretation Comments HLA transplant evaluation See link below for (test code = 01436-2) PDF Lab Report Case number (test code = [id number]) [facility] ED Preliminary Interpretation - Not an [id number] 02:54:33 Test Item Value Reference Range Interpretation Comments REJI (test code = REJI) Orlando Balderrama MD 08/17/2021 10:33 [facility] ED Preliminary Interpretation - Not an OrderPerformed by: Orlando Balderrama MDAuthorized by: Orlando Balderrama MD ECG reviewed by ED Physician in the absence of a fire alarm mechanic: yes Interpretation: Interpretation: abnormal Rate: ECG rate: 80 ECG rate assessment: normal Rhythm: Rhythm: sinus rhythm QRS: QRS axis: Normal QRS intervals: NormalST segments: ST segments: NormalOther findings: Other findings: prolonged qTc interval Lab Interpretation Abnormal (test code = 43299-9) [facility]
[2021-12-27 17:29] LABS: Absolute Lymphocytes (CBC) 0.2 K/uL (0.7-4.9); Hematocrit 35.1 % (36.0-45.0); Lymphocytes % 3.1 % (15.3-44.8); MPV 8.6 fL (7.6-11.3); RBC Red Blood Cell Count 4.01 M/uL (3.86-4.86)
[2021-12-27 17:39] LABS: Albumin 2.8 g/dL (3.4-5.0); Bilirubin Total 3.9 mg/dL (0.2-1.0); Potassium 3.5 mmol/L (3.5-5.1); Protein, Total 6.4 g/dL (6.4-8.2)
[2021-12-27] MEDS ORDERED: ONDANSETRON 4 MG/2 ML VIAL ONE (18:04)
[2021-12-27] MEDS ORDERED: FAMOTIDINE 20 MG/2 ML VIAL IV ONE (18:05)
[2021-12-27] MEDS ORDERED: NA CHLORIDE 0.9% 1,000 ML ONE ×2 (18:05→22:51)
--- NOTE | 2021-12-27 18:05 | RAD REPORT ---
EXAM DESCRIPTION: CTAbdomen Pelvis Wo Contrast - 12/27/2021 5:51 pm CLINICAL HISTORY: Abdominal pain, acute, nonlocalized COMPARISON: Abdomen Pelvis Wo Contrast dated 12/04/2021; Abdomen Pelvis Wo Contrast dated 10/07/19; Abdomen Pelvis Wo Contrast dated 05/18/2021; Abdomen Pelvis Wo Contrast dated 11/01/2020 TECHNIQUE: CT of the abdomen and pelvis was performed. All CT scans are performed using dose optimization technique as appropriate and may include automated exposure control or mA/KV adjustment according to patient size. FINDINGS: Lower chest: No acute abnormality. Liver: Tips shunt. Cirrhosis. Biliary: No biliary ductal dilatation. Stomach: No significant focal abnormality. Duodenum: No significant focal abnormality. Pancreas: No significant abnormality. Spleen: Splenomegaly Adrenal: No suspicious lesions. Kidney/ureter: No hydronephrosis. No renal calculi. Retroperitoneum: No retroperitoneal adenopathy. Vascular: No aneurysm. Bowel: Long segment bowel wall thickening involving the full length of the colon. Prior appendectomy. . Peritoneum: No ascites or free air. Prior ventral hernia repair. Bladder: Grossly unremarkable. Reproductive: No adnexal masses. Bones: No acute fracture. Other: n/a IMPRESSION: Diffuse colonic wall thickening and stranding concerning for colitis. Similar findings w ere present on the CT from 12/02/2021.
--- NOTE | 2021-12-27 18:25 | EDPHYS ---
Physician Documentation [facility] Name: Bella Barron Age: 61 yrs Sex: Female : 1960 Arrival Date: 12/27/2021 Time: 16:40 Bed 13 Private MD: ED Physician Azam Farrell HPI: 12/27 16:42 This 61 yrs old Female presents to ER via Unassigned with complaints of Abdominal Pain. ms3 16:42 The patient presents with abdominal pain that is diffuse. Onset: The symptoms/episode ms3 began/occurred acutely, last night. The symptoms do not radiate. Associated signs and symptoms: Pertinent positives: nausea, vomiting, and diarrhea, fever. The symptoms are described as achy. Modifying factors: The symptoms are alleviated by nothing, the symptoms are aggravated by nothing. Severity of pain: At its worst the pain was a 10 / 10 in the emergency department the pain is unchanged. Historical: - Allergies: 18:37 Iodine; 6 18:37 Phenergan; 6 18:37 Rocephin; jh6 - PMHx: 18:37 Cirrhosis; Colitis; Crohn's; Depression; Liver disease; needs kidney and liver jh6 transplant; - PSHx: 18:37 bowel resection; Cholecystectomy; TIPS procedure; Total abdominal hysterectomy; jh6 - Immunization history:: Adult Immunizations up to date, Client reports receiving the 2nd dose of the Covid vaccine. - Social history:: Smoking status: unknown. ROS: 16:42 Constitutional: Negative for fever, and chills. Neck: Negative for injury, pain, and ms3 swelling, Cardiovascular: Negative for chest pain, and palpitations. Respiratory: Negative for shortness of breath, cough, wheezing, and pleuritic chest pain. 16:42 MS/Extremity: Negative for injury and deformity, Skin: Negative for injury, rash, and discoloration, Psych: Negative for depression, anxiety, suicide ideation, homicidal ideation, and hallucinations. 16:42 Abdomen/GI: Positive for abdominal pain, nausea, vomiting, and diarrhea. 16:42 All other systems are negative. Exam: 16:42 Constitutional: This is a well developed, well nourished patient who is awake, alert, ms3 and in no acute distress. Head/Face: Normocephalic, atraumatic. Neck: Trachea midline, no cervical lymphadenopathy. Supple, full range of motion without nuchal rigidity, or vertebral point tenderness. No Meningismus. Chest/axilla: Normal chest wall appearance and motion. Nontender with no deformity. Cardiovascular: Regular rate and rhythm with a normal S1 and S2. No gallops, murmurs, or rubs. Normal PMI, no JVD. No pulse deficits. Respiratory: Lungs have equal breath sounds bilaterally, clear to auscultation and percussion. No rales, rhonchi or wheezes noted. No increased work of breathing, no retractions or nasal flaring. Skin: Warm, dry with normal turgor. Normal color with no rashes, no lesions, and no evidence of cellulitis. Psych: Awake, alert, with orientation to person, place and time. Behavior, mood, and affect are within normal limits. 16:42 Abdomen/GI: Inspection: abdomen appears normal, Bowel sounds: normal, Palpation: moderate abdominal tenderness, in all quadrants. Vital Signs: 17:00 BP 87 / 50; Pulse 119; Resp 17; Temp 99.0; Pulse Ox 97% ; Pain 6/10; jh6 17:30 BP 85 / 55; Pulse 118; Resp 17; Pulse Ox 99% ; Pain 5/10; jh6 18:10 BP 77 / 47; Pulse 116; Resp 17; Pulse Ox 98% ; Pain 5/10; jh6 18:15 BP 92 / 52; Pulse 116; Resp 17; Pulse Ox 99% ; Weight 75.3 kg; Height 4 ft. [address] [facility] (149.86 cm); Pain 4/10; 18:35 BP 127 / 87; Pulse 115; Resp 17; Pulse Ox 98% ; Pain 4/10; 6 19:12 BP 87 / 46; Pulse 112; Resp 24; Pulse Ox 98% on R/A; sm5 19:51 BP 92 / 44; Pulse 112; Resp 23; Pulse Ox 97% on R/A; 5 18:15 Body Mass Index 33.53 (75.30 kg, 149.86 cm) [facility] MDM: 16:40 Patient medically screened. ms3 16:42 Differential diagnosis: bowel obstruction, gastritis, gastroesophageal reflux disease, ms3 non-specific abd pain. 18:25 Data reviewed: vital signs, nurses notes, lab test result(s), radiologic studies, CT ms3 scan. Counseling: I had a detailed discussion with the patient and/or guardian regarding: the historical points, exam findings, and any diagnostic results supporting the discharge/admit diagnosis, lab results, radiology results, the need for further work-up and treatment in the hospital. ED course: Discussed case with TESSIE Vega, and she accepts patient as admission. Discussed plan for admission with patient and she agrees with plan. All questions answered.. 12/27 16:41 Order name: CBC with Diff ms3 12/27 16:41 Order name: CMP; Complete Time: 18:13 ms3 12/27 16:41 Order name: Lipase; Complete Time: 18:13 ms3 12/27 16:41 Order name: Urine Microscopic Only ms3 12/27 19:03 Order name: COVID-19 SARS RT PCR (Document "Date of Onset" if Symptomatic) ss 12/27 19:05 Order name: Manual Differential EDMS 12/27 21:51 Order name: SARS-COV-2 RT PCR EDMS 12/27 23:05 Order name: Blood Culture Adult (2) jb4 12/28 03:04 Order name: CBC with Automated Diff EDMS 12/28 03:15 Order name: Ammonia EDMS 12/28 03:40 Order name: Comprehensive Metabolic Panel EDMS 12/28 03:40 Order name: Phosphorus EDMS 12/28 03:40 Order name: Magnesium EDMS 12/28 06:40 Order name: Blood Culture EDMS 12/27 16:41 Order name: IV Saline Lock; Complete Time: 17:18 ms3 12/27 16:41 Order name: Labs collected and sent; Complete Time: 17:18 ms3 12/27 17:40 Order name: Abdomen ; Complete Time: 18:13 EDMS Administered Medications: 18:06 Drug: NS 0.9% 1000 ml Route: IV; Rate: 1 bolus; Site: right antecubital; bp 19:27 Follow up: IV Status: Completed infusion; IV Intake: 1000ml sm5 18:06 Drug: Pepcid (famotidine) 20 mg Route: IVP; Site: right antecubital; bp 18:06 Drug: Zofran (Ondansetron) 4 mg Route: IVP; Site: right antecubital; bp 18:44 Drug: SOLU-Medrol (methylPrednisoLONE) 125 mg Route: IVP; Site: right antecubital; jh6 Disposition Summary: 12/27/21 18:24 Hospitalization Ordered Hospitalization Status: Inpatient Admission ms3 Provider: Calos Garduno ms3 Condition: Stable ms3 Problem: new ms3 Symptoms: are unchanged ms3 Bed/Room Type: Standard ms3 Location: Telemetry/MedSurg (Inpatient)(12/28/21 11:48) dw Room Assignment: [facility](12/28/21 11:48) dw Diagnosis - Crohn's disease of both small and large intestine ms3 - Abdominal pain, Generalized ms3 Forms: - Medication Reconciliation Form ms3 - SBAR form ms3 Signatures: Dispatcher [employer] EDMS Estella Marie, RN RN dw Marques Zamora Brian, RN RN Azam Walker, DO ms3 Alka Chauhan RN RN jh6 Marianela William RN sm5 Corrections: (The following items were deleted from the chart) 17:40 16:45 Abdomen Pelvis W Con+CT.RAD.BRZ ordered. EDMS EDMS 20:35 18:24 Telemetry/MedSurg (Inpatient) ms3 oe 20:35 18:24 ms3 oe 12/28 11:48 12/27 20:35 [facility] ER HOLD oe dw 12/28 11:48 12/27 20:35 ERHOLD- oe dw
--- NOTE | 2021-12-27 18:25 | ER ---
Nurse's Notes [facility] Name: Bella Barron Age: 61 yrs Sex: Female : 1960 Arrival Date: 12/27/2021 Time: 16:40 Bed 13 Private MD: Diagnosis: Crohn's disease of both small and large intestine;Abdominal pain, Generalized Presentation: 12/27 17:00 Chief complaint: EMS states: Pt called EMS for n/v/d that started last night. no fever jh6 and states that she has not vomited this afternoon but has been nauseated. Coronavirus screen: Vaccine status: Patient reports receiving the 2nd dose of the covid vaccine. Ebola Screen: Patient negative for fever greater than or equal to 101.5 degrees Fahrenheit, and additional compatible Ebola Virus Disease symptoms Patient denies exposure to infectious person. Patient denies travel to an Ebola-affected area in the 21 days before illness onset. Initial Sepsis Screen: Does the patient meet any 2 criteria? No. Patient's initial sepsis screen is negative. Does the patient have a suspected source of infection? No. Patient's initial sepsis screen is negative. Risk Assessment: Do you want to hurt yourself or someone else? Patient reports no desire to harm self or others. Onset of symptoms was December 26, 2021. 17:00 Method Of Arrival: EMS: [place] [id number] 17:00 Acuity: OLEG 3 jh6 Triage Assessment: 17:00 General: Appears uncomfortable, Behavior is calm, cooperative. Pain: Complains of pain jh6 in abdomen Pain currently is 6 out of 10 on a pain scale. Quality of pain is described as crampy, shooting, Is continuous, intermittent. 17:00 GI: Abdomen is obese, Bowel sounds present X 4 quads. Abd is soft X 4 quads Abdomen is jh6 tender to palpation X 4 quads. Reports lower abdominal pain, upper abdominal pain, cramping, diarrhea, nausea, vomiting. Historical: - Allergies: 18:37 Iodine; jh6 18:37 Phenergan; jh6 18:37 Rocephin; jh6 - PMHx: 18:37 Cirrhosis; Colitis; Crohn's; Depression; Liver disease; needs kidney and liver jh6 transplant; - PSHx: 18:37 bowel resection; Cholecystectomy; TIPS procedure; Total abdominal hysterectomy; jh6 - Immunization history:: Adult Immunizations up to date, Client reports receiving the 2nd dose of the Covid vaccine. - Social history:: Smoking status: unknown. Screenin:10 Abuse screen: Denies threats or abuse. Denies injuries from another. [facility] 17:10 Nutritional screening: No deficits noted. Tuberculosis screening: No symptoms or risk [facility] factors identified. Fall Risk Gait- Weak (10 pts.). Assessment: 17:10 General: Appears uncomfortable, ill, Behavior is calm, cooperative, pt arriving to room [facility] at this time from ems. 18:38 Reassessment: Patient and/or family updated on plan of care and expected duration. Pain [facility] level reassessed. Patient is alert, oriented x 3, equal unlabored respirations, skin warm/dry/pink. pt has had no episode of vomiting, pt appears comfortable has call light in reach and is aware that she is going to be admitted for abd pain Patient states symptoms have improved. Vital Signs: 17:00 BP 87 / 50; Pulse 119; Resp 17; Temp 99.0; Pulse Ox 97% ; Pain 6/10; jh6 17:30 BP 85 / 55; Pulse 118; Resp 17; Pulse Ox 99% ; Pain 5/10; jh6 18:10 BP 77 / 47; Pulse 116; Resp 17; Pulse Ox 98% ; Pain 5/10; jh6 18:15 BP 92 / 52; Pulse 116; Resp 17; Pulse Ox 99% ; Weight 75.3 kg; Height 4 ft. 11 in. [facility] (149.86 cm); Pain 4/10; 18:35 BP 127 / 87; Pulse 115; Resp 17; Pulse Ox 98% ; Pain 4/10; jh6 19:12 BP 87 / 46; Pulse 112; Resp 24; Pulse Ox 98% on R/A; sm5 19:51 BP 92 / 44; Pulse 112; Resp 23; Pulse Ox 97% on R/A; 5 18:15 Body Mass Index 33.53 (75.30 kg, 149.86 cm) [facility] ED Course: 16:40 Patient arrived in ED. ss 16:40 Azam Farrell DO is Attending Physician. ms3 16:49 Alka Chauhan, RN is Primary Nurse. [facility] 17:18 CBC with Diff Sent. 5 17:18 CMP Sent. 5 17:18 Lipase Sent. 5 17:18 Initial lab(s) drawn, by pr, sent to lab. Inserted saline lock: 22 gauge in right 5 antecubital area, using aseptic technique. Blood collected. 17:18 Allergy band placed. Bed in low position. Call light in reach. Side rails up X2. Pillow mh5 given. hand trucker on. Pulse ox on. NIBP on. 17:[address] 6 17:53 Abdomen In Process Unspecified. EDMS 18:05 Patient moved back from [address]. 6 18:24 Calos Garduno is Hospitalizing Provider. ms3 18:31 Triage completed. [facility] 19:22 COVID-19 SARS RT PCR (Document "Date of Onset" if Symptomatic) Sent. [facility] 12/28 00:08 Blood Culture Adult (2) Sent. [facility] 07:01 Primary Nurse role handed off by Alka Chauahn, AMARILIS bp 07:01 Mikhail Lopez, RN is Primary Nurse. bp Administered Medications: 12/27 18:06 Drug: NS 0.9% 1000 ml Route: IV; Rate: 1 bolus; Site: right antecubital; bp 19:27 Follow up: IV Status: Completed infusion; IV Intake: 1000ml [facility] 18:06 Drug: Pepcid (famotidine) 20 mg Route: IVP; Site: right antecubital; bp 18:06 Drug: Zofran (Ondansetron) 4 mg Route: IVP; Site: right antecubital; bp 18:44 Drug: SOLU-Medrol (methylPrednisoLONE) 125 mg Route: IVP; Site: right antecubital; [facility] Intake: 19:27 IV: 1000ml; Total: 1000ml. [facility] Outcome: 18:24 Decision to Hospitalize by Provider. ms3 12/28 13:23 Patient left the ED. ld1 Signatures: Dispatcher [employer] EDPR Natalie Gunderson, RN AMARILIS Michelle Uribe [facility] Mikhail Lopez, RN RN Azam Walker DO DO ms3 Mirian Pena RN RN ld1 Alka Chauhan RN RN 6 Marianela William RN RN [facility] Corrections: (The following items were deleted from the chart) 12/27 18:31 18:28 Chief complaint: jh6 jh6
[2021-12-27] MEDS ORDERED: METHYLPREDNISOLONE 125 MG INJ ONE (18:46)
[2021-12-27 19:04] LABS: Blood Morphology Comment NOT SEEN (NOT SEEN); Platelet Estimate DECR
--- NOTE | 2021-12-27 21:46 | P.HP ---
Certification for Inpatient Patient admitted to: Inpatient With expected LOS: <2 Midnights Patient will require the following post-hospital care: None Practitioner: I am a practitioner with admitting privileges, knowledge of patient current condition, hospital course, and medical plan of care. Services: Services provided to patient in accordance with Admission requirements found in Title 42 Section 412.3 of the Code of Federal Regulations Patient History Date of Service: 12/27/21 Reason for admission: Crohn's Flare, CAM History of Present Illness: Patient is a 61-year-old female with Crohn's disease, CKD stage III, and hepatic cirrhosis who presented to the ED via EMS with complaints of nausea, vomiting, diarrhea, abdominal pain that began last night. She states the symptoms are similar to her previous Crohn's exacerbations. Labs significant for creatinine of 2 (baseline ~1), BUN 26, T bili 3.9, CT positive for colitis. She was given Zofran, Pepcid, fluids, and Solu-Medrol in the ED with minimal improvement in her symptoms. ED provider wishes to admit patient for further evaluation and treatment. Allergies ceftriaxone [From Rocephin] Allergy (Verified 10/08/21 03:16) Anaphylaxis iodine Allergy (Verified 10/08/21 03:16) Anaphylaxis promethazine [From Phenergan] Allergy (Verified 10/08/21 03:16) Itching Fish Allergy (Uncoded 10/10/20 20:17) Rash Home medications list reviewed: Yes Home Medications: Nystatin [Nystop] 1 alhaji TOP TID 10/09/21 Ondansetron [Zofran (Odt)*] 4 mg PO DAILY PRN 10/09/21 Rifaximin [Xifaxan] 550 mg PO BID 10/09/21 Spironolactone [Aldactone*] 25 mg PO DAILY 10/09/21 Topiramate [Topamax] 50 mg PO BID 10/09/21 Tramadol HCl [Ultram] 50 mg PO BIDP PRN 10/09/21 Ubrogepant [Ubrelvy] 100 mg PO DAILY PRN 10/09/21 estradioL [Estradiol] 1 alhaji VAG BEDTIME PRN 10/09/21 Gabapentin 300 mg PO BID 12/04/21 Quetiapine Fumarate [Quetiapine Fumarate ER] 100 mg PO BEDTIME 12/04/21 Ramelteon 8 mg PO BEDTIME 12/05/21 Ciprofloxacin HCl [Cipro] 500 mg PO BID 10 Days #20 tablet 12/07/21 metroNIDAZOLE [Flagyl] 500 mg PO Q8H 10 Days #30 tablet 12/07/21 predniSONE [Prednisone] 20 mg PO SEECOM 28 Days #35 tablet 12/07/21 - Past Medical/Surgical History Diabetic: No -: Crohn's Disease -: Chronic liver cirrhosis with TIPS procedure -: Depression with anxiety -: Neuropathy -: Insomnia -: Parkinson's -: CKD 3 -: Anemia chronic disease -: Chronic 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 -: Gout -: multiple abdominal surgery due to Crohn's -: TIPS procedure -: Bleeding esophageal varices surgery Psychosocial/ Personal History: Patient disabled, lives with family - Family History Mother -: Blood disorders Notes: recently from blood disease Father -: Heart disease - Social History Smoking Status: Never smoker Alcohol use: No CD- Drugs: No Caffeine use: Yes Review of Systems Gastrointestinal: Nausea, Vomiting, Abdominal Pain, Diarrhea Physical Examination - Physical Exam General: Alert, In no apparent distress, Oriented x3 HEENT: Atraumatic, PERRLA, EOMI, Sclerae nonicteric Neck: Supple, 2+ carotid pulse no bruit, No LAD, Without JVD or thyroid abnormality Respiratory: Clear to auscultation bilaterally, Normal air movement Cardiovascular: Regular rate/rhythm, Normal S1 S2 Gastrointestinal: Normal bowel sounds, Non-distended, No rebound, No guarding, Tenderness Musculoskeletal: No tenderness Integumentary: No rashes Neurological: Normal speech, Normal strength at 5/5 x4 extr, Normal tone, Normal affect - Studies Laboratory Data (last 24 hrs) 12/27/21 17:11: Sodium 139, Potassium 3.5, BUN 26 H, Creatinine 2.05 H D, Glucose 123 H, Total Bilirubin 3.9 H, AST 21, ALT 23, Alkaline Phosphatase 57, Lipase 28 L 12/27/21 17:11: WBC 7.7 D, Hgb 11.5 L, Hct 35.1 L, Plt Count 79 L Assessment and Plan - Problems (Diagnosis) (1) Exacerbation of Crohn's disease Current Visit: Yes Status: Chronic Qualifiers: Digestive disease complication type: other complication Qualified Code(s): K50.918 - Crohn's disease, unspecified, with other complication (2) Acute kidney injury Current Visit: Yes Status: Acute (3) Hypotension Current Visit: Yes Status: Acute Qualifiers: Hypotension type: hypotension due to hypovolemia Qualified Code(s): I95.89 - Other hypotension; E86.1 - Hypovolemia (4) Colitis Current Visit: Yes Status: Acute (5) Hepatic cirrhosis Onset Date: 10/03/17 Current Visit: No Status: Chronic Qualifiers: Hepatic cirrhosis type: unspecified hepatic cirrhosis Ascites presence: without ascites Qualified Code(s): K74.60 - Unspecified cirrhosis of liver (6) Chronic renal disease Onset Date: 05/05/18 Current Visit: Yes Status: Chronic Qualifiers: Chronic kidney disease stage: stage 3 (moderate) - Plan Admit patient to the medical floor. Supportive measures with IV fluid and IV pain medications. Patient has been hypotensive. Monitor BP and hold antihypertensives. Monitor renal function and hold nephrotoxic drugs Antiemetics as needed No leukocytosis. Will hold off on antibiotics. IV steroids for Crohn's disease flare. Continue rifaximin and Aldactone for liver disease Hold lactulose given that patient already has diarrhea and ammonia is WNL. Check ammonia daily. Monitor and replete electrolytes as necessary Heparin for VTE ppx Discharge Plan: Home Plan to discharge in: 48 Hours - Advance Directives Does patient have a Living Will: No Does patient have a Durable POA for Healthcare: Yes - Code Status/Comfort Care Code Status Assessed: Yes (Full) Critical Care: No Time Spent Managing Pts Care (In Minutes): 70
[2021-12-27] MEDS ORDERED: ACETAMINOPHEN 500 MG TAB PO PRN (22:03)
[2021-12-27 22:09] VITALS: BMI 33.5
[2021-12-27] MEDS: FENTANYL CITR 100 MCG/2 ML IV PRN (23:09)
[2021-12-27] MEDS: NA CHLORIDE 0.9% 1,000 ML IV SCH (23:10)
[2021-12-27] MEDS ORDERED: FENTANYL CITR 100 MCG/2 ML ONE (23:11)
[2021-12-28] MEDS ORDERED: METHYLPREDNISOLONE 125 MG INJ ONE ×2 (00:51→08:31)
[2021-12-28] MEDS ORDERED: HEPARIN 5000 UNIT/ML 1 ML VIAL ONE ×2 (00:51→10:47)
[2021-12-28] MEDS: HEPARIN 5000 UNIT/ML 1 ML VIAL SQ SCH ×3 (01:00→16:44)
[2021-12-28 03:02] LABS: Absolute Lymphocytes (CBC) 0.2 K/uL (0.7-4.9); Hematocrit 30.1 % (36.0-45.0); Lymphocytes % 2.1 % (15.3-44.8); MPV 8.5 fL (7.6-11.3); RBC Red Blood Cell Count 3.46 M/uL (3.86-4.86)
[2021-12-28 03:33] LABS: Albumin 2.4 g/dL (3.4-5.0); Bilirubin Total 3.2 mg/dL (0.2-1.0); Phosphorus 2.6 mg/dL (2.5-4.9); Potassium 3.6 mmol/L (3.5-5.1); Protein, Total 5.7 g/dL (6.4-8.2)
[2021-12-28 03:40] LABS: Magnesium 1.3 mg/dL (1.8-2.4)
[2021-12-28] MEDS: FENTANYL CITR 100 MCG/2 ML IV PRN ×2 (05:24→08:00)
[2021-12-28] MEDS ORDERED: FENTANYL CITR 100 MCG/2 ML ONE ×2 (05:25→08:32)
[2021-12-28] MEDS: METHYLPREDNISOLONE 125 MG INJ IV SCH ×4 (06:00→16:44)
[2021-12-28] MEDS: NA CHLORIDE 0.9% 1,000 ML IV SCH ×4 (06:03→22:03)
[2021-12-28] MEDS ORDERED: NA CHLORIDE 0.9% 1,000 ML ONE (08:33)
[2021-12-28] MEDS: HYDROMORPHONE HCL 1 MG/ML INJ IV PRN ×3 (11:00→20:27)
[2021-12-28] MEDS ORDERED: HYDROMORPHONE HCL 1 MG/ML INJ ONE (11:40)
[2021-12-28 15:18] LABS: Urine Appearance Clear (Clear); Urine Blood Negative (Negative); Urine Glucose Negative (Negative); Urine Protein 1+ (Negative); Urine Specific Gravity 1.025 (1.005-1.030); Urine Urobilinogen 0.2 mg/dL (0.2-1.0)
[2021-12-28 15:38] LABS: Urine Color AMBER (Yellow); Urine Microscopic Reflex ORDER UMIC
[2021-12-28 15:45] LABS: Urine Bilirubin 1+ (Negative)
[2021-12-28 15:51] LABS: Urine Amorphous Sediment 1+ /HPF (NONE SEEN); Urine Bacteria 20-50 /HPF (<20); Urine RBC <5 /HPF (NONE SEEN); Urine Yeast PRESENT (NONE SEEN)
--- NOTE | 2021-12-28 19:50 | P.PN ---
Subjective Date of Service: 12/28/21 Chief Complaint: Crohn's Flare, CAM Patient reporting fatigue. She stated her diarrhea is better. No vomiting. She has been tolerating clear liquid diet. Physical Examination - Vital Signs Temperature: 97.8 F Blood Pressure: 118/58 Pulse: 105 Respirations: 20 Pulse Ox (%): 93 - Physical Exam General: Alert, In no apparent distress HEENT: Mucous membr. moist/pink Neck: Supple, JVD not distended Respiratory: Clear to auscultation bilaterally, Normal air movement Cardiovascular: No edema, Regular rate/rhythm, Normal S1 S2 Gastrointestinal: Normal bowel sounds, Non-distended, No ascites, Tenderness (Moderate diffuse tenderness) Musculoskeletal: No swelling Integumentary: No rashes, No cyanosis Neurological: Normal strength at 5/5 x4 extr Assessment And Plan - Current Problems (Diagnosis) (1) Exacerbation of Crohn's disease Current Visit: Yes Status: Chronic Qualifiers: Digestive disease complication type: other complication Qualified Code(s): K50.918 - Crohn's disease, unspecified, with other complication (2) Hepatic cirrhosis Onset Date: 10/03/17 Current Visit: No Status: Chronic Qualifiers: Hepatic cirrhosis type: unspecified hepatic cirrhosis Ascites presence: without ascites Qualified Code(s): K74.60 - Unspecified cirrhosis of liver (3) GERD (gastroesophageal reflux disease) Current Visit: No Status: Suspected Qualifiers: Esophagitis presence: esophagitis presence not specified Qualified Code(s): K21.9 - Gastro-esophageal reflux disease without esophagitis (4) Acute kidney injury Current Visit: Yes Status: Acute - Plan Patient clinically improving. Diarrhea frequency has decreased. GI-Dr. Nicole input appreciated. Continue IV steroid And IV antibiotics-Cipro and Flagyl. Stool studies-stool for C. difficile. Continue IV hydration, monitor closely for volume overload given history of liver cirrhosis and hypoalbuminemia. Hold laxatives for hepatic encephalopathy. Monitor renal function and electrolytes. Clear liquid diet as tolerated.
[2021-12-28] MEDS ORDERED: Magnesium Sulfate 2gm IVPB 2 G/50 ML BAG IV ONE (20:00)
[2021-12-28] MEDS ORDERED: Ubrogepant [Ubrelvy] 100 MG Tablet PO PRN (20:23)
[2021-12-28] MEDS ORDERED: TRAMADOL HCL 50 MG TAB PO PRN (20:23)
[2021-12-28] MEDS: CIPROFLOXACIN 400mg IV 400 MG/200 ML BAG IV SCH (20:28)
[2021-12-28] MEDS: ENSURE CLEAR 200 ML CAN PO SCH (20:31)
[2021-12-28] MEDS: ONDANSETRON 4 MG/2 ML VIAL IV PRN (20:31)
[2021-12-28] MEDS: TOPIRAMATE 25 MG TAB PO SCH (20:50)
[2021-12-28] MEDS: QUETIAPINE 100MG TAB PO SCH (20:51)
[2021-12-28] MEDS: GABAPENTIN 300 MG CAP PO SCH (20:51)
[2021-12-28] MEDS: NYSTATIN PWDR 100000 UNIT/GM TOP SCH (20:52)
[2021-12-28] MEDS: Rifaximin 550 MG Tab PO SCH (20:53)
[2021-12-28] MEDS ORDERED: ZOLPIDEM TARTRATE 5 MG TABLET PO SCH (21:00)
[2021-12-28] MEDS ORDERED: [UNRECOGNIZED DRUG - OTHER] PO SCH (21:00)
[2021-12-29] MEDS: METRONIDAZOLE 500mg IVPB 500 MG/100 ML BAG IV SCH ×3 (01:07→17:16)
[2021-12-29] MEDS: METHYLPREDNISOLONE 125 MG INJ IV SCH ×4 (01:08→17:16)
[2021-12-29] MEDS: HYDROMORPHONE HCL 1 MG/ML INJ IV PRN ×5 (01:23→20:37)
[2021-12-29] MEDS: HEPARIN 5000 UNIT/ML 1 ML VIAL SQ SCH ×3 (01:24→17:00)
[2021-12-29 05:58] LABS: Absolute Lymphocytes (CBC) 0.2 K/uL (0.7-4.9); Hematocrit 27.2 % (36.0-45.0); Lymphocytes % 4.2 % (15.3-44.8); MPV 8.7 fL (7.6-11.3); RBC Red Blood Cell Count 3.07 M/uL (3.86-4.86)
[2021-12-29] MEDS: NA CHLORIDE 0.9% 1,000 ML IV SCH ×3 (06:03→22:03)
[2021-12-29 06:13] LABS: Albumin 2.3 g/dL (3.4-5.0); Bilirubin Total 1.7 mg/dL (0.2-1.0); Magnesium 2.5 mg/dL (1.8-2.4); Potassium 3.4 mmol/L (3.5-5.1); Protein, Total 5.8 g/dL (6.4-8.2)
[2021-12-29] MEDS: ENSURE CLEAR 200 ML CAN PO SCH ×2 (09:00→20:46)
[2021-12-29] MEDS: ONDANSETRON 4 MG/2 ML VIAL IV PRN ×2 (10:04→20:37)
[2021-12-29] MEDS: NYSTATIN PWDR 100000 UNIT/GM TOP SCH ×3 (10:04→20:46)
[2021-12-29] MEDS: TOPIRAMATE 25 MG TAB PO SCH ×2 (10:05→20:37)
[2021-12-29] MEDS: GABAPENTIN 300 MG CAP PO SCH ×2 (10:05→20:37)
[2021-12-29] MEDS: SPIRONOLACTONE 25 MG TABLET PO SCH (10:05)
[2021-12-29] MEDS: Rifaximin 550 MG Tab PO SCH (10:06)
[2021-12-29] MEDS: CIPROFLOXACIN 400mg IV 400 MG/200 ML BAG IV SCH ×2 (10:06→20:33)
--- NOTE | 2021-12-29 11:59 | P.CNS ---
Date of Consult: 12/29/21 Reason for Consult: CAM Requesting Physician: dat vanegas Chief Complaint: Crohn's Flare, CAM History of Present Illness: 61F w/ PMHx of Crohn's disease & hepatic cirrhosis who p/w a 1 day hx of nausea, vomiting, diarrhea, abdominal pain admitted for crohn's dse flare. Referred to Nephrology for CAM. Baseline SCr 0.8-1.0. SCr on adm is 2.1. Received IV fluids. SCr improved to 1.3. Urinalysis w/ mild pyuria & trace proteinuria, no hematuria, but inadeq sample. Allergies ceftriaxone [From Rocephin] Allergy (Verified 10/08/21 03:16) Anaphylaxis iodine Allergy (Verified 10/08/21 03:16) Anaphylaxis promethazine [From Phenergan] Allergy (Verified 10/08/21 03:16) Itching Fish Allergy (Uncoded 10/10/20 20:17) Rash Home Medications: Nystatin [Nystop] 1 alhaji TOP TID 10/09/21 Ondansetron [Zofran (Odt)*] 4 mg PO DAILY PRN 10/09/21 Rifaximin [Xifaxan] 550 mg PO BID 10/09/21 Spironolactone [Aldactone*] 50 mg PO DAILY 10/09/21 Tramadol HCl [Ultram] 50 mg PO BIDP PRN 10/09/21 Ubrogepant [Ubrelvy] 100 mg PO DAILY PRN 10/09/21 Gabapentin 300 mg PO BID 12/04/21 Quetiapine Fumarate [Quetiapine Fumarate ER] 100 mg PO BEDTIME 12/04/21 Ramelteon 8 mg PO BEDTIME 12/05/21 - Past Medical/Surgical History Diabetic: No -: Crohn's Disease -: Chronic liver cirrhosis with TIPS procedure -: Depression with anxiety -: Neuropathy -: Insomnia -: Parkinson's -: CKD 3 -: Anemia chronic disease -: Chronic 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 -: Gout -: multiple abdominal surgery due to Crohn's -: TIPS procedure -: Bleeding esophageal varices surgery Psychosocial/ Personal History: Patient disabled, lives with family - Family History Mother Medical History: Blood disorders Notes: recently from blood disease Father Medical History: Heart disease - Social History Smoking Status: Unknown if ever smoked Alcohol use: No CD- Drugs: No Caffeine use: Yes Review of Systems General: Weakness Eyes: Unremarkable ENT: Unremarkable Respiratory: Unremarkable Cardiovascular: Unremarkable Gastrointestinal: Nausea, Vomiting, Abdominal Pain, Diarrhea Genitourinary: Unremarkable Musculoskeletal: Unremarkable Integumentary: Unremarkable Neurological: Unremarkable Lymphatics: Unremarkable Physical Examination Temp Pulse Resp BP Pulse Ox 97.4 F 100 H 18 136/69 99 12/29/21 08:00 12/29/21 08:00 12/29/21 10:34 12/29/21 08:00 12/29/21 10:34 General: In no apparent distress HEENT: Atraumatic, Normocephalic Neck: Supple, JVD not distended Respiratory: Clear to auscultation bilaterally Cardiovascular: No rubs, No murmurs Gastrointestinal: Non-distended, Other (+bowel sounds) Musculoskeletal: No clubbing Integumentary: No warmth Neurological: Normal speech, Normal tone Urinary: Other (no bladder distention) External genitalia: Deferred Rectal: Deferred Conclusions/Impression: # CAM 2/2 prerenal state Baseline SCr 0.8-1.0 SCr on adm is 2.1. Received IV fluids. SCr improved to 1.3 Urinalysis w/ mild pyuria & trace proteinuria, no hematuria, but inadeq sample Cont IV hydration [place] po fluid intake Monitor renal panel # HypoK KCl repletion today # HypoMg Improved Monitor/replete prn # Crohn's disease exacerbation IV steroid IV abx F/u stool c diff testing & hepatic cirrhosis who p/w a 1 day hx of nausea, vomiting, diarrhea, abdominal pain admitted for crohn's dse flare. Referred to Nephrology for CAM. Baseline SCr 0.8-1.0. SCr on adm is 2.1. Received IV fluids. SCr improved to 1.3. Urinalysis w/ mild pyuria & trace proteinuria, no hematuria, but inadeq sample. # Liver cirrhosis Laxatives on hold
[2021-12-29] MEDS ORDERED: ZOLPIDEM TARTRATE 5 MG TABLET PO PRN (12:33)
--- NOTE | 2021-12-29 15:32 | P.PN ---
Subjective Date of Service: 12/29/21 Chief Complaint: Crohn's Flare, CAM Patient states she feels much better today. She has tolerated a liquid diet and wants her diet advanced. She reports persistent diarrhea. No vomiting. Physical Examination - Vital Signs Temperature: 97.4 F Blood Pressure: 136/69 Pulse: 100 Respirations: 18 Pulse Ox (%): 99 - Physical Exam General: Alert, In no apparent distress, Oriented x3 HEENT: Mucous membr. moist/pink Neck: JVD not distended Respiratory: Clear to auscultation bilaterally, Normal air movement Cardiovascular: No edema, Regular rate/rhythm, Normal S1 S2 Gastrointestinal: Soft and benign, Non-distended, No tenderness Musculoskeletal: No swelling Integumentary: No rashes Neurological: Normal strength at 5/5 x4 extr Assessment And Plan - Current Problems (Diagnosis) (1) Exacerbation of Crohn's disease Current Visit: Yes Status: Chronic Qualifiers: Digestive disease complication type: other complication Qualified Code(s): K50.918 - Crohn's disease, unspecified, with other complication (2) Hepatic cirrhosis Onset Date: 10/03/17 Current Visit: No Status: Chronic Qualifiers: Hepatic cirrhosis type: unspecified hepatic cirrhosis Ascites presence: without ascites Qualified Code(s): K74.60 - Unspecified cirrhosis of liver (3) GERD (gastroesophageal reflux disease) Current Visit: No Status: Suspected Qualifiers: Esophagitis presence: esophagitis presence not specified Qualified Code(s): K21.9 - Gastro-esophageal reflux disease without esophagitis (4) Acute kidney injury Current Visit: Yes Status: Acute - Plan Patient clinically improving. Seen by GI-Dr. Nicole. Continue IV steroid Continue IV antibiotics-Cipro and Flagyl. Stool studies-stool for C. difficile is pending. Continue IV hydration, monitor closely for volume overload given history of liver cirrhosis and hypoalbuminemia. Laxatives for hepatic encephalopathy on hold. Advance diet as tolerated. Nephrology input appreciated. Monitor renal function and electrolytes. Increase activity as tolerated.
[2021-12-29] MEDS: QUETIAPINE 100MG TAB PO SCH (20:37)
[2021-12-29] MEDS: RIFAXIMIN 550 MG PO SCH (20:50)
[2021-12-30] MEDS: HEPARIN 5000 UNIT/ML 1 ML VIAL SQ SCH ×2 (00:07→09:00)
[2021-12-30] MEDS: METHYLPREDNISOLONE 125 MG INJ IV SCH ×3 (00:34→12:50)
[2021-12-30] MEDS: METRONIDAZOLE 500mg IVPB 500 MG/100 ML BAG IV SCH ×2 (00:35→09:54)
[2021-12-30] MEDS: HYDROMORPHONE HCL 1 MG/ML INJ IV PRN ×2 (00:50→09:54)
[2021-12-30 01:11] VITALS: O2SAT 98
[2021-12-30] MEDS: NA CHLORIDE 0.9% 1,000 ML IV SCH ×2 (02:19→06:03)
[2021-12-30] MEDS: ONDANSETRON 4 MG/2 ML VIAL IV PRN (02:21)
[2021-12-30] MEDS: FENTANYL CITR 100 MCG/2 ML IV PRN (05:16)
[2021-12-30 06:03] LABS: Absolute Lymphocytes (CBC) 0.2 K/uL (0.7-4.9); Hematocrit 27.2 % (36.0-45.0); Lymphocytes % 3.7 % (15.3-44.8); MPV 9.5 fL (7.6-11.3); RBC Red Blood Cell Count 3.05 M/uL (3.86-4.86)
[2021-12-30 06:22] LABS: Albumin 2.3 g/dL (3.4-5.0); Bilirubin Total 1.3 mg/dL (0.2-1.0); Potassium 3.5 mmol/L (3.5-5.1); Protein, Total 5.5 g/dL (6.4-8.2)
[2021-12-30 08:18] VITALS: TEMP 97
[2021-12-30] MEDS: NYSTATIN PWDR 100000 UNIT/GM TOP SCH ×2 (09:00→12:50)
[2021-12-30] MEDS: ENSURE CLEAR 200 ML CAN PO SCH (09:00)
[2021-12-30] MEDS: RIFAXIMIN 550 MG PO SCH (09:54)
[2021-12-30] MEDS: CIPROFLOXACIN 400mg IV 400 MG/200 ML BAG IV SCH (09:54)
[2021-12-30] MEDS: TOPIRAMATE 25 MG TAB PO SCH (09:55)
[2021-12-30] MEDS: GABAPENTIN 300 MG CAP PO SCH (09:55)
[2021-12-30] MEDS: SPIRONOLACTONE 25 MG TABLET PO SCH (09:55)
[2021-12-30 12:18] VITALS: BP 125/62
[2021-12-30 12:57] LABS: C.diff Antigen/Toxin Ag pos : Tox pos (NEG : NEG)
--- NOTE | 2021-12-30 13:53 | P.PN ---
Subjective Date of Service: 12/30/21 Chief Complaint: Crohn's Flare, CAM Today feels better still have diarrhea cr down to 1.0 Cont Abx General: AAOX3, NAD HEENT: Atraumatic, Normocephalic Neck: Supple, no elevated JVD Respiratory: Other CTAB. No rales or wheezes Cardiovascular: No rubs, No murmurs Gastrointestinal: Soft and benign, Non-distended Musculoskeletal: No clubbing Integumentary: No warmth Neurological: Normal tone, Sensation intact A/P # CAM 2/2 prerenal state resolved Baseline SCr 0.8-1.0 SCr on adm is 2.1. Received IV fluids. [place] po fluid intake Monitor renal panel # HypoK due to diarrhea resolved replace as needed # HypoMg due to diarrhea resolved Monitor/replete prn # Crohn's disease exacerbation IV steroid IV abx F/u stool c diff testing # Liver cirrhosis Laxatives on hold Total time spent 35 minutes including documentation, reviewing labs , placing orders and discussing plan of care with medical staff and pt Physical Examination - Vital Signs Temperature: 97.0 F Blood Pressure: 125/62 Pulse: 95 Respirations: 16 Pulse Ox (%): 98
--- NOTE | 2021-12-30 15:02 | P.DS ---
Admission Date: 12/27/21 Discharge Date: 12/30/21 Disposition: ROUTINE DISCHARGE Discharge Condition: FAIR Reason for Admission: Crohn's Flare, CAM - Problems (1) Exacerbation of Crohn's disease Current Visit: Yes Status: Chronic Qualifiers: Digestive disease complication type: other complication Qualified Code(s): K50.918 - Crohn's disease, unspecified, with other complication (2) Hepatic cirrhosis Onset Date: 10/03/17 Current Visit: No Status: Chronic Qualifiers: Hepatic cirrhosis type: unspecified hepatic cirrhosis Ascites presence: without ascites Qualified Code(s): K74.60 - Unspecified cirrhosis of liver (3) GERD (gastroesophageal reflux disease) Current Visit: No Status: Suspected Qualifiers: Esophagitis presence: esophagitis presence not specified Qualified Code(s): K21.9 - Gastro-esophageal reflux disease without esophagitis (4) Acute kidney injury Current Visit: Yes Status: Acute Brief History of Present Illness: Patient is a 61-year-old female with Crohn's disease, CKD stage III, and hepatic cirrhosis who presented to the ED via EMS with complaints of nausea, vomiting, diarrhea, abdominal pain that began last night. She states the symptoms are similar to her previous Crohn's exacerbations. She as a history of C. difficile colitis. Labs significant for creatinine of 2 (baseline ~1), BUN 26, T bili 3.9, CT positive for colitis. She was given Zofran, Pepcid, fluids, and Solu-Medrol in the ED with minimal improvement in her symptoms. Patient admitted for further management. Hospital Course: Patient admitted to the medical floor and treated with IV steroid, IV ciprofloxacin and Flagyl for possible infectious enterocolitis. GI consulted, patient seen by Dr. Nicole recommended to continue antibiotics and IV steroid. Noted patient has a history of mild Crohn's disease and had been on oral Pentasa. Her abdominal pain nausea and vomiting resolved. She showed evidence of acute renal failure. Patient was seen and evaluated by nephrology. The acute renal failure resolved with IV hydration. Patient tolerated diet advancement. She will continue to have loose stools. Her stool tested positive for C. difficile. This is the first relapse after an initial treatment. Patient symptoms likely secondary to C. difficile colitis. She is supposed to take rifaximin for hepatic encephalopathy prophylaxis which should help with C. difficile colitis. Patient is prescribed a repeat dose oral vancomycin for 2 weeks. She follows up with a ornamental metal worker apprentice in [place] and advised follow- up with him as soon as possible. Vital Signs/Physical Exam: Temp Pulse Resp BP Pulse Ox 97.0 F 95 H 18 125/62 98 12/30/21 13:53 12/30/21 13:53 12/30/21 14:22 12/30/21 13:53 12/30/21 14:22 General: Alert, In no apparent distress, Oriented x3 HEENT: Mucous membr. moist/pink Neck: JVD not distended Respiratory: Clear to auscultation bilaterally, Normal air movement Cardiovascular: No edema, Regular rate/rhythm, Normal S1 S2 Gastrointestinal: Soft and benign, Non-distended, No tenderness Musculoskeletal: No swelling Integumentary: No rashes Neurological: Normal strength at 5/5 x4 extr Laboratory Data at Discharge: WBC 4.6 K/uL (4.3-10.9) D 12/30/21 05:49 Hgb 8.9 g/dL (12.0-15.0) L 12/30/21 05:49 Hct 27.2 % (36.0-45.0) L 12/30/21 05:49 Plt Count 64 K/uL (152-406) L 12/30/21 05:49 Sodium 139 mmol/L (136-145) 12/30/21 05:49 Potassium 3.5 mmol/L (3.5-5.1) 12/30/21 05:49 BUN 25 mg/dL (7-18) H 12/30/21 05:49 Creatinine 1.07 mg/dL (0.55-1.3) 12/30/21 05:49 Glucose 209 mg/dL (74-106) H 12/30/21 05:49 Phosphorus 2.6 mg/dL (2.5-4.9) 12/28/21 02:47 Magnesium 2.5 mg/dL (1.8-2.4) H D 12/29/21 05:37 Total Bilirubin 1.3 mg/dL (0.2-1.0) H 12/30/21 05:49 AST 22 U/L (15-37) 12/30/21 05:49 ALT 23 U/L (12-78) 12/30/21 05:49 Alkaline Phosphatase 55 U/L (45-117) 12/30/21 05:49 Lipase 28 U/L (73-393) L 12/27/21 17:11 Home Medications: Nystatin [Nystop] 1 alhaji TOP TID 10/09/21 Ondansetron [Zofran (Odt)*] 4 mg PO DAILY PRN 10/09/21 Rifaximin [Xifaxan] 550 mg PO BID 10/09/21 Spironolactone [Aldactone*] 50 mg PO DAILY 10/09/21 Ubrogepant [Ubrelvy] 100 mg PO DAILY PRN 10/09/21 Gabapentin 300 mg PO BID 12/04/21 Quetiapine Fumarate [Quetiapine Fumarate ER] 100 mg PO BEDTIME 12/04/21 Ramelteon 8 mg PO BEDTIME 12/05/21 Topiramate [Topamax*] 50 mg PO BID #60 tab 12/30/21 Vancomycin Oral Soln [Vancocin HCl*] 5 ml PO QID #280 ml 12/30/21 traMADol HCL [Ultram*] 50 mg PO Q6H PRN #10 tab 12/30/21 New Medications: Topiramate [Topamax*] 50 mg PO BID #60 tab traMADol HCL [Ultram*] 50 mg PO Q6H PRN #10 tab PRN Reason: Pain Vancomycin Oral Soln [Vancocin HCl*] 5 ml PO QID #280 ml Diet: AHA Activity: Ad amrita Followup: NONE,NONE [Primary Care Provider] - 1-2 Weeks Time spent managing pt's care (in minutes): 37
== END 2021-12-30 16:00 | disposition home health service (06) | DRG 386 ==
LOC: ER 16:35 → ERHOLD 20:01 → 2ND 12-28 12:32
PROVIDERS: ADMIT Internal Medicine; ATTEND Internal Medicine
DX: K50.918 Crohn's disease, unspecified, with other complication (principal); N17.9 Acute kidney failure, unspecified; A04.72 Enterocolitis due to Clostridium difficile, not specified as recurrent; N18.30 Chronic kidney disease, stage 3 unspecified; K74.60 Unspecified cirrhosis of liver; K21.9 Gastro-esophageal reflux disease without esophagitis; E87.6 Hypokalemia; E83.42 Hypomagnesemia; G20 Parkinson's disease; F41.8 Other specified anxiety disorders; M10.9 Gout, unspecified; I95.9 Hypotension, unspecified; Z20.822 Contact with and (suspected) exposure to COVID-19
CPT/HCPCS: 36415; 70450; 74176; 80048; 80053; 80076; 80320; 80329; 81003; 81015; 82140; 83690; 83735; 84100; 84484; 85025; 85610; 85730; 87040; 87086; 87088; 87324; 87449; 93005; 96361; 96365; 96374; 96375; 99284; 99285; J0744; J1170; J1644; J2270; J2405; J2930; J3010; J3475; J3490; J7030; U0003

== ENCOUNTER 2022-01-17 06:32 | Day surgery (SDC) | payer OTHER ==
[2022-01-17] MEDS ORDERED: Ringers Lactate 1,000 ML IV ONE (07:37)
[2022-01-17] MEDS ORDERED: LIDOCAINE 1% MPF 5 ML VIAL ONE (08:58)
[2022-01-17] MEDS ORDERED: FENTANYL CITR 100 MCG/2 ML ONE (08:58)
[2022-01-17] MEDS ORDERED: propofoL 200 MG/20 ML VIAL IV ONE ×2 (08:58→09:31)
[2022-01-17] MEDS ORDERED: MIDAZOLAM HCL 2 MG/2 ML INJ ONE (09:13)
--- NOTE | 2022-01-17 09:28 | ENDO RPT ---
[address], [address] EGD PROCEDURE REPORT EXAM DATE: 01/17/2022 PATIENT NAME: Bella Barron MR#: [id number] BIRTHDATE: 1960 ATTENDING: Tom Rosas Dr STATUS: outpatient SHOVEL OILER: María Diamond and Анна Osorio RN INDICATIONS: The patient is a 61 yr old Female here for an EGD due to mid epigastric abdominal pain, left upper quadrant abdominal pain, right upper quadrant abdominal pain, nausea, heartburn, history of Crohn'sdisease, and chronic unexplained diarrhea PROCEDURE PERFORMED: EGD with biopsy MEDICATIONS: Per Anesthesia. TOPICAL ANESTHETIC: none CONSENT: The patient understands the risks and benefits of the procedure and understands that these risks include, but are not limited to: sedation, allergic reaction, infection, perforation and/or bleeding. Alternative means of evaluation and treatment include, among others: physical exam, x-rays, and/or surgical intervention. The patient elects to proceed with this endoscopic procedure. DESCRIPTION OF PROCEDURE: During intra-op preparation period all mechanical medical equipment was checked for proper function. Hand hygiene and appropriate measures for infection prevention was taken. Procedure, possible complications, and alternatives including but not limited to the possibility of bleeding, perforation, tear, infection, sepsis, need for surgery, need for blood transfusion, and anesthesia related complications were explained to the patient. After the risks, benefits and alternatives of the procedure were thoroughly explained, Informed consent was verified, confirmed and timeout was successfully executed by the treatment team. The patient was placed in the left lateral position. The patient was anesthetized with topical anesthesia. Through the anesthetized oropharyngeal area, the scope was passed without any difficulty. The Pentax [id number] ([id number]) endoscope was introduced through the mouth and advanced to the third portion of the duodenum. Retroflexed views revealed a small hiatal hernia. The gastroscope was then slowly withdrawn and removed. A small hiatal hernia was found Mild atrophic gastritis was found in the antrum. Multiple biopsies were obtained and sent to pathology. Mild duodenitis was found in the bulb and descending duodenum. Small bowel biopsies obtained. ADVERSE EVENTS: There were no complications. IMPRESSIONS: 1. Small hiatal hernia 2. Mild atrophic gastritis in the antrum, s/p biopsies 3. Mild duodenitis in the bulb and descending duodenum 4. Small bowel biopsies obtained RECOMMENDATIONS: 1. await biopsy results 2. acid suppression therapy REPEAT EXAM: Tom Rosas Dr eSigned: Tom Rosas Dr 01/17/2022 9:28 AM cc: Leon Tamez CPT CODES: ICD9 CODES: PATIENT NAME: Bella Barron MR#: [id number]
--- NOTE | 2022-01-17 09:54 | ENDO RPT ---
[address], [address] COLONOSCOPY PROCEDURE REPORT EXAM DATE: 01/17/2022 PATIENT NAME: Bella Barron MR #: [id number] BIRTHDATE: 1960 ATTENDING: Tom Rosas Dr STATUS: outpatient PRODUCTION COST ESTIMATOR: Анна Osorio RN and María Diamond INDICATIONS: The patient is a 61 yr old Female here for a colonoscopy due to hematochezia, abdominal pain, change in bowel habits, and unexplained chronic diarrhea PROCEDURE PERFORMED: Colonoscopy with biopsy MEDICATIONS: Per Anesthesia. ESTIMATED BLOOD LOSS: Minimal CONSENT: The patient understands the risks and benefits of the procedure and understands that these risks include, but are not limited to: sedation, allergic reaction, infection, perforation and/or bleeding. Alternative means of evaluation and treatment include, among others: physical exam, x-rays, and/or surgical intervention. The patient elects to proceed with this endoscopic procedure. DESCRIPTION OF PROCEDURE: During intra-op preparation period all mechanical medical equipment was checked for proper function. Hand hygiene and appropriate measures for infection prevention was taken. Procedure, possible complications, alternatives including, but not limited to possibility of bleeding, perforation, tear, infection, sepsis, need for surgery, need for blood transfusion, were explained to the patient. After the risks, benefits and alternatives of the procedure were thoroughly explained, Informed consent was verified, confirmed and timeout was successfully executed by the treatment team. The patient was placed in the left lateral position. A digital rectal exam was performed and revealed several skin tags. After appropriate level of anesthesia, the scope was passed. The [id number] ([id number]) endoscope was introduced through the anus and advanced to the ileum. The quality of the prep was fair. The instrument was then slowly withdrawn as the colon was fully examined. Scope withdrawal time was 7 minutes. COLON FINDINGS: There was evidence of a prior end-to-side ileocolonic surgical anastomosis in the proximal transverse colon. Random biopsies of the ileum / colon / rectum obtained with history of Crohn's disease. Internal hemorrhoids were found. Retroflexion was not performed. The scope was then completely withdrawn from the patient and the procedure terminated. ADVERSE EVENTS: There were no complications. IMPRESSIONS: 1. There was evidence of a prior ileocolonic surgical anastomosis in the proximal transverse colon 2. Random biopsies of the ileum / colon / rectum obtained with history of Crohn's disease 3. Internal hemorrhoids RECOMMENDATIONS: 1. await biopsy results 2. avoid NSAIDS 3. Medical clearance with colonoscopy and polypectomy to follow. 4. Small Bowel Follow Through 5. pillcam / capsule endoscopy RECALL: Return in 1 year(s) for Colonoscopy. Tom Rosas Dr eSigned: Tom Rosas Dr 01/17/2022 9:54 AM cc: Leon Tamez CPT CODES: ICD9 CODES: PATIENT NAME: Bella Barron MR#: [id number]
[2022-01-17] MEDS: MORPHINE 4 MG/ML SYR ONE ×2 (09:57→10:03)
[2022-01-17 11:33] VITALS: O2SAT 100
[2022-01-17 11:34] VITALS: BP 104/62; TEMP 97.3
--- NOTE | 2022-01-17 15:22 | RAD REPORT ---
EXAM DESCRIPTION: RAD - Small Bowel Series - 01/17/2022 3:09 pm CLINICAL HISTORY: Abdominal pain/ COMPARISON: None. FINDINGS: Contrast enters the colon by approximately 1 hour 20 minutes. The mucosal folds of the small bowel appear normal. No permanent filling defects Postsurgical changes involve the cecum/terminal ileum. Narrowing of the distal small bowel is present . The small bowel caliber is normal. IMPRESSION: Short segment narrowing of the distal small bowel without obstruction
== END 2022-01-17 11:23 | disposition home or self-care (01) ==
LOC: OR 06:32
PROVIDERS: ATTEND Internal Medicine Gastroenterology
PROC: 0DB68ZX Excision of Stomach, Via Natural or Artificial Opening Endoscopic, Diagnostic (ICD-10-PCS; 2022-01-17)
PROC: 0DB88ZX Excision of Small Intestine, Via Natural or Artificial Opening Endoscopic, Diagnostic (ICD-10-PCS; 2022-01-17)
PROC: 0DBB8ZX Excision of Ileum, Via Natural or Artificial Opening Endoscopic, Diagnostic (ICD-10-PCS; principal; 2022-01-17 08:30)
PROC: 0DBP8ZX Excision of Rectum, Via Natural or Artificial Opening Endoscopic, Diagnostic (ICD-10-PCS; 2022-01-17 08:30)
DX: K29.80 Duodenitis without bleeding (principal); R10.9 Unspecified abdominal pain; R19.4 Change in bowel habit; K52.9 Noninfective gastroenteritis and colitis, unspecified; K64.8 Other hemorrhoids; K50.90 Crohn's disease, unspecified, without complications; K31.7 Polyp of stomach and duodenum; K29.50 Unspecified chronic gastritis without bleeding; K44.9 Diaphragmatic hernia without obstruction or gangrene; R11.0 Nausea; R12 Heartburn; R10.13 Epigastric pain; R10.12 Left upper quadrant pain; R10.11 Right upper quadrant pain; Z20.822 Contact with and (suspected) exposure to COVID-19
CPT/HCPCS: 88312; 88305; 86021; 74250; 86036; 86671; 45380; 43239; U0003; J2704 ×2; J2250; J3010; J7120

== ENCOUNTER 2022-01-20 02:15 | Emergency (ER) | payer OTHER ==
--- OUTSIDE RECORDS SUMMARY | 2022-01-20 02:25 | XMS REPORT | Continuity of Care Document ---
:1960 Author Organization [facility] t Address [address] [place] [address] Care Team Providers Name Role Phone EldernataRobby Primary Care Physician Rodolfo Díaz Attending Clinician Unavailable JOSE Attending Clinician Unavailable Jay LAMAR Attending Clinician TING PIERSON Attending Clinician Unavailable MD ERIKA MARSHALL Attending Clinician Unavailable JESSICA HALL Attending Clinician Unavailable VIVIANE Attending Clinician Unavailable Viviane FRANKLIN Attending Clinician Matthew [place] RN Attending Clinician Unavailable ADALI Attending Clinician Unavailable Austin Balderrama MD Attending Clinician Davina FRANKLIN Attending Clinician Tomy FRANKLIN Attending Clinician Theodore DUBOSE Attending Clinician Unavailable Jesus OLMOS Attending Clinician Unavailable MD DAVINA Attending Clinician Unavailable MD RYLEE DORADO Attending Clinician Unavailable Stephanie GUAJARDO Attending Clinician Unavailable Kortney Limon DO Attending Clinician DO Kortney LIMON Attending Clinician Unavailable John Murillo, Johnny Attending Clinician Unavailable Bin Bangura MD Attending Clinician Zulma Williamson MA Attending Clinician Unavailable CHELA Attending Clinician Unavailable MD DANGELO GIRARD Attending Clinician Unavailable Randal OLMOS Attending Clinician Unavailable Jesus Alberto Kovacs DO Attending Clinician Mildred FRANKLIN FLaurel Attending Clinician MD Ping GARCIA Attending Clinician Unavailable Curry Gutierrez DO Attending Clinician Gus Azevedo MD Attending Clinician Chris FRANKLIN, Gabriel Attending Clinician MD CHELA Attending Clinician Unavailable MD ERIKA MARSHALL Attending Clinician Unavailable ELLE Attending Clinician Unavailable PLACIDO Attending Clinician Unavailable MARYBETH Attending Clinician Unavailable MD Ivone CHAMPION Attending Clinician Unavailable YOJANA Attending Clinician Unavailable DO ORLANDO RUEDA Attending Clinician Unavailable JACQUELIN Attending Clinician Unavailable MEAGAN Attending Clinician Unavailable Daija HERRON S Attending Clinician DARCY Attending Clinician Unavailable ROLANDO Admitting Clinician Unavailable ELAINA LAWRENCE Admitting Clinician Unavailable TING PIERSON Admitting Clinician Unavailable MD DANGELO GIRARD Admitting Clinician Unavailable MD RYLEE DORADO Admitting Clinician Unavailable DO Kortney LIMON Admitting Clinician Unavailable DAVINA Admitting Clinician Unavailable MD DAVINA Admitting Clinician Unavailable CHELA Admitting Clinician Unavailable MD Ping GARCIA Admitting Clinician Unavailable MD CHELA Admitting Clinician Unavailable MAGDA Admitting Clinician Unavailable MD MAGDA PLaurel Admitting Clinician Unavailable JAYCEE Admitting Clinician Unavailable MD Ivone CHAMPION Admitting Clinician Unavailable MARYBETH Admitting Clinician Unavailable DO ORLANDO RUEDA Admitting Clinician Unavailable DARCY Admitting Clinician Unavailable Payers Payer Name Policy Type Policy Number Effective Date Expiration Date Faustino vasquez MEDICARE A B [id number] 2015 00:00:00 GENERIC MEDICAID [id number] 2021 HMO 00:00:00 Problems Condition Condition Condition Status Onset Resolution Last Treating Co mments Source Name Details Category Date Date Treatment Clinician Date Altered Altered Disease Active 2022-[address] [facility] Center SBP SBP Disease Active Methodi (spontaneo (spontaneo 1-13 st us us 00:00: Hospita bacterial bacterial 00 l peritoniti peritoniti s) s) Debility Debility Disease Active Metho di 1 st 00:00: Hospita 00 l Mobility Mobility Disease Active Metho di impaired impaired 08-21 st 00:00: Hospita 00 l Metabolic Metabolic Disease Active Met hodi acidosis acidosis 1 st 00:00: Hospita 00 l Preoperati Preoperati Disease Active Overview : Methodi ve ve [address] clearance clearance 00:00: g of this H ospita 00 note l might be different from the original. Added automatic ally from request for surgery [id number] Chronic Chronic Disease Active 2020-08 [facility] kidney kidney 0-15 st disease disease 00:00: Hospita 00 l SBP SBP Disease Active 2020-08 [facility] (spontaneo (spontaneo 0-13 st us us 00:00: Hospita bacterial bacterial 00 l peritoniti peritoniti s) s) Acute Acute Disease Active 2019-08 [facility] cystitis cystitis 003 st without without 00:00: Hospita hematuria hematuria 00 l Hyperkalem Hyperkalem Disease Active 2019-08 [facility] [facility] ia ia 0 st 00:00: Hospita 00 l Lymphedema Lymphedema Disease Active M ethodi 9 st 00:00: Hospita 00 l Tremor of Tremor of Disease Active Met hodi unknown unknown 8 st origin origin 00:00: Hospita 00 l Weakness Weakness Disease Active Metho di generalize generalize 608 st d d 00:00: Hospita 00 l Confusion Confusion Disease Active Met hodi 303 st 00:00: Hospita 00 l Acute Acute Disease Active 2018-08 [facility] hepatic hepatic [address] st encephalop encephalop 00:00: Ho spita athy athy 00 l Slurred Slurred Disease Active Methodi speech speech 05-08 st 00:00: Hospita 00 l CAM (acute CAM (acute Disease Active M ethodi kidney kidney 9 st injury) injury) 00:00: Hospita 00 l UTI UTI Disease Active [facility] (urinary (urinary 04-14 st tract tract 00:00: Hospita infection) infection) 00 l Altered Altered Disease Active Methodi mental mental 03-19 status, status, 00:00: Hospita unspecifie unspecifie 00 l d d Obesity Obesity Disease Active Univers (BMI (BMI 7-26 ity of 30-39.9) 30-39.9) 00:00: [place] [address] Medical Branch Hematochez Hematochez Disease Active U nivers ia ia 03-06 ity of 00:00: [place] [address] Medical Branch Abdominal Abdominal Disease Active Met hodi pain pain 11-12 00:00: Hospita 00 l Weakness Weakness Disease [...] Melena Disease Active Overview: Method i 12-[address] 00:00: g of this Hospita 00 note l might be different from the original. 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 4- ity of 00:00: [place] [facility] Anxiety Anxiety Disease Active Univers and and 4- ity of depression depression [place]: [place] [facility] Rectal Rectal Disease Active 2014-08 Univers bleed bleed 2-03 ity of 00:00: [place] [address] [facility] Branch Crohn Crohn Disease Active [facility] disease disease [facility] Allergies, Adverse Reactions, Alerts Allergy Allergy Status Severity Reaction(s) Onset Inactive Treating Comm ents Source Name Type Date Date Clinician FISH Allergy Active [facility] CONTAINI 2- NG 00:00: PRODUCTS 00 SHELLFIS Allergy Active [facility] H 2 CONTAINI 00:00: NG 00 PRODUCTS Eggshell Drug Active [facility] Membrane Allergy 09-07 [facility] 00:00: Medical [address] [place] [address] EGGSHELL Allergy Active [facility] MEMBRANE 09-07 00:00: 00 CE[address]TRIAX Allergy Active [facility]02 [facility] IODINE Allergy [facility] PROMETHA Allergy Active [facility] ZINE [facility]02 [facility] Center Ceftriax Propensi Active [facility] one ty to 09-02 [facility] adverse 00:00: Medical reaction 00 Center s Iodine Propensi Active [facility] ty to 09-02 [facility] adverse 00:00: Medical reaction 00 Center s Prometha Propensi Active [facility] zine ty to 09-02 [facility] adverse 00:00: Medical reaction 00 Center s Ciproflo Propensi Active Hives 2020-08 Method i xacin ty to 0 st adverse 00:00: Hospita reaction 00 l s to drug Ceftriax Propensi Active Itching Unive rs one ty to 10-06 ity of adverse 00:00: [place] reaction 00 Medical s Branch Ceftriax Propensi Active Itching Metho di one ty to 10-06 st adverse 00:00: Hospita reaction 00 l s to drug Prometha Propensi Active Other - See 2017-0 Severe U nivers zine ty to comments 3- confusion ity o f adverse 00:00: [place] reaction 00 Medical s Branch Eggshell Propensi Active Diarrhea 2017-0 Egg yoke Un linda Membrane ty to 10-08 ity of adverse 00:00: [place] reaction 00 Medical s Branch Eggshell Propensi Active Diarrhea 2017-0 Egg yoke Me thodi Membrane ty to 10-08 st adverse 00:00: Hospita reaction 00 l s to drug Prometha Propensi Active Other (See 2017-0 Severe Me thodi zine ty to Comments) 1- confusion st adverse 00:00: Hospita reaction 00 l s to drug Shellfis Propensi Active Anaphylaxis 2016-0 U nivers h ty to 05-05 ity of Derived adverse 00:00: [place] reaction 00 Medical s Branch Shellfis Propensi Active Anaphylaxis M ethodi h ty to 05-05 st Derived adverse 00:00: Hospita reaction 00 l s to drug Iodine Propensi Active Anaphylaxis 2016-0 SOB, Met hodi ty to 05-01 wheezing, st adverse 00:00: "my Hospita reaction 00 throat l s to closes drug up."*pt states cannot have topical nor IV Iodine Propensi Active Anaphylaxis Uni vers ty to 03-29 ity of adverse 00:00: [place] reaction 00 Medical s Branch NO KNOWN Allergy Active [facility] ALLERGIE S Phenerga Adverse Active Info Not Commo n n Reaction Available [facility] Iodine Adverse Active Info Not Common Reaction Available [facility] Family History Family Member Diagnosis Comments Start Date Stop Date Source Natural father No Known Problems Met [facility] Natural mother No Known Problems Met [facility] Social History Social Habit Start Date Stop Date Quantity Comments Source History SDOH [facility]m Alcohol Frequency Hospita l History SDOH [facility] Alcohol Std Drinks Hospit al History SDOH [facility] Alcohol Binge Hospital Exposure to Not sure University of SARS-CoV-2 (event) [facility] Alcohol intake 2021-08-30 2021-08-30 Ex-drinker [facility]m 00:00:00 00:00:00 (finding) Hospital Tobacco use and 2019-01-30 2019-01-30 Never used Universit y of exposure 00:00:00 00:00:00 [facility] History of tobacco 1979-01-30 2018-08-12 Cigarette Smoker University of use 00:00:00 00:00:00 [facility] Cigarettes smoked 2016-11-22 2016-11-[address] current (pack per 00:00:00 00:00:00 Hospita l day) - Reported Cigarette 2016-11-22 2016-11-22 [facility] pack-years 00:00:00 00:00:00 Hospital Tobacco Comment 2016-09-12 2016-09-12 smokes 5 [facility]m 00:00:00 00:00:00 cigarettes per Hospital day Alcohol Comment 2016-05-02 2016-05-02 Former social Method ist 00:00:00 00:00:00 alcohol use, quit Hospita l several years ago; denies history of heavy alcohol use Sex Ass[birth year] [facility] 00:00:00 00:00:00 Hospital Smoking Status Start Date Stop Date Source Never smoker [facility] Ex-smoker 2016-11-22 00:00:00 2016-11-22 00:00:00 [facility] Medications Ordered Filled Start Stop Current Ordering Indication Dosage Frequency Signature Comments Components Source Medication Medication Date Date Medication? Clinician (SIG) Name Name estradioL Yes [id number] Apply 1g Univers (ESTRACE) 2-21 vaginally ity o f 0.01 % (0.1 00:00: at bedtime [place] mg/gram) 00 every Medical vaginal night for Branch cream 2 weeks and then apply 1g vaginally at bedtime 3 times per week (Saturday//) nystatin Yes [id number] Apply to U nivers (NYSTOP) 2-21 area(s) 3 ity of 100,000 00:00: (three) [place] unit/gram 00 times Medical powder daily. Branch methylnaltr Yes Take by linda exone 2-16 mouth. ity of bromide 14:28: [place] (RELISTOR 49 Medical ORAL) Branch potassium Yes Take by [facility] (POTASSIMIN 2-16 mouth once it y of ORAL) 14:28: now. [address] spironolact Yes 100mg Take 100 U nivers one 100 mg 2-16 mg by ity of tablet 14:28: mouth. [address] cyanocobala Yes 1000ug Inject CH I [...] MG 16:27: mouth Medical tablet 53 nightly. [place] rifAXIMin Yes 1{tbl} Q.5D Take 1 [facility] [...] [facility] tablet 16:27: mouth Medical 53 daily. [place] topiramate Yes 1{tbl} QD Take [address] (TOPAMAX) 1-24 tablet by [facility] 50 MG 16:27: mouth Medical tablet 53 nightly. [place] eszopiclone Yes 2mg Take [address] (LUNESTA) 2 1-24 by mouth Luke s MG tablet 16:27: every Medical 52 night as Center needed. gabapentin Yes 1{capsu Q.5D Take [address] (NEURONTIN) 1-24 le} capsule by Susanna kes 300 MG 16:27: mouth 2 Medical capsule 52 (two) Center times daily. lactulose Yes 1{packe Q.[id number] Take [address] (Kristalose 1-24 t} [id number] packet by Gurpreet ) 20 gram 16:27: 3D mouth 3 Medic al packet 52 (three) Center times daily. azithromyci 0 202- No 500mg QD Take 1 Me thodi n 1-20 01-[address] (ZITHROMAX) 00:00: 05:59 (500 mg Ho spita 500 MG 00 :00 total) by l tablet mouth daily for 3 days. Take first 2 tablets together, then 1 every day until finished. gabapentin 0 Yes 300mg QD Take 300 Me thodi (NEURONTIN) 1-[address] 300 mg 18:28: mouth Hospita capsule 02 nightly as l needed. Takes in addition to scheduled twice daily dosing ondansetron Yes 4mg Q8H Take 4 mg M ethodi ODT -[address] (ZOFRAN-ODT 18:28: every 8 Hos lis ) 4 MG 02 (eight) l disintegrat hours as ing tablet needed for nausea or vomiting. pantoprazol 2021- No 40mg QD Take 40 mg Methodi e 08-[address] (PROTONIX) 18:28: 00:00 daily. Hosp page 40 MG EC 02 :00 l tablet lactulose 2021- No 1{packe Q.25D Take 1 M ethodi (Kristalose 08-25 t} packet by st ) 20 gram 18:28: 00:00 mouth 4 Hosp page packet 50 :00 (four) l times a day. Goal 2-4 bowel movements per day QUEtiapine 2021- No 50mg QD Take 50 mg Methodi (SEROqueL) 08-[address] 50 MG 18:28: 00:00 daily. Hospita tablet 50 :00 l gabapentin 0 Yes 300mg Q.5D Take 300 Me thodi (NEURONTIN) 1-[address] 300 mg 18:28: mouth 2 Hospita capsule 49 (two) l times a day. Also may take 1 additional dose as needed at bedtime spironolact Yes 50mg QD Take 50 mg Methodi one -[address] (ALDACTONE) 18:28: daily. Hosp page 50 MG 49 l tablet cetirizine Yes 10mg QD Take 10 mg M ethodi (ZyrTEC) 10 -[address] MG tablet 18:28: every Hospita 48 morning. l cyanocobala Yes 1000ug Q30D Inject Me thodi min 1,000 1-14 1,[address] mcg/mL 18:28: into the Hospita injection 48 shoulder, l thigh, or buttocks every 30 (thirty) days. riFAXimin 0 Yes 550mg Q.5D Take 550 Met hodi (XIFAXAN) 1-[address] 550 mg 18:28: mouth 2 Hospita tablet 48 (two) l times a day. ubrogepant 2021-0 Yes 100mg Q.5D Take 100 Me thodi (Ubrelvy) 1-[address] 100 mg 18:28: mouth 2 Hospita tablet 48 (two) l times a day as needed (headache) . clonAZEPAM 2021-0 Yes .5mg Q24H Take 0.5 Met hodi (KlonoPIN) 1-[address] 0.5 MG 18:28: mouth Hospita tablet 48 daily as l needed for anxiety. Per [place] Prescript[facility] on Drug Monitoring Program records: Last filled: 11/06/20 Quantity: 30 Days Supply: 30 topiramate 2021-0 Yes 50mg Q.5D Take 50 mg M ethodi (TOPAMAX) 1-[address] 50 MG 18:28: (two) Hospita tablet 48 times a l day. benztropine 2021-0 Yes .25mg Q.5D Take 0.25 Methodi (COGENTIN) 1-[address] 0.5 MG 18:28: mouth 2 Hospita tablet 48 (two) l times a day. primidone 2021-0 Yes 25mg QD Take 25 mg Me thodi (MYSOLINE) 1-[address] 50 MG 18:28: nightly. Hospita tablet 48 l eszopiclone 2021-0 Yes 3mg QD Take 3 mg M ethodi (LUNESTA) 3 1-[address] mg tablet 18:28: nightly. Hosp page 48 Per [facility] Prescripti on Drug Monitoring Program records: Last filled: 08/09/21 Quantity: 30 Days Supply: 30 traMADoL 2021-0 Yes 50mg Q4H Take 50 mg Met hodi (ULTRAM) 50 1-[address] mg tablet 18:28: every 4 Hospi ta 48 (four) l hours as needed for moderate pain. [facility] Last filled: 01/16/21 Quantity: 30 Days Supply: 5 zinc 2021-0 2021- No 1{capsu QD Take 1 Methodi sulfate 11 09-22 le} capsule by st (ZINCATE) 00:00: 05:59 mouth Hospit a 50 mg zinc 00 :00 daily for l (220 mg) 30 days. capsule thiamine 2021-0 2021- No 100mg QD Take 100 Met hodi mononitrate 1-10 01-[address] , vit B1, 10:29: 00:00 mouth Hospit a (B-1) 100 47 :00 daily. l mg tablet QUEtiapine 2021- No 50mg QD Take 50 mg Methodi (SEROquel) 08-[address] 200 MG 10:29: 00:00 nightly. Hospit a tablet 47 :00 l SUMAtriptan Yes [id number] 50mg Q24H Take 1 Methodi (Imitrex) -10 [...] nightly for 30 days. pantoprazol 2021- No [id number] 40mg QD Take 1 Methodi e 08-21 tablet (40 st (PROTONIX) 00:00: 05:59 mg total) H ospita 40 MG EC 00 :00 by mouth l tablet every morning for 30 days. QUEtiapine 2021- No 50mg QD Take 1 Meth erasto (SEROquel) 08-21-10 tablet (50 st 50 MG 00:00: 05:59 [...] 20g Q.25D Take 1 Meth erasto (Kristalose 08-21-10 packet (20 s t ) 20 gram [...] 00:00 Hospita tablet 08 :00 l cyanocobala No 1000ug Take 1,000 Methodi min 08-[address] (VITAMIN 09:52: 00:00 mouth. Hospit a B-12) 1000 53 :00 l MCG tablet benztropine No 1 tablet M ethodi (COGENTIN) 08-[address] 0.5 MG 09:52: 00:00 Orally Hospita tablet 26 :00 Once a day l nitrofurant 2020-08 No 100mg Q.5D Take 1 Me thodi oin, 08-[address] macrocrysta 00:00: 00:00 (100 mg Ho spita l-monohydra 00 :00 total) by l te, mouth 2 (MACROBID) (two) 100 MG times a capsule day for 5 days. eszopiclone 2020-08 No 3mg QD Take 3 mg Methodi (LUNESTA) 3 0- 10-[address] mg tablet 14:16: [...] 220mg QD Take 1 Methodi sulfate 2-11 -[address] (ZINCATE) 00:00: 00:00 (220 mg Hosp page 220 (50) mg 00 :00 total) by l capsule mouth daily for 30 days. eszopiclone No 1mg QD Take 1 mg Methodi (LUNESTA) 1 2- 02-[address] MG tablet 14:27: 00:00 nightly. Hos lis 44 :00 Take l immediatel y before bedtime topiramate No 50mg QD Take 1 Meth erasto (TOPAMAX) 09-02-09 tablet (50 st 50 MG 00:00: 00:00 [...] May cut tablet in 1/2 half brexpiprazo No 2mg QD Take 1 Met hodi [...] day for 30 days. gabapentin No 300mg Q.[id number] Take 1 Methodi (NEURONTIN) 04-[id number] 300 mg 00:00: 00:00 3D (300 mg Hospita capsule 00 :00 total) by l mouth 3 (three) times a day for 30 days. pantoprazol No [id number] 40mg QD Take 1 Methodi e 01-24 tablet (40 st (PROTONIX) 00:00: 00:00 mg total) H ospita 40 MG EC 00 :00 by mouth l tablet every morning. SUMAtriptan No [id number] 50mg Q24H Take 1 Methodi (Imitrex) 15 08-19 tablet (50 st 50 MG 00:00: 00:00 mg total) Hospit a tablet 00 :00 by mouth l daily as needed for migraine for up to 30 doses. May repeat in 2 hours if unresolved . Max dose 200 mg/day eszopiclone Yes 2mg Take 2 mg U nivers 2 mg tablet 03-09 by mouth ity of 16:42: at [place] 13 bedtime. Medical Branch GABAPENTIN Yes Take by Uni vers ORAL 03-09 mouth. ity of 16:42: [place] 13 Medical Branch traMADOL 50 Yes 50mg Take 50 mg Univers mg tablet 03-09 by mouth ity of 16:42: as needed [place] 13 for Pain Medical (scale Branch 7-10). lactulose Yes [id number] 20g Take 1 Un linda (KRISTALOSE 03-09 Packet by ity of ) 20 gram 00:00: mouth 3 [place] packet 00 (three) Medical times Branch daily. ondansetron Yes [id number] 8mg Take 2 Univers 4 mg tablet 4-01 tablets by it y of 00:00: mouth [place] 00 every 8 Medical (eight) Branch hours as needed for Nausea and Vomiting (N/V). butalbital- Yes [id number] 1{capsu Take 1 Univers aspirin-caf 3-25 le} capsule by it y of feine 00:00: mouth [place] 50-325-40 00 every 4 Medical mg per (four) Branch capsule hours as needed for Pain (headache unrelieved wtih other medication s). XIFAXAN 550 2016-08 Yes [id number] TAKE ONE Univers mg tablet 1-27 TABLET BY ity o f 00:00: MOUTH 2 [place] 00 TIMES A Medical DAY Branch PANTOPRAZOL 2016-08 Yes [id number] TAKE ONE Univers E 40 mg EC [...] mouth 3 (three) Medical times Branch daily. furosemide 2015-08 Yes 40mg Take 40 mg U nivers 40 mg 0-10 by mouth. ity of tablet 00:00: [place] [address] [place] [address] Branch Allopurinol Allopurinol Yes Fernando 2 tablets Common [facility] Immunizations Ordered Filled Immunization Date Status Comments [facility] Immunization Name Name Influenza Virus 2021-04-12 Completed Universit y of Vaccine 00:00:00 [facility] SARS-COV-2 COVID-19 2020-12-14 Completed Unive rsity of YANIRA/J&J VACCINE 00:00:00 [facility] Influenza Virus 2018-04-21 Completed Universit y of Vaccine (3+ yrs) 00:00:00 [facility] dical Branch Influenza (IM) 2018-04-21 Completed [facility] Preservative Free 00:00:00 Hospita l Pneumococcal 13 2016-05-08 Completed Universit y of Conjugate, PCV13 00:00:00 [facility] (Prevnar 13) Branch Pneumococcal 2016-05-08 Completed [facility]-Ism Conjugate 13-Valent 00:00:00 Hospi mateo FLUCELVAX QUAD PF 2016-05-[address] 00:00:00 Hospital Vital Signs Vital Name Observation Time Observation Value Comments Source Systolic blood 2021-11-16 18:59:00 111 mm[Hg] Univer sity of pressure [facility] Diastolic blood 2021-11-16 18:59:00 74 mm[Hg] Unive rsity of pressure [facility] Heart rate 2021-11-16 18:59:00 75 /min [facility] Body temperature 2021-11-16 18:59:00 36.67 Georgette Univ ersity of [facility] Body height 2021-11-16 18:59:[address] [facility] Body weight 2021-11-16 18:59:[address] [facility] BMI 2021-11-16 18:59:00 35.87 kg/m2 [facility] HEIGHT 2021-09-02 15:44:00 149.9 cm WEIGHT 2021-09-02 15:44:00 87.091 kg HEIGHT 2021-09-02 15:44:00 149.9 cm WEIGHT 2021-09-02 15:44:00 87.091 kg Systolic blood 2021-09-11 19:42:00 125 mm[Hg] [facility] Diastolic blood 2021-09-11 19:42:00 60 mm[Hg] [facility] Heart rate 2021-09-11 19:42:00 98 /min [facility] Body temperature 2021-09-11 19:42:00 35.67 Georgette [facility] Respiratory rate 2021-09-11 19:42:00 18 /min [facility] Oxygen saturation in 2021-09-11 19:42:00 100 /min [facility] Arterial blood by Medical Ce nter Pulse oximetry Body height 2021-09-02 15:44:00 149.9 cm [facility] Body weight 2021-09-02 15:44:00 87.091 kg [facility] BMI 2021-09-02 15:44:00 38.78 kg/m2 [facility] Systolic blood 2021-08-31 06:30:00 119 mm[Hg] [facility] pressure Diastolic blood 2021-08-31 06:30:00 68 mm[Hg] [facility] pressure Heart rate 2021-08-31 06:30:00 70 /min [facility] Respiratory rate 2021-08-31 06:30:00 16 /min [facility] Oxygen saturation in 2021-08-31 06:30:00 97 /min [facility] Arterial blood by Pulse oximetry Body temperature 2021-08-31 04:04:09 36.83 Georgette [facility] Body height 2021-08-31 04:04:00 149.9 cm [facility] Body weight 2021-08-31 04:04:00 89.359 kg [facility] BMI 2021-08-31 04:04:00 39.79 kg/m2 [facility] Procedures Procedure Date / Time Performing Clinician Source Performed HEPATIC FUNCTION PANEL 2021-09-11 05:33:00 Niya Cartagena [facility] CBC W/PLT COUNT & AUTO 2021-09-11 05:33:[address] [facility] PROTHROMBIN TIME/INR 2021-09-11 05:33:00 KaimNiya [facility] BASIC METABOLIC PANEL (7) 2021-09-11 05:33:00 KaNiya rm on [facility] MAGNESIUM 2021-09-11 05:33[facility]O 2021-09-11 05:33[facility] 2021-09-10 06:52:00 KaimNiya [facility] CBC W/PLT COUNT & AUTO 2021-09-10 06:52:00 KaimNiya [facility] PROTHROMBIN TIME/INR 2021-09-10 06:52:00 KaimHenryNiyazulma White [facility] BASIC METABOLIC PANEL (7) 2021-09-10 06:52:00 Kaim, Niya Allalireza [facility] MAGNESIUM 2021-09-10 06:52:00 [facility] W/[facility]T COUNT & AUTO 2021-09-10 06:52:00 KaimNiya [facility] HEPATIC FUNCTION PANEL 2021-09-09 05:51:00 Kaim Niya [facility] CBC W/PLT COUNT & AUTO 2021-09-09 05:51:00 KaimNiya [facility] PROTHROMBIN TIME/INR 2021-09-09 05:51:00 Kaim Niya Cindy [facility] [facility] BASIC METABOLIC PANEL (7) 2021-09-09 05:51:00 KaimHenryNiya Allis [facility] CBC W/PLT COUNT & AUTO 2021-09-09 05:51:00 Lizzjag Niya [facility] (CELLAVISION MANUAL DIFF) 2021-09-09 05:51:00 LizzjagHenryNiya Shanalireza on [facility] AMMONIA 2021-09-08 10:54:00 Aly Selma Joana [facility] PHOSPHORUS 2021-09-08 05:14:00 Isabella [employer] [facility] HEPATIC FUNCTION PANEL 2021-09-08 05:14:00 Kaim Niya Cindy [facility] CBC W/PLT COUNT & AUTO 2021-09-08 05:14:[address] [facility] PROTHROMBIN TIME/INR 2021-09-08 05:14:00 LizzimNiya [facility] BASIC METABOLIC PANEL (7) 2021-09-08 05:14:00 KaNiya rm on [facility] CBC W/PLT COUNT & AUTO 2021-09-08 05:14:[address] [facility] (CELLAVISION MANUAL DIFF) 2021-09-08 05:14:00 Mitzi Niyalilian Haile on [facility] PHOSPHORUS 2021-09-07 05:37:00 Isabella [employer] [facility] [employer] [facility] HEPATIC FUNCTION PANEL 2021-09-07 05:37:00 [facility] W/PLT COUNT & AUTO 2021-09-07 05:37:[address] [facility] PROTHROMBIN TIME/INR 2021-09-07 05:37:00 Niya Cart[place]a [facility] BASIC METABOLIC PANEL (7) 2021-09-07 05:37:00 Kaim Niaylilian Haile on [facility] CBC W/PLT COUNT & AUTO 2021-09-07 05:37:00 [facility] DIFF) 2021-09-07 05:37:00 KaimNiya [facility] PROTHROMBIN TIME/INR 2021-09-06 06:37:00 Niya [place]a [facility] BASIC METABOLIC PANEL (7) 2021-09-06 06:37:00 Isabella, Mrinalin i [facility] PHOSPHORUS 2021-09-06 06:37:00 Isabella, Giannanalini [facility] PROTHROMBIN TIME/INR 2021-09-05 14:31:00 Niya Cart[place]a [facility] BASIC METABOLIC PANEL (7) 2021-09-05 14:31:00 Isabella, Mrinalin i [facility] PHOSPHORUS 2021-09-05 14:31:00 Isabella, Giannanalini [facility] CBC W/PLT COUNT & AUTO 2021-09-05 14:31:00 Isabella Juveini C [facility] HEPATIC FUNCTION PANEL 2021-09-05 14:31:00 Isabella Giannanalini C [facility] CBC W/PLT COUNT & AUTO 2021-09-05 14:31:00 Isabella Giannanalini C [facility] (CELLAVISION MANUAL DIFF) 2021-09-05 14:31:00 Isabella, [facility] C. DIFFICILE GDH TOXIN 2021-09-04 11:52:00 Jaqueline Vitale [facility] CT ABDOMEN/PELVIS WITH IV 2021-09-04 09:03:00 Mirian Goodman [facility] CONTRAST [facility] CT CHEST WITH IV CONTRAST 2021-09-04 09:03:00 Isabella, Mrinalin i [facility] CBC W/PLT COUNT & AUTO 2021-09-04 04:39:[address] [facility] COMPREHENSIVE METABOLIC 2021-09-04 04:39:00 Lucia Lawrence [facility] MAGNESIUM 2021-09-04 04:39:00 Lucia Lawrence [facility] PHOSPHORUS 2021-09-04 04:39:00 Lucia Lawrence [facility] CBC W/PLT COUNT & AUTO 2021-09-04 04:39:[address] [facility] (CELLAVISION MANUAL DIFF) 2021-09-04 04:39:00 Lucia Lawrence sa [facility] HEPATITIS A ANTIBODY, IGG 2021-09-03 12:02:00 Juve Masonin i [facility] HEPATITIS B CORE ANTIBODY, 2021-09-03 12:02:00 Juve Masoni ni [facility] TOTAL [facility] HEPATITIS B SURFACE 2021-09-03 12:02:00 Juve Masonini [facility] ANTIBODY [facility] HEPATITIS B SURFACE 2021-09-03 12:02:00 Zara Mason [facility] ANTIGEN [facility] HEPATITIS C ANTIBODY 2021-09-03 12:02:00 Zara Mason [facility] CBC W/PLT COUNT & AUTO 2021-09-03 12:01:[address] [facility] COMPREHENSIVE METABOLIC 2021-09-03 12:01:00 Lucia Lawrence [facility] MAGNESIUM 2021-09-03 12:01:00 Lucia Lawrence [facility] PHOSPHORUS 2021-09-03 12:01:00 Lucia Lawrence [facility] PROTHROMBIN TIME/INR 2021-09-03 12:01:00 AndoverJr [facility] Depamao [facility] CBC W/PLT COUNT & AUTO 2021-09-03 12:01:[address] [facility] (CELLAVISION MANUAL DIFF) 2021-09-03 12:01:00 Lucia Lawrence sa [facility] BLOOD CULTURE 2021-09-03 11:59:00 Lucia Lawrence [facility] OVA AND PARASITE 2021-09-02 09:44:00 Troy Awad [facility] GI PATHOGEN PROFILE BY PCR 2021-09-02 09:44:00 Troy Awad [facility] BLOOD CULTURE 2021-09-02 06:03:00 Lucia Lawrence [facility] CBC W/PLT COUNT & AUTO 2021-09-02 06:03:[address] [facility] COMPREHENSIVE METABOLIC 2021-09-02 06:03:00 Lucia Lawrence [facility] MAGNESIUM 2021-09-02 06:03:00 Lucia Lawrence [facility] PHOSPHORUS 2021-09-02 06:03:00 Lucia Lawrence [facility] C-REACTIVE PROTEIN 2021-09-02 06:03:00 Lucia Lawrencessa [facility] CBC W/PLT COUNT & AUTO 2021-09-02 06:03:[address] [facility] (CELLAVISION MANUAL DIFF) 2021-09-02 06:03:00 Lucia Lawrence sa [facility] IRON, TIBC, % SAT. 2021-09-02 06:01:00 Lucia Lawrence [facility] (WITHOUT FERRITIN) [facility] r VITAMIN B12 AND FOLATE 2021-09-02 06:01:00 Lucia Lawrence [facility] CT BRAIN WITHOUT IV 2021-09-02 02:39:00 Lucia Lawrence [facility] CONTRAST [facility] US ABDOMEN LIMITED 2021-09-02 02:09:00 Lucia Lawrence [facility] URINE CULTURE 2021-09-02 01:29:00 Lucia Lawrence [facility] URINALYSIS W/ REFLEX URINE 2021-09-02 01:29:00 Lucia Lawrence [facility] XR CHEST 1 VIEW PORTABLE / 2021-09-02 01:02:[address] [facility] CBC W/PLT COUNT & AUTO 2021-09-01 22:55:[address] [facility] LACTIC ACID, VENOUS 2021-09-01 22:55:00 [facility] 2021-09-01 22:55:00 [facility]EL 2021-09-01 22:55:00 Lucia Lawrence [facility] BASIC METABOLIC PANEL (7) 2021-09-01 22:55:00 Lucia Lawrence [facility] MAGNESIUM 2021-09-01 22:55:00 Lucia Lawrence [facility] PHOSPHORUS 2021-09-01 22:55:00 Lucia Lawrence [facility] CBC W/PLT COUNT & AUTO 2021-09-01 22:55:00 Lucia Lawrence [facility] (CELLAVISION MANUAL DIFF) 2021-09-01 22:55:00 Lucia Lawrence [facility] POCT-GLUCOSE METER 2021-09-01 22:36:00 Dawna Anguiano [facility] CT ABDOMEN PELVIS WO 2021-08-31 05:50:00 [facility] CONTRAST [facility] HC COMPLETE BLD COUNT 2021-08-31 04:21:00 [facility] W/AUTO DIFF [facility] COMPREHENSIVE METABOLIC 2021-08-31 04:21:00 [facility] PANEL [facility] LACTIC ACID, I-STAT 2021-08-31 04:21:00 [facility] ESTIMATED GFR 2021-08-31 04:21:00 [facility] SPIROMETRY, DIFFUSION, 2021-08-25 19:27:26 [facility]UMES, MIPS/MEPS XR CHEST 2 VW 2021-08-25 18:00[facility] 2021-08-25 17:59:[facility] POC [facility]SE 2021-08-25 13:51:00 Jennifer Ghosh Ho spital SALEEM-POSEY VIRUS 2021-08-25 11:08:00 [facility] HC COMPLETE BLD COUNT 2021-08-25 11:08:00 Jennifer Ghosh [facility] W/AUTO DIFF COMPREHENSIVE METABOLIC 2021-08-25 11:08:00 Jennifer Ghosh [facility] PANEL PROTHROMBIN TIME WITH INR 2021-08-25 11:08:00 Jennifer Ghosh [facility] ESTIMATED GFR 2021-08-25 11:08:00 Jennifer Ghosh Ho spital POC GLUCOSE 2021-08-25 03:18:00 Jennifer Ghosh spital POC GLUCOSE 2021-08-25 00:22:00 Jennifer Ghosh Ho spital POC GLUCOSE 2021-08-24 19:43:00 Jennifer Ghoshtal CREATININE LEVEL, URINE, 2021-08-24 18:13:00 Jennifer Ghosh [facility] TIMED PROTEIN, URINE, TIMED 2021-08-24 18:13:00 Jennifer Ghosh [facility] CV SELECTIVE CORONARY 2021-08-24 16:44:00 Cabrera Fierro [facility] ANGIOGRAPHY [place] HC COMPLETE BLD COUNT 2021-08-24 11:01:00 [facility] DIFF [facility] BASIC METABOLIC PANEL 2021-08-24 11:01:00 [facility] HEPATIC FUNCTION PANEL 2021-08-24 11:01:00 [facility] MAGNESIUM LEVEL 2021-08-24 11:01:00 Alma Girard spital [facility] PROTHROMBIN TIME WITH INR 2021-08-24 11:01:00 [facility] ESTIMATED GFR 2021-08-24 11:01:00 Alma Girard spital [facility] POC GLUCOSE 2021-08-24 03:07:00 Jennifer Ghosh Ho spital POC GLUCOSE 2021-08-24 00:11:00 Jennifer Ghosh COVID-19 QUALITATIVE 2021-08-23 22:15:00 Dayo Moeller [facility] RT-PCR POC GLUCOSE 2021-08-23 19:17:00 Jennifer Ghosh spimateo POC GLUCOSE 2021-08-23 14:05:00 Jennifer Ghosh HC COMPLETE BLD COUNT 2021-08-23 11:49:00 [facility] W/AUTO DIFF [facility] BASIC METABOLIC PANEL 2021-08-23 11:49:00 [facility] HEPATIC FUNCTION PANEL 2021-08-23 11:49:00 [facility] MAGNESIUM LEVEL 2021-08-23 11:49:00 Ting Alma Pierson shane [facility] PROTHROMBIN TIME WITH INR 2021-08-23 11:49:00 [facility] ALPHA FETOPROTEIN 2021-08-23 11:49:00 [facility] ALPHA-1 ANTITRYPSIN LEVEL 2021-08-23 11:49:00 [facility] ANTI SMOOTH MUSCLE AB 2021-08-23 11:49:00 [facility] SCREEN C-REACTIVE PROTEIN 2021-08-23 11:49:00 [facility] CANCER ANTIGEN 125 2021-08-23 11:49:00 [facility] CANCER ANTIGEN 19-9 2021-08-23 11:49:00 [facility] CARCINOEMBRYONIC ANTIGEN 2021-08-23 11:49:00 [facility] (CEA) CERULOPLASMIN LEVEL 2021-08-23 11:49:00 [facility] CORTISOL LEVEL, RANDOM 2021-08-23 11:49:00 [facility] CORTISOL, FREE BY 2021-08-23 11:49:00 [facility] ED/LC-MS/MS CYTOMEGALOVIRUS AB, IGG 2021-08-23 11:49:00 [facility] CYTOMEGALOVIRUS AB, IGM 2021-08-23 11:49:00 [facility] DRUG KIM 9, SER/THAIS, SCRN 2021-08-23 11:49:00 [facility] W/RFLX TO CONF FERRITIN LEVEL 2021-08-23 11:49:00 [facility] FIBRINOGEN 2021-08-23 11:49:00 [facility] HEPATITIS A ANTIBODY IGM 2021-08-23 11:49:00 [facility] HEPATITIS A ANTIBODY TOTAL 2021-08-23 11:49:00 [facility] HEPATITIS B CORE ANTIBODY 2021-08-23 11:49:00 [facility] TOTAL HEPATITIS B SURFACE 2021-08-23 11:49:00 [facility] ANTIBODY HEPATITIS B SURFACE 2021-08-23 11:49:00 [facility] ANTIGEN HEPATITIS C ANTIBODY 2021-08-23 11:49:00 [facility] HIV AG/AB COMBINATION 2021-08-23 11:49:00 [facility] HIV-1 RNA, QUALITATIVE TMA 2021-08-23 11:49:00 [facility] HLA TRANSPLANT EVALUATION 2021-08-23 11:49:00 [facility] LIPID PANEL 2021-08-23 11:49:00 [facility] BARBITURATES, S/P, QUANT 2021-08-23 11:49:00 [facility] PARTIAL THROMBOPLASTIN 2021-08-23 11:49:00 [facility] TIME (PTT) PHOSPHATIDYLETHANOL, BLOOD 2021-08-23 11:49:00 [facility] PHOSPHORUS LEVEL 2021-08-23 11:49:[address] [facility] PREALBUMIN LEVEL 2021-08-23 11:49:[address] [facility] SERUM ELECTROPHORESIS 2021-08-23 11:49:00 [facility] SYPHILIS TREPONEMA SCREEN 2021-08-23 11:49:00 [facility] WITH RPR CONFIRMATION (REVERSE ALGORITHM) T3, FREE 2021-08-23 11:49:00 [facility] TB T-SPOT 2021-08-23 11:49:00 [facility] TOTAL IRON BINDING 2021-08-23 11:49:00 [facility] CAPACITY ZINC LEVEL, SERUM 2021-08-23 11:49:00 [facility] ESTIMATED GFR 2021-08-23 11:49:00 Alma Girardtal [facility] SINGLE ANTIGEN BEADS 2021-08-23 11:49:00 [facility] C1Q CLASS 1 & 2 ANTIBODY 2021-08-23 11:49:[address] [facility] CT CHEST WO CONTRAST 2021-08-23 04:25:00 [facility] POC GLUCOSE 2021-08-23 02:55:00 Jennifer Ghosh US CAROTID DUPLEX 2021-08-23 02:40:00 [facility] BILATERAL TTE COMPLETE, WO CONTRAST, 2021-08-22 23:47:00 [facility] W AGITATED SALINE ([id number]) US ABDOMEN COMPLETE 2021-08-22 22:30:00 [facility] ECG 12-LEAD 2021-08-22 21:31:09 [facility] POC GLUCOSE 2021-08-22 13:43:00 Jennifer Ghosh HC COMPLETE BLD COUNT 2021-08-22 10:59:00 [facility] W/AUTO DIFF [facility] BASIC METABOLIC PANEL 2021-08-22 10:59:00 [facility] HEPATIC FUNCTION PANEL 2021-08-22 10:59:00 [facility] MAGNESIUM LEVEL 2021-08-22 10:59:00 Alma Girard Ho spital [facility] PHOSPHORUS LEVEL 2021-08-22 10:59:00 Alma Girard H ospital [facility] PROTHROMBIN TIME WITH INR 2021-08-22 10:59:00 [facility] 2021-08-22 10:59:00 Alma Girard spital [facility] POC GLUCOSE 2021-08-22 03:06:00 Jennifer Ghosh Mu-Ism Ho spital POC GLUCOSE 2021-08-22 00:27:00 Jennifer Ghosh Mu-Ism Ho spital POC GLUCOSE 2021-08-21 19:09:00 Jennifer Ghosh Ho spital POC GLUCOSE 2021-08-21 13:46:00 Alma Girard Ho spital [facility] HC COMPLETE BLD COUNT 2021-08-21 10:56:00 Ting Pierson [facility] W/AUTO DIFF [facility] BASIC METABOLIC PANEL 2021-08-21 10:56:00 Ting Pierson [facility] HEPATIC FUNCTION PANEL 2021-08-21 10:56:00 [facility] 2021-08-21 10:56:00 Alma Girard spital [facility] PHOSPHORUS LEVEL 2021-08-21 10:56:00 Alma Girard ospital [facility] PROTHROMBIN TIME WITH INR 2021-08-21 10:56:00 [facility] EST[facility] 2021-08-21 10:56:00 Alma Girard spital [facility] POC GLUCOSE 2021-08-21 03:20:00 Alma Girard Ho spital [facility] POC GLUCOSE 2021-08-20 14:56:00 Jennifer Ghosh Ho spital HC COMPLETE BLD COUNT 2021-08-20 10:57:00 Ting Pierson [facility] W/AUTO DIFF [facility] BASIC METABOLIC PANEL 2021-08-20 10:57:00 Ting Pierson [facility] HEPATIC FUNCTION PANEL 2021-08-20 10:57:00 [facility] MAGNESIUM LEVEL 2021-08-20 10:57:00 Alma Girard PHOSPHORUS LEVEL 2021-08-20 10:57:00 Alma Girard ospimateo Self PROTHROMBIN TIME WITH INR 2021-08-20 10:57:00 [facility] 2021-08-20 10:57:00 Alma Girard spimateo [facility] POC GLUCOSE 2021-08-20 02:42:00 Ting Alma Pierson spital [facility] POC GLUCOSE 2021-08-19 20:04:00 Alma Girard HC COMPLETE BLD COUNT 2021-08-19 11:38:00 [facility] BASIC METABOLIC PANEL 2021-08-19 11:38:00 [facility] 2021-08-19 11:38:00 [facility] MAGNESIUM LEVEL 2021-08-19 11:38:00 Alma Girard PHOSPHORUS LEVEL 2021-08-19 11:38:00 Alma Girard ospimateo Self PROTHROMBIN TIME WITH INR 2021-08-19 11:38:00 [facility] ESTIMATED GFR 2021-08-19 11:38:00 Alma Girardalo POC GLUCOSE 2021-08-19 03:14:00 Alma Girardalo POC GLUCOSE 2021-08-18 23:30:00 Alma Girard spimateo [facility] POC GLUCOSE 2021-08-18 15:37:00 Alma Girard URINE CULTURE 2021-08-18 12:53:00 Alma Girard URINALYSIS SCREEN AND 2021-08-18 11:31:00 [facility] MICROSCOPY, WITH REFLEX TO [facility] CULTURE LACTIC ACID LEVEL, SEPSIS 2021-08-18 10:21:00 [facility] - NOW AND REPEAT 2X EVERY 3 HOURS HC COMPLETE BLD COUNT 2021-08-18 10:21:00 [facility] W/AUTO DIFF [facility] BASIC METABOLIC PANEL 2021-08-18 10:21:00 [facility] HEPATIC FUNCTION PANEL 2021-08-18 10:21:00 [facility] MAGNESIUM LEVEL 2021-08-18 10:21:00 [facility] PHOSPHORUS LEVEL 2021-08-18 10:21:00 [facility] PROT[facility] TIME WITH INR 2021-08-18 10:21:00 [facility] ESTIMATED GFR 2021-08-18 10:21:00 [facility] Ho [facility] LACTIC ACID LEVEL, SEPSIS 2021-08-18 07:56:00 [facility] - NOW AND REPEAT 2X EVERY 3 HOURS BLOOD CULTURE, AEROBIC & 2021-08-18 05:00:00 [facility] ANAEROBIC [facility] ECG 12-LEAD 2021-08-18 04:24:[address] [facility] [address] ABDOMEN PELVIS WO 2021-08-18 04:19:03 [facility] CONTRAST CT HEAD WO CONTRAST 2021-08-18 04:18:21 [facility] LACTIC ACID LEVEL, SEPSIS 2021-08-18 03:37:00 [facility] - NOW AND REPEAT 2X EVERY 3 HOURS B NATRIURETIC PEPTIDE 2021-08-18 03:37:00 [facility] PROTHROMBIN TIME WITH INR 2021-08-18 03:20:00 [facility] AMMONIA LEVEL 2021-08-18 03:20:00 [facility] TROPONIN T 2021-08-18 03:20:00 [facility] XR CHEST 1 VW PORTABLE 2021-08-18 03:14:19 [facility] HC COMPLETE BLD COUNT 2021-08-18 03:03:00 [facility] W/AUTO DIFF COMPREHENSIVE METABOLIC 2021-08-18 03:03:00 [facility] PANEL ESTIMATED GFR 2021-08-18 03:03:00 [facility] RESPIRATORY PATHOGEN PANEL 2021-08-18 03:03:00 [facility] WITH COVID-19 RT-PCR ECG ED PRELIMINARY 2021-08-18 02:54:33 [facility] INTERPRETATION COVID-19 QUALITATIVE 2021-08-11 05:31:00 [facility] RT-PCR [facility] COMPREHENSIVE METABOLIC 2021-08-11 05:30:00 [facility] PANEL [facility] HC COMPLETE BLD COUNT 2021-08-11 05:30:00 [facility] W/AUTO DIFF [facility] LACTIC ACID, I-STAT 2021-08-11 05:30:00 [facility] ESTIMATED GFR 2021-08-11 05:30:00 [facility] ECG 12-LEAD 2021-08-11 05:15:35 [facility] URINALYSIS 2021-08-11 05:00:00 [facility] XR CHEST 1 VW PORTABLE 2021-08-11 04:27:00 [facility] LACTIC ACID, I-STAT 2021-06-28 22:37:00 Romero Limon [facility] URINALYSIS 2021-06-28 21:45:00 Romero Limon Ho spital HC COMPLETE BLD COUNT 2021-06-28 20:01:00 Romero Limon [facility] W/AUTO DIFF PROTHROMBIN TIME WITH INR, 2021-06-28 20:01:00 Romero Limon [facility] I-STAT COMPREHENSIVE METABOLIC 2021-06-28 20:01:00 Romero Limon [facility] PANEL LACTIC ACID, I-STAT 2021-06-28 20:01:00 [facility] RATE 2021-06-28 20:01:00 Romero Limon [facility] ESTIMATED GFR 2021-06-28 20:01:00 Romero Limon [facility] COVID-19 QUALITATIVE 2021-06-28 20:01:00 Romero Limon [facility] RT-PCR BLOOD CULTURE, AEROBIC & 2021-06-28 20:01:00 Romero Limon [facility] ANAEROBIC HC COMPLETE BLD COUNT 2021-06-21 11:20:00 Dinakar, [facility] W/AUTO DIFF Erika BASIC METABOLIC PANEL 2021-06-21 11:20:00 Dinakar, [facility] HEPATIC FUNCTION PANEL 2021-06-21 11:20:00 Dinakar, [facility] MAGNESIUM LEVEL 2021-06-21 11:20:00 Dinakar, [facility] PROT[facility]BIN TIME WITH INR 2021-06-21 11:20:00 Dinakar, [facility] PHOSPHORUS LEVEL 2021-06-21 11:20:00 Dinakar, [facility] Mu-Ism H ospital [facility] ESTIMATED GFR 2021-06-21 11:20:00 Dinakar, [facility] PHOSPHATIDYLETHANOL, BLOOD 2021-06-21 11:20:00 [facility] URINE DRUGS OF ABUSE 2021-06-21 10:11:00 [facility] SCREEN URINALYSIS SCREEN AND 2021-06-21 10:10:00 [facility] MICROSCOPY, WITH REFLEX TO CULTURE URINE CULTURE 2021-06-21 10:10:00 [facility] COVID-19 SEROLOGY PATIENT 2021-06-20 17:52:00 Dinakar, [facility] SURVEILLANCE [facility] COVID-19 ANTI-SPIKE IGG 2021-06-20 17:52:00 Dinakar, [facility] ANTIBODY TITER [facility] HC COMPLETE BLD COUNT 2021-06-20 11:03:00 Dinakar, [facility] W/AUTO DIFF [facility] BASIC METABOLIC PANEL 2021-06-20 11:03:00 Dinakar, [facility] HEPATIC FUNCTION PANEL 2021-06-20 11:03:00 Dinakar, [facility] MAGNESIUM LEVEL 2021-06-20 11:03:00 Dinakar, Pierce Duckworth spital [facility] PROTHROMBIN TIME WITH INR 2021-06-20 11:03:00 Dinakar, [facility] PHOSPHORUS LEVEL 2021-06-20 11:03:00 Dinakar, Pierce Arcos ospital [facility] ESTIMATED GFR 2021-06-20 11:03:00 Dinakachristiana, Pierce lynn [facility] XR ABDOMEN 1 VW PORTABLE 2021-06-20 00:11:00 [facility] AMMONIA LEVEL 2021 11:27:00 Jennifer Ghoshtal HC COMPLETE BLD COUNT 2021 11:24:00 Jennifer Ghosh [facility] W/AUTO DIFF PROTHROMBIN TIME WITH INR 2021 11:24:00 Jennifer Ghosh [facility] COMPREHENSIVE METABOLIC 2021 11:24:00 Jennifer Ghosh [facility] PANEL PHOSPHORUS LEVEL 2021 11:24:00 Jennifer Ghosh ospital MAGNESIUM LEVEL 2021 11:24:00 Jennifer Ghosh spital HEMOGLOBIN A1C 2021 11:24:00 Jennifer Ghosh spital THYROID STIMULATING 2021 11:24:00 [facility] HORMONE T4 2021 11:24:00 [facility] spital VITAMIN D 25 HYDROXY LEVEL 2021 11:24:00 [facility] ESTIMATED GFR 2021 11:24:00 [facility] spital LACTIC ACID, I-STAT 2021 01:31:00 [facility] COVID-19 QUALITATIVE 2021 01:21:00 Diana Bangura [facility] RT-PCR CLOSTRIDIUM DIFFICILE 2021 00:30:00 [facility] TOXIN ENTERIC BACTERIAL PANEL 2021 00:30:00 [facility] 2021 00:09:00 [facility] COMPREH[facility]IVE [facility]ABOLIC 2021-06-18 22:51:00 [facility] PANEL AMYLASE LEVEL 2021-06-18 22:51:00 [facility] ESTIMATED GFR 2021-06-18 22:51:00 [facility] HC COMPLETE BLD COUNT 2021-06-18 21:51:00 [facility] W/AUTO DIFF COMPREHENSIVE METABOLIC 2021-06-18 21:51:00 [facility] PANEL LACTIC ACID, I-STAT 2021-06-18 21:51:00 [facility] AMYLASE LEVEL 2021-06-18 21:51:00 [facility] 2021-06-18 21:51:00 [facility] AMMONIA LEVEL 2021-06-18 21:47:00 [facility] HC COMPLETE BLD COUNT 2021-06-02 09:45:00 [facility] W/AUTO DIFF PROTHROMBIN TIME WITH INR 2021-06-02 09:45:00 [facility] BASIC METABOLIC PANEL 2021-06-02 09:45:00 [facility] HEPATIC FUNCTION PANEL 2021-06-02 09:45:00 [facility] PHOSPHORUS LEVEL 2021-06-02 09:45:00 [facility] MAGNESIUM LEVEL 2021-06-02 09:45:00 [facility] ospital ESTIMATED GFR 2021-06-02 09:45:00 [facility] ospital US ABDOMINAL LIMITED 2021-06-01 21:06:20 Joana Ling [facility] NEED PHYS 2021-06-01 14:32:45 [facility] [facility] SKILL,DX OR RX HC COMPLETE BLD COUNT 2021-06-01 10:30:00 [facility] W/AUTO DIFF PROTHROMBIN TIME WITH INR 2021-06-01 10:30:00 [facility] BASIC METABOLIC PANEL 2021-06-01 10:30:00 [facility] HEPATIC FUNCTION PANEL 2021-06-01 10:30:00 [facility] PHOSPHORUS LEVEL 2021-06-01 10:30:00 [facility] MAGNESIUM LEVEL 2021-06-01 10:30:00 [facility] HEMOGLOBIN A1C 2021-06-01 10:30:00 [facility] THYROID STIMULATING 2021-06-01 10:30:00 [facility] HORMONE T4 2021-06-01 10:30:00 [facility] VITAMIN D 25 HYDROXY LEVEL 2021-06-01 10:30:00 [facility] ZINC LEVEL, SERUM 2021-06-01 10:30:00 [facility] ALPHA FETOPROTEIN 2021-06-01 10:30:00 [facility] AMMONIA LEVEL 2021-06-01 10:30:00 [facility] ESTIMATED GFR 2021-06-01 10:30:00 [facility] PHOSPHATIDYLETHANOL, BLOOD 2021-06-01 10:30:00 [facility] URINE CULTURE 2021-06-01 02:48:00 [facility] BLOOD CULTURE, AEROBIC & 2021-06-01 02:43:00 [facility] ANAEROBIC BLOOD CULTURE, AEROBIC & 2021-06-01 02:42:00 [facility] ANAEROBIC URINALYSIS SCREEN AND 2021-06-01 02:40:00 [facility] MICROSCOPY, WITH REFLEX TO CULTURE URINE DRUGS OF ABUSE 2021-06-01 02:40:00 [facility] SCREEN URIC ACID LEVEL 2021-06-01 02:38:00 [facility] PROTHROMBIN TIME WITH INR 2021-06-01 02:38:00 [facility] PHOSPHORUS LEVEL 2021-06-01 02:38:00 [facility] PARTIAL THROMBOPLASTIN 2021-06-01 02:38:00 [facility] TIME (PTT) MAGNESIUM LEVEL 2021-06-01 02:38:00 [facility] HEPATIC FUNCTION PANEL 2021-06-01 02:38:00 [facility] LDH 2021-06-01 02:38:00 [facility] LACTIC ACID LEVEL 2021-06-01 02:38:00 [facility] FIBRINOGEN 2021-06-01 02:38:00 [facility] HC COMPLETE BLD COUNT 2021-06-01 02:38:00 [facility] W/AUTO DIFF BASIC METABOLIC PANEL 2021-06-01 02:38:00 [facility] AMMONIA LEVEL 2021-06-01 02:38:00 [facility] ESTIMATED GFR 2021-06-01 02:38:00 Heriberto York ospimateo COVID-19 SEROLOGY PATIENT 2021-06-01 02:38:00 Heriberto York [facility] SURVEILLANCE COVID-19 ANTI-SPIKE IGG 2021-06-01 02:38:00 Heriberto York [facility] ANTIBODY TITER ECG 12-LEAD 2021-06-01 01:06:10 Heriberto York ospimateo XR ABDOMEN 1 VW PORTABLE 2021-06-01 01:06:00 Heriberto Yrok [facility] XR CHEST 1 VW PORTABLE 2021-06-01 01:02:00 Heriberto York [facility] COVID-19 QUALITATIVE 2021-06-01 00:37:00 Heriberto York [facility] RT-PCR HC COMPLETE BLD COUNT 2021-05-27 10:09:00 [facility]FF [facility] BASIC METABOLIC PANEL 2021-05-27 10:09:00 [facility] HEPATIC FUNCTION PANEL 2021-05-27 10:09:00 [facility] MAGNESIUM LEVEL 2021-05-27 10:09:00 Alma Girard [place] PHOSPHORUS LEVEL 2021-05-27 10:09:00 Alma Girard PROTHROMBIN TIME WITH INR 2021-05-27 10:09:00 [facility] ESTIMATED GFR 2021-05-27 10:09:00 Alma Girard VENOUS BLOOD GAS 2021-05-26 23:37:00 Lucia Faustin HC COMPLETE BLD COUNT 2021-05-26 09:02:00 [facility] W/AUTO DIFF [facility] PROTHROMBIN TIME WITH INR 2021-05-26 09:02:00 [facility]-19 SEROLOGY PATIENT 2021-05-26 09:02:00 Abe Part[facility] SURVEILLANCE Tom SMEAR REVIEW 2021-05-26 09:02:00 Alma Girard PHOSPHATIDYLETHANOL, BLOOD 2021-05-26 09:02:00 Palak Mayorga [facility] COVID-19 ANTI-SPIKE IGG 2021-05-26 09:02:00 Abe Partida [facility] ANTIBODY TITER Tom BASIC METABOLIC PANEL 2021-05-26 09:00:00 [facility] 2021-05-26 09:00:00 [facility] MAGNESI[facility] L[facility] 2021-05-26 09:00:00 Alma Girard PHOSPHORUS LEVEL 2021-05-26 09:00:00 Ting Alma Pierson ospimateo Self ALPHA FETOPROTEIN 2021-05-26 09:00:00 Emma [facility] ZINC LEVEL, SERUM 2021-05-26 09:00:00 Mukesh [facility] ESTIMATED GFR 2021-05-26 09:00:00 Alma Girard URINALYSIS SCREEN AND 2021-05-25 23:41:00 [facility] MICROSCOPY, WITH REFLEX TO [place] CULTURE URINE DRUGS OF ABUSE 2021-05-25 23:41:00 [facility] URINE CULTURE 2021-05-25 23:41:00 Alma Girard US HEPATIC 2021-05-25 20:43:26 Alma Girard US ABDOMINAL DOPPLER 2021-05-25 20:40:00 [facility] COMPLETE BLD COUNT 2021-05-25 18:10:00 [facility] W/AUTO DIFF [place] SMEAR REVIEW 2021-05-25 18:10:00 Alma Girard VENIPUNC NEED PHYS 2021-05-25 15:59:39 Tristin Hunt [facility] SKILL,DX OR RX CBC WITH PLATELET AND 2021-05-25 13:57:00 [facility] Dangelo [facility] DIFFERENTIAL [place] COMPREHENSIVE METABOLIC 2021-05-25 13:57:00 [facility] PANEL [place] ESTIMATED GFR 2021-05-25 13:57:00 Alma Girard spimateo [place] LACTIC ACID, I-STAT 2021-05-25 00:58:00 Romero Limon [facility] COVID-19 QUALITATIVE 2021-05-25 00:00:00 Romero Limon [facility] RT-PCR CT ABDOMEN PELVIS WO 2021-05-24 23:16:57 Romero Limon [facility] CONTRAST URINALYSIS 2021-05-24 22:19:00 Romero Limon HC COMPLETE BLD COUNT 2021-05-24 22:13:00 Romero Limon [facility] W/AUTO DIFF COMPREHENSIVE METABOLIC 2021-05-24 22:13:00 Romero Limon [facility] PANEL AMYLASE LEVEL 2021-05-24 22:13:00 Romero Limon LACTIC ACID, I-STAT 2021-05-24 22:13:00 Romero Limon [facility] ESTIMATED GFR 2021-05-24 22:13:00 Romero Limon BLOOD CULTURE, AEROBIC & 2021-05-24 22:00:00 Romero Limon [facility] ANAEROBIC CBC HEMOGRAM 2020-11-23 05:55:00 Alma Girard PROTHROMBIN TIME WITH INR 2020-11-23 05:55:00 [facility] COMPREHENSIVE METABOLIC 2020-11-23 05:55:00 [facility] PANEL [place] ESTIMATED GFR 2020-11-23 05:55:00 Alma Girard [place] COVID-19 QUALITATIVE 2020-11-23 01:57:00 Wild Kovacs [facility] RT-PCR Tomiwa LACTIC ACID, I-STAT 2020-11-23 01:40:00 Romero Limon [facility] CT HEAD WO CONTRAST 2020-11-22 23:20:00 Romero Limon [facility] HC COMPLETE BLD COUNT 2020-11-22 22:53:00 Romero Limon [facility] W/AUTO DIFF COMPREHENSIVE METABOLIC 2020-11-22 22:53:00 Romero Limon [facility] PANEL LACTIC ACID, I-STAT 2020-11-22 22:53:00 Romero Limon [facility] AMMONIA LEVEL 2020-11-22 22:53:00 Romero Limon Ho spital VENOUS BLOOD GAS 2020-11-22 22:53:00 Romero Limon H ospital ESTIMATED GFR 2020-11-22 22:53:00 Romero Limon spital XR ABDOMEN ACUTE INC CHEST 2020-11-02 22:51:00 Cliff Levy [facility] 1V ESTIMATED GFR 2020-11-02 21:55:00 [facility] HC COMPLETE BLD COUNT 2020-11-02 21:55:00 [facility] W/AUTO DIFF COMPREHENSIVE METABOLIC 2020-11-02 21:55:00 [facility] PANEL PROTHROMBIN TIME WITH INR 2020-11-02 21:55:00 [facility] COVID-19 QUALITATIVE 2020-11-02 21:05:00 [facility] RT-PCR NM BRAIN SPECT W I 123 2020-10-26 19:02:00 Cliff Levy [facility] DATSCAN HC COMPLETE BLD COUNT 2020-10-24 10:15:00 [facility] W/AUTO DIFF BASIC METABOLIC PANEL 2020-10-24 10:15:00 [facility] HEPATIC FUNCTION PANEL 2020-10-24 10:15:00 [facility] MAGNESIUM LEVEL 2020-10-24 10:15:00 [facility] PHOSPHORUS LEVEL 2020-10-24 10:15:00 [facility] PROTHROMBIN TIME WITH INR 2020-10-24 10:15:00 [facility] HEMOGLOBIN A1C 2020-10-24 10:15:00 [facility] THYROID STIMULATING 2020-10-24 10:15:00 [facility] HORMONE T4 2020-10-24 10:15:00 [facility] VITAMIN D 25 HYDROXY LEVEL 2020-10-24 10:15:00 [facility] ZINC LEVEL, SERUM 2020-10-24 10:15:00 [facility] ALPHA FETOPROTEIN 2020-10-24 10:15:00 [facility] ESTIMATED GFR 2020-10-24 10:15:00 [facility] URINE DRUGS OF ABUSE 2020-10-24 10:00:00 [facility] SCREEN LACTIC ACID LEVEL, SEPSIS 2020-10-24 06:20:00 [facility] - NOW AND REPEAT 2X EVERY 3 HOURS LACTIC ACID LEVEL, SEPSIS 2020-10-24 02:25:00 [facility] - NOW AND REPEAT 2X EVERY 3 HOURS XR CHEST 1 VW PORTABLE 2020-10-24 00:08:00 Rehrer, [facility] BLOOD CULTURE, AEROBIC & 2020-10-23 23:31:00 Rehrer, [facility] ANAEROBIC RESPIRATORY PATHOGEN PANEL 2020-10-23 23:31:00 Rehrer, [facility] WITH COVID-19 RT-PCR COMPREHENSIVE METABOLIC 2020-10-23 23:31:00 Rehrer, [facility] PANEL PHOSPHORUS LEVEL 2020-10-23 23:31:00 Rehrer, [facility] MAGNESIUM LEVEL 2020-10-23 23:31:00 Rehrer, [facility] LACTIC ACID LEVEL, SEPSIS 2020-10-23 23:31:00 [facility] - NOW AND REPEAT 2X EVERY 3 HOURS LIPASE LEVEL 2020-10-23 23:31:00 Rehrer, [facility] ESTIMATED GFR 2020-10-23 23:31:00 Rehrer, [facility] HC COMPLETE BLD COUNT 2020-10-23 23:20:00 Rehrer, [facility] W/AUTO DIFF PROTHROMBIN TIME WITH INR 2020-10-23 23:20:00 Rehrer, [facility] PARTIAL THROMBOPLASTIN 2020-10-23 23:20:00 Rehrer, [facility] TIME (PTT) AMMONIA LEVEL 2020-10-23 23:20:00 Rehrer, [facility] HC COMPLETE BLD COUNT 2020-10-10 00:05:00 [facility] W/AUTO DIFF COMPREHENSIVE METABOLIC 2020-10-10 00:05:00 [facility] PANEL LACTIC ACID, I-STAT 2020-10-10 00:05:00 [facility] AMMONIA LEVEL 2020-10-10 00:05:00 [facility] ESTIMATED GFR 2020-10-10 00:05:00 [facility] URINALYSIS 2020-10-09 23:32:00 [facility] ECG 12-LEAD 2020-10-09 23:18:11 [facility] HC COMPLETE BLD COUNT 2020-09-21 10:28:00 [facility] W/AUTO DIFF BASIC METABOLIC PANEL 2020-09-21 10:28:00 [facility] HEPATIC FUNCTION PANEL 2020-09-21 10:28:00 [facility] MAGNESIUM LEVEL 2020-09-21 10:28:00 [facility] PHOSPHORUS LEVEL 2020-09-21 10:28:00 [facility] PROTHROMBIN TIME WITH INR 2020-09-21 10:28:00 [facility] MISCELLANEOUS REFERRAL 2020-09-21 10:28:00 Annette Mayorga [facility] TEST VITAMIN B12 LEVEL 2020-09-21 10:28:00 [facility] FOLATE LEVEL 2020-09-21 10:28:00 [facility] ESTIMATED GFR 2020-09-21 10:28:00 [facility] COVID-19 QUALITATIVE 2020-09-20 20:51:00 PerezRobby [facility] RT-PCR Gabriel HC COMPLETE BLD COUNT 2020-09-20 12:08:00 [facility] W/AUTO DIFF BASIC METABOLIC PANEL 2020-09-20 12:08:00 [facility] HEPATIC FUNCTION PANEL 2020-09-20 12:08:00 [facility] MAGNESIUM LEVEL 2020-09-20 12:08:00 [facility] PHOSPHORUS LEVEL 2020-09-20 12:08:00 [facility] PROTHROMBIN TIME WITH INR 2020-09-20 12:08:00 [facility] HEMOGLOBIN A1C 2020-09-20 12:08:00 [facility] THYROID STIMULATING 2020-09-20 12:08:00 [facility] HORMONE T4 2020-09-20 12:08:00 [facility] VITAMIN D 25 HYDROXY LEVEL 2020-09-20 12:08:00 [facility] ZINC LEVEL, SERUM 2020-09-20 12:08:00 [facility] ALPHA FETOPROTEIN 2020-09-20 12:08:00 [facility] ESTIMATED GFR 2020-09-20 12:08:00 Heriberto York [facility]spital CT CERVICAL SPINE WO 2020-09-20 06:50:26 [facility] PELVIS WO CONTRAST 2020-09-20 06:50:16 Marcel [facility] Renee CT HEAD WO CONTRAST 2020-09-20 06:50:07 Bonny Rod [facility] CRITICAL CARE, E/M 2020-09-20 04:05:41 Marcel [facility] 30-74 MINUTES Renee URINE CULTURE 2020-09-20 04:00:00 Bonny Rod Ho spital [place] URINALYSIS SCREEN AND 2020-09-20 04:00:00 Marcel [facility] MICROSCOPY, WITH REFLEX TO Renee CULTURE URINE DRUGS OF ABUSE 2020-09-20 04:00:00 Bonny Rod [facility] SCREEN Renee MAGNESIUM LEVEL 2020-09-20 04:00:00 Bonny Rod Ho spital [place] TROPONIN 2020-09-20 04:00:00 Bonny Rod Ho spital [place] XR KNEE 3 VW LEFT 2020-09-20 02:06:29 Marcel [facility] XR KNEE 3 VW RIGHT 2020-09-20 02:06:09 Marcel [facility] XR SHOULDER 2+ VW RIGHT 2020-09-20 02:05:46 Bonny Rod [facility] HC COMPLETE BLD COUNT 2020-09-20 02:05:00 Marcel [facility] W/AUTO DIFF Renee PROTHROMBIN TIME WITH INR 2020-09-20 02:05:00 Bonny Rod [facility] PARTIAL THROMBOPLASTIN 2020-09-20 02:05:00 [facility] ([facility] [place] COMPREHENSIVE METABOLIC 2020-09-20 02:05:00 [facility] [place] TROPONIN 2020-09-20 02:05:00 Bonny Rod [facility] Renee B NATRIURETIC PEPTIDE 2020-09-20 02:05:00 Bonny Rod [facility] Renee AMMONIA LEVEL 2020-09-20 02:05:00 Bonny Rod [facility] Renee ALCOHOL LEVEL, BLOOD 2020-09-20 02:05[facility]00 [facility] ESTIM[facility] GFR 2020-09-20 02:05:00 Bonny Rod [facility] Renee Plan of Care Planned Activity Planned Date Details Comments Source Future Scheduled 2021-09-12 COLONOSCOPY SCREENING [facility] Test 12:13:11 [code = COLONOSCOPY SCREENING] Future Scheduled 2021-09-12 SHINGLES VACCINES Method [facility] Test 12:13:11 (#1) [code = SHINGLES VACCINES (#1)] Future Scheduled 2021-09-12 BREAST CANCER [facility] Test 12:13:11 SCREENING [code = BREAST CANCER SCREENING] Future Scheduled 2021-09-12 COVID-19 VACCINE (2 - Me [facility] Test 12:13:11 Booster for Yanira series) [code = COVID-19 VACCINE (2 - Booster for Yanira series)] Future Scheduled 2021-09-12 INFLUENZA VACCINE Method [facility] Test 12:13:11 [code = INFLUENZA VACCINE] Future Scheduled 2021-09-12 Screening for [facility] Test 12:13:11 malignant neoplasm of cervix (procedure) [code = 217371215] Future Scheduled 2021-08-[address] [facility] Test 00:00:00 (12+) [code = Medical Center DEPRESSION SCREENING (12+)] Future Scheduled 2021-04-[address] [facility] Test 00:00:00 (#1) [code = Medical Center INFLUENZA VACCINE (#1)] Future Scheduled 2016-01-[address] [facility] Test 00:00:00 WELLNESS (YEAR 2 or Medical Center FIRST YEAR if no IPPE) [code = MEDICARE ANNUAL WELLNESS (YEAR 2 or FIRST YEAR if no IPPE)] Future Scheduled 2011 SHINGLES VACCINES ([address] [facility] Test 00:00:00 of 2) [code = Medical Center SHINGLES VACCINES (1 of 2)] Future Scheduled [address] [facility] Test 00:00:00 (procedure) [code = Medical Center 66151003] Future Scheduled [address] [facility] Test 00:00:00 malignant neoplasm of [facility] cervix (procedure) [code = 995478520] Future Scheduled 1980 DTAP/TDAP/TD VACCINES [facility] Test 00:00:00 (1 - Tdap) [code = Medical C enter DTAP/TDAP/TD VACCINES (1 - Tdap)] Future Scheduled 1973 COVID-19 VACCINE (1) [facility] Test 00:00:00 [code = COVID-[address] VACCINE (1)] Future Scheduled [address] [facility] Test 00:00:00 malignant neoplasm of [facility] breast (procedure) [code = 068995090] Future Scheduled [address] [facility] Test 00:00:00 malignant neoplasm of [facility] colon (procedure) [code = 772676164] Encounters Start End Encounter Admission Attending Care Care Encounter Source Date/Time Date/Time Type Type Clinicians Facility Department ID 2021-09-06 Outpatient Díaz, [facility] Common 13:49:19 Fernando 48620 [facility] 2021-09-06 Outpatient Díaz, [facility] Common 13:45:16 Fernando 06227 [facility] 2021-09-06 Outpatient Díaz, [facility] [id number] Common 12:49:41 Fernando 37979 [facility] 2021-09-06 Outpatient Díaz, [facility] [id number] Common 12:05:14 Fernando 47910 [facility] 2021-09-06 Outpatient Díaz, [facility] [id number] Common 12:03:44 Fernando 80913 [facility] 2021-09-06 Outpatient Díaz, [facility] [id number] Common 11:42:32 Fernando 71941 [facility] 2021-09-06 Outpatient Díaz, STLMLC ST[facility] [id number] Common 11:33:04 [facility] 23239 [facility] 2022-01-10 2022-01-10 Outpatient GALATI, [facility] [id number] [place] 00:00:00 00:00:[address] CALOS [address] 2022-01-10 2022-01-10 Outpatient GALATI, [facility] [id number] [place] 00:00:00 00:00:00 CALOS [address] 2021-11-30 2021-11-30 ambulatory STLMLC STLMLC [id number] Common 00:00:00 00:00:00 [facility] 2021-11-16 2021-11-16 Office Jay [facility] [id number] [facility] 13:30:00 14:32:33 Visit Luisana PORRAS 350.1.13.10 i Irma 4.2.7.2.686 Kalyani SKINNER [phone] Ar dical NAL [address] [place] [address] 2021-10-27 2021-11-04 Inpatient TING [facility] [id number] [place] 00:00:00 00:00:00 Ava PIERSON [facility] [address] [facility] 2021-10-16 2021-10-16 ambulatory STLMLC STLMLC [id number] Common 00:00:00 00:00:00 [facility] 2021-10-13 2021-10-13 ambulatory STLMLC STLMLC [id number] Common 00:00:00 00:00:00 [facility] 2021-09-25 2021-09-25 ambulatory STLMLC STLMLC [id number] Common 00:00:00 00:00:00 [facility] 2021-09-01 2021-09-16 Inpatient ER RAFAEL, [facility] [id number] [facility] 22:15:00 12:13:00 KENDY 2021-09-04 2021-09-04 ambulatory STLMLC STLMLC [id number] Common 00:00:00 00:00:00 Spirit - [facility] 2021-09-01 2021-09-01 Documentat Viviane [facility] [id number] [facility] 00:00:00 00:00:00 ion [facility] 2021-09-01 2021-09-01 Telephone Cristofer, 1.2.840.1 [id number] Methodi 00:00:00 00:00:[address] [place] [address] Matthew 3.430.2.7 Hospit a .3.830323 l .8 2021-08-30 2021-08-31 Emergency DAY [facility] [id number] [place] 00:00:00 00:00:[address] 2021-08-30 2021-08-30 Travel 1.2.840.1 [id number] Methodi 00:00:00 00:00:[address] 3.430.2.7 0.2.7.3.698 Ho spita .3.946144 084.8 l .8 2021-08-29 2021-08-29 [facility] [id number] [place] 00:00:00 00:00:[address] CAL[address] 2021-08-29 2021-08-29 Travel 1.2.840.1 1.2.651.079 [id number] Methodi 00:00:00 00:00:[address] 3.430.2.7 0.2.7.3.698 Ho spita .3.616471 084.8 l .8 2021-08-17 2021-08-25 [facility] Orlando Balderrama 1.2.840.1 [id number] Methodi 19:50:00 18:28:00 Encounter Baylee Girard 38803.1.[address] Jennifer Ghosh 3.430.2.7 Hos lis .3.196169 l .8 2021-08-252021-08-25 Travel 1.2.840.1 1.2.157.120 [id number] Methodi 00:00:00 00:00:[address] 3.430.2.7 0.2.7.3.698 Ho spita .3.024957 084.8 l .8 2021-08-24 2021-08-24 Surgery [facility], 1.2.840.1 [id number] Methodi 09:00:00 10:25:[address] 3.430.2.7 Hospit a .3.445968 l .8 2021-08-24 2021-08-24 Documentat Delcano, 1.2.840.1 [id number] Methodi 00:00:00 00:00:00 lupillo [place] [address]90.[address] Matthew 3.430.2.7 Hospit a .3.004936 l .8 2021-08-23 2021-08-23 Documentat Delcano, 1.2.840.1 [id number] Methodi 00:00:00 00:00:00 lupillo [place] [address] Matthew 3.430.2.7 Hospit a .3.374436 l .8 2021-08-21 2021-08-21 Social Jaimes, 1.2.840.1 [id number] Methodi 12:37:39 13:37:39 Work Scott [address]288.1.[address] 3.430.2.7 Hospit a .3.595444 l .8 2021-08-21 2021-08-21 [facility] 1.2.840.1 [id number] Methodi 00:00:00 00:00:00 lupillo [place] [address] Matthew 3.430.2.7 Hospit a .3.268296 l .8 2021-08-21 2021-08-21 Telephone Pops, 1.2.840.1 [id number] Methodi 00:00:00 00:00:[address] 3.430.2.7 Hospit a .3.137223 l .8 2021-08-18 2021-08-18 Travel 1.2.840.1 1.2.183.396 [id number] Methodi 00:00:00 00:00:[address] 3.430.2.7 0.2.7.3.698 Ho spita .3.889683 084.8 l .8 2021-08-10 2021-08-11 Emergency Adali, 1.2.840.1 [id number] Methodi 20:25:00 01:30:[address] Rylee 3.430.2.7 Ho spita .3.785869 l .8 2021-08-10 2021-08-10 Travel 1.2.840.1 1.2.129.275 [id number] Methodi 00:00:00 00:00:[address] 3.430.2.7 0.2.7.3.698 Ho spita .3.396185 084.8 l .8 2021-07-28 2021-07-28 ambulatory STLMLC STLMLC [id number] Common 00:00:00 00:00:00 [facility] 2021-07-25 2021-07-25 Telephone Stephanie, 1.2.840.1 [id number] Methodi 00:00:00 00:00:[address] 3.430.2.7 Hospit a .3.467610 l .8 2021-07-24 2021-07-24 Telephone Pops, 1.2.840.1 [id number] Methodi 00:00:00 00:00:[address] 3.430.2.7 Hospit a .3.532242 l .8 2021-07-12 2021-07-12 ambulatory STLMLC STLMLC [id number] Common 00:00:00 00:00:00 [facility] 2021-06-29 2021-06-29 Travel 1.2.840.1 1.2.637.295 7816 [id number] Methodi 00:00:00 00:00:[address] 3.430.2.7 0.2.7.3.698 Ho spita .3.631901 084.8 l .8 2021-06-28 2021-06-28 Emergency Nuszen, 1.2.840.1 [id number] 2100 193593 Methodi 13:22:00 16:56:00 Romero Sheets [address]74.1.[address] 3.430.2.7 Hospit a .3.418088 l .8 2021-06-22 2021-06-22 Behavioral John, 1.2.840.1 [id number] 535 [id number] Methodi 00:00:00 00:00:00 [facility] Kaleb 96776.1.[address] Johnny 3.430.2.7 Hospit a .3.890509 l .8 2021-06-18 2021-06-21 [facility] Diana Bangura 1.2.840.1 [id number] Methodi 15:30:00 14:22:00 Encounter Jennifer Ghosh 71102.1.[address] [place] 3.430.2.7 Hospita .3.300856 l .8 2021-06-18 2021-06-18 Travel 1.2.840.1 1.2.548.030 1834 829511 Methodi 00:00:00 00:00:00 32868.1.1 350.1.13.43 112 st 3.430.2.7 0.2.7.3.698 Ho spita .3.656841 084.8 l .8 2021-06-16 2021-06-16 Orders Teri, 1.2.840.6 [id number] Methodi 00:00:00 00:00:00 Only Eusebia Maya 33310.1.[address] 3.430.2.7 Hospit a .3.394744 l .8 2021-06-08 2021-06-08 Clinical 1.2.840.1 [id number] Methodi 12:04:06 13:04:[address] 3.430.2.7 Hospit a .3.652483 l .8 2021-06-05 2021-06-05 Telephone John, 1.2.840.1 [id number] 2100 [id number] Methodi 00:00:00 00:00:[address] Johnny 3.430.2.7 Hospit a .3.870907 l .8 2021-05-31 2021-06-02 [facility], 1.2.840.1 [id number] [place] 00:00:00 00:00:00 Encounter HERIBERTO 14348.1.1 [address].7 [address] .3.630271 .8 2021-05-31 2021-05-31 Travel 1.2.840.1 1.2.631.368 9894 [id number] Methodi 00:00:00 00:00:[address] 3.430.2.7 0.2.7.3.698 Ho spita .3.691422 084.8 l .8 2021-05-24 2021-05-27 [facility] Romero Limon 1.2.840.1 [id number] Methodi 16:35:00 16:49:00 Encounter Baylee Girard 50758.1.[address] Pierce Marshall 3.430.2.7 Hospita .3.728249 l .8 2021-05-24 2021-05-24 Travel 1.2.840.1 1.2.460.636 0653 [id number] Methodi 00:00:00 00:00:[address] 3.430.2.7 0.2.7.3.698 [facility]84[facility]8 [facility] .8 2021-05-23 2021-05-23 Outpatient STLMLC STLMLC [id number] Common 00:00:00 00:00:00 [facility] 2021-05-19 2021-05-19 Outpatient STLMLC STLMLC [id number] Common 00:00:00 00:00:00 [facility] 2021-05-01 2021-05-01 Outpatient STLMLC STLMLC [id number] Common 00:00:00 00:00:00 [facility] 2021-04-26 2021-04-26 Outpatient STLMLC STLMLC [id number] Common 00:00:00 00:00:00 [facility] 2021-04-26 2021-04-26 Outpatient STLMLC STLMLC [id number] Common 00:00:00 00:00:00 [facility] 2021-04-26 2021-04-26 Outpatient STLMLC STLMLC [id number] Common 00:00:00 00:00:00 [facility] 2021-01-13 2021-01-13 Outpatient STLMLC STLMLC [id number] Common 00:00:00 00:00:00 [facility] 2020-12-13 2020-12-13 Outpatient STLMLC STLMLC [id number] Common 00:00:00 00:00:00 [facility] 2020-11-28 2020-11-28 Patient Cynthiat, 1.2.840.1 [id number] Methodi 00:00:00 00:00:00 Outreach Bia 64438.1.[address] 3.430.2.7 Hospit a .3.736144 l .8 2020-11-25 2020-11-25 Patient Cynthiat, 1.2.840.1 [id number] [id number] Methodi 00:00:00 00:00:00 Outreach Bia 46541.1.[address] 3.430.2.7 Hospit a .3.777693 l .8 2020-11-24 2020-11-24 Patient Randal 1.2.840.1 [id number] [id number] Methodi 00:00:00 00:00:00 Outreach Bia 08933.1.[address] 3.430.2.7 Hospit a .3.458627 l .8 2020-11-22 2020-11-23 Emergency Wild Kovacs 1.2.840. 1 [id number] Methodi 17:29:00 16:26:00 Baylee Girard 91050.1.[address] 3.430.2.7 Hospit a .3.310557 l .8 2020-11-22 2020-11-22 Travel 1.2.840.1 1.2.043.699 9485 [id number] Methodi 00:00:00 00:00:[address] 3.430.2.7 0.2.7.3.698 Ho spita .3.350480 084.8 l .8 2020-11-17 2020-11-17 Outpatient STLMLC STLMLC [id number] Common 00:00:00 00:00:00 [facility] 2020-11-02 2020-11-02 [facility] Mildred, Cliff ChuLaurel 1.2.840.1 [id number] Methodi 16:45:00 23:59:00 Encounter Calos Garcia 16671.1.[address] 3.430.2.7 Hospit a .3.576087 l .8 2020-11-02 2020-11-02 Lab Jose 1.2.840.1 [id number] Methodi 16:00:31 16:05:31 Calos [address] 19531.1.[address] 3.430.2.7 Hospit a .3.328865 l .8 2020-11-02 2020-11-02 Travel 1.2.840.1 1.2.756.690 0415 [id number] Methodi 00:00:00 00:00:[address] 3.430.2.7 0.2.7.3.698 Ho spita .3.509383 084.8 l .8 2020-10-26 2020-10-26 [facility], 1.2.840.1 [id number] [id number] Methodi 12:51:36 23:59:00 Encounter Cliff Marion 77309.1.[address] 3.430.2.7 Hospit a .3.526081 l .8 2020-10-26 2020-10-26 [facility], 1.2.840.1 [id number] [id number] Methodi 08:10:06 12:50:00 Encounter Cliff Marion 36455.1.[address] 3.430.2.7 Hospit a .3.786462 l .8 2020-10-26 2020-10-26 Travel 1.2.840.1 1.2.400.165 9123 [id number] Methodi 00:00:00 00:00:[address] 3.430.2.7 0.2.7.3.698 Ho spita .3.273900 084.8 l .8 2020-10-23 2020-10-24 [facility] 1.2.840.1 [id number] Methodi 17:57:00 14:46:00 Encounter Heriberto [place] 13353.1.[address] Baylee Girard [facility].7 [facility] .3.418205 l .8 2020-10-13 2020-10-13 Travel 1.2.840.1 1.2.207.591 0112 [id number] Methodi 00:00:00 00:00:[address] 3.430.2.7 0.2.7.3.698 Ho spita .3.601049 084.8 l .8 2020-10-12 2020-10-12 Transcribe Mildred, 1.2.840.1 [id number] Methodi 00:00:00 00:00:00 Orders Cliff Marion 28689.1.[address] 3.430.2.7 Hospit a .3.680026 l .8 2020-10-11 2020-10-11 Outpatient STLMLC STLC [id number] Common 00:00:00 00:00:00 [facility] 2020-10-09 2020-10-09 Emergency Azevedo, 1.2.840.1 [id number] Methodi 16:28:00 19:29:[address] Gus 3.430.2.7 Hospit a .3.322166 l .8 2020-10-03 2020-10-03 Outpatient STLMLC STLC [id number] Common 00:00:00 00:00:00 [facility] 2020-09-19 2020-09-21 [facility] 1.2.840.1 [id number] Methodi 16:55:00 14:27:00 Encounter Heriberto [place] 25694.1.[address] Jennifer Ghosh 3.430.2.7 Hos lis .3.981106 l .8 2020-09-15 2020-09-15 Transcribe Jose, 1.2.840.1 [id number] Methodi 00:00:00 00:00:00 Orders Calos Feng 27577.1.[address] 3.430.2.7 Hospit a .3.911520 l .8 2020-09-14 2020-09-14 Outpatient STLMLC STLMLC [id number] Common 00:00:00 00:00:00 [facility] 2020-08-31 2020-09-[address] [facility] [id number] [place] [address] 00:00:00 00:00:00 [facility] [address] 2020-08-10 2020-08-13 Inpatient [place], [facility] 012 [id number] [place] 00:00:00 00:00:00 HERIBERTO [address] 2020-08-09 2020-08-09 Emergency YING, [facility] 064 [id number] 75 [place] 00:00:00 00:00:00 ROMERO [address] 2020-08-08 2020-08-08 Emergency ELLE, [facility] 064 [id number] 08 [place] 00:00:00 00:00:00 NOBLE [address] 2020-07-27 2020-07-27 Outpatient STLMLC STLMLC [id number] Common 00:00:00 00:00:00 [facility] 2020-07-18 2020-07-18 Outpatient [facility] [id number] [place] 00:00:00 00:00:00 996 Method i 2020-07-04 2020-07-07 Inpatient JENNIFER GHOSH [facility]4 [id number] [place] 00:00:00 00:00:00 529 Method i 2020-06-28 2020-06-28 Outpatient STLMLC STLMLC [id number] Common 00:00:00 00:00:00 [facility] 2020-06-20 2020-06-20 Outpatient STLMLC STLMLC [id number] Common 00:00:00 00:00:00 [facility] 2020-05-30 2020-06-03 Inpatient JENNIFER GHOSH [facility] 064 [id number] [place] 00:00:00 00:00:00 431 Method i 2020-05-27 2020-05-27 Outpatient YALAMANCHIL [facility] [id number] [place] 00:00:00 00:00:00 I, YIFAN [address] 2020-05-20 2020-05-20 Outpatient STLMLC STLMLC [id number] Common 00:00:00 00:00:00 [facility] 2020-05-13 2020-05-17 Inpatient MCCARTAN, [facility]4 [id number] [place] 00:00:00 00:00:00 MERCY 422 Method i 2020-04-13 2020-04-21 Inpatient YOJANA, [facility] 064 [id number] [place] 00:00:00 00:00:00 JUNO [address] 2020-04-13 2020-04-13 Out[facility] [id number] Common 16:02:00 16:02:[address] [facility] 2020-04-13 2020-04-13 Out[facility] [id number] Common 09:33:00 09:33:[address] [facility] 2020-04-05 2020-04-05 Outpatient [facility] 32 [id number] Common 09:10:00 09:10:[address] [facility] 2020-04-04 2020-04-04 Outpatient [facility] 32 [id number] Common 10:58:00 10:58:[address] [facility] 2020-04-04 2020-04-04 Outpatient [facility] [id number] Common 10:00:00 10:00:[address] [facility] 2020-03-17 2020-03-19 Inpatient [facility] 064 [id number] [place] 00:00:00 00:00:00 Ben PIERSON Method i [facility] 2020-03-16 2020-03-16 Out[facility] [id number] Common 11:12:00 11:12:[address] [facility] 2020-03-14 2020-03-14 Outpatient JACQUELIN [facility] [id number] [place] 00:00:00 00:00:00 EBONY [address] 2020-03-10 2020-03-10 Out[facility] [id number] Common 13:18:00 13:18:[address] [facility] 2020-03-07 2020-03-07 Outpatient [facility] 31 [id number] Common 16:07:00 16:07:[address] [facility] 2020-03-04 2020-03-04 Outpatient [facility] 30 [id number] Common 11:00:00 11:00:[address] [facility] 2020-03-04 2020-03-04 Outpatient [facility] 30 [id number] Common 11:00:00 11:00:[address] [facility] 2020-03-04 2020-03-04 Outpatient MEAGAN, [facility] [id number] [place] 00:00:00 00:00:00 JAYASIMHA 578 Meth erasto 2020-02-18 2020-02-21 Inpatient [place], [facility] 064 [id number] [place] 00:00:00 00:00:00 HERIBERTO 304 Method i 2020-01-18 2020-01-20 Inpatient DINAKAR, [facility] [id number] [place] 00:00:00 00:00:00 PIERCE 881 Method i 2020-01-07 2020-01-11 Inpatient [place], [facility] 064 [id number] [place] 00:00:00 00:00:00 HERIBERTO 087 Method i 2019-12-29 2019-12-29 Outpatient [facility] 30 [id number] Common 07:03:00 07:03:[address] [facility] 2019-12-23 2019-12-25 Inpatient TING [facility] 064 [id number] [place] 00:00:00 00:00:00 PIERSON, 540 Method i BAYLEE 2019-12-23 2019-12-23 Outpatient JACQUELIN, [facility] [id number] [place] 00:00:00 00:00:00 AHMED 960 Method i 2019-12-22 2019-12-22 [facility] 1.2.840.114 [id number] 66 14:08:03 14:56:41 Visit [facility] 350.1.13.10 Surgical 4.2.7.2.686 Specialti [id number] 198 [place] 2019-10-12 2019-10-15 Inpatient [place], [facility] 012 [id number] [place] 00:00:00 00:00:00 HERIBERTO 906 Method i 2019-09-01 2019-09-03 Inpatient [place], [facility] [id number] [place] 00:00:00 00:00:00 HERIBERTO [address] 2019-07-20 2019-07-20 Outpatient [facility] [id number] Common 14:02:00 14:02:[address] [facility] 2019-07-16 2019-07-16 Outpatient [facility] [id number] Common 13:15:00 13:15:[address] [facility] 2019-06-16 2019-06-18 Inpatient [place], [facility] [id number] [place] 00:00:00 00:00:00 HERIBERTO 382 Method i 2019-05-07 2019-05-08 Outpatient DARCY, UMAR [facility] [id number] [place] 00:00:00 00:00:00 691 Method i 2019-04-23 2019-04-23 Outpatient GALATI, [facility] [id number] [place] 00:00:00 00:00:00 CALOS 089 Method i 2019-04-23 2019-04-23 Outpatient JACQUELIN, [facility] [id number] [place] 00:00:00 00:00:00 AHMED [address] 2019-04-15 2019-04-15 Out[facility] [id number] Common 14:19:00 14:19:[address] [facility] 2019-04-09 2019-04-09 Outpatient [facility] [id number] Common 14:00:00 14:00:[address] [facility] 2018-09-09 2018-09-09 Outpatient [facility] [id number] Common 14:45:00 14:45:[address] [facility] 2018-04-15 2018-04-15 Outpatient [facility] [id number] Common 12:02:00 12:02:[address] [facility] 2018-02-19 2018-02-19 Outpatient [facility] [id number] Common 15:08:00 15:08:00 t [place] Spir it [employer] [facility] 2018-01-24 2018-01-24 Outpatient Irma [facility] 13 [id number] Common 11:15:00 11:15:[address] [facility] Results Test Description Test Time Test Comments Results Result Comments Source SARS-CoV-2 (COVID-19) RNA [Presence] in Respiratory sp ecimen by 2021-10-28 04:55:57 GUSTAVO with probe detection Test Item Value Reference Range Interpretation Comme nts SARS-CoV-2 (COVID-19) RNA [Presence] in Respiratory specimen by Not detected GUSTAVO with probe detection (test code = 36991-5) 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 (test code = Un known 74428-2) Whether the patient has symptoms related to condition of interest U nknown (test code = 33547-8) Whether the patient was hospitalized for condition of interest Unkn own (test code = 33942-3) Whether the patient was admitted to intensive care unit (ICU) for U nknown condition of interest (test code = 81769-0) Whether patient resides in a congregate care setting (test code = U nknon 95818-8) status (test code = 46305-1) Unknown Date and time of symptom onset (test code = 36137-4) Unknown SARS-CoV-2 (COVID-19) RNA [Presence] in Respiratory specimen by GUSTAVO with probe [id number] 01:48:29 Test Item Value Reference Range Interpretation Comments SARS-CoV-2 (COVID-19) RNA Not detected [Presence] in Respiratory specimen by GUSTAVO with probe detection (test code = 48573-5) 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 employed in a Unknown healthcare setting (test code = 43517-0) Whether the patient has symptoms Unknown related to condition of interest (test code = 92563-2) Whether the patient was Unknown hospitalized for condition of interest (test code = 46501-8) Whether the patient was admitted Unknown to intensive care unit (ICU) for condition of interest (test code = 20724-2) Whether patient resides in a Unknown congregate care setting (test code = 34947-3) status (test code = Unknown 33271-0) Date and time of symptom onset Unknown (test code = 28982-2) CT, [id number] 08:50:00Unlisted Reason for Exam - Click Yes and Enter Reason Below->YesUnlisted Reason for Exam->diarrhea. abdominal pain. C dif colitis.Is this for enterography?->NoWill this procedure require oral c ontrast?->NoCAM[facility]REGORY : 1960 Sex: FFINAL [...] MDReport Verified Date/Time: 09/15/2021 08:50:57 BASIC METABOLIC [id number] 07:34:36 Test Item Value Reference Range Interpretation [...] S NOT APPLICABLE FOR DIALYSIS PATIEN TS. Gate Technician ID - EOSpecimen moderately ictericHEPATIC FUNCTION [id number] 07:29:08 Test Item Value Reference Range Interpretation [...] Specimen slightly (test code = 347) hemolyzed Gate Technician ID - EOSpecsundeepn moderately ictericPROTHROMBIN TIME/[id number] 06:46:58 Test Item Value Reference Range Interpretation Comments PROTIME (BEAKER) 22.1 seconds 11.9-14.2 H (test code = 759) INR (BEAKER) (test 1.96 See_Comment [Automat ed message] code = 370) The system [employer] generated this result transmitted ref erence range: [...] = 2801) CBC W/PLT COUNT & AUTO [id number] 10:18:58 Test Item Value Reference Range Interpretation [...] (BEAKER) (test code = 2801) BASIC METABOLIC [id number] 08:06:00 Test Item Value Reference Range Interpretation [...] S NOT APPLICABLE FOR DIALYSIS PATIEN TS. Gate Technician ID - MARLON Ferrera moderately ictericHEPATIC FUNCTION [id number] 08:06:00 Test Item Value Reference Range Interpretation [...] (test code = 19 U/L 6-55 347) Gate Technician ID Ajay Ferrera moderately ictericPROTHROMBIN TIME/[id number] 07:51:15 Test Item Value Reference Range Interpretation Comments PROTIME (BEAKER) 20.6 seconds 11.9-14.2 H (test code = 759) INR (BEAKER) (test 1.80 See_Comment [Automat ed message] code = 370) The system [employer] generated this result transmitted ref erence range: <=5.90. The reference range was not used to int erpret this result as normal/abnormal . RECOMMENDED COUMADIN/WARFARIN INR THERAPY RANGESSTANDARD DOSE: 2.0 - 3.0 Includes: PROPHYLAXIS forvenous thrombosis, systemic embolization; TREATMENT for venous thrombosis and/or pulmonary embolus.HIGH RISK: Target INR is 2.5-3.5 for patients with mechanical heart valves.HEPATIC FUNCTION [id number] 07:41:30 Test Item Value Reference Range Interpretation [...] (test code = 21 U/L 6-55 347) Gate Technician ID - PIAYA LSpecimekorin moderately ictericBASIC METABOLIC [id number] 07:41:29 Test Item Value Reference Range Interpretation [...] S NOT APPLICABLE FOR DIALYSIS PATIEN TS. Gate Technician ID - PIAYA LSpecimen moderately ictericPROTHROMBIN TIME/[id number] 07:34:58 Test Item Value Reference Range Interpretation [...] PERCENT (BEAKER) (test code = 2801) VITAMIN [id number] 07:00:04 Test Item Value Reference Range Interpretation Comments VITAMIN B12 (BEAKER) (test code = > pg/mL 213-816 H 774) Gate Technician ID Ajya FRANK WBASIC METABOLIC [id number] 06:43:51 Test Item Value Reference Range Interpretation [...] S NOT APPLICABLE FOR DIALYSIS PATIEN TS. Gate Technician ID - ZAC WOperator ID - MARLON LSpecimen slightly ictericVITAMIN D, [id number] 05:27:33 Test Item Value Reference Range Interpretation Comments VITAMIN D 25-OH (BEAKER) (test code 4.4 ng/mL 6.6-49.9 L = 2764) Effective 05/22/2017: Reference Range ChangeNew: 6.6-49.9 ng/mL Previous: 13.0-47.8 ng/mLRecommended Vitamin D Target Range: 30.0-40.0 ng/mLOperator ID Ajay MASON LC-REACTIVE [id number] 05:23:46 Test Item Value Reference Range Interpretation Comments C-REACTIVE PROTEIN (BEAKER) (test 1.00 mg/dL 0.00-0.50 H code = 676) Gate Technician ID - ZAC [id number] 05:23:45 Test Item Value Reference Range Interpretation Comments MAGNESIUM (BEAKER) (test code = 1.6 mg/dL 1.6-2.6 627) Gate Technician ID - ZAC WHEPATIC FUNCTION [id number] 05:23:45 Test Item Value Reference Range Interpretation [...] (test code = 17 U/L 6-55 347) Gate Technician ID - ZAC WSpecimen slightly ictericPROTHROMBIN TIME/[id number] 04:53:27 Test Item Value Reference Range Interpretation Comments PROTIME (BEAKER) 22.4 seconds 11.9-14.2 H (test code = 759) INR (BEAKER) (test 2.00 See_Comment [Automat ed message] code = 370) The system [employer] generated this result transmitted ref erence range: [...] (BEAKER) (test code = 2801) Basic Metabolic [id number] 08:26:03 Test Item Value Reference Range Interpretation Comments Sodium (test code = 137 meq/L 998-869 3199-2) Potassium (test code 3.5 meq/L 3.5-5.1 = 2823-3) Chloride (test code = 109 meq/L 98-107 H 2075-0) CO2 (test code = 24 meq/L 22-29 2028-9) BUN (test code = 13 mg/dL 7-21 3094-0) Creatinine (test code 0.73 mg/dL 0.57-1.25 = 2160-0) Glucose (test code = 85 mg/dL 70-105 2345-7) Calcium (test code = 7.7 mg/dL 8.4-10.2 L 19150-7) EGFR (test code = 81 mL/min/1.73 [place] [address]-8) NOT ACCURATE CREATININE CLEARANCE IN PREDICTING GLOMERULAR FILTRATION RATE . ESTIMATED GFR I S NOT APPLICABLE FOR DIALYSIS PATIENTS. REJI (test code = REJI) Gate Technician ID - PIRADHA Davistor ID - DBSpecimen slightly icteric Lab Interpretation Abnormal (test code = 20952-2) [facility] [id number] 08:26:03 Test Item Value Reference Range Interpretation [...] S NOT APPLICABLE FOR DIALYSIS PATIEN TS. Gate Technician ID - MARLON [place] ID - DBSpecimen slightly ictericHepatic function [id number] 07:24:45 Test Item Value Reference Range Interpretation Comments Protein, Total (test 4.9 See_Comment L [Autom ated code = 2885-2) message] The system which generated this result transmitted reference range : 6.0 - 8.3 gm/dL . The reference range was not used to interpr et this result as normal/abnormal . Albumin (test code = 2.2 g/dL 3.5-5.0 L 44020-9) Total Bilirubin (test 4.0 mg/dL 0.2-1.2 H code = 1974-2) Bilirubin, Direct 1.5 mg/dL 0.1-0.5 H (test code = 1967-7) Alkaline Phosphatase 111 U/L 40-150 (test code = 6768-6) AST (test code = 53 U/L 5-34 H 1920-8) ALT (test code = 17 U/L 6-55 1742-6) REJI (test code = REJI) Gate Technician ID - MARLON LSpecnicole slightly icteric Lab Interpretation Abnormal (test code = 15911-2) [facility] 07:24[facility]45 Test Item Value Reference Range Interpretation Comments Magnesium (test code = 1.7 mg/dL 1.6-2.6 27986-4) REJI (test code = REJI) Gate Technician ID Ajay MASON L Lab Interpretation (test Normal code = 09062-1) [facility]2022-01-31 07:24:45 Test Item Value Reference Range Interpretation Comments MAGNESIUM (BEAKER) (test code = 1.7 mg/dL 1.6-2.6 627) Gate Technician ID Ajay MASON LHEPATIC FUNCTION [id number] 07:24:45 Test Item Value Reference Range Interpretation [...] (test code = 17 U/L 6-55 347) Gate Technician ID - MARLON Ferrera slightly ictericProthrombin time/[id number] 06:40:57 Test Item Value Reference Interpretation Comments Range Protime (test code = 22.5 See_Comment H [Autom ated 1702-2) message] The system which generated this result transmitted reference range : 11.9 - 14.2 seconds. The reference range was not used to interpret this result as normal/abnormal . INR (test code = 2.01 See_Comment [Automated 4771-6) message] The system which generated this result [...] valves. Lab Interpretation Abnormal (test code = 87017-5) [facility] Center[facility]/[id number] 06:40:57 Test Item Value Reference Range Interpretation Comments PROTIME (BEAKER) 22.5 seconds 11.9-14.2 H (test code = 759) INR (BEAKER) (test 2.01 See_Comment [Automat ed message] code = 370) The system [employer] generated this result transmitted ref erence [...] See_Comment H [A utomated message] The system [employer] generated this result transmitted ref erence range: 3.5 - 10 .5 K/L. The refe rence range was not u sed to interpret this result as normal/abnor mal. RBC (test code = 789-8) 2.76 See_Comment L [Au tomated message] The system [employer] generated this result transmitted ref erence range: 3.93 - 5 .22 M/L. The refe rence range was not u sed to interpret this result as normal/abnor mal. MCHC (test code = 786-4) 31.5 See_Comment L [A utomated message] The system [employer] generated this result transmitted ref erence range: [...] L [Aut omated message] 777-3) The system [employer] generated this result transmitted ref erence range: 150 - 45 0 K/CU MM. The referen ce range was not u sed to interpret this result as normal/abnor mal. MPV (test code = 9.6 fL 9.4-12.3 45448-2) nRBC (test code = 413) 0 See_Comment [Aut omated message] The system [employer] generated this result transmitted ref erence range: [...] H [Aut omated message] 670) The system [employer] generated this result transmitted ref erence range: 1.56 - 6 .13 K/L. The refe rence range was not u sed to interpret this result as normal/abnor mal. # Lymphs (test code = 1.18 See_Comment [Auto mated message] 414) The system [employer] generated this result transmitted ref erence range: 1.18 - 3 .74 K/L. The refe rence range was not u sed to interpret this result as normal/abnor mal. # Monos (test code = 0.64 See_Comment H [Autom ated message] 415) The system [employer] generated this result transmitted ref erence range: 0.24 - 0 .36 K/L. The refe rence range was not u sed to interpret this result as normal/abnor mal. # Eos (test code = 416) 0.31 See_Comment [Au tomated message] The system [employer] generated this result transmitted ref erence range: 0.04 - 0 .36 K/L. The refe rence range was not u sed to interpret this result as normal/abnor mal. # Baso (test code = 417) 0.02 See_Comment [A utomated message] The system [employer] generated this result transmitted ref erence range: 0.01 - 0 .08 K/L. The refe rence range was not u sed to interpret this result as normal/abnor mal. Immature 1 % 0-1 Granulocytes-Relative (test code = 2801) Lab Interpretation (test Abnormal code = 41957-7) [facility] W/PLT COUNT & AUTO [id number] 06:36:06 Test Item Value Reference Range Interpretation [...] (BEAKER) (test code = 2801) BASIC METABOLIC [id number] 09:04:28 Test Item Value Reference Range Interpretation [...] S NOT APPLICABLE FOR DIALYSIS PATIEN TS. Gate Technician ID - DBSpecimen moderately vdgkzwxBDPBTEAQI9866-46-23 08:26:10 Test Item Value Reference Range Interpretation Comments MAGNESIUM (BEAKER) (test code = 1.8 mg/dL 1.6-2.6 627) Gate Technician ID - DBHEPATIC FUNCTION [id number] 08:26:10 Test Item Value Reference Range Interpretation [...] (test code = 17 U/L 6-55 347) Gate Technician ID - DBSpecsundeepn moderately ictericPROTHROMBIN TIME/[id number] 07:14:13 Test Item Value Reference Range Interpretation Comments PROTIME (BEAKER) 23.1 seconds 11.9-14.2 H (test code = 759) INR (BEAKER) (test 2.08 See_Comment [Automat ed message] code = 370) The system [employer] generated this result transmitted ref erence range: [...] (BEAKER) (test code = 2801) BASIC METABOLIC [id number] 09:04:18 Test Item Value Reference Range Interpretation [...] S NOT APPLICABLE FOR DIALYSIS PATIEN TS. Gate Technician ID - DBOperator ID - DBSpecimen moderately ictericHEPATIC FUNCTION [id number] 07:53:06 Test Item Value Reference Range Interpretation [...] (test code = 16 U/L 6-55 347) Gate Technician ID - DBSpecimen moderately ictericManual Oumsnzufohke0478-79-05 07:50:25 Test Item Value Reference Range Interpretation [...] = 3438) REJI (test code = REJI) Gate Technician ID - michaela Cutler comments: Slide comments: Lab Interpretation (test Abnormal code = 07971-9) [facility](CELLAVISION MANUAL DIFF)2021-09-09 07:50:25 Test Item Value Reference [...] CONCENTRATION Decreased (CELLAVISION)(BEAKER) (test code = 3438) Gate Technician ID - michaela Cutler comments: Slide comments:CBC W/PLT COUNT & AUTO [id number] 07:50:24 Test Item Value Reference Range Interpretation [...] WBC 0-0 (test code = 413) PROTHROMBIN TIME/[id number] 06:28:05 Test Item Value Reference Range Interpretation Comments PROTIME (BEAKER) 24.0 seconds 11.9-14.2 H (test code = 759) INR (BEAKER) (test 2.18 See_Comment [Automat ed message] code = 370) The system [employer] generated this result transmitted ref erence range: [...] = No growth in 5 days 6463-4) [facility] [id number] 14:01:01 Test Item Value Reference Range Interpretation Comments CULTURE (BEAKER) (test No growth in 5 days code = 1095) [id number] 11:09:32 Test Item Value Reference Range Interpretation Comments Ammonia (test code = 35 See_Comment [Autom ated 80794-5) message] The system which generated this result transmit barron reference range : 18 - 72 mol/L . The reference range was not u sed to interpret th is result as normal/abnormal . REJI (test code = REJI) Gate Technician ID - ELODIAAYA L Lab Interpretation Normal (test code = 84241-5) [facility] 11:09[facility]32 Test Item Value Reference Range Interpretation Comments AMMONIA (BEAKER) (test code = 348) 35 mol/L 18-72 Gate Technician ID - ELODIAAYA LCBC W/PLT COUNT & AUTO [id number] 07:57:44 Test Item Value Reference Range Interpretation [...] CONCENTRATION Decreased (CELLAVISION)(BEAKER) (test code = 3438) Gate Technician GINA Ferguson comments: Slide comments:BASIC METABOLIC [id number] 06:46:23 Test Item Value Reference Range Interpretation [...] S NOT APPLICABLE FOR DIALYSIS PATIEN TS. Gate Technician ID Ajay FRANK WSpecimen slightly zouzqwxDnmhmxwbor8656-13-10 06:42:47 Test Item Value Reference Range Interpretation Comments Phosphorus (test code = 2.4 mg/dL 2.3-4.7 2777-1) REJI (test code = REJI) Gate Technician ID Ajay FRANK W Lab Interpretation (test Normal code = 86155-8) [facility] 06:42:47 Test Item Value Reference Range Interpretation Comments PHOSPHORUS (BEAKER) (test code = 2.4 mg/dL 2.3-4.7 604) Gate Technician GINA FRANK WHEPATIC FUNCTION [id number] 06:42:47 Test Item Value Reference Range Interpretation [...] (test code = 15 U/L 6-55 347) Gate Technician ID - ZAC Rosales slightly ictericPROTHROMBIN TIME/[id number] 05:37:24 Test Item Value Reference Range Interpretation Comments PROTIME (BEAKER) 26.6 seconds 11.9-14.2 H (test code = 759) INR (BEAKER) (test 2.48 See_Comment [Automat ed message] code = 370) The system [employer] generated this result transmitted ref erence range: [...] CONCENTRATION Decreased (CELLAVISION)(BEAKER) (test code = 3438) Gate Technician ID - Cindy Gibson comments: Slide comments:CBC W/PLT COUNT & AUTO [id number] 09:40:43 Test Item Value Reference Range Interpretation [...] 0-0 (test code = 413) BASIC METABOLIC [id number] 07:22:45 Test Item Value Reference Range Interpretation [...] S NOT APPLICABLE FOR DIALYSIS PATIEN TS. Gate Technician ID Ajay MASON LSpecimen slightly rtmqzzaARTSVGXBGO0465-23-92 07:16:27 Test Item Value Reference Range Interpretation Comments PHOSPHORUS (BEAKER) (test code = 2.2 mg/dL 2.3-4.7 L 604) Gate Technician ID Ajay MASON LHEPATIC FUNCTION [id number] 07:16:27 Test Item Value Reference Range Interpretation [...] (test code = 17 U/L 6-55 347) Gate Technician ID Ajay KENTpecimen slightly ictericBLOOD [id number] 07:00:33 Test Item Value Reference Range Interpretation Comments CULTURE (BEAKER) (test No growth in 5 days code = 1095) PROTHROMBIN TIME/[id number] 06:15:38 Test Item Value Reference Range Interpretation Comments PROTIME (BEAKER) 25.1 seconds 11.9-14.2 H (test code = 759) INR (BEAKER) (test 2.31 See_Comment [Automat ed message] code = 370) The system [employer] generated this result transmitted ref erence range: <=5.90. The reference range was not used to int erpret this result as normal/abnormal . RECOMMENDED COUMADIN/WARFARIN INR THERAPY RANGESSTANDARD DOSE: 2.0 - 3.0 Includes: PROPHYLAXIS forvenous thrombosis, systemic embolization; TREATMENT for venous thrombosis and/or pulmonary embolus.HIGH RISK: Target INR is 2.5-3.5 for patients with mechanical heart valves.Ova and Parasite Ctpequuptrw7376-89-44 08:26:13 Test Item Value Reference Range Interpretation Comments O&P Direct Smear (test No ova or parasites No ova or code = 14797-6) seen parasites seen REJI (test code = REJI) See scanned report Lab Interpretation (test Normal code = 30854-7) [facility] 07:29:32 Test Item Value Reference Range Interpretation Comments PHOSPHORUS (BEAKER) (test code = 1.5 mg/dL 2.3-4.7 LL 604) Gate Technician ID - ZAC WBASIC METABOLIC [id number] 07:09:27 Test Item Value Reference Range Interpretation [...] S NOT APPLICABLE FOR DIALYSIS PATIEN TS. Gate Technician ID - ZAC WSpecimen slightly ictericPROTHROMBIN TIME/[id number] 06:57:19 Test Item Value Reference Range Interpretation Comments PROTIME (BEAKER) 23.2 seconds 11.9-14.2 H (test code = 759) INR (BEAKER) (test 2.09 See_Comment [Automat ed message] code = 370) The system [employer] generated this result transmitted ref erence range: [...] CONCENTRATION Decreased (CELLAVISION)(BEAKER) (test code = 3438) Gate Technician ID - nabil Julian comments: Slide comments:[id number] 15:08:54 Test Item Value Reference Range Interpretation Comments PHOSPHORUS (BEAKER) (test code = 1.2 mg/dL 2.3-4.7 LL 604) Gate Technician ID - BSBASIC METABOLIC [id number] 15:04:30 Test Item Value Reference Range Interpretation [...] S NOT APPLICABLE FOR DIALYSIS PATIEN TS. Gate Technician ID - BSSpecimen slightly ictericHEPATIC FUNCTION [id number] 15:02:35 Test Item Value Reference Range Interpretation [...] (test code = 17 U/L 6-55 347) Gate Technician ID - BSSpecimen slightly ictericPROTHROMBIN TIME/[id number] 14:50:10 Test Item Value Reference Range Interpretation Comments PROTIME (BEAKER) 24.9 seconds 11.9-14.2 H (test code = 759) INR (BEAKER) (test 2.28 See_Comment [Automat ed message] code = 370) The system [employer] generated this result transmitted ref erence range: [...] (test code = 413) Clostridium difficile GDH [id number] 21:23:26 Test Item Value Reference Range Interpretation Comments C. Difficle Toxin Positive Negative A (test code = 2136350735) C. Difficile GDH Positive Negative A Confirms Antigen (test code = Clostri dium 4575937007) difficile-assoc ia barron infection.First line therapy - [...] of kit performance was done by the [facility] Microbiology Lab prior to clinical use. Lab Interpretation Abnormal (test code = 98842-2) [facility]. DIFFICILE GDH [id number] 21:23:26 Test Item Value Reference Range Interpretation Comments CDT TOXIN (test code Positive Negative A = [id number]) CDT GDH ANTIGEN Positive Negative A Confirms Maria Esther stridium (test code = difficile-assoc iated 6897585138) infection.First line therapy - oral Vancomycin. Co [...] of kit performance was done by the [facility] Microbiology Lab prior to clinical use.CT, CHEST, WITH [id number] 10:14:00Unlisted Reason for Exam - Click Yes and Enter Reason Below->No [facility] 1960 Sex: FFINAL [...] this for enterography?->YesWill this procedure require oral contrast?->Yes[facility] : 1960 Sex: FFINAL [...] CONCENTRATION Decreased (CELLAVISION)(BEAKER) (test code = 3438) Gate Technician ID - michaela Cutler comments: Slide comments:CBC W/PLT COUNT & AUTO [id number] 07:25:32 Test Item Value Reference Range Interpretation [...] /100 WBC 0-0 (test code = 413) [id number] 06:26:19 Test Item Value Reference Range Interpretation Comments PHOSPHORUS (BEAKER) (test code = 1.5 mg/dL 2.3-4.7 LL 604) Gate Technician ID Ajay FRANK WComprehensive metabolic [id number] 06:18:30 Test Item Value Reference Range Interpretation Comments Protein, Total (test 4.7 See_Comment L [Autom ated code = 2885-2) message] The system which generated this result transmitted reference range : 6.0 - 8.3 gm/dL . The reference range was not used to interpr et this result as normal/abnormal . Albumin (test code = 2.7 g/dL 3.5-5.0 L 99123-8) Alkaline Phosphatase 85 U/L 40-150 (test code [...] (test code = 7.3 mg/dL 8.4-10.2 L 99585-4) AST (test code = 28 U/L 5-34 1920-8) ALT (test code = 14 U/L 6-55 1742-6) EGFR (test code = 53 mL/min/1.73 [place] [address]-3) NOT ACCURATE CREATININE CLEARANCE IN PREDICTING GLOMERULAR FILTRATION RATE . ESTIMATED GFR I S NOT APPLICABLE FOR DIALYSIS PATIENTS. REJI (test code = REJI) Gate Technician ID Ajay FRANK WSpecimen slightly icteric Lab Interpretation Abnormal (test code = 25405-8) [facility] [id number] 06:18:30 Test Item Value Reference Range Interpretation [...] S NOT APPLICABLE FOR DIALYSIS PATIEN TS. Gate Technician ID - ZAC WSpecimen slightly rzpwyvmCPYTEKFMV6741-50-33 06:13:05 Test Item Value Reference Range Interpretation Comments MAGNESIUM (BEAKER) (test code = 2.3 mg/dL 1.6-2.6 627) Gate Technician ID - ZAC W(CELLAVISION MANUAL DIFF)2021-09-03 14:33:56 [...] CONCENTRATION Decreased (CELLAVISION)(BEAKER) (test code = 3438) Gate Technician ID - Claudine Rios comments: Slide comments:CBC W/PLT COUNT & AUTO [id number] 14:33:55 Test Item Value Reference Range Interpretation [...] (test code = 413) Hepatitis B surface xbdjehat6365-66-00 13:30:11 Test Item Value Reference Range Interpretation Comments Hep B S Ab (test code <8.0 See_Comment [Auto mated = 07521-8) message] The system which generated this result transmit barron reference range : <8.0 mIU/mL. Th e reference range was not used to interpret this result as normal/abnormal . REJI (test code = REJI) Gate Technician ID - MARLON Zapien Lab Interpretation Normal (test code = 67295-6) [facility] [id number] 13:30:11 Test Item Value Reference Range Interpretation Comments HEPATITIS B SURFACE ANTIBODY < mIU/mL <8.0 (BEAKER) (test code = 647) Gate Technician ID Ajay ARREOLAepatitis A antibody, [id number] 13:23:53 Test Item Value Reference Range Interpretation Comments Hep A IgG (test code = Nonreactive Nonreactive 85967-7) REJI (test code = REJI) Gate Technician ID - MARLON Zapien Lab Interpretation (test Normal code = 83857-2) [facility], [id number] 13:23:53 Test Item Value Reference Range Interpretation Comments HEPATITIS A IGG ANTIBODY (BEAKER) Nonreactive Nonreactive (test code = 2797) Gate Technician ID Ajay ARREOLAepatitis B core antibody, [id number] 13:23:52 Test Item Value Reference Range Interpretation Comments Hep B Core Total Ab Nonreactive Nonreactive (test code = 21504-0) REJI (test code = REJI) Gate Technician ID - MARLON L Lab Interpretation (test Normal code = 48218-4) [facility] eirfquht3001-42-06 13:23:52 Test Item Value Reference Range Interpretation Comments Hepatitis C Ab (test Nonreactive Nonreactive code = 03833-0) REJI (test code = REJI) Gate Technician ID - MARLON L Lab Interpretation (test Normal code = 52487-0) [facility]HEP[facility] [id number] 13:23:52 Test Item Value Reference Range Interpretation Comments HEPATITIS C ANTIBODY (BEAKER) Nonreactive Nonreactive (test code = 367) Gate Technician ID - MARLON LHEPATITIS B CORE ANTIBODY, [id number] 13:23:52 Test Item Value Reference Range Interpretation Comments HEPATITIS B CORE TOTAL ANTIBODY Nonreactive Nonreactive (BEAKER) (test code = 497) Gate Technician ID - MARLON LHepatitis B surface scgiczh5237-96-44 13:23:51 Test Item Value Reference Range Interpretation Comments HBsAg Screen (test code Nonreactive Nonreactive = 5195-3) REJI (test code = REJI) Specimen is considered negative for HBsAg. Lab Interpretation (test Normal code = 50090-1) [facility]HE[facility] SURFACE [id number] 13:23:51 Test Item Value Reference Range Interpretation [...] S NOT APPLICABLE FOR DIALYSIS PATIEN TS. Gate Technician ID - MARLON LSpecimen slightly cwpujgcKTSWJBVKI2505-21-94 12:58:51 Test Item Value Reference Range Interpretation Comments MAGNESIUM (BEAKER) (test code = 2.1 mg/dL 1.6-2.6 627) Gate Technician ID - MARLON PYCILXLUTMJ2189-07-11 12:58:51 Test Item Value Reference Range Interpretation Comments PHOSPHORUS (BEAKER) (test code = 2.3 mg/dL 2.3-4.7 604) Gate Technician ID - MARLON LPROTHROMBIN TIME/[id number] 12:56:09 Test Item Value Reference Range Interpretation Comments PROTIME (BEAKER) 23.4 seconds 11.9-14.2 H (test code = 759) INR (BEAKER) (test 2.10 See_Comment [Automat ed message] code = 370) The system [employer] generated this result transmitted ref erence range: <=5.90. The reference range was not used to int erpret this result as normal/abnormal . RECOMMENDED COUMADIN/WARFARIN INR THERAPY RANGESSTANDARD DOSE: 2.0 - 3.0 Includes: PROPHYLAXIS forvenous thrombosis, systemic embolization; TREATMENT for venous thrombosis and/or pulmonary embolus.HIGH RISK: Target INR is 2.5-3.5 for patients with mechanical heart valves.Urine [id number] 12:15:06 Test Item Value Reference Range Interpretation Comments Result (test code = 6463-4) No [facility] Gxtc2189-03-03 12:43:22 Test Item Value Reference Range Interpretation Comments CAMPYLOBACTER (PCR) Not detected Not detected (test code = 63958-7) PLESIOMONAS SHIGELLOIDES Not detected Not detected (PCR) (test code = 41686-1) SALMONELLA (PCR) (test Not detected Not detected code = 26703-0) YERSINIA ENTEROCOLITICA Not detected Not detected (PCR) (test code = 72824-4) VIBRIO CHOLERAE (PCR) Not detected Not detected (test code = 55584-3) ENTEROAGGREGATIVE E. Not detected Not detected COLI (EAEC) BY PCR (test code = 43180-6) ENTEROPATHOGENIC E. COLI Not detected Not detected (EPEC) BY PCR (test code = 37195-8) ENTEROTOXIGENIC E. COLI Not detected Not detected (ETEC) LT/ST BY PCR (test code = 29561-0) SHIGA-LIKE Not detected Not detected TOXIN-PRODUCING E. COLI (STEC) STX1/STX2 (test code = 75577-0) E. COLI O157 (PCR) (test code = 15268-9) SHIGELLA/ENTEROINVASIVE Not detected Not detected E. COLI (EIEC) BY PCR (test code = 65041-2) CRYPTOSPORIDIUM (PCR) Not detected Not detected (test code = 81013-0) CYCLOSPORA CAYETANENSIS Not detected Not detected (PCR) (test code = 64428-4) ENTAMOEBA HISTOLYTICA Not detected Not detected (PCR) (test code = 06195-8) GIARDIA LAMBLIA (PCR) Not detected Not detected (test code = 16861-4) ADENOVIRUS F 40/41 (PCR) Not detected Not detected (test code = 91969-0) ASTROVIRUS (PCR) (test Not detected Not detected code = 49496-5) NOROVIRUS GI/GII (PCR) Not detected Not detected (test code = 98541-7) ROTAVIRUS A (PCR) (test Not detected Not detected code = 79501-0) SAPOVIRUS (I, II, IV, V) Not detected Not detected BY PCR (test code = 44108-2) VIBRIO Not detected Not detected (PARAHAEMOLYTICUS, VULNIFICUS) (test code = 05784-9) REJI (test code = REJI) Other viruses, parasites and bacteria not targeted by this PCR panel cannot be excluded; therefore clinical correlation and follow up of serology, culture results, and other molecular studies is required. The results are not intended to be used as the sole means for clinical diagnosis or patient management decisions. This sample was tested at the [facility] Molecular Diagnostics Laboratory using the [employer] Gastrointestinal Panel. It is FDA cleared and has been verified and approved by the [facility] Molecular Diagnostics Laboratory for clinical use. This laboratory is CLIA-certified and [employer] ([employer])-accredited to perform high complexity testing. [facility] BY [id number] 12:43:22 Test Item Value Reference Range Interpretation Comments CAMPYLOBACTER (PCR) (test code = Not detected Not detected 20160214) PLESIOMONAS SHIGELLOIDES (PCR) Not detected Not detected (test code = 20160218) SALMONELLA (PCR) (test code = Not detected Not detected ) YERSINIA ENTEROCOLITICA (PCR) Not detected Not detected (test code = 7111595) VIBRIO CHOLERAE (PCR) (test code Not detected Not detected = 1570593) ENTEROAGGREGATIVE E. COLI (EAEC) Not detected Not detected BY PCR (test code = 7712338) ENTEROPATHOGENIC E. COLI (EPEC) Not detected Not detected BY PCR (test code = 1212674) ENTEROTOXIGENIC E. COLI (ETEC) Not detected Not detected LT/ST BY PCR (test code = 9541522) SHIGA-LIKE TOXIN-PRODUCING E. Not detected Not detected COLI (STEC) STX1/STX2 (test code = 9340908) E. COLI O157 (PCR) (test code = 3477178) SHIGELLA/ENTEROINVASIVE E. COLI Not detected Not detected (EIEC) BY PCR (test code = 0296056) CRYPTOSPORIDIUM (PCR) (test code Not detected Not detected = 20160320) CYCLOSPORA CAYETANENSIS (PCR) Not detected Not detected (test code = 7133846) ENTAMOEBA HISTOLYTICA (PCR) Not detected Not detected (test code = 2814803) GIARDIA LAMBLIA (PCR) (test code Not detected Not detected = 20160413) ADENOVIRUS F 40/41 (PCR) (test Not detected Not detected code = 8571309) ASTROVIRUS (PCR) (test code = Not detected Not detected 20160415) NOROVIRUS GI/GII (PCR) (test Not detected Not detected code = 2394612) ROTAVIRUS A (PCR) (test code = Not detected Not detected 20160417) SAPOVIRUS (I, II, IV, V) BY PCR Not detected Not detected (test code = 20160418) VIBRIO (PARAHAEMOLYTICUS, Not detected Not detected VULNIFICUS) (test code = 8475324) Other viruses, parasites and bacteria not targeted by this PCR panel cannot be excluded; therefore clinical correlation and follow up of serology, culture results, and other molecular studies is required. The results are not intended to be used as the sole means for clinical diagnosis or patient management decisions. This sample was tested at the [facility] Molecular Diagnostics Laboratory using the [employer] Gastrointestinal Panel. It is FDA cleared and has been verified and approved by the [facility] Molecular Diagnostics Laboratory for clinical [...] CONCENTRATION Decreased (CELLAVISION)(BEAKER) (test code = 3438) Gate Technician ID - Phyllis comments: Slide comments:CBC W/PLT COUNT & AUTO [id number] 08:49:57 Test Item Value Reference Range Interpretation [...] (test code = 413) Vitamin B12 and Rukfib1617-84-81 07:20:11 Test Item Value Reference Range Interpretation Comments Vitamin B12 (test 1116 pg/mL 213-816 H code = 2132-9) Folate (test code = 3.50 ng/mL See_Comment L [Automa barron 2284-8) message] The system which generated this result transmit barron reference range : >=7.00. The reference range was not used to interpret this result as normal/abnormal . REJI (test code = REJI) Gate Technician ID - SHAQUILLE Reynolds Lab Interpretation Abnormal (test code = 69476-9) [facility]IT[facility] AND [id number] 07:20:11 Test Item Value Reference Range Interpretation Comments VITAMIN B12 (BEAKER) 1116 pg/mL 213-816 H (test code = 774) FOLATE (BEAKER) 3.50 ng/mL See_Comment L [Automated message] (test code = 362) The system which generated this result transmitted ref erence range: >=7.00. The reference range was not used to interpr et this result as normal/abnormal . Gate Technician ID - SHAQUILLE BETANCOURTOMPREHENSIVE METABOLIC [id number] 06:57:06 Test Item Value Reference Range Interpretation [...] S NOT APPLICABLE FOR DIALYSIS PATIEN TS. Gate Technician ID - SHAQUILLE MSpecimen slightly ictericC-Reactive Qdkddal0582-08-27 06:55:26 Test Item Value Reference Range Interpretation Comments CRP (test code = 676) 4.64 mg/dL 0.00-0.50 H REJI (test code = REJI) Gate Technician ID - SHAQUILLE M Lab Interpretation (test Abnormal code = 09064-2) [facility] 06:55:26 Test Item Value Reference Range Interpretation Comments PHOSPHORUS (BEAKER) (test code = 1.8 mg/dL 2.3-4.7 L 604) Gate Technician ID - SHAQUILLE MC-REACTIVE [id number] 06:55:26 Test Item Value Reference Range Interpretation Comments C-REACTIVE PROTEIN (BEAKER) (test 4.64 mg/dL 0.00-0.50 H code = 676) Gate Technician ID - SHAQUILLE GLJFJLYSXB5106-13-33 06:55:25 Test Item Value Reference Range Interpretation Comments MAGNESIUM (BEAKER) (test code = 2.3 mg/dL 1.6-2.6 627) Gate Technician ID Ajay CORBIN Corina, TIBC, % sat. (without ferritin)2021-09-02 06:44:00 Test Item Value Reference Range Interpretation Comments Iron (test code = 2498-4) 28.0 ug/dL 40.0-160.0 L TIBC (test code = 2500-7) 243 ug/dL 250-450 L Iron % Saturation (test 12 % 20-55 L code = 2502-3) REJI (test code = REJI) Gate Technician ID - SHAQUILLE M Lab Interpretation (test Abnormal code = 97343-6) [facility], % SAT. (WITHOUT FERRITIN)2021-09-02 06:44:00 Test Item Value Reference Range Interpretation Comments IRON (BEAKER) (test code = 547) 28.0 ug/dL 40.0-160.0 L TOTAL IRON BINDING CAPACITY 243 ug/dL 250-450 L (BEAKER) (test code = 769) IRON % SATURATION (2) (BEAKER) 12 % 20-55 L (test code = 2590) Gate Technician ID - SHAQUILLE MCT, BRAIN, WITHOUT [id number] 03:54:00Unlisted Reason for Exam - Click Yes and Enter Reason Below->No [facility] 1960 Sex: FFINAL [...] examination is recommended forfurther characterization. Signed: [facility] Verified Date/Time: 09/02/2021 03:54:37 U/S, ABDOMINAL, [id number] 03:38:00Abdomen limited area? Add comment if clarification is needed.->Right upper quadrantReason for exam:->evaluate biliary tree/liver [facility] : 1960 Sex: FFINAL [...] in setting of hepatic steatosis. Signed: Dulce Mraia Sales [facility] Verified Date/Time: 09/02/2021 03:38:29 Urinalysis w/Microscopic + Reflex to [id number] 02:29:12 Test Item Value Reference Range Interpretation Comments Color, UA (test code Brown = 5778-6) Clarity, UA (test Hazy code = 5767-9) Specific [place], UA 1.029 1.001-1.035 (test code = 5811-5) pH, UA (test code = 6.0 5.0-8.0 5803-2) Protein, UA (test 30 mg/dL Negative A code = 85938-5) Glucose, UA (test Negative Negative code = 365) Ketones, UA (test Negative Negative code = 2514-8) Bilirubin, UA (test Negative Negative code = 65570-5) Blood, UA (test code Small Negative A = 63539-0) Nitrite, UA (test Negative Negative code = 5802-4) Leukocytes, UA (test Moderate Negative A code = 5799-2) Urobilinogen, UA 0.2 mg/dL 0.2-1.0 (test code = 60569-9) RBC, UA (test code = 18 See_Comment [Autom ated 31014-9) message] The system which generated this result [...] . Bacteria, UA (test Rare code = 36575-4) Mucus (test code = Moderate 8247-9) Squam Epithel, UA 2 See_Comment [Automate d (test code = 18833-0) messag e] The system which generated this result transmit barron reference range : /HPF. The reference range was not used to interpret this result as normal/abnormal . Hyaline Casts, UA 3 See_Comment [Automate d (test code = 95435-0) messag e] The system which generated this result transmit barron reference range : /LPF. The reference range was not used to interpret this result as normal/abnormal . Crystals, Urine (test None Seen code = 79445-5) Amorphous Crystals Rare (test code = 53823-1) Specimen Source (test code = 2795) REJI (test code = REJI) Gate Technician ID - [auto]Gate Technician ID - tech Lab Interpretation Abnormal (test code = 23120-6) [facility] [id number] 02:29:12 Test Item Value Reference Range Interpretation [...] = 1584) SOURCE(BEAKER) (test code = 2795) Gate Technician ID - [auto]Gate Technician ID - techRAD, CHEST, 1 VIEW, NON [id number] 01:45:00Reason for exam:->leukocytosis, unable to provide historyShould this be performed at the bedside?->Yes [facility] : 1960 Sex: FFINAL [...] 09/02/2021 01:45:23 CBC W/PLT COUNT & AUTO [id number] 00:20:23 Test Item Value Reference Range Interpretation [...] CONCENTRATION Decreased (CELLAVISION)(BEAKER) (test code = 3438) Gate Technician ID - Curtis Grullon comments: Slide comments:PT/[id number] 23:44:49 Test Item Value Reference Interpretation Comments Range Protime (test code = 22.8 See_Comment H [Autom ated 5902-2) message] The system which generated this result transmitted reference range : 11.9 - 14.2 seconds. The reference range was not used to interpret this result as normal/abnormal . INR (test code = 2.04 See_Comment [Automated 9142-6) message] The system which generated this result transmitted reference range : <=5.90. The reference range was not used to interpret this result as normal/abnormal . PTT (test code = 35.2 See_Comment [Automated 38360-2) message] The system which generated this result [...] valves. Lab Interpretation Abnormal (test code = 92426-8) [facility]PT/[id number] 23:44:49 Test Item Value Reference Range Interpretation [...] for patients with mechanical heart valves.BASIC METABOLIC [id number] 23:31:12 Test Item Value Reference Range Interpretation [...] S NOT APPLICABLE FOR DIALYSIS PATIEN TS. Gate Technician ID - DBSpecimen slightly yphfjxbZIXQYHAHN7516-45-93 23:19:46 Test Item Value Reference Range Interpretation Comments MAGNESIUM (BEAKER) (test code = 1.8 mg/dL 1.6-2.6 627) Gate Technician ID - [id number] 23:19:46 Test Item Value Reference Range Interpretation Comments PHOSPHORUS (BEAKER) (test code = 1.9 mg/dL 2.3-4.7 L 604) Gate Technician ID - DBHEPATIC FUNCTION [id number] 23:19:46 Test Item Value Reference Range Interpretation [...] (test code = 14 U/L 6-55 347) Gate Technician ID - DBSpecimen slightly ictericLactic acid, [id number] 23:13:03 Test Item Value Reference Range Interpretation Comments Lactate, Venous (test 2.88 mmol/L 0.50-2.20 H code = 2872) REJI (test code = REJI) Gate Technician ID - DBSpecimen slightly icteric Lab Interpretation (test Abnormal code = 69855-9) [facility] CenterLACT[facility] ACID, [id number] 23:13:03 Test Item Value Reference Range Interpretation Comments LACTATE BLOOD VENOUS (2) (BEAKER) 2.88 mmol/L 0.50-2.20 H (test code = 2872) Gate Technician ID - DBSpecimen slightly ictericPOC-Glucose asirr7885-03-14 22:47:30 Test Item Value Reference Range Interpretation Comments POC-Glucose Meter (test 106 mg/dL 70-110 : TE STED AT [facility] code = 1538) [address] [facility], 770 30: Gate Technician/Techni sowmya ID = [id number] for ZULEIKA TAYA K Lab Interpretation (test Normal code = 88376-3) [facility] CenterPO[facility]UCOSE [id number] 22:47:30 Test Item Value Reference Range Interpretation Comments POC-GLUCOSE METER 106 mg/dL 70-110 : TESTED A T [facility] 6720 (BEAKER) (test code = [facility], 1538) [address]: Gate Technician/Techni sowmya ID = [id number] for WALE FITZPATRICK C1Q class 1 & 2 qaneogkd2717-09-91 17:38:21 Test Item Value Reference Range Interpretation Comments Interpretation (test code ADDITIONAL ANTIBODY = 2724123) INFORMATION:DQ7 = DQB1*03:01; DQA1*05:03DQ7 = DQB1*03:19; DQA1*05:05DQ7 = DQB1*03:01; DQA1*06:01DQ9 = DQB1*03:03; DQA1*02:01DQ9 = DQB1*03:03; DQA1*03:02DQ8 = DQB1*03:02; DQA1*03:01DQ8 = DQB1*03:02; DQA1*03:02 Case number (test code = [id number]) C1Q class 1 & 2 antibody See link below for (test code = 2712450) PDF Lab Report [facility], diffusion, lung volumes, [facility]/[id number] 19:27:26 Test Item Value Reference Range Interpretation [...] = 67.9 % 5368) [facility] pklhdqi9418-93-42 13:53:30 Test Item Value Reference Range Interpretation Comments POC glucose (test code = 124 mg/dL 65-99 H Ope rator Name: [id number]) Clint Bustamante RDevice ID: [id number] able : [facility] Notified pigeon fancier Interpretation (test Abnormal code = 50631-3) [facility] antigen [id number] 11:33:46 Test Item Value Reference Range Interpretation Comments SAB interpretation (test Additional Antibody code = 5950) Information:DQ2=DQB1 *02:01/DQA1*04:01, DQB1*02:01/DQA1*05:0 9JR8=SKU2*04:02/DQA1 *04:93ZQ9=GPX6*03:01 /DPA1*01:03, DPB1*03:01/DPA1*02:0 5NN6=WWA2*04:02/DPA1 *01:89GB02=ACO8*28:0 1/DPA1*01:03 SAB serum ID (test code = [id number] 5866) SAB serum collection D&T 08/23/2021 05:49 AM (test code = 5867) SAB class I antibody A11,A74,A32,A3,A31,A assignment (test code = 30,A36,A1,A29,A66,A8 5870) 0,A26,A25,A43,A34,A3 3,B82 SAB cPRA class I (test code = 5868) SAB class II antibody DR18,DR17,DR13,DR14, assignment (test code = DR52,DR11,DR8,DQ7,DR 5871) 12,DQ9,DR9,DR7,DQ8,D Q2,DR4,DQ4,DP2,DP14, DP4,DP9,DP10,DP18,DP 20,DP17,DP3,DP28 SAB cPRA class II (test code = 5869) Case number (test code = [id number]) Single antigen beads See link below for (test code = 4604) PDF Lab Report [facility], sasjj1983-50-57 20:20:55 Test Item Value Reference Range Interpretation Comments Collection start date, urine (test 08/23/21 code = 64946-5) Collection start time, urine (test 8:40 code = 44533-6) Collection stop date, urine (test 08/24/21 code = 48772-3) Collection stop time, urine (test 8:40 code = 93871-2) Hours of collection (test code = 95687-4) Total volume, urine (test code = 800 mL 72792-0) Urine protein concentration (test 7 mg/dL code = 99827-4) Urine protein excretion (test code = mg/vol 2448) [facility] HospitalCreatinine level, urine, [id number] 20:20:52 Test Item Value Reference Range Interpretation Comments Collection start date, urine (test 08/23/21 code = 95312-2) Collection start time, urine (test 8:40 code = 10051-0) Collection stop date, urine (test 08/24/21 code = 28615-4) Collection stop time, urine (test 8:40 code = 90118-7) Hours of collection (test code = 28705-0) Total volume, urine (test code = 800 mL 16421-4) Urine creatinine concentration 114 mg/dL (test code = 71924-4) Urine creatinine excretion (test mg/vol code = 58291-1) [facility]alARS-CoV-2 (COVID-19) RNA [Presence] in Respiratory specimen by GUSTAVO with probe [id number] 20:48:05 Test Item Value Reference Range Interpretation Comments SARS-CoV-2 (COVID-19) RNA Not detected Not-Detected [Presence] in Respiratory specimen by GUSTAVO with probe detection (test code = 62447-7) 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 (test code = 05586-2) Whether the patient has symptoms related to condition of interest (test code = 50697-1) Patient was hospitalized because of this condition (test code = 38608-0) Whether the patient was admitted to intensive care unit (ICU) for condition of interest (test code = 00583-9) Whether patient resides in a congregate care setting (test code = 85685-1) ECG 12 [id number] 15:33:38 Test Item Value Reference Range Interpretation Comments Ventricular rate (test code = 253) Atrial rate (test code = 255) AR interval (test code = 266) QRSD interval [...] out Inferior infarct , age undetermined-Abnormal ECG- [facility] trbypqqbdx7370-05-50 14:27:40 Test Item Value Reference Range Interpretation Comments HLA transplant evaluation See link below for (test code = 70570-5) PDF Lab Report Case number (test code = [id number]) [facility] [place] [place] ED Preliminary Interpretation - Not an [id number] 02:54:33 Test Item Value Reference Range Interpretation Comments REJI (test code = REJI) Orlando Balderrama MD 08/17/2021 10:33 [facility] ED Preliminary Interpretation - Not an OrderPerformed by: Orlando Balderrama MDAuthorized by: Orlando Balderrama MD ECG reviewed by ED Physician in the absence of a breakfast bar attendant: yes Interpretation: Interpretation: abnormal Rate: ECG rate: 80 ECG rate assessment: normal Rhythm: Rhythm: sinus rhythm QRS: QRS axis: Normal QRS intervals: NormalST segments: ST segments: NormalOther findings: Other findings: prolonged qTc interval Lab Interpretation Abnormal (test code = 99894-5) [facility] [Presence] in Respiratory specimen by GUSTAVO with probe wafhisckq3198-88-12 23:59:30 Test Item Value Reference Range Interpretation Comments SARS-CoV-2 (COVID-19) RNA Not detected Not-Detected [Presence] in Respiratory specimen by GUSTAVO with probe detection (test code = 18933-2) 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 (test code = 02527-6) Whether the patient has symptoms related to condition of interest (test code = 76790-7) Patient was hospitalized because of this condition (test code = 79107-2) Whether the patient was admitted to intensive care unit (ICU) for condition of interest (test code = 50645-1) Whether patient resides in a congregate care setting (test code = 06668-0) status (test code = 42793-8) SARS-CoV-2 (COVID-19) RNA [Presence] in Respiratory specimen by GUSTAVO with probe szmrzpvmd9549-61-38 14:46:31 Test Item Value Reference Range Interpretation Comments SARS-CoV-2 (COVID-19) RNA Not detected Not-Detected [Presence] in Respiratory specimen by GUSTAVO with probe detection (test code = 34402-1) 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 (test code = 36220-8) Whether the patient has symptoms related to condition of interest (test code = 97901-8) Patient was hospitalized because of this condition (test code = 83573-7) Whether the patient was admitted to intensive care unit (ICU) for condition of interest (test code = 12757-0) Whether patient resides in a congregate care setting (test code = 52202-6) status (test code = 01003-1) SARS-CoV-2 (COVID-19) RNA [Presence] in Respiratory specimen by GUSTAVO with probe tfzbqqhgk6258-50-87 19:52:10 Test Item Value Reference Range Interpretation Comments SARS-CoV-2 (COVID-19) RNA Not detected Not-Detected [Presence] in Respiratory specimen by GUSTAVO with probe detection (test code = 70222-0) 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 (test code = 11287-9) Whether the patient has symptoms related to condition of interest (test code = 19002-4) Patient was hospitalized because of this condition (test code = 34634-7) Whether the patient was admitted to intensive care unit (ICU) for condition of interest (test code = 22043-2) Whether patient resides in a congregate care setting (test code = 04597-6) status (test code = 81491-9) SARS-CoV-2 (COVID-19) RNA [Presence] in Respiratory specimen by GUSTAVO with probe cmfkcjnbg8445-09-65 19:31:11 Test Item Value Reference Range Interpretation Comments SARS-CoV-2 (COVID-19) RNA Not detected Not-Detected [Presence] in Respiratory specimen by GUSTAVO with probe detection (test code = 54248-2) 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 (test code = 87000-3) Whether the patient has symptoms related to condition of interest (test code = 06889-8) Patient was hospitalized because of this condition (test code = 70502-3) Whether the patient was admitted to intensive care unit (ICU) for condition of interest (test code = 19817-4) Whether patient resides in a congregate care setting (test code = 71411-7) status (test code = 72244-8) SARS-CoV-2 (COVID-19) RNA [Presence] in Respiratory specimen by GUSTAVO with probe owokezgfv5258-46-60 02:26:38 Test Item Value Reference Range Interpretation Comments SARS-CoV-2 (COVID-19) RNA Not detected Not-Detected [Presence] in Respiratory specimen by GUSTAVO with probe detection (test code = 88208-1) SARS-CoV-2 (COVID-19) RNA [Presence] in Respiratory specimen by GUSTAVO with probe cwismfrlb9979-87-24 21:10:32 Test Item Value Reference Range Interpretation Comments SARS-CoV-2 (COVID-19) RNA Not detected Not-Detected [Presence] in Respiratory specimen by GUSTAVO with probe detection (test code = 00413-5) SARS-CoV-2 (COVID-19) RNA [Presence] in Respiratory specimen by GUSTAVO with probe zteajupkr2864-70-73 19:03:37 Test Item Value Reference Range Interpretation Comments SARS-CoV-2 (COVID-19) RNA Not detected Not-Detected [Presence] in Respiratory specimen by GUSTAVO with probe detection (test code = 55496-8) SARS-CoV-2 (COVID-19) RNA [Presence] in Respiratory specimen by GUSTAVO with probe ogglbdnpc3707-29-00 05:36:17 Test Item Value Reference Range Interpretation Comments SARS-CoV-2 (COVID-19) RNA Not detected Not-Detected [Presence] in Respiratory specimen by GUSTAVO with probe detection (test code = 58433-8) SARS-CoV-2 (COVID-19) IgG+IgM Ab [Presence] in Serum or Plasma by Immunoassay 2020-08-13 09:52:00 Test Item Value Reference Range Interpretation Comments SARS-CoV-2 (COVID-19) IgG+IgM Ab Not detected [Presence] in Serum or Plasma by Immunoassay (test code = 55954-4) SARS-CoV-2 (COVID-19) RNA [Presence] in Respiratory specimen by GUSTAVO with probe yhaaaflwj5821-20-76 04:46:40 Test Item Value Reference Range Interpretation Comments SARS-CoV-2 (COVID-19) RNA [Presence] Detected Not-Detected in Respiratory specimen by GUSTAVO with probe detection (test code = 43531-2) SARS-CoV-2 (COVID-19) RNA [Presence] in Respiratory specimen by GUSTAVO with probe pcihbhzvp1154-06-11 00:55:48 Test Item Value Reference Range Interpretation Comments SARS-CoV-2 (COVID-19) RNA Not detected Not-Detected [Presence] in Respiratory specimen by GUSTAVO with probe detection (test code = 19348-8) SARS-CoV-2 (COVID-19) RNA [Presence] in Respiratory specimen by GUSTAVO with probe vcunkpwnu1096-27-52 08:17:26 Test Item Value Reference Range Interpretation Comments SARS-CoV-2 (COVID-19) RNA Not detected Not-Detected [Presence] in Respiratory specimen by GUSTAVO with probe detection (test code = 54896-5) SARS-CoV-2 (COVID-19) RNA [Presence] in Respiratory specimen by GUSTAVO with probe yiambvayy5372-85-59 00:04:18 Test Item Value Reference Range Interpretation Comments SARS-CoV-2 (COVID-19) RNA Not detected Not-Detected [Presence] in Respiratory specimen by GUSTAVO with probe detection (test code = 70204-0) SARS-CoV-2 (COVID-19) RNA [Presence] in Respiratory specimen by GUSTAVO with probe pfjnrlnek2577-26-14 04:41:17 Test Item Value Reference Range Interpretation Comments SARS-CoV-2 (COVID-19) RNA Not detected Not-Detected [Presence] in Respiratory specimen by GUSTAVO with probe detection (test code = 02593-4) SARS-CoV-2 (COVID-19) RNA [Presence] in Respiratory specimen by GUSTAVO with probe [id number] 04:13:39 Test Item Value Reference Range Interpretation Comments SARS-CoV-2 (COVID-19) RNA Not detected Not-Detected [Presence] in Respiratory specimen by GUSTAVO with probe detection (test code = 62036-0)
[2022-01-20] MEDS ORDERED: ONDANSETRON 4 MG/2 ML VIAL ONE ×2 (04:01→07:50)
[2022-01-20] MEDS ORDERED: MORPHINE 4 MG/ML SYR ONE ×2 (04:01→07:50)
[2022-01-20] MEDS ORDERED: NA CHLORIDE 0.9% 1,000 ML ONE (04:02)
[2022-01-20 04:38] LABS: Absolute Lymphocytes (CBC) 1.4 K/uL (0.7-4.9); Hematocrit 29.9 % (36.0-45.0); Lymphocytes % 18.9 % (15.3-44.8); MPV 7.7 fL (7.6-11.3); RBC Red Blood Cell Count 3.35 M/uL (3.86-4.86)
[2022-01-20] MEDS ORDERED: PANTOPRAZOLE 40 MG INJ ONE (04:48)
[2022-01-20 04:59] LABS: Albumin 2.9 g/dL (3.4-5.0); Bilirubin Total 4.4 mg/dL (0.2-1.0)
[2022-01-20 05:02] LABS: Potassium 2.3 mmol/L (3.5-5.1)
[2022-01-20] MEDS ORDERED: KCL 20 MEQ/100 mL IVPB 100 ML IV ONE (05:14)
[2022-01-20 06:15] LABS: Urine Blood Negative (Negative); Urine Glucose Negative (Negative); Urine Protein Negative (Negative)
--- NOTE | 2022-01-20 08:47 | RAD REPORT ---
EXAM DESCRIPTION: CT - Abdomen Pelvis Wo Contrast - 01/20/2022 8:12 am CLINICAL HISTORY: Abd pain COMPARISON: Abdomen Pelvis Wo Contrast dated 12/27/2021; Stone Protocol dated 12/31/2018 TECHNIQUE: Axial [address] imaging of the abdomen and pelvis was performed without IV contrast. No IV contrast was given because of allergy, abnormal renal function, patient refusal or physician re quest. No oral contrast administered. All CT scans are performed using dose optimization technique as appropriate and may include automated exposure control or mA/KV adjustment according to patient size. FINDINGS: No suspicious findings in the lung bases. No acute liver finding noncontrast imaging. Tips shunt tube is in place. No acute pancreatic process. Stable splenomegaly noted. No focal splenic finding. Gallbladder and biliary tree are also without s uspicious finding. No hydronephrosis or suspicious renal mass. A 5 centimeter posterior left renal cyst is noted and sta ble. Punctate 2 mm nonobstructing calculus seen on the right and a 4 millimeter parenchymal calcifica tions seen lower pole left kidney. No significant adrenal finding. Isodense renal masses and pyelonep hritis cannot be excluded in the absence of IV contrast. Contracted urinary bladder shows no gross ab normality. Uterus is absent and hysterectomy surgical history was detailed. Ovaries may be atrophic rather than absent. There is a 3.5 x 2.5 centimeter homogeneous cystic fluid attenuation mass in the right adnexa e is similar to the 2019 study. It is probably remnant paraovarian cyst. Mesenteric cyst would be pos sible. This is not considered a clinically significant finding. Stomach is decompressed accentuating gastric stanley. No asymmetric thickening seen. No acute small bow el finding. Right colon anastomotic site shows no acute finding. There is hyperdense material layerin g along the posterior margin of the ascending colon presumably ingested contrast material from remote study. Transverse colon and splenic flexure are unremarkable. The mid descending colon, sigmoid and rectum portions of the large intestine show circumferential wall thickening and edema. There is mild stranding in the adjacent fat. No free air or pneumatosis. No abnormal free fluid collection. Mesh material is present along the anterior abdominal wall from prior hernia repair. No recurrent her sujatha, mass or bulky lymphadenopathy. No suspicious bony findings. IMPRESSION: Nonspecific left-sided colitis pattern involving the descending, sigmoid and rectum port ions of the colon. No abscess, free air or surgically emergent finding. Full assessment is limited is the absence of IV contrast. Nonacute findings detailed in the body of t he report.
--- NOTE | 2022-01-20 09:21 | EDPHYS ---
Physician Documentation [facility] Name: Bella Barron Age: 61 yrs Sex: Female : 1960 Arrival Date: 01/20/2022 Time: 02:18 Bed 17 Private MD: ED Physician Yves French HPI: 01/20 03:40 This 61 yrs old Female presents to ER via Wheelchair with complaints of Post Surgical mh7 Bleeding. 03:40 The patient presents to the emergency department with diarrhea, that is intermittent, mh7 abdominal pain, of the left lower quadrant, described as intermittent, vague,\\E\\ waxing and waning, and does not radiate, blood in stool. Onset: The symptoms/episode began/occurred yesterday. Possible causes: flare up of bowel problem, Crohn's disease, post colonoscopy 3 days ago. The symptoms are aggravated by nothing. The symptoms are alleviated by nothing. Associated signs and symptoms: Pertinent negatives: anorexia, belching, constipation, dysuria, fever, flatulence, hematuria, vaginal discharge. Severity of symptoms: At their worst the symptoms were moderate last night, in the emergency department the symptoms have improved moderately. Historical: - Allergies: 03:46 Iodine; vc1 03:46 Phenergan; vc1 03:46 Rocephin; vc1 - Home Meds: 03:46 Aldactone 25 mg oral tab once daily [Active]; gabapentin 300 mg Oral cap 1 cap twice a vc1 day [Active]; ramelteon 8 mg Oral tab evenings for Sleep-Onset Insomnia [Active]; Ubrelvy 100 mg Oral tab 1 tab daily for Migraine [Active]; Xifaxan 550 mg Oral tab 1 tab 2 times per day [Active]; Zofran 4 mg Oral tab 1 tab prn [Active]; Ultram 50 mg Oral tab prn for Pain [Active]; diphenoxylate-atropine 2.5-0.025 mg/5 mL Oral liqd once daily [Active]; furosemide 20 mg Oral tab 1 tab 2 times per day [Active]; fluoxetine 20 mg Oral cap 1 cap once daily [Active]; aripiprazole 5 mg oral tab 1 tab once daily [Active]; 07:56 Allopurinol Oral [Active]; layton - PMHx: 03:46 Cirrhosis; Colitis; Crohn's; Depression; Liver disease; needs kidney and liver vc1 transplant; - PSHx: 03:46 bowel resection; Cholecystectomy; TIPS procedure; Total abdominal hysterectomy; vc1 - Immunization history:: Adult Immunizations up to date, Client reports receiving the 2nd dose of the Covid vaccine, second dose was Pfizer Client reports receiving the Abiodun \\T\\ Abiodun single-dose vaccine. - Social history:: Smoking status: Patient/guardian denies using tobacco, but has a distant history of tobacco abuse. ROS: 03:40 Constitutional: Negative for fever, chills, and weight loss, Eyes: Negative for injury, mh7 pain, redness, and discharge, ENT: Negative for injury, pain, and discharge, Neck: Negative for injury, pain, and swelling, Cardiovascular: Negative for chest pain, palpitations, and edema, Respiratory: Negative for shortness of breath, cough, wheezing, and pleuritic chest pain, Back: Negative for injury and pain, : Negative for injury, bleeding, discharge, and swelling, MS/Extremity: Negative for injury and deformity, Skin: Negative for injury, rash, and discoloration, Neuro: Negative for headache, weakness, numbness, tingling, and seizure, Psych: Negative for depression, anxiety, suicide ideation, homicidal ideation, and hallucinations, Allergy/Immunology: Negative for hives, rash, and allergies, Endocrine: Negative for neck swelling, polydipsia, polyuria, polyphagia, and marked weight changes, Hematologic/Lymphatic: Negative for swollen nodes, abnormal bleeding, and unusual bruising. Exam: 03:40 Head/Face: Normocephalic, atraumatic. Eyes: Pupils equal round and reactive to light, mh7 extra-ocular motions intact. Lids and lashes normal. Conjunctiva and sclera are non-icteric and not injected. Cornea within normal limits. Periorbital areas with no swelling, redness, or edema. Neck: Trachea midline, no thyromegaly or masses palpated, and no cervical lymphadenopathy. Supple, full range of motion without nuchal rigidity, or vertebral point tenderness. No Meningismus. Chest/axilla: Normal chest wall appearance and motion. Nontender with no deformity. No lesions are appreciated. Cardiovascular: Regular rate and rhythm with a normal S1 and S2. No gallops, murmurs, or rubs. Normal PMI, no JVD. No pulse deficits. Respiratory: Lungs have equal breath sounds bilaterally, clear to auscultation and percussion. No rales, rhonchi or wheezes noted. No increased work of breathing, no retractions or nasal flaring. 03:40 Back: No spinal tenderness. No costovertebral tenderness. Full range of motion. Skin: Warm, dry with normal turgor. Normal color with no rashes, no lesions, and no evidence of cellulitis. MS/ Extremity: Pulses equal, no cyanosis. Neurovascular intact. Full, normal range of motion. Neuro: Awake and alert, GCS 15, oriented to person, place, time, and situation. Cranial nerves II-XII grossly intact. Motor strength 5/5 in all extremities. Sensory grossly intact. Cerebellar exam normal. Normal gait. Psych: Awake, alert, with orientation to person, place and time. Behavior, mood, and affect are within normal limits. 03:40 Constitutional: The patient appears in no acute distress, alert, awake, uncomfortable. 03:40 Abdomen/GI: Inspection: abdomen appears normal, Bowel sounds: normal, in all quadrants, Palpation: moderate abdominal tenderness, in the left lower quadrant, mass, is not appreciated, rebound tenderness, is not appreciated, voluntary guarding, is not appreciated, involuntary guarding, is not appreciated, no appreciated organomegaly, Rectal exam: Stool: guaiac negative, green, hemorrhoid(s), are not appreciated, mass, is not appreciated, swelling, is not appreciated, tenderness, is not appreciated, fecal impaction, is not appreciated, the exam is chaperoned by the nurse, Indicators: McBurney's point is not tender, Mi's sign is negative, Rovsing's sign is negative, Obturator sign is negative, Psoas sign is negative, Liver: no appreciated palpable abnormalities, Hernia: not appreciated. Vital Signs: 03:42 BP 117 / 65; Pulse 86; Resp 18; Temp 98.4; Pulse Ox 97% ; Weight 71.21 kg; Height 4 ft. vc1 11 in. (149.86 cm); Pain 10/10; 04:36 Pain 5/10; ag7 05:45 BP 110 / 57; Pulse 93; Resp 16 S; Pulse Ox 97% on R/A; Pain 7/10; ag7 07:55 BP 101 / 53; Pulse 82; Resp 17; Pulse Ox 97% ; laytno 03:42 Body Mass Index 31.71 (71.21 kg, 149.86 cm) vc1 MDM: 09:20 Patient medically screened. kdr 11:58 Data reviewed: vital signs, lab test result(s), radiologic studies. Counseling: I had a kdr detailed discussion with the patient and/or guardian regarding: the historical points, exam findings, and any diagnostic results supporting the discharge/admit diagnosis, lab results, radiology results, the need for outpatient follow up. 01/20 03:31 Order name: CBC with Diff; Complete Time: 04:46 [facility] 01/20 03:31 Order name: CMP; Complete Time: 05:02 [facility] 01/20 03:31 Order name: Lipase; Complete Time: 05:02 [facility] 01/20 03:31 Order name: Fecal Leukocyte Stain [facility] 01/20 03:31 Order name: Ova And Parasites [facility] 01/20 03:31 Order name: Rotavirus Antigen; Complete Time: 06:14 [facility] 01/20 03:31 Order name: Stool Culture [facility] 01/20 03:31 Order name: C.difficile [facility] 01/20 05:08 Order name: COVID-19 SARS RT PCR (Document "Date of Onset" if Symptomatic); Complete [facility] Time: 07:51 01/20 06:16 Order name: Urine Dipstick-Ancillary; Complete Time: 07:51 [facility] 01/20 06:20 Order name: Urine --Ancillary (enter results); Complete Time: 09:08 eb 01/20 03:31 Order name: IV Saline Lock; Complete Time: 04:17 [facility] 01/20 03:31 Order name: Labs collected and sent; Complete Time: 04:17 [facility] 01/20 03:31 Order name: Urine Dipstick-Ancillary (obtain specimen); Complete Time: 06:16 [facility] 01/20 08:00 Order name: CT Abd/Pelvis - Without Contrast; Complete Time: 09:08 eb Administered Medications: 04:16 Drug: NS 0.9% 1000 ml Route: IV; Rate: 1 bolus; Site: left antecubital; ag7 06:55 Follow up: Response: No adverse reaction; IV Status: Completed infusion; IV Intake: ag7 1000ml 04:16 Drug: morphine 4 mg Route: IVP; Infused Over: 4 mins; Site: left antecubital; ag7 04:36 Follow up: Pain 5/10 Adult; Response: No adverse reaction; Pain is decreased; RASS: ag7 Alert and Calm (0) 04:17 Drug: Zofran (Ondansetron) 4 mg Route: IVP; Site: left antecubital; ag7 04:47 Follow up: Response: No adverse reaction ag7 04:54 Drug: ProTONIX (pantoprazole) 40 mg Route: IVP; Site: left antecubital; ag7 05:34 Follow up: Response: No adverse reaction ag7 05:12 Drug: Potassium Chloride 20 mEq Route: IV; Rate: per protocol; Site: left antecubital; ag7 05:36 Follow up: Response: No adverse reaction ag7 06:55 Follow up: IV Status: Completed infusion; IV Intake: 100ml ag7 07:53 Drug: morphine 4 mg Route: IVP; Infused Over: 4 mins; Site: left antecubital; layton 07:53 Follow up: Response: No adverse reaction layton 07:53 Drug: Zofran (Ondansetron) 4 mg Route: IVP; Site: left antecubital; layton 07:53 Follow up: Response: No adverse reaction layton Disposition Summary: 01/20/22 09:20 Discharge Ordered Location: Home kdr Problem: an acute exacerbation kdr Symptoms: have improved kdr Condition: Stable kdr Diagnosis - Abdominal pain, Generalized kdr - Left sided colitis kdr - Left sided colitis without complications kdr Followup: kdr - With: Private Physician - When: 2 - 3 days - Reason: If symptoms return, Further diagnostic work-up, Recheck today's complaints, Continuance of care, Re-evaluation by your physician Followup: kdr - With: Tom Rosas MD - When: 2 - 3 days - Reason: If symptoms return, Further diagnostic work-up, Recheck today's complaints, Continuance of care, Re-evaluation by your physician Discharge Instructions: - Discharge Summary Sheet kdr - Abdominal Pain, Adult, [id number] kdr - Diarrhea, Adult, [id number] kdr - Colitis kdr Forms: - Medication Reconciliation Form kdr - Thank You Letter kdr - Antibiotic Education kdr - Prescription Opioid Use kdr Prescriptions: - Flagyl 500 mg Oral Tablet - take 1 tablet by ORAL route every 6 hours for 10 days; 40 tablet; Refills: 0, kdr Product Selection Permitted - Cipro 500 mg Oral Tablet - take 1 tablet by ORAL route every 12 hours for 7 days; 14 tablet; Refills: 0, kdr Product Selection Permitted - Tramadol 50 mg Oral Tablet - take 1 tablet by ORAL route every 8 hours as needed; 12 tablet; Refills: 0, kdr Product Selection Permitted Signatures: Dispatcher [employer] Yves Acosta MD MD kdr Ashok Romano MD MD mh7 Gwendolyn Shearer RN RN Gaby Newby RN RN vc1 Minda Acosta RN RN ag7 Corrections: (The following items were deleted from the chart) 07:04 03:32 C.difficile [facility] Ag \\T\\ Toxin AB+LAB.BRZ ordered. EDVA EDVA
--- NOTE | 2022-01-20 09:21 | ER ---
Nurse's Notes [facility] Name: Bella Barron Age: 61 yrs Sex: Female : 1960 Arrival Date: 01/20/2022 Time: 02:18 Bed 17 Private MD: Diagnosis: Abdominal pain, Generalized;Left sided colitis;Left sided colitis without complications Presentation: 01/20 03:18 Chief complaint: Patient states: "I had a colonoscopy Saturday and I started vc1 bleeding bright red blood with clots. They were looking for Chrons. I am also having bad abdominal pain and I'm nauseous. 03:18 Method Of Arrival: Wheelchair vc1 03:42 Coronavirus screen: Vaccine status: Patient reports receiving the 2nd dose of the covid vc1 vaccine. One dose of Abiodun and Abiodun and a dose of pfizer At this time, the client does not indicate any symptoms associated with coronavirus-19. Ebola Screen: No symptoms or risks identified at this time. Initial Sepsis Screen: Does the patient meet any 2 criteria? No. Patient's initial sepsis screen is negative. Does the patient have a suspected source of infection? Yes: Acute abdominal pain. Risk Assessment: Do you want to hurt yourself or someone else? Patient reports no desire to harm self or others. Onset of symptoms was January 20, 2022 at 01:30. 03:42 Acuity: OLEG 3 vc1 Triage Assessment: 03:46 General: Appears in no apparent distress. uncomfortable, Behavior is calm, cooperative, vc1 appropriate for age. Pain: Complains of pain in left lower quadrant Pain does not radiate. Pain currently is 10 out of 10 on a pain scale. EENT: No deficits noted. Neuro: Level of Consciousness is awake, alert, obeys commands, Oriented to person, place, time, situation, Appropriate for age. Cardiovascular: Capillary refill < 3 seconds Patient's skin is warm and dry. Respiratory: Airway is patent Respiratory effort is even, unlabored, Respiratory pattern is regular, symmetrical. GI: Abdomen is round non-distended, Rectal exam: Deferred to physician Stools are reported to be diarrhea. Abd is soft Abdomen is tender to palpation in left lower quadrant Guarding noted Reports lower abdominal pain, diarrhea, rectal bleeding, bloody stool. : No signs and/or symptoms were reported regarding the genitourinary system. Derm: Skin is intact, is healthy with good turgor, Skin temperature is warm. Musculoskeletal: No deficits noted. Historical: - Allergies: 03:46 Iodine; vc1 03:46 Phenergan; vc1 03:46 Rocephin; vc1 - Home Meds: 03:46 Aldactone 25 mg oral tab once daily [Active]; gabapentin 300 mg Oral cap 1 cap twice a vc1 day [Active]; ramelteon 8 mg Oral tab evenings for Sleep-Onset Insomnia [Active]; Ubrelvy 100 mg Oral tab 1 tab daily for Migraine [Active]; Xifaxan 550 mg Oral tab 1 tab 2 times per day [Active]; Zofran 4 mg Oral tab 1 tab prn [Active]; Ultram 50 mg Oral tab prn for Pain [Active]; diphenoxylate-atropine 2.5-0.025 mg/5 mL Oral liqd once daily [Active]; furosemide 20 mg Oral tab 1 tab 2 times per day [Active]; fluoxetine 20 mg Oral cap 1 cap once daily [Active]; aripiprazole 5 mg oral tab 1 tab once daily [Active]; 07:56 Allopurinol Oral [Active]; layton - PMHx: 03:46 Cirrhosis; Colitis; Crohn's; Depression; Liver disease; needs kidney and liver vc1 transplant; - PSHx: 03:46 bowel resection; Cholecystectomy; TIPS procedure; Total abdominal hysterectomy; vc1 - Immunization history:: Adult Immunizations up to date, Client reports receiving the 2nd dose of the Covid vaccine, second dose was Pfizer Client reports receiving the Abiodun \\T\\ Abiodun single-dose vaccine. - Social history:: Smoking status: Patient/guardian denies using tobacco, but has a distant history of tobacco abuse. Screenin:57 Abuse screen: Denies threats or abuse. Nutritional screening: No deficits noted. vc1 Tuberculosis screening: No symptoms or risk factors identified. Fall Risk None identified. Assessment: 04:55 General: Appears in no apparent distress. Behavior is calm, cooperative, appropriate ag7 for age. Pain: Complains of pain in right lower quadrant and left lower quadrant Pain currently is 7 out of 10 on a pain scale. Quality of pain is described as aching, crampy, Pain began suddenly, Is continuous, Alleviated by nothing. Neuro: Level of Consciousness is awake, alert, obeys commands, Oriented to Appropriate for age. Cardiovascular: Heart tones S1 S2 present Capillary refill < 3 seconds in bilateral fingers Patient's skin is warm and dry. Respiratory: Airway is patent Trachea midline Respiratory effort is even, unlabored, Respiratory pattern is regular, symmetrical. GI: Abdomen is non-distended, obese, Last BM was January 20, 2022. Bowel sounds present X 4 quads. Derm: Skin is jaundiced. 06:00 Reassessment: Patient and/or family updated on plan of care and expected duration. Pain ag7 level reassessed. Patient is alert, oriented x 3, equal unlabored respirations, skin warm/dry/pink. c/o pain 7/10 abdomen Patient states feeling better. Vital Signs: 03:42 BP 117 / 65; Pulse 86; Resp 18; Temp 98.4; Pulse Ox 97% ; Weight 71.21 kg; Height 4 ft. vc1 11 in. (149.86 cm); Pain 10/10; 04:36 Pain 5/10; ag7 05:45 BP 110 / 57; Pulse 93; Resp 16 S; Pulse Ox 97% on R/A; Pain 7/10; ag7 07:55 BP 101 / 53; Pulse 82; Resp 17; Pulse Ox 97% ; layton 03:42 Body Mass Index 31.71 (71.21 kg, 149.86 cm) vc1 ED Course: 02:18 Patient arrived in ED. bp1 03:02 Ashok Romano MD is Attending Physician. mh7 03:10 Minda Acosta, RN is Primary Nurse. ag7 03:37 Fecal Leukocyte Stain Sent. vc1 03:37 Ova And Parasites Sent. vc1 03:37 Rotavirus Antigen Sent. vc1 03:37 Stool Culture Sent. vc1 03:46 Triage completed. vc1 03:46 Arm band placed on right wrist. vc1 03:57 Patient has correct armband on for positive identification. Bed in low position. Call vc1 light in reach. Side rails up X2. Adult w/ patient. Pulse ox on. NIBP on. 04:17 CBC with Diff Sent. ag7 04:17 CMP Sent. ag7 04:17 Lipase Sent. ag7 04:18 Fecal Leukocyte Stain Sent. ag7 04:18 Ova And Parasites Sent. ag7 04:18 Rotavirus Antigen Sent. ag7 04:18 Stool Culture Sent. ag7 04:18 Inserted saline lock: 22 gauge in left antecubital area, using aseptic technique. Blood ag7 collected. 05:03 Notified ED physician of a critical lab result(s). K 2.3. ke1 05:18 COVID-19 SARS RT PCR (Document "Date of Onset" if Symptomatic) Sent. ag7 07:13 Attending Physician role handed off by Ashok Romano MD kdr 07:13 Yves French MD is Attending Physician. kdr 07:56 No provider procedures requiring assistance completed. layton 08:13 CT Abd/Pelvis - Without Contrast In Process Unspecified. EDMS 09:20 Tom Roass MD is Referral Physician. kdr 09:37 IV discontinued, intact, Pressure dressing applied. layton Administered Medications: 04:16 Drug: NS 0.9% 1000 ml Route: IV; Rate: 1 bolus; Site: left antecubital; ag7 06:55 Follow up: Response: No adverse reaction; IV Status: Completed infusion; IV Intake: ag7 1000ml 04:16 Drug: morphine 4 mg Route: IVP; Infused Over: 4 mins; Site: left antecubital; ag7 04:36 Follow up: Pain 5/10 Adult; Response: No adverse reaction; Pain is decreased; RASS: ag7 Alert and Calm (0) 04:17 Drug: Zofran (Ondansetron) 4 mg Route: IVP; Site: left antecubital; ag7 04:47 Follow up: Response: No adverse reaction ag7 04:54 Drug: ProTONIX (pantoprazole) 40 mg Route: IVP; Site: left antecubital; ag7 05:34 Follow up: Response: No adverse reaction ag7 05:12 Drug: Potassium Chloride 20 mEq Route: IV; Rate: per protocol; Site: left antecubital; ag7 05:36 Follow up: Response: No adverse reaction ag7 06:55 Follow up: IV Status: Completed infusion; IV Intake: 100ml ag7 07:53 Drug: morphine 4 mg Route: IVP; Infused Over: 4 mins; Site: left antecubital; layton 07:53 Follow up: Response: No adverse reaction layton 07:53 Drug: Zofran (Ondansetron) 4 mg Route: IVP; Site: left antecubital; layton 07:53 Follow up: Response: No adverse reaction layton Medication: 07:56 VIS not applicable for this client. layton Intake: 06:55 IV: 1000ml; Total: 1000ml. ag7 06:55 IV: 100ml; Total: 1100ml. ag7 Outcome: 09:20 Discharge ordered by . kdr 09:37 Discharged to home ambulatory. layton 09:37 Condition: good 09:37 Discharge instructions given to patient, Prescriptions given X 2. 09:38 Patient left the ED. layton Signatures: Dispatcher [employer] EDMS Yves French MD MD [facility] Cindy Barton Maurice, MD MD 7 Lianet-DerekrGwendolyn RN RN Gaby Newby RN RN vc1 Hyun Rincon RN RN 1 Minda Acosta RN RN ag7 Corrections: (The following items were deleted from the chart) 07:04 03:37 C.difficile [facility] Ag \\T\\ Toxin AB+LAB.BRZ drawn and sent. vc1 EDMS 07:04 04:18 C.difficile [facility] Ag \\T\\ Toxin AB+LAB.BRZ drawn and sent. ag7 EDMS
[2022-01-20 10:08] VITALS: TEMP 98.4; O2SAT 97
[2022-01-20 10:13] VITALS: BP 101/53
[2022-01-20 12:10] LABS: C.diff Antigen/Toxin Ag neg : Tox neg (NEG : NEG)
== END 2022-01-20 09:38 | disposition home or self-care (01) ==
LOC: ER 02:15
DX: K51.50 Left sided colitis without complications (principal); F32.A Depression, unspecified; K74.60 Unspecified cirrhosis of liver; Z88.3 Allergy status to other anti-infective agents; Z88.8 Allergy status to other drugs, medicaments and biological substances; Z91.048 Other nonmedicinal substance allergy status; Z20.822 Contact with and (suspected) exposure to COVID-19
CPT/HCPCS: 96365; 96361; 87045; 85025; 36415; 89055; 87177; 81025; 87046; 87209; 81003; 87324; 83690; 80053; 87449; 87425; 74176; 96375; 99284; 96366; U0003; C9113; J3480; J7030; J2405 ×2

== ENCOUNTER 2022-01-21 13:25 | Inpatient (IN) | payer OTHER ==
--- OUTSIDE RECORDS SUMMARY | 2022-01-21 13:34 | XMS REPORT | Continuity of Care Document ---
:[address] [facility] t Address [address] [place] [address] Care Team Providers Name Role Phone Jose Robby Primary Care Physician Rodolfo Díaz Attending Clinician [...] Attending Clinician Mildred FRANKLIN, F. Attending Clinician MD Ping GARCIA Attending Clinician [...] Expiration Date Faustino vasquez MEDICARE A B [id number] 2015 00:00:00 GENERIC MEDICAID [id number] 2021 HMO 00:00:00 Problems Condition Condition Condition Status Onset Resolution Last Treating Co mments Source Name Details Category Date Date Treatment Clinician Date Altered Altered Disease [facility] status status [facility] [...] Added automatic ally from request for surgery [id number] Chronic Chronic Disease Active 2020-08 [facility] kidney [...] Obesity Obesity Disease Active Univers (BMI (BMI 7- ity of 30-39.9) 30-39.9) 00:00: [place] [address] Medical Branch Hematochez Hematochez Disease Active U nivers ia ia 03-06 ity of 00:00: [place] [address] Medical Branch Abdominal Abdominal Disease Active Met [...] Added automatic ally from request for surgery [id number] Bipolar Bipolar Disease Active Methodi disorder, disorder, [...] 2015-08 Univers encephalop encephalop 09-13 it y 00:00: [place] [facility] Hepatic [...] shoulder 4-25 ity of pain pain 00:00: [place] [facility] 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 4- ity of 00:00: [place] [address] Medical Branch Anxiety Anxiety Disease Active Univers and and 4- [place] of depression [place] [facility] [place] Rectal Rectal Disease Active 2014-08 Univers bleed bleed 2-03 ity of 00:00: [place] [address] Medical Branch Crohn Crohn Disease Active [facility] St disease disease [facility] Allergies, Adverse Reactions, Alerts Allergy Allergy Status Severity Reaction(s) Onset Inactive Treating Comm ents Source Name Type Date Date Clinician FISH Allergy Active [facility] CONTAINI 2- NG 00:00: PRODUCTS 00 SHELLFIS Allergy Active [facility] H 2 CONTAINI 00:00: NG 00 PRODUCTS Eggshell Drug Active [facility]07 [facility] EGGSHELL Allergy Active [facility] MEMBRANE 1- 00:00: 00 CEFTRIAX Allergy Active [facility]02 [facility] IODINE Allergy [facility] PROMETHA Allergy [...] s to drug Ceftriax Propensi Active Itching 2017- Metho di one ty to 10-06 st adverse 00:00: Hospita reaction 00 l s to drug Ceftriax Propensi Active Itching 2017-0 Unive rs one ty to 10-06 ity of adverse 00:00: [place] reaction 00 Medical s Branch Prometha Propensi Active Other - See 2017-0 Severe U nivers zine ty to comments 3- confusion ity o f adverse 00:00: [place] reaction 00 Medical s Branch Eggshell Propensi Active Diarrhea 2017-0 Egg yoke Me thodi Membrane ty to 10-08 st adverse 00:00: Hospita reaction 00 l s to drug Eggshell Propensi Active Diarrhea 2017-0 Egg yoke Un linda Membrane ty to 2 ity of adverse 00:00: [place] reaction 00 Medical s Branch Prometha Propensi Active Other (See 2017-0 Severe Me thodi zine ty to Comments) 1- confusion st adverse 00:00: Hospita reaction 00 l s to drug Shellfis Propensi Active Anaphylaxis 2016-0 M ethodi h ty to 05-05 st Derived adverse 00:00: Hospita reaction 00 l s to drug Shellfis Propensi Active Anaphylaxis 2016-0 U nivers h ty to 05-05 ity of Derived adverse 00:00: [place] reaction 00 Medical s Branch Iodine Propensi Active Anaphylaxis 2016-0 SOB, Met [facility] ty to 05-01 wheezing, st adverse 00:00: "my Hospita reaction 00 throat l s to closes drug up."*pt states cannot have topical nor IV Iodine Propensi Active Anaphylaxis Uni vers ty to 818 ity of adverse 00:00: [place] reaction 00 Medical s Branch Phenerga Adverse Active Info Not Commo n n Reaction Available [facility] Iodine Adverse Active Info Not Common Reaction Available [facility] NO KNOWN Allergy Active [facility] ALLERGIE S Family History Family Member Diagnosis Comments Start Date Stop Date Source Natural father No Known Problems Met [facility] Natural mother No Known Problems Met [facility] Social History Social Habit Start Date Stop Date Quantity Comments Source Exposure to Not sure University of SARS-CoV-2 (event) [facility] History SDOH [facility] Alcohol Frequency Hospita l History SDOH [facility] Alcohol Std Drinks Hospit al History SDOH [facility] Alcohol Binge Hospital Alcohol intake 2021-08-30 2021-08-30 Ex-drinker [facility] 00:00:00 00:00:00 (finding) Hospital Tobacco use and 2019-01-30 2019-01-30 Never used Universit y of exposure 00:00:00 00:00:00 [facility] History of tobacco 1979-01-30 2018-08-12 Cigarette Smoker University of use 00:00:00 00:00:00 [facility] Cigarettes smoked 2016-11-22 2016-11-[address] current (pack per 00:00:00 00:00:00 Hospita l day) - Reported Cigarette 2016-11-22 2016-11-22 [facility] pack-years 00:00:00 00:00:00 Hospital Tobacco Comment 2016-09-12 2016-09-12 smokes 5 [facility] 00:00:00 00:00:00 cigarettes per Hospital day Alcohol Comment 2016-05-02 2016-05-02 Former social Method ist 00:00:00 00:00:00 alcohol use, quit Hospita l several years ago; denies history of heavy alcohol use Sex [birth year] At [birth year] [facility] 00:00:00 00:00:00 Hospital Smoking Status Start Date Stop Date Source Never smoker [facility] Ex-smoker 2016-11-22 00:00:00 2016-11-22 00:00:[address] [facility] Medications Ordered Filled Start Stop Current Ordering Indication Dosage Frequency Signature Comments Components Source Medication Medication Date Date Medication? Clinician (SIG) Name Name estradioL Yes [id number] Apply 1g Univers (ESTRACE) 2-21 vaginally ity o f 0.01 % (0.1 00:00: at bedtime [place] mg/gram) 00 every Medical vaginal night for Branch cream 2 weeks and then apply 1g vaginally at bedtime 3 times per week (Saturday//) nystatin Yes [id number] Apply to U nivers (NYSTOP) 2-21 area(s) 3 ity of 100,000 00:00: (three) [place] unit/gram 00 times Medical powder daily. Branch spironolact Yes 100mg Take 100 U nivers one 100 mg 2-16 mg by ity of tablet 14:28: mouth. [address] methylnaltr Yes Take by linda exone 2-16 mouth. ity of bromide 14:28: [place] (RELISTOR 49 Medical ORAL) [place] potassium Yes Take by [facility] (POTASSIMIN 2-16 mouth once it y of ORAL) 14:28: now. [address] cyanocobala Yes 1000ug Inject CH I [...] [facility]ukes tablet 16:27: mouth Medical 53 daily. [place] topiramate Yes 1{tbl} QD Take [address] (TOPAMAX) 1-24 tablet by [facility] 50 MG 16:27: mouth Medical tablet 53 nightly. [place] eszopiclone Yes 2mg Take [address] (LUNESTA) 2 1-24 by mouth Luke s MG tablet 16:27: every Medical 52 night as Center needed. gabapentin Yes 1{capsu Q.5D Take [address] (NEURONTIN) 1-24 le} capsule by Susanna kes 300 MG 16:27: mouth 2 Medical capsule 52 (two) Center times daily. lactulose Yes 1{packe Q.[id number] Take [address] (Kristalose 1-24 t} [id number] packet by Gurpreet ) 20 gram 16:27: 3D mouth 3 Medic al packet 52 (three) Center times daily. azithromyci 2021-0 202- No 500mg QD Take 1 Me [...] 1000ug Q30D Inject Me thodi min 1,000 -14 1,[address] mcg/mL 18:28: into the [...] daily as l needed for anxiety. Per [place] Prescripti on Drug Monitoring Program records: Last [...] tablet 18:28: nightly. Hosp page [address] [facility] Prescripti on Drug Monitoring Program records: Last filled: 08/09/21 Quantity: 30 Days Supply: 30 traMADoL 2021-0 Yes 50mg Q4H Take 50 mg Met hodi (ULTRAM) 50 1-[address] mg tablet 18:28: every 4 Hospi ta 48 (four) l hours as needed for moderate pain. Per [place] Prescripti on Drug Monitoring Program records: Last filled: 01/16/21 Quantity: 30 Days Supply: 5 zinc 2021-0 2021- No 1{capsu QD Take 1 Methodi sulfate 08-22 le} capsule by st (ZINCATE) 00:00: 05:59 mouth Hospit a 50 mg zinc 00 :00 daily for l (220 mg) 30 days. capsule thiamine 2021-0 2021- No 100mg QD Take 100 Met hodi mononitrate 08-21-[address] , vit B1, 10:29: 00:00 mouth Hospit a (B-1) 100 47 :00 daily. l mg tablet QUEtiapine 2021- No 50mg QD Take 50 mg Methodi (SEROquel) 08-21-[address] 200 MG 10:29: 00:00 nightly. Hospit a tablet 47 :00 l SUMAtriptan Yes [id number] 50mg Q24H Take 1 Methodi (Imitrex) -10 tablet (50 st 50 MG 00:00: mg total) Hospita tablet 00 by mouth l daily as needed for migraine for up to 30 doses. May repeat in 2 hours if unresolved . Max dose 200 mg/day escitalopra 2021- No 10mg QD Take 1 Met hodi m (LEXAPRO) 08-21-10 tablet (10 s t 10 MG 00:00: 05:59 mg total) Hospit a tablet 00 :00 by mouth l nightly for 30 days. pantoprazol 2021- No [id number] 40mg QD Take 1 Methodi e 08-21-10 tablet (40 st (PROTONIX) 00:00: 05:59 mg [...] 100mg QD Take 1 Metho di mononitrate 08-21-[address] , vit B1, 00:00: 05:59 (100 mg Hosp page (B-1) 100 00 :00 total) by l mg tablet mouth daily for 30 days. lactulose 2021- No 20g Q.25D Take 1 Meth erasto (Kristalose -05 13-10 packet (20 s t ) 20 gram [...] days. Take immediatel y before bedtime ondansetron 2020-08- No Metho di (ZOFRAN) 4 0-04 01-08 st MG tablet 00:00: 00:00 Hospita 00 :00 l zinc No 220mg QD Take 1 Methodi sulfate 3-15 04-[address] (ZINCATE) 00:00: 04:59 (220 mg Hosp page 220 (50) mg 00 :00 total) by l capsule mouth daily for 30 days. methylPREDN 2020- No follow Met hodi ISolone 10-09 03-[address] (MEDROL 00:00: 05:59 directions [...] day for 30 days. gabapentin No 300mg Q.[id number] Take 1 Methodi (NEURONTIN) 04-[id number] 300 mg 00:00: 00:00 3D (300 mg Hospita capsule 00 :00 total) by l mouth 3 (three) times a day for 30 days. pantoprazol No [id number] 40mg QD Take 1 Methodi e 01-24 tablet (40 st (PROTONIX) 00:00: 00:00 mg total) H ospita 40 MG EC 00 :00 by mouth l tablet every morning. SUMAtriptan No [id number] 50mg Q24H Take 1 Methodi (Imitrex) 6-15 08 tablet (50 st 50 MG 00:00: 00:00 mg total) Hospit a tablet 00 :00 by mouth l daily as needed for migraine for up to 30 doses. May repeat in 2 hours if unresolved . Max dose 200 mg/day eszopiclone Yes 2mg Take 2 mg U nivers 2 mg tablet 03-09 by mouth ity of 16:42: at [place] 13 bedtime. Medical Branch GABAPENTIN Yes Take by Uni vers ORAL 03-09 mouth. ity of 16:42: [place] 13 Medical Branch traMADOL 50 Yes 50mg Take 50 mg Univers mg tablet 03-09 by mouth ity of 16:42: as needed [place] [id number] for Pain Medical (scale Branch 7-10). lactulose Yes [id number] 20g Take 1 Un linda (KRISTALOSE 03-09 Packet by ity of ) 20 gram 00:00: mouth 3 [place] packet 00 (three) Medical times Branch daily. ondansetron Yes [id number] 8mg Take 2 Univers 4 mg tablet 4-01 tablets by it y of 00:00: mouth [place] 00 every 8 Medical (eight) Branch hours as needed for Nausea and Vomiting (N/V). butalbital- Yes [id number] 1{capsu Take 1 Univers aspirin-caf 3-25 le} capsule by it y of feine 00:00: mouth [place] 50-325-40 00 every 4 Medical mg per (four) Branch capsule hours as needed for Pain (headache unrelieved wtih other medication s). XIFAXAN 550 2016-08 Yes [id number] TAKE ONE Univers mg tablet 1-27 TABLET BY ity o f 00:00: MOUTH 2 [place] 00 TIMES A Medical DAY Branch PANTOPRAZOL 2016-08 Yes [id number] TAKE ONE Univers E 40 mg EC [...] 3 00 (three) Medical times Branch daily. furosemide 2015-08 Yes 40mg Take 40 mg U nivers 40 mg 0-10 by mouth. ity of tablet 00:00: [place] 00 Medical Branch Allopurinol Allopurinol Yes Fernando 2 tablets Common D[facility]az [facility] Immunizations Ordered Filled Immunization Date Status Comments [facility] e Immunization Name Name Influenza Virus 2021-04-12 Completed Universit y of Vaccine 00:00:00 [facility] SARS-COV-2 COVID-19 2020-12-14 Completed Unive rsity of YANIRA/J&J VACCINE 00:00:00 [facility] Influenza Virus 2018-04-21 Completed Universit y of Vaccine (3+ yrs) 00:00:00 [facility] dical Branch Influenza (IM) 2018-04-21 Completed [facility] Preservative Free 00:00:00 Hospita l Pneumococcal 13 2016-05-08 Completed Universit y of Conjugate, PCV13 00:00:00 [facility] (Prevnar 13) Branch Pneumococcal 2016-05-08 Completed [facility] Conjugate 13-Valent 00:00:00 Hospi mateo FLUCELVAX QUAD PF 2016-05-[address] 00:00:00 Hospital Vital Signs Vital Name Observation Time Observation Value Comments Source Systolic blood 2021-11-16 18:59:00 111 mm[Hg] Univer sity of pressure [facility] Diastolic blood 2021-11-16 18:59:00 74 mm[Hg] Unive rsity of pressure [facility] Heart rate 2021-11-16 18:59:00 75 /min [facility] Body temperature 2021-11-16 18:59:00 36.67 Georgette Univ ersity of [facility] Body height 2021-11-16 18:59:00 149.9 cm [facility] Body weight 2021-11-16 18:59:00 80.559 kg [facility] BMI 2021-11-16 18:59:00 35.87 kg/m2 [facility] HEIGHT 2021-09-02 15:44:00 149.9 cm WEIGHT 2021-09-02 15:44:00 87.091 kg HEIGHT 2021-09-02 15:44:00 149.9 cm WEIGHT 2021-09-02 15:44:00 87.091 kg Systolic blood 2021-09-11 19:42:00 125 mm[Hg] [facility] Diastolic blood 2021-09-11 19:42:00 60 mm[Hg] [facility] Heart rate 2021-09-11 19:42:00 98 /min [facility] Body temperature 2021-09-11 19:42:00 35.67 Georgette [facility] Respiratory rate 2021-09-11 19:42:00 18 /min [facility] Oxygen saturation in 2021-09-11 19:42:00 100 /min [facility] Arterial blood by Medical Ce nter Pulse oximetry Body height 2021-09-02 15:44:00 149.9 cm [facility] Body weight 2021-09-02 15:44:00 87.091 kg [facility] BMI 2021-09-02 15:44:00 38.78 kg/m2 [facility] Systolic blood 2021-08-31 06:30:00 119 mm[Hg] [facility] pressure Diastolic blood 2021-08-31 06:30:00 68 mm[Hg] [facility] pressure Heart rate 2021-08-31 06:30:00 70 /min [facility] Respiratory rate 2021-08-31 06:30:00 16 /min [facility] [place] [facility] Oxygen saturation in 2021-08-31 06:30:00 97 /min [facility] Arterial blood by Pulse oximetry Body temperature 2021-08-31 04:04:09 36.83 Georgette [facility] [place] [facility] Body height 2021-08-31 04:04:[address] [facility] Body weight 2021-08-31 04:04:[address] [facility] BMI 2021-08-31 04:04:00 39.79 kg/m2 [facility] Procedures Procedure Date / Time Performing Clinician Source Performed HEPATIC FUNCTION PANEL 2021-09-11 05:33:00 Kaim, Niya [facility] CBC W/PLT COUNT & AUTO 2021-09-11 05:33:00 KaimNiya [facility] PROTHROMBIN TIME/INR 2021-09-11 05:33:[address] [facility] BASIC METABOLIC PANEL (7) 2021-09-11 05:33:00 Niya Cartagena [facility] MAGNESIUM 2021-09-11 05:33:00 Selma Lu [facility] CBC W/PLT COUNT & AUTO 2021-09-11 05:33:00 KaimNiya [facility] HEPATIC FUNCTION PANEL 2021-09-10 06:52:00 KaimNiya [facility] CBC W/PLT COUNT & AUTO 2021-09-10 06:52:00 KaimNiya [facility] PROTHROMBIN TIME/INR 2021-09-10 06:52:[address] [facility] BASIC METABOLIC PANEL (7) 2021-09-10 06:52:00 Niya Cartagena [facility] MAGNESIUM 2021-09-10 06:52:00 Selma Lu [facility] CBC W/PLT COUNT & AUTO 2021-09-10 06:52:00 KaNiya rm [facility] HEPATIC FUNCTION PANEL 2021-09-09 05:51:00 Kaim Niya [facility] CBC W/PLT COUNT & AUTO 2021-09-09 05:51:00 KaimNiya [facility] PROTHROMBIN TIME/INR 2021-09-09 05:51:[address] [facility] BASIC METABOLIC PANEL (7) 2021-09-09 05:51:00 KaimNiya [facility] CBC W/PLT COUNT & AUTO 2021-09-09 05:51:00 Lizzjag Niya [facility] (CELLAVISION MANUAL DIFF) 2021-09-09 05:51:00 Niya Cartagena on [facility] AMMONIA 2021-09-08 10:54:00 Selma Lu [facility] PHOSPHORUS 2021-09-08 05:14:00 Isabella [facility] HEPATIC FUNCTION PANEL 2021-09-08 05:14:00 KaNiya rm [facility] CBC W/PLT COUNT & AUTO 2021-09-08 05:14:00 KaimNiya Cindy [facility] PROTHROMBIN TIME/INR 2021-09-08 05:14:[address] [facility] BASIC METABOLIC PANEL (7) 2021-09-08 05:14:00 Niya Cartagena on [facility] CBC W/PLT COUNT & AUTO 2021-09-08 05:14:00 Niya Cartagena [facility] (CELLAVISION MANUAL DIFF) 2021-09-08 05:14:00 Niya Cartagena on [facility] PHOSPHORUS 2021-09-07 05:37:00 Isabella, [facility] HEPATIC FUNCTION PANEL 2021-09-07 05:37[facility] W[facility] & AUTO 2021-09-07 05:37:00 Niya Cartagena [facility] PROTHROMBIN TIME/INR 2021-09-07 05:37:[address] [facility] BASIC METABOLIC PANEL (7) 2021-09-07 05:37:00 KaimNiya [facility] CBC W/PLT COUNT & AUTO 2021-09-07 05:37:00 Niya Cartagena [facility] (CELLAVISION MANUAL DIFF) 2021-09-07 05:37:00 KaimNiya [facility] PROTHROMBIN TIME/INR 2021-09-06 06:37:[address] [facility] BASIC METABOLIC PANEL (7) 2021-09-06 06:37:00 Isabella, Giannanalin i [facility] PHOSPHORUS 2021-09-06 06:37:00 Isabella Giannanalini [facility] PROTHROMBIN TIME/INR 2021-09-05 14:31:[address] [facility] BASIC METABOLIC PANEL (7) 2021-09-05 14:31:00 Isabella, Mrinalin i [facility] PHOSPHORUS 2021-09-05 14:31:00 Isabella Giannanalini [facility] CBC W/PLT COUNT & AUTO 2021-09-05 14:31:00 Isabella Giannacarlyleini C [facility] HEPATIC FUNCTION PANEL 2021-09-05 14:31:00 Juve Masonini C [facility] CBC W/PLT COUNT & AUTO 2021-09-05 14:31:00 Juve Masonini C [facility] (CELLAVISION MANUAL DIFF) 2021-09-05 14:31:00 Isabella Mrinalin i [facility] C. DIFFICILE GDH TOXIN 2021-09-04 11:52:00 Jaqueline Vitale [facility] CT ABDOMEN/PELVIS WITH IV 2021-09-04 09:03:00 Mirian Goodman [facility] CONTRAST [facility] CT CHEST WITH IV CONTRAST 2021-09-04 09:03:00 Isabella Giannanalin i [facility] CBC W/PLT COUNT & AUTO 2021-09-04 04:39:00 Lucia Lawrence [facility] COMPREHENSIVE METABOLIC 2021-09-04 04:39:00 Lucia Lawrence [facility] MAGNESIUM 2021-09-04 04:39:00 Lucia Lawrence [facility] PHOSPHORUS 2021-09-04 04:39:00 Lucia Lawrence [facility] CBC W/PLT COUNT & AUTO 2021-09-04 04:39:00 Lucia Lawrence [facility] (CELLAVISION MANUAL DIFF) 2021-09-04 04:39:00 Lucia Lawrence sa [facility] HEPATITIS A ANTIBODY, IGG 2021-09-03 12:02:00 Juve Masonin i [facility] HEPATITIS B CORE ANTIBODY, 2021-09-03 12:02:00 Gianna Masonnali ni [facility] TOTAL [facility] HEPATITIS B SURFACE 2021-09-03 12:02:00 Juve Masonini [facility] ANTIBODY [facility] HEPATITIS B SURFACE 2021-09-03 12:02:00 Juve Masonini [facility] ANTIGEN [facility] HEPATITIS C ANTIBODY 2021-09-03 12:02:00 Zara Mason [facility] CBC W/PLT COUNT & AUTO 2021-09-03 12:01:00 Lucia Lawrence [facility] COMPREHENSIVE METABOLIC 2021-09-03 12:01:00 Lucia Lawrence [facility] MAGNESIUM 2021-09-03 12:01:00 Lucia Lawrence [facility] PHOSPHORUS 2021-09-03 12:01:00 Lucia aLwrence [facility] PROTHROMBIN TIME/INR 2021-09-03 12:01:00 Jr White [facility] CBC W/PLT COUNT & AUTO 2021-09-03 12:01:00 Lucia Lawrence [facility] (CELLAVISION MANUAL DIFF) 2021-09-03 12:01:00 Lucia Lawrence sa [facility] BLOOD CULTURE 2021-09-03 11:59:00 Lucia Lawrence [facility] OVA AND PARASITE 2021-09-02 09:44:00 Troy Awad [facility] GI PATHOGEN PROFILE BY PCR 2021-09-02 09:44:00 Troy Awad [facility] BLOOD CULTURE 2021-09-02 06:03:00 Lucia Lawrence [facility] CBC W/PLT COUNT & AUTO 2021-09-02 06:03:00 Lucia Lawrence [facility] COMPREHENSIVE METABOLIC 2021-09-02 06:03:00 Lucia Lawrence [facility] MAGNESIUM 2021-09-02 06:03:00 Lucia Lawrence [facility] PHOSPHORUS 2021-09-02 06:03:00 Lucia Lawrence [facility] C-REACTIVE PROTEIN 2021-09-02 06:03:00 Lucia Lawrence [facility] CBC W/PLT COUNT & AUTO 2021-09-02 06:03:00 Lucia Lawrence [facility] (CELLAVISION MANUAL DIFF) 2021-09-02 06:03:00 Lucia Lawrence sa [facility] IRON, TIBC, % SAT. 2021-09-02 06:01:00 Lucia Lawrence [facility] (WITHOUT FERRITIN) [facility] r VITAMIN B12 AND FOLATE 2021-09-02 06:01:00 Lucia Lawrence [facility] CT BRAIN WITHOUT IV 2021-09-02 02:39:00 Lucia Lawrence [facility] CONTRAST [facility] US ABDOMEN LIMITED 2021-09-02 02:09:00 Lucia Lawrence [facility] URINE CULTURE 2021-09-02 01:29:00 Lucia Lawrence [facility] URINALYSIS W/ REFLEX URINE 2021-09-02 01:29:[address] [facility] XR CHEST 1 VIEW PORTABLE / 2021-09-02 01:02:00 Lucia Lawrence [facility] BEDSIDE [facility] CBC W/PLT COUNT & AUTO 2021-09-01 22:55:00 Lucia Lawrence [facility] LACTIC ACID, VENOUS 2021-09-01 22:55:00 [facility] 2021-09-01 22:55:00 [facility] 2021-09-01 22:55:00 [facility] BASIC METABOLIC PANEL (7) 2021-09-01 22:55:00 Lucia Lawrence sa [facility] MAGNESIUM 2021-09-01 22:55:00 Lucia Lawrence [facility] PHOSPHORUS 2021-09-01 22:55:00 [facility] W/PLT COUNT & AUTO 2021-09-01 22:55:00 [facility]) 2021-09-01 22:55:00 Lucia Lawrence [facility] POCT-GLUCOSE METER 2021-09-01 22:36:00 Dawna Anguiano [facility] CT ABDOMEN PELVIS WO 2021-08-31 05:50:00 [facility] CONTRAST [facility] HC COMPLETE BLD COUNT 2021-08-31 04:21:00 [facility] W/AUTO DIFF [facility] COMPREHENSIVE METABOLIC 2021-08-31 04:21:00 [facility] PANEL [facility] LACTIC ACID, I-STAT 2021-08-31 04:21:00 [facility] ESTIMATED GFR 2021-08-31 04:21:00 [facility] SPIROMETRY, DIFFUSION, 2021-08-25 19:27:26 Davina [facility] LUNG VOLUMES, MIPS/MEPS XR CHEST 2 VW 2021-08-25 18:00:20 [facility]EX 2021-08-25 17:59:56 [facility] POC GLUCOSE 2021-08-25 13:51:00 Jennifer Ghosh spital SALEEM-POSEY VIRUS 2021-08-25 11:08:00 [facility] COMPLETE BLD COUNT 2021-08-25 11:08:[address] [facility] W/AUTO DIFF COMPREHENSIVE METABOLIC 2021-08-25 11:08:00 [facility] PROTHROMBIN TIME WITH INR 2021-08-25 11:08:00 Jennifer Ghosh [facility] ESTIMATED GFR 2021-08-25 11:08:00 Davina Jennifer [facility] spital POC GLUCOSE 2021-08-25 03:18:00 Jennifer Ghosh spital POC GLUCOSE 2021-08-25 00:22:00 [facility] POC GLUCOSE 2021-08-24 19:43:00 [facility] CREATININE LEVEL, URINE, 2021-08-24 18:13:00 Jennifer Ghosh [facility] TIMED PROTEIN, URINE, TIMED 2021-08-24 18:13:00 [facility] SELECTIVE CORONARY 2021-08-24 16:44:00 Cabrera Fierro [facility] ANGIOGRAPHY [place] HC COMPLETE BLD COUNT 2021-08-24 11:01:00 [facility] W/AUTO DIFF [place] BASIC METABOLIC PANEL 2021-08-24 11:01:00 [facility] HEPATIC FUNCTION PANEL 2021-08-24 11:01:00 [facility] [place] MAGNESIUM LEVEL 2021-08-24 11:01:00 Alma Girard spital [facility] PROTHROMBIN TIME WITH INR 2021-08-24 11:01:00 [facility] ESTIMATED GFR 2021-08-24 11:01:00 Ting Alma Pierson spital [place] POC GLUCOSE 2021-08-24 03:07:00 Tati Ghoshg [facility] POC GLUCOSE 2021-08-24 00:11:00 Jennifer Ghosh COVID-19 QUALITATIVE 2021-08-23 22:15:[address] [facility] RT-PCR POC GLUCOSE 2021-08-23 19:17:00 Jennifer Ghosh spital POC GLUCOSE 2021-08-23 14:05:00 Jennifer Ghosh HC COMPLETE BLD COUNT 2021-08-23 11:49:00 [facility] W/AUTO DIFF [facility] BASIC METABOLIC PANEL 2021-08-23 11:49:00 [facility] HEPATIC FUNCTION PANEL 2021-08-23 11:49:00 [facility] MAGNESIUM LEVEL 2021-08-23 11:49:00 Ting Alma Pierson [facility] PROTHROMBIN TIME WITH INR 2021-08-23 11:49:00 [facility] ALPHA FETOPROTEIN 2021-08-23 11:49:00 [facility] ALPHA-1 ANTITRYPSIN LEVEL 2021-08-23 11:49:00 [facility] ANTI SMOOTH MUSCLE AB 2021-08-23 11:49:00 [facility] SCREEN C-REACTIVE PROTEIN 2021-08-23 11:49:00 [facility] CANCER ANTIGEN 125 2021-08-23 11:49:00 [facility] CANCER ANTIGEN 19-9 2021-08-23 11:49:00 [facility] CARCINOEMBRYONIC ANTIGEN 2021-08-23 11:49:00 [facility] (CEA) CERULOPLASMIN LEVEL 2021-08-23 11:49:00 [facility] CORTISOL LEVEL, RANDOM 2021-08-23 11:49:00 [facility] CORTISOL, FREE BY 2021-08-23 11:49:00 [facility] ED/LC-MS/MS CYTOMEGALOVIRUS AB, IGG 2021-08-23 11:49:00 [facility] CYTOMEGALOVIRUS AB, IGM 2021-08-23 11:49:00 [facility] DRUG KIM 9, SER/THAIS, SCRN 2021-08-23 11:49:00 [facility] W/RFLX TO CONF FERRITIN LEVEL 2021-08-23 11:49:00 [facility] FIBRINOGEN 2021-08-23 11:49:00 [facility] HEPATITIS A ANTIBODY IGM 2021-08-23 11:49:00 [facility] HEPATITIS A ANTIBODY TOTAL 2021-08-23 11:49:00 [facility] HEPATITIS B CORE ANTIBODY 2021-08-23 11:49:00 [facility] TOTAL HEPATITIS B SURFACE 2021-08-23 11:49:00 [facility] ANTIBODY HEPATITIS B SURFACE 2021-08-23 11:49:00 [facility] ANTIGEN HEPATITIS C ANTIBODY 2021-08-23 11:49:00 [facility] HIV AG/AB COMBINATION 2021-08-23 11:49:00 [facility] HIV-1 RNA, QUALITATIVE TMA 2021-08-23 11:49:00 [facility] HLA TRANSPLANT EVALUATION 2021-08-23 11:49:00 [facility] LIPID PANEL 2021-08-23 11:49:00 [facility] BARBITURATES, S/P, QUANT 2021-08-23 11:49:00 [facility] PARTIAL THROMBOPLASTIN 2021-08-23 11:49:00 [facility] TIME (PTT) PHOSPHATIDYLETHANOL, BLOOD 2021-08-23 11:49:00 [facility] PHOSPHORUS LEVEL 2021-08-23 11:49:00 [facility] PREALBUMIN LEVEL 2021-08-23 11:49:00 [facility] SERUM ELECTROPHORESIS 2021-08-23 11:49:00 [facility] SYPHILIS TREPONEMA SCREEN 2021-08-23 11:49:00 [facility] WITH RPR CONFIRMATION (REVERSE ALGORITHM) T3, FREE 2021-08-23 11:49:00 [facility] TB T-SPOT 2021-08-23 11:49:00 [facility] TOTAL IRON BINDING 2021-08-23 11:49:00 [facility] CAPACITY ZINC LEVEL, SERUM 2021-08-23 11:49:00 [facility] ESTIMATED GFR 2021-08-23 11:49:00 Alma Girard spimateo [facility] SINGLE ANTIGEN BEADS 2021-08-23 11:49:00 [facility] C1Q CLASS 1 & 2 ANTIBODY 2021-08-23 11:49:[address] [facility] CT CHEST WO CONTRAST 2021-08-23 04:25:00 [facility] POC GLUCOSE 2021-08-23 02:55:00 Jennifer hGosh US CAROTID DUPLEX 2021-08-23 02:40:00 [facility] BILATERAL TTE COMPLETE, WO CONTRAST, 2021-08-22 23:47:00 [facility] W AGITATED SALINE ([id number]) US ABDOMEN COMPLETE 2021-08-22 22:30:00 [facility] ECG 12-LEAD 2021-08-22 21:31:09 [facility] POC GLUCOSE 2021-08-22 13:43:00 Jennifer Ghosh HC COMPLETE BLD COUNT 2021-08-22 10:59:00 [facility] W/AUTO DIFF [facility] BASIC METABOLIC PANEL 2021-08-22 10:59:00 [facility] HEPATIC FUNCTION PANEL 2021-08-22 10:59:00 [facility] MAGNESIUM LEVEL 2021-08-22 10:59:00 Alma Girard spital [place] PHOSPHORUS LEVEL 2021-08-22 10:59:00 Alma Girard H ospital [place] PROTHROMBIN TIME WITH INR 2021-08-22 10:59:00 [facility] 2021-08-22 10:59:00 Alma Girard spital [place] POC GLUCOSE 2021-08-22 03:06:00 Jennifer Ghosh Ho spital POC GLUCOSE 2021-08-22 00:27:00 Jennifer Ghosh Ho spital POC GLUCOSE 2021-08-21 19:09:00 Jennifer Ghosh Ho spital POC GLUCOSE 2021-08-21 13:46:00 Alma Girard spital [place] HC COMPLETE BLD COUNT 2021-08-21 10:56:00 Ting Pierson [facility]/AUTO DIFF [facility] BASIC METABOLIC PANEL 2021-08-21 10:56:00 [facility] 2021-08-21 10:56:[address] [facility] MAGNESIUM LEVEL 2021-08-21 10:56:00 Alma Girard spital [place] PHOSPHORUS LEVEL 2021-08-21 10:56:00 Alma Girard ospital [place] PROTHROMBIN TIME WITH INR 2021-08-21 10:56:00 [facility]FR 2021-08-21 10:56:00 Alma Girard spital [place] POC GLUCOSE 2021-08-21 03:20:00 Alma Girard spital [place] POC GLUCOSE 2021-08-20 14:56:00 Jennifer Ghosh Ho spital HC COMPLETE BLD COUNT 2021-08-20 10:57:00 [facility] BASIC METABOLIC PANEL 2021-08-20 10:57:00 Ting Dangelo [facility] HEPATIC FUNCTION PANEL 2021-08-20 10:57:00 Ting Pierson, [facility] [place] MAGNESIUM LEVEL 2021-08-20 10:57:00 Alma Girard spital [place] PHOSPHORUS LEVEL 2021-08-20 10:57:00 Alma Girard ospimateo Self PROTHROMBIN TIME WITH INR 2021-08-20 10:57:00 [facility]FR 2021-08-20 10:57:00 Alma Girard spital [place] POC GLUCOSE 2021-08-20 02:42:00 Ting Alma Pierson spital [place] POC GLUCOSE 2021-08-19 20:04:00 Alma Girard HC COMPLETE BLD COUNT 2021-08-19 11:38:00 [facility] [place] BASIC METABOLIC PANEL 2021-08-19 11:38:00 [facility] FUNCTION [facility]EL 2021-08-19 11:38:00 [facility] [place] MAGNESIUM LEVEL 2021-08-19 11:38:00 Alma Girardalo PHOSPHORUS LEVEL 2021-08-19 11:38:00 Alma Girard ospimateo Self PROTHROMBIN TIME WITH INR 2021-08-19 11:38:00 [facility] GFR 2021-08-19 11:38:00 Alma Girard spital [place] POC GLUCOSE 2021-08-19 03:14:00 Alma Girard spital [place] POC GLUCOSE 2021-08-18 23:30:00 Alma Girard spital [place] POC GLUCOSE 2021-08-18 15:37:00 Alma Girard URINE CULTURE 2021-08-18 12:53:00 Alma Girard URINALYSIS SCREEN AND 2021-08-18 11:31:00 [facility] WITH REFLEX TO [facility] CULTURE LACTIC ACID LEVEL, SEPSIS 2021-08-18 10:21:00 [facility] - NOW AND REPEAT 2X EVERY 3 HOURS HC COMPLETE BLD COUNT 2021-08-18 10:21:00 [facility] W/AUTO DIFF [facility] BASIC METABOLIC PANEL 2021-08-18 10:21:00 [facility] HEPATIC FUNCTION PANEL 2021-08-18 10:21:00 [facility] MAGNESIUM LEVEL 2021-08-18 10:21:00 [facility] Sabianist Ho spital [facility] PHOSPHORUS LEVEL 2021-08-18 10:21:00 [facility]esh[facility] o[facility]ital [facility] PROTHROMBIN TIME WITH INR 2021-08-18 10:21:00 [facility] ESTIMATED GFR 2021-08-18 10:21:00 [facility] HospitalAlma Ho spital [facility] LACTIC ACID LEVEL, SEPSIS 2021-08-18 07:56:00 [facility] - NOW AND REPEAT 2X EVERY 3 HOURS BLOOD CULTURE, AEROBIC & 2021-08-18 05:00:00 [facility] ANAEROBIC [facility] ECG 12-LEAD 2021-08-18 04:24:[address] [facility] [address] ABDOMEN PELVIS WO 2021-08-18 04:19:03 [facility] CONTRAST CT HEAD WO CONTRAST 2021-08-18 04:18:21 [facility] LACTIC ACID LEVEL, SEPSIS 2021-08-18 03:37:00 [facility] - NOW AND REPEAT 2X EVERY 3 HOURS B NATRIURETIC PEPTIDE 2021-08-18 03:37:00 [facility] PROTHROMBIN TIME WITH INR 2021-08-18 03:20:00 [facility] AMMONIA LEVEL 2021-08-18 03:20:00 [facility] TROPONIN T 2021-08-18 03:20:00 [facility] XR CHEST 1 VW PORTABLE 2021-08-18 03:14:19 [facility] HC COMPLETE BLD COUNT 2021-08-18 03:03:00 [facility] W/AUTO DIFF COMPREHENSIVE METABOLIC 2021-08-18 03:03:00 [facility] PANEL ESTIMATED GFR 2021-08-18 03:03:00 [facility] RESPIRATORY PATHOGEN PANEL 2021-08-18 03:03:00 [facility] WITH COVID-19 RT-PCR ECG ED PRELIMINARY 2021-08-18 02:54:33 [facility] INTERPRETATION COVID-19 QUALITATIVE 2021-08-11 05:31:00 [facility] RT-PCR [facility] COMPREHENSIVE METABOLIC 2021-08-11 05:30:00 [facility] PANEL [facility] HC COMPLETE BLD COUNT 2021-08-11 05:30:00 [facility] W/AUTO DIFF [facility] LACTIC ACID, I-STAT 2021-08-11 05:30:00 [facility] ESTIMATED GFR 2021-08-11 05:30:00 [facility] ECG 12-LEAD 2021-08-11 05:15:35 [facility] URINALYSIS 2021-08-11 05:00:00 [facility] XR CHEST 1 VW PORTABLE 2021-08-11 04:27:00 [facility] LACTIC ACID, I-STAT 2021-06-28 22:37:00 [facility] 2021-06-28 21:45:00 [facility] HC COMPLETE BLD COUNT 2021-06-28 20:01:[address] [facility] W/AUTO DIFF PROTHROMBIN TIME WITH INR, 2021-06-28 20:01:00 Romero Limon [facility] I-STAT COMPREHENSIVE METABOLIC 2021-06-28 20:01:00 Romero Limon [facility] PANEL LACTIC ACID, I-STAT 2021-06-28 20:01:00 [facility] SED[facility] RATE 2021-06-28 20:01:00 Romero Limon [facility] ESTIMATED GFR 2021-06-28 20:01:00 [facility] COVID-19 QUALITATIVE 2021-06-28 20:01:00 Romero Limon [facility] RT-PCR BLOOD CULTURE, AEROBIC & 2021-06-28 20:01:00 Romero Limon [facility] ANAEROBIC HC COMPLETE BLD COUNT 2021-06-21 11:20:00 Dinakar, [facility] W/AUTO DIFF Erika BASIC METABOLIC PANEL 2021-06-21 11:20:00 Dinakar, [facility] HEPATIC FUNCTION PANEL 2021-06-21 11:20:00 Dinakar, [facility] MAGNESIUM LEVEL 2021-06-21 11:20:00 Dinakar, [facility]OT[facility] TIME WITH INR 2021-06-21 11:20:00 Dinakar, [facility] PHOSPHORUS LEVEL 2021-06-21 11:20:00 Dinakar, [facility] Sabianist H ospital [facility] ESTIMATED GFR 2021-06-21 11:20:00 Dinakar, [facility] PHOSPHATIDYLETHANOL, BLOOD 2021-06-21 11:20:00 [facility] URINE DRUGS OF ABUSE 2021-06-21 10:11:00 [facility] SCREEN URINALYSIS SCREEN AND 2021-06-21 10:10:00 [facility] MICROSCOPY, WITH REFLEX TO CULTURE URINE CULTURE 2021-06-21 10:10:00 [facility] COVID-19 SEROLOGY PATIENT 2021-06-20 17:52:00 Dinakar, [facility] SURVEILLANCE [facility] COVID-19 ANTI-SPIKE IGG 2021-06-20 17:52:00 Dinakar, [facility] ANTIBODY TITER [facility] HC COMPLETE BLD COUNT 2021-06-20 11:03:00 Dinakar, [facility] W/AUTO DIFF [facility] BASIC METABOLIC PANEL 2021-06-20 11:03:00 Dinakar, [facility] HEPATIC FUNCTION PANEL 2021-06-20 11:03:00 Dinakar, [facility] MAGNESIUM LEVEL 2021-06-20 11:03:00 Dinakar, Pierce Duckworth spital [facility] PROTHROMBIN TIME WITH INR 2021-06-20 11:03:00 Dinakar, [facility] PHOSPHORUS LEVEL 2021-06-20 11:03:00 Dinakar, Pierce Arcos ospital [facility]rika ESTIMATED GFR 2021-06-20 11:03:00 Pierce Marshall Erika XR ABDOMEN 1 VW PORTABLE 2021-06-20 00:11:00 [facility] AMMONIA L[facility] 2021 11:27:00 Jennifer Ghosh HC COMPLETE BLD COUNT 2021 11:24:[address] [facility] W/AUTO DIFF PROTHROMBIN TIME WITH INR 2021 11:24:00 Jennifer Ghosh [facility] COMPREHENSIVE METABOLIC 2021 11:24:00 Jennifer Ghosh [facility] PANEL PHOSPHORUS LEVEL 2021 11:24:00 Jennifer Ghosh ospital MAGNESIUM LEVEL 2021 11:24:00 Jennifer Ghosh spital HEMOGLOBIN A1C 2021 11:24:00 Jennifer Ghosh spital THYROID STIMULATING 2021 11:24:00 Li, Jennifer [facility] HORMONE T4 2021 11:24:00 [facility] spital VITAMIN D 25 HYDROXY LEVEL 2021 11:24:00 [facility] ESTIMATED GFR 2021 11:24:00 [facility] spital LACTIC ACID, I-STAT 2021 01:31:00 [facility] COVID-19 QUALITATIVE 2021 01:21:00 Diana Bangura [facility] RT-PCR CLOSTRIDIUM DIFFICILE 2021 00:30:00 [facility] TOXIN ENTERIC BACTERIAL PANEL 2021 00:30:00 [facility] 2021 00:09:00 [facility] COMPREHENSIVE METABOLIC 2021-06-18 22:51:00 [facility] PANEL AMYLASE LEVEL 2021-06-18 22:51:00 [facility] ESTIMATED GFR 2021-06-18 22:51:00 [facility] HC COMPLETE BLD COUNT 2021-06-18 21:51:00 Diana Bangura [place] [facility] W/AUTO DIFF COMPREHENSIVE METABOLIC 2021-06-18 21:51:00 [facility] PANEL LACTIC ACID, I-STAT 2021-06-18 21:51:00 [facility] AMYLASE LEVEL 2021-06-18 21:51:00 [facility] ESTIMATED GFR 2021-06-18 21:51:00 [facility] AMMONIA LEVEL 2021-06-18 21:47:00 [facility] HC COMPLETE BLD COUNT 2021-06-02 09:45:00 [facility] W/AUTO DIFF PROTHROMBIN TIME WITH INR 2021-06-02 09:45:00 [facility] BASIC METABOLIC PANEL 2021-06-02 09:45:00 [facility] HEPATIC FUNCTION PANEL 2021-06-02 09:45:00 [facility] PHOSPHORUS LEVEL 2021-06-02 09:45:00 [facility] MAGNESIUM LEVEL 2021-06-02 09:45:00 [facility] ospital ESTIMATED GFR 2021-06-02 09:45:00 [facility] ospital US ABDOMINAL LIMITED 2021-06-01 21:06:20 Joana Ling [facility] VENIPUNC NEED PHYS 2021-06-01 14:32:45 Brian Linda [facility] SKILL,DX OR RX HC COMPLETE BLD COUNT 2021-06-01 10:30:00 [facility] W/AUTO DIFF PROTHROMBIN TIME WITH INR 2021-06-01 10:30:00 [facility] BASIC METABOLIC PANEL 2021-06-01 10:30:00 [facility] HEPATIC FUNCTION PANEL 2021-06-01 10:30:00 [facility] PHOSPHORUS LEVEL 2021-06-01 10:30:00 [facility] MAGNESIUM LEVEL 2021-06-01 10:30:00 [facility] ospital HEMOGLOBIN A1C 2021-06-01 10:30:00 [facility] ospital THYROID STIMULATING 2021-06-01 10:30:00 [facility] HORMONE T4 2021-06-01 10:30:00 [facility] ospital VITAMIN D 25 HYDROXY LEVEL 2021-06-01 10:30:00 [facility] ZINC LEVEL, SERUM 2021-06-01 10:30:00 [facility] ALPHA FETOPROTEIN 2021-06-01 10:30:00 [facility] AMMONIA LEVEL 2021-06-01 10:30:00 [facility] ospital ESTIMATED GFR 2021-06-01 10:30:00 [facility] ospital PHOSPHATIDYLETHANOL, BLOOD 2021-06-01 10:30:00 [facility] URINE CULTURE 2021-06-01 02:48:00 [facility] ospital BLOOD CULTURE, AEROBIC & 2021-06-01 02:43:00 [facility] ANAEROBIC BLOOD CULTURE, AEROBIC & 2021-06-01 02:42:00 [facility] ANAEROBIC URINALYSIS SCREEN AND 2021-06-01 02:40:00 [facility] MICROSCOPY, WITH REFLEX TO CULTURE URINE DRUGS OF ABUSE 2021-06-01 02:40:00 [facility] SCREEN URIC ACID LEVEL 2021-06-01 02:38:00 [facility] ospital PROTHROMBIN TIME WITH INR 2021-06-01 02:38:00 [facility] PHOSPHORUS LEVEL 2021-06-01 02:38:00 [facility] PARTIAL THROMBOPLASTIN 2021-06-01 02:38:00 [facility] TIME (PTT) MAGNESIUM LEVEL 2021-06-01 02:38:00 [facility] ospital HEPATIC FUNCTION PANEL 2021-06-01 02:38:00 [facility] LDH 2021-06-01 02:38:00 [facility] ospital LACTIC ACID LEVEL 2021-06-01 02:38:00 [facility] FIBRINOGEN 2021-06-01 02:38:00 [facility] ospital HC COMPLETE BLD COUNT 2021-06-01 02:38:00 [facility] W/AUTO DIFF BASIC METABOLIC PANEL 2021-06-01 02:38:00 [facility] AMMONIA LEVEL 2021-06-01 02:38:00 [facility] ospital ESTIMATED GFR 2021-06-01 02:38:00 Heriberto York ospital COVID-19 SEROLOGY PATIENT 2021-06-01 02:38:00 Heriberto York [facility] SURVEILLANCE COVID-19 ANTI-SPIKE IGG 2021-06-01 02:38:00 Heriberto York [facility] ANTIBODY TITER ECG 12-LEAD 2021-06-01 01:06:10 Heriberto York ospimateo XR ABDOMEN 1 VW PORTABLE 2021-06-01 01:06:00 Heriberto York [facility] XR CHEST 1 VW PORTABLE 2021-06-01 01:02:00 Heriberto York [facility] COVID-19 QUALITATIVE 2021-06-01 00:37:00 [facility] HC COMPLETE BLD COUNT 2021-05-27 10:09:00 [facility] W/AUTO DIFF [facility] BASIC METABOLIC PANEL 2021-05-27 10:09:00 [facility] HEPATIC FUNCTION PANEL 2021-05-27 10:09:00 [facility] MAGNESIUM LEVEL 2021-05-27 10:09:00 Alma Girard [facility] PHOSPHORUS LEVEL 2021-05-27 10:09:00 Alma Girard [facility] PROTHROMBIN TIME WITH INR 2021-05-27 10:09:00 [facility] 2021-05-27 10:09:00 Alma Girard VENOUS BLOOD GAS 2021-05-26 23:37:00 Lucia Faustin HC COMPLETE BLD COUNT 2021-05-26 09:02:00 [facility] W/AUTO DIFF [facility] PROTHROMBIN TIME WITH INR 2021-05-26 09:02:00 [facility] COVID-19 SEROLOGY PATIENT 2021-05-26 09:02:00 Jaquan, [facility] SURVEILLANCE Tom SMEAR REVIEW 2021-05-26 09:02:00 Alma Girard PHOSPHATIDYLETHANOL, BLOOD 2021-05-26 09:02:00 Palak Mayorga [facility] COVID-19 ANTI-SPIKE IGG 2021-05-26 09:02:00 Abe Partida [facility] ANTIBODY TITER Tom BASIC METABOLIC PANEL 2021-05-26 09:00:00 Ting R[facility]vis [facility] HEPATIC FUNCTION PANEL 2021-05-26 09:00:[address] [facility] MAGNESIUM LEVEL 2021-05-26 09:00:00 Alma Girard PHOSPHORUS LEVEL 2021-05-26 09:00:00 Alma Girard ospimateo Self ALPHA FETOPROTEIN 2021-05-26 09:00:00 [facility] ZINC LEVEL, SERUM 2021-05-26 09:00:00 [facility] ESTIMATED GFR 2021-05-26 09:00:00 Alma Girard URINALYSIS SCREEN AND 2021-05-25 23:41:00 [facility] MICROSCOPY, WITH REFLEX TO [facility] CULTURE URINE DRUGS OF ABUSE 2021-05-25 23:41:00 [facility] SCREEN [facility] URINE CULTURE 2021-05-25 23:41:00 Alma Girard US HEPATIC 2021-05-25 20:43:26 Alma Girard US ABDOMINAL DOPPLER 2021-05-25 20:40:00 [facility] HC COMPLETE BLD COUNT 2021-05-25 18:10:[address] [facility] W/AUTO DIFF [facility] SMEAR REVIEW 2021-05-25 18:10:00 Alma Girard VENIPUNC NEED PHYS 2021-05-25 15:59:39 Tristin Hunt [facility] SKILL,DX OR RX CBC WITH PLATELET AND 2021-05-25 13:57:[facility] DIFFERENTIAL [facility] COMPREHENSIVE METABOLIC 2021-05-25 13:57:00 [facility] PANEL [facility] ESTIMATED GFR 2021-05-25 13:57:00 Alma Girard LACTIC ACID, I-STAT 2021-05-25 00:58:[address] [facility] COVID-19 QUALITATIVE 2021-05-25 00:00:00 Romero Limon [facility] RT-PCR CT ABDOMEN PELVIS WO 2021-05-24 23:16:57 Romero Limon [facility] CONTRAST URINALYSIS 2021-05-24 22:19:00 Romero Limon HC COMPLETE BLD COUNT 2021-05-24 22:13:[address] [facility] W/AUTO DIFF COMPREHENSIVE METABOLIC 2021-05-24 22:13:00 Romero Limon [facility] PANEL AMYLASE LEVEL 2021-05-24 22:13:00 Romero Limon LACTIC ACID, I-STAT 2021-05-24 22:13:[address] [facility] [facility] ESTIMATED GFR 2021-05-24 22:13:00 Romero Limon BLOOD CULTURE, AEROBIC & 2021-05-24 22:00:00 Romero Limon [facility] ANAEROBIC CBC HEMOGRAM 2020-11-23 05:55:00 Alma Girard PROTHROMBIN TIME WITH INR 2020-11-23 05:55:00 [facility] METABOLIC 2020-11-23 05:55:00 [facility] PANEL Baylee ESTIMATED GFR 2020-11-23 05:55:00 Alma Girard COVID-19 QUALITATIVE 2020-11-23 01:57:[address] [facility] RT-PCR Tomiwa LACTIC ACID, I-STAT 2020-11-23 01:40:[address] [facility] CT HEAD WO CONTRAST 2020-11-22 23:20:[address] [facility] HC COMPLETE BLD COUNT 2020-11-22 22:53:00 Romero Limon [facility] W/AUTO DIFF COMPREHENSIVE METABOLIC 2020-11-22 22:53:00 Romero Limon [facility] PANEL LACTIC ACID, I-STAT 2020-11-22 22:53:[address] [facility] AMMONIA LEVEL 2020-11-22 22:53:00 [facility] VENOUS BLOOD GAS 2020-11-22 22:53:00 [facility] 2020-11-22 22:53:00 [facility] XR ABDOMEN ACUTE INC CHEST 2020-11-02 22:51:00 Cliff Levy [facility] 1V ESTIMATED GFR 2020-11-02 21:55:00 [facility] HC COMPLETE BLD COUNT 2020-11-02 21:55:00 [facility] W/AUTO DIFF COMPREHENSIVE METABOLIC 2020-11-02 21:55:00 [facility] PANEL PROTHROMBIN TIME WITH INR 2020-11-02 21:55:00 [facility] COVID-19 QUALITATIVE 2020-11-02 21:05:00 [facility] RT-PCR NM BRAIN SPECT W I 123 2020-10-26 19:02:00 Cliff Levy [facility] DATSCAN HC COMPLETE BLD COUNT 2020-10-24 10:15:00 [facility] W/AUTO DIFF BASIC METABOLIC PANEL 2020-10-24 10:15:00 [facility] HEPATIC FUNCTION PANEL 2020-10-24 10:15:00 [facility] MAGNESIUM LEVEL 2020-10-24 10:15:00 [facility] ospital PHOSPHORUS LEVEL 2020-10-24 10:15:00 [facility] PROTHROMBIN TIME WITH INR 2020-10-24 10:15:00 [facility] HEMOGLOBIN A1C 2020-10-24 10:15:00 [facility] ospital THYROID STIMULATING 2020-10-24 10:15:00 [facility] HORMONE T4 2020-10-24 10:15:00 [facility] ospital VITAMIN D 25 HYDROXY LEVEL 2020-10-24 10:15:00 [facility] ZINC LEVEL, SERUM 2020-10-24 10:15:00 [facility] ALPHA FETOPROTEIN 2020-10-24 10:15:00 [facility] ESTIMATED GFR 2020-10-24 10:15:00 [facility] ospital URINE DRUGS OF ABUSE 2020-10-24 10:00:00 [facility] SCREEN LACTIC ACID LEVEL, SEPSIS 2020-10-24 06:20:00 [facility] - NOW AND REPEAT 2X EVERY 3 HOURS LACTIC ACID LEVEL, SEPSIS 2020-10-24 02:25:00 [facility] - NOW AND REPEAT 2X EVERY 3 HOURS XR CHEST 1 VW PORTABLE 2020-10-24 00:08:00 [facility] BLOOD CULTURE, AEROBIC & 2020-10-23 23:31:00 Rehrer, [facility] ANAEROBIC RESPIRATORY PATHOGEN PANEL 2020-10-23 23:31:00 Rehrer, [facility] WITH COVID-19 RT-PCR COMPREHENSIVE METABOLIC 2020-10-23 23:31:00 Rehrer, [facility] PANEL PHOSPHORUS LEVEL 2020-10-23 23:31:00 Rehrer, [facility] MAGNESIUM LEVEL 2020-10-23 23:31:00 Rehrer, [facility] LACTIC ACID LEVEL, SEPSIS 2020-10-23 23:31:00 [facility] - NOW AND REPEAT 2X EVERY 3 HOURS LIPASE LEVEL 2020-10-23 23:31:00 Rehrer, [facility] ESTIMATED GFR 2020-10-23 23:31:00 Rehrer, [facility] HC COMPLETE BLD COUNT 2020-10-23 23:20:00 Rehrer, [facility] W/AUTO DIFF PROTHROMBIN TIME WITH INR 2020-10-23 23:20:00 Rehrer, [facility] PARTIAL THROMBOPLASTIN 2020-10-23 23:20:00 [facility] TIME (PTT) AMMONIA LEVEL 2020-10-23 23:20:00 Rehrer, [facility] HC COMPLETE BLD COUNT 2020-10-10 00:05:00 [facility] W/AUTO DIFF COMPREHENSIVE METABOLIC 2020-10-10 00:05:00 [facility] PANEL LACTIC ACID, I-STAT 2020-10-10 00:05:00 [facility] AMMONIA LEVEL 2020-10-10 00:05:00 [facility] ESTIMATED GFR 2020-10-10 00:05:00 [facility] URINALYSIS 2020-10-09 23:32:00 [facility] ECG 12-LEAD 2020-10-09 23:18:11 [facility] HC COMPLETE BLD COUNT 2020-09-21 10:28:00 [facility] W/AUTO DIFF BASIC METABOLIC PANEL 2020-09-21 10:28:00 [facility] HEPATIC FUNCTION PANEL 2020-09-21 10:28:00 [facility] MAGNESIUM LEVEL 2020-09-21 10:28:00 [facility] ospital PHOSPHORUS LEVEL 2020-09-21 10:28:00 [facility] PROTHROMBIN TIME WITH INR 2020-09-21 10:28:00 [facility] MISCELLANEOUS REFERRAL 2020-09-21 10:28:00 Annette Mayorga [facility] TEST VITAMIN B12 LEVEL 2020-09-21 10:28:00 [facility] FOLATE LEVEL 2020-09-21 10:28:00 [facility] ospital ESTIMATED GFR 2020-09-21 10:28:00 [facility]spital COVID-19 QUALITATIVE 2020-09-20 20:51:00 [facility] Robby [facility] RT-PCR [facility] COMPLETE BLD COUNT 2020-09-20 12:08:00 [facility] W/AUTO DIFF BASIC METABOLIC PANEL 2020-09-20 12:08:00 [facility] HEPATIC FUNCTION PANEL 2020-09-20 12:08:00 [facility] MAGNESIUM LEVEL 2020-09-20 12:08:00 [facility]ital PHOSPHORUS LEVEL 2020-09-20 12:08:00 [facility] PROTHROMBIN TIME WITH INR 2020-09-20 12:08:00 [facility] HEMOGLOBIN A1C 2020-09-20 12:08:00 [facility]ital THYROID STIMULATING 2020-09-20 12:08:00 [facility] HORMONE T4 2020-09-20 12:08:00 [facility]ital VITAMIN D 25 HYDROXY LEVEL 2020-09-20 12:08:00 [facility] ZINC LEVEL, SERUM 2020-09-20 12:08:00 [facility] ALPHA FETOPROTEIN 2020-09-20 12:08:00 [facility] ESTIMATED GFR 2020-09-20 12:08:00 [facility] CERVICAL SPINE WO 2020-09-20 06:50:26 [facility] CONTRAST [facility] CT PELVIS WO CONTRAST 2020-09-20 06:50:16 Marcel [facility] HEAD WO CONTRAST 2020-09-20 06:50:07 [facility] [place] [facility], E/M 2020-09-20 04:05:41 Marcel [facility] 30-74 MINUTES Renee URINE CULTURE 2020-09-20 04:00:00 Bonny Rod spital Renee URINALYSIS SCREEN AND 2020-09-20 04:00:00 Marcel [facility] MICROSCOPY, WITH REFLEX TO Renee CULTURE URINE DRUGS OF ABUSE 2020-09-20 04:00:00 Bonny Rod [facility] SCREEN Renee MAGNESIUM LEVEL 2020-09-20 04:00:00 Bonny Rod Ho spital [place]enee TROPONIN 2020-09-20 04:00:00 Bonny Rod spital [place]enee XR KNEE 3 VW LEFT 2020-09-20 02:06:[address] [facility] XR KNEE 3 VW RIGHT 2020-09-20 02:06:[address] [facility] XR SHOULDER 2+ VW RIGHT 2020-09-20 02:05:46 [facility] COMPLETE [facility] 2020-09-20 02:05:00 Marcel [facility] W/AUTO DIFF Renee PROTHROMBIN TIME WITH INR 2020-09-20 02:05:00 Bonny Rod [facility] PARTIAL THROMBOPLASTIN 2020-09-20 02:05:00 Bonny Rod [facility] TIME (PTT) Renee COMPREHENSIVE METABOLIC 2020-09-20 02:05:00 Marcel [facility] PANEL Renee TROPONIN 2020-09-20 02:05:00 [facility] Renee B NATRIURETIC PEPTIDE 2020-09-20 02:05:00 Bonny Rod [facility] Renee AMMONIA LEVEL 2020-09-20 02:05:00 Bonny Rod [facility] [place]e ALCOHOL LEVEL, BLOOD 2020-09-20 02:05:00 Bonny Rod [facility] Renee ESTIMATED GFR 2020-09-20 02:05:00 Bonny Rod [facility] [place] Plan of Care Planned Activity Planned Date Details Comments Source Future Scheduled 2021-09-12 COLONOSCOPY SCREENING [facility] Test 12:13:11 [code = COLONOSCOPY SCREENING] Future Scheduled 2021-09-12 SHINGLES VACCINES [facility] Test 12:13:11 (#1) [code = SHINGLES VACCINES (#1)] Future Scheduled 2021-09-12 BREAST CANCER [facility] Test 12:13:11 SCREENING [code = BREAST CANCER SCREENING] Future Scheduled 2021-09-12 COVID-19 VACCINE (2 - [facility] Test 12:13:11 Booster for Yanira series) [code = COVID-19 VACCINE (2 - Booster for Yanira series)] Future Scheduled 2021-09-12 INFLUENZA VACCINE [facility] Test 12:13:11 [code = INFLUENZA VACCINE] Future Scheduled 2021-09-12 Screening for [facility] Test 12:13:11 malignant neoplasm of cervix (procedure) [code = 773982153] Future Scheduled 2021-08-[address] [facility] Test 00:00:00 (procedure) [code = Medical Center 99226936] Future Scheduled [address] [facility] Test 00:00:00 malignant neoplasm of [facility] cervix (procedure) [code = 945250291] Future Scheduled 1980 DTAP/TDAP/TD VACCINES [facility] Test 00:00:00 (1 - Tdap) [code = Medical C enter DTAP/TDAP/TD VACCINES (1 - Tdap)] Future Scheduled 1973 COVID-19 VACCINE (1) [facility] Test 00:00:00 [code = COVID-[address] VACCINE (1)] Future Scheduled [address] [facility] Test 00[facility]00:00 malignant neoplasm of [facility] breast (procedure) [code = 502775791] Future Scheduled [address] [facility] Test 00:00:00 malignant neoplasm of [facility] colon (procedure) [code = 358178242] Encounters Start End Encounter Admission Attending Care Care Encounter Source Date/Time Date/Time Type Type Clinicians Facility Department ID 2021-09-06 Outpatient D[facility], [facility] Common 13:49:19 Fernando 23868 [facility] 2021-09-06 Outpatient D[facility]az, [facility] [id number] Common 13:45:16 Fernando 58480 [facility] 2021-09-06 Outpatient Díaz, [facility] [id number] Common 12:49:41 Fernando 38382 [facility] 2021-09-06 Outpatient D[facility]az, [facility] [id number] Common 12:05:14 Fernando 51012 [facility] 2021-09-06 Outpatient Díaz, [facility] [id number] Common 12:03:44 Fernando 94210 [facility] 2021-09-06 Outpatient Díaz, [facility] [id number] Common 11:42:32 [facility] [address]43 [facility] 2021-09-06 Outpatient Díaz, [facility] [id number] Common 11:33:04 [facility] [address]70 [facility] 2022-01-10 2022-01-10 Outpatient GALATI, [facility] [id number] Brandon 00:00:00 00:00:00 CALOS [address] 2022-01-10 2022-01-10 Outpatient GALATI, [facility] [id number] Brandon 00:00:00 00:00:00 CALOS [address] 2021-11-30 2021-11-30 ambulatory [facility]LMLC ST[facility] [id number] Common 00:00:00 00:00:00 [facility] 2021-11-16 2021-11-16 Office Jay [facility] [id number] [facility] 13:30:00 14:32:33 Visit Luisana PORRAS 350.1.13.10 i Irma 4.2.7.2.686 Kalyani SKINNER [phone] Pr dical NAL 134 [facility] 2021-10-27 2021-11-04 Inpatient [facility] [id number] Brandon 00:00:00 00:00:00 Ava PIERSON Method [facility] 2021-10-16 2021-10-16 ambulatory [facility]LMLC ST[facility] [id number] Common 00:00:00 00:00:00 [facility] 2021-10-13 2021-10-13 ambulatory [facility]LMLC ST[facility] [id number] Common 00:00:00 00:00:00 [facility] 2021-09-25 2021-09-25 ambulatory STLMLC STL[facility]C [id number] Common 00:00:00 00:00:00 [facility] 2021-09-01 2021-09-16 Inpatient ER RAFAEL, [facility] [id number] [facility] 22:15:00 12:13:00 KENDY 2021-09-04 2021-09-04 ambulatory [facility]LMLC STL[facility]C [id number] Common 00:00:00 00:00:00 Spirit - [facility] 2021-09-01 2021-09-01 Documentat Viviane [facility] [id number] LALITA 00:00:00 00:00:[address] [facility] 2021-09-01 2021-09-01 Telephone Cristofer, 1.2.840.1 [id number] Methodi 00:00:00 00:00:[address] [place] Matthew 3.430.2.7 Hospit a .3.721792 l .8 2021-08-30 2021-08-31 Emergency ADALI, [facility] [id number] Brandon 00:00:00 00:00:00 MOISES [address] 2021-08-30 2021-08-30 Travel 1.2.840.1 1.2.808.847 [id number] Methodi 00:00:00 00:00:[address] 3.430.2.7 0.2.7.3.698 Ho spita .3.564619 084.8 l .8 2021-08-29 2021-08-29 [facility] [id number] Brandon 00:00:00 00:00:00 CALOS [address] 2021-08-29 2021-08-29 Travel 1.2.840.1 1.2.854.415 3245 [id number] Methodi 00:00:00 00:00:[address] 3.430.2.7 0.2.7.3.698 Ho spita .3.783669 084.8 l .8 2021-08-17 2021-08-25 [facility] [place] Baldrerama 1.2.840.1 [id number] Methodi 19:50:00 18:28:00 Encounter Baylee Girard 70250.1.[address] Stanislaw Ghoshuang 3.430.2.7 Hos lis .3.480731 l .8 2021-08-25 2021-08-25 Travel 1.2.840.1 1.2.392.276 3564 [id number] Methodi 00:00:00 00:00:[address] 3.430.2.7 0.2.7.3.698 Ho spita .3.470345 084.8 l .8 2021-08-24 2021-08-24 Surgery [facility], 1.2.840.1 [id number] Methodi 09:00:00 10:25:[address] 3.430.2.7 Hospit a .3.282104 l .8 2021-08-24 2021-08-24 Documentat Delcano, 1.2.840.1 [id number] Methodi 00:00:00 00:00:[place] [address].1.[address] Matthew 3.430.2.7 Hospit a .3.135868 l .8 2021-08-23 2021-08-23 Documentat Delcano, 1.2.840.1 [id number] Methodi 00:00:00 00:00:[place] [address] Matthew 3.430.2.7 Hospit a .3.400117 l .8 2021-08-21 2021-08-21 Social Jaimes, 1.2.840.1 [id number] [id number] Methodi 12:37:39 13:37:39 Work Scott 09416.1.[address] 3.430.2.7 Hospit a .3.751987 l .8 2021-08-21 2021-08-21 [facility] 1.2.840.1 [id number] Methodi 00:00:00 00:00:00 lupillo [place] 34399.1.[address] Matthew 3.430.2.7 Hospit a .3.028625 l .8 2021-08-21 2021-08-21 Telephone Pops, 1.2.840.1 [id number] 2099 [id number] Methodi 00:00:00 00:00:[address] 3.430.2.7 Hospit a .3.337935 l .8 2021-08-18 2021-08-18 Travel 1.2.840.1 1.2.314.354 9746 [id number] Methodi 00:00:00 00:00:[address] 3.430.2.7 0.2.7.3.698 Ho spita .3.484270 084.8 l .8 2021-08-10 2021-08-11 Emergency Adali, 1.2.840.1 [id number] 2 [id number] Methodi 20:25:00 01:30:[address] Rylee 3.430.2.7 Ho spita .3.815687 l .8 2021-08-10 2021-08-10 Travel 1.2.840.1 1.2.849.055 1628 783486 Methodi 00:00:00 00:00:[address] 3.430.2.7 0.2.7.3.698 Ho spita .3.692661 084.8 l .8 2021-07-28 2021-07-28 ambulatory STLMLC STLMLC [id number] Common 00:00:00 00:00:00 [facility] 2021-07-25 2021-07-25 Telephone Stephanie, 1.2.840.1 [id number] Methodi 00:00:00 00:00:[address] 3.430.2.7 Hospit a .3.847362 l .8 2021-07-24 2021-07-24 Telephone Pops, 1.2.840.1 [id number] 2099 [id number] Methodi 00:00:00 00:00:[address] 3.430.2.7 Hospit a .3.742174 l .8 2021-07-12 2021-07-12 ambulatory STLMLC STLMLC [id number] Common 00:00:00 00:00:00 [facility] 2021-06-29 2021-06-29 Travel 1.2.840.1 1.2.465.699 1423 [id number] Methodi 00:00:00 00:00:[address] 3.430.2.7 0.2.7.3.698 Ho spita .3.066315 084.8 l .8 2021-06-28 2021-06-28 Emergency Nuszen, 1.2.840.1 [id number] 2100 [id number] Methodi 13:22:00 16:56:00 Romero Sheets [address]162.1.[address] 3.430.2.7 Hospit a .3.603883 l .8 2021-06-22 2021-06-22 Behavioral John, 1.2.840.1 [id number] Methodi 00:00:00 00:00:00 Health Kaleb 14160.1.[address] Johnny 3.430.2.7 Hospit a .3.340472 l .8 2021-06-18 2021-06-21 [facility] Diana Bangura 1.2.840.1 10 [id number] Methodi 15:30:00 14:22:00 Encounter Jennifer Ghosh 37698.1.[address] [facility] Erika 3.430.2.7 Hospita .3.473915 l .8 2021-06-18 2021-06-18 Travel 1.2.840.1 1.2.300.109 5667 [id number] Methodi 00:00:00 00:00:[address] 3.430.2.7 0.2.7.3.698 Ho spita .3.462351 084.8 l .8 2021-06-16 2021-06-16 Orders Teri, 1.2.840.1 [id number] Methodi 00:00:00 00:00:00 Only Eusebia Maya 85722.1.[address] 3.430.2.7 Hospit a .3.322731 l .8 2021-06-08 2021-06-08 Clinical 1.2.840.1 [id number] Methodi 12:04:06 13:04:[address] 3.430.2.7 Hospit a .3.556534 l .8 2021-06-05 2021-06-05 Telephone [facility], 1.2.840.1 [id number] 2100 [id number] Methodi 00:00:00 00:00:[address] Johnny 3.430.2.7 Hospit a .3.097280 l .8 2021-05-31 2021-06-02 [facility], 1.2.840.1 [id number] Brandon 00:00:00 00:00:00 Encounter HERIBERTO 74149.1.1 [address] .3.345032 .8 2021-05-31 2021-05-31 Travel 1.2.840.1 1.2.570.808 3729 [id number] Methodi 00:00:00 00:00:[address] 3.430.2.7 0.2.7.3.698 Ho spita .3.746414 084.8 l .8 2021-05-24 2021-05-27 [facility] BraxtonRomero 1.2.840.1 [id number] Methodi 16:35:00 16:49:00 Encounter Baylee Girard 55403.1.[address] GarcíaPierce wallace Erika 3.430.2.7 Hospita .3.336096 l .8 2021-05-24 2021-05-24 Travel 1.2.840.1 1.2.070.031 0332 [id number] Methodi 00:00:00 00:00:[address] 3.430.2.7 0.2.7.3.698 Ho spita .3.459163 084.8 l .8 2021-05-23 2021-05-23 Outpatient STLMLC ST[facility] [id number] Common 00:00:00 00:00:00 [facility] 2021-05-19 2021-05-19 Outpatient STLMLC STLMLC [id number] Common 00:00:00 00:00:00 [facility] 2021-05-01 2021-05-01 Outpatient STLMLC STLMLC [id number] Common 00:00:00 00:00:00 [facility] 2021-04-26 2021-04-26 Outpatient STLMLC STLMLC [id number] Common 00:00:00 00:00:00 [facility] 2021-04-26 2021-04-26 Outpatient STLMLC STLMLC [id number] Common 00:00:00 00:00:00 [facility] 2021-04-26 2021-04-26 Outpatient STLMLC STLMLC [id number] Common 00:00:00 00:00:00 [facility] 2021-01-13 2021-01-13 Outpatient STLMLC STLMLC [id number] Common 00:00:00 00:00:00 [facility] 2020-12-13 2020-12-13 Outpatient STLMLC STLMLC [id number] Common 00:00:00 00:00:00 [facility] 2020-11-28 2020-11-28 Patient [place], 1.2.840.1 [id number] Methodi 00:00:00 00:00:00 Outreach Bia 26710.1.[address] 3.430.2.7 Hospit a .3.614821 l .8 2020-11-25 2020-11-25 Patient [place], 1.2.840.1 [id number] Methodi 00:00:00 00:00:00 Outreach Bia 90678.1.[address] 3.430.2.7 Hospit a .3.690694 l .8 2020-11-24 2020-11-24 Patient Randal 1.2.840.1 [id number] 87716 Methodi 00:00:00 00:00:00 Outreach Bia 78709.1.[address] 3.430.2.7 Hospit a .3.601036 l .8 2020-11-22 2020-11-23 Emergency Wild Kovacs 1.2.840. 1 [id number] Methodi 17:29:00 16:26:00 Baylee Girard [address]209.1.[address] 3.430.2.7 Hospit a .3.401029 l .8 2020-11-22 2020-11-22 Travel 1.2.840.1 1.2.928.868 5989 [id number] Methodi 00:00:00 00:00:[address] 3.430.2.7 0.2.7.3.698 Ho spita .3.575052 084.8 l .8 2020-11-17 2020-11-17 Outpatient STLMLC STLMLC [id number] Common 00:00:00 00:00:00 [facility] 2020-11-02 2020-11-02 [facility] Mildred Cliff F. 1.2.840.1 [id number] Methodi 16:45:00 23:59:00 Encounter Calos Garcia 63415.1.[address] 3.430.2.7 Hospit a .3.234907 l .8 2020-11-02 2020-11-02 Lab Jose 1.2.840.1 [id number] Methodi 16:00:31 16:05:31 Calos Feng [address]1601.1.[address] 3.430.2.7 Hospit a .3.015018 l .8 2020-11-02 2020-11-02 Travel 1.2.840.1 1.2.838.941 3100 [id number] Methodi 00:00:00 00:00:[address] 3.430.2.7 0.2.7.3.698 Ho spita .3.953118 084.8 l .8 2020-10-26 2020-10-26 [facility], 1.2.840.1 [id number] Methodi 12:51:36 23:59:00 Encounter Cliff Marion 46945.1.[address] 3.430.2.7 Hospit a .3.777981 l .8 2020-10-26 2020-10-26 [facility], 1.2.840.1 [id number] [id number] Methodi 08:10:06 12:50:00 Encounter Cliff Marion 86524.1.[address] 3.430.2.7 Hospit a .3.849924 l .8 2020-10-26 2020-10-26 Travel 1.2.840.1 1.2.325.040 5917 [id number] Methodi 00:00:00 00:00:[address] 3.430.2.7 0.2.7.3.698 Ho spita .3.767943 084.8 l .8 2020-10-23 2020-10-24 [facility] 1.2.840.1 104 [id number] Methodi 17:57:00 14:46:00 Encounter Heriberto [place] 55828.1.[address] Ting Dangelo [facility] .[facility] l .8 2020-10-13 2020-10-13 Travel 1.2.840.1 1.2.149.711 0416 [id number] Methodi 00:00:00 00:00:[address] 3.430.2.7 0.2.7.3.698 Ho spita .3.929408 084.8 l .8 2020-10-12 2020-10-12 Transcribe Mildred, 1.2.840.1 [id number] Methodi 00:00:00 00:00:00 Orders Cliff Vlad[place]urel [address]13.1.[address] 3.430.2.7 Hospit a .3.238789 l .8 2020-10-11 2020-10-11 [facility] [id number] Common 00:00:00 00:00:00 [facility] 2020-10-09 2020-10-09 Emergency Azevedo, 1.2.840.1 [id number] Methodi 16:28:00 19:29:[address] Gus 3.430.2.7 Hospit a .3.204505 l .8 2020-10-03 2020-10-03 [facility] [id number] Common 00:00:00 00:00:00 [facility] 2020-09-19 2020-09-21 [facility] 1.2.840.1 [id number] Methodi 16:55:00 14:27:00 Encounter Heriberto York 57042.1.[address] Jennifer Ghosh 3.430.2.7 Hos lis .3.271342 l .8 2020-09-15 2020-09-15 Transcribe Jose 1.2.840.1 [id number] Methodi 00:00:00 00:00:00 Orders Calos Feng 66576.1.[address] 3.430.2.7 Hospit a .3.279129 l .8 2020-09-14 2020-09-14 [facility] [id number] Common 00:00:00 00:00:00 [facility] 2020-08-31 2020-09-02 Inpatient ROLANDO, [facility] [id number] [place] [address] 00:00:00 00:00:00 [facility] [address] 2020-08-10 2020-08-13 Inpatient YORK, [facility] [id number] Brandon 00:00:00 00:00:00 HERIBERTO 301 Method i 2020-08-09 2020-08-09 Emergency BRAXTON, [facility] 064 [id number] Brandon 00:00:00 00:00:00 ROMERO 618 [facility] i 2020-08-08 2020-08-08 Emergency ELLE, [facility] 064 [id number] Brandon 00:00:00 00:00:00 [place] [address] 2020-07-27 2020-07-27 Outpatient [facility] [id number] Common 00:00:00 00:00:00 [facility] 2020-07-18 2020-07-18 Outpatient [facility] [id number] Brandon 00:00:00 00:00:00 996 Method i 2020-07-04 2020-07-07 Inpatient JENNIFER GHOSH [facility]4 [id number] Brandon 00:00:00 00:00:00 529 [facility] i 2020-06-28 2020-06-28 Outpatient [facility] [id number] Common 00:00:00 00:00:00 [facility] 2020-06-20 2020-06-20 Outpatient [facility] [id number] Common 00:00:00 00:00:00 [facility] 2020-05-30 2020-06-03 Inpatient JENNIFER GHOSH [facility]4 [id number] Brandon 00:00:00 00:00:00 431 [facility] i 2020-05-27 2020-05-27 Outpatient YALAMANCHIL [facility] [id number] Brandon 00:00:00 00:00:00 I, YIFAN [address] 2020-05-20 2020-05-20 Outpatient STLMLC STLMLC [id number] Common 00:00:00 00:00:00 [facility] 2020-05-13 2020-05-17 Inpatient MCCARTAN, [facility] 064 [id number] [place] 00:00:00 00:00:00 MERCY 422 Method i 2020-04-13 2020-04-21 Inpatient YOJANA, [facility] 064 [id number] [place] 00:00:00 00:00:00 JUNO [address] 2020-04-13 2020-04-13 [facility] [id number] Common 16:02:00 16:02:[address] [facility] 2020-04-13 2020-04-13 [facility] [id number] Common 09:33:00 09:33:[address] [facility] 2020-04-05 2020-04-05 [facility] [id number] Common 09:10:00 09:10:[address] [facility] 2020-04-04 2020-04-04 [facility] [id number] Common 10:58:00 10:58:[address] [facility] 2020-04-04 2020-04-04 [facility] 32 [id number] Common 10:00:00 10:00:[address] [facility] 2020-03-17 2020-03-19 Inpatient TING [facility] 064 [id number] [place] 00:00:00 00:00:00 Ben PIERSON Method i [address] 2020-03-16 2020-03-16 [facility] 31 [id number] Common 11:12:00 11:12:[address] [facility] 2020-03-14 2020-03-14 Outpatient JACQUELIN, [facility] [id number] [place] 00:00:00 00:00:00 EBONY [address] 2020-03-10 2020-03-10 [facility] [id number] Common 13:18:00 13:18:[address] [facility] 2020-03-07 2020-03-07 [facility] 31 [id number] Common 16:07:00 16:07:[address] [facility] 2020-03-04 2020-03-04 [facility] 30 [id number] Common 11:00:00 11:00:[address] [facility] 2020-03-04 2020-03-04 [facility] 30 [id number] Common 11:00:00 11:00:[address] [facility] 2020-03-04 2020-03-04 Outpatient MEAGAN, [facility] [id number] [place] 00:00:00 00:00:00 JAYASIMHA 578 Meth erasto 2020-02-18 2020-02-21 Inpatient YORK, [facility] 064 [id number] [place] 00:00:00 00:00:00 HERIBERTO 304 Method i 2020-01-18 2020-01-20 Inpatient DINAKAR, [facility] 778 [id number] [place] 00:00:00 00:00:00 PIERCE 881 Method i 2020-01-07 2020-01-11 Inpatient YORK, [facility] 064 [id number] [place] 00:00:00 00:00:00 HERIBERTO 087 Method i 2019-12-29 2019-12-29 Out[facility] 30 [id number] Common 07:03:00 07:03:[address] [facility] 2019-12-23 2019-12-25 Inpatient TING [facility] 064 [id number] [place] 00:00:00 00:00:00 PIERSON, 540 Method i BAYLEE 2019-12-23 2019-12-23 Outpatient JACQUELIN, [facility] [id number] [place] 00:00:00 00:00:00 AHMED 960 Method i 2019-12-22 2019-12-22 Office [facility] [id number] 14:08:03 14:56:41 Visit [facility] [id number] Surgical [id number] Specialti [id number] es 198 [place] 2019-10-12 2019-10-15 Inpatient YORK, [facility] 012 [id number] [place] 00:00:00 00:00:00 HERIBERTO 906 Method i 2019-09-01 2019-09-03 Inpatient YORK, [facility] [id number] [place] 00:00:00 00:00:00 HERIBERTO [address] 2019-07-20 2019-07-20 [facility] [id number] Common 14:02:00 14:02:[address] [facility] 2019-07-16 2019-07-16 Out[facility] [id number] Common 13:15:00 13:15:[address] [facility] 2019-06-16 2019-06-18 Inpatient YORK, [facility] [id number] [place] 00:00:00 00:00:00 HERIBERTO 382 Method i 2019-05-07 2019-05-08 Outpatient DARCY, UMAR [facility] [id number] [place] 00:00:00 00:00:00 691 Method i 2019-04-23 2019-04-23 Outpatient GALATI, [facility] [id number] [place] 00:00:00 00:00:00 CALOS [address] 2019-04-23 2019-04-23 Outpatient JACQUELIN, [facility] [id number] [place] 00:00:00 00:00:00 AHMED [address] 2019-04-15 2019-04-15 [facility] [id number] Common 14:19:00 14:19:[address] [facility] 2019-04-09 2019-04-09 Out[facility] [id number] Common 14:00:00 14:00:[address] [facility] 2018-09-09 2018-09-09 Out[facility] [id number] Common 14:45:00 14:45:[address] [facility] 2018-04-15 2018-04-15 Out[facility] 15 [id number] Common 12:02:00 12:02:[address] [facility] 2018-02-19 2018-02-19 Out[facility] [id number] Common 15:08:00 15:08:00 t [employer] [employer] [facility] 2018-01-24 2018-01-24 [facility] 13 [id number] Common 11:15:00 11:15:[address] [facility] Results Test Description Test Time Test Comments Results Result Comments Source SARS-CoV-2 (COVID-19) RNA [Presence] in Respiratory sp ecimen by 2021-10-28 04:55:57 GUSTAVO with probe detection Test Item Value Reference Range Interpretation Comme nts SARS-CoV-2 (COVID-19) RNA [Presence] in Respiratory specimen by Not detected GUSTAVO with probe detection (test code = 23562-1) 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 (test code = Un known 83919-7) Whether the patient has symptoms related to condition of interest U nknown (test code = 77854-0) Whether the patient was hospitalized for condition of interest Unkn own (test code = 13800-3) Whether the patient was admitted to intensive care unit (ICU) for U nknown condition of interest (test code = 61496-9) Whether patient resides in a congregate care setting (test code = U nknon 64130-2) status (test code = 71353-5) Unknown Date and time of symptom onset (test code = 88951-3) Unknown SARS-CoV-2 (COVID-19) RNA [Presence] in Respiratory specimen by GUSTAVO with probe [id number] 01:48:29 Test Item Value Reference Range Interpretation Comments SARS-CoV-2 (COVID-19) RNA Not detected [Presence] in Respiratory specimen by GUSTAVO with probe detection (test code = 75125-9) 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 employed in a Unknown healthcare setting (test code = 42257-1) Whether the patient has symptoms Unknown related to condition of interest (test code = 24401-4) Whether the patient was Unknown hospitalized for condition of interest (test code = 76816-4) Whether the patient was admitted Unknown to intensive care unit (ICU) for condition of interest (test code = 93796-8) Whether patient resides in a Unknown congregate care setting (test code = 98528-5) status (test code = Unknown 34501-9) Date and time of symptom onset Unknown (test code = 85926-5) CT, [id number] 08:50:00Unlisted Reason for Exam - Click Yes and Enter Reason Below->YesUnlisted Reason for Exam->diarrhea. abdominal pain. C dif colitis.Is this for enterography?->NoWill this procedure require oral c ontrast?->NoLALITA [facility] : 1960 Sex: [...] MDReport Verified Date/Time: 09/15/2021 08:50:57 BASIC METABOLIC [id number] 07:34:36 Test Item Value Reference Range Interpretation [...] S NOT APPLICABLE FOR DIALYSIS PATIEN TS. Nursing Unit Manager ID - EOSpecimen moderately ictericHEPATIC FUNCTION [id number] 07:29:08 Test Item Value Reference Range Interpretation [...] Specimen slightly (test code = 347) hemolyzed Nursing Unit Manager ID - EOSpecimen moderately ictericPROTHROMBIN TIME/[id number] 06:46:58 Test Item Value Reference Range Interpretation Comments PROTIME (BEAKER) 22.1 seconds 11.9-14.2 H (test code = 759) INR (BEAKER) (test 1.96 See_Comment [Automat ed message] code = 370) The system Hyperpia generated this result transmitted ref erence range: [...] = 2801) CBC W/PLT COUNT & AUTO [id number] 10:18:58 Test Item Value Reference Range Interpretation [...] (BEAKER) (test code = 2801) BASIC METABOLIC [id number] 08:06:00 Test Item Value Reference Range Interpretation [...] S NOT APPLICABLE FOR DIALYSIS PATIEN TS. Nursing Unit Manager ID - MARLON Ferrera moderately ictericHEPATIC FUNCTION [id number] 08:06:00 Test Item Value Reference Range Interpretation [...] (test code = 19 U/L 6-55 347) Nursing Unit Manager ID Ajay Ferrera moderately ictericPROTHROMBIN TIME/[id number] 07:51:15 Test Item Value Reference Range Interpretation Comments PROTIME (BEAKER) 20.6 seconds 11.9-14.2 H (test code = 759) INR (BEAKER) (test 1.80 See_Comment [Automat ed message] code = 370) The system Hyperpia generated this result transmitted ref erence range: <=5.90. The reference range was not used to int erpret this result as normal/abnormal . RECOMMENDED COUMADIN/WARFARIN INR THERAPY RANGESSTANDARD DOSE: 2.0 - 3.0 Includes: PROPHYLAXIS forvenous thrombosis, systemic embolization; TREATMENT for venous thrombosis and/or pulmonary embolus.HIGH RISK: Target INR is 2.5-3.5 for patients with mechanical heart valves.HEPATIC FUNCTION [id number] 07:41:30 Test Item Value Reference Range Interpretation [...] (test code = 21 U/L 6-55 347) Nursing Unit Manager ID - PIAYA LSpecimen moderately ictericBASIC METABOLIC [id number] 07:41:29 Test Item Value Reference Range Interpretation [...] S NOT APPLICABLE FOR DIALYSIS PATIEN TS. Nursing Unit Manager ID - PIAYA LSpecimen moderately ictericPROTHROMBIN TIME/[id number] 07:34:58 Test Item Value Reference Range Interpretation Comments PROTIME (BEAKER) 19.3 seconds 11.9-14.2 H (test code = 759) INR (BEAKER) (test 1.66 See_Comment [Automat ed message] code = 370) The system Hyperpia generated this result transmitted ref erence range: [...] PERCENT (BEAKER) (test code = 2801) VITAMIN [id number] 07:00:04 Test Item Value Reference Range Interpretation Comments VITAMIN B12 (BEAKER) (test code = > pg/mL 213-816 H 774) Nursing Unit Manager ID - ZAC WBASIC METABOLIC [id number] 06:43:51 Test Item Value Reference Range Interpretation [...] S NOT APPLICABLE FOR DIALYSIS PATIEN TS. Nursing Unit Manager ID - ZAC WOperator ID - MARLON LSpecimen slightly ictericVITAMIN D, 68-[id number] 05:27:33 Test Item Value Reference Range Interpretation Comments VITAMIN D 25-OH (BEAKER) (test code 4.4 ng/mL 6.6-49.9 L = 2764) Effective 05/22/2017: Reference Range ChangeNew: 6.6-49.9 ng/mL Previous: 13.0-47.8 ng/mLRecommended Vitamin D Target Range: 30.0-40.0 ng/mLOperator ID - MARLON LC-REACTIVE [id number] 05:23:46 Test Item Value Reference Range Interpretation Comments C-REACTIVE PROTEIN (BEAKER) (test 1.00 mg/dL 0.00-0.50 H code = 676) Nursing Unit Manager ID - ZAC [id number] 05:23:45 Test Item Value Reference Range Interpretation Comments MAGNESIUM (BEAKER) (test code = 1.6 mg/dL 1.6-2.6 627) Nursing Unit Manager ID - ZAC WHEPATIC FUNCTION [id number] 05:23:45 Test Item Value Reference Range Interpretation [...] (test code = 17 U/L 6-55 347) Nursing Unit Manager ID - ZAC WSpecimen slightly ictericPROTHROMBIN TIME/[id number] 04:53:27 Test Item Value Reference Range Interpretation Comments PROTIME (BEAKER) 22.4 seconds 11.9-14.2 H (test code = 759) INR (BEAKER) (test 2.00 See_Comment [Automat ed message] code = 370) The system Hyperpia generated this result transmitted ref erence range: [...] (BEAKER) (test code = 2801) Basic Metabolic [id number] 08:26:03 Test Item Value Reference Range Interpretation Comments Sodium (test code = 137 meq/L 591-923 8460-2) Potassium (test code 3.5 meq/L 3.5-5.1 = 2823-3) Chloride (test code = 109 meq/L 98-107 H 2075-0) CO2 (test code = 24 meq/L -29 2028-9) BUN (test code = 13 mg/dL 7-21 3094-0) Creatinine (test code 0.73 mg/dL 0.57-1.25 = 2160-0) Glucose (test code = 85 mg/dL 70-105 2345-7) Calcium (test code = 7.7 mg/dL 8.4-10.2 L 04149-0) EGFR (test code = 81 mL/min/1.73 [place] [address]-6) NOT ACCURATE CREATININE CLEARANCE IN PREDICTING GLOMERULAR FILTRATION RATE . ESTIMATED GFR I S NOT APPLICABLE FOR DIALYSIS PATIENTS. REJI (test code = REJI) Nursing Unit Manager ID - ELODIARADHA Nadya ID - DBSpecimen slightly icteric Lab Interpretation Abnormal (test code = 24323-7) [facility] METABOLIC [id number] 08:26:03 Test Item Value Reference Range Interpretation [...] S NOT APPLICABLE FOR DIALYSIS PATIEN TS. Nursing Unit Manager ID - MARLON [place] ID - DBSpecimen slightly ictericHepatic function [id number] 07:24:45 Test Item Value Reference Range Interpretation Comments Protein, Total (test 4.9 See_Comment L [Autom ated code = 2885-2) message] The system which generated this result transmitted reference range : 6.0 - 8.3 gm/dL . The reference range was not used to interpr et this result as normal/abnormal . Albumin (test code = 2.2 g/dL 3.5-5.0 L 01504-6) Total Bilirubin (test 4.0 mg/dL 0.2-1.2 H code = 1974-2) Bilirubin, Direct 1.5 mg/dL 0.1-0.5 H (test code = 1967-7) Alkaline Phosphatase 111 U/L 40-150 (test code = 6768-6) AST (test code = 53 U/L 5-34 H 1920-8) ALT (test code = 17 U/L 6-55 1742-6) REJI (test code = REJI) Nursing Unit Manager ID - MARLON LSpecimekorin slightly icteric Lab Interpretation Abnormal (test code = 56601-5) [facility]2022-01-31 07:24:45 Test Item Value Reference Range Interpretation Comments Magnesium (test code = 1.7 mg/dL 1.6-2.6 35728-8) REJI (test code = REJI) Nursing Unit Manager ID Ajay MASON L Lab Interpretation (test Normal code = 15140-1) [facility]2022-01-31 07:24:45 Test Item Value Reference Range Interpretation Comments MAGNESIUM (BEAKER) (test code = 1.7 mg/dL 1.6-2.6 627) Nursing Unit Manager ID Ajay MASON LHEPATIC FUNCTION [id number] 07:24:45 Test Item Value Reference Range Interpretation [...] (test code = 17 U/L 6-55 347) Nursing Unit Manager ID - MARLON LSpecimen slightly ictericProthrombin time/[id number] 06:40:57 Test Item Value Reference Interpretation Comments Range Protime (test code = 22.5 See_Comment H [Autom ated 5132-2) message] The system which generated this result transmitted reference range : 11.9 - 14.2 seconds. The reference range was not used to interpret this result as normal/abnormal . INR (test code = 2.01 See_Comment [Automated 2241-6) message] The system which generated this result [...] valves. Lab Interpretation Abnormal (test code = 68868-3) [facility][id number] 06:40:57 Test Item Value Reference Range Interpretation Comments PROTIME (BEAKER) 22.5 seconds 11.9-14.2 H (test code = 759) INR (BEAKER) (test 2.01 See_Comment [Automat ed message] code = 370) The system Hyperpia generated this result transmitted ref erence range: [...] See_Comment H [A utomated message] The system Hyperpia generated this result transmitted ref erence range: 3.5 - 10 .5 K/L. The refe rence range was not u sed to interpret this result as normal/abnor mal. RBC (test code = 789-8) 2.76 See_Comment L [Au tomated message] The system Hyperpia generated this result transmitted ref erence range: 3.93 - 5 .22 M/L. The refe rence range was not u sed to interpret this result as normal/abnor mal. MCHC (test code = 786-4) 31.5 See_Comment L [A utomated message] The system Hyperpia generated this result transmitted ref erence range: [...] L [Aut omated message] 777-3) The system Hyperpia generated this result transmitted ref erence range: 150 - 45 0 K/CU MM. The referen ce range was not u sed to interpret this result as normal/abnor mal. MPV (test code = 9.6 fL 9.4-12.3 23061-3) nRBC (test code = 413) 0 See_Comment [Aut omated message] The system Hyperpia generated this result transmitted ref erence range: [...] H [Aut omated message] 670) The system Hyperpia generated this result transmitted ref erence range: 1.56 - 6 .13 K/L. The refe rence range was not u sed to interpret this result as normal/abnor mal. # Lymphs (test code = 1.18 See_Comment [Auto mated message] 414) The system Hyperpia generated this result transmitted ref erence range: 1.18 - 3 .74 K/L. The refe rence range was not u sed to interpret this result as normal/abnor mal. # Monos (test code = 0.64 See_Comment H [Autom ated message] 415) The system Hyperpia generated this result transmitted ref erence range: 0.24 - 0 .36 K/L. The refe rence range was not u sed to interpret this result as normal/abnor mal. # Eos (test code = 416) 0.31 See_Comment [Au tomated message] The system Hyperpia generated this result transmitted ref erence range: 0.04 - 0 .36 K/L. The refe rence range was not u sed to interpret this result as normal/abnor mal. # Baso (test code = 417) 0.02 See_Comment [A utomated message] The system Hyperpia generated this result transmitted ref erence range: 0.01 - 0 .08 K/L. The refe rence range was not u sed to interpret this result as normal/abnor mal. Immature 1 % 0-1 Granulocytes-Relative (test code = 2801) Lab Interpretation (test Abnormal code = 71592-6) [facility] W/PLT COUNT & AUTO [id number] 06:36:06 Test Item Value Reference Range Interpretation [...] (BEAKER) (test code = 2801) BASIC METABOLIC [id number] 09:04:28 Test Item Value Reference Range Interpretation [...] S NOT APPLICABLE FOR DIALYSIS PATIEN TS. Nursing Unit Manager ID - DBSpecimen moderately kkgeyekLVZXCEGLQ9172-19-58 08:26:10 Test Item Value Reference Range Interpretation Comments MAGNESIUM (BEAKER) (test code = 1.8 mg/dL 1.6-2.6 627) Nursing Unit Manager ID - DBHEPATIC FUNCTION [id number] 08:26:10 Test Item Value Reference Range Interpretation [...] (test code = 17 U/L 6-55 347) Nursing Unit Manager ID - DBSalli moderately ictericPROTHROMBIN TIME/[id number] 07:14:13 Test Item Value Reference Range Interpretation Comments PROTIME (BEAKER) 23.1 seconds 11.9-14.2 H (test code = 759) INR (BEAKER) (test 2.08 See_Comment [Automat ed message] code = 370) The system Hyperpia generated this result transmitted ref erence range: [...] (BEAKER) (test code = 2801) BASIC METABOLIC [id number] 09:04:18 Test Item Value Reference Range Interpretation [...] S NOT APPLICABLE FOR DIALYSIS PATIEN TS. Nursing Unit Manager ID - DBOperator ID - DBSpecimen moderately ictericHEPATIC FUNCTION [id number] 07:53:06 Test Item Value Reference Range Interpretation [...] (test code = 16 U/L 6-55 347) Nursing Unit Manager ID - DBSpecimen moderately ictericManual Seozlkpfntpm9292-49-49 07:50:25 Test Item Value Reference Range Interpretation [...] Platelet Conc (test code Decreased = 3438) ERJI (test code = REJI) Nursing Unit Manager ID - michaela Cutler comments: Slide comments: Lab Interpretation (test Abnormal code = 04452-0) [facility](CELLAVISION MANUAL DIFF)2021-09-09 07:50:25 Test Item Value Reference [...] CONCENTRATION Decreased (CELLAVISION)(BEAKER) (test code = 3438) Nursing Unit Manager ID - michaela herndonUser comments: Slide comments:CBC W/PLT COUNT & AUTO [id number] 07:50:24 Test Item Value Reference Range Interpretation [...] WBC 0-0 (test code = 413) PROTHROMBIN TIME/[id number] 06:28:05 Test Item Value Reference Range Interpretation Comments PROTIME (BEAKER) 24.0 seconds 11.9-14.2 H (test code = 759) INR (BEAKER) (test 2.18 See_Comment [Automat ed message] code = 370) The system Hyperpia generated this result transmitted ref erence range: [...] = No growth in 5 days 6463-4) [facility] [id number] 14:01:01 Test Item Value Reference Range Interpretation Comments CULTURE (BEAKER) (test No growth in 5 days code = 1095) [id number] 11:09:32 Test Item Value Reference Range Interpretation Comments Ammonia (test code = 35 See_Comment [Autom ated 04149-4) message] The system which generated this result transmit barron reference range : 18 - 72 mol/L . The reference range was not u sed to interpret th is result as normal/abnormal . REJI (test code = REJI) Nursing Unit Manager ID - ELODIAAYA L Lab Interpretation Normal (test code = 86260-0) [facility] 11:09:32 Test Item Value Reference Range Interpretation Comments AMMONIA (BEAKER) (test code = 348) 35 mol/L 18-72 Nursing Unit Manager ID - MARLON LCBC W/PLT COUNT & AUTO [id number] 07:57:44 Test Item Value Reference Range Interpretation [...] CONCENTRATION Decreased (CELLAVISION)(BEAKER) (test code = 3438) Nursing Unit Manager ID Ajay Ferguson comments: Slide comments:BASIC METABOLIC [id number] 06:46:23 Test Item Value Reference Range Interpretation [...] S NOT APPLICABLE FOR DIALYSIS PATIEN TS. Nursing Unit Manager ID - ZAC WSpecimen slightly kgsqnpfOhkrbhgfmh1861-69-89 06:42:47 Test Item Value Reference Range Interpretation Comments Phosphorus (test code = 2.4 mg/dL 2.3-4.7 2777-1) REJI (test code = REJI) Nursing Unit Manager ID - ZAC W Lab Interpretation (test Normal code = 95911-0) [facility] 06:42:47 Test Item Value Reference Range Interpretation Comments PHOSPHORUS (BEAKER) (test code = 2.4 mg/dL 2.3-4.7 604) Nursing Unit Manager ID Ajay FRANK WHEPATIC FUNCTION [id number] 06:42:47 Test Item Value Reference Range Interpretation [...] (test code = 15 U/L 6-55 347) Nursing Unit Manager ID - ZAC Rosales slightly ictericPROTHROMBIN TIME/[id number] 05:37:24 Test Item Value Reference Range Interpretation Comments PROTIME (BEAKER) 26.6 seconds 11.9-14.2 H (test code = 759) INR (BEAKER) (test 2.48 See_Comment [Automat ed message] code = 370) The system Hyperpia generated this result transmitted ref erence range: [...] CONCENTRATION Decreased (CELLAVISION)(BEAKER) (test code = 3438) Nursing Unit Manager ID - Cindy BurkhalterUser comments: Slide comments:CBC W/PLT COUNT & AUTO [id number] 09:40:43 Test Item Value Reference Range Interpretation [...] 0-0 (test code = 413) BASIC METABOLIC [id number] 07:22:45 Test Item Value Reference Range Interpretation [...] S NOT APPLICABLE FOR DIALYSIS PATIEN TS. Nursing Unit Manager ID - MARLON KENTpecimen slightly [id number] 07:16:27 Test Item Value Reference Range Interpretation Comments PHOSPHORUS (BEAKER) (test code = 2.2 mg/dL 2.3-4.7 L 604) Nursing Unit Manager ID Ajay MASON LHEPATIC FUNCTION [id number] 07:16:27 Test Item Value Reference Range Interpretation [...] (test code = 17 U/L 6-55 347) Nursing Unit Manager ID Ajay KENTpecimen slightly ictericBLOOD [id number] 07:00:33 Test Item Value Reference Range Interpretation Comments CULTURE (BEAKER) (test No growth in 5 days code = 1095) PROTHROMBIN TIME/[id number] 06:15:38 Test Item Value Reference Range Interpretation Comments PROTIME (BEAKER) 25.1 seconds 11.9-14.2 H (test code = 759) INR (BEAKER) (test 2.31 See_Comment [Automat ed message] code = 370) The system Hyperpia generated this result transmitted ref erence range: <=5.90. The reference range was not used to int erpret this result as normal/abnormal . RECOMMENDED COUMADIN/WARFARIN INR THERAPY RANGESSTANDARD DOSE: 2.0 - 3.0 Includes: PROPHYLAXIS forvenous thrombosis, systemic embolization; TREATMENT for venous thrombosis and/or pulmonary embolus.HIGH RISK: Target INR is 2.5-3.5 for patients with mechanical heart valves.Ova and Parasite [id number] 08:26:13 Test Item Value Reference Range Interpretation Comments O&P Direct Smear (test No ova or parasites No ova or code = 93826-4) seen parasites seen REJI (test code = REJI) See scanned report Lab Interpretation (test Normal code = 48145-5) [facility] 07:29:32 Test Item Value Reference Range Interpretation Comments PHOSPHORUS (BEAKER) (test code = 1.5 mg/dL 2.3-4.7 LL 604) Nursing Unit Manager ID Ajay FRANK WBASIC METABOLIC [id number] 07:09:27 Test Item Value Reference Range Interpretation [...] S NOT APPLICABLE FOR DIALYSIS PATIEN TS. Nursing Unit Manager ID - ZAC WSpecimen slightly ictericPROTHROMBIN TIME/[id number] 06:57:19 Test Item Value Reference Range Interpretation Comments PROTIME (BEAKER) 23.2 seconds 11.9-14.2 H (test code = 759) INR (BEAKER) (test 2.09 See_Comment [Automat ed message] code = 370) The system Hyperpia generated this result transmitted ref erence range: [...] CONCENTRATION Decreased (CELLAVISION)(BEAKER) (test code = 3438) Nursing Unit Manager ID - nabil Julian comments: Slide comments:XIHDRRVUCP6308-40-55 15:08:54 Test Item Value Reference Range Interpretation Comments PHOSPHORUS (BEAKER) (test code = 1.2 mg/dL 2.3-4.7 LL 604) Nursing Unit Manager ID - BSBASIC METABOLIC AFDKT5395-02-54 15:04:30 Test Item Value Reference Range Interpretation [...] S NOT APPLICABLE FOR DIALYSIS PATIEN TS. Nursing Unit Manager ID - BSSpecimen slightly ictericHEPATIC FUNCTION [id number] 15:02:35 Test Item Value Reference Range Interpretation [...] (test code = 17 U/L 6-55 347) Nursing Unit Manager ID - BSSpecimen slightly ictericPROTHROMBIN TIME/[id number] 14:50:10 Test Item Value Reference Range Interpretation Comments PROTIME (BEAKER) 24.9 seconds 11.9-14.2 H (test code = 759) INR (BEAKER) (test 2.28 See_Comment [Automat ed message] code = 370) The system Hyperpia generated this result transmitted ref erence range: [...] (test code = 413) Clostridium difficile GDH [id number] 21:23:26 Test Item Value Reference Range Interpretation Comments C. Difficle Toxin Positive Negative A (test code = 6696078861) C. Difficile GDH Positive Negative A Confirms Antigen (test code = Clostri dium [id number]) difficile-assoc ia barron infection.First line therapy - [...] of kit performance was done by the [facility] Microbiology Lab prior to clinical use. Lab Interpretation Abnormal (test code = 02459-9) [facility]. DIFFICILE GDH [id number] 21:23:26 Test Item Value Reference Range Interpretation Comments CDT TOXIN (test code Positive Negative A = [id number]) CDT GDH ANTIGEN Positive Negative A Confirms Maria Esther stridium (test code = difficile-assoc iated 2503032695) infection.First line therapy - oral Vancomycin. Co [...] of kit performance was done by the [facility] Microbiology Lab prior to clinical use.CT, CHEST, WITH [id number] 10:14:00Unlisted Reason for Exam - Click Yes and Enter Reason Below->No [facility] 1960 Sex: [...] this for enterography?->YesWill this procedure require oral contrast?->[facility] : 1960 Sex: [...] CONCENTRATION Decreased (CELLAVISION)(BEAKER) (test code = 3438) Nursing Unit Manager ID - michaela Cutler comments: Slide comments:CBC W/PLT COUNT & AUTO [id number] 07:25:32 Test Item Value Reference Range Interpretation [...] /100 WBC 0-0 (test code = 413) [id number] 06:26:19 Test Item Value Reference Range Interpretation Comments PHOSPHORUS (BEAKER) (test code = 1.5 mg/dL 2.3-4.7 LL 604) Nursing Unit Manager ID Ajay FRANK WComprehensive metabolic cybwt4029-09-84 06:18:30 Test Item Value Reference Range Interpretation Comments Protein, Total (test 4.7 See_Comment L [Autom ated code = 2885-2) message] The system which generated this result transmitted reference range : 6.0 - 8.3 gm/dL . The reference range was not used to interpr et this result as normal/abnormal . Albumin (test code = 2.7 g/dL 3.5-5.0 L 30176-2) Alkaline Phosphatase 85 U/L 40-150 (test code [...] (test code = 7.3 mg/dL 8.4-10.2 L 66549-6) AST (test code = 28 U/L 5-34 1920-8) ALT (test code = 14 U/L 6-55 1742-6) EGFR (test code = 53 mL/min/1.73 [place] [address]-8) NOT ACCURATE CREATININE CLEARANCE IN PREDICTING GLOMERULAR FILTRATION RATE . ESTIMATED GFR I S NOT APPLICABLE FOR DIALYSIS PATIENTS. REJI (test code = REJI) Nursing Unit Manager ID Ajay FRANK WSpecimen slightly icteric Lab Interpretation Abnormal (test code = 30791-9) [facility] [id number] 06:18:30 Test Item Value Reference Range Interpretation [...] S NOT APPLICABLE FOR DIALYSIS PATIEN TS. Nursing Unit Manager ID - ZAC WSpecimen slightly xqfztpuTMRVERERL8258-24-82 06:13:05 Test Item Value Reference Range Interpretation Comments MAGNESIUM (BEAKER) (test code = 2.3 mg/dL 1.6-2.6 627) Nursing Unit Manager ID - ZAC W(CELLAVISION MANUAL DIFF)2021-09-03 14:33:56 [...] CONCENTRATION Decreased (CELLAVISION)(BEAKER) (test code = 3438) Nursing Unit Manager ID - Claudine Rios comments: Slide comments:CBC W/PLT COUNT & AUTO [id number] 14:33:55 Test Item Value Reference Range Interpretation [...] (test code = 413) Hepatitis B surface xfwsxgnz4159-00-52 13:30:11 Test Item Value Reference Range Interpretation Comments Hep B S Ab (test code <8.0 See_Comment [Auto mated = 47308-9) message] The system which generated this result transmit barron reference range : <8.0 mIU/mL. e reference range was not used to interpret this result as normal/abnormal . REJI (test code = REJI) Nursing Unit Manager ID - MARLON Zapien Lab Interpretation Normal (test code = 90103-0) [facility] SURFACE [id number] 13:30:11 Test Item Value Reference Range Interpretation Comments HEPATITIS B SURFACE ANTIBODY < mIU/mL <8.0 (BEAKER) (test code = 647) Nursing Unit Manager GINA ARREOLAepatitis A antibody, [id number] 13:23:53 Test Item Value Reference Range Interpretation Comments Hep A IgG (test code = Nonreactive Nonreactive 81620-8) REJI (test code = REJI) Nursing Unit Manager ID - MARLON L Lab Interpretation (test Normal code = 63811-2) [facility] A ANTIBODY, [id number] 13:23:53 Test Item Value Reference Range Interpretation Comments HEPATITIS A IGG ANTIBODY (BEAKER) Nonreactive Nonreactive (test code = 2797) Nursing Unit Manager ID Ajay ARREOLAepatitis B core antibody, vdzge5978-80-79 13:23:52 Test Item Value Reference Range Interpretation Comments Hep B Core Total Ab Nonreactive Nonreactive (test code = 62478-7) REJI (test code = REJI) Nursing Unit Manager ID - MARLON L Lab Interpretation (test Normal code = 98512-8) [facility] C cssbhzfl8629-85-55 13:23:52 Test Item Value Reference Range Interpretation Comments Hepatitis C Ab (test Nonreactive Nonreactive code = 78453-5) REJI (test code = REJI) Nursing Unit Manager ID - MARLON Zapien Lab Interpretation (test Normal code = 59965-8) [facility] C URMWRAEB0780-12-62 13:23:52 Test Item Value Reference Range Interpretation Comments HEPATITIS C ANTIBODY (BEAKER) Nonreactive Nonreactive (test code = 367) Nursing Unit Manager ID Ajay MASON LHEPATITIS B CORE ANTIBODY, [id number] 13:23:52 Test Item Value Reference Range Interpretation Comments HEPATITIS B CORE TOTAL ANTIBODY Nonreactive Nonreactive (BEAKER) (test code = 497) Nursing Unit Manager ID - MARLON LHepatitis B surface hqxgdis5596-93-97 13:23:51 Test Item Value Reference Range Interpretation Comments HBsAg Screen (test code Nonreactive Nonreactive = 5195-3) REJI (test code = REJI) Specimen is considered negative for HBsAg. Lab Interpretation (test Normal code = 86544-1) [facility] B SURFACE [id number] 13:23:51 Test Item Value Reference Range Interpretation [...] S NOT APPLICABLE FOR DIALYSIS PATIEN TS. Nursing Unit Manager ID - MARLON LSpecimen slightly ufqeapzKMQMXHUKN5417-85-06 12:58:51 Test Item Value Reference Range Interpretation Comments MAGNESIUM (BEAKER) (test code = 2.1 mg/dL 1.6-2.6 627) Nursing Unit Manager ID - MARLON RDLIJDZISIZ8978-73-56 12:58:51 Test Item Value Reference Range Interpretation Comments PHOSPHORUS (BEAKER) (test code = 2.3 mg/dL 2.3-4.7 604) Nursing Unit Manager ID - MARLON LPROTHROMBIN TIME/[id number] 12:56:09 Test Item Value Reference Range Interpretation Comments PROTIME (BEAKER) 23.4 seconds 11.9-14.2 H (test code = 759) INR (BEAKER) (test 2.10 See_Comment [Automat ed message] code = 370) The system Hyperpia generated this result transmitted ref erence range: <=5.90. The reference range was not used to int erpret this result as normal/abnormal . RECOMMENDED COUMADIN/WARFARIN INR THERAPY RANGESSTANDARD DOSE: 2.0 - 3.0 Includes: PROPHYLAXIS forvenous thrombosis, systemic embolization; TREATMENT for venous thrombosis and/or pulmonary embolus.HIGH RISK: Target INR is 2.5-3.5 for patients with mechanical heart valves.Urine aglixfh2105-52-76 12:15:06 Test Item Value Reference Range Interpretation Comments Result (test code = 6463-4) No growth [facility] -ID Hvmq0990-80-00 12:43:22 Test Item Value Reference Range Interpretation Comments CAMPYLOBACTER (PCR) Not detected Not detected (test code = 81502-2) PLESIOMONAS SHIGELLOIDES Not detected Not detected (PCR) (test code = 17009-8) SALMONELLA (PCR) (test Not detected Not detected code = 38043-9) YERSINIA ENTEROCOLITICA Not detected Not detected (PCR) (test code = 54771-3) VIBRIO CHOLERAE (PCR) Not detected Not detected (test code = 32043-4) ENTEROAGGREGATIVE E. Not detected Not detected COLI (EAEC) BY PCR (test code = 20077-2) ENTEROPATHOGENIC E. COLI Not detected Not detected (EPEC) BY PCR (test code = 77993-6) ENTEROTOXIGENIC E. COLI Not detected Not detected (ETEC) LT/ST BY PCR (test code = 36726-1) SHIGA-LIKE Not detected Not detected TOXIN-PRODUCING E. COLI (STEC) STX1/STX2 (test code = 95570-1) E. COLI O157 (PCR) (test code = 71274-0) SHIGELLA/ENTEROINVASIVE Not detected Not detected E. COLI (EIEC) BY PCR (test code = 17276-0) CRYPTOSPORIDIUM (PCR) Not detected Not detected (test code = 18793-7) CYCLOSPORA CAYETANENSIS Not detected Not detected (PCR) (test code = 88106-8) ENTAMOEBA HISTOLYTICA Not detected Not detected (PCR) (test code = 46929-2) GIARDIA LAMBLIA (PCR) Not detected Not detected (test code = 80589-6) ADENOVIRUS F 40/41 (PCR) Not detected Not detected (test code = 61413-2) ASTROVIRUS (PCR) (test Not detected Not detected code = 61615-2) NOROVIRUS GI/GII (PCR) Not detected Not detected (test code = 49133-5) ROTAVIRUS A (PCR) (test Not detected Not detected code = 32797-0) SAPOVIRUS (I, II, IV, V) Not detected Not detected BY PCR (test code = 76236-8) VIBRIO Not detected Not detected (PARAHAEMOLYTICUS, VULNIFICUS) (test code = 22177-0) REJI (test code = REJI) Other viruses, parasites and bacteria not targeted by this PCR panel cannot be excluded; therefore clinical correlation and follow up of serology, culture results, and other molecular studies is required. The results are not intended to be used as the sole means for clinical diagnosis or patient management decisions. This sample was tested at the [facility] Molecular Diagnostics Laboratory using the Emergent OneArray Gastrointestinal Panel. It is FDA cleared and has been verified and approved by the [facility] Molecular Diagnostics Laboratory for clinical use. This laboratory is CLIA-certified and [employer] (CAP)-accredited to perform high complexity testing. [facility] BY [id number] 12:43:22 Test Item Value Reference Range Interpretation [...] Not detected BY PCR (test code = 0555177) ENTEROPATHOGENIC E. COLI (EPEC) Not detected Not detected BY PCR (test code = 2088174) ENTEROTOXIGENIC E. COLI (ETEC) Not detected Not detected LT/ST BY PCR (test code = 5306632) SHIGA-LIKE TOXIN-PRODUCING E. Not detected Not detected COLI (STEC) STX1/STX2 (test code = 4549155) E. COLI O157 (PCR) (test code = 0691291) SHIGELLA/ENTEROINVASIVE E. COLI Not detected Not detected (EIEC) BY PCR (test code = 1655124) CRYPTOSPORIDIUM (PCR) (test code Not detected Not detected = 20160320) CYCLOSPORA CAYETANENSIS (PCR) Not detected Not detected (test code = 3068885) ENTAMOEBA HISTOLYTICA (PCR) Not detected Not detected (test code = 8153679) GIARDIA LAMBLIA (PCR) (test code Not detected Not detected = 20160413) ADENOVIRUS F 40/41 (PCR) (test Not detected Not detected code = 1520623) ASTROVIRUS (PCR) (test code = Not detected Not detected 20160415) NOROVIRUS GI/GII (PCR) (test Not detected Not detected code = 3672193) ROTAVIRUS A (PCR) (test code = Not detected Not detected 20160417) SAPOVIRUS (I, II, IV, V) BY PCR Not detected Not detected (test code = 20160418) VIBRIO (PARAHAEMOLYTICUS, Not detected Not detected VULNIFICUS) (test code = 2752306) Other viruses, parasites and bacteria not targeted by this PCR panel cannot be excluded; therefore clinical correlation and follow up of serology, culture results, and other molecular studies is required. The results are not intended to be used as the sole means for clinical diagnosis or patient management decisions. This sample was tested at the [facility] Molecular Diagnostics Laboratory using the AbraResto Gastrointestinal Panel. It is FDA cleared and has been verified and approved by the [facility] Molecular Diagnostics Laboratory for clinical [...] CONCENTRATION Decreased (CELLAVISION)(BEAKER) (test code = 3438) Nursing Unit Manager ID - Phyllis comments: Slide comments:CBC W/PLT COUNT & AUTO [id number] 08:49:57 Test Item Value Reference Range Interpretation [...] (test code = 413) Vitamin B12 and Qozrzd6721-67-70 07:20:11 Test Item Value Reference Range Interpretation Comments Vitamin B12 (test 1116 pg/mL 213-816 H code = 2132-9) Folate (test code = 3.50 ng/mL See_Comment L [Automa barron 2284-8) message] The system which generated this result transmit barron reference range : >=7.00. The reference range was not used to interpret this result as normal/abnormal . REJI (test code = REJI) Nursing Unit Manager ID - SHAQUILLE Reynolds Lab Interpretation Abnormal (test code = 08112-1) [facility] AND [id number] 07:20:11 Test Item Value Reference Range Interpretation Comments VITAMIN B12 (BEAKER) 1116 pg/mL 213-816 H (test code = 774) FOLATE (BEAKER) 3.50 ng/mL See_Comment L [Automated message] (test code = 362) The system which generated this result transmitted ref erence range: >=7.00. The reference range was not used to interpr et this result as normal/abnormal . Nursing Unit Manager ID - SHAQUILLE BETANCOURTOMPREHENSIVE METABOLIC DDMYV7107-41-74 06:57:06 Test Item Value Reference Range Interpretation [...] S NOT APPLICABLE FOR DIALYSIS PATIEN TS. Nursing Unit Manager ID - SHAQUILLE MSpecimen slightly ictericC-Reactive Lsgglbj6813-19-81 06:55:26 Test Item Value Reference Range Interpretation Comments CRP (test code = 676) 4.64 mg/dL 0.00-0.50 H REJI (test code = REJI) Nursing Unit Manager ID Ajay CORBIN M Lab Interpretation (test Abnormal code = 92087-6) [facility]2022-[facility]-22 06:55:26 Test Item Value Reference Range Interpretation Comments PHOSPHORUS (BEAKER) (test code = 1.8 mg/dL 2.3-4.7 L 604) Nursing Unit Manager ID - SHAQUILLE MC-REACTIVE SPMXYXG8188-54-38 06:55:26 Test Item Value Reference Range Interpretation Comments C-REACTIVE PROTEIN (BEAKER) (test 4.64 mg/dL 0.00-0.50 H code = 676) Nursing Unit Manager ID - SHAQUILLE JNKQKNAAPB0472-49-64 06:55:25 Test Item Value Reference Range Interpretation Comments MAGNESIUM (BEAKER) (test code = 2.3 mg/dL 1.6-2.6 627) Nursing Unit Manager ID Ajay CORBIN [place], TIBC, % sat. (without ferritin)2021-09-02 06:44:00 Test Item Value Reference Range Interpretation Comments Iron (test code = 2498-4) 28.0 ug/dL 40.0-160.0 L TIBC (test code = 2500-7) 243 ug/dL 250-450 L Iron % Saturation (test 12 % 20-55 L code = 2502-3) REJI (test code = REJI) Nursing Unit Manager ID Ajay CORBIN M Lab Interpretation (test Abnormal code = 30642-6) [facility], % SAT. (WITHOUT FERRITIN)2021-09-02 06:44:00 Test Item Value Reference Range Interpretation Comments IRON (BEAKER) (test code = 547) 28.0 ug/dL 40.0-160.0 L TOTAL IRON BINDING CAPACITY 243 ug/dL 250-450 L (BEAKER) (test code = 769) IRON % SATURATION (2) (BEAKER) 12 % 20-55 L (test code = 2590) Nursing Unit Manager ID - SHAQUILLE MCT, BRAIN, WITHOUT PAHEISNO8085-03-50 03:54:00Unlisted Reason for Exam - Click Yes and Enter Reason Below->No [facility] 1960 Sex: [...] MDReport Verified Date/Time: 09/02/2021 03:54:37 U/S, ABDOMINAL, [id number] 03:38:00Abdomen limited area? Add comment if clarification is needed.->Right upper quadrantReason for exam:->evaluate biliary tree/liver [facility] : 1960 [...] of hepatic steatosis. Signed: Dulce Maria Sales [facility] Verified Date/Time: 09/02/2021 03:38:29 Urinalysis w/Microscopic + Reflex to [id number] 02:29:12 Test Item Value Reference Range Interpretation Comments Color, UA (test code Brown = 5778-6) Clarity, UA (test Hazy code = 5767-9) Specific [place], UA 1.029 1.001-1.035 (test code = 5811-5) pH, UA (test code = 6.0 5.0-8.0 5803-2) Protein, UA (test 30 mg/dL Negative A code = 65966-1) Glucose, UA (test Negative Negative code = 365) Ketones, UA (test Negative Negative code = 2514-8) Bilirubin, UA (test Negative Negative code = 46328-0) Blood, UA (test code Small Negative A = 33949-0) Nitrite, UA (test Negative Negative code = 5802-4) Leukocytes, UA (test Moderate Negative A code = 5799-2) Urobilinogen, UA 0.2 mg/dL 0.2-1.0 (test code = 47692-6) RBC, UA (test code = 18 See_Comment [Autom ated 78018-2) message] The system which generated this result [...] . Bacteria, UA (test Rare code = 59414-1) Mucus (test code = Moderate 8247-9) Squam Epithel, UA 2 See_Comment [Automate d (test code = 87941-6) messag e] The system which generated this result transmit barron reference range : /HPF. The reference range was not used to interpret this result as normal/abnormal . Hyaline Casts, UA 3 See_Comment [Automate d (test code = 39861-7) messag e] The system which generated this result transmit barron reference range : /LPF. The reference range was not used to interpret this result as normal/abnormal . Crystals, Urine (test None Seen code = 57364-6) Amorphous Crystals Rare (test code = 54715-8) Specimen Source (test code = 2795) REJI (test code = REJI) Nursing Unit Manager ID - [auto]Nursing Unit Manager ID - tech Lab Interpretation Abnormal (test code = 19694-7) [facility] REFLEX URINE [id number] 02:29:12 Test Item Value Reference Range Interpretation [...] = 1584) SOURCE(BEAKER) (test code = 2795) Nursing Unit Manager ID - [auto]Nursing Unit Manager ID - techRAD, CHEST, 1 VIEW, NON SJFN2846-30-97 01:45:00Reason for exam:->leukocytosis, unable to provide historyShould this be performed at the bedside?->Yes [facility] : 1960 Sex: [...] 09/02/2021 01:45:23 CBC W/PLT COUNT & AUTO [id number] 00:20:23 Test Item Value Reference Range Interpretation [...] CONCENTRATION Decreased (CELLAVISION)(BEAKER) (test code = 3438) Nursing Unit Manager ID - Curtis Grullon comments: Slide comments:PT/lRWQ2412-18-84 23:44:49 Test Item Value Reference Interpretation Comments Range Protime (test code = 22.8 See_Comment H [Autom ated 5902-2) message] The system which generated this result transmitted reference range : 11.9 - 14.2 seconds. The reference range was not used to interpret this result as normal/abnormal . INR (test code = 2.04 See_Comment [Automated 1758-6) message] The system which generated this result transmitted reference range : <=5.90. The reference range was not used to interpret this result as normal/abnormal . PTT (test code = 35.2 See_Comment [Automated 61707-5) message] The system which generated this result [...] valves. Lab Interpretation Abnormal (test code = 72494-7) [facility]PT/LLJF0623-33-21 23:44:49 Test Item Value Reference Range Interpretation [...] for patients with mechanical heart valves.BASIC METABOLIC ATLAX7043-68-53 23:31:12 Test Item Value Reference Range Interpretation [...] S NOT APPLICABLE FOR DIALYSIS PATIEN TS. Nursing Unit Manager ID - DBSpecimen slightly lbreguvQFBXWBMBL2465-13-79 23:19:46 Test Item Value Reference Range Interpretation Comments MAGNESIUM (BEAKER) (test code = 1.8 mg/dL 1.6-2.6 627) Nursing Unit Manager ID - AGJGQGOMLEJJ2991-11-01 23:19:46 Test Item Value Reference Range Interpretation Comments PHOSPHORUS (BEAKER) (test code = 1.9 mg/dL 2.3-4.7 L 604) Nursing Unit Manager ID - DBHEPATIC FUNCTION [id number] 23:19:46 Test Item Value Reference Range Interpretation [...] (test code = 14 U/L 6-55 347) Nursing Unit Manager ID - DBSpecimen slightly ictericLactic acid, zqyzap7938-42-50 23:13:03 Test Item Value Reference Range Interpretation Comments Lactate, Venous (test 2.88 mmol/L 0.50-2.20 H code = 2872) REJI (test code = REJI) Nursing Unit Manager ID - DBSpecimen slightly icteric Lab Interpretation (test Abnormal code = 00810-3) [facility], [id number] 23:13:03 Test Item Value Reference Range Interpretation Comments LACTATE BLOOD VENOUS (2) (BEAKER) 2.88 mmol/L 0.50-2.20 H (test code = 2872) Nursing Unit Manager ID - DBSpecimen slightly ictericPOC-Glucose bbopf3614-80-17 22:47:30 Test Item Value Reference Range Interpretation Comments POC-Glucose Meter (test 106 mg/dL 70-110 : TE STED AT [facility] code = 1538) [address] [facility], [address] 30: Nursing Unit Manager/Techni sowmya ID = [id number] for ULJOVANTTIL, TAYA K Lab Interpretation (test Normal code = 25476-4) [facility]UCOSE [id number] 22:47:30 Test Item Value Reference Range Interpretation Comments POC-GLUCOSE METER 106 mg/dL 70-110 : TESTED A T [facility] [address] (BEAKER) (test code = [facility], 1538) [address]: Nursing Unit Manager/Techni sowmya ID = [id number] for UL LATTIL, WALE C1Q class 1 & 2 adgwloxa8279-37-96 17:38:21 Test Item Value Reference Range Interpretation Comments Interpretation (test code ADDITIONAL ANTIBODY = 1655226) INFORMATION:DQ7 = DQB1*03:01; DQA1*05:03DQ7 = DQB1*03:19; DQA1*05:05DQ7 = DQB1*03:01; DQA1*06:01DQ9 = DQB1*03:03; DQA1*02:01DQ9 = DQB1*03:03; DQA1*03:02DQ8 = DQB1*03:02; DQA1*03:01DQ8 = DQB1*03:02; DQA1*03:02 Case number (test code = [id number]) C1Q class 1 & 2 antibody See link below for (test code = 9962857) PDF [facility] Report [facility], diffusion, lung volumes, [facility]/[id number] 19:27:26 Test Item Value Reference Range Interpretation [...] Predicted (test code = 67.9 % 5368) [facility] xakawan1591-36-06 13:53:30 Test Item Value Reference Range Interpretation Comments POC glucose (test code = 124 mg/dL 65-99 H Ope rator Name: [id number]) Clint Bustamante RDevice ID: [id number] able : [facility] Notified linen attendant Interpretation (test Abnormal code = 46704-5) [facility] antigen sflnt8734-15-13 11:33:46 Test Item Value Reference Range Interpretation Comments SAB interpretation (test Additional Antibody code = 5950) Information:DQ2=DQB1 *02:01/DQA1*04:01, DQB1*02:01/DQA1*05:0 3KL7=GMC1*04:02/DQA1 *04:52VF3=RAB3*03:01 /DPA1*01:03, DPB1*03:01/DPA1*02:0 6OJ9=FPO8*04:02/DPA1 *01:84CJ13=ZHW4*28:0 1/DPA1*01:03 SAB serum ID (test code = [id number] 5866) SAB serum collection D&T 08/23/2021 05:49 AM (test code = 5867) SAB class I antibody A11,A74,A32,A3,A31,A assignment (test code = 30,A36,A1,A29,A66,A8 5870) 0,A26,A25,A43,A34,A3 3,B82 SAB cPRA class I (test code = 5868) SAB class II antibody DR18,DR17,DR13,DR14, assignment (test code = DR52,DR11,DR8,DQ7,DR 5871) 12,DQ9,DR9,DR7,DQ8,D Q2,DR4,DQ4,DP2,DP14, DP4,DP9,DP10,DP18,DP 20,DP17,DP3,DP28 SAB cPRA class II (test code = 5869) Case number (test code = [id number]) Single antigen beads See link below for (test code = 4604) PDF [facility] Report [facility]icsProtein, urine, nofub2534-69-06 20:20:55 Test Item Value Reference Range Interpretation Comments Collection start date, urine (test 08/23/21 code = 44325-7) Collection start time, urine (test 8:40 code = 94052-1) Collection stop date, urine (test 08/24/21 code = 87046-3) Collection stop time, urine (test 8:40 code = 40124-9) Hours of collection (test code = 20919-4) Total volume, urine (test code = 800 mL 27910-9) Urine protein concentration (test 7 mg/dL code = 90874-9) Urine protein excretion (test code = mg/vol 2448) [facility], [id number] 20:20:52 Test Item Value Reference Range Interpretation Comments Collection start date, urine (test 08/23/21 code = 72922-8) Collection start time, urine (test 8:40 code = 83808-7) Collection stop date, urine (test 08/24/21 code = 10212-6) Collection stop time, urine (test 8:40 code = 65737-4) Hours of collection (test code = 53044-1) Total volume, urine (test code = 800 mL 48795-3) Urine creatinine concentration 114 mg/dL (test code = 75633-5) Urine creatinine excretion (test mg/vol code = 13369-8) [facility] RNA [Presence] in Respiratory specimen by GUSTAVO with probe [id number] 20:48:05 Test Item Value Reference Range Interpretation Comments SARS-CoV-2 (COVID-19) RNA Not detected Not-Detected [Presence] in Respiratory specimen by GUSTAVO with probe detection (test code = 63607-0) 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 (test code = 79916-3) Whether the patient has symptoms related to condition of interest (test code = 47873-7) Patient was hospitalized because of this condition (test code = 98883-0) Whether the patient was admitted to intensive care unit (ICU) for condition of interest (test code = 62980-6) Whether patient resides in a congregate care setting (test code = 48211-9) ECG 12 [id number] 15:33:38 Test Item Value Reference Range Interpretation Comments Ventricular rate (test code = 253) Atrial rate (test code = 255) OK interval (test code = 266) QRSD interval [...] out Inferior infarct , age undetermined-Abnormal ECG- [facility] transplant [id number] 14:27:40 Test Item Value Reference Range Interpretation Comments HLA transplant evaluation See link below for (test code = 50785-3) PDF Lab Report Case number (test code = [id number]) [facility] ED Preliminary Interpretation - Not an [id number] 02:54:33 Test Item Value Reference Range Interpretation Comments REJI (test code = REJI) Orlando Balderrama MD 08/17/2021 10:33 [facility] [place] ED Preliminary Interpretation - Not an OrderPerformed by: Orlando Balderrama MDAuthorized by: Orlando Balderrama MD ECG reviewed by ED Physician in the absence of a metal buffer: yes Interpretation: Interpretation: abnormal Rate: ECG rate: 80 ECG rate assessment: normal Rhythm: Rhythm: sinus rhythm QRS: QRS axis: Normal QRS intervals: NormalST segments: ST segments: NormalOther findings: Other findings: prolonged qTc interval Lab Interpretation Abnormal (test code = 33617-4) [facility] QvmwuinjUTCI-GoR-4 (COVID-19) RNA [Presence] in Respiratory specimen by GUSTAVO with probe [id number] 23:59:30 Test Item Value Reference Range Interpretation Comments SARS-CoV-2 (COVID-19) RNA Not detected Not-Detected [Presence] in Respiratory specimen by GUSTAVO with probe detection (test code = 06049-0) 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 (test code = 36825-4) Whether the patient has symptoms related to condition of interest (test code = 18103-0) Patient was hospitalized because of this condition (test code = 74503-0) Whether the patient was admitted to intensive care unit (ICU) for condition of interest (test code = 01562-4) Whether patient resides in a congregate care setting (test code = 01234-2) status (test code = 02912-4) SARS-CoV-2 (COVID-19) RNA [Presence] in Respiratory specimen by GUSTAVO with probe [id number] 14:46:31 Test Item Value Reference Range Interpretation Comments SARS-CoV-2 (COVID-19) RNA Not detected Not-Detected [Presence] in Respiratory specimen by GUSTAVO with probe detection (test code = 95606-1) 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 (test code = 15027-2) Whether the patient has symptoms related to condition of interest (test code = 53875-5) Patient was hospitalized because of this condition (test code = 09378-8) Whether the patient was admitted to intensive care unit (ICU) for condition of interest (test code = 85737-7) Whether patient resides in a congregate care setting (test code = 89379-9) status (test code = 42262-9) SARS-CoV-2 (COVID-19) RNA [Presence] in Respiratory specimen by GUSTAVO with probe [id number] 19:52:10 Test Item Value Reference Range Interpretation Comments SARS-CoV-2 (COVID-19) RNA Not detected Not-Detected [Presence] in Respiratory specimen by GUSTAVO with probe detection (test code = 23872-2) 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 (test code = 15869-3) Whether the patient has symptoms related to condition of interest (test code = 93105-9) Patient was hospitalized because of this condition (test code = 69479-8) Whether the patient was admitted to intensive care unit (ICU) for condition of interest (test code = 27655-6) Whether patient resides in a congregate care setting (test code = 65119-5) status (test code = 09504-3) SARS-CoV-2 (COVID-19) RNA [Presence] in Respiratory specimen by GUSTAVO with probe [id number] 19:31:11 Test Item Value Reference Range Interpretation Comments SARS-CoV-2 (COVID-19) RNA Not detected Not-Detected [Presence] in Respiratory specimen by GUSTAVO with probe detection (test code = 64904-1) 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 (test code = 11529-2) Whether the patient has symptoms related to condition of interest (test code = 17352-7) Patient was hospitalized because of this condition (test code = 28728-3) Whether the patient was admitted to intensive care unit (ICU) for condition of interest (test code = 19410-1) Whether patient resides in a congregate care setting (test code = 23454-3) status (test code = 09666-4) SARS-CoV-2 (COVID-19) RNA [Presence] in Respiratory specimen by GUSTAVO with probe [id number] 02:26:38 Test Item Value Reference Range Interpretation Comments SARS-CoV-2 (COVID-19) RNA Not detected Not-Detected [Presence] in Respiratory specimen by GUSTAVO with probe detection (test code = 57720-8) SARS-CoV-2 (COVID-19) RNA [Presence] in Respiratory specimen by GUSTAVO with probe [id number] 21:10:32 Test Item Value Reference Range Interpretation Comments SARS-CoV-2 (COVID-19) RNA Not detected Not-Detected [Presence] in Respiratory specimen by GUSTAVO with probe detection (test code = 87603-4) SARS-CoV-2 (COVID-19) RNA [Presence] in Respiratory specimen by GUSTAVO with probe [id number] 19:03:37 Test Item Value Reference Range Interpretation Comments SARS-CoV-2 (COVID-19) RNA Not detected Not-Detected [Presence] in Respiratory specimen by GUSTAVO with probe detection (test code = 05899-0) SARS-CoV-2 (COVID-19) RNA [Presence] in Respiratory specimen by GUSTAVO with probe [id number] 05:36:17 Test Item Value Reference Range Interpretation Comments SARS-CoV-2 (COVID-19) RNA Not detected Not-Detected [Presence] in Respiratory specimen by GUSTAVO with probe detection (test code = 12803-0) SARS-CoV-2 (COVID-19) IgG+IgM Ab [Presence] in Serum or Plasma by Immunoassay 2020-08-13 09:52:00 Test Item Value Reference Range Interpretation Comments SARS-CoV-2 (COVID-19) IgG+IgM Ab Not detected [Presence] in Serum or Plasma by Immunoassay (test code = 63095-5) SARS-CoV-2 (COVID-19) RNA [Presence] in Respiratory specimen by GUSTAVO with probe [id number] 04:46:40 Test Item Value Reference Range Interpretation Comments SARS-CoV-2 (COVID-19) RNA [Presence] Detected Not-Detected in Respiratory specimen by GUSTAVO with probe detection (test code = 73472-4) SARS-CoV-2 (COVID-19) RNA [Presence] in Respiratory specimen by GUSTAVO with probe [id number] 00:55:48 Test Item Value Reference Range Interpretation Comments SARS-CoV-2 (COVID-19) RNA Not detected Not-Detected [Presence] in Respiratory specimen by GUSTAVO with probe detection (test code = 53312-0) SARS-CoV-2 (COVID-19) RNA [Presence] in Respiratory specimen by GUSTAVO with probe [id number] 08:17:26 Test Item Value Reference Range Interpretation Comments SARS-CoV-2 (COVID-19) RNA Not detected Not-Detected [Presence] in Respiratory specimen by GUSTAVO with probe detection (test code = 53916-2) SARS-CoV-2 (COVID-19) RNA [Presence] in Respiratory specimen by GUSTAVO with probe [id number] 00:04:18 Test Item Value Reference Range Interpretation Comments SARS-CoV-2 (COVID-19) RNA Not detected Not-Detected [Presence] in Respiratory specimen by GUSTAVO with probe detection (test code = 89344-3) SARS-CoV-2 (COVID-19) RNA [Presence] in Respiratory specimen by GUSTAVO with probe [id number] 04:41:17 Test Item Value Reference Range Interpretation Comments SARS-CoV-2 (COVID-19) RNA Not detected Not-Detected [Presence] in Respiratory specimen by GUSTAVO with probe detection (test code = 72904-6) SARS-CoV-2 (COVID-19) RNA [Presence] in Respiratory specimen by GUSTAVO with probe [id number] 04:13:39 Test Item Value Reference Range Interpretation Comments SARS-CoV-2 (COVID-19) RNA Not detected Not-Detected [Presence] in Respiratory specimen by GUSTAVO with probe detection (test code = 54149-7)
[2022-01-21 13:53] LABS: Absolute Lymphocytes (CBC) 1.1 K/uL (0.7-4.9); Lymphocytes % 10.5 % (15.3-44.8); MPV 7.5 fL (7.6-11.3); RBC Red Blood Cell Count 3.49 M/uL (3.86-4.86)
[2022-01-21] MEDS ORDERED: PANTOPRAZOLE 40 MG INJ ONE (14:02)
[2022-01-21] MEDS ORDERED: NA CHLORIDE 0.9% 1,000 ML ONE (14:02)
[2022-01-21] MEDS ORDERED: ONDANSETRON 4 MG/2 ML VIAL ONE (14:02)
[2022-01-21 14:13] LABS: Bilirubin Total 4.4 mg/dL (0.2-1.0); Protein, Total 6.9 g/dL (6.4-8.2)
[2022-01-21 14:14] LABS: Potassium 2.4 mmol/L (3.5-5.1)
--- NOTE | 2022-01-21 14:40 | ER ---
Nurse's Notes [facility] Name: Bella Barron Age: 61 yrs Sex: Female : 1960 Arrival Date: 01/21/2022 Time: 13:29 Bed 11 Private MD: Diagnosis: Lower Gi BLeeding;CAM;Hypokalemia Presentation: 01/21 13:29 Chief complaint: EMS states: was just d/c from hospital on Saturday for GI bleed post iw colonoscopy and endoscopy , still having bleeding in her stool today and nausea /vomiting. Coronavirus screen: At this time, the client does not indicate any symptoms associated with coronavirus-19. Ebola Screen: Patient negative for fever greater than or equal to 101.5 degrees Fahrenheit, and additional compatible Ebola Virus Disease symptoms Patient denies exposure to infectious person. Patient denies travel to an Ebola-affected area in the 21 days before illness onset. No symptoms or risks identified at this time. Initial Sepsis Screen: Does the patient meet any 2 criteria? No. Patient's initial sepsis screen is negative. Does the patient have a suspected source of infection? No. Patient's initial sepsis screen is negative. Risk Assessment: Do you want to hurt yourself or someone else? Patient reports no desire to harm self or others. Onset of symptoms was January 21, 2022. 13:29 Method Of Arrival: EMS: [facility] iw 13:29 Acuity: OLEG 3 iw Historical: - Allergies: 13:31 Iodine; iw 13:31 Phenergan; iw 13:31 Rocephin; iw 13:32 Ciprofloxacin; iw - PMHx: 13:31 Cirrhosis; Colitis; Liver disease; needs kidney and liver transplant; Depression; iw Crohn's; - PSHx: 13:31 Cholecystectomy; TIPS procedure; bowel resection; Total abdominal hysterectomy; iw Screenin:52 Abuse screen: Denies threats or abuse. Denies injuries from another. Nutritional iw screening: No deficits noted. Tuberculosis screening: No symptoms or risk factors identified. Fall Risk IV access (20 points). Assessment: 13:52 General: Appears in no apparent distress. Behavior is cooperative. Pain: Complains of iw pain in chest, abdomen, right leg and left leg. Neuro: Level of Consciousness is awake, alert, obeys commands, Oriented to person, place, time, situation, Moves all extremities. Cardiovascular: Patient's skin is warm and dry. Respiratory: Respiratory effort is even, unlabored, Respiratory pattern is regular. GI: Reports lower abdominal pain, upper abdominal pain, diarrhea, bloody stool, nausea. Derm: Skin is fragile, is thin, Skin is. 15:52 Reassessment: Patient appears in no apparent distress at this time. Patient and/or iw family updated on plan of care and expected duration. Pain level reassessed. Patient is alert, oriented x 3, equal unlabored respirations, skin warm/dry/pink. pt c/o pain and nausea, requesting ice chips. Vital Signs: 13:29 BP 119 / 58; Pulse 91; Resp 16; Temp 99.1; Pulse Ox 98% on R/A; Weight 71.21 kg; Height iw 4 ft. 11 in. (149.86 cm); 16:07 BP 114 / 56; Pulse 79; Resp 16; Pulse Ox 98% on R/A; iw 13:29 Body Mass Index 31.71 (71.21 kg, 149.86 cm) iw ED Course: 13:29 Patient arrived in ED. iw 13:30 Nellie Murrell PA is PHCP. en 13:30 Yves French MD is Attending Physician. en 13:30 Triage completed. iw 13:31 Arm band placed on. iw 13:49 Albania Fernandez, RN is Primary Nurse. iw 13:49 Initial lab(s) drawn, by me, sent to lab. Inserted saline lock: 20 gauge in left iw antecubital area, using aseptic technique. Blood collected. 14:38 Miguel Encarnacion MD is Hospitalizing Provider. en Administered Medications: 14:01 Drug: NS 0.9% 1000 ml Route: IV; Rate: 1 bolus; Site: left antecubital; iw 15:15 Follow up: IV Status: Completed infusion iw 14:01 Drug: Zofran (Ondansetron) 4 mg Route: IVP; Site: left antecubital; iw 14:53 Follow up: Response: No adverse reaction iw 14:01 Drug: ProTONIX (pantoprazole) 40 mg Route: IVP; Site: left antecubital; iw 14:30 Follow up: Response: No adverse reaction iw 14:45 Drug: morphine 4 mg Route: IVP; Infused Over: 4 mins; Site: left antecubital; iw 15:10 Follow up: Response: No adverse reaction; Pain is decreased iw 14:55 Drug: Reglan (metoCLOPramide) 10 mg Route: IVP; Site: left antecubital; iw 15:15 Follow up: Response: No adverse reaction iw 15:04 Drug: Potassium Chloride 20 mEq Route: IV; Rate: calculated rate; Site: left iw antecubital; 18:00 Follow up: IV Status: Completed infusion iw 15:49 Drug: Potassium Chloride 40 mEq Route: PO; iw 16:30 Follow up: Response: No adverse reaction iw Outcome: 14:39 Decision to Hospitalize by Provider. en 17:44 Patient left the ED. iw Signatures: Albania Feranndez RN RN iw Nellie Murrell PA PA en
--- NOTE | 2022-01-21 14:40 | EDPHYS ---
Physician Documentation [facility] Name: Bella Barron Age: 61 yrs Sex: Female : 1960 Arrival Date: 01/21/2022 Time: 13:29 Bed 11 Private MD: ED Physician Yves French HPI: 01/21 13:32 This 61 yrs old Female presents to ER via EMS with complaints of Bloody Stools. en 13:32 61-year-old female with history of Crohn's disease and colitis as well as nonalcoholic en cirrhosis presents to the ED with persistent rectal bleeding status post EGD and colonoscopy with biopsies [address] Rosas. Patient was seen in the ED yesterday for bleeding. Her hemoglobin at that time was..... she was discharged home but reports persistent bleeding overnight with large dark maroon clots. No abdominal pain. She reports generalized weakness and fatigue without chest pain, shortness of breath, dyspnea exertion, palpitations or syncope.. Historical: - Allergies: 13:31 Iodine; iw 13:31 Phenergan; iw 13:31 Rocephin; iw 13:32 Ciprofloxacin; iw - PMHx: 13:31 Cirrhosis; Colitis; Liver disease; needs kidney and liver transplant; Depression; iw Crohn's; - PSHx: 13:31 Cholecystectomy; TIPS procedure; bowel resection; Total abdominal hysterectomy; iw ROS: 13:32 Eyes: Negative for injury, pain, redness, and discharge. en 13:32 Constitutional: Positive for fatigue, Negative for body aches, chills, fever. 13:32 Eyes: Negative for blurry vision. 13:32 Cardiovascular: Negative for chest pain, edema, orthopnea, palpitations. 13:32 Respiratory: Negative for cough, dyspnea on exertion, shortness of breath. 13:32 Abdomen/GI: Positive for nausea, vomiting, and diarrhea, rectal bleeding. 13:32 Skin: Negative for jaundice, rash. 13:32 Neuro: Negative for dizziness, headache, syncope, near syncope, tingling, weakness. 13:32 All other systems are negative. Exam: 13:32 Constitutional: The patient appears alert, awake, Fatigued appearing but nontoxic and en cooperative 13:32 Eyes: Pupils: equal, round, and reactive to light and accomodation, Extraocular movements: intact throughout, Conjunctiva: normal, no exudate, no injection. 13:32 ENT: Mouth: Lips: normal, Oral mucosa: pink and intact, moist, Posterior pharynx: Airway: patent. 13:32 Cardiovascular: Rate: normal, Rhythm: regular, Pulses: no pulse deficits are appreciated, Heart sounds: normal, no murmur, no rub, no gallop. 13:32 Respiratory: the patient does not display signs of respiratory distress, Respirations: normal, Breath sounds: are clear throughout, no rales, rhonchi, no stridor, no wheezing. 13:32 Abdomen/GI: Inspection: abdomen appears normal, Bowel sounds: normal, in all quadrants, Palpation: abdomen is soft and non-tender, in all quadrants. 13:32 Musculoskeletal/extremity: ROM: intact in all extremities, full active range of motion. 13:32 Skin: Good color, no pallor. 13:32 Neuro: Orientation: appropriate for stated age, to person, place \T\ time. Mentation: appropriate for stated age. 13:32 Psych: Behavior/mood is pleasant, cooperative, Affect is calm. Vital Signs: 13:29 BP 119 / 58; Pulse 91; Resp 16; Temp 99.1; Pulse Ox 98% on R/A; Weight 71.21 kg; Height iw 4 ft. 11 in. (149.86 cm); 16:07 BP 114 / 56; Pulse 79; Resp 16; Pulse Ox 98% on R/A; iw 13:29 Body Mass Index 31.71 (71.21 kg, 149.86 cm) iw MDM: 13:32 Differential diagnosis: GI bleeding status post endoscopies with biopsies. Data en reviewed: vital signs, nurses notes, lab test result(s). 13:42 Patient medically screened. en 14:33 ED course: Reviewed imaging and labs. Pt still feeling fatigued. K2.4, Cr 1.5. will en admit for lower GI bleeding, cam and hypokalemia. Will admit to Medicine, Dr Encarnacion. Accepted by TESSIE Cooper. Will start KCL. 01/21 13:31 Order name: CBC with Diff en 01/21 13:31 Order name: CMP; Complete Time: 14:28 en 01/21 14:37 Order name: Potassium en 01/21 15:02 Order name: CBC Smear Scan EDMS 01/21 16:46 Order name: Urinalysis EDMS 01/21 16:46 Order name: Basic Metabolic Panel EDMS 01/21 16:46 Order name: Basic Metabolic Panel EDMS 01/21 16:46 Order name: CBC with Automated Diff EDMS 01/21 16:46 Order name: CBC with Automated Diff EDMS 01/21 16:51 Order name: Hematocrit EDMS 01/21 16:51 Order name: Hematocrit EDMS 01/21 16:51 Order name: Hemoglobin EDMS 01/21 16:51 Order name: Hemoglobin EDMS 01/21 13:31 Order name: Saline Lock; Complete Time: 13:50 en 01/21 16:46 Order name: Clear Liquid EDMS Administered Medications: 14:01 Drug: NS 0.9% 1000 ml Route: IV; Rate: 1 bolus; Site: left antecubital; iw 15:15 Follow up: IV Status: Completed infusion iw 14:01 Drug: Zofran (Ondansetron) 4 mg Route: IVP; Site: left antecubital; iw 14:53 Follow up: Response: No adverse reaction iw 14:01 Drug: ProTONIX (pantoprazole) 40 mg Route: IVP; Site: left antecubital; iw 14:30 Follow up: Response: No adverse reaction iw 14:45 Drug: morphine 4 mg Route: IVP; Infused Over: 4 mins; Site: left antecubital; iw 15:10 Follow up: Response: No adverse reaction; Pain is decreased iw 14:55 Drug: Reglan (metoCLOPramide) 10 mg Route: IVP; Site: left antecubital; iw 15:15 Follow up: Response: No adverse reaction iw 15:04 Drug: Potassium Chloride 20 mEq Route: IV; Rate: calculated rate; Site: left iw antecubital; 18:00 Follow up: IV Status: Completed infusion iw 15:49 Drug: Potassium Chloride 40 mEq Route: PO; iw 16:30 Follow up: Response: No adverse reaction iw Disposition: 18:31 Co-signature as Attending Physician, Yves French MD I agree with the assessment and kdr plan of care. Disposition Summary: 01/21/22 14:39 Hospitalization Ordered Hospitalization Status: Inpatient Admission en Provider: Miguel Encarnacion Location: Telemetry/MedSurg (Inpatient) en Condition: Fair en Problem: new en Symptoms: are unchanged en Bed/Room Type: Standard en Room Assignment: 231(01/21/22 16:44) iw Diagnosis - Lower Gi BLeeding en - CAM en - Hypokalemia en Forms: - Medication Reconciliation Form en - SBAR form en Signatures: Dispatcher [employer] Yves Acosta MD MD kdr Williams, Irene, RN RN iw Nellie Murrell PA PA en Corrections: (The following items were deleted from the chart) 16:44 14:39 en iw
[2022-01-21] MEDS ORDERED: MORPHINE 4 MG/ML SYR ONE (14:49)
[2022-01-21] MEDS ORDERED: METOCLOPRAMIDE 10 MG/2mL INJ ONE (14:49)
[2022-01-21] MEDS ORDERED: KCL 20 MEQ/100 mL IVPB 100 ML IV ONE (14:50)
[2022-01-21] MEDS ORDERED: POTASSIUM CL SA 10 MEQ TAB PO ONE (14:50)
[2022-01-21 15:01] LABS: Anisocytosis 2+; Blood Morphology Comment NOTED (NOT SEEN); Platelet Estimate DECR; Poikilocytosis 2+; White Blood Cell Scan OK (OK)
[2022-01-21 15:06] LABS: Polychromasia 2+
[2022-01-21] MEDS ORDERED: HYDRALAZINE HCL 20 MG/ML VIAL IV PRN (16:39)
[2022-01-21] MEDS ORDERED: MELATONIN 5 MG TABLET PO PRN (16:40)
[2022-01-21] MEDS ORDERED: ACETAMINOPHEN 500 MG TAB PO PRN (16:43)
[2022-01-21] MEDS ORDERED: Ubrogepant [Ubrelvy] 100 MG Tablet PO PRN (16:51)
--- NOTE | 2022-01-21 16:53 | P.HP ---
Certification for Inpatient With expected LOS: >2 Midnights Patient will require the following post-hospital care: None Practitioner: I am a practitioner with admitting privileges, knowledge of patient current condition, hospital course, and medical plan of care. Services: Services provided to patient in accordance with Admission requirements found in Title 42 Section 412.3 of the Code of Federal Regulations Patient History Date of Service: 01/21/22 Reason for admission: Bloody stools History of Present Illness: Patient is a 61-year-old female with a past medical history significant for cirrhosis, CKD, depression, Chrons disease who presents with complaint of bloody stools that has been ongoing for the past 2 days. Patient reported that she had an EGD and colonoscopy with biopsies with her canary raiser 4 days ago. Patient describes blood as dark maroon in color and also indicated the presence of large blood clots whenever she had a bowel movement. Patient also reported that she has been having episodes of diarrhea as well. Patient reported associated signs and symptoms of nausea, vomiting, dizziness, chills, headache and generalized abdominal pain. Patient rated pain as 10/10 and described pain as stabbing in quality. Patient denies any other signs or symptoms. Patient was seen in the ED yesterday and was discharged home. Patient indicated that rectal bleeding became worse when she got home hence she decided to present to the hospital for medical evaluation. Patient also indicated that she has not been able to keep any p.o. intake down. Of note, patient reported that episodes of rectal bleeding and diarrhea has subsided since being in the hospital. Allergies ceftriaxone [From Rocephin] Allergy (Verified 10/08/21 03:16) Anaphylaxis iodine Allergy (Verified 10/08/21 03:16) Anaphylaxis promethazine [From Phenergan] Allergy (Verified 10/08/21 03:16) Itching ciprofloxacin Adverse Reaction (Verified 01/17/22 08:20) Hives/Rash lactase [From Dairy Aid] Adverse Reaction (Verified 01/21/22 18:19) Nausea/Vomiting Fish Allergy (Uncoded 10/10/20 20:17) Rash Home Medications: Ondansetron [Zofran (Odt)*] 4 mg PO DAILY PRN 10/09/21 Rifaximin [Xifaxan] 550 mg PO BID 10/09/21 Spironolactone [Aldactone*] 50 mg PO DAILY 10/09/21 Ubrogepant [Ubrelvy] 100 mg PO SEECOM PRN 10/09/21 Gabapentin 300 mg PO BID 12/04/21 Ramelteon 8 mg PO BEDTIME 12/05/21 traMADol HCL [Ultram*] 50 mg PO Q6H PRN #10 tab 12/30/21 ARIPiprazole [Abilify] 5 mg PO BEDTIME 01/17/22 Diphenoxylate HCl/Atropine [Diphenoxylate-Atrop 2.5-0.025] 1 each PO DAILY 01/17/22 Fluoxetine HCl [Prozac] 20 mg PO DAILY 01/17/22 Furosemide [Lasix] 20 mg PO BID 01/17/22 - Past Medical/Surgical History Diabetic: No -: Crohn's Disease -: Chronic liver cirrhosis with TIPS procedure -: Depression with anxiety -: Neuropathy -: Insomnia -: Parkinson's -: CKD 3 -: Anemia chronic disease -: Chronic 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 -: Gout -: Insomnia -: Gout -: multiple abdominal surgery due to Crohn's -: TIPS procedure -: Bleeding esophageal varices surgery Psychosocial/ Personal History: Patient disabled, lives with family - Family History Mother -: Blood disorders Notes: recently from blood disease Father -: Heart disease - Social History Smoking Status: Never smoker Alcohol use: No CD- Drugs: No Caffeine use: Yes Review of Systems General: Chills, Weakness, Malaise Eyes: Unremarkable ENT: Unremarkable Respiratory: Unremarkable Cardiovascular: Unremarkable Gastrointestinal: Nausea, Vomiting, Abdominal Pain, Diarrhea, Hematochezia, Other (Bloody stools ) Genitourinary: Dysuria Musculoskeletal: Unremarkable Integumentary: Unremarkable Neurological: Weakness, Other (Headache, dizziness ) Lymphatics: Unremarkable Physical Examination - Physical Exam General: Alert, Oriented x3, Cooperative HEENT: Normocephalic, PERRLA Neck: Supple, 2+ carotid pulse no bruit, JVD not distended Respiratory: Clear to auscultation bilaterally, Normal air movement Cardiovascular: No edema, Normal pulses, Regular rate/rhythm Capillary refill: <2 Seconds Gastrointestinal: Normal bowel sounds, Soft and benign, Tenderness Musculoskeletal: No clubbing, No swelling, No contractures, No erythema Integumentary: No rashes, No breakdown, No erythema Neurological: Normal speech, Sensation intact Lymphatics: No axilla or inguinal lymphadenopathy - Studies Laboratory Data (last 24 hrs) 01/21/22 13:45: Sodium 138, Potassium 2.4 L*, BUN 8, Creatinine 1.53 H, Glucose 106, Total Bilirubin 4.4 H, AST 22, ALT 16, Alkaline Phosphatase 72 01/21/22 13:45: WBC 10.5 D, Hgb 10.7 L, Hct 31.0 L, Plt Count 116 L Assessment and Plan - Plan -- Gastrointestinal bleeding. Status post colonoscopy/EGD with biopsies. Gastroenterology consulted. H&H stable. Recommended starting patient on Cipro\Flagyl and Anusol suppository. Will await further recommendation from canary raiser. -- Liver cirrhosis. Status post TIPS procedure. No decompensation noted. Continue home medication. Further management per canary raiser. --Colitis. Noted on CT abdomen done on 01/20/2022. Patient placed on Cipro and Plavix. Continue IV hydration. --Nausea and vomiting. Antiemetics on board. Continue IV hydration. --CAM on CKD 3A. Likely secondary to dehydration. Continue IV hydration. Will reassess renal functions in a.m. -- Hypokalemia. Replete as needed. --Diarrhea. Patient reported that she has not had any episode of diarrhea since being in the hospital. Continue antibiotics and supportive care. --Blood loss anemia. H&H stable. We will continue to monitor hemoglobin and transfuse if less than 7.0. --Crohn's disease. Continue home medications and supportive care. Further management per canary raiser. --Class I obesity. Likely secondary to excess calories intake and sedentary lifestyle. Patient counseled on weight reduction, diet and exercise therapy. --Depression\Anxiety. Continue home medications --Peripheral neuropathy. Continue gabapentin. --Insomnia. Continue home medication --DVT prophylaxis with SCDs. Discharge Plan: Home Plan to discharge in: 48 Hours - Advance Directives Does patient have a Living Will: No Does patient have a Durable POA for Healthcare: Yes - Code Status/Comfort Care Code Status Assessed: Yes Code Status: Full Code Physician Review: Patient Assessed, Agree with Above Assessment and Plan Critical Care: No
[2022-01-21] MEDS ORDERED: HYDROCODONE/APAP 5/325 MG TAB ONE (17:33)
[2022-01-21] MEDS: HYDROCODONE/APAP 5/325 MG TAB PO PRN (17:40)
[2022-01-21] MEDS: METRONIDAZOLE 500mg IVPB 500 MG/100 ML BAG IV SCH (18:26)
[2022-01-21] MEDS: NA CHLORIDE 0.9% 1,000 ML IV SCH (18:26)
[2022-01-21 20:12] LABS: Hematocrit 30.5 % (36.0-45.0)
[2022-01-21] MEDS ORDERED: HOME MED 1 EA UNK (Ramelteon [Ramelteon] 8 MG Tablet) PO SCH (21:00)
[2022-01-21] MEDS ORDERED: TOPIRAMATE 25 MG TAB PO SCH (21:00)
[2022-01-21] MEDS ORDERED: CIPROFLOXACIN 400mg IV 400 MG/200 ML BAG IV SCH (21:00)
[2022-01-21] MEDS ORDERED: ZOLPIDEM TARTRATE 5 MG TABLET PO SCH (21:30)
[2022-01-21] MEDS: GABAPENTIN 300 MG CAP PO SCH (21:38)
[2022-01-21] MEDS ORDERED: RAMELTEON 8 MG PO SCH (22:00)
[2022-01-21] MEDS: Rifaximin 550 MG Tab PO SCH (22:07)
[2022-01-21] MEDS: RAMELTEON 8 MG PO SCH (22:36)
[2022-01-21 23:01] VITALS: BMI 31.7
[2022-01-21 23:09] LABS: Urine Appearance Clear (Clear); Urine Blood Negative (Negative); Urine Color Orange (Yellow); Urine Glucose Negative (Negative); Urine Protein Trace (Negative); Urine Urobilinogen 0.2 mg/dL (0.2-1.0)
[2022-01-21 23:18] LABS: Urine Microscopic Reflex ORDER UMIC
[2022-01-21 23:22] LABS: Urine Bilirubin 2+ (Negative)
[2022-01-21 23:42] LABS: Urine Urothelial Cells <5 /HPF (NONE SEEN); Urine Yeast FEW (NONE SEEN)
[2022-01-21 23:49] LABS: Urine Bacteria <20 /HPF (<20); Urine RBC <5 /HPF (NONE SEEN)
[2022-01-22] MEDS: KCL 20 MEQ/100 mL IVPB 20 MEQ/100 ML BAG IV SCH ×5 (00:15→23:29)
[2022-01-22] MEDS: ONDANSETRON 4 MG/2 ML VIAL IV PRN ×2 (00:15→14:06)
[2022-01-22] MEDS ORDERED: Magnesium Sulfate 2gm IVPB 2 G/50 ML BAG IV ONE (00:22)
[2022-01-22] MEDS: HYDROCORTISONE ACETATE 25MG SUPP PR SCH ×2 (00:24→09:52)
[2022-01-22] MEDS: METRONIDAZOLE 500mg IVPB 500 MG/100 ML BAG IV SCH ×3 (01:09→16:25)
--- NOTE | 2022-01-22 06:46 | P.PN ---
Date of Service: 01/22/22 Subjective: feels "lousy" continues with abd pain, norco doesn't help +nausea, no emesis since admission maroon stool / watery ROS: 10 point ROS as noted above, otherwise negative Physical exam GEN: Alert, oriented, NAD HEENT: Normal conjunctiva, sclera icterus CV: Regular rate and rhythm, no edema Pulm: Nonlabored respirations on room air ABD: Soft, mod tenderness diffusely on palpation. minimal when using stethoscope Integumentary: No rashes Neuro: Normal speech, normal affect Problem List GI Bleed s/p EGD/colonscopy with biopsies liver cirrhosis s/p TIPS Colitis Hypokalemia, hypomagnesemia CAM on CKD3a chronic anemia, acute blood loss (minimal) h/o crohn's disease Depression/anxiety Peripheral neuropathy Insomnia Patient's hemoglobin is stable, bleed likely secondary to biopsies, no significant bleed Blood likely contributing to diarrhea CT with nonspecific colitis, continue Cipro and Flagyl Cipro listed as new allergy, review of EMR reveals patient has received ciprofloxacin multiple times. Reviewed with patient, she states she was unsure, sent an antibiotic with a CT. Bed definitely has not had any allergies to medications since her hospitalizations here. GI consulted Pain medication as needed Antiemetics as needed Continue home depression/anxiety/neuropathy medications Electrolyte abnormality secondary to GI loss Code: Full Dispo: Home, 1-2 days Time Spent Managing Pts Care (In Minutes): 35
[2022-01-22] MEDS: NA CHLORIDE 0.9% 1,000 ML IV SCH ×2 (07:15→21:28)
[2022-01-22 07:24] LABS: Hematocrit 36.5 % (36.0-45.0); Lymphocytes % 9.1 % (15.3-44.8); MPV 8.2 fL (7.6-11.3); RBC Red Blood Cell Count 4.08 M/uL (3.86-4.86)
[2022-01-22 07:30] LABS: Albumin 2.5 g/dL (3.4-5.0); Bilirubin Direct 1.7 mg/dL (0-0.2); Bilirubin Total 4.5 mg/dL (0.2-1.0); Magnesium 2.2 mg/dL (1.8-2.4); Potassium 3.2 mmol/L (3.5-5.1); Protein, Total 6.2 g/dL (6.4-8.2)
[2022-01-22] MEDS: Rifaximin 550 MG Tab PO SCH (09:00)
[2022-01-22] MEDS: FLUOXETINE 20 MG CAP PO SCH (09:52)
[2022-01-22] MEDS: GABAPENTIN 300 MG CAP PO SCH ×2 (09:52→20:29)
[2022-01-22] MEDS: SPIRONOLACTONE 25 MG TABLET PO SCH (09:52)
[2022-01-22] MEDS: ARIPiprazole 5 MG TAB PO SCH (09:52)
[2022-01-22 10:17] LABS: Anisocytosis 1+; Blood Morphology Comment NOT SEEN (NOT SEEN); Hypochromasia 1+; Platelet Estimate DECR; Polychromasia 1+; White Blood Cell Scan OK (OK)
[2022-01-22] MEDS ORDERED: POTASSIUM CL SA 10 MEQ TAB PO ONE (10:45)
[2022-01-22] MEDS ORDERED: MORPHINE 2 MG/ML SYR IV PRN (13:54)
[2022-01-22] MEDS: MORPHINE 4 MG/ML SYR IV PRN ×2 (16:25→20:29)
[2022-01-22] MEDS: CIPROFLOXACIN 400mg IV 400 MG/200 ML BAG IV SCH (20:27)
[2022-01-22] MEDS: ENSURE CLEAR 200 ML CAN PO SCH (20:30)
[2022-01-22] MEDS: RAMELTEON 8 MG PO SCH (21:26)
[2022-01-22] MEDS: RIFAXIMIN 550 MG PO SCH (21:26)
[2022-01-23] MEDS: MORPHINE 4 MG/ML SYR IV PRN ×6 (00:45→23:26)
[2022-01-23] MEDS: METRONIDAZOLE 500mg IVPB 500 MG/100 ML BAG IV SCH ×3 (00:45→16:23)
[2022-01-23] MEDS: KCL 20 MEQ/100 mL IVPB 20 MEQ/100 ML BAG IV SCH (00:48)
[2022-01-23 05:43] LABS: Hematocrit 26.5 % (36.0-45.0); Lymphocytes % 11.7 % (15.3-44.8); MPV 7.7 fL (7.6-11.3); RBC Red Blood Cell Count 2.92 M/uL (3.86-4.86)
[2022-01-23 06:35] LABS: Albumin 2.2 g/dL (3.4-5.0); Bilirubin Direct 1.5 mg/dL (0-0.2); Bilirubin Total 3.2 mg/dL (0.2-1.0); Magnesium 1.9 mg/dL (1.8-2.4); Potassium 3.2 mmol/L (3.5-5.1); Protein, Total 5.4 g/dL (6.4-8.2)
--- NOTE | 2022-01-23 08:31 | RAD REPORT ---
EXAM DESCRIPTION: US - Liver Only - 01/23/2022 5:51 am CLINICAL HISTORY: liver/gallbladder Abdominal pain COMPARISON: No comparisons FINDINGS: There is a coarsened liver echotexture noted with probable fatty liver.No focal liver lesi on or intrahepatic biliary dilatation.No evidence of portal vein thrombosis. Gallbladder appears absent. Common duct is normal measuring 2 mm. Spleen is mildly enlarged measuring 13 cm. IMPRESSION: Coarsened liver echotexture suggests underlying fatty infiltration or chronic inflammati on. Mildly prominent splenic size.
[2022-01-23] MEDS: nadoloL 40 MG TAB PO SCH (09:00)
[2022-01-23] MEDS: ENSURE CLEAR 200 ML CAN PO SCH ×2 (09:00→19:57)
[2022-01-23] MEDS: RIFAXIMIN 550 MG PO SCH ×2 (09:00→19:55)
[2022-01-23] MEDS ORDERED: POTASSIUM 25 MEQ EFFERV TAB PO ONE (09:00)
[2022-01-23] MEDS: NA CHLORIDE 0.9% 1,000 ML IV SCH ×2 (09:22→22:20)
[2022-01-23] MEDS: CIPROFLOXACIN 400mg IV 400 MG/200 ML BAG IV SCH ×2 (09:22→19:57)
[2022-01-23] MEDS: GABAPENTIN 300 MG CAP PO SCH ×2 (09:23→19:54)
[2022-01-23] MEDS: SPIRONOLACTONE 25 MG TABLET PO SCH (09:23)
[2022-01-23] MEDS: FLUOXETINE 20 MG CAP PO SCH (09:25)
[2022-01-23] MEDS: ARIPiprazole 5 MG TAB PO SCH (09:25)
[2022-01-23] MEDS: HYDROCORTISONE ACETATE 25MG SUPP PR SCH (09:25)
[2022-01-23] MEDS: ONDANSETRON 4 MG/2 ML VIAL IV PRN ×2 (09:40→18:23)
--- NOTE | 2022-01-23 15:18 | P.PN ---
Subjective Date of Service: 01/23/22 Chief Complaint: Bloody stools Patient denies any melena or hematochezia today. She also denies any abdominal pain. She requested to go home. Physical Examination - Vital Signs Temperature: 97.9 F Blood Pressure: 111/53 Pulse: 85 Respirations: 18 Pulse Ox (%): 96 Assessment And Plan - Plan Physical exam GEN: Alert, oriented, NAD HEENT: Normal conjunctiva, sclera icterus CV: Regular rate and rhythm, no edema Pulm: Nonlabored respirations on room air. Clear to auscultation bilaterally ABD: Soft, nontender, normal bowel sounds. Integumentary: No rashes Neuro: Normal speech, normal affect Problem List GI Bleed s/p EGD/colonscopy with biopsies liver cirrhosis s/p TIPS Colitis Hypokalemia, hypomagnesemia CAM on CKD3a Acute blood loss anemia h/o crohn's disease Depression/anxiety Peripheral neuropathy Insomnia Plan: Patient with a history of esophageal varices status post TIPS. Differential diagnosis for rectal bleed: Bleeding hemorrhoid or varices versus bleeding from biopsy site. Hemoglobin dropped slightly CT with nonspecific colitis, continue Cipro and Flagyl Cipro listed as new allergy, review of EMR reveals patient has received ciprofloxacin multiple times. Reviewed with patient, she states she was unsure, sent an GI consulted. Patient wants to go home. I spoke to Dr. Chu who stated he will see her today Pain medication as needed Antiemetics as needed Continue home depression/anxiety/neuropathy medications Monitor and correct electrolyte as needed. Code: Full Physician Review: Patient Assessed, Agree with Above Assessment and Plan
--- NOTE | 2022-01-23 15:25 | RAD REPORT ---
EXAM DESCRIPTION: Bere Cárdenas And Abelino (2 Views)01/23/2022 2:20 pm CLINICAL HISTORY: Preop COMPARISON: October 2021 FINDINGS: The lungs appear clear of acute infiltrate. The heart is normal size IMPRESSION: No acute abnormalities displayed
[2022-01-23 20:31] VITALS: O2SAT 98
[2022-01-23] MEDS: RAMELTEON 8 MG PO SCH (22:47)
[2022-01-24] MEDS: METRONIDAZOLE 500mg IVPB 500 MG/100 ML BAG IV SCH (00:48)
[2022-01-24] MEDS: MORPHINE 4 MG/ML SYR IV PRN (04:12)
[2022-01-24 05:57] VITALS: BP 111/54; TEMP 97.3
[2022-01-24 06:05] LABS: Absolute Lymphocytes (CBC) 1.1 K/uL (0.7-4.9); Hematocrit 27.4 % (36.0-45.0); Lymphocytes % 13.5 % (15.3-44.8); MPV 7.2 fL (7.6-11.3); RBC Red Blood Cell Count 2.98 M/uL (3.86-4.86)
[2022-01-24 06:19] LABS: Potassium 3.3 mmol/L (3.5-5.1)
--- NOTE | 2022-01-24 08:42 | P.DS ---
Admission Date: 01/21/22 Discharge Date: 01/24/22 Disposition: ROUTINE DISCHARGE Discharge Condition: FAIR Reason for Admission: Bloody stools Brief History of Present Illness: Patient is a 61-year-old female with a past medical history significant for cirrhosis, CKD, depression, Crohns disease who presented with complaint of bloody stools that has been ongoing for 2 days. Patient reported that she had an EGD and colonoscopy with biopsies with her spindle carver 4 days prior. Patient describes blood as dark maroon in color and also indicated the presence of large blood clots whenever she had a bowel movement. Patient also reported that she has been having episodes of diarrhea as well. Patient reported associated signs and symptoms of nausea, vomiting, dizziness, chills, headache and generalized abdominal pain. Patient rated pain as 10/10 and described pain as stabbing in quality. She was seen in the ED the day before and was discharged home. Patient indicated that rectal bleeding became worse when she got home hence she decided to present to the hospital again for medical evaluation. Patient also indicated that she has not been able to keep any p.o. intake down. She was hypokalemic and hemoglobin of 10. Patient hospitalized for further management. Hospital Course: GI Bleed s/p EGD/colonscopy with biopsies liver cirrhosis s/p TIPS Colitis Hypokalemia, hypomagnesemia CAM on CKD3a Acute blood loss anemia h/o crohn's disease Depression/anxiety Peripheral neuropathy Insomnia Patient with a history of esophageal varices status post TIPS. She was admitted to the medical floor Differential diagnosis for rectal bleed: Bleeding hemorrhoid or varices versus bleeding from biopsy site. She was treated with supportive measures Hemoglobin dropped slightly CT with nonspecific colitis, saw she was started on IV Flagyl and ciprofloxacin to cover infectious colitis. Patient tolerated antibiotics. Seen by GI -Dr. Rosas, liver ultrasound was done which showed fatty liver. Dr. Rosas is planning to initiate immunosuppressive therapy for Crohn's disease. He also recommended PillCam as outpatient patient wants to go home. Patient had no more bleeding episodes during the hospital stay. Her abdominal pain also resolved. She is deemed stable for discharge and she is discharged to follow with Dr. Rosas for further work-up. Vital Signs/Physical Exam: Temp Pulse Resp BP Pulse Ox 97.3 F 84 18 111/54 L 95 01/24/22 04:00 01/24/22 04:00 01/24/22 04:42 01/24/22 04:00 01/24/22 04:42 General: Alert, In no apparent distress, Oriented x3 HEENT: Mucous membr. moist/pink Neck: Supple, JVD not distended Respiratory: Clear to auscultation bilaterally, Normal air movement Cardiovascular: No edema, Regular rate/rhythm, Normal S1 S2 Gastrointestinal: Normal bowel sounds, Soft and benign, Non-distended, No tenderness Musculoskeletal: No swelling Integumentary: No rashes, No erythema Neurological: Normal strength at 5/5 x4 extr, Cranial nerves 3-12 intact Laboratory Data at Discharge: WBC 8.4 K/uL (4.3-10.9) 01/24/22 05:51 Hgb 9.2 g/dL (12.0-15.0) L 01/24/22 05:51 Hct 27.4 % (36.0-45.0) L 01/24/22 05:51 Plt Count 76 K/uL (152-406) L 01/24/22 05:51 Sodium 140 mmol/L (136-145) 01/24/22 05:51 Potassium 3.3 mmol/L (3.5-5.1) L 01/24/22 05:51 BUN 7 mg/dL (7-18) 01/24/22 05:51 Creatinine 0.93 mg/dL (0.55-1.3) 01/24/22 05:51 Glucose 86 mg/dL (74-106) 01/24/22 05:51 Magnesium 1.9 mg/dL (1.8-2.4) 01/23/22 05:20 Total Bilirubin 3.2 mg/dL (0.2-1.0) H 01/23/22 05:20 AST 22 U/L (15-37) 01/23/22 05:20 ALT 12 U/L (12-78) 01/23/22 05:20 Alkaline Phosphatase 63 U/L (45-117) 01/23/22 05:20 Home Medications: Ondansetron [Zofran (Odt)*] 4 mg PO DAILY PRN 10/09/21 Rifaximin [Xifaxan] 550 mg PO BID 10/09/21 Spironolactone [Aldactone*] 50 mg PO DAILY 10/09/21 Ubrogepant [Ubrelvy] 100 mg PO SEECOM PRN 10/09/21 Gabapentin 300 mg PO BID 12/04/21 Ramelteon 8 mg PO BEDTIME 12/05/21 traMADol HCL [Ultram*] 50 mg PO Q6H PRN #10 tab 12/30/21 ARIPiprazole [Abilify*] 5 mg PO BEDTIME 01/17/22 Diphenoxylate HCl/Atropine [Diphenoxylate-Atrop 2.5-0.025] 1 each PO DAILY 01/17/22 Fluoxetine HCl [Prozac*] 20 mg PO DAILY 01/17/22 Furosemide [Lasix*] 20 mg PO BID 01/17/22 Ciprofloxacin HCl 500 mg PO BID #20 tablet 01/24/22 Hydrocort Acetate Suppos [Anucort-Hc Suppository*] 25 mg [place] DAILY #30 supp 0 01/24/22 metroNIDAZOLE [Flagyl] 500 mg PO Q8H #30 tablet 01/24/22 nadoloL [Corgard*] 20 mg PO DAILY #30 tab 01/24/22 New Medications: Hydrocort Acetate Suppos [Anucort-Hc Suppository*] 25 mg [place] DAILY #30 supp Ciprofloxacin HCl 500 mg PO BID #20 tablet nadoloL [Corgard*] 20 mg PO DAILY #30 tab metroNIDAZOLE [Flagyl] 500 mg PO Q8H #30 tablet Diet: AHA Activity: Ad amrita Followup: Tom Rosas MD [ASSOCIATE-ACTIVE - CAN ADMIT] - 1 Week (call to schedule an appointment ) Unknown,U [Primary Care Provider] - Time spent managing pt's care (in minutes): 36
[2022-01-24] MEDS: nadoloL 40 MG TAB PO SCH (09:00)
[2022-01-24] MEDS: SPIRONOLACTONE 25 MG TABLET PO SCH (09:00)
[2022-01-24] MEDS: GABAPENTIN 300 MG CAP PO SCH (09:00)
[2022-01-24] MEDS: FLUOXETINE 20 MG CAP PO SCH (09:00)
[2022-01-24] MEDS: ARIPiprazole 5 MG TAB PO SCH (09:00)
[2022-01-24] MEDS ORDERED: METRONIDAZOLE 500mg IVPB 500 MG/100 ML BAG IV SCH (09:00)
[2022-01-24] MEDS: CIPROFLOXACIN 400mg IV 400 MG/200 ML BAG IV SCH (09:00)
[2022-01-24] MEDS: RIFAXIMIN 550 MG PO SCH (09:00)
[2022-01-24] MEDS: HYDROCORTISONE ACETATE 25MG SUPP PR SCH (09:00)
[2022-01-24] MEDS: ENSURE CLEAR 200 ML CAN PO SCH (09:00)
[2022-01-24] MEDS ORDERED: metroNIDAZOLE 500 MG TABLET PO SCH (09:30)
[2022-01-24] MEDS: HYDROCODONE/APAP 5/325 MG TAB PO PRN (09:45)
[2022-01-24] MEDS ORDERED: CIPROFLOXACIN HCL 500 MG TAB PO SCH (10:00)
--- NOTE | 2022-01-24 18:15 | P.PN ---
Subjective Date of Service: 01/24/22 Chief Complaint: Bloody stools, N/V, diarrhea, h/o possible Crohn's disease Subjective: Improving (Feels better and wants to go home. Tolerating diet well. Pillcam to be done as outpatient and anticipate start of biologic therapy for IBD soon with diagnosis confirmation.) Review of Systems General: Weakness, Malaise (Improved. ) Physical Examination - Vital Signs Temperature: 97.3 F Blood Pressure: 111/54 Pulse: 84 Respirations: 18 Pulse Ox (%): 95 - Physical Exam General: Alert, In no apparent distress, Oriented x3, Cooperative HEENT: Atraumatic, Normocephalic, PERRLA, EOMI Neck: Supple Respiratory: Normal air movement Cardiovascular: Normal pulses Gastrointestinal: No rebound, No guarding, Tenderness (mild) Neurological: Normal gait, Normal speech, Normal strength at 5/5 x4 extr Assessment And Plan - Current Problems (Diagnosis) (1) Change in bowel habits Status: Acute (2) Diarrhea Status: Acute (3) Nausea & vomiting Status: Acute (4) Generalized abdominal pain Status: Acute (5) Crohn disease Onset Date: 10/03/17 Status: Chronic Qualifiers: Gastrointestinal tract location: small intestine Digestive disease complication type: without complication Qualified Code(s): K50.00 - Crohn's disease of small intestine without complications - Plan REC: 1) agree with discharge 2) pillcam as outpatient 3) anticipate biologic therapy with IBD diagnosis confirmation Physician Review: Patient Assessed, Agree with Above Assessment and Plan
== END 2022-01-24 10:00 | disposition home health service (06) | DRG 919 ==
LOC: ER 13:25 → ERHOLD 16:35 → 2ND 17:35
PROVIDERS: ADMIT Hospitalist; ATTEND Hospitalist
DX: K91.841 Postprocedural hemorrhage of a digestive system organ or structure following other procedure (principal); E43 Unspecified severe protein-calorie malnutrition; D62 Acute posthemorrhagic anemia; K50.90 Crohn's disease, unspecified, without complications; N17.9 Acute kidney failure, unspecified; Y84.8 Other medical procedures as the cause of abnormal reaction of the patient, or of later complication, without mention of misadventure at the time of the procedure; Y73.3 Surgical instruments, materials and gastroenterology and urology devices (including sutures) associated with adverse incidents; K74.60 Unspecified cirrhosis of liver; K52.9 Noninfective gastroenteritis and colitis, unspecified; E87.6 Hypokalemia; E83.42 Hypomagnesemia; F41.8 Other specified anxiety disorders; Z68.31 Body mass index [BMI] 31.0-31.9, adult; G62.9 Polyneuropathy, unspecified; G47.00 Insomnia, unspecified; N18.31 Chronic kidney disease, stage 3a; Z88.0 Allergy status to penicillin
CPT/HCPCS: 36415; 71046; 74176; 76705; 80048; 80053; 80076; 81003; 81015; 81025; 82248; 82274; 83631; 83690; 83735; 84132; 85014; 85018; 85025; 86480; 86704; 86705; 86706; 86709; 86803; 87045; 87046; 87086; 87088; 87177; 87209; 87324; 87340; 87425; 87449; 89055; 96361; 96365; 96366; 96375; 99284; C9113; J0744; J2270; J2405; J2765; J3475; J3480; J3490; J7030; U0003

== ENCOUNTER 2022-02-11 19:31 | Emergency (ER) | payer OTHER ==
[2022-02-11 21:21] LABS: Protime INR 1.2
[2022-02-11] MEDS ORDERED: FENTANYL CITR 100 MCG/2 ML ONE ×2 (21:42→23:44)
[2022-02-11] MEDS ORDERED: PANTOPRAZOLE 40 MG INJ ONE (21:42)
--- NOTE | 2022-02-11 21:58 | RAD REPORT ---
EXAM DESCRIPTION: RAD - Chest Single View - 02/11/2022 8:59 pm CLINICAL HISTORY: DYSPNEA TECHNIQUE: AP portable chest image was obtained 02/11/2022 8:59 pm . FINDINGS: No focal mass or consolidation. Interstitial pattern accentuated by shallow inspiration. M ild edema or infiltrate could be masked. Heart and vasculature are normal. No measurable pleural effusion and no pneumothorax. No acute bony abnormality seen. No acute aortic findings suspected. IMPRESSION: No acute focal lung parenchymal process. Interstitial pattern could mask early edema or infiltrate.
[2022-02-11 22:55] LABS: Albumin 2.4 g/dL (3.4-5.0); Bilirubin Direct 1.1 mg/dL (0-0.2); Potassium 2.9 mmol/L (3.5-5.1); Protein, Total 5.8 g/dL (6.4-8.2); Troponin High Sensitivity 6.9 pg/mL (<58.9)
[2022-02-11 22:56] LABS: Magnesium 1.3 mg/dL (1.8-2.4)
[2022-02-11 22:59] LABS: Absolute Lymphocytes (CBC) 2.2 K/uL (0.7-4.9); Hematocrit 28.2 % (36.0-45.0); Lymphocytes % 39.5 % (15.3-44.8); MCV 91.8 fL (80-100); MPV 7.8 fL (7.6-11.3); RBC Red Blood Cell Count 3.07 M/uL (3.86-4.86)
--- NOTE | 2022-02-11 23:34 | EDPHYS ---
Physician Documentation [facility] Name: Bella Barron Age: 61 yrs Sex: Female : 1960 Arrival Date: 02/11/2022 Time: 19:35 Bed 6 Private MD: SARAH Physician James Rossi HPI: 02/11 21:18 This 61 yrs old Female presents to ER via Wheelchair with complaints of david Internal Bleeding, Cramps. 21:18 The patient presents to the emergency department with rectal bleeding, bright red blood david with bowel movement. Onset: The symptoms/episode began/occurred 3 day(s) ago. Abdominal pain: none is appreciated. Modifying factors: The symptoms are alleviated by nothing, the symptoms are aggravated by nothing. Associated signs and symptoms: The patient has no apparent associated signs or symptoms. Severity of symptoms: At their worst the symptoms were mild in the emergency department the symptoms are unchanged. The patient has experienced similar episodes in the past, several times. Historical: - Allergies: 20:04 Ciprofloxacin; lp1 20:04 Iodine; lp1 20:04 Phenergan; lp1 20:04 Rocephin; lp1 - Home Meds: 20:04 Aldactone 25 mg Oral tab once daily [Active]; Allopurinol Oral [Active]; aripiprazole 5 lp1 mg Oral tab 1 tab once daily [Active]; diphenoxylate-atropine 2.5-0.025 mg/5 mL Oral liqd once daily [Active]; fluoxetine 20 mg Oral cap 1 cap once daily [Active]; furosemide 20 mg Oral tab 1 tab 2 times per day [Active]; gabapentin 300 mg Oral cap 1 cap twice a day [Active]; ramelteon 8 mg Oral tab evenings for Sleep-Onset Insomnia [Active]; Ubrelvy 100 mg Oral tab 1 tab daily for Migraine [Active]; Ultram 50 mg Oral tab PRN for Pain [Active]; Xifaxan 550 mg Oral tab 1 tab 2 times per day [Active]; Zofran 4 mg Oral tab 1 tab PRN [Active]; 20:00 aripiprazole 10 mg oral tab 1 tab once daily [Active]; midodrine 5 mg oral tab as6 [Active]; furosemide 20 mg Oral tab 1 tab 2 times per day [Active]; spironolactone 50 mg Oral tab [Active]; gabapentin 300 mg oral tab [Active]; rifaximin 550 mg oral tab [Active]; ramelteon 8 mg oral tab [Active]; lorazepam 0.5 mg Oral tab [Active]; - PMHx: 20:04 Cirrhosis; Colitis; Crohn's; Depression; Liver disease; needs kidney and liver lp1 transplant; - PSHx: 20:04 bowel resection; Cholecystectomy; TIPS procedure; Total abdominal hysterectomy; lp1 - Immunization history:: Adult Immunizations up to date. - Social history:: Smoking status: Patient denies any tobacco usage or history of. - Family history:: not pertinent. ROS: 21:18 Constitutional: Negative for fever, chills, and weight loss, Eyes: Negative for injury, david pain, redness, and discharge, ENT: Negative for injury, pain, and discharge, Neck: Negative for injury, pain, and swelling, Cardiovascular: Negative for chest pain, palpitations, and edema, Respiratory: Negative for shortness of breath, cough, wheezing, and pleuritic chest pain, Abdomen/GI: Negative for abdominal pain, nausea, vomiting, diarrhea, and constipation, Back: Negative for injury and pain, : Negative for injury, bleeding, discharge, and swelling, MS/Extremity: Negative for injury and deformity, Neuro: Negative for headache, weakness, numbness, tingling, and seizure, Psych: Negative for depression, anxiety, suicide ideation, homicidal ideation, and hallucinations, Allergy/Immunology: Negative for hives, rash, and allergies, Endocrine: Negative for neck swelling, polydipsia, polyuria, polyphagia, and marked weight changes, Hematologic/Lymphatic: Negative for swollen nodes, abnormal bleeding, and unusual bruising. 21:18 Skin: Positive for jaundice, pallor. Exam: 20:09 Abdomen/GI: Rectal exam: rectal tone normal, Stool: guaiac negative, hemorrhoid(s), are david not appreciated, mass, is not appreciated, swelling, is not appreciated, tenderness, is not appreciated, fecal impaction, is not appreciated, Liver: no appreciated palpable abnormalities, Hernia: not appreciated. 21:18 Constitutional: This is a well developed, well nourished patient who is awake, alert, david and in no acute distress. Head/Face: Normocephalic, atraumatic. Eyes: Pupils equal round and reactive to light, extra-ocular motions intact. Lids and lashes normal. Conjunctiva and sclera are non-icteric and not injected. Cornea within normal limits. Periorbital areas with no swelling, redness, or edema. ENT: Nares patent. No nasal discharge, no septal abnormalities noted. Tympanic membranes are normal and external auditory canals are clear. Oropharynx with no redness, swelling, or masses, exudates, or evidence of obstruction, uvula midline. Mucous membranes moist. Neck: Trachea midline, no thyromegaly or masses palpated, and no cervical lymphadenopathy. Supple, full range of motion without nuchal rigidity, or vertebral point tenderness. No Meningismus. Chest/axilla: Normal chest wall appearance and motion. Nontender with no deformity. No lesions are appreciated. Cardiovascular: Regular rate and rhythm with a normal S1 and S2. No gallops, murmurs, or rubs. Normal PMI, no JVD. No pulse deficits. Respiratory: Lungs have equal breath sounds bilaterally, clear to auscultation and percussion. No rales, rhonchi or wheezes noted. No increased work of breathing, no retractions or nasal flaring. Abdomen/GI: Soft, non-tender, with normal bowel sounds. No distension or tympany. No guarding or rebound. No evidence of tenderness throughout. Back: No spinal tenderness. No costovertebral tenderness. Full range of motion. Skin: Warm, dry with normal turgor. Normal color with no rashes, no lesions, and no evidence of cellulitis. MS/ Extremity: Pulses equal, no cyanosis. Neurovascular intact. Full, normal range of motion. Neuro: Awake and alert, GCS 15, oriented to person, place, time, and situation. Cranial nerves II-XII grossly intact. Motor strength 5/5 in all extremities. Sensory grossly intact. Cerebellar exam normal. Normal gait. Psych: Awake, alert, with orientation to person, place and time. Behavior, mood, and affect are within normal limits. 21:28 ECG was reviewed by the Attending Physician. [facility] Vital Signs: 20:02 BP 91 / 52; Pulse 86; Resp 18; Temp 97.8(TE); Pulse Ox 99% on R/A; Weight 81.65 kg (R); lp1 Height 4 ft. 11 in. (149.86 cm); Pain 8/10; 21:30 BP 98 / 43; Pulse 81; Resp 20 S; Pulse Ox 100% on R/A; as6 22:30 BP 94 / 49; Pulse 82; Resp 13 S; Pulse Ox 98% on R/A; as6 23:30 BP 106 / 59; Pulse 83; Resp 22 S; Pulse Ox 100% on R/A; as6 02/12 00:52 BP 109 / 65; Pulse 80; Resp 21 S; Pulse Ox 100% on R/A; as6 02/11 20:02 Body Mass Index 36.36 (81.65 kg, 149.86 cm) lp1 MDM: 02/11 19:45 Patient medically screened. [facility] 21:22 Differential diagnosis: gastritis, diverticulitis, varices. Data reviewed: vital signs, [facility] nurses notes, lab test result(s), EKG, radiologic studies, plain films. 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 Test interpretation: by ED physician or midlevel provider: ECG, plain radiologic studies. Counseling: I had a detailed discussion with the patient and/or guardian regarding: the historical points, exam findings, and any diagnostic results supporting the discharge/admit diagnosis, lab results, radiology results. 02/11 19:59 Order name: Basic Metabolic Panel; Complete Time: 22:57 [facility] 02/11 19:59 Order name: CBC with Diff [facility] 02/11 19:59 Order name: LFT's; Complete Time: 22:57 [facility] 02/11 19:59 Order name: Magnesium; Complete Time: 22:57 [facility] 02/11 19:59 Order name: NT PRO-BNP; Complete Time: 22:57 [facility] 02/11 19:59 Order name: PT-INR; Complete Time: 22:01 [facility] 02/11 19:59 Order name: Troponin HS; Complete Time: 22:57 [facility] 02/11 19:59 Order name: XRAY Chest (1 view); Complete Time: 22:01 [facility] 02/11 19:59 Order name: AMMONIA; Complete Time: 22:57 [facility] 02/11 19:59 Order name: SARS-COV-2 RT PCR (Document "Date of Onset" if Symptomatic); Complete Time: [facility] 21:16 02/11 20:06 Order name: Type And Screen; Complete Time: 22:01 [facility] 02/11 23:02 Order name: CBC Smear Scan EDMS 02/11 19:59 Order name: EKG; Complete Time: 20:00 [facility] 02/11 19:59 Order name: Cardiac monitoring; Complete Time: 19:59 [facility] 02/11 19:59 Order name: EKG - Nurse/Tech; Complete Time: 20:52 [facility] 02/11 19:59 Order name: IV Saline Lock; Complete Time: 21:09 [facility] 02/11 19:59 Order name: Labs collected and sent; Complete Time: 21:09 [facility] 02/11 19:59 Order name: O2 Per Protocol; Complete Time: 19:59 [facility] 02/11 19:59 Order name: O2 Sat Monitoring; Complete Time: 19:59 [facility] 02/11 19:59 Order name: IV Saline Lock - Large Bore; Complete Time: 21:09 [facility] 02/11 23:32 Order name: PO challenge: juice; Complete Time: 23:44 [facility] EC:28 Rate is 76 beats/min. Rhythm is regular. QRS [place] is Normal. [place] interval is normal. QRS david interval is normal. QT interval is prolonged at 501 msec. No Q waves. T waves are Normal. No ST changes noted. Clinical impression: NSR w/ Non-specific ST/T Changes and No evidence of ischemia. Interpreted by me. Reviewed by me. Administered Medications: 21:41 Drug: ProTONIX (pantoprazole) 40 mg Route: IVP; Site: right antecubital; 02/12 00:30 Follow up: Response: No adverse reaction 02/11 21:41 Drug: fentaNYL (PF) 25 mcg Route: IVP; Site: right antecubital; 02/12 00:30 Follow up: Response: No adverse reaction 02/11 23:44 Drug: Potassium Effervescent Tablet 50 mEq Route: PO; 02/12 00:31 Follow up: Response: No adverse reaction 02/11 23:44 Drug: Magnesium Sulfate 1 grams Route: IVPB; Infused Over: 1 hrs; Site: right as6 antecubital; 02/12 00:53 Follow up: Response: No adverse reaction; IV Status: Completed infusion; IV Intake: as6 100ml 02/11 23:44 Drug: fentaNYL (PF) 50 mcg Route: IVP; Site: right antecubital; 02/12 00:31 Follow up: Response: No adverse reaction as6 00:53 Drug: [place] (HYDROcodone-acetaminophen) 10 mg-325 mg 1 tabs Route: PO; as6 00:53 Follow up: Response: No adverse reaction as6 Disposition Summary: 02/11/22 23:33 Discharge Ordered Location: Home david Problem: new david Symptoms: have improved david Condition: Stable david Diagnosis - Anemia, unspecified david - Hypokalemia david - Hypomagnesemia david - Unspecified cirrhosis of liver david Followup: david - With: Private Physician - When: 2 - 3 days - Reason: Recheck today's complaints, Continuance of care, Re-evaluation by your physician Followup: david - With: Tom Rosas MD - When: 1 - 2 days - Reason: Recheck today's complaints, Continuance of care, Re-evaluation by your physician Discharge Instructions: - Discharge Summary Sheet david - Anemia david - Potassium Content of Foods david - Hypomagnesemia david - Hypokalemia david - Cirrhosis david Forms: - Medication Reconciliation Form david - Thank You Letter david - Antibiotic Education david - Prescription Opioid Use david Prescriptions: - Protonix 40 mg Oral Tablet - take 1 tablet by ORAL route once daily; 30 tablet; Refills: 0, Product david Selection Permitted - Lactulose 10 gram/15 mL Oral Solution - take 30 milliliters by ORAL route once daily; 300 milliliter; Refills: 0, david Product Selection Permitted Signatures: Dispatcher [employer] James Finnegan MD MD cha Pena, Laura, RN RN lp1 Toni Loza RN RN as6 Corrections: (The following items were deleted from the chart) 02/11 20:15 20:00 PMHx: Crohn's; as6 as6 20:15 20:00 PMHx: Liver disease; as6 as6 20:15 20:00 PMHx: Cirrhosis; as6 as6 20:15 20:00 PMHx: Depression; as6 as6 20:15 20:00 PMHx: Colitis; as6 as6 20:15 20:00 PMHx: needs kidney and liver transplant; as6 as6 20:15 20:00 PSHx: Cholecystectomy; as6 as6 20:15 20:00 PSHx: bowel resection; as6 as6 20:15 20:00 PSHx: TIPS procedure; as6 as6 20:15 20:00 PSHx: Total abdominal hysterectomy; as6 as6
--- NOTE | 2022-02-11 23:34 | ER ---
Nurse's Notes [facility] Name: Bella Barron Age: 61 yrs Sex: Female : 1960 Arrival Date: 02/11/2022 Time: 19:35 Bed 6 Private MD: Diagnosis: Anemia, unspecified;Hypokalemia;Hypomagnesemia;Unspecified cirrhosis of liver Presentation: 02/11 20:02 Chief complaint: Patient states: rectal bleeding x 1 day with LLQ abdominal cramping; lp1 Reports hx of rectal bleeding, cirrhosis. Coronavirus screen: At this time, the client does not indicate any symptoms associated with coronavirus-19. Ebola Screen: No symptoms or risks identified at this time. Initial Sepsis Screen: Does the patient meet any 2 criteria? No. Patient's initial sepsis screen is negative. Does the patient have a suspected source of infection? No. Patient's initial sepsis screen is negative. Risk Assessment: Do you want to hurt yourself or someone else? Patient reports no desire to harm self or others. Onset of symptoms was February 11, 2022. 20:02 Method Of Arrival: Wheelchair lp1 20:02 Acuity: OLEG 3 lp1 Historical: - Allergies: 20:04 Ciprofloxacin; lp1 20:04 Iodine; lp1 20:04 Phenergan; lp1 20:04 Rocephin; lp1 - Home Meds: 20:04 Aldactone 25 mg Oral tab once daily [Active]; Allopurinol Oral [Active]; aripiprazole 5 lp1 mg Oral tab 1 tab once daily [Active]; diphenoxylate-atropine 2.5-0.025 mg/5 mL Oral liqd once daily [Active]; fluoxetine 20 mg Oral cap 1 cap once daily [Active]; furosemide 20 mg Oral tab 1 tab 2 times per day [Active]; gabapentin 300 mg Oral cap 1 cap twice a day [Active]; ramelteon 8 mg Oral tab evenings for Sleep-Onset Insomnia [Active]; Ubrelvy 100 mg Oral tab 1 tab daily for Migraine [Active]; Ultram 50 mg Oral tab PRN for Pain [Active]; Xifaxan 550 mg Oral tab 1 tab 2 times per day [Active]; Zofran 4 mg Oral tab 1 tab PRN [Active]; 20:00 aripiprazole 10 mg oral tab 1 tab once daily [Active]; midodrine 5 mg oral tab as6 [Active]; furosemide 20 mg Oral tab 1 tab 2 times per day [Active]; spironolactone 50 mg Oral tab [Active]; gabapentin 300 mg oral tab [Active]; rifaximin 550 mg oral tab [Active]; ramelteon 8 mg oral tab [Active]; lorazepam 0.5 mg Oral tab [Active]; - PMHx: 20:04 Cirrhosis; Colitis; Crohn's; Depression; Liver disease; needs kidney and liver lp1 transplant; - PSHx: 20:04 bowel resection; Cholecystectomy; TIPS procedure; Total abdominal hysterectomy; lp1 - Immunization history:: Adult Immunizations up to date. - Social history:: Smoking status: Patient denies any tobacco usage or history of. - Family history:: not pertinent. Screenin:46 Abuse screen: Denies threats or abuse. Denies injuries from another. Nutritional as6 screening: No deficits noted. Tuberculosis screening: No symptoms or risk factors identified. Fall Risk None identified. Assessment: 20:30 General: Appears in no apparent distress. Behavior is calm, cooperative. Pain: as6 Complains of pain in abdomen. Neuro: Level of Consciousness is awake, alert. Respiratory: Respiratory effort is even, unlabored. GI: Reports lower abdominal pain. Vital Signs: 20:02 BP 91 / 52; Pulse 86; Resp 18; Temp 97.8(TE); Pulse Ox 99% on R/A; Weight 81.65 kg (R); lp1 Height 4 ft. 11 in. (149.86 cm); Pain 8/10; 21:30 BP 98 / 43; Pulse 81; Resp 20 S; Pulse Ox 100% on R/A; as6 22:30 BP 94 / 49; Pulse 82; Resp 13 S; Pulse Ox 98% on R/A; as6 23:30 BP 106 / 59; Pulse 83; Resp 22 S; Pulse Ox 100% on R/A; as6 0704 00:52 BP 109 / 65; Pulse 80; Resp 21 S; Pulse Ox 100% on R/A; as6 02/11 20:02 Body Mass Index 36.36 (81.65 kg, 149.86 cm) lp1 ED Course: 02/11 19:35 Patient arrived in ED. ag3 19:44 Toni Loza, RN is Primary Nurse. as6 19:45 James Rossi MD is Attending Physician. david 20:02 Arm band placed on. lp1 20:04 Triage completed. lp1 20:30 Placed in gown. Bed in low position. Call light in reach. Side rails up X2. Client as6 placed on continuous cardiac and pulse oximetry monitoring. NIBP monitoring applied. 21:01 XRAY Chest (1 view) In Process Unspecified. EDMS 21:09 Inserted saline lock: 22 gauge in right antecubital area, using aseptic technique. as6 Blood collected. 22:20 Initial lab(s) drawn, by me, sent to lab. Inserted saline lock: 18 gauge in left jb4 antecubital area, using aseptic technique. Blood collected. 23:33 Tom Rosas MD is Referral Physician. [facility] 02/12 00:53 No provider procedures requiring assistance completed. as6 01:03 IV discontinued, intact, bleeding controlled, No redness/swelling at site. Pressure as6 dressing applied. Administered Medications: 02/11 21:41 Drug: ProTONIX (pantoprazole) 40 mg Route: IVP; Site: right antecubital; as6 02/12 00:30 Follow up: Response: No adverse reaction as6 02/11 21:41 Drug: fentaNYL (PF) 25 mcg Route: IVP; Site: right antecubital; as6 02/12 00:30 Follow up: Response: No adverse reaction as6 02/11 23:44 Drug: Potassium Effervescent Tablet 50 mEq Route: PO; as6 02/12 00:31 Follow up: Response: No adverse reaction 02/11 23:44 Drug: Magnesium Sulfate 1 grams Route: IVPB; Infused Over: 1 hrs; Site: right as6 antecubital; 02/12 00:53 Follow up: Response: No adverse reaction; IV Status: Completed infusion; IV Intake: as6 100ml 02/11 23:44 Drug: fentaNYL (PF) 50 mcg Route: IVP; Site: right antecubital; as6 02/12 00:31 Follow up: Response: No adverse reaction as6 00:53 Drug: [place] (HYDROcodone-acetaminophen) 10 mg-325 mg 1 tabs Route: PO; as 00:53 Follow up: Response: No adverse reaction as6 Medication: 02/11 23:47 VIS not applicable for this client. as6 Intake: 02/12 00:53 IV: 100ml; Total: 100ml. as6 Outcome: 02/11 23:33 Discharge ordered by . david 02/12 00:53 Condition: stable as6 01:03 Discharged to home ambulatory, with significant other. as6 01:03 Discharge instructions given to patient, Instructed on discharge instructions, follow up and referral plans. medication usage, Demonstrated understanding of instructions, follow-up care, medications, Prescriptions given X 2. 01:03 Patient left the ED. as6 Signatures: Dispatcher [employer] EDMS James Rossi MD MD cha Pena, Laura, RN RN lp1 Leon Lowery, RN RN [id number] Franci Mercado3 Toni Loza RN RN as6 Corrections: (The following items were deleted from the chart) 02/11 20:15 20:00 PMHx: Crohn's; as6 as6 20:15 20:00 PMHx: Liver disease; as6 as6 20:15 20:00 PMHx: Cirrhosis; as6 as6 20:15 20:00 PMHx: Depression; as6 as6 20:15 20:00 PMHx: Colitis; as6 as6 20:15 20:00 PMHx: needs kidney and liver transplant; as6 as6 20:15 20:00 PSHx: Cholecystectomy; as6 as6 20:15 20:00 PSHx: bowel resection; as6 as6 20:15 20:00 PSHx: TIPS procedure; as6 as6 20:15 20:00 PSHx: Total abdominal hysterectomy; as6 as6
[2022-02-11 23:35] LABS: Anisocytosis 2+; Blood Morphology Comment NOTED (NOT SEEN); Ovalocytes 2+; Platelet Estimate DECR; White Blood Cell Scan OK (OK)
[2022-02-11] MEDS ORDERED: POTASSIUM 25 MEQ EFFERV TAB ONE (23:43)
[2022-02-11] MEDS ORDERED: MAGNESIUM SULFATE 1 gm IVPB 1 GM/100 ML BAG IV ONE (23:44)
[2022-02-12] MEDS ORDERED: HYDROCODONE/APAP 10/325 TAB ONE (00:51)
[2022-02-12 01:15] VITALS: TEMP 97.8
[2022-02-12 01:19] VITALS: O2SAT 100
[2022-02-12 01:21] VITALS: BP 109/65
--- NOTE | 2022-02-13 08:00 | EKG ---
Test Date: 2022-02-11 Test Time: 20:40:46 Supervisor [employer]: SCOTT MEASUREMENT RESULTS: Intervals: Rate: 76 OK: 172 QRSD: 90 QT: 446 QTc: 501 [place]: P: 56 OK: 172 QRS: 23 T: 60 INTERPRETIVE STATEMENTS: Normal sinus rhythm Cannot rule out Anterior infarct, age undetermined Prolonged QT Abnormal ECG Compared to ECG 12/25/2021 22:08:05 Myocardial infarct finding now present Electronically Signed On 02-13-22 07:55:43 CDT by Nico Caldwell
== END 2022-02-12 01:03 | disposition home or self-care (01) ==
LOC: ER 19:31
DX: D64.9 Anemia, unspecified (principal); E87.6 Hypokalemia; E83.42 Hypomagnesemia; K74.60 Unspecified cirrhosis of liver; K62.5 Hemorrhage of anus and rectum; R10.32 Left lower quadrant pain; K52.9 Noninfective gastroenteritis and colitis, unspecified; K50.90 Crohn's disease, unspecified, without complications; K76.9 Liver disease, unspecified; Z88.1 Allergy status to other antibiotic agents; Z91.048 Other nonmedicinal substance allergy status
CPT/HCPCS: 93005; 85025; 80048; 36415; 82140; 86900; 83735; 86850; 85610; 86901; 80076; 84484; 83880; 71045; U0003; C9113; J3010 ×2; J3475; 96365; 96375; 99284

== ENCOUNTER 2022-03-14 01:47 | Inpatient (IN) | payer OTHER ==
--- OUTSIDE RECORDS SUMMARY | 2022-03-14 01:58 | XMS REPORT | Continuity of Care Document ---
:1960 Author Organization [facility] t Address [address] [place] [address] [address]. [address] [place] [address] Care Team Providers Name Role Phone CALOS GARCIA Primary Care Physician Unavailable Fernando Man Attending Clinician Unavailable PIERCE MARSHALL Attending Clinician Unavailable MD AYDE WESTFALL Attending Clinician Unavailable SALLY AGUDELO Attending Clinician Unavailable Doctor Unassigned, [place] Attending Clinician Unavailable Victoriano Membreno Attending Clinician Unavailable Mercy Tamez MD Attending Clinician CALOS GARCIA Attending Clinician Unavailable Luisana Thompson PA-C Attending Clinician BAYLEE GIRARD Attending Clinician Unavailable KENDY HALL Attending Clinician Unavailable LACEY PAN Attending Clinician Unavailable Lacey Pan MD Attending Clinician Jn [place] RN Attending Clinician Unavailable MOISES BRO Attending Clinician Unavailable JENNIFER GHOSH Attending Clinician Unavailable Sawyer Huitron MD Attending Clinician Kirit Jaimes LCSW Attending Clinician Unavailable Sergo Lee RN Attending Clinician Unavailable MD JENNIFER GHOSH Attending Clinician Unavailable MD MOISES BRO Attending Clinician Unavail able Erika Brown MA Attending Clinician Unavailable DO ROMERO LIMON Attending Clinician Unavailable ROMERO LIMON Attending Clinician Unavailable John Murillo, Kaleb Turner Attending Clinician Unavailable Eusebia Williamson MA Attending Clinician Unavailable HERIBERTO YORK Attending Clinician Unavailable MD BAYLEE GIRARD Attending Clinician Unavail able Randal OLMOS, Bia Attending Clinician Unavailable Wild Kovacs DO Attending Clinician [phone] Cliff Levy MD Attending Clinician MD CALOS GARCIA Attending Clinician Unavailable Freedom Gutierrez DO Attending Clinician Fabian Azevedo MD Attending Clinician Chris FRANKLIN, Robby Rios Attending Clinician [phone] MD HERIBERTO YORK Attending Clinician Unavailable MD PIERCE MARSHALL Attending Clinician Unavailable NOBLE ALMEIDA Attending Clinician Unavailable YIFAN CUMMINS Attending Clinician Unavailable MERCY RUEDA Attending Clinician Unavailable MD HERMILO CHAMPION Attending Clinician Unavailable JUNO DIAL Attending Clinician Unavailable DO MERCY RUEDA Attending Clinician Unavailable EBONY ROPER Attending Clinician Unavailable RA RHODES Attending Clinician Unavailable Ian Fuchs Attending Clinician YOVANY TAVERAS Attending Clinician Unavailable MATTI LOPEZ Admitting Clinician Unavailable MD AYDE WESTFALL Admitting Clinician Unavailable PIERCE MARSHALL Admitting Clinician Unavailable NIA LAWRENCE Admitting Clinician Unavailable BAYLEE GIRARD Admitting Clinician Unavailable MD BAYLEE GIRARD Admitting Clinician Unavail able MD MOISES BRO Admitting Clinician Unavail able DO ROMERO LIMON Admitting Clinician Unavailable JENNIFER GHOSH Admitting Clinician Unavailable MD JENNIFER GHOSH Admitting Clinician Unavailable HERIBERTO YORK Admitting Clinician Unavailable GALATI, MD CALOS S. Admitting Clinician Unavailable MD HERIBERTO YORK Admitting Clinician Unavailable ANGIE MAN Admitting Clinician Unavailable MD ANGIE MAN Admitting Clinician Unavailable HERMILO CHAMPION Admitting Clinician Unavailable MD HERMILO CHAMPION Admitting Clinician Unavailable MERCY RUEDA Admitting Clinician Unavailable DO MERCY RUEDA Admitting Clinician Unavailable YOVANY TAVERAS Admitting Clinician Unavailable Payers Payer Name Policy Type Policy Number Effective Date Expiration Date S pedro MEDICAID OF [place] [id number] 2018 00:00:00 MEDICARE A B [id number] 2015 00:00:00 GENERIC MEDICAID [id number] 2021 HMO 00:00:00 Problems Condition Condition Condition Status Onset Resolution Last Treating Co mments Source Name Details Category Date Date Treatment Clinician Date Altered Altered Disease [facility] SBP SBP Disease Active [facility] (spontaneo (spontaneo [address] [facility] us us 00:00: Hospita bacterial bacterial 00 l peritoniti peritoniti s) s) Debility Debility Disease Active [facility] di 1 st 00:00: Hospita 00 l Mobility Mobility Disease Active [facility] di impaired impaired 1 00:00: Hospita 00 l Metabolic Metabolic Disease Active Met [facility] acidosis acidosis 1 00:00: Hospita 00 l Preoperati Preoperati Disease Active Overview : Methodi ve ve [address] clearance clearance 00:00: g of this H ospita 00 note l might be different from the original. Added automatic ally from request for surgery [id number] Chronic Chronic Disease Active 2020-08 [facility] kidney [...] Hospita 00 l Lymphedema Lymphedema Disease Active 2019-[address] 00:00: Hospita 00 l Tremor of Tremor of Disease Active Met hodi unknown unknown 8[address] st origin origin 00:00: Hospita 00 l [...] Disease Active M ethodi kidney kidney 05-08 injury) injury) 00:00: Hospita 00 l UTI UTI Disease Active [facility] (urinary (urinary 04-14 st tract tract 00:00: Hospita infection) infection) 00 l Altered Altered Disease Active [facility] mental mental 03-19 status, status, 00:00: Hospita unspecifie unspecifie 00 l d d Obesity Obesity Disease Active 2018- Univers (BMI (BMI 7-26 ity of 30-39.9) 30-39.9) 00:00: [place] [address] Medical Branch Hematochez Hematochez Disease Active U nivers ia ia 7-26 ity of 00:00: [place] [address] Medical Branch Abdominal Abdominal Disease Active Met [facility] pain pain 4 st 00:00: Hospita 00 l Weakness Weakness Disease Active Metho di 08-20 st 00:00: Hospita 00 l Chest pain Chest pain Disease Active 0 M ethodi on on 08-20 st breathing breathing 00:00: Hosp page 00 l Non-intrac Non-intrac Disease Active 2018-0 M ethodi table table 08-20 vomiting vomiting 00:00: Hospit a with with 00 l nausea nausea Gastroesop Gastroesop Disease Active M ethodi hageal hageal 1 st reflux reflux 00:00: Hospita disease disease 00 l CAM (acute CAM (acute Disease Active M ethodi kidney kidney 1-09 st injury) injury) 00:00: Hospita 00 l Disorder Disorder Disease Active Metho di of liver of liver 08-20 st 00:00: Hospita 00 l Liver Liver Disease Active 2017-08 [facility] cirrhosis cirrhosis 09-04 st 00:00: Hospita 00 l Acute Acute Disease Active [facility] hepatic hepatic 2- st encephalop encephalop 00:00: Ho spita athy athy 00 l Hematochez Hematochez Disease Active M ethodi ia ia 12-11 st 00:00: Hospita 00 l Melena Melena Disease Active Overview: Method i 12-[address] 00:00: g of this Hospita 00 note l might be different from the original. Added automatic ally from request for surgery [id number] Bipolar Bipolar Disease Active [facility]i disorder, disorder, 10-09 st unspecifie unspecifie 00:00: Ho spita d d 00 l Persistent Persistent Disease Active M ethodi depressive depressive 10-09 st disorder disorder 00:00: Hospit a 00 l Alcoholic Alcoholic Disease Active Met hodi cirrhosis cirrhosis 09-12 st of liver of liver 00:00: Hospit a 00 l 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 2 it y of athy athy 00:00: [place] [address] Medical Branch Hepatic Hepatic Disease Active 2015-08 [...] shoulder 4-25 ity of pain pain 00:00: [place] [address] Medical Branch 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 4-22 ity of 00:00: [place] 00 Medical Branch Anxiety Anxiety Disease Active Univers and and 12-01 ity of depression [place] [facility] [place] Rectal Rectal Disease Active 2014-08 Univers bleed bleed 09-14 ity of 00:00: [place] 00 Medical Branch Crohn Crohn Disease Active [facility] disease disease [facility] Allergies, Adverse Reactions, Alerts Allergy Allergy Status Severity Reaction(s) Onset Inactive Treating Comm ents Source Name Type Date Date Clinician FISH Allergy Active [facility] CONTAINI 2 NG 00:00: PRODUCTS 00 SHELLFIS Allergy Active [facility] H 2 CONTAINI 00:00: NG 00 PRODUCTS Eggshell Drug Active [facility] All[facility]07 [facility]: Medical 00 [place] EGGSHELL Allergy Active [facility] MEMBRANE 09-07 00:00: [address] All[address] [facility] ONE 09-02 [facility] 00:[facility]: Medical 00 [place] IODINE Allergy Active [facility] 00 [place] PROMETHA Allergy Active [facility] 00:[facility]: Medical 00 [place] Ceftriax Propensi Active [facility] one ty to 09-02 [facility] adverse 00:00: Medical reaction 00 Center s Iodine Propensi Active [facility] ty to 09-02 [facility] adverse 00:00: Medical reaction 00 [place] s Prometha Propensi Active [facility] zine ty to 09-02 [facility] adverse 00:00: Medical reaction 00 Center s Ciproflo Propensi Active Hives 2020-08 Method i xacin ty to 0-13 st adverse 00:00: Hospita reaction 00 l s to drug Ceftriax Propensi Active Itching Unive rs one ty to 2-25 ity of adverse 00:00: [place] reaction 00 Medical s Branch CEFTRIAX DRUG Active ITCHING Univers ONE INGREDI 2-25 ity of 00:00: [place] 00 Medical Branch Ceftriax Propensi Active Itching Metho di one ty to 2-25 st adverse 00:00: Hospita reaction 00 l s to drug Prometha Propensi Active Other - See 2017-0 Severe U nivers zine ty to comments 11-05 confusion ity o f adverse 00:00: [place] reaction 00 Medical s Branch PROMETHA DRUG Active Other-Cmnt 2016-0 Univ ers ZINE INGREDI 3 ity of 00:00: [place] 00 Medical Branch Eggshell Propensi Active Diarrhea 2017-0 Egg yoke Un linda Membrane ty to 10-08 ity of adverse 00:00: [place] reaction 00 Medical s Branch EGGSHELL DRUG Active Diarrhea 2016-0 Univer s MEMBRANE INGREDI 10-08 ity of 00:00: [place] 00 Medical Branch Eggshell Propensi Active Diarrhea 2017-0 Egg [...] 00:00: [place] reaction 00 Medical s Branch SHELLFIS DRUG Active High Anaphylaxis 2015-0 Uni vers H INGREDI 05-05 ity of DERIVED 00:00: [place] 00 Medical Branch Shellfis Propensi Active Anaphylaxis 2015-0 M ethodi h ty to 05-05 st Derived adverse 00:00: Hospita reaction 00 l s to drug Iodine Propensi Active Anaphylaxis 2015-0 SOB, Met hodi ty to 05-01 wheezing, st adverse 00:00: "my Hospita reaction 00 throat l s to closes drug up."*pt states cannot have topical nor IV Iodine Propensi Active Anaphylaxis 0 Uni vers ty to 03-29 ity of adverse 00:00: [place] reaction 00 Medical s Branch IODINE DRUG Active Anaphylaxis 0 Unive rs INGREDI 03-29 ity of 00:00: [place] 00 Medical Branch NO KNOWN Allergy Active [facility] ALLERGIE S Phenerga Adverse Active Info Not Commo n n Reaction Available [facility] Iodine Adverse Active Info Not Common Reaction Available [facility] Family History Family Member Diagnosis Comments Start Date Stop Date Source Natural father No Known Problems [facility] Natural mother No Known Problems [facility] Social History Social Habit Start Date Stop Date Quantity Comments Source Exposure to Not sure University SARS-CoV-2 (event) [facility] History SDOH [facility] Alcohol Frequency Hospita l History SDOH [facility] Alcohol Std Drinks Hospit al History SDOH [facility] Alcohol Binge Hospital Alcohol intake 2021-08-30 2021-08-30 Ex-drinker [facility] 00:00:00 00:00:00 (finding) Hospital Tobacco use and 2019-01-30 2019-01-30 Never used Universit y of exposure 00:00:00 00:00:00 [facility] History of tobacco 1979-01-30 2018-08-12 Cigarette Smoker University of use 00:00:00 00:00:00 [facility] Cigarettes smoked 2016-11-22 2016-11-[address] current (pack per 00:00:00 00:00:00 Hospita l day) - Reported Cigarette 2016-11-22 2016-11-22 [facility] pack-years 00:00:00 00:00:00 Hospital Tobacco Comment 2016-09-12 2016-09-12 smokes 5 [facility] 00:00:00 00:00:00 cigarettes per Hospital day Alcohol Comment 2016-05-02 2016-05-02 Former social Method ist 00:00:00 00:00:00 alcohol use, quit Hospita l several years ago; denies history of heavy alcohol use Sex Ass[birth year] At [birth year] [facility] 00:00:00 00:00:00 Hospital Smoking Status Start Date Stop Date Source Never smoker [facility] Ex-smoker 2016-11-22 00:00:00 2016-11-22 [facility]ations Ordered Filled Start Stop Current Ordering Indication Dosage Frequency Signature Comments Components Source Medication Medication Date Date Medication? Clinician (SIG) Name Name estradioL Yes [id number] Apply 1g Univers (ESTRACE) 2- vaginally ity o f 0.01 % (0.1 00:00: at bedtime [place] mg/gram) 00 every Medical vaginal night for Branch cream 2 weeks and then apply 1g vaginally at bedtime 3 times per week (Saturday//) nystatin Yes [id number] Apply to Un linda (NYSTOP) 2- area(s) 3 ity of 100,000 00:00: (three) [place] unit/gram 00 times Medical powder daily. Branch estradioL 2021-0 Yes [id number] Apply 1g Univers (ESTRACE) 2-21 vaginally ity o f 0.01 % (0.1 00:00: at bedtime [place] mg/gram) 00 every Medical vaginal night for Branch cream 2 weeks and then apply 1g vaginally at bedtime 3 times per week (/ ida) nystatin 2021-0 Yes [id number] Apply to Un linda (NYSTOP) 2-21 area(s) 3 ity of 100,000 00:00: (three) [place] unit/gram 00 times Medical powder daily. Branch estradioL 2021-0 Yes [id number] Apply 1g Univers (ESTRACE) 2-21 vaginally ity o f 0.01 % (0.1 00:00: at bedtime [place] mg/gram) 00 every Medical vaginal night for Branch cream 2 weeks and then apply 1g vaginally at bedtime 3 times per week (/ ida) nystatin 2021-0 Yes [id number] Apply to Un linda (NYSTOP) 2-21 area(s) 3 ity of 100,000 00:00: (three) [place] unit/gram 00 times Medical powder daily. Branch methylnaltr 0 Yes Take by Uni vers exone 2-16 mouth. ity of bromide 14:28: [place] (RELISTOR 49 Medical ORAL) Branch potassium 0 Yes Take by Unive rs (POTASSIMIN 2-16 mouth once it y of ORAL) 14:28: now. [address] spironolact 2021-0 Yes 100mg Take 100 U nivers one 100 mg 2-16 mg by ity of tablet 14:28: mouth. [address] methylnaltr 2021-0 Yes Take by Uni vers exone 2-16 mouth. ity of bromide 14:28: [place] (RELISTOR 49 Medical ORAL) Branch potassium 2021-0 Yes Take by Unive rs (POTASSIMIN 2-16 mouth once it y of ORAL) 14:28: now. [address] spironolact 0 Yes 100mg Take 100 U nivers one 100 mg 2-16 mg by ity of tablet 14:28: mouth. [address] methylnaltr Yes Take by Uni vers exone 2-16 mouth. ity of bromide 14:28: [place] (RELISTOR 49 Medical ORAL) [place] potassium Yes Take by Unive rs (POTASSIMIN 2-16 mouth once it y of ORAL) 14:28: now. [address] spironolact Yes 100mg Take 100 U nivers one 100 mg 2-16 mg by ity of tablet 14:28: mouth. [address] cyanocobala Yes 1000ug Inject CH I [...] [address] [facility] [facility] (TOPAMAX) 1-24 tablet by Lusalo 50 MG 16:27: mouth Medical tablet 53 nightly. Center eszopiclone Yes 2mg Take [address] (LUNESTA) 2 1-24 by mouth Luke s MG tablet 16:27: every Medical 52 night as Center needed. gabapentin Yes 1{capsu Q.5D Take [address] (NEURONTIN) 1-24 le} capsule by Susanna knowless 300 MG 16:27: mouth 2 Medical capsule 52 (two) Center times daily. lactulose Yes 1{packe Q.[id number] Take [address] (Kristalose 1-24 t} [id number] packet by Gurpreet ) 20 gram 16:27: [...] 2-4 bowel movements per day QUEtiapine 2021-0 2- No 50mg QD Take 50 mg Methodi [...] by mouth st (ALDACTONE) 18:28: daily. Hosp apge 50 MG 49 l tablet cetirizine 2021-0 [...] [facility]: Last filled: 11/06/20 Quantity: 30 Days Supply: 30 topiramate 2021-0 Yes 50mg Q.5D Take 50 mg M ethodi (TOPAMAX) 1-[address] 50 MG 18:28: (two) Hospita tablet 48 times a l day. benztropine Yes .25mg Q.5D Take 0.25 Methodi (COGENTIN) 1-[address] 0.5 MG 18:28: mouth 2 Hospita tablet 48 (two) l times a day. primidone 0 Yes 25mg QD Take 25 mg Me thodi (MYSOLINE) 1-[address] 50 MG 18:28: nightly. Hospita tablet 48 l eszopiclone Yes 3mg QD Take 3 mg M ethodi (LUNESTA) 3 1-[address] mg tablet 18:28: nightly. Hosp page 48 Per [place] l Prescripti on Drug Monitoring Program records: Last filled: 08/09/21 Quantity: 30 Days Supply: 30 traMADoL Yes 50mg Q4H Take 50 mg Met hodi (ULTRAM) 50 -[address] mg tablet 18:28: every 4 Hospi ta 48 (four) l hours as needed for moderate pain. Per [facility] [place] [facility] on Drug Monitoring Program records: Last filled: [...] tablet 47 :00 l SUMAtriptan 0 Yes [id number] 50mg Q24H Take 1 [facility] (Imitrex) 1-10 [...] nightly for 30 days. pantoprazol 2021- No [id number] 40mg QD Take 1 Methodi e 08-21 [...] 00:00 Hospita tablet 08 :00 l cyanocobala 2022-0 2022- No 1000ug Take 1,000 Methodi min 08-[address] (VITAMIN 09:52: 00:00 mouth. [...] 2020-08 No Metho di (ZOFRAN) 4 0-04 -08 st [...] No 220mg QD Take 1 Methodi sulfate 09-22-[address] (ZINCATE) 00:00: 00:00 (220 mg Hosp page 220 (50) mg 00 :00 total) by l capsule mouth daily for 30 days. eszopiclone No 1mg QD Take 1 mg [facility] (LUNESTA) 1 09-[address] MG tablet 14:27: 00:00 nightly. Hos lis 44 :00 Take l immediatel y before bedtime topiramate 50mg QD Take 1 Meth erasto (TOPAMAX) [...] day for 30 days. gabapentin No 300mg Q.[id number] Take 1 [facility] (NEURONTIN) 04-[id number] 300 mg 00:00: 00:00 3D (300 mg Hospita capsule 00 :00 total) by l mouth 3 (three) times a day for 30 days. pantoprazol No [id number] 40mg QD Take 1 Methodi e 01-24 tablet (40 st (PROTONIX) 00:00: 00:00 mg total) H ospita 40 MG EC 00 :00 by mouth l tablet every morning. SUMAtriptan No [id number] 50mg Q24H Take 1 Methodi (Imitrex) 01-24 [...] 03-09 by mouth ity of 16:42: at [place] [address] bedtime. Medical Branch GABAPENTIN Yes Take by [facility] ers ORAL 03-09 mouth. ity of 16:42: [place] [address] Medical Branch traMADOL 50 Yes 50mg Take 50 mg Univers mg tablet 03-09 by mouth ity of 16:42: as needed [place] [address] for Pain Medical (scale Branch 7-10). eszopiclone 2019-0 Yes 2mg Take 2 mg U nivers 2 mg tablet 7-29 by mouth ity of 16:42: at [place] [address] bedtime. Medical Branch GABAPENTIN 2019-0 Yes Take by [facility] ers ORAL 7-29 mouth. ity of 16:42: [place] 13 Medical Branch traMADOL 50 2019-0 Yes 50mg Take 50 mg Univers mg tablet 7-29 by mouth ity of 16:42: as needed [place] [address] for Pain Medical (scale Branch 7-10). eszopiclone 2019-0 Yes 2mg Take 2 mg U nivers 2 mg tablet 7-29 by mouth ity of 16:42: at [place] [address] bedtime. Medical Branch GABAPENTIN 2019-0 Yes Take by [facility] ers ORAL 7-29 mouth. ity of 16:42: [place] [address] Medical Branch traMADOL 50 2019-0 Yes 50mg Take 50 mg Univers mg tablet 7-29 by mouth ity of 16:42: as needed [place] [address] for Pain Medical (scale Branch 7-10). lactulose 2019-0 Yes [id number] 20g Take 1 Un linda (KRISTALOSE 7-29 Packet by ity of ) 20 gram 00:00: mouth 3 [place] packet 00 (three) Medical times Branch daily. lactulose 2019-0 Yes [id number] 20g Take 1 Un linda (KRISTALOSE 7-29 Packet by ity of ) 20 gram 00:00: mouth 3 [place] packet 00 (three) Medical times Branch daily. lactulose 2019-0 Yes [id number] 20g Take 1 Un linda (KRISTALOSE 7-29 Packet by ity of ) 20 gram 00:00: mouth 3 [place] packet 00 (three) Medical times Branch daily. ondansetron 2019-0 Yes [id number] 8mg Take 2 Univers 4 mg tablet 4-01 tablets by it y of 00:00: mouth [place] 00 every 8 Medical (eight) Branch hours as needed for Nausea and Vomiting (N/V). ondansetron 2019-0 Yes [id number] 8mg Take 2 Univers 4 mg tablet 4-01 tablets by it y of 00:00: mouth [place] 00 every 8 Medical (eight) Branch hours as needed for Nausea and Vomiting (N/V). ondansetron 2019-0 Yes [id number] 8mg Take 2 Univers 4 mg tablet 4-01 tablets by it y of 00:00: mouth [place] 00 every 8 Medical (eight) Branch hours as needed for Nausea and Vomiting (N/V). butalbital Yes [id number] 1{capsu Take 1 Univers aspirin-caf 3-25 le} capsule by it y of feine 00:00: mouth [place] 50-325-40 00 every 4 Medical mg per (four) Branch capsule hours as needed for Pain (headache unrelieved wtih other medication s). butalbital Yes [id number] 1{capsu Take 1 Univers aspirin-caf 3-25 le} capsule by it y of feine 00:00: mouth [place] 50-325-40 00 every 4 Medical mg per (four) Branch capsule hours as needed for Pain (headache unrelieved wtih other medication s). butalbital Yes [id number] 1{capsu Take 1 Univers aspirin-caf 3-25 le} capsule by it y of feine 00:00: mouth [place] 50-325-40 00 every 4 Medical mg per (four) Branch capsule hours as needed for Pain (headache unrelieved wtih other medication s). XIFAXAN 550 2016-08 Yes [id number] TAKE ONE Univers mg tablet 1-27 TABLET BY ity o f 00:00: MOUTH 2 00 TIMES A Medical DAY Branch PANTOPRAZOL 2016-08 Yes [id number] TAKE ONE Univers E 40 mg EC 1-27 TABLET BY ity of tablet 00:00: MOUTH [place] 00 EVERY DAY Medical Branch XIFAXAN 550 2016-08 Yes [id number] TAKE ONE Univers mg tablet 1-27 TABLET BY ity o f 00:00: MOUTH 2 TIMES A Medical DAY Branch PANTOPRAZOL 2016-08 Yes [id number] TAKE ONE Univers E 40 mg EC 1-27 TABLET BY ity of tablet 00:00: MOUTH [place] 00 EVERY DAY Medical Branch XIFAXAN 550 2016-08 Yes [id number] TAKE ONE Univers mg tablet 1-27 TABLET BY ity o f 00:00: MOUTH 2 TIMES A Medical DAY Branch PANTOPRAZOL 2016-08 Yes [id number] TAKE ONE Univers E 40 mg EC [...] mouth. ity of tablet 00:00: Medical Branch Allopurinol Allopurinol Yes Fernando 2 tablets Common [facility] Immunizations Ordered Filled Immunization Date Status Comments [facility] e Immunization Name Name Influenza Virus 2021-04-12 Completed Universit y of Vaccine 00:00:00 [facility] Influenza Virus 2021-04-12 Completed Universit y of Vaccine 00:00:00 [facility] Influenza Virus 2021-04-12 Completed Universit y of Vaccine 00:00:00 [facility] SARS-COV-2 COVID-19 2020-12-14 Completed Unive rsity of YANIRA/J&J VACCINE 00:00:00 [facility] SARS-COV-2 COVID-19 2020-12-14 Completed Unive rsity of YANIRA/J&J VACCINE 00:00:00 [facility] SARS-COV-2 COVID-19 2020-12-14 Completed Unive rsity of YANIRA/J&J VACCINE 00:00:00 [facility] Influenza Virus 2018-04-21 Completed Universit y of Vaccine (3+ yrs) 00:00:00 [facility] Influenza Virus 2018-04-21 Completed Universit y of Vaccine (3+ yrs) 00:00:00 [facility] Influenza Virus 2018-04-21 Completed Universit y of Vaccine (3+ yrs) 00:00:00 [facility] Influenza (IM) 2018-04-21 Completed [facility] Preservative Free 00:00:00 Hospita l Pneumococcal 13 2016-05-08 Completed Universit y of Conjugate, PCV13 00:00:00 [place] [facility] dical (Prevnar 13) Branch Pneumococcal 13 2016-05-08 Completed Universit y of Conjugate, PCV13 00:00:00 [place] [facility] dical (Prevnar 13) Branch Pneumococcal 13 2016-05-08 Completed Universit y of Conjugate, PCV13 00:00:00 [place] [facility] dical (Prevnar 13) Branch Pneumococcal 2016-05-08 Completed [facility] Conjugate 13-Valent 00:00:00 Hospi mateo FLUCELVAX QUAD PF 2016-05-[address] 00:00:00 Hospital Vital Signs Vital Name Observation Time Observation Value Comments Source Systolic blood 2021-11-16 18:59:00 111 mm[Hg] Univer sity of pressure [facility] Diastolic blood 2021-11-16 18:59:00 74 mm[Hg] Unive rsity of pressure [facility] Heart rate 2021-11-16 18:59:00 75 /min Universi ty [facility] Body temperature 2021-11-16 18:59:00 36.67 Georgette Univ ersity of [facility] Body height 2021-11-16 18:59:00 149.9 cm [facility] Body weight 2021-11-16 18:59:00 80.559 kg [facility] BMI 2021-11-16 18:59:00 35.87 kg/m2 [facility] HEIGHT 2021-09-02 15:44:00 149.9 cm WEIGHT 2021-09-02 15:44:00 87.091 kg HEIGHT 2021-09-02 15:44:00 149.9 cm WEIGHT 2021-09-02 15:44:00 87.091 kg Systolic blood 2021-09-11 19:42:00 125 mm[Hg] [facility] Diastolic blood 2021-09-11 19:42:00 60 mm[Hg] [facility] Heart rate 2021-09-11 19:42:00 98 /min [facility] Body temperature 2021-09-11 19:42:00 35.67 Georgette [facility] Respiratory rate 2021-09-11 19:42:00 18 /min [facility] Oxygen saturation in 2021-09-11 19:42:00 100 /min [facility] Arterial blood by [facility] Pulse oximetry Body height 2021-09-02 15:44:00 149.9 cm [facility] Body weight 2021-09-02 15:44:00 87.091 kg [facility] BMI 2021-09-02 15:44:00 38.78 kg/m2 [facility] Systolic blood 2021-08-31 06:30:00 119 mm[Hg] [facility] pressure Diastolic blood 2021-08-31 06:30:00 68 mm[Hg] [facility] pressure Heart rate 2021-08-31 06:30:00 70 /min [facility] Respiratory rate 2021-08-31 06:30:00 16 /min [facility] Oxygen saturation in 2021-08-31 06:30:00 97 /min [facility] Arterial blood by Pulse oximetry Body temperature 2021-08-31 04:04:09 36.83 Georgette [facility] Body height 2021-08-31 04:04:00 149.9 cm [facility] Body weight 2021-08-31 04:04:00 89.359 kg [facility] BMI 2021-08-31 04:04:00 39.79 kg/m2 [facility] Procedures Procedure Date / Time Performing Clinician Source Performed EXTERNAL PROVIDER RECORDS 2022-02-08 05:01:00 Doctor Unassigned, No [facility] HEPATIC FUNCTION PANEL 2021-09-11 05:33:00 Niya Cartagena [facility] CBC W/PLT COUNT & AUTO 2021-09-11 05:33:00 KaNiya rm [facility] PROTHROMBIN TIME/INR 2021-09-11 05:33:00 Niya Cartagena [facility] BASIC METABOLIC PANEL (7) 2021-09-11 05:33:[address] [facility] MAGNESIUM 2021-09-11 05:33:00 Selma Lu [facility] CBC W/PLT COUNT & AUTO 2021-09-11 05:33:00 KaNiya rm [facility] HEPATIC FUNCTION PANEL 2021-09-10 06:52:00 Mitzi Niya [facility] CBC W/PLT COUNT & AUTO 2021-09-10 06:52:00 Niya Cartagena [facility] PROTHROMBIN TIME/INR 2021-09-10 06:52:00 Niya Cartagena Cindy [facility] BASIC METABOLIC PANEL (7) 2021-09-10 06:52:[address] [facility] MAGNESIUM 2021-09-10 06:52:00 Selma Lu [facility] CBC W/PLT COUNT & AUTO 2021-09-10 06:52:00 Niya Cartagena [facility] HEPATIC FUNCTION PANEL 2021-09-09 05:51:00 Kajag Niya [facility] CBC W/PLT COUNT & AUTO 2021-09-09 05:51:00 KaNiya rm [facility] PROTHROMBIN TIME/INR 2021-09-09 05:51:00 KaNiya rm [facility] BASIC METABOLIC PANEL (7) 2021-09-09 05:51:[address] [facility] CBC W/PLT COUNT & AUTO 2021-09-09 05:51:00 Niya Cartagenaison [facility] (CELLAVISION MANUAL DIFF) 2021-09-09 05:51:[address] [facility] AMMONIA 2021-09-08 10:54:00 Selma Lu [facility] PHOSPHORUS 2021-09-08 05:14:00 Isabella [facility] HEPATIC FUNCTION PANEL 2021-09-08 05:14:00 KaNiya rm [facility] CBC W/PLT COUNT & AUTO 2021-09-08 05:14:00 [facility]/INR 2021-09-08 05:14:00 Niya Cartagena [facility] BASIC METABOLIC PANEL (7) 2021-09-08 05:14:[address] [facility] CBC W/PLT COUNT & AUTO 2021-09-08 05:14:00 [facility] (CELL[facility] DIFF) 2021-09-08 05:14:[address] [facility] PHOSPHORUS 2021-09-07 05:37:00 Isabella, [facility] HEPATIC FUNCTION PANEL 2021-09-07 05:37:00 KaimNiya [facility] CBC W/PLT COUNT & AUTO 2021-09-07 05:37:00 Niya Cartagena [facility] PROTHROMBIN TIME/INR 2021-09-07 05:37:00 KaNiya rm [facility] BASIC METABOLIC PANEL (7) 2021-09-07 05:37:00 LizzjagHenryNiya Allalireza on [facility] CBC W/PLT COUNT & AUTO 2021-09-07 05:37:00 LizzjagHenryNiya Cindy [facility] (CELLAVISION MANUAL DIFF) 2021-09-07 05:37:00 Niya Cartagena on [facility] PROTHROMBIN TIME/INR 2021-09-06 06:37:00 LizzjagHenryNiyalilian [facility] BASIC METABOLIC PANEL (7) 2021-09-06 06:37:00 Isabella, Mrinalin i [facility] PHOSPHORUS 2021-09-06 06:37:00 Isabella Mrinalini [facility] PROTHROMBIN TIME/INR 2021-09-05 14:31:00 Mitzi Niyalilian [facility] BASIC METABOLIC PANEL (7) 2021-09-05 14:31:00 Isabella, Mrinalin i [facility] PHOSPHORUS 2021-09-05 14:31:00 Isabella, Mrinalini [facility] CBC W/PLT COUNT & AUTO 2021-09-05 14:31:00 Gianna Masonnalini C [facility] HEPATIC FUNCTION PANEL 2021-09-05 14:31:00 Gianna Masonnalini C [facility] CBC W/PLT COUNT & AUTO 2021-09-05 14:31:00 Gianna Masonnalini C [facility] (CELLAVISION MANUAL DIFF) 2021-09-05 14:31:00 Isabella, Mrinalin i [facility] C. DIFFICILE GDH TOXIN 2021-09-04 11:52:00 Jaqueline Vitale [facility] CT ABDOMEN/PELVIS WITH IV 2021-09-04 09:03:00 Mirian Goodman [facility] CT CHEST WITH IV CONTRAST 2021-09-04 09:03:00 Mable Mason i [facility] CBC W/PLT COUNT & AUTO 2021-09-04 04:39:00 Nia Lawrence [facility] COMPREHENSIVE METABOLIC 2021-09-04 04:39:00 Nia Lawrence [facility] MAGNESIUM 2021-09-04 04:39:00 Nia Lawrence [facility] PHOSPHORUS 2021-09-04 04:39:00 Nia Lawrence [facility] CBC W/PLT COUNT & AUTO 2021-09-04 04:39:00 Nia Lawrence [facility] (CELLAVISION MANUAL DIFF) 2021-09-04 04:39:00 Nia Lawrence sa [facility] HEPATITIS A ANTIBODY, IGG 2021-09-03 12:02:00 Gianna Masonnalin i [facility] HEPATITIS B CORE ANTIBODY, 2021-09-03 12:02:00 Laura Mason ni [facility] TOTAL [facility] HEPATITIS B SURFACE 2021-09-03 12:02:00 Gianna Masonnalini [facility] ANTIBODY [facility] HEPATITIS B SURFACE 2021-09-03 12:02:00 Juve Masonini [facility] ANTIGEN [facility] HEPATITIS C ANTIBODY 2021-09-03 12:02:00 Gianna Masonnalnatan [facility] CBC W/PLT COUNT & AUTO 2021-09-03 12:01:00 Nia Lawrence [facility] COMPREHENSIVE METABOLIC 2021-09-03 12:01:00 Nia Lawrence [facility] MAGNESIUM 2021-09-03 12:01:00 Nia Lawrence [facility] PHOSPHORUS 2021-09-03 12:01:00 Nia Lawrence [facility] PROTHROMBIN TIME/INR 2021-09-03 12:01:00 [facility] CBC W/PLT COUNT & AUTO 2021-09-03 12:01:00 Nia Lawrence [facility] (CELLAVISION MANUAL DIFF) 2021-09-03 12:01:00 Nia Lawrence sa [facility] BLOOD CULTURE 2021-09-03 11:59:00 Nia Lawrence [facility] OVA AND PARASITE 2021-09-02 09:44:00 [facility] GI PATHOGEN PROFILE BY PCR 2021-09-02 09:44:00 Troy Awad il [facility] BLOOD CULTURE 2021-09-02 06:03:00 Nia Lawrence [facility] CBC W/PLT COUNT & AUTO 2021-09-02 06:03:[facility]OLIC 2021-09-02 06:03:00 Nia Lawrence [facility] MAGNESIUM 2021-09-02 06:03:00 Nia Lawrence [facility] PHOSPHORUS 2021-09-02 06:03:00 [facility] PROTEIN 2021-09-02 06:03:00 [facility] W/[facility]T COUNT & AUTO 2021-09-02 06:03:00 Nia Lawrence [facility] (CELLAVISION MANUAL DIFF) 2021-09-02 06:03:00 Nia Lawrence sa [facility] IRON, TIBC, % SAT. 2021-09-02 06:01:00 Nia Lawrence [facility]OUT [facility] r VITAMIN B12 AND FOLATE 2021-09-02 06:01:[address] BRAIN WITHOUT IV 2021-09-02 02:39:00 Nia Lawrence [facility] US ABDOMEN LIMITED 2021-09-02 02:09:00 Nia Lawrence [facility] URINE CULTURE 2021-09-02 01:29:00 Nia Lawrence [facility] URINALYSIS W/ REFLEX URINE 2021-09-02 01:29:00 Nia Lawrence [facility] CULTURE [facility] XR CHEST 1 VIEW PORTABLE / 2021-09-02 01:02:00 Nia Lawrence [facility] BEDSIDE [facility] CBC W/PLT COUNT & AUTO 2021-09-01 22:55:00 Nia Lawrence [facility] LACTIC ACID, VENOUS 2021-09-01 22:55:00 Nia Lawrence [facility] PT/APTT 2021-09-01 22:55:00 Kyle Nia [facility] HEPATIC FUNCTION PANEL 2021-09-01 22:55:00 Kyle Nia [facility] BASIC METABOLIC PANEL (7) 2021-09-01 22:55:00 Nia Lawrence [facility] MAGNESIUM 2021-09-01 22:55:00 [facility] 2021-09-01 22:55:00 [facility] W/PLT COUNT & AUTO 2021-09-01 22:55:00 [facility] 2021-09-01 22:55:00 Nia Lawrence [facility] POCT-GLUCOSE METER 2021-09-01 22:36:00 Lacey Pan [facility] CT ABDOMEN PELVIS WO 2021-08-31 05:50:00 [facility] HC COMPLETE BLD COUNT 2021-08-31 04:21:00 Moises Bro [facility] W/AUTO DIFF [facility] COMPREHENSIVE METABOLIC 2021-08-31 04:21:00 Moises Bro [facility] PANEL [facility] LACTIC ACID, I-STAT 2021-08-31 04:21:00 Moises Bro [facility] ESTIMATED GFR 2021-08-31 04:21:00 Moises Bro [facility] [place] SPIROMETRY, DIFFUSION, 2021-08-25 19:27:26 [facility] LUNG VOLUMES, MIPS/MEPS XR CHEST 2 VW 2021-08-25 18:00:20 [facility] XR PANOREX 2021-08-25 17:59:56 [facility] POC GLUCOSE 2021-08-25 13:51:00 Davina Jennifer [facility] SALEEM-POSEY VIRUS 2021-08-25 11:08:00 [facility] ANTIBODY TEST HC COMPLETE BLD COUNT 2021-08-25 11:08:00 Davina [facility] W/AUTO DIFF COMPREHENSIVE METABOLIC 2021-08-25 11:08:00 [facility] PANEL PROTHROMBIN TIME WITH INR 2021-08-25 11:08:00 Jennifer Ghosh [facility] ESTIMATED GFR 2021-08-25 11:08:00 Davina Jennifer [facility] POC GLUCOSE 2021-08-25 03:18:00 Davina [facility] spital POC GLUCOSE 2021-08-25 00:22:00 Davina [facility] POC GLUCOSE 2021-08-24 19:43:00 Davina Jennifer [facility] CREATININE LEVEL, URINE, 2021-08-24 18:13:00 [facility] PROTEIN, URINE, TIMED 2021-08-24 18:13:00 [facility] CV SELECTIVE CORONARY 2021-08-24 16:44:00 Cabrera Fierro [facility] ANGIOGRAPHY [place] HC COMPLETE BLD COUNT 2021-08-24 11:01:00 [facility] W/AUTO DIFF [facility] BASIC METABOLIC PANEL 2021-08-24 11:01:00 [facility] HEPATIC FUNCTION PANEL 2021-08-24 11:01:00 [facility] [place] MAGNESIUM LEVEL 2021-08-24 11:01:00 Alma Girard [place] PROTHROMBIN TIME WITH INR 2021-08-24 11:01:00 [facility] [place] ESTIMATED GFR 2021-08-24 11:01:00 Alma Girard [place] POC GLUCOSE 2021-08-24 03:07:00 Jennifer Ghoshtal POC GLUCOSE 2021-08-24 00:11:00 Jennifer Ghosh COVID-19 QUALITATIVE 2021-08-23 22:15:00 Dayo Moeller [facility] RT-PCR POC GLUCOSE 2021-08-23 19:17:00 Jennifer Ghoshtal POC GLUCOSE 2021-08-23 14:05:00 Jennifer Ghosh HC COMPLETE BLD COUNT 2021-08-23 11:49:00 [facility] W/AUTO DIFF [facility] BASIC METABOLIC PANEL 2021-08-23 11:49:00 [facility] HEPATIC FUNCTION PANEL 2021-08-23 11:49:00 [facility] MAGNESIUM LEVEL 2021-08-23 11:49:00 Alma Girard [place] PROTHROMBIN TIME WITH INR 2021-08-23 11:49:00 [facility] ALPHA FETOPROTEIN 2021-08-23 11:49:00 [facility]Jose [facility]An[facility] ALPHA-1 ANTITRYPSIN LEVEL 2021-08-23 11:49:00 [facility] ANTI SMOOTH MUSCLE AB 2021-08-23 11:49:00 Emma [facility] SCREEN C-REACTIVE PROTEIN 2021-08-23 11:49:00 [facility] ANTIGEN 125 2021-08-23 11:49:00 Emma [facility] CANCER ANTIGEN 19-9 2021-08-23 11:49:00 [facility] CARCINOEMBRYONIC ANTIGEN 2021-08-23 11:49:00 [facility] (CEA) CERULOPLASMIN LEVEL 2021-08-23 11:49:00 [facility] CORTISOL LEVEL, RANDOM 2021-08-23 11:49:00 [facility] CORTISOL, FREE BY 2021-08-23 11:49:00 [facility] ED/LC-MS/MS CYTOMEGALOVIRUS AB, IGG 2021-08-23 11:49:00 [facility] CYTOMEGALOVIRUS AB, IGM 2021-08-23 11:49:00 [facility] DRUG KIM 9, SER/THAIS, SCRN 2021-08-23 11:49:00 [facility] W/RFLX TO CONF FERRITIN LEVEL 2021-08-23 11:49:00 [facility] FIBRINOGEN 2021-08-23 11:49:00 [facility] HEPATITIS A ANTIBODY IGM 2021-08-23 11:49:00 [facility] HEPATITIS A ANTIBODY TOTAL 2021-08-23 11:49:00 [facility] HEPATITIS B CORE ANTIBODY 2021-08-23 11:49:00 [facility] TOTAL HEPATITIS B SURFACE 2021-08-23 11:49:00 [facility] ANTIBODY HEPATITIS B SURFACE 2021-08-23 11:49:00 [facility] ANTIGEN HEPATITIS C ANTIBODY 2021-08-23 11:49:00 [facility] HIV AG/AB COMBINATION 2021-08-23 11:49:00 [facility] HIV-1 RNA, QUALITATIVE TMA 2021-08-23 11:49:00 [facility] HLA TRANSPLANT EVALUATION 2021-08-23 11:49:00 [facility] LIPID PANEL 2021-08-23 11:49:00 [facility] BARBITURATES, S/P, QUANT 2021-08-23 11:49:00 [facility] PARTIAL THROMBOPLASTIN 2021-08-23 11:49:00 [facility] TIME (PTT) PHOSPHATIDYLETHANOL, BLOOD 2021-08-23 11:49:00 [facility] PHOSPHORUS LEVEL 2021-08-23 11:49:00 [facility] PREALBUMIN LEVEL 2021-08-23 11:49:00 [facility] SERUM ELECTROPHORESIS 2021-08-23 11:49:00 [facility] SYPHILIS TREPONEMA SCREEN 2021-08-23 11:49:00 [facility] WITH RPR CONFIRMATION (REVERSE ALGORITHM) T3, FREE 2021-08-23 11:49:00 [facility] TB T-SPOT 2021-08-23 11:49:00 [facility] TOTAL IRON BINDING 2021-08-23 11:49:00 [facility] CAPACITY ZINC LEVEL, SERUM 2021-08-23 11:49:00 [facility] ESTIMATED GFR 2021-08-23 11:49:00 Alma Girard yusuftal [place] SINGLE ANTIGEN BEADS 2021-08-23 11:49:00 [facility] C1Q CLASS 1 & 2 ANTIBODY 2021-08-23 11:49:00 [facility] CT CHEST WO CONTRAST 2021-08-23 04:25:00 [facility]OC GLU[facility]SE 2021-08-23 02:55:00 Jennifer Ghosh US CAROTID DUPLEX 2021-08-23 02:40:00 [facility] BILATERAL TTE COMPLETE, WO CONTRAST, 2021-08-22 23:47:00 [facility] W AGITATED SALINE ([id number]) US ABDOMEN COMPLETE 2021-08-22 22:30:00 [facility] ECG 12-LEAD 2021-08-22 21:31:09 [facility] POC GLUCOSE 2021-08-22 13:43:00 Jennifer Ghosh spital HC COMPLETE BLD COUNT 2021-08-22 10:59:00 Ting Pierson [facility] W/AUTO DIFF [facility] BASIC METABOLIC PANEL 2021-08-22 10:59:00 Ting Dangelo [facility] HEPATIC FUNCTION PANEL 2021-08-22 10:59:00 [facility] MAGNESIUM LEVEL 2021-08-22 10:59:00 Alma Girard spital [place] PHOSPHORUS LEVEL 2021-08-22 10:59:00 Alma Girard ospital [place] PROTHROMBIN TIME WITH INR 2021-08-22 10:59:00 [facility] ESTIMATED GFR 2021-08-22 10:59:00 Alma Girard spital [place] POC GLUCOSE 2021-08-22 03:06:00 Jennifer Ghosh spital POC GLUCOSE 2021-08-22 00:27:00 Jennifer Ghosh Ho spital POC GLUCOSE 2021-08-21 19:09:00 Jennifer Ghosh Ho spital POC GLUCOSE 2021-08-21 13:46:00 Alma Girard spital [place] HC COMPLETE BLD COUNT 2021-08-21 10:56:[address] [facility] DIFF [facility] BASIC METABOLIC PANEL 2021-08-21 10:56:00 Ting Pierson [facility] HEPATIC FUNCTION PANEL 2021-08-21 10:56:00 [facility] LEVEL 2021-08-21 10:56:00 Alma Girard spital [place] PHOSPHORUS LEVEL 2021-08-21 10:56:00 Alma Girard ospital [place] PROTHROMBIN TIME WITH INR 2021-08-21 10:56:00 [facility] ESTIMATED GFR 2021-08-21 10:56:00 Alma Girard spital [place] POC GLUCOSE 2021-08-21 03:20:00 Alma Girard spital [place] POC GLUCOSE 2021-08-20 14:56:00 Davina Jennifergeorge Marquez Ho spital HC COMPLETE BLD COUNT 2021-08-20 10:57:00 Ting Pierson [facility] W/AUTO DIFF [facility] BASIC METABOLIC PANEL 2021-08-20 10:57:00 [facility] 2021-08-20 10:57:00 [facility] [place] MAGNESIUM LEVEL 2021-08-20 10:57:00 Alma Girrad spital [place] PHOSPHORUS LEVEL 2021-08-20 10:57:00 Alma Girard ospital [place] PROTHROMBIN TIME WITH INR 2021-08-20 10:57:00 [facility] ESTIMATED GFR 2021-08-20 10:57:00 Alma Girard spital [place] POC GLUCOSE 2021-08-20 02:42:00 Alma Girard spital [place] POC GLUCOSE 2021-08-19 20:04:00 Alma Girard spital [place] HC COMPLETE BLD COUNT 2021-08-19 11:38:00 Ting Pierson [facility] W/AUTO DIFF [facility] BASIC METABOLIC PANEL 2021-08-19 11:38:00 Ting Dangelo [facility] HEPATIC FUNCTION PANEL 2021-08-19 11:38:00 [facility] [place] MAGNESIUM LEVEL 2021-08-19 11:38:00 Alma Girard spital [place] PHOSPHORUS LEVEL 2021-08-19 11:38:00 Alma Girard ospital [place] PROTHROMBIN TIME WITH INR 2021-08-19 11:38:00 [facility] EST[facility]ATED GFR 2021-08-19 11:38:00 Alma Girard spital [place] POC GLUCOSE 2021-08-19 03:14:00 Alma Girard spital [place] POC GLUCOSE 2021-08-18 23:30:00 Alma Girard Ho spimateo Self POC GLUCOSE 2021-08-18 15:37:00 Alma Girard URINE CULTURE 2021-08-18 12:53:00 Alma Girard URINALYSIS SCREEN AND 2021-08-18 11:31:00 [facility] MICROSCOPY, WITH REFLEX TO [facility] CULTURE LACTIC ACID LEVEL, SEPSIS 2021-08-18 10:21:[address] [facility] - NOW AND REPEAT 2X EVERY 3 HOURS HC COMPLETE BLD COUNT 2021-08-18 10:21:00 [facility] W/AUTO DIFF [facility] BASIC METABOLIC PANEL 2021-08-18 10:21:00 [facility] HEPATIC FUNCTION PANEL 2021-08-18 10:21:00 [facility] MAGNESIUM LEVEL 2021-08-18 10:21:00 [facility] Alma Pierson shane [place] PHOSPHORUS LEVEL 2021-08-18 10:21:00 Ting Alma Pierson ospimateo Self PROTHROMBIN TIME WITH INR 2021-08-18 10:21:00 [facility] ESTIMATED GFR 2021-08-18 10:21:00 Ting Alma Pierson shane [place] LACTIC ACID LEVEL, SEPSIS 2021-08-18 07:56:[address] [facility] - NOW AND REPEAT 2X EVERY 3 HOURS BLOOD CULTURE, AEROBIC & 2021-08-18 05:00:00 [facility] ANAEROBIC [facility] ECG 12-LEAD 2021-08-18 04:24:58 Conchis [facility] CT ABDOMEN PELVIS WO 2021-08-18 04:19:03 Orlando Balderrama [facility] CONTRAST CT HEAD WO CONTRAST 2021-08-18 04:18:21 [facility] LACTIC ACID LEVEL, SEPSIS 2021-08-18 03:37:00 [facility] - NOW AND REPEAT 2X EVERY 3 HOURS B NATRIURETIC PEPTIDE 2021-08-18 03:37:00 [facility] PROTHROMBIN TIME WITH INR 2021-08-18 03:20:00 [facility] AMMONIA LEVEL 2021-08-18 03:20:00 [facility] TROPONIN T 2021-08-18 03:20:00 [facility] XR CHEST 1 VW PORTABLE 2021-08-18 03:14:19 [facility] HC COMPLETE BLD COUNT 2021-08-18 03:03:00 [facility] W/AUTO DIFF COMPREHENSIVE METABOLIC 2021-08-18 03:03:[address] [facility] PANEL ESTIMATED GFR 2021-08-18 03:03:00 [facility] RESPIRATORY PATHOGEN PANEL 2021-08-18 03:03:00 [facility] WITH COVID-19 RT-PCR ECG ED PRELIMINARY 2021-08-18 02:54:33 [facility] INTERPRETATION COVID-19 QUALITATIVE 2021-08-11 05:31:00 [facility] RT-PCR [facility] COMPREHENSIVE METABOLIC 2021-08-11 05:30:00 [facility] PANEL [facility] HC COMPLETE BLD COUNT 2021-08-11 05:30:00 [facility] W/AUTO DIFF [facility] LACTIC ACID, I-STAT 2021-08-11 05:30:00 [facility] ESTIMATED GFR 2021-08-11 05:30:00 [facility] ECG 12-LEAD 2021-08-11 05:15:35 [facility] URINALYSIS 2021-08-11 05:00:00 Moises Bro [facility] XR CHEST 1 VW PORTABLE 2021-08-11 04:27:00 Moises Bro [facility] LACTIC ACID, I-STAT 2021-06-28 22:37:00 Romero Limon [facility] URINALYSIS 2021-06-28 21:45:00 Romero Limon shane HC COMPLETE BLD COUNT 2021-06-28 20:01:00 [facility]AUTO DIFF PROTHROMBIN TIME WITH INR, 2021-06-28 20:01:00 Romero Limon [facility] I-STAT COMPREHENSIVE METABOLIC 2021-06-28 20:01:00 Romero Limon [facility] PANEL LACTIC ACID, I-STAT 2021-06-28 20:01:00 Romero Limon [place] [facility] SEDIMENTATION RATE 2021-06-28 20:01:00 Braxton [facility] ESTIMATED GFR 2021-06-28 20:01:00 Romero Limon shane COVID-19 QUALITATIVE 2021-06-28 20:01:00 Romero Limon [facility] RT-PCR BLOOD CULTURE, AEROBIC & 2021-06-28 20:01:00 Romero Limon [facility] ANAEROBIC HC COMPLETE BLD COUNT 2021-06-21 11:20:00 Pierce Marshall [facility] W/AUTO DIFF [place] BASIC METABOLIC PANEL 2021-06-21 11:20:00 [facility] [place] HEPATIC FUNCTION PANEL 2021-06-21 11:20:00 [facility] MAGNESIUM LEVEL 2021-06-21 11:20:00 Pierce Marshall shane [place] PROTHROMBIN TIME WITH INR 2021-06-21 11:20:00 Pierce Marshall [facility] [place] PHOSPHORUS LEVEL 2021-06-21 11:20:00 Pierce Marshall ospital [place] ESTIMATED GFR 2021-06-21 11:20:00 DinakarPierce PHOSPHATIDYLETHANOL, BLOOD 2021-06-21 11:20:00 [facility] URINE DRUGS OF ABUSE 2021-06-21 10:11:00 [facility] SCREEN URINALYSIS SCREEN AND 2021-06-21 10:10:00 [facility] MICROSCOPY, WITH REFLEX TO CULTURE URINE CULTURE 2021-06-21 10:10:00 [facility] COVID-19 SEROLOGY PATIENT 2021-06-20 17:52:00 Dinakar, [facility] SURVEILLANCE [facility] COVID-19 ANTI-SPIKE IGG 2021-06-20 17:52:00 Dinakar, [facility] ANTIBODY TITER [facility] HC COMPLETE BLD COUNT 2021-06-20 11:03:00 Dinakar, [facility] W/AUTO DIFF [facility] BASIC METABOLIC PANEL 2021-06-20 11:03:00 Dinakar, [facility] HEPATIC FUNCTION PANEL 2021-06-20 11:03:00 Dinakar, [facility] MAGNESIUM LEVEL 2021-06-20 11:03:00 DinholleyrPierce Blayne PROTHROMBIN TIME WITH INR 2021-06-20 11:03:00 Dinakar, [facility] PHOSPHORUS LEVEL 2021-06-20 11:03:00 Pierce [facility] [place] ESTIMATED GFR 2021-06-20 11:03:00 DinholleyrPierce XR ABDOMEN 1 VW PORTABLE 2021-06-20 00:11:00 [facility] AMMONIA LEVEL 2021 11:27:00 Jennifer Ghoshtal HC COMPLETE BLD COUNT 2021 11:24:00 Jennifer Ghosh [facility] W/AUTO DIFF PROTHROMBIN TIME WITH INR 2021 11:24:00 Jennifer Ghosh [facility] COMPREHENSIVE METABOLIC 2021 11:24:00 Li, Jennifer [facility] PANEL PHOSPHORUS LEVEL 2021 11:24:00 Davina [facility] MAGNESIUM LEVEL 2021 11:24:00 Stanislaw Ghoshuang [facility] HEMOGLOBIN A1C 2021 11:24:00 Jennifer [facility] THYROID STIMULATING 2021 11:24:00 [facility] HORMONE T4 2021 11:24:00 Stanislaw Ghoshuang [facility] VITAMIN D 25 HYDROXY LEVEL 2021 11:24:00 [facility] ESTIMATED GFR 2021 11:24:00 Stanislaw Ghoshuang [facility] LACTIC ACID, I-STAT 2021 01:31:00 [facility] COVID-19 QUALITATIVE 2021 01:21:00 Diana Bangura [facility] RT-PCR CLOSTRIDIUM DIFFICILE 2021 00:30:00 Diana Bangura [facility] TOXIN ENTERIC BACTERIAL PANEL 2021 00:30:00 [facility]INAL[facility]IS 2021 00:09:00 Diana Bangura [facility] METABOLIC 2021-06-18 22:51:00 [facility] PANEL AMYLASE LEVEL 2021-06-18 22:51:00 Diana Bangura [facility] ESTIMATED GFR 2021-06-18 22:51:00 Willem Diana [facility] HC COMPLETE BLD COUNT 2021-06-18 21:51:00 [place] [facility] W/AUTO DIFF [facility] METABOLIC 2021-06-18 21:51:00 [facility] PANEL LACTIC ACID, I-STAT 2021-06-18 21:51:00 [facility] AMYLASE LEVEL 2021-06-18 21:51:00 [facility] ESTIMATED GFR 2021-06-18 21:51:[address] [facility] [address] [facility] AMMONIA LEVEL 2021-06-18 21:47:00 Diana Bangura [facility] HC COMPLETE BLD COUNT 2021-06-02 09:45:00 [facility] W/AUTO DIFF PROTHROMBIN TIME WITH INR 2021-06-02 09:45:00 [facility] BASIC METABOLIC PANEL 2021-06-02 09:45:00 [facility] HEPATIC FUNCTION PANEL 2021-06-02 09:45:00 [facility] PHOSPHORUS LEVEL 2021-06-02 09:45:00 [facility] MAGNESIUM LEVEL 2021-06-02 09:45:00 [facility]spital ESTIMATED GFR 2021-06-02 09:45:00 [facility]ital US ABDOMINAL LIMITED 2021-06-01 21:06:20 Joana Ling [facility] VENIPUNC NEED PHYS 2021-06-01 14:32:45 [facility] SKILL,DX OR RX HC COMPLETE BLD COUNT 2021-06-01 10:30:00 [facility] W/AUTO DIFF PROTHROMBIN TIME WITH INR 2021-06-01 10:30:00 [facility] BASIC METABOLIC PANEL 2021-06-01 10:30:00 [facility] HEPATIC FUNCTION PANEL 2021-06-01 10:30:00 [facility] PHOSPHORUS LEVEL 2021-06-01 10:30:00 [facility] MAGNESIUM LEVEL 2021-06-01 10:30:00 [facility]spital HEMOGLOBIN A1C 2021-06-01 10:30:00 [facility]ital THYROID STIMULATING 2021-06-01 10:30:00 [facility] HORMONE T4 2021-06-01 10:30:00 [facility]ital VITAMIN D 25 HYDROXY LEVEL 2021-06-01 10:30:00 [facility] ZINC LEVEL, SERUM 2021-06-01 10:30:00 [facility] ALPHA FETOPROTEIN 2021-06-01 10:30:00 [facility] AMMONIA LEVEL 2021-06-01 10:30:00 [facility]ital ESTIMATED GFR 2021-06-01 10:30:00 [facility]ital PHOSPHATIDYLETHANOL, BLOOD 2021-06-01 10:30:00 [facility] URINE CULTURE 2021-06-01 02:48:00 [facility] BLOOD CULTURE, AEROBIC & 2021-06-01 02:43:00 [facility] ANAEROBIC BLOOD CULTURE, AEROBIC & 2021-06-01 02:42:00 [facility] ANAEROBIC URINALYSIS SCREEN AND 2021-06-01 02:40:00 [facility] MICROSCOPY, WITH REFLEX TO CULTURE URINE DRUGS OF ABUSE 2021-06-01 02:40:00 [facility] SCREEN URIC ACID LEVEL 2021-06-01 02:38:00 [facility]ital PROTHROMBIN TIME WITH INR 2021-06-01 02:38:00 [facility] PHOSPHORUS LEVEL 2021-06-01 02:38:00 [facility] PARTIAL THROMBOPLASTIN 2021-06-01 02:38:00 [facility] TIME (PTT) MAGNESIUM LEVEL 2021-06-01 02:38:00 [facility] HEPATIC FUNCTION PANEL 2021-06-01 02:38:00 [facility] LDH 2021-06-01 02:38:00 [facility]spital LACTIC ACID LEVEL 2021-06-01 02:38:00 [facility] FIBRINOGEN 2021-06-01 02:38:00 Chela Fortuna [facility] HC COMPLETE BLD COUNT 2021-06-01 02:38:[address] [facility] W/AUTO DIFF BASIC METABOLIC PANEL 2021-06-01 02:38:00 [facility] AMMONIA LEVEL 2021-06-01 02:38:00 Chela [facility]spital ESTIMATED GFR 2021-06-01 02:38:00 Chela [facility] ospital COVID-19 SEROLOGY PATIENT 2021-06-01 02:38:00 Chela [facility] SURVEILLANCE COVID-19 ANTI-SPIKE IGG 2021-06-01 02:38:00 Chela [facility] ANTIBODY TITER ECG 12-LEAD 2021-06-01 01:06:10 Chela Heriberto [facility] XR ABDOMEN 1 VW PORTABLE 2021-06-01 01:06:00 Chela [facility] XR CHEST 1 VW PORTABLE 2021-06-01 01:02:00 Chela [facility] COVID-19 QUALITATIVE 2021-06-01 00:37:00 Chela [facility] RT-PCR HC COMPLETE BLD COUNT 2021-05-27 10:09:00 [facility] W/AUTO DIFF [facility] BASIC METABOLIC PANEL 2021-05-27 10:09:00 [facility]CTION [facility]EL 2021-05-27 10:09:00 [facility] MAGNESIUM LEVEL 2021-05-27 10:09:00 Alma Girard PHOSPHORUS LEVEL 2021-05-27 10:09:00 Alma Girard ossheldon Self PROTHROMBIN TIME WITH INR 2021-05-27 10:09:[address] [facility] [place] ESTIMATED GFR 2021-05-27 10:09:00 Alma Girard VENOUS BLOOD GAS 2021-05-26 23:37:00 Nia Faustin Nellie COMPLETE BLD COUNT 2021-05-26 09:02:00 [facility] W/AUTO DIFF [place] PROTHROMBIN TIME WITH INR 2021-05-26 09:02:00 [facility] COVID-19 SEROLOGY PATIENT 2021-05-26 09:02:00 Abe Partida [facility] SURVEILLANCE Tom SMEAR REVIEW 2021-05-26 09:02:00 Alma Girard PHOSPHATIDYLETHANOL, BLOOD 2021-05-26 09:02:00 Palak Mayorga [facility]-19 ANTI-SPIKE IGG 2021-05-26 09:02:00 Abe Partida [facility] ANTIBODY TITER Tom BASIC METABOLIC PANEL 2021-05-26 09:00:00 [facility] HEPATIC FUNCTION PANEL 2021-05-26 09:00:00 Tnig [facility] MAGNESIUM LEVEL 2021-05-26 09:00:00 Alma Girard PHOSPHORUS LEVEL 2021-05-26 09:00:00 Alma Girard ossheldon Self ALPHA FETOPROTEIN 2021-05-26 09:00:00 Emma [facility] ZINC LEVEL, SERUM 2021-05-26 09:00:00 [facility] ESTIMATED GFR 2021-05-26 09:00:00 Alma Girard URINALYSIS SCREEN AND 2021-05-25 23:41:00 [facility] MICROSCOPY, WITH REFLEX TO [place] CULTURE URINE DRUGS OF ABUSE 2021-05-25 23:41:00 [facility] SCREEN [place] URINE CULTURE 2021-05-25 23:41:00 Alma Girard US HEPATIC 2021-05-25 20:43:26 Alma Girard US ABDOMINAL DOPPLER 2021-05-25 20:40:00 Ting Pierson, [facility] HC COMPLETE BLD COUNT 2021-05-25 18:10:00 Ting Pierson [facility] W/AUTO DIFF [place] SMEAR REVIEW 2021-05-25 18:10:00 Alma Girard [place] VENIPUNC NEED PHYS 2021-05-25 15:59:39 Tristin Hunt [facility] SKILL,DX OR RX CBC WITH PLATELET AND 2021-05-25 13:57:00 [facility] DIFFERENTIAL [facility] COMPREHENSIVE METABOLIC 2021-05-25 13:57:00 [facility] PANEL [place] ESTIMATED GFR 2021-05-25 13:57:00 Alma Girard [facility] LACTIC ACID, I-STAT 2021-05-25 00:58:00 Romero Limon [facility] COVID-19 QUALITATIVE 2021-05-25 00:00:00 Romero Limon [facility] RT-PCR CT ABDOMEN PELVIS WO 2021-05-24 23:16:57 Romero Limon [facility] CONTRAST URINALYSIS 2021-05-24 22:19:00 Romero Limon HC COMPLETE BLD COUNT 2021-05-24 22:13:00 Romero Limon [facility] W/AUTO DIFF COMPREHENSIVE METABOLIC 2021-05-24 22:13:00 Romero Limon [facility] PANEL AMYLASE LEVEL 2021-05-24 22:13:00 Romero Limon LACTIC ACID, I-STAT 2021-05-24 22:13:00 Romero Limon [facility] ESTIMATED GFR 2021-05-24 22:13:00 Romero Limon BLOOD CULTURE, AEROBIC & 2021-05-24 22:00:00 Romero Limon [facility] ANAEROBIC CBC HEMOGRAM 2020-11-23 05:55:00 Alma Girard PROTHROMBIN TIME WITH INR 2020-11-23 05:55:00 Ting Pierson, [facility] COMPREHENSIVE METABOLIC 2020-11-23 05:55:00 Ting Pierson, [facility] PANEL [place] ESTIMATED GFR 2020-11-23 05:55:00 Alma Girard spital [facility] COVID-19 QUALITATIVE 2020-11-23 01:57:00 Wild Kovacs [facility] RT-PCR Tomiwa LACTIC ACID, I-STAT 2020-11-23 01:40:00 Romero Limon [facility] CT HEAD WO CONTRAST 2020-11-22 23:20:00 Romero Limno [facility] HC COMPLETE BLD COUNT 2020-11-22 22:53:00 Romero Limon [facility] W/AUTO DIFF COMPREHENSIVE METABOLIC 2020-11-22 22:53:00 Romero Limon [facility] PANEL LACTIC ACID, I-STAT 2020-11-22 22:53:00 Romero Limon [facility] AMMONIA LEVEL 2020-11-22 22:53:00 Romero Limon spital VENOUS BLOOD GAS 2020-11-22 22:53:00 Romero Limon H ospital ESTIMATED GFR 2020-11-22 22:53:00 Romero Limon spital XR ABDOMEN ACUTE INC CHEST 2020-11-02 22:51:00 Cliff Levy [facility] 1V ESTIMATED GFR 2020-11-02 21:55:[address] [facility] HC COMPLETE BLD COUNT 2020-11-02 21:55:00 Calos Garcia [facility] W/AUTO DIFF COMPREHENSIVE METABOLIC 2020-11-02 21:55:00 Calos Garcia [facility] PANEL PROTHROMBIN TIME WITH INR 2020-11-02 21:55:[address] [facility] COVID-19 QUALITATIVE 2020-11-02 21:05:00 [facility] BRAIN SPECT W I 123 2020-10-26 19:02:[address] [facility] DATSCAN HC COMPLETE BLD COUNT 2020-10-24 10:15:00 [facility] W/AUTO DIFF BASIC METABOLIC PANEL 2020-10-24 10:15:00 [facility] HEPATIC FUNCTION PANEL 2020-10-24 10:15:00 [facility] MAGNESIUM LEVEL 2020-10-24 10:15:00 [facility] ospital PHOSPHORUS LEVEL 2020-10-24 10:15:00 [facility] PROTHROMBIN TIME WITH INR 2020-10-24 10:15:00 [facility] HEMOGLOBIN A1C 2020-10-24 10:15:00 [facility] ospital THYROID STIMULATING 2020-10-24 10:15:00 [facility] HORMONE T4 2020-10-24 10:15:00 [facility] ospital VITAMIN D 25 HYDROXY LEVEL 2020-10-24 10:15:00 [facility] ZINC LEVEL, SERUM 2020-10-24 10:15:00 [facility] ALPHA FETOPROTEIN 2020-10-24 10:15:00 [facility] ESTIMATED GFR 2020-10-24 10:15:00 [facility] ospital URINE DRUGS OF ABUSE 2020-10-24 10:00:00 [facility] SCREEN LACTIC ACID LEVEL, SEPSIS 2020-10-24 06:20:00 [facility] - NOW AND REPEAT 2X EVERY 3 HOURS LACTIC ACID LEVEL, SEPSIS 2020-10-24 02:25:00 [facility] - NOW AND REPEAT 2X EVERY 3 HOURS XR CHEST 1 VW PORTABLE 2020-10-24 00:08:00 Rehrer, [facility] BLOOD CULTURE, AEROBIC & 2020-10-23 23:31:00 Rehrer, [facility] ANAEROBIC RESPIRATORY PATHOGEN PANEL 2020-10-23 23:31:00 Rehrer, [facility] WITH COVID-19 RT-PCR COMPREHENSIVE METABOLIC 2020-10-23 23:31:00 Rehrer, [facility] PANEL PHOSPHORUS LEVEL 2020-10-23 23:31:00 Rehrer, [facility] MAGNESIUM LEVEL 2020-10-23 23:31:00 Rehrer, [facility] LACTIC ACID LEVEL, SEPSIS 2020-10-23 23:31:00 Heriberto York [facility] - NOW AND REPEAT 2X EVERY 3 HOURS LIPASE LEVEL 2020-10-23 23:31:00 Rehrer, [facility] ESTIMATED GFR 2020-10-23 23:31:00 Rehrer, [facility] HC COMPLETE BLD COUNT 2020-10-23 23:20:00 Rehrer, [facility] W/AUTO DIFF PROTHROMBIN TIME WITH INR 2020-10-23 23:20:00 Rehrer, [facility] PARTIAL THROMBOPLASTIN 2020-10-23 23:20:00 Rehrer, [facility] TIME (PTT) AMMONIA LEVEL 2020-10-23 23:20:00 Rehrer, [facility] HC COMPLETE BLD COUNT 2020-10-10 00:05:00 [facility]FF COMPREHENSIVE METABOLIC 2020-10-10 00:05:[address] [facility] PANEL LACTIC ACID, I-STAT 2020-10-10 00:05:00 Fl[facility]erFabianRaym[facility] AMMONIA LEVEL 2020-10-10 00:05:00 Fluker [facility] ESTIMATED GFR 2020-10-10 00:05:00 Azevedo [facility] URINALYSIS 2020-10-09 23:32:00 [facility] ECG 12-LEAD 2020-10-09 23:18:11 Azevedo [facility] HC COMPLETE BLD COUNT 2020-09-21 10:28:00 [facility] W/AUTO DIFF BASIC METABOLIC PANEL 2020-09-21 10:28:00 [facility] HEPATIC FUNCTION PANEL 2020-09-21 10:28:00 [facility] MAGNESIUM LEVEL 2020-09-21 10:28:00 [facility] ospital PHOSPHORUS LEVEL 2020-09-21 10:28:00 [facility] PROTHROMBIN TIME WITH INR 2020-09-21 10:28:00 [facility] MISCELLANEOUS REFERRAL 2020-09-21 10:28:00 [facility] TEST VITAMIN B12 LEVEL 2020-09-21 10:28:00 [facility] FOLATE LEVEL 2020-09-21 10:28:00 [facility] ospital ESTIMATED GFR 2020-09-21 10:28:00 [facility] ospital COVID-19 QUALITATIVE 2020-09-20 20:51:00 [facility] RT-PCR Gabriel HC COMPLETE BLD COUNT 2020-09-20 12:08:00 [facility] W/AUTO DIFF BASIC METABOLIC PANEL 2020-09-20 12:08:00 [facility] HEPATIC FUNCTION PANEL 2020-09-20 12:08:00 [facility] MAGNESIUM LEVEL 2020-09-20 12:08:00 [facility]ital PHOSPHORUS LEVEL 2020-09-20 12:08:00 [facility] PROTHROMBIN TIME WITH INR 2020-09-20 12:08:00 [facility] HEMOGLOBIN A1C 2020-09-20 12:08:00 [facility]ital THYROID STIMULATING 2020-09-20 12:08:00 [facility] HORMONE T4 2020-09-20 12:08:00 [facility]ital VITAMIN D 25 HYDROXY LEVEL 2020-09-20 12:08:00 [facility] ZINC LEVEL, SERUM 2020-09-20 12:08:00 [facility] ALPHA FETOPROTEIN 2020-09-20 12:08:00 [facility] ESTIMATED GFR 2020-09-20 12:08:[address] [facility]spital CT CERVICAL SPINE WO 2020-09-20 06:50:26 Marcel [facility] CONTRAST [facility] PELVIS WO CONTRAST 2020-09-20 06:50:[address] [facility] [address] HEAD WO CONTRAST 2020-09-20 06:50:07 [facility] 2020-09-20 04:05:41 [facility] [place] URINE CULTURE 2020-09-20 04:00:00 Bonny Rod spital [place] URINALYSIS SCREEN AND 2020-09-20 04:00:00 Marcel [facility] MICROSCOPY, WITH REFLEX TO [place]e CULTURE URINE DRUGS OF ABUSE 2020-09-20 04:00:00 Bonny Rod [facility] SCREEN [place] MAGNESIUM LEVEL 2020-09-20 04:00:00 Bonny Rod Ho spital [place] TROPONIN 2020-09-20 04:00:00 [facility] KNEE 3 VW LEFT 2020-09-20 02:06:29 Marcel [facility] Renee XR KNEE 3 VW RIGHT 2020-09-20 02:06:09 Marcel [facility] Renee XR SHOULDER 2+ VW RIGHT 2020-09-20 02:05:46 Bonny Rod [facility] HC COMPLETE BLD COUNT 2020-09-20 02:05:00 [facility]FF [place]e PROTHROMBIN TIME WITH INR 2020-09-20 02:05:00 Bonny Rod [facility] Renee PARTIAL THROMBOPLASTIN 2020-09-20 02:05:00 [facility] [place] COMPREHENSIVE METABOLIC 2020-09-20 02:05:00 Bonny Rod [facility] PANEL [place] TROPONIN 2020-09-20 02:05:00 [facility] Rene[facility] B NATRIURETIC PEPTIDE 2020-09-20 02:05:00 Bonny Rod [facility] Renee AMMONIA LEVEL 2020-09-20 02:05:00 Bonny Rod [facility] ALCOHOL LEVEL, BLOOD 2020-09-20 02:05:00 [facility] ESTIMATED GFR 2020-09-20 02:05:00 Bonny Rod [facility] Renee Plan of Care Planned Activity Planned Date Details Comments Source Future Scheduled 2021-09-12 COLONOSCOPY SCREENING [facility] Test 12:13:11 [code = COLONOSCOPY SCREENING] Future Scheduled 2021-09-12 SHINGLES VACCINES [facility]3] Test 12:13:11 (#1) [code = SHINGLES VACCINES (#1)] Future Scheduled 2021-09-12 BREAST CANCER [facility] Test 12:13:11 SCREENING [code = BREAST CANCER SCREENING] Future Scheduled 2021-09-12 COVID-19 VACCINE (2 - [facility] Test 12:13:11 Booster for Yanira series) [code = COVID-19 VACCINE (2 - Booster for Yanira series)] Future Scheduled 2021-09-12 INFLUENZA VACCINE [facility]3] Test 12:13:11 [code = INFLUENZA VACCINE] Future Scheduled 2021-09-12 Screening for [facility] Test 12:13:11 malignant neoplasm of cervix (procedure) [code = 502491254] Future Scheduled 2021-08-[address] [facility] Test 00:00:00 (procedure) [code = [facility] [id number]] Future Scheduled [address] [facility] Test 00:00:00 [facility]ix [facility]) [code = 981974428] Future Scheduled 1980 DTAP/TDAP/TD VACCINES [facility] Test 00:00:00 (1 - Tdap) [code = Medical enter DTAP/TDAP/TD VACCINES (1 - Tdap)] Future Scheduled 1973 COVID-19 VACCINE (1) [facility] Test 00:00:00 [code = COVID-[address] VACCINE (1)] Future Scheduled [address] [facility] Test 00:00:00 [facility] breast (procedure) [code = 706009818] Future Scheduled [address] [facility] Test 00:00:00 [facility] colon (procedure) [code = 611897092] Encounters Start End Encounter Admission Attending Care Care Encounter Source Date/Time Date/Time Type Type Clinicians Facility Department ID 2021-09-06 Outpatient Man, [facility] [id number] Common 13:49:19 Fernando [id number] [facility] 2021-09-06 Outpatient Man, [facility] [id number] Common 13:45:16 Fernando [id number] [facility] 2021-09-06 Outpatient Man, [facility] [id number] Common 12:49:41 Fernando [id number] [facility] 2021-09-06 Outpatient Man, [facility] [id number] Common 12:05:14 Fernando [id number] [facility] 2021-09-06 [facility] [id number] Common 12:03:44 Fernando [id number] [facility] 2021-09-06 [facility] [id number] Common 11:42:32 Fernando [id number] [facility] 2021-09-06 [facility] [id number] Common 11:33:04 Fernando [id number] [facility] 2022-02-17 2022-02-23 Inpatient ROLANDO, [facility] [id number] [place] 00:00:00 00:00:00 PIERCE 147 Method i 2022-02-09 2022-02-09 [facility]patient [facility] [id number] [facility] 15:00:00 15:00:00 SALLY ity of [facility] 2022-02-08 2022-02-08 Orders Doctor KIRIT [id number] [facility] 00:00:00 00:00:00 Only Unassigned, MICHAEL [id number] ity of [place] [facility] [id number] Brent as [id number] [address] 2022-01-30 2022-01-30 Telephone Dashawn [facility] [id number] [facility] 00:00:00 00:00:00 [facility] [id number] it y of [facility] [id number] Brent as VAMSI?BLEA [id number] [place] [address] MEDICAL OFFICE BUILDING 2022-01-10 2022-01-10 Outpatient GALATI, [facility] [id number] [place] 00:00:00 00:00:00 CALOS [address] 2022-01-10 2022-01-10 Outpatient GALATI, [facility] [id number] [place] 00:00:00 00:00:00 CALOS Sotelo [facility] 2021-11-30 2021-11-30 ambulatory STLMLC STLMLC [id number] Common 00:00:00 00:00:00 [facility] 2021-11-16 2021-11-16 Office HERMELINDA Thompson [id number] [facility] 13:30:00 14:32:33 Visit Luisana PORRAS [id number] i ty of [place] [id number] Brentbrendon nafisa SKINNER [id number] [place] dical [address] 2021-10-27 2021-11-04 Inpatient [facility] [id number] [place] 00:00:00 00:00:00 Ava PIERSON i [facility] 2021-10-16 2021-10-16 ambulatory STLMLC STLMLC [id number] Common 00:00:00 00:00:00 [facility] 2021-10-13 2021-10-13 ambulatory STLMLC STLMLC [id number] Common 00:00:00 00:00:00 [facility] 2021-09-25 2021-09-25 ambulatory STLMLC STLMLC [id number] Common 00:00:00 00:00:00 [facility] 2021-09-01 2021-09-16 Inpatient ER RAFAEL, [facility] [id number] [facility] 22:15:00 12:13:00 KENDY 2021-09-04 2021-09-04 ambulatory STLMLC STLMLC [id number] Common 00:00:00 00:00:00 [facility] 2021-09-01 2021-09-01 Documentat Silvio, [facility] [id number] [facility] 00:00:00 00:00:00 ion [facility] 2021-09-01 2021-09-01 Telephone Cristofer [id number] Methodi 00:00:00 00:00[place] [place] [id number] [facility] [id number] Hospit a [id number] l .8 2021-08-30 2021-08-31 Emergency ADALI, [facility] 064 [id number] [place] 00:00:00 00:00:00 MOISES [address] 2021-08-30 2021-08-30 Travel 1.2.840.1 1.2.511.048 8077 [id number] Methodi 00:00:00 00:00:[address] 3.430.2.7 0.2.7.3.698 Ho spita .3.421485 084.8 l .8 2021-08-29 2021-08-29 [facility] [id number] [place] 00:00:00 00:00:00 CALOS [address] 2021-08-29 2021-08-29 Travel 1.2.840.1 1.2.221.805 9989 [id number] Methodi 00:00:00 00:00:[address] 3.430.2.7 0.2.7.3.698 Ho spita .3.196231 084.8 l .8 2021-08-25 2021-08-25 Travel 1.2.840.1 1.2.960.582 8743 [id number] Methodi 00:00:00 00:00:[address] 3.430.2.7 0.2.7.3.698 Ho spita .3.649921 084.8 l .8 2021-08-17 2021-08-25 [facility] [id number] 21 [id number] [place] 00:00:00 00:00:00 Encounter 73741.1.1 [address] .3.802787 .8 2021-08-24 2021-08-24 Surgery [facility], 1.2.840.1 [id number] 76781 Methodi 09:00:00 10:25:[address] 3.430.2.7 Hospit a .3.981500 l .8 2021-08-24 2021-08-24 Documentat Delcano, 1.2.840.1 [id number] 21 [id number] Methodi 00:00:00 00:00:00 lupillo [place] [address]1572.[address] Matthew 3.430.2.7 Hospit a .3.755466 l .8 2021-08-23 2021-08-23 Documentat Delcano, 1.2.840.1 [id number] 21 [id number] Methodi 00:00:00 00:00:00 lupillo [place] [address] Matthew 3.430.2.7 Hospit a .3.056073 l .8 2021-08-21 2021-08-21 Social Jaimes, 1.2.840.1 [id number] 078 [id number] Methodi 12:37:39 13:37:39 Work Kirit 32038.1.[address] 3.430.2.7 Hospit a .3.944663 l .8 2021-08-21 2021-08-21 Documentat Ltac, Located Within [facility], 1.2.840.1 [id number] 21 [id number] Methodi 00:00:00 00:00:00 lupillo [place] [address]36.[address] Matthew 3.430.2.7 Hospit a .3.461682 l .8 2021-08-21 2021-08-21 Telephone Pops, 1.2.840.1 [id number] 2100 [id number] Methodi 00:00:00 00:00:[address] 3.430.2.7 Hospit a .3.099021 l .8 2021-08-18 2021-08-18 Travel 1.2.840.1 1.2.332.905 0460 966903 Methodi 00:00:00 00:00:[address] 3.430.2.7 0.2.7.3.698 Ho spita .3.555804 084.8 l .8 2021-08-10 2021-08-11 Emergency Adali, 1.2.840.1 [id number] 2 [id number] Methodi 20:25:00 01:30:[address] Rylee 3.430.2.7 Ho spita .3.809947 l .8 2021-08-10 2021-08-10 Travel 1.2.840.1 1.2.382.039 0821 396610 Methodi 00:00:00 00:00:[address] 3.430.2.7 0.2.7.3.698 Ho spita .3.229416 084.8 l .8 2021-07-28 2021-07-28 ambulatory STLMLC STLMLC [id number] Common 00:00:00 00:00:00 [facility] 2021-07-25 2021-07-25 Telephone Stephanie, 1.2.840.1 [id number] [id number] Methodi 00:00:00 00:00:[address] 3.430.2.7 Hospit a .3.131037 l .8 2021-07-24 2021-07-24 Telephone Pops, 1.2.840.1 [id number] 2100 [id number] Methodi 00:00:00 00:00:[address] 3.430.2.7 Hospit a .3.047588 l .8 2021-07-12 2021-07-12 ambulatory STLMLC STLMLC [id number] Common 00:00:00 00:00:00 [facility] 2021-06-29 2021-06-29 Travel 1.2.840.1 1.2.832.832 1147 [id number] Methodi 00:00:00 00:00:[address] 3.430.2.7 0.2.7.3.698 Ho spita .3.143809 084.8 l .8 2021-06-28 2021-06-28 [place] [id number] [place] [address] 00:00:00 00:00:00 ROMERO [address] 2021-06-22 2021-06-22 Behavioral John, 1.2.840.1 [id number] 785 [id number] Methodi 00:00:00 00:00:00 Health Kaleb 97428.1.[address] Johnny 3.430.2.7 Hospit a .3.955410 l .8 2021-06-18 2021-06-21 [facility], 1.2.840.1 [id number] [place] 00:00:00 00:00:00 Encounter PIERCE 84727.1.1 [address] .3.328828 .8 2021-06-18 2021-06-18 Travel 1.2.840.1 1.2.837.104 3826 635192 Methodi 00:00:00 00:00:[address] 3.430.2.7 0.2.7.3.698 Ho spita .3.178943 084.8 l .8 2021-06-16 2021-06-16 [facility], 1.2.840.2 [id number] Methodi 00:00:00 00:00:00 Only Eusebia Zulma 23372.1.[address] 3.430.2.7 Hospit a .3.894064 l .8 2021-06-08 2021-06-08 Clinical 1.2.840.1 [id number] 74 Methodi 12:04:06 13:04:[address] 3.430.2.7 Hospit a .3.228354 l .8 2021-06-05 2021-06-05 Telephone John, 1.2.840.1 [id number] Methodi 00:00:00 00:00:[address] Johnny 3.430.2.7 Hospit a .3.900862 l .8 2021-05-31 2021-06-02 [facility] [place], 1.2.840.1 [id number] 237 [id number] [place] 00:00:00 00:00:00 Encounter HERIBERTO 39111.1.1 [address] .3.329063 .8 2021-05-31 2021-05-31 Travel 1.2.840.1 1.2.757.690 9759 468408 Methodi 00:00:00 00:00:[address] 3.430.2.7 0.2.7.3.698 Ho spita .3.253725 084.8 l .8 2021-05-24 2021-05-27 [facility] 012 [id number] 53 [place] 00:00:00 00:00:00 Encounter [facility] [address] 2021-05-24 2021-05-24 Travel 1.2.840.1 1.2.725.467 4135 292000 Methodi 00:00:00 00:00:[address] 3.430.2.7 0.2.7.3.698 Ho spita .3.989072 084.8 l .8 2021-05-23 2021-05-23 Outpatient STLMLC STLMLC [id number] Common 00:00:00 00:00:00 [facility] 2021-05-19 2021-05-19 Outpatient STLMLC STLMLC [id number] Common 00:00:00 00:00:00 [facility] 2021-05-01 2021-05-01 Outpatient STLMLC STLMLC [id number] Common 00:00:00 00:00:00 [facility] 2021-04-26 2021-04-26 Outpatient STLMLC STLMLC [id number] Common 00:00:00 00:00:00 [facility] 2021-04-26 2021-04-26 Outpatient STLMLC STLMLC [id number] Common 00:00:00 00:00:00 [facility] 2021-04-26 2021-04-26 Outpatient STLMLC STLMLC [id number] Common 00:00:00 00:00:00 [facility] 2021-01-13 2021-01-13 Outpatient STLMLC STLMLC [id number] Common 00:00:00 00:00:00 [facility] 2020-12-13 2020-12-13 Outpatient STLMLC STLMLC [id number] Common 00:00:00 00:00:00 [facility] 2020-11-28 2020-11-28 Patient [place], 1.2.840.1 [id number] Methodi 00:00:00 00:00:00 Outreach Bia 89279.1.[address] 3.430.2.7 Hospit a .3.973869 l .8 2020-11-25 2020-11-25 Patient Cynthiat, 1.2.840.1 [id number] 00666 Methodi 00:00:00 00:00:00 Outreach Bia 45024.1.[address] 3.430.2.7 Hospit a .3.257656 l .8 2020-11-24 2020-11-24 Patient Cynthiat, 1.2.840.1 [id number] 17481 Methodi 00:00:00 00:00:00 Outreach Bia 50773.1.[address] 3.430.2.7 Hospit a .3.085203 l .8 2020-11-22 2020-11-23 Emergency Wild Kovacs 1.2.840. 1 [id number] Methodi 17:29:00 16:26:[address]1.[address] 3.430.2.7 Hospit a .3.281847 l .8 2020-11-22 2020-11-22 Travel 1.2.840.1 1.2.266.688 1163 082238 Methodi 00:00:00 00:00:[address] 3.430.2.7 0.2.7.3.698 spita .3.113921 084.8 l .8 2020-11-17 2020-11-17 Outpatient STLMLC STLMLC [id number] Common 00:00:00 00:00:00 [facility] 2020-11-02 2020[facility]-02 [id number] Methodi 16:45:00 23:59:00 Encounter Calos Garcia 71730.1.[address] 3.430.2.7 Hospit a .3.458281 l .8 2020-11-02 2020-11-02 Lab Jose 1.2.840.1 [id number] 6621 Methodi 16:00:31 16:05:31 Calos Feng 45460.1.[address] 3.430.2.7 Hospit a .3.817322 l .8 2020-11-02 2020-11-02 Travel 1.2.840.1 1.2.446.137 0847 [id number] Methodi 00:00:00 00:00:[address] 3.430.2.7 0.2.7.3.698 Ho spita .3.318779 084.8 l .8 2020-10-26 2020-10-26 [facility], 1.2.840.1 [id number] 149 [id number] Methodi 12:51:36 23:59:00 Encounter Cliff Marion 29364.1.[address] 3.430.2.7 Hospit a .3.027998 l .8 2020-10-26 2020-10-26 [facility], 1.2.840.1 [id number] 969 [id number] Methodi 08:10:06 12:50:00 Encounter Cliff Marion 58213.1.[address] 3.430.2.7 Hospit a .3.199560 l .8 2020-10-26 2020-10-26 Travel 1.2.840.1 1.2.609.385 7802 [id number] Methodi 00:00:00 00:00:[address] 3.430.2.7 0.2.7.3.698 Ho spita .3.896220 084.8 l .8 2020-10-23 2020-10-24 [facility].2.840[facility]1 104 [id number] Methodi 17:57:00 14:46:00 Encounter Heriberto [place] 79796.1.[address] Baylee Girard 3.430.2.7 [facility] Pierce Cisneros .3.991770 l .8 2020-10-13 2020-10-13 Travel 1.2.840.1 1.2.111.961 8057 406745 Methodi 00:00:00 00:00:[address] 3.430.2.7 0.2.7.3.698 Ho spita .3.512885 084.8 l .8 2020-10-12 2020-10-12 Transcribe Mildred, 1.2.840.1 [id number] 2 [id number] Methodi 00:00:00 00:00:00 Orders Cliff Marion 20174.1.[address] 3.430.2.7 Hospit a .3.349528 l .8 2020-10-11 2020-10-11 Outpatient STLMLC STLMLC [id number] Common 00:00:00 00:00:00 [facility] 2020-10-09 2020-10-09 Emergency [place], 1.2.840.1 [id number] [id number] Methodi 16:28:00 19:29:[address] Gus 3.430.2.7 Hospit a .3.018089 l .8 2020-10-03 2020-10-03 Outpatient STLMLC STLMLC [id number] Common 00:00:00 00:00:00 [facility] 2020-09-19 2020-09-21 [facility] Robby Gabriel 1.2.840.1 [id number] Methodi 16:55:00 14:27:00 Encounter Heriberto [place] 94846.1.[address] Jennifer hGosh 3.430.2.7 Hos lis .3.022049 l .8 2020-09-15 2020-09-15 Transcribe Jose, 1.2.840.1 [id number] 066 [id number] Methodi 00:00:00 00:00:00 Orders Calos NafisaLaurel 09862.1.[address] 3.430.2.7 Hospit a .3.028978 l .8 2020-09-14 2020-09-14 Outpatient STLMLC STLMLC [id number] Common 00:00:00 00:00:00 [facility] 2020-08-31 2020-09-02 Inpatient GARRETAKAChristiana, [facility] [id number] [place] 00:00:00 00:00:00 PIERCE [address] 2020-08-10 2020-08-13 Inpatient CHELA, [facility] 012 [id number] [place] 00:00:00 00:00:00 HERIBERTO [address] 2020-08-09 2020-08-09 Emergency NUSZEN, [facility] 064 [id number] 75 [place] 00:00:00 00:00:00 ROMERO [address] 2020-08-08 2020-08-08 Emergency WEIBEL, [facility] 064 [id number] 08 [place] 00:00:00 00:00:00 NOBLE [address] 2020-07-27 2020-07-27 Outpatient STLMLC STLMLC [id number] Common 00:00:00 00:00:00 [facility] 2020-07-18 2020-07-18 Outpatient [facility] [id number] [place] 00:00:00 00:00:[address] 2020-07-04 2020-07-07 Inpatient JENNIFER GHOSH [facility] [id number] [id number] [place] 00:00:00 00:00:[address] 2020-06-28 2020-06-28 Outpatient STLMLC STLMLC [id number] Common 00:00:00 00:00:00 [facility] 2020-06-20 2020-06-20 Outpatient STLMLC STLMLC [id number] Common 00:00:00 00:00:00 [facility] 2020-05-30 2020-06-03 Inpatient JENNIFER GHOSH [facility] 064 [id number] [place] 00:00:00 00:00:00 431 Method i 2020-05-27 2020-05-27 Outpatient YALAMANCHIL [facility] [id number] [place] 00:00:00 00:00:00 YIFAN Torres 752 Meth erasto 2020-05-20 2020-05-20 Outpatient STLMLC STLMLC [id number] Common 00:00:00 00:00:00 [facility] 2020-05-13 2020-05-17 Inpatient MCCARTAN, [facility] [id number] [place] 00:00:00 00:00:00 MERCY 422 Method i 2020-04-13 2020-04-21 Inpatient YOJANA, [facility] 064 [id number] [place] 00:00:00 00:00:00 JUNO 459 Method i 2020-04-13 2020-04-13 [facility] [id number] Common 16:02:00 16:02:[address] [facility] 2020-04-13 2020-04-13 Out[facility] [id number] Common 09:33:00 09:33:[address] [facility] 2020-04-05 2020-04-05 Out[facility] [id number] Common 09:10:00 09:10:[address] [facility] 2020-04-04 2020-04-04 Outpatient [facility] [id number] Common 10:58:00 10:58:[address] [facility] 2020-04-04 2020-04-04 Outpatient [facility] [id number] Common 10:00:00 10:00:[address] [facility] 2020-03-17 2020-03-19 Inpatient TING [facility] 064 [id number] [place] 00:00:00 00:00:00 DANGELO, 082 Method i BAYLEE 2020-03-16 2020-03-16 Out[facility] [id number] Common 11:12:00 11:12:[address] [facility] 2020-03-14 2020-03-14 Outpatient JACQUELIN, [facility] [id number] [place] 00:00:00 00:00:00 AHMED 426 Method i 2020-03-10 2020-03-10 Outpatient [facility] [id number] Common 13:18:00 13:18:[address] [facility] 2020-03-07 2020-03-07 Outpatient [facility] [id number] Common 16:07:00 16:07:[address] [facility] 2020-03-04 2020-03-04 Outpatient [facility] 30 [id number] Common 11:00:00 11:00:[address] [facility] 2020-03-04 2020-03-04 Outpatient [facility] 30 [id number] Common 11:00:00 11:00:[address] [facility] 2020-03-04 2020-03-04 Outpatient MEAGAN, [facility] [id number] [place] 00:00:00 00:00:00 JAYASIMHA 578 Meth erasto 2020-02-18 2020-02-21 Inpatient YORK, [facility] 064 [id number] [place] 00:00:00 00:00:00 HERIBERTO 304 Method i 2020-01-18 2020-01-20 Inpatient DINAKAR, [facility] [id number] [place] 00:00:00 00:00:00 PIERCE 881 Method i 2020-01-07 2020-01-11 Inpatient YORK, [facility] 064 [id number] [place] 00:00:00 00:00:00 HERIBERTO 087 Method i 2019-12-29 2019-12-29 Out[facility] [id number] Common 07:03:00 07:03:[address] [facility] 2019-12-23 2019-12-25 Inpatient TING [facility] 064 [id number] [place] 00:00:00 00:00:00 PIERSON, 540 Method i BAYLEE 2019-12-23 2019-12-23 Outpatient JACQUELIN, [facility] [id number] [place] 00:00:00 00:00:00 AHMED 960 Method i 2019-12-22 2019-12-22 [facility] 1.2.840.114 [id number] 14:08:03 14:56:41 Visit [facility] 350.1.13.10 Surgical 4.2.7.2.686 Specialti [id number] es 198 [place] 2019-10-12 2019-10-15 Inpatient YORK, [facility] 012 [id number] [place] 00:00:00 00:00:00 HERIBERTO 906 Method i 2019-09-01 2019-09-03 Inpatient YORK, [facility] [id number] [place] 00:00:00 00:00:00 HERIBERTO 637 Method i 2019-07-20 2019-07-20 [facility] [id number] Common 14:02:00 14:02:[address] [facility] 2019-07-16 2019-07-16 Outpatient [facility] [id number] Common 13:15:00 13:15:[address] [facility] 2019-06-16 2019-06-18 Inpatient YORK, [facility] [id number] [place] 00:00:00 00:00:00 HERIBERTO 382 Method i 2019-05-07 2019-05-08 Outpatient DARCY, UMAR [facility] [id number] [place] 00:00:00 00:00:00 691 Method i 2019-04-23 2019-04-23 Outpatient GALATI, [facility] [id number] [place] 00:00:00 00:00:00 CALOS 089 Method i 2019-04-23 2019-04-23 Outpatient JACQUELIN Isrrael [facility] [id number] [place] 00:00:00 00:00:00 THOMASCHAVA [address] 2019-04-15 2019-04-15 Outpatient [facility] [id number] Common 14:19:00 14:19:[address] [facility] 2019-04-09 2019-04-09 Outpatient [facility] [id number] Common 14:00:00 14:00:[address] [facility] 2018-09-09 2018-09-09 Outpatient [facility] [id number] Common 14:45:00 14:45:[address] [facility] 2018-04-15 2018-04-15 Outpatient [facility] [id number] Common 12:02:00 12:02:[address] [facility] 2018-02-19 2018-02-19 Outpatient [facility] [id number] Common 15:08:00 15:08:[address] [facility] 2018-01-24 2018-01-24 Outpatient [facility] [id number] Common 11:15:00 11:15:[address] [facility] Results Test Description Test Time Test Comments Results Result Comments Source SARS-CoV-2 (COVID-19) RNA [Presence] in Respiratory sp ecimen by 2022-02-17 16:50:47 GUSTAVO with probe detection Test Item Value Reference Range Interpretation Comme nts SARS-CoV-2 (COVID-19) RNA [Presence] in Respiratory specimen by Not detected GUSTAVO with probe detection (test code = 08362-0) 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 : 1960 Sex: FCLINICAL INDICATIO N: K50.90, Crohns disease, unspecified, without complications K92.1, Melena R19.4, Change in bowel habitMODALITY: SPARQCode 3T MRITECHNIQUE: Parallel imaging is accomplished using T2, in-phase, hez-dk-pgxpi, and breath-holding sequences. MR enterography techniques are utilized. Post-processing is acco mplished. Imaging is performed without and with IV contrast. Imaging of the abdomen and pelvis are performed, 15 ml Dotarem.IMPRESSION:1. Mural thickening demonstrated within the sigmoid colon with mild contrast enhancement suggesting active Crohn's colitis. No additional manifestations or small bowelinvolvement currently suspected.2. Hepatocellular disease with patent portacaval shunt and mild splenomegaly.3. Bilateral renal cysts.FINDINGS:Comparison: noneLung bases are clear. No pleural fluid is seen.The liver appears is small, mildly lobular in contour consistent with underlying hepatocellular disease. Note is made of a portacaval shunt. No masses or evidence of biliary dilatation. Gallbladder appears unremarkable. The spleen is mildly enlarged with a vertical diameter of 12.7 cm. The stomachappears unremarkable.Pancreas is morphologically normal. No mass, pancreatic duct dilatation or peripancreatic edema is visible.Adrenal glands and kidneys are morphologically normal. 4.8 x 4.1 cm left mid pole renal cyst is visible. Additional sub centimeter cortical cysts are noted bilaterally. No hydronephrosis. Neither retrocrural nor retroperitoneal lymph nodes are seen. No retroperitoneal mass is present.Abdominal wall is intact. No evidence of ascites.No evidence of bowel mass, mural thickening or pericolic edema.Osseous structures are not remarkable.Dynamic postcontrast enhanced imaging is performed. Postsurgical changes are demonstrated within the right lower quadrant suggesting previous resection of the terminal ileum. Currently no mural thickening is demonstrated. No small bowel dilatation is identified. No mural enhancement is seen. The colon is fluid-filled. There is evidence of mural thickening within the sigmoid colon primarily. Mild degree of enhancement only is noted.Uterus is anteverted. No adnexal mass. No pelvic or inguinal lymph nodes. No mural or intraluminal bladder mass.HEPATITIS B SURFACE ANTIGEN 2022-01-23 23:01:06 Test Item Value Reference Range Interpretation Comments HEPATITIS B SURFACE ANTIGEN (2) Nonreactive Nonreactive (BEAKER) (test code = 2585) Specimen is considered negative for HBsAg.HEPATITIS B CORE ANTIBODY, IGM 2022-01-23 23:01:06 Test Item Value Reference Range Interpretation Comments HEPATITIS B CORE IGM ANTIBODY Nonreactive Nonreactive (BEAKER) (test code = 645) Booth Cashier ID - ADMINHEPATITIS C [id number] 23:01:06 Test Item Value Reference Range Interpretation Comments HEPATITIS C ANTIBODY (BEAKER) Nonreactive Nonreactive (test code = 367) Booth Cashier ID - ADMINHEPATITIS A ANTIBODY, [id number] 23:01:06 Test Item Value Reference Range Interpretation Comments HEPATITIS A IGM ANTIBODY (BEAKER) Nonreactive Nonreactive (test code = 498) Booth Cashier ID - [id number] (COVID-19) RNA [Presence] in Respiratory specimen by GUSTAVO with probe [id number] 04:55:57 Test Item Value Reference Range Interpretation Comments SARS-CoV-2 (COVID-19) RNA Not detected [Presence] in Respiratory specimen by GUSTAVO with probe detection (test code = 30669-4) 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 employed in a Unknown healthcare setting (test code = 04151-8) Whether the patient has symptoms Unknown related to condition of interest (test code = 68379-3) Whether the patient was Unknown hospitalized for condition of interest (test code = 03466-3) Whether the patient was admitted Unknown to intensive care unit (ICU) for condition of interest (test code = 25164-3) Whether patient resides in a Unknown congregate care setting (test code = 11629-5) status (test code = Unknown 79551-9) Date and time of symptom onset Unknown (test code = 43226-9) SARS-CoV-2 (COVID-19) RNA [Presence] in Respiratory specimen by GUSTAVO with probe [id number] 01:48:29 Test Item Value Reference Range Interpretation Comments SARS-CoV-2 (COVID-19) RNA Not detected [Presence] in Respiratory specimen by GUSTAVO with probe detection (test code = 83900-6) 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 employed in a Unknown healthcare setting (test code = 54207-4) Whether the patient has symptoms Unknown related to condition of interest (test code = 19793-6) Whether the patient was Unknown hospitalized for condition of interest (test code = 04854-8) Whether the patient was admitted Unknown to intensive care unit (ICU) for condition of interest (test code = 46083-7) Whether patient resides in a Unknown congregate care setting (test code = 79417-3) status (test code = Unknown 16278-6) Date and time of symptom onset Unknown (test code = 51443-1) CT, [id number] 08:50:00Unlisted Reason for Exam - Click Yes and Enter Reason Below->YesUnlisted Reason for Exam->diarrhea. abdominal pain. C dif colitis.Is this for enterography?->NoWill this procedure require oral c ontrast?->NoLALITA [facility] : 1960 Sex: FFINAL REPORT CT abdomen and pelvis without contrast History: Diarrhea and abdominal pain Comparison: 09/04/2021 Technique: serial axial imaging was performed without intravenous contrast as perdepartmental protocol. Multiplanar images are reconstructed and reviewed [...] shunt is noted, the patency of which is not assessed on thisnoncontrast exam. Mild splenomegaly. Absent gallbladder. Punctate bilateral nonobstructing nephrolithiasis. No evidence of hydronephrosis. A cyst within the left kidney measures 4.7 cm in size and requires no further imaging follow-up. Persistent diffuse thickening of the colon, with probable slight im provement from prior exam. No pneumatosis or free air is seen. No fluid collection is identified. Nofindings to indicate acute appendicitis. Small volume ascites. Previous ventral hernia repair, whichappears intact. No aggressive osseous lesion. Impression: 1. Pancolitis, with probable slight improvement from prior exam.2. Cirrhosis, small volume ascites, mild splenomegaly.3. Small right pleural effusion. Signed: Quentin Sims MDReport Verified Date/Time: 09/15/2021 08:50:57 BASIC METABOLIC [id number] 07:34:36 Test Item Value Reference Range Interpretation [...] S NOT APPLICABLE FOR DIALYSIS PATIEN TS. Booth Cashier ID - EOSpecimen moderately ictericHEPATIC FUNCTION [id number] 07:29:08 Test Item Value Reference Range Interpretation [...] Specimen slightly (test code = 347) hemolyzed Booth Cashier ID - EOSpecimen moderately ictericPROTHROMBIN [id number] 06:46:58 Test Item Value Reference Range Interpretation Comments PROTIME (BEAKER) 22.1 seconds 11.9-14.2 H (test code = 759) INR (BEAKER) (test 1.96 See_Comment [Automat ed message] code = 370) The system [employer] generated this result transmitted ref erence range: <=5.90. The reference range was not used to int erpret this result as normal/abnormal . RECOMMENDED COUMADIN/WARFARIN INR THERAPY RANGESSTANDARD DOSE: 2.0 - 3.0 Includes: PROPHYLAXIS for venous thrombosis, systemic embolization; TREATMENT for venous thrombosis and/or pulmonary embolus.HIGH RISK: Target INR is 2.5-3.5 for patients with mechanical heart valves.CBC W/PLT COUNT & AUTO [id number] 06:38:55 Test Item Value Reference Range Interpretation [...] = 2801) CBC W/PLT COUNT & AUTO [id number] 10:18:58 Test Item Value Reference Range Interpretation [...] (BEAKER) (test code = 2801) BASIC METABOLIC [id number] 08:06:00 Test Item Value Reference Range Interpretation [...] S NOT APPLICABLE FOR DIALYSIS PATIEN TS. Booth Cashier ID - PIAYA LSpecimen moderately ictericHEPATIC FUNCTION [id number] 08:06:00 Test Item Value Reference Range Interpretation [...] (test code = 19 U/L 6-55 347) Booth Cashier ID - MARLON Ferrera moderately ictericPROTHROMBIN TIME/[id number] 07:51:15 Test Item Value Reference Range Interpretation Comments PROTIME (BEAKER) 20.6 seconds 11.9-14.2 H (test code = 759) INR (BEAKER) (test 1.80 See_Comment [Automat ed message] code = 370) The system [employer] generated this result transmitted ref erence range: <=5.90. The reference range was not used to int erpret this result as normal/abnormal . RECOMMENDED COUMADIN/WARFARIN INR THERAPY RANGESSTANDARD DOSE: 2.0 - 3.0 Includes: PROPHYLAXIS for venous thrombosis, systemic embolization; TREATMENT for venous thrombosis and/or pulmonary embolus.HIGH RISK: Target INR is 2.5-3.5 for patients with mechanical heart valves.HEPATIC FUNCTION [id number] 07:41:30 Test Item Value Reference Range Interpretation [...] (test code = 21 U/L 6-55 347) Booth Cashier ID - MARLON Ferrera moderately ictericBASIC METABOLIC [id number] 07:41:29 Test Item Value Reference Range Interpretation [...] 697) EGFR (BEAKER) (test 80 mL/min/1.73 ESTIMA BRARON GFR IS code = 1092) sq m NOT ACCURATE CREATININE CLEARANCE IN PREDICTING GLOMERULAR FILTRATION RATE . ESTIMATED GFR I S NOT APPLICABLE FOR DIALYSIS PATIEN TS. Booth Cashier ID - PIAYA LSpecimen moderately ictericPROTHROMBIN TIME/[id number] 07:34:58 Test Item Value Reference Range Interpretation Comments PROTIME (BEAKER) 19.3 seconds 11.9-14.2 H (test code = 759) INR (BEAKER) (test 1.66 See_Comment [Automat ed message] code = 370) The system [employer] generated this result transmitted ref erence range: <=5.90. The reference range was not used to int erpret this result as normal/abnormal . RECOMMENDED COUMADIN/WARFARIN INR THERAPY RANGESSTANDARD DOSE: 2.0 - 3.0 Includes: PROPHYLAXIS for venous thrombosis, systemic embolization; TREATMENT for venous thrombosis and/or pulmonary embolus.HIGH RISK: Target INR is 2.5-3.5 for patients with mechanical heart valves.CBC W/PLT COUNT & AUTO [id number] 07:30:35 Test Item Value Reference Range Interpretation [...] PERCENT (BEAKER) (test code = 2801) VITAMIN [id number] 07:00:04 Test Item Value Reference Range Interpretation Comments VITAMIN B12 (BEAKER) (test code = > pg/mL 213-816 H 774) Booth Cashier ID - ZAC WBASIC METABOLIC [id number] 06:43:51 Test Item Value Reference Range Interpretation [...] S NOT APPLICABLE FOR DIALYSIS PATIEN TS. Booth Cashier ID - ZAC WOperator ID - MARLON LSpecimen slightly ictericVITAMIN D, 78-[id number] 05:27:33 Test Item Value Reference Range Interpretation Comments VITAMIN D 25-OH (BEAKER) (test code 4.4 ng/mL 6.6-49.9 L = 2764) Effective 05/22/2017: Reference Range ChangeNew: 6.6-49.9 ng/mL Previous: 13.0- 47.8 ng/mLRecommendedVitamin D Target Range: 30.0-40.0 ng/mLOperator ID Ajay MASON LC-REACTIVE [id number] 05:23:46 Test Item Value Reference Range Interpretation Comments C-REACTIVE PROTEIN (BEAKER) (test 1.00 mg/dL 0.00-0.50 H code = 676) Booth Cashier ID - ZAC [id number] 05:23:45 Test Item Value Reference Range Interpretation Comments MAGNESIUM (BEAKER) (test code = 1.6 mg/dL 1.6-2.6 627) Booth Cashier ID - ZAC WHEPATIC FUNCTION [id number] 05:23:45 Test Item Value Reference Range Interpretation [...] (test code = 17 U/L 6-55 347) Booth Cashier ID - ZAC Rosales slightly ictericPROTHROMBIN TIME/[id number] 04:53:27 Test Item Value Reference Range Interpretation Comments PROTIME (BEAKER) 22.4 seconds 11.9-14.2 H (test code = 759) INR (BEAKER) (test 2.00 See_Comment [Automat ed message] code = 370) The system [employer] generated this result transmitted ref erence range: <=5.90. The reference range was not used to int erpret this result as normal/abnormal . RECOMMENDED COUMADIN/WARFARIN INR THERAPY RANGESSTANDARD DOSE: 2.0 - 3.0 Includes: PROPHYLAXIS for venous thrombosis, systemic embolization; TREATMENT for venous thrombosis and/or pulmonary embolus.HIGH RISK: Target INR is 2.5-3.5 for patients with mechanical heart valves.CBC W/PLT COUNT & AUTO [id number] 04:49:49 Test Item Value Reference Range Interpretation [...] (BEAKER) (test code = 2801) Basic Metabolic [id number] 08:26:03 Test Item Value Reference Range Interpretation Comments Sodium (test code = 137 meq/L 544-678 3792-2) Potassium (test code 3.5 meq/L 3.5-5.1 = 2823-3) Chloride (test code = 109 meq/L 98-107 H 2074-0) CO2 (test code = 24 meq/L 22-29 2027-9) BUN (test code = 13 mg/dL 7-21 3094-0) Creatinine (test code 0.73 mg/dL 0.57-1.25 = 2160-0) Glucose (test code = 85 mg/dL 70-105 2345-7) Calcium (test code = 7.7 mg/dL 8.4-10.2 L 32902-9) EGFR (test code = 81 mL/min/1.73 [place] [address]-9) NOT ACCURATE CREATININE CLEARANCE IN PREDICTING GLOMERULAR FILTRATION RATE . ESTIMATED GFR I S NOT APPLICABLE FOR DIALYSIS PATIENTS. REJI (test code = REJI) Booth Cashier ID - MARLON [place] ID - DBSpecimen slightly icteric Lab Interpretation Abnormal (test code = 41778-7) [facility] MET[facility]OL[facility] [id number] 08:26:03 Test Item Value Reference Range Interpretation [...] S NOT APPLICABLE FOR DIALYSIS PATIEN TS. Booth Cashier ID - MARLON [place] ID - DBSpecimen slightly ictericHepatic function [id number] 07:24:45 Test Item Value Reference Range Interpretation Comments Protein, Total (test 4.9 See_Comment L [Autom ated code = 2885-2) message] The system which generated this result transmitted reference range : 6.0 - 8.3 gm/dL . The reference range was not used to interpr et this result as normal/abnormal . Albumin (test code = 2.2 g/dL 3.5-5.0 L 96644-0) Total Bilirubin (test 4.0 mg/dL 0.2-1.2 H code = 1975-2) Bilirubin, Direct 1.5 mg/dL 0.1-0.5 H (test code = 1968-7) Alkaline Phosphatase 111 U/L 40-150 (test code = 6768-6) AST (test code = 53 U/L 5-34 H 1920-8) ALT (test code = 17 U/L 6-55 1742-6) REJI (test code = RJEI) Booth Cashier ID - MARLON Ferrera slightly icteric Lab Interpretation Abnormal (test code = 05378-9) [facility] 07:24:45 Test Item Value Reference Range Interpretation Comments Magnesium (test code = 1.7 mg/dL 1.6-2.6 51615-3) REJI (test code = REJI) Booth Cashier ID Ajay MASON L Lab Interpretation (test Normal code = 00392-0) [facility]2022-01-31 07:24:45 Test Item Value Reference Range Interpretation Comments MAGNESIUM (BEAKER) (test code = 1.7 mg/dL 1.6-2.6 627) Booth Cashier ID - MARLON LHEPATIC FUNCTION [id number] 07:24:45 Test Item Value Reference Range Interpretation [...] (test code = 17 U/L 6-55 347) Booth Cashier ID Ajay Ferrera slightly ictericProthrombin time/[id number] 06:40:57 Test Item Value Reference Interpretation Comments [...] valves. Lab Interpretation Abnormal (test code = 99677-5) [facility] HospitalPROT[facility]/[id number] 06:40:57 Test Item Value Reference Range Interpretation Comments PROTIME (BEAKER) 22.5 seconds 11.9-14.2 H (test code = 759) INR (BEAKER) (test 2.01 See_Comment [Automat ed message] code = 370) The system [employer] generated this result transmitted ref erence range: <=5.90. The reference range was not used to int erpret this result as normal/abnormal . RECOMMENDED COUMADIN/WARFARIN INR THERAPY RANGESSTANDARD DOSE: 2.0 - 3.0 Includes: PROPHYLAXIS for venous thrombosis, systemic embolization; TREATMENT for venous thrombosis and/or pulmonary embolus.HIGH RISK: Target INR is 2.5-3.5 for patients with mechanical heart valves.CBC with platelet count + automated [id number] 06:36:06 Test Item Value Reference Range Interpretation Comments WBC (test code = 6690-2) 10.6 See_Comment H [A utomated message] The system [employer] generated this result transmitted ref erence range: 3.5 - 10 .5 K/L. The refe rence range was not u sed to interpret this result as normal/abnor mal. RBC (test code = 789-8) 2.76 See_Comment L [Au tomated message] The system [employer] generated this result transmitted ref erence range: 3.93 - 5 .22 M/L. The refe rence range was not u sed to interpret this result as normal/abnor mal. MCHC (test code = 786-4) 31.5 See_Comment L [A utomated message] The system [employer] generated this result transmitted ref erence range: [...] L [Aut omated message] 777-3) The system [employer] generated this result transmitted ref erence range: 150 - 45 0 K/CU MM. The referen ce range was not u sed to interpret this result as normal/abnor mal. MPV (test code = 9.6 fL 9.4-12.3 42212-0) nRBC (test code = 413) 0 See_Comment [Aut omated message] The system [employer] generated this result transmitted ref erence range: [...] H [Aut omated message] 670) The system [employer] generated this result transmitted ref erence range: 1.56 - 6 .13 K/L. The refe rence range was not u sed to interpret this result as normal/abnor mal. # Lymphs (test code = 1.18 See_Comment [Auto mated message] 414) The system [employer] generated this result transmitted ref erence range: 1.18 - 3 .74 K/L. The refe rence range was not u sed to interpret this result as normal/abnor mal. # Monos (test code = 0.64 See_Comment H [Autom ated message] 415) The system [employer] generated this result transmitted ref erence range: 0.24 - 0 .36 K/L. The refe rence range was not u sed to interpret this result as normal/abnor mal. # Eos (test code = 416) 0.31 See_Comment [Au tomated message] The system [employer] generated this result transmitted ref erence range: 0.04 - 0 .36 K/L. The refe rence range was not u sed to interpret this result as normal/abnor mal. # Baso (test code = 417) 0.02 See_Comment [A utomated message] The system [employer] generated this result transmitted ref erence range: 0.01 - 0 .08 K/L. The refe rence range was not u sed to interpret this result as normal/abnor mal. Immature 1 % 0-1 Granulocytes-Relative (test code = 2801) Lab Interpretation (test Abnormal code = 79188-1) [facility] W/PLT COUNT & AUTO [id number] 06:36:06 Test Item Value Reference Range Interpretation [...] (BEAKER) (test code = 2801) BASIC METABOLIC [id number] 09:04:28 Test Item Value Reference Range Interpretation [...] S NOT APPLICABLE FOR DIALYSIS PATIEN TS. Booth Cashier ID - DBSpecimen moderately wctpptgYWAVZJHFU1355-46-19 08:26:10 Test Item Value Reference Range Interpretation Comments MAGNESIUM (BEAKER) (test code = 1.8 mg/dL 1.6-2.6 627) Booth Cashier ID - DBHEPATIC FUNCTION [id number] 08:26:10 Test Item Value Reference Range Interpretation [...] (test code = 17 U/L 6-55 347) Booth Cashier ID - DBSpecimen moderately ictericPROTHROMBIN TIME/[id number] 07:14:13 Test Item Value Reference Range Interpretation Comments PROTIME (BEAKER) 23.1 seconds 11.9-14.2 H (test code = 759) INR (BEAKER) (test 2.08 See_Comment [Automat ed message] code = 370) The system [employer] generated this result transmitted ref erence range: <=5.90. The reference range was not used to int erpret this result as normal/abnormal . RECOMMENDED COUMADIN/WARFARIN INR THERAPY RANGESSTANDARD DOSE: 2.0 - 3.0 Includes: PROPHYLAXIS for venous thrombosis, systemic embolization; TREATMENT for venous thrombosis and/or pulmonary embolus.HIGH RISK: Target INR is 2.5-3.5 for patients with mechanical heart valves.CBC W/PLT COUNT & AUTO [id number] 07:07:41 Test Item Value Reference Range Interpretation [...] (BEAKER) (test code = 2801) BASIC METABOLIC [id number] 09:04:18 Test Item Value Reference Range Interpretation [...] S NOT APPLICABLE FOR DIALYSIS PATIEN TS. Booth Cashier ID - DBOperator ID - DBSpecimen moderately ictericHEPATIC FUNCTION [id number] 07:53:06 Test Item Value Reference Range Interpretation [...] (test code = 16 U/L 6-55 347) Booth Cashier ID - DBSpecimen moderately ictericManual Framwlwkmuqe1643-79-45 07:50:25 Test Item Value Reference Range Interpretation Comments % Neutros (test code = 96 % 2815) % Monos (test code = 2 % 8) % Eos (test code = 2819) 1 [...] = 3438) REJI (test code = REJI) Booth Cashier ID - michaela He comments: Slide comments: Lab Interpretation (test Abnormal code = 48210-1) [facility](CELLAVISION MANUAL DIFF)2021-09-09 07:50:25 Test Item Value [...] CONCENTRATION Decreased (CELLAVISION)(BEAKER) (test code = 3438) Booth Cashier ID - michaela Cutler comments: Slide comments:CBC W/PLT COUNT & AUTO [id number] 07:50:24 Test Item Value Reference Range Interpretation [...] WBC 0-0 (test code = 413) PROTHROMBIN TIME/[id number] 06:28:05 Test Item Value Reference Range Interpretation Comments PROTIME (BEAKER) 24.0 seconds 11.9-14.2 H (test code = 759) INR (BEAKER) (test 2.18 See_Comment [Automat ed message] code = 370) The system [employer] generated this result transmitted ref erence range: [...] = No growth in 5 days 6463-4) [facility] HospitalBLO[facility] [id number] 14:01:01 Test Item Value Reference Range Interpretation Comments CULTURE (BEAKER) (test No growth in 5 days code = 1095) [id number] 11:09:32 Test Item Value Reference Range Interpretation Comments Ammonia (test code = 35 See_Comment [Autom ated 27594-5) message] The system which generated this result transmit barron reference range : 18 - 72 mol/L . The reference range was not u sed to interpret th is result as normal/abnormal . REJI (test code = REJI) Booth Cashier ID - MARLON L Lab Interpretation Normal (test code = 54623-2) [facility]AMMON[facility]2022-[facility] 11:09:32 Test Item Value Reference Range Interpretation Comments AMMONIA (BEAKER) (test code = 348) 35 mol/L 18-72 Booth Cashier ID - MARLON LCBC W/PLT COUNT & AUTO [id number] 07:57:44 Test Item Value Reference Range Interpretation [...] CONCENTRATION Decreased (CELLAVISION)(BEAKER) (test code = 3438) Booth Cashier GINA - Phyllis comments: Slide comments:BASIC METABOLIC [id number] 06:46:23 Test Item Value Reference Range Interpretation [...] S NOT APPLICABLE FOR DIALYSIS PATIEN TS. Booth Cashier ID Ajay FRANK CHUCKpecimekorin slightly qfocqnnSuneivwgme3218-89-19 06:42:47 Test Item Value Reference Range Interpretation Comments Phosphorus (test code = 2.4 mg/dL 2.3-4.7 2777-1) REJI (test code = REJI) Booth Cashier ID Ajay FRANK W Lab Interpretation (test Normal code = 18970-7) [facility]PH[facility]20[facility] 06:42:47 Test Item Value Reference Range Interpretation Comments PHOSPHORUS (BEAKER) (test code = 2.4 mg/dL 2.3-4.7 604) Booth Cashier GINA FRANK WHEPATIC FUNCTION [id number] 06:42:47 Test Item Value Reference Range Interpretation [...] (test code = 15 U/L 6-55 347) Booth Cashier ID Ajay Rosales slightly ictericPROTHROMBIN TIME/[id number] 05:37:24 Test Item Value Reference Range Interpretation Comments PROTIME (BEAKER) 26.6 seconds 11.9-14.2 H (test code = 759) INR (BEAKER) (test 2.48 See_Comment [Automat ed message] code = 370) The system [employer] generated this result transmitted ref erence range: [...] CONCENTRATION Decreased (CELLAVISION)(BEAKER) (test code = 3438) Booth Cashier ID - Cindy Gibson comments: Slide comments:CBC W/PLT COUNT & AUTO [id number] 09:40:43 Test Item Value Reference Range Interpretation [...] 0-0 (test code = 413) BASIC METABOLIC [id number] 07:22:45 Test Item Value Reference Range Interpretation [...] S NOT APPLICABLE FOR DIALYSIS PATIEN TS. Booth Cashier ID - MARLON LSpecimen slightly vkbfojdVNMFCUYWDU6929-12-54 07:16:27 Test Item Value Reference Range Interpretation Comments PHOSPHORUS (BEAKER) (test code = 2.2 mg/dL 2.3-4.7 L 604) Booth Cashier ID - MARLON LHEPATIC FUNCTION [id number] 07:16:27 Test Item Value Reference Range Interpretation [...] (test code = 17 U/L 6-55 347) Booth Cashier ID - MARLON LSpecimen slightly ictericBLOOD [id number] 07:00:33 Test Item Value Reference Range Interpretation Comments CULTURE (BEAKER) (test No growth in 5 days code = 1095) PROTHROMBIN TIME/[id number] 06:15:38 Test Item Value Reference Range Interpretation Comments PROTIME (BEAKER) 25.1 seconds 11.9-14.2 H (test code = 759) INR (BEAKER) (test 2.31 See_Comment [Automat ed message] code = 370) The system [employer] generated this result transmitted ref erence range: <=5.90. The reference range was not used to int erpret this result as normal/abnormal . RECOMMENDED COUMADIN/WARFARIN INR THERAPY RANGESSTANDARD DOSE: 2.0 - 3.0 Includes: PROPHYLAXIS for venous thrombosis, systemic embolization; TREATMENT for venous thrombosis and/or pulmonary embolus.HIGH RISK: Target INR is 2.5-3.5 for patients with mechanical heart valves.Ova and Parasite Secryktbwla0661-90-25 08:26:13 Test Item Value Reference Range Interpretation Comments O&P Direct Smear (test No ova or parasites No ova or code = 85283-1) seen parasites seen REJI (test code = REJI) See scanned report Lab Interpretation (test Normal code = 67453-0) [facility] 07:29:32 Test Item Value Reference Range Interpretation Comments PHOSPHORUS (BEAKER) (test code = 1.5 mg/dL 2.3-4.7 LL 604) Booth Cashier ID - ZAC WBASIC METABOLIC [id number] 07:09:27 Test Item Value Reference Range Interpretation [...] S NOT APPLICABLE FOR DIALYSIS PATIEN TS. Booth Cashier ID - ZAC WOODSpecimekorin slightly ictericPROTHROMBIN TIME/[id number] 06:57:19 Test Item Value Reference Range Interpretation Comments PROTIME (BEAKER) 23.2 seconds 11.9-14.2 H (test code = 759) INR (BEAKER) (test 2.09 See_Comment [Automat ed message] code = 370) The system [employer] generated this result transmitted ref erence range: [...] (BEAKER) (test 1+ few code = 481) DBEI CELLS (BEAKER) (test code = 2+ moderate 474) PLATELET CONCENTRATION Decreased (CELLAVISION)(BEAKER) (test code = 3438) Booth Cashier ID - nabil Julian comments: Slide comments:[id number] 15:08:54 Test Item Value Reference Range Interpretation Comments PHOSPHORUS (BEAKER) (test code = 1.2 mg/dL 2.3-4.7 LL 604) Booth Cashier ID - BSBASIC METABOLIC [id number] 15:04:30 Test Item Value Reference Range Interpretation [...] S NOT APPLICABLE FOR DIALYSIS PATIEN TS. Booth Cashier ID - BSSpecimen slightly ictericHEPATIC FUNCTION [id number] 15:02:35 Test Item Value Reference Range Interpretation [...] (test code = 17 U/L 6-55 347) Booth Cashier ID - BSSpecimen slightly ictericPROTHROMBIN TIME/[id number] 14:50:10 Test Item Value Reference Range Interpretation Comments PROTIME (BEAKER) 24.9 seconds 11.9-14.2 H (test code = 759) INR (BEAKER) (test 2.28 See_Comment [Automat ed message] code = 370) The system [employer] generated this result transmitted ref erence range: <=5.90. The reference range was not used to int erpret this result as normal/abnormal . RECOMMENDED COUMADIN/WARFARIN INR THERAPY RANGESSTANDARD DOSE: 2.0 - 3.0 Includes: PROPHYLAXIS for venous thrombosis, systemic embolization; TREATMENT for venous thrombosis and/or pulmonary embolus.HIGH RISK: Target INR is 2.5-3.5 for patients with mechanical heart valves.CBC W/PLT COUNT & AUTO [id number] 14:44:53 Test Item Value Reference Range Interpretation [...] (test code = 413) Clostridium difficile GDH [id number] 21:23:26 Test Item Value Reference Range Interpretation Comments C. Difficle Toxin Positive Negative A (test code = 3248916536) C. Difficile GDH Positive Negative A Confirms Antigen (test code = Clostri dium 2139010988) difficile-assoc ia barron infection.First line therapy - [...] of kit performance was done by the [facility] Microbiology [facility] prior to clinical use. Lab Interpretation Abnormal (test code = 20399-1) [facility]. DIFFICILE GDH [id number] 21:23:26 Test Item Value Reference Range Interpretation Comments CDT TOXIN (test code Positive Negative A = 3369903111) CDT GDH ANTIGEN Positive Negative A Confirms Maria Esther stridium (test code = difficile-assoc iated 4309914465) infection.First line therapy - oral Vancomycin. Con tinue enteric isolati on until 72 hours after treatment is discontinued and symptoms have r esolved. Testing performed by [employer]. For GDH, published sensitivity of the assay is 98.7% compared to cytotoxicity testing. For Toxin AB, published sensitivity is 87.8% and specificity 99.4% compared to cytotoxicity testing.Verification of kit performance was done by the [facility] prior to clinical use.CT, CHEST, WITH [id number] 10:14:00Unlisted Reason for Exam - Click Yes and Enter Reason Below->No [facility] 1960 Sex: FFINAL REPORT CT Chest, abdomen, and pelvis with contrast History:Pneumonia, Crohn's exacerbation Comparison:none Technique: serial axial imaging was performed following up to 100cc of non ionic iodinated intravenous contrast as per departmental protocol. Multiplanar images are reconstructed and reviewed when indicated. This CT examination is performed using one or more of the following dosereduction techniques: Automated exposure control, adjustment of the mA and /or kV according to patient size, and/or use of iterative reconstruction technique. Findings:No mediastinal or hilar lymphadenopathy. Normal size heart. No pericardial effusion. No thoracic aortic aneurysm or dissection. No central pulmonary arterial filling defect. Patent central airways. No pleural effusion or pneumothorax.Significant patient respiratory motion limits evaluation of the pulmonary parenchyma. The lungs appear grossly clear. Unremarkable appearance of the pancreas. The spleen appears borderline enlarged, measuring 13 cm in craniocaudal dimension. No focal splenic abnormality. Liver appears cirrhotic. No focal hepatic lesion is visualized. A patent right portal-right hepatic TIPS shunt is noted. Central portal veins appear [...] appendicitis. Small volume ascites. No lymphadenopathy is identified. No abdominal aortic aneurysm. Previous ventral hernia [...] Quentin Sims [facility] Verified Date/Time: 09/04/2021 10:14:08 [facility], [id number] 10:14:00Unlisted Reason for Exam - Click Yes and Enter Reason Below->No Is this for enterography?->YesWill this procedure require oral contrast?->Yes [facility] : 1960 Sex: FFINAL REPORT CT Chest, [...] evaluation of the pulmonary parenchyma. The lungs appeargrossly clear. Unremarkable appearance of the pancreas. The spleen appears borderline enlarged, measuring 13 cm in craniocaudal dimension. No focal splenic abnormality. Liver appears cirrhotic. No focal hepatic lesion is visualized. A patent right portal-right hepatic TIPS shunt is noted. Central portal veins appear [...] appendicitis. Small volume ascites. No lymphadenopathy is identified. No abdominal aortic aneurysm. Previous ventral hernia repair, which appears intact. No aggressive osseous lesion. Impression: 1. Technically limited study due to significant patient respiratory motion.2. No definite acute findingsin the chest.3. Moderate diffuse colonic thickening, consistent with kim colitis. No evidence of bowel perforation or abscess.4. Cirrhosis with patent TIPS shunt. Mildly prominent spleen. Small volume ascites. Signed: Quentin Sims [facility] Verified Date/Time: 09/04/2021 10:14:08 (CELLAVISION [...] CONCENTRATION Decreased (CELLAVISION)(BEAKER) (test code = 3438) Booth Cashier ID - michaela Cutler comments: Slide comments:CBC W/PLT COUNT & AUTO [id number] 07:25:32 Test Item Value Reference Range Interpretation [...] /100 WBC 0-0 (test code = 413) [id number] 06:26:19 Test Item Value Reference Range Interpretation Comments PHOSPHORUS (BEAKER) (test code = 1.5 mg/dL 2.3-4.7 LL 604) Booth Cashier GINA FRANK WComprehensive metabolic bvhsa2841-73-78 06:18:30 Test Item Value Reference Range Interpretation Comments Protein, Total (test 4.7 See_Comment L [Autom ated code = 2885-2) message] The system which generated this result transmitted reference range : 6.0 - 8.3 gm/dL . The reference range was not used to interpr et this result as normal/abnormal . Albumin (test code = 2.7 g/dL 3.5-5.0 L 91595-8) Alkaline Phosphatase 85 U/L 40-150 (test code = 6768-6) Total Bilirubin (test 2.7 mg/dL 0.2-1.2 H code = 1974-2) Sodium (test code = 134 meq/L 136-145 L 2951-2) Potassium (test code 3.6 meq/L 3.5-5.1 = 2823-3) Chloride (test code = 113 meq/L 98-107 H 5-0) CO2 (test code = 17 meq/L 22-29 L 8-9) BUN (test code = 27 mg/dL 7-21 H 3094-0) Creatinine (test code 1.06 mg/dL 0.57-1.25 = 2160-0) Glucose (test code = 118 mg/dL 70-105 H 2345-7) Calcium (test code = 7.3 mg/dL 8.4-10.2 L 58534-2) AST (test code = 28 U/L 5-34 1920-8) ALT (test code = 14 U/L 6-55 1742-6) EGFR (test code = 53 mL/min/1.73 [place] [address]-0) NOT ACCURATE CREATININE CLEARANCE IN PREDICTING GLOMERULAR FILTRATION RATE . ESTIMATED GFR I S NOT APPLICABLE FOR DIALYSIS PATIENTS. REJI (test code = REJI) Booth Cashier ID Ajay WOODSpecimekorin slightly icteric Lab Interpretation Abnormal (test code = 77625-6) [facility]COMPRE[facility]OLIC [id number] 06:18:30 Test Item Value Reference Range Interpretation [...] S NOT APPLICABLE FOR DIALYSIS PATIEN TS. Booth Cashier ID - ZAC WSpecimen slightly qibbcotNHUJPICZV3066-71-29 06:13:05 Test Item Value Reference Range Interpretation Comments MAGNESIUM (BEAKER) (test code = 2.3 mg/dL 1.6-2.6 627) Booth Cashier ID - ZAC W(CELLAVISION MANUAL DIFF)2021-09-03 14:33:56 [...] CONCENTRATION Decreased (CELLAVISION)(BEAKER) (test code = 3438) Booth Cashier ID - Claudine Rios comments: Slide comments:CBC W/PLT COUNT & AUTO [id number] 14:33:55 Test Item Value Reference Range Interpretation [...] (test code = 413) Hepatitis B surface xzwpcsuc6803-69-68 13:30:11 Test Item Value Reference Range Interpretation Comments Hep B S Ab (test code <8.0 See_Comment [Auto mated = 13563-2) message] The system which generated this result transmit barron reference range : <8.0 mIU/mL. Th e reference range was not used to interpret this result as normal/abnormal . REJI (test code = REJI) Booth Cashier ID - MARLON Zapien Lab Interpretation Normal (test code = 83226-6) [facility] HospitalHEPATITIS B SURFACE [id number] 13:30:11 Test Item Value Reference Range Interpretation Comments HEPATITIS B SURFACE ANTIBODY < mIU/mL <8.0 (BEAKER) (test code = 647) Booth Cashier ID Ajay ARREOLAepatitis A antibody, YfR3679-07-54 13:23:53 Test Item Value Reference Range Interpretation Comments Hep A IgG (test code = Nonreactive Nonreactive 76671-3) REJI (test code = REJI) Booth Cashier ID Ajay MASON L Lab Interpretation (test Normal code = 18159-3) [facility], [id number] 13:23:53 Test Item Value Reference Range Interpretation Comments HEPATITIS A IGG ANTIBODY (BEAKER) Nonreactive Nonreactive (test code = 2797) Booth Cashier ID Ajay ARREOLAepatitis B core antibody, azkdk7786-29-12 13:23:52 Test Item Value Reference Range Interpretation Comments Hep B Core Total Ab Nonreactive Nonreactive (test code = 96484-2) REJI (test code = REJI) Booth Cashier ID Ajay MASON L Lab Interpretation (test Normal code = 21541-2) [facility] yszhejmn2951-32-01 13:23:52 Test Item Value Reference Range Interpretation Comments Hepatitis C Ab (test Nonreactive Nonreactive code = 63945-2) REJI (test code = REJI) Booth Cashier ID Ajay MASON L Lab Interpretation (test Normal code = 70682-5) [facility] [id number] 13:23:52 Test Item Value Reference Range Interpretation Comments HEPATITIS C ANTIBODY (BEAKER) Nonreactive Nonreactive (test code = 367) Booth Cashier ID Ajay ARREOLAEPATITIS B CORE ANTIBODY, [id number] 13:23:52 Test Item Value Reference Range Interpretation Comments HEPATITIS B CORE TOTAL ANTIBODY Nonreactive Nonreactive (BEAKER) (test code = 497) Booth Cashier ID - MARLON LHepatitis B surface dprnpsb0144-04-44 13:23:51 Test Item Value Reference Range Interpretation Comments HBsAg Screen (test code Nonreactive Nonreactive = 5195-3) REJI (test code = REJI) Specimen is considered negative for HBsAg. Lab Interpretation (test Normal code = 25172-7) [facility] B SURFACE [id number] 13:23:51 Test Item Value Reference Range Interpretation [...] S NOT APPLICABLE FOR DIALYSIS PATIEN TS. Booth Cashier ID - MARLON LSpecimen slightly miperfjKGNDSVODD9917-14-38 12:58:51 Test Item Value Reference Range Interpretation Comments MAGNESIUM (BEAKER) (test code = 2.1 mg/dL 1.6-2.6 627) Booth Cashier ID - MARLON MJWCLEKGKQA7889-43-51 12:58:51 Test Item Value Reference Range Interpretation Comments PHOSPHORUS (BEAKER) (test code = 2.3 mg/dL 2.3-4.7 604) Booth Cashier ID - MARLON LPROTHROMBIN TIME/PRQ9005-17-39 12:56:09 Test Item Value Reference Range Interpretation Comments PROTIME (BEAKER) 23.4 seconds 11.9-14.2 H (test code = 759) INR (BEAKER) (test 2.10 See_Comment [Automat ed message] code = 370) The system [employer] generated this result transmitted ref erence range: <=5.90. The reference range was not used to int erpret this result as normal/abnormal . RECOMMENDED COUMADIN/WARFARIN INR THERAPY RANGESSTANDARD DOSE: 2.0 - 3.0 Includes: PROPHYLAXIS for venous thrombosis, systemic embolization; TREATMENT for venous thrombosis and/or pulmonary embolus.HIGH RISK: Target INR is 2.5-3.5 for patients with mechanical heart valves.Urine qfttxmw2318-81-05 12:15:06 Test Item Value Reference Range Interpretation Comments Result (test code = 6463-4) No growth [facility] by [facility] -ID Pmxz1673-06-87 12:43:22 Test Item Value Reference Range Interpretation Comments CAMPYLOBACTER (PCR) Not detected Not detected (test code = 29599-7) PLESIOMONAS SHIGELLOIDES Not detected Not detected (PCR) (test code = 09282-6) SALMONELLA (PCR) (test Not detected Not detected code = 69106-7) YERSINIA ENTEROCOLITICA Not detected Not detected (PCR) (test code = 30826-9) VIBRIO CHOLERAE (PCR) Not detected Not detected (test code = 84859-4) ENTEROAGGREGATIVE E. Not detected Not detected COLI (EAEC) BY PCR (test code = 11397-6) ENTEROPATHOGENIC E. COLI Not detected Not detected (EPEC) BY PCR (test code = 45555-2) ENTEROTOXIGENIC E. COLI Not detected Not detected (ETEC) LT/ST BY PCR (test code = 54202-7) SHIGA-LIKE Not detected Not detected TOXIN-PRODUCING E. COLI (STEC) STX1/STX2 (test code = 22711-5) E. COLI O157 (PCR) (test code = 78416-2) SHIGELLA/ENTEROINVASIVE Not detected Not detected E. COLI (EIEC) BY PCR (test code = 19350-1) CRYPTOSPORIDIUM (PCR) Not detected Not detected (test code = 81516-3) CYCLOSPORA CAYETANENSIS Not detected Not detected (PCR) (test code = 03762-1) ENTAMOEBA HISTOLYTICA Not detected Not detected (PCR) (test code = 11181-0) GIARDIA LAMBLIA (PCR) Not detected Not detected (test code = 13659-7) ADENOVIRUS F 40/41 (PCR) Not detected Not detected (test code = 52418-1) ASTROVIRUS (PCR) (test Not detected Not detected code = 08867-8) NOROVIRUS GI/GII (PCR) Not detected Not detected (test code = 61996-4) ROTAVIRUS A (PCR) (test Not detected Not detected code = 66062-4) SAPOVIRUS (I, II, IV, V) Not detected Not detected BY PCR (test code = 33606-9) VIBRIO Not detected Not detected (PARAHAEMOLYTICUS, VULNIFICUS) (test code = 29378-1) REJI (test code = REJI) Other viruses, parasites and bacteria not targeted by this PCR panel cannot be excluded; therefore clinical correlation and follow up of serology, culture results, and other molecular studies is required. The results are not intended to be used as the sole means for clinical diagnosis or patient management decisions. This sample was tested at the [facility] using the [employer] Gastrointestinal Panel. It is FDA cleared and has been verified and approved by the [facility] for clinical use. This laboratory is CLIA-certified and [employer] [place] [employer] (CAP)-accredited to perform high complexity testing. [facility] HospitalGI PATH[facility]EN PROFILE BY [id number] 12:43:22 Test Item Value Reference Range Interpretation Comments CAMPYLOBACTER (PCR) (test code = Not detected Not detected 20160214) PLESIOMONAS SHIGELLOIDES (PCR) Not detected Not detected (test code = 20160218) SALMONELLA (PCR) (test code = Not detected Not detected ) YERSINIA ENTEROCOLITICA (PCR) Not detected Not detected (test code = 20160312) VIBRIO CHOLERAE (PCR) (test code Not detected Not detected = 5163278) ENTEROAGGREGATIVE E. COLI (EAEC) Not detected Not detected BY PCR (test code = 3904891) ENTEROPATHOGENIC E. COLI (EPEC) Not detected Not detected BY PCR (test code = 5377993) ENTEROTOXIGENIC E. COLI (ETEC) Not detected Not detected LT/ST BY PCR (test code = 7358038) SHIGA-LIKE TOXIN-PRODUCING E. Not detected Not detected COLI (STEC) STX1/STX2 (test code = 3635115) E. COLI O157 (PCR) (test code = 2606918) SHIGELLA/ENTEROINVASIVE E. COLI Not detected Not detected (EIEC) BY PCR (test code = 7037915) CRYPTOSPORIDIUM (PCR) (test code Not detected Not detected = 4689971) CYCLOSPORA CAYETANENSIS (PCR) Not detected Not detected (test code = 4303770) ENTAMOEBA HISTOLYTICA (PCR) Not detected Not detected (test code = 4989610) GIARDIA LAMBLIA (PCR) (test code Not detected Not detected = 3240318) ADENOVIRUS F 40/41 (PCR) (test Not detected Not detected code = 2425473) ASTROVIRUS (PCR) (test code = Not detected Not detected 20160415) NOROVIRUS GI/GII (PCR) (test Not detected Not detected code = 7146616) ROTAVIRUS A (PCR) (test code = Not detected Not detected 2383868) SAPOVIRUS (I, II, IV, V) BY PCR Not detected Not detected (test code = 8616507) VIBRIO (PARAHAEMOLYTICUS, Not detected Not detected VULNIFICUS) (test code = 9080699) Other viruses, parasites and bacteria not targeted by this PCR panel cannot be excluded; therefore clinical correlation and follow up of serology, culture results, and other molecular studies is required. The results are not intended to be used as the sole means for clinical diagnosis or patient management decisions. This sample was tested at the [facility] using the [employer] Gastrointestinal Panel. It is FDA cleared and has been verified and approved by the [facility] for clinical use. [...] CONCENTRATION Decreased (CELLAVISION)(BEAKER) (test code = 3438) Booth Cashier ID - Phyllis comments: Slide comments:CBC W/PLT COUNT & AUTO [id number] 08:49:57 Test Item Value Reference Range Interpretation [...] (test code = 413) Vitamin B12 and Vdlssm4945-50-35 07:20:11 Test Item Value Reference Range Interpretation Comments Vitamin B12 (test 1116 pg/mL 213-816 H code = 2132-9) Folate (test code = 3.50 ng/mL See_Comment L [Automa barron 2284-8) message] The system which generated this result transmit barron reference range : >=7.00. The reference range was not used to interpret this result as normal/abnormal . REJI (test code = REJI) Booth Cashier ID - SHAQUILLE Rodolfo Lab Interpretation Abnormal (test code = 97567-2) [facility] HospitalVITAMIN B12 AND [id number] 07:20:11 Test Item Value Reference Range Interpretation Comments VITAMIN B12 (BEAKER) 1116 pg/mL 213-816 H (test code = 774) FOLATE (BEAKER) 3.50 ng/mL See_Comment L [Automated message] (test code = 362) The system which generated this result transmitted ref erence range: >=7.00. The reference range was not used to interpr et this result as normal/abnormal . Booth Cashier ID - SHAQUILLE MCOMPREHENSIVE METABOLIC [id number] 06:57:06 Test Item Value Reference Range Interpretation [...] S NOT APPLICABLE FOR DIALYSIS PATIEN TS. Booth Cashier ID - SHAQUILLE MSpecimen slightly ictericC-Reactive Bbquvei4148-06-53 06:55:26 Test Item Value Reference Range Interpretation Comments CRP (test code = 676) 4.64 mg/dL 0.00-0.50 H REJI (test code = REJI) Booth Cashier ID - SHAQUILLE M Lab Interpretation (test Abnormal code = 74066-6) [facility] HospitalPHOSPHORUS2022-01-22 06:55:26 Test Item Value Reference Range Interpretation Comments PHOSPHORUS (BEAKER) (test code = 1.8 mg/dL 2.3-4.7 L 604) Booth Cashier ID - SHAQUILLE MC-REACTIVE [id number] 06:55:26 Test Item Value Reference Range Interpretation Comments C-REACTIVE PROTEIN (BEAKER) (test 4.64 mg/dL 0.00-0.50 H code = 676) Booth Cashier ID - HSAQUILLE IZDAPFXYDM4045-84-57 06:55:25 Test Item Value Reference Range Interpretation Comments MAGNESIUM (BEAKER) (test code = 2.3 mg/dL 1.6-2.6 627) Booth Cashier ID - SHAQUILLE Corina, TIBC, % sat. (without ferritin)2021-09-02 06:44:00 Test Item Value Reference Range Interpretation Comments Iron (test code = 2498-4) 28.0 ug/dL 40.0-160.0 L TIBC (test code = 2500-7) 243 ug/dL 250-450 L Iron % Saturation (test 12 % 20-55 L code = 2502-3) REJI (test code = REJI) Booth Cashier ID - SHAQUILLE M Lab Interpretation (test Abnormal code = 17037-9) [facility] HospitalIRON, TIBC, % SAT. (WITHOUT FERRITIN)2021-09-02 06:44:00 Test Item Value Reference Range Interpretation Comments IRON (BEAKER) (test code = 547) 28.0 ug/dL 40.0-160.0 L TOTAL IRON BINDING CAPACITY 243 ug/dL 250-450 L (BEAKER) (test code = 769) IRON % SATURATION (2) (BEAKER) 12 % 20-55 L (test code = 2590) Booth Cashier ID - SHAQUILLE MCT, BRAIN, WITHOUT [id number] 03:54:00Unlisted Reason for Exam - Click Yes and Enter Reason Below->No [facility] 1960 Sex: FFINAL REPORT EXAM: CT, BRAIN, WITHOUT CONTRAST INDICATION: Altered mental status TECHNIQUE:CT images from skull base to vertex without IV contrast. This exam was performed according to the departmental dose optimization program which includes automated exposure control, adjustment of the mA and/or kV according to the patient size, and/or use of an iterative reconstruction technique. COMPARISON: None. FINDINGS: Parenchyma: No evidence of acute infarction. No hemorrhage. No mass or mass effect. Extra-axial Collection: None Ventricular System: Normal Osseous Structures: No acute osseous abnormality. Included Orbits: Normal Paranasal Sinuses: Predominantly clear Tympanomastoid Cavities: Normal Other: None IMPRESSION:No acute abnormality on CT head without contrast. If there is persistent clinical concern for intracranial pathology, MR examination is recommended for further characterization. Signed: Mercy Mccallum MDReport Verified Date/Time: 09/02/2021 03:54:37 U/S, ABDOMINAL, [id number] 03:38:00 Abdomen limited area? Add comment if clarification is needed.->Right upper quadrantReason for exam:->evaluate biliary tree/liver [facility] : 1960 Sex: FFINAL REPORT INDICATION: evaluate [...] secondary to poor acoustic windowing. Body and tail: Not well- seen. Ascites: None. Regional Vasculature: The visible abdominal aorta, IVC and hepatic veins are patent. The aorta measures 2.0 cm proximally, 1.9 cmin the midportion 1.5 cm distally. Additional findings: None. IMPRESSION: Limited evaluation due to poor acoustic windowing and patient inability to tolerate examination. If there is persistent clinical concern recommend repeat examination when patient better able to tolerate. Increased hepatic echogenicity can be seen in setting of hepatic steatosis. Signed: Dulce Maria Sales Verified Date/Time: 09/02/2021 03:38:29 Urinalysis w/Microscopic + Reflex to [id number] 02:29:12 Test Item Value Reference Range Interpretation Comments Color, UA (test code Brown = 5778-6) Clarity, UA (test Hazy code = 5767-9) Specific [place], UA 1.029 1.001-1.035 (test code = 5811-5) pH, UA (test code = 6.0 5.0-8.0 5803-2) Protein, UA (test 30 mg/dL Negative A code = 72761-4) Glucose, UA (test Negative Negative code = 365) Ketones, UA (test Negative Negative code = 2514-8) Bilirubin, UA (test Negative Negative code = 95283-1) Blood, UA (test code Small Negative A = 23730-8) Nitrite, UA (test Negative Negative code = 5802-4) Leukocytes, UA (test Moderate Negative A code = 5799-2) Urobilinogen, UA 0.2 mg/dL 0.2-1.0 (test code = 30562-9) RBC, UA (test code = 18 See_Comment [Autom ated 67444-3) message] The system which generated this result [...] . Bacteria, UA (test Rare code = 56963-4) Mucus (test code = Moderate 8247-9) Squam Epithel, UA 2 See_Comment [Automate d (test code = 14706-9) messag e] The system which generated this result transmit barron reference range : /HPF. The reference range was not used to interpret this result as normal/abnormal . Hyaline Casts, UA 3 See_Comment [Automate d (test code = 84032-8) messag e] The system which generated this result transmit barron reference range : /LPF. The reference range was not used to interpret this result as normal/abnormal . Crystals, Urine (test None Seen code = 03486-2) Amorphous Crystals Rare (test code = 68386-0) Specimen Source (test code = 2795) REJI (test code = REJI) Booth Cashier ID - [auto]Booth Cashier ID - tech Lab Interpretation Abnormal (test code = 49180-9) [facility]UR[facility]IS W/ REFLEX URINE [id number] 02:29:12 Test Item Value Reference Range Interpretation [...] = 1584) SOURCE(BEAKER) (test code = 2795) Booth Cashier ID - [auto]Booth Cashier ID - techRAD, CHEST, 1 VIEW, NON [id number] 01:45:00Reason for exam:->leukocytosis, unable to provide historyShould this be performed at the bedside?->Yes [facility] 1960 Sex: FFINAL REPORT Chest, 1 view. History: Leukocytosis Comparison: None available. IMPRESSION: The cardiomediastinal silhouette and pulmonary vasculature are within normal limits for a portable exam. Patchy bandlike airspace opacity in the right perihilar lung, may be related to atelectasis in thesetting of low lung volumes however atypical infection can have this appearance. Recommend short interval follow-up examination to ensure resolution. No pleural effusion or pneumothorax. No lobar consolidation. Vascular stent in the right upper quadrant. Postsurgical changes of cholecystectomy. No acute osseous abnormality. Signed: Dulce Maria Sales Verified Date/Time: 09/02/2021 01:45:23 CBC W/PLT COUNT & AUTO [id number] 00:20:23 Test Item Value Reference Range Interpretation [...] CONCENTRATION Decreased (CELLAVISION)(BEAKER) (test code = 3438) Booth Cashier ID - Curtis Grullon comments: Slide comments:PT/yCEP7365-00-12 23:44:49 Test Item Value Reference Interpretation Comments Range Protime (test code = 22.8 See_Comment H [Autom ated 5902-2) message] The system which generated this result transmitted reference range : 11.9 - 14.2 seconds. The reference range was not used to interpret this result as normal/abnormal . INR (test code = 2.04 See_Comment [Automated 1741-6) message] The system which generated this result transmitted reference range : <=5.90. The reference range was not used to interpret this result as normal/abnormal . PTT (test code = 35.2 See_Comment [Automated 45075-3) message] The system which generated this result [...] valves. Lab Interpretation Abnormal (test code = 84645-4) [facility] HospitalPT/[id number] 23:44:49 Test Item Value Reference Range Interpretation [...] for patients with mechanical heart valves.BASIC METABOLIC [id number] 23:31:12 Test Item Value Reference Range Interpretation [...] S NOT APPLICABLE FOR DIALYSIS PATIEN TS. Booth Cashier ID - DBSpecimen slightly bmapkwxSADUYTGKR1129-60-94 23:19:46 Test Item Value Reference Range Interpretation Comments MAGNESIUM (BEAKER) (test code = 1.8 mg/dL 1.6-2.6 627) Booth Cashier ID - AETNPKXPKLBT4743-69-33 23:19:46 Test Item Value Reference Range Interpretation Comments PHOSPHORUS (BEAKER) (test code = 1.9 mg/dL 2.3-4.7 L 604) Booth Cashier ID - DBHEPATIC FUNCTION [id number] 23:19:46 Test Item Value Reference Range Interpretation [...] (test code = 14 U/L 6-55 347) Booth Cashier ID - DBSpecimen slightly ictericLactic acid, aatauk7680-08-42 23:13:03 Test Item Value Reference Range Interpretation Comments Lactate, Venous (test 2.88 mmol/L 0.50-2.20 H code = 2872) REJI (test code = REJI) Booth Cashier ID - DBSpecimen slightly icteric Lab Interpretation (test Abnormal code = 33814-2) [facility] HospitalLACTIC ACID, [id number] 23:13:03 Test Item Value Reference Range Interpretation Comments LACTATE BLOOD VENOUS (2) (BEAKER) 2.88 mmol/L 0.50-2.20 H (test code = 2872) Booth Cashier ID - DBSpecimen slightly ictericPOC-Glucose klnxg3217-30-10 22:47:30 Test Item Value Reference Range Interpretation Comments POC-Glucose Meter (test 106 mg/dL 70-110 : TE STED AT [facility] code = 1538) [address] [facility] [place], [address]: Booth Cashier/Techni sowmya ID = [id number] for ULLATTIL, TAYA K Lab Interpretation (test Normal code = 52665-9) [facility] HospitalPOCT-GLUCOSE [id number] 22:47:30 Test Item Value Reference Range Interpretation Comments POC-GLUCOSE METER 106 mg/dL 70-110 : TESTED A T [facility] [address] (BEAKER) (test code = SHAUN [place] [facility], 1538) [address]: Booth Cashier/Techni sowmya ID = [id number] for WALE FITZPATRICK C1Q class 1 & 2 utppcwed9217-80-88 17:38:21 Test Item Value Reference Range Interpretation Comments Interpretation (test code ADDITIONAL ANTIBODY = 3492375) INFORMATION:DQ7 = DQB1*03:01; DQA1*05:03DQ7 = DQB1*03:19; DQA1*05:05DQ7 = DQB1*03:01; DQA1*06:01DQ9 = DQB1*03:03; DQA1*02:01DQ9 = DQB1*03:03; DQA1*03:02DQ8 = DQB1*03:02; DQA1*03:01DQ8 = DQB1*03:02; DQA1*03:02 Case number (test code = [id number]) C1Q class 1 & 2 antibody See link below for (test code = 3293658) PDF Lab Report [facility], diffusion, lung volumes, [facility]/[id number] 19:27:26 Test Item Value Reference Range Interpretation [...] (test code = 67.9 % 5368) [facility] xddxpzt6413-22-81 13:53:30 Test Item Value Reference Range Interpretation Comments POC glucose (test code = 124 mg/dL 65-99 H Ope rator Name: [id number]) Clint Bustamante RDevice ID: [id number] able : [facility] Notified vp of product Interpretation (test Abnormal code = 16438-3) [facility] antigen hiwuy6089-21-17 11:33:46 Test Item Value Reference Range Interpretation Comments SAB interpretation (test Additional Antibody code = 5950) Information:DQ2=DQB1 *02:01/DQA1*04:01, DQB1*02:01/DQA1*05:0 1UQ3=GZN1*04:02/DQA1 *04:18YG9=VYW5*03:01 /DPA1*01:03, DPB1*03:01/DPA1*02:0 1KT0=OIS7*04:02/DPA1 *01:11PQ45=EPK1*28:0 1/DPA1*01:03 SAB serum ID (test code = [id number] 5866) [facility] serum collection D&T 08/23/2021 05:49 AM (test code = 5867) SAB class I antibody A11,A74,A32,A3,A31,A assignment (test code = 30,A36,A1,A29,A66,A8 5870) 0,A26,A25,A43,A34,A3 3,B82 SAB cPRA class I (test code = 5868) SAB class II antibody DR18,DR17,DR13,DR14, assignment (test code = DR52,DR11,DR8,DQ7,DR 5871) 12,DQ9,DR9,DR7,DQ8,D Q2,DR4,DQ4,DP2,DP14, DP4,DP9,DP10,DP18,DP 20,DP17,DP3,DP28 SAB cPRA class II (test code = 5869) Case number (test code = [id number]) Single antigen beads See link below for (test code = 4604) PDF [facility]Protein, urine, [id number] 20:20:55 Test Item Value Reference Range Interpretation Comments Collection start date, urine (test 08/23/21 code = 33969-7) Collection start time, urine (test 8:40 code = 74364-3) Collection stop date, urine (test 08/24/21 code = 19869-6) Collection stop time, urine (test 8:40 code = 99418-5) Hours of collection (test code = 53086-8) Total volume, urine (test code = 800 mL 35031-2) Urine protein concentration (test 7 mg/dL code = 12117-1) Urine protein excretion (test code = mg/vol 2448) [facility]Creatinine level, urine, [id number] 20:20:52 Test Item Value Reference Range Interpretation Comments Collection start date, urine (test 08/23/21 code = 37283-3) Collection start time, urine (test 8:40 code = 11773-0) Collection stop date, urine (test 08/24/21 code = 90377-2) Collection stop time, urine (test 8:40 code = 08706-0) Hours of collection (test code = 37433-7) Total volume, urine (test code = 800 mL 98019-6) Urine creatinine concentration 114 mg/dL (test code = 75391-6) Urine creatinine excretion (test mg/vol code = 81545-6) Anabaptism GkzbnlyvMXHJ-KaO-4 (COVID-19) RNA [Presence] in Respiratory specimen by GUSTAVO with probe [id number] 20:48:05 Test Item Value Reference Range Interpretation Comments SARS-CoV-2 (COVID-19) RNA Not detected Not-Detected [Presence] in Respiratory specimen by GUSTAVO with probe detection (test code = 99868-9) 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 (test code = 49102-1) Whether the patient has symptoms related to condition of interest (test code = 87743-2) Patient was hospitalized because of this condition (test code = 03424-9) Whether the patient was admitted to intensive care unit (ICU) for condition of interest (test code = 29371-9) Whether patient resides in a congregate care setting (test code = 34727-3) ECG 12 [id number] 15:33:38 Test Item Value Reference Range Interpretation Comments Ventricular rate (test code = 253) Atrial rate (test code = 255) MI interval (test code = 266) QRSD interval [...] out Inferior infarct , age undetermined-Abnormal ECG- [facility] transplant [id number] 14:27:40 Test Item Value Reference Range Interpretation Comments HLA transplant evaluation See link below for (test code = 50985-4) PDF Lab Report Case number (test code = [id number]) [facility] ED Preliminary Interpretation - Not an [id number] 02:54:33 Test Item Value Reference Range Interpretation Comments REJI (test code = REJI) Orlando Balderrama MD 08/17/2021 10:33 [facility] [place] Interpretation - Not an OrderPerformed by: Orlando Balderrama MDAuthorized by: Orlando Balderrama MD ECG reviewed by ED Physician in the absence of a investigator narcotics: yes Interpretation: Interpretation: abnormal Rate: ECG rate: 80 ECG rate assessment: normal Rhythm: Rhythm: sinus rhythm QRS: QRS axis: Normal QRS intervals: NormalST segments: ST segments: NormalOther findings: Other findings: prolonged qTc interval Lab Interpretation Abnormal (test code = 27593-3) [facility] [Presence] in Respiratory specimen by GUSTAVO with probe [id number] 23:59:30 Test Item Value Reference Range Interpretation Comments SARS-CoV-2 (COVID-19) RNA Not detected Not-Detected [Presence] in Respiratory specimen by GUSTAVO with probe detection (test code = 55277-2) 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 (test code = 18318-9) Whether the patient has symptoms related to condition of interest (test code = 70359-4) Patient was hospitalized because of this condition (test code = 55600-0) Whether the patient was admitted to intensive care unit (ICU) for condition of interest (test code = 09282-1) Whether patient resides in a congregate care setting (test code = 68685-1) status (test code = 85207-0) SARS-CoV-2 (COVID-19) RNA [Presence] in Respiratory specimen by GUSTAVO with probe [id number] 14:46:31 Test Item Value Reference Range Interpretation Comments SARS-CoV-2 (COVID-19) RNA Not detected Not-Detected [Presence] in Respiratory specimen by GUSTAVO with probe detection (test code = 07090-8) 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 (test code = 06552-9) Whether the patient has symptoms related to condition of interest (test code = 57189-4) Patient was hospitalized because of this condition (test code = 49579-0) Whether the patient was admitted to intensive care unit (ICU) for condition of interest (test code = 11182-9) Whether patient resides in a congregate care setting (test code = 33218-5) status (test code = 12528-8) SARS-CoV-2 (COVID-19) RNA [Presence] in Respiratory specimen by GUSTAVO with probe [id number] 19:52:10 Test Item Value Reference Range Interpretation Comments SARS-CoV-2 (COVID-19) RNA Not detected Not-Detected [Presence] in Respiratory specimen by GUSTAVO with probe detection (test code = 96009-9) 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 (test code = 02547-4) Whether the patient has symptoms related to condition of interest (test code = 12078-0) Patient was hospitalized because of this condition (test code = 99009-9) Whether the patient was admitted to intensive care unit (ICU) for condition of interest (test code = 04305-8) Whether patient resides in a congregate care setting (test code = 98105-3) status (test code = 13535-8) SARS-CoV-2 (COVID-19) RNA [Presence] in Respiratory specimen by GUSTAVO with probe [id number] 19:31:11 Test Item Value Reference Range Interpretation Comments SARS-CoV-2 (COVID-19) RNA Not detected Not-Detected [Presence] in Respiratory specimen by GUSTAVO with probe detection (test code = 81828-7) 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 (test code = 84767-0) Whether the patient has symptoms related to condition of interest (test code = 43581-5) Patient was hospitalized because of this condition (test code = 80185-3) Whether the patient was admitted to intensive care unit (ICU) for condition of interest (test code = 37636-4) Whether patient resides in a congregate care setting (test code = 14730-4) status (test code = 75981-8) SARS-CoV-2 (COVID-19) RNA [Presence] in Respiratory specimen by GUSTAVO with probe [id number] 02:26:38 Test Item Value Reference Range Interpretation Comments SARS-CoV-2 (COVID-19) RNA Not detected Not-Detected [Presence] in Respiratory specimen by GUSTAVO with probe detection (test code = 28209-3) SARS-CoV-2 (COVID-19) RNA [Presence] in Respiratory specimen by GUSTAVO with probe [id number] 21:10:32 Test Item Value Reference Range Interpretation Comments SARS-CoV-2 (COVID-19) RNA Not detected Not-Detected [Presence] in Respiratory specimen by GUSTAVO with probe detection (test code = 76062-7) SARS-CoV-2 (COVID-19) RNA [Presence] in Respiratory specimen by GUSTAVO with probe [id number] 19:03:37 Test Item Value Reference Range Interpretation Comments SARS-CoV-2 (COVID-19) RNA Not detected Not-Detected [Presence] in Respiratory specimen by GUSTAVO with probe detection (test code = 51011-0) SARS-CoV-2 (COVID-19) RNA [Presence] in Respiratory specimen by GUSTAVO with probe [id number] 05:36:17 Test Item Value Reference Range Interpretation Comments SARS-CoV-2 (COVID-19) RNA Not detected Not-Detected [Presence] in Respiratory specimen by GUSTAVO with probe detection (test code = 70666-3) SARS-CoV-2 (COVID-19) IgG+IgM Ab [Presence] in Serum or Plasma by Immunoassay 2020-08-13 09:52:00 Test Item Value Reference Range Interpretation Comments SARS-CoV-2 (COVID-19) IgG+IgM Ab Not detected [Presence] in Serum or Plasma by Immunoassay (test code = 68700-9) SARS-CoV-2 (COVID-19) RNA [Presence] in Respiratory specimen by GUSTAVO with probe [id number] 04:46:40 Test Item Value Reference Range Interpretation Comments SARS-CoV-2 (COVID-19) RNA [Presence] Detected Not-Detected in Respiratory specimen by GUSTAVO with probe detection (test code = 01010-9) SARS-CoV-2 (COVID-19) RNA [Presence] in Respiratory specimen by GUSTAVO with probe [id number] 00:55:48 Test Item Value Reference Range Interpretation Comments SARS-CoV-2 (COVID-19) RNA Not detected Not-Detected [Presence] in Respiratory specimen by GUSTAVO with probe detection (test code = 82717-0) SARS-CoV-2 (COVID-19) RNA [Presence] in Respiratory specimen by GUSTAVO with probe [id number] 08:17:26 Test Item Value Reference Range Interpretation Comments SARS-CoV-2 (COVID-19) RNA Not detected Not-Detected [Presence] in Respiratory specimen by GUSTAVO with probe detection (test code = 02854-1) SARS-CoV-2 (COVID-19) RNA [Presence] in Respiratory specimen by GUSTAVO with probe [id number] 00:04:18 Test Item Value Reference Range Interpretation Comments SARS-CoV-2 (COVID-19) RNA Not detected Not-Detected [Presence] in Respiratory specimen by GUSTAVO with probe detection (test code = 17017-9) SARS-CoV-2 (COVID-19) RNA [Presence] in Respiratory specimen by GUSTAVO with probe [id number] 04:41:17 Test Item Value Reference Range Interpretation Comments SARS-CoV-2 (COVID-19) RNA Not detected Not-Detected [Presence] in Respiratory specimen by GUSTAVO with probe detection (test code = 70943-1) SARS-CoV-2 (COVID-19) RNA [Presence] in Respiratory specimen by GUSTAVO with probe [id number] 04:13:39 Test Item Value Reference Range Interpretation Comments SARS-CoV-2 (COVID-19) RNA Not detected Not-Detected [Presence] in Respiratory specimen by GUSTAVO with probe detection (test code = 91756-8)
[2022-03-14] MEDS ORDERED: ONDANSETRON 4 MG/2 ML VIAL ONE ×3 (03:09→15:24)
[2022-03-14] MEDS ORDERED: NA CHLORIDE 0.9% 1,000 ML ONE (03:09)
[2022-03-14 04:23] LABS: Absolute Lymphocytes (CBC) 1.6 K/uL (0.7-4.9); Hematocrit 28.6 % (36.0-45.0); Lymphocytes % 27.4 % (15.3-44.8); MCV 95.9 fL (80-100); MPV 8.3 fL (7.6-11.3); RBC Red Blood Cell Count 2.99 M/uL (3.86-4.86)
[2022-03-14 04:34] LABS: Albumin 2.9 g/dL (3.4-5.0); Bilirubin Total 2.2 mg/dL (0.2-1.0); Potassium 3.4 mmol/L (3.5-5.1); Protein, Total 6.4 g/dL (6.4-8.2)
[2022-03-14 05:44] VITALS: BMI 30.2
[2022-03-14] MEDS ORDERED: D5 0.45 NS 1,000 ML IV SCH (06:00)
[2022-03-14] MEDS ORDERED: BISMUTH SUBSALICYL 262MG/15ML-240 ML BTL PO PRN ×2 (07:52→08:10)
[2022-03-14] MEDS ORDERED: ACETAMINOPHEN 500 MG TAB PO PRN (07:54)
[2022-03-14] MEDS ORDERED: D5 0.45 NS 1,000 ML IV ONE (09:07)
--- NOTE | 2022-03-14 10:27 | P.HP ---
Certification for Inpatient Patient admitted to: Inpatient With expected LOS: >2 Midnights Patient will require the following post-hospital care: None Practitioner: I am a practitioner with admitting privileges, knowledge of patient current condition, hospital course, and medical plan of care. Services: Services provided to patient in accordance with Admission requirements found in Title 42 Section 412.3 of the Code of Federal Regulations Patient History Date of Service: 03/14/22 Primary Care Provider: anderson Reason for admission: crohns exacerbaton Allergies ceftriaxone [From Rocephin] Allergy (Verified 10/08/21 03:16) Anaphylaxis iodine Allergy (Verified 10/08/21 03:16) Anaphylaxis promethazine [From Phenergan] Allergy (Verified 10/08/21 03:16) Itching ciprofloxacin Adverse Reaction (Verified 01/17/22 08:20) Hives/Rash lactase [From Dairy Aid] Adverse Reaction (Verified 01/21/22 18:19) Nausea/Vomiting Fish Allergy (Uncoded 10/10/20 20:17) Rash Home Medications: Ondansetron [Zofran (Odt)*] 4 mg PO DAILY PRN 10/09/21 Rifaximin [Xifaxan] 550 mg PO BID 10/09/21 Spironolactone [Aldactone*] 50 mg PO DAILY 10/09/21 Ubrogepant [Ubrelvy] 100 mg PO SEECOM PRN 10/09/21 Gabapentin 300 mg PO BID 12/04/21 Ramelteon 8 mg PO BEDTIME 12/05/21 traMADol HCL [Ultram*] 50 mg PO Q6H PRN #10 tab 12/30/21 ARIPiprazole [Abilify*] 5 mg PO BEDTIME 01/17/22 Diphenoxylate HCl/Atropine [Diphenoxylate-Atrop 2.5-0.025] 1 each PO DAILY 01/17/22 Fluoxetine HCl [Prozac*] 20 mg PO DAILY 01/17/22 Furosemide [Lasix*] 20 mg PO BID 01/17/22 Ciprofloxacin HCl 500 mg PO BID #20 tablet 01/24/22 Hydrocort Acetate Suppos [Anucort-Hc Suppository*] 25 mg AL DAILY #30 supp 01/24/22 metroNIDAZOLE [Flagyl] 500 mg PO Q8H #30 tablet 01/24/22 nadoloL [Corgard*] 20 mg PO DAILY #30 tab 01/24/22 - Past Medical/Surgical History Has patient received pneumonia vaccine in the past: No Diabetic: No -: Crohn's Disease -: Chronic liver cirrhosis with TIPS procedure -: Depression with anxiety -: Neuropathy -: Insomnia -: Parkinson's -: CKD 3 -: Anemia chronic disease -: Chronic 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 -: Gout -: Insomnia -: Gout -: multiple abdominal surgery due to Crohn's -: TIPS procedure -: Bleeding esophageal varices surgery Psychosocial/ Personal History: Patient disabled, lives with family - Family History Mother -: Blood disorders Notes: recently from blood disease Father -: Heart disease - Social History Smoking Status: Current every day smoker Alcohol use: No CD- Drugs: No Caffeine use: Yes Review of Systems 10-point ROS is otherwise unremarkable Gastrointestinal: Nausea, Vomiting, Abdominal Pain, Diarrhea Physical Examination - Vital Signs Temperature: 98.0 F Blood Pressure: 121/56 Pulse: 83 Respirations: 17 Pulse Ox (%): 100 - Physical Exam General: Alert, Moderate distress HEENT: Atraumatic, PERRLA, Mucous membr. moist/pink, EOMI, Sclerae nonicteric Neck: Supple, 2+ carotid pulse no bruit, No LAD, Without JVD or thyroid abnormality Respiratory: Clear to auscultation bilaterally, Normal air movement Cardiovascular: Regular rate/rhythm, Normal S1 S2 Gastrointestinal: Normal bowel sounds, No tenderness Musculoskeletal: No tenderness Integumentary: No rashes Neurological: Normal gait, Normal speech, Normal strength at 5/5 x4 extr, Normal tone, Normal affect Lymphatics: No axilla or inguinal lymphadenopathy - Studies Laboratory Data (last 24 hrs) 03/14/22 03:56: Sodium 141, Potassium 3.4 L, BUN 25 H, Creatinine 1.59 H, Glucose 97, Total Bilirubin 2.2 H, AST 31, ALT 19, Alkaline Phosphatase 68, Lipase 64 L 03/14/22 03:56: WBC 6.0, Hgb 9.8 L, Hct 28.6 L, Plt Count 95 L Assessment and Plan - Problems (Diagnosis) (1) Exacerbation of Crohn's disease Current Visit: No Status: Chronic Plan: will order stool studies. She had antibiotics 3 weeks ago in [facility]. Will start her on fluids, steroids, pain meds. Will start po flagyl for the patient. Consult to Dr. Chu. Her regular GI doctor. Qualifiers: Digestive disease complication type: without complication Qualified Code(s): K50.90 - Crohn's disease, unspecified, without complications (2) Depression Current Visit: Yes Status: Acute Plan: continue her home medications Qualifiers: Depression Type: major depressive disorder (3) Acute renal failure superimposed on stage 2 chronic kidney disease Current Visit: Yes Status: Acute Plan: she has a good baseline creatine. Will start her on fluids. Qualifiers: Acute renal failure type: unspecified Qualified Code(s): N17.9 - Acute kidney failure, unspecified; N18.2 - Chronic kidney disease, stage 2 (mild) - Advance Directives Does patient have a Living Will: No Does patient have a Durable POA for Healthcare: No - Code Status/Comfort Care Code Status Assessed: Yes Code Status: Full Code Physician Review: Patient Assessed, Agree with Above Assessment and Plan Critical Care: No Time Spent Managing Pts Care (In Minutes): 50
[2022-03-14] MEDS ORDERED: HYDROMORPHONE HCL 2 MG/ML inj ONE ×2 (10:32→15:24)
--- NOTE | 2022-03-14 10:45 | EDPHYS ---
Physician Documentation [facility] Name: Bella Barron Age: 61 yrs Sex: Female : 1960 Arrival Date: 03/14/2022 Time: 01:51 Bed 15 Private MD: ED Physician Beau Encarnacion HPI: 03/14 02:18 This 61 yrs old Female presents to ER via Wheelchair with complaints of rn Nausea/Vomiting/Diarrhea, Abdominal Pain. 02:18 The patient presents to the emergency department with nausea, vomiting, diarrhea, rn abdominal pain, of the abdomen diffusely. Onset: The symptoms/episode began/occurred 3 day(s) ago. Possible causes: unknown. The symptoms are aggravated by nothing. The symptoms are alleviated by nothing. Severity of symptoms: At their worst the symptoms were moderate in the emergency department the symptoms are unchanged. The patient has experienced similar episodes in the past. The patient has been recently seen by a physician:. Pt reports nausea/vomiting/diarrhea/abd pain for a few days. Reports recurrent colitis and cdiff colitis. Sees Dr. Rosas. Denies blood in stool. + vomiting. No fever. Has not been on abx for 2 weeks. . Historical: - Allergies: 02:04 Iodine; sm5 02:04 Lactase; sm5 02:04 Ciprofloxacin; sm5 02:04 Promethazine; sm5 02:04 ceftriaxone; sm5 - Home Meds: 02:04 aripiprazole 10 mg Oral tab 1 tab once daily [Active]; furosemide 20 mg Oral tab 1 tab sm5 2 times per day [Active]; lorazepam 0.5 mg Oral tab [Active]; midodrine 5 mg Oral tab [Active]; rifaximin 550 mg Oral tab [Active]; spironolactone 50 mg Oral tab [Active]; - Immunization history:: Adult Immunizations up to date. - Social history:: Smoking status: Patient denies any tobacco usage or history of. - Family history:: not pertinent. - Hospitalizations: : No recent hospitalization is reported. ROS: 02:18 Constitutional: Negative for fever, chills, and weight loss, Eyes: Negative for injury, rn pain, redness, and discharge, Neck: Negative for injury, pain, and swelling, Cardiovascular: Negative for chest pain, palpitations, and edema, Respiratory: Negative for shortness of breath, cough, wheezing, and pleuritic chest pain, Abdomen/GI: + abd pain and nausea/vomiting/diarrhea Back: Negative for injury and pain, MS/Extremity: Negative for injury and deformity, Skin: Negative for injury, rash, and discoloration, Neuro: Negative for headache, weakness, numbness, tingling, and seizure. Exam: 02:18 Constitutional: This is a well developed, well nourished patient who is awake, alert, rn and in no acute distress. Ambulatory to room without difficulty. Head/Face: Normocephalic, atraumatic. Cardiovascular: Regular rate and rhythm. No pulse deficits. Respiratory: No increased work of breathing, no retractions or nasal flaring. Abdomen/GI: soft, mild right sided tenderness, no rebound. Skin: Warm, dry MS/ Extremity: Pulses equal, no cyanosis. Neuro: Awake and alert, GCS 15 Vital Signs: 02:02 BP 134 / 61; Pulse 80; Resp 18; Temp 98.4(O); Pulse Ox 97% on R/A; Weight 68.04 kg; 5 Height 4 ft. 11 in. (149.86 cm); Pain 10/10; 04:09 BP 121 / 56; Pulse 83; Resp 17; Pulse Ox 98% on R/A; [facility] 02:02 Body Mass Index 30.30 (68.04 kg, 149.86 cm) [facility] MDM: 01:51 Patient medically screened. rn 04:55 Differential diagnosis: Nonspecific abd pain, gastritis, diverticulitis, viral rn gastroenteritis, gastroenteritis, colitis, c diff colitis. Data reviewed: vital signs, nurses notes, lab test result(s), radiologic studies, CT scan, and as a result, I will admit patient. Counseling: I had a detailed discussion with the patient and/or guardian regarding: the historical points, exam findings, and any diagnostic results supporting the discharge/admit diagnosis, lab results, radiology results, the need for further work-up and treatment in the hospital. Response to treatment: the patient's symptoms have mildly improved after treatment, and as a result, I will admit patient. Admission orders: after a detailed discussion of the patient's condition and case, the admit orders are written by me. ED course: CT shows fluid filled colon with imminent diarrhea, pt feels weak, continues to run to bathroom, states pain not controlled. Will admit to Dr. Aceves and consult her GI doctor, Dr. Rosas. . 03/14 02:02 Order name: CBC with Diff rn 03/14 02:02 Order name: CMP rn 03/14 02:02 Order name: Lipase rn 03/14 02:02 Order name: SARS-COV-2 RT PCR (Document "Date of Onset" if Symptomatic) rn 03/14 02:17 Order name: Stool Culture rn 03/14 02:17 Order name: CDIFF rn 03/14 02:14 Order name: CT Abd/Pelvis - Without Contrast rn 03/14 02:48 Order name: C.difficile GDH Ag EDMS 03/14 02:48 Order name: Stool Culture EDWV 03/14 03:03 Order name: Comprehensive Metabolic Panel; Complete Time: 04:46 EDMS 03/14 03:03 Order name: Lipase; Complete Time: 04:46 EDMS 03/14 03:03 Order name: CBC with Automated Diff; Complete Time: 04:46 EDMS 03/14 03:15 Order name: SARS-COV-2 RT PCR; Complete Time: 04:46 EDMS 03/14 11:44 Order name: Stool Culture EDMS 03/14 02:02 Order name: IV Saline Lock; Complete Time: 03:08 rn 03/14 02:02 Order name: Labs collected and sent; Complete Time: 03:08 rn 03/14 02:19 Order name: Abdomen EDMS Administered Medications: 03:08 Drug: NS 0.9% 1000 ml Route: IV; Rate: 1 bolus; Site: right wrist; sm5 03:08 Drug: Zofran (Ondansetron) 4 mg Route: IVP; Site: right wrist; sm5 03:30 Not Given (Patient Refused): morphine 4 mg IVP once over 4 mins jb4 Disposition Summary: 03/14/22 04:58 Hospitalization Ordered Hospitalization Status: Observation rn Provider: Jairo Aceves rn Condition: Stable rn Problem: new rn Symptoms: are unchanged rn Bed/Room Type: Standard rn Location: Telemetry/MedSurg (observation)(03/14/22 14:46) bd Room Assignment: [facility](03/14/22 14:46) bd Diagnosis - Infectious gastroenteritis and colitis, unspecified rn - Muscle weakness (generalized) rn - Dehydration rn Forms: - Medication Reconciliation Form rn - SBAR form rn Signatures: Dispatcher [employer] EDJada Doty Martha, RN Beau Forbes MD MD rn Mazur, Sarah, RN RN sm5 Leon Lowery RN jb4 Corrections: (The following items were deleted from the chart) 05:24 04:58 Telemetry/MedSurg (observation) liliane 05:24 04:58 liliane mw 14:46 05:24 [facility] ER HOLD [facility] 14:46 05:24 ERHOLD- [facility]
--- NOTE | 2022-03-14 10:45 | ER ---
Nurse's Notes [facility] Name: Bella Barron Age: 61 yrs Sex: Female : 1960 Arrival Date: 03/14/2022 Time: 01:51 Bed 15 Private MD: Diagnosis: Infectious gastroenteritis and colitis, unspecified;Muscle weakness (generalized);Dehydration Presentation: 03/14 02:02 Chief complaint: Spouse and/or significant other states: pt has been having diarrhea sm5 for the past few days, started vomiting about an hour [place]. thinks pt has c diff. Coronavirus screen: diarrhea, vomiting. Ebola Screen: No symptoms or risks identified at this time. Initial Sepsis Screen: Does the patient meet any 2 criteria? No. Patient's initial sepsis screen is negative. Does the patient have a suspected source of infection? Yes: Acute abdominal pain. Risk Assessment: Do you want to hurt yourself or someone else? Patient reports no desire to harm self or others. Onset of symptoms was March 14, 2022. 02:02 Method Of Arrival: Wheelchair 5 02:02 Acuity: OLEG 3 sm5 Triage Assessment: 02:07 General: Appears in no apparent distress. Behavior is cooperative. Pain: Complains of sm5 pain in back and abdomen. Neuro: Level of Consciousness is awake, alert, obeys commands, Oriented to person, place, time, situation. Cardiovascular: Capillary refill < 3 seconds Patient's skin is warm and dry. Respiratory: Airway is patent Trachea midline Respiratory effort is even, unlabored. GI: Reports lower abdominal pain, diarrhea, nausea, vomiting. Historical: - Allergies: 02:04 Iodine; sm5 02:04 Lactase; sm5 02:04 Ciprofloxacin; sm5 02:04 Promethazine; sm5 02:04 ceftriaxone; sm5 - Home Meds: 02:04 aripiprazole 10 mg Oral tab 1 tab once daily [Active]; furosemide 20 mg Oral tab 1 tab sm5 2 times per day [Active]; lorazepam 0.5 mg Oral tab [Active]; midodrine 5 mg Oral tab [Active]; rifaximin 550 mg Oral tab [Active]; spironolactone 50 mg Oral tab [Active]; - Immunization history:: Adult Immunizations up to date. - Social history:: Smoking status: Patient denies any tobacco usage or history of. - Family history:: not pertinent. - Hospitalizations: : No recent hospitalization is reported. Screenin:07 Abuse screen: Denies threats or abuse. Denies injuries from another. Nutritional sm5 screening: No deficits noted. Tuberculosis screening: No symptoms or risk factors identified. Fall Risk None identified. Assessment: 02:22 Reassessment: see triage assessment. GI: Reports lower abdominal pain, diarrhea, sm5 nausea, vomiting. 04:09 Reassessment: No changes from previously documented assessment. Patient and/or family 5 updated on plan of care and expected duration. Pain level reassessed. Vital Signs: 02:02 BP 134 / 61; Pulse 80; Resp 18; Temp 98.4(O); Pulse Ox 97% on R/A; Weight 68.04 kg; sm5 Height 4 ft. 11 in. (149.86 cm); Pain 10/10; 04:09 BP 121 / 56; Pulse 83; Resp 17; Pulse Ox 98% on R/A; sm5 02:02 Body Mass Index 30.30 (68.04 kg, 149.86 cm) 5 ED Course: 01:51 Patient arrived in ED. ja2 01:51 Beau Encarnacion MD is Attending Physician. rn 02:02 Marianela William RN is Primary Nurse. 5 02:04 Triage completed. 5 02:07 Arm band placed on right wrist. sm5 02:07 Patient has correct armband on for positive identification. Bed in low position. Call 5 light in reach. Side rails up X2. 02:47 Abdomen In Process Unspecified. EDMS 03:05 Inserted saline lock: 22 gauge in right wrist, using aseptic technique. kl 04:57 Jairo Aceves MD is Hospitalizing Provider. rn 07:46 Primary Nurse role handed off by Marianela William, AMARILIS bd 10:46 Makenna Burgos, AMARILIS is Primary Nurse. ll1 Administered Medications: 03:08 Drug: NS 0.9% 1000 ml Route: IV; Rate: 1 bolus; Site: right wrist; sm5 03:08 Drug: Zofran (Ondansetron) 4 mg Route: IVP; Site: right wrist; sm5 03:30 Not Given (Patient Refused): morphine 4 mg IVP once over 4 mins jb4 Medication: 02:07 VIS not applicable for this client. sm5 Outcome: 04:58 Decision to Hospitalize by Provider. rn 15:52 Patient left the ED. [email or web address] Signatures: Dispatcher [employer] EDMS Jada Jha Kimberly, RN Beau Cowan MD MD rn Lewis, Lynsay, RN RN ll1 Bonny Damon Sarah, RN RN sm5 Shavon Lorenzana RN RN kr3 Leon Lowery RN jb4
[2022-03-14 10:49] LABS: C.diff Antigen/Toxin Ag pos : Tox pos (NEG : NEG)
[2022-03-14] MEDS: D5 0.45 NS 1,000 ML IV SCH ×2 (11:00→17:13)
[2022-03-14] MEDS: ONDANSETRON 4 MG/2 ML VIAL IV PRN (11:15)
[2022-03-14] MEDS: HYDROMORPHONE HCL 2 MG/ML inj IV PRN ×3 (11:16→22:46)
[2022-03-14] MEDS ORDERED: metroNIDAZOLE 500 MG TABLET ONE (11:40)
[2022-03-14] MEDS: metroNIDAZOLE 500 MG TABLET PO SCH ×3 (12:00→23:38)
--- NOTE | 2022-03-14 13:21 | RAD REPORT ---
EXAM DESCRIPTION: CT - Abdomen Pelvis Wo Contrast - 03/14/2022 6:29 am CLINICAL HISTORY: 61 years, Female, abdominal pain, vomiting, diarrhea, possible colitis COMPARISON: 01/20/2022 TECHNIQUE: Multiple transaxial tomograms of the abdomen and pelvis were performed from the lung base s to the symphysis pubis 5 mm slice thickness at 5 mm interval reconstruction, without administration of IV and oral contrast. Multiplanar reformats in the sagittal and coronal plane were generated and reviewed. This exam was performed according to our departmental dose-optimization protocol, which includes auto mated exposure control, adjustment of the mA and/or kV according to patient size and/or use of iterat chago reconstruction technique. FINDINGS: The lack of IV and oral contrast limits evaluation of solid organs, subtle lesions cannot be excluded. The lung bases demonstrate to be clear. Grossly the unopacified liver, pancreas, spleen and adrenal glands demonstrate to be within normal li mits, no significant focal lesions were identified. Negative identified is the presence of stent wi thin the right hepatic vein into the main portal vein corresponding to previous TIPS procedure. Surgical clips within the gallbladder fossa correspond to previous cholecystectomy. There is anterior abdominal wall mesh hernia repair. The kidneys again demonstrated presence of bilateral calcification most likely corresponding to nephr olithiasis. Again there is a mid pole left renal cyst measuring 5.1 cm on image 27. Grossly the unopacified stomach, small bowel and large bowel demonstrate to be within normal limits. There is status post right hemicolectomy. There is air-fluid filled large bowel corresponding to immi nent diarrhea perhaps related to patient's medications. The urinary bladder demonstrate to be within normal limits. The uterus is absent. There are no adnexa l masses. The aorta demonstrate minimal atheromatous plaque formation. There is no retroperitoneal lymphadenopathy. There is no evidence for ascites. The rest of the soft tissue demonstrate to be gr ossly unremarkable. IMPRESSION: Air-fluid filled large bowel corresponding to imminent diarrhea perhaps related to patie nt's medications. Status post right hemicolectomy. Bilateral nephrolithiasis. Left renal cyst. Status post TIPS procedure. Anterior abdominal wall mesh hernia repair. Electronically signed by: Scott Kennedy MD 03/14/2022 3:36 AM CDT Due to temporary technical issues with the PACS/Fluency reporting system, reports are being signed by the in house radiologists without review as a courtesy to insure prompt reporting. The interpreting radiologist is fully responsible for the content of the report.
[2022-03-14] MEDS ORDERED: dexAMETHasone 4 MG/ML VIAL IV SCH (17:00)
[2022-03-14] MEDS: ENOXAPARIN 30 MG/0.3 ML SQ SCH (17:18)
[2022-03-14] MEDS: VANCOMYCIN ORAL SOLN 250 MG/5 ML OSYR PO SCH (21:00)
[2022-03-14] MEDS: Ringers Lactate 1,000 ML IV SCH (21:09)
[2022-03-14] MEDS: GABAPENTIN 300 MG CAP PO SCH (21:09)
[2022-03-14] MEDS: ARIPiprazole 5 MG TAB PO SCH (21:09)
--- NOTE | 2022-03-14 23:39 | CON ---
Date of Consultation: 03/14/2022 Reason For Consultation: Acute onset of right and left lower quadrant pain, associated change in bowel habits, diarrhea, and nausea and vomiting. History Of Present Illness: This patient is a 61-year-old white female with history of Crohn disease, who presented to the hospital with complaints of right greater than left lower quadrant pain, change in bowel habits, diarrhea, nausea, vomiting. Recently, the patient had been doing well on her Remicade infusions for her Crohn disease until this began. The patient went to her primary care doctor, who saw the patient was dehydrating and admitted the patient for further evaluation and care. Past Medical History: Significant for Crohn disease, liver disease, cirrhosis, status post TIPS procedure, depression, anxiety, neuropathy, insomnia, Parkinson disease, chronic kidney disease stage 3, anemia of chronic disease, chronic 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, gout, insomnia. Multiple abdominal surgeries for Crohn's, TIPS procedure with bleeding, and esophageal varices surgery, which is TIPS. Family History: Mother with blood disorders, recently of blood disease. Father with heart disease. Social History: Current everyday smoker. No alcohol. No drugs. Review of Systems: Reveals right greater than left lower quadrant pain, nausea, vomiting, and diarrhea, which is new. The patient denies any melena, hematochezia, hematemesis, coffee-grounds emesis, hematuria, dysuria, polydipsia, chest pain, shortness of breath, seizure, syncope. She does have fatigue and feels "sick." She says no joint pains, muscle aches, joint aches, backaches, rashes. No chest pain, shortness of breath, seizure, syncope. Physical Examination: Vital Signs: The patient is 4 feet 11, 150 pounds, BMI 30.3 kg/m2, temperature of 98.2 degrees Fahrenheit, pulse 87, respirations 17, blood pressure 137/75, O2 saturation 98% on room air. General: She is a middle-aged woman lying in bed, saying she is feels tired and weak, diarrhea, somewhat dilapidated. HEENT: Normocephalic, atraumatic. Anicteric. Pupils equal, round, and reactive to light. Anicteric. Oropharynx clear. Neck: Supple. No masses. Respirations: Clear to auscultation bilaterally. Cardiac: Regular rate and rhythm. No gallops. Abdomen: Positive bowel sounds. Soft, nondistended. Generalized tenderness. No peritoneal or Mi sign. No rebound. Extremities: No clubbing, cyanosis, or edema. 2+ pulses. Neuro: Alert and oriented x3. Gross nonfocal. 5/5 motor. Sensation intact to light touch. Home Medications: Include Zofran; Xifaxan; Aldactone; Abilify; gabapentin; ramelteon; Ultram; Lomotil; Prozac; Lasix; ciprofloxacin, even though she says she is allergic to it; Anucort; Flagyl; nadolol or Corgard. Allergies: TO CIPROFLOXACIN, CEFTRIAXONE, IODINE, PROMETHAZINE, LACTATE, FISH ALLERGY. PATIENT STATES, IN REALITY, SHE DOES NOT HAVE CIPROFLOXACIN ALLERGY BUT UNTIL AND UNLESS SHE ATTESTS TO THAT AND PUT A WRITTEN STATEMENT STATING THAT SHE IS NOT ALLERGIC TO CIPROFLOXACIN TO RECEIVE THAT MEDICINE IF NEEDED IN THE FUTURE. Laboratory Data: The patient's white count is 6.0, hemoglobin of 9.8, hematocrit 28.6, MCV of 96, platelet count 95, polys of 54%; lymphocytes 27%, monocytes 14%, eosinophils 4%. The patient has a sodium 141, potassium 3.4, chloride 107, bicarb 26, BUN of 25, creatinine of 1.6, glucose 97, calcium 8.3, total bilirubin 2.2, AST of 31, ALT of 19, alkaline phosphatase 68, total protein 6.4, albumin 2.9, globulin 3.5, lipase of 64. Serologies: COVID-[address] scan reveals air-fluid bowel loops consistent with diarrhea, perhaps patient's medications, right hemicolectomy changes, bilaterally nephrolithiasis, left renal cyst, TIPS procedure evident, anterior abdominal wall mesh and hernia repair evident as well. Impression: 1. Acute change in bowel habits, diarrhea, right greater than left lower quadrant pain, nausea, vomiting. This could be due to a Crohn disease flare versus infection versus other. 2. History of inflammatory bowel disease, Crohn disease, since 16 years old and other as per above. Recommendations: 1. Check stool studies. 2. Continue IV fluids. 3. Continue IV antibiotics. 4. Continue IV steroids. 5. Continue pain medicine, antiemetics. 6. Clear liquid diet. Addendum: C diff antigen toxin was positive for toxin A. So will start Vancomycin po qid. CHUCK/MICHELLE Voice ID: [id number] Report ID: [id number] MTDD
[2022-03-15] MEDS: Ringers Lactate 1,000 ML IV SCH ×3 (04:00→21:00)
[2022-03-15] MEDS: metroNIDAZOLE 500 MG TABLET PO SCH ×4 (05:20→23:06)
[2022-03-15] MEDS: HYDROMORPHONE HCL 2 MG/ML inj IV PRN ×4 (05:20→21:37)
[2022-03-15 05:42] LABS: Absolute Lymphocytes (CBC) 0.5 K/uL (0.7-4.9); Hematocrit 28.8 % (36.0-45.0); Lymphocytes % 13.5 % (15.3-44.8); MCV 96.3 fL (80-100); MPV 8.4 fL (7.6-11.3); RBC Red Blood Cell Count 2.99 M/uL (3.86-4.86)
[2022-03-15 05:53] LABS: Potassium 3.7 mmol/L (3.5-5.1)
[2022-03-15] MEDS: GABAPENTIN 300 MG CAP PO SCH ×2 (08:29→21:36)
[2022-03-15] MEDS: VANCOMYCIN ORAL SOLN 250 MG/5 ML OSYR PO SCH ×4 (08:29→21:00)
[2022-03-15] MEDS: FLUOXETINE 20 MG CAP PO SCH (08:29)
[2022-03-15] MEDS ORDERED: WATER FOR INJ,STERILE 10 ML IM PRN (09:00)
[2022-03-15] MEDS ORDERED: ZIPRASIDONE MESYLA 20 MG/VIAL IM PRN (09:00)
[2022-03-15] MEDS ORDERED: LORazepam 2 MG/ML VIAL IV ONE (09:00)
--- NOTE | 2022-03-15 09:06 | P.PN ---
Subjective Date of Service: 03/15/22 Primary Care Provider: anderson Chief Complaint: crohns exacerbaton Subjective: No new changes Review of Systems 10-point ROS is otherwise unremarkable General: Other (agitation) Gastrointestinal: Vomiting, Diarrhea Physical Examination - Vital Signs Temperature: 97.8 F Blood Pressure: 139/68 Pulse: 91 Respirations: 17 Pulse Ox (%): 94 - Physical Exam General: Alert, In no apparent distress HEENT: Atraumatic, PERRLA, EOMI Neck: Supple, JVD not distended Respiratory: Clear to auscultation bilaterally, Normal air movement Cardiovascular: Regular rate/rhythm, Normal S1 S2 Gastrointestinal: Normal bowel sounds, No tenderness Musculoskeletal: No tenderness Integumentary: No rashes Neurological: Normal speech, Normal tone, Normal affect Lymphatics: No axilla or inguinal lymphadenopathy - Studies Laboratory Data (last 24 hrs) 03/14/22 02:02: Sodium Cancelled, Potassium Cancelled, BUN Cancelled, Creatinine Cancelled, Glucose Cancelled, Total Bilirubin Cancelled, AST Cancelled, ALT Cancelled, Alkaline Phosphatase Cancelled, Lipase Cancelled 03/14/22 02:02: WBC Cancelled, Hgb Cancelled, Hct Cancelled, Plt Count Cancelled Assessment And Plan - Current Problems (Diagnosis) (1) Exacerbation of Crohn's disease Current Visit: No Status: Chronic Plan: will order stool studies. She had antibiotics 3 weeks ago in [facility]. Will start her on fluids, steroids, pain meds. Will start po flagyl for the patient. Consult to Dr. Chu. Her regular GI doctor. Qualifiers: Digestive disease complication type: without complication Qualified Code(s): K50.90 - Crohn's disease, unspecified, without complications (2) Depression Current Visit: Yes Status: Acute Plan: continue her home medications Qualifiers: Depression Type: major depressive disorder (3) Acute renal failure superimposed on stage 2 chronic kidney disease Current Visit: Yes Status: Acute Plan: she has a good baseline creatine. Will start her on fluids. Qualifiers: Acute renal failure type: unspecified Qualified Code(s): N17.9 - Acute kidney failure, unspecified; N18.2 - Chronic kidney disease, stage 2 (mild) Discharge Plan: Home Plan to discharge in: 48 Hours Physician Review: Patient Assessed, Agree with Above Assessment and Plan Critical Care: No Time Spent Managing PTS Care (In Minutes): 20
[2022-03-15] MEDS: ONDANSETRON 4 MG/2 ML VIAL IV PRN (10:02)
[2022-03-15] MEDS: ENOXAPARIN 30 MG/0.3 ML SQ SCH (15:34)
--- NOTE | 2022-03-15 18:29 | P.PN ---
Subjective Date of Service: 03/15/22 Primary Care Provider: anderson Chief Complaint: Chg BHs/diarrhea, RLQ/LLQ pain, N/V, h/o Crohn's disease Subjective: Improving (Feels better on Vancomycin for new C diff diagnosis. She wants to advance diet to solid food ANN. Steroids discontinued yesterday.) Review of Systems 10-point ROS is otherwise unremarkable General: Weakness, Malaise (Improved) Gastrointestinal: Abdominal Pain (Improved.), Diarrhea (Improved.) Physical Examination - Vital Signs Temperature: 97.8 F Blood Pressure: 120/47 Pulse: 102 Respirations: 16 Pulse Ox (%): 96 Assessment And Plan - Current Problems (Diagnosis) (1) Clostridioides difficile diarrhea Current Visit: Yes Status: Acute Comment: Improved on Vancomycin 125 mg po qid. (2) RLQ abdominal pain Current Visit: Yes Status: Acute (3) LLQ abdominal pain Current Visit: Yes Status: Acute (4) Change in bowel habits Current Visit: No Status: Acute (5) Diarrhea Current Visit: No Status: Acute (6) Nausea & vomiting Current Visit: No Status: Acute - Plan REC: 1) continue Vancomycin 125 mg po qid 2) steroids discontinued yesterday 3) FL to low residue diet as tolerated Physician Review: Patient Assessed, Agree with Above Assessment and Plan
[2022-03-15] MEDS: ARIPiprazole 5 MG TAB PO SCH (21:36)
[2022-03-15] MEDS: Banana Flakes/T-Galactooligos 1 Dose Packet PO SCH (21:37)
[2022-03-15 23:17] VITALS: O2SAT 94
[2022-03-16] MEDS: HYDROMORPHONE HCL 2 MG/ML inj IV PRN ×3 (01:58→11:27)
[2022-03-16] MEDS: Ringers Lactate 1,000 ML IV SCH ×3 (06:00→08:39)
[2022-03-16] MEDS: metroNIDAZOLE 500 MG TABLET PO SCH ×2 (06:00→12:33)
--- NOTE | 2022-03-16 08:20 | P.DS ---
Admission Date: 03/14/22 Discharge Date: 03/16/22 Primary Care Provider: anderson Disposition: ROUTINE DISCHARGE Discharge Condition: GOOD Reason for Admission: Chg BHs/diarrhea, RLQ/LLQ pain, N/V, h/o Crohn's disease - Problems (1) Clostridioides difficile diarrhea Current Visit: Yes Status: Acute (2) Depression Current Visit: Yes Status: Acute Qualifiers: Depression Type: major depressive disorder (3) Acute renal failure superimposed on stage 2 chronic kidney disease Current Visit: Yes Status: Acute Qualifiers: Acute renal failure type: unspecified Qualified Code(s): N17.9 - Acute kidney failure, unspecified; N18.2 - Chronic kidney disease, stage 2 (mild) Brief History of Present Illness: Patient was admitted with intractable diarrhea. Started on iv steroids and flagyl Pending stool cultures Hospital Course: Patient is improving. was positive for cdif. Will send her home on 14 days of oral flagyl and vancomycin. She was seen by Dr. Chu. tolerating orals foods. No Vomiting or diarrhea. Will have her follow up in the office and with Dr. Chu Vital Signs/Physical Exam: Temp Pulse Resp BP Pulse Ox 97.0 F 83 16 106/54 L 94 03/16/22 04:00 03/16/22 04:00 03/16/22 06:44 03/16/22 04:00 03/16/22 06:44 General: Alert, In no apparent distress HEENT: Atraumatic, PERRLA, EOMI Neck: Supple, JVD not distended Respiratory: Clear to auscultation bilaterally, Normal air movement Cardiovascular: Regular rate/rhythm, Normal S1 S2 Gastrointestinal: Normal bowel sounds, No tenderness Musculoskeletal: No tenderness Integumentary: No rashes Neurological: Normal speech, Normal tone, Normal affect Lymphatics: No axilla or inguinal lymphadenopathy Laboratory Data at Discharge: WBC 3.6 K/uL (4.3-10.9) L D 03/15/22 05:23 Hgb 9.9 g/dL (12.0-15.0) L 03/15/22 05:23 Hct 28.8 % (36.0-45.0) L 03/15/22 05:23 Plt Count 90 K/uL (152-406) L 03/15/22 05:23 Sodium 139 mmol/L (136-145) 03/15/22 05:23 Potassium 3.7 mmol/L (3.5-5.1) 03/15/22 05:23 BUN 18 mg/dL (7-18) 03/15/22 05:23 Creatinine 1.44 mg/dL (0.55-1.3) H 03/15/22 05:23 Glucose 154 mg/dL (74-106) H 03/15/22 05:23 Total Bilirubin 2.2 mg/dL (0.2-1.0) H 03/14/22 03:56 AST 31 U/L (15-37) 03/14/22 03:56 ALT 19 U/L (12-78) 03/14/22 03:56 Alkaline Phosphatase 68 U/L (45-117) 03/14/22 03:56 Lipase 64 U/L (73-393) L 03/14/22 03:56 Home Medications: RX: Ondansetron [Zofran (Odt)*] 4 mg PO DAILY PRN 10/09/21 RX: Rifaximin [Xifaxan] 550 mg PO BID 10/09/21 RX: Spironolactone [Aldactone*] 50 mg PO DAILY 10/09/21 RX: Ubrogepant [Ubrelvy] 100 mg PO SEECOM PRN 10/09/21 RX: Gabapentin 300 mg PO BID 12/04/21 RX: Ramelteon 8 mg PO BEDTIME 12/05/21 RX: traMADol HCL [Ultram*] 50 mg PO Q6H PRN #10 tab 12/30/21 RX: ARIPiprazole [Abilify*] 5 mg PO BEDTIME 01/17/22 RX: Diphenoxylate HCl/Atropine [Diphenoxylate-Atrop 2.5-0.025] 1 each PO DAILY 01/17/22 RX: Fluoxetine HCl [Prozac*] 20 mg PO DAILY 01/17/22 RX: Furosemide [Lasix*] 20 mg PO BID 01/17/22 RX: Ciprofloxacin HCl 500 mg PO BID #20 tablet 01/24/22 RX: Hydrocort Acetate Suppos [Anucort-Hc Suppository*] 25 mg [place] DAILY #30 supp 01/24/22 RX: nadoloL [Corgard*] 20 mg PO DAILY #30 tab 01/24/22 metroNIDAZOLE [Flagyl] 500 mg PO Q8H #30 tablet 01/24/22 RX: Vancomycin Oral Soln [Vancocin HCl*] 10 ml PO QID 14 Days #560 ml 03/16/22 RX: metroNIDAZOLE [Flagyl*] 500 mg PO Q6HR #56 tab 03/16/22 New Medications: RX: metroNIDAZOLE [Flagyl*] 500 mg PO Q6HR #56 tab RX: Vancomycin Oral Soln [Vancocin HCl*] 10 ml PO QID 14 Days #560 ml Diet: [place] Activity: Ad amrita Followup: Jairo Aceves MD [ACTIVE - CAN ADMIT] - 1 Week Tom Rosas MD [ASSOCIATE-ACTIVE - CAN ADMIT] - 1 Week Physician Review: Patient Assessed, Agree with Above Assessment and Plan Time spent managing pt's care (in minutes): 30
[2022-03-16] MEDS: Banana Flakes/T-Galactooligos 1 Dose Packet PO SCH (08:38)
[2022-03-16] MEDS: FLUOXETINE 20 MG CAP PO SCH (08:38)
[2022-03-16] MEDS: GABAPENTIN 300 MG CAP PO SCH (08:38)
[2022-03-16] MEDS: VANCOMYCIN ORAL SOLN 250 MG/5 ML OSYR PO SCH ×2 (09:11→12:33)
[2022-03-16 12:32] VITALS: BP 123/56; TEMP 97.2
== END 2022-03-16 13:10 | disposition home or self-care (01) | DRG 372 ==
LOC: ER 01:47 → ERHOLD 05:00 → 2ND 15:07 → OBSVTOIN 21:51
PROVIDERS: ADMIT Internal Medicine; ATTEND Internal Medicine
DX: A04.72 Enterocolitis due to Clostridium difficile, not specified as recurrent (principal); K50.90 Crohn's disease, unspecified, without complications; N17.9 Acute kidney failure, unspecified; N18.2 Chronic kidney disease, stage 2 (mild); F32.A Depression, unspecified; G20 Parkinson's disease; F41.8 Other specified anxiety disorders; G62.9 Polyneuropathy, unspecified; G47.00 Insomnia, unspecified; D69.6 Thrombocytopenia, unspecified; K74.60 Unspecified cirrhosis of liver; M10.9 Gout, unspecified; D63.1 Anemia in chronic kidney disease; R11.2 Nausea with vomiting, unspecified; F17.210 Nicotine dependence, cigarettes, uncomplicated; Z20.822 Contact with and (suspected) exposure to COVID-19; Z88.1 Allergy status to other antibiotic agents; Z91.09 Other allergy status, other than to drugs and biological substances; Z88.8 Allergy status to other drugs, medicaments and biological substances; Z91.013 Allergy to seafood; Z91.011 Allergy to milk products; Z73.6 Limitation of activities due to disability; Z82.49 Family history of ischemic heart disease and other diseases of the circulatory system
CPT/HCPCS: 36415; 74176; 80048; 80053; 82140; 83690; 85025; 87045; 87046; 87324; 96374; 99283; G0378; J1100; J1170; J1650; J2405; J3486; J7030; J7120; J7799; U0003

== ENCOUNTER 2022-03-25 20:15 | Emergency (ER) | payer OTHER ==
--- OUTSIDE RECORDS SUMMARY | 2022-03-25 20:29 | XMS REPORT | Continuity of Care Document ---
:1960 Author Organization [facility] t Address [address] [place] [address] [address]. [address] [place] [address] Care Team Providers Name Role Phone CALOS GARCIA Primary Care Physician Unavailable Fernando Man Attending Clinician Unavailable PIERCE MARSHALL Attending Clinician Unavailable MD AYDE WESTFALL Attending Clinician Unavailable SALLY AGUDELO Attending Clinician Unavailable Doctor Unassigned, [place] Attending Clinician Unavailable Victoriano Membreno Attending Clinician Unavailable Mercy Tamez MD Attending Clinician ACLOS GARCIA Attending Clinician Unavailable Luisana Thompson PA-C [...] Clinician Unavailable Wild Kovacs DO Attending Clinician [phone] Cliff Levy MD Attending Clinician MD CALOS GARCIA Attending Clinician Unavailable Freedom Gutierrez DO Attending Clinician Fabian Azevedo MD Attending Clinician Chris FRANKLIN, Robby Rios Attending Clinician [phone] MD HERIBERTO YORK Attending Clinician Unavailable [...] Attending Clinician YOVANY TAVERAS Attending Clinician Unavailable MATIT LOPEZ Admitting Clinician Unavailable MD AYDE WESTFALL Admitting Clinician Unavailable PIERCE MARSHALL Admitting Clinician Unavailable NIA LAWRENCE Admitting Clinician Unavailable BAYLEE GIRARD Admitting Clinician Unavailable MD BAYLEE GIRARD Admitting Clinician Unavail able MD MOISES BRO Admitting Clinician Unavail able DO ROMERO LIMON Admitting Clinician Unavailable JENNIFER GHOSH Admitting Clinician Unavailable MD JENNIFER GHOSH Admitting Clinician Unavailable HERIBERTO YORK Admitting Clinician Unavailable MD CALOS GARCIA Admitting Clinician Unavailable MD HERIBERTO YORK Admitting Clinician Unavailable ANGIE MAN Admitting Clinician Unavailable MD ANGIE MAN Admitting Clinician Unavailable HERMILO CHAMPION Admitting Clinician Unavailable MD HERMILO CHAMPION Admitting Clinician Unavailable MERCY RUEDA Admitting Clinician Unavailable DO MERCY RUEDA Admitting Clinician Unavailable YOVANY TAVERAS Admitting Clinician Unavailable Payers Payer Name Policy Type Policy Number Effective Date Expiration Date Faustino vasquez MEDICAID OF [place] [id number] 2018 00:00:00 MEDICARE A B [id number] 2015 00:00:00 GENERIC MEDICAID [id number] 2021 HMO 00:00:00 Problems Condition Condition Condition [...] Added automatic ally from request for surgery [id number] Chronic Chronic Disease Active 2020-08 [facility] kidney [...] Altered Disease Active [facility] mental mental 03-19 st status, status, 00:00: Hospita unspecifie unspecifie 00 l d d Obesity Obesity Disease Active 2018- Univers (BMI (BMI 7-26 ity of 30-39.9) 30-39.9) 00:00: [place] [address] Medical Branch Hematochez Hematochez Disease Active U nivers ia ia 7-26 ity of 00:00: [place] 00 Medical Branch Abdominal Abdominal Disease Active Met hodi pain pain 4 st 00:00: Hospita 00 l Weakness Weakness Disease Active Metho di 08-20 st 00:00: Hospita 00 l Chest pain Chest pain Disease Active 2019-0 M ethodi on on 08-20 st breathing breathing 00:00: Hosp page 00 l Non-intrac Non-intrac Disease Active 2018-0 M ethodi table table 08-20 vomiting vomiting 00:00: Hospit a with with 00 l nausea nausea Gastroesop Gastroesop Disease Active 2018-0 M ethodi hageal hageal 1 st reflux [...] Acute Acute Disease Active Methodi hepatic hepatic [address] st encephalop encephalop 00:00: Ho spita athy athy 00 l Hematochez Hematochez Disease Active M ethodi ia ia 12-11 st 00:00: Hospita 00 l Melena Melena Disease Active Overview: Method i 12-[address] 00:00: g of this Hospita 00 note l might be different from the original. Added automatic ally from request for surgery [id number] Bipolar Bipolar Disease Active Methodi disorder, disorder, 10-09 st unspecifie unspecifie 00:00: Ho yusufta d d 00 l Persistent Persistent Disease Active M ethodi depressive depressive 10-09 st disorder disorder 00:00: Hospit a 00 l Alcoholic Alcoholic Disease Active Met hodi cirrhosis cirrhosis 2 st of liver of liver 00:00: Hospit a 00 l 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 2 it y of athy athy 00:00: [place] [address] Medical Branch Hepatic Hepatic Disease Active 2015-08 Methodi encephalop encephalop [address] athy athy 00:00: Hospita 00 l [...] due to not due to 00:00: Gucci kelley alcohol alcohol 00 l Malnutriti Malnutriti Disease Active M ethodi on on 05-04 00:00: Hospita 00 l Right Right Disease Active Univers shoulder shoulder 4-25 ity of pain pain 00:00: [place] [address] Medical Branch 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 4-22 ity of 00:00: [place] 00 Medical Branch Anxiety Anxiety Disease Active Univers and and 12-01 ity of depression [place] [facility] [place] Rectal Rectal Disease Active 2014-08 Univers bleed bleed 09-14 ity of 00:00: [place] 00 Medical Branch Crohn Crohn Disease Active [facility] disease disease [facility] [place] Allergies, Adverse Reactions, Alerts Allergy Allergy Status Severity Reaction(s) Onset Inactive Treating Comm ents Source Name Type Date Date Clinician FISH Allergy Active [facility] CONTAINI 2 NG 00:00: PRODUCTS 00 SHELLFIS Allergy Active [facility] H 2 CONTAINI 00:00: NG 00 PRODUCTS EGGSHELL Allergy Active [facility] MEMBRANE 09-07 00:00: 00 Eggshell Drug Active [facility]07 [facility] [place] CEFTRIAX Allergy Active [facility] ONE 09[facility]02 [facility] [place] IODINE Allergy Active [facility] PROMETHA Allergy Active [facility] Center Ceftriax Propensi [...] drug Prometha Propensi Active Other - See Severe U nivers zine ty to comments 11-05 confusion ity o f adverse 00:00: [place] reaction 00 Medical s Branch PROMETHA DRUG Active Other-Cmnt 0 Univ ers ZINE INGREDI 3 ity of 00:00: [place] 00 Medical Branch Eggshell Propensi Active Diarrhea 2017-0 Egg yoke Un linda Membrane ty to 10-08 ity of adverse 00:00: [place] reaction 00 Medical s Branch EGGSHELL DRUG Active Diarrhea 0 Univer s MEMBRANE INGREDI 10-08 ity of 00:00: [place] 00 Medical Branch Eggshell Propensi Active Diarrhea 2016-0 Egg yoke Me thodi Membrane ty to 10-08 st adverse 00:00: Hospita reaction 00 l s to drug Prometha Propensi Active Other (See 201[address] Severe Me thodi zine ty to Comments) 09-[address] adverse 00:00: Hospita reaction 00 l s to drug Shellfis Propensi Active Anaphylaxis 2015-0 U nivers h ty to 05-05 ity of Derived adverse 00:00: [place] reaction 00 Medical s Branch SHELLFIS DRUG Active High Anaphylaxis 0 Uni vers H INGREDI 05-05 ity of DERIVED 00:00: [place] 00 Medical Branch Shellfis Propensi Active Anaphylaxis 2015-0 M ethodi h ty to 05-05 st Derived adverse 00:00: Hospita reaction 00 l s to drug Iodine Propensi Active Anaphylaxis 0 SOB, Met hodi ty to 05-01 wheezing, [...] Medical Branch Phenerga Adverse Active Info Not Commo n n Reaction Available [facility] Iodine Adverse Active Info Not Common Reaction Available [facility] NO KNOWN Allergy Active [facility] ALLERGIE S Family History Family Member Diagnosis Comments Start Date Stop Date Source Natural father No Known Problems Met [facility] Natural mother No Known Problems Met [facility] Social History Social Habit Start Date Stop Date Quantity Comments Source Exposure to Not sure University of SARS-CoV-2 (event) [facility] History SDOH [facility] Alcohol Frequency Hospita l History SDOH [facility] Alcohol Std Drinks Hospit al History SDOH [facility] Alcohol Binge Hospital Alcohol intake 2021-08-30 2021-08-30 Ex-drinker [facility] 00:00:00 00:00:00 (finding) Hospital Tobacco use and 2019-01-30 2019-01-30 Never used Universit y of exposure 00:00:00 00:00:00 [facility] History of tobacco 1979-01-30 2018-08-12 Cigarette Smoker University of use 00:00:00 00:00:00 [facility] Cigarettes smoked 2016-11-22 2016-11-[address] current (pack per 00:00:00 00:00:00 Hospita l day) - Reported Cigarette 2016-11-22 2016-11-22 [facility] pack-years 00:00:00 00:00:00 Hospital Tobacco Comment 2016-09-12 2016-09-12 smokes 5 [facility] 00:00:00 00:00:00 cigarettes per Hospital day Alcohol Comment 2016-05-02 2016-05-02 Former social Method ist 00:00:00 00:00:00 alcohol use, quit Hospita l several years ago; denies history of heavy alcohol use Sex Ass[birth year] At [birth year] [facility] 00:00:00 00:00:00 Hospital Smoking Status Start Date Stop Date Source Never smoker [facility] Ex-smoker 2016-11-22 00:00:00 2016-11-22 [facility]00[facility]ations Ordered Filled Start Stop Current Ordering Indication Dosage Frequency Signature Comments Components Source Medication Medication Date Date Medication? Clinician (SIG) Name Name estradioL Yes [id number] Apply 1g Univers (ESTRACE) 2- vaginally ity o f 0.01 % (0.1 00:00: at bedtime [place] mg/gram) 00 every Medical vaginal night for Branch cream 2 weeks and then apply 1g vaginally at bedtime 3 times per week (Saturday//) nystatin Yes [id number] Apply to Un linda (NYSTOP) 2- area(s) 3 ity of 100,000 00:00: (three) [place] unit/gram 00 times Medical powder daily. Branch estradioL 2021-0 Yes [id number] Apply 1g Univers (ESTRACE) 2-21 vaginally ity o f 0.01 % (0.1 00:00: at bedtime [place] mg/gram) 00 every Medical vaginal night for Branch cream 2 weeks and then apply 1g vaginally at bedtime 3 times per week (/ ida) nystatin 2021-0 Yes [id number] Apply to Un linda (NYSTOP) 2-21 area(s) 3 ity of 100,000 00:00: (three) [place] unit/gram 00 times Medical powder daily. Branch estradioL 2021-0 Yes [id number] Apply 1g Univers (ESTRACE) 2-21 vaginally ity o f 0.01 % (0.1 00:00: at bedtime [place] mg/gram) 00 every Medical vaginal night for Branch cream 2 weeks and then apply 1g vaginally at bedtime 3 times per week (/ ida) nystatin 2021-0 Yes [id number] Apply to Un linda (NYSTOP) 2-21 area(s) 3 ity of 100,000 00:00: (three) [place] unit/gram 00 times Medical powder daily. Branch methylnaltr 0 Yes Take by Uni vers exone 2-16 mouth. ity of bromide 14:28: [place] (RELISTOR 49 Medical ORAL) Branch potassium 0 Yes Take by Unive rs (POTASSIMIN 2-16 mouth once it y of ORAL) 14:28: now. [address] spironolact 2021-0 Yes 100mg Take 100 U nivers one 100 mg 2-16 mg by ity of tablet 14:28: mouth. [address] methylnaltr 0 Yes Take by Uni vers exone 2-16 mouth. ity of bromide 14:28: [place] (RELISTOR 49 Medical ORAL) Branch potassium 2021-0 Yes Take by Unive rs (POTASSIMIN 2-16 mouth once it y of ORAL) 14:28: now. [address] spironolact 0 Yes 100mg Take 100 U nivers one 100 mg 2-16 mg by ity of tablet 14:28: mouth. [address] methylnaltr Yes Take by Uni vers exone 2-16 mouth. ity of bromide 14:28: [place] (RELISTOR 49 Medical ORAL) [place] potassium Yes Take by Unive rs (POTASSIMIN 2-16 mouth once it y of ORAL) 14:28: now. [address] spironolact Yes 100mg Take 100 U nivers one 100 mg 2-16 mg by ity of tablet 14:28: mouth. [address] cyanocobala Yes 1000ug Inject CH I [...] (two) Center times daily. lactulose Yes 1{packe Q.[id number] Take [address] (Kristalose 1-24 t} [id number] packet by Gurpreet ) 20 gram 16:27: [...] daily as l needed for anxiety. [facility]: Last [...] tablet 18:28: nightly. Hosp page 48 Per [place] l Prescripti on Drug Monitoring Program records: Last filled: 08/09/21 Quantity: 30 Days Supply: 30 traMADoL Yes 50mg Q4H Take 50 mg Met hodi (ULTRAM) 50 -[address] mg tablet 18:28: every 4 Hospi ta 48 (four) l hours as needed for moderate pain. Per [facility] on Drug Monitoring Program records: Last filled: [...] tablet 47 :00 l SUMAtriptan 0 Yes [id number] 50mg Q24H Take 1 [facility]i (Imitrex) 1-10 [...] nightly for 30 days. pantoprazol 2021- No [id number] 40mg QD Take 1 Methodi e 08-21 [...] 2021- No 1000ug Take 1,000 Methodi min 08-1908 [...] day for 30 days. gabapentin No 300mg Q.[id number] Take 1 Methodi (NEURONTIN) 04-[id number] 300 mg 00:00: 00:00 3D (300 mg Hospita capsule 00 :00 total) by l mouth 3 (three) times a day for 30 days. pantoprazol No [id number] 40mg QD Take 1 Methodi e 01-24 tablet (40 st (PROTONIX) 00:00: 00:00 mg total) H ospita 40 MG EC 00 :00 by mouth l tablet every morning. SUMAtriptan No [id number] 50mg Q24H Take 1 Methodi (Imitrex) 01-24 [...] 03-09 by mouth ity of 16:42: at [place] [address] bedtime. Medical Branch GABAPENTIN Yes Take by [facility] ers ORAL 03-09 mouth. ity of 16:42: [place] [address] Medical Branch traMADOL 50 Yes 50mg Take 50 mg Univers mg tablet 03-09 by mouth ity of 16:42: as needed [place] [address] for Pain Medical (scale Branch 7-10). eszopiclone 2019-0 Yes 2mg Take 2 mg U nivers 2 mg tablet 7-29 by mouth ity of 16:42: at [place] [address] bedtime. Medical Branch GABAPENTIN 2019-0 Yes Take by [facility] ers ORAL 7-29 mouth. ity of 16:42: [place] 13 Medical Branch traMADOL 50 2019-0 Yes 50mg Take 50 mg Univers mg tablet 7-29 by mouth ity of 16:42: as needed [place] [address] for Pain Medical (scale Branch 7-10). eszopiclone 2019-0 Yes 2mg Take 2 mg U nivers 2 mg tablet 7-29 by mouth ity of 16:42: at [place] [address] bedtime. Medical Branch GABAPENTIN 2019-0 Yes Take by [facility] ers ORAL 7-29 mouth. ity of 16:42: [place] [address] Medical Branch traMADOL 50 2019-0 Yes 50mg Take 50 mg Univers mg tablet 7-29 by mouth ity of 16:42: as needed [place] [address] for Pain Medical (scale Branch 7-10). lactulose 2019-0 Yes [id number] 20g Take 1 Un linda (KRISTALOSE 7-29 Packet by ity of ) 20 gram 00:00: mouth 3 [place] packet 00 (three) Medical times Branch daily. lactulose 2019-0 Yes [id number] 20g Take 1 Un linda (KRISTALOSE 7-29 Packet by ity of ) 20 gram 00:00: mouth 3 [place] packet 00 (three) Medical times Branch daily. lactulose 2019-0 Yes [id number] 20g Take 1 Un linda (KRISTALOSE 7-29 Packet by ity of ) 20 gram 00:00: mouth 3 [place] packet 00 (three) Medical times Branch daily. ondansetron 2019-0 Yes [id number] 8mg Take 2 Univers 4 mg tablet 4-01 tablets by it y of 00:00: mouth [place] 00 every 8 Medical (eight) Branch hours as needed for Nausea and Vomiting (N/V). ondansetron 2019-0 Yes [id number] 8mg Take 2 Univers 4 mg tablet 4-01 tablets by it y of 00:00: mouth [place] 00 every 8 Medical (eight) Branch hours as needed for Nausea and Vomiting (N/V). ondansetron 2019-0 Yes [id number] 8mg Take 2 Univers 4 mg tablet 4-01 tablets by it y of 00:00: mouth [place] 00 every 8 Medical (eight) Branch hours as needed for Nausea and Vomiting (N/V). butalbital Yes [id number] 1{capsu Take 1 Univers aspirin-caf 3-25 le} capsule by it y of feine 00:00: mouth [place] 50-325-40 00 every 4 Medical mg per (four) Branch capsule hours as needed for Pain (headache unrelieved wtih other medication s). butalbital Yes [id number] 1{capsu Take 1 Univers aspirin-caf 3-25 le} capsule by it y of feine 00:00: mouth [place] 50-325-40 00 every 4 Medical mg per (four) Branch capsule hours as needed for Pain (headache unrelieved wtih other medication s). butalbital Yes [id number] 1{capsu Take 1 Univers aspirin-caf 3-25 le} capsule by it y of feine 00:00: mouth [place] 50-325-40 00 every 4 Medical mg per (four) Branch capsule hours as needed for Pain (headache unrelieved wtih other medication s). XIFAXAN 550 2016-08 Yes [id number] TAKE ONE Univers mg tablet 1-27 TABLET BY ity o f 00:00: MOUTH 2 TIMES A Medical DAY Branch PANTOPRAZOL 2016-08 Yes [id number] TAKE ONE Univers E 40 mg EC 1-27 TABLET BY ity of tablet 00:00: MOUTH 00 EVERY DAY Medical Branch XIFAXAN 550 2016-08 Yes [id number] TAKE ONE Univers mg tablet 1-27 TABLET BY ity o f 00:00: MOUTH 2 TIMES A Medical DAY Branch PANTOPRAZOL 2016-08 Yes [id number] TAKE ONE Univers E 40 mg EC 1-27 TABLET BY ity of tablet 00:00: MOUTH 00 EVERY DAY Medical Branch XIFAXAN 550 2016-08 Yes [id number] TAKE ONE Univers mg tablet 1-27 TABLET BY ity o f 00:00: MOUTH 2 TIMES A Medical DAY Branch PANTOPRAZOL 2016-08 Yes [id number] TAKE ONE Univers E 40 mg EC 1-27 TABLET BY ity of tablet 00:00: MOUTH 00 EVERY DAY Medical Branch acetaminoph Yes [...] Allopurinol Allopurinol Yes Fernando 2 tablets Common [facility] Immunizations Ordered Filled Immunization Date Status Comments [facility] e Immunization Name Name Influenza Virus 2021-04-12 Completed Universit y of Vaccine 00:00:00 [facility] Influenza Virus 2021-04-12 Completed Universit y of Vaccine 00:00:00 [facility] Influenza Virus 2021-04-12 Completed Universit y of Vaccine 00:00:00 [facility] SARS-COV-2 COVID-19 2020-12-14 Completed Unive rsity of YANIRA/J&J VACCINE 00:00:00 [facility] SARS-COV-2 COVID-19 2020-12-14 Completed Unive rsity of YANIRA/J&J VACCINE 00:00:00 [facility] SARS-COV-2 COVID-19 2020-12-14 Completed Unive rsity of YANIRA/J&J VACCINE 00:00:00 [facility] Influenza Virus 2018-04-21 Completed Universit y of Vaccine (3+ yrs) 00:00:[address] [facility] [place] Influenza Virus 2018-04-21 Completed Universit y of Vaccine (3+ yrs) 00:00:[address] [facility] [place] Influenza Virus 2018-04-21 Completed Universit y of Vaccine (3+ yrs) 00:00:[address] [facility] [place] Influenza (IM) 2018-04-21 Completed [facility] Preservative Free 00:00:00 Hospita l Pneumococcal 13 2016-05-08 Completed Universit y of Conjugate, PCV13 00:00:00 [facility] dical (Prevnar 13) Branch Pneumococcal 13 2016-05-08 Completed Universit y of Conjugate, PCV13 00:00:00 [facility] dical (Prevnar 13) Branch Pneumococcal 13 2016-05-08 Completed Universit y of Conjugate, PCV13 00:00:00 [facility] dical (Prevnar 13) Branch Pneumococcal 2016-05-08 Completed [facility] Conjugate 13-Valent 00:00:00 Hospi mateo FLUCELVAX QUAD PF 2016-05-[address] 00:00:00 Hospital Vital Signs Vital Name Observation Time Observation Value Comments Source Systolic blood 2021-11-16 18:59:00 111 mm[Hg] Univer sity of pressure [facility] Diastolic blood 2021-11-16 18:59:00 74 mm[Hg] Unive rsity of pressure [facility] Heart rate 2021-11-16 18:59:00 75 /min Universi ty [facility] Body temperature 2021-11-16 18:59:00 36.67 Georgette Univ ersity of [facility] Body height 2021-11-16 18:59:00 149.9 cm [facility] Body weight 2021-11-16 18:59:00 80.559 kg [facility] BMI 2021-11-16 18:59:00 35.87 kg/m2 [facility] HEIGHT 2021-09-02 15:44:00 149.9 cm WEIGHT 2021-09-02 15:44:00 87.091 kg HEIGHT 2021-09-02 15:44:00 149.9 cm WEIGHT 2021-09-02 15:44:00 87.091 kg Systolic blood 2021-09-11 19:42:00 125 mm[Hg] [facility] Diastolic blood 2021-09-11 19:42:00 60 mm[Hg] [facility] Heart rate 2021-09-11 19:42:00 98 /min [facility] Body temperature 2021-09-11 19:42:00 35.67 Georgette [facility] Respiratory rate 2021-09-11 19:42:00 18 /min [facility] Oxygen saturation in 2021-09-11 19:42:00 100 /min [facility] Arterial blood by Medical Ce nter Pulse oximetry Body height 2021-09-02 15:44:00 149.9 cm [facility] Body weight 2021-09-02 15:44:00 87.091 kg [facility] BMI 2021-09-02 15:44:00 38.78 kg/m2 [facility] Systolic blood 2021-08-31 06:30:00 119 mm[Hg] [facility] pressure Diastolic blood 2021-08-31 06:30:00 68 mm[Hg] [facility] pressure Heart rate 2021-08-31 06:30:00 70 /min [facility] Respiratory rate 2021-08-31 06:30:00 16 /min [facility] Oxygen saturation in 2021-08-31 06:30:00 97 /min [facility] Arterial blood by Pulse oximetry Body temperature 2021-08-31 04:04:09 36.83 Georgette [facility] Body height 2021-08-31 04:04:00 149.9 cm [facility] Body weight 2021-08-31 04:04:00 89.359 kg [facility] BMI 2021-08-31 04:04:00 39.79 kg/m2 [facility] Procedures Procedure Date / Time Performing Clinician Source Performed EXTERNAL PROVIDER RECORDS 2022-02-08 05:01:00 Doctor Unassigned, No [facility] HEPATIC FUNCTION PANEL 2021-09-11 05:33:00 KaNiya mr [facility] CBC W/PLT COUNT & AUTO 2021-09-11 05:33:00 KaNiya rm [facility] PROTHROMBIN TIME/INR 2021-09-11 05:33:00 Niya Cartagena [facility] BASIC METABOLIC PANEL (7) 2021-09-11 05:33:00 Niya Cartagena [facility] MAGNESIUM 2021-09-11 05:33:00 Selma Lu [facility] CBC W/PLT COUNT & AUTO 2021-09-11 05:33:00 Niya Cartagena [facility] HEPATIC FUNCTION PANEL 2021-09-10 06:52:00 Mitzi Niya [facility] CBC W/PLT COUNT & AUTO 2021-09-10 06:52:00 Niya Cartagena [facility] PROTHROMBIN TIME/INR 2021-09-10 06:52:00 Niya Cartagena Cindy [facility] BASIC METABOLIC PANEL (7) 2021-09-10 06:52:00 Niya Cartagena [facility] MAGNESIUM 2021-09-10 06:52:00 [facility] & AUTO 2021-09-10 06:52:00 Niya Cartagena [facility] HEPATIC FUNCTION PANEL 2021-09-09 05:51:00 Kajag Niya [facility] CBC W/PLT COUNT & AUTO 2021-09-09 05:51:00 KaNiya rm [facility] PROTHROMBIN TIME/INR 2021-09-09 05:51:00 KaNiya rm [facility] BASIC METABOLIC PANEL (7) 2021-09-09 05:51:00 KaNiya rm [facility] CBC W/PLT COUNT & AUTO 2021-09-09 05:51:[address] [facility] (CELLAVISION MANUAL DIFF) 2021-09-09 05:51:00 Niya Cartagena [facility] AMMONIA 2021-09-08 10:54:00 Selma Lu [facility] PHOSPHORUS 2021-09-08 05:14:00 Isabella [facility] HEPATIC FUNCTION PANEL 2021-09-08 05:14:00 KaNiya rm [facility] CBC W/PLT COUNT & AUTO 2021-09-08 05:14:00 Niya Cartagena [facility] PROTHROMBIN TIME/INR 2021-09-08 05:14:00 Niya Cartagena [facility] BASIC METABOLIC PANEL (7) 2021-09-08 05:14:00 Niya Cartagena [facility] CBC W/PLT COUNT & AUTO 2021-09-08 05:14:00 [facility] 2021-09-08 05:14:00 Niya Cartagena [facility] PHOSPHORUS 2021-09-07 05:37:00 Isabella, [facility] HEPATIC FUNCTION PANEL 2021-09-07 05:37:00 KaimNiya [facility] CBC W/PLT COUNT & AUTO 2021-09-07 05:37:00 Niya Cartagena [facility] PROTHROMBIN TIME/INR 2021-09-07 05:37:00 KaNiya rm [facility] BASIC METABOLIC PANEL (7) 2021-09-07 05:37:00 LizzjagHenryNiya Allalireza on [facility] CBC W/PLT COUNT & AUTO 2021-09-07 05:37:[address] [facility] (CELLAVISION MANUAL DIFF) 2021-09-07 05:37:00 Niya Cartagena on [facility] PROTHROMBIN TIME/INR 2021-09-06 06:37:00 Lizzjag Niyalilian White [facility] BASIC METABOLIC PANEL (7) 2021-09-06 06:37:00 Isabella, Mrinalin i [facility] PHOSPHORUS 2021-09-06 06:37:00 Isabella Mrinalini [facility] PROTHROMBIN TIME/INR 2021-09-05 14:31:00 Mitzi Niyalilian White [facility] BASIC METABOLIC PANEL (7) 2021-09-05 14:31:00 Isabella, Mrinalin i [facility] PHOSPHORUS 2021-09-05 14:31:00 Isabella, Mrinalini [facility] CBC W/PLT COUNT & AUTO 2021-09-05 14:31:00 Gianna Masonnalini C [facility] [place] [facility] HEPATIC FUNCTION PANEL 2021-09-05 14:31:00 Gianna Masonnalini C [facility] CBC W/PLT COUNT & AUTO 2021-09-05 14:31:00 Gianna Masonnalini C [facility] [place] [facility] [facility] (CELLAVISION MANUAL DIFF) 2021-09-05 14:31:00 Isabella, Mrinalin i [facility] C. DIFFICILE GDH TOXIN 2021-09-04 11:52:00 Jaqueline Vitale [facility] CT ABDOMEN/PELVIS WITH IV 2021-09-04 09:03:00 Mirian Goodman [facility] CT CHEST WITH IV CONTRAST 2021-09-04 09:03:00 Juve Masonin i [facility] CBC W/PLT COUNT & AUTO 2021-09-04 04:39:[address] [facility] COMPREHENSIVE METABOLIC 2021-09-04 04:39:00 Nia Lawrence [facility] MAGNESIUM 2021-09-04 04:39:00 Nia Lawrence [facility] PHOSPHORUS 2021-09-04 04:39:00 Nia Lawrence [facility] CBC W/PLT COUNT & AUTO 2021-09-04 04:39:[address] [facility] (CELLAVISION MANUAL DIFF) 2021-09-04 04:39:00 Nia Lawrence sa [facility] HEPATITIS A ANTIBODY, IGG 2021-09-03 12:02:00 Gianna Masonnalin i [facility] HEPATITIS B CORE ANTIBODY, 2021-09-03 12:02:00 Laura Mason ni [facility] TOTAL [facility] HEPATITIS B SURFACE 2021-09-03 12:02:00 Gianna Masonnalini [facility] ANTIBODY [facility] HEPATITIS B SURFACE 2021-09-03 12:02:00 Juve Masonini [facility] ANTIGEN [facility] HEPATITIS C ANTIBODY 2021-09-03 12:02:00 Gianna Masonnalnatan [facility] CBC W/PLT COUNT & AUTO 2021-09-03 12:01:[address] [facility] COMPREHENSIVE METABOLIC 2021-09-03 12:01:00 Nia Lawrence [facility] MAGNESIUM 2021-09-03 12:01:00 Nia Lawrence [facility] PHOSPHORUS 2021-09-03 12:01:00 Nia Lawrence [facility] PROTHROMBIN TIME/INR 2021-09-03 12:01:00 Jr White [facility] CBC W/PLT COUNT & AUTO 2021-09-03 12:01:[address] [facility] (CELLAVISION MANUAL DIFF) 2021-09-03 12:01:00 Nia Lawrence sa [facility] BLOOD CULTURE 2021-09-03 11:59:00 Nia Lawrence [facility] OVA AND PARASITE 2021-09-02 09:44:00 Troy Awad rikail [facility] GI PATHOGEN PROFILE BY PCR 2021-09-02 09:44:00 Troy Awad il [facility] BLOOD CULTURE 2021-09-02 06:03:00 Nia Lawrence [facility] CBC W/PLT COUNT & AUTO 2021-09-02 06:03:[address] [facility] COMPREHENSIVE METABOLIC 2021-09-02 06:03:00 Nia Lawrence [facility] MAGNESIUM 2021-09-02 06:03:00 Nia Lawrence [facility] PHOSPHORUS 2021-09-02 06:03:00 [facility]ACT[facility] PROTEIN 2021-09-02 06:03:00 Nia Lawrencessa [facility] CBC W/PLT COUNT & AUTO 2021-09-02 06:03:[address] [facility] (CELLAVISION MANUAL DIFF) 2021-09-02 06:03:00 Nia Lawrence sa [facility] IRON, TIBC, % SAT. 2021-09-02 06:01:00 Nia Lawrence [facility] (WITHOUT FERRITIN) [facility] B12 AND FOLATE 2021-09-02 06:01:00 Nia Lawrencessa [facility] CT BRAIN WITHOUT IV 2021-09-02 02:39:00 Nia Lawrence [facility] US ABDOMEN LIMITED 2021-09-02 02:09:00 Nia Lawrence [facility] URINE CULTURE 2021-09-02 01:29:00 Nia Lawrence [facility] URINALYSIS W/ REFLEX URINE 2021-09-02 01:29:00 Nia Lawrence [facility] CULTURE [facility] XR CHEST 1 VIEW PORTABLE / 2021-09-02 01:02:00 Nia Lawrence [facility] BEDSIDE [facility] CBC W/PLT COUNT & AUTO 2021-09-01 22:55:00 Nia Lawrence [facility] LACTIC ACID, VENOUS 2021-09-01 22:55:00 Nia Lawrence [facility] PT/APTT 2021-09-01 22:55:00 Nia Lawrence [facility] HEPATIC FUNCTION PANEL 2021-09-01 22:55:00 Kyle Nia [facility] BASIC METABOLIC PANEL (7) 2021-09-01 22:55:00 Nia Lawrence [facility] MAGNESIUM 2021-09-01 22:55:00 [facility] 2021-09-01 22:55:00 [facility] W/PLT COUNT & AUTO 2021-09-01 22:55:00 [facility] 2021-09-01 22:55:00 Nia Lawrence [facility] POCT-GLUCOSE METER 2021-09-01 22:36:00 Lacey Pan [facility] CT ABDOMEN PELVIS WO 2021-08-31 05:50:00 [facility] HC COMPLETE BLD COUNT 2021-08-31 04:21:00 Moises Bro [facility] W/AUTO DIFF [facility] COMPREHENSIVE METABOLIC 2021-08-31 04:21:00 Moises Bro [facility] PANEL [facility] LACTIC ACID, I-STAT 2021-08-31 04:21:00 Moises Bro [facility] ESTIMATED GFR 2021-08-31 04:21:00 Moises Bro [facility] SPIROMETRY, DIFFUSION, 2021-08-25 19:27:26 [facility] LUNG VOLUMES, MIPS/MEPS XR CHEST 2 VW 2021-08-25 18:00:20 [facility] XR PANOREX 2021-08-25 17:59:56 [facility] POC GLUCOSE 2021-08-25 13:51:00 Davina Jennifer [facility] SALEEM-POSEY VIRUS 2021-08-25 11:08:00 [facility] ANTIBODY TEST HC COMPLETE BLD COUNT 2021-08-25 11:08:00 Davina [facility] W/AUTO DIFF COMPREHENSIVE METABOLIC 2021-08-25 11:08:00 [facility] PANEL PROTHROMBIN TIME WITH INR 2021-08-25 11:08:00 Jennifer Ghosh [facility] ESTIMATED GFR 2021-08-25 11:08:00 Davina [facility]george [facility] POC GLUCOSE 2021-08-25 03:18:00 Davina [facility] POC GLUCOSE 2021-08-25 00:22:00 Davina [facility] POC GLUCOSE 2021-08-24 19:43:00 Davina [facility] CREATININE LEVEL, URINE, 2021-08-24 18:13:00 [facility] TIMED PROTEIN, URINE, TIMED 2021-08-24 18:13:00 [facility] CV SELECTIVE CORONARY 2021-08-24 16:44:00 Cabrera Fierro [facility] ANGIOGRAPHY [place] HC COMPLETE BLD COUNT 2021-08-24 11:01:00 [facility] W/AUTO DIFF [facility] BASIC METABOLIC PANEL 2021-08-24 11:01:00 [facility] HEPATIC FUNCTION PANEL 2021-08-24 11:01:00 [facility] [place] MAGNESIUM LEVEL 2021-08-24 11:01:00 Alma Girard [facility] PROTHROMBIN TIME WITH INR 2021-08-24 11:01:00 [facility] [place] ESTIMATED GFR 2021-08-24 11:01:00 Alma Girard [place] POC GLUCOSE 2021-08-24 03:07:00 Jennifer Ghoshtal POC GLUCOSE 2021-08-24 00:11:00 Jennifer Ghosh COVID-19 QUALITATIVE 2021-08-23 22:15:00 Dayo Moeller [facility] RT-PCR POC GLUCOSE 2021-08-23 19:17:00 Jennifer Ghoshtal POC GLUCOSE 2021-08-23 14:05:00 Jennifer Ghosh HC COMPLETE BLD COUNT 2021-08-23 11:49:00 [facility] W/AUTO DIFF [facility] BASIC METABOLIC PANEL 2021-08-23 11:49:00 [facility] HEPATIC FUNCTION PANEL 2021-08-23 11:49:00 [facility] MAGNESIUM LEVEL 2021-08-23 11:49:00 Alma Girard [place] PROTHROMBIN TIME WITH INR 2021-08-23 11:49:00 [facility] ALPHA FETOPROTEIN 2021-08-23 11:49:00 [facility] ALPHA-1 ANTITRYPSIN LEVEL 2021-08-23 11:49:00 [facility] ANTI SMOOTH MUSCLE AB 2021-08-23 11:49:00 Emma [facility] SCREEN C-REACTIVE PROTEIN 2021-08-23 11:49:00 [facility] CANCER ANTIGEN 125 2021-08-23 11:49:00 [facility] CANCER ANTIGEN 19-9 2021-08-23 11:49:00 [facility] CARCINOEMBRYONIC ANTIGEN 2021-08-23 11:49:00 [facility] (CEA) CERULOPLASMIN LEVEL 2021-08-23 11:49:00 [facility] CORTISOL LEVEL, RANDOM 2021-08-23 11:49:00 [facility] CORTISOL, FREE BY 2021-08-23 11:49:00 [facility] ED/LC-MS/MS CYTOMEGALOVIRUS AB, IGG 2021-08-23 11:49:00 [facility] CYTOMEGALOVIRUS AB, IGM 2021-08-23 11:49:00 [facility] DRUG KIM 9, SER/THAIS, SCRN 2021-08-23 11:49:00 [facility] W/RFLX TO CONF FERRITIN LEVEL 2021-08-23 11:49:00 [facility] FIBRINOGEN 2021-08-23 11:49:00 [facility] HEPATITIS A ANTIBODY IGM 2021-08-23 11:49:00 [facility] HEPATITIS A ANTIBODY TOTAL 2021-08-23 11:49:00 [facility] HEPATITIS B CORE ANTIBODY 2021-08-23 11:49:00 [facility] TOTAL HEPATITIS B SURFACE 2021-08-23 11:49:00 [facility] ANTIBODY HEPATITIS B SURFACE 2021-08-23 11:49:00 [facility] ANTIGEN HEPATITIS C ANTIBODY 2021-08-23 11:49:00 [facility] HIV AG/AB COMBINATION 2021-08-23 11:49:[address] [facility] HIV-1 RNA, QUALITATIVE TMA 2021-08-23 11:49:00 [facility] HLA TRANSPLANT EVALUATION 2021-08-23 11:49:00 [facility] LIPID PANEL 2021-08-23 11:49:00 [facility] BARBITURATES, S/P, QUANT 2021-08-23 11:49:00 [facility] PARTIAL THROMBOPLASTIN 2021-08-23 11:49:00 [facility] TIME (PTT) PHOSPHATIDYLETHANOL, BLOOD 2021-08-23 11:49:00 [facility] PHOSPHORUS LEVEL 2021-08-23 11:49:00 [facility] PREALBUMIN LEVEL 2021-08-23 11:49:00 [facility] SERUM ELECTROPHORESIS 2021-08-23 11:49:[address] [facility] SYPHILIS TREPONEMA SCREEN 2021-08-23 11:49:00 [facility] WITH RPR CONFIRMATION (REVERSE ALGORITHM) T3, FREE 2021-08-23 11:49:00 [facility] TB T-SPOT 2021-08-23 11:49:00 [facility] TOTAL IRON BINDING 2021-08-23 11:49:00 [facility] CAPACITY ZINC LEVEL, SERUM 2021-08-23 11:49:00 [facility] ESTIMATED GFR 2021-08-23 11:49:00 Alma Girard shane [place] SINGLE ANTIGEN BEADS 2021-08-23 11:49:00 [facility] C1Q CLASS 1 & 2 ANTIBODY 2021-08-23 11:49:00 [facility] CT CHEST WO CONTRAST 2021-08-23 04:25:00 [facility] GLU[facility]SE 2021-08-23 02:55:00 Jennifer Ghosh US CAROTID DUPLEX 2021-08-23 02:40:00 [facility] BILATERAL TTE COMPLETE, WO CONTRAST, 2021-08-22 23:47:00 [facility] W AGITATED SALINE ([id number]) US ABDOMEN COMPLETE 2021-08-22 22:30:00 [facility] ECG 12-LEAD 2021-08-22 21:31:09 [facility] POC GLUCOSE 2021-08-22 13:43:00 Jennifer Ghosh spital HC COMPLETE BLD COUNT 2021-08-22 10:59:00 Ting Pierson [facility]/AUTO DIFF [facility] BASIC METABOLIC PANEL 2021-08-22 10:59:00 Ting Pierson [facility] HEPATIC FUNCTION PANEL 2021-08-22 10:59:00 [facility] MAGNESIUM LEVEL 2021-08-22 10:59:00 Alma Girard spital [place] PHOSPHORUS LEVEL 2021-08-22 10:59:00 Alma Girard ospital [place] PROTHROMBIN TIME WITH INR 2021-08-22 10:59:00 [facility] 2021-08-22 10:59:00 Alma Girard spital [place] POC GLUCOSE 2021-08-22 03:06:00 Jennifer Ghosh spital POC GLUCOSE 2021-08-22 00:27:00 Jennifer Ghosh Ho spital POC GLUCOSE 2021-08-21 19:09:00 Jennifer Ghosh Ho spital POC GLUCOSE 2021-08-21 13:46:00 Alma Girard spital [place] HC COMPLETE BLD COUNT 2021-08-21 10:56:00 Ting Pierson [facility] DIFF [facility] BASIC METABOLIC PANEL 2021-08-21 10:56:00 Ting Pierson [facility] HEPATIC FUNCTION PANEL 2021-08-21 10:56:00 [facility] MAGNESIUM LEVEL 2021-08-21 10:56:00 Alma Girard spital [place] PHOSPHORUS LEVEL 2021-08-21 10:56:00 Alma Girard ospital [place] PROTHROMBIN TIME WITH INR 2021-08-21 10:56:00 [facility] EST[facility] 2021-08-21 10:56:00 Alma Girard spital [place] POC GLUCOSE 2021-08-21 03:20:00 Alma Girard Ho spital [place] POC GLUCOSE 2021-08-20 14:56:00 Jennifer Ghosh Ho spital HC COMPLETE BLD COUNT 2021-08-20 10:57:00 Ting Dangelo [facility] W/AUTO DIFF [facility] BASIC METABOLIC PANEL 2021-08-20 10:57:00 [facility]EL 2021-08-20 10:57:00 [facility] [place] MAGNESIUM LEVEL 2021-08-20 10:57:00 Alma Girard spital [place] PHOSPHORUS LEVEL 2021-08-20 10:57:00 Alma Girard ospital [place] PROTHROMBIN TIME WITH INR 2021-08-20 10:57:00 [facility] ESTIM[facility] 2021-08-20 10:57:00 Alma Girard spital [place] POC GLUCOSE 2021-08-20 02:42:00 Ting Alma Pierson spital [place] POC GLUCOSE 2021-08-19 20:04:00 Alma Girard spital [place] HC COMPLETE BLD COUNT 2021-08-19 11:38:00 Ting Pierson [facility] W/AUTO DIFF [facility] BASIC METABOLIC PANEL 2021-08-19 11:38:00 [facility]EL 2021-08-19 11:38:00 [facility] [place] MAGNESIUM LEVEL 2021-08-19 11:38:00 Alma Girard spital [place] PHOSPHORUS LEVEL 2021-08-19 11:38:00 Alma Girard ospital [place] PROTHROMBIN TIME WITH INR 2021-08-19 11:38:00 [facility] ESTIMATED [facility] 2021-08-19 11:38:00 Alma Girard spital [place] POC GLUCOSE 2021-08-19 03:14:00 Alma Girard spital [place] POC GLUCOSE 2021-08-18 23:30:00 Alma Girard spimateo Self POC GLUCOSE 2021-08-18 15:37:00 Alma Girard URINE CULTURE 2021-08-18 12:53:00 Alma Girard URINALYSIS SCREEN AND 2021-08-18 11:31:00 [facility] MICROSCOPY, WITH REFLEX TO [facility] CULTURE LACTIC ACID LEVEL, SEPSIS 2021-08-18 10:21:00 Orlando Balderrama [facility] - NOW AND REPEAT 2X EVERY 3 HOURS HC COMPLETE BLD COUNT 2021-08-18 10:21:00 [facility] W/AUTO DIFF [facility] BASIC METABOLIC PANEL 2021-08-18 10:21:00 [facility] HEPATIC FUNCTION PANEL 2021-08-18 10:21:00 [facility] MAGNESIUM LEVEL 2021-08-18 10:21:00 [facility] Alma Pierson [place] PHOSPHORUS LEVEL 2021-08-18 10:21:00 Alma Girard ospimateo Self PROTHROMBIN TIME WITH INR 2021-08-18 10:21:00 [facility] ESTIMATED GFR 2021-08-18 10:21:00 Alma Girard shane [place] LACTIC ACID LEVEL, SEPSIS 2021-08-18 07:56:00 Orlando Balderrama [facility] - NOW AND REPEAT 2X EVERY 3 HOURS BLOOD CULTURE, AEROBIC & 2021-08-18 05:00:00 [facility] ANAEROBIC [facility] ECG 12-LEAD 2021-08-18 04:24:58 Conchis [facility] CT ABDOMEN PELVIS WO 2021-08-18 04:19:03 Orlando Balderrama [facility] CONTRAST CT HEAD WO CONTRAST 2021-08-18 04:18:21 [facility] LACTIC ACID LEVEL, SEPSIS 2021-08-18 03:37:00 [facility] - NOW AND REPEAT 2X EVERY 3 HOURS B NATRIURETIC PEPTIDE 2021-08-18 03:37:[address] [facility] PROTHROMBIN TIME WITH INR 2021-08-18 03:20:00 [facility] AMMONIA LEVEL 2021-08-18 03:20:00 [facility] TROPONIN T 2021-08-18 03:20:00 [facility] XR CHEST 1 VW PORTABLE 2021-08-18 03:14:19 [facility] HC COMPLETE BLD COUNT 2021-08-18 03:03:[address] [facility] W/AUTO DIFF COMPREHENSIVE METABOLIC 2021-08-18 03:03:00 [facility] PANEL ESTIMATED GFR 2021-08-18 03:03:00 [facility] RESPIRATORY PATHOGEN PANEL 2021-08-18 03:03:00 [facility] WITH COVID-19 RT-PCR ECG ED PRELIMINARY 2021-08-18 02:54:33 [facility] INTERPRETATION COVID-19 QUALITATIVE 2021-08-11 05:31:00 [facility] RT-PCR [facility] COMPREHENSIVE METABOLIC 2021-08-11 05:30:00 [facility] PANEL [facility] HC COMPLETE BLD COUNT 2021-08-11 05:30:00 [facility] W/AUTO DIFF [facility] LACTIC ACID, I-STAT 2021-08-11 05:30:00 [facility] ESTIMATED GFR 2021-08-11 05:30:00 [facility] ECG 12-LEAD 2021-08-11 05:15:35 [facility] URINALYSIS 2021-08-11 05:00:00 Adali [facility] XR CHEST 1 VW PORTABLE 2021-08-11 04:27:00 [facility] LACTIC ACID, I-STAT 2021-06-28 22:37:00 [facility] 2021-06-28 21:45:00 [facility] COMPLETE BLD COUNT 2021-06-28 20:01:00 [facility]O DIFF PROTHROMBIN TIME WITH INR, 2021-06-28 20:01:00 Romero Limon [facility] I-STAT COMPREHENSIVE METABOLIC 2021-06-28 20:01:00 Romero Limon [facility] PANEL LACTIC ACID, I-STAT 2021-06-28 20:01:00 Romero Limon [facility] SEDIMENTATION RATE 2021-06-28 20:01:00 [facility] ESTIMATED GFR 2021-06-28 20:01:00 [facility]-19 QUALITATIVE 2021-06-28 20:01:00 Romero Limon [facility] RT-PCR BLOOD CULTURE, AEROBIC & 2021-06-28 20:01:00 Romero Limon Laurel [facility] ANAEROBIC HC COMPLETE BLD COUNT 2021-06-21 11:20:00 [facility] [place] BASIC METABOLIC PANEL 2021-06-21 11:20:00 Dinakar [facility] [place] HEPATIC FUNCTION PANEL 2021-06-21 11:20:00 [facility] MAGNESIUM LEVEL 2021-06-21 11:20:00 Pierce [facility] PROTHR[facility] TIME WITH INR 2021-06-21 11:20:00 Pierce Marshall [facility] PHOSPHORUS LEVEL 2021-06-21 11:20:00 Pierce Marshall ospital [place] ESTIMATED GFR 2021-06-21 11:20:00 Dinakar, Pierce lynn [place] PHOSPHATIDYLETHANOL, BLOOD 2021-06-21 11:20:00 [facility] URINE DRUGS OF ABUSE 2021-06-21 10:11:00 [facility] SCREEN URINALYSIS SCREEN AND 2021-06-21 10:10:[address] [facility] MICROSCOPY, WITH REFLEX TO CULTURE URINE CULTURE 2021-06-21 10:10:00 [facility] COVID-19 SEROLOGY PATIENT 2021-06-20 17:52:00 Dinakar, [facility] SURVEILLANCE [facility] COVID-19 ANTI-SPIKE IGG 2021-06-20 17:52:00 Dinakar, [facility] ANTIBODY TITER [facility] HC COMPLETE BLD COUNT 2021-06-20 11:03:00 Dinakar, [facility] W/AUTO DIFF [facility] BASIC METABOLIC PANEL 2021-06-20 11:03:00 Dinakar, [facility] HEPATIC FUNCTION PANEL 2021-06-20 11:03:00 Dinakar, [facility] MAGNESIUM LEVEL 2021-06-20 11:03:00 Dinakar, Pierce Duckworth spimateo [place] PROTHROMBIN TIME WITH INR 2021-06-20 11:03:00 Dinakar, [facility] PHOSPHORUS LEVEL 2021-06-20 11:03:00 DinholleyrPierce ospital [place] ESTIMATED GFR 2021-06-20 11:03:00 DinakarPierce XR ABDOMEN 1 VW PORTABLE 2021-06-20 00:11:00 [facility] AMMONIA LEVEL 2021 11:27:00 Jennifer Ghoshtal HC COMPLETE BLD COUNT 2021 11:24:00 Jennifer Ghosh [facility] W/AUTO DIFF PROTHROMBIN TIME WITH INR 2021 11:24:00 Jennifer Ghosh [facility] COMPREHENSIVE METABOLIC 2021 11:24:00 Jennifer Ghosh [facility] PANEL PHOSPHORUS LEVEL 2021 11:24:00 DavinaStanislawJennifer [facility] MAGNESIUM LEVEL 2021 11:24:00 Stanislaw Ghoshuang [facility] HEMOGLOBIN A1C 2021 11:24:00 Jennifer Ghosh [facility] THYROID STIMULATING 2021 11:24:00 [facility] HORMONE T4 2021 11:24:00 Stanislaw Ghoshuang [facility] VITAMIN D 25 HYDROXY LEVEL 2021 11:24:00 [facility] ESTIMATED GFR 2021 11:24:00 Stanislaw Ghoshuang [facility] LACTIC ACID, I-STAT 2021 01:31:00 [facility] COVID-19 QUALITATIVE 2021 01:21:00 Diana Bangura [facility] RT-PCR CLOSTRIDIUM DIFFICILE 2021 00:30:00 Diana Bangura [facility] TOXIN ENTERIC BACTERIAL PANEL 2021 00:30:00 [facility] 2021 00:09:00 Diana Bangura [facility] METABOLIC 2021-06-18 22:51:00 [facility] PANEL AMYLASE LEVEL 2021-06-18 22:51:00 Diana Bangura Bin [facility] ESTIMATED GFR 2021-06-18 22:51:00 Diana Bangura [facility] HC COMPLETE BLD COUNT 2021-06-18 21:51:00 WillemDiana [facility] W/AUTO DIFF [facility] METABOLIC 2021-06-18 21:51:00 [facility] PANEL LACTIC ACID, I-STAT 2021-06-18 21:51:00 [facility] AMYLASE LEVEL 2021-06-18 21:51:00 Willem Diana [facility] ESTIMATED GFR 2021-06-18 21:51:00 [facility] AMMONIA LEVEL 2021-06-18 21:47:00 Diana Bangura [facility] HC COMPLETE BLD COUNT 2021-06-02 09:45:00 [facility] W/AUTO DIFF PROTHROMBIN TIME WITH INR 2021-06-02 09:45:00 [facility] BASIC METABOLIC PANEL 2021-06-02 09:45:00 [facility] HEPATIC FUNCTION PANEL 2021-06-02 09:45:00 [facility] PHOSPHORUS LEVEL 2021-06-02 09:45:00 [facility] MAGNESIUM LEVEL 2021-06-02 09:45:00 [facility] ospital ESTIMATED GFR 2021-06-02 09:45:00 [facility] ospital US ABDOMINAL LIMITED 2021-06-01 21:06:20 Joana Ling [facility] VENIPUNC NEED PHYS 2021-06-01 14:32:45 Linda Torres [facility] SKILL,DX OR RX HC COMPLETE BLD COUNT 2021-06-01 10:30:00 [facility] W/AUTO DIFF PROTHROMBIN TIME WITH INR 2021-06-01 10:30:00 [facility] BASIC METABOLIC PANEL 2021-06-01 10:30:00 [facility] HEPATIC FUNCTION PANEL 2021-06-01 10:30:00 [facility] PHOSPHORUS LEVEL 2021-06-01 10:30:00 [facility] MAGNESIUM LEVEL 2021-06-01 10:30:00 [facility] HEMOGLOBIN A1C 2021-06-01 10:30:00 [facility] ospital THYROID STIMULATING 2021-06-01 10:30:00 [facility] HORMONE T4 2021-06-01 10:30:00 [facility] VITAMIN D 25 HYDROXY LEVEL 2021-06-01 10:30:00 [facility] ZINC LEVEL, SERUM 2021-06-01 10:30:00 [facility] ALPHA FETOPROTEIN 2021-06-01 10:30:00 [facility] AMMONIA LEVEL 2021-06-01 10:30:00 [facility] ospital ESTIMATED GFR 2021-06-01 10:30:00 [facility] PHOSPHATIDYLETHANOL, BLOOD 2021-06-01 10:30:00 [facility] URINE CULTURE 2021-06-01 02:48:00 [facility] osthe orthopedic specialty hospital BLOOD CULTURE, AEROBIC & 2021-06-01 02:43:00 [facility] ANAEROBIC BLOOD CULTURE, AEROBIC & 2021-06-01 02:42:00 [facility] ANAEROBIC URINALYSIS SCREEN AND 2021-06-01 02:40:00 [facility] MICROSCOPY, WITH REFLEX TO CULTURE URINE DRUGS OF ABUSE 2021-06-01 02:40:00 [facility] SCREEN URIC ACID LEVEL 2021-06-01 02:38:00 [facility] ospital PROTHROMBIN TIME WITH INR 2021-06-01 02:38:00 [facility] PHOSPHORUS LEVEL 2021-06-01 02:38:00 [facility] PARTIAL THROMBOPLASTIN 2021-06-01 02:38:00 [facility] TIME (PTT) MAGNESIUM LEVEL 2021-06-01 02:38:00 [facility] HEPATIC FUNCTION PANEL 2021-06-01 02:38:00 [facility] LDH 2021-06-01 02:38:00 [facility] LACTIC ACID LEVEL 2021-06-01 02:38:00 [facility] FIBRINOGEN 2021-06-01 02:38:00 Chela [facility] HC COMPLETE BLD COUNT 2021-06-01 02:38:00 Chela [facility] W/AUTO DIFF BASIC METABOLIC PANEL 2021-06-01 02:38:00 Chela [facility] AMMONIA LEVEL 2021-06-01 02:38:00 Chela [facility] ESTIMATED GFR 2021-06-01 02:38:00 Chela [facility] ospital COVID-19 SEROLOGY PATIENT 2021-06-01 02:38:00 Chela [facility] SURVEILLANCE COVID-19 ANTI-SPIKE IGG 2021-06-01 02:38:00 [facility] ANTIBODY TITER ECG 12-LEAD 2021-06-01 01:06:10 [facility]R ABDOMEN 1 VW PORTABLE 2021-06-01 01:06:00 Chela [facility] XR CHEST 1 VW PORTABLE 2021-06-01 01:02:00 Chela [facility] COVID-19 QUALITATIVE 2021-06-01 00:37:00 [facility] HC COMPLETE BLD COUNT 2021-05-27 10:09:00 Ting Pierson [facility] W/AUTO DIFF [facility] BASIC METABOLIC PANEL 2021-05-27 10:09:[address] HE[facility] FUNCTION PANEL 2021-05-27 10:09:00 [facility] MAGNESIUM LEVEL 2021-05-27 10:09:00 Alma Girard PHOSPHORUS LEVEL 2021-05-27 10:09:00 Alma Girard ossheldon Self PROTHROMBIN TIME WITH INR 2021-05-27 10:09:00 [facility] Baylee ESTIMATED GFR 2021-05-27 10:09:00 Alma Girard VENOUS BLOOD GAS 2021-05-26 23:37:00 Nia Faustin Nellie COMPLETE BLD COUNT 2021-05-26 09:02:00 [facility] W/AUTO DIFF Baylee PROTHROMBIN TIME WITH INR 2021-05-26 09:02:00 [facility] SER[facility]Y PATIENT 2021-05-26 09:02:00 Abe Partida [facility] SURVEILLANCE Tom SMEAR REVIEW 2021-05-26 09:02:00 Alma Girard PHOSPHATIDYLETHANOL, BLOOD 2021-05-26 09:02:00 Palak Mayorga [facility]-19 ANTI-SPIKE IGG 2021-05-26 09:02:00 Abe Partida [facility] ANTIBODY TITER Tom BASIC METABOLIC PANEL 2021-05-26 09:00:00 [facility] 2021-05-26 09:00:00 [facility] MAGNESIUM LEVEL 2021-05-26 09:00:00 Alma Girard PHOSPHORUS LEVEL 2021-05-26 09:00:00 Alma Girard ossheldon Self ALPHA FETOPROTEIN 2021-05-26 09:00:00 [facility] ZINC LEVEL, SERUM 2021-05-26 09:00:00 cam [facility] ESTIMATED GFR 2021-05-26 09:00:00 Alma Girard URINALYSIS SCREEN AND 2021-05-25 23:41:00 [facility] MICROSCOPY, WITH REFLEX TO Baylee CULTURE URINE DRUGS OF ABUSE 2021-05-25 23:41:00 [facility] S[facility]EN [place]lee URINE CULTURE 2021-05-25 23:41:00 Alma Girard US HEPATIC 2021-05-25 20:43:26 Alma Girard US ABDOMINAL DOPPLER 2021-05-25 20:40:00 Tingolaf Rizvis, [facility] HC COMPLETE BLD COUNT 2021-05-25 18:10:00 [facility] Pierson [facility] W/AUTO DIFF Baylee SMEAR REVIEW 2021-05-25 18:10:00 Alma Girard Baylee VENIPUNC NEED PHYS 2021-05-25 15:59:39 Tristin Hunt [facility] SKILL,DX OR RX CBC WITH PLATELET AND 2021-05-25 13:57:00 [facility] DIFFERENTIAL Baylee COMPREHENSIVE METABOLIC 2021-05-25 13:57:00 [facility] PANEL Baylee ESTIMATED GFR 2021-05-25 13:57:00 Alma Girard [facility] LACTIC ACID, I-STAT 2021-05-25 00:58:00 Romero Limon [facility] COVID-19 QUALITATIVE 2021-05-25 00:00:00 Romero Limon [facility] RT-PCR CT ABDOMEN PELVIS WO 2021-05-24 23:16:57 Romero Limon [facility] CONTRAST URINALYSIS 2021-05-24 22:19:00 Romero Limon HC COMPLETE BLD COUNT 2021-05-24 22:13:00 Romero Limon [facility] W/AUTO DIFF COMPREHENSIVE METABOLIC 2021-05-24 22:13:00 Romero Limon [facility] PANEL AMYLASE LEVEL 2021-05-24 22:13:00 Romero Limon LACTIC ACID, I-STAT 2021-05-24 22:13:00 Romero Limon [facility] ESTIMATED GFR 2021-05-24 22:13:00 Romero Limon BLOOD CULTURE, AEROBIC & 2021-05-24 22:00:[address] [facility] ANAEROBIC CBC HEMOGRAM 2020-11-23 05:55:00 Alma Girard PROTHROMBIN TIME WITH INR 2020-11-23 05:55:00 Ting Pierson, [facility] COMPREHENSIVE METABOLIC 2020-11-23 05:55:00 Ting Dangelo [facility] PANEL [facility] ESTIMATED GFR 2020-11-23 05:55:00 Alma Girard spital [facility] COVID-19 QUALITATIVE 2020-11-23 01:57:00 Wild Kovacs [facility] RT-PCR Tomiwa LACTIC ACID, I-STAT 2020-11-23 01:40:00 Romero Limon [facility] CT HEAD WO CONTRAST 2020-11-22 23:20:00 Romero Limon [facility] HC COMPLETE BLD COUNT 2020-11-22 22:53:00 Romero Limon [facility] W/AUTO DIFF COMPREHENSIVE METABOLIC 2020-11-22 22:53:00 Romero Limon [facility] PANEL LACTIC ACID, I-STAT 2020-11-22 22:53:00 Romero Limon [facility] AMMONIA LEVEL 2020-11-22 22:53:00 Romero Limon spital VENOUS BLOOD GAS 2020-11-22 22:53:00 Romero Limon H ospital ESTIMATED GFR 2020-11-22 22:53:00 Romero Limon spital XR ABDOMEN ACUTE INC CHEST 2020-11-02 22:51:00 Cliff Levy [facility] 1V ESTIMATED GFR 2020-11-02 21:55:00 [facility] HC COMPLETE BLD COUNT 2020-11-02 21:55:00 Calos Garcia [facility] W/AUTO DIFF COMPREHENSIVE METABOLIC 2020-11-02 21:55:00 Calos Garcia [facility] PANEL PROTHROMBIN TIME WITH INR 2020-11-02 21:55:00 Calos Garcia [facility] COVID-19 QUALITATIVE 2020-11-02 21:05:00 [facility] NM BRAIN SPECT W I 123 2020-10-26 19:02:00 Cliff Levy [facility] DATSCAN HC COMPLETE BLD COUNT 2020-10-24 10:15:00 [facility] W/AUTO DIFF BASIC METABOLIC PANEL 2020-10-24 10:15:00 [facility] HEPATIC FUNCTION PANEL 2020-10-24 10:15:00 [facility] MAGNESIUM LEVEL 2020-10-24 10:15:00 [facility]spital PHOSPHORUS LEVEL 2020-10-24 10:15:00 [facility] PROTHROMBIN TIME WITH INR 2020-10-24 10:15:00 [facility] HEMOGLOBIN A1C 2020-10-24 10:15:00 [facility]ital THYROID STIMULATING 2020-10-24 10:15:00 [facility] HORMONE T4 2020-10-24 10:15:00 [facility]ital VITAMIN D 25 HYDROXY LEVEL 2020-10-24 10:15:00 [facility] ZINC LEVEL, SERUM 2020-10-24 10:15:00 [facility] ALPHA FETOPROTEIN 2020-10-24 10:15:00 [facility] ESTIMATED GFR 2020-10-24 10:15:00 [facility]ital URINE DRUGS OF ABUSE 2020-10-24 10:00:00 [facility] SCREEN LACTIC ACID LEVEL, SEPSIS 2020-10-24 06:20:00 [facility] - NOW AND REPEAT 2X EVERY 3 HOURS LACTIC ACID LEVEL, SEPSIS 2020-10-24 02:25:00 [facility] - NOW AND REPEAT 2X EVERY 3 HOURS XR CHEST 1 VW PORTABLE 2020-10-24 00:08:00 Rehrer, [facility] BLOOD CULTURE, AEROBIC & 2020-10-23 23:31:00 Rehrer, [facility] ANAEROBIC RESPIRATORY PATHOGEN PANEL 2020-10-23 23:31:00 Rehrer, [facility] WITH COVID-19 RT-PCR COMPREHENSIVE METABOLIC 2020-10-23 23:31:00 Rehrer, [facility] PANEL PHOSPHORUS LEVEL 2020-10-23 23:31:00 [facility], [facility] MAGNESIUM LEVEL 2020-10-23 23:31:00 Rehrer, [facility] LACTIC ACID LEVEL, SEPSIS 2020-10-23 23:31:00 Heriberto York [facility] - NOW AND REPEAT 2X EVERY 3 HOURS LIPASE LEVEL 2020-10-23 23:31:00 Rehrer, [facility] ESTIMATED GFR 2020-10-23 23:31:00 Rehrer, [facility] HC COMPLETE BLD COUNT 2020-10-23 23:20:00 Rehrer, [facility] W/AUTO DIFF PROTHROMBIN TIME WITH INR 2020-10-23 23:20:00 Rehrer, [facility] PARTIAL THROMBOPLASTIN 2020-10-23 23:20:00 Rehrer, [facility] TIME (PTT) AMMONIA LEVEL 2020-10-23 23:20:00 Rehrer, [facility] HC COMPLETE BLD COUNT 2020-10-10 00:05:00 [facility] W/AUTO DIFF COMPREHENSIVE METABOLIC 2020-10-10 00:05:00 Azevedo, [facility] PANEL LACTIC ACID, I-STAT 2020-10-10 00:05:00 [facility] AMMONIA LEVEL 2020-10-10 00:05:00 [facility] ESTIMATED GFR 2020-10-10 00:05:00 [facility] URINALYSIS 2020-10-09 23:32:00 [facility] ECG 12-LEAD 2020-10-09 23:18:[address] [facility] COMPLETE BLD COUNT 2020-09-21 10:28:00 [facility] W/AUTO DIFF BASIC METABOLIC PANEL 2020-09-21 10:28:00 [facility] HEPATIC FUNCTION PANEL 2020-09-21 10:28:00 [facility] MAGNESIUM LEVEL 2020-09-21 10:28:00 [facility]ital PHOSPHORUS LEVEL 2020-09-21 10:28:00 [facility] PROTHROMBIN TIME WITH INR 2020-09-21 10:28:00 [facility] MISCELLANEOUS REFERRAL 2020-09-21 10:28:00 [facility] TEST VITAMIN B12 LEVEL 2020-09-21 10:28:00 [facility] FOLATE LEVEL 2020-09-21 10:28:00 [facility]spital ESTIMATED GFR 2020-09-21 10:28:00 [facility]ital COVID-19 QUALITATIVE 2020-09-20 20:51:00 [facility] Robby [facility] RT-PCR Gabriel HC COMPLETE BLD COUNT 2020-09-20 12:08:00 [facility] W/AUTO DIFF BASIC METABOLIC PANEL 2020-09-20 12:08:00 [facility] HEPATIC FUNCTION PANEL 2020-09-20 12:08:00 [facility] MAGNESIUM LEVEL 2020-09-20 12:08:00 [facility]ital PHOSPHORUS LEVEL 2020-09-20 12:08:00 [facility] PROTHROMBIN TIME WITH INR 2020-09-20 12:08:00 [facility] HEMOGLOBIN A1C 2020-09-20 12:08:00 [facility]ital THYROID STIMULATING 2020-09-20 12:08:00 [facility] HORMONE T4 2020-09-20 12:08:00 [facility]ital VITAMIN D 25 HYDROXY LEVEL 2020-09-20 12:08:00 [facility] ZINC LEVEL, SERUM 2020-09-20 12:08:00 [facility] ALPHA FETOPROTEIN 2020-09-20 12:08:00 [facility] ESTIMATED GFR 2020-09-20 12:08:00 [facility] ospital CT CERVICAL SPINE WO 2020-09-20 06:50:26 Marcel [facility] CONTRAST Renee CT PELVIS WO CONTRAST 2020-09-20 06:50:16 Marcel [facility] CT HEAD WO CONTRAST 2020-09-20 06:50:07 Bonny Rod [facility] OR CRITICAL CARE, E/M 2020-09-20 04:05:41 Marcel [facility] 30-74 MINUTES Renee URINE CULTURE 2020-09-20 04:00:00 Bonny Rod spital [place] URINALYSIS SCREEN AND 2020-09-20 04:00:00 Marcel [facility] MICROSCOPY, WITH REFLEX TO [place]e CULTURE URINE DRUGS OF ABUSE 2020-09-20 04:00:00 Bonny Rod [facility] SCREEN [place]enee MAGNESIUM LEVEL 2020-09-20 04:00:00 Bonny Rod Ho spital [place]e TROPONIN 2020-09-20 04:00:00 [facility] 3 VW LEFT 2020-09-20 02:06:29 Marcel [facility] Renee XR KNEE 3 VW RIGHT 2020-09-20 02:06:09 Marcel [facility] Renee XR SHOULDER 2+ VW RIGHT 2020-09-20 02:05:46 Bonny Rod [facility] HC COMPLETE BLD COUNT 2020-09-20 02:05:00 [facility] [place]enee PROTHROMBIN TIME WITH INR 2020-09-20 02:05:00 Bonny Rod [facility] Renee PARTIAL THROMBOPLASTIN 2020-09-20 02:05:00 [facility] ([facility] [place] COMPREHENSIVE METABOLIC 2020-09-20 02:05:00 Bonny Rod [facility] PANEL [place] TROPONIN 2020-09-20 02:05:00 [facility] B NATRIURETIC PEPTIDE 2020-09-20 02:05:00 Bonny Rod [facility] Renee AMMONIA LEVEL 2020-09-20 02:05:00 Bonny Rod spimateo Renee ALCOHOL LEVEL, BLOOD 2020-09-20 02:05:00 [facility] ESTIMATED GFR 2020-09-20 02:05:00 [facility] Plan of Care Planned Activity Planned Date Details Comments Source Future Scheduled 2021-09-12 COLONOSCOPY SCREENING [facility] Test 12:13:11 [code = COLONOSCOPY SCREENING] Future Scheduled 2021-09-12 SHINGLES VACCINES Method [facility] Test 12:13:11 (#1) [code = SHINGLES VACCINES (#1)] Future Scheduled 2021-09-12 BREAST CANCER [facility] Test 12:13:11 SCREENING [code = BREAST CANCER SCREENING] Future Scheduled 2021-09-12 COVID-19 VACCINE (2 - [facility] Test 12:13:11 Booster for Yanira series) [code = COVID-19 VACCINE (2 - Booster for Yanira series)] Future Scheduled 2021-09-12 INFLUENZA VACCINE Method [facility] Test 12:13:11 [code = INFLUENZA VACCINE] Future Scheduled 2021-09-12 Screening for [facility] Test 12:13:11 malignant neoplasm of cervix (procedure) [code = 482189362] Future Scheduled 2021-08-[address] [facility] Test 00:00:00 (procedure) [code = [facility] 47535637] Future Scheduled [address] [facility] Test 00:00:00 [facility] cerv[facility]procedure) [code = 794079771] Future Scheduled 1980 DTAP/TDAP/TD VACCINES [facility] Test 00:00:00 (1 - Tdap) [code = Medical enter DTAP/TDAP/TD VACCINES (1 - Tdap)] Future Scheduled 1973 COVID-19 VACCINE (1) [facility] Test 00:00:00 [code = COVID-[address] VACCINE (1)] Future Scheduled [address] [facility] Test 00:00:00 [facility] breast (procedure) [code = 932871550] Future Scheduled [address] [facility] Test 00:00:00 [facility] colon (procedure) [code = 491822100] Encounters Start End Encounter Admission Attending Care Care Encounter Source Date/Time Date/Time Type Type Clinicians Facility Department ID 2022-03-22 [facility] [id number] Common 08:23:00 Fernando [id number] [facility] 2021-09-06 [facility] [id number] Common 13:49:19 Fernando [id number] [facility] 2021-09-06 [facility] [id number] Common 13:45:16 Fernando [id number] [facility] 2021-09-06 [facility] [id number] Common 12:49:41 Fernando [id number] [facility] 2021-09-06 [facility] [id number] Common 12:05:14 Fernando [id number] [facility] 2021-09-06 [facility] [id number] Common 12:03:44 Fernando [id number] [facility] 2021-09-06 [facility] [id number] Common 11:42:32 Fernando [id number] [facility] 2021-09-06 [facility] [id number] Common 11:33:04 Fernando [id number] [facility] 2022-02-17 2022-02-23 Inpatient ROLANDO, [facility] [id number] [place] 00:00:00 00:00:00 PIERCE 147 Method i 2022-02-09 2022-02-09 Outpatient [facility] [id number] [facility] 15:00:00 15:00:00 SALLY tatum of [facility] 2022-02-08 2022-02-08 Orders Doctor KIRIT [id number] [facility] 00:00:00 00:00:00 Only Unassigned, MICHAEL [id number] ity of [place] [facility] [id number] Brent as [phone] [address] 2022-01-30 2022-01-30 [facility] 1.2.840.114 [id number] [facility] 00:00:00 00:00:00 [facility] [id number] it y of Ricki PORRAS 4.2.7.2.686 Brent as VAMSI?BLEA [phone] [address] MEDICAL OFFICE BUILDING 2022-01-10 2022-01-10 Outpatient JOSE, [facility] [id number] [place] 00:00:00 00:00:00 CALOS [address] [facility] 2022-01-10 2022-01-10 Outpatient GALATI, [facility] [id number] [place] 00:00:00 00:00:00 CALOS [address] 2021-11-30 2021-11-30 ambulatory STLMLC STLMLC [id number] Common 00:00:00 00:00:00 [facility] 2021-11-16 2021-11-16 Office Jay RUST [id number] [facility] 13:30:00 14:32:33 Visit Luisana VERN [id number] i ty [facility] 4.2.7.2.686 Kalyani s PROFESSIO [phone] Ks dical NAL [address] [place] [address] 2021-10-27 2021-11-04 Inpatient TING [facility] [id number] 61 [place] 00:00:00 00:00:00 Ava PIERSON Method i [address] [facility] 2021-10-16 2021-10-16 ambulatory STLMLC STLMLC [id number] Common 00:00:00 00:00:00 [facility] 2021-10-13 2021-10-13 ambulatory STLMLC STLMLC [id number] Common 00:00:00 00:00:00 [facility] 2021-09-25 2021-09-25 ambulatory STLMLC STLMLC [id number] Common 00:00:00 00:00:00 [facility] 2021-09-01 2021-09-16 Inpatient ER RAFAEL, [facility] [id number] [facility] 22:15:00 12:13:00 KENDY 2021-09-04 2021-09-04 ambulatory STLMLC STLMLC [id number] Common 00:00:00 00:00:00 [facility] 2021-09-01 2021-09-01 DocumentST MadaiZoe [id number] [facility] 00:00:00 00:00:00 lupillo [facility] 2021-09-01 2021-09-01 Telephone Cristofer 1.2.840.1 [id number] Methodi 00:00:00 00:00:[address] Matthew 3.430.2.7 Hospit a .3.688310 l .8 2021-08-30 2021-08-31 Emergency ADALI, [facility] [id number] [place] 00:00:00 00:00:00 MOISES [address] 2021-08-30 2021-08-30 Travel 1.2.840.1 1.2.987.658 [id number] Methodi 00:00:00 00:00:[address] 3.430.2.7 0.2.7.3.698 Ho spita .3.332039 084.8 l .8 2021-08-29 2021-08-29 [facility] [id number] [place] 00:00:00 00:00:00 CALOS [address] 2021-08-29 2021-08-29 Travel 1.2.840.1 1.2.244.809 [id number] Methodi 00:00:00 00:00:[address] 3.430.2.7 0.2.7.3.698 Ho spita .3.208952 084.8 l .8 2021-08-25 2021-08-25 Travel 1.2.840.1 1.2.842.708 8196 [id number] Methodi 00:00:00 00:00:[address] 3.430.2.7 0.2.7.3.698 Ho spita .3.258230 084.8 l .8 2021-08-17 2021-08-25 [facility] DAVINAJENNIFER 1.2.840.1 [id number] [place] 00:00:00 00:00:00 Encounter 53043.1.1 [id number] .3.570516 .8 2021-08-24 2021-08-24 Surgery [facility], 1.2.840.1 [id number] Methodi 09:00:00 10:25:[address] 3.430.2.7 Hospit a .3.916455 l .8 2021-08-24 2021-08-24 Documentat Delcano, 1.2.840.1 [id number] Methodi 00:00:00 00:00:00 lupillo [place] [address]145.1.[address] Matthew 3.430.2.7 Hospit a .3.291135 l .8 2021-08-23 2021-08-23 [facility] 1.2.840.1 [id number] Methodi 00:00:00 00:00:00 lupillo [place] [address] Matthew 3.430.2.7 Hospit a .3.353364 l .8 2021-08-21 2021-08-21 Social Jaimes, 1.2.840.1 [id number] Methodi 12:37:39 13:37:39 Work Kirit 06725.1.[address] 3.430.2.7 Hospit a .3.472810 l .8 2021-08-21 2021-08-21 Documentat [facility], 1.2.840.1 [id number] Methodi 00:00:00 00:00:00 lupillo [place] [address] Matthew 3.430.2.7 Hospit a .3.155232 l .8 2021-08-21 2021-08-21 Telephone Pops, 1.2.840.1 [id number] [id number] Methodi 00:00:00 00:00:[address] 3.430.2.7 Hospit a .3.388314 l .8 2021-08-18 2021-08-18 Travel 1.2.840.1 1.2.363.116 [id number] Methodi 00:00:00 00:00:[address] 3.430.2.7 0.2.7.3.698 Ho spita .3.717124 084.8 l .8 2021-08-10 2021-08-11 Emergency Adali, 1.2.840.1 [id number] Methodi 20:25:00 01:30:[address] Rylee 3.430.2.7 Ho spita .3.080887 l .8 2021-08-10 2021-08-10 Travel 1.2.840.1 1.2.557.839 0149 [id number] Methodi 00:00:00 00:00:[address] 3.430.2.7 0.2.7.3.698 Ho spita .3.654457 084.8 l .8 2021-07-28 2021-07-28 ambulatory STLMLC STLMLC [id number] Common 00:00:00 00:00:00 [facility] 2021-07-25 2021-07-25 Telephone Stephanie, 1.2.840.1 [id number] Methodi 00:00:00 00:00:[address] 3.430.2.7 Hospit a .3.256091 l .8 2021-07-24 2021-07-24 Telephone Pops, 1.2.840.1 [id number] [id number] Methodi 00:00:00 00:00:[address] 3.430.2.7 Hospit a .3.390228 l .8 2021-07-12 2021-07-12 ambulatory STLMLC STLMLC [id number] Common 00:00:00 00:00:00 [facility] 2021-06-29 2021-06-29 Travel 1.2.840.1 1.2.243.208 [id number] [id number] Methodi 00:00:00 00:00:[address] 3.430.2.7 0.2.7.3.698 Ho spita .3.803836 084.8 l .8 2021-06-28 2021-06-28 Emergency NUSZEN, [facility] [id number] 37 [place] 00:00:00 00:00:00 ROMERO [address] 2021-06-22 2021-06-22 Behavioral John, 1.2.840.1 [id number] Methodi 00:00:00 00:00:00 Health Kaleb 28923.1.[address] Johnny 3.430.2.7 Hospit a .3.347377 l .8 2021-06-18 2021-06-21 [facility], 1.2.840.1 [id number] [id number] [place] 00:00:00 00:00:00 Encounter PIERCE 93953.1.1 [address] .3.915007 .8 2021-06-18 2021-06-18 Travel 1.2.840.1 1.2.899.330 6837 [id number] Methodi 00:00:00 00:00:[address] 3.430.2.7 0.2.7.3.698 Ho spita .3.225143 084.8 l .8 2021-06-16 2021-06-16 Orders [facility], 1.2.840.4 [id number] Methodi 00:00:00 00:00:00 Only Eusebia E [address]14.1.[address] 3.430.2.7 Hospit a .3.620734 l .8 2021-06-08 2021-06-08 Clinical 1.2.840.1 [id number] Methodi 12:04:06 13:04:[address] 3.430.2.7 Hospit a .3.904565 l .8 2021-06-05 2021-06-05 Telephone John, 1.2.840.1 [id number] 2099 [id number] Methodi 00:00:00 00:00:[address] Johnny 3.430.2.7 Hospit a .3.440663 l .8 2021-05-31 2021-06-02 [facility] [place], 1.2.840.1 [id number] [id number] [place] 00:00:00 00:00:00 Encounter HERIBERTO 41596.1.1 [address] .3.693398 .8 2021-05-31 2021-05-31 Travel 1.2.840.1 1.2.118.295 7137 [id number] Methodi 00:00:00 00:00:[address] 3.430.2.7 0.2.7.3.698 Ho spita .3.515529 084.8 l .8 2021-05-24 2021-05-27 [facility], [facility] 012 [id number] 53 [place] 00:00:00 00:00:00 Encounter PIERCE [address] 2021-05-24 2021-05-24 Travel 1.2.840.1 1.2.536.165 [id number] Methodi 00:00:00 00:00:[address] 3.430.2.7 0.2.7.3.698 Ho spita .3.505151 084.8 l .8 2021-05-23 2021-05-23 Outpatient STLMLC STLMLC [id number] Common 00:00:00 00:00:00 [facility] 2021-05-19 2021-05-19 Outpatient STLMLC STLMLC [id number] Common 00:00:00 00:00:00 [facility] 2021-05-01 2021-05-01 Outpatient STLMLC STLMLC [id number] Common 00:00:00 00:00:00 [facility] 2021-04-26 2021-04-26 Outpatient STLMLC STLMLC [id number] Common 00:00:00 00:00:00 [facility] 2021-04-26 2021-04-26 Outpatient STLMLC STLMLC [id number] Common 00:00:00 00:00:00 [facility] 2021-04-26 2021-04-26 Outpatient STLMLC STLMLC [id number] Common 00:00:00 00:00:00 [facility] 2021-01-13 2021-01-13 Outpatient STLMLC STLMLC [id number] Common 00:00:00 00:00:00 [facility] 2020-12-13 2020-12-13 Outpatient STLMLC STLMLC [id number] Common 00:00:00 00:00:00 [facility] 2020-11-28 2020-11-28 Patient [place], 1.2.840.1 [id number] Methodi 00:00:00 00:00:00 Outreach Bia 79516.1.[address] 3.430.2.7 Hospit a .3.829736 l .8 2020-11-25 2020-11-25 Patient Cynthiat, 1.2.840.1 [id number] Methodi 00:00:00 00:00:00 Outreach Bia 39452.1.[address] 3.430.2.7 Hospit a .3.157520 l .8 2020-11-24 2020-11-24 Patient Randal, 1.2.840.1 [id number] 94469 Methodi 00:00:00 00:00:00 Outreach Bia 62998.1.[address] 3.430.2.7 Hospit a .3.591106 l .8 2020-11-22 2020-11-23 Emergency FermínWild Tomiwa 1.2.840. 1 [id number] Methodi 17:29:00 16:26:00 [address]ard [address]124.1.[address] 3.430.2.7 Hospit a .3.982239 l .8 2020-11-22 2020-11-22 Travel 1.2.840.1 1.2.047.614 6182 [id number] Methodi 00:00:00 00:00:[address] 3.430.2.7 0.2.7.3.698 Ho spita .3.538092 084.8 l .8 2020-11-17 2020-11-17 Outpatient STLMLC STLMLC [id number] Common 00:00:00 00:00:00 [facility] 2020-11-02 2020-11-02 [facility] Cliff Levy 1.2.840.1 [id number] Methodi 16:45:00 23:59:00 Encounter Calos Garcia 04636.1.[address] 3.430.2.7 Hospit a .3.197725 l .8 2020-11-02 2020-11-02 Lab Jose 1.2.840.1 [id number] Methodi 16:00:31 16:05:31 Calos Feng 37627.1.[address] 3.430.2.7 Hospit a .3.652073 l .8 2020-11-02 2020-11-02 Travel 1.2.840.1 1.2.949.015 7883 [id number] Methodi 00:00:00 00:00:[address] 3.430.2.7 0.2.7.3.698 Ho spita .3.921208 084.8 l .8 2020-10-26 2020-10-26 [facility] 1.2.840.1 [id number] Methodi 12:51:36 23:59:00 Encounter Cliff Marion 16547.1.[address] 3.430.2.7 Hospit a .3.773406 l .8 2020-10-26 2020-10-26 [facility] 1.2.840.1 [id number] Methodi 08:10:06 12:50:00 Encounter Cliff Marion 32102.1.[address] 3.430.2.7 Hospit a .3.281072 l .8 2020-10-26 2020-10-26 Travel 1.2.840.1 1.2.620.312 3408 [id number] Methodi 00:00:00 00:00:[address] 3.430.2.7 0.2.7.3.698 Ho spita .3.323399 084.8 l .8 2020-10-23 2020-10-24 [facility] 1.2.840.1 [id number] Methodi 17:57:00 14:46:00 Encounter Heriberto York 03389.1.[address] Ting RizvisBaylee 3.430.2.7 [facility] Pierce Cisneros .3.411404 l .8 2020-10-13 2020-10-13 Travel 1.2.840.1 1.2.530.651 [id number] [id number] Methodi 00:00:00 00:00:[address] 3.430.2.7 0.2.7.3.698 Ho spita .3.449958 084.8 l .8 2020-10-12 2020-10-12 Transcribe Mildred, 1.2.840.1 [id number] Methodi 00:00:00 00:00:00 Orders Cliff Marion 97506.1.[address] 3.430.2.7 Hospit a .3.798311 l .8 2020-10-11 2020-10-11 Outpatient STLMLC STLMLC [id number] Common 00:00:00 00:00:00 [facility] 2020-10-09 2020-10-09 Emergency Azevedo, 1.2.840.1 [id number] Methodi 16:28:00 19:29:[address] Gus 3.430.2.7 Hospit a .3.865400 l .8 2020-10-03 2020-10-03 Outpatient STLMLC STLMLC [id number] Common 00:00:00 00:00:00 [facility] 2020-09-19 2020-09-21 [facility] [id number] Methodi 16:55:00 14:27:00 Encounter Heriberto York 53130.1.[address] Jennifer Ghosh 3.430.2.7 Hos lis .3.873296 l .8 2020-09-15 2020-09-15 Transcribe Jose, 1.2.840.1 [id number] [id number] Methodi 00:00:00 00:00:[address] Sheryl Feng [address]604.1.[address] 3.430.2.7 Hospit a .3.866630 l .8 2020-09-14 2020-09-14 Outpatient STLMLC STLMLC [id number] Common 00:00:00 00:00:00 [facility] 2020-08-31 2020-09-02 Inpatient DINAKAR, [facility] [id number] 438 [place] 00:00:00 00:00:00 PIERCE 426 Method i 2020-08-10 2020-08-13 Inpatient CHELA, [facility] 012 [id number] [place] 00:00:00 00:00:00 HERIBERTO 301 Method i 2020-08-09 2020-08-09 Emergency NUSZEN, [facility] 064 [id number] 75 [place] 00:00:00 00:00:00 ROMERO 618 Method i 2020-08-08 2020-08-08 Emergency WEIBEL, [facility] 064 [id number] 08 [place] 00:00:00 00:00:00 NOBLE 028 Method i 2020-07-27 2020-07-27 Outpatient STLMLC STLMLC [id number] Common 00:00:00 00:00:00 [facility] 2020-07-18 2020-07-18 Outpatient [facility] [id number] 692 [place] 00:00:00 00:00:00 996 Method i 2020-07-04 2020-07-07 Inpatient JENNIFER GHOSH [facility] 064 [id number] [place] 00:00:00 00:00:[address] 2020-06-28 2020-06-28 Outpatient STLMLC STLMLC [id number] Common 00:00:00 00:00:00 [facility] 2020-06-20 2020-06-20 Outpatient STLMLC STLMLC [id number] Common 00:00:00 00:00:00 [facility] 2020-05-30 2020-06-03 Inpatient JENNIFER GHOSH [facility] 064 [id number] [place] 00:00:00 00:00:00 431 Method i 2020-05-27 2020-05-27 Outpatient YALAMANCHIL [facility] [id number] [place] 00:00:00 00:00:00 YIFAN Torres 752 Meth erasto 2020-05-20 2020-05-20 Outpatient STLMLC STLMLC [id number] Common 00:00:00 00:00:00 [facility] 2020-05-13 2020-05-17 Inpatient MCCARTAN, [facility] 064 [id number] [place] 00:00:00 00:00:00 MERCY 422 Method i 2020-04-13 2020-04-21 Inpatient YOJANA, [facility] 064 [id number] 65 [place] 00:00:00 00:00:00 JUNO [address] 2020-04-13 2020-04-13 [facility] [id number] Common 16:02:00 16:02:[address] [facility] 2020-04-13 2020-04-13 [facility] 32 [id number] Common 09:33:00 09:33:[address] [facility] 2020-04-05 2020-04-05 [facility] [id number] Common 09:10:00 09:10:[address] [facility] 2020-04-04 2020-04-04 [facility] [id number] Common 10:58:00 10:58:[address] [facility] 2020-04-04 2020-04-04 [facility] [id number] Common 10:00:00 10:00:[address] [facility] 2020-03-17 2020-03-19 Inpatient TING [facility] 064 [id number] 84 [place] 00:00:00 00:00:00 DANGELO 082 Method i BAYLEE 2020-03-16 2020-03-16 [facility] [id number] Common 11:12:00 11:12:[address] [facility] 2020-03-14 2020-03-14 Outpatient JACQUELIN, [facility] [id number] [place] 00:00:00 00:00:00 THOMASMED 426 Method i 2020-03-10 2020-03-10 [facility] [id number] Common 13:18:00 13:18:[address] [facility] 2020-03-07 2020-03-07 [facility] 31 [id number] Common 16:07:00 16:07:[address] [facility] 2020-03-04 2020-03-04 [facility] [id number] Common 11:00:00 11:00:[address] [facility] 2020-03-04 2020-03-04 [facility] 30 [id number] Common 11:00:00 11:00:[address] [facility] 2020-03-04 2020-03-04 Outpatient MEAGAN, [facility] [id number] 128 [place] 00:00:00 00:00:00 JAYASIMHA 578 Meth erasto 2020-02-18 2020-02-21 Inpatient YORK, [facility] 064 [id number] 1993 [place] 00:00:00 00:00:00 HERIBERTO 304 Method i 2020-01-18 2020-01-20 Inpatient DINAKAR, [facility] [id number] 718 [place] 00:00:00 00:00:00 PIERCE 881 Method i 2020-01-07 2020-01-11 Inpatient YORK, [facility] 064 [id number] [place] 00:00:00 00:00:00 HERIBERTO 087 Method i 2019-12-29 2019-12-29 [facility] [id number] Common 07:03:00 07:03:[address] [facility] 2019-12-23 2019-12-25 Inpatient TING [facility] 064 [id number] 99 [place] 00:00:00 00:00:00 PIERSON, 540 Method i BAYLEE 2019-12-23 2019-12-23 Outpatient JACQUELIN, [facility] [id number] 0835 [place] 00:00:00 00:00:00 AHMED 960 Method i 2019-12-22 2019-12-22 Office HERMELINDA Choe 1.2.840.114 [id number] 14:08:03 14:56:41 [place] 13580.1.13.10 Surgical 4.2.7.2.686 Special [id number] es 198 [place] 2019-10-12 2019-10-15 Inpatient CHELA, [facility] 012 [id number] [place] 00:00:00 00:00:00 HERIBERTO 906 Method i 2019-09-01 2019-09-03 Inpatient CHELA, [facility] [id number] [place] 00:00:00 00:00:00 HERIBERTO 637 Method i 2019-07-20 2019-07-20 [facility] [id number] Common 14:02:00 14:02:[address] [facility] 2019-07-16 2019-07-16 [facility] [id number] Common 13:15:00 13:15:[address] [facility] 2019-06-16 2019-06-18 Inpatient CHELA, [facility] [id number] [place] 00:00:00 00:00:00 HERIBERTO 382 Method i 2019-05-07 2019-05-08 Outpatient DARCY, UMAR [facility] [id number] [place] 00:00:00 00:00:00 691 Method i 2019-04-23 2019-04-23 Outpatient JOSE, [facility] [id number] 307 [place] 00:00:00 00:00:00 CALOS Porter Method i 2019-04-23 2019-04-23 Outpatient JACQUELIN, [facility] [id number] [place] 00:00:00 00:00:00 EBONY Knapp Method i 2019-04-15 2019-04-15 [facility] [id number] Common 14:19:00 14:19:[address] [facility] 2019-04-09 2019-04-09 [facility] [id number] Common 14:00:00 14:00:[address] [facility] 2018-09-09 2018-09-09 [facility] [id number] Common 14:45:00 14:45:[address] [facility] 2018-04-15 2018-04-15 [facility] 15 [id number] Common 12:02:00 12:02:[address] [facility] 2018-02-19 2018-02-19 [facility] [id number] Common 15:08:00 15:08:[address] [facility] 2018-01-24 2018-01-24 [facility] [id number] Common 11:15:00 11:15:[address] [facility] Results Test Description Test Time Test Comments Results Result Comments Source SARS-CoV-2 (COVID-19) RNA [Presence] in Respiratory sp ecimen by 2022-02-17 16:50:47 GUSTAVO with probe detection Test Item Value Reference Range Interpretation Comme nts SARS-CoV-2 (COVID-19) RNA [Presence] in Respiratory specimen by Not detected GUSTAVO with probe detection (test code = 86978-7) 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 (test code = Un known 13199-9) Whether the patient has symptoms related to condition of interest U nknown (test code = 83842-2) Whether the patient was hospitalized for condition of interest Unkn own (test code = 18542-1) Whether the patient was admitted to intensive care unit (ICU) for U nknown condition of interest (test code = 37034-6) Whether patient resides in a congregate care setting (test code = U nknown 37708-5) status (test code = 63081-0) Unknown Date and time of symptom onset (test code = 26751-6) Unknown 37736-FAQ ENTEROGRAPHY ABDOMEN & PELVIS [id number] 13:32:43 [facility] : 1960 Sex: FCLINICAL INDICATIO N: K50.90, Crohns disease, unspecified, without complications K92.1, Melena R19.4, Change in bowel habitMODALITY: Simio 3T MRITECHNIQUE: Parallel imaging is accomplished using T2, in-phase, xtk-hj-zdnyh, and breath-holding sequences. 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 ID - ADMINHEPATITIS C [id number] 23:01:06 Test Item Value Reference Range Interpretation Comments HEPATITIS C ANTIBODY (BEAKER) Nonreactive Nonreactive (test code = 367) Refinery Operator Helper ID - ADMINHEPATITIS A ANTIBODY, [id number] 23:01:06 Test Item Value Reference Range Interpretation Comments HEPATITIS A IGM ANTIBODY (BEAKER) Nonreactive Nonreactive (test code = 498) Refinery Operator Helper ID - [id number] (COVID-19) RNA [Presence] in Respiratory specimen by GUSTAVO with probe [id number] 04:55:57 Test Item Value Reference Range Interpretation Comments SARS-CoV-2 (COVID-19) RNA Not detected [Presence] in Respiratory specimen by GUSTAVO with probe detection (test code = 91895-3) 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 employed in a Unknown healthcare setting (test code = 89042-7) Whether the patient has symptoms Unknown related to condition of interest (test code = 11327-1) Whether the patient was Unknown hospitalized for condition of interest (test code = 47577-8) Whether the patient was admitted Unknown to intensive care unit (ICU) for condition of interest (test code = 59150-6) Whether patient resides in a Unknown congregate care setting (test code = 21671-2) status (test code = Unknown 98457-3) Date and time of symptom onset Unknown (test code = 00546-7) SARS-CoV-2 (COVID-19) RNA [Presence] in Respiratory specimen by GUSTAVO with probe [id number] 01:48:29 Test Item Value Reference Range Interpretation Comments SARS-CoV-2 (COVID-19) RNA Not detected [Presence] in Respiratory specimen by GUSTAVO with probe detection (test code = 25040-4) 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 employed in a Unknown healthcare setting (test code = 75796-1) Whether the patient has symptoms Unknown related to condition of interest (test code = 81821-3) Whether the patient was Unknown hospitalized for condition of interest (test code = 52050-0) Whether the patient was admitted Unknown to intensive care unit (ICU) for condition of interest (test code = 98700-3) Whether patient resides in a Unknown congregate care setting (test code = 05573-4) status (test code = Unknown 51237-7) Date and time of symptom onset Unknown (test code = 59426-6) CT, [id number] 08:50:00Unlisted Reason for Exam - Click Yes and Enter Reason Below->YesUnlisted Reason for Exam->diarrhea. abdominal pain. C dif colitis.Is this for enterography?->NoWill this procedure require oral c ontrast?->[facility] : 1960 Sex: FFINAL [...] Small right pleural effusion. Signed: Quentin Sims [facility] Verified Date/Time: 09/15/2021 08:50:57 BASIC METABOLIC [id number] 07:34:36 Test Item Value Reference Range Interpretation [...] S NOT APPLICABLE FOR DIALYSIS PATIEN TS. Refinery Operator Helper ID - EOSpecimen moderately ictericHEPATIC FUNCTION [id number] 07:29:08 Test Item Value Reference Range Interpretation [...] Specimen slightly (test code = 347) hemolyzed Refinery Operator Helper ID - EOSpecimen moderately ictericPROTHROMBIN [id number] 06:46:58 Test Item Value Reference Range Interpretation Comments PROTIME (BEAKER) 22.1 seconds 11.9-14.2 H (test code = 759) INR (BEAKER) (test 1.96 See_Comment [Automat ed message] code = 370) The system ClearContext generated this result transmitted ref erence range: <=5.90. The reference range was not used to int erpret this result as normal/abnormal . RECOMMENDED COUMADIN/WARFARIN INR THERAPY RANGESSTANDARD DOSE: 2.0 - 3.0 Includes: PROPHYLAXIS for venous thrombosis, systemic embolization; TREATMENT for venous thrombosis and/or pulmonary embolus.HIGH RISK: Target INR is 2.5-3.5 for patients with mechanical heart valves.CBC W/PLT COUNT & AUTO [id number] 06:38:55 Test Item Value Reference Range Interpretation [...] = 2801) CBC W/PLT COUNT & AUTO [id number] 10:18:58 Test Item Value Reference Range Interpretation [...] (BEAKER) (test code = 2801) BASIC METABOLIC [id number] 08:06:00 Test Item Value Reference Range Interpretation [...] S NOT APPLICABLE FOR DIALYSIS PATIEN TS. Refinery Operator Helper ID - PIAYA LSpecimen moderately ictericHEPATIC FUNCTION [id number] 08:06:00 Test Item Value Reference Range Interpretation [...] (test code = 19 U/L 6-55 347) Refinery Operator Helper ID - MARLON Ferrera moderately ictericPROTHROMBIN [id number] 07:51:15 Test Item Value Reference Range Interpretation Comments PROTIME (BEAKER) 20.6 seconds 11.9-14.2 H (test code = 759) INR (BEAKER) (test 1.80 See_Comment [Automat ed message] code = 370) The system [employer] generated this result transmitted ref erence range: <=5.90. The reference range was not used to int erpret this result as normal/abnormal . RECOMMENDED COUMADIN/WARFARIN INR THERAPY RANGESSTANDARD DOSE: 2.0 - 3.0 Includes: PROPHYLAXIS for venous thrombosis, systemic embolization; TREATMENT for venous thrombosis and/or pulmonary embolus.HIGH RISK: Target INR is 2.5-3.5 for patients with mechanical heart valves.HEPATIC FUNCTION [id number] 07:41:30 Test Item Value Reference Range Interpretation [...] (test code = 21 U/L 6-55 347) Refinery Operator Helper ID - MARLON Ferrera moderately ictericBASIC METABOLIC [id number] 07:41:29 Test Item Value Reference Range Interpretation [...] S NOT APPLICABLE FOR DIALYSIS PATIEN TS. Refinery Operator Helper ID - PIAYA LSpecimen moderately ictericPROTHROMBIN [id number] 07:34:58 Test Item Value Reference Range Interpretation Comments PROTIME (BEAKER) 19.3 seconds 11.9-14.2 H (test code = 759) INR (BEAKER) (test 1.66 See_Comment [Automat ed message] code = 370) The system [employer]Context generated this result transmitted ref erence range: <=5.90. The reference range was not used to int erpret this result as normal/abnormal . RECOMMENDED COUMADIN/WARFARIN INR THERAPY RANGESSTANDARD DOSE: 2.0 - 3.0 Includes: PROPHYLAXIS for venous thrombosis, systemic embolization; TREATMENT for venous thrombosis and/or pulmonary embolus.HIGH RISK: Target INR is 2.5-3.5 for patients with mechanical heart valves.CBC W/PLT COUNT & AUTO [id number] 07:30:35 Test Item Value Reference Range Interpretation [...] PERCENT (BEAKER) (test code = 2801) VITAMIN [id number] 07:00:04 Test Item Value Reference Range Interpretation Comments VITAMIN B12 (BEAKER) (test code = > pg/mL 213-816 H 774) Refinery Operator Helper ID Ajay FRANK WBASIC METABOLIC [id number] 06:43:51 Test Item Value Reference Range Interpretation [...] S NOT APPLICABLE FOR DIALYSIS PATIEN TS. Refinery Operator Helper ID - ZAC WOperator ID - MARLON LSpecimen slightly ictericVITAMIN D, [id number] 05:27:33 Test Item Value Reference Range Interpretation Comments VITAMIN D 25-OH (BEAKER) (test code 4.4 ng/mL 6.6-49.9 L = 2764) Effective 05/22/2017: Reference Range ChangeNew: 6.6-49.9 ng/mL Previous: 13.0- 47.8 ng/mLRecommendedVitamin D Target Range: 30.0-40.0 ng/mLOperator ID - MARLON LC-REACTIVE [id number] 05:23:46 Test Item Value Reference Range Interpretation Comments C-REACTIVE PROTEIN (BEAKER) (test 1.00 mg/dL 0.00-0.50 H code = 676) Refinery Operator Helper ID - ZAC [id number] 05:23:45 Test Item Value Reference Range Interpretation Comments MAGNESIUM (BEAKER) (test code = 1.6 mg/dL 1.6-2.6 627) Refinery Operator Helper ID - ZAC WHEPATIC FUNCTION [id number] 05:23:45 Test Item Value Reference Range Interpretation [...] (test code = 17 U/L 6-55 347) Refinery Operator Helper GINA Rosales slightly ictericPROTHROMBIN [id number] 04:53:27 Test Item Value Reference Range Interpretation Comments PROTIME (BEAKER) 22.4 seconds 11.9-14.2 H (test code = 759) INR (BEAKER) (test 2.00 See_Comment [Automat ed message] code = 370) The system ClearContext generated this result transmitted ref erence range: <=5.90. The reference range was not used to int erpret this result as normal/abnormal . RECOMMENDED COUMADIN/WARFARIN INR THERAPY RANGESSTANDARD DOSE: 2.0 - 3.0 Includes: PROPHYLAXIS for venous thrombosis, systemic embolization; TREATMENT for venous thrombosis and/or pulmonary embolus.HIGH RISK: Target INR is 2.5-3.5 for patients with mechanical heart valves.CBC W/PLT COUNT & AUTO [id number] 04:49:49 Test Item Value Reference Range Interpretation [...] (BEAKER) (test code = 2801) Basic Metabolic [id number] 08:26:03 Test Item Value Reference Range Interpretation Comments Sodium (test code = 137 meq/L 306-357 4829-2) Potassium (test code 3.5 meq/L 3.5-5.1 = 2823-3) Chloride (test code = 109 meq/L 98-107 H 2074-0) CO2 (test code = 24 meq/L 22-29 2028-9) BUN (test code = 13 mg/dL 7-21 3094-0) Creatinine (test code 0.73 mg/dL 0.57-1.25 = 2160-0) Glucose (test code = 85 mg/dL 70-105 2345-7) Calcium (test code = 7.7 mg/dL 8.4-10.2 L 88000-0) EGFR (test code = 81 mL/min/1.73 [place] [address]-2) NOT ACCURATE CREATININE CLEARANCE IN PREDICTING GLOMERULAR FILTRATION RATE . ESTIMATED GFR I S NOT APPLICABLE FOR DIALYSIS PATIENTS. REJI (test code = REJI) Refinery Operator Helper ID - MARLON Davisanaid ID - DBSpecimen slightly icteric Lab Interpretation Abnormal (test code = 25004-5) [facility] METABOLIC [id number] 08:26:03 Test Item Value Reference Range Interpretation Comments SODIUM (BEAKER) 137 meq/L 136-145 (test code = 381) POTASSIUM (BEAKER) 3.5 meq/L 3.5-5.1 (test code = 379) CHLORIDE (BEAKER) 109 meq/L 98-107 H (test code = 382) CO2 (BEAKER) (test 24 meq/L -29 code = 355) BLOOD UREA NITROGEN 13 [...] S NOT APPLICABLE FOR DIALYSIS PATIEN TS. Refinery Operator Helper ID - MARLON [place] ID - DBSpecimen slightly ictericHepatic function [id number] 07:24:45 Test Item Value Reference Range Interpretation Comments Protein, Total (test 4.9 See_Comment L [Autom ated code = 2885-2) message] The system which generated this result transmitted reference range : 6.0 - 8.3 gm/dL . The reference range was not used to interpr et this result as normal/abnormal . Albumin (test code = 2.2 g/dL 3.5-5.0 L 49343-2) Total Bilirubin (test 4.0 mg/dL 0.2-1.2 H code = 1974-2) Bilirubin, Direct 1.5 mg/dL 0.1-0.5 H (test code = 1967-7) Alkaline Phosphatase 111 U/L 40-150 (test code = 6768-6) AST (test code = 53 U/L 5-34 H 1920-8) ALT (test code = 17 U/L 6-55 1742-6) REJI (test code = REJI) Refinery Operator Helper ID - MARLON LSpecimen slightly icteric Lab Interpretation Abnormal (test code = 98297-6) [facility]2022-01-31 07:24:45 Test Item Value Reference Range Interpretation Comments Magnesium (test code = 1.7 mg/dL 1.6-2.6 43734-3) REJI (test code = REJI) Refinery Operator Helper ID - MARLON L Lab Interpretation (test Normal code = 65009-8) [facility]2022-01-31 07:24:45 Test Item Value Reference Range Interpretation Comments MAGNESIUM (BEAKER) (test code = 1.7 mg/dL 1.6-2.6 627) [employer]inery Operator Helper ID - MARLON LHEPATIC FUNCTION [id number] 07:24:45 Test Item Value Reference Range Interpretation [...] (test code = 17 U/L 6-55 347) Refinery Operator Helper ID - ELODIARADHA LSpecimen slightly ictericProthrombin time/[id number] 06:40:57 Test Item Value Reference Interpretation Comments [...] valves. Lab Interpretation Abnormal (test code = 66649-7) [facility][id number] 06:40:57 Test Item Value Reference Range Interpretation Comments PROTIME (BEAKER) 22.5 seconds 11.9-14.2 H (test code = 759) INR (BEAKER) (test 2.01 See_Comment [Automat ed message] code = 370) The system [employer] generated this result transmitted ref erence range: <=5.90. The reference range was not used to int erpret this result as normal/abnormal . RECOMMENDED COUMADIN/WARFARIN INR THERAPY RANGESSTANDARD DOSE: 2.0 - 3.0 Includes: PROPHYLAXIS for venous thrombosis, systemic embolization; TREATMENT for venous thrombosis and/or pulmonary embolus.HIGH RISK: Target INR is 2.5-3.5 for patients with mechanical heart valves.CBC with platelet count + automated [id number] 06:36:06 Test Item Value Reference Range Interpretation Comments WBC (test code = 6690-2) 10.6 See_Comment H [A utomated message] The system [employer] generated this result transmitted ref erence range: 3.5 - 10 .5 K/L. The refe rence range was not u sed to interpret this result as normal/abnor mal. RBC (test code = 789-8) 2.76 See_Comment L [Au tomated message] The system [employer] generated this result transmitted ref erence range: 3.93 - 5 .22 M/L. The refe rence range was not u sed to interpret this result as normal/abnor mal. MCHC (test code = 786-4) 31.5 See_Comment L [A utomated message] The system [employer] generated this result transmitted ref erence range: [...] L [Aut omated message] 777-3) The system [employer] generated this result transmitted ref erence range: 150 - 45 0 K/CU MM. The referen ce range was not u sed to interpret this result as normal/abnor mal. MPV (test code = 9.6 fL 9.4-12.3 69685-2) nRBC (test code = 413) 0 See_Comment [Aut omated message] The system [employer] generated this result transmitted ref erence range: [...] H [Aut omated message] 670) The system [employer] generated this result transmitted ref erence range: 1.56 - 6 .13 K/L. The refe rence range was not u sed to interpret this result as normal/abnor mal. # Lymphs (test code = 1.18 See_Comment [Auto mated message] 414) The system [employer] generated this result transmitted ref erence range: 1.18 - 3 .74 K/L. The refe rence range was not u sed to interpret this result as normal/abnor mal. # Monos (test code = 0.64 See_Comment H [Autom ated message] 415) The system [employer] generated this result transmitted ref erence range: 0.24 - 0 .36 K/L. The refe rence range was not u sed to interpret this result as normal/abnor mal. # Eos (test code = 416) 0.31 See_Comment [Au tomated message] The system [employer] generated this result transmitted ref erence range: 0.04 - 0 .36 K/L. The refe rence range was not u sed to interpret this result as normal/abnor mal. # Baso (test code = 417) 0.02 See_Comment [A utomated message] The system [employer] generated this result transmitted ref erence range: 0.01 - 0 .08 K/L. The refe rence range was not u sed to interpret this result as normal/abnor mal. Immature 1 % 0-1 Granulocytes-Relative (test code = 2801) Lab Interpretation (test Abnormal code = 61251-2) [facility] W/PLT COUNT & AUTO [id number] 06:36:06 Test Item Value Reference Range Interpretation [...] (BEAKER) (test code = 2801) BASIC METABOLIC [id number] 09:04:28 Test Item Value Reference Range Interpretation [...] S NOT APPLICABLE FOR DIALYSIS PATIEN TS. Refinery Operator Helper ID - DBSpecimen moderately wmvkwkeRTIYQSVOV2127-32-46 08:26:10 Test Item Value Reference Range Interpretation Comments MAGNESIUM (BEAKER) (test code = 1.8 mg/dL 1.6-2.6 627) Refinery Operator Helper ID - DBHEPATIC FUNCTION FIXOA2310-11-28 08:26:10 Test Item Value Reference Range Interpretation [...] (test code = 17 U/L 6-55 347) Refinery Operator Helper ID - DBSpecimen moderately ictericPROTHROMBIN TIME/[id number] 07:14:13 Test Item Value Reference Range Interpretation Comments PROTIME (BEAKER) 23.1 seconds 11.9-14.2 H (test code = 759) INR (BEAKER) (test 2.08 See_Comment [Automat ed message] code = 370) The system [employer] generated this result transmitted ref erence range: <=5.90. The reference range was not used to int erpret this result as normal/abnormal . RECOMMENDED COUMADIN/WARFARIN INR THERAPY RANGESSTANDARD DOSE: 2.0 - 3.0 Includes: PROPHYLAXIS for venous thrombosis, systemic embolization; TREATMENT for venous thrombosis and/or pulmonary embolus.HIGH RISK: Target INR is 2.5-3.5 for patients with mechanical heart valves.CBC W/PLT COUNT & AUTO [id number] 07:07:41 Test Item Value Reference Range Interpretation [...] (BEAKER) (test code = 2801) BASIC METABOLIC [id number] 09:04:18 Test Item Value Reference Range Interpretation [...] S NOT APPLICABLE FOR DIALYSIS PATIEN TS. Refinery Operator Helper ID - DBOperator ID - DBSpecimen moderately ictericHEPATIC FUNCTION [id number] 07:53:06 Test Item Value Reference Range Interpretation [...] (test code = 16 U/L 6-55 347) Refinery Operator Helper ID - DBSpecimen moderately ictericManual Rwnwhiipdful3581-18-94 07:50:25 Test Item Value Reference Range Interpretation [...] = 3438) REJI (test code = REJI) Refinery Operator Helper ID - michaela He comments: Slide comments: Lab Interpretation (test Abnormal code = 12995-1) [facility](CELLAVISION MANUAL DIFF)2021-09-09 07:50:25 Test Item Value [...] CONCENTRATION Decreased (CELLAVISION)(BEAKER) (test code = 3438) Refinery Operator Helper ID - michaela Cutler comments: Slide comments:CBC W/PLT COUNT & AUTO [id number] 07:50:24 Test Item Value Reference Range Interpretation [...] WBC 0-0 (test code = 413) PROTHROMBIN TIME/[id number] 06:28:05 Test Item Value Reference Range Interpretation Comments PROTIME (BEAKER) 24.0 seconds 11.9-14.2 H (test code = 759) INR (BEAKER) (test 2.18 See_Comment [Automat ed message] code = 370) The system [employer] generated this result transmitted ref erence range: [...] = No growth in 5 days 6463-4) [facility]BLOOD [id number] 14:01:01 Test Item Value Reference Range Interpretation Comments CULTURE (BEAKER) (test No growth in 5 days code = 1095) Pqbfgxb9107-84-13 11:09:32 Test Item Value Reference Range Interpretation Comments Ammonia (test code = 35 See_Comment [Autom ated 49148-9) message] The system which generated this result transmit barron reference range : 18 - 72 mol/L . The reference range was not u sed to interpret th is result as normal/abnormal . REJI (test code = REJI) Refinery Operator Helper ID - MARLON L Lab Interpretation Normal (test code = 05181-2) [facility] 11:09:32 Test Item Value Reference Range Interpretation Comments AMMONIA (BEAKER) (test code = 348) 35 mol/L 18-72 Refinery Operator Helper ID - MARLON LCBC W/PLT COUNT & AUTO PBIPKZVWFNMJ2813-06-30 07:57:44 Test Item Value Reference Range Interpretation [...] CONCENTRATION Decreased (CELLAVISION)(BEAKER) (test code = 3438) Refinery Operator Helper ID - Ishanperla comments: Slide comments:BASIC METABOLIC [id number] 06:46:23 Test Item Value Reference Range Interpretation [...] S NOT APPLICABLE FOR DIALYSIS PATIEN TS. Refinery Operator Helper ID - ZAC WOODSpecimen slightly wfofqfbUlmteuliuy0931-59-75 06:42:47 Test Item Value Reference Range Interpretation Comments Phosphorus (test code = 2.4 mg/dL 2.3-4.7 2777-1) REJI (test code = REJI) Refinery Operator Helper ID Ajay FRANK W Lab Interpretation (test Normal code = 17309-6) [facility] 06:42:47 Test Item Value Reference Range Interpretation Comments PHOSPHORUS (BEAKER) (test code = 2.4 mg/dL 2.3-4.7 604) Refinery Operator Helper ID Ajay FRANK WHEPATIC FUNCTION [id number] 06:42:47 Test Item Value Reference Range Interpretation [...] (test code = 15 U/L 6-55 347) Refinery Operator Helper ID Ajay Rosales slightly ictericPROTHROMBIN TIME/[id number] 05:37:24 Test Item Value Reference Range Interpretation Comments PROTIME (BEAKER) 26.6 seconds 11.9-14.2 H (test code = 759) INR (BEAKER) (test 2.48 See_Comment [Automat ed message] code = 370) The system [employer] generated this result transmitted ref erence range: [...] CONCENTRATION Decreased (CELLAVISION)(BEAKER) (test code = 3438) Refinery Operator Helper ID - Cindy Gibson comments: Slide comments:CBC W/PLT COUNT & AUTO [id number] 09:40:43 Test Item Value Reference Range Interpretation [...] 0-0 (test code = 413) BASIC METABOLIC [id number] 07:22:45 Test Item Value Reference Range Interpretation [...] S NOT APPLICABLE FOR DIALYSIS PATIEN TS. Refinery Operator Helper ID - MARLON LSpecimen slightly pwwtgnrRTFZWDNVKW3966-55-70 07:16:27 Test Item Value Reference Range Interpretation Comments PHOSPHORUS (BEAKER) (test code = 2.2 mg/dL 2.3-4.7 L 604) Refinery Operator Helper ID - MARLON LHEPATIC FUNCTION [id number] 07:16:27 Test Item Value Reference Range Interpretation [...] (test code = 17 U/L 6-55 347) Refinery Operator Helper ID - MARLON LSpecimen slightly ictericBLOOD HHCLKBP1198-01-70 07:00:33 Test Item Value Reference Range Interpretation Comments CULTURE (BEAKER) (test No growth in 5 days code = 1095) PROTHROMBIN TIME/[id number] 06:15:38 Test Item Value Reference Range Interpretation Comments PROTIME (BEAKER) 25.1 seconds 11.9-14.2 H (test code = 759) INR (BEAKER) (test 2.31 See_Comment [Automat ed message] code = 370) The system [employer] generated this result transmitted ref erence range: <=5.90. The reference range was not used to int erpret this result as normal/abnormal . RECOMMENDED COUMADIN/WARFARIN INR THERAPY RANGESSTANDARD DOSE: 2.0 - 3.0 Includes: PROPHYLAXIS for venous thrombosis, systemic embolization; TREATMENT for venous thrombosis and/or pulmonary embolus.HIGH RISK: Target INR is 2.5-3.5 for patients with mechanical heart valves.Ova and Parasite Tfnszkixlkn8993-82-29 08:26:13 Test Item Value Reference Range Interpretation Comments O&P Direct Smear (test No ova or parasites No ova or code = 71025-6) seen parasites seen REJI (test code = REJI) See scanned report Lab Interpretation (test Normal code = 55267-5) [facility] 07:29:32 Test Item Value Reference Range Interpretation Comments PHOSPHORUS (BEAKER) (test code = 1.5 mg/dL 2.3-4.7 LL 604) Refinery Operator Helper ID - ZAC WBASIC METABOLIC [id number] 07:09:27 Test Item Value Reference Range Interpretation [...] S NOT APPLICABLE FOR DIALYSIS PATIEN TS. Refinery Operator Helper ID - ZAC WSpecimen slightly ictericPROTHROMBIN TIME/[id number] 06:57:19 Test Item Value Reference Range Interpretation Comments PROTIME (BEAKER) 23.2 seconds 11.9-14.2 H (test code = 759) INR (BEAKER) (test 2.09 See_Comment [Automat ed message] code = 370) The system [employer] generated this result transmitted ref erence range: [...] CONCENTRATION Decreased (CELLAVISION)(BEAKER) (test code = 3438) Refinery Operator Helper ID - nabil Julian comments: Slide comments:[id number] 15:08:54 Test Item Value Reference Range Interpretation Comments PHOSPHORUS (BEAKER) (test code = 1.2 mg/dL 2.3-4.7 LL 604) Refinery Operator Helper ID - BSBASIC METABOLIC [id number] 15:04:30 Test Item Value Reference Range Interpretation [...] S NOT APPLICABLE FOR DIALYSIS PATIEN TS. Refinery Operator Helper ID - BSSpecimen slightly ictericHEPATIC FUNCTION ULWTY1504-99-10 15:02:35 Test Item Value Reference Range Interpretation [...] (test code = 17 U/L 6-55 347) Refinery Operator Helper ID - BSSpecimen slightly ictericPROTHROMBIN TIME/[id number] 14:50:10 Test Item Value Reference Range Interpretation Comments PROTIME (BEAKER) 24.9 seconds 11.9-14.2 H (test code = 759) INR (BEAKER) (test 2.28 See_Comment [Automat ed message] code = 370) The system [employer] generated this result transmitted ref erence range: <=5.90. The reference range was not used to int erpret this result as normal/abnormal . RECOMMENDED COUMADIN/WARFARIN INR THERAPY RANGESSTANDARD DOSE: 2.0 - 3.0 Includes: PROPHYLAXIS for venous thrombosis, systemic embolization; TREATMENT for venous thrombosis and/or pulmonary embolus.HIGH RISK: Target INR is 2.5-3.5 for patients with mechanical heart valves.CBC W/PLT COUNT & AUTO [id number] 14:44:53 Test Item Value Reference Range Interpretation [...] (test code = 413) Clostridium difficile GDH [id number] 21:23:26 Test Item Value Reference Range Interpretation Comments C. Difficle Toxin Positive Negative A (test code = 3469037116) C. Difficile GDH Positive Negative A Confirms Antigen (test code = Clostri dium 0331949019) difficile-assoc ia barron infection.First line therapy - [...] use. Lab Interpretation Abnormal (test code = 88228-3) [facility]. DIFFICILE GDH [id number] 21:23:26 Test Item Value Reference Range Interpretation Comments CDT TOXIN (test code Positive Negative A = 6324626399) CDT GDH ANTIGEN Positive Negative A Confirms Maria Esther stridium (test code = difficile-assoc iated 7633480770) infection.First line therapy - oral Vancomycin. Con [...] MicrobiologyLab prior to clinical use.CT, CHEST, WITH EDRNCEJH5322-94-15 10:14:00Unlisted Reason for Exam - Click Yes and Enter Reason Below->No [facility] 1960 Sex: FFINAL [...] appears intact. No aggressive osseous lesion. Impression: 1.Technically limited study due to significant patient respiratory motion.2. No definite acute findings in the chest.3. Moderate diffuse colonic thickening, consistent with kim colitis. No evidence of bowel perforation or abscess.4. Cirrhosis with patent TIPS shunt. Mildly prominent spleen. Small volumeascites. Signed: Quentin Sims [facility] Verified Date/Time: 09/04/2021 10:14:08 [facility] [id number] 10:14:00Unlisted Reason for Exam - Click Yes and Enter Reason Below->No Is this for enterography?->YesWill this procedure require oral contrast?->Yes [facility] 1960 Sex: FFINAL [...] CONCENTRATION Decreased (CELLAVISION)(BEAKER) (test code = 3438) Refinery Operator Helper ID - michaela Cutler comments: Slide comments:CBC W/PLT COUNT & AUTO [id number] 07:25:32 Test Item Value Reference Range Interpretation [...] /100 WBC 0-0 (test code = 413) [id number] 06:26:19 Test Item Value Reference Range Interpretation Comments PHOSPHORUS (BEAKER) (test code = 1.5 mg/dL 2.3-4.7 LL 604) Refinery Operator Helper ID - ZAC WComprehensive metabolic aklhh1801-68-04 06:18:30 Test Item Value Reference Range Interpretation Comments Protein, Total (test 4.7 See_Comment L [Autom ated code = 2885-2) message] The system which generated this result transmitted reference range : 6.0 - 8.3 gm/dL . The reference range was not used to interpr et this result as normal/abnormal . Albumin (test code = 2.7 g/dL 3.5-5.0 L 78609-6) Alkaline Phosphatase 85 U/L 40-150 (test code [...] (test code = 7.3 mg/dL 8.4-10.2 L 82521-8) AST (test code = 28 U/L 5-34 1920-8) ALT (test code = 14 U/L 6-55 1742-6) EGFR (test code = 53 mL/min/1.73 [place] [address]-3) NOT ACCURATE CREATININE CLEARANCE IN PREDICTING GLOMERULAR FILTRATION RATE . ESTIMATED GFR I S NOT APPLICABLE FOR DIALYSIS PATIENTS. REJI (test code = REJI) Refinery Operator Helper ID - ZAC WSpecimekorin slightly icteric Lab Interpretation Abnormal (test code = 62739-6) [facility] [id number] 06:18:30 Test Item Value Reference Range Interpretation [...] S NOT APPLICABLE FOR DIALYSIS PATIEN TS. Refinery Operator Helper ID - ZAC WSpecimen slightly dtsedmkVPDVYMGGL0401-79-87 06:13:05 Test Item Value Reference Range Interpretation Comments MAGNESIUM (BEAKER) (test code = 2.3 mg/dL 1.6-2.6 627) Refinery Operator Helper ID - ZAC W(CELLAVISION MANUAL DIFF)2021-09-03 14:33:56 [...] CONCENTRATION Decreased (CELLAVISION)(BEAKER) (test code = 3438) Refinery Operator Helper ID - Claudine Rios comments: Slide comments:CBC W/PLT COUNT & AUTO [id number] 14:33:55 Test Item Value Reference Range Interpretation [...] (test code = 413) Hepatitis B surface jbnwdkdu0025-41-50 13:30:11 Test Item Value Reference Range Interpretation Comments Hep B S Ab (test code <8.0 See_Comment [Auto mated = 90086-6) message] The system which generated this result transmit barron reference range : <8.0 mIU/mL. Th e reference range was not used to interpret this result as normal/abnormal . REJI (test code = REJI) Refinery Operator Helper ID - MARLON L Lab Interpretation Normal (test code = 40470-4) [facility] SURFACE [id number] 13:30:11 Test Item Value Reference Range Interpretation Comments HEPATITIS B SURFACE ANTIBODY < mIU/mL <8.0 (BEAKER) (test code = 647) Refinery Operator Helper ID - MARLON LHepatitis A antibody, [id number] 13:23:53 Test Item Value Reference Range Interpretation Comments Hep A IgG (test code = Nonreactive Nonreactive 60367-2) REJI (test code = REJI) Refinery Operator Helper ID - MARLON L Lab Interpretation (test Normal code = 19967-7) [facility] ANTIBODY, [id number] 13:23:53 Test Item Value Reference Range Interpretation Comments HEPATITIS A IGG ANTIBODY (BEAKER) Nonreactive Nonreactive (test code = 2797) Refinery Operator Helper ID - MARLON LHepatitis B core antibody, [id number] 13:23:52 Test Item Value Reference Range Interpretation Comments Hep B Core Total Ab Nonreactive Nonreactive (test code = 35918-3) REJI (test code = REJI) Refinery Operator Helper ID - MARLON L Lab Interpretation (test Normal code = 66143-2) [facility] C ncfyhizm4803-04-72 13:23:52 Test Item Value Reference Range Interpretation Comments Hepatitis C Ab (test Nonreactive Nonreactive code = 17755-9) REJI (test code = REJI) Refinery Operator Helper ID - MARLON L Lab Interpretation (test Normal code = 97959-8) [facility] C [id number] 13:23:52 Test Item Value Reference Range Interpretation Comments HEPATITIS C ANTIBODY (BEAKER) Nonreactive Nonreactive (test code = 367) Refinery Operator Helper ID - MARLON LHEPATITIS B CORE ANTIBODY, [id number] 13:23:52 Test Item Value Reference Range Interpretation Comments HEPATITIS B CORE TOTAL ANTIBODY Nonreactive Nonreactive (BEAKER) (test code = 497) Refinery Operator Helper ID - MARLON LHepatitis B surface grchgso5368-32-27 13:23:51 Test Item Value Reference Range Interpretation Comments HBsAg Screen (test code Nonreactive Nonreactive = 5195-3) REJI (test code = REJI) Specimen is considered negative for HBsAg. Lab Interpretation (test Normal code = 76770-0) [facility] SUR[facility] [id number] 13:23:51 Test Item Value Reference Range Interpretation [...] S NOT APPLICABLE FOR DIALYSIS PATIEN TS. Refinery Operator Helper ID - PIAYA LSpecimen slightly dimblneWWYSEUHFI4615-32-81 12:58:51 Test Item Value Reference Range Interpretation Comments MAGNESIUM (BEAKER) (test code = 2.1 mg/dL 1.6-2.6 627) Refinery Operator Helper ID - MARLON SAULLYWXDNT5943-03-40 12:58:51 Test Item Value Reference Range Interpretation Comments PHOSPHORUS (BEAKER) (test code = 2.3 mg/dL 2.3-4.7 604) Refinery Operator Helper ID - MARLON LPROTHROMBIN TIME/[id number] 12:56:09 Test Item Value Reference Range Interpretation Comments PROTIME (BEAKER) 23.4 seconds 11.9-14.2 H (test code = 759) INR (BEAKER) (test 2.10 See_Comment [Automat ed message] code = 370) The system [employer] generated this result transmitted ref erence range: <=5.90. The reference range was not used to int erpret this result as normal/abnormal . RECOMMENDED COUMADIN/WARFARIN INR THERAPY RANGESSTANDARD DOSE: 2.0 - 3.0 Includes: PROPHYLAXIS for venous thrombosis, systemic embolization; TREATMENT for venous thrombosis and/or pulmonary embolus.HIGH RISK: Target INR is 2.5-3.5 for patients with mechanical heart valves.Urine dnvfqsl8723-84-68 12:15:06 Test Item Value Reference Range Interpretation Comments Result (test code = 6463-4) No growth [facility] -[facility] Egfl3610-95-33 12:43:22 Test Item Value Reference Range Interpretation Comments CAMPYLOBACTER (PCR) Not detected Not detected (test code = 89587-2) PLESIOMONAS SHIGELLOIDES Not detected Not detected (PCR) (test code = 71856-9) SALMONELLA (PCR) (test Not detected Not detected code = 95645-9) YERSINIA ENTEROCOLITICA Not detected Not detected (PCR) (test code = 65611-7) VIBRIO CHOLERAE (PCR) Not detected Not detected (test code = 59655-1) ENTEROAGGREGATIVE E. Not detected Not detected COLI (EAEC) BY PCR (test code = 82242-5) ENTEROPATHOGENIC E. COLI Not detected Not detected (EPEC) BY PCR (test code = 51280-0) ENTEROTOXIGENIC E. COLI Not detected Not detected (ETEC) LT/ST BY PCR (test code = 29712-0) SHIGA-LIKE Not detected Not detected TOXIN-PRODUCING E. COLI (STEC) STX1/STX2 (test code = 74645-2) E. COLI O157 (PCR) (test code = 85659-8) SHIGELLA/ENTEROINVASIVE Not detected Not detected E. COLI (EIEC) BY PCR (test code = 55543-4) CRYPTOSPORIDIUM (PCR) Not detected Not detected (test code = 24408-4) CYCLOSPORA CAYETANENSIS Not detected Not detected (PCR) (test code = 85164-5) ENTAMOEBA HISTOLYTICA Not detected Not detected (PCR) (test code = 49182-3) GIARDIA LAMBLIA (PCR) Not detected Not detected (test code = 91899-8) ADENOVIRUS F 40/41 (PCR) Not detected Not detected (test code = 99186-2) ASTROVIRUS (PCR) (test Not detected Not detected code = 54502-9) NOROVIRUS GI/GII (PCR) Not detected Not detected (test code = 08762-0) ROTAVIRUS A (PCR) (test Not detected Not detected code = 01966-2) SAPOVIRUS (I, II, IV, V) Not detected Not detected BY PCR (test code = 14651-8) VIBRIO Not detected Not detected (PARAHAEMOLYTICUS, VULNIFICUS) (test code = 79627-7) REJI (test code = REJI) Other viruses, [...] [facility] using the [employer] Gastrointestinal Panel. It is FDA cleared and has been verified and approved by the [facility] Molecular Diagnostics Laboratory for clinical use. This laboratory is CLIA-certified and [employer] (CAP)-accredited to perform high complexity testing. [facility] BY [id number] 12:43:22 Test Item Value Reference Range Interpretation Comments CAMPYLOBACTER (PCR) (test code = Not detected Not detected 20160214) PLESIOMONAS SHIGELLOIDES (PCR) Not detected Not detected (test code = 20160218) SALMONELLA (PCR) (test code = Not detected Not detected ) YERSINIA ENTEROCOLITICA (PCR) Not detected Not detected (test code = 8961684) VIBRIO CHOLERAE (PCR) (test code Not detected Not detected = 1451475) ENTEROAGGREGATIVE E. COLI (EAEC) Not detected Not detected BY PCR (test code = 4040271) ENTEROPATHOGENIC E. COLI (EPEC) Not detected Not detected BY PCR (test code = 9075950) ENTEROTOXIGENIC E. COLI (ETEC) Not detected Not detected LT/ST BY PCR (test code = 7484636) SHIGA-LIKE TOXIN-PRODUCING E. Not detected Not detected COLI (STEC) STX1/STX2 (test code = 4203137) E. COLI O157 (PCR) (test code = 0743240) SHIGELLA/ENTEROINVASIVE E. COLI Not detected Not detected (EIEC) BY PCR (test code = 4593884) CRYPTOSPORIDIUM (PCR) (test code Not detected Not detected = 20160320) CYCLOSPORA CAYETANENSIS (PCR) Not detected Not detected (test code = 7505418) ENTAMOEBA HISTOLYTICA (PCR) Not detected Not detected (test code = 1854889) GIARDIA LAMBLIA (PCR) (test code Not detected Not detected = 20160413) ADENOVIRUS F 40/41 (PCR) (test Not detected Not detected code = 20160414) ASTROVIRUS (PCR) (test code = Not detected Not detected 20160415) NOROVIRUS GI/GII (PCR) (test Not detected Not detected code = 2194936) ROTAVIRUS A (PCR) (test code = Not detected Not detected 5334512) SAPOVIRUS (I, II, IV, V) BY PCR Not detected Not detected (test code = 8689012) VIBRIO (PARAHAEMOLYTICUS, Not detected Not detected VULNIFICUS) (test code = 6731791) Other viruses, parasites and bacteria not targeted by this PCR panel cannot be excluded; therefore clinical correlation and follow up of serology, culture results, and other molecular studies is required. The results are not intended to be used as the sole means for clinical diagnosis or patient management decisions. This sample was tested at the [facility] Molecular Diagnostics Laboratory using the [employer] Gastrointestinal Panel. It is FDA cleared and [...] CONCENTRATION Decreased (CELLAVISION)(BEAKER) (test code = 3438) Refinery Operator Helper ID - PrateekMartitaperla comments: Slide comments:CBC W/PLT COUNT & AUTO TWBYPJWMRKAB8519-06-01 08:49:57 Test Item Value Reference Range Interpretation [...] (test code = 413) Vitamin B12 and Ljztkm3516-92-86 07:20:11 Test Item Value Reference Range Interpretation Comments Vitamin B12 (test 1116 pg/mL 213-816 H code = 2132-9) Folate (test code = 3.50 ng/mL See_Comment L [Automa barron 2284-8) message] The system which generated this result transmit barron reference range : >=7.00. The reference range was not used to interpret this result as normal/abnormal . REJI (test code = REJI) Refinery Operator Helper ID - SHAQUILLE Reynolds Lab Interpretation Abnormal (test code = 49040-0) [facility] [id number] 07:20:11 Test Item Value Reference Range Interpretation Comments VITAMIN B12 (BEAKER) 1116 pg/mL 213-816 H (test code = 774) FOLATE (BEAKER) 3.50 ng/mL See_Comment L [Automated message] (test code = 362) The system which generated this result transmitted ref erence range: >=7.00. The reference range was not used to interpr et this result as normal/abnormal . Refinery Operator Helper ID - SHAQUILLE MCOMPREHENSIVE METABOLIC BNHTV6683-47-99 06:57:06 Test Item Value Reference Range Interpretation [...] S NOT APPLICABLE FOR DIALYSIS PATIEN TS. Refinery Operator Helper GINA CORBIN MSpecimen slightly ictericC-Reactive Czcqjbm5018-94-29 06:55:26 Test Item Value Reference Range Interpretation Comments CRP (test code = 676) 4.64 mg/dL 0.00-0.50 H REJI (test code = REJI) Refinery Operator Helper GINA Reynolds Lab Interpretation (test Abnormal code = 41959-5) [facility] 06:55:26 Test Item Value Reference Range Interpretation Comments PHOSPHORUS (BEAKER) (test code = 1.8 mg/dL 2.3-4.7 L 604) Refinery Operator Helper GINA CORBIN MC-REACTIVE [id number] 06:55:26 Test Item Value Reference Range Interpretation Comments C-REACTIVE PROTEIN (BEAKER) (test 4.64 mg/dL 0.00-0.50 H code = 676) Refinery Operator Helper ID - SHAQUILLE ONWBOWOTHA6876-43-91 06:55:25 Test Item Value Reference Range Interpretation Comments MAGNESIUM (BEAKER) (test code = 2.3 mg/dL 1.6-2.6 627) Refinery Operator Helper ID - SHAQUILLE Corina, TIBC, % sat. (without ferritin)2021-09-02 06:44:00 Test Item Value Reference Range Interpretation Comments Iron (test code = 2498-4) 28.0 ug/dL 40.0-160.0 L TIBC (test code = 2500-7) 243 ug/dL 250-450 L Iron % Saturation (test 12 % 20-55 L code = 2502-3) REJI (test code = REJI) Refinery Operator Helper ID - SHAQUILLE M Lab Interpretation (test Abnormal code = 84273-5) [facility], TIBC, % SAT. (WITHOUT FERRITIN)2021-09-02 06:44:00 Test Item Value Reference Range Interpretation Comments IRON (BEAKER) (test code = 547) 28.0 ug/dL 40.0-160.0 L TOTAL IRON BINDING CAPACITY 243 ug/dL 250-450 L (BEAKER) (test code = 769) IRON % SATURATION (2) (BEAKER) 12 % 20-55 L (test code = 2590) Refinery Operator Helper ID - SHAQUILLE MCT, BRAIN, WITHOUT FSYUJKAH0738-05-00 03:54:00Unlisted Reason for Exam - Click Yes and Enter Reason Below->No [facility] 1960 Sex: FFINAL [...] MDReport Verified Date/Time: 09/02/2021 03:54:37 U/S, ABDOMINAL, [id number] 03:38:00 Abdomen limited area? Add comment if clarification is needed.->Right upper quadrantReason for exam:->evaluate biliary tree/liver [facility] 1960 Sex: FFINAL REPORT INDICATION: evaluate biliary tree/liver COMPARISON: None. TECHNIQUE: Real-timetransabdominal gomez scale and color Doppler ultrasound of [...] 09/02/2021 03:38:29 Urinalysis w/Microscopic + Reflex to [id number] 02:29:12 Test Item Value Reference Range Interpretation Comments Color, UA (test code Brown = 5778-6) Clarity, UA (test Hazy code = 5767-9) Specific [place], UA 1.029 1.001-1.035 (test code = 5811-5) pH, UA (test code = 6.0 5.0-8.0 5803-2) Protein, UA (test 30 mg/dL Negative A code = 08187-4) Glucose, UA (test Negative Negative code = 365) Ketones, UA (test Negative Negative code = 2514-8) Bilirubin, UA (test Negative Negative code = 67728-3) Blood, UA (test code Small Negative A = 89044-6) Nitrite, UA (test Negative Negative code = 5802-4) Leukocytes, UA (test Moderate Negative A code = 5799-2) Urobilinogen, UA 0.2 mg/dL 0.2-1.0 (test code = 26579-8) RBC, UA (test code = 18 See_Comment [Autom ated 95478-4) message] The system which generated this result [...] . Bacteria, UA (test Rare code = 33182-7) Mucus (test code = Moderate 8247-9) Squam Epithel, UA 2 See_Comment [Automate d (test code = 23984-0) messag e] The system which generated this result transmit barron reference range : /HPF. The reference range was not used to interpret this result as normal/abnormal . Hyaline Casts, UA 3 See_Comment [Automate d (test code = 88539-2) messag e] The system which generated this result transmit barron reference range : /LPF. The reference range was not used to interpret this result as normal/abnormal . Crystals, Urine (test None Seen code = 19403-6) Amorphous Crystals Rare (test code = 93638-2) Specimen Source (test code = 2795) REJI (test code = REJI) Refinery Operator Helper ID - [auto]Refinery Operator Helper ID - tech Lab Interpretation Abnormal (test code = 77833-2) [facility]FLEX URINE [id number] 02:29:12 Test Item Value Reference Range Interpretation [...] = 1584) SOURCE(BEAKER) (test code = 2795) Refinery Operator Helper ID - [auto]Refinery Operator Helper ID - techRAD, CHEST, 1 VIEW, NON IHPY7614-41-61 01:45:00Reason for exam:->leukocytosis, unable to provide historyShould this be performed at the bedside?->Yes [facility] 1960 Sex: FFINAL [...] 09/02/2021 01:45:23 CBC W/PLT COUNT & AUTO [id number] 00:20:23 Test Item Value Reference Range Interpretation [...] CONCENTRATION Decreased (CELLAVISION)(BEAKER) (test code = 3438) Refinery Operator Helper ID - Curtis Mitchel comments: Slide comments:PT/rXUK8069-49-02 23:44:49 Test Item Value Reference Interpretation Comments Range Protime (test code = 22.8 See_Comment H [Autom ated 8342-2) message] The system which generated this result transmitted reference range : 11.9 - 14.2 seconds. The reference range was not used to interpret this result as normal/abnormal . INR (test code = 2.04 See_Comment [Automated 0228-6) message] The system which generated this result transmitted reference range : <=5.90. The reference range was not used to interpret this result as normal/abnormal . PTT (test code = 35.2 See_Comment [Automated 78347-6) message] The system which generated this result [...] valves. Lab Interpretation Abnormal (test code = 11225-2) [facility] HospitalPT/YLIG4044-74-30 23:44:49 Test Item Value Reference Range Interpretation [...] for patients with mechanical heart valves.BASIC METABOLIC [id number] 23:31:12 Test Item Value Reference Range Interpretation [...] S NOT APPLICABLE FOR DIALYSIS PATIEN TS. Refinery Operator Helper ID - DBSpecimen slightly ypfxngpBHMEQSNYO7076-87-55 23:19:46 Test Item Value Reference Range Interpretation Comments MAGNESIUM (BEAKER) (test code = 1.8 mg/dL 1.6-2.6 627) Refinery Operator Helper ID - MOUPJJRTZZGM3370-17-26 23:19:46 Test Item Value Reference Range Interpretation Comments PHOSPHORUS (BEAKER) (test code = 1.9 mg/dL 2.3-4.7 L 604) Refinery Operator Helper ID - DBHEPATIC FUNCTION RDZKF0760-95-05 23:19:46 Test Item Value Reference Range Interpretation [...] (test code = 14 U/L 6-55 347) Refinery Operator Helper ID - DBSpecimen slightly ictericLactic acid, izqzuy9901-07-82 23:13:03 Test Item Value Reference Range Interpretation Comments Lactate, Venous (test 2.88 mmol/L 0.50-2.20 H code = 2872) REJI (test code = REJI) Refinery Operator Helper ID - DBSpecimen slightly icteric Lab Interpretation (test Abnormal code = 28350-5) [facility] HospitalLACTIC ACID, [id number] 23:13:03 Test Item Value Reference Range Interpretation Comments LACTATE BLOOD VENOUS (2) (BEAKER) 2.88 mmol/L 0.50-2.20 H (test code = 2872) Refinery Operator Helper ID - DBSpecimen slightly ictericPOC-Glucose sfvvc1204-23-24 22:47:30 Test Item Value Reference Range Interpretation Comments POC-Glucose Meter (test 106 mg/dL 70-110 : TE STED AT [facility] code = 1538) [address] [facility], [address] 30: Refinery Operator Helper/Techni sowmya ID = [id number] for ULLATTIL, TAYA K Lab Interpretation (test Normal code = 53601-8) [facility] HospitalPOCT-GLUCOSE [id number] 22:47:30 Test Item Value Reference Range Interpretation Comments POC-GLUCOSE METER 106 mg/dL 70-110 : TESTED A T [facility] [address] (BEAKER) (test code = [place], 1538) [address]: Refinery Operator Helper/Techni sowmya ID = [id number] for WALE FITZPATRICK C1Q class 1 & 2 wjyjchci5399-69-42 17:38:21 Test Item Value Reference Range Interpretation Comments Interpretation (test code ADDITIONAL ANTIBODY = 1155602) INFORMATION:DQ7 = DQB1*03:01; DQA1*05:03DQ7 = DQB1*03:19; DQA1*05:05DQ7 = DQB1*03:01; DQA1*06:01DQ9 = DQB1*03:03; DQA1*02:01DQ9 = DQB1*03:03; DQA1*03:02DQ8 = DQB1*03:02; DQA1*03:01DQ8 = DQB1*03:02; DQA1*03:02 Case number (test code = [id number]) C1Q class 1 & 2 antibody See link below for (test code = 0909648) PDF [facility] Report [facility], diffusion, lung volumes, MIPS/[id number] 19:27:26 Test Item Value Reference Range Interpretation [...] (test code = 67.9 % 5368) [facility] dowocpn2769-20-55 13:53:30 Test Item Value Reference Range Interpretation Comments POC glucose (test code = 124 mg/dL 65-99 H Ope rator Name: [id number]) Clint Bustamante RDevice ID: [id number] able : [facility] Notified apartment leasing agent Interpretation (test Abnormal code = 72526-5) [facility] antigen opqfp9325-73-08 11:33:46 Test Item Value Reference Range Interpretation Comments SAB interpretation (test Additional Antibody code = 5950) Information:DQ2=DQB1 *02:01/DQA1*04:01, DQB1*02:01/DQA1*05:0 5DQ7=SKF3*04:02/DQA1 *04:16PB8=ZNQ1*03:01 /DPA1*01:03, DPB1*03:01/DPA1*02:0 5JL3=GTI9*04:02/DPA1 *01:56WP26=GPT1*28:0 1/DPA1*01:03 SAB serum ID (test code = [id number] 5866) [facility] serum collection D&T 08/23/2021 05:49 AM (test code = 5867) SAB class I antibody A11,A74,A32,A3,A31,A assignment (test code = 30,A36,A1,A29,A66,A8 5870) 0,A26,A25,A43,A34,A3 3,B82 SAB cPRA class I (test code = 5868) SAB class II antibody DR18,DR17,DR13,DR14, assignment (test code = DR52,DR11,DR8,DQ7,DR 5871) 12,DQ9,DR9,DR7,DQ8,D Q2,DR4,DQ4,DP2,DP14, DP4,DP9,DP10,DP18,DP 20,DP17,DP3,DP28 SAB cPRA class II (test code = 5869) Case number (test code = [id number]) Single antigen beads See link below for (test code = 4604) PDF [facility] Report [facility], [facility], pzekh3871-01-91 20:20:55 Test Item Value Reference Range Interpretation Comments Collection start date, urine (test 08/23/21 code = 07257-9) Collection start time, urine (test 8:40 code = 85679-0) Collection stop date, urine (test 08/24/21 code = 87431-9) Collection stop time, urine (test 8:40 code = 72827-3) Hours of collection (test code = 34130-0) Total volume, urine (test code = 800 mL 98810-1) Urine protein concentration (test 7 mg/dL code = 41765-0) Urine protein excretion (test code = mg/vol 2448) [facility] HospitalCreatinine level, urine, [id number] 20:20:52 Test Item Value Reference Range Interpretation Comments Collection start date, urine (test 08/23/21 code = 44023-6) Collection start time, urine (test 8:40 code = 61391-7) Collection stop date, urine (test 08/24/21 code = 28811-7) Collection stop time, urine (test 8:40 code = 46209-3) Hours of collection (test code = 70107-5) Total volume, urine (test code = 800 mL 41869-9) Urine creatinine concentration 114 mg/dL (test code = 33031-1) Urine creatinine excretion (test mg/vol code = 64394-4) [facility] [Presence] in Respiratory specimen by GUSTAVO with probe omfruzkux8356-83-23 20:48:05 Test Item Value Reference Range Interpretation Comments SARS-CoV-2 (COVID-19) RNA Not detected Not-Detected [Presence] in Respiratory specimen by GUSTAVO with probe detection (test code = 73631-9) 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 (test code = 48041-1) Whether the patient has symptoms related to condition of interest (test code = 27032-0) Patient was hospitalized because of this condition (test code = 71284-6) Whether the patient was admitted to intensive care unit (ICU) for condition of interest (test code = 97200-1) Whether patient resides in a congregate care setting (test code = 74523-2) ECG 12 [id number] 15:33:38 Test Item Value Reference Range Interpretation Comments Ventricular rate (test code = 253) Atrial rate (test code = 255) OR interval (test code = 266) QRSD interval [...] out Inferior infarct , age undetermined-Abnormal ECG- [facility] transplant badatugiws3727-13-69 14:27:40 Test Item Value Reference Range Interpretation Comments HLA transplant evaluation See link below for (test code = 40423-3) PDF Lab Report Case number (test code = [id number]) [facility] ED Preliminary Interpretation - Not an Vejyp2099-55-28 02:54:33 Test Item Value Reference Range Interpretation Comments REJI (test code = REJI) Orlando Balderrama MD 08/17/2021 10:33 [facility] ED Preliminary Interpretation - Not an OrderPerformed by: Orlando Balderrama MDAuthorized by: Orlando Balderrama MD ECG reviewed by ED Physician in the absence of a spinning mule operator: yes Interpretation: Interpretation: abnormal Rate: ECG rate: 80 ECG rate assessment: normal Rhythm: Rhythm: sinus rhythm QRS: QRS axis: Normal QRS intervals: NormalST segments: ST segments: NormalOther findings: Other findings: prolonged qTc interval Lab Interpretation Abnormal (test code = 83781-6) [facility] [Presence] in Respiratory specimen by GUSTAVO with probe obeedsssm9509-72-43 23:59:30 Test Item Value Reference Range Interpretation Comments SARS-CoV-2 (COVID-19) RNA Not detected Not-Detected [Presence] in Respiratory specimen by GUSTAVO with probe detection (test code = 50868-6) 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 (test code = 49213-2) Whether the patient has symptoms related to condition of interest (test code = 97956-0) Patient was hospitalized because of this condition (test code = 23068-0) Whether the patient was admitted to intensive care unit (ICU) for condition of interest (test code = 53963-6) Whether patient resides in a congregate care setting (test code = 62558-3) status (test code = 89030-3) SARS-CoV-2 (COVID-19) RNA [Presence] in Respiratory specimen by GUSTAVO with probe rwhrxrzow0363-20-60 14:46:31 Test Item Value Reference Range Interpretation Comments SARS-CoV-2 (COVID-19) RNA Not detected Not-Detected [Presence] in Respiratory specimen by GUSTAVO with probe detection (test code = 45207-8) 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 (test code = 23602-9) Whether the patient has symptoms related to condition of interest (test code = 51891-6) Patient was hospitalized because of this condition (test code = 86183-0) Whether the patient was admitted to intensive care unit (ICU) for condition of interest (test code = 11594-0) Whether patient resides in a congregate care setting (test code = 61121-8) status (test code = 99492-6) SARS-CoV-2 (COVID-19) RNA [Presence] in Respiratory specimen by GUSTAVO with probe xbhodrnwu7860-63-66 19:52:10 Test Item Value Reference Range Interpretation Comments SARS-CoV-2 (COVID-19) RNA Not detected Not-Detected [Presence] in Respiratory specimen by GUSTAVO with probe detection (test code = 41999-8) 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 (test code = 44365-5) Whether the patient has symptoms related to condition of interest (test code = 41616-8) Patient was hospitalized because of this condition (test code = 73878-5) Whether the patient was admitted to intensive care unit (ICU) for condition of interest (test code = 27739-0) Whether patient resides in a congregate care setting (test code = 94560-9) status (test code = 38940-2) SARS-CoV-2 (COVID-19) RNA [Presence] in Respiratory specimen by GUSTAVO with probe rxzzzuryh0460-26-35 19:31:11 Test Item Value Reference Range Interpretation Comments SARS-CoV-2 (COVID-19) RNA Not detected Not-Detected [Presence] in Respiratory specimen by GUSTAVO with probe detection (test code = 21951-2) 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 (test code = 39479-6) Whether the patient has symptoms related to condition of interest (test code = 76045-2) Patient was hospitalized because of this condition (test code = 23732-1) Whether the patient was admitted to intensive care unit (ICU) for condition of interest (test code = 42128-1) Whether patient resides in a congregate care setting (test code = 08344-8) status (test code = 66875-8) SARS-CoV-2 (COVID-19) RNA [Presence] in Respiratory specimen by GUSTAVO with probe avimnpkwg2391-39-74 02:26:38 Test Item Value Reference Range Interpretation Comments SARS-CoV-2 (COVID-19) RNA Not detected Not-Detected [Presence] in Respiratory specimen by GUSTAVO with probe detection (test code = 67541-6) SARS-CoV-2 (COVID-19) RNA [Presence] in Respiratory specimen by GUSTAVO with probe pkbuddwao9727-34-67 21:10:32 Test Item Value Reference Range Interpretation Comments SARS-CoV-2 (COVID-19) RNA Not detected Not-Detected [Presence] in Respiratory specimen by GUSTAVO with probe detection (test code = 84643-3) SARS-CoV-2 (COVID-19) RNA [Presence] in Respiratory specimen by GUSTAVO with probe xzqooilkk3864-76-82 19:03:37 Test Item Value Reference Range Interpretation Comments SARS-CoV-2 (COVID-19) RNA Not detected Not-Detected [Presence] in Respiratory specimen by GUSTAVO with probe detection (test code = 76998-5) SARS-CoV-2 (COVID-19) RNA [Presence] in Respiratory specimen by GUSTAVO with probe vplkjvmdi9558-06-45 05:36:17 Test Item Value Reference Range Interpretation Comments SARS-CoV-2 (COVID-19) RNA Not detected Not-Detected [Presence] in Respiratory specimen by GUSTAVO with probe detection (test code = 49826-7) SARS-CoV-2 (COVID-19) IgG+IgM Ab [Presence] in Serum or Plasma by Immunoassay 2020-08-13 09:52:00 Test Item Value Reference Range Interpretation Comments SARS-CoV-2 (COVID-19) IgG+IgM Ab Not detected [Presence] in Serum or Plasma by Immunoassay (test code = 16235-1) SARS-CoV-2 (COVID-19) RNA [Presence] in Respiratory specimen by GUSTAVO with probe xlghntnoz0687-51-29 04:46:40 Test Item Value Reference Range Interpretation Comments SARS-CoV-2 (COVID-19) RNA [Presence] Detected Not-Detected in Respiratory specimen by GUSTAVO with probe detection (test code = 58677-5) SARS-CoV-2 (COVID-19) RNA [Presence] in Respiratory specimen by GUSTAVO with probe oszvvazge4606-75-21 00:55:48 Test Item Value Reference Range Interpretation Comments SARS-CoV-2 (COVID-19) RNA Not detected Not-Detected [Presence] in Respiratory specimen by GUSTAVO with probe detection (test code = 97600-6) SARS-CoV-2 (COVID-19) RNA [Presence] in Respiratory specimen by GUSTAVO with probe awhsddedq6282-78-27 08:17:26 Test Item Value Reference Range Interpretation Comments SARS-CoV-2 (COVID-19) RNA Not detected Not-Detected [Presence] in Respiratory specimen by GUSTAVO with probe detection (test code = 24708-0) SARS-CoV-2 (COVID-19) RNA [Presence] in Respiratory specimen by GUSTAVO with probe xyzrwxqsu7219-54-70 00:04:18 Test Item Value Reference Range Interpretation Comments SARS-CoV-2 (COVID-19) RNA Not detected Not-Detected [Presence] in Respiratory specimen by GUSTAVO with probe detection (test code = 95257-4) SARS-CoV-2 (COVID-19) RNA [Presence] in Respiratory specimen by GUSTAVO with probe fpnqvzltq4701-36-03 04:41:17 Test Item Value Reference Range Interpretation Comments SARS-CoV-2 (COVID-19) RNA Not detected Not-Detected [Presence] in Respiratory specimen by GUSTAVO with probe detection (test code = 51757-5) SARS-CoV-2 (COVID-19) RNA [Presence] in Respiratory specimen by GUSTAVO with probe ggfzzlqfr3898-93-86 04:13:39 Test Item Value Reference Range Interpretation Comments SARS-CoV-2 (COVID-19) RNA Not detected Not-Detected [Presence] in Respiratory specimen by GUSTAVO with probe detection (test code = 80488-4)
--- NOTE | 2022-03-25 21:17 | RAD REPORT ---
EXAM DESCRIPTION: CT - Ct Stroke Brain Wo Cont - 03/25/2022 9:10 pm CLINICAL HISTORY: Neuro deficit, acute, stroke suspected Headache, drowsiness, CVA symptomology COMPARISON: Head Brain Wo Cont dated 12/25/2021; Head Brain Wo Cont dated 12/04/2021 TECHNIQUE: All CT scans are performed using dose optimization technique as appropriate and may inclu de automated exposure control or mA/KV adjustment according to patient size. FINDINGS: No intracranial hemorrhage, hydrocephalus or extra-axial fluid collection.No areas of brai n edema or evidence of midline shift. The paranasal sinuses and mastoids are clear. The calvarium is intact. IMPRESSION: No acute intracranial abnormality. The findings were discussed with Ela Gonzalez in the ER on 03/25/2022 at 9:13 p.m. by telephone.
--- NOTE | 2022-03-25 22:04 | RAD REPORT ---
EXAM DESCRIPTION: RAD - Chest Single View - 03/25/2022 9:50 pm CLINICAL HISTORY: stroke Chest pain. COMPARISON: Chest Single View dated 02/11/2022; Chest Pa And Lat (2 Views) dated 01/23/2022; Chest Sing le View dated 10/11/2021; Chest Single View dated 09/01/2021 FINDINGS: Portable technique limits examination quality. The lungs are grossly clear. The heart is normal in size. No displaced fractures. IMPRESSION: No acute intrathoracic process suspected.
[2022-03-25 22:23] LABS: SARS-CoV-2 Antigen Rapid Res Negative (Negative)
[2022-03-25] MEDS ORDERED: NA CHLORIDE 0.9% 250 ML ONE (22:31)
[2022-03-25] MEDS ORDERED: D5 0.9 NS 1,000 ML IV ONE (22:31)
[2022-03-25] MEDS ORDERED: PANTOPRAZOLE 40 MG INJ ONE (22:31)
[2022-03-25 22:45] LABS: Absolute Lymphocytes (CBC) 1.4 K/uL (0.7-4.9); Hematocrit 30.3 % (36.0-45.0); Lymphocytes % 20.2 % (15.3-44.8); MCV 96.8 fL (80-100); MPV 8.6 fL (7.6-11.3); RBC Red Blood Cell Count 3.13 M/uL (3.86-4.86)
[2022-03-25 22:51] LABS: Troponin High Sensitivity 4.9 pg/mL (<58.9)
[2022-03-25 23:26] LABS: Protime INR 1.59
[2022-03-26 00:21] LABS: Urine Blood Negative (Negative); Urine Glucose 1+ (Negative); Urine Protein Negative (Negative); Urine Specific Gravity 1.015 (1.005-1.030); Urine pH 6.5 (5.0-7.0)
[2022-03-26] MEDS ORDERED: METRONIDAZOLE 500mg IVPB 500 MG/100 ML BAG IV ONE (00:21)
[2022-03-26] MEDS ORDERED: NA CHLORIDE 0.9% 0 ML ONE (00:21)
[2022-03-26 01:41] LABS: Urine Bacteria >50 /HPF (<20); Urine RBC <5 /HPF (None Seen)
--- NOTE | 2022-03-26 02:42 | ER ---
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 Pt reports hx of hemorrhoids requiring blood transfusions 2 months ago. BGL in triage 68. Coronavirus screen: Vaccine status: Patient reports receiving the 2nd dose of the covid vaccine. Client denies travel out of the [place] in the last 14 days. At this time, the client does not indicate any symptoms associated with coronavirus-19. Ebola Screen: Patient negative for fever greater than or equal to 101.5 degrees Fahrenheit, and additional compatible Ebola Virus Disease symptoms Patient denies exposure to infectious person. Patient denies travel to an Ebola-affected area in the 21 days before illness onset. An acute neurological deficit is present. The charge nurse has been notified. Initial Sepsis Screen: Does the patient meet any 2 criteria? No. Patient's initial sepsis screen is negative. Does the patient have a suspected source of infection? No. Patient's initial sepsis screen is negative. Risk Assessment: Do you want to hurt yourself or someone else? Patient reports no desire to harm self or others. Onset of symptoms was March 25, 2022 at 19:30. 20:45 Method Of Arrival: Wheelchair kb3 20:45 Acuity: OLEG 2 kb3 20:51 Pre-hospital glucose is not applicable to this patient. kb3 Triage Assessment: 20:51 The onset of the patients symptoms was less than three hours ago. General: Appears in kb3 no apparent distress. Behavior is calm, cooperative. Pain: Denies pain. Neuro: Level of Consciousness is awake, alert, Oriented to person, place, time, situation, Reports blurred vision dizziness, headache frontal area, a syncopal episode weakness generalized. 20:51 The onset of the patients symptoms was March 25, 2022 at 19:00. kb3 Stroke Activation: Symptom onset < 3 hours Physician: Stroke Attending; Name: ; Notified At: ; Arrived At: Physician: Chief Stroke Resident; Name: ; Notified At: ; Arrived At: Physician: Stroke Resident; Name: ; Notified At: ; Arrived At: Physician: ED Attending; Name: ; Notified At: ; Arrived At: Physician: ED Resident; Name: ; Notified At: ; Arrived At: Historical: - Allergies: 20:51 ceftriaxone; kb3 20:51 Ciprofloxacin; kb3 20:51 Iodine; kb3 20:51 LACTASE; kb3 20:51 Promethazine; kb3 - Home Meds: 20:51 aripiprazole 10 mg Oral tab 1 tab once daily [Active]; furosemide 20 mg Oral tab 1 tab kb3 2 times per day [Active]; lorazepam 0.5 mg Oral tab [Active]; midodrine 5 mg Oral tab [Active]; rifaximin 550 mg Oral tab [Active]; spironolactone 50 mg Oral tab [Active]; - PMHx: 20:51 Cirrhosis of liver; Crohn's disease; Kidney disease; kb3 - Immunization history:: Adult Immunizations up to date, Client reports receiving the 2nd dose of the Covid vaccine, Last tetanus immunization: up to date. - Social history:: Smoking status: Patient denies any tobacco usage or history of. Patient/guardian denies using alcohol, street drugs. Screenin:44 Abuse screen: Denies threats or abuse. Denies injuries from another. Nutritional as6 screening: No deficits noted. Tuberculosis screening: No symptoms or risk factors identified. Fall Risk None identified. Assessment: 20:55 VAN Scoring: Arm Drift: Patients demonstrates NO arm weakness. Patient is VAN Negative. as6 The patient has not been NPO before screening. The patient is currently on the following diet: regular The patient is alert, and able to follow commands. The patient does not exhibit slurred or garbled speech. The patient is not exhibiting difficulty speaking. The patient does not exhibit difficulty understanding words. The patient is able to swallow own secretions with no drooling or need for suction. Patient tolerated one teaspoon of water. No drooling, immediate coughing, gurgling, or clearing of the throat was noted. The patient tolerated 90mL of water. No drooling, immediate coughing, gurgling, or clearing of the throat was noted. The patient passed the bedside swallow screening. Oral medications may be given as ordered. Contact Physician for further diet orders. Provider notified of bedside swallow screening results: Ashok Romano MD. TNKase (Tenecteplase) Screening: Contraindications: Gastrointestinal or urinary tract hemorrhage within the previous 21 days:. General: Appears in no apparent distress. Behavior is calm, cooperative. Pain: Complains of pain in left lower quadrant. Neuro: Level of Consciousness is awake, alert, Reports weakness. Respiratory: Respiratory effort is even, unlabored. GI: Reports lower abdominal pain, diarrhea, rectal bleeding. 21:47 General: 2 missed IV attempts . as6 03/26 00:49 Reassessment: c/o shoulder pain at 8, notified DR Romano.. aa9 Vital Signs: 03/25 20:45 BP 117 / 63; Pulse 84; Resp 20; Temp 97.6; Pulse Ox 100% ; Weight 68.04 kg; Height 4 kb3 ft. 11 in. (149.86 cm); Pain 8/10; 22:05 BP 110 / 64; Pulse 80; Resp 17; Pulse Ox 100% ; aa9 23:44 BP 110 / 53; Pulse 92; Resp 20 S; Pulse Ox 100% on R/A; as6 20:45 Body Mass Index 30.30 (68.04 kg, 149.86 cm) kb3 NIH Stroke Scale Scores: 20:55 NIHSS Score: 0 as6 21:15 NIHSS Score: 0 7 ED Course: 20:17 Patient arrived in ED. rg4 20:51 Triage completed. kb3 20:51 Arm band placed on right wrist. Patient placed in an exam room. kb3 20:59 Toni Loza, AMARILIS is Primary Nurse. as6 21:12 CT Stroke Brain w/o Contrast In Process Unspecified. EDMS 21:13 Ashok Romano MD is Attending Physician. mh7 21:52 Stroke CXR 1 View In Process Unspecified. EDMS 22:15 Initial lab(s) drawn, by me, sent to lab. T\T\S collected, blood band applied to patient. bb Accessed peripheral vein via ultrasound, utilizing dynamic ultrasound technique Powerglide midline 18g 10 cm to right upper arm using hospital protocol with good blood return and flushes easily pt tolerated well. 22:22 SARS RAPID Sent. as6 23:24 CT Abd/Pelvis - Without Contrast In Process Unspecified. EDMS 23:44 Bed in low position. Call light in reach. Side rails up X2. Client placed on continuous as6 cardiac and pulse oximetry monitoring. NIBP monitoring applied. Warm blanket given. 03/26 00:46 Urine Microscopic Only Sent. aa 00:46 Urine Culture Sent. aa9 02:40 Tom Rosas MD is Referral Physician. [facility] 03:05 No provider procedures requiring assistance completed. IV discontinued, intact, aa9 bleeding controlled, No redness/swelling at site. Pressure dressing applied. Administered Medications: 03/25 22:52 Drug: ProTONIX (pantoprazole) 80 mg Route: IVP; Site: right upper arm; as6 03/26 03:04 Follow up: Response: No adverse reaction aa9 03/25 22:52 Drug: ProTONIX (pantoprazole) 8 mg/hr Route: IV; Rate: 25 ml/hr; Site: right upper arm; as6 22:52 Drug: D5-NS 1000 ml Route: IV; Rate: bolus; Site: right upper arm; as6 03/26 00:23 Drug: Flagyl (metroNIDAZOLE) 500 mg Volume: 100 ml; Route: IVPB; Rate: 200 ml/hr; as6 Infused Over: 30 mins; Site: right upper arm; Medication: 03:06 VIS not applicable for this client. aa9 Point of Care Testing: Blood Glucose: 03/25 20:51 Blood Glucose: 68 mg/dL; kb3 Ranges: Outcome: 03/26 03:05 Discharged to home via wheelchair. aa9 Condition: stable Discharge instructions given to patient, significant other, Instructed on discharge instructions, follow up and referral plans. medication usage, Demonstrated understanding of instructions, follow-up care, medications, Prescriptions given X 3. 03:06 Patient left the ED. aa9 NIH Stroke Scale - NIH Stroke Score Date: 03/25/2022 Time: 20:55 Total Score = 0 1a. Level of Consciousness (LOC) - 0(Alert) 1b. Level of Consciousness (LOC) (Month \T\ Age) - 0(Both) 1c. LOC Commands (Open \T\ Closes Eyes/Supervisor Cutting And Boning) - 0(Both) 2. Best Gaze (Lateral Gaze Paresis) - 0(Normal) 3. Visual Field Loss - 0(No visual loss) 4. Facial Palsy - 0(Normal) 5a. Left Arm: Motor (10-second hold) - 0(No drift) 5b. Right Arm: Motor (10-second hold) - 0(No drift) 6a. Left Leg: Motor (5-second hold - always test supine) - 0(No drift) 6b. Right Leg: Motor (5-second hold - always test supine) - 0(No drift) 7. Limb Ataxia (finger/nose \T\ heel/macias - test with eyes open) - 0(Absent) 8. Sensory Loss (pinprick arms/legs/face) - 0(Normal) 9. Best Language: Aphasia (description/naming/reading) - 0(No aphasia) 10. Dysarthria (speech clarity - read or repeat words) - 0(Normal) 11. Extinction and Inattention (visual/tactile/auditory/spatial/personal) - 0(No abnormality) Initials: as6 NIH Stroke Scale - NIH Stroke Score Date: 03/25/2022 Time: 21:15 Total Score = 0 1a. Level of Consciousness (LOC) - 0(Alert) 1b. Level of Consciousness (LOC) (Month \T\ Age) - 0(Both) 1c. LOC Commands (Open \T\ Closes Eyes/Supervisor Cutting And Boning) - 0(Both) 2. Best Gaze (Lateral Gaze Paresis) - 0(Normal) 3. Visual Field Loss - 0(No visual loss) 4. Facial Palsy - 0(Normal) 5a. Left Arm: Motor (10-second hold) - 0(No drift) 5b. Right Arm: Motor (10-second hold) - 0(No drift) 6a. Left Leg: Motor (5-second hold - always test supine) - 0(No drift) 6b. Right Leg: Motor (5-second hold - always test supine) - 0(No drift) 7. Limb Ataxia (finger/nose \T\ heel/macias - test with eyes open) - 0(Absent) 8. Sensory Loss (pinprick arms/legs/face) - 0(Normal) 9. Best Language: Aphasia (description/naming/reading) - 0(No aphasia) 10. Dysarthria (speech clarity - read or repeat words) - 0(Normal) 11. 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 Pt reports hx of hemorrhoids requiring blood transfusions 2 months ago. kb3
--- NOTE | 2022-03-26 02:43 | EDPHYS ---
Physician Documentation [facility] Name: Bella Barron Age: 61 yrs Sex: Female : 1960 Arrival Date: 03/25/2022 Time: 20:17 Bed 2 Private MD: ED Physician Ashok Romano HPI: 03/25 21:15 This 61 yrs old Female presents to ER via Wheelchair with complaints of Weakness, mh7 Slurred Speech. 21:15 The patient presents to the emergency department with rectal bleeding, a moderate mh7 amount, bright red blood with bowel movement, with multiple such episodes. Onset: The symptoms/episode began/occurred this morning, today. Abdominal pain: described as intermittent, vague,\E\ waxing and waning, located in the left lower quadrant, that does not radiate. Modifying factors: The symptoms are alleviated by nothing, the symptoms are aggravated by nothing. 21:15 Associated signs and symptoms: Pertinent positives: diarrhea, generalized weakness, mh7 Pertinent negatives: anorexia, chest pain, constipation, dizziness at rest, dizziness when standing, fever, shortness of breath, syncope, near-syncope, vomiting. Severity of symptoms: At their worst the symptoms were moderate today, in the emergency department the symptoms have improved moderately. It was reported that patient had slurred speech this evening. Patient states that is typical for her since having a stroke in the past.. Historical: - Allergies: 20:51 ceftriaxone; kb3 20:51 Ciprofloxacin; kb3 20:51 Iodine; kb3 20:51 LACTASE; kb3 20:51 Promethazine; kb3 - Home Meds: 20:51 aripiprazole 10 mg Oral tab 1 tab once daily [Active]; furosemide 20 mg Oral tab 1 tab kb3 2 times per day [Active]; lorazepam 0.5 mg Oral tab [Active]; midodrine 5 mg Oral tab [Active]; rifaximin 550 mg Oral tab [Active]; spironolactone 50 mg Oral tab [Active]; - PMHx: 20:51 Cirrhosis of liver; Crohn's disease; Kidney disease; kb3 - Immunization history:: Adult Immunizations up to date, Client reports receiving the 2nd dose of the Covid vaccine, Last tetanus immunization: up to date. - Social history:: Smoking status: Patient denies any tobacco usage or history of. Patient/guardian denies using alcohol, street drugs. ROS: 21:15 Constitutional: Negative for fever, chills, and weight loss, Eyes: Negative for injury, mh7 pain, redness, and discharge, ENT: Negative for injury, pain, and discharge, Neck: Negative for injury, pain, and swelling, Cardiovascular: Negative for chest pain, palpitations, and edema, Respiratory: Negative for shortness of breath, cough, wheezing, and pleuritic chest pain, Back: Negative for injury and pain, : Negative for injury, bleeding, discharge, and swelling, MS/Extremity: Negative for injury and deformity, Skin: Negative for injury, rash, and discoloration, Psych: Negative for depression, anxiety, suicide ideation, homicidal ideation, and hallucinations, Allergy/Immunology: Negative for hives, rash, and allergies, Endocrine: Negative for neck swelling, polydipsia, polyuria, polyphagia, and marked weight changes. Exam: 21:15 Head/Face: Normocephalic, atraumatic. Eyes: Pupils equal round and reactive to light, mh7 extra-ocular motions intact. Lids and lashes normal. Conjunctiva and sclera are non-icteric and not injected. Cornea within normal limits. Periorbital areas with no swelling, redness, or edema. Neck: Trachea midline, no thyromegaly or masses palpated, and no cervical lymphadenopathy. Supple, full range of motion without nuchal rigidity, or vertebral point tenderness. No Meningismus. Chest/axilla: Normal chest wall appearance and motion. Nontender with no deformity. No lesions are appreciated. Cardiovascular: Regular rate and rhythm with a normal S1 and S2. No gallops, murmurs, or rubs. Normal PMI, no JVD. No pulse deficits. Respiratory: Lungs have equal breath sounds bilaterally, clear to auscultation and percussion. No rales, rhonchi or wheezes noted. No increased work of breathing, no retractions or nasal flaring. 21:15 Back: No spinal tenderness. No costovertebral tenderness. Full range of motion. Skin: Warm, dry with normal turgor. Normal color with no rashes, no lesions, and no evidence of cellulitis. MS/ Extremity: Pulses equal, no cyanosis. Neurovascular intact. Full, normal range of motion. Psych: Awake, alert, with orientation to person, place and time. Behavior, mood, and affect are within normal limits. 21:15 Constitutional: The patient appears in no acute distress, alert, awake, uncomfortable. 21:15 Abdomen/GI: Inspection: obese Bowel sounds: normal, in all quadrants, Palpation: moderate abdominal tenderness, in the left lower quadrant, mass, is not appreciated, rebound tenderness, is not appreciated, voluntary guarding, is not appreciated, involuntary guarding, is not appreciated, no appreciated organomegaly, Rectal exam: rectal tone normal, Stool: brown, guaiac positive, hemorrhoid(s), are not appreciated, mass, is not appreciated, swelling, is not appreciated, tenderness, is not appreciated, fecal impaction, is not appreciated, the exam is chaperoned by the nurse, Indicators: McBurney's point is not tender, Mi's sign is negative, Rovsing's sign is negative, Obturator sign is negative, Psoas sign is negative, Liver: no appreciated palpable abnormalities, Hernia: not appreciated. 21:15 Neuro: Orientation: is normal, Mentation: is normal, Memory: is normal, Cranial nerves: mh7 grossly normal, Cerebellar function: is grossly normal, Motor: is normal, Sensation: is normal, Gait: not tested. seizure activity, is not displayed by the patient, Abnormal movements: there are no abnormal movements. Vital Signs: 20:45 BP 117 / 63; Pulse 84; Resp 20; Temp 97.6; Pulse Ox 100% ; Weight 68.04 kg; Height 4 kb3 ft. 11 in. (149.86 cm); Pain 8/10; 22:05 BP 110 / 64; Pulse 80; Resp 17; Pulse Ox 100% ; aa9 23:44 BP 110 / 53; Pulse 92; Resp 20 S; Pulse Ox 100% on R/A; as6 20:45 Body Mass Index 30.30 (68.04 kg, 149.86 cm) kb3 NIH Stroke Scale Scores: 20:55 NIHSS Score: 0 as6 21:15 NIHSS Score: 0 mh7 MDM: 03/26 02:30 Differential diagnosis: gastritis, diverticulitis, colitis. Data reviewed: vital signs, [facility] nurses notes, lab test result(s), CBC, electrolytes, hepatic panel, urinalysis, EKG, radiologic studies, CT scan, plain films. Data interpreted: Pulse oximetry: on room air is 100 %. Interpretation: normal. Counseling: I had a detailed discussion with the patient and/or guardian regarding: the historical points, exam findings, and any diagnostic results supporting the discharge/admit diagnosis, lab results, radiology results, the need to transfer to another facility, [facility] does not immediately have the required specialist. Response to treatment: the patient's symptoms have markedly improved after treatment. 02:35 Refusal of service: The patient/guardian displays adequate decision making capability [facility] and despite a detailed discussion of alternatives, benefits, risks, and consequences refuses: Admission to the hospital for further work-up and treatment, Transfer. ED course: Feels better, NAD, VSS, no focal neurological deficits. Discussed test results and findings and need to transfer due to no GI specialist here. Patient requested to transfer to [facility] since her doctors are there. [facility] declined transfer due to no capacity. Patient then agreed to [facility] for transfer but then changed her mind and wants to leave against medical advice. Explained the possibility of permanent disability and/or if symptoms worsen. She verbalized that she understood this information as presented.. 02:41 Patient medically screened. 03/25 21:00 Order name: Basic Metabolic Panel; Complete Time: 23:06 03/25 21:00 Order name: CBC with Diff; Complete Time: 23:03/25 21:00 Order name: Protime (+inr); Complete Time: 23:35 03/25 21:00 Order name: Ptt, Activated; Complete Time: 23:35 03/25 21:08 Order name: Glucose, Ancillary Testing; Complete Time: 21:25 [facility] 03/25 21:24 Order name: Type And Screen; Complete Time: 01:36 03/25 21:00 Order name: CT Stroke Brain w/o Contrast; Complete Time: 21:25 03/25 21:24 Order name: Troponin High Sensitivity; Complete Time: 23:06 03/25 21:24 Order name: SARS RAPID; Complete Time: 23:06 03/25 21:26 Order name: Lipase; Complete Time: 23: 03/25 23:39 Order name: AMMONIA; Complete Time: 01:36 mh03/26 00:22 Order name: Urine Dipstick-Ancillary; Complete Time: 00:24 [facility] 03/26 00:25 Order name: Urine Microscopic Only; Complete Time: 02:05 [facility] 03/26 00:25 Order name: Urine Culture [facility] 03/25 21:00 Order name: Stroke CXR 1 View; Complete Time: 23:06 [facility] 03/25 21:00 Order name: EKG; Complete Time: 21:00 [facility] 03/25 21:00 Order name: Accucheck; Complete Time: 21:47 [facility] 03/25 21:00 Order name: Cardiac monitoring; Complete Time: 21:47 [facility] 03/25 21:00 Order name: EKG - Nurse/Tech; Complete Time: 21:47 [facility] 03/25 21:00 Order name: IV Saline Lock; Complete Time: 22:35 [facility] 03/25 21:00 Order name: Labs collected and sent; Complete Time: 22:35 [facility] 03/25 21:00 Order name: NPO; Complete Time: 21:47 [facility] 03/25 21:00 Order name: O2 Per Protocol; Complete Time: 21:47 [facility] 03/25 21:00 Order name: O2 Sat Monitoring; Complete Time: 21:47 [facility] 03/25 21:00 Order name: Stroke Swallow Screen; Complete Time: 21:47 [facility] 03/25 21:30 Order name: CT Abd/Pelvis - Without Contrast [facility] 03/25 21:25 Order name: Urine Dipstick-Ancillary (obtain specimen); Complete Time: 00:22 [facility] Administered Medications: 03/25 22:52 Drug: ProTONIX (pantoprazole) 80 mg Route: IVP; Site: right upper arm; 03/26 03:04 Follow up: Response: No adverse reaction aa9 03/25 22:52 Drug: ProTONIX (pantoprazole) 8 mg/hr Route: IV; Rate: 25 ml/hr; Site: right upper arm; 22:52 Drug: D5-NS 1000 ml Route: IV; Rate: bolus; Site: right upper arm; 03/26 00:23 Drug: Flagyl (metroNIDAZOLE) 500 mg Volume: 100 ml; Route: IVPB; Rate: 200 ml/hr; as6 Infused Over: 30 mins; Site: right upper arm; Point of Care Testing: Blood Glucose: 03/25 20:51 Blood Glucose: 68 mg/dL; kb3 Ranges: Critical Glucose Levels:Adult <50 mg/dl or >400 mg/dl <40 mg/dl or >180 mg/dl Disposition Summary: 03/26/22 02:41 Left Against Medical Advice Location: Home [facility] Problem: an acute exacerbation [facility] Symptoms: have improved [facility] Condition: Stable [facility] Diagnosis - Colitis 7 - Lower GI bleeding [facility] Followup: [facility] - With: Private Physician - When: 1 - 2 days - Reason: Worsening of condition, Recheck today's complaints, Continuance of care, Re-evaluation by your physician Followup: [facility] - With: Tom Rosas MD - When: 1 - 2 days - Reason: Worsening of condition, Recheck today's complaints Discharge Instructions: - Colitis 7 - Lower Gastrointestinal Bleeding [facility] - Discharge Summary Sheet wm Forms: - SBAR form wm Prescriptions: - Flagyl 500 mg Oral Tablet - take 1 tablet by ORAL route every 6 hours for 10 days; 40 tablet; Refills: 0, [facility] Product Selection Permitted - Protonix 40 mg Oral Tablet - take 1 tablet by ORAL route once daily; 30 tablet; Refills: 0, Product [facility] Selection Permitted - Bactrim DS 800-160 mg Oral Tablet - take 1 tablet by ORAL route every 12 hours for 10 days; 20 tablet; Refills: 0, [facility] Product Selection Permitted NIH Stroke Scale - NIH Stroke Score Date: 03/25/2022 Time: 20:55 Total Score = 0 1a. Level of Consciousness (LOC) - 0(Alert) 1b. Level of Consciousness (LOC) (Month \T\ Age) - 0(Both) 1c. LOC Commands (Open \T\ Closes Eyes/Eyeglass Lens Cutter) - 0(Both) 2. Best Gaze (Lateral Gaze Paresis) - 0(Normal) 3. Visual Field Loss - 0(No visual loss) 4. Facial Palsy - 0(Normal) 5a. Left Arm: Motor (10-second hold) - 0(No drift) 5b. Right Arm: Motor (10-second hold) - 0(No drift) 6a. Left Leg: Motor (5-second hold - always test supine) - 0(No drift) 6b. Right Leg: Motor (5-second hold - always test supine) - 0(No drift) 7. Limb Ataxia (finger/nose \T\ heel/macias - test with eyes open) - 0(Absent) 8. Sensory Loss (pinprick arms/legs/face) - 0(Normal) 9. Best Language: Aphasia (description/naming/reading) - 0(No aphasia) 10. Dysarthria (speech clarity - read or repeat words) - 0(Normal) 11. Extinction and Inattention (visual/tactile/auditory/spatial/personal) - 0(No abnormality) Initials: as6 NIH Stroke Scale - NIH Stroke Score Date: 03/25/2022 Time: 21:15 Total Score = 0 1a. Level of Consciousness (LOC) - 0(Alert) 1b. Level of Consciousness (LOC) (Month \T\ Age) - 0(Both) 1c. LOC Commands (Open \T\ Closes Eyes/Eyeglass Lens Cutter) - 0(Both) 2. Best Gaze (Lateral Gaze Paresis) - 0(Normal) 3. Visual Field Loss - 0(No visual loss) 4. Facial Palsy - 0(Normal) 5a. Left Arm: Motor (10-second hold) - 0(No drift) 5b. Right Arm: Motor (10-second hold) - 0(No drift) 6a. Left Leg: Motor (5-second hold - always test supine) - 0(No drift) 6b. Right Leg: Motor (5-second hold - always test supine) - 0(No drift) 7. Limb Ataxia (finger/nose \T\ heel/macias - test with eyes open) - 0(Absent) 8. Sensory Loss (pinprick arms/legs/face) - 0(Normal) 9. Best Language: Aphasia (description/naming/reading) - 0(No aphasia) 10. Dysarthria (speech clarity - read or repeat words) - 0(Normal) 11. Extinction and Inattention (visual/tactile/auditory/spatial/personal) - 0(No abnormality) Initials: mh7 Signatures: Dispatcher [employer] Ashok Del Rio MD MD mh7 Toni Loza RN RN as6 Penny Capps RN RN kb3 Tiffani Miller RN aa9 Corrections: (The following items were deleted from the chart) 21:35 21:31 This 61 yrs old Female presents to ER via Wheelchair with complaints of mh7 Weakness, Slurred Speech. mh7 21:40 21:15 It was reported that patient had slurred speech. 7 7
[2022-03-26 05:35] VITALS: TEMP 97.6; O2SAT 100
[2022-03-26 05:43] VITALS: BP 110/53
--- NOTE | 2022-03-26 10:30 | RAD REPORT ---
EXAM DESCRIPTION: Abdomen Pelvis Wo Contrast CLINICAL HISTORY: 61 years Female Lower GI bleed COMPARISON: March 14, 2022 TECHNIQUE: Images were obtained in axial, sagittal, and coronal planes. No intravenous contrast was administered. This exam was performed according to our departmental dose-optimization program which includes use of Automated Exposure Control, adjustment of the mA and/or kV according to patient size and/or use of iterative reconstruction technique. FINDINGS: Findings consistent with prior TIPS procedure. No focal hepatic abnormality. Prior cholecy stectomy. Spleen is prominent in size measuring 12.6 cm in anterior posterior dimension. Unremarkable pancreas and adrenal glands bilaterally. Punctate nonobstructing calcifications kidneys bilaterally. No hydronephrosis bilaterally. No obstruc ting renal or ureteral calculi bilaterally. Left renal cyst. Unremarkable bladder. Cystic appearance right ovary more pronounced when correlated with the prior study. Prior right hemicolectomy. Bowel anastomosis right lower abdomen. Associated marked constipation. Mil dly distended small bowel loops upper abdomen. No perforation. Mucosal thickening rectosigmoid colon and rectum consistent with colitis and proctitis. No acute osseous abnormality. No dilatation of abdominal aorta. No adenopathy or abnormal fluid collections seen. Postsurgical wong ges anterior abdominal wall. No abnormality lower lungs bilaterally. IMPRESSION: Findings consistent with colitis and proctitis rectosigmoid colon and rectum. Bowel anas tomosis right colon with marked constipation and proximal small bowel distention. Developing bowel obstruction should be considered. Increasing cystic appearance right ovary. Pelvic ultrasound correlation suggested. Electronically signed by: Shobha Staton MD 03/25/2022 11:53 PM CDT Due to temporary technical issues with the PACS/Fluency reporting system, reports are being signed by the in house radiologists without review as a courtesy to insure prompt reporting. The interpreting radiologist is fully responsible for the content of the report.
--- NOTE | 2022-03-27 08:17 | EKG ---
Test Date: 2022-03-25 Test Time: 21:22:05 Oncology Account Specialist: MEASUREMENT RESULTS: Intervals: Rate: 83 HI: 164 QRSD: 90 QT: 422 QTc: 495 [place]: P: 60 HI: 164 QRS: 15 T: 35 INTERPRETIVE STATEMENTS: Normal sinus rhythm Prolonged QT Abnormal ECG Compared to ECG 02/11/2022 20:40:46 Myocardial infarct finding no longer present Electronically Signed On 03-27-22 08:11:39 CDT by Nico Caldwell
== END 2022-03-26 03:06 | disposition left against medical advice (07) ==
LOC: ER 20:15
DX: K52.9 Noninfective gastroenteritis and colitis, unspecified (principal); K74.60 Unspecified cirrhosis of liver; N19 Unspecified kidney failure; Z88.1 Allergy status to other antibiotic agents; Z88.8 Allergy status to other drugs, medicaments and biological substances; Z91.048 Other nonmedicinal substance allergy status; Z20.822 Contact with and (suspected) exposure to COVID-19
CPT/HCPCS: 93005; 87088; 85025; 87086; 80048; 36415; 82140; 86900; 86850; 85610; 86901; 82947; 85730; 84484; 83690; 74176; 70450; 71045; 87811; C9113; J7042; J7050; 81003; 81015; 87077; 87186; 96374; 96375; 99284

== ENCOUNTER 2022-06-28 02:30 | Emergency (ER) | payer OTHER ==
--- OUTSIDE RECORDS SUMMARY | 2022-06-28 02:46 | XMS REPORT | Continuity of Care Document ---
:1960 Author Organization [facility] t Address [address] [place] [address] Dr. [address]. [address] [place] [address] Care Team Providers Name Role Phone CALOS EDWARDS Primary Care Physician Unavailable Fernando Man Attending Clinician Unavailable BAYLEE GIRARD Attending Clinician Unavailable HERIBERTO YORK Attending Clinician Unavailable MD FABIAN AZEVEDO Attending Clinician Unavailable MD JENNIFER GHOSH Attending Clinician Unavailable MD EBONY AVILEZ Attending Clinician Unavailable MD PIERCE MARSHALL Attending Clinician Unavailable MD AYDE WESTFALL Attending Clinician Unavailable SALLY AGUDELO Attending Clinician Unavailable Doctor Unassigned, [place] Attending Clinician Unavailable Victoriano Membreno Attending Clinician Unavailable Mercy Tamez MD Attending Clinician CALOS EDWARDS Attending Clinician Unavailable Libby Levy PA-C Attending Clinician LIBBY LEVY Attending Clinician Unavailable Michael FRANKLIN, Kendy Dalal Attending Clinician [phone] Lacey Pan MD Attending Clinician Zara Mason MD Attending Clinician [phone] Vj FRANKLIN, Shiela Man Attending Clinician Selma Lu MD Attending Clinician Kyle FRANKLIN, Nia Delaney Attending Clinician KENDY HALL Attending Clinician Unavailable LACEY PAN Attending Clinician Unavailable Jn Cleveland RN Attending Clinician Unavailable MOISES DORADO Attending Clinician Unavailable Sawyer Huitron MD Attending Clinician Kirit Jaimes LCSW Attending Clinician Unavailable Segro Lee RN Attending Clinician Unavailable MD JENNIFER GHOSH Attending Clinician Unavailable MD MOISES DORADO Attending Clinician Unavail able Erika Brown MA Attending Clinician Unavailable DO ROMERO LIMON Attending Clinician Unavailable ROMERO LIMON Attending Clinician Unavailable John Murillo, Kaleb Turner Attending Clinician Unavailable Eusebia Williamson MA Attending Clinician Unavailable MD BAYLEE GIRARD Attending Clinician Unavail able Bia Tee RN Attending Clinician Unavailable Wild Kovacs DO Attending Clinician [phone] Cliff Levy MD Attending Clinician MD CALOS EDWARDS Attending Clinician Unavailable Freedom Gutierrez DO Attending Clinician Robby Perez MD Attending Clinician [phone] MD HERIBERTO YORK Attending Clinician Unavailable MD PIERCE MARSHALL Attending Clinician Unavailable NOBLE ALMEIDA Attending Clinician Unavailable YIFAN CUMMINS Attending Clinician Unavailable MERCY RUEDA Attending Clinician Unavailable MD HERMILO CHAMPION Attending Clinician Unavailable JUNO DIAL Attending Clinician Unavailable DO MERCY RUEDA Attending Clinician Unavailable EBONY ROPER Attending Clinician Unavailable RA RHODES Attending Clinician Unavailable Lita Fuchs Attending Clinician LITA CORRIGAN Attending Clinician Unavailable YOVANY TAVERAS Attending Clinician Unavailable Anabell Ma RN Attending Clinician Akanksha Jensen MD Attending Clinician Indra Motta MD Attending Clinician Lizy Taylor MD Attending Clinician MARTELL CHAKRABORTY Attending Clinician Unavailable HERIBERTO YORK Admitting Clinician Unavailable PIERCE MARSHALL Admitting Clinician Unavailable MD FABIAN AZEVEDO Admitting Clinician Unavailable MATTI LOPEZ Admitting Clinician Unavailable MD AYDE WESTFALL Admitting Clinician Unavailable NIA LAWRENCE Admitting Clinician Unavailable BAYLEE GIRARD Admitting Clinician Unavailable MD BAYLEE GIRARD Admitting Clinician Unavail able MD MOISES DORADO Admitting Clinician Unavail able DO ROMERO LIMON Admitting Clinician Unavailable JENNIFER GHOSH Admitting Clinician Unavailable MD JENNIFER GHOSH Admitting Clinician Unavailable MD CALOS EDWARDS Admitting Clinician Unavailable MD HERIBERTO YORK Admitting Clinician Unavailable ANGIE MAN Admitting Clinician Unavailable MD ANGIE MAN Admitting Clinician Unavailable HERMILO CHAMPION Admitting Clinician Unavailable MD HERMILO CHAMPION Admitting Clinician Unavailable MERCY RUEDA Admitting Clinician Unavailable DO MERCY RUEDA Admitting Clinician Unavailable YOVANY TAVERAS Admitting Clinician Unavailable Indra Motta MD Admitting Clinician Payers Payer Name Policy Type Policy Number Effective Date Expiration Date Faustino vasquez MEDICARE A B [id number] 2015 00:00:00 GENERIC MEDICAID [id number] 2021 O 00:00:00 MEDICARE PART A [id number] 2015 \\T\\ B 00:00:00 [place] [id number] 2018 [place] 00[place]00 [facility] [id number] [facility] MEDICARE NOVITAS [id number] 2015 Common 00:00:00 [facility] - [facility] [id number] Common [facility] MEDICARE NOVITAS MB [id number] 2015 Common 00:00:00 [facility] MEDICARE NOVITAS MB [id number] 2015 Common 00:00:00 [facility] [id number] Common [facility] MEDICARE NOVITAS MB [id number] 2015 Common 00:00:00 [facility] [id number] Common [facility] [id number] Common [facility] MEDICARE NOVITAS MB [id number] 2015 Common 00:00:00 [facility] [id number] Common [facility] MEDICARE NOVITAS MB [id number] 2015 Common 00:00:00 [facility] MEDICARE NOVITAS MB [id number] 2015 Common 00:00:00 [facility] [id number] Common [facility] MEDICARE NOVITAS MB [id number] 2015 Common 00:00:00 [facility] [id number] Common [facility] MEDICARE NOVITAS MB [id number] 2015 Common 00:00:00 [facility] [id number] [facility] [id number] 2016 HEALTHCARE 00:00:00 MEDICAID Problems Condition Condition Condition Status Onset Resolution Last Treating Co mments Source Name Details Category Date Date Treatment Clinician Date Altered Altered Disease Active [facility] mental mental 09-02 [facility] status status [facility] SBP SBP Disease Active Methodi (spontaneo (spontaneo 08-24 us 00:00: Hospita bacterial bacterial 00 l peritoniti peritoniti s) s) Debility Debility Disease Active Metho di 1-10 st 00:00: Hospita 00 l Mobility Mobility Disease Active Metho di impaired impaired 1 st 00:00: Hospita 00 l Metabolic Metabolic Disease Active Met hodi acidosis acidosis [facility] 00:00: Hospita 00 l Preoperati Preoperati Disease Active Overview : Methodi ve ve 1-[address] clearance clearance 00:00: g of this H ospita 00 note l might be different from the original. Added automatic ally from request for surgery [id number] Chronic Chronic Disease Active 2020-08 [facility] kidney kidney 0-15 st disease disease 00:00: Hospita 00 l SBP SBP Disease Active 2020-08 [facility] (spontaneo (spontaneo 013 us 00:00: Hospita bacterial bacterial 00 l peritoniti peritoniti s) s) Acute Acute Disease Active 2019-08 [facility] cystitis cystitis 003 st without without 00:00: Hospita hematuria hematuria 00 l Hyperkalem Hyperkalem Disease Active 2019-[address] [facility] ia ia 0 [address] 00:00: Hospita 00 l Lymphedema Lymphedema Disease Active M ethodi 04-13 st 00:00: Hospita 00 l Tremor of Tremor of Disease Active Met hodi unknown unknown 8 origin origin 00:00: Hospita 00 l Weakness [...] Hospita unspecifie unspecifie 00 l d d Hematochez Hematochez Disease Active U nivers ia ia 7- ity of 00:00: [place] 00 [facility] Branch Abdominal Abdominal Disease Active [...] of liver 08-20 00:00: Hospita 00 l Acute Acute Disease [...] Added automatic ally from request for surgery [id number] Persistent Persistent Disease Active M ethodi depressive depressive 10-09 st disorder disorder 00:00: Hospit a 00 l 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 2- it y of athy athy 00:00: [place] 00 [facility] Hepatic Hepatic Disease Active 2015-08 Methodi encephalop encephalop [address] athy athy 00:00: Hospita 00 l Thrombocyt Thrombocyt Disease Active M ethodi openia openia 05-04 00:00: Hospita 00 l Malnutriti Malnutriti Disease Active M ethodi on on 05-04 00:00: Hospita 00 l Right Right Disease Active Univers shoulder shoulder 4-25 ity of pain pain 00:00: [place] 00 [facility] Anxiety Anxiety Disease Active Univers and and 12-01 ity of depression [place]: [place] [facility] Rectal Rectal Disease Active 2014-08 Univers bleed bleed 2- ity of 00:00: [address] Cirrhosis Cirrhosis Disease Active [facility] Crohn Crohn Disease Active [facility] disease disease [facility] [id number] Secondary Problem Active Comm on esophageal Spirit varices - [facility] without St bleeding [facility] [id number] Portal Problem Active Common hypertensi Spirit on - [facility] [id number] S/P TIPS Problem Active Comm on (transjugu Spirit lar - [facility] intrahepat [facility] portosyste Medica l jacqueline shunt) Center [id number] MCFARLANE Problem Active Common (nonalcoho Spirit lic - [facility] steatohepa 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 Kidney Kidney Problem Active Common stone stone [facility] Thrombocyt Thrombocyt Problem Active [facility] openia openia [facility] Bipolar Bipolar Problem Active Common disorder disorder [facility] Restless Restless Problem Active Commo n legs legs Spirit syndrome syndrome - [facility] [id number] Inflammato Problem Active Com mon ry bowel Spirit disease - [facility] [id number] Incontinen Problem Active Com mon ce of Spirit feces, - [facility] unspecifie [facility] fecal [facility] incontinen Medica l ce type Center Body mass BMI Problem Active Common index 40+ 40.0-44.9, Spi rit - morbidly adult - [facility] obese [facility] Allergic Seasonal Problem Active Commo n rhinitis and Spirit perennial - [facility] allergic St rhinitis [facility] Irritable Irritable Problem Active Com mon bowel bowel Spirit syndrome syndrome - [facility] without St diarrhea [facility] [id number] Adult BMI Problem Active Com mon 35.0-35.9 Spirit kg/sq [facility] [id number] Insomnia, Problem Active Com mon unspecifie Spirit d type - [facility] Migraine Migraine Problem Active Commo n [facility] Gout Gout Problem Active Common [facility] Allergies, Adverse Reactions, Alerts Allergy Allergy Status Severity Reaction(s) Onset Inactive Treating Comm ents Source Name Type Date Date Clinician Shellfis Drug Active [facility] Allergy 2- [facility] Containi 00:00: Medical ng 00 [place] Products Fish Drug Active [facility] Containi Allergy 09-12 [facility] ng 00:00: Medical Products 00 [place] FISH Allergy Active [facility] CONTAINI 09-12 [facility] NG 00:00: Medical PRODUCTS 00 [place] SHELLFIS Allergy Active [facility] H 2- [facility] CONTAINI 00:00: Medical NG 00 [place] PRODUCTS Eggshell Drug Active [facility] Membrane Allergy 09-07 [facility] 00:00: Medical 00 [place] EGGSHELL Allergy Active [facility] MEMBRANE 09-07 [facility] 00:00: Medical 00 [place] Prometha Propensi Active [facility] zine ty to 09-02 [facility] adverse 00:00: Medical reaction 00 [place] s Ceftriax Propensi Active [facility] one ty to 09-02 [facility] adverse 00:00: Medical reaction 00 [place] Iodine Propensi Active [facility] ty to 09-02 [facility] adverse 00:00: Medical reaction 00 Center s CEFTRIAX Allergy Active [facility] ONE 09-02 [facility] 00:00: Medical 00 [place] IODINE Allergy Active [facility] -22 [facility] 00:00: Medical 00 [place] PROMETHA Allergy Active [facility] ZINE - [facility] 00:00: Medical 00 [place] Ciproflo Propensi Active Hives 2020-08 Method i xacin ty to 0-13 st adverse 00:00: Hospita reaction 00 l s to drug Ceftriax Propensi Active Itching Metho di one ty to 2-25 st adverse 00:00: Hospita reaction 00 l s to drug Ceftriax Propensi Active Itching 2018-0 Unive rs one ty to 2 ity of adverse 00:00: [place] reaction 00 Medical s Branch CEFTRIAX DRUG Active ITCHING 2018-0 Univers ONE INGREDI 2 ity of 00:00: [place] 00 Medical Branch Prometha Propensi Active Other - See 2017-0 Severe U nivers zine ty to comments 3 confusion ity o f adverse 00:00: [place] reaction 00 Medical s Branch PROMETHA DRUG Active Other-Cmnt 2017-0 Univ ers ZINE INGREDI 3 ity of 00:00: [place] 00 Medical Branch Eggshell Propensi Active Diarrhea 2017-0 Egg yoke Me thodi Membrane ty to 10-08 st adverse 00:00: Hospita reaction 00 l s to drug Eggshell Propensi Active Diarrhea 2017-0 Egg yoke Un linda Membrane ty to 10-08 ity of adverse 00:00: [place] reaction 00 Medical s Branch EGGSHELL DRUG Active Diarrhea 2017-0 Univer s MEMBRANE INGREDI 10-08 ity of 00:00: [place] 00 Medical Branch Prometha Propensi Active Other (See 2017-0 [...] of DERIVED 00:00: [place] 00 [facility] Branch Iodine Propensi Active Anaphylaxis 2015-0 SOB, Met hodi ty to 05-01 wheezing, st adverse 00:00: "my Hospita reaction 00 throat l s to closes drug up."*pt states cannot have topical nor IV Iodine Propensi Active Anaphylaxis Uni vers ty to 8 ity of adverse 00:00: [place] reaction 00 Medical s Branch IODINE DRUG Active Anaphylaxis Unive rs INGREDI 03-29 ity of 00:00: [place] 00 Medical Branch NO KNOWN Allergy Active [facility] ALLERGIE S 463 Drug Active Unknown Common allergy Spirit - [facility] prometha prometha Active Unknown Commo n zine zine [facility] Family History Family Member Diagnosis Comments Start Date Stop Date Source Natural father No Known Problems Met [facility] Natural mother No Known Problems Met [facility] Social History Social Habit Start Date Stop Date Quantity Comments Source Exposure to Not sure University of SARS-CoV-2 (event) [facility] Branch History SDOH [facility] Alcohol Std Drinks Medica l Center History SDOH [facility] Alcohol Binge Medical [place] ter History SDOH [facility] Alcohol Comment Medical C enter History of Tobacco Common Spirit - Use [facility] Alcohol intake 2021-09-02 2021-09-[address] [facility] es 00:00:00 00:00:00 non-drinker Medical Cente r (finding) History SDOH 2021-09-02 2021-09-[address] [facility] Alcohol Frequency 00:00:00 00:00:00 [facility] Tobacco use and 2019-01-30 2019-01-30 Never used Universit y of exposure 00:00:00 00:00:00 [facility] Cigarettes smoked 2016-11-22 2016-11-[address] current (pack per 00:00:00 00:00:00 [facility] l day) - Reported Cigarette 2016-11-22 2016-11-22 [facility] pack-years 00:00:00 00:00:00 Hospital Tobacco Comment 2016-09-12 2016-09-12 smokes 5 [facility] 00:00:00 00:00:00 cigarettes per Hospital day Sex Ass[birth year] At [birth year] [facility] 00:00:00 00:00:00 [facility] Smoking Status Start Date Stop Date Source Former Smoker 2021-10-13 00:00:00 2021-10-13 00:00:00 Common S pirit - [facility] Never smoker [facility] Medications Ordered Filled Start Stop Current Ordering Indication Dosage Frequency Signature Comments Components Source Medication Medication Date Date Medication? Clinician (SIG) Name Name estradioL Yes [id number] Apply 1g Univers (ESTRACE) 2-21 vaginally ity o f 0.01 % (0.1 00:00: at bedtime [place] mg/gram) 00 every Medical vaginal night for Branch cream 2 weeks and then apply 1g vaginally at bedtime 3 times per week ( ida) nystatin 0 Yes [id number] Apply to Un linda (NYSTOP) 2-21 area(s) 3 ity of 100,000 00:00: (three) [place] unit/gram 00 times Medical powder daily. Branch estradioL Yes [id number] Apply 1g Univers (ESTRACE) 2-21 vaginally ity o f 0.01 % (0.1 00:00: at bedtime [place] mg/gram) 00 every Medical vaginal night for Branch cream 2 weeks and then apply 1g vaginally at bedtime 3 times per week ( ida) nystatin 0 Yes [id number] Apply to Un linda (NYSTOP) 2-21 area(s) 3 ity of 100,000 00:00: (three) [place] unit/gram 00 times Medical powder daily. Branch estradioL Yes [id number] Apply 1g Univers (ESTRACE) 2-21 vaginally ity o f 0.01 % (0.1 00:00: at bedtime [place] mg/gram) 00 every Medical vaginal night for Branch cream 2 weeks and then apply 1g vaginally at bedtime 3 times per week ( ida) nystatin 0 Yes [id number] Apply to Un linda (NYSTOP) 2-21 area(s) 3 ity of 100,000 00:00: (three) [place] unit/gram 00 times Medical powder daily. Branch methylnaltr Yes Take by Uni vers exone 2-16 mouth. ity of bromide 14:28: [place] (RELISTOR 49 Medical ORAL) Branch potassium Yes Take by Unive rs (POTASSIMIN 2-16 mouth once it y of ORAL) 14:28: now. [address] Branch spironolact 0 Yes 100mg Take 100 U nivers one 100 mg 2-16 mg by ity of tablet 14:28: mouth. [address] Branch methylnaltr 0 Yes Take by Uni vers exone 2-16 mouth. ity of bromide 14:28: [place] (RELIOR Medical ORAL) Branch potassium Yes Take by Unive rs (POTASSIMIN 2-16 mouth once it y of ORAL) 14:28: now. [address] spironolact Yes 100mg Take 100 U nivers one 100 mg 2-16 mg by ity of tablet 14:28: mouth. [address] methylnaltr Yes Take by Uni vers exone 2-16 mouth. ity of bromide 14:28: [place] (RELISTOR Medical ORAL) Branch potassium Yes Take by Unive rs (POTASSIMIN 2-16 mouth once it y of ORAL) 14:28: now. [address] spironolact Yes 100mg Take 100 U nivers one 100 mg 2-16 mg by ity of tablet 14:28: mouth. [address] lactulose Yes 20g Q.[id number] Take [address] (Kristalose 2-07 [id number] packet (20 [facility]ukes ) 20 gram 00:00: 3D g total) Medi cj packet 00 by mouth 3 Center (three) times daily START ONCE STOOLS ARE FORMED.. eszopiclone Yes 2mg Take [address] (LUNESTA) 2 2-05 by mouth Luke s MG tablet 12:13: every Medical 56 night as Center needed. gabapentin Yes 1{capsu Q.5D Take [address] (NEURONTIN) 2-05 le} capsule by Susanna kes 300 MG 12:13: mouth 2 Medical capsule 56 (two) Center times daily. pantoprazol Yes 1{tbl} QD Take [address] e 2-05 tablet by [facility]ukes (PROTONIX) 12:13: mouth Medica l 40 MG 56 daily. Center tablet QUEtiapine 0 Yes 1{tbl} QD Take [address] (SEROqueL) 2-05 tablet by Luke s 50 MG 12:13: mouth Medical tablet 56 nightly. Center rifAXIMin 0 Yes 1{tbl} Q.5D Take [address] (Xifaxan) 2-05 tablet by [facility] 550 mg Tab 12:13: mouth 2 Medi cj 56 (two) Center times daily. spironolact 0 Yes 25mg QD Take [address] one 2-05 by mouth [facility]ukes (ALDACTONE) 12:13: daily. Medi cj 50 MG 56 Center tablet thiamine 0 Yes 1{tbl} QD Take 1 CHI S t 100 MG 2-05 tablet by [facility]ukes tablet 12:13: mouth Medical 56 daily. Center topiramate 0 Yes 1{tbl} QD Take [address] (TOPAMAX) 2-05 tablet by [facility] 50 MG 12:13: mouth Medical tablet 56 nightly. Center ubrogepant 0 Yes 100mg Take [address] (Ubrelvy) 2-05 mg by [facility] 100 mg Tab 12:13: mouth 2 Medi cj 56 (two) Center times daily as needed. ondansetron Yes 4mg Take [address] (ZOFRAN) 4 2-05 by mouth 2 Alejo es MG tablet 12:13: (two) Medical 56 times Center daily as needed for Nausea. cyanocobala 0 Yes 1000ug Inject [facility] min 2-05 1,000 mcg Lukes (VITAMIN 12:13: subcutaneo Med ical B-12) 1,000 56 usly every Ce nter mcg/mL 30 injection (thirty) days. traMADoL 0 Yes 50mg Take [address] (ULTRAM) 50 2-05 by mouth Luke s mg tablet 12:13: every 6 Medic al 56 (six) Center hours as needed for Pain. fidaxomicin 2021-0 2021- No 200mg Take [address] 200 mg Tab 2-05 02-08 tablet [facility]ukes 00:00: 23:59 (200 mg Medical 00 :00 total) by Center mouth every 12 (twelve) hours for 3 days. lactulose 202-0 2022- No 1{packe Q.[id number] Take [address] (Kristalose 2-04 02-04 t} [id number] packet by [facility] ) 20 gram 15:50: 00:00 3D mouth 3 Medi cj packet 31 :00 (three) Center times daily. zinc [address] [facility] oxide-luana 2-04 TOPICALLY Alejo es latum 00:00: BID. Medical (CRITIC-AID 00 Center ) 20-51 % Pste topical paste nystatin 2022- No Q.5D Apply [facility] (MYCOSTATIN 09-15- topically Susanna kes ) 100,000 00:00: 23:59 2 (two) Medi cj unit/gram 00 :00 times Center powder daily. cholestyram 2022- No 1{packe Q.5D Take [address] ine 2- 02-04 t} packet by [employer] ([facility]) 00:00: 23:59 mouth 2 Med ical 4 gram PwPk 00 :00 (two) Center packet times daily. acetaminoph 2022- No 650mg Take [address] en 2-11 10-30 tablets Lu[employer]@ (TYLENOL) 00:00: 23:59 (650 mg Medi cj 325 MG 00 :00 total) by Center tablet mouth every 8 (eight) hours as needed for up to 360 days. lidocaine 2021- No 1{patch Q24H Place [address] (LIDODERM) 09-15-06 } patch onto Susanna kes 5 % patch 00:00: 23:59 the skin Med ical 00 :00 daily for Center 30 days Remove & Discard patch within 12 hours or as directed by . fidaxomicin 2021- No 200mg Take [address] 200 mg Tab 09-15-05 tablet [facility]ukes 00:00: 00:00 (200 mg Medical 00 :00 total) by Center mouth every 12 (twelve) hours for 7 days. cholestyram 2021- No 1{packe Q.5D Take [address] ine 2-04 02-04 t} packet by [employer] (inviRAN) 00:00: 00:00 mouth 2 Med ical 4 gram PwPk 00 :00 (two) Center packet times daily. fidaxomicin 2021- No 200mg Take [address] 200 mg Tab 2-11 11-04 tablet [facility]ukes 00:00: 00:00 (200 mg Medical 00 :00 total) by Center mouth every 12 (twelve) hours for 7 days. lidocaine 2021-2021- No 1{patch Q24H Place [address] (LIDODERM) 2-04 02-04 } patch onto Susanna kes 5 % patch 00:00: 00:00 the skin Med ical 00 :00 daily for Center 30 days Remove & Discard patch within 12 hours or as directed by . cyanocobala Yes 1000ug Inject [facility] [...] (two) Center times daily. lactulose Yes 1{packe Q.[id number] Take [address] (Kristalose 1-24 t} [id number] packet by Gurpreet ) 20 gram 16:27: 3D mouth 3 Medic al packet 52 (three) Center times daily. azithromyci 2021- No 500mg QD Take 1 Me thodi n 1-20 -[address] (ZITHROMAX) 00:00: 05:59 (500 mg [...] 50mg QD Take 50 mg Methodi (SEROqueL) -14 -[address] 50 MG 18:28: 00:00 [...] daily as l [facility]. [facility] [...] Take 3 mg M ethodi (LUNESTA) 3 -[address] mg tablet 18:28: nightly. Hosp page 48 Per [place] l Prescripti on Drug Monitoring Program records: Last filled: 08/09/21 Quantity: 30 Days Supply: 30 traMADoL Yes 50mg Q4H Take 50 mg Met hodi (ULTRAM) 50 -[address] mg tablet 18:28: every 4 Hospi ta 48 (four) l hours as needed for moderate pain. Per [place] Prescripti on Drug Monitoring Program records: Last [...] a tablet 47 :00 l SUMAtriptan Yes [id number] 50mg Q24H Take 1 Methodi (Imitrex) 1-10 [...] nightly for 30 days. pantoprazol 2021- No [id number] 40mg QD Take 1 Methodi e 08-21 [...] 2021- No 1 tablet M ethodi (COGENTIN) 1-08 01-[address] 0.5 MG 09:52: 00:00 Orally Hospita tablet 26 :00 Once a day l nitrofurant 2020-08- No 100mg Q.5D Take 1 Me thodi oin, [address] macrocrysta 00:00: 00:00 (100 mg [...] QD Take 1 Met hodi (LUNESTA) 1 11-22 tablet (1 st MG tablet 00:00: [...] 4 00 :00 l mg tablet ibuprofen No 400mg Q8H Take 1 Meth erasto [...] for 30 days. gabapentin 2021- No 300mg Q.[id number] Take 1 Methodi (NEURONTIN) 04-[id number] 300 mg 00:00: 00:00 3D (300 mg Hospita capsule 00 :00 total) by l mouth 3 (three) times a day for 30 days. Ketorolac Ketorolac 2020-0 No 30mg Com mon (Toradol) (Toradol) 8-24 Spiri t per 15mg per 15mg 00:00: - [facility] Ketorolac Ketorolac 2020-0 No 30mg Com mon (Toradol) (Toradol) 8-24 Spiri t per 15mg per 15mg 00:00: - [facility] Ketorolac Ketorolac 2020-0 No 30mg Com mon (Toradol) (Toradol) 8-24 Spiri t per 15mg per 15mg 00:00: - [facility] Vitamin B12 Vitamin B12 2019-0 No 1000ug Common (Cyanocobal (Cyanocobal 7-24 S pirit jameson) jameson) 00:00: - [facility] Vitamin B12 Vitamin B12 2020-0 No 1000ug Common (Cyanocobal (Cyanocobal 7-24 S pirit jameson) jameson) 00:00: - [facility] Vitamin B12 Vitamin B12 2020-0 No 1000ug Common (Cyanocobal (Cyanocobal 7-24 S pirit jameson) jameson) 00:00: - [facility] pantoprazol 2021- No [id number] 40mg QD Take 1 [facility] tablet (40 st (PROTONIX) 00:00: 00:00 mg total) H ospita 40 MG EC 00 :00 by mouth l tablet every morning. SUMAtriptan 2021- No [id number] 50mg Q24H Take 1 [facility] (Imitrex) 6-15 08-19 tablet (50 st 50 MG 00:00: 00:00 mg total) Hospit a tablet 00 :00 by mouth l daily as needed for migraine for up to 30 doses. May repeat in 2 hours if unresolved . Max dose 200 mg/day BD Disp BD Disp 2018-08 No BD Disp Needle 25G Needle 25G 2-09 Needle 25G X 1" X 1" 00:00: X 1" 00 BD Disp BD Disp 2018-08 No BD Disp Needle 25G Needle 25G 2-09 Needle 25G X 1" X 1" 00:00: X 1" 00 BD Disp BD Disp 2018-08 No BD Disp Needle 25G Needle 25G 2-09 Needle 25G X 1" X 1" 00:00: X 1" 00 BD Disp BD Disp 2018-08 No BD Disp Needle 25G Needle 25G 2-09 Needle 25G X 1" X 1" 00:00: X 1" 00 BD Disp BD Disp 2018-08 No BD Disp Needle 25G Needle 25G 2-09 Needle 25G X 1" X 1" 00:00: X 1" 00 BD Disp BD Disp 2018-08 No BD Disp Needle 25G Needle 25G 2-09 Needle 25G X 1" X 1" 00:00: X 1" 00 BD Disp BD Disp 2018-08 No BD Disp Needle 25G Needle 25G 2-09 Needle 25G X 1" X 1" 00:00: X 1" 00 BD Disp BD Disp 2018-08 No BD Disp Needle 25G Needle 25G 2-09 Needle 25G X 1" X 1" 00:00: X 1" 00 BD Disp BD Disp 2018-08 No BD Disp Needle 25G Needle 25G 2-09 Needle 25G X 1" X 1" 00:00: X 1" 00 BD Disp BD Disp 2018-08 No BD Disp Needle 25G Needle 25G 2-09 Needle 25G X 1" X 1" 00:00: X 1" 00 BD Disp BD Disp 2018-08 No BD Disp Needle 25G Needle 25G 2-09 Needle 25G X 1" X 1" 00:00: X 1" 00 BD Disp BD Disp 2018-08 No BD Disp Needle 25G Needle 25G 2-09 Needle 25G X 1" X 1" 00:00: X 1" 00 BD Disp BD Disp 2018- No BD Disp Needle 25G Needle 25G 2-09 Needle 25G X 1" X 1" 00:00: X 1" 00 BD Disp BD Disp 2018- No BD Disp Needle 25G Needle 25G 2-09 Needle 25G X 1" X 1" 00:00: X 1" 00 BD Disp BD Disp 2018-08 No BD Disp Needle 25G Needle 25G 2-09 Needle 25G X 1" X 1" 00:00: X 1" 00 Vitamin B12 Vitamin B12 2018-08 No 1000ug Common (Cyanocobal (Cyanocobal 2-05 S pirit jameson) jameson) 00:00: - [facility] Vitamin B12 Vitamin B12 2018-08 No 1000ug Common (Cyanocobal (Cyanocobal 2-05 S pirit jameson) jameson) 00:00: - [facility] Vitamin B12 Vitamin B12 2018-08 No 1000ug Common (Cyanocobal (Cyanocobal 2-05 S pirit jameson) jameson) 00:00: - [facility] Vitamin B12 Vitamin B12 2018-0 No 1000ug Common (Cyanocobal (Cyanocobal 8-29 S pirit jameson) jameson) 00:00: - [facility] Vitamin B12 Vitamin B12 2018-0 No 1000ug Common (Cyanocobal (Cyanocobal 8-29 S pirit jameson) jameson) 00:00: - [facility] Vitamin B12 Vitamin B12 2018-0 No 1000ug Common (Cyanocobal (Cyanocobal 8-29 S pirit jameson) jameson) 00:00: - [facility] eszopiclone 2019-0 Yes 2mg Take 2 mg U nivers 2 mg tablet 03-09 by mouth ity of 16:42: at [place] [address] bedtime. Medical Branch GABAPENTIN 2019-0 Yes Take by Univ ers ORAL 03-09 mouth. ity of 16:42: [place] [address] Medical Branch traMADOL 50 2019-0 Yes 50mg Take 50 mg Univers mg tablet 03-09 by mouth ity of 16:42: as needed [place] [address] for Pain Medical (scale Branch 7-10). eszopiclone 2019-0 Yes 2mg Take 2 mg U nivers 2 mg tablet 03-09 by mouth ity of 16:42: at [place] [address] bedtime. Medical Branch GABAPENTIN 2019-0 Yes Take by [facility] ers ORAL 7-29 mouth. ity of 16:42: [place] [address] Medical Branch traMADOL 50 2019-0 Yes 50mg Take 50 mg Univers mg tablet 7-29 by mouth ity of 16:42: as needed [place] [address] for Pain Medical (scale Branch 7-10). eszopiclone 2019-0 Yes 2mg Take 2 mg U nivers 2 mg tablet 7-29 by mouth ity of 16:42: at [place] [address] bedtime. Medical Branch GABAPENTIN 2019-0 Yes Take by [facility] ers ORAL 7-29 mouth. ity of 16:42: [place] [address] Medical Branch traMADOL 50 2019-0 Yes 50mg Take 50 mg Univers mg tablet 7-29 by mouth ity of 16:42: as needed [place] [address] for Pain Medical (scale Branch 7-10). lactulose 2019-0 Yes [id number] 20g Take 1 Un linda (KRISTALOSE 7-29 Packet by ity of ) 20 gram 00:00: mouth 3 [place] packet 00 (three) Medical times Branch daily. lactulose 2019-0 Yes [id number] 20g Take 1 Un [facility] (KRISTALOSE 7-29 Packet by ity of ) 20 gram 00:00: mouth 3 [place] packet 00 (three) Medical times Branch daily. lactulose 2019-0 Yes [id number] 20g Take 1 Un [facility] (KRISTALOSE 7-29 Packet by ity of ) 20 gram 00:00: mouth 3 [place] packet 00 (three) Medical times Branch daily. ondansetron 2019-0 Yes [id number] 8mg Take 2 Univers 4 mg tablet 4-01 tablets by it y of 00:00: mouth [place] 00 every 8 Medical (eight) Branch hours as needed for Nausea and Vomiting (N/V). ondansetron 2019-0 Yes [id number] 8mg Take 2 Univers 4 mg tablet 4-01 tablets by it y of 00:00: mouth [place] 00 every 8 Medical (eight) Branch hours as needed for Nausea and Vomiting (N/V). ondansetron 2019-0 Yes [id number] 8mg Take 2 Univers 4 mg tablet 4-01 tablets by it y of 00:00: mouth [place] 00 every 8 Medical (eight) Branch hours as needed for Nausea and Vomiting (N/V). butalbital- 2019-0 Yes [id number] 1{capsu Take 1 Univers aspirin-caf 3-25 le} capsule by it y of feine 00:00: mouth [place] 50-325-40 00 every 4 Medical mg per (four) Branch capsule hours as needed for Pain (headache unrelieved wtih other medication s). butalbital Yes [id number] 1{capsu Take 1 Univers aspirin-caf 3-25 le} capsule by it y of feine 00:00: mouth [place] 50-325-40 00 every 4 Medical mg per (four) Branch capsule hours as needed for Pain (headache unrelieved wtih other medication s). butalbital Yes [id number] 1{capsu Take 1 Univers aspirin-caf 3-25 le} capsule by it y of feine 00:00: mouth [place] 50-325-40 00 every 4 Medical mg per (four) Branch capsule hours as needed for Pain (headache unrelieved wtih other medication s). Albuterol Albuterol No 2{puffs Albuterol Sulfate HFA Sulfate HFA 129 _as_nee Sulfate 108 (90 108 (90 00:00: ded} HFA 108 Base) Base) 00 (90 Base) MCG/ACT MCG/ACT MCG/ACT Albuterol Albuterol No 2{puffs Albuterol Sulfate HFA Sulfate HFA 1-29 _as_nee Sulfate 108 (90 108 (90 00:00: ded} HFA 108 Base) Base) 00 (90 Base) MCG/ACT MCG/ACT MCG/ACT XIFAXAN 550 2016-08 Yes [id number] TAKE ONE Univers mg tablet 1-27 TABLET BY ity o f 00:00: MOUTH 2 [place] 00 TIMES A Medical DAY Branch PANTOPRAZOL 2016-08 Yes [id number] TAKE ONE Univers E 40 mg EC 1-27 TABLET BY ity of tablet 00:00: MOUTH [place] 00 EVERY DAY Medical Branch XIFAXAN 550 2016-08 Yes [id number] TAKE ONE Univers mg tablet 1-27 TABLET BY ity o f 00:00: MOUTH 2 [place] 00 TIMES A Medical DAY Branch PANTOPRAZOL 2016-08 Yes [id number] TAKE ONE Univers E 40 mg EC 1-27 TABLET BY ity of tablet 00:00: MOUTH [place] 00 EVERY DAY Medical Branch XIFAXAN 550 2016-08 Yes [id number] TAKE ONE Univers mg tablet 1-27 TABLET BY ity o f 00:00: MOUTH 2 [place] 00 TIMES A Medical DAY Branch PANTOPRAZOL 2016-08 Yes [id number] TAKE ONE Univers E 40 mg EC [...] 0-10 by mouth. ity of tablet 00:00: 00 Medical Branch furosemide 2015-08 Yes 40mg Take 40 mg U nivers 40 mg 0-10 by mouth. ity of tablet 00:00: [place] 00 Medical Branch furosemide 2015-08 Yes 40mg Take 40 mg U nivers 40 mg 0-10 by mouth. ity of tablet 00:00: [address] Branch Allopurinol Allopurinol Yes Fernando 2 tablets [facility] Zofran ODT Zofran ODT No 1{table TID Zofran ODT 4 MG 4 MG t_on_th 4 MG e_tongu e_and_a llow_to _dissol ve} Pantoprazol Pantoprazol No 1{table QD Pantoprazo e Sodium 40 e Sodium 40 t} le Sodium MG MG 40 MG Indomethaci Indomethaci No 1{capsu BID Indomethac n 50 MG n 50 MG le_with in 50 MG _food_o r_milk} SUMAtriptan SUMAtriptan No SUMAtripta Succinate Succinate n 100 MG 100 MG Succinate 100 MG SEROquel 50 SEROquel 50 No 1{table QD SEROquel MG MG t} 50 MG Xifaxan 550 Xifaxan 550 No 1{table BID Xifaxan MG MG t} 550 MG Topiramate Topiramate No Topiramate 50 MG 50 MG 50 MG Ultram 50 Ultram 50 No 1{table QID Ultram 50 MG MG t_as_ne MG eded} Belsomra 10 Belsomra 10 No 1{table QD Belsomra MG MG t_at_be 10 MG dtime_a s_neede d} Gabapentin Gabapentin No TID Gabapentin 100 MG 100 MG 100 MG Indomethaci Indomethaci No Indomethac n 50 MG n 50 MG in 50 MG Syringe 2-3 Syringe 2-3 No Syringe ML 3 ML ML 3 ML 2-3 ML 3 ML Furosemide Furosemide No 1{table QD Furosemide 40 MG 40 MG t} 40 MG BD TB BD TB No BD TB Syringe 25G Syringe 25G Syringe X 5/8" 1 ML X 5/8" 1 ML 25G X 5/8" 1 ML Allopurinol Allopurinol No 1{table QD Allopurino 100 MG 100 MG t} l 100 MG Sodium Sodium No Sodium Bicarbonate Bicarbonate Bicarbonat 650 MG 650 MG e 650 MG Spironolact Spironolact No 1{table QD Spironolac one 25 MG one 25 MG t_with_ tone 25 MG food} Zinc Zinc No Zinc Sulfate 220 Sulfate 220 Sulfate (50 Zn) MG (50 Zn) MG 220 (50 Zn) MG ProAir HFA ProAir HFA No ProAir HFA 108 (90 108 (90 108 (90 Base) Base) Base) MCG/ACT MCG/ACT MCG/ACT Folic Acid Folic Acid No 1{table QD Folic Acid 1 MG 1 MG t} 1 MG Cyanocobala Cyanocobala No Cyanocobal min 1000 min 1000 jameson 1000 MCG/ML MCG/ML MCG/ML Thiamine Thiamine No Thiamine HCl 100 MG HCl 100 MG HCl 100 MG Xifaxan 550 Xifaxan 550 No 1{table BID Xifaxan MG MG t} 550 MG Benztropine Benztropine No 1{table QD Benztropin Mesylate Mesylate t_at_be e Mesylate 0.5 MG 0.5 MG dtime} 0.5 MG Cyanocobala Cyanocobala No Cyanocobal min 1000 min 1000 jameson 1000 MCG/ML MCG/ML MCG/ML Kristalose Kristalose No 1{packe Kristalose 20 GM 20 GM t} 20 GM Primidone Primidone No 1{table QD Primidone 50 MG 50 MG t} 50 MG Syringe 2-3 Syringe 2-3 No Syringe ML 3 ML ML 3 ML 2-3 ML 3 ML Gabapentin Gabapentin No 1{capsu BID Gabapentin 300 MG 300 MG le} 300 MG Pantoprazol Pantoprazol No 1{table QD Pantoprazo e Sodium 40 e Sodium 40 t} le Sodium MG MG 40 MG Spironolact Spironolact No 1{table QD Spironolac one 25 MG one 25 MG t_with_ tone 25 MG food} Belsomra 10 Belsomra 10 No 1{table QD Belsomra MG MG t_at_be 10 MG dtime_a s_neede d} Allopurinol Allopurinol No 1{table QD Allopurino 100 MG 100 MG t} l 100 MG Rexulti 2 Rexulti 2 No Rexulti 2 MG MG MG Ultram 50 Ultram 50 No 1{table QID Ultram 50 MG MG t_as_ne MG eded} SUMAtriptan SUMAtriptan No SUMAtripta Succinate Succinate n 100 MG 100 MG Succinate 100 MG SEROquel 50 SEROquel 50 No 1{table QD SEROquel MG MG t} 50 MG Indomethaci Indomethaci No 1{capsu BID Indomethac n 50 MG n 50 MG le_with in 50 MG _food_o r_milk} Zinc Zinc No Zinc Sulfate 220 Sulfate 220 Sulfate (50 Zn) MG (50 Zn) MG 220 (50 Zn) MG Thiamine Thiamine No Thiamine HCl 100 MG HCl 100 MG HCl 100 MG Topiramate Topiramate No Topiramate 50 MG 50 MG 50 MG BD TB BD TB No BD TB Syringe 25G Syringe 25G Syringe X 5/8" 1 ML X 5/8" 1 ML 25G X 5/8" 1 ML Zofran ODT Zofran ODT No 1{table TID Zofran ODT 4 MG 4 MG t_on_ 4 MG e_tongu e_and_a llow_to _dissol ve} Xifaxan 550 Xifaxan 550 No 1{table BID Xifaxan MG MG t} 550 MG Benztropine Benztropine No 1{table QD Benztropin Mesylate Mesylate t_at_be e Mesylate 0.5 MG 0.5 MG dtime} 0.5 MG Cyanocobala Cyanocobala No Cyanocobal min 1000 min 1000 jameson 1000 MCG/ML MCG/ML MCG/ML Kristalose Kristalose No 1{packe Kristalose 20 GM 20 GM t} 20 GM Primidone Primidone No 1{table QD Primidone 50 MG 50 MG t} 50 MG Syringe 2-3 Syringe 2-3 No Syringe ML 3 ML ML 3 ML 2-3 ML 3 ML Gabapentin Gabapentin No 1{capsu BID Gabapentin 300 MG 300 MG le} 300 MG Pantoprazol Pantoprazol No 1{table QD Pantoprazo e Sodium 40 e Sodium 40 t} le Sodium MG MG 40 MG Spironolact Spironolact No 1{table QD Spironolac one 25 MG one 25 MG t_with_ tone 25 MG food} Belsomra 10 Belsomra 10 No 1{table QD Belsomra MG MG t_at_be 10 MG dtime_a s_neede d} Allopurinol Allopurinol No 1{table QD Allopurino 100 MG 100 MG t} l 100 MG Rexulti 2 Rexulti 2 No Rexulti 2 MG MG MG Ultram 50 Ultram 50 No 1{table QID Ultram 50 MG MG t_as_ne MG eded} SUMAtriptan SUMAtriptan No SUMAtripta Succinate Succinate n 100 MG 100 MG Succinate 100 MG SEROquel 50 SEROquel 50 No 1{table QD SEROquel MG MG t} 50 MG Indomethaci Indomethaci No 1{capsu BID Indomethac n 50 MG n 50 MG le_with in 50 MG _food_o r_milk} Zinc Zinc No Zinc Sulfate 220 Sulfate 220 Sulfate (50 Zn) MG (50 Zn) MG 220 (50 Zn) MG Thiamine Thiamine No Thiamine HCl 100 MG HCl 100 MG HCl 100 MG Topiramate Topiramate No Topiramate 50 MG 50 MG 50 MG BD TB BD TB No BD TB Syringe 25G Syringe 25G Syringe X 5/8" 1 ML X 5/8" 1 ML 25G X 5/8" 1 ML Zofran ODT Zofran ODT No 1{table TID Zofran ODT 4 MG 4 MG t_on_th 4 MG e_tongu e_and_a llow_to _dissol ve} Xifaxan 550 Xifaxan 550 No 1{table BID Xifaxan MG MG t} 550 MG Benztropine Benztropine No 1{table QD Benztropin Mesylate Mesylate t_at_be e Mesylate 0.5 MG 0.5 MG dtime} 0.5 MG Cyanocobala Cyanocobala No Cyanocobal min 1000 min 1000 jameson 1000 MCG/ML MCG/ML MCG/ML Kristalose Kristalose No 1{packe Kristalose 20 GM 20 GM t} 20 GM Primidone Primidone No 1{table QD Primidone 50 MG 50 MG t} 50 MG Syringe 2-3 Syringe 2-3 No Syringe ML 3 ML ML 3 ML 2-3 ML 3 ML Gabapentin Gabapentin No 1{capsu BID Gabapentin 300 MG 300 MG le} 300 MG Pantoprazol Pantoprazol No 1{table QD Pantoprazo e Sodium 40 e Sodium 40 t} le Sodium MG MG 40 MG Spironolact Spironolact No 1{table QD Spironolac one 25 MG one 25 MG t_with_ tone 25 MG food} Belsomra 10 Belsomra 10 No 1{table QD Belsomra MG MG t_at_be 10 MG dtime_a s_neede d} Allopurinol Allopurinol No 1{table QD Allopurino 100 MG 100 MG t} l 100 MG Rexulti 2 Rexulti 2 No Rexulti 2 MG MG MG Ultram 50 Ultram 50 No 1{table QID Ultram 50 MG MG t_as_ne MG eded} SUMAtriptan SUMAtriptan No SUMAtripta Succinate Succinate n 100 MG 100 MG Succinate 100 MG SEROquel 50 SEROquel 50 No 1{table QD SEROquel MG MG t} 50 MG Indomethaci Indomethaci No 1{capsu BID Indomethac n 50 MG n 50 MG le_with in 50 MG _food_o r_milk} Zinc Zinc No Zinc Sulfate 220 Sulfate 220 Sulfate (50 Zn) MG (50 Zn) MG 220 (50 Zn) MG Thiamine Thiamine No Thiamine HCl 100 MG HCl 100 MG HCl 100 MG Topiramate Topiramate No Topiramate 50 MG 50 MG 50 MG BD TB BD TB No BD TB Syringe 25G Syringe 25G Syringe X 5/8" 1 ML X 5/8" 1 ML 25G X 5/8" 1 ML Zofran ODT Zofran ODT No 1{table TID Zofran ODT 4 MG 4 MG t_on_th 4 MG e_tongu e_and_a llow_to _dissol ve} Xifaxan 550 Xifaxan 550 No 1{table BID Xifaxan MG MG t} 550 MG Benztropine Benztropine No 1{table QD Benztropin Mesylate Mesylate t_at_be e Mesylate 0.5 MG 0.5 MG dtime} 0.5 MG Cyanocobala Cyanocobala No Cyanocobal min 1000 min 1000 jameson 1000 MCG/ML MCG/ML MCG/ML Kristalose Kristalose No 1{packe Kristalose 20 GM 20 GM t} 20 GM Primidone Primidone No 1{table QD Primidone 50 MG 50 MG t} 50 MG Syringe 2-3 Syringe 2-3 No Syringe ML 3 ML ML 3 ML 2-3 ML 3 ML Gabapentin Gabapentin No 1{capsu BID Gabapentin 300 MG 300 MG le} 300 MG Pantoprazol Pantoprazol No 1{table QD Pantoprazo e Sodium 40 e Sodium 40 t} le Sodium MG MG 40 MG Spironolact Spironolact No 1{table QD Spironolac one 25 MG one 25 MG t_with_ tone 25 MG food} Belsomra 10 Belsomra 10 No 1{table QD Belsomra MG MG t_at_be 10 MG dtime_a s_neede d} Allopurinol Allopurinol No 1{table QD Allopurino 100 MG 100 MG t} l 100 MG Rexulti 2 Rexulti 2 No Rexulti 2 MG MG MG Ultram 50 Ultram 50 No 1{table QID Ultram 50 MG MG t_as_ne MG eded} SUMAtriptan SUMAtriptan No SUMAtripta Succinate Succinate n 100 MG 100 MG Succinate 100 MG SEROquel 50 SEROquel 50 No 1{table QD SEROquel MG MG t} 50 MG Indomethaci Indomethaci No 1{capsu BID Indomethac n 50 MG n 50 MG le_with in 50 MG _food_o r_milk} Zinc Zinc No Zinc Sulfate 220 Sulfate 220 Sulfate (50 Zn) MG (50 Zn) MG 220 (50 Zn) MG Thiamine Thiamine No Thiamine HCl 100 MG HCl 100 MG HCl 100 MG Topiramate Topiramate No Topiramate 50 MG 50 MG 50 MG BD TB BD TB No BD TB Syringe 25G Syringe 25G Syringe X 5/8" 1 ML X 5/8" 1 ML 25G X 5/8" 1 ML Zofran ODT Zofran ODT No 1{table TID Zofran ODT 4 MG 4 MG t_on_th 4 MG e_tongu e_and_a llow_to _dissol ve} Xifaxan 550 Xifaxan 550 No 1{table BID Xifaxan MG MG t} 550 MG Benztropine Benztropine No 1{table QD Benztropin Mesylate Mesylate t_at_be e Mesylate 0.5 MG 0.5 MG dtime} 0.5 MG Cyanocobala Cyanocobala No Cyanocobal min 1000 min 1000 jameson 1000 MCG/ML MCG/ML MCG/ML Kristalose Kristalose No 1{packe Kristalose 20 GM 20 GM t} 20 GM Primidone Primidone No 1{table QD Primidone 50 MG 50 MG t} 50 MG Syringe 2-3 Syringe 2-3 No Syringe ML 3 ML ML 3 ML 2-3 ML 3 ML Gabapentin Gabapentin No 1{capsu BID Gabapentin 300 MG 300 MG le} 300 MG Pantoprazol Pantoprazol No 1{table QD Pantoprazo e Sodium 40 e Sodium 40 t} le Sodium MG MG 40 MG Spironolact Spironolact No 1{table QD Spironolac one 25 MG one 25 MG t_with_ tone 25 MG food} Belsomra 10 Belsomra 10 No 1{table QD Belsomra MG MG t_at_be 10 MG dtime_a s_neede d} Allopurinol Allopurinol No 1{table QD Allopurino 100 MG 100 MG t} l 100 MG Rexulti 2 Rexulti 2 No Rexulti 2 MG MG MG Ultram 50 Ultram 50 No 1{table QID Ultram 50 MG MG t_as_ne MG eded} SUMAtriptan SUMAtriptan No SUMAtripta Succinate Succinate n 100 MG 100 MG Succinate 100 MG SEROquel 50 SEROquel 50 No 1{table QD SEROquel MG MG t} 50 MG Indomethaci Indomethaci No 1{capsu BID Indomethac n 50 MG n 50 MG le_with in 50 MG _food_o r_milk} Zinc Zinc No Zinc Sulfate 220 Sulfate 220 Sulfate (50 Zn) MG (50 Zn) MG 220 (50 Zn) MG Thiamine Thiamine No Thiamine HCl 100 MG HCl 100 MG HCl 100 MG Topiramate Topiramate No Topiramate 50 MG 50 MG 50 MG BD TB BD TB No BD TB Syringe 25G Syringe 25G Syringe X 5/8" 1 ML X 5/8" 1 ML 25G X 5/8" 1 ML Zofran ODT Zofran ODT No 1{table TID Zofran ODT 4 MG 4 MG t_on_th 4 MG e_tongu e_and_a llow_to _dissol ve} Xifaxan 550 Xifaxan 550 No 1{table BID Xifaxan MG MG t} 550 MG Benztropine Benztropine No 1{table QD Benztropin Mesylate Mesylate t_at_be e Mesylate 0.5 MG 0.5 MG dtime} 0.5 MG Cyanocobala Cyanocobala No Cyanocobal min 1000 min 1000 jameson 1000 MCG/ML MCG/ML MCG/ML Kristalose Kristalose No 1{packe Kristalose 20 GM 20 GM t} 20 GM Primidone Primidone No 1{table QD Primidone 50 MG 50 MG t} 50 MG Syringe 2-3 Syringe 2-3 No Syringe ML 3 ML ML 3 ML 2-3 ML 3 ML Gabapentin Gabapentin No 1{capsu BID Gabapentin 300 MG 300 MG le} 300 MG Pantoprazol Pantoprazol No 1{table QD Pantoprazo e Sodium 40 e Sodium 40 t} le Sodium MG MG 40 MG Spironolact Spironolact No 1{table QD Spironolac one 25 MG one 25 MG t_with_ tone 25 MG food} Belsomra 10 Belsomra 10 No 1{table QD Belsomra MG MG t_at_be 10 MG dtime_a s_neede d} Allopurinol Allopurinol No 1{table QD Allopurino 100 MG 100 MG t} l 100 MG Rexulti 2 Rexulti 2 No Rexulti 2 MG MG MG Ultram 50 Ultram 50 No 1{table QID Ultram 50 MG MG t_as_ne MG eded} SUMAtriptan SUMAtriptan No SUMAtripta Succinate Succinate n 100 MG 100 MG Succinate 100 MG SEROquel 50 SEROquel 50 No 1{table QD SEROquel MG MG t} 50 MG Indomethaci Indomethaci No 1{capsu BID Indomethac n 50 MG n 50 MG le_with in 50 MG _food_o r_milk} Zinc Zinc No Zinc Sulfate 220 Sulfate 220 Sulfate (50 Zn) MG (50 Zn) MG 220 (50 Zn) MG Thiamine Thiamine No Thiamine HCl 100 MG HCl 100 MG HCl 100 MG Topiramate Topiramate No Topiramate 50 MG 50 MG 50 MG BD TB BD TB No BD TB Syringe 25G Syringe 25G Syringe X 5/8" 1 ML X 5/8" 1 ML 25G X 5/8" 1 ML Zofran ODT Zofran ODT No 1{table TID Zofran ODT 4 MG 4 MG t_on_th 4 MG e_tongu e_and_a llow_to _dissol ve} Xifaxan 550 Xifaxan 550 No 1{table BID Xifaxan MG MG t} 550 MG Benztropine Benztropine No 1{table QD Benztropin Mesylate Mesylate t_at_be e Mesylate 0.5 MG 0.5 MG dtime} 0.5 MG Cyanocobala Cyanocobala No Cyanocobal min 1000 min 1000 jameson 1000 MCG/ML MCG/ML MCG/ML Kristalose Kristalose No 1{packe Kristalose 20 GM 20 GM t} 20 GM Primidone Primidone No 1{table QD Primidone 50 MG 50 MG t} 50 MG Syringe 2-3 Syringe 2-3 No Syringe ML 3 ML ML 3 ML 2-3 ML 3 ML Gabapentin Gabapentin No 1{capsu BID Gabapentin 300 MG 300 MG le} 300 MG Pantoprazol Pantoprazol No 1{table QD Pantoprazo e Sodium 40 e Sodium 40 t} le Sodium MG MG 40 MG Spironolact Spironolact No 1{table QD Spironolac one 25 MG one 25 MG t_with_ tone 25 MG food} Belsomra 10 Belsomra 10 No 1{table QD Belsomra MG MG t_at_be 10 MG dtime_a s_neede d} Allopurinol Allopurinol No 1{table QD Allopurino 100 MG 100 MG t} l 100 MG Rexulti 2 Rexulti 2 No Rexulti 2 MG MG MG Ultram 50 Ultram 50 No 1{table QID Ultram 50 MG MG t_as_ne MG eded} SUMAtriptan SUMAtriptan No SUMAtripta Succinate Succinate n 100 MG 100 MG Succinate 100 MG SEROquel 50 SEROquel 50 No 1{table QD SEROquel MG MG t} 50 MG Indomethaci Indomethaci No 1{capsu BID Indomethac n 50 MG n 50 MG le_with in 50 MG _food_o r_milk} Zinc Zinc No Zinc Sulfate 220 Sulfate 220 Sulfate (50 Zn) MG (50 Zn) MG 220 (50 Zn) MG Thiamine Thiamine No Thiamine HCl 100 MG HCl 100 MG HCl 100 MG Topiramate Topiramate No Topiramate 50 MG 50 MG 50 MG BD TB BD TB No BD TB Syringe 25G Syringe 25G Syringe X 5/8" 1 ML X 5/8" 1 ML 25G X 5/8" 1 ML Zofran ODT Zofran ODT No 1{table TID Zofran ODT 4 MG 4 MG t_on_ 4 MG e_tongu e_and_a llow_to _dissol ve} Xifaxan 550 Xifaxan 550 No 1{table BID Xifaxan MG MG t} 550 MG Benztropine Benztropine No 1{table QD Benztropin Mesylate Mesylate t_at_be e Mesylate 0.5 MG 0.5 MG dtime} 0.5 MG Cyanocobala Cyanocobala No Cyanocobal min 1000 min 1000 jameson 1000 MCG/ML MCG/ML MCG/ML Kristalose Kristalose No 1{packe Kristalose 20 GM 20 GM t} 20 GM Primidone Primidone No 1{table QD Primidone 50 MG 50 MG t} 50 MG Syringe 2-3 Syringe 2-3 No Syringe ML 3 ML ML 3 ML 2-3 ML 3 ML Gabapentin Gabapentin No 1{capsu BID Gabapentin 300 MG 300 MG le} 300 MG Pantoprazol Pantoprazol No 1{table QD Pantoprazo e Sodium 40 e Sodium 40 t} le Sodium MG MG 40 MG Spironolact Spironolact No 1{table QD Spironolac one 25 MG one 25 MG t_with_ tone 25 MG food} Belsomra 10 Belsomra 10 No 1{table QD Belsomra MG MG t_at_be 10 MG dtime_a s_neede d} Allopurinol Allopurinol No 1{table QD Allopurino 100 MG 100 MG t} l 100 MG Rexulti 2 Rexulti 2 No Rexulti 2 MG MG MG Ultram 50 Ultram 50 No 1{table QID Ultram 50 MG MG t_as_ne MG eded} SUMAtriptan SUMAtriptan No SUMAtripta Succinate Succinate n 100 MG 100 MG Succinate 100 MG SEROquel 50 SEROquel 50 No 1{table QD SEROquel MG MG t} 50 MG Indomethaci Indomethaci No 1{capsu BID Indomethac n 50 MG n 50 MG le_with in 50 MG _food_o r_milk} Zinc Zinc No Zinc Sulfate 220 Sulfate 220 Sulfate (50 Zn) MG (50 Zn) MG 220 (50 Zn) MG Thiamine Thiamine No Thiamine HCl 100 MG HCl 100 MG HCl 100 MG Topiramate Topiramate No Topiramate 50 MG 50 MG 50 MG BD TB BD TB No BD TB Syringe 25G Syringe 25G Syringe X 5/8" 1 ML X 58" 1 ML 25G X 58" 1 ML Zofran ODT Zofran ODT No 1{table TID Zofran ODT 4 MG 4 MG t_on_th 4 MG e_tongu e_and_a llow_to _dissol ve} Xifaxan 550 Xifaxan 550 No 1{table BID Xifaxan MG MG t} 550 MG Benztropine Benztropine No 1{table QD Benztropin Mesylate Mesylate t_at_be e Mesylate 0.5 MG 0.5 MG dtime} 0.5 MG Cyanocobala Cyanocobala No Cyanocobal min 1000 min 1000 jameson 1000 MCG/ML MCG/ML MCG/ML Kristalose Kristalose No 1{packe Kristalose 20 GM 20 GM t} 20 GM Primidone Primidone No 1{table QD Primidone 50 MG 50 MG t} 50 MG Syringe 2-3 Syringe 2-3 No Syringe ML 3 ML ML 3 ML 2-3 ML 3 ML Gabapentin Gabapentin No 1{capsu BID Gabapentin 300 MG 300 MG le} 300 MG Pantoprazol Pantoprazol No 1{table QD Pantoprazo e Sodium 40 e Sodium 40 t} le Sodium MG MG 40 MG Spironolact Spironolact No 1{table QD Spironolac one 25 MG one 25 MG t_with_ tone 25 MG food} Belsomra 10 Belsomra 10 No 1{table QD Belsomra MG MG t_at_be 10 MG dtime_a s_neede d} Allopurinol Allopurinol No 1{table QD Allopurino 100 MG 100 MG t} l 100 MG Rexulti 2 Rexulti 2 No Rexulti 2 MG MG MG Ultram 50 Ultram 50 No 1{table QID Ultram 50 MG MG t_as_ne MG eded} SUMAtriptan SUMAtriptan No SUMAtripta Succinate Succinate n 100 MG 100 MG Succinate 100 MG SEROquel 50 SEROquel 50 No 1{table QD SEROquel MG MG t} 50 MG Indomethaci Indomethaci No 1{capsu BID Indomethac n 50 MG n 50 MG le_with in 50 MG _food_o r_milk} Zinc Zinc No Zinc Sulfate 220 Sulfate 220 Sulfate (50 Zn) MG (50 Zn) MG 220 (50 Zn) MG Thiamine Thiamine No Thiamine HCl 100 MG HCl 100 MG HCl 100 MG Topiramate Topiramate No Topiramate 50 MG 50 MG 50 MG BD TB BD TB No BD TB Syringe 25G Syringe 25G Syringe X 5/8" 1 ML X 5/8" 1 ML 25G X 5/8" 1 ML Zofran ODT Zofran ODT No 1{table TID Zofran ODT 4 MG 4 MG t_on_th 4 MG e_tongu e_and_a llow_to _dissol ve} Primidone Primidone No 1{table QD Primidone 50 MG 50 MG t} 50 MG BD TB BD TB No BD TB Syringe 25G Syringe 25G Syringe X 5/8" 1 ML X 5/8" 1 ML 25G X 5/8" 1 ML Cyanocobala Cyanocobala No Cyanocobal min 1000 min 1000 jameson 1000 MCG/ML MCG/ML MCG/ML Rexulti 2 Rexulti 2 No Rexulti 2 MG MG MG Gabapentin Gabapentin No 1{capsu BID Gabapentin 300 MG 300 MG le} 300 MG Syringe 2-3 Syringe 2-3 No Syringe ML 3 ML ML 3 ML 2-3 ML 3 ML Thiamine Thiamine No Thiamine HCl 100 MG HCl 100 MG HCl 100 MG Zofran ODT Zofran ODT No 1{table TID Zofran ODT 4 MG 4 MG t_on_th 4 MG e_tongu e_and_a llow_to _dissol ve} Ultram 50 Ultram 50 No 1{table QID Ultram 50 MG MG t_as_ne MG eded} Xifaxan 550 Xifaxan 550 No 1{table BID Xifaxan MG MG t} 550 MG Kristalose Kristalose No 1{packe Kristalose 20 GM 20 GM t} 20 GM Topiramate Topiramate No Topiramate 50 MG 50 MG 50 MG Belsomra 10 Belsomra 10 No 1{table QD Belsomra MG MG t_at_be 10 MG dtime_a s_neede d} SEROquel 50 SEROquel 50 No 1{table QD SEROquel MG MG t} 50 MG Indomethaci Indomethaci No 1{capsu BID Indomethac n 50 MG n 50 MG le_with in 50 MG _food_o r_milk} Zinc Zinc No Zinc Sulfate 220 Sulfate 220 Sulfate (50 Zn) MG (50 Zn) MG 220 (50 Zn) MG Spironolact Spironolact No 1{table QD Spironolac one 25 MG one 25 MG t_with_ tone 25 MG food} Benztropine Benztropine No 1{table QD Benztropin Mesylate Mesylate t_at_be e Mesylate 0.5 MG 0.5 MG dtime} 0.5 MG Allopurinol Allopurinol No 1{table QD Allopurino 100 MG 100 MG t} l 100 MG Pantoprazol Pantoprazol No 1{table QD Pantoprazo e Sodium 40 e Sodium 40 t} le Sodium MG MG 40 MG SUMAtriptan SUMAtriptan No SUMAtripta Succinate Succinate n 100 MG 100 MG Succinate 100 MG Primidone Primidone No 1{table QD Primidone 50 MG 50 MG t} 50 MG BD TB BD TB No BD TB Syringe 25G Syringe 25G Syringe X 5/8" 1 ML X 5/8" 1 ML 25G X 5/8" 1 ML Cyanocobala Cyanocobala No Cyanocobal min 1000 min 1000 jameson 1000 MCG/ML MCG/ML MCG/ML Rexulti 2 Rexulti 2 No Rexulti 2 MG MG MG Gabapentin Gabapentin No 1{capsu BID Gabapentin 300 MG 300 MG le} 300 MG Syringe 2-3 Syringe 2-3 No Syringe ML 3 ML ML 3 ML 2-3 ML 3 ML Thiamine Thiamine No Thiamine HCl 100 MG HCl 100 MG HCl 100 MG Zofran ODT Zofran ODT No 1{table TID Zofran ODT 4 MG 4 MG t_on_th 4 MG e_tongu e_and_a llow_to _dissol ve} Ultram 50 Ultram 50 No 1{table QID Ultram 50 MG MG t_as_ne MG eded} Xifaxan 550 Xifaxan 550 No 1{table BID Xifaxan MG MG t} 550 MG Kristalose Kristalose No 1{packe Kristalose 20 GM 20 GM t} 20 GM Topiramate Topiramate No Topiramate 50 MG 50 MG 50 MG Belsomra 10 Belsomra 10 No 1{table QD Belsomra MG MG t_at_be 10 MG dtime_a s_neede d} SEROquel 50 SEROquel 50 No 1{table QD SEROquel MG MG t} 50 MG Indomethaci Indomethaci No 1{capsu BID Indomethac n 50 MG n 50 MG le_with in 50 MG _food_o r_milk} Zinc Zinc No Zinc Sulfate 220 Sulfate 220 Sulfate (50 Zn) MG (50 Zn) MG 220 (50 Zn) MG Spironolact Spironolact No 1{table QD Spironolac one 25 MG one 25 MG t_with_ tone 25 MG food} Benztropine Benztropine No 1{table QD Benztropin Mesylate Mesylate t_at_be e Mesylate 0.5 MG 0.5 MG dtime} 0.5 MG Allopurinol Allopurinol No 1{table QD Allopurino 100 MG 100 MG t} l 100 MG Pantoprazol Pantoprazol No 1{table QD Pantoprazo e Sodium 40 e Sodium 40 t} le Sodium MG MG 40 MG SUMAtriptan SUMAtriptan No SUMAtripta Succinate Succinate n 100 MG 100 MG Succinate 100 MG Gabapentin Gabapentin No 1{capsu BID Gabapentin 300 MG 300 MG le} 300 MG Ultram 50 Ultram 50 No 1{table QID Ultram 50 MG MG t_as_ne MG eded} SUMAtriptan SUMAtriptan No SUMAtripta Succinate Succinate n 100 MG 100 MG Succinate 100 MG Allopurinol Allopurinol No 1{table QD Allopurino 100 MG 100 MG t} l 100 MG Zinc Zinc No Zinc Sulfate 220 Sulfate 220 Sulfate (50 Zn) MG (50 Zn) MG 220 (50 Zn) MG Thiamine Thiamine No Thiamine HCl 100 MG HCl 100 MG HCl 100 MG Topiramate Topiramate No Topiramate 50 MG 50 MG 50 MG Primidone Primidone No 1{table QD Primidone 50 MG 50 MG t} 50 MG Benztropine Benztropine No 1{table QD Benztropin Mesylate Mesylate t_at_be e Mesylate 0.5 MG 0.5 MG dtime} 0.5 MG Pantoprazol Pantoprazol No 1{table QD Pantoprazo e Sodium 40 e Sodium 40 t} le Sodium MG MG 40 MG Xifaxan 550 Xifaxan 550 No 1{table BID Xifaxan MG MG t} 550 MG Cyanocobala Cyanocobala No Cyanocobal min 1000 min 1000 jameson 1000 MCG/ML MCG/ML MCG/ML Belsomra 10 Belsomra 10 No 1{table QD Belsomra MG MG t_at_be 10 MG dtime_a s_neede d} SEROquel 50 SEROquel 50 No 1{table QD SEROquel MG MG t} 50 MG BD TB BD TB No BD TB Syringe 25G Syringe 25G Syringe X 5/8" 1 ML X 5/8" 1 ML 25G X 5/8" 1 ML Syringe 2-3 Syringe 2-3 No Syringe ML 3 ML ML 3 ML 2-3 ML 3 ML Rexulti 2 Rexulti 2 No Rexulti 2 MG MG MG Zofran ODT Zofran ODT No 1{table TID Zofran ODT 4 MG 4 MG t_on_th 4 MG e_tongu e_and_a llow_to _dissol ve} Spironolact Spironolact No 1{table QD Spironolac one 25 MG one 25 MG t_with_ tone 25 MG food} Kristalose Kristalose No 1{packe Kristalose 20 GM 20 GM t} 20 GM Indomethaci Indomethaci No 1{capsu BID Indomethac n 50 MG n 50 MG le_with in 50 MG _food_o r_milk} Gabapentin Gabapentin No 1{capsu BID Gabapentin 300 MG 300 MG le} 300 MG Ultram 50 Ultram 50 No 1{table QID Ultram 50 MG MG t_as_ne MG eded} SUMAtriptan SUMAtriptan No SUMAtripta Succinate Succinate n 100 MG 100 MG Succinate 100 MG Allopurinol Allopurinol No 1{table QD Allopurino 100 MG 100 MG t} l 100 MG Zinc Zinc No Zinc Sulfate 220 Sulfate 220 Sulfate (50 Zn) MG (50 Zn) MG 220 (50 Zn) MG Thiamine Thiamine No Thiamine HCl 100 MG HCl 100 MG HCl 100 MG Topiramate Topiramate No Topiramate 50 MG 50 MG 50 MG Primidone Primidone No 1{table QD Primidone 50 MG 50 MG t} 50 MG Benztropine Benztropine No 1{table QD Benztropin Mesylate Mesylate t_at_be e Mesylate 0.5 MG 0.5 MG dtime} 0.5 MG Pantoprazol Pantoprazol No 1{table QD Pantoprazo e Sodium 40 e Sodium 40 t} le Sodium MG MG 40 MG Xifaxan 550 Xifaxan 550 No 1{table BID Xifaxan MG MG t} 550 MG Cyanocobala Cyanocobala No Cyanocobal min 1000 min 1000 jameson 1000 MCG/ML MCG/ML MCG/ML Belsomra 10 Belsomra 10 No 1{table QD Belsomra MG MG t_at_be 10 MG dtime_a s_neede d} SEROquel 50 SEROquel 50 No 1{table QD SEROquel MG MG t} 50 MG BD TB BD TB No BD TB Syringe 25G Syringe 25G Syringe X 5/8" 1 ML X 5/8" 1 ML 25G X 5/8" 1 ML Syringe 2-3 Syringe 2-3 No Syringe ML 3 ML ML 3 ML 2-3 ML 3 ML Rexulti 2 Rexulti 2 No Rexulti 2 MG MG MG Zofran ODT Zofran ODT No 1{table TID Zofran ODT 4 MG 4 MG t_on_th 4 MG e_tongu e_and_a llow_to _dissol ve} Spironolact Spironolact No 1{table QD Spironolac one 25 MG one 25 MG t_with_ tone 25 MG food} Kristalose Kristalose No 1{packe Kristalose 20 GM 20 GM t} 20 GM Indomethaci Indomethaci No 1{capsu BID Indomethac n 50 MG n 50 MG le_with in 50 MG _food_o r_milk} Sumatriptan Sumatriptan No Sumatripta Succinate Succinate n 100 MG 100 MG Succinate 100 MG Zofran ODT Zofran ODT No 1{table TID Zofran ODT 4 MG 4 MG t_on_th 4 MG e_tongu e_and_a llow_to _dissol ve} Seroquel 50 Seroquel 50 No 1{table QD Seroquel MG MG t} 50 MG Cyanocobala Cyanocobala No Cyanocobal min 1000 min 1000 jameson 1000 MCG/ML MCG/ML MCG/ML BD TB BD TB No BD TB Syringe 25G Syringe 25G Syringe X 5/8" 1 ML X 5/8" 1 ML 25G X 5/8" 1 ML Topiramate Topiramate No Topiramate 50 MG 50 MG 50 MG Xifaxan 550 Xifaxan 550 No 1{table BID Xifaxan MG MG t} 550 MG Indomethaci Indomethaci No Indomethac n 50 MG n 50 MG in 50 MG Gabapentin Gabapentin No TID Gabapentin 100 MG 100 MG 100 MG Furosemide Furosemide No 1{table QD Furosemide 40 MG 40 MG t} 40 MG Syringe 2-3 Syringe 2-3 No Syringe ML 3 ML ML 3 ML 2-3 ML 3 ML Pantoprazol Pantoprazol No 1{table QD Pantoprazo e Sodium 40 e Sodium 40 t} le Sodium MG MG 40 MG Thiamine Thiamine No Thiamine HCl 100 MG HCl 100 MG HCl 100 MG Belsomra 10 Belsomra 10 No 1{table QD Belsomra MG MG t_at_be 10 MG dtime_a s_neede d} Spironolact Spironolact No 1{table QD Spironolac one 25 MG one 25 MG t_with_ tone 25 MG food} Allopurinol Allopurinol No 1{table QD Allopurino 100 MG 100 MG t} l 100 MG Indomethaci Indomethaci No 1{capsu BID Indomethac n 50 MG n 50 MG le_with in 50 MG _food_o r_milk} Zinc Zinc No Zinc Sulfate 220 Sulfate 220 Sulfate (50 Zn) MG (50 Zn) MG 220 (50 Zn) MG Rexulti 2 Rexulti 2 No Rexulti 2 MG MG MG Ultram 50 Ultram 50 No 1{table QID Ultram 50 MG MG t_as_ne MG eded} Sodium Sodium No Sodium Bicarbonate Bicarbonate Bicarbonat 650 MG 650 MG e 650 MG ProAir HFA ProAir HFA No ProAir HFA 108 (90 [phone] (90 108 (90 Base) Base) Base) MCG/ACT MCG/ACT MCG/ACT Folic Acid Folic Acid No 1{table QD Folic Acid 1 MG 1 MG t} 1 MG Rexulti 2 Rexulti 2 No Rexulti 2 MG MG MG Immunizations Ordered Filled Immunization Date Status Comments [facility] e Immunization Name Name Influenza Virus 2021-04-12 Completed [facility] Vaccine 00:00[facility]00 [facility] Influenza Virus 2021-04-12 Completed [facility] Vaccine 00:00:00 [facility] Influenza Virus 2021-04-12 Completed [facility] Vaccine 00:00:00 [facility] SARS-COV-2 COVID-19 2020-12-14 Completed Unive rsity of YANIRA/J&J VACCINE 00:00:00 [facility] SARS-COV-2 COVID-19 2020-12-14 Completed [facility]ive rs[facility] of YANIRA/J&J VACCINE 00:00:00 [facility] SARS-COV-2 COVID-19 2020-12-14 Completed Unive rsity of YANIRA/J&J VACCINE 00:00:00 [facility] Ketorolac (Toradol) Ketorolac (Toradol) 2020-04-04 [facility] per 15mg 11:19:00 [facility] Ketorolac (Toradol) Ketorolac (Toradol) 2020-04-04 Completed [facility] - per 15mg per 15mg 11:19:00 [facility] Ketorolac (Toradol) Ketorolac (Toradol) 2020-04-04 Completed [facility] - per 15mg per 15mg 11:19:00 [facility] Ketorolac (Toradol) Ketorolac (Toradol) 2020-04-04 Completed [facility] - per 15mg per 15mg 11:19:00 [facility] Ketorolac (Toradol) Ketorolac (Toradol) 2020-04-04 Completed [facility] - per 15mg per 15mg 11:19:00 [facility] Ketorolac (Toradol) Ketorolac (Toradol) 2020-04-04 Completed [facility] - per 15mg per 15mg 11:19:00 [facility] Ketorolac (Toradol) Ketorolac (Toradol) 2020-04-04 Completed [facility] - per 15mg per 15mg 11:19:00 [facility] Ketorolac (Toradol) Ketorolac (Toradol) 2020-04-04 Completed [facility] - per 15mg per 15mg 11:19:00 [facility] Vitamin B12 Vitamin B12 2019-07-16 [facility] - (Cyanocobalamin) (Cyanocobalamin) 13:54:00 [facility] Vitamin B12 Vitamin B12 2019-07-16 Com[facility] (Cyanocobalamin) (Cyanocobalamin) 13:54:00 [facility] Vitamin B12 Vitamin B12 2019-07-16 Com[facility] (Cyanocobalamin) (Cyanocobalamin) 13:54:00 [facility] Vitamin B12 Vitamin B12 2019-07-16 Com[facility] (Cyanocobalamin) (Cyanocobalamin) 13:54:00 [facility] Vitamin B12 Vitamin B12 2019-07-16 Com[facility] (Cyanocobalamin) (Cyanocobalamin) 13:54:00 [facility] Vitamin B12 Vitamin B12 2019-07-16 Com[facility] (Cyanocobalamin) (Cyanocobalamin) 13:54:00 [facility] Vitamin B12 Vitamin B12 2019-07-16 Com[facility] (Cyanocobalamin) (Cyanocobalamin) 13:54:00 [facility] Vitamin B12 Vitamin B12 2019-07-16 Completed [facility] (Cyanocobalamin) (Cyanocobalamin) 13:54:00 [facility] Vitamin B12 Vitamin B12 2019-04-09 Completed [facility] (Cyanocobalamin) (Cyanocobalamin) 14:26:00 [facility] Vitamin B12 Vitamin B12 2019-04-09 Completed [facility] (Cyanocobalamin) (Cyanocobalamin) 14:26:00 [facility] Vitamin B12 Vitamin B12 2019-04-09 Completed [facility] (Cyanocobalamin) (Cyanocobalamin) 14:26:00 [facility] Vitamin B12 Vitamin B12 2019-04-09 Completed [facility] (Cyanocobalamin) (Cyanocobalamin) 14:26:00 [facility] Vitamin B12 Vitamin B12 2019-04-09 Completed [facility] (Cyanocobalamin) (Cyanocobalamin) 14:26:00 [facility] Vitamin B12 Vitamin B12 2019-04-09 Completed [facility] (Cyanocobalamin) (Cyanocobalamin) 14:26:00 I [facility] Vitamin B12 Vitamin B12 2019-04-09 Completed [facility] (Cyanocobalamin) (Cyanocobalamin) 14:26:00 I [facility] Vitamin B12 Vitamin B12 2019-04-09 Completed [facility] (Cyanocobalamin) (Cyanocobalamin) 14:26:00 [facility] Influenza (IM) 2018-04-21 Completed [facility] Pres[facility] 00:[facility]:00 [facility] Influenza Virus 2018-04-21 Completed [facility] of Vaccine (3+ yrs) 00:00:00 [facility] Influenza Virus 2018-04-21 Completed [facility] of Vaccine (3+ yrs) 00:00:00 [facility] Influenza Virus 2018-04-21 Completed [facility] of Vaccine (3+ yrs) 00:00:00 [facility] Pneumococcal 2016-05-08 Completed [facility] Conjugate 13-Valent 00:00:00 Hospi mateo FLUCELVAX QUAD PF 2016-05-[address] 00:[facility]00 [facility] Pneumococcal 13 2016-05-08 Completed [facility] of Conjugate, PCV13 00:00:00 [facility] dical (Prevnar 13) Branch Pneumococcal 13 2016-05-08 Completed Universit [facility] of Conjugate, PCV13 00:00:00 [facility] dical (Prevnar 13) Branch Pneumococcal 13 2016-05-08 Completed Universit [facility] of Conjugate, PCV13 00:00:00 [facility] dical (Prevnar 13) Branch Vital Signs Vital Name Observation Time Observation Value Comments Source Systolic blood 2021-11-16 18:59:00 111 mm[Hg] Univer sity pressure [facility] Diastolic blood 2021-11-16 18:59:00 74 mm[Hg] [facility] Heart rate 2021-11-16 18:59:00 75 /min Universi ty [facility] Body temperature 2021-11-16 18:59:00 [facility].67 [facility] height 2021-11-16 18:59:00 149.9 cm [facility] Body weight 2021-11-16 18:59:00 80.559 kg [facility] BMI 2021-11-16 18:59:00 35.87 kg/m2 [facility] height 2021-10-16 15:30:00 59 [in_i] Common [facility] weight 2021-10-16 15:30:00 176.5 [lb_av] Common [facility] temperature 2021-10-16 15:30:00 97.2 [degF] [facility] bmi 2021-10-16 15:30:00 35.64 kg/m2 [facility] oximetry 2021-10-16 15:30:00 100 % [facility] respiratory rate 2021-10-16 15:30:00 18 /min Comm on [facility] blood pressure 2021-10-16 15:30:00 123 mm[Hg] Common [facility] - systolic [facility] blood pressure 2021-10-16 15:30:00 65 mm[Hg] Common [facility] - diastolic [facility] height 2021-09-25 10:40:00 59 [in_i] [facility] weight 2021-09-25 10:40:00 190 [lb_av] Common [facility] temperature 2021-09-25 10:40:00 97.4 [degF] Common [facility] bmi 2021-09-25 10:40:00 38.37 kg/m2 [facility] blood pressure 2021-09-25 10:40:00 125 mm[Hg] Common [facility] - systolic [facility] blood pressure 2021-09-25 10:40:00 76 mm[Hg] Common [facility] - diastolic [facility] HEIGHT 2021-09-02 15:44:00 149.9 cm WEIGHT 2021-09-02 15:44:00 87.091 kg HEIGHT 2021-09-02 15:44:00 149.9 cm WEIGHT 2021-09-02 15:44:00 87.091 kg HEIGHT 2021-09-02 15:44:00 149.9 cm WEIGHT 2021-09-02 15:44:00 87.091 kg height 2021-04-26 10:30:00 59 [in_i] [facility] weight 2021-04-26 10:30:00 215 [lb_av] Common [facility] temperature 2021-04-26 10:30:00 98 [degF] [facility] bmi 2021-04-26 10:30:00 43.42 kg/m2 [facility] blood pressure 2021-04-26 10:30:00 121 mm[Hg] [facility] - systolic [facility] blood pressure 2021-04-26 10:30:00 70 mm[Hg] [facility] - diastolic [facility] height 2021-04-26 14:20:00 59 [in_i] Common S [facility] weight 2021-04-26 14:20:00 215 [lb_av] [facility] temperature 2021-04-26 14:20:00 98 [degF] [facility] S [facility] bmi 2021-04-26 14:20:00 43.42 kg/m2 [facility] oximetry 2021-04-26 14:20:00 100 % [facility] S [facility] blood pressure 2021-04-26 14:20:00 121 mm[Hg] [facility] - systolic [facility] blood pressure 2021-04-26 14:20:00 70 mm[Hg] [facility] - diastolic [facility] Systolic blood 2021-09-16 08:00:00 98 mm[Hg] [facility] Diastolic blood 2021-09-16 08:00:00 49 mm[Hg] [facility] Heart rate 2021-09-16 08:00:00 89 /min [facility] Body temperature 2021-09-16 08:00:00 36.17 Georgette [facility] Respiratory rate 2021-09-16 08:00:00 18 /min [facility] Oxygen saturation in 2021-09-16 08:00:00 99 /min [facility] Arterial blood by Medical Ce nter Pulse oximetry Systolic blood 2021-09-11 19:42:00 125 mm[Hg] [facility] Diastolic blood 2021-09-11 19:42:00 60 mm[Hg] [facility] Heart rate 2021-09-11 19:42:00 98 /min [facility] Body temperature 2021-09-11 19:42:00 35.67 Georgette [facility] Respiratory rate 2021-09-11 19:42:00 18 /min [facility] Oxygen saturation in 2021-09-11 19:42:00 100 /min [facility] Arterial blood by Medical Ce [facility]ter Pulse oximetry Body height 2021-09-02 15:44:00 149.9 cm [facility] Body weight 2021-09-02 15:44:00 87.091 kg [facility] BMI 2021-09-02 15:44:00 38.78 kg/m2 [facility] Systolic blood 2021-08-31 06:30:00 119 mm[Hg] [facility] pressure Diastolic blood 2021-08-31 06:30:00 68 mm[Hg] [facility] pressure Heart rate 2021-08-31 06:30:00 70 /min [facility] Respiratory rate 2021-08-31 06:30:00 16 /min [facility] Oxygen saturation in 2021-08-31 06:30:00 97 /min [facility] Arterial blood by Pulse oximetry Body temperature 2021-08-31 04:04:09 36.83 Georgette [facility] Body height 2021-08-31 04:04:00 149.9 cm [facility] Body weight 2021-08-31 04:04:00 89.359 kg [facility] BMI 2021-08-31 04:04:00 39.79 [facility]/m2 [facility] Procedure Date / Time Performing Clinician Source Performed EXTERNAL PROVIDER RECORDS 2022-02-08 05:01:00 Doctor Unassigned, No [facility] HEPATITIS A ANTIBODY, IGM 2022-01-23 15:13:00 [facility] HEPATITIS B SURFACE 2022-01-23 15:13:00 [facility] HEPATITIS B CORE ANTIBODY, 2022-01-23 15:13:00 C [facility] HEPATITIS C ANTIBODY 2022-01-23 15:13:00 [facility] HEPATIC FUNCTION PANEL 2021-09-15 05:20:00 [facility] W/[facility]T [facility] & AUTO 2021-09-15 05:20[facility] 2021-09-15 05:20:00 KaimNiya [facility] BASIC METABOLIC PANEL 2021-09-15 05:20:00 KaimNiyaison C [facility] CBC W/PLT COUNT & AUTO 2021-09-15 05:20:00 Niya [place] [facility] CT ABDOMEN/PELVIS WITHOUT 2021-09-15 00:49:00 Kendy Hall [facility] IV CONTRAST [facility] CBC W/PLT COUNT & AUTO 2021-09-14 08:36:00 [facility] W/PLT COUNT & AUTO 2021-09-14 08:36:00 KaimNiya [facility] HEPATIC FUNCTION PANEL 2021-09-14 07:35:00 [facility] PROTHROMBIN TIME/INR 2021-09-14 07:35:00 KaNiya rm [facility] BASIC METABOLIC PANEL 2021-09-14 07:35:00 KaimJessicae Cindy C [facility] HEPATIC FUNCTION PANEL 2021-09-13 07:14:00 KaimNiya [facility] CBC W/PLT COUNT & AUTO 2021-09-13 07:14:00 KaimNiya [facility] PROTHROMBIN TIME/INR 2021-09-13 07:14:00 LizzimNiya [facility] BASIC METABOLIC PANEL 2021-09-13 07:14:00 LizzimHenryNiyaraquel White C [facility] CBC W/PLT COUNT & AUTO 2021-09-13 07:14:00 [facility] 2021-09-12 04:23:00 KaimNiya [facility] CBC W/PLT COUNT & AUTO 2021-09-12 04:23:00 LizzimHenryNiya [facility] PROTHROMBIN TIME/INR 2021-09-12 04:23:00 Lizzim Niya Cindy [facility] BASIC METABOLIC PANEL 2021-09-12 04:23:00 Lizzim Inyaraquel White [facility] MAGNESIUM 2021-09-12 04:23:00 Selma Lu [facility] VITAMIN B12 2021-09-12 04:23:00 [facility] D, 25-HYDROXY 2021-09-12 04:23:00 Bradley [facility] C-REACTIVE PROTEIN 2021-09-12 04:23:00 Mirna [facility] CBC W/PLT COUNT & AUTO 2021-09-12 04:23:00 Kaim Niya [facility] HEPATIC FUNCTION PANEL 2021-09-11 05:33:00 Kaim, Niya [facility] CBC W/PLT COUNT & AUTO 2021-09-11 05:33:00 Kaim Niya [facility] PROTHROMBIN TIME/INR 2021-09-11 05:33:00 [facility] METABOLIC [facility] (7) 2021-09-11 05:33:00 Niya [place] on [facility] MAGNESIUM 2021-09-11 05:33:00 Selma Lu [facility] CBC W/PLT COUNT & AUTO 2021-09-11 05:33:00 [facility]EL 2021-09-10 06:52:00 [facility] CBC W/PLT COUNT & AUTO 2021-09-10 06:52[facility]00 [facility]/INR 2021-09-10 06:52:00 LizzjagHenryNiya Cindy [facility] [facility] BASIC METABOLIC PANEL (7) 2021-09-10 06:52:00 KajagHenryNiya Allalireza on [facility] MAGNESIUM 2021-09-10 06:52:00 Selma Lu [facility] CBC W/PLT COUNT & AUTO 2021-09-10 06:52:00 KaHenry rmliraquel White [facility] HEPATIC FUNCTION PANEL 2021-09-09 05:51:00 [facility] CBC W/PLT COUNT & AUTO 2021-09-09 05:51:00 LizzjagNiya [facility] PROTHROMBIN TIME/INR 2021-09-09 05:51:00 Mitzi Niyaraquel White [facility] BASIC METABOLIC PANEL (7) 2021-09-09 05:51:00 KaimHenryNiya Allalireza [facility] CBC W/PLT COUNT & AUTO 2021-09-09 05:51:00 Lizzjag Niya [facility] (CELLAVISION MANUAL DIFF) 2021-09-09 05:51:00 Lizzjag Niya Shanalireza [facility] AMMONIA 2021-09-08 10:54:00 Selma Lu [facility] PHOSPHORUS 2021-09-08 05:14:00 Zara Mason [facility] HEPATIC FUNCTION PANEL 2021-09-08 05:14:00 Kajag Niyaraquel White [facility] CBC W/PLT COUNT & AUTO 2021-09-08 05:14:00 Lzizjag Niya Whtie [facility] PROTHROMBIN TIME/INR 2021-09-08 05:14:00 Mitzi Niyalilian White [facility] BASIC METABOLIC PANEL (7) 2021-09-08 05:14:00 Kajag Niyalilian Haile on [facility] CBC W/PLT COUNT & AUTO 2021-09-08 05:14:00 Mitzi Niya Cindy [facility] (CELLAVISION MANUAL DIFF) 2021-09-08 05:14:00 Niya Cartagena [facility] PHOSPHORUS 2021-09-07 05:37:00 Zara Mason [facility] HEPATIC FUNCTION PANEL 2021-09-07 05:37:00 Kajag Niya [facility] CBC W/PLT COUNT & AUTO 2021-09-07 05:37:00 Lizzjag Niyaraquel White [facility] PROTHROMBIN TIME/INR 2021-09-07 05:37:00 Mitzi Niyalilian White [facility] BASIC METABOLIC PANEL (7) 2021-09-07 05:37:00 Mitzi Niyalilian Haile [facility] CBC W/PLT COUNT & AUTO 2021-09-07 05:37:00 Lizzjag Niya Cindy [facility] (CELLAVISION MANUAL DIFF) 2021-09-07 05:37:00 Mitzi Niyalilian Haile [facility] PROTHROMBIN TIME/INR 2021-09-06 06:37:00 Mitzi Niyalilian White [facility] BASIC METABOLIC PANEL (7) 2021-09-06 06:37:00 Mable Mason i [facility] PHOSPHORUS 2021-09-06 06:37:00 Zara Mason [facility] PROTHROMBIN TIME/INR 2021-09-05 14:31:00 Niya Cartagena CH [facility] BASIC METABOLIC PANEL (7) 2021-09-05 14:31:00 Juve Masonin maverick [facility] PHOSPHORUS 2021-09-05 14:31:00 Isabella, Zara [facility] CBC W/PLT COUNT & AUTO 2021-09-05 14:31:00 Zara Mason [facility] HEPATIC FUNCTION PANEL 2021-09-05 14:31:[address] [facility] CBC W/PLT COUNT & AUTO 2021-09-05 14:31:00 Isabella Zara C [facility] (CELLAVISION MANUAL DIFF) 2021-09-05 14:31:00 [facility] C. DIFFICILE GDH TOXIN 2021-09-04 11:52:00 Jaqueline Vitale [facility] CT ABDOMEN/PELVIS WITH IV 2021-09-04 09:03:00 Mirian Goodman [facility] CONTRAST [facility] CHEST WITH IV CONTRAST 2021-09-04 09:03:00 Mable Mason [facility] CBC W/PLT COUNT & AUTO 2021-09-04 04:39:00 Nia Lawrence [facility] COMPREHENSIVE METABOLIC 2021-09-04 04:39:00 Nia Lawrence [facility] MAGNESIUM 2021-09-04 04:39:00 Nia Lawrence [facility] PHOSPHORUS 2021-09-04 04:39:00 Nia Lawrence [facility] CBC W/PLT COUNT & AUTO 2021-09-04 04:39:00 Nia Lawrence [facility] (CELLAVISION MANUAL DIFF) 2021-09-04 04:39:00 Nia Lawrence sa [facility] HEPATITIS A ANTIBODY, IGG 2021-09-03 12:02:00 Juve Masonin i [facility] HEPATITIS B CORE ANTIBODY, 2021-09-03 12:02:00 Laura Mason ni [facility] TOTAL [facility] HEPATITIS B SURFACE 2021-09-03 12:02:00 Zara Mason [facility] ANTIBODY [facility] HEPATITIS B SURFACE 2021-09-03 12:02:00 Zara Mason [facility] ANTIGEN [facility] HEPATITIS C ANTIBODY 2021-09-03 12:02:00 Zara Mason [facility] CBC W/PLT COUNT & AUTO 2021-09-03 12:01:00 Nia Lawrence [facility] COMPREHENSIVE METABOLIC 2021-09-03 12:01:00 Nia Lawrence [facility] MAGNESIUM 2021-09-03 12:01:00 Nia Lawrence [facility] PHOSPHORUS 2021-09-03 12:01:00 Nia Lawrence [facility] PROTHROMBIN TIME/INR 2021-09-03 12:01:00 Jr White [facility] CBC W/PLT COUNT & AUTO 2021-09-03 12:01:00 Nia Lawrence [facility] (CELLAVISION MANUAL DIFF) 2021-09-03 12:01:00 Nia Lawrence sa [facility] BLOOD CULTURE 2021-09-03 11:59:00 Nia Lawrence [facility] OVA AND PARASITE 2021-09-02 09:44:00 Troy Awadil [facility] GI PATHOGEN PROFILE BY PCR 2021-09-02 09:44:00 Troy Awad il [facility] BLOOD CULTURE 2021-09-02 06:03:00 Nia Lawrence [facility] CBC W/PLT COUNT & AUTO 2021-09-02 06:03:00 Nia Lawrence [facility] COMPREHENSIVE METABOLIC 2021-09-02 06:03:00 Nia Lawrence [facility] PANEL [facility] MAGNESIUM 2021-09-02 06:03:00 Nia Lawrence [facility] PHOSPHORUS 2021-09-02 06:03:00 Nia Lawrence [facility] C-REACTIVE PROTEIN 2021-09-02 06:03:00 Nia Lawrence [facility] CBC W/PLT COUNT & AUTO 2021-09-02 06:03:00 Nia Lawrence [facility] (CELLAVISION MANUAL DIFF) 2021-09-02 06:03:00 Nia Lawrence sa [facility] IRON, TIBC, % SAT. 2021-09-02 06:01:00 Nia Lawrence [facility] (WITHOUT FERRITIN) [facility] VITAMIN B12 AND FOLATE 2021-09-02 06:01:00 Nia Lawrence [facility] CT BRAIN WITHOUT IV 2021-09-02 02:39:00 Nia Lawrence [facility] CONTRAST [facility] US ABDOMEN LIMITED 2021-09-02 02:09:00 Nia Lawrencessa [facility] URINE CULTURE 2021-09-02 01:29:00 Nia Lawrence [facility] URINALYSIS W/ REFLEX URINE 2021-09-02 01:29:[address] [facility] XR CHEST 1 VIEW PORTABLE / 2021-09-02 01:02:00 Nia Lawrence [facility] BEDSIDE [facility] CBC W/PLT COUNT & AUTO 2021-09-01 22:55:00 Nia Lawrence [facility] LACTIC ACID, VENOUS 2021-09-01 22:55:00 Nia Lawrence [facility] PT/APTT 2021-09-01 22:55:00 Nia Lawrence [facility] HEPATIC FUNCTION PANEL 2021-09-01 22:55:00 [facility]OLIC PANEL (7) 2021-09-01 22:55:00 Nia Lawrence [facility] MAGNESIUM 2021-09-01 22:55:00 Nia Lawrence [facility] PHOSPHORUS 2021-09-01 22:55:00 Nia Lawrence [facility] CBC W/PLT COUNT & AUTO 2021-09-01 22:55:00 Nia Lawrence [facility] (CELLAVISION MANUAL DIFF) 2021-09-01 22:55:00 Nia Lawrence [facility] POCT-GLUCOSE METER 2021-09-01 22:36:00 Lacey Pan [facility] CT ABDOMEN PELVIS WO 2021-08-31 05:50:00 [facility] CONTRAST [facility] HC COMPLETE BLD COUNT 2021-08-31 04:21:00 [facility] W/AUTO DIFF [facility] COMPREHENSIVE METABOLIC 2021-08-31 04:21:00 [facility] PANEL [facility] LACTIC ACID, I-STAT 2021-08-31 04:21:00 [facility] ESTIMATED GFR 2021-08-31 04:21:00 [facility] SPIROMETRY, DIFFUSION, 2021-08-25 19:27:26 [facility] LUNG VOLUMES, MIPS/MEPS XR CHEST 2 VW 2021-08-25 18:00:20 [facility] XR PANOREX 2021-08-25 17:59:56 [facility] POC GLUCOSE 2021-08-25 13:51:00 [facility] SALEEM-POSEY VIRUS 2021-08-25 11:08:00 [facility] ANTIBODY TEST HC COMPLETE BLD COUNT 2021-08-25 11:08:00 Li, Jennifer [facility] W/AUTO DIFF COMPREHENSIVE METABOLIC 2021-08-25 11:08:00 Jennifer Ghosh [facility] PANEL PROTHROMBIN TIME WITH INR 2021-08-25 11:08:00 [facility] Ghosh [facility] ESTIMATED GFR 2021-08-25 11:08:00 Jennifer Ghosh Ho spital POC GLUCOSE 2021-08-25 03:18:00 Jennifer Ghosh Ho spital POC GLUCOSE 2021-08-25 00:22:00 Jennifer Ghosh Ho spital POC GLUCOSE 2021-08-24 19:43:00 Jennifer Ghoshtal CREATININE LEVEL, URINE, 2021-08-24 18:13:00 Jennifer Ghosh [facility] TIMED PROTEIN, URINE, TIMED 2021-08-24 18:13:00 Jennifer Ghosh [facility] CV SELECTIVE CORONARY 2021-08-24 16:44:00 Cabrera Fierro [facility] ANGIOGRAPHY [place] HC COMPLETE BLD COUNT 2021-08-24 11:01:00 [facility]O DIFF [place] BASIC METABOLIC PANEL 2021-08-24 11:01:00 [facility] 2021-08-24 11:01:00 [facility] [place] MAGNESIUM LEVEL 2021-08-24 11:01:00 Alma Girard [facility] PROTHROMBIN TIME WITH INR 2021-08-24 11:01:00 [facility] [place] ESTIMATED GFR 2021-08-24 11:01:00 Alma Girard [facility] POC GLUCOSE 2021-08-24 03:07:00 Jennifer Ghosh spital POC GLUCOSE 2021-08-24 00:11:00 Jennifer Ghosh spimateo COVID-19 QUALITATIVE 2021-08-23 22:15:00 Dayo Moeller [facility] RT-PCR POC GLUCOSE 2021-08-23 19:17:00 Jennifer Ghosh Ho spital POC GLUCOSE 2021-08-23 14:05:00 Jennifer Ghosh shane HC COMPLETE BLD COUNT 2021-08-23 11:49:00 [facility] W/AUTO DIFF [facility] BASIC METABOLIC PANEL 2021-08-23 11:49:00 [facility] HEPATIC FUNCTION PANEL 2021-08-23 11:49:00 [facility] [place] MAGNESIUM LEVEL 2021-08-23 11:49:00 [facility] PROTHROMBIN TIME WITH INR 2021-08-23 11:49:00 [facility] ALPHA FETOPROTEIN 2021-08-23 11:49:00 [facility] ALPHA-1 ANTITRYPSIN LEVEL 2021-08-23 11:49:00 [facility] ANTI SMOOTH MUSCLE AB 2021-08-23 11:49:00 [facility] SCREEN C-REACTIVE PROTEIN 2021-08-23 11:49:00 [facility] CANCER ANTIGEN 125 2021-08-23 11:49:00 [facility] CANCER ANTIGEN 19-9 2021-08-23 11:49:00 [facility] CARCINOEMBRYONIC ANTIGEN 2021-08-23 11:49:00 [facility] (CEA) CERULOPLASMIN LEVEL 2021-08-23 11:49:00 [facility] CORTISOL LEVEL, RANDOM 2021-08-23 11:49:00 [facility] CORTISOL, FREE BY 2021-08-23 11:49:00 [facility] ED/LC-MS/MS CYTOMEGALOVIRUS AB, IGG 2021-08-23 11:49:00 [facility] CYTOMEGALOVIRUS AB, IGM 2021-08-23 11:49:00 [facility] DRUG KIM 9, SER/THAIS, SCRN 2021-08-23 11:49:00 [facility] W/RFLX TO CONF FERRITIN LEVEL 2021-08-23 11:49:00 [facility] FIBRINOGEN 2021-08-23 11:49:00 [facility] HEPATITIS A ANTIBODY IGM 2021-08-23 11:49:00 [facility] HEPATITIS A ANTIBODY TOTAL 2021-08-23 11:49:00 [facility] HEPATITIS B CORE ANTIBODY 2021-08-23 11:49:00 [facility] TOTAL HEPATITIS B SURFACE 2021-08-23 11:49:00 [facility] ANTIBODY HEPATITIS B SURFACE 2021-08-23 11:49:00 [facility] ANTIGEN HEPATITIS C ANTIBODY 2021-08-23 11:49:00 [facility] HIV AG/AB COMBINATION 2021-08-23 11:49:00 [facility] HIV-1 RNA, QUALITATIVE TMA 2021-08-23 11:49:00 [facility] HLA TRANSPLANT EVALUATION 2021-08-23 11:49:00 [facility] LIPID PANEL 2021-08-23 11:49:00 [facility] BARBITURATES, S/P, QUANT 2021-08-23 11:49:00 [facility] PARTIAL THROMBOPLASTIN 2021-08-23 11:49:00 [facility] TIME (PTT) PHOSPHATIDYLETHANOL, BLOOD 2021-08-23 11:49:00 [facility] PHOSPHORUS LEVEL 2021-08-23 11:49:00 [facility] PREALBUMIN LEVEL 2021-08-23 11:49:00 [facility] SERUM ELECTROPHORESIS 2021-08-23 11:49:00 [facility] SYPHILIS TREPONEMA SCREEN 2021-08-23 11:49:00 [facility] WITH RPR CONFIRMATION (REVERSE ALGORITHM) T3, FREE 2021-08-23 11:49:00 [facility] TB T-SPOT 2021-08-23 11:49:00 [facility] TOTAL IRON BINDING 2021-08-23 11:49:00 [facility] CAPACITY ZINC LEVEL, SERUM 2021-08-23 11:49:00 [facility] ESTIMATED GFR 2021-08-23 11:49:00 Alma Girard SINGLE ANTIGEN BEADS 2021-08-23 11:49:00 [facility] C1Q CLASS 1 & 2 ANTIBODY 2021-08-23 11:49:[address] [facility] [address] CHEST WO CONTRAST 2021-08-23 04:25:00 [facility] POC GLUCOSE 2021-08-23 02:55:00 Jennifer Ghosh US CAROTID DUPLEX 2021-08-23 02:40:00 [facility] BILATERAL TTE COMPLETE, WO CONTRAST, 2021-08-22 23:47:00 [facility] W AGITATED SALINE ([id number]) US ABDOMEN COMPLETE 2021-08-22 22:30:00 [facility] ECG 12-LEAD 2021-08-22 21:31:09 [facility] POC GLUCOSE 2021-08-22 13:43:00 Jennifer Ghosh HC COMPLETE BLD COUNT 2021-08-22 10:59:00 [facility] W/AUTO DIFF [facility] BASIC METABOLIC PANEL 2021-08-22 10:59:00 [facility] HE[facility] FUNCTION PANEL 2021-08-22 10:59:00 [facility] MAGNESIUM LEVEL 2021-08-22 10:59:00 Alma Girard PHOSPHORUS LEVEL 2021-08-22 10:59:00 Alma Girard ospimateo Self PROTHROMBIN TIME WITH INR 2021-08-22 10:59:[address] [facility] [place] [place] ESTIMATED GFR 2021-08-22 10:59:00 Alma Girard spital [place] POC GLUCOSE 2021-08-22 03:06:00 Jennifer Ghosh spital POC GLUCOSE 2021-08-22 00:27:00 Jennifer Ghosh spital POC GLUCOSE 2021-08-21 19:09:00 Jennifer Ghosh Ho spital POC GLUCOSE 2021-08-21 13:46:00 Alma Girard Ho spital [facility] HC COMPLETE BLD COUNT 2021-08-21 10:56:00 Ting Pierson [facility]/AUTO DIFF [facility] BASIC METABOLIC PANEL 2021-08-21 10:56:00 Ting Dangelo [facility] HEPATIC FUNCTION PANEL 2021-08-21 10:56:00 [facility] MAGNESIUM LEVEL 2021-08-21 10:56:00 Alma Girard spital [place] PHOSPHORUS LEVEL 2021-08-21 10:56:00 Alma Girard [facility] PROTHROMBIN TIME WITH INR 2021-08-21 10:56:[address] [facility] [place] [place] ESTIMATED GFR 2021-08-21 10:56:00 Alma Girard spital [place] POC GLUCOSE 2021-08-21 03:20:00 Alma Girard spital [place] POC GLUCOSE 2021-08-20 14:56:00 Jennifer Ghosh spital HC COMPLETE BLD COUNT 2021-08-20 10:57:00 Ting Pierson [facility] DIFF [facility] BASIC METABOLIC PANEL 2021-08-20 10:57:00 Ting Pierson [facility] HEPATIC FUNCTION PANEL 2021-08-20 10:57:00 [facility] MAGNESIUM LEVEL 2021-08-20 10:57:00 Alma Girard spital [place] PHOSPHORUS LEVEL 2021-08-20 10:57:00 Ting Pierson, Alma Self PROTHROMBIN TIME WITH INR 2021-08-20 10:57:00 [facility] 2021-08-20 10:57:00 Alma Girard spimateo Self POC GLUCOSE 2021-08-20 02:42:00 [facility] [place] POC GLUCOSE 2021-08-19 20:04:00 Alma Girard [facility] HC COMPLETE BLD COUNT 2021-08-19 11:38:00 [facility]/AUTO DIFF [facility] BASIC METABOLIC PANEL 2021-08-19 11:38:00 [facility] 2021-08-19 11:38:00 [facility] [place] MAGNESIUM LEVEL 2021-08-19 11:38:00 Alma Girard PHOSPHORUS LEVEL 2021-08-19 11:38:00 Alma Girard ospimateo Self PROTHROMBIN TIME WITH INR 2021-08-19 11:38:00 [facility] ESTIMATED GFR 2021-08-19 11:38:00 Alma Girardalo POC GLUCOSE 2021-08-19 03:14:00 Alma Girard [place] POC GLUCOSE 2021-08-18 23:30:00 Alma Girard spital [place] POC GLUCOSE 2021-08-18 15:37:00 Alma Girardtal [place] URINE CULTURE 2021-08-18 12:53:00 Alma Girard URINALYSIS SCREEN AND 2021-08-18 11:31:00 [facility] MICROSCOPY, WITH REFLEX TO [place] CULTURE LACTIC ACID LEVEL, SEPSIS 2021-08-18 10:21:00 Orlando Balderrama [facility] - NOW AND REPEAT 2X EVERY 3 HOURS HC COMPLETE BLD COUNT 2021-08-18 10:21:00 [facility] W/AUTO DIFF [facility] BASIC METABOLIC PANEL 2021-08-18 10:21:00 [facility] HEPATIC FUNCTION PANEL 2021-08-18 10:21:00 [facility] MAGNESIUM LEVEL 2021-08-18 10:21:00 [facility] PHOSPHORUS LEVEL 2021-08-18 10:21:00 [facility] PROTHROMBIN TIME WITH INR 2021-08-18 10:21:00 [facility] ESTIMATED GFR 2021-08-18 10:21:00 [facility] LACTIC ACID LEVEL, SEPSIS 2021-08-18 07:56:00 [facility] - NOW AND REPEAT 2X EVERY 3 HOURS BLOOD CULTURE, AEROBIC & 2021-08-18 05:00:00 [facility] ANAEROBIC [facility] ECG 12-LEAD 2021-08-18 04:24:[address] [facility] [address] ABDOMEN PELVIS WO 2021-08-18 04:19:03 [facility] CONTRAST CT HEAD WO CONTRAST 2021-08-18 04:18:21 [facility] LACTIC ACID LEVEL, SEPSIS 2021-08-18 03:37:00 [facility] - NOW AND REPEAT 2X EVERY 3 HOURS B NATRIURETIC PEPTIDE 2021-08-18 03:37:00 [facility] PROTHROMBIN TIME WITH INR 2021-08-18 03:20:00 [facility] AMMONIA LEVEL 2021-08-18 03:20:00 [facility] TROPONIN T 2021-08-18 03:20:00 [facility] XR CHEST 1 VW PORTABLE 2021-08-18 03:14:19 [facility] HC COMPLETE BLD COUNT 2021-08-18 03:03:00 [facility] W/AUTO DIFF COMPREHENSIVE METABOLIC 2021-08-18 03:03:00 [facility] PANEL ESTIMATED GFR 2021-08-18 03:03:00 [facility] RESPIRATORY PATHOGEN PANEL 2021-08-18 03:03:00 [facility] WITH COVID-19 RT-PCR ECG ED PRELIMINARY 2021-08-18 02:54:33 [facility] INTERPRETATION COVID-19 QUALITATIVE 2021-08-11 05:31:00 [facility] RT-PCR [facility] COMPREHENSIVE METABOLIC 2021-08-11 05:30:00 [facility] PANEL [facility] HC COMPLETE BLD COUNT 2021-08-11 05:30:00 [facility] W/AUTO DIFF [facility] LACTIC ACID, I-STAT 2021-08-11 05:30:00 [facility] ESTIMATED GFR 2021-08-11 05:30:00 [facility] ECG 12-LEAD 2021-08-11 05:15:35 [facility] URINALYSIS 2021-08-11 05:00:00 [facility] XR CHEST 1 VW PORTABLE 2021-08-11 04:27:00 [facility] LACTIC ACID, I-STAT 2021-06-28 22:37:00 [facility] 2021-06-28 21:45:00 Romero Limon Ho spital HC COMPLETE BLD COUNT 2021-06-28 20:01:00 Romero Limon [facility] W/AUTO DIFF PROTHROMBIN TIME WITH INR, 2021-06-28 20:01:00 Romero Limon [facility] I-STAT COMPREHENSIVE METABOLIC 2021-06-28 20:01:00 Romero Limon [facility] PANEL LACTIC ACID, I-STAT 2021-06-28 20:01:00 Romero Limon [facility] SEDIMENTATION RATE 2021-06-28 20:01:00 Romero Limon [facility] ESTIMATED GFR 2021-06-28 20:01:00 Romero Limon [facility] COVID-19 QUALITATIVE 2021-06-28 20:01:00 [facility] RT-PCR BLOOD CULTURE, AEROBIC & 2021-06-28 20:01:00 [facility] ANAEROBIC HC COMPLETE BLD COUNT 2021-06-21 11:20:00 Dinakar, [facility] W/AUTO DIFF [facility] BASIC METABOLIC PANEL 2021-06-21 11:20:00 Dinakar, [facility] HEPATIC FUNCTION PANEL 2021-06-21 11:20:00 Dinakar, [facility] MAGNESIUM LEVEL 2021-06-21 11:20:00 Dinakar, [facility] PROTHROMBIN TIME WITH INR 2021-06-21 11:20:00 Dinakar, [facility] PHOSPHORUS LEVEL 2021-06-21 11:20:00 Dinakar, [facility] ospital [facility] ESTIMATED GFR 2021-06-21 11:20:00 Dinakar, [facility] PHOSPHATIDYLETHANOL, BLOOD 2021-06-21 11:20:00 [facility] URINE DRUGS OF ABUSE 2021-06-21 10:11:00 [facility] SCREEN URINALYSIS SCREEN AND 2021-06-21 10:10:00 [facility] MICROSCOPY, WITH REFLEX TO CULTURE URINE CULTURE 2021-06-21 10:10:00 [facility] COVID-19 SEROLOGY PATIENT 2021-06-20 17:52:[facility] SURVEILLANCE [facility] COVID-19 ANTI-SPIKE IGG 2021-06-20 17:52:00 Dinakar, [facility] ANTIBODY TITER [place] HC COMPLETE BLD COUNT 2021-06-20 11:03:00 Dinakar, [facility] W/AUTO DIFF [place] BASIC METABOLIC PANEL 2021-06-20 11:03:00 Dinakar, [facility] HEPATIC FUNCTION PANEL 2021-06-20 11:03:00 Dinakar, [facility] MAGNESIUM LEVEL 2021-06-20 11:03:00 Dinakar, [facility] spital [place] PROTHROMBIN TIME WITH INR 2021-06-20 11:03:00 Dinakar, [facility] PHOSPHORUS LEVEL 2021-06-20 11:03:00 Dinakar, [facility] ospital [place] ESTIMATED GFR 2021-06-20 11:03:00 DinakarPierce [facility] XR ABDOMEN 1 VW PORTABLE 2021-06-20 00:11:00 Mukesh [facility] AMMONIA LEVEL 2021 11:27:00 Jennifer Ghoshtal HC COMPLETE BLD COUNT 2021 11:24:00 Jennifer Ghosh [facility] W/AUTO DIFF PROTHROMBIN TIME WITH INR 2021 11:24:00 Jennifer Ghosh [facility] COMPREHENSIVE METABOLIC 2021 11:24:00 Jennifer Ghosh [facility] PANEL PHOSPHORUS LEVEL 2021 11:24:00 Jennifer Ghosh [facility]ital MAGNESIUM LEVEL 2021 11:24:00 Jennifer Ghosh [facility] HEMOGLOBIN A1C 2021 11:24:00 Jennifer Ghosh [facility]ital THYROID STIMULATING 2021 11:24:00 Jennifer Ghosh [facility] HORMONE T4 2021 11:24:00 Jennifer Ghosh spital VITAMIN D 25 HYDROXY LEVEL 2021 11:24:00 Jennifer Ghosh [facility] ESTIMATED GFR 2021 11:24:00 Jennifer Ghosh spital LACTIC ACID, I-STAT 2021 01:31:00 [facility] COVID-19 QUALITATIVE 2021 01:21:00 Diana Bangura [facility] RT-PCR CLOSTRIDIUM DIFFICILE 2021 00:30:00 [facility] TOXIN ENTERIC BACTERIAL PANEL 2021 00:30:00 Diana Bangura [facility] URINALYSIS 2021 00:09:00 Diana Bangura [facility] COMPREHENSIVE METABOLIC 2021-06-18 22:51:00 [facility] PANEL AMYLASE LEVEL 2021-06-18 22:51:00 Diana Bangura [facility] ESTIMATED GFR 2021-06-18 22:51:00 Diana Bangura [facility] HC COMPLETE BLD COUNT 2021-06-18 21:51:00 Diana Bangura [facility] W/AUTO DIFF COMPREHENSIVE METABOLIC 2021-06-18 21:51:00 Diana Bangura [facility] PANEL LACTIC ACID, I-STAT 2021-06-18 21:51:00 [facility] AMYLASE LEVEL 2021-06-18 21:51:00 [facility] 2021-06-18 21:51:00 [facility] AMMONIA LEVEL 2021-06-18 21:47:00 Diana Bangura [facility] HC COMPLETE BLD COUNT 2021-06-02 09:45:00 [facility] W/AUTO DIFF PROTHROMBIN TIME WITH INR 2021-06-02 09:45:00 [facility] BASIC METABOLIC PANEL 2021-06-02 09:45:00 [facility] HEPATIC FUNCTION PANEL 2021-06-02 09:45:00 [facility] PHOSPHORUS LEVEL 2021-06-02 09:45:00 [facility] MAGNESIUM LEVEL 2021-06-02 09:45:00 [facility] ESTIMATED GFR 2021-06-02 09:45:00 [facility]ital US ABDOMINAL LIMITED 2021-06-01 21:06:20 Joana Ling [facility] VENIPUNC NEED PHYS 2021-06-01 14:32:45 Brian Linda [facility] SKILL,DX OR RX HC COMPLETE BLD COUNT 2021-06-01 10:30:00 [facility] W/AUTO DIFF PROTHROMBIN TIME WITH INR 2021-06-01 10:30:00 [facility] BASIC METABOLIC PANEL 2021-06-01 10:30:00 [facility] HEPATIC FUNCTION PANEL 2021-06-01 10:30:00 [facility] PHOSPHORUS LEVEL 2021-06-01 10:30:00 [facility] MAGNESIUM LEVEL 2021-06-01 10:30:00 [facility] HEMOGLOBIN A1C 2021-06-01 10:30:00 [facility] THYROID STIMULATING 2021-06-01 10:30:00 [facility] HORMONE T4 2021-06-01 10:30:00 [facility] VITAMIN D 25 HYDROXY LEVEL 2021-06-01 10:30:00 [facility] ZINC LEVEL, SERUM 2021-06-01 10:30:00 [facility] ALPHA FETOPROTEIN 2021-06-01 10:30:00 [facility] AMMONIA LEVEL 2021-06-01 10:30:00 [facility] ESTIMATED GFR 2021-06-01 10:30:00 [facility] PHOSPHATIDYLETHANOL, BLOOD 2021-06-01 10:30:00 [facility] URINE CULTURE 2021-06-01 02:48:00 [facility] BLOOD CULTURE, AEROBIC & 2021-06-01 02:43:00 [facility] ANAEROBIC BLOOD CULTURE, AEROBIC & 2021-06-01 02:42:00 [facility] ANAEROBIC URINALYSIS SCREEN AND 2021-06-01 02:40:00 [facility] MICROSCOPY, WITH REFLEX TO CULTURE URINE DRUGS OF ABUSE 2021-06-01 02:40:00 [facility] SCREEN URIC ACID LEVEL 2021-06-01 02:38:00 [facility] PROTHROMBIN TIME WITH INR 2021-06-01 02:38:00 [facility] PHOSPHORUS LEVEL 2021-06-01 02:38:00 [facility] PARTIAL THROMBOPLASTIN 2021-06-01 02:38:00 [facility] TIME (PTT) MAGNESIUM LEVEL 2021-06-01 02:38:00 [facility] HEPATIC FUNCTION PANEL 2021-06-01 02:38:00 [facility] LDH 2021-06-01 02:38:00 [facility] LACTIC ACID LEVEL 2021-06-01 02:38:00 [facility] FIBRINOGEN 2021-06-01 02:38:00 [facility] HC COMPLETE BLD COUNT 2021-06-01 02:38:00 [facility] W/AUTO DIFF BASIC METABOLIC PANEL 2021-06-01 02:38:00 [facility] AMMONIA LEVEL 2021-06-01 02:38:00 [facility] ESTIMATED GFR 2021-06-01 02:38:00 [facility] COVID-19 SEROLOGY PATIENT 2021-06-01 02:38:00 [facility] SURVEILLANCE COVID-19 ANTI-SPIKE IGG 2021-06-01 02:38:00 Heriberto York [facility] ANTIBODY TITER ECG 12-LEAD 2021-06-01 01:06:10 Heriberto York [facility]spital XR ABDOMEN 1 VW PORTABLE 2021-06-01 01:06:00 Heriberto York [facility] XR CHEST 1 VW PORTABLE 2021-06-01 01:02:00 Heriberto York [facility] COVID-19 QUALITATIVE 2021-06-01 00:37:00 Chel[facility] RT-PCR HC COMPLETE BLD COUNT 2021-05-27 10:09:00 [facility] W/AUTO DIFF [facility] BASIC METABOLIC PANEL 2021-05-27 10:09:00 [facility] HEPATIC FUNCTION PANEL 2021-05-27 10:09:00 [facility] [place] MAGNESIUM LEVEL 2021-05-27 10:09:00 Alma Girard PHOSPHORUS LEVEL 2021-05-27 10:09:00 Alma Girard ossheldon Self PROTHROMBIN TIME WITH INR 2021-05-27 10:09:00 [facility] [place] ESTIMATED GFR 2021-05-27 10:09:00 Alma Girard VENOUS BLOOD GAS 2021-05-26 23:37:00 Nia Faustin HC COMPLETE BLD COUNT 2021-05-26 09:02:00 [facility]/AUTO DIFF [facility] PROTHROMBIN TIME WITH INR 2021-05-26 09:02:00 [facility] COVID-19 SEROLOGY PATIENT 2021-05-26 09:02:00 Abe Partida [facility] SURVEILLANCE Tom SMEAR REVIEW 2021-05-26 09:02:00 Alma Girard PHOSPHATIDYLETHANOL, BLOOD 2021-05-26 09:02:00 Palak Mayorga [facility] COVID-19 ANTI-SPIKE IGG 2021-05-26 09:02:00 Abe Partida [facility] ANTIBODY TITER Tom BASIC METABOLIC PANEL 2021-05-26 09:00:00 Ting [facility] [place] HEPATIC FUNCTION PANEL 2021-05-26 09:00:[address] [facility] MAGNESI[facility] LEVEL 2021-05-26 09:00:00 Alma Girard PHOSPHORUS LEVEL 2021-05-26 09:00:00 Alma Girard H ospimateo Self ALPHA FETOPROTEIN 2021-05-26 09:00:00 [facility] ZINC LEVEL, SERUM 2021-05-26 09:00:00 [facility] ESTIMATED GFR 2021-05-26 09:00:00 Alma Girard URINALYSIS SCREEN AND 2021-05-25 23:41:00 [facility] Dangelo [facility] MICROSCOPY, WITH REFLEX TO [place] CULTURE URINE DRUGS OF ABUSE 2021-05-25 23:41:00 [facility] S[facility] [place] URINE CULTURE 2021-05-25 23:41:00 Alma Girard US HEPATIC 2021-05-25 20:43:26 Alma Girard US ABDOMINAL DOPPLER 2021-05-25 20:40:00 [facility] [place] HC COMPLETE BLD COUNT 2021-05-25 18:10:00 Ting [facility] W/AUTO DIFF [place] SMEAR REVIEW 2021-05-25 18:10:00 Alma Girard [facility] NEED PHYS 2021-05-25 15:59:39 Tristin Hunt [facility] SKILL,DX OR RX CBC WITH PLATELET AND 2021-05-25 13:57:00 [facility] [place] COMPREHENSIVE METABOLIC 2021-05-25 13:57:00 [facility] [place] ESTIMATED GFR 2021-05-25 13:57:00 Alma Girard LACTIC ACID, I-STAT 2021-05-25 00:58:00 Romero Limon [facility] COVID-19 QUALITATIVE 2021-05-25 00:00:00 Romero Limon [facility] RT-PCR CT ABDOMEN PELVIS WO 2021-05-24 23:16:57 Romero Limon [facility] CONTRAST URINALYSIS 2021-05-24 22:19:00 Romero Limon [facility] HC COMPLETE BLD COUNT 2021-05-24 22:13:00 Romero Limon [facility] W/AUTO DIFF COMPREHENSIVE METABOLIC 2021-05-24 22:13:00 Romero Limon [facility] PANEL AMYLASE LEVEL 2021-05-24 22:13:00 Romero Limon [facility] LACTIC ACID, I-STAT 2021-05-24 22:13:00 Romero Limon [facility] ESTIMATED GFR 2021-05-24 22:13:00 Romero Limon [facility] BLOOD CULTURE, AEROBIC & 2021-05-24 22:00:00 Romero Limon [facility] ANAEROBIC CBC HEMOGRAM 2020-11-23 05:55:00 Alma Girard [facility] PROTHROMBIN TIME WITH INR 2020-11-23 05:55:00 [facility] COMPREHENSIVE METABOLIC 2020-11-23 05:55:00 [facility] PANEL [place] ESTIMATED GFR 2020-11-23 05:55:00 [facility] QUALITATIVE 2020-11-23 01:57:00 Wild [facility] RT-PCR Tomiwa LACTIC ACID, I-STAT 2020-11-23 01:40:00 Romero Limon [facility] CT HEAD WO CONTRAST 2020-11-22 23:20:00 Romero Limon [facility] HC COMPLETE BLD COUNT 2020-11-22 22:53:00 Romero Limon [facility] W/AUTO DIFF COMPREHENSIVE METABOLIC 2020-11-22 22:53:00 Romero Limon [facility] PANEL LACTIC ACID, I-STAT 2020-11-22 22:53:00 [facility] AM[facility]EL 2020-11-22 22:53:00 Romero Limon spital VENOUS BLOOD GAS 2020-11-22 22:53:00 Romero Limon ospital ESTIMATED GFR 2020-11-22 22:53:00 Romero Limon spital XR ABDOMEN ACUTE INC CHEST 2020-11-02 22:51:00 CortlandCliff monroy [facility] 1V ESTIMATED GFR 2020-11-02 21:55:00 [facility] HC COMPLETE BLD COUNT 2020-11-02 21:55:00 [facility]/AUTO DIFF COMPREHENSIVE METABOLIC 2020-11-02 21:55:00 [facility] PANEL PROTHROMBIN TIME WITH INR 2020-11-02 21:55:00 [facility] COVID-19 QUALITATIVE 2020-11-02 21:05:00 [facility] RT-PCR NM BRAIN SPECT W I 123 2020-10-26 19:02:00 Cliff Levy [facility] DATSCAN HC COMPLETE BLD COUNT 2020-10-24 10:15:00 [facility] W/AUTO DIFF BASIC METABOLIC PANEL 2020-10-24 10:15:00 [facility] HEPATIC FUNCTION PANEL 2020-10-24 10:15:00 [facility] MAGNESIUM LEVEL 2020-10-24 10:15:00 [facility] PHOSPHORUS LEVEL 2020-10-24 10:15:00 [facility] PROTHROMBIN TIME WITH INR 2020-10-24 10:15:00 [facility] HEMOGLOBIN A1C 2020-10-24 10:15:00 [facility] THYROID STIMULATING 2020-10-24 10:15:00 [facility] HORMONE T4 2020-10-24 10:15:00 [facility] VITAMIN D 25 HYDROXY LEVEL 2020-10-24 10:15:00 [facility] ZINC LEVEL, SERUM 2020-10-24 10:15:00 [facility] ALPHA FETOPROTEIN 2020-10-24 10:15:00 [facility] ESTIMATED GFR 2020-10-24 10:15:00 [facility] URINE DRUGS OF ABUSE 2020-10-24 10:00:00 [facility] SCREEN LACTIC ACID LEVEL, SEPSIS 2020-10-24 06:20:00 [facility] - NOW AND REPEAT 2X EVERY 3 HOURS LACTIC ACID LEVEL, SEPSIS 2020-10-24 02:25:00 [facility] - NOW AND REPEAT 2X EVERY 3 HOURS XR CHEST 1 VW PORTABLE 2020-10-24 00:08:00 Rehrer, [facility] BLOOD CULTURE, AEROBIC & 2020-10-23 23:31:00 Rehrer, [facility] ANAEROBIC RESPIRATORY PATHOGEN PANEL 2020-10-23 23:31:00 Rehrer, [facility] WITH COVID-19 RT-PCR COMPREHENSIVE METABOLIC 2020-10-23 23:31:00 Rehrer, [facility] PANEL PHOSPHORUS LEVEL 2020-10-23 23:31:00 Rehrer, [facility] MAGNESIUM LEVEL 2020-10-23 23:31:00 Rehrer, [facility] LACTIC ACID LEVEL, SEPSIS 2020-10-23 23:31:00 [facility] - NOW AND REPEAT 2X EVERY 3 HOURS LIPASE LEVEL 2020-10-23 23:31:00 Rehrer, [facility] ESTIMATED GFR 2020-10-23 23:31:00 Rehrer, [facility] HC COMPLETE BLD COUNT 2020-10-23 23:20:00 Rehrer, [facility] W/AUTO DIFF PROTHROMBIN TIME WITH INR 2020-10-23 23:20:00 Rehrer, [facility] PARTIAL THROMBOPLASTIN 2020-10-23 23:20:00 Rehrer, [facility] TIME (PTT) AMMONIA LEVEL 2020-10-23 23:20:00 Rehrer, [facility] HC COMPLETE BLD COUNT 2020-10-10 00:05:00 [facility] W/AUTO DIFF COMPREHENSIVE METABOLIC 2020-10-10 00:05:00 [facility] PANEL LACTIC ACID, I-STAT 2020-10-10 00:05:00 [facility] AMMONIA LEVEL 2020-10-10 00:05:00 [facility] ESTIMATED GFR 2020-10-10 00:05:00 [facility] URINALYSIS 2020-10-09 23:32:00 [facility] ECG 12-LEAD 2020-10-09 23:18:11 [facility] HC COMPLETE BLD COUNT 2020-09-21 10:28:00 [facility] W/AUTO DIFF BASIC METABOLIC PANEL 2020-09-21 10:28:00 [facility] HEPATIC FUNCTION PANEL 2020-09-21 10:28:00 [facility] MAGNESIUM LEVEL 2020-09-21 10:28:00 [facility] PHOSPHORUS LEVEL 2020-09-21 10:28:00 [facility] PROTHROMBIN TIME WITH INR 2020-09-21 10:28:00 [facility] MISCELLANEOUS REFERRAL 2020-09-21 10:28:00 Kienast, [facility] TEST VITAMIN B12 LEVEL 2020-09-21 10:28:00 [facility] FOLATE LEVEL 2020-09-21 10:28:00 [facility] ESTIMATED GFR 2020-09-21 10:28:00 [facility] COVID-19 QUALITATIVE 2020-09-20 20:51:00 Robby Perez [facility] RT-PCR Gabriel HC COMPLETE BLD COUNT 2020-09-20 12:08:00 [facility] W/AUTO DIFF BASIC METABOLIC PANEL 2020-09-20 12:08:00 [facility] HEPATIC FUNCTION PANEL 2020-09-20 12:08:00 [facility] MAGNESIUM LEVEL 2020-09-20 12:08:00 [facility] PHOSPHORUS LEVEL 2020-09-20 12:08:00 [facility] PROTHROMBIN TIME WITH INR 2020-09-20 12:08:00 [facility] HEMOGLOBIN A1C 2020-09-20 12:08:00 [facility] THYROID STIMULATING 2020-09-20 12:08:00 [facility] HORMONE T4 2020-09-20 12:08:00 [facility] VITAMIN D 25 HYDROXY LEVEL 2020-09-20 12:08:00 [facility] ZINC LEVEL, SERUM 2020-09-20 12:08:00 [facility] ALPHA FETOPROTEIN 2020-09-20 12:08:00 [facility] ESTIMATED GFR 2020-09-20 12:08:00 [facility] CT CERVICAL SPINE WO 2020-09-20 06:50:26 [facility] PELVIS WO CONTRAST 2020-09-20 06:50:16 [facility] HEAD WO CONTRAST 2020-09-20 06:50:[address] [facility] [place] CRITICAL CARE, E/M 2020-09-20 04:05:41 Bonny Rod [facility] 30-74 MINUTES Renee URINE CULTURE 2020-09-20 04:00:00 Bonny Rod Ho spital [place] URINALYSIS SCREEN AND 2020-09-20 04:00:00 Bonny Rod [facility] MICROSCOPY, WITH REFLEX TO Renee CULTURE URINE DRUGS OF ABUSE 2020-09-20 04:00:00 [facility] MAGNESIUM LEVEL 2020-09-20 04:00:00 Bonny Rod Ho spital [place] TROPONIN 2020-09-20 04:00:00 Bonny Rod spital [place] XR KNEE 3 VW LEFT 2020-09-20 02:06:29 [facility]W RIGHT 2020-09-20 02:06:09 Marcel [facility] XR SHOULDER 2+ VW RIGHT 2020-09-20 02:05:46 Bonny Rod [facility] HC COMPLETE BLD COUNT 2020-09-20 02:05:00 Bonny Rod [facility] W/AUTO DIFF Renee PROTHROMBIN TIME WITH INR 2020-09-20 02:05:[address] [facility] PARTIAL THROMBOPLASTIN 2020-09-20 02:05:00 [facility] ([facility]TT[facility] Renee COMPREHENSIVE METABOLIC 2020-09-20 02:05:00 Bonny Rod [facility] PANEL Renee TROPONIN 2020-09-20 02:05:00 Bonny Rod spital Renee B NATRIURETIC PEPTIDE 2020-09-20 02:05:00 [facility] AMMONIA LEVEL 2020-09-20 02:05:00 Bonny Rod [facility] Renee ALCOHOL LEVEL, BLOOD 2020-09-20 02:05:00 Bonny Rod [facility] Renee ESTIMATED GFR 2020-09-20 02:05:00 Bonny Rod [facility] Renee Plan of Care Planned Activity Planned Date Details Comments Source Future Scheduled 2024-08-[address] [facility]00 (procedure) [code = Medical Center 70472920] Future Scheduled 2022-04-12 INFLUENZA VACCINE (#1) [facility] [code = INFLUENZA Medical Ce nter VACCINE (#1)] Future Scheduled 2021-09-12 COLONOSCOPY SCREENING [facility] Test 12:13:11 [code = COLONOSCOPY SCREENING] Future Scheduled 2021-09-12 SHINGLES VACCINES (#1) [facility] Test 12:13:11 [code = SHINGLES VACCINES (#1)] Future Scheduled 2021-09-12 BREAST CANCER [facility] Test 12:13:11 SCREENING [code = BREAST CANCER SCREENING] Future Scheduled 2021-09-12 COVID-19 VACCINE (2 - Me [facility] Test 12:13:11 Booster for Yanira series) [code = COVID-19 VACCINE (2 - Booster for Yanira series)] Future Scheduled 2021-09-12 INFLUENZA VACCINE [facility] Test 12:13:11 [code = INFLUENZA VACCINE] Future Scheduled 2021-09-12 [facility] 12:13:11 malignant neoplasm of cervix (procedure) [code = 710577317] Future Scheduled 2021-08-[address] [facility] Test 00:00:00 (12+) [code = Medical Center DEPRESSION SCREENING (12+)] Future Scheduled 2021-08-[address] [facility] Test 00:00:00 (12+) [code = Medical Center DEPRESSION SCREENING (12+)] Future Scheduled 2021-04-12 INFLUENZA VACCINE (#1) [facility] 00:00:00 [code = INFLUENZA Medical Ce nter VACCINE (#1)] Future Scheduled 2016-01-[address] [facility] 00:00:00 WELLNESS (YEAR 2 or Medical Center FIRST YEAR if no IPPE) [code = MEDICARE ANNUAL WELLNESS (YEAR 2 or FIRST YEAR if no IPPE)] Future Scheduled 2016-01-[address] [facility] 00:00:00 WELLNESS (YEAR 2 or Medical Center FIRST YEAR if no IPPE) [code = MEDICARE ANNUAL WELLNESS (YEAR 2 or FIRST YEAR if no IPPE)] Future Scheduled 2011 SHINGLES VACCINES ([address] [facility] 00:00:00 of 2) [code = SHINGLES Medic al Center VACCINES (1 of 2)] Future Scheduled 2011 SHINGLES VACCINES ([address] [facility] 00:00:00 of 2) [code = SHINGLES Medic al Center VACCINES (1 of 2)] Future Scheduled [address] [facility] 00:00:00 (procedure) [code = Medical Center [id number]] Future Scheduled [address] 00:[facility]:00 [facility] cervix (procedure) [code = 149770076] Future Scheduled [address] [facility] [facility] 00:00:00 [facility] cervix (procedure) [code = 492070345] Future Scheduled 1980 DTAP/TDAP/TD VACCINES [facility] 00:00:00 (1 - Tdap) [code = Medical C enter DTAP/TDAP/TD VACCINES (1 - Tdap)] Future Scheduled 1980 DTAP/TDAP/TD VACCINES [facility] 00:00:00 (1 - Tdap) [code = Medical C enter DTAP/TDAP/TD VACCINES (1 - Tdap)] Future Scheduled 1973 COVID-19 VACCINE (1) [facility] 00:00:00 [code = COVID-[address] VACCINE (1)] Future Scheduled 1961 COVID-19 VACCINE (#1) [facility] 00:00:00 [code = COVID-[address] VACCINE (#1)] Future Scheduled [address] [facility] 00:00:00 [facility] breast [facility]procedure) [code = 732611796] Future Scheduled [address] [facility] Test 00:00:00 malignant neoplasm of [facility] Center colon (procedure) [code = 764918798] Future Scheduled [address] [facility] 00:00:00 malignant neoplasm of [facility] Center breast (procedure) [code = 155375580] Future Scheduled [address] [facility] 00:00:00 (combo) [code = CT Medical C enter Colonography (combo)] Future Scheduled [address] [facility] 00:00:00 malignant neoplasm of [facility]ica l Center colon (procedure) [code = 827913301] Future Scheduled [address] [facility] 00:00:00 malignant neoplasm of [facility] Center colon (procedure) [code = 896452896] Future Scheduled [address] [facility] 00:00:00 malignant neoplasm of [facility] Center colon (procedure) [code = 684717678] Future Scheduled [address] [facility] 00:00:00 malignant neoplasm of [facility]ica l Center colon (procedure) [code = 735091805] Future Scheduled 1961 Sigmoidoscopy [facility] S[facility]oscopy] Medical Cente r Encounters Start End Encounter Admission Attending Care Care Encounter Source Date/Time Date/Time Type Type Clinicians Facility Department ID 2022-04-27 Outpatient Man, [facility] [id number] Common 10:06:00 Fernando [facility] 2022-03-26 Outpatient ER [facility] Internal [id number] 11:28:10 [facility] 2022-03-22 [facility] [id number] Common 08:23:00 Fernando [facility] 2021-09-06 Outpatient Man, [facility] [id number] Common 13:49:19 Fernando [address] [facility] 2021-09-06 Outpatient Man, [facility] [id number] Common 13:45:16 Fernando [address] [facility] 2021-09-06 [facility] [id number] Common 12:49:41 Fernando [address] [facility] 2021-09-06 Outpatient Man, [facility] [id number] Common 12:05:14 Fernando [address]185 [facility] 2021-09-06 Outpatient Man, [facility] [id number] Common 12:03:44 Fernando 301[address] [facility] 2021-09-06 Outpatient Man, [facility] [id number] Common 11:42:32 Fernando [address] [facility] 2021-09-06 Outpatient Man, [facility] [id number] Common 11:33:04 Fernando [address] [facility] 2022-06-15 2022-06-26 Inpatient TING [facility] [id number] [place] 00:00:00 00:00:00 PIERSON, [address] [place]E 2022-03-26 2022-06-15 Inpatient YORK, [facility] [id number] [place] 00:00:00 00:00:00 HERIBERTO [address] 2022-02-17 2022-02-23 Inpatient DINAKAR, [facility] [id number] [place] 00:00:00 00:00:00 PIERCE 147 Method i 2022-02-09 2022-02-09 Outpatient Christian[facility] [id number] Univers 15:00:00 15:00:00 SALLY tatum [facility] 2022-02-09 2022-02-09 Outpatient Christiana AGUDELO [facility] [id number] Univers 15:00:00 15:00:00 SALLY attum [facility] 2022-02-08 2022-02-08 Orders Doctor KIRIT 1.2.840.114 [id number] Univers 00:00:00 00:00:00 Only Unassigned, MICHAEL 350.1.13.10 [place] [facility] 4.2.7.2.686 Brent as [phone] [address] 2022-01-30 2022-01-30 Telephone [facility] 1.2.840.114 [id number] [id number] Univers 00:00:00 00:00:00 [facility] 350.1.13.10 it y of Ricki PORRAS 4.2.7.2.686 Brent as VAMSI?BLEA [phone] Me dical KNEY 044 [facility] OFFICE [facility] 2022-01-23 2022-01-23 Lab [facility] [id number] [facility] 00:00:00 00:00:00 [facility] 2022-01-10 2022-01-10 Outpatient GALATI, [facility] [id number] [address] [place] [address] 00:00:00 00:00:00 CALOS [address] 2022-01-10 2022-01-10 Outpatient GALATI, [facility] [id number] [address] [place] [address] 00:00:00 00:00:00 CALOS [address] 2021-11-30 2021-11-30 (TEL) [facility] [id number] Co mmon 00:00:00 00:00:00 [facility] 2021-11-16 2021-11-16 Office [facility] 1.2.441.162 0201 [id number] Univers 13:30:00 14:32:33 Visit Libby PORRAS 350.1.13.10 i ty of [place] 4.2.7.2.686 [place] PROFESS[place] [phone] Ny chula NAL 134 [facility] 2021-11-16 2021-11-16 Outpatient Christiana LEVY [facility] [id number] Univers 13:30:00 14:32:33 LIBBY tatum [facility] 2021-11-16 2021-11-16 Outpatient Christiana LEVY [facility] [id number] Univers 13:30:00 13:30:00 LIBBY tatum [facility] 2021-11-16 2021-11-16 Outpatient Christiana LEVY [facility] [id number] Univers 13:30:00 13:30:00 LIBBY tatum [facility] 2021-11-10 2021-11-10 Office Ceasar [facility] 1.2.840.114 [id number] Univers 16:30:00 16:30:00 Visit Sally PORRAS 350.1.13.10 i ty of [place] 4.2.7.2.686 Kalyani SKINNER [phone] [place] [id number] [facility] 2021-11-10 2021-11-10 Outpatient Christian[facility] [id number] Univers 16:30:00 13:58:19 [facility] 2021-10-27 2021-11-04 Inpatient [facility] [id number] 61 [place] 00:00:00 00:00:00 Ava PIERSON i [facility]AYLEE [facility] 2021-10-16 2021-10-16 (HOSP F/U) [facility] [id number] Common 00:00:00 00:00:00 [facility] Follow Up - [facility] 2021-10-13 2021-10-13 (TEL) [facility] [id number] Co mmon 00:00:00 00:00:00 Spirit - [facility] 2021-10-03 2021-10-03 Refill Michael, [facility] [id number] [facility] 00:00:00 00:00:00 [facility] 2021-10-02 2021-10-02 Outpatient Christiana [facility] [id number] Univers 15:30:00 16:50:13 [facility] 2021-10-02 2021-10-02 Outpatient R [facility] [id number] Univers 15:30:00 15:30:00 [facility] 2021-09-27 2021-09-27 Outpatient R CAM [facility] [id number] Univers 13:45:00 15:38:26 [facility] 2021-09-27 2021-09-27 Office [facility] 1.2.588.033 5105 [id number] Univers 13:45:00 15:38:26 Visit Libby PORRAS 350.1.13.10 i ty [facility] 4.2.7.2.686 Brentbrendon skelton PROFDENISEIO [phone] Ny dical [address] 2021-09-27 2021-09-27 Outpatient R CAM, [facility] [id number] Univers 13:45:00 15:38:26 LIBBY ity [facility] 2021-09-27 2021-09-27 Orders Doctor KIRIT 1.2.840.114 [id number] Univers 00:00:00 00:00:00 Only Unassigned, MICHAEL 350.1.13.10 [place] [facility] 4.2.7.2.686 Brent as [phone] [address] 2021-09-25 2021-09-25 [facility]ICE [facility] [id number] Co mmon 00:00:00 00:00:00 VISIT Gilberto CARDENAS PT - CHI LEVEL 4 [facility] 2021-09-01 2021-09-16 [facility] Lacey Pan [facility] [id number] 22:15:00 12:13:00 [facility] Nia Savage 2021-09-01 2021-09-16 Inpatient ER [facility] Gastro [id number] [facility] 22:15:00 12:13:00 KENDY 2021-09-04 2021-09-04 (TEL) [facility] [id number] Co mmon 00:00:00 00:00:00 Spirit - [facility] 2021-09-01 2021-09-01 Telephone Cristofer, 1.2.840.1 [id number] Methodi 00:00:00 00:00:[address] Matthew 3.430.2.7 Hospit a .3.137143 l .8 2021-09-01 2021-09-01 Documentat Silvio [facility] [id number] [id number] 00:00:00 00:00:00 ion [facility] 2021-09-01 2021-09-01 Documentat Silvio [facility] [id number] [facility] 00:00:00 00:00:00 ion [facility] 2021-08-30 2021-08-31 Emergency ADALI, [facility] 064 [id number] [place] 00:00:00 00:00:00 MOISES [address] 2021-08-30 2021-08-30 Travel 1.2.840.1 1.2.073.044 7070 [id number] Methodi 00:00:00 00:00:[address] 3.430.2.7 0.2.7.3.698 Ho spita .3.179082 084.8 l .8 2021-08-29 2021-08-29 Outpatient Christiana LEVY [facility] [id number] [facility] 13:00:00 13:00:00 LIBBY tatum [facility] 2021-08-29 2021-08-29 [facility] [id number] [place] 00:00:00 00:00:00 CALOS [address] 2021-08-29 2021-08-29 Travel 1.2.840.1 1.2.017.129 7360 [id number] Methodi 00:00:00 00:00:[address] 3.430.2.7 0.2.7.3.698 Ho spita .3.170879 084.8 l .8 2021-08-25 2021-08-25 Travel 1.2.840.1 1.2.383.997 7697 007765 Methodi 00:00:00 00:00:[address] 3.430.2.7 0.2.7.3.698 Ho spita .3.289101 084.8 l .8 2021-08-17 2021-08-25 [facility] JENNIFER GHOSH 1.2.840.1 [id number] [place] 00:00:00 00:00:00 Encounter 06264.1.1 [address].7 [address] .3.242573 .8 2021-08-24 2021-08-24 Surgery Tomy, 1.2.840.1 [id number] 87417 Methodi 09:00:00 10:25:[address] 3.430.2.7 Hospit a .3.115080 l .8 2021-08-24 2021-08-24 Documentat Delcano, 1.2.840.1 [id number] Methodi 00:00:00 00:00:[place] [address]1.[address] Matthew 3.430.2.7 Hospit a .3.240986 l .8 2021-08-23 2021-08-23 Documentat Delcano, 1.2.840.1 [id number] Methodi 00:00:00 00:00:00 lupillo [place] 41196.1.[address] Matthew 3.430.2.7 Hospit a .3.684696 l .8 2021-08-21 2021-08-21 Social Jaimes, 1.2.840.1 [id number] 844 [id number] Methodi 12:37:39 13:37:39 Work Kirit 82112.1.[address] 3.430.2.7 Hospit a .3.144498 l .8 2021-08-21 2021-08-21 Documentat [facility], 1.2.840.1 [id number] Methodi 00:00:00 00:00:00 lupillo [place] [address]85.1.[address] Matthew 3.430.2.7 Hospit a .3.729379 l .8 2021-08-21 2021-08-21 Telephone Pops, 1.2.840.1 [id number] 2099 [id number] Methodi 00:00:00 00:00:[address] 3.430.2.7 Hospit a .3.459419 l .8 2021-08-18 2021-08-18 Travel 1.2.840.1 1.2.031.399 5186 751690 Methodi 00:00:00 00:00:[address] 3.430.2.7 0.2.7.3.698 Ho spita .3.706541 084.8 l .8 2021-08-10 2021-08-11 Emergency Adali, 1.2.840.1 [id number] 2 [id number] Methodi 20:25:00 01:30:[address] Rylee 3.430.2.7 Ho spita .3.957752 l .8 2021-08-10 2021-08-10 Travel 1.2.840.1 1.2.338.474 8577 144482 Methodi 00:00:00 00:00:[address] 3.430.2.7 0.2.7.3.698 Ho spita .3.406503 084.8 l .8 2021-07-28 2021-07-28 (TEL) STLC STLC [id number] Co mmon 00:00:00 00:00:00 [facility] 2021-07-25 2021-07-25 Telephone Stephanie, 1.2.840.1 [id number] 963 [id number] Methodi 00:00:00 00:00:[address] 3.430.2.7 Hospit a .3.354455 l .8 2021-07-24 2021-07-24 Telephone Pops, 1.2.840.1 [id number] 2099 064407 Methodi 00:00:00 00:00:[address] 3.430.2.7 Hospit a .3.946647 l .8 2021-07-12 2021-07-12 (TEL) STLMLC STLMLC [id number] Co mmon 00:00:00 00:00:00 [facility] 2021-06-29 2021-06-29 Travel 1.2.840.1 1.2.228.694 4110 028377 Methodi 00:00:00 00:00:[address] 3.430.2.7 0.2.7.3.698 Ho spita .3.238105 084.8 l .8 2021-06-28 2021-06-28 Emergency [facility] [id number] [place] [address] 00:00:00 00:00:00 ROMERO [address] 2021-06-22 2021-06-22 Behavioral John, 1.2.840.1 [id number] 433 [id number] Methodi 00:00:00 00:00:00 Health Kaleb 78714.1.[address] Johnny 3.430.2.7 Hospit a .3.315925 l .8 2021-06-18 2021-06-21 [facility], 1.2.840.1 [id number] [place] 00:00:00 00:00:00 Encounter [facility] 87905.1.[address] .3.692677 .8 2021-06-18 2021-06-18 Travel 1.2.840.1 1.2.584.886 6386 988302 Methodi 00:00:00 00:00:[address] 3.430.2.7 0.2.7.3.698 Ho spita .3.634572 084.8 l .8 2021-06-16 2021-06-16 [facility], 1.2.840.8 [id number] 21 [id number] Methodi 00:00:00 00:00:00 Only Eusebia Maya 92385.1.[address] 3.430.2.7 Hospit a .3.652416 l .8 2021-06-08 2021-06-08 Clinical 1.2.840.1 [id number] 66429 49052 Methodi 12:04:06 13:04:[address] 3.430.2.7 Hospit a .3.349859 l .8 2021-06-05 2021-06-05 Telephone John, 1.2.840.1 [id number] 2100 824631 Methodi 00:00:00 00:00:[address] Johnny 3.430.2.7 Hospit a .3.173603 l .8 2021-05-31 2021-06-02 [facility], 1.2.840.1 [id number] [place] 00:00:00 00:00:00 Encounter HERIBERTO 95603.1.1 [address] .3.516509 .8 2021-05-31 2021-05-31 Travel 1.2.840.1 1.2.877.608 2717 909948 Methodi 00:00:00 00:00:[address] 3.430.2.7 0.2.7.3.698 Ho spita .3.842130 084.8 l .8 2021-05-24 2021-05-27 [facility], [facility] 012 [id number] 53 [place] 00:00:00 00:00:00 Encounter PIERCE [address] 2021-05-24 2021-05-24 Travel 1.2.840.1 1.2.798.517 4881 [id number] Methodi 00:00:00 00:00:[address] 3.430.2.7 0.2.7.3.698 Ho spita .3.659283 084.8 l .8 2021-05-23 2021-05-23 (TEL) STLMLC STLMLC [id number] Co mmon 00:00:00 00:00:00 [facility] 2021-05-19 2021-05-19 (TEL) STLMLC STLMLC [id number] Co mmon 00:00:00 00:00:00 [facility] 2021-05-01 2021-05-01 (TEL) STLMLC STLMLC [id number] Co mmon 00:00:00 00:00:00 Spirit - [facility] 2021-04-26 2021-04-26 (TEL) STLMLC STLMLC [id number] Co mmon 00:00:00 00:00:00 [facility] - [facility] 2021-04-26 2021-04-26 OFFICE STLMLC STLMLC [id number] Co mmon 00:00:00 00:00:00 VISIT [facility] ESTAB PT - CHI LEVEL 4 [facility] 2021-04-26 2021-04-26 SUB ANNUAL STLMLC STLMLC [id number] Common 00:00:00 00:00:00 MCR [facility] WELLNESS - CHI VISIT [facility] 2021-01-13 2021-01-13 (TEL) STLMLC STLMLC [id number] Co mmon 00:00:00 00:00:00 [facility] CHI [facility] 2020-12-13 2020-12-13 (TEL) STLMLC STLMLC [id number] Co mmon 00:00:00 00:00:00 [facility] 2020-11-28 2020-11-28 Patient [place], 1.2.840.1 [id number] 82746 [id number] Methodi 00:00:00 00:00:00 Outreach Bia 34007.1.[address] 3.430.2.7 Hospit a .3.937463 l .8 2020-11-25 2020-11-25 Patient [place], 1.2.840.1 [id number] 10397 35364 Methodi 00:00:00 00:00:00 Outreach Bia 01075.1.[address] 3.430.2.7 Hospit a .3.418020 l .8 2020-11-24 2020-11-24 Patient [place], 1.2.840.1 [id number] 06072 06136 Methodi 00:00:00 00:00:00 Outreach Bia 12511.1.[address] 3.430.2.7 Hospit a .3.683970 l .8 2020-11-22 2020-11-23 Emergency Wild Kovacs 1.2.840. 1 [id number] Methodi 17:29:00 16:26:00 [address]lee [address]ard [address]1744.1.[address] 3.430.2.7 Hospit a .3.911173 l .8 2020-11-22 2020-11-22 Travel 1.2.840.1 1.2.553.825 3516 521988 Methodi 00:00:00 00:00:[address] 3.430.2.7 0.2.7.3.698 Ho spita .3.683416 084.8 l .8 2020-11-17 2020-11-17 Outpatient STLMLC STLMLC [id number] Common 00:00:00 00:00:00 [facility] 2020-11-02 2020-11-02 [facility] 1.2.840.1 104 [id number] Methodi 16:45:00 23:59:00 Calos Lewis 82460.1.[address] 3.430.2.7 Hospit a .3.368993 l .8 2020-11-02 2020-11-02 Lab Jose 1.2.840.1 [id number] 4493 Methodi 16:00:31 16:05:31 Calos Feng 37214.1.[address] 3.430.2.7 Hospit a .3.914567 l .8 2020-11-02 2020-11-02 Travel 1.2.840.1 1.2.153.306 0116 773055 Methodi 00:00:00 00:00:[address] 3.430.2.7 0.2.7.3.698 Ho spita .3.701548 084.8 l .8 2020-10-26 2020-10-26 [facility] 1.2.840.1 [id number] 374 [id number] Methodi 12:51:36 23:59:00 Encounter Cliff F. 30522.1.[address] 3.430.2.7 Hospit a .3.047564 l .8 2020-10-26 2020-10-26 [facility] 1.2.840.1 [id number] 409 [id number] Methodi 08:10:06 12:50:00 Encounter Cliff Marion 71035.1.[address] 3.430.2.7 Hospit a .3.098219 l .8 2020-10-26 2020-10-26 Travel 1.2.840.1 1.2.467.324 0989 406577 Methodi 00:00:00 00:00:[address] 3.430.2.7 0.2.7.3.698 Ho spita .3.254233 084.8 l .8 2020-10-23 2020-10-24 [facility] 1.2.840.1 104 145388 [id number] Methodi 17:57:00 14:46:00 Encounter Heriberto York 58497.1.[address] [facility] Pierson, Baylee 3.430.2.7 [facility] .3.491486 l .8 2020-10-13 2020-10-13 Travel 1.2.840.1 1.2.761.601 9393 010579 Methodi 00:00:00 00:00:[address] 3.430.2.7 0.2.7.3.698 Ho spita .3.827547 084.8 l .8 2020-10-12 2020-10-[address] [facility] 1.2.840.1 [id number] 2 [id number] Methodi 00:00:00 00:00:00 Orders Cliff ChuLaurel 63424.1.[address] 3.430.2.7 Hospit a .3.571466 l .8 2020-10-11 2020-10-11 Outpatient STLMLC STLMLC [id number] Common 00:00:00 00:00:00 Spirit [facility] 2020-10-09 2020-10-09 Emergency Azevedo, 1.2.840.1 [id number] 2100 [id number] Methodi 16:28:00 19:29:[address] Gus 3.430.2.7 Hospit a .3.548168 l .8 2020-10-03 2020-10-03 Outpatient STLMLC STLMLC [id number] Common 00:00:00 00:00:00 [facility] 2020-09-19 2020-09-21 [facility] Robby Gabriel 1.2.840.1 [id number] Methodi 16:55:00 14:27:00 Encounter Heriberto York 28868.1.[address] Jennifer Ghosh 3.430.2.7 Hos lis .3.518352 l .8 2020-09-15 2020-09-15 Transcribe Jose 1.2.840.1 [id number] 449 [id number] Methodi 00:00:00 00:00:00 Orders Calos Feng 39131.1.[address] 3.430.2.7 Hospit a .3.463769 l .8 2020-09-14 2020-09-14 Outpatient STLMLC STLC [id number] Common 00:00:00 00:00:00 [facility] 2020-08-31 2020-09-02 Inpatient DINAKAChristiana, [facility] [id number] 438 [place] 00:00:00 00:00:00 PIERCE 426 Method i 2020-08-10 2020-08-13 Inpatient CHELA, [facility] 012 [id number] [place] 00:00:00 00:00:00 HERIBERTO 301 Method i 2020-08-09 2020-08-09 Emergency NUJAIME, [facility] 064 [id number] 75 [place] 00:00:00 00:00:00 ROMERO 618 Method i 2020-08-08 2020-08-08 Emergency WEIKAMLA, [facility] 064 [id number] 08 [place] 00:00:00 00:00:00 NOBLE 028 Method i 2020-07-27 2020-07-27 Outpatient STLMLC STLMLC [id number] Common 00:00:00 00:00:00 [facility] 2020-07-18 2020-07-18 Outpatient [facility] [id number] 692 [place] 00:00:00 00:00:00 996 Method i 2020-07-04 2020-07-07 Inpatient JENNIFER GHOSH [facility] 064 [id number] [place] 00:00:00 00:00:00 529 Method i 2020-06-28 2020-06-28 Outpatient STLMLC STLMLC [id number] Common 00:00:00 00:00:00 [facility] 2020-06-20 2020-06-20 Outpatient STLMLC STLMLC [id number] Common 00:00:00 00:00:00 [facility] 2020-05-30 2020-06-03 Inpatient JENNIFER GHOSH [facility] 064 [id number] [place] 00:00:00 00:00:00 431 Method i 2020-05-27 2020-05-27 Outpatient YALAMANCHIL [facility] [id number] [place] 00:00:00 00:00:00 I, YIFAN 752 Meth erasto 2020-05-20 2020-05-20 Outpatient STLMLC STLMLC [id number] Common 00:00:00 00:00:00 [facility] 2020-05-13 2020-05-17 Inpatient MCCARTAN, [facility] 064 [id number] [place] 00:00:00 00:00:00 [facility] 422 Method i 2020-04-13 2020-04-21 Inpatient YOJANA, [facility] 064 [id number] 65 [place] 00:00:00 00:00:00 JUNO 459 Method i 2020-04-13 2020-04-13 [facility] 32 [id number] Common 16:02:00 16:02:[address] [facility] 2020-04-13 2020-04-13 Outpatient [facility] 32 [id number] Common 09:33:00 09:33:00 t [employer] Spir it [address] [facility] 2020-04-05 2020-04-05 Outpatient [facility] 32 [id number] Common 09:10:00 09:10:[address] [facility] 2020-04-04 2020-04-04 Outpatient [facility] 32 [id number] Common 10:58:00 10:58:[address] [facility] 2020-04-04 2020-04-04 Outpatient [facility] 32 [id number] Common 10:00:00 10:00:[address] [facility] 2020-03-17 2020-03-19 Inpatient TING [facility] 064 [id number] 84 [place] 00:00:00 00:00:00 Ben [facility]ERSON [facility] 2020-03-16 2020-03-16 Out[facility] [id number] Common 11:12:00 11:12:[address] [facility] 2020-03-14 2020-03-14 Outpatient JACQUELIN [facility] [id number] [place] 00:00:00 00:00:00 AHMED [address] 2020-03-10 2020-03-10 Outpatient [facility] [id number] Common 13:18:00 13:18:[address] [facility] 2020-03-07 2020-03-07 Outpatient [facility] 31 [id number] Common 16:07:00 16:07:[address] [facility] 2020-03-04 2020-03-04 Outpatient [facility] 30 [id number] Common 11:00:00 11:00:[address] [facility] 2020-03-04 2020-03-04 Outpatient [facility] 30 [id number] Common 11:00:00 11:00:[address] [facility] 2020-03-04 2020-03-04 Outpatient MEAGAN, [facility] [id number] 128 [place] 00:00:00 00:00:00 JAYASIMHA 578 Meth erasto 2020-02-18 2020-02-21 Inpatient CHELA, [facility] 064 [id number] [place] 00:00:00 00:00:00 HERIBERTO 304 Method i 2020-01-18 2020-01-20 Inpatient ROLANDO, [facility] [id number] 718 [place] 00:00:00 00:00:00 PIERCE 881 Method i 2020-01-07 2020-01-11 Inpatient CHELA, [facility] 064 [id number] [place] 00:00:00 00:00:00 HERIBERTO 087 Method i 2019-12-29 2019-12-29 Outpatient [facility] 30 [id number] [facility] 07:03:00 07:03:00 [employer] [facility] ZBD Displays [facility] 2019-12-23 2019-12-25 Inpatient TING [facility] 064 [id number] 99 [place] 00:00:00 00:00:00 DANGELO, 540 Method i BAYLEE 2019-12-23 2019-12-23 Outpatient JACQUELIN, [facility] [id number] [place] 00:00:00 00:00:00 AHMED 960 Method i 2019-12-22 2019-12-22 [facility] 1.2.840.114 [id number] 66 14:08:03 14:56:41 Visit [facility] 350.1.13.10 Surgical 4.2.7.2.686 Specialti [id number] es 198 [place] 2019-12-22 2019-12-22 Office [facility] 1.2.840.114 [id number] 66 [facility] 14:08:03 14:56:41 Visit [facility] 350.1.13.10 it y of Surgical 4.2.7.2.686 Brent as Specialti [id number] Ny dical es 198 [facility] 2019-12-22 2019-12-22 Outpatient R SHEKHAR [facility] [id number] Univers 14:15:00 14:15:00 LITA [facility] 2019-12-15 2019-12-15 [facility] 1.2.840.114 [id number] [facility] 14:57:28 15:12:28 Visit [facility] 350.1.13.10 it y of Surgical 4.2.7.2.686 Brent as Specialti [phone] Me dical es 198 [facility] 2019-12-15 2019-12-15 [facility] [id number] Univers 15:00:00 15:00:00 LITA ity [facility] 2019-12-08 2019-12-08 [facility] 1.2.840.114 [id number] Univers 15:45:23 16:15:13 Visit [facility] 350.1.13.10 it y of Surgical 4.2.7.2.686 Brent as Specialti [phone] Me dical es 198 [facility] 2019-12-08 2019-12-08 [facility] [id number] Univers 16:00:00 16:00:00 LITA [facility] 2019-12-08 2019-12-08 [facility] [id number] Univers 13:45:00 13:45:00 ILTA [facility] 2019-10-30 2019-10-30 [facility] [id number] Univers 10:15:00 10:15:00 [facility] 2019-10-26 2019-10-26 Orders Doctor KIRIT 1.2.840.114 [id number] Univers 00:00:00 00:00:00 Only Unassigned, MICHAEL 350.1.13.10 [place] [facility] 4.2.7.2.686 Brent as [phone] [address] 2019-10-22 2019-10-22 Outpatient [facility] [id number] Univers 16:15:00 16:15:00 LITA y [facility] 2019-10-22 2019-10-22 [facility] 1.2.840.114 [id number] Univers 10:06:57 10:56:32 Visit [facility] 350.1.13.10 it y of Surgical 4.2.7.2.686 Brent as Specialti [phone] Me dical es 198 [facility] 2019-10-22 2019-10-22 [facility] [id number] Univers 10:15:00 10:15:00 [facility] 2019-10-12 2019-10-15 Inpatient CHELA [facility] [id number] [place] 00:00:00 00:00:00 HERIBERTO 906 [facility] 2019-09-24 2019-09-24 [facility] 1.2.840.114 [id number] Univers 11:21:26 11:41:20 Visit [facility] 350.1.13.10 it y of Surgical 4.2.7.2.686 Brent as Specialti [phone] Ny dical es [address] 2019-09-24 2019-09-24 [facility] [id number] Univers 11:15:00 11:41:20 [facility] 2019-09-01 2019-09-03 Inpatient CHELA [facility] [id number] [place] 00:00:00 00:00:00 HERIBERTO 637 [facility] 2019-07-20 2019-07-20 Outpatient [facility] [id number] Common 14:02:00 14:02:[address] [facility] 2019-07-16 2019-07-16 Outpatient [facility] [id number] Common 13:15:00 13:15:[address] [facility] 2019-06-16 2019-06-18 Inpatient CHELA [facility] [id number] [place] 00:00:00 00:00:00 HERIBERTO [address] [facility] 2019-05-07 2019-05-08 Outpatient DARCY, UMAR [facility] [id number] [place] 00:00:00 00:00:00 691 [facility] 2019-04-23 2019-04-23 Outpatient GALATI, [facility] [id number] [place] 00:00:00 00:00:00 CALOS 089 [facility] 2019-04-23 2019-04-23 Outpatient JACQUELIN, [facility] [id number] [place] 00:00:00 00:00:00 AHMED 724 Method i 2019-04-15 2019-04-15 [facility] [id number] Common 14:19:00 14:19:[address] [facility] 2019-04-09 2019-04-09 [facility] [id number] Common 14:00:00 14:00:[address] [facility] 2019-03-10 2019-03-10 Transition Ashly Makorin [id number] Univers 00:00:00 00:00:00 of Care Anabell Walkery [id number] it y of [place] [id number] [facility] [id number] [facility] [address] 2019-03-06 2019-03-09 [facility] Akanksha Jensen [id number] Univers 00:42:03 16:11:00 Encounter Indra Motta 350.1.13.1 0 ity of [facility] [id number] [place] [id number] [facility] [address] 2019-01-21 2019-01-21 Emergency X CHAKRABORTY, [facility] ERT [id number] Univers 19:21:56 22:21:00 MARTELL tatum [facility] 2018-09-09 2018-09-09 [facility] [id number] Common 14:45:00 14:45:[address] [facility] 2018-04-15 2018-04-15 [facility] [id number] Common 12:02:00 12:02:[address] [facility] 2018-02-19 2018-02-19 [facility] [id number] Common 15:08:00 15:08:[address] [facility] 2018-01-24 2018-01-24 [facility] 13 [id number] Common 11:15:00 11:15:[address] [facility] Results Test Description Test Time Test Comments Results Result Comments Source SARS-CoV-2 (COVID-19) RNA [Presence] in Respiratory sp ecimen by 2022-06-14 00:24:44 GUSTAVO with probe detection Test Item Value Reference Range Interpretation Comme nts SARS-CoV-2 (COVID-19) RNA [Presence] in Respiratory specimen by Not detected GUSTAVO with probe detection (test code = 71042-0) 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 (test code = Un known 60919-7) Whether the patient has symptoms related to condition of interest U nknown (test code = 29792-4) Whether the patient was hospitalized for condition of interest Unkn own (test code = 91292-8) Whether the patient was admitted to intensive care unit (ICU) for U nknown condition of interest (test code = 74083-9) Whether patient resides in a congregate care setting (test code = U nknown 24429-8) status (test code = 85840-3) Unknown Date and time of symptom onset (test code = 21990-5) Unknown PHI MICHAELSARS-CoV-2 (COVID-19) RNA [Presence] in Respiratory specimen by GUSTAVO with probe [id number] 07:50:50 Test Item Value Reference Range Interpretation Comments SARS-CoV-2 (COVID-19) RNA Not detected [Presence] in Respiratory specimen by GUSTAVO with probe detection (test code = 69755-3) 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 employed in a Unknown healthcare setting (test code = 47127-5) Whether the patient has symptoms Unknown related to condition of interest (test code = 45141-2) Whether the patient was Unknown hospitalized for condition of interest (test code = 70740-0) Whether the patient was admitted Unknown to intensive care unit (ICU) for condition of interest (test code = 55612-6) Whether patient resides in a Unknown congregate care setting (test code = 46672-3) status (test code = Unknown 57059-2) Date and time of symptom onset Unknown (test code = 15519-2) PHI MICHAELSARS-CoV-2 (COVID-19) RNA [Presence] in Respiratory specimen by GUSTAVO with probe [id number] 19:18:03 Test Item Value Reference Range Interpretation Comments SARS-CoV-2 (COVID-19) RNA Not detected [Presence] in Respiratory specimen by GUSTAVO with probe detection (test code = 15402-3) 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 employed in a No healthcare setting (test code = 64539-3) Whether the patient has symptoms Yes related to condition of interest (test code = 36544-7) Whether the patient was No hospitalized for condition of interest (test code = 66779-4) Whether the patient was admitted No to intensive care unit (ICU) for condition of interest (test code = 10209-6) Whether patient resides in a No congregate care setting (test code = 28451-7) status (test code = No 02725-1) Date and time of symptom onset Unknown (test code = 39830-8) PHI MICHAELSARS-CoV-2 (COVID-19) RNA [Presence] in Respiratory specimen by GUSTAVO with probe [id number] 11:44:34 Test Item Value Reference Range Interpretation Comments SARS-CoV-2 (COVID-19) RNA Not detected [Presence] in Respiratory specimen by GUSTAVO with probe detection (test code = 63381-5) 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 employed in a Unknown healthcare setting (test code = 17337-4) Whether the patient has symptoms Unknown related to condition of interest (test code = 14998-7) Whether the patient was Unknown hospitalized for condition of interest (test code = 78328-4) Whether the patient was admitted Unknown to intensive care unit (ICU) for condition of interest (test code = 58994-5) Whether patient resides in a Unknown congregate care setting (test code = 68704-1) status (test code = Unknown 89616-8) Date and time of symptom onset Unknown (test code = 07009-5) PHI MICHAELSARS-CoV-2 (COVID-19) RNA [Presence] in Respiratory specimen by GUSTAVO with probe [id number] 05:03:29 Test Item Value Reference Range Interpretation Comments SARS-CoV-2 (COVID-19) RNA Not detected [Presence] in Respiratory specimen by GUSTAVO with probe detection (test code = 90584-7) 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 employed in a Unknown healthcare setting (test code = 13910-3) Whether the patient has symptoms Unknown related to condition of interest (test code = 41028-8) Whether the patient was Unknown hospitalized for condition of interest (test code = 71701-2) Whether the patient was admitted Unknown to intensive care unit (ICU) for condition of interest (test code = 24932-5) Whether patient resides in a Unknown congregate care setting (test code = 44595-8) status (test code = Unknown 27851-7) Date and time of symptom onset Unknown (test code = 88170-3) PHI DEANRS-CoV-2 (COVID-19) RNA [Presence] in Respiratory specimen by GUSTAVO with probe [id number] 16:50:47 Test Item Value Reference Range Interpretation Comments SARS-CoV-2 (COVID-19) RNA Not detected [Presence] in Respiratory specimen by GUSTAVO with probe detection (test code = 96102-8) 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 employed in a Unknown healthcare setting (test code = 03108-6) Whether the patient has symptoms Unknown related to condition of interest (test code = 08198-7) Whether the patient was Unknown hospitalized for condition of interest (test code = 73923-1) Whether the patient was admitted Unknown to intensive care unit (ICU) for condition of interest (test code = 64274-8) Whether patient resides in a Unknown congregate care setting (test code = 64426-7) status (test code = Unknown 90973-1) Date and time of symptom onset Unknown (test code = 44743-5) PHI MICHAEL72197-MRI ENTEROGRAPHY ABDOMEN & PELVIS W/[id number] 13:32:43PHI MEDICAL IMAGINGName: BELLA BARRON : 1960 Sex: FCLINICAL INDICATIO N: K50.90, Crohns disease, unspecified, without complications K92.1, Melena R19.4, Change in bowel habitMODALITY: Neocutis 3T MRITECHNIQUE: Parallel imaging is accomplished using T2, in-phase, tam-cn-ygasu, and breath-holding sequences. MR enterography techniques are [...] lymph nodes. No mural or intraluminal bladder mass.Hepatitis B surface antigen 2022-01-23 23:01:06 Test Item Value Reference Range Interpretation Comments Hepatitis B surface Nonreactive Nonreactive antigen (test code = 5195-3) REJI (test code = REJI) Specimen is considered negative for HBsAg. Lab Interpretation (test Normal code = 71222-5) [facility] B core antibody, [id number] 23:01:06 Test Item Value Reference Range Interpretation Comments Hep B C IgM (test code = Nonreactive Nonreactive 41056-3) REJI (test code = REJI) Consulting Psychiatrist ID - ADMIN Lab Interpretation (test Normal code = 29808-0) [facility], [id number] 23:01:06 Test Item Value Reference Range Interpretation Comments Hep A IgM (test code = Nonreactive Nonreactive 98373-0) REJI (test code = REJI) Consulting Psychiatrist ID - ADMIN Lab Interpretation (test Normal code = 93369-6) [facility] C [id number] 23:01:06 Test Item Value Reference Range Interpretation Comments Hepatitis C Ab (test code Nonreactive Nonreactive = 51398-9) REJI (test code = REJI) Consulting Psychiatrist ID - ADMIN Lab Interpretation (test Normal code = 95578-5) [facility] B SURFACE [id number] 23:01:06 Test Item Value Reference Range Interpretation Comments HEPATITIS B SURFACE ANTIGEN (2) Nonreactive Nonreactive (BEAKER) (test code = 2585) Specimen is considered negative for HBsAg.HEPATITIS B CORE ANTIBODY, IGM 2022-01-23 23:01:06 Test Item Value Reference Range Interpretation Comments HEPATITIS B CORE IGM ANTIBODY Nonreactive Nonreactive (BEAKER) (test code = 645) Consulting Psychiatrist ID - ADMINPATITIS C [id number] 23:01:06 Test Item Value Reference Range Interpretation Comments HEPATITIS C ANTIBODY (BEAKER) Nonreactive Nonreactive (test code = 367) Consulting Psychiatrist ID - ADMINHEPATITIS A ANTIBODY, [id number] 23:01:06 Test Item Value Reference Range Interpretation Comments HEPATITIS A IGM ANTIBODY (BEAKER) Nonreactive Nonreactive (test code = 498) Consulting Psychiatrist ID - EODDTPYBA-FeK-3 (COVID-19) RNA [Presence] in Respiratory specimen by GUSTAVO with probe [id number] 04:55:57 Test Item Value Reference Range Interpretation Comments SARS-CoV-2 (COVID-19) RNA Not detected [Presence] in Respiratory specimen by GUSTAVO with probe detection (test code = 84457-8) 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 employed in a Unknown healthcare setting (test code = 47913-1) Whether the patient has symptoms Unknown related to condition of interest (test code = 64649-7) Whether the patient was Unknown hospitalized for condition of interest (test code = 88230-6) Whether the patient was admitted Unknown to intensive care unit (ICU) for condition of interest (test code = 91672-9) Whether patient resides in a Unknown congregate care setting (test code = 84035-1) status (test code = Unknown 90879-6) Date and time of symptom onset Unknown (test code = 08452-9) PHI MICHAELSARS-CoV-2 (COVID-19) RNA [Presence] in Respiratory specimen by GUSTAVO with probe [id number] 01:48:29 Test Item Value Reference Range Interpretation Comments SARS-CoV-2 (COVID-19) RNA Not detected [Presence] in Respiratory specimen by GUSTAVO with probe detection (test code = 45978-1) 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 employed in a Unknown healthcare setting (test code = 79502-5) Whether the patient has symptoms Unknown related to condition of interest (test code = 67671-3) Whether the patient was Unknown hospitalized for condition of interest (test code = 86472-3) Whether the patient was admitted Unknown to intensive care unit (ICU) for condition of interest (test code = 45096-8) Whether patient resides in a Unknown congregate care setting (test code = 66428-6) status (test code = Unknown 36070-1) Date and time of symptom onset Unknown (test code = 64232-7) PHI CORLEY WESTCT, [id number] 08:50:00Unlisted Reason for Exam - Click Yes and Enter Reason Below->YesUnlisted Reason for Exam->diarrhea. abdominal pain. C dif colitis.Is this for enterography?->NoWill this procedure require oral contrast?->No [facility] 1960 Sex: FFINAL [...] Small right pleural effusion. Signed: Quentin Sims [facility] Verified Date/Time: 09/15/2021 08:50:57 Basic Metabolic [id number] 07:34:36 Test Item Value Reference Range Interpretation Comments Sodium (test code = 138 meq/L 028-193 4219-2) Potassium (test code 3.7 meq/L 3.5-5.1 Specime n = 2823-3) slightly hemolyzed Chloride (test code = 105 meq/L 98-107 2074-0) CO2 (test code = 26 meq/L 22-29 2028-9) BUN (test code = 10 mg/dL 7-21 3094-0) Creatinine (test code 0.72 mg/dL 0.57-1.25 Specim en = 2160-0) slightly hemolyzed Glucose (test code = 60 mg/dL 70-105 L 2345-7) Calcium (test code = 7.5 mg/dL 8.4-10.2 L 52284-6) EGFR (test code = 83 mL/min/1.73 [place] [address]-3) NOT ACCURATE CREATININE CLEARANCE IN PREDICTING GLOMERULAR FILTRATION RATE . ESTIMATED GFR I S NOT APPLICABLE FOR DIALYSIS PATIENTS. REJI (test code = REJI) Consulting Psychiatrist ID - EOSpecimen moderately icteric Lab Interpretation Abnormal (test code = 66517-5) [facility] METABOLIC [id number] 07:34:36 Test Item Value Reference Range Interpretation [...] S NOT APPLICABLE FOR DIALYSIS PATIEN TS. Consulting Psychiatrist ID - EOSpecimen moderately ictericHepatic function [id number] 07:29:08 Test Item Value Reference Range Interpretation Comments Protein, Total (test 5.2 See_Comment L Specime n slightly code = 2885-2) hemolyzed [Automated message] The system which generated this result transmitted reference range : 6.0 - 8.3 gm/dL . The reference range was not used to interpr et this result as normal/abnormal . Albumin (test code = 2.1 g/dL 3.5-5.0 L Specime n slightly 74922-6) hemolyzed Total Bilirubin (test 3.9 mg/dL 0.2-1.2 H Specim en slightly code = 1975-2) hemolyzed Bilirubin, Direct 1.5 mg/dL 0.1-0.5 H Specimen s lightly (test code = 1968-7) hemolyz ed Alkaline Phosphatase 95 U/L 40-150 (test code = 6768-6) AST (test code = 37 U/L 5-34 H Specimen sl ightly 1920-8) hemolyzed ALT (test code = 18 U/L 6-55 Specimen sl ightly 1742-6) hemolyzed REJI (test code = REJI) Consulting Psychiatrist ID - EOSpecimen moderately icteric Lab Interpretation Abnormal (test code = 63900-3) [facility] CampusHEPAT[facility] FUNCTION [id number] 07:29:08 Test Item Value Reference Range Interpretation [...] Specimen slightly (test code = 347) hemolyzed Consulting Psychiatrist ID - EOSpecimen moderately ictericProthrombin time/[id number] 06:46:58 Test Item Value Reference Interpretation Comments Range Protime (test code = 22.1 See_Comment H [Autom ated 5902-2) message] The system which generated this result transmitted reference range : 11.9 - 14.2 seconds. The reference range was not used to interpret this result as normal/abnormal . INR (test code = 1.96 See_Comment [Automated 6301-6) message] The system which [...] valves. Lab Interpretation Abnormal (test code = 37356-7) [facility] CampusPROTHROMBIN TIME/[id number] 06:46:58 Test Item Value Reference Range Interpretation Comments PROTIME (BEAKER) 22.1 seconds 11.9-14.2 H (test code = 759) INR (BEAKER) (test 1.96 See_Comment [Automat ed message] code = 370) The system [employer] generated this result transmitted ref erence range: <=5.90. The reference range was not used to int erpret this result as normal/abnormal . RECOMMENDED COUMADIN/WARFARIN INR THERAPY RANGESSTANDARD DOSE: 2.0 - 3.0 Includes: PROPHYLAXIS for venous thrombosis, systemic embolization; TREATMENT for venous thrombosis and/or pulmonary embolus.HIGH RISK: Target INR is 2.5-3.5 for patients with mechanical heart valves.CBC with platelet count + automated [id number] 06:38:55 Test Item Value Reference Range Interpretation Comments WBC (test code = 6690-2) 7.9 See_Comment [A utomated message] The system [employer] generated this result transmitted ref erence range: 3.5 - 10 .5 K/L. The refe rence range was not u sed to interpret this result as normal/abnor mal. RBC (test code = 789-8) 2.53 See_Comment L [Au tomated message] The system [employer] generated this result transmitted ref erence range: 3.93 - 5 .22 M/L. The refe rence range was not u sed to interpret this result as normal/abnor mal. MCHC (test code = 786-4) 30.8 See_Comment L [A utomated message] The system [employer] generated this result transmitted ref erence range: 32.2 - 3 5.5 GM/DL. The refe rence range was not u sed to interpret this result as normal/abnor mal. Hematocrit (test code = 26.3 % 34.1-44.9 L 4544-3) MCV (test code = 787-2) 104.0 fL 79.4-94.8 H MCH (test code = 785-6) 32.0 pg 25.6-32.2 RDW (test code = 788-0) 19.5 % 11.7-14.4 H Platelets (test code = 96 See_Comment L [Aut omated message] 777-3) The system [employer] generated this result transmitted ref erence range: 150 - 45 0 K/CU MM. The referen ce range was not u sed to interpret this result as normal/abnor mal. MPV (test code = 10.6 fL 9.4-12.3 98767-7) nRBC (test code = 413) 0 See_Comment [Aut omated message] The system [employer] generated this result transmitted ref erence range: 0 - 0 /1 00 WBC. The refere nce range was not u sed to interpret this result as normal/abnor mal. % Neutros (test code = 72 % 429) % Lymphs (test code = 13 % 430) % Monos (test code = 11 % 431) % Eos (test code = 432) 4 % % Baso (test code = 437) 1 % # Neutros (test code = 5.65 See_Comment [Aut omated message] 670) The system [employer] generated this result transmitted ref erence range: 1.56 - 6 .13 K/L. The refe rence range was not u sed to interpret this result as normal/abnor mal. # Lymphs (test code = 0.99 See_Comment L [Auto mated message] 414) The system [employer] generated this result transmitted ref erence range: 1.18 - 3 .74 K/L. The refe rence range was not u sed to interpret this result as normal/abnor mal. # Monos (test code = 0.83 See_Comment H [Autom ated message] 415) The system [employer] generated this result transmitted ref erence range: 0.24 - 0 .36 K/L. The refe rence range was not u sed to interpret this result as normal/abnor mal. # Eos (test code = 416) 0.33 See_Comment [Au tomated message] The system [employer] generated this result transmitted ref erence range: 0.04 - 0 .36 K/L. The refe rence range was not u sed to interpret this result as normal/abnor mal. # Baso (test code = 417) 0.04 See_Comment [A utomated message] The system [employer] generated this result transmitted ref erence range: 0.01 - 0 .08 K/L. The refe rence range was not u sed to interpret this result as normal/abnor mal. Immature 1 % 0-1 Granulocytes-Relative (test code = 2801) Lab Interpretation (test Abnormal code = 17187-3) [facility] W/PLT COUNT & AUTO [id number] 06:38:55 Test Item Value Reference Range Interpretation [...] = 2801) CBC W/PLT COUNT & AUTO [id number] 10:18:58 Test Item Value Reference Range Interpretation [...] (BEAKER) (test code = 2801) BASIC METABOLIC [id number] 08:06:00 Test Item Value Reference Range Interpretation [...] S NOT APPLICABLE FOR DIALYSIS PATIEN TS. Consulting Psychiatrist ID - MARLON Ferrera moderately ictericHEPATIC FUNCTION [id number] 08:06:00 Test Item Value Reference Range Interpretation [...] (test code = 19 U/L 6-55 347) Consulting Psychiatrist GINA Ferrera moderately ictericPROTHROMBIN TIME/[id number] 07:51:15 Test Item Value Reference Range Interpretation Comments PROTIME (BEAKER) 20.6 seconds 11.9-14.2 H (test code = 759) INR (BEAKER) (test 1.80 See_Comment [Automat ed message] code = 370) The system [employer] generated this result transmitted ref erence range: <=5.90. The reference range was not used to int erpret this result as normal/abnormal . RECOMMENDED COUMADIN/WARFARIN INR THERAPY RANGESSTANDARD DOSE: 2.0 - 3.0 Includes: PROPHYLAXIS for venous thrombosis, systemic embolization; TREATMENT for venous thrombosis and/or pulmonary embolus.HIGH RISK: Target INR is 2.5-3.5 for patients with mechanical heart valves.HEPATIC FUNCTION [id number] 07:41:30 Test Item Value Reference Range Interpretation [...] (test code = 21 U/L 6-55 347) Consulting Psychiatrist ID - PIAYA LSpecimen moderately ictericBASIC METABOLIC [id number] 07:41:29 Test Item Value Reference Range Interpretation [...] S NOT APPLICABLE FOR DIALYSIS PATIEN TS. Consulting Psychiatrist ID - PIAYA LSpecimen moderately ictericPROTHROMBIN TIME/[id number] 07:34:58 Test Item Value Reference Range Interpretation Comments PROTIME (BEAKER) 19.3 seconds 11.9-14.2 H (test code = 759) INR (BEAKER) (test 1.66 See_Comment [Automat ed message] code = 370) The system [employer] generated this result transmitted ref erence range: <=5.90. The reference range was not used to int erpret this result as normal/abnormal . RECOMMENDED COUMADIN/WARFARIN INR THERAPY RANGESSTANDARD DOSE: 2.0 - 3.0 Includes: PROPHYLAXIS for venous thrombosis, systemic embolization; TREATMENT for venous thrombosis and/or pulmonary embolus.HIGH RISK: Target INR is 2.5-3.5 for patients with mechanical heart valves.CBC W/PLT COUNT & AUTO [id number] 07:30:35 Test Item Value Reference Range Interpretation [...] PERCENT (BEAKER) (test code = 2801) VITAMIN [id number] 07:00:04 Test Item Value Reference Range Interpretation Comments VITAMIN B12 (BEAKER) (test code = > pg/mL 213-816 H 774) Consulting Psychiatrist ID Ajay FRANK WBASIC METABOLIC [id number] 06:43:51 Test Item Value Reference Range Interpretation [...] S NOT APPLICABLE FOR DIALYSIS PATIEN TS. Consulting Psychiatrist ID - ZAC WOperator ID - MARLON LSpecimen slightly ictericVITAMIN D, [id number] 05:27:33 Test Item Value Reference Range Interpretation Comments VITAMIN D 25-OH (BEAKER) (test code 4.4 ng/mL 6.6-49.9 L = 2764) Effective 05/22/2017: Reference Range ChangeNew: 6.6-49.9 ng/mL Previous: 13.0- 47.8 ng/mLRecommendedVitamin D Target Range: 30.0-40.0 ng/mLOperator ID Ajay MASON LC-REACTIVE [id number] 05:23:46 Test Item Value Reference Range Interpretation Comments C-REACTIVE PROTEIN (BEAKER) (test 1.00 mg/dL 0.00-0.50 H code = 676) Consulting Psychiatrist ID - ZAC [id number] 05:23:45 Test Item Value Reference Range Interpretation Comments MAGNESIUM (BEAKER) (test code = 1.6 mg/dL 1.6-2.6 627) Consulting Psychiatrist ID - ZAC WHEPATIC FUNCTION [id number] 05:23:45 Test Item Value Reference Range Interpretation [...] (test code = 17 U/L 6-55 347) Consulting Psychiatrist ID - ZAC WSpecimen slightly ictericPROTHROMBIN TIME/[id number] 04:53:27 Test Item Value Reference Range Interpretation Comments PROTIME (BEAKER) 22.4 seconds 11.9-14.2 H (test code = 759) INR (BEAKER) (test 2.00 See_Comment [Automat ed message] code = 370) The system [employer] generated this result transmitted ref erence range: <=5.90. The reference range was not used to int erpret this result as normal/abnormal . RECOMMENDED COUMADIN/WARFARIN INR THERAPY RANGESSTANDARD DOSE: 2.0 - 3.0 Includes: PROPHYLAXIS for venous thrombosis, systemic embolization; TREATMENT for venous thrombosis and/or pulmonary embolus.HIGH RISK: Target INR is 2.5-3.5 for patients with mechanical heart valves.CBC W/PLT COUNT & AUTO [id number] 04:49:49 Test Item Value Reference Range Interpretation [...] (BEAKER) (test code = 2801) Basic Metabolic [id number] 08:26:03 Test Item Value Reference Range Interpretation Comments Sodium (test code = 137 meq/L 341-719 2190-2) Potassium (test code 3.5 meq/L 3.5-5.1 = 2823-3) Chloride (test code = 109 meq/L 98-107 H 2075-0) CO2 (test code = 24 meq/L 22-29 2028-9) BUN (test code = 13 mg/dL 7-21 3094-0) Creatinine (test code 0.73 mg/dL 0.57-1.25 = 2160-0) Glucose (test code = 85 mg/dL 70-105 2345-7) Calcium (test code = 7.7 mg/dL 8.4-10.2 L 50242-6) EGFR (test code = 81 mL/min/1.73 [place] [address]-7) NOT ACCURATE CREATININE CLEARANCE IN PREDICTING GLOMERULAR FILTRATION RATE . ESTIMATED GFR I S NOT APPLICABLE FOR DIALYSIS PATIENTS. REJI (test code = REJI) Consulting Psychiatrist ID - PIRADHA Davistor ID - DBSpecimen slightly icteric Lab Interpretation Abnormal (test code = 15807-6) [facility] CampusBAS[facility]OL[facility] [id number] 08:26:03 Test Item Value Reference Range Interpretation [...] S NOT APPLICABLE FOR DIALYSIS PATIEN TS. Consulting Psychiatrist ID - MARLON Shannananaid ID - DBSpecimen slightly ictericHepatic function [id number] 07:24:45 Test Item Value Reference Range Interpretation Comments Protein, Total (test 4.9 See_Comment L [Autom ated code = 2885-2) message] The system which generated this result transmitted reference range : 6.0 - 8.3 gm/dL . The reference range was not used to interpr et this result as normal/abnormal . Albumin (test code = 2.2 g/dL 3.5-5.0 L 74689-5) Total Bilirubin (test 4.0 mg/dL 0.2-1.2 H code = 1974-2) Bilirubin, Direct 1.5 mg/dL 0.1-0.5 H (test code = 1967-7) Alkaline Phosphatase 111 U/L 40-150 (test code = 6768-6) AST (test code = 53 U/L 5-34 H 1920-8) ALT (test code = 17 U/L 6-55 1742-6) REJI (test code = REJI) Consulting Psychiatrist ID Ajay MASON LSpecnicole slightly icteric Lab Interpretation Abnormal (test code = 83420-4) [facility] 07:24:45 Test Item Value Reference Range Interpretation Comments Magnesium (test code = 1.7 mg/dL 1.6-2.6 83248-5) REJI (test code = REJI) Consulting Psychiatrist ID Ajay MASON L Lab Interpretation (test Normal code = 96076-3) [facility]2022-01-31 07:24:45 Test Item Value Reference Range Interpretation Comments MAGNESIUM (BEAKER) (test code = 1.7 mg/dL 1.6-2.6 627) Consulting Psychiatrist ID Ajay MASON LHEPATIC FUNCTION [id number] 07:24:45 Test Item Value Reference Range Interpretation [...] (test code = 17 U/L 6-55 347) Consulting Psychiatrist ID - MARLON Ferrera slightly ictericProthrombin time/[id number] 06:40:57 Test Item Value Reference Interpretation Comments Range Protime (test code = 22.5 See_Comment H [Autom ated 4352-2) message] The system which generated this result transmitted reference range : 11.9 - 14.2 seconds. The reference range was not used to interpret this result as normal/abnormal . INR (test code = 2.01 See_Comment [Automated 8401-6) message] The system which generated this result [...] valves. Lab Interpretation Abnormal (test code = 66535-7) [facility] CampusPROTHROMBIN TIME/[id number] 06:40:57 Test Item Value Reference Range Interpretation Comments PROTIME (BEAKER) 22.5 seconds 11.9-14.2 H (test code = 759) INR (BEAKER) (test 2.01 See_Comment [Automat ed message] code = 370) The system [employer] generated this result transmitted ref erence range: <=5.90. The reference range was not used to int erpret this result as normal/abnormal . RECOMMENDED COUMADIN/WARFARIN INR THERAPY RANGESSTANDARD DOSE: 2.0 - 3.0 Includes: PROPHYLAXIS for venous thrombosis, systemic embolization; TREATMENT for venous thrombosis and/or pulmonary embolus.HIGH RISK: Target INR is 2.5-3.5 for patients with mechanical heart valves.CBC with platelet count + automated [id number] 06:36:06 Test Item Value Reference Range Interpretation Comments WBC (test code = 6690-2) 10.6 See_Comment H [A utomated message] The system [employer] generated this result transmitted ref erence range: 3.5 - 10 .5 K/L. The refe rence range was not u sed to interpret this result as normal/abnor mal. RBC (test code = 789-8) 2.76 See_Comment L [Au tomated message] The system [employer] generated this result transmitted ref erence range: 3.93 - 5 .22 M/L. The refe rence range was not u sed to interpret this result as normal/abnor mal. MCHC (test code = 786-4) 31.5 See_Comment L [A utomated message] The system [employer] generated this result transmitted ref erence range: [...] L [Aut omated message] 777-3) The system [employer] generated this result transmitted ref erence range: 150 - 45 0 K/CU MM. The referen ce range was not u sed to interpret this result as normal/abnor mal. MPV (test code = 9.6 fL 9.4-12.3 60337-7) nRBC (test code = 413) 0 See_Comment [Aut omated message] The system [employer] generated this result transmitted ref erence range: [...] H [Aut omated message] 670) The system [employer] generated this result transmitted ref erence range: 1.56 - 6 .13 K/L. The refe rence range was not u sed to interpret this result as normal/abnor mal. # Lymphs (test code = 1.18 See_Comment [Auto mated message] 414) The system [employer] generated this result transmitted ref erence range: 1.18 - 3 .74 K/L. The refe rence range was not u sed to interpret this result as normal/abnor mal. # Monos (test code = 0.64 See_Comment H [Autom ated message] 415) The system [employer] generated this result transmitted ref erence range: 0.24 - 0 .36 K/L. The refe rence range was not u sed to interpret this result as normal/abnor mal. # Eos (test code = 416) 0.31 See_Comment [Au tomated message] The system [employer] generated this result transmitted ref erence range: 0.04 - 0 .36 K/L. The refe rence range was not u sed to interpret this result as normal/abnor mal. # Baso (test code = 417) 0.02 See_Comment [A utomated message] The system [employer] generated this result transmitted ref erence range: 0.01 - 0 .08 K/L. The refe rence range was not u sed to interpret this result as normal/abnor mal. Immature 1 % 0-1 Granulocytes-Relative (test code = 2801) Lab Interpretation (test Abnormal code = 64230-7) [facility] W/PLT COUNT & AUTO [id number] 06:36:06 Test Item Value Reference Range Interpretation [...] (BEAKER) (test code = 2801) BASIC METABOLIC [id number] 09:04:28 Test Item Value Reference Range Interpretation [...] S NOT APPLICABLE FOR DIALYSIS PATIEN TS. Consulting Psychiatrist ID - DBSpecimen moderately kkogmljPZRTEYWEC0765-90-77 08:26:10 Test Item Value Reference Range Interpretation Comments MAGNESIUM (BEAKER) (test code = 1.8 mg/dL 1.6-2.6 627) Consulting Psychiatrist ID - DBHEPATIC FUNCTION PGHRS2213-19-10 08:26:10 Test Item Value Reference Range Interpretation [...] (test code = 17 U/L 6-55 347) Consulting Psychiatrist ID - DBSpecimen moderately ictericPROTHROMBIN TIME/[id number] 07:14:13 Test Item Value Reference Range Interpretation Comments PROTIME (BEAKER) 23.1 seconds 11.9-14.2 H (test code = 759) INR (BEAKER) (test 2.08 See_Comment [Automat ed message] code = 370) The system [employer] generated this result transmitted ref erence range: <=5.90. The reference range was not used to int erpret this result as normal/abnormal . RECOMMENDED COUMADIN/WARFARIN INR THERAPY RANGESSTANDARD DOSE: 2.0 - 3.0 Includes: PROPHYLAXIS for venous thrombosis, systemic embolization; TREATMENT for venous thrombosis and/or pulmonary embolus.HIGH RISK: Target INR is 2.5-3.5 for patients with mechanical heart valves.CBC W/PLT COUNT & AUTO [id number] 07:07:41 Test Item Value Reference Range Interpretation [...] (BEAKER) (test code = 2801) BASIC METABOLIC [id number] 09:04:18 Test Item Value Reference Range Interpretation [...] S NOT APPLICABLE FOR DIALYSIS PATIEN TS. Consulting Psychiatrist ID - DBOperator ID - DBSpecimen moderately ictericHEPATIC FUNCTION [id number] 07:53:06 Test Item Value Reference Range Interpretation [...] (test code = 16 U/L 6-55 347) Consulting Psychiatrist ID - DBSpecimen moderately ictericManual Asdzpubugpgp5644-03-84 07:50:25 Test Item Value Reference Range Interpretation [...] = 3438) REJI (test code = REJI) Consulting Psychiatrist ID - michaela balsaraUser comments: Slide comments: Lab Interpretation (test Abnormal code = 11386-0) [facility] CampusManual Xjpocuwpmpft4208-59-67 07:50:25 Test Item Value Reference Range Interpretation [...] = 3438) REJI (test code = REJI) Consulting Psychiatrist ID - michaela herndonUser comments: Slide comments: Lab Interpretation (test Abnormal code = 90530-2) [facility](CELLAVISION MANUAL DIFF)2021-09-09 07:50:25 Test Item Value Reference [...] CONCENTRATION Decreased (CELLAVISION)(BEAKER) (test code = 3438) Consulting Psychiatrist ID - michaela Cutler comments: Slide comments:CBC W/PLT COUNT & AUTO [id number] 07:50:24 Test Item Value Reference Range Interpretation [...] WBC 0-0 (test code = 413) PROTHROMBIN TIME/[id number] 06:28:05 Test Item Value Reference Range Interpretation Comments PROTIME (BEAKER) 24.0 seconds 11.9-14.2 H (test code = 759) INR (BEAKER) (test 2.18 See_Comment [Automat ed message] code = 370) The system [employer] generated this result transmitted ref erence range: [...] = No growth in 5 days 6463-4) [facility] CampusBlood Culture - Routine (Right Venipuncture) 2021-09-08 14:01:01 Test Item Value Reference Range Interpretation Comments Result (test code = No growth in 5 days 6463-4) [facility] CampusBLOOD [id number] 14:01:01 Test Item Value Reference Range Interpretation Comments CULTURE (BEAKER) (test No growth in 5 days code = 1095) Sjnzuaf6096-06-18 11:09:32 Test Item Value Reference Range Interpretation Comments Ammonia (test code = 35 See_Comment [Autom ated 69870-3) message] The system which generated this result transmit barron reference range : 18 - 72 mol/L . The reference range was not u sed to interpret th is result as normal/abnormal . REJI (test code = REJI) Consulting Psychiatrist ID - PIAYA L Lab Interpretation Normal (test code = 42615-2) [facility] CampusAmmonia2022-01-28 11:09:32 Test Item Value Reference Range Interpretation Comments Ammonia (test code = 35 See_Comment [Autom ated 96422-5) message] The system which generated this result transmit barron reference range : 18 - 72 mol/L . The reference range was not u sed to interpret th is result as normal/abnormal . REJI (test code = REJI) Consulting Psychiatrist ID - PIAYA L Lab Interpretation Normal (test code = 36110-5) [facility]2022-01-28 11:09:32 Test Item Value Reference Range Interpretation Comments AMMONIA (BEAKER) (test code = 348) 35 mol/L 18-72 Consulting Psychiatrist ID - PIAYA LCBC W/PLT COUNT & AUTO [id number] 07:57:44 Test Item Value Reference Range Interpretation [...] CONCENTRATION Decreased (CELLAVISION)(BEAKER) (test code = 3438) Consulting Psychiatrist ID Ajay ChandraMartitaperla comments: Slide comments:BASIC METABOLIC [id number] 06:46:23 Test Item Value Reference Range Interpretation [...] S NOT APPLICABLE FOR DIALYSIS PATIEN TS. Consulting Psychiatrist GINA Ajay ZAC WOODSpecimen slightly awpgcbcSnjgkfnpzp6052-78-13 06:42:47 Test Item Value Reference Range Interpretation Comments Phosphorus (test code = 2.4 mg/dL 2.3-4.7 2777-1) REJI (test code = REJI) Consulting Psychiatrist ID Ajay Neal Lab Interpretation (test Normal code = 18747-9) [facility] CampusPhosphorus2022-01-28 06:42:47 Test Item Value Reference Range Interpretation Comments Phosphorus (test code = 2.4 mg/dL 2.3-4.7 2777-1) REJI (test code = REJI) Consulting Psychiatrist ID Ajay ZAC W Lab Interpretation (test Normal code = 31078-9) [facility] CampusPHOSPHORUS2022-01-28 06:42:47 Test Item Value Reference Range Interpretation Comments PHOSPHORUS (BEAKER) (test code = 2.4 mg/dL 2.3-4.7 604) Consulting Psychiatrist ID - ZAC WHEPATIC FUNCTION [id number] 06:42:47 Test Item Value Reference Range Interpretation [...] (test code = 15 U/L 6-55 347) Consulting Psychiatrist ID - ZAC WSpecimen slightly ictericPROTHROMBIN TIME/[id number] 05:37:24 Test Item Value Reference Range Interpretation Comments PROTIME (BEAKER) 26.6 seconds 11.9-14.2 H (test code = 759) INR (BEAKER) (test 2.48 See_Comment [Automat ed message] code = 370) The system [employer] generated this result transmitted ref erence range: [...] CONCENTRATION Decreased (CELLAVISION)(BEAKER) (test code = 3438) Consulting Psychiatrist ID - Cindy Gibosn comments: Slide comments:CBC W/PLT COUNT & AUTO MJHIMIRZQVFI0456-25-73 09:40:43 Test Item Value Reference Range Interpretation [...] 0-0 (test code = 413) BASIC METABOLIC [id number] 07:22:45 Test Item Value Reference Range Interpretation [...] S NOT APPLICABLE FOR DIALYSIS PATIEN TS. Consulting Psychiatrist ID Ajay MASON LSpecimen slightly sggkzvbUUIJWYPPUF5000-43-67 07:16:27 Test Item Value Reference Range Interpretation Comments PHOSPHORUS (BEAKER) (test code = 2.2 mg/dL 2.3-4.7 L 604) Consulting Psychiatrist ID Ajay MASON LHEPATIC FUNCTION [id number] 07:16:27 Test Item Value Reference Range Interpretation [...] (test code = 17 U/L 6-55 347) Consulting Psychiatrist ID Ajay KENTpecimen slightly ictericBLOOD [id number] 07:00:33 Test Item Value Reference Range Interpretation Comments CULTURE (BEAKER) (test No growth in 5 days code = 1095) PROTHROMBIN TIME/[id number] 06:15:38 Test Item Value Reference Range Interpretation Comments PROTIME (BEAKER) 25.1 seconds 11.9-14.2 H (test code = 759) INR (BEAKER) (test 2.31 See_Comment [Automat ed message] code = 370) The system [employer] generated this result transmitted ref erence range: <=5.90. The reference range was not used to int erpret this result as normal/abnormal . RECOMMENDED COUMADIN/WARFARIN INR THERAPY RANGESSTANDARD DOSE: 2.0 - 3.0 Includes: PROPHYLAXIS for venous thrombosis, systemic embolization; TREATMENT for venous thrombosis and/or pulmonary embolus.HIGH RISK: Target INR is 2.5-3.5 for patients with mechanical heart valves.Ova and Parasite Hratyiojdnj2448-86-50 08:26:13 Test Item Value Reference Range Interpretation Comments O&P Direct Smear (test No ova or parasites No ova or code = 57195-2) seen parasites seen REJI (test code = REJI) See scanned report Lab Interpretation (test Normal code = 54520-8) [facility] CampusOva and Parasite Apoiectryad5280-81-28 08:26:13 Test Item Value Reference Range Interpretation Comments O&P Direct Smear (test No ova or parasites No ova or code = 17672-2) seen parasites seen REJI (test code = REJI) See scanned report Lab Interpretation (test Normal code = 72213-5) [facility] CampusPHOSPHORUS2022-01-26 07:29:32 Test Item Value Reference Range Interpretation Comments PHOSPHORUS (BEAKER) (test code = 1.5 mg/dL 2.3-4.7 LL 604) Consulting Psychiatrist ID - ZAC WBASIC METABOLIC [id number] 07:09:27 Test Item Value Reference Range Interpretation [...] S NOT APPLICABLE FOR DIALYSIS PATIEN TS. Consulting Psychiatrist ID - ZAC WOODSpecnicole slightly ictericPROTHROMBIN TIME/[id number] 06:57:19 Test Item Value Reference Range Interpretation Comments PROTIME (BEAKER) 23.2 seconds 11.9-14.2 H (test code = 759) INR (BEAKER) (test 2.09 See_Comment [Automat ed message] code = 370) The system [employer] generated this result transmitted ref erence range: [...] CONCENTRATION Decreased (CELLAVISION)(BEAKER) (test code = 3438) Consulting Psychiatrist ID - nabil Julian comments: Slide comments:[id number] 15:08:54 Test Item Value Reference Range Interpretation Comments PHOSPHORUS (BEAKER) (test code = 1.2 mg/dL 2.3-4.7 LL 604) Consulting Psychiatrist ID - BSBASIC METABOLIC [id number] 15:04:30 Test Item Value Reference Range Interpretation [...] S NOT APPLICABLE FOR DIALYSIS PATIEN TS. Consulting Psychiatrist ID - BSSpecimen slightly ictericHEPATIC FUNCTION [id number] 15:02:35 Test Item Value Reference Range Interpretation [...] (test code = 17 U/L 6-55 347) Consulting Psychiatrist ID - BSSpecimen slightly ictericPROTHROMBIN TIME/[id number] 14:50:10 Test Item Value Reference Range Interpretation Comments PROTIME (BEAKER) 24.9 seconds 11.9-14.2 H (test code = 759) INR (BEAKER) (test 2.28 See_Comment [Automat ed message] code = 370) The system [employer] generated this result transmitted ref erence range: <=5.90. The reference range was not used to int erpret this result as normal/abnormal . RECOMMENDED COUMADIN/WARFARIN INR THERAPY RANGESSTANDARD DOSE: 2.0 - 3.0 Includes: PROPHYLAXIS for venous thrombosis, systemic embolization; TREATMENT for venous thrombosis and/or pulmonary embolus.HIGH RISK: Target INR is 2.5-3.5 for patients with mechanical heart valves.CBC W/PLT COUNT & AUTO [id number] 14:44:53 Test Item Value Reference Range Interpretation [...] (test code = 413) Clostridium difficile GDH Qyfrj6354-10-11 21:23:26 Test Item Value Reference Range Interpretation Comments C. Difficle Toxin Positive Negative A (test code = 9130957860) C. Difficile GDH Positive Negative A Confirms Antigen (test code = Clostri dium 0798959687) difficile-assoc ia barron infection.First line therapy - [...] of kit performance was done by the [facility] Microbiology Lab prior to clinical use. Lab Interpretation Abnormal (test code = 59182-2) [facility] CampusClostridium difficile GDH [id number] 21:23:26 Test Item Value Reference Range Interpretation Comments C. Difficle Toxin Positive Negative A (test code = 0616743530) C. Difficile GDH Positive Negative A Confirms Antigen (test code = Clostri dium 0136947196) difficile-assoc ia barron infection.First line therapy - [...] of kit performance was done by the [facility] Microbiology Lab prior to clinical use. Lab Interpretation Abnormal (test code = 81672-2) [facility]. DIFFICILE GDH [id number] 21:23:26 Test Item Value Reference Range Interpretation Comments CDT TOXIN (test code Positive Negative A = 7011857224) CDT GDH ANTIGEN Positive Negative A Confirms Maria Esther stridium (test code = difficile-assoc iated 7859871186) infection.First line therapy - oral Vancomycin. Con [...] of kit performance was done by the [facility] MicrobiologyLab prior to clinical use.CT, CHEST, WITH [id number] 10:14:00Unlisted Reason for Exam - Click Yes and Enter Reason Below->No [facility] 1960 Sex: FFINAL [...] spleen. Small volume ascites. Signed: Quentin Sims [facility] Verified Date/Time: 09/04/2021 10:14:08 [facility], [id number] 10:14:00Unlisted Reason for Exam - Click Yes and Enter Reason Below->No Is this for enterography?->YesWill this procedure require oral contrast?->Yes [facility] 1960 Sex: FFINAL [...] spleen. Small volume ascites. Signed: Quentin Sims Verified Date/Time: 09/04/2021 10:14:08 (CELLAVISION MANUAL DIFF)2021-09-04 [...] CONCENTRATION Decreased (CELLAVISION)(BEAKER) (test code = 3438) Consulting Psychiatrist ID - michaela Cutler comments: Slide comments:CBC W/PLT COUNT & AUTO [id number] 07:25:32 Test Item Value Reference Range Interpretation [...] /100 WBC 0-0 (test code = 413) [id number] 06:26:19 Test Item Value Reference Range Interpretation Comments PHOSPHORUS (BEAKER) (test code = 1.5 mg/dL 2.3-4.7 LL 604) Consulting Psychiatrist ID - ZAC WComprehensive metabolic [id number] 06:18:30 Test Item Value Reference Range Interpretation Comments Protein, Total (test 4.7 See_Comment L [Autom ated code = 2885-2) message] The system which generated this result transmitted reference range : 6.0 - 8.3 gm/dL . The reference range was not used to interpr et this result as normal/abnormal . Albumin (test code = 2.7 g/dL 3.5-5.0 L 43940-6) Alkaline Phosphatase 85 U/L 40-150 (test code = 6768-6) Total Bilirubin (test 2.7 mg/dL 0.2-1.2 H code = 1974-) Sodium (test code = 134 meq/L 136-145 [...] (test code = 7.3 mg/dL 8.4-10.2 L 55250-3) AST (test code = 28 U/L 5-34 1920-8) ALT (test code = 14 U/L 6-55 1742-6) EGFR (test code = 53 mL/min/1.73 [place] [address]-5) NOT ACCURATE CREATININE CLEARANCE IN PREDICTING GLOMERULAR FILTRATION RATE . ESTIMATED GFR I S NOT APPLICABLE FOR DIALYSIS PATIENTS. REJI (test code = REJI) Consulting Psychiatrist ID - ZAC WSpecimen slightly icteric Lab Interpretation Abnormal (test code = 16441-3) [facility] CampusComprehensive metabolic [id number] 06:18:30 Test Item Value Reference Range Interpretation Comments Protein, Total (test 4.7 See_Comment L [Autom ated code = 2885-2) message] The system which generated this result transmitted reference range : 6.0 - 8.3 gm/dL . The reference range was not used to interpr et this result as normal/abnormal . Albumin (test code = 2.7 g/dL 3.5-5.0 L 53003-1) Alkaline Phosphatase 85 U/L 40-150 (test code = 6768-6) Total Bilirubin (test 2.7 mg/dL 0.2-1.2 H code = 1974-) Sodium (test code = 134 meq/L 136-145 [...] (test code = 7.3 mg/dL 8.4-10.2 L 69942-9) AST (test code = 28 U/L 5-34 1920-8) ALT (test code = 14 U/L 6-55 1742-6) EGFR (test code = 53 mL/min/1.[place] [address]-3) NOT ACCURATE CREATININE CLEARANCE IN PREDICTING GLOMERULAR FILTRATION RATE . ESTIMATED GFR I S NOT APPLICABLE FOR DIALYSIS PATIENTS. REJI (test code = REJI) Consulting Psychiatrist ID - ZAC WSpecimen slightly icteric Lab Interpretation Abnormal (test code = 94798-2) [facility] CampusCOMPREHENSIVE METABOLIC [id number] 06:18:30 Test Item Value Reference Range Interpretation [...] S NOT APPLICABLE FOR DIALYSIS PATIEN TS. Consulting Psychiatrist ID - ZAC WSpecimen slightly dcgzredZACIQQZWM3697-42-90 06:13:05 Test Item Value Reference Range Interpretation Comments MAGNESIUM (BEAKER) (test code = 2.3 mg/dL 1.6-2.6 627) Consulting Psychiatrist ID - ZAC W(CELLAVISION MANUAL DIFF)2021-09-03 14:33:56 [...] CONCENTRATION Decreased (CELLAVISION)(BEAKER) (test code = 3438) Consulting Psychiatrist ID - Claudine Rios comments: Slide comments:CBC W/PLT COUNT & AUTO [id number] 14:33:55 Test Item Value Reference Range Interpretation [...] (test code = 413) Hepatitis B surface wqqzsmgf7841-28-02 13:30:11 Test Item Value Reference Range Interpretation Comments Hep B S Ab (test code <8.0 See_Comment [Auto mated = 50963-1) message] The system which generated this result transmit barron reference range : <8.0 mIU/mL. Th e reference range was not used to interpret this result as normal/abnormal . REJI (test code = REJI) Consulting Psychiatrist ID - MARLON L Lab Interpretation Normal (test code = 57426-2) [facility] CampusHepatitis B surface [id number] 13:30:11 Test Item Value Reference Range Interpretation Comments Hep B S Ab (test code <8.0 See_Comment [Auto mated = 70122-1) message] The system which generated this result transmit barron reference range : <8.0 mIU/mL. Th e reference range was not used to interpret this result as normal/abnormal . REJI (test code = REJI) Consulting Psychiatrist ID - PIAYA L Lab Interpretation Normal (test code = 84393-0) [facility] CampusHEPATITIS B SURFACE [id number] 13:30:11 Test Item Value Reference Range Interpretation Comments HEPATITIS B SURFACE ANTIBODY < mIU/mL <8.0 (BEAKER) (test code = 647) Consulting Psychiatrist ID - PIRADHA LHepatitis A antibody, [id number] 13:23:53 Test Item Value Reference Range Interpretation Comments Hep A IgG (test code = Nonreactive Nonreactive 75800-5) REJI (test code = REJI) Consulting Psychiatrist ID - PIAYA L Lab Interpretation (test Normal code = 91646-4) [facility] CampusHepatitis A antibody, [id number] 13:23:53 Test Item Value Reference Range Interpretation Comments Hep A IgG (test code = Nonreactive Nonreactive 51515-9) REJI (test code = REJI) Consulting Psychiatrist ID - PIAYA L Lab Interpretation (test Normal code = 77304-7) [facility] CampusHEPATITIS A ANTIBODY, [id number] 13:23:53 Test Item Value Reference Range Interpretation Comments HEPATITIS A IGG ANTIBODY (BEAKER) Nonreactive Nonreactive (test code = 2797) Consulting Psychiatrist ID - MARLON LHepatitis B core antibody, [id number] 13:23:52 Test Item Value Reference Range Interpretation Comments Hep B Core Total Ab Nonreactive Nonreactive (test code = 52296-9) REJI (test code = REJI) Consulting Psychiatrist ID - PIAYA L Lab Interpretation (test Normal code = 61999-6) [facility] CampusHeuofl [facility] - [facility] hospitaltis [facility] [id number] 13:23:52 Test Item Value Reference Range Interpretation Comments Hepatitis C Ab (test Nonreactive Nonreactive code = 95813-7) REJI (test code = REJI) Consulting Psychiatrist ID - PIAYA L Lab Interpretation (test Normal code = 62849-6) [facility] CampusHepatitis B core antibody, [id number] 13:23:52 Test Item Value Reference Range Interpretation Comments Hep B Core Total Ab Nonreactive Nonreactive (test code = 36713-1) REJI (test code = REJI) Consulting Psychiatrist ID - MARLON Zapien Lab Interpretation (test Normal code = 10998-9) [facility] CampusHEPATITIS C [id number] 13:23:52 Test Item Value Reference Range Interpretation Comments HEPATITIS C ANTIBODY (BEAKER) Nonreactive Nonreactive (test code = 367) Consulting Psychiatrist ID - MARLON LHEPATITIS B CORE ANTIBODY, [id number] 13:23:52 Test Item Value Reference Range Interpretation Comments HEPATITIS B CORE TOTAL ANTIBODY Nonreactive Nonreactive (BEAKER) (test code = 497) Consulting Psychiatrist ID - MARLON LHepatitis B surface dppeecs3410-69-76 13:23:51 Test Item Value Reference Range Interpretation Comments HBsAg Screen (test code Nonreactive Nonreactive = 5195-3) REJI (test code = REJI) Specimen is considered negative for HBsAg. Lab Interpretation (test Normal code = 35528-9) [facility] [id number] 13:23:51 Test Item Value Reference Range Interpretation [...] S NOT APPLICABLE FOR DIALYSIS PATIEN TS. Consulting Psychiatrist ID - MARLON LSpecimen slightly izejjyuATTJEIJKW9546-19-83 12:58:51 Test Item Value Reference Range Interpretation Comments MAGNESIUM (BEAKER) (test code = 2.1 mg/dL 1.6-2.6 627) Consulting Psychiatrist ID - MARLNO [id number] 12:58:51 Test Item Value Reference Range Interpretation Comments PHOSPHORUS (BEAKER) (test code = 2.3 mg/dL 2.3-4.7 604) Consulting Psychiatrist ID - MARLON LPROTHROMBIN TIME/[id number] 12:56:09 Test Item Value Reference Range Interpretation Comments PROTIME (BEAKER) 23.4 seconds 11.9-14.2 H (test code = 759) INR (BEAKER) (test 2.10 See_Comment [Automat ed message] code = 370) The system [employer] generated this result transmitted ref erence range: <=5.90. The reference range was not used to int erpret this result as normal/abnormal . RECOMMENDED COUMADIN/WARFARIN INR THERAPY RANGESSTANDARD DOSE: 2.0 - 3.0 Includes: PROPHYLAXIS for venous thrombosis, systemic embolization; TREATMENT for venous thrombosis and/or pulmonary embolus.HIGH RISK: Target INR is 2.5-3.5 for patients with mechanical heart valves.Urine [id number] 12:15:06 Test Item Value Reference Range Interpretation Comments Result (test code = 6463-4) [facility] tlvfugh8041[facility]21-90 12:15:06 Test Item Value Reference Range Interpretation Comments Result (test code = 6463-4) No growth [facility] Profile by PCR -ID [id number] 12:43:22 Test Item Value Reference Range Interpretation Comments CAMPYLOBACTER (PCR) Not detected Not detected (test code = 31243-2) PLESIOMONAS SHIGELLOIDES Not detected Not detected (PCR) (test code = 56341-2) SALMONELLA (PCR) (test Not detected Not detected code = 40916-8) YERSINIA ENTEROCOLITICA Not detected Not detected (PCR) (test code = 92537-8) VIBRIO CHOLERAE (PCR) Not detected Not detected (test code = 74793-6) ENTEROAGGREGATIVE E. Not detected Not detected COLI (EAEC) BY PCR (test code = 54908-7) ENTEROPATHOGENIC E. COLI Not detected Not detected (EPEC) BY PCR (test code = 59420-5) ENTEROTOXIGENIC E. COLI Not detected Not detected (ETEC) LT/ST BY PCR (test code = 71063-2) SHIGA-LIKE Not detected Not detected TOXIN-PRODUCING E. COLI (STEC) STX1/STX2 (test code = 73568-4) E. COLI O157 (PCR) (test code = 75623-4) SHIGELLA/ENTEROINVASIVE Not detected Not detected E. COLI (EIEC) BY PCR (test code = 63828-8) CRYPTOSPORIDIUM (PCR) Not detected Not detected (test code = 67734-0) CYCLOSPORA CAYETANENSIS Not detected Not detected (PCR) (test code = 20808-1) ENTAMOEBA HISTOLYTICA Not detected Not detected (PCR) (test code = 96525-5) GIARDIA LAMBLIA (PCR) Not detected Not detected (test code = 81899-1) ADENOVIRUS F 40/41 (PCR) Not detected Not detected (test code = 99182-3) ASTROVIRUS (PCR) (test Not detected Not detected code = 19623-7) NOROVIRUS GI/GII (PCR) Not detected Not detected (test code = 68742-0) ROTAVIRUS A (PCR) (test Not detected Not detected code = 31880-3) SAPOVIRUS (I, II, IV, V) Not detected Not detected BY PCR (test code = 85084-2) VIBRIO Not detected Not detected (PARAHAEMOLYTICUS, VULNIFICUS) (test code = 28582-3) REJI (test code = REJI) Other viruses, parasites and bacteria not targeted by this PCR panel cannot be excluded; therefore clinical correlation and follow up of serology, culture results, and other molecular studies is required. The results are not intended to be used as the sole means for clinical diagnosis or patient management decisions. This sample was tested at the [facility] Molecular Diagnostics Laboratory using the [employer] Gastrointestinal Panel. It is FDA cleared and has been verified and approved by the [facility] for clinical use. This laboratory is CLIA-certified and [employer] (CAP)-accredited to perform high complexity testing. [facility] CampusGI Pathogen Profile by PCR -ID [id number] 12:43:22 Test Item Value Reference Range Interpretation Comments CAMPYLOBACTER PCR (test Not detected Not detected code = 92384-3) PLESIOMONAS SHIGELLOIDES Not detected Not detected (PCR) (test code = 20379-2) SALMONELLA (PCR) (test Not detected Not detected code = 48826-2) YERSINIA ENTEROCOLITICA Not detected Not detected (PCR) (test code = 62963-4) VIBRIO CHOLERAE (PCR) Not detected Not detected (test code = 77225-0) ENTEROAGGREGATIVE E. Not detected Not detected COLI (EAEC) BY PCR (test code = 98559-9) ENTEROPATHOGENIC E. COLI Not detected Not detected (EPEC) BY PCR (test code = 99951-5) ENTEROTOXIGENIC E. COLI Not detected Not detected (ETEC) LT/ST BY PCR (test code = 49872-5) SHIGA-LIKE Not detected Not detected TOXIN-PRODUCING E. COLI (STEC) STX1/STX2 (test code = 93003-2) E. COLI O157 (PCR) (test code = 29083-6) SHIGELLA/ENTEROINVASIVE Not detected Not detected E. COLI (EIEC) BY PCR (test code = 33839-9) CRYPTOSPORIDIUM (PCR) Not detected Not detected (test code = 62888-9) CYCLOSPORA CAYETANENSIS Not detected Not detected (PCR) (test code = 04946-4) ENTAMOEBA HISTOLYTICA Not detected Not detected (PCR) (test code = 39015-9) GIARDIA LAMBLIA (PCR) Not detected Not detected (test code = 69875-7) ADENOVIRUS F 40/41 (PCR) Not detected Not detected (test code = 84625-4) ASTROVIRUS (PCR) (test Not detected Not detected code = 96592-6) NOROVIRUS GI/GII (PCR) Not detected Not detected (test code = 70784-0) ROTAVIRUS A (PCR) (test Not detected Not detected code = 42903-6) SAPOVIRUS (I, II, IV, V) Not detected Not detected BY PCR (test code = 37611-1) VIBRIO Not detected Not detected (PARAHAEMOLYTICUS, VULNIFICUS) (test code = 14243-1) REJI (test code = REJI) Other viruses, parasites and bacteria not targeted by this PCR panel cannot be excluded; therefore clinical correlation and follow up of serology, culture results, and other molecular studies is required. The results are not intended to be used as the sole means for clinical diagnosis or patient management decisions. This sample was tested at the [facility] Molecular Diagnostics Laboratory using the [employer] Gastrointestinal Panel. It is FDA cleared and has been verified and approved by the [facility] Molecular Diagnostics Laboratory for clinical use. This laboratory is CLIA-certified and [employer] (CAP)-accredited to perform high complexity testing. [facility] CampusGI PATHOGEN PROFILE BY [id number] 12:43:22 Test Item Value Reference Range Interpretation Comments CAMPYLOBACTER (PCR) (test code = Not detected Not detected 20160214) PLESIOMONAS SHIGELLOIDES (PCR) Not detected Not detected (test code = 20160218) SALMONELLA (PCR) (test code = Not detected Not detected ) YERSINIA ENTEROCOLITICA (PCR) Not detected Not detected (test code = 8740363) VIBRIO CHOLERAE (PCR) (test code Not detected Not detected = 20160313) ENTEROAGGREGATIVE E. COLI (EAEC) Not detected Not detected BY PCR (test code = 9188712) ENTEROPATHOGENIC E. COLI (EPEC) Not detected Not detected BY PCR (test code = 5999283) ENTEROTOXIGENIC E. COLI (ETEC) Not detected Not detected LT/ST BY PCR (test code = 8711094) SHIGA-LIKE TOXIN-PRODUCING E. Not detected Not detected COLI (STEC) STX1/STX2 (test code = 9394089) E. COLI O157 (PCR) (test code = 4441911) SHIGELLA/ENTEROINVASIVE E. COLI Not detected Not detected (EIEC) BY PCR (test code = 20160319) CRYPTOSPORIDIUM (PCR) (test code Not detected Not detected = 20160320) CYCLOSPORA CAYETANENSIS (PCR) Not detected Not detected (test code = 8941075) ENTAMOEBA HISTOLYTICA (PCR) Not detected Not detected (test code = 6550031) GIARDIA LAMBLIA (PCR) (test code Not detected [...] detected Not detected VULNIFICUS) (test code = 7122290) Other viruses, parasites and bacteria not targeted by this PCR panel cannot be excluded; therefore clinical correlation and follow up of serology, culture results, and other molecular studies is required. The results are not intended to be used as the sole means for clinical diagnosis or patient management decisions. This sample was tested at the [facility] Molecular Diagnostics Laboratory using the [employer] Gastrointestinal Panel. It is FDA cleared and has been verified and approved by the [facility] Molecular Diagnostics Laboratory for clinical [...] CONCENTRATION Decreased (CELLAVISION)(BEAKER) (test code = 3438) Consulting Psychiatrist ID - Ishanperla comments: Slide comments:CBC W/PLT COUNT & AUTO [id number] 08:49:57 Test Item Value Reference Range Interpretation [...] (test code = 413) Vitamin B12 and Qdktdy2841-37-29 07:20:11 Test Item Value Reference Range Interpretation Comments Vitamin B12 (test 1116 pg/mL 213-816 H code = 2132-9) Folate (test code = 3.50 ng/mL See_Comment L [Automa barron 2284-8) message] The system which generated this result transmit barron reference range : >=7.00. The reference range was not used to interpret this result as normal/abnormal . REJI (test code = REJI) Consulting Psychiatrist ID - SHAQUILLE Reynolds Lab Interpretation Abnormal (test code = 28783-9) [facility] CampusVitamin B12 and Byanck3110-50-94 07:20:11 Test Item Value Reference Range Interpretation Comments Vitamin B12 (test 1116 pg/mL 213-816 H code = 2132-9) Folate (test code = 3.50 ng/mL See_Comment L [Automa barron 2284-8) message] The system which generated this result transmit barron reference range : >=7.00. The reference range was not used to interpret this result as normal/abnormal . REJI (test code = REJI) Consulting Psychiatrist ID - SHAQUILLE Reynolds Lab Interpretation Abnormal (test code = 78160-7) [facility] CampusVITAMIN B12 AND [id number] 07:20:11 Test Item Value Reference Range Interpretation Comments VITAMIN B12 (BEAKER) 1116 pg/mL 213-816 H (test code = 774) FOLATE (BEAKER) 3.50 ng/mL See_Comment L [Automated message] (test code = 362) The system which generated this result transmitted ref erence range: >=7.00. The reference range was not used to interpr et this result as normal/abnormal . Consulting Psychiatrist ID - SHAQUILLE MCOMPREHENSIVE METABOLIC [id number] 06:57:06 Test Item Value Reference Range Interpretation [...] S NOT APPLICABLE FOR DIALYSIS PATIEN TS. Consulting Psychiatrist GINA CORBIN MSpecimen slightly ictericC-Reactive Zmvvyso6012-53-02 06:55:26 Test Item Value Reference Range Interpretation Comments CRP (test code = 676) 4.64 mg/dL 0.00-0.50 H REJI (test code = REJI) Consulting Psychiatrist GINA CORBIN M Lab Interpretation (test Abnormal code = 90120-0) [facility] CampusPHOSPHORUS2022-01-22 06:55:26 Test Item Value Reference Range Interpretation Comments PHOSPHORUS (BEAKER) (test code = 1.8 mg/dL 2.3-4.7 L 604) Consulting Psychiatrist GINA CORBIN MC-REACTIVE [id number] 06:55:26 Test Item Value Reference Range Interpretation Comments C-REACTIVE PROTEIN (BEAKER) (test 4.64 mg/dL 0.00-0.50 H code = 676) Consulting Psychiatrist ID - SHAQUILLE GMCVVANMBQ8026-77-74 06:55:25 Test Item Value Reference Range Interpretation Comments MAGNESIUM (BEAKER) (test code = 2.3 mg/dL 1.6-2.6 627) Consulting Psychiatrist ID - SHAQUILLE Corina, TIBC, % sat. (without ferritin)2021-09-02 06:44:00 Test Item Value Reference Range Interpretation Comments Iron (test code = 2498-4) 28.0 ug/dL 40.0-160.0 L TIBC (test code = 2500-7) 243 ug/dL 250-450 L Iron % Saturation (test 12 % 20-55 L code = 2502-3) REJI (test code = REJI) Consulting Psychiatrist ID - SHAQUILLE M Lab Interpretation (test Abnormal code = 91344-9) [facility] CampusIron, TIBC, % sat. (without ferritin)2021-09-02 06:44:00 Test Item Value Reference Range Interpretation Comments Iron (test code = 2498-4) 28.0 ug/dL 40.0-160.0 L TIBC (test code = 2500-7) 243 ug/dL 250-450 L Iron % Saturation (test 12 % 20-55 L code = 2502-3) REJI (test code = REJI) Consulting Psychiatrist ID - SHAQUILLE M Lab Interpretation (test Abnormal code = 43762-6) [facility] CampusIRON, TIBC, % SAT. (WITHOUT FERRITIN)2021-09-02 06:44:00 Test Item Value Reference Range Interpretation Comments IRON (BEAKER) (test code = 547) 28.0 ug/dL 40.0-160.0 L TOTAL IRON BINDING CAPACITY 243 ug/dL 250-450 L (BEAKER) (test code = 769) IRON % SATURATION (2) (BEAKER) 12 % 20-55 L (test code = 2590) Consulting Psychiatrist ID - SHAQUILLE MCT, BRAIN, WITHOUT [id number] 03:54:00Unlisted Reason for Exam - Click Yes and Enter Reason Below->No [facility] 1960 Sex: FFINAL [...] recommended for further characterization. Signed: Mercy Mccallum [facility] Verified Date/Time: 09/02/2021 03:54:37 U/S, ABDOMINAL, [id number] 03:38:00 Abdomen limited area? Add comment if clarification is needed.->Right upper quadrantReason for exam:->evaluate biliary tree/liver [facility] 1960 Sex: FFINAL [...] poor acoustic windowing. Body and tail: Not well-seen. Ascites: None. Regional Vasculature: The visible [...] 09/02/2021 03:38:29 Urinalysis w/Microscopic + Reflex to [id number] 02:29:12 Test Item Value Reference Range Interpretation Comments Color, UA (test code Brown = 5778-6) Clarity, UA (test Hazy code = 5767-9) Specific [place], UA 1.029 1.001-1.035 (test code = 5811-5) pH, UA (test code = 6.0 5.0-8.0 5803-2) Protein, UA (test 30 mg/dL Negative A code = 02952-5) Glucose, UA (test Negative Negative code = 365) Ketones, UA (test Negative Negative code = 2514-8) Bilirubin, UA (test Negative Negative code = 07094-8) Blood, UA (test code Small Negative A = 96450-0) Nitrite, UA (test Negative Negative code = 5802-4) Leukocytes, UA (test Moderate Negative A code = 5799-2) Urobilinogen, UA 0.2 mg/dL 0.2-1.0 (test code = 63561-2) RBC, UA (test code = 18 See_Comment [Autom ated 76435-9) message] The system which generated this result [...] . Bacteria, UA (test Rare code = 57002-9) Mucus (test code = Moderate 8247-9) Squam Epithel, UA 2 See_Comment [Automate d (test code = 34287-6) messag e] The system which generated this result transmit barron reference range : /HPF. The reference range was not used to interpret this result as normal/abnormal . Hyaline Casts, UA 3 See_Comment [Automate d (test code = 10028-8) messag e] The system which generated this result transmit barron reference range : /LPF. The reference range was not used to interpret this result as normal/abnormal . Crystals, Urine (test None Seen code = 67092-3) Amorphous Crystals Rare (test code = 14960-4) Specimen Source (test code = 2795) REJI (test code = REJI) Consulting Psychiatrist ID - [auto]Consulting Psychiatrist ID - tech Lab Interpretation Abnormal (test code = 62050-6) [facility] CampusUrinalysis w/Microscopic + Reflex to Culture 2021-09-02 02:29:12 Test Item Value Reference Range Interpretation Comments Color, UA (test code Brown = 5778-6) Clarity, UA (test Hazy code = 5767-9) Specific [place], UA 1.029 1.001-1.035 (test code = 5811-5) pH, UA (test code = 6.0 5.0-8.0 5803-2) Protein, UA (test 30 mg/dL Negative A code = 89242-4) Glucose, UA (test Negative Negative code = 365) Ketones, UA (test Negative Negative code = 2514-8) Bilirubin, UA (test Negative Negative code = 88508-2) Blood, UA (test code Small Negative A = 94998-7) Nitrite, UA (test Negative Negative code = 5802-4) Leukocytes, UA (test Moderate Negative A code = 5799-2) Urobilinogen, UA 0.2 mg/dL 0.2-1.0 (test code = 68639-6) RBC, UA (test code = 18 See_Comment [Autom ated 88712-8) message] The system which generated this result [...] . Bacteria, UA (test Rare code = 64622-6) Mucus (test code = Moderate 8247-9) Squam Epithel, UA 2 See_Comment [Automate d (test code = 61807-9) messag e] The system which generated this result transmit barron reference range : /HPF. The reference range was not used to interpret this result as normal/abnormal . Hyaline Casts, UA 3 See_Comment [Automate d (test code = 30652-6) messag e] The system which generated this result transmit barron reference range : /LPF. The reference range was not used to interpret this result as normal/abnormal . Crystals, Urine (test None Seen code = 08344-3) Amorphous Crystals Rare (test code = 80575-9) Specimen Source (test code = 2795) REJI (test code = REJI) Consulting Psychiatrist ID - [auto]Consulting Psychiatrist ID - tech Lab Interpretation Abnormal (test code = 00404-1) [facility]UR[facility]IS W/ REFLEX URINE [id number] 02:29:12 Test Item Value Reference Range Interpretation [...] = 1584) SOURCE(BEAKER) (test code = 2795) Consulting Psychiatrist ID - [auto]Consulting Psychiatrist ID - techRAD, CHEST, 1 VIEW, NON [id number] 01:45:00Reason for exam:->leukocytosis, unable to provide historyShould this be performed at the bedside?->Yes [facility] 1960 Sex: FFINAL [...] 09/02/2021 01:45:23 CBC W/PLT COUNT & AUTO [id number] 00:20:23 Test Item Value Reference Range Interpretation [...] CONCENTRATION Decreased (CELLAVISION)(BEAKER) (test code = 3438) Consulting Psychiatrist ID - Curtis Grullon comments: Slide comments:PT/[id number] 23:44:49 Test Item Value Reference Interpretation Comments Range Protime (test code = 22.8 See_Comment H [Autom ated 5902-2) message] The system which generated this result transmitted reference range : 11.9 - 14.2 seconds. The reference range was not used to interpret this result as normal/abnormal . INR (test code = 2.04 See_Comment [Automated 6301-6) message] The system which generated this result transmitted reference range : <=5.90. The reference range was not used to interpret this result as normal/abnormal . PTT (test code = 35.2 See_Comment [Automated 03356-7) message] The system which generated this result [...] valves. Lab Interpretation Abnormal (test code = 10181-0) [facility] CampusPT/[id number] 23:44:49 Test Item Value Reference Interpretation Comments Range Protime (test code = 22.8 See_Comment H [Autom ated 5902-2) message] The system which generated this result transmitted reference range : 11.9 - 14.2 seconds. The reference range was not used to interpret this result as normal/abnormal . INR (test code = 2.04 See_Comment [Automated 4371-6) message] The system which generated this result transmitted reference range : <=5.90. The reference range was not used to interpret this result as normal/abnormal . PTT (test code = 35.2 See_Comment [Automated 27262-5) message] The system which generated this result [...] valves. Lab Interpretation Abnormal (test code = 33521-4) [facility] CampusPT/[id number] 23:44:49 Test Item Value Reference Range Interpretation [...] for patients with mechanical heart valves.BASIC METABOLIC [id number] 23:31:12 Test Item Value Reference Range Interpretation [...] S NOT APPLICABLE FOR DIALYSIS PATIEN TS. Consulting Psychiatrist ID - DBSpecimen slightly zpbmzjuVIAMBUSVG3337-07-88 23:19:46 Test Item Value Reference Range Interpretation Comments MAGNESIUM (BEAKER) (test code = 1.8 mg/dL 1.6-2.6 627) Consulting Psychiatrist ID - SDBJZUOAZDMQ4435-61-75 23:19:46 Test Item Value Reference Range Interpretation Comments PHOSPHORUS (BEAKER) (test code = 1.9 mg/dL 2.3-4.7 L 604) Consulting Psychiatrist ID - DBHEPATIC FUNCTION [id number] 23:19:46 Test Item Value Reference Range Interpretation [...] (test code = 14 U/L 6-55 347) Consulting Psychiatrist ID - DBSpecimen slightly ictericLactic acid, [id number] 23:13:03 Test Item Value Reference Range Interpretation Comments Lactate, Venous (test 2.88 mmol/L 0.50-2.20 H code = 2872) REJI (test code = REJI) Consulting Psychiatrist ID - DBSpecimen slightly icteric Lab Interpretation (test Abnormal code = 79241-3) [facility] CampusLactic acid, [id number] 23:13:03 Test Item Value Reference Range Interpretation Comments Lactate, Venous (test 2.88 mmol/L 0.50-2.20 H code = 2872) REJI (test code = REJI) Consulting Psychiatrist ID - DBSpecimen slightly icteric Lab Interpretation (test Abnormal code = 62442-0) [facility] CampusLACTIC ACID, [id number] 23:13:03 Test Item Value Reference Range Interpretation Comments LACTATE BLOOD VENOUS (2) (BEAKER) 2.88 mmol/L 0.50-2.20 H (test code = 2872) Consulting Psychiatrist ID - DBSpecimen slightly ictericPOC-Glucose xnhqt0314-08-36 22:47:30 Test Item Value Reference Range Interpretation Comments POC-Glucose Meter (test 106 mg/dL 70-110 : TE STED AT [facility] code = 1538) [address] [facility], [address] 30: Consulting Psychiatrist/Techni sowmya ID = [id number] for ULLATTIL, TAYA K Lab Interpretation (test Normal code = 08775-4) [facility] CampusPOC-Glucose [id number] 22:47:30 Test Item Value Reference Range Interpretation Comments POC-Glucose Meter (test 106 mg/dL 70-110 : TE STED AT [facility] code = 1538) [address] [place], 770 30: Consulting Psychiatrist/Techni sowmya ID = [id number] for TAYA TO Lab Interpretation (test Normal code = 75628-5) [facility] CampusPOCT-GLUCOSE [id number] 22:47:30 Test Item Value Reference Range Interpretation Comments POC-GLUCOSE METER 106 mg/dL 70-110 : TESTED A T [facility] [address] (BEAKER) (test code = SHAUN Villed[place] [facility], 1538) [address]: Consulting Psychiatrist/Techni sowmya ID = [id number] for WALE FITZPATRICK C1Q class 1 & 2 [id number] 17:38:21 Test Item Value Reference Range Interpretation Comments Interpretation (test code ADDITIONAL ANTIBODY = 1371515) INFORMATION:DQ7 = DQB1*03:01; DQA1*05:03DQ7 = DQB1*03:19; DQA1*05:05DQ7 = DQB1*03:01; DQA1*06:01DQ9 = DQB1*03:03; DQA1*02:01DQ9 = DQB1*03:03; DQA1*03:02DQ8 = DQB1*03:02; DQA1*03:01DQ8 = DQB1*03:02; DQA1*03:02 Case number (test code = [id number]) C1Q class 1 & 2 antibody See link below for (test code = 6316751) PDF Lab Report [facility], [facility], lung volumes, [facility]/[id number] 19:27:26 Test Item Value Reference Range Interpretation [...] Predicted (test code = 67.9 % 5368) [facility] [id number] 13:53:30 Test Item Value Reference Range Interpretation Comments POC glucose (test code = 124 mg/dL 65-99 H Ope rator Name: [id number]) Clint Bustamante RDevice ID: [id number] able : [facility] Notified histologic technician Interpretation (test Abnormal code = 92149-3) [facility] antigen [id number] 11:33:46 Test Item Value Reference Range Interpretation Comments SAB interpretation (test Additional Antibody code = 5950) Information:DQ2=DQB1 *02:01/DQA1*04:01, DQB1*02:01/DQA1*05:0 5PO8=KUS6*04:02/DQA1 *04:97UT4=PFM0*03:01 /DPA1*01:03, DPB1*03:01/DPA1*02:0 7LJ4=BQB2*04:02/DPA1 *01:18DM89=JJX6*28:0 1/DPA1*01:03 SAB serum ID (test code = [id number] 5866) [facility] serum collection D&T 08/23/2021 05:49 AM (test code = 5867) SAB class I antibody A11,A74,A32,A3,A31,A assignment (test code = 30,A36,A1,A29,A66,A8 5870) 0,A26,A25,A43,A34,A3 3,B82 SAB cPRA class I (test code = 5868) SAB class II antibody DR18,DR17,DR13,DR14, assignment (test code = DR52,DR11,DR8,DQ7,DR 5871) 12,DQ9,DR9,DR7,DQ8,D Q2,DR4,DQ4,DP2,DP14, DP4,DP9,DP10,DP18,DP 20,DP17,DP3,DP28 SAB cPRA class II (test code = 5869) Case number (test code = [id number]) Single antigen beads See link below for (test code = 4604) [facility] [id number] 20:20:55 Test Item Value Reference Range Interpretation Comments Collection start date, urine (test 08/23/21 code = 85889-6) Collection start time, urine (test 8:40 code = 20167-4) Collection stop date, urine (test 08/24/21 code = 47950-1) Collection stop time, urine (test 8:40 code = 23676-2) Hours of collection (test code = 76926-9) Total volume, urine (test code = 800 mL 79109-5) Urine protein concentration (test 7 mg/dL code = 68308-4) Urine protein excretion (test code = mg/vol 2448) [facility], [id number] 20:20:52 Test Item Value Reference Range Interpretation Comments Collection start date, urine (test 08/23/21 code = 66230-8) Collection start time, urine (test 8:40 code = 27874-0) Collection stop date, urine (test 08/24/21 code = 77139-1) Collection stop time, urine (test 8:40 code = 07700-5) Hours of collection (test code = 33220-9) Total volume, urine (test code = 800 mL 05613-7) Urine creatinine concentration 114 mg/dL (test code = 74564-8) Urine creatinine excretion (test mg/vol code = 62233-3) [facility]) RNA [Presence] in Respiratory specimen by GUSTAVO with probe [id number] 20:48:05 Test Item Value Reference Range Interpretation Comments SARS-CoV-2 (COVID-19) RNA Not detected Not-Detected [Presence] in Respiratory specimen by GUSTAVO with probe detection (test code = 48934-4) 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 (test code = 48809-3) Whether the patient has symptoms related to condition of interest (test code = 35316-9) Patient was hospitalized because of this condition (test code = 27615-0) Whether the patient was admitted to intensive care unit (ICU) for condition of interest (test code = 31561-1) Whether patient resides in a congregate care setting (test code = 36803-9) [facility] [id number] 15:33:38 Test Item Value Reference Range Interpretation Comments Ventricular rate (test code = 253) Atrial rate (test code = 255) MT interval (test code = 266) QRSD interval [...] out Inferior infarct , age undetermined-Abnormal ECG- [facility] transplant [id number] 14:27:40 Test Item Value Reference Range Interpretation Comments HLA transplant evaluation See link below for (test code = 83737-6) PDF Lab Report Case number (test code = [id number]) [facility] ED Preliminary Interpretation - Not an [id number] 02:54:33 Test Item Value Reference Range Interpretation Comments REJI (test code = REJI) Orlando Balderrama MD 08/17/2021 10:33 [facility] Preliminary Interpretation - Not an OrderPerformed by: Orlando Balderrama MDAuthorized by: Orlando Balderrama MD ECG reviewed by ED Physician in the absence of a radio host: yes Interpretation: Interpretation: abnormal Rate: ECG rate: 80 ECG rate assessment: normal Rhythm: Rhythm: sinus rhythm QRS: QRS axis: Normal QRS intervals: NormalST segments: ST segments: NormalOther findings: Other findings: prolonged qTc interval Lab Interpretation Abnormal (test code = 98361-3) [employer] TvbvlludNIRX-SvF-3 (COVID-19) RNA [Presence] in Respiratory specimen by GUSTAVO with probe [id number] 23:59:30 Test Item Value Reference Range Interpretation Comments SARS-CoV-2 (COVID-19) RNA Not detected Not-Detected [Presence] in Respiratory specimen by GUSTAVO with probe detection (test code = 69448-5) 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 (test code = 68697-7) Whether the patient has symptoms related to condition of interest (test code = 99454-4) Patient was hospitalized because of this condition (test code = 95256-4) Whether the patient was admitted to intensive care unit (ICU) for condition of interest (test code = 87864-2) Whether patient resides in a congregate care setting (test code = 94095-2) status (test code = 57705-6) PHI MICHAELSARS-CoV-2 (COVID-19) RNA [Presence] in Respiratory specimen by GUSTAVO with probe [id number] 14:46:31 Test Item Value Reference Range Interpretation Comments SARS-CoV-2 (COVID-19) RNA Not detected Not-Detected [Presence] in Respiratory specimen by GUSTAVO with probe detection (test code = 35898-1) 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 (test code = 11802-6) Whether the patient has symptoms related to condition of interest (test code = 19447-0) Patient was hospitalized because of this condition (test code = 67935-2) Whether the patient was admitted to intensive care unit (ICU) for condition of interest (test code = 40634-7) Whether patient resides in a congregate care setting (test code = 12306-0) status (test code = 34352-8) PHI MICHAELSARS-CoV-2 (COVID-19) RNA [Presence] in Respiratory specimen by GUSTAVO with probe [id number] 19:52:10 Test Item Value Reference Range Interpretation Comments SARS-CoV-2 (COVID-19) RNA Not detected Not-Detected [Presence] in Respiratory specimen by GUSTAVO with probe detection (test code = 23068-1) 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 (test code = 74540-2) Whether the patient has symptoms related to condition of interest (test code = 29259-5) Patient was hospitalized because of this condition (test code = 05361-9) Whether the patient was admitted to intensive care unit (ICU) for condition of interest (test code = 71533-2) Whether patient resides in a congregate care setting (test code = 38509-5) status (test code = 63286-8) PHI MICHAELSARS-CoV-2 (COVID-19) RNA [Presence] in Respiratory specimen by GUSTAVO with probe [id number] 19:31:11 Test Item Value Reference Range Interpretation Comments SARS-CoV-2 (COVID-19) RNA Not detected Not-Detected [Presence] in Respiratory specimen by GUSTAVO with probe detection (test code = 36002-0) 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 (test code = 21358-3) Whether the patient has symptoms related to condition of interest (test code = 91564-6) Patient was hospitalized because of this condition (test code = 85392-0) Whether the patient was admitted to intensive care unit (ICU) for condition of interest (test code = 79781-4) Whether patient resides in a congregate care setting (test code = 20075-1) status (test code = 88033-3) PHI MICHAELSARS-CoV-2 (COVID-19) RNA [Presence] in Respiratory specimen by GUSTAVO with probe [id number] 02:26:38 Test Item Value Reference Range Interpretation Comments SARS-CoV-2 (COVID-19) RNA Not detected Not-Detected [Presence] in Respiratory specimen by GUSTAVO with probe detection (test code = 73202-3) PHI MICHAELSARS-CoV-2 (COVID-19) RNA [Presence] in Respiratory specimen by GUSTAVO with probe [id number] 21:10:32 Test Item Value Reference Range Interpretation Comments SARS-CoV-2 (COVID-19) RNA Not detected Not-Detected [Presence] in Respiratory specimen by GUSTAVO with probe detection (test code = 26013-4) PHI MICHAELSARS-CoV-2 (COVID-19) RNA [Presence] in Respiratory specimen by GUSTAVO with probe [id number] 19:03:37 Test Item Value Reference Range Interpretation Comments SARS-CoV-2 (COVID-19) RNA Not detected Not-Detected [Presence] in Respiratory specimen by GUSTAVO with probe detection (test code = 00823-7) PHI CORLEY GTGWYVCP-QaO-7 (COVID-19) RNA [Presence] in Respiratory specimen by GUSTAVO with probe [id number] 05:36:17 Test Item Value Reference Range Interpretation Comments SARS-CoV-2 (COVID-19) RNA Not detected Not-Detected [Presence] in Respiratory specimen by GUSTAVO with probe detection (test code = 58803-3) PHI MICHAELSARS-CoV-2 (COVID-19) IgG+IgM Ab [Presence] in Serum or Plasma by [id number] 09:52:00 Test Item Value Reference Range Interpretation Comments SARS-CoV-2 (COVID-19) IgG+IgM Ab Not detected [Presence] in Serum or Plasma by Immunoassay (test code = 57563-8) PHI MICHAELSARS-CoV-2 (COVID-19) RNA [Presence] in Respiratory specimen by GUSTAVO with probe [id number] 04:46:40 Test Item Value Reference Range Interpretation Comments SARS-CoV-2 (COVID-19) RNA [Presence] Detected Not-Detected in Respiratory specimen by GUSTAVO with probe detection (test code = 72577-7) PHI MICHAELSARS-CoV-2 (COVID-19) RNA [Presence] in Respiratory specimen by GUSTAVO with probe [id number] 00:55:48 Test Item Value Reference Range Interpretation Comments SARS-CoV-2 (COVID-19) RNA Not detected Not-Detected [Presence] in Respiratory specimen by GUSTAVO with probe detection (test code = 74025-0) PHI BAPTISM OACPNEWJ-ZrA-8 (COVID-19) RNA [Presence] in Respiratory specimen by GUSTAVO with probe [id number] 08:17:26 Test Item Value Reference Range Interpretation Comments SARS-CoV-2 (COVID-19) RNA Not detected Not-Detected [Presence] in Respiratory specimen by GUSTAVO with probe detection (test code = 24047-6) PHI MICHAELSARS-CoV-2 (COVID-19) RNA [Presence] in Respiratory specimen by GUSTAVO with probe [id number] 00:04:18 Test Item Value Reference Range Interpretation Comments SARS-CoV-2 (COVID-19) RNA Not detected Not-Detected [Presence] in Respiratory specimen by GUSTAVO with probe detection (test code = 60898-9) PHI MICHAELSARS-CoV-2 (COVID-19) RNA [Presence] in Respiratory specimen by GUSTAVO with probe [id number] 04:41:17 Test Item Value Reference Range Interpretation Comments SARS-CoV-2 (COVID-19) RNA Not detected Not-Detected [Presence] in Respiratory specimen by GUSTAVO with probe detection (test code = 29473-8) PHI MICHAELSARS-CoV-2 (COVID-19) RNA [Presence] in Respiratory specimen by GUSTAVO with probe [id number] 04:13:39 Test Item Value Reference Range Interpretation Comments SARS-CoV-2 (COVID-19) RNA Not detected Not-Detected [Presence] in Respiratory specimen by GUSTAVO with probe detection (test code = 14919-1) PHI MICHAEL
[2022-06-28] MEDS ORDERED: NA CHLORIDE 0.9% 1,000 ML ONE (02:47)
[2022-06-28 05:40] LABS: Albumin 2.6 g/dL (3.4-5.0); Bilirubin Total 1.1 mg/dL (0.2-1.0); Magnesium 1.5 mg/dL (1.8-2.4); Potassium 3.5 mmol/L (3.5-5.1); Protein, Total 6.9 g/dL (6.4-8.2)
[2022-06-28 05:44] LABS: Absolute Lymphocytes (CBC) 1.3 K/uL (0.7-4.9); Hematocrit 31.5 % (36.0-45.0); Lymphocytes % 20.5 % (15.3-44.8); MCV 93.7 fL (80-100); MPV 8.8 fL (7.6-11.3); RBC Red Blood Cell Count 3.37 M/uL (3.86-4.86)
--- NOTE | 2022-06-28 06:24 | ER ---
[facility]'s [facility] Name: Bella Bar[facility] Age: 62 yrs Sex: Female : 1960 Arrival Date: 06/28/2022 Time: 02:37 Bed [facility] MD: Diagnosis: Left sided colitis Presentation: 06/28 02:37 Chief complaint: EMS states: pt c/o diarrhea, pt released from hospital earlier today aa9 after a 90 day admission period for high ammonia levels, pt was in a coma state for half of that time, she was dx with c diff as well. Ebola Screen: No symptoms or risks identified at this time. Initial Sepsis Screen: Does the patient meet any 2 criteria? Yes Does the patient have a suspected source of infection? No. Patient's initial sepsis screen is negative. Risk Assessment: Do you want to hurt yourself or someone else? Patient reports no desire to harm self or others. Onset of symptoms was June 28, 2022. 02:37 Method Of Arrival: EMS: [facility] aa9 02:37 Acuity: OLEG 3 aa9 06:58 Coronavirus screen: Vaccine status: Patient reports receiving the 2nd dose of the covid aa9 vaccine. Triage Assessment: 02:39 General: Appears uncomfortable, unkempt, Behavior is cooperative, appropriate for age, aa9 anxious, Smells of feces. Historical: - Allergies: 04:09 ceftriaxone; aa9 04:09 Ciprofloxacin; aa9 04:09 Iodine; aa9 04:09 LACTASE; aa9 04:09 Promethazine; aa9 04:09 EGG/POULTRY; aa9 - PMHx: 04:09 cirrhosis of liver; Crohn's Disease; kidney disease; hypotension; aa9 - Immunization history:: Client reports receiving the 2nd dose of the Covid vaccine. - Social history:: Smoking status: Patient denies any tobacco usage or history of. Screenin:14 Abuse screen: Denies threats or abuse. Denies injuries from another. Nutritional aa9 screening: No deficits noted. Tuberculosis screening: No symptoms or risk factors identified. Fall Risk None identified. Assessment: 04:11 Pain: Complains of pain in abdomen. Neuro: Level of Consciousness is awake, alert, aa9 obeys commands, Oriented to person, situation. Cardiovascular: Patient's skin is warm and dry. Respiratory: Airway is patent Respiratory effort is even, unlabored. GI: Stools are reported to be loose, diarrhea. Reports diarrhea. : No signs and/or symptoms were reported regarding the genitourinary system. EENT: No signs and/or symptoms were reported regarding the EENT system. Derm: Skin is intact, with poor turgor Skin is pale, Skin temperature is cool. 05:44 General: Appears uncomfortable, ill, Behavior is cooperative, crying. Neuro: Level of aa9 Consciousness is awake, alert, obeys commands, Oriented to person, situation. Respiratory: Airway is patent Respiratory effort is even, unlabored. Vital Signs: 04:11 BP 127 / 58; Pulse 80; Resp 18 S; Temp 98.2(O); Pulse Ox 99% on R/A; Weight 88.45 kg aa9 (R); Height 4 ft. 11 in. (149.86 cm) (R); Pain 5/10; 04:11 Body Mass Index 39.38 (88.45 kg, 149.86 cm) aa9 ED Course: 02:37 Patient arrived in ED. aa9 02:37 Bebo Cummings MD is Attending Physician. rt 02:39 Triage completed. aa9 02:39 Arm band placed on. aa9 02:46 Tiffani Miller, AMARILIS is Primary Nurse. aa9 03:38 Abdomen In Process Unspecified. EDMS 04:08 Missed attempt(s): 22 gauge in left forearm. Bleeding controlled, band aid applied, aa9 catheter tip intact. Missed attempt(s): 20 gauge in right antecubital area. Bleeding controlled, band aid applied, catheter tip intact. 04:14 Patient has correct armband on for positive identification. Bed in low position. Call aa9 light in reach. Side rails up X2. Cleaned of incontinence. Linen changed. 05:05 Inserted saline lock: 22 gauge in right antecubital area, using aseptic technique. aa9 Blood collected. 05:05 Magnesium Sent. aa9 05:05 Blood Culture Adult (2) Sent. aa9 05:05 Lactate w/ 2H reflex if indic. Sent. aa9 05:05 CBC with Diff Sent. aa9 05:05 CMP Sent. aa9 05:05 Lipase Sent. aa9 06:58 No provider procedures requiring assistance completed. IV discontinued, intact, aa9 bleeding controlled, No redness/swelling at site. Pressure dressing applied. Administered Medications: 05:05 Drug: NS 0.9% 1000 ml Route: IV; Rate: 1 bolus; Site: right antecubital; aa9 Medication: 05:07 VIS not applicable for this client. aa9 Outcome: 06:23 Discharge ordered by . rt 06:58 Discharged to home via wheelchair. aa9 06:58 Condition: stable 06:58 Discharge instructions given to patient, Instructed on discharge instructions, follow up and referral plans. medication usage, Demonstrated understanding of instructions, follow-up care, medications, Prescriptions given X 1. 06:58 Patient left the ED. aa9 Signatures: Dispatcher [employer] EDTiffani Harry RN RN aa9 Bebo Cummings MD MD rt Corrections: (The following items were deleted from the chart) 04:11 04:09 PMHx: neuropthy; aa9 aa9
--- NOTE | 2022-06-28 06:24 | EDPHYS ---
Physician Documentation [facility] Name: Bella Barron Age: 62 yrs Sex: Female : 1960 Arrival Date: 06/28/2022 Time: 02:37 Bed 17 Private MD: ED Physician Bebo Cummings HPI: 06/28 03:06 This 62 yrs old Female presents to ER via EMS with complaints of Altered Mental status. rt 03:06 Onset: The symptoms/episode began/occurred 1 day(s) ago. Associated signs and symptoms: rt Pertinent positives: abdominal pain, diarrhea. Unable to obtain HPI due to altered mental status. Patient was recently mated to [facility] as well as rehab hospital for colitis with subsequent reported coma for about 90 days. She was just discharged from the hospital. The patient developed diarrhea as well as a worsening mental status. She reports abdominal pain. Is unable to provide further history. Symptoms are moderate in severity, no other aggravating or alleviating factors.. Historical: - Allergies: 04:09 ceftriaxone; aa9 04:09 Ciprofloxacin; aa9 04:09 Iodine; aa9 04:09 LACTASE; aa9 04:09 Promethazine; aa9 04:09 EGG/POULTRY; aa9 - PMHx: 04:09 cirrhosis of liver; Crohn's Disease; kidney disease; hypotension; aa9 - Immunization history:: Client reports receiving the 2nd dose of the Covid vaccine. - Social history:: Smoking status: Patient denies any tobacco usage or history of. ROS: 03:06 Unable to obtain ROS due to altered mental status. rt 06:59 Eyes: Negative for injury, pain, redness, and discharge. rt Exam: 03:06 Constitutional: This is a well developed, well nourished patient who is awake, alert, rt and in no acute distress. Head/Face: Normocephalic, atraumatic. Eyes: Pupils equal round and reactive to light, extra-ocular motions intact. Lids and lashes normal. Conjunctiva and sclera are non-icteric and not injected. Cornea within normal limits. Periorbital areas with no swelling, redness, or edema. Chest/axilla: Normal chest wall appearance and motion. Nontender with no deformity. No lesions are appreciated. Cardiovascular: Regular rate and rhythm with a normal S1 and S2. No gallops, murmurs, or rubs. Normal PMI, no JVD. No pulse deficits. Respiratory: Lungs have equal breath sounds bilaterally, clear to auscultation and percussion. No rales, rhonchi or wheezes noted. No increased work of breathing, no retractions or nasal flaring. Back: No spinal tenderness. No costovertebral tenderness. Full range of motion. Skin: Warm, dry with normal turgor. Normal color with no rashes, no lesions, and no evidence of cellulitis. MS/ Extremity: Pulses equal, no cyanosis. Neurovascular intact. Full, normal range of motion. 03:06 Abdomen/GI: Mild tenderness diffusely without rebound, guarding, distention. 03:06 Neuro: Alert, slowed speech, moves all 4 extremities equally. Vital Signs: 04:11 BP 127 / 58; Pulse 80; Resp 18 S; Temp 98.2(O); Pulse Ox 99% on R/A; Weight 88.45 kg aa9 (R); Height 4 ft. 11 in. (149.86 cm) (R); Pain 5/10; 04:11 Body Mass Index 39.38 (88.45 kg, 149.86 cm) aa9 MDM: 02:39 Patient medically screened. rt 06:24 Differential Diagnosis: electrolyte abnormality, c diff, colitis, bowel obstruction, rt dehydration. Data reviewed: vital signs, nurses notes, old medical records, EKG, radiologic studies. 06:24 ED course: Patient presents to the ED with worsening of diarrhea, reported altered rt mental status. The patient had a recent admission for C. difficile colitis as well as was in a coma apparently. The patient had significant improvement, back to baseline. She is found to have a mild colitis on CT scan. Given recent acuity of the illness, I did discuss and recommend admission to the patient. The patient does not wish to be admitted to the hospital, she is strongly desirous of discharge and has decision-making capacity. We will start patient on Flagyl. Patient was given strict return precautions.. 06/28 02:39 Order name: CBC with Diff rt 06/28 02:39 Order name: CMP; Complete Time: 06:09 rt 06/28 02:39 Order name: Lipase; Complete Time: 06:09 rt 06/28 02:39 Order name: Lactate w/ 2H reflex if indic.; Complete Time: 06:09 rt 06/28 02:39 Order name: Blood Culture Adult (2) rt 06/28 02:39 Order name: IV Saline Lock; Complete Time: 05:05 rt 06/28 02:39 Order name: Labs collected and sent; Complete Time: 05:05 rt 06/28 02:39 Order name: Magnesium; Complete Time: 06:09 rt 06/28 03:05 Order name: Abdomen EDMS Administered Medications: 05:05 Drug: NS 0.9% 1000 ml Route: IV; Rate: 1 bolus; Site: right antecubital; aa9 Disposition Summary: 06/28/22 06:23 Discharge Ordered Location: Home rt Problem: an ongoing problem rt Symptoms: have improved rt Condition: Stable rt Diagnosis - Left sided colitis rt Followup: rt - With: Private Physician - When: 2 - 3 days - Reason: Discharge Instructions: - Discharge Summary Sheet rt - Colitis rt Forms: - Medication Reconciliation Form rt - Thank You Letter rt - Antibiotic Education rt - Prescription Opioid Use rt Prescriptions: - Flagyl 500 mg Oral Tablet - take 1 tablet by ORAL route every 12 hours for 7 days; 14 tablet; Refills: 0, rt Product Selection Permitted Signatures: Dispatcher [employer] EDTiffani Harry RN RN aa9 Bebo Cummings MD MD rt Corrections: (The following items were deleted from the chart) 03:05 02:43 Abdomen Pelvis W Con+CT.RAD.BRZ ordered. EDMS EDMS 04:11 04:09 PMHx: neuropthy; aa9 aa9
[2022-06-28 07:10] VITALS: BP 127/58; TEMP 98.2; O2SAT 99
[2022-06-28 08:58] LABS: Anisocytosis 1+; Blood Morphology Comment NOTED (NOT SEEN); Platelet Estimate DECR; Polychromasia SLIGHT; White Blood Cell Scan OK (OK)
--- NOTE | 2022-06-28 11:25 | RAD REPORT ---
EXAM DESCRIPTION: CT Abdomen and Pelvis Without Intravenous Contrast CLINICAL HISTORY: The patient is 62 years old and is Female; pain TECHNIQUE: Axial computed tomography images of the abdomen and pelvis without intravenous contrast. Sagittal and coronal reformatted images were created and reviewed. This CT exam was performed usi ng one or more of the following dose reduction techniques: automated exposure control, adjustment o f the mA and/or kV according to patient size, and/or use of iterative reconstruction technique. COMPARISON: Multiple prior studies including March 25, 2022 back to September 01, 2021. FINDINGS: Lung bases: Unremarkable. No mass. No consolidation. Pleural space: Small bilateral pleural effusions, right greater than left. ABDOMEN: Liver: Unremarkable. Gallbladder and bile ducts: Cholecystectomy without biliary dilatation. Pancreas: Unremarkable. No ductal dilation. Spleen: Splenomegaly. Adrenals: Unremarkable. No mass. Kidneys and ureters: Left renal simple cyst, 5.4 cm. A follow-up imaging recommended. Bilateral nephrolithiasis without hydronephrosis. Stomach and bowel: Air-fluid levels in the colon suggesting diarrheal symptoms. Wall thickening v ersus artifact of incomplete distention in the transverse colon and hepatic flexure suggesting mild c olitis. Previous ileocolic resection/anastomosis. PELVIS: Appendix: No findings to suggest acute appendicitis. Bladder: Unremarkable. No stones. Reproductive: Right ovarian cyst again noted, 4.5 cm. This is stable in size compared with March 25, 2022. Uterus is present. Left adnexa is unremarkable. ABDOMEN and PELVIS: Intraperitoneal space: Unremarkable. No free air. No significant fluid collection. Bones/joints: L2-3 degenerative disc disease. No acute fracture. No dislocation. Soft tissues: Previous ventral abdominal wall hernia repair. Mild subcutaneous edema, particularly posteriorly. Vasculature: Unremarkable. No abdominal aortic aneurysm. Lymph nodes: No pathologically enlarged lymph nodes. Tubes, lines and devices: TIPS shunt. IMPRESSION: 1. Air-fluid levels in the colon suggesting diarrheal symptoms. Wall thickening versus artifact of incomplete distention in the transverse colon and hepatic flexure suggesting mild coliti s. Clinical correlation suggested. 2. TIPS shunt. 3. Splenomegaly. 4. Bilateral nephrolithiasis. 5. Previous ileocolic resection/anastomosis. 6. Small bilateral pleural effusions. 7. Right ovarian cyst again noted, 4.5 cm. This is stable in size compared with March 25, 2022. No follow-up imaging recommended. Electronically signed by: Janina Oropeza MD 06/28/2022 4:21 AM CRIME LAB ANALYST Due to temporary technical issues with the PACS/Fluency reporting system, reports are being signed by the in house radiologists without review as a courtesy to insure prompt reporting. The interpreting radiologist is fully responsible for the content of the report.
== END 2022-06-28 06:58 | disposition home or self-care (01) ==
LOC: ER 02:30
DX: K52.9 Noninfective gastroenteritis and colitis, unspecified (principal); I95.9 Hypotension, unspecified; K50.90 Crohn's disease, unspecified, without complications; K74.60 Unspecified cirrhosis of liver; Z88.1 Allergy status to other antibiotic agents; Z91.09 Other allergy status, other than to drugs and biological substances; Z91.012 Allergy to eggs; Z91.018 Allergy to other foods; Z88.8 Allergy status to other drugs, medicaments and biological substances
CPT/HCPCS: 87040; 85025; 36415; 83735; 83605; 83690; 80053; 74176; 99284; J7030

== ENCOUNTER 2022-07-02 18:35 | Emergency (ER) | payer OTHER ==
--- OUTSIDE RECORDS SUMMARY | 2022-07-02 18:52 | XMS REPORT | Continuity of Care Document ---
:1960 Author Organization [facility] t Address [address] [place] [address] [address]. [address] [place] [address] Care Team Providers Name Role Phone CALOS [...] SALLY AGUDELO Attending Clinician Unavailable Doctor Unassigned, [place] Attending Clinician Unavailable Victoriano Membreno Attending Clinician Unavailable Mercy Tamez MD Attending Clinician CAOLS GARCIA Attending Clinician Unavailable Libby Levy PA-C Attending Clinician LIBBY LEVY Attending Clinician Unavailable Michael FRANKLIN, Kendy Dalal Attending Clinician [phone] Dawna Anguiano MD Attending Clinician Isabella FRANKLIN, Zara Stevenson Attending Clinician [phone] Shiela Zabala MD Attending Clinician Selma Lu MD Attending Clinician Kyle FRANKLIN, Nia Delaney Attending Clinician KENDY HALL Attending Clinician Unavailable Jn Cleveland RN Attending Clinician Unavailable MOISES DORADO Attending Clinician Unavailable Sawyer Huitron MD Attending Clinician Kirit Jaimes LCSW Attending Clinician Unavailable Sergo Lee RN Attending Clinician Unavailable MD JENNIFER GHOSH Attending Clinician Unavailable MD MOISES DORADO Attending Clinician Unavail able Erika Brown MA Attending Clinician Unavailable DO ROMERO LIMON Attending Clinician Unavailable ROMERO LIMON Attending Clinician Unavailable John PhD, Kaleb Turner Attending Clinician Unavailable Eusebia Williamson MA Attending Clinician Unavailable MD BAYLEE GIRARD Attending Clinician Unavail able Bia Tee RN Attending Clinician Unavailable Wild Kovacs DO Attending Clinician [phone] Cliff Levy MD Attending Clinician MD CALOS GARCIA Attending Clinician Unavailable Freedom Gutierrez DO Attending Clinician Robby Perez MD Attending Clinician [phone] MD HERIBERTO YORK Attending Clinician Unavailable [...] JENNIFER GHOSH Admitting Clinician Unavailable MD CALOS GARCIA Admitting [...] Number Effective Date Expiration Date S pedro MEDICARE A B [id number] 2015 00:00:00 GENERIC MEDICAID [id number] 2021 [facility] 00:00:00 MEDICARE PART A [id number] 2015 \\T\\ B 00:00:00 MEDICAID [id number] 2018 [place] 00:00:00 [facility] [id number] [facility] MEDICARE NOVITAS [id number] 2015 Common 00:00:00 Spirit - [facility] [id number] [facility] [id number] 2015 Common 00:00:00 [facility] MEDICARE NOVITAS MB [id number] 2015 Common 00:00:00 [facility] [id number] Common [facility] MEDICARE NOVITAS MB [id number] 2015 Common 00:00:00 [facility] [id number] Common [facility] [id number] Common [facility] MEDICARE NOVITAS MB [id number] 2015 Common 00:00:00 [facility] [id number] Common [facility] MEDICARE NOVITAS MB [id number] 2015 Common 00:00:00 [facility] MEDICARE NOVITAS MB [id number] 2015 Common 00:00:00 [facility] [id number] Common [facility] MEDICARE NOVITAS MB [id number] 2015 Common 00:00:00 [facility] [id number] Common [facility] MEDICARE NOVITAS MB [id number] 2015 Common 00:00:00 [facility] [id number] Common [facility] [id number] 2016 HEALTHCARE 00:00:00 MEDICAID Problems Condition Condition Condition Status Onset Resolution Last Treating Co mments Source Name Details Category Date Date Treatment Clinician Date Altered Altered Disease Active [facility]02 [facility] status status [facility] Medical 00 Center [...] Added automatic ally from request for surgery [id number] Chronic Chronic Disease Active 2020-08 [facility] kidney kidney 0-15 st disease disease 00:00: Hospita 00 l SBP SBP Disease Active 2020-08 Methodi (spontaneo (spontaneo 013 st us 00:00: Hospita bacterial bacterial 00 [...] nivers ia ia 03-06 ity of 00:00: [place] 00 Medical Branch Abdominal Abdominal Disease Active Met hodi pain pain 11-12 st 00:00: Hospita 00 l Weakness Weakness Disease Active Metho di 08-20 00:00: Hospita 00 l Chest pain Chest pain Disease Active M ethodi on on 08-20 breathing breathing 00:00: Hosp apge 00 l Non-intrac Non-intrac Disease Active M [...] Acute Acute Disease Active Methodi hepatic hepatic [address] st encephalop encephalop 00:00: Ho spita athy athy 00 l Hematochez Hematochez Disease Active M ethodi ia ia 12-11 st 00:00: Hospita 00 l Melena Melena Disease Active Overview: Method i 12-[address] 00:00: g of this Hospita 00 note l might be different from the original. Added automatic ally from request for surgery [id number] Persistent Persistent Disease Active M ethodi depressive depressive 2 st disorder disorder 00:00: Hospit a 00 l 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 2-02 it y of athy athy 00:00: [place] 00 Medical Branch Hepatic Hepatic Disease Active 2015-08 Methodi encephalop encephalop 1-15 st athy athy 00:00: Hospita 00 l Thrombocyt Thrombocyt Disease Active M ethodi openia openia 05-04 00:00: Hospita 00 l Malnutriti Malnutriti Disease Active M ethodi on on 05-04 00:00: Hospita 00 l Right Right Disease Active Univers shoulder shoulder 4-25 ity of pain pain 00:00: [place] [id number] Medical Branch Anxiety Anxiety Disease Active Univers and and 4- [place] Rectal Rectal Disease Active 2014-08 Univers bleed bleed 2- ity of 00:00: [place] [address] 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 - [facility] steatohepa [facility] [id number] End stage Problem Active Com mon liver Spirit disease - [facility] [id number] Unspecifie Problem Active Co mmon d Spirit cirrhosis - CHI of liver [facility] Cirrhosis Non-alcoho Problem Active Co mmon - lic Spirit non-alcoho cirrhosis - C HI lic [facility] 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 Spir it of liver - [facility] without [facility] Fatigue Fatigue Problem Active Common [facility] Chronic Chronic Problem Active Common pain pain [facility] Anxiety Anxiety Problem Active Common [facility] Depression Depression Problem Active C ommon Spirit [facility] Kidney Kidney Problem Active Common stone stone [facility] Thrombocyt Thrombocyt Problem Active [facility] openia openia [facility] Bipolar Bipolar Problem Active Common disorder disorder [facility] Restless Restless Problem Active Commo n legs legs Spirit syndrome syndrome - [facility] [id number] Inflammato Problem Active Com mon ry bowel Spirit disease - [facility] [id number] Incontinen Problem Active Com mon ce of Spirit feces, - [facility] unspecifie [facility] fecal [facility] incontinen Medica l ce type Center Body mass BMI Problem Active Common index 40+ 40.0-44.9, Spi rit - morbidly adult - [facility] obese [facility] Allergic Seasonal Problem Active Commo n rhinitis and Spirit perennial - [facility] allergic rhinitis [facility] Irritable Irritable Problem Active Com mon bowel bowel Spirit syndrome syndrome - [facility] without St diarrhea [facility] [id number] Adult BMI Problem Active Com mon 35.0-35.9 Spirit kg/sq [facility] [id number] Insomnia, Problem Active Com mon unspecifie Spirit d type [facility] Migraine Migraine Problem Active Commo n [facility] Gout Gout Problem Active Common [facility] Allergies, Adverse Reactions, Alerts Allergy Allergy Status Severity Reaction(s) Onset Inactive Treating Comm ents Source Name Type Date Date Clinician Shellfis Drug Active [facility] Allergy 2 [facility] Containi 00:00: Medical ng 00 [employer] Products Fish Drug Active [facility] Containi Allergy 09-12 [facility] ng 00:00: Medical Products 00 [employer] FISH Allergy Active [facility] CONTAINI 09-12 [facility] NG 00:00: Medical PRODUCTS 00 [employer] SHELLFIS Allergy Active [facility] H 2 [facility] CONTAINI 00:00: Medical NG 00 [employer] PRODUCTS Eggshell Drug Active [facility] Membrane Allergy 09-07 [facility] 00:00: Medical 00 [employer] EGGSHELL Allergy Active [facility] MEMBRANE 09-07 [facility] 00:00: Medical 00 [employer] Prometha Propensi Active [facility] zine ty to 09-02 [facility] adverse 00:00: Medical reaction 00 [employer] [facility] Ceftriax Propensi Active [facility] one ty to 09-02 [facility] adverse 00:00: Medical reaction 00 [employer] Iodine Propensi Active [facility] ty to 09-02 [facility] adverse 00:00: Medical reaction 00 [employer] [facility] CEFTRIAX Allergy Active [facility] ONE 09-02 [facility] 00:00: Medical 00 [employer] IODINE Allergy Active [facility] -22 [facility] 00:00: Medical 00 [employer] PROMETHA Allergy Active [facility] ZINE -22 [facility] 00:00: Medical 00 [employer] Ciproflo Propensi Active Hives 2020-08 Method i [...] Active Other-Cmnt 2017-0 Univ ers ZINE INGREDI 3- ity of 00:00: [place] 00 Medical Branch [...] 00 Medical Branch Iodine Propensi Active Anaphylaxis 2016-0 SOB, Met hodi ty to 05-01 wheezing, st adverse 00:00: "my Hospita reaction 00 throat l s to closes drug up."*pt states cannot have topical nor IV Iodine Propensi Active Anaphylaxis Uni vers ty to 8- ity of adverse 00:00: [place] reaction 00 Medical s Branch IODINE DRUG Active Anaphylaxis Unive rs INGREDI 8 ity of 00:00: [place] 00 Medical Branch NO KNOWN Allergy Active [facility] 463 Drug Active Unknown Common allergy Spirit - [facility] prometha prometha Active Unknown Commo n isidoro chaudhry Spirit - [facility] Family History Family Member Diagnosis Comments Start Date Stop Date Source Natural father No Known Problems Met [facility] Natural mother No Known Problems Met [facility] Social History Social Habit Start Date Stop Date Quantity Comments Source History SDOH [facility] Alcohol Std Drinks Medica l Center History SDOH [facility] Alcohol Binge Medical [place] ter History SDOH [facility] Alcohol Comment Medical C enter Exposure to Not sure University of SARS-CoV-2 (event) [facility] History of Tobacco Common Spirit - Use [facility] Alcohol intake 2021-09-02 2021-09-[address] [facility] 00:00:00 00:00:00 non-drinker Medical Cente r (finding) History SDOH 2021-09-02 2021-09-[address] [facility] Alcohol Frequency 00:00:00 00:00:00 [facility] Tobacco use and 2019-01-30 2019-01-30 Never used Universit y of exposure 00:00:00 00:00:00 [facility] [place] [facility] Cigarettes smoked 2016-11-22 2016-11-[address] current (pack per 00:00:00 00:00:00 [facility] l day) - Reported Cigarette 2016-11-22 2016-11-22 [facility] pack-years 00:00:00 00:00:00 Hospital Tobacco Comment 2016-09-12 2016-09-12 smokes 5 [facility] 00:00:00 00:00:00 cigarettes per Hospital day Sex Ass[birth year] At [birth year] [facility] 00:00:00 00:00:00 [facility] Smoking Status Start Date Stop Date Source Former Smoker 2021-10-13 00:00:00 2021-10-13 00:00:00 Common S pirit - [facility] Never smoker [facility] Medications Ordered Filled Start Stop Current Ordering Indication Dosage Frequency Signature Comments Components Source Medication Medication Date Date Medication? Clinician (SIG) Name Name estradioL Yes [id number] Apply 1g Univers (ESTRACE) 2-21 vaginally ity o f 0.01 % (0.1 00:00: at bedtime [place] mg/gram) 00 every Medical vaginal night for Branch cream 2 weeks and then apply 1g vaginally at bedtime 3 times per week ( ida) nystatin 2021-0 Yes [id number] Apply to Un linda (NYSTOP) 2-21 area(s) 3 ity of 100,000 00:00: (three) [place] unit/gram 00 times Medical powder daily. Branch estradioL Yes [id number] Apply 1g Univers (ESTRACE) 2-21 vaginally ity o f 0.01 % (0.1 00:00: at bedtime [place] mg/gram) 00 every Medical vaginal night for Branch cream 2 weeks and then apply 1g vaginally at bedtime 3 times per week ( ida) nystatin 2021-0 Yes [id number] Apply to Un linda (NYSTOP) 2-21 area(s) 3 ity of 100,000 00:00: (three) [place] unit/gram 00 times Medical powder daily. Branch estradioL 2021- Yes [id number] Apply 1g Univers (ESTRACE) 2-21 vaginally ity o f 0.01 % (0.1 00:00: at bedtime [place] mg/gram) 00 every Medical vaginal night for Branch cream 2 weeks and then apply 1g vaginally at bedtime 3 times per week ( ida) nystatin 0 Yes [id number] Apply to Un linda (NYSTOP) 2-21 area(s) 3 ity of 100,000 00:00: (three) [place] unit/gram 00 times Medical powder daily. Branch methylnaltr Yes Take by Uni vers exone 2-16 mouth. ity of bromide 14:28: [place] (RELISTOR 49 Medical ORAL) Branch potassium Yes Take by Unive rs (POTASSIMIN 2-16 mouth once it y of ORAL) 14:28: now. [address] Branch spironolact 0 Yes 100mg Take 100 U nivers one 100 mg 2-16 mg by ity of tablet 14:28: mouth. [address] Branch methylnaltr 0 Yes Take by Uni vers exone 2-16 mouth. ity of bromide 14:28: [place] (RELISTOR 49 Medical ORAL) Branch potassium Yes Take by Unive rs (POTASSIMIN 2-16 mouth once it y of ORAL) 14:28: now. [address] spironolact 0 Yes 100mg Take 100 U nivers one 100 mg 2-16 mg by ity of tablet 14:28: mouth. [address] methylnaltr Yes Take by Uni vers exone 2-16 mouth. ity of bromide 14:28: [place] [facility] [place] potassium Yes Take by Unive rs (POTASSIMIN 2-16 mouth once it y of ORAL) 14:28: now. [address] spironolact 0 Yes 100mg Take 100 U nivers one 100 mg 2-16 mg by ity of tablet 14:28: mouth. [address] lactulose Yes 20g Q.[id number] Take [address] (Kristalose 2-07 [id number] packet (20 [facility] ) 20 gram 00:00: 3D g total) Medi cj packet 00 by mouth 3 Center (three) times daily START ONCE STOOLS ARE FORMED.. lactulose Yes 20g Q.[id number] Take [address] (Kristalose 2-07 [id number] packet (20 [facility] ) 20 gram 00:00: [...] capsule 56 (two) Center times daily. pantoprazol 0 Yes 1{tbl} QD Take [address] e 2-05 tablet by Gurpreet (PROTONIX) 12:13: mouth Medica l 40 MG 56 daily. Center tablet QUEtiapine 0 Yes 1{tbl} QD Take [address] (SEROqueL) 2-05 tablet by Luke s 50 MG 12:13: mouth Medical tablet 56 nightly. Center rifAXIMin Yes 1{tbl} Q.5D Take [address] (Xifaxan) 2-05 tablet by [facility] 550 mg Tab 12:13: mouth 2 Medi cj 56 (two) Center times daily. spironolact Yes 25mg QD Take [address] one 2-05 by mouth Lukes (ALDACTONE) 12:13: daily. Medi cj 50 MG 56 Center tablet thiamine Yes 1{tbl} QD Take 1 CHI S t 100 MG 2-05 tablet by [facility]ukes tablet 12:13: mouth Medical 56 daily. Center topiramate Yes 1{tbl} QD Take [address] (TOPAMAX) 2-05 tablet by [facility]ukes 50 MG 12:13: mouth Medical tablet 56 nightly. Center ubrogepant Yes 100mg Take [address] (Ubrelvy) 2-05 mg by [facility] 100 mg Tab 12:13: mouth 2 Medi cj 56 (two) Center times daily as needed. ondansetron Yes 4mg Take [address] (ZOFRAN) 4 2-05 by mouth 2 Ale[place] es MG tablet 12:13: (two) Medical 56 times Center daily as needed for Nausea. cyanocobala Yes 1000ug Inject [facility] min 2-05 1,000 mcg Lukes (VITAMIN 12:13: subcutaneo Med ical B-12) 1,000 56 usly every Ce nter mcg/mL 30 injection (thirty) days. traMADoL Yes 50mg Take [address] (ULTRAM) 50 2-05 by mouth Luke s mg tablet 12:13: every 6 Medic al 56 (six) Center hours as needed for Pain. eszopiclone 0 Yes 2mg Take [address] (LUNESTA) 2 2-05 by mouth Luke s MG tablet 12:13: every Medical 56 night as Center needed. gabapentin Yes 1{capsu Q.5D Take [address] (NEURONTIN) 2-05 le} capsule by Susanna kes 300 MG 12:13: mouth 2 Medical capsule 56 (two) Center times daily. pantoprazol 0 Yes 1{tbl} QD Take [address] e 2-05 tablet by [facility]ukes (PROTONIX) 12:13: mouth Medica l 40 MG 56 daily. Center tablet QUEtiapine Yes 1{tbl} QD Take [address] (SEROqueL) 2-05 tablet by Luke s 50 MG 12:13: mouth Medical tablet 56 nightly. Center rifAXIMin Yes 1{tbl} Q.5D Take [address] (Xifaxan) 2-05 tablet by [facility] 550 mg Tab 12:13: mouth 2 Medi cj 56 (two) Center times daily. spironolact Yes 25mg QD Take [address] one 2-05 by mouth [facility]ukes (ALDACTONE) 12:13: daily. Medi cj 50 MG 56 Center tablet thiamine Yes 1{tbl} QD Take 1 [facility]I S t 100 MG 2-05 tablet by [facility]ukes tablet 12:13: mouth Medical 56 daily. Center topiramate Yes 1{tbl} QD Take [address] (TOPAMAX) 2-05 tablet by [facility]ukes 50 MG 12:13: mouth Medical tablet 56 nightly. Center ubrogepant Yes 100mg Take [address] (Ubrelvy) 2-05 mg by [facility] 100 mg Tab 12:13: mouth 2 Medi cj 56 (two) Center times daily as needed. ondansetron Yes 4mg Take [address] (ZOFRAN) 4 2-05 by mouth 2 Alejo es MG tablet 12:13: (two) Medical 56 times Center daily as needed for Nausea. cyanocobala Yes 1000ug Inject [facility] min 2-05 1,000 mcg Lukes (VITAMIN 12:13: subcutaneo Med ical B-12) 1,000 56 usly every Ce nter mcg/mL 30 injection (thirty) days. traMADoL 0 Yes 50mg Take [address] (ULTRAM) 50 2-05 by mouth Luke s mg tablet 12:13: every 6 Medic al 56 (six) Center hours as needed for Pain. fidaxomicin 2021-0 2022- No 200mg Take [address] 200 mg Tab 2-05 02-08 tablet Lukes 00:00: 23:59 (200 mg Medical 00 :00 total) by Center mouth every 12 (twelve) hours for 3 days. fidaxomicin 2021- No 200mg Take [address] 200 mg Tab 09-1608 tablet Lukes 00:00: 23:59 (200 mg Medical 00 :00 total) by Center mouth every 12 (twelve) hours for 3 days. lactulose 2021- No 1{packe Q.[id number] Take [address] (Kristalose 2-04 02-04 t} [id number] packet by [employer] ) 20 gram 15:50: 00:00 3D mouth 3 Medi cj packet 31 :00 (three) Center times daily. lactulose 2021- No 1{packe Q.[id number] Take [address] (Kristalose 2-04 02-04 t} [id number] packet by [facility] ) 20 gram 15:50: 00:00 3D mouth 3 Medi cj packet 31 :00 (three) Center times daily. zinc Yes APPLY [facility] oxide-ulana 2-04 TOPICALLY Alejo es latum 00:00: BID. Medical (CRITIC-AID 00 Center ) 20-51 % Pste topical paste zinc [address] [facility] oxide-luana 2-04 TOPICALLY Alejo es latum 00:00: BID. Medical (CRITIC-AID 00 Center ) 20-51 % Pste topical paste nystatin 2022- No Q.5D Apply [facility] (MYCOSTATIN 2-04 02-04 topically Susanna kes ) 100,000 00:00: 23:59 2 (two) Medi cj unit/gram 00 :00 times Center powder daily. cholestyram 2022- No 1{packe Q.5D Take [address] ine 2-04 02-04 t} packet by [facility]ukes (QUESTRAN) 00:00: 23:59 mouth 2 Med ical 4 gram PwPk 00 :00 (two) Center packet times daily. nystatin 2021-0 2022- No Q.5D Apply [facility] (MYCOSTATIN 2-04 02-04 topically Susanna kes ) 100,000 00:00: 23:59 2 (two) Medi cj unit/gram 00 :00 times Center powder daily. cholestyram 2021-2022- No 1{packe Q.5D Take [address] ine 2-11 11-04 t} packet by [facility]ukes (QUESTRAN) 00:00: 23:59 mouth 2 Med ical 4 gram PwPk 00 :00 (two) Center packet times daily. acetaminoph 2021-2022- No 650mg Take [address] en 2-11 10-30 tablets [facility]ukes (TYLENOL) 00:00: 23:59 (650 mg Medi cj 325 MG 00 :00 total) by Center tablet mouth every 8 (eight) hours as needed for up to 360 days. acetaminoph 2021-2022- No 650mg Take [address] en 2- 01-30 tablets [facility]ukes (TYLENOL) 00:00: 23:59 (650 mg Medi cj 325 MG 00 :00 total) by Center tablet mouth every 8 (eight) hours as needed for up to 360 days. lidocaine 2021-2021- No 1{patch Q24H Place [address] (LIDODERM) 09-15-06 } patch onto Susanna kes 5 % patch 00:00: 23:59 the skin Med ical 00 :00 daily for Center 30 days Remove & Discard patch within 12 hours or as directed by MD. lidocaine 2021-0 2021- No 1{patch Q24H Place [address] (LIDODERM) 09-15-06 } patch onto Susanna kes 5 % patch 00:00: 23:59 the skin Med ical 00 :00 daily for Center 30 days Remove & Discard patch within 12 hours or as directed by . fidaxomicin 202-0 2022- No 200mg Take [address] 200 mg Tab 2-05 tablet Lukes 00:00: 00:00 (200 mg Medical 00 :00 total) by Center mouth every 12 (twelve) hours for 7 days. fidaxomicin 2022-0 2022- No 200mg Take [address] 200 mg Tab 2-11 11-05 tablet [facility]ukes 00:00: 00:00 (200 mg Medical 00 :00 total) by Center mouth every 12 (twelve) hours for 7 days. cholestyram 2021-0 2021- No 1{packe Q.5D Take [address] ine 2-04 02-04 t} packet by [facility]ukes (QUESTRAN) 00:00: 00:00 mouth 2 Med ical 4 gram PwPk 00 :00 (two) Center packet times daily. fidaxomicin 2-0 2022- No 200mg Take [address] 200 mg Tab 2- 02-04 tablet [facility]ukes 00:00: 00:00 (200 mg Medical 00 :00 total) by Center mouth every 12 (twelve) hours for 7 days. lidocaine 2021-0 2- No 1{patch Q24H Place [address] (LIDODERM) 2 02-04 } patch onto Susanna kes 5 % patch 00:00: 00:00 the skin Med ical 00 :00 daily for Center 30 days Remove & Discard patch within 12 hours or as directed by . cholestyram 2021-0 2- No 1{packe Q.5D Take [address] ine 2-04 02-04 t} packet by [employer] (QUESTRAN) 00:00: 00:00 mouth 2 Med ical 4 gram PwPk 00 :00 (two) Center packet times daily. fidaxomicin 2021-0 2021- No 200mg Take [address] 200 mg Tab 2- 02-04 tablet [facility]ukes 00:00: 00:00 (200 mg Medical 00 :00 total) by Center mouth every 12 (twelve) hours for 7 days. lidocaine 2021-0 2- No 1{patch Q24H Place [address] (LIDODERM) 2 02-04 } patch onto Susanna kes 5 % patch 00:00: 00:00 the skin Med ical 00 :00 daily for Center 30 days Remove & Discard patch within 12 hours or as directed by . cyanocobala 2021-0 Yes 1000ug Inject [facility] min 1-24 1,000 mcg [facility]ukes (VITAMIN 16:29: subcutaneo Med ical B-12) 1,000 58 usly every Ce nter mcg/mL 30 injection (thirty) days. ondansetron 2021-0 Yes 4mg Take [address] (ZOFRAN) 4 1-24 by mouth 2 Alejo es MG tablet 16:28: (two) Medical 14 times Center daily as needed for Nausea. ubrogepant 2022-0 Yes 100mg Take [address] [...] (two) Center times daily. lactulose Yes 1{packe Q.[id number] Take [address] (Kristalose 1-24 t} [id number] packet by [facility] ) 20 gram 16:27: 3D mouth 3 Medic al packet 52 (three) Center times daily. azithromyci 2021-0 2022- No 500mg QD Take 1 Me thodi [...] QD Take 40 mg Methodi e -15 08-[address] (PROTONIX) 18:28: 00:00 daily. [...] daily as l needed for anxiety. Per [place] Prescripti on Drug Monitoring Program records: Last filled: 11/06/20 Quantity: 30 Days Supply: 30 topiramate 2-0 Yes 50mg Q.5D Take 50 mg M ethodi (TOPAMAX) 1-[address] 50 MG 18:28: (two) Hospita tablet 48 times a l day. benztropine 2-0 Yes .25mg Q.5D Take 0.25 Methodi (COGENTIN) 1-[address] 0.5 MG 18:28: mouth 2 Hospita tablet 48 (two) l times a day. primidone 2022-0 Yes 25mg QD Take 25 mg Me thodi (MYSOLINE) 1-[address] 50 MG 18:28: nightly. Hospita tablet 48 l eszopiclone 2-0 Yes 3mg QD Take 3 mg M ethodi (LUNESTA) 3 1-[address] mg tablet 18:28: nightly. Hosp page 48 Per [facility] Prescripti on Drug Monitoring Program records: Last filled: 08/09/21 Quantity: 30 Days Supply: 30 traMADoL 2022-0 Yes 50mg Q4H Take 50 mg Met hodi (ULTRAM) 50 1-[address] mg tablet 18:28: every 4 Hospi ta 48 (four) l hours as needed for moderate pain. Per [place] Prescripti on Drug Monitoring Program records: Last [...] a tablet 47 :00 l SUMAtriptan Yes [id number] 50mg Q24H Take 1 Methodi (Imitrex) -10 [...] nightly for 30 days. pantoprazol 2021- No [id number] 40mg QD Take 1 Methodi e 08-21 [...] mouth l nightly for 30 days. thiamine 2021-2021- No 100mg QD Take 1 Metho di mononitrate 08-[address] , vit B1, 00:00: 05:59 (100 mg Hosp page (B-1) 100 00 :00 total) by l mg tablet mouth daily for 30 days. lactulose 2021- No 20g Q.25D Take 1 Meth erasto (Kristalose 08-21 02-10 packet (20 s t ) 20 gram [...] 100mg Q.5D Take 1 Me thodi oin, 2-[address] macrocrysta 00:00: 00:00 (100 mg [...] Q8H Take 1 Meth erasto (ADVIL) 400 - 03-[address] MG tablet 00:00: 05:59 [...] QD Take 1 mg Methodi (LUNESTA) 1 2-10 02-[address] MG tablet 14:27: 00:00 nightly. Hos lis 44 :00 Take l immediatel y before bedtime topiramate No 50mg QD Take 1 Meth erasto (TOPAMAX) - 02-09 tablet (50 st 50 MG 00:00: 00:00 [...] mouth l nightly for 30 days. spironolact 50mg QD Take 1 Met hodi one 04-22 tablet (50 st (ALDACTONE) 00:00: 00:00 mg total) Hospita 50 MG 00 :00 by mouth l tablet daily for 30 days. lactulose 20g Q.25D Take 1 Meth erasto (Kristalose 04-21 packet (20 s t ) 20 gram 00:00: 00:00 g total) Hos lis packet 00 :00 by mouth 4 l (four) times a day for 30 days. gabapentin No 300mg Q.[id number] Take 1 [facility] (NEURONTIN) 04-[id number] 300 mg 00:00: 00:00 3D (300 mg Hospita capsule 00 :00 total) by l mouth 3 (three) times a day for 30 days. Ketorolac Ketorolac 2020-0 No 30mg Com mon (Toradol) (Toradol) 8-24 Spiri t per 15mg per 15mg 00:00: - [facility] 00 [facility] Ketorolac Ketorolac 2020-0 No 30mg Com mon (Toradol) (Toradol) 8-24 Spiri t per 15mg per 15mg 00:00: - [facility] Ketorolac Ketorolac 2020-0 No 30mg Com mon (Toradol) (Toradol) 8-24 Spiri t per 15mg per 15mg 00:00: - [facility] Vitamin B12 Vitamin B12 2020-0 No 1000ug Common (Cyanocobal (Cyanocobal 7-24 S pirit jameson) jameson) 00:00: - [facility] Vitamin B12 Vitamin B12 2020-0 No 1000ug Common (Cyanocobal (Cyanocobal 7-24 S pirit jameson) jameson) 00:00: - [facility] Vitamin B12 Vitamin B12 2020-0 No 1000ug Common (Cyanocobal (Cyanocobal 7-24 S pirit jameson) jameson) 00:00: - [facility] pantoprazol 2019-0 2021- No [id number] 40mg QD Take 1 Methodi e 01-24 tablet (40 st (PROTONIX) 00:00: 00:00 mg total) H ospita 40 MG EC 00 :00 by mouth l tablet every morning. SUMAtriptan 2019-0 2021- No [id number] 50mg Q24H Take 1 Methodi (Imitrex) 01-24 [...] pirit jameson) jameson) 00:00: - [facility] 00 [facility] Vitamin B12 Vitamin B12 2018-08 No 1000ug Common (Cyanocobal (Cyanocobal 2-05 S pirit jameson) jameson) 00:00: - [facility] 00 [facility] Vitamin B12 Vitamin B12 2018-08 No 1000ug Common (Cyanocobal (Cyanocobal 2-05 S pirit jameson) jameson) 00:00: - [facility] 00 [facility] Vitamin B12 Vitamin B12 2018-0 No 1000ug Common (Cyanocobal (Cyanocobal 8-29 S pirit jameson) jameson) 00:00: - [facility] 00 [facility] Vitamin B12 Vitamin B12 2018-0 No 1000ug Common (Cyanocobal (Cyanocobal 8-29 S pirit jameson) jameson) 00:00: - [facility] 00 [facility] Vitamin B12 Vitamin B12 0 No 1000ug Common (Cyanocobal (Cyanocobal 8-29 S pirit jameson) jameson) 00:00: - [facility] 00 [facility] eszopiclone Yes 2mg Take 2 mg U nivers 2 mg tablet 7-29 by mouth ity of 16:42: at [place] [address] bedtime. Medical Branch GABAPENTIN Yes Take by [facility] ORAL 7-29 mouth. ity of 16:42: [place] [address] Medical Branch traMADOL 50 Yes 50mg Take 50 mg Univers mg tablet 7-29 by mouth ity of 16:42: as needed [place] [address] for Pain Medical (scale Branch 7-10). eszopiclone Yes 2mg Take 2 mg U nivers 2 mg tablet 7-29 by mouth ity of 16:42: at [place] [address] bedtime. Medical Branch GABAPENTIN Yes Take by [facility] ORAL 7-29 mouth. ity of 16:42: [place] [address] Medical Branch traMADOL 50 Yes 50mg Take 50 mg Univers mg tablet 7-29 by mouth ity of 16:42: as needed [place] [address] for Pain Medical (scale Branch 7-10). eszopiclone 2019-0 Yes 2mg Take 2 mg U nivers 2 mg tablet 7-29 by mouth ity of 16:42: at [place] [address] bedtime. Medical Branch GABAPENTIN 0 Yes Take by [facility] ers ORAL 7-29 mouth. ity of 16:42: [place] [address] Medical Branch traMADOL 50 Yes 50mg Take 50 mg Univers mg tablet 7-29 by mouth ity of 16:42: as needed [place] 13 for Pain Medical (scale Branch 7-10). lactulose 2019-0 Yes [id number] 20g Take 1 Un linda (KRISTALOSE 7-29 Packet by ity of ) 20 gram 00:00: mouth 3 [place] packet 00 (three) Medical times Branch daily. lactulose 2019-0 Yes [id number] 20g Take 1 Un linda (KRISTALOSE 7-29 Packet by ity of ) 20 gram 00:00: mouth 3 [place] packet 00 (three) Medical times Branch daily. lactulose 2019-0 Yes [id number] 20g Take 1 Un linda (KRISTALOSE 7-29 Packet by ity of ) 20 gram 00:00: mouth 3 [place] packet 00 (three) Medical times Branch daily. ondansetron 0 Yes [id number] 8mg Take 2 Univers 4 mg tablet 4-01 tablets by it y of 00:00: mouth [place] 00 every 8 Medical (eight) Branch hours as needed for Nausea and Vomiting (N/V). ondansetron 2018-0 Yes [id number] 8mg Take 2 Univers 4 mg tablet 4-01 tablets by it y of 00:00: mouth [place] 00 every 8 Medical (eight) Branch hours as needed for Nausea and Vomiting (N/V). ondansetron 2019-0 Yes [id number] 8mg Take 2 Univers 4 mg tablet 4-01 tablets by it y of 00:00: mouth [place] 00 every 8 Medical (eight) Branch hours as needed for Nausea and Vomiting (N/V). butalbital- Yes [id number] 1{capsu Take 1 Univers aspirin-caf 3-25 le} capsule by it y of feine 00:00: mouth [place] 50-325-40 00 every 4 Medical mg per (four) Branch capsule hours as needed for Pain (headache unrelieved wtih other medication s). butalbital- 2018- Yes [id number] 1{capsu Take 1 Univers aspirin-caf 3-25 le} capsule by it y of feine 00:00: mouth [place] 50-325-40 00 every 4 Medical mg per (four) Branch capsule hours as needed for Pain (headache unrelieved wtih other medication s). butalbital- 2018- Yes [id number] 1{capsu Take 1 Univers aspirin-caf 3-25 le} [...] MCG/ACT MCG/ACT MCG/ACT XIFAXAN 550 2016-08 Yes [id number] TAKE ONE Univers mg tablet 1-27 TABLET BY ity o f 00:00: MOUTH 2 [place] 00 TIMES A Medical DAY Branch PANTOPRAZOL 2016-08 Yes [id number] TAKE ONE Univers E 40 mg EC 1-27 TABLET BY ity of tablet 00:00: MOUTH [place] 00 EVERY DAY Medical Branch XIFAXAN 550 2016-08 Yes [id number] TAKE ONE Univers mg tablet 1-27 TABLET BY ity o f 00:00: MOUTH 2 [place] 00 TIMES A Medical DAY Branch PANTOPRAZOL 2016-08 Yes [id number] TAKE ONE Univers E 40 mg EC 1-27 TABLET BY ity of tablet 00:00: MOUTH [place] 00 EVERY DAY Medical Branch XIFAXAN 550 2016-08 Yes [id number] TAKE ONE Univers mg tablet 1-27 TABLET BY ity o f 00:00: MOUTH 2 [place] 00 TIMES A Medical DAY Branch PANTOPRAZOL 2016-08 Yes [id number] TAKE ONE Univers E 40 mg EC 1-27 TABLET BY ity of tablet 00:00: MOUTH [place] 00 EVERY DAY Medical Branch acetaminoph Yes [...] Allopurinol Allopurinol Yes Fernando 2 tablets [facility] Zofran ODT Zofran ODT No 1{table TID [...] TB Syringe 25G Syringe 25G Syringe X 58" 1 ML X 58" 1 ML 25G X 58" 1 ML Cyanocobala Cyanocobala No Cyanocobal min [...] TB Syringe 25G Syringe 25G Syringe X 58" 1 ML X 58" 1 ML 25G X 58" 1 ML Syringe 2-3 Syringe 2-3 No [...] ML X 58" 1 ML 25G X 5/8" 1 ML [...] 2021-04-12 Completed Universit y of Vaccine 00:00:00 [facility] [place] [facility] Influenza Virus 2021-04-12 Completed Universit y of Vaccine 00:00:00 [facility] [place] [facility] Influenza Virus 2021-04-12 Completed Universit y of Vaccine 00:00:00 [facility] [place] [facility] SARS-COV-2 COVID-19 2020-12-14 Completed Unive rsity of YANIRA/J&J VACCINE 00:00:00 [facility] [place] [facility] SARS-COV-2 COVID-19 2020-12-14 Completed Unive rsity of YANIRA/J&J VACCINE 00:00:00 [facility] [place] [facility] SARS-COV-2 COVID-19 2020-12-14 Completed Unive rsity of YANIRA/J&J VACCINE 00:00:00 [facility] [place] [facility] Ketorolac (Toradol) Ketorolac (Toradol) 2020-04-04 Completed [facility] - per 15mg per 15mg 11:19:00 [facility] Ketorolac (Toradol) Ketorolac (Toradol) 2020-04-04 Completed [facility] - per 15mg per 15mg 11:19:00 [facility] Ketorolac (Toradol) Ketorolac (Toradol) 2020-04-04 Completed [facility] - per 15mg per 15mg 11:19:00 [facility] Ketorolac (Toradol) Ketorolac (Toradol) 2020-04-04 Completed [facility] - per 15mg per 15mg 11:19:00 [facility] Ketorolac (Toradol) Ketorolac (Toradol) 2020-04-04 Completed [facility] - per 15mg per 15mg 11:19:00 [facility] Ketorolac (Toradol) Ketorolac (Toradol) 2020-04-04 Completed [facility] - per 15mg per 15mg 11:19:00 [facility] Ketorolac (Toradol) Ketorolac (Toradol) 2020-04-04 Completed [facility] - per 15mg per 15mg 11:19:00 [facility] Ketorolac (Toradol) Ketorolac (Toradol) 2020-04-04 Completed [facility] - per 15mg per 15mg 11:19:00 [facility] Vitamin B12 Vitamin B12 2019-07-16 Completed [facility] Sp[facility] - (Cyanocobalamin) (Cyanocobalamin) 13:54:00 [facility] Vitamin B12 Vitamin B12 2019-07-16 Completed Common Spiri t - (Cyanocobalamin) (Cyanocobalamin) 13:54:00 [facility] Vitamin B12 Vitamin B12 2019-07-16 Completed [facility] Spiri t - (Cyanocobalamin) (Cyanocobalamin) 13:54:00 [facility] Vitamin B12 Vitamin B12 2019-07-16 Completed [facility] Spiri t - (Cyanocobalamin) (Cyanocobalamin) 13:54:00 I [facility] Vitamin B12 Vitamin B12 2019-07-16 Completed [facility] Sp[facility] t - (Cyanocobalamin) (Cyanocobalamin) 13:54:00 I [facility] Vitamin B12 Vitamin B12 2019-07-16 Completed [facility] t - (Cyanocobalamin) (Cyanocobalamin) 13:54:00 I [facility] Vitamin B12 Vitamin B12 2019-07-16 Completed [facility] Sp[facility] t - (Cyanocobalamin) (Cyanocobalamin) 13:54:00 I [facility] Vitamin B12 Vitamin B12 2019-07-16 Completed [facility] Sp[facility] t - (Cyanocobalamin) (Cyanocobalamin) 13:54:00 I [facility] Vitamin B12 Vitamin B12 2019-04-09 Completed [facility] Sp[facility] t - (Cyanocobalamin) (Cyanocobalamin) 14:26:00 [facility] Vitamin B12 Vitamin B12 2019-04-09 Completed Common Spiri t - (Cyanocobalamin) (Cyanocobalamin) 14:26:00 I [facility] Vitamin B12 Vitamin B12 2019-04-09 Completed [facility] t - (Cyanocobalamin) (Cyanocobalamin) 14:26:00 [facility] Vitamin B12 Vitamin B12 2019-04-09 Completed [facility] t - (Cyanocobalamin) (Cyanocobalamin) 14:26:00 [facility] Vitamin B12 Vitamin B12 2019-04-09 Completed [facility] t - (Cyanocobalamin) (Cyanocobalamin) 14:26:00 [facility] Vitamin B12 Vitamin B12 2019-04-09 Completed [facility] Spiri t - (Cyanocobalamin) (Cyanocobalamin) 14:26:00 [facility] Vitamin B12 Vitamin B12 2019-04-09 Completed [facility] Sp[facility] t - (Cyanocobalamin) (Cyanocobalamin) 14:26:00 [facility] Vitamin B12 Vitamin B12 2019-04-09 Completed [facility] Spiri t - (Cyanocobalamin) (Cyanocobalamin) 14:26:00 [facility] Influenza (IM) 2018-04-21 Completed [facility] Preservative Free 00:00:00 Hospita l Influenza Virus 2018-04-21 Completed Universit y of Vaccine (3+ yrs) 00:00:00 [facility] Influenza Virus 2018-04-21 Completed Universit y of Vaccine (3+ yrs) 00:00:00 [facility] Influenza Virus 2018-04-21 Completed Universit y of Vaccine (3+ yrs) 00:00:00 [facility] Pneumococcal 2016-05-08 Completed [facility] Conjugate 13-Valent 00:00:00 Hospi mateo FLUCELVAX QUAD PF 2016-05-[address] 00:00:00 Hospital Pneumococcal 13 2016-05-08 Completed Universit y of Conjugate, PCV13 00:00:00 [facility] [place] [facility] dical (Prevnar 13) Branch Pneumococcal 13 2016-05-08 Completed Universit y of Conjugate, PCV13 00:00:00 [facility] [place] [facility] dical (Prevnar 13) Branch Pneumococcal 13 2016-05-08 Completed Universit y of Conjugate, PCV13 00:00:00 [facility] [place] [facility] dical (Prevnar 13) [place] Vital Signs Vital Name Observation Time Observation Value Comments Source Systolic blood 2021-11-16 18:59:00 111 mm[Hg] [facility] sity of pressure [facility] [place] [facility] Diastolic blood 2021-11-16 18:59:00 74 [facility] 2021-11-16 18:59:00 75 /min [facility] Body temperature 2021-11-16 18:59:00 36.67 Georgette [facility] height 2021-11-16 18:59:00 149.9 cm [facility] Body weight 2021-11-16 18:59:00 80.559 kg [facility] BMI 2021-11-16 18:59:00 35.87 kg/m2 [facility] height 2021-10-16 15:30:00 59 [in_i] [facility] weight 2021-10-16 15:30:00 176.5 [lb_av] Common [facility] temperature 2021-10-16 15:30:00 97.2 [degF] [facility] bmi 2021-10-16 15:30:00 35.64 kg/m2 [facility] oximetry 2021-10-16 15:30:00 100 % [facility] respiratory rate 2021-10-16 15:30:00 18 /min [facility] blood pressure 2021-10-16 15:30:00 123 mm[Hg] [facility] - systolic [facility] blood pressure 2021-10-16 15:30:00 65 mm[Hg] [facility] - diastolic [facility] height 2021-09-25 10:40:00 59 [in_i] [facility] weight 2021-09-25 10:40:00 190 [lb_av] [facility] temperature 2021-09-25 10:40:00 97.4 [degF] [facility] bmi 2021-09-25 10:40:00 38.37 kg/m2 [facility] blood pressure 2021-09-25 10:40:00 125 mm[Hg] Common [facility] - systolic [facility] blood pressure 2021-09-25 10:40:00 76 mm[Hg] [facility] - diastolic [facility] HEIGHT 2021-09-02 15:44:00 149.9 cm WEIGHT 2021-09-02 15:44:00 87.091 kg HEIGHT 2021-09-02 15:44:00 149.9 cm WEIGHT 2021-09-02 15:44:00 87.091 kg HEIGHT 2021-09-02 15:44:00 149.9 cm WEIGHT 2021-09-02 15:44:00 87.091 kg height 2021-04-26 10:30:00 59 [in_i] [facility] weight 2021-04-26 10:30:00 215 [lb_av] [facility] temperature 2021-04-26 10:30:00 98 [degF] [facility] bmi 2021-04-26 10:30:00 43.42 kg/m2 Common [facility] blood pressure 2021-04-26 10:30:00 121 mm[Hg] [facility] - systolic [facility] blood pressure 2021-04-26 10:30:00 70 mm[Hg] [facility] - diastolic [facility] height 2021-04-26 14:20:00 59 [in_i] [facility] weight 2021-04-26 14:20:00 215 [lb_av] [facility] temperature 2021-04-26 14:20:00 98 [degF] [facility] bmi 2021-04-26 14:20:00 43.42 kg/m2 [facility] oximetry 2021-04-26 14:20:00 100 % [facility] blood pressure 2021-04-26 14:20:00 121 mm[Hg] [facility] - systolic [facility] blood pressure 2021-04-26 14:20:00 70 mm[Hg] [facility] - diastolic [facility] Systolic blood 2021-09-16 08:00:00 98 mm[Hg] [facility] Diastolic blood 2021-09-16 08:00:00 49 mm[Hg] [facility] Heart rate 2021-09-16 08:00:00 89 /min [facility] Body temperature 2021-09-16 08:00:00 36.17 Georgette [facility] Respiratory rate 2021-09-16 08:00:00 18 /min [facility] Oxygen saturation in 2021-09-16 08:00:00 99 /min [facility] Arterial blood by Medical Jami ntperla Pulse oximetry Systolic blood 2021-09-11 19:42:00 125 mm[Hg] [facility] Diastolic blood 2021-09-11 19:42:00 60 mm[Hg] [facility] Heart rate 2021-09-11 19:42:00 98 /min [facility] Body temperature 2021-09-11 19:42:00 35.67 Georgtete [facility] Respiratory rate 2021-09-11 19:42:00 18 /min [facility] Oxygen saturation in 2021-09-11 19:42:00 100 /min [facility] Arterial blood by Medical Ce nter Pulse oximetry Body height 2021-09-02 15:44:00 149.9 cm [facility] Body weight 2021-09-02 15:44:00 87.091 kg [facility] BMI 2021-09-02 15:44:00 38.78 kg/m2 [facility] Systolic blood 2021-08-31 06:30:00 119 mm[Hg] [facility] pressure Diastolic blood 2021-08-31 06:30:00 68 mm[Hg] [facility] pressure Heart rate 2021-08-31 06:30:00 70 /min [facility] Respiratory rate 2021-08-31 06:30:00 16 /min [facility] Oxygen saturation in 2021-08-31 06:30:00 97 /min [facility] Arterial blood by Pulse oximetry Body temperature 2021-08-31 04:04:09 36.83 Georgette [facility] Body height 2021-08-31 04:04:00 149.9 cm [facility] Body weight 2021-08-31 04:04:00 89.359 kg [facility] BMI 2021-08-31 04:04:00 39.79 kg/m2 [facility] Procedures Procedure Date / Time Performing Clinician Source Performed EXTERNAL PROVIDER RECORDS 2022-02-08 05:01:00 Doctor Unassigned, No [facility] HEPATITIS A ANTIBODY, IGM 2022-01-23 15:13:00 [facility] HEPATITIS B SURFACE 2022-01-23 15:13:00 [facility] HEPATITIS B CORE ANTIBODY, 2022-01-23 15:13:00 C HI [facility] HEPATITIS C ANTIBODY 2022-01-23 15:13:00 [facility] HEPATIC FUNCTION PANEL 2021-09-15 05:20:00 [facility] & AUTO 2021-09-15 05:20:00 [facility]/INR 2021-09-15 05:20:00 Kaim, Niya White [facility] BASIC METABOLIC PANEL 2021-09-15 05:20:00 Kaim, Niyaraquel White [facility] CBC W/PLT COUNT & AUTO 2021-09-15 05:20:00 Kaim, Niya White [facility] CT ABDOMEN/PELVIS WITHOUT 2021-09-15 00:49:00 Kendy Hall [facility] IV CONTRAST [facility] CBC W/PLT COUNT & AUTO 2021-09-14 08:36:00 Kaim, Niya [facility] CBC W/PLT COUNT & AUTO 2021-09-14 08:36:00 [facility] FUN[facility]EL 2021-09-14 07:35:00 [facility]/INR 2021-09-14 07:35:[address] [facility] BASIC METABOLIC PANEL 2021-09-14 07:35:00 Kaim, Niyaraquel White C [facility] HEPATIC FUNCTION PANEL 2021-09-13 07:14:00 Kaim Niya [facility] CBC W/PLT COUNT & AUTO 2021-09-13 07:14:00 Kaim, Niya White [facility] PROTHROMBIN TIME/INR 2021-09-13 07:14:00 Kaim, Niyaraquel White [facility] BASIC METABOLIC PANEL 2021-09-13 07:14:00 Kaim, Niya Cindy C [facility] CBC W/PLT COUNT & AUTO 2021-09-13 07:14:00 Kaim, Niya [facility] HEPATIC FUNCTION PANEL 2021-09-12 04:23:00 Kaim, Niya [facility] CBC W/PLT COUNT & AUTO 2021-09-12 04:23:00 Kajag Niya Cindy [facility] PROTHROMBIN TIME/INR 2021-09-12 04:23:[address] [facility] BASIC METABOLIC PANEL 2021-09-12 04:23:00 Niya Cartagena [facility] MAGNESIUM 2021-09-12 04:23:00 Selma Lu [facility] VITAMIN B12 2021-09-12 04:23[facility] 2021-09-12 04:23[facility]IN 2021-09-12 04:23:00 [facility] CBC W/PLT COUNT & AUTO 2021-09-12 04:23:00 Kajag Niya [facility] HEPATIC FUNCTION PANEL 2021-09-11 05:33:00 Kaim Niya [facility] CBC W/PLT COUNT & AUTO 2021-09-11 05:33:00 Kajag Niya Cindy [facility] PROTHROMBIN TIME/INR 2021-09-11 05:33:00 Niya Cartagena [facility] BASIC METABOLIC PANEL 2021-09-11 05:33:00 Niya Cartagena [facility] MAGNESIUM 2021-09-11 05:33:00 Selma Lu [facility] CBC W/PLT COUNT & AUTO 2021-09-11 05:33:00 Kaim Niya [facility] HEPATIC FUNCTION PANEL 2021-09-10 06:52:00 Kaim Niya [facility] CBC W/PLT COUNT & AUTO 2021-09-10 06:52:00 Kaim Niya [facility] PROTHROMBIN TIME/INR 2021-09-10 06:52:00 Niya Cartagena [facility] BASIC METABOLIC PANEL 2021-09-10 06:52:00 Niya Cartagena C [facility] MAGNESIUM 2021-09-10 06:52:00 Selma Lu [facility] CBC W/PLT COUNT & AUTO 2021-09-10 06:52:00 [facility] 2021-09-09 05:51:00 KaimNiya [facility] CBC W/PLT COUNT & AUTO 2021-09-09 05:51:00 Kajag [facility] PROTHROMBIN TIME/INR 2021-09-09 05:51:[address] [facility] BASIC METABOLIC PANEL 2021-09-09 05:51:00 Niya Cartagena [facility] CBC W/PLT COUNT & AUTO 2021-09-09 05:51:00 Niya Cartagena [facility] (CELLAVISION MANUAL DIFF) 2021-09-09 05:51:00 Niya Cartagena [facility] AMMONIA 2021-09-08 10:54:00 Selma Lu [facility] PHOSPHORUS 2021-09-08 05:14:00 Zara Mason [facility] HEPATIC FUNCTION PANEL 2021-09-08 05:14:00 KaNiya rm [facility] CBC W/PLT COUNT & AUTO 2021-09-08 05:14:00 Niya Cartagena Cindy [facility] PROTHROMBIN TIME/INR 2021-09-08 05:14:[address] [facility] BASIC METABOLIC PANEL 2021-09-08 05:14:00 Niya Cartagena [facility] CBC W/PLT COUNT & AUTO 2021-09-08 05:14:00 Niya Cartagena [facility] (CELLAVISION MANUAL DIFF) 2021-09-08 05:14:00 Niya Cartagena on [facility] PHOSPHORUS 2021-09-07 05:37:00 Gianna Masonnalini [facility] HEPATIC FUNCTION PANEL 2021-09-07 05:37:00 Niya Cartagenaison [facility] CBC W/PLT COUNT & AUTO 2021-09-07 05:37:00 LizzimNiya [facility] PROTHROMBIN TIME/INR 2021-09-07 05:37:00 Niya Cartagena [facility] BASIC METABOLIC PANEL 2021-09-07 05:37:00 Niya Cartagena C [facility] CBC W/PLT COUNT & AUTO 2021-09-07 05:37:00 Niya Cartagena [facility] (CELLAVISION MANUAL DIFF) 2021-09-07 05:37:00 Niya Cartagena on [facility] PROTHROMBIN TIME/INR 2021-09-06 06:37:[address] [facility] BASIC METABOLIC PANEL 2021-09-06 06:37:00 Gianna Masonnalini CH I [facility] PHOSPHORUS 2021-09-06 06:37:00 Gianna Masonnalini [facility] PROTHROMBIN TIME/INR 2021-09-05 14:31:00 Niya Cartagena [facility] BASIC METABOLIC PANEL 2021-09-05 14:31:00 IsabellaGianna venturanalini CH I [facility] PHOSPHORUS 2021-09-05 14:31:00 Gianna Masonnalini [facility] CBC W/PLT COUNT & AUTO 2021-09-05 14:31:00 Juve Masonini C [facility] HEPATIC FUNCTION PANEL 2021-09-05 14:31:00 Gianna Masonnalini C [facility] CBC W/PLT COUNT & AUTO 2021-09-05 14:31:00 Zara Mason [facility] (CELLAVISION MANUAL DIFF) 2021-09-05 14:31:[address] [facility] C. DIFFICILE GDH TOXIN 2021-09-04 11:52:00 Jaqueline Vitale [facility] CT ABDOMEN/PELVIS WITH IV 2021-09-04 09:03:00 Mirian Goodman [facility] CONTRAST [facility] CT CHEST WITH IV CONTRAST 2021-09-04 09:03:[address] [facility] CBC W/PLT COUNT & AUTO 2021-09-04 04:39:00 Nia Lawrence [facility] COMPREHENSIVE METABOLIC 2021-09-04 04:39:[address] [facility] MAGNESIUM 2021-09-04 04:39:00 Nia Lawrence [facility] PHOSPHORUS 2021-09-04 04:39:00 Nia Lawrence [facility] CBC W/PLT COUNT & AUTO 2021-09-04 04:39:00 Nia Lawrence [facility] (CELLAVISION MANUAL DIFF) 2021-09-04 04:39:00 Nia Lawernce sa [facility] HEPATITIS A ANTIBODY, IGG 2021-09-03 12:02:[address] [facility] HEPATITIS B CORE ANTIBODY, 2021-09-03 12:02:00 Laura Mason ni [facility] TOTAL [facility] HEPATITIS B SURFACE 2021-09-03 12:02:00 Zara Mason [facility] ANTIBODY [facility] HEPATITIS B SURFACE 2021-09-03 12:02:00 Zara Mason [facility] ANTIGEN [facility] HEPATITIS C ANTIBODY 2021-09-03 12:02:[address] [facility] CBC W/PLT COUNT & AUTO 2021-09-03 12:01:00 Nia Lawrence [facility] COMPREHENSIVE METABOLIC 2021-09-03 12:01:[address] [facility] MAGNESIUM 2021-09-03 12:01:00 Nia Lawrence [facility] PHOSPHORUS 2021-09-03 12:01:00 Nia Lawrence [facility] PROTHROMBIN TIME/INR 2021-09-03 12:01:00 [place] [facility] W/[facility]T [facility] & AUTO 2021-09-03 12:01:00 Nia Lawrence [facility] (CELLAVISION MANUAL DIFF) 2021-09-03 12:01:00 Nia Lawrence sa [facility] BLOOD CULTURE 2021-09-03 11:59:00 Nia Lawrence [facility] OVA AND PARASITE 2021-09-02 09:44:00 Delmi, Troy Ismail [facility] GI PATHOGEN PROFILE BY PCR 2021-09-02 09:44:00 Salim, Troy Bladimir il [facility] BLOOD CULTURE 2021-09-02 06:03:00 Nia Lawrence [facility] CBC W/PLT COUNT & AUTO 2021-09-02 06:03:00 Nia Lawrence [facility] COMPREHENSIVE METABOLIC 2021-09-02 06:03:[address] [facility] MAGNESIUM 2021-09-02 06:03:00 Nia Lawrence [facility] PHOSPHORUS 2021-09-02 06:03:00 Nia Lawrence [facility] C-REACTIVE PROTEIN 2021-09-02 06:03:00 Nia Lawrence [facility] CBC W/PLT COUNT & AUTO 2021-09-02 06:03:00 Nia Lawrence [facility] (CELLAVISION MANUAL DIFF) 2021-09-02 06:03:00 Lawrence, Nia Sandee [facility] IRON, TIBC, % SAT. 2021-09-02 06:01:00 Nia Lawrence [facility] (WITHOUT FERRITIN) [facility] VITAMIN B12 AND FOLATE 2021-09-02 06:01:00 Nia Lawrence [facility] CT BRAIN WITHOUT IV 2021-09-02 02:39:00 Nia Lawrence [facility] CONTRAST [facility] US ABDOMEN LIMITED 2021-09-02 02:09:00 Nia Lawrence [facility] URINE CULTURE 2021-09-02 01:29:00 Nia Lawrence [facility] URINALYSIS W/ REFLEX URINE 2021-09-02 01:29:00 Nia Lawrence [facility] XR CHEST 1 VIEW PORTABLE / 2021-09-02 01:02:00 Nia Lawrence [facility] CBC W/PLT COUNT & AUTO 2021-09-01 22:55:00 [facility], VENOUS 2021-09-01 22:55:[address] [facility] PT/APTT 2021-09-01 22:55:00 [facility]EL 2021-09-01 22:55:[address] [facility] BASIC METABOLIC PANEL 2021-09-01 22:55:00 Nia Lawrence [facility] MAGNESIUM 2021-09-01 22:55:00 Nia Lawrence [facility] PHOSPHORUS 2021-09-01 22:55:[address] [facility] CBC W/PLT COUNT & AUTO 2021-09-01 22:55:00 Nia Lawrence [facility] (CELLAVISION MANUAL DIFF) 2021-09-01 22:55:00 Nia Lawrence [facility] POCT-GLUCOSE METER 2021-09-01 22:36:00 Dawna Anguiano [facility] CT ABDOMEN PELVIS WO 2021-08-31 05:50:00 [facility] COMPLETE BLD COUNT 2021-08-31 04:21:00 [facility] W/[facility]O DIFF [facility] COMPREHENSIVE METABOLIC 2021-08-31 04:21:00 [facility] PANEL [facility] LACTIC ACID, I-STAT 2021-08-31 04:21:00 [facility] ESTIMATED GFR 2021-08-31 04:21:00 [facility] SPIROMETRY, DIFFUSION, 2021-08-25 19:27:26 [facility] LUNG VOLUMES, MIPS/MEPS XR CHEST 2 VW 2021-08-25 18:00:20 [facility] XR PANOREX 2021-08-25 17:59:56 [facility] POC GLUCOSE 2021-08-25 13:51:00 Davina Jennifergeorge Corley spital SALEEM-POSEY VIRUS 2021-08-25 11:08:00 [facility] ANTIBODY TEST HC COMPLETE BLD COUNT 2021-08-25 11:08:00 [facility] W/AUTO DIFF COMPREHENSIVE METABOLIC 2021-08-25 11:08:00 [facility] PROTHROMBIN TIME WITH INR 2021-08-25 11:08:00 [facility]FR 2021-08-25 11:08:00 Jennifer Ghosh Ho spital POC GLUCOSE 2021-08-25 03:18:00 Davina Jennifergeorge Corley Ho spital POC GLUCOSE 2021-08-25 00:22:00 Davina Jennifergeorge Corley Ho spital POC GLUCOSE 2021-08-24 19:43:00 Jennifer Ghosh spital CREATININE LEVEL, URINE, 2021-08-24 18:13:00 Davina Jennifer [facility] TIMED PROTEIN, URINE, TIMED 2021-08-24 18:13:00 Jennifer Ghosh [facility] CV SELECTIVE CORONARY 2021-08-24 16:44:00 Cabrera Fierro [facility] ANGIOGRAPHY [place] HC COMPLETE BLD COUNT 2021-08-24 11:01:00 Ting Pierson [facility] W/AUTO DIFF [facility] BASIC METABOLIC PANEL 2021-08-24 11:01:00 Ting Pierson [facility] HEPATIC FUNCTION PANEL 2021-08-24 11:01:00 [facility] MAGNESIUM LEVEL 2021-08-24 11:01:00 Alma Girard PROTHROMBIN TIME WITH INR 2021-08-24 11:01:00 [facility] GFR 2021-08-24 11:01:00 Alma Girard spimateo [place] POC GLUCOSE 2021-08-24 03:07:00 Jennifer Ghosh spital POC GLUCOSE 2021-08-24 00:11:00 Jennifer Ghosh spital COVID-19 QUALITATIVE 2021-08-23 22:15:00 Dayo Moeller [facility] RT-PCR POC GLUCOSE 2021-08-23 19:17:00 Jennifer Ghosh Ho spital POC GLUCOSE 2021-08-23 14:05:00 Jennifer Ghosh Ho spital HC COMPLETE BLD COUNT 2021-08-23 11:49:00 Ting Pierson [facility] W/AUTO DIFF [facility] BASIC METABOLIC PANEL 2021-08-23 11:49:00 Ting Pierson [facility] HEPATIC FUNCTION PANEL 2021-08-23 11:49:00 [facility] MAGNESIUM LEVEL 2021-08-23 11:49:00 Alma Girard spimateo [place] PROTHROMBIN TIME WITH INR 2021-08-23 11:49:00 [facility] ALPHA FETOPROTEIN 2021-08-23 11:49:00 [facility] ALPHA-1 ANTITRYPSIN LEVEL 2021-08-23 11:49:00 [facility] ANTI SMOOTH MUSCLE AB 2021-08-23 11:49:[address] [facility] SCREEN C-REACTIVE PROTEIN 2021-08-23 11:49:00 [facility] CANCER ANTIGEN 125 2021-08-23 11:49:00 [facility] CANCER ANTIGEN 19-9 2021-08-23 11:49:00 [facility] CARCINOEMBRYONIC ANTIGEN 2021-08-23 11:49:00 [facility] (CEA) CERULOPLASMIN LEVEL 2021-08-23 11:49:00 [facility] CORTISOL LEVEL, RANDOM 2021-08-23 11:49:00 [facility] CORTISOL, FREE BY 2021-08-23 11:49:00 [facility] ED/LC-MS/MS CYTOMEGALOVIRUS AB, IGG 2021-08-23 11:49:00 [facility] CYTOMEGALOVIRUS AB, IGM 2021-08-23 11:49:00 [facility] DRUG KIM 9, SER/THAIS, SCRN 2021-08-23 11:49:00 [facility] W/RFLX TO CONF FERRITIN LEVEL 2021-08-23 11:49:00 [facility] FIBRINOGEN 2021-08-23 11:49:00 [facility] HEPATITIS A ANTIBODY IGM 2021-08-23 11:49:00 [facility] HEPATITIS A ANTIBODY TOTAL 2021-08-23 11:49:00 [facility] HEPATITIS B CORE ANTIBODY 2021-08-23 11:49:00 [facility] TOTAL HEPATITIS B SURFACE 2021-08-23 11:49:00 [facility] ANTIBODY HEPATITIS B SURFACE 2021-08-23 11:49:00 [facility] ANTIGEN HEPATITIS C ANTIBODY 2021-08-23 11:49:00 [facility] HIV AG/AB COMBINATION 2021-08-23 11:49:[address] [facility] HIV-1 RNA, QUALITATIVE TMA 2021-08-23 11:49:00 [facility] HLA TRANSPLANT EVALUATION 2021-08-23 11:49:00 [facility] LIPID PANEL 2021-08-23 11:49:00 [facility] BARBITURATES, S/P, QUANT 2021-08-23 11:49:00 [facility] PARTIAL THROMBOPLASTIN 2021-08-23 11:49:00 [facility] TIME (PTT) PHOSPHATIDYLETHANOL, BLOOD 2021-08-23 11:49:00 [facility] PHOSPHORUS LEVEL 2021-08-23 11:49:00 [facility] PREALBUMIN LEVEL 2021-08-23 11:49:00 [facility] SERUM ELECTROPHORESIS 2021-08-23 11:49:[address] [facility] SYPHILIS TREPONEMA SCREEN 2021-08-23 11:49:00 [facility] WITH RPR CONFIRMATION (REVERSE ALGORITHM) T3, FREE 2021-08-23 11:49:00 [facility] TB T-SPOT 2021-08-23 11:49:00 [facility] TOTAL IRON BINDING 2021-08-23 11:49:00 [facility] CAPACITY ZINC LEVEL, SERUM 2021-08-23 11:49:00 [facility] ESTIMATED GFR 2021-08-23 11:49:00 Alma Girard shane Self SINGLE ANTIGEN BEADS 2021-08-23 11:49:00 [facility] C1Q CLASS 1 & 2 ANTIBODY 2021-08-23 11:49:00 [facility] CT CHEST WO CONTRAST 2021-08-23 04:25:00 Calos Garcia [facility] POC GLUCOSE 2021-08-23 02:55:00 Jennifer Ghosh Ho spital US CAROTID DUPLEX 2021-08-23 02:40:00 Jose [facility] BILATERAL TTE COMPLETE, WO CONTRAST, 2021-08-22 23:47:00 Jose [facility] W AGITATED SALINE ([id number]) US ABDOMEN COMPLETE 2021-08-22 22:30:00 Jose [facility] ECG 12-LEAD 2021-08-22 21:31:09 [facility] POC GLUCOSE 2021-08-22 13:43:00 Jennifer Ghosh Ho yusuftal HC COMPLETE BLD COUNT 2021-08-22 10:59:00 [facility]/AUTO DIFF [facility] BASIC METABOLIC PANEL 2021-08-22 10:59:[address] [facility] HEPATIC FUNCTION PANEL 2021-08-22 10:59:00 [facility] MAGNESIUM LEVEL 2021-08-22 10:59:00 [facility] PHOSPHORUS LEVEL 2021-08-22 10:59:00 Alma Girard ospimateo [place] PROTHROMBIN TIME WITH INR 2021-08-22 10:59:00 [facility]FR 2021-08-22 10:59:00 Alma Girardtal [place] POC GLUCOSE 2021-08-22 03:06:00 Jennifer Ghosh Ho spital POC GLUCOSE 2021-08-22 00:27:00 Jennifer Ghosh Ho spital POC GLUCOSE 2021-08-21 19:09:00 Jennifer Ghosh Ho spital POC GLUCOSE 2021-08-21 13:46:00 Alma Girard spital [place] HC COMPLETE BLD COUNT 2021-08-21 10:56:00 [facility] BASIC METABOLIC PANEL 2021-08-21 10:56:00 [facility] FUNCTION PANEL 2021-08-21 10:56:00 [facility] MAGNESIUM LEVEL 2021-08-21 10:56:00 Alma Girard spital [place] PHOSPHORUS LEVEL 2021-08-21 10:56:00 Alma Girard H ospital [place] PROTHROMBIN TIME WITH INR 2021-08-21 10:56:00 [facility] ESTIMATED GFR 2021-08-21 10:56:00 Alma Girard spital [place] POC GLUCOSE 2021-08-21 03:20:00 Alma Girard spital [place] POC GLUCOSE 2021-08-20 14:56:00 Jennifer Ghosh spital HC COMPLETE BLD COUNT 2021-08-20 10:57:00 Ting Dangelo [facility] W/AUTO DIFF [facility] BASIC METABOLIC PANEL 2021-08-20 10:57:00 [facility] HE[facility] FUNCTION PANEL 2021-08-20 10:57:00 [facility] [place] MAGNESIUM LEVEL 2021-08-20 10:57:00 Alma Girard spital [place] PHOSPHORUS LEVEL 2021-08-20 10:57:00 Alma Girard ospital [place] PROTHROMBIN TIME WITH INR 2021-08-20 10:57:00 [facility] ESTIMATED GFR 2021-08-20 10:57:00 Alma Girard spital [place] POC GLUCOSE 2021-08-20 02:42:00 Alma Girard spital [place] POC GLUCOSE 2021-08-19 20:04:00 Alma Girard spital [place] HC COMPLETE BLD COUNT 2021-08-19 11:38:00 Ting Pierson [facility] W/AUTO DIFF [facility] BASIC METABOLIC PANEL 2021-08-19 11:38:00 [facility] HEPATIC FUNCTION PANEL 2021-08-19 11:38:00 [facility]olaf [facility] MAGNESIUM LEVEL 2021-08-19 11:38:00 Alma Girard spital [place] PHOSPHORUS LEVEL 2021-08-19 11:38:00 Alma Girard ospimateo Self PROTHROMBIN TIME WITH INR 2021-08-19 11:38:00 [facility] 2021-08-19 11:38:00 Alma Girard spital [place] POC GLUCOSE 2021-08-19 03:14:00 Ting Alma Pierson spital [place] POC GLUCOSE 2021-08-18 23:30:00 Ting Alma Pierson spital [place] POC GLUCOSE 2021-08-18 15:37:00 Ting Alma Pierson spital [place] URINE CULTURE 2021-08-18 12:53:00 Alma Girard URINALYSIS SCREEN AND 2021-08-18 11:31:00 [facility] MICROSCOPY, WITH REFLEX TO [place] CULTURE LACTIC ACID LEVEL, SEPSIS 2021-08-18 10:21:00 Orlando Balderrama [facility] - NOW AND REPEAT 2X EVERY 3 HOURS HC COMPLETE BLD COUNT 2021-08-18 10:21:00 [facility] W/AUTO DIFF [place] BASIC METABOLIC PANEL 2021-08-18 10:21:[address] [facility] HEPATIC FUNCTION PANEL 2021-08-18 10:21:00 [facility] [place] MAGNESIUM LEVEL 2021-08-18 10:21:00 Ting Alma Pierson spital [place] PHOSPHORUS LEVEL 2021-08-18 10:21:00 Alma Girard ospimateo Self PROTHROMBIN TIME WITH INR 2021-08-18 10:21:00 [facility] ESTIM[facility]FR 2021-08-18 10:21:00 Ting Alma Pierson LACTIC ACID LEVEL, SEPSIS 2021-08-18 07:56:00 [facility] NOW AND REPEAT 2X EVERY 3 HOURS BLOOD CULTURE, AEROBIC & 2021-08-18 05:00:00 [facility] ANAEROBIC [place] ECG 12-LEAD 2021-08-18 04:24:[address] [facility] [address] ABDOMEN PELVIS WO 2021-08-18 04:19:03 [facility] CONTRAST CT HEAD WO CONTRAST 2021-08-18 04:18:21 [facility] LACTIC ACID LEVEL, SEPSIS 2021-08-18 03:37:00 [facility] - NOW AND REPEAT 2X EVERY 3 HOURS B NATRIURETIC PEPTIDE 2021-08-18 03:37:00 [facility] PROTHROMBIN TIME WITH INR 2021-08-18 03:20:00 [facility] AMMONIA LEVEL 2021-08-18 03:20:00 [facility] TROPONIN T 2021-08-18 03:20:00 [facility] XR CHEST 1 VW PORTABLE 2021-08-18 03:14:19 [facility] HC COMPLETE BLD COUNT 2021-08-18 03:03:00 [facility] W/AUTO DIFF COMPREHENSIVE METABOLIC 2021-08-18 03:03:00 [facility] PANEL ESTIMATED GFR 2021-08-18 03:03:00 [facility] RESPIRATORY PATHOGEN PANEL 2021-08-18 03:03:00 [facility] WITH COVID-19 RT-PCR ECG ED PRELIMINARY 2021-08-18 02:54:33 [facility] INTERPRETATION COVID-19 QUALITATIVE 2021-08-11 05:31:00 [facility] COMPREHENSIVE METABOLIC 2021-08-11 05:30:00 [facility] HC COMPLETE BLD COUNT 2021-08-11 05:30:00 [facility] W/[facility]FF [facility] LACTIC ACID, I-STAT 2021-08-11 05:30:00 [facility] ESTIMATED GFR 2021-08-11 05:30:00 [facility] ECG 12-LEAD 2021-08-11 05:15:35 [facility] URINALYSIS 2021-08-11 05:00:00 [facility] XR CHEST 1 VW PORTABLE 2021-08-11 04:27:00 [facility] LACTIC ACID, I-STAT 2021-06-28 22:37:00 Romero Limon [facility] URINALYSIS 2021-06-28 21:45:00 Romero Limon spital HC COMPLETE BLD COUNT 2021-06-28 20:01:00 Romero Limon [facility] W/AUTO DIFF PROTHROMBIN TIME WITH INR, 2021-06-28 20:01:00 [facility] I-STAT COMPREHENSIVE METABOLIC 2021-06-28 20:01:00 [facility] PANEL LACTIC ACID, I-STAT 2021-06-28 20:01:00 Romero Limon [facility] SEDIMENTATION RATE 2021-06-28 20:01:00 Romero Limon [facility] ESTIMATED GFR 2021-06-28 20:01:00 Romero Limon spital COVID-19 QUALITATIVE 2021-06-28 20:01:00 Romero Limon [facility] RT-PCR BLOOD CULTURE, AEROBIC & 2021-06-28 20:01:00 Romero Limon [facility] ANAEROBIC HC COMPLETE BLD COUNT 2021-06-21 11:20:00 Pierce Marshall [facility] W/AUTO DIFF [place] BASIC METABOLIC PANEL 2021-06-21 11:20:00 Dinakar, [facility] HEPATIC FUNCTION PANEL 2021-06-21 11:20:00 Dinakar, [facility] MAGNESIUM LEVEL 2021-06-21 11:20:00 Dinakar, [facility] PROTHROMBIN TIME WITH INR 2021-06-21 11:20:00 Dinakar, [facility] PHOSPHORUS LEVEL 2021-06-21 11:20:00 Dinakar, [facility] Rastafari H ospital [place] ESTIMATED GFR 2021-06-21 11:20:00 Dinakar, [facility] PHOSPHATIDYLETHANOL, BLOOD 2021-06-21 11:20:00 [facility] URINE DRUGS OF ABUSE 2021-06-21 10:11:00 [facility] SCREEN URINALYSIS SCREEN AND 2021-06-21 10:10:[address] [facility] MICROSCOPY, WITH REFLEX TO CULTURE URINE CULTURE 2021-06-21 10:10:00 [facility] COVID-19 SEROLOGY PATIENT 2021-06-20 17:52:00 Dinakar, [facility] SURVEILLANCE [facility] COVID-19 ANTI-SPIKE IGG 2021-06-20 17:52:00 Dinakar, [facility] ANTIBODY TITER [facility] HC COMPLETE BLD COUNT 2021-06-20 11:03:00 Dinakar, [facility] W/AUTO DIFF [facility] BASIC METABOLIC PANEL 2021-06-20 11:03:00 Dinakar, [facility] HEPATIC FUNCTION PANEL 2021-06-20 11:03:00 Dinakar, [facility] MAGNESIUM LEVEL 2021-06-20 11:03:00 Dinakar, [facility] PROTHROMBIN TIME WITH INR 2021-06-20 11:03:00 Dinakar, [facility] PHOSPHORUS LEVEL 2021-06-20 11:03:00 Dinakar, [facility] Rastafari H ospital [place] ESTIMATED GFR 2021-06-20 11:03:00 Pierce Marshall Rastafari spital [place] XR ABDOMEN 1 VW PORTABLE 2021-06-20 00:11:00 Annette Mayorga [facility] AMMONIA LEVEL 2021 11:27:00 Jennifer Ghosh shane HC COMPLETE BLD COUNT 2021 11:24:00 [facility] DIFF PROTHROMBIN TIME WITH INR 2021 11:24:00 [facility] COMPREHENSIVE METABOLIC 2021 11:24:00 Davina Jennifer [facility] PANEL PHOSPHORUS LEVEL 2021 11:24:00 Jennifer Ghosh ospital MAGNESIUM LEVEL 2021 11:24:00 Jennifer Ghosh spital HEMOGLOBIN A1C 2021 11:24:00 Davina Jennifergeorge Corley spital THYROID STIMULATING 2021 11:24:00 [facility] 2021 11:24:00 [facility] VITAMIN D 25 HYDROXY LEVEL 2021 11:24:00 [facility]FR 2021 11:24:00 [facility] spital LACTIC ACID, I-STAT 2021 01:31:00 [facility] COVID-19 QUALITATIVE 2021 01:21:00 Diana Bangura [facility] RT-PCR CLOSTRIDIUM DIFFICILE 2021 00:30:00 [facility] TOXIN ENTERIC BACTERIAL PANEL 2021 00:30:00 Diana Bangura [facility] URINALYSIS 2021 00:09:00 Diana Bangura [facility] METABOLIC 2021-06-18 22:51:00 Diana Bangura [facility] PANEL AMYLASE LEVEL 2021-06-18 22:51:00 Diana Bangura [facility] ESTIMATED GFR 2021-06-18 22:51:00 Diana Bangura [facility] HC COMPLETE BLD COUNT 2021-06-18 21:51:00 [facility] W/AUTO DIFF COMPREHENSIVE METABOLIC 2021-06-18 21:51:00 Diana Bangura [facility] PANEL LACTIC ACID, I-STAT 2021-06-18 21:51:00 DavinaJennifer [facility] AMYLASE LEVEL 2021-06-18 21:51:00 Diana Bangura [facility] ESTIMATED GFR 2021-06-18 21:51:00 Diana Bangura [facility] AMMONIA LEVEL 2021-06-18 21:47:00 [facility] COMPLETE BLD COUNT 2021-06-02 09:45:00 [facility] W/AUTO DIFF PROTHROMBIN TIME WITH INR 2021-06-02 09:45:00 [facility] BASIC METABOLIC PANEL 2021-06-02 09:45:00 [facility] HEPATIC FUNCTION PANEL 2021-06-02 09:45:00 [facility] PHOSPHORUS LEVEL 2021-06-02 09:45:00 [facility] MAGNESIUM LEVEL 2021-06-02 09:45:00 [employer] [facility] ESTIMATED GFR 2021-06-02 09:45:00 [employer] [facility] US ABDOMINAL LIMITED 2021-06-01 21:06:20 Joana Ling [facility] VENIPUNC NEED PHYS 2021-06-01 14:32:45 Linda Torres [facility] SKILL,DX OR RX HC COMPLETE BLD COUNT 2021-06-01 10:30:00 [facility] W/AUTO DIFF PROTHROMBIN TIME WITH INR 2021-06-01 10:30:00 [facility] BASIC METABOLIC PANEL 2021-06-01 10:30:00 [facility] HEPATIC FUNCTION PANEL 2021-06-01 10:30:00 [facility] PHOSPHORUS LEVEL 2021-06-01 10:30:00 [facility] MAGNESIUM LEVEL 2021-06-01 10:30:00 [employer] [facility] [facility] HEMOGLOBIN A1C 2021-06-01 10:30:00 [employer] [facility] THYROID STIMULATING 2021-06-01 10:30:00 [facility] HORMONE T4 2021-06-01 10:30:00 [employer] [facility]ital VITAMIN D 25 HYDROXY LEVEL 2021-06-01 10:30:00 [facility] ZINC LEVEL, SERUM 2021-06-01 10:30:00 [facility] ALPHA FETOPROTEIN 2021-06-01 10:30:00 [facility] AMMONIA LEVEL 2021-06-01 10:30:00 [employer] [facility] ESTIMATED GFR 2021-06-01 10:30:00 [employer] [facility]ital PHOSPHATIDYLETHANOL, BLOOD 2021-06-01 10:30:00 [facility] URINE CULTURE 2021-06-01 02:48:00 [employer] BLOOD CULTURE, AEROBIC & 2021-06-01 02:43:00 [facility] ANAEROBIC BLOOD CULTURE, AEROBIC & 2021-06-01 02:42:00 [facility] ANAEROBIC URINALYSIS SCREEN AND 2021-06-01 02:40:00 [facility] MICROSCOPY, WITH REFLEX TO CULTURE URINE DRUGS OF ABUSE 2021-06-01 02:40:00 [facility] SCREEN URIC ACID LEVEL 2021-06-01 02:38:00 [employer] PROTHROMBIN TIME WITH INR 2021-06-01 02:38:00 [facility] PHOSPHORUS LEVEL 2021-06-01 02:38:00 [facility] PARTIAL THROMBOPLASTIN 2021-06-01 02:38:00 [facility] TIME (PTT) MAGNESIUM LEVEL 2021-06-01 02:38:00 [facility] HEPATIC FUNCTION PANEL 2021-06-01 02:38:00 [facility] LDH 2021-06-01 02:38:00 [facility] LACTIC ACID LEVEL 2021-06-01 02:38:00 [facility] FIBRINOGEN 2021-06-01 02:38:00 [facility] HC COMPLETE BLD COUNT 2021-06-01 02:38:00 [facility] W/AUTO DIFF BASIC METABOLIC PANEL 2021-06-01 02:38:00 [facility] AMMONIA LEVEL 2021-06-01 02:38:00 [facility] ESTIMATED GFR 2021-06-01 02:38:00 [facility] COVID-19 SEROLOGY PATIENT 2021-06-01 02:38:00 [facility] SURVEILLANCE COVID-19 ANTI-SPIKE IGG 2021-06-01 02:38:00 [facility] ANTIBODY TITER ECG 12-LEAD 2021-06-01 01:06:10 [facility] XR ABDOMEN 1 VW PORTABLE 2021-06-01 01:06:00 [facility] XR CHEST 1 VW PORTABLE 2021-06-01 01:02:00 [facility] COVID-19 QUALITATIVE 2021-06-01 00:37:00 [facility] RT-PCR HC COMPLETE BLD COUNT 2021-05-27 10:09:00 [facility] W/AUTO DIFF [place] BASIC METABOLIC PANEL 2021-05-27 10:09:00 [facility] [place] HEPATIC FUNCTION PANEL 2021-05-27 10:09:00 [facility] 2021-05-27 10:09:00 Alma Girard spital [place] PHOSPHORUS LEVEL 2021-05-27 10:09:00 Alma Girard ospimateo Self PROTHROMBIN TIME WITH INR 2021-05-27 10:09:00 [facility] [place] ESTIMATED GFR 2021-05-27 10:09:00 Alma Girard spital [place] VENOUS BLOOD GAS 2021-05-26 23:37:00 Nia Faustin COMPLETE BLD COUNT 2021-05-26 09:02:00 [facility] W/AUTO DIFF [facility] PROTHROMBIN TIME WITH INR 2021-05-26 09:02:00 [facility] COVID19 SEROLOGY PATIENT 2021-05-26 09:02:00 Abe Partida [facility] SURVEILLANCE Tom SMEAR REVIEW 2021-05-26 09:02:00 Alma Girard [place] PHOSPHATIDYLETHANOL, BLOOD 2021-05-26 09:02:00 Palak Mayorga [facility]-19 ANTI-SPIKE IGG 2021-05-26 09:02:00 Abe Partida [facility] ANTIBODY TITER Tom BASIC METABOLIC PANEL 2021-05-26 09:00:[address] [facility] HEPATIC FUNCTION PANEL 2021-05-26 09:00:00 [facility] [place] MAGNESIUM LEVEL 2021-05-26 09:00:00 Alma Girard [place] PHOSPHORUS LEVEL 2021-05-26 09:00:00 Alma Girard ALPHA FETOPROTEIN 2021-05-26 09:00:00 Emma [facility] ZINC LEVEL, SERUM 2021-05-26 09:00:00 [facility] GFR 2021-05-26 09:00:00 Alma Girard spital [place] URINALYSIS SCREEN AND 2021-05-25 23:41:00 [facility] Dangelo [facility] MICROSCOPY, WITH REFLEX TO [place] CULTURE URINE DRUGS OF ABUSE 2021-05-25 23:41:00 [facility] [place] URINE CULTURE 2021-05-25 23:41:00 Alma Girard US HEPATIC 2021-05-25 20:43:26 Alma Girard shane Self US ABDOMINAL DOPPLER 2021-05-25 20:40:00 Ting Pierson [facility] HC COMPLETE BLD COUNT 2021-05-25 18:10:00 Ting Pierson [facility] W/AUTO DIFF [facility] SMEAR REVIEW 2021-05-25 18:10:00 Alma Girard shane Castroalo VENIPUNC NEED PHYS 2021-05-25 15:59:39 Tristin Hunt [facility] SKILL,DX OR RX CBC WITH PLATELET AND 2021-05-25 13:57:00 [facility] COMPREHENSIVE METABOLIC 2021-05-25 13:57:00 [facility] PANEL [place] ESTIMATED GFR 2021-05-25 13:57:00 Alma Girard [facility] LACTIC ACID, I-STAT 2021-05-25 00:58:00 Romero Limon [facility] COVID-19 QUALITATIVE 2021-05-25 00:00:00 Romero Limon [facility] RT-PCR CT ABDOMEN PELVIS WO 2021-05-24 23:16:57 Romero Limon [facility] CONTRAST URINALYSIS 2021-05-24 22:19:00 [facility] HC COMPLETE BLD COUNT 2021-05-24 22:13:00 Romero Limon [facility] W/AUTO DIFF COMPREHENSIVE METABOLIC 2021-05-24 22:13:00 Romero Limon [facility] PANEL AMYLASE LEVEL 2021-05-24 22:13:00 [facility] 2021-05-24 22:13:00 Romero Limon [facility] ESTIMATED GFR 2021-05-24 22:13:00 [facility] BLOOD CULTURE, AEROBIC & 2021-05-24 22:00:00 Romero Limon [facility] ANAEROBIC CBC HEMOGRAM 2020-11-23 05:55:00 [facility] PROTHROMBIN TIME WITH INR 2020-11-23 05:55:00 [facility] [place] COMPREHENSIVE METABOLIC 2020-11-23 05:55:00 [facility] PANEL [facility] ESTIMATED GFR 2020-11-23 05:55:00 [facility] COVID-19 QUALITATIVE 2020-11-23 01:57:00 Wild Kvoacs [facility] RT-PCR Tomiwa LACTIC ACID, I-STAT 2020-11-23 01:40:00 Romero Limon [facility] CT HEAD WO CONTRAST 2020-11-22 23:20:00 Romero Limon [facility] HC COMPLETE BLD COUNT 2020-11-22 22:53:00 Romero Limon [facility] W/AUTO DIFF COMPREHENSIVE METABOLIC 2020-11-22 22:53:00 Romero Limon [facility] PANEL LACTIC ACID, I-STAT 2020-11-22 22:53:00 Romero Limon [facility] AMMONIA LEVEL 2020-11-22 22:53:00 Romero Limon shane VENOUS BLOOD GAS 2020-11-22 22:53:00 Romero Limon ospital ESTIMATED GFR 2020-11-22 22:53:00 Romero Limon spimateo XR ABDOMEN ACUTE INC CHEST 2020-11-02 22:51:00 Cliff Levy [facility] 1V ESTIMATED GFR 2020-11-02 21:55:00 Calos Garcia [facility] HC COMPLETE BLD COUNT 2020-11-02 21:55:00 [facility] W/AUTO DIFF COMPREHENSIVE METABOLIC 2020-11-02 21:55:00 [facility] PANEL PROTHROMBIN TIME WITH INR 2020-11-02 21:55:00 [facility] COVID-19 QUALITATIVE 2020-11-02 21:05:00 [facility] RT-PCR NM BRAIN SPECT W I 123 2020-10-26 19:02:00 Cliff Levy [facility] DATSCAN HC COMPLETE BLD COUNT 2020-10-24 10:15:00 [facility] W/AUTO DIFF BASIC METABOLIC PANEL 2020-10-24 10:15:00 [facility] HEPATIC FUNCTION PANEL 2020-10-24 10:15:00 [facility] MAGNESIUM LEVEL 2020-10-24 10:15:00 [facility] PHOSPHORUS LEVEL 2020-10-24 10:15:00 [facility] PROTHROMBIN TIME WITH INR 2020-10-24 10:15:00 [facility] HEMOGLOBIN A1C 2020-10-24 10:15:00 [facility] THYROID STIMULATING 2020-10-24 10:15:00 [facility] HORMONE T4 2020-10-24 10:15:00 [facility] VITAMIN D 25 HYDROXY LEVEL 2020-10-24 10:15:00 [facility] ZINC LEVEL, SERUM 2020-10-24 10:15:00 [facility] ALPHA FETOPROTEIN 2020-10-24 10:15:00 [facility] ESTIMATED GFR 2020-10-24 10:15:00 [facility] URINE DRUGS OF ABUSE 2020-10-24 10:00:00 [facility] SCREEN LACTIC ACID LEVEL, SEPSIS 2020-10-24 06:20:00 [facility] - NOW AND REPEAT 2X EVERY 3 HOURS LACTIC ACID LEVEL, SEPSIS 2020-10-24 02:25:00 [facility] - NOW AND REPEAT 2X EVERY 3 HOURS XR CHEST 1 VW PORTABLE 2020-10-24 00:08:00 Rehrer, [facility] [place] BLOOD CULTURE, AEROBIC & 2020-10-23 23:31:00 Rehrer, [facility] ANAEROBIC RESPIRATORY PATHOGEN PANEL 2020-10-23 23:31:00 Rehrer, [facility] WITH COVID-19 RT-PCR COMPREHENSIVE METABOLIC 2020-10-23 23:31:00 Rehrer, [facility] PANEL PHOSPHORUS LEVEL 2020-10-23 23:31:00 Rehrer, [facility] MAGNESIUM LEVEL 2020-10-23 23:31:00 Rehrer, [facility] LACTIC ACID LEVEL, SEPSIS 2020-10-23 23:31:00 [facility] - NOW AND REPEAT 2X EVERY 3 HOURS LIPASE LEVEL 2020-10-23 23:31:00 Rehrer, [facility] ESTIMATED GFR 2020-10-23 23:31:00 Rehrer, [facility] HC COMPLETE BLD COUNT 2020-10-23 23:20:00 Rehrer, [facility] W/AUTO DIFF PROTHROMBIN TIME WITH INR 2020-10-23 23:20:00 Rehrer, [facility] PARTIAL THROMBOPLASTIN 2020-10-23 23:20:00 Rehrer, [facility] [place] TIME (PTT) AMMONIA LEVEL 2020-10-23 23:20:00 Rehrer, [facility] HC COMPLETE BLD COUNT 2020-10-10 00:05:00 [facility] W/AUTO DIFF COMPREHENSIVE METABOLIC 2020-10-10 00:05:00 [facility] PANEL LACTIC ACID, I-STAT 2020-10-10 00:05:00 Wey[facility]wega [facility] AMMONIA LEVEL 2020-10-10 00:05:00 [facility] ESTIMATED GFR 2020-10-10 00:05:00 Weyauwega [facility] URINALYSIS 2020-10-09 23:32:00 [facility] ECG 12-LEAD 2020-10-09 23:18:11 Weyauwega [facility] HC COMPLETE BLD COUNT 2020-09-21 10:28:00 [facility] W/AUTO DIFF BASIC METABOLIC PANEL 2020-09-21 10:28:00 [facility] HEPATIC FUNCTION PANEL 2020-09-21 10:28:00 [facility] MAGNESIUM LEVEL 2020-09-21 10:28:00 [facility] PHOSPHORUS LEVEL 2020-09-21 10:28:00 [facility] PROTHROMBIN TIME WITH INR 2020-09-21 10:28:00 [facility] MISCELLANEOUS REFERRAL 2020-09-21 10:28:00 [facility] TEST VITAMIN B12 LEVEL 2020-09-21 10:28:00 [facility] FOLATE LEVEL 2020-09-21 10:28:00 [facility] ESTIMATED GFR 2020-09-21 10:28:00 [facility] COVID-19 QUALITATIVE 2020-09-20 20:51:00 Robby Perez [facility] RT-PCR Gabriel HC COMPLETE BLD COUNT 2020-09-20 12:08:00 [facility] W/AUTO DIFF BASIC METABOLIC PANEL 2020-09-20 12:08:00 [facility] HEPATIC FUNCTION PANEL 2020-09-20 12:08:00 [facility] MAGNESIUM LEVEL 2020-09-20 12:08:00 [facility] PHOSPHORUS LEVEL 2020-09-20 12:08:00 [facility] PROTHROMBIN TIME WITH INR 2020-09-20 12:08:00 [facility] HEMOGLOBIN A1C 2020-09-20 12:08:00 [facility] THYROID STIMULATING 2020-09-20 12:08:00 [facility] HORMONE T4 2020-09-20 12:08:00 [facility] VITAMIN D 25 HYDROXY LEVEL 2020-09-20 12:08:00 [facility] ZINC LEVEL, SERUM 2020-09-20 12:08:00 [facility] ALPHA FETOPROTEIN 2020-09-20 12:08:00 [facility] ESTIMATED GFR 2020-09-20 12:08:[address] [facility] [address] CERVICAL SPINE WO 2020-09-20 06:50:26 [facility] PELVIS WO CONTRAST 2020-09-20 06:50:16 Marcel [facility] CT HEAD WO CONTRAST 2020-09-20 06:50:07 [facility] 2020-09-20 04:05:41 Bonny Rod [facility] 30-74 MINUTES [place] URINE CULTURE 2020-09-20 04:00:00 Bonny Rod shane [place] URINALYSIS SCREEN AND 2020-09-20 04:00:00 [facility], WITH REFLEX TO [place] CULTURE URINE DRUGS OF ABUSE 2020-09-20 04:00:00 [facility] S[facility] [place] MAGNESIUM LEVEL 2020-09-20 04:00:00 Bonny Rod Ho spital [place] TROPONIN 2020-09-20 04:00:00 Bonny Rod spital [place] XR KNEE 3 VW LEFT 2020-09-20 02:06:29 [facility] [place] XR KNEE 3 VW RIGHT 2020-09-20 02:06:09 Marcel [facility] XR SHOULDER 2+ VW RIGHT 2020-09-20 02:05:46 [facility] COMPLETE BLD COUNT 2020-09-20 02:05:00 Marcel [facility] W/AUTO DIFF [facility] PROTHROMBIN TIME WITH INR 2020-09-20 02:05:00 Bonny Rod [facility] PARTIAL THROMBOPLASTIN 2020-09-20 02:05:00 Bonny Rod [facility] TIME (PTT) [place] COMPREHENSIVE METABOLIC 2020-09-20 02:05:00 [facility] [place] TROPONIN 2020-09-20 02:05:00 Bonny Rod [facility] Renee B NATRIURETIC PEPTIDE 2020-09-20 02:05:00 [facility] AMMONIA LEVEL 2020-09-20 02:05:00 Bonny Rod spital [place] ALCOHOL LEVEL, BLOOD 2020-09-20 02:05:00 [facility] 2020-09-20 02:05:00 Bonny Rod spital [place] Plan of Care Planned Activity Planned Date Details Comments Source Future Scheduled 2024-08-[address] [facility]procedure[facility] [code = Medical Center 10330682] Future Scheduled 2024-08-[address] [facility] 00:[facility]00 (procedure) [code = Medical Center 65021960] Future Scheduled 2022-04-12 INFLUENZA VACCINE (#1) [facility] [code = INFLUENZA Medical Ce nter VACCINE (#1)] Future Scheduled 2022-04-12 INFLUENZA VACCINE (#1) [facility] 00:00:00 [code = INFLUENZA Medical Ce nter VACCINE (#1)] Future Scheduled 2021-09-12 COLONOSCOPY SCREENING [facility] Test 12:13:11 [code = COLONOSCOPY SCREENING] Future Scheduled 2021-09-12 SHINGLES VACCINES (#1) [facility] 12:13:11 [code = SHINGLES VACCINES (#1)] Future Scheduled 2021-09-12 BREAST CANCER [facility] 12:13:11 SCREENING [code = BREAST CANCER SCREENING] Future Scheduled 2021-09-12 COVID-19 VACCINE (2 - [facility] 12:13:11 Booster for Yanira series) [code = COVID-19 VACCINE (2 - Booster for Yanira series)] Future Scheduled 2021-09-12 [facility]ZA [facility]ACCINE [facility] 12:13:11 [code = INFLUENZA VACCINE] Future Scheduled 2021-09-12 Screening for [facility] Test 12:13:11 malignant neoplasm of cervix (procedure) [code = 414480329] Future Scheduled 2021-08-[address] [...] Test 00:00:00 (procedure) [code = Medical Center 34533061] Future Scheduled [address] [facility] 00:[facility]00 malignant neoplasm of Medica l Center cervix (procedure) [code = 697672999] Future Scheduled [address] [facility] 00:00:00 malignant neoplasm of [facility] Center cervix (procedure) [code = 169018933] Future Scheduled [address] [facility] 00:00:00 malignant neoplasm of Medica l Center cervix (procedure) [code = 365913575] Future Scheduled 1980 DTAP/TDAP/TD VACCINES CH I [...] Medical [place] ter VACCINE (1)] Future Scheduled [address] [facility] 00:00:00 Counseling and Medical Cente r Screening (12+) [code = Tobacco Cessation Counseling and Screening (12+)] Future Scheduled 1961 COVID-19 VACCINE (#1) [facility] 00:00:00 [code = COVID-[address] VACCINE (#1)] Future Scheduled 1961 COVID-19 VACCINE (#1) [facility] 00:00:00 [code = COVID-[address] VACCINE (#1)] Future Scheduled [address] [facility] 00:00:00 malignant neoplasm of Medica l Center breast (procedure) [code = 746054773] Future Scheduled [address] [facility] 00:00:00 malignant neoplasm of Medica [facility] Center colon (procedure) [code = 525770708] Future Scheduled [address] [facility] 00:00:00 malignant neoplasm of Medica l Center breast (procedure) [code = 364200255] Future Scheduled [address] [facility] 00:00:00 (combo) [code = CT Medical C enter Colonography (combo)] Future Scheduled [address] [facility] 00:00:00 malignant neoplasm of Medica l Center colon (procedure) [code = 027230477] Future Scheduled [address] [facility] 00:00:00 malignant neoplasm of Medica l Center colon (procedure) [code = 518852662] Future Scheduled [address] [facility] 00:00:00 malignant neoplasm of Medica l Center colon (procedure) [code = 666246525] Future Scheduled [address] [facility] 00:00:00 malignant neoplasm of Medica l Center colon (procedure) [code = 891578743] Future Scheduled 1961 Sigmoidoscopy [code [facility]oscopy] Medical Cente r Future Scheduled [address] [facility] 00:00:00 malignant neoplasm of Medica l Center breast (procedure) [code = 626172871] Future Scheduled [address] [facility] 00:00:00 (combo) [code = CT Medical C enter Colonography (combo)] Future Scheduled [address] [facility] 00:00:00 malignant neoplasm of Medica l Center colon (procedure) [code = 178486981] Future Scheduled [address] [facility] 00:00:00 malignant neoplasm of Medica l Center colon (procedure) [code = 648034793] Future Scheduled [address] [facility] 00:00:00 malignant neoplasm of Medica l Center colon (procedure) [code = 746836975] Future Scheduled [address] [facility] 00:00:00 malignant neoplasm of Medica l Center colon (procedure) [code = 290852021] Future Scheduled 1961 Sigmoidoscopy [facility]oscopy] Medical Cente r Encounters Start End Encounter Admission Attending Care Care Encounter Source Date/Time Date/Time Type Type Clinicians Facility Department ID 2022-04-27 Outpatient Man, [facility] [id number] Common 10:06:00 Fernando 91389 [facility] 2022-03-26 Outpatient ER [facility] Internal [id number] 11:28:10 [facility] 2022-03-22 Outpatient Man, [facility] [id number] Common 08:23:00 Fernando 21789 [facility] 2021-09-06 [facility] [id number] Common 13:49:19 Fernando 90418 [facility] 2021-09-06 Outpatient Man, [facility] [id number] Common 13:45:16 Fernando 81375 [facility] 2021-09-06 Outpatient Man, [facility] [id number] Common 12:49:41 Fernando 69198 [facility] 2021-09-06 [facility] [id number] Common 12:05:14 Efrnando 15308 [facility] 2021-09-06 [facility] [id number] Common 12:03:44 Fernando 82811 [facility] 2021-09-06 Outpatient Man, [facility] Common 11:42:32 Fernando 72254 [facility] 2021-09-06 Outpatient Man, [facility] Common 11:33:04 Fernando 01248 [facility] 2022-06-15 2022-06-26 Inpatient TING [facility] [id number] [place] 00:00:00 00:00:00 PIERSON, [address] [place]E 2022-03-26 2022-06-15 Inpatient YORK, [facility] [id number] [place] 00:00:00 00:00:00 HERIBERTO [address] [facility] 2022-02-17 2022-02-23 Inpatient DINAKAR, [facility] [id number] [place] 00:00:00 00:00:00 PIERCE 147 Method i 2022-02-09 2022-02-09 [facility] [id number] Univers 15:00:00 15:00:00 SALLY [facility] 2022-02-09 2022-02-09 Outpatient Christiana [facility] [id number] Univers 15:00[facility]00 [facility] 2022-02-08 Orders Doctor KIRIT [id number] Univers 00:00:00 00:00:00 Only Unassigned, MICHAEL [id number] ity of [place] [facility] [id number] Brent as [phone] [address] 2022-01-30 2022-01-30 Telephone Dashawn GAKATHERINE [id number] Univers 00:00:00 00:00:00 [facility] [id number] it y of Ricki PORRAS [id number] Brent as VAMSI?BLEA [id number] Nv dical KNEY [address] [place] [facility] 2022-01-23 2022-01-23 Lab [facility] [id number] 00:00:00 00:00:00 Requisitio Alejo es n [facility] 2022-01-23 2022-01-23 Lab [facility] [id number] 00:00:00 00:00:00 Requisitio Alejo es n [facility] 2022-01-10 2022-01-10 Outpatient GALATI, [facility] [id number] [address] [place] [address] 00:00:00 00:00:[address] CAL[address] 2022-01-10 2022-01-10 Outpatient GALATI, [facility] [id number] [address] [place] [address] 00:00:00 00:00:[address] CALOS [address] 2021-11-30 2021-11-30 (TEL) [facility] [id number] Co mmon 00:00:00 00:00:00 [facility] 2021-11-16 2021-11-16 [facility] [id number] Univers 13:30:00 14:32:33 Visit Libby VERN [id number] i ty of [id number] [phone] Nv dical [facility] [address] [facility] 2021-11-16 2021-11-16 Outpatient Christiana LEVY [facility] [id number] Univers 13:30:00 14:32:33 [facility] 2021-11-16 2021-11-16 Outpatient Christiana LEVY [facility] [id number] Univers 13:30:00 13:30:00 LIBBY tatum [facility] 2021-11-16 2021-11-16 Outpatient Christiana LEVY [facility] [id number] Univers 13:30:00 13:30:00 [facility] 2021-11-10 2021-11-10 [facility] [id number] Univers 16:30:00 16:30:00 Visit Sallycalin PORRAS [id number] maverick polk RACHELEISELA [id number] Kalyani SKINNER [id number] Nv dical NAL 098 [facility] 2021-11-10 2021-11-10 Outpatient R [facility] [id number] Univers 16:30:00 13:58:19 [facility] 2021-10-27 2021-11-04 Inpatient TING [facility] [id number] [address] [place] 00:00:00 00:00:00 [address] 2021-10-16 2021-10-16 (HOSP F/U) [facility] [id number] Common 00:00:00 00:00:00 [facility] Follow Up - [facility] 2021-10-13 2021-10-13 (TEL) [facility] [id number] Co mmon 00:00:00 00:00:00 [facility] 2021-10-03 2021-10-03 [facility] [id number] 00:00:00 00:00:00 [facility] 2021-10-03 2021-10-03 [facility] [id number] 00:00:00 00:00:00 [facility] 2021-10-02 2021-10-02 Outpatient Christiana AGUDELO [facility] [id number] Univers 15:30:00 16:50:13 [facility] 2021-10-02 2021-10-02 Outpatient R CEASAR [facility] [id number] Univers 15:30:00 15:30:00 [facility] 2021-09-27 2021-09-27 Outpatient R CAM [facility] [id number] Univers 13:45:00 15:38:26 LIBBY [facility] 2021-09-27 2021-09-27 [facility] [id number] Univers 13:45:00 15:38:26 Visit Libby PORRAS [id number] i ty of [place] [id number] [id number] Nv dical [address] 2021-09-27 2021-09-27 Outpatient R [facility] [id number] Univers 13:45:00 15:38:26 LIBBY ity [facility] 2021-09-27 2021-09-27 Orders Doctor KIRIT 1.2.840.114 [id number] Univers 00:00:00 00:00:00 Only Unassigned, MICHAEL 350.1.13.10 ity of [place] [facility] 4.2.7.2.686 Brent as [phone] [address] 2021-09-25 2021-09-25 OFFICE [facility] [id number] Co mmon 00:00:00 00:00:00 VISIT Gilberto CARDENAS PT - CHI LEVEL 4 [facility] 2021-09-01 2021-09-16 Hospital heydi Dawna [facility] [id number] 22:15:00 12:13:[address] [facility] Vj, [facility] Nia Savage 2021-09-01 2021-09-16 Inpatient ER [facility], SLE Gastro [id number] SLE 22:15:00 12:13:00 KENDY 2021-09-01 2021-09-16 Hospital ER Dawna soliz [facility] [id number] 22:15:00 12:13:[address] [facility], [facility] Alissa 2021-09-04 2021-09-04 (TEL) [facility] [id number] Co mmon 00:00:00 00:00:00 Spirit - [facility] 2021-09-01 2021-09-01 Telephone Cristofer, 1.2.840.1 [id number] 128 [id number] Methodi 00:00:00 00:00:[address] Matthew 3.430.2.7 Hospit a .3.744047 l .8 2021-09-01 2021-09-01 Documentat [facility] [id number] 00:00[facility]00 00:00:00 [facility] 2021-09-01 2021-09-01 Documentat [facility] [id number] [id number] [facility] St 00:00:00 00:00:00 [facility] 2021-08-30 2021-08-[address], [facility] 064 [id number] [place] 00:00:00 00:00:00 MOISES [address] 2021-08-30 2021-08-30 Travel 1.2.840.1 1.2.424.696 4793 [id number] Methodi 00:00:00 00:00:[address] 3.430.2.7 0.2.7.3.698 Ho spita .3.910130 084.8 l .8 2021-08-29 2021-08-29 Outpatient Christiana LEVY [facility] [id number] [facility] 13:00:00 13:00:00 LIBBY tatum [facility] 2021-08-29 2021-08-29 Outpatient JOSE, [facility] [id number] 073 [place] 00:00:00 00:00:00 CALOS [address] 2021-08-29 2021-08-29 Travel 1.2.840.1 1.2.385.889 5686 251260 Methodi 00:00:00 00:00:[address] 3.430.2.7 0.2.7.3.698 Ho spita .3.243715 084.8 l .8 2021-08-25 2021-08-25 Travel 1.2.840.1 1.2.766.661 8373 337127 Methodi 00:00:00 00:00:[address] 3.430.2.7 0.2.7.3.698 Ho spita .3.067183 084.8 l .8 2021-08-17 2021-08-25 [facility] 1.2.840.1 [id number] [place] 00:00:00 00:00:00 Encounter 21593.1.[address] .3.381716 .8 2021-08-24 2021-08-24 Surgery [facility], 1.2.840.1 [id number] 36295 Methodi 09:00:00 10:25:[address] 3.430.2.7 Hospit a .3.187674 l .8 2021-08-24 2021-08-24 Documentat Delcano, 1.2.840.1 [id number] 21 [id number] Methodi 00:00:00 00:00:00 [place] [address]1.[address] Matthew 3.430.2.7 Hospit a .3.412500 l .8 2021-08-23 2021-08-23 Documentat Delcano, 1.2.840.1 [id number] 21 [id number] Methodi 00:00:00 00:00:[place] [address] Matthew 3.430.2.7 Hospit a .3.208598 l .8 2021-08-21 2021-08-21 Social Jaimes, 1.2.840.1 [id number] 277 [id number] Methodi 12:37:39 13:37:39 Work Kirit 14790.1.[address] 3.430.2.7 Hospit a .3.477633 l .8 2021-08-21 2021-08-21 Documentat Delcano, 1.2.840.1 [id number] 21 [id number] Methodi 00:00:00 00:00:[place] [address] Matthew 3.430.2.7 Hospit a .3.498950 l .8 2021-08-21 2021-08-21 Telephone Pops, 1.2.840.1 [id number] 2100 [id number] Methodi 00:00:00 00:00:[address] 3.430.2.7 Hospit a .3.230402 l .8 2021-08-18 2021-08-18 Travel 1.2.840.1 1.2.113.726 3062 258469 Methodi 00:00:00 00:00:[address] 3.430.2.7 0.2.7.3.698 Ho spita .3.218962 084.8 l .8 2021-08-10 2021-08-11 Emergency [facility], 1.2.840.1 [id number] 2 [id number] Methodi 20:25:00 01:30:[address] Kyaw 3.430.2.7 Ho spita .3.849248 l .8 2021-08-10 2021-08-10 Travel 1.2.840.1 1.2.144.871 2297 351136 Methodi 00:00:00 00:00:[address] 3.430.2.7 0.2.7.3.698 Ho spita .3.161614 084.8 l .8 2021-07-28 2021-07-28 (TEL) [facility] [id number] Co mmon 00:00:00 00:00:00 [facility] 2021-07-25 2021-07-25 Telephone Stephanie, 1.2.840.1 [id number] 256 [id number] Methodi 00:00:00 00:00:[address] 3.430.2.7 Hospit a .3.250687 l .8 2021-07-24 2021-07-24 Telephone Pops, 1.2.840.1 [id number] 2099 227326 Methodi 00:00:00 00:00:[address] 3.430.2.7 Hospit a .3.758879 l .8 2021-07-12 2021-07-12 (TEL) [facility] [id number] Co mmon 00:00:00 00:00:00 Spirit - [facility] 2021-06-29 2021-06-29 Travel 1.2.840.1 1.2.408.615 0880 450504 Methodi 00:00:00 00:00:[address] 3.430.2.7 0.2.7.3.698 Ho spita .3.505707 084.8 l .8 2021-06-28 2021-06-28 Emergency NUSZEN, [facility] [id number] [place] [address] 00:00:00 00:00:00 ROMERO [address] 2021-06-22 2021-06-22 Behavioral Jhon, 1.2.840.1 [id number] 821 [id number] Methodi 00:00:00 00:00:00 Health Kaleb 78372.1.[address] Johnny 3.430.2.7 Hospit a .3.731289 l .8 2021-06-18 2021-06-21 [facility], 1.2.840.1 [id number] [place] 00:00:00 00:00:00 Encounter [facility] 64276.1.[address] .3.682854 .8 2021-06-18 2021-06-18 Travel 1.2.840.1 1.2.616.616 2327 788257 Methodi 00:00:00 00:00:[address] 3.430.2.7 0.2.7.3.698 Ho spita .3.670037 084.8 l .8 2021-06-16 2021-06-16 Orders Teri, 1.2.840.3 [id number] Methodi 00:00:00 00:00:00 Only Eusebia Maya 22234.1.[address] 3.430.2.7 Hospit a .3.945901 l .8 2021-06-08 2021-06-08 Clinical 1.2.840.1 [id number] Methodi 12:04:06 13:04:[address] 3.430.2.7 Hospit a .3.298024 l .8 2021-06-05 2021-06-05 Telephone John, 1.2.840.1 [id number] 2100 424222 Methodi 00:00:00 00:00:[address] Johnny 3.430.2.7 Hospit a .3.417553 l .8 2021-05-31 2021-06-02 Hospital [facility], 1.2.840.1 [id number] 811 [id number] [place] 00:00:00 00:00:00 Encounter HERIBERTO 15915.1.[address] .3.543979 .8 2021-05-31 2021-05-31 Travel 1.2.840.1 1.2.594.402 1248 470509 Methodi 00:00:00 00:00:[address] 3.430.2.7 0.2.7.3.698 Ho spita .3.713398 084.8 l .8 2021-05-24 2021-05-27 [facility] 012 [id number] 53 [place] 00:00:00 00:00:00 Encounter [facility] [address] 2021-05-24 2021-05-24 Travel 1.2.840.1 1.2.793.109 6765 550437 Methodi 00:00:00 00:00:[address] 3.430.2.7 0.2.7.3.698 Ho spita .3.815731 084.8 l .8 2021-05-23 2021-05-23 (TEL) STLMLC STL[facility]C [id number] Co mmon 00:00:00 00:00:00 [facility] 2021-05-19 2021-05-19 (TEL) STLMLC STLMLC [id number] Co mmon 00:00:00 00:00:00 [facility] 2021-05-01 2021-05-01 (TEL) STLMLC STLMLC [id number] Co mmon 00:00:00 00:00:00 [facility] 2021-04-26 2021-04-26 (TEL) STLMLC STLMLC [id number] Co mmon 00:00:00 00:00:00 [facility] 2021-04-26 2021-04-26 OFFICE STLMLC STLMLC [id number] Co mmon 00:00:00 00:00:00 VISIT [facility] ESTAB PT - CHI LEVEL 4 [facility] 2021-04-26 2021-04-26 SUB ANNUAL STLMLC STLMLC [id number] Common 00:00:00 00:00:00 MCR [facility] WELLNESS - CHI VISIT [facility] 2021-01-13 2021-01-13 (TEL) STLMLC STLMLC [id number] Co mmon 00:00:00 00:00:00 [facility] 2020-12-13 2020-12-13 (TEL) STLMLC STLMLC [id number] Co mmon 00:00:00 00:00:00 [facility] 2020-11-28 2020-11-28 Patient [place], 1.2.840.1 [id number] 41605 Jayeshi 00:00:00 00:00:00 Outreach Bia 14525.1.[address] 3.430.2.7 Hospit a .3.239495 l .8 2020-11-25 2020-11-25 Patient [place], 1.2.840.1 [id number] Methodi 00:00:00 00:00:00 Outreach Bia 23065.1.[address] 3.430.2.7 Hospit a .3.901634 l .8 2020-11-24 2020-11-24 Patient Randal 1.2.840.1 [id number] 81843 Methodi 00:00:00 00:00:00 Outreach Bia 37185.1.[address] 3.430.2.7 Hospit a .3.707686 l .8 2020-11-22 2020-11-23 Emergency Wild Kovacs 1.2.840. 1 [id number] Methodi 17:29:00 16:26:00 Baylee [address]ard [address]23.1.[address] 3.430.2.7 Hospit a .3.535805 l .8 2020-11-22 2020-11-22 Travel 1.2.840.1 1.2.955.827 1412 496854 Methodi 00:00:00 00:00:[address] 3.430.2.7 0.2.7.3.698 Ho spita .3.890998 084.8 l .8 2020-11-17 2020-11-17 Outpatient STLMLC STLMLC [id number] Common 00:00:00 00:00:00 [facility] 2020-11-02 2020-11-02 [facility] Cliff Levy 1.2.840.1 104 [id number] Methodi 16:45:00 23:59:00 Encounter Calos Garcia 25315.1.[address] 3.430.2.7 Hospit a .3.167627 l .8 2020-11-02 2020-11-02 Lab Jose 1.2.840.1 [id number] 3676 Methodi 16:00:31 16:05:31 Calos Feng 85279.1.[address] 3.430.2.7 Hospit a .3.412846 l .8 2020-11-02 2020-11-02 Travel 1.2.840.1 1.2.473.604 2042 072044 Methodi 00:00:00 00:00:[address] 3.430.2.7 0.2.7.3.698 Ho spita .3.134115 084.8 l .8 2020-10-26 2020-10-26 [facility] 1.2.840.1 [id number] 151 [id number] Methodi 12:51:36 23:59:00 Encounter Cliff ChuLaurel 95246.1.[address] 3.430.2.7 Hospit a .3.742534 l .8 2020-10-26 2020-10-26 [facility] 1.2.840.1 [id number] 724 [id number] Methodi 08:10:06 12:50:00 Encounter Cliff ChuLaurel 97900.1.[address] 3.430.2.7 Hospit a .3.315819 l .8 2020-10-26 2020-10-26 Travel 1.2.840.1 1.2.482.738 9264 881892 Methodi 00:00:00 00:00:[address] 3.430.2.7 0.2.7.3.698 Ho spita .3.271248 084.8 l .8 2020-10-23 2020-10-24 [facility] 1.2.840.1 104 [id number] [id number] Methodi 17:57:00 14:46:00 Encounter Heriberto York 13299.1.[address] Gloria Girardalo 3.430.2.7 [facility] .3.729228 l .8 2020-10-13 2020-10-13 Travel 1.2.840.1 1.2.895.591 0043 648672 Methodi 00:00:00 00:00:[address] 3.430.2.7 0.2.7.3.698 Ho spita .3.128252 084.8 l .8 2020-10-12 2020-10-12 Transcribe Mildred 1.2.840.1 [id number] 2 [id number] Methodi 00:00:00 00:00:00 Orders Cliff Marion 34568.1.[address] 3.430.2.7 Hospit a .3.639618 l .8 2020-10-11 2020-10-11 Outpatient STLMLC STLC [id number] Common 00:00:00 00:00:00 [facility] 2020-10-09 2020-10-09 [facility] Roberto Carlos, 1.2.840.1 [id number] 2100 [id number] Methodi 16:28:00 19:29:[address] Gus 3.430.2.7 Hospit a .3.657783 l .8 2020-10-03 2020-10-03 Outpatient STLC STLC [id number] Common 00:00:00 00:00:00 [facility] 2020-09-19 2020-09-21 [facility] 1.2.840.1 [id number] Methodi 16:55:00 14:27:00 Encounter Heriberto York 92851.1.[address] Jennifer Ghosh 3.430.2.7 Hos lis .3.673644 l .8 2020-09-15 2020-09-15 Transcribe Jose 1.2.840.1 [id number] 210 [id number] Methodi 00:00:00 00:00:00 Orders Calos Feng 17744.1.[address] 3.430.2.7 Hospit a .3.959596 l .8 2020-09-14 2020-09-14 Outpatient STLMLC STLMLC [id number] Common 00:00:00 00:00:00 [facility] 2020-08-31 2020-09-02 Inpatient DINAKAR, [facility] [id number] 438 [place] 00:00:00 00:00:00 PIERCE [address] 2020-08-10 2020-08-13 Inpatient YORK, [facility] 012 [id number] 5746 [place] 00:00:00 00:00:00 HERIBERTO [address] 2020-08-09 2020-08-09 Emergency BRAXTON, [facility] 064 [id number] 75 [place] 00:00:00 00:00:00 ROMERO [address] 2020-08-08 2020-08-08 Emergency WEIBEL, [facility] 064 [id number] 08 [place] 00:00:00 00:00:00 NOBLE [address] 2020-07-27 2020-07-27 Outpatient STLMLC STLMLC [id number] Common 00:00:00 00:00:00 [facility] 2020-07-18 2020-07-18 Outpatient [facility] [id number] 692 [place] 00:00:00 00:00:[address] 2020-07-04 2020-07-07 Inpatient JENNIFER GHOSH [facility] 064 [id number] 65616 [place] 00:00:00 00:00:[address] 2020-06-28 2020-06-28 Outpatient STLMLC STLMLC [id number] Common 00:00:00 00:00:00 [facility] 2020-06-20 2020-06-20 Outpatient STLMLC STLMLC [id number] Common 00:00:00 00:00:00 [facility] 2020-05-30 2020-06-03 Inpatient JENNIFER GHOSH [facility] 064 [id number] [place] 00:00:00 00:00:[address] 2020-05-27 2020-05-27 Outpatient YALAMANCHIL [facility] 583 [id number] [place] 00:00:00 00:00:00 IYIFAN [address] 2020-05-20 2020-05-20 Outpatient STLMLC STLMLC [id number] Common 00:00:00 00:00:00 [facility] 2020-05-13 2020-05-17 Inpatient MCCARTAN, [facility] 064 [id number] [place] 00:00:00 00:00:00 MERCY [address] 2020-04-13 2020-04-21 Inpatient YOJANA, [facility] 064 [id number] 65 [place] 00:00:00 00:00:00 JUNO [address] 2020-04-13 2020-04-13 Outpatient [facility] [id number] Common 16:02:00 16:02:[address] [facility] 2020-04-13 2020-04-13 Outpatient [facility] [id number] Common 09:33:00 09:33:[address] [facility] 2020-04-05 2020-04-05 Outpatient [facility] 32 [id number] Common 09:10:00 09:10:[address] [facility] 2020-04-04 2020-04-04 Outpatient [facility] 32 [id number] Common 10:58:00 10:58:[address] [facility] 2020-04-04 2020-04-04 Outpatient [facility] [id number] Common 10:00:00 10:00:[address] [facility] 2020-03-17 2020-03-19 Inpatient TING [facility] 064 [id number] 84 [place] 00:00:00 00:00:00 Fausto PIERSON2 Method i [facility] 2020-03-16 2020-03-16 Outpatient [facility] [id number] Common 11:12:00 11:12:[address] [facility] 2020-03-14 2020-03-14 Outpatient JACQUELIN, [facility] [id number] [place] 00:00:00 00:00:00 EBONY [address] 2020-03-10 2020-03-10 Outpatient [facility] [id number] Common 13:18:00 13:18:[address] [facility] 2020-03-07 2020-03-07 Outpatient [facility] 31 [id number] Common 16:07:00 16:07:[address] [facility] 2020-03-04 2020-03-04 Outpatient [facility] [id number] Common 11:00:00 11:00:[address] [facility] 2020-03-04 2020-03-04 Outpatient [facility] 30 [id number] Common 11:00:00 11:00:[address] [facility] 2020-03-04 2020-03-04 Outpatient MEAGAN, [facility] [id number] 128 [place] 00:00:00 00:00:00 JAYASIMHA 578 Meth erasto 2020-02-18 2020-02-21 Inpatient YORK, [facility] 064 [id number] 6921 [place] 00:00:00 00:00:00 HERIBERTO 304 Method i 2020-01-18 2020-01-20 Inpatient DINAKAR, [facility] 094 [id number] 718 [place] 00:00:00 00:00:00 PIERCE 881 Method i 2020-01-07 2020-01-11 Inpatient YORK, [facility] 064 [id number] 7442 [place] 00:00:00 00:00:00 HERIBERTO 087 Method i 2019-12-29 2019-12-29 Outpatient [facility] [id number] Common 07:03:00 07:03:[address] [facility] 2019-12-23 2019-12-25 Inpatient TING [facility] 064 [id number] 99 [place] 00:00:00 00:00:00 PIERSON, 540 Method i BAYLEE 2019-12-23 2019-12-23 Outpatient JACQUELIN, [facility] [id number] 2747 [place] 00:00:00 00:00:00 AHMED 960 Method i 2019-12-22 2019-12-22 Office Shekhar GAKATHERINE 1.2.840.114 [id number] 14:08:03 14:56:41 Visit [facility] 350.1.13.10 Surgical 4.2.7.2.686 Specialti [phone] es 198 [place] 2019-12-22 2019-12-22 [facility] 1.2.840.114 [id number] Univers 14:08:03 14:56:41 Visit [facility] 350.1.13.10 it y of Surgical 4.2.7.2.686 Brent as Specialti [phone] Nv dical es 198 [facility] 2019-12-22 2019-12-22 Outpatient [facility] [id number] Univers 14:15:00 14:15:00 LITA ity [facility] 2019-12-15 2019-12-15 [facility] 1.2.840.114 [id number] Univers 14:57:28 15:12:28 Visit [facility] 350.1.13.10 it y of Surgical 4.2.7.2.686 Bernt as Specialti [phone] Nv dical es 198 [facility] 2019-12-15 2019-12-15 Outpatient Christiana [facility] [id number] Univers 15:00:00 15:00:00 LITA ity [facility] 2019-12-08 2019-12-08 [facility] 1.2.840.114 [id number] Univers 15:45:23 16:15:13 Visit [facility] 350.1.13.10 it y of Surgical 4.2.7.2.686 Brent as Specialti [phone] Nv dical es 198 [facility] 2019-12-08 2019-12-08 Outpatient Christiana [facility] [id number] Univers 16:00:00 16:00:00 LITA ity [facility] 2019-12-08 2019-12-08 Outpatient Christiana [facility] [id number] Univers 13:45:00 13:45:00 LITA ity [facility] 2019-10-30 2019-10-30 Outpatient Christiana [facility] [id number] Univers 10:15:00 10:15:00 [facility] 2019-10-26 2019-10-26 Orders Doctor BETH 1.2.840.114 [id number] Univers 00:00:00 00:00:00 Only Unassigned, MICHAEL 350.1.13.10 ity of [place] [facility] 4.2.7.2.686 Brent as [phone] [address] 2019-10-22 2019-10-22 Outpatient Christiana [facility] [id number] Univers 16:15:00 16:15:00 [facility] 2019-10-22 2019-10-22 [facility] 1.2.840.114 [id number] Univers 10:06:57 10:56:32 Visit [facility] 350.1.13.10 it y of Surgical 4.2.7.2.686 Brent as Specialti [phone] Me dical es 198 [facility] 2019-10-22 2019-10-22 Outpatient Christiana [facility] [id number] Univers 10:15:00 10:15:00 [facility] 2019-10-12 2019-10-[address] [facility] 012 [id number] 7739 [place] 00:00:00 00:00:00 HERIBERTO 906 Method i 2019-09-24 2019-09-24 [facility] 1.2.840.114 [id number] Univers 11:21:26 11:41:20 Visit [facility] 350.1.13.10 it y of Surgical 4.2.7.2.686 Brent as Specialti [phone] Me dical es 198 [facility] 2019-09-24 2019-09-24 Outpatient Christiana [facility] [id number] Univers 11:15:00 11:41:20 [facility] 2019-09-01 2019-09-03 [facility] [id number] [place] 00:00:00 00:00:00 HERIBERTO [address] 2019-07-20 2019-07-20 Outpatient [facility] [id number] Common 14:02:00 14:02:[address] [facility] 2019-07-16 2019-07-16 Outpatient [facility] [id number] Common 13:15:00 13:15:[address] [facility] 2019-06-16 2019-06-18 [facility] [id number] [place] 00:00:00 00:00:00 HERIBERTO 382 Method i 2019-05-07 2019-05-08 Outpatient DARCY, UMAR [facility] [id number] [place] 00:00:00 00:00:00 691 Method i 2019-04-23 2019-04-23 Outpatient GALATI, [facility] [id number] 307 [place] 00:00:00 00:00:00 CALOS 089 Method i 2019-04-23 2019-04-23 Outpatient JACQUELIN, [facility] [id number] [place] 00:00:00 00:00:00 AHMED 724 Method i 2019-04-15 2019-04-15 Outpatient [facility] [id number] Common 14:19:00 14:19:[address] [facility] 2019-04-09 2019-04-09 Outpatient [facility] [id number] Common 14:00:00 14:00:[address] [facility] 2019-03-10 2019-03-10 Transition Bennie Ma 1.2.840.114 [id number] Univers 00:00:00 00:00:00 of Care Anabell Almaguer 350.1.13.10 it y of [place] 4.2.7.2.686 [facility] [phone] [facility] [address] 2019-03-06 2019-03-09 [facility] DiannkazrikaAkanksha 1.2.840. 114 [id number] [facility] 00:42:03 16:11:00 Encounter Indra Motta 350.1.13.1 0 ity of [facility] 4.2.7.2.686 [place] [phone] [facility] [address] 2019-01-21 2019-01-21 Emergency X PALMER, [facility] ERT [id number] Univers 19:21:56 22:21:00 MARTELL ity of [facility] 2018-09-09 2018-09-09 [facility]patient [facility] [id number] Common 14:45:00 14:45:[address] [facility] 2018-04-15 2018-04-15 Outpatient [place] [id number] Common 12:02:00 12:02:[address] [facility] 2018-02-19 2018-02-19 Outpatient [place] [place] [id number] Common 15:08:00 15:08:[address] [facility] 2018-01-24 2018-01-24 Outpatient [place] [place] [id number] Common 11:15:00 11:15:[address] [facility] Results Test Description Test Time Test Comments Results Result Comments Source SARS-CoV-2 (COVID-19) RNA [Presence] in Respiratory sp ecimen by 2022-06-14 00:24:44 GUSTAVO with probe detection Test Item Value Reference Range Interpretation Comme nts SARS-CoV-2 (COVID-19) RNA [Presence] in Respiratory specimen by Not detected GUSTAVO with probe detection (test code = 57940-5) 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 (test code = Un known 83468-5) Whether the patient has symptoms related to condition of interest U nknown (test code = 21562-9) Whether the patient was hospitalized for condition of interest Unkn own (test code = 85103-5) Whether the patient was admitted to intensive care unit (ICU) for U nknown condition of interest (test code = 73801-4) Whether patient resides in a congregate care setting (test code = U nknown 49896-3) status (test code = 80671-3) Unknown Date and time of symptom onset (test code = 64315-7) Unknown [facility] DEANQYWZ[facility]-OxG-8 (COVID-19) RNA [Presence] in Respiratory specimen by GUSTAVO with probe [id number] 07:50:50 Test Item Value Reference Range Interpretation Comments SARS-CoV-2 (COVID-19) RNA Not detected [Presence] in Respiratory specimen by GUSTAVO with probe detection (test code = 31343-2) 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 employed in a Unknown healthcare setting (test code = 90820-8) Whether the patient has symptoms Unknown related to condition of interest (test code = 67181-3) Whether the patient was Unknown hospitalized for condition of interest (test code = 67982-3) Whether the patient was admitted Unknown to intensive care unit (ICU) for condition of interest (test code = 08713-0) Whether patient resides in a Unknown congregate care setting (test code = 68196-7) status (test code = Unknown 13249-2) Date and time of symptom onset Unknown (test code = 10578-4) PHI MICHAELSARS-CoV-2 (COVID-19) RNA [Presence] in Respiratory specimen by GUSTAVO with probe [id number] 19:18:03 Test Item Value Reference Range Interpretation Comments SARS-CoV-2 (COVID-19) RNA Not detected [Presence] in Respiratory specimen by GUSTAVO with probe detection (test code = 02122-9) 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 employed in a No healthcare setting (test code = 89172-0) Whether the patient has symptoms Yes related to condition of interest (test code = 92847-5) Whether the patient was No hospitalized for condition of interest (test code = 63233-5) Whether the patient was admitted No to intensive care unit (ICU) for condition of interest (test code = 57749-0) Whether patient resides in a No congregate care setting (test code = 36592-2) status (test code = No 29116-6) Date and time of symptom onset Unknown (test code = 87845-9) PHI MICHAELSARS-CoV-2 (COVID-19) RNA [Presence] in Respiratory specimen by GUSTAVO with probe [id number] 11:44:34 Test Item Value Reference Range Interpretation Comments SARS-CoV-2 (COVID-19) RNA Not detected [Presence] in Respiratory specimen by GUSTAVO with probe detection (test code = 02910-4) 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 employed in a Unknown healthcare setting (test code = 06139-5) Whether the patient has symptoms Unknown related to condition of interest (test code = 09147-0) Whether the patient was Unknown hospitalized for condition of interest (test code = 15916-0) Whether the patient was admitted Unknown to intensive care unit (ICU) for condition of interest (test code = 36768-4) Whether patient resides in a Unknown congregate care setting (test code = 32933-3) status (test code = Unknown 23913-0) Date and time of symptom onset Unknown (test code = 90818-2) PHI MICHAELSARS-CoV-2 (COVID-19) RNA [Presence] in Respiratory specimen by GUSTAVO with probe [id number] 05:03:29 Test Item Value Reference Range Interpretation Comments SARS-CoV-2 (COVID-19) RNA Not detected [Presence] in Respiratory specimen by GUSTAVO with probe detection (test code = 47134-4) 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 employed in a Unknown healthcare setting (test code = 82836-0) Whether the patient has symptoms Unknown related to condition of interest (test code = 22010-9) Whether the patient was Unknown hospitalized for condition of interest (test code = 64332-4) Whether the patient was admitted Unknown to intensive care unit (ICU) for condition of interest (test code = 30911-6) Whether patient resides in a Unknown congregate care setting (test code = 84805-3) status (test code = Unknown 66794-1) Date and time of symptom onset Unknown (test code = 26756-3) PHI DEANRS-CoV-2 (COVID-19) RNA [Presence] in Respiratory specimen by GUSTAVO with probe dvftewkmw3065-45-77 16:50:47 Test Item Value Reference Range Interpretation Comments SARS-CoV-2 (COVID-19) RNA Not detected [Presence] in Respiratory specimen by GUSTAVO with probe detection (test code = 10443-9) 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 employed in a Unknown healthcare setting (test code = 25587-3) Whether the patient has symptoms Unknown related to condition of interest (test code = 25529-8) Whether the patient was Unknown hospitalized for condition of interest (test code = 03252-4) Whether the patient was admitted Unknown to intensive care unit (ICU) for condition of interest (test code = 35897-3) Whether patient resides in a Unknown congregate care setting (test code = 12443-5) status (test code = Unknown 86650-9) Date and time of symptom onset Unknown (test code = 55661-1) PHI MICHAEL72197-MRI ENTEROGRAPHY ABDOMEN & PELVIS W/[id number] 13:32:43[facility] : 1960 Sex: FCLINICAL INDICATIO N: K50.90, Crohns disease, unspecified, without complications K92.1, Melena R19.4, Change in bowel habitMODALITY: [employer] 3T MRITECHNIQUE: Parallel imaging is accomplished using T2, in-phase, knl-fr-ejfgb, and breath-holding sequences. MR enterography techniques are [...] HBsAg. Lab Interpretation (test Normal code = 78490-4) [facility] B core antibody, [id number] 23:01:06 Test Item Value Reference Range Interpretation Comments Hep B C IgM (test code = Nonreactive Nonreactive 33880-6) REJI (test code = REJI) Senior Grant Writer ID - ADMIN Lab Interpretation (test Normal code = 67920-0) [facility] [id number] 23:01:06 Test Item Value Reference Range Interpretation Comments Hep A IgM (test code = Nonreactive Nonreactive 95269-0) REJI (test code = REJI) Senior Grant Writer ID - ADMIN Lab Interpretation (test Normal code = 37732-4) [facility] kgpxmbqw2519-88-06 23:01:06 Test Item Value Reference Range Interpretation Comments Hepatitis C Ab (test code Nonreactive Nonreactive = 36358-2) REJI (test code = REJI) Senior Grant Writer ID - ADMIN Lab Interpretation (test Normal code = 07045-6) [facility] surface [id number] 23:01:06 Test Item Value Reference Range Interpretation Comments Hepatitis B surface Nonreactive Nonreactive antigen (test code = 5195-3) REJI (test code = REJI) Specimen is considered negative for HBsAg. Lab Interpretation (test Normal code = 19334-9) [facility] B core antibody, [id number] 23:01:06 Test Item Value Reference Range Interpretation Comments Hep B C IgM (test code = Nonreactive Nonreactive 32152-9) REJI (test code = REJI) Senior Grant Writer ID - ADMIN Lab Interpretation (test Normal code = 30267-4) [facility] [id number] 23:01:06 Test Item Value Reference Range Interpretation Comments Hep A IgM (test code = Nonreactive Nonreactive 82762-4) REJI (test code = REJI) Senior Grant Writer ID - ADMIN Lab Interpretation (test Normal code = 20428-3) [facility] tzgspfob8860-48-91 23:01:06 Test Item Value Reference Range Interpretation Comments Hepatitis C Ab (test code Nonreactive Nonreactive = 47080-7) REJI (test code = REJI) Senior Grant Writer ID - ADMIN Lab Interpretation (test Normal code = 51240-8) [facility] B SURFACE [id number] 23:01:06 Test Item Value Reference Range Interpretation Comments HEPATITIS B SURFACE ANTIGEN (2) Nonreactive Nonreactive (BEAKER) (test code = 2585) Specimen is considered negative for HBsAg.HEPATITIS B CORE ANTIBODY, IGM 2022-01-23 23:01:06 Test Item Value Reference Range Interpretation Comments HEPATITIS B CORE IGM ANTIBODY Nonreactive Nonreactive (BEAKER) (test code = 645) Senior Grant Writer ID - ADMINHEPATITIS C [id number] 23:01:06 Test Item Value Reference Range Interpretation Comments HEPATITIS C ANTIBODY (BEAKER) Nonreactive Nonreactive (test code = 367) Senior Grant Writer ID - ADMINHEPATITIS A ANTIBODY, [id number] 23:01:06 Test Item Value Reference Range Interpretation Comments HEPATITIS A IGM ANTIBODY (BEAKER) Nonreactive Nonreactive (test code = 498) Senior Grant Writer ID - HXFSEKHFA-TaI-9 (COVID-19) RNA [Presence] in Respiratory specimen by GUSTAVO with probe hjexdixno9730-37-92 04:55:57 Test Item Value Reference Range Interpretation Comments SARS-CoV-2 (COVID-19) RNA Not detected [Presence] in Respiratory specimen by GUSTAVO with probe detection (test code = 28557-4) 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 employed in a Unknown healthcare setting (test code = 86497-9) Whether the patient has symptoms Unknown related to condition of interest (test code = 79057-6) Whether the patient was Unknown hospitalized for condition of interest (test code = 34556-5) Whether the patient was admitted Unknown to intensive care unit (ICU) for condition of interest (test code = 12154-2) Whether patient resides in a Unknown congregate care setting (test code = 55336-8) status (test code = Unknown 78473-5) Date and time of symptom onset Unknown (test code = 08214-8) PHI DEANRS-CoV-2 (COVID-19) RNA [Presence] in Respiratory specimen by GUSTAVO with probe ewvhpovnq7550-62-35 01:48:29 Test Item Value Reference Range Interpretation Comments SARS-CoV-2 (COVID-19) RNA Not detected [Presence] in Respiratory specimen by GUSTAVO with probe detection (test code = 54210-8) 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 employed in a Unknown healthcare setting (test code = 20690-7) Whether the patient has symptoms Unknown related to condition of interest (test code = 59533-5) Whether the patient was Unknown hospitalized for condition of interest (test code = 68359-9) Whether the patient was admitted Unknown to intensive care unit (ICU) for condition of interest (test code = 31615-2) Whether patient resides in a Unknown congregate care setting (test code = 54243-6) status (test code = Unknown 47715-4) Date and time of symptom onset Unknown (test code = 58544-3) PHI CORLEY WESTCT, [id number] 08:50:00Unlisted Reason for Exam - Click Yes and Enter Reason Below->YesUnlisted Reason for Exam->diarrhea. abdominal pain. C dif colitis.Is this for enterography?->NoWill this procedure require oral contrast?->No [facility] : 1960 Sex: [...] Small right pleural effusion. Signed: [facility] Sims [facility] Verified Date/Time: 09/15/2021 08:50:57 Basic Metabolic [id number] 07:34:36 Test Item Value Reference Range Interpretation Comments Sodium (test code = 138 meq/L 733-627 3301-2) Potassium (test code 3.7 meq/L 3.5-5.1 Specime n = 2823-3) slightly hemolyzed Chloride (test code = 105 meq/L 98-107 5-0) CO2 (test code = 26 meq/L 22-29 2027-9) BUN (test code = 10 mg/dL 7-21 3094-0) Creatinine (test code 0.72 mg/dL 0.57-1.25 Specim en = 2160-0) slightly hemolyzed Glucose (test code = 60 mg/dL 70-105 L 2345-7) Calcium (test code = 7.5 mg/dL 8.4-10.2 L 57784-1) EGFR (test code = 83 mL/min/1.[place] [address]-1) NOT ACCURATE CREATININE CLEARANCE IN PREDICTING GLOMERULAR FILTRATION RATE . ESTIMATED GFR I S NOT APPLICABLE FOR DIALYSIS PATIENTS. REJI (test code = REJI) Senior Grant Writer ID - EOSpecimen moderately icteric Lab Interpretation Abnormal (test code = 81710-2) [facility] Metabolic [id number] 07:34:36 Test Item Value Reference Range Interpretation Comments Sodium (test code = 138 meq/L 752-209 3066-2) Potassium (test code 3.7 meq/L 3.5-5.1 Specime n = 2823-3) slightly hemolyzed Chloride (test code = 105 meq/L 98-107 2075-0) CO2 (test code = 26 meq/L 22-29 8-9) BUN (test code = 10 mg/dL 7-21 3094-0) Creatinine (test code 0.72 mg/dL 0.57-1.25 Specim en = 2160-0) slightly hemolyzed Glucose (test code = 60 mg/dL 70-105 L 2345-7) Calcium (test code = 7.5 mg/dL 8.4-10.2 L 27425-9) EGFR (test code = 83 mL/min/1.[place] [address]-4) NOT ACCURATE CREATININE CLEARANCE IN PREDICTING GLOMERULAR FILTRATION RATE . ESTIMATED GFR I S NOT APPLICABLE FOR DIALYSIS PATIENTS. REJI (test code = REJI) Senior Grant Writer ID - EOSpecimen moderately icteric Lab Interpretation Abnormal (test code = 81665-3) [facility] METABOLIC [id number] 07:34:36 Test Item Value Reference Range Interpretation [...] S NOT APPLICABLE FOR DIALYSIS PATIEN TS. Senior Grant Writer ID - EOSpecimen moderately ictericHepatic function [id number] 07:29:08 Test Item Value Reference Range Interpretation Comments Protein, Total (test 5.2 See_Comment L Specime n slightly code = 2885-2) hemolyzed [Automated message] The system which generated this result transmitted reference range : 6.0 - 8.3 gm/dL . The reference range was not used to interpr et this result as normal/abnormal . Albumin (test code = 2.1 g/dL 3.5-5.0 L Specime n slightly 68705-8) hemolyzed Total Bilirubin (test 3.9 mg/dL 0.2-1.2 [...] 1742-6) hemolyzed REJI (test code = REJI) Senior Grant Writer ID - EOSpecimen moderately icteric Lab Interpretation Abnormal (test code = 33958-7) [facility] [id number] 07:29:08 Test Item Value Reference Range Interpretation Comments Protein, Total (test 5.2 See_Comment L Specime n slightly code = 2885-2) hemolyzed [Automated message] The system which generated this result transmitted reference range : 6.0 - 8.3 gm/dL . The reference range was not used to interpr et this result as normal/abnormal . Albumin (test code = 2.1 g/dL 3.5-5.0 L Specime n slightly 61914-9) hemolyzed Total Bilirubin (test 3.9 mg/dL 0.2-1.2 H Specim en slightly code = 1975-2) hemolyzed Bilirubin, Direct 1.5 mg/dL 0.1-0.5 H Specimen s lightly (test code = 1967-7) hemolyz ed Alkaline Phosphatase 95 U/L 40-150 (test code = 6768-6) AST (test code = 37 U/L 5-34 H Specimen sl ightly 1920-8) hemolyzed ALT (test code = 18 U/L 6-55 Specimen sl ightly 1742-6) hemolyzed REJI (test code = REJI) Senior Grant Writer ID - EOSpecimen moderately icteric Lab Interpretation Abnormal (test code = 30989-6) [facility] FUN[facility] [id number] 07:29:08 Test Item Value Reference Range Interpretation [...] Specimen slightly (test code = 347) hemolyzed Senior Grant Writer ID - EOSpecimen moderately ictericProthrombin time/[id number] 06:46:58 Test Item Value Reference Interpretation Comments [...] valves. Lab Interpretation Abnormal (test code = 08968-6) [facility] HospitalProthrombin time/[id number] 06:46:58 Test Item Value Reference Interpretation Comments [...] valves. Lab Interpretation Abnormal (test code = 24560-1) [facility] HospitalPROTHROMBIN TIME/[id number] 06:46:58 Test Item Value Reference Range Interpretation Comments PROTIME (BEAKER) 22.1 seconds 11.9-14.2 H (test code = 759) INR (BEAKER) (test 1.96 See_Comment [Automat ed message] code = 370) The system ic h generated this result transmitted ref erence range: <=5.90. The reference range was not used to int erpret this result as normal/abnormal . RECOMMENDED COUMADIN/WARFARIN INR THERAPY RANGESSTANDARD DOSE: 2.0 - 3.0 Includes: PROPHYLAXIS for venous thrombosis, systemic embolization; TREATMENT for venous thrombosis and/or pulmonary embolus.HIGH RISK: Target INR is 2.5-3.5 for patients with mechanical heart valves.CBC with platelet count + automated [id number] 06:38:55 Test Item Value Reference Range Interpretation Comments WBC (test code = 6690-2) 7.9 See_Comment [A utomated message] The system [employer] generated this result transmitted ref erence range: 3.5 - 10 .5 K/L. The refe rence range was not u sed to interpret this result as normal/abnor mal. RBC (test code = 789-8) 2.53 See_Comment L [Au tomated message] The system [employer] generated this result transmitted ref erence range: 3.93 - 5 .22 M/L. The refe rence range was not u sed to interpret this result as normal/abnor mal. MCHC (test code = 786-4) 30.8 See_Comment L [A utomated message] The system [employer] generated this result transmitted ref erence range: [...] L [Aut omated message] 777-3) The system [employer] generated this result transmitted ref erence range: 150 - 45 0 K/CU MM. The referen ce range was not u sed to interpret this result as normal/abnor mal. MPV (test code = 10.6 fL 9.4-12.3 80490-9) nRBC (test code = 413) 0 See_Comment [Aut omated message] The system [employer] generated this result transmitted ref erence range: [...] See_Comment [Aut omated message] 670) The system [employer] generated this result transmitted ref erence range: 1.56 - 6 .13 K/L. The refe rence range was not u sed to interpret this result as normal/abnor mal. # Lymphs (test code = 0.99 See_Comment L [Auto mated message] 414) The system [employer] generated this result transmitted ref erence range: 1.18 - 3 .74 K/L. The refe rence range was not u sed to interpret this result as normal/abnor mal. # Monos (test code = 0.83 See_Comment H [Autom ated message] 415) The system [employer] generated this result transmitted ref erence range: 0.24 - 0 .36 K/L. The refe rence range was not u sed to interpret this result as normal/abnor mal. # Eos (test code = 416) 0.33 See_Comment [Au tomated message] The system [employer] generated this result transmitted ref erence range: 0.04 - 0 .36 K/L. The refe rence range was not u sed to interpret this result as normal/abnor mal. # Baso (test code = 417) 0.04 See_Comment [A utomated message] The system [employer] generated this result transmitted ref erence range: 0.01 - 0 .08 K/L. The refe rence range was not u sed to interpret this result as normal/abnor mal. Immature 1 % 0-1 Granulocytes-Relative (test code = 2801) Lab Interpretation (test Abnormal code = 56477-7) [facility] with platelet count + automated [id number] 06:38:55 Test Item Value Reference Range Interpretation Comments WBC (test code = 6690-2) 7.9 See_Comment [A utomated message] The system [employer] generated this result transmitted ref erence range: 3.5 - 10 .5 K/L. The refe rence range was not u sed to interpret this result as normal/abnor mal. RBC (test code = 789-8) 2.53 See_Comment L [Au tomated message] The system [employer] generated this result transmitted ref erence range: 3.93 - 5 .22 M/L. The refe rence range was not u sed to interpret this result as normal/abnor mal. MCHC (test code = 786-4) 30.8 See_Comment L [A utomated message] The system [employer] generated this result transmitted ref erence range: [...] L [Aut omated message] 777-3) The system [employer] generated this result transmitted ref erence range: 150 - 45 0 K/CU MM. The referen ce range was not u sed to interpret this result as normal/abnor mal. MPV (test code = 10.6 fL 9.4-12.3 01249-4) nRBC (test code = 413) 0 See_Comment [Aut omated message] The system [employer] generated this result transmitted ref erence range: [...] See_Comment [Aut omated message] 670) The system [employer] generated this result transmitted ref erence range: 1.56 - 6 .13 K/L. The refe rence range was not u sed to interpret this result as normal/abnor mal. # Lymphs (test code = 0.99 See_Comment L [Auto mated message] 414) The system [employer] generated this result transmitted ref erence range: 1.18 - 3 .74 K/L. The refe rence range was not u sed to interpret this result as normal/abnor mal. # Monos (test code = 0.83 See_Comment H [Autom ated message] 415) The system [employer] generated this result transmitted ref erence range: 0.24 - 0 .36 K/L. The refe rence range was not u sed to interpret this result as normal/abnor mal. # Eos (test code = 416) 0.33 See_Comment [Au tomated message] The system [employer] generated this result transmitted ref erence range: 0.04 - 0 .36 K/L. The refe rence range was not u sed to interpret this result as normal/abnor mal. # Baso (test code = 417) 0.04 See_Comment [A utomated message] The system [employer] generated this result transmitted ref erence range: 0.01 - 0 .08 K/L. The refe rence range was not u sed to interpret this result as normal/abnor mal. Immature 1 % 0-1 Granulocytes-Relative (test code = 2801) Lab Interpretation (test Abnormal code = 66991-5) [facility] W/PLT COUNT & AUTO [id number] 06:38:55 Test Item Value Reference Range Interpretation [...] = 2801) CBC W/PLT COUNT & AUTO [id number] 10:18:58 Test Item Value Reference Range Interpretation [...] (BEAKER) (test code = 2801) BASIC METABOLIC [id number] 08:06:00 Test Item Value Reference Range Interpretation [...] S NOT APPLICABLE FOR DIALYSIS PATIEN TS. Senior Grant Writer ID - MARLON Ferrera moderately ictericHEPATIC FUNCTION [id number] 08:06:00 Test Item Value Reference Range Interpretation [...] (test code = 19 U/L 6-55 347) Senior Grant Writer ID - MARLON Ferrera moderately ictericPROTHROMBIN TIME/[id number] 07:51:15 Test Item Value Reference Range Interpretation [...] for patients with mechanical heart valves.HEPATIC FUNCTION [id number] 07:41:30 Test Item Value Reference Range Interpretation [...] (test code = 21 U/L 6-55 347) Senior Grant Writer ID - MARLON Ferrera moderately ictericBASIC METABOLIC [id number] 07:41:29 Test Item Value Reference Range Interpretation [...] S NOT APPLICABLE FOR DIALYSIS PATIEN TS. Senior Grant Writer ID - MARLON KENTpecimekorin moderately ictericPROTHROMBIN TIME/[id number] 07:34:58 Test Item Value Reference Range Interpretation Comments PROTIME (BEAKER) 19.3 seconds 11.9-14.2 H (test code = 759) INR (BEAKER) (test 1.66 See_Comment [Automat ed message] code = 370) The system [employer] generated this result transmitted ref erence range: <=5.90. The reference range was not used to int erpret this result as normal/abnormal . RECOMMENDED COUMADIN/WARFARIN INR THERAPY RANGESSTANDARD DOSE: 2.0 - 3.0 Includes: PROPHYLAXIS for venous thrombosis, systemic embolization; TREATMENT for venous thrombosis and/or pulmonary embolus.HIGH RISK: Target INR is 2.5-3.5 for patients with mechanical heart valves.CBC W/PLT COUNT & AUTO [id number] 07:30:35 Test Item Value Reference Range Interpretation [...] PERCENT (BEAKER) (test code = 2801) VITAMIN [id number] 07:00:04 Test Item Value Reference Range Interpretation Comments VITAMIN B12 (BEAKER) (test code = > pg/mL 213-816 H 774) Senior Grant Writer GINA FRANK WBASIC METABOLIC [id number] 06:43:51 Test Item Value Reference Range Interpretation [...] S NOT APPLICABLE FOR DIALYSIS PATIEN TS. Senior Grant Writer ID - ZAC WOperator GINA MASON LSpecimen slightly ictericVITAMIN D, [id number] 05:27:33 Test Item Value Reference Range Interpretation Comments VITAMIN D 25-OH (BEAKER) (test code 4.4 ng/mL 6.6-49.9 L = 2764) Effective 05/22/2017: Reference Range ChangeNew: 6.6-49.9 ng/mL Previous: 13.0- 47.8 ng/mLRecommendedVitamin D Target Range: 30.0-40.0 ng/mLOperator ID Ajay MASON LC-REACTIVE [id number] 05:23:46 Test Item Value Reference Range Interpretation Comments C-REACTIVE PROTEIN (BEAKER) (test 1.00 mg/dL 0.00-0.50 H code = 676) Senior Grant Writer ID - ZAC [id number] 05:23:45 Test Item Value Reference Range Interpretation Comments MAGNESIUM (BEAKER) (test code = 1.6 mg/dL 1.6-2.6 627) Senior Grant Writer ID Ajay FRANK WHEPATIC FUNCTION [id number] 05:23:45 Test Item Value Reference Range Interpretation [...] (test code = 17 U/L 6-55 347) Senior Grant Writer ID - ZAC WSpecimen slightly ictericPROTHROMBIN TIME/[id number] 04:53:27 Test Item Value Reference Range Interpretation Comments PROTIME (BEAKER) 22.4 seconds 11.9-14.2 H (test code = 759) INR (BEAKER) (test 2.00 See_Comment [Automat ed message] code = 370) The system [employer] generated this result transmitted ref erence range: <=5.90. The reference range was not used to int erpret this result as normal/abnormal . RECOMMENDED COUMADIN/WARFARIN INR THERAPY RANGESSTANDARD DOSE: 2.0 - 3.0 Includes: PROPHYLAXIS for venous thrombosis, systemic embolization; TREATMENT for venous thrombosis and/or pulmonary embolus.HIGH RISK: Target INR is 2.5-3.5 for patients with mechanical heart valves.CBC W/PLT COUNT & AUTO [id number] 04:49:49 Test Item Value Reference Range Interpretation [...] (BEAKER) (test code = 2801) Basic Metabolic [id number] 08:26:03 Test Item Value Reference Range Interpretation Comments Sodium (test code = 137 meq/L 409-452 7765-2) Potassium (test code 3.5 meq/L 3.5-5.1 = 2823-3) Chloride (test code = 109 meq/L 98-107 H 2075-0) CO2 (test code = 24 meq/L 22-29 2028-9) BUN (test code = 13 mg/dL 7-21 3094-0) Creatinine (test code 0.73 mg/dL 0.57-1.25 = 2160-0) Glucose (test code = 85 mg/dL 70-105 2345-7) Calcium (test code = 7.7 mg/dL 8.4-10.2 L 90500-7) EGFR (test code = 81 mL/min/1.73 [place] [address]-6) NOT ACCURATE CREATININE CLEARANCE IN PREDICTING GLOMERULAR FILTRATION RATE . ESTIMATED GFR I S NOT APPLICABLE FOR DIALYSIS PATIENTS. REJI (test code = REJI) Senior Grant Writer ID - ELODIARADHA Nadya ID - DBSpecimen slightly icteric Lab Interpretation Abnormal (test code = 01562-1) [facility] [id number] 08:26:03 Test Item Value Reference Range Interpretation [...] S NOT APPLICABLE FOR DIALYSIS PATIEN TS. Senior Grant Writer ID - ELODIARADHA Nadya ID - DBSpecimen slightly ictericHepatic function [id number] 07:24:45 Test Item Value Reference Range Interpretation Comments Protein, Total (test 4.9 See_Comment L [Autom ated code = 2885-2) message] The system which generated this result transmitted reference range : 6.0 - 8.3 gm/dL . The reference range was not used to interpr et this result as normal/abnormal . Albumin (test code = 2.2 g/dL 3.5-5.0 L 43069-8) Total Bilirubin (test 4.0 mg/dL 0.2-1.2 H code = 1974-2) Bilirubin, Direct 1.5 mg/dL 0.1-0.5 H (test code = 1968-7) Alkaline Phosphatase 111 U/L 40-150 (test code = 6768-6) AST (test code = 53 U/L 5-34 H 1920-8) ALT (test code = 17 U/L 6-55 1742-6) REJI (test code = REJI) Senior Grant Writer ID - MARLON LSpecimen slightly icteric Lab Interpretation Abnormal (test code = 14633-8) [facility]Awbfq[facility]fnf5374-[facility] 07:24:45 Test Item Value Reference Range Interpretation Comments Magnesium (test code = 1.7 mg/dL 1.6-2.6 18343-7) REJI (test code = REJI) Senior Grant Writer ID Ajay Zapien Lab Interpretation (test Normal code = 78733-6) [facility]UM2022-[facility] 07:24:45 Test Item Value Reference Range Interpretation Comments MAGNESIUM (BEAKER) (test code = 1.7 mg/dL 1.6-2.6 627) Senior Grant Writer ID Ajay MASON LHEPATIC FUNCTION [id number] 07:24:45 Test Item Value Reference Range Interpretation [...] (test code = 17 U/L 6-55 347) Senior Grant Writer ID Ajay MASON LSpecimen slightly ictericProthrombin time/[id number] 06:40:57 Test Item Value Reference Interpretation Comments Range Protime (test code = 22.5 See_Comment H [Autom ated 1972-2) message] The system which generated this result transmitted reference range : 11.9 - 14.2 seconds. The reference range was not used to interpret this result as normal/abnormal . INR (test code = 2.01 See_Comment [Automated 3201-6) message] The system which generated this result [...] valves. Lab Interpretation Abnormal (test code = 80764-6) [facility][id number] 06:40:57 Test Item Value Reference Range Interpretation Comments PROTIME (BEAKER) 22.5 seconds 11.9-14.2 H (test code = 759) INR (BEAKER) (test 2.01 See_Comment [Automat ed message] code = 370) The system [employer] generated this result transmitted ref erence range: <=5.90. The reference range was not used to int erpret this result as normal/abnormal . RECOMMENDED COUMADIN/WARFARIN INR THERAPY RANGESSTANDARD DOSE: 2.0 - 3.0 Includes: PROPHYLAXIS for venous thrombosis, systemic embolization; TREATMENT for venous thrombosis and/or pulmonary embolus.HIGH RISK: Target INR is 2.5-3.5 for patients with mechanical heart valves.CBC with platelet count + automated [id number] 06:36:06 Test Item Value Reference Range Interpretation Comments WBC (test code = 6690-2) 10.6 See_Comment H [A utomated message] The system [employer] generated this result transmitted ref erence range: 3.5 - 10 .5 K/L. The refe rence range was not u sed to interpret this result as normal/abnor mal. RBC (test code = 789-8) 2.76 See_Comment L [Au tomated message] The system [employer] generated this result transmitted ref erence range: 3.93 - 5 .22 M/L. The refe rence range was not u sed to interpret this result as normal/abnor mal. MCHC (test code = 786-4) 31.5 See_Comment L [A utomated message] The system [employer] generated this result transmitted ref erence range: [...] L [Aut omated message] 777-3) The system [employer] generated this result transmitted ref erence range: 150 - 45 0 K/CU MM. The referen ce range was not u sed to interpret this result as normal/abnor mal. MPV (test code = 9.6 fL 9.4-12.3 18093-1) nRBC (test code = 413) 0 See_Comment [Aut omated message] The system [employer] generated this result transmitted ref erence range: [...] H [Aut omated message] 670) The system [employer] generated this result transmitted ref erence range: 1.56 - 6 .13 K/L. The refe rence range was not u sed to interpret this result as normal/abnor mal. # Lymphs (test code = 1.18 See_Comment [Auto mated message] 414) The system [employer] generated this result transmitted ref erence range: 1.18 - 3 .74 K/L. The refe rence range was not u sed to interpret this result as normal/abnor mal. # Monos (test code = 0.64 See_Comment H [Autom ated message] 415) The system [employer] generated this result transmitted ref erence range: 0.24 - 0 .36 K/L. The refe rence range was not u sed to interpret this result as normal/abnor mal. # Eos (test code = 416) 0.31 See_Comment [Au tomated message] The system [employer] generated this result transmitted ref erence range: 0.04 - 0 .36 K/L. The refe rence range was not u sed to interpret this result as normal/abnor mal. # Baso (test code = 417) 0.02 See_Comment [A utomated message] The system [employer] generated this result transmitted ref erence range: 0.01 - 0 .08 K/L. The refe rence range was not u sed to interpret this result as normal/abnor mal. Immature 1 % 0-1 Granulocytes-Relative (test code = 2801) Lab Interpretation (test Abnormal code = 99619-6) [facility] W/PLT COUNT & AUTO [id number] 06:36:06 Test Item Value Reference Range Interpretation [...] (BEAKER) (test code = 2801) BASIC METABOLIC [id number] 09:04:28 Test Item Value Reference Range Interpretation [...] S NOT APPLICABLE FOR DIALYSIS PATIEN TS. Senior Grant Writer ID - DBSpecimen moderately wuzhexiNIHAPQVDR1560-31-95 08:26:10 Test Item Value Reference Range Interpretation Comments MAGNESIUM (BEAKER) (test code = 1.8 mg/dL 1.6-2.6 627) Senior Grant Writer ID - DBHEPATIC FUNCTION [id number] 08:26:10 Test Item Value Reference Range Interpretation [...] (test code = 17 U/L 6-55 347) Senior Grant Writer ID - DBSpecimen moderately ictericPROTHROMBIN TIME/[id number] 07:14:13 Test Item Value Reference Range Interpretation Comments PROTIME (BEAKER) 23.1 seconds 11.9-14.2 H (test code = 759) INR (BEAKER) (test 2.08 See_Comment [Automat ed message] code = 370) The system [employer] generated this result transmitted ref erence range: <=5.90. The reference range was not used to int erpret this result as normal/abnormal . RECOMMENDED COUMADIN/WARFARIN INR THERAPY RANGESSTANDARD DOSE: 2.0 - 3.0 Includes: PROPHYLAXIS for venous thrombosis, systemic embolization; TREATMENT for venous thrombosis and/or pulmonary embolus.HIGH RISK: Target INR is 2.5-3.5 for patients with mechanical heart valves.CBC W/PLT COUNT & AUTO [id number] 07:07:41 Test Item Value Reference Range Interpretation [...] (BEAKER) (test code = 2801) BASIC METABOLIC [id number] 09:04:18 Test Item Value Reference Range Interpretation [...] S NOT APPLICABLE FOR DIALYSIS PATIEN TS. Senior Grant Writer ID - DBOperator ID - DBSpecimen moderately ictericHEPATIC FUNCTION [id number] 07:53:06 Test Item Value Reference Range Interpretation [...] (test code = 16 U/L 6-55 347) Senior Grant Writer ID - DBSpecimen moderately ictericManual Adkizpeaebsj4516-58-43 07:50:25 Test Item Value Reference Range Interpretation [...] Ovalocytes (test code = 1+ few 477) [place] Cells (test code = 1+ few 474) Artifact (test code = Present 3432) Platelet Conc (test code Decreased = 3438) REJI (test code = REJI) Senior Grant Writer ID - michaela balsaraUser comments: Slide comments: Lab Interpretation (test Abnormal code = 49932-6) [facility] Xeywiubgyjdb5479-00-51 07:50:25 Test Item Value Reference Range Interpretation [...] Ovalocytes (test code = 1+ few 477) [place] Cells (test code = 1+ few 474) Artifact (test code = Present 3432) Platelet Conc (test code Decreased = 3438) REJI (test code = REJI) Senior Grant Writer ID - michaela balsaraUser comments: Slide comments: Lab Interpretation (test Abnormal code = 13294-0) [facility] Yxnmsaxiphct7289-51-96 07:50:25 Test Item Value Reference Range Interpretation Comments % Neutros (test code = 96 % 2816) % Monos (test code = 2 % 2818) % Eos (test code = 2819) 1 % % Bands (test code = 1 % 0-10 2825) # Neutros (test code = 13.34 K/ul 1.56-6.13 H 2829) # Monos (test code = 0.28 K/uL [...] = 3438) REJI (test code = REJI) Senior Grant Writer ID - michaela Cutler comments: Slide comments: Lab Interpretation (test Abnormal code = 46283-6) [facility](CELLAVISION MANUAL DIFF)2021-09-09 07:50:25 Test Item Value Reference Range Interpretation Comments NEUTROPHILS - REL 96 % (CELLAVISION)(BEAKER) (test code = 2816) MONOCYTES - REL 2 % (CELLAVISION)(BEAKER) (test code = 2818) EOSINOPHILS - REL 1 % (CELLAVISION)(BEAKER) (test code = 2819) BANDS - REL (CELLAVISION)(BEAKER) 1 % 0-10 (test code = 282) NEUTROPHILS - ABS 13.34 K/ul 1.56-6.13 H [...] CONCENTRATION Decreased (CELLAVISION)(BEAKER) (test code = 3438) Senior Grant Writer ID - michaela Cutler comments: Slide comments:CBC W/PLT COUNT & AUTO [id number] 07:50:24 Test Item Value Reference Range Interpretation [...] WBC 0-0 (test code = 413) PROTHROMBIN TIME/[id number] 06:28:05 Test Item Value Reference Range Interpretation Comments PROTIME (BEAKER) 24.0 seconds 11.9-14.2 H (test code = 759) INR (BEAKER) (test 2.18 See_Comment [Automat ed message] code = 370) The system [employer] generated this result transmitted ref erence range: [...] = No growth in 5 days 6463-4) [facility] ([facility]ipuncture) 2021-09-08 14:01:01 Test Item Value Reference Range Interpretation Comments Result (test code = No growth in 5 days 6463-4) [facility] (Right Venipuncture) 2021-09-08 14:01:01 Test Item Value Reference Range Interpretation Comments Result (test code = No growth in 5 days 6463-4) [facility]BLOOD [id number] 14:01:01 Test Item Value Reference Range Interpretation Comments CULTURE (BEAKER) (test No growth in 5 days code = 1095) Wxeehih1141-95-68 11:09:32 Test Item Value Reference Range Interpretation Comments Ammonia (test code = 35 See_Comment [Autom ated 87774-6) message] The system which generated this result transmit barron reference range : 18 - 72 mol/L . The reference range was not u sed to interpret th is result as normal/abnormal . REJI (test code = REJI) Senior Grant Writer ID - PIAYA L Lab Interpretation Normal (test code = 69025-4) [facility] 11:09:32 Test Item Value Reference Range Interpretation Comments Ammonia (test code = 35 See_Comment [Autom ated 83896-0) message] The system which generated this result transmit barron reference range : 18 - 72 mol/L . The reference range was not u sed to interpret th is result as normal/abnormal . REJI (test code = REJI) Senior Grant Writer ID - MARLON L Lab Interpretation Normal (test code = 08991-7) [facility]2022-01-28 11:09:32 Test Item Value Reference Range Interpretation Comments Ammonia (test code = 35 See_Comment [Autom ated 30018-1) message] The system which generated this result transmit barron reference range : 18 - 72 mol/L . The reference range was not u sed to interpret th is result as normal/abnormal . REJI (test code = REJI) Senior Grant Writer ID - MARLON L Lab Interpretation Normal (test code = 78559-6) [facility]2022-01-28 11:09:32 Test Item Value Reference Range Interpretation Comments AMMONIA (BEAKER) (test code = 348) 35 mol/L 18-72 Senior Grant Writer ID - MARLON LCBC W/PLT COUNT & AUTO [id number] 07:57:44 Test Item Value Reference Range Interpretation [...] CONCENTRATION Decreased (CELLAVISION)(BEAKER) (test code = 3438) Senior Grant Writer ID Aajy Ferguson comments: Slide comments:BASIC METABOLIC [id number] 06:46:23 Test Item Value Reference Range Interpretation [...] S NOT APPLICABLE FOR DIALYSIS PATIEN TS. Senior Grant Writer ID - ZAC WSpecimen slightly foxdtmaTatikdyfjg1765-44-55 06:42:47 Test Item Value Reference Range Interpretation Comments Phosphorus (test code = 2.4 mg/dL 2.3-4.7 2777-1) REJI (test code = REJI) Senior Grant Writer ID Ajay FRANK W Lab Interpretation (test Normal code = 50187-6) [facility] 06:42:47 Test Item Value Reference Range Interpretation Comments Phosphorus (test code = 2.4 mg/dL 2.3-4.7 2777-1) REJI (test code = REJI) Senior Grant Writer ID Ajay FRANK W Lab Interpretation (test Normal code = 22269-0) [facility]2022-[facility] 06:42:47 Test Item Value Reference Range Interpretation Comments Phosphorus (test code = 2.4 mg/dL 2.3-4.7 2777-1) REJI (test code = REJI) Senior Grant Writer ID Ajay FRANK W Lab Interpretation (test Normal code = 26416-5) [facility]US2022-[facility]-28 06:42:47 Test Item Value Reference Range Interpretation Comments PHOSPHORUS (BEAKER) (test code = 2.4 mg/dL 2.3-4.7 604) Senior Grant Writer GINA FRANK WHEPATIC FUNCTION [id number] 06:42:47 Test Item Value Reference Range Interpretation [...] (test code = 15 U/L 6-55 347) Senior Grant Writer ID Ajay FRANK WSpecimen slightly ictericPROTHROMBIN TIME/[id number] 05:37:24 Test Item Value Reference Range Interpretation Comments PROTIME (BEAKER) 26.6 seconds 11.9-14.2 H (test code = 759) INR (BEAKER) (test 2.48 See_Comment [Automat ed message] code = 370) The system [employer] generated this result transmitted ref erence range: [...] CONCENTRATION Decreased (CELLAVISION)(BEAKER) (test code = 3438) Senior Grant Writer ID - Cindy Gibson comments: Slide comments:CBC W/PLT COUNT & AUTO [id number] 09:40:43 Test Item Value Reference Range Interpretation [...] 0-0 (test code = 413) BASIC METABOLIC [id number] 07:22:45 Test Item Value Reference Range Interpretation [...] S NOT APPLICABLE FOR DIALYSIS PATIEN TS. Senior Grant Writer ID - PIAYA LSpecimen slightly yvmljblCPENXPHCQG9148-64-98 07:16:27 Test Item Value Reference Range Interpretation Comments PHOSPHORUS (BEAKER) (test code = 2.2 mg/dL 2.3-4.7 L 604) Senior Grant Writer ID - PIAYA LHEPATIC FUNCTION [id number] 07:16:27 Test Item Value Reference Range Interpretation [...] (test code = 17 U/L 6-55 347) Senior Grant Writer ID - MARLON LSpecimen slightly ictericBLOOD [id number] 07:00:33 Test Item Value Reference Range Interpretation Comments CULTURE (BEAKER) (test No growth in 5 days code = 1095) PROTHROMBIN TIME/[id number] 06:15:38 Test Item Value Reference Range Interpretation Comments PROTIME (BEAKER) 25.1 seconds 11.9-14.2 H (test code = 759) INR (BEAKER) (test 2.31 See_Comment [Automat ed message] code = 370) The system [employer] generated this result transmitted ref erence range: <=5.90. The reference range was not used to int erpret this result as normal/abnormal . RECOMMENDED COUMADIN/WARFARIN INR THERAPY RANGESSTANDARD DOSE: 2.0 - 3.0 Includes: PROPHYLAXIS for venous thrombosis, systemic embolization; TREATMENT for venous thrombosis and/or pulmonary embolus.HIGH RISK: Target INR is 2.5-3.5 for patients with mechanical heart valves.Ova and Parasite Odpscxmzuwc1960-16-38 08:26:13 Test Item Value Reference Range Interpretation Comments O&P Direct Smear (test No ova or parasites No ova or code = 08339-8) seen parasites seen REJI (test code = REJI) See scanned report Lab Interpretation (test Normal code = 69805-0) [facility]as[facility] Vxqbqlnxvuc5611-05-53 08:26:13 Test Item Value Reference Range Interpretation Comments O&P Direct Smear (test No ova or parasites No ova or code = 32339-9) seen parasites seen REJI (test code = REJI) See scanned report Lab Interpretation (test Normal code = 28974-2) [facility] Xfpkoodscgq1458-44-28 08:26:13 Test Item Value Reference Range Interpretation Comments O&P Direct Smear (test No ova or parasites No ova or code = 36577-6) seen parasites seen REJI (test code = REJI) See scanned report Lab Interpretation (test Normal code = 18419-3) [facility]2022-[facility]-26 07:29:32 Test Item Value Reference Range Interpretation Comments PHOSPHORUS (BEAKER) (test code = 1.5 mg/dL 2.3-4.7 LL 604) Senior Grant Writer ID - ZAC WBASIC METABOLIC [id number] 07:09:27 Test Item Value Reference Range Interpretation [...] S NOT APPLICABLE FOR DIALYSIS PATIEN TS. Senior Grant Writer ID - ZAC WSpecimen slightly ictericPROTHROMBIN TIME/[id number] 06:57:19 Test Item Value Reference Range Interpretation Comments PROTIME (BEAKER) 23.2 seconds 11.9-14.2 H (test code = 759) INR (BEAKER) (test 2.09 See_Comment [Automat ed message] code = 370) The system [employer] generated this result transmitted ref erence range: [...] K/uL 0.00-0.00 H (CELLAVISION)(BEAKER) (test code = 3388) TOTAL COUNTED (BEAKER) (test code 100 = [...] CONCENTRATION Decreased (CELLAVISION)(BEAKER) (test code = 3438) Senior Grant Writer ID - nabil Julian comments: Slide comments:IZGGKPJWSX2124-78-09 15:08:54 Test Item Value Reference Range Interpretation Comments PHOSPHORUS (BEAKER) (test code = 1.2 mg/dL 2.3-4.7 LL 604) Senior Grant Writer ID - BSBASIC METABOLIC [id number] 15:04:30 Test Item Value Reference Range Interpretation [...] S NOT APPLICABLE FOR DIALYSIS PATIEN TS. Senior Grant Writer ID - BSSpecimen slightly ictericHEPATIC FUNCTION [id number] 15:02:35 Test Item Value Reference Range Interpretation [...] (test code = 17 U/L 6-55 347) Senior Grant Writer ID - BSSpecimen slightly ictericPROTHROMBIN TIME/[id number] 14:50:10 Test Item Value Reference Range Interpretation Comments PROTIME (BEAKER) 24.9 seconds 11.9-14.2 H (test code = 759) INR (BEAKER) (test 2.28 See_Comment [Automat ed message] code = 370) The system [employer] generated this result transmitted ref erence range: <=5.90. The reference range was not used to int erpret this result as normal/abnormal . RECOMMENDED COUMADIN/WARFARIN INR THERAPY RANGESSTANDARD DOSE: 2.0 - 3.0 Includes: PROPHYLAXIS for venous thrombosis, systemic embolization; TREATMENT for venous thrombosis and/or pulmonary embolus.HIGH RISK: Target INR is 2.5-3.5 for patients with mechanical heart valves.CBC W/PLT COUNT & AUTO NSFDDPJGVZNW8067-12-31 14:44:53 Test Item Value Reference Range Interpretation [...] 0-0 (test code = 413) Clostridium difficile [facility] Bbqsv0084-42-97 21:23:26 Test Item Value Reference Range Interpretation Comments C. Difficle Toxin Positive Negative A (test code = 1184125684) C. Difficile GDH Positive Negative A Confirms Antigen (test code = Clostri dium 7982783477) difficile-assoc ia barron infection.First line therapy - [...] use. Lab Interpretation Abnormal (test code = 78991-2) [facility] Hospital[facility]ost[facility] difficile GDH [id number] 21:23:26 Test Item Value Reference Range Interpretation Comments C. Difficle Toxin Positive Negative A (test code = 6956583056) C. Difficile GDH Positive Negative A Confirms Antigen (test code = Clostri dium 2720720195) difficile-assoc ia barron infection.First line therapy - [...] use. Lab Interpretation Abnormal (test code = 03365-4) [facility] HospitalClostridium difficile GDH Tjbyq0163-73-30 21:23:26 Test Item Value Reference Range Interpretation Comments C. Difficle Toxin Positive Negative A (test code = 5254548186) C. Difficile GDH Positive Negative A Confirms Antigen (test code = Clostri dium 7768445296) difficile-assoc ia barron infection.First line therapy - [...] use. Lab Interpretation Abnormal (test code = 88677-2) [facility]. DIFFICILE GDH [id number] 21:23:26 Test Item Value Reference Range Interpretation Comments CDT TOXIN (test code Positive Negative A = 5636334761) CDT GDH ANTIGEN Positive Negative A Confirms Maria Esther stridium (test code = difficile-assoc iated 2830265726) infection.First line therapy - oral Vancomycin. Con tinue enteric isolati on until 72 hours after treatment is discontinued and symptoms have r esolved. Testing performed by [employer] Rapid Cassette Assay. For GDH, published sensitivity of the assay is 98.7% compared to cytotoxicity testing. For Toxin AB, published sensitivity is 87.8% and specificity 99.4% compared to cytotoxicity testing.Verification of kit performance was done by the [facility] MicrobiologyLab prior to clinical use.CT, CHEST, WITH [id number] 10:14:00Unlisted Reason for Exam - Click Yes and Enter Reason Below->No [facility] 1960 Sex: [...] spleen. Small volume ascites. Signed: Quentin Sims [facility] Verified Date/Time: 09/04/2021 10:14:08 [facility], RDGAWOV1503-12-34 10:14:00Unlisted Reason for Exam - Click Yes and Enter Reason Below->No Is this for enterography?->YesWill this procedure require oral contrast?->Yes [facility] 1960 Sex: FFINAL [...] CONCENTRATION Decreased (CELLAVISION)(BEAKER) (test code = 3438) Senior Grant Writer ID - michaela Cutler comments: Slide comments:CBC W/PLT COUNT & AUTO [id number] 07:25:32 Test Item Value Reference Range Interpretation [...] /100 WBC 0-0 (test code = 413) [id number] 06:26:19 Test Item Value Reference Range Interpretation Comments PHOSPHORUS (BEAKER) (test code = 1.5 mg/dL 2.3-4.7 LL 604) Senior Grant Writer ID Ajay FRANK WComprehensive metabolic [id number] 06:18:30 Test Item Value Reference Range Interpretation Comments Protein, Total (test 4.7 See_Comment L [Autom ated code = 2885-2) message] The system which generated this result transmitted reference range : 6.0 - 8.3 gm/dL . The reference range was not used to interpr et this result as normal/abnormal . Albumin (test code = 2.7 g/dL 3.5-5.0 L 73908-2) Alkaline Phosphatase 85 U/L 40-150 (test code [...] (test code = 7.3 mg/dL 8.4-10.2 L 14431-0) AST (test code = 28 U/L 5-34 1920-8) ALT (test code = 14 U/L 6-55 1742-6) EGFR (test code = 53 mL/min/1.73 [place] [address]-1) NOT ACCURATE CREATININE CLEARANCE IN PREDICTING GLOMERULAR FILTRATION RATE . ESTIMATED GFR I S NOT APPLICABLE FOR DIALYSIS PATIENTS. REJI (test code = REJI) Senior Grant Writer ID - ZAC WSpecimen slightly icteric Lab Interpretation Abnormal (test code = 42356-9) [facility] [id number] 06:18:30 Test Item Value Reference Range Interpretation Comments Protein, Total (test 4.7 See_Comment L [Autom ated code = 2885-2) message] The system which generated this result transmitted reference range : 6.0 - 8.3 gm/dL . The reference range was not used to interpr et this result as normal/abnormal . Albumin (test code = 2.7 g/dL 3.5-5.0 L 67298-2) Alkaline Phosphatase 85 U/L 40-150 (test code [...] (test code = 7.3 mg/dL 8.4-10.2 L 10253-4) AST (test code = 28 U/L 0-8) ALT (test code = 14 U/L 1741-6) EGFR (test code = 53 mL/min/1.[place] [address]-3) NOT ACCURATE CREATININE CLEARANCE IN PREDICTING GLOMERULAR FILTRATION RATE . ESTIMATED GFR I S NOT APPLICABLE FOR DIALYSIS PATIENTS. REJI (test code = REJI) Senior Grant Writer ID - ZAC Rosales slightly icteric Lab Interpretation Abnormal (test code = 71202-2) [facility] tmcgs5188-08-45 06:18:30 Test Item Value Reference Range Interpretation Comments Protein, Total (test 4.7 See_Comment L [Autom ated code = 2885-2) message] The system which generated this result transmitted reference range : 6.0 - 8.3 gm/dL . The reference range was not used to interpr et this result as normal/abnormal . Albumin (test code = 2.7 g/dL 3.5-5.0 L 90421-2) Alkaline Phosphatase 85 U/L 40-150 (test code [...] (test code = 7.3 mg/dL 8.4-10.2 L 89877-5) AST (test code = 28 U/L 1919-8) ALT (test code = 14 U/L 1741-6) EGFR (test code = 53 mL/min/1.[place] [address]-3) NOT ACCURATE CREATININE CLEARANCE IN PREDICTING GLOMERULAR FILTRATION RATE . ESTIMATED GFR I S NOT APPLICABLE FOR DIALYSIS PATIENTS. REJI (test code = REJI) Senior Grant Writer ID - ZAC Rosales slightly icteric Lab Interpretation Abnormal (test code = 49063-1) [facility] HospitalCOMPREHENSIVE METABOLIC [id number] 06:18:30 Test Item Value Reference Range Interpretation [...] S NOT APPLICABLE FOR DIALYSIS PATIEN TS. Senior Grant Writer ID - ZAC Rosales slightly egipbgfRTECSLOXY8455-51-22 06:13:05 Test Item Value Reference Range Interpretation Comments MAGNESIUM (BEAKER) (test code = 2.3 mg/dL 1.6-2.6 627) Senior Grant Writer ID - ZAC Neal(CELLAVISION MANUAL DIFF)2021-09-03 14:33:56 Test Item Value Reference [...] CONCENTRATION Decreased (CELLAVISION)(BEAKER) (test code = 3438) Senior Grant Writer ID - Claudine Rios comments: Slide comments:CBC W/PLT COUNT & AUTO OYQOISCKLPNY3866-02-55 14:33:55 Test Item Value Reference Range Interpretation [...] (test code = 413) Hepatitis B surface zvdfrjrz9057-22-43 13:30:11 Test Item Value Reference Range Interpretation Comments Hep B S Ab (test code <8.0 See_Comment [Auto mated = 11235-6) message] The system which generated this result transmit barron reference range : <8.0 mIU/mL. Th e reference range was not used to interpret this result as normal/abnormal . REJI (test code = REJI) Senior Grant Writer ID - PIAYA L Lab Interpretation Normal (test code = 72438-2) [facility] B surface ccryfviu2476-01-55 13:30:11 Test Item Value Reference Range Interpretation Comments Hep B S Ab (test code <8.0 See_Comment [Auto mated = 92382-0) message] The system which generated this result transmit barron reference range : <8.0 mIU/mL. Th e reference range was not used to interpret this result as normal/abnormal . REJI (test code = REJI) Senior Grant Writer ID - PIAYA L Lab Interpretation Normal (test code = 41485-6) [facility] surface [id number] 13:30:11 Test Item Value Reference Range Interpretation Comments Hep B S Ab (test code <8.0 See_Comment [Auto mated = 75142-6) message] The system which generated this result transmit barron reference range : <8.0 mIU/mL. Th e reference range was not used to interpret this result as normal/abnormal . REJI (test code = REJI) Senior Grant Writer ID - PIRADHA L Lab Interpretation Normal (test code = 58701-7) [facility] SUR[facility] [id number] 13:30:11 Test Item Value Reference Range Interpretation Comments HEPATITIS B SURFACE ANTIBODY < mIU/mL <8.0 (BEAKER) (test code = 647) Senior Grant Writer ID - MARLON LHepatitis A antibody, [id number] 13:23:53 Test Item Value Reference Range Interpretation Comments Hep A IgG (test code = Nonreactive Nonreactive 18621-9) REJI (test code = REJI) Senior Grant Writer ID - MARLON L Lab Interpretation (test Normal code = 74303-2) [facility] A antibody, [id number] 13:23:53 Test Item Value Reference Range Interpretation Comments Hep A IgG (test code = Nonreactive Nonreactive 64083-8) REJI (test code = REJI) Senior Grant Writer ID - PIRADHA L Lab Interpretation (test Normal code = 15658-7) [facility] A antibody, [id number] 13:23:53 Test Item Value Reference Range Interpretation Comments Hep A IgG (test code = Nonreactive Nonreactive 84179-1) REJI (test code = REJI) Senior Grant Writer ID - PIRADHA L Lab Interpretation (test Normal code = 80027-2) [facility] ANTIBODY, [id number] 13:23:53 Test Item Value Reference Range Interpretation Comments HEPATITIS A IGG ANTIBODY (BEAKER) Nonreactive Nonreactive (test code = 2797) Senior Grant Writer ID - MARLON LHepatitis B core antibody, [id number] 13:23:52 Test Item Value Reference Range Interpretation Comments Hep B Core Total Ab Nonreactive Nonreactive (test code = 36641-6) REJI (test code = REJI) Senior Grant Writer ID - PIRADHA L Lab Interpretation (test Normal code = 31913-4) [facility] [id number] 13:23:52 Test Item Value Reference Range Interpretation Comments Hepatitis C Ab (test Nonreactive Nonreactive code = 13455-7) REJI (test code = REJI) Senior Grant Writer ID - MARLON L Lab Interpretation (test Normal code = 09693-4) [facility] B core antibody, [id number] 13:23:52 Test Item Value Reference Range Interpretation Comments Hep B Core Total Ab Nonreactive Nonreactive (test code = 93529-9) REJI (test code = REJI) Senior Grant Writer ID - MARLON L Lab Interpretation (test Normal code = 88326-6) [facility] B core antibody, [id number] 13:23:52 Test Item Value Reference Range Interpretation Comments Hep B Core Total Ab Nonreactive Nonreactive (test code = 91795-1) REJI (test code = REJI) Senior Grant Writer ID - MARLON L Lab Interpretation (test Normal code = 72068-3) [facility] [id number] 13:23:52 Test Item Value Reference Range Interpretation Comments HEPATITIS C ANTIBODY (BEAKER) Nonreactive Nonreactive (test code = 367) Senior Grant Writer ID Ajay MASON LHEPATITIS B CORE ANTIBODY, [id number] 13:23:52 Test Item Value Reference Range Interpretation Comments HEPATITIS B CORE TOTAL ANTIBODY Nonreactive Nonreactive (BEAKER) (test code = 497) Senior Grant Writer ID - MARLON LHepatitis B surface [id number] 13:23:51 Test Item Value Reference Range Interpretation Comments HBsAg Screen (test code Nonreactive Nonreactive = 5195-3) REJI (test code = REJI) Specimen is considered negative for HBsAg. Lab Interpretation (test Normal code = 10426-5) [facility] B SURFACE [id number] 13:23:51 Test Item Value Reference Range Interpretation [...] S NOT APPLICABLE FOR DIALYSIS PATIEN TS. Senior Grant Writer ID - MARLON LSpecimen slightly [id number] 12:58:51 Test Item Value Reference Range Interpretation Comments MAGNESIUM (BEAKER) (test code = 2.1 mg/dL 1.6-2.6 627) Senior Grant Writer ID - MARLON [id number] 12:58:51 Test Item Value Reference Range Interpretation Comments PHOSPHORUS (BEAKER) (test code = 2.3 mg/dL 2.3-4.7 604) Senior Grant Writer ID - MARLON LPROTHROMBIN TIME/[id number] 12:56:09 Test Item Value Reference Range Interpretation Comments PROTIME (BEAKER) 23.4 seconds 11.9-14.2 H (test code = 759) INR (BEAKER) (test 2.10 See_Comment [Automat ed message] code = 370) The system [employer] generated this result transmitted ref erence range: <=5.90. The reference range was not used to int erpret this result as normal/abnormal . RECOMMENDED COUMADIN/WARFARIN INR THERAPY RANGESSTANDARD DOSE: 2.0 - 3.0 Includes: PROPHYLAXIS for venous thrombosis, systemic embolization; TREATMENT for venous thrombosis and/or pulmonary embolus.HIGH RISK: Target INR is 2.5-3.5 for patients with mechanical heart valves.Urine [id number] 12:15:06 Test Item Value Reference Range Interpretation Comments Result (test code = 6463-4) [facility] [id number] 12:15:06 Test Item Value Reference Range Interpretation Comments Result (test code = 6463-4) No growth [facility] [id number] 12:15:06 Test Item Value Reference Range Interpretation Comments Result (test code = 6463-4) No growth [facility] Path[facility] Profile by PCR -ID [id number] 12:43:22 Test Item Value Reference Range Interpretation Comments CAMPYLOBACTER (PCR) Not detected Not detected (test code = 70626-1) PLESIOMONAS SHIGELLOIDES Not detected Not detected (PCR) (test code = 76122-1) SALMONELLA (PCR) (test Not detected Not detected code = 82984-8) YERSINIA ENTEROCOLITICA Not detected Not detected (PCR) (test code = 16191-7) VIBRIO CHOLERAE (PCR) Not detected Not detected (test code = 42539-2) ENTEROAGGREGATIVE E. Not detected Not detected COLI (EAEC) BY PCR (test code = 95097-8) ENTEROPATHOGENIC E. COLI Not detected Not detected (EPEC) BY PCR (test code = 17621-5) ENTEROTOXIGENIC E. COLI Not detected Not detected (ETEC) LT/ST BY PCR (test code = 21092-3) SHIGA-LIKE Not detected Not detected TOXIN-PRODUCING E. COLI (STEC) STX1/STX2 (test code = 51199-0) E. COLI O157 (PCR) (test code = 11180-0) SHIGELLA/ENTEROINVASIVE Not detected Not detected E. COLI (EIEC) BY PCR (test code = 33568-4) CRYPTOSPORIDIUM (PCR) Not detected Not detected (test code = 28377-3) CYCLOSPORA CAYETANENSIS Not detected Not detected (PCR) (test code = 29336-4) ENTAMOEBA HISTOLYTICA Not detected Not detected (PCR) (test code = 12534-2) GIARDIA LAMBLIA (PCR) Not detected Not detected (test code = 93991-0) ADENOVIRUS F 40/41 (PCR) Not detected Not detected (test code = 28550-1) ASTROVIRUS (PCR) (test Not detected Not detected code = 43666-5) NOROVIRUS GI/GII (PCR) Not detected Not detected (test code = 57873-9) ROTAVIRUS A (PCR) (test Not detected Not detected code = 93609-4) SAPOVIRUS (I, II, IV, V) Not detected Not detected BY PCR (test code = 28699-6) VIBRIO Not detected Not detected (PARAHAEMOLYTICUS, VULNIFICUS) (test code = 17961-3) REJI (test code = REJI) Other viruses, [...] [facility] Molecular Diagnostics Laboratory using the Transifex Gastrointestinal Panel. It is FDA cleared and has been verified and approved by the [facility] Molecular Diagnostics Laboratory for clinical use. This laboratory is CLIA-certified and [employer] ([employer])-accredited to perform high complexity testing. [facility] -ID [id number] 12:43:22 Test Item Value Reference Range Interpretation Comments CAMPYLOBACTER PCR (test Not detected Not detected code = 32914-3) PLESIOMONAS SHIGELLOIDES Not detected Not detected (PCR) (test code = 33904-0) SALMONELLA (PCR) (test Not detected Not detected code = 53322-7) YERSINIA ENTEROCOLITICA Not detected Not detected (PCR) (test code = 15543-6) VIBRIO CHOLERAE (PCR) Not detected Not detected (test code = 48399-7) ENTEROAGGREGATIVE E. Not detected Not detected COLI (EAEC) BY PCR (test code = 17140-0) ENTEROPATHOGENIC E. COLI Not detected Not detected (EPEC) BY PCR (test code = 02461-0) ENTEROTOXIGENIC E. COLI Not detected Not detected (ETEC) LT/ST BY PCR (test code = 67636-0) SHIGA-LIKE Not detected Not detected TOXIN-PRODUCING E. COLI (STEC) STX1/STX2 (test code = 06838-3) E. COLI O157 (PCR) (test code = 65995-7) SHIGELLA/ENTEROINVASIVE Not detected Not detected E. COLI (EIEC) BY PCR (test code = 40596-9) CRYPTOSPORIDIUM (PCR) Not detected Not detected (test code = 73833-5) CYCLOSPORA CAYETANENSIS Not detected Not detected (PCR) (test code = 57030-3) ENTAMOEBA HISTOLYTICA Not detected Not detected (PCR) (test code = 91009-9) GIARDIA LAMBLIA (PCR) Not detected Not detected (test code = 46877-5) ADENOVIRUS F 40/41 (PCR) Not detected Not detected (test code = 64680-3) ASTROVIRUS (PCR) (test Not detected Not detected code = 70442-1) NOROVIRUS GI/GII (PCR) Not detected Not detected (test code = 91475-1) ROTAVIRUS A (PCR) (test Not detected Not detected code = 99125-9) SAPOVIRUS (I, II, IV, V) Not detected Not detected BY PCR (test code = 37568-0) VIBRIO Not detected Not detected (PARAHAEMOLYTICUS, VULNIFICUS) (test code = 12804-8) REJI (test code = REJI) Other viruses, [...] [facility] Molecular Diagnostics Laboratory using the MailcloudArray Gastrointestinal Panel. It is FDA cleared and has been verified and approved by the [facility] Molecular Diagnostics Laboratory for clinical use. This laboratory is CLIA-certified and [employer] ([employer])-accredited to perform high complexity testing. [facility] -ID [id number] 12:43:22 Test Item Value Reference Range Interpretation Comments CAMPYLOBACTER PCR (test Not detected Not detected code = 16381-7) PLESIOMONAS SHIGELLOIDES Not detected Not detected (PCR) (test code = 17579-0) SALMONELLA (PCR) (test Not detected Not detected code = 89311-8) YERSINIA ENTEROCOLITICA Not detected Not detected (PCR) (test code = 00419-9) VIBRIO CHOLERAE (PCR) Not detected Not detected (test code = 09862-9) ENTEROAGGREGATIVE E. Not detected Not detected COLI (EAEC) BY PCR (test code = 15594-7) ENTEROPATHOGENIC E. COLI Not detected Not detected (EPEC) BY PCR (test code = 61946-1) ENTEROTOXIGENIC E. COLI Not detected Not detected (ETEC) LT/ST BY PCR (test code = 49640-9) SHIGA-LIKE Not detected Not detected TOXIN-PRODUCING E. COLI (STEC) STX1/STX2 (test code = 69382-4) E. COLI O157 (PCR) (test code = 91624-4) SHIGELLA/ENTEROINVASIVE Not detected Not detected E. COLI (EIEC) BY PCR (test code = 04995-5) CRYPTOSPORIDIUM (PCR) Not detected Not detected (test code = 14692-6) CYCLOSPORA CAYETANENSIS Not detected Not detected (PCR) (test code = 43368-1) ENTAMOEBA HISTOLYTICA Not detected Not detected (PCR) (test code = 09794-6) GIARDIA LAMBLIA (PCR) Not detected Not detected (test code = 11773-3) ADENOVIRUS F 40/41 (PCR) Not detected Not detected (test code = 16601-2) ASTROVIRUS (PCR) (test Not detected Not detected code = 07985-6) NOROVIRUS GI/GII (PCR) Not detected Not detected (test code = 92793-8) ROTAVIRUS A (PCR) (test Not detected Not detected code = 50865-9) SAPOVIRUS (I, II, IV, V) Not detected Not detected BY PCR (test code = 63255-8) VIBRIO Not detected Not detected (PARAHAEMOLYTICUS, VULNIFICUS) (test code = 19643-4) REJI (test code = REJI) Other viruses, [...] [facility] Molecular Diagnostics Laboratory using the MailcloudArray Gastrointestinal Panel. It is FDA cleared and has been verified and approved by the [facility] Molecular Diagnostics Laboratory for clinical use. This laboratory is CLIA-certified and [employer] ([employer])-accredited to perform high complexity testing. [facility] BY [id number] 12:43:22 Test Item Value Reference Range Interpretation [...] Not detected BY PCR (test code = 7332245) ENTEROPATHOGENIC E. COLI (EPEC) Not detected Not detected BY PCR (test code = 6318752) ENTEROTOXIGENIC E. COLI (ETEC) Not detected Not detected LT/ST BY PCR (test code = 4706223) SHIGA-LIKE TOXIN-PRODUCING E. Not detected Not detected COLI (STEC) STX1/STX2 (test code = 9637525) E. COLI O157 (PCR) (test code = 2055307) SHIGELLA/ENTEROINVASIVE E. COLI Not detected Not detected (EIEC) BY PCR (test code = 2049685) CRYPTOSPORIDIUM (PCR) (test code Not detected Not detected = 20160320) CYCLOSPORA CAYETANENSIS (PCR) Not detected Not detected (test code = ) ENTAMOEBA HISTOLYTICA (PCR) Not detected Not detected (test code = 20160412) GIARDIA LAMBLIA (PCR) (test code Not detected Not detected = 20160413) ADENOVIRUS F 40/41 (PCR) (test Not detected Not detected code = 20160414) ASTROVIRUS (PCR) (test code = Not detected Not detected 20160415) NOROVIRUS GI/GII (PCR) (test Not detected Not detected code = 7085162) ROTAVIRUS A (PCR) (test code = Not detected Not detected 20160417) SAPOVIRUS (I, II, IV, V) BY PCR Not detected Not detected (test code = 1078668) VIBRIO (PARAHAEMOLYTICUS, Not detected Not detected VULNIFICUS) (test code = 4619274) Other viruses, parasites and bacteria not targeted [...] [facility] Molecular Diagnostics Laboratory using the Transifex Gastrointestinal Panel. It is FDA cleared and [...] CONCENTRATION Decreased (CELLAVISION)(BEAKER) (test code = 3438) Senior Grant Writer ID - Phyllis comments: Slide comments:CBC W/PLT COUNT & AUTO [id number] 08:49:57 Test Item Value Reference Range Interpretation [...] (test code = 413) Vitamin B12 and [id number] 07:20:11 Test Item Value Reference Range Interpretation Comments Vitamin B12 (test 1116 pg/mL 213-816 H code = 2132-9) Folate (test code = 3.50 ng/mL See_Comment L [Automa barron 2284-8) message] The system which generated this result transmit barron reference range : >=7.00. The reference range was not used to interpret this result as normal/abnormal . REJI (test code = REJI) Senior Grant Writer ID - SHAQUILLE Reynolds Lab Interpretation Abnormal (test code = 60011-2) [facility] [id number] 07:20:11 Test Item Value Reference Range Interpretation Comments Vitamin B12 (test 1116 pg/mL 213-816 H code = 2132-9) Folate (test code = 3.50 ng/mL See_Comment L [Automa barron 2284-8) message] The system which generated this result transmit barron reference range : >=7.00. The reference range was not used to interpret this result as normal/abnormal . REJI (test code = REJI) Senior Grant Writer ID - SHAQUILLE Reynolds Lab Interpretation Abnormal (test code = 11710-3) [facility] and [id number] 07:20:11 Test Item Value Reference Range Interpretation Comments Vitamin B12 (test 1116 pg/mL 213-816 H code = 2132-9) Folate (test code = 3.50 ng/mL See_Comment L [Automa barron 2284-8) message] The system which generated this result transmit barron reference range : >=7.00. The reference range was not used to interpret this result as normal/abnormal . REJI (test code = REJI) Senior Grant Writer ID - SHAQUILLE Reynolds Lab Interpretation Abnormal (test code = 98073-5) [facility] AND [id number] 07:20:11 Test Item Value Reference Range Interpretation Comments VITAMIN B12 (BEAKER) 1116 pg/mL 213-816 H (test code = 774) FOLATE (BEAKER) 3.50 ng/mL See_Comment L [Automated message] (test code = 362) The system which generated this result transmitted ref erence range: >=7.00. The reference range was not used to interpr et this result as normal/abnormal . Senior Grant Writer ID - SHAQUILLE MCOMPREHENSIVE METABOLIC [id number] 06:57:06 Test Item Value Reference Range Interpretation [...] S NOT APPLICABLE FOR DIALYSIS PATIEN TS. Senior Grant Writer ID - SHAQUILLE MSpecimen slightly ictericC-Reactive [id number] 06:55:26 Test Item Value Reference Range Interpretation Comments CRP (test code = 676) 4.64 mg/dL 0.00-0.50 H REJI (test code = REJI) Senior Grant Writer ID Ajay CORBIN M Lab Interpretation (test Abnormal code = 94136-6) [facility] 06:55:26 Test Item Value Reference Range Interpretation Comments PHOSPHORUS (BEAKER) (test code = 1.8 mg/dL 2.3-4.7 L 604) Senior Grant Writer ID - SHAQUILLE MC-REACTIVE [id number] 06:55:26 Test Item Value Reference Range Interpretation Comments C-REACTIVE PROTEIN (BEAKER) (test 4.64 mg/dL 0.00-0.50 H code = 676) Senior Grant Writer ID - SHAQUILLE [id number] 06:55:25 Test Item Value Reference Range Interpretation Comments MAGNESIUM (BEAKER) (test code = 2.3 mg/dL 1.6-2.6 627) Senior Grant Writer ID - SHAQUILLE Corina, TIBC, % sat. (without ferritin)2021-09-02 06:44:00 Test Item Value Reference Range Interpretation Comments Iron (test code = 2498-4) 28.0 ug/dL 40.0-160.0 L TIBC (test code = 2500-7) 243 ug/dL 250-450 L Iron % Saturation (test 12 % 20-55 L code = 2502-3) REJI (test code = REJI) Senior Grant Writer ID - SHAQUILLE Reynolds Lab Interpretation (test Abnormal code = 80513-6) [facility], TIBC, % sat. (without ferritin)2021-09-02 06:44:00 Test Item Value Reference Range Interpretation Comments Iron (test code = 2498-4) 28.0 ug/dL 40.0-160.0 L TIBC (test code = 2500-7) 243 ug/dL 250-450 L Iron % Saturation (test 12 % 20-55 L code = 2502-3) REJI (test code = REJI) Senior Grant Writer ID - SHAQUILLE Reynolds Lab Interpretation (test Abnormal code = 45633-4) [facility], TIBC, % sat. (without ferritin)2021-09-02 06:44:00 Test Item Value Reference Range Interpretation Comments Iron (test code = 2498-4) 28.0 ug/dL 40.0-160.0 L TIBC (test code = 2500-7) 243 ug/dL 250-450 L Iron % Saturation (test 12 % 20-55 L code = 2502-3) REJI (test code = REJI) Senior Grant Writer ID - SHAQUILLE Reynolds Lab Interpretation (test Abnormal code = 98013-4) [facility], TIBC, % SAT. (WITHOUT FERRITIN)2021-09-02 06:44:00 Test Item Value Reference Range Interpretation Comments IRON (BEAKER) (test code = 547) 28.0 ug/dL 40.0-160.0 L TOTAL IRON BINDING CAPACITY 243 ug/dL 250-450 L (BEAKER) (test code = 769) IRON % SATURATION (2) (BEAKER) 12 % 20-55 L (test code = 2590) Senior Grant Writer ID - SHAQUILLE MCT, BRAIN, WITHOUT [id number] 03:54:00Unlisted Reason for Exam - Click Yes and Enter Reason Below->No [facility] 1960 Sex: [...] MDReport Verified Date/Time: 09/02/2021 03:54:37 U/S, ABDOMINAL, [id number] 03:38:00 Abdomen limited area? Add comment if clarification is needed.->Right upper quadrantReason for exam:->evaluate biliary tree/liver [facility] : 1960 Sex: [...] 09/02/2021 03:38:29 Urinalysis w/Microscopic + Reflex to [id number] 02:29:12 Test Item Value Reference Range Interpretation Comments Color, UA (test code Brown = 5778-6) Clarity, UA (test Hazy code = 5767-9) Specific [place], UA 1.029 1.001-1.035 (test code = 5811-5) pH, UA (test code = 6.0 5.0-8.0 5803-2) Protein, UA (test 30 mg/dL Negative A code = 22600-9) Glucose, UA (test Negative Negative code = 365) Ketones, UA (test Negative Negative code = 2514-8) Bilirubin, UA (test Negative Negative code = 71126-0) Blood, UA (test code Small Negative A = 03996-8) Nitrite, UA (test Negative Negative code = 5802-4) Leukocytes, UA (test Moderate Negative A code = 5799-2) Urobilinogen, UA 0.2 mg/dL 0.2-1.0 (test code = 06139-4) RBC, UA (test code = 18 See_Comment [Autom ated 89265-6) message] The system which generated this result [...] . Bacteria, UA (test Rare code = 22479-9) Mucus (test code = Moderate 8247-9) Squam Epithel, UA 2 See_Comment [Automate d (test code = 54213-5) messag e] The system which generated this result transmit barron reference range : /HPF. The reference range was not used to interpret this result as normal/abnormal . Hyaline Casts, UA 3 See_Comment [Automate d (test code = 38406-8) messag e] The system which generated this result transmit barron reference range : /LPF. The reference range was not used to interpret this result as normal/abnormal . Crystals, Urine (test None Seen code = 06808-8) Amorphous Crystals Rare (test code = 30775-8) Specimen Source (test code = 2795) REJI (test code = ERJI) Senior Grant Writer ID - [auto]Senior Grant Writer ID - tech Lab Interpretation Abnormal (test code = 33955-3) [facility]/Microscopic + Reflex to Culture 2021-09-02 02:29:12 Test Item Value Reference Range Interpretation Comments Color, UA (test code Brown = 5778-6) Clarity, UA (test Hazy code = 5767-9) Specific [place], UA 1.029 1.001-1.035 (test code = 5811-5) pH, UA (test code = 6.0 5.0-8.0 5803-2) Protein, UA (test 30 mg/dL Negative A code = 69063-2) Glucose, UA (test Negative Negative code = 365) Ketones, UA (test Negative Negative code = 2514-8) Bilirubin, UA (test Negative Negative code = 80806-6) Blood, UA (test code Small Negative A = 88602-1) Nitrite, UA (test Negative Negative code = 5802-4) Leukocytes, UA (test Moderate Negative A code = 5799-2) Urobilinogen, UA 0.2 mg/dL 0.2-1.0 (test code = 05759-9) RBC, UA (test code = 18 See_Comment [Autom ated 61067-0) message] The system which generated this result [...] . Bacteria, UA (test Rare code = 52314-9) Mucus (test code = Moderate 8247-9) Squam Epithel, UA 2 See_Comment [Automate d (test code = 14868-5) messag e] The system which generated this result transmit barron reference range : /HPF. The reference range was not used to interpret this result as normal/abnormal . Hyaline Casts, UA 3 See_Comment [Automate d (test code = 05372-6) messag e] The system which generated this result transmit barron reference range : /LPF. The reference range was not used to interpret this result as normal/abnormal . Crystals, Urine (test None Seen code = 45520-9) Amorphous Crystals Rare (test code = 81470-2) Specimen Source (test code = 2795) REJI (test code = REJI) Senior Grant Writer ID - [auto]Senior Grant Writer ID - tech Lab Interpretation Abnormal (test code = 72688-3) [facility]/Microscopic + Reflex to Culture 2021-09-02 02:29:12 Test Item Value Reference Range Interpretation Comments Color, UA (test code Brown = 5778-6) Clarity, UA (test Hazy code = 5767-9) Specific [place], UA 1.029 1.001-1.035 (test code = 5811-5) pH, UA (test code = 6.0 5.0-8.0 5803-2) Protein, UA (test 30 mg/dL Negative A code = 33345-7) Glucose, UA (test Negative Negative code = 365) Ketones, UA (test Negative Negative code = 2514-8) Bilirubin, UA (test Negative Negative code = 48200-7) Blood, UA (test code Small Negative A = 24503-1) Nitrite, UA (test Negative Negative code = 5802-4) Leukocytes, UA (test Moderate Negative A code = 5799-2) Urobilinogen, UA 0.2 mg/dL 0.2-1.0 (test code = 98357-4) RBC, UA (test code = 18 See_Comment [Autom ated 54434-4) message] The system which generated this result [...] . Bacteria, UA (test Rare code = 85006-9) Mucus (test code = Moderate 8247-9) Squam Epithel, UA 2 See_Comment [Automate d (test code = 58066-3) messag e] The system which generated this result transmit barron reference range : /HPF. The reference range was not used to interpret this result as normal/abnormal . Hyaline Casts, UA 3 See_Comment [Automate d (test code = 98079-0) messag e] The system which generated this result transmit barron reference range : /LPF. The reference range was not used to interpret this result as normal/abnormal . Crystals, Urine (test None Seen code = 28718-7) Amorphous Crystals Rare (test code = 47938-5) Specimen Source (test code = 2795) REJI (test code = REJI) Senior Grant Writer ID - [auto]Senior Grant Writer ID - tech Lab Interpretation Abnormal (test code = 42102-8) [facility] URINE [id number] 02:29:12 Test Item Value Reference Range Interpretation [...] = 1584) SOURCE(BEAKER) (test code = 2795) Senior Grant Writer ID - [auto]Senior Grant Writer ID - techRAD, CHEST, 1 VIEW, NON [id number] 01:45:00Reason for exam:->leukocytosis, unable to provide historyShould this be performed at the bedside?->Yes [facility] 1960 Sex: FFINAL REPORT Chest, 1 view. History: Leukocytosis Comparison: None available. IMPRESSION: The cardiomediastinal silhouette and pulmonary vasculature are within normal limits for a portable exam. Patchy bandlike airspace opacity in the right perihilar lung, may be related to atelectasis in the setting of low lung volumes however atypical infection can have this appearance. Recommend short interval follow-up examination to ensure resolution. No pleural effusion or pneumothorax. No lobar consolidation. Vascular stent in the right upper quadrant. Postsurgical changes of cholecystectomy. No acute osseous abnormality. Signed: Dulce Maria Sales Verified Date/Time: 09/02/2021 01:45:23 CBC W/PLT COUNT & AUTO [id number] 00:20:23 Test Item Value Reference Range Interpretation [...] CONCENTRATION Decreased (CELLAVISION)(BEAKER) (test code = 3438) Senior Grant Writer ID - Curtis Grullon comments: Slide comments:PT/[id number] 23:44:49 Test Item Value Reference Interpretation Comments [...] PTT (test code = 35.2 See_Comment [Automated 96099-9) message] The system which generated this result [...] valves. Lab Interpretation Abnormal (test code = 86385-4) [facility]PT/[id number] 23:44:49 Test Item Value Reference Interpretation Comments [...] PTT (test code = 35.2 See_Comment [Automated 08097-7) message] The system which generated this result [...] valves. Lab Interpretation Abnormal (test code = 96861-3) [facility]/[id number] 23:44:49 Test Item Value Reference Interpretation Comments Range Protime (test code = 22.8 See_Comment H [Autom ated 5902-2) message] The system which generated this result transmitted reference range : 11.9 - 14.2 seconds. The reference range was not used to interpret this result as normal/abnormal . INR (test code = 2.04 See_Comment [Automated 6181-6) message] The system which generated this result transmitted reference range : <=5.90. The reference range was not used to interpret this result as normal/abnormal . PTT (test code = 35.2 See_Comment [Automated 09360-0) message] The system which generated this result [...] valves. Lab Interpretation Abnormal (test code = 47534-8) [facility]/[id number] 23:44:49 Test Item Value Reference Range Interpretation [...] for patients with mechanical heart valves.BASIC METABOLIC [id number] 23:31:12 Test Item Value Reference Range Interpretation [...] S NOT APPLICABLE FOR DIALYSIS PATIEN TS. Senior Grant Writer ID - DBSpecimen slightly lscepimQLSTSHWEN3747-18-92 23:19:46 Test Item Value Reference Range Interpretation Comments MAGNESIUM (BEAKER) (test code = 1.8 mg/dL 1.6-2.6 627) Senior Grant Writer ID - YRGBCLYRFMOK8196-23-03 23:19:46 Test Item Value Reference Range Interpretation Comments PHOSPHORUS (BEAKER) (test code = 1.9 mg/dL 2.3-4.7 L 604) Senior Grant Writer ID - DBHEPATIC FUNCTION [id number] 23:19:46 Test Item Value Reference Range Interpretation [...] (test code = 14 U/L 6-55 347) Senior Grant Writer ID - DBSpecimen slightly ictericLactic acid, lfwopa6132-78-63 23:13:03 Test Item Value Reference Range Interpretation Comments Lactate, Venous (test 2.88 mmol/L 0.50-2.20 H code = 2872) REJI (test code = REJI) Senior Grant Writer ID - DBSpecimen slightly icteric Lab Interpretation (test Abnormal code = 02010-2) [facility], [id number] 23:13:03 Test Item Value Reference Range Interpretation Comments Lactate, Venous (test 2.88 mmol/L 0.50-2.20 H code = 2872) REJI (test code = REJI) Senior Grant Writer ID - DBSpecimen slightly icteric Lab Interpretation (test Abnormal code = 81579-2) [facility] HospitalL[facility] acid, [id number] 23:13:03 Test Item Value Reference Range Interpretation Comments Lactate, Venous (test 2.88 mmol/L 0.50-2.20 H code = 2872) REJI (test code = REJI) Senior Grant Writer ID - DBSpecimen slightly icteric Lab Interpretation (test Abnormal code = 63483-1) [facility] HospitalLACTIC ACID, [id number] 23:13:03 Test Item Value Reference Range Interpretation Comments LACTATE BLOOD VENOUS (2) (BEAKER) 2.88 mmol/L 0.50-2.20 H (test code = 2872) Senior Grant Writer ID - DBSpecimen slightly ictericPOC-Glucose fzneb4893-76-82 22:47:30 Test Item Value Reference Range Interpretation Comments POC-Glucose Meter (test 106 mg/dL 70-110 : TE STED AT [facility] code = 1538) [address] [place] [address], [facility] 30: Senior Grant Writer/Techni sowmya ID = [id number] for ULLATTIL, TAYA K Lab Interpretation (test Normal code = 31712-0) [facility]-Glucose njpoy0124-02-18 22:47:30 Test Item Value Reference Range Interpretation Comments POC-Glucose Meter (test 106 mg/dL 70-110 : TE STED AT [facility] code = 1538) [address] [place] [address], [facility] 30: Senior Grant Writer/Techni sowmya ID = [id number] for ULLATTIL, TAYA K Lab Interpretation (test Normal code = 42731-5) [facility]ucose [id number] 22:47:30 Test Item Value Reference Range Interpretation Comments POC-Glucose Meter (test 106 mg/dL 70-110 : TE STED AT [facility] code = 1538) [address] [facility] [address]: Senior Grant Writer/Techni sowmya ID = [id number] for TAYA TO K Lab Interpretation (test Normal code = 98816-9) [facility] HospitalPOWA-GLUCOSE [id number] 22:47:30 Test Item Value Reference Range Interpretation Comments POC-GLUCOSE METER 106 mg/dL 70-110 : TESTED A T [facility] 6720 (BEAKER) (test code = [facility], 1538) [address]: Senior Grant Writer/Techni sowmya ID = [id number] for WALE FITZPATRICK C1Q class 1 & 2 fdbbjcud7544-96-30 17:38:21 Test Item Value Reference Range Interpretation Comments Interpretation (test code ADDITIONAL ANTIBODY = 7731102) INFORMATION:DQ7 = DQB1*03:01; DQA1*05:03DQ7 = DQB1*03:19; DQA1*05:05DQ7 = DQB1*03:01; DQA1*06:01DQ9 = DQB1*03:03; DQA1*02:01DQ9 = DQB1*03:03; DQA1*03:02DQ8 = DQB1*03:02; DQA1*03:01DQ8 = DQB1*03:02; DQA1*03:02 Case number (test code = [id number]) C1Q class 1 & 2 antibody See link below for (test code = 8379311) PDF Lab Report [facility], diffusion, lung volumes, [facility]/[id number] 19:27:26 Test Item Value Reference Range Interpretation [...] Predicted (test code = 67.9 % 5368) [facility] vzbaoqu4280-06-64 13:53:30 Test Item Value Reference Range Interpretation Comments POC glucose (test code = 124 mg/dL 65-99 H Ope rator Name: [id number]) Clint Bustamante RDevice ID: [id number] able : [facility] Notified sec reporting consultant Interpretation (test Abnormal code = 12985-3) [facility] antigen [id number] 11:33:46 Test Item Value Reference Range Interpretation Comments SAB interpretation (test Additional Antibody code = 5950) Information:DQ2=DQB1 *02:01/DQA1*04:01, DQB1*02:01/DQA1*05:0 7RX1=DMJ0*04:02/DQA1 *04:86OU9=VTZ8*03:01 /DPA1*01:03, DPB1*03:01/DPA1*02:0 3SY3=KWS0*04:02/DPA1 *01:56OB16=TEZ6*28:0 1/DPA1*01:03 SAB serum ID (test code = [id number] 5866) [facility] serum collection [...] = 5869) Case number (test code = [id number]) Single antigen beads See link below for (test code = 4604) PDF Lab Report [facility], [facility], [id number] 20:20:55 Test Item Value Reference Range Interpretation Comments Collection start date, urine (test 08/23/21 code = 68105-8) Collection start time, urine (test 8:40 code = 17112-5) Collection stop date, urine (test 08/24/21 code = 57677-7) Collection stop time, urine (test 8:40 code = 38500-2) Hours of collection (test code = 65556-5) Total volume, urine (test code = 800 mL 05177-9) Urine protein concentration (test 7 mg/dL code = 41806-9) Urine protein excretion (test code = mg/vol 2448) [facility] HospitalCreatinine level, urine, [id number] 20:20:52 Test Item Value Reference Range Interpretation Comments Collection start date, urine (test 08/23/21 code = 18665-0) Collection start time, urine (test 8:40 code = 31106-0) Collection stop date, urine (test 08/24/21 code = 55089-2) Collection stop time, urine (test 8:40 code = 91020-0) Hours of collection (test code = 19114-9) Total volume, urine (test code = 800 mL 72081-4) Urine creatinine concentration 114 mg/dL (test code = 41435-3) Urine creatinine excretion (test mg/vol code = 60064-4) [facility] RNA [Presence] in Respiratory specimen by GUSTAVO with probe fextnroqv7159-78-41 20:48:05 Test Item Value Reference Range Interpretation Comments SARS-CoV-2 (COVID-19) RNA Not detected Not-Detected [Presence] in Respiratory specimen by GUSTAVO with probe detection (test code = 47409-8) 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 (test code = 25641-3) Whether the patient has symptoms related to condition of interest (test code = 28056-0) Patient was hospitalized because of this condition (test code = 05642-9) Whether the patient was admitted to intensive care unit (ICU) for condition of interest (test code = 65086-1) Whether patient resides in a congregate care setting (test code = 39632-2) [place] [address] [id number] 15:33:38 Test Item Value Reference Range Interpretation Comments Ventricular rate (test code = 253) Atrial rate (test code = 255) VA interval (test code = 266) QRSD interval [...] out Inferior infarct , age undetermined-Abnormal ECG- [facility] transplant bkjnamuowj9177-80-35 14:27:40 Test Item Value Reference Range Interpretation Comments HLA transplant evaluation See link below for (test code = 08392-2) PDF Lab Report Case number (test code = [id number]) [facility] ED Preliminary Interpretation - Not an Bandd2691-88-42 02:54:33 Test Item Value Reference Range Interpretation Comments REJI (test code = REJI) Orlando Balderrama MD 08/17/2021 10:33 [facility] ED Preliminary Interpretation - Not an OrderPerformed by: Orlando Balderrama MDAuthorized by: Orlando Balderrama MD ECG reviewed by ED Physician in the absence of a nursing director: yes Interpretation: Interpretation: abnormal Rate: ECG rate: 80 ECG rate assessment: normal Rhythm: Rhythm: sinus rhythm QRS: QRS axis: Normal QRS intervals: NormalST segments: ST segments: NormalOther findings: Other findings: prolonged qTc interval Lab Interpretation Abnormal (test code = 43037-7) [facility] ElklfpgcEJMM-QqZ-3 (COVID-19) RNA [Presence] in Respiratory specimen by GUSTAVO with probe [id number] 23:59:30 Test Item Value Reference Range Interpretation Comments SARS-CoV-2 (COVID-19) RNA Not detected Not-Detected [Presence] in Respiratory specimen by GUSTAVO with probe detection (test code = 32179-2) 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 (test code = 77632-8) Whether the patient has symptoms related to condition of interest (test code = 39086-6) Patient was hospitalized because of this condition (test code = 47727-1) Whether the patient was admitted to intensive care unit (ICU) for condition of interest (test code = 14306-2) Whether patient resides in a congregate care setting (test code = 03201-4) status (test code = 67868-7) PHI MICHAELSARS-CoV-2 (COVID-19) RNA [Presence] in Respiratory specimen by GUSTAVO with probe hxshzmkdl1652-39-31 14:46:31 Test Item Value Reference Range Interpretation Comments SARS-CoV-2 (COVID-19) RNA Not detected Not-Detected [Presence] in Respiratory specimen by GUSTAVO with probe detection (test code = 55579-5) 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 (test code = 65783-0) Whether the patient has symptoms related to condition of interest (test code = 34763-5) Patient was hospitalized because of this condition (test code = 29736-1) Whether the patient was admitted to intensive care unit (ICU) for condition of interest (test code = 59822-2) Whether patient resides in a congregate care setting (test code = 45286-9) status (test code = 70040-9) PHI CORLEY QGRSFZPC-YsF-6 (COVID-19) RNA [Presence] in Respiratory specimen by GUSTAVO with probe isqpyvtwg5242-40-05 19:52:10 Test Item Value Reference Range Interpretation Comments SARS-CoV-2 (COVID-19) RNA Not detected Not-Detected [Presence] in Respiratory specimen by GUSTAVO with probe detection (test code = 56219-6) 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 (test code = 06601-0) Whether the patient has symptoms related to condition of interest (test code = 36145-2) Patient was hospitalized because of this condition (test code = 47699-2) Whether the patient was admitted to intensive care unit (ICU) for condition of interest (test code = 19170-1) Whether patient resides in a congregate care setting (test code = 50595-7) status (test code = 01574-6) PHI MICHAELSARS-CoV-2 (COVID-19) RNA [Presence] in Respiratory specimen by GUSTAVO with probe eojhcqvyv4119-89-62 19:31:11 Test Item Value Reference Range Interpretation Comments SARS-CoV-2 (COVID-19) RNA Not detected Not-Detected [Presence] in Respiratory specimen by GUSTAVO with probe detection (test code = 55534-6) 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 (test code = 49289-7) Whether the patient has symptoms related to condition of interest (test code = 13064-2) Patient was hospitalized because of this condition (test code = 87640-4) Whether the patient was admitted to intensive care unit (ICU) for condition of interest (test code = 49953-3) Whether patient resides in a congregate care setting (test code = 13251-6) status (test code = 15542-3) PHI MICHAELSARS-CoV-2 (COVID-19) RNA [Presence] in Respiratory specimen by GUSTAVO with probe [id number] 02:26:38 Test Item Value Reference Range Interpretation Comments SARS-CoV-2 (COVID-19) RNA Not detected Not-Detected [Presence] in Respiratory specimen by GUSTAVO with probe detection (test code = 56902-9) PHI MICHAELSARS-CoV-2 (COVID-19) RNA [Presence] in Respiratory specimen by GUSTAVO with probe csbqkioaj8933-16-23 21:10:32 Test Item Value Reference Range Interpretation Comments SARS-CoV-2 (COVID-19) RNA Not detected Not-Detected [Presence] in Respiratory specimen by GUSTAVO with probe detection (test code = 75380-6) PHI LUTHERAN EFYASKSD-NxK-7 (COVID-19) RNA [Presence] in Respiratory specimen by GUSTAVO with probe mjztdaqyz7611-14-01 19:03:37 Test Item Value Reference Range Interpretation Comments SARS-CoV-2 (COVID-19) RNA Not detected Not-Detected [Presence] in Respiratory specimen by GUSTAVO with probe detection (test code = 70907-2) PHI LUTHERAN UAVXEPAZ-ZmM-3 (COVID-19) RNA [Presence] in Respiratory specimen by GUSTAVO with probe egxxirqpf5296-50-70 05:36:17 Test Item Value Reference Range Interpretation Comments SARS-CoV-2 (COVID-19) RNA Not detected Not-Detected [Presence] in Respiratory specimen by GUSTAVO with probe detection (test code = 87542-1) PHI MICHAELSARS-CoV-2 (COVID-19) IgG+IgM Ab [Presence] in Serum or Plasma by Nbmymtplddm7990-36-47 09:52:00 Test Item Value Reference Range Interpretation Comments SARS-CoV-2 (COVID-19) IgG+IgM Ab Not detected [Presence] in Serum or Plasma by Immunoassay (test code = 31479-9) PHI MICHAELSARS-CoV-2 (COVID-19) RNA [Presence] in Respiratory specimen by GUSTAVO with probe ypoacyblc9706-81-10 04:46:40 Test Item Value Reference Range Interpretation Comments SARS-CoV-2 (COVID-19) RNA [Presence] Detected Not-Detected in Respiratory specimen by GUSTAVO with probe detection (test code = 29007-0) YIP LUTHERAN KDULGXKM-WwI-0 (COVID-19) RNA [Presence] in Respiratory specimen by GUSTAVO with probe ujkvsmdsb9932-11-85 00:55:48 Test Item Value Reference Range Interpretation Comments SARS-CoV-2 (COVID-19) RNA Not detected Not-Detected [Presence] in Respiratory specimen by GUSTAVO with probe detection (test code = 10170-9) PHI MICHAELSARS-CoV-2 (COVID-19) RNA [Presence] in Respiratory specimen by GUSTAVO with probe krawhqqxo6862-18-54 08:17:26 Test Item Value Reference Range Interpretation Comments SARS-CoV-2 (COVID-19) RNA Not detected Not-Detected [Presence] in Respiratory specimen by GUSTAVO with probe detection (test code = 96325-2) PHI MICHAELSARS-CoV-2 (COVID-19) RNA [Presence] in Respiratory specimen by GUSTAVO with probe vyhdzbqui1715-05-91 00:04:18 Test Item Value Reference Range Interpretation Comments SARS-CoV-2 (COVID-19) RNA Not detected Not-Detected [Presence] in Respiratory specimen by GUSTAVO with probe detection (test code = 31581-2) PHI DEANRS-CoV-2 (COVID-19) RNA [Presence] in Respiratory specimen by GUSTAVO with probe thtayfzrv9213-18-98 04:41:17 Test Item Value Reference Range Interpretation Comments SARS-CoV-2 (COVID-19) RNA Not detected Not-Detected [Presence] in Respiratory specimen by GUSTAVO with probe detection (test code = 05467-3) PHI DEANRS-CoV-2 (COVID-19) RNA [Presence] in Respiratory specimen by GUSTAVO with probe noqecwbmb8775-59-93 04:13:39 Test Item Value Reference Range Interpretation Comments SARS-CoV-2 (COVID-19) RNA Not detected Not-Detected [Presence] in Respiratory specimen by GUSTAVO with probe detection (test code = 23251-4) PHI MICHAEL
--- NOTE | 2022-07-02 20:20 | ER ---
Nurse's Notes [facility] Name: Bella Barron Age: 62 yrs Sex: Female : 1960 Arrival Date: 07/02/2022 Time: 18:37 Bed 5 Private MD: Diagnosis: Tracheostomy complications-removed, healing, tiny residual of granulation tissue, reminent Presentation: 07/02 19:01 Chief complaint: Patient states: trach removed 2 weeks ago; today this shiny bump jh5 showed up and analia if it's herniated or what. It uncomfortable but i can breathe, talk, and eat without any problems today. Coronavirus screen: Vaccine status: Patient reports receiving the 2nd dose of the covid vaccine. Client denies travel out of the [place] in the last 14 days. Ebola Screen: Patient negative for fever greater than or equal to 101.5 degrees Fahrenheit, and additional compatible Ebola Virus Disease symptoms Patient denies exposure to infectious person. Patient denies travel to an Ebola-affected area in the 21 days before illness onset. Initial Sepsis Screen: Does the patient meet any 2 criteria? No. Patient's initial sepsis screen is negative. Does the patient have a suspected source of infection? No. Patient's initial sepsis screen is negative. Risk Assessment: Do you want to hurt yourself or someone else? Patient reports no desire to harm self or others. 19:01 Method Of Arrival: Ambulatory [facility] 19:01 Acuity: OLEG 3 jh5 20:44 Onset of symptoms is unknown. as6 Triage Assessment: 19:04 General: Appears in no apparent distress. obese, well groomed, well developed, Behavior [facility] is calm, cooperative, appropriate for age. Pain: Denies pain. Historical: - Allergies: 19:04 ceftriaxone; 5 19:04 Ciprofloxacin; 5 19:04 EGG/POULTRY; 5 19:04 Iodine; [facility] 19:04 LACTASE; [facility] 19:04 Promethazine; [facility] - PMHx: 19:04 cirrhosis of liver; Crohn's Disease; hypotension; kidney disease; trach removed Jun 2021; - Immunization history:: Adult Immunizations up to date. - Social history:: Smoking status: Patient denies any tobacco usage or history of. - Family history:: not pertinent. Screenin:38 Abuse screen: Denies threats or abuse. Denies injuries from another. Nutritional as6 screening: No deficits noted. Tuberculosis screening: No symptoms or risk factors identified. Fall Risk None identified. Assessment: 20:44 Derm: Wound noted suprasternal notch. as6 Vital Signs: 19:01 BP 111 / 58; Pulse 74; Resp 16; Temp 98.7; Pulse Ox 99% on R/A; Weight 69.4 kg; Height [facility] 4 ft. 11 in. (149.86 cm); 19:01 Body Mass Index 30.90 (69.40 kg, 149.86 cm) [facility] ED Course: 18:37 Patient arrived in ED. 4 19:04 Triage completed. [facility] 19:04 Arm band placed on right wrist. [facility] 19:32 Toni Loza, RN is Primary Nurse. as6 19:46 James Rossi MD is Attending Physician. [facility] 20:20 Arleth Tobin MD is Referral Physician. [facility] 20:38 Bed in low position. Call light in reach. as6 20:38 No provider procedures requiring assistance completed. Patient did not have IV access as6 during this emergency room visit. Administered Medications: No medications were administered Medication: 20:38 VIS not applicable for this client. as6 Outcome: 20:20 Discharge ordered by . [facility] 20:38 Discharged to home via wheelchair, with significant other. as6 20:38 Condition: stable 20:38 Discharge instructions given to patient, significant other, Instructed on discharge instructions, follow up and referral plans. Demonstrated understanding of instructions, follow-up care. 20:45 Patient left the ED. as6 Signatures: James Rossi MD MD cha Garcia, Rubi [facility] Bonny Reich RN RN [facility] Toni Loza, AMARILIS RN as6 Corrections: (The following items were deleted from the chart) 19:05 19:04 PMHx: trach; 5 [facility]
--- NOTE | 2022-07-02 20:21 | EDPHYS ---
Physician Documentation [facility] Name: Bella Barron Age: 62 yrs Sex: Female : 1960 Arrival Date: 07/02/2022 Time: 18:37 Bed 5 Private MD: ED Physician James Rossi HPI: 07/02 20:12 This 62 yrs old Female presents to ER via Ambulatory with complaints of Bump david From Trach Site. 20:12 The patient or guardian complains of pain, that is acute. The symptoms are located david trach site. Onset: The symptoms/episode began/occurred 5 day(s) ago. Context: The problem was sustained at an unknown location. Associated signs and symptoms: Pertinent positives: slight pain , at trach healing site. The pain does not radiate. Modifying factors: The symptoms are alleviated by nothing. the symptoms are aggravated by movement. Severity of symptoms: At their worst the symptoms were mild, in the emergency department the symptoms are unchanged. The patient has not experienced similar symptoms in the past. Historical: - Allergies: 19:04 ceftriaxone; [facility] 19:04 Ciprofloxacin; 5 19:04 EGG/POULTRY; [facility] 19:04 Iodine; [facility] 19:04 LACTASE; [facility] 19:04 Promethazine; [facility] - PMHx: 19:04 cirrhosis of liver; Crohn's Disease; hypotension; kidney disease; trach removed Jun; - Immunization history:: Adult Immunizations up to date. - Social history:: Smoking status: Patient denies any tobacco usage or history of. - Family history:: not pertinent. ROS: 20:12 Constitutional: Negative for fever, chills, and weight loss, Eyes: Negative for injury, david pain, redness, and discharge, Neck: Negative for injury, pain, and swelling, Cardiovascular: Negative for chest pain, palpitations, and edema, Respiratory: Negative for shortness of breath, cough, wheezing, and pleuritic chest pain, Abdomen/GI: Negative for abdominal pain, nausea, vomiting, diarrhea, and constipation, Back: Negative for injury and pain, : Negative for injury, bleeding, discharge, and swelling, MS/Extremity: Negative for injury and deformity, Skin: Negative for injury, rash, and discoloration, Neuro: Negative for headache, weakness, numbness, tingling, and seizure, Psych: Negative for depression, anxiety, suicide ideation, homicidal ideation, and hallucinations, Allergy/Immunology: Negative for hives, rash, and allergies, Endocrine: Negative for neck swelling, polydipsia, polyuria, polyphagia, and marked weight changes, Hematologic/Lymphatic: Negative for swollen nodes, abnormal bleeding, and unusual bruising. 20:12 ENT: Positive for at trach site. granulation tissue, not infected. Exam: 20:12 Constitutional: This is a well developed, well nourished patient who is awake, alert, david and in no acute distress. Head/Face: Normocephalic, atraumatic. Eyes: Pupils equal round and reactive to light, extra-ocular motions intact. Lids and lashes normal. Conjunctiva and sclera are non-icteric and not injected. Cornea within normal limits. Periorbital areas with no swelling, redness, or edema. Neck: Trachea midline, no thyromegaly or masses palpated, and no cervical lymphadenopathy. Supple, full range of motion without nuchal rigidity, or vertebral point tenderness. No Meningismus. Chest/axilla: Normal chest wall appearance and motion. Nontender with no deformity. No lesions are appreciated. Cardiovascular: Regular rate and rhythm with a normal S1 and S2. No gallops, murmurs, or rubs. Normal PMI, no JVD. No pulse deficits. Respiratory: Lungs have equal breath sounds bilaterally, clear to auscultation and percussion. No rales, rhonchi or wheezes noted. No increased work of breathing, no retractions or nasal flaring. Abdomen/GI: Soft, non-tender, with normal bowel sounds. No distension or tympany. No guarding or rebound. No evidence of tenderness throughout. Back: No spinal tenderness. No costovertebral tenderness. Full range of motion. Skin: Warm, dry with normal turgor. Normal color with no rashes, no lesions, and no evidence of cellulitis. MS/ Extremity: Pulses equal, no cyanosis. Neurovascular intact. Full, normal range of motion. Neuro: Awake and alert, GCS 15, oriented to person, place, time, and situation. Cranial nerves II-XII grossly intact. Motor strength 5/5 in all extremities. Sensory grossly intact. Cerebellar exam normal. Normal gait. Psych: Awake, alert, with orientation to person, place and time. Behavior, mood, and affect are within normal limits. 20:12 ENT: tiny bled of tissue over growth, will wait for it to auto amputate, told to keep clean and follow up with jcarlos fulton Saturday, call tomorrow for appointment. Vital Signs: 19:01 BP 111 / 58; Pulse 74; Resp 16; Temp 98.7; Pulse Ox 99% on R/A; Weight 69.4 kg; Height [facility] 4 ft. 11 in. (149.86 cm); 19:01 Body Mass Index 30.90 (69.40 kg, 149.86 cm) [facility] MDM: 19:46 Patient medically screened. david 20:17 Differential diagnosis: tissue over growth. Data reviewed: vital signs, nurses notes. david Administered Medications: No medications were administered Disposition Summary: 07/02/22 20:20 Discharge Ordered Location: Home david Problem: new david Symptoms: have improved david Condition: Stable david Diagnosis - Tracheostomy complications - removed, healing, tiny residual of granulation tissue, david reminent Followup: david - With: Private Physician - When: 2 - 3 days - Reason: Recheck today's complaints, Continuance of care, Re-evaluation by your physician Followup: david - With: Arleth Fulton MD - When: 1 week - Reason: Recheck today's complaints, Continuance of care, Re-evaluation by your physician Discharge Instructions: - Discharge Summary Sheet david - Wound Care, Adult david Forms: - Medication Reconciliation Form david - Thank You Letter david - Antibiotic Education david - Prescription Opioid Use [facility] Signatures: James Rossi MD MD cha Rees, Jessica, RN RN 5 Corrections: (The following items were deleted from the chart) 19:05 19:04 PMHx: trach; [place] [id number]
[2022-07-02 21:39] VITALS: BP 111/58; TEMP 98.7; O2SAT 99
== END 2022-07-02 20:45 | disposition home or self-care (01) ==
LOC: ER 18:35
DX: J95.09 Other tracheostomy complication (principal)
CPT/HCPCS: 99281

== ENCOUNTER 2022-07-09 13:58 | Emergency (ER) | payer OTHER ==
--- OUTSIDE RECORDS SUMMARY | 2022-07-09 14:31 | XMS REPORT | Continuity of Care Document ---
:1960 Author Organization [facility] t Address [address] [place] [address] Dr. Saul. [address] [place] [address] Care Team Providers Name Role Phone CALOS [...] SALLY AGUDELO Attending Clinician Unavailable Doctor Unassigned, Kiel Attending Clinician Unavailable Victoriano Membreno Attending Clinician Unavailable Mercy Tamez MD Attending Clinician CALOS GARCIA Attending Clinician Unavailable Libby Levy PA-C Attending Clinician LIBBY LEVY Attending Clinician Unavailable Michael FRANKLIN, Kendy Dalal Attending Clinician [phone] Dawna Anguiano MD Attending Clinician Isabella FRANKLIN, Zara Stevenson Attending Clinician [phone] Shiela Zabala MD Attending Clinician Selma Lu MD Attending Clinician Kyle FRANKLIN, Nia Delaney Attending Clinician KENDY HALL Attending Clinician Unavailable Jn Cleveland RN Attending Clinician Unavailable MOISES BRO Attending Clinician Unavailable Sawyer Huitron MD Attending [...] MD BAYLEE GIRARD Attending Clinician Unavail able iBa Tee RN Attending Clinician Unavailable Wild Kovacs DO Attending Clinician [phone] Cliff Levy MD Attending Clinician MD CALOS GARCIA Attending Clinician Unavailable Freedom Gutierrez DO Attending Clinician Robby Perez MD Attending Clinician [phone] MD HERIBERTO YORK Attending Clinician Unavailable [...] ANGIE MAN Admitting Clinician Unavailable MD ANGIE AMN Admitting Clinician Unavailable HERMILO CHAMPION Admitting Clinician Unavailable MD HERMILO CHAMPION Admitting Clinician Unavailable MERCY RUEDA Admitting Clinician Unavailable DO MERCY RUEDA Admitting Clinician Unavailable YOVANY TAVERAS Admitting Clinician Unavailable Indra Motta MD Admitting Clinician Payers Payer Name Policy Type Policy Number Effective Date Expiration Date S pedro MEDICARE A B [id number] 2015 00:00:00 GENERIC MEDICAID [id number] 2021 [facility] 00:00:00 MEDICARE PART A [id number] 2015 \\T\\ B 00:00:00 MEDICAID [id number] 2018 [place] 00:[place]00 [facility] [id number] [facility] MEDICARE NOVITAS [id number] 2015 Common 00:00:00 Spirit - [facility] [id number] [facility] MEDICARE NOVITAS MB [id number] 2015 Common 00:00:00 [facility] MEDICARE NOVITAS MB [id number] 2015 Common 00:00:00 [facility] [id number] Common [facility] MEDICARE NOVITAS MB [id number] 2015 Common 00:00:00 [facility] [id number] Common [facility] [id number] Common [facility] MEDICARE NOVITAS MB [id number] 2015 Common 00:00:00 [facility] [id number] Common [facility] MEDICARE NOVITAS MB [id number] 2015 Common 00:00:00 [facility] MEDICARE NOVITAS MB [id number] 2015 Common 00:00:00 [facility] [id number] Common [facility] MEDICARE NOVITAS MB [id number] 2015 Common 00:00:00 [facility] [id number] Common [facility] MEDICARE NOVITAS MB [id number] 2015 Common 00:00:00 [facility] [id number] Common [facility] [id number] 2016 HEALTHCARE 00:00:00 MEDICAID Problems Condition Condition [...] Added automatic ally from request for surgery [id number] Chronic Chronic Disease Active 2020-08 Methodi kidney [...] nivers ia ia 03-06 ity of 00:00: [place] 00 Medical Branch Abdominal Abdominal Disease Active [...] Added automatic ally from request for surgery [id number] Persistent Persistent Disease Active M ethodi depressive depressive 10-09 st disorder disorder 00:00: Hospit a 00 l 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 2-02 it y of athy athy 00:00: [place] 00 Medical Branch Hepatic Hepatic Disease Active 2015-08 Methodi encephalop encephalop [address] athy athy 00:00: Hospita 00 l Thrombocyt Thrombocyt Disease Active M ethodi openia openia 05-04 00:00: Hospita 00 l Malnutriti Malnutriti Disease Active M ethodi on on 05-04 00:00: Hospita 00 l Right Right Disease Active Univers shoulder shoulder 4-25 ity of pain pain 00:00: [place] 00 Medical Branch Anxiety Anxiety Disease Active 2016-0 Univers and and 4-22 ity of depression [place] Rectal Rectal Disease Active 2014-08 Univers bleed bleed 2-03 ity of 00:00: [place] 00 [facility] Branch Cirrhosis Cirrhosis Disease Active [facility] Crohn Crohn Disease Active [facility] disease disease [facility] [id number] Secondary Problem Active Comm on esophageal Spirit varices - [facility]I without [facility] bleeding [facility] [id number] Portal Problem Active Common hypertensi Spirit on - [facility] [id number] S/P TIPS Problem Active Comm on (transjugu Spirit lar - [facility] intrahepat [facility] portosyste Medica l jacqueline shunt) Center [id number] MCFARLANE Problem Active Common (nonalcoho Spirit lic - [facility] steatohepa [facility] [id number] End stage Problem Active Com mon liver Spirit disease - 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 openia openia [facility] Bipolar Bipolar Problem Active Common disorder disorder [facility] Restless Restless Problem Active Commo n legs legs Spirit syndrome syndrome - [facility] [id number] Inflammato Problem Active Com mon ry bowel Spirit disease - [facility] [id number] Incontinen Problem Active Com mon ce of Spirit feces, - [facility] unspecifie [facility] fecal [facility] incontinen Medica l ce type Center Body mass BMI Problem Active Common index 40+ 40.0-44.9, Spi rit - morbidly adult - [facility] obese [facility] Allergic Seasonal Problem Active Commo n rhinitis and Spirit perennial - [facility] allergic rhinitis [facility] Irritable Irritable Problem Active Com mon bowel bowel Spirit syndrome syndrome - [facility] without St diarrhea [facility] [id number] Adult BMI Problem Active Com mon 35.0-35.9 Spirit kg/sq [facility] [id number] Insomnia, Problem Active Com mon unspecifie Spirit d type [facility] Migraine Migraine Problem Active Commo n [facility] Gout Gout Problem Active Common [facility] Allergies, Adverse Reactions, Alerts Allergy Allergy Status Severity Reaction(s) Onset Inactive Treating Comm ents Source Name Type Date Date Clinician Shellfis Drug Active [facility] Allergy 2- [facility] Containi 00:00: Medical ng 00 [place] Products Fish Drug Active [facility] Containi Allergy - [facility] ng 00:00: Medical Products 00 [place] FISH Allergy Active [facility] CONTAINI 09-12 [facility] NG 00:00: Medical PRODUCTS 00 [place] SHELLFIS Allergy Active [facility] H 2- [facility] CONTAINI 00:00: Medical NG 00 [place] PRODUCTS Eggshell Drug Active [facility] Membrane Allergy 27 [facility] 00:00: Medical 00 [place] EGGSHELL Allergy Active [facility] MEMBRANE -27 [facility] 00:00: Medical 00 [place] Prometha Propensi Active [facility] zine ty to 09-02 [facility]ukes adverse 00:00: Medical reaction 00 [place] s Ceftriax Propensi Active [facility] one ty to 22 [facility] adverse 00:00: Medical reaction 00 [place] s Iodine Propensi Active [facility] ty to 22 [facility] adverse 00:00: Medical reaction 00 Center s CEFTRIAX Allergy Active [facility] ONE -22 [facility] 00:00: Medical 00 [place] IODINE Allergy Active [facility] -22 [facility] 00:00: Medical 00 [place] PROMETHA Allergy Active [facility] ZINE 1-22 [facility] 00:00: Medical 00 [place] Ciproflo Propensi Active Hives 2020-08 Method i xacin ty to 0-13 st adverse 00:00: Hospita reaction 00 l s to drug CEFTRIAX DRUG Active ITCHING Univers ONE INGREDI 2-25 ity of 00:00: [place] 00 Medical Branch Ceftriax Propensi Active Itching 2018-0 Metho di one ty to 2 st adverse 00:00: Hospita reaction 00 l s to drug Ceftriax Propensi Active Itching 2017-0 Unive rs one ty to 2 ity [...] 10-08 ity of adverse 00:00: [place] reaction Medical s Branch EGGSHELL DRUG Active Diarrhea [...] INGREDI 05-05 ity of DERIVED 00:00: [place] [facility] Shellfis Propensi Active Anaphylaxis 2016-0 M ethodi [...] Drug Active Unknown Common allergy Spirit - [facility] prometha prometha Active Unknown Commo n isidoro chaudhry Spirit - [facility] Family History Family Member Diagnosis Comments Start Date Stop Date Source Natural father No Known Problems Met [facility] Natural mother No Known Problems Met [facility] Social History Social Habit Start Date Stop Date Quantity Comments Source History SDOH [facility] Alcohol Std Drinks Medica l Center History SDOH [facility] Alcohol Binge Medical [place] ter History SDOH [facility] Alcohol Comment Medical C enter Exposure to Not sure University of SARS-CoV-2 (event) [facility] History of Tobacco Common Spirit - Use [facility] Alcohol intake 2021-09-02 2021-09-[address] [facility] es 00:00:00 00:00:00 non-drinker Medical Cente r (finding) History SDOH 2021-09-02 2021-09-[address] [facility] Alcohol Frequency 00:00:00 00:00:00 [facility] Tobacco use and 2019-01-30 2019-01-30 Never used Universit y of exposure 00:00:00 00:00:00 [facility] Cigarettes smoked 2016-11-22 2016-11-[address] current (pack per 00:00:00 00:00:00 [facility] day) - Reported Cigarette 2016-11-22 2016-11-22 [facility] 00:00:00 00:00:00 Hospital Tobacco Comment 2016-09-12 2016-09-12 smokes 5 [facility] 00:00:00 00:00:00 cigarettes per Hospital day Sex Ass[birth year] At [birth year] [facility] 00:00:00 00:00:00 [facility] Smoking Status Start Date Stop Date Source Former Smoker 2021-10-13 00:00:00 2021-10-13 00:00:00 Common S pirit - [facility] Never smoker [facility] Medications Ordered Filled Start Stop Current Ordering Indication Dosage Frequency Signature Comments Components Source Medication Medication Date Date Medication? Clinician (SIG) Name Name estradioL Yes [id number] Apply 1g Univers (ESTRACE) 2-21 vaginally ity o f 0.01 % (0.1 00:00: at bedtime [place] mg/gram) 00 every Medical vaginal night for Branch cream 2 weeks and then apply 1g vaginally at bedtime 3 times per week ( ida) nystatin 0 Yes [id number] Apply to Un linda (NYSTOP) 2-21 area(s) 3 ity of 100,000 00:00: (three) [place] unit/gram 00 times Medical powder daily. Branch estradioL Yes [id number] Apply 1g Univers (ESTRACE) 2-21 vaginally ity o f 0.01 % (0.1 00:00: at bedtime [place] mg/gram) 00 every Medical vaginal night for Branch cream 2 weeks and then apply 1g vaginally at bedtime 3 times per week ( ida) nystatin 0 Yes [id number] Apply to Un linda (NYSTOP) 2-21 area(s) 3 ity of 100,000 00:00: (three) [place] unit/gram 00 times Medical powder daily. Branch estradioL Yes [id number] Apply 1g Univers (ESTRACE) 2-21 vaginally ity o f 0.01 % (0.1 00:00: at bedtime [place] mg/gram) 00 every Medical vaginal night for Branch cream 2 weeks and then apply 1g vaginally at bedtime 3 times per week ( ida) nystatin 0 Yes [id number] Apply to Un linda (NYSTOP) 2-21 area(s) 3 ity of 100,000 00:00: (three) [place] unit/gram 00 times Medical powder daily. Branch methylnaltr Yes Take by Uni vers exone 2-16 mouth. ity of bromide 14:28: [place] (RELISTOR 49 Medical ORAL) Branch potassium Yes Take by Unive rs (POTASSIMIN 2-16 mouth once it y of ORAL) 14:28: now. [address] spironolact 0 Yes 100mg Take 100 U nivers one 100 mg 2-16 mg by ity of tablet 14:28: mouth. [address] methylnaltr Yes Take by Uni vers exone 2-16 mouth. ity of bromide 14:28: [place] (RELISTOR 49 Medical ORAL) Branch potassium Yes Take by Unive rs (POTASSIMIN 2-16 mouth once it y of ORAL) 14:28: now. [address] spironolact Yes 100mg Take 100 U nivers one 100 mg 2-16 mg by ity of tablet 14:28: mouth. [address] methylnaltr Yes Take by Uni vers exone 2-16 mouth. ity of bromide 14:28: [place] ([place] [address] Medical ORAL) [place] potassium Yes Take by Unive rs (POTASSIMIN 2-16 mouth once it y of ORAL) 14:28: now. [address] spironolact Yes 100mg Take 100 U nivers one 100 mg 2-16 mg by ity of tablet 14:28: mouth. [address] lactulose Yes 20g Q.[id number] Take [address] (Kristalose 2-07 [id number] packet (20 [facility]ukes ) 20 gram 00:00: 3D g total) Medi cj packet 00 by mouth 3 Center (three) times daily START ONCE STOOLS ARE FORMED.. lactulose Yes 20g Q.[id number] Take [address] (Kristalose 2-07 [id number] packet (20 [facility]ukes ) 20 gram 00:00: 3D g total) Medi cj packet 00 by mouth 3 Center (three) times daily START ONCE STOOLS ARE FORMED.. lactulose Yes 20g Q.[id number] Take [address] (Kristalose 2-07 [id number] packet (20 [facility]ukes ) 20 gram 00:00: [...] capsule 56 (two) Center times daily. pantoprazol 2022-0 Yes 1{tbl} QD Take 1 CH I [...] Medical 56 night as Center needed. gabapentin 0 Yes 1{capsu Q.5D Take 1 CH I [...] (two) Center times daily as needed. ondansetron 0 Yes 4mg Take 4 mg [...] Center hours as needed for Pain. eszopiclone Yes 2mg Take [address] (LUNESTA) 2 2-05 by mouth Luke s MG tablet 12:13: every Medical 56 night as Center needed. gabapentin 0 Yes 1{capsu Q.5D Take 1 CH I [...] (two) Center times daily as needed. ondansetron 0 Yes 4mg Take 4 mg [...] Center hours as needed for Pain. fidaxomicin 2021- No 200mg Take 1 CH [...] for 3 days. lactulose 2021- No 1{packe Q.[id number] Take [address] (Kristalose 2-04 02-04 t} [id number] packet by [facility]ukes ) 20 gram 15:50: 00:00 3D mouth 3 Medi cj packet 31 :00 (three) Center times daily. lactulose 2021- No 1{packe Q.[id number] Take [address] (Kristalose 2-04 02-04 t} [id number] packet by [facility] ) 20 gram 15:50: 00:00 3D mouth 3 Medi cj packet 31 :00 (three) Center times daily. lactulose 2021- No 1{packe Q.[id number] Take [address] (Kristalose 2-04 02-04 t} [id number] packet by [facility]ukes ) 20 gram 15:50: 00:00 3D mouth 3 Medi cj packet 31 :00 (three) Center times daily. zinc 2021-[address] oxide-luana 2-04 TOPICALLY Alejo es latum 00:00: BID. Medical (CRITIC-AID 00 Center ) 20-51 % Pste topical paste zinc 2021-[address] oxide-luana 2-04 TOPICALLY Alejo es latum 00:00: BID. Medical (CRITIC-AID 00 Center ) 20-51 % Pste topical paste zinc 2021-[address] [facility] oxide-luana 2-04 TOPICALLY [...] St ine 2-04 02-04 t} packet by [employer] ([employer]) 00:00: 23:59 mouth 2 Med ical 4 gram PwPk 00 :00 (two) Center packet times daily. nystatin 2022- No Q.5D Apply [facility] (MYCOSTATIN 2-04 02-04 topically Susanna kes ) 100,000 00:00: 23:59 2 (two) Medi cj unit/gram 00 :00 times Center powder daily. cholestyram 2022- No 1{packe Q.5D Take [address] ine 2-04 02-04 t} packet by [employer] ([employer]) 00:00: 23:59 mouth 2 Med ical 4 gram PwPk 00 :00 (two) Center packet times daily. nystatin 2021-2022- No Q.5D Apply [facility] (MYCOSTATIN 2-04 02-04 topically Susanna kes ) 100,000 00:00: 23:59 2 (two) Medi cj unit/gram 00 :00 times Center powder daily. cholestyram 2022- No 1{packe Q.5D Take [address] ine 2-04 02-04 t} packet by [employer] (QUESTRAN) 00:00: 23:59 mouth 2 Med ical 4 gram PwPk 00 :00 (two) Center packet times daily. acetaminoph 2021-2022- No 650mg Take [address] en 09-1530 tablets Lukes (TYLENOL) 00:00: 23:59 (650 mg Medi cj 325 MG 00 :00 total) by Center tablet mouth every 8 (eight) hours as needed for up to 360 days. acetaminoph 2021-0 2022- No 650mg Take [address] en 09-1530 tablets Lukes (TYLENOL) 00:00: 23:59 (650 mg Medi cj 325 MG 00 :00 total) by Center tablet mouth every 8 (eight) hours as needed for up to 360 days. acetaminoph 2021-2022- No 650mg Take [address] en 09-1530 tablets Lukes (TYLENOL) 00:00: 23:59 (650 mg Medi cj 325 MG 00 :00 total) by Center tablet mouth every 8 (eight) hours as needed for up to 360 days. lidocaine 2021-2021- No 1{patch Q24H Place [address] (LIDODERM) 2 03-06 } patch onto Susanna kes 5 % patch 00:00: 23:59 the skin Med ical 00 :00 daily for Center 30 days Remove & Discard patch within 12 hours or as directed by . lidocaine 2021-0 2- No 1{patch Q24H Place [address] (LIDODERM) 2 03-06 } patch onto Susanna kes 5 % patch 00:00: 23:59 the skin Med ical 00 :00 daily for Center 30 days Remove & Discard patch within 12 hours or as directed by . lidocaine 2021-0 2- No 1{patch Q24H Place [address] (LIDODERM) 2 03-06 } patch onto Susanna kes 5 % patch 00:00: 23:59 the skin Med ical 00 :00 daily for Center 30 days Remove & Discard patch within 12 hours or as directed by . fidaxomicin 2021-0 2- No 200mg Take [address] 200 mg Tab 09-15-05 tablet Lukes 00:00: 00:00 (200 mg Medical 00 :00 total) by Center mouth every 12 (twelve) hours for 7 days. fidaxomicin 2022-0 2022- No 200mg Take [address] 200 mg Tab 2-04 02-05 tablet [facility]ukes 00:00: 00:00 (200 mg Medical 00 :00 total) by Center mouth every 12 (twelve) hours for 7 days. fidaxomicin 2022-0 2022- No 200mg Take [address] 200 mg Tab 2-04 02-05 tablet [facility]ukes 00:00: 00:00 (200 mg Medical 00 :00 total) by Center mouth every 12 (twelve) hours for 7 days. cholestyram 2021-0 2- No 1{packe Q.5D Take [address] ine 2-04 02-04 t} packet by [employer] ([employer]AN) 00:00: 00:00 mouth 2 Med ical 4 gram PwPk 00 :00 (two) Center packet times daily. fidaxomicin 2022-0 2022- No 200mg Take [address] 200 mg Tab 2-04 02-04 tablet [facility]ukes 00:00: 00:00 (200 mg Medical 00 :00 total) by Center mouth every 12 (twelve) hours for 7 days. lidocaine 2021- 2022- No 1{patch Q24H Place [address] (LIDODERM) 2 02-04 } patch onto Susanna kes 5 % patch 00:00: 00:00 the skin Med ical 00 :00 daily for Center 30 days Remove & Discard patch within 12 hours or as directed by . cholestyram 2-0 2- No 1{packe Q.5D Take [address] ine 2-04 02-04 t} packet by [employer] ([employer]) 00:00: 00:00 mouth 2 Med ical 4 gram PwPk 00 :00 (two) Center packet times daily. fidaxomicin 2022-0 2022- No 200mg Take [address] 200 mg Tab 2-04 02-04 tablet [facility]ukes 00:00: 00:00 (200 mg Medical 00 :00 total) by Center mouth every 12 (twelve) hours for 7 days. lidocaine 2022-0 2022- No 1{patch Q24H Place [address] (LIDODERM) 2- 02-04 } patch onto Susanna kes 5 % patch 00:00: 00:00 the skin Med ical 00 :00 daily for Center 30 days Remove & Discard patch within 12 hours or as directed by . cholestyram 2021- No 1{packe Q.5D Take [address] ine 09-1504 t} packet by [employer] (QUESTRAN) 00:00: 00:00 mouth 2 Med ical 4 gram PwPk 00 :00 (two) Center packet times daily. fidaxomicin 2021- No 200mg Take [address] 200 mg Tab 09-15 tablet [facility]ukes 00:00: 00:00 (200 mg Medical 00 :00 total) by Center mouth every 12 (twelve) hours for 7 days. lidocaine 2021- No 1{patch Q24H Place [address] (LIDODERM) 09-15 } patch onto Susanna kes 5 % [...] [facility] (Ubrelvy) 1-24 mg by Susannakes 100 mg Tab 16:27: mouth 2 Medi cj 54 (two) Center times daily as needed. pantoprazol 0 Yes 1{tbl} QD Take [address] e 1-24 tablet by Gurpreet (PROTONIX) 16:27: mouth Medica l 40 MG 53 daily. Center tablet QUEtiapine 0 Yes 1{tbl} QD Take [address] (SEROqueL) 1-24 tablet by Dano s 50 MG 16:27: mouth Medical tablet [...] MG 16:27: mouth Medical tablet 53 nightly. [place] eszopiclone Yes 2mg Take [address] (LUNESTA) 2 1-24 by mouth Luke s MG tablet 16:27: every Medical 52 night as Center needed. gabapentin Yes 1{capsu Q.5D Take [address] (NEURONTIN) 1-24 le} capsule by Susanna kes 300 MG 16:27: mouth 2 Medical capsule 52 (two) Center times daily. lactulose Yes 1{packe Q.[id number] Take [address] (Kristalose 1-24 t} [id number] packet by Gurpreet ) 20 gram 16:27: 3D mouth 3 Medic al packet 52 (three) Center times daily. azithromyci 202- No 500mg QD Take 1 Me [...] tablet needed for nausea or vomiting. pantoprazol No 40mg QD Take 40 mg Methodi [...] additional dose as needed at bedtime spironolact 0 Yes 50mg QD Take 50 mg Methodi [...] 48 (two) l times a day. ubrogepant 0 Yes 100mg Q.5D Take 100 Me thodi [...] 11/06/20 Quantity: 30 Days Supply: 30 topiramate 0 Yes 50mg Q.5D Take 50 mg M [...] hours as needed for moderate pain. Per [place] Pres[facility] on Drug Monitoring Program records: Last filled: 01/16/21 Quantity: 30 Days Supply: 5 zinc 2021-0 2021- No 1{capsu QD Take 1 Methodi sulfate -11 02 le} capsule by st (ZINCATE) 00:00: 05:59 [...] a tablet 47 :00 l SUMAtriptan Yes [id number] 50mg Q24H Take 1 Methodi (Imitrex) -10 [...] l nightly for 30 days. pantoprazol No [id number] 40mg QD Take 1 Methodi e 08-21 [...] OF 2 IN 24 HOURS. Oral furosemide 20mg Take 20 mg Methodi (LASIX) 20 [...] 1000 53 :00 l MCG tablet benztropine 1 tablet M ethodi (COGENTIN) 08-[address] 0.5 MG 09:52: 00:00 Orally Hospita tablet 26 :00 Once a day l nitrofurant 2020-08 No 100mg Q.5D Take 1 Me thodi oin, 2-31 08-[address] macrocrysta 00:00: 00:00 (100 [...] QD Take 1 mg Methodi (LUNESTA) 1 09-21-[address] MG tablet 14:27: 00:00 [...] day for 30 days. gabapentin No 300mg Q.[id number] Take 1 Methodi (NEURONTIN) 04-[id number] 300 mg 00:00: 00:00 3D (300 mg Hospita capsule 00 :00 total) by l mouth 3 (three) times a day for 30 days. Ketorolac Ketorolac 2019-0 No 30mg Com mon (Toradol) (Toradol) 8-24 Spiri t per 15mg per 15mg 00:00: - CHI 00 [facility] Ketorolac Ketorolac 2019-0 No 30mg Com mon (Toradol) (Toradol) 8-24 Spiri t per 15mg per 15mg 00:00: - CHI [facility] Ketorolac Ketorolac 2019-0 No 30mg Com mon (Toradol) (Toradol) 8-24 Spiri t per 15mg per 15mg 00:00: - CHI [facility] Vitamin B12 Vitamin B12 2020-0 No 1000ug Common (Cyanocobal (Cyanocobal 7-24 S pirit jameson) jameson) 00:00: - CHI 00 [facility] Vitamin B12 Vitamin B12 2020-0 No 1000ug Common (Cyanocobal (Cyanocobal 7-24 S pirit jameson) jameson) 00:00: - CHI 00 [facility] Vitamin B12 Vitamin B12 2020-0 No 1000ug Common (Cyanocobal (Cyanocobal 7-24 S pirit jameson) jameson) 00:00: - CHI 00 [facility] pantoprazol 2021- No [id number] 40mg QD Take 1 Methodi e 6-15 -08 tablet (40 st (PROTONIX) 00:00: 00:00 mg total) H ospita 40 MG EC 00 :00 by mouth l tablet every morning. SUMAtriptan 2021- No [id number] 50mg Q24H Take 1 Methodi (Imitrex) -15 08-19 tablet (50 st 50 MG 00:00: [...] X 1" 00 Vitamin B12 Vitamin B12 2018- No 1000ug Common (Cyanocobal (Cyanocobal 2-05 S pirit jameson) jameson) 00:00: - CH[facility] Vitamin B12 Vitamin B12 2019- No 1000ug Common (Cyanocobal (Cyanocobal 2-05 S pirit jameson) jameson) 00:00: - CHI 00 [facility] Vitamin B12 Vitamin B12 2019-1 No 1000ug Common (Cyanocobal (Cyanocobal 2-05 S pirit jameson) jameson) 00:00: - CHI 00 [facility] Vitamin B12 Vitamin B12 2019-0 No 1000ug Common (Cyanocobal (Cyanocobal 8-29 S pirit jameson) jameson) 00:00: - [facility] Vitamin B12 Vitamin B12 2019-0 No 1000ug Common (Cyanocobal (Cyanocobal 8-29 S pirit jameson) jameson) 00:00: - CHI 00 [facility] Vitamin B12 Vitamin B12 2018-0 No 1000ug Common (Cyanocobal (Cyanocobal 8-29 S pirit jameson) jameson) 00:00: - [facility] eszopiclone 2019-0 Yes 2mg Take 2 mg U nivers 2 mg tablet 7-29 by mouth ity of 16:42: at [place] [address] bedtime. Medical Branch GABAPENTIN 2018-0 Yes [facility] ers ORAL 7-29 mouth. ity of 16:42: [place] [address] Medical Branch traMADOL 50 0 Yes 50mg Take 50 mg Univers mg tablet 7-29 by mouth ity of 16:42: as needed [place] [address] for Pain Medical (scale Branch 7-10). eszopiclone 2019-0 Yes 2mg Take 2 mg U nivers 2 mg tablet 7-29 by mouth ity of 16:42: at [place] [address] bedtime. Medical Branch GABAPENTIN 2018-0 Yes Take by [facility] ers ORAL 7-29 mouth. ity of 16:42: [place] [address] Medical Branch traMADOL 50 0 Yes 50mg Take 50 mg Univers mg tablet 7-29 by mouth ity of 16:42: as needed [place] [address] for Pain Medical (scale Branch 7-10). eszopiclone 2018-0 Yes 2mg Take 2 mg U nivers 2 mg tablet 7-29 by mouth ity of 16:42: at [place] [address] bedtime. Medical Branch GABAPENTIN 2018-0 Yes Take by [facility] ers ORAL 7-29 mouth. ity of 16:42: [place] [address] Medical Branch traMADOL 50 0 Yes 50mg Take 50 mg Univers mg tablet 7-29 by mouth ity of 16:42: as needed [place] [address] for Pain Medical (scale Branch 7-10). lactulose 2019-0 Yes [id number] 20g Take 1 Un linda (KRISTALOSE 7-29 Packet by ity of ) 20 gram 00:00: mouth 3 [place] packet 00 (three) Medical times Branch daily. lactulose 2019-0 Yes [id number] 20g Take 1 Un linda (KRISTALOSE 7-29 Packet by ity of ) 20 gram 00:00: mouth 3 [place] packet 00 (three) Medical times Branch daily. lactulose 2019-0 Yes [id number] 20g Take 1 Un linda (KRISTALOSE 7-29 Packet by ity of ) 20 gram 00:00: mouth 3 [place] packet 00 (three) Medical times Branch daily. ondansetron Yes [id number] 8mg Take 2 Univers 4 mg tablet 4-01 tablets by it y of 00:00: mouth [place] 00 every 8 Medical (eight) Branch hours as needed for Nausea and Vomiting (N/V). ondansetron Yes [id number] 8mg Take 2 Univers 4 mg tablet 4-01 tablets by it y of 00:00: mouth [place] 00 every 8 Medical (eight) Branch hours as needed for Nausea and Vomiting (N/V). ondansetron Yes [id number] 8mg Take 2 Univers 4 mg tablet 4-01 tablets by it y of 00:00: mouth [place] 00 every 8 Medical (eight) Branch hours as needed for Nausea and Vomiting (N/V). butalbital- Yes [id number] 1{capsu Take 1 Univers aspirin-caf 3-25 le} capsule by it y of feine 00:00: mouth [place] 50-325-40 00 every 4 Medical mg per (four) Branch capsule hours as needed for Pain (headache unrelieved wtih other medication s). butalbital- Yes [id number] 1{capsu Take 1 Univers aspirin-caf 3-25 le} capsule by it y of feine 00:00: mouth [place] 50-325-40 00 every 4 Medical mg per (four) Branch capsule hours as needed for Pain (headache unrelieved wtih other medication s). butalbital- Yes [id number] 1{capsu Take 1 Univers aspirin-caf 3-25 le} capsule by it y of feine 00:00: mouth [place] 50-325-40 00 every 4 Medical mg per (four) Branch capsule hours as needed for Pain (headache unrelieved wtih other medication s). Albuterol Albuterol No 2{puffs Albuterol Sulfate HFA Sulfate HFA 09-09 _as_nee Sulfate 108 (90 108 (90 00:00: ded} HFA 108 Base) Base) 00 (90 Base) MCG/ACT MCG/ACT MCG/ACT Albuterol Albuterol No 2{puffs Albuterol Sulfate HFA Sulfate HFA 09-09 _as_nee Sulfate 108 (90 108 (90 00:00: ded} HFA 108 Base) Base) 00 (90 Base) MCG/ACT MCG/ACT MCG/ACT XIFAXAN 550 2016-08 Yes [id number] TAKE ONE Univers mg tablet 1-27 TABLET BY ity o f 00:00: MOUTH 2 [place] 00 TIMES A Medical DAY Branch PANTOPRAZOL 2016-08 Yes [id number] TAKE ONE Univers E 40 mg EC 1-27 TABLET BY ity of tablet 00:00: MOUTH [place] 00 EVERY DAY Medical Branch XIFAXAN 550 2016-08 Yes [id number] TAKE ONE Univers mg tablet 1-27 TABLET BY ity o f 00:00: MOUTH 2 [place] 00 TIMES A Medical DAY Branch PANTOPRAZOL 2016-08 Yes [id number] TAKE ONE Univers E 40 mg EC 1-27 TABLET BY ity of tablet 00:00: MOUTH [place] 00 EVERY DAY Medical Branch XIFAXAN 550 2016-08 Yes [id number] TAKE ONE Univers mg tablet 1-27 TABLET BY ity o f 00:00: MOUTH 2 [place] 00 TIMES A Medical DAY Branch PANTOPRAZOL 2016-08 Yes [id number] TAKE ONE Univers E 40 mg EC 1-27 TABLET BY ity of tablet 00:00: MOUTH [place] 00 EVERY DAY Medical Branch acetaminoph 2017-0 Yes [...] acetaminoph 2017-0 Yes 1{tbl} Take 1 Un linad en-codeine 3-27 tablet by ity of (TYLENOL-CO [...] 0-10 by mouth. ity of tablet 00:00: [place] [address] Medical Branch furosemide 2015-08 Yes 40mg Take 40 mg U nivers 40 mg 0-10 by mouth. ity of tablet 00:00: [place] [address] Medical Branch furosemide 2015-08 Yes 40mg Take 40 mg U nivers 40 mg 0-10 by mouth. ity of tablet 00:00: [address] Branch Allopurinol Allopurinol Yes Fernando 2 tablets [facility] Zofran ODT Zofran ODT No 1{table [...] 2021-04-12 Completed Universit y of Vaccine 00:00:00 [facility] Influenza Virus 2021-04-12 Completed Universit y of Vaccine 00:00:00 [facility] Influenza Virus 2021-04-12 Completed Universit y of Vaccine 00:00:00 [facility] SARS-COV-2 COVID-19 2020-12-14 Completed Unive rsity of YANIRA/J&J VACCINE 00:00:00 [facility] SARS-COV-2 COVID-19 2020-12-14 Completed Unive rsity of YANIRA/J&J VACCINE 00:00:00 [facility] SARS-COV-2 COVID-19 2020-12-14 Completed Unive rsity of YANIRA/J&J VACCINE 00:00:00 [facility] Ketorolac (Toradol) Ketorolac (Toradol) 2020-04-04 Completed [facility] - per 15mg per 15mg 11:19:00 [facility] Ketorolac (Toradol) Ketorolac (Toradol) 2020-04-04 Completed [facility] - per 15mg per 15mg 11:19:00 [facility] Ketorolac (Toradol) Ketorolac (Toradol) 2020-04-04 Completed [facility] - per 15mg per 15mg 11:19:00 [facility] Ketorolac (Toradol) Ketorolac (Toradol) 2020-04-04 Completed [facility] - per 15mg per 15mg 11:19:00 [facility] Ketorolac (Toradol) Ketorolac (Toradol) 2020-04-04 Completed [facility] - per 15mg per 15mg 11:19:00 [facility] Ketorolac (Toradol) Ketorolac (Toradol) 2020-04-04 Completed [facility] - per 15mg per 15mg 11:19:00 [facility] Ketorolac (Toradol) Ketorolac (Toradol) 2020-04-04 Completed [facility] - per 15mg per 15mg 11:19:00 [facility] Ketorolac (Toradol) Ketorolac (Toradol) 2020-04-04 Completed [facility] - per 15mg per 15mg 11:19:00 [facility] Vitamin B12 Vitamin B12 2019-07-16 Completed [facility] - (Cyanocobalamin) (Cyanocobalamin) 13:54:00 [facility] Vitamin B12 Vitamin B12 2019-07-16 Completed [facility] - (Cyanocobalamin) (Cyanocobalamin) 13:54:00 [facility] Vitamin B12 Vitamin B12 2019-07-16 Completed [facility] (Cyanocobalamin) (Cyanocobalamin) 13:54:00 [facility] Vitamin B12 Vitamin B12 2019-07-16 Completed [facility] (Cyanocobalamin) (Cyanocobalamin) 13:54:00 [facility] Vitamin B12 Vitamin B12 2019-07-16 Completed [facility] (Cyanocobalamin) (Cyanocobalamin) 13:54:00 [facility] Vitamin B12 Vitamin B12 2019-07-16 Completed [facility] (Cyanocobalamin) (Cyanocobalamin) 13:54:00 [facility] Vitamin B12 Vitamin B12 2019-07-16 Completed [facility] (Cyanocobalamin) (Cyanocobalamin) 13:54:00 [facility] Vitamin B12 Vitamin B12 2019-07-16 Completed [facility] (Cyanocobalamin) (Cyanocobalamin) 13:54:00 [facility] Vitamin B12 Vitamin B12 2019-04-09 Completed [facility] (Cyanocobalamin) (Cyanocobalamin) 14:26:00 [facility] Vitamin B12 Vitamin B12 2019-04-09 Completed [facility] (Cyanocobalamin) (Cyanocobalamin) 14:26:00 [facility] Vitamin B12 Vitamin B12 2019-04-09 Completed [facility] (Cyanocobalamin) (Cyanocobalamin) 14:26:00 [facility] Vitamin B12 Vitamin B12 2019-04-09 Completed [facility] (Cyanocobalamin) (Cyanocobalamin) 14:26:00 [facility] Vitamin B12 Vitamin B12 2019-04-09 Completed [facility] (Cyanocobalamin) (Cyanocobalamin) 14::00 [facility] Vitamin B12 Vitamin B12 2019-04-09 Completed [facility] (Cyanocobalamin) (Cyanocobalamin) 14:26:00 [facility] Vitamin B12 Vitamin B12 2019-04-09 Completed [facility] (Cyanocobalamin) (Cyanocobalamin) 14::00 [facility] Vitamin B12 Vitamin B12 2019-04-09 Completed [facility] (Cyanocobalamin) (Cyanocobalamin) 14:26:00 [facility] Influenza (IM) 2018-04-21 Completed [facility] Influenza Virus 2018-04-21 Completed Universit y of Vaccine (3+ yrs) 00:00:00 [facility] dical Branch Influenza Virus 2018-04-21 Completed Universit y of Vaccine (3+ yrs) 00:00:00 [facility] dical Branch Influenza Virus 2018-04-21 Completed Universit y of Vaccine (3+ yrs) 00:00:00 [facility] dical Branch Pneumococcal 2016-05-08 Completed [facility] Conjugate 13-Valent 00:00:00 [facility] FLUCELVAX QUAD PF 2016-05-[address] 00:[facility]:00 [facility] Pneumococcal 13 2016-05-08 Completed Universit y of Conjugate, PCV13 00:00:00 [place] [facility] (Prevnar 13) Branch Pneumococcal 13 2016-05-08 Completed Universit y of Conjugate, PCV13 00:00:00 [place] [facility] (Prevnar 13) Branch Pneumococcal 13 2016-05-08 Completed Universit y of Conjugate, PCV13 00:00:00 [facility] dical (Prevnar 13) Branch Vital Signs Vital Name Observation Time Observation Value Comments Source Systolic blood 2021-11-16 18:59:00 111 mm[Hg] Univer sity [facility] Diastolic blood 2021-11-16 18:59:00 74 [facility]Hg[facility] 2021-11-16 18:59:00 75 /min [facility] Body temperature 2021-11-16 18:59:00 36.67 [facility] 2021-11-16 18:59:00 149.9 cm [facility] Body weight 2021-11-16 18:59:00 80.559 kg [facility] BMI 2021-11-16 18:59:00 35.87 kg/m2 [facility] height 2021-10-16 15:30:00 59 [in_i] [facility] weight 2021-10-16 15:30:00 176.5 [lb_av] [facility] temperature 2021-10-16 15:30:00 97.2 [degF] [facility] bmi 2021-10-16 15:30:00 35.64 kg/m2 [facility] oximetry 2021-10-16 15:30:00 100 % [facility] respiratory rate 2021-10-16 15:30:00 18 /min [facility] blood pressure 2021-10-16 15:30:00 123 mm[Hg] Common [facility] - systolic [facility] blood pressure 2021-10-16 15:30:00 65 mm[Hg] Common [facility] - diastolic [facility] height 2021-09-25 10:40:00 59 [in_i] [facility] weight 2021-09-25 10:40:00 190 [lb_av] [facility] temperature 2021-09-25 10:40:00 97.4 [degF] [facility] bmi 2021-09-25 10:40:00 38.37 kg/m2 [facility] blood pressure 2021-09-25 10:40:00 125 mm[Hg] [facility] blood pressure 2021-09-25 10:40:00 76 mm[Hg] [facility] diastolic [facility] HEIGHT 2021-09-02 15:44:00 149.9 cm WEIGHT 2021-09-02 15:44:00 87.091 kg HEIGHT 2021-09-02 15:44:00 149.9 cm WEIGHT 2021-09-02 15:44:00 87.091 kg HEIGHT 2021-09-02 15:44:00 149.9 cm WEIGHT 2021-09-02 15:44:00 87.091 kg height 2021-04-26 10:30:00 59 [in_i] Common [facility] weight 2021-04-26 10:30:00 215 [lb_av] [facility] temperature 2021-04-26 10:30:00 98 [degF] [facility] bmi 2021-04-26 10:30:00 43.42 kg/m2 [facility] blood pressure 2021-04-26 10:30:00 121 mm[Hg] [facility] blood pressure 2021-04-26 10:30:00 70 mm[Hg] [facility] diastolic [facility] height 2021-04-26 14:20:00 59 [in_i] Common [facility] weight 2021-04-26 14:20:00 215 [lb_av] [facility] temperature 2021-04-26 14:20:00 98 [degF] Common [facility] bmi 2021-04-26 14:20:00 43.42 kg/m2 [facility] S [facility] oximetry 2021-04-26 14:20:00 100 % Common S [facility] blood pressure 2021-04-26 14:20:00 121 mm[Hg] [facility] blood pressure 2021-04-26 14:20:00 70 mm[Hg] [facility] Systolic blood 2021-09-16 08:00:00 98 mm[Hg] [facility] Diastolic blood 2021-09-16 08:00:00 49 mm[Hg] [facility] Heart rate 2021-09-16 08:00:00 89 /min [facility] Body temperature 2021-09-16 08:00:[address] [facility] Respiratory rate 2021-09-16 08:00:00 18 /min [facility] Oxygen saturation in 2021-09-16 08:00:00 99 /min [facility] Arterial blood by Medical Ce nter Pulse oximetry Systolic blood 2021-09-11 19:42:00 125 mm[Hg] [facility] Diastolic blood 2021-09-11 19:42:00 60 mm[Hg] [facility] Heart rate 2021-09-11 19:42:00 98 /min [facility] Body temperature 2021-09-11 19:42:[address] [facility] Respiratory rate 2021-09-11 19:42:00 18 /min [facility] Oxygen saturation in 2021-09-11 19:42:00 100 /min [facility] Arterial blood by Medical Ce nter Pulse oximetry Body height 2021-09-02 15:44:00 149.9 cm [facility] Body weight 2021-09-02 15:44:00 87.091 kg [facility] BMI 2021-09-02 15:44:00 38.78 kg/m2 [facility] Systolic blood 2021-08-31 06:30:00 119 mm[Hg] [facility] pressure Diastolic blood 2021-08-31 06:30:00 68 mm[Hg] [facility] pressure Heart rate 2021-08-31 06:30:00 70 /min [facility] Respiratory rate 2021-08-31 06:30:00 16 /min [facility] Oxygen saturation in 2021-08-31 06:30:00 97 /min [facility] Arterial blood by Pulse oximetry Body temperature 2021-08-31 04:04:09 36.83 Georgette [facility] Body height 2021-08-31 04:04:00 149.9 cm [facility] Body weight 2021-08-31 04:04:00 89.359 kg [facility] BMI 2021-08-31 04:04:00 39.79 kg/m2 [facility] Procedures Procedure Date / Time Performing Clinician Source Performed EXTERNAL PROVIDER RECORDS 2022-02-08 05:01:00 Doctor Unassigned, No [facility] HEPATITIS A ANTIBODY, IGM 2022-01-23 15:13:00 [facility] HEPATITIS B SURFACE 2022-01-23 15:13:00 [facility] HEPATITIS B CORE ANTIBODY, 2022-01-23 15:13:00 [facility] HEPATITIS C ANTIBODY 2022-01-23 15:13:00 [facility] HEPATIC FUNCTION PANEL 2021-09-15 05:20:[address] [facility] CBC W/PLT COUNT & AUTO 2021-09-15 05:20:[address] [facility] PROTHROMBIN TIME/INR 2021-09-15 05:20:00 Niya Cartagena [facility] BASIC METABOLIC PANEL 2021-09-15 05:20:00 Niya Cartagena [facility] CBC W/PLT COUNT & AUTO 2021-09-15 05:20[facility]LV[facility] WITHOUT 2021-09-15 00:49:00 Kendy Hall CH I [facility] IV [facility] CBC W/PLT COUNT & AUTO 2021-09-14 08:36:00 [facility] W/[facility]T COUNT & AUTO 2021-09-14 08:36:[address] [facility] HEPATIC FUNCTION PANEL 2021-09-14 07:35:00 [facility]aim[facility] PROT[facility] TIME/INR 2021-09-14 07:35:00 Kaim, Niya White [facility] BASIC METABOLIC PANEL 2021-09-14 07:35:00 Kaim, Niya Cindy C [facility] HEPATIC FUNCTION PANEL 2021-09-13 07:14:00 Kaim, [facility] CBC W/PLT COUNT & AUTO 2021-09-13 07:14:[address] [facility] PROTHROMBIN TIME/INR 2021-09-13 07:14:00 Kaim, Niya White [facility] BASIC METABOLIC PANEL 2021-09-13 07:14:00 Kaim, Niyalilian Torrezison C [facility] CBC W/PLT COUNT & AUTO 2021-09-13 07:14:00 [facility] 2021-09-12 04:23:00 Kaim Ni[facility] CBC W/PLT COUNT & AUTO 2021-09-12 04:23:00 [facility] PROT[facility]/INR 2021-09-12 04:23:00 Kaim, Niya [facility] BASIC METABOLIC PANEL 2021-09-12 04:23:00 Kaim, Niya Cindy C [facility] MAGNESIUM 2021-09-12 04:23:[address] [facility] VITAMIN B12 2021-09-12 04:23:00 Danelle Bradley [facility] VITAMIN D, 25-HYDROXY 2021-09-12 04:23:00 [facility]IN 2021-09-12 04:23:00 [facility] CBC W/PLT COUNT & AUTO 2021-09-12 04:23:00 Lizzjag Niya [facility] HEPATIC FUNCTION PANEL 2021-09-11 05:33:00 Kaim Niya [facility] CBC W/PLT COUNT & AUTO 2021-09-11 05:33:00 Kaim [facility] PROT[facility]/INR 2021-09-11 05:33:00 KaNiya rm [facility] BASIC METABOLIC PANEL 2021-09-11 05:33:00 KaimNyiaison C [facility] MAGNESIUM 2021-09-11 05:33:00 Selma Lu [facility] CBC W/PLT COUNT & AUTO 2021-09-11 05:33:00 [facility]aim [facility]EL 2021-09-10 06:52:00 Kaim Niya [facility] CBC W/PLT COUNT & AUTO 2021-09-10 06:52:00 Mitzi Niya [facility] PROTHROMBIN TIME/INR 2021-09-10 06:52:00 KaNiya rm [facility] BASIC METABOLIC PANEL 2021-09-10 06:52:00 Kaim Niya Cindy C [facility] MAGNESIUM 2021-09-10 06:52:[address] [facility] CBC W/PLT COUNT & AUTO 2021-09-10 06:52:00 Kaim Niya [facility] HEPATIC FUNCTION PANEL 2021-09-09 05:51:00 KaimNiya [facility] CBC W/PLT COUNT & AUTO 2021-09-09 05:51:[address] [facility] PROTHROMBIN TIME/INR 2021-09-09 05:51:00 Niya Cartagena [facility] BASIC METABOLIC PANEL 2021-09-09 05:51:00 Niya Cartagena [facility] CBC W/PLT COUNT & AUTO 2021-09-09 05:51:[address] [facility] (CELLAVISION MANUAL DIFF) 2021-09-09 05:51:00 Niya Cartagena [facility] AMMONIA 2021-09-08 10:54:[address] [facility] PHOSPHORUS 2021-09-08 05:14:00 Isabella [facility] HEPATIC FUNCTION PANEL 2021-09-08 05:14:00 [facility] CBC W/PLT COUNT & AUTO 2021-09-08 05:14:[address] [facility] PROTHROMBIN TIME/INR 2021-09-08 05:14:00 Niya Cartagena [facility] BASIC METABOLIC PANEL 2021-09-08 05:14:00 Niya Cartagena [facility] CBC W/PLT COUNT & AUTO 2021-09-08 05:14:[address] [facility] (CELLAVISION MANUAL DIFF) 2021-09-08 05:14:00 Niya Cartagena [facility] PHOSPHORUS 2021-09-07 05:37:00 Isabella, [facility] HEPATIC FUNCTION PANEL 2021-09-07 05:37:00 [facility] CBC W/PLT COUNT & AUTO 2021-09-07 05:37:00 [facility] PROT[facility]/INR 2021-09-07 05:37:00 Niya Cartagena [facility] BASIC METABOLIC PANEL 2021-09-07 05:37:00 Niya Cartagena [facility] CBC W/PLT COUNT & AUTO 2021-09-07 05:37:[address] [facility] (CELLAVISION MANUAL DIFF) 2021-09-07 05:37:[address] [facility] PROTHROMBIN TIME/INR 2021-09-06 06:37:00 Niya Cartagena [facility] BASIC METABOLIC PANEL 2021-09-06 06:37:00 Isabella, Mrinalini CH [facility] PHOSPHORUS 2021-09-06 06:37:00 Isabella, Mrinalini [facility] PROTHROMBIN TIME/INR 2021-09-05 14:31:00 Niya Cartagenaison [facility] BASIC METABOLIC PANEL 2021-09-05 14:31:00 Isabella, Mrinalini CH [facility] PHOSPHORUS 2021-09-05 14:31:00 Isabella, Mrinalini [facility] CBC W/PLT COUNT & AUTO 2021-09-05 14:31:00 Gianna Masonnalini C [facility] HEPATIC FUNCTION PANEL 2021-09-05 14:31:00 Gianna Masonnalini C [facility] CBC W/PLT COUNT & AUTO 2021-09-05 14:31:00 Gianna Masonnalini C [facility] (CELLAVISION MANUAL DIFF) 2021-09-05 14:31:00 Isabella, Mrinalin i [facility] C. DIFFICILE GDH TOXIN 2021-09-04 11:52:[address] [facility] CT ABDOMEN/PELVIS WITH IV 2021-09-04 09:03:[address] [facility] CT CHEST WITH IV CONTRAST 2021-09-04 09:03:00 Isabella Mrinalin i [facility] CBC W/PLT COUNT & AUTO 2021-09-04 04:39:[address] [facility] COMPREHENSIVE METABOLIC 2021-09-04 04:39:[address] [facility] MAGNESIUM 2021-09-04 04:39:[address] [facility] PHOSPHORUS 2021-09-04 04:39:[address] [facility] CBC W/PLT COUNT & AUTO 2021-09-04 04:39:[address] [facility] (CELLAVISION MANUAL DIFF) 2021-09-04 04:39:[address] [facility] HEPATITIS A ANTIBODY, IGG 2021-09-03 12:02:00 Gianna Masonnalin i [facility] HEPATITIS B CORE ANTIBODY, 2021-09-03 12:02:00 Juve Masoni ni [facility] TOTAL [facility] HEPATITIS B SURFACE 2021-09-03 12:02:00 [facility] ANTIBODY [facility] HEPATITIS B SURFACE 2021-09-03 12:02:00 [facility]abella [facility] ANTIGEN [facility] HEPATITIS C ANTIBODY 2021-09-03 12:02:00 Gianna Masonnalini [facility] CBC W/PLT COUNT & AUTO 2021-09-03 12:01:[address] [facility] COMPREHENSIVE METABOLIC 2021-09-03 12:01:[address] [facility] MAGNESIUM 2021-09-03 12:01:[address] [facility] PHOSPHORUS 2021-09-03 12:01:[address] [facility] PROTHROMBIN TIME/INR 2021-09-03 12:01:00 Jr White [facility] CBC W/PLT COUNT & AUTO 2021-09-03 12:01:[address] [facility] (CELLAVISION MANUAL DIFF) 2021-09-03 12:01:[address] [facility] BLOOD CULTURE 2021-09-03 11:59:00 Nia Lawrence [facility] OVA AND PARASITE 2021-09-02 09:44:00 [facility] PATHOGEN PROFILE BY PCR 2021-09-02 09:44:[address] Troy Aw[address]adimir il [facility] BLOOD CULTURE 2021-09-02 06:03[facility] & AUTO 2021-09-02 06:03:[address] [facility] COMPREHENSIVE METABOLIC 2021-09-02 06:03:[address] [facility] MAGNESIUM 2021-09-02 06:03:[address] [facility] PHOSPHORUS 2021-09-02 06:03:00 Nia Lawrence [facility] C-REACTIVE PROTEIN 2021-09-02 06:03:00 Nia Lawrence [facility] CBC W/PLT COUNT & AUTO 2021-09-02 06:03:[address] [facility] (CELLAVISION MANUAL DIFF) 2021-09-02 06:03:00 Nia Lawrence [facility] IRON, TIBC, % SAT. 2021-09-02 06:01:00 Nia Lawrence [facility] (WITHOUT FERRITIN) [facility] VITAM[facility] B12 AND FOLATE 2021-09-02 06:01:00 Nia Lawrence [facility] CT BRAIN WITHOUT IV 2021-09-02 02:39:00 Nia Lawrencessa [facility] CONTRAST [facility] US ABDOMEN LIMITED 2021-09-02 02:09:00 [facility]INE [facility] 2021-09-02 01:29:00 [facility]/ REFLEX URINE 2021-09-02 01:29:00 Nia Lawrence [facility] CULTURE [facility] XR CHEST 1 VIEW PORTABLE / 2021-09-02 01:02:00 Nia Lawrence [facility] BEDSIDE [facility] CBC W/PLT COUNT & AUTO 2021-09-01 22:55:[address] [facility] LACTIC ACID, VENOUS 2021-09-01 22:55:[address] [facility] PT/APTT 2021-09-01 22:55:[address] [facility] HEPATIC FUNCTION PANEL 2021-09-01 22:55:[address] [facility] BASIC METABOLIC PANEL 2021-09-01 22:55:00 Nia Lawrence [facility] MAGNESIUM 2021-09-01 22:55:[address] [facility] PHOSPHORUS 2021-09-01 22:55:[address] [facility] CBC W/PLT COUNT & AUTO 2021-09-01 22:55:[address] [facility] (CELLAVISION MANUAL DIFF) 2021-09-01 22:55:[address] [facility] POCT-GLUCOSE METER 2021-09-01 22:36:00 Dawna Anguiano [facility] CT ABDOMEN PELVIS WO 2021-08-31 05:50:00 [facility] COMPLETE BLD COUNT 2021-08-31 04:21:00 AdaliMoises dougherty [facility] W/AUTO DIFF [facility] COMPREHENSIVE METABOLIC 2021-08-31 04:21:00 Moises Bro [facility] PANEL [facility] LACTIC ACID, I-STAT 2021-08-31 04:21:00 Moises Bro [facility] ESTIMATED GFR 2021-08-31 04:21:00 Moises Bro [facility] [place] SPIROMETRY, DIFFUSION, 2021-08-25 19:27:26 [facility] LUNG VOLUMES, MIPS/MEPS XR CHEST 2 VW 2021-08-25 18:00:[facility] 2021-08-25 17:59[facility]56 [facility] POC GLU[facility]SE 2021-08-25 13:51:00 Jennifer Ghosh Ho spital SALEEM-POSEY VIRUS 2021-08-25 11:08:00 [facility] ANTIBODY TEST HC COMPLETE BLD COUNT 2021-08-25 11:08:[address] [facility] W/AUTO DIFF COMPREHENSIVE METABOLIC 2021-08-25 11:08:00 [facility] PANEL PROTHROMBIN TIME WITH INR 2021-08-25 11:08:00 Jennifer Ghosh [facility] ESTIMATED GFR 2021-08-25 11:08:00 Jennifer Ghosh spital POC GLUCOSE 2021-08-25 03:18:00 Davina [facility] spital POC GLUCOSE 2021-08-25 00:22:00 Davina Jennifergeorge Corley spital POC GLUCOSE 2021-08-24 19:43:00 [facility] CREATININE LEVEL, URINE, 2021-08-24 18:13:00 Davina Jennifer [facility] TIMED PROTEIN, URINE, TIMED 2021-08-24 18:13:00 [facility] SELECTIVE CORONARY 2021-08-24 16:44:00 Sri [facility] ANGIOGRAPHY [place] HC COMPLETE BLD COUNT 2021-08-24 11:01:00 [facility] W/AUTO DIFF [facility] BASIC METABOLIC PANEL 2021-08-24 11:01:00 [facility] HEPATIC FUNCTION PANEL 2021-08-24 11:01:00 [facility] MAGNESIUM LEVEL 2021-08-24 11:01:00 Ting PiersonJory vo [facility] PROTHROMBIN TIME WITH INR 2021-08-24 11:01:00 [facility] ESTIMATED GFR 2021-08-24 11:01:00 Jory Girard [facility] POC GLUCOSE 2021-08-24 03:07:00 Jennifer Ghoshtal POC GLUCOSE 2021-08-24 00:11:00 Jennifer Ghosh COVID-19 QUALITATIVE 2021-08-23 22:15:00 Dayo Moeller [facility] RT-PCR POC GLUCOSE 2021-08-23 19:17:00 Jennifer Ghoshtal POC GLUCOSE 2021-08-23 14:05:00 Jennifer Ghosh HC COMPLETE BLD COUNT 2021-08-23 11:49:00 [facility] W/AUTO DIFF [facility] BASIC METABOLIC PANEL 2021-08-23 11:49:00 [facility] HEPATIC FUNCTION PANEL 2021-08-23 11:49:00 [facility] MAGNESIUM LEVEL 2021-08-23 11:49:00 Jory Girard [facility] PROTHROMBIN TIME WITH INR 2021-08-23 11:49:00 [facility] ALPHA FETOPROTEIN 2021-08-23 11:49:00 [facility] ALPHA-1 ANTITRYPSIN LEVEL 2021-08-23 11:49:00 [facility] ANTI SMOOTH MUSCLE AB 2021-08-23 11:49:00 [facility] SCREEN C-REACTIVE PROTEIN 2021-08-23 11:49:00 [facility] CANCER ANTIGEN 125 2021-08-23 11:49:00 [facility] CANCER ANTIGEN 19-9 2021-08-23 11:49:00 [facility] CARCINOEMBRYONIC ANTIGEN 2021-08-23 11:49:00 [facility] (CEA) CERULOPLASMIN LEVEL 2021-08-23 11:49:00 [facility] CORTISOL LEVEL, RANDOM 2021-08-23 11:49:00 [facility] CORTISOL, FREE BY 2021-08-23 11:49:00 [facility] ED/LC-MS/MS CYTOMEGALOVIRUS AB, IGG 2021-08-23 11:49:00 [facility] CYTOMEGALOVIRUS AB, IGM 2021-08-23 11:49:00 [facility] DRUG KIM 9, SER/THAIS, SCRN 2021-08-23 11:49:00 [facility] W/RFLX TO CONF FERRITIN LEVEL 2021-08-23 11:49:00 [facility] FIBRINOGEN 2021-08-23 11:49:00 [facility] HEPATITIS A ANTIBODY IGM 2021-08-23 11:49:00 [facility] HEPATITIS A ANTIBODY TOTAL 2021-08-23 11:49:00 [facility] HEPATITIS B CORE ANTIBODY 2021-08-23 11:49:00 [facility] TOTAL HEPATITIS B SURFACE 2021-08-23 11:49:00 [facility] ANTIBODY HEPATITIS B SURFACE 2021-08-23 11:49:00 [facility] ANTIGEN HEPATITIS C ANTIBODY 2021-08-23 11:49:00 [facility] HIV AG/AB COMBINATION 2021-08-23 11:49:00 [facility] HIV-1 RNA, QUALITATIVE TMA 2021-08-23 11:49:00 [facility] HLA TRANSPLANT EVALUATION 2021-08-23 11:49:00 [facility] LIPID PANEL 2021-08-23 11:49:00 [facility] BARBITURATES, S/P, QUANT 2021-08-23 11:49:00 [facility] PARTIAL THROMBOPLASTIN 2021-08-23 11:49:00 [facility] TIME (PTT) PHOSPHATIDYLETHANOL, BLOOD 2021-08-23 11:49:00 [facility] PHOSPHORUS LEVEL 2021-08-23 11:49:00 [facility] PREALBUMIN LEVEL 2021-08-23 11:49:00 [facility] SERUM ELECTROPHORESIS 2021-08-23 11:49:00 [facility] SYPHILIS TREPONEMA SCREEN 2021-08-23 11:49:00 [facility] WITH RPR CONFIRMATION (REVERSE ALGORITHM) T3, FREE 2021-08-23 11:49:00 [facility] TB T-SPOT 2021-08-23 11:49:00 [facility] TOTAL IRON BINDING 2021-08-23 11:49:00 [facility] CAPACITY ZINC LEVEL, SERUM 2021-08-23 11:49:00 [facility] ESTIMATED GFR 2021-08-23 11:49:00 Jory Girard [facility] SINGLE ANTIGEN BEADS 2021-08-23 11:49:00 [facility] C1Q CLASS 1 & 2 ANTIBODY 2021-08-23 11:49:00 [facility] CT CHEST WO CONTRAST 2021-08-23 04:25:00 [facility] POC GLUCOSE 2021-08-23 02:55:00 Jennifer Ghosh Ho yusuftal US CAROTID DUPLEX 2021-08-23 02:40:00 [facility] BILATERAL TTE COMPLETE, WO CONTRAST, 2021-08-22 23:47:00 [facility] W AGITATED SALINE ([id number]) US ABDOMEN COMPLETE 2021-08-22 22:30:00 [facility] ECG 12-LEAD 2021-08-22 21:31:09 [facility] POC GLUCOSE 2021-08-22 13:43:00 Jennifer Ghosh Ho spital HC COMPLETE BLD COUNT 2021-08-22 10:59:00 Ting Dangelo [facility]/AUTO DIFF [facility] BASIC METABOLIC PANEL 2021-08-22 10:59:00 Ting Dangelo [facility] HEPATIC FUNCTION PANEL 2021-08-22 10:59:00 [facility] MAGNESIUM LEVEL 2021-08-22 10:59:00 Jory Girard spital [facility] PHOSPHORUS LEVEL 2021-08-22 10:59:00 Jory Girard ospital [facility] PROTHROMBIN TIME WITH INR 2021-08-22 10:59:00 [facility] 2021-08-22 10:59:00 Jory Girard spital [facility] POC GLUCOSE 2021-08-22 03:06:00 Jennifer Ghosh spital POC GLUCOSE 2021-08-22 00:27:00 Jennifer Ghosh spital POC GLUCOSE 2021-08-21 19:09:00 Jennifer Ghosh spital POC GLUCOSE 2021-08-21 13:46:00 Jory Girard spital [facility] HC COMPLETE BLD COUNT 2021-08-21 10:56:00 Ting Pierson [facility]/AUTO DIFF [facility] BASIC METABOLIC PANEL 2021-08-21 10:56:00 Ting Pierson [facility] HEPATIC FUNCTION PANEL 2021-08-21 10:56:00 [facility] MAGNESIUM LEVEL 2021-08-21 10:56:00 Jory Girard spital [facility] PHOSPHORUS LEVEL 2021-08-21 10:56:00 Jory Girard ospital [facility] PROTHROMBIN TIME WITH INR 2021-08-21 10:56:00 [facility] ESTIMATED GFR 2021-08-21 10:56:00 Jory Girard spital [facility] POC GLUCOSE 2021-08-21 03:20:00 Jory Girard spital [facility] POC GLUCOSE 2021-08-20 14:56:00 DavinaJennifer [facility] HC COMPLETE BLD COUNT 2021-08-20 10:57:00 Ting Pierson [facility] W/AUTO DIFF [facility] BASIC METABOLIC PANEL 2021-08-20 10:57:00 Ting Pierson [facility] HEPATIC FUNCTION PANEL 2021-08-20 10:57:00 [facility] MAGNESIUM LEVEL 2021-08-20 10:57:00 Jory Girard spital [facility] PHOSPHORUS LEVEL 2021-08-20 10:57:00 Jory Girard ospital [facility] PROTHROMBIN TIME WITH INR 2021-08-20 10:57:00 [facility] 2021-08-20 10:57:00 Jory Girard spital [facility] POC GLUCOSE 2021-08-20 02:42:00 Jory Girard spital [facility] POC GLUCOSE 2021-08-19 20:04:00 Jory Girard spital [facility] HC COMPLETE BLD COUNT 2021-08-19 11:38:00 Ting Pierson [facility]/AUTO DIFF [facility] BASIC METABOLIC PANEL 2021-08-19 11:38:00 Ting Pierson [facility] HEPATIC FUNCTION PANEL 2021-08-19 11:38:00 [facility] MAGNESIUM LEVEL 2021-08-19 11:38:00 Jory Girard spital [facility] PHOSPHORUS LEVEL 2021-08-19 11:38:00 Jory Girard ospital [facility] PROTHROMBIN TIME WITH INR 2021-08-19 11:38:00 [facility] ESTIMATED [facility]FR 2021-08-19 11:38:00 Jory Girard spital [facility] POC GLUCOSE 2021-08-19 03:14:00 Jory Girard spital [facility] POC GLUCOSE 2021-08-18 23:30:00 Jory Girard POC GLUCOSE 2021-08-18 15:37:00 Jory Girard shane Self URINE CULTURE 2021-08-18 12:53:00 Jory Girard URINALYSIS SCREEN AND 2021-08-18 11:31:00 [facility] MICROSCOPY, WITH REFLEX TO [facility] CULTURE LACTIC ACID LEVEL, SEPSIS 2021-08-18 10:21:00 Orlando Balderrama [facility] - NOW AND REPEAT 2X EVERY 3 HOURS HC COMPLETE BLD COUNT 2021-08-18 10:21:00 [facility] W/AUTO DIFF [facility] BASIC METABOLIC PANEL 2021-08-18 10:21:00 [facility] HEPATIC FUNCTION PANEL 2021-08-18 10:21:00 [facility] MAGNESIUM LEVEL 2021-08-18 10:21:00 Jory Girard [facility] PHOSPHORUS LEVEL 2021-08-18 10:21:00 Ting Jory Pierson ospimateo [facility] PROTHROMBIN TIME WITH INR 2021-08-18 10:21:00 [facility] ESTIMATED GFR 2021-08-18 10:21:00 Jory Girard [facility] LACTIC ACID LEVEL, SEPSIS 2021-08-18 07:56:00 Orlando Balderrama [facility] - NOW AND REPEAT 2X EVERY 3 HOURS BLOOD CULTURE, AEROBIC & 2021-08-18 05:00:00 [facility] ANAEROBIC [facility] ECG 12-LEAD 2021-08-18 04:24:58 Ji [facility] CT ABDOMEN PELVIS WO 2021-08-18 04:19:03 [facility] HEAD WO CONTRAST 2021-08-18 04:18:21 [facility] LACTIC ACID LEVEL, SEPSIS 2021-08-18 03:37:00 Conchis [facility] - NOW AND REPEAT 2X EVERY 3 HOURS B NATRIURETIC PEPTIDE 2021-08-18 03:37:00 [facility] PROTHROMBIN TIME WITH INR 2021-08-18 03:20:00 [facility] AMMONIA LEVEL 2021-08-18 03:20:00 [facility] TROPONIN T 2021-08-18 03:20:00 [facility] XR CHEST 1 VW PORTABLE 2021-08-18 03:14:19 [facility] HC COMPLETE BLD COUNT 2021-08-18 03:03:00 [facility] W/AUTO DIFF COMPREHENSIVE METABOLIC 2021-08-18 03:03:00 [facility] PANEL ESTIMATED GFR 2021-08-18 03:03:00 [facility] RESPIRATORY PATHOGEN PANEL 2021-08-18 03:03:00 [facility] WITH COVID-19 RT-PCR ECG ED PRELIMINARY 2021-08-18 02:54:33 [facility] INTERPRETATION COVID-19 QUALITATIVE 2021-08-11 05:31:00 [facility] RT-PCR [facility] COMPREHENSIVE METABOLIC 2021-08-11 05:30:00 [facility] PANEL [facility] HC COMPLETE BLD COUNT 2021-08-11 05:30:00 [facility] W/AUTO DIFF [facility] LACTIC ACID, I-STAT 2021-08-11 05:30:00 [facility] ESTIMATED GFR 2021-08-11 05:30:00 [facility] ECG 12-LEAD 2021-08-11 05:15:35 [facility] URINALYSIS 2021-08-11 05:00:[address] [facility] XR CHEST 1 VW PORTABLE 2021-08-11 04:27:[address] [facility] [place] LACTIC ACID, I-STAT 2021-06-28 22:37:00 Romero Limon [facility] URINALYSIS 2021-06-28 21:45:00 Romero Limon [facility] HC COMPLETE BLD COUNT 2021-06-28 20:01:00 Romero Limon [facility] W/AUTO DIFF PROTHROMBIN TIME WITH INR, 2021-06-28 20:01:00 Romero Limon [facility] I-STAT COMPREHENSIVE METABOLIC 2021-06-28 20:01:00 Romero Limon [facility] PANEL LACTIC ACID, I-STAT 2021-06-28 20:01:00 Romero Limon [facility] SEDIMENTATION RATE 2021-06-28 20:01:00 Romero Limon [facility] ESTIMATED GFR 2021-06-28 20:01:00 Romero Limon [facility] COVID-19 QUALITATIVE 2021-06-28 20:01:00 Romero Limon [facility] RT-PCR BLOOD CULTURE, AEROBIC & 2021-06-28 20:01:00 Romero Limon [facility] ANAEROBIC HC COMPLETE BLD COUNT 2021-06-21 11:20:00 [facility]/AUTO DIFF [place] BASIC METABOLIC PANEL 2021-06-21 11:20:00 Dinakar [facility] [place] HEPATIC FUNCTION PANEL 2021-06-21 11:20:00 Dinholleyr [facility] MAGNESIUM LEVEL 2021-06-21 11:20:00 Pierce Marshall [facility] PROTHROMBIN TIME WITH INR 2021-06-21 11:20:00 [facility] PHOSPHORUS LEVEL 2021-06-21 11:20:00 Pierce Marshall [facility] ESTIMATED GFR 2021-06-21 11:20:00 Dinakar, Pierce Cisneros PHOSPHATIDYLETHANOL, BLOOD 2021-06-21 11:20:00 [facility] URINE DRUGS OF ABUSE 2021-06-21 10:11:00 [facility] SCREEN URINALYSIS SCREEN AND 2021-06-21 10:10:00 [facility] MICROSCOPY, WITH REFLEX TO CULTURE URINE CULTURE 2021-06-21 10:10:00 [facility] COVID-19 SEROLOGY PATIENT 2021-06-20 17:52:00 Dinakar, [facility] SURVEILLANCE [facility] COVID-19 ANTI-SPIKE IGG 2021-06-20 17:52:00 Dinakar, [facility] ANTIBODY TITER [facility] HC COMPLETE BLD COUNT 2021-06-20 11:03:00 Dinakar, [facility] W/AUTO DIFF [facility] BASIC METABOLIC PANEL 2021-06-20 11:03:00 Dinakar, [facility] HEPATIC FUNCTION PANEL 2021-06-20 11:03:00 Dinakar, [facility] MAGNESIUM LEVEL 2021-06-20 11:03:00 Dinholleyr, Pierce lynn [place] PROTHROMBIN TIME WITH INR 2021-06-20 11:03:00 Dinakar, [facility] PHOSPHORUS LEVEL 2021-06-20 11:03:00 Jorge LrPierce ospital [place] ESTIMATED GFR 2021-06-20 11:03:00 Dinakar, Pierce Corley shane Cisneros XR ABDOMEN 1 VW PORTABLE 2021-06-20 00:11:00 [facility] AMMONIA LEVEL 2021 11:27:00 Jennifer Ghosh shane HC COMPLETE BLD COUNT 2021 11:24:00 [facility] W/[facility]O DIFF PROTHROMBIN TIME WITH INR 2021 11:24:00 Jennifer Ghosh [facility] COMPREHENSIVE METABOLIC 2021 11:24:00 Davina [facility] PANEL PHOSPHORUS LEVEL 2021 11:24:00 [facility] MAGNESIUM LEVEL 2021 11:24:00 Stanislaw Ghoshuang [facility] HEMOGLOBIN A1C 2021 11:24:00 StanislawJennifer [facility] THYROID STIMULATING 2021 11:24:00 [facility] HORMONE T4 2021 11:24:00 DavinaStanislawJennifer [facility] VITAMIN D 25 HYDROXY LEVEL 2021 11:24:00 [facility] ESTIMATED GFR 2021 11:24:00 DavinaStanislawJennifer [facility] spital LACTIC ACID, I-STAT 2021 01:31:00 [facility] COVID-19 QUALITATIVE 2021 01:21:00 Diana Bangura [facility] RT-PCR CLOSTRIDIUM DIFFICILE 2021 00:30:00 Diana [facility]ura[facility] TOXIN ENTERIC BACTERIAL PANEL 2021 00:30:00 [facility] 2021 00:09:00 Diana Bangura [facility] METABOLIC 2021-06-18 22:51:00 [facility] PANEL AMYLASE LEVEL 2021-06-18 22:51:00 Diana Bangura Bin [facility] ESTIMATED GFR 2021-06-18 22:51:00 Diana Bangura Bin [facility] HC COMPLETE BLD COUNT 2021-06-18 21:51:00 Diana Bangura [facility] W/AUTO DIFF COMPREHENSIVE METABOLIC 2021-06-18 21:51:00 Diana Bangura [facility] PANEL LACTIC ACID, I-STAT 2021-06-18 21:51:00 [facility] AMYLASE LEVEL 2021-06-18 21:51:00 Diana Bangura [facility] ESTIMATED GFR 2021-06-18 21:51:00 Diana Bangura [facility] AMMONIA LEVEL 2021-06-18 21:47:00 Diana Bangura [facility] HC COMPLETE BLD COUNT 2021-06-02 09:45:00 [facility] W/AUTO DIFF PROTHROMBIN TIME WITH INR 2021-06-02 09:45:00 [facility] BASIC METABOLIC PANEL 2021-06-02 09:45:00 [facility] HEPATIC FUNCTION PANEL 2021-06-02 09:45:00 [facility] PHOSPHORUS LEVEL 2021-06-02 09:45:00 [facility] MAGNESIUM LEVEL 2021-06-02 09:45:00 [facility] ospital ESTIMATED GFR 2021-06-02 09:45:00 [facility] ospital US ABDOMINAL LIMITED 2021-06-01 21:06:20 Joana Ling [facility] VENIPUNC NEED PHYS 2021-06-01 14:32:45 Linda Torres [facility] SKILL,DX OR RX HC COMPLETE BLD COUNT 2021-06-01 10:30:00 [facility] W/AUTO DIFF PROTHROMBIN TIME WITH INR 2021-06-01 10:30:00 [facility] BASIC METABOLIC PANEL 2021-06-01 10:30:00 [facility] HEPATIC FUNCTION PANEL 2021-06-01 10:30:00 [facility] PHOSPHORUS LEVEL 2021-06-01 10:30:00 [facility] MAGNESIUM LEVEL 2021-06-01 10:30:00 [facility] ospital HEMOGLOBIN A1C 2021-06-01 10:30:00 [facility] ospital THYROID STIMULATING 2021-06-01 10:30:00 [facility] HORMONE T4 2021-06-01 10:30:00 [facility] ospital VITAMIN D 25 HYDROXY LEVEL 2021-06-01 10:30:00 [facility] ZINC LEVEL, SERUM 2021-06-01 10:30:00 [facility] ALPHA FETOPROTEIN 2021-06-01 10:30:00 [facility] AMMONIA LEVEL 2021-06-01 10:30:00 [facility] ospital ESTIMATED GFR 2021-06-01 10:30:00 [facility] ospital PHOSPHATIDYLETHANOL, BLOOD 2021-06-01 10:30:00 [facility] URINE CULTURE 2021-06-01 02:48:00 [facility] BLOOD CULT[facility], AEROBIC & 2021-06-01 02:43:00 [facility] ANAEROBIC BLOOD CULTURE, AEROBIC & 2021-06-01 02:42:00 [facility] ANAEROBIC URINALYSIS SCREEN AND 2021-06-01 02:40:00 [facility] MICROSCOPY, WITH REFLEX TO CULTURE URINE DRUGS OF ABUSE 2021-06-01 02:40:00 [facility] SCREEN URIC ACID LEVEL 2021-06-01 02:38:00 [facility] PROTHR[facility] TIME WITH INR 2021-06-01 02:38:00 [facility] PHOSPHORUS LEVEL 2021-06-01 02:38:00 [facility] PARTIAL THROMBOPLASTIN 2021-06-01 02:38:00 [facility] TIME (PTT) MAGNESIUM LEVEL 2021-06-01 02:38:00 [facility] HEPATIC FUNCTION PANEL 2021-06-01 02:38:00 [facility] LDH 2021-06-01 02:38:[address] [facility] ospital LACTIC ACID LEVEL 2021-06-01 02:38:00 [facility] FIBRINOGEN 2021-06-01 02:38:00 [facility] ospital HC COMPLETE BLD COUNT 2021-06-01 02:38:00 [facility] W/AUTO DIFF BASIC METABOLIC PANEL 2021-06-01 02:38:00 [facility] L[facility] 2021-06-01 02:38:00 Chela [facility] ESTIMATED GFR 2021-06-01 02:38:00 Chela [facility] ospital COVID-19 SEROLOGY PATIENT 2021-06-01 02:38:00 Chela [facility] SURVEILLANCE COVID-19 ANTI-SPIKE IGG 2021-06-01 02:38:00 Chela [facility] ANTIBODY TITER ECG 12-LEAD 2021-06-01 01:06:10 Heriberto [place] ospital XR ABDOMEN 1 VW PORTABLE 2021-06-01 01:06:00 Chela [facility] XR CHEST 1 VW PORTABLE 2021-06-01 01:02:00 Chela [facility] COVID-19 QUALITATIVE 2021-06-01 00:37:00 Chela [facility] RT-PCR HC COMPLETE BLD COUNT 2021-05-27 10:09:00 [facility] W/AUTO DIFF [facility] BASIC METABOLIC PANEL 2021-05-27 10:09:00 [facility] HEPATIC FUNCTION PANEL 2021-05-27 10:09:00 [facility] MAGNESIUM LEVEL 2021-05-27 10:09:00 Jory Girard PHOSPHORUS LEVEL 2021-05-27 10:09:00 Jory Girard PROTHROMBIN TIME WITH INR 2021-05-27 10:09:00 [facility] ESTIMATED GFR 2021-05-27 10:09:00 Jory Girard VENOUS BLOOD GAS 2021-05-26 23:37:00 Ramin, Nia Ballard COMPLETE BLD COUNT 2021-05-26 09:02:00 [facility] W/AUTO DIFF [facility] PROTHROMBIN TIME WITH INR 2021-05-26 09:02:00 [facility]-19 SEROLOGY PATIENT 2021-05-26 09:02:00 Abe Partida [facility] SURVEILLANCE Tom SMEAR REVIEW 2021-05-26 09:02:00 Jory Girard PHOSPHATIDYLETHANOL, BLOOD 2021-05-26 09:02:00 Palak May[facility] COVID-19 ANTI-SPIKE IGG 2021-05-26 09:02:00 Abe Partida [facility] ANTIBODY TITER Tom BASIC METABOLIC PANEL 2021-05-26 09:00:00 [facility] HEPATIC FUNCTION PANEL 2021-05-26 09:00:00 Ting RizviFormerly [facility] [place] MAGNESIUM LEVEL 2021-05-26 09:00:00 Jory Girard PHOSPHORUS LEVEL 2021-05-26 09:00:00 Jory Girard ALPHA FETOPROTEIN 2021-05-26 09:00:[address] [facility] ZINC LEVEL, SERUM 2021-05-26 09:00:[facility] 2021-05-26 09:00:00 Jory Girard URINALYSIS SCREEN AND 2021-05-25 23:41:00 [facility] MICROSCOPY, WITH REFLEX TO [facility] CULTURE URINE DRUGS OF ABUSE 2021-05-25 23:41:00 [facility] SCREEN [place] URINE CULTURE 2021-05-25 23:41:00 Jory Girard US HEPATIC 2021-05-25 20:43:26 Jory Girard US ABDOMINAL DOPPLER 2021-05-25 20:40:00 [facility] [facility] COMPLETE BLD COUNT 2021-05-25 18:10:00 Ting Dangelo [facility] W/AUTO DIFF [facility] SMEAR REVIEW 2021-05-25 18:10:00 Jory Girardtal [facility] VENIPUNC NEED PHYS 2021-05-25 15:59:39 Tristin Hunt [facility] SKILL,DX OR RX CBC WITH PLATELET AND 2021-05-25 13:57:00 [facility] DIFFERENTIAL [facility] COMPREHENSIVE METABOLIC 2021-05-25 13:57:00 [facility] PANEL [facility] ESTIMATED GFR 2021-05-25 13:57:00 Jory Girard [facility] LACTIC ACID, I-STAT 2021-05-25 00:58:00 Romero Limon [facility] COVID-19 QUALITATIVE 2021-05-25 00:00:00 Romero Limon [facility] RT-PCR CT ABDOMEN PELVIS WO 2021-05-24 23:16:57 Romero Limon [facility] CONTRAST URINALYSIS 2021-05-24 22:19:00 Romero Limon HC COMPLETE BLD COUNT 2021-05-24 22:13:00 Romero Limon [facility] W/AUTO DIFF COMPREHENSIVE METABOLIC 2021-05-24 22:13:00 Romero Limon [facility] PANEL AMYLASE LEVEL 2021-05-24 22:13:00 Romero Limon LACTIC ACID, I-STAT 2021-05-24 22:13:00 Romero Limon [facility] ESTIMATED GFR 2021-05-24 22:13:00 Romero Limon BLOOD CULTURE, AEROBIC & 2021-05-24 22:00:00 Romero Limon [facility] ANAEROBIC CBC HEMOGRAM 2020-11-23 05:55:00 Jory Girard PROTHROMBIN TIME WITH INR 2020-11-23 05:55:00 [facility]OL[facility] 2020-11-23 05:55:00 [facility] PANEL [facility] ESTIMATED GFR 2020-11-23 05:55:00 Jory Girard spital [facility] COVID-19 QUALITATIVE 2020-11-23 01:57:00 Wild Kovacs [facility] RT-PCR Tomiwa LACTIC ACID, I-STAT 2020-11-23 01:40:00 Romero Limon [facility] CT HEAD WO CONTRAST 2020-11-22 23:20:00 Romero Limon [facility] HC COMPLETE BLD COUNT 2020-11-22 22:53:00 Romero Limon [facility] W/AUTO DIFF COMPREHENSIVE METABOLIC 2020-11-22 22:53:00 Romero Limon [facility] PANEL LACTIC ACID, I-STAT 2020-11-22 22:53:00 Romero Limon [facility] AMMONIA LEVEL 2020-11-22 22:53:00 Romero Limon spital VENOUS BLOOD GAS 2020-11-22 22:53:00 Romero Limon H ospital ESTIMATED GFR 2020-11-22 22:53:00 Romero Limon spital XR ABDOMEN ACUTE INC CHEST 2020-11-02 22:51:00 Cliff Levy [facility] 1V ESTIMATED GFR 2020-11-02 21:55:00 [facility] HC COMPLETE BLD COUNT 2020-11-02 21:55:00 Calos Garcia [facility] W/AUTO DIFF COMPREHENSIVE METABOLIC 2020-11-02 21:55:00 [facility] PANEL PROTHROMBIN TIME WITH INR 2020-11-02 21:55:00 Calos Garcia [facility] COVID-19 QUALITATIVE 2020-11-02 21:05:00 [facility] NM BRAIN SPECT W I 123 2020-10-26 19:02:00 Cliff Levy [facility] DATSCAN HC COMPLETE BLD COUNT 2020-10-24 10:15:00 [facility] W/AUTO DIFF BASIC METABOLIC PANEL 2020-10-24 10:15:00 [facility] HEPATIC FUNCTION PANEL 2020-10-24 10:15:00 [facility] MAGNESIUM LEVEL 2020-10-24 10:15:00 [facility]ital PHOSPHORUS LEVEL 2020-10-24 10:15:00 [facility] PROTHROMBIN TIME WITH INR 2020-10-24 10:15:00 [facility] HEMOGLOBIN A1C 2020-10-24 10:15:00 [facility] THYROID STIMULATING 2020-10-24 10:15:00 [facility] HORMONE T4 2020-10-24 10:15:00 [facility] VITAMIN D 25 HYDROXY LEVEL 2020-10-24 10:15:00 [facility] ZINC LEVEL, SERUM 2020-10-24 10:15:00 [facility] ALPHA FETOPROTEIN 2020-10-24 10:15:00 [facility] ESTIMATED GFR 2020-10-24 10:15:00 [facility] URINE DRUGS OF ABUSE 2020-10-24 10:00:00 [facility] SCREEN LACTIC ACID LEVEL, SEPSIS 2020-10-24 06:20:00 [facility] - NOW AND REPEAT 2X EVERY 3 HOURS LACTIC ACID LEVEL, SEPSIS 2020-10-24 02:25:00 [facility] - NOW AND REPEAT 2X EVERY 3 HOURS XR CHEST 1 VW PORTABLE 2020-10-24 00:08:00 Rehrer, [facility] BLOOD CULTURE, AEROBIC & 2020-10-23 23:31:00 Rehrer, [facility] ANAEROBIC RESPIRATORY PATHOGEN PANEL 2020-10-23 23:31:00 Rehrer [facility] COVID-19 RT-PCR COMPREHENSIVE METABOLIC 2020-10-23 23:31:00 Rehrer, [facility] PANEL PHOSPHORUS LEVEL 2020-10-23 23:31:00 Rehrer, [facility] MAGNESIUM LEVEL 2020-10-23 23:31:00 Rehrer, [facility] LACTIC ACID LEVEL, SEPSIS 2020-10-23 23:31:00 Heriberto York [facility] - NOW AND REPEAT 2X EVERY 3 HOURS LIPASE LEVEL 2020-10-23 23:31:00 Rehrer, [facility] ESTIMATED GFR 2020-10-23 23:31:00 Rehrer, [facility] HC COMPLETE BLD COUNT 2020-10-23 23:20:00 Rehrer, [facility] W/AUTO DIFF PROTHROMBIN TIME WITH INR 2020-10-23 23:20:00 Rehrer, [facility] PARTIAL THROMBOPLASTIN 2020-10-23 23:20:00 Rehrer, [facility] TIME (PTT) AMMONIA LEVEL 2020-10-23 23:20:00 Rehrer, [facility] HC COMPLETE BLD COUNT 2020-10-10 00:05:00 [facility] W/AUTO DIFF COMPREHENSIVE METABOLIC 2020-10-10 00:05:00 [facility] PANEL LACTIC ACID, I-STAT 2020-10-10 00:05:00 Fabian Azevedo [facility] AMMONIA LEVEL 2020-10-10 00:05:00 Fabian Azevedo [facility] ESTIMATED GFR 2020-10-10 00:05:00 [facility] URINALYSIS 2020-10-09 23:32:00 [facility] ECG 12-LEAD 2020-10-09 23:18:11 [facility] COMPLETE BLD COUNT 2020-09-21 10:28:00 [facility] W/AUTO DIFF BASIC METABOLIC PANEL 2020-09-21 10:28:00 [facility] HEPATIC FUNCTION PANEL 2020-09-21 10:28:00 [facility] MAGNESIUM LEVEL 2020-09-21 10:28:00 [facility] PHOSPHORUS LEVEL 2020-09-21 10:28:00 [facility] PROTHROMBIN TIME WITH INR 2020-09-21 10:28:00 [facility] MISCELLANEOUS REFERRAL 2020-09-21 10:28:00 [facility] TEST VITAMIN B12 LEVEL 2020-09-21 10:28:00 [facility] FOLATE LEVEL 2020-09-21 10:28:00 [facility] ESTIMATED GFR 2020-09-21 10:28:00 [facility] COVID-19 QUALITATIVE 2020-09-20 20:51:00 [employer] [facility] Gabriel HC COMPLETE BLD COUNT 2020-09-20 12:08:00 [facility] W/AUTO DIFF BASIC METABOLIC PANEL 2020-09-20 12:08:00 [facility] HEPATIC FUNCTION PANEL 2020-09-20 12:08:00 [facility] MAGNESIUM LEVEL 2020-09-20 12:08:00 [facility] PHOSPHORUS LEVEL 2020-09-20 12:08:00 [facility] PROTHROMBIN TIME WITH INR 2020-09-20 12:08:00 [facility] HEMOGLOBIN A1C 2020-09-20 12:08:00 [facility] THYROID STIMULATING 2020-09-20 12:08:00 [facility] HORMONE T4 2020-09-20 12:08:00 [facility] VITAMIN D 25 HYDROXY LEVEL 2020-09-20 12:08:00 [facility] ZINC LEVEL, SERUM 2020-09-20 12:08:00 [facility] ALPHA FETOPROTEIN 2020-09-20 12:08:00 [facility] ESTIMATED GFR 2020-09-20 12:08:[facility] CT CERVICAL SPINE WO 2020-09-20 06:50:[address] [facility] CONTRAST [facility] CT PELVIS WO CONTRAST 2020-09-20 06:50:[address] [facility] [address] HEAD WO CONTRAST 2020-09-20 06:50:07 Bonny Rod [facility] VA CRITICAL CARE, E/M 2020-09-20 04:05:41 [facility]ES Renee URINE CULTURE 2020-09-20 04:00:00 Bonny Rod spital Reene URINALYSIS SCREEN AND 2020-09-20 04:00:00 Marcel [facility] MICROSCOPY, WITH REFLEX TO Renee CULTURE URINE DRUGS OF ABUSE 2020-09-20 04:00:[address] [facility] SCREEN Renee MAGNESIUM LEVEL 2020-09-20 04:00:00 Bonny Rod Ho spital Renee TROPONIN 2020-09-20 04:00:00 [facility] KNEE 3 VW LEFT 2020-09-20 02:06:29 Marcel [facility] Renee XR KNEE 3 VW RIGHT 2020-09-20 02:06:09 Macrel [facility] XR SHOULDER 2+ VW RIGHT 2020-09-20 02:05:46 Bonny Rod [facility] HC COMPLETE BLD COUNT 2020-09-20 02:05:00 [facility] W/AUTO DIFF Renee PROTHROMBIN TIME WITH INR 2020-09-20 02:05:00 Bonny Rod [facility] PARTIAL THROMBOPLASTIN 2020-09-20 02:05:00 Bonny Rod [facility] TIME (PTT) Renee COMPREHENSIVE METABOLIC 2020-09-20 02:05:00 Bonny Rod [facility] PANEL Renee TROPONIN 2020-09-20 02:05:00 Bonny Rod [facility] Renee B NATRIURETIC PEPTIDE 2020-09-20 02:05:00 Bonny Rod [facility] Renee AMMONIA LEVEL 2020-09-20 02:05:00 [facility] ALCOHOL LEVEL, BLOOD 2020-09-20 02:05:00 Bonny Rod [facility] Renee ESTIMATED GFR 2020-09-20 02:05:00 Bonny Rod [facility] Renee Plan of Care Planned Activity Planned Date Details Comments Source Future Scheduled 2024-08-[address] [facility] (procedure) [code = [facility] Center 37618280] Future Scheduled 2024-08-[address] [facility] 00:00:00 (procedure) [code = Medical Center 74374922] Future Scheduled 2024-08-[address] [facility] 00:00:00 (procedure) [code = Medical Center 17227320] Future Scheduled 2022-04-12 INFLUENZA VACCINE (#1) C [...] VACCINE (#1)] Future Scheduled 2021-09-12 COLONOSCOPY SCREENING [facility] Test 12:13:11 [code = COLONOSCOPY SCREENING] Future Scheduled 2021-09-12 [facility]INGLES [facility]IN[facility] (#[facility] 12:13[facility]11 [code = SHINGLES VACCINES (#1)] Future Scheduled 2021-09-12 [facility] 12:13:11 SCREENING [code = BREAST CANCER SCREENING] Future Scheduled 2021-09-12 COVID-19 VACCINE (2 - [facility] 12:13:11 Booster for Yanira series) [code = COVID-19 VACCINE (2 - Booster for Yanira series)] Future Scheduled 2021-09-12 [facility]INE [facility] 12:13:11 [code = INFLUENZA VACCINE] Future Scheduled 2021-09-12 [facility] 12:13:11 malignant neoplasm of cervix (procedure) [code = 876728623] Future Scheduled 2021-08-[address] [...] Test 00:00:00 (procedure) [code = Medical Center 09786645] Future Scheduled [address] [facility] 00:[facility]:00 malignant neoplasm of [facility]ica [facility] Center cervix (procedure) [code = 524548443] Future Scheduled [address] [facility] [facility] Test 00:00:00 malignant neoplasm of [facility] Center cervix (procedure) [code = 326821251] Future Scheduled [address] [facility] Test 00:00:00 malignant neoplasm of [facility] Center cervix (procedure) [code = 492805297] Future Scheduled [address] [facility] Test 00:00:00 malignant neoplasm of Medica [facility] Center cervix (procedure) [code = 868670513] Future Scheduled 1980 DTAP/TDAP/TD VACCINES CH I [...] Cessation Counseling and Screening (12+)] Future Scheduled [address] [...] Medica l Center breast (procedure) [code = 787407810] Future Scheduled [address] [facility] Test 00:00:00 malignant neoplasm of [facility] Center colon (procedure) [code = 731353368] Future Scheduled [address] [facility] Test 00:00:00 malignant neoplasm of Medica [facility] Center breast (procedure) [code = 431694067] Future Scheduled [address] [facility] Test 00:00:00 (combo) [code = CT Medical C enter Colonography (combo)] Future Scheduled [address] [facility] Test 00:00:00 malignant neoplasm of Medica [facility] Center colon (procedure) [code = 530586245] Future Scheduled [address] [facility] Test 00:00:00 malignant neoplasm of [facility]ica [facility] Center colon (procedure) [code = 183166844] Future Scheduled [address] [facility] Test 00:00:00 malignant neoplasm of [facility]ica [facility] Center colon (procedure) [code = 217536095] Future Scheduled [address] [facility] Test 00:00:00 malignant neoplasm of Medica l Center colon (procedure) [code = 087032307] Future Scheduled 1961 Sigmoidoscopy [facility]code [facility] [address] [facility] 00:00:00 malignant neoplasm of Medica l Center breast (procedure) [code = 455327584] Future Scheduled [address] [facility] 00:00:00 (combo) [code = CT Medical C enter Colonography (combo)] Future Scheduled [address] [facility] Test 00:00:00 malignant neoplasm of Medica l Center colon (procedure) [code = 218368073] Future Scheduled [address] [facility] Test 00:00:00 malignant neoplasm of Medica l Center colon (procedure) [code = 963824817] Future Scheduled [address] [facility] Test 00:00:00 malignant neoplasm of Medica l Center colon (procedure) [code = 498756513] Future Scheduled [address] [facility] Test 00:00:00 malignant neoplasm of Medica [facility] Center colon (procedure) [code = 975325694] Future Scheduled 1961 Sigmoidoscopy [facility]code [facility]oscopy] Medical Cente r Future Scheduled [address] [facility] Test 00:00:00 malignant neoplasm of Medica l Center breast (procedure) [code = 460462479] Future Scheduled [address] [facility] 00:00:00 (combo) [code = CT Medical C enter Colonography (combo)] Future Scheduled [address] [facility] Test 00:00:00 malignant neoplasm of Medica l Center colon (procedure) [code = 150348300] Future Scheduled [address] [facility] [facility] Test 00:00:00 malignant neoplasm of Medica l Center colon (procedure) [code = 043502202] Future Scheduled [address] Test 00:00:00 malignant neoplasm of Medica l Center colon (procedure) [code = 628780381] Future Scheduled [address] [facility] Test 00:00:00 malignant neoplasm of Medica l Center colon (procedure) [code = 278517902] Future Scheduled 1961 Sigmoidoscopy [facility]code [facility] 00:[facility] S[facility]oscopy] Medical Nitza cantu Encounters Start End Encounter Admission Attending Care Care Encounter Source Date/Time Date/Time Type Type Clinicians Facility Department ID 2022-04-27 Outpatient Man, [facility] [id number] Common 10:06:00 Fernando [id number] [facility] 2022-03-26 Outpatient ER [facility] Internal [id number] 11:28:10 [facility] 2022-03-22 [facility] [id number] Common 08:23:00 Fernando [id number] [facility] 2021-09-06 Outpatient Amn, [facility] [id number] Common 13:49:19 Fernando [id number] [facility] 2021-09-06 Outpatient Man, [facility] [id number] Common 13:45:16 Fernando [id number] [facility] 2021-09-06 Outpatient Man, [facility] [id number] Common 12:49:41 Fernando [id number] [facility] 2021-09-06 Outpatient Man, [facility] Common 12:05:14 Fernando [id number] [facility] 2021-09-06 Out[facility], [facility] Common 12:03:44 Frenando [id number] [facility] 2021-09-06 Outpatient Man, [facility] Common 11:42:32 Fernando [id number] [facility] 2021-09-06 Outpatient Man, [facility] Common 11:33:04 Fernando [id number] [facility] 2022-07-02 2022-07-02 Outpatient SFA SFA [id number] Robby 14:37:57 14:37:57 [id number] F Rafael 2022-06-15 2022-06-26 Inpatient TING [facility] [id number] [place] 00:00:00 00:00:00 PIERSON, 407 Method i [facility]E 2022-03-26 2022-06-15 Inpatient YORK, [facility] [id number] [place] 00:00:00 00:00:00 HERIBERTO 401 Method i 2022-02-17 2022-02-23 Inpatient DINAKAR, [facility] [id number] [place] 00:00:00 00:00:00 PIERCE 147 Method i 2022-02-09 2022-02-09 Outpatient Christiana [facility] [id number] Univers 15:00:00 15:00:00 SALLY tatum [facility] 2022-02-09 2022-02-09 Outpatient Christiana [facility] [id number] Univers 15:00:00 15:00:00 SALLY tatum [facility] 2022-02-08 2022-02-08 Orders Doctor KIRIT [id number] Univers 00:00:00 00:00:00 Only Unassigned, MICHAEL [id number] ity of Kiel [facility] [id number] Brent as [phone] [address] 2022-01-30 2022-01-30 Telephone [facility] 1.2.840.114 [id number] Univers 00:00:00 00:00:00 [facility] [id number] it y of Ricki P[place]RAS [id number] Brent as VAMSI?BLEA [phone] Co dical KNEY 044 [place] MEDICAL OFFICE [facility] 2022-01-23 2022-01-23 Lab [facility] [id number] 00:00:00 00:00:00 Requisitio Alejo [facility] 2022-01-23 2022-01-23 Lab [facility] [id number] 00:00:00 00:00:00 Requisitio Alejo [facility] 2022-01-10 2022-01-10 Outpatient GALATI, [facility] [id number] [address] [place] [address] 00:00:00 00:00:[address] CALOS [address] 2022-01-10 2022-01-10 Outpatient GALATI, [facility] [id number] [address] [place] [address] 00:00:00 00:00:[address] CALOS [address] 2021-11-30 2021-11-30 (TEL) [facility] [id number] Co mmon 00:00:00 00:00:00 [facility] 2021-11-16 2021-11-16 Office [facility] [id number] Univers 13:30:00 14:32:33 Visit Libby PORRAS 350.1.13.10 i ty of [id number] [phone] Co dical NAL 134 [facility] 2021-11-16 2021-11-16 Outpatient Christiana LEVY [facility] [id number] Univers 13:30:00 14:32:33 LIBBY tatum [facility] 2021-11-16 2021-11-16 Outpatient Christiana LEVY [facility] [id number] Univers 13:30:00 13:30:00 LIBBY tatum [facility] 2021-11-16 2021-11-16 Outpatient Christiana LEVY [facility] [id number] Univers 13:30:00 13:30:00 LIBBY rc [facility] 2021-11-10 2021-11-10 Office [facility] [id number] Univers 16:30:00 16:30:00 Visit Sallycalin PORRAS 350.1.13.10 i ty [facility] [id number] Brentbrendon skelton ESSIO [phone] Co dical NAL 098 [facility] 2021-11-10 2021-11-10 Outpatient Christiana [facility] [id number] Univers 16:30:00 13:58:19 [facility] 2021-10-27 2021-11-04 Inpatient TING [facility] [id number] [place] 00:00:00 00:00:[address] 2021-10-16 2021-10-16 (HOSP F/U) [facility] [id number] Common 00:00:00 00:00:00 Hospital [facility] Follow Up - [facility] 2021-10-13 2021-10-13 (TEL) [facility] [id number] Co mmon 00:00:00 00:00:[address] [facility] 2021-10-03 2021-10-03 [facility] [id number] 00:00:00 00:00:00 [facility] 2021-10-03 2021-10-03 [facility] [id number] 00:00:00 00:00:00 [facility] 2021-10-02 2021-10-02 Outpatient Christiana AGUDELO [facility] [id number] Univers 15:30:00 16:50:13 [facility] 2021-10-02 2021-10-02 Outpatient Christiana AGUDELO [facility] [id number] Univers 15:30:00 15:30:00 [facility] 2021-09-27 2021-09-27 Outpatient R [facility] [id number] Univers 13:45:00 15:38:26 LIBBY tatum [facility] 2021-09-27 2021-09-27 Office HarshilguillermohiginioGUADALU[facility] [id number] Univers 13:45:00 15:38:26 Visit Libby VERN 350.1.13.10 i ty of [place] [id number] [phone] Co dical [address] 2021-09-27 2021-09-27 Outpatient R CAM [facility] [id number] Univers 13:45:00 15:38:26 [facility] 2021-09-27 2021-09-27 Orders Doctor KIRIT [id number] [id number] Univers 00:00:00 00:00:00 Only Unassigned, MICHAEL [id number] ity of [place] [facility] [id number] Brent as [phone] [address] 2021-09-25 2021-09-25 OFFICE [facility] [id number] Co mmon 00:00:00 00:00:00 VISIT Gilberto CARDENAS PT - CHI LEVEL 4 [facility] 2021-09-01 2021-09-16 [facility] [id number] 22:15:00 12:13:00 Encounter [facility] lemon Laura Alissa 2021-09-01 2021-09-[address] [facility] Gastro [id number] [facility]H 22:15:00 12:13:00 KENDY 2021-09-01 2021-09-16 [facility] [id number] 22:15:00 12:13:00 Encounter Zara Mason edis [facility] Lawrence, Nia Delaney 2021-09-04 2021-09-04 (TEL) [facility] [id number] Co mmon 00:00:00 00:00:00 [facility] 2021-09-01 2021-09-01 Telephone Cristofer, Cristal.2.840.1 [id number] Methodi 00:00:00 00:00:[address] [place] [facility] 3.430.2.7 Hospit a .3.731012 l .8 2021-09-01 2021-09-01 Documentat [facility] [id number] 00:00:00 00:00:00 [facility] 2021-09-01 2021-09-01 Documentat [facility] [id number] [facility] St 00:00:00 00:00:00 [facility] 2021-08-30 2021-08-31 Emergency ADALI, [facility] [id number] [place] 00:00:00 00:00:00 MOISES [address] 2021-08-30 2021-08-30 Travel 1.2.840.1 [id number] [id number] Methodi 00:00:00 00:00:[address] 3.430.2.7 0.2.7.3.698 spita .3.195756 084.8 l .8 2021-08-29 2021-08-29 Outpatient Christiana LEVY, [facility] [id number] [facility] 13:00:00 13:00:00 LIBBY tatum [facility] 2021-08-29 2021-08-29 Outpatient JOSE, [facility] [id number] [place] 00:00:00 00:00:[address] CALOS [address] 2021-08-29 2021-08-29 Travel 1.2.840.1 [id number] [id number] Methodi 00:00:00 00:00:[address] 3.430.2.7 0.2.7.3.698 Ho spita .3.105916 084.8 l .8 2021-08-25 2021-08-25 Travel 1.2.840.1 1.2.768.770 [id number] Methodi 00:00:00 00:00:[address] 3.430.2.7 0.2.7.3.698 Ho spita .3.267263 084.8 l .8 2021-08-17 2021-08-25 [facility].2.840.1 [id number] [place] 00:00:00 00:00:00 Encounter 28211.1.1 [id number] .3.106822 .8 2021-08-24 2021-08-24 Surgery [facility], 1.2.840.1 [id number] [id number] Methodi 09:00:00 10:25:[address] 3.430.2.7 Hospit a .3.755218 l .8 2021-08-24 2021-08-24 Documentat [facility], 1.2.840.1 [id number] 21 [id number] Methodi 00:00:00 00:00:00 [place] [address].1.[address] Matthew 3.430.2.7 Hospit a .3.160681 l .8 2021-08-23 2021-08-23 Documentat [facility], 1.2.840.1 [id number] 21 [id number] Methodi 00:00:00 00:00:00 [place] [address]1.[address] Matthew 3.430.2.7 Hospit a .3.198905 l .8 2021-08-21 2021-08-21 [facility] Jaimes, 1.2.840.1 [id number] Methodi 12:37:39 13:37:39 Work Kirit 53710.1.[address] 3.430.2.7 Hospit a .3.519323 l .8 2021-08-21 2021-08-21 Documentat Delaiyana, 1.2.840.1 [id number] Methodi 00:00:00 00:00:00 [place] [address] Matthew 3.430.2.7 Hospit a .3.933987 l .8 2021-08-21 2021-08-21 Telephone Pops, 1.2.840.1 [id number] 2100 [id number] Methodi 00:00:00 00:00:[address] 3.430.2.7 Hospit a .3.404074 l .8 2021-08-18 2021-08-18 Travel 1.2.840.1 1.2.970.913 0704 [id number] Methodi 00:00:00 00:00:[address] 3.430.2.7 0.2.7.3.698 Ho spita .3.145918 084.8 l .8 2021-08-10 2021-08-11 Emergency Adali, 1.2.840.1 [id number] 2 [id number] Methodi 20:25:00 01:30:[address] Rylee 3.430.2.7 Ho spita .3.726274 l .8 2021-08-10 2021-08-10 Travel 1.2.840.1 1.2.604.663 9881 430779 Methodi 00:00:00 00:00:[address] 3.430.2.7 0.2.7.3.698 Ho spita .3.143238 084.8 l .8 2021-07-28 2021-07-28 (TEL) STLMLC STLMLC [id number] Co mmon 00:00:00 00:00:00 [facility] 2021-07-25 2021-07-25 Telephone Stephanie, 1.2.840.1 [id number] Methodi 00:00:00 00:00:[address] 3.430.2.7 Hospit a .3.832363 l .8 2021-07-24 2021-07-24 Telephone Pops, 1.2.840.1 [id number] 2099 [id number] Methodi 00:00:00 00:00:[address] 3.430.2.7 Hospit a .3.882513 l .8 2021-07-12 2021-07-12 [facility]EL[facility] [id number] Co mmon 00:00:00 00:00:00 [facility] 2021-06-29 2021-06-29 Travel 1.2.840.1 1.2.358.755 6715 [id number] Methodi 00:00:00 00:00:[address] 3.430.2.7 0.2.7.3.698 Ho spita .3.760427 084.8 l .8 2021-06-28 2021-06-28 Emergency NUSZEN, [facility] 064 [id number] 37 [place] 00:00:00 00:00:00 ROMERO [address] 2021-06-22 2021-06-22 Behavioral John, 1.2.840.1 [id number] 948 [id number] Methodi 00:00:00 00:00:00 Health Kaleb 08328.1.[address] Johnny 3.430.2.7 Hospit a .3.242748 l .8 2021-06-18 2021-06-21 [facility], 1.2.840.1 [id number] 2100 [id number] [place] 00:00:00 00:00:00 Encounter PIERCE 74876.1.1 [address] .3.320968 .8 2021-06-18 2021-06-18 Travel 1.2.840.1 1.2.573.549 4289 [id number] Methodi 00:00:00 00:00:[address] 3.430.2.7 0.2.7.3.698 Ho spita .3.951030 084.8 l .8 2021-06-16 2021-06-16 Orders Teri, 1.2.840.8 [id number] 21 [id number] Methodi 00:00:00 00:00:00 Only Eusebia Maya 42391.1.[address] 3.430.2.7 Hospit a .3.689012 l .8 2021-06-08 2021-06-08 Clinical 1.2.840.1 [id number] 74 Methodi 12:04:06 13:04:[address] 3.430.2.7 Hospit a .3.646966 l .8 2021-06-05 2021-06-05 Telephone [facility], 1.2.840.1 [id number] 2099 [id number] Methodi 00:00:00 00:00:[address] Johnny 3.430.2.7 Hospit a .3.319424 l .8 2021-05-31 2021-06-02 [facility], 1.2.840.1 [id number] 897 [id number] [place] 00:00:00 00:00:00 Encounter HERIBERTO 82934.1.[address] .3.942018 .8 2021-05-31 2021-05-31 Travel 1.2.840.1 1.2.315.140 0577 570618 Methodi 00:00:00 00:00:[address] 3.430.2.7 0.2.7.3.698 Ho spita .3.400416 084.8 l .8 2021-05-24 2021-05-27 [facility] 012 [id number] 53 [place] 00:00:00 00:00:00 Encounter [facility] [address] 2021-05-24 2021-05-24 Travel 1.2.840.1 1.2.930.346 3019 068766 Methodi 00:00:00 00:00:[address] 3.430.2.7 0.2.7.3.698 Ho spita .3.527749 084.8 l .8 2021-05-23 2021-05-23 (TEL) STLMLC STLMLC [id number] Co mmon 00:00:00 00:00:00 [facility] 2021-05-19 2021-05-19 (TEL) STLMLC STLMLC [id number] Co mmon 00:00:00 00:00:00 [facility] 2021-05-01 2021-05-01 (TEL) STLMLC STLMLC [id number] Co mmon 00:00:00 00:00:00 [facility] 2021-04-26 2021-04-26 (TEL) STLMLC STLMLC [id number] Co mmon 00:00:00 00:00:00 [facility] 2021-04-26 2021-04-26 OFFICE STLMLC STLMLC [id number] Co mmon 00:00:00 00:00:00 VISIT [facility] ESTAB PT - [facility] LEVEL 4 [facility] 2021-04-26 2021-04-26 SUB ANNUAL STLMLC STLMLC [id number] Common 00:00:00 00:00:00 MCR [facility] WELLNESS - CHI VISIT [facility] 2021-01-13 2021-01-13 (TEL) STLMLC STLMLC [id number] Co mmon 00:00:00 00:00:00 [facility] 2020-12-13 2020-12-13 (TEL) STLMLC STLMLC [id number] Co mmon 00:00:00 00:00:00 [facility] 2020-11-28 2020-11-28 Patient Randal 1.2.840.1 [id number] [id number] Methodi 00:00:00 00:00:00 Outreach Bia 31241.1.[address] 3.430.2.7 Hospit a .3.040496 l .8 2020-11-25 2020-11-25 Patient Randal, 1.2.840.1 [id number] Methodi 00:00:00 00:00:00 Outreach Bia 29344.1.[address] 3.430.2.7 Hospit a .3.985721 l .8 2020-11-24 2020-11-24 Patient Randal, 1.2.840.1 [id number] Methodi 00:00:00 00:00:00 Outreach Bia 52992.1.[address] 3.430.2.7 Hospit a .3.022690 l .8 2020-11-22 2020-11-23 Emergency Wild Kovacs 1.2.840. 1 [id number] Methodi 17:29:00 16:26:00 [address]lee [address]ard [address]115.1.[address] 3.430.2.7 Hospit a .3.214515 l .8 2020-11-22 2020-11-22 Travel 1.2.840.1 1.2.445.012 8064 275279 Methodi 00:00:00 00:00:[address] 3.430.2.7 0.2.7.3.698 Ho spita .3.948047 084.8 l .8 2020-11-17 2020-11-17 Outpatient STLMLC STLMLC [id number] Common 00:00:00 00:00:00 [facility] 2020-11-02 2020-11-02 [facility] Cliff Levy 1.2.840.1 [id number] Methodi 16:45:00 23:59:00 Encounter Calos Garcia 08536.1.[address] 3.430.2.7 Hospit a .3.160639 l .8 2020-11-02 2020-11-02 Lab Cristal Garcia.2.840.1 [id number] Methodi 16:00:31 16:05:31 Calos Feng 59418.1.[address] 3.430.2.7 Hospit a .3.189900 l .8 2020-11-02 2020-11-02 Travel 1.2.840.1 1.2.743.231 7962 381975 Methodi 00:00:00 00:00:[address] 3.430.2.7 0.2.7.3.698 Ho spita .3.381680 084.8 l .8 2020-10-26 2020-10-26 [facility] 1.2.840.1 [id number] 576 [id number] Methodi 12:51:36 23:59:00 Encounter Cliff Marion 46174.1.[address] 3.430.2.7 Hospit a .3.948185 l .8 2020-10-26 2020-10-26 [facility] 1.2.840.1 [id number] 099 [id number] Methodi 08:10:06 12:50:00 Encounter Cliff Marion 97998.1.[address] 3.430.2.7 Hospit a .3.793555 l .8 2020-10-26 2020-10-26 Travel 1.2.840.1 1.2.088.929 1386 405131 Methodi 00:00:00 00:00:[address] 3.430.2.7 0.2.7.3.698 Ho spita .3.049047 084.8 l .8 2020-10-23 2020-10-24 Hospital [facility] 1.2.840.1 104 [id number] Methodi 17:57:00 14:46:00 Encounter Heriberto York 26351.1.[address] Baylee [facility]430.2.7 [facility] .3.299963 l .8 2020-10-13 2020-10-13 Travel 1.2.840.1 1.2.844.384 4703 719293 Methodi 00:00:00 00:00:[address] 3.430.2.7 0.2.7.3.698 Ho spita .3.727339 084.8 l .8 2020-10-12 2020-10-12 Transcribe Mildred 1.2.840.1 [id number] 2 [id number] Methodi 00:00:00 00:00:00 Orders Cliff ChuLaurel 32735.1.[address] 3.430.2.7 Hospit a .3.453343 l .8 2020-10-11 2020-10-11 Outpatient STLMLC STLMLC [id number] Common 00:00:00 00:00:00 [facility] 2020-10-09 2020-10-09 Emergency Azevedo, 1.2.840.1 [id number] 2099 [id number] Methodi 16:28:00 19:29:[address] Gus 3.430.2.7 Hospit a .3.445486 l .8 2020-10-03 2020-10-03 Outpatient STLMLC STLMLC [id number] Common 00:00:00 00:00:00 [facility] 2020-09-19 2020-09-21 [facility] 1.2.840.1 [id number] Methodi 16:55:00 14:27:00 Encounter Heriberto York 31031.1.[address] Jennifer Ghosh 3.430.2.7 Hos lis .3.907113 l .8 2020-09-15 2020-09-15 Transcribe Jose 1.2.840.1 [id number] 000 [id number] Methodi 00:00:00 00:00:00 Orders Calos Feng 95626.1.[address] 3.430.2.7 Hospit a .3.302048 l .8 2020-09-14 2020-09-14 Outpatient STLMLC STLMLC [id number] Common 00:00:00 00:00:00 [facility] 2020-08-31 2020-09-02 Inpatient ROLANDO, [facility] [id number] [place] 00:00:00 00:00:00 PIERCE [address] 2020-08-10 2020-08-13 Inpatient CHELA, [facility] 012 [id number] [place] 00:00:00 00:00:00 HERIBERTO [address] 2020-08-09 2020-08-09 Emergency NUSZEN, [facility] 064 [id number] 75 [place] 00:00:00 00:00:00 ROMERO 618 Method i 2020-08-08 2020-08-08 Emergency WEIBEL, [facility] 064 [id number] 08 [place] 00:00:00 00:00:00 NOBLE [address] 2020-07-27 2020-07-27 Outpatient STLMLC STLMLC [id number] Common 00:00:00 00:00:00 [facility] 2020-07-18 2020-07-18 Outpatient [facility] [id number] [place] 00:00:00 00:00:[address] 2020-07-04 2020-07-07 Inpatient JENNIFER GHOSH [facility] 064 [id number] [place] 00:00:00 00:00:[address] 2020-06-28 2020-06-28 Outpatient STLMLC STLMLC [id number] Common 00:00:00 00:00:00 [facility] 2020-06-20 2020-06-20 Outpatient STLMLC STLMLC [id number] Common 00:00:00 00:00:00 [facility] 2020-05-30 2020-06-03 Inpatient JENNIFER GHOSH [facility] 064 [id number] [place] 00:00:00 00:00:[address] 2020-05-27 2020-05-27 Outpatient YALAMANCHIL [facility] 021 [id number] [place] 00:00:00 00:00:00 YIFAN Torres [address] 2020-05-20 2020-05-20 Outpatient STLMLC STLMLC [id number] Common 00:00:00 00:00:00 [facility] 2020-05-13 2020-05-17 Inpatient MARYBETH, [facility] 064 [id number] [place] 00:00:00 00:00:00 MERCY [address] 2020-04-13 2020-04-21 Inpatient YOJANA, [facility] 064 [id number] [place] 00:00:00 00:00:00 JUNO [address] 2020-04-13 2020-04-13 [facility] [id number] Common 16:02:00 16:02:[address] [facility] 2020-04-13 2020-04-13 Out[facility] [id number] Common 09:33:00 09:33:[address] [facility] 2020-04-05 2020-04-05 Out[facility] 32 [id number] Common 09:10:00 09:10:[address] [facility] 2020-04-04 2020-04-04 Out[facility] 32 [id number] Common 10:58:00 10:58:[address] [facility] 2020-04-04 2020-04-04 Outpatient [facility] [id number] Common 10:00:00 10:00:[address] [facility] 2020-03-17 2020-03-19 Inpatient TING [facility] 064 [id number] [place] 00:00:00 00:00:00 Ben PIERSON Method i BAYLEE st 2020-03-16 2020-03-16 Out[facility] [id number] Common 11:12:00 11:12:[address] [facility] 2020-03-14 2020-03-14 Outpatient JACQUELIN, [facility] [id number] [place] 00:00:00 00:00:00 EBONY [address] 2020-03-10 2020-03-10 Out[facility] [id number] Common 13:18:00 13:18:[address] [facility] 2020-03-07 2020-03-07 Outpatient [facility] [id number] Common 16:07:00 16:07:[address] [facility] 2020-03-04 2020-03-04 Outpatient [facility] [id number] Common 11:00:00 11:00:[address] [facility] 2020-03-04 2020-03-04 Outpatient [facility] [id number] Common 11:00:00 11:00:[address] [facility] 2020-03-04 2020-03-04 Outpatient MEAGAN, [facility] [id number] [place] 00:00:00 00:00:00 JAYASIMHA 578 Meth erasto 2020-02-18 2020-02-21 Inpatient YORK, [facility] 064 [id number] [place] 00:00:00 00:00:00 HERIBERTO 304 Method i 2020-01-18 2020-01-20 Inpatient DINAKAR, [facility] 983 [id number] [place] 00:00:00 00:00:00 PIERCE 881 Method i 2020-01-07 2020-01-11 Inpatient YORK, [facility] 064 [id number] [place] 00:00:00 00:00:00 HERIBERTO 087 Method i 2019-12-29 2019-12-29 Outpatient [facility] [id number] Common 07:03:00 07:03:[address] [facility] 2019-12-23 2019-12-25 Inpatient TING [facility] 064 [id number] [place] 00:00:00 00:00:00 PIERSON, 540 Method i BAYLEE 2019-12-23 2019-12-23 Outpatient JACQUELIN, [facility] [id number] [place] 00:00:00 00:00:00 AHMED 960 Method i 2019-12-22 2019-12-22 Office Daija [facility] 1.2.840.114 [id number] 14:08:03 14:56:41 Visit [facility] 350.1.13.10 Surgical 4.2.7.2.686 Specialti [phone] es 198 [place] 2019-12-22 2019-12-22 [facility] 1.2.840.114 [id number] Univers 14:08:03 14:56:41 Visit [facility] 350.1.13.10 it y of Surgical 4.2.7.2.686 Brent as Specialti [phone] Me dical es 198 [facility] 2019-12-22 2019-12-22 Outpatient [facility] [id number] Univers 14:15:00 14:15:00 [facility] 2019-12-15 2019-12-15 [facility] 1.2.840.114 [id number] Univers 14:57:28 15:12:28 Visit [facility] 350.1.13.10 it y of Surgical 4.2.7.2.686 Brent as Specialti [phone] Co dical es 198 [facility] 2019-12-15 2019-12-15 Outpatient Christiana [facility] [id number] Univers 15:00:00 15:00:00 [facility] 2019-12-08 2019-12-08 [facility] 1.2.840.114 [id number] Univers 15:45:23 16:15:13 Visit [facility] 350.1.13.10 it y of Surgical 4.2.7.2.686 Brent as Specialti [phone] Me dical es 198 [facility] 2019-12-08 2019-12-08 Outpatient Christiana [facility] [id number] Univers 16:00:00 16:00:00 [facility] 2019-12-08 Outpatient Christiana [facility] [id number] Univers 13:45:00 13:45:00 [facility] 2019-10-30 2019-10-30 Outpatient Christiana [facility] [id number] Univers 10:15:00 10:15:00 [facility] 2019-10-26 2019-10-26 Orders Doctor BETH 1.2.840.114 [id number] Univers 00:00:00 00:00:00 Only Unassigned, MICHAEL 350.1.13.10 ity of [facility]iel [facility] 4.2.7.2.686 Brent as [phone] [address] 2019-10-22 2019-10-22 Outpatient Christiana [facility] [id number] Univers 16:15:00 16:15:00 LITA [facility] 2019-10-22 2019-10-22 Office [facility] 1.2.840.114 [id number] Univers 10:06:57 10:56:32 Visit [facility] 350.1.13.10 it y of Surgical 4.2.7.2.686 Brent as Specialti [phone] Co dical es 198 [facility] 2019-10-22 2019-10-22 Outpatient Christiana [facility] [id number] Univers 10:15:00 10:15:00 LITA [facility] 2019-10-12 2019-10-15 [id number] [id number] [place] 00:00:00 00:00:00 HERIBERTO 906 Method i 2019-09-24 2019-09-24 [facility] 1.2.840.114 [id number] Univers 11:21:26 11:41:20 Visit [facility] 350.1.13.10 it y of Surgical 4.2.7.2.686 Brent as Specialti [phone] Co dical es 198 [facility] 2019-09-24 2019-09-24 Outpatient Christiana [facility] [id number] Univers 11:15:00 11:41:20 LITA [facility] 2019-09-01 2019-09-03 Inpatient CHELA [facility] [id number] [place] 00:00:00 00:00:00 HERIBERTO [address] 2019-07-20 2019-07-20 Out[facility] [id number] Common 14:02:00 14:02:[address] [facility] 2019-07-16 2019-07-16 [facility] 27 [id number] Common 13:15:00 13:15:[address] [facility] 2019-06-16 2019-06-18 Inpatient CHELA, [facility] [id number] [place] 00:00:00 00:00:00 HERIBERTO 382 Method i 2019-05-07 2019-05-08 Outpatient YOVANY TAVERAS [facility] [id number] [place] 00:00:00 00:00:00 691 Method i 2019-04-23 2019-04-23 Outpatient GALATI, [facility] [id number] [place] 00:00:00 00:00:00 CALOS 089 Method i 2019-04-23 2019-04-23 Outpatient JACQUELIN, [facility] [id number] [place] 00:00:00 00:00:00 AHMED 724 Method i 2019-04-15 2019-04-15 Out[facility] [id number] Common 14:19:00 14:19:[address] [facility] 2019-04-09 2019-04-09 Outpatient [facility] [id number] Common 14:00:00 14:00:[address] [facility] 2019-03-10 2019-03-10 Transition Bennie Ma 1.2.840.114 [id number] Univers 00:00:00 00:00:00 of Care Anabell Almaguer 350.1.13.10 it y of [place] 4.2.7.2.686 [facility] [phone] [facility] [address] 2019-03-06 2019-03-09 [facility] DiannkazrikaAkanksha 1.2.840. 114 [id number] [facility] 00:42:03 16:11:00 Encounter Indra Motta 350.1.13.1 0 ity of [facility] 4.2.7.2.686 [place] [phone] [facility] [address] 2019-01-21 2019-01-21 Emergency X PALMER [facility] ERT [id number] Univers 19:21:56 22:21:00 MARTELL tatum [facility] 2018-09-09 2018-09-09 Outpatient [facility] [id number] Common 14:45:00 14:45:[address] [facility] 2018-04-15 2018-04-15 Outpatient [facility] [id number] Common 12:02:00 12:02:[address] [facility] 2018-02-19 2018-02-19 Outpatient [facility] 14 [id number] Common 15:08:00 15:08:[address] [facility] 2018-01-24 2018-01-24 Outpatient [facility] [id number] Common 11:15:00 11:15:[address] [facility] Results Test Description Test Time Test Comments Results Result Comments Source SARS-CoV-2 (COVID-19) RNA [Presence] in Respiratory sp ecimen by 2022-06-14 00:24:44 GUSTAVO with probe detection Test Item Value Reference Range Interpretation Comme nts SARS-CoV-2 (COVID-19) RNA [Presence] in Respiratory specimen by Not detected GUSTAVO with probe detection (test code = 59121-6) 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 (test code = Un known 44677-5) Whether the patient has symptoms related to condition of interest U nknown (test code = 74416-7) Whether the patient was hospitalized for condition of interest Unkn own (test code = 72465-2) Whether the patient was admitted to intensive care unit (ICU) for U nknown condition of interest (test code = 84394-6) Whether patient resides in a congregate care setting (test code = U nknown 25288-6) status (test code = 75591-4) Unknown Date and time of symptom onset (test code = 90806-2) Unknown PHI DEANRS-CoV-2 (COVID-19) RNA [Presence] in Respiratory specimen by GUSTAVO with probe [id number] 07:50:50 Test Item Value Reference Range Interpretation Comments SARS-CoV-2 (COVID-19) RNA Not detected [Presence] in Respiratory specimen by GUSTAVO with probe detection (test code = 76437-7) 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 employed in a Unknown healthcare setting (test code = 60440-7) Whether the patient has symptoms Unknown related to condition of interest (test code = 22534-5) Whether the patient was Unknown hospitalized for condition of interest (test code = 97665-1) Whether the patient was admitted Unknown to intensive care unit (ICU) for condition of interest (test code = 32807-8) Whether patient resides in a Unknown congregate care setting (test code = 37107-1) status (test code = Unknown 07647-5) Date and time of symptom onset Unknown (test code = 55570-1) PHI MICHAELSARS-CoV-2 (COVID-19) RNA [Presence] in Respiratory specimen by GUSTAVO with probe [id number] 19:18:03 Test Item Value Reference Range Interpretation Comments SARS-CoV-2 (COVID-19) RNA Not detected [Presence] in Respiratory specimen by GUSTAVO with probe detection (test code = 75966-2) 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 employed in a No healthcare setting (test code = 04126-9) Whether the patient has symptoms Yes related to condition of interest (test code = 64088-9) Whether the patient was No hospitalized for condition of interest (test code = 11704-5) Whether the patient was admitted No to intensive care unit (ICU) for condition of interest (test code = 68748-2) Whether patient resides in a No congregate care setting (test code = 55300-6) status (test code = No 27256-5) Date and time of symptom onset Unknown (test code = 73303-4) PHI MICHAELSARS-CoV-2 (COVID-19) RNA [Presence] in Respiratory specimen by GUSTAVO with probe [id number] 11:44:34 Test Item Value Reference Range Interpretation Comments SARS-CoV-2 (COVID-19) RNA Not detected [Presence] in Respiratory specimen by GUSTAVO with probe detection (test code = 53770-1) 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 employed in a Unknown healthcare setting (test code = 95257-1) Whether the patient has symptoms Unknown related to condition of interest (test code = 56813-5) Whether the patient was Unknown hospitalized for condition of interest (test code = 70564-4) Whether the patient was admitted Unknown to intensive care unit (ICU) for condition of interest (test code = 69488-0) Whether patient resides in a Unknown congregate care setting (test code = 35095-1) status (test code = Unknown 21833-9) Date and time of symptom onset Unknown (test code = 96899-4) PHI MICHAELSARS-CoV-2 (COVID-19) RNA [Presence] in Respiratory specimen by GUSTAVO with probe [id number] 05:03:29 Test Item Value Reference Range Interpretation Comments SARS-CoV-2 (COVID-19) RNA Not detected [Presence] in Respiratory specimen by GUSTAVO with probe detection (test code = 30694-2) 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 employed in a Unknown healthcare setting (test code = 75211-9) Whether the patient has symptoms Unknown related to condition of interest (test code = 73072-9) Whether the patient was Unknown hospitalized for condition of interest (test code = 34258-2) Whether the patient was admitted Unknown to intensive care unit (ICU) for condition of interest (test code = 19567-4) Whether patient resides in a Unknown congregate care setting (test code = 36539-0) status (test code = Unknown 17525-1) Date and time of symptom onset Unknown (test code = 82204-2) PHI MICHAELSARS-CoV-2 (COVID-19) RNA [Presence] in Respiratory specimen by GUSTAVO with probe [id number] 16:50:47 Test Item Value Reference Range Interpretation Comments SARS-CoV-2 (COVID-19) RNA Not detected [Presence] in Respiratory specimen by GUSTAVO with probe detection (test code = 19126-4) 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 employed in a Unknown healthcare setting (test code = 24777-8) Whether the patient has symptoms Unknown related to condition of interest (test code = 67610-4) Whether the patient was Unknown hospitalized for condition of interest (test code = 19940-9) Whether the patient was admitted Unknown to intensive care unit (ICU) for condition of interest (test code = 46074-0) Whether patient resides in a Unknown congregate care setting (test code = 46037-6) status (test code = Unknown 41380-4) Date and time of symptom onset Unknown (test code = 28820-4) [facility] [id number] ENTEROGRAPHY ABDOMEN & PELVIS [id number] 13:32:43[facility] : 1960 Sex: FCLINICAL INDICATIO N: K50.90, Crohns disease, unspecified, without complications K92.1, Melena R19.4, Change in bowel habitMODALITY: OpenCurriculum 3T MRITECHNIQUE: Parallel imaging is accomplished using T2, in-phase, fct-rg-qyvmn, and breath-holding sequences. MR enterography techniques are [...] nodes. No mural or intraluminal bladder mass.Hepatitis A antibody, [id number] 23:01:06 Test Item Value Reference Range Interpretation Comments Hep A IgM (test code = Nonreactive Nonreactive 00225-1) REJI (test code = REJI) Manager Of Finance ID - ADMIN Lab Interpretation (test Normal code = 88441-1) [facility] [id number] 23:01:06 Test Item Value Reference Range Interpretation Comments Hepatitis C Ab (test code Nonreactive Nonreactive = 26167-8) REJI (test code = REJI) Manager Of Finance ID - ADMIN Lab Interpretation (test Normal code = 97008-1) [facility] [id number] 23:01:06 Test Item Value Reference Range Interpretation Comments Hepatitis B surface Nonreactive Nonreactive antigen (test code = 5195-3) REJI (test code = REJI) Specimen is considered negative for HBsAg. Lab Interpretation (test Normal code = 35381-9) [facility] B core antibody, [id number] 23:01:06 Test Item Value Reference Range Interpretation Comments Hep B C IgM (test code = Nonreactive Nonreactive 96806-3) REJI (test code = REJI) Manager Of Finance ID - ADMIN Lab Interpretation (test Normal code = 34512-1) [facility] [id number] 23:01:06 Test Item Value Reference Range Interpretation Comments Hep A IgM (test code = Nonreactive Nonreactive 70036-9) REJI (test code = REJI) Manager Of Finance ID - ADMIN Lab Interpretation (test Normal code = 18202-0) [facility] [id number] 23:01:06 Test Item Value Reference Range Interpretation Comments Hepatitis C Ab (test code Nonreactive Nonreactive = 47827-8) REJI (test code = REJI) Manager Of Finance ID - ADMIN Lab Interpretation (test Normal code = 31317-0) [facility] [id number] 23:01:06 Test Item Value Reference Range Interpretation Comments Hepatitis B surface Nonreactive Nonreactive antigen (test code = 5195-3) REJI (test code = REJI) Specimen is considered negative for HBsAg. Lab Interpretation (test Normal code = 18702-3) [facility], [id number] 23:01:06 Test Item Value Reference Range Interpretation Comments Hep B C IgM (test code = Nonreactive Nonreactive 36826-0) REJI (test code = REJI) Manager Of Finance ID - ADMIN Lab Interpretation (test Normal code = 68407-1) [facility], [id number] 23:01:06 Test Item Value Reference Range Interpretation Comments Hep A IgM (test code = Nonreactive Nonreactive 90567-0) REJI (test code = REJI) Manager Of Finance ID - ADMIN Lab Interpretation (test Normal code = 51358-1) [facility] [id number] 23:01:06 Test Item Value Reference Range Interpretation Comments Hepatitis C Ab (test code Nonreactive Nonreactive = 35369-7) REJI (test code = REJI) Manager Of Finance ID - ADMIN Lab Interpretation (test Normal code = 70410-6) [facility] B surface [id number] 23:01:06 Test Item Value Reference Range Interpretation Comments Hepatitis B surface Nonreactive Nonreactive antigen (test code = 5195-3) REJI (test code = REJI) Specimen is considered negative for HBsAg. Lab Interpretation (test Normal code = 35951-3) [facility], [id number] 23:01:06 Test Item Value Reference Range Interpretation Comments Hep B C IgM (test code = Nonreactive Nonreactive 83098-7) REJI (test code = REJI) Manager Of Finance ID - ADMIN Lab Interpretation (test Normal code = 60858-8) [facility] SURFACE [id number] 23:01:06 Test Item Value Reference Range Interpretation Comments HEPATITIS B SURFACE ANTIGEN (2) Nonreactive Nonreactive (BEAKER) (test code = 2585) Specimen is considered negative for HBsAg.HEPATITIS B CORE ANTIBODY, IGM 2022-01-23 23:01:06 Test Item Value Reference Range Interpretation Comments HEPATITIS B CORE IGM ANTIBODY Nonreactive Nonreactive (BEAKER) (test code = 645) Manager Of Finance ID - ADMINHEPATITIS C [id number] 23:01:06 Test Item Value Reference Range Interpretation Comments HEPATITIS C ANTIBODY (BEAKER) Nonreactive Nonreactive (test code = 367) Manager Of Finance ID - ADMINHEPATITIS A ANTIBODY, [id number] 23:01:06 Test Item Value Reference Range Interpretation Comments HEPATITIS A IGM ANTIBODY (BEAKER) Nonreactive Nonreactive (test code = 498) Manager Of Finance ID - [id number]-SjH-3 (COVID-19) RNA [Presence] in Respiratory specimen by GUSTAVO with probe [id number] 04:55:57 Test Item Value Reference Range Interpretation Comments SARS-CoV-2 (COVID-19) RNA Not detected [Presence] in Respiratory specimen by GUSTAVO with probe detection (test code = 56133-9) 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 employed in a Unknown healthcare setting (test code = 00052-6) Whether the patient has symptoms Unknown related to condition of interest (test code = 72517-1) Whether the patient was Unknown hospitalized for condition of interest (test code = 25653-5) Whether the patient was admitted Unknown to intensive care unit (ICU) for condition of interest (test code = 30970-1) Whether patient resides in a Unknown congregate care setting (test code = 63667-4) status (test code = Unknown 17864-7) Date and time of symptom onset Unknown (test code = 34719-6) PHI MICHAELSARS-CoV-2 (COVID-19) RNA [Presence] in Respiratory specimen by GUSTAVO with probe [id number] 01:48:29 Test Item Value Reference Range Interpretation Comments SARS-CoV-2 (COVID-19) RNA Not detected [Presence] in Respiratory specimen by GUSTAVO with probe detection (test code = 24572-7) 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 employed in a Unknown healthcare setting (test code = 00739-4) Whether the patient has symptoms Unknown related to condition of interest (test code = 96676-9) Whether the patient was Unknown hospitalized for condition of interest (test code = 85485-7) Whether the patient was admitted Unknown to intensive care unit (ICU) for condition of interest (test code = 40349-4) Whether patient resides in a Unknown congregate care setting (test code = 31399-9) status (test code = Unknown 13242-6) Date and time of symptom onset Unknown (test code = 51619-9) [facility], [id number] 08:50:00Unlisted Reason for Exam - Click Yes and Enter Reason Below->YesUnlisted Reason for Exam->diarrhea. abdominal pain. C dif colitis.Is this for enterography?->NoWill this procedure require oral contrast?->No [facility] 1960 Sex: FFINAL [...] Quentin Sims MDReport Verified Date/Time: 09/15/2021 08:50:57 Basic Metabolic [id number] 07:34:36 Test Item Value Reference Range Interpretation Comments Sodium (test code = 138 meq/L 084-321 9639-2) Potassium (test code 3.7 meq/L 3.5-5.1 Specime [...] (test code = 7.5 mg/dL 8.4-10.2 L 63313-1) EGFR (test code = 83 mL/min/1.73 [place] [address]-9) NOT ACCURATE CREATININE CLEARANCE IN PREDICTING GLOMERULAR FILTRATION RATE . ESTIMATED GFR I S NOT APPLICABLE FOR DIALYSIS PATIENTS. REJI (test code = REJI) Manager Of Finance ID - EOSpecimen moderately icteric Lab Interpretation Abnormal (test code = 52620-7) [facility] Metabolic [id number] 07:34:36 Test Item Value Reference Range Interpretation Comments Sodium (test code = 138 meq/L 824-529 4149-2) Potassium (test code 3.7 meq/L 3.5-5.1 Specime n = 2823-3) slightly hemolyzed Chloride (test code = 105 meq/L 98-107 5-0) CO2 (test code = 26 meq/L 2028-04) BUN (test code = 10 mg/dL 03-01 3094-0) Creatinine (test code 0.72 mg/dL 0.57-1.25 Specim en = 2160-0) slightly hemolyzed Glucose (test code = 60 mg/dL 70-105 L 2345-7) Calcium (test code = 7.5 mg/dL 8.4-10.2 L 96824-7) EGFR (test code = 83 mL/min/1.[place] [address]-0) NOT ACCURATE CREATININE CLEARANCE IN PREDICTING GLOMERULAR FILTRATION RATE . ESTIMATED GFR I S NOT APPLICABLE FOR DIALYSIS PATIENTS. REJI (test code = REJI) Manager Of Finance ID - EOSpecimen moderately icteric Lab Interpretation Abnormal (test code = 90626-9) [facility] Metabolic [id number] 07:34:36 Test Item Value Reference Range Interpretation Comments Sodium (test code = 138 meq/L 609-560 3793-2) Potassium (test code 3.7 meq/L 3.5-5.1 Specime n = 2823-3) slightly hemolyzed Chloride (test code = 105 meq/L 98-107 2074-0) CO2 (test code = 26 meq/L 2028-04) BUN (test code = 10 mg/dL 03-01 3094-0) Creatinine (test code 0.72 mg/dL 0.57-1.25 Specim en = 2160-0) slightly hemolyzed Glucose (test code = 60 mg/dL 70-105 L 2345-7) Calcium (test code = 7.5 mg/dL 8.4-10.2 L 38261-9) EGFR (test code = 83 mL/min/1.[place] [address]-6) NOT ACCURATE CREATININE CLEARANCE IN PREDICTING GLOMERULAR FILTRATION RATE . ESTIMATED GFR I S NOT APPLICABLE FOR DIALYSIS PATIENTS. REJI (test code = REJI) Manager Of Finance ID - EOSpecimen moderately icteric Lab Interpretation Abnormal (test code = 86012-5) [facility] METABOLIC [id number] 07:34:36 Test Item Value Reference Range Interpretation [...] S NOT APPLICABLE FOR DIALYSIS PATIEN TS. Manager Of Finance ID - EOSpecimen moderately ictericHepatic function [id number] 07:29:08 Test Item Value Reference Range Interpretation Comments Protein, Total (test 5.2 See_Comment L Specime n slightly code = 2885-2) hemolyzed [Automated message] The system which generated this result transmitted reference range : 6.0 - 8.3 gm/dL . The reference range was not used to interpr et this result as normal/abnormal . Albumin (test code = 2.1 g/dL 3.5-5.0 L Specime n slightly 33539-4) hemolyzed Total Bilirubin (test 3.9 mg/dL 0.2-1.2 H Specim en slightly code = 1974-2) hemolyzed Bilirubin, Direct 1.5 mg/dL 0.1-0.5 H Specimen s lightly (test code = 1967-7) hemolyz ed Alkaline Phosphatase 95 U/L 40-150 (test code = 6768-6) AST (test code = 37 U/L 5-34 H Specimen sl ightly 1920-8) hemolyzed ALT (test code = 18 U/L 6-55 Specimen sl ightly 1742-6) hemolyzed REJI (test code = REJI) Manager Of Finance ID - EOSpecimen moderately icteric Lab Interpretation Abnormal (test code = 53916-9) [facility] [id number] 07:29:08 Test Item Value Reference Range Interpretation Comments Protein, Total (test 5.2 See_Comment L Specime n slightly code = 2885-2) hemolyzed [Automated message] The system which generated this result transmitted reference range : 6.0 - 8.3 gm/dL . The reference range was not used to interpr et this result as normal/abnormal . Albumin (test code = 2.1 g/dL 3.5-5.0 L Specime n slightly 83027-8) hemolyzed Total Bilirubin (test 3.9 mg/dL 0.2-1.2 H Specim en slightly code = 1974-) hemolyzed Bilirubin, Direct 1.5 mg/dL 0.1-0.5 H Specimen s lightly (test code = 1967-) hemolyz ed Alkaline Phosphatase 95 U/L 40-150 (test code = 6768-6) AST (test code = 37 U/L 5-34 H Specimen sl ightly 1920-8) hemolyzed ALT (test code = 18 U/L 6-55 Specimen sl ightly 1742-6) hemolyzed REJI (test code = REJI) Manager Of Finance ID - Mary moderately icteric Lab Interpretation Abnormal (test code = 17210-1) [facility] [id number] 07:29:08 Test Item Value Reference Range Interpretation Comments Protein, Total (test 5.2 See_Comment L Specime n slightly code = 2885-2) hemolyzed [Automated message] The system which generated this result transmitted reference range : 6.0 - 8.3 gm/dL . The reference range was not used to interpr et this result as normal/abnormal . Albumin (test code = 2.1 g/dL 3.5-5.0 L Specime n slightly 67253-5) hemolyzed Total Bilirubin (test 3.9 mg/dL 0.2-1.2 H Specim en slightly code = 1974-) hemolyzed Bilirubin, Direct 1.5 mg/dL 0.1-0.5 H Specimen s lightly (test code = 1968-02) hemolyz ed Alkaline Phosphatase 95 U/L 40-150 (test code = 6768-6) AST (test code = 37 U/L 5-34 H Specimen sl ightly 1920-8) hemolyzed ALT (test code = 18 U/L 6-55 Specimen sl ightly 1742-6) hemolyzed REJI (test code = REJI) Manager Of Finance ID - EOSpecimen moderately icteric Lab Interpretation Abnormal (test code = 74227-3) [facility] [id number] 07:29:08 Test Item Value Reference Range Interpretation [...] Specimen slightly (test code = 347) hemolyzed Manager Of Finance ID - EOSpecimen moderately ictericProthrombin time/[id number] 06:46:58 Test Item Value Reference Interpretation Comments [...] valves. Lab Interpretation Abnormal (test code = 02585-6) [facility] Hospital[facility]throm[facility]/[id number] 06:46:58 Test Item Value Reference Interpretation Comments [...] valves. Lab Interpretation Abnormal (test code = 85275-1) [facility]th[facility] time/[id number] 06:46:58 Test Item Value Reference Interpretation Comments [...] valves. Lab Interpretation Abnormal (test code = 04196-1) [facility]/[id number] 06:46:58 Test Item Value Reference Range Interpretation Comments PROTIME (BEAKER) 22.1 seconds 11.9-14.2 H (test code = 759) INR (BEAKER) (test 1.96 See_Comment [Automat ed message] code = 370) The system [employer] generated this result transmitted ref erence range: <=5.90. The reference range was not used to int erpret this result as normal/abnormal . RECOMMENDED COUMADIN/WARFARIN INR THERAPY RANGESSTANDARD DOSE: 2.0 - 3.0 Includes: PROPHYLAXIS for venous thrombosis, systemic embolization; TREATMENT for venous thrombosis and/or pulmonary embolus.HIGH RISK: Target INR is 2.5-3.5 for patients with mechanical heart valves.CBC with platelet count + automated [id number] 06:38:55 Test Item Value Reference Range Interpretation Comments WBC (test code = 6690-2) 7.9 See_Comment [A utomated message] The system [employer] generated this result transmitted ref erence range: 3.5 - 10 .5 K/L. The refe rence range was not u sed to interpret this result as normal/abnor mal. RBC (test code = 789-8) 2.53 See_Comment L [Au tomated message] The system [employer] generated this result transmitted ref erence range: 3.93 - 5 .22 M/L. The refe rence range was not u sed to interpret this result as normal/abnor mal. MCHC (test code = 786-4) 30.8 See_Comment L [A utomated message] The system [employer] generated this result transmitted ref erence range: [...] L [Aut omated message] 777-3) The system [employer] generated this result transmitted ref erence range: 150 - 45 0 K/CU MM. The referen ce range was not u sed to interpret this result as normal/abnor mal. MPV (test code = 10.6 fL 9.4-12.3 55787-9) nRBC (test code = 413) 0 See_Comment [Aut omated message] The system [employer] generated this result transmitted ref erence range: [...] See_Comment [Aut omated message] 670) The system [employer] generated this result transmitted ref erence range: 1.56 - 6 .13 K/L. The refe rence range was not u sed to interpret this result as normal/abnor mal. # Lymphs (test code = 0.99 See_Comment L [Auto mated message] 414) The system [employer] generated this result transmitted ref erence range: 1.18 - 3 .74 K/L. The refe rence range was not u sed to interpret this result as normal/abnor mal. # Monos (test code = 0.83 See_Comment H [Autom ated message] 415) The system [employer] generated this result transmitted ref erence range: 0.24 - 0 .36 K/L. The refe rence range was not u sed to interpret this result as normal/abnor mal. # Eos (test code = 416) 0.33 See_Comment [Au tomated message] The system [employer] generated this result transmitted ref erence range: 0.04 - 0 .36 K/L. The refe rence range was not u sed to interpret this result as normal/abnor mal. # Baso (test code = 417) 0.04 See_Comment [A utomated message] The system [employer] generated this result transmitted ref erence range: 0.01 - 0 .08 K/L. The refe rence range was not u sed to interpret this result as normal/abnor mal. Immature 1 % 0-1 Granulocytes-Relative (test code = 2801) Lab Interpretation (test Abnormal code = 64190-5) [facility] with platelet count + automated [id number] 06:38:55 Test Item Value Reference Range Interpretation Comments WBC (test code = 6690-2) 7.9 See_Comment [A utomated message] The system [employer] generated this result transmitted ref erence range: 3.5 - 10 .5 K/L. The refe rence range was not u sed to interpret this result as normal/abnor mal. RBC (test code = 789-8) 2.53 See_Comment L [Au tomated message] The system [employer] generated this result transmitted ref erence range: 3.93 - 5 .22 M/L. The refe rence range was not u sed to interpret this result as normal/abnor mal. MCHC (test code = 786-4) 30.8 See_Comment L [A utomated message] The system [employer] generated this result transmitted ref erence range: [...] L [Aut omated message] 777-3) The system [employer] generated this result transmitted ref erence range: 150 - 45 0 K/CU MM. The referen ce range was not u sed to interpret this result as normal/abnor mal. MPV (test code = 10.6 fL 9.4-12.3 41961-1) nRBC (test code = 413) 0 See_Comment [Aut omated message] The system [employer] generated this result transmitted ref erence range: [...] See_Comment [Aut omated message] 670) The system [employer] generated this result transmitted ref erence range: 1.56 - 6 .13 K/L. The refe rence range was not u sed to interpret this result as normal/abnor mal. # Lymphs (test code = 0.99 See_Comment L [Auto mated message] 414) The system [employer] generated this result transmitted ref erence range: 1.18 - 3 .74 K/L. The refe rence range was not u sed to interpret this result as normal/abnor mal. # Monos (test code = 0.83 See_Comment H [Autom ated message] 415) The system [employer] generated this result transmitted ref erence range: 0.24 - 0 .36 K/L. The refe rence range was not u sed to interpret this result as normal/abnor mal. # Eos (test code = 416) 0.33 See_Comment [Au tomated message] The system [employer] generated this result transmitted ref erence range: 0.04 - 0 .36 K/L. The refe rence range was not u sed to interpret this result as normal/abnor mal. # Baso (test code = 417) 0.04 See_Comment [A utomated message] The system [employer] generated this result transmitted ref erence range: 0.01 - 0 .08 K/L. The refe rence range was not u sed to interpret this result as normal/abnor mal. Immature 1 % 0-1 Granulocytes-Relative (test code = 2801) Lab Interpretation (test Abnormal code = 38855-8) [facility] with platelet count + automated [id number] 06:38:55 Test Item Value Reference Range Interpretation Comments WBC (test code = 6690-2) 7.9 See_Comment [A utomated message] The system [employer] generated this result transmitted ref erence range: 3.5 - 10 .5 K/L. The refe rence range was not u sed to interpret this result as normal/abnor mal. RBC (test code = 789-8) 2.53 See_Comment L [Au tomated message] The system [employer] generated this result transmitted ref erence range: 3.93 - 5 .22 M/L. The refe rence range was not u sed to interpret this result as normal/abnor mal. MCHC (test code = 786-4) 30.8 See_Comment L [A utomated message] The system [employer] generated this result transmitted ref erence range: [...] L [Aut omated message] 777-3) The system [employer] generated this result transmitted ref erence range: 150 - 45 0 K/CU MM. The referen ce range was not u sed to interpret this result as normal/abnor mal. MPV (test code = 10.6 fL 9.4-12.3 41956-1) nRBC (test code = 413) 0 See_Comment [Aut omated message] The system [employer] generated this result transmitted ref erence range: [...] See_Comment [Aut omated message] 670) The system [employer] generated this result transmitted ref erence range: 1.56 - 6 .13 K/L. The refe rence range was not u sed to interpret this result as normal/abnor mal. # Lymphs (test code = 0.99 See_Comment L [Auto mated message] 414) The system [employer] generated this result transmitted ref erence range: 1.18 - 3 .74 K/L. The refe rence range was not u sed to interpret this result as normal/abnor mal. # Monos (test code = 0.83 See_Comment H [Autom ated message] 415) The system [employer] generated this result transmitted ref erence range: 0.24 - 0 .36 K/L. The refe rence range was not u sed to interpret this result as normal/abnor mal. # Eos (test code = 416) 0.33 See_Comment [Au tomated message] The system [employer] generated this result transmitted ref erence range: 0.04 - 0 .36 K/L. The refe rence range was not u sed to interpret this result as normal/abnor mal. # Baso (test code = 417) 0.04 See_Comment [A utomated message] The system [employer] generated this result transmitted ref erence range: 0.01 - 0 .08 K/L. The refe rence range was not u sed to interpret this result as normal/abnor mal. Immature 1 % 0-1 Granulocytes-Relative (test code = 2801) Lab Interpretation (test Abnormal code = 19375-9) [facility] W/PLT COUNT & AUTO [id number] 06:38:55 Test Item Value Reference Range Interpretation [...] = 2801) CBC W/PLT COUNT & AUTO [id number] 10:18:58 Test Item Value Reference Range Interpretation [...] (BEAKER) (test code = 2801) BASIC METABOLIC [id number] 08:06:00 Test Item Value Reference Range Interpretation [...] S NOT APPLICABLE FOR DIALYSIS PATIEN TS. Manager Of Finance ID - MARLON Ferrera moderately ictericHEPATIC FUNCTION [id number] 08:06:00 Test Item Value Reference Range Interpretation [...] (test code = 19 U/L 6-55 347) Manager Of Finance ID - MARLON Ferrera moderately ictericPROTHROMBIN TIME/[id number] 07:51:15 Test Item Value Reference Range Interpretation Comments PROTIME (BEAKER) 20.6 seconds 11.9-14.2 H (test code = 759) INR (BEAKER) (test 1.80 See_Comment [Automat ed message] code = 370) The system [employer] generated this result transmitted ref erence range: <=5.90. The reference range was not used to int erpret this result as normal/abnormal . RECOMMENDED COUMADIN/WARFARIN INR THERAPY RANGESSTANDARD DOSE: 2.0 - 3.0 Includes: PROPHYLAXIS for venous thrombosis, systemic embolization; TREATMENT for venous thrombosis and/or pulmonary embolus.HIGH RISK: Target INR is 2.5-3.5 for patients with mechanical heart valves.HEPATIC FUNCTION [id number] 07:41:30 Test Item Value Reference Range Interpretation [...] (test code = 21 U/L 6-55 347) Manager Of Finance ID - MARLON Tothimekorin moderately ictericBASIC METABOLIC [id number] 07:41:29 Test Item Value Reference Range Interpretation [...] S NOT APPLICABLE FOR DIALYSIS PATIEN TS. Manager Of Finance ID - PIRADHA LSpecimen moderately ictericPROTHROMBIN TIME/[id number] 07:34:58 Test Item Value Reference Range Interpretation Comments PROTIME (BEAKER) 19.3 seconds 11.9-14.2 H (test code = 759) INR (BEAKER) (test 1.66 See_Comment [Automat ed message] code = 370) The system [employer] generated this result transmitted ref erence range: <=5.90. The reference range was not used to int erpret this result as normal/abnormal . RECOMMENDED COUMADIN/WARFARIN INR THERAPY RANGESSTANDARD DOSE: 2.0 - 3.0 Includes: PROPHYLAXIS for venous thrombosis, systemic embolization; TREATMENT for venous thrombosis and/or pulmonary embolus.HIGH RISK: Target INR is 2.5-3.5 for patients with mechanical heart valves.CBC W/PLT COUNT & AUTO [id number] 07:30:35 Test Item Value Reference Range Interpretation [...] PERCENT (BEAKER) (test code = 2801) VITAMIN [id number] 07:00:04 Test Item Value Reference Range Interpretation Comments VITAMIN B12 (BEAKER) (test code = > pg/mL 213-816 H 774) Manager Of Finance GINA FRANK WBASIC METABOLIC [id number] 06:43:51 Test Item Value Reference Range Interpretation [...] S NOT APPLICABLE FOR DIALYSIS PATIEN TS. Manager Of Finance ID - ZAC WOperator GINA MASON LSpecimen slightly ictericVITAMIN D, 10-UDZGIAA6302-21-01 05:27:33 Test Item Value Reference Range Interpretation Comments VITAMIN D 25-OH (BEAKER) (test code 4.4 ng/mL 6.6-49.9 L = 2764) Effective 05/22/2017: Reference Range ChangeNew: 6.6-49.9 ng/mL Previous: 13.0- 47.8 ng/mLRecommendedVitamin D Target Range: 30.0-40.0 ng/mLOperator ID Ajay MASON LC-REACTIVE [id number] 05:23:46 Test Item Value Reference Range Interpretation Comments C-REACTIVE PROTEIN (BEAKER) (test 1.00 mg/dL 0.00-0.50 H code = 676) Manager Of Finance ID - ZAC [id number] 05:23:45 Test Item Value Reference Range Interpretation Comments MAGNESIUM (BEAKER) (test code = 1.6 mg/dL 1.6-2.6 627) Manager Of Finance ID - ZAC WHEPATIC FUNCTION [id number] 05:23:45 Test Item Value Reference Range Interpretation [...] (test code = 17 U/L 6-55 347) Manager Of Finance ID - ZAC WSpecimen slightly ictericPROTHROMBIN TIME/[id number] 04:53:27 Test Item Value Reference Range Interpretation Comments PROTIME (BEAKER) 22.4 seconds 11.9-14.2 H (test code = 759) INR (BEAKER) (test 2.00 See_Comment [Automat ed message] code = 370) The system ByRead generated this result transmitted ref erence range: <=5.90. The reference range was not used to int erpret this result as normal/abnormal . RECOMMENDED COUMADIN/WARFARIN INR THERAPY RANGESSTANDARD DOSE: 2.0 - 3.0 Includes: PROPHYLAXIS for venous thrombosis, systemic embolization; TREATMENT for venous thrombosis and/or pulmonary embolus.HIGH RISK: Target INR is 2.5-3.5 for patients with mechanical heart valves.CBC W/PLT COUNT & AUTO [id number] 04:49:49 Test Item Value Reference Range Interpretation [...] (BEAKER) (test code = 2801) Basic Metabolic Uqgsi5199-74-63 08:26:03 Test Item Value Reference Range Interpretation Comments Sodium (test code = 137 meq/L 476-979 9481-2) Potassium (test code 3.5 meq/L 3.5-5.1 = 2823-3) Chloride (test code = 109 meq/L 98-107 H 2075-0) CO2 (test code = 24 meq/L 22-29 2028-9) BUN (test code = 13 mg/dL 7-21 3094-0) Creatinine (test code 0.73 mg/dL 0.57-1.25 = 2160-0) Glucose (test code = 85 mg/dL 70-105 2345-7) Calcium (test code = 7.7 mg/dL 8.4-10.2 L 50673-2) EGFR (test code = 81 mL/min/1.73 [place] [address]-1) NOT ACCURATE CREATININE CLEARANCE IN PREDICTING GLOMERULAR FILTRATION RATE . ESTIMATED GFR I S NOT APPLICABLE FOR DIALYSIS PATIENTS. REJI (test code = REJI) Manager Of Finance ID - ELODIARADHA Nadya ID - DBSpecimen slightly icteric Lab Interpretation Abnormal (test code = 02684-9) [facility] [id number] 08:26:03 Test Item Value Reference Range Interpretation [...] S NOT APPLICABLE FOR DIALYSIS PATIEN TS. Manager Of Finance ID - MARLON [place] ID - DBSpecimen slightly ictericHepatic function qzgww8250-08-13 07:24:45 Test Item Value Reference Range Interpretation Comments Protein, Total (test 4.9 See_Comment L [Autom ated code = 2885-2) message] The system which generated this result transmitted reference range : 6.0 - 8.3 gm/dL . The reference range was not used to interpr et this result as normal/abnormal . Albumin (test code = 2.2 g/dL 3.5-5.0 L 88871-9) Total Bilirubin (test 4.0 mg/dL 0.2-1.2 H code = 1974-2) Bilirubin, Direct 1.5 mg/dL 0.1-0.5 H (test code = 1967-7) Alkaline Phosphatase 111 U/L 40-150 (test code = 6768-6) AST (test code = 53 U/L 5-34 H 1920-8) ALT (test code = 17 U/L 6-55 1742-6) REJI (test code = REJI) Manager Of Finance ID - MARLON LSpecimekorin slightly icteric Lab Interpretation Abnormal (test code = 94051-8) [facility] 07:24:45 Test Item Value Reference Range Interpretation Comments Magnesium (test code = 1.7 mg/dL 1.6-2.6 41824-6) REJI (test code = REJI) Manager Of Finance ID Ajay Zapien Lab Interpretation (test Normal code = 10913-6) [facility] 07:24:45 Test Item Value Reference Range Interpretation Comments MAGNESIUM (BEAKER) (test code = 1.7 mg/dL 1.6-2.6 627) Manager Of Finance ID Ajay MASON LHEPATIC FUNCTION [id number] 07:24:45 Test Item Value Reference Range Interpretation [...] (test code = 17 U/L 6-55 347) Manager Of Finance ID Ajay MASON LSpecimen slightly ictericProthrombin time/[id number] 06:40:57 Test Item Value Reference Interpretation Comments [...] valves. Lab Interpretation Abnormal (test code = 96888-0) [facility]/[id number] 06:40:57 Test Item Value Reference Range Interpretation Comments PROTIME (BEAKER) 22.5 seconds 11.9-14.2 H (test code = 759) INR (BEAKER) (test 2.01 See_Comment [Automat ed message] code = 370) The system ByRead generated this result transmitted ref erence range: <=5.90. The reference range was not used to int erpret this result as normal/abnormal . RECOMMENDED COUMADIN/WARFARIN INR THERAPY RANGESSTANDARD DOSE: 2.0 - 3.0 Includes: PROPHYLAXIS for venous thrombosis, systemic embolization; TREATMENT for venous thrombosis and/or pulmonary embolus.HIGH RISK: Target INR is 2.5-3.5 for patients with mechanical heart valves.CBC with platelet count + automated lqjk1611-85-46 06:36:06 Test Item Value Reference Range Interpretation Comments WBC (test code = 6690-2) 10.6 See_Comment H [A utomated message] The system ByRead generated this result transmitted ref erence range: 3.5 - 10 .5 K/L. The refe rence range was not u sed to interpret this result as normal/abnor mal. RBC (test code = 789-8) 2.76 See_Comment L [Au tomated message] The system ByRead generated this result transmitted ref erence range: 3.93 - 5 .22 M/L. The refe rence range was not u sed to interpret this result as normal/abnor mal. MCHC (test code = 786-4) 31.5 See_Comment L [A utomated message] The system ByRead generated this result transmitted ref erence range: [...] L [Aut omated message] 777-3) The system ByRead generated this result transmitted ref erence range: 150 - 45 0 K/CU MM. The referen ce range was not u sed to interpret this result as normal/abnor mal. MPV (test code = 9.6 fL 9.4-12.3 42503-1) nRBC (test code = 413) 0 See_Comment [Aut omated message] The system ByRead generated this result transmitted ref erence range: [...] H [Aut omated message] 670) The system ByRead generated this result transmitted ref erence range: 1.56 - 6 .13 K/L. The refe rence range was not u sed to interpret this result as normal/abnor mal. # Lymphs (test code = 1.18 See_Comment [Auto mated message] 414) The system ByRead generated this result transmitted ref erence range: 1.18 - 3 .74 K/L. The refe rence range was not u sed to interpret this result as normal/abnor mal. # Monos (test code = 0.64 See_Comment H [Autom ated message] 415) The system ByRead generated this result transmitted ref erence range: 0.24 - 0 .36 K/L. The refe rence range was not u sed to interpret this result as normal/abnor mal. # Eos (test code = 416) 0.31 See_Comment [Au tomated message] The system ByRead generated this result transmitted ref erence range: 0.04 - 0 .36 K/L. The refe rence range was not u sed to interpret this result as normal/abnor mal. # Baso (test code = 417) 0.02 See_Comment [A utomated message] The system ByRead generated this result transmitted ref erence range: 0.01 - 0 .08 K/L. The refe rence range was not u sed to interpret this result as normal/abnor mal. Immature 1 % 0-1 Granulocytes-Relative (test code = 2801) Lab Interpretation (test Abnormal code = 81880-7) [facility] W/PLT COUNT & AUTO [id number] 06:36:06 Test Item Value Reference Range Interpretation [...] (BEAKER) (test code = 2801) BASIC METABOLIC [id number] 09:04:28 Test Item Value Reference Range Interpretation [...] S NOT APPLICABLE FOR DIALYSIS PATIEN TS. Manager Of Finance ID - DBSpecimen moderately wycetycWYDPPHIGD8110-72-10 08:26:10 Test Item Value Reference Range Interpretation Comments MAGNESIUM (BEAKER) (test code = 1.8 mg/dL 1.6-2.6 627) Manager Of Finance ID - DBHEPATIC FUNCTION [id number] 08:26:10 Test Item Value Reference Range Interpretation [...] (test code = 17 U/L 6-55 347) Manager Of Finance ID - DBSpecimen moderately ictericPROTHROMBIN TIME/[id number] 07:14:13 Test Item Value Reference Range Interpretation Comments PROTIME (BEAKER) 23.1 seconds 11.9-14.2 H (test code = 759) INR (BEAKER) (test 2.08 See_Comment [Automat ed message] code = 370) The system ByRead generated this result transmitted ref erence range: <=5.90. The reference range was not used to int erpret this result as normal/abnormal . RECOMMENDED COUMADIN/WARFARIN INR THERAPY RANGESSTANDARD DOSE: 2.0 - 3.0 Includes: PROPHYLAXIS for venous thrombosis, systemic embolization; TREATMENT for venous thrombosis and/or pulmonary embolus.HIGH RISK: Target INR is 2.5-3.5 for patients with mechanical heart valves.CBC W/PLT COUNT & AUTO [id number] 07:07:41 Test Item Value Reference Range Interpretation [...] (BEAKER) (test code = 2801) BASIC METABOLIC [id number] 09:04:18 Test Item Value Reference Range Interpretation [...] S NOT APPLICABLE FOR DIALYSIS PATIEN TS. Manager Of Finance ID - DBOperator ID - DBSpecimen moderately ictericHEPATIC FUNCTION [id number] 07:53:06 Test Item Value Reference Range Interpretation [...] (test code = 16 U/L 6-55 347) Manager Of Finance ID - DBSpecimen moderately ictericManual Kbtqyjhuiysa2478-74-56 07:50:25 Test Item Value Reference Range Interpretation [...] Ovalocytes (test code = 1+ few 477) [place] Cells (test code = 1+ few 474) Artifact (test code = Present 3432) Platelet Conc (test code Decreased = 3438) REJI (test code = REJI) Manager Of Finance ID - michaela balsaraUser comments: Slide comments: Lab Interpretation (test Abnormal code = 68315-0) [facility] Trevhwqfcpbz6684-24-77 07:50:25 Test Item Value Reference Range Interpretation [...] = 3438) REJI (test code = REJI) Manager Of Finance ID - michaela balsaraUser comments: Slide comments: Lab Interpretation (test Abnormal code = 53685-7) [facility] Shvdwjkalzba5401-69-09 07:50:25 Test Item Value Reference Range Interpretation [...] Ovalocytes (test code = 1+ few 477) [place] Cells (test code = 1+ few 474) Artifact (test code = Present 3432) Platelet Conc (test code Decreased = 3438) REJI (test code = REJI) Manager Of Finance ID - michaela Cutler comments: Slide comments: Lab Interpretation (test Abnormal code = 99725-2) [facility] Nhktuuizgmhz3495-39-52 07:50:25 Test Item Value Reference Range Interpretation [...] Ovalocytes (test code = 1+ few 477) [place] Cells (test code = 1+ few 474) Artifact (test code = Present 3432) Platelet Conc (test code Decreased = 3438) REJI (test code = REJI) Manager Of Finance ID - michaela Cutler comments: Slide comments: Lab Interpretation (test Abnormal code = 49833-7) [facility](CELLAVISION MANUAL DIFF)2021-09-09 07:50:25 Test Item Value [...] CONCENTRATION Decreased (CELLAVISION)(BEAKER) (test code = 3438) Manager Of Finance ID - michaela Cutler comments: Slide comments:CBC W/PLT COUNT & AUTO NCQXUNJVMRQB3898-34-63 07:50:24 Test Item Value Reference Range Interpretation [...] WBC 0-0 (test code = 413) PROTHROMBIN TIME/[id number] 06:28:05 Test Item Value Reference Range Interpretation Comments PROTIME (BEAKER) 24.0 seconds 11.9-14.2 H (test code = 759) INR (BEAKER) (test 2.18 See_Comment [Automat ed message] code = 370) The system ByRead generated this result transmitted ref erence range: [...] = No growth in 5 days 6463-4) [facility] Culture - Routine (Right Venipuncture) 2021-09-08 14:01:01 Test Item Value Reference Range Interpretation Comments Result (test code = No growth in 5 days 6463-4) [facility] Culture - Routine (Right Venipuncture) 2021-09-08 14:01:01 Test Item Value Reference Range Interpretation Comments Result (test code = No growth in 5 days 6463-4) [facility] Culture - Routine (Right Venipuncture) 2021-09-08 14:01:01 Test Item Value Reference Range Interpretation Comments Result (test code = No growth in 5 days 6463-4) [id number]:01:01 Test Item Value Reference Range Interpretation Comments CULTURE (BEAKER) (test No growth in 5 days code = 1095) Jhemnhb1942-37-70 11:09:32 Test Item Value Reference Range Interpretation Comments Ammonia (test code = 35 See_Comment [Autom ated 53339-5) message] The system which generated this result transmit barron reference range : 18 - 72 mol/L . The reference range was not u sed to interpret th is result as normal/abnormal . REJI (test code = REJI) Manager Of Finance ID - PIAYA L Lab Interpretation Normal (test code = 49562-8) [facility]32 Test Item Value Reference Range Interpretation Comments Ammonia (test code = 35 See_Comment [Autom ated 36191-8) message] The system which generated this result transmit barron reference range : 18 - 72 mol/L . The reference range was not u sed to interpret th is result as normal/abnormal . REJI (test code = REJI) Manager Of Finance ID - PIAYA L Lab Interpretation Normal (test code = 84576-0) [facility] 11:09:32 Test Item Value Reference Range Interpretation Comments Ammonia (test code = 35 See_Comment [Autom ated 50421-8) message] The system which generated this result transmit barron reference range : 18 - 72 mol/L . The reference range was not u sed to interpret th is result as normal/abnormal . REJI (test code = REJI) Manager Of Finance ID - PIAYA L Lab Interpretation Normal (test code = 17826-1) [facility] [place] [facility]2022-01-28 11:09:32 Test Item Value Reference Range Interpretation Comments Ammonia (test code = 35 See_Comment [Autom ated 06909-0) message] The system which generated this result transmit barron reference range : 18 - 72 mol/L . The reference range was not u sed to interpret th is result as normal/abnormal . REJI (test code = REJI) Manager Of Finance ID - PIAYA L Lab Interpretation Normal (test code = 86612-5) [facility]2022-01-28 11:09:32 Test Item Value Reference Range Interpretation Comments AMMONIA (BEAKER) (test code = 348) 35 mol/L 18-72 Manager Of Finance ID - PIAYA LCBC W/PLT COUNT & AUTO [id number] 07:57:44 Test Item Value Reference Range Interpretation [...] CONCENTRATION Decreased (CELLAVISION)(BEAKER) (test code = 3438) Manager Of Finance GINA Ferguson comments: Slide comments:BASIC METABOLIC [id number] 06:46:23 Test Item Value Reference Range Interpretation [...] S NOT APPLICABLE FOR DIALYSIS PATIEN TS. Manager Of Finance GINA WOODSpecimen slightly pgxliyrXmejzfafwa1896-95-10 06:42:47 Test Item Value Reference Range Interpretation Comments Phosphorus (test code = 2.4 mg/dL 2.3-4.7 2777-1) REJI (test code = REJI) Manager Of Finance GINA Neal Lab Interpretation (test Normal code = 75285-5) [facility] 06:42:47 Test Item Value Reference Range Interpretation Comments Phosphorus (test code = 2.4 mg/dL 2.3-4.7 2777-1) REJI (test code = REJI) Manager Of Finance ID - ZAC W Lab Interpretation (test Normal code = 87193-2) [facility] 06:42:47 Test Item Value Reference Range Interpretation Comments Phosphorus (test code = 2.4 mg/dL 2.3-4.7 2777-1) REJI (test code = REJI) Manager Of Finance ID Ajay FRANK W Lab Interpretation (test Normal code = 63666-1) [facility] 06:42:47 Test Item Value Reference Range Interpretation Comments Phosphorus (test code = 2.4 mg/dL 2.3-4.7 2777-1) REJI (test code = REJI) Manager Of Finance ID Ajay FRANK W Lab Interpretation (test Normal code = 47645-8) [facility] 06:42:47 Test Item Value Reference Range Interpretation Comments PHOSPHORUS (BEAKER) (test code = 2.4 mg/dL 2.3-4.7 604) Manager Of Finance ID - ZAC WHEPATIC FUNCTION [id number] 06:42:47 Test Item Value Reference Range Interpretation [...] (test code = 15 U/L 6-55 347) Manager Of Finance ID - ZAC WSpecimen slightly ictericPROTHROMBIN TIME/[id number] 05:37:24 Test Item Value Reference Range Interpretation Comments PROTIME (BEAKER) 26.6 seconds 11.9-14.2 H (test code = 759) INR (BEAKER) (test 2.48 See_Comment [Automat ed message] code = 370) The system ByRead generated this result transmitted ref erence range: [...] CONCENTRATION Decreased (CELLAVISION)(BEAKER) (test code = 3438) Manager Of Finance ID - Cindy Gibson comments: Slide comments:CBC W/PLT COUNT & AUTO IRBCAYTOZHPI0737-00-00 09:40:43 Test Item Value Reference Range Interpretation [...] 0-0 (test code = 413) BASIC METABOLIC [id number] 07:22:45 Test Item Value Reference Range Interpretation [...] S NOT APPLICABLE FOR DIALYSIS PATIEN TS. Manager Of Finance ID - ELODIAAYA LSpecimen slightly fendeqlWOSKLZQNJX1711-94-14 07:16:27 Test Item Value Reference Range Interpretation Comments PHOSPHORUS (BEAKER) (test code = 2.2 mg/dL 2.3-4.7 L 604) Manager Of Finance ID - PIAYA LHEPATIC FUNCTION DFHPS1129-89-15 07:16:27 Test Item Value Reference Range Interpretation [...] (test code = 17 U/L 6-55 347) Manager Of Finance ID - MARLON Ferrera slightly ictericBLOOD SXUBJSC6025-67-88 07:00:33 Test Item Value Reference Range Interpretation Comments CULTURE (BEAKER) (test No growth in 5 days code = 1095) PROTHROMBIN TIME/[id number] 06:15:38 Test Item Value Reference Range Interpretation Comments PROTIME (BEAKER) 25.1 seconds 11.9-14.2 H (test code = 759) INR (BEAKER) (test 2.31 See_Comment [Automat ed message] code = 370) The system ByRead generated this result transmitted ref erence range: <=5.90. The reference range was not used to int erpret this result as normal/abnormal . RECOMMENDED COUMADIN/WARFARIN INR THERAPY RANGESSTANDARD DOSE: 2.0 - 3.0 Includes: PROPHYLAXIS for venous thrombosis, systemic embolization; TREATMENT for venous thrombosis and/or pulmonary embolus.HIGH RISK: Target INR is 2.5-3.5 for patients with mechanical heart valves.Ova and Parasite Txyunhyubuf7572-22-25 08:26:13 Test Item Value Reference Range Interpretation Comments O&P Direct Smear (test No ova or parasites No ova or code = 23609-6) seen parasites seen REJI (test code = REJI) See scanned report Lab Interpretation (test Normal code = 69702-8) [facility] and Parasite Pzzvwvuerbl2089-92-60 08:26:13 Test Item Value Reference Range Interpretation Comments O&P Direct Smear (test No ova or parasites No ova or code = 63991-4) seen parasites seen REJI (test code = REJI) See scanned report Lab Interpretation (test Normal code = 07462-6) [facility] and Parasite Fqyupfykbck2850-43-78 08:26:13 Test Item Value Reference Range Interpretation Comments O&P Direct Smear (test No ova or parasites No ova or code = 53512-8) seen parasites seen REJI (test code = REJI) See scanned report Lab Interpretation (test Normal code = 28343-8) [facility] and Parasite Svcsxmrazul2905-19-71 08:26:13 Test Item Value Reference Range Interpretation Comments O&P Direct Smear (test No ova or parasites No ova or code = 06078-3) seen parasites seen REJI (test code = REJI) See scanned report Lab Interpretation (test Normal code = 94971-8) [facility] 07:29:32 Test Item Value Reference Range Interpretation Comments PHOSPHORUS (BEAKER) (test code = 1.5 mg/dL 2.3-4.7 LL 604) Manager Of Finance ID Ajay FRANK WBASIC METABOLIC [id number] 07:09:27 Test Item Value Reference Range Interpretation [...] S NOT APPLICABLE FOR DIALYSIS PATIEN TS. Manager Of Finance ID Ajay FRANK WSpecimen slightly ictericPROTHROMBIN TIME/[id number] 06:57:19 Test Item Value Reference Range Interpretation Comments PROTIME (BEAKER) 23.2 seconds 11.9-14.2 H (test code = 759) INR (BEAKER) (test 2.09 See_Comment [Automat ed message] code = 370) The system ByRead generated this result transmitted ref erence range: [...] CONCENTRATION Decreased (CELLAVISION)(BEAKER) (test code = 3438) Manager Of Finance ID - nabil rinconDianahunter comments: Slide comments:DUPZBZOSUU9709-12-49 15:08:54 Test Item Value Reference Range Interpretation Comments PHOSPHORUS (BEAKER) (test code = 1.2 mg/dL 2.3-4.7 LL 604) Manager Of Finance ID - BSBASIC METABOLIC [id number] 15:04:30 Test Item Value Reference Range Interpretation [...] S NOT APPLICABLE FOR DIALYSIS PATIEN TS. Manager Of Finance ID - BSSpecimen slightly ictericHEPATIC FUNCTION [id number] 15:02:35 Test Item Value Reference Range Interpretation [...] (test code = 17 U/L 6-55 347) Manager Of Finance ID - BSSpecimen slightly ictericPROTHROMBIN TIME/[id number] 14:50:10 Test Item Value Reference Range Interpretation Comments PROTIME (BEAKER) 24.9 seconds 11.9-14.2 H (test code = 759) INR (BEAKER) (test 2.28 See_Comment [Automat ed message] code = 370) The system ByRead generated this result transmitted ref erence range: <=5.90. The reference range was not used to int erpret this result as normal/abnormal . RECOMMENDED COUMADIN/WARFARIN INR THERAPY RANGESSTANDARD DOSE: 2.0 - 3.0 Includes: PROPHYLAXIS for venous thrombosis, systemic embolization; TREATMENT for venous thrombosis and/or pulmonary embolus.HIGH RISK: Target INR is 2.5-3.5 for patients with mechanical heart valves.CBC W/PLT COUNT & AUTO [id number] 14:44:53 Test Item Value Reference Range Interpretation [...] (test code = 413) Clostridium difficile GDH Fqeov3175-94-62 21:23:26 Test Item Value Reference Range Interpretation Comments C. Difficle Toxin Positive Negative A (test code = 4764852300) C. Difficile GDH Positive Negative A Confirms Antigen (test code = Clostri dium 7961815859) difficile-assoc ia barron infection.First line therapy - [...] use. Lab Interpretation Abnormal (test code = 90375-7) [facility] Tkhna2903-03-19 21:23:26 Test Item Value Reference Range Interpretation Comments C. Difficle Toxin Positive Negative A (test code = 1477123009) C. Difficile GDH Positive Negative A Confirms Antigen (test code = Clostri dium 6367627381) difficile-assoc ia barron infection.First line therapy - [...] use. Lab Interpretation Abnormal (test code = 41831-5) [facility] Teobc7447-11-80 21:23:26 Test Item Value Reference Range Interpretation Comments C. Difficle Toxin Positive Negative A (test code = 3323863886) C. Difficile GDH Positive Negative A Confirms Antigen (test code = Clostri dium 0754431226) difficile-assoc ia barron infection.First line therapy - [...] use. Lab Interpretation Abnormal (test code = 15298-9) [facility] Lphct2431-11-63 21:23:26 Test Item Value Reference Range Interpretation Comments C. Difficle Toxin Positive Negative A (test code = 7026110143) C. Difficile GDH Positive Negative A Confirms Antigen (test code = Clostri dium 8851420267) difficile-assoc ia barron infection.First line therapy - [...] use. Lab Interpretation Abnormal (test code = 57908-8) [facility] DI[facility]IC[facility] [id number] 21:23:26 Test Item Value Reference Range Interpretation Comments CDT TOXIN (test code Positive Negative A = 8496420264) CDT GDH ANTIGEN Positive Negative A Confirms Maria Esther stridium (test code = difficile-assoc iated [id number]) infection.First line therapy - oral Vancomycin. Con [...] MicrobiologyLab prior to clinical use.CT, CHEST, WITH [id number] 10:14:00Unlisted Reason for Exam - Click Yes and Enter Reason Below->No [facility] : 1960 Sex: [...] prominent spleen. Small volumeascites. Signed: Quentin Sims MDReport Verified Date/Time: 09/04/2021 10:14:08 CT, [id number] 10:14:00Unlisted Reason for Exam - Click Yes and Enter Reason Below->No Is this for enterography?->YesWill this procedure require oral contrast?->Yes [facility] : 1960 Sex: [...] prominent spleen. Small volumeascites. Signed: Quentin Sims MDReport Verified Date/Time: 09/04/2021 10:14:08 (CELLAVISION MANUAL DIFF) 2021-09-04 07:25:33 Test Item Value Reference Range Interpretation [...] CONCENTRATION Decreased (CELLAVISION)(BEAKER) (test code = 3438) Manager Of Finance ID - michaela Cutler comments: Slide comments:CBC W/PLT COUNT & AUTO [id number] 07:25:32 Test Item Value Reference Range Interpretation [...] /100 WBC 0-0 (test code = 413) [id number] 06:26:19 Test Item Value Reference Range Interpretation Comments PHOSPHORUS (BEAKER) (test code = 1.5 mg/dL 2.3-4.7 LL 604) Manager Of Finance GINA FRANK WComprehensive metabolic [id number] 06:18:30 Test Item Value Reference Range Interpretation Comments Protein, Total (test 4.7 See_Comment L [Autom ated code = 2885-2) message] The system which generated this result transmitted reference range : 6.0 - 8.3 gm/dL . The reference range was not used to interpr et this result as normal/abnormal . Albumin (test code = 2.7 g/dL 3.5-5.0 L 44945-3) Alkaline Phosphatase 85 U/L 40-150 (test code [...] (test code = 7.3 mg/dL 8.4-10.2 L 45498-5) AST (test code = 28 U/L 5-34 1920-8) ALT (test code = 14 U/L 6-55 2-6) EGFR (test code = 53 mL/min/1.73 [place] [address]-9) NOT ACCURATE CREATININE CLEARANCE IN PREDICTING GLOMERULAR FILTRATION RATE . ESTIMATED GFR I S NOT APPLICABLE FOR DIALYSIS PATIENTS. REJI (test code = REJI) Manager Of Finance GINA - ZAC Rosales slightly icteric Lab Interpretation Abnormal (test code = 78209-3) [facility] [id number] 06:18:30 Test Item Value Reference Range Interpretation Comments Protein, Total (test 4.7 See_Comment L [Autom ated code = 2885-2) message] The system which generated this result transmitted reference range : 6.0 - 8.3 gm/dL . The reference range was not used to interpr et this result as normal/abnormal . Albumin (test code = 2.7 g/dL 3.5-5.0 L 36533-1) Alkaline Phosphatase 85 U/L 40-150 (test code [...] (test code = 7.3 mg/dL 8.4-10.2 L 51383-2) AST (test code = 28 U/L 5-34 1920-8) ALT (test code = 14 U/L 6-55 1742-6) EGFR (test code = 53 mL/min/1.[place] [address]-6) NOT ACCURATE CREATININE CLEARANCE IN PREDICTING GLOMERULAR FILTRATION RATE . ESTIMATED GFR I S NOT APPLICABLE FOR DIALYSIS PATIENTS. REJI (test code = REJI) Manager Of Finance ID - ZAC Rosales slightly icteric Lab Interpretation Abnormal (test code = 09347-9) [facility] [id number] 06:18:30 Test Item Value Reference Range Interpretation Comments Protein, Total (test 4.7 See_Comment L [Autom ated code = 2885-2) message] The system which generated this result transmitted reference range : 6.0 - 8.3 gm/dL . The reference range was not used to interpr et this result as normal/abnormal . Albumin (test code = 2.7 g/dL 3.5-5.0 L 90585-0) Alkaline Phosphatase 85 U/L 40-150 (test code [...] (test code = 7.3 mg/dL 8.4-10.2 L 34293-5) AST (test code = 28 U/L 5-34 1920-8) ALT (test code = 14 U/L 6-55 1742-6) EGFR (test code = 53 mL/min/1.[place] [address]-9) NOT ACCURATE CREATININE CLEARANCE IN PREDICTING GLOMERULAR FILTRATION RATE . ESTIMATED GFR I S NOT APPLICABLE FOR DIALYSIS PATIENTS. REJI (test code = REJI) Manager Of Finance ID - ZAC WOODSpecnicole slightly icteric Lab Interpretation Abnormal (test code = 88554-2) [facility] [id number] 06:18:30 Test Item Value Reference Range Interpretation Comments Protein, Total (test 4.7 See_Comment L [Autom ated code = 2885-2) message] The system which generated this result transmitted reference range : 6.0 - 8.3 gm/dL . The reference range was not used to interpr et this result as normal/abnormal . Albumin (test code = 2.7 g/dL 3.5-5.0 L 95376-7) Alkaline Phosphatase 85 U/L 40-150 (test code [...] (test code = 7.3 mg/dL 8.4-10.2 L 04287-2) AST (test code = 28 U/L 5-34 1920-8) ALT (test code = 14 U/L 6-55 1742-6) EGFR (test code = 53 mL/min/1.[place] [address]-8) NOT ACCURATE CREATININE CLEARANCE IN PREDICTING GLOMERULAR FILTRATION RATE . ESTIMATED GFR I S NOT APPLICABLE FOR DIALYSIS PATIENTS. REJI (test code = REJI) Manager Of Finance ID Ajay Rosales slightly icteric Lab Interpretation Abnormal (test code = 46534-6) [facility] [id number] 06:18:30 Test Item Value Reference Range Interpretation [...] S NOT APPLICABLE FOR DIALYSIS PATIEN TS. Manager Of Finance ID - ZAC WSpecimen slightly [id number] 06:13:05 Test Item Value Reference Range Interpretation Comments MAGNESIUM (BEAKER) (test code = 2.3 mg/dL 1.6-2.6 627) Manager Of Finance ID - ZAC W(CELLAVISION MANUAL DIFF)2021-09-03 14:33:56 [...] CONCENTRATION Decreased (CELLAVISION)(BEAKER) (test code = 3438) Manager Of Finance ID - Claudine Rios comments: Slide comments:CBC W/PLT COUNT & AUTO [id number] 14:33:55 Test Item Value Reference Range Interpretation [...] (test code = 413) Hepatitis B surface rpkqmmie4771-59-27 13:30:11 Test Item Value Reference Range Interpretation Comments Hep B S Ab (test code <8.0 See_Comment [Auto mated = 00573-3) message] The system which generated this result transmit barron reference range : <8.0 mIU/mL. Th e reference range was not used to interpret this result as normal/abnormal . REJI (test code = REJI) Manager Of Finance ID - MARLON L Lab Interpretation Normal (test code = 09775-0) [facility] B surface [id number] 13:30:11 Test Item Value Reference Range Interpretation Comments Hep B S Ab (test code <8.0 See_Comment [Auto mated = 52578-4) message] The system which generated this result transmit barron reference range : <8.0 mIU/mL. Th e reference range was not used to interpret this result as normal/abnormal . REJI (test code = REJI) Manager Of Finance ID - MARLON L Lab Interpretation Normal (test code = 98969-4) [facility] B surface zebacosm9077-98-03 13:30:11 Test Item Value Reference Range Interpretation Comments Hep B S Ab (test code <8.0 See_Comment [Auto mated = 64971-0) message] The system which generated this result transmit barron reference range : <8.0 mIU/mL. Th e reference range was not used to interpret this result as normal/abnormal . REJI (test code = REJI) Manager Of Finance ID - PIRADHA L Lab Interpretation Normal (test code = 51010-3) [facility] B surface [id number] 13:30:11 Test Item Value Reference Range Interpretation Comments Hep B S Ab (test code <8.0 See_Comment [Auto mated = 82282-2) message] The system which generated this result transmit barron reference range : <8.0 mIU/mL. Th e reference range was not used to interpret this result as normal/abnormal . REJI (test code = REJI) Manager Of Finance ID - PIAYA L Lab Interpretation Normal (test code = 98920-5) [facility] B SURFACE [id number] 13:30:11 Test Item Value Reference Range Interpretation Comments HEPATITIS B SURFACE ANTIBODY < mIU/mL <8.0 (BEAKER) (test code = 647) Manager Of Finance ID - MARLON LHepatitis A antibody, [id number] 13:23:53 Test Item Value Reference Range Interpretation Comments Hep A IgG (test code = Nonreactive Nonreactive 51379-3) REJI (test code = REJI) Manager Of Finance ID - PIAYA L Lab Interpretation (test Normal code = 32658-6) [facility], [id number] 13:23:53 Test Item Value Reference Range Interpretation Comments Hep A IgG (test code = Nonreactive Nonreactive 41758-1) REJI (test code = REJI) Manager Of Finance ID - PIAYA L Lab Interpretation (test Normal code = 70846-4) [facility], [id number] 13:23:53 Test Item Value Reference Range Interpretation Comments Hep A IgG (test code = Nonreactive Nonreactive 92893-6) REJI (test code = REJI) Manager Of Finance ID - PIAYA L Lab Interpretation (test Normal code = 56458-9) [facility], [id number] 13:23:53 Test Item Value Reference Range Interpretation Comments Hep A IgG (test code = Nonreactive Nonreactive 65380-8) REJI (test code = REJI) Manager Of Finance ID - PIAYA L Lab Interpretation (test Normal code = 03505-4) [facility]TIBODY, [id number] 13:23:53 Test Item Value Reference Range Interpretation Comments HEPATITIS A IGG ANTIBODY (BEAKER) Nonreactive Nonreactive (test code = 2797) Manager Of Finance ID - ELODIAAYA LHepatitis B core antibody, [id number] 13:23:52 Test Item Value Reference Range Interpretation Comments Hep B Core Total Ab Nonreactive Nonreactive (test code = 13178-6) REJI (test code = REJI) Manager Of Finance ID - PIAYA L Lab Interpretation (test Normal code = 52654-0) [facility] [id number] 13:23:52 Test Item Value Reference Range Interpretation Comments Hepatitis C Ab (test Nonreactive Nonreactive code = 37882-6) REJI (test code = REJI) Manager Of Finance ID - PIAYA L Lab Interpretation (test Normal code = 40590-4) [facility], [id number] 13:23:52 Test Item Value Reference Range Interpretation Comments Hep B Core Total Ab Nonreactive Nonreactive (test code = 43445-9) REJI (test code = REJI) Manager Of Finance ID - MARLON L Lab Interpretation (test Normal code = 56678-3) [facility] core antibody, [id number] 13:23:52 Test Item Value Reference Range Interpretation Comments Hep B Core Total Ab Nonreactive Nonreactive (test code = 07500-5) REJI (test code = REJI) Manager Of Finance ID - MARLON L Lab Interpretation (test Normal code = 07393-7) [facility] core antibody, [id number] 13:23:52 Test Item Value Reference Range Interpretation Comments Hep B Core Total Ab Nonreactive Nonreactive (test code = 47935-1) REJI (test code = REJI) Manager Of Finance ID - MARLON L Lab Interpretation (test Normal code = 69287-9) [facility] [id number] 13:23:52 Test Item Value Reference Range Interpretation Comments HEPATITIS C ANTIBODY (BEAKER) Nonreactive Nonreactive (test code = 367) Manager Of Finance ID Ajay MASON LHEPATITIS B CORE ANTIBODY, [id number] 13:23:52 Test Item Value Reference Range Interpretation Comments HEPATITIS B CORE TOTAL ANTIBODY Nonreactive Nonreactive (BEAKER) (test code = 497) Manager Of Finance ID - MARLON LHepatitis B surface [id number] 13:23:51 Test Item Value Reference Range Interpretation Comments HBsAg Screen (test code Nonreactive Nonreactive = 5195-3) REJI (test code = REJI) Specimen is considered negative for HBsAg. Lab Interpretation (test Normal code = 52044-1) [facility] B SURFACE [id number] 13:23:51 Test Item Value Reference Range Interpretation [...] S NOT APPLICABLE FOR DIALYSIS PATIEN TS. Manager Of Finance ID - MARLON LSpecimen slightly [id number] 12:58:51 Test Item Value Reference Range Interpretation Comments MAGNESIUM (BEAKER) (test code = 2.1 mg/dL 1.6-2.6 627) Manager Of Finance ID - MARLON [id number] 12:58:51 Test Item Value Reference Range Interpretation Comments PHOSPHORUS (BEAKER) (test code = 2.3 mg/dL 2.3-4.7 604) Manager Of Finance ID - MARLON LPROTHROMBIN TIME/[id number] 12:56:09 Test Item Value Reference Range Interpretation Comments PROTIME (BEAKER) 23.4 seconds 11.9-14.2 H (test code = 759) INR (BEAKER) (test 2.10 See_Comment [Automat ed message] code = 370) The system ByRead generated this result transmitted ref erence range: <=5.90. The reference range was not used to int erpret this result as normal/abnormal . RECOMMENDED COUMADIN/WARFARIN INR THERAPY RANGESSTANDARD DOSE: 2.0 - 3.0 Includes: PROPHYLAXIS for venous thrombosis, systemic embolization; TREATMENT for venous thrombosis and/or pulmonary embolus.HIGH RISK: Target INR is 2.5-3.5 for patients with mechanical heart valves.Urine [id number] 12:15:06 Test Item Value Reference Range Interpretation Comments Result (test code = 6463-4) No growth [facility] [id number] 12:15:06 Test Item Value Reference Range Interpretation Comments Result (test code = 6463-4) No growth [facility] mqoelpt5946-08-14 12:15:06 Test Item Value Reference Range Interpretation Comments Result (test code = 6463-4) No growth [facility] [id number] 12:15:06 Test Item Value Reference Range Interpretation Comments Result (test code = 6463-4) No growth [facility] Pathogen Profile by PCR -ID [id number] 12:43:22 Test Item Value Reference Range Interpretation Comments CAMPYLOBACTER (PCR) Not detected Not detected (test code = 79552-8) PLESIOMONAS SHIGELLOIDES Not detected Not detected (PCR) (test code = 09964-5) SALMONELLA (PCR) (test Not detected Not detected code = 21096-7) YERSINIA ENTEROCOLITICA Not detected Not detected (PCR) (test code = 68697-9) VIBRIO CHOLERAE (PCR) Not detected Not detected (test code = 97313-7) ENTEROAGGREGATIVE E. Not detected Not detected COLI (EAEC) BY PCR (test code = 60430-7) ENTEROPATHOGENIC E. COLI Not detected Not detected (EPEC) BY PCR (test code = 65134-5) ENTEROTOXIGENIC E. COLI Not detected Not detected (ETEC) LT/ST BY PCR (test code = 20783-0) SHIGA-LIKE Not detected Not detected TOXIN-PRODUCING E. COLI (STEC) STX1/STX2 (test code = 18480-4) E. COLI O157 (PCR) (test code = 92150-6) SHIGELLA/ENTEROINVASIVE Not detected Not detected E. COLI (EIEC) BY PCR (test code = 20656-6) CRYPTOSPORIDIUM (PCR) Not detected Not detected (test code = 85261-8) CYCLOSPORA CAYETANENSIS Not detected Not detected (PCR) (test code = 84284-4) ENTAMOEBA HISTOLYTICA Not detected Not detected (PCR) (test code = 80921-5) GIARDIA LAMBLIA (PCR) Not detected Not detected (test code = 24584-0) ADENOVIRUS F 40/41 (PCR) Not detected Not detected (test code = 44574-9) ASTROVIRUS (PCR) (test Not detected Not detected code = 26307-9) NOROVIRUS GI/GII (PCR) Not detected Not detected (test code = 02075-0) ROTAVIRUS A (PCR) (test Not detected Not detected code = 22986-1) SAPOVIRUS (I, II, IV, V) Not detected Not detected BY PCR (test code = 97315-0) VIBRIO Not detected Not detected (PARAHAEMOLYTICUS, VULNIFICUS) (test code = 20312-4) REJI (test code = REJI) Other viruses, [...] [facility] using the [employer] Gastrointestinal Panel. It is FDA cleared and has been verified and approved by the [facility] Molecular Diagnostics Laboratory for clinical use. This laboratory is CLIA-certified and [employer] ([employer])-accredited to perform high complexity testing. [facility] -ID [id number] 12:43:22 Test Item Value Reference Range Interpretation Comments CAMPYLOBACTER PCR (test Not detected Not detected code = 72396-9) PLESIOMONAS SHIGELLOIDES Not detected Not detected (PCR) (test code = 55701-6) SALMONELLA (PCR) (test Not detected Not detected code = 38839-9) YERSINIA ENTEROCOLITICA Not detected Not detected (PCR) (test code = 00145-7) VIBRIO CHOLERAE (PCR) Not detected Not detected (test code = 29979-5) ENTEROAGGREGATIVE E. Not detected Not detected COLI (EAEC) BY PCR (test code = 06375-7) ENTEROPATHOGENIC E. COLI Not detected Not detected (EPEC) BY PCR (test code = 68668-5) ENTEROTOXIGENIC E. COLI Not detected Not detected (ETEC) LT/ST BY PCR (test code = 34375-7) SHIGA-LIKE Not detected Not detected TOXIN-PRODUCING E. COLI (STEC) STX1/STX2 (test code = 14145-5) E. COLI O157 (PCR) (test code = 83589-4) SHIGELLA/ENTEROINVASIVE Not detected Not detected E. COLI (EIEC) BY PCR (test code = 30956-3) CRYPTOSPORIDIUM (PCR) Not detected Not detected (test code = 19553-4) CYCLOSPORA CAYETANENSIS Not detected Not detected (PCR) (test code = 44475-1) ENTAMOEBA HISTOLYTICA Not detected Not detected (PCR) (test code = 20799-9) GIARDIA LAMBLIA (PCR) Not detected Not detected (test code = 41781-6) ADENOVIRUS F 40/41 (PCR) Not detected Not detected (test code = 38847-9) ASTROVIRUS (PCR) (test Not detected Not detected code = 39665-6) NOROVIRUS GI/GII (PCR) Not detected Not detected (test code = 43117-9) ROTAVIRUS A (PCR) (test Not detected Not detected code = 12835-8) SAPOVIRUS (I, II, IV, V) Not detected Not detected BY PCR (test code = 43318-5) VIBRIO Not detected Not detected (PARAHAEMOLYTICUS, VULNIFICUS) (test code = 80148-9) REJI (test code = REJI) Other viruses, [...] [facility] using the [employer] Gastrointestinal Panel. It is FDA cleared and has been verified and approved by the [facility] Molecular Diagnostics Laboratory for clinical use. This laboratory is CLIA-certified and [employer] ([employer])-accredited to perform high complexity testing. [facility] -ID [id number] 12:43:22 Test Item Value Reference Range Interpretation Comments CAMPYLOBACTER PCR (test Not detected Not detected code = 45705-0) PLESIOMONAS SHIGELLOIDES Not detected Not detected (PCR) (test code = 41564-7) SALMONELLA (PCR) (test Not detected Not detected code = 43560-8) YERSINIA ENTEROCOLITICA Not detected Not detected (PCR) (test code = 23349-5) VIBRIO CHOLERAE (PCR) Not detected Not detected (test code = 06733-0) ENTEROAGGREGATIVE E. Not detected Not detected COLI (EAEC) BY PCR (test code = 75197-2) ENTEROPATHOGENIC E. COLI Not detected Not detected (EPEC) BY PCR (test code = 66517-9) ENTEROTOXIGENIC E. COLI Not detected Not detected (ETEC) LT/ST BY PCR (test code = 25255-2) SHIGA-LIKE Not detected Not detected TOXIN-PRODUCING E. COLI (STEC) STX1/STX2 (test code = 02870-8) E. COLI O157 (PCR) (test code = 83596-6) SHIGELLA/ENTEROINVASIVE Not detected Not detected E. COLI (EIEC) BY PCR (test code = 97585-0) CRYPTOSPORIDIUM (PCR) Not detected Not detected (test code = 51937-8) CYCLOSPORA CAYETANENSIS Not detected Not detected (PCR) (test code = 11268-4) ENTAMOEBA HISTOLYTICA Not detected Not detected (PCR) (test code = 91983-9) GIARDIA LAMBLIA (PCR) Not detected Not detected (test code = 30235-1) ADENOVIRUS F 40/41 (PCR) Not detected Not detected (test code = 77194-9) ASTROVIRUS (PCR) (test Not detected Not detected code = 87742-3) NOROVIRUS GI/GII (PCR) Not detected Not detected (test code = 29683-6) ROTAVIRUS A (PCR) (test Not detected Not detected code = 68922-1) SAPOVIRUS (I, II, IV, V) Not detected Not detected BY PCR (test code = 73695-0) VIBRIO Not detected Not detected (PARAHAEMOLYTICUS, VULNIFICUS) (test code = 06900-7) REJI (test code = REJI) Other viruses, [...] [facility] using the [employer] Gastrointestinal Panel. It is FDA cleared and has been verified and approved by the [facility] Molecular Diagnostics Laboratory for clinical use. This laboratory is CLIA-certified and [employer] ([employer])-accredited to perform high complexity testing. [facility] -ID [id number] 12:43:22 Test Item Value Reference Range Interpretation Comments CAMPYLOBACTER PCR (test Not detected Not detected code = 39955-7) PLESIOMONAS SHIGELLOIDES Not detected Not detected (PCR) (test code = 37274-4) SALMONELLA (PCR) (test Not detected Not detected code = 81997-8) YERSINIA ENTEROCOLITICA Not detected Not detected (PCR) (test code = 24767-9) VIBRIO CHOLERAE (PCR) Not detected Not detected (test code = 74778-3) ENTEROAGGREGATIVE E. Not detected Not detected COLI (EAEC) BY PCR (test code = 80895-9) ENTEROPATHOGENIC E. COLI Not detected Not detected (EPEC) BY PCR (test code = 64768-1) ENTEROTOXIGENIC E. COLI Not detected Not detected (ETEC) LT/ST BY PCR (test code = 23860-0) SHIGA-LIKE Not detected Not detected TOXIN-PRODUCING E. COLI (STEC) STX1/STX2 (test code = 72384-1) E. COLI O157 (PCR) (test code = 55439-8) SHIGELLA/ENTEROINVASIVE Not detected Not detected E. COLI (EIEC) BY PCR (test code = 50541-2) CRYPTOSPORIDIUM (PCR) Not detected Not detected (test code = 48276-1) CYCLOSPORA CAYETANENSIS Not detected Not detected (PCR) (test code = 56214-0) ENTAMOEBA HISTOLYTICA Not detected Not detected (PCR) (test code = 11540-0) GIARDIA LAMBLIA (PCR) Not detected Not detected (test code = 57976-9) ADENOVIRUS F 40/41 (PCR) Not detected Not detected (test code = 88787-2) ASTROVIRUS (PCR) (test Not detected Not detected code = 58736-9) NOROVIRUS GI/GII (PCR) Not detected Not detected (test code = 04264-3) ROTAVIRUS A (PCR) (test Not detected Not detected code = 38315-9) SAPOVIRUS (I, II, IV, V) Not detected Not detected BY PCR (test code = 24114-4) VIBRIO Not detected Not detected (PARAHAEMOLYTICUS, VULNIFICUS) (test code = 86583-3) REJI (test code = REJI) Other viruses, [...] [facility] using the [employer] Gastrointestinal Panel. It is FDA cleared and has been verified and approved by the [facility] Molecular Diagnostics Laboratory for clinical use. This laboratory is CLIA-certified and [employer] ([employer])-accredited to perform high complexity testing. [facility] BY [id number] 12:43:22 Test Item Value Reference Range Interpretation Comments CAMPYLOBACTER (PCR) (test code = Not detected Not detected 20160214) PLESIOMONAS SHIGELLOIDES (PCR) Not detected Not detected (test code = 0302199) SALMONELLA (PCR) (test code = Not detected Not detected ) YERSINIA ENTEROCOLITICA (PCR) Not detected Not detected (test code = 0588637) VIBRIO CHOLERAE (PCR) (test code Not detected Not detected = 8838638) ENTEROAGGREGATIVE E. COLI (EAEC) Not detected Not detected BY PCR (test code = 7651497) ENTEROPATHOGENIC E. COLI (EPEC) Not detected Not detected BY PCR (test code = 7911884) ENTEROTOXIGENIC E. COLI (ETEC) Not detected Not detected LT/ST BY PCR (test code = 3179001) SHIGA-LIKE TOXIN-PRODUCING E. Not detected Not detected COLI (STEC) STX1/STX2 (test code = 4820768) E. COLI O157 (PCR) (test code = 0014931) SHIGELLA/ENTEROINVASIVE E. COLI Not detected Not detected [...] (test Not detected Not detected code = 9217813) ASTROVIRUS (PCR) (test code = Not detected Not detected 20160415) NOROVIRUS GI/GII (PCR) (test Not detected Not detected code = 2555719) ROTAVIRUS A (PCR) (test code = Not detected Not detected 20160417) SAPOVIRUS (I, II, IV, V) BY PCR Not detected Not detected (test code = 6468480) VIBRIO (PARAHAEMOLYTICUS, Not detected Not detected VULNIFICUS) (test code = 1917059) Other viruses, parasites and bacteria not targeted by this PCR panel cannot be excluded; therefore clinical correlation and follow up of serology, culture results, and other molecular studies is required. The results are not intended to be used as the sole means for clinical diagnosis or patient management decisions. This sample was tested at the [facility] Molecular Diagnostics Laboratory using the [employer] Gastrointestinal Panel. It is FDA cleared and [...] CONCENTRATION Decreased (CELLAVISION)(BEAKER) (test code = 3438) Manager Of Finance GINA - Phyllis comments: Slide comments:CBC W/PLT COUNT & AUTO [id number] 08:49:57 Test Item Value Reference Range Interpretation [...] (test code = 413) Vitamin B12 and [id number] 07:20:11 Test Item Value Reference Range Interpretation Comments Vitamin B12 (test 1116 pg/mL 213-816 H code = 2132-9) Folate (test code = 3.50 ng/mL See_Comment L [Automa barron 2284-8) message] The system which generated this result transmit barron reference range : >=7.00. The reference range was not used to interpret this result as normal/abnormal . REJI (test code = REJI) Manager Of Finance ID - SHAQUILLE Reynolds Lab Interpretation Abnormal (test code = 82240-8) [facility] Wxegvf9469-00-45 07:20:11 Test Item Value Reference Range Interpretation Comments Vitamin B12 (test 1116 pg/mL 213-816 H code = 2132-9) Folate (test code = 3.50 ng/mL See_Comment L [Automa barron 2284-8) message] The system which generated this result transmit barron reference range : >=7.00. The reference range was not used to interpret this result as normal/abnormal . REJI (test code = REJI) Manager Of Finance ID - SHAQUILLE Reynolds Lab Interpretation Abnormal (test code = 16479-5) [facility] Npzkbj5270-26-57 07:20:11 Test Item Value Reference Range Interpretation Comments Vitamin B12 (test 1116 pg/mL 213-816 H code = 2132-9) Folate (test code = 3.50 ng/mL See_Comment L [Automa barron 2284-8) message] The system which generated this result transmit barron reference range : >=7.00. The reference range was not used to interpret this result as normal/abnormal . REJI (test code = REJI) Manager Of Finance ID - SHAQUILLE Reynolds Lab Interpretation Abnormal (test code = 50750-2) [facility] Btkpmi9942-90-53 07:20:11 Test Item Value Reference Range Interpretation Comments Vitamin B12 (test 1116 pg/mL 213-816 H code = 2132-9) Folate (test code = 3.50 ng/mL See_Comment L [Automa barron 2284-8) message] The system which generated this result transmit barron reference range : >=7.00. The reference range was not used to interpret this result as normal/abnormal . REJI (test code = REJI) Manager Of Finance ID - SHAQUILLE Reynolds Lab Interpretation Abnormal (test code = 69099-3) [facility] [id number] 07:20:11 Test Item Value Reference Range Interpretation Comments VITAMIN B12 (BEAKER) 1116 pg/mL 213-816 H (test code = 774) FOLATE (BEAKER) 3.50 ng/mL See_Comment L [Automated message] (test code = 362) The system which generated this result transmitted ref erence range: >=7.00. The reference range was not used to interpr et this result as normal/abnormal . Manager Of Finance ID - SHAQUILLE BETANCOURTOMPREHENSIVE METABOLIC [id number] 06:57:06 Test Item Value Reference Range Interpretation [...] S NOT APPLICABLE FOR DIALYSIS PATIEN TS. Manager Of Finance ID - SHAQUILLE MSpecimen slightly ictericC-Reactive Qxmwlek0404-34-10 06:55:26 Test Item Value Reference Range Interpretation Comments CRP (test code = 676) 4.64 mg/dL 0.00-0.50 H REJI (test code = REJI) Manager Of Finance ID - SHAQUILLE M Lab Interpretation (test Abnormal code = 26854-0) [facility] 06:55:26 Test Item Value Reference Range Interpretation Comments PHOSPHORUS (BEAKER) (test code = 1.8 mg/dL 2.3-4.7 L 604) Manager Of Finance ID - SHAQUILLE MC-REACTIVE [id number] 06:55:26 Test Item Value Reference Range Interpretation Comments C-REACTIVE PROTEIN (BEAKER) (test 4.64 mg/dL 0.00-0.50 H code = 676) Manager Of Finance ID - SHAQUILLE [id number] 06:55:25 Test Item Value Reference Range Interpretation Comments MAGNESIUM (BEAKER) (test code = 2.3 mg/dL 1.6-2.6 627) Manager Of Finance GINA CORBIN Corina, TIBC, % sat. (without ferritin)2021-09-02 06:44:00 Test Item Value Reference Range Interpretation Comments Iron (test code = 2498-4) 28.0 ug/dL 40.0-160.0 L TIBC (test code = 2500-7) 243 ug/dL 250-450 L Iron % Saturation (test 12 % 20-55 L code = 2502-3) REJI (test code = REJI) Manager Of Finance ID Ajay CORBIN M Lab Interpretation (test Abnormal code = 66209-8) [facility], % sat. (without ferritin)2021-09-02 06:44:00 Test Item Value Reference Range Interpretation Comments Iron (test code = 2498-4) 28.0 ug/dL 40.0-160.0 L TIBC (test code = 2500-7) 243 ug/dL 250-450 L Iron % Saturation (test 12 % 20-55 L code = 2502-3) REJI (test code = REJI) Manager Of Finance ID - SHAQUILLE Reynolds Lab Interpretation (test Abnormal code = 41662-8) [facility], TIBC, % sat. (without ferritin)2021-09-02 06:44:00 Test Item Value Reference Range Interpretation Comments Iron (test code = 2498-4) 28.0 ug/dL 40.0-160.0 L TIBC (test code = 2500-7) 243 ug/dL 250-450 L Iron % Saturation (test 12 % 20-55 L code = 2502-3) REJI (test code = REJI) Manager Of Finance ID - SHAQUILLE Rodolfo Lab Interpretation (test Abnormal code = 42078-9) [facility], TIBC, % sat. (without ferritin)2021-09-02 06:44:00 Test Item Value Reference Range Interpretation Comments Iron (test code = 2498-4) 28.0 ug/dL 40.0-160.0 L TIBC (test code = 2500-7) 243 ug/dL 250-450 L Iron % Saturation (test 12 % 20-55 L code = 2502-3) REJI (test code = REJI) Manager Of Finance ID - SHAQUILLE Reynolds Lab Interpretation (test Abnormal code = 32615-1) [facility], TIBC, % SAT. (WITHOUT FERRITIN)2021-09-02 06:44:00 Test Item Value Reference Range Interpretation Comments IRON (BEAKER) (test code = 547) 28.0 ug/dL 40.0-160.0 L TOTAL IRON BINDING CAPACITY 243 ug/dL 250-450 L (BEAKER) (test code = 769) IRON % SATURATION (2) (BEAKER) 12 % 20-55 L (test code = 2590) Manager Of Finance GINA CORBIN MCT, BRAIN, WITHOUT [id number] 03:54:00Unlisted Reason for Exam - Click Yes and Enter Reason Below->No [facility] 1960 Sex: FFINAL [...] MDReport Verified Date/Time: 09/02/2021 03:54:37 U/S, ABDOMINAL, [id number] 03:38:00 Abdomen limited area? Add comment if clarification is needed.->Right upper quadrantReason for exam:->evaluate biliary tree/liver [facility] 1960 Sex: FFINAL REPORT INDICATION: evaluate biliary tree/liver COMPARISON: None. TECHNIQUE: Real-timetransabdominal gomez scale and color Doppler ultrasound of the abdomen. FINDINGS: Examination extremely limited by poor acoustic windowing and patient inability to tolerate.Liver: Size: 11.4cm. Echogenicity: Increased Masses/lesions: None. Surface Nodularity: None. Intrahepatic bile ducts: Normal. MPV:0.9cm. Gallbladder: Surgically absent Pancreas: Head and uncinate [...] to tolerate examination. If there is persistent clinicalconcern recommend repeat examination when patient better able to tolerate. Increased hepatic echogenicity can be seen in setting of hepatic steatosis. Signed: [facility] Verified Date/Time: 09/02/2021 03:38:29 Urinalysis w/Microscopic + Reflex to Culture 2021-09-02 02:29:12 Test Item Value Reference Range Interpretation Comments Color, UA (test code Brown = 5778-6) Clarity, UA (test Hazy code = 5767-9) Specific [place], UA 1.029 1.001-1.035 (test code = 5811-5) pH, UA (test code = 6.0 5.0-8.0 5803-2) Protein, UA (test 30 mg/dL Negative A code = 47733-3) Glucose, UA (test Negative Negative code = 365) Ketones, UA (test Negative Negative code = 2514-8) Bilirubin, UA (test Negative Negative code = 80984-2) Blood, UA (test code Small Negative A = 03661-4) Nitrite, UA (test Negative Negative code = 5802-4) Leukocytes, UA (test Moderate Negative A code = 5799-2) Urobilinogen, UA 0.2 mg/dL 0.2-1.0 (test code = 70684-6) RBC, UA (test code = 18 See_Comment [Autom ated 63305-7) message] The system which generated this result [...] . Bacteria, UA (test Rare code = 48672-4) Mucus (test code = Moderate 8247-9) Squam Epithel, UA 2 See_Comment [Automate d (test code = 25356-8) messag e] The system which generated this result transmit barron reference range : /HPF. The reference range was not used to interpret this result as normal/abnormal . Hyaline Casts, UA 3 See_Comment [Automate d (test code = 28815-2) messag e] The system which generated this result transmit barron reference range : /LPF. The reference range was not used to interpret this result as normal/abnormal . Crystals, Urine (test None Seen code = 37303-7) Amorphous Crystals Rare (test code = 32876-3) Specimen Source (test code = 2795) REJI (test code = REJI) Manager Of Finance ID - [auto]Manager Of Finance ID - tech Lab Interpretation Abnormal (test code = 13582-1) [facility] + Reflex to Culture 2021-09-02 02:29:12 Test Item Value Reference Range Interpretation Comments Color, UA (test code Brown = 5778-6) Clarity, UA (test Hazy code = 5767-9) Specific [place], UA 1.029 1.001-1.035 (test code = 5811-5) pH, UA (test code = 6.0 5.0-8.0 5803-2) Protein, UA (test 30 mg/dL Negative A code = 79392-8) Glucose, UA (test Negative Negative code = 365) Ketones, UA (test Negative Negative code = 2514-8) Bilirubin, UA (test Negative Negative code = 01007-7) Blood, UA (test code Small Negative A = 06554-3) Nitrite, UA (test Negative Negative code = 5802-4) Leukocytes, UA (test Moderate Negative A code = 5799-2) Urobilinogen, UA 0.2 mg/dL 0.2-1.0 (test code = 92057-7) RBC, UA (test code = 18 See_Comment [Autom ated 60583-6) message] The system which generated this result [...] . Bacteria, UA (test Rare code = 52613-5) Mucus (test code = Moderate 8247-9) Squam Epithel, UA 2 See_Comment [Automate d (test code = 37483-7) messag e] The system which generated this result transmit barron reference range : /HPF. The reference range was not used to interpret this result as normal/abnormal . Hyaline Casts, UA 3 See_Comment [Automate d (test code = 02104-6) messag e] The system which generated this result transmit barron reference range : /LPF. The reference range was not used to interpret this result as normal/abnormal . Crystals, Urine (test None Seen code = 32303-0) Amorphous Crystals Rare (test code = 21478-1) Specimen Source (test code = 2795) REJI (test code = REJI) Manager Of Finance ID - [auto]Manager Of Finance ID - tech Lab Interpretation Abnormal (test code = 12846-1) [facility] + Reflex to Culture 2021-09-02 02:29:12 Test Item Value Reference Range Interpretation Comments Color, UA (test code Brown = 5778-6) Clarity, UA (test Hazy code = 5767-9) Specific [place], UA 1.029 1.001-1.035 (test code = 5811-5) pH, UA (test code = 6.0 5.0-8.0 5803-2) Protein, UA (test 30 mg/dL Negative A code = 24731-3) Glucose, UA (test Negative Negative code = 365) Ketones, UA (test Negative Negative code = 2514-8) Bilirubin, UA (test Negative Negative code = 07849-4) Blood, UA (test code Small Negative A = 11865-5) Nitrite, UA (test Negative Negative code = 5802-4) Leukocytes, UA (test Moderate Negative A code = 5799-2) Urobilinogen, UA 0.2 mg/dL 0.2-1.0 (test code = 95835-8) RBC, UA (test code = 18 See_Comment [Autom ated 22581-3) message] The system which generated this result [...] . Bacteria, UA (test Rare code = 54555-3) Mucus (test code = Moderate 8247-9) Squam Epithel, UA 2 See_Comment [Automate d (test code = 42952-5) messag e] The system which generated this result transmit barron reference range : /HPF. The reference range was not used to interpret this result as normal/abnormal . Hyaline Casts, UA 3 See_Comment [Automate d (test code = 02944-9) messag e] The system which generated this result transmit barron reference range : /LPF. The reference range was not used to interpret this result as normal/abnormal . Crystals, Urine (test None Seen code = 11028-5) Amorphous Crystals Rare (test code = 60333-9) Specimen Source (test code = 2795) REJI (test code = REJI) Manager Of Finance ID - [auto]Manager Of Finance ID - tech Lab Interpretation Abnormal (test code = 70000-8) [facility] Reflex to Culture 2021-09-02 02:29:12 Test Item Value Reference Range Interpretation Comments Color, UA (test code Brown = 5778-6) Clarity, UA (test Hazy code = 5767-9) Specific [place], UA 1.029 1.001-1.035 (test code = 5811-5) pH, UA (test code = 6.0 5.0-8.0 5803-2) Protein, UA (test 30 mg/dL Negative A code = 98131-5) Glucose, UA (test Negative Negative code = 365) Ketones, UA (test Negative Negative code = 2514-8) Bilirubin, UA (test Negative Negative code = 42385-5) Blood, UA (test code Small Negative A = 54396-5) Nitrite, UA (test Negative Negative code = 5802-4) Leukocytes, UA (test Moderate Negative A code = 5799-2) Urobilinogen, UA 0.2 mg/dL 0.2-1.0 (test code = 69623-4) RBC, UA (test code = 18 See_Comment [Autom ated 68569-5) message] The system which generated this result [...] . Bacteria, UA (test Rare code = 33935-4) Mucus (test code = Moderate 8247-9) Squam Epithel, UA 2 See_Comment [Automate d (test code = 56242-0) messag e] The system which generated this result transmit barron reference range : /HPF. The reference range was not used to interpret this result as normal/abnormal . Hyaline Casts, UA 3 See_Comment [Automate d (test code = 24970-4) messag e] The system which generated this result transmit barron reference range : /LPF. The reference range was not used to interpret this result as normal/abnormal . Crystals, Urine (test None Seen code = 45099-9) Amorphous Crystals Rare (test code = 07412-2) Specimen Source (test code = 2795) REJI (test code = REJI) Manager Of Finance ID - [auto]Manager Of Finance ID - tech Lab Interpretation Abnormal (test code = 15941-1) [facility] URINE [id number] 02:29:12 Test Item Value Reference Range Interpretation [...] = 1584) SOURCE(BEAKER) (test code = 2795) Manager Of Finance ID - [auto]Manager Of Finance ID - techRAD, CHEST, 1 VIEW, NON [id number] 01:45:00Reason for exam:->leukocytosis, unable to provide historyShould this be performed at the bedside?->Yes [facility] 1960 Sex: [...] 09/02/2021 01:45:23 CBC W/PLT COUNT & AUTO [id number] 00:20:23 Test Item Value Reference Range Interpretation [...] CONCENTRATION Decreased (CELLAVISION)(BEAKER) (test code = 3438) Manager Of Finance ID - Curtis Grullon comments: Slide comments:PT/[id number] 23:44:49 Test Item Value Reference Interpretation Comments [...] PTT (test code = 35.2 See_Comment [Automated 79127-5) message] The system which generated this result [...] valves. Lab Interpretation Abnormal (test code = 77917-7) [facility]PT/[id number] 23:44:49 Test Item Value Reference Interpretation Comments [...] PTT (test code = 35.2 See_Comment [Automated 15789-0) message] The system which generated this result [...] valves. Lab Interpretation Abnormal (test code = 13692-2) [facility]PT/[id number] 23:44:49 Test Item Value Reference Interpretation Comments [...] PTT (test code = 35.2 See_Comment [Automated 05901-7) message] The system which generated this result [...] valves. Lab Interpretation Abnormal (test code = 41503-0) [facility]PT/[id number] 23:44:49 Test Item Value Reference Interpretation Comments [...] PTT (test code = 35.2 See_Comment [Automated 97904-0) message] The system which generated this result [...] valves. Lab Interpretation Abnormal (test code = 40948-3) [facility]PT/[id number] 23:44:49 Test Item Value Reference Range Interpretation [...] for patients with mechanical heart valves.BASIC METABOLIC [id number] 23:31:12 Test Item Value Reference Range Interpretation [...] S NOT APPLICABLE FOR DIALYSIS PATIEN TS. Manager Of Finance ID - DBSpecimen slightly nvypmsiNBNGXYPNZ1175-08-09 23:19:46 Test Item Value Reference Range Interpretation Comments MAGNESIUM (BEAKER) (test code = 1.8 mg/dL 1.6-2.6 627) Manager Of Finance ID - [id number] 23:19:46 Test Item Value Reference Range Interpretation Comments PHOSPHORUS (BEAKER) (test code = 1.9 mg/dL 2.3-4.7 L 604) Manager Of Finance ID - DBHEPATIC FUNCTION [id number] 23:19:46 Test Item Value Reference Range Interpretation [...] (test code = 14 U/L 6-55 347) Manager Of Finance ID - DBSpecimen slightly ictericLactic acid, lvslvo9265-97-50 23:13:03 Test Item Value Reference Range Interpretation Comments Lactate, Venous (test 2.88 mmol/L 0.50-2.20 H code = 2872) REJI (test code = REJI) Manager Of Finance ID - DBSpecimen slightly icteric Lab Interpretation (test Abnormal code = 50367-2) [facility], [id number] 23:13:03 Test Item Value Reference Range Interpretation Comments Lactate, Venous (test 2.88 mmol/L 0.50-2.20 H code = 2872) REJI (test code = REJI) Manager Of Finance ID - DBSpecimen slightly icteric Lab Interpretation (test Abnormal code = 75748-9) [facility], [id number] 23:13:03 Test Item Value Reference Range Interpretation Comments Lactate, Venous (test 2.88 mmol/L 0.50-2.20 H code = 2872) REJI (test code = REJI) Manager Of Finance ID - DBSpecimen slightly icteric Lab Interpretation (test Abnormal code = 04928-0) [facility], [id number] 23:13:03 Test Item Value Reference Range Interpretation Comments Lactate, Venous (test 2.88 mmol/L 0.50-2.20 H code = 2872) REJI (test code = REJI) Manager Of Finance ID - DBSpecimen slightly icteric Lab Interpretation (test Abnormal code = 87804-6) [facility]LACTIC ACID, [id number] 23:13:03 Test Item Value Reference Range Interpretation Comments LACTATE BLOOD VENOUS (2) (BEAKER) 2.88 mmol/L 0.50-2.20 H (test code = 2872) Manager Of Finance ID - DBSpecimen slightly ictericPOC-Glucose kvkth7776-40-95 22:47:30 Test Item Value Reference Range Interpretation Comments POC-Glucose Meter (test 106 mg/dL 70-110 : TE STED AT [facility] code = 1538) [address] [place] [address], [facility] 30: Manager Of Finance/Techni sowmya ID = [id number] for ULLATTIL, TAYA K Lab Interpretation (test Normal code = 09626-2) [facility]-Glucose [id number] 22:47:30 Test Item Value Reference Range Interpretation Comments POC-Glucose Meter (test 106 mg/dL 70-110 : TE STED AT [facility] code = 1538) [address] [place] [address], [facility] 30: Manager Of Finance/Techni sowmya ID = [id number] for ULLATTIL, TAYA K Lab Interpretation (test Normal code = 66366-1) [facility]PO[facility]Glucose [id number] 22:47:30 Test Item Value Reference Range Interpretation Comments POC-Glucose Meter (test 106 mg/dL 70-110 : TE STED AT [facility] code = 1538) [address] [place] [address], [facility] 30: Manager Of Finance/Techni sowmya ID = [id number] for ULLATTIL, TAYA K Lab Interpretation (test Normal code = 63993-8) [facility]PO[facility]Glucose [id number] 22:47:30 Test Item Value Reference Range Interpretation Comments POC-Glucose Meter (test 106 mg/dL 70-110 : TE STED AT [facility] code = 1538) [address] [place] [address], [facility] 30: Manager Of Finance/Techni sowmya ID = [id number] for TAYA TO Lab Interpretation (test Normal code = 37429-9) [facility]POCT-GLUCOSE [id number] 22:47:30 Test Item Value Reference Range Interpretation Comments POC-GLUCOSE METER 106 mg/dL 70-110 : TESTED A T [facility] 6720 (BEAKER) (test code = SHAUN YIP SC, 1538) [address]: Manager Of Finance/Techni sowmya ID = [id number] for WALE FITZPATRICK C1Q class 1 & 2 [id number] 17:38:21 Test Item Value Reference Range Interpretation Comments Interpretation (test code ADDITIONAL ANTIBODY = 0149886) INFORMATION:DQ7 = DQB1*03:01; DQA1*05:03DQ7 = DQB1*03:19; DQA1*05:05DQ7 = DQB1*03:01; DQA1*06:01DQ9 = DQB1*03:03; DQA1*02:01DQ9 = DQB1*03:03; DQA1*03:02DQ8 = DQB1*03:02; DQA1*03:01DQ8 = DQB1*03:02; DQA1*03:02 Case number (test code = [id number]) C1Q class 1 & 2 antibody See link below for (test code = 1531520) PDF [facility], lung volumes, [facility]/[id number] 19:27:26 Test Item Value Reference Range Interpretation [...] Predicted (test code = 67.9 % 5368) [facility] flnuseg1197-41-70 13:53:30 Test Item Value Reference Range Interpretation Comments POC glucose (test code = 124 mg/dL 65-99 H Ope rator Name: [id number]) Clint Bustamante RDevice ID: [id number] able : [facility] Notified manufacturing systems engineer Interpretation (test Abnormal code = 26743-6) [facility] antigen [id number] 11:33:46 Test Item Value Reference Range Interpretation Comments SAB interpretation (test Additional Antibody code = 5950) Information:DQ2=DQB1 *02:01/DQA1*04:01, DQB1*02:01/DQA1*05:0 7MB3=LTT7*04:02/DQA1 *04:11MZ7=TZX4*03:01 /DPA1*01:03, DPB1*03:01/DPA1*02:0 3JW1=QUW3*04:02/DPA1 *01:14RW78=USY5*28:0 1/DPA1*01:03 SAB serum ID (test code = [id number] 5866) [facility] serum collection D&T 08/23/2021 05:49 AM (test code = 5867) SAB class I antibody A11,A74,A32,A3,A31,A assignment (test code = 30,A36,A1,A29,A66,A8 5870) 0,A26,A25,A43,A34,A3 3,B82 SAB cPRA class I (test code = 5868) SAB class II antibody DR18,DR17,DR13,DR14, assignment (test code = DR52,DR11,DR8,DQ7,DR 5871) 12,DQ9,DR9,DR7,DQ8,D Q2,DR4,DQ4,DP2,DP14, DP4,DP9,DP10,DP18,DP 20,DP17,DP3,DP28 SAB cPRA class II (test code = 5869) Case number (test code = [id number]) Single antigen beads See link below for (test code = 4604) PDF [facility], [facility] sbjxg1961 20:20:55 Test Item Value Reference Range Interpretation Comments Collection start date, urine (test 08/23/21 code = 62301-8) Collection start time, urine (test 8:40 code = 15738-8) Collection stop date, urine (test 08/24/21 code = 39547-5) Collection stop time, urine (test 8:40 code = 47052-2) Hours of collection (test code = 37887-8) Total volume, urine (test code = 800 mL 25047-9) Urine protein concentration (test 7 mg/dL code = 63849-0) Urine protein excretion (test code = mg/vol 2448) [facility] CenterCreatinine [facility], urine, [id number] 20:20:52 Test Item Value Reference Range Interpretation Comments Collection start date, urine (test 08/23/21 code = 70816-2) Collection start time, urine (test 8:40 code = 85424-1) Collection stop date, urine (test 08/24/21 code = 28035-3) Collection stop time, urine (test 8:40 code = 15268-2) Hours of collection (test code = 79805-5) Total volume, urine (test code = 800 mL 40800-1) Urine creatinine concentration 114 mg/dL (test code = 85400-4) Urine creatinine excretion (test mg/vol code = 10769-4) [facility] RNA [Presence] in Respiratory specimen by GUSTAVO with probe [id number] 20:48:05 Test Item Value Reference Range Interpretation Comments SARS-CoV-2 (COVID-19) RNA Not detected Not-Detected [Presence] in Respiratory specimen by GUSTAVO with probe detection (test code = 14177-9) 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 (test code = 91526-2) Whether the patient has symptoms related to condition of interest (test code = 73041-5) Patient was hospitalized because of this condition (test code = 54065-7) Whether the patient was admitted to intensive care unit (ICU) for condition of interest (test code = 34388-8) Whether patient resides in a congregate care setting (test code = 44263-4) [facility] 12 [id number] 15:33:38 Test Item Value Reference Range Interpretation [...] out Inferior infarct , age undetermined-Abnormal ECG- [facility] transplant nwbvhlpowu4086-79-84 14:27:40 Test Item Value Reference Range Interpretation Comments HLA transplant evaluation See link below for (test code = 10659-6) PDF Lab Report Case number (test code = [id number]) [facility] ED Preliminary Interpretation - Not an [id number] 02:54:33 Test Item Value Reference Range Interpretation Comments REJI (test code = REJI) Orlando Balderrama MD 08/17/2021 10:33 [facility] ED Preliminary Interpretation - Not an OrderPerformed by: Orlando Balderrama MDAuthorized by: Orlando Balderrama MD ECG reviewed by ED Physician in the absence of a dye boarding machine operator: yes Interpretation: Interpretation: abnormal Rate: ECG rate: 80 ECG rate assessment: normal Rhythm: Rhythm: sinus rhythm QRS: QRS axis: Normal QRS intervals: NormalST segments: ST segments: NormalOther findings: Other findings: prolonged qTc interval Lab Interpretation Abnormal (test code = 10391-5) [facility] OnealARS-CoV-2 (COVID-19) RNA [Presence] in Respiratory specimen by GUSTAVO with probe [id number] 23:59:30 Test Item Value Reference Range Interpretation Comments SARS-CoV-2 (COVID-19) RNA Not detected Not-Detected [Presence] in Respiratory specimen by GUSTAVO with probe detection (test code = 11294-6) 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 (test code = 31829-5) Whether the patient has symptoms related to condition of interest (test code = 40442-1) Patient was hospitalized because of this condition (test code = 14200-5) Whether the patient was admitted to intensive care unit (ICU) for condition of interest (test code = 80347-4) Whether patient resides in a congregate care setting (test code = 43310-3) status (test code = 97004-1) PHI MICHAELSARS-CoV-2 (COVID-19) RNA [Presence] in Respiratory specimen by GUSTAVO with probe [id number] 14:46:31 Test Item Value Reference Range Interpretation Comments SARS-CoV-2 (COVID-19) RNA Not detected Not-Detected [Presence] in Respiratory specimen by GUSTAVO with probe detection (test code = 89069-1) 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 (test code = 04249-9) Whether the patient has symptoms related to condition of interest (test code = 93086-7) Patient was hospitalized because of this condition (test code = 36058-5) Whether the patient was admitted to intensive care unit (ICU) for condition of interest (test code = 84902-4) Whether patient resides in a congregate care setting (test code = 80020-9) status (test code = 37142-9) PHI MICHAELSARS-CoV-2 (COVID-19) RNA [Presence] in Respiratory specimen by GUSTAVO with probe [id number] 19:52:10 Test Item Value Reference Range Interpretation Comments SARS-CoV-2 (COVID-19) RNA Not detected Not-Detected [Presence] in Respiratory specimen by GUSTAVO with probe detection (test code = 32345-6) 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 (test code = 30062-3) Whether the patient has symptoms related to condition of interest (test code = 24177-4) Patient was hospitalized because of this condition (test code = 66088-1) Whether the patient was admitted to intensive care unit (ICU) for condition of interest (test code = 18496-0) Whether patient resides in a congregate care setting (test code = 85350-9) status (test code = 42137-9) PHI MICHAELSARS-CoV-2 (COVID-19) RNA [Presence] in Respiratory specimen by GUSTAVO with probe [id number] 19:31:11 Test Item Value Reference Range Interpretation Comments SARS-CoV-2 (COVID-19) RNA Not detected Not-Detected [Presence] in Respiratory specimen by GUSTAVO with probe detection (test code = 08258-4) 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 (test code = 91326-2) Whether the patient has symptoms related to condition of interest (test code = 06011-0) Patient was hospitalized because of this condition (test code = 11117-5) Whether the patient was admitted to intensive care unit (ICU) for condition of interest (test code = 51020-7) Whether patient resides in a congregate care setting (test code = 10106-2) status (test code = 35603-0) PHI MICHAELSARS-CoV-2 (COVID-19) RNA [Presence] in Respiratory specimen by GUSTAVO with probe vzyylmksb4234-68-45 02:26:38 Test Item Value Reference Range Interpretation Comments SARS-CoV-2 (COVID-19) RNA Not detected Not-Detected [Presence] in Respiratory specimen by GUSTAVO with probe detection (test code = 11328-1) PHI CORLEY YEEANFDH-BcG-0 (COVID-19) RNA [Presence] in Respiratory specimen by GUSTAVO with probe [id number] 21:10:32 Test Item Value Reference Range Interpretation Comments SARS-CoV-2 (COVID-19) RNA Not detected Not-Detected [Presence] in Respiratory specimen by GUSTAVO with probe detection (test code = 85651-2) PHI MICHAELSARS-CoV-2 (COVID-19) RNA [Presence] in Respiratory specimen by GUSTAVO with probe ehyxzdsep3501-32-65 19:03:37 Test Item Value Reference Range Interpretation Comments SARS-CoV-2 (COVID-19) RNA Not detected Not-Detected [Presence] in Respiratory specimen by GUSTAVO with probe detection (test code = 91344-9) PHI ADVENTIST UCRAYYPZ-MoJ-1 (COVID-19) RNA [Presence] in Respiratory specimen by GUSTAVO with probe hyvnlwzgh5983-98-26 05:36:17 Test Item Value Reference Range Interpretation Comments SARS-CoV-2 (COVID-19) RNA Not detected Not-Detected [Presence] in Respiratory specimen by GUSTAVO with probe detection (test code = 87545-2) PHI CORLEY DUZEZXDK-EaP-3 (COVID-19) IgG+IgM Ab [Presence] in Serum or Plasma by Grjfdywexvv7772-88-80 09:52:00 Test Item Value Reference Range Interpretation Comments SARS-CoV-2 (COVID-19) IgG+IgM Ab Not detected [Presence] in Serum or Plasma by Immunoassay (test code = 29767-7) PHI MICHAELSARS-CoV-2 (COVID-19) RNA [Presence] in Respiratory specimen by GUSTAVO with probe cltmduwqf4956-56-73 04:46:40 Test Item Value Reference Range Interpretation Comments SARS-CoV-2 (COVID-19) RNA [Presence] Detected Not-Detected in Respiratory specimen by GUSTAVO with probe detection (test code = 47208-6) PHI ADVENTIST UCBHHAIL-TbS-4 (COVID-19) RNA [Presence] in Respiratory specimen by GUSTAVO with probe gczpdwrej2501-40-57 00:55:48 Test Item Value Reference Range Interpretation Comments SARS-CoV-2 (COVID-19) RNA Not detected Not-Detected [Presence] in Respiratory specimen by GUSTAVO with probe detection (test code = 60117-0) YIP ADVENTIST XIFWACKP-NeD-7 (COVID-19) RNA [Presence] in Respiratory specimen by GUSTAVO with probe vaqpdfeol7724-30-61 08:17:26 Test Item Value Reference Range Interpretation Comments SARS-CoV-2 (COVID-19) RNA Not detected Not-Detected [Presence] in Respiratory specimen by GUSTAVO with probe detection (test code = 04341-7) PHI CORLEY QRWMDLCO-GxW-9 (COVID-19) RNA [Presence] in Respiratory specimen by GUSTAVO with probe wdnrsanwr3869-24-40 00:04:18 Test Item Value Reference Range Interpretation Comments SARS-CoV-2 (COVID-19) RNA Not detected Not-Detected [Presence] in Respiratory specimen by GUSTAVO with probe detection (test code = 58921-9) PHI MICHAELSARS-CoV-2 (COVID-19) RNA [Presence] in Respiratory specimen by GUSTAVO with probe slaguzxlb9023-06-85 04:41:17 Test Item Value Reference Range Interpretation Comments SARS-CoV-2 (COVID-19) RNA Not detected Not-Detected [Presence] in Respiratory specimen by GUSTAVO with probe detection (test code = 81753-5) PHI SUTTON-CoV-2 (COVID-19) RNA [Presence] in Respiratory specimen by GUSTAVO with probe gpybkmcjx9509-39-33 04:13:39 Test Item Value Reference Range Interpretation Comments SARS-CoV-2 (COVID-19) RNA Not detected Not-Detected [Presence] in Respiratory specimen by GUSTAVO with probe detection (test code = 79533-9) PHI MICHAEL
--- NOTE | 2022-07-09 16:05 | ER ---
Nurse's Notes [facility] Name: Bella Barron Age: 62 yrs Sex: Female : 1960 Arrival Date: 07/09/2022 Time: 14:02 Bed External Waiting Private MD: Diagnosis: Assessment: 07/09 15:37 Reassessment: called from [facility]. Unable to locate patient. ED Course: 14:02 Patient arrived in ED. rg4 14:53 Ela Tejada FNP-C [facility] snw 14:53 Azam Farrell DO is Attending Physician. snw Administered Medications: No medications were administered Outcome: 16:05 Patient left the ED. Signatures: Ela Tejada FNP-C FNP-CsnNatalie Mckenna, RN RN [facility] rg4
== END 2022-07-09 16:05 | disposition left against medical advice (07) ==
LOC: ER 13:58
DX: Z02.9 Encounter for administrative examinations, unspecified (principal)

== ENCOUNTER 2022-12-24 13:42 | Emergency (ER) | payer OTHER ==
--- OUTSIDE RECORDS SUMMARY | 2022-12-24 14:03 | XMS REPORT | Continuity of Care Document ---
:1960 Author Organization [facility] [place] t Address [address] [facility] [address] [place] [address] Care Team Providers Name Role Phone Calos Garcia MD Primary Care Physician Fernando Man Attending Clinician Unavailable PEDRO BRIDGES Attending Clinician Unavailable RAY LACY Attending Clinician Unavailable CALOS GARCIA Attending Clinician Unavailable DO ROMERO LIMON Attending Clinician Unavailable DAKSHA ARECHIGA Attending Clinician Unavailable COLIN MERRITT Attending Clinician Unavailable MARTELL BRADFORD Attending Clinician Unavailable Martell Bradford MD Attending Clinician DAVE DEL CID Attending Clinician Unavailable DARA VERMA Attending Clinician Unavailable DARIN JAMES Attending Clinician Unavailable BAYLEE GIRARD Attending Clinician Unavailable HERIBERTO YORK Attending Clinician Unavailable MD FABIAN AZEVEDO Attending Clinician Unavailable MD JENNIFER GHOSH Attending Clinician Unavailable MD EBONY AVILEZ Attending Clinician Unavailable MD PIERCE MARSHALL Attending Clinician Unavailable MD AYDE WESTFALL Attending Clinician Unavailable SALLY AGUDELO Attending Clinician Unavailable Doctor Unassigned, [place] Attending Clinician Unavailable Mercy Tamez MD Attending Clinician Libby Levy PA-C Attending Clinician LIBBY LEVY Attending Clinician Unavailable Rafael FRANKLIN, Kendy Dalal Attending Clinician [phone] Silvio FRANKLIN, Dawna Attending Clinician Isabella FRANKLIN, Zara Stevenson Attending Clinician [phone] Vj FRANKLIN, Shiela Man Attending Clinician Aly FRANKLIN, Selma Bernard Attending Clinician Kyle FRANKLIN, Nia Delaney Attending [...] Unavailable DO ROMERO LIMON Attending Clinician Unavailable John Murillo, Kaleb Turner Attending Clinician Unavailable Eusebia Williamson MA Attending Clinician Unavailable MD BAYLEE GIRARD Attending Clinician Unavail able Bia Tee RN Attending Clinician Unavailable Wild Kovacs DO Attending Clinician [phone] Mildred FRANKLIN, Cliff Marion Attending Clinician MD CALOS GARCIA Attending Clinician Unavailable Freedom Gutierrez DO Attending Clinician Chris FRANKLIN, Robby Rios Attending Clinician [phone] MD HERIBERTO YORK Attending Clinician Unavailable [...] Clinician Unavailable YOVANY TAVERAS Attending Clinician Unavailable Anil OLMOS, Anabell Attending Clinician Akanksha Jensen MD Attending Clinician Indra Motta MD Attending Clinician Lizy Taylor MD Attending Clinician DO ROMERO LIMON Admitting Clinician Unavailable DARA VERMA Admitting Clinician Unavailable PEDRO BRIDGES Admitting Clinician Unavailable HERIBERTO YORK Admitting Clinician [...] Expiration Date Faustino vasquez MEDICARE A B [id number] 2015 00:00:00 GENERIC MEDICAID [id number] 2021 HMO 00:00:00 WELLMED/UHC DUAL [id number] 2022 COMP HMO D SNP 00:00:00 LEACH [id number] 2022 HEALTHCARE STAR 00:00:00 PLUS MEDICARE PART A [id number] 2015 \\T\\ B 00:00:00 MEDICAID OF [id number] 2018 [place] 00:00:00 [facility] [id number] Common [facility] MEDICARE NOVITAS MB [id number] 2015 Common 00:00:00 [facility] [id number] Common [facility] MEDICARE NOVITAS MB [id number] 2015 Common 00:00:00 [facility] MEDICARE NOVITAS MB [id number] 2015 Common 00:00:00 [facility] [id number] [facility] MEDICARE NOVITAS [id number] 2015 Common 00:00:00 [facility] [id number] Common [facility] [id number] Common [facility] MEDICARE NOVITAS [id number] 2015 Common 00:00:00 [facility] [id number] Common [facility] MEDICARE NOVITAS MB [id number] 2015 Common 00:00:00 [facility] MEDICARE NOVITAS MB [id number] 2015 Common 00:00:00 [facility] [id number] Common [facility] MEDICARE NOVITAS MB [id number] 2015 Common 00:00:00 [facility] [id number] Common [facility] MEDICARE NOVITAS [id number] 2015 Common 00:00:00 [facility] [id number] Common [facility] Problems Condition Condition Condition Status Onset Resolution Last Treating Co mments Source Name Details Category Date Date Treatment Clinician Date Altered Altered Disease Active [facility] 09[facility]02 [facility] status status 00:00: Medical 00 Center SBP [...] Added automatic ally from request for surgery [id number] Chronic Chronic Disease Active 2020-08 Methodi kidney [...] nivers ia ia 03-06 ity of 00:00: [place] [address] Medical Branch Abdominal Abdominal Disease Active Met [...] l CAM (acute CAM (acute Disease Active 0 M ethodi kidney kidney 08-20 injury) injury) [...] Added automatic ally from request for surgery [id number] Persistent Persistent Disease Active M ethodi depressive depressive 10-09 st disorder disorder 00:00: Hospit a 00 l 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 2- it y of y athy 00:00: [place] 00 Medical Branch Hepatic Hepatic Disease Active 2015-08 Methodi encephalop encephalop 1 st 00:00: Hospita 00 l Thrombocyt Thrombocyt Disease Active M ethodi openia openia 05-04 00:00: Hospita 00 l Malnutriti Malnutriti Disease Active M ethodi on on 05-04 00:00: Hospita 00 l Right Right Disease Active Univers shoulder shoulder 4- ity of pain pain 00:00: [place] [facility] Branch Anxiety Anxiety Disease Active Univers and and 12-01 [place] [facility] [place] Rectal Rectal Disease Active 2014-08 Univers bleed bleed 09-14 ity of 00:00: [place] 00 [facility] Branch Cirrhosis Cirrhosis Disease Recurre [facility] Crohn Crohn Disease Recurre [facility] disease disease [facility] [id number] Secondary Problem Comm on esophageal Spirit varices - [facility] without [facility] [id number] Portal Problem Common hypertensi Spirit on - [facility] [id number] 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 Spirit lar - [facility] intrahepat 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 Spir it of liver - [facility] without [facility] Fatigue Fatigue Problem Common Spirit [facility] Chronic Chronic Problem Common pain pain Spirit - [facility] Anxiety Anxiety Problem Common Spirit [facility] Depression Depression Problem C ommon [facility] Kidney Kidney Problem Common [place] [facility] Thrombocyt Thrombocyt Problem C ommon openia openia [facility] Bipolar Bipolar Problem Common disorder disorder [facility] - [facility] Restless Restless Problem Commo n legs legs Spirit syndrome syndrome - [facility] [id number] Inflammato Problem Com mon ry bowel Spirit disease - [facility] [id number] Incontinen Problem Com mon ce of Spirit feces, - [facility] unspecifie St d fecal [facility] incontinen Medica l ce type Center Body mass BMI Problem Common index 40+ 40.0-44.9, Spi rit - morbidly adult - [facility] obese [facility] Allergic Seasonal Problem Commo n rhinitis and Spirit perennial - [facility] allergic rhinitis [facility] Irritable Irritable Problem Com mon bowel bowel Spirit syndrome syndrome - [facility] without diarrhea [facility] [id number] Adult BMI Problem Com mon 35.0-35.9 Spirit kg/sq m - [facility] [id number] Insomnia, Problem Com mon unspecifie Spirit d type - [facility] Migraine Migraine Problem Commo n Spirit [facility] Gout Gout Problem Common [facility] Allergies, Adverse Reactions, Alerts Allergy Allergy Status Severity Reaction(s) Onset Inactive Treating Comm ents Source Name Type Date Date Clinician Fish Drug Active [facility] 00:00: Medical Products 00 Adell Shellfis Drug Active [facility] Allergy 2- [facility] Containi 00:00: Medical ng 00 Adell Products FISH Allergy Active [facility] CONTAINI 2- [facility] NG 00:00: Medical PRODUCTS 00 Adell SHELLFIS Allergy Active [facility] H 2- [facility] CONTAINI 00:00: Medical NG Adell PRODUCTS Fish Drug Active [facility] Containi Allergy 2- [facility] ng 00:00: Medical Products 00 Adell Shellfis Drug Active [facility] Allergy 2- [facility] Containi 00:00: Medical ng 00 Adell Products Eggshell Drug Active [facility] Membrane Allergy - [facility] 00:00: Medical 00 Adell EGGSHELL Allergy Active [facility] MEMBRANE - [facility] 00:00: Medical 00 Adell Ceftriax Propensi Active [facility] one ty to 09-02 [facility] adverse 00:00: Medical reaction 00 Adell s Iodine Propensi Active [facility] ty to 1 [facility] adverse 00:00: Medical reaction 00 Center s Prometha Propensi Active [facility] zine ty to 09-02 [facility] adverse 00:00: Medical reaction 00 Center s CEFTRIAX Allergy Active [facility] ONE - [facility] 00:00: Medical 00 Center IODINE Allergy Active [facility] 00:[facility] Medical 00 Center PROMETHA Allergy Active [facility] ZINE 09-02 [facility] 00:00: Medical 00 Center Ciproflo Propensi Active Hives 2020-08 Method i xacin ty to 0-13 st adverse 00:00: Hospita reaction 00 l s to drug Ceftriax Propensi Active Itching 2017-0 Unive rs one ty to 2- ity of adverse 00:00: [place] reaction 00 Medical Branch CEFTRIAX DRUG Active ITCHING 2018-0 Univers ONE INGREDI 2- ity of 00:00: [place] 00 [facility] Ceftriax Propensi Active Itching 2018-0 Metho di one ty to 10-06 st adverse 00:00: Hospita reaction 00 l s to drug Prometha Propensi Active Other - See 2017-0 Severe U nivers zine ty to comments 3- confusion ity o f adverse 00:00: [place] reaction 00 [facility] PROMETHA DRUG Active Other-Cmnt 2017-0 Univ ers ZINE INGREDI 3-27 ity of 00:00: [place] 00 [facility] Eggshell Propensi Active Diarrhea 2017-0 Egg yoke Un linda Membrane ty to 2-27 ity of adverse 00:00: [place] reaction 00 Medical Branch EGGSHELL DRUG Active Diarrhea 2017-0 Univer s MEMBRANE INGREDI 2-27 ity of 00:00: [place] 00 Medical Branch Eggshell Propensi Active Diarrhea 2017-0 Egg yoke Me thodi Membrane ty to 2- st adverse 00:00: Hospita reaction 00 l s to drug Prometha Propensi Active Other (See 2017-0 Severe Me thodi zine ty to Comments) 1-[address] adverse 00:00: Hospita reaction 00 l s to drug Shellfis Propensi Active Anaphylaxis 2016-0 U nivers h ty to 9-24 ity of Derived adverse 00:00: [place] reaction 00 Medical s Branch SHELLFIS DRUG Active High Anaphylaxis Uni vers H INGREDI 05-05 ity of DERIVED 00:00: [place] 00 Medical Branch Shellfis Propensi Active Anaphylaxis 2015- M ethodi h ty to 05-05 st Derived adverse 00:00: Hospita reaction 00 l s to drug Iodine Propensi Active Anaphylaxis SOB, Met hodi [...] ity of 00:00: [place] 00 Medical Branch 463 Drug Active Unknown Common allergy [facility] prometha prometha Active Unknown Commo n zine ne [facility] NO KNOWN Allergy Active [facility] ALLERGIE S Family History Family Member Diagnosis Comments Start Date Stop Date Source Natural father No Known Problems Met [facility] Natural mother No Known Problems Met [facility] Social History Social Habit Start Date Stop Date Quantity Comments Source History SDOH [facility] Alcohol Std Drinks [facility] History SDOH [facility] Alcohol Binge Medical [address] ter Exposure to Not sure University of SARS-CoV-2 (event) [facility] [place] History of Tobacco Common Spirit - Use [facility] Alcohol intake 2021-09-02 2021-09-[address] Alejo es 00:00:00 00:00:00 non-drinker Medical [facility] (finding) History SDOH 2021-09-02 2021-09-[address] [facility] Alcohol Frequency 00:00:00 00:00:00 [facility] Tobacco use and 2019-01-30 2019-01-30 Smokeless tobacco Un iversity of exposure 00:00:00 00:00:00 non-user [facility] [place] Cigarettes smoked 2016-11-22 2016-11-[address] current (pack per 00:00:00 00:00:00 Hospita l day) - Reported Cigarette 2016-11-22 2016-11-22 [facility] pack-years 00:00:00 00:00:00 Hospital Tobacco Comment 2016-09-12 2016-09-12 smokes 5 [facility] 00:00:00 00:00:00 cigarettes per Hospital day Alcohol Comment 2016-05-02 2016-05-02 Former social Method ist 00:00:00 00:00:00 alcohol use, quit Hospita l several years ago; denies history of heavy alcohol use Sex Assigned At [address] [facility] kes 00:00:00 00:[facility]:00 [facility] Center Smoking Status Start Date Stop Date Source Former Smoker 2021-10-13 00:00:00 2021-10-13 00:00:00 Common S pirit - [facility] nter Never smoked tobacco [facility] Medications Ordered Filled Start Stop Current Ordering Indication Dosage Frequency Signature Comments Components Source Medication Medication Date Date Medication? Clinician (SIG) Name Name ketorolac No 30mg 30 mg, Unive rs (TORADOL) 11-07 Intramuscu ity of injection 19:15: 18:35 lar, ONCE, [place] 30 mg 00 :00 1 dose, On Medical Wed Branch 11/07/22 at 1415, Routine estradioL Yes [id number] Apply 1g Univers (ESTRACE) 2- vaginally ity o f 0.01 % (0.1 00:00: at bedtime [place] mg/gram) 00 every Medical vaginal night for Branch cream 2 weeks and then apply 1g vaginally at bedtime 3 times per week (/ ida) nystatin Yes [id number] Apply to Un linda (NYSTOP) 2-21 area(s) 3 ity of 100,000 00:00: (three) [place] unit/gram 00 times Medical powder daily. Branch estradioL Yes [id number] Apply 1g Univers (ESTRACE) 2-21 vaginally ity o f 0.01 % (0.1 00:00: at bedtime [place] mg/gram) 00 every Medical vaginal night for Branch cream 2 weeks and then apply 1g vaginally at bedtime 3 times per week ( dn/ ida) nystatin Yes [id number] Apply to Un linda (NYSTOP) 2-21 area(s) 3 ity of 100,000 00:00: (three) [place] unit/gram 00 times Medical powder daily. Branch estradioL 2021-0 Yes [id number] Apply 1g Univers (ESTRACE) 2-21 vaginally ity o f 0.01 % (0.1 00:00: at bedtime [place] mg/gram) 00 every Medical vaginal night for Branch cream 2 weeks and then apply 1g vaginally at bedtime 3 times per week (/ ida) nystatin 2021-0 Yes [id number] Apply to Un linda (NYSTOP) 2-21 area(s) 3 ity of 100,000 00:00: (three) [place] unit/gram 00 times Medical powder daily. Branch estradioL 2021-0 Yes [id number] Apply 1g Univers (ESTRACE) 2-21 vaginally ity o f 0.01 % (0.1 00:00: at bedtime [place] mg/gram) 00 every Medical vaginal night for Branch cream 2 weeks and then apply 1g vaginally at bedtime 3 times per week (/ ida) nystatin 2021-0 Yes [id number] Apply to Un linda (NYSTOP) 2-21 area(s) 3 ity of 100,000 00:00: (three) [place] unit/gram 00 times Medical powder daily. [place] methylnaltr 0 Yes Take by Uni vers exone 2-16 mouth. ity of bromide 14:28: [place] (RELISTOR 49 Medical ORAL) [place] potassium 0 Yes Take by Unive rs (POTASSIMIN 2-16 mouth once it y of ORAL) 14:28: now. [address] spironolact 2021-0 Yes 100mg Take 100 U nivers one 100 mg 2-16 mg by ity of tablet 14:28: mouth. [address] methylnaltr 0 Yes Take by Uni vers exone 2-16 mouth. ity of bromide 14:28: [place] (RELISTOR 49 Medical ORAL) [place] potassium 2021-0 Yes Take by Unive rs (POTASSIMIN 2-16 mouth once it y of ORAL) 14:28: now. [address] spironolact 2021-0 Yes 100mg Take 100 U nivers one 100 mg 2-16 mg by ity of tablet 14:28: mouth. [address] methylnaltr 0 Yes Take by Uni vers exone 2-16 mouth. ity of bromide 14:28: [place] (RELISTOR 49 Medical ORAL) Branch potassium 0 Yes Take by Unive rs (POTASSIMIN 2-16 mouth once it y of ORAL) 14:28: now. [address] spironolact 0 Yes 100mg Take 100 U nivers one 100 mg 2-16 mg by ity of tablet 14:28: mouth. [address] methylnaltr 0 Yes Take by Uni vers exone 2-16 mouth. ity of bromide 14:28: [place] (RELISTOR 49 Medical ORAL) Branch potassium 0 Yes Take by Unive rs (POTASSIMIN 2-16 mouth once it y of ORAL) 14:28: now. [address] spironolact 0 Yes 100mg Take 100 U nivers one 100 mg 2-16 mg by ity of tablet 14:28: mouth. [address] lactulose 2021-0 Yes 20g [id number] Take [address] (Kristalose 2-07 [id number] packet (20 [facility]ukes ) 20 gram 00:00: 3D g total) Medi cj packet 00 by mouth 3 Center (three) times daily START ONCE STOOLS ARE FORMED.. lactulose 2021-0 Yes 20g Q.[id number] Take [address] (Kristalose 2-07 [id number] packet (20 [facility]ukes ) 20 gram 00:00: 3D g total) Medi cj packet 00 by mouth 3 Center (three) times daily START ONCE STOOLS ARE FORMED.. lactulose 2021-0 Yes 20g Q.[id number] Take [address] (Kristalose 2-07 [id number] packet (20 [facility] ) 20 gram 00:00: 3D g total) Medi cj packet 00 by mouth 3 Center (three) times daily START ONCE STOOLS ARE FORMED.. lactulose 2021-0 Yes 20g Q.[id number] Take [address] (Kristalose 2-07 [id number] packet (20 [facility]ukes ) 20 gram 00:00: 3D g total) Medi cj packet 00 by mouth 3 Center (three) times daily START ONCE STOOLS ARE FORMED.. lactulose Yes 20g Q.[id number] Take [address] (Kristalose 2-07 [id number] packet (20 [facility]ukes ) 20 gram 00:00: [...] mouth Medical tablet 56 nightly. Center ubrogepant 202-0 Yes 100mg Take [address] [...] Medical 56 night as Center needed. gabapentin 2021-0 Yes 1{capsu Q.5D Take [address] (NEURONTIN) 2-05 le} capsule by Susanna kes 300 MG 12:13: mouth 2 Medical capsule 56 (two) Center times daily. pantoprazol 0 Yes 1{tbl} QD Take [address] e 2-05 tablet by Gurpreet (PROTONIX) 12:13: mouth Medica l 40 MG 56 daily. Center tablet QUEtiapine 2021-0 Yes 1{tbl} QD Take [address] (SEROqueL) 2-05 tablet by Luke s 50 MG 12:13: mouth Medical tablet 56 nightly. Center rifAXIMin 2021-0 Yes 1{tbl} Q.5D Take [address] (Xifaxan) 2-05 tablet by [facility] 550 mg Tab 12:13: mouth 2 Medi cj 56 (two) Center times daily. spironolact 2021-0 Yes 25mg QD Take 25 mg CHI [...] 12 (twelve) hours for 3 days. fidaxomicin 2-0 2021- No 200mg Take [address] 200 mg Tab 2-05 02-08 tablet [facility]ukes 00:00: 23:59 (200 mg Medical 00 :00 total) by Center mouth every 12 (twelve) hours for 3 days. fidaxomicin 2-0 2- No 200mg Take [address] 200 mg Tab 2-05 02-08 tablet [facility]ukes 00:00: 23:59 (200 mg Medical 00 :00 total) by Center mouth every 12 (twelve) hours for 3 days. lactulose 2021-0 2- No 1{packe Q.[id number] Take [address] (Kristalose 2-04 02-04 t} [id number] packet by [facility] ) 20 gram 15:50: 00:00 3D mouth 3 Medi cj packet 31 :00 (three) Center times daily. lactulose 2021-0 2021- No 1{packe Q.[id number] Take [address] (Kristalose 2-04 02-04 t} [id number] packet by [facility] ) 20 gram 15:50: 00:00 3D mouth 3 Medi cj packet 31 :00 (three) Center times daily. lactulose 2021-0 2021- No 1{packe Q.[id number] Take [address] (Kristalose 2-04 02-04 t} [id number] packet by [facility] ) 20 gram 15:50: [...] es latum 00:00: BID. Medical (CRITIC-AID 00 Adell ) 20-51 % Pste topical paste zinc 2021-[address] oxide-luana 2-04 TOPICALLY Alejo es latum 00:00: BID. Medical (CRITIC-AID 00 Center ) 20-51 % Pste topical paste zinc Yes APPLY [facility] oxide-luana 2-04 TOPICALLY [...] St ine 2-04 02-04 t} packet by AlaMarka ([employer]) 00:00: 23:59 mouth 2 Med ical 4 gram PwPk 00 :00 (two) Center packet times daily. nystatin 2022- No Q.5D Apply [facility] (MYCOSTATIN 2-04 02-04 topically Susanna kes ) 100,000 00:00: 23:59 2 (two) Medi cj unit/gram 00 :00 times Center powder daily. cholestyram 2022- No 1{packe Q.5D Take [address] ine 2-04 02-04 t} packet by [employer] ([employer]) 00:00: 23:59 mouth 2 Med ical 4 gram PwPk 00 :00 (two) Center packet times daily. nystatin 2022- No Q.5D Apply [facility] (MYCOSTATIN 2-04 02-04 topically Susanna kes ) 100,000 00:00: 23:59 2 (two) Medi cj unit/gram 00 :00 times Center powder daily. cholestyram 2022- No 1{packe Q.5D Take [address] ine 2-04 02-04 t} packet by [employer] ([employer]) 00:00: 23:59 mouth 2 Med ical 4 [...] 2022- No Q.5D Apply [facility] (MYCOSTATIN 2- 02-04 topically Susanna kes ) 100,000 00:00: [...] needed for up to 360 days. acetaminoph 2022- No 650mg Take [address] en 2- 01-30 tablets Lukes (TYLENOL) 00:00: 23:59 (650 mg Medi cj 325 MG 00 :00 total) by Center tablet mouth every 8 (eight) hours as needed for up to 360 days. acetaminoph 2022- No 650mg Take [address] en 2-04 01-30 tablets [facility]ukes (TYLENOL) 00:00: 23:59 (650 mg Medi cj 325 MG 00 :00 total) by Center tablet mouth every 8 (eight) hours as needed for up to 360 days. acetaminoph 2022- No 650mg Take [address] en 2-04 -30 tablets [facility]ukes (TYLENOL) 00:00: 23:59 (650 mg Medi cj 325 MG 00 :00 total) by Center tablet mouth every 8 (eight) hours as needed for up to 360 days. acetaminoph 2022- No 650mg Take [address] en 2-04 -30 tablets [facility]ukes (TYLENOL) 00:00: 23:59 (650 mg [...] Q24H Place [address] (LIDODERM) 09-15- } patch onto Susanna kes 5 % patch 00:00: 23:59 the skin Med ical 00 :00 daily for Center 30 days Remove & Discard patch within 12 hours or as directed by MD. fidaxomicin 2021-0 2021- No 200mg Take [address] 200 mg Tab 09-15-05 tablet [facility]ukes 00:00: 00:00 (200 mg Medical 00 :00 total) by Center mouth every 12 (twelve) hours for 7 days. fidaxomicin 2021-0 2021- No 200mg Take [address] 200 mg Tab 2-11 11-05 tablet [facility]ukes 00:00: 00:00 (200 mg Medical 00 :00 total) by Center mouth every 12 (twelve) hours for 7 days. fidaxomicin 2021-0 2021- No 200mg Take [address] 200 mg Tab 2-11 11-05 tablet [facility]ukes 00:00: 00:00 (200 mg Medical 00 :00 total) by Center mouth every 12 (twelve) hours for 7 days. cholestyram 2021-2021- No 1{packe Q.5D Take [address] ine 2- 02-04 t} packet by Gurpreet (QUESTRAN) 00:00: 00:00 mouth 2 Med ical 4 gram PwPk 00 :00 (two) Center packet times daily. fidaxomicin 2022-0 2022- No 200mg Take [address] 200 mg Tab 2-04 02-04 tablet [facility]ukes 00:00: 00:00 (200 mg Medical 00 :00 total) by Center mouth every 12 (twelve) hours for 7 days. lidocaine 2-0 2022- No 1{patch Q24H Place [address] (LIDODERM) 2- 02-04 } patch onto Susanna kes 5 % patch 00:00: 00:00 the skin Med ical 00 :00 daily for Center 30 days Remove & Discard patch within 12 hours or as directed by . cholestyram 2021-0 2022- No 1{packe Q.5D Take [address] ine 2-04 02-04 t} packet by [employer] (QUESTRAN) 00:00: 00:00 mouth 2 Med ical 4 gram PwPk 00 :00 (two) Center packet times daily. fidaxomicin 2-0 2022- No 200mg Take [address] 200 mg Tab 2-04 02-04 tablet [facility]ukes 00:00: 00:00 (200 mg Medical 00 :00 total) by Center mouth every 12 (twelve) hours for 7 days. lidocaine 2021-0 2022- No 1{patch Q24H Place [address] (LIDODERM) 2- 02-04 } patch onto Susanna kes 5 % patch 00:00: 00:00 the skin Med ical 00 :00 daily for Center 30 days Remove & Discard patch within 12 hours or as directed by . cholestyram 2-0 2022- No 1{packe Q.5D Take [address] ine 2-04 02-04 t} packet by [employer] (QUESTRAN) 00:00: 00:00 mouth 2 Med ical [...] MG 16:27: mouth Medical tablet 53 nightly. Adell eszopiclone Yes 2mg Take [address] (LUNESTA) 2 1-24 by mouth Luke s MG tablet 16:27: every Medical 52 night as Center needed. gabapentin Yes 1{capsu Q.5D Take [address] (NEURONTIN) 1-24 le} capsule by Susanna leong 300 MG 16:27: mouth 2 Medical capsule 52 (two) Center times daily. lactulose Yes 1{packe Q.[id number] Take [address] (Kristalose 1-24 t} [id number] packet by Gurpreet ) 20 gram 16:27: [...] daily as l needed for anxiety. Per [facility] on Drug Monitoring Program records: Last [...] tablet 18:28: nightly. Hosp page 48 Per [facility] Prescripti on Drug Monitoring Program records: Last filled: 08/09/21 Quantity: 30 Days Supply: 30 traMADoL Yes 50mg Q4H Take 50 mg Met hodi (ULTRAM) 50 -[address] mg tablet 18:28: every 4 Hospi ta 48 (four) l hours as needed for moderate pain. Per [place] Prescripti on Drug Monitoring Program records: [...] 50mg QD Take 50 mg [facility] (SEROquel) [address] 200 MG 10:29: 00:00 nightly. Hospit a tablet 47 :00 l SUMAtriptan Yes [id number] 50mg Q24H Take 1 [facility] (Imitrex) 1-10 tablet (50 st 50 MG 00:00: mg total) Hospita tablet 00 by mouth l daily as needed for migraine for up to 30 doses. May repeat in 2 hours if unresolved . Max dose 200 mg/day escitalopra 2021- No 10mg QD Take 1 Met hodi m (LEXAPRO) -10 02-10 tablet (10 s t 10 MG 00:00: 05:59 mg total) Hospit a tablet 00 :00 by mouth l nightly for 30 days. pantoprazol 2021- No [id number] 40mg QD Take 1 Method[facility] e 1-10 02-10 tablet (40 st (PROTONIX) 00:00: 05:59 mg [...] for 30 days. gabapentin 2021- No 300mg Q.[id number] Take 1 [facility] (NEURONTIN) 04-[id number] 300 mg 00:00: 00:00 3D (300 mg Hospita capsule 00 :00 total) by l mouth 3 (three) times a day for 30 days. Ketorolac Ketorolac 2020-0 No 30mg Com mon (Toradol) (Toradol) 8-24 Spiri t per 15mg per 15mg 00:00: - [facility] Ketorolac Ketorolac 2020-0 No 30mg Com mon (Toradol) (Toradol) 8-24 Spiri t per 15mg per 15mg 00:00: - [facility] Ketorolac Ketorolac 2020-0 No 30mg Com mon (Toradol) (Toradol) 8-24 Spiri t per 15mg per 15mg 00:00: - [facility] Ketorolac Ketorolac 2020-0 No 30mg Com mon (Toradol) (Toradol) 8-24 Spiri t per 15mg per 15mg 00:00: - [facility] Vitamin B12 Vitamin B12 2020-0 No 1000ug Common (Cyanocobal (Cyanocobal 7-24 S pirit jameson) jameson) 00:00: - [facility] Vitamin B12 Vitamin B12 2020-0 No 1000ug Common (Cyanocobal (Cyanocobal 7-24 S pirit jameson) jameson) 00:00: - [facility] Vitamin B12 Vitamin B12 2020-0 No 1000ug Common (Cyanocobal (Cyanocobal 7-24 S pirit jameson) jameson) 00:00: - [facility] Vitamin B12 Vitamin B12 2020-0 No 1000ug Common (Cyanocobal (Cyanocobal 7-24 S pirit jameson) jameson) 00:00: - [facility] pantoprazol 2021- No [id number] 40mg QD Take 1 Methodi e 01-24 tablet (40 st (PROTONIX) 00:00: 00:00 mg total) H ospita 40 MG EC 00 :00 by mouth l tablet every morning. SUMAtriptan 2021- No [id number] 50mg Q24H Take 1 [facility] (Imitrex) 01-24 [...] X 1" 00 BD Disp BD Disp 2019- No BD Disp Needle 25G Needle 25G 2-09 Needle 25G X 1" X 1" 00:00: X 1" 00 BD Disp BD Disp 2019- No BD Disp Needle 25G Needle 25G 2-09 Needle 25G X 1" X 1" 00:00: X 1" 00 BD Disp BD Disp 2019- No BD Disp Needle 25G Needle 25G [...] X 1" 00 Vitamin B12 Vitamin B12 2018-1 No 1000ug Common (Cyanocobal (Cyanocobal 2-05 S pirit jameson) jameson) 00:00: - [facility] Vitamin B12 Vitamin B12 2019-1 No 1000ug Common (Cyanocobal (Cyanocobal 2-05 S pirit jameson) jameson) 00:00: - [facility] 00 [facility] Vitamin B12 Vitamin B12 2019-1 No 1000ug Common (Cyanocobal (Cyanocobal 2-05 S pirit jameson) jameson) 00:00: - [facility] 00 [facility] Vitamin B12 Vitamin B12 2019-1 No 1000ug Common (Cyanocobal (Cyanocobal 2-05 S pirit jameson) jameson) 00:00: - [facility] 00 [facility] Vitamin B12 Vitamin B12 2019-0 No 1000ug Common (Cyanocobal (Cyanocobal 8-29 S pirit jameson) jameson) 00:00: - [facility] 00 [facility] Vitamin B12 Vitamin B12 2019-0 No 1000ug Common (Cyanocobal (Cyanocobal 8-29 S pirit jameson) jameson) 00:00: - [facility] Vitamin B12 Vitamin B12 2019-0 No 1000ug Common (Cyanocobal (Cyanocobal 8-29 S pirit jameson) jameson) 00:00: - [facility] 00 [facility] Vitamin B12 Vitamin B12 2018-0 No 1000ug Common (Cyanocobal (Cyanocobal 8-29 S pirit jameson) jameson) 00:00: - [facility] eszopiclone 2019-0 Yes 2mg Take 2 mg U nivers 2 mg tablet 7-29 by mouth ity of 16:42: at [place] [address] bedtime. Medical Branch GABAPENTIN [id number] Yes Take by [facility] ers ORAL 7-29 mouth. ity of 16:42: [place] [address] Medical Branch traMADOL 50 0 Yes 50mg Take 50 mg Univers mg tablet 7-29 by mouth ity of 16:42: as needed [place] [address] for Pain Medical (scale Branch 7-10). eszopiclone 2019-0 Yes 2mg Take 2 mg U nivers 2 mg tablet 7-29 by mouth ity of 16:42: at [place] [address] bedtime. Medical Branch GABAPENTIN 0 Yes Take by [facility] ers ORAL 7-29 mouth. ity of 16:42: [place] [address] Medical Branch traMADOL 50 0 Yes 50mg Take 50 mg Univers mg tablet 7-29 by mouth ity of 16:42: as needed [place] [address] for Pain Medical (scale Branch 7-10). eszopiclone 2019-0 Yes 2mg Take 2 mg U nivers 2 mg tablet 7-29 by mouth ity of 16:42: at [place] [address] bedtime. Medical Branch GABAPENTIN 0 Yes Take by [facility] ers ORAL 7-29 mouth. ity of 16:42: [place] [address] Medical Branch traMADOL 50 0 Yes 50mg Take 50 mg Univers mg tablet 7-29 by mouth ity of 16:42: as needed [place] [address] for Pain Medical (scale Branch 7-10). eszopiclone 2019-0 Yes 2mg Take 2 mg U nivers 2 mg tablet 7-29 by mouth ity of 16:42: at [place] [address] bedtime. Medical Branch GABAPENTIN 0 Yes Take by Univ ers ORAL 7-29 mouth. ity of 16:42: [place] [address] Medical Branch traMADOL 50 0 Yes 50mg Take 50 mg Univers mg tablet 7-29 by mouth ity of 16:42: as needed [place] [address] for Pain Medical (scale Branch 7-10). lactulose 2019-0 Yes [id number] 20g Take 1 Un linda (KRISTALOSE 7-29 Packet by ity of ) 20 gram 00:00: mouth 3 [place] packet 00 (three) Medical times Branch daily. lactulose 2019-0 Yes [id number] 20g Take 1 Un linda (KRISTALOSE 7-29 Packet by ity of ) 20 gram 00:00: mouth 3 [place] packet 00 (three) Medical times Branch daily. lactulose 2019-0 Yes [id number] 20g Take 1 Un linda (KRISTALOSE 7-29 Packet by ity of ) 20 gram 00:00: mouth 3 [place] packet 00 (three) Medical times Branch daily. lactulose 2019-0 Yes [id number] 20g Take 1 Un linda (KRISTALOSE 7-29 Packet by ity of ) 20 gram 00:00: mouth 3 [place] packet 00 (three) Medical times Branch daily. ondansetron 2018-0 Yes [id number] 8mg Take 2 Univers 4 mg tablet 4-01 tablets by it y of 00:00: mouth [place] 00 every 8 Medical (eight) Branch hours as needed for Nausea and Vomiting (N/V). ondansetron 2018-0 Yes [id number] 8mg Take 2 Univers 4 mg tablet 4-01 tablets by it y of 00:00: mouth [place] 00 every 8 Medical (eight) Branch hours as needed for Nausea and Vomiting (N/V). ondansetron 2018-0 Yes [id number] 8mg Take 2 Univers 4 mg tablet 4-01 tablets by it y of 00:00: mouth [place] 00 every 8 Medical (eight) Branch hours as needed for Nausea and Vomiting (N/V). ondansetron 2018-0 Yes [id number] 8mg Take 2 Univers 4 mg tablet 4-01 tablets by it y of 00:00: mouth [place] 00 every 8 Medical (eight) Branch hours as needed for Nausea and Vomiting (N/V). butalbital- 2018- Yes [id number] 1{capsu Take 1 Univers aspirin-caf 3-25 le} capsule by it y of feine 00:00: mouth [place] 50-325-40 00 every 4 Medical mg per (four) Branch capsule hours as needed for Pain (headache unrelieved wtih other medication s). butalbital- 2018-0 Yes [id number] 1{capsu Take 1 Univers aspirin-caf 3-25 le} capsule by it y of feine 00:00: mouth [place] 50-325-40 00 every 4 Medical mg per (four) Branch capsule hours as needed for Pain (headache unrelieved wtih other medication s). butalbital- Yes [id number] 1{capsu Take 1 Univers aspirin-caf 3-25 le} capsule by it y of feine 00:00: mouth [place] 50-325-40 00 every 4 Medical mg per (four) Branch capsule hours as needed for Pain (headache unrelieved wtih other medication s). butalbital Yes [id number] 1{capsu Take 1 Univers aspirin-caf 3-25 le} capsule by it y of feine 00:00: mouth [place] 50-325-40 00 every 4 Medical mg per (four) Branch capsule hours as needed for Pain (headache unrelieved wtih other medication s). Albuterol Albuterol No 2{puffs Albuterol Sulfate HFA Sulfate HFA 29 _as_nee Sulfate 108 (90 108 (90 00:00: ded} HFA 108 Base) Base) 00 (90 Base) MCG/ACT MCG/ACT MCG/ACT Albuterol Albuterol No 2{puffs Albuterol Sulfate HFA Sulfate HFA 129 _as_nee Sulfate 108 (90 108 (90 00:00: ded} HFA 108 Base) Base) 00 (90 Base) MCG/ACT MCG/ACT MCG/ACT XIFAXAN 550 2016-08 Yes [id number] TAKE ONE Univers mg tablet 1-27 TABLET BY ity o f 00:00: MOUTH 2 [place] 00 TIMES A Medical DAY Branch PANTOPRAZOL 2016-08 Yes [id number] TAKE ONE Univers E 40 mg EC 1-27 TABLET BY ity of tablet 00:00: MOUTH [place] 00 EVERY DAY Medical Branch XIFAXAN 550 2016-08 Yes [id number] TAKE ONE Univers mg tablet 1-27 TABLET BY ity o f 00:00: MOUTH 2 [place] 00 TIMES A Medical DAY Branch PANTOPRAZOL 2016-08 Yes [id number] TAKE ONE Univers E 40 mg EC 1-27 TABLET BY ity of tablet 00:00: MOUTH [place] 00 EVERY DAY Medical Branch XIFAXAN 550 2016-08 Yes [id number] TAKE ONE Univers mg tablet 1-27 TABLET BY ity o f 00:00: MOUTH 2 [place] 00 TIMES A Medical DAY Branch PANTOPRAZOL 2016- Yes [id number] TAKE ONE Univers E 40 mg EC 1-27 TABLET BY ity of tablet 00:00: MOUTH [place] 00 EVERY DAY Medical Branch XIFAXAN 550 2016-08 Yes [id number] TAKE ONE Univers mg tablet 1-27 TABLET BY ity o f 00:00: MOUTH 2 [place] 00 TIMES A Medical DAY Branch PANTOPRAZOL 2016-08 Yes [id number] TAKE ONE Univers E 40 mg EC [...] by ity of tablet 00:00: mouth 3 [place] 00 (three) Medical times Branch daily. furosemide 2015-08 Yes 40mg Take 40 mg U nivers 40 mg 0-10 by mouth. ity of tablet 00:00: [place] [address] Medical Branch furosemide 2015-08 Yes 40mg Take 40 mg U nivers 40 mg 0-10 by mouth. ity of tablet 00:00: [address] furosemide 2015-08 Yes 40mg Take 40 mg U nivers 40 mg 0-10 by mouth. ity of tablet 00:00: [address] furosemide 2015-08 Yes 40mg Take 40 mg U nivers 40 mg 0-10 by mouth. ity of tablet 00:00: [address] Branch Allopurinol Allopurinol Yes Fernando 2 tablets [facility] Zofran ODT Zofran ODT No 1{table [...] 25G Syringe X 5/8" 1 ML X 8" 1 ML 25G X 8" 1 ML Syringe 2-3 Syringe 2-3 No [...] TB Syringe 25G Syringe 25G Syringe X 8" 1 ML X 12/17" 1 ML 25G X 8" 1 ML Topiramate Topiramate No Topiramate 50 [...] 2021-04-12 Completed Universit y of Vaccine 00:00:00 [facility] [place] Influenza Virus 2021-04-12 Completed Universit y of Vaccine 00:00:00 [facility] [place] Influenza Virus 2021-04-12 Completed Universit y of Vaccine 00:00:00 [facility] [place] Influenza Virus 2021-04-12 Completed Universit y of Vaccine 00:00:00 [facility] [place] SARS-COV-2 COVID-19 2020-12-14 Completed Unive rsity of YANIRA/J&J VACCINE 00:00:00 [facility] [place] SARS-COV-2 COVID-19 2020-12-14 Completed Unive rsity of YANIRA/J&J VACCINE 00:00:00 [facility] [place] SARS-COV-2 COVID-19 2020-12-14 Completed Unive rsity of YANIRA/J&J VACCINE 00:00:00 [facility] [place] SARS-COV-2 COVID-19 2020-12-14 Completed Unive rsity of YANIRA/J&J VACCINE 00:00:00 [facility] [place] Ketorolac (Toradol) Ketorolac (Toradol) 2020-04-04 Completed [facility] - per 15mg per 15mg 11:19:00 [facility] Ketorolac (Toradol) Ketorolac (Toradol) 2020-04-04 Completed [facility] - per 15mg per 15mg 11:19:00 [facility] Ketorolac (Toradol) Ketorolac (Toradol) 2020-04-04 Completed [facility] - per 15mg per 15mg 11:19:00 [facility] Ketorolac (Toradol) Ketorolac (Toradol) 2020-04-04 Completed [facility] - per 15mg per 15mg 11:19:00 [facility] Ketorolac (Toradol) Ketorolac (Toradol) 2020-04-04 Completed [facility] - per 15mg per 15mg 11:19:00 [facility] Ketorolac (Toradol) Ketorolac (Toradol) 2020-04-04 Completed [facility] - per 15mg per 15mg 11:19:00 [facility] Ketorolac (Toradol) Ketorolac (Toradol) 2020-04-04 Completed [facility] - per 15mg per 15mg 11:19:00 [facility] Ketorolac (Toradol) Ketorolac (Toradol) 2020-04-04 Completed [facility] - per 15mg per 15mg 11:19:00 [facility] Vitamin B12 Vitamin B12 2019-07-16 Completed [facility] - (Cyanocobalamin) (Cyanocobalamin) 13:54:00 [facility] Vitamin B12 Vitamin B12 2019-07-16 Completed [facility] - (Cyanocobalamin) (Cyanocobalamin) 13:54:00 [facility] Vitamin B12 Vitamin B12 2019-07-16 Completed [facility] t - (Cyanocobalamin) (Cyanocobalamin) 13:54:00 [facility] Vitamin B12 Vitamin B12 2019-07-16 Completed [facility] Sp[facility] t - (Cyanocobalamin) (Cyanocobalamin) 13:54:00 I [facility] Vitamin B12 Vitamin B12 2019-07-16 Completed Common Spiri t - (Cyanocobalamin) (Cyanocobalamin) 13:54:00 I [facility] Vitamin B12 Vitamin B12 2019-07-16 Completed [facility] - (Cyanocobalamin) (Cyanocobalamin) 13:54:00 I [facility] Vitamin B12 Vitamin B12 2019-07-16 Completed [facility] - (Cyanocobalamin) (Cyanocobalamin) 13:54:00 I [facility] Vitamin B12 Vitamin B12 2019-07-16 Completed [facility] t - (Cyanocobalamin) (Cyanocobalamin) 13:54:00 I [facility] Vitamin B12 Vitamin B12 2019-04-09 Completed [facility] - (Cyanocobalamin) (Cyanocobalamin) 14:26:00 [facility] Vitamin B12 Vitamin B12 2019-04-09 Completed [facility] - (Cyanocobalamin) (Cyanocobalamin) 14:26:00 [facility] Vitamin B12 Vitamin B12 2019-04-09 Completed [facility] Sp[facility] t - (Cyanocobalamin) (Cyanocobalamin) 14:26:00 [facility] Vitamin B12 Vitamin B12 2019-04-09 Completed [facility] t - (Cyanocobalamin) (Cyanocobalamin) 14:26:00 [facility] Vitamin B12 Vitamin B12 2019-04-09 Completed [facility] Sp[facility] t - (Cyanocobalamin) (Cyanocobalamin) 14:26:00 [facility] Vitamin B12 Vitamin B12 2019-04-09 Completed [facility] - (Cyanocobalamin) (Cyanocobalamin) 14:26:00 I [facility] Vitamin B12 Vitamin B12 2019-04-09 Completed [facility] Spiri t - (Cyanocobalamin) (Cyanocobalamin) 14:26:00 I [facility] Vitamin B12 Vitamin B12 2019-04-09 Completed [facility] Spiri t - (Cyanocobalamin) (Cyanocobalamin) 14:26:00 I [facility] Influenza (IM) 2018-04-21 Completed [facility] Preservative Free 00:00:00 Hospita l Influenza Virus 2018-04-21 Completed Universit y of Vaccine (3+ yrs) 00:00:00 [facility] Branch Influenza Virus 2018-04-21 Completed Universit y of Vaccine (3+ yrs) 00:00:[address] [facility] Influenza Virus 2018-04-21 Completed Universit y of Vaccine (3+ yrs) 00:00:[address] [facility] Influenza Virus 2018-04-21 Completed Universit y of Vaccine (3+ yrs) 00:00:00 [facility] Branch Pneumococcal 2016-05-08 Completed [facility] Conjugate 13-Valent 00:00:00 Hospi mateo FLUCELVAX QUAD PF 2016-05-[address] 00:00:00 Hospital Pneumococcal 13 2016-05-08 Completed Universit y of Conjugate, PCV13 00:00:00 [facility] dical (Prevnar 13) Branch Pneumococcal 13 2016-05-08 Completed Universit y of Conjugate, PCV13 00:00:00 [facility] dical (Prevnar 13) Branch Pneumococcal 13 2016-05-08 Completed Universit y of Conjugate, PCV13 00:00:00 [facility] dical (Prevnar 13) Branch Pneumococcal 13 2016-05-08 Completed Universit y of Conjugate, PCV13 00:00:00 [facility] dical (Prevnar 13) Branch Vital Signs Vital Name Observation Time Observation Value Comments Source Systolic blood 2022-11-07 17:39:00 111 mm[Hg] Univer sity of pressure [facility] [place] Diastolic blood 2022-11-07 17:39:00 64 mm[Hg] [facility] Heart rate 2022-11-07 17:39:00 79 /min [facility] Body temperature 2022-11-07 17:39:00 36.5 Georgette [facility] Respiratory rate 2022-11-07 17:39:00 18 /min [facility] Body weight 2022-11-07 17:39:00 80.287 kg [facility] BMI 2022-11-07 17:39:00 35.75 kg/m2 [facility] Oxygen saturation in 2022-11-07 17:39:00 99 /min [facility] Arterial blood by [facility] Pulse oximetry Branch Systolic blood 2021-11-16 18:59:00 111 mm[Hg] Univer sity of pressure [facility] [place] Diastolic blood 2021-11-16 18:59:00 74 mm[Hg] Unive rsity of [facility] Heart rate 2021-11-16 18:59:00 75 /min [facility] Body temperature 2021-11-16 18:59:00 36.67 [facility] height 2021-11-16 18:59:00 149.9 cm [facility] Body weight 2021-11-16 18:59:00 80.559 kg [facility] BMI 2021-11-16 18:59:00 35.87 kg/m2 [facility] height 2021-10-16 15:30:00 59 [in_i] [facility] weight 2021-10-16 15:30:00 176.5 [lb_av] [facility] temperature 2021-10-16 15:30:00 97.2 [degF] [facility] bmi 2021-10-16 15:30:00 35.64 kg/m2 [facility] oximetry 2021-10-16 15:30:00 100 % [facility] respiratory rate 2021-10-16 15:30:00 18 /min [facility] blood pressure 2021-10-16 15:30:00 123 mm[Hg] Common [facility] - systolic [facility] blood pressure 2021-10-16 15:30:00 65 mm[Hg] Common [facility] - diastolic [facility] height 2021-09-25 10:40:00 59 [in_i] Common [facility] weight 2021-09-25 10:40:00 190 [lb_av] [facility] temperature 2021-09-25 10:40:00 97.4 [degF] [facility] bmi 2021-09-25 10:40:00 38.37 kg/m2 Common S pirit - [facility] blood pressure 2021-09-25 10:40:00 125 mm[Hg] [facility] - systolic [facility] blood pressure 2021-09-25 10:40:00 76 mm[Hg] [facility] - diastolic [facility] HEIGHT 2021-09-02 15:44:00 149.9 cm WEIGHT 2021-09-02 15:44:00 87.091 kg HEIGHT 2021-09-02 15:44:00 149.9 cm WEIGHT 2021-09-02 15:44:00 87.091 kg height 2021-04-26 10:30:00 59 [in_i] Common [facility] weight 2021-04-26 10:30:00 215 [lb_av] [facility] temperature 2021-04-26 10:30:00 98 [degF] [facility] bmi 2021-04-26 10:30:00 43.42 kg/m2 [facility] blood pressure 2021-04-26 10:30:00 121 mm[Hg] [facility] - systolic [facility] blood pressure 2021-04-26 10:30:00 70 mm[Hg] [facility] - diastolic [facility] height 2021-04-26 14:20:00 59 [in_i] [facility] weight 2021-04-26 14:20:00 215 [lb_av] [facility] temperature 2021-04-26 14:20:00 98 [degF] [facility] bmi 2021-04-26 14:20:00 43.42 kg/m2 Common [facility] oximetry 2021-04-26 14:20:00 100 % [facility] blood pressure 2021-04-26 14:20:00 121 mm[Hg] [facility] - systolic [facility] blood pressure 2021-04-26 14:20:00 70 mm[Hg] [facility] - diastolic [facility] Systolic blood 2021-09-16 08:00:00 98 mm[Hg] [facility] Diastolic blood 2021-09-16 08:00:00 49 mm[Hg] [facility] Heart rate 2021-09-16 08:00:00 89 /min [facility] Body temperature 2021-09-16 08:00:00 36.17 Georgette [facility] Respiratory rate 2021-09-16 08:00:00 18 /min [facility] Oxygen saturation in 2021-09-16 08:00:00 99 /min [facility] Arterial blood by Medical Ce nter Pulse oximetry Systolic blood 2021-09-11 19:42:00 125 mm[Hg] [facility] Diastolic blood 2021-09-11 19:42:00 60 mm[Hg] [facility] Heart rate 2021-09-11 19:42:00 98 /min [facility] Body temperature 2021-09-11 19:42:00 35.67 Georgette [facility] Respiratory rate 2021-09-11 19:42:00 18 /min [facility] Oxygen saturation in 2021-09-11 19:42:00 100 /min [facility] Arterial blood by Medical Ce nter Pulse oximetry Body height 2021-09-02 15:44:00 149.9 cm [facility] Body weight 2021-09-02 15:44:00 87.091 kg [facility] BMI 2021-09-02 15:44:00 38.78 kg/m2 [facility] Systolic blood 2021-08-31 06:30:00 119 mm[Hg] [facility] Di[facility] blood 2021-08-31 06:30:00 68 mm[Hg] [facility] pressure Heart rate 2021-08-31 06:30:00 70 /min [facility] Respiratory rate 2021-08-31 06:30:00 16 /min [facility] Oxygen saturation in 2021-08-31 06:30:00 97 /min [facility] Arterial blood by Pulse oximetry Body temperature 2021-08-31 04:04:09 36.83 Georgette Meth [facility] Body height 2021-08-31 04:04:00 149.9 cm [facility] Body weight 2021-08-31 04:04:00 89.359 kg [facility] BMI 2021-08-31 04:04:00 39.79 kg/m2 [facility] Procedures Procedure Date / Time Performing Clinician Source Performed NOTICE OF PRIVACY 2022-11-07 17:30:44 Doctor Unassigned, No [facility] PRACTICES Name Medical Branch CONSENT/REFUSAL FOR 2022-11-07 17:30:27 Doctor Unassigned, No [facility] DIAGNOSIS AND TREATMENT [facility] EXTERNAL PROVIDER RECORDS 2022-02-08 05:01:00 Doctor Unassigned, No [facility] HEPATITIS A ANTIBODY, IGM 2022-01-23 15:13:00 [facility] HEPATITIS B SURFACE 2022-01-23 15:13:00 [facility] [place] HEPATITIS B CORE ANTIBODY, 2022-01-23 15:13:00 [facility] HEPATITIS C ANTIBODY 2022-01-23 15:13:00 [facility] HEPATIC FUNCTION PANEL 2021-09-15 05:20:00 Niya Cartagena [facility] CBC W/PLT COUNT & AUTO 2021-09-15 05:20[facility]00 [facility]R 2021-09-15 05:20:00 Niya Cartagena [facility] BASIC METABOLIC PANEL 2021-09-15 05:20:00 Niya Cartagena [facility] CBC W/PLT COUNT & AUTO 2021-09-15 05:20:[address] [facility] CT ABDOMEN/PELVIS WITHOUT 2021-09-15 00:49:00 Kendy [facility] IV CONTRAST [facility] CBC W/PLT COUNT & AUTO 2021-09-14 08:36:[address] [facility] CBC W/PLT COUNT & AUTO 2021-09-14 08:36:[address] [facility] HEPATIC FUNCTION PANEL 2021-09-14 07:35:00 KaimNiya [facility] PROTHROMBIN TIME/INR 2021-09-14 07:35:00 Kaim, Niya [facility] BASIC METABOLIC PANEL 2021-09-14 07:35:00 LizzimNiya C [facility] HEPATIC FUNCTION PANEL 2021-09-13 07:14:00 Kaim, Niya White [facility] CBC W/PLT COUNT & AUTO 2021-09-13 07:14:[address] [facility] PROTHROMBIN TIME/INR 2021-09-13 07:14:00 Kaim, Niya [facility] BASIC METABOLIC PANEL 2021-09-13 07:14:00 LizzimNiya C [facility] CBC W/PLT COUNT & AUTO 2021-09-13 07:14:[address] [facility] HEPATIC FUNCTION PANEL 2021-09-12 04:23:00 [facility] AUTO 2021-09-12 04:23:[address] [facility] PROTHROMBIN TIME/INR 2021-09-12 04:23:00 LizzimNiya [facility] BASIC METABOLIC PANEL 2021-09-12 04:23:00 Kaim, Niya [facility] MAGNESIUM 2021-09-12 04:23:00 Selma Lu [facility] VITAMIN B12 2021-09-12 04:23:00 Mirna [facility] VITAMIN D, 25-HYDROXY 2021-09-12 04:23:00 [facility] PROTEIN 2021-09-12 04:23:00 [facility] W/PLT COUNT & AUTO 2021-09-12 04:23:[address] [facility] HEPATIC FUNCTION PANEL 2021-09-11 05:33:00 [facility] W/[facility]T [facility] & AUTO 2021-09-11 05:33:[address] [facility] PROTHROMBIN TIME/INR 2021-09-11 05:33:00 Kaim Niya [facility] BASIC METABOLIC PANEL 2021-09-11 05:33:00 Kaim, Niya Cindy C [facility] MAGNESIUM 2021-09-11 05:33:00 Selma Lu [facility] CBC W/PLT COUNT & AUTO 2021-09-11 05:33:00 [facility] 2021-09-10 06:52:00 Kajag Niya [facility] CBC W/PLT COUNT & AUTO 2021-09-10 06:52:[address] [facility] PROTHROMBIN TIME/INR 2021-09-10 06:52:00 Kaim Niya [facility] BASIC METABOLIC PANEL 2021-09-10 06:52:00 Kaim Niya Cindy C [facility] MAGNESIUM 2021-09-10 06:52:00 Selma Lu [facility] CBC W/PLT COUNT & AUTO 2021-09-10 06:52:[address] [facility] HEPATIC FUNCTION PANEL 2021-09-09 05:51:00 Kaim Niya Cindy [facility] CBC W/PLT COUNT & AUTO 2021-09-09 05:51:[address] [facility] PROTHROMBIN TIME/INR 2021-09-09 05:51:00 Kaim Niya [facility] BASIC METABOLIC PANEL 2021-09-09 05:51:00 Kaim, Niya Cindy C [facility] CBC W/PLT COUNT & AUTO 2021-09-09 05:51:[address] [facility] (CELLAVISION MANUAL DIFF) 2021-09-09 05:51:00 Niya Cartagena [facility] AMMONIA 2021-09-08 10:54:00 Aly Selma Joana [facility] PHOSPHORUS 2021-09-08 05:14:00 Isabella, [facility] HEPATIC FUNCTION PANEL 2021-09-08 05:14:00 [facility] CBC W/PLT COUNT & AUTO 2021-09-08 05:14:00 [facility] PROTHROMBIN TIME/INR 2021-09-08 05:14:00 Niya Cartagena [facility] BASIC METABOLIC PANEL 2021-09-08 05:14:00 Niya Cartagena [facility] CBC W/PLT COUNT & AUTO 2021-09-08 05:14:[address] [facility] (CELLAVISION MANUAL DIFF) 2021-09-08 05:14:00 Niya Cartagena [facility] PHOSPHORUS 2021-09-07 05:37:00 Isabella, [facility] HEPATIC FUNCTION PANEL 2021-09-07 05:37:00 [facility] CBC W/PLT COUNT & AUTO 2021-09-07 05:37:[address] [facility] PROTHROMBIN TIME/INR 2021-09-07 05:37:00 Niya Cartagena [facility] BASIC METABOLIC PANEL 2021-09-07 05:37:00 Niya Cartagena [facility] CBC W/PLT COUNT & AUTO 2021-09-07 05:37:00 [facility] (CELLAVISION MANUAL DIFF) 2021-09-07 05:37:00 Niya Cartagena on [facility] PROTHROMBIN TIME/INR 2021-09-06 06:37:00 Henry Cartagenalie Cindy CH I [facility] BASIC METABOLIC PANEL 2021-09-06 06:37:00 Isabella, Mrinalini CH I [facility] PHOSPHORUS 2021-09-06 06:37:00 Isabella, Mrinalini [facility] PROTHROMBIN TIME/INR 2021-09-05 14:31:00 Henry Cartagenalie Cindy CH I [facility] BASIC METABOLIC PANEL 2021-09-05 14:31:00 Isabella, Mrinalini CH I [facility] PHOSPHORUS 2021-09-05 14:31:00 Isabella, Mrinalini [facility] CBC W/PLT COUNT & AUTO 2021-09-05 14:31:00 Gianna Masonnalini C [facility] HEPATIC FUNCTION PANEL 2021-09-05 14:31:00 Isabella, Mrinalini [facility] CBC W/PLT COUNT & AUTO 2021-09-05 14:31:00 Gianna Masonnalini C [facility] (CELLAVISION MANUAL DIFF) 2021-09-05 14:31:00 Isabella, Mrinalin i [facility] C. DIFFICILE GDH TOXIN 2021-09-04 11:52:[address] A[address]aqueline [facility] CT ABDOMEN/PELVIS WITH IV 2021-09-04 09:03:00 Mirian Goodman [facility] CONTRAST [facility] CT CHEST WITH IV CONTRAST 2021-09-04 09:03:00 Isabella, Giannanalin i [facility] CBC W/PLT COUNT & AUTO 2021-09-04 04:39:[address] [facility] COMPREHENSIVE METABOLIC 2021-09-04 04:39:00 Nia Lawrence [facility] MAGNESIUM 2021-09-04 04:39:00 Nia Lawrence [facility] PHOSPHORUS 2021-09-04 04:39:00 Nia Lawrence [facility] CBC W/PLT COUNT & AUTO 2021-09-04 04:39:[address] [facility] (CELLAVISION MANUAL DIFF) 2021-09-04 04:39:00 Nia Lawrence sa [facility] HEPATITIS A ANTIBODY, IGG 2021-09-03 12:02:[address] [facility] HEPATITIS B CORE ANTIBODY, 2021-09-03 12:02:00 Gianna Masonnali ni [facility] TOTAL [facility] HEPATITIS B SURFACE 2021-09-03 12:02:00 Gianna Masonnalini [facility] ANTIBODY [facility] HEPATITIS B SURFACE 2021-09-03 12:02:00 Juve Masonini [facility] ANTIGEN [facility] HEPATITIS C ANTIBODY 2021-09-03 12:02:[address] [facility] CBC W/PLT COUNT & AUTO 2021-09-03 12:01:[address] [facility] COMPREHENSIVE METABOLIC 2021-09-03 12:01:00 Nia Lawrence [facility] MAGNESIUM 2021-09-03 12:01:00 Nia Lawrence [facility] PHOSPHORUS 2021-09-03 12:01:00 Nia Lawrence [facility] PROTHROMBIN TIME/INR 2021-09-03 12:01:[address] [facility] CBC W/PLT COUNT & AUTO 2021-09-03 12:01:[address] [facility] (CELLAVISION MANUAL DIFF) 2021-09-03 12:01:00 Nia Lawrence sa [facility] BLOOD CULTURE 2021-09-03 11:59:00 Nia Lawrence [facility] OVA AND PARASITE 2021-09-02 09:44:00 Troy Awadil [facility] EXAMINATION [facility] GI PATHOGEN PROFILE BY PCR 2021-09-02 09:44:00 Troy Awad [facility] BLOOD CULTURE 2021-09-02 06:03:00 Nia Lawrence [facility] CBC W/PLT COUNT & AUTO 2021-09-02 06:03:[address] [facility] COMPREHENSIVE METABOLIC 2021-09-02 06:03:00 Nia Lawrence [facility] MAGNESIUM 2021-09-02 06:03:00 Nia Lawrence [facility] PHOSPHORUS 2021-09-02 06:03:00 Nia Lawrence [facility] C-REACTIVE PROTEIN 2021-09-02 06:03:00 Nia Lawrence [facility] CBC W/PLT COUNT & AUTO 2021-09-02 06:03:[address] [facility] (CELLAVISION MANUAL DIFF) 2021-09-02 06:03:00 Nia Lawrence sa [facility] IRON, TIBC, % SAT. 2021-09-02 06:01:00 Nia Lawrence [facility] (WITHOUT FERRITIN) Medical [facility] VITAMIN B12 AND FOLATE 2021-09-02 06:01:00 Nia Lawrence [facility] CT BRAIN WITHOUT IV 2021-09-02 02:39:00 Nia Lawrence [facility] CONTRAST [facility] US ABDOMEN LIMITED 2021-09-02 02:09:00 Nia Lawrence [facility] URINE CULTURE 2021-09-02 01:29:00 Nia Lawrence [facility] URINALYSIS W/ REFLEX URINE 2021-09-02 01:29:00 Nia Lawrence [facility] CULTURE [facility] XR CHEST 1 VIEW PORTABLE / 2021-09-02 01:02:00 Nia Lawrence [facility] BEDSIDE [facility] CBC W/PLT COUNT & AUTO 2021-09-01 22:55:[address] [facility] LACTIC ACID, VENOUS 2021-09-01 22:55:00 Nia Lawrence [facility] PT/APTT 2021-09-01 22:55:00 Nia Lawrence [facility] HEPATIC FUNCTION PANEL 2021-09-01 22:55:00 Nia Lawrence [facility] BASIC METABOLIC PANEL 2021-09-01 22:55:00 Nia Lawrence [facility] MAGNESIUM 2021-09-01 22:55:00 Nia Lawrence [facility] PHOSPHORUS 2021-09-01 22:55:00 Nia Lawrence [facility] CBC W/PLT COUNT & AUTO 2021-09-01 22:55:[address] [facility] (CELLAVISION MANUAL DIFF) 2021-09-01 22:55:00 Nia Lawrence sa [facility] POCT-GLUCOSE METER 2021-09-01 22:36:00 Dawna Anguiano [facility] CT ABDOMEN PELVIS WO 2021-08-31 05:50:00 [facility] CONTRAST [facility] HC COMPLETE BLD COUNT 2021-08-31 04:21:00 [facility] W/AUTO DIFF [facility] COMPREHENSIVE METABOLIC 2021-08-31 04:21:00 [facility] PANEL [facility] LACTIC ACID, I-STAT 2021-08-31 04:21:00 [facility] ESTIMATED GFR 2021-08-31 04:21:00 [facility] SPIROMETRY, DIFFUSION, 2021-08-25 19:27:26 [facility] LUNG VOLUMES, MIPS/MEPS XR CHEST 2 VW 2021-08-25 18:00:20 Galati, [facility] XR PANOREX 2021-08-25 17:59:56 Jose [facility] POC GLUCOSE 2021-08-25 13:51:00 Jennifer Ghosh spital SALEEM-POSEY VIRUS 2021-08-25 11:08:00 [facility] HC COMPLETE BLD COUNT 2021-08-25 11:08:00 Jennifer Ghosh [facility] W/AUTO DIFF COMPREHENSIVE METABOLIC 2021-08-25 11:08:[address] [facility] PANEL PROTHROMBIN TIME WITH INR 2021-08-25 11:08:00 Jennifer Ghosh [facility] ESTIMATED GFR 2021-08-25 11:08:00 Jennifer Ghosh spital POC GLUCOSE 2021-08-25 03:18:00 Jennifer Ghosh spital POC GLUCOSE 2021-08-25 00:22:00 Jennifer Ghosh spital POC GLUCOSE 2021-08-24 19:43:00 Jennifer Ghosh spital CREATININE LEVEL, URINE, 2021-08-24 18:13:00 Jennifer Ghosh [facility] TIMED PROTEIN, URINE, TIMED 2021-08-24 18:13:00 Jennifer Ghosh [facility] CV SELECTIVE CORONARY 2021-08-24 16:44:00 [facility] [place] [facility] COMPLETE BLD COUNT 2021-08-24 11:01:00 [facility] DIFF [place] BASIC METABOLIC PANEL 2021-08-24 11:01:00 [facility] [place] HEPATIC FUNCTION PANEL 2021-08-24 11:01:00 [facility] [place] MAGNESIUM LEVEL 2021-08-24 11:01:00 Alma Girard spital [place] PROTHROMBIN TIME WITH INR 2021-08-24 11:01:00 [facility] [place] ESTIMATED GFR 2021-08-24 11:01:00 Alma Girard spital [place] POC GLUCOSE 2021-08-24 03:07:00 Jennifer Ghosh spital POC GLUCOSE 2021-08-24 00:11:00 Jennifer Ghosh COVID-19 QUALITATIVE 2021-08-23 22:15:00 Dayo Moeller [facility] RT-PCR POC GLUCOSE 2021-08-23 19:17:00 Jennifer Ghosh spital POC GLUCOSE 2021-08-23 14:05:00 Jennifer Ghosh HC COMPLETE BLD COUNT 2021-08-23 11:49:00 [facility] W/AUTO DIFF [facility] BASIC METABOLIC PANEL 2021-08-23 11:49:00 [facility] HEPATIC FUNCTION PANEL 2021-08-23 11:49:00 [facility] MAGNESIUM LEVEL 2021-08-23 11:49:00 [facility] PROTHROMBIN TIME WITH INR 2021-08-23 11:49:00 [facility] ALPHA FETOPROTEIN 2021-08-23 11:49:00 [facility] ALPHA-1 ANTITRYPSIN LEVEL 2021-08-23 11:49:00 [facility] ANTI SMOOTH MUSCLE AB 2021-08-23 11:49:00 [facility] SCREEN C-REACTIVE PROTEIN 2021-08-23 11:49:00 [facility] CANCER ANTIGEN 125 2021-08-23 11:49:00 [facility] CANCER ANTIGEN 19-9 2021-08-23 11:49:00 [facility] CARCINOEMBRYONIC ANTIGEN 2021-08-23 11:49:00 [facility] (CEA) CERULOPLASMIN LEVEL 2021-08-23 11:49:00 [facility] CORTISOL LEVEL, RANDOM 2021-08-23 11:49:00 [facility] CORTISOL, FREE BY 2021-08-23 11:49:00 [facility] ED/LC-MS/MS CYTOMEGALOVIRUS AB, IGG 2021-08-23 11:49:00 [facility] CYTOMEGALOVIRUS AB, IGM 2021-08-23 11:49:00 [facility] DRUG KIM 9, SER/THAIS, SCRN 2021-08-23 11:49:00 [facility] W/RFLX TO CONF FERRITIN LEVEL 2021-08-23 11:49:00 [facility] FIBRINOGEN 2021-08-23 11:49:00 [facility] HEPATITIS A ANTIBODY IGM 2021-08-23 11:49:00 [facility] HEPATITIS A ANTIBODY TOTAL 2021-08-23 11:49:00 [facility] HEPATITIS B CORE ANTIBODY 2021-08-23 11:49:00 [facility] TOTAL HEPATITIS B SURFACE 2021-08-23 11:49:00 [facility] ANTIBODY HEPATITIS B SURFACE 2021-08-23 11:49:00 [facility] ANTIGEN HEPATITIS C ANTIBODY 2021-08-23 11:49:00 [facility] HIV AG/AB COMBINATION 2021-08-23 11:49:00 [facility] HIV-1 RNA, QUALITATIVE TMA 2021-08-23 11:49:00 [facility] HLA TRANSPLANT EVALUATION 2021-08-23 11:49:00 [facility] LIPID PANEL 2021-08-23 11:49:00 [facility] BARBITURATES, S/P, QUANT 2021-08-23 11:49:00 [facility] PARTIAL THROMBOPLASTIN 2021-08-23 11:49:00 [facility] TIME (PTT) PHOSPHATIDYLETHANOL, BLOOD 2021-08-23 11:49:00 [facility] PHOSPHORUS LEVEL 2021-08-23 11:49:00 [facility] PREALBUMIN LEVEL 2021-08-23 11:49:00 [facility] SERUM ELECTROPHORESIS 2021-08-23 11:49:00 [facility] SYPHILIS TREPONEMA SCREEN 2021-08-23 11:49:00 [facility] WITH RPR CONFIRMATION (REVERSE ALGORITHM) T3, FREE 2021-08-23 11:49:00 [facility] TB T-SPOT 2021-08-23 11:49:00 [facility] TOTAL IRON BINDING 2021-08-23 11:49:00 [facility] CAPACITY ZINC LEVEL, SERUM 2021-08-23 11:49:00 [facility] ESTIMATED GFR 2021-08-23 11:49:00 Alma Girard shane [facility] SINGLE ANTIGEN BEADS 2021-08-23 11:49:00 [facility] C1Q CLASS 1 & 2 ANTIBODY 2021-08-23 11:49:[address] [facility] CT CHEST WO CONTRAST 2021-08-23 04:25:00 [facility] POC GLUCOSE 2021-08-23 02:55:00 Jennifer Ghosh shane US CAROTID DUPLEX 2021-08-23 02:40:00 [facility] BILATERAL TTE COMPLETE, WO CONTRAST, 2021-08-22 23:47:00 [facility] W AGITATED SALINE ([id number]) US ABDOMEN COMPLETE 2021-08-22 22:30:00 [facility] ECG 12-LEAD 2021-08-22 21:31:09 [facility] POC GLUCOSE 2021-08-22 13:43:00 Jennifer Ghosh shane HC COMPLETE BLD COUNT 2021-08-22 10:59:00 [facility] W/AUTO DIFF [facility] BASIC METABOLIC PANEL 2021-08-22 10:59:00 [facility] HEPATIC FUNCTION PANEL 2021-08-22 10:59:00 [facility] MAGNESIUM LEVEL 2021-08-22 10:59:00 Alma Girard spital [facility] PHOSPHORUS LEVEL 2021-08-22 10:59:00 Alma Girard ospital [facility] PROTHROMBIN TIME WITH INR 2021-08-22 10:59:00 [facility] ESTIMATED GFR 2021-08-22 10:59:00 Alma Girard spital [facility] POC GLUCOSE 2021-08-22 03:06:00 Jennifer Ghosh Ho spital POC GLUCOSE 2021-08-22 00:27:00 Jennifer Ghosh spital POC GLUCOSE 2021-08-21 19:09:00 Jennifer Ghosh Ho spital POC GLUCOSE 2021-08-21 13:46:00 Alma Girard spital [facility] HC COMPLETE BLD COUNT 2021-08-21 10:56:00 Ting Pierson [facility] W/AUTO DIFF [facility] BASIC METABOLIC PANEL 2021-08-21 10:56:00 [facility] HEPAT[facility] FUNCTION PANEL 2021-08-21 10:56:00 [facility] MAGN[facility]UM LEVEL 2021-08-21 10:56:00 Alma Girard spital [facility] PHOSPHORUS LEVEL 2021-08-21 10:56:00 Alma Girard ospital [facility] PROTHROMBIN TIME WITH INR 2021-08-21 10:56:00 [facility] 2021-08-21 10:56:00 Alma Girard spital [facility] POC GLUCOSE 2021-08-21 03:20:00 Alma Girard spital [place] POC GLUCOSE 2021-08-20 14:56:00 Jennifer Ghosh spital HC COMPLETE BLD COUNT 2021-08-20 10:57:00 [facility]FF [facility] BASIC METABOLIC PANEL 2021-08-20 10:57:00 Ting Piesron [facility] HEPATIC FUNCTION PANEL 2021-08-20 10:57:00 Ting Pierson, [facility] MAGNESIUM LEVEL 2021-08-20 10:57:00 Alma Girard spital [place] PHOSPHORUS LEVEL 2021-08-20 10:57:00 Alma Girard ospital [facility] PROTHROMBIN TIME WITH INR 2021-08-20 10:57:00 [facility] ESTIMATED GFR 2021-08-20 10:57:00 Alma Girard spital [place] POC GLUCOSE 2021-08-20 02:42:00 Ting Alma Pierson spital [facility] POC GLUCOSE 2021-08-19 20:04:00 Alma Girard HC COMPLETE BLD COUNT 2021-08-19 11:38:00 Ting Pierson [facility] W/AUTO DIFF [facility] BASIC METABOLIC PANEL 2021-08-19 11:38:00 [facility] HE[facility] FUNCTION PANEL 2021-08-19 11:38:00 Ting Pierson [facility] MAGNESIUM LEVEL 2021-08-19 11:38:00 Alma Girardtal [place] PHOSPHORUS LEVEL 2021-08-19 11:38:00 Alma Girard ospimateo Self PROTHROMBIN TIME WITH INR 2021-08-19 11:38:00 Ting Pierson [facility] ESTIMATED GFR 2021-08-19 11:38:00 Alma Girard spital [place] POC GLUCOSE 2021-08-19 03:14:00 Alma Girard spital [place] POC GLUCOSE 2021-08-18 23:30:00 Alma Girard spital [place] POC GLUCOSE 2021-08-18 15:37:00 Alma Girard URINE CULTURE 2021-08-18 12:53:00 Alma Girard URINALYSIS SCREEN AND 2021-08-18 11:31:00 [facility] MICROSCOPY, WITH REFLEX TO [facility] CULTURE LACTIC ACID LEVEL, SEPSIS 2021-08-18 10:21:00 Orlando Balderrama [facility] - NOW AND REPEAT 2X EVERY 3 HOURS HC COMPLETE BLD COUNT 2021-08-18 10:21:00 [facility] W/AUTO DIFF [facility] BASIC METABOLIC PANEL 2021-08-18 10:21:00 [facility] HEPATIC FUNCTION PANEL 2021-08-18 10:21:00 [facility] MAGNESIUM LEVEL 2021-08-18 10:21:00 [facility] PHOSPHORUS LEVEL 2021-08-18 10:21:00 [facility] ospital [facility] PROTHROMBIN TIME WITH INR 2021-08-18 10:21:00 [facility] ESTIMATED GFR 2021-08-18 10:21:00 [facility] Alma Pierson [facility] LACTIC ACID LEVEL, SEPSIS 2021-08-18 07:56:00 Orlando Balderrama [facility] - NOW AND REPEAT 2X EVERY 3 HOURS BLOOD CULTURE, AEROBIC & 2021-08-18 05:00:00 [facility] ANAEROBIC [facility] ECG 12-LEAD 2021-08-18 04:24:58 Ji [facility] CT ABDOMEN PELVIS WO 2021-08-18 04:19:03 [facility] CONTR[facility] CT HEAD WO CONTRAST 2021-08-18 04:18:21 [facility] LACTIC ACID LEVEL, SEPSIS 2021-08-18 03:37:00 [facility] NOW AND REPEAT 2X EVERY 3 HOURS B NATRIURETIC PEPTIDE 2021-08-18 03:37:00 [facility] WITH INR 2021-08-18 03:20:00 [facility] AMMONIA LEVEL 2021-08-18 03:20:00 [facility] TROPONIN T 2021-08-18 03:20:00 [facility] XR CHEST 1 VW PORTABLE 2021-08-18 03:14:19 [facility] HC COMPLETE BLD COUNT 2021-08-18 03:03:00 [facility] W/AUTO DIFF COMPREHENSIVE METABOLIC 2021-08-18 03:03:00 [facility] PANEL ESTIMATED GFR 2021-08-18 03:03:00 [facility] RESPIRATORY PATHOGEN PANEL 2021-08-18 03:03:00 [facility] WITH COVID-19 RT-PCR ECG ED PRELIMINARY 2021-08-18 02:54:33 [facility] INTERPRETATION COVID-19 QUALITATIVE 2021-08-11 05:31:00 [facility] RT-PCR [facility] COMPREHENSIVE METABOLIC 2021-08-11 05:30:00 [facility] PANEL [facility] HC COMPLETE BLD COUNT 2021-08-11 05:30:00 [facility] W/AUTO DIFF [facility] LACTIC ACID, I-STAT 2021-08-11 05:30:00 [facility] ESTIMATED GFR 2021-08-11 05:30:00 [facility] ECG 12-LEAD 2021-08-11 05:15:35 [facility] URINALYSIS 2021-08-11 05:00:00 [facility] XR CHEST 1 VW PORTABLE 2021-08-11 04:27:00 [facility] LACTIC ACID, I-STAT 2021-06-28 22:37:00 Romero Limon [facility] URINALYSIS 2021-06-28 21:45:00 [facility] COMPLETE BLD COUNT 2021-06-28 20:01:00 Romero Limon [facility] W/AUTO DIFF PROTHROMBIN TIME WITH INR, 2021-06-28 20:01:00 Romero Limon [facility] I-STAT COMPREHENSIVE METABOLIC 2021-06-28 20:01:[address] [facility] PANEL LACTIC ACID, I-STAT 2021-06-28 20:01:00 Romero Limon [facility] SEDIMENTATION RATE 2021-06-28 20:01:00 Romero Limon [facility] ESTIMATED GFR 2021-06-28 20:01:00 [facility] QUALITATIVE 2021-06-28 20:01:00 Romero Limon [facility] RT-PCR BLOOD CULTURE, AEROBIC & 2021-06-28 20:01:00 Romero Limon [facility] ANAEROBIC HC COMPLETE BLD COUNT 2021-06-21 11:20:00 Dinakar [facility] W/AUTO DIFF [facility] BASIC METABOLIC PANEL 2021-06-21 11:20:00 Dinakar, [facility] HEPATIC FUNCTION PANEL 2021-06-21 11:20:00 Dinholleyr, [facility] MAGNESIUM LEVEL 2021-06-21 11:20:00 DinakarAmberh Amish Ho [facility] PROTHROMBIN TIME WITH INR 2021-06-21 11:20:00 Dinakar, [facility] PHOSPHORUS LEVEL 2021-06-21 11:20:00 Dinakar, [facility] Amish ospital [facility] ESTIMATED GFR 2021-06-21 11:20:00 Dinakar [facility] PHOSPHATIDYLETHANOL, BLOOD 2021-06-21 11:20:00 [facility] URINE DRUGS OF ABUSE 2021-06-21 10:11:[address] [facility] SCREEN URINALYSIS SCREEN AND 2021-06-21 10:10:00 [facility] MICROSCOPY, WITH REFLEX TO CULTURE URINE CULTURE 2021-06-21 10:10:00 [facility] COVID-19 SEROLOGY PATIENT 2021-06-20 17:52:00 Dinakar, [facility] SURVEILLANCE [facility] COVID-19 ANTI-SPIKE IGG 2021-06-20 17:52:00 Dinakar, [facility] ANTIBODY TITER [facility] HC COMPLETE BLD COUNT 2021-06-20 11:03:00 Dinakar, [facility] W/AUTO DIFF [facility] BASIC METABOLIC PANEL 2021-06-20 11:03:00 Dinakar, [facility] HEPATIC FUNCTION PANEL 2021-06-20 11:03:00 Dinakar, [facility] MAGNESIUM LEVEL 2021-06-20 11:03:00 Dinakar, Pierce lynn Blayne PROTHROMBIN TIME WITH INR 2021-06-20 11:03:00 Dinakar, [facility] PHOSPHORUS LEVEL 2021-06-20 11:03:00 DinholleyrPierce ospital [facility] ESTIMATED GFR 2021-06-20 11:03:00 DinPierce wallacera XR ABDOMEN 1 VW PORTABLE 2021-06-20 00:11:00 [facility] [facility] AMMONIA LEVEL 2021 11:27:00 Jennifer Ghosh HC COMPLETE BLD COUNT 2021 11:24:00 Jennifer Ghosh [facility] W/AUTO DIFF PROTHROMBIN TIME WITH INR 2021 11:24:00 Jennifer Ghosh [facility] COMPREHENSIVE METABOLIC 2021 11:24:[address] [facility] PANEL PHOSPHORUS LEVEL 2021 11:24:00 Jennifer Ghosh ospital MAGNESIUM LEVEL 2021 11:24:00 Jennifer Ghosh spimateo HEMOGLOBIN A1C 2021 11:24:00 Jennifer Ghosh spital THYROID STIMULATING 2021 11:24:00 [facility] HORMONE T4 2021 11:24:00 [facility] spital VITAMIN D 25 HYDROXY LEVEL 2021 11:24:00 [facility] ESTIMATED GFR 2021 11:24:00 Davina [facility] spital LACTIC ACID, I-STAT 2021 01:31:00 [facility] COVID-19 QUALITATIVE 2021 01:21:00 Willem Diana [facility] RT-PCR CLOSTRIDIUM DIFFICILE 2021 00:30:00 [facility] TOX[facility] ENTERIC BACTERIAL PANEL 2021 00:30[facility]00 [facility]:09[facility]OL[facility] 2021-06-18 22:51:00 [facility] PANEL AMYLASE LEVEL 2021-06-18 22:51:00 [facility] 2021-06-18 22:51:00 [facility] HC COMPLETE BLD COUNT 2021-06-18 21:51:00 Diana Bangura [facility] W/AUTO DIFF COMPREHENSIVE METABOLIC 2021-06-18 21:51:00 [facility] PANEL LACTIC ACID, I-STAT 2021-06-18 21:51:00 [facility] AMYLASE LEVEL 2021-06-18 21:51:00 [facility] 2021-06-18 21:51:00 [facility] AMMONIA LEVEL 2021-06-18 21:47:00 [facility] HC COMPLETE BLD COUNT 2021-06-02 09:45:00 [facility] W/AUTO DIFF PROTHROMBIN TIME WITH INR 2021-06-02 09:45:00 [facility] BASIC METABOLIC PANEL 2021-06-02 09:45:00 [facility] HEPATIC FUNCTION PANEL 2021-06-02 09:45:00 [facility] PHOSPHORUS LEVEL 2021-06-02 09:45:00 [facility] MAGNESIUM LEVEL 2021-06-02 09:45:00 [facility] ospital ESTIMATED GFR 2021-06-02 09:45:00 [facility] ospital US ABDOMINAL LIMITED 2021-06-01 21:06:20 Joana Ling [facility] VENIPUNC NEED PHYS 2021-06-01 14:32:45 Brian Linda [facility] SKILL,DX OR RX HC COMPLETE BLD COUNT 2021-06-01 10:30:00 [facility] W/AUTO DIFF PROTHROMBIN TIME WITH INR 2021-06-01 10:30:00 [facility] BASIC METABOLIC PANEL 2021-06-01 10:30:00 [facility] HEPATIC FUNCTION PANEL 2021-06-01 10:30:00 [facility] PHOSPHORUS LEVEL 2021-06-01 10:30:00 [facility] MAGNESIUM LEVEL 2021-06-01 10:30:00 [facility] ospital HEMOGLOBIN A1C 2021-06-01 10:30:00 [facility] ospital THYROID STIMULATING 2021-06-01 10:30:00 [facility] HORMONE T4 2021-06-01 10:30:00 [facility] ospital VITAMIN D 25 HYDROXY LEVEL 2021-06-01 10:30:00 [facility] ZINC LEVEL, SERUM 2021-06-01 10:30:00 [facility] ALPHA FETOPROTEIN 2021-06-01 10:30:00 [facility] AMMONIA LEVEL 2021-06-01 10:30:00 [facility] 2021-06-01 10:30:00 [facility] ospital PHOSPHATIDYLETHANOL, BLOOD 2021-06-01 10:30:00 [facility] URINE CULTURE 2021-06-01 02:48:00 [facility] ospital BLOOD CULTURE, AEROBIC & 2021-06-01 02:43:00 [facility] ANAEROBIC BLOOD CULTURE, AEROBIC & 2021-06-01 02:42:00 [facility] ANAEROBIC URINALYSIS SCREEN AND 2021-06-01 02:40:00 [facility] MICROSCOPY, WITH REFLEX TO CULTURE URINE DRUGS OF ABUSE 2021-06-01 02:40:00 [facility] SCREEN URIC ACID LEVEL 2021-06-01 02:38:00 [facility] ospital PROTHROMBIN TIME WITH INR 2021-06-01 02:38:00 [facility] PHOSPHORUS LEVEL 2021-06-01 02:38:00 [facility] PARTIAL THROMBOPLASTIN 2021-06-01 02:38:00 [facility] TIME (PTT) MAGNESIUM LEVEL 2021-06-01 02:38:00 [facility] HE[facility] FUNCTION PANEL 2021-06-01 02:38:00 [facility] LDH 2021-06-01 02:38:00 [facility] ospital LACTIC ACID LEVEL 2021-06-01 02:38:00 [facility] FIBRINOGEN 2021-06-01 02:38:00 [facility] ospital HC COMPLETE BLD COUNT 2021-06-01 02:38:00 [facility] W/AUTO DIFF BASIC METABOLIC PANEL 2021-06-01 02:38:00 [facility] AMMONIA LEVEL 2021-06-01 02:38:00 Heriberto York ospital ESTIMATED GFR 2021-06-01 02:38:00 Heriberto York ospital COVID-19 SEROLOGY PATIENT 2021-06-01 02:38:00 Heriberto York [facility] SURVEILLANCE COVID-19 ANTI-SPIKE IGG 2021-06-01 02:38:00 Heriberto York [facility] ANTIBODY TITER ECG 12-LEAD 2021-06-01 01:06:10 Heriberto York ospital XR ABDOMEN 1 VW PORTABLE 2021-06-01 01:06:00 Heriberto York [facility] XR CHEST 1 VW PORTABLE 2021-06-01 01:02:[address] [facility] COVID-19 QUALITATIVE 2021-06-01 00:37:00 Heriberto York [facility] RT-PCR HC COMPLETE BLD COUNT 2021-05-27 10:09:00 [facility] BASIC METABOLIC PANEL 2021-05-27 10:09:00 [facility] HEPATIC FUNCTION PANEL 2021-05-27 10:09:00 [facility] MAGNESIUM LEVEL 2021-05-27 10:09:00 Alma Girard [facility] PHOSPHORUS LEVEL 2021-05-27 10:09:00 Alma Girard ospimateo Self PROTHROMBIN TIME WITH INR 2021-05-27 10:09:00 [facility]FR 2021-05-27 10:09:00 Alma Girard VENOUS BLOOD GAS 2021-05-26 23:37:00 Nia Faustin [facility] COMPLETE BLD COUNT 2021-05-26 09:02:00 [facility] W/AUTO DIFF [facility] PROTHROMBIN TIME WITH INR 2021-05-26 09:02:00 [facility] COVID-19 SEROLOGY PATIENT 2021-05-26 09:02:00 Abe Partida [facility] SURVEILLANCE Tom SMEAR REVIEW 2021-05-26 09:02:00 Alma Girard PHOSPHATIDYLETHANOL, BLOOD 2021-05-26 09:02:00 Palak Mayorga [facility] COVID-19 ANTI-SPIKE IGG 2021-05-26 09:02:[address] [facility] ANTIBODY TITER Tom BASIC METABOLIC PANEL 2021-05-26 09:00:00 [facility]EL 2021-05-26 09:00:00 [facility] MAGNESIUM LEVEL 2021-05-26 09:00:00 Alma Girard PHOSPHORUS LEVEL 2021-05-26 09:00:00 Alma Girard ospimateo Self ALPHA FETOPROTEIN 2021-05-26 09:00:00 Mukesh [facility] ZINC LEVEL, SERUM 2021-05-26 09:00:00 Mukesh [facility] ESTIMATED GFR 2021-05-26 09:00:00 Alma Girard URINALYSIS SCREEN AND 2021-05-25 23:41:00 [facility] MICROSCOPY, WITH REFLEX TO [place] CULTURE URINE DRUGS OF ABUSE 2021-05-25 23:41:00 [facility] SCREEN [place] URINE CULTURE 2021-05-25 23:41:00 Alma Girard US HEPATIC 2021-05-25 20:43:26 Alma Girard US ABDOMINAL DOPPLER 2021-05-25 20:40:00 [facility] [place] HC COMPLETE BLD COUNT 2021-05-25 18:10:00 [facility]FF [place] SMEAR REVIEW 2021-05-25 18:10:00 Alma Girard [facility] NEED PHYS 2021-05-25 15:59:39 Tristin Hunt [facility] SKILL,DX OR RX CBC WITH PLATELET AND 2021-05-25 13:57:00 [facility] DIFFERENTIAL [place] COMPREHENSIVE METABOLIC 2021-05-25 13:57:00 [facility] PANEL [place] ESTIMATED GFR 2021-05-25 13:57:00 Alma Girard [place] LACTIC ACID, I-STAT 2021-05-25 00:58:00 Romero Limon [facility] COVID-19 QUALITATIVE 2021-05-25 00:00:00 Romero Limon [facility] RT-PCR CT ABDOMEN PELVIS WO 2021-05-24 23:16:57 Romero Limon [facility] CONTRAST URINALYSIS 2021-05-24 22:19:00 Romero Limon HC COMPLETE BLD COUNT 2021-05-24 22:13:00 Romero Limon [facility] W/AUTO DIFF COMPREHENSIVE METABOLIC 2021-05-24 22:13:[address] [facility] PANEL AMYLASE LEVEL 2021-05-24 22:13:00 Romero Limon LACTIC ACID, I-STAT 2021-05-24 22:13:00 Romero Limon [facility] ESTIMATED GFR 2021-05-24 22:13:00 Romero Limon BLOOD CULTURE, AEROBIC & 2021-05-24 22:00:00 Romero Limon [facility] ANAEROBIC CBC HEMOGRAM 2020-11-23 05:55:00 Alma Girard PROTHROMBIN TIME WITH INR 2020-11-23 05:55:00 [facility] COMPREHENSIVE METABOLIC 2020-11-23 05:55:00 [facility] PANEL [place] ESTIMATED GFR 2020-11-23 05:55:00 Alma Girard [place] COVID-19 QUALITATIVE 2020-11-23 01:57:00 [facility] RT-PCR [place] LACTIC ACID, I-STAT 2020-11-23 01:40:00 Romero Limon [facility] CT HEAD WO CONTRAST 2020-11-22 23:20:00 Romero Limon [facility] HC COMPLETE BLD COUNT 2020-11-22 22:53:00 Romero Limon [facility] W/AUTO DIFF COMPREHENSIVE METABOLIC 2020-11-22 22:53:[address] [facility] PANEL LACTIC ACID, I-STAT 2020-11-22 22:53:00 Romero Limon [facility] AMMONIA LEVEL 2020-11-22 22:53:00 Romero Limon spital VENOUS BLOOD GAS 2020-11-22 22:53:00 Romero Limon ospital ESTIMATED GFR 2020-11-22 22:53:00 [facility] X[facility] ABDOMEN ACUTE INC CHEST 2020-11-02 22:51:00 [facility] EST[facility] GFR 2020-11-02 21:55:00 [facility] HC COMPLETE BLD COUNT 2020-11-02 21:55:00 [facility] W/AUTO DIFF COMPREHENSIVE METABOLIC 2020-11-02 21:55:00 [facility] PANEL PROTHROMBIN TIME WITH INR 2020-11-02 21:55:00 [facility] COVID-19 QUALITATIVE 2020-11-02 21:05:00 [facility] RT-PCR NM BRAIN SPECT W I 123 2020-10-26 19:02:00 Cliff Levy [facility] DATSCAN HC COMPLETE BLD COUNT 2020-10-24 10:15:00 [facility] W/AUTO DIFF BASIC METABOLIC PANEL 2020-10-24 10:15:00 [facility] HEPATIC FUNCTION PANEL 2020-10-24 10:15:00 [facility] MAGNESIUM LEVEL 2020-10-24 10:15:00 [facility] ospital PHOSPHORUS LEVEL 2020-10-24 10:15:00 [facility] PROTHROMBIN TIME WITH INR 2020-10-24 10:15:00 [facility] HEMOGLOBIN A1C 2020-10-24 10:15:00 [facility] ospital THYROID STIMULATING 2020-10-24 10:15:00 [facility] HORMONE T4 2020-10-24 10:15:00 [facility] ospital VITAMIN D 25 HYDROXY LEVEL 2020-10-24 10:15:00 [facility] ZINC LEVEL, SERUM 2020-10-24 10:15:00 [facility] ALPHA FETOPROTEIN 2020-10-24 10:15:00 [facility] ESTIMATED GFR 2020-10-24 10:15:00 [facility] ospital URINE DRUGS OF ABUSE 2020-10-24 10:00:00 [facility] SCREEN LACTIC ACID LEVEL, SEPSIS 2020-10-24 06:20:00 [facility] - NOW AND REPEAT 2X EVERY 3 HOURS LACTIC ACID LEVEL, SEPSIS 2020-10-24 02:25:00 [facility] - NOW AND REPEAT 2X EVERY 3 HOURS XR CHEST 1 VW PORTABLE 2020-10-24 00:08:00 Rehrer, [facility] BLOOD CULTURE, AEROBIC & 2020-10-23 23:31:00 Rehrer, [facility] ANAEROBIC RESPIRATORY PATHOGEN PANEL 2020-10-23 23:31:00 Rehrer, [facility] WITH COVID-19 RT-PCR COMPREHENSIVE METABOLIC 2020-10-23 23:31:00 Rehrer, [facility] PANEL PHOSPHORUS LEVEL 2020-10-23 23:31:00 [facility]EL 2020-10-23 23:31:00 Rehrer, [facility] LACTIC ACID LEVEL, SEPSIS 2020-10-23 23:31:00 [facility] - NOW AND REPEAT 2X EVERY 3 HOURS LIPASE LEVEL 2020-10-23 23:31:00 Rehrer, [facility] ESTIMATED GFR 2020-10-23 23:31:00 Rehrer, [facility] HC COMPLETE BLD COUNT 2020-10-23 23:20:00 Rehrer, [facility] W/AUTO DIFF PROTHROMBIN TIME WITH INR 2020-10-23 23:20:00 Rehrer, [facility] PARTIAL THROMBOPLASTIN 2020-10-23 23:20:00 Rehrer, [facility] TIME (PTT) AMMONIA LEVEL 2020-10-23 23:20:00 Rehrer, [facility] HC COMPLETE BLD COUNT 2020-10-10 00:05:00 [facility] W/AUTO DIFF COMPREHENSIVE METABOLIC 2020-10-10 00:05:00 [facility] PANEL LACTIC ACID, I-STAT 2020-10-10 00:05:00 [facility] AMMONIA LEVEL 2020-10-10 00:05:00 [facility] ESTIMATED GFR 2020-10-10 00:05:00 [facility] URINALYSIS 2020-10-09 23:32:00 [facility] ECG 12-LEAD 2020-10-09 23:18:11 [facility] HC COMPLETE BLD COUNT 2020-09-21 10:28:00 [facility] W/AUTO DIFF BASIC METABOLIC PANEL 2020-09-21 10:28:00 [facility] HEPATIC FUNCTION PANEL 2020-09-21 10:28:00 [facility] MAGNESIUM LEVEL 2020-09-21 10:28:00 [facility] ospital PHOSPHORUS LEVEL 2020-09-21 10:28:00 [facility] PROTHROMBIN TIME WITH INR 2020-09-21 10:28:00 [facility] MISCELLANEOUS REFERRAL 2020-09-21 10:28:00 Annette Mayorga [facility] TEST VITAMIN B12 LEVEL 2020-09-21 10:28:00 [facility] FOLATE LEVEL 2020-09-21 10:28:00 [facility] ospital ESTIMATED GFR 2020-09-21 10:28:00 [facility] ospital COVID-19 QUALITATIVE 2020-09-20 20:51:00 MckenzieRobby [facility] RT-PCR Gabriel HC COMPLETE BLD COUNT 2020-09-20 12:08:00 [facility] W/AUTO DIFF BASIC METABOLIC PANEL 2020-09-20 12:08:00 [facility] HEPATIC FUNCTION PANEL 2020-09-20 12:08:00 [facility] MAGNESIUM LEVEL 2020-09-20 12:08:00 [facility] ospital PHOSPHORUS LEVEL 2020-09-20 12:08:00 [facility] PROTHROMBIN TIME WITH INR 2020-09-20 12:08:00 [facility] HEMOGLOBIN A1C 2020-09-20 12:08:00 [facility] ospital THYROID STIMULATING 2020-09-20 12:08:00 [facility] HORMONE T4 2020-09-20 12:08:00 [facility] ospital VITAMIN D 25 HYDROXY LEVEL 2020-09-20 12:08:00 [facility] ZINC LEVEL, SERUM 2020-09-20 12:08:00 [facility] ALPHA FETOPROTEIN 2020-09-20 12:08:00 Chela Heriberto [facility] ESTIMATED GFR 2020-09-20 12:08:00 Chela [facility] ospital CT CERVICAL SPINE WO 2020-09-20 06:50:26 [facility] PELVIS WO CONTRAST 2020-09-20 06:50:16 [facility] 2020-09-20 06:50:07 [facility] [facility] 2020-09-20 04:05:41 [facility] Renee URINE CULTURE 2020-09-20 04:00:00 Bonny Rod spital R[place]e URINALYSIS SCREEN AND 2020-09-20 04:00:00 Marcel [facility] MICROSCOPY, WITH REFLEX TO Renee CULTURE URINE DRUGS OF ABUSE 2020-09-20 04:00:00 Bonny Rod [facility] SCREEN Renee MAGNESIUM LEVEL 2020-09-20 04:00:00 Bonny Rod Ho spital [place]e TROPONIN 2020-09-20 04:00:00 Bonny Rod spital R[place]e XR KNEE 3 VW LEFT 2020-09-20 02:06:29 Marcel [facility] Renee XR KNEE 3 VW RIGHT 2020-09-20 02:06:09 Marcel [facility] [place] XR SHOULDER 2+ VW RIGHT 2020-09-20 02:05:46 Bonny Rod [facility] HC COMPLETE BLD COUNT 2020-09-20 02:05:00 Marcel [facility] W/AUTO DIFF Renee PROTHROMBIN TIME WITH INR 2020-09-20 02:05:00 Bonny Rod [facility] PARTIAL THROMBOPLASTIN 2020-09-20 02:05:00 [facility] ([facility] R[place]e COMPREHENSIVE METABOLIC 2020-09-20 02:05:00 Bonny Rod [facility] PANEL Renee TROPONIN 2020-09-20 02:05:00 [facility] B NATRIURETIC PEPTIDE 2020-09-20 02:05:00 Bonny Rod [facility] AMMONIA LEVEL 2020-09-20 02:05:00 Bonny Rod shane Duran ALCOHOL LEVEL, BLOOD 2020-09-20 02:05:00 Bonny Rod [facility] ESTIMATED GFR 2020-09-20 02:05:00 [facility] Plan of Care Planned Activity Planned Date Details Comments Source Future Scheduled 2024-08-[address] [facility]00 (procedure) [code = [facility] 63029767] Future Scheduled 2024-08-[address] [facility] 00:00:00 (procedure) [code = [facility] [id number]] Future Scheduled 2024-08-[address] [facility]:00:00 (procedure) [code [facility] [id number]] Future Scheduled 2024-08-[address] [facility] 00:00:00 (procedure) [code = [facility] [id number]] Future Scheduled 2024-08-[address] [facility] 00:00:00 (procedure) [code = [facility] [id number]] Future Scheduled 2023-04-[address] [facility] 00:00:00 (Season Ended) [code = [facility] Center INFLUENZA VACCINE (Season Ended)] Future Scheduled 2023-04-[address] [facility] 00:00:00 (Season Ended) [code = Medic al Center INFLUENZA VACCINE (Season Ended)] Future Scheduled 2022-08-[address] [facility] 00:00:00 (12+) [code = Medical Center DEPRESSION SCREENING (12+)] Future Scheduled 2022-08-[address] [facility] 00:00:00 (12+) [code = Medical Center DEPRESSION SCREENING (12+)] Future Scheduled 2022-04-12 INFLUENZA VACCINE (#1) C [...] VACCINE (#1)] Future Scheduled 2021-09-12 [facility] 12:13[facility]11 [code = COLONOSCOPY SCREENING] Future Scheduled 2021-09-12 [facility]INES (#[facility] 12:13:11 [code = SHINGLES VACCINES (#1)] Future Scheduled 2021-09-12 BRE[facility] 12:13:11 SCREENING [code = BREAST CANCER SCREENING] Future Scheduled 2021-09-12 COVID-19 VACCINE (2 - [facility] 12:13:11 Booster for Yanira series) [code = COVID-19 VACCINE (2 - Booster for Yanira series)] Future Scheduled 2021-09-12 [facility] 12:13:11 [code = INFLUENZA VACCINE] Future Scheduled 2021-09-12 [facility] 12:13:11 malignant neoplasm of cervix (procedure) [code = 012003345] Future Scheduled 2021-08-[address] [...] Test 00:00:00 (procedure) [code = Medical Center 77088133] Future Scheduled [address] [facility] cervix (procedure) [code = 823616331] Future Scheduled [address] [facility] 00:00:00 [facility] cervix (procedure) [code = 355178851] Future Scheduled [address] [facility] 00:00:00 [facility] cervix (procedure) [code = 938778031] Future Scheduled [address] [facility] 00:00:00 malignant [facility] cervix (procedure) [code = 106594957] Future Scheduled [address] [facility] 00:00:00 malignant [facility] cervix (procedure) [code = 878437867] Future Scheduled [address] [facility] 00:00:00 malignant [facility] cervix (procedure) [code = 484369296] Future Scheduled 1980 DTAP/TDAP/TD VACCINES CH I [...] VACCINES (1 - Tdap)] Future Scheduled [address] [facility] 00:00:00 Counseling and Medical Cent[facility] r Screening (12+) [code = Tobacco Cessation Counseling and Screening (12+)] Future Scheduled 1973 COVID-19 VACCINE (1) [facility] [...] Med[facility] l Center breast (procedure) [code = 361348831] Future Scheduled [address] [facility] 00:00:00 (combo) [code = CT Medical C enter Colonography (combo)] Future Scheduled [address] [facility] 00:00:00 malignant ne[facility] of [facility] colon (procedure) [code = 847349294] Future Scheduled [address] [facility] 00:00:00 [facility] colon (procedure) [code = 011470531] Future Scheduled [address] [facility] 00:00:00 malignant [facility] of [facility] colon (procedure) [code = 208343927] Future Scheduled [address] [facility] 00:00:00 malignant [facility] colon (procedure) [code = 695713714] Future Scheduled 1961 Sigmoidoscopy [facility] [address] [facility] 00:00:00 malignant neoplasm of [facility] Center breast (procedure) [code = 273131340] Future Scheduled [address] [facility] 00:00:00 malignant neoplasm of [facility] Center colon (procedure) [code = 610456600] Future Scheduled [address] [facility] 00:00:00 malignant [facility] breast (procedure) [code = 672574984] Future Scheduled [address] [facility] 00:00:00 (combo) [code = CT Medical C enter Colonography (combo)] Future Scheduled [address] [facility] 00:00:00 malignant [facility] Center colon (procedure) [code = 196145820] Future Scheduled [address] [facility] 00:00:00 malignant [facility] colon (procedure) [code = 431728219] Future Scheduled [address] [facility] 00:00:00 malignant [facility] of [facility] Center colon (procedure) [code = 399537170] Future Scheduled [address] [facility] 00:00:00 malignant [facility] colon (procedure) [code = 148922810] Future Scheduled 1961 Sigmoidoscopy [facility] Medical Cent[facility] r Future Scheduled [address] [facility] 00:00:00 malignant neoplasm of [facility] Center breast (procedure) [code = 293274977] Future Scheduled [address] [facility] 00:00:00 (combo) [code = CT Medical C enter Colonography (combo)] Future Scheduled [address] [facility] 00:00:00 malignant [facility]oplasm of [facility] Center colon (procedure) [code = 967488696] Future Scheduled [address] [facility] 00:00:00 malignant [facility] of [facility] Center colon (procedure) [code = 440530420] Future Scheduled [address] [facility] 00:00:00 malignant [facility] of [facility] Center colon (procedure) [code = 682734200] Future Scheduled [address] [facility] 00:00:00 malignant neoplasm of [facility]ica [facility] Center colon (procedure) [code = 892776626] Future Scheduled 1961 Sigmoidoscopy [facility] S[facility]] Medical Cente r Future Scheduled [address] [facility] breast (procedure) [code = 293090564] Future Scheduled [address] [facility] 00:00:00 (combo) [code = CT Medical C enter Colonography (combo)] Future Scheduled [address] [facility] 00:[facility]00 [facility] colon (procedure) [code = 409336770] Future Scheduled [address] [facility] 00:[facility]:00 [facility] colon (procedure) [code = 393287847] Future Scheduled [address] [facility] 00:[facility]:00 [facility] colon (procedure) [code = 394928626] Future Scheduled [address] [facility] 00:[facility]:00 [facility] colon (procedure) [code = 600132278] Future Scheduled 1961 Sigmoidoscopy [facility]code [facility] Medical Cente r Future Scheduled [address] [facility] 00:[facility]:00 malignant [facility] breast (procedure) [code = 119123724] Future Scheduled [address] [facility] 00:00:00 (combo) [code = CT Medical C enter Colonography (combo)] Future Scheduled [address] [facility] 00:[facility]:00 malignant [facility] colon (procedure) [code = 833545583] Future Scheduled [address] [facility] 00:00:00 malignant [facility] colon (procedure) [code = 926695664] Future Scheduled [address] [facility] 00:[facility]:00 malignant [facility] colon (procedure) [code = 253925377] Future Scheduled [address] [facility] 00:00:00 malignant [facility] colon (procedure) [code = 713903807] Future Scheduled 1961 Sigmoidoscopy [facility]code [facility]oscopy] Medical Cente r Encounters Start End Encounter Admission Attending Care Care Encounter Source Date/Time Date/Time Type Type Clinicians Facility Department ID 2022-04-27 [facility] [id number] Common 10:06:00 Fernando [facility] 2022-03-26 Outpatient ER [facility] Internal [id number] 11:28:10 [facility] 2022-03-22 Outpatient Man, [facility] [id number] Common 08:23:00 Fernando [id number] [facility] 2021-09-06 Outpatient Man, [facility] [id number] Common 13:49:19 Fernando [id number] [facility] 2021-09-06 Outpatient Man, [facility] [id number] Common 13:45:16 Fernando [id number] [facility] 2021-09-06 Outpatient Man, [facility] [id number] Common 12:49:41 Fernando [id number] [facility] 2021-09-06 Outpatient Man, [facility] [id number] Common 12:05:14 Fernando [id number] [facility] 2021-09-06 Outpatient Man, STLMLC STLC [id number] Common 12:03:44 Fernando [id number] [facility] 2021-09-06 Outpatient Man, STLMLC STLC [id number] Common 11:42:32 Fernando [id number] [facility] 2021-09-06 Outpatient [facility] [id number] Common 11:33:04 Fernando [id number] [facility] 2022-12-20 2022-12-20 Outpatient SAHARIA, [facility] [id number] [place] 00:00:00 00:00:00 PEDRO [address] 2022-12-20 2022-12-20 Outpatient BAMBI, [facility] [id number] [place] 00:00:00 00:00:00 RAY [address] 2022-12-20 2022-12-20 Outpatient BAMBI, [facility] [id number] [place] 00:00:00 00:00:00 RAFIK 416 Method i 2022-12-20 2022-12-20 Outpatient GALATI, [facility] [id number] [place] 00:00:00 00:00:00 CALOS 400 Method i 2022-12-17 2022-12-17 Emergency NUSZEN, [facility] [id number] [place] 00:00:00 00:00:00 ROMERO 152 Method i 2022-11-27 2022-11-27 Outpatient HAWK, [facility] [id number] [place] 00:00:00 00:00:00 DAKSHA 745 Method i 2022-11-22 2022-11-22 Outpatient BAMBI, [facility] [id number] [place] 00:00:00 00:00:00 RAFIK 159 Method i 2022-11-15 2022-11-15 Outpatient RENÉ, [facility] [id number] [place] 00:00:00 00:00:00 COLIN 378 Method i 2022-11-08 2022-11-08 Outpatient SAHARIA, [facility] [id number] [place] 00:00:00 00:00:00 PEDRO 556 Method i 2022-11-08 2022-11-08 Outpatient SAHARIA, [facility] [id number] [place] 00:00:00 00:00:00 PEDRO 153 Method i 2022-11-08 2022-11-08 Outpatient [facility] [id number] [place] 00:00:00 00:00:00 233 Method i 2022-11-07 2022-11-07 Emergency [facility] [id number] Univers 12:40:00 13:55:00 MARTELL tatum [facility] 2022-11-07 2022-11-07 Emergency [facility] 1.2.445.138 [id number] Univers 12:40:00 13:55:00 Martell PORRAS 350.1.13.10 maverick polk [place] 4.2.7.2.686 [facility] [phone] [address] 2022-10-22 2022-10-22 Outpatient BAMBI, [facility] [id number] [place] 00:00:00 00:00:00 RAFIK 146 Method i 2022-10-22 2022-10-22 Outpatient [facility] [id number] [place] 00:00:00 00:00:00 350 Method i 2022-10-18 2022-10-18 Outpatient BAMBI, [facility] [id number] [place] 00:00:00 00:00:00 RAFIK 695 Method i 2022-10-18 2022-10-18 Outpatient [facility] [id number] [place] 00:00:00 00:00:00 509 Method i 2022-10-18 2022-10-18 Outpatient BAMBI, [facility] [id number] [place] 00:00:00 00:00:00 RAFIK 694 Method i 2022-10-15 2022-10-15 Outpatient DEL CID, [facility] [id number] [place] 00:00:00 00:00:00 DAVE 693 Method i 2022-09-27 2022-10-11 Inpatient BAYRON, [facility] 019 [id number] [place] 00:00:00 00:00:00 DARA 859 Method i 2022-10-08 2022-10-08 Inpatient DIVATIA, [facility] [id number] [place] 00:00:00 00:00:00 DARIN 081 Method i 2022-07-16 2022-09-27 Inpatient SAHARIA, [facility] [id number] [place] 00:00:00 00:00:00 PEDRO 884 Method i 2022-07-02 2022-07-02 Outpatient SFA SFA [id number] [place] 14:37:57 14:37:57 91493 F Teachey 2022-06-15 2022-06-26 Inpatient TING [facility] 019 [id number] [place] 00:00:00 00:00:00 PIERSON, 407 Method i BAYLEE 2022-03-26 2022-06-15 Inpatient YORK, [facility] [id number] [id number] [place] 00:00:00 00:00:00 HERIBERTO 401 Method i 2022-02-17 2022-02-23 Inpatient DINAKAR, [facility] [id number] [place] 00:00:00 00:00:00 PIERCE [address] 2022-02-09 2022-02-09 Outpatient [facility] [id number] Univers 15:00:00 15:00:00 SALLY jessica [facility] 2022-02-09 2022-02-09 Outpatient Christiana AGUDELO [facility] [id number] Univers 15:00:00 15:00:00 [facility] 2022-[facility]-08 2022-02-08 Orders Doctor KIRIT 1.2.840.114 [id number] Univers 00:00:00 00:00:00 Only Unassigned, MICHAEL 350.1.13.10 ity of [facility] 4.2.7.2.686 Brent as [phone] [address] 2022-01-30 2022-01-30 Telephone Dashawn [facility] 1.2.840.114 [id number] [facility] 00:00:00 00:00:00 [facility] 350.1.13.10 it y of Ricki [place] 4.2.7.2.686 Brent as VAMSI?BLEA [phone] [address] MEDICAL OFFICE BUILDING 2022-01-23 2022-01-23 Lab [facility] [id number] [facility] 00:00:00 00:00:00 Requisitio [facility] 2022-01-23 2022-01-23 Lab [facility] [id number] [facility] 00:00:00 00:00:00 Requisitio [facility] 2022-01-10 2022-01-10 Outpatient GALATI, [facility] [id number] [place] 00:00:00 00:00:00 CALOS [address] [facility] 2022-01-10 2022-01-10 [facility] [id number] [place] 00:00:00 00:00:00 CALOS Sotelo [facility] 2021-11-30 2021-11-30 (TEL) STLMLC STLC [id number] Co mmon 00:00:00 00:00:00 Spirit [facility] 2021-11-16 2021-11-16 Office [facility] 1.2.194.096 [id number] Univers 13:30:00 14:32:33 Visit Libby VERN 350.1.13.10 i ty of [place] [phone] In dical NAL 134 [facility] 2021-11-16 2021-11-16 Outpatient R [facility] [id number] Univers 13:30:00 14:32:33 [facility] 2021-11-16 2021-11-16 Outpatient R [facility] [id number] Univers 13:30:00 13:30:00 [facility] 2021-11-16 2021-11-16 Outpatient R [facility] [id number] Univers 13:30:00 13:30:00 [facility] 2021-11-10 2021-11-10 Office [facility] 1.2.840.114 [id number] Univers 16:30:00 16:30:00 Visit Sally VERN 350.1.13.10 i ty [place] [phone] [facility] 098 [facility] 2021-11-10 2021-11-10 Outpatient R [facility] [id number] Univers 16:30:00 13:58:19 [facility] 2021-10-27 2021-11-04 Inpatient [facility] [id number] [place] 00:00:00 00:00:00 Ava PIERSON i [facility] 2021-10-16 2021-10-16 [facility] [id number] Common 00:00:00 00:00:00 [facility] Follow Up - [facility] 2021-10-13 2021-10-13 (TEL) [facility] [id number] Co mmon 00:00:00 00:00:00 Spirit - [facility] 2021-10-03 2021-10-03 [place] [facility] [id number] 00:00:00 00:00:00 Kendy Located Within [facility] 2021-10-02 2021-10-02 Outpatient R JAMMIE [facility] [id number] Univers 15:30:00 16:50:13 [facility] 2021-10-02 2021-10-02 Outpatient R [facility] [id number] Univers 15:30:00 15:30:00 [facility] 2021-09-27 2021-09-27 Outpatient R [facility] [id number] Univers 13:45:00 15:38:26 [facility] 2021-09-27 2021-09-27 [facility] 1.2.164.181 [id number] Univers 13:45:00 15:38:26 Visit Libby PORRAS 350.1.13.10 i [facility] [place] [phone] In dical [address] 2021-09-27 2021-09-27 Outpatient R [facility] [id number] Univers 13:45:00 15:38:26 [facility] 2021-09-27 2021-09-27 Orders Doctor KIRIT 1.2.840.114 [id number] Univers 00:00:00 00:00:00 Only Unassigned, MICHAEL 350.1.13.10 ity of [place] [facility] 4.2.7.2.686 Brent as [phone] [address] 2021-09-25 2021-09-25 OFFICE [facility] [id number] Co mmon 00:00:00 00:00:00 VISIT Gilberto ESTAB PT - CHI LEVEL 4 [facility] 2021-09-01 2021-09-16 Hospital RADHA TuckerheydiDawna [facility] [id number] 22:15:00 12:13:00 Encounter Zara Mason [facility] Shiela Zabala [facility]note 3] RafaelKendyNia 2021-09-01 2021-09-16 Inpatient ER RAFAEL, [facility] Gastro [id number] [facility] 22:15:00 12:13:00 KENDY 2021-09-04 2021-09-04 (TEL) [facility] [id number] Co mmon 00:00:00 00:00:00 Spirit - [facility] 2021-09-01 2021-09-01 Documentat Silvio, [facility] [id number] [facility] 00:00:00 00:00:00 ion [facility] 2021-09-01 2021-09-01 Telephone Cristofer, 1.2.840.1 [id number] Methodi 00:00:00 00:00:[address] [place] Matthew 3.430.2.7 Hospit a .3.966464 l .8 2021-08-30 2021-08-31 Emergency ADALI, [facility] 064 [id number] [place] 00:00:00 00:00:00 MOISES [address] 2021-08-30 2021-08-30 Travel 1.2.840.1 1.2.567.130 5806 [id number] Methodi 00:00:00 00:00:[address] 3.430.2.7 0.2.7.3.698 spita .3.270783 084.8 l .8 2021-08-29 2021-08-29 Outpatient Christiana LEVY [facility] [id number] [facility] 13:00:00 13:00:00 LIBBY tatum [facility] 2021-08-29 2021-08-29 Outpatient JOSE, [facility] [id number] 073 [place] 00:00:00 00:00:00 CALOS [address] 2021-08-29 2021-08-29 Travel 1.2.840.1 1.2.292.478 0894 [id number] Methodi 00:00:00 00:00:[address] 3.430.2.7 0.2.7.3.698 Ho spita .3.266223 084.8 l .8 2021-08-25 2021-08-25 Travel 1.2.840.1 1.2.295.534 0208 701795 Methodi 00:00:00 00:00:[address] 3.430.2.7 0.2.7.3.698 Ho spita .3.686832 084.8 l .8 2021-08-17 2021-08-25 [facility] JENNIFER GHOSH 1.2.840.1 [id number] [place] 00:00:00 00:00:00 Encounter 56123.1.1 [address] .3.633265 .8 2021-08-24 2021-08-24 Surgery [facility], 1.2.840.1 [id number] 13625 76586 Methodi 09:00:00 10:25:[address] 3.430.2.7 Hospit a .3.514236 l .8 2021-08-24 2021-08-24 Documentat [facility], 1.2.840.1 [id number] 21 [id number] Methodi 00:00:00 00:00:[place] [address] Matthew 3.430.2.7 Hospit a .3.741439 l .8 2021-08-23 2021-08-23 [facility] 1.2.840.1 [id number] 21 [id number] Methodi 00:00:00 00:00:[place] [address] Matthew 3.430.2.7 Hospit a .3.460114 l .8 2021-08-21 2021-08-21 [facility], 1.2.840.1 [id number] 464 [id number] Methodi 12:37:39 13:37:39 Work Kirit 76738.1.[address] 3.430.2.7 Hospit a .3.571341 l .8 2021-08-21 2021-08-21 Documentat Cristofer, 1.2.840.1 [id number] 21 [id number] Methodi 00:00:00 00:00:[place] [address] Matthew 3.430.2.7 Hospit a .3.994592 l .8 2021-08-21 2021-08-21 Telephone Pops, 1.2.840.1 [id number] 2[address] 698148 Methodi 00:00:00 00:00:[address] 3.430.2.7 Hospit a .3.478883 l .8 2021-08-18 2021-08-18 Travel 1.2.840.1 1.2.569.729 5794 415336 Methodi 00:00:00 00:00:[address] 3.430.2.7 0.2.7.3.698 Ho spita .3.963197 084.8 l .8 2021-08-10 2021-08-11 Emergency Adali, 1.2.840.1 [id number] 2 [id number] Methodi 20:25:00 01:30:[address] Rylee 3.430.2.7 Ho spita .3.985025 l .8 2021-08-10 2021-08-10 Travel 1.2.840.1 1.2.969.770 7216 779005 Methodi 00:00:00 00:00:[address] 3.430.2.7 0.2.7.3.698 Ho spita .3.324867 084.8 l .8 2021-07-28 2021-07-28 (TEL) STLMLC STLMLC [id number] Co mmon 00:00:00 00:00:00 [facility] 2021-07-25 2021-07-25 Telephone Stephanie, 1.2.840.1 [id number] 231 [id number] Methodi 00:00:00 00:00:[address] 3.430.2.7 Hospit a .3.125404 l .8 2021-07-24 2021-07-24 Telephone Pops, 1.2.840.1 [id number] 2099 998479 Methodi 00:00:00 00:00:[address] 3.430.2.7 Hospit a .3.115381 l .8 2021-07-12 2021-07-12 (TEL) STLMLC STLC [id number] Co mmon 00:00:00 00:00:00 [facility] 2021-06-29 2021-06-29 Travel 1.2.840.1 1.2.817.429 9376 120636 Methodi 00:00:00 00:00:[address] 3.430.2.7 0.2.7.3.698 spita .3.811018 084.8 l .8 2021-06-28 2021-06-28 Emergency NUSZEN, [facility] 064 [id number] 37 [place] 00:00:00 00:00:00 ROMERO [address] 2021-06-22 2021-06-22 Behavioral John, 1.2.840.1 [id number] 626 [id number] Methodi 00:00:00 00:00:00 Health Kalbe 74072.1.[address] Johnny 3.430.2.7 Hospit a .3.391547 l .8 2021-06-18 2021-06-21 [facility], 1.2.840.1 [id number] 2100 [id number] [place] 00:00:00 00:00:00 Encounter PIERCE 65485.1.1 [address] .3.066241 .8 2021-06-18 2021-06-18 Travel 1.2.840.1 1.2.522.683 0268 549699 Methodi 00:00:00 00:00:[address] 3.430.2.7 0.2.7.3.698 Ho spita .3.837627 084.8 l .8 2021-06-16 2021-06-16 Orders Teri, 1.2.840.3 [id number] 21 [id number] Methodi 00:00:00 00:00:00 Only Eusebia Maya 20127.1.[address] 3.430.2.7 Hospit a .3.907771 l .8 2021-06-08 2021-06-08 Clinical 1.2.840.1 [id number] 74 Methodi 12:04:06 13:04:[address] 3.430.2.7 Hospit a .3.774336 l .8 2021-06-05 2021-06-05 Telephone [facility], 1.2.840.1 [id number] 2099480 Methodi 00:00:00 00:00:[address] Johnny 3.430.2.7 Hospit a .3.658582 l .8 2021-05-31 2021-06-02 [facility], 1.2.840.1 [id number] 045 [id number] [place] 00:00:00 00:00:00 Encounter HERIBERTO 65079.1.[address] .3.925524 .8 2021-05-31 2021-05-31 Travel 1.2.840.1 1.2.422.722 0345 619150 Methodi 00:00:00 00:00:[address] 3.430.2.7 0.2.7.3.698 Ho spita .3.378900 084.8 l .8 2021-05-24 2021-05-[address] [facility] 012 [id number] 53 [place] 00:00:00 00:00:00 Encounter [facility] [address] 2021-05-24 2021-05-24 Travel 1.2.840.1 1.2.630.241 9496 971442 Methodi 00:00:00 00:00:[address] 3.430.2.7 0.2.7.3.698 Ho spita .3.714883 084.8 l .8 2021-05-23 2021-05-23 (TEL) STLMLC STLMLC [id number] Co mmon 00:00:00 00:00:00 [facility] 2021-05-19 2021-05-19 (TEL) STLMLC STLMLC [id number] Co mmon 00:00:00 00:00:00 [facility] 2021-05-01 2021-05-01 (TEL) STLMLC STLMLC [id number] Co mmon 00:00:00 00:00:00 [facility] 2021-04-26 2021-04-26 (TEL) STLMLC STLMLC [id number] Co mmon 00:00:00 00:00:00 [facility] 2021-04-26 2021-04-26 OFFICE STLMLC STLMLC [id number] Co mmon 00:00:00 00:00:00 VISIT [facility] PT [facility] LEVEL 4 [facility] 2021-04-26 2021-04-26 SUB ANNUAL STLMLC STLMLC [id number] Common 00:00:00 00:00:00 MCR [facility] VISIT [facility] 2021-04-21 2021-04-21 (TEL) STLMLC STLMLC [id number] Co mmon 00:00:00 00:00:00 [facility] 2021-01-13 2021-01-13 (TEL) STLMLC STLMLC [id number] Co mmon 00:00:00 00:00:00 [facility] 2020-12-13 2020-12-13 (TEL) STLMLC STLMLC [id number] Co mmon 00:00:00 00:00:00 [facility] 2020-11-28 2020-11-28 Patient Randal, 1.2.840.1 [id number] 21000 69838 Methodi 00:00:00 00:00:00 Outreach Bia 98795.1.[address] 3.430.2.7 Hospit a .3.459713 l .8 2020-11-25 2020-11-25 Patient Randal, 1.2.840.1 [id number] 21000 23923 Methodi 00:00:00 00:00:00 Outreach Bia 07139.1.[address] 3.430.2.7 Hospit a .3.226891 l .8 2020-11-24 2020-11-24 Patient Randal, 1.2.840.1 [id number] 52563 Methodi 00:00:00 00:00:00 Outreach Bia 05953.1.[address] 3.430.2.7 Hospit a .3.551876 l .8 2020-11-22 2020-11-23 Emergency Wild Kovacs 1.2.840. 1 [id number] Methodi 17:29:00 16:26:00 Baylee Girard [address]2068.1.[address] 3.430.2.7 Hospit a .3.833351 l .8 2020-11-22 2020-11-22 Travel 1.2.840.1 1.2.620.169 1593 827834 Methodi 00:00:00 00:00:[address] 3.430.2.7 0.2.7.3.698 spita .3.081171 084.8 l .8 2020-11-17 2020-11-17 Outpatient STLMLC STLMLC [id number] Common 00:00:00 00:00:00 [facility] 2020-11-02 2020-11-02 [facility] Cliff Levy 1.2.840.1 104 791401 [id number] Methodi 16:45:00 23:59:00 Calos Lewis 55634.1.[address] 3.430.2.7 Hospit a .3.676148 l .8 2020-11-02 2020-11-02 Lab [facility], 1.2.840.1 [id number] 019070 7644 Methodi 16:00:31 16:05:31 Calos Feng 19342.1.[address] 3.430.2.7 Hospit a .3.456463 l .8 2020-11-02 2020-11-02 Travel 1.2.840.1 1.2.840.078 2249 650464 Methodi 00:00:00 00:00:[address] 3.430.2.7 0.2.7.3.698 Ho spita .3.298779 084.8 l .8 2020-10-26 2020-10-26 [facility] 1.2.840.1 [id number] 486 [id number] Methodi 12:51:36 23:59:00 Encounter Cliff Marion 79194.1.[address] 3.430.2.7 Hospit a .3.644981 l .8 2020-10-26 2020-10-26 [facility] 1.2.840.1 [id number] 921 [id number] Methodi 08:10:06 12:50:00 Encounter Cliff [place] 63971.1.[address] 3.430.2.7 Hospit a .3.916560 l .8 2020-10-26 2020-10-26 Travel 1.2.840.1 1.2.272.414 3588 972887 Methodi 00:00:00 00:00:[address] 3.430.2.7 0.2.7.3.698 Ho spita .3.772037 084.8 l .8 2020-10-23 2020-10-24 [facility] Curry 1.2.840.1 104 387924 [id number] Methodi 17:57:00 14:46:00 Encounter Heriberto York [address]8660.1.[address] Baylee Girard 3.430.2.7 [facility] .3.005164 l .8 2020-10-13 2020-10-13 Travel 1.2.840.1 1.2.612.934 2234 [id number] Methodi 00:00:00 00:00:[address] 3.430.2.7 0.2.7.3.698 Ho spita .3.925167 084.8 l .8 2020-10-12 2020-10-12 Transcribe Mildred, 1.2.840.1 [id number] 2 [id number] Methodi 00:00:00 00:00:00 Orders Cliff Marion 61329.1.[address] 3.430.2.7 Hospit a .3.536162 l .8 2020-10-11 2020-10-11 Outpatient STLMLC STLMLC [id number] Common 00:00:00 00:00:00 [facility] 2020-10-09 2020-10-09 Emergency Azevedo, 1.2.840.1 [id number] Methodi 16:28:00 19:29:[address] Gus 3.430.2.7 Hospit a .3.177378 l .8 2020-10-03 2020-10-03 Outpatient STLMLC STLMLC [id number] Common 00:00:00 00:00:00 [facility] 2020-09-19 2020-09-21 [facility] 1.2.840.1 [id number] Methodi 16:55:00 14:27:00 Encounter Heriberto York 73420.1.[address] Jennifer Ghosh 3.430.2.7 Hos lis .3.269805 l .8 2020-09-15 2020-09-15 Transcribe Jose, 1.2.840.1 [id number] Methodi 00:00:00 00:00:00 Orders Calos Feng 78387.1.[address] 3.430.2.7 Hospit a .3.367634 l .8 2020-09-14 2020-09-14 Outpatient STLMLC STLMLC [id number] Common 00:00:00 00:00:00 [facility] 2020-08-31 2020-09-02 Inpatient GARRETAKAR, [facility] [id number] [place] 00:00:00 00:00:00 PIERCE 426 Method i 2020-08-10 2020-08-13 Inpatient YORK, [facility] [id number] [place] 00:00:00 00:00:00 HERIBERTO 301 Method i 2020-08-09 2020-08-09 Emergency NUFaustinoZEN, [facility] 064 [id number] 75 [place] 00:00:00 00:00:00 ROMERO 618 Method i 2020-08-08 2020-08-08 Emergency ELLE, [facility] 064 [id number] 08 [place] 00:00:00 00:00:00 NOBLE 028 Method i 2020-07-27 2020-07-27 Outpatient STLMLC STLMLC [id number] Common 00:00:00 00:00:00 [facility] 2020-07-18 2020-07-18 Outpatient [facility] [id number] [place] 00:00:00 00:00:00 996 Method i 2020-07-04 2020-07-07 Inpatient JENNIFER GHOSH [facility] 064 [id number] [place] 00:00:00 00:00:00 529 Method i 2020-06-28 2020-06-28 Outpatient [facility]LMLC STLMLC [id number] Common 00:00:00 00:00:00 [facility] 2020-06-20 2020-06-20 Outpatient STLMLC STLMLC [id number] Common 00:00:00 00:00:00 [facility] 2020-05-30 2020-06-03 Inpatient JENNIFER GHOSH [facility] [id number] [place] 00:00:00 00:00:00 431 Method i 2020-05-27 2020-05-27 Outpatient YALAMANCHIL [facility] [id number] [place] 00:00:00 00:00:00 YIFAN Torres 752 Meth erasto 2020-05-20 2020-05-20 Outpatient STLMLC STLC [id number] Common 00:00:00 00:00:00 [facility] 2020-05-13 2020-05-17 Inpatient MARYBETH, [facility] [id number] [place] 00:00:00 00:00:00 [facility] 422 Method i 2020-04-13 2020-04-21 Inpatient YOJANA, [facility] 064 [id number] [place] 00:00:00 00:00:00 JUNO 459 Method i 2020-04-13 2020-04-13 [facility] [id number] Common 16:02:00 16:02:00 [place] [address] [facility] 2020-04-13 2020-04-13 [facility] [id number] Common 09:33:00 09:33:00 t [place] [address] [facility] 2020-04-05 2020-04-05 [facility] 32 [id number] Common 09:10:00 09:10:00 t [place] [address] [facility] 2020-04-04 2020-04-04 [facility] 32 [id number] Common 10:58:00 10:58:00 t [place] [address] [facility] 2020-04-04 2020-04-04 [facility] 32 [id number] Common 10:00:00 10:00:00 [place] [address] [facility] 2020-03-17 2020-03-19 Inpatient TING [facility] [id number] [place] 00:00:00 00:00:00 Fausto PIERSON2 Method i BAYLEE 2020-03-16 2020-03-16 [facility] [id number] Common 11:12:00 11:12:00 [place] [address] [facility] 2020-03-14 2020-03-14 Outpatient JACQUELIN, [facility] [id number] [place] 00:00:00 00:00:00 EBONY 426 Method i 2020-03-10 2020-03-10 [facility] [id number] Common 13:18:00 13:18:00 [place] [address] [facility] 2020-03-07 2020-03-07 [facility] 31 [id number] Common 16:07:00 16:07:00 t [place] [address] [facility] 2020-03-04 2020-03-04 [facility] [id number] Common 11:00:00 11:00:00 t [place] [address] [facility] 2020-03-04 2020-03-04 [facility] [id number] Common 11:00:00 11:00:00 t [place] [address] [facility] 2020-03-04 2020-03-04 Outpatient MEAGAN, [facility] [id number] [place] 00:00:00 00:00:00 JAYASIMHA 578 Meth erasto 2020-02-18 2020-02-21 Inpatient YORK, [facility] [id number] [place] 00:00:00 00:00:00 HERIBERTO 304 Method i 2020-01-18 2020-01-20 Inpatient DINAKAR, [facility] [id number] [place] 00:00:00 00:00:00 PIERCE 881 Method i 2020-01-07 2020-01-11 Inpatient YORK, [facility] [id number] [place] 00:00:00 00:00:00 HERIBERTO 087 Method i 2019-12-29 2019-12-29 [facility] [id number] Common 07:03:00 07:03:00 [place] [address] [facility] 2019-12-23 2019-12-25 Inpatient TING [facility] [id number] 99 [place] 00:00:00 00:00:00 PIERSON, 540 Method i BAYLEE 2019-12-23 2019-12-23 Outpatient JACQUELIN, [facility] [id number] [place] 00:00:00 00:00:00 AHMED 960 Method i 2019-12-22 2019-12-22 Office Daija [facility] [id number] Univers 14:08:03 14:56:41 [facility] [id number] it y of Surgical 4.2.7.2.686 Brent as Specialti [phone] Me dical es 198 [facility] 2019-12-22 2019-12-22 [facility] [id number] 14:08:03 14:56:41 [facility] [id number] Surgical 4.2.7.2.686 Specialti [id number] es [address] [place] [address] 2019-12-22 2019-12-22 [facility] [id number] Univers 14:15:00 14:15:00 [facility] 2019-12-15 2019-12-15 [facility] [id number] Univers 14:57:28 15:12:28 [facility] [id number] it y of Surgical 4.2.7.2.686 Brent as Specialti [phone] Me dical es 198 [facility] 2019-12-15 2019-12-15 Outpatient [facility] [id number] Univers 15:00:00 15:00:00 [facility] 2019-12-08 2019-12-08 [facility] [id number] Univers 15:45:23 16:15:13 [facility] [id number] it y of Surgical 4.2.7.2.686 Brent as Specialti [id number] Me dical es 198 [facility] 2019-12-08 2019-12-08 Outpatient [facility] [id number] Univers 16:00:00 16:00:00 [facility] 2019-12-08 2019-12-08 Outpatient [facility] [id number] Univers 13:45:00 13:45:00 [facility] 2019-10-30 2019-10-30 Outpatient Christian[facility] [id number] Univers 10:15:00 10:15:00 [facility] 2019-10-26 2019-10-26 Orders Doctor KIRIT [id number] Univers 00:00:00 00:00:00 Only Unassigned, MICHAEL [id number] ity of [place] [facility] 4.2.7.2.686 Brent as [id number] [address] 2019-10-22 2019-10-22 Outpatient Christian[facility] [id number] Univers 16:15:00 16:15:00 [facility] 2019-10-22 2019-10-22 Office [facility] [id number] Univers 10:06:57 10:56:32 Visit [facility] [id number] it y of Surgical 4.2.7.2.686 Brent as Specialti [phone] Me dical es 198 [facility] 2019-10-22 2019-10-22 Outpatient Christian[facility] [id number] Univers 10:15:00 10:15:00 [facility] 2019-10-12 2019-10-15 [id number] [place] 00:00:00 00:00:00 HERIBERTO 906 Method i 2019-09-24 2019-09-24 [facility] [id number] Univers 11:21:26 11:41:20 Visit [facility] [id number] it y of Surgical 4.2.7.2.686 Brent as Specialti [id number] Me dical es 198 [facility] 2019-09-24 2019-09-24 Outpatient Christian[facility] [id number] Univers 11:15:00 11:41:20 [facility] 2019-09-01 2019-09-03 Inpatient YORK [facility] [id number] [place] 00:00:00 00:00:00 HERIBERTO 637 Method i 2019-07-20 2019-07-20 [facility] [id number] Common 14:02:00 14:02:[address] [facility] 2019-07-16 2019-07-16 [facility] [id number] Common 13:15:00 13:15:00 [place] [address] [facility] 2019-06-16 2019-06-18 Inpatient CHELA, [facility] [id number] [place] 00:00:00 00:00:00 HERIBERTO [address] 2019-05-07 2019-05-08 Outpatient DARCY, UMAR [facility] [id number] [place] 00:00:00 00:00:[address] 2019-04-23 2019-04-23 Outpatient GALATI, [facility] [id number] [place] 00:00:00 00:00:00 CALOS [address] 2019-04-23 2019-04-23 Outpatient JACQUELIN, [facility] [id number] [place] 00:00:00 00:00:00 AHMED [address] 2019-04-15 2019-04-15 [facility] [id number] Common 14:19:00 14:19:00 [place] [address] [facility] 2019-04-09 2019-04-09 [facility] [id number] Common 14:00:00 14:00:00 [place] [address] [facility] 2019-03-10 2019-03-10 Transition Bennie Ma 1.2.840.114 [id number] Univers 00:00:00 00:00:00 of Care Anabell Almaguer [id number] it y of [place] [id number] [facility] [address] 2019-03-06 2019-03-09 [facility] Akanksha Jensen 1.2.840. 114 [id number] Univers 00:42:03 16:11:00 Encounter Indra Motta 350.1.13.1 0 ity of [facility] 4.2.7.2.686 [place] [id number] [facility] [address] 2019-01-21 2019-01-21 Emergency X SANCHEZ, [facility] ERT [id number] Univers 19:21:56 22:21:00 MARTELL tatum [facility] 2018-09-09 2018-09-09 [facility] [id number] [place] 14:45:00 14:45:00 [place] [address] [facility] 2018-04-15 2018-04-15 [facility] [id number] [place] 12:02:00 12:02:00 [place] [address] [facility] 2018-02-19 2018-02-19 [facility] [id number] Common 15:08:00 15:08:00 [place] [address] [facility] 2018-01-24 2018-01-24 [facility] [id number] Common 11:15:00 11:15:00 [place] [address] [facility] Results Test Description Test Time Test Comments Results Result Comments Source SARS-CoV-2 (COVID-19) RNA [Presence] in Respiratory sp ecimen by 2022-12-17 19:26:29 GUSTAVO with probe detection Test Item Value Reference Range Interpretation Comme nts SARS-CoV-2 (COVID-19) RNA [Presence] in Respiratory specimen by Not detected GUSTAVO with probe detection (test code = 34657-1) 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 (test code = Un known 19348-2) Whether the patient has symptoms related to condition of interest U nknown (test code = 95625-6) Whether the patient was hospitalized for condition of interest Unkn own (test code = 86633-9) Whether the patient was admitted to intensive care unit (ICU) for U nknown condition of interest (test code = 60451-4) Whether patient resides in a congregate care setting (test code = U nknown 97626-5) status (test code = 82437-6) Unknown Date and time of symptom onset (test code = 40061-7) Unknown [facility] DE[facility]-OdA-4 (COVID-19) RNA [Presence] in Respiratory specimen by GUSTAVO with probe [id number] 18:27:11 Test Item Value Reference Range Interpretation Comments SARS-CoV-2 (COVID-19) RNA Not detected [Presence] in Respiratory specimen by GUSTAVO with probe detection (test code = 95591-2) 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 employed in a Unknown healthcare setting (test code = 40618-6) Whether the patient has symptoms Unknown related to condition of interest (test code = 97777-3) Whether the patient was Unknown hospitalized for condition of interest (test code = 00458-6) Whether the patient was admitted Unknown to intensive care unit (ICU) for condition of interest (test code = 78239-9) Whether patient resides in a Unknown congregate care setting (test code = 42310-9) status (test code = Unknown 56080-0) Date and time of symptom onset Unknown (test code = 40707-9) PHI MICHAELSARS-CoV-2 (COVID-19) RNA [Presence] in Respiratory specimen by GUSTAVO with probe [id number] 02:07:43 Test Item Value Reference Range Interpretation Comments SARS-CoV-2 (COVID-19) RNA Not detected [Presence] in Respiratory specimen by GUSTAVO with probe detection (test code = 04129-7) 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 employed in a Unknown healthcare setting (test code = 82044-6) Whether the patient has symptoms Unknown related to condition of interest (test code = 00115-3) Whether the patient was Unknown hospitalized for condition of interest (test code = 76939-7) Whether the patient was admitted Unknown to intensive care unit (ICU) for condition of interest (test code = 84433-1) Whether patient resides in a Unknown congregate care setting (test code = 28629-9) status (test code = Unknown 01237-9) Date and time of symptom onset Unknown (test code = 00104-5) PHI MICHAELSARS-CoV-2 (COVID-19) RNA [Presence] in Respiratory specimen by GUSTAVO with probe [id number] 21:37:35 Test Item Value Reference Range Interpretation Comments SARS-CoV-2 (COVID-19) RNA Not detected [Presence] in Respiratory specimen by GUSTAVO with probe detection (test code = 44049-7) 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 employed in a Unknown healthcare setting (test code = 61013-0) Whether the patient has symptoms Unknown related to condition of interest (test code = 96268-0) Whether the patient was Unknown hospitalized for condition of interest (test code = 55781-8) Whether the patient was admitted Unknown to intensive care unit (ICU) for condition of interest (test code = 21607-2) Whether patient resides in a Unknown congregate care setting (test code = 42410-7) status (test code = Unknown 47374-1) Date and time of symptom onset Unknown (test code = 39800-0) PHI MICHAELSARS-CoV-2 (COVID-19) RNA [Presence] in Respiratory specimen by GUSTAVO with probe [id number] 05:52:15 Test Item Value Reference Range Interpretation Comments SARS-CoV-2 (COVID-19) RNA Not detected [Presence] in Respiratory specimen by GUSTAVO with probe detection (test code = 29918-5) 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 employed in a Unknown healthcare setting (test code = 60529-1) Whether the patient has symptoms Unknown related to condition of interest (test code = 51958-6) Whether the patient was Unknown hospitalized for condition of interest (test code = 98694-8) Whether the patient was admitted Unknown to intensive care unit (ICU) for condition of interest (test code = 97838-1) Whether patient resides in a Unknown congregate care setting (test code = 29362-8) status (test code = Unknown 76251-5) Date and time of symptom onset Unknown (test code = 10581-5) PHI MICHAELSARS-CoV-2 (COVID-19) RNA [Presence] in Respiratory specimen by GUSTAVO with probe [id number] 05:19:43 Test Item Value Reference Range Interpretation Comments SARS-CoV-2 (COVID-19) RNA Not detected [Presence] in Respiratory specimen by GUSTAVO with probe detection (test code = 54915-5) 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 employed in a Unknown healthcare setting (test code = 87909-7) Whether the patient has symptoms Unknown related to condition of interest (test code = 53604-6) Whether the patient was Unknown hospitalized for condition of interest (test code = 27826-6) Whether the patient was admitted Unknown to intensive care unit (ICU) for condition of interest (test code = 18634-7) Whether patient resides in a Unknown congregate care setting (test code = 43896-4) status (test code = Unknown 68500-3) Date and time of symptom onset Unknown (test code = 21525-2) PHI MICHAELSARS-CoV-2 (COVID-19) RNA [Presence] in Respiratory specimen by GUSTAVO with probe [id number] 00:24:44 Test Item Value Reference Range Interpretation Comments SARS-CoV-2 (COVID-19) RNA Not detected [Presence] in Respiratory specimen by GUSTAVO with probe detection (test code = 46477-2) 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 employed in a Unknown healthcare setting (test code = 26764-9) Whether the patient has symptoms Unknown related to condition of interest (test code = 80866-5) Whether the patient was Unknown hospitalized for condition of interest (test code = 41587-6) Whether the patient was admitted Unknown to intensive care unit (ICU) for condition of interest (test code = 26216-8) Whether patient resides in a Unknown congregate care setting (test code = 32384-6) status (test code = Unknown 62625-5) Date and time of symptom onset Unknown (test code = 22853-0) PHI MICHAELSARS-CoV-2 (COVID-19) RNA [Presence] in Respiratory specimen by GUSTAVO with probe [id number] 07:50:50 Test Item Value Reference Range Interpretation Comments SARS-CoV-2 (COVID-19) RNA Not detected [Presence] in Respiratory specimen by GUSTAVO with probe detection (test code = 99030-4) 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 employed in a Unknown healthcare setting (test code = 14101-9) Whether the patient has symptoms Unknown related to condition of interest (test code = 01890-7) Whether the patient was Unknown hospitalized for condition of interest (test code = 23579-9) Whether the patient was admitted Unknown to intensive care unit (ICU) for condition of interest (test code = 22987-3) Whether patient resides in a Unknown congregate care setting (test code = 45866-7) status (test code = Unknown 69530-7) Date and time of symptom onset Unknown (test code = 27011-4) PHI MICHAELSARS-CoV-2 (COVID-19) RNA [Presence] in Respiratory specimen by GUSTAVO with probe [id number] 19:18:03 Test Item Value Reference Range Interpretation Comments SARS-CoV-2 (COVID-19) RNA Not detected [Presence] in Respiratory specimen by GUSTAVO with probe detection (test code = 06963-4) 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 employed in a No healthcare setting (test code = 75657-3) Whether the patient has symptoms Yes related to condition of interest (test code = 66588-3) Whether the patient was No hospitalized for condition of interest (test code = 44731-4) Whether the patient was admitted No to intensive care unit (ICU) for condition of interest (test code = 25228-8) Whether patient resides in a No congregate care setting (test code = 90374-6) status (test code = No 04360-9) Date and time of symptom onset Unknown (test code = 03351-8) PHI MICHAELSARS-CoV-2 (COVID-19) RNA [Presence] in Respiratory specimen by GUSTAVO with probe [id number] 11:44:34 Test Item Value Reference Range Interpretation Comments SARS-CoV-2 (COVID-19) RNA Not detected [Presence] in Respiratory specimen by GUSTAVO with probe detection (test code = 49086-6) 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 employed in a Unknown healthcare setting (test code = 96701-8) Whether the patient has symptoms Unknown related to condition of interest (test code = 55428-6) Whether the patient was Unknown hospitalized for condition of interest (test code = 14976-9) Whether the patient was admitted Unknown to intensive care unit (ICU) for condition of interest (test code = 90199-2) Whether patient resides in a Unknown congregate care setting (test code = 01924-9) status (test code = Unknown 34528-8) Date and time of symptom onset Unknown (test code = 00992-7) PHI MICHAELSARS-CoV-2 (COVID-19) RNA [Presence] in Respiratory specimen by GUSTAVO with probe [id number] 05:03:29 Test Item Value Reference Range Interpretation Comments SARS-CoV-2 (COVID-19) RNA Not detected [Presence] in Respiratory specimen by GUSTAVO with probe detection (test code = 07488-6) 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 employed in a Unknown healthcare setting (test code = 12289-0) Whether the patient has symptoms Unknown related to condition of interest (test code = 03151-8) Whether the patient was Unknown hospitalized for condition of interest (test code = 24605-4) Whether the patient was admitted Unknown to intensive care unit (ICU) for condition of interest (test code = 84292-4) Whether patient resides in a Unknown congregate care setting (test code = 90180-6) status (test code = Unknown 31154-5) Date and time of symptom onset Unknown (test code = 01771-6) PHI MICHAELSARS-CoV-2 (COVID-19) RNA [Presence] in Respiratory specimen by GUSTAVO with probe [id number] 16:50:47 Test Item Value Reference Range Interpretation Comments SARS-CoV-2 (COVID-19) RNA Not detected [Presence] in Respiratory specimen by GUSTAVO with probe detection (test code = 86269-5) 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 employed in a Unknown healthcare setting (test code = 42886-3) Whether the patient has symptoms Unknown related to condition of interest (test code = 31526-7) Whether the patient was Unknown hospitalized for condition of interest (test code = 76987-2) Whether the patient was admitted Unknown to intensive care unit (ICU) for condition of interest (test code = 49896-1) Whether patient resides in a Unknown congregate care setting (test code = 09728-1) status (test code = Unknown 91871-2) Date and time of symptom onset Unknown (test code = 48197-3) PHI Rivassaint elizabeth florencemushtaq B surface [id number] 23:01:06 Test Item Value Reference Range Interpretation Comments Hepatitis B surface Nonreactive Nonreactive antigen (test code = 5195-3) REJI (test code = REJI) Specimen is considered negative for HBsAg. Lab Interpretation (test Normal code = 89115-1) [facility] B core antibody, [id number] 23:01:06 Test Item Value Reference Range Interpretation Comments Hep B C IgM (test code = Nonreactive Nonreactive 26291-7) REJI (test code = REJI) Concrete Laborer ID - ADMIN Lab Interpretation (test Normal code = 01761-7) [facility], [id number] 23:01:06 Test Item Value Reference Range Interpretation Comments Hep A IgM (test code = Nonreactive Nonreactive 90114-5) REJI (test code = REJI) Concrete Laborer ID - ADMIN Lab Interpretation (test Normal code = 38481-9) [facility] C [id number] 23:01:06 Test Item Value Reference Range Interpretation Comments Hepatitis C Ab (test code Nonreactive Nonreactive = 89023-9) REJI (test code = REJI) Concrete Laborer ID - ADMIN Lab Interpretation (test Normal code = 87258-4) [facility] B surface [id number] 23:01:06 Test Item Value Reference Range Interpretation Comments Hepatitis B surface Nonreactive Nonreactive antigen (test code = 5195-3) REJI (test code = REIJ) Specimen is considered negative for HBsAg. Lab Interpretation (test Normal code = 50499-8) [facility] B core antibody, [id number] 23:01:06 Test Item Value Reference Range Interpretation Comments Hep B C IgM (test code = Nonreactive Nonreactive 98252-8) REJI (test code = REJI) Concrete Laborer ID - ADMIN Lab Interpretation (test Normal code = 76134-3) [facility] A antibody, [id number] 23:01:06 Test Item Value Reference Range Interpretation Comments Hep A IgM (test code = Nonreactive Nonreactive 52923-2) REJI (test code = REJI) Concrete Laborer ID - ADMIN Lab Interpretation (test Normal code = 66496-0) [facility] C [id number] 23:01:06 Test Item Value Reference Range Interpretation Comments Hepatitis C Ab (test code Nonreactive Nonreactive = 96745-9) REJI (test code = REJI) Concrete Laborer ID - ADMIN Lab Interpretation (test Normal code = 42207-6) [facility] B surface [id number] 23:01:06 Test Item Value Reference Range Interpretation Comments Hepatitis B surface Nonreactive Nonreactive antigen (test code = 5195-3) REJI (test code = REJI) Specimen is considered negative for HBsAg. Lab Interpretation (test Normal code = 10135-4) [facility] B core antibody, [id number] 23:01:06 Test Item Value Reference Range Interpretation Comments Hep B C IgM (test code = Nonreactive Nonreactive 82358-6) REJI (test code = REJI) Concrete Laborer ID - ADMIN Lab Interpretation (test Normal code = 19973-7) [facility] fl[facility] A antibody, [id number] 23:01:06 Test Item Value Reference Range Interpretation Comments Hep A IgM (test code = Nonreactive Nonreactive 73506-0) REJI (test code = REJI) Concrete Laborer ID - ADMIN Lab Interpretation (test Normal code = 89300-2) [facility] C [id number] 23:01:06 Test Item Value Reference Range Interpretation Comments Hepatitis C Ab (test code Nonreactive Nonreactive = 82605-5) REJI (test code = REJI) Concrete Laborer ID - ADMIN Lab Interpretation (test Normal code = 97321-1) [facility] B surface [id number] 23:01:06 Test Item Value Reference Range Interpretation Comments Hepatitis B surface Nonreactive Nonreactive antigen (test code = 5195-3) REJI (test code = REJI) Specimen is considered negative for HBsAg. Lab Interpretation (test Normal code = 33500-1) [facility] B core antibody, [id number] 23:01:06 Test Item Value Reference Range Interpretation Comments Hep B C IgM (test code = Nonreactive Nonreactive 35904-9) REJI (test code = REJI) Concrete Laborer ID - ADMIN Lab Interpretation (test Normal code = 47287-1) [facility] A antibody, [id number] 23:01:06 Test Item Value Reference Range Interpretation Comments Hep A IgM (test code = Nonreactive Nonreactive 43965-8) REJI (test code = REJI) Concrete Laborer ID - ADMIN Lab Interpretation (test Normal code = 13790-3) [facility] C [id number] 23:01:06 Test Item Value Reference Range Interpretation Comments Hepatitis C Ab (test code Nonreactive Nonreactive = 56889-6) REJI (test code = REJI) Concrete Laborer ID - ADMIN Lab Interpretation (test Normal code = 13856-1) [facility] elizabeth florencetis B surface [id number] 23:01:06 Test Item Value Reference Range Interpretation Comments Hepatitis B surface Nonreactive Nonreactive antigen (test code = 5195-3) REJI (test code = REJI) Specimen is considered negative for HBsAg. Lab Interpretation (test Normal code = 51586-9) [facility] elizabeth florencetis B core antibody, [id number] 23:01:06 Test Item Value Reference Range Interpretation Comments Hep B C IgM (test code = Nonreactive Nonreactive 18308-7) REJI (test code = REJI) Concrete Laborer ID - ADMIN Lab Interpretation (test Normal code = 59975-3) [facility] antibody, [id number] 23:01:06 Test Item Value Reference Range Interpretation Comments Hep A IgM (test code = Nonreactive Nonreactive 81742-5) REJI (test code = REJI) Concrete Laborer ID - ADMIN Lab Interpretation (test Normal code = 64225-1) [facility]arillotis C [id number] 23:01:06 Test Item Value Reference Range Interpretation Comments Hepatitis C Ab (test code Nonreactive Nonreactive = 99045-8) REJI (test code = REJI) Concrete Laborer ID - ADMIN Lab Interpretation (test Normal code = 50722-0) [facility] [id number] 23:01:06 Test Item Value Reference Range Interpretation Comments HEPATITIS B SURFACE ANTIGEN (2) Nonreactive Nonreactive (BEAKER) (test code = 2585) Specimen is considered negative for HBsAg.HEPATITIS B CORE ANTIBODY, IGM 2022-01-23 23:01:06 Test Item Value Reference Range Interpretation Comments HEPATITIS B CORE IGM ANTIBODY Nonreactive Nonreactive (BEAKER) (test code = 645) Concrete Laborer ID - ADMINHEPATITIS C [id number] 23:01:06 Test Item Value Reference Range Interpretation Comments HEPATITIS C ANTIBODY (BEAKER) Nonreactive Nonreactive (test code = 367) Concrete Laborer ID - ADMINHEPATITIS A ANTIBODY, [id number] 23:01:06 Test Item Value Reference Range Interpretation Comments HEPATITIS A IGM ANTIBODY (BEAKER) Nonreactive Nonreactive (test code = 498) Concrete Laborer ID - SRJJQJWEE-HwE-7 (COVID-19) RNA [Presence] in Respiratory specimen by GUSTAVO with probe lypcmsgvi3119-15-34 04:55:57 Test Item Value Reference Range Interpretation Comments SARS-CoV-2 (COVID-19) RNA Not detected [Presence] in Respiratory specimen by GUSTAVO with probe detection (test code = 98833-2) 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 employed in a Unknown healthcare setting (test code = 36132-4) Whether the patient has symptoms Unknown related to condition of interest (test code = 89935-3) Whether the patient was Unknown hospitalized for condition of interest (test code = 75296-5) Whether the patient was admitted Unknown to intensive care unit (ICU) for condition of interest (test code = 23295-7) Whether patient resides in a Unknown congregate care setting (test code = 53309-8) status (test code = Unknown 90688-1) Date and time of symptom onset Unknown (test code = 43266-7) PHI DEANRS-CoV-2 (COVID-19) RNA [Presence] in Respiratory specimen by GUSTAVO with probe [id number] 01:48:29 Test Item Value Reference Range Interpretation Comments SARS-CoV-2 (COVID-19) RNA Not detected [Presence] in Respiratory specimen by GUSTAVO with probe detection (test code = 53161-9) 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 employed in a Unknown healthcare setting (test code = 96463-8) Whether the patient has symptoms Unknown related to condition of interest (test code = 77949-0) Whether the patient was Unknown hospitalized for condition of interest (test code = 75932-6) Whether the patient was admitted Unknown to intensive care unit (ICU) for condition of interest (test code = 05325-8) Whether patient resides in a Unknown congregate care setting (test code = 30403-8) status (test code = Unknown 00740-0) Date and time of symptom onset Unknown (test code = 48893-4) PHI MICHAELCT, [id number] 08:50:00Unlisted Reason for Exam - Click Yes and Enter Reason Below->YesUnlisted Reason for Exam->diarrhea. abdominal pain. C dif colitis.Is this for enterography?->NoWill this procedure require oral contrast?->No [facility]ENTERName[facility]LLA [facility] : 1960 Sex: FFINAL [...] thickening of the colon, with probable slight i mprovement from prior exam. No pneumatosis or free [...] MDReport Verified Date/Time: 09/15/2021 08:50:57 Basic Metabolic [id number] 07:34:36 Test Item Value Reference Range Interpretation Comments Sodium (test code = 138 meq/L 578-183 0634-2) Potassium (test code 3.7 meq/L 3.5-5.1 Specime n = 4623-3) slightly hemolyzed Chloride (test code = 105 meq/L 98-107 5-0) CO2 (test code = 26 meq/L 2028-04) BUN (test code = 10 mg/dL 03-01 3094-0) Creatinine (test code 0.72 mg/dL 0.57-1.25 Specim en = 2160-0) slightly hemolyzed Glucose (test code = 60 mg/dL 70-105 L 2345-7) Calcium (test code = 7.5 mg/dL 8.4-10.2 L 65064-1) EGFR (test code = 83 mL/min/1.[place] [address]-0) NOT ACCURATE CREATININE CLEARANCE IN PREDICTING GLOMERULAR FILTRATION RATE . ESTIMATED GFR I S NOT APPLICABLE FOR DIALYSIS PATIENTS. REJI (test code = REJI) Concrete Laborer ID - EOSpecimen moderately icteric Lab Interpretation Abnormal (test code = 57809-7) [facility] Metabolic [id number] 07:34:36 Test Item Value Reference Range Interpretation Comments Sodium (test code = 138 meq/L 092-472 0134-2) Potassium (test code 3.7 meq/L 3.5-5.1 Specime [...] (test code = 7.5 mg/dL 8.4-10.2 L 11767-1) EGFR (test code = 83 mL/min/1.[place] [address]-8) NOT ACCURATE CREATININE CLEARANCE IN PREDICTING GLOMERULAR FILTRATION RATE . ESTIMATED GFR I S NOT APPLICABLE FOR DIALYSIS PATIENTS. REJI (test code = REJI) Concrete Laborer ID - EOSpecimen moderately icteric Lab Interpretation Abnormal (test code = 65715-0) [facility] Metabolic [id number] 07:34:36 Test Item Value Reference Range Interpretation Comments Sodium (test code = 138 meq/L 055-546 0624-2) Potassium (test code 3.7 meq/L 3.5-5.1 Specime n = 2823-3) slightly hemolyzed Chloride (test code = 105 meq/L 98-107 2075-0) CO2 (test code = 26 meq/L 22-29 2028-9) BUN (test code = 10 mg/dL 7- 3094-0) Creatinine (test code 0.72 mg/dL 0.57-1.25 Specim en = 2160-0) slightly hemolyzed Glucose (test code = 60 mg/dL 70-105 L 2345-7) Calcium (test code = 7.5 mg/dL 8.4-10.2 L 95281-8) EGFR (test code = 83 mL/min/1.[place] [address]-1) NOT ACCURATE CREATININE CLEARANCE IN PREDICTING GLOMERULAR FILTRATION RATE . ESTIMATED GFR I S NOT APPLICABLE FOR DIALYSIS PATIENTS. REJI (test code = REJI) Concrete Laborer ID - EOSpecimen moderately icteric Lab Interpretation Abnormal (test code = 75342-9) [facility] MET[facility]OLIC [id number] 07:34:36 Test Item Value Reference Range Interpretation Comments SODIUM (BEAKER) 138 meq/L 136-145 (test code = 381) POTASSIUM (BEAKER) 3.7 meq/L 3.5-5.1 Specimen slightly (test code = 379) hemolyzed CHLORIDE (BEAKER) 105 meq/L 98-107 (test code = 382) CO2 (BEAKER) (test 26 meq/L -29 code = 355) BLOOD UREA NITROGEN 10 mg/dL 7- (BEAKER) (test code = 354) CREATININE (BEAKER) [...] S NOT APPLICABLE FOR DIALYSIS PATIEN TS. Concrete Laborer ID - EOSpecimen moderately ictericHepatic function [id number] 07:29:08 Test Item Value Reference Range Interpretation Comments Protein, Total (test 5.2 See_Comment L Specime n slightly code = 2885-2) hemolyzed [Automated message] The system which generated this result transmitted reference range : 6.0 - 8.3 gm/dL . The reference range was not used to interpr et this result as normal/abnormal . Albumin (test code = 2.1 g/dL 3.5-5.0 L Specime n slightly 32523-8) hemolyzed Total Bilirubin (test 3.9 mg/dL 0.2-1.2 [...] 1742-6) hemolyzed REJI (test code = REJI) Concrete Laborer ID - EOSpecimen moderately icteric Lab Interpretation Abnormal (test code = 21736-8) [facility] function [id number] 07:29:08 Test Item Value Reference Range Interpretation Comments Protein, Total (test 5.2 See_Comment L Specime n slightly code = 2885-2) hemolyzed [Automated message] The system which generated this result transmitted reference range : 6.0 - 8.3 gm/dL . The reference range was not used to interpr et this result as normal/abnormal . Albumin (test code = 2.1 g/dL 3.5-5.0 L Specime n slightly 34745-9) hemolyzed Total Bilirubin (test 3.9 mg/dL 0.2-1.2 [...] 1742-6) hemolyzed REJI (test code = REJI) Concrete Laborer ID - EOSpecimen moderately icteric Lab Interpretation Abnormal (test code = 74968-3) [facility] function [id number] 07:29:08 Test Item Value Reference Range Interpretation Comments Protein, Total (test 5.2 See_Comment L Specime n slightly code = 2885-2) hemolyzed [Automated message] The system which generated this result transmitted reference range : 6.0 - 8.3 gm/dL . The reference range was not used to interpr et this result as normal/abnormal . Albumin (test code = 2.1 g/dL 3.5-5.0 L Specime n slightly 35506-2) hemolyzed Total Bilirubin (test 3.9 mg/dL 0.2-1.2 [...] 1742-6) hemolyzed REJI (test code = REJI) Concrete Laborer ID - EOSpecimen moderately icteric Lab Interpretation Abnormal (test code = 23135-7) [facility] Hospital[facility]AT[facility] FUNCTION [id number] 07:29:08 Test Item Value Reference Range Interpretation [...] Specimen slightly (test code = 347) hemolyzed Concrete Laborer ID - EOSpecimen moderately ictericProthrombin time/[id number] 06:46:58 Test Item Value Reference Interpretation Comments Range Protime (test code = 22.1 See_Comment H [Autom ated 5902-2) message] The system which generated this result transmitted reference range : 11.9 - 14.2 seconds. The reference range was not used to interpret this result as normal/abnormal . INR (test code = 1.96 See_Comment [Automated Shopintoit1-6) message] The system which generated this result [...] valves. Lab Interpretation Abnormal (test code = 15441-8) [facility] HospitalProthrombin time/[id number] 06:46:58 Test Item Value Reference Interpretation Comments [...] valves. Lab Interpretation Abnormal (test code = 15059-6) [facility] HospitalProthrombin time/[id number] 06:46:58 Test Item Value Reference Interpretation Comments [...] valves. Lab Interpretation Abnormal (test code = 82772-9) [facility] HospitalPROTHROMBIN TIME/[id number] 06:46:58 Test Item Value Reference Range Interpretation Comments PROTIME (BEAKER) 22.1 seconds 11.9-14.2 H (test code = 759) INR (BEAKER) (test 1.96 See_Comment [Automat ed message] code = 370) The system [employer] h generated this result transmitted ref erence range: <=5.90. The reference range was not used to int erpret this result as normal/abnormal . RECOMMENDED COUMADIN/WARFARIN INR THERAPY RANGESSTANDARD DOSE: 2.0 - 3.0 Includes: PROPHYLAXIS for venous thrombosis, systemic embolization; TREATMENT for venous thrombosis and/or pulmonary embolus.HIGH RISK: Target INR is 2.5-3.5 for patients with mechanical heart valves.CBC with platelet count + automated [id number] 06:38:55 Test Item Value Reference Range Interpretation Comments WBC (test code = 6690-2) 7.9 See_Comment [A utomated message] The system [employer] generated this result transmitted ref erence range: 3.5 - 10 .5 K/L. The refe rence range was not u sed to interpret this result as normal/abnor mal. RBC (test code = 789-8) 2.53 See_Comment L [Au tomated message] The system [employer] generated this result transmitted ref erence range: 3.93 - 5 .22 M/L. The refe rence range was not u sed to interpret this result as normal/abnor mal. MCHC (test code = 786-4) 30.8 See_Comment L [A utomated message] The system [employer] generated this result transmitted ref erence range: [...] L [Aut omated message] 777-3) The system [employer] generated this result transmitted ref erence range: 150 - 45 0 K/CU MM. The referen ce range was not u sed to interpret this result as normal/abnor mal. MPV (test code = 10.6 fL 9.4-12.3 56714-4) nRBC (test code = 413) 0 See_Comment [Aut omated message] The system [employer] generated this result transmitted ref erence range: [...] See_Comment [Aut omated message] 670) The system [employer] generated this result transmitted ref erence range: 1.56 - 6 .13 K/L. The refe rence range was not u sed to interpret this result as normal/abnor mal. # Lymphs (test code = 0.99 See_Comment L [Auto mated message] 414) The system [employer] generated this result transmitted ref erence range: 1.18 - 3 .74 K/L. The refe rence range was not u sed to interpret this result as normal/abnor mal. # Monos (test code = 0.83 See_Comment H [Autom ated message] 415) The system [employer] generated this result transmitted ref erence range: 0.24 - 0 .36 K/L. The refe rence range was not u sed to interpret this result as normal/abnor mal. # Eos (test code = 416) 0.33 See_Comment [Au tomated message] The system [employer] generated this result transmitted ref erence range: 0.04 - 0 .36 K/L. The refe rence range was not u sed to interpret this result as normal/abnor mal. # Baso (test code = 417) 0.04 See_Comment [A utomated message] The system [employer] generated this result transmitted ref erence range: 0.01 - 0 .08 K/L. The refe rence range was not u sed to interpret this result as normal/abnor mal. Immature 1 % 0-1 Granulocytes-Relative (test code = 2801) Lab Interpretation (test Abnormal code = 67211-4) [facility] with platelet count + automated [id number] 06:38:55 Test Item Value Reference Range Interpretation Comments WBC (test code = 6690-2) 7.9 See_Comment [A utomated message] The system [employer] generated this result transmitted ref erence range: 3.5 - 10 .5 K/L. The refe rence range was not u sed to interpret this result as normal/abnor mal. RBC (test code = 789-8) 2.53 See_Comment L [Au tomated message] The system [employer] generated this result transmitted ref erence range: 3.93 - 5 .22 M/L. The refe rence range was not u sed to interpret this result as normal/abnor mal. MCHC (test code = 786-4) 30.8 See_Comment L [A utomated message] The system [employer] generated this result transmitted ref erence range: [...] L [Aut omated message] 777-3) The system [employer] generated this result transmitted ref erence range: 150 - 45 0 K/CU MM. The referen ce range was not u sed to interpret this result as normal/abnor mal. MPV (test code = 10.6 fL 9.4-12.3 90506-1) nRBC (test code = 413) 0 See_Comment [Aut omated message] The system [employer] generated this result transmitted ref erence range: [...] See_Comment [Aut omated message] 670) The system [employer] generated this result transmitted ref erence range: 1.56 - 6 .13 K/L. The refe rence range was not u sed to interpret this result as normal/abnor mal. # Lymphs (test code = 0.99 See_Comment L [Auto mated message] 414) The system [employer] generated this result transmitted ref erence range: 1.18 - 3 .74 K/L. The refe rence range was not u sed to interpret this result as normal/abnor mal. # Monos (test code = 0.83 See_Comment H [Autom ated message] 415) The system [employer] generated this result transmitted ref erence range: 0.24 - 0 .36 K/L. The refe rence range was not u sed to interpret this result as normal/abnor mal. # Eos (test code = 416) 0.33 See_Comment [Au tomated message] The system [employer] generated this result transmitted ref erence range: 0.04 - 0 .36 K/L. The refe rence range was not u sed to interpret this result as normal/abnor mal. # Baso (test code = 417) 0.04 See_Comment [A utomated message] The system [employer] generated this result transmitted ref erence range: 0.01 - 0 .08 K/L. The refe rence range was not u sed to interpret this result as normal/abnor mal. Immature 1 % 0-1 Granulocytes-Relative (test code = 2801) Lab Interpretation (test Abnormal code = 13562-7) [facility] + automated [id number] 06:38:55 Test Item Value Reference Range Interpretation Comments WBC (test code = 6690-2) 7.9 See_Comment [A utomated message] The system [employer] generated this result transmitted ref erence range: 3.5 - 10 .5 K/L. The refe rence range was not u sed to interpret this result as normal/abnor mal. RBC (test code = 789-8) 2.53 See_Comment L [Au tomated message] The system [employer] generated this result transmitted ref erence range: 3.93 - 5 .22 M/L. The refe rence range was not u sed to interpret this result as normal/abnor mal. MCHC (test code = 786-4) 30.8 See_Comment L [A utomated message] The system [employer] generated this result transmitted ref erence range: [...] L [Aut omated message] 777-3) The system [employer] generated this result transmitted ref erence range: 150 - 45 0 K/CU MM. The referen ce range was not u sed to interpret this result as normal/abnor mal. MPV (test code = 10.6 fL 9.4-12.3 54956-3) nRBC (test code = 413) 0 See_Comment [Aut omated message] The system [employer] generated this result transmitted ref erence range: [...] See_Comment [Aut omated message] 670) The system [employer] generated this result transmitted ref erence range: 1.56 - 6 .13 K/L. The refe rence range was not u sed to interpret this result as normal/abnor mal. # Lymphs (test code = 0.99 See_Comment L [Auto mated message] 414) The system [employer] generated this result transmitted ref erence range: 1.18 - 3 .74 K/L. The refe rence range was not u sed to interpret this result as normal/abnor mal. # Monos (test code = 0.83 See_Comment H [Autom ated message] 415) The system [employer] generated this result transmitted ref erence range: 0.24 - 0 .36 K/L. The refe rence range was not u sed to interpret this result as normal/abnor mal. # Eos (test code = 416) 0.33 See_Comment [Au tomated message] The system [employer] generated this result transmitted ref erence range: 0.04 - 0 .36 K/L. The refe rence range was not u sed to interpret this result as normal/abnor mal. # Baso (test code = 417) 0.04 See_Comment [A utomated message] The system [employer] generated this result transmitted ref erence range: 0.01 - 0 .08 K/L. The refe rence range was not u sed to interpret this result as normal/abnor mal. Immature 1 % 0-1 Granulocytes-Relative (test code = 2801) Lab Interpretation (test Abnormal code = 70880-5) [facility] W/PLT COUNT & AUTO [id number] 06:38:55 Test Item Value Reference Range Interpretation [...] = 2801) CBC W/PLT COUNT & AUTO [id number] 10:18:58 Test Item Value Reference Range Interpretation [...] (BEAKER) (test code = 2801) BASIC METABOLIC [id number] 08:06:00 Test Item Value Reference Range Interpretation [...] S NOT APPLICABLE FOR DIALYSIS PATIEN TS. Concrete Laborer ID - PIAYA LSpecimen moderately ictericHEPATIC FUNCTION [id number] 08:06:00 Test Item Value Reference Range Interpretation [...] (test code = 19 U/L 6-55 347) Concrete Laborer ID - MARLON Ferrera moderately ictericPROTHROMBIN TIME/[id number] 07:51:15 Test Item Value Reference Range Interpretation Comments PROTIME (BEAKER) 20.6 seconds 11.9-14.2 H (test code = 759) INR (BEAKER) (test 1.80 See_Comment [Automat ed message] code = 370) The system [employer] generated this result transmitted ref erence range: <=5.90. The reference range was not used to int erpret this result as normal/abnormal . RECOMMENDED COUMADIN/WARFARIN INR THERAPY RANGESSTANDARD DOSE: 2.0 - 3.0 Includes: PROPHYLAXIS for venous thrombosis, systemic embolization; TREATMENT for venous thrombosis and/or pulmonary embolus.HIGH RISK: Target INR is 2.5-3.5 for patients with mechanical heart valves.HEPATIC FUNCTION [id number] 07:41:30 Test Item Value Reference Range Interpretation [...] (test code = 21 U/L 6-55 347) Concrete Laborer ID - MARLON LSpecimen moderately ictericBASIC METABOLIC [id number] 07:41:29 Test Item Value Reference Range Interpretation [...] S NOT APPLICABLE FOR DIALYSIS PATIEN TS. Concrete Laborer ID - PIAYA LSpecimen moderately ictericPROTHROMBIN TIME/[id number] 07:34:58 Test Item Value Reference Range Interpretation Comments PROTIME (BEAKER) 19.3 seconds 11.9-14.2 H (test code = 759) INR (BEAKER) (test 1.66 See_Comment [Automat ed message] code = 370) The system [employer] generated this result transmitted ref erence range: <=5.90. The reference range was not used to int erpret this result as normal/abnormal . RECOMMENDED COUMADIN/WARFARIN INR THERAPY RANGESSTANDARD DOSE: 2.0 - 3.0 Includes: PROPHYLAXIS for venous thrombosis, systemic embolization; TREATMENT for venous thrombosis and/or pulmonary embolus.HIGH RISK: Target INR is 2.5-3.5 for patients with mechanical heart valves.CBC W/PLT COUNT & AUTO [id number] 07:30:35 Test Item Value Reference Range Interpretation [...] PERCENT (BEAKER) (test code = 2801) VITAMIN [id number] 07:00:04 Test Item Value Reference Range Interpretation Comments VITAMIN B12 (BEAKER) (test code = > pg/mL 213-816 H 774) Concrete Laborer ID Ajay FRANK WBASIC METABOLIC [id number] 06:43:51 Test Item Value Reference Range Interpretation [...] S NOT APPLICABLE FOR DIALYSIS PATIEN TS. Concrete Laborer ID - ZAC WOperator ID - MARLON LSpecimen slightly ictericVITAMIN D, [id number] 05:27:33 Test Item Value Reference Range Interpretation Comments VITAMIN D 25-OH (BEAKER) (test code 4.4 ng/mL 6.6-49.9 L = 2764) Effective 05/22/2017: Reference Range ChangeNew: 6.6-49.9 ng/mL Previous: 13.0- 47.8 ng/mLRecommendedVitamin D Target Range: 30.0-40.0 ng/mLOperator ID Ajay MASON LC-REACTIVE [id number] 05:23:46 Test Item Value Reference Range Interpretation Comments C-REACTIVE PROTEIN (BEAKER) (test 1.00 mg/dL 0.00-0.50 H code = 676) Concrete Laborer ID - ZAC [id number] 05:23:45 Test Item Value Reference Range Interpretation Comments MAGNESIUM (BEAKER) (test code = 1.6 mg/dL 1.6-2.6 627) Concrete Laborer ID - ZAC WHEPATIC FUNCTION [id number] 05:23:45 Test Item Value Reference Range Interpretation [...] (test code = 17 U/L 6-55 347) Concrete Laborer ID - ZAC WSpecimen slightly ictericPROTHROMBIN TIME/[id number] 04:53:27 Test Item Value Reference Range Interpretation Comments PROTIME (BEAKER) 22.4 seconds 11.9-14.2 H (test code = 759) INR (BEAKER) (test 2.00 See_Comment [Automat ed message] code = 370) The system [employer] generated this result transmitted ref erence range: <=5.90. The reference range was not used to int erpret this result as normal/abnormal . RECOMMENDED COUMADIN/WARFARIN INR THERAPY RANGESSTANDARD DOSE: 2.0 - 3.0 Includes: PROPHYLAXIS for venous thrombosis, systemic embolization; TREATMENT for venous thrombosis and/or pulmonary embolus.HIGH RISK: Target INR is 2.5-3.5 for patients with mechanical heart valves.CBC W/PLT COUNT & AUTO [id number] 04:49:49 Test Item Value Reference Range Interpretation [...] 0-1 H PERCENT (BEAKER) (test code = 2491) Basic Metabolic [id number] 08:26:03 Test Item Value Reference Range Interpretation Comments Sodium (test code = 137 meq/L 692-569 2207-2) Potassium (test code 3.5 meq/L 3.5-5.1 = 2823-3) Chloride (test code = 109 meq/L 98-107 H 2075-0) CO2 (test code = 24 meq/L 22-29 2028-9) BUN (test code = 13 mg/dL 7-21 3094-0) Creatinine (test code 0.73 mg/dL 0.57-1.25 = 2160-0) Glucose (test code = 85 mg/dL 70-105 2345-7) Calcium (test code = 7.7 mg/dL 8.4-10.2 L 22245-6) EGFR (test code = 81 mL/min/1.73 [place] [address]-9) NOT ACCURATE CREATININE CLEARANCE IN PREDICTING GLOMERULAR FILTRATION RATE . ESTIMATED GFR I S NOT APPLICABLE FOR DIALYSIS PATIENTS. REJI (test code = REJI) Concrete Laborer ID - ELODIARADHA Nadya ID - DBSpecimen slightly icteric Lab Interpretation Abnormal (test code = 35871-0) [facility] [id number] 08:26:03 Test Item Value Reference Range Interpretation [...] S NOT APPLICABLE FOR DIALYSIS PATIEN TS. Concrete Laborer ID - MARLON Davisrator ID - DBSpecimen slightly ictericHepatic function [id number] 07:24:45 Test Item Value Reference Range Interpretation Comments Protein, Total (test 4.9 See_Comment L [Autom ated code = 2885-2) message] The system which generated this result transmitted reference range : 6.0 - 8.3 gm/dL . The reference range was not used to interpr et this result as normal/abnormal . Albumin (test code = 2.2 g/dL 3.5-5.0 L 93534-0) Total Bilirubin (test 4.0 mg/dL 0.2-1.2 H code = 1974-2) Bilirubin, Direct 1.5 mg/dL 0.1-0.5 H (test code = 1967-7) Alkaline Phosphatase 111 U/L 40-150 (test code = 6768-6) AST (test code = 53 U/L 5-34 H 1920-8) ALT (test code = 17 U/L 6-55 1742-6) REJI (test code = REJI) Concrete Laborer ID - MARLON LSpecimen slightly icteric Lab Interpretation Abnormal (test code = 27862-4) [facility]45 Test Item Value Reference Range Interpretation Comments Magnesium (test code = 1.7 mg/dL 1.6-2.6 30297-9) REJI (test code = REJI) Concrete Laborer ID - MARLON L Lab Interpretation (test Normal code = 57458-6) [facility]2022-01-31 07:24:45 Test Item Value Reference Range Interpretation Comments MAGNESIUM (BEAKER) (test code = 1.7 mg/dL 1.6-2.6 627) Concrete Laborer ID - MARLON LHEPATIC FUNCTION [id number] 07:24:45 Test Item Value Reference Range Interpretation [...] (test code = 17 U/L 6-55 347) Concrete Laborer ID - MARLON Ferrera slightly ictericProthrombin time/[id number] 06:40:57 Test Item Value Reference Interpretation Comments [...] valves. Lab Interpretation Abnormal (test code = 91265-0) [facility]/[id number] 06:40:57 Test Item Value Reference Range Interpretation [...] heart valves.CBC with platelet count + automated xion7107-06-78 06:36:06 Test Item Value Reference Range Interpretation Comments WBC (test code = 6690-2) 10.6 See_Comment H [A utomated message] The system Agolo generated this result transmitted ref erence range: 3.5 - 10 .5 K/L. The refe rence range was not u sed to interpret this result as normal/abnor mal. RBC (test code = 789-8) 2.76 See_Comment L [Au tomated message] The system Agolo generated this result transmitted ref erence range: 3.93 - 5 .22 M/L. The refe rence range was not u sed to interpret this result as normal/abnor mal. MCHC (test code = 786-4) 31.5 See_Comment L [A utomated message] The system Agolo generated this result transmitted ref erence range: [...] L [Aut omated message] 777-3) The system Agolo generated this result transmitted ref erence range: 150 - 45 0 K/CU MM. The referen ce range was not u sed to interpret this result as normal/abnor mal. MPV (test code = 9.6 fL 9.4-12.3 19456-9) nRBC (test code = 413) 0 See_Comment [Aut omated message] The system Agolo generated this result transmitted ref erence range: [...] H [Aut omated message] 670) The system Agolo generated this result transmitted ref erence range: 1.56 - 6 .13 K/L. The refe rence range was not u sed to interpret this result as normal/abnor mal. # Lymphs (test code = 1.18 See_Comment [Auto mated message] 414) The system Agolo generated this result transmitted ref erence range: 1.18 - 3 .74 K/L. The refe rence range was not u sed to interpret this result as normal/abnor mal. # Monos (test code = 0.64 See_Comment H [Autom ated message] 415) The system Agolo generated this result transmitted ref erence range: 0.24 - 0 .36 K/L. The refe rence range was not u sed to interpret this result as normal/abnor mal. # Eos (test code = 416) 0.31 See_Comment [Au tomated message] The system Agolo generated this result transmitted ref erence range: 0.04 - 0 .36 K/L. The refe rence range was not u sed to interpret this result as normal/abnor mal. # Baso (test code = 417) 0.02 See_Comment [A utomated message] The system Agolo generated this result transmitted ref erence range: 0.01 - 0 .08 K/L. The refe rence range was not u sed to interpret this result as normal/abnor mal. Immature 1 % 0-1 Granulocytes-Relative (test code = 2801) Lab Interpretation (test Abnormal code = 92571-4) [facility] W/PLT COUNT & AUTO [id number] 06:36:06 Test Item Value Reference Range Interpretation [...] (BEAKER) (test code = 2801) BASIC METABOLIC [id number] 09:04:28 Test Item Value Reference Range Interpretation [...] S NOT APPLICABLE FOR DIALYSIS PATIEN TS. Concrete Laborer ID - DBSpecimen moderately szablxhIUENZGGHT9182-07-34 08:26:10 Test Item Value Reference Range Interpretation Comments MAGNESIUM (BEAKER) (test code = 1.8 mg/dL 1.6-2.6 627) Concrete Laborer ID - DBHEPATIC FUNCTION [id number] 08:26:10 Test Item Value Reference Range Interpretation [...] (test code = 17 U/L 6-55 347) Concrete Laborer ID - DBSpecimen moderately ictericPROTHROMBIN TIME/[id number] 07:14:13 Test Item Value Reference Range Interpretation Comments PROTIME (BEAKER) 23.1 seconds 11.9-14.2 H (test code = 759) INR (BEAKER) (test 2.08 See_Comment [Automat ed message] code = 370) The system Agolo generated this result transmitted ref erence range: <=5.90. The reference range was not used to int erpret this result as normal/abnormal . RECOMMENDED COUMADIN/WARFARIN INR THERAPY RANGESSTANDARD DOSE: 2.0 - 3.0 Includes: PROPHYLAXIS for venous thrombosis, systemic embolization; TREATMENT for venous thrombosis and/or pulmonary embolus.HIGH RISK: Target INR is 2.5-3.5 for patients with mechanical heart valves.CBC W/PLT COUNT & AUTO [id number] 07:07:41 Test Item Value Reference Range Interpretation [...] (BEAKER) (test code = 2801) BASIC METABOLIC [id number] 09:04:18 Test Item Value Reference Range Interpretation [...] S NOT APPLICABLE FOR DIALYSIS PATIEN TS. Concrete Laborer ID - DBOperator ID - DBSpecimen moderately ictericHEPATIC FUNCTION [id number] 07:53:06 Test Item Value Reference Range Interpretation [...] (test code = 16 U/L 6-55 347) Concrete Laborer ID - DBSpecimen moderately ictericManual Upfprpqkyobw7875-93-10 07:50:25 Test Item Value Reference Range Interpretation [...] = 3438) REJI (test code = REJI) Concrete Laborer ID - michaela He comments: Slide comments: Lab Interpretation (test Abnormal code = 32943-4) [facility] Mgfdjzkkphnk9712-99-52 07:50:25 Test Item Value Reference Range Interpretation [...] Ovalocytes (test code = 1+ few 477) Garita Cells (test code = 1+ few 474) Artifact (test code = Present 3432) Platelet Conc (test code Decreased = 3438) RJEI (test code = REJI) Concrete Laborer ID - michaela He comments: Slide comments: Lab Interpretation (test Abnormal code = 89860-0) [facility] Tzbdzblpvoqp9134-37-03 07:50:25 Test Item Value Reference Range Interpretation [...] = 3438) REJI (test code = REJI) Concrete Laborer ID - michaela balsaraUser comments: Slide comments: Lab Interpretation (test Abnormal code = 54542-6) [facility] Fctmprdduzcv1295-01-69 07:50:25 Test Item Value Reference Range Interpretation [...] = 3438) REJI (test code = REJI) Concrete Laborer ID - michaela balsaraUser comments: Slide comments: Lab Interpretation (test Abnormal code = 93633-2) [facility](CELLAVISION MANUAL DIFF)2021-09-09 07:50:25 Test Item Value [...] CONCENTRATION Decreased (CELLAVISION)(BEAKER) (test code = 3438) Concrete Laborer ID - michaela Cutler comments: Slide comments:CBC W/PLT COUNT & AUTO [id number] 07:50:24 Test Item Value Reference Range Interpretation [...] WBC 0-0 (test code = 413) PROTHROMBIN TIME/[id number] 06:28:05 Test Item Value Reference Range Interpretation Comments PROTIME (BEAKER) 24.0 seconds 11.9-14.2 H (test code = 759) INR (BEAKER) (test 2.18 See_Comment [Automat ed message] code = 370) The system Agolo generated this result transmitted ref erence range: [...] = No growth in 5 days 6463-4) [facility]uncture) 2021-09-08 14:01:01 Test Item Value Reference Range Interpretation Comments Result (test code = No growth in 5 days 6463-4) [facility]) 2021-09-08 14:01:01 Test Item Value Reference Range Interpretation Comments Result (test code = No growth in 5 days 6463-4) [facility] ([facility] Venipuncture) 2021-09-08 14:01:01 Test Item Value Reference Range Interpretation Comments Result (test code = No growth in 5 days 6463-4) [facility] HospitalBLO[facility] [id number] 14:01:01 Test Item Value Reference Range Interpretation Comments CULTURE (BEAKER) (test No growth in 5 days code = 1095) Tazzvfh3772-98-07 11:09:32 Test Item Value Reference Range Interpretation Comments Ammonia (test code = 35 See_Comment [Autom ated 94951-4) message] The system which generated this result transmit barron reference range : 18 - 72 mol/L . The reference range was not u sed to interpret th is result as normal/abnormal . REJI (test code = REJI) Concrete Laborer ID - MARLON L Lab Interpretation Normal (test code = 78194-3) [facility]32 Test Item Value Reference Range Interpretation Comments Ammonia (test code = 35 See_Comment [Autom ated 65393-7) message] The system which generated this result transmit barron reference range : 18 - 72 mol/L . The reference range was not u sed to interpret th is result as normal/abnormal . REJI (test code = REJI) Concrete Laborer ID - MARLON Zapien Lab Interpretation Normal (test code = 90633-1) [facility] 11:09:32 Test Item Value Reference Range Interpretation Comments Ammonia (test code = 35 See_Comment [Autom ated 50148-0) message] The system which generated this result transmit barron reference range : 18 - 72 mol/L . The reference range was not u sed to interpret th is result as normal/abnormal . REJI (test code = REJI) Concrete Laborer ID - MARLON Zapien Lab Interpretation Normal (test code = 51517-0) [facility] 11:09:32 Test Item Value Reference Range Interpretation Comments Ammonia (test code = 35 See_Comment [Autom ated 55620-3) message] The system which generated this result transmit barron reference range : 18 - 72 mol/L . The reference range was not u sed to interpret th is result as normal/abnormal . REJI (test code = REJI) Concrete Laborer ID - MARLON L Lab Interpretation Normal (test code = 38083-9) [facility]:09[facility]32 Test Item Value Reference Range Interpretation Comments AMMONIA (BEAKER) (test code = 348) 35 mol/L 18-72 Concrete Laborer ID - MARLON LCBC W/PLT COUNT & AUTO [id number] 07:57:44 Test Item Value Reference Range Interpretation [...] CONCENTRATION Decreased (CELLAVISION)(BEAKER) (test code = 3438) Concrete Laborer ID - Ishanradha comments: Slide comments:BASIC METABOLIC [id number] 06:46:23 Test Item Value Reference Range Interpretation [...] S NOT APPLICABLE FOR DIALYSIS PATIEN TS. Concrete Laborer ID - ZAC WSpecimen slightly mgdamrbRqwecyzblc2305-10-63 06:42:47 Test Item Value Reference Range Interpretation Comments Phosphorus (test code = 2.4 mg/dL 2.3-4.7 2777-1) REJI (test code = REJI) Concrete Laborer ID - ZAC W Lab Interpretation (test Normal code = 06990-8) [facility] 06:42:47 Test Item Value Reference Range Interpretation Comments Phosphorus (test code = 2.4 mg/dL 2.3-4.7 2777-1) REJI (test code = REJI) Concrete Laborer ID - ZAC W Lab Interpretation (test Normal code = 26143-8) [facility] 06:42:47 Test Item Value Reference Range Interpretation Comments Phosphorus (test code = 2.4 mg/dL 2.3-4.7 2777-1) REJI (test code = REJI) Concrete Laborer ID - ZAC W Lab Interpretation (test Normal code = 15780-9) [facility] 06:42:47 Test Item Value Reference Range Interpretation Comments Phosphorus (test code = 2.4 mg/dL 2.3-4.7 2777-1) REJI (test code = REJI) Concrete Laborer ID - ZAC W Lab Interpretation (test Normal code = 95191-8) [facility]2022-[facility] 06:42:47 Test Item Value Reference Range Interpretation Comments PHOSPHORUS (BEAKER) (test code = 2.4 mg/dL 2.3-4.7 604) Concrete Laborer ID - ZAC WHEPATIC FUNCTION [id number] 06:42:47 Test Item Value Reference Range Interpretation [...] (test code = 15 U/L 6-55 347) Concrete Laborer ID - ZAC WOODSpecimen slightly ictericPROTHROMBIN TIME/APO0830-26-97 05:37:24 Test Item Value Reference Range Interpretation Comments PROTIME (BEAKER) 26.6 seconds 11.9-14.2 H (test code = 759) INR (BEAKER) (test 2.48 See_Comment [Automat ed message] code = 370) The system Agolo generated this result transmitted ref erence range: [...] CONCENTRATION Decreased (CELLAVISION)(BEAKER) (test code = 3438) Concrete Laborer ID - Cindy Gibson comments: Slide comments:CBC W/PLT COUNT & AUTO WSAOLJIWUODZ0847-53-15 09:40:43 Test Item Value Reference Range Interpretation [...] 0-0 (test code = 413) BASIC METABOLIC [id number] 07:22:45 Test Item Value Reference Range Interpretation [...] S NOT APPLICABLE FOR DIALYSIS PATIEN TS. Concrete Laborer ID - MARLON LSpecimen slightly nplakneNGAHXMTZCT2365-40-27 07:16:27 Test Item Value Reference Range Interpretation Comments PHOSPHORUS (BEAKER) (test code = 2.2 mg/dL 2.3-4.7 L 604) Concrete Laborer ID - MARLON LHEPATIC FUNCTION [id number] 07:16:27 Test Item Value Reference Range Interpretation [...] (test code = 17 U/L 6-55 347) Concrete Laborer ID - MARLON KENTpecimen slightly ictericBLOOD CLKHKQI4365-76-65 07:00:33 Test Item Value Reference Range Interpretation Comments CULTURE (BEAKER) (test No growth in 5 days code = 1095) PROTHROMBIN TIME/[id number] 06:15:38 Test Item Value Reference Range Interpretation Comments PROTIME (BEAKER) 25.1 seconds 11.9-14.2 H (test code = 759) INR (BEAKER) (test 2.31 See_Comment [Automat ed message] code = 370) The system Agolo generated this result transmitted ref erence range: <=5.90. The reference range was not used to int erpret this result as normal/abnormal . RECOMMENDED COUMADIN/WARFARIN INR THERAPY RANGESSTANDARD DOSE: 2.0 - 3.0 Includes: PROPHYLAXIS for venous thrombosis, systemic embolization; TREATMENT for venous thrombosis and/or pulmonary embolus.HIGH RISK: Target INR is 2.5-3.5 for patients with mechanical heart valves.Ova and Parasite Arvgvmosznj1786-54-16 08:26:13 Test Item Value Reference Range Interpretation Comments O&P Direct Smear (test No ova or parasites No ova or code = 18155-8) seen parasites seen ERJI (test code = REJI) See scanned report Lab Interpretation (test Normal code = 59851-3) [facility] and Parasite Phfmxcwfbmt5360-49-46 08:26:13 Test Item Value Reference Range Interpretation Comments O&P Direct Smear (test No ova or parasites No ova or code = 82299-3) seen parasites seen REJI (test code = REJI) See scanned report Lab Interpretation (test Normal code = 98501-2) [facility] and Parasite Ecubpsjzlwg8125-12-68 08:26:13 Test Item Value Reference Range Interpretation Comments O&P Direct Smear (test No ova or parasites No ova or code = 91687-4) seen parasites seen REJI (test code = REJI) See scanned report Lab Interpretation (test Normal code = 75261-3) [facility] and Parasite Mpdyiqhtfiu0897-07-84 08:26:13 Test Item Value Reference Range Interpretation Comments O&P Direct Smear (test No ova or parasites No ova or code = 16005-2) seen parasites seen REJI (test code = REJI) See scanned report Lab Interpretation (test Normal code = 01614-2) [facility] 07:29:32 Test Item Value Reference Range Interpretation Comments PHOSPHORUS (BEAKER) (test code = 1.5 mg/dL 2.3-4.7 LL 604) Concrete Laborer ID - ZAC WBASIC METABOLIC [id number] 07:09:27 Test Item Value Reference Range Interpretation [...] S NOT APPLICABLE FOR DIALYSIS PATIEN TS. Concrete Laborer ID - ZAC WOODSpecimekorin slightly ictericPROTHROMBIN TIME/[id number] 06:57:19 Test Item Value Reference Range Interpretation Comments PROTIME (BEAKER) 23.2 seconds 11.9-14.2 H (test code = 759) INR (BEAKER) (test 2.09 See_Comment [Automat ed message] code = 370) The system Agolo generated this result transmitted ref erence range: [...] CONCENTRATION Decreased (CELLAVISION)(BEAKER) (test code = 3438) Concrete Laborer ID - nabil Julian comments: Slide comments:UKWOMPLIHH1785-37-67 15:08:54 Test Item Value Reference Range Interpretation Comments PHOSPHORUS (BEAKER) (test code = 1.2 mg/dL 2.3-4.7 LL 604) Concrete Laborer ID - BSBASIC METABOLIC [id number] 15:04:30 Test Item Value Reference Range Interpretation [...] S NOT APPLICABLE FOR DIALYSIS PATIEN TS. Concrete Laborer ID - BSSpecimen slightly ictericHEPATIC FUNCTION [id number] 15:02:35 Test Item Value Reference Range Interpretation [...] (test code = 17 U/L 6-55 347) Concrete Laborer ID - BSSpecimen slightly ictericPROTHROMBIN TIME/[id number] 14:50:10 Test Item Value Reference Range Interpretation Comments PROTIME (BEAKER) 24.9 seconds 11.9-14.2 H (test code = 759) INR (BEAKER) (test 2.28 See_Comment [Automat ed message] code = 370) The system Agolo generated this result transmitted ref erence range: <=5.90. The reference range was not used to int erpret this result as normal/abnormal . RECOMMENDED COUMADIN/WARFARIN INR THERAPY RANGESSTANDARD DOSE: 2.0 - 3.0 Includes: PROPHYLAXIS for venous thrombosis, systemic embolization; TREATMENT for venous thrombosis and/or pulmonary embolus.HIGH RISK: Target INR is 2.5-3.5 for patients with mechanical heart valves.CBC W/PLT COUNT & AUTO [id number] 14:44:53 Test Item Value Reference Range Interpretation [...] (test code = 413) Clostridium difficile GDH Dwshj4332-43-98 21:23:26 Test Item Value Reference Range Interpretation Comments C. Difficle Toxin Positive Negative A (test code = 0598123790) C. Difficile GDH Positive Negative A Confirms Antigen (test code = Clostri dium 2314220363) difficile-assoc ia barron infection.First line therapy - oral Vancomycin . Continue enteri c isolation until 72 hours after treatment is discontinued an d symptoms have resolved. REJI (test code = Testing performed REJI) by [employer] Rapid Cassette Assay. For GDH, published sensitivity of the assay is 98.7% compared to cytotoxicity testing. For Toxin AB, published sensitivity is 87.8% and specificity 99.4% compared to cytotoxicity testing.Verificati on of kit performance was done by the [facility] Microbiology Lab prior to clinical use. Lab Interpretation Abnormal (test code = 55592-5) [facility] Enrvw3651-73-43 21:23:26 Test Item Value Reference Range Interpretation Comments C. Difficle Toxin Positive Negative A (test code = 8896651395) C. Difficile GDH Positive Negative A Confirms Antigen (test code = Clostri dium 1939153390) difficile-assoc ia barron infection.First line therapy - [...] of kit performance was done by the [facility] Microbiology Lab prior to clinical use. Lab Interpretation Abnormal (test code = 01447-1) [facility] Phrlj9660-92-77 21:23:26 Test Item Value Reference Range Interpretation Comments C. Difficle Toxin Positive Negative A (test code = 0044145909) C. Difficile GDH Positive Negative A Confirms Antigen (test code = Clostri dium 6186351385) difficile-assoc ia barron infection.First line therapy - [...] of kit performance was done by the [facility] Microbiology Lab prior to clinical use. Lab Interpretation Abnormal (test code = 21630-9) [facility] Putnc5445-37-42 21:23:26 Test Item Value Reference Range Interpretation Comments C. Difficle Toxin Positive Negative A (test code = 8657125383) C. Difficile GDH Positive Negative A Confirms Antigen (test code = Clostri dium 2808274831) difficile-assoc ia barron infection.First line therapy - [...] of kit performance was done by the [facility] Microbiology Lab prior to clinical use. Lab Interpretation Abnormal (test code = 43551-1) [facility]. DIFFICILE GDH [id number] 21:23:26 Test Item Value Reference Range Interpretation Comments CDT TOXIN (test code Positive Negative A = 8763950797) CDT GDH ANTIGEN Positive Negative A Confirms Maria Esther stridium (test code = difficile-assoc iated 6817004325) infection.First line therapy - oral Vancomycin. Con [...] of kit performance was done by the [facility] prior to clinical use.CT, CHEST, WITH UTGAJPXA4029-95-08 10:14:00Unlisted Reason for Exam - Click Yes and Enter Reason Below->No [facility] 1960 Sex: [...] Quentin Sims MDReport Verified Date/Time: 09/04/2021 10:14:08 [facility] [place] [id number] 10:14:00Unlisted Reason for Exam - Click Yes and Enter Reason Below->No Is this for enterography?->YesWill this procedure require oral contrast?->Yes [facility] 1960 Sex: [...] CONCENTRATION Decreased (CELLAVISION)(BEAKER) (test code = 3438) Concrete Laborer ID - michaela Cutler comments: Slide comments:CBC W/PLT COUNT & AUTO MNUIWRQABJOZ7469-73-52 07:25:32 Test Item Value Reference Range Interpretation [...] /100 WBC 0-0 (test code = 413) IEFHVZRNAU5223-05-26 06:26:19 Test Item Value Reference Range Interpretation Comments PHOSPHORUS (BEAKER) (test code = 1.5 mg/dL 2.3-4.7 LL 604) Concrete Laborer ID - ZAC WComprehensive metabolic hurax3757-19-23 06:18:30 Test Item Value Reference Range Interpretation Comments Protein, Total (test 4.7 See_Comment L [Autom ated code = 2885-2) message] The system which generated this result transmitted reference range : 6.0 - 8.3 gm/dL . The reference range was not used to interpr et this result as normal/abnormal . Albumin (test code = 2.7 g/dL 3.5-5.0 L 18746-8) Alkaline Phosphatase 85 U/L 40-150 (test code [...] (test code = 7.3 mg/dL 8.4-10.2 L 33219-7) AST (test code = 28 U/L 5-34 1920-8) ALT (test code = 14 U/L 6-55 1742-6) EGFR (test code = 53 mL/min/1.[place] [address]-2) NOT ACCURATE CREATININE CLEARANCE IN PREDICTING GLOMERULAR FILTRATION RATE . ESTIMATED GFR I S NOT APPLICABLE FOR DIALYSIS PATIENTS. REJI (test code = REJI) Concrete Laborer ID Ajay Rosales slightly icteric Lab Interpretation Abnormal (test code = 13673-5) [facility] qmqbg5690-96-03 06:18:30 Test Item Value Reference Range Interpretation Comments Protein, Total (test 4.7 See_Comment L [Autom ated code = 2885-2) message] The system which generated this result transmitted reference range : 6.0 - 8.3 gm/dL . The reference range was not used to interpr et this result as normal/abnormal . Albumin (test code = 2.7 g/dL 3.5-5.0 L 50781-1) Alkaline Phosphatase 85 U/L 40-150 (test code [...] (test code = 7.3 mg/dL 8.4-10.2 L 91005-3) AST (test code = 28 U/L 5-34 1920-8) ALT (test code = 14 U/L 6-55 1742-6) EGFR (test code = 53 mL/min/1.[place] [address]-9) NOT ACCURATE CREATININE CLEARANCE IN PREDICTING GLOMERULAR FILTRATION RATE . ESTIMATED GFR I S NOT APPLICABLE FOR DIALYSIS PATIENTS. REJI (test code = REJI) Concrete Laborer ID - ZAC Rosales slightly icteric Lab Interpretation Abnormal (test code = 99596-5) [facility] [id number] 06:18:30 Test Item Value Reference Range Interpretation Comments Protein, Total (test 4.7 See_Comment L [Autom ated code = 2885-2) message] The system which generated this result transmitted reference range : 6.0 - 8.3 gm/dL . The reference range was not used to interpr et this result as normal/abnormal . Albumin (test code = 2.7 g/dL 3.5-5.0 L 22037-3) Alkaline Phosphatase 85 U/L 40-150 (test code [...] (test code = 7.3 mg/dL 8.4-10.2 L 81332-9) AST (test code = 28 U/L 5-34 1920-8) ALT (test code = 14 U/L 6-55 1742-6) EGFR (test code = 53 mL/min/1.[place] [address]-9) NOT ACCURATE CREATININE CLEARANCE IN PREDICTING GLOMERULAR FILTRATION RATE . ESTIMATED GFR I S NOT APPLICABLE FOR DIALYSIS PATIENTS. REJI (test code = REJI) Concrete Laborer ID - ZAC Rosales slightly icteric Lab Interpretation Abnormal (test code = 51538-7) [facility] [id number] 06:18:30 Test Item Value Reference Range Interpretation Comments Protein, Total (test 4.7 See_Comment L [Autom ated code = 2885-2) message] The system which generated this result transmitted reference range : 6.0 - 8.3 gm/dL . The reference range was not used to interpr et this result as normal/abnormal . Albumin (test code = 2.7 g/dL 3.5-5.0 L 14380-6) Alkaline Phosphatase 85 U/L 40-150 (test code [...] (test code = 7.3 mg/dL 8.4-10.2 L 44900-8) AST (test code = 28 U/L 5-34 1920-8) ALT (test code = 14 U/L 6-55 1742-6) EGFR (test code = 53 mL/min/1.73 [place] [address]-8) NOT ACCURATE CREATININE CLEARANCE IN PREDICTING GLOMERULAR FILTRATION RATE . ESTIMATED GFR I S NOT APPLICABLE FOR DIALYSIS PATIENTS. REJI (test code = REJI) Concrete Laborer ID - ZAC WSpecimen slightly icteric Lab Interpretation Abnormal (test code = 61653-4) [facility] METABOL[facility] [id number] 06:18:30 Test Item Value Reference Range Interpretation [...] S NOT APPLICABLE FOR DIALYSIS PATIEN TS. Concrete Laborer ID - ZAC WSpecimen slightly [id number] 06:13:05 Test Item Value Reference Range Interpretation Comments MAGNESIUM (BEAKER) (test code = 2.3 mg/dL 1.6-2.6 627) Concrete Laborer ID - ZAC W(CELLAVISION MANUAL DIFF)2021-09-03 14:33:56 [...] CONCENTRATION Decreased (CELLAVISION)(BEAKER) (test code = 3438) Concrete Laborer ID - Claudine Rios comments: Slide comments:CBC W/PLT COUNT & AUTO [id number] 14:33:55 Test Item Value Reference Range Interpretation [...] (test code = 413) Hepatitis B surface [id number] 13:30:11 Test Item Value Reference Range Interpretation Comments Hep B S Ab (test code <8.0 See_Comment [Auto mated = 45033-4) message] The system which generated this result transmit barron reference range : <8.0 mIU/mL. Th e reference range was not used to interpret this result as normal/abnormal . REJI (test code = REJI) Concrete Laborer ID - PIAYA L Lab Interpretation Normal (test code = 43866-6) [facility] surface zhfakhpv6257-08-74 13:30:11 Test Item Value Reference Range Interpretation Comments Hep B S Ab (test code <8.0 See_Comment [Auto mated = 71387-8) message] The system which generated this result transmit barron reference range : <8.0 mIU/mL. Th e reference range was not used to interpret this result as normal/abnormal . REJI (test code = REJI) Concrete Laborer ID - PIAYA L Lab Interpretation Normal (test code = 03785-3) [facility] HospitalHes[facility] elizabeth florencetis B surface adsvhcmk8398-91-16 13:30:11 Test Item Value Reference Range Interpretation Comments Hep B S Ab (test code <8.0 See_Comment [Auto mated = 66871-0) message] The system which generated this result transmit barron reference range : <8.0 mIU/mL. Th e reference range was not used to interpret this result as normal/abnormal . REJI (test code = REJI) Concrete Laborer ID - PIAYA L Lab Interpretation Normal (test code = 70402-1) [facility] Hospital[facility] surface [id number] 13:30:11 Test Item Value Reference Range Interpretation Comments Hep B S Ab (test code <8.0 See_Comment [Auto mated = 19857-7) message] The system which generated this result transmit barron reference range : <8.0 mIU/mL. Th e reference range was not used to interpret this result as normal/abnormal . REJI (test code = REJI) Concrete Laborer ID - PIAYA L Lab Interpretation Normal (test code = 67523-7) [facility] SURFACE [id number] 13:30:11 Test Item Value Reference Range Interpretation Comments HEPATITIS B SURFACE ANTIBODY < mIU/mL <8.0 (BEAKER) (test code = 647) Concrete Laborer ID - PIAYA LHepatitis A antibody, [id number] 13:23:53 Test Item Value Reference Range Interpretation Comments Hep A IgG (test code = Nonreactive Nonreactive 65846-8) REJI (test code = REJI) Concrete Laborer ID - PIAYA L Lab Interpretation (test Normal code = 67011-7) [facility] antibody, [id number] 13:23:53 Test Item Value Reference Range Interpretation Comments Hep A IgG (test code = Nonreactive Nonreactive 89671-3) REJI (test code = REJI) Concrete Laborer ID - PIAYA L Lab Interpretation (test Normal code = 15880-7) [facility] antibody, [id number] 13:23:53 Test Item Value Reference Range Interpretation Comments Hep A IgG (test code = Nonreactive Nonreactive 99666-1) REJI (test code = REJI) Concrete Laborer ID - PIAYA L Lab Interpretation (test Normal code = 46534-1) [facility] antibody, [id number] 13:23:53 Test Item Value Reference Range Interpretation Comments Hep A IgG (test code = Nonreactive Nonreactive 90067-8) REJI (test code = REJI) Concrete Laborer ID - PIAYA L Lab Interpretation (test Normal code = 27112-7) [facility], [id number] 13:23:53 Test Item Value Reference Range Interpretation Comments HEPATITIS A IGG ANTIBODY (BEAKER) Nonreactive Nonreactive (test code = 2797) Concrete Laborer ID - PIAYA LHepatitis B core antibody, [id number] 13:23:52 Test Item Value Reference Range Interpretation Comments Hep B Core Total Ab Nonreactive Nonreactive (test code = 45602-0) REJI (test code = REJI) Concrete Laborer ID - PIAYA L Lab Interpretation (test Normal code = 19985-3) [facility] C irdlwbjv4949-78-53 13:23:52 Test Item Value Reference Range Interpretation Comments Hepatitis C Ab (test Nonreactive Nonreactive code = 36946-4) REJI (test code = REJI) Concrete Laborer ID - PIAYA L Lab Interpretation (test Normal code = 98883-6) [facility] B core antibody, [id number] 13:23:52 Test Item Value Reference Range Interpretation Comments Hep B Core Total Ab Nonreactive Nonreactive (test code = 92019-9) REJI (test code = REJI) Concrete Laborer ID - PIAYA L Lab Interpretation (test Normal code = 00471-6) [facility] core antibody, [id number] 13:23:52 Test Item Value Reference Range Interpretation Comments Hep B Core Total Ab Nonreactive Nonreactive (test code = 32994-6) REJI (test code = REJI) Concrete Laborer ID - PIAYA L Lab Interpretation (test Normal code = 62264-1) [facility] B core antibody, [id number] 13:23:52 Test Item Value Reference Range Interpretation Comments Hep B Core Total Ab Nonreactive Nonreactive (test code = 06434-7) REJI (test code = REJI) Concrete Laborer ID - PIAYA L Lab Interpretation (test Normal code = 20834-9) [facility] C [id number] 13:23:52 Test Item Value Reference Range Interpretation Comments HEPATITIS C ANTIBODY (BEAKER) Nonreactive Nonreactive (test code = 367) Concrete Laborer ID - MARLON LHEPATITIS B CORE ANTIBODY, [id number] 13:23:52 Test Item Value Reference Range Interpretation Comments HEPATITIS B CORE TOTAL ANTIBODY Nonreactive Nonreactive (BEAKER) (test code = 497) Concrete Laborer ID - MARLON LHepatitis B surface fpxwzco1208-31-43 13:23:51 Test Item Value Reference Range Interpretation Comments HBsAg Screen (test code Nonreactive Nonreactive = 5195-3) REJI (test code = REJI) Specimen is considered negative for HBsAg. Lab Interpretation (test Normal code = 25635-0) [facility] HospitalHEPATITIS B SURFACE [id number] 13:23:51 Test Item Value Reference Range Interpretation [...] S NOT APPLICABLE FOR DIALYSIS PATIEN TS. Concrete Laborer ID - MARLON LSpecimen slightly [id number] 12:58:51 Test Item Value Reference Range Interpretation Comments MAGNESIUM (BEAKER) (test code = 2.1 mg/dL 1.6-2.6 627) Concrete Laborer ID - PIRADHA YMCYJBNPMDY5197-49-03 12:58:51 Test Item Value Reference Range Interpretation Comments PHOSPHORUS (BEAKER) (test code = 2.3 mg/dL 2.3-4.7 604) Concrete Laborer ID - MARLON LPROTHROMBIN TIME/PEA3608-26-65 12:56:09 Test Item Value Reference Range Interpretation Comments PROTIME (BEAKER) 23.4 seconds 11.9-14.2 H (test code = 759) INR (BEAKER) (test 2.10 See_Comment [Automat ed message] code = 370) The system [employer] generated this result transmitted ref erence range: <=5.90. The reference range was not used to int erpret this result as normal/abnormal . RECOMMENDED COUMADIN/WARFARIN INR THERAPY RANGESSTANDARD DOSE: 2.0 - 3.0 Includes: PROPHYLAXIS for venous thrombosis, systemic embolization; TREATMENT for venous thrombosis and/or pulmonary embolus.HIGH RISK: Target INR is 2.5-3.5 for patients with mechanical heart valves.Urine [id number] 12:15:06 Test Item Value Reference Range Interpretation Comments Result (test code = 6463-4) [facility] [id number] 12:15:06 Test Item Value Reference Range Interpretation Comments Result (test code = 6463-4) No growth [facility] [id number] 12:15:06 Test Item Value Reference Range Interpretation Comments Result (test code = 6463-4) No growth [facility] Center[facility] lddbntu0494-78-09 12:15:06 Test Item Value Reference Range Interpretation Comments Result (test code = 6463-4) No growth [facility] Path[facility] Profile by PCR -ID [id number] 12:43:22 Test Item Value Reference Range Interpretation Comments CAMPYLOBACTER (PCR) Not detected Not detected (test code = 23995-4) PLESIOMONAS SHIGELLOIDES Not detected Not detected (PCR) (test code = 29052-0) SALMONELLA (PCR) (test Not detected Not detected code = 25756-2) YERSINIA ENTEROCOLITICA Not detected Not detected (PCR) (test code = 17987-4) VIBRIO CHOLERAE (PCR) Not detected Not detected (test code = 39724-5) ENTEROAGGREGATIVE E. Not detected Not detected COLI (EAEC) BY PCR (test code = 91240-7) ENTEROPATHOGENIC E. COLI Not detected Not detected (EPEC) BY PCR (test code = 41435-5) ENTEROTOXIGENIC E. COLI Not detected Not detected (ETEC) LT/ST BY PCR (test code = 04165-3) SHIGA-LIKE Not detected Not detected TOXIN-PRODUCING E. COLI (STEC) STX1/STX2 (test code = 20697-0) E. COLI O157 (PCR) (test code = 75307-2) SHIGELLA/ENTEROINVASIVE Not detected Not detected E. COLI (EIEC) BY PCR (test code = 39175-1) CRYPTOSPORIDIUM (PCR) Not detected Not detected (test code = 29222-1) CYCLOSPORA CAYETANENSIS Not detected Not detected (PCR) (test code = 61314-2) ENTAMOEBA HISTOLYTICA Not detected Not detected (PCR) (test code = 84074-3) GIARDIA LAMBLIA (PCR) Not detected Not detected (test code = 48778-3) ADENOVIRUS F 40/41 (PCR) Not detected Not detected (test code = 50270-2) ASTROVIRUS (PCR) (test Not detected Not detected code = 32515-8) NOROVIRUS GI/GII (PCR) Not detected Not detected (test code = 28571-4) ROTAVIRUS A (PCR) (test Not detected Not detected code = 70416-0) SAPOVIRUS (I, II, IV, V) Not detected Not detected BY PCR (test code = 64868-6) VIBRIO Not detected Not detected (PARAHAEMOLYTICUS, VULNIFICUS) (test code = 36337-9) ERJI (test code = REJI) Other viruses, parasites and bacteria not targeted by this PCR panel cannot be excluded; therefore clinical correlation and follow up of serology, culture results, and other molecular studies is required. The results are not intended to be used as the sole means for clinical diagnosis or patient management decisions. This sample was tested at the [facility] using the [employer] Gastrointestinal Panel. It is FDA cleared and has been verified and approved by the [facility] for clinical use. This laboratory is CLIA-certified and [employer] ([employer])-accredited to perform high complexity testing. [facility] -ID [id number] 12:43:22 Test Item Value Reference Range Interpretation Comments CAMPYLOBACTER PCR (test Not detected Not detected code = 78102-3) PLESIOMONAS SHIGELLOIDES Not detected Not detected (PCR) (test code = 34446-1) SALMONELLA (PCR) (test Not detected Not detected code = 92190-9) YERSINIA ENTEROCOLITICA Not detected Not detected (PCR) (test code = 73159-3) VIBRIO CHOLERAE (PCR) Not detected Not detected (test code = 43956-6) ENTEROAGGREGATIVE E. Not detected Not detected COLI (EAEC) BY PCR (test code = 74603-5) ENTEROPATHOGENIC E. COLI Not detected Not detected (EPEC) BY PCR (test code = 33257-9) ENTEROTOXIGENIC E. COLI Not detected Not detected (ETEC) LT/ST BY PCR (test code = 50757-7) SHIGA-LIKE Not detected Not detected TOXIN-PRODUCING E. COLI (STEC) STX1/STX2 (test code = 39220-1) E. COLI O157 (PCR) (test code = 89295-3) SHIGELLA/ENTEROINVASIVE Not detected Not detected E. COLI (EIEC) BY PCR (test code = 56819-0) CRYPTOSPORIDIUM (PCR) Not detected Not detected (test code = 70690-2) CYCLOSPORA CAYETANENSIS Not detected Not detected (PCR) (test code = 56570-6) ENTAMOEBA HISTOLYTICA Not detected Not detected (PCR) (test code = 35048-3) GIARDIA LAMBLIA (PCR) Not detected Not detected (test code = 75528-0) ADENOVIRUS F 40/41 (PCR) Not detected Not detected (test code = 58704-4) ASTROVIRUS (PCR) (test Not detected Not detected code = 05023-8) NOROVIRUS GI/GII (PCR) Not detected Not detected (test code = 91314-4) ROTAVIRUS A (PCR) (test Not detected Not detected code = 71681-1) SAPOVIRUS (I, II, IV, V) Not detected Not detected BY PCR (test code = 44158-7) VIBRIO Not detected Not detected (PARAHAEMOLYTICUS, VULNIFICUS) (test code = 19302-7) REJI (test code = REJI) Other viruses, parasites and bacteria not targeted by this PCR panel cannot be excluded; therefore clinical correlation and follow up of serology, culture results, and other molecular studies is required. The results are not intended to be used as the sole means for clinical diagnosis or patient management decisions. This sample was tested at the [facility] Diagnostics [facility] using the [employer] Gastrointestinal Panel. It is FDA cleared and has been verified and approved by the [facility] for clinical use. This laboratory is CLIA-certified and [employer] ([employer])-accredited to perform high complexity testing. [facility] -ID [id number] 12:43:22 Test Item Value Reference Range Interpretation Comments CAMPYLOBACTER PCR (test Not detected Not detected code = 27094-9) PLESIOMONAS SHIGELLOIDES Not detected Not detected (PCR) (test code = 32620-1) SALMONELLA (PCR) (test Not detected Not detected code = 85061-9) YERSINIA ENTEROCOLITICA Not detected Not detected (PCR) (test code = 76818-8) VIBRIO CHOLERAE (PCR) Not detected Not detected (test code = 91280-5) ENTEROAGGREGATIVE E. Not detected Not detected COLI (EAEC) BY PCR (test code = 55575-2) ENTEROPATHOGENIC E. COLI Not detected Not detected (EPEC) BY PCR (test code = 29587-1) ENTEROTOXIGENIC E. COLI Not detected Not detected (ETEC) LT/ST BY PCR (test code = 52039-2) SHIGA-LIKE Not detected Not detected TOXIN-PRODUCING E. COLI (STEC) STX1/STX2 (test code = 69911-7) E. COLI O157 (PCR) (test code = 32811-5) SHIGELLA/ENTEROINVASIVE Not detected Not detected E. COLI (EIEC) BY PCR (test code = 14036-0) CRYPTOSPORIDIUM (PCR) Not detected Not detected (test code = 41163-5) CYCLOSPORA CAYETANENSIS Not detected Not detected (PCR) (test code = 34213-7) ENTAMOEBA HISTOLYTICA Not detected Not detected (PCR) (test code = 22844-1) GIARDIA LAMBLIA (PCR) Not detected Not detected (test code = 37099-0) ADENOVIRUS F 40/41 (PCR) Not detected Not detected (test code = 12796-8) ASTROVIRUS (PCR) (test Not detected Not detected code = 13450-8) NOROVIRUS GI/GII (PCR) Not detected Not detected (test code = 69730-2) ROTAVIRUS A (PCR) (test Not detected Not detected code = 99859-8) SAPOVIRUS (I, II, IV, V) Not detected Not detected BY PCR (test code = 86737-7) VIBRIO Not detected Not detected (PARAHAEMOLYTICUS, VULNIFICUS) (test code = 93592-9) REJI (test code = REJI) Other viruses, parasites and bacteria not targeted by this PCR panel cannot be excluded; therefore clinical correlation and follow up of serology, culture results, and other molecular studies is required. The results are not intended to be used as the sole means for clinical diagnosis or patient management decisions. This sample was tested at the [facility] using the [employer] Gastrointestinal Panel. It is FDA cleared and has been verified and approved by the [facility] for clinical use. This laboratory is CLIA-certified and [employer] ([employer])-accredited to perform high complexity testing. [facility] -ID [id number] 12:43:22 Test Item Value Reference Range Interpretation Comments CAMPYLOBACTER PCR (test Not detected Not detected code = 84719-4) PLESIOMONAS SHIGELLOIDES Not detected Not detected (PCR) (test code = 32562-5) SALMONELLA (PCR) (test Not detected Not detected code = 06984-2) YERSINIA ENTEROCOLITICA Not detected Not detected (PCR) (test code = 48808-2) VIBRIO CHOLERAE (PCR) Not detected Not detected (test code = 11181-3) ENTEROAGGREGATIVE E. Not detected Not detected COLI (EAEC) BY PCR (test code = 09929-5) ENTEROPATHOGENIC E. COLI Not detected Not detected (EPEC) BY PCR (test code = 26965-7) ENTEROTOXIGENIC E. COLI Not detected Not detected (ETEC) LT/ST BY PCR (test code = 33246-2) SHIGA-LIKE Not detected Not detected TOXIN-PRODUCING E. COLI (STEC) STX1/STX2 (test code = 30787-8) E. COLI O157 (PCR) (test code = 21719-7) SHIGELLA/ENTEROINVASIVE Not detected Not detected E. COLI (EIEC) BY PCR (test code = 52377-7) CRYPTOSPORIDIUM (PCR) Not detected Not detected (test code = 79152-2) CYCLOSPORA CAYETANENSIS Not detected Not detected (PCR) (test code = 20633-3) ENTAMOEBA HISTOLYTICA Not detected Not detected (PCR) (test code = 13053-8) GIARDIA LAMBLIA (PCR) Not detected Not detected (test code = 77145-2) ADENOVIRUS F 40/41 (PCR) Not detected Not detected (test code = 39864-6) ASTROVIRUS (PCR) (test Not detected Not detected code = 48409-0) NOROVIRUS GI/GII (PCR) Not detected Not detected (test code = 25575-0) ROTAVIRUS A (PCR) (test Not detected Not detected code = 34660-2) SAPOVIRUS (I, II, IV, V) Not detected Not detected BY PCR (test code = 28267-5) VIBRIO Not detected Not detected (PARAHAEMOLYTICUS, VULNIFICUS) (test code = 86755-7) REJI (test code = REJI) Other viruses, parasites and bacteria not targeted by this PCR panel cannot be excluded; therefore clinical correlation and follow up of serology, culture results, and other molecular studies is required. The results are not intended to be used as the sole means for clinical diagnosis or patient management decisions. This sample was tested at the [facility]ostics [facility] using the [employer] Gastrointestinal Panel. It is FDA cleared and has been verified and approved by the [facility] for clinical use. This laboratory is CLIA-certified and [employer] (CAP)-accredited to perform high complexity testing. [facility] BY [id number] 12:43:22 Test Item Value Reference Range Interpretation [...] Not detected BY PCR (test code = 6837033) ENTEROPATHOGENIC E. COLI (EPEC) Not detected Not detected BY PCR (test code = 1020669) ENTEROTOXIGENIC E. COLI (ETEC) Not detected Not detected LT/ST BY PCR (test code = 4101436) SHIGA-LIKE TOXIN-PRODUCING E. Not detected Not detected COLI (STEC) STX1/STX2 (test code = 4936264) E. COLI O157 (PCR) (test code = 7391077) SHIGELLA/ENTEROINVASIVE E. COLI Not detected Not detected [...] Not detected Not detected (test code = 9514977) VIBRIO (PARAHAEMOLYTICUS, Not detected Not detected VULNIFICUS) (test code = ) Other viruses, parasites and bacteria not targeted by this PCR panel cannot be excluded; therefore clinical correlation and follow up of serology, culture results, and other molecular studies is required. The results are not intended to be used as the sole means for clinical diagnosis or patient management decisions. This sample was tested at the [facility] using the [employer] Gastrointestinal Panel. It is FDA cleared and has been verified and approved by the [facility]ostics [facility] for clinical [...] CONCENTRATION Decreased (CELLAVISION)(BEAKER) (test code = 3438) Concrete Laborer ID - Phyllis comments: Slide comments:CBC W/PLT COUNT & AUTO [id number] 08:49:57 Test Item Value Reference Range Interpretation [...] (test code = 413) Vitamin B12 and [id number] 07:20:11 Test Item Value Reference Range Interpretation Comments Vitamin B12 (test 1116 pg/mL 213-816 H code = 2132-9) Folate (test code = 3.50 ng/mL See_Comment L [Automa barron 2284-8) message] The system which generated this result transmit barron reference range : >=7.00. The reference range was not used to interpret this result as normal/abnormal . REJI (test code = REJI) Concrete Laborer ID - SHAQUILLE Reynolds Lab Interpretation Abnormal (test code = 84241-1) [facility] and Knpyvv6773-43-45 07:20:11 Test Item Value Reference Range Interpretation Comments Vitamin B12 (test 1116 pg/mL 213-816 H code = 2132-9) Folate (test code = 3.50 ng/mL See_Comment L [Automa barron 2284-8) message] The system which generated this result transmit barron reference range : >=7.00. The reference range was not used to interpret this result as normal/abnormal . REJI (test code = REJI) Concrete Laborer ID - SHAQUILLE Reynolds Lab Interpretation Abnormal (test code = 37493-3) [facility] and Pfrbnz4217-22-76 07:20:11 Test Item Value Reference Range Interpretation Comments Vitamin B12 (test 1116 pg/mL 213-816 H code = 2132-9) Folate (test code = 3.50 ng/mL See_Comment L [Automa barron 2284-8) message] The system which generated this result transmit barron reference range : >=7.00. The reference range was not used to interpret this result as normal/abnormal . REJI (test code = REJI) Concrete Laborer ID - SHAQUILLE Reynolds Lab Interpretation Abnormal (test code = 53144-4) [facility] and [id number] 07:20:11 Test Item Value Reference Range Interpretation Comments Vitamin B12 (test 1116 pg/mL 213-816 H code = 2132-9) Folate (test code = 3.50 ng/mL See_Comment L [Automa barron 2284-8) message] The system which generated this result transmit barron reference range : >=7.00. The reference range was not used to interpret this result as normal/abnormal . REJI (test code = REJI) Concrete Laborer ID - SHAQUILLE Reynolds Lab Interpretation Abnormal (test code = 21224-5) [facility] AND [id number] 07:20:11 Test Item Value Reference Range Interpretation Comments VITAMIN B12 (BEAKER) 1116 pg/mL 213-816 H (test code = 774) FOLATE (BEAKER) 3.50 ng/mL See_Comment L [Automated message] (test code = 362) The system which generated this result transmitted ref erence range: >=7.00. The reference range was not used to interpr et this result as normal/abnormal . Concrete Laborer ID - SHAQUILLE OMPREHENSIVE METABOLIC [id number] 06:57:06 Test Item Value Reference Range Interpretation [...] S NOT APPLICABLE FOR DIALYSIS PATIEN TS. Concrete Laborer GINA CORBIN MSpecimen slightly ictericC-Reactive Dfhzsyf2612-76-76 06:55:26 Test Item Value Reference Range Interpretation Comments CRP (test code = 676) 4.64 mg/dL 0.00-0.50 H REJI (test code = REJI) Concrete Laborer GINA Reynolds Lab Interpretation (test Abnormal code = 97325-7) [facility]20[facility] 06:55:26 Test Item Value Reference Range Interpretation Comments PHOSPHORUS (BEAKER) (test code = 1.8 mg/dL 2.3-4.7 L 604) Concrete Laborer GINA CORBIN MC-REACTIVE [id number] 06:55:26 Test Item Value Reference Range Interpretation Comments C-REACTIVE PROTEIN (BEAKER) (test 4.64 mg/dL 0.00-0.50 H code = 676) Concrete Laborer GINA CORBIN [id number] 06:55:25 Test Item Value Reference Range Interpretation Comments MAGNESIUM (BEAKER) (test code = 2.3 mg/dL 1.6-2.6 627) Concrete Laborer ID Ajay Orozcoon, TIBC, % sat. (without ferritin)2021-09-02 06:44:00 Test Item Value Reference Range Interpretation Comments Iron (test code = 2498-4) 28.0 ug/dL 40.0-160.0 L TIBC (test code = 2500-7) 243 ug/dL 250-450 L Iron % Saturation (test 12 % 20-55 L code = 2502-3) REJI (test code = REJI) Concrete Laborer ID Ajay CORBIN Lab Interpretation (test Abnormal code = 28254-6) [facility], TIBC, % sat. (without ferritin)2021-09-02 06:44:00 Test Item Value Reference Range Interpretation Comments Iron (test code = 2498-4) 28.0 ug/dL 40.0-160.0 L TIBC (test code = 2500-7) 243 ug/dL 250-450 L Iron % Saturation (test 12 % 20-55 L code = 2502-3) REJI (test code = REJI) Concrete Laborer ID Ajay Reynlods Lab Interpretation (test Abnormal code = 87763-4) [facility], TIBC, % sat. (without ferritin)2021-09-02 06:44:00 Test Item Value Reference Range Interpretation Comments Iron (test code = 2498-4) 28.0 ug/dL 40.0-160.0 L TIBC (test code = 2500-7) 243 ug/dL 250-450 L Iron % Saturation (test 12 % 20-55 L code = 2502-3) REJI (test code = REJI) Concrete Laborer ID Ajay CORBIN M Lab Interpretation (test Abnormal code = 16880-4) [facility], TIBC, % sat. (without ferritin)2021-09-02 06:44:00 Test Item Value Reference Range Interpretation Comments Iron (test code = 2498-4) 28.0 ug/dL 40.0-160.0 L TIBC (test code = 2500-7) 243 ug/dL 250-450 L Iron % Saturation (test 12 % 20-55 L code = 2502-3) REJI (test code = REJI) Concrete Laborer ID - SHAQUILLE Reynolds Lab Interpretation (test Abnormal code = 50773-8) [facility] ([facility] FERRITIN)2021-09-02 06:44:00 Test Item Value Reference Range Interpretation Comments IRON (BEAKER) (test code = 547) 28.0 ug/dL 40.0-160.0 L TOTAL IRON BINDING CAPACITY 243 ug/dL 250-450 L (BEAKER) (test code = 769) IRON % SATURATION (2) (BEAKER) 12 % 20-55 L (test code = 2590) Concrete Laborer ID - SHAQUILLE MCT, BRAIN, WITHOUT [id number] 03:54:00Unlisted Reason for Exam - Click Yes and Enter Reason Below->No [facility] 1960 Sex: [...] MDReport Verified Date/Time: 09/02/2021 03:54:37 U/S, ABDOMINAL, [id number] 03:38:00 Abdomen limited area? Add comment if clarification is needed.->Right upper quadrantReason for exam:->evaluate biliary tree/liver [facility] : 1960 Sex: FFINAL REPORT [...] setting of hepatic steatosis. Signed: Dulce Maria Saleseport Verified Date/Time: 09/02/2021 03:38:29 Urinalysis w/Microscopic + Reflex to Culture 2021-09-02 02:29:12 Test Item Value Reference Range Interpretation Comments Color, UA (test code Brown = 5778-6) Clarity, UA (test Hazy code = 5767-9) Specific [place], UA 1.029 1.001-1.035 (test code = 5811-5) pH, UA (test code = 6.0 5.0-8.0 5803-2) Protein, UA (test 30 mg/dL Negative A code = 07630-4) Glucose, UA (test Negative Negative code = 365) Ketones, UA (test Negative Negative code = 2514-8) Bilirubin, UA (test Negative Negative code = 84428-3) Blood, UA (test code Small Negative A = 17318-5) Nitrite, UA (test Negative Negative code = 5802-4) Leukocytes, UA (test Moderate Negative A code = 5799-2) Urobilinogen, UA 0.2 mg/dL 0.2-1.0 (test code = 54194-3) RBC, UA (test code = 18 See_Comment [Autom ated 54825-6) message] The system which generated this result [...] . Bacteria, UA (test Rare code = 51835-7) Mucus (test code = Moderate 8247-9) Squam Epithel, UA 2 See_Comment [Automate d (test code = 88589-1) messag e] The system which generated this result transmit barron reference range : /HPF. The reference range was not used to interpret this result as normal/abnormal . Hyaline Casts, UA 3 See_Comment [Automate d (test code = 15230-0) messag e] The system which generated this result transmit barron reference range : /LPF. The reference range was not used to interpret this result as normal/abnormal . Crystals, Urine (test None Seen code = 30195-9) Amorphous Crystals Rare (test code = 07845-9) Specimen Source (test code = 2795) REJI (test code = REJI) Concrete Laborer ID - [auto]Concrete Laborer ID - tech Lab Interpretation Abnormal (test code = 76615-3) [facility] Reflex [facility] Culture 2021-09-02 02:29:12 Test Item Value Reference Range Interpretation Comments Color, UA (test code Brown = 5778-6) Clarity, UA (test Hazy code = 5767-9) Specific [place], UA 1.029 1.001-1.035 (test code = 5811-5) pH, UA (test code = 6.0 5.0-8.0 5803-2) Protein, UA (test 30 mg/dL Negative A code = 23462-1) Glucose, UA (test Negative Negative code = 365) Ketones, UA (test Negative Negative code = 2514-8) Bilirubin, UA (test Negative Negative code = 67533-3) Blood, UA (test code Small Negative A = 59765-9) Nitrite, UA (test Negative Negative code = 5802-4) Leukocytes, UA (test Moderate Negative A code = 5799-2) Urobilinogen, UA 0.2 mg/dL 0.2-1.0 (test code = 03462-2) RBC, UA (test code = 18 See_Comment [Autom ated 59462-9) message] The system which generated this result [...] . Bacteria, UA (test Rare code = 01895-8) Mucus (test code = Moderate 8247-9) Squam Epithel, UA 2 See_Comment [Automate d (test code = 26680-4) messag e] The system which generated this result transmit barron reference range : /HPF. The reference range was not used to interpret this result as normal/abnormal . Hyaline Casts, UA 3 See_Comment [Automate d (test code = 89134-3) messag e] The system which generated this result transmit barron reference range : /LPF. The reference range was not used to interpret this result as normal/abnormal . Crystals, Urine (test None Seen code = 51867-5) Amorphous Crystals Rare (test code = 29962-6) Specimen Source (test code = 2795) REJI (test code = REJI) Concrete Laborer ID - [auto]Concrete Laborer ID - tech Lab Interpretation Abnormal (test code = 04242-8) [facility] Reflex to Culture 2021-09-02 02:29:12 Test Item Value Reference Range Interpretation Comments Color, UA (test code Brown = 5778-6) Clarity, UA (test Hazy code = 5767-9) Specific [place], UA 1.029 1.001-1.035 (test code = 5811-5) pH, UA (test code = 6.0 5.0-8.0 5803-2) Protein, UA (test 30 mg/dL Negative A code = 36873-4) Glucose, UA (test Negative Negative code = 365) Ketones, UA (test Negative Negative code = 2514-8) Bilirubin, UA (test Negative Negative code = 80728-5) Blood, UA (test code Small Negative A = 25247-3) Nitrite, UA (test Negative Negative code = 5802-4) Leukocytes, UA (test Moderate Negative A code = 5799-2) Urobilinogen, UA 0.2 mg/dL 0.2-1.0 (test code = 70482-2) RBC, UA (test code = 18 See_Comment [Autom ated 47045-3) message] The system which generated this result [...] . Bacteria, UA (test Rare code = 85469-4) Mucus (test code = Moderate 8247-9) Squam Epithel, UA 2 See_Comment [Automate d (test code = 68454-6) messag e] The system which generated this result transmit barron reference range : /HPF. The reference range was not used to interpret this result as normal/abnormal . Hyaline Casts, UA 3 See_Comment [Automate d (test code = 20647-0) messag e] The system which generated this result transmit barron reference range : /LPF. The reference range was not used to interpret this result as normal/abnormal . Crystals, Urine (test None Seen code = 25828-1) Amorphous Crystals Rare (test code = 01335-5) Specimen Source (test code = 2795) REJI (test code = REJI) Concrete Laborer ID - [auto]Concrete Laborer ID - tech Lab Interpretation Abnormal (test code = 09567-9) [facility] Reflex to Culture 2021-09-02 02:29:12 Test Item Value Reference Range Interpretation Comments Color, UA (test code Brown = 5778-6) Clarity, UA (test Hazy code = 5767-9) Specific [place], UA 1.029 1.001-1.035 (test code = 5811-5) pH, UA (test code = 6.0 5.0-8.0 5803-2) Protein, UA (test 30 mg/dL Negative A code = 68997-6) Glucose, UA (test Negative Negative code = 365) Ketones, UA (test Negative Negative code = 2514-8) Bilirubin, UA (test Negative Negative code = 32512-8) Blood, UA (test code Small Negative A = 31178-4) Nitrite, UA (test Negative Negative code = 5802-4) Leukocytes, UA (test Moderate Negative A code = 5799-2) Urobilinogen, UA 0.2 mg/dL 0.2-1.0 (test code = 78522-5) RBC, UA (test code = 18 See_Comment [Autom ated 38185-4) message] The system which generated this result [...] . Bacteria, UA (test Rare code = 88098-3) Mucus (test code = Moderate 8247-9) Squam Epithel, UA 2 See_Comment [Automate d (test code = 62561-6) messag e] The system which generated this result transmit barron reference range : /HPF. The reference range was not used to interpret this result as normal/abnormal . Hyaline Casts, UA 3 See_Comment [Automate d (test code = 85928-0) messag e] The system which generated this result transmit barron reference range : /LPF. The reference range was not used to interpret this result as normal/abnormal . Crystals, Urine (test None Seen code = 38789-1) Amorphous Crystals Rare (test code = 75056-4) Specimen Source (test code = 2795) REJI (test code = REJI) Concrete Laborer ID - [auto]Concrete Laborer ID - tech Lab Interpretation Abnormal (test code = 10409-8) [facility] UR[facility] [id number] 02:29:12 Test Item Value Reference Range Interpretation [...] = 1584) SOURCE(BEAKER) (test code = 2795) Concrete Laborer ID - [auto]Concrete Laborer ID - techRAD, CHEST, 1 VIEW, NON [id number] 01:45:00Reason for exam:->leukocytosis, unable to provide historyShould this be performed at the bedside?->Yes [facility] 1960 Sex: [...] 09/02/2021 01:45:23 CBC W/PLT COUNT & AUTO [id number] 00:20:23 Test Item Value Reference Range Interpretation [...] CONCENTRATION Decreased (CELLAVISION)(BEAKER) (test code = 3438) Concrete Laborer ID - Curtis Grullon comments: Slide comments:PT/[id number] 23:44:49 Test Item Value Reference Interpretation Comments Range Protime (test code = 22.8 See_Comment H [Autom ated 5902-2) message] The system which generated this result transmitted reference range : 11.9 - 14.2 seconds. The reference range was not used to interpret this result as normal/abnormal . INR (test code = 2.04 See_Comment [Automated 3981-6) message] The system which generated this result transmitted reference range : <=5.90. The reference range was not used to interpret this result as normal/abnormal . PTT (test code = 35.2 See_Comment [Automated 58065-9) message] The system which generated this result [...] valves. Lab Interpretation Abnormal (test code = 66947-1) [facility]/[id number] 23:44:49 Test Item Value Reference Interpretation Comments [...] PTT (test code = 35.2 See_Comment [Automated 70452-8) message] The system which generated this result [...] valves. Lab Interpretation Abnormal (test code = 04113-2) [facility]/[id number] 23:44:49 Test Item Value Reference Interpretation Comments [...] PTT (test code = 35.2 See_Comment [Automated 72067-8) message] The system which generated this result [...] valves. Lab Interpretation Abnormal (test code = 27993-4) [facility]/[id number] 23:44:49 Test Item Value Reference Interpretation Comments Range Protime (test code = 22.8 See_Comment H [Autom ated 5902-2) message] The system which generated this result transmitted reference range : 11.9 - 14.2 seconds. The reference range was not used to interpret this result as normal/abnormal . INR (test code = 2.04 See_Comment [Automated 1581-6) message] The system which generated this result transmitted reference range : <=5.90. The reference range was not used to interpret this result as normal/abnormal . PTT (test code = 35.2 See_Comment [Automated 76532-0) message] The system which generated this result [...] valves. Lab Interpretation Abnormal (test code = 54365-6) [facility]/[id number] 23:44:49 Test Item Value Reference Range Interpretation [...] for patients with mechanical heart valves.BASIC METABOLIC [id number] 23:31:12 Test Item Value Reference Range Interpretation [...] S NOT APPLICABLE FOR DIALYSIS PATIEN TS. Concrete Laborer ID - DBSpecimen slightly zuvygsaLCFHTZZKS4472-49-94 23:19:46 Test Item Value Reference Range Interpretation Comments MAGNESIUM (BEAKER) (test code = 1.8 mg/dL 1.6-2.6 627) Concrete Laborer ID - [id number] 23:19:46 Test Item Value Reference Range Interpretation Comments PHOSPHORUS (BEAKER) (test code = 1.9 mg/dL 2.3-4.7 L 604) Concrete Laborer ID - DBHEPATIC FUNCTION [id number] 23:19:46 Test Item Value Reference Range Interpretation [...] (test code = 14 U/L 6-55 347) Concrete Laborer ID - DBSpecimen slightly ictericLactic acid, [id number] 23:13:03 Test Item Value Reference Range Interpretation Comments Lactate, Venous (test 2.88 mmol/L 0.50-2.20 H code = 2872) REJI (test code = REJI) Concrete Laborer ID - DBSpecimen slightly icteric Lab Interpretation (test Abnormal code = 32900-6) [facility], [id number] 23:13:03 Test Item Value Reference Range Interpretation Comments Lactate, Venous (test 2.88 mmol/L 0.50-2.20 H code = 2872) REJI (test code = REJI) Concrete Laborer ID - DBSpecimen slightly icteric Lab Interpretation (test Abnormal code = 36135-8) [facility], [id number] 23:13:03 Test Item Value Reference Range Interpretation Comments Lactate, Venous (test 2.88 mmol/L 0.50-2.20 H code = 2872) REJI (test code = REJI) Concrete Laborer ID - DBSpecimen slightly icteric Lab Interpretation (test Abnormal code = 81018-1) [facility] Hospital[facility], [id number] 23:13:03 Test Item Value Reference Range Interpretation Comments Lactate, Venous (test 2.88 mmol/L 0.50-2.20 H code = 2872) REJI (test code = REJI) Concrete Laborer ID - DBSpecimen slightly icteric Lab Interpretation (test Abnormal code = 37564-6) [facility] Hospital[facility]CT[facility] ACID, [id number] 23:13:03 Test Item Value Reference Range Interpretation Comments LACTATE BLOOD VENOUS (2) (BEAKER) 2.88 mmol/L 0.50-2.20 H (test code = 2872) Concrete Laborer ID - DBSpecimen slightly ictericPOC-Glucose dabjk7665-45-54 22:47:30 Test Item Value Reference Range Interpretation Comments POC-Glucose Meter (test 106 mg/dL 70-110 : TE STED AT [facility] code = 1538) [address] [facility], [address] 30: Concrete Laborer/Techni sowmya ID = [id number] for ULLATTIL, TAYA K Lab Interpretation (test Normal code = 02840-6) [facility]-Glucose [id number] 22:47:30 Test Item Value Reference Range Interpretation Comments POC-Glucose Meter (test 106 mg/dL 70-110 : TE STED AT [facility] code = 1538) [address] [facility], [address]70 30: Concrete Laborer/Techni sowmya ID = [id number] for ULLATTIL, TAYA K Lab Interpretation (test Normal code = 71528-1) [facility]-Glucose [id number] 22:47:30 Test Item Value Reference Range Interpretation Comments POC-Glucose Meter (test 106 mg/dL 70-110 : TE STED AT [facility] code = 1538) [address] [place] [address], [address]70 30: Concrete Laborer/Techni sowmya ID = [id number] for ULLATTIL, TAYA K Lab Interpretation (test Normal code = 83423-6) [facility]-Glucose [id number] 22:47:30 Test Item Value Reference Range Interpretation Comments POC-Glucose Meter (test 106 mg/dL 70-110 : TE STED AT [facility] code = 1538) [address] [place] [address], [address] 30: Concrete Laborer/Techni sowmya ID = [id number] for ULLATTIL, TAYA K Lab Interpretation (test Normal code = 12212-4) [facility]-GLUCOSE [id number] 22:47:30 Test Item Value Reference Range Interpretation Comments POC-GLUCOSE METER 106 mg/dL 70-110 : TESTED A T [facility] [address] (BEAKER) (test code = [facility], 1538) [address]: Concrete Laborer/Techni sowmya ID = [id number] for UL LATTIL, WALE C1Q class 1 & 2 [id number] 17:38:21 Test Item Value Reference Range Interpretation Comments Interpretation (test code ADDITIONAL ANTIBODY = 6800771) INFORMATION:DQ7 = DQB1*03:01; DQA1*05:03DQ7 = DQB1*03:19; DQA1*05:05DQ7 = DQB1*03:01; DQA1*06:01DQ9 = DQB1*03:03; DQA1*02:01DQ9 = DQB1*03:03; DQA1*03:02DQ8 = DQB1*03:02; DQA1*03:01DQ8 = DQB1*03:02; DQA1*03:02 Case number (test code = [id number]) C1Q class 1 & 2 antibody See link below for (test code = 3193606) PDF [facility] Report [facility], diffusion, lung volumes, [facility]/[id number] 19:27:26 Test Item Value Reference Range Interpretation [...] code = 67.9 % 5368) [facility] [id number] 13:53:30 Test Item Value Reference Range Interpretation Comments POC glucose (test code = 124 mg/dL 65-99 H Ope rator Name: [id number]) Clint Bustamante RDevice ID: [id number] able : [facility] Notified events traffic controller Interpretation (test Abnormal code = 72263-3) [facility] antigen [id number] 11:33:46 Test Item Value Reference Range Interpretation Comments SAB interpretation (test Additional Antibody code = 5950) Information:DQ2=DQB1 *02:01/DQA1*04:01, DQB1*02:01/DQA1*05:0 2PK1=VVO9*04:02/DQA1 *04:70RD7=EWF6*03:01 /DPA1*01:03, DPB1*03:01/DPA1*02:0 3YK3=URZ2*04:02/DPA1 *01:62IA18=NFO4*28:0 1/DPA1*01:03 SAB serum ID (test code = [id number] 5866) SAB serum collection D&T 08/23/2021 05:49 AM (test code = 5867) SAB class I antibody A11,A74,A32,A3,A31,A assignment (test code = 30,A36,A1,A29,A66,A8 5870) 0,A26,A25,A43,A34,A3 3,B82 SAB cPRA class I (test code = 5868) SAB class II antibody DR18,DR17,DR13,DR14, assignment (test code = DR52,DR11,DR8,DQ7,DR 5871) 12,DQ9,DR9,DR7,DQ8,D Q2,DR4,DQ4,DP2,DP14, DP4,DP9,DP10,DP18,DP 20,DP17,DP3,DP28 SAB cPRA class II (test code = 5869) Case number (test code = [id number]) Single antigen beads See link below for (test code = 4604) PDF [facility], [id number] 20:20:55 Test Item Value Reference Range Interpretation Comments Collection start date, urine (test 08/23/21 code = 70037-6) Collection start time, urine (test 8:40 code = 13085-7) Collection stop date, urine (test 08/24/21 code = 51094-7) Collection stop time, urine (test 8:40 code = 81495-7) Hours of collection (test code = 97769-0) Total volume, urine (test code = 800 mL 63256-6) Urine protein concentration (test 7 mg/dL code = 61675-7) Urine protein excretion (test code = mg/vol 2448) Alma BeckCreatinine level, urine, [id number] 20:20:52 Test Item Value Reference Range Interpretation Comments Collection start date, urine (test 08/23/21 code = 59077-0) Collection start time, urine (test 8:40 code = 67109-0) Collection stop date, urine (test 08/24/21 code = 91037-8) Collection stop time, urine (test 8:40 code = 43978-8) Hours of collection (test code = 42845-4) Total volume, urine (test code = 800 mL 87841-1) Urine creatinine concentration 114 mg/dL (test code = 85477-2) Urine creatinine excretion (test mg/vol code = 67394-7) Alma OnealARS-CoV-2 (COVID-19) RNA [Presence] in Respiratory specimen by GUSTAVO with probe [id number] 20:48:05 Test Item Value Reference Range Interpretation Comments SARS-CoV-2 (COVID-19) RNA Not detected Not-Detected [Presence] in Respiratory specimen by GUSTAVO with probe detection (test code = 49833-0) 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 (test code = 80136-5) Whether the patient has symptoms related to condition of interest (test code = 63993-0) Patient was hospitalized because of this condition (test code = 16483-3) Whether the patient was admitted to intensive care unit (ICU) for condition of interest (test code = 19216-5) Whether patient resides in a congregate care setting (test code = 90115-3) PHI MULLIGAN 12 [id number] 15:33:38 Test Item Value Reference Range Interpretation Comments Ventricular rate (test code = 253) Atrial rate (test code = 255) [place] interval (test code = 266) QRSD interval [...] out Inferior infarct , age undetermined-Abnormal [facility] kobsffnnkx9604-38-58 14:27:40 Test Item Value Reference Range Interpretation Comments HLA transplant evaluation See link below for (test code = 35538-2) PDF Lab Report Case number (test code = [id number]) [facility] ED Preliminary Interpretation - Not an [id number] 02:54:33 Test Item Value Reference Range Interpretation Comments REJI (test code = REJI) Orlando Balderrama MD 08/17/2021 10:33 [facility] Preliminary Interpretation - Not an OrderPerformed by: Orlando Balderrama MDAuthorized by: Orlando Balderrama MD ECG reviewed by ED Physician in the absence of a truck driver helper: yes Interpretation: Interpretation: abnormal Rate: ECG rate: 80 ECG rate assessment: normal Rhythm: Rhythm: sinus rhythm QRS: QRS axis: Normal QRS intervals: NormalST segments: ST segments: NormalOther findings: Other findings: prolonged qTc interval Lab Interpretation Abnormal (test code = 35842-3) [facility]nq[facility]xtjhOGT[facility]-TiS-[facility] (COVID-19) RNA [Presence] in Respiratory specimen by GUSTAVO with probe [id number] 23:59:30 Test Item Value Reference Range Interpretation Comments SARS-CoV-2 (COVID-19) RNA Not detected Not-Detected [Presence] in Respiratory specimen by GUSTAVO with probe detection (test code = 34675-0) 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 (test code = 94849-4) Whether the patient has symptoms related to condition of interest (test code = 21223-6) Patient was hospitalized because of this condition (test code = 83932-3) Whether the patient was admitted to intensive care unit (ICU) for condition of interest (test code = 77388-8) Whether patient resides in a congregate care setting (test code = 98109-0) status (test code = 50720-3) PHI MICHAELSARS-CoV-2 (COVID-19) RNA [Presence] in Respiratory specimen by GUSTAVO with probe omakwhsue0143-09-02 14:46:31 Test Item Value Reference Range Interpretation Comments SARS-CoV-2 (COVID-19) RNA Not detected Not-Detected [Presence] in Respiratory specimen by GUSTAVO with probe detection (test code = 06722-3) 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 (test code = 53548-6) Whether the patient has symptoms related to condition of interest (test code = 29681-3) Patient was hospitalized because of this condition (test code = 90284-5) Whether the patient was admitted to intensive care unit (ICU) for condition of interest (test code = 30186-9) Whether patient resides in a congregate care setting (test code = 09496-8) status (test code = 23059-5) PHI MICHAELSARS-CoV-2 (COVID-19) RNA [Presence] in Respiratory specimen by GUSTAVO with probe qfwayqmrm1963-46-34 19:52:10 Test Item Value Reference Range Interpretation Comments SARS-CoV-2 (COVID-19) RNA Not detected Not-Detected [Presence] in Respiratory specimen by GUSTAVO with probe detection (test code = 78297-6) 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 (test code = 26176-1) Whether the patient has symptoms related to condition of interest (test code = 02168-9) Patient was hospitalized because of this condition (test code = 82762-9) Whether the patient was admitted to intensive care unit (ICU) for condition of interest (test code = 45513-5) Whether patient resides in a congregate care setting (test code = 52665-1) status (test code = 45729-4) PHI MICHAELSARS-CoV-2 (COVID-19) RNA [Presence] in Respiratory specimen by GUSTAVO with probe spavafkxz6264-03-70 19:31:11 Test Item Value Reference Range Interpretation Comments SARS-CoV-2 (COVID-19) RNA Not detected Not-Detected [Presence] in Respiratory specimen by GUSTAVO with probe detection (test code = 14084-1) 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 (test code = 46692-9) Whether the patient has symptoms related to condition of interest (test code = 71759-4) Patient was hospitalized because of this condition (test code = 34598-1) Whether the patient was admitted to intensive care unit (ICU) for condition of interest (test code = 38737-6) Whether patient resides in a congregate care setting (test code = 81083-0) status (test code = 22145-6) PHI MICHAELSARS-CoV-2 (COVID-19) RNA [Presence] in Respiratory specimen by GUSTAVO with probe kncqlwazg4877-89-60 02:26:38 Test Item Value Reference Range Interpretation Comments SARS-CoV-2 (COVID-19) RNA Not detected Not-Detected [Presence] in Respiratory specimen by GUSTAVO with probe detection (test code = 33822-3) PHI CORLEY FDCLVNNI-OhR-9 (COVID-19) RNA [Presence] in Respiratory specimen by GUSTAVO with probe wndvttrtz8699-08-82 21:10:32 Test Item Value Reference Range Interpretation Comments SARS-CoV-2 (COVID-19) RNA Not detected Not-Detected [Presence] in Respiratory specimen by GUSTAVO with probe detection (test code = 64540-0) PHI CORLEY [id number] (COVID-19) RNA [Presence] in Respiratory specimen by GUSTAVO with probe [id number] 19:03:37 Test Item Value Reference Range Interpretation Comments SARS-CoV-2 (COVID-19) RNA Not detected Not-Detected [Presence] in Respiratory specimen by GUSTAVO with probe detection (test code = 81728-3) PHI MICHAELSARS-CoV-2 (COVID-19) RNA [Presence] in Respiratory specimen by GUSTAVO with probe [id number] 05:36:17 Test Item Value Reference Range Interpretation Comments SARS-CoV-2 (COVID-19) RNA Not detected Not-Detected [Presence] in Respiratory specimen by GUSTAVO with probe detection (test code = 40516-7) PHI MICHAELSARS-CoV-2 (COVID-19) IgG+IgM Ab [Presence] in Serum or Plasma by [id number] 09:52:00 Test Item Value Reference Range Interpretation Comments SARS-CoV-2 (COVID-19) IgG+IgM Ab Not detected [Presence] in Serum or Plasma by Immunoassay (test code = 03522-5) PHI MICHAELSARS-CoV-2 (COVID-19) RNA [Presence] in Respiratory specimen by GUSTAVO with probe [id number] 04:46:40 Test Item Value Reference Range Interpretation Comments SARS-CoV-2 (COVID-19) RNA [Presence] Detected Not-Detected in Respiratory specimen by GUSTAVO with probe detection (test code = 98491-9) PHI MICHAELSARS-CoV-2 (COVID-19) RNA [Presence] in Respiratory specimen by GUSTAVO with probe [id number] 00:55:48 Test Item Value Reference Range Interpretation Comments SARS-CoV-2 (COVID-19) RNA Not detected Not-Detected [Presence] in Respiratory specimen by GUSTAVO with probe detection (test code = 12118-1) PHI MICHAELSARS-CoV-2 (COVID-19) RNA [Presence] in Respiratory specimen by GUSTAVO with probe [id number] 08:17:26 Test Item Value Reference Range Interpretation Comments SARS-CoV-2 (COVID-19) RNA Not detected Not-Detected [Presence] in Respiratory specimen by GUSTAVO with probe detection (test code = 15607-2) PHI MICHAELSARS-CoV-2 (COVID-19) RNA [Presence] in Respiratory specimen by GUSTAVO with probe [id number] 00:04:18 Test Item Value Reference Range Interpretation Comments SARS-CoV-2 (COVID-19) RNA Not detected Not-Detected [Presence] in Respiratory specimen by GUSTAVO with probe detection (test code = 72144-4) PHI MICHAELSARS-CoV-2 (COVID-19) RNA [Presence] in Respiratory specimen by GUSTAVO with probe [id number] 04:41:17 Test Item Value Reference Range Interpretation Comments SARS-CoV-2 (COVID-19) RNA Not detected Not-Detected [Presence] in Respiratory specimen by GUSTAVO with probe detection (test code = 09597-4) PHI MICHAELSARS-CoV-2 (COVID-19) RNA [Presence] in Respiratory specimen by GUSTAVO with probe [id number] 04:13:39 Test Item Value Reference Range Interpretation Comments SARS-CoV-2 (COVID-19) RNA Not detected Not-Detected [Presence] in Respiratory specimen by GUSTAVO with probe detection (test code = 84039-9) PHI MICHAEL
--- NOTE | 2022-12-24 14:48 | RAD REPORT ---
EXAM DESCRIPTION: RAD - Chest Single View - 12/24/2022 2:39 pm CLINICAL HISTORY: hypoxemia Chest pain. COMPARISON: Chest Single View dated 11/16/2022; Chest Single View dated 03/25/2022; Chest Single View d ated 02/11/2022; Chest Pa And Lat (2 Views) dated 01/23/2022 FINDINGS: Portable technique limits examination quality. The lungs are grossly clear. The heart is normal in size. No displaced fractures.Left axillary lymph rachel dissection. IMPRESSION: No acute intrathoracic process suspected.
[2022-12-24 14:56] LABS: Absolute Lymphocytes (CBC) 1.7 K/uL (0.7-4.9); Hematocrit 36.5 % (36.0-45.0); Lymphocytes % 19.3 % (15.3-44.8); MCV 92.8 fL (80-100); MPV 8.1 fL (7.6-11.3); RBC Red Blood Cell Count 3.93 M/uL (3.86-4.86)
--- NOTE | 2022-12-24 15:02 | RAD REPORT ---
EXAM DESCRIPTION: CT - Abdomen Pelvis Wo Contrast - 12/24/2022 2:51 pm CLINICAL HISTORY: Abdominal pain. UTI, hypotension COMPARISON: Stone Protocol dated 11/16/2022 TECHNIQUE: CT imaging of the abdomen and pelvis was performed without contrast. Solid organ, bowel a nd vascular assessment is limited due to lack of IV and oral contrast. All CT scans are performed using dose optimization technique as appropriate and may include automated exposure control or mA/KV adjustment according to patient size. FINDINGS: Mild linear atelectasis in both posterior lung bases.Cholecystectomy clips. The liver, spleen, pancreas, adrenal glands and kidneys are within normal limits for a limited non-co ntrast examination.Punctate right renal calculus without hydronephrosis. No bowel obstruction, free air, free fluid or abscess. Significant stool retention noted throughout t he colon. Postsurgical changes in the right lower quadrant. Discrete appendix not visualized. Moderate lumbar degenerative changes, notable at L2-3. IMPRESSION: Prominent liquid stool retained throughout the colon. A limited non-contrast examination was performed as detailed.
[2022-12-24] MEDS ORDERED: NA CHLORIDE 0.9% 500 ML ONE (15:05)
[2022-12-24 15:19] LABS: Albumin 3.3 g/dL (3.4-5.0); Bilirubin Total 0.3 mg/dL (0.2-1.0); Potassium 3.7 mEq/L (3.5-5.1); Protein, Total 6.1 g/dL (6.4-8.2); Troponin High Sensitivity 10.2 pg/mL (<58.9)
[2022-12-24 16:42] LABS: Specific Gravity 1.018 (1.005-1.030); Urine Bacteria None Seen /HPF (<20); Urine Bilirubin NEGATIVE (Negative); Urine Blood Negative (Negative); Urine Clarity Clear (Clear); Urine Color Light-Yellow (Yellow); Urine Glucose NEGATIVE (Negative); Urine Protein 2+ (Negative); Urine RBC <5 /HPF (None Seen); Urine Urobilinogen Normal (Normal)
--- NOTE | 2022-12-24 17:09 | EDPHYS ---
Physician Documentation [facility] Name: Bella Barron Age: 62 yrs Sex: Female : 1960 Arrival Date: 12/24/2022 Time: 13:42 Bed 20 Private MD: ED Physician Beau Encarnacion HPI: 12/24 15:32 This 62 yrs old Female presents to ER via EMS with complaints of Near Syncope, General rn Weakness. 15:33 Pt reports generalized weakness, feels faint and lightheaded, tired. Began last week. rn States being treated for UTI with abx. EMS reported low blood pressure initially, but improved with only 200cc fluid bolus. No chest pain. No cough/sob. No abd pain. No vomiting/diarrhea. . Onset: The symptoms/episode began/occurred 1 week(s) ago. Severity of symptoms: At their worst the symptoms were moderate in the emergency department the symptoms have improved. The patient has not experienced similar symptoms in the past. The patient has been recently seen by a physician:. Historical: - Allergies: 14:18 ceftriaxone; db 14:18 Ciprofloxacin; db 14:18 EGG/POULTRY; db 14:18 Iodine; db 14:18 LACTASE; db 14:18 Promethazine; db - PMHx: 14:18 cirrhosis of liver; Crohn's Disease; hypotension; kidney disease; trach removed Nov 2021; - Immunization history:: Adult Immunizations unknown, Client reports having NOT received the Covid vaccine. - Social history:: Smoking status: Patient reports the use of cigarette tobacco products, smokes one pack cigarettes per day. - Family history:: not pertinent. - Hospitalizations: : No recent hospitalization is reported. ROS: 15:33 Constitutional: Negative for fever, chills, and weight loss, Eyes: Negative for injury, rn pain, redness, and discharge, Neck: Negative for injury, pain, and swelling, Cardiovascular: Negative for chest pain, palpitations, and edema, Respiratory: Negative for shortness of breath, cough, wheezing, and pleuritic chest pain, Abdomen/GI: Negative for abdominal pain, nausea, vomiting, diarrhea, and constipation, Back: Negative for injury and pain, MS/Extremity: Negative for injury and deformity, Skin: Negative for injury, rash, and discoloration, Neuro: Negative for headache, numbness, tingling, and seizure. Exam: 15:28 ECG was reviewed by the Attending Physician. rn 15:33 Constitutional: This is a well developed, well nourished patient who is awake, but rn somnolent Head/Face: Normocephalic, atraumatic. Cardiovascular: Regular rate and rhythm. No pulse deficits. Respiratory: No increased work of breathing, no retractions or nasal flaring. Abdomen/GI: soft, non-tender Skin: Warm, dry MS/ Extremity: Pulses equal, no cyanosis. Neuro: Awake, GCS 15, oriented to person, place, time, and situation. Cranial nerves II-XII grossly intact. Motor strength 4/5 in all extremities. Sensory grossly intact. Vital Signs: 13:45 BP 125 / 75; Pulse 55; Resp 16; Temp 98.2(O); Pulse Ox 99% on R/A; Weight 64.86 kg; db Height 4 ft. 11 in. ; 14:00 BP 103 / 67; Pulse 53; Resp 16; Pulse Ox 96% on R/A; db 14:52 BP 139 / 85; Pulse 60; Resp 16; Pulse Ox 100% on R/A; db 15:00 BP 161 / 89; Pulse 66; Resp 16 S; Pulse Ox 100% on R/A; db 16:30 BP 109 / 58; Pulse 60; Resp 16; Pulse Ox 100% on R/A; db 13:45 Body Mass Index 28.88 (64.86 kg, 149.86 cm) db MDM: 14:08 Patient medically screened. 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 Data reviewed: vital signs, nurses notes, lab test result(s), EKG, radiologic studies, CT scan, plain films. 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 Markedly improved with fluid bolus and no acute findings in workup. Care significantly affected by the following chronic conditions: Liver Disease, liver transplant. Counseling: I had a detailed discussion with the patient and/or guardian regarding: the historical points, exam findings, and any diagnostic results supporting the discharge/admit diagnosis, lab results, radiology results, the need for outpatient follow up, to return to the emergency department if symptoms worsen or persist or if there are any questions or concerns that arise at home. Response to treatment: the patient's symptoms have markedly improved after treatment, and as a result, I will discharge patient. Special discussion: I discussed with the patient/guardian in detail that at this point there is no indication for admission to the hospital. It is understood, however, that if the symptoms persist or worsen the patient needs to return immediately for re-evaluation. Based on the history and exam findings, there is no indication for further emergent testing or inpatient evaluation. I discussed with the patient/guardian the need to see the primary care provider for further evaluation of the symptoms. ED course: Pt improved, never hypotensive here in ER, CT shows diarrhea, LFTs WNL, normal WBC, stable vitals, will dc home with return precautions. . 12/24 14:16 Order name: Blood Culture Adult (2) rn 12/24 14:16 Order name: CBC with Diff; Complete Time: 15:05 rn 12/24 14:16 Order name: CMP; Complete Time: 15:23 rn 12/24 14:16 Order name: Lactate w/ 2H reflex if indic.; Complete Time: 15:23 rn 12/24 14:16 Order name: Protime (+inr) rn 12/24 14:16 Order name: Ptt, Activated rn 12/24 14:16 Order name: Urinalysis w/ reflexes; Complete Time: 16:53 rn 12/24 14:16 Order name: BNP; Complete Time: 15:23 rn 12/24 14:16 Order name: Troponin High Sensitivity; Complete Time: 15:23 rn 12/24 15:17 Order name: Glucose, Ancillary Testing; Complete Time: 15:23 EDMS 12/24 14:16 Order name: Chest Single View XRAY; Complete Time: 15:05 rn 12/24 14:30 Order name: Abdomen ; Complete Time: 15:05 EDMS 12/24 14:16 Order name: EKG; Complete Time: 14:16 rn 12/24 14:07 Order name: EKG - Nurse/Tech; Complete Time: 16:31 db 12/24 14:16 Order name: Accucheck; Complete Time: 15:11 rn 12/24 14:16 Order name: Cardiac monitoring; Complete Time: 15:11 rn 12/24 14:16 Order name: IV Saline Lock - Large Bore; Complete Time: 15:12 rn 12/24 14:16 Order name: Labs collected and sent; Complete Time: 15:12 rn 12/24 14:16 Order name: O2 Per Protocol; Complete Time: 15:12 rn 12/24 14:16 Order name: O2 Sat Monitoring; Complete Time: 15: rn 12/24 14:16 Order name: Vital Signs; Complete Time: 15:12 rn EC:28 Rate is 53 beats/min. Rhythm is regular. QRS [place] is Normal. RI interval is normal. QRS rn interval is prolonged at 122 msec. QT interval is normal. No Q waves. T waves are Normal. No ST changes noted. Clinical impression: Sinus bradycardia. Interpreted by me. Reviewed by me. Administered Medications: 15:01 Drug: NS 0.9% IV 500 ml Route: IV; Rate: bolus; Site: left antecubital; db 15:15 Follow up: Response: No adverse reaction; IV Status: Completed infusion; IV Intake: db 500ml Disposition Summary: 12/24/22 17:09 Discharge Ordered Location: Home rn Problem: new rn Symptoms: have improved rn Condition: Stable rn Diagnosis - Muscle weakness (generalized) rn - Dehydration rn - Diarrhea, unspecified rn Followup: rn - With: Private Physician - When: As needed - Reason: Recheck today's complaints, Re-evaluation by your physician Discharge Instructions: - Discharge Summary Sheet rn - Dehydration, Adult rn - Diarrhea, Adult rn - Weakness rn Forms: - Medication Reconciliation Form rn - Thank You Letter rn - Antibiotic yarn sizer - Prescription Opioid Use rn Signatures: Dispatcher [employer] EDKS Jada Jha Roman, MD MD rn Benton, Danielle, RN RN db Corrections: (The following items were deleted from the chart) 14:30 14:16 Abdomen Pelvis W Con+CT.RAD.BRZ ordered. EDKS EDMS 15:34 15:33 The patient has not recently seen a physician, rn rn
--- NOTE | 2022-12-24 17:09 | ER ---
Nurse's Notes [facility] Name: Bella Barron Age: 62 yrs Sex: Female : 1960 Arrival Date: 12/24/2022 Time: 13:42 Bed 20 Private MD: Diagnosis: Muscle weakness (generalized);Dehydration;Diarrhea, unspecified Presentation: 12/24 13:45 Chief complaint: Chief complaint: EMS states: patient with seizure like activity from db home, hypotensive BP 80's/40's patient with weakness and near syncope. 13:45 Method Of Arrival: EMS: [facility] db 13:45 Coronavirus screen: Vaccine status: Patient reports receiving the 2nd dose of the covid db vaccine. Client denies travel out of the [place] in the last 14 days. At this time, the client does not indicate any symptoms associated with coronavirus-19. Ebola Screen: Patient negative for fever greater than or equal to 101.5 degrees Fahrenheit, and additional compatible Ebola Virus Disease symptoms Patient denies exposure to infectious person. Patient denies travel to an Ebola-affected area in the 21 days before illness onset. No symptoms or risks identified at this time. Initial Sepsis Screen: Does the patient meet any 2 criteria? Systolic BP < 90 mmHg. Yes Does the patient have a suspected source of infection? Yes: Dysuria/Frequency/Urgency/UTI If YES to both, name of provider notified: Beau Encarnacion MD. Risk Assessment: Do you want to hurt yourself or someone else? Patient reports no desire to harm self or others. Onset of symptoms was December 24, 2022. 13:45 Acuity: OLEG 2 db 14:14 Note Code sepsis Called for patient. db Triage Assessment: 14:19 General: Appears comfortable, weak. Behavior is calm, cooperative, drowsy. Pain: Denies db pain. Historical: - Allergies: 14:18 ceftriaxone; db 14:18 Ciprofloxacin; db 14:18 EGG/POULTRY; db 14:18 Iodine; db 14:18 LACTASE; db 14:18 Promethazine; db - PMHx: 14:18 cirrhosis of liver; Crohn's Disease; hypotension; kidney disease; trach removed Jun db 2021; - Immunization history:: Adult Immunizations unknown, Client reports having NOT received the Covid vaccine. - Social history:: Smoking status: Patient reports the use of cigarette tobacco products, smokes one pack cigarettes per day. - Family history:: not pertinent. - Hospitalizations: : No recent hospitalization is reported. Screenin:45 [facility] ED Fall Risk Assessment (Adult) History of falling in the last 3 months, db including since admission Yes- single mechanical fall (1 pt) Confusion or Disorientation Yes (5 pts) Intoxicated or Sedated No (0 pts) Impaired Gait No (0 pts) Mobility Assist Device Used No (0 pt) Altered Elimination No (0 pt) Score/Fall Risk Level 3 or more points = High Risk. 17:38 Abuse screen: Denies threats or abuse. Denies injuries from another. Nutritional db screening: No deficits noted. Tuberculosis screening: No symptoms or risk factors identified. Assessment: 14:20 Reassessment: Patient appears in no apparent distress at this time. Patient and/or db family updated on plan of care and expected duration. Pain level reassessed. Patient is alert, oriented x 3, equal unlabored respirations, skin warm/dry/pink. General: Appears in no apparent distress. comfortable, Behavior is calm, cooperative. Neuro: Level of Consciousness is awake, alert, obeys commands, Oriented to person, place, time, situation. 14:46 Neuro: Reports weakness. db 14:46 Reassessment: patient in CT. db 15:16 Reassessment: Patient appears in no apparent distress at this time. Patient and/or db family updated on plan of care and expected duration. Pain level reassessed. Patient is alert, oriented x 3, equal unlabored respirations, skin warm/dry/pink. FAMILY is at patient bedside. patient is eating a cookie. Asked patient to wait till results came back. Patient states "I'm going to eat" and proceeded to finish eating cookie. 16:30 Reassessment: Patient appears in no apparent distress at this time. Patient and/or db family updated on plan of care and expected duration. Pain level reassessed. Patient is alert, oriented x 3, equal unlabored respirations, skin warm/dry/pink. Vital Signs: 13:45 BP 125 / 75; Pulse 55; Resp 16; Temp 98.2(O); Pulse Ox 99% on R/A; Weight 64.86 kg; db Height 4 ft. 11 in. ; 14:00 BP 103 / 67; Pulse 53; Resp 16; Pulse Ox 96% on R/A; db 14:52 BP 139 / 85; Pulse 60; Resp 16; Pulse Ox 100% on R/A; db 15:00 BP 161 / 89; Pulse 66; Resp 16 S; Pulse Ox 100% on R/A; db 16:30 BP 109 / 58; Pulse 60; Resp 16; Pulse Ox 100% on R/A; db 13:45 Body Mass Index 28.88 (64.86 kg, 149.86 cm) db ED Course: 14:00 First set of blood cultures drawn. db 14:06 Patient arrived in ED. db 14:08 Beau Encarnacion MD is Attending Physician. rn 14:14 Jayleen Butt RN is Primary Nurse. db 14:18 Triage completed. db 14:19 Arm band placed on Patient placed in an exam room. db 14:21 Maintain EMS IV. Dressing intact. Site clean \\T\\ dry. Gauge \\T\\ site: 20G. db 14:35 Inserted saline lock: 20 gauge in left antecubital area, using aseptic technique. Blood db collected. 14:35 Second set of blood cultures drawn by la. db 14:40 Chest Single View XRAY In Process Unspecified. EDMS 14:53 Abdomen In Process Unspecified. EDMS 17:39 No provider procedures requiring assistance completed. IV discontinued, intact, db bleeding controlled, No redness/swelling at site. 17:42 Patient has correct armband on for positive identification. Bed in low position. Call db light in reach. Side rails up X 1. Administered Medications: 15:01 Drug: NS 0.9% IV 500 ml Route: IV; Rate: bolus; Site: left antecubital; db 15:15 Follow up: Response: No adverse reaction; IV Status: Completed infusion; IV Intake: db 500ml Medication: 17:42 VIS not applicable for this client. db Intake: 15:15 IV: 500ml; Total: 500ml. db Outcome: 17:09 Discharge ordered by . rn 17:37 Discharged to home via wheelchair. db 17:37 Condition: stable 17:37 Discharge instructions given to patient, Instructed on discharge instructions, follow up and referral plans. 17:43 Patient left the ED. db Signatures: Dispatcher [employer] EDMS Beau Encarnacion MD MD rn Jayleen Butt, RN RN db Corrections: (The following items were deleted from the chart) 14:44 14:21 Maintain EMS IV. Dressing intact. Good blood return noted. Site clean \\T\\ dry. db Gauge \\T\\ site: 20G. db 15:14 15:12 BP 150 / 60; Pulse 66bpm; Resp 16bpm; Spontaneous; Pulse Ox 98%; db db 17:37 13:45 Chief complaint: db db
[2022-12-24 18:00] VITALS: TEMP 98.2
[2022-12-24 18:04] VITALS: O2SAT 100
[2022-12-24 18:05] VITALS: BP 161/89
--- NOTE | 2022-12-25 07:48 | EKG ---
Test Date: 2022-12-24 Test Time: 14:05:53 Braided Band Assembler: MELITON MEASUREMENT RESULTS: Intervals: Rate: 53 IA: 152 QRSD: 122 QT: 454 QTc: 426 [place]: P: 42 IA: 152 QRS: 32 T: 26 INTERPRETIVE STATEMENTS: Sinus bradycardia Right bundle branch block Abnormal ECG Compared to ECG 03/25/2022 21:22:05 Right bundle-branch block now present Sinus rhythm no longer present Prolonged QT interval no longer present Electronically Signed On 12-25-22 07:45:46 CDT by Nico Caldwell
== END 2022-12-24 17:43 | disposition home or self-care (01) ==
LOC: ER 13:42
DX: R53.1 Weakness (principal); E86.0 Dehydration; R19.7 Diarrhea, unspecified; K50.90 Crohn's disease, unspecified, without complications; K74.60 Unspecified cirrhosis of liver; Z88.3 Allergy status to other anti-infective agents; Z88.8 Allergy status to other drugs, medicaments and biological substances; Z91.012 Allergy to eggs; Z91.041 Radiographic dye allergy status; Z28.310 Unvaccinated for COVID-19
CPT/HCPCS: 93005; 87040 ×2; 85025; 81001; 36415; 85610; 82947; 83605; 85730; 84484; 80053; 83880; 74176; 71045; 99284; J7040

== ENCOUNTER 2023-03-08 11:13 | Emergency (ER) | payer OTHER ==
--- OUTSIDE RECORDS SUMMARY | 2023-03-08 11:32 | XMS REPORT | Continuity of Care Document ---
:1960 Author Organization [facility] t Address [address] [place] [address] Care Team Providers Name Role Phone Jose Calos Bustamante Primary Care Physician [phone] Fernando Man Attending Clinician Unavailable PEDRO BRIDGES Attending Clinician Unavailable RAY LACY Attending Clinician Unavailable IVIS GARVEY Attending Clinician Unavailable MD DIANA BANGURA Attending Clinician Unavailable CALOS GARCIA Attending Clinician [...] SALLY AGUDELO Attending Clinician Unavailable Doctor Unassigned, Catherine Attending Clinician Unavailable Mercy Tamez MD Attending Clinician Cam LAMAR, Libby Attending Clinician LIBBY LEVY Attending Clinician Unavailable Rafael FRANKLIN, Kendy Dalal Attending Clinician [phone] KENDY HALL Attending Clinician Unavailable Silvio FRANKLIN, Dawna Attending Clinician Isabella FRANKLIN, Zara Stevenson Attending Clinician [phone] Vj FRANKLIN, Shiela Man Attending Clinician Aly FRANKLIN, Selma Bernard Attending Clinician Kyle FRANKLIN, Nia Delaney Attending Clinician Jn Cleveland RN Attending Clinician [...] Clinician Unavailable Wild Kovacs DO Attending Clinician [phone] Mildred FRANKLIN, Cliff Marion Attending Clinician MD CALOS GARCIA Attending Clinician Unavailable Freedom Gutierrez DO Attending Clinician Chris FRANKLIN, Robby Rios Attending Clinician [phone] MD HERIBERTO YORK Attending Clinician Unavailable MD PIERCE MARSHALL Attending Clinician Unavailable NOBLE ALMEIDA Attending Clinician Unavailable YIFAN CUMMINS Attending Clinician Unavailable MERCY RUEDA Attending Clinician Unavailable MD HERMILO CHAMPION Attending Clinician Unavailable JUNO DIAL Attending Clinician Unavailable DO MERCY RUEDA Attending Clinician Unavailable EBONY ROPER Attending Clinician Unavailable RA RHODES Attending Clinician Unavailable Lita Fuchs S Attending Clinician LIAT CORRIGAN S Attending Clinician Unavailable DARCY, UMAR Attending Clinician Unavailable Anabell Ma RN Attending Clinician Akanksha Jensen MD Attending Clinician Indra Motta MD Attending Clinician Lizy Taylor MD Attending Clinician MD DIANA BANGURA Admitting Clinician Unavailable PEDRO BRIDGES Admitting Clinician Unavailable DO ROMERO LIMON Admitting Clinician Unavailable DARA VERMA Admitting Clinician Unavailable HERIBERTO YORK Admitting Clinician [...] Unavailable DO MERCY RUEDA Admitting Clinician Unavailable DARCY, GABYAR Admitting Clinician Unavailable Indra Motta MD Admitting Clinician Payers Payer Name Policy Type Policy Number Effective Date Expiration Date S ource MEDICARE A B [id number] 2015 00:00:00 GENERIC MEDICAID [id number] 2021 HMO 00:00:00 WELLMED/UHC DUAL [id number] 2022 COMP HMO D SNP 00:00:00 LEACH [id number] 2022 HEALTHCARE STAR 00:00:00 PLUS MEDICARE PART A [id number] 2015 \\T\\ B 00:00:00 MEDICAID OF [id number] 2018 [place] 00:00:00 [facility] [id number] [facility] MEDICARE NOVITAS MB [id number] 2015 Common 00:00:00 [facility] [id number] [facility] MEDICARE NOVITAS MB [id number] 2015 Common 00:00:00 [facility] MEDICARE NOVITAS MB [id number] 2015 Common 00:00:00 [facility] [id number] [facility] MEDICARE NOVITAS MB [id number] 2015 Common 00:00:00 [facility] [id number] [facility] [id number] [facility] MEDICARE NOVITAS MB [id number] 2015 Common 00:00:00 [facility] [id number] [facility] MEDICARE NOVITAS MB [id number] 2015 Common 00:00:00 [facility] MEDICARE NOVITAS MB [id number] 2015 Common 00:00:00 [facility] [id number] [facility] MEDICARE NOVITAS MB [id number] 2015 Common 00:00:00 [facility] [id number] [facility] MEDICARE NOVITAS MB [id number] 2015 Common 00:00:00 [facility] [id number] [facility] Problems Condition Condition Condition Status Onset Resolution Last Treating Co mments Source Name Details Category Date Date Treatment Clinician Date Altered Altered Disease Active [facility] mental mental 09-02 [facility] status status 00:00: [...] Added automatic ally from request for surgery [id number] Chronic Chronic Disease Active 2020-08 Methodi kidney [...] Disease Active 2019-08 M ethodi ia ia 003 st 00:00: Hospita 00 l Lymphedema Lymphedema Disease Active M ethodi 9 st 00:00: Hospita 00 l Tremor of Tremor of Disease Active Met hodi unknown unknown 806 st origin origin 00:00: Hospita 00 l Weakness Weakness Disease Active Metho di generalize generalize 608 st d d 00:00: Hospita 00 l Confusion Confusion Disease Active Met hodi 3-03 st 00:00: Hospita 00 l Acute Acute Disease Active 2018-08 Methodi hepatic hepatic 1 st encephalop encephalop 00:00: Ho spita athy athy 00 l Slurred Slurred Disease Active Methodi speech speech 05-08 00:00: Hospita 00 l CAM (acute CAM (acute Disease Active 2019-0 M ethodi kidney kidney 05-08 injury) injury) 00:00: Hospita 00 l UTI UTI Disease Active Methodi (urinary (urinary 04-14 tract tract 00:00: Hospita infection) infection) 00 l Altered Altered Disease Active [facility] mental mental 03-19 status, status, 00:00: Hospita unspecifie unspecifie 00 l d d Hematochez Hematochez Disease Active U nivers ia ia 03-06 ity of 00:00: [place] [address] Medical Branch Abdominal Abdominal Disease Active Met hodi pain pain 11-12 st 00:00: Hospita 00 l Weakness Weakness Disease Active Metho di 08-20 00:00: Hospita 00 l Chest pain Chest pain Disease Active 0 M ethodi on on 08-20 breathing breathing 00:00: Hosp page 00 l Non-intrac Non-intrac Disease Active M ethodi table table 08-20 vomiting vomiting 00:00: Hospit a with with 00 l nausea nausea Gastroesop Gastroesop Disease Active 2019-0 M ethodi hageal hageal 08-20 reflux reflux [...] Added automatic ally from request for surgery [id number] Persistent Persistent Disease Active M ethodi depressive depressive 2-28 st disorder disorder 00:00: Hospit a 00 l 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 2-02 it y of athy athy 00:00: [place] 00 [facility] Branch Hepatic Hepatic Disease Active 2015-08 Methodi encephalop encephalop 1-15 st athy athy 00:00: Hospita 00 l Thrombocyt Thrombocyt Disease Active M ethodi openia openia 05-04 00:00: Hospita 00 l Malnutriti Malnutriti Disease Active M ethodi on on 05-04 00:00: Hospita 00 l Right Right Disease Active Univers shoulder shoulder 4-25 ity of pain pain 00:00: [place] [facility] Anxiety Anxiety Disease Active Univers and and 4- [place] [facility] Rectal Rectal Disease Active 2014-08 Univers bleed bleed 2-03 ity of 00:00: [place] 00 [facility] Cirrhosis Cirrhosis Disease Recurre [facility] Crohn Crohn Disease Recurre [facility] disease disease [facility] [id number] Secondary Problem Comm on esophageal Spirit varices - [facility]I without St bleeding [facility] [id number] Portal Problem Common hypertensi Spirit on - [facility] [id number] 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 portosyste Medica l jacqueline shunt) [place] [id number] MCFARLANE Problem Common (nonalcoho Spirit lic - [facility] steatohepa 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 Spir it of liver - CHI without ascites [facility] Fatigue Fatigue Problem Common Spirit - [facility] Chronic Chronic Problem Common pain pain Spirit - [facility] Anxiety Anxiety Problem Common Spirit [facility] Depression Depression Problem C ommon Spirit - [facility] Kidney Kidney Problem Common stone stone Spirit [facility] Thrombocyt Thrombocyt Problem C ommon openia openia [facility] Bipolar Bipolar Problem Common disorder disorder [facility] Restless Restless Problem Commo n legs legs Spirit syndrome syndrome [facility] [id number] Inflammato Problem Com mon ry bowel Spirit disease [facility] [id number] Incontinen Problem Com mon ce of Spirit feces, - [facility] unspecifie d fecal [facility] incontinen Medica l ce type Center Body mass BMI Problem Common index 40+ 40.0-44.9, Spi rit - morbidly adult - [facility] obese [facility] Allergic Seasonal Problem Commo n rhinitis and Spirit perennial - [facility] allergic rhinitis [facility] Irritable Irritable Problem Com mon bowel bowel Spirit syndrome syndrome - [facility] without [facility] [id number] Adult BMI Problem Com mon 35.0-35.9 Spirit kg/sq [facility] [id number] Insomnia, Problem Com mon unspecifie Spirit d type - [facility] Migraine Migraine Problem Commo n [facility] Gout Gout Problem Common [facility] Allergies, Adverse Reactions, Alerts Allergy Allergy Status Severity Reaction(s) Onset Inactive Treating Comm ents Source Name Type Date Date Clinician Shellfis Drug Active [facility] Allergy 2-01 [facility] Containi 00:00: Medical ng 00 [place] Products Fish Drug Active [facility] Containi Allergy 2- [facility] ng 00:00: Medical Products 00 [place] Shellfis Drug Active [facility] Allergy 2-01 [facility] Containi 00:00: Medical ng 00 [place] Products FISH Allergy Active [facility] CONTAINI 2-01 [facility] NG 00:00: Medical PRODUCTS 00 [place] SHELLFIS Allergy Active [facility] H 2-01 [facility] CONTAINI 00:00: Medical NG 00 [place] PRODUCTS Fish Drug Active [facility] Containi Allergy 2-01 [facility] ng 00:00: Medical Products 00 [place] EGGSHELL Allergy Active [facility] MEMBRANE 09-07 [facility] 00:00: Medical 00 [place] Eggshell Drug Active [facility] Membrane Allergy 09-07 [facility] 00:00: Medical 00 [place] CEFTRIAX Allergy Active [facility] ONE 1- [facility] 00:[facility]: Medical 00 Center IODINE Allergy [...] Hives 2020-08 Method i xacin ty to 013 st adverse 00:00: Hospita reaction 00 l s to drug Ceftriax Propensi Active Itching 2017-0 Unive rs one ty to 2 ity of adverse 00:00: [place] reaction 00 Medical [facility] CEFTRIAX DRUG Active ITCHING 2017-0 Univers ONE INGREDI 2 ity of 00:00: [place] [facility] Branch Ceftriax Propensi Active Itching 2018-0 Metho di one ty to 10-06 st adverse 00:00: Hospita reaction 00 l s to drug Prometha Propensi Active Other - See 2017-0 Severe U nivers zine ty to comments 3- confusion ity o f adverse 00:00: [place] reaction 00 [facility] PROMETHA DRUG Active Other-Cmnt 2017-0 Univ ers ZINE INGREDI 3- ity of 00:00: [place] 00 Medical Branch Eggshell Propensi Active Diarrhea 2017-0 Egg yoke Un linda Membrane ty to 2 ity of adverse 00:00: [place] reaction 00 Medical s Branch EGGSHELL DRUG Active Diarrhea 2017-0 Univer s MEMBRANE INGREDI 2- ity of 00:00: [place] 00 Medical Branch Eggshell Propensi Active Diarrhea 2017-0 Egg yoke Me thodi Membrane ty to 2 st adverse 00:00: Hospita reaction 00 l s to drug Prometha Propensi Active Other (See 2017-0 Severe Me thodi zine ty to Comments) [address] adverse 00:00: Hospita reaction 00 l s to drug Shellfis Propensi Active Anaphylaxis U nivers h ty to 05-05 ity [...] Branch 463 Drug Active Unknown Common allergy [facility] prometha prometha Active Unknown Commo n zine zine [facility] NO KNOWN Allergy Active [facility] ALLERGIE S Family History Family Member Diagnosis Comments Start Date Stop Date Source Natural father No Known Problems Met [facility] Natural mother No Known Problems Met [facility] Social History Social Habit Start Date Stop Date Quantity Comments Source Exposure to Not sure University of SARS-CoV-2 (event) [facility] History SDOH [facility] Alcohol Std Drinks Medica Center History SDOH [facility] Alcohol Binge Medical [address] [facility] History of Tobacco Common Spirit - Use [facility] History SDOH 2021-09-02 2021-09-[address] [facility] Alcohol Frequency 00:00:00 00:00:00 [facility] Center Alcohol intake 2021-09-02 2021-09-[address] Alejo es 00:00:00 00:00:00 non-drinker Medical Nitza cantu (finding) Tobacco use and 2019-01-30 2019-01-30 Smokeless tobacco Un iversity of exposure 00:00:00 00:00:00 non-user [facility] Cigarettes smoked 2016-11-22 2016-11-[address] current (pack per 00:00:00 00:00:00 Hospita l day) - Reported Cigarette 2016-11-22 2016-11-22 Jew pack-years 00:00:00 00:00:00 Hospital Tobacco Comment 2016-09-12 2016-09-12 smokes 5 Jew 00:00:00 00:00:00 cigarettes per Hospital day Alcohol Comment 2016-05-02 2016-05-02 Former social Method ist 00:00:00 00:00:00 alcohol use, quit Hospita l several years ago; denies history of heavy alcohol use Sex Ass[birth year] [facility] 00:00:00 00:00:00 [facility] Smoking Status Start Date Stop Date Source Former Smoker 2021-10-13 00:00:00 2021-10-13 00:00:00 Common S pirit - [facility] Ce nter Never smoked tobacco [facility] Medications Ordered Filled Start Stop Current Ordering Indication Dosage Frequency Signature Comments Components Source Medication Medication Date Date Medication? Clinician (SIG) Name Name ketorolac No 30mg 30 mg, Unive rs (TORADOL) 11-07 Intramuscu ity of injection 19:15: 18:35 lar, ONCE, [place] 30 mg 00 :00 1 dose, On Medical Wed Branch 11/07/22 at 1415, Routine estradioL Yes [id number] Apply 1g Univers (ESTRACE) 2- vaginally ity o f 0.01 % (0.1 00:00: at bedtime [place] mg/gram) 00 every Medical vaginal night for Branch cream 2 weeks and then apply 1g vaginally at bedtime 3 times per week ( dn/ ida) nystatin Yes [id number] Apply to Un linda (NYSTOP) 2-21 area(s) 3 ity of 100,000 00:00: (three) [place] unit/gram 00 times Medical powder daily. Branch estradioL Yes [id number] Apply 1g Univers (ESTRACE) 2-21 vaginally ity o f 0.01 % (0.1 00:00: at bedtime [place] mg/gram) 00 every Medical vaginal night for Branch cream 2 weeks and then apply 1g vaginally at bedtime 3 times per week ( dn/ iday) nystatin 2022-0 Yes [id number] Apply to Un linda (NYSTOP) 2-21 area(s) 3 ity of 100,000 00:00: (three) [place] unit/gram 00 times Medical powder daily. Branch estradioL Yes [id number] Apply 1g Univers (ESTRACE) 2-21 vaginally ity o f 0.01 % (0.1 00:00: at bedtime [place] mg/gram) 00 every Medical vaginal night for Branch cream 2 weeks and then apply 1g vaginally at bedtime 3 times per week (/ ida) nystatin 0 Yes [id number] Apply to Un linda (NYSTOP) 2-21 area(s) 3 ity of 100,000 00:00: (three) [place] unit/gram 00 times Medical powder daily. Branch estradioL Yes [id number] Apply 1g Univers (ESTRACE) 2-21 vaginally ity o f 0.01 % (0.1 00:00: at bedtime [place] mg/gram) 00 every Medical vaginal night for Branch cream 2 weeks and then apply 1g vaginally at bedtime 3 times per week (/ ida) nystatin Yes [id number] Apply to Un linda (NYSTOP) 2-21 area(s) 3 ity of 100,000 00:00: (three) [place] unit/gram 00 times Medical powder daily. Branch methylnaltr Yes Take by Uni vers exone 2-16 mouth. ity of bromide 14:28: [place] (RELISTOR 49 Medical ORAL) [place] potassium Yes Take by Unive rs (POTASSIMIN 2-16 mouth once it y of ORAL) 14:28: now. [address] spironolact 0 Yes 100mg Take 100 U nivers one 100 mg 2-16 mg by ity of tablet 14:28: mouth. [address] methylnaltr 0 Yes Take by Uni vers exone 2-16 mouth. ity of bromide 14:28: [place] (RELISTOR 49 Medical ORAL) [place] potassium Yes Take by Unive rs (POTASSIMIN 2-16 mouth once it y of ORAL) 14:28: now. [address] spironolact 2022-0 Yes 100mg Take 100 U nivers one 100 mg 2-16 mg by ity of tablet 14:28: mouth. [address] methylnaltr 2021-0 Yes Take by Uni vers exone 2-16 mouth. ity of bromide 14:28: [place] (RELISTOR 49 Medical ORAL) Branch potassium 2021-0 Yes Take by Unive rs (POTASSIMIN 2-16 mouth once it y of ORAL) 14:28: now. [address] spironolact 2021-0 Yes 100mg Take 100 U nivers one 100 mg 2-16 mg by ity of tablet 14:28: mouth. [address] methylnaltr 2021-0 Yes Take by Uni vers exone 2-16 mouth. ity of bromide 14:28: [place] (RELISTOR 49 Medical ORAL) Branch potassium 2021-0 Yes Take by Unive rs (POTASSIMIN 2-16 mouth once it y of ORAL) 14:28: now. [address] spironolact 2021-0 Yes 100mg Take 100 U nivers one 100 mg 2-16 mg by ity of tablet 14:28: mouth. [address] lactulose 2021-0 Yes 20g Q.[id number] Take [address] (Kristalose 2-07 [id number] packet (20 [facility] ) 20 gram 00:00: 3D g total) Medi cj packet 00 by mouth 3 Center (three) times daily START ONCE STOOLS ARE FORMED.. lactulose 2021-0 Yes 20g Q.[id number] Take [address] (Kristalose 2-07 [id number] packet (20 [facility] ) 20 gram 00:00: 3D g total) Medi cj packet 00 by mouth 3 Center (three) times daily START ONCE STOOLS ARE FORMED.. lactulose 2021-0 Yes 20g Q.[id number] Take [address] (Kristalose 2-07 [id number] packet (20 [facility] ) 20 gram 00:00: 3D g total) Medi cj packet 00 by mouth 3 Center (three) times daily START ONCE STOOLS ARE FORMED.. lactulose 2021-0 Yes 20g Q.[id number] Take [address] (Kristalose 2-07 [id number] packet (20 [facility] ) 20 gram 00:00: 3D g total) Medi cj packet 00 by mouth 3 Center (three) times daily START ONCE STOOLS ARE FORMED.. lactulose 0 Yes 20g Q.[id number] Take [address] (Kristalose 2-07 [id number] packet (20 [facility] ) 20 gram 00:00: 3D g total) Medi cj packet 00 by mouth 3 Center (three) times daily START ONCE STOOLS ARE FORMED.. lactulose 0 Yes 20g Q.[id number] Take [address] (Kristalose 2-07 [id number] packet (20 [facility] ) 20 gram 00:00: [...] 12:13: mouth Medical 56 daily. Center topiramate 2022-0 Yes 1{tbl} QD Take [address] [...] 550 mg Tab 12:13: mouth 2 Medi jc 56 (two) Center times daily. spironolact 0 [...] 100 mg Tab 12:13: mouth 2 Medi jc 56 (two) Center times daily as needed. [...] nter mcg/mL 30 injection (thirty) days. traMADoL 2022-0 Yes 50mg Take [address] [...] for 3 days. lactulose 2021- No 1{packe Q.[id number] Take [address] (Kristalose 2-04 02-04 t} [id number] packet by [facility] ) 20 gram 15:50: 00:00 3D mouth 3 Medi cj packet 31 :00 (three) Center times daily. lactulose 2021- No 1{packe Q.[id number] Take [address] (Kristalose 2-04 02-04 t} [id number] packet by [facility] ) 20 gram 15:50: 00:00 3D mouth 3 Medi cj packet 31 :00 (three) Center times daily. lactulose 2021- No 1{packe Q.[id number] Take [address] (Kristalose 2-04 02-04 t} [id number] packet by [facility] ) 20 gram 15:50: 00:00 3D mouth 3 Medi cj packet 31 :00 (three) Center times daily. zinc 2021-[address] [facility] oxide-luana 2-04 TOPICALLY Alejo es latum 00:00: BID. Medical (CRITIC-AID 00 Center ) 20-51 % Pste topical paste zinc 2021-[address] oxide-luana 2-04 TOPICALLY [place] es latum 00:00: BID. Medical (CRITIC-AID 00 [place] ) 20-51 % Pste topical paste zinc 2021-[address] [facility] oxide-luana 2-04 TOPICALLY [place] es latum 00:00: BID. Medical (CRITIC-AID [address] [place] [address] ) 20-51 % Pste topical paste zinc 2021-[address] [facility] oxide-luana 2-04 TOPICALLY [place] es latum 00:00: BID. Medical (CRITIC-AID 00 [place] ) 20-51 % Pste topical paste zinc 2021-[address] [facility] oxide-luana 2-04 TOPICALLY [place] es latum 00:00: BID. Medical (CRITIC-AID 00 [place] ) 20-51 % Pste topical paste zinc 2021-[address] [facility] oxide-luana 2-04 TOPICALLY [place] es latum 00:00: BID. Medical (CRITIC-AID [address] [place] [address] ) 20-51 % Pste topical paste nystatin 2022- No Q.5D Apply [facility] (MYCOSTATIN 2-04 02-04 topically Susanna kes ) 100,000 00:00: 23:59 2 (two) Medi cj unit/gram 00 :00 times Center powder daily. cholestyram 2022- No 1{packe Q.5D Take [address] ine 2-04 02-04 t} packet by [employer] ([place] (QUESTRAN) 00:00: 23:59 mouth 2 Med ical 4 gram PwPk 00 :00 (two) Center packet times daily. nystatin 2022- No Q.5D Apply [facility] (MYCOSTATIN 2-04 02-04 topically Susanna kes ) 100,000 00:00: 23:59 2 (two) Medi cj unit/gram 00 :00 times Center powder daily. cholestyram 2022- No 1{packe Q.5D Take [address] ine 2-04 02-04 t} packet by [employer] ([employer]) 00:00: 23:59 mouth 2 Med ical 4 gram PwPk 00 :00 (two) Center packet times daily. nystatin 2022- No Q.5D Apply [facility] (MYCOSTATIN 2-04 02-04 topically Susanna kes ) 100,000 00:00: 23:59 2 (two) Medi cj unit/gram 00 :00 times Center powder daily. cholestyram 2022- No 1{packe Q.5D Take [address] ine 2-04 02-04 t} packet by [employer] ([employer]) 00:00: 23:59 mouth 2 Med ical 4 gram PwPk 00 :00 (two) Center packet times daily. nystatin 2022- No Q.5D Apply [facility] (MYCOSTATIN 2-04 02-04 topically Susanna kes ) 100,000 00:00: 23:59 2 (two) Medi cj unit/gram 00 :00 times Center powder daily. cholestyram 2022- No 1{packe Q.5D Take [address] ine 2-04 02-04 t} packet by [employer] ([employer]) 00:00: 23:59 mouth 2 Med ical 4 gram PwPk 00 :00 (two) Center packet times daily. nystatin 2022- No Q.5D Apply [facility] (MYCOSTATIN 2-04 02-04 topically Susanna kes ) 100,000 00:00: 23:59 2 (two) Medi cj unit/gram 00 :00 times Center powder daily. cholestyram 2022- No 1{packe Q.5D Take [address] ine 2-04 02-04 t} packet by [employer] ([employer]) 00:00: 23:59 mouth 2 Med ical 4 [...] or as directed by MD. lidocaine 2021-0 2- No 1{patch Q24H Place [address] (LIDODERM) 09-1506 } patch onto Susanna kes 5 % patch 00:00: 23:59 the skin Med ical 00 :00 daily for Center 30 days Remove & Discard patch within 12 hours or as directed by MD. lidocaine 2021-0 2022- No 1{patch Q24H Place [address] (LIDODERM) 09-1506 } patch onto Susanna kes 5 % patch 00:00: 23:59 the skin Med ical 00 :00 daily for Center 30 days Remove & Discard patch within 12 hours or as directed by MD. fidaxomicin 2021-2021- No 200mg Take [address] [...] 1{packe Q.5D Take [address] ine 209-15 t} packet by [facility] (QUESTRAN) 00:00: 00:00 [...] St ine 2-04 02-04 t} packet by [employer] (QUESTRAN) 00:00: 00:00 mouth 2 Med ical 4 gram PwPk 00 :00 (two) Center packet times daily. fidaxomicin 2021-0 2022- No 200mg Take 1 [...] St ine 2-04 02-04 t} packet by [employer] ([place] (QUESTRAN) 00:00: 00:00 mouth 2 Med ical 4 gram PwPk 00 :00 (two) Center packet times daily. fidaxomicin 2021-0 2- No 200mg Take 1 [...] (two) Center times daily. lactulose Yes 1{packe Q.[id number] Take [address] (Kristalose 1-24 t} [id number] packet by [employer] ) 20 gram 16:27: 3D mouth 3 Medic al packet 52 (three) Center times daily. azithromyci 2021- No 500mg QD Take 1 Me thodi n 08-[address] (ZITHROMAX) 00:00: 05:59 (500 mg [...] Q8H Take 4 mg M ethodi ODT [address] (ZOFRAN-ODT 18:28: every 8 [...] additional dose as needed at bedtime spironolact 2021- Yes 50mg QD Take 50 mg Methodi [...] or buttocks every 30 (thirty) days. riFAXimin 2-0 Yes 550mg Q.5D Take 550 Met hodi [...] daily as l needed for anxiety. Per [facility] on Drug Monitoring Program records: Last filled: [...] tablet 18:28: nightly. Hosp page 48 Per [facility] Prescripti on Drug Monitoring Program records: Last filled: 12/29/21 Quantity: 30 Days Supply: 30 traMADoL Yes 50mg Q4H Take 50 mg Met hodi (ULTRAM) 50 1-[address] mg tablet 18:28: every 4 Hospi ta 48 (four) l hours as needed for moderate pain. Per [place] Prescripti on Drug Monitoring Program records: Last [...] a tablet 47 :00 l SUMAtriptan Yes [id number] 50mg Q24H Take 1 Methodi (Imitrex) -10 tablet (50 st 50 MG 00:00: mg total) Hospita tablet 00 by mouth l daily as needed for migraine for up to 30 doses. May repeat in 2 hours if unresolved . Max dose 200 mg/day escitalopra 2021- No 10mg QD Take 1 Met hodi m (LEXAPRO) 08-2110 tablet (10 s t 10 MG 00:00: 05:59 mg total) Hospit a tablet 00 :00 by mouth l nightly for 30 days. pantoprazol 2021- No [id number] 40mg QD Take 1 Methodi e 08-2110 tablet (40 st (PROTONIX) 00:00: 05:59 mg total) H ospita 40 MG EC 00 :00 by mouth l tablet every morning for 30 days. QUEtiapine 2021- No 50mg QD Take 1 Meth erasto (SEROquel) -05 13-10 tablet (50 st 50 MG 00:00: 05:59 [...] days. methylPREDN No follow Met hodi ISolone 2-28 03-[address] (MEDROL 00:00: 05:59 directions Hos lis DOSEPAK) 4 00 :00 l mg tablet ibuprofen No 400mg Q8H Take 1 Meth erasto (ADVIL) 400 2-28 03-[address] MG tablet 00:00: 05:59 [...] for 30 days. gabapentin 2021- No 300mg Q.[id number] Take 1 [facility] (NEURONTIN) 9-[id number] 300 mg 00:00: 00:00 3D (300 mg Hospita capsule 00 :00 total) by l mouth 3 (three) times a day for 30 days. Ketorolac Ketorolac 2020-0 No 30mg Com mon (Toradol) (Toradol) 8-24 Spiri t per 15mg per 15mg 00:00: - [facility] Ketorolac Ketorolac 2020-0 No 30mg Com mon (Toradol) (Toradol) 8-24 Spiri t per 15mg per 15mg 00:00: - [facility] Ketorolac Ketorolac 2020-0 No 30mg Com mon (Toradol) (Toradol) 8-24 Spiri t per 15mg per 15mg 00:00: - [facility] Ketorolac Ketorolac 2020-0 No 30mg Com mon (Toradol) (Toradol) 8-24 Spiri t per 15mg per 15mg 00:00: - [facility] Ketorolac Ketorolac 2020-0 No 30mg Com mon (Toradol) (Toradol) 8-24 Spiri t per 15mg per 15mg 00:00: - [facility] Vitamin B12 Vitamin B12 2020-0 No 1000ug Common (Cyanocobal (Cyanocobal 7-24 S pirit jameson) jameson) 00:00: - [facility] Vitamin B12 Vitamin B12 2020-0 No 1000ug Common (Cyanocobal (Cyanocobal 7-24 S pirit jameson) jameson) 00:00: - [facility] Vitamin B12 Vitamin B12 2020-0 No 1000ug Common (Cyanocobal (Cyanocobal 7-24 S pirit jameson) jameson) 00:00: - [facility] Vitamin B12 Vitamin B12 2020-0 No 1000ug Common (Cyanocobal (Cyanocobal 7-24 S pirit jameson) jameson) 00:00: - [facility] Vitamin B12 Vitamin B12 2020-0 No 1000ug Common (Cyanocobal (Cyanocobal 7-24 S pirit jameson) jameson) 00:00: - [facility] pantoprazol 2021- No [id number] 40mg QD Take 1 Methodi e 01-24 tablet (40 st (PROTONIX) 00:00: 00:00 mg total) H ospita 40 MG EC 00 :00 by mouth l tablet every morning. SUMAtriptan 2021- No [id number] 50mg Q24H Take 1 Methodi (Imitrex) 01-24 [...] pirit jameson) jameson) 00:00: - [facility] Vitamin B12 Vitamin B12 2018- No 1000ug Common (Cyanocobal (Cyanocobal 2-05 S pirit jameson) jameson) 00:00: - [facility] Vitamin B12 Vitamin B12 2018- No 1000ug Common (Cyanocobal (Cyanocobal 2-05 S pirit jameson) jameson) 00:00: - [facility] Vitamin B12 Vitamin B12 2019- No 1000ug Common (Cyanocobal (Cyanocobal 2-05 S pirit jameson) jameson) 00:00: - [facility] Vitamin B12 Vitamin B12 2018- No 1000ug Common (Cyanocobal (Cyanocobal 2-05 S pirit jameson) jameson) 00:00: - [facility] Vitamin B12 Vitamin B12 2019-0 No 1000ug Common (Cyanocobal (Cyanocobal 8-29 S pirit jameson) jameson) 00:00: - [facility] Vitamin B12 Vitamin B12 2019-0 No 1000ug Common (Cyanocobal (Cyanocobal 8-29 S pirit jameson) jameson) 00:00: - [facility] Vitamin B12 Vitamin B12 2019-0 No 1000ug Common (Cyanocobal (Cyanocobal 8-29 S pirit jameson) jameson) 00:00: - [facility] Vitamin B12 Vitamin B12 2019-0 No 1000ug Common (Cyanocobal (Cyanocobal 8-29 S pirit jameson) jameson) 00:00: - [facility] Vitamin B12 Vitamin B12 2018-0 No 1000ug Common (Cyanocobal (Cyanocobal 8-29 S pirit jameson) jameson) 00:00: - [facility] eszopiclone 2018-0 Yes 2mg Take 2 mg U nivers 2 mg tablet 7-29 by mouth ity of 16:42: at [place] [address] bedtime. Medical Branch GABAPENTIN Yes Take by [facility] [place] ers ORAL 7-29 mouth. ity of 16:42: [place] [address] Medical Branch traMADOL 50 0 Yes 50mg Take 50 mg Univers mg tablet 7-29 by mouth ity of 16:42: as needed [place] [address] for Pain Medical (scale Branch 7-10). eszopiclone 2019-0 Yes 2mg Take 2 mg U nivers 2 mg tablet 7-29 by mouth ity of 16:42: at [place] [address] bedtime. Medical Branch GABAPENTIN 0 Yes Take by [facility] [place] ers ORAL 7-29 mouth. ity of 16:42: [place] [address] Medical Branch traMADOL 50 0 Yes 50mg Take 50 mg Univers mg tablet 7-29 by mouth ity of 16:42: as needed [place] [address] for Pain Medical (scale Branch 7-10). eszopiclone 2019-0 Yes 2mg Take 2 mg U nivers 2 mg tablet 7-29 by mouth ity of 16:42: at [place] [address] bedtime. Medical Branch GABAPENTIN 2019-0 Yes Take by [facility] [place] [place] ers ORAL 7-29 mouth. ity of 16:42: [place] [address] Medical Branch traMADOL 50 0 Yes 50mg Take 50 mg Univers mg tablet 7-29 by mouth ity of 16:42: as needed [place] [address] for Pain Medical (scale Branch 7-10). eszopiclone 2019-0 Yes 2mg Take 2 mg U nivers 2 mg tablet -29 by mouth ity of 16:42: at [place] 13 bedtime. Medical Branch GABAPENTIN 2019-0 Yes Take by [facility] [place] [place] ers ORAL - mouth. ity of 16:42: [place] 13 Medical Branch traMADOL 50 2019-0 Yes 50mg Take 50 mg Univers mg tablet - by mouth ity of 16:42: as needed [place] [address] for Pain Medical (scale Branch 7-10). lactulose 2019-0 Yes [id number] 20g Take 1 Un linda (KRISTALOSE 7-29 Packet by ity of ) 20 gram 00:00: mouth 3 [place] packet 00 (three) Medical times Branch daily. lactulose 2019-0 Yes [id number] 20g Take 1 Un linda (KRISTALOSE 7-29 Packet by ity of ) 20 gram 00:00: mouth 3 [place] packet 00 (three) Medical times Branch daily. lactulose 2019-0 Yes [id number] 20g Take 1 Un linda (KRISTALOSE 7-29 Packet by ity of ) 20 gram 00:00: mouth 3 [place] packet 00 (three) Medical times Branch daily. lactulose 2019-0 Yes [id number] 20g Take 1 Un linda (KRISTALOSE 7-29 Packet by ity of ) 20 gram 00:00: mouth 3 [place] packet 00 (three) Medical times Branch daily. ondansetron 2019-0 Yes [id number] 8mg Take 2 Univers 4 mg tablet 4-01 tablets by it y of 00:00: mouth [place] 00 every 8 Medical (eight) Branch hours as needed for Nausea and Vomiting (N/V). ondansetron 2019-0 Yes [id number] 8mg Take 2 Univers 4 mg tablet 4-01 tablets by it y of 00:00: mouth [place] 00 every 8 Medical (eight) Branch hours as needed for Nausea and Vomiting (N/V). ondansetron 2019-0 Yes [id number] 8mg Take 2 Univers 4 mg tablet 4-01 tablets by it y of 00:00: mouth [place] 00 every 8 Medical (eight) Branch hours as needed for Nausea and Vomiting (N/V). ondansetron 2019-0 Yes [id number] 8mg Take 2 Univers 4 mg tablet 4-01 tablets by it y of 00:00: mouth [place] 00 every 8 Medical (eight) Branch hours as needed for Nausea and Vomiting (N/V). butalbital- Yes [id number] 1{capsu Take 1 Univers aspirin-caf 3-25 le} capsule by it y of feine 00:00: mouth [place] 50-325-40 00 every 4 Medical mg per (four) Branch capsule hours as needed for Pain (headache unrelieved wtih other medication s). butalbital- Yes [id number] 1{capsu Take 1 Univers aspirin-caf 3-25 le} capsule by it y of feine 00:00: mouth [place] 50-325-40 00 every 4 Medical mg per (four) Branch capsule hours as needed for Pain (headache unrelieved wtih other medication s). butalbital Yes [id number] 1{capsu Take 1 Univers aspirin-caf 3-25 le} capsule by it y of feine 00:00: mouth [place] 50-325-40 00 every 4 Medical mg per (four) Branch capsule hours as needed for Pain (headache unrelieved wtih other medication s). butalbital Yes [id number] 1{capsu Take 1 Univers aspirin-caf 3-25 le} [...] MCG/ACT MCG/ACT MCG/ACT XIFAXAN 550 2016-08 Yes [id number] TAKE ONE Univers mg tablet 1-27 TABLET BY ity o f 00:00: MOUTH 2 [place] 00 TIMES A Medical DAY Branch PANTOPRAZOL 2016-08 Yes [id number] TAKE ONE Univers E 40 mg EC 1-27 TABLET BY ity of tablet 00:00: MOUTH [place] 00 EVERY DAY Medical Branch XIFAXAN 550 2016-08 Yes [id number] TAKE ONE Univers mg tablet 1-27 TABLET BY ity o f 00:00: MOUTH 2 [place] 00 TIMES A Medical DAY Branch PANTOPRAZOL 2016-08 Yes [id number] TAKE ONE Univers E 40 mg EC 1-27 TABLET BY ity of tablet 00:00: MOUTH [place] 00 EVERY DAY Medical Branch XIFAXAN 550 2016-08 Yes [id number] TAKE ONE Univers mg tablet 1-27 TABLET BY ity o f 00:00: MOUTH 2 [place] 00 TIMES A Medical DAY Branch PANTOPRAZOL 2016-08 Yes [id number] TAKE ONE Univers E 40 mg EC 1-27 TABLET BY ity of tablet 00:00: MOUTH [place] 00 EVERY DAY Medical Branch XIFAXAN 550 2016-08 Yes [id number] TAKE ONE Univers mg tablet 1-27 TABLET BY ity o f 00:00: MOUTH 2 [place] 00 TIMES A Medical DAY Branch PANTOPRAZOL 2016-08 Yes [id number] TAKE ONE Univers E 40 mg EC 1-27 TABLET BY ity of tablet 00:00: MOUTH [place] 00 EVERY DAY Medical Branch acetaminoph [id number] Yes 1{tbl} Take 1 Un [...] 3 (three) Medical times Branch daily. acetaminoph 2017-0 [...] 2 tablets [facility] Zofran ODT Zofran ODT No [...] ML X 12/17" 1 ML 25G X 12/17" 1 ML Zofran ODT Zofran ODT No [...] 2021-04-12 Completed Universit y of Vaccine 00:00:00 [facility] Influenza Virus 2021-04-12 Completed Universit y of Vaccine 00:00:00 [facility] Influenza Virus 2021-04-12 Completed Universit y of Vaccine 00:00:00 [facility] Influenza Virus 2021-04-12 Completed Universit y of Vaccine 00:00:00 [facility] SARS-COV-2 COVID-19 2020-12-14 Completed Unive rsity of YANIRA/J&J VACCINE 00:00:00 [facility] SARS-COV-2 COVID-19 2020-12-14 Completed Unive rsity of YANIRA/J&J VACCINE 00:00:00 [facility] SARS-COV-2 COVID-19 2020-12-14 Completed Unive rsity of YANIRA/J&J VACCINE 00:00:00 [facility] SARS-COV-2 COVID-19 2020-12-14 Completed Unive rsity of YANIRA/J&J VACCINE 00:00:00 [facility] Ketorolac (Toradol) Ketorolac (Toradol) 2020-04-04 Completed [facility] - per 15mg per 15mg 11:19:00 [facility] Ketorolac (Toradol) Ketorolac (Toradol) 2020-04-04 Completed [facility] - per 15mg per 15mg 11:19:00 [facility] Ketorolac (Toradol) Ketorolac (Toradol) 2020-04-04 Completed [facility] - per 15mg per 15mg 11:19:00 [facility] Ketorolac (Toradol) Ketorolac (Toradol) 2020-04-04 Completed [facility] - per 15mg per 15mg 11:19:00 [facility] Ketorolac (Toradol) Ketorolac (Toradol) 2020-04-04 Completed [facility] - per 15mg per 15mg 11:19:00 [facility] Ketorolac (Toradol) Ketorolac (Toradol) 2020-04-04 Completed [facility] - per 15mg per 15mg 11:19:00 [facility] Ketorolac (Toradol) Ketorolac (Toradol) 2020-04-04 Completed [facility] - per 15mg per 15mg 11:19:00 [facility] Ketorolac (Toradol) Ketorolac (Toradol) 2020-04-04 Completed [facility] - per 15mg per 15mg 11:19:00 [facility] Vitamin B12 Vitamin B12 2019-07-16 Completed [facility] Sp[facility] t - (Cyanocobalamin) (Cyanocobalamin) 13:54:00 I [facility] Vitamin B12 Vitamin B12 2019-07-16 Completed Common Spiri t - (Cyanocobalamin) (Cyanocobalamin) 13:54:00 I [facility] Vitamin B12 Vitamin B12 2019-07-16 Completed Common Spiri t - (Cyanocobalamin) (Cyanocobalamin) 13:54:00 I [facility] Vitamin B12 Vitamin B12 2019-07-16 Completed Common Spiri t - (Cyanocobalamin) (Cyanocobalamin) 13:54:00 [facility] Vitamin B12 Vitamin B12 2019-07-16 Completed Common Spiri t - (Cyanocobalamin) (Cyanocobalamin) 13:54:00 I [facility] Vitamin B12 Vitamin B12 2019-07-16 Completed Common Spiri t - (Cyanocobalamin) (Cyanocobalamin) 13:54:00 I [facility] Vitamin B12 Vitamin B12 2019-07-16 Completed Common Spiri t - (Cyanocobalamin) (Cyanocobalamin) 13:54:00 [facility] Vitamin B12 Vitamin B12 2019-07-16 Completed Common Spiri t - (Cyanocobalamin) (Cyanocobalamin) 13:54:00 [facility] Vitamin B12 Vitamin B12 2019-04-09 Completed Common Spiri t - (Cyanocobalamin) (Cyanocobalamin) 14:26:00 [facility] Vitamin B12 Vitamin B12 2019-04-09 Completed Common Spiri t - (Cyanocobalamin) (Cyanocobalamin) 14:26:00 [facility] Vitamin B12 Vitamin B12 2019-04-09 Completed Common Spiri t - (Cyanocobalamin) (Cyanocobalamin) 14:26:00 [facility] Vitamin B12 Vitamin B12 2019-04-09 Completed Common Spiri t - (Cyanocobalamin) (Cyanocobalamin) 14:26:00 [facility] Vitamin B12 Vitamin B12 2019-04-09 Completed Common Spiri t - (Cyanocobalamin) (Cyanocobalamin) 14:26:00 I [facility] Vitamin B12 Vitamin B12 2019-04-09 Completed [facility] Spiri t - (Cyanocobalamin) (Cyanocobalamin) 14:26:00 I [facility] Vitamin B12 Vitamin B12 2019-04-09 Completed Common Spiri t - (Cyanocobalamin) (Cyanocobalamin) 14:26:00 I [facility] Vitamin B12 Vitamin B12 2019-04-09 Completed Common Spiri t - (Cyanocobalamin) (Cyanocobalamin) 14:26:00 I [facility] Influenza (IM) 2018-04-21 Completed Jew Preservative Free 00:00:00 Hospita l Influenza Virus 2018-04-21 Completed Universit y of Vaccine (3+ yrs) 00:00:00 [facility] Influenza Virus 2018-04-21 Completed Universit y of Vaccine (3+ yrs) 00:00:00 [facility] Influenza Virus 2018-04-21 Completed Universit y of Vaccine (3+ yrs) 00:00:00 [facility] Influenza Virus 2018-04-21 Completed Universit y of Vaccine (3+ yrs) 00:00:00 [facility] Pneumococcal 2016-05-08 Completed Jew Conjugate 13-Valent 00:00:00 Hospi mateo FLUCELVAX QUAD PF 2016-05-[address] 00:00:00 Hospital Pneumococcal 13 2016-05-08 Completed Universit y of Conjugate, PCV13 00:00:00 [facility] dical (Prevnar 13) Branch Pneumococcal 13 2016-05-08 Completed Universit y of Conjugate, PCV13 00:00:00 [facility] dical (Prevnar 13) Branch Pneumococcal 13 2016-05-08 Completed Universit y of Conjugate, PCV13 00:00:00 [facility] dical (Prevnar 13) Branch Pneumococcal 13 2016-05-08 Completed Universit y of Conjugate, PCV13 00:00:00 [facility] dical (Prevnar 13) Branch Vital Signs Vital Name Observation Time Observation Value Comments Source Systolic blood 2022-11-07 17:39:00 111 mm[Hg] Univer sity of pressure [facility] Diastolic blood 2022-11-07 17:39:00 64 mm[Hg] Unive rsity of pressure [facility] Heart rate 2022-11-07 17:39:00 79 /min Universi ty of [facility] Body temperature 2022-11-07 17:39:00 36.5 Georgette Univ ersity of [facility] Respiratory rate 2022-11-07 17:39:00 18 /min Univ ersity of [facility] Body weight 2022-11-07 17:39:00 80.287 kg Universi ty of [facility] BMI 2022-11-07 17:39:00 35.75 kg/m2 Universi ty of [facility] Oxygen saturation in 2022-11-07 17:39:00 99 /min [facility] Arterial blood by [facility] Pulse oximetry Branch Systolic blood 2021-11-16 18:59:00 111 mm[Hg] Univer sity of [facility] Diastolic blood 2021-11-16 18:59:00 74 mm[Hg] Unive rsity of [facility] Heart rate 2021-11-16 18:59:00 75 /min Universi ty of [facility] Body temperature 2021-11-16 18:59:00 36.67 Georgette Univ ersity of [facility] Body height 2021-11-16 18:59:00 149.9 cm Universi ty of [facility] Body weight 2021-11-16 18:59:00 80.559 kg Universi ty of [facility] BMI 2021-11-16 18:59:00 35.87 kg/m2 Universi ty of [facility] height 2021-10-16 15:30:00 59 [in_i] Common [facility] weight 2021-10-16 15:30:00 176.5 [lb_av] Common [facility] temperature 2021-10-16 15:30:00 97.2 [degF] [facility] bmi 2021-10-16 15:30:00 35.64 kg/m2 [facility] oximetry 2021-10-16 15:30:00 100 % [facility] respiratory rate 2021-10-16 15:30:00 18 /min Comm [facility] blood pressure 2021-10-16 15:30:00 123 mm[Hg] [facility] - systolic [facility] blood pressure 2021-10-16 15:30:00 65 mm[Hg] [facility] - diastolic [facility] height 2021-09-25 10:40:00 59 [in_i] Common [facility] weight 2021-09-25 10:40:00 190 [lb_av] Common S pirit - [facility] temperature 2021-09-25 10:40:00 97.4 [degF] Common [facility] bmi 2021-09-25 10:40:00 38.37 kg/m2 Common [facility] blood pressure 2021-09-25 10:40:00 125 mm[Hg] [facility] - systolic [facility] blood pressure 2021-09-25 10:40:00 76 mm[Hg] [facility] - diastolic [facility] HEIGHT 2021-09-02 15:44:00 149.9 cm WEIGHT 2021-09-02 15:44:00 87.091 kg HEIGHT 2021-09-02 15:44:00 149.9 cm WEIGHT 2021-09-02 15:44:00 87.091 kg height 2021-04-26 10:30:00 59 [in_i] Common [facility] weight 2021-04-26 10:30:00 215 [lb_av] Common S pirit [facility] temperature 2021-04-26 10:30:00 98 [degF] Common S pirit [facility] bmi 2021-04-26 10:30:00 43.42 kg/m2 Common S [facility] blood pressure 2021-04-26 10:30:00 121 mm[Hg] [facility] - systolic [facility] blood pressure 2021-04-26 10:30:00 70 mm[Hg] [facility] - diastolic [facility] height 2021-04-26 14:20:00 59 [in_i] [facility] weight 2021-04-26 14:20:00 215 [lb_av] [facility] temperature 2021-04-26 14:20:00 98 [degF] [facility] bmi 2021-04-26 14:20:00 43.42 kg/m2 [facility] oximetry 2021-04-26 14:20:00 100 % [facility] blood pressure 2021-04-26 14:20:00 121 mm[Hg] [facility] Spirit - systolic [facility] blood pressure 2021-04-26 14:20:00 70 mm[Hg] [facility] Spirit - diastolic [facility] Systolic blood 2021-09-16 08:00:00 98 mm[Hg] [facility] Diastolic blood 2021-09-16 08:00:00 49 mm[Hg] [facility] Heart rate 2021-09-16 08:00:00 89 /min [facility] Body temperature 2021-09-16 08:00:00 36.17 Georgette [facility] Respiratory rate 2021-09-16 08:00:00 18 /min [facility] Oxygen saturation in 2021-09-16 08:00:00 99 /min [facility] Arterial blood by Medical Ce nter Pulse oximetry Systolic blood 2021-09-11 19:42:00 125 mm[Hg] [facility] Diastolic blood 2021-09-11 19:42:00 60 mm[Hg] [facility] Heart rate 2021-09-11 19:42:00 98 /min [facility] Body temperature 2021-09-11 19:42:00 35.67 Georgette [facility] Respiratory rate 2021-09-11 19:42:00 18 /min [facility] Oxygen saturation in 2021-09-11 19:42:00 100 /min [facility] Arterial blood by Medical Ce nter Pulse oximetry Body height 2021-09-02 15:44:00 149.9 cm [facility] Body weight 2021-09-02 15:44:00 87.091 kg [facility] BMI 2021-09-02 15:44:00 38.78 kg/m2 [facility] Systolic blood 2021-08-31 06:30:00 119 mm[Hg] [facility] pressure Diastolic blood 2021-08-31 06:30:00 68 mm[Hg] [facility] pressure Heart rate 2021-08-31 06:30:00 70 /min [facility] Respiratory rate 2021-08-31 06:30:00 16 /min [facility] Oxygen saturation in 2021-08-31 06:30:00 97 /min [facility] Arterial blood by Pulse oximetry Body temperature 2021-08-31 04:04:09 36.83 Georgette [facility] Body height 2021-08-31 04:04:00 149.9 cm [facility] Body weight 2021-08-31 04:04:00 89.359 kg [facility] BMI 2021-08-31 04:04:00 39.79 kg/m2 [facility] Procedures Procedure Date / Time Performing Clinician Source Performed NOTICE OF PRIVACY 2022-11-07 17:30:44 Doctor Unassigned, No [facility] PRACTICES [facility] CONSENT/REFUSAL FOR 2022-11-07 17:30:27 [facility] EXTERNAL PROVIDER RECORDS 2022-02-08 05:01:00 Doctor Unassigned, No [facility] HEPATITIS A ANTIBODY, IGM 2022-01-23 15:13:00 CH I [facility] HEPATITIS B SURFACE 2022-01-23 15:13:00 [facility] HEPATITIS B CORE ANTIBODY, 2022-01-23 15:13:00 C HI [facility] HEPATITIS C ANTIBODY 2022-01-23 15:13:00 [facility] HEPATIC FUNCTION PANEL 2021-09-15 05:20:00 Niya Cartagena [facility] CBC W/PLT COUNT & AUTO 2021-09-15 05:20:00 Niya Cartagena [facility] PROTHROMBIN TIME/INR 2021-09-15 05:20:00 Kaim, Niya Cindy CH [facility] BASIC METABOLIC PANEL 2021-09-15 05:20:00 Kaim, Niya Cindy C [facility] CBC W/PLT COUNT & AUTO 2021-09-15 05:20:00 Kaim, Niya White [facility] CT ABDOMEN/PELVIS WITHOUT 2021-09-15 00:49:00 RafaelKendy CH I [facility] IV CONTRAST [facility] CBC W/PLT COUNT & AUTO 2021-09-14 08:36:00 [facility] & AUTO 2021-09-14 08:36:00 [facility] 2021-09-14 07:35:00 [facility] 2021-09-14 07:35:00 Kaim, Niya Cindy [facility] BASIC METABOLIC PANEL 2021-09-14 07:35:00 Kaim, Niya Cindy C [facility] HEPATIC FUNCTION PANEL 2021-09-13 07:14:00 Kaim, Niya [facility] CBC W/PLT COUNT & AUTO 2021-09-13 07:14:00 Kaim Niya Cindy [facility] PROTHROMBIN TIME/INR 2021-09-13 07:14:00 Kaim, Niya Cindy [facility] BASIC METABOLIC PANEL 2021-09-13 07:14:00 Kaim, Niya Cindy C [facility] CBC W/PLT COUNT & AUTO 2021-09-13 07:14:00 [facility] 2021-09-12 04:23:00 Kaim, Niya [facility] CBC W/PLT COUNT & AUTO 2021-09-12 04:23:00 [facility] PR[facility] TIME/INR 2021-09-12 04:23:00 Niya Cartagena [facility] BASIC METABOLIC PANEL 2021-09-12 04:23:00 Niya Cartagenaison C [facility] MAGNESIUM 2021-09-12 04:23:00 [facility] VITAMIN B12 2021-09-12 04:23:00 [facility] VITAMIN D, 25-HYDROXY 2021-09-12 04:23:00 Bradley [facility] C-REACTIVE PROTEIN 2021-09-12 04:23:00 [facility] CBC W/PLT COUNT & AUTO 2021-09-12 04:23:00 Mitzi Niya [facility] HEPATIC FUNCTION PANEL 2021-09-11 05:33:00 [facility] W/[facility]T COUNT & AUTO 2021-09-11 05:33:00 KaimNiya [facility] PROTHROMBIN TIME/INR 2021-09-11 05:33:00 LizzimNiyaison [facility] BASIC METABOLIC PANEL 2021-09-11 05:33:00 KaimNiyaison C [facility] MAGNESIUM 2021-09-11 05:33:00 Selma Lu [facility] CBC W/PLT COUNT & AUTO 2021-09-11 05:33:00 KaimNiyaison [facility] HEPATIC FUNCTION PANEL 2021-09-10 06:52:00 Kaim, Niya [facility] CBC W/PLT COUNT & AUTO 2021-09-10 06:52:00 Kaim, Niya [facility] PROTHROMBIN TIME/INR 2021-09-10 06:52:00 Kaim, Niya Cindy [facility] BASIC METABOLIC PANEL 2021-09-10 06:52:00 Kaim, Niya Cindy C [facility] MAGNESIUM 2021-09-10 06:52:00 AlySelma [facility] CBC W/PLT COUNT & AUTO 2021-09-10 06:52:00 [facility] 2021-09-09 05:51:00 Niya Cartagena [facility] CBC W/PLT COUNT & AUTO 2021-09-09 05:51:00 KaNiya rm [facility] PROTHROMBIN TIME/INR 2021-09-09 05:51:00 Niya Cartagena [facility] BASIC METABOLIC PANEL 2021-09-09 05:51:00 Niya Cartagena [facility] CBC W/PLT COUNT & AUTO 2021-09-09 05:51:00 Niya Cartagena [facility] (CELLAVISION MANUAL DIFF) 2021-09-09 05:51:00 Niya Cartagena [facility] AMMONIA 2021-09-08 10:54:00 Aly Selma Joana [facility] PHOSPHORUS 2021-09-08 05:14:00 Zara Mason [facility] HEPATIC FUNCTION PANEL 2021-09-08 05:14:00 Niya Cartagena [facility] CBC W/PLT COUNT & AUTO 2021-09-08 05:14:00 Niya Cartagena [facility] PROTHROMBIN TIME/INR 2021-09-08 05:14:00 Niya Cartagena [facility] BASIC METABOLIC PANEL 2021-09-08 05:14:00 Niya Cartagena [facility] CBC W/PLT COUNT & AUTO 2021-09-08 05:14:00 Niya Cartagena [facility] (CELLAVISION MANUAL DIFF) 2021-09-08 05:14:00 Niya Cartagena [facility] PHOSPHORUS 2021-09-07 05:37:00 IsabellaJuveini [facility] HEPATIC FUNCTION PANEL 2021-09-07 05:37:00 Mitzi Niya Cindy [facility] CBC W/PLT COUNT & AUTO 2021-09-07 05:37:00 Henry Cartagenaliraquel White [facility] PROTHROMBIN TIME/INR 2021-09-07 05:37:00 LizzNiya rm CH I [facility] BASIC METABOLIC PANEL 2021-09-07 05:37:00 LizzNiya rm C [facility] CBC W/PLT COUNT & AUTO 2021-09-07 05:37:00 Lizzjag Niyalilian White [facility] (CELLAVISION MANUAL DIFF) 2021-09-07 05:37:00 LizzNiya rm [facility] PROTHROMBIN TIME/INR 2021-09-06 06:37:00 LizzNiya rm [facility] BASIC METABOLIC PANEL 2021-09-06 06:37:00 Isabella Giannanalini [facility] PHOSPHORUS 2021-09-06 06:37:00 Isabella Giannanalini [facility] PROTHROMBIN TIME/INR 2021-09-05 14:31:00 Lizzjag Niya Cindy [facility] BASIC METABOLIC PANEL 2021-09-05 14:31:00 Isabella Giannanalini [facility] PHOSPHORUS 2021-09-05 14:31:00 Isabella Giannanalini [facility] CBC W/PLT COUNT & AUTO 2021-09-05 14:31:00 Juve Masonini C [facility] HEPATIC FUNCTION PANEL 2021-09-05 14:31:00 Gianna Masonnalini C [facility] CBC W/PLT COUNT & AUTO 2021-09-05 14:31:00 Juve Masonini C [facility] (CELLAVISION MANUAL DIFF) 2021-09-05 14:31:00 Gianna Masonnalin i [facility] C. DIFFICILE GDH TOXIN 2021-09-04 11:52:00 Jaqueline Vitale [facility] CT ABDOMEN/PELVIS WITH IV 2021-09-04 09:03:00 Mirian Goodman [facility] CHEST WITH IV CONTRAST 2021-09-04 09:03:00 Juve Masonin i [facility] CBC W/PLT COUNT & AUTO 2021-09-04 04:39:00 Nia Lawrence [facility] COMPREHENSIVE METABOLIC 2021-09-04 04:39:00 Nia Lawrence [facility] MAGNESIUM 2021-09-04 04:39:00 Nia Lawrence [facility] PHOSPHORUS 2021-09-04 04:39:00 Nia Lawrence [facility] CBC W/PLT COUNT & AUTO 2021-09-04 04:39:00 Nia Lawrence [facility] (CELLAVISION MANUAL DIFF) 2021-09-04 04:39:00 Nia Lawrence sa [facility] HEPATITIS A ANTIBODY, IGG 2021-09-03 12:02:00 [facility] HEPATITIS B CORE ANTIBODY, 2021-09-03 12:02:00 Laura Mason ni [facility] TOTAL [facility] HEPATITIS B SURFACE 2021-09-03 12:02:00 Zara Mason [facility] ANTIBODY [facility] HEPATITIS B SURFACE 2021-09-03 12:02:00 Gianna Masonnalnatan [facility] ANTIGEN [facility] HEPATITIS C ANTIBODY 2021-09-03 12:02:00 Gianna Masonnalini [facility] CBC W/PLT COUNT & AUTO 2021-09-03 12:01:00 Nia Lawrence [facility] COMPREHENSIVE METABOLIC 2021-09-03 12:01:00 Nia Lawrence [facility] MAGNESIUM 2021-09-03 12:01:00 Nia Lawrence [facility] PHOSPHORUS 2021-09-03 12:01:00 Nia Lawrence [facility] PROTHROMBIN TIME/INR 2021-09-03 12:01:00 Jr [facility] W/[facility]T COUNT & AUTO 2021-09-03 12:01:00 Nia Lawrence [facility] (CELLAVISION MANUAL DIFF) 2021-09-03 12:01:00 Nia Lawrence [facility] BLOOD CULTURE 2021-09-03 11:59:00 [facility] OVA AND PARASITE 2021-09-02 09:44:00 [facility] GI PATHOGEN PROFILE BY PCR 2021-09-02 09:44:00 Troy Awad [facility] BLOOD CULTURE 2021-09-02 06:03:00 [facility] W/[facility]T COUNT & AUTO 2021-09-02 06:03:00 Nia Lawrence [facility] COMPREHENSIVE METABOLIC 2021-09-02 06:03:00 Nia Lawrence [facility] MAGNESIUM 2021-09-02 06:03:00 Nia Lawrence [facility] PHOSPHORUS 2021-09-02 06:03:00 Nia Lawrencessa [facility] C-REACTIVE PROTEIN 2021-09-02 06:03:00 Nia Lawrencessa [facility] CBC W/PLT COUNT & AUTO 2021-09-02 06:03:00 Nia Lawrence [facility] (CELLAVISION MANUAL DIFF) 2021-09-02 06:03:00 Nia Lawrence [facility] IRON, TIBC, % SAT. 2021-09-02 06:01:00 Nia Lawrence [facility] (WITHOUT FERRITIN) [facility] VITAMIN B12 AND FOLATE 2021-09-02 06:01:00 Nia Lawrence [facility] CT BRAIN WITHOUT IV 2021-09-02 02:39:00 Nia Lawrence [facility] US ABDOMEN LIMITED 2021-09-02 02:09:00 Nia Lawrence [facility] URINE CULTURE 2021-09-02 01:29:00 Nia Lawrence [facility] URINALYSIS W/ REFLEX URINE 2021-09-02 01:29:00 Nia Lawrence [facility] XR CHEST 1 VIEW PORTABLE / 2021-09-02 01:02:00 Nia Lawrence [facility] BEDSIDE [facility] CBC W/PLT COUNT & AUTO 2021-09-01 22:55:00 Nia Lawrence [facility] LACTIC ACID, VENOUS 2021-09-01 22:55:00 Nia Lawrence [facility] PT/APTT 2021-09-01 22:55:00 Nia Lawrence [facility] HEPATIC FUNCTION PANEL 2021-09-01 22:55:00 Nia Lawrence [facility] BASIC METABOLIC PANEL 2021-09-01 22:55:00 Nia Lawrence [facility] MAGNESIUM 2021-09-01 22:55:00 Nia Lawrence [facility] PHOSPHORUS 2021-09-01 22:55:00 Nia Lawrence [facility] CBC W/PLT COUNT & AUTO 2021-09-01 22:55:00 Nia Lawrence [facility] (CELLAVISION MANUAL DIFF) 2021-09-01 22:55:00 Nia Lawrence sa [facility] POCT-GLUCOSE METER 2021-09-01 22:36:00 Dawna Anguiano [facility] CT ABDOMEN PELVIS WO 2021-08-31 05:50:[address] [facility] CONTRAST [place] HC COMPLETE BLD COUNT 2021-08-31 04:21:00 [facility] W/AUTO DIFF [facility] COMPREHENSIVE METABOLIC 2021-08-31 04:21:00 [facility] PANEL [facility] LACTIC ACID, I-STAT 2021-08-31 04:21:00 [facility] ESTIMATED GFR 2021-08-31 04:21:00 [facility] SPIROMETRY, DIFFUSION, 2021-08-25 19:27:26 [facility] LUNG VOLUMES, MIPS/MEPS XR CHEST 2 VW 2021-08-25 18:00:20 [facility] XR PANOREX 2021-08-25 17:59:56 [facility] POC GLUCOSE 2021-08-25 13:51:00 Jennifer Ghosh spital SALEEM-POSEY VIRUS 2021-08-25 11:08:00 [facility] ANTIBODY TEST HC COMPLETE BLD COUNT 2021-08-25 11:08:00 [facility]FF COMPREHENSIVE METABOLIC 2021-08-25 11:08:00 [facility] PROTHROMBIN TIME WITH INR 2021-08-25 11:08:00 Davina Jennifer [facility] ESTIMATED GFR 2021-08-25 11:08:00 Jennifer Ghosh Ho spital POC GLUCOSE 2021-08-25 03:18:00 Davina Jennifergeorge Corley Ho spital POC GLUCOSE 2021-08-25 00:22:00 Davina Jennifergeorge Corley Ho spital POC GLUCOSE 2021-08-24 19:43:00 Jennifer Ghosh spital CREATININE LEVEL, URINE, 2021-08-24 18:13:00 Jennifer Ghosh [facility] TIMED PROTEIN, URINE, TIMED 2021-08-24 18:13:00 [facility] CORONARY 2021-08-24 16:44:00 [facility] ANGIOGRAPHY [place] HC COMPLETE BLD COUNT 2021-08-24 11:01:00 [facility]O DIFF [facility] BASIC METABOLIC PANEL 2021-08-24 11:01:00 [facility] FUNCTION PANEL 2021-08-24 11:01:00 [facility] MAGNESIUM LEVEL 2021-08-24 11:01:00 Jory Girard [facility] PROTHROMBIN TIME WITH INR 2021-08-24 11:01:00 [facility] ESTIMATED GFR 2021-08-24 11:01:00 Jory Girard [facility] POC GLUCOSE 2021-08-24 03:07:00 Jennifer Ghosh spital POC GLUCOSE 2021-08-24 00:11:00 Jennifer Ghosh COVID-19 QUALITATIVE 2021-08-23 22:15:00 Dayo Moeller [facility] RT-PCR POC GLUCOSE 2021-08-23 19:17:00 Jennifer Ghosh Ho spital POC GLUCOSE 2021-08-23 14:05:00 Jennifer Ghoshtal HC COMPLETE BLD COUNT 2021-08-23 11:49:00 Ting Pierson [facility] W/AUTO DIFF [facility] BASIC METABOLIC PANEL 2021-08-23 11:49:00 [facility] HEPATIC FUNCTION PANEL 2021-08-23 11:49:00 [facility] MAGNESIUM LEVEL 2021-08-23 11:49:00 Jory Girard [facility] PROTHROMBIN TIME WITH INR 2021-08-23 11:49:00 [facility] ALPHA FETOPROTEIN 2021-08-23 11:49:00 Annette Mayorga [facility] ALPHA-1 ANTITRYPSIN LEVEL 2021-08-23 11:49:00 Mukesh [facility] ANTI SMOOTH MUSCLE AB 2021-08-23 11:49:00 [facility] SCREEN C-REACTIVE PROTEIN 2021-08-23 11:49:00 [facility] CANCER ANTIGEN 125 2021-08-23 11:49:00 [facility] CANCER ANTIGEN 19-9 2021-08-23 11:49:00 [facility] CARCINOEMBRYONIC ANTIGEN 2021-08-23 11:49:00 [facility] (CEA) CERULOPLASMIN LEVEL 2021-08-23 11:49:00 [facility] CORTISOL LEVEL, RANDOM 2021-08-23 11:49:00 [facility] CORTISOL, FREE BY 2021-08-23 11:49:00 [facility] ED/LC-MS/MS CYTOMEGALOVIRUS AB, IGG 2021-08-23 11:49:00 [facility] CYTOMEGALOVIRUS AB, IGM 2021-08-23 11:49:00 [facility] DRUG KMI 9, SER/THAIS, SCRN 2021-08-23 11:49:00 [facility] W/RFLX TO CONF FERRITIN LEVEL 2021-08-23 11:49:00 [facility] FIBRINOGEN 2021-08-23 11:49:00 [facility] HEPATITIS A ANTIBODY IGM 2021-08-23 11:49:00 [facility] HEPATITIS A ANTIBODY TOTAL 2021-08-23 11:49:00 [facility] HEPATITIS B CORE ANTIBODY 2021-08-23 11:49:00 [facility] TOTAL HEPATITIS B SURFACE 2021-08-23 11:49:00 [facility] ANTIBODY HEPATITIS B SURFACE 2021-08-23 11:49:00 [facility] ANTIGEN HEPATITIS C ANTIBODY 2021-08-23 11:49:00 [facility] HIV AG/AB COMBINATION 2021-08-23 11:49:00 [facility] HIV-1 RNA, QUALITATIVE TMA 2021-08-23 11:49:00 [facility] HLA TRANSPLANT EVALUATION 2021-08-23 11:49:00 [facility] LIPID PANEL 2021-08-23 11:49:00 [facility] BARBITURATES, S/P, QUANT 2021-08-23 11:49:00 [facility] PARTIAL THROMBOPLASTIN 2021-08-23 11:49:00 [facility] TIME (PTT) PHOSPHATIDYLETHANOL, BLOOD 2021-08-23 11:49:00 [facility] PHOSPHORUS LEVEL 2021-08-23 11:49:00 [facility] PREALBUMIN LEVEL 2021-08-23 11:49:00 [facility] SERUM ELECTROPHORESIS 2021-08-23 11:49:00 [facility] SYPHILIS TREPONEMA SCREEN 2021-08-23 11:49:00 [facility] WITH RPR CONFIRMATION (REVERSE ALGORITHM) T3, FREE 2021-08-23 11:49:00 [facility] TB T-SPOT 2021-08-23 11:49:00 [facility] TOTAL IRON BINDING 2021-08-23 11:49:00 [facility] CAPACITY ZINC LEVEL, SERUM 2021-08-23 11:49:00 [facility] ESTIMATED GFR 2021-08-23 11:49:00 Jory Girard SINGLE ANTIGEN BEADS 2021-08-23 11:49:00 [facility] C1Q CLASS 1 & 2 ANTIBODY 2021-08-23 11:49:[address] [facility] CT CHEST WO CONTRAST 2021-08-23 04:25:00 [facility]SE 2021-08-23 02:55:00 Jennifer Ghosh US CAROTID DUPLEX 2021-08-23 02:40:00 [facility] BILATERAL TTE COMPLETE, WO CONTRAST, 2021-08-22 23:47:00 Calos Garcia [facility] W AGITATED SALINE ([id number]) US ABDOMEN COMPLETE 2021-08-22 22:30:00 Jose [facility] ECG 12-LEAD 2021-08-22 21:31:09 [facility] POC GLUCOSE 2021-08-22 13:43:00 Jennifer Ghosh spital HC COMPLETE BLD COUNT 2021-08-22 10:59:00 [facility]/AUTO DIFF [facility] BASIC METABOLIC PANEL 2021-08-22 10:59:00 [facility]EL 2021-08-22 10:59:00 [facility] MAGNESIUM LEVEL 2021-08-22 10:59:00 [facility] PHOS[facility]ORUS LEVEL 2021-08-22 10:59:00 [facility] WITH INR 2021-08-22 10:59:00 [facility] ESTIMATED GFR 2021-08-22 10:59:00 Jory Girard spital [facility] POC GLUCOSE 2021-08-22 03:06:00 Jennifer Ghosh Ho spital POC GLUCOSE 2021-08-22 00:27:00 Jennifer Ghosh Ho spital POC GLUCOSE 2021-08-21 19:09:00 Jennifer Ghosh spital POC GLUCOSE 2021-08-21 13:46:00 Jory Girard spital [facility] HC COMPLETE BLD COUNT 2021-08-21 10:56:[address] [facility]FF [facility] BASIC METABOLIC PANEL 2021-08-21 10:56:00 [facility] FUNCTION PANEL 2021-08-21 10:56:00 [facility] MAGNESIUM LEVEL 2021-08-21 10:56:00 Jory Girard spital [place] PHOSPHORUS LEVEL 2021-08-21 10:56:00 Jory Girard H ospital [facility] PROTHROMBIN TIME WITH INR 2021-08-21 10:56:00 [facility] ESTIMATED GFR 2021-08-21 10:56:00 Jory Girard spital [place] POC GLUCOSE 2021-08-21 03:20:00 Jory Girard spital [place] POC GLUCOSE 2021-08-20 14:56:00 Jennifer Ghosh Ho spital HC COMPLETE BLD COUNT 2021-08-20 10:57:00 Ting Pierson [facility]/AUTO DIFF [facility] BASIC METABOLIC PANEL 2021-08-20 10:57:00 [facility] HEPATIC FUNCTION PANEL 2021-08-20 10:57:00 [facility] MAGNESIUM LEVEL 2021-08-20 10:57:00 Jory Girard spital [place] PHOSPHORUS LEVEL 2021-08-20 10:57:00 Jory Girard ospital [place] PROTHROMBIN TIME WITH INR 2021-08-20 10:57:00 [facility] ESTIMATED GFR 2021-08-20 10:57:00 Jory Girard spital [place] POC GLUCOSE 2021-08-20 02:42:00 Jory Girard spital [place] POC GLUCOSE 2021-08-19 20:04:00 Jory Girard spital [place] HC COMPLETE BLD COUNT 2021-08-19 11:38:00 Ting Dangelo [facility]/AUTO DIFF [facility] BASIC METABOLIC PANEL 2021-08-19 11:38:00 [facility] Dangelo [facility] HEPATIC FUNCTION PANEL 2021-08-19 11:38:00 Ting DangeloFormerly [facility] [place] MAGNESIUM LEVEL 2021-08-19 11:38:00 Jory Girard Ho spital [place] PHOSPHORUS LEVEL 2021-08-19 11:38:00 Jory Girard [facility] PROTHROMBIN TIME WITH INR 2021-08-19 11:38:00 [facility] ESTIMATED GFR 2021-08-19 11:38:00 Jory Girard POC GLUCOSE 2021-08-19 03:14:00 Jory Girard spimateo [place] POC GLUCOSE 2021-08-18 23:30:00 Jory Girard spital [place] POC GLUCOSE 2021-08-18 15:37:00 Ting Jory Pierson URINE CULTURE 2021-08-18 12:53:00 Ting Jory Pierson URINALYSIS SCREEN AND 2021-08-18 11:31:00 [facility] MICROSCOPY, WITH REFLEX TO [facility] CULTURE LACTIC ACID LEVEL, SEPSIS 2021-08-18 10:21:00 Orladno Balderrama [facility] - NOW AND REPEAT 2X EVERY 3 HOURS HC COMPLETE BLD COUNT 2021-08-18 10:21:00 [facility] W/AUTO DIFF [place] BASIC METABOLIC PANEL 2021-08-18 10:21:00 [facility] HEPATIC FUNCTION PANEL 2021-08-18 10:21:00 [facility] MAGNESIUM LEVEL 2021-08-18 10:21:00 Jory Girard PHOSPHORUS LEVEL 2021-08-18 10:21:00 Jory Girard ospimateo Self PROTHROMBIN TIME WITH INR 2021-08-18 10:21:00 [facility] ESTIMATED GFR 2021-08-18 10:21:00 Jory Girard LACTIC ACID LEVEL, SEPSIS 2021-08-18 07:56:00 Orlando Balderrama [facility] - NOW AND REPEAT 2X EVERY 3 HOURS BLOOD CULTURE, AEROBIC & 2021-08-18 05:00:00 [facility] [place] ECG 12-LEAD 2021-08-18 04:24:58 [facility] CT ABDOMEN PELVIS WO 2021-08-18 04:19:03 [facility] CONTRAST CT HEAD WO CONTRAST 2021-08-18 04:18:21 [facility] LACTIC ACID LEVEL, SEPSIS 2021-08-18 03:37:00 [facility] - NOW AND REPEAT 2X EVERY 3 HOURS B NATRIURETIC PEPTIDE 2021-08-18 03:37:00 [facility] PROTHROMBIN TIME WITH INR 2021-08-18 03:20:00 [facility] AMMONIA LEVEL 2021-08-18 03:20:00 [facility] TROPONIN T 2021-08-18 03:20:00 [facility] XR CHEST 1 VW PORTABLE 2021-08-18 03:14:19 [facility] HC COMPLETE BLD COUNT 2021-08-18 03:03:00 [facility] W/AUTO DIFF COMPREHENSIVE METABOLIC 2021-08-18 03:03:00 [facility] PANEL ESTIMATED GFR 2021-08-18 03:03:00 [facility] RESPIRATORY PATHOGEN PANEL 2021-08-18 03:03:00 [facility] WITH COVID-19 RT-PCR ECG ED PRELIMINARY 2021-08-18 02:54:33 [facility] INTERPRETATION COVID-19 QUALITATIVE 2021-08-11 05:31:00 [facility] COMPREHENSIVE METABOLIC 2021-08-11 05:30:00 [facility]EL [facility] HC COMPLETE BLD COUNT 2021-08-11 05:30:00 [facility] W/AUTO DIFF [facility] LACTIC AC[facility], I-STAT 2021-08-11 05:30:00 [facility] ESTIMATED GFR 2021-08-11 05:30:00 [facility] ECG 12-LEAD 2021-08-11 05:15:35 [facility] URINALYSIS 2021-08-11 05:00:00 [facility] XR CHEST 1 VW PORTABLE 2021-08-11 04:27:00 [facility] LACTIC ACID, I-STAT 2021-06-28 22:37:00 Romero Limon [facility] URINALYSIS 2021-06-28 21:45:00 Romero Limon shane HC COMPLETE BLD COUNT 2021-06-28 20:01:00 Romero Limon [facility] W/AUTO DIFF PROTHROMBIN TIME WITH INR, 2021-06-28 20:01:[address] [facility] I-STAT COMPREHENSIVE METABOLIC 2021-06-28 20:01:00 Romero Limon [facility] PANEL LACTIC ACID, I-STAT 2021-06-28 20:01:00 Romero Limon [facility] SEDIMENTATION RATE 2021-06-28 20:01:00 Romero Limon [facility] ESTIMATED GFR 2021-06-28 20:01:00 Romero Limon spital COVID-19 QUALITATIVE 2021-06-28 20:01:00 Romero Limon [facility] RT-PCR BLOOD CULTURE, AEROBIC & 2021-06-28 20:01:00 Romero Limon [facility] ANAEROBIC HC COMPLETE BLD COUNT 2021-06-21 11:20:[address] [facility] W/AUTO DIFF [facility] BASIC METABOLIC PANEL 2021-06-21 11:20:00 Rolando [facility] HEPATIC FUNCTION PANEL 2021-06-21 11:20:00 Dinakar, [facility] MAGNESIUM LEVEL 2021-06-21 11:20:00 Dinakar, [facility] PROTHROMBIN TIME WITH INR 2021-06-21 11:20:00 Dinakar, [facility] PHOSPHORUS LEVEL 2021-06-21 11:20:00 Dinakar, Pierce Corley ospital [place] ESTIMATED GFR 2021-06-21 11:20:00 Dinakar, Pierce Corley [facility] PHOSPHATIDYLETHANOL, BLOOD 2021-06-21 11:20:00 [facility] URINE DRUGS OF ABUSE 2021-06-21 10:11:00 [facility] SCREEN URINALYSIS SCREEN AND 2021-06-21 10:10:00 [facility] MICROSCOPY, WITH REFLEX TO CULTURE URINE CULTURE 2021-06-21 10:10:00 [facility] COVID-19 SEROLOGY PATIENT 2021-06-20 17:52:00 Dinakar, [facility] SURVEILLANCE [facility] COVID-19 ANTI-SPIKE IGG 2021-06-20 17:52:00 Dinakar, [facility] ANTIBODY TITER [facility] HC COMPLETE BLD COUNT 2021-06-20 11:03:00 Dinakar, [facility] W/AUTO DIFF [facility] BASIC METABOLIC PANEL 2021-06-20 11:03:00 Dinakar, [facility] HEPATIC FUNCTION PANEL 2021-06-20 11:03:00 Dinakar, [facility] MAGNESIUM LEVEL 2021-06-20 11:03:00 Dinakar, Pierce Jew [facility] PROTHROMBIN TIME WITH INR 2021-06-20 11:03:00 Dinakar, [facility] PHOSPHORUS LEVEL 2021-06-20 11:03:00 Dinakar, Pierce Jew ospital [place] ESTIMATED GFR 2021-06-20 11:03:00 Dinakar, Pierce Corley shane [place] XR ABDOMEN 1 VW PORTABLE 2021-06-20 00:11:[address] [facility] AMMONIA LEVEL 2021 11:27:00 Jennifer Ghosh Jew Ho spital HC COMPLETE BLD COUNT 2021 [facility]:24[facility] DIFF PROTHROMBIN TIME WITH INR 2021 [facility]24[facility] 2021 11:24:00 Davina Jennifer [facility] PANEL PHOSPHORUS LEVEL 2021 11:24:00 [facility]inaJennfier [facility] MAGNESIUM LEVEL 2021 11:24:00 [facility] HEMOGLOBIN A1C 2021 11:24:00 Jennifer [facility] spital THYROID STIMULATING 2021 11:24:00 [facility] HORMONE T4 2021 11:24:00 [facility] VITAMIN D 25 HYDROXY LEVEL 2021 11:24:00 [facility] ESTIMATED GFR 2021 11:24:00 [facility] LACTIC ACID, I-STAT 2021 01:31:00 [facility] COVID-19 QUALITATIVE 2021 01:21:00 Diana Bangura [facility] RT-PCR CLOSTRIDIUM DIFFICILE 2021 00:30:00 Diana Bangura [facility] TOXIN ENTERIC BACTERIAL PANEL 2021 00:30:00 Diana Bangura [facility] URINALYSIS 2021 00:09:00 Diana Bangura [facility] METABOLIC 2021-06-18 22:51:00 Diana Bangura Bin [facility] PANEL AMYLASE LEVEL 2021-06-18 22:51:00 Diana Bangura [facility] ESTIMATED GFR 2021-06-18 22:51:00 Diana Bangura [facility] HC COMPLETE BLD COUNT 2021-06-18 21:51:00 Willem, [facility] W/AUTO DIFF COMPREHENSIVE METABOLIC 2021-06-18 21:51:00 [facility] LACTIC ACID, I-STAT 2021-06-18 21:51:00 Jennifer Ghosh [facility] AMYLASE LEVEL 2021-06-18 21:51:00 Diana Bangura Bin [facility] ESTIMATED GFR 2021-06-18 21:51:00 Diana Bangura [facility] AMMONIA LEVEL 2021-06-18 21:47:00 Diana Bangura [facility] HC COMPLETE BLD COUNT 2021-06-02 09:45:00 [facility] W/AUTO DIFF PROTHROMBIN TIME WITH INR 2021-06-02 09:45:00 [facility] BASIC METABOLIC PANEL 2021-06-02 09:45:00 [facility] HEPATIC FUNCTION PANEL 2021-06-02 09:45:00 [facility] PHOSPHORUS LEVEL 2021-06-02 09:45:00 [facility] MAGNESIUM LEVEL 2021-06-02 09:45:00 [facility] ESTIMATED GFR 2021-06-02 09:45:00 [facility]ital US ABDOMINAL LIMITED 2021-06-01 21:06:20 Joana Ling [facility] VENIPUNC NEED PHYS 2021-06-01 14:32:45 Linda Torres [facility] SKILL,DX OR RX HC COMPLETE BLD COUNT 2021-06-01 10:30:00 [facility] W/AUTO DIFF PROTHROMBIN TIME WITH INR 2021-06-01 10:30:00 [facility] BASIC METABOLIC PANEL 2021-06-01 10:30:00 [facility] HEPATIC FUNCTION PANEL 2021-06-01 10:30:00 [facility] PHOSPHORUS LEVEL 2021-06-01 10:30:00 [facility] MAGNESIUM LEVEL 2021-06-01 10:30:00 [facility]ital HEMOGLOBIN A1C 2021-06-01 10:30:00 [facility] THYROID STIMULATING 2021-06-01 10:30:00 [facility] HORMONE T4 2021-06-01 10:30:00 [facility]ital VITAMIN D 25 HYDROXY LEVEL 2021-06-01 10:30:00 [facility] ZINC LEVEL, SERUM 2021-06-01 10:30:00 [facility] ALPHA FETOPROTEIN 2021-06-01 10:30:00 [facility] AMMONIA LEVEL 2021-06-01 10:30:00 [facility]ital ESTIMATED GFR 2021-06-01 10:30:00 [facility]ital PHOSPHATIDYLETHANOL, BLOOD 2021-06-01 10:30:00 [facility] URINE CULTURE 2021-06-01 02:48:00 [facility] BLOOD CULTURE, AEROBIC & 2021-06-01 02:43:00 [facility] ANAEROBIC BLOOD CULTURE, AEROBIC & 2021-06-01 02:42:00 [facility] ANAEROBIC URINALYSIS SCREEN AND 2021-06-01 02:40:00 [facility] MICROSCOPY, WITH REFLEX TO CULTURE URINE DRUGS OF ABUSE 2021-06-01 02:40:00 [facility] SCREEN URIC ACID LEVEL 2021-06-01 02:38:00 [facility]ital PROTHROMBIN TIME WITH INR 2021-06-01 02:38:00 [facility] PHOSPHORUS LEVEL 2021-06-01 02:38:00 [facility] PARTIAL THROMBOPLASTIN 2021-06-01 02:38:00 [facility] TIME (PTT) MAGNESIUM LEVEL 2021-06-01 02:38:00 [facility]ital HEPATIC FUNCTION PANEL 2021-06-01 [facility]:38[facility] 2021-06-01 02:38:00 [facility] LACTIC ACID LEVEL 2021-06-01 02:38:00 [facility] FIBRINOGEN 2021-06-01 02:38:00 [facility] HC COMPLETE BLD COUNT 2021-06-01 02:38:00 [facility] W/AUTO DIFF BASIC METABOLIC PANEL 2021-06-01 02:38:00 [facility] AMMONIA LEVEL 2021-06-01 02:38:00 [facility] ESTIMATED GFR 2021-06-01 02:38:00 [facility] COVID-19 SEROLOGY PATIENT 2021-06-01 02:38:00 [facility] SURVEILLANCE COVID-19 ANTI-SPIKE IGG 2021-06-01 02:38:00 [facility] ANTIBODY TITER ECG 12-LEAD 2021-06-01 01:06:10 [facility] XR ABDOMEN 1 VW PORTABLE 2021-06-01 01:06:00 [facility] XR CHEST 1 VW PORTABLE 2021-06-01 01:02:00 [facility] COVID-19 QUALITATIVE 2021-06-01 00:37:00 [facility] RT-PCR HC COMPLETE BLD COUNT 2021-05-27 10:09:00 [facility] W/AUTO DIFF [facility] BASIC METABOLIC PANEL 2021-05-27 10:09:00 [facility] HEPATIC FUNCTION PANEL 2021-05-27 10:09:00 [facility] [place] MAGNESIUM LEVEL 2021-05-27 10:09:00 Jory Girard PHOSPHORUS LEVEL 2021-05-27 10:09:00 Jory Girard ospimateo Self PROTHROMBIN TIME WITH INR 2021-05-27 10:09:00 [facility] [place] ESTIMATED GFR 2021-05-27 10:09:00 Jory Girard VENOUS BLOOD GAS 2021-05-26 23:37:00 Nia Faustin COMPLETE BLD COUNT 2021-05-26 09:02:00 [facility] W/AUTO DIFF [place] PROTHROMBIN TIME WITH INR 2021-05-26 09:02:00 [facility] COVID-19 SEROLOGY PATIENT 2021-05-26 09:02:00 Abe Partida [facility] SURVEILLANCE Tom SMEAR REVIEW 2021-05-26 09:02:00 Jory Girard PHOSPHATIDYLETHANOL, BLOOD 2021-05-26 09:02:00 Palak Mayorga [facility] COVID-19 ANTI-SPIKE IGG 2021-05-26 09:02:00 Abe Partida [facility] ANTIBODY TITER Tom BASIC METABOLIC PANEL 2021-05-26 09:00:00 [facility] HEPATIC FUNCTION PANEL 2021-05-26 09:00:00 [facility] [place] MAGNESIUM LEVEL 2021-05-26 09:00:00 Jory Girard [place] PHOSPHORUS LEVEL 2021-05-26 09:00:00 Jory Girard ALPHA FETOPROTEIN 2021-05-26 09:00:[facility] SERUM 2021-05-26 09:00:00 [facility] ESTIMATED GFR 2021-05-26 09:00:00 Jory Girard URINALYSIS SCREEN AND 2021-05-25 23:41:00 [facility] MICROSCOPY, WITH REFLEX TO [facility] CULTURE URINE DRUGS OF ABUSE 2021-05-25 23:41:00 Ting Pierson [facility] SCREEN [place] URINE CULTURE 2021-05-25 23:41:00 Jory Girard US HEPATIC 2021-05-25 20:43:26 Jory Girard US ABDOMINAL DOPPLER 2021-05-25 20:40:00 Ting Pierson [facility] HC COMPLETE BLD COUNT 2021-05-25 18:10:00 Ting Dangelo [facility] W/AUTO DIFF [place] SMEAR REVIEW 2021-05-25 18:10:00 Jory Giarrd spimateo [place] VENIPUNC NEED PHYS 2021-05-25 15:59:39 Tristin Hunt [facility] SKILL,DX OR RX CBC WITH PLATELET AND 2021-05-25 13:57:[address] [facility] DIFFERENTIAL [facility] COMPREHENSIVE METABOLIC 2021-05-25 13:57:00 [facility] PANEL [place] ESTIMATED GFR 2021-05-25 13:57:00 [facility] [place] LACTIC ACID, I-STAT 2021-05-25 00:58:00 Romero Limon [facility] COVID-19 QUALITATIVE 2021-05-25 00:00:00 Romero Limon [facility] RT-PCR CT ABDOMEN PELVIS WO 2021-05-24 23:16:57 Romero Limon [facility] CONTRAST URINALYSIS 2021-05-24 22:19:00 Romero Limon HC COMPLETE BLD COUNT 2021-05-24 22:13:00 Romero Limon [facility] W/AUTO DIFF COMPREHENSIVE METABOLIC 2021-05-24 22:13:00 Romero Limon [facility] PANEL AMYLASE LEVEL 2021-05-24 22:13:00 [facility], [facility]-STAT 2021-05-24 22:13:00 Romero Limon [facility] ESTIMATED GFR 2021-05-24 22:13:00 Romero Limon shane BLOOD CULTURE, AEROBIC & 2021-05-24 22:00:00 Romero Limon [facility] ANAEROBIC CBC HEMOGRAM 2020-11-23 05:55:00 Jory Girardalo PROTHROMBIN TIME WITH INR 2020-11-23 05:55:00 [facility] [place] COMPREHENSIVE METABOLIC 2020-11-23 05:55:00 [facility] PANEL [facility] ESTIMATED GFR 2020-11-23 05:55:[address] [facility] COVID-19 QUALITATIVE 2020-11-23 01:57:00 Wild Kovacs [facility] RT-PCR Tomi[place] LACTIC ACID, I-STAT 2020-11-23 01:40:00 Romero Limon [facility] CT HEAD WO CONTRAST 2020-11-22 23:20:00 Romero Limon [facility] HC COMPLETE BLD COUNT 2020-11-22 22:53:00 Romero Limon [facility] W/AUTO DIFF COMPREHENSIVE METABOLIC 2020-11-22 22:53:00 Romero Limon [facility] PANEL LACTIC ACID, I-STAT 2020-11-22 22:53:00 Romero Limon [facility] AMMONIA LEVEL 2020-11-22 22:53:00 Romero Limontal VENOUS BLOOD GAS 2020-11-22 22:53:00 Romero Limon H ospital ESTIMATED GFR 2020-11-22 22:53:00 Romero Limon spimateo XR ABDOMEN ACUTE INC CHEST 2020-11-02 22:51:00 Cliff Levy [facility] 1V ESTIMATED GFR 2020-11-02 21:55:00 Calos Garcia [facility] HC COMPLETE BLD COUNT 2020-11-02 21:55:00 Calos Garcia [facility] W/AUTO DIFF COMPREHENSIVE METABOLIC 2020-11-02 21:55:00 [facility] PANEL PROTHROMBIN TIME WITH INR 2020-11-02 21:55:00 [facility] COVID-19 QUALITATIVE 2020-11-02 21:05:00 [facility] RT-PCR NM BRAIN SPECT W I 123 2020-10-26 19:02:00 Cliff Levy [facility] DATSCAN HC COMPLETE BLD COUNT 2020-10-24 10:15:00 [facility] W/AUTO DIFF BASIC METABOLIC PANEL 2020-10-24 10:15:00 [facility] HEPATIC FUNCTION PANEL 2020-10-24 10:15:00 [facility] MAGNESIUM LEVEL 2020-10-24 10:15:00 [facility] ospital PHOSPHORUS LEVEL 2020-10-24 10:15:00 [facility] PROTHROMBIN TIME WITH INR 2020-10-24 10:15:00 [facility] HEMOGLOBIN A1C 2020-10-24 10:15:00 [facility] ospital THYROID STIMULATING 2020-10-24 10:15:00 [facility] HORMONE T4 2020-10-24 10:15:00 [facility] ospital VITAMIN D 25 HYDROXY LEVEL 2020-10-24 10:15:00 [facility] ZINC LEVEL, SERUM 2020-10-24 10:15:00 [facility] ALPHA FETOPROTEIN 2020-10-24 10:15:00 [facility] ESTIMATED GFR 2020-10-24 10:15:00 [facility] o[facility]ital URINE DRUGS OF ABUSE 2020-10-24 10:00:00 [facility] SCREEN LACTIC ACID LEVEL, SEPSIS 2020-10-24 06:20:00 [facility] - NOW AND REPEAT 2X EVERY 3 HOURS LACTIC ACID LEVEL, SEPSIS 2020-10-24 02:25:00 York, [facility] - NOW AND REPEAT 2X EVERY 3 HOURS XR CHEST 1 VW PORTABLE 2020-10-24 00:08:00 Rehrer, [facility] BLOOD CULTURE, AEROBIC & 2020-10-23 23:31:00 Rehrer, [facility] ANAEROBIC RESPIRATORY PATHOGEN PANEL 2020-10-23 23:31:00 Rehrer, [facility] WITH COVID-19 RT-PCR COMPREHENSIVE METABOLIC 2020-10-23 23:31:00 Rehrer, [facility] PANEL PHOSPHORUS LEVEL 2020-10-23 23:31:00 Rehrer, [facility] MAGNESIUM LEVEL 2020-10-23 23:31:00 Rehrer, [facility] LACTIC ACID LEVEL, SEPSIS 2020-10-23 23:31:00 Chela [facility] - NOW AND REPEAT 2X EVERY 3 HOURS LIPASE LEVEL 2020-10-23 23:31:00 Rehrer, [facility] ESTIMATED GFR 2020-10-23 23:31:00 Rehrer, [facility] HC COMPLETE BLD COUNT 2020-10-23 23:20:00 Rehrer, [facility] W/AUTO DIFF PROTHROMBIN TIME WITH INR 2020-10-23 23:20:00 Rehrer, [facility] PARTIAL THROMBOPLASTIN 2020-10-23 23:20:00 Rehrer, [facility] TIME (PTT) AMMONIA LEVEL 2020-10-23 23:20:00 Rehrer, [facility] HC COMPLETE BLD COUNT 2020-10-10 00:05:00 [facility] W/AUTO DIFF COMPREHENSIVE METABOLIC 2020-10-10 00:05:00 [facility] PANEL LACTIC ACID, I-STAT 2020-10-10 00:05:00 [facility] AMMONIA LEVEL 2020-10-10 00:05:00 [facility] ESTIMATED GFR 2020-10-10 00:05:00 [facility]ude[facility] URINALYSIS 2020-10-09 23:32:00 [facility] ECG 12-LEAD 2020-10-09 23:18:11 Azevedo [facility] HC COMPLETE BLD COUNT 2020-09-21 10:28:00 [facility] W/AUTO DIFF BASIC METABOLIC PANEL 2020-09-21 10:28:00 [facility] HEPATIC FUNCTION PANEL 2020-09-21 10:28:00 [facility] MAGNESIUM LEVEL 2020-09-21 10:28:00 [facility] ospital PHOSPHORUS LEVEL 2020-09-21 10:28:00 [facility] PROTHROMBIN TIME WITH INR 2020-09-21 10:28:00 [facility] MISCELLANEOUS REFERRAL 2020-09-21 10:28:00 [facility] TEST VITAMIN B12 LEVEL 2020-09-21 10:28:00 [facility] FOLATE LEVEL 2020-09-21 10:28:00 [facility] ospital ESTIMATED GFR 2020-09-21 10:28:00 [facility] ospital COVID-19 QUALITATIVE 2020-09-20 20:51:00 Robby Perez [facility] RT-PCR Gabriel HC COMPLETE BLD COUNT 2020-09-20 12:08:00 [facility] W/AUTO DIFF BASIC METABOLIC PANEL 2020-09-20 12:08:00 [facility] HEPATIC FUNCTION PANEL 2020-09-20 12:08:00 [facility] MAGNESIUM LEVEL 2020-09-20 12:08:00 [facility] ospital PHOSPHORUS LEVEL 2020-09-20 12:08:00 [facility] PROTHROMBIN TIME WITH INR 2020-09-20 12:08:00 [facility] HEMOGLOBIN A1C 2020-09-20 12:08:00 [facility] ospital THYROID STIMULATING 2020-09-20 12:08:00 [facility] HORMONE T4 2020-09-20 12:08:00 [facility] o[facility]ital VITAMIN D 25 HYDROXY LEVEL 2020-09-20 12:08:00 [facility] ZINC LEVEL, SERUM 2020-09-20 12:08:00 [facility] ALPHA FETOPROTEIN 2020-09-20 12:08:00 [facility] ESTIMATED GFR 2020-09-20 12:08:[address] [facility] ospital CT CERVICAL SPINE WO 2020-09-20 06:50:26 [facility] PELVIS WO CONTRAST 2020-09-20 06:50:16 Marcel [facility] CT HEAD WO CONTRAST 2020-09-20 06:50:[address] [facility]ARE, E/M 2020-09-20 04:05:41 Marcel [facility] 30-74 MINUTES Renee URINE CULTURE 2020-09-20 04:00:00 Bonny Rod Ho spital [place] URINALYSIS SCREEN AND 2020-09-20 04:00:00 Marcel [facility] MICROSCOPY, WITH REFLEX TO Renee CULTURE URINE DRUGS OF ABUSE 2020-09-20 04:00:00 [facility] [place] MAGNESIUM LEVEL 2020-09-20 04:00:00 Bonny Rod Ho spital [place] TROPONIN 2020-09-20 04:00:00 Bonny Rod Ho spital [place] XR KNEE 3 VW LEFT 2020-09-20 02:06:29 Marcel [facility] XR KNEE 3 VW RIGHT 2020-09-20 02:06:09 Marcel [facility] XR SHOULDER 2+ VW RIGHT 2020-09-20 02:05:46 Marcel [facility] HC COMPLETE BLD COUNT 2020-09-20 02:05:00 Marcel [facility] W/AUTO DIFF [facility] PROTHROMBIN TIME WITH INR 2020-09-20 02:05:00 Bonny Rod [facility] PARTIAL THROMBOPLASTIN 2020-09-20 02:05:00 [facility] TIME (PTT[facility] COMPREHENSIVE METABOLIC 2020-09-20 02:05:00 Marcel [facility] PANEL [place]e TROPONIN 2020-09-20 02:05:00 Bonny Rod shane Duran B NATRIURETIC PEPTIDE 2020-09-20 02:05:00 Bonny Rod [facility] AMMONIA LEVEL 2020-09-20 02:05:00 Bonny Rod spimateo [place]e ALCOHOL LEVEL, BLOOD 2020-09-20 02:05:00 [facility] 2020-09-20 02:05:00 Bonny Rod spital [place] Plan of Care Planned Activity Planned Date Details Comments Source Future Scheduled 2024-08-23 Lipid panel (procedure) [facility] 00:00:00 [code = [id number]] Medical Ce nter Future Scheduled 2024-08-23 Lipid panel (procedure) [facility] 00:00:00 [code = [id number]] Medical Ce nter Future Scheduled 2024-08-23 Lipid panel (procedure) [facility] 00:00:00 [code = [id number]] Medical Ce nter Future Scheduled 2024-08-23 Lipid panel (procedure) [facility] 00:00:00 [code = [id number]] Medical Ce nter Future Scheduled 2024-08-23 Lipid panel (procedure) [facility] 00:00:00 [code = [id number]] Medical Ce nter Future Scheduled 2024-08-23 Lipid panel (procedure) [facility] 00:00:00 [code = [id number]] Medical Ce nter Future Scheduled 2023-04-12 INFLUENZA VACCINE (Season [facility] 00:00:00 Ended) [code = INFLUENZA Med ical Center VACCINE (Season Ended)] Future Scheduled 2023-04-12 INFLUENZA VACCINE (Season [facility] 00:00:00 Ended) [code = INFLUENZA Med ical Center VACCINE (Season Ended)] Future Scheduled 2023-04-12 Influenza Vaccine (#1) [facility]00 [code = Influenza Vaccine Me dical Center (#1)] Future Scheduled 2022-08-[address] [facility] 00:00:00 (12+) [code = DEPRESSION Med ical Center SCREENING (12+)] Future Scheduled 2022-08-[address] [facility] 00:00:00 (12+) [code = DEPRESSION Med ical Center SCREENING (12+)] Future Scheduled 2022-08-[address] [facility] 00:00:00 (12+) [code = DEPRESSION Med ical Center SCREENING (12+)] Future Scheduled 2022-04-12 INFLUENZA VACCINE (#1) [facility] 00:00:00 [code = INFLUENZA VACCINE Me dical Center (#1)] Future Scheduled 2022-04-12 INFLUENZA VACCINE (#1) [facility] 00:00:00 [code = INFLUENZA VACCINE Me dical Center (#1)] Future Scheduled 2022-04-12 INFLUENZA VACCINE (#1) [facility] 00:00:00 [code = INFLUENZA VACCINE Me dical Center (#1)] Future Scheduled 2021-09-12 COLONOSCOPY SCREENING [facility] 12:13:11 [code = COLONOSCOPY Hospital SCREENING] Future Scheduled 2021-09-12 SHINGLES VACCINES (#1) M ethodist Test 12:13:11 [code = SHINGLES VACCINES Ho spital (#1)] Future Scheduled 2021-09-12 BREAST CANCER SCREENING [facility] Test 12:13:11 [code = BREAST CANCER Hospit al SCREENING] Future Scheduled 2021-09-12 COVID-19 VACCINE (2 - [facility] Test 12:13:11 Booster for [facility] series) [code = COVID-19 VACCINE (2 - Booster for [facility] series)] Future Scheduled 2021-09-12 INFLUENZA VACCINE [code = [facility] Test 12:13:11 INFLUENZA VACCINE] Hospital Future Scheduled 2021-09-12 Screening for malignant [facility] Test 12:13:11 neoplasm of cervix Hospital (procedure) [code = [id number]] Future Scheduled 2021-08-[address] [facility] 00:00:00 (12+) [code = DEPRESSION Med ical Center SCREENING (12+)] Future Scheduled 2021-08-[address] [facility] 00:00:00 (12+) [code = DEPRESSION Med ical Center SCREENING (12+)] Future Scheduled 2021-08-[address] [facility] 00:00:00 (12+) [code = DEPRESSION Med ical Center SCREENING (12+)] Future Scheduled 2021-08-[address] [facility] 00:00:00 (12+) [code = DEPRESSION Med ical Center SCREENING (12+)] Future Scheduled 2021-04-12 INFLUENZA VACCINE (#1) [facility] 00:00:00 [code = INFLUENZA VACCINE Me dical Center (#1)] Future Scheduled 2016-01-[address] MED[address] ANNUAL WELLNESS [facility] 00:00:00 (YEAR 2 or FIRST YEAR if Med ical Center no IPPE) [code = MEDICARE ANNUAL WELLNESS (YEAR 2 or FIRST YEAR if no IPPE)] Future Scheduled 2016-01-12 [address]NUAL WELLNESS [facility] 00:00:00 (YEAR 2 or FIRST YEAR if Med ical Center no IPPE) [code = MEDICARE ANNUAL WELLNESS (YEAR 2 or FIRST YEAR if no IPPE)] Future Scheduled 2016-01-[address]NUAL WELLNESS [facility] 00:00:00 (YEAR 2 or FIRST YEAR if Med ical Center no IPPE) [code = MEDICARE ANNUAL WELLNESS (YEAR 2 or FIRST YEAR if no IPPE)] Future Scheduled 2016-01-12 MED[address]NUAL WELLNESS [facility] 00:00:00 (YEAR 2 or FIRST YEAR if Med ical Center no IPPE) [code = MEDICARE ANNUAL WELLNESS (YEAR 2 or FIRST YEAR if no IPPE)] Future Scheduled 2016-01-12 MED[address]NUAL WELLNESS [facility] 00:00:00 (YEAR 2 or FIRST YEAR if Med ical Center no IPPE) [code = MEDICARE ANNUAL WELLNESS (YEAR 2 or FIRST YEAR if no IPPE)] Future Scheduled 2016-01-12 MED[address]NUAL WELLNESS [facility] 00:00:00 (YEAR 2 or FIRST YEAR if Med ical Center no IPPE) [code = MEDICARE ANNUAL WELLNESS (YEAR 2 or FIRST YEAR if no IPPE)] Future Scheduled 2016-01-12 MED[address]NUAL WELLNESS [facility] 00:00:00 (YEAR 2 or FIRST YEAR if Med ical Center no IPPE) [code = MEDICARE ANNUAL WELLNESS (YEAR 2 or FIRST YEAR if no IPPE)] Future Scheduled 2011 SHINGLES VACCINES ([address] [facility] 00:00:00 2) [code = SHINGLES Medical Center VACCINES (1 of 2)] Future Scheduled 2011 SHINGLES VACCINES ([address] [facility] 00:00:00 2) [code = SHINGLES Medical Center VACCINES (1 of 2)] Future Scheduled 2011 SHINGLES VACCINES ([address] [facility] 00:00:00 2) [code = SHINGLES Medical Center VACCINES (1 of 2)] Future Scheduled 2011 SHINGLES VACCINES ([address] [facility] 00:00:00 2) [code = SHINGLES Medical Center VACCINES (1 of 2)] Future Scheduled 2011 SHINGLES VACCINES ([address] [facility] 00:00:00 2) [code = SHINGLES Medical Center VACCINES (1 of 2)] Future Scheduled 2011 SHINGLES VACCINES ([address] [facility] 00:00:00 2) [code = SHINGLES Medical Center VACCINES (1 of 2)] Future Scheduled 2011 SHINGLES VACCINES ([address] [facility] 00:00:00 2) [code = SHINGLES Medical Center VACCINES (1 of 2)] Future Scheduled 2006 Lipid panel (procedure) [facility] 00:00:00 [code = [id number]] Medical Ce nter Future Scheduled 1982 Screening for malignant [facility] 00:00:00 neoplasm of cervix Medical C enter (procedure) [code = [id number]] Future Scheduled 1982 Screening for malignant [facility] 00:00:00 neoplasm of cervix Medical C enter (procedure) [code = [id number]] Future Scheduled 1982 Screening for malignant [facility] 00:00:00 neoplasm of cervix Medical C enter (procedure) [code = [id number]] Future Scheduled 1982 Screening for malignant [facility] 00:00:00 neoplasm of cervix Medical C enter (procedure) [code = 886766430] Future Scheduled 1982 Screening for malignant [facility] 00:00:00 neoplasm of cervix Medical C enter (procedure) [code = 512000734] Future Scheduled 1982 Screening for malignant [facility] 00:00:00 neoplasm of cervix Medical C enter (procedure) [code = 290531552] Future Scheduled 1982 Screening for malignant [facility] 00:00:00 neoplasm of cervix Medical C enter (procedure) [code = 008309998] Future Scheduled 1980 DTAP/TDAP/TD VACCINES ([address] [facility] 00:00:00 - Tdap) [code = Medical Cent er DTAP/TDAP/TD VACCINES (1 - Tdap)] Future Scheduled 1980 DTAP/TDAP/TD VACCINES ([address] [facility] 00:00:00 - Tdap) [code = Medical Cent er DTAP/TDAP/TD VACCINES (1 - Tdap)] Future Scheduled 1980 DTAP/TDAP/TD VACCINES ([address] [facility] 00:00:00 - Tdap) [code = Medical Cent er DTAP/TDAP/TD VACCINES (1 - Tdap)] Future Scheduled 1980 DTAP/TDAP/TD VACCINES ([address] [facility] 00:00:00 - Tdap) [code = Medical Cent er DTAP/TDAP/TD VACCINES (1 - Tdap)] Future Scheduled 1980 DTAP/TDAP/TD VACCINES ([address] [facility] 00:00:00 - Tdap) [code = Medical Cent er DTAP/TDAP/TD VACCINES (1 - Tdap)] Future Scheduled 1980 DTAP/TDAP/TD VACCINES ([address] [facility] 00:00:00 - Tdap) [code = Medical Cent er DTAP/TDAP/TD VACCINES (1 - Tdap)] Future Scheduled 1980 DTAP/TDAP/TD VACCINES ([address] [facility] 00:00:00 - Tdap) [code = Medical Cent er DTAP/TDAP/TD VACCINES (1 - Tdap)] Future Scheduled [address] [facility] virus screening Medical Cent er (procedure) [code = 011975603] Future Scheduled 1973 COVID-19 VACCINE (1) [facility] 00:00:00 [code = COVID-19 VACCINE Med ical Center (1)] Future Scheduled [address] [facility] 00:00:00 Counseling and Screening Med ical Center (12+) [code = Tobacco Cessation Counseling and Screening (12+)] Future Scheduled [address] [facility] 00:00:00 Counseling and Screening Med ical Center (12+) [code = Tobacco Cessation Counseling and Screening (12+)] Future Scheduled [address] [facility] 00:00:00 Counseling and Screening Med ical Center (12+) [code = Tobacco Cessation Counseling and Screening (12+)] Future Scheduled [address] [facility] 00:00:00 Counseling and Screening Med ical Center (12+) [code = Tobacco Cessation Counseling and Screening (12+)] Future Scheduled [address] [facility] 00:00:00 Counseling and Screening Med ical Center (12+) [code = Tobacco Cessation Counseling and Screening (12+)] Future Scheduled 1961 COVID-19 VACCINE (#1) [facility] [code = COVID-19 VACCINE Med ical Center (#1)] Future Scheduled 1961 COVID-19 VACCINE (#1) [facility] [code = COVID-19 VACCINE Med ical Center (#1)] Future Scheduled 1961 COVID-19 VACCINE (#1) [facility]:00 [code = COVID-19 VACCINE Med ical Center (#1)] Future Scheduled 1961 COVID-19 VACCINE (#1) [facility] [code = COVID-19 VACCINE Med ical Center (#1)] Future Scheduled 1961 COVID-19 VACCINE (#1) [facility] [code = COVID-19 VACCINE Med ical Center (#1)] Future Scheduled 1961 COVID-19 VACCINE (#1) [facility] [code = COVID-19 VACCINE Med ical Center (#1)] Future Scheduled 1961 Screening for malignant [facility] 00:00:00 neoplasm of breast Medical C enter (procedure) [code = 896098080] Future Scheduled 1961 Screening for malignant [facility] 00:00:00 neoplasm of colon Medical Ce nter (procedure) [code = 998443930] Future Scheduled 1961 Screening for malignant [facility] 00:00:00 neoplasm of breast Medical C enter (procedure) [code = 709297563] Future Scheduled 1961 CT Colonography (combo) [facility] 00:00:00 [code = CT Colonography [facility] (combo)] Future Scheduled 1961 Screening for malignant [facility] 00:00:00 neoplasm of colon Medical Ce nter (procedure) [code = 134515590] Future Scheduled 1961 Screening for malignant [facility] 00:00:00 neoplasm of colon Medical Ce nter (procedure) [code = 914918240] Future Scheduled 1961 Screening for malignant [facility] 00:00:00 neoplasm of colon Medical Ce nter (procedure) [code = 711251341] Future Scheduled 1961 Screening for malignant [facility] 00:00:00 neoplasm of colon Medical Ce nter (procedure) [code = 047282144] Future Scheduled 1961 Sigmoidoscopy [code = [facility]] Medical Cente r Future Scheduled 1961 Screening for malignant [facility] 00:00:00 neoplasm of breast Medical C enter (procedure) [code = 206663304] Future Scheduled 1961 CT Colonography (combo) [facility] 00:00:00 [code = CT Colonography [facility] (combo)] Future Scheduled 1961 Screening for malignant [facility] 00:00:00 neoplasm of colon Medical Ce nter (procedure) [code = 723729877] Future Scheduled 1961 Screening for malignant [facility] 00:00:00 neoplasm of colon Medical Ce nter (procedure) [code = 749694124] Future Scheduled 1961 Screening for malignant [facility] 00:00:00 neoplasm of colon Medical Ce nter (procedure) [code = 580692701] Future Scheduled 1961 Screening for malignant [facility] 00:00:00 neoplasm of colon Medical Ce nter (procedure) [code = 014247465] Future Scheduled 1961 Sigmoidoscopy [code = [facility]] Medical Cente r Future Scheduled 1961 Screening for malignant [facility] 00:00:00 neoplasm of breast Medical C enter (procedure) [code = 235475699] Future Scheduled 1961 CT Colonography (combo) [facility] 00:00:00 [code = CT Colonography [facility] (combo)] Future Scheduled 1961 Screening for malignant [facility] 00:00:00 neoplasm of colon Medical Ce nter (procedure) [code = 691806034] Future Scheduled 1961 Screening for malignant [facility] 00:00:00 neoplasm of colon Medical Ce nter (procedure) [code = 720111060] Future Scheduled 1961 Screening for malignant [facility] 00:00:00 neoplasm of colon Medical Ce nter (procedure) [code = 341217088] Future Scheduled 1961 Screening for malignant [facility] 00:00:00 neoplasm of colon Medical Ce nter (procedure) [code = 166002579] Future Scheduled 1961 Sigmoidoscopy [code = [facility]] Medical Cente r Future Scheduled 1961 Screening for malignant [facility] 00:00:00 neoplasm of breast Medical C enter (procedure) [code = 297033906] Future Scheduled 1961 CT Colonography (combo) [facility] 00:00:00 [code = CT Colonography [facility] (combo)] Future Scheduled 1961 Screening for malignant [facility] 00:00:00 neoplasm of colon Medical Ce nter (procedure) [code = 739660683] Future Scheduled 1961 Screening for malignant [facility] 00:00:00 neoplasm of colon Medical Ce nter (procedure) [code = 512986278] Future Scheduled 1961 Screening for malignant [facility] 00:00:00 neoplasm of colon Medical Ce nter (procedure) [code = 922393202] Future Scheduled 1961 Screening for malignant [facility] 00:00:00 neoplasm of colon Medical Ce nter (procedure) [code = 051394446] Future Scheduled 1961 Sigmoidoscopy [code = [facility]oscopy] Medical Terrencee r Future Scheduled 1961 Screening for malignant [facility] 00:00:00 neoplasm of breast Medical C enter (procedure) [code = 612930402] Future Scheduled 1961 CT Colonography (combo) [facility] 00:00:00 [code = CT Colonography [facility] (combo)] Future Scheduled 1961 Screening for malignant [facility] 00:00:00 neoplasm of colon Medical Ce nter (procedure) [code = 590104514] Future Scheduled 1961 Screening for malignant [facility] 00:00:00 neoplasm of colon Medical Ce nter (procedure) [code = 019320027] Future Scheduled 1961 Screening for malignant [facility] 00:00:00 neoplasm of colon Medical Ce nter (procedure) [code = 771097425] Future Scheduled 1961 Screening for malignant [facility] 00:00:00 neoplasm of colon Medical Ce nter (procedure) [code = 512465841] Future Scheduled 1961 Sigmoidoscopy [code = [facility]] Medical Cente r Future Scheduled 1961 Screening for malignant [facility] 00:00:00 neoplasm of breast Medical C enter (procedure) [code = 592357714] Future Scheduled 1961 CT Colonography (combo) [facility] 00:00:00 [code = CT Colonography [facility] (combo)] Future Scheduled 1961 Screening for malignant [facility] 00:00:00 neoplasm of colon Medical Ce nter (procedure) [code = 815120204] Future Scheduled 1961 Screening for malignant [facility] 00:00:00 neoplasm of colon Medical Ce nter (procedure) [code = 006438108] Future Scheduled 1961 Screening for malignant [facility] 00:00:00 neoplasm of colon Medical Ce nter (procedure) [code = 522308349] Future Scheduled 1961 Screening for malignant [facility] 00:00:00 neoplasm of colon Medical Ce nter (procedure) [code = 253764173] Future Scheduled 1961 Sigmoidoscopy [code = [facility] S[facility]oscopy] Medical Cente r Encounters Start End Encounter Admission Attending Care Care Encounter Source Date/Time Date/Time Type Type Clinicians Facility Department ID 2022-04-27 Outpatient Man, [facility] [id number] Common 10:06:00 Fernando [id number] [facility] 2022-03-26 Outpatient ER [facility] Internal [id number] 11:28:10 [facility] 2022-03-22 Outpatient Man, [facility] [id number] Common 08:23:00 Fernando [id number] [facility] 2021-09-06 Outpatient Man, [facility] [id number] Common 13:49:19 Fernando 89675 [facility] 2021-09-06 Outpatient Man, [facility] [id number] Common 13:45:16 Fernando [id number] [facility] 2021-09-06 Outpatient Man, STLMLC STLMLC [id number] Common 12:49:41 Fernando 55952 [facility] 2021-09-06 Outpatient Man, STLMLC STLMLC [id number] Common 12:05:14 Fernando [id number] [facility] 2021-09-06 Outpatient Man, STLMLC STLMLC [id number] Common 12:03:44 Fernando [id number] [facility] 2021-09-06 Outpatient Man, STLMLC STLC [id number] Common 11:42:32 Fernando 83966 [facility] 2021-09-06 Outpatient Man, STLMLC STLC [id number] Common 11:33:04 Fernando [id number] [facility] 2023-03-07 2023-03-07 Outpatient SAHARIA, [facility] [id number] [place] 00:00:00 00:00:00 PEDRO 540 Method i 2023-03-07 2023-03-07 Outpatient BAMBI, [facility] [id number] [place] 00:00:00 00:00:00 RAY 539 Method i 2023-03-07 2023-03-07 Outpatient GURU, IVIS [facility] [id number] [place] 00:00:00 00:00:00 829 Method i 2023-03-07 2023-03-07 Outpatient [facility] [id number] [place] 00:00:00 00:00:00 584 Method i 2023-01-28 2023-01-28 Outpatient SAHARIA, [facility] [id number] [place] 00:00:00 00:00:00 PEDRO [address] 2022-12-20 2022-12-20 Outpatient SAHARIA, [facility] [id number] [place] 00:00:00 00:00:00 PEDRO 415 Method i 2022-12-20 2022-12-20 Outpatient BAMBI, [facility] [id number] [place] 00:00:00 00:00:00 RAFIK 406 Method i 2022-12-20 2022-12-20 Outpatient BAMBI, [facility] [id number] [place] 00:00:00 00:00:00 JONNIK 416 Method i 2022-12-20 2022-12-20 Outpatient GALATI, [facility] [id number] [place] 00:00:00 00:00:00 CALOS 400 Method i 2022-12-17 2022-12-17 Emergency NUSZEN, [facility] 064 [id number] [place] 00:00:00 00:00:00 ROMERO 152 Method i 2022-11-27 2022-11-27 Outpatient HAWK, [facility] [id number] [place] 00:00:00 00:00:00 DAKSHA 745 Method i 2022-11-22 2022-11-22 Outpatient BAMBI, [facility] [id number] [place] 00:00:00 00:00:00 RAY 159 Method i 2022-11-15 2022-11-15 Outpatient RENÉ, [facility] [id number] [place] 00:00:00 00:00:00 COLIN 378 Method i 2022-11-08 2022-11-08 Outpatient SAHARIA, [facility] [id number] [place] 00:00:00 00:00:00 PEDRO 556 Method i 2022-11-08 2022-11-08 Outpatient SAHARIA, [facility] [id number] [place] 00:00:00 00:00:00 PEDRO 153 Method i 2022-11-08 2022-11-08 Outpatient [facility] [id number] [place] 00:00:00 00:00:00 233 Method i 2022-11-07 2022-11-07 Emergency [facility] [id number] Univers 12:40:00 13:55:00 MARTELL tatum [facility] 2022-11-07 2022-11-07 Emergency Sanchez [facility] [id number] [facility] 12:40:00 13:55:00 Martell PORRAS 350.1.13.10 maverick Solis 4.2.7.2.686 [facility] [phone] [facility] cj 084 [place] 2022-10-22 2022-10-22 Outpatient BAMBI, [facility] [id number] [place] 00:00:00 00:00:00 RAFIK [address] 2022-10-22 2022-10-22 Outpatient [facility] [id number] [place] 00:00:00 00:00:[address] 2022-10-18 2022-10-18 Outpatient BAMBI, [facility] [id number] [place] 00:00:00 00:00:00 RAFIK 695 Method i 2022-10-18 2022-10-18 Outpatient [facility] [id number] [place] 00:00:00 00:00:[address] 2022-10-18 2022-10-18 Outpatient BAMBI, [facility] [id number] [place] 00:00:00 00:00:00 RAFIK 694 Method i 2022-10-15 2022-10-15 Outpatient DEL CID, [facility] [id number] [place] 00:00:00 00:00:00 DAVE 693 Method i 2022-09-27 2022-10-11 Inpatient BAYRON, [facility] 019 [id number] [place] 00:00:00 00:00:00 DARA 859 Method i 2022-10-08 2022-10-08 Inpatient DIVATIA, [facility] [id number] [place] 00:00:00 00:00:00 DARIN 081 Method i 2022-07-16 2022-09-27 Inpatient SAHARIA, [facility] [id number] [place] 00:00:00 00:00:00 PEDRO 884 Method i 2022-07-02 2022-07-02 Outpatient SFA SFA [id number] [place] 14:37:57 14:37:57 [id number] F [place] 2022-06-15 2022-06-26 Inpatient TING [facility] [id number] [place] 00:00:00 00:00:00 PIERSON, 407 Method i BAYLEE 2022-03-26 2022-06-15 Inpatient YORK, [facility] [id number] [place] 00:00:00 00:00:00 HERIBERTO [address] 2022-02-17 2022-02-23 Inpatient ROLANDO [facility] [id number] [place] 00:00:00 00:00:00 PIERCE [address] 2022-02-09 2022-02-09 [facility] [id number] Univers 15:00[facility]00 15:00[facility] 2022-02-09 Out[facility] [id number] Univers 15:00:00 15:00:00 [facility] 2022-02-08 2022-02-08 Orders Doctor KIRIT 1.2.840.114 [id number] [facility] 00:00:00 00:00:00 Only Unassigned, MICHAEL 350.1.13.10 ity of Catherine [facility] 4.2.7.2.686 Brent as [phone] [address] 2022-01-30 2022-01-30 Telephone [facility] 1.2.840.114 [id number] [facility] 00:00:00 00:00:00 [facility] 350.1.13.10 it y of Ricki RANDOLPH 4.2.7.2.686 Brnet as VAMSI?BLEA [phone] [address] MEDICAL OFFICE BUILDING 2022-01-23 2022-01-23 [id number] [facility] 00:00:00 00:00:00 [facility] 2022-[facility]-10 2022-01-10 Outpatient GALATI, [facility] [id number] [place] 00:00:00 00:00:00 CALOS 366 Method i 2022-01-10 2022-01-10 Outpatient GALATI, [facility] [id number] [place] 00:00:00 00:00:00 CALOS [address] 2021-11-30 2021-11-30 (TEL) STLMLC STLC [id number] Co mmon 00:00:00 00:00:00 Gilberto [facility] 2021-11-30 2021-11-30 (TEL) STLMLC STLMLC [id number] Co mmon 00:00:00 00:00:00 Spirit - [facility] 2021-11-16 2021-11-16 Office [facility] [id number] [id number] Univers 13:30:00 14:32:33 Visit Libby VERN 350.1.13.10 i ty of [place] [phone] Id dical NAL 134 [facility] 2021-11-16 2021-11-16 [facility] [id number] Univers 13:30:00 14:32:33 [facility] 2021-11-16 2021-11-16 Outpatient Christian[facility] [id number] Univers 13:30:00 13:30:00 [facility] 2021-11-16 2021-11-16 Outpatient [facility] [id number] Univers 13:30:00 13:30:00 [facility] 2021-11-10 2021-11-10 Office [facility] 1.2.840.114 [id number] Univers 16:30:00 16:30:00 Visit Sally VERN 350.1.13.10 i ty of [place] [phone] [facility] 098 [facility] 2021-11-10 2021-11-10 Outpatient Christiana [facility] [id number] Univers 16:30:00 13:58:19 SALLY [facility] 2021-10-27 2021-11-04 Inpatient [facility] [id number] [place] 00:00:00 00:00:00 Ava PIERSON i [facility] 2021-10-16 2021-10-16 (HOSP F/U) STLMLC STLMLC [id number] Common 00:00:00 00:00:[address] [facility] Follow Up - [facility] 2021-10-13 2021-10-13 (TEL) STLMLC STLMLC [id number] Co mmon 00:00:00 00:00:00 Spirit - [facility] 2021-10-03 2021-10-03 Ref[facility] [id number] 00:00:00 00:00:[address] [facility] 2021-10-02 2021-10-02 Outpatient R [facility] [id number] Univers 15:30:00 16:50:13 [facility] 2021-10-02 2021-10-02 Outpatient R [facility] [id number] Univers 15:30:00 15:30:00 [facility] 2021-09-27 2021-09-27 Out[facility] [id number] Univers 13:45:00 15:38:26 [facility] 2021-09-27 2021-09-27 Office [facility] 1.2.520.702 [id number] Univers 13:45:00 15:38:26 Visit Libby PORRAS 350.1.13.10 i ty [facility] 4.2.7.2.[place] [phone] Id dic[address] 2021-09-27 2021-09-27 Outpatient [facility] [id number] Univers 13:45:00 15:38:26 [facility] 2021-09-27 2021-09-27 Orders Doctor BETH 1.2.840.114 [id number] Univers 00:00:00 00:00:00 Only Unassigned, MICHAEL 350.1.13.10 ity of Catherine [facility] 4.2.7.2.686 Brent as [phone] [address] 2021-09-25 2021-09-25 [facility] [id number] [facility] mmon 00:00:00 00:00:00 VISIT Gilberto RONALD PT - CHI LEVEL 4 [facility] 2021-09-01 2021-09-16 Inpatient ER RAFAEL, [facility] [id number] [facility] 22:15:00 12:13:00 NEJMUDIN 2021-09-01 2021-09-16 Hospital Dawna Anguiano [facility] [id number] [facility] St 22:15:00 12:13:[address] [facility] Vj, [facility], Nia Savage 2021-09-04 2021-09-04 (TEL) [facility] [id number] Co mmon 00:00:00 00:00:00 Spirit - [facility] 2021-09-01 2021-09-01 Telephone Sukhjinderivethreal, 1.2.840.1 [id number] Methodi 00:00:00 00:00:[address] Matthew 3.430.2.7 Hospit a .3.564593 l .8 2021-09-01 2021-09-01 [facility] [id number] [facility] 00:00:00 00:00:00 ion [facility] 2021-08-30 2021-08-31 Emergency [facility] [place], [facility] [id number] [place] 00:00:00 00:00:00 MOISES [address] 2021-08-30 2021-08-30 Travel 1.2.840.1 1.2.384.240 [id number] Methodi 00:00:00 00:00:[address] 3.430.2.7 0.2.7.3.698 Ho spita .3.877253 084.8 l .8 2021-08-29 2021-08-29 Outpatient Chrisitana LEVY [facility] [id number] [facility] 13:00:00 13:00:00 LIBBY tatum [facility] 2021-08-29 2021-08-29 Outpatient JOSE, [facility] [id number] [place] 00:00:00 00:00:00 CALOS [address] 2021-08-29 2021-08-29 Travel 1.2.840.1 1.2.451.103 1512 [id number] Methodi 00:00:00 00:00:[address] 3.430.2.7 0.2.7.3.698 Ho spita .3.118890 084.8 l .8 2021-08-25 2021-08-25 Travel 1.2.840.1 1.2.309.734 3206 [id number] Methodi 00:00:00 00:00:[address] 3.430.2.7 0.2.7.3.698 Ho spita .3.648356 084.8 l .8 2021-08-17 2021-08-25 [facility] JENNIFER 1.2.840.1 [id number] [place] 00:00:00 00:00:00 Encounter 88509.1.1 [address].7 [address] .3.452154 .8 2021-08-24 2021-08-24 Surgery Tomy, 1.2.840.1 [id number] 56312 Methodi 09:00:00 10:25:[address] 3.430.2.7 Hospit a .3.921438 l .8 2021-08-24 2021-08-24 Documentat Delcano, 1.2.840.1 [id number] 21 [id number] Methodi 00:00:00 00:00:[place] [address]1.[address] Matthew 3.430.2.7 Hospit a .3.885567 l .8 2021-08-23 2021-08-23 Documentat Delcano, 1.2.840.1 [id number] 21 [id number] Methodi 00:00:00 00:00:[place] [address] Matthew 3.430.2.7 Hospit a .3.091851 l .8 2021-08-21 2021-08-21 Social Jaimes, 1.2.840.1 [id number] Methodi 12:37:39 13:37:39 Work Kirit 81177.1.[address] 3.430.2.7 Hospit a .3.538176 l .8 2021-08-21 2021-08-21 Documentat Cristofer, 1.2.840.1 [id number] 21 [id number] Methodi 00:00:00 00:00[place] [address] Matthew 3.430.2.7 Hospit a .3.244146 l .8 2021-08-21 2021-08-21 Telephone Pops, 1.2.840.1 [id number] 2100 [id number] Methodi 00:00:00 00:00:[address] 3.430.2.7 Hospit a .3.904663 l .8 2021-08-18 2021-08-18 Travel 1.2.840.1 1.2.738.227 4770 [id number] Methodi 00:00:00 00:00:[address] 3.430.2.7 0.2.7.3.698 Ho spita .3.904087 084.8 l .8 2021-08-10 2021-08-11 Emergency [facility], 1.2.840.1 [id number] Methodi 20:25:00 01:30:[address] Rylee 3.430.2.7 Ho spita .3.787754 l .8 2021-08-10 2021-08-10 Travel 1.2.840.1 1.2.339.617 [id number] [id number] Methodi 00:00:00 00:00:[address] 3.430.2.7 0.2.7.3.698 Ho spita .3.476073 084.8 l .8 2021-07-28 2021-07-28 (TEL) [facility] [id number] Co mmon 00:00:00 00:00:00 [facility] 2021-07-25 2021-07-25 Telephone Stephanie, 1.2.840.1 [id number] [id number] Methodi 00:00:00 00:00:[address] 3.430.2.7 Hospit a .3.734806 l .8 2021-07-24 2021-07-24 Telephone Pops, 1.2.840.1 [id number] 2099 [id number] Methodi 00:00:00 00:00:[address] 3.430.2.7 Hospit a .3.528186 l .8 2021-07-12 2021-07-12 [facility] [id number] [place] [facility] 00:00:00 00:00:00 [facility] 2021-06-29 2021-06-29 Travel 1.2.840.1 1.2.637.568 2480 [id number] Methodi 00:00:00 00:00:[address] 3.430.2.7 0.2.7.3.698 Ho spita .3.445324 084.8 l .8 2021-06-28 2021-06-28 Emergency [facility], [facility] 064 [id number] 37 [place] 00:00:00 00:00:00 [place] [address] 2021-06-22 2021-06-22 Behavioral John, 1.2.840.1 [id number] 876 [id number] Methodi 00:00:00 00:00:00 Health Kaleb 17421.1.[address] Johnny 3.430.2.7 Hospit a .3.176304 l .8 2021-06-18 2021-06-21 [facility], 1.2.840.1 [id number] 2099 [id number] [place] 00:00:00 00:00:00 Encounter [facility] 96574.1.1 [address] .3.162689 .8 2021-06-18 2021-06-18 Travel 1.2.840.1 1.2.867.703 8054 [id number] Methodi 00:00:00 00:00:[address] 3.430.2.7 0.2.7.3.698 Ho spita .3.222895 084.8 l .8 2021-06-16 2021-06-16 Orders Teri, 1.2.840.6 [id number] Methodi 00:00:00 00:00:00 Only Eusebia Maya 12711.1.[address] 3.430.2.7 Hospit a .3.898862 l .8 2021-06-08 2021-06-08 Clinical 1.2.840.1 [id number] Methodi 12:04:06 13:04:[address] 3.430.2.7 Hospit a .3.846543 l .8 2021-06-05 2021-06-05 Telephone [facility], 1.2.840.1 [id number] Methodi 00:00:00 00:00:[address] Johnny 3.430.2.7 Hospit a .3.856891 l .8 2021-05-31 2021-06-02 [facility], 1.2.840.1 [id number] [place] 00:00:00 00:00:00 Encounter HERIBERTO 22631.1.1 [address] .3.525707 .8 2021-05-31 2021-05-31 Travel 1.2.840.1 1.2.145.165 7776 [id number] Methodi 00:00:00 00:00:[address] 3.430.2.7 0.2.7.3.698 Ho spita .3.064959 084.8 l .8 2021-05-24 2021-05-27 [facility] [id number] [place] [address] 00:00:00 00:00:00 Encounter PIERCE [address] 2021-05-24 2021-05-24 Travel 1.2.840.1 1.2.290.396 9806 [id number] Methodi 00:00:00 00:00:[address] 3.430.2.7 0.2.7.3.698 Ho spita .3.407201 084.8 l .8 2021-05-23 2021-05-23 (TEL) STLMLC STLMLC [id number] Co mmon 00:00:00 00:00:00 [facility] 2021-05-19 2021-05-19 (TEL) STLMLC STLMLC [id number] Co mmon 00:00:00 00:00:00 [facility] 2021-05-01 2021-05-01 (TEL) STLMLC STLMLC [id number] Co mmon 00:00:00 00:00:00 [facility] 2021-04-26 2021-04-26 (TEL) STLMLC STLMLC [id number] Co mmon 00:00:00 00:00:00 [facility] 2021-04-26 2021-04-26 OFFICE STLMLC STLMLC [id number] Co mmon 00:00:00 00:00:00 VISIT [facility] ESTAB PT - CHI LEVEL 4 [facility] 2021-04-26 2021-04-26 SUB ANNUAL STLMLC STLMLC [id number] Common 00:00:00 00:00:00 [facility] WELLNESS - CHI VISIT [facility] 2021-04-21 2021-04-21 (TEL) STLMLC STLMLC [id number] Co mmon 00:00:00 00:00:00 [facility] 2021-01-13 2021-01-13 (TEL) STLMLC STLMLC [id number] Co mmon 00:00:00 00:00:00 [facility] 2020-12-13 2020-12-13 (TEL) STLMLC STLMLC [id number] Co mmon 00:00:00 00:00:00 [facility] 2020-11-28 2020-11-28 Patient Randal, 1.2.840.1 [id number] Methodi 00:00:00 00:00:00 Outreach Bia 62519.1.[address] 3.430.2.7 Hospit a .3.580513 l .8 2020-11-25 2020-11-25 Patient Randal, 1.2.840.1 [id number] Methodi 00:00:00 00:00:00 Outreach Bia 60486.1.[address] 3.430.2.7 Hospit a .3.681466 l .8 2020-11-24 2020-11-24 Patient Randal, 1.2.840.1 [id number] Methodi 00:00:00 00:00:00 Outreach Bia 10476.1.[address] 3.430.2.7 Hospit a .3.726932 l .8 2020-11-22 2020-11-23 [facility] 1.2.840. 1 [id number] Methodi 17:29:00 16:26:00 [address]ard 23496.1.[address] 3.430.2.7 Hospit a .3.856037 l .8 2020-11-22 2020-11-22 Travel 1.2.840.1 1.2.339.416 4823 033614 Methodi 00:00:00 00:00:[address] 3.430.2.7 0.2.7.3.698 Ho spita .3.948706 084.8 l .8 2020-11-17 2020-11-17 Outpatient STLMLC STLMLC [id number] Common 00:00:00 00:00:00 [facility] 2020-11-02 2020-11-02 [facility] Cliff Levy 1.2.840.1 [id number] Methodi 16:45:00 23:59:00 Encounter Calos Garcia 84364.1.[address] 3.430.2.7 Hospit a .3.629829 l .8 2020-11-02 2020-11-02 Lab Jose, 1.2.840.1 [id number] Methodi 16:00:31 16:05:31 Calos Feng 85698.1.[address] 3.430.2.7 Hospit a .3.183285 l .8 2020-11-02 2020-11-02 Travel 1.2.840.1 1.2.071.559 6319 [id number] Methodi 00:00:00 00:00:[address] 3.430.2.7 0.2.7.3.698 Ho spita .3.324991 084.8 l .8 2020-10-26 2020-10-26 [facility] 1.2.840.1 [id number] Methodi 12:51:36 23:59:00 Encounter Cliff ChuLaurel 74769.1.[address] 3.430.2.7 Hospit a .3.048572 l .8 2020-10-26 2020-10-26 [facility] 1.2.840.1 [id number] Methodi 08:10:06 12:50:00 Encounter Cliff ChuLaurel 76512.1.[address] 3.430.2.7 Hospit a .3.310893 l .8 2020-10-26 2020-10-26 Travel 1.2.840.1 1.2.149.518 8377 [id number] Methodi 00:00:00 00:00:[address] 3.430.2.7 0.2.7.3.698 Ho spita .3.518999 084.8 l .8 2020-10-23 2020-10-24 [facility] 1.2.840.1 [id number] Methodi 17:57:00 14:46:00 Encounter Heriberto York 45631.1.[address] Baylee Girard 3.430.2.7 [facility] .3.963067 l .8 2020-10-13 2020-10-13 Travel 1.2.840.1 1.2.739.974 3358 [id number] Methodi 00:00:00 00:00:[address] 3.430.2.7 0.2.7.3.698 Ho spita .3.351762 084.8 l .8 2020-10-12 2020-10-12 Transcribe Mildred 1Laurel2.840.1 [id number] Methodi 00:00:00 00:00:00 Orders Cliff Marion 21774.1.[address] 3.430.2.7 Hospit a .3.518018 l .8 2020-10-11 2020-10-11 Outpatient STLMLC STLMLC [id number] Common 00:00:00 00:00:00 [facility] 2020-10-09 2020-10-09 Emergency Roberto Carlos, 1.2.840.1 [id number] Methodi 16:28:00 19:29:[address] Gus 3.430.2.7 Hospit a .3.424715 l .8 2020-10-03 2020-10-03 Outpatient STLMLC STLMLC [id number] Common 00:00:00 00:00:00 [facility] 2020-09-19 2020[facility]21 [facility] [id number] Methodi 16:55:00 14:27:00 Encounter Heriberto York 11903.1.[address] Jennifer Ghosh 3.430.2.7 Hos lis .3.007641 l .8 2020-09-15 2020-09-15 Transcribe Chapin Garcia2.840.1 [id number] [id number] Methodi 00:00:00 00:00:00 Orders Calos SLaurel 78539.1.[address] 3.430.2.7 Hospit a .3.300549 l .8 2020-09-14 2020-09-14 Outpatient STLMLC STLMLC [id number] Common 00:00:00 00:00:00 [facility] 2020-08-31 2020-09-02 Inpatient DINAKAR, [facility] [id number] [place] 00:00:00 00:00:00 PIERCE [address] 2020-08-10 2020-08-13 Inpatient YORK, [facility] 012 [id number] [place] 00:00:00 00:00:00 HERIBERTO [address] 2020-08-09 2020-08-09 Emergency NUFaustinoZEN, [facility] 064 [id number] [place] 00:00:00 00:00:00 ROMERO [address] 2020-08-08 2020-08-08 Emergency WEIBEL, [facility] 064 [id number] [place] 00:00:00 00:00:00 NOBLE [address] 2020-07-27 2020-07-27 Outpatient STLMLC STLMLC [id number] Common 00:00:00 00:00:00 [facility] 2020-07-18 2020-07-18 Outpatient [facility] [id number] [place] 00:00:00 00:00:[address] 2020-07-04 2020-07-07 Inpatient DAVINA JENNIFER [facility] [id number] [place] 00:00:00 00:00:[address] 2020-06-28 2020-06-28 Outpatient STLMLC STLMLC [id number] [facility] 00:00:00 00:00:00 [facility] 2020-06-20 2020-06-20 Outpatient STLMLC STLMLC [id number] [facility] 00:00:00 00:00:00 [facility] 2020-05-30 2020-06-03 Inpatient JENNIFER GHOSH [facility] 064 [id number] [place] 00:00:00 00:00:[address] 2020-05-27 2020-05-27 Outpatient YALAMANCHIL [facility] [id number] [place] 00:00:00 00:00:00 YIFAN Torres 752 Meth erasto 2020-05-20 2020-05-20 Outpatient STLMLC STLC [id number] Common 00:00:00 00:00:00 [facility] 2020-05-13 2020-05-17 Inpatient MCCARTAN, [facility] 064 [id number] [place] 00:00:00 00:00:00 MERCY 422 Method i 2020-04-13 2020-04-21 Inpatient YOJANA, [facility] 064 [id number] [place] 00:00:00 00:00:00 JUNO 459 Method i 2020-04-13 2020-04-13 [facility] [id number] Common 16:02:00 16:02:[address] [facility] 2020-04-13 2020-04-13 [facility] [id number] Common 09:33:00 09:33:[address] [facility] 2020-04-05 2020-04-05 [facility] 32 [id number] Common 09:10:00 09:10:[address] [facility] 2020-04-04 2020-04-04 [facility] [id number] Common 10:58:00 10:58:[address] [facility] 2020-04-04 2020-04-04 [facility] [id number] Common 10:00:00 10:00:[address] [facility] 2020-03-17 2020-03-19 Inpatient TING [facility] 064 [id number] [place] 00:00:00 00:00:00 Ben PIERSON Method i BAYLEE 2020-03-16 2020-03-16 [facility] [id number] Common 11:12:00 11:12:[address] [facility] 2020-03-14 2020-03-14 Outpatient JACQUELIN, [facility] [id number] [place] 00:00:00 00:00:00 AHMED 426 Method i 2020-03-10 2020-03-10 [facility] [id number] Common 13:18:00 13:18:[address] [facility] 2020-03-07 2020-03-07 [facility] [id number] Common 16:07:00 16:07:[address] [facility] 2020-03-04 2020-03-04 Out[facility] [id number] Common 11:00:00 11:00:[address] [facility] 2020-03-04 2020-03-04 Out[facility] [id number] Common 11:00:00 11:00:[address] [facility] 2020-03-04 2020-03-04 Outpatient MEAGAN, [facility] [id number] [place] 00:00:00 00:00:00 JAYASIMHA 578 Meth erasto 2020-02-18 2020-02-21 Inpatient YORK, [facility] 064 [id number] [place] 00:00:00 00:00:00 HERIBERTO 304 Method i 2020-01-18 2020-01-20 Inpatient DINAKAR, [facility] [id number] [place] 00:00:00 00:00:00 PIERCE 881 Method i 2020-01-07 2020-01-11 Inpatient YORK, [facility] 064 [id number] [place] 00:00:00 00:00:00 HERIBERTO 087 Method i 2019-12-29 2019-12-29 [facility] [id number] Common 07:03:00 07:03:[address] [facility] 2019-12-23 2019-12-25 Inpatient TING [facility] 064 [id number] [place] 00:00:00 00:00:00 Reynaldo PIERSON Method i BAYLEE 2019-12-23 2019-12-23 [facility] [id number] [place] 00:00:00 00:00:00 EBONY [address] 2019-12-22 2019-12-22 [facility] 1.2.840.114 [id number] Univers 14:08:03 14:56:41 Visit [facility] S Health 350.1.13.10 it y of Surgical 4.2.7.2.686 Brent as Specialti [id number] Id dical es 198 [facility] 2019-12-22 2019-12-22 [facility] 12.840.114 [id number] 14:08:03 14:56:41 Visit Lita S Health 350.1.13.10 Surgical 4.2.7.2.686 Specialti [id number] [address] 2019-12-22 2019-12-22 [facility]patient [facility] [id number] Univers 14:15:00 14:15:00 [facility] 2019-12-15 2019-12-15 [facility] 12.840.114 [id number] Univers 14:57:28 15:12:28 Visit Lita S Health 350.1.13.10 it y of Surgical 4.2.7.2.686 Brent as Specialti [id number] Id dical es 198 [facility] 2019-12-15 2019-12-15 Outpatient [facility] [id number] Univers 15:00:00 15:00:00 [facility] 2019-12-08 2019-12-08 [facility] 1.2.840.114 [id number] Univers 15:45:23 16:15:13 Visit [facility] Health 350.1.13.10 it y of Surgical 4.2.7.2.686 Brent as Specialti [id number] Id dical es 198 [facility] 2019-12-08 2019-12-08 Outpatient [facility] [id number] Univers 16:00:00 16:00:00 [facility] 2019-12-08 2019-12-08 Outpatient [facility] [id number] Univers 13:45:00 13:45:00 LITA [facility] 2019-10-30 2019-10-30 Outpatient R [facility] [id number] Univers 10:15:00 10:15:00 [facility] 2019-10-26 2019-10-26 Orders Doctor KIRIT 1.2.840.114 [id number] Univers 00:00:00 00:00:00 Only Unassigned, MICHAEL 350.1.13.10 ity of [place] [facility] 4.2.7.2.686 Brent as [id number] [address] 2019-10-22 2019-10-22 Outpatient [facility] [id number] Univers 16:15:00 16:15:00 [facility] 2019-10-22 2019-10-22 Office [facility] 1.2.840.114 [id number] Univers 10:06:57 10:56:32 Visit [facility] 350.1.13.10 it y of Surgical 4.2.7.2.686 Brent as Specialti [id number] Me dical es 198 [facility] 2019-10-22 2019-10-22 Outpatient Christian[facility] [id number] Univers 10:15:00 10:15:00 [facility] 2019-10-12 2019-10-15 [id number] [id number] [place] 00:00:00 00:00:00 HERIBERTO [address] 2019-09-24 2019-09-24 [facility] 1.2.840.114 [id number] Univers 11:21:26 11:41:20 Visit [facility] 350.1.13.10 it y of Surgical 4.2.7.2.686 Brent as Specialti [id number] Me dical es 198 [facility] 2019-09-24 2019-09-24 Outpatient Christian[facility] [id number] Univers 11:15:00 11:41:20 [facility] 2019-09-01 2019-09-03 Inpatient CHELA [facility] [id number] [place] 00:00:00 00:00:00 HERIBERTO [address] 2019-07-20 2019-07-20 [facility] [id number] Common 14:02:00 14:02:[address] [facility] 2019-07-16 2019-07-16 Out[facility] [id number] Common 13:15:00 13:15:[address] [facility] 2019-06-16 2019-06-18 Inpatient YORK, [facility] [id number] [place] 00:00:00 00:00:00 HERIBERTO 382 Method i 2019-05-07 2019-05-08 Outpatient DARCY, UMAR [facility] [id number] [place] 00:00:00 00:00:00 691 Method i 2019-04-23 2019-04-23 Outpatient GALATI, [facility] [id number] [place] 00:00:00 00:00:00 CALOS 089 Method i 2019-04-23 2019-04-23 Outpatient JACQUELIN, [facility] [id number] [place] 00:00:00 00:00:00 AHMED 724 Method i 2019-04-15 2019-04-15 Out[facility] [id number] Common 14:19:00 14:19:[address] [facility] 2019-04-09 2019-04-09 Out[facility] [id number] Common 14:00:00 14:00:[address] [facility] 2019-03-10 2019-03-10 Transition Bennie Ma 1.2.840.114 [id number] [facility] 00:00:00 00:00:00 of Care Anabell Almaguer 350.1.13.10 it y of [place] 4.2.7.2.686 Kalyani s [id number] [place] [address] [place] 2019-03-06 2019-03-09 [facility] Akanksha Jensen 1.2.840. 114 [id number] [facility] 00:42:03 16:11:00 En[facility] 4.2.7[facility]2.686 [place] [id number] [place] [address] Branch 2019-01-21 2019-01-21 Emergency X SANCHEZ, [facility] ERT [id number] Univers 19:21:56 22:21:00 MARTELL tatum [facility] 2018-09-09 2018-09-09 [facility] [id number] Common 14:45:00 14:45:[address] [facility] 2018-04-15 2018-04-15 [facility] [id number] Common 12:02:00 12:02:[address] [facility] 2018-02-19 2018-02-19 Out[facility] [id number] Common 15:08:00 15:08:[address] [facility] 2018-01-24 2018-01-24 Outpatient [facility] [id number] Common 11:15:00 11:15:[address] Sp[address] [facility] Results Test Description Test Time Test Comments Results Result Comments Source Influenza virus A and B and 2023-01-28 18:44:34 Test Item Value Reference Range Interpretation Comme nts SARS-CoV-2 (COVID-19) RNA [Presence] in Respiratory specimen by Not detected GUSTAVO with probe detection (test code = 89524-9) Whether patient resides in a congregate care setting (test code = N o 83507-6) Date and time of symptom onset (test code = 22831-3) Unknown Whether the patient was hospitalized for condition of interest No (test code = 15633-5) Whether the patient was admitted to intensive care unit (ICU) for N o condition of interest (test code = 77356-7) 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 (test code = No 02982-1) Whether the patient has symptoms related to condition of interest N o (test code = 25156-1) status (test code = 97356-9) No PHI MICHAELSARS-CoV-2 (COVID-19) RNA [Presence] in Respiratory specimen by GUSTAVO with probe [id number] 19:26:29 Test Item Value Reference Range Interpretation Comments SARS-CoV-2 (COVID-19) RNA Not detected [Presence] in Respiratory specimen by GUSTAVO with probe detection (test code = 28858-9) 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 employed in a Unknown healthcare setting (test code = 48258-6) Whether the patient has symptoms Unknown related to condition of interest (test code = 56784-7) Whether the patient was Unknown hospitalized for condition of interest (test code = 26984-6) Whether the patient was admitted Unknown to intensive care unit (ICU) for condition of interest (test code = 00016-0) Whether patient resides in a Unknown congregate care setting (test code = 52690-5) status (test code = Unknown 60681-1) Date and time of symptom onset Unknown (test code = 42303-3) PHI MICHAELSARS-CoV-2 (COVID-19) RNA [Presence] in Respiratory specimen by GUSTAVO with probe [id number] 18:27:11 Test Item Value Reference Range Interpretation Comments SARS-CoV-2 (COVID-19) RNA Not detected [Presence] in Respiratory specimen by GUSTAVO with probe detection (test code = 91245-1) 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 employed in a Unknown healthcare setting (test code = 04544-1) Whether the patient has symptoms Unknown related to condition of interest (test code = 90696-3) Whether the patient was Unknown hospitalized for condition of interest (test code = 23291-2) Whether the patient was admitted Unknown to intensive care unit (ICU) for condition of interest (test code = 29467-2) Whether patient resides in a Unknown congregate care setting (test code = 49379-1) status (test code = Unknown 01382-7) Date and time of symptom onset Unknown (test code = 43308-1) PHI MICHAELSARS-CoV-2 (COVID-19) RNA [Presence] in Respiratory specimen by GUSTAVO with probe [id number] 02:07:43 Test Item Value Reference Range Interpretation Comments SARS-CoV-2 (COVID-19) RNA Not detected [Presence] in Respiratory specimen by GUSTAVO with probe detection (test code = 98100-0) 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 employed in a Unknown healthcare setting (test code = 59939-6) Whether the patient has symptoms Unknown related to condition of interest (test code = 63797-7) Whether the patient was Unknown hospitalized for condition of interest (test code = 46505-8) Whether the patient was admitted Unknown to intensive care unit (ICU) for condition of interest (test code = 05303-0) Whether patient resides in a Unknown congregate care setting (test code = 28987-6) status (test code = Unknown 03733-7) Date and time of symptom onset Unknown (test code = 73591-5) PHI MICHAELSARS-CoV-2 (COVID-19) RNA [Presence] in Respiratory specimen by GUSTAVO with probe [id number] 21:37:35 Test Item Value Reference Range Interpretation Comments SARS-CoV-2 (COVID-19) RNA Not detected [Presence] in Respiratory specimen by GUSTAVO with probe detection (test code = 54377-2) 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 employed in a Unknown healthcare setting (test code = 02304-2) Whether the patient has symptoms Unknown related to condition of interest (test code = 03559-2) Whether the patient was Unknown hospitalized for condition of interest (test code = 79212-8) Whether the patient was admitted Unknown to intensive care unit (ICU) for condition of interest (test code = 13706-4) Whether patient resides in a Unknown congregate care setting (test code = 88861-6) status (test code = Unknown 56460-5) Date and time of symptom onset Unknown (test code = 35422-2) PHI MICHAELSARS-CoV-2 (COVID-19) RNA [Presence] in Respiratory specimen by GUSTAVO with probe [id number] 05:52:15 Test Item Value Reference Range Interpretation Comments SARS-CoV-2 (COVID-19) RNA Not detected [Presence] in Respiratory specimen by GUSTAVO with probe detection (test code = 19728-7) 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 employed in a Unknown healthcare setting (test code = 59971-1) Whether the patient has symptoms Unknown related to condition of interest (test code = 84000-6) Whether the patient was Unknown hospitalized for condition of interest (test code = 72119-0) Whether the patient was admitted Unknown to intensive care unit (ICU) for condition of interest (test code = 13336-7) Whether patient resides in a Unknown congregate care setting (test code = 13349-5) status (test code = Unknown 61908-7) Date and time of symptom onset Unknown (test code = 00772-1) PHI MICHAELSARS-CoV-2 (COVID-19) RNA [Presence] in Respiratory specimen by GUSTAVO with probe [id number] 05:19:43 Test Item Value Reference Range Interpretation Comments SARS-CoV-2 (COVID-19) RNA Not detected [Presence] in Respiratory specimen by GUSTAVO with probe detection (test code = 80129-5) 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 employed in a Unknown healthcare setting (test code = 06564-2) Whether the patient has symptoms Unknown related to condition of interest (test code = 90682-6) Whether the patient was Unknown hospitalized for condition of interest (test code = 12547-0) Whether the patient was admitted Unknown to intensive care unit (ICU) for condition of interest (test code = 57283-8) Whether patient resides in a Unknown congregate care setting (test code = 58107-2) status (test code = Unknown 01037-4) Date and time of symptom onset Unknown (test code = 92562-4) PHI MICHAELSARS-CoV-2 (COVID-19) RNA [Presence] in Respiratory specimen by GUSTAVO with probe [id number] 00:24:44 Test Item Value Reference Range Interpretation Comments SARS-CoV-2 (COVID-19) RNA Not detected [Presence] in Respiratory specimen by GUSTAVO with probe detection (test code = 10247-4) 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 employed in a Unknown healthcare setting (test code = 70649-3) Whether the patient has symptoms Unknown related to condition of interest (test code = 17640-9) Whether the patient was Unknown hospitalized for condition of interest (test code = 24150-4) Whether the patient was admitted Unknown to intensive care unit (ICU) for condition of interest (test code = 47758-8) Whether patient resides in a Unknown congregate care setting (test code = 82716-2) status (test code = Unknown 24704-8) Date and time of symptom onset Unknown (test code = 96456-9) PHI CORLEY YPCUUUQR-ZtL-7 (COVID-19) RNA [Presence] in Respiratory specimen by GUSTAVO with probe [id number] 07:50:50 Test Item Value Reference Range Interpretation Comments SARS-CoV-2 (COVID-19) RNA Not detected [Presence] in Respiratory specimen by GUSTAVO with probe detection (test code = 20660-5) 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 employed in a Unknown healthcare setting (test code = 51368-3) Whether the patient has symptoms Unknown related to condition of interest (test code = 55151-5) Whether the patient was Unknown hospitalized for condition of interest (test code = 92341-4) Whether the patient was admitted Unknown to intensive care unit (ICU) for condition of interest (test code = 97203-9) Whether patient resides in a Unknown congregate care setting (test code = 57219-9) status (test code = Unknown 37372-4) Date and time of symptom onset Unknown (test code = 21990-5) PHI MICHAELSARS-CoV-2 (COVID-19) RNA [Presence] in Respiratory specimen by GUSTAVO with probe [id number] 19:18:03 Test Item Value Reference Range Interpretation Comments SARS-CoV-2 (COVID-19) RNA Not detected [Presence] in Respiratory specimen by GUSTAVO with probe detection (test code = 74587-5) 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 employed in a No healthcare setting (test code = 48094-1) Whether the patient has symptoms Yes related to condition of interest (test code = 80020-2) Whether the patient was No hospitalized for condition of interest (test code = 34110-7) Whether the patient was admitted No to intensive care unit (ICU) for condition of interest (test code = 57704-9) Whether patient resides in a No congregate care setting (test code = 49942-2) status (test code = No 85006-6) Date and time of symptom onset Unknown (test code = 76749-2) PHI MICHAELSARS-CoV-2 (COVID-19) RNA [Presence] in Respiratory specimen by GUSTAVO with probe [id number] 11:44:34 Test Item Value Reference Range Interpretation Comments SARS-CoV-2 (COVID-19) RNA Not detected [Presence] in Respiratory specimen by GUSTAVO with probe detection (test code = 37682-8) 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 employed in a Unknown healthcare setting (test code = 51056-3) Whether the patient has symptoms Unknown related to condition of interest (test code = 90505-3) Whether the patient was Unknown hospitalized for condition of interest (test code = 87363-2) Whether the patient was admitted Unknown to intensive care unit (ICU) for condition of interest (test code = 87103-3) Whether patient resides in a Unknown congregate care setting (test code = 10602-1) status (test code = Unknown 49442-6) Date and time of symptom onset Unknown (test code = 45671-8) PHI MICHAELSARS-CoV-2 (COVID-19) RNA [Presence] in Respiratory specimen by GUSTAVO with probe [id number] 05:03:29 Test Item Value Reference Range Interpretation Comments SARS-CoV-2 (COVID-19) RNA Not detected [Presence] in Respiratory specimen by GUSTAVO with probe detection (test code = 31455-7) 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 employed in a Unknown healthcare setting (test code = 53064-4) Whether the patient has symptoms Unknown related to condition of interest (test code = 20830-9) Whether the patient was Unknown hospitalized for condition of interest (test code = 88218-4) Whether the patient was admitted Unknown to intensive care unit (ICU) for condition of interest (test code = 55965-4) Whether patient resides in a Unknown congregate care setting (test code = 73481-1) status (test code = Unknown 99546-4) Date and time of symptom onset Unknown (test code = 55723-6) PHI MICHAELSARS-CoV-2 (COVID-19) RNA [Presence] in Respiratory specimen by GUSTAVO with probe [id number] 16:50:47 Test Item Value Reference Range Interpretation Comments SARS-CoV-2 (COVID-19) RNA Not detected [Presence] in Respiratory specimen by GUSTAVO with probe detection (test code = 79556-7) 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 employed in a Unknown healthcare setting (test code = 75087-7) Whether the patient has symptoms Unknown related to condition of interest (test code = 59259-9) Whether the patient was Unknown hospitalized for condition of interest (test code = 14652-3) Whether the patient was admitted Unknown to intensive care unit (ICU) for condition of interest (test code = 92628-3) Whether patient resides in a Unknown congregate care setting (test code = 53397-0) status (test code = Unknown 37421-2) Date and time of symptom onset Unknown (test code = 29258-9) [facility]atitis B surface [id number] 23:01:06 Test Item Value Reference Range Interpretation Comments Hepatitis B surface Nonreactive Nonreactive antigen (test code = 5195-3) REJI (test code = REJI) Specimen is considered negative for HBsAg. Lab Interpretation (test Normal code = 68114-4) [facility], [id number] 23:01:06 Test Item Value Reference Range Interpretation Comments Hep B C IgM (test code = Nonreactive Nonreactive 02667-0) REJI (test code = REJI) Wrapper Stitcher ID - ADMIN Lab Interpretation (test Normal code = 80936-1) [facility] [id number] 23:01:06 Test Item Value Reference Range Interpretation Comments Hep A IgM (test code = Nonreactive Nonreactive 43311-9) REJI (test code = REJI) Wrapper Stitcher ID - ADMIN Lab Interpretation (test Normal code = 72251-6) [facility] [id number] 23:01:06 Test Item Value Reference Range Interpretation Comments Hepatitis C Ab (test code Nonreactive Nonreactive = 46814-1) REJI (test code = REJI) Wrapper Stitcher ID - ADMIN Lab Interpretation (test Normal code = 66315-2) [facility] [id number] 23:01:06 Test Item Value Reference Range Interpretation Comments Hepatitis B surface Nonreactive Nonreactive antigen (test code = 5195-3) REJI (test code = REJI) Specimen is considered negative for HBsAg. Lab Interpretation (test Normal code = 36332-9) [facility], [id number] 23:01:06 Test Item Value Reference Range Interpretation Comments Hep B C IgM (test code = Nonreactive Nonreactive 40844-7) REJI (test code = REJI) Wrapper Stitcher ID - ADMIN Lab Interpretation (test Normal code = 14254-3) [facility], [id number] 23:01:06 Test Item Value Reference Range Interpretation Comments Hep A IgM (test code = Nonreactive Nonreactive 18995-1) REJI (test code = REJI) Wrapper Stitcher ID - ADMIN Lab Interpretation (test Normal code = 00010-9) [facility] [id number] 23:01:06 Test Item Value Reference Range Interpretation Comments Hepatitis C Ab (test code Nonreactive Nonreactive = 62963-6) REJI (test code = REJI) Wrapper Stitcher ID - ADMIN Lab Interpretation (test Normal code = 47116-3) [facility] [id number] 23:01:06 Test Item Value Reference Range Interpretation Comments Hepatitis B surface Nonreactive Nonreactive antigen (test code = 5195-3) REJI (test code = REJI) Specimen is considered negative for HBsAg. Lab Interpretation (test Normal code = 65042-3) [facility] B core antibody, [id number] 23:01:06 Test Item Value Reference Range Interpretation Comments Hep B C IgM (test code = Nonreactive Nonreactive 74944-3) REJI (test code = REJI) Wrapper Stitcher ID - ADMIN Lab Interpretation (test Normal code = 04328-0) [facility], [id number] 23:01:06 Test Item Value Reference Range Interpretation Comments Hep A IgM (test code = Nonreactive Nonreactive 94678-0) REJI (test code = REJI) Wrapper Stitcher ID - ADMIN Lab Interpretation (test Normal code = 76793-6) [facility] [id number] 23:01:06 Test Item Value Reference Range Interpretation Comments Hepatitis C Ab (test code Nonreactive Nonreactive = 39209-4) REJI (test code = REJI) Wrapper Stitcher ID - ADMIN Lab Interpretation (test Normal code = 18770-8) [facility] B surface [id number] 23:01:06 Test Item Value Reference Range Interpretation Comments Hepatitis B surface Nonreactive Nonreactive antigen (test code = 5195-3) REJI (test code = REJI) Specimen is considered negative for HBsAg. Lab Interpretation (test Normal code = 39904-4) [facility] B core antibody, [id number] 23:01:06 Test Item Value Reference Range Interpretation Comments Hep B C IgM (test code = Nonreactive Nonreactive 26486-3) REJI (test code = REJI) Wrapper Stitcher ID - ADMIN Lab Interpretation (test Normal code = 95699-6) [facility], [id number] 23:01:06 Test Item Value Reference Range Interpretation Comments Hep A IgM (test code = Nonreactive Nonreactive 69631-6) REJI (test code = REJI) Wrapper Stitcher ID - ADMIN Lab Interpretation (test Normal code = 67010-3) [facility] [id number] 23:01:06 Test Item Value Reference Range Interpretation Comments Hepatitis C Ab (test code Nonreactive Nonreactive = 52569-0) REJI (test code = REJI) Wrapper Stitcher ID - ADMIN Lab Interpretation (test Normal code = 12579-9) [facility] B surface [id number] 23:01:06 Test Item Value Reference Range Interpretation Comments Hepatitis B surface Nonreactive Nonreactive antigen (test code = 5195-3) REJI (test code = REJI) Specimen is considered negative for HBsAg. Lab Interpretation (test Normal code = 51577-5) [facility] B core antibody, [id number] 23:01:06 Test Item Value Reference Range Interpretation Comments Hep B C IgM (test code = Nonreactive Nonreactive 40186-0) REJI (test code = REJI) Wrapper Stitcher ID - ADMIN Lab Interpretation (test Normal code = 42966-0) [facility] [id number] 23:01:06 Test Item Value Reference Range Interpretation Comments Hep A IgM (test code = Nonreactive Nonreactive 85307-7) REJI (test code = REJI) Wrapper Stitcher ID - ADMIN Lab Interpretation (test Normal code = 59038-9) [facility] [id number] 23:01:06 Test Item Value Reference Range Interpretation Comments Hepatitis C Ab (test code Nonreactive Nonreactive = 73787-2) REJI (test code = REJI) Wrapper Stitcher ID - ADMIN Lab Interpretation (test Normal code = 62010-8) [facility] [id number] 23:01:06 Test Item Value Reference Range Interpretation Comments HEPATITIS B SURFACE ANTIGEN (2) Nonreactive Nonreactive (BEAKER) (test code = 2585) Specimen is considered negative for HBsAg.HEPATITIS B CORE ANTIBODY, IGM 2022-01-23 23:01:06 Test Item Value Reference Range Interpretation Comments HEPATITIS B CORE IGM ANTIBODY Nonreactive Nonreactive (BEAKER) (test code = 645) Wrapper Stitcher ID - ADMINHEPATITIS C [id number] 23:01:06 Test Item Value Reference Range Interpretation Comments HEPATITIS C ANTIBODY (BEAKER) Nonreactive Nonreactive (test code = 367) Wrapper Stitcher ID - ADMINHEPATITIS A ANTIBODY, [id number] 23:01:06 Test Item Value Reference Range Interpretation Comments HEPATITIS A IGM ANTIBODY (BEAKER) Nonreactive Nonreactive (test code = 498) Wrapper Stitcher ID - [id number]-YmY-3 (COVID-19) RNA [Presence] in Respiratory specimen by GUSTAVO with probe [id number] 04:55:57 Test Item Value Reference Range Interpretation Comments SARS-CoV-2 (COVID-19) RNA Not detected [Presence] in Respiratory specimen by GUSTAVO with probe detection (test code = 01209-5) 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 employed in a Unknown healthcare setting (test code = 83090-2) Whether the patient has symptoms Unknown related to condition of interest (test code = 98528-1) Whether the patient was Unknown hospitalized for condition of interest (test code = 82202-1) Whether the patient was admitted Unknown to intensive care unit (ICU) for condition of interest (test code = 91516-3) Whether patient resides in a Unknown congregate care setting (test code = 88341-9) status (test code = Unknown 39631-5) Date and time of symptom onset Unknown (test code = 63201-2) PHI MICHAELSARS-CoV-2 (COVID-19) RNA [Presence] in Respiratory specimen by GUSTAVO with probe [id number] 01:48:29 Test Item Value Reference Range Interpretation Comments SARS-CoV-2 (COVID-19) RNA Not detected [Presence] in Respiratory specimen by GUSTAVO with probe detection (test code = 27750-6) 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 employed in a Unknown healthcare setting (test code = 38424-4) Whether the patient has symptoms Unknown related to condition of interest (test code = 24615-8) Whether the patient was Unknown hospitalized for condition of interest (test code = 20687-3) Whether the patient was admitted Unknown to intensive care unit (ICU) for condition of interest (test code = 29249-8) Whether patient resides in a Unknown congregate care setting (test code = 35155-2) status (test code = Unknown 31059-0) Date and time of symptom onset Unknown (test code = 97858-5) [facility]IP BAHAI [facility], [id number] 08:50:00Unlisted Reason for Exam - Click Yes and Enter Reason Below->YesUnlisted Reason for Exam->diarrhea. abdominal pain. C dif colitis.Is this for enterography?->NoWill this procedure require oral contrast?->No [facility] 1960 Sex: FFINAL [...] MDReport Verified Date/Time: 09/15/2021 08:50:57 Basic Metabolic [id number] 07:34:36 Test Item Value Reference Range Interpretation Comments Sodium (test code = 138 meq/L 786-822 0331-2) Potassium (test code 3.7 meq/L 3.5-5.1 Specime [...] (test code = 7.5 mg/dL 8.4-10.2 L 17052-5) EGFR (test code = 83 mL/min/1.73 [place] [address]-4) NOT ACCURATE CREATININE CLEARANCE IN PREDICTING GLOMERULAR FILTRATION RATE . ESTIMATED GFR I S NOT APPLICABLE FOR DIALYSIS PATIENTS. REJI (test code = REJI) Wrapper Stitcher ID - EOSpecimen moderately icteric Lab Interpretation Abnormal (test code = 63016-4) [facility] Metabolic [id number] 07:34:36 Test Item Value Reference Range Interpretation Comments Sodium (test code = 138 meq/L 231-633 5149-2) Potassium (test code 3.7 meq/L 3.5-5.1 Specime [...] (test code = 7.5 mg/dL 8.4-10.2 L 40794-8) EGFR (test code = 83 mL/min/1.[place] [address]-7) NOT ACCURATE CREATININE CLEARANCE IN PREDICTING GLOMERULAR FILTRATION RATE . ESTIMATED GFR I S NOT APPLICABLE FOR DIALYSIS PATIENTS. REJI (test code = REJI) Wrapper Stitcher ID - EOSpecimen moderately icteric Lab Interpretation Abnormal (test code = 25817-0) [facility] Metabolic [id number] 07:34:36 Test Item Value Reference Range Interpretation Comments Sodium (test code = 138 meq/L 090-135 3629-2) Potassium (test code 3.7 meq/L 3.5-5.1 Specime [...] (test code = 7.5 mg/dL 8.4-10.2 L 04376-9) EGFR (test code = 83 mL/min/1.[place] [address]-5) NOT ACCURATE CREATININE CLEARANCE IN PREDICTING GLOMERULAR FILTRATION RATE . ESTIMATED GFR I S NOT APPLICABLE FOR DIALYSIS PATIENTS. REJI (test code = REJI) Wrapper Stitcher ID - EOSpecimen moderately icteric Lab Interpretation Abnormal (test code = 00879-7) [facility] METABOLIC [id number] 07:34:36 Test Item Value Reference Range Interpretation [...] S NOT APPLICABLE FOR DIALYSIS PATIEN TS. Wrapper Stitcher ID - EOSpecimen moderately ictericHepatic function oaain4904-10-17 07:29:08 Test Item Value Reference Range Interpretation Comments Protein, Total (test 5.2 See_Comment L Specime n slightly code = 2885-2) hemolyzed [Automated message] The system which generated this result transmitted reference range : 6.0 - 8.3 gm/dL . The reference range was not used to interpr et this result as normal/abnormal . Albumin (test code = 2.1 g/dL 3.5-5.0 L Specime n slightly 40308-0) hemolyzed Total Bilirubin (test 3.9 mg/dL 0.2-1.2 [...] 1742-6) hemolyzed REJI (test code = REJI) Wrapper Stitcher ID - EOSpecimen moderately icteric Lab Interpretation Abnormal (test code = 92200-0) [facility] [id number] 07:29:08 Test Item Value Reference Range Interpretation Comments Protein, Total (test 5.2 See_Comment L Specime n slightly code = 2885-2) hemolyzed [Automated message] The system which generated this result transmitted reference range : 6.0 - 8.3 gm/dL . The reference range was not used to interpr et this result as normal/abnormal . Albumin (test code = 2.1 g/dL 3.5-5.0 L Specime n slightly 42415-4) hemolyzed Total Bilirubin (test 3.9 mg/dL 0.2-1.2 [...] 1742-6) hemolyzed REJI (test code = REJI) Wrapper Stitcher ID - EOSalli moderately icteric Lab Interpretation Abnormal (test code = 08807-3) [facility] [id number] 07:29:08 Test Item Value Reference Range Interpretation Comments Protein, Total (test 5.2 See_Comment L Specime n slightly code = 2885-2) hemolyzed [Automated message] The system which generated this result transmitted reference range : 6.0 - 8.3 gm/dL . The reference range was not used to interpr et this result as normal/abnormal . Albumin (test code = 2.1 g/dL 3.5-5.0 L Specime n slightly 76479-0) hemolyzed Total Bilirubin (test 3.9 mg/dL 0.2-1.2 [...] 1742-6) hemolyzed REJI (test code = REJI) Wrapper Stitcher ID - EOSpecimen moderately icteric Lab Interpretation Abnormal (test code = 20676-9) [facility] [id number] 07:29:08 Test Item Value Reference Range Interpretation [...] Specimen slightly (test code = 347) hemolyzed Wrapper Stitcher ID - EOSpecimen moderately ictericProthrombin time/[id number] 06:46:58 Test Item Value Reference Interpretation Comments [...] valves. Lab Interpretation Abnormal (test code = 67378-2) [facility]/[id number] 06:46:58 Test Item Value Reference Interpretation Comments Range Protime (test code = 22.1 See_Comment H [Autom ated 5902-2) message] The system which generated this result transmitted reference range : 11.9 - 14.2 seconds. The reference range was not used to interpret this result as normal/abnormal . INR (test code = 1.96 See_Comment [Automated [employer]-6) message] The system which generated this result [...] valves. Lab Interpretation Abnormal (test code = 14707-6) [facility]th[facility]/[id number] 06:46:58 Test Item Value Reference Interpretation Comments Range Protime (test code = 22.1 See_Comment H [Autom ated 5902-2) message] The system which generated this result transmitted reference range : 11.9 - 14.2 seconds. The reference range was not used to interpret this result as normal/abnormal . INR (test code = 1.96 See_Comment [Automated [employer]-6) message] The system which generated this result [...] valves. Lab Interpretation Abnormal (test code = 41087-9) [facility]PROTHROMBIN [facility]/[id number] 06:46:58 Test Item Value Reference Range Interpretation Comments PROTIME (BEAKER) 22.1 seconds 11.9-14.2 H (test code = 759) INR (BEAKER) (test 1.96 See_Comment [Automat ed message] code = 370) The system [employer] generated this result transmitted ref erence range: <=5.90. The reference range was not used to int erpret this result as normal/abnormal . RECOMMENDED COUMADIN/WARFARIN INR THERAPY RANGESSTANDARD DOSE: 2.0 - 3.0 Includes: PROPHYLAXIS for venous thrombosis, systemic embolization; TREATMENT for venous thrombosis and/or pulmonary embolus.HIGH RISK: Target INR is 2.5-3.5 for patients with mechanical heart valves.CBC with platelet count + automated [id number] 06:38:55 Test Item Value Reference Range Interpretation Comments WBC (test code = 6690-2) 7.9 See_Comment [A utomated message] The system [employer] generated this result transmitted ref erence range: 3.5 - 10 .5 K/L. The refe rence range was not u sed to interpret this result as normal/abnor mal. RBC (test code = 789-8) 2.53 See_Comment L [Au tomated message] The system [employer] generated this result transmitted ref erence range: 3.93 - 5 .22 M/L. The refe rence range was not u sed to interpret this result as normal/abnor mal. MCHC (test code = 786-4) 30.8 See_Comment L [A utomated message] The system [employer] generated this result transmitted ref erence [...] L [Aut omated message] 777-3) The system [employer] generated this result transmitted ref erence range: 150 - 45 0 K/CU MM. The referen ce range was not u sed to interpret this result as normal/abnor mal. MPV (test code = 10.6 fL 9.4-12.3 68167-3) nRBC (test code = 413) 0 See_Comment [Aut omated message] The system [employer] generated this result transmitted ref erence [...] See_Comment [Aut omated message] 670) The system [employer] generated this result transmitted ref erence range: 1.56 - 6 .13 K/L. The refe rence range was not u sed to interpret this result as normal/abnor mal. # Lymphs (test code = 0.99 See_Comment L [Auto mated message] 414) The system [employer] generated this result transmitted ref erence range: 1.18 - 3 .74 K/L. The refe rence range was not u sed to interpret this result as normal/abnor mal. # Monos (test code = 0.83 See_Comment H [Autom ated message] 415) The system [employer] generated this result transmitted ref erence range: 0.24 - 0 .36 K/L. The refe rence range was not u sed to interpret this result as normal/abnor mal. # Eos (test code = 416) 0.33 See_Comment [Au tomated message] The system [employer] generated this result transmitted ref erence range: 0.04 - 0 .36 K/L. The refe rence range was not u sed to interpret this result as normal/abnor mal. # Baso (test code = 417) 0.04 See_Comment [A utomated message] The system [employer] generated this result transmitted ref erence range: 0.01 - 0 .08 K/L. The refe rence range was not u sed to interpret this result as normal/abnor mal. Immature 1 % 0-1 Granulocytes-Relative (test code = 2801) Lab Interpretation (test Abnormal code = 13262-7) [facility] with platelet count + automated [id number] 06:38:55 Test Item Value Reference Range Interpretation Comments WBC (test code = 6690-2) 7.9 See_Comment [A utomated message] The system [employer] generated this result transmitted ref erence range: 3.5 - 10 .5 K/L. The refe rence range was not u sed to interpret this result as normal/abnor mal. RBC (test code = 789-8) 2.53 See_Comment L [Au tomated message] The system [employer] generated this result transmitted ref erence range: 3.93 - 5 .22 M/L. The refe rence range was not u sed to interpret this result as normal/abnor mal. MCHC (test code = 786-4) 30.8 See_Comment L [A utomated message] The system [employer] generated this result transmitted ref erence [...] L [Aut omated message] 777-3) The system [employer] generated this result transmitted ref erence range: 150 - 45 0 K/CU MM. The referen ce range was not u sed to interpret this result as normal/abnor mal. MPV (test code = 10.6 fL 9.4-12.3 84667-0) nRBC (test code = 413) 0 See_Comment [Aut omated message] The system [employer] generated this result transmitted ref erence [...] See_Comment [Aut omated message] 670) The system [employer] generated this result transmitted ref erence range: 1.56 - 6 .13 K/L. The refe rence range was not u sed to interpret this result as normal/abnor mal. # Lymphs (test code = 0.99 See_Comment L [Auto mated message] 414) The system [employer] generated this result transmitted ref erence range: 1.18 - 3 .74 K/L. The refe rence range was not u sed to interpret this result as normal/abnor mal. # Monos (test code = 0.83 See_Comment H [Autom ated message] 415) The system [employer] generated this result transmitted ref erence range: 0.24 - 0 .36 K/L. The refe rence range was not u sed to interpret this result as normal/abnor mal. # Eos (test code = 416) 0.33 See_Comment [Au tomated message] The system [employer] generated this result transmitted ref erence range: 0.04 - 0 .36 K/L. The refe rence range was not u sed to interpret this result as normal/abnor mal. # Baso (test code = 417) 0.04 See_Comment [A utomated message] The system [employer] generated this result transmitted ref erence range: 0.01 - 0 .08 K/L. The refe rence range was not u sed to interpret this result as normal/abnor mal. Immature 1 % 0-1 Granulocytes-Relative (test code = 2801) Lab Interpretation (test Abnormal code = 70217-4) [facility] with platelet count + automated [id number] 06:38:55 Test Item Value Reference Range Interpretation Comments WBC (test code = 6690-2) 7.9 See_Comment [A utomated message] The system [employer] generated this result transmitted ref erence range: 3.5 - 10 .5 K/L. The refe rence range was not u sed to interpret this result as normal/abnor mal. RBC (test code = 789-8) 2.53 See_Comment L [Au tomated message] The system [employer] generated this result transmitted ref erence range: 3.93 - 5 .22 M/L. The refe rence range was not u sed to interpret this result as normal/abnor mal. MCHC (test code = 786-4) 30.8 See_Comment L [A utomated message] The system [employer] generated this result transmitted ref erence [...] L [Aut omated message] 777-3) The system [employer] generated this result transmitted ref erence range: 150 - 45 0 K/CU MM. The referen ce range was not u sed to interpret this result as normal/abnor mal. MPV (test code = 10.6 fL 9.4-12.3 20578-4) nRBC (test code = 413) 0 See_Comment [Aut omated message] The system [employer] generated this result transmitted ref erence [...] See_Comment [Aut omated message] 670) The system [employer] generated this result transmitted ref erence range: 1.56 - 6 .13 K/L. The refe rence range was not u sed to interpret this result as normal/abnor mal. # Lymphs (test code = 0.99 See_Comment L [Auto mated message] 414) The system [employer] generated this result transmitted ref erence range: 1.18 - 3 .74 K/L. The refe rence range was not u sed to interpret this result as normal/abnor mal. # Monos (test code = 0.83 See_Comment H [Autom ated message] 415) The system [employer] generated this result transmitted ref erence range: 0.24 - 0 .36 K/L. The refe rence range was not u sed to interpret this result as normal/abnor mal. # Eos (test code = 416) 0.33 See_Comment [Au tomated message] The system [employer] generated this result transmitted ref erence range: 0.04 - 0 .36 K/L. The refe rence range was not u sed to interpret this result as normal/abnor mal. # Baso (test code = 417) 0.04 See_Comment [A utomated message] The system [employer] generated this result transmitted ref erence range: 0.01 - 0 .08 K/L. The refe rence range was not u sed to interpret this result as normal/abnor mal. Immature 1 % 0-1 Granulocytes-Relative (test code = 2801) Lab Interpretation (test Abnormal code = 02885-6) [facility] W/PLT COUNT & AUTO [id number] 06:38:55 Test Item Value Reference Range Interpretation [...] = 2801) CBC W/PLT COUNT & AUTO [id number] 10:18:58 Test Item Value Reference Range Interpretation [...] (BEAKER) (test code = 2801) BASIC METABOLIC [id number] 08:06:00 Test Item Value Reference Range Interpretation [...] S NOT APPLICABLE FOR DIALYSIS PATIEN TS. Wrapper Stitcher ID - MARLON Ferrera moderately ictericHEPATIC FUNCTION [id number] 08:06:00 Test Item Value Reference Range Interpretation [...] (test code = 19 U/L 6-55 347) Wrapper Stitcher ID - MARLON Ferrera moderately ictericPROTHROMBIN TIME/[id number] 07:51:15 Test Item Value Reference Range Interpretation Comments PROTIME (BEAKER) 20.6 seconds 11.9-14.2 H (test code = 759) INR (BEAKER) (test 1.80 See_Comment [Automat ed message] code = 370) The system [employer] generated this result transmitted ref erence range: <=5.90. The reference range was not used to int erpret this result as normal/abnormal . RECOMMENDED COUMADIN/WARFARIN INR THERAPY RANGESSTANDARD DOSE: 2.0 - 3.0 Includes: PROPHYLAXIS for venous thrombosis, systemic embolization; TREATMENT for venous thrombosis and/or pulmonary embolus.HIGH RISK: Target INR is 2.5-3.5 for patients with mechanical heart valves.HEPATIC FUNCTION [id number] 07:41:30 Test Item Value Reference Range Interpretation [...] (test code = 21 U/L 6-55 347) Wrapper Stitcher ID - MARLON KENTpecimen moderately ictericBASIC METABOLIC [id number] 07:41:29 Test Item Value Reference Range Interpretation [...] S NOT APPLICABLE FOR DIALYSIS PATIEN TS. Wrapper Stitcher ID - PIAYA LSpecimen moderately ictericPROTHROMBIN TIME/[id number] 07:34:58 Test Item Value Reference Range Interpretation Comments PROTIME (BEAKER) 19.3 seconds 11.9-14.2 H (test code = 759) INR (BEAKER) (test 1.66 See_Comment [Automat ed message] code = 370) The system [employer] generated this result transmitted ref erence range: <=5.90. The reference range was not used to int erpret this result as normal/abnormal . RECOMMENDED COUMADIN/WARFARIN INR THERAPY RANGESSTANDARD DOSE: 2.0 - 3.0 Includes: PROPHYLAXIS for venous thrombosis, systemic embolization; TREATMENT for venous thrombosis and/or pulmonary embolus.HIGH RISK: Target INR is 2.5-3.5 for patients with mechanical heart valves.CBC W/PLT COUNT & AUTO [id number] 07:30:35 Test Item Value Reference Range Interpretation [...] PERCENT (BEAKER) (test code = 2801) VITAMIN [id number] 07:00:04 Test Item Value Reference Range Interpretation Comments VITAMIN B12 (BEAKER) (test code = > pg/mL 213-816 H 774) Wrapper Stitcher GINA - ZAC WBASIC METABOLIC [id number] 06:43:51 Test Item Value Reference Range Interpretation [...] S NOT APPLICABLE FOR DIALYSIS PATIEN TS. Wrapper Stitcher ID - ZAC WOperator ID - MARLON LSpecimen slightly ictericVITAMIN D, [id number] 05:27:33 Test Item Value Reference Range Interpretation Comments VITAMIN D 25-OH (BEAKER) (test code 4.4 ng/mL 6.6-49.9 L = 2764) Effective 05/22/2017: Reference Range ChangeNew: 6.6-49.9 ng/mL Previous: 13.0- 47.8 ng/mLRecommendedVitamin D Target Range: 30.0-40.0 ng/mLOperator ID - MARLON LC-REACTIVE [id number] 05:23:46 Test Item Value Reference Range Interpretation Comments C-REACTIVE PROTEIN (BEAKER) (test 1.00 mg/dL 0.00-0.50 H code = 676) Wrapper Stitcher ID - ZAC [id number] 05:23:45 Test Item Value Reference Range Interpretation Comments MAGNESIUM (BEAKER) (test code = 1.6 mg/dL 1.6-2.6 627) Wrapper Stitcher ID - ZAC WHEPATIC FUNCTION [id number] 05:23:45 Test Item Value Reference Range Interpretation [...] (test code = 17 U/L 6-55 347) Wrapper Stitcher ID - ZAC Rosales slightly ictericPROTHROMBIN TIME/[id number] 04:53:27 Test Item Value Reference Range Interpretation Comments PROTIME (BEAKER) 22.4 seconds 11.9-14.2 H (test code = 759) INR (BEAKER) (test 2.00 See_Comment [Automat ed message] code = 370) The system [employer] generated this result transmitted ref erence range: <=5.90. The reference range was not used to int erpret this result as normal/abnormal . RECOMMENDED COUMADIN/WARFARIN INR THERAPY RANGESSTANDARD DOSE: 2.0 - 3.0 Includes: PROPHYLAXIS for venous thrombosis, systemic embolization; TREATMENT for venous thrombosis and/or pulmonary embolus.HIGH RISK: Target INR is 2.5-3.5 for patients with mechanical heart valves.CBC W/PLT COUNT & AUTO [id number] 04:49:49 Test Item Value Reference Range Interpretation [...] (BEAKER) (test code = 2801) Basic Metabolic [id number] 08:26:03 Test Item Value Reference Range Interpretation Comments Sodium (test code = 137 meq/L 761-821 0839-2) Potassium (test code 3.5 meq/L 3.5-5.1 = 2823-3) Chloride (test code = 109 meq/L 98-107 H 2075-0) CO2 (test code = 24 meq/L 22-29 2028-9) BUN (test code = 13 mg/dL 7-21 3094-0) Creatinine (test code 0.73 mg/dL 0.57-1.25 = 2160-0) Glucose (test code = 85 mg/dL 70-105 2345-7) Calcium (test code = 7.7 mg/dL 8.4-10.2 L 56026-4) EGFR (test code = 81 mL/min/1.73 [place] [address]-2) NOT ACCURATE CREATININE CLEARANCE IN PREDICTING GLOMERULAR FILTRATION RATE . ESTIMATED GFR I S NOT APPLICABLE FOR DIALYSIS PATIENTS. REJI (test code = REJI) Wrapper Stitcher ID - MARLON [place] ID - DBSpecimen slightly icteric Lab Interpretation Abnormal (test code = 40347-9) [facility] METABOLIC [id number] 08:26:03 Test Item Value Reference Range Interpretation [...] S NOT APPLICABLE FOR DIALYSIS PATIEN TS. Wrapper Stitcher ID - MARLON [place] ID - DBSpecimen slightly ictericHepatic function [id number] 07:24:45 Test Item Value Reference Range Interpretation Comments Protein, Total (test 4.9 See_Comment L [Autom ated code = 2885-2) message] The system which generated this result transmitted reference range : 6.0 - 8.3 gm/dL . The reference range was not used to interpr et this result as normal/abnormal . Albumin (test code = 2.2 g/dL 3.5-5.0 L 15775-0) Total Bilirubin (test 4.0 mg/dL 0.2-1.2 H code = 1974-2) Bilirubin, Direct 1.5 mg/dL 0.1-0.5 H (test code = 1968-7) Alkaline Phosphatase 111 U/L 40-150 (test code = 6768-6) AST (test code = 53 U/L 5-34 H 1920-8) ALT (test code = 17 U/L 6-55 1742-6) REJI (test code = REJI) Wrapper Stitcher ID - MARLON LSpecnicole slightly icteric Lab Interpretation Abnormal (test code = 43911-5) [facility] Test Item Value Reference Range Interpretation Comments Magnesium (test code = 1.7 mg/dL 1.6-2.6 23626-0) REJI (test code = REJI) Wrapper Stitcher ID Ajay MASON L Lab Interpretation (test Normal code = 92526-9) [facility]2022-01-31 07:24:45 Test Item Value Reference Range Interpretation Comments MAGNESIUM (BEAKER) (test code = 1.7 mg/dL 1.6-2.6 627) Wrapper Stitcher ID - MARLON LHEPATIC FUNCTION [id number] 07:24:45 Test Item Value Reference Range Interpretation [...] (test code = 17 U/L 6-55 347) Wrapper Stitcher ID - MARLON LSpecimen slightly ictericProthrombin time/[id number] 06:40:57 Test Item Value Reference Interpretation Comments Range Protime (test code = 22.5 See_Comment H [Autom ated 8692-2) message] The system which generated this result transmitted reference range : 11.9 - 14.2 seconds. The reference range was not used to interpret this result as normal/abnormal . INR (test code = 2.01 See_Comment [Automated 3851-6) message] The system which generated this result [...] valves. Lab Interpretation Abnormal (test code = 78052-9) [facility][id number] 06:40:57 Test Item Value Reference Range Interpretation Comments PROTIME (BEAKER) 22.5 seconds 11.9-14.2 H (test code = 759) INR (BEAKER) (test 2.01 See_Comment [Automat ed message] code = 370) The system [employer] generated this result transmitted ref erence range: <=5.90. The reference range was not used to int erpret this result as normal/abnormal . RECOMMENDED COUMADIN/WARFARIN INR THERAPY RANGESSTANDARD DOSE: 2.0 - 3.0 Includes: PROPHYLAXIS for venous thrombosis, systemic embolization; TREATMENT for venous thrombosis and/or pulmonary embolus.HIGH RISK: Target INR is 2.5-3.5 for patients with mechanical heart valves.CBC with platelet count + automated [id number] 06:36:06 Test Item Value Reference Range Interpretation Comments WBC (test code = 6690-2) 10.6 See_Comment H [A utomated message] The system [employer] generated this result transmitted ref erence range: 3.5 - 10 .5 K/L. The refe rence range was not u sed to interpret this result as normal/abnor mal. RBC (test code = 789-8) 2.76 See_Comment L [Au tomated message] The system [employer] generated this result transmitted ref erence range: 3.93 - 5 .22 M/L. The refe rence range was not u sed to interpret this result as normal/abnor mal. MCHC (test code = 786-4) 31.5 See_Comment L [A utomated message] The system [employer] generated this result transmitted ref erence [...] L [Aut omated message] 777-3) The system [employer] generated this result transmitted ref erence range: 150 - 45 0 K/CU MM. The referen ce range was not u sed to interpret this result as normal/abnor mal. MPV (test code = 9.6 fL 9.4-12.3 77242-3) nRBC (test code = 413) 0 See_Comment [Aut omated message] The system [employer] generated this result transmitted ref erence [...] H [Aut omated message] 670) The system [employer] generated this result transmitted ref erence range: 1.56 - 6 .13 K/L. The refe rence range was not u sed to interpret this result as normal/abnor mal. # Lymphs (test code = 1.18 See_Comment [Auto mated message] 414) The system [employer] generated this result transmitted ref erence range: 1.18 - 3 .74 K/L. The refe rence range was not u sed to interpret this result as normal/abnor mal. # Monos (test code = 0.64 See_Comment H [Autom ated message] 415) The system [employer] generated this result transmitted ref erence range: 0.24 - 0 .36 K/L. The refe rence range was not u sed to interpret this result as normal/abnor mal. # Eos (test code = 416) 0.31 See_Comment [Au tomated message] The system [employer] generated this result transmitted ref erence range: 0.04 - 0 .36 K/L. The refe rence range was not u sed to interpret this result as normal/abnor mal. # Baso (test code = 417) 0.02 See_Comment [A utomated message] The system [employer] generated this result transmitted ref erence range: 0.01 - 0 .08 K/L. The refe rence range was not u sed to interpret this result as normal/abnor mal. Immature 1 % 0-1 Granulocytes-Relative (test code = 2801) Lab Interpretation (test Abnormal code = 99046-1) [facility] W/PLT COUNT & AUTO [id number] 06:36:06 Test Item Value Reference Range Interpretation [...] (BEAKER) (test code = 2801) BASIC METABOLIC [id number] 09:04:28 Test Item Value Reference Range Interpretation [...] S NOT APPLICABLE FOR DIALYSIS PATIEN TS. Wrapper Stitcher ID - DBSpecimen moderately jwwkcqmXAMRPJMBU8146-67-54 08:26:10 Test Item Value Reference Range Interpretation Comments MAGNESIUM (BEAKER) (test code = 1.8 mg/dL 1.6-2.6 627) Wrapper Stitcher ID - DBHEPATIC FUNCTION [id number] 08:26:10 Test Item Value Reference Range Interpretation [...] (test code = 17 U/L 6-55 347) Wrapper Stitcher ID - DBSpecimen moderately ictericPROTHROMBIN TIME/[id number] 07:14:13 Test Item Value Reference Range Interpretation Comments PROTIME (BEAKER) 23.1 seconds 11.9-14.2 H (test code = 759) INR (BEAKER) (test 2.08 See_Comment [Automat ed message] code = 370) The system [employer] generated this result transmitted ref erence range: <=5.90. The reference range was not used to int erpret this result as normal/abnormal . RECOMMENDED COUMADIN/WARFARIN INR THERAPY RANGESSTANDARD DOSE: 2.0 - 3.0 Includes: PROPHYLAXIS for venous thrombosis, systemic embolization; TREATMENT for venous thrombosis and/or pulmonary embolus.HIGH RISK: Target INR is 2.5-3.5 for patients with mechanical heart valves.CBC W/PLT COUNT & AUTO [id number] 07:07:41 Test Item Value Reference Range Interpretation [...] (BEAKER) (test code = 2801) BASIC METABOLIC [id number] 09:04:18 Test Item Value Reference Range Interpretation [...] S NOT APPLICABLE FOR DIALYSIS PATIEN TS. Wrapper Stitcher ID - DBOperator ID - DBSpecimen moderately ictericHEPATIC FUNCTION [id number] 07:53:06 Test Item Value Reference Range Interpretation [...] (test code = 16 U/L 6-55 347) Wrapper Stitcher ID - DBSpecimen moderately ictericManual Lyuwvgslwbtt1750-93-53 07:50:25 Test Item Value Reference Range Interpretation [...] Ovalocytes (test code = 1+ few 477) [place] Cells (test code = 1+ few 474) Artifact (test code = Present 3432) Platelet Conc (test code Decreased = 3438) RJEI (test code = REJI) Wrapper Stitcher ID - michaela balsaraUser comments: Slide comments: Lab Interpretation (test Abnormal code = 47729-1) [facility] Wtjskayhwevi7721-77-83 07:50:25 Test Item Value Reference Range Interpretation [...] Ovalocytes (test code = 1+ few 477) [place] Cells (test code = 1+ few 474) Artifact (test code = Present 3432) Platelet Conc (test code Decreased = 3438) REJI (test code = REJI) Wrapper Stitcher ID - michaela balsaraUser comments: Slide comments: Lab Interpretation (test Abnormal code = 37760-7) [facility] Apyqjhcfjhhe5527-32-63 07:50:25 Test Item Value Reference Range Interpretation [...] Ovalocytes (test code = 1+ few 477) [place] Cells (test code = 1+ few 474) Artifact (test code = Present 3432) Platelet Conc (test code Decreased = 3438) REJI (test code = REJI) Wrapper Stitcher ID - michaela cardenasMarcail comments: Slide comments: Lab Interpretation (test Abnormal code = 33442-7) [facility] Zfeciwdvtfwq3336-49-10 07:50:25 Test Item Value Reference Range Interpretation [...] = 3438) REJI (test code = REJI) Wrapper Stitcher ID - michaela Cutler comments: Slide comments: Lab Interpretation (test Abnormal code = 44993-5) [facility](CELLAVISION MANUAL DIFF)2021-09-09 07:50:25 Test Item [...] CONCENTRATION Decreased (CELLAVISION)(BEAKER) (test code = 3438) Wrapper Stitcher ID - michaela Cutler comments: Slide comments:CBC W/PLT COUNT & AUTO [id number] 07:50:24 Test Item Value Reference Range Interpretation [...] WBC 0-0 (test code = 413) PROTHROMBIN TIME/[id number] 06:28:05 Test Item Value Reference Range Interpretation Comments PROTIME (BEAKER) 24.0 seconds 11.9-14.2 H (test code = 759) INR (BEAKER) (test 2.18 See_Comment [Automat ed message] code = 370) The system [employer] generated this result transmitted ref erence [...] = No growth in 5 days 6463-4) [facility]ipuncture) 2021-09-08 14:01:01 Test Item Value Reference Range Interpretation Comments Result (test code = No growth in 5 days 6463-4) [facility]uncture) 2021-09-08 14:01:01 Test Item Value Reference Range Interpretation Comments Result (test code = No growth in 5 days 6463-4) [facility] 2021-09-08 14:01:01 Test Item Value Reference Range Interpretation Comments Result (test code = No growth in 5 days 6463-4) [facility] [id number] 14:01:01 Test Item Value Reference Range Interpretation Comments CULTURE (BEAKER) (test No growth in 5 days code = 1095) [id number] 11:09:32 Test Item Value Reference Range Interpretation Comments Ammonia (test code = 35 See_Comment [Autom ated 75921-3) message] The system which generated this result transmit barron reference range : 18 - 72 mol/L . The reference range was not u sed to interpret th is result as normal/abnormal . REJI (test code = REJI) Wrapper Stitcher ID - PIAYA L Lab Interpretation Normal (test code = 69489-1) [facility] 11:09[facility]32 Test Item Value Reference Range Interpretation Comments Ammonia (test code = 35 See_Comment [Autom ated 93658-7) message] The system which generated this result transmit barron reference range : 18 - 72 mol/L . The reference range was not u sed to interpret th is result as normal/abnormal . REJI (test code = REJI) Wrapper Stitcher ID - PIAYA L Lab Interpretation Normal (test code = 25860-5) [facility] 11:09:32 Test Item Value Reference Range Interpretation Comments Ammonia (test code = 35 See_Comment [Autom ated 29150-8) message] The system which generated this result transmit barron reference range : 18 - 72 mol/L . The reference range was not u sed to interpret th is result as normal/abnormal . REJI (test code = REJI) Wrapper Stitcher ID - MARLON L Lab Interpretation Normal (test code = 80960-8) [facility]2022-01-28 11:09:32 Test Item Value Reference Range Interpretation Comments Ammonia (test code = 35 See_Comment [Autom ated 77478-3) message] The system which generated this result transmit barron reference range : 18 - 72 mol/L . The reference range was not u sed to interpret th is result as normal/abnormal . REJI (test code = REJI) Wrapper Stitcher ID - ELODIAAYA L Lab Interpretation Normal (test code = 58089-3) [facility]2022-01-28 11:09:32 Test Item Value Reference Range Interpretation Comments AMMONIA (BEAKER) (test code = 348) 35 mol/L 18-72 Wrapper Stitcher ID - PIAYA LCBC W/PLT COUNT & AUTO [id number] 07:57:44 Test Item Value Reference Range Interpretation [...] CONCENTRATION Decreased (CELLAVISION)(BEAKER) (test code = 3438) Wrapper Stitcher GINA Ferguson comments: Slide comments:BASIC METABOLIC [id number] 06:46:23 Test Item Value Reference Range Interpretation [...] S NOT APPLICABLE FOR DIALYSIS PATIEN TS. Wrapper Stitcher ID Ajay WOODSpecimen slightly mqautsrBziglubqqq2657-68-90 06:42:47 Test Item Value Reference Range Interpretation Comments Phosphorus (test code = 2.4 mg/dL 2.3-4.7 2777-1) REJI (test code = REJI) Wrapper Stitcher GINA Neal Lab Interpretation (test Normal code = 47725-6) [facility] 06:42:47 Test Item Value Reference Range Interpretation Comments Phosphorus (test code = 2.4 mg/dL 2.3-4.7 2777-1) REJI (test code = REJI) Wrapper Stitcher ID - ZAC W Lab Interpretation (test Normal code = 85698-5) [facility] 06:42:47 Test Item Value Reference Range Interpretation Comments Phosphorus (test code = 2.4 mg/dL 2.3-4.7 2777-1) REJI (test code = REJI) Wrapper Stitcher ID - ZAC W Lab Interpretation (test Normal code = 27927-7) [facility] 06:42:47 Test Item Value Reference Range Interpretation Comments Phosphorus (test code = 2.4 mg/dL 2.3-4.7 2777-1) REJI (test code = REJI) Wrapper Stitcher ID - ZAC W Lab Interpretation (test Normal code = 94531-6) [facility]2022-[facility]-28 06:42:47 Test Item Value Reference Range Interpretation Comments PHOSPHORUS (BEAKER) (test code = 2.4 mg/dL 2.3-4.7 604) Wrapper Stitcher ID - ZAC WHEPATIC FUNCTION [id number] 06:42:47 Test Item Value Reference Range Interpretation [...] (test code = 15 U/L 6-55 347) Wrapper Stitcher ID - ZAC WSpecimen slightly ictericPROTHROMBIN TIME/[id number] 05:37:24 Test Item Value Reference Range Interpretation Comments PROTIME (BEAKER) 26.6 seconds 11.9-14.2 H (test code = 759) INR (BEAKER) (test 2.48 See_Comment [Automat ed message] code = 370) The system [employer] generated this result transmitted ref erence [...] CONCENTRATION Decreased (CELLAVISION)(BEAKER) (test code = 3438) Wrapper Stitcher ID - Cindy Gibson comments: Slide comments:CBC W/PLT COUNT & AUTO [id number] 09:40:43 Test Item Value Reference Range Interpretation [...] 0-0 (test code = 413) BASIC METABOLIC [id number] 07:22:45 Test Item Value Reference Range Interpretation [...] S NOT APPLICABLE FOR DIALYSIS PATIEN TS. Wrapper Stitcher ID - PIAYA LSpecimen slightly xpjffysPVOAMEUHMA5595-00-10 07:16:27 Test Item Value Reference Range Interpretation Comments PHOSPHORUS (BEAKER) (test code = 2.2 mg/dL 2.3-4.7 L 604) Wrapper Stitcher ID - PIAYA LHEPATIC FUNCTION [id number] 07:16:27 Test Item Value Reference Range Interpretation [...] (test code = 17 U/L 6-55 347) Wrapper Stitcher ID - MARLON Ferrera slightly ictericBLOOD NYAPBRL6995-07-30 07:00:33 Test Item Value Reference Range Interpretation Comments CULTURE (BEAKER) (test No growth in 5 days code = 1095) PROTHROMBIN TIME/[id number] 06:15:38 Test Item Value Reference Range Interpretation Comments PROTIME (BEAKER) 25.1 seconds 11.9-14.2 H (test code = 759) INR (BEAKER) (test 2.31 See_Comment [Automat ed message] code = 370) The system [employer] generated this result transmitted ref erence range: <=5.90. The reference range was not used to int erpret this result as normal/abnormal . RECOMMENDED COUMADIN/WARFARIN INR THERAPY RANGESSTANDARD DOSE: 2.0 - 3.0 Includes: PROPHYLAXIS for venous thrombosis, systemic embolization; TREATMENT for venous thrombosis and/or pulmonary embolus.HIGH RISK: Target INR is 2.5-3.5 for patients with mechanical heart valves.Ova and Parasite Nwfwajrwael2437-16-83 08:26:13 Test Item Value Reference Range Interpretation Comments O&P Direct Smear (test No ova or parasites No ova or code = 10645-9) seen parasites seen REJI (test code = REJI) See scanned report Lab Interpretation (test Normal code = 33718-0) [facility] Ityqtlwdalu9047-74-00 08:26:13 Test Item Value Reference Range Interpretation Comments O&P Direct Smear (test No ova or parasites No ova or code = 33422-7) seen parasites seen REJI (test code = REJI) See scanned report Lab Interpretation (test Normal code = 08346-7) [facility] Fxcnpvrdwpq3952-50-45 08:26:13 Test Item Value Reference Range Interpretation Comments O&P Direct Smear (test No ova or parasites No ova or code = 43079-5) seen parasites seen REJI (test code = REJI) See scanned report Lab Interpretation (test Normal code = 32107-9) [facility] Qzvecxvvyqb3991-72-59 08:26:13 Test Item Value Reference Range Interpretation Comments O&P Direct Smear (test No ova or parasites No ova or code = 22051-9) seen parasites seen REJI (test code = REJI) See scanned report Lab Interpretation (test Normal code = 48204-8) [facility]2022-01-26 07:29:32 Test Item Value Reference Range Interpretation Comments PHOSPHORUS (BEAKER) (test code = 1.5 mg/dL 2.3-4.7 LL 604) Wrapper Stitcher ID Ajay FRANK WBASIC METABOLIC [id number] 07:09:27 Test Item Value Reference Range Interpretation [...] S NOT APPLICABLE FOR DIALYSIS PATIEN TS. Wrapper Stitcher ID Ajay FRANK WSpecimen slightly ictericPROTHROMBIN TIME/[id number] 06:57:19 Test Item Value Reference Range Interpretation Comments PROTIME (BEAKER) 23.2 seconds 11.9-14.2 H (test code = 759) INR (BEAKER) (test 2.09 See_Comment [Automat ed message] code = 370) The system [employer] generated this result transmitted ref erence [...] CONCENTRATION Decreased (CELLAVISION)(BEAKER) (test code = 3438) Wrapper Stitcher ID - nabil Julian comments: Slide comments:[id number] 15:08:54 Test Item Value Reference Range Interpretation Comments PHOSPHORUS (BEAKER) (test code = 1.2 mg/dL 2.3-4.7 LL 604) Wrapper Stitcher ID - BSBASIC METABOLIC [id number] 15:04:30 Test Item Value Reference Range Interpretation [...] S NOT APPLICABLE FOR DIALYSIS PATIEN TS. Wrapper Stitcher ID - BSSpecimen slightly ictericHEPATIC FUNCTION [id number] 15:02:35 Test Item Value Reference Range Interpretation [...] (test code = 17 U/L 6-55 347) Wrapper Stitcher ID - BSSpecimen slightly ictericPROTHROMBIN TIME/[id number] 14:50:10 Test Item Value Reference Range Interpretation Comments PROTIME (BEAKER) 24.9 seconds 11.9-14.2 H (test code = 759) INR (BEAKER) (test 2.28 See_Comment [Automat ed message] code = 370) The system [employer] generated this result transmitted ref erence range: <=5.90. The reference range was not used to int erpret this result as normal/abnormal . RECOMMENDED COUMADIN/WARFARIN INR THERAPY RANGESSTANDARD DOSE: 2.0 - 3.0 Includes: PROPHYLAXIS for venous thrombosis, systemic embolization; TREATMENT for venous thrombosis and/or pulmonary embolus.HIGH RISK: Target INR is 2.5-3.5 for patients with mechanical heart valves.CBC W/PLT COUNT & AUTO [id number] 14:44:53 Test Item Value Reference Range Interpretation [...] (test code = 413) Clostridium difficile GDH [id number] 21:23:26 Test Item Value Reference Range Interpretation Comments C. Difficle Toxin Positive Negative A (test code = 3549004491) C. Difficile GDH Positive Negative A Confirms Antigen (test code = Clostri dium 2974203885) difficile-assoc ia barron infection.First line therapy - [...] of kit performance was done by the [facility] prior to clinical use. Lab Interpretation Abnormal (test code = 18643-0) [facility] [id number] 21:23:26 Test Item Value Reference Range Interpretation Comments C. Difficle Toxin Positive Negative A (test code = 5967831472) C. Difficile GDH Positive Negative A Confirms Antigen (test code = Clostri dium 5201404681) difficile-assoc ia barron infection.First line therapy - [...] of kit performance was done by the [facility] prior to clinical use. Lab Interpretation Abnormal (test code = 58713-2) [facility] [id number] 21:23:26 Test Item Value Reference Range Interpretation Comments C. Difficle Toxin Positive Negative A (test code = 2337712566) C. Difficile GDH Positive Negative A Confirms Antigen (test code = Clostri dium 4315474593) difficile-assoc ia barron infection.First line therapy - [...] of kit performance was done by the [facility] prior to clinical use. Lab Interpretation Abnormal (test code = 03029-7) [facility] [id number] 21:23:26 Test Item Value Reference Range Interpretation Comments C. Difficle Toxin Positive Negative A (test code = 0950765070) C. Difficile GDH Positive Negative A Confirms Antigen (test code = Clostri dium 9211453998) difficile-assoc ia barron infection.First line therapy - [...] of kit performance was done by the [facility] prior to clinical use. Lab Interpretation Abnormal (test code = 53103-3) [facility] DIFFICILE [facility] [id number] 21:23:26 Test Item Value Reference Range Interpretation Comments CDT TOXIN (test code Positive Negative A = 8337102409) CDT GDH ANTIGEN Positive Negative A Confirms Maria Esther stridium (test code = difficile-assoc iated 5264535693) infection.First line therapy - oral Vancomycin. Con [...] of kit performance was done by the [facility] prior to clinical use.CT, CHEST, WITH [id number] 10:14:00Unlisted Reason for Exam - Click Yes and Enter Reason Below->No [facility] 1960 Sex: [...] Sims MDReport Verified Date/Time: 09/04/2021 10:14:08 CT, [id number] 10:14:00Unlisted Reason for Exam - Click Yes and Enter Reason Below->No Is this for enterography?->YesWill this procedure require oral contrast?->Yes [facility] 1960 Sex: [...] CONCENTRATION Decreased (CELLAVISION)(BEAKER) (test code = 3438) Wrapper Stitcher ID - michaela Cutler comments: Slide comments:CBC W/PLT COUNT & AUTO [id number] 07:25:32 Test Item Value Reference Range Interpretation [...] /100 WBC 0-0 (test code = 413) [id number] 06:26:19 Test Item Value Reference Range Interpretation Comments PHOSPHORUS (BEAKER) (test code = 1.5 mg/dL 2.3-4.7 LL 604) Wrapper Stitcher GINA FRANK WComprehensive metabolic [id number] 06:18:30 Test Item Value Reference Range Interpretation Comments Protein, Total (test 4.7 See_Comment L [Autom ated code = 2885-2) message] The system which generated this result transmitted reference range : 6.0 - 8.3 gm/dL . The reference range was not used to interpr et this result as normal/abnormal . Albumin (test code = 2.7 g/dL 3.5-5.0 L 57757-3) Alkaline Phosphatase 85 U/L 40-150 (test code [...] (test code = 7.3 mg/dL 8.4-10.2 L 78769-6) AST (test code = 28 U/L 5-34 1920-8) ALT (test code = 14 U/L 6-55 1742-6) EGFR (test code = 53 mL/min/1.73 [place] [address]-2) NOT ACCURATE CREATININE CLEARANCE IN PREDICTING GLOMERULAR FILTRATION RATE . ESTIMATED GFR I S NOT APPLICABLE FOR DIALYSIS PATIENTS. REJI (test code = REJI) Wrapper Stitcher ID - ZAC Rosales slightly icteric Lab Interpretation Abnormal (test code = 12611-2) [facility]Comprehen[facility] [id number] 06:18:30 Test Item Value Reference Range Interpretation Comments Protein, Total (test 4.7 See_Comment L [Autom ated code = 2885-2) message] The system which generated this result transmitted reference range : 6.0 - 8.3 gm/dL . The reference range was not used to interpr et this result as normal/abnormal . Albumin (test code = 2.7 g/dL 3.5-5.0 L 57849-0) Alkaline Phosphatase 85 U/L 40-150 (test code [...] (test code = 7.3 mg/dL 8.4-10.2 L 47805-3) AST (test code = 28 U/L 5-34 1920-8) ALT (test code = 14 U/L 6-55 1742-6) EGFR (test code = 53 mL/min/1.[place] [address]-4) NOT ACCURATE CREATININE CLEARANCE IN PREDICTING GLOMERULAR FILTRATION RATE . ESTIMATED GFR I S NOT APPLICABLE FOR DIALYSIS PATIENTS. REJI (test code = REJI) Wrapper Stitcher ID - ZAC Rosales slightly icteric Lab Interpretation Abnormal (test code = 51795-7) [facility] HospitalComprehenve metabolic [id number] 06:18:30 Test Item Value Reference Range Interpretation Comments Protein, Total (test 4.7 See_Comment L [Autom ated code = 2885-2) message] The system which generated this result transmitted reference range : 6.0 - 8.3 gm/dL . The reference range was not used to interpr et this result as normal/abnormal . Albumin (test code = 2.7 g/dL 3.5-5.0 L 83557-4) Alkaline Phosphatase 85 U/L 40-150 (test code [...] (test code = 7.3 mg/dL 8.4-10.2 L 08002-4) AST (test code = 28 U/L 5-34 1920-8) ALT (test code = 14 U/L 6-55 1742-6) EGFR (test code = 53 mL/min/1.[place] [address]-4) NOT ACCURATE CREATININE CLEARANCE IN PREDICTING GLOMERULAR FILTRATION RATE . ESTIMATED GFR I S NOT APPLICABLE FOR DIALYSIS PATIENTS. REJI (test code = REJI) Wrapper Stitcher ID - ZAC WSpecimen slightly icteric Lab Interpretation Abnormal (test code = 63897-2) [facility] HospitalCom[facility] [id number] 06:18:30 Test Item Value Reference Range Interpretation Comments Protein, Total (test 4.7 See_Comment L [Autom ated code = 2885-2) message] The system which generated this result transmitted reference range : 6.0 - 8.3 gm/dL . The reference range was not used to interpr et this result as normal/abnormal . Albumin (test code = 2.7 g/dL 3.5-5.0 L 07767-1) Alkaline Phosphatase 85 U/L 40-150 (test code [...] (test code = 7.3 mg/dL 8.4-10.2 L 22130-1) AST (test code = 28 U/L 5-34 1920-8) ALT (test code = 14 U/L 6-55 1742-6) EGFR (test code = 53 mL/min/1.[place] [address]-7) NOT ACCURATE CREATININE CLEARANCE IN PREDICTING GLOMERULAR FILTRATION RATE . ESTIMATED GFR I S NOT APPLICABLE FOR DIALYSIS PATIENTS. REJI (test code = REJI) Wrapper Stitcher ID - ZAC WSpecimekorin slightly icteric Lab Interpretation Abnormal (test code = 78474-6) [facility] HospitalCOMPREHENSIVE METABOLIC [id number] 06:18:30 Test Item Value Reference Range Interpretation [...] S NOT APPLICABLE FOR DIALYSIS PATIEN TS. Wrapper Stitcher ID - ZAC WSpecimen slightly [id number] 06:13:05 Test Item Value Reference Range Interpretation Comments MAGNESIUM (BEAKER) (test code = 2.3 mg/dL 1.6-2.6 627) Wrapper Stitcher ID Ajay FRANK W(CELLAVISION MANUAL DIFF)2021-09-03 14:33:56 [...] CONCENTRATION Decreased (CELLAVISION)(BEAKER) (test code = 3438) Wrapper Stitcher ID - Claudinekelly CervantesRandy comments: Slide comments:CBC W/PLT COUNT & AUTO [id number] 14:33:55 Test Item Value Reference Range Interpretation [...] (test code = 413) Hepatitis B surface [id number] 13:30:11 Test Item Value Reference Range Interpretation Comments Hep B S Ab (test code <8.0 See_Comment [Auto mated = 09683-9) message] The system which generated this result transmit barron reference range : <8.0 mIU/mL. Th e reference range was not used to interpret this result as normal/abnormal . REJI (test code = REJI) Wrapper Stitcher ID - MARLON L Lab Interpretation Normal (test code = 31216-8) [facility] B surface [id number] 13:30:11 Test Item Value Reference Range Interpretation Comments Hep B S Ab (test code <8.0 See_Comment [Auto mated = 04572-1) message] The system which generated this result transmit barron reference range : <8.0 mIU/mL. Th e reference range was not used to interpret this result as normal/abnormal . REJI (test code = REJI) Wrapper Stitcher ID - MARLON L Lab Interpretation Normal (test code = 71043-0) [facility] B surface [id number] 13:30:11 Test Item Value Reference Range Interpretation Comments Hep B S Ab (test code <8.0 See_Comment [Auto mated = 62782-4) message] The system which generated this result transmit barron reference range : <8.0 mIU/mL. Th e reference range was not used to interpret this result as normal/abnormal . REJI (test code = REJI) Wrapper Stitcher ID - MARLON L Lab Interpretation Normal (test code = 23746-9) [facility] [id number] 13:30:11 Test Item Value Reference Range Interpretation Comments Hep B S Ab (test code <8.0 See_Comment [Auto mated = 99377-0) message] The system which generated this result transmit barron reference range : <8.0 mIU/mL. Th e reference range was not used to interpret this result as normal/abnormal . REJI (test code = REJI) Wrapper Stitcher ID - MARLON L Lab Interpretation Normal (test code = 14755-7) [facility] [id number] 13:30:11 Test Item Value Reference Range Interpretation Comments HEPATITIS B SURFACE ANTIBODY < mIU/mL <8.0 (BEAKER) (test code = 647) Wrapper Stitcher ID - MARLON LHepatitis A antibody, [id number] 13:23:53 Test Item Value Reference Range Interpretation Comments Hep A IgG (test code = Nonreactive Nonreactive 42250-2) REJI (test code = REJI) Wrapper Stitcher ID - PIAYA L Lab Interpretation (test Normal code = 90671-6) [facility] A antibody, [id number] 13:23:53 Test Item Value Reference Range Interpretation Comments Hep A IgG (test code = Nonreactive Nonreactive 47927-3) REJI (test code = REJI) Wrapper Stitcher ID - PIAYA L Lab Interpretation (test Normal code = 41709-9) [facility], [id number] 13:23:53 Test Item Value Reference Range Interpretation Comments Hep A IgG (test code = Nonreactive Nonreactive 05012-4) REJI (test code = REJI) Wrapper Stitcher ID - PIAYA L Lab Interpretation (test Normal code = 60485-2) [facility], [id number] 13:23:53 Test Item Value Reference Range Interpretation Comments Hep A IgG (test code = Nonreactive Nonreactive 26894-4) REJI (test code = REJI) Wrapper Stitcher ID - PIAYA L Lab Interpretation (test Normal code = 55828-9) [facility]TIBODY, [id number] 13:23:53 Test Item Value Reference Range Interpretation Comments HEPATITIS A IGG ANTIBODY (BEAKER) Nonreactive Nonreactive (test code = 2797) Wrapper Stitcher ID - MARLON LHepatitis B core antibody, [id number] 13:23:52 Test Item Value Reference Range Interpretation Comments Hep B Core Total Ab Nonreactive Nonreactive (test code = 06478-3) REJI (test code = REJI) Wrapper Stitcher ID - PIAYA L Lab Interpretation (test Normal code = 47747-2) [facility] [id number] 13:23:52 Test Item Value Reference Range Interpretation Comments Hepatitis C Ab (test Nonreactive Nonreactive code = 94781-2) REJI (test code = REJI) Wrapper Stitcher ID - PIAYA L Lab Interpretation (test Normal code = 28516-3) [facility], [id number] 13:23:52 Test Item Value Reference Range Interpretation Comments Hep B Core Total Ab Nonreactive Nonreactive (test code = 79957-0) REJI (test code = REJI) Wrapper Stitcher ID - PIRADHA L Lab Interpretation (test Normal code = 67386-9) [facility] B core antibody, [id number] 13:23:52 Test Item Value Reference Range Interpretation Comments Hep B Core Total Ab Nonreactive Nonreactive (test code = 83311-2) REJI (test code = REJI) Wrapper Stitcher ID - PIAYA L Lab Interpretation (test Normal code = 88869-9) [facility] B core antibody, [id number] 13:23:52 Test Item Value Reference Range Interpretation Comments Hep B Core Total Ab Nonreactive Nonreactive (test code = 96236-9) REJI (test code = REJI) Wrapper Stitcher ID - PIAYA L Lab Interpretation (test Normal code = 87482-0) [facility] [id number] 13:23:52 Test Item Value Reference Range Interpretation Comments HEPATITIS C ANTIBODY (BEAKER) Nonreactive Nonreactive (test code = 367) Wrapper Stitcher ID Ajay MASON LHEPATITIS B CORE ANTIBODY, [id number] 13:23:52 Test Item Value Reference Range Interpretation Comments HEPATITIS B CORE TOTAL ANTIBODY Nonreactive Nonreactive (BEAKER) (test code = 497) Wrapper Stitcher ID - MARLON LHepatitis B surface [id number] 13:23:51 Test Item Value Reference Range Interpretation Comments HBsAg Screen (test code Nonreactive Nonreactive = 5195-3) REJI (test code = REJI) Specimen is considered negative for HBsAg. Lab Interpretation (test Normal code = 66712-7) [facility] B SURFACE [id number] 13:23:51 Test Item Value Reference Range Interpretation [...] S NOT APPLICABLE FOR DIALYSIS PATIEN TS. Wrapper Stitcher ID - MARLON LSpecimen slightly eewezmsXYPDTANMX3246-71-78 12:58:51 Test Item Value Reference Range Interpretation Comments MAGNESIUM (BEAKER) (test code = 2.1 mg/dL 1.6-2.6 627) Wrapper Stitcher ID - MARLON FRGWNMDEVQN9645-04-08 12:58:51 Test Item Value Reference Range Interpretation Comments PHOSPHORUS (BEAKER) (test code = 2.3 mg/dL 2.3-4.7 604) Wrapper Stitcher ID - MARLON LPROTHROMBIN TIME/[id number] 12:56:09 Test Item Value Reference Range Interpretation Comments PROTIME (BEAKER) 23.4 seconds 11.9-14.2 H (test code = 759) INR (BEAKER) (test 2.10 See_Comment [Automat ed message] code = 370) The system [employer] generated this result transmitted ref erence range: <=5.90. The reference range was not used to int erpret this result as normal/abnormal . RECOMMENDED COUMADIN/WARFARIN INR THERAPY RANGESSTANDARD DOSE: 2.0 - 3.0 Includes: PROPHYLAXIS for venous thrombosis, systemic embolization; TREATMENT for venous thrombosis and/or pulmonary embolus.HIGH RISK: Target INR is 2.5-3.5 for patients with mechanical heart valves.Urine [id number] 12:15:06 Test Item Value Reference Range Interpretation Comments Result (test code = 6463-4) No growth [facility] HospitalU[facility] [id number] 12:15:06 Test Item Value Reference Range Interpretation Comments Result (test code = 6463-4) No growth [facility] HospitalU[facility] [id number] 12:15:06 Test Item Value Reference Range Interpretation Comments Result (test code = 6463-4) No growth [facility] HospitalU[facility] [id number] 12:15:06 Test Item Value Reference Range Interpretation Comments Result (test code = 6463-4) No growth [facility] Pathogen Profile by PCR -ID [id number] 12:43:22 Test Item Value Reference Range Interpretation Comments CAMPYLOBACTER (PCR) Not detected Not detected (test code = 40070-0) PLESIOMONAS SHIGELLOIDES Not detected Not detected (PCR) (test code = 80081-0) SALMONELLA (PCR) (test Not detected Not detected code = 21250-4) YERSINIA ENTEROCOLITICA Not detected Not detected (PCR) (test code = 26924-4) VIBRIO CHOLERAE (PCR) Not detected Not detected (test code = 69365-6) ENTEROAGGREGATIVE E. Not detected Not detected COLI (EAEC) BY PCR (test code = 77816-2) ENTEROPATHOGENIC E. COLI Not detected Not detected (EPEC) BY PCR (test code = 16988-9) ENTEROTOXIGENIC E. COLI Not detected Not detected (ETEC) LT/ST BY PCR (test code = 57669-3) SHIGA-LIKE Not detected Not detected TOXIN-PRODUCING E. COLI (STEC) STX1/STX2 (test code = 66566-0) E. COLI O157 (PCR) (test code = 61923-2) SHIGELLA/ENTEROINVASIVE Not detected Not detected E. COLI (EIEC) BY PCR (test code = 83126-0) CRYPTOSPORIDIUM (PCR) Not detected Not detected (test code = 37569-3) CYCLOSPORA CAYETANENSIS Not detected Not detected (PCR) (test code = 34499-0) ENTAMOEBA HISTOLYTICA Not detected Not detected (PCR) (test code = 91430-3) GIARDIA LAMBLIA (PCR) Not detected Not detected (test code = 28266-3) ADENOVIRUS F 40/41 (PCR) Not detected Not detected (test code = 98917-4) ASTROVIRUS (PCR) (test Not detected Not detected code = 54280-0) NOROVIRUS GI/GII (PCR) Not detected Not detected (test code = 51142-4) ROTAVIRUS A (PCR) (test Not detected Not detected code = 62924-3) SAPOVIRUS (I, II, IV, V) Not detected Not detected BY PCR (test code = 19850-5) VIBRIO Not detected Not detected (PARAHAEMOLYTICUS, VULNIFICUS) (test code = 19838-7) REJI (test code = REJI) Other viruses, parasites and bacteria not targeted by this PCR panel cannot be excluded; therefore clinical correlation and follow up of serology, culture results, and other molecular studies is required. The results are not intended to be used as the sole means for clinical diagnosis or patient management decisions. This sample was tested at the [facility] Diagnostics Laboratory using the [employer] Gastrointestinal Panel. It is FDA cleared and has been verified and approved by the [facility] Diagnostics [facility] for clinical use. This laboratory is CLIA-certified and [employer] ([employer])-accredited to perform high complexity testing. [facility] Profile by PCR -ID [id number] 12:43:22 Test Item Value Reference Range Interpretation Comments CAMPYLOBACTER PCR (test Not detected Not detected code = 35058-8) PLESIOMONAS SHIGELLOIDES Not detected Not detected (PCR) (test code = 06087-0) SALMONELLA (PCR) (test Not detected Not detected code = 50971-7) YERSINIA ENTEROCOLITICA Not detected Not detected (PCR) (test code = 05114-8) VIBRIO CHOLERAE (PCR) Not detected Not detected (test code = 61269-9) ENTEROAGGREGATIVE E. Not detected Not detected COLI (EAEC) BY PCR (test code = 36954-9) ENTEROPATHOGENIC E. COLI Not detected Not detected (EPEC) BY PCR (test code = 39568-6) ENTEROTOXIGENIC E. COLI Not detected Not detected (ETEC) LT/ST BY PCR (test code = 58677-7) SHIGA-LIKE Not detected Not detected TOXIN-PRODUCING E. COLI (STEC) STX1/STX2 (test code = 08610-8) E. COLI O157 (PCR) (test code = 59987-4) SHIGELLA/ENTEROINVASIVE Not detected Not detected E. COLI (EIEC) BY PCR (test code = 63395-7) CRYPTOSPORIDIUM (PCR) Not detected Not detected (test code = 60326-5) CYCLOSPORA CAYETANENSIS Not detected Not detected (PCR) (test code = 71584-3) ENTAMOEBA HISTOLYTICA Not detected Not detected (PCR) (test code = 00337-5) GIARDIA LAMBLIA (PCR) Not detected Not detected (test code = 36818-6) ADENOVIRUS F 40/41 (PCR) Not detected Not detected (test code = 01241-9) ASTROVIRUS (PCR) (test Not detected Not detected code = 98649-7) NOROVIRUS GI/GII (PCR) Not detected Not detected (test code = 53157-8) ROTAVIRUS A (PCR) (test Not detected Not detected code = 11268-3) SAPOVIRUS (I, II, IV, V) Not detected Not detected BY PCR (test code = 82604-5) VIBRIO Not detected Not detected (PARAHAEMOLYTICUS, VULNIFICUS) (test code = 22792-8) REJI (test code = REJI) Other viruses, parasites and bacteria not targeted by this PCR panel cannot be excluded; therefore clinical correlation and follow up of serology, culture results, and other molecular studies is required. The results are not intended to be used as the sole means for clinical diagnosis or patient management decisions. This sample was tested at the [facility] Molecular Diagnostics Laboratory using the [employer] Gastrointestinal Panel. It is FDA cleared and has been verified and approved by the [facility] Molecular Diagnostics Laboratory for clinical use. This laboratory is CLIA-certified and [employer] ([employer])-accredited to perform high complexity testing. [facility] by PCR -ID [id number] 12:43:22 Test Item Value Reference Range Interpretation Comments CAMPYLOBACTER PCR (test Not detected Not detected code = 50401-3) PLESIOMONAS SHIGELLOIDES Not detected Not detected (PCR) (test code = 31132-7) SALMONELLA (PCR) (test Not detected Not detected code = 47057-9) YERSINIA ENTEROCOLITICA Not detected Not detected (PCR) (test code = 29180-1) VIBRIO CHOLERAE (PCR) Not detected Not detected (test code = 29167-1) ENTEROAGGREGATIVE E. Not detected Not detected COLI (EAEC) BY PCR (test code = 09818-9) ENTEROPATHOGENIC E. COLI Not detected Not detected (EPEC) BY PCR (test code = 71876-4) ENTEROTOXIGENIC E. COLI Not detected Not detected (ETEC) LT/ST BY PCR (test code = 84117-7) SHIGA-LIKE Not detected Not detected TOXIN-PRODUCING E. COLI (STEC) STX1/STX2 (test code = 14810-4) E. COLI O157 (PCR) (test code = 58324-6) SHIGELLA/ENTEROINVASIVE Not detected Not detected E. COLI (EIEC) BY PCR (test code = 30580-2) CRYPTOSPORIDIUM (PCR) Not detected Not detected (test code = 71309-9) CYCLOSPORA CAYETANENSIS Not detected Not detected (PCR) (test code = 65507-3) ENTAMOEBA HISTOLYTICA Not detected Not detected (PCR) (test code = 40840-1) GIARDIA LAMBLIA (PCR) Not detected Not detected (test code = 86512-8) ADENOVIRUS F 40/41 (PCR) Not detected Not detected (test code = 76696-5) ASTROVIRUS (PCR) (test Not detected Not detected code = 95744-0) NOROVIRUS GI/GII (PCR) Not detected Not detected (test code = 56291-4) ROTAVIRUS A (PCR) (test Not detected Not detected code = 69165-7) SAPOVIRUS (I, II, IV, V) Not detected Not detected BY PCR (test code = 55064-3) VIBRIO Not detected Not detected (PARAHAEMOLYTICUS, VULNIFICUS) (test code = 10241-5) REJI (test code = REJI) Other viruses, parasites and bacteria not targeted by this PCR panel cannot be excluded; therefore clinical correlation and follow up of serology, culture results, and other molecular studies is required. The results are not intended to be used as the sole means for clinical diagnosis or patient management decisions. This sample was tested at the [facility] Molecular Diagnostics Laboratory using the [employer] Gastrointestinal Panel. It is FDA cleared and has been verified and approved by the [facility] Molecular Diagnostics Laboratory for clinical use. This laboratory is CLIA-certified and [employer] (CAP)-accredited to perform high complexity testing. [facility] by [facility] -ID [id number] 12:43:22 Test Item Value Reference Range Interpretation Comments CAMPYLOBACTER PCR (test Not detected Not detected code = 99851-5) PLESIOMONAS SHIGELLOIDES Not detected Not detected (PCR) (test code = 49334-2) SALMONELLA (PCR) (test Not detected Not detected code = 82627-6) YERSINIA ENTEROCOLITICA Not detected Not detected (PCR) (test code = 81469-5) VIBRIO CHOLERAE (PCR) Not detected Not detected (test code = 58838-3) ENTEROAGGREGATIVE E. Not detected Not detected COLI (EAEC) BY PCR (test code = 66385-4) ENTEROPATHOGENIC E. COLI Not detected Not detected (EPEC) BY PCR (test code = 17426-9) ENTEROTOXIGENIC E. COLI Not detected Not detected (ETEC) LT/ST BY PCR (test code = 01275-2) SHIGA-LIKE Not detected Not detected TOXIN-PRODUCING E. COLI (STEC) STX1/STX2 (test code = 12834-9) E. COLI O157 (PCR) (test code = 81364-6) SHIGELLA/ENTEROINVASIVE Not detected Not detected E. COLI (EIEC) BY PCR (test code = 59608-5) CRYPTOSPORIDIUM (PCR) Not detected Not detected (test code = 03150-8) CYCLOSPORA CAYETANENSIS Not detected Not detected (PCR) (test code = 36894-3) ENTAMOEBA HISTOLYTICA Not detected Not detected (PCR) (test code = 57405-7) GIARDIA LAMBLIA (PCR) Not detected Not detected (test code = 96024-2) ADENOVIRUS F 40/41 (PCR) Not detected Not detected (test code = 48346-9) ASTROVIRUS (PCR) (test Not detected Not detected code = 95398-5) NOROVIRUS GI/GII (PCR) Not detected Not detected (test code = 48361-6) ROTAVIRUS A (PCR) (test Not detected Not detected code = 61449-7) SAPOVIRUS (I, II, IV, V) Not detected Not detected BY PCR (test code = 73451-7) VIBRIO Not detected Not detected (PARAHAEMOLYTICUS, VULNIFICUS) (test code = 78627-7) REJI (test code = REJI) Other viruses, parasites and bacteria not targeted by this PCR panel cannot be excluded; therefore clinical correlation and follow up of serology, culture results, and other molecular studies is required. The results are not intended to be used as the sole means for clinical diagnosis or patient management decisions. This sample was tested at the [facility] Molecular Diagnostics Laboratory using the [employer] Gastrointestinal Panel. It is FDA cleared and has been verified and approved by the [facility] Molecular Diagnostics Laboratory for clinical use. This laboratory is CLIA-certified and [employer] (CAP)-accredited to perform high complexity testing. [facility]FILE BY [id number] 12:43:22 Test Item Value Reference Range Interpretation Comments CAMPYLOBACTER (PCR) (test code = Not detected Not detected 20160214) PLESIOMONAS SHIGELLOIDES (PCR) Not detected Not detected (test code = 20160218) SALMONELLA (PCR) (test code = Not detected Not detected ) YERSINIA ENTEROCOLITICA (PCR) Not detected Not detected (test code = 5346422) VIBRIO CHOLERAE (PCR) (test code Not detected Not detected = 2848890) ENTEROAGGREGATIVE E. COLI (EAEC) Not detected Not detected BY PCR (test code = 1432951) ENTEROPATHOGENIC E. COLI (EPEC) Not detected Not detected BY PCR (test code = 5998595) ENTEROTOXIGENIC E. COLI (ETEC) Not detected Not detected LT/ST BY PCR (test code = 8481354) SHIGA-LIKE TOXIN-PRODUCING E. Not detected Not detected COLI (STEC) STX1/STX2 (test code = 2431198) E. COLI O157 (PCR) (test code = 0203444) SHIGELLA/ENTEROINVASIVE E. COLI Not detected Not detected (EIEC) BY PCR (test code = 20160319) CRYPTOSPORIDIUM (PCR) (test code Not detected Not detected = 20160320) CYCLOSPORA CAYETANENSIS (PCR) Not detected Not detected (test code = 6960074) ENTAMOEBA HISTOLYTICA (PCR) Not detected Not detected (test code = 6219902) GIARDIA LAMBLIA (PCR) (test code Not detected Not detected = 20160413) ADENOVIRUS F 40/41 (PCR) (test Not detected Not detected code = 9058588) ASTROVIRUS (PCR) (test code = Not detected Not detected 20160415) NOROVIRUS GI/GII (PCR) (test Not detected Not detected code = 20160416) ROTAVIRUS A (PCR) (test code = Not detected Not detected 20160417) SAPOVIRUS (I, II, IV, V) BY PCR Not detected Not detected (test code = 7302444) VIBRIO (PARAHAEMOLYTICUS, Not detected Not detected VULNIFICUS) [...] decisions. This sample was tested at the [facility] Molecular Diagnostics Laboratory using the [employer] Gastrointestinal Panel. It is FDA cleared and has been verified and approved by the [facility] Molecular Diagnostics Laboratory for clinical use. This [...] CONCENTRATION Decreased (CELLAVISION)(BEAKER) (test code = 3438) Wrapper Stitcher ID - Phyllis comments: Slide comments:CBC W/PLT COUNT & AUTO [id number] 08:49:57 Test Item Value Reference Range Interpretation [...] (test code = 413) Vitamin B12 and [id number] 07:20:11 Test Item Value Reference Range Interpretation Comments Vitamin B12 (test 1116 pg/mL 213-816 H code = 2132-9) Folate (test code = 3.50 ng/mL See_Comment L [Automa barron 2284-8) message] The system which generated this result transmit barron reference range : >=7.00. The reference range was not used to interpret this result as normal/abnormal . REJI (test code = REJI) Wrapper Stitcher ID - SHAQUILLE Reynolds Lab Interpretation Abnormal (test code = 19246-1) [facility] Hospital[facility]12 and [id number] 07:20:11 Test Item Value Reference Range Interpretation Comments Vitamin B12 (test 1116 pg/mL 213-816 H code = 2132-9) Folate (test code = 3.50 ng/mL See_Comment L [Automa barron 2284-8) message] The system which generated this result transmit barron reference range : >=7.00. The reference range was not used to interpret this result as normal/abnormal . REJI (test code = REJI) Wrapper Stitcher ID - SHAQUILLE M Lab Interpretation Abnormal (test code = 95004-1) [facility] HospitalVitamin B12 and [id number] 07:20:11 Test Item Value Reference Range Interpretation Comments Vitamin B12 (test 1116 pg/mL 213-816 H code = 2132-9) Folate (test code = 3.50 ng/mL See_Comment L [Automa barron 2284-8) message] The system which generated this result transmit barron reference range : >=7.00. The reference range was not used to interpret this result as normal/abnormal . REJI (test code = REJI) Wrapper Stitcher ID - SHAQUILLE M Lab Interpretation Abnormal (test code = 17375-0) [facility] HospitalV[facility] B12 and [id number] 07:20:11 Test Item Value Reference Range Interpretation Comments Vitamin B12 (test 1116 pg/mL 213-816 H code = 2132-9) Folate (test code = 3.50 ng/mL See_Comment L [Automa barron 2284-8) message] The system which generated this result transmit barron reference range : >=7.00. The reference range was not used to interpret this result as normal/abnormal . REJI (test code = REJI) Wrapper Stitcher ID - SHAQUILLE Reynolds Lab Interpretation Abnormal (test code = 27247-8) [facility] HospitalVITAMIN B12 AND [id number] 07:20:11 Test Item Value Reference Range Interpretation Comments VITAMIN B12 (BEAKER) 1116 pg/mL 213-816 H (test code = 774) FOLATE (BEAKER) 3.50 ng/mL See_Comment L [Automated message] (test code = 362) The system which generated this result transmitted ref erence range: >=7.00. The reference range was not used to interpr et this result as normal/abnormal . Wrapper Stitcher ID - SHAQUILLE OMPREHENSIVE METABOLIC [id number] 06:57:06 Test Item Value Reference Range Interpretation [...] S NOT APPLICABLE FOR DIALYSIS PATIEN TS. Wrapper Stitcher ID - SHAQUILLE MSpecimen slightly ictericC-Reactive [id number] 06:55:26 Test Item Value Reference Range Interpretation Comments CRP (test code = 676) 4.64 mg/dL 0.00-0.50 H REJI (test code = REJI) Wrapper Stitcher ID Ajay CORBIN M Lab Interpretation (test Abnormal code = 75206-4) [facility] HospitalPHOSPHORUS2022-01-22 06:55:26 Test Item Value Reference Range Interpretation Comments PHOSPHORUS (BEAKER) (test code = 1.8 mg/dL 2.3-4.7 L 604) Wrapper Stitcher ID - SHAQUILLE MC-REACTIVE [id number] 06:55:26 Test Item Value Reference Range Interpretation Comments C-REACTIVE PROTEIN (BEAKER) (test 4.64 mg/dL 0.00-0.50 H code = 676) Wrapper Stitcher ID - SHAQUILLE [id number] 06:55:25 Test Item Value Reference Range Interpretation Comments MAGNESIUM (BEAKER) (test code = 2.3 mg/dL 1.6-2.6 627) Wrapper Stitcher ID Ajay CORBIN Corina, TIBC, % sat. (without ferritin)2021-09-02 06:44:00 Test Item Value Reference Range Interpretation Comments Iron (test code = 2498-4) 28.0 ug/dL 40.0-160.0 L TIBC (test code = 2500-7) 243 ug/dL 250-450 L Iron % Saturation (test 12 % 20-55 L code = 2502-3) REJI (test code = REJI) Wrapper Stitcher ID Ajay CORBIN M Lab Interpretation (test Abnormal code = 58554-9) [facility] HospitalIron, TIBC, % sat. (without ferritin)2021-09-02 06:44:00 Test Item Value Reference Range Interpretation Comments Iron (test code = 2498-4) 28.0 ug/dL 40.0-160.0 L TIBC (test code = 2500-7) 243 ug/dL 250-450 L Iron % Saturation (test 12 % 20-55 L code = 2502-3) REJI (test code = REJI) Wrapper Stitcher ID - SHAQUILLE Reynolds Lab Interpretation (test Abnormal code = 94923-0) [facility] HospitalIro, TIBC, % sat. (without ferritin)2021-09-02 06:44:00 Test Item Value Reference Range Interpretation Comments Iron (test code = 2498-4) 28.0 ug/dL 40.0-160.0 L TIBC (test code = 2500-7) 243 ug/dL 250-450 L Iron % Saturation (test 12 % 20-55 L code = 2502-3) REJI (test code = REJI) Wrapper Stitcher ID - SHAQUILLE Reynolds Lab Interpretation (test Abnormal code = 61156-3) [facility] HospitalIro, TIBC, % sat. (without ferritin)2021-09-02 06:44:00 Test Item Value Reference Range Interpretation Comments Iron (test code = 2498-4) 28.0 ug/dL 40.0-160.0 L TIBC (test code = 2500-7) 243 ug/dL 250-450 L Iron % Saturation (test 12 % 20-55 L code = 2502-3) REJI (test code = REJI) Wrapper Stitcher ID - SHAQUILLE Reynolds Lab Interpretation (test Abnormal code = 06997-1) [facility] HospitalIRO, TIBC, % SAT. (WITHOUT FERRITIN)2021-09-02 06:44:00 Test Item Value Reference Range Interpretation Comments IRON (BEAKER) (test code = 547) 28.0 ug/dL 40.0-160.0 L TOTAL IRON BINDING CAPACITY 243 ug/dL 250-450 L (BEAKER) (test code = 769) IRON % SATURATION (2) (BEAKER) 12 % 20-55 L (test code = 2590) Wrapper Stitcher ID - SHAQUILLE CUELLO, BRAIN, WITHOUT [id number] 03:54:00Unlisted Reason for Exam - Click Yes and Enter Reason Below->No [facility] 1960 Sex: FFINAL [...] recommended for further characterization. Signed: [facility] Verified Date/Time: 09/02/2021 03:54:37 U/S, ABDOMINAL, [id number] 03:38:00 Abdomen limited area? Add comment if clarification is needed.->Right upper quadrantReason for exam:->evaluate biliary tree/liver [facility] : 1960 Sex: FFINAL [...] setting of hepatic steatosis. Signed: [facility] Verified Date/Time: 09/02/2021 03:38:29 Urinalysis w/Microscopic + Reflex to [id number] 02:29:12 Test Item Value Reference Range Interpretation Comments Color, UA (test code Brown = 5778-6) Clarity, UA (test Hazy code = 5767-9) Specific [place], UA 1.029 1.001-1.035 (test code = 5811-5) pH, UA (test code = 6.0 5.0-8.0 5803-2) Protein, UA (test 30 mg/dL Negative A code = 45255-5) Glucose, UA (test Negative Negative code = 365) Ketones, UA (test Negative Negative code = 2514-8) Bilirubin, UA (test Negative Negative code = 99600-9) Blood, UA (test code Small Negative A = 19239-1) Nitrite, UA (test Negative Negative code = 5802-4) Leukocytes, UA (test Moderate Negative A code = 5799-2) Urobilinogen, UA 0.2 mg/dL 0.2-1.0 (test code = 04569-3) RBC, UA (test code = 18 See_Comment [Autom ated 88486-8) message] The system which generated this result [...] . Bacteria, UA (test Rare code = 44008-7) Mucus (test code = Moderate 8247-9) Squam Epithel, UA 2 See_Comment [Automate d (test code = 88896-0) messag e] The system which generated this result transmit barron reference range : /HPF. The reference range was not used to interpret this result as normal/abnormal . Hyaline Casts, UA 3 See_Comment [Automate d (test code = 14120-0) messag e] The system which generated this result transmit barron reference range : /LPF. The reference range was not used to interpret this result as normal/abnormal . Crystals, Urine (test None Seen code = 06914-2) Amorphous Crystals Rare (test code = 56994-3) Specimen Source (test code = 2795) REJI (test code = REJI) Wrapper Stitcher ID - [auto]Wrapper Stitcher ID - tech Lab Interpretation Abnormal (test code = 46529-3) [facility] HospitalUrinalysis w/Microscopic + Reflex to Culture 2021-09-02 02:29:12 Test Item Value Reference Range Interpretation Comments Color, UA (test code Brown = 5778-6) Clarity, UA (test Hazy code = 5767-9) Specific [place], UA 1.029 1.001-1.035 (test code = 5811-5) pH, UA (test code = 6.0 5.0-8.0 5803-2) Protein, UA (test 30 mg/dL Negative A code = 32106-4) Glucose, UA (test Negative Negative code = 365) Ketones, UA (test Negative Negative code = 2514-8) Bilirubin, UA (test Negative Negative code = 49617-9) Blood, UA (test code Small Negative A = 70965-8) Nitrite, UA (test Negative Negative code = 5802-4) Leukocytes, UA (test Moderate Negative A code = 5799-2) Urobilinogen, UA 0.2 mg/dL 0.2-1.0 (test code = 00249-0) RBC, UA (test code = 18 See_Comment [Autom ated 34336-1) message] The system which generated this result [...] . Bacteria, UA (test Rare code = 72901-5) Mucus (test code = Moderate 8247-9) Squam Epithel, UA 2 See_Comment [Automate d (test code = 90173-0) messag e] The system which generated this result transmit barron reference range : /HPF. The reference range was not used to interpret this result as normal/abnormal . Hyaline Casts, UA 3 See_Comment [Automate d (test code = 40735-6) messag e] The system which generated this result transmit barron reference range : /LPF. The reference range was not used to interpret this result as normal/abnormal . Crystals, Urine (test None Seen code = 93766-0) Amorphous Crystals Rare (test code = 10399-1) Specimen Source (test code = 2795) REJI (test code = REJI) Wrapper Stitcher ID - [auto]Wrapper Stitcher ID - tech Lab Interpretation Abnormal (test code = 05239-4) [facility] HospitalUrinalysis w/Microscopic + Reflex to Culture 2021-09-02 02:29:12 Test Item Value Reference Range Interpretation Comments Color, UA (test code Brown = 5778-6) Clarity, UA (test Hazy code = 5767-9) Specific [place], UA 1.029 1.001-1.035 (test code = 5811-5) pH, UA (test code = 6.0 5.0-8.0 5803-2) Protein, UA (test 30 mg/dL Negative A code = 87041-4) Glucose, UA (test Negative Negative code = 365) Ketones, UA (test Negative Negative code = 2514-8) Bilirubin, UA (test Negative Negative code = 17206-5) Blood, UA (test code Small Negative A = 25487-8) Nitrite, UA (test Negative Negative code = 5802-4) Leukocytes, UA (test Moderate Negative A code = 5799-2) Urobilinogen, UA 0.2 mg/dL 0.2-1.0 (test code = 40944-2) RBC, UA (test code = 18 See_Comment [Autom ated 81689-0) message] The system which generated this result [...] . Bacteria, UA (test Rare code = 66531-6) Mucus (test code = Moderate 8247-9) Squam Epithel, UA 2 See_Comment [Automate d (test code = 49457-5) messag e] The system which generated this result transmit barron reference range : /HPF. The reference range was not used to interpret this result as normal/abnormal . Hyaline Casts, UA 3 See_Comment [Automate d (test code = 78868-7) messag e] The system which generated this result transmit barron reference range : /LPF. The reference range was not used to interpret this result as normal/abnormal . Crystals, Urine (test None Seen code = 70892-2) Amorphous Crystals Rare (test code = 79299-5) Specimen Source (test code = 2795) REJI (test code = REJI) Wrapper Stitcher ID - [auto]Wrapper Stitcher ID - tech Lab Interpretation Abnormal (test code = 78743-5) [facility] Hospital[facility] w/Microscopic + Reflex to Culture 2021-09-02 02:29:12 Test Item Value Reference Range Interpretation Comments Color, UA (test code Brown = 5778-6) Clarity, UA (test Hazy code = 5767-9) Specific [place], UA 1.029 1.001-1.035 (test code = 5811-5) pH, UA (test code = 6.0 5.0-8.0 5803-2) Protein, UA (test 30 mg/dL Negative A code = 56097-2) Glucose, UA (test Negative Negative code = 365) Ketones, UA (test Negative Negative code = 2514-8) Bilirubin, UA (test Negative Negative code = 79344-8) Blood, UA (test code Small Negative A = 65995-9) Nitrite, UA (test Negative Negative code = 5802-4) Leukocytes, UA (test Moderate Negative A code = 5799-2) Urobilinogen, UA 0.2 mg/dL 0.2-1.0 (test code = 84188-8) RBC, UA (test code = 18 See_Comment [Autom ated 13497-0) message] The system which generated this result [...] . Bacteria, UA (test Rare code = 71974-7) Mucus (test code = Moderate 8247-9) Squam Epithel, UA 2 See_Comment [Automate d (test code = 62557-3) messag e] The system which generated this result transmit barron reference range : /HPF. The reference range was not used to interpret this result as normal/abnormal . Hyaline Casts, UA 3 See_Comment [Automate d (test code = 44755-2) messag e] The system which generated this result transmit barron reference range : /LPF. The reference range was not used to interpret this result as normal/abnormal . Crystals, Urine (test None Seen code = 54776-9) Amorphous Crystals Rare (test code = 96738-7) Specimen Source (test code = 2795) REJI (test code = REJI) Wrapper Stitcher ID - [auto]Wrapper Stitcher ID - tech Lab Interpretation Abnormal (test code = 24294-2) [facility]/ REFLEX URINE [id number] 02:29:12 Test Item Value Reference Range Interpretation [...] = 1584) SOURCE(BEAKER) (test code = 2795) Wrapper Stitcher ID - [auto]Wrapper Stitcher ID - techRAD, CHEST, 1 VIEW, NON [id number] 01:45:00Reason for exam:->leukocytosis, unable to provide historyShould this be performed at the bedside?->Yes [facility] 1960 Sex: [...] 09/02/2021 01:45:23 CBC W/PLT COUNT & AUTO [id number] 00:20:23 Test Item Value Reference Range Interpretation [...] CONCENTRATION Decreased (CELLAVISION)(BEAKER) (test code = 3438) Wrapper Stitcher ID - Curtis Grullon comments: Slide comments:PT/[id number] 23:44:49 Test Item Value Reference Interpretation Comments [...] PTT (test code = 35.2 See_Comment [Automated 09198-9) message] The system which generated this result [...] valves. Lab Interpretation Abnormal (test code = 54295-5) [facility] HospitalPT/[id number] 23:44:49 Test Item Value Reference Interpretation Comments [...] PTT (test code = 35.2 See_Comment [Automated 22219-3) message] The system which generated this result [...] valves. Lab Interpretation Abnormal (test code = 77825-3) [facility] HospitalPT/[id number] 23:44:49 Test Item Value Reference Interpretation Comments [...] PTT (test code = 35.2 See_Comment [Automated 24503-9) message] The system which generated this result [...] valves. Lab Interpretation Abnormal (test code = 29326-9) [facility] HospitalPT/[id number] 23:44:49 Test Item Value Reference Interpretation Comments [...] PTT (test code = 35.2 See_Comment [Automated 53066-5) message] The system which generated this result [...] valves. Lab Interpretation Abnormal (test code = 88430-4) [facility] HospitalPT/[id number] 23:44:49 Test Item Value Reference Range Interpretation [...] for patients with mechanical heart valves.BASIC METABOLIC [id number] 23:31:12 Test Item Value Reference Range Interpretation [...] S NOT APPLICABLE FOR DIALYSIS PATIEN TS. Wrapper Stitcher ID - DBSpecimen slightly ttkhdovZTBCJGJAA8362-85-29 23:19:46 Test Item Value Reference Range Interpretation Comments MAGNESIUM (BEAKER) (test code = 1.8 mg/dL 1.6-2.6 627) Wrapper Stitcher ID - BZUFDSTDZOPF9069-62-03 23:19:46 Test Item Value Reference Range Interpretation Comments PHOSPHORUS (BEAKER) (test code = 1.9 mg/dL 2.3-4.7 L 604) Wrapper Stitcher ID - DBHEPATIC FUNCTION [id number] 23:19:46 Test Item Value Reference Range Interpretation [...] (test code = 14 U/L 6-55 347) Wrapper Stitcher ID - DBSpecimen slightly ictericLactic acid, [id number] 23:13:03 Test Item Value Reference Range Interpretation Comments Lactate, Venous (test 2.88 mmol/L 0.50-2.20 H code = 2872) REJI (test code = REJI) Wrapper Stitcher ID - DBSpecimen slightly icteric Lab Interpretation (test Abnormal code = 68037-6) [facility] HospitalLactic acid, [id number] 23:13:03 Test Item Value Reference Range Interpretation Comments Lactate, Venous (test 2.88 mmol/L 0.50-2.20 H code = 2872) REJI (test code = REJI) Wrapper Stitcher ID - DBSpecimen slightly icteric Lab Interpretation (test Abnormal code = 57039-3) [facility] HospitalLactic acid, [id number] 23:13:03 Test Item Value Reference Range Interpretation Comments Lactate, Venous (test 2.88 mmol/L 0.50-2.20 H code = 2872) REJI (test code = REJI) Wrapper Stitcher ID - DBSpecimen slightly icteric Lab Interpretation (test Abnormal code = 13709-1) [facility] HospitalLactic acid, [id number] 23:13:03 Test Item Value Reference Range Interpretation Comments Lactate, Venous (test 2.88 mmol/L 0.50-2.20 H code = 2872) REJI (test code = REJI) Wrapper Stitcher ID - DBSpecimen slightly icteric Lab Interpretation (test Abnormal code = 09703-0) [facility] HospitalLACTIC ACID, [id number] 23:13:03 Test Item Value Reference Range Interpretation Comments LACTATE BLOOD VENOUS (2) (BEAKER) 2.88 mmol/L 0.50-2.20 H (test code = 2872) Wrapper Stitcher ID - DBSpecimen slightly ictericPOC-Glucose [id number] 22:47:30 Test Item Value Reference Range Interpretation Comments POC-Glucose Meter (test 106 mg/dL 70-110 : TE STED AT [facility] code = 1538) [address] [place] [address], [facility] 30: Wrapper Stitcher/Techni sowmya ID = [id number] for ULLATTIL, TAYA K Lab Interpretation (test Normal code = 78033-3) [facility] HospitalPOC-Glucose [id number] 22:47:30 Test Item Value Reference Range Interpretation Comments POC-Glucose Meter (test 106 mg/dL 70-110 : TE STED AT [facility] code = 1538) [address] [place] [address], [facility] 30: Wrapper Stitcher/Techni sowmya ID = [id number] for ULLATTIL, TAYA K Lab Interpretation (test Normal code = 78406-8) [facility] HospitalP[facility]-Glucose [id number] 22:47:30 Test Item Value Reference Range Interpretation Comments POC-Glucose Meter (test 106 mg/dL 70-110 : TE STED AT [facility] code = 1538) [address] [place] [address], [facility] 30: Wrapper Stitcher/Techni sowmya ID = [id number] for ULLATTIL, TAYA K Lab Interpretation (test Normal code = 23045-6) [facility] HospitalPOC-Glucose [id number] 22:47:30 Test Item Value Reference Range Interpretation Comments POC-Glucose Meter (test 106 mg/dL 70-110 : TE STED AT [facility] code = 1538) [address] [place] [address], 770 30: Wrapper Stitcher/Techni sowmya ID = [id number] for TAYA TO K Lab Interpretation (test Normal code = 73909-9) [facility] HospitalPOCT-GLUCOSE [id number] 22:47:30 Test Item Value Reference Range Interpretation Comments POC-GLUCOSE METER 106 mg/dL 70-110 : TESTED A T [facility] 6720 (BEAKER) (test code = [facility] [place], 1538) [address]: Wrapper Stitcher/Techni sowmya ID = [id number] for WALE FITZPATRICK C1Q class 1 & 2 eotehuyr3049-07-45 17:38:21 Test Item Value Reference Range Interpretation Comments Interpretation (test code ADDITIONAL ANTIBODY = 5011256) INFORMATION:DQ7 = DQB1*03:01; DQA1*05:03DQ7 = DQB1*03:19; DQA1*05:05DQ7 = DQB1*03:01; DQA1*06:01DQ9 = DQB1*03:03; DQA1*02:01DQ9 = DQB1*03:03; DQA1*03:02DQ8 = DQB1*03:02; DQA1*03:01DQ8 = DQB1*03:02; DQA1*03:02 Case number (test code = [id number]) C1Q class 1 & 2 antibody See link below for (test code = 5551510) PDF [facility], [facility], [facility]/[id number] 19:27:26 Test Item Value Reference Range Interpretation [...] 67.9 % 5368) [facility] [id number] 13:53:30 Test Item Value Reference Range Interpretation Comments POC glucose (test code = 124 mg/dL 65-99 H Ope rator Name: [id number]) Clint Bustamante RDevice ID: [id number] able : [facility] Notified clerk operator Interpretation (test Abnormal code = 42607-9) [facility][1] antigen [id number] 11:33:46 Test Item Value Reference Range Interpretation Comments SAB interpretation (test Additional Antibody code = 5950) Information:DQ2=DQB1 *02:01/DQA1*04:01, DQB1*02:01/DQA1*05:0 3IZ4=XDK5*04:02/DQA1 *04:31XP9=KRA4*03:01 /DPA1*01:03, DPB1*03:01/DPA1*02:0 2DM1=FGG2*04:02/DPA1 *01:09EC33=WVZ5*28:0 1/DPA1*01:03 SAB serum ID (test code = [id number] 5866) SAB serum collection D&T 08/23/2021 05:49 AM (test code = 5867) SAB class I antibody A11,A74,A32,A3,A31,A assignment (test code = 30,A36,A1,A29,A66,A8 5870) 0,A26,A25,A43,A34,A3 3,B82 SAB cPRA class I (test code = 5868) SAB class II antibody DR18,DR17,DR13,DR14, assignment (test code = DR52,DR11,DR8,DQ7,DR 5871) 12,DQ9,DR9,DR7,DQ8,D Q2,DR4,DQ4,DP2,DP14, DP4,DP9,DP10,DP18,DP 20,DP17,DP3,DP28 SAB cPRA class II (test code = 5869) Case number (test code = [id number]) Single antigen beads See link below for (test code = 4604) PDF [facility], [id number] 20:20:55 Test Item Value Reference Range Interpretation Comments Collection start date, urine (test 08/23/21 code = 80514-7) Collection start time, urine (test 8:40 code = 94090-5) Collection stop date, urine (test 08/24/21 code = 94987-0) Collection stop time, urine (test 8:40 code = 44565-3) Hours of collection (test code = 26700-4) Total volume, urine (test code = 800 mL 25497-0) Urine protein concentration (test 7 mg/dL code = 79329-0) Urine protein excretion (test code = mg/vol 2448) [facility], urine, [id number] 20:20:52 Test Item Value Reference Range Interpretation Comments Collection start date, urine (test 08/23/21 code = 35958-4) Collection start time, urine (test 8:40 code = 27662-4) Collection stop date, urine (test 08/24/21 code = 24374-5) Collection stop time, urine (test 8:40 code = 14254-3) Hours of collection (test code = 32019-3) Total volume, urine (test code = 800 mL 17617-6) Urine creatinine concentration 114 mg/dL (test code = 29331-8) Urine creatinine excretion (test mg/vol code = 16979-8) [facility] [Presence] in Respiratory specimen by GUSTAVO with probe [id number] 20:48:05 Test Item Value Reference Range Interpretation Comments SARS-CoV-2 (COVID-19) RNA Not detected Not-Detected [Presence] in Respiratory specimen by GUSTAVO with probe detection (test code = 06390-4) 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 (test code = 57884-5) Whether the patient has symptoms related to condition of interest (test code = 88248-5) Patient was hospitalized because of this condition (test code = 41080-5) Whether the patient was admitted to intensive care unit (ICU) for condition of interest (test code = 45435-6) Whether patient resides in a congregate care setting (test code = 02135-9) [facility] 12 [id number] 15:33:38 Test Item Value Reference Range Interpretation Comments Ventricular rate (test code = 253) Atrial rate (test code = 255) CT interval (test code = 266) QRSD interval [...] undetermined-Abnormal ECG- [facility] transplant [id number] 14:27:40 Test Item Value Reference Range Interpretation Comments HLA transplant evaluation See link below for (test code = 16443-0) PDF Lab Report Case number (test code = [id number]) [facility] ED Preliminary Interpretation - Not an [id number] 02:54:33 Test Item Value Reference Range Interpretation Comments REJI (test code = REJI) Orlando Balderrama MD 08/17/2021 10:33 [facility] ED Preliminary Interpretation - Not an OrderPerformed by: Orlando Balderrama MDAuthorized by: Orlando Balderrama MD ECG reviewed by ED Physician in the absence of a glue machine operator: yes Interpretation: Interpretation: abnormal Rate: ECG rate: 80 ECG rate assessment: normal Rhythm: Rhythm: sinus rhythm QRS: QRS axis: Normal QRS intervals: NormalST segments: ST segments: NormalOther findings: Other findings: prolonged qTc interval Lab Interpretation Abnormal (test code = 10124-8) [facility] OnealARS-CoV-2 (COVID-19) RNA [Presence] in Respiratory specimen by GUSTAVO with probe [id number] 23:59:30 Test Item Value Reference Range Interpretation Comments SARS-CoV-2 (COVID-19) RNA Not detected Not-Detected [Presence] in Respiratory specimen by GUSTAVO with probe detection (test code = 38662-9) 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 (test code = 16283-6) Whether the patient has symptoms related to condition of interest (test code = 19849-5) Patient was hospitalized because of this condition (test code = 45449-4) Whether the patient was admitted to intensive care unit (ICU) for condition of interest (test code = 44969-7) Whether patient resides in a congregate care setting (test code = 24700-8) status (test code = 58795-8) PHI MICHAELSARS-CoV-2 (COVID-19) RNA [Presence] in Respiratory specimen by GUSTAVO with probe [id number] 14:46:31 Test Item Value Reference Range Interpretation Comments SARS-CoV-2 (COVID-19) RNA Not detected Not-Detected [Presence] in Respiratory specimen by GUSTAVO with probe detection (test code = 65442-0) 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 (test code = 03083-1) Whether the patient has symptoms related to condition of interest (test code = 78266-5) Patient was hospitalized because of this condition (test code = 38576-0) Whether the patient was admitted to intensive care unit (ICU) for condition of interest (test code = 74533-0) Whether patient resides in a congregate care setting (test code = 61913-0) status (test code = 44763-8) PHI MICHAELSARS-CoV-2 (COVID-19) RNA [Presence] in Respiratory specimen by GUSTAVO with probe [id number] 19:52:10 Test Item Value Reference Range Interpretation Comments SARS-CoV-2 (COVID-19) RNA Not detected Not-Detected [Presence] in Respiratory specimen by GUSTAVO with probe detection (test code = 64903-6) 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 (test code = 23320-1) Whether the patient has symptoms related to condition of interest (test code = 77109-0) Patient was hospitalized because of this condition (test code = 43327-9) Whether the patient was admitted to intensive care unit (ICU) for condition of interest (test code = 25149-2) Whether patient resides in a congregate care setting (test code = 14864-5) status (test code = 69427-4) PHI MICHAELSARS-CoV-2 (COVID-19) RNA [Presence] in Respiratory specimen by GUSTAVO with probe [id number] 19:31:11 Test Item Value Reference Range Interpretation Comments SARS-CoV-2 (COVID-19) RNA Not detected Not-Detected [Presence] in Respiratory specimen by GUSTAVO with probe detection (test code = 80261-8) 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 (test code = 14698-6) Whether the patient has symptoms related to condition of interest (test code = 15237-2) Patient was hospitalized because of this condition (test code = 94459-1) Whether the patient was admitted to intensive care unit (ICU) for condition of interest (test code = 49944-3) Whether patient resides in a congregate care setting (test code = 58225-0) status (test code = 42496-2) PHI MICHAELSARS-CoV-2 (COVID-19) RNA [Presence] in Respiratory specimen by GUSTAVO with probe [id number] 02:26:38 Test Item Value Reference Range Interpretation Comments SARS-CoV-2 (COVID-19) RNA Not detected Not-Detected [Presence] in Respiratory specimen by GUSTAVO with probe detection (test code = 99227-1) PHI CORLEY KXFHUJQZ-TcR-8 (COVID-19) RNA [Presence] in Respiratory specimen by GUSTAVO with probe [id number] 21:10:32 Test Item Value Reference Range Interpretation Comments SARS-CoV-2 (COVID-19) RNA Not detected Not-Detected [Presence] in Respiratory specimen by GUSTAVO with probe detection (test code = 72872-0) PHI CORLEY HXNCRKRW-PxK-5 (COVID-19) RNA [Presence] in Respiratory specimen by GUSTAVO with probe [id number] 19:03:37 Test Item Value Reference Range Interpretation Comments SARS-CoV-2 (COVID-19) RNA Not detected Not-Detected [Presence] in Respiratory specimen by GUSTAVO with probe detection (test code = 34936-8) PHI BAHAI OWITWAWJ-QsW-3 (COVID-19) RNA [Presence] in Respiratory specimen by GUSTAVO with probe [id number] 05:36:17 Test Item Value Reference Range Interpretation Comments SARS-CoV-2 (COVID-19) RNA Not detected Not-Detected [Presence] in Respiratory specimen by GUSTAVO with probe detection (test code = 73041-2) PHI CORLEY TGQKMZDS-BfY-3 (COVID-19) IgG+IgM Ab [Presence] in Serum or Plasma by [id number] 09:52:00 Test Item Value Reference Range Interpretation Comments SARS-CoV-2 (COVID-19) IgG+IgM Ab Not detected [Presence] in Serum or Plasma by Immunoassay (test code = 71961-8) PHI MICHAELSARS-CoV-2 (COVID-19) RNA [Presence] in Respiratory specimen by GUSTAVO with probe [id number] 04:46:40 Test Item Value Reference Range Interpretation Comments SARS-CoV-2 (COVID-19) RNA [Presence] Detected Not-Detected in Respiratory specimen by GUSTAVO with probe detection (test code = 71935-4) PHI CORLEY QNMMJYSN-YtM-7 (COVID-19) RNA [Presence] in Respiratory specimen by GUSTAVO with probe [id number] 00:55:48 Test Item Value Reference Range Interpretation Comments SARS-CoV-2 (COVID-19) RNA Not detected Not-Detected [Presence] in Respiratory specimen by GUSTAVO with probe detection (test code = 98621-8) YIP BAHAI HGOMXWCB-QaV-1 (COVID-19) RNA [Presence] in Respiratory specimen by GUSTAVO with probe [id number] 08:17:26 Test Item Value Reference Range Interpretation Comments SARS-CoV-2 (COVID-19) RNA Not detected Not-Detected [Presence] in Respiratory specimen by GUSTAVO with probe detection (test code = 75278-3) YIP BAHAI TUEIFRWR-DuF-7 (COVID-19) RNA [Presence] in Respiratory specimen by GUSTAVO with probe [id number] 00:04:18 Test Item Value Reference Range Interpretation Comments SARS-CoV-2 (COVID-19) RNA Not detected Not-Detected [Presence] in Respiratory specimen by GUSTAVO with probe detection (test code = 65176-9) PHI MICHAELSARS-CoV-2 (COVID-19) RNA [Presence] in Respiratory specimen by GUSTAVO with probe [id number] 04:41:17 Test Item Value Reference Range Interpretation Comments SARS-CoV-2 (COVID-19) RNA Not detected Not-Detected [Presence] in Respiratory specimen by GUSTAVO with probe detection (test code = 84253-5) PHI SUTTON-CoV-2 (COVID-19) RNA [Presence] in Respiratory specimen by GUSTAVO with probe [id number] 04:13:39 Test Item Value Reference Range Interpretation Comments SARS-CoV-2 (COVID-19) RNA Not detected Not-Detected [Presence] in Respiratory specimen by GUSTAVO with probe detection (test code = 07191-2) PHI MICHAEL
--- NOTE | 2023-03-08 11:49 | RAD REPORT ---
EXAM DESCRIPTION: CT - CTHCSPWOC - 03/08/2023 11:35 am CLINICAL HISTORY: Trauma, head and neck injury. TRAUMA COMPARISON: Thoracic Spine W/o Cont dated 08/26/2020; Head C Spine Mpr Wo Con dated 08/26/2020; Head C Spine Mpr Wo Con dated 09/10/2019 TECHNIQUE: Axial 5 mm thick images of the head were obtained. Axial 2 mm thick images of the cervical spine were obtained with sagittal and coronal reconstruction images generated and reviewed. All CT scans are performed using dose optimization technique as appropriate and may include automated exposure control or mA/KV adjustment according to patient size. FINDINGS: CT HEAD WITHOUT CONTRAST: No acute hemorrhage, hydrocephalus or extra-axial collection is identified.No areas of brain edema or midline shift. Mucous retention cysts in the right maxillary sinus .The calvarium is intact. CT CERVICAL SPINE WITHOUT CONTRAST: No fracture or subluxation.No prevertebral soft tissues swelling is identified. IMPRESSION: No acute intracranial or cervical spine findings.
[2023-03-08] MEDS ORDERED: TDAP (DIPHTH,PERTUSS(ACELL),TET VAC) 0.5 ML VIAL IMVAC ONE (12:01)
--- NOTE | 2023-03-08 12:42 | RAD REPORT ---
EXAM DESCRIPTION: RAD - Ankle Right 3 View - 03/08/2023 12:32 pm CLINICAL HISTORY: Right ankle pain FINDINGS: No fracture or dislocation is seen.
--- NOTE | 2023-03-08 12:42 | RAD REPORT ---
EXAM DESCRIPTION: RAD - Elbow Left 3 View - 03/08/2023 12:32 pm CLINICAL HISTORY: Left elbow pain status post trauma FINDINGS: No fracture or dislocation is seen.
--- NOTE | 2023-03-08 12:43 | RAD REPORT ---
EXAM DESCRIPTION: RAD - Elbow Right 3 View - 03/08/2023 12:32 pm CLINICAL HISTORY: Right elbow pain status post injury FINDINGS: No fracture or dislocation is seen.
--- NOTE | 2023-03-08 13:06 | ER ---
Nurse's Notes [facility] Name: Bella Barron Age: 62 yrs Sex: Female : 1960 Arrival Date: 03/08/2023 Time: 11:13 Bed 17 Private MD: Diagnosis: Abrasion of left elbow;Pain in left elbow;Pain in right elbow;Pain in right ankle and joints of right foot;Fall on same level, unspecified Presentation: 03/08 11:15 Chief complaint: EMS states: fell when getting out of car, pt states her feet went numb eh3 and she fell onto both elbows and hit back of head, denies LOC. Abrasion to left elbow and c/o pain in right ankle. Care prior to arrival: None. Mechanism of Injury: Fall from vehicle to concrete Trauma event details: Injury occurred in the [facility], Injury occurred: March 08, 2023. 11:15 Acuity: OLEG 2 eh3 11:15 Method Of Arrival: EMS: [facility] 3 11:19 Coronavirus screen: Vaccine status: Patient reports receiving the 2nd dose of the covid eh3 vaccine. Ebola Screen: No symptoms or risks identified at this time. Initial Sepsis Screen: Does the patient meet any 2 criteria? No. Patient's initial sepsis screen is negative. Does the patient have a suspected source of infection? No. Patient's initial sepsis screen is negative. Risk Assessment: Do you want to hurt yourself or someone else? Patient reports no desire to harm self or others. Onset of symptoms was March 08, 2023. Historical: - Allergies: 11:15 ceftriaxone; eh3 11:15 Ciprofloxacin; eh3 11:15 EGG/POULTRY; eh3 11:15 Iodine; eh3 11:15 LACTASE; eh3 11:15 Promethazine; eh3 - PMHx: 11:15 cirrhosis of liver; Crohn's Disease; hypotension; kidney disease; trach removed Jun; - Immunization history: Last tetanus immunization: - up to date. - Social history:: Smoking status: Patient reports the use of cigarette tobacco products, smokes one pack cigarettes per day. Screenin:15 Abuse screen: Denies threats or abuse. Denies injuries from another. Tuberculosis eh3 screening: No symptoms or risk factors identified. 11:20 [facility] ED Fall Risk Assessment (Adult) Score/Fall Risk Level 0 - 2 = Low Risk. eh3 Nutritional screening: No deficits noted. Primary Survey: 11:15 NO uncontrolled hemorrhage observed. Breathing/Chest: Spontaneous respiratory effort, eh3 equal unlabored respirations, breath sounds clear bilaterally, regular pattern, symmetrical chest rise and fall. Circulation: No external hemorrhage present. Regular and strong central pulse, skin warm/dry/normal color. Disability Pupils are equal, round, reactive to light and accommodation. Client is alert. Exposure/Environment: All clothing and personal items were removed. There is no evidence of uncontrolled external bleeding. Obvious injury(ies) are noted at this time: abrasion to left elbow A warming method has been applied: A warm blanket has been provided to the patient. Reassessment Breathing: Spontaneous respiratory effort, equal unlabored respirations, breath sounds clear bilaterally, regular pattern with symmetrical chest rise and fall. Circulation: No external hemorrhage noted. Regular and strong central pulse, skin warm/dry/normal color. Disability: Pupils Pupils are equal, round, reactive to light and accomodation. Alert. Assessment: 11:15 General: Appears in no apparent distress. uncomfortable, Behavior is calm, cooperative, eh3 appropriate for age. Pain: Complains of pain in right foot and left arm. Neuro: Level of Consciousness is awake, alert, obeys commands, Oriented to person, place, time, situation. Cardiovascular: Capillary refill < 3 seconds Patient's skin is warm and dry. Respiratory: Airway is patent Respiratory effort is even, unlabored, Respiratory pattern is regular, symmetrical. GI: Abdomen is round non-distended. Derm: Skin is pink, warm \T\ dry. Wound noted left elbow. Musculoskeletal: Circulation, motion, and sensation intact. 12:15 Reassessment: Patient appears in no apparent distress at this time. Patient and/or eh3 family updated on plan of care and expected duration. Pain level reassessed. Patient is alert, oriented x 3, equal unlabored respirations, skin warm/dry/pink. 13:15 Reassessment: Patient appears in no apparent distress at this time. Patient and/or eh3 family updated on plan of care and expected duration. Pain level reassessed. Patient is alert, oriented x 3, equal unlabored respirations, skin warm/dry/pink. Vital Signs: 11:15 BP 119 / 79; Pulse 87; Resp 18; Temp 98.1(O); Pulse Ox 96% on R/A; Weight 68.49 kg; eh3 Height 4 ft. 11 in. ; Pain 7/10; 12:15 BP 116 / 77; Pulse 102; Resp 18; Pulse Ox 99% on R/A; eh3 13:15 BP 115 / 66; Pulse 92; Resp 20; Pulse Ox 99% on R/A; eh3 11:15 Body Mass Index 30.50 (68.49 kg, 149.86 cm) eh3 11:15 Pain Scale: Adult eh3 Yojana Coma Score: 11:15 Eye Response: spontaneous(4). Motor Response: obeys commands(6). Verbal Response: eh3 oriented(5). Total: 15. Trauma Score (Adult): 11:15 Eye Response: spontaneous(1); Verbal Response: oriented(1); Motor Response: obeys eh3 commands(2); Systolic BP: > 89 mm Hg(4); Respiratory Rate: 10 to 29 per min(4); Henderson Score: 15; Trauma Score: 12 ED Course: 11:15 Patient arrived in ED. eh3 11:15 Azam Farrell DO is Attending Physician. ms3 11:15 Stacey Christianson, AMARILIS is Primary Nurse. eh3 11:15 Patient has correct armband on for positive identification. Placed in gown. Bed in low eh3 position. Call light in reach. Side rails up X2. Patient maintains SpO2 saturation greater than 95% on room air. 11:15 Patient maintains SpO2 saturation greater than 95% on room air. eh3 11:17 Triage completed. eh3 11:19 Arm band placed on. eh3 11:20 Client placed on continuous cardiac and pulse oximetry monitoring. NIBP monitoring eh3 applied. 11:37 CT Head C Spine In Process Unspecified. EDMS 12:15 Provided Education on: N/A. eh3 12:34 Elbow Right 3 View XRAY In Process Unspecified. EDMS 12:34 Elbow Left 3 View XRAY In Process Unspecified. EDMS 12:34 Ankle Right 3 View XRAY In Process Unspecified. EDMS 13:05 Fernando Díaz DO is Referral Physician. ms3 13:31 No provider procedures requiring assistance completed. Patient did not have IV access eh3 during this emergency room visit. Administered Medications: 12:00 Drug: Tetanus-Diphtheria Toxoid IM Adult 0.5 ml {School Guidance Counselor: [employer] ([employer]). eh3 Exp: 08/29/2023. Lot #: [id number]. } Route: IM; Site: right deltoid; 13:10 Follow up: Response: (VIS) Vaccine information sheet provided today. Questions and/or eh3 concerns addressed. VIS edition date: Mar 17, 2021.; No adverse reaction 13:25 Drug: HYDROcodone-acetaminophen PO 5 mg-325 mg 1 tabs Route: PO; eh3 13:54 Follow up: Response: No adverse reaction eh3 Medication: 12:00 Vaccine Information Statement (VIS) provided today. Questions and/or concerns eh3 addressed. VIS edition date: April 01, 2021. Outcome: 13:06 Discharge ordered by . ms3 13:31 Discharged to home ambulatory, with significant other. eh3 13:31 Condition: stable 13:31 Discharge instructions given to patient, significant other, Instructed on discharge instructions, follow up and referral plans. Demonstrated understanding of instructions, follow-up care. 13:35 Patient left the ED. eh3 Signatures: Dispatcher [employer] EDMS Azam Farrell DO DO ms3 Stacey Christianson RN RN eh3 Corrections: (The following items were deleted from the chart) 12:05 12:05 Stacey Christianson, AMARILIS is Primary Nurse. eh3 eh3
--- NOTE | 2023-03-08 13:07 | EDPHYS ---
Physician Documentation [facility] Name: Bella Barron Age: 62 yrs Sex: Female : 1960 Arrival Date: 03/08/2023 Time: 11:13 Bed 17 Private MD: ED Physician Azam Farrell HPI: 03/08 11:36 This 62 yrs old Female presents to ER via EMS with complaints of Fall Injury. ms3 11:36 62-year-old female with past medical history of neuropathy presents via [facility] ms3 status post fall while getting out of her car just prior to arrival. Patient is complaining of bilateral elbow, right ankle, head/neck pain. Patient states the pain is moderate. Patient denies alleviating or inciting factors. Patient denies nausea, vomiting, loss of consciousness. Patient states she is unaware of her last tetanus vaccine. Historical: - Allergies: 11:15 ceftriaxone; eh3 11:15 Ciprofloxacin; eh3 11:15 EGG/POULTRY; eh3 11:15 Iodine; eh3 11:15 LACTASE; eh3 11:15 Promethazine; eh3 - PMHx: 11:15 cirrhosis of liver; Crohn's Disease; hypotension; kidney disease; trach removed Jun; - Immunization history: Last tetanus immunization: - up to date. - Social history:: Smoking status: Patient reports the use of cigarette tobacco products, smokes one pack cigarettes per day. ROS: 11:36 Constitutional: Negative for fever, and chills. Neck: Negative for injury, pain, and ms3 swelling, Cardiovascular: Negative for chest pain, and palpitations. Respiratory: Negative for shortness of breath, cough, wheezing, and pleuritic chest pain, Abdomen/GI: Negative for abdominal pain, nausea, vomiting, diarrhea, and constipation. 11:36 MS/extremity: Positive for pain. 11:36 Skin: Positive for abrasion(s). 11:36 All other systems are negative. Exam: 11:36 Constitutional: This is a well developed, well nourished patient who is awake, alert, ms3 and in no acute distress. Head/Face: Normocephalic, atraumatic. Neck: Trachea midline, no cervical lymphadenopathy. Supple, full range of motion without nuchal rigidity, or vertebral point tenderness. No Meningismus. Chest/axilla: Normal chest wall appearance and motion. Nontender with no deformity. Cardiovascular: Regular rate and rhythm with a normal S1 and S2. No gallops, murmurs, or rubs. Normal PMI, no JVD. No pulse deficits. Respiratory: Lungs have equal breath sounds bilaterally, clear to auscultation and percussion. No rales, rhonchi or wheezes noted. No increased work of breathing, no retractions or nasal flaring. Abdomen/GI: Soft, non-tender, with normal bowel sounds. No distension or tympany. No guarding or rebound. No evidence of tenderness throughout. 11:36 Musculoskeletal/extremity: Extremities: noted in the Right ankle: pain, tenderness. 11:36 Skin: injury, abrasion(s), moderate sized abrasion noted, of the left elbow. Vital Signs: 11:15 BP 119 / 79; Pulse 87; Resp 18; Temp 98.1(O); Pulse Ox 96% on R/A; Weight 68.49 kg; eh3 Height 4 ft. 11 in. ; Pain 7/10; 12:15 BP 116 / 77; Pulse 102; Resp 18; Pulse Ox 99% on R/A; eh3 13:15 BP 115 / 66; Pulse 92; Resp 20; Pulse Ox 99% on R/A; eh3 11:15 Body Mass Index 30.50 (68.49 kg, 149.86 cm) eh3 11:15 Pain Scale: Adult eh3 Yojana Coma Score: 11:15 Eye Response: spontaneous(4). Motor Response: obeys commands(6). Verbal Response: eh3 oriented(5). Total: 15. Trauma Score (Adult): 11:15 Eye Response: spontaneous(1); Verbal Response: oriented(1); Motor Response: obeys eh3 commands(2); Systolic BP: > 89 mm Hg(4); Respiratory Rate: 10 to 29 per min(4); Yojana Score: 15; Trauma Score: 12 MDM: 11:15 Patient medically screened. ms3 11:36 Differential diagnosis: abrasion, closed head injury, contusion, fracture, sprain, ms3 strain. 13:08 Data reviewed: vital signs, nurses notes, radiologic studies, CT scan, plain films, and ms3 as a result, I will discharge patient. I considered the following discharge prescriptions or medication management in the emergency department Medications were administered in the Emergency Department. See MAR. Independent interpretation of the following test(s) in the Emergency Department X-Ray: My interpretation is Right elbow images reviewed by me do not show fracture. Historians other than the Patient: EMS: [facility]. Care significantly affected by the following chronic conditions: Chronic Kidney Disease, Liver Disease. Counseling: I had a detailed discussion with the patient and/or guardian regarding: the historical points, exam findings, and any diagnostic results supporting the discharge/admit diagnosis, radiology results, the need for outpatient follow up, to return to the emergency department if symptoms worsen or persist or if there are any questions or concerns that arise at home. Special discussion: I discussed with the patient/guardian in detail that at this point there is no indication for admission to the hospital. It is understood, however, that if the symptoms persist or worsen the patient needs to return immediately for re-evaluation. ED course: Discussed radiology imaging with patient. Patient to follow-up with her primary care physician in 2 to 3 days. Patient understands and agrees with plan. All questions were answered. Return precautions discussed include worsening symptoms, or any other concerns. On reevaluation patient is alert and orient x4, no apparent distress, nontoxic-appearing.. 03/08 11:16 Order name: CT Head C Spine; Complete Time: 12:59 ms3 03/08 11:16 Order name: Elbow Right 3 View XRAY; Complete Time: 12:59 ms3 03/08 11:16 Order name: Elbow Left 3 View XRAY; Complete Time: 12:59 ms3 03/08 11:16 Order name: Ankle Right 3 View XRAY; Complete Time: 12:59 ms3 Administered Medications: 12:00 Drug: Tetanus-Diphtheria Toxoid IM Adult 0.5 ml {Engineering Documentation Specialist: [employer] ([employer]). eh3 Exp: 08/29/2023. Lot #: [id number]. } Route: IM; Site: right deltoid; 13:10 Follow up: Response: (VIS) Vaccine information sheet provided today. Questions and/or eh3 concerns addressed. VIS edition date: Mar 17, 2021.; No adverse reaction 13:25 Drug: HYDROcodone-acetaminophen PO 5 mg-325 mg 1 tabs Route: PO; eh3 13:54 Follow up: Response: No adverse reaction eh3 Disposition Summary: 03/08/23 13:06 Discharge Ordered Location: Home ms3 Condition: Stable ms3 Diagnosis - Abrasion of left elbow ms3 - Pain in left elbow ms3 - Pain in right elbow ms3 - Pain in right ankle and joints of right foot ms3 - Fall on same level, unspecified ms3 Followup: ms3 - With: Fernando Díaz DO - When: 2 - 3 days - Reason: Recheck today's complaints Discharge Instructions: - Discharge Summary Sheet ms3 - Musculoskeletal Pain ms3 - Abrasion, [id number] ms3 Forms: - Medication Reconciliation Form ms3 - Thank You Letter ms3 - Antibiotic Education ms3 - Prescription Opioid Use ms3 - Patient Portal Instructions ms3 Signatures: Dispatcher [employer] Azam Morgan DO DO ms3 Stacey Christianson, RN RN 3
[2023-03-08] MEDS ORDERED: HYDROCODONE/APAP 5/325 MG TAB ONE (13:38)
[2023-03-08 13:41] VITALS: TEMP 98.1
[2023-03-08 13:43] VITALS: O2SAT 99
[2023-03-08 13:44] VITALS: BP 115/66
== END 2023-03-08 13:35 | disposition home or self-care (01) ==
LOC: ER 11:13
DX: S50.312A Abrasion of left elbow, initial encounter (principal); M25.521 Pain in right elbow; M25.571 Pain in right ankle and joints of right foot; W18.30XA Fall on same level, unspecified, initial encounter; F17.210 Nicotine dependence, cigarettes, uncomplicated; Z23 Encounter for immunization; Z88.1 Allergy status to other antibiotic agents; Z88.8 Allergy status to other drugs, medicaments and biological substances; Z91.012 Allergy to eggs
CPT/HCPCS: 70450; 72125; 90471; 99285

== ENCOUNTER 2023-03-11 20:59 | Emergency (ER) | payer OTHER ==
--- OUTSIDE RECORDS SUMMARY | 2023-03-11 21:20 | XMS REPORT | Continuity of Care Document ---
:[address] [facility] t Address [address] [place] [address] Care Team Providers Name Role Phone Jose Calos Bustamante Primary Care Physician Fernando Man Attending Clinician Unavailable IVIS GARVEY Attending Clinician Unavailable PEDRO BRIDGES Attending Clinician Unavailable RAY LACY Attending Clinician Unavailable MD DIANA BANGURA Attending [...] SALLY AGUDELO Attending Clinician Unavailable Doctor Unassigned, [place] Attending Clinician Unavailable Mercy Tamez MD Attending Clinician Cam LAMAR, Libby Attending Clinician LIBBY LEVY Attending Clinician Unavailable Rafael FRANKLIN, Kendy Dalal Attending Clinician [phone] KENDY HALL Attending Clinician Unavailable Silvio FRANKLIN, Dawna Attending Clinician Isabella FRANKLIN, Zara Stevenson Attending Clinician [phone] Vj FRANKLIN, Shiela Man Attending Clinician [...] Clinician Unavailable Wild Kovacs DO Attending Clinician [phone] Mildred FRANKLIN, Cliff Marion Attending Clinician MD CALOS GARCIA Attending Clinician Unavailable Freedom Gutierrez DO Attending Clinician Chris FRANKLIN, Robby Rios Attending Clinician [phone] MD HERIBERTO YORK Attending Clinician Unavailable MD PIERCE MARSHALL Attending Clinician Unavailable NOBLE ALMEIDA Attending Clinician Unavailable YIFAN CUMMINS Attending Clinician Unavailable MERCY RUEDA Attending Clinician Unavailable MD HERMILO CHAMPION Attending Clinician Unavailable JUNO DIAL Attending Clinician Unavailable DO MERCY RUEDA Attending Clinician Unavailable EBONY ROPER Attending Clinician Unavailable RA RHODES Attending Clinician Unavailable Lita Fuchs S Attending Clinician LITA CORRIGAN S Attending Clinician Unavailable DARCY, UMAR [...] Expiration Date S ource MEDICARE A B [id number] 2015 00:00:00 GENERIC MEDICAID [id number] 2021 HMO 00:00:00 WELLMED/UHC DUAL [id number] 2022 COMP HMO D SNP 00:00:00 LEACH [id number] 2022 HEALTHCARE STAR 00:00:00 PLUS MEDICARE PART A [id number] 2015 \\T\\ B 00:00:00 MEDICAID OF [id number] 2018 [place] 00:00:00 [facility] [id number] Common [facility] MEDICARE NOVITAS MB [id number] 2015 Common 00:00:00 [facility] [id number] Common [facility] MEDICARE NOVITAS MB [id number] 2015 Common 00:00:00 [facility] MEDICARE NOVITAS MB [id number] 2015 Common 00:00:00 [facility] [id number] [facility] MEDICARE NOVITAS MB [id number] 2015 Common 00:00:00 [facility] [id number] [facility] [id number] [facility] MEDICARE NOVITAS MB [id number] 2015 Common 00:00:00 [facility] [id number] [facility] MEDICARE NOVITAS MB [id number] 2015 Common 00:00:00 [facility] MEDICARE NOVITAS MB [id number] 2015 Common 00:00:00 [facility] [id number] [facility] MEDICARE NOVITAS MB [id number] 2015 Common 00:00:00 [facility] [id number] [facility] MEDICARE NOVITAS MB [id number] 2015 Common 00:00:00 [facility] [id number] [facility] Problems Condition Condition Condition Status Onset Resolution Last Treating Co mments Source Name Details Category Date Date Treatment Clinician Date Altered Altered Disease Active [facility] mental mental 09-02 [facility] status status 00:00: [...] Added automatic ally from request for surgery [id number] Chronic Chronic Disease Active 2020-08 Methodi kidney [...] nivers ia ia 03-06 ity of 00:00: [place] [address] Medical Branch Abdominal Abdominal Disease Active Met [...] Added automatic ally from request for surgery [id number] Persistent Persistent Disease Active M ethodi depressive depressive 2-28 st disorder disorder 00:00: Hospit a 00 l 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 2-02 it y of athy athy 00:00: [place] 00 [facility] Branch Hepatic Hepatic Disease Active 2015-08 Methodi encephalop encephalop 1-15 st athy athy 00:00: Hospita 00 l Thrombocyt Thrombocyt Disease Active M ethodi openia openia 05-04 00:00: Hospita 00 l Malnutriti Malnutriti Disease Active M ethodi on on 05-04 00:00: Hospita 00 l Right Right Disease Active Univers shoulder shoulder 4-25 ity of pain pain 00:00: [place] [facility] Anxiety Anxiety Disease Active Univers and and 4- [place] [facility] Rectal Rectal Disease Active 2014-08 Univers bleed bleed 2-03 ity of 00:00: [place] 00 [facility] Cirrhosis Cirrhosis Disease Recurre [facility] Crohn Crohn Disease Recurre [facility] disease disease [facility] [id number] Secondary Problem Comm on esophageal Spirit varices - [facility] without [facility] bleeding [facility] [id number] Portal Problem Common hypertensi Spirit on - 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 portosyste Medica l jacqueline shunt) [place] [id number] MCFARLANE Problem Common (nonalcoho Spirit lic - [facility] steato[facility] [id number] End stage Problem Com mon liver Spirit disease - [facility] [id number] Unspecifie Problem Co mmon d Spirit cirrhosis - [facility] of liver [facility] Cirrhosis Non-alcoho Problem Co mmon - lic Spirit non-alcoho cirrhosis - C HI lic 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 Fatigue Fatigue Problem Common Spirit - [facility] Chronic Chronic Problem Common pain pain Spirit - [facility] Anxiety Anxiety Problem Common Spirit [facility] Depression Depression Problem C ommon Spirit - [facility] Kidney Kidney Problem Common stone stone [facility] Thrombocyt Thrombocyt Problem C ommon openia openia [facility] Bipolar Bipolar Problem Common disorder disorder [facility] Restless Restless Problem Commo n legs legs Spirit syndrome syndrome [facility] [id number] Inflammato Problem Com mon ry bowel Spirit disease [facility] [id number] Incontinen Problem Com mon ce of Spirit feces, - [facility] unspecifie d fecal [facility] incontinen Medica l ce type Center Body mass BMI Problem Common index 40+ 40.0-44.9, Spi rit - morbidly adult - [facility] obese [facility] Allergic Seasonal Problem Commo n rhinitis and Spirit perennial - [facility] allergic rhinitis [facility] Irritable Irritable Problem Com mon bowel bowel Spirit syndrome syndrome - [facility] without [facility] [id number] Adult BMI Problem Com mon 35.0-35.9 Spirit kg/sq [facility] [id number] Insomnia, Problem Com mon unspecifie Spirit d type - [facility] Migraine Migraine Problem Commo n [facility] Gout Gout Problem Common [facility] Allergies, Adverse Reactions, Alerts Allergy Allergy Status Severity Reaction(s) Onset Inactive Treating Comm ents Source Name Type Date Date Clinician Shellfis Drug Active [facility] Allergy 2-01 [facility] Containi 00:00: Medical ng 00 [place] Products Fish Drug Active [facility] Containi Allergy 2- [facility] ng 00:00: Medical Products 00 [place] Shellfis Drug Active [facility] Allergy 2-01 [facility] Containi 00:00: Medical ng 00 [place] Products FISH Allergy Active [facility] CONTAINI 2-01 [facility] NG 00:00: Medical PRODUCTS 00 [place] SHELLFIS Allergy Active [facility] H 2-01 [facility] CONTAINI 00:00: Medical NG 00 [place] PRODUCTS Fish Drug Active [facility] Containi Allergy 2-01 [facility] ng 00:00: Medical Products 00 [place] EGGSHELL Allergy Active [facility] MEMBRANE 09-07 [facility] 00:00: Medical 00 [place] Eggshell Drug Active [facility] Membrane Allergy 09-07 [facility] 00:00: Medical 00 [place] CEFTRIAX Allergy Active [facility] ONE 1- [...] to drug Ceftriax Propensi Active Itching 2017- Unive rs one ty to 10-06 ity of adverse 00:00: [place] reaction 00 [facility] CEFTRIAX DRUG Active ITCHING 2017-0 Univers ONE INGREDI 10-06 ity of 00:00: [place] 00 [facility] Prometha Propensi Active Other - See 2017-0 Severe U nivers zine ty to comments - confusion ity o f adverse 00:00: [place] reaction 00 [facility] PROMETHA DRUG Active Other-Cmnt 2017-0 Univ ers ZINE INGREDI 3- ity of 00:00: [place] 00 [facility] Eggshell Propensi Active Diarrhea 2017-0 Egg yoke Me thodi Membrane ty to 2 st adverse 00:00: Hospita reaction 00 l s to drug Eggshell Propensi Active Diarrhea 2017-0 Egg yoke Un linda Membrane ty to 2 ity of adverse 00:00: [place] reaction 00 Medical Branch EGGSHELL DRUG Active Diarrhea 2017-0 Univer s MEMBRANE INGREDI 2- ity of 00:00: [place] 00 [facility] Prometha Propensi Active Other (See 2017-0 Severe [...] ity of DERIVED 00:00: [place] 00 Medical [place] Iodine Propensi Active Anaphylaxis SOB, Met hodi ty to 05-01 wheezing, st adverse 00:00: "my Hospita reaction 00 throat l s to closes drug up."*pt states cannot have topical nor IV Iodine Propensi Active Anaphylaxis Uni vers ty to 03-29 ity of adverse 00:00: [place] reaction 00 Medical [facility] IODINE DRUG Active Anaphylaxis Unive rs INGREDI 03-29 ity of 00:00: [place] 00 [facility] 463 Drug Active Unknown Common allergy [facility] prometha prometha Active Unknown Commo n zine zine [facility] NO KNOWN Allergy Active [facility] S Family History Family Member Diagnosis Comments Start Date Stop Date Source Natural father No Known Problems Met [facility] Natural mother No Known Problems Met [facility] Social History Social Habit Start Date Stop Date Quantity Comments Source History SDOH [facility] Alcohol Std [facility] History SDOH [facility] Alcohol Binge Medical [address] ter Exposure to Not sure University of SARS-CoV-2 (event) [facility] History of Tobacco Common Spirit - Use [facility] History SDOH 2021-09-02 2021-09-[address] [facility] Alcohol Frequency 00:00:00 00:00:00 [facility] Alcohol intake 2021-09-02 2021-09-[address] Alejo es 00:00:00 00:00:00 non-drinker Medical Nitza cantu (finding) Tobacco use and 2019-01-30 2019-01-30 Smokeless tobacco Un iversity of exposure 00:00:00 00:00:00 non-user [facility] Cigarettes smoked 2016-11-22 2016-11-[address] current (pack per 00:00:00 00:00:00 Hospita l day) - Reported Cigarette 2016-11-22 2016-11-22 [facility] pack-years 00:00:00 00:00:00 Hospital Tobacco Comment 2016-09-12 2016-09-12 smokes 5 [facility] 00:00:00 00:00:00 cigarettes per Hospital day Alcohol Comment 2016-05-02 2016-05-02 Former social Method ist 00:00:00 00:00:00 alcohol use, quit Hospita l several years ago; denies history of heavy alcohol use Sex Ass[birth year] [facility] 00:00:00 00:00:00 [facility] Smoking Status Start Date Stop Date Source Former Smoker 2021-10-13 00:00:00 2021-10-13 00:00:00 Common S pirit - [facility] Ce nter Never smoked tobacco [facility] Medications Ordered Filled Start Stop Current Ordering Indication Dosage Frequency Signature Comments Components Source Medication Medication Date Date Medication? Clinician (SIG) Name Name ketorolac No 30mg 30 mg, Unive rs (TORADOL) 11-07 Intramuscu ity of injection 19:15: 18:35 lar, ONCE, [place] 30 mg 00 :00 1 dose, On Medical Wed Branch 11/07/22 at 1415, Routine estradioL Yes [id number] Apply 1g Univers (ESTRACE) 2- vaginally ity o f 0.01 % (0.1 00:00: at bedtime [place] mg/gram) 00 every Medical vaginal night for Branch cream 2 weeks and then apply 1g vaginally at bedtime 3 times per week ( dn/ ida) nystatin Yes [id number] Apply to Un linda (NYSTOP) 2-21 area(s) 3 ity of 100,000 00:00: (three) [place] unit/gram 00 times Medical powder daily. Branch estradioL Yes [id number] Apply 1g Univers (ESTRACE) 2-21 vaginally ity o f 0.01 % (0.1 00:00: at bedtime [place] mg/gram) 00 every Medical vaginal night for Branch cream 2 weeks and then apply 1g vaginally at bedtime 3 times per week ( dn/ iday) nystatin 2022-0 Yes [id number] Apply to Un linda (NYSTOP) 2-21 area(s) 3 ity of 100,000 00:00: (three) [place] unit/gram 00 times Medical powder daily. Branch estradioL Yes [id number] Apply 1g Univers (ESTRACE) 2-21 vaginally ity o f 0.01 % (0.1 00:00: at bedtime [place] mg/gram) 00 every Medical vaginal night for Branch cream 2 weeks and then apply 1g vaginally at bedtime 3 times per week (/ ida) nystatin 0 Yes [id number] Apply to Un linda (NYSTOP) 2-21 area(s) 3 ity of 100,000 00:00: (three) [place] unit/gram 00 times Medical powder daily. Branch estradioL Yes [id number] Apply 1g Univers (ESTRACE) 2-21 vaginally ity o f 0.01 % (0.1 00:00: at bedtime [place] mg/gram) 00 every Medical vaginal night for Branch cream 2 weeks and then apply 1g vaginally at bedtime 3 times per week (/ ida) nystatin Yes [id number] Apply to Un linda (NYSTOP) 2-21 area(s) 3 ity of 100,000 00:00: (three) [place] unit/gram 00 times Medical powder daily. Branch methylnaltr Yes Take by Uni vers exone 2-16 mouth. ity of bromide 14:28: [place] (RELISTOR 49 Medical ORAL) [place] potassium Yes Take by Unive rs (POTASSIMIN 2-16 mouth once it y of ORAL) 14:28: now. [address] spironolact 0 Yes 100mg Take 100 U nivers one 100 mg 2-16 mg by ity of tablet 14:28: mouth. [address] methylnaltr 0 Yes Take by Uni vers exone 2-16 mouth. ity of bromide 14:28: [place] (RELISTOR 49 Medical ORAL) [place] potassium Yes Take by Unive rs (POTASSIMIN 2-16 mouth once it y of ORAL) 14:28: now. [address] spironolact 2022-0 Yes 100mg Take 100 U nivers one 100 mg 2-16 mg by ity of tablet 14:28: mouth. [address] methylnaltr 2021-0 Yes Take by Uni vers exone 2-16 mouth. ity of bromide 14:28: [place] (RELISTOR 49 Medical ORAL) Branch potassium 2021-0 Yes Take by Unive rs (POTASSIMIN 2-16 mouth once it y of ORAL) 14:28: now. [address] spironolact 2021-0 Yes 100mg Take 100 U nivers one 100 mg 2-16 mg by ity of tablet 14:28: mouth. [address] methylnaltr 2021-0 Yes Take by Uni vers exone 2-16 mouth. ity of bromide 14:28: [place] (RELISTOR 49 Medical ORAL) Branch potassium 2021-0 Yes Take by Unive rs (POTASSIMIN 2-16 mouth once it y of ORAL) 14:28: now. [address] spironolact 2021-0 Yes 100mg Take 100 U nivers one 100 mg 2-16 mg by ity of tablet 14:28: mouth. [address] lactulose 2021-0 Yes 20g Q.[id number] Take [address] (Kristalose 2-07 [id number] packet (20 [facility]ukes ) 20 gram 00:00: 3D g total) Medi cj packet 00 by mouth 3 Center (three) times daily START ONCE STOOLS ARE FORMED.. lactulose 2021-0 Yes 20g Q.[id number] Take [address] (Kristalose 2-07 [id number] packet (20 [facility] ) 20 gram 00:00: 3D g total) Medi cj packet 00 by mouth 3 Center (three) times daily START ONCE STOOLS ARE FORMED.. lactulose 2021-0 Yes 20g Q.[id number] Take [address] (Kristalose 2-07 [id number] packet (20 [facility] ) 20 gram 00:00: 3D g total) Medi cj packet 00 by mouth 3 Center (three) times daily START ONCE STOOLS ARE FORMED.. lactulose 2021-0 Yes 20g Q.[id number] Take [address] (Kristalose 2-07 [id number] packet (20 [facility] ) 20 gram 00:00: 3D g total) Medi cj packet 00 by mouth 3 Center (three) times daily START ONCE STOOLS ARE FORMED.. lactulose 202-0 Yes 20g Q.[id number] Take [address] (Kristalose 2-07 [id number] packet (20 [facility] ) 20 gram 00:00: 3D g total) Medi cj packet 00 by mouth 3 Center (three) times daily START ONCE STOOLS ARE FORMED.. lactulose 2021-0 Yes 20g Q.[id number] Take [address] (Kristalose 2-07 [id number] packet (20 [facility] ) 20 gram 00:00: 3D g total) Medi cj packet 00 by mouth 3 Center (three) times daily START ONCE STOOLS ARE FORMED.. lactulose 2021-0 Yes 20g Q.[id number] Take [address] (Kristalose 2-07 [id number] packet (20 [facility] ) 20 gram 00:00: [...] CH I St e 2-05 tablet by Lusalo (PROTONIX) 12:13: mouth Medica l 40 MG [...] CH I St 200 mg Tab 2- 02-08 tablet [facility]ukes 00:00: 23:59 (200 mg Medical 00 :00 total) by Center mouth every 12 (twelve) hours for 3 days. fidaxomicin 2021-0 2021- No 200mg Take [address] 200 mg Tab 2- 02-08 tablet [facility]ukes 00:00: 23:59 (200 mg Medical 00 :00 total) by Center mouth every 12 (twelve) hours for 3 days. fidaxomicin 2021-0 2021- No 200mg Take [address] 200 mg Tab 2-05 02-08 tablet [facility]ukes 00:00: 23:59 (200 mg Medical 00 :00 total) by Center mouth every 12 (twelve) hours for 3 days. lactulose 2021-0 2021- No 1{packe Q.[id number] Take [address] (Kristalose 2-04 02-04 t} [id number] packet by [facility] ) 20 gram 15:50: 00:00 3D mouth 3 Medi cj packet 31 :00 (three) Center times daily. lactulose 2-0 2022- No 1{packe Q.[id number] Take [address] (Kristalose 2-04 02-04 t} [id number] packet by [facility] ) 20 gram 15:50: 00:00 3D mouth 3 Medi cj packet 31 :00 (three) Center times daily. lactulose 2022-0 2022- No 1{packe Q.[id number] Take [address] (Kristalose 2-04 02-04 t} [id number] packet by [employer] ) 20 gram 15:50: 00:00 3D mouth 3 Medi cj packet 31 :00 (three) Center times daily. zinc 2021-[address] [address] oxide-luana 2-04 TOPICALLY Alejo es latum 00:00: BID. Medical (CRITIC-AID [address] [place] [address] ) 20-51 % Pste topical paste zinc 2021-[address] oxide-luana 2-04 TOPICALLY Alejo es latum 00:00: BID. Medical (CRITIC-AID [address] [place] [address] ) 20-51 % Pste topical paste zinc 2021-[address] [facility] oxide-luana 2-04 TOPICALLY Alejo es latum 00:00: BID. Medical (CRITIC-AID [address] [place] [address] ) 20-51 % Pste topical paste zinc 2021-[address] [facility] oxide-luana 2-04 TOPICALLY Alejo es latum 00:00: BID. Medical (CRITIC-AID [address] [place] [address] ) 20-51 % Pste topical paste zinc 2-[address] [facility] oxide-luana 2-04 TOPICALLY Alejo es latum 00:00: BID. Medical (CRITIC-AID [address] [place] [address] ) 20-51 % Pste topical paste zinc 2-[address] [facility] oxide-luana 2-04 TOPICALLY Aljeo es latum 00:00: BID. Medical (CRITIC-AID [address] [place] [address] ) 20-51 % Pste topical paste zinc 2-[address] [facility] oxide-luana 2-04 TOPICALLY Alejo es latum 00:00: BID. Medical (CRITIC-AID [address] [place] [address] ) 20-51 % Pste topical paste nystatin 2-0 2023- No Q.5D Apply [facility] (MYCOSTATIN 2-04 02-04 topically Susanna kes ) 100,000 00:00: 23:59 2 (two) Medi cj unit/gram 00 :00 times Center powder daily. cholestyram 2022- No 1{packe Q.5D Take [address] ine 2-04 02-04 t} packet by [employer] (KokoChiRAN) 00:00: 23:59 mouth 2 Med ical 4 gram PwPk 00 :00 (two) Center packet times daily. nystatin 2022- No Q.5D Apply [facility] (MYCOSTATIN 2-04 02-04 topically Susanna kes ) 100,000 00:00: 23:59 2 (two) Medi cj unit/gram 00 :00 times Center powder daily. cholestyram 2022- No 1{packe Q.5D Take [address] ine 2-04 02-04 t} packet by [employer] (KokoChiRAN) 00:00: 23:59 mouth 2 Med ical 4 gram PwPk 00 :00 (two) Center packet times daily. nystatin 2022- No Q.5D Apply [facility] (MYCOSTATIN 2-04 02-04 topically Susanna kes ) 100,000 00:00: 23:59 2 (two) Medi cj unit/gram 00 :00 times Center powder daily. cholestyram 2022- No 1{packe Q.5D Take [address] ine 2-04 02-04 t} packet by [employer] (KokoChiRAN) 00:00: 23:59 mouth 2 Med ical 4 gram PwPk 00 :00 (two) Center packet times daily. nystatin 2022- No Q.5D Apply [facility] (MYCOSTATIN 2-04 02-04 topically Susanna kes ) 100,000 00:00: 23:59 2 (two) Medi cj unit/gram 00 :00 times Center powder daily. cholestyram 2022- No 1{packe Q.5D Take [address] ine 2-04 02-04 t} packet by [employer] (QUESTRAN) 00:00: 23:59 mouth 2 Med ical 4 gram PwPk 00 :00 (two) Center packet times daily. nystatin 2022- No Q.5D Apply [facility] (MYCOSTATIN 2-04 02-04 topically Susanna kes ) 100,000 00:00: 23:59 2 (two) Medi cj unit/gram 00 :00 times Center powder daily. cholestyram 2022- No 1{packe Q.5D Take [address] ine 2-04 02-04 t} packet by [employer] ([employer]oko[employer]RAN) 00:00: 23:59 mouth 2 Med ical 4 gram PwPk 00 :00 (two) Center packet times daily. nystatin 2022- No Q.5D Apply [facility] (MYCOSTATIN 2-04 02-04 topically Susanna kes ) 100,000 00:00: 23:59 2 (two) Medi cj unit/gram 00 :00 times Center powder daily. cholestyram 2022- No 1{packe Q.5D Take [address] ine 2-04 02-04 t} packet by [employer] (KokoChiRAN) 00:00: 23:59 mouth 2 Med ical 4 gram PwPk 00 :00 (two) Center packet times daily. nystatin 2022- No Q.5D Apply [facility] (MYCOSTATIN 2-04 02-04 topically Susanna kes ) 100,000 00:00: 23:59 2 (two) Medi cj unit/gram 00 :00 times Center powder daily. cholestyram 2022- No 1{packe Q.5D Take [address] ine 2-04 02-04 t} packet by [employer] (KokoChiRAN) 00:00: 23:59 mouth 2 Med ical 4 [...] hours or as directed by . lidocaine 2021-2021- No 1{patch Q24H Place [address] (LIDODERM) 09-15-06 } patch onto Susanna kes 5 % patch 00:00: 23:59 the skin Med ical 00 :00 daily for Center 30 days Remove & Discard patch within 12 hours or as directed by . lidocaine 2021-2021- No 1{patch Q24H Place [address] (LIDODERM) 2 03-06 } patch onto Susanna kes 5 % patch 00:00: 23:59 the skin Med ical 00 :00 daily for Center 30 days Remove & Discard patch within 12 hours or as directed by MD. fidaxomicin 2-0 2- No 200mg Take 1 [...] St ine 2-04 02-04 t} packet by [employer] (QUESTRAN) 00:00: 00:00 mouth 2 Med ical 4 gram PwPk 00 :00 (two) Center packet times daily. fidaxomicin 2021-0 2021- No 200mg Take [address] 200 mg Tab 2-04 tablet [facility]ukes 00:00: 00:00 (200 mg Medical [...] or as directed by . cholestyram 2021-0 2021- No 1{packe Q.5D Take [address] ine 2-04 02-04 t} packet by [facility] (QUESTRAN) 00:00: 00:00 mouth 2 Med ical 4 gram PwPk 00 :00 (two) Center packet times daily. fidaxomicin 2021-0 2- No 200mg Take [address] 200 mg Tab 09-1504 tablet [facility] 00:00: 00:00 (200 mg Medical [...] 1{packe Q.5D Take [address] ine 09-15 t} packet by [facility] (QUESTRAN) 00:00: 00:00 [...] Center daily as needed for Nausea. ubrogepant 2021-0 Yes 100mg Take [address] (Ubrelvy) 1-24 mg by [facility] 100 mg Tab 16:27: mouth 2 Medi cj 54 (two) Center times daily as needed. pantoprazol 2022-0 Yes 1{tbl} QD Take 1 [...] (two) Center times daily. lactulose Yes 1{packe Q.[id number] Take [address] (Kristalose 1-24 t} [id number] packet by [facility] ) 20 gram 16:27: 3D mouth 3 Medic al packet 52 (three) Center times daily. azithromyci 2021-2021- No 500mg QD Take 1 Me thodi n 08-31 01-[address] (ZITHROMAX) 00:00: 05:59 (500 [...] 1{packe Q.25D Take 1 M ethodi (Kristalose -08-25 t} packet by st ) 20 gram 18:28: 00:00 mouth 4 Hosp page packet 50 :00 (four) l times a day. Goal 2-4 bowel movements per day QUEtiapine 2021- No 50mg QD Take 50 mg Methodi (SEROqueL) -14 08-[address] 50 MG 18:28: 00:00 daily. Hospita tablet 50 :00 l gabapentin Yes 300mg Q.5D Take 300 Me thodi [...] daily as l needed for anxiety. Per [place] Prescripti on Drug Monitoring Program records: Last [...] [facility] Prescripti on Drug Monitoring Program records: Last filled: 08/09/21 Quantity: 30 Days Supply: 30 traMADoL 2021-0 Yes 50mg Q4H Take 50 mg Met hodi (ULTRAM) 50 1-[address] mg tablet 18:28: every 4 Hospi ta 48 (four) l hours as needed for moderate pain. Per [facility] on Drug Monitoring Program records: Last filled: 01/16/21 Quantity: 30 Days Supply: 5 zinc 2021-0 2022- No 1{capsu QD Take 1 [facility] sulfate -11 09-22 le} capsule by st (ZINCATE) 00:00: 05:59 mouth Hospit a 50 mg zinc 00 :00 daily for l (220 mg) 30 days. capsule thiamine 2021- No 100mg QD Take 100 Met hodi mononitrate -05 12-[address] , vit B1, 10:29: 00:00 mouth Hospit a (B-1) 100 47 :00 daily. l mg tablet QUEtiapine 2021- No 50mg QD Take 50 mg [facility] (SEROquel) 08-[address] 200 MG 10:29: 00:00 nightly. Hospit a tablet 47 :00 l SUMAtriptan Yes [id number] 50mg Q24H Take 1 [facility] (Imitrex) -10 [...] nightly for 30 days. pantoprazol 2021- No [id number] 40mg QD Take 1 Method[facility] e 08-21 [...] 20g Q.25D Take 1 Meth erasto (Kristalose 1-10 02-10 packet (20 s t ) 20 [...] 100mg Q.5D Take 1 Me thodi oin, 2-08-[address] macrocrysta 00:00: 00:00 (100 mg [...] days. methylPREDN No follow Met hodi ISolone 10-09 03-07 [...] QD Take 1 Meth erasto (TOPAMAX) 09-02 02-09 tablet (50 st 50 MG 00:00: 00:00 mg total) Hospit a tablet 00 :00 by mouth l daily. furosemide No 20mg QD Take 1 Meth erasto (LASIX) 20 08-13-08 tablet (20 st mg tablet 00:00: 00:00 [...] day for 30 days. gabapentin No 300mg Q.[id number] Take 1 [facility] (NEURONTIN) 04-[id number] 300 mg 00:00: 00:00 3D (300 mg Hospita capsule 00 :00 total) by l mouth 3 (three) times a day for 30 days. Ketorolac Ketorolac No 30mg Com mon (Toradol) (Toradol) 8-24 Spiri t per 15mg per 15mg 00:00: - [facility] Ketorolac Ketorolac 2020-0 No 30mg Com mon (Toradol) (Toradol) 8-24 Spiri t per 15mg per 15mg 00:00: - [facility] Ketorolac Ketorolac 2020-0 No 30mg Com mon (Toradol) (Toradol) 8-24 Spiri t per 15mg per 15mg 00:00: - [facility] Ketorolac Ketorolac 2020-0 No 30mg Com mon (Toradol) (Toradol) 8-24 Spiri t per 15mg per 15mg 00:00: - [facility] Ketorolac Ketorolac 2020-0 No 30mg Com mon (Toradol) (Toradol) 8-24 Spiri t per 15mg per 15mg 00:00: - [facility] Vitamin B12 Vitamin B12 2020-0 No 1000ug Common (Cyanocobal (Cyanocobal 7-24 S pirit jameson) jameson) 00:00: - [facility] Vitamin B12 Vitamin B12 2020-0 No 1000ug Common (Cyanocobal (Cyanocobal 7-24 S pirit jameson) jameson) 00:00: - [facility] Vitamin B12 Vitamin B12 2020-0 No 1000ug Common (Cyanocobal (Cyanocobal 7-24 S pirit jameson) jameson) 00:00: - [facility] Vitamin B12 Vitamin B12 2020-0 No 1000ug Common (Cyanocobal (Cyanocobal 7-24 S pirit jameson) jameson) 00:00: - [facility] Vitamin B12 Vitamin B12 2020-0 No 1000ug Common (Cyanocobal (Cyanocobal 7-24 S pirit jameson) jameson) 00:00: - [facility] pantoprazol 2020-0 2- No [id number] 40mg QD Take 1 Methodi e 6-15 -08 tablet (40 st (PROTONIX) 00:00: 00:00 mg total) H ospita 40 MG EC 00 :00 by mouth l tablet every morning. SUMAtriptan 2020-0 2- No [id number] 50mg Q24H Take 1 [facility] (Imitrex) 6-15 -08 tablet (50 st 50 MG 00:00: 00:00 [...] X 1" 00 BD Disp BD Disp 2019-1 No BD Disp Needle 25G Needle 25G 2-09 Needle 25G X 1" X 1" 00:00: X 1" 00 BD Disp BD Disp 2019-1 No BD Disp Needle 25G Needle 25G 2-09 Needle 25G X 1" X 1" 00:00: X 1" 00 BD Disp BD Disp 2019-1 No BD Disp Needle 25G Needle 25G 2-09 Needle 25G X 1" X 1" 00:00: X 1" 00 BD Disp BD Disp 2019-1 No BD Disp Needle 25G Needle 25G 2-09 Needle 25G X 1" X 1" 00:00: X 1" 00 Vitamin B12 Vitamin B12 2019-1 No 1000ug Common (Cyanocobal (Cyanocobal 2-05 S pirit jameson) jameson) 00:00: - [facility] Vitamin B12 Vitamin B12 2019-1 No 1000ug Common (Cyanocobal (Cyanocobal 2-05 S pirit jameson) jameson) 00:00: - [facility] Vitamin B12 Vitamin B12 2019-1 No 1000ug Common (Cyanocobal (Cyanocobal 2-05 S pirit jameson) jameson) 00:00: - [facility] Vitamin B12 Vitamin B12 2019-1 No 1000ug Common (Cyanocobal (Cyanocobal 2-05 S pirit jameson) jameson) 00:00: - [facility] Vitamin B12 Vitamin B12 2019-1 No 1000ug Common (Cyanocobal (Cyanocobal 2-05 S pirit jameson) jameson) 00:00: - [facility] Vitamin B12 Vitamin B12 2019-0 No 1000ug Common (Cyanocobal (Cyanocobal 8-29 S pirit jameson) jameson) 00:00: - [facility] Vitamin B12 Vitamin B12 2019-0 No 1000ug Common (Cyanocobal (Cyanocobal 8-29 S pirit jameson) jameson) 00:00: - [facility] Vitamin B12 Vitamin B12 2019-0 No 1000ug Common (Cyanocobal (Cyanocobal 8-29 S pirit jameson) jameson) 00:00: - [facility] Vitamin B12 Vitamin B12 2019-0 No 1000ug Common (Cyanocobal (Cyanocobal 8-29 S pirit jameson) jameson) 00:00: - [facility] Vitamin B12 Vitamin B12 2018-0 No 1000ug Common (Cyanocobal (Cyanocobal 8-29 S pirit jameson) jameson) 00:00: - [facility] eszopiclone 2019-0 Yes 2mg Take 2 mg U nivers 2 mg tablet 7-29 by mouth ity of 16:42: at [place] [address] bedtime. Medical Branch GABAPENTIN [id number] Yes Take by [facility] ers ORAL 7-29 mouth. ity of 16:42: [place] [address] Medical Branch traMADOL 50 0 Yes 50mg Take 50 mg Univers mg tablet 7-29 by mouth ity of 16:42: as needed [place] [address] for Pain Medical (scale Branch 7-10). eszopiclone 2019-0 Yes 2mg Take 2 mg U nivers 2 mg tablet 7-29 by mouth ity of 16:42: at [place] [address] bedtime. Medical Branch GABAPENTIN 0 Yes Take by [facility] ers ORAL 7-29 mouth. ity of 16:42: [place] [address] Medical Branch traMADOL 50 0 Yes 50mg Take 50 mg Univers mg tablet 7-29 by mouth ity of 16:42: as needed [place] [address] for Pain Medical (scale Branch 7-10). eszopiclone 2019-0 Yes 2mg Take 2 mg U nivers 2 mg tablet 7-29 by mouth ity of 16:42: at [place] [address] bedtime. Medical Branch GABAPENTIN 0 Yes Take by [facility] ers ORAL 7-29 mouth. ity of 16:42: [place] [address] Medical Branch traMADOL 50 0 Yes 50mg Take 50 mg Univers mg tablet 7-29 by mouth ity of 16:42: as needed [place] [address] for Pain Medical (scale Branch 7-10). eszopiclone 2019-0 Yes 2mg Take 2 mg U nivers 2 mg tablet 7-29 by mouth ity of 16:42: at [place] [address] bedtime. Medical Branch GABAPENTIN 0 Yes Take by Univ ers ORAL 7-29 mouth. ity of 16:42: [place] [address] Medical Branch traMADOL 50 0 Yes 50mg Take 50 mg Univers mg tablet 7-29 by mouth ity of 16:42: as needed [place] [address] for Pain Medical (scale Branch 7-10). lactulose 2019-0 Yes [id number] 20g Take 1 Un linda (KRISTALOSE 7-29 Packet by ity of ) 20 gram 00:00: mouth 3 [place] packet 00 (three) Medical times Branch daily. lactulose 2019-0 Yes [id number] 20g Take 1 Un linda (KRISTALOSE 7-29 Packet by ity of ) 20 gram 00:00: mouth 3 [place] packet 00 (three) Medical times Branch daily. lactulose 2019-0 Yes [id number] 20g Take 1 Un linda (KRISTALOSE 7-29 Packet by ity of ) 20 gram 00:00: mouth 3 [place] packet 00 (three) Medical times Branch daily. lactulose 2019-0 Yes [id number] 20g Take 1 Un linda (KRISTALOSE 7-29 Packet by ity of ) 20 gram 00:00: mouth 3 [place] packet 00 (three) Medical times Branch daily. ondansetron 2018-0 Yes [id number] 8mg Take 2 Univers 4 mg tablet 4-01 tablets by it y of 00:00: mouth [place] 00 every 8 Medical (eight) Branch hours as needed for Nausea and Vomiting (N/V). ondansetron 2018-0 Yes [id number] 8mg Take 2 Univers 4 mg tablet 4-01 tablets by it y of 00:00: mouth [place] 00 every 8 Medical (eight) Branch hours as needed for Nausea and Vomiting (N/V). ondansetron 2018-0 Yes [id number] 8mg Take 2 Univers 4 mg tablet 4-01 tablets by it y of 00:00: mouth [place] 00 every 8 Medical (eight) Branch hours as needed for Nausea and Vomiting (N/V). ondansetron 2018-0 Yes [id number] 8mg Take 2 Univers 4 mg tablet 4-01 tablets by it y of 00:00: mouth [place] 00 every 8 Medical (eight) Branch hours as needed for Nausea and Vomiting (N/V). butalbital- 2018- Yes [id number] 1{capsu Take 1 Univers aspirin-caf 3-25 le} capsule by it y of feine 00:00: mouth [place] 50-325-40 00 every 4 Medical mg per (four) Branch capsule hours as needed for Pain (headache unrelieved wtih other medication s). butalbital- 2018-0 Yes [id number] 1{capsu Take 1 Univers aspirin-caf 3-25 le} capsule by it y of feine 00:00: mouth [place] 50-325-40 00 every 4 Medical mg per (four) Branch capsule hours as needed for Pain (headache unrelieved wtih other medication s). butalbital- Yes [id number] 1{capsu Take 1 Univers aspirin-caf 3-25 le} capsule by it y of feine 00:00: mouth [place] 50-325-40 00 every 4 Medical mg per (four) Branch capsule hours as needed for Pain (headache unrelieved wtih other medication s). butalbital Yes [id number] 1{capsu Take 1 Univers aspirin-caf 3-25 le} [...] MCG/ACT MCG/ACT MCG/ACT XIFAXAN 550 2016-08 Yes [id number] TAKE ONE Univers mg tablet 1-27 TABLET BY ity o f 00:00: MOUTH 2 [place] 00 TIMES A Medical DAY Branch PANTOPRAZOL 2016-08 Yes [id number] TAKE ONE Univers E 40 mg EC 1-27 TABLET BY ity of tablet 00:00: MOUTH [place] 00 EVERY DAY Medical Branch XIFAXAN 550 2016-08 Yes [id number] TAKE ONE Univers mg tablet 1-27 TABLET BY ity o f 00:00: MOUTH 2 [place] 00 TIMES A Medical DAY Branch PANTOPRAZOL 2016-08 Yes [id number] TAKE ONE Univers E 40 mg EC 1-27 TABLET BY ity of tablet 00:00: MOUTH [place] 00 EVERY DAY Medical Branch XIFAXAN 550 2016-08 Yes [id number] TAKE ONE Univers mg tablet 1-27 TABLET BY ity o f 00:00: MOUTH 2 [place] 00 TIMES A Medical DAY Branch PANTOPRAZOL 2016- Yes [id number] TAKE ONE Univers E 40 mg EC 1-27 TABLET BY ity of tablet 00:00: MOUTH [place] 00 EVERY DAY Medical Branch XIFAXAN 550 2016-08 Yes [id number] TAKE ONE Univers mg tablet 1-27 TABLET BY ity o f 00:00: MOUTH 2 [place] 00 TIMES A Medical DAY Branch PANTOPRAZOL 2016-08 Yes [id number] TAKE ONE Univers E 40 mg EC [...] by ity of tablet 00:00: mouth 3 [place] 00 (three) Medical times Branch daily. furosemide 2015-08 Yes 40mg Take 40 mg U nivers 40 mg 0-10 by mouth. ity of tablet 00:00: [place] [address] Medical Branch furosemide 2015-08 Yes 40mg Take 40 mg U nivers 40 mg 0-10 by mouth. ity of tablet 00:00: [address] furosemide 2015-08 Yes 40mg Take 40 mg U nivers 40 mg 0-10 by mouth. ity of tablet 00:00: [address] furosemide 2015-08 Yes 40mg Take 40 mg U nivers 40 mg 0-10 by mouth. ity of tablet 00:00: [address] Branch Allopurinol Allopurinol Yes Fernando 2 tablets [facility] Zofran ODT Zofran ODT No 1{table [...] 2021-04-12 Completed Universit y of Vaccine 00:00:00 [facility] Influenza Virus 2021-04-12 Completed Universit y of Vaccine 00:00:00 [facility] Influenza Virus 2021-04-12 Completed Universit y of Vaccine 00:00:00 [facility] Influenza Virus 2021-04-12 Completed Universit y of Vaccine 00:00:00 [facility] SARS-COV-2 COVID-19 2020-12-14 Completed Unive rsity of [employer]/J&J VACCINE 00:00:00 [place] [facility] SARS-COV-2 COVID-19 2020-12-14 Completed Unive rsity of YANIR[employer]/J&J VACCINE 00:00:00 [facility] SARS-COV-2 COVID-19 2020-12-14 Completed Unive rsity of YANIRA/J&J VACCINE 00:00:00 [facility] SARS-COV-2 COVID-19 2020-12-14 Completed Unive rsity of YANIRA/J&J VACCINE 00:00:00 [facility] Ketorolac (Toradol) Ketorolac (Toradol) 2020-04-04 Completed [facility] - per 15mg per 15mg 11:19:00 [facility] Ketorolac (Toradol) Ketorolac (Toradol) 2020-04-04 Completed [facility] - per 15mg per 15mg 11:19:00 [facility] Ketorolac (Toradol) Ketorolac (Toradol) 2020-04-04 Completed [facility] - per 15mg per 15mg 11:19:00 [facility] Ketorolac (Toradol) Ketorolac (Toradol) 2020-04-04 Completed [facility] - per 15mg per 15mg 11:19:00 [facility] Ketorolac (Toradol) Ketorolac (Toradol) 2020-04-04 Completed [facility] - per 15mg per 15mg 11:19:00 [facility] Ketorolac (Toradol) Ketorolac (Toradol) 2020-04-04 Completed [facility] - per 15mg per 15mg 11:19:00 [facility] Ketorolac (Toradol) Ketorolac (Toradol) 2020-04-04 Completed [facility] - per 15mg per 15mg 11:19:00 [facility] Ketorolac (Toradol) Ketorolac (Toradol) 2020-04-04 Completed [facility] - per 15mg per 15mg 11:19:00 [facility] Vitamin B12 Vitamin B12 2019-07-16 Completed [facility] - (Cyanocobalamin) (Cyanocobalamin) 13:54:00 [facility] Vitamin B12 Vitamin B12 2019-07-16 Completed Common Spiri t - (Cyanocobalamin) (Cyanocobalamin) 13:54:00 [facility] Vitamin B12 Vitamin B12 2019-07-16 Completed Common Spiri t - (Cyanocobalamin) (Cyanocobalamin) 13:54:[address] [facility] Vitamin B12 Vitamin B12 2019-07-16 Completed Common Spiri t - (Cyanocobalamin) (Cyanocobalamin) 13:54:[address] [facility] Vitamin B12 Vitamin B12 2019-07-16 Completed [facility] Spiri t - (Cyanocobalamin) (Cyanocobalamin) 13:54:[address] [facility] Vitamin B12 Vitamin B12 2019-07-16 Completed Common Spiri t - (Cyanocobalamin) (Cyanocobalamin) 13:54:[address] [facility] Vitamin B12 Vitamin B12 2019-07-16 Completed Common Spiri t - (Cyanocobalamin) (Cyanocobalamin) 13:54:[address] [facility] Vitamin B12 Vitamin B12 2019-07-16 Completed Common Spiri t - (Cyanocobalamin) (Cyanocobalamin) 13:54:[address] [facility] Vitamin B12 Vitamin B12 2019-04-09 Completed [facility] Sp[facility] t - (Cyanocobalamin) (Cyanocobalamin) 14:26:[address] [facility] Vitamin B12 Vitamin B12 2019-04-09 Completed [facility] t - (Cyanocobalamin) (Cyanocobalamin) 14:26:[address] [facility] Vitamin B12 Vitamin B12 2019-04-09 Completed [facility] Spiri t - (Cyanocobalamin) (Cyanocobalamin) 14:26:[address] [facility] Vitamin B12 Vitamin B12 2019-04-09 Completed Common Spiri t - (Cyanocobalamin) (Cyanocobalamin) 14:26:[address] [facility] Vitamin B12 Vitamin B12 2019-04-09 Completed Common Spiri t - (Cyanocobalamin) (Cyanocobalamin) 14:26:[address] [facility] Vitamin B12 Vitamin B12 2019-04-09 Completed Common Spiri t - (Cyanocobalamin) (Cyanocobalamin) 14:26:[address] [facility] Vitamin B12 Vitamin B12 2019-04-09 Completed Common Spiri t - (Cyanocobalamin) (Cyanocobalamin) 14:26:[address] [facility] Vitamin B12 Vitamin B12 2019-04-09 Completed Common Spiri t - (Cyanocobalamin) (Cyanocobalamin) 14:26:[address] [facility] Influenza (IM) 2018-04-21 Completed [facility] Preservative Free 00:00:00 Hospita l Influenza Virus 2018-04-21 Completed Universit y of Vaccine (3+ yrs) 00:00:00 [facility] dical Branch Influenza Virus 2018-04-21 Completed Universit y of Vaccine (3+ yrs) 00:00:00 [facility] Branch Influenza Virus 2018-04-21 Completed Universit y of Vaccine (3+ yrs) 00:00:00 [facility] Branch Influenza Virus 2018-04-21 Completed Universit y of Vaccine (3+ yrs) 00:00:00 [facility] dicmd Branch Pneumococcal 2016-05-08 Completed [facility] Conjugate 13-Valent 00:00:00 Hospi mateo FLUCELVAX QUAD PF 2016-05-[address] 00:00:00 Hospital Pneumococcal 13 2016-05-08 Completed Universit y of Conjugate, PCV13 00:00:00 [facility] dical (Prevnar 13) Branch Pneumococcal 13 2016-05-08 Completed Universit y of Conjugate, PCV13 00:00:00 [facility] dical (Prevnar 13) Branch Pneumococcal 13 2016-05-08 Completed Universit y of Conjugate, PCV13 00:00:00 [facility] dical (Prevnar 13) Branch Pneumococcal 13 2016-05-08 Completed Universit y of Conjugate, PCV13 00:00:00 [facility] dical (Prevnar 13) Branch Vital Signs Vital Name Observation Time Observation Value Comments Source Systolic blood 2022-11-07 17:39:00 111 mm[Hg] Univer sity of pressure [facility] Diastolic blood 2022-11-07 17:39:00 64 mm[Hg] Unive rsity of pressure [facility] Heart rate 2022-11-07 17:39:00 79 /min [facility] Body temperature 2022-11-07 17:39:00 36.5 Georgette [facility] 2022-11-07 17:39:00 18 /min [facility] Body weight 2022-11-07 17:39:00 80.287 kg [facility] Branch BMI 2022-11-07 17:39:00 35.75 kg/m2 [facility] Oxygen saturation in 2022-11-07 17:39:00 99 /min [facility] Arterial blood by [facility] Pulse oximetry Branch Systolic blood 2021-11-16 18:59:00 111 mm[Hg] Univer sity of pressure [facility] Diastolic blood 2021-11-16 18:59:00 74 mm[Hg] Unive rsity of [facility] Heart rate 2021-11-16 18:59:00 75 /min Universi ty [facility] [place] [facility] Body temperature 2021-11-16 18:59:00 36.67 Georgette [facility] height 2021-11-16 18:59:00 [facility] Body weight 2021-11-16 18:59:00 80.559 kg [facility] BMI 2021-11-16 18:59:00 35.87 kg/m2 [facility] height 2021-10-16 15:30:00 59 [in_i] [facility] weight 2021-10-16 15:30:00 176.5 [lb_av] [facility] temperature 2021-10-16 15:30:00 97.2 [degF] [facility] bmi 2021-10-16 15:30:00 35.64 kg/m2 [facility] oximetry 2021-10-16 15:30:00 100 % [facility] respiratory rate 2021-10-16 15:30:00 18 /min [facility] blood pressure 2021-10-16 15:30:00 123 mm[Hg] Common [facility] - systolic [facility] blood pressure 2021-10-16 15:30:00 65 mm[Hg] Common [facility] - diastolic [facility] height 2021-09-25 10:40:00 59 [in_i] Common [facility] weight 2021-09-25 10:40:00 190 [lb_av] Common S pirit [facility] temperature 2021-09-25 10:40:00 97.4 [degF] Common S pirit [facility] bmi 2021-09-25 10:40:00 38.37 kg/m2 Common S pirit [facility] blood pressure 2021-09-25 10:40:00 125 mm[Hg] [facility] - systolic [facility] blood pressure 2021-09-25 10:40:00 76 mm[Hg] [facility] - diastolic [facility] HEIGHT 2021-09-02 15:44:00 149.9 cm WEIGHT 2021-09-02 15:44:00 87.091 kg HEIGHT 2021-09-02 15:44:00 149.9 cm WEIGHT 2021-09-02 15:44:00 87.091 kg height 2021-04-26 10:30:00 59 [in_i] [facility] weight 2021-04-26 10:30:00 215 [lb_av] [facility] temperature 2021-04-26 10:30:00 98 [degF] Common S pirit [facility] bmi 2021-04-26 10:30:00 43.42 [facility]2 [facility] blood pressure 2021-04-26 10:30:00 121 mm[Hg] [facility] - systolic [facility] blood pressure 2021-04-26 10:30:00 70 mm[Hg] [facility] - diastolic [facility] height 2021-04-26 14:20:00 59 [in_i] [facility] weight 2021-04-26 14:20:00 215 [lb_av] Common S pirit [facility] temperature 2021-04-26 14:20:00 98 [degF] Common S pirit [facility] bmi 2021-04-26 14:20:00 43.42 kg/m2 [facility] oximetry 2021-04-26 14:20:00 100 % Common S pirit - [facility] blood pressure 2021-04-26 14:20:00 121 mm[Hg] [facility] - systolic [facility] blood pressure 2021-04-26 14:20:00 70 mm[Hg] [facility] - diastolic [facility] Systolic blood 2021-09-16 08:00:00 98 mm[Hg] [facility] Diastolic blood 2021-09-16 08:00:00 49 mm[Hg] [facility] Heart rate 2021-09-16 08:00:00 89 /min [facility] Body temperature 2021-09-16 08:00:00 36.17 Georgette [facility] Respiratory rate 2021-09-16 08:00:00 18 /min [facility] Oxygen saturation in 2021-09-16 08:00:00 99 /min [facility] Arterial blood by Medical Ce nter Pulse oximetry Systolic blood 2021-09-11 19:42:00 125 mm[Hg] [facility] Diastolic blood 2021-09-11 19:42:00 60 mm[Hg] [facility] Heart rate 2021-09-11 19:42:00 98 /min [facility] Body temperature 2021-09-11 19:42:00 35.67 Georgette [facility] Respiratory rate 2021-09-11 19:42:00 18 /min [facility] Oxygen saturation in 2021-09-11 19:42:00 100 /min [facility] Arterial blood by Medical Ce nter Pulse oximetry Body height 2021-09-02 15:44:00 149.9 cm [facility] Body weight 2021-09-02 15:44:00 87.091 kg [facility] BMI 2021-09-02 15:44:00 38.78 kg/m2 [facility] Systolic blood 2021-08-31 06:30:00 119 mm[Hg] [facility] pressure Diastolic blood 2021-08-31 06:30:00 68 mm[Hg] [facility] pressure Heart rate 2021-08-31 06:30:00 70 /min [facility] Respiratory rate 2021-08-31 06:30:00 16 /min [facility] Oxygen saturation in 2021-08-31 06:30:00 97 /min [facility] Arterial blood by Pulse oximetry Body temperature 2021-08-31 04:04:09 36.83 Georgette [facility] Body height 2021-08-31 04:04:00 149.9 cm [facility] Body weight 2021-08-31 04:04:00 89.359 kg [facility] BMI 2021-08-31 04:04:00 39.79 kg/m2 [facility] Procedures Procedure Date / Time Performing Clinician Source Performed NOTICE OF PRIVACY 2022-11-07 17:30:44 Doctor Unassigned, No [facility] PRACTICES Name Medical [place] CONSENT/REFUSAL FOR 2022-11-07 17:30:27 Doctor Unassigned, No [facility] DIAGNOSIS AND TREATMENT [facility] EXTERNAL PROVIDER RECORDS 2022-02-08 05:01:00 Doctor Unassigned, No [facility] Branch HEPATITIS A ANTIBODY, IGM 2022-01-23 15:13:00 [facility] HEPATITIS B SURFACE 2022-01-23 15:13:00 [facility] HEPATITIS B CORE ANTIBODY, 2022-01-23 15:13:00 C [facility] HEPATITIS C ANTIBODY 2022-01-23 15:13:00 [facility] HEPATIC FUNCTION PANEL 2021-09-15 05:20:00 Niya Cartagena [facility] CBC W/PLT COUNT & AUTO 2021-09-15 05:20:00 Niya Cartagena [facility] PROTHROMBIN TIME/INR 2021-09-15 05:20:00 Niya Cartagena [facility] BASIC METABOLIC PANEL 2021-09-15 05:20:00 iNya Cartagena [facility] CBC W/PLT COUNT & AUTO 2021-09-15 05:20:00 Niya Cartagena [facility] ABDOMEN/PELVIS WITHOUT 2021-09-15 00:49:00 Kendy Hall [facility] IV [facility] CBC W/PLT COUNT & AUTO 2021-09-14 08:36:00 [facility] & AUTO 2021-09-14 08:36:00 [facility] 2021-09-14 07:35:00 [facility]R 2021-09-14 07:35:00 Kaim, Niya White [facility] BASIC METABOLIC PANEL 2021-09-14 07:35:00 Kaim, Niya White C [facility] HEPATIC FUNCTION PANEL 2021-09-13 07:14:00 Kaim, Niya [facility] CBC W/PLT COUNT & AUTO 2021-09-13 07:14:00 Kaim Niyaraquel White [facility] PROTHROMBIN TIME/INR 2021-09-13 07:14:00 Kaim, Niyaraquel White [facility] BASIC METABOLIC PANEL 2021-09-13 07:14:00 Kaim, Niya White C [facility] CBC W/PLT COUNT & AUTO 2021-09-13 07:14:00 [facility] 2021-09-12 04:23:00 [facility] W/[facility] & AUTO 2021-09-12 04:23:00 Kaim, Niyaraquel White [facility] PROTHROMBIN TIME/INR 2021-09-12 04:23:00 Kaim, Niya White [facility] BASIC METABOLIC PANEL 2021-09-12 04:23:00 Kaim, Niya Cindy C [facility] MAGNESIUM 2021-09-12 04:23:00 Selma Lu [facility] VITAMIN B12 2021-09-12 04:23:00 Danelle Bradley [facility] VITAMIN D, 25-HYDROXY 2021-09-12 04:23:00 Danelle Bradley [facility] C-REACTIVE PROTEIN 2021-09-12 04:23:00 Mirna [facility] CBC W/PLT COUNT & AUTO 2021-09-12 04:23:00 Mitzi Niya [facility] HEPATIC FUNCTION PANEL 2021-09-11 05:33:00 Kaim Niya [facility] CBC W/PLT COUNT & AUTO 2021-09-11 05:33:00 Kaim [facility] PROT[facility]/INR 2021-09-11 05:33:00 KaimNiya [facility] BASIC METABOLIC PANEL 2021-09-11 05:33:00 KaimJessicae Cindy C [facility] MAGNESIUM 2021-09-11 05:33:00 Selma Lu [facility] CBC W/PLT COUNT & AUTO 2021-09-11 05:33:00 Kaim [facility] 2021-09-10 06:52:00 Kaim Niya [facility] CBC W/PLT COUNT & AUTO 2021-09-10 06:52:00 Mitzi Niya [facility] PROTHROMBIN TIME/INR 2021-09-10 06:52:00 KaimNiyaison [facility] BASIC METABOLIC PANEL 2021-09-10 06:52:00 Kaim, Niya Cindy C [facility] MAGNESIUM 2021-09-10 06:52:00 Selma Lu [facility] CBC W/PLT COUNT & AUTO 2021-09-10 06:52:00 Kaim Niya [facility] HEPATIC FUNCTION PANEL 2021-09-09 05:51:00 Kaim Niya [facility] CBC W/PLT COUNT & AUTO 2021-09-09 05:51:00 Kaim, Niya Cindy [facility] PROTHROMBIN TIME/INR 2021-09-09 05:51:00 KaNiya rm [facility] BASIC METABOLIC PANEL 2021-09-09 05:51:00 Niya Cartagena [facility] CBC W/PLT COUNT & AUTO 2021-09-09 05:51:00 Niya Cartagena [facility] (CELLAVISION MANUAL DIFF) 2021-09-09 05:51:00 Niya Cartagena [facility] AMMONIA 2021-09-08 10:54:00 Selma Lu [facility] PHOSPHORUS 2021-09-08 05:14:00 Isabella, [facility] HEPATIC FUNCTION PANEL 2021-09-08 05:14:00 [facility] W/PLT COUNT & AUTO 2021-09-08 05:14:00 [facility] PROT[facility]/INR 2021-09-08 05:14:00 Niya Cartagena [facility] BASIC METABOLIC PANEL 2021-09-08 05:14:00 Niya Cartagena [facility] CBC W/PLT COUNT & AUTO 2021-09-08 05:14:00 Niya Cartagena [facility] (CELLAVISION MANUAL DIFF) 2021-09-08 05:14:00 Niya Cartagena [facility] PHOSPHORUS 2021-09-07 05:37:00 Isabella, [facility] HEPATIC FUNCTION PANEL 2021-09-07 05:37:00 [facility] CBC W/PLT COUNT & AUTO 2021-09-07 05:37:00 Niya Cartagena [facility] PROTHROMBIN TIME/INR 2021-09-07 05:37:00 Niya Cartagena [facility] BASIC METABOLIC PANEL 2021-09-07 05:37:00 Niya Cartagena [facility] CBC W/PLT COUNT & AUTO 2021-09-07 05:37:00 Niya Cartagena [facility] (CELLAVISION MANUAL DIFF) 2021-09-07 05:37:00 Niya Cartagena on [facility] PROTHROMBIN TIME/INR 2021-09-06 06:37:00 Niya Cartagena [facility] BASIC METABOLIC PANEL 2021-09-06 06:37:00 Isabella, Mrinalini [facility] PHOSPHORUS 2021-09-06 06:37:00 Isabella, Mrinalini [facility] PROTHROMBIN TIME/INR 2021-09-05 14:31:00 Niya Cartagenaison [facility] BASIC METABOLIC PANEL 2021-09-05 14:31:00 Isabella, Mrinalini [facility] PHOSPHORUS 2021-09-05 14:31:00 Isabella, Mrinalini [facility] CBC W/PLT COUNT & AUTO 2021-09-05 14:31:00 Gianna Masonnalini C [facility] HEPATIC FUNCTION PANEL 2021-09-05 14:31:00 Isabella, Mrinalini C [facility] CBC W/PLT COUNT & AUTO 2021-09-05 14:31:00 Gianna Masonnalini C [facility] (CELLAVISION MANUAL DIFF) 2021-09-05 14:31:00 Isabella, Mrinalin i [facility] C. DIFFICILE GDH TOXIN 2021-09-04 11:52:00 Jaqueline Vitale [facility] CT ABDOMEN/PELVIS WITH IV 2021-09-04 09:03:[address] [facility] CHEST WITH IV CONTRAST 2021-09-04 09:03:00 Isabella, Mrinalin i [facility] CBC W/PLT COUNT & AUTO 2021-09-04 04:39:00 Nia Lawrence [facility] COMPREHENSIVE METABOLIC 2021-09-04 04:39:00 Nia Lawrence [facility] MAGNESIUM 2021-09-04 04:39:00 Nia Lawrence [facility] PHOSPHORUS 2021-09-04 04:39:00 Nia Lawrence [facility] CBC W/PLT COUNT & AUTO 2021-09-04 04:39:00 Nia Lawrence [facility] (CELLAVISION MANUAL DIFF) 2021-09-04 04:39:00 Nia Lawrence sa [facility] HEPATITIS A ANTIBODY, IGG 2021-09-03 12:02:00 Juve Masonin i [facility] HEPATITIS B CORE ANTIBODY, 2021-09-03 12:02:00 Juve Masoni ni [facility] TOTAL [facility] HEPATITIS B SURFACE 2021-09-03 12:02:00 Gianna Masonnalini [facility] ANTIBODY [facility] HEPATITIS B SURFACE 2021-09-03 12:02:00 Zara Mason [facility] ANTIGEN [facility] HEPATITIS C ANTIBODY 2021-09-03 12:02:00 Gianna Masonnalini [facility] CBC W/PLT COUNT & AUTO 2021-09-03 12:01:00 Nia Lawrence [facility] COMPREHENSIVE METABOLIC 2021-09-03 12:01:00 Nia Lawrence [facility] MAGNESIUM 2021-09-03 12:01:00 Nia Lawrence [facility] PHOSPHORUS 2021-09-03 12:01:00 Nia Lawrence [facility] PROTHROMBIN TIME/INR 2021-09-03 12:01:00 Jr White [facility] CBC W/PLT COUNT & AUTO 2021-09-03 12:01:00 Lawrence, Nia [facility] (CELLAVISION MANUAL DIFF) 2021-09-03 12:01:00 Nia Lawrence sa [facility] BLOOD CULTURE 2021-09-03 11:59:00 Nia Lawrence [facility] OVA AND PARASITE 2021-09-02 09:44:[address] [facility] PATHOGEN PROFILE BY PCR 2021-09-02 09:44:00 Troy Awad Bladimir il [facility] BLOOD CULTURE 2021-09-02 06:03:00 [facility] W/[facility] & AUTO 2021-09-02 06:03:00 Nia Lawrencessa [facility] COMPREHENSIVE METABOLIC 2021-09-02 06:03:00 Nia Lawrence [facility] MAGNESIUM 2021-09-02 06:03:00 Nia Lwarence [facility] PHOSPHORUS 2021-09-02 06:03:00 [facility] C-REACTIVE PROTEIN 2021-09-02 06:03:00 Nia Lawrence [facility] CBC W/PLT COUNT & AUTO 2021-09-02 06:03:00 [facility]FF[facility] 2021-09-02 06:03:00 Nia Lawrence [facility] IRON, TIBC, % SAT. 2021-09-02 06:01:00 Nia Lawrence [facility] (WITHOUT FERRITIN) [facility] VITAMIN B12 AND FOLATE 2021-09-02 06:01:[address] [facility]IN WITHOUT IV 2021-09-02 02:39:00 Nia Lawrence [facility] CONTRAST [facility] US ABDOMEN LIMITED 2021-09-02 02:09:00 [facility] 2021-09-02 01:29:00 Nia Lawrence [facility] URINALYSIS W/ REFLEX URINE 2021-09-02 01:29:00 Nia Lawrence [facility] CULTURE [facility] XR CHEST 1 VIEW PORTABLE / 2021-09-02 01:02:[address] [facility] CBC W/PLT COUNT & AUTO 2021-09-01 22:55:00 Nia Lawrence [facility] LACTIC ACID, VENOUS 2021-09-01 22:55:00 Nia Lawrence [facility] PT/APTT 2021-09-01 22:55:00 Nia Lawrence [facility] HEPATIC FUNCTION PANEL 2021-09-01 22:55:00 Nia Lawrence [facility] BASIC METABOLIC PANEL 2021-09-01 22:55:00 Nia Lawrence [facility] MAGNESIUM 2021-09-01 22:55:00 Nia Lawrence [facility] PHOSPHORUS 2021-09-01 22:55:00 Nia Lawrence [facility] CBC W/PLT COUNT & AUTO 2021-09-01 22:55:00 Nia Lawrence [facility] (CELLAVISION MANUAL DIFF) 2021-09-01 22:55:00 Nia Lawrence sa [facility] POCT-GLUCOSE METER 2021-09-01 22:36:00 Dawna Anguiano [facility] CT ABDOMEN PELVIS WO 2021-08-31 05:50:00 [facility] HC COMPLETE BLD COUNT 2021-08-31 04:21:00 Moises Bro [facility] W/AUTO DIFF [facility] COMPREHENSIVE METABOLIC 2021-08-31 04:21:00 Moises Bro [facility] PANEL [facility] LACTIC ACID, I-STAT 2021-08-31 04:21:00 Moises Bro [facility] ESTIMATED GFR 2021-08-31 04:21:00 Moises Bro [facility] [place] SPIROMETRY, DIFFUSION, 2021-08-25 19:27:[address] [facility] LUNG VOLUMES, MIPS/MEPS XR CHEST 2 VW 2021-08-25 18:00[facility] 2021-08-25 17:59:56 [facility] POC GLUCOSE 2021-08-25 13:51:00 Jennifer Ghosh Ho spital SALEEM-POSEY VIRUS 2021-08-25 11:08[facility]00 [facility] HC COMPLETE BLD COUNT 2021-08-25 11:08:00 [facility] W/AUTO DIFF COMPREHENSIVE METABOLIC 2021-08-25 11:08:00 [facility] PANEL PROTHROMBIN TIME WITH INR 2021-08-25 11:08:00 [facility]FR 2021-08-25 11:08:00 Davina Jennifergeorge Corley Ho spital POC GLUCOSE 2021-08-25 03:18:00 Davina [facility] spital POC GLUCOSE 2021-08-25 00:22:00 Davina Jennifer [facility] POC GLUCOSE 2021-08-24 19:43:00 Jennifer Ghosh spital CREATININE LEVEL, URINE, 2021-08-24 18:13:00 [facility] TIMED PROTEIN, URINE, TIMED 2021-08-24 18:13:00 [facility] CORONARY 2021-08-24 16:44:00 [facility]HY [place] HC COMPLETE BLD COUNT 2021-08-24 11:01:00 [facility] W/AUTO DIFF [place] BASIC METABOLIC PANEL 2021-08-24 11:01:00 [facility] HEPATIC FUNCTION PANEL 2021-08-24 11:01:00 [facility] [place] MAGNESIUM LEVEL 2021-08-24 11:01:00 Ting Pierson, Alma lynn [facility] PROTHROMBIN TIME WITH INR 2021-08-24 11:01:00 [facility] [place] ESTIMATED GFR 2021-08-24 11:01:00 Alma Girard [place] POC GLUCOSE 2021-08-24 03:07:00 Jennifer Ghoshtal POC GLUCOSE 2021-08-24 00:11:00 Jennifer Ghosh COVID-19 QUALITATIVE 2021-08-23 22:15:00 Dayo Moeller [facility] RT-PCR POC GLUCOSE 2021-08-23 19:17:00 Jennifer Ghoshtal POC GLUCOSE 2021-08-23 14:05:00 Jennifer Ghosh HC COMPLETE BLD COUNT 2021-08-23 11:49:00 [facility] W/AUTO DIFF [facility] BASIC METABOLIC PANEL 2021-08-23 11:49:00 [facility] HEPATIC FUNCTION PANEL 2021-08-23 11:49:00 [facility] MAGNESIUM LEVEL 2021-08-23 11:49:00 Alma Girard [facility] PROTHROMBIN TIME WITH INR 2021-08-23 11:49:00 [facility] ALPHA FETOPROTEIN 2021-08-23 11:49:00 [facility] ALPHA-1 ANTITRYPSIN LEVEL 2021-08-23 11:49:00 [facility] ANTI SMOOTH MUSCLE AB 2021-08-23 11:49:00 [facility] SCREEN C-REACTIVE PROTEIN 2021-08-23 11:49:00 [facility] CANCER ANTIGEN 125 2021-08-23 11:49:00 [facility] CANCER ANTIGEN 19-9 2021-08-23 11:49:00 [facility] CARCINOEMBRYONIC ANTIGEN 2021-08-23 11:49:00 [facility] (CEA) CERULOPLASMIN LEVEL 2021-08-23 11:49:00 [facility] CORTISOL LEVEL, RANDOM 2021-08-23 11:49:00 [facility] CORTISOL, FREE BY 2021-08-23 11:49:00 [facility] ED/LC-MS/MS CYTOMEGALOVIRUS AB, IGG 2021-08-23 11:49:00 [facility] CYTOMEGALOVIRUS AB, IGM 2021-08-23 11:49:00 [facility] DRUG KIM 9, SER/THAIS, SCRN 2021-08-23 11:49:00 [facility] W/RFLX TO CONF FERRITIN LEVEL 2021-08-23 11:49:00 [facility] FIBRINOGEN 2021-08-23 11:49:00 [facility] HEPATITIS A ANTIBODY IGM 2021-08-23 11:49:00 [facility] HEPATITIS A ANTIBODY TOTAL 2021-08-23 11:49:00 [facility] HEPATITIS B CORE ANTIBODY 2021-08-23 11:49:00 [facility] TOTAL HEPATITIS B SURFACE 2021-08-23 11:49:00 [facility] ANTIBODY HEPATITIS B SURFACE 2021-08-23 11:49:00 [facility] ANTIGEN HEPATITIS C ANTIBODY 2021-08-23 11:49:00 [facility] HIV AG/AB COMBINATION 2021-08-23 11:49:00 [facility] HIV-1 RNA, QUALITATIVE TMA 2021-08-23 11:49:00 [facility] HLA TRANSPLANT EVALUATION 2021-08-23 11:49:00 [facility] LIPID PANEL 2021-08-23 11:49:00 [facility] BARBITURATES, S/P, QUANT 2021-08-23 11:49:00 [facility] PARTIAL THROMBOPLASTIN 2021-08-23 11:49:00 [facility] TIME (PTT) PHOSPHATIDYLETHANOL, BLOOD 2021-08-23 11:49:00 [facility] PHOSPHORUS LEVEL 2021-08-23 11:49:00 [facility] PREALBUMIN LEVEL 2021-08-23 11:49:00 [facility] SERUM ELECTROPHORESIS 2021-08-23 11:49:00 [facility] SYPHILIS TREPONEMA SCREEN 2021-08-23 11:49:00 [facility] WITH RPR CONFIRMATION (REVERSE ALGORITHM) T3, FREE 2021-08-23 11:49:00 [facility] TB T-SPOT 2021-08-23 11:49:00 [facility] TOTAL IRON BINDING 2021-08-23 11:49:00 [facility] CAPACITY ZINC LEVEL, SERUM 2021-08-23 11:49:00 [facility] ESTIMATED GFR 2021-08-23 11:49:00 Alma Girard shane [facility] SINGLE ANTIGEN BEADS 2021-08-23 11:49:00 [facility] C1Q CLASS 1 & 2 ANTIBODY 2021-08-23 11:49:[address] [facility] [address] CHEST WO CONTRAST 2021-08-23 04:25:00 [facility] POC GLUCOSE 2021-08-23 02:55:00 Jennifer Ghosh US CAROTID DUPLEX 2021-08-23 02:40:00 [facility] BILATERAL TTE COMPLETE, WO CONTRAST, 2021-08-22 23:47:00 [facility] W AGITATED SALINE ([id number]) US ABDOMEN COMPLETE 2021-08-22 22:30:00 [facility] ECG 12-LEAD 2021-08-22 21:31:09 [facility] POC GLUCOSE 2021-08-22 13:43:00 Jennifer Ghosh Ho spital HC COMPLETE BLD COUNT 2021-08-22 10:59:00 Ting Dangelo [facility] W/AUTO DIFF [facility] BASIC METABOLIC PANEL 2021-08-22 10:59:00 [facility] Dangelo [facility] HEPATIC FUNCTION PANEL 2021-08-22 10:59:00 [facility] MAG[facility]ESIUM LEVEL 2021-08-22 10:59:00 Alma Girard spital [place] PHOSPHORUS LEVEL 2021-08-22 10:59:00 Alma Girard ospital [place] PROTHROMBIN TIME WITH INR 2021-08-22 10:59:00 [facility] 2021-08-22 10:59:00 Alma Girard spital [place] POC GLUCOSE 2021-08-22 03:06:00 Jennifer Ghosh spital POC GLUCOSE 2021-08-22 00:27:00 Jennifer Ghosh spital POC GLUCOSE 2021-08-21 19:09:00 Jennifer Ghosh spital POC GLUCOSE 2021-08-21 13:46:00 Alma Girard spital [facility] HC COMPLETE BLD COUNT 2021-08-21 10:56:[address] [facility]/AUTO DIFF [facility] BASIC METABOLIC PANEL 2021-08-21 10:56:00 Ting Pierson [facility] HEPATIC FUNCTION PANEL 2021-08-21 10:56:00 [facility] MAGNESIUM LEVEL 2021-08-21 10:56:00 Alma Girard spital [place] PHOSPHORUS LEVEL 2021-08-21 10:56:00 Alma Girard ospital [facility] PROTHROMBIN TIME WITH INR 2021-08-21 10:56:00 [facility] 2021-08-21 10:56:00 Alma Girard spital [place] POC GLUCOSE 2021-08-21 03:20:00 Alma Girard spital [place] POC GLUCOSE 2021-08-20 14:56:00 DavinaJennifer [facility] sp[facility] HC COMPLETE BLD COUNT 2021-08-20 10:57:00 Ting Dangelo [facility] W/AUTO DIFF [facility] BASIC METABOLIC PANEL 2021-08-20 10:57:00 [facility] Dangelo [facility] HEPATIC FUNCTION PANEL 2021-08-20 10:57:00 [facility] [place] MAGNESIUM LEVEL 2021-08-20 10:57:00 Alma Girard spital [facility] PHOSPHORUS LEVEL 2021-08-20 10:57:00 Alma Girard ospital [facility] PROTHROMBIN TIME WITH INR 2021-08-20 10:57:00 [facility] EST[facility] 2021-08-20 10:57:00 Alma Girard spital [place] POC GLUCOSE 2021-08-20 02:42:00 Ting Alma Pierson spital [facility] POC GLUCOSE 2021-08-19 20:04:00 Alma Girard spital [facility] HC COMPLETE BLD COUNT 2021-08-19 11:38:[address] [facility] DIFF [facility] BASIC METABOLIC PANEL 2021-08-19 11:38:00 Ting Dangelo [facility] HEPATIC FUNCTION PANEL 2021-08-19 11:38:00 [facility] [place] MAGNESIUM LEVEL 2021-08-19 11:38:00 Alma Girard spital [facility] PHOSPHORUS LEVEL 2021-08-19 11:38:00 Alma Girard ospital [facility] PROTHROMBIN TIME WITH INR 2021-08-19 11:38:00 [facility] ESTIM[facility]FR 2021-08-19 11:38:00 Alma Girard spital [place] POC GLUCOSE 2021-08-19 03:14:00 Alma Girard spital [place] POC GLUCOSE 2021-08-18 23:30:00 Alma Girard POC GLUCOSE 2021-08-18 15:37:00 Alma Girard URINE CULTURE 2021-08-18 12:53:00 Alma Girard URINALYSIS SCREEN AND 2021-08-18 11:31:00 [facility] MICROSCOPY, WITH REFLEX TO [facility] CULTURE LACTIC ACID LEVEL, SEPSIS 2021-08-18 10:21:00 Orlando Balderrama [facility] - NOW AND REPEAT 2X EVERY 3 HOURS HC COMPLETE BLD COUNT 2021-08-18 10:21:00 [facility] W/AUTO DIFF [facility] BASIC METABOLIC PANEL 2021-08-18 10:21:00 [facility] HEPATIC FUNCTION PANEL 2021-08-18 10:21:00 [facility] MAGNESIUM LEVEL 2021-08-18 10:21:00 Alma Girard [facility] PHOSPHORUS LEVEL 2021-08-18 10:21:00 Alma Girard ospimateo [place] PROTHROMBIN TIME WITH INR 2021-08-18 10:21:00 [facility] ESTIM[facility] GFR 2021-08-18 10:21:00 Alma Girard shane [place] LACTIC ACID LEVEL, SEPSIS 2021-08-18 07:56:00 Orlando Balderrama [facility] - NOW AND REPEAT 2X EVERY 3 HOURS BLOOD CULTURE, AEROBIC & 2021-08-18 05:00:00 [facility] ANAEROBIC [facility] ECG 12-LEAD 2021-08-18 04:24:[address] [facility] ABDOMEN PELVIS WO 2021-08-18 04:19:03 [facility] HEAD WO CONTRAST 2021-08-18 04:18:21 Orlando Balderrama [facility] LACTIC ACID LEVEL, SEPSIS 2021-08-18 03:37:00 Orlando Balderrama [facility] - NOW AND REPEAT 2X EVERY 3 HOURS B NATRIURETIC PEPTIDE 2021-08-18 03:37:00 [facility] PROTHROMBIN TIME WITH INR 2021-08-18 03:20:00 [facility] AMMONIA LEVEL 2021-08-18 03:20:00 [facility] TROPONIN T 2021-08-18 03:20:00 [facility] XR CHEST 1 VW PORTABLE 2021-08-18 03:14:19 [facility] HC COMPLETE BLD COUNT 2021-08-18 03:03:00 [facility] W/AUTO DIFF COMPREHENSIVE METABOLIC 2021-08-18 03:03:00 [facility] PANEL ESTIMATED GFR 2021-08-18 03:03:00 [facility] RESPIRATORY PATHOGEN PANEL 2021-08-18 03:03:00 [facility] WITH COVID-19 RT-PCR ECG ED PRELIMINARY 2021-08-18 02:54:33 [facility] INTERPRETATION COVID-19 QUALITATIVE 2021-08-11 05:31:00 [facility] RT-PCR [facility] COMPREHENSIVE METABOLIC 2021-08-11 05:30:00 [facility] PANEL [facility] HC COMPLETE BLD COUNT 2021-08-11 05:30:00 [facility] W/AUTO DIFF [facility] LACTIC ACID, I-STAT 2021-08-11 05:30:00 [facility] ESTIMATED GFR 2021-08-11 05:30:00 [facility] ECG 12-LEAD 2021-08-11 05:15:35 [facility] URINALYSIS 2021-08-11 05:00:00 Adali, [facility] XR CHEST 1 VW PORTABLE 2021-08-11 04:27:00 Moises Bro [facility] LACTIC ACID, I-STAT 2021-06-28 22:37:00 Romero Limon [facility] URINALYSIS 2021-06-28 21:45:00 Romero Limon yusuftal HC COMPLETE BLD COUNT 2021-06-28 20:01:00 Romero Limon [facility] W/AUTO DIFF PROTHROMBIN TIME WITH INR, 2021-06-28 20:01:00 Romero Limon [facility] I-STAT COMPREHENSIVE METABOLIC 2021-06-28 20:01:00 Romero Limon [facility] PANEL LACTIC ACID, I-STAT 2021-06-28 20:01:00 Romero Limon [facility] SEDIMENTATION RATE 2021-06-28 20:01:00 Romero Limon [facility] ESTIMATED GFR 2021-06-28 20:01:00 Romero Limon shane COVID-19 QUALITATIVE 2021-06-28 20:01:00 Romero Limon [facility] RT-PCR BLOOD CULTURE, AEROBIC & 2021-06-28 20:01:00 Romero Limon [facility] ANAEROBIC HC COMPLETE BLD COUNT 2021-06-21 11:20:00 DinholleyrPierce [facility] W/AUTO DIFF [place] BASIC METABOLIC PANEL 2021-06-21 11:20:00 [facility] [place] HEPATIC FUNCTION PANEL 2021-06-21 11:20:00 [facility] MAGNESIUM LEVEL 2021-06-21 11:20:00 Pierce [facility] PROTHROMBIN TIME WITH INR 2021-06-21 11:20:00 Dinrodrigo[facility] PHOSPHORUS LEVEL 2021-06-21 11:20:00 Pierce Marshall ospital [place] ESTIMATED GFR 2021-06-21 11:20:00 DinholleyrPierce PHOSPHATIDYLETHANOL, BLOOD 2021-06-21 11:20:00 [facility] URINE DRUGS OF ABUSE 2021-06-21 10:11:00 [facility] SCREEN URINALYSIS SCREEN AND 2021-06-21 10:10:00 [facility] MICROSCOPY, WITH REFLEX TO CULTURE URINE CULTURE 2021-06-21 10:10:00 [facility] COVID-19 SEROLOGY PATIENT 2021-06-20 17:52:00 Dinakar, [facility] COVID-19 ANTI-SPIKE IGG 2021-06-20 17:52:00 Dinakar, [facility] ANTIBODY TITER [facility] HC COMPLETE BLD COUNT 2021-06-20 11:03:00 Dinakar, [facility] W/AUTO DIFF [facility] BASIC METABOLIC PANEL 2021-06-20 11:03:00 Dinakar, [facility] HEPATIC FUNCTION PANEL 2021-06-20 11:03:00 Dinakar, [facility] MAGNESIUM LEVEL 2021-06-20 11:03:00 Dinholleyr, Pierce Cisneros PROTHROMBIN TIME WITH INR 2021-06-20 11:03:00 Dinakar, [facility] PHOSPHORUS LEVEL 2021-06-20 11:03:00 Pierce Marshall ospimateo Cisneros ESTIMATED GFR 2021-06-20 11:03:00 DinholleyrPierce XR ABDOMEN 1 VW PORTABLE 2021-06-20 00:11:00 [facility] AMMONIA LEVEL 2021 11:27:00 Jennifer Ghosh HC COMPLETE BLD COUNT 2021 11:24:00 Davina [facility] W/AUTO DIFF PROTHROMBIN TIME WITH INR 2021 11:24:00 Jennifer Ghosh [facility] COMPREHENSIVE METABOLIC 2021 11:24:00 Davina [facility] PANEL PHOSPHORUS LEVEL 2021 11:24:00 Davina [facility] MAGNESIUM LEVEL 2021 11:24:00 [facility] HEMOGLOBIN A1C 2021 11:24:00 [facility] THYROID STIMULATING 2021 11:24:00 [facility] HORMONE T4 2021 11:24:00 Tati [facility]g [facility] VITAMIN D 25 HYDROXY LEVEL 2021 11:24:00 [facility] ESTIMATED GFR 2021 11:24:00 [facility] LACTIC ACID, I-STAT 2021 01:31:00 [facility] COVID-19 QUALITATIVE 2021 01:21:00 Diana Bangura [facility] RT-PCR CLOSTRIDIUM DIFFICILE 2021 00:30:[address] [facility] TOXIN ENTERIC BACTERIAL PANEL 2021 00:30:00 [facility] 2021 00:09:00 Diana Bangura Bin [facility] COMPREHENSIVE METABOLIC 2021-06-18 22:51:00 [facility] AMYLASE LEVEL 2021-06-18 22:51:00 Diana Bangura [place] [facility] ESTIMATED GFR 2021-06-18 22:51:00 Diana Bangura [place] [facility] HC COMPLETE BLD COUNT 2021-06-18 21:51:00 Diana Bangura [place] W/AUTO DIFF COMPREHENSIVE METABOLIC 2021-06-18 21:51:00 Diana Bangura Bin [facility] PANEL LACTIC ACID, I-STAT 2021-06-18 21:51:00 [facility] AMYLASE LEVEL 2021-06-18 21:51:00 Diana Bangura Bin [facility] ESTIMATED GFR 2021-06-18 21:51:00 Willem Diana [place] [facility] AMMONIA LEVEL 2021-06-18 21:47:00 Diana Bangura [facility] HC COMPLETE BLD COUNT 2021-06-02 09:45:00 [facility] W/AUTO DIFF PROTHROMBIN TIME WITH INR 2021-06-02 09:45:00 [facility] BASIC METABOLIC PANEL 2021-06-02 09:45:00 [facility] HEPATIC FUNCTION PANEL 2021-06-02 09:45:00 [facility] PHOSPHORUS LEVEL 2021-06-02 09:45:00 [facility] MAGNESIUM LEVEL 2021-06-02 09:45:00 [facility]ital ESTIMATED GFR 2021-06-02 09:45:00 [facility] US ABDOMINAL LIMITED 2021-06-01 21:06:20 Joana Ling [facility] VENIPUNC NEED PHYS 2021-06-01 14:32:45 Linda Torres [facility] SKILL,DX OR RX HC COMPLETE BLD COUNT 2021-06-01 10:30:00 [facility] W/AUTO DIFF PROTHROMBIN TIME WITH INR 2021-06-01 10:30:00 [facility] BASIC METABOLIC PANEL 2021-06-01 10:30:00 [facility] HEPATIC FUNCTION PANEL 2021-06-01 10:30:00 [facility] PHOSPHORUS LEVEL 2021-06-01 10:30:00 [facility] MAGNESIUM LEVEL 2021-06-01 10:30:00 [facility] HEMOGLOBIN A1C 2021-06-01 10:30:00 [facility] THYROID STIMULATING 2021-06-01 10:30:00 [facility] HORMONE T4 2021-06-01 10:30:00 [facility] VITAMIN D 25 HYDROXY LEVEL 2021-06-01 10:30:00 [facility] ZINC LEVEL, SERUM 2021-06-01 10:30:00 [facility] ALPHA FETOPROTEIN 2021-06-01 10:30:00 [facility] AMMONIA LEVEL 2021-06-01 10:30:00 [facility] ESTIMATED GFR 2021-06-01 10:30:00 [facility] PHOSPHATIDYLETHANOL, BLOOD 2021-06-01 10:30:00 [facility] URINE CULTURE 2021-06-01 02:48:00 [facility] BLOOD CULTURE, AEROBIC & 2021-06-01 02:43:00 [facility] ANAEROBIC BLOOD CULTURE, AEROBIC & 2021-06-01 02:42:00 [facility] ANAEROBIC URINALYSIS SCREEN AND 2021-06-01 02:40:00 [facility] MICROSCOPY, WITH REFLEX TO CULTURE URINE DRUGS OF ABUSE 2021-06-01 02:40:00 [facility] SCREEN URIC ACID LEVEL 2021-06-01 02:38:00 [facility] PROTHROMBIN TIME WITH INR 2021-06-01 02:38:00 [facility] PHOSPHORUS LEVEL 2021-06-01 02:38:00 [facility] PARTIAL THROMBOPLASTIN 2021-06-01 02:38:00 [facility] TIME (PTT) MAGNESIUM LEVEL 2021-06-01 02:38:00 [facility] HEPATIC FUNCTION PANEL 2021-06-01 02:38:00 [facility] LDH 2021-06-01 02:38:00 [facility] LACTIC ACID LEVEL 2021-06-01 02:38:00 [facility] FIBRINOGEN 2021-06-01 02:38:00 [facility] ospimateo HC COMPLETE BLD COUNT 2021-06-01 02:38:00 [facility] BASIC METABOLIC PANEL 2021-06-01 02:38:00 [facility] AMMONIA LEVEL 2021-06-01 02:38:00 Heriberto York ospital ESTIMATED GFR 2021-06-01 02:38:00 Chela [facility] ospital COVID-19 SEROLOGY PATIENT 2021-06-01 02:38:00 Chela [facility] SURVEILLANCE COVID-19 ANTI-SPIKE IGG 2021-06-01 02:38:00 Chela [facility] ANTIBODY TITER ECG 12-LEAD 2021-06-01 01:06:10 Heriberto York ospital XR ABDOMEN 1 VW PORTABLE 2021-06-01 01:06:00 Chela [facility] XR CHEST 1 VW PORTABLE 2021-06-01 01:02:00 Chela [facility] COVID-19 QUALITATIVE 2021-06-01 00:37:00 Chela [facility] RT-PCR HC COMPLETE BLD COUNT 2021-05-27 10:09:00 [facility] W/AUTO DIFF [facility] BASIC METABOLIC PANEL 2021-05-27 10:09:00 [facility] HEPATIC FUNCTION PANEL 2021-05-27 10:09:00 [facility] [place] MAGNESIUM LEVEL 2021-05-27 10:09:00 Alma Girard PHOSPHORUS LEVEL 2021-05-27 10:09:00 Alma Girard PROTHROMBIN TIME WITH INR 2021-05-27 10:09:00 [facility] 2021-05-27 10:09:00 Alma Girard VENOUS BLOOD GAS 2021-05-26 23:37:00 Nia Faustin ospimateo [place] COMPLETE BLD COUNT 2021-05-26 09:02:00 [facility] W/AUTO DIFF [place] PROTHROMBIN TIME WITH INR 2021-05-26 09:02:00 [facility] SEROLOGY PATIENT 2021-05-26 09:02:00 Abe Partida [facility] SURVEILLANCE Tom SMEAR REVIEW 2021-05-26 09:02:00 Alma Girard PHOSPHATIDYLETHANOL, BLOOD 2021-05-26 09:02:00 Palak [facility] ANTI-SPIKE IGG 2021-05-26 09:02:00 Abe Partida [facility] ANTIBODY TITER Tom BASIC METABOLIC PANEL 2021-05-26 09:00:00 [facility] HEPATIC FUNCTION PANEL 2021-05-26 09:00:00 [facility]ing [facility] MAGNESIUM LEVEL 2021-05-26 09:00:00 Alma Girard [place] PHOSPHORUS LEVEL 2021-05-26 09:00:00 Alma Girard ALPHA FETOPROTEIN 2021-05-26 09:00:00 Emma [facility] ZINC LEVEL, SERUM 2021-05-26 09:00:00 [facility] 2021-05-26 09:00:00 Alma Girard URINALYSIS SCREEN AND 2021-05-25 23:41:00 [facility] MICROSCOPY, WITH REFLEX TO [place] CULTURE URINE DRUGS OF ABUSE 2021-05-25 23:41:00 [facility] SCREEN [place] URINE CULTURE 2021-05-25 23:41:00 Alma Girard US HEPATIC 2021-05-25 20:43:26 Alma Girard US ABDOMINAL DOPPLER 2021-05-25 20:40:[address] [facility] HC COMPLETE BLD COUNT 2021-05-25 18:10:00 [facility] Dangelo [facility] W/AUTO DIFF [place] SMEAR REVIEW 2021-05-25 18:10:00 Alma Girardalo VENIPUNC NEED PHYS 2021-05-25 15:59:39 Tristin Hunt [facility] SKILL,DX OR RX CBC WITH PLATELET AND 2021-05-25 13:57:00 [facility] DIFFERENTIAL [place] COMPREHENSIVE METABOLIC 2021-05-25 13:57:00 [facility] PANEL [place] ESTIMATED GFR 2021-05-25 13:57:00 Alma Girard [place] LACTIC ACID, I-STAT 2021-05-25 00:58:00 Romero Limon [facility] COVID-19 QUALITATIVE 2021-05-25 00:00:00 Romero Limon [facility] RT-PCR CT ABDOMEN PELVIS WO 2021-05-24 23:16:57 Romero Limon [facility] CONTRAST URINALYSIS 2021-05-24 22:19:00 Romero Limon HC COMPLETE BLD COUNT 2021-05-24 22:13:00 Romero Limon [facility] W/AUTO DIFF COMPREHENSIVE METABOLIC 2021-05-24 22:13:00 Romero Limon [facility] PANEL AMYLASE LEVEL 2021-05-24 22:13:00 Romero Limon LACTIC ACID, I-STAT 2021-05-24 22:13:00 Romero Limon [facility] ESTIMATED GFR 2021-05-24 22:13:00 Romero Limon BLOOD CULTURE, AEROBIC & 2021-05-24 22:00:00 Romero Limon [facility] ANAEROBIC CBC HEMOGRAM 2020-11-23 05:55:00 Alma Girard PROTHROMBIN TIME WITH INR 2020-11-23 05:55:00 [facility] COMPREHENSIVE METABOLIC 2020-11-23 05:55:00 Ting Dangelo [facility] PANEL [place] ESTIMATED GFR 2020-11-23 05:55:00 Alma Girard spital [place] COVID-19 QUALITATIVE 2020-11-23 01:57:00 FermínBrendaWild [facility] RT-PCR [place] LACTIC ACID, I-STAT 2020-11-23 01:40:00 Romero Limon [facility] CT HEAD WO CONTRAST 2020-11-22 23:20:00 Romero Limon [facility] HC COMPLETE BLD COUNT 2020-11-22 22:53:00 Romero Limon [facility] W/AUTO DIFF COMPREHENSIVE METABOLIC 2020-11-22 22:53:00 Romero Limon [facility] PANEL LACTIC ACID, I-STAT 2020-11-22 22:53:00 Romero Limon [facility] AMMONIA LEVEL 2020-11-22 22:53:00 Romero Limon spital VENOUS BLOOD GAS 2020-11-22 22:53:00 Romero Limon H ospital ESTIMATED GFR 2020-11-22 22:53:00 Romero Limon spital XR ABDOMEN ACUTE INC CHEST 2020-11-02 22:51:00 Cliff Levy [facility] 1V ESTIMATED GFR 2020-11-02 21:55:00 [facility] HC COMPLETE BLD COUNT 2020-11-02 21:55:00 [facility] DIFF COMPREHENSIVE METABOLIC 2020-11-02 21:55:00 [facility] PANEL PROTHROMBIN TIME WITH INR 2020-11-02 21:55:00 [facility] COVID-19 QUALITATIVE 2020-11-02 21:05:00 [facility] NM BRAIN SPECT W I 123 2020-10-26 19:02:00 Cliff Levy [facility] DATSCAN HC COMPLETE BLD COUNT 2020-10-24 10:15:00 [facility] W/AUTO DIFF BASIC METABOLIC PANEL 2020-10-24 10:15:00 [facility] HEPATIC FUNCTION PANEL 2020-10-24 10:15:00 [facility] MAGNESIUM LEVEL 2020-10-24 10:15:00 [facility]ital PHOSPHORUS LEVEL 2020-10-24 10:15:00 [facility] PROTHROMBIN TIME WITH INR 2020-10-24 10:15:00 [facility] HEMOGLOBIN A1C 2020-10-24 10:15:00 [facility] THYROID STIMULATING 2020-10-24 10:15:00 [facility] HORMONE T4 2020-10-24 10:15:00 [facility] VITAMIN D 25 HYDROXY LEVEL 2020-10-24 10:15:00 [facility] ZINC LEVEL, SERUM 2020-10-24 10:15:00 [facility] ALPHA FETOPROTEIN 2020-10-24 10:15:00 [facility] ESTIMATED GFR 2020-10-24 10:15:00 [facility] URINE DRUGS OF ABUSE 2020-10-24 10:00:00 [facility] SCREEN LACTIC ACID LEVEL, SEPSIS 2020-10-24 06:20:00 [facility] - NOW AND REPEAT 2X EVERY 3 HOURS LACTIC ACID LEVEL, SEPSIS 2020-10-24 02:25:00 [facility] - NOW AND REPEAT 2X EVERY 3 HOURS XR CHEST 1 VW PORTABLE 2020-10-24 00:08:00 Rehrer, [facility] BLOOD CULTURE, AEROBIC & 2020-10-23 23:31:00 Rehrer, [facility] ANAEROBIC RESPIRATORY PATHOGEN PANEL 2020-10-23 23:31:00 Rehrer, [facility] WITH COVID-19 RT-PCR COMPREHENSIVE METABOLIC 2020-10-23 23:31:00 Rehrer, [facility] PANEL PHOSPHORUS LEVEL 2020-10-23 23:31:00 Rehrer, [facility] MAGNESIUM LEVEL 2020-10-23 23:31:00 Rehrer, [facility] LACTIC ACID LEVEL, SEPSIS 2020-10-23 23:31:00 Heriberto York [facility] - NOW AND REPEAT 2X EVERY 3 HOURS LIPASE LEVEL 2020-10-23 23:31:00 Rehrer, [facility] ESTIMATED GFR 2020-10-23 23:31:00 Rehrer, [facility] HC COMPLETE BLD COUNT 2020-10-23 23:20:00 Rehrer, [facility] W/AUTO DIFF PROTHROMBIN TIME WITH INR 2020-10-23 23:20:00 Rehrer, [facility] PARTIAL THROMBOPLASTIN 2020-10-23 23:20:00 Rehrer, [facility] TIME (PTT) AMMONIA LEVEL 2020-10-23 23:20:00 Rehrer, [facility] HC COMPLETE BLD COUNT 2020-10-10 00:05:00 Azevedo [facility] W/AUTO DIFF COMPREHENSIVE METABOLIC 2020-10-10 00:05:00 Azevedo, [facility] PANEL LACTIC ACID, I-STAT 2020-10-10 00:05:00 Fabian Azevedo [facility] AMMONIA LEVEL 2020-10-10 00:05:00 Azevedo, [facility] ESTIM[facility] GFR 2020-10-10 00:05:00 [facility] URINALYSIS 2020-10-09 23:32:00 Azevedo, [facility] ECG 12-LEAD 2020-10-09 23:18:11 Azevedo, [facility] HC COMPLETE BLD COUNT 2020-09-21 10:28:00 [facility] W/AUTO DIFF BASIC METABOLIC PANEL 2020-09-21 10:28:00 [facility] HEPATIC FUNCTION PANEL 2020-09-21 10:28:00 [facility] MAGNESIUM LEVEL 2020-09-21 10:28:00 [facility] PHOSPHORUS LEVEL 2020-09-21 10:28:00 [facility] PROTHROMBIN TIME WITH INR 2020-09-21 10:28:00 [facility] MISCELLANEOUS REFERRAL 2020-09-21 10:28:00 [facility] TEST VITAMIN B12 LEVEL 2020-09-21 10:28:00 [facility] FOLATE LEVEL 2020-09-21 10:28:00 [facility] ESTIMATED GFR 2020-09-21 10:28:00 [facility] COVID-19 QUALITATIVE 2020-09-20 20:51:00 [facility] RT-PCR Gabriel HC COMPLETE BLD COUNT 2020-09-20 12:08:00 [facility] W/AUTO DIFF BASIC METABOLIC PANEL 2020-09-20 12:08:00 [facility] HEPATIC FUNCTION PANEL 2020-09-20 12:08:00 [facility] MAGNESIUM LEVEL 2020-09-20 12:08:00 [facility] PHOSPHORUS LEVEL 2020-09-20 12:08:00 [facility] PROTHROMBIN TIME WITH INR 2020-09-20 12:08:00 [facility] HEMOGLOBIN A1C 2020-09-20 12:08:00 [facility] THYROID STIMULATING 2020-09-20 12:08:00 [facility] HORMONE T4 2020-09-20 12:08:00 [facility] VITAMIN D 25 HYDROXY LEVEL 2020-09-20 12:08:00 [facility] ZINC LEVEL, SERUM 2020-09-20 12:08:00 [facility] ALPHA FETOPROTEIN 2020-09-20 12:08:00 [facility] ESTIMATED GFR 2020-09-20 12:08:[address] [facility] CT CERVICAL SPINE WO 2020-09-20 06:50:26 Bonny Rod [facility] CONTRAST [facility] CT PELVIS WO CONTRAST 2020-09-20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 PT - CHI LEVEL 4 [facility] 2021-04-26 2021-04-26 SUB ANNUAL STLMLC STLMLC [id number] Common 00:00:00 00:00:00 MCR Spirit WELLNESS - CHI VISIT [facility] 2021-04-21 2021-04-21 (TEL) STLMLC STLMLC [id number] Co mmon 00:00:00 00:00:[address] [facility] 2021-01-13 2021-01-13 (TEL) STLMLC STLMLC [id number] Co mmon 00:00:00 00:00:00 [facility] 2020-12-13 2020-12-13 (TEL) STLMLC STLMLC [id number] Co mmon 00:00:00 00:00:00 [facility] 2020-11-28 2020-11-28 Patient Cynthiat, 1.2.840.1 [id number] Methodi 00:00:00 00:00:00 Outreach Bia 61565.1.[address] 3.430.2.7 Hospit a .3.296157 l .8 2020-11-25 2020-11-25 Patient Randal, 1.2.840.1 [id number] 71980 Methodi 00:00:00 00:00:00 Outreach Bia 01520.1.[address] 3.430.2.7 Hospit a .3.378321 l .8 2020-11-24 2020-11-24 Patient Randal, 1.2.840.1 [id number] 36481 58935 Methodi 00:00:00 00:00:00 Outreach Bia 60907.1.[address] 3.430.2.7 Hospit a .3.443085 l .8 2020-11-22 2020-11-23 Emergency [facility] 1.2.840. 1 [id number] Methodi 17:29:00 16:26:00 Baylee Girard 34778.1.[address] 3.430.2.7 Hospit a .3.583689 l .8 2020-11-22 2020-11-22 Travel 1.2.840.1 1.2.804.282 6485 [id number] Methodi 00:00:00 00:00:[address] 3.430.2.7 0.2.7.3.698 Ho spita .3.954129 084.8 l .8 2020-11-17 2020-11-17 Outpatient STLMLC STLMLC [id number] Common 00:00:00 00:00:00 [facility] 2020-11-02 2020[facility]11-02 [facility] 1.2.840.1 [id number] Methodi 16:45:00 23:59:00 Encounter Calos GarciaLaurel 27650.1.[address] 3.430.2.7 Hospit a .3.389578 l .8 2020-11-02 2020-11-02 Lab Jose 1.2.840.1 [id number] Methodi 16:00:31 16:05:31 Calos Feng 47430.1.[address] 3.430.2.7 Hospit a .3.576614 l .8 2020-11-02 2020-11-02 Travel 1.2.840.1 1.2.123.501 7218 [id number] Methodi 00:00:00 00:00:[address] 3.430.2.7 0.2.7.3.698 Ho spita .3.381565 084.8 l .8 2020-10-26 2020-10-26 [facility], 1.2.840.1 [id number] [id number] Methodi 12:51:36 23:59:00 Encounter Cliff VladLaurel 39689.1.[address] 3.430.2.7 Hospit a .3.768286 l .8 2020-10-26 2020-10-26 [facility] 1.2.840.1 [id number] Methodi 08:10:06 12:50:00 Encounter Cliff Marion 02486.1.[address] 3.430.2.7 Hospit a .3.160422 l .8 2020-10-26 2020-10-26 Travel 1.2.840.1 1.2.339.644 1833 [id number] Methodi 00:00:00 00:00:[address] 3.430.2.7 0.2.7.3.698 Ho spita .3.413139 084.8 l .8 2020-10-23 2020-10-24 [facility] 104 [id number] Methodi 17:57:00 14:46:00 Encounter Heriberto York 43935.1.[address] [facility] Baylee Pierson [facility]430.2.7 [facility] .[facility].901083 l .8 2020-10-13 2020-10-13 Travel 1.2.840.1 1.2.326.361 4098 081124 Methodi 00:00:00 00:00:[address] 3.430.2.7 0.2.7.3.698 Ho spita .3.465241 084.8 l .8 2020-10-12 2020-10-12 Transcribe Mildred 1.2.840.1 [id number] 2 [id number] Methodi 00:00:00 00:00:00 Orders Cliff Marion 40382.1.[address] 3.430.2.7 Hospit a .3.396307 l .8 2020-10-11 2020-10-11 Outpatient STLMLC STLMLC [id number] Common 00:00:00 00:00:00 [facility] 2020-10-09 2020-10-09 Emergency Azev[place], 1.2.840.1 [id number] Methodi 16:28:00 19:29:[address] Gus 3.430.2.7 Hospit a .3.005117 l .8 2020-10-03 2020-10-03 Outpatient STLMLC STLMLC [id number] Common 00:00:00 00:00:00 [facility] 2020-09-19 2020-09-21 [facility] [id number] Methodi 16:55:00 14:27:00 Encounter Heriberto York 69300.1.[address] Jennifer Ghosh 3.430.2.7 Hos lis .3.020194 l .8 2020-09-15 2020-09-15 Transcribe Jose, 1.2.840.1 [id number] [id number] Methodi 00:00:00 00:00:00 Orders Calos Feng [address]2029.1.[address] 3.430.2.7 Hospit a .[id number] l .8 2020-09-14 2020-09-14 Outpatient STLMLC STLMLC [id number] Common 00:00:00 00:00:00 [facility] 2020-08-31 2020-09-02 Inpatient ROLANDO, [facility] [id number] [place] 00:00:00 00:00:00 PIERCE 426 Method i 2020-08-10 2020-08-13 Inpatient CHELA, [facility] [id number] [place] 00:00:00 00:00:00 HERIBERTO [address] 2020-08-09 2020-08-09 Emergency NUSZEN, [facility] [id number] 75 [place] 00:00:00 00:00:00 ROMERO [address] 2020-08-08 2020-08-08 Emergency ELLE, [facility] [id number] [place] 00:00:00 00:00:00 NOBLE [address] 2020-07-27 2020-07-27 Outpatient STLMLC STLMLC [id number] Common 00:00:00 00:00:00 [facility] 2020-07-18 2020-07-18 Outpatient [facility] [id number] [place] 00:00:00 00:00:[address] 2020-07-04 2020-07-07 Inpatient JENNIFER GHOSH [facility]4 [id number] [place] 00:00:00 00:00:[address] 2020-06-28 2020-06-28 Outpatient STLMLC STLMLC [id number] Common 00:00:00 00:00:00 [facility] 2020-06-20 2020-06-20 Outpatient STLMLC STLMLC [id number] Common 00:00:00 00:00:00 [facility] 2020-05-30 2020-06-03 Inpatient JENNIFER GHOSH [facility] [id number] [place] 00:00:00 00:00:00 431 Method i 2020-05-27 2020-05-27 Outpatient YALAMANCHIL [facility] [id number] [place] 00:00:00 00:00:00 YIFAN Torres 752 Meth erasto 2020-05-20 2020-05-20 Outpatient STLMLC STLC [id number] Common 00:00:00 00:00:00 [facility] 2020-05-13 2020-05-17 Inpatient MCCARTAN, [facility] [id number] 6958 [place] 00:00:00 00:00:00 MERCY Driscoll Method i 2020-04-13 2020-04-21 Inpatient YOJANA, [facility] [id number] 65 [place] 00:00:00 00:00:00 JUNO 459 Method i 2020-04-13 2020-04-13 [facility] [id number] Common 16:02:00 16:02:[address] [facility] 2020-04-13 2020-04-13 Out[facility] [id number] Common 09:33:00 09:33:[address] [facility] 2020-04-05 2020-04-05 Out[facility] [id number] Common 09:10:00 09:10:[address] [facility] 2020-04-04 2020-04-04 Out[facility] [id number] Common 10:58:00 10:58:[address] [facility] 2020-04-04 2020-04-04 Out[facility] [id number] Common 10:00:00 10:00:[address] [facility] 2020-03-17 2020-03-19 Inpatient TING [facility] [id number] [place] 00:00:00 00:00:00 PIERSON, 082 Method i BAYLEE 2020-03-16 2020-03-16 Out[facility] [id number] Common 11:12:00 11:12:[address] [facility] 2020-03-14 2020-03-14 Outpatient JACQUELIN [facility] [id number] [place] 00:00:00 00:00:00 AHMED 426 Method i 2020-03-10 2020-03-10 [facility] [id number] Common 13:18:00 13:18:[address] [facility] 2020-03-07 2020-03-07 Out[facility] [id number] Common 16:07:00 16:07:[address] [facility] 2020-03-04 2020-03-04 Out[facility] [id number] Common 11:00:00 11:00:[address] [facility] 2020-03-04 2020-03-04 [facility] [id number] Common 11:00:00 11:00:[address] [facility] 2020-03-04 2020-03-04 Outpatient MEAGAN, [facility] [id number] [place] 00:00:00 00:00:00 JAYASIMHA 578 Meth erasto 2020-02-18 2020-02-21 Inpatient YORK, [facility] 064 [id number] [place] 00:00:00 00:00:00 HERIBERTO 304 Method i 2020-01-18 2020-01-20 Inpatient DINAKAR, [facility] [id number] 718 [place] 00:00:00 00:00:00 PIERCE 881 Method i 2020-01-07 2020-01-11 Inpatient YORK, [facility] [id number] [place] 00:00:00 00:00:00 HERIBERTO 087 Method i 2019-12-29 2019-12-29 Out[facility] [id number] Common 07:03:00 07:03:[address] [facility] - [facility] 2019-12-23 2019-12-25 Inpatient TING [facility] [id number] [place] 00:00:00 00:00:00 Reynaldo PIERSON Method i BAYLEE 2019-12-23 2019-12-23 Outpatient JACQUELIN, [facility] [id number] [place] 00:00:00 00:00:00 AHMED 960 Method i 2019-12-22 2019-12-[address] [facility] 1.2.840.114 [id number] 14:08:03 14:56:41 Visit [facility] 350.1.13.10 Surgical 4.2.7.2.686 Specialti [phone] es [address] [place] [address] 2019-12-22 2019-12-[address] [facility] 1.2.840.114 [id number] [facility] 14:08:03 14:56:41 Visit [facility] 350.1.13.10 it y of Surgical 4.2.7.2.686 Brent as Specialti [phone] Nv dical es 198 [facility] 2019-12-22 2019-12-22 Outpatient Christiana [facility] [id number] Univers 14:15:00 14:15:00 [facility] 2019-12-15 2019-12-[address] [facility] 1.2.840.114 [id number] Univers 14:57:28 15:12:28 Visit [facility] 350.1.13.10 it y of Surgical 4.2.7.2.686 Brent as Specialti [phone] Nv dical es 198 [facility] 2019-12-15 2019-12-15 Outpatient Christiana [facility] [id number] Univers 15:00:00 15:00:00 [facility] 2019-12-08 2019-12-08 [facility] 1.2.840.114 [id number] Univers 15:45:23 16:15:13 Visit [facility] 350.1.13.10 it y of Surgical 4.2.7.2.686 Brent as Specialti [id number] Nv dical es 198 [facility] 2019-12-08 2019-12-08 Outpatient R [facility] [id number] Univers 16:00:00 16:00:00 [facility] 2019-12-08 2019-12-08 Outpatient Christiana [facility] [id number] Univers 13:45:00 13:45:00 [facility] 2019-10-30 2019-10-30 Outpatient Christiana [facility] [id number] Univers 10:15:00 10:15:00 [facility] 2019-10-26 2019-10-26 Orders Doctor KIRIT 1.2.840.114 [id number] Univers 00:00:00 00:00:00 Only Unassigned, MICHAEL 350.1.13.10 ity of [place] [facility] 4.2.7.2.686 Brent as [phone] [address] 2019-10-22 2019-10-22 Outpatient Christian[facility] [id number] Univers 16:15:00 16:15:00 [facility] 2019-10-22 2019-10-[address] [facility] 1.2.840.114 [id number] Univers 10:06:57 10:56:32 Visit [facility] 350.1.13.10 it y of Surgical 4.2.7.2.686 Brent as Specialti [id number] Nv dical es 198 [facility] 2019-10-22 2019-10-22 Outpatient Crhistiana [facility] [id number] Univers 10:15:00 10:15:00 [facility] 2019-10-12 2019-10-15 Inpatient YORK, [facility] [id number] [place] 00:00:00 00:00:00 HERIBERTO [address] 2019-09-24 2019-09-[address] [facility] 1.2.840.114 [id number] Univers 11:21:26 11:41:20 Visit [facility] 350.1.13.10 it y of Surgical 4.2.7.2.686 Brent as Specialti [phone] Me dical es 198 [facility] 2019-09-24 2019-09-24 Outpatient Christiana [facility] [id number] Univers 11:15:00 11:41:20 LITA [facility] of [facility] 2019-09-01 2019-09-03 Inpatient CHELA, [facility] [id number] [place] 00:00:00 00:00:00 HERIBERTO [address] 2019-07-20 2019-07-20 Out[facility] [id number] Common 14:02:00 14:02:[address] [facility] 2019-07-16 2019-07-16 Out[facility] [id number] Common 13:15:00 13:15:[address] [facility] 2019-06-16 2019-06-18 Inpatient CHELA, [facility] [id number] [place] 00:00:00 00:00:00 HERIBERTO 382 Method i 2019-05-07 2019-05-08 Outpatient DARCY, UMAR [facility] [id number] [place] 00:00:00 00:00:00 691 Method i 2019-04-23 2019-04-23 Outpatient GALATI, [facility] [id number] 307 [place] 00:00:00 00:00:00 CAOLS 089 Method i 2019-04-23 2019-04-23 Outpatient JACQUELIN, [facility] [id number] [place] 00:00:00 00:00:00 AHMED 724 Method i 2019-04-15 2019-04-15 Out[facility] [id number] Common 14:19:00 14:19:[address] [facility] 2019-04-09 2019-04-09 Outpatient [facility] [id number] Common 14:00:00 14:00:[address] [facility] 2019-03-10 2019-03-10 Transition Bennie Ma 1.2.840.114 [id number] [facility] 00:00:00 00:00:00 of Care Anabelledison Almaguer 350.1.13.10 it y of [place] 4.2.7.2.686 [place] skel[place] [phone] [place] [address] [place] 2019-03-06 2019-03-09 [facility] Akanksha Jensen 1.2.840. 114 [id number] Univers 00:42:03 16:11:00 Encounter AshleylorenaIndra Sara Garay 350.1.13.1 0 ity [facility] 4.2.7.2.686 [place] [phone] [place] [id number] [place] 2019-01-21 2019-01-21 Emergency X BRADFORD, [facility] [id number] Univers 19:21:56 22:21:00 MARTELL ity [facility] 2018-09-09 2018-09-09 [facility] [id number] Common 14:45:00 14:45:[address] [facility] 2018-04-15 2018-04-15 [facility] [id number] Common 12:02:00 12:02:[address] [facility] 2018-02-19 2018-02-19 Out[facility] [id number] Common 15:08:00 15:08:[address] [facility] 2018-01-24 2018-01-24 Out[facility] [id number] Common 11:15:00 11:15:[address] [facility] Results Test Description Test Time Test Comments Results Result Comments Source Influenza virus A and B and 2023-01-28 18:44:34 Test Item Value Reference Range Interpretation Comme nts SARS-CoV-2 (COVID-19) RNA [Presence] in Respiratory specimen by Not detected GUSTAVO with probe detection (test code = 68989-2) Whether patient resides in a congregate care setting (test code = N o 30413-1) Date and time of symptom onset (test code = 55176-0) Unknown Whether the patient was hospitalized for condition of interest No (test code = 70299-5) Whether the patient was admitted to intensive care unit (ICU) for N o condition of interest (test code = 32366-2) 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 (test code = No 07278-7) Whether the patient has symptoms related to condition of interest N o (test code = 73505-4) status (test code = 41538-3) No PHI SAMARITAN DWBNDHBT-SyS-1 (COVID-19) RNA [Presence] in Respiratory specimen by GUSTAVO with probe [id number] 19:26:29 Test Item Value Reference Range Interpretation Comments SARS-CoV-2 (COVID-19) RNA Not detected [Presence] in Respiratory specimen by GUSTAVO with probe detection (test code = 02437-3) 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 employed in a Unknown healthcare setting (test code = 64603-5) Whether the patient has symptoms Unknown related to condition of interest (test code = 27435-0) Whether the patient was Unknown hospitalized for condition of interest (test code = 69693-8) Whether the patient was admitted Unknown to intensive care unit (ICU) for condition of interest (test code = 39196-6) Whether patient resides in a Unknown congregate care setting (test code = 48839-6) status (test code = Unknown 66134-1) Date and time of symptom onset Unknown (test code = 11539-6) PHI MICHAELSARS-CoV-2 (COVID-19) RNA [Presence] in Respiratory specimen by GUSTAVO with probe [id number] 18:27:11 Test Item Value Reference Range Interpretation Comments SARS-CoV-2 (COVID-19) RNA Not detected [Presence] in Respiratory specimen by GUSTAVO with probe detection (test code = 55192-2) 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 employed in a Unknown healthcare setting (test code = 04883-6) Whether the patient has symptoms Unknown related to condition of interest (test code = 65901-6) Whether the patient was Unknown hospitalized for condition of interest (test code = 69727-3) Whether the patient was admitted Unknown to intensive care unit (ICU) for condition of interest (test code = 67975-6) Whether patient resides in a Unknown congregate care setting (test code = 83420-7) status (test code = Unknown 38198-0) Date and time of symptom onset Unknown (test code = 15759-0) PHI MICHAELSARS-CoV-2 (COVID-19) RNA [Presence] in Respiratory specimen by GUSTAVO with probe [id number] 02:07:43 Test Item Value Reference Range Interpretation Comments SARS-CoV-2 (COVID-19) RNA Not detected [Presence] in Respiratory specimen by GUSTAVO with probe detection (test code = 82974-3) 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 employed in a Unknown healthcare setting (test code = 48424-7) Whether the patient has symptoms Unknown related to condition of interest (test code = 59154-6) Whether the patient was Unknown hospitalized for condition of interest (test code = 28538-1) Whether the patient was admitted Unknown to intensive care unit (ICU) for condition of interest (test code = 73760-8) Whether patient resides in a Unknown congregate care setting (test code = 81413-9) status (test code = Unknown 58084-7) Date and time of symptom onset Unknown (test code = 51187-4) PHI MICHAELSARS-CoV-2 (COVID-19) RNA [Presence] in Respiratory specimen by GUSTAVO with probe [id number] 21:37:35 Test Item Value Reference Range Interpretation Comments SARS-CoV-2 (COVID-19) RNA Not detected [Presence] in Respiratory specimen by GUSTAVO with probe detection (test code = 27794-2) 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 employed in a Unknown healthcare setting (test code = 42248-6) Whether the patient has symptoms Unknown related to condition of interest (test code = 62981-8) Whether the patient was Unknown hospitalized for condition of interest (test code = 38885-2) Whether the patient was admitted Unknown to intensive care unit (ICU) for condition of interest (test code = 06787-4) Whether patient resides in a Unknown congregate care setting (test code = 09323-1) status (test code = Unknown 90523-0) Date and time of symptom onset Unknown (test code = 68541-2) PHI MICHAELSARS-CoV-2 (COVID-19) RNA [Presence] in Respiratory specimen by GUSTAVO with probe [id number] 05:52:15 Test Item Value Reference Range Interpretation Comments SARS-CoV-2 (COVID-19) RNA Not detected [Presence] in Respiratory specimen by GUTSAVO with probe detection (test code = 88091-9) 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 employed in a Unknown healthcare setting (test code = 93416-4) Whether the patient has symptoms Unknown related to condition of interest (test code = 48283-0) Whether the patient was Unknown hospitalized for condition of interest (test code = 63478-2) Whether the patient was admitted Unknown to intensive care unit (ICU) for condition of interest (test code = 83030-7) Whether patient resides in a Unknown congregate care setting (test code = 92640-8) status (test code = Unknown 48052-3) Date and time of symptom onset Unknown (test code = 23274-5) PHI MICHAELSARS-CoV-2 (COVID-19) RNA [Presence] in Respiratory specimen by GUSTAVO with probe [id number] 05:19:43 Test Item Value Reference Range Interpretation Comments SARS-CoV-2 (COVID-19) RNA Not detected [Presence] in Respiratory specimen by GUSTAVO with probe detection (test code = 10985-4) 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 employed in a Unknown healthcare setting (test code = 86361-6) Whether the patient has symptoms Unknown related to condition of interest (test code = 91109-3) Whether the patient was Unknown hospitalized for condition of interest (test code = 68805-9) Whether the patient was admitted Unknown to intensive care unit (ICU) for condition of interest (test code = 30049-1) Whether patient resides in a Unknown congregate care setting (test code = 08114-9) status (test code = Unknown 59333-5) Date and time of symptom onset Unknown (test code = 25066-0) PHI MICHAELSARS-CoV-2 (COVID-19) RNA [Presence] in Respiratory specimen by GUSTAVO with probe [id number] 00:24:44 Test Item Value Reference Range Interpretation Comments SARS-CoV-2 (COVID-19) RNA Not detected [Presence] in Respiratory specimen by GUSTAVO with probe detection (test code = 64813-2) 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 employed in a Unknown healthcare setting (test code = 42176-5) Whether the patient has symptoms Unknown related to condition of interest (test code = 34082-8) Whether the patient was Unknown hospitalized for condition of interest (test code = 24840-4) Whether the patient was admitted Unknown to intensive care unit (ICU) for condition of interest (test code = 85001-7) Whether patient resides in a Unknown congregate care setting (test code = 73328-3) status (test code = Unknown 58401-2) Date and time of symptom onset Unknown (test code = 65122-0) PHI MICHAELSARS-CoV-2 (COVID-19) RNA [Presence] in Respiratory specimen by GUSTAVO with probe [id number] 07:50:50 Test Item Value Reference Range Interpretation Comments SARS-CoV-2 (COVID-19) RNA Not detected [Presence] in Respiratory specimen by GUSTAVO with probe detection (test code = 72095-9) 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 employed in a Unknown healthcare setting (test code = 16958-6) Whether the patient has symptoms Unknown related to condition of interest (test code = 23520-0) Whether the patient was Unknown hospitalized for condition of interest (test code = 20575-5) Whether the patient was admitted Unknown to intensive care unit (ICU) for condition of interest (test code = 46462-9) Whether patient resides in a Unknown congregate care setting (test code = 09080-3) status (test code = Unknown 97810-4) Date and time of symptom onset Unknown (test code = 51000-6) PHI MICHAELSARS-CoV-2 (COVID-19) RNA [Presence] in Respiratory specimen by GUSTAVO with probe [id number] 19:18:03 Test Item Value Reference Range Interpretation Comments SARS-CoV-2 (COVID-19) RNA Not detected [Presence] in Respiratory specimen by GUSTAVO with probe detection (test code = 51100-9) 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 employed in a No healthcare setting (test code = 00620-7) Whether the patient has symptoms Yes related to condition of interest (test code = 61453-0) Whether the patient was No hospitalized for condition of interest (test code = 23350-4) Whether the patient was admitted No to intensive care unit (ICU) for condition of interest (test code = 80265-4) Whether patient resides in a No congregate care setting (test code = 49855-4) status (test code = No 43987-8) Date and time of symptom onset Unknown (test code = 11372-1) PHI MICHAELSARS-CoV-2 (COVID-19) RNA [Presence] in Respiratory specimen by GUSTAVO with probe [id number] 11:44:34 Test Item Value Reference Range Interpretation Comments SARS-CoV-2 (COVID-19) RNA Not detected [Presence] in Respiratory specimen by GUSTAVO with probe detection (test code = 58170-1) 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 employed in a Unknown healthcare setting (test code = 41122-5) Whether the patient has symptoms Unknown related to condition of interest (test code = 76021-9) Whether the patient was Unknown hospitalized for condition of interest (test code = 39864-5) Whether the patient was admitted Unknown to intensive care unit (ICU) for condition of interest (test code = 96179-5) Whether patient resides in a Unknown congregate care setting (test code = 03641-7) status (test code = Unknown 67547-7) Date and time of symptom onset Unknown (test code = 03677-6) PHI MICHAELSARS-CoV-2 (COVID-19) RNA [Presence] in Respiratory specimen by GUSTAVO with probe wmtrqmupq5684-05-31 05:03:29 Test Item Value Reference Range Interpretation Comments SARS-CoV-2 (COVID-19) RNA Not detected [Presence] in Respiratory specimen by GUSTAVO with probe detection (test code = 73566-3) 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 employed in a Unknown healthcare setting (test code = 05689-7) Whether the patient has symptoms Unknown related to condition of interest (test code = 51218-1) Whether the patient was Unknown hospitalized for condition of interest (test code = 76039-7) Whether the patient was admitted Unknown to intensive care unit (ICU) for condition of interest (test code = 86999-1) Whether patient resides in a Unknown congregate care setting (test code = 00252-9) status (test code = Unknown 42698-0) Date and time of symptom onset Unknown (test code = 48752-4) PHI MICHAELSARS-CoV-2 (COVID-19) RNA [Presence] in Respiratory specimen by GUSTAVO with probe [id number] 16:50:47 Test Item Value Reference Range Interpretation Comments SARS-CoV-2 (COVID-19) RNA Not detected [Presence] in Respiratory specimen by GUSTAVO with probe detection (test code = 28765-4) 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 employed in a Unknown healthcare setting (test code = 29594-2) Whether the patient has symptoms Unknown related to condition of interest (test code = 42704-6) Whether the patient was Unknown hospitalized for condition of interest (test code = 35860-3) Whether the patient was admitted Unknown to intensive care unit (ICU) for condition of interest (test code = 19739-5) Whether patient resides in a Unknown congregate care setting (test code = 92810-6) status (test code = Unknown 43194-3) Date and time of symptom onset Unknown (test code = 31886-1) [facility] [id number] 23:01:06 Test Item Value Reference Range Interpretation Comments Hepatitis B surface Nonreactive Nonreactive antigen (test code = 5195-3) REJI (test code = REJI) Specimen is considered negative for HBsAg. Lab Interpretation (test Normal code = 30926-7) [facility] B core antibody, [id number] 23:01:06 Test Item Value Reference Range Interpretation Comments Hep B C IgM (test code = Nonreactive Nonreactive 51719-0) REJI (test code = REJI) Greenskeeper ID - ADMIN Lab Interpretation (test Normal code = 65700-6) [facility] [id number] 23:01:06 Test Item Value Reference Range Interpretation Comments Hep A IgM (test code = Nonreactive Nonreactive 92791-4) REJI (test code = REJI) Greenskeeper ID - ADMIN Lab Interpretation (test Normal code = 97839-5) [facility] [id number] 23:01:06 Test Item Value Reference Range Interpretation Comments Hepatitis C Ab (test code Nonreactive Nonreactive = 46004-0) REJI (test code = REJI) Greenskeeper ID - ADMIN Lab Interpretation (test Normal code = 65267-5) [facility] [id number] 23:01:06 Test Item Value Reference Range Interpretation Comments Hepatitis B surface Nonreactive Nonreactive antigen (test code = 5195-3) REJI (test code = REJI) Specimen is considered negative for HBsAg. Lab Interpretation (test Normal code = 04988-3) [facility] B core antibody, [id number] 23:01:06 Test Item Value Reference Range Interpretation Comments Hep B C IgM (test code = Nonreactive Nonreactive 20307-5) REJI (test code = REJI) [employer] ID - ADMIN Lab Interpretation (test Normal code = 15468-9) [facility], [id number] 23:01:06 Test Item Value Reference Range Interpretation Comments Hep A IgM (test code = Nonreactive Nonreactive 58253-3) REJI (test code = REJI) [employer]keeper ID - ADMIN Lab Interpretation (test Normal code = 87314-9) [facility] [id number] 23:01:06 Test Item Value Reference Range Interpretation Comments Hepatitis C Ab (test code Nonreactive Nonreactive = 53812-3) REJI (test code = REJI) [employer]keeper ID - ADMIN Lab Interpretation (test Normal code = 79828-9) [facility] B surface [id number] 23:01:06 Test Item Value Reference Range Interpretation Comments Hepatitis B surface Nonreactive Nonreactive antigen (test code = 5195-3) REJI (test code = REJI) Specimen is considered negative for HBsAg. Lab Interpretation (test Normal code = 41452-0) [facility] B core antibody, [id number] 23:01:06 Test Item Value Reference Range Interpretation Comments Hep B C IgM (test code = Nonreactive Nonreactive 49929-7) REJI (test code = REJI) Greenskeeper ID - ADMIN Lab Interpretation (test Normal code = 04958-6) [facility] [id number] 23:01:06 Test Item Value Reference Range Interpretation Comments Hep A IgM (test code = Nonreactive Nonreactive 24587-6) REJI (test code = REJI) Greenskeeper ID - ADMIN Lab Interpretation (test Normal code = 83485-2) [facility] [id number] 23:01:06 Test Item Value Reference Range Interpretation Comments Hepatitis C Ab (test code Nonreactive Nonreactive = 70710-5) REJI (test code = REJI) Greenskeeper ID - ADMIN Lab Interpretation (test Normal code = 33818-7) [facility] [id number] 23:01:06 Test Item Value Reference Range Interpretation Comments Hepatitis B surface Nonreactive Nonreactive antigen (test code = 5195-3) REJI (test code = REJI) Specimen is considered negative for HBsAg. Lab Interpretation (test Normal code = 14977-7) [facility] B core antibody, [id number] 23:01:06 Test Item Value Reference Range Interpretation Comments Hep B C IgM (test code = Nonreactive Nonreactive 73043-4) REJI (test code = REJI) Greenskeeper ID - ADMIN Lab Interpretation (test Normal code = 08996-5) [facility], [id number] 23:01:06 Test Item Value Reference Range Interpretation Comments Hep A IgM (test code = Nonreactive Nonreactive 51308-4) REJI (test code = REJI) Greenskeeper ID - ADMIN Lab Interpretation (test Normal code = 25836-2) [facility] [id number] 23:01:06 Test Item Value Reference Range Interpretation Comments Hepatitis C Ab (test code Nonreactive Nonreactive = 33215-8) REJI (test code = REJI) Greenskeeper ID - ADMIN Lab Interpretation (test Normal code = 83685-1) [facility] B surface [id number] 23:01:06 Test Item Value Reference Range Interpretation Comments Hepatitis B surface Nonreactive Nonreactive antigen (test code = 5195-3) REJI (test code = REJI) Specimen is considered negative for HBsAg. Lab Interpretation (test Normal code = 29828-1) [facility] B core antibody, [id number] 23:01:06 Test Item Value Reference Range Interpretation Comments Hep B C IgM (test code = Nonreactive Nonreactive 94160-7) REJI (test code = REJI) Greenskeeper ID - ADMIN Lab Interpretation (test Normal code = 55801-4) [facility] [id number] 23:01:06 Test Item Value Reference Range Interpretation Comments Hep A IgM (test code = Nonreactive Nonreactive 08742-2) REJI (test code = REJI) Greenskeeper ID - ADMIN Lab Interpretation (test Normal code = 07500-8) [facility] [id number] 23:01:06 Test Item Value Reference Range Interpretation Comments Hepatitis C Ab (test code Nonreactive Nonreactive = 07509-7) REJI (test code = REJI) Greenskeeper ID - ADMIN Lab Interpretation (test Normal code = 80311-2) [facility] [id number] 23:01:06 Test Item Value Reference Range Interpretation Comments HEPATITIS B SURFACE ANTIGEN (2) Nonreactive Nonreactive (BEAKER) (test code = 2585) Specimen is considered negative for HBsAg.HEPATITIS B CORE ANTIBODY, IGM 2022-01-23 23:01:06 Test Item Value Reference Range Interpretation Comments HEPATITIS B CORE IGM ANTIBODY Nonreactive Nonreactive (BEAKER) (test code = 645) Greenskeeper ID - ADMINHEPATITIS C [id number] 23:01:06 Test Item Value Reference Range Interpretation Comments HEPATITIS C ANTIBODY (BEAKER) Nonreactive Nonreactive (test code = 367) Greenskeeper ID - ADMINHEPATITIS A ANTIBODY, [id number] 23:01:06 Test Item Value Reference Range Interpretation Comments HEPATITIS A IGM ANTIBODY (BEAKER) Nonreactive Nonreactive (test code = 498) Greenskeeper ID - EVSYTFVBC-YpF-0 (COVID-19) RNA [Presence] in Respiratory specimen by GUSTAVO with probe [id number] 04:55:57 Test Item Value Reference Range Interpretation Comments SARS-CoV-2 (COVID-19) RNA Not detected [Presence] in Respiratory specimen by GUSTAVO with probe detection (test code = 25664-6) 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 employed in a Unknown healthcare setting (test code = 09960-5) Whether the patient has symptoms Unknown related to condition of interest (test code = 98948-1) Whether the patient was Unknown hospitalized for condition of interest (test code = 87329-9) Whether the patient was admitted Unknown to intensive care unit (ICU) for condition of interest (test code = 54260-6) Whether patient resides in a Unknown congregate care setting (test code = 69616-6) status (test code = Unknown 44296-5) Date and time of symptom onset Unknown (test code = 17467-7) PHI MICHAELSARS-CoV-2 (COVID-19) RNA [Presence] in Respiratory specimen by GUSTAVO with probe [id number] 01:48:29 Test Item Value Reference Range Interpretation Comments SARS-CoV-2 (COVID-19) RNA Not detected [Presence] in Respiratory specimen by GUSTAVO with probe detection (test code = 28362-2) 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 employed in a Unknown healthcare setting (test code = 86104-3) Whether the patient has symptoms Unknown related to condition of interest (test code = 45052-1) Whether the patient was Unknown hospitalized for condition of interest (test code = 76602-4) Whether the patient was admitted Unknown to intensive care unit (ICU) for condition of interest (test code = 52954-2) Whether patient resides in a Unknown congregate care setting (test code = 54111-9) status (test code = Unknown 74771-0) Date and time of symptom onset Unknown (test code = 15700-0) PHI MICHAELNH, [id number] 08:50:00Unlisted Reason for Exam - Click Yes and Enter Reason Below->YesUnlisted Reason for Exam->diarrhea. abdominal pain. C dif colitis.Is this for enterography?->NoWill this procedure require oral contrast?->No [facility] : 1960 Sex: FFINAL [...] MDReport Verified Date/Time: 09/15/2021 08:50:57 Basic Metabolic [id number] 07:34:36 Test Item Value Reference Range Interpretation Comments Sodium (test code = 138 meq/L 006-231 4678-2) Potassium (test code 3.7 meq/L 3.5-5.1 Specime [...] (test code = 7.5 mg/dL 8.4-10.2 L 35886-7) EGFR (test code = 83 mL/min/1.73 [place] [address]-9) NOT ACCURATE CREATININE CLEARANCE IN PREDICTING GLOMERULAR FILTRATION RATE . ESTIMATED GFR I S NOT APPLICABLE FOR DIALYSIS PATIENTS. REJI (test code = REJI) Greenskeeper ID - EOSpecimen moderately icteric Lab Interpretation Abnormal (test code = 45894-4) [facility] Metabolic [id number] 07:34:36 Test Item Value Reference Range Interpretation Comments Sodium (test code = 138 meq/L 574-830 3422-2) Potassium (test code 3.7 meq/L 3.5-5.1 Specime n = 2823-3) slightly hemolyzed Chloride (test code = 105 meq/L 98-107 2075-0) CO2 (test code = 26 meq/L 2028-04) BUN (test code = 10 mg/dL 03-01 3094-0) Creatinine (test code 0.72 mg/dL 0.57-1.25 Specim en = 2160-0) slightly hemolyzed Glucose (test code = 60 mg/dL 70-105 L 2345-7) Calcium (test code = 7.5 mg/dL 8.4-10.2 L 25921-3) EGFR (test code = 83 mL/min/1.[place] [address]-4) NOT ACCURATE CREATININE CLEARANCE IN PREDICTING GLOMERULAR FILTRATION RATE . ESTIMATED GFR I S NOT APPLICABLE FOR DIALYSIS PATIENTS. REJI (test code = REJI) Greenskeeper ID - EOSpecimen moderately icteric Lab Interpretation Abnormal (test code = 58602-1) [facility] Metabolic [id number] 07:34:36 Test Item Value Reference Range Interpretation Comments Sodium (test code = 138 meq/L 718-499 9028-2) Potassium (test code 3.7 meq/L 3.5-5.1 Specime [...] (test code = 7.5 mg/dL 8.4-10.2 L 31654-5) EGFR (test code = 83 mL/min/1.[place] [address]-6) NOT ACCURATE CREATININE CLEARANCE IN PREDICTING GLOMERULAR FILTRATION RATE . ESTIMATED GFR I S NOT APPLICABLE FOR DIALYSIS PATIENTS. REJI (test code = REJI) Greenskeeper ID - EOSpecimen moderately icteric Lab Interpretation Abnormal (test code = 56309-8) [facility] [id number] 07:34:36 Test Item Value Reference Range Interpretation [...] S NOT APPLICABLE FOR DIALYSIS PATIEN TS. Greenskeeper ID - EOSpecimen moderately ictericHepatic function [id number] 07:29:08 Test Item Value Reference Range Interpretation Comments Protein, Total (test 5.2 See_Comment L Specime n slightly code = 2885-2) hemolyzed [Automated message] The system which generated this result transmitted reference range : 6.0 - 8.3 gm/dL . The reference range was not used to interpr et this result as normal/abnormal . Albumin (test code = 2.1 g/dL 3.5-5.0 L Specime n slightly 69693-2) hemolyzed Total Bilirubin (test 3.9 mg/dL 0.2-1.2 [...] 1742-6) hemolyzed REJI (test code = REJI) Greenskeeper ID - EOSpecimen moderately icteric Lab Interpretation Abnormal (test code = 71493-2) [facility] [id number] 07:29:08 Test Item Value Reference Range Interpretation Comments Protein, Total (test 5.2 See_Comment L Specime n slightly code = 2885-2) hemolyzed [Automated message] The system which generated this result transmitted reference range : 6.0 - 8.3 gm/dL . The reference range was not used to interpr et this result as normal/abnormal . Albumin (test code = 2.1 g/dL 3.5-5.0 L Specime n slightly 15442-3) hemolyzed Total Bilirubin (test 3.9 mg/dL 0.2-1.2 [...] 1742-6) hemolyzed REJI (test code = REJI) Greenskeeper ID - EOSpecimen moderately icteric Lab Interpretation Abnormal (test code = 31033-7) [facility] [id number] 07:29:08 Test Item Value Reference Range Interpretation Comments Protein, Total (test 5.2 See_Comment L Specime n slightly code = 2885-2) hemolyzed [Automated message] The system which generated this result transmitted reference range : 6.0 - 8.3 gm/dL . The reference range was not used to interpr et this result as normal/abnormal . Albumin (test code = 2.1 g/dL 3.5-5.0 L Specime n slightly 55088-2) hemolyzed Total Bilirubin (test 3.9 mg/dL 0.2-1.2 [...] 1742-6) hemolyzed REJI (test code = REJI) Greenskeeper ID - EOSpecimen moderately icteric Lab Interpretation Abnormal (test code = 47589-4) [facility] [id number] 07:29:08 Test Item Value Reference Range Interpretation [...] Specimen slightly (test code = 347) hemolyzed Greenskeeper ID - EOSpecimen moderately ictericProthrombin time/[id number] 06:46:58 Test Item Value Reference Interpretation Comments Range Protime (test code = 22.1 See_Comment H [Autom ated 5902-2) message] The system which generated this result transmitted reference range : 11.9 - 14.2 seconds. The reference range was not used to interpret this result as normal/abnormal . INR (test code = 1.96 See_Comment [Automated [employer]1-6) message] The system which generated this result [...] valves. Lab Interpretation Abnormal (test code = 37269-1) [facility]uraProthrombin time/[id number] 06:46:58 Test Item Value Reference Interpretation Comments Range Protime (test code = 22.1 See_Comment H [Autom ated 5902-2) message] The system which generated this result transmitted reference range : 11.9 - 14.2 seconds. The reference range was not used to interpret this result as normal/abnormal . INR (test code = 1.96 See_Comment [Automated [employer]1-6) message] The system which generated this result [...] valves. Lab Interpretation Abnormal (test code = 92633-6) [facility]throm[facility] time/[id number] 06:46:58 Test Item Value Reference Interpretation Comments [...] valves. Lab Interpretation Abnormal (test code = 63413-3) [facility]uraPROTHROMBIN TIME/[id number] 06:46:58 Test Item Value Reference Range Interpretation Comments PROTIME (BEAKER) 22.1 seconds 11.9-14.2 H (test code = 759) INR (BEAKER) (test 1.96 See_Comment [Automat ed message] code = 370) The system DOZ generated this result transmitted ref erence range: <=5.90. The reference range was not used to int erpret this result as normal/abnormal . RECOMMENDED COUMADIN/WARFARIN INR THERAPY RANGESSTANDARD DOSE: 2.0 - 3.0 Includes: PROPHYLAXIS for venous thrombosis, systemic embolization; TREATMENT for venous thrombosis and/or pulmonary embolus.HIGH RISK: Target INR is 2.5-3.5 for patients with mechanical heart valves.CBC with platelet count + automated [id number] 06:38:55 Test Item Value Reference Range Interpretation Comments WBC (test code = 6690-2) 7.9 See_Comment [A utomated message] The system DOZ generated this result transmitted ref erence range: 3.5 - 10 .5 K/L. The refe rence range was not u sed to interpret this result as normal/abnor mal. RBC (test code = 789-8) 2.53 See_Comment L [Au tomated message] The system DOZ generated this result transmitted ref erence range: 3.93 - 5 .22 M/L. The refe rence range was not u sed to interpret this result as normal/abnor mal. MCHC (test code = 786-4) 30.8 See_Comment L [A utomated message] The system DOZ generated this result transmitted ref erence range: [...] L [Aut omated message] 777-3) The system DOZ generated this result transmitted ref erence range: 150 - 45 0 K/CU MM. The referen ce range was not u sed to interpret this result as normal/abnor mal. MPV (test code = 10.6 fL 9.4-12.3 09053-4) nRBC (test code = 413) 0 See_Comment [Aut omated message] The system DOZ generated this result transmitted ref erence range: [...] See_Comment [Aut omated message] 670) The system DOZ generated this result transmitted ref erence range: 1.56 - 6 .13 K/L. The refe rence range was not u sed to interpret this result as normal/abnor mal. # Lymphs (test code = 0.99 See_Comment L [Auto mated message] 414) The system DOZ generated this result transmitted ref erence range: 1.18 - 3 .74 K/L. The refe rence range was not u sed to interpret this result as normal/abnor mal. # Monos (test code = 0.83 See_Comment H [Autom ated message] 415) The system DOZ generated this result transmitted ref erence range: 0.24 - 0 .36 K/L. The refe rence range was not u sed to interpret this result as normal/abnor mal. # Eos (test code = 416) 0.33 See_Comment [Au tomated message] The system DOZ generated this result transmitted ref erence range: 0.04 - 0 .36 K/L. The refe rence range was not u sed to interpret this result as normal/abnor mal. # Baso (test code = 417) 0.04 See_Comment [A utomated message] The system DOZ generated this result transmitted ref erence range: 0.01 - 0 .08 K/L. The refe rence range was not u sed to interpret this result as normal/abnor mal. Immature 1 % 0-1 Granulocytes-Relative (test code = 2801) Lab Interpretation (test Abnormal code = 40031-4) [facility] with platelet count + automated [id number] 06:38:55 Test Item Value Reference Range Interpretation Comments WBC (test code = 6690-2) 7.9 See_Comment [A utomated message] The system DOZ generated this result transmitted ref erence range: 3.5 - 10 .5 K/L. The refe rence range was not u sed to interpret this result as normal/abnor mal. RBC (test code = 789-8) 2.53 See_Comment L [Au tomated message] The system DOZ generated this result transmitted ref erence range: 3.93 - 5 .22 M/L. The refe rence range was not u sed to interpret this result as normal/abnor mal. MCHC (test code = 786-4) 30.8 See_Comment L [A utomated message] The system DOZ generated this result transmitted ref erence range: [...] = 96 See_Comment L [Aut omated message] 457-3) The system DOZ generated this result transmitted ref erence range: 150 - 45 0 K/CU MM. The referen ce range was not u sed to interpret this result as normal/abnor mal. MPV (test code = 10.6 fL 9.4-12.3 87633-3) nRBC (test code = 413) 0 See_Comment [Aut omated message] The system DOZ generated this result transmitted ref erence range: [...] See_Comment [Aut omated message] 670) The system DOZ generated this result transmitted ref erence range: 1.56 - 6 .13 K/L. The refe rence range was not u sed to interpret this result as normal/abnor mal. # Lymphs (test code = 0.99 See_Comment L [Auto mated message] 414) The system DOZ generated this result transmitted ref erence range: 1.18 - 3 .74 K/L. The refe rence range was not u sed to interpret this result as normal/abnor mal. # Monos (test code = 0.83 See_Comment H [Autom ated message] 415) The system DOZ generated this result transmitted ref erence range: 0.24 - 0 .36 K/L. The refe rence range was not u sed to interpret this result as normal/abnor mal. # Eos (test code = 416) 0.33 See_Comment [Au tomated message] The system DOZ generated this result transmitted ref erence range: 0.04 - 0 .36 K/L. The refe rence range was not u sed to interpret this result as normal/abnor mal. # Baso (test code = 417) 0.04 See_Comment [A utomated message] The system DOZ generated this result transmitted ref erence range: 0.01 - 0 .08 K/L. The refe rence range was not u sed to interpret this result as normal/abnor mal. Immature 1 % 0-1 Granulocytes-Relative (test code = 2801) Lab Interpretation (test Abnormal code = 89731-6) [facility] with platelet count + automated [id number] 06:38:55 Test Item Value Reference Range Interpretation Comments WBC (test code = 6690-2) 7.9 See_Comment [A utomated message] The system DOZ generated this result transmitted ref erence range: 3.5 - 10 .5 K/L. The refe rence range was not u sed to interpret this result as normal/abnor mal. RBC (test code = 789-8) 2.53 See_Comment L [Au tomated message] The system DOZ generated this result transmitted ref erence range: 3.93 - 5 .22 M/L. The refe rence range was not u sed to interpret this result as normal/abnor mal. MCHC (test code = 786-4) 30.8 See_Comment L [A utomated message] The system DOZ generated this result transmitted ref erence range: [...] L [Aut omated message] 777-3) The system DOZ generated this result transmitted ref erence range: 150 - 45 0 K/CU MM. The referen ce range was not u sed to interpret this result as normal/abnor mal. MPV (test code = 10.6 fL 9.4-12.3 37654-3) nRBC (test code = 413) 0 See_Comment [Aut omated message] The system DOZ generated this result transmitted ref erence range: [...] See_Comment [Aut omated message] 670) The system DOZ generated this result transmitted ref erence range: 1.56 - 6 .13 K/L. The refe rence range was not u sed to interpret this result as normal/abnor mal. # Lymphs (test code = 0.99 See_Comment L [Auto mated message] 414) The system DOZ generated this result transmitted ref erence range: 1.18 - 3 .74 K/L. The refe rence range was not u sed to interpret this result as normal/abnor mal. # Monos (test code = 0.83 See_Comment H [Autom ated message] 415) The system DOZ generated this result transmitted ref erence range: 0.24 - 0 .36 K/L. The refe rence range was not u sed to interpret this result as normal/abnor mal. # Eos (test code = 416) 0.33 See_Comment [Au tomated message] The system DOZ generated this result transmitted ref erence range: 0.04 - 0 .36 K/L. The refe rence range was not u sed to interpret this result as normal/abnor mal. # Baso (test code = 417) 0.04 See_Comment [A utomated message] The system DOZ generated this result transmitted ref erence range: 0.01 - 0 .08 K/L. The refe rence range was not u sed to interpret this result as normal/abnor mal. Immature 1 % 0-1 Granulocytes-Relative (test code = 2801) Lab Interpretation (test Abnormal code = 90337-4) [facility] W/PLT COUNT & AUTO [id number] 06:38:55 Test Item Value Reference Range Interpretation [...] = 2801) CBC W/PLT COUNT & AUTO [id number] 10:18:58 Test Item Value Reference Range Interpretation [...] (BEAKER) (test code = 2801) BASIC METABOLIC [id number] 08:06:00 Test Item Value Reference Range Interpretation [...] S NOT APPLICABLE FOR DIALYSIS PATIEN TS. Greenskeeper ID - MARLON KENTpecimen moderately ictericHEPATIC FUNCTION [id number] 08:06:00 Test Item Value Reference Range Interpretation [...] (test code = 19 U/L 6-55 347) Greenskeeper ID - MARLON KENTpecimen moderately ictericPROTHROMBIN TIME/[id number] 07:51:15 Test Item Value Reference Range Interpretation Comments PROTIME (BEAKER) 20.6 seconds 11.9-14.2 H (test code = 759) INR (BEAKER) (test 1.80 See_Comment [Automat ed message] code = 370) The system DOZ generated this result transmitted ref erence range: <=5.90. The reference range was not used to int erpret this result as normal/abnormal . RECOMMENDED COUMADIN/WARFARIN INR THERAPY RANGESSTANDARD DOSE: 2.0 - 3.0 Includes: PROPHYLAXIS for venous thrombosis, systemic embolization; TREATMENT for venous thrombosis and/or pulmonary embolus.HIGH RISK: Target INR is 2.5-3.5 for patients with mechanical heart valves.HEPATIC FUNCTION [id number] 07:41:30 Test Item Value Reference Range Interpretation [...] (test code = 21 U/L 6-55 347) Greenskeeper ID - PIAYA LSpecimen moderately ictericBASIC METABOLIC [id number] 07:41:29 Test Item Value Reference Range Interpretation [...] S NOT APPLICABLE FOR DIALYSIS PATIEN TS. Greenskeeper ID - PIAYA LSpecimen moderately ictericPROTHROMBIN TIME/[id number] 07:34:58 Test Item Value Reference Range Interpretation Comments PROTIME (BEAKER) 19.3 seconds 11.9-14.2 H (test code = 759) INR (BEAKER) (test 1.66 See_Comment [Automat ed message] code = 370) The system DOZ generated this result transmitted ref erence range: <=5.90. The reference range was not used to int erpret this result as normal/abnormal . RECOMMENDED COUMADIN/WARFARIN INR THERAPY RANGESSTANDARD DOSE: 2.0 - 3.0 Includes: PROPHYLAXIS for venous thrombosis, systemic embolization; TREATMENT for venous thrombosis and/or pulmonary embolus.HIGH RISK: Target INR is 2.5-3.5 for patients with mechanical heart valves.CBC W/PLT COUNT & AUTO [id number] 07:30:35 Test Item Value Reference Range Interpretation [...] PERCENT (BEAKER) (test code = 2801) VITAMIN [id number] 07:00:04 Test Item Value Reference Range Interpretation Comments VITAMIN B12 (BEAKER) (test code = > pg/mL 213-816 H 774) Greenskeeper ID - ZAC WBASIC METABOLIC [id number] 06:43:51 Test Item Value Reference Range Interpretation [...] S NOT APPLICABLE FOR DIALYSIS PATIEN TS. Greenskeeper ID - ZAC WOperator ID - MARLON LSpecimen slightly ictericVITAMIN D, [id number] 05:27:33 Test Item Value Reference Range Interpretation Comments VITAMIN D 25-OH (BEAKER) (test code 4.4 ng/mL 6.6-49.9 L = 2764) Effective 05/22/2017: Reference Range ChangeNew: 6.6-49.9 ng/mL Previous: 13.0- 47.8 ng/mLRecommendedVitamin D Target Range: 30.0-40.0 ng/mLOperator ID - MARLON LC-REACTIVE [id number] 05:23:46 Test Item Value Reference Range Interpretation Comments C-REACTIVE PROTEIN (BEAKER) (test 1.00 mg/dL 0.00-0.50 H code = 676) Greenskeeper ID - ZAC [id number] 05:23:45 Test Item Value Reference Range Interpretation Comments MAGNESIUM (BEAKER) (test code = 1.6 mg/dL 1.6-2.6 627) Greenskeeper ID - ZAC WHEPATIC FUNCTION [id number] 05:23:45 Test Item Value Reference Range Interpretation [...] (test code = 17 U/L 6-55 347) Greenskeeper ID Ajay Rosales slightly ictericPROTHROMBIN TIME/[id number] 04:53:27 Test Item Value Reference Range Interpretation Comments PROTIME (BEAKER) 22.4 seconds 11.9-14.2 H (test code = 759) INR (BEAKER) (test 2.00 See_Comment [Automat ed message] code = 370) The system DOZ generated this result transmitted ref erence range: <=5.90. The reference range was not used to int erpret this result as normal/abnormal . RECOMMENDED COUMADIN/WARFARIN INR THERAPY RANGESSTANDARD DOSE: 2.0 - 3.0 Includes: PROPHYLAXIS for venous thrombosis, systemic embolization; TREATMENT for venous thrombosis and/or pulmonary embolus.HIGH RISK: Target INR is 2.5-3.5 for patients with mechanical heart valves.CBC W/PLT COUNT & AUTO [id number] 04:49:49 Test Item Value Reference Range Interpretation [...] (BEAKER) (test code = 2801) Basic Metabolic Alqyi1989-79-64 08:26:03 Test Item Value Reference Range Interpretation Comments Sodium (test code = 137 meq/L 992-494 6476-2) Potassium (test code 3.5 meq/L 3.5-5.1 = 2823-3) Chloride (test code = 109 meq/L 98-107 H 5-0) CO2 (test code = 24 meq/L 22-29 8-9) BUN (test code = 13 mg/dL 7-21 3094-0) Creatinine (test code 0.73 mg/dL 0.57-1.25 = 2160-0) Glucose (test code = 85 mg/dL 70-105 2345-7) Calcium (test code = 7.7 mg/dL 8.4-10.2 L 75116-2) EGFR (test code = 81 mL/min/1.73 [place] [address]-0) NOT ACCURATE CREATININE CLEARANCE IN PREDICTING GLOMERULAR FILTRATION RATE . ESTIMATED GFR I S NOT APPLICABLE FOR DIALYSIS PATIENTS. REJI (test code = REJI) Greenskeeper ID - MARLON Covington ID - DBSpecimen slightly icteric Lab Interpretation Abnormal (test code = 71434-7) [facility] [id number] 08:26:03 Test Item Value Reference Range Interpretation [...] S NOT APPLICABLE FOR DIALYSIS PATIEN TS. Greenskeeper ID - MARLON Coving[place] ID - DBSpecimen slightly ictericHepatic function iotng6831-04-32 07:24:45 Test Item Value Reference Range Interpretation Comments Protein, Total (test 4.9 See_Comment L [Autom ated code = 2885-2) message] The system which generated this result transmitted reference range : 6.0 - 8.3 gm/dL . The reference range was not used to interpr et this result as normal/abnormal . Albumin (test code = 2.2 g/dL 3.5-5.0 L 40778-0) Total Bilirubin (test 4.0 mg/dL 0.2-1.2 H code = 1974-2) Bilirubin, Direct 1.5 mg/dL 0.1-0.5 H (test code = 1968-7) Alkaline Phosphatase 111 U/L 40-150 (test code = 6768-6) AST (test code = 53 U/L 5-34 H 1920-8) ALT (test code = 17 U/L 6-55 1742-6) REJI (test code = REJI) Greenskeeper ID - MARLON Tothimen slightly icteric Lab Interpretation Abnormal (test code = 31064-5) [facility] 07:24:45 Test Item Value Reference Range Interpretation Comments Magnesium (test code = 1.7 mg/dL 1.6-2.6 50885-0) REJI (test code = REJI) Greenskeeper ID - MARLON L Lab Interpretation (test Normal code = 18318-7) [facility]2022-01-31 07:24:45 Test Item Value Reference Range Interpretation Comments MAGNESIUM (BEAKER) (test code = 1.7 mg/dL 1.6-2.6 627) Greenskeeper ID - MARLON LHEPATIC FUNCTION [id number] 07:24:45 Test Item Value Reference Range Interpretation [...] (test code = 17 U/L 6-55 347) Greenskeeper ID - MARLON KENTpecimekorin slightly ictericProthrombin time/ERH2717-51-95 06:40:57 Test Item Value Reference Interpretation Comments [...] valves. Lab Interpretation Abnormal (test code = 89673-9) [facility]uraPROTHROMBIN TIME/[id number] 06:40:57 Test Item Value Reference Range Interpretation Comments PROTIME (BEAKER) 22.5 seconds 11.9-14.2 H (test code = 759) INR (BEAKER) (test 2.01 See_Comment [Automat ed message] code = 370) The system DOZ generated this result transmitted ref erence range: <=5.90. The reference range was not used to int erpret this result as normal/abnormal . RECOMMENDED COUMADIN/WARFARIN INR THERAPY RANGESSTANDARD DOSE: 2.0 - 3.0 Includes: PROPHYLAXIS for venous thrombosis, systemic embolization; TREATMENT for venous thrombosis and/or pulmonary embolus.HIGH RISK: Target INR is 2.5-3.5 for patients with mechanical heart valves.CBC with platelet count + automated otzu4266-75-23 06:36:06 Test Item Value Reference Range Interpretation Comments WBC (test code = 6690-2) 10.6 See_Comment H [A utomated message] The system DOZ generated this result transmitted ref erence range: 3.5 - 10 .5 K/L. The refe rence range was not u sed to interpret this result as normal/abnor mal. RBC (test code = 789-8) 2.76 See_Comment L [Au tomated message] The system DOZ generated this result transmitted ref erence range: 3.93 - 5 .22 M/L. The refe rence range was not u sed to interpret this result as normal/abnor mal. MCHC (test code = 786-4) 31.5 See_Comment L [A utomated message] The system DOZ generated this result transmitted ref erence range: [...] L [Aut omated message] 777-3) The system DOZ generated this result transmitted ref erence range: 150 - 45 0 K/CU MM. The referen ce range was not u sed to interpret this result as normal/abnor mal. MPV (test code = 9.6 fL 9.4-12.3 60272-3) nRBC (test code = 413) 0 See_Comment [Aut omated message] The system DOZ generated this result transmitted ref erence range: [...] H [Aut omated message] 670) The system DOZ generated this result transmitted ref erence range: 1.56 - 6 .13 K/L. The refe rence range was not u sed to interpret this result as normal/abnor mal. # Lymphs (test code = 1.18 See_Comment [Auto mated message] 414) The system DOZ generated this result transmitted ref erence range: 1.18 - 3 .74 K/L. The refe rence range was not u sed to interpret this result as normal/abnor mal. # Monos (test code = 0.64 See_Comment H [Autom ated message] 415) The system DOZ generated this result transmitted ref erence range: 0.24 - 0 .36 K/L. The refe rence range was not u sed to interpret this result as normal/abnor mal. # Eos (test code = 416) 0.31 See_Comment [Au tomated message] The system DOZ generated this result transmitted ref erence range: 0.04 - 0 .36 K/L. The refe rence range was not u sed to interpret this result as normal/abnor mal. # Baso (test code = 417) 0.02 See_Comment [A utomated message] The system DOZ generated this result transmitted ref erence range: 0.01 - 0 .08 K/L. The refe rence range was not u sed to interpret this result as normal/abnor mal. Immature 1 % 0-1 Granulocytes-Relative (test code = 2801) Lab Interpretation (test Abnormal code = 20115-8) [facility] W/PLT COUNT & AUTO [id number] 06:36:06 Test Item Value Reference Range Interpretation [...] (BEAKER) (test code = 2801) BASIC METABOLIC [id number] 09:04:28 Test Item Value Reference Range Interpretation [...] S NOT APPLICABLE FOR DIALYSIS PATIEN TS. Greenskeeper ID - DBSpecimen moderately oitdclqLWSFTBNWL7554-33-22 08:26:10 Test Item Value Reference Range Interpretation Comments MAGNESIUM (BEAKER) (test code = 1.8 mg/dL 1.6-2.6 627) Greenskeeper ID - DBHEPATIC FUNCTION LLPRT3040-26-16 08:26:10 Test Item Value Reference Range Interpretation [...] (test code = 17 U/L 6-55 347) Greenskeeper ID - DBSpecimen moderately ictericPROTHROMBIN TIME/[id number] 07:14:13 Test Item Value Reference Range Interpretation Comments PROTIME (BEAKER) 23.1 seconds 11.9-14.2 H (test code = 759) INR (BEAKER) (test 2.08 See_Comment [Automat ed message] code = 370) The system DOZ generated this result transmitted ref erence range: <=5.90. The reference range was not used to int erpret this result as normal/abnormal . RECOMMENDED COUMADIN/WARFARIN INR THERAPY RANGESSTANDARD DOSE: 2.0 - 3.0 Includes: PROPHYLAXIS for venous thrombosis, systemic embolization; TREATMENT for venous thrombosis and/or pulmonary embolus.HIGH RISK: Target INR is 2.5-3.5 for patients with mechanical heart valves.CBC W/PLT COUNT & AUTO [id number] 07:07:41 Test Item Value Reference Range Interpretation [...] (BEAKER) (test code = 2801) BASIC METABOLIC [id number] 09:04:18 Test Item Value Reference Range Interpretation [...] S NOT APPLICABLE FOR DIALYSIS PATIEN TS. Greenskeeper ID - DBOperator ID - DBSpecimen moderately ictericHEPATIC FUNCTION [id number] 07:53:06 Test Item Value Reference Range Interpretation [...] (test code = 16 U/L 6-55 347) Greenskeeper ID - DBSpecimen moderately ictericManual Ljqlngzbizdf8195-47-33 07:50:25 Test Item Value Reference Range Interpretation Comments % Neutros (test code = 96 % 2816) % Monos (test code = 2 % 2818) % Eos (test code = 2819) 1 % % Bands (test code = 1 % 0-10 2756) # Neutros (test code = 13.34 K/ul [...] Ovalocytes (test code = 1+ few 477) Billingsley Cells (test code = 1+ few 474) Artifact (test code = Present 3432) Platelet Conc (test code Decreased = 3438) REJI (test code = REJI) Greenskeeper ID - michaela Cutler comments: Slide comments: Lab Interpretation (test Abnormal code = 78859-8) [facility] Cepxlhptysfu7015-44-05 07:50:25 Test Item Value Reference Range Interpretation [...] Ovalocytes (test code = 1+ few 477) Billingsley Cells (test code = 1+ few 474) Artifact (test code = Present 3432) Platelet Conc (test code Decreased = 3438) REJI (test code = REJI) Greenskeeper ID - michaela balsaraUser comments: Slide comments: Lab Interpretation (test Abnormal code = 69231-7) [facility] Ioiecxhmgawy4463-12-10 07:50:25 Test Item Value Reference Range Interpretation [...] = 3438) REJI (test code = REJI) Greenskeeper ID - michaela balsaraUser comments: Slide comments: Lab Interpretation (test Abnormal code = 99488-8) [facility] Asuuwcorcjgd0687-44-97 07:50:25 Test Item Value Reference Range Interpretation [...] = 3438) REJI (test code = REJI) Greenskeeper ID - michaela Cutler comments: Slide comments: Lab Interpretation (test Abnormal code = 73129-5) [facility](CELLAVISION MANUAL DIFF)2021-09-09 07:50:25 Test Item Value Reference [...] CONCENTRATION Decreased (CELLAVISION)(BEAKER) (test code = 3438) Greenskeeper ID - michaela Cutler comments: Slide comments:CBC W/PLT COUNT & AUTO [id number] 07:50:24 Test Item Value Reference Range Interpretation [...] WBC 0-0 (test code = 413) PROTHROMBIN TIME/AHQ4357-11-82 06:28:05 Test Item Value Reference Range Interpretation Comments PROTIME (BEAKER) 24.0 seconds 11.9-14.2 H (test code = 759) INR (BEAKER) (test 2.18 See_Comment [Automat ed message] code = 370) The system DOZ generated this result transmitted ref erence range: [...] = No growth in 5 days 6463-4) [facility] - [facility]ine (Right Venipuncture) 2021-09-08 14:01:01 Test Item Value Reference Range Interpretation Comments Result (test code = No growth in 5 days 6463-4) [facility] - [facility] (Right Venipuncture) 2021-09-08 14:01:01 Test Item Value Reference Range Interpretation Comments Result (test code = No growth in 5 days 6463-4) [facility] - [facility] (Right Venipuncture) 2021-09-08 14:01:01 Test Item Value Reference Range Interpretation Comments Result (test code = No growth in 5 days 6463-4) [facility]uraBLO[facility] [id number] 14:01:01 Test Item Value Reference Range Interpretation Comments CULTURE (BEAKER) (test No growth in 5 days code = 1095) Uopfont3034-84-75 11:09:32 Test Item Value Reference Range Interpretation Comments Ammonia (test code = 35 See_Comment [Autom ated 27878-7) message] The system which generated this result transmit barron reference range : 18 - 72 mol/L . The reference range was not u sed to interpret th is result as normal/abnormal . REJI (test code = REJI) Greenskeeper ID - PIAYA L Lab Interpretation Normal (test code = 62317-4) [facility]2022-[facility] 11:09:32 Test Item Value Reference Range Interpretation Comments Ammonia (test code = 35 See_Comment [Autom ated 07931-5) message] The system which generated this result transmit barron reference range : 18 - 72 mol/L . The reference range was not u sed to interpret th is result as normal/abnormal . REJI (test code = REJI) Greenskeeper ID - PIAYA L Lab Interpretation Normal (test code = 33105-1) [facility]2022-01-28 11:09:32 Test Item Value Reference Range Interpretation Comments Ammonia (test code = 35 See_Comment [Autom ated 73959-9) message] The system which generated this result transmit barron reference range : 18 - 72 mol/L . The reference range was not u sed to interpret th is result as normal/abnormal . REJI (test code = REJI) Greenskeeper ID - MARLON L Lab Interpretation Normal (test code = 63389-2) [facility]2022-01-28 11:09:32 Test Item Value Reference Range Interpretation Comments Ammonia (test code = 35 See_Comment [Autom ated 85255-7) message] The system which generated this result transmit barron reference range : 18 - 72 mol/L . The reference range was not u sed to interpret th is result as normal/abnormal . REJI (test code = REJI) Greenskeeper ID - MARLON L Lab Interpretation Normal (test code = 96475-7) [facility]2022-01-28 11:09:32 Test Item Value Reference Range Interpretation Comments AMMONIA (BEAKER) (test code = 348) 35 mol/L 18-72 Greenskeeper ID - MARLON LCBC W/PLT COUNT & AUTO [id number] 07:57:44 Test Item Value Reference Range Interpretation [...] CONCENTRATION Decreased (CELLAVISION)(BEAKER) (test code = 3438) Greenskeeper GINA Ferguson comments: Slide comments:BASIC METABOLIC [id number] 06:46:23 Test Item Value Reference Range Interpretation [...] S NOT APPLICABLE FOR DIALYSIS PATIEN TS. Greenskeeper GINA FRANK WSpecimen slightly drmcowfYptrziixox0243-39-55 06:42:47 Test Item Value Reference Range Interpretation Comments Phosphorus (test code = 2.4 mg/dL 2.3-4.7 2777-1) REJI (test code = REJI) Greenskeeper ID - ZAC W Lab Interpretation (test Normal code = 65856-1) [facility]2022-[facility] 06:42:47 Test Item Value Reference Range Interpretation Comments Phosphorus (test code = 2.4 mg/dL 2.3-4.7 2777-1) REJI (test code = REJI) Greenskeeper ID Ajay FRANK W Lab Interpretation (test Normal code = 03842-9) [facility]2022-01-28 06:42:47 Test Item Value Reference Range Interpretation Comments Phosphorus (test code = 2.4 mg/dL 2.3-4.7 2777-1) REJI (test code = REJI) Greenskeeper ID Ajay FRANK W Lab Interpretation (test Normal code = 50577-8) [facility]2022-01-28 06:42:47 Test Item Value Reference Range Interpretation Comments Phosphorus (test code = 2.4 mg/dL 2.3-4.7 2777-1) REJI (test code = REJI) Greenskeeper ID Ajay FRANK W Lab Interpretation (test Normal code = 77609-5) [facility]2022-01-28 06:42:47 Test Item Value Reference Range Interpretation Comments PHOSPHORUS (BEAKER) (test code = 2.4 mg/dL 2.3-4.7 604) Greenskeeper GINA FRANK WHEPATIC FUNCTION [id number] 06:42:47 Test Item Value Reference Range Interpretation [...] (test code = 15 U/L 6-55 347) Greenskeeper GINA FRANK WSpecimen slightly ictericPROTHROMBIN TIME/[id number] 05:37:24 Test Item Value Reference Range Interpretation Comments PROTIME (BEAKER) 26.6 seconds 11.9-14.2 H (test code = 759) INR (BEAKER) (test 2.48 See_Comment [Automat ed message] code = 370) The system DOZ generated this result transmitted ref erence range: [...] CONCENTRATION Decreased (CELLAVISION)(BEAKER) (test code = 3438) Greenskeeper ID - Cindy Gibson comments: Slide comments:CBC W/PLT COUNT & AUTO IOSHAAKFBYMF2393-69-22 09:40:43 Test Item Value Reference Range Interpretation [...] 0-0 (test code = 413) BASIC METABOLIC [id number] 07:22:45 Test Item Value Reference Range Interpretation [...] S NOT APPLICABLE FOR DIALYSIS PATIEN TS. Greenskeeper ID - PIRADHA LSpecimen slightly yromliaQWHCNSLPSJ7552-49-88 07:16:27 Test Item Value Reference Range Interpretation Comments PHOSPHORUS (BEAKER) (test code = 2.2 mg/dL 2.3-4.7 L 604) Greenskeeper ID - MARLON LHEPATIC FUNCTION [id number] 07:16:27 Test Item Value Reference Range Interpretation [...] (test code = 17 U/L 6-55 347) Greenskeeper ID - PIAYA Iban slightly ictericBLOOD ZJDHHMO4989-41-11 07:00:33 Test Item Value Reference Range Interpretation Comments CULTURE (BEAKER) (test No growth in 5 days code = 1095) PROTHROMBIN TIME/[id number] 06:15:38 Test Item Value Reference Range Interpretation Comments PROTIME (BEAKER) 25.1 seconds 11.9-14.2 H (test code = 759) INR (BEAKER) (test 2.31 See_Comment [Automat ed message] code = 370) The system DOZ generated this result transmitted ref erence range: <=5.90. The reference range was not used to int erpret this result as normal/abnormal . RECOMMENDED COUMADIN/WARFARIN INR THERAPY RANGESSTANDARD DOSE: 2.0 - 3.0 Includes: PROPHYLAXIS for venous thrombosis, systemic embolization; TREATMENT for venous thrombosis and/or pulmonary embolus.HIGH RISK: Target INR is 2.5-3.5 for patients with mechanical heart valves.Ova and Parasite Ldutzuknheb3747-11-61 08:26:13 Test Item Value Reference Range Interpretation Comments O&P Direct Smear (test No ova or parasites No ova or code = 25719-3) seen parasites seen REJI (test code = REJI) See scanned report Lab Interpretation (test Normal code = 52878-7) [facility] Parasite Zbhocazryxp6879-95-60 08:26:13 Test Item Value Reference Range Interpretation Comments O&P Direct Smear (test No ova or parasites No ova or code = 91718-4) seen parasites seen REJI (test code = REJI) See scanned report Lab Interpretation (test Normal code = 19774-2) [facility] and Parasite Ksfrpnczvwg2276-49-91 08:26:13 Test Item Value Reference Range Interpretation Comments O&P Direct Smear (test No ova or parasites No ova or code = 60615-3) seen parasites seen REJI (test code = REJI) See scanned report Lab Interpretation (test Normal code = 07270-2) [facility] Iyvdeljnzwv4581-10-19 08:26:13 Test Item Value Reference Range Interpretation Comments O&P Direct Smear (test No ova or parasites No ova or code = 52748-0) seen parasites seen REJI (test code = REJI) See scanned report Lab Interpretation (test Normal code = 17346-7) [facility]2022-01-26 07:29:32 Test Item Value Reference Range Interpretation Comments PHOSPHORUS (BEAKER) (test code = 1.5 mg/dL 2.3-4.7 LL 604) Greenskeeper ID Ajay FRANK WBASIC METABOLIC EGMJB3187-92-37 07:09:27 Test Item Value Reference Range Interpretation [...] S NOT APPLICABLE FOR DIALYSIS PATIEN TS. Greenskeeper ID - ZAC WSpecimen slightly ictericPROTHROMBIN TIME/IOH9909-03-19 06:57:19 Test Item Value Reference Range Interpretation Comments PROTIME (BEAKER) 23.2 seconds 11.9-14.2 H (test code = 759) INR (BEAKER) (test 2.09 See_Comment [Automat ed message] code = 370) The system DOZ generated this result transmitted ref erence range: [...] CONCENTRATION Decreased (CELLAVISION)(BEAKER) (test code = 3438) Greenskeeper ID - nabil Julian comments: Slide comments:AMPQKIUNTD7022-18-26 15:08:54 Test Item Value Reference Range Interpretation Comments PHOSPHORUS (BEAKER) (test code = 1.2 mg/dL 2.3-4.7 LL 604) Greenskeeper ID - BSBASIC METABOLIC BIZZK8000-25-12 15:04:30 Test Item Value Reference Range Interpretation [...] S NOT APPLICABLE FOR DIALYSIS PATIEN TS. Greenskeeper ID - BSSpecimen slightly ictericHEPATIC FUNCTION [id number] 15:02:35 Test Item Value Reference Range Interpretation [...] (test code = 17 U/L 6-55 347) Greenskeeper ID - BSSpecimen slightly ictericPROTHROMBIN TIME/[id number] 14:50:10 Test Item Value Reference Range Interpretation Comments PROTIME (BEAKER) 24.9 seconds 11.9-14.2 H (test code = 759) INR (BEAKER) (test 2.28 See_Comment [Automat ed message] code = 370) The system DOZ generated this result transmitted ref erence range: <=5.90. The reference range was not used to int erpret this result as normal/abnormal . RECOMMENDED COUMADIN/WARFARIN INR THERAPY RANGESSTANDARD DOSE: 2.0 - 3.0 Includes: PROPHYLAXIS for venous thrombosis, systemic embolization; TREATMENT for venous thrombosis and/or pulmonary embolus.HIGH RISK: Target INR is 2.5-3.5 for patients with mechanical heart valves.CBC W/PLT COUNT & AUTO [id number] 14:44:53 Test Item Value Reference Range Interpretation [...] (test code = 413) Clostridium difficile GDH Sfjts3850-38-16 21:23:26 Test Item Value Reference Range Interpretation Comments C. Difficle Toxin Positive Negative A (test code = 4383528216) C. Difficile GDH Positive Negative A Confirms Antigen (test code = Clostri dium 7252329632) difficile-assoc ia barron infection.First line therapy - [...] use. Lab Interpretation Abnormal (test code = 52972-9) [facility]uraClostridium difficile [facility] Iwphw4739-15-90 21:23:26 Test Item Value Reference Range Interpretation Comments C. Difficle Toxin Positive Negative A (test code = 4928535858) C. Difficile GDH Positive Negative A Confirms Antigen (test code = Clostri dium 1824204699) difficile-assoc ia barron infection.First line therapy - [...] use. Lab Interpretation Abnormal (test code = 41824-2) [facility]ostridium difficile [facility]DH Ttzea0436-26-01 21:23:26 Test Item Value Reference Range Interpretation Comments C. Difficle Toxin Positive Negative A (test code = 8610544428) C. Difficile GDH Positive Negative A Confirms Antigen (test code = Clostri dium 4189638422) difficile-assoc ia barron infection.First line therapy - [...] use. Lab Interpretation Abnormal (test code = 52714-8) [facility]uraClostridium difficile GDH Hlero2990-15-54 21:23:26 Test Item Value Reference Range Interpretation Comments C. Difficle Toxin Positive Negative A (test code = 7359066812) C. Difficile GDH Positive Negative A Confirms Antigen (test code = Clostri dium 4097079543) difficile-assoc ia barron infection.First line therapy - [...] use. Lab Interpretation Abnormal (test code = 78391-3) [facility]. DIFFICILE GDH [id number] 21:23:26 Test Item Value Reference Range Interpretation Comments CDT TOXIN (test code Positive Negative A = ) CDT GDH ANTIGEN Positive Negative A Confirms Maria Esther stridium (test code = difficile-assoc iated 9190944449) infection.First line therapy - oral Vancomycin. Con [...] done by the [facility] MicrobiologyLab prior to clinical use.CT, CHEST, WITH [id number] 10:14:00Unlisted Reason for Exam - Click Yes and Enter Reason Below->No [facility] 1960 Sex: [...] Sims MDReport Verified Date/Time: 09/04/2021 10:14:08 CT, WHJSPBF8732-73-14 10:14:00Unlisted Reason for Exam - Click Yes and Enter Reason Below->No Is this for enterography?->YesWill this procedure require oral contrast?->Yes [facility] 1960 Sex: FFINAL [...] CONCENTRATION Decreased (CELLAVISION)(BEAKER) (test code = 3438) Greenskeeper ID - michaela Cutler comments: Slide comments:CBC W/PLT COUNT & AUTO WKVPOORAPEXG6759-19-06 07:25:32 Test Item Value Reference Range Interpretation [...] /100 WBC 0-0 (test code = 413) [id number] 06:26:19 Test Item Value Reference Range Interpretation Comments PHOSPHORUS (BEAKER) (test code = 1.5 mg/dL 2.3-4.7 LL 604) Greenskeeper ID Ajay FRANK WComprehensive metabolic lttfj4590-27-35 06:18:30 Test Item Value Reference Range Interpretation Comments Protein, Total (test 4.7 See_Comment L [Autom ated code = 2885-2) message] The system which generated this result transmitted reference range : 6.0 - 8.3 gm/dL . The reference range was not used to interpr et this result as normal/abnormal . Albumin (test code = 2.7 g/dL 3.5-5.0 L 65455-6) Alkaline Phosphatase 85 U/L 40-150 (test code [...] (test code = 7.3 mg/dL 8.4-10.2 L 43351-5) AST (test code = 28 U/L 5-34 1920-8) ALT (test code = 14 U/L 1742-6) EGFR (test code = 53 mL/min/1.73 [place] [address]-9) NOT ACCURATE CREATININE CLEARANCE IN PREDICTING GLOMERULAR FILTRATION RATE . ESTIMATED GFR I S NOT APPLICABLE FOR DIALYSIS PATIENTS. REJI (test code = REJI) Greenskeeper ID Ajay Rosales slightly icteric Lab Interpretation Abnormal (test code = 72493-1) [facility]uraComprehensive metabolic [id number] 06:18:30 Test Item Value Reference Range Interpretation Comments Protein, Total (test 4.7 See_Comment L [Autom ated code = 2885-2) message] The system which generated this result transmitted reference range : 6.0 - 8.3 gm/dL . The reference range was not used to interpr et this result as normal/abnormal . Albumin (test code = 2.7 g/dL 3.5-5.0 L 56442-4) Alkaline Phosphatase 85 U/L 40-150 (test code [...] (test code = 7.3 mg/dL 8.4-10.2 L 08050-7) AST (test code = 28 U/L 1919-8) ALT (test code = 14 U/L 2-6) EGFR (test code = 53 mL/min/1.[place] [address]-5) NOT ACCURATE CREATININE CLEARANCE IN PREDICTING GLOMERULAR FILTRATION RATE . ESTIMATED GFR I S NOT APPLICABLE FOR DIALYSIS PATIENTS. REJI (test code = REJI) Greenskeeper ID - ZAC Rosales slightly icteric Lab Interpretation Abnormal (test code = 96636-4) [facility] [id number] 06:18:30 Test Item Value Reference Range Interpretation Comments Protein, Total (test 4.7 See_Comment L [Autom ated code = 2885-2) message] The system which generated this result transmitted reference range : 6.0 - 8.3 gm/dL . The reference range was not used to interpr et this result as normal/abnormal . Albumin (test code = 2.7 g/dL 3.5-5.0 L 68071-9) Alkaline Phosphatase 85 U/L 40-150 (test code [...] (test code = 7.3 mg/dL 8.4-10.2 L 90678-0) AST (test code = 28 U/L 5-34 1920-8) ALT (test code = 14 U/L 6-55 1742-6) EGFR (test code = 53 mL/min/1.[place] [address]-4) NOT ACCURATE CREATININE CLEARANCE IN PREDICTING GLOMERULAR FILTRATION RATE . ESTIMATED GFR I S NOT APPLICABLE FOR DIALYSIS PATIENTS. REJI (test code = REJI) Greenskeeper ID - ZAC Rosales slightly icteric Lab Interpretation Abnormal (test code = 20784-8) [facility] [id number] 06:18:30 Test Item Value Reference Range Interpretation Comments Protein, Total (test 4.7 See_Comment L [Autom ated code = 2885-2) message] The system which generated this result transmitted reference range : 6.0 - 8.3 gm/dL . The reference range was not used to interpr et this result as normal/abnormal . Albumin (test code = 2.7 g/dL 3.5-5.0 L 69983-7) Alkaline Phosphatase 85 U/L 40-150 (test code [...] (test code = 7.3 mg/dL 8.4-10.2 L 62804-6) AST (test code = 28 U/L 5-34 1920-8) ALT (test code = 14 U/L 6-55 1742-6) EGFR (test code = 53 mL/min/1.[place] [address]-4) NOT ACCURATE CREATININE CLEARANCE IN PREDICTING GLOMERULAR FILTRATION RATE . ESTIMATED GFR I S NOT APPLICABLE FOR DIALYSIS PATIENTS. REJI (test code = REJI) Greenskeeper ID - ZAC WSpecimen slightly icteric Lab Interpretation Abnormal (test code = 00139-0) [facility]ABOL[facility] [id number] 06:18:30 Test Item Value Reference Range Interpretation [...] S NOT APPLICABLE FOR DIALYSIS PATIEN TS. Greenskeeper ID Ajay FRANK WSpecimen slightly [id number] 06:13:05 Test Item Value Reference Range Interpretation Comments MAGNESIUM (BEAKER) (test code = 2.3 mg/dL 1.6-2.6 627) Greenskeeper ID Ajay FRANK W(CELLAVISION MANUAL DIFF)2021-09-03 14:33:56 [...] CONCENTRATION Decreased (CELLAVISION)(BEAKER) (test code = 3438) Greenskeeper ID - Claudine Rios comments: Slide comments:CBC W/PLT COUNT & AUTO [id number] 14:33:55 Test Item Value Reference Range Interpretation [...] (test code = 413) Hepatitis B surface cfgbactu5492-86-35 13:30:11 Test Item Value Reference Range Interpretation Comments Hep B S Ab (test code <8.0 See_Comment [Auto mated = 41603-8) message] The system which generated this result transmit barron reference range : <8.0 mIU/mL. Th e reference range was not used to interpret this result as normal/abnormal . REJI (test code = REJI) Greenskeeper ID - PIAYA L Lab Interpretation Normal (test code = 10703-9) [facility] B surface smtnsxxo0716-38-98 13:30:11 Test Item Value Reference Range Interpretation Comments Hep B S Ab (test code <8.0 See_Comment [Auto mated = 16956-8) message] The system which generated this result transmit barron reference range : <8.0 mIU/mL. Th e reference range was not used to interpret this result as normal/abnormal . REJI (test code = REJI) Greenskeeper ID - PIAYA L Lab Interpretation Normal (test code = 56570-2) [facility] B surface [id number] 13:30:11 Test Item Value Reference Range Interpretation Comments Hep B S Ab (test code <8.0 See_Comment [Auto mated = 95133-9) message] The system which generated this result transmit barron reference range : <8.0 mIU/mL. Th e reference range was not used to interpret this result as normal/abnormal . REJI (test code = REJI) Greenskeeper ID - PIAYA L Lab Interpretation Normal (test code = 37506-1) [facility] chdymshk2720-67-67 13:30:11 Test Item Value Reference Range Interpretation Comments Hep B S Ab (test code <8.0 See_Comment [Auto mated = 85120-1) message] The system which generated this result transmit barron reference range : <8.0 mIU/mL. Th e reference range was not used to interpret this result as normal/abnormal . REJI (test code = REJI) Greenskeeper ID - PIAYA L Lab Interpretation Normal (test code = 28082-0) [facility] B SURFACE [id number] 13:30:11 Test Item Value Reference Range Interpretation Comments HEPATITIS B SURFACE ANTIBODY < mIU/mL <8.0 (BEAKER) (test code = 647) Greenskeeper ID - PIRADHA LHepatitis A antibody, [id number] 13:23:53 Test Item Value Reference Range Interpretation Comments Hep A IgG (test code = Nonreactive Nonreactive 04350-4) REJI (test code = REJI) Greenskeeper ID - PIAYA L Lab Interpretation (test Normal code = 41252-1) [facility] A antibody, [id number] 13:23:53 Test Item Value Reference Range Interpretation Comments Hep A IgG (test code = Nonreactive Nonreactive 00349-1) REJI (test code = REJI) Greenskeeper ID - PIAYA L Lab Interpretation (test Normal code = 09900-5) [facility], [id number] 13:23:53 Test Item Value Reference Range Interpretation Comments Hep A IgG (test code = Nonreactive Nonreactive 54250-8) REJI (test code = REJI) Greenskeeper ID - PIAYA L Lab Interpretation (test Normal code = 27073-1) [facility], [id number] 13:23:53 Test Item Value Reference Range Interpretation Comments Hep A IgG (test code = Nonreactive Nonreactive 29860-9) REJI (test code = REJI) Greenskeeper ID - PIAYA L Lab Interpretation (test Normal code = 26910-2) [facility] [id number] 13:23:53 Test Item Value Reference Range Interpretation Comments HEPATITIS A IGG ANTIBODY (BEAKER) Nonreactive Nonreactive (test code = 2797) Greenskeeper ID - PIRADHA LHepatitis B core antibody, [id number] 13:23:52 Test Item Value Reference Range Interpretation Comments Hep B Core Total Ab Nonreactive Nonreactive (test code = 07489-8) REJI (test code = REJI) Greenskeeper ID - PIAYA L Lab Interpretation (test Normal code = 29605-1) [facility] fkvjqbdj3525-02-62 13:23:52 Test Item Value Reference Range Interpretation Comments Hepatitis C Ab (test Nonreactive Nonreactive code = 39033-9) REJI (test code = REJI) Greenskeeper ID - MARLON L Lab Interpretation (test Normal code = 63556-9) [facility] B core antibody, [id number] 13:23:52 Test Item Value Reference Range Interpretation Comments Hep B Core Total Ab Nonreactive Nonreactive (test code = 59964-0) REJI (test code = REJI) Greenskeeper ID - MARLON L Lab Interpretation (test Normal code = 29802-8) [facility] B core antibody, [id number] 13:23:52 Test Item Value Reference Range Interpretation Comments Hep B Core Total Ab Nonreactive Nonreactive (test code = 27778-9) REJI (test code = REJI) Greenskeeper ID - MARLON L Lab Interpretation (test Normal code = 73606-5) [facility] B core antibody, [id number] 13:23:52 Test Item Value Reference Range Interpretation Comments Hep B Core Total Ab Nonreactive Nonreactive (test code = 62819-8) REJI (test code = REJI) Greenskeeper ID - MARLON L Lab Interpretation (test Normal code = 30744-9) [facility] C [id number] 13:23:52 Test Item Value Reference Range Interpretation Comments HEPATITIS C ANTIBODY (BEAKER) Nonreactive Nonreactive (test code = 367) Greenskeeper ID Ajay MASON LHEPATITIS B CORE ANTIBODY, [id number] 13:23:52 Test Item Value Reference Range Interpretation Comments HEPATITIS B CORE TOTAL ANTIBODY Nonreactive Nonreactive (BEAKER) (test code = 497) Greenskeeper ID Ajay MASON LHepatitis B surface [id number] 13:23:51 Test Item Value Reference Range Interpretation Comments HBsAg Screen (test code Nonreactive Nonreactive = 5195-3) REJI (test code = REJI) Specimen is considered negative for HBsAg. Lab Interpretation (test Normal code = 75183-8) [facility] B SURFACE [id number] 13:23:51 Test Item Value Reference Range Interpretation [...] S NOT APPLICABLE FOR DIALYSIS PATIEN TS. Greenskeeper ID - MARLON LSpecimen slightly [id number] 12:58:51 Test Item Value Reference Range Interpretation Comments MAGNESIUM (BEAKER) (test code = 2.1 mg/dL 1.6-2.6 627) Greenskeeper ID - MARLON [id number] 12:58:51 Test Item Value Reference Range Interpretation Comments PHOSPHORUS (BEAKER) (test code = 2.3 mg/dL 2.3-4.7 604) Greenskeeper ID - MARLON LPROTHROMBIN TIME/[id number] 12:56:09 Test Item Value Reference Range Interpretation Comments PROTIME (BEAKER) 23.4 seconds 11.9-14.2 H (test code = 759) INR (BEAKER) (test 2.10 See_Comment [Automat ed message] code = 370) The system DOZ generated this result transmitted ref erence range: <=5.90. The reference range was not used to int erpret this result as normal/abnormal . RECOMMENDED COUMADIN/WARFARIN INR THERAPY RANGESSTANDARD DOSE: 2.0 - 3.0 Includes: PROPHYLAXIS for venous thrombosis, systemic embolization; TREATMENT for venous thrombosis and/or pulmonary embolus.HIGH RISK: Target INR is 2.5-3.5 for patients with mechanical heart valves.Urine mulaguj7924-06-54 12:15:06 Test Item Value Reference Range Interpretation Comments Result (test code = 6463-4) No growth [facility] iduqlcl5524-12-59 12:15:06 Test Item Value Reference Range Interpretation Comments Result (test code = 6463-4) No growth [facility] [id number] 12:15:06 Test Item Value Reference Range Interpretation Comments Result (test code = 6463-4) No growth [facility] [id number] 12:15:06 Test Item Value Reference Range Interpretation Comments Result (test code = 6463-4) No growth [facility] Pathogen Profile by PCR -ID [id number] 12:43:22 Test Item Value Reference Range Interpretation Comments CAMPYLOBACTER (PCR) Not detected Not detected (test code = 94724-2) PLESIOMONAS SHIGELLOIDES Not detected Not detected (PCR) (test code = 11629-2) SALMONELLA (PCR) (test Not detected Not detected code = 45767-7) YERSINIA ENTEROCOLITICA Not detected Not detected (PCR) (test code = 06829-2) VIBRIO CHOLERAE (PCR) Not detected Not detected (test code = 28047-0) ENTEROAGGREGATIVE E. Not detected Not detected COLI (EAEC) BY PCR (test code = 45513-9) ENTEROPATHOGENIC E. COLI Not detected Not detected (EPEC) BY PCR (test code = 52794-5) ENTEROTOXIGENIC E. COLI Not detected Not detected (ETEC) LT/ST BY PCR (test code = 26630-8) SHIGA-LIKE Not detected Not detected TOXIN-PRODUCING E. COLI (STEC) STX1/STX2 (test code = 17519-4) E. COLI O157 (PCR) (test code = 34804-2) SHIGELLA/ENTEROINVASIVE Not detected Not detected E. COLI (EIEC) BY PCR (test code = 44543-4) CRYPTOSPORIDIUM (PCR) Not detected Not detected (test code = 17441-1) CYCLOSPORA CAYETANENSIS Not detected Not detected (PCR) (test code = 17509-7) ENTAMOEBA HISTOLYTICA Not detected Not detected (PCR) (test code = 82534-6) GIARDIA LAMBLIA (PCR) Not detected Not detected (test code = 51406-4) ADENOVIRUS F 40/41 (PCR) Not detected Not detected (test code = 91637-6) ASTROVIRUS (PCR) (test Not detected Not detected code = 27164-1) NOROVIRUS GI/GII (PCR) Not detected Not detected (test code = 56954-8) ROTAVIRUS A (PCR) (test Not detected Not detected code = 95917-9) SAPOVIRUS (I, II, IV, V) Not detected Not detected BY PCR (test code = 65173-9) VIBRIO Not detected Not detected (PARAHAEMOLYTICUS, VULNIFICUS) (test code = 53020-3) REJI (test code = REJI) Other viruses, [...] [facility] Molecular Diagnostics Laboratory using the [employer] Gastrointestinal Panel. It is FDA cleared and has been verified and approved by the [facility] Molecular Diagnostics Laboratory for clinical use. This laboratory is CLIA-certified and [employer] ([employer])-accredited to perform high complexity testing. [facility] Path[facility] Profile by PCR -ID [id number] 12:43:22 Test Item Value Reference Range Interpretation Comments CAMPYLOBACTER PCR (test Not detected Not detected code = 03071-8) PLESIOMONAS SHIGELLOIDES Not detected Not detected (PCR) (test code = 41378-2) SALMONELLA (PCR) (test Not detected Not detected code = 08018-5) YERSINIA ENTEROCOLITICA Not detected Not detected (PCR) (test code = 64364-6) VIBRIO CHOLERAE (PCR) Not detected Not detected (test code = 32873-8) ENTEROAGGREGATIVE E. Not detected Not detected COLI (EAEC) BY PCR (test code = 83332-4) ENTEROPATHOGENIC E. COLI Not detected Not detected (EPEC) BY PCR (test code = 48455-0) ENTEROTOXIGENIC E. COLI Not detected Not detected (ETEC) LT/ST BY PCR (test code = 43993-7) SHIGA-LIKE Not detected Not detected TOXIN-PRODUCING E. COLI (STEC) STX1/STX2 (test code = 41249-5) E. COLI O157 (PCR) (test code = 75862-9) SHIGELLA/ENTEROINVASIVE Not detected Not detected E. COLI (EIEC) BY PCR (test code = 26776-2) CRYPTOSPORIDIUM (PCR) Not detected Not detected (test code = 76394-7) CYCLOSPORA CAYETANENSIS Not detected Not detected (PCR) (test code = 67295-3) ENTAMOEBA HISTOLYTICA Not detected Not detected (PCR) (test code = 22196-6) GIARDIA LAMBLIA (PCR) Not detected Not detected (test code = 62505-2) ADENOVIRUS F 40/41 (PCR) Not detected Not detected (test code = 17890-9) ASTROVIRUS (PCR) (test Not detected Not detected code = 05237-7) NOROVIRUS GI/GII (PCR) Not detected Not detected (test code = 25281-7) ROTAVIRUS A (PCR) (test Not detected Not detected code = 93199-6) SAPOVIRUS (I, II, IV, V) Not detected Not detected BY PCR (test code = 04407-7) VIBRIO Not detected Not detected (PARAHAEMOLYTICUS, VULNIFICUS) (test code = 77432-7) REJI (test code = REJI) Other viruses, [...] [facility] Molecular Diagnostics Laboratory using the [employer] Gastrointestinal Panel. It is FDA cleared and has been verified and approved by the [facility] Molecular Diagnostics Laboratory for clinical use. This laboratory is CLIA-certified and [employer] (CAP)-accredited to perform high complexity testing. [facility] by PCR -ID [id number] 12:43:22 Test Item Value Reference Range Interpretation Comments CAMPYLOBACTER PCR (test Not detected Not detected code = 97967-9) PLESIOMONAS SHIGELLOIDES Not detected Not detected (PCR) (test code = 20777-5) SALMONELLA (PCR) (test Not detected Not detected code = 03891-8) YERSINIA ENTEROCOLITICA Not detected Not detected (PCR) (test code = 14166-5) VIBRIO CHOLERAE (PCR) Not detected Not detected (test code = 78902-8) ENTEROAGGREGATIVE E. Not detected Not detected COLI (EAEC) BY PCR (test code = 99842-1) ENTEROPATHOGENIC E. COLI Not detected Not detected (EPEC) BY PCR (test code = 30188-1) ENTEROTOXIGENIC E. COLI Not detected Not detected (ETEC) LT/ST BY PCR (test code = 06600-6) SHIGA-LIKE Not detected Not detected TOXIN-PRODUCING E. COLI (STEC) STX1/STX2 (test code = 75514-7) E. COLI O157 (PCR) (test code = 88631-7) SHIGELLA/ENTEROINVASIVE Not detected Not detected E. COLI (EIEC) BY PCR (test code = 70021-7) CRYPTOSPORIDIUM (PCR) Not detected Not detected (test code = 80953-2) CYCLOSPORA CAYETANENSIS Not detected Not detected (PCR) (test code = 66527-1) ENTAMOEBA HISTOLYTICA Not detected Not detected (PCR) (test code = 99332-0) GIARDIA LAMBLIA (PCR) Not detected Not detected (test code = 11784-1) ADENOVIRUS F 40/41 (PCR) Not detected Not detected (test code = 79696-3) ASTROVIRUS (PCR) (test Not detected Not detected code = 70515-3) NOROVIRUS GI/GII (PCR) Not detected Not detected (test code = 35994-1) ROTAVIRUS A (PCR) (test Not detected Not detected code = 90281-7) SAPOVIRUS (I, II, IV, V) Not detected Not detected BY PCR (test code = 12434-8) VIBRIO Not detected Not detected (PARAHAEMOLYTICUS, VULNIFICUS) (test code = 44456-9) REJI (test code = REJI) Other viruses, [...] [facility] Molecular Diagnostics Laboratory using the Manflu Gastrointestinal Panel. It is FDA cleared and has been verified and approved by the [facility] Molecular Diagnostics Laboratory for clinical use. This laboratory is CLIA-certified and [employer] (CAP)-accredited to perform high complexity testing. [facility] by PCR -ID [id number] 12:43:22 Test Item Value Reference Range Interpretation Comments CAMPYLOBACTER PCR (test Not detected Not detected code = 21901-9) PLESIOMONAS SHIGELLOIDES Not detected Not detected (PCR) (test code = 97647-8) SALMONELLA (PCR) (test Not detected Not detected code = 01970-5) YERSINIA ENTEROCOLITICA Not detected Not detected (PCR) (test code = 17315-0) VIBRIO CHOLERAE (PCR) Not detected Not detected (test code = 88675-0) ENTEROAGGREGATIVE E. Not detected Not detected COLI (EAEC) BY PCR (test code = 97742-8) ENTEROPATHOGENIC E. COLI Not detected Not detected (EPEC) BY PCR (test code = 39454-4) ENTEROTOXIGENIC E. COLI Not detected Not detected (ETEC) LT/ST BY PCR (test code = 46060-2) SHIGA-LIKE Not detected Not detected TOXIN-PRODUCING E. COLI (STEC) STX1/STX2 (test code = 78876-0) E. COLI O157 (PCR) (test code = 67571-7) SHIGELLA/ENTEROINVASIVE Not detected Not detected E. COLI (EIEC) BY PCR (test code = 44666-8) CRYPTOSPORIDIUM (PCR) Not detected Not detected (test code = 22273-2) CYCLOSPORA CAYETANENSIS Not detected Not detected (PCR) (test code = 53571-9) ENTAMOEBA HISTOLYTICA Not detected Not detected (PCR) (test code = 45001-9) GIARDIA LAMBLIA (PCR) Not detected Not detected (test code = 53707-7) ADENOVIRUS F 40/41 (PCR) Not detected Not detected (test code = 03242-4) ASTROVIRUS (PCR) (test Not detected Not detected code = 83784-7) NOROVIRUS GI/GII (PCR) Not detected Not detected (test code = 40802-3) ROTAVIRUS A (PCR) (test Not detected Not detected code = 75912-7) SAPOVIRUS (I, II, IV, V) Not detected Not detected BY PCR (test code = 19647-8) VIBRIO Not detected Not detected (PARAHAEMOLYTICUS, VULNIFICUS) (test code = 56455-5) REJI (test code = REJI) Other viruses, [...] [facility] Molecular Diagnostics Laboratory using the Manflu Gastrointestinal Panel. It is FDA cleared and has been verified and approved by the [facility] Molecular Diagnostics Laboratory for clinical use. This laboratory is CLIA-certified and [employer] (CAP)-accredited to perform high complexity testing. [facility] PROFILE BY [id number] 12:43:22 Test Item Value Reference Range Interpretation [...] Not detected BY PCR (test code = 8907016) ENTEROPATHOGENIC E. COLI (EPEC) Not detected Not detected BY PCR (test code = 1447074) ENTEROTOXIGENIC E. COLI (ETEC) Not detected Not detected LT/ST BY PCR (test code = 8977614) SHIGA-LIKE TOXIN-PRODUCING E. Not detected Not detected COLI (STEC) STX1/STX2 (test code = 4582357) E. COLI O157 (PCR) (test code = 9875236) SHIGELLA/ENTEROINVASIVE E. COLI Not detected Not detected (EIEC) BY PCR (test code = 8949449) CRYPTOSPORIDIUM (PCR) (test code Not detected Not detected = 9496927) CYCLOSPORA CAYETANENSIS (PCR) Not detected Not detected (test code = 2918337) ENTAMOEBA HISTOLYTICA (PCR) Not detected Not detected (test code = 6466913) GIARDIA LAMBLIA (PCR) (test code Not detected Not detected = 6141802) ADENOVIRUS F 40/41 (PCR) (test Not detected Not detected code = 3829810) ASTROVIRUS (PCR) (test code = Not detected Not detected 20160415) NOROVIRUS GI/GII (PCR) (test Not detected Not detected code = 4796349) ROTAVIRUS A (PCR) (test code = Not detected Not detected 20160417) SAPOVIRUS (I, II, IV, V) BY PCR Not detected Not detected (test code = 5812844) VIBRIO (PARAHAEMOLYTICUS, Not detected Not detected VULNIFICUS) (test code = 0143812) Other viruses, parasites and bacteria not targeted [...] [facility] Molecular Diagnostics Laboratory using the Manflu Gastrointestinal Panel. It is FDA cleared and [...] CONCENTRATION Decreased (CELLAVISION)(BEAKER) (test code = 3438) Greenskeeper ID - Phyllis comments: Slide comments:CBC W/PLT COUNT & AUTO [id number] 08:49:57 Test Item Value Reference Range Interpretation [...] (test code = 413) Vitamin B12 and [id number] 07:20:11 Test Item Value Reference Range Interpretation Comments Vitamin B12 (test 1116 pg/mL 213-816 H code = 2132-9) Folate (test code = 3.50 ng/mL See_Comment L [Automa barron 2284-8) message] The system which generated this result transmit barron reference range : >=7.00. The reference range was not used to interpret this result as normal/abnormal . REJI (test code = REJI) Greenskeeper ID - SHAQUILLE Reynolds Lab Interpretation Abnormal (test code = 83634-7) [facility] [id number] 07:20:11 Test Item Value Reference Range Interpretation Comments Vitamin B12 (test 1116 pg/mL 213-816 H code = 2132-9) Folate (test code = 3.50 ng/mL See_Comment L [Automa barron 2284-8) message] The system which generated this result transmit barron reference range : >=7.00. The reference range was not used to interpret this result as normal/abnormal . REJI (test code = REJI) Greenskeeper ID - SHAQUILLE Reynolds Lab Interpretation Abnormal (test code = 98624-7) [facility] and [id number] 07:20:11 Test Item Value Reference Range Interpretation Comments Vitamin B12 (test 1116 pg/mL 213-816 H code = 2132-9) Folate (test code = 3.50 ng/mL See_Comment L [Automa barron 2284-8) message] The system which generated this result transmit barron reference range : >=7.00. The reference range was not used to interpret this result as normal/abnormal . REJI (test code = REJI) Greenskeeper ID - SHAQUILLE Reynolds Lab Interpretation Abnormal (test code = 56959-9) [facility] and [id number] 07:20:11 Test Item Value Reference Range Interpretation Comments Vitamin B12 (test 1116 pg/mL 213-816 H code = 2132-9) Folate (test code = 3.50 ng/mL See_Comment L [Automa barron 2284-8) message] The system which generated this result transmit barron reference range : >=7.00. The reference range was not used to interpret this result as normal/abnormal . REJI (test code = REJI) Greenskeeper ID - SHAQUILLE Reynolds Lab Interpretation Abnormal (test code = 51760-5) [facility] AND [id number] 07:20:11 Test Item Value Reference Range Interpretation Comments VITAMIN B12 (BEAKER) 1116 pg/mL 213-816 H (test code = 774) FOLATE (BEAKER) 3.50 ng/mL See_Comment L [Automated message] (test code = 362) The system which generated this result transmitted ref erence range: >=7.00. The reference range was not used to interpr et this result as normal/abnormal . Greenskeeper ID - SHAQUILLE MCOMPREHENSIVE METABOLIC [id number] 06:57:06 Test Item Value Reference Range Interpretation [...] S NOT APPLICABLE FOR DIALYSIS PATIEN TS. Greenskeeper ID - SHAQUILLE MSpecimen slightly ictericC-Reactive [id number] 06:55:26 Test Item Value Reference Range Interpretation Comments CRP (test code = 676) 4.64 mg/dL 0.00-0.50 H REJI (test code = REJI) Greenskeeper GINA Reynolds Lab Interpretation (test Abnormal code = 91550-3) [facility] 06:55:26 Test Item Value Reference Range Interpretation Comments PHOSPHORUS (BEAKER) (test code = 1.8 mg/dL 2.3-4.7 L 604) Greenskeeper ID Ajay CORBIN MC-REACTIVE [id number] 06:55:26 Test Item Value Reference Range Interpretation Comments C-REACTIVE PROTEIN (BEAKER) (test 4.64 mg/dL 0.00-0.50 H code = 676) Greenskeeper ID - SHAQUILLE FVDQKLTYUR9900-10-17 06:55:25 Test Item Value Reference Range Interpretation Comments MAGNESIUM (BEAKER) (test code = 2.3 mg/dL 1.6-2.6 627) Greenskeeper ID Ajay CORBIN Corina, TIBC, % sat. (without ferritin)2021-09-02 06:44:00 Test Item Value Reference Range Interpretation Comments Iron (test code = 2498-4) 28.0 ug/dL 40.0-160.0 L TIBC (test code = 2500-7) 243 ug/dL 250-450 L Iron % Saturation (test 12 % 20-55 L code = 2502-3) REJI (test code = REJI) Greenskeeper ID - SHAQUILLE M Lab Interpretation (test Abnormal code = 02314-4) [facility], TIBC, % sat. (without ferritin)2021-09-02 06:44:00 Test Item Value Reference Range Interpretation Comments Iron (test code = 2498-4) 28.0 ug/dL 40.0-160.0 L TIBC (test code = 2500-7) 243 ug/dL 250-450 L Iron % Saturation (test 12 % 20-55 L code = 2502-3) REJI (test code = REJI) Greenskeeper ID - SHAQUILLE M Lab Interpretation (test Abnormal code = 81311-9) [facility], TIBC, % sat. (without ferritin)2021-09-02 06:44:00 Test Item Value Reference Range Interpretation Comments Iron (test code = 2498-4) 28.0 ug/dL 40.0-160.0 L TIBC (test code = 2500-7) 243 ug/dL 250-450 L Iron % Saturation (test 12 % 20-55 L code = 2502-3) REJI (test code = REJI) Greenskeeper ID - SHAQUILLE M Lab Interpretation (test Abnormal code = 65665-7) [facility], TIBC, % sat. (without ferritin)2021-09-02 06:44:00 Test Item Value Reference Range Interpretation Comments Iron (test code = 2498-4) 28.0 ug/dL 40.0-160.0 L TIBC (test code = 2500-7) 243 ug/dL 250-450 L Iron % Saturation (test 12 % 20-55 L code = 2502-3) REJI (test code = REJI) Greenskeeper ID - SHAQUILLE M Lab Interpretation (test Abnormal code = 90821-5) [facility], TIBC, % SAT. (WITHOUT FERRITIN)2021-09-02 06:44:00 Test Item Value Reference Range Interpretation Comments IRON (BEAKER) (test code = 547) 28.0 ug/dL 40.0-160.0 L TOTAL IRON BINDING CAPACITY 243 ug/dL 250-450 L (BEAKER) (test code = 769) IRON % SATURATION (2) (BEAKER) 12 % 20-55 L (test code = 2590) Greenskeeper ID - SHAQUILLE MCT, BRAIN, WITHOUT [id number] 03:54:00Unlisted Reason for Exam - Click Yes and Enter Reason Below->No [facility] : 1960 [...] recommended for further characterization. Signed: Mercy Mccallum [facility] Verified Date/Time: 09/02/2021 03:54:37 U/S, ABDOMINAL, [id number] 03:38:00 Abdomen limited area? Add comment if clarification is needed.->Right upper quadrantReason for exam:->evaluate biliary tree/liver [facility] : 1960 Sex: [...] of hepatic steatosis. Signed: Dulce Maria Sales [facility] Verified Date/Time: 09/02/2021 03:38:29 Urinalysis w/Microscopic + Reflex to Culture 2021-09-02 02:29:12 Test Item Value Reference Range Interpretation Comments Color, UA (test code Brown = 5778-6) Clarity, UA (test Hazy code = 5767-9) Specific [place], UA 1.029 1.001-1.035 (test code = 5811-5) pH, UA (test code = 6.0 5.0-8.0 5803-2) Protein, UA (test 30 mg/dL Negative A code = 33215-8) Glucose, UA (test Negative Negative code = 365) Ketones, UA (test Negative Negative code = 2514-8) Bilirubin, UA (test Negative Negative code = 18336-0) Blood, UA (test code Small Negative A = 86324-7) Nitrite, UA (test Negative Negative code = 5802-4) Leukocytes, UA (test Moderate Negative A code = 5799-2) Urobilinogen, UA 0.2 mg/dL 0.2-1.0 (test code = 28561-5) RBC, UA (test code = 18 See_Comment [Autom ated 80636-9) message] The system which generated this result [...] . Bacteria, UA (test Rare code = 38967-2) Mucus (test code = Moderate 8247-9) Squam Epithel, UA 2 See_Comment [Automate d (test code = 88800-8) messag e] The system which generated this result transmit barron reference range : /HPF. The reference range was not used to interpret this result as normal/abnormal . Hyaline Casts, UA 3 See_Comment [Automate d (test code = 48122-5) messag e] The system which generated this result transmit barron reference range : /LPF. The reference range was not used to interpret this result as normal/abnormal . Crystals, Urine (test None Seen code = 83239-9) Amorphous Crystals Rare (test code = 93625-1) Specimen Source (test code = 2795) REJI (test code = REJI) Greenskeeper ID - [auto]Greenskeeper ID - tech Lab Interpretation Abnormal (test code = 32291-0) [facility] + Reflex to Culture 2021-09-02 02:29:12 Test Item Value Reference Range Interpretation Comments Color, UA (test code Brown = 5778-6) Clarity, UA (test Hazy code = 5767-9) Specific [place], UA 1.029 1.001-1.035 (test code = 5811-5) pH, UA (test code = 6.0 5.0-8.0 5803-2) Protein, UA (test 30 mg/dL Negative A code = 27551-4) Glucose, UA (test Negative Negative code = 365) Ketones, UA (test Negative Negative code = 2514-8) Bilirubin, UA (test Negative Negative code = 12184-2) Blood, UA (test code Small Negative A = 20103-8) Nitrite, UA (test Negative Negative code = 5802-4) Leukocytes, UA (test Moderate Negative A code = 5799-2) Urobilinogen, UA 0.2 mg/dL 0.2-1.0 (test code = 43821-3) RBC, UA (test code = 18 See_Comment [Autom ated 45159-4) message] The system which generated this result [...] . Bacteria, UA (test Rare code = 15066-6) Mucus (test code = Moderate 8247-9) Squam Epithel, UA 2 See_Comment [Automate d (test code = 66736-6) messag e] The system which generated this result transmit barron reference range : /HPF. The reference range was not used to interpret this result as normal/abnormal . Hyaline Casts, UA 3 See_Comment [Automate d (test code = 08806-1) messag e] The system which generated this result transmit barron reference range : /LPF. The reference range was not used to interpret this result as normal/abnormal . Crystals, Urine (test None Seen code = 10578-6) Amorphous Crystals Rare (test code = 63959-0) Specimen Source (test code = 2795) REJI (test code = REJI) Greenskeeper ID - [auto]Greenskeeper ID - tech Lab Interpretation Abnormal (test code = 82673-4) [facility] w/Microscopic + Reflex to Culture 2021-09-02 02:29:12 Test Item Value Reference Range Interpretation Comments Color, UA (test code Brown = 5778-6) Clarity, UA (test Hazy code = 5767-9) Specific [place], UA 1.029 1.001-1.035 (test code = 5811-5) pH, UA (test code = 6.0 5.0-8.0 5803-2) Protein, UA (test 30 mg/dL Negative A code = 01087-2) Glucose, UA (test Negative Negative code = 365) Ketones, UA (test Negative Negative code = 2514-8) Bilirubin, UA (test Negative Negative code = 83266-7) Blood, UA (test code Small Negative A = 48674-4) Nitrite, UA (test Negative Negative code = 5802-4) Leukocytes, UA (test Moderate Negative A code = 5799-2) Urobilinogen, UA 0.2 mg/dL 0.2-1.0 (test code = 13371-9) RBC, UA (test code = 18 See_Comment [Autom ated 43123-2) message] The system which generated this result [...] . Bacteria, UA (test Rare code = 68062-5) Mucus (test code = Moderate 8247-9) Squam Epithel, UA 2 See_Comment [Automate d (test code = 89604-8) messag e] The system which generated this result transmit barron reference range : /HPF. The reference range was not used to interpret this result as normal/abnormal . Hyaline Casts, UA 3 See_Comment [Automate d (test code = 91194-5) messag e] The system which generated this result transmit barron reference range : /LPF. The reference range was not used to interpret this result as normal/abnormal . Crystals, Urine (test None Seen code = 46427-0) Amorphous Crystals Rare (test code = 94397-2) Specimen Source (test code = 2795) REJI (test code = REJI) Greenskeeper ID - [auto]Greenskeeper ID - tech Lab Interpretation Abnormal (test code = 59115-0) [facility] w/Microscopic + Reflex to Culture 2021-09-02 02:29:12 Test Item Value Reference Range Interpretation Comments Color, UA (test code Brown = 5778-6) Clarity, UA (test Hazy code = 5767-9) Specific [place], UA 1.029 1.001-1.035 (test code = 5811-5) pH, UA (test code = 6.0 5.0-8.0 5803-2) Protein, UA (test 30 mg/dL Negative A code = 12431-4) Glucose, UA (test Negative Negative code = 365) Ketones, UA (test Negative Negative code = 2514-8) Bilirubin, UA (test Negative Negative code = 64009-0) Blood, UA (test code Small Negative A = 82077-5) Nitrite, UA (test Negative Negative code = 5802-4) Leukocytes, UA (test Moderate Negative A code = 5799-2) Urobilinogen, UA 0.2 mg/dL 0.2-1.0 (test code = 69465-0) RBC, UA (test code = 18 See_Comment [Autom ated 34732-2) message] The system which generated this result [...] . Bacteria, UA (test Rare code = 01242-4) Mucus (test code = Moderate 8247-9) Squam Epithel, UA 2 See_Comment [Automate d (test code = 45028-4) messag e] The system which generated this result transmit barron reference range : /HPF. The reference range was not used to interpret this result as normal/abnormal . Hyaline Casts, UA 3 See_Comment [Automate d (test code = 97891-4) messag e] The system which generated this result transmit barron reference range : /LPF. The reference range was not used to interpret this result as normal/abnormal . Crystals, Urine (test None Seen code = 08207-7) Amorphous Crystals Rare (test code = 32909-5) Specimen Source (test code = 2795) REJI (test code = REJI) Greenskeeper ID - [auto]Greenskeeper ID - tech Lab Interpretation Abnormal (test code = 61297-0) [facility]/ REFLEX URINE [id number] 02:29:12 Test Item Value Reference Range Interpretation [...] = 1584) SOURCE(BEAKER) (test code = 2795) Greenskeeper ID - [auto]Greenskeeper ID - techRAD, CHEST, 1 VIEW, NON [id number] 01:45:00Reason for exam:->leukocytosis, unable to provide historyShould this be performed at the bedside?->Yes [facility] : 1960 Sex: [...] acute osseous abnormality. Signed: Dulce Maria Sales [facility] Verified Date/Time: 09/02/2021 01:45:23 CBC W/PLT COUNT & AUTO [id number] 00:20:23 Test Item Value Reference Range Interpretation [...] CONCENTRATION Decreased (CELLAVISION)(BEAKER) (test code = 3438) Greenskeeper ID - Curtis OluwatobaUser comments: Slide comments:PT/sAGH1712-05-98 23:44:49 Test Item Value Reference Interpretation Comments [...] PTT (test code = 35.2 See_Comment [Automated 34434-6) message] The system which generated this result [...] valves. Lab Interpretation Abnormal (test code = 00944-5) [facility]uraPT/[id number] 23:44:49 Test Item Value Reference Interpretation Comments [...] PTT (test code = 35.2 See_Comment [Automated 36695-3) message] The system which generated this result [...] valves. Lab Interpretation Abnormal (test code = 41523-4) [facility]uraPT/[id number] 23:44:49 Test Item Value Reference Interpretation Comments [...] PTT (test code = 35.2 See_Comment [Automated 51824-7) message] The system which generated this result [...] valves. Lab Interpretation Abnormal (test code = 70014-9) [facility]uraPT/[id number] 23:44:49 Test Item Value Reference Interpretation Comments [...] PTT (test code = 35.2 See_Comment [Automated 73953-2) message] The system which generated this result [...] valves. Lab Interpretation Abnormal (test code = 07504-9) [facility]uraPT/[id number] 23:44:49 Test Item Value Reference Range Interpretation [...] for patients with mechanical heart valves.BASIC METABOLIC [id number] 23:31:12 Test Item Value Reference Range Interpretation [...] S NOT APPLICABLE FOR DIALYSIS PATIEN TS. Greenskeeper ID - DBSpecimen slightly pkmyqbuXLJHVFTGS0384-42-58 23:19:46 Test Item Value Reference Range Interpretation Comments MAGNESIUM (BEAKER) (test code = 1.8 mg/dL 1.6-2.6 627) Greenskeeper ID - [id number] 23:19:46 Test Item Value Reference Range Interpretation Comments PHOSPHORUS (BEAKER) (test code = 1.9 mg/dL 2.3-4.7 L 604) Greenskeeper ID - DBHEPATIC FUNCTION [id number] 23:19:46 Test Item Value Reference Range Interpretation [...] (test code = 14 U/L 6-55 347) Greenskeeper ID - DBSpecimen slightly ictericLactic acid, wqkowg6855-51-45 23:13:03 Test Item Value Reference Range Interpretation Comments Lactate, Venous (test 2.88 mmol/L 0.50-2.20 H code = 2872) REJI (test code = REJI) Greenskeeper ID - DBSpecimen slightly icteric Lab Interpretation (test Abnormal code = 73182-0) [facility]uraLactic acid, eorypj1801-87-27 23:13:03 Test Item Value Reference Range Interpretation Comments Lactate, Venous (test 2.88 mmol/L 0.50-2.20 H code = 2872) REJI (test code = REJI) Greenskeeper ID - DBSpecimen slightly icteric Lab Interpretation (test Abnormal code = 69633-1) [facility]uraLactic acid, [id number] 23:13:03 Test Item Value Reference Range Interpretation Comments Lactate, Venous (test 2.88 mmol/L 0.50-2.20 H code = 2872) REJI (test code = REJI) Greenskeeper ID - DBSpecimen slightly icteric Lab Interpretation (test Abnormal code = 12027-7) [facility]uraLactic acid, [id number] 23:13:03 Test Item Value Reference Range Interpretation Comments Lactate, Venous (test 2.88 mmol/L 0.50-2.20 H code = 2872) REJI (test code = REJI) Greenskeeper ID - DBSpecimen slightly icteric Lab Interpretation (test Abnormal code = 53025-8) [facility]uraLACTIC ACID, [id number] 23:13:03 Test Item Value Reference Range Interpretation Comments LACTATE BLOOD VENOUS (2) (BEAKER) 2.88 mmol/L 0.50-2.20 H (test code = 2872) Greenskeeper ID - DBSpecimen slightly ictericPOC-Glucose [id number] 22:47:30 Test Item Value Reference Range Interpretation Comments POC-Glucose Meter (test 106 mg/dL 70-110 : TE STED AT [facility] code = 1538) [address] [place] [address], [facility] 30: Greenskeeper/Techni sowmya ID = [id number] for ULLATTIL, TAYA K Lab Interpretation (test Normal code = 59412-8) [facility]-Glucose bzqka8611-54-82 22:47:30 Test Item Value Reference Range Interpretation Comments POC-Glucose Meter (test 106 mg/dL 70-110 : TE STED AT [facility] code = 1538) [address] [place] [address], [facility] 30: Greenskeeper/Techni sowmya ID = [id number] for ULLATTIL, TAYA K Lab Interpretation (test Normal code = 75273-7) [facility]-Glucose ugzmg4625-30-16 22:47:30 Test Item Value Reference Range Interpretation Comments POC-Glucose Meter (test 106 mg/dL 70-110 : TE STED AT [facility] code = 1538) [address] [place] [address], [facility] 30: Greenskeeper/Techni sowmya ID = [id number] for ULLATTIL, TAYA K Lab Interpretation (test Normal code = 55335-0) [facility]-Glucose [id number] 22:47:30 Test Item Value Reference Range Interpretation Comments POC-Glucose Meter (test 106 mg/dL 70-110 : TE STED AT [facility] code = 1538) [address] [facility], [address] 30: Greenskeeper/Techni sowmya ID = [id number] for TAYA TO K Lab Interpretation (test Normal code = 41800-6) [facility]uraPONH-GLUCOSE [id number] 22:47:30 Test Item Value Reference Range Interpretation Comments POC-GLUCOSE METER 106 mg/dL 70-110 : TESTED A T [facility] 6720 (BEAKER) (test code = [facility], 1538) [address]: Greenskeeper/Techni sowmya ID = [id number] for WALE FITZPATRICK C1Q class 1 & 2 [id number] 17:38:21 Test Item Value Reference Range Interpretation Comments Interpretation (test code ADDITIONAL ANTIBODY = 8700308) INFORMATION:DQ7 = DQB1*03:01; DQA1*05:03DQ7 = DQB1*03:19; DQA1*05:05DQ7 = DQB1*03:01; DQA1*06:01DQ9 = DQB1*03:03; DQA1*02:01DQ9 = DQB1*03:03; DQA1*03:02DQ8 = DQB1*03:02; DQA1*03:01DQ8 = DQB1*03:02; DQA1*03:02 Case number (test code = [id number]) C1Q class 1 & 2 antibody See link below for (test code = 6261630) PDF Lab Report [facility], lung volumes, [facility]/[id number] 19:27:26 Test Item Value Reference Range Interpretation [...] Predicted (test code = 67.9 % 5368) [facility] [id number] 13:53:30 Test Item Value Reference Range Interpretation Comments POC glucose (test code = 124 mg/dL 65-99 H Ope rator Name: [id number]) Clint Bustamante RDevice ID: [id number] able : [facility] Notified junior estimator Interpretation (test Abnormal code = 31764-8) [facility] antigen [id number] 11:33:46 Test Item Value Reference Range Interpretation Comments SAB interpretation (test Additional Antibody code = 5950) Information:DQ2=DQB1 *02:01/DQA1*04:01, DQB1*02:01/DQA1*05:0 1SA8=TFP5*04:02/DQA1 *04:63MJ0=RUN4*03:01 /DPA1*01:03, DPB1*03:01/DPA1*02:0 6DZ5=JAE3*04:02/DPA1 *01:38GU50=YQW3*28:0 1/DPA1*01:03 SAB serum ID (test code = [id number] 5866) [facility] serum collection D&T 08/23/2021 05:49 AM (test code = 5867) SAB class I antibody A11,A74,A32,A3,A31,A assignment (test code = 30,A36,A1,A29,A66,A8 5870) 0,A26,A25,A43,A34,A3 3,B82 SAB cPRA class I (test code = 5868) SAB class II antibody DR18,DR17,DR13,DR14, assignment (test code = DR52,DR11,DR8,DQ7,DR 5871) 12,DQ9,DR9,DR7,DQ8,D Q2,DR4,DQ4,DP2,DP14, DP4,DP9,DP10,DP18,DP 20,DP17,DP3,DP28 SAB cPRA class II (test code = 5869) Case number (test code = [id number]) Single antigen beads See link below for (test code = 4604) PDF Lab Report [facility]Protein, urine, [id number] 20:20:55 Test Item Value Reference Range Interpretation Comments Collection start date, urine (test 08/23/21 code = 43889-6) Collection start time, urine (test 8:40 code = 83765-0) Collection stop date, urine (test 08/24/21 code = 39526-6) Collection stop time, urine (test 8:40 code = 13649-5) Hours of collection (test code = 65560-5) Total volume, urine (test code = 800 mL 08707-1) Urine protein concentration (test 7 mg/dL code = 20747-9) Urine protein excretion (test code = mg/vol 2448) [facility]atin[facility] level, urine, [id number] 20:20:52 Test Item Value Reference Range Interpretation Comments Collection start date, urine (test 08/23/21 code = 85831-1) Collection start time, urine (test 8:40 code = 72587-9) Collection stop date, urine (test 08/24/21 code = 33948-1) Collection stop time, urine (test 8:40 code = 17543-4) Hours of collection (test code = 03035-9) Total volume, urine (test code = 800 mL 24603-1) Urine creatinine concentration 114 mg/dL (test code = 90558-6) Urine creatinine excretion (test mg/vol code = 06518-7) [facility] [Presence] in Respiratory specimen by GUSTAVO with probe [id number] 20:48:05 Test Item Value Reference Range Interpretation Comments SARS-CoV-2 (COVID-19) RNA Not detected Not-Detected [Presence] in Respiratory specimen by GUSTAVO with probe detection (test code = 98078-1) 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 (test code = 44919-5) Whether the patient has symptoms related to condition of interest (test code = 07171-5) Patient was hospitalized because of this condition (test code = 11196-4) Whether the patient was admitted to intensive care unit (ICU) for condition of interest (test code = 10900-7) Whether patient resides in a congregate care setting (test code = 16781-1) [place] [address] asol6671-49-04 15:33:38 Test Item Value Reference Range Interpretation Comments Ventricular rate (test code = 253) Atrial rate (test code = 255) CA interval (test code = 266) QRSD interval [...] out Inferior infarct , age undetermined-Abnormal [facility] gnttjzehkk6492-00-08 14:27:40 Test Item Value Reference Range Interpretation Comments HLA transplant evaluation See link below for (test code = 00409-5) PDF Lab Report Case number (test code = [id number]) [facility] ED Preliminary Interpretation - Not an Vauoc2300-98-31 02:54:33 Test Item Value Reference Range Interpretation Comments REJI (test code = REJI) Orlando Balderrama MD 08/17/2021 10:33 [facility] Preliminary Interpretation - Not an OrderPerformed by: Orlando Balderrama MDAuthorized by: Orlando Balderrama MD ECG reviewed by ED Physician in the absence of a conference director: yes Interpretation: Interpretation: abnormal Rate: ECG rate: 80 ECG rate assessment: normal Rhythm: Rhythm: sinus rhythm QRS: QRS axis: Normal QRS intervals: NormalST segments: ST segments: NormalOther findings: Other findings: prolonged qTc interval Lab Interpretation Abnormal (test code = 79149-8) [facility] RkttdljrRFRY-HxV-7 (COVID-19) RNA [Presence] in Respiratory specimen by GUSTAVO with probe nyfzkylqh4575-01-19 23:59:30 Test Item Value Reference Range Interpretation Comments SARS-CoV-2 (COVID-19) RNA Not detected Not-Detected [Presence] in Respiratory specimen by GUSTAVO with probe detection (test code = 33261-1) 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 (test code = 82051-5) Whether the patient has symptoms related to condition of interest (test code = 67727-6) Patient was hospitalized because of this condition (test code = 06307-5) Whether the patient was admitted to intensive care unit (ICU) for condition of interest (test code = 45783-3) Whether patient resides in a congregate care setting (test code = 12436-0) status (test code = 62055-0) PHI MICHAELSARS-CoV-2 (COVID-19) RNA [Presence] in Respiratory specimen by GUSTAVO with probe vjafedkhm0573-55-18 14:46:31 Test Item Value Reference Range Interpretation Comments SARS-CoV-2 (COVID-19) RNA Not detected Not-Detected [Presence] in Respiratory specimen by GUSTAVO with probe detection (test code = 78685-0) 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 (test code = 93971-0) Whether the patient has symptoms related to condition of interest (test code = 79280-9) Patient was hospitalized because of this condition (test code = 59245-5) Whether the patient was admitted to intensive care unit (ICU) for condition of interest (test code = 24931-5) Whether patient resides in a congregate care setting (test code = 89501-0) status (test code = 33817-5) PHI MICHAELSARS-CoV-2 (COVID-19) RNA [Presence] in Respiratory specimen by GUSTAVO with probe dulkuepzd0675-24-48 19:52:10 Test Item Value Reference Range Interpretation Comments SARS-CoV-2 (COVID-19) RNA Not detected Not-Detected [Presence] in Respiratory specimen by GUSTAVO with probe detection (test code = 35780-6) 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 (test code = 22699-9) Whether the patient has symptoms related to condition of interest (test code = 78052-0) Patient was hospitalized because of this condition (test code = 85682-4) Whether the patient was admitted to intensive care unit (ICU) for condition of interest (test code = 22587-9) Whether patient resides in a congregate care setting (test code = 32979-2) status (test code = 48531-3) PHI MICHAELSARS-CoV-2 (COVID-19) RNA [Presence] in Respiratory specimen by GUSTAVO with probe tippsixlv6260-07-73 19:31:11 Test Item Value Reference Range Interpretation Comments SARS-CoV-2 (COVID-19) RNA Not detected Not-Detected [Presence] in Respiratory specimen by GUSTAVO with probe detection (test code = 47600-3) 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 (test code = 88949-1) Whether the patient has symptoms related to condition of interest (test code = 19690-5) Patient was hospitalized because of this condition (test code = 78992-8) Whether the patient was admitted to intensive care unit (ICU) for condition of interest (test code = 79738-2) Whether patient resides in a congregate care setting (test code = 90197-1) status (test code = 23084-4) PHI MICHAELSARS-CoV-2 (COVID-19) RNA [Presence] in Respiratory specimen by GUSTAVO with probe [id number] 02:26:38 Test Item Value Reference Range Interpretation Comments SARS-CoV-2 (COVID-19) RNA Not detected Not-Detected [Presence] in Respiratory specimen by GUSTAVO with probe detection (test code = 63233-5) PHI MICHAELSARS-CoV-2 (COVID-19) RNA [Presence] in Respiratory specimen by GUSTAVO with probe [id number] 21:10:32 Test Item Value Reference Range Interpretation Comments SARS-CoV-2 (COVID-19) RNA Not detected Not-Detected [Presence] in Respiratory specimen by GUSTAVO with probe detection (test code = 53405-3) PHI SAMARITAN [id number]-EbV-2 (COVID-19) RNA [Presence] in Respiratory specimen by GUSTAVO with probe [id number] 19:03:37 Test Item Value Reference Range Interpretation Comments SARS-CoV-2 (COVID-19) RNA Not detected Not-Detected [Presence] in Respiratory specimen by GUSTAVO with probe detection (test code = 31748-3) PHI SAMARITAN UFPEFEUV-ZkC-8 (COVID-19) RNA [Presence] in Respiratory specimen by GUSTAVO with probe [id number] 05:36:17 Test Item Value Reference Range Interpretation Comments SARS-CoV-2 (COVID-19) RNA Not detected Not-Detected [Presence] in Respiratory specimen by GUSTAVO with probe detection (test code = 32075-8) PHI MICHAELSARS-CoV-2 (COVID-19) IgG+IgM Ab [Presence] in Serum or Plasma by [id number] 09:52:00 Test Item Value Reference Range Interpretation Comments SARS-CoV-2 (COVID-19) IgG+IgM Ab Not detected [Presence] in Serum or Plasma by Immunoassay (test code = 29280-9) PHI MICHAELSARS-CoV-2 (COVID-19) RNA [Presence] in Respiratory specimen by GUSTAVO with probe [id number] 04:46:40 Test Item Value Reference Range Interpretation Comments SARS-CoV-2 (COVID-19) RNA [Presence] Detected Not-Detected in Respiratory specimen by GUSTAVO with probe detection (test code = 39986-3) YIP SAMARITAN [id number]-[id number]-2 (COVID-19) RNA [Presence] in Respiratory specimen by GUSTAVO with probe [id number] 00:55:48 Test Item Value Reference Range Interpretation Comments SARS-CoV-2 (COVID-19) RNA Not detected Not-Detected [Presence] in Respiratory specimen by GUSTAVO with probe detection (test code = 34923-2) PHI CORLEY [id number]-WvR-8 (COVID-19) RNA [Presence] in Respiratory specimen by GUSTAVO with probe [id number] 08:17:26 Test Item Value Reference Range Interpretation Comments SARS-CoV-2 (COVID-19) RNA Not detected Not-Detected [Presence] in Respiratory specimen by GUSTAVO with probe detection (test code = 61826-9) PHI MICHAELSARS-CoV-2 (COVID-19) RNA [Presence] in Respiratory specimen by GUSTAVO with probe [id number] 00:04:18 Test Item Value Reference Range Interpretation Comments SARS-CoV-2 (COVID-19) RNA Not detected Not-Detected [Presence] in Respiratory specimen by GUSTAVO with probe detection (test code = 25797-2) PHI DEANRS-CoV-2 (COVID-19) RNA [Presence] in Respiratory specimen by GUSTAVO with probe [id number] 04:41:17 Test Item Value Reference Range Interpretation Comments SARS-CoV-2 (COVID-19) RNA Not detected Not-Detected [Presence] in Respiratory specimen by GUSTAVO with probe detection (test code = 11556-6) PHI DEANRS-CoV-2 (COVID-19) RNA [Presence] in Respiratory specimen by GUSTAVO with probe [id number] 04:13:39 Test Item Value Reference Range Interpretation Comments SARS-CoV-2 (COVID-19) RNA Not detected Not-Detected [Presence] in Respiratory specimen by GUSTAVO with probe detection (test code = 21857-2) PHI MICHAEL
--- NOTE | 2023-03-11 22:09 | RAD REPORT ---
EXAM DESCRIPTION: RAD - Humerus Right - 03/11/2023 10:02 pm CLINICAL HISTORY: PAIN COMPARISON: No comparisonsNo comparisonsNo comparisons FINDINGS/IMPRESSION: Right proximal humerus fracture involving the greater tuberosity. The surgical neck may also be fractured but this is difficult to confirm. No dislocation.
--- NOTE | 2023-03-11 22:15 | RAD REPORT ---
EXAM DESCRIPTION: CT - CTHCSPWOC - 03/11/2023 10:04 pm CLINICAL HISTORY: Trauma, head and neck injury. HEADACHE COMPARISON: Head C Spine Mpr Wo Con dated 03/08/2023; Thoracic Spine W/o Cont dated 08/26/2020; Head C Spine Mpr Wo Con dated 08/26/2020; Head C Spine Mpr Wo Con dated 09/10/2019 TECHNIQUE: Axial 5 mm thick images of the head were obtained. Axial 2 mm thick images of the cervical spine were obtained with sagittal and coronal reconstruction images generated and reviewed. All CT scans are performed using dose optimization technique as appropriate and may include automated exposure control or mA/KV adjustment according to patient size. FINDINGS: CT HEAD WITHOUT CONTRAST: No acute hemorrhage, hydrocephalus or extra-axial collection is identified.No areas of brain edema or midline shift. The paranasal sinuses and mastoids are clear.The calvarium is intact. CT CERVICAL SPINE WITHOUT CONTRAST: No fracture or subluxation.No prevertebral soft tissues swelling is identified. Right maxillary sinus mucous retention cyst . Multilevel cervical spondylosis with varying degrees of neural foraminal jan rowing. IMPRESSION: No acute intracranial or cervical spine findings.
[2023-03-11] MEDS ORDERED: ONDANSETRON 4 MG/2 ML VIAL ONE (23:32)
[2023-03-11] MEDS ORDERED: HYDROMORPHONE HCL 0.5 MG/0.5 ML INJ ONE (23:32)
[2023-03-12 00:18] LABS: Absolute Lymphocytes (CBC) 0.5 K/uL (0.7-4.9); Hematocrit 35.9 % (36.0-45.0); Lymphocytes % 4.4 % (15.3-44.8); MPV 8.9 fL (7.6-11.3); RBC Red Blood Cell Count 3.66 M/uL (3.86-4.86)
[2023-03-12 00:22] LABS: BUN Blood Urea Nitrogen 80 mg/dL (7-18); Bicarbonate 30 mEq/L (21-32); Glomerular Filtration Rate 16 ml/min (=/>90); Glucose Level 233 mg/dL (74-106); Potassium 4.7 mEq/L (3.5-5.1); Sodium Level 139 mEq/L (136-145)
[2023-03-12 00:28] LABS: Specific Gravity 1.011 (1.005-1.030); Urine Bacteria <20 /HPF (<20); Urine Bilirubin NEGATIVE (Negative); Urine Blood Negative (Negative); Urine Clarity Extremely Turbid (Clear); Urine Color Light-Yellow (Yellow); Urine Glucose NEGATIVE (Negative); Urine Protein TRACE (Negative); Urine RBC <5 /HPF (None Seen); Urine Urobilinogen Normal (Normal); Urine pH 6.5 (5.0-7.0)
[2023-03-12] MEDS ORDERED: HYDROMORPHONE HCL 0.5 MG/0.5 ML INJ ONE ×2 (00:28→03:57)
[2023-03-12 01:19] LABS: Blood Morphology Comment NOT SEEN (NOT SEEN); Platelet Estimate ADEQ
--- NOTE | 2023-03-12 02:29 | ER ---
Nurse's Notes [facility] Name: Bella Barron Age: 62 yrs Sex: Female : 1960 Arrival Date: 03/11/2023 Time: 20:59 Bed 14 Private MD: Diagnosis: Fracture of upper end of humerus-right;UTI/ Urinary tract infection, site not specified;Other acute kidney failure;Weakness Presentation: 03/11 21:16 Chief complaint: Patient states: pt had a fall today and reports of right arm pain. as6 Coronavirus screen: At this time, the client does not indicate any symptoms associated with coronavirus-19. Ebola Screen: No symptoms or risks identified at this time. Initial Sepsis Screen: Does the patient meet any 2 criteria? No. Patient's initial sepsis screen is negative. Does the patient have a suspected source of infection? No. Patient's initial sepsis screen is negative. Risk Assessment: Do you want to hurt yourself or someone else? Patient reports no desire to harm self or others. Onset of symptoms was March 11, 2023. 21:16 Acuity: OLEG 3 as6 21:16 Method Of Arrival: Wheelchair as6 Triage Assessment: 21:19 General: Appears uncomfortable, Behavior is calm, cooperative. Pain: Complains of pain as6 in right arm. Historical: - Allergies: 21:20 ceftriaxone; as6 21:20 Ciprofloxacin; as6 21:20 EGG/POULTRY; as6 21:20 Iodine; as6 21:20 LACTASE; as6 21:20 Promethazine; as6 - PMHx: 21:20 cirrhosis of liver; Crohn's Disease; hypotension; kidney disease; trach removed Nov as2021; - Immunization history:: Client reports receiving the 2nd dose of the Covid vaccine. - Social history:: Smoking status: Patient reports the use of cigarette tobacco products, smokes one pack cigarettes per day. Screenin:49 [facility] ED Fall Risk Assessment (Adult) History of falling in the last 3 months, jb4 including since admission Yes- single mechanical fall (1 pt) Confusion or Disorientation No (0 pts) Score/Fall Risk Level 0 - 2 = Low Risk Oriented to surroundings, Maintained a safe environment. Abuse screen: Denies threats or abuse. Nutritional screening: No deficits noted. Tuberculosis screening: No symptoms or risk factors identified. Assessment: 23:48 General: Appears in no apparent distress. uncomfortable, Behavior is cooperative, jb4 crying. Pain: Complains of pain in right arm Pain does not radiate. Pain currently is 8 out of 10 on a pain scale. Neuro: Level of Consciousness is awake, alert, obeys commands, Oriented to person, place, time, situation. Cardiovascular: Patient's skin is warm and dry. Respiratory: Airway is patent Respiratory effort is even, unlabored, Respiratory pattern is regular, symmetrical. GI: No signs and/or symptoms were reported involving the gastrointestinal system. : No signs and/or symptoms were reported regarding the genitourinary system. EENT: No signs and/or symptoms were reported regarding the EENT system. Derm: Skin is intact, Skin is pink, warm \T\ dry. Musculoskeletal: Circulation, motion, and sensation intact. Range of motion: limited in right shoulder. 03/12 00:56 Reassessment: Patient appears in no apparent distress at this time. Patient and/or jb4 family updated on plan of care and expected duration. Pain level reassessed. Patient is alert, oriented x 3, equal unlabored respirations, skin warm/dry/pink. 01:51 Reassessment: Pt left ED to go outside. jb4 03:45 Reassessment: Patient appears in no apparent distress at this time. Patient and/or jb4 family updated on plan of care and expected duration. Pain level reassessed. Patient is alert, oriented x 3, equal unlabored respirations, skin warm/dry/pink. Vital Signs: 03/11 21:16 BP 128 / 82; Pulse 91; Resp 18 S; Temp 98.2(O); Pulse Ox 97% on R/A; Weight 68.04 kg as6 (R); Height 4 ft. 11 in. (R); Pain 9/10; 23:25 BP 139 / 99; Pulse 88; Resp 18; Pulse Ox 100% on R/A; jb4 03/12 00:00 BP 151 / 94; Pulse 82; Resp 16; Pulse Ox 99% ; jb4 02:21 BP 152 / 92; Pulse 76; Resp 16; Pulse Ox 98% on R/A; jb4 03:51 BP 188 / 83; Pulse 85; Resp 16; Pulse Ox 96% on R/A; jb4 03/11 21:16 Body Mass Index 30.30 (68.04 kg, 149.86 cm) as6 03/11 21:16 Pain Scale: Adult as6 ED Course: 03/11 21:01 Patient arrived in ED. jj6 21:03 James Busby PA is PHCP. cp 21:03 Jonathon Jeter MD is Attending Physician. cp 21:19 Triage completed. as6 21:20 Arm band placed on. as6 22:04 XRAY Humerus RIGHT In Process Unspecified. EDMS 22:06 CT Head C Spine In Process Unspecified. EDMS 23:49 Initial lab(s) drawn, by vt, sent to lab. Inserted saline lock: 22 gauge in left jb4 antecubital area, using aseptic technique. Blood collected. 23:50 Leon Lowery, RN is Primary Nurse. 4 03/12 00:52 CT Chest Abdomen Pelvis W/O Contrast In Process Unspecified. EDMS 01:46 Initiated transfer with Hayden Alma. rv1 02:35 SARS RAPID Sent. bc6 02:36 Lactate w/ 2H reflex if indic. Sent. bc6 02:36 Blood Culture Adult (2) Sent. bc6 03:52 No provider procedures requiring assistance completed. Patient transferred, IV remains jb4 in place. Administered Medications: 03:35 Discontinued: NS 0.9% IV 1000 ml IV at 500 ml/hr Per protocol; 1000 mL bolus banner 03/11 22:11 CANCELLED (Physician Discretion): fentaNYL (PF) IVP 25 mcg IVP once cp 23:51 Drug: Ondansetron IVP 4 mg Route: IVP; Site: left antecubital; banner 23:51 Drug: HYDROmorphone IVP 0.5 mg Route: IVP; Site: left antecubital; 4 03/12 00:25 Drug: HYDROmorphone IVP 0.5 mg Route: IVP; Site: left antecubital; 4 02:31 Drug: HYDROmorphone IVP 1 mg Route: IVP; Site: left antecubital; banner 02:56 Drug: NS 0.9% IV 1000 ml Route: IV; Rate: 500 ml/hr; Site: left antecubital; 4 03:39 Drug: NS 0.9% IV 1000 ml Route: IV; Rate: 100 ml/hr; Site: left antecubital; jb4 03:51 Drug: HYDROmorphone IVP 0.5 mg Route: IVP; Site: left antecubital; jb4 Outcome: 02:28 ER care complete, transfer ordered by MD. sykes 03:52 Transferred by ground EMS [facility] to [facility], Transfer form completed. jb4 X-rays sent w/ patient. 03:52 Condition: stable 03:52 Discharge instructions given to patient, Instructed on the need for transfer, Demonstrated understanding of instructions. 03:52 Patient left the ED. jb4 Signatures: Dispatcher [employer] EDMS James Busby PA PA cp Bryson, James, RN RN jb4 Alka Garciaj6 Toni Loza RN RN as6 Britany Pascual rv1 Tasia Knowles 6
--- NOTE | 2023-03-12 02:29 | EDPHYS ---
Physician Documentation [facility] Name: Bella Barron Age: 62 yrs Sex: Female : 1960 Arrival Date: 03/11/2023 Time: 20:59 Bed 14 Private MD: ED Physician Jonathon Jeter HPI: 03/11 21:30 This 62 yrs old Female presents to ER via Wheelchair with complaints of Fall Injury, cp Arm Injury. 21:30 Details of fall: The patient fell from an upright position, while standing. Onset: The cp symptoms/episode began/occurred today. Associated injuries: The patient sustained right upper arm, decreased range of motion, painful injury. Patient is a 62-year-old female with past medical history of Crohn's disease, kidney disease and liver cirrhosis who presents to the emergency department with complaints of right upper arm and shoulder pain that she sustained from a fall this evening. During further questioning patient admits to here recently having multiple falls and was seen here recently for fall after hitting her head. Patient does not believe she hit her head with today's fall and there was no observed loss of consciousness. The is expressing concern that patient may have a urinary tract infection as he has noticed her to be unsteady when standing and observing her legs to be trembling which usually indicates a possible urinary tract infection. Historical: - Allergies: 21:20 ceftriaxone; as6 21:20 Ciprofloxacin; as6 21:20 EGG/POULTRY; as6 21:20 Iodine; as6 21:20 LACTASE; as6 21:20 Promethazine; as6 - PMHx: 21:20 cirrhosis of liver; Crohn's Disease; hypotension; kidney disease; trach removed Nov 2021; - Immunization history:: Client reports receiving the 2nd dose of the Covid vaccine. - Social history:: Smoking status: Patient reports the use of cigarette tobacco products, smokes one pack cigarettes per day. ROS: 21:33 Constitutional: Negative for body aches, chills, fever. cp 21:33 Eyes: Negative for injury, pain, redness, and discharge. cp 21:33 Cardiovascular: Negative for chest pain, palpitations. 21:33 Respiratory: Negative for cough, shortness of breath, wheezing. 21:33 Abdomen/GI: Negative for abdominal pain, vomiting, diarrhea, constipation. 21:33 Back: Negative for pain at rest, pain with movement. 21:33 MS/extremity: Positive for decreased range of motion, pain, tenderness, of the right shoulder and right upper arm, Negative for paresthesias. 21:33 Neuro: Positive for weakness, Negative for altered mental status, loss of consciousness, syncope. 21:33 All other systems are negative. Exam: 21:40 Constitutional: The patient appears in no acute distress, alert, awake, cp non-diaphoretic, non-toxic, well developed, well nourished, uncomfortable. 21:40 Head/Face: Normocephalic, atraumatic. cp 21:40 Eyes: Periorbital structures: appear normal, Pupils: equal, round, and reactive to light and accomodation, Extraocular movements: intact throughout, Conjunctiva: normal, no exudate, no injection, Sclera: no appreciated abnormality, Lids and lashes: appear normal, bilaterally. 21:40 ENT: External ear(s): are unremarkable, Nose: is normal, Mouth: Lips: moist, Oral mucosa: pink and intact, moist, Posterior pharynx: Airway: no evidence of obstruction, patent. 21:40 Neck: C-spine: vertebral tenderness, is not appreciated, crepitus, is not appreciated. 21:40 Chest/axilla: Inspection: normal, Palpation: crepitus, is not appreciated, tenderness, is not appreciated. 21:40 Cardiovascular: Rate: normal, Rhythm: regular, Edema: is not appreciated, JVD: is not appreciated. 21:40 Respiratory: the patient does not display signs of respiratory distress, Respirations: normal, no use of accessory muscles, no retractions, labored breathing, is not present, Breath sounds: are clear throughout, no decreased breath sounds, no stridor, no wheezing. 21:40 Abdomen/GI: Inspection: abdomen appears normal, Bowel sounds: active, all quadrants, Palpation: abdomen is soft and non-tender, in all quadrants. 21:40 Back: pain, that is mild. 21:40 Musculoskeletal/extremity: Extremities: noted in the right shoulder and right upper arm: decreased ROM, pain, swelling, tenderness, ROM: limited passive range of motion due to pain, in the right shoulder, Pulses: noted to be 2+ in the right radial artery and left radial artery. 21:40 Skin: cellulitis, is not appreciated, no rash present. 21:40 Neuro: Orientation: to person, place \T\ time. Mentation: able to follow commands, Sensation: no obvious gross deficits. 03/12 02:38 ECG was reviewed by the Attending Physician. Vital Signs: 03/11 21:16 BP 128 / 82; Pulse 91; Resp 18 S; Temp 98.2(O); Pulse Ox 97% on R/A; Weight 68.04 kg as6 (R); Height 4 ft. 11 in. (R); Pain 9/10; 23:25 BP 139 / 99; Pulse 88; Resp 18; Pulse Ox 100% on R/A; jb4 03/12 00:00 BP 151 / 94; Pulse 82; Resp 16; Pulse Ox 99% ; jb4 02:21 BP 152 / 92; Pulse 76; Resp 16; Pulse Ox 98% on R/A; jb4 03:51 BP 188 / 83; Pulse 85; Resp 16; Pulse Ox 96% on R/A; jb4 03/11 21:16 Body Mass Index 30.30 (68.04 kg, 149.86 cm) as6 03/11 21:16 Pain Scale: Adult as6 MDM: 03/11 21:22 Patient medically screened. 22:00 Differential diagnosis: closed head injury, contusion, fracture, multiple trauma, uti, cp sepsis. 03/12 03:00 ED course: patient accepted as transfer to [facility] in the [facility] by DR Erasmo sykes w/o doc to doc. 03:00 Data reviewed: vital signs, nurses notes, lab test result(s), EKG, radiologic studies, CT scan, plain films. 03:00 I considered the following discharge prescriptions or medication management in the emergency department Medications were administered in the Emergency Department. See MAR. Independent interpretation of the following test(s) in the Emergency Department EKG: See my EKG interpretation above. Care significantly affected by the following chronic conditions: Chronic Kidney Disease, Liver Disease. Counseling: I had a detailed discussion with the patient and/or guardian regarding: the historical points, exam findings, and any diagnostic results supporting the discharge/admit diagnosis, lab results, radiology results, the need to transfer to another facility, continuity of care. Response to treatment: the patient's symptoms have mildly improved after treatment. 03/11 21:25 Order name: Basic Metabolic Panel 03/12 01:39 Interpretation: Normal except: GLUC 233; BUN 80; CRE 3.10; GFR 16; CA 8.2. 03/11 21:25 Order name: CBC with Diff; Complete Time: 01:39 cp 03/12 01:41 Interpretation: Normal except: WBC 11.70; RBC 3.66; HCT 35.9; PLT 128; RDW 18.4; CARIN% cp 92.3; LYM% 4.4; MN% 3.1; NEUT A 10.8; LYMA 0.5. 03/11 21:25 Order name: Type And Screen; Complete Time: 01:39 03/11 21:25 Order name: Urinalysis w/ reflexes; Complete Time: 01:39 03/12 01:41 Interpretation: Normal except: [facility] Extremely Turbid; UPROT TRACE; UNIT 2+. 03/12 00:22 Order name: Manual Differential; Complete Time: 01:39 EDGA 03/12 01:45 Order name: Blood Culture Adult (2) 03/12 01:45 Order name: Lactate w/ 2H reflex if indic.; Complete Time: 03:27 cp 03/12 03:27 Interpretation: Abnormal: LAC 2.1. 03/12 01:56 Order name: SARS RAPID; Complete Time: 03:27 as6 03/12 02:49 Order name: Liver (Hepatic) Function [facility] 03/11 21:25 Order name: XRAY Humerus RIGHT; Complete Time: 22:52 03/11 21:25 Order name: CT Head C Spine; Complete Time: 22:52 03/11 22:55 Order name: CT Chest Abdomen Pelvis W/O Contrast 03/12 01:48 Order name: EKG; Complete Time: 01:48 cp 03/11 21:25 Order name: Labs collected and sent; Complete Time: 23:51 cp 03/11 22:54 Order name: Sling; Complete Time: 00:25 cp 03/12 01:48 Order name: EKG - Nurse/Tech; Complete Time: 02:35 cp EC:38 Rate is 76 beats/min. Rhythm is regular. CA interval is normal. QRS interval is cp prolonged at 114 msec. QT interval is normal. T waves are Inverted in leads III, aVR, V2, V3. Interpreted by me. Reviewed by me. Administered Medications: 03:35 Discontinued: NS 0.9% IV 1000 ml IV at 500 ml/hr Per protocol; 1000 mL bolus jb4 03/11 22:11 CANCELLED (Physician Discretion): fentaNYL (PF) IVP 25 mcg IVP once cp 23:51 Drug: Ondansetron IVP 4 mg Route: IVP; Site: left antecubital; jb4 23:51 Drug: HYDROmorphone IVP 0.5 mg Route: IVP; Site: left antecubital; jb4 03/12 00:25 Drug: HYDROmorphone IVP 0.5 mg Route: IVP; Site: left antecubital; jb4 02:31 Drug: HYDROmorphone IVP 1 mg Route: IVP; Site: left antecubital; jb4 02:56 Drug: NS 0.9% IV 1000 ml Route: IV; Rate: 500 ml/hr; Site: left antecubital; jb4 03:39 Drug: NS 0.9% IV 1000 ml Route: IV; Rate: 100 ml/hr; Site: left antecubital; jb4 03:51 Drug: HYDROmorphone IVP 0.5 mg Route: IVP; Site: left antecubital; jb4 Disposition: 05:57 Co-signature as Attending Physician, Jonathon Jeter MD I agree with the assessment sp4 and plan of care. I reviewed the patient's care provided by Advanced Practice Provider \T\ agree w/ the diagnosis \T\ care plan. I personally saw the pt \T\ performed a substantive portion of the visit, incldng all aspects of the (History/Exam/Medical Decision Making). Disposition Summary: 03/12/23 02:28 Transfer Ordered Transfer Location: [facility] cp Reason: Higher level of care cp Condition: Stable cp Problem: new cp Symptoms: have improved cp Accepting Physician: DR Zimmerman(03/12/23 03:52) jb4 Diagnosis - Fracture of upper end of humerus - right cp - UTI/ Urinary tract infection, site not specified cp - Other acute kidney failure cp - Weakness cp Forms: - Medication Reconciliation Form cp - SBAR form cp Signatures: Dispatcher [employer] EDMS James Busby PA PA cp Leon Lowery RN RN jb4 Toni Loza RN RN as6 Jonathon Jeter MD MD sp4 Corrections: (The following items were deleted from the chart) 03/11 22:11 21:25 fentaNYL (PF) IVP 25 mcg IVP once ordered. onel sykes 03/12 02:12 03/11 21:30 Patient is a 62-year-old female with past medical history of Crohn's cp disease, kidney disease and liver cirrhosis who presents to the emergency department with complaints of right upper arm and shoulder pain that she sustained from a fall this evening. During further questioning patient admits to here recently having multiple falls and was seen here recently for fall after hitting her head. Patient does not believe she hit her head with today's fall and there was no observed loss of consciousness. cp 03/12 02:13 02:11 Constitutional: Negative for cp cp 02:49 01:45 HEPATIC FUNCTION+C.LAB.BRZ ordered. EDMS EDMS 03:00 02:28 Doctor onel cp 03:52 03:00 DR Erasmo sykes jb4
[2023-03-12 02:37] LABS: SARS-CoV-2 Antigen Rapid Res Negative (Negative)
[2023-03-12] MEDS ORDERED: HYDROMORPHONE HCL 1 MG/ML INJ ONE (02:38)
[2023-03-12] MEDS ORDERED: NA CHLORIDE 0.9% 1,000 ML ONE (02:42)
[2023-03-12 03:52] LABS: ALT/SGPT 23 U/L (13-56); AST/SGOT 12 U/L (15-37); Albumin 3.6 g/dL (3.4-5.0); Alkaline Phosphatase 56 U/L (45-117); Bilirubin Total 0.5 mg/dL (0.2-1.0); Protein, Total 6.3 g/dL (6.4-8.2)
[2023-03-12 03:54] LABS: Bilirubin Direct < 0.1 mg/dL (0-0.2); Bilirubin Indirect, Calculated ND mg/dL (0.2-0.8)
[2023-03-12 04:30] VITALS: TEMP 98.2
[2023-03-12 04:39] VITALS: BP 188/83; O2SAT 96
--- NOTE | 2023-03-12 17:09 | RAD REPORT ---
EXAM DESCRIPTION: CT Chest, Abdomen and Pelvis Without Intravenous Contrast CLINICAL HISTORY: The patient is 62 years old and is Female; fall BR MAIN TECHNIQUE: Axial computed tomography images of the chest, abdomen and pelvis without intravenous con trast. Sagittal and coronal reformatted images were created and reviewed. This CT exam was perfor med using one or more of the following dose reduction techniques: automated exposure control, adjus tment of the mA and/or kV according to patient size, and/or use of iterative reconstruction technique . COMPARISON: 12/24/2022 CT abdomen pelvis without contrast FINDINGS: CHEST: LUNGS: Unremarkable. No mass. No consolidation. PLEURAL SPACE: Unremarkable. No significant effusion. No pneumothorax. HEART: No cardiomegaly. No significant pericardial effusion. No significant coronary artery ca lcifications. ABDOMEN: LIVER: Surgical clips redemonstrated about the intrahepatic IVC. No focal hepatic parenchymal abnor mality. GALLBLADDER AND BILE DUCTS: Cholecystectomy. No ductal dilation. PANCREAS: Unremarkable. No ductal dilation. SPLEEN: Splenomegaly redemonstrated. ADRENALS: Unremarkable. No mass. KIDNEYS AND URETERS: Tiny bilateral nonobstructive intrarenal stones. No hydronephrosis or obstruct chago intrarenal or intraureteral stones. STOMACH AND BOWEL: No obstruction. No mucosal thickening. PELVIS: APPENDIX: At least partial appendectomy surgical material demonstrated about the cecum and what appea rs to be a residual appendiceal stump. No associated inflammatory changes to suggest acute appendicit is. BLADDER: Unremarkable. No stones. REPRODUCTIVE: Unremarkable as visualized. CHEST, ABDOMEN and PELVIS: INTRAPERITONEAL SPACE: No significant fluid collection. No free air. BONES/JOINTS: Comminuted nondisplaced fractures of the right humeral head and greater tuberosity. Nondisplaced, nondepressed fractures of the lateral right ninth rib and lateral fifth through eighth ribs. No dislocation. SOFT TISSUES: Left axillary and subpectoral surgical clips noted. Ventral abdominal wall hernia repair changes noted. Mild subcutaneous soft tissue contusion suspected over the right greater trochanter. VASCULATURE: No aneurysmal dilatation or intramural hematoma. LYMPH NODES: Unremarkable. No enlarged lymph nodes. IMPRESSION: 1. Comminuted nondisplaced fracture of the right humeral head and greater tuberosity. 2. Nondisplaced, nondepressed fractures of the lateral right ninth rib and lateral fifth through ei ghth ribs. 3. Allowing for lack of intravenous contrast, no acute abnormality within the abdomen or pelvis. 4. Mild subcutaneous soft tissue contusion suspected over the right greater trochanter. Electronically signed by: Tristan Simmons MD 03/12/2023 1:40 AM CDT Due to temporary technical issues with the PACS/Fluency reporting system, reports are being signed by the in house radiologists without review as a courtesy to insure prompt reporting. The interpreting radiologist is fully responsible for the content of the report.
--- NOTE | 2023-03-13 17:39 | EKG ---
Test Date: 2023-03-12 Test Time: 02:31:46 Batching Operator: HAWK MEASUREMENT RESULTS: Intervals: Rate: 76 SD: 146 QRSD: 114 QT: 388 QTc: 436 Wendell: P: 27 SD: 146 QRS: -7 T: 2 INTERPRETIVE STATEMENTS: Normal sinus rhythm Right bundle branch block Cannot rule out Anterior infarct, age undetermined Abnormal ECG Compared to ECG 12/24/2022 14:05:53 Myocardial infarct finding now present Sinus bradycardia no longer present Electronically Signed On 03-13-23 17:34:45 CDT by Javy Paz
== END 2023-03-12 03:52 | disposition short-term general hospital (02) ==
LOC: ER 20:59
DX: S42.201A Unspecified fracture of upper end of right humerus, initial encounter for closed fracture (principal); N39.0 Urinary tract infection, site not specified; N17.8 Other acute kidney failure; R53.1 Weakness; Z20.822 Contact with and (suspected) exposure to COVID-19; F17.210 Nicotine dependence, cigarettes, uncomplicated; Z88.1 Allergy status to other antibiotic agents; Z88.8 Allergy status to other drugs, medicaments and biological substances; Z91.012 Allergy to eggs; Z91.048 Other nonmedicinal substance allergy status
CPT/HCPCS: 93005; 87040 ×2; 85025; 81001; 80048; 36415; 86900; 86850; 86901; 80076; 83605; 70450; 71250; 72125; 74176; 73060; 87811; J1170 ×4; J2405; J7030

== ENCOUNTER 2023-03-22 19:56 | Emergency (ER) | payer OTHER ==
--- OUTSIDE RECORDS SUMMARY | 2023-03-22 20:40 | XMS REPORT | Continuity of Care Document ---
:1960 Author Organization [facility] t Address [address] [place] [address] Care Team Providers Name Role Phone Eldernata Calos Bustamante Primary Care Physician [phone] Fernando Man Attending Clinician Unavailable RIANA MARTELL Attending Clinician Unavailable IVIS GARVEY Attending Clinician [...] SALLY AGUDELO Attending Clinician Unavailable Doctor Unassigned, [place] Attending Clinician Unavailable Dashawn FRANKLIN, Mercy Robison Attending Clinician Cam LAMAR, Libby Attending Clinician LIBBY LEVY Attending Clinician Unavailable Michael FRANKLIN, Kendy Dalal Attending Clinician [phone] KENDY HALL Attending Clinician Unavailable Silvio FRANKLIN, Dawna Attending Clinician Isabella FRANKLIN, Zara Stevenson Attending Clinician [phone] Vj FRANKLIN, Shiela Man Attending Clinician [...] Clinician Unavailable Wild Kovacs DO Attending Clinician [phone] Cliff Levy MD Attending Clinician MD CALOS GARCIA Attending Clinician Unavailable Freedom Gutierrez DO Attending Clinician Robby Perez MD Attending Clinician [phone] MD HERIBERTO YORK Attending Clinician Unavailable MD PIERCE MARSHALL Attending Clinician Unavailable NOBLE ALMEIDA Attending Clinician Unavailable YIFAN CUMMINS Attending Clinician Unavailable MERCY RUEDA Attending Clinician Unavailable MD HERMILO CAHMPION Attending Clinician Unavailable JUNO DIAL Attending Clinician Unavailable DO MERCY RUEDA Attending Clinician Unavailable EBONY ROPER Attending Clinician Unavailable RA RHODES Attending Clinician Unavailable Lita Fuchs S Attending Clinician LITA CORRIGAN S Attending Clinician Unavailable YOVANY TAVERAS Attending Clinician Unavailable Anabell Ma RN Attending Clinician Akanksha Jensen MD Attending Clinician Indra Motta MD Attending Clinician Lizy Taylor MD Attending Clinician RIANA MARTELL Admitting Clinician Unavailable MD DIANA BANGURA Admitting Clinician Unavailable PEDRO [...] Expiration Date S pedro MEDICARE A B [id number] 2015 00:00:00 GENERIC MEDICAID [id number] 2021 HMO 00:00:00 WELLMED/UHC DUAL [id number] 2022 COMP HMO D SNP 00:00:00 LEACH [id number] 2022 HEALTHCARE STAR 00:00:00 PLUS MEDICARE PART A [id number] 2015 \\T\\ B 00:00:00 MEDICAID [place] [id number] 2018 [place] 00:[place]:00 [facility] [id number] Common [facility] MEDICARE NOVITAS [id number] 2015 Common 00:00:00 [facility] [id number] Common [facility] MEDICARE NOVITAS [id number] 2015 Common 00:00:00 [facility] MEDICARE NOVITAS [id number] 2015 Common 00:00:00 [facility] [id number] Common [facility] MEDICARE NOVITAS [id number] 2015 Common 00:00:00 [facility] [id number] Common [facility] [id number] Common [facility] MEDICARE NOVITAS MB [id number] 2015 Common 00:00:00 [facility] [id number] Common [facility] MEDICARE NOVITAS [id number] 2015 Common 00:00:00 [facility] MEDICARE NOVITAS [id number] 2015 Common 00:00:00 [facility] [id number] Common Spirit [facility] MEDICARE NOVITAS [id number] 2015 Common 00:00:00 [facility] [id number] [facility] MEDICARE NOVITAS [id number] 2015 Common 00:00:00 [facility] [id number] [facility] Problems Condition Condition Condition Status Onset Resolution Last Treating Co mments Source Name Details Category Date Date Treatment Clinician Date Altered Altered Disease Active [facility] mental mental 09-[address] [facility] status status 00:00: Medical 00 Center [...] Added automatic ally from request for surgery [id number] Chronic Chronic Disease Active 2020-08 [facility] kidney [...] Hospita 00 l Confusion Confusion Disease Active [address] 00:00: Hospita 00 l Acute Acute Disease Active 2018-08 [facility] hepatic hepatic 1 st encephalop encephalop 00:00: Ho spita athy athy 00 l Slurred Slurred Disease Active 2019 [facility] speech speech 05-08 00:00: Hospita 00 l CAM (acute CAM (acute Disease Active 0 M ethodi kidney kidney 05-08 injury) injury) 00:00: Hospita 00 l UTI UTI Disease Active Methodi (urinary (urinary 04-14 tract tract 00:00: Hospita infection) infection) 00 l Altered Altered Disease Active [facility] mental mental 03-19 status, status, 00:00: Hospita unspecifie unspecifie 00 l d d Hematochez Hematochez Disease Active U nivers ia ia 03-06 ity of 00:00: [place] [id number] Medical Branch Abdominal Abdominal Disease Active Met hodi pain pain 11-12 00:00: Hospita 00 l Weakness Weakness Disease Active Metho di 08-20 00:00: Hospita 00 l Chest pain Chest pain Disease Active 20190 M ethodi on on 08-20 breathing breathing 00:00: Hosp page 00 l Non-intrac Non-intrac Disease Active 2018-0 M ethodi table table 08-20 vomiting vomiting 00:00: Hospit a with with 00 l nausea nausea Gastroesop Gastroesop Disease Active 2019-0 M ethodi hageal hageal 08-20 reflux reflux 00:00: Hospita disease disease 00 l CAM (acute CAM (acute Disease Active 2019 M ethodi kidney kidney 08-20 injury) injury) 00:00: Hospita 00 l Disorder Disorder Disease Active Metho di of liver of liver 08-20 00:00: Hospita 00 l Acute Acute Disease Active Methodi hepatic hepatic 2 st encephalop encephalop 00:00: Ho yusufta athy athy 00 l Hematochez Hematochez Disease Active 20170 M ethodi ia ia 12-11 st 00:00: Hospita 00 l Melena Melena Disease Active Overview: Method i 12-[address] 00:00: g of this Hospita 00 note l might be different from the original. Added automatic ally from request for surgery [id number] Persistent Persistent Disease Active M ethodi depressive depressive 2-28 st disorder disorder 00:00: Hospit a 00 l 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 2-02 it y of athy athy 00:00: [address] Hepatic Hepatic Disease Active 2015-08 Methodi encephalop encephalop 1-15 st athy athy 00:00: Hospita 00 l Thrombocyt Thrombocyt Disease Active M ethodi openia openia 05-04 00:00: Hospita 00 l Malnutriti Malnutriti Disease Active M ethodi on on 05-04 00:00: Hospita 00 l Right Right Disease Active Univers shoulder shoulder 4-25 ity of pain pain 00:00: [place] [facility] Anxiety Anxiety Disease Active Univers and and 4- ity of depression [place] [facility] Rectal Rectal Disease Active 2014-08 Univers bleed bleed 2- ity of 00:00: [address] Cirrhosis Cirrhosis Disease Recurre [facility] Crohn Crohn Disease Recurre [facility] disease disease [facility] [id number] Secondary Problem Comm on esophageal Spirit varices - [facility]I without [facility] bleeding 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 portosyste Medica l jacqueline shunt) [facility]iner [id number] MCFARLANE Problem Common (nonalcoho Spirit lic - CHI steatohepa [facility]) 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 Fatigue Fatigue Problem Common Spirit - [facility] Chronic Chronic Problem Common pain pain Spirit - [facility] Anxiety Anxiety Problem Common Spirit - [facility] Depression Depression Problem C ommon Spirit - [facility] Kidney Kidney Problem Common [facility] Thrombocyt [facility]rombocyt [facility] open[facility] openia [facility] Bipolar Bipolar Problem Common disorder disorder [facility] Restless Restless Problem Commo n legs legs Spirit syndrome syndrome - [facility] [id number] Inflammato Problem Com mon ry bowel Spirit disease [facility] [id number] Incontinen Problem Com mon ce of Spirit feces, - [facility] unspecifie St d fecal [facility] incontinen Medica l ce type Center Body mass BMI Problem Common index 40+ 40.0-44.9, Spi rit - morbidly adult - [facility] obese [facility] Allergic Seasonal Problem Commo n rhinitis and Spirit perennial - [facility] allergic rhinitis [facility] Irritable Irritable Problem Com mon bowel bowel Spirit syndrome syndrome - [facility] without diarrhea [facility] [id number] Adult BMI Problem Com mon 35.0-35.9 Spirit kg/sq [facility] [id number] Insomnia, Problem Com mon unspecifie Spirit d type [facility] Migraine Migraine Problem Commo n [facility] Gout Gout Problem Common [facility] Allergies, Adverse Reactions, Alerts Allergy Allergy Status Severity Reaction(s) Onset Inactive Treating Comm ents Source Name Type Date Date Clinician Shellfis Drug Active [facility] All[facility] Containi 00:00: Medical ng 00 [employer] Fish Drug Active [facility] Containi Allergy [facility]- [facility]ukes ng 00:00: Medical Products 00 Riner Shellfis Drug Active [facility] Allergy 2- [facility] Containi 00:00: Medical ng 00 [employer] FISH Allergy Active [facility] CONTAINI 2- [facility]ukes NG 00:00: Medical PRODUCTS 00 [employer] SHELLFIS Allergy Active [facility] H 2- [facility]ukes CONTAINI 00:00: Medical NG 00 [employer] PRODUCTS Fish Drug Active [facility] Containi Allergy 2- Lukes ng 00:00: Medical Products 00 [employer] EGGSHELL Allergy Active [facility] MEMBRANE 09-07 Lukes 00:00: Medical 00 [place] Eggshell Drug Active [facility] Membrane Allergy 09-07 [facility]ukes 00:00: Medical 00 Center CEFTRIAX Allergy Active [facility] ONE 09-02 [...] to drug Ceftriax Propensi Active Itching 2017-0 Metho di one ty to 10-06 st adverse 00:00: Hospita reaction 00 l s to drug Ceftriax Propensi Active Itching 2018-0 Unive rs one ty to 2- ity of adverse 00:00: [place] reaction 00 [facility] Branch CEFTRIAX DRUG Active ITCHING 2018-0 Univers ONE INGREDI 2- ity of 00:00: [place] 00 [facility] Prometha Propensi Active Other - See 2017-0 Severe U nivers zine ty to comments 11-05 confusion ity o f adverse 00:00: [place] reaction 00 [facility] PROMETHA DRUG Active Other-Cmnt 2017-0 Univ ers ZINE INGREDI 3- ity of 00:00: [place] 00 [facility] Branch Eggshell Propensi Active Diarrhea 2017-0 Egg yoke Me thodi Membrane ty to 2 st adverse 00:00: Hospita reaction 00 l s to drug Eggshell Propensi Active Diarrhea 2017-0 Egg yoke Un linda Membrane ty to 2- ity of adverse 00:00: [place] reaction 00 Medical s Branch EGGSHELL DRUG Active Diarrhea 2017-0 Univer s MEMBRANE INGREDI 2- ity of 00:00: [place] 00 [facility] Branch Prometha Propensi Active Other (See 2017-0 Severe Me thodi zine ty to Comments) 1- confusion st adverse 00:00: Hospita reaction 00 l s to drug Shellfis Propensi Active Anaphylaxis 2015- M ethodi h ty to 05-05 st Derived adverse 00:00: Hospita reaction 00 l s to drug Shellfis Propensi Active Anaphylaxis 2015- U nivers h ty to 05-05 ity of Derived adverse 00:00: [place] reaction 00 Medical s Branch SHELLFIS DRUG Active High Anaphylaxis Uni vers H INGREDI 05-05 ity of DERIVED 00:00: [place] 00 Medical Branch Iodine Propensi Active Anaphylaxis SOB, Met hodi ty to 05-01 wheezing, st adverse 00:00: "my Hospita reaction 00 throat l s to closes drug up."*pt states cannot have topical nor IV Iodine Propensi Active Anaphylaxis Uni vers ty to 03-29 ity of adverse 00:00: [place] reaction 00 Medical s [place] IODINE DRUG Active Anaphylaxis Unive rs INGREDI 03-29 ity of 00:00: [place] 00 [facility] 463 Drug Active Unknown Common allergy [facility] prometha prometha Active Unknown Commo n zine zine [facility] NO KNOWN Allergy Active [facility] ALLERGIE S Family History Family Member Diagnosis Comments Start Date Stop Date Source Natural father No Known Problems Met [facility] Natural mother No Known Problems Met [facility] Social History Social Habit Start Date Stop Date Quantity Comments Source History [facility] Alcohol Std Drinks Medica [facility] History SD[facility] Alcohol Binge Medical [address] ter Exposure to Not sure University of SARS-CoV-2 (event) [facility] History of Tobacco Common Spirit - Use [facility] History SDOH 2021-09-02 2021-09-[address] [facility] Alcohol Frequency 00:00:00 00:00:00 [facility] Alcohol intake 2021-09-02 2021-09-[address] Alejo es 00:00:00 00:00:00 non-drinker Medical Nitza villeda (finding) Tobacco use and 2019-01-30 2019-01-30 Smokeless tobacco Un iversity of exposure 00:00:00 00:00:00 non-user [facility] Cigarettes smoked 2016-11-22 2016-11-[address] current (pack per 00:00:00 00:00:00 Hospita l day) - Reported Cigarette 2016-11-22 2016-11-22 [facility] pack-years 00:00:00 00:00:00 Hospital Tobacco Comment 2016-09-12 2016-09-12 smokes 5 [facility] 00:00:00 00:00:00 cigarettes per Hospital day Alcohol Comment 2016-05-02 2016-05-02 Former social Method ist 00:00:00 00:00:00 [facility] use[facility]; denies history of heavy alcohol use Sex Ass[birth year] [facility] ke 00:00:00 00:00:00 [facility] Center Smoking Status Start Date Stop Date Source Former Smoker 2021-10-13 00:00:00 2021-10-13 00:00:00 Common S pirit - [facility] Ce nter Never smoked tobacco [facility] Medications Ordered Filled Start Stop Current Ordering Indication Dosage Frequency Signature Comments Components Source Medication Medication Date Date Medication? Clinician (SIG) Name Name ketorolac No 30mg 30 mg, Unive rs (TORADOL) 11-07 Intramuscu ity of injection 19:15: 18:35 lar, ONCE, [place] 30 mg 00 :00 1 dose, On Medical 11/07/22 at 1415, Routine estradioL Yes [id number] Apply 1g Univers (ESTRACE) 2-21 vaginally ity o f 0.01 % (0.1 00:00: at bedtime [place] mg/gram) 00 every Medical vaginal night for Branch cream 2 weeks and then apply 1g vaginally at bedtime 3 times per week (Saturday//) nystatin Yes [id number] Apply to Un linda (NYSTOP) 2-21 area(s) 3 ity of 100,000 00:00: (three) [place] unit/gram 00 times Medical powder daily. Branch estradioL Yes [id number] Apply 1g Univers (ESTRACE) 2-21 vaginally ity o f 0.01 % (0.1 00:00: at bedtime [place] mg/gram) 00 every Medical vaginal night for Branch cream 2 weeks and then apply 1g vaginally at bedtime 3 times per week ( dn ida) nystatin 2021-0 Yes [id number] Apply to Un linda (NYSTOP) 2-21 area(s) 3 ity of 100,000 00:00: (three) [place] unit/gram 00 times Medical powder daily. Branch estradioL Yes [id number] Apply 1g Univers (ESTRACE) 2-21 vaginally ity o f 0.01 % (0.1 00:00: at bedtime [place] mg/gram) 00 every Medical vaginal night for Branch cream 2 weeks and then apply 1g vaginally at bedtime 3 times per week ( dn/ ida) nystatin 0 Yes [id number] Apply to Un linda (NYSTOP) 2-21 area(s) 3 ity of 100,000 00:00: (three) [place] unit/gram 00 times Medical powder daily. Branch estradioL Yes [id number] Apply 1g Univers (ESTRACE) 2-21 vaginally ity o f 0.01 % (0.1 00:00: at bedtime [place] mg/gram) 00 every Medical vaginal night for Branch cream 2 weeks and then apply 1g vaginally at bedtime 3 times per week ( ida) nystatin 2021-0 Yes [id number] Apply to Un linda (NYSTOP) 2-21 area(s) 3 ity of 100,000 00:00: (three) [place] unit/gram 00 times Medical powder daily. Branch methylnaltr Yes Take by Uni vers exone 2-16 mouth. ity of bromide 14:28: [place] (RELISTOR 49 Medical ORAL) Branch potassium Yes Take by Unive rs (POTASSIMIN 2-16 mouth once it y of ORAL) 14:28: now. [address] spironolact 0 Yes 100mg Take 100 U nivers one 100 mg 2-16 mg by ity of tablet 14:28: mouth. [address] methylnaltr Yes Take by Uni vers exone 2-16 mouth. ity of bromide 14:28: [place] (RELISTOR 49 Medical ORAL) Branch potassium Yes Take by Unive rs (POTASSIMIN 2-16 mouth once it y of ORAL) 14:28: now. [address] spironolact 0 Yes 100mg Take 100 U nivers one 100 mg 2-16 mg by ity of tablet 14:28: mouth. [address] methylnaltr 0 Yes Take by Uni vers exone 2-16 mouth. ity of bromide 14:28: [place] (RELISTOR 49 Medical ORAL) Branch potassium 0 Yes Take by Unive rs (POTASSIMIN 2-16 mouth once it y of ORAL) 14:28: now. [address] spironolact 0 Yes 100mg Take 100 U nivers one 100 mg 2-16 mg by ity of tablet 14:28: mouth. [address] methylnaltr 0 Yes Take by Uni vers exone 2-16 mouth. ity of bromide 14:28: [place] (RELISTOR 49 Medical ORAL) Branch potassium 0 Yes Take by Unive rs (POTASSIMIN 2-16 mouth once it y of ORAL) 14:28: now. [address] spironolact 0 Yes 100mg Take 100 U nivers one 100 mg 2-16 mg by ity of tablet 14:28: mouth. [address] lactulose 0 Yes 20g Q.[id number] Take [address] (Kristalose 2-07 [id number] packet (20 Lukes ) 20 gram 00:00: 3D g total) Medi cj packet 00 by mouth 3 Center (three) times daily START ONCE STOOLS ARE FORMED.. lactulose 2021-0 Yes 20g Q.[id number] Take [address] (Kristalose 2-07 [id number] packet (20 Lukes ) 20 gram 00:00: 3D g total) Medi cj packet 00 by mouth 3 Center (three) times daily START ONCE STOOLS ARE FORMED.. lactulose 2021-0 Yes 20g Q.[id number] Take [address] (Kristalose 2-07 [id number] packet (20 Lukes ) 20 gram 00:00: 3D g total) Medi cj packet 00 by mouth 3 Center (three) times daily START ONCE STOOLS ARE FORMED.. lactulose 2021-0 Yes 20g Q.[id number] Take [address] (Kristalose 2-07 [id number] packet (20 Lukes ) 20 gram 00:00: 3D g total) Medi cj packet 00 by mouth 3 Center (three) times daily START ONCE STOOLS ARE FORMED.. lactulose 2021-0 Yes 20g Q.[id number] Take [address] (Kristalose 2-07 [id number] packet (20 Lukes ) 20 gram 00:00: 3D g total) Medi cj packet 00 by mouth 3 Center (three) times daily START ONCE STOOLS ARE FORMED.. lactulose 2021-0 Yes 20g Q.[id number] Take [address] (Kristalose 2-07 [id number] packet (20 Lukes ) 20 gram 00:00: 3D g total) Medi cj packet 00 by mouth 3 Center (three) times daily START ONCE STOOLS ARE FORMED.. lactulose 0 Yes 20g Q.[id number] Take [address] (Kristalose 2-07 [id number] packet (20 Lukes ) 20 gram 00:00: 3D g total) Medi cj packet 00 by mouth 3 Center (three) times daily START ONCE STOOLS ARE FORMED.. lactulose 0 Yes 20g Q.[id number] Take [address] (Kristalose 2-07 [id number] packet (20 Lukes ) 20 gram 00:00: [...] mouth Medical tablet 56 nightly. Center ubrogepant 2022-0 Yes 100mg Take 100 CH [...] cj 50 MG 56 Center tablet thiamine 2021-0 Yes 1{tbl} QD Take 1 CHI S [...] MG 12:13: mouth Medical tablet 56 nightly. [facility] rifAXIMin 0 Yes 1{tbl} Q.5D Take 1 [...] Lukes tablet 12:13: mouth Medical 56 daily. [facility] topiramate Yes 1{tbl} QD Take [address] (TOPAMAX) 2-05 tablet by Lukes 50 MG 12:13: mouth Medical tablet 56 nightly. [place] ubrogepant Yes 100mg Take 100 CH I [...] 12 (twelve) hours for 3 days. fidaxomicin 2021-2021- No 200mg Take [address] 200 mg Tab 2- 02-08 tablet Lukes 00:00: 23:59 (200 mg Medical 00 :00 total) by Center mouth every 12 (twelve) hours for 3 days. lactulose 2021-2021- No 1{packe Q.[id number] Take [address] (Kristalose 2-04 02-04 t} [id number] packet by Lukes ) 20 gram 15:50: 00:00 3D mouth 3 Medi cj packet 31 :00 (three) Center times daily. lactulose 2021-0 2021- No 1{packe Q.[id number] Take [address] (Kristalose 2-04 02-04 t} [id number] packet by Lukes ) 20 gram 15:50: 00:00 3D mouth 3 Medi cj packet 31 :00 (three) Center times daily. lactulose 2021-0 2021- No 1{packe Q.[id number] Take [address] (Kristalose 2-04 02-04 t} [id number] packet by Lukes ) 20 gram 15:50: [...] es latum 00:00: BID. Medical (CRITIC-AID 00 [place] ) 20-51 % Pste topical paste zinc 2021-[address] [facility] oxide-luana 2-04 TOPICALLY Alejo es latum 00:00: BID. Medical (CRITIC-AID [address] [place] [address] ) 20-51 % Pste topical paste zinc [...] St ine 2-04 02-04 t} packet by [employer] ([employer]) 00:00: 23:59 mouth 2 Med ical 4 gram PwPk 00 :00 (two) Center packet times daily. nystatin 2022- No Q.5D Apply [facility] (MYCOSTATIN 2-04 02-04 topically Susanna kes ) 100,000 00:00: 23:59 2 (two) Medi cj unit/gram 00 :00 times Center powder daily. cholestyram 2022- No 1{packe Q.5D Take [address] ine 2-04 02-04 t} packet by [employer] ([employer]) 00:00: 23:59 mouth 2 Med ical 4 gram PwPk 00 :00 (two) Center packet times daily. nystatin 2022- No Q.5D Apply [facility] (MYCOSTATIN 2-04 02-04 topically Susanna kes ) 100,000 00:00: 23:59 2 (two) Medi cj unit/gram 00 :00 times Center powder daily. cholestyram 2022- No 1{packe Q.5D Take [address] ine 2-04 02-04 t} packet by [employer] ([employer]) 00:00: 23:59 mouth 2 Med ical 4 gram PwPk 00 :00 (two) Center packet times daily. nystatin 2022- No Q.5D Apply [facility] (MYCOSTATIN 2-04 02-04 topically Susanna kes ) 100,000 00:00: 23:59 2 (two) Medi cj unit/gram 00 :00 times Center powder daily. cholestyram 2022- No 1{packe Q.5D Take [address] ine 2-04 02-04 t} packet by [employer] ([employer]) 00:00: 23:59 mouth 2 Med ical 4 gram PwPk 00 :00 (two) Center packet times daily. nystatin 2022- No Q.5D Apply [facility] (MYCOSTATIN 2-04 02-04 topically Susanna kes ) 100,000 00:00: 23:59 2 (two) Medi cj unit/gram 00 :00 times Center powder daily. cholestyram 2022- No 1{packe Q.5D Take [address] ine 2-04 02-04 t} packet by [employer] ([employer]) 00:00: 23:59 mouth 2 Med ical 4 gram PwPk 00 :00 (two) Center packet times daily. nystatin 2022- No Q.5D Apply [facility] (MYCOSTATIN 2-04 02-04 topically Susanna kes ) 100,000 00:00: 23:59 2 (two) Medi cj unit/gram 00 :00 times Center powder daily. cholestyram 2022- No 1{packe Q.5D Take [address] ine 2-04 02-04 t} packet by [employer] ([employer]AN) 00:00: 23:59 mouth 2 Med ical 4 gram PwPk 00 :00 (two) Center packet times daily. nystatin 2022- No Q.5D Apply [facility] (MYCOSTATIN 2-04 02-04 topically Susanna kes ) 100,000 00:00: 23:59 2 (two) Medi cj unit/gram 00 :00 times Center powder daily. cholestyram 2022- No 1{packe Q.5D Take [address] ine 2-04 02-04 t} packet by [employer] (QUESTRAN) 00:00: 23:59 mouth 2 Med ical 4 gram PwPk 00 :00 (two) Center packet times daily. nystatin 2022- No Q.5D Apply [facility] (MYCOSTATIN 2-04 02-04 topically Susanna kes ) 100,000 00:00: 23:59 2 (two) Medi cj unit/gram 00 :00 times Center powder daily. cholestyram 2022- No 1{packe Q.5D Take [address] ine 2-04 02-04 t} packet by [employer] (QUESTRAN) 00:00: 23:59 mouth 2 Med ical [...] for up to 360 days. acetaminoph 2021-0 3- No 650mg Take [address] [...] needed for up to 360 days. lidocaine 2021-0 2022- No 1{patch Q24H Place [address] (LIDODERM) 2-06 } patch onto Susanna kes 5 % patch 00:00: 23:59 the skin Med ical 00 :00 daily for Center 30 days Remove & Discard patch within 12 hours or as directed by . lidocaine 2021-0 2- No 1{patch Q24H Place [address] (LIDODERM) 2-06 } patch onto Susanna kes 5 % patch 00:00: 23:59 the skin Med ical 00 :00 daily for Center 30 days Remove & Discard patch within 12 hours or as directed by . lidocaine 2-0 2022- No 1{patch Q24H Place [address] (LIDODERM) 2 03-06 } patch onto Susanna kes 5 % patch 00:00: 23:59 the skin Med ical 00 :00 daily for Center 30 days Remove & Discard patch within 12 hours or as directed by . fidaxomicin 2-0 2022- No 200mg Take 1 [...] St ine 2-04 02-04 t} packet by [employer] (SabesimRAN) 00:00: 00:00 mouth 2 Med ical 4 [...] Place [address] (LIDODERM) 09-15 02-04 } patch onto Susanna kes 5 % patch 00:00: 00:00 the skin Med ical 00 :00 daily for Center 30 days Remove & Discard patch within 12 hours or as directed by . cholestyram 2-0 2- No 1{packe Q.5D Take [address] ine 2-04 02-04 t} packet by LuStupeflix (SabesimRAN) 00:00: 00:00 mouth 2 Med ical 4 [...] MG 16:27: mouth Medical tablet 53 nightly. [place] eszopiclone Yes 2mg Take [address] (LUNESTA) 2 1-24 by mouth Luke s MG tablet 16:27: every Medical 52 night as Center needed. gabapentin Yes 1{capsu Q.5D Take [address] (NEURONTIN) 1-24 le} capsule by Susanna kes 300 MG 16:27: mouth 2 Medical capsule 52 (two) Center times daily. lactulose Yes 1{packe Q.[id number] Take [address] [facility] (Kristalose 1-24 t} [id number] packet by Gurpreet ) 20 gram 16:27: [...] Goal 2-4 bowel movements per day QUEtiapine No 50mg QD Take 50 mg Methodi [...] clonAZEPAM 0 Yes .5mg Q24H Take 0.5 Met hodi (KlonoPIN) 1-[address] 0.5 MG 18:28: mouth [facility]osp[facility] tablet 48 daily as l needed for anxiety. Per [place] Prescript[facility] on Drug Monitoring Program records: Last [...] mouth st mg tablet 18:28: nightly. Hosp pgae 48 Per [facility] Prescripti on Drug Monitoring Program records: Last filled: 08/09/21 Quantity: 30 Days Supply: 30 traMADoL 0 Yes 50mg Q4H Take 50 mg Met hodi (ULTRAM) 50 1-[address] mg tablet 18:28: every 4 Hospi ta 48 (four) l hours as needed for moderate pain. Per [place] Prescript[facility] on Drug Monitoring [facility] records: Last filled: 01/16/21 Quantity: 30 Days Supply: 5 zinc 2021- No 1{capsu QD Take 1 Methodi sulfate 11 0211 le} capsule by st (ZINCATE) 00:00: [...] a tablet 47 :00 l SUMAtriptan Yes [id number] 50mg Q24H Take 1 [facility] (Imitrex) -10 [...] l nightly for 30 days. pantoprazol No [id number] 40mg QD Take 1 Methodi e 08-21 [...] furosemide No 20mg QD Take 1 Meth eratso (LASIX) 20 08-13 tablet (20 st mg [...] day for 30 days. gabapentin No 300mg Q.[id number] Take 1 [facility] (NEURONTIN) 04-[id number] 300 mg 00:00: 00:00 3D (300 mg Hospita capsule 00 :00 total) by l mouth 3 (three) times a day for 30 days. Ketorolac Ketorolac 2019-0 No 30mg Com mon (Toradol) (Toradol) 8-24 Spiri t per 15mg per 15mg 00:00: - [facility] 00 [facility] Ketorolac Ketorolac 2020-0 No 30mg Com mon (Toradol) (Toradol) 8-24 Spiri t per 15mg per 15mg 00:00: - [facility] 00 [facility] Ketorolac Ketorolac 2020-0 No 30mg Com mon (Toradol) (Toradol) 8-24 Spiri t per 15mg per 15mg 00:00: - [facility] Ketorolac Ketorolac 2020-0 No 30mg Com mon (Toradol) (Toradol) 8-24 Spiri t per 15mg per 15mg 00:00: - [facility] 00 [facility] Ketorolac Ketorolac 2020-0 No 30mg Com mon (Toradol) (Toradol) 8-24 Spiri t per 15mg per 15mg 00:00: - [facility] 00 [facility] Vitamin B12 Vitamin B12 2020-0 No 1000ug Common (Cyanocobal (Cyanocobal 7-24 S pirit jameson) jameson) 00:00: - [facility] Vitamin B12 Vitamin B12 2020-0 No 1000ug Common (Cyanocobal (Cyanocobal 7-24 S pirit jameson) jameson) 00:00: - [facility] Vitamin B12 Vitamin B12 2020-0 No 1000ug Common (Cyanocobal (Cyanocobal 7-24 S pirit jameson) jameson) 00:00: - [facility] Vitamin B12 Vitamin B12 2020-0 No 1000ug Common (Cyanocobal (Cyanocobal 7-24 S pirit jameson) jameson) 00:00: - [facility] Vitamin B12 Vitamin B12 2020-0 No 1000ug Common (Cyanocobal (Cyanocobal 7-24 S pirit jameson) jameson) 00:00: - [facility] pantoprazol 2019-0 2021- No [id number] 40mg QD Take 1 Methodi e 6-15 08-19 tablet (40 st (PROTONIX) 00:00: 00:00 mg total) H ospita 40 MG EC 00 :00 by mouth l tablet every morning. SUMAtriptan 2019-0 2021- No [id number] 50mg Q24H Take 1 [facility] (Imitrex) 15 [...] No BD Disp Needle 25G Needle 25G 209 Needle 25G X 1" X 1" 00:00: X 1" 00 Vitamin B12 Vitamin B12 2019-1 No 1000ug Common (Cyanocobal (Cyanocobal 2-05 S pirit jameson) jameson) 00:00: - [facility] 00 [facility] Vitamin B12 Vitamin B12 2019-1 No 1000ug Common (Cyanocobal (Cyanocobal 2-05 S pirit jameson) jameson) 00:00: - [facility]I 00 [facility] Vitamin B12 Vitamin B12 2019-1 No 1000ug Common (Cyanocobal (Cyanocobal 2-05 S pirit jameson) jameson) 00:00: - [facility] 00 [facility] Vitamin B12 Vitamin B12 2019-1 No 1000ug Common (Cyanocobal (Cyanocobal 2-05 S pirit jameson) jameson) 00:00: - [facility] 00 [facility] Vitamin B12 Vitamin B12 2019-1 No 1000ug Common (Cyanocobal (Cyanocobal 2-05 S pirit jameson) jameson) 00:00: - [facility] 00 [facility] Vitamin B12 Vitamin B12 2019-0 No 1000ug Common (Cyanocobal (Cyanocobal 8-29 S pirit jameson) jameson) 00:00: - [facility] 00 [facility] Vitamin B12 Vitamin B12 2019-0 No 1000ug Common (Cyanocobal (Cyanocobal 8-29 S pirit jameson) jameson) 00:00: - [facility] 00 [facility] Vitamin B12 Vitamin B12 2019-0 No 1000ug Common (Cyanocobal (Cyanocobal 8-29 S pirit jameson) jameson) 00:00: - [facility]I 00 [facility] Vitamin B12 Vitamin B12 2019-0 No 1000ug Common (Cyanocobal (Cyanocobal 8-29 S pirit jameson) jameson) 00:00: - [facility]I 00 [facility] Vitamin B12 Vitamin B12 2019-0 No 1000ug Common (Cyanocobal (Cyanocobal 8-29 S pirit jameson) jameson) 00:00: - [facility] 00 [facility] eszopiclone 2019-0 Yes 2mg Take 2 mg U nivers 2 mg tablet 7-29 by mouth ity of 16:42: at [place] 13 bedtime. Medical Branch GABAPENTIN 2019-0 Yes Take by [facility] ers ORAL 7-29 mouth. ity of 16:42: [place] [address] Medical Branch traMADOL 50 2019-0 Yes 50mg Take 50 mg Univers mg tablet 7-29 by mouth ity of 16:42: as needed [place] [address] for Pain Medical (scale Branch 7-10). eszopiclone 2019-0 Yes 2mg Take 2 mg U nivers 2 mg tablet 7-29 by mouth ity of 16:42: at [place] [address] bedtime. Medical Branch GABAPENTIN 2019-0 Yes Take by [facility] ers ORAL 7-29 mouth. ity of 16:42: [place] [address] Medical Branch traMADOL 50 2019-0 Yes 50mg Take 50 mg Univers mg tablet 7-29 by mouth ity of 16:42: as needed [place] [address] for Pain Medical (scale Branch 7-10). eszopiclone 2019-0 Yes 2mg Take 2 mg U nivers 2 mg tablet 7-29 by mouth ity of 16:42: at [place] [address] bedtime. Medical Branch GABAPENTIN 2019-0 Yes Take by [facility] ers ORAL 7-29 mouth. ity of 16:42: [place] [address] Medical Branch traMADOL 50 [id number] Yes 50mg Take 50 mg Univers mg tablet 7-29 by mouth ity of 16:42: as needed [place] [address] for Pain Medical (scale Branch 7-10). eszopiclone 2019-0 Yes 2mg Take 2 mg U nivers 2 mg tablet 7-29 by mouth ity of 16:42: at [place] [address] bedtime. Medical Branch GABAPENTIN 2019-0 Yes Take by [facility] ers ORAL 7-29 mouth. ity of 16:42: [place] [address] Medical Branch traMADOL 50 2019-0 Yes 50mg Take 50 mg Univers mg tablet 7-29 by mouth ity of 16:42: as needed [place] [address] for Pain Medical (scale Branch 7-10). lactulose 2019-0 Yes [id number] 20g Take 1 Un linda (KRISTALOSE 7-29 Packet by ity of ) 20 gram 00:00: mouth 3 [place] packet 00 (three) Medical times Branch daily. lactulose 2019-0 Yes [id number] 20g Take 1 Un linda (KRISTALOSE 7-29 Packet by ity of ) 20 gram 00:00: mouth 3 [place] packet 00 (three) Medical times Branch daily. lactulose 2019-0 Yes [id number] 20g Take 1 Un linda (KRISTALOSE 7-29 Packet by ity of ) 20 gram 00:00: mouth 3 [place] packet 00 (three) Medical times Branch daily. lactulose 2019-0 Yes [id number] 20g Take 1 Un linda (KRISTALOSE 7-29 Packet by ity of ) 20 gram 00:00: mouth 3 [place] packet 00 (three) Medical times Branch daily. ondansetron 2019- Yes [id number] 8mg Take 2 Univers 4 mg tablet 4-01 tablets by it y of 00:00: mouth [place] 00 every 8 Medical (eight) Branch hours as needed for Nausea and Vomiting (N/V). ondansetron 2018-0 Yes [id number] 8mg Take 2 Univers 4 mg tablet 4-01 tablets by it y of 00:00: mouth [place] 00 every 8 Medical (eight) Branch hours as needed for Nausea and Vomiting (N/V). ondansetron 2018- Yes [id number] 8mg Take 2 Univers 4 mg tablet 4-01 tablets by it y of 00:00: mouth [place] 00 every 8 Medical (eight) Branch hours as needed for Nausea and Vomiting (N/V). ondansetron 2018-0 Yes [id number] 8mg Take 2 Univers 4 mg tablet 4-01 tablets by it y of 00:00: mouth [place] 00 every 8 Medical (eight) Branch hours as needed for Nausea and Vomiting (N/V). butalbital- Yes [id number] 1{capsu Take 1 Univers aspirin-caf 3-25 le} capsule by it y of feine 00:00: mouth [place] 50-325-40 00 every 4 Medical mg per (four) Branch capsule hours as needed for Pain (headache unrelieved wtih other medication s). butalbital- Yes [id number] 1{capsu Take 1 Univers aspirin-caf 3-25 le} capsule by it y of feine 00:00: mouth [place] 50-325-40 00 every 4 Medical mg per (four) Branch capsule hours as needed for Pain (headache unrelieved wtih other medication s). butalbital- Yes [id number] 1{capsu Take 1 Univers aspirin-caf 3-25 le} capsule by it y of feine 00:00: mouth [place] 50-325-40 00 every 4 Medical mg per (four) Branch capsule hours as needed for Pain (headache unrelieved wtih other medication s). butalbital- Yes [id number] 1{capsu Take 1 Univers aspirin-caf 3-25 le} [...] MCG/ACT MCG/ACT MCG/ACT XIFAXAN 550 2016-08 Yes [id number] TAKE ONE Univers mg tablet 1-27 TABLET BY ity o f 00:00: MOUTH 2 00 TIMES A Medical DAY Branch PANTOPRAZOL 2016-08 Yes [id number] TAKE ONE Univers E 40 mg EC 1-27 TABLET BY ity of tablet 00:00: MOUTH [place] 00 EVERY DAY Medical Branch XIFAXAN 550 2016-08 Yes [id number] TAKE ONE Univers mg tablet 1-27 TABLET BY ity o f 00:00: MOUTH 2 TIMES A Medical DAY Branch PANTOPRAZOL 2016-08 Yes [id number] TAKE ONE Univers E 40 mg EC 1-27 TABLET BY ity of tablet 00:00: MOUTH [place] 00 EVERY DAY Medical Branch XIFAXAN 550 2016-08 Yes [id number] TAKE ONE Univers mg tablet 1-27 TABLET BY ity o f 00:00: MOUTH 2 [place] 00 TIMES A Medical DAY Branch PANTOPRAZOL 2016-08 Yes [id number] TAKE ONE Univers E 40 mg EC 1-27 TABLET BY ity of tablet 00:00: MOUTH [place] 00 EVERY DAY Medical Branch XIFAXAN 550 2016-08 Yes [id number] TAKE ONE Univers mg tablet 1-27 TABLET BY ity o f 00:00: MOUTH 2 [place] 00 TIMES A Medical DAY Branch PANTOPRAZOL 2016-08 Yes [id number] TAKE ONE Univers E 40 mg EC [...] (scale 4-6) or Pain (scale 7-10). cyclobenzap [id number] Yes 10mg Take 1 Univ ers rine [...] 0-10 by mouth. ity of tablet 00:00: [place] [address] Medical Branch furosemide 2015-08 Yes 40mg Take 40 mg U nivers 40 mg 0-10 by mouth. ity of tablet 00:00: [place] [address] Medical Branch furosemide 2015-08 Yes 40mg Take 40 mg U nivers 40 mg 0-10 by mouth. ity of tablet 00:00: [place] [address] Medical Branch furosemide 2015-08 Yes 40mg Take 40 mg U nivers 40 mg 0-10 by mouth. ity of tablet 00:00: [address] Branch Allopurinol Allopurinol Yes [facility] 2 tablets [facility] Zofran ODT Zofran ODT No 1{table TID [...] ML X 5/8" 1 ML 25G X 58" 1 ML Allopurinol Allopurinol No 1{table QD [...] Universit y of Vaccine 00:00:00 [facility] Influenza Virus 2021-04-12 Completed Universit y of Vaccine 00:00:00 [facility] Influenza Virus 2021-04-12 Completed Universit y of Vaccine 00:00:00 [facility] Influenza Virus 2021-04-12 Completed Universit y of Vaccine 00:00:00 [facility] SARS-COV-2 COVID-19 2020-12-14 Completed Unive rsity of YANIRA/J&J VACCINE 00:00:00 [facility] SARS-COV-2 COVID-19 2020-12-14 Completed Unive rsity of YANIRA/J&J VACCINE 00:00:00 [facility] SARS-COV-2 COVID-19 2020-12-14 Completed Unive rsity of YANIRA/J&J VACCINE 00:00:00 [facility] SARS-COV-2 COVID-19 2020-12-14 Completed Unive rsity of YANIRA/J&J VACCINE 00:00:00 [facility] Ketorolac (Toradol) Ketorolac (Toradol) 2020-04-04 Completed [facility] - per 15mg per 15mg 11:19:00 [facility] Ketorolac (Toradol) Ketorolac (Toradol) 2020-04-04 Completed [facility] - per 15mg per 15mg 11:19:00 [facility] Ketorolac (Toradol) Ketorolac (Toradol) 2020-04-04 Completed [facility] - per 15mg per 15mg 11:19:00 [facility] Ketorolac (Toradol) Ketorolac (Toradol) 2020-04-04 Completed [facility] - per 15mg per 15mg 11:19:00 [facility] Ketorolac (Toradol) Ketorolac (Toradol) 2020-04-04 Completed [facility] - per 15mg per 15mg 11:19:00 [facility] Ketorolac (Toradol) Ketorolac (Toradol) 2020-04-04 Completed [facility] - per 15mg per 15mg 11:19:00 [facility] Ketorolac (Toradol) Ketorolac (Toradol) 2020-04-04 Completed [facility] - per 15mg per 15mg 11:19:00 [facility] Ketorolac (Toradol) Ketorolac (Toradol) 2020-04-04 Completed [facility] - per 15mg per 15mg 11:19:00 [facility] Vitamin B12 Vitamin B12 2019-07-16 Completed [facility] - (Cyanocobalamin) (Cyanocobalamin) 13:54:00 [facility] Vitamin B12 Vitamin B12 2019-07-16 Completed Common Spiri t - (Cyanocobalamin) (Cyanocobalamin) 13:54:00 [facility] Vitamin B12 Vitamin B12 2019-07-16 Completed Common Spiri t - (Cyanocobalamin) (Cyanocobalamin) 13:54:00 [facility] Vitamin B12 Vitamin B12 2019-07-16 Completed Common Spiri t - (Cyanocobalamin) (Cyanocobalamin) 13:54:00 [facility] Vitamin B12 Vitamin B12 2019-07-16 Completed Common Spiri t - (Cyanocobalamin) (Cyanocobalamin) 13:54:00 [facility] Vitamin B12 Vitamin B12 2019-07-16 Completed Common Spiri t - (Cyanocobalamin) (Cyanocobalamin) 13:54:00 I [facility] Vitamin B12 Vitamin B12 2019-07-16 Completed Common Spiri t - (Cyanocobalamin) (Cyanocobalamin) 13:54:00 [facility] Vitamin B12 Vitamin B12 2019-07-16 Completed Common Spiri t - (Cyanocobalamin) (Cyanocobalamin) 13:54:00 [facility] Vitamin B12 Vitamin B12 2019-04-09 Completed Common Spiri t - (Cyanocobalamin) (Cyanocobalamin) 14:26:00 [facility] Vitamin B12 Vitamin B12 2019-04-09 Completed Common Spiri t - (Cyanocobalamin) (Cyanocobalamin) 14:26:00 [facility] Vitamin B12 Vitamin B12 2019-04-09 Completed Common Spiri t - (Cyanocobalamin) (Cyanocobalamin) 14:26:00 [facility] Vitamin B12 Vitamin B12 2019-04-09 Completed [facility] Spiri t - (Cyanocobalamin) (Cyanocobalamin) 14:26:00 [facility] Vitamin B12 Vitamin B12 2019-04-09 Completed Common Spiri t - (Cyanocobalamin) (Cyanocobalamin) 14:26:00 [facility] Vitamin B12 Vitamin B12 2019-04-09 Completed Common Spiri t - (Cyanocobalamin) (Cyanocobalamin) 14:26:00 [facility] Vitamin B12 Vitamin B12 2019-04-09 Completed [facility] Spiri t - (Cyanocobalamin) (Cyanocobalamin) 14:26:00 [facility] Vitamin B12 Vitamin B12 2019-04-09 Completed Common Spiri t - (Cyanocobalamin) (Cyanocobalamin) 14:26:00 [facility] Influenza (IM) 2018-04-21 Completed [facility] Preservative Free 00:[facility]:00 [facility]ospita l Influenza Virus 2018-04-21 Completed Universit y of Vaccine (3+ yrs) 00:00:00 [facility] dical Branch Influenza Virus 2018-04-21 Completed Universit y of Vaccine (3+ yrs) 00:00:00 [facility] Influenza Virus 2018-04-21 Completed Universit y of Vaccine (3+ yrs) 00:00:00 [facility] Branch Influenza Virus 2018-04-21 Completed Universit y of Vaccine (3+ yrs) 00:00:00 [facility] Branch Pneumococcal 2016-05-08 Completed [facility] Conjugate 13-Valent 00:00:00 Hospi mateo FLUCELVAX QUAD PF 2016-05-[address] 00:00:00 Hospital Pneumococcal 13 2016-05-08 Completed Universit y of Conjugate, PCV13 00:00:00 [facility] dical (Prevnar 13) Branch Pneumococcal 13 2016-05-08 Completed Universit y of Conjugate, PCV13 00:00:00 [facility] dical (Prevnar 13) Branch Pneumococcal 13 2016-05-08 Completed Universit y of Conjugate, PCV13 00:00:00 [facility] dical (Prevnar 13) Branch Pneumococcal 13 2016-05-08 Completed Universit y of Conjugate, PCV13 00:00:00 [facility] (Prevnar 13) [place] Vital Signs Vital Name Observation Time Observation Value Comments Source Systolic blood 2022-11-07 17:39:00 111 mm[Hg] Univer sity of pressure [facility] Diastolic blood 2022-11-07 17:39:00 64 [facility]Hg[facility] 2022-11-07 17:39:00 79 /min [facility] Body temperature 2022-11-07 17:39:00 36.5 Georgette [facility] Respiratory rate 2022-11-07 17:39:00 18 /min [facility] Body weight 2022-11-07 17:39:00 80.287 kg [facility] BMI 2022-11-07 17:39:00 35.75 kg/m2 [facility] Oxygen saturation in 2022-11-07 17:39:00 99 /min [facility] Arterial blood by [facility] Pulse oximetry Branch Systolic blood 2021-11-16 18:59:00 111 mm[Hg] Univer sity of pressure [facility] Diastolic blood 2021-11-16 18:59:00 74 mm[Hg] Unive rsity of pressure [facility] Heart rate 2021-11-16 18:59:00 75 /min Universi ty [facility] Body temperature 2021-11-16 18:59:00 36.67 Georgette Univ ersity of [facility] Body height 2021-11-16 18:59:00 149.9 cm Universi ty [facility] Body weight 2021-11-16 18:59:00 80.559 kg Universi ty [facility] BMI 2021-11-16 18:59:00 35.87 kg/m2 Universi ty [facility] height 2021-10-16 15:30:00 59 [in_i] Common [facility] weight 2021-10-16 15:30:00 176.5 [lb_av] [facility] temperature 2021-10-16 15:30:00 97.2 [degF] [facility] bmi 2021-10-16 15:30:00 35.64 kg/m2 [facility] oximetry 2021-10-16 15:30:00 100 % [facility] respiratory rate 2021-10-16 15:30:00 18 /min [facility] blood pressure 2021-10-16 15:30:00 123 mm[Hg] [facility] - systolic [facility] blood pressure 2021-10-16 15:30:00 65 mm[Hg] Common [facility] - diastolic [facility] height 2021-09-25 10:40:00 59 [in_i] Common [facility] weight 2021-09-25 10:40:00 190 [lb_av] [facility] temperature 2021-09-25 10:40:00 97.4 [degF] [facility] bmi 2021-09-25 10:40:00 38.37 kg/m2 [facility] blood pressure 2021-09-25 10:40:00 125 mm[Hg] [facility] - [facility] blood pressure 2021-09-25 10:40:00 76 mm[Hg] [facility] - diastolic [facility] HEIGHT 2021-09-02 15:44:00 149.9 cm WEIGHT 2021-09-02 15:44:00 87.091 kg HEIGHT 2021-09-02 15:44:00 149.9 cm WEIGHT 2021-09-02 15:44:00 87.091 kg height 2021-04-26 10:30:00 59 [in_i] Common S pirit - [facility] weight 2021-04-26 10:30:00 215 [lb_av] [facility] temperature 2021-04-26 10:30:00 98 [degF] [facility] bmi 2021-04-26 10:30:00 43.42 kg/m2 [facility] blood pressure 2021-04-26 10:30:00 121 mm[Hg] [facility] - systolic [facility] blood pressure 2021-04-26 10:30:00 70 mm[Hg] [facility] - diastolic [facility] height 2021-04-26 14:20:00 59 [in_i] Common S pirit [facility] weight 2021-04-26 14:20:00 215 [lb_av] [facility] temperature 2021-04-26 14:20:00 98 [degF] Common S pirit [facility] bmi 2021-04-26 14:20:00 43.42 kg/m2 Common S pirit [facility] oximetry 2021-04-26 14:20:00 100 % Common S pirit [facility] blood pressure 2021-04-26 14:20:00 121 mm[Hg] [facility] - systolic [facility] blood pressure 2021-04-26 14:20:00 70 mm[Hg] Common [facility] - diastolic [facility] Systolic blood 2021-09-16 08:00:00 98 mm[Hg] [facility] Diastolic blood 2021-09-16 08:00:00 49 mm[Hg] [facility] Heart rate 2021-09-16 08:00:00 89 /min [facility] Body temperature 2021-09-16 08:00:00 36.17 Georgette [facility] Respiratory rate 2021-09-16 08:00:00 18 /min [facility] Oxygen saturation in 2021-09-16 08:00:00 99 /min [facility] Arterial blood by Medical Ce nter Pulse oximetry Systolic blood 2021-09-11 19:42:00 125 mm[Hg] [facility] Diastolic blood 2021-09-11 19:42:00 60 mm[Hg] [facility] Heart rate 2021-09-11 19:42:00 98 /min [facility] Body temperature 2021-09-11 19:42:00 35.67 Georgette [facility] Respiratory rate 2021-09-11 19:42:00 18 /min [facility] Oxygen saturation in 2021-09-11 19:42:00 100 /min [facility] Arterial blood by Medical Ce nter Pulse oximetry Body height 2021-09-02 15:44:00 149.9 cm [facility] Body weight 2021-09-02 15:44:00 87.091 kg [facility] BMI 2021-09-02 15:44:00 38.78 kg/m2 [facility] Systolic blood 2021-08-31 06:30:00 119 mm[Hg] [facility] [place] pressure Diastolic blood 2021-08-31 06:30:00 68 mm[Hg] [facility] [place] pressure Heart rate 2021-08-31 06:30:00 70 /min [facility] Respiratory rate 2021-08-31 06:30:00 16 /min [facility] Oxygen saturation in 2021-08-31 06:30:00 97 /min [facility] Arterial blood by Pulse oximetry Body temperature 2021-08-31 04:04:09 36.83 Georgette [facility] Body height 2021-08-31 04:04:00 149.9 cm [facility] Body weight 2021-08-31 04:04:00 89.359 kg [facility] BMI 2021-08-31 04:04:00 39.79 kg/m2 [facility] Procedures Procedure Date / Time Performing Clinician Source Performed NOTICE OF PRIVACY 2022-11-07 17:30:44 Doctor Unassigned, No [facility] PRACTICES Name Medical Branch CONSENT/REFUSAL FOR 2022-11-07 17:30:27 Doctor Unassigned, No [facility] DIAGNOSIS AND TREATMENT Name Medical [place] EXTERNAL PROVIDER RECORDS 2022-02-08 05:01:00 Doctor Unassigned, No [facility] Branch HEPATITIS A ANTIBODY, IGM 2022-01-23 15:13:00 [facility] HEPATITIS B SURFACE 2022-01-23 15:13:00 [facility] HEPATITIS B CORE ANTIBODY, 2022-01-23 15:13:00 [facility] HEPATITIS C ANTIBODY 2022-01-23 15:13:00 [facility] HEPATIC FUNCTION PANEL 2021-09-15 05:20:00 [facility] AUTO 2021-09-15 05:20:00 Niya Cartagena [facility] PROTHROMBIN TIME/INR 2021-09-15 05:20:00 Niya Cartagena [facility] BASIC METABOLIC PANEL 2021-09-15 05:20:00 Niya Cartagena [facility] CBC W/PLT COUNT & AUTO 2021-09-15 05:20:00 Niya Cartagena [facility] CT ABDOMEN/PELVIS WITHOUT 2021-09-15 00:49:00 Kendy Hall [facility] IV CONTRAST [facility] CBC W/PLT COUNT & AUTO 2021-09-14 08:36:00 Niya Cartagena [facility] CBC W/PLT COUNT & AUTO 2021-09-14 08:36:00 Henry Cartagenalie [facility] HEPATIC FUNCTION PANEL 2021-09-14 07:35:00 Niya Cratagenaison [facility] PROTHROMBIN TIME/INR 2021-09-14 07:35:[address] [facility] BASIC METABOLIC PANEL 2021-09-14 07:35:00 KaimNiya C [facility] HEPATIC FUNCTION PANEL 2021-09-13 07:14:00 [facility] W/PLT COUNT & AUTO 2021-09-13 07:14:00 KaimNiya [facility] PROTHROMBIN TIME/INR 2021-09-13 07:14:[address] [facility] BASIC METABOLIC PANEL 2021-09-13 07:14:00 KaimNiya C [facility] CBC W/PLT COUNT & AUTO 2021-09-13 07:14:00 [facility] [facility] HE[facility] FUNCTION PANEL 2021-09-12 04:23:00 KaimHenryNiyaraquel White [facility] CBC W/PLT COUNT & AUTO 2021-09-12 04:23:00 KaimNiya [facility] PROTHROMBIN TIME/INR 2021-09-12 04:23:00 KaimNiya [facility] BASIC METABOLIC PANEL 2021-09-12 04:23:00 KaimNiya C [facility] MAGNESIUM 2021-09-12 04:23:00 Selma Lu [facility] VITAMIN B12 2021-09-12 04:23:00 [facility] VITAMIN D, 25-HYDROXY 2021-09-12 04:23:00 Mirna [facility] C-REACTIVE PROTEIN 2021-09-12 04:23:00 Bradley [facility] CBC W/PLT COUNT & AUTO 2021-09-12 04:23:00 KaimHenryNiya [facility] HEPATIC FUNCTION PANEL 2021-09-11 05:33:00 Kajag Niyaraquel White [facility] CBC W/PLT COUNT & AUTO 2021-09-11 05:33:00 Kajag Niyaraquel White [facility] PROTHROMBIN TIME/INR 2021-09-11 05:33:00 Lizzjag Niyaraquel White [facility] BASIC METABOLIC PANEL 2021-09-11 05:33:00 Lizzjag Niyalilian Torrezison Zoe [facility] MAGNESIUM 2021-09-11 05:33:00 [facility] & AUTO 2021-09-11 05:33:00 [facility] 2021-09-10 06:52:00 Lizzjag Niya [facility] CBC W/PLT COUNT & AUTO 2021-09-10 06:52:00 [facility] PROT[facility]/INR 2021-09-10 06:52:00 Kajag Niyaraquel White [facility] BASIC METABOLIC PANEL 2021-09-10 06:52:00 Lizzjag Niyalilian Enriquez [facility] MAGNESIUM 2021-09-10 06:52:00 Aly [facility] CBC W/PLT COUNT & AUTO 2021-09-10 06:52:00 Lizzjag Niyaraquel White [facility] HEPATIC FUNCTION PANEL 2021-09-09 05:51:00 Lizzjag Niya [facility] CBC W/PLT COUNT & AUTO 2021-09-09 05:51:00 Lizzjag Niya [facility] PROTHROMBIN TIME/INR 2021-09-09 05:51:00 Lizzjag Niyaraquel White [facility] BASIC METABOLIC PANEL 2021-09-09 05:51:00 Mitzi Niya Cindy C [facility] CBC W/PLT COUNT & AUTO 2021-09-09 05:51:00 Mitzi Niya [facility] (CELLAVISION MANUAL DIFF) 2021-09-09 05:51:00 Niya Cart[facility]a [facility] AMMONIA 2021-09-08 10:54:00 Aly Selma Joana [facility] PHOSPHORUS 2021-09-08 05:14:00 Isabella [facility] HEPATIC FUNCTION PANEL 2021-09-08 05:14:00 KaimNiya [facility] CBC W/PLT COUNT & AUTO 2021-09-08 05:14:00 KaimNiya [facility] PROTHROMBIN TIME/INR 2021-09-08 05:14:00 Niya Cartagena [facility] BASIC METABOLIC PANEL 2021-09-08 05:14:00 Niya Cartagena [facility] CBC W/PLT COUNT & AUTO 2021-09-08 05:14:00 Niya Cartagena [facility] (CELLAVISION MANUAL DIFF) 2021-09-08 05:14:00 Niya Cartagena [facility] PHOSPHORUS 2021-09-07 05:37:00 Isabella, [facility] HEPATIC FUNCTION PANEL 2021-09-07 05:37:00 LizzimNiya [facility] CBC W/PLT COUNT & AUTO 2021-09-07 05:37:00 Niya Cartagena [facility] PROTHROMBIN TIME/INR 2021-09-07 05:37:00 LizzimNiya [facility] BASIC METABOLIC PANEL 2021-09-07 05:37:00 KaimNiya C [facility] CBC W/PLT COUNT & AUTO 2021-09-07 05:37:00 [facility] ([facility]LL[facility]UAL DIFF) 2021-09-07 05:37:00 KaimNiya [facility] PROTHROMBIN TIME/INR 2021-09-06 06:37:00 LizzNiya rmison CH I [facility] BASIC METABOLIC PANEL 2021-09-06 06:37:00 Isabella, Giannanalini CH I [facility] PHOSPHORUS 2021-09-06 06:37:00 Isabella, Giannanalini [facility] PROTHROMBIN TIME/INR 2021-09-05 14:31:00 LizzNiya rmison CH I [facility] BASIC METABOLIC PANEL 2021-09-05 14:31:00 Isabella, Mrinalini CH I [facility] PHOSPHORUS 2021-09-05 14:31:00 Isabella, Giannanalini [facility] CBC W/PLT COUNT & AUTO 2021-09-05 14:31:00 Gianna Masonnalini C [facility] HEPATIC FUNCTION PANEL 2021-09-05 14:31:00 Gianna Masonnalini C [facility] CBC W/PLT COUNT & AUTO 2021-09-05 14:31:00 Gianna Masonnalini C [facility] (CELLAVISION MANUAL DIFF) 2021-09-05 14:31:00 Isabella, Mrinalin [facility] C. DIFFICILE GDH TOXIN 2021-09-04 11:52:00 Jaqueline Vitale [facility] CT ABDOMEN/PELVIS WITH IV 2021-09-04 09:03:00 Mirian Goodman [facility] CONTRAST [facility] CT CHEST WITH IV CONTRAST 2021-09-04 09:03:00 Gianna Masonnalin i [facility] CBC W/PLT COUNT & AUTO 2021-09-04 04:39:00 Nia Lawrence [facility] COMPREHENSIVE METABOLIC 2021-09-04 04:39:[address] [facility] MAGNESIUM 2021-09-04 04:39:00 Nia Lawrence [facility] PHOSPHORUS 2021-09-04 04:39:00 Nia Lawrence [facility] CBC W/PLT COUNT & AUTO 2021-09-04 04:39:00 Nia Lawrence [facility] (CELLAVISION MANUAL DIFF) 2021-09-04 04:39:00 Nia Lawrence sa [facility] HEPATITIS A ANTIBODY, IGG 2021-09-03 12:02:00 Juve Masonin i [facility] HEPATITIS B CORE ANTIBODY, 2021-09-03 12:02:00 Juve Masoni ni [facility] TOTAL [facility] HEPATITIS B SURFACE 2021-09-03 12:02:00 Juve Masonini [facility] ANTIBODY [facility] HEPATITIS B SURFACE 2021-09-03 12:02:00 Zara Mason [facility] ANTIGEN [facility] HEPATITIS C ANTIBODY 2021-09-03 12:02:00 Zara Mason [facility] CBC W/PLT COUNT & AUTO 2021-09-03 12:01:00 Nia Lawrence [facility] COMPREHENSIVE METABOLIC 2021-09-03 12:01:[address] [facility] MAGNESIUM 2021-09-03 12:01:00 Nia Lawrence [facility] PHOSPHORUS 2021-09-03 12:01:00 Nia Lawrence [facility] PROTHROMBIN TIME/INR 2021-09-03 12:01:00 Jr White [facility] Depamao [facility] CBC W/PLT COUNT & AUTO 2021-09-03 12:01:00 Nia Lawrence [facility] (CELLAVISION MANUAL DIFF) 2021-09-03 12:01:00 Nia Lawrence sa [facility] BLOOD CULTURE 2021-09-03 11:59:00 Nia Lawrence [facility] OVA AND PARASITE 2021-09-02 09:44:00 Troy Awad [facility] GI PATHOGEN PROFILE BY PCR 2021-09-02 09:44:00 Troy Awad [facility] BLOOD CULTURE 2021-09-02 06:03:00 Nia Lawrence [facility] CBC W/PLT COUNT & AUTO 2021-09-02 06:03:00 Nia Lawrence [facility] COMPREHENSIVE METABOLIC 2021-09-02 06:03:[address] [facility] MAGNESIUM 2021-09-02 06:03:00 Nia Lawrence [facility] PHOSPHORUS 2021-09-02 06:03:00 Nia Lawrence [facility] C-REACTIVE PROTEIN 2021-09-02 06:03:00 Nia Lawrence [facility] CBC W/PLT COUNT & AUTO 2021-09-02 06:03:00 Nia Lawrence [facility] (CELLAVISION MANUAL DIFF) 2021-09-02 06:03:00 Nia Lawrence sa [facility] IRON, TIBC, % SAT. 2021-09-02 06:01:00 Nia Lawrence [facility] (WITHOUT FERRITIN) [facility] VIT[facility] B12 AND FOLATE 2021-09-02 06:01:00 Nia Lawrence [facility] CT BRAIN WITHOUT IV 2021-09-02 02:39:00 Nia Lawrence [facility] CONTRAST [facility] US ABDOMEN LIMITED 2021-09-02 02:09:00 Nia Lawrence [facility] URINE CULTURE 2021-09-02 01:29:00 Nia Lawrence [facility] URINALYSIS W/ REFLEX URINE 2021-09-02 01:29:[address] [facility] XR CHEST 1 VIEW PORTABLE / 2021-09-02 01:02:00 Nia Lawrence [facility] CBC W/PLT COUNT & AUTO 2021-09-01 22:55:00 Nia Lawrencessa [facility] LACTIC ACID, VENOUS 2021-09-01 22:55:00 Nia Lawrence [facility] PT/APTT 2021-09-01 22:55:00 Nia Lawrence [facility] HEPATIC FUNCTION PANEL 2021-09-01 22:55:00 Nia Lawrence [facility] BASIC METABOLIC PANEL 2021-09-01 22:55:00 Nia Lawrence [facility] MAGNESIUM 2021-09-01 22:55:00 Nia Lawrence [facility] PHOSPHORUS 2021-09-01 22:55:00 Nia Lawrence [facility] CBC W/PLT COUNT & AUTO 2021-09-01 22:55:00 Nia Lawrence [facility] (CELLAVISION MANUAL DIFF) 2021-09-01 22:55:00 Nia Lawrence sa [facility] POCT-GLUCOSE METER 2021-09-01 22:36:00 Dawna Anguiano [facility] ABDOMEN PELVIS WO 2021-08-31 05:50:00 [facility] CONTRAST [facility] HC COMPLETE BLD COUNT 2021-08-31 04:21:00 [facility] W/AUTO DIFF [facility] COMPREHENSIVE METABOLIC 2021-08-31 04:21:00 [facility] PANEL [facility] LACTIC ACID, I-STAT 2021-08-31 04:21:00 [facility] ESTIMATED GFR 2021-08-31 04:21:00 [facility] SPIROMETRY, DIFFUSION, 2021-08-25 19:27:26 [facility] L[facility] VOLUMES, MIPS/MEPS XR CHEST 2 VW 2021-08-25 18:00:20 [facility] XR PANOREX 2021-08-25 17:59:56 JoseKell [facility] POC GLUCOSE 2021-08-25 13:51:00 Jennifer Ghosh spital SALEEM-POSEY VIRUS 2021-08-25 11:08:00 [facility] HC COMPLETE BLD COUNT 2021-08-25 11:08:00 [facility]AUTO DIFF COMPREHENSIVE METABOLIC 2021-08-25 11:08:00 Jennifer Ghosh [facility] PANEL PROTHROMBIN TIME WITH INR 2021-08-25 11:08:[address] [facility] ESTIMATED GFR 2021-08-25 11:08:00 Jennifer Ghosh Ho spital POC GLUCOSE 2021-08-25 03:18:00 Jennifer Ghosh spital POC GLUCOSE 2021-08-25 00:22:00 Jennifer Ghosh spital POC GLUCOSE 2021-08-24 19:43:00 Jennifer Ghoshtal CREATININE LEVEL, URINE, 2021-08-24 18:13:00 Jennifer Ghosh [facility] TIMED PROTEIN, URINE, TIMED 2021-08-24 18:13:00 Jennifer Ghosh [facility] CV SELECTIVE CORONARY 2021-08-24 16:44:00 Cabrera Fierro [facility] ANGIOGRAPHY [place] HC COMPLETE BLD COUNT 2021-08-24 11:01:00 [facility] DIFF [facility] BASIC METABOLIC PANEL 2021-08-24 11:01:00 [facility] HEPATIC FUNCTION PANEL 2021-08-24 11:01:00 [facility] [place] MAGNESIUM LEVEL 2021-08-24 11:01:00 Jory Girard spital [place] PROTHROMBIN TIME WITH INR 2021-08-24 11:01:00 [facility] 2021-08-24 11:01:00 Jory Girard spital [place] POC GLUCOSE 2021-08-24 03:07:00 Jennifer Ghosh Ho spital POC GLUCOSE 2021-08-24 00:11:00 Jennifer Ghosh COVID-19 QUALITATIVE 2021-08-23 22:15:00 Dayo Moeller [facility] RT-PCR POC GLUCOSE 2021-08-23 19:17:00 Jennifer Ghoshtal POC GLUCOSE 2021-08-23 14:05:00 Jennifer Ghosh HC COMPLETE BLD COUNT 2021-08-23 11:49:00 [facility] W/AUTO DIFF [facility] BASIC METABOLIC PANEL 2021-08-23 11:49:00 [facility] HEPATIC FUNCTION PANEL 2021-08-23 11:49:00 [facility] MAGNESIUM LEVEL 2021-08-23 11:49:00 Ting Jory Pierson [facility] PROTHROMBIN TIME WITH INR 2021-08-23 11:49:00 [facility] ALPHA FETOPROTEIN 2021-08-23 11:49:00 [facility] ALPHA-1 ANTITRYPSIN LEVEL 2021-08-23 11:49:00 [facility] ANTI SMOOTH MUSCLE AB 2021-08-23 11:49:00 [facility] SCREEN C-REACTIVE PROTEIN 2021-08-23 11:49:00 [facility] CANCER ANTIGEN 125 2021-08-23 11:49:00 [facility] CANCER ANTIGEN 19-9 2021-08-23 11:49:00 [facility] CARCINOEMBRYONIC ANTIGEN 2021-08-23 11:49:00 [facility] (CEA) CERULOPLASMIN LEVEL 2021-08-23 11:49:00 [facility] CORTISOL LEVEL, RANDOM 2021-08-23 11:49:00 [place] CORTISOL, FREE BY 2021-08-23 11:49:00 [facility] ED/LC-MS/MS CYTOMEGALOVIRUS AB, IGG 2021-08-23 11:49:00 [facility] CYTOMEGALOVIRUS AB, IGM 2021-08-23 11:49:00 [facility] DRUG KIM 9, SER/THAIS, SCRN 2021-08-23 11:49:00 [facility] W/RFLX TO CONF FERRITIN LEVEL 2021-08-23 11:49:00 [facility] FIBRINOGEN 2021-08-23 11:49:00 [facility] HEPATITIS A ANTIBODY IGM 2021-08-23 11:49:00 [facility] HEPATITIS A ANTIBODY TOTAL 2021-08-23 11:49:00 [facility] HEPATITIS B CORE ANTIBODY 2021-08-23 11:49:00 [facility] TOTAL HEPATITIS B SURFACE 2021-08-23 11:49:00 [facility] ANTIBODY HEPATITIS B SURFACE 2021-08-23 11:49:00 [facility] ANTIGEN HEPATITIS C ANTIBODY 2021-08-23 11:49:00 [facility] HIV AG/AB COMBINATION 2021-08-23 11:49:00 [facility] HIV-1 RNA, QUALITATIVE TMA 2021-08-23 11:49:00 [facility] HLA TRANSPLANT EVALUATION 2021-08-23 11:49:00 [facility] LIPID PANEL 2021-08-23 11:49:00 [facility] BARBITURATES, S/P, QUANT 2021-08-23 11:49:00 [facility] PARTIAL THROMBOPLASTIN 2021-08-23 11:49:00 [place] TIME (PTT) PHOSPHATIDYLETHANOL, BLOOD 2021-08-23 11:49:00 [facility] PHOSPHORUS LEVEL 2021-08-23 11:49:00 [facility] PREALBUMIN LEVEL 2021-08-23 11:49:00 [facility] SERUM ELECTROPHORESIS 2021-08-23 11:49:00 [facility] SYPHILIS TREPONEMA SCREEN 2021-08-23 11:49:00 [facility] WITH RPR CONFIRMATION (REVERSE ALGORITHM) T3, FREE 2021-08-23 11:49:00 [facility] TB T-SPOT 2021-08-23 11:49:00 [facility] TOTAL IRON BINDING 2021-08-23 11:49:00 [facility] CAPACITY ZINC LEVEL, SERUM 2021-08-23 11:49:00 [facility] ESTIMATED GFR 2021-08-23 11:49:00 Jory Girard spital [facility] SINGLE ANTIGEN BEADS 2021-08-23 11:49:00 [facility] C1Q CLASS 1 & 2 ANTIBODY 2021-08-23 11:49:[address] [facility] CT CHEST WO CONTRAST 2021-08-23 04:25:00 [facility] POC GLUCOSE 2021-08-23 02:55:00 Jennifer Ghoshtal US CAROTID DUPLEX 2021-08-23 02:40:00 [facility] BILATERAL TTE COMPLETE, WO CONTRAST, 2021-08-22 23:47:00 [facility] W AGITATED SALINE ([id number]) US ABDOMEN COMPLETE 2021-08-22 22:30:00 [facility] ECG 12-LEAD 2021-08-22 21:31:09 [facility] POC GLUCOSE 2021-08-22 13:43:00 Jennifer Ghosh HC COMPLETE BLD COUNT 2021-08-22 10:59:00 [facility] W/AUTO DIFF [facility] BASIC METABOLIC PANEL 2021-08-22 10:59:00 [facility] HEPATIC FUNCTION PANEL 2021-08-22 10:59:00 [facility] [place] MAGNESIUM LEVEL 2021-08-22 10:59:00 Jory Girard spital [place] PHOSPHORUS LEVEL 2021-08-22 10:59:00 Jory Girard H ospital [place] PROTHROMBIN TIME WITH INR 2021-08-22 10:59:00 [facility]FR 2021-08-22 10:59:00 Jory Girard spital [place] POC GLUCOSE 2021-08-22 03:06:00 [facility] POC GLUCOSE 2021-08-22 00:27:00 Jennifer Ghosh [facility] POC GLUCOSE 2021-08-21 19:09:00 Jennifer Ghosh Ho spital POC GLUCOSE 2021-08-21 13:46:00 Jory Girard Ho spital [place] HC COMPLETE BLD COUNT 2021-08-21 10:56:00 Ting Dangelo [facility] W/AUTO DIFF [facility] BASIC METABOLIC PANEL 2021-08-21 10:56:00 [facility] 2021-08-21 10:56:00 [facility] [place] MAGNESIUM LEVEL 2021-08-21 10:56:00 Jory Girard spital [place] PHOSPHORUS LEVEL 2021-08-21 10:56:00 Jory Girard ospital [place] PROTHROMBIN TIME WITH INR 2021-08-21 10:56:00 [facility] 2021-08-21 10:56:00 Jory Girard Ho spital [place] POC GLUCOSE 2021-08-21 03:20:00 Jory Girard Ho spital [place] POC GLUCOSE 2021-08-20 14:56:00 Jennifer Ghosh Ho spital HC COMPLETE BLD COUNT 2021-08-20 10:57:00 [facility] Pierson [facility]/AUTO DIFF [facility] BASIC METABOLIC PANEL 2021-08-20 10:57:00 [facility] 2021-08-20 10:57:00 [facility] [place] MAGNESIUM LEVEL 2021-08-20 10:57:00 Jory Girard PHOSPHORUS LEVEL 2021-08-20 10:57:00 Jory Girard ospimateo Self PROTHROMBIN TIME WITH INR 2021-08-20 10:57:00 [facility] ESTIMATED GFR 2021-08-20 10:57:00 Jory Girard spimateo [place] POC GLUCOSE 2021-08-20 02:42:00 Jory Girard spital [place] POC GLUCOSE 2021-08-19 20:04:00 Jory Girard HC COMPLETE BLD COUNT 2021-08-19 11:38:00 [facility]/AUTO DIFF [facility] BASIC METABOLIC PANEL 2021-08-19 11:38:00 [facility] HEPATIC FUNCTION PANEL 2021-08-19 11:38:00 [facility] MAGN[facility]UM LEVEL 2021-08-19 11:38:00 Jory Girard PHOSPHORUS LEVEL 2021-08-19 11:38:00 Jory Girardpimateo Self PROTHROMBIN TIME WITH INR 2021-08-19 11:38:00 [facility] ESTIMATED GFR 2021-08-19 11:38:00 Jory Girardalo POC GLUCOSE 2021-08-19 03:14:00 Jory Girardalo POC GLUCOSE 2021-08-18 23:30:00 Jory Girardalo POC GLUCOSE 2021-08-18 15:37:00 Jory Girard URINE CULTURE 2021-08-18 12:53:00 Jory Girard URINALYSIS SCREEN AND 2021-08-18 11:31:00 [facility] WITH REFLEX TO [facility] CULTURE LACTIC ACID LEVEL, SEPSIS 2021-08-18 10:21:00 [facility] - NOW AND REPEAT 2X EVERY 3 HOURS HC COMPLETE BLD COUNT 2021-08-18 10:21:00 [facility] W/AUTO DIFF [facility] BASIC METABOLIC PANEL 2021-08-18 10:21:00 [facility] HEPATIC FUNCTION PANEL 2021-08-18 10:21:00 [facility] MAGNESIUM LEVEL 2021-08-18 10:21:00 [facility] PHOSPHORUS L[facility] 2021-08-18 10:21:00 [facility] PROTHROMBIN TIME WITH INR 2021-08-18 10:21:00 [facility] ESTIMATED GFR 2021-08-18 10:21:00 [facility] Ho spital [facility] LACTIC ACID LEVEL, SEPSIS 2021-08-18 07:56:00 [facility] - NOW AND REPEAT 2X EVERY 3 HOURS BLOOD CULTURE, AEROBIC & 2021-08-18 05:00:00 [facility] ANAEROBIC [facility] ECG 12-LEAD 2021-08-18 04:24:[address] [facility] [address] ABDOMEN PELVIS WO 2021-08-18 04:19:03 [facility] CONTRAST CT HEAD WO CONTRAST 2021-08-18 04:18:21 [facility] LACTIC ACID LEVEL, SEPSIS 2021-08-18 03:37:00 [facility] - NOW AND REPEAT 2X EVERY 3 HOURS B NATRIURETIC PEPTIDE 2021-08-18 03:37:00 [facility] PROTHROMBIN TIME WITH INR 2021-08-18 03:20:00 [facility] AMMONIA LEVEL 2021-08-18 03:20:00 [facility] TROPONIN T 2021-08-18 03:20:00 [facility] XR CHEST 1 VW PORTABLE 2021-08-18 03:14:19 [facility] HC COMPLETE BLD COUNT 2021-08-18 03:03:00 [facility] W/AUTO DIFF COMPREHENSIVE METABOLIC 2021-08-18 03:03:00 [facility] PANEL ESTIMATED GFR 2021-08-18 03:03:00 [facility] RESPIRATORY PATHOGEN PANEL 2021-08-18 03:03:00 [facility] WITH COVID-19 RT-PCR ECG ED PRELIMINARY 2021-08-18 02:54:33 [facility] INTERPRETATION COVID-19 QUALITATIVE 2021-08-11 05:31:00 [facility] RT-PCR [facility] COMPREHENSIVE METABOLIC 2021-08-11 05:30:00 [facility] PANEL [facility] HC COMPLETE BLD COUNT 2021-08-11 05:30:00 [facility] W/AUTO DIFF [facility] LACTIC ACID, I-STAT 2021-08-11 05:30:00 [facility] ESTIMATED GFR 2021-08-11 05:30:00 [facility] ECG 12-LEAD 2021-08-11 05:15:35 [facility] URINALYSIS 2021-08-11 05:00:00 [facility] XR CHEST 1 VW PORTABLE 2021-08-11 04:27:00 [facility] LACTIC ACID, I-STAT 2021-06-28 22:37:00 Romero Limon [facility] URINALYSIS 2021-06-28 21:45:00 Romero Limon Ho spital HC COMPLETE BLD COUNT 2021-06-28 20:01:00 Romero Limon [facility] W/AUTO DIFF PROTHROMBIN TIME WITH INR, 2021-06-28 20:01:00 Romero Limon [facility] I-STAT COMPREHENSIVE METABOLIC 2021-06-28 20:01:00 [facility] PANEL LACTIC ACID, I-STAT 2021-06-28 20:01:00 Romero Limon [facility] SEDIMENTATION RATE 2021-06-28 20:01:00 Romero Limon [facility] ESTIMATED GFR 2021-06-28 20:01:00 [facility]Romero [facility] COVID-19 QUALITATIVE 2021-06-28 20:01:00 ErlindaRomero fitch [facility] RT-PCR BLOOD CULTURE, AEROBIC & 2021-06-28 20:01:00 ErlindaRomero [facility] ANAEROBIC HC COMPLETE BLD COUNT 2021-06-21 11:20:00 Dinakar, [facility] W/AUTO DIFF [facility] BASIC METABOLIC PANEL 2021-06-21 11:20:00 Dinakar, [facility] HEPATIC FUNCTION PANEL 2021-06-21 11:20:00 Dinakar, [facility] MAGNESIUM LEVEL 2021-06-21 11:20:00 Dinakar, [facility] PROTHROMBIN TIME WITH INR 2021-06-21 11:20:00 Dinakar, [facility] PHOSPHORUS LEVEL 2021-06-21 11:20:00 Dinakar, [facility] Temple H ospital [facility] ESTIMATED GFR 2021-06-21 11:20:00 Dinakar, [facility] PHOSPHATIDYLETHANOL, BLOOD 2021-06-21 11:20:00 [facility] URINE DRUGS OF ABUSE 2021-06-21 10:11:00 [facility] SCREEN URINALYSIS SCREEN AND 2021-06-21 10:10:00 [facility] MICROSCOPY, WITH REFLEX TO CULTURE URINE CULTURE 2021-06-21 10:10:00 [facility] SEROLOGY PATIENT 2021-06-20 17:52:00 Dinakar, [facility] SURVEILLANCE [facility] COVID-19 ANTI-SPIKE IGG 2021-06-20 17:52:00 Dinakar, [facility] ANTIBODY TITER [facility] HC COMPLETE BLD COUNT 2021-06-20 11:03:00 Dinakar, [facility] W/AUTO DIFF [facility] BASIC METABOLIC PANEL 2021-06-20 11:03:00 Dinakar, [facility] HEPATIC FUNCTION PANEL 2021-06-20 11:03:00 Dinakar, [facility] MAGNESIUM LEVEL 2021-06-20 11:03:00 Dinakar, Pierce Duckworth spital [facility] PROTHROMBIN TIME WITH INR 2021-06-20 11:03:00 Dinakar, [facility] PHOSPHORUS LEVEL 2021-06-20 11:03:00 Dinakar, Pierce [facility] [place] ESTIMATED GFR 2021-06-20 11:03:00 Dinakar, Pierce lynn [facility] XR ABDOMEN 1 VW PORTABLE 2021-06-20 00:11:00 [facility] 2021 11:27:00 Jennifer Ghosh HC COMPLETE BLD COUNT 2021 11:24:00 Jennifer Ghosh [facility] W/AUTO DIFF PROTHROMBIN TIME WITH INR 2021 11:24:[address] [facility] COMPREHENSIVE METABOLIC 2021 11:24:00 Jennifer Ghosh [facility] PANEL PHOSPHORUS LEVEL 2021 11:24:00 Jennifer Ghosh ospital MAGNESIUM LEVEL 2021 11:24:00 Jenniefr Ghosh spital HEMOGLOBIN A1C 2021 11:24:00 Jennifer Ghosh spital THYROID STIMULATING 2021 11:24:00 Jennifer Ghosh [facility] HORMONE T4 2021 11:24:00 [facility]g [facility] VITAMIN D 25 HYDROXY LEVEL 2021 11:24:00 [facility] ESTIMATED GFR 2021 11:24:00 Jennifer [facility] LACTIC ACID, I-STAT 2021 01:31:00 [facility] COVID-19 QUALITATIVE 2021 01:21:[address] [facility] RT-PCR CLOSTRIDIUM DIFFICILE 2021 00:30:00 Diana Bangura [facility] TOXIN ENTERIC BACTERIAL PANEL 2021 00:30:00 [facility] URIN[facility]IS 2021 00:09:00 [facility] COMPREHENSIVE METABOLIC 2021-06-18 22:51:00 [facility] PANEL AMYLASE LEVEL 2021-06-18 22:51:00 [facility] 2021-06-18 22:51:00 [facility] HC COMPLETE BLD COUNT 2021-06-18 21:51:00 [facility]FF COMPREHENSIVE METABOLIC 2021-06-18 21:51:00 [facility] PANEL LACTIC ACID, I-STAT 2021-06-18 21:51:00 [facility] AMYLASE LEVEL 2021-06-18 21:51:00 [facility] GFR 2021-06-18 21:51:00 [facility] AMMONIA LEVEL 2021-06-18 21:47:00 [facility] HC COMPLETE BLD COUNT 2021-06-02 09:45:00 [facility] W/AUTO DIFF PROTHROMBIN TIME WITH INR 2021-06-02 09:45:00 [facility] BASIC METABOLIC PANEL 2021-06-02 09:45:00 [facility] HEPATIC FUNCTION PANEL 2021-06-02 09:45:00 [facility] PHOSPHORUS LEVEL 2021-06-02 09:45:00 [facility] MAGNESIUM LEVEL 2021-06-02 09:45:00 [facility] ESTIMATED GFR 2021-06-02 09:45:00 [facility] US ABDOMINAL LIMITED 2021-06-01 21:06:20 Joana Ling [facility] VENIPUNC NEED PHYS 2021-06-01 14:32:45 Brian Linda [facility] SKILL,DX OR RX HC COMPLETE BLD COUNT 2021-06-01 10:30:00 [facility] W/AUTO DIFF PROTHROMBIN TIME WITH INR 2021-06-01 10:30:00 [facility] BASIC METABOLIC PANEL 2021-06-01 10:30:00 [facility] HEPATIC FUNCTION PANEL 2021-06-01 10:30:00 [facility] PHOSPHORUS LEVEL 2021-06-01 10:30:00 [facility] MAGNESIUM LEVEL 2021-06-01 10:30:00 [facility] HEMOGLOBIN A1C 2021-06-01 10:30:00 [facility] THYROID STIMULATING 2021-06-01 10:30:00 [facility] HORMONE T4 2021-06-01 10:30:00 [facility] VITAMIN D 25 HYDROXY LEVEL 2021-06-01 10:30:00 [facility] ZINC LEVEL, SERUM 2021-06-01 10:30:00 [facility] ALPHA FETOPROTEIN 2021-06-01 10:30:00 [facility] AMMONIA LEVEL 2021-06-01 10:30:00 [facility] ESTIMATED GFR 2021-06-01 10:30:00 [facility] PHOSPHATIDYLETHANOL, BLOOD 2021-06-01 10:30:00 [facility] URINE CULTURE 2021-06-01 02:48:00 [facility] BLOOD CULTURE, AEROBIC & 2021-06-01 02:43:00 [facility] ANAEROBIC BLOOD CULTURE, AEROBIC & 2021-06-01 02:42:00 [facility] ANAEROBIC URINALYSIS SCREEN AND 2021-06-01 02:40:00 [facility] MICROSCOPY, WITH REFLEX TO CULTURE URINE DRUGS OF ABUSE 2021-06-01 02:40:00 [facility] SCREEN URIC ACID LEVEL 2021-06-01 02:38:00 [facility] PROTHROMBIN TIME WITH INR 2021-06-01 02:38:00 [facility] PHOSPHORUS LEVEL 2021-06-01 02:38:00 [facility] PARTIAL THROMBOPLASTIN 2021-06-01 02:38:00 [facility] TIME (PTT) MAGNESIUM LEVEL 2021-06-01 02:38:00 [facility] HEPATIC FUNCTION PANEL 2021-06-01 02:38:00 [facility] LDH 2021-06-01 02:38:00 [facility] LACTIC ACID LEVEL 2021-06-01 02:38:00 [facility] FIBRINOGEN 2021-06-01 02:38:00 [facility] HC COMPLETE BLD COUNT 2021-06-01 02:38:00 [facility] W/AUTO DIFF BASIC METABOLIC PANEL 2021-06-01 02:38:00 [facility] AMMONIA LEVEL 2021-06-01 02:38:00 [facility] ESTIMATED GFR 2021-06-01 02:38:00 [facility] ospimateo COVID-19 SEROLOGY PATIENT 2021-06-01 02:38:00 Heriberto York [facility] SURVEILLANCE COVID-19 ANTI-SPIKE IGG 2021-06-01 02:38:00 Heriberto York [facility] ANTIBODY TITER ECG 12-LEAD 2021-06-01 01:06:10 [facility] ABD[facility]EN 1 VW PORTABLE 2021-06-01 01:06:[address] [facility] XR CHEST 1 VW PORTABLE 2021-06-01 01:02:00 Heriberto York [facility] COVID-19 QUALITATIVE 2021-06-01 00:37:00 Heriberto York [facility] RT-PCR HC COMPLETE BLD COUNT 2021-05-27 10:09:00 [facility] DIFF [facility] BASIC METABOLIC PANEL 2021-05-27 10:09:00 [facility] HEPATIC FUNCTION PANEL 2021-05-27 10:09:00 [facility] MAGNESIUM LEVEL 2021-05-27 10:09:00 Jory Girard PHOSPHORUS LEVEL 2021-05-27 10:09:00 Jory Girard PROTHROMBIN TIME WITH INR 2021-05-27 10:09:00 [facility] ESTIMATED GFR 2021-05-27 10:09:00 Jory Girard [facility] VENOUS BLOOD GAS 2021-05-26 23:37:00 Nia Faustin HC COMPLETE BLD COUNT 2021-05-26 09:02:00 [facility] W/AUTO DIFF [facility] PROTHROMBIN TIME WITH INR 2021-05-26 09:02:00 [facility]Y PATIENT 2021-05-26 09:02:[address] [facility] SURVEILLANCE Tom SMEAR REVIEW 2021-05-26 09:02:00 Jory Girard PHOSPHATIDYLETHANOL, BLOOD 2021-05-26 09:02:00 Palak Mayorga [facility] COVID-19 ANTI-SPIKE IGG 2021-05-26 09:02:00 Abe Partida [facility] ANTIBODY TITER Tom BASIC METABOLIC PANEL 2021-05-26 09:00:00 [facility] PANEL 2021-05-26 09:00:00 [facility] MAGNESIUM LEVEL 2021-05-26 09:00:00 Jory Girard PHOSPHORUS LEVEL 2021-05-26 09:00:00 Jory Girard ospimateo Self ALPHA FETOPROTEIN 2021-05-26 09:00:00 [facility] ZINC LEVEL, SERUM 2021-05-26 09:00:00 [facility] ESTIMATED GFR 2021-05-26 09:00:00 Jory Girard URINALYSIS SCREEN AND 2021-05-25 23:41:00 [facility] Dangelo [facility] MICROSCOPY, WITH REFLEX TO [place] CULTURE URINE DRUGS OF ABUSE 2021-05-25 23:41:00 [facility] SCREEN [facility] URINE CULTURE 2021-05-25 23:41:00 Jory Girard US HEPATIC 2021-05-25 20:43:26 Jory Girard US ABDOMINAL DOPPLER 2021-05-25 20:40:00 [facility] COMPLETE BLD COUNT 2021-05-25 18:10:00 Ting Pierson [facility] W/AUTO DIFF [place] SMEAR REVIEW 2021-05-25 18:10:00 Jory Girard V[facility]UNC NEED PHYS 2021-05-25 15:59:39 Tristin Hunt [facility] SKILL,DX OR RX CBC WITH PLATELET AND 2021-05-25 13:57:00 Ting Pierson [facility] DIFFERENTIAL [facility] COMPREHENSIVE METABOLIC 2021-05-25 13:57:00 [facility] PANEL [place] ESTIMATED GFR 2021-05-25 13:57:00 Jory Girard spimateo [place] LACTIC ACID, I-STAT 2021-05-25 00:58:00 Romero Limon [facility] COVID-19 QUALITATIVE 2021-05-25 00:00:00 Romero Limon [facility] RT-PCR CT ABDOMEN PELVIS WO 2021-05-24 23:16:57 Romero iLmon [facility] CONTRAST URINALYSIS 2021-05-24 22:19:00 Romero Limon HC COMPLETE BLD COUNT 2021-05-24 22:13:00 Romero Limon [facility] W/AUTO DIFF COMPREHENSIVE METABOLIC 2021-05-24 22:13:00 Romero Limon [facility] PANEL AMYLASE LEVEL 2021-05-24 22:13:00 Romero Limon LACTIC ACID, I-STAT 2021-05-24 22:13:00 Romero Limon [facility] ESTIMATED GFR 2021-05-24 22:13:00 Romero Limon BLOOD CULTURE, AEROBIC & 2021-05-24 22:00:00 Romero Limon [facility] ANAEROBIC CBC HEMOGRAM 2020-11-23 05:55:00 Jory Girard PROTHROMBIN TIME WITH INR 2020-11-23 05:55:00 [facility] COMPREHENSIVE METABOLIC 2020-11-23 05:55:00 [facility] PANEL [place] ESTIMATED GFR 2020-11-23 05:55:00 Jory Girard [facility] COVID-19 QUALITATIVE 2020-11-23 01:57:00 Wild Kovacs [facility] RT-PCR [place] LACTIC ACID, I-STAT 2020-11-23 01:40:00 Romero Limon [facility] CT HEAD WO CONTRAST 2020-11-22 23:20:00 Romero Limon [facility] HC COMPLETE BLD COUNT 2020-11-22 22:53:00 Romero Limon [facility] W/AUTO DIFF COMPREHENSIVE METABOLIC 2020-11-22 22:53:00 Romero Limon [facility] PANEL LACTIC ACID, I-STAT 2020-11-22 22:53:00 Romero Limon [facility] AMMONIA LEVEL 2020-11-22 22:53:00 Romero Limon Ho spital VENOUS BLOOD GAS 2020-11-22 22:53:00 Romero Limon H ospital ESTIMATED GFR 2020-11-22 22:53:00 Romero Limon Ho spital XR ABDOMEN ACUTE INC CHEST 2020-11-02 22:51:00 Cliff Levy [facility] 1V ESTIMATED GFR 2020-11-02 21:55:00 [facility] HC COMPLETE BLD COUNT 2020-11-02 21:55:00 [facility] W/AUTO DIFF COMPREHENSIVE METABOLIC 2020-11-02 21:55:00 [facility] PANEL PROTHROMBIN TIME WITH INR 2020-11-02 21:55:00 [facility] COVID-19 QUALITATIVE 2020-11-02 21:05:00 [facility] RT-PCR NM BRAIN SPECT W I 123 2020-10-26 19:02:00 Cliff Levy [facility] DATSCAN HC COMPLETE BLD COUNT 2020-10-24 10:15:00 [facility] W/AUTO DIFF BASIC METABOLIC PANEL 2020-10-24 10:15:00 [facility] HEPATIC FUNCTION PANEL 2020-10-24 10:15:00 [facility] MAGNESIUM LEVEL 2020-10-24 10:15:00 [facility] PHOSPHORUS LEVEL 2020-10-24 10:15:00 [facility] PROTHROMBIN TIME WITH INR 2020-10-24 10:15:00 [facility] HEMOGLOBIN A1C 2020-10-24 10:15:00 [facility] THYROID STIMULATING 2020-10-24 10:15:00 [facility] HORMONE T4 2020-10-24 10:15:00 [facility] VITAMIN D 25 HYDROXY LEVEL 2020-10-24 10:15:00 [facility] ZINC LEVEL, SERUM 2020-10-24 10:15:00 [facility] ALPHA FETOPROTEIN 2020-10-24 10:15:00 [facility] ESTIMATED GFR 2020-10-24 10:15:00 [facility] URINE DRUGS OF ABUSE 2020-10-24 10:00:00 [facility] SCREEN LACTIC ACID LEVEL, SEPSIS 2020-10-24 06:20:00 [facility] - NOW AND REPEAT 2X EVERY 3 HOURS LACTIC ACID LEVEL, SEPSIS 2020-10-24 02:25:00 [facility] - NOW AND REPEAT 2X EVERY 3 HOURS XR CHEST 1 VW PORTABLE 2020-10-24 00:08:00 Rehrer, [facility] BLOOD CULTURE, AEROBIC & 2020-10-23 23:31:00 Rehrer, [facility] ANAEROBIC RESPIRATORY PATHOGEN PANEL 2020-10-23 23:31:00 Rehrer, [facility] WITH COVID-19 RT-PCR COMPREHENSIVE METABOLIC 2020-10-23 23:31:00 Rehrer, [facility] PANEL PHOSPHORUS LEVEL 2020-10-23 23:31:00 Rehrer, [facility] MAGNESIUM LEVEL 2020-10-23 23:31:00 Rehrer, [facility] LACTIC ACID LEVEL, SEPSIS 2020-10-23 23:31:00 [facility] - NOW AND REPEAT 2X EVERY 3 HOURS LIPASE LEVEL 2020-10-23 23:31:00 Rehrer, [facility] ESTIMATED GFR 2020-10-23 23:31:00 Rehrer, [facility] HC COMPLETE BLD COUNT 2020-10-23 23:20:00 Rehrer, [facility] W/AUTO DIFF PROTHROMBIN TIME WITH INR 2020-10-23 23:20:00 Rehrer, [facility] PARTIAL THROMBOPLASTIN 2020-10-23 23:20:00 Rehrer, [facility] TIME (PTT) AMMONIA LEVEL 2020-10-23 23:20:00 Rehrer, [facility] HC COMPLETE BLD COUNT 2020-10-10 00:05:00 [facility] W/AUTO DIFF COMPREHENSIVE METABOLIC 2020-10-10 00:05:00 [facility] PANEL LACTIC ACID, I-STAT 2020-10-10 00:05:00 [facility] AMMONIA LEVEL 2020-10-10 00:05:00 [facility] ESTIMATED GFR 2020-10-10 00:05:00 [facility] URINALYSIS 2020-10-09 23:32:00 [facility] ECG 12-LEAD 2020-10-09 23:18:11 [facility] HC COMPLETE BLD COUNT 2020-09-21 10:28:00 [facility] W/AUTO DIFF BASIC METABOLIC PANEL 2020-09-21 10:28:00 [facility] HEPATIC FUNCTION PANEL 2020-09-21 10:28:00 [facility] MAGNESIUM LEVEL 2020-09-21 10:28:00 [facility] PHOSPHORUS LEVEL 2020-09-21 10:28:00 [facility] PROTHROMBIN TIME WITH INR 2020-09-21 10:28:00 [facility] MISCELLANEOUS REFERRAL 2020-09-21 10:28:[address] [facility] TEST VITAMIN B12 LEVEL 2020-09-21 10:28:00 [facility] FOLATE LEVEL 2020-09-21 10:28:00 [facility] ESTIMATED GFR 2020-09-21 10:28:00 [facility] COVID-19 QUALITATIVE 2020-09-20 20:51:00 PerezRobby [facility] RT-PCR Gabriel HC COMPLETE BLD COUNT 2020-09-20 12:08:00 [facility] W/AUTO DIFF BASIC METABOLIC PANEL 2020-09-20 12:08:00 [facility] HEPATIC FUNCTION PANEL 2020-09-20 12:08:00 [facility] MAGNESIUM LEVEL 2020-09-20 12:08:00 [facility] PHOSPHORUS LEVEL 2020-09-20 12:08:00 [facility] PROTHROMBIN TIME WITH INR 2020-09-20 12:08:00 [facility] HEMOGLOBIN A1C 2020-09-20 12:08:00 [facility] THYROID STIMULATING 2020-09-20 12:08:00 [facility] HORMONE T4 2020-09-20 12:08:00 [facility] VITAMIN D 25 HYDROXY LEVEL 2020-09-20 12:08:00 [facility] ZINC LEVEL, SERUM 2020-09-20 12:08:00 [facility] ALPHA FETOPROTEIN 2020-09-20 12:08:00 [facility] ESTIMATED GFR 2020-09-20 12:08:00 York, Heriberto [facility] CERVICAL SPINE WO 2020-09-20 06:50:26 [facility] PELVIS WO CONTRAST 2020-09-20 06:50:[facility] 2020-09-20 06:50:07 Bonny Rod [facility] [place] CRITICAL CARE, E/M 2020-09-20 04:05:41 [facility] [place] URINE CULTURE 2020-09-20 04:00:00 Bonny Rod spital [place] URINALYSIS SCREEN AND 2020-09-20 04:00:00 Marcel [facility] MICROSCOPY, WITH REFLEX TO [place] CULTURE URINE DRUGS OF ABUSE 2020-09-20 04:00:00 Bonny Rod [facility] SCREEN [place] MAGNESIUM LEVEL 2020-09-20 04:00:00 Bonny Rod Ho spital [place] TROPONIN 2020-09-20 04:00:00 Bonny Rod [facility] [place] XR KNEE 3 VW LEFT 2020-09-20 02:06:[address] [facility] XR KNEE 3 VW RIGHT 2020-09-20 02:06:[address] [facility] XR SHOULDER 2+ VW RIGHT 2020-09-20 02:05:46 Bonny Rod [facility] HC COMPLETE BLD COUNT 2020-09-20 02:05:00 Bonny Rod [facility] W/AUTO DIFF [facility] PROTHROMBIN TIME WITH INR 2020-09-20 02:05:00 Bonny Rod [facility] PARTIAL THROMBOPLASTIN 2020-09-20 02:05:00 [facility] [place] COMPREHENSIVE METABOLIC 2020-09-20 02:05:00 [facility] [place] TROPONIN 2020-09-20 02:05:00 Bonny Rod [facility] NATRIURETIC PEPTIDE 2020-09-20 02:05:00 Bonny Rod [facility] AMMONIA LEVEL 2020-09-20 02:05:00 Bonny Rod [facility] Renee ALCOHOL LEVEL, BLOOD 2020-09-20 02:05:00 Bonny Rod [facility] ESTIMATED GFR 2020-09-20 02:05:00 Bonny Rod [facility] Renee Plan of Care Planned Activity Planned Date Details Comments Source Future Scheduled 2024-08-23 Lipid panel (procedure) [facility] 00:00:00 [code = 24841981] Medical Ce nter Future Scheduled 2024-08-23 Lipid panel (procedure) [facility] 00:00:00 [code = 64699447] Medical Ce nter Future Scheduled 2024-08-23 Lipid panel (procedure) [facility] 00:00:00 [code = 08308320] Medical Ce nter Future Scheduled 2024-08-23 Lipid panel (procedure) [facility] 00:00:00 [code = 50893347] Medical Ce nter Future Scheduled 2024-08-23 Lipid panel (procedure) [facility] 00:00:00 [code = 41776659] Medical Ce nter Future Scheduled 2024-08-23 Lipid panel (procedure) [facility] 00:00:00 [code = 20418535] Medical Ce nter Future Scheduled 2024-08-23 Lipid panel (procedure) [facility] 00:00:00 [code = 38164688] Medical Ce nter Future Scheduled 2024-08-23 Lipid panel (procedure) [facility] 00:00:00 [code = 62566863] Medical Ce nter Future Scheduled 2023-04-12 INFLUENZA [...] (#1)] Future Scheduled 2021-09-12 BREAST CANCER SCREENING [facility] 12:13:11 [code = BREAST CANCER Hospit al SCREENING] Future Scheduled 2021-09-12 COVID-19 VACCINE (2 - [facility] 12:13:11 [facility]oster for [facility] series) [code = COVID-19 VACCINE (2 - Booster for [facility] series)] Future Scheduled 2021-09-12 INFLUENZA VACCINE [code = [facility] 12:13:11 INFLUENZA VACCINE] Hospital Future Scheduled 2021-09-12 Screening for malignant [facility] 12:13:11 neoplasm of cervix Hospital (procedure) [code = 391056557] Future Scheduled 2021-08-[address] [facility] 00:00:00 2) [code = SHINGLES [facility] Center VACCINES (1 of 2)] Future Scheduled 2011 SHINGLES VACCINES ([address] [facility] 00:00:00 2) [code = SHINGLES [facility] Center VACCINES (1 of 2)] Future Scheduled 2011 SHINGLES VACCINES ([address] [facility] 00:00:00 [facility] Future Scheduled 2011 SHINGLES VACCINES ([address] [facility] 00:00:00 2) [facility])] Future Scheduled 2006 Lipid panel (procedure) [facility] 00:00:00 [code = 57074784] Medical Ce nter Future Scheduled 1982 Screening for malignant [facility] Test 00:00:00 neoplasm of cervix Medical C enter (procedure) [code = 007252860] Future Scheduled 1982 Screening for malignant [facility] Test 00:00:00 neoplasm of cervix Medical C enter (procedure) [code = 893495011] Future Scheduled 1982 Screening for malignant [facility] 00:00:00 neoplasm of cervix Medical C enter (procedure) [code = 758927832] Future Scheduled 1982 Screening for malignant [facility] 00:00:00 neoplasm of cervix Medical C enter (procedure) [code = 273093721] Future Scheduled 1982 Screening for malignant [facility] 00:00:00 neoplasm of cervix Medical C enter (procedure) [code = 842247914] Future Scheduled 1982 Screening for malignant [facility] 00:00:00 neoplasm of cervix Medical C enter (procedure) [code = 826097035] Future Scheduled 1982 Screening for malignant [facility] 00:00:00 neoplasm of cervix Medical C enter (procedure) [code = 936018800] Future Scheduled 1982 Screening for malignant [facility] 00:00:00 neoplasm of cervix Medical C enter (procedure) [code = 284444595] Future Scheduled 1982 Screening for malignant [facility] 00:00:00 neoplasm of cervix Medical C enter (procedure) [code = 988476416] Future Scheduled 1980 DTAP/TDAP/TD VACCINES (1 [facility] [...] screening [facility] er (procedure) [code = 975629186] Future Scheduled [address] [facility]00 virus screening [facility] (procedure) [code = 244743416] Future Scheduled [address] [facility] 00:00:00 virus screening [facility] (procedure) [code = 831629561] Future Scheduled 1973 COVID-19 VACCINE (1) [facility] [...] breast Medical C enter (procedure) [code = 293892833] Future Scheduled 1961 Screening for malignant [facility] 00:00:00 neoplasm of colon Medical Ce nter (procedure) [code = 236008220] Future Scheduled 1961 Screening for malignant [facility] 00:00:00 neoplasm of breast Medical C enter (procedure) [code = 784559742] Future Scheduled 1961 CT Colonography (combo) [facility] 00:00:00 [code = CT Colonography Medi cj Center (combo)] Future Scheduled 1961 Screening for malignant [facility] 00:00:00 neoplasm of colon Medical Ce nter (procedure) [code = 646605186] Future Scheduled 1961 Screening for malignant [facility] 00:00:00 neoplasm of colon Medical Ce nter (procedure) [code = 331686914] Future Scheduled 1961 Screening for malignant [facility] 00:00:00 neoplasm of colon Medical Ce nter (procedure) [code = 662159277] Future Scheduled 1961 Screening for malignant [facility] 00:00:00 neoplasm of colon Medical Ce nter (procedure) [code = 576282657] Future Scheduled 1961 Sigmoidoscopy [code [facility] S[facility]oscopy] Medical Cente r Future Scheduled 1961 Screening for malignant [facility] 00:00:00 neoplasm of breast Medical C enter (procedure) [code = 018844411] Future Scheduled 1961 CT Colonography (combo) [facility] 00:00:00 [code = CT Colonography Medi cj Center (combo)] Future Scheduled 1961 Screening for malignant [facility] 00:00:00 neoplasm of colon Medical Ce nter (procedure) [code = 024127827] Future Scheduled 1961 Screening for malignant [facility] 00:00:00 neoplasm of colon Medical Ce nter (procedure) [code = 221685989] Future Scheduled 1961 Screening for malignant [facility] 00:00:00 neoplasm of colon Medical Ce nter (procedure) [code = 850315957] Future Scheduled 1961 Screening for malignant [facility] 00:00:00 neoplasm of colon Medical Ce nter (procedure) [code = 969786141] Future Scheduled 1961 Sigmoidoscopy [facility]code [facility]00 Sigmoidoscopy] Medical Cente r Future Scheduled 1961 Screening for malignant [facility] 00:00:00 neoplasm of breast Medical C enter (procedure) [code = 585754821] Future Scheduled 1961 CT Colonography (combo) [facility] 00:00:00 [code = CT Colonography Medi cj Center (combo)] Future Scheduled 1961 Screening for malignant [facility] 00:00:00 neoplasm of colon Medical Ce nter (procedure) [code = 821686594] Future Scheduled 1961 Screening for malignant [facility] 00:00:00 neoplasm of colon Medical Ce nter (procedure) [code = 042173163] Future Scheduled 1961 Screening for malignant [facility] 00:00:00 neoplasm of colon Medical Ce nter (procedure) [code = 961644789] Future Scheduled 1961 Screening for malignant [facility] 00:00:00 neoplasm of colon Medical Ce nter (procedure) [code = 702090895] Future Scheduled 1961 Sigmoidoscopy [facility]code = [facility] Medical Cente r Future Scheduled 1961 Screening for malignant [facility] 00:00:00 neoplasm of breast Medical C enter (procedure) [code = 680913945] Future Scheduled 1961 CT Colonography (combo) [facility] 00:00:00 [code = CT Colonography Medi cj Center (combo)] Future Scheduled 1961 Screening for malignant [facility] 00:00:00 neoplasm of colon Medical Ce nter (procedure) [code = 650858885] Future Scheduled 1961 Screening for malignant [facility] 00:00:00 neoplasm of colon Medical Ce nter (procedure) [code = 325438226] Future Scheduled 1961 Screening for malignant [facility] 00:00:00 neoplasm of colon Medical Ce nter (procedure) [code = 428394737] Future Scheduled 1961 Screening for malignant [facility] 00:00:00 neoplasm of colon Medical Ce nter (procedure) [code = 166888482] Future Scheduled 1961 Sigmoidoscopy [facility]code = [facility]oscopy] Medical Cente r Future Scheduled 1961 Screening for malignant [facility] 00:00:00 neoplasm of breast Medical C enter (procedure) [code = 080703528] Future Scheduled 1961 CT Colonography (combo) [facility] 00:00:00 [code = CT Colonography Medi cj Center (combo)] Future Scheduled 1961 Screening for malignant [facility] 00:00:00 neoplasm of colon Medical Ce nter (procedure) [code = 464288260] Future Scheduled 1961 Screening for malignant [facility] 00:00:00 neoplasm of colon Medical Ce nter (procedure) [code = 538633739] Future Scheduled 1961 Screening for malignant [facility] 00:00:00 neoplasm of colon Medical Ce nter (procedure) [code = 320309175] Future Scheduled 1961 Screening for malignant [facility] 00:00:00 neoplasm of colon Medical Ce nter (procedure) [code = 216781470] Future Scheduled 1961 Sigmoidoscopy [facility]code = [facility]oscopy] Medical Cente r Future Scheduled 1961 Screening for malignant [facility] 00:00:00 neoplasm of breast Medical C enter (procedure) [code = 621184373] Future Scheduled 1961 CT Colonography (combo) [facility] 00:00:00 [code = CT Colonography [facility] (combo)] Future Scheduled 1961 Screening for malignant [facility] 00:00:00 neoplasm of colon Medical Ce nter (procedure) [code = 251972542] Future Scheduled 1961 Screening for malignant [facility] 00:00:00 neoplasm of colon Medical Ce nter (procedure) [code = 385535307] Future Scheduled 1961 Screening for malignant [facility] 00:00:00 neoplasm of colon Medical Ce nter (procedure) [code = 678088005] Future Scheduled 1961 Screening for malignant [facility] 00:00:00 neoplasm of colon Medical Ce nter (procedure) [code = 630427629] Future Scheduled 1961 Sigmoidoscopy [facility]code = [facility] S[facility]oscopy] Medical Cente r Future Scheduled 1961 Screening for malignant [facility] 00:00:00 neoplasm of breast Medical C enter (procedure) [code = 529074456] Future Scheduled 1961 CT Colonography (combo) [facility] 00:00:00 [code = CT Colonography [facility] (combo)] Future Scheduled 1961 Screening for malignant [facility] 00:00:00 neoplasm of colon Medical Ce nter (procedure) [code = 598423318] Future Scheduled 1961 Screening for malignant [facility] 00:00:00 neoplasm of colon Medical Ce nter (procedure) [code = 578024578] Future Scheduled 1961 Screening for malignant [facility] 00:00:00 neoplasm of colon Medical Ce nter (procedure) [code = 476496304] Future Scheduled 1961 Screening for malignant [facility] 00:00:00 neoplasm of colon Medical Ce nter (procedure) [code = 859959214] Future Scheduled 1961 Sigmoidoscopy [facility]code = [facility]oscopy] Medical Cente r Future Scheduled 1961 Screening for malignant [facility] 00:00:00 neoplasm of breast Medical C enter (procedure) [code = 305066342] Future Scheduled 1961 CT Colonography (combo) [facility] 00:00:00 [code = CT Colonography [facility] (combo)] Future Scheduled 1961 Screening for malignant [facility] 00:00:00 neoplasm of colon Medical Ce nter (procedure) [code = 096999545] Future Scheduled 1961 Screening for malignant [facility] 00:00:00 neoplasm of colon Medical Ce nter (procedure) [code = 644533879] Future Scheduled 1961 Screening for malignant [facility] 00:00:00 neoplasm of colon Medical Ce nter (procedure) [code = 610362728] Future Scheduled 1961 Screening for malignant [facility] 00:00:00 neoplasm of colon Medical Ce nter (procedure) [code = 093578481] Future Scheduled 1961 Sigmoidoscopy [facility]code [facility] S[facility]oscopy] Medical Cente r Encounters Start End Encounter Admission Attending Care Care Encounter Source Date/Time Date/Time Type Type Clinicians Facility Department ID 2022-04-27 Outpatient Man, STLMLC STLMLC [id number] Common 10:06:00 Fernando [address] [facility] 2022-03-26 [facility] [id number] 11:28[facility]10 [facility] 2022-03-22 Outpatient Man, STLMLC STLMLC [id number] Common 08:23:00 Fernando 50691 [facility] 2021-09-06 Outpatient Man, STLMLC STLMLC [id number] Common 13:49:19 Fernando 35606 [facility] 2021-09-06 Outpatient Man, STLMLC STLMLC [id number] Common 13:45:16 Fernando 98769 [facility] 2021-09-06 Outpatient Man, STLMLC STLMLC [id number] Common 12:49:41 Fernando 21441 [facility] 2021-09-06 Outpatient Man, STLMLC STLMLC [id number] Common 12:05:14 Fernando 55777 [facility] 2021-09-06 Outpatient Man, STLMLC STLMLC [id number] Common 12:03:44 Fernando 98934 [facility] 2021-09-06 Outpatient Man, STLMLC STLMLC [id number] Common 11:42:32 Fernando 42589 [facility] 2021-09-06 Outpatient Man, STLMLC STLMLC [id number] Common 11:33:04 Fernando 66084 [facility] 2023-03-12 2023-03-13 Outpatient HOBEIKA, [facility] Hos [id number] Spring 00:00:00 00:00:[address] RIANA [address] 2023-03-07 2023-03-11 Outpatient GURU IVIS [facility] [id number] Spring 00:00:00 00:00:[address] 2023-03-07 2023-03-07 Outpatient SAHARIA, [facility] [id number] Spring 00:00:00 00:00:00 PEDRO [address] 2023-03-07 2023-03-07 Outpatient BAMBI, [facility] [id number] Spring 00:00:00 00:00:00 JONNIK [address] 2023-03-07 2023-03-07 Outpatient [facility] [id number] Spring 00:00:00 00:00:[address] 2023-01-28 2023-01-28 Outpatient SAHARIA, [facility] 064 [id number] Spring 00:00:00 00:00:00 [address]DRO [address] 2022-12-20 2022-12-20 Outpatient SAHARIA, [facility] [id number] Spring 00:00:00 00:00:00 PEDRO [address] 2022-12-20 2022-12-20 Outpatient BAMBI, [facility] [id number] Spring 00:00:00 00:00:00 RAY 406 Method i 2022-12-20 2022-12-20 Outpatient BAMBI, [facility] [id number] Spring 00:00:00 00:00:00 RAY 416 Method i 2022-12-20 2022-12-20 Outpatient GALATI, [facility] [id number] Spring 00:00:00 00:00:00 CALOS 400 Method i 2022-12-17 2022-12-17 Emergency NUSZEN, [facility] 064 [id number] Spring 00:00:00 00:00:00 ROMERO 152 Method i 2022-11-27 2022-11-27 Outpatient HAWK, [facility] [id number] Spring 00:00:00 00:00:00 DAKSHA 745 Method i 2022-11-22 2022-11-22 Outpatient BAMBI, [facility] [id number] Spring 00:00:00 00:00:00 JONNIK 159 Method i 2022-11-15 2022-11-15 Outpatient RENÉ, [facility] [id number] Spring 00:00:00 00:00:00 COLIN 378 Method i 2022-11-08 2022-11-08 Outpatient SAHARIA, [facility] [id number] Spring 00:00:00 00:00:00 PEDRO 556 Method i 2022-11-08 2022-11-08 Outpatient SAHARIA, [facility] [id number] Spring 00:00:00 00:00:00 PEDRO 153 Method i 2022-11-08 2022-11-08 Outpatient [facility] [id number] Spring 00:00:00 00:00:00 233 Method i 2022-11-07 2022-11-07 Emergency [facility] [id number] Univers 12:40:00 13:55:00 MARTELL tatum [facility] 2022-11-07 2022-11-07 Emergency [facility] 1.2.275.388 [id number] Univers 12:40:00 13:55:00 Martell PORRAS 350.1.13.10 maverick carrera [facility] 4.2.7.2.686 [facility] [phone] [address] 2022-10-22 2022-10-22 Outpatient BAMBI, [facility] [id number] Spring 00:00:00 00:00:00 RAFIK 146 Method i 2022-10-22 2022-10-22 Outpatient [facility] [id number] Spring 00:00:00 00:00:00 350 Method i 2022-10-18 2022-10-18 Outpatient BAMBI, [facility] [id number] Spring 00:00:00 00:00:00 RAFIK 695 Method i 2022-10-18 2022-10-18 Outpatient [facility] [id number] Spring 00:00:00 00:00:00 509 Method i 2022-10-18 2022-10-18 Outpatient BAMBI, [facility] [id number] Spring 00:00:00 00:00:00 RAFIK 694 Method i 2022-10-15 2022-10-15 Outpatient DEL CID, [facility] [id number] Spring 00:00:00 00:00:00 DAVE 693 Method i 2022-09-27 2022-10-11 Inpatient BAYRON, [facility] 019 [id number] Spring 00:00:00 00:00:00 DARA 859 Method i 2022-10-082022-10-08 Inpatient DIVATIA, [facility] [id number] Spring 00:00:00 00:00:00 DARIN 081 Method i 2022-07-16 2022-09-27 Inpatient SAHARIA, [facility] 500 [id number] Spring 00:00:00 00:00:00 PEDRO 884 Method i 2022-07-02 2022-07-02 Outpatient SFA SFA [id number] Robby 14:37:57 14:37:57 86604 [facility] 2022-06-15 2022-06-26 Inpatient TING [facility] 019 [id number] Spring 00:00:00 00:00:00 PIERSON, 407 Method i BAYLEE 2022-03-26 2022-06-15 Inpatient YORK, [facility] 064 [id number] Spring 00:00:00 00:00:00 HERIBERTO 401 Method i 2022-02-17 2022-02-23 Inpatient DINAKAR, [facility] 710 [id number] Spring 00:00:00 00:00:00 PIERCE 147 Method i 2022-02-09 2022-02-09 [facility] [id number] Univers 15:00:00 15:00:00 [facility] 2022-02-09 2022-02-09 Outpatient [facility] [id number] Univers 15:00:00 15:00:00 [facility] 2022-02-08 2022-02-08 Orders Doctor KIRIT 1.2.840.114 [id number] Univers 00:00:00 00:00:00 Only Unassigned, MICHAEL 350.1.13.10 ity of [place] [facility] 4.2.7.2.686 Brent as [phone] [address] 2022-01-30 2022-01-30 Telephone Dashawn [facility] 1.2.840.114 [id number] Univers 00:00:00 00:00:00 [facility] 350.1.13.10 it y of Ricki PORRAS 4.2.7.2.686 Brent as VAMSI?BLEA [phone] [place] [address] MEDICAL OFFICE BUILDING 2022-01-23 2022-01-23 Lab [facility] [id number] [facility] 00:00:00 00:00:00 [facility] 2022-01-10 2022-01-10 Outpatient GALATI, [facility] [id number] [address] [place] [address] 00:00:00 00:00:00 CALOS [address] 2022-01-10 2022-01-[address] [facility], [facility] [id number] [address] [place] [address] 00:00:00 00:00:00 CALOS [address] 2021-11-30 2021-11-30 (TEL) STLMLC STLC [id number] Co mmon 00:00:00 00:00:00 [facility] 2021-11-30 2021-11-30 (TEL) [facility] [id number] Co mmon 00:00:00 00:00:00 [facility] 2021-11-16 2021-11-16 [facility] 1.2.937.673 [id number] Univers 13:30:00 14:32:33 Visit Libby PORRAS 350.1.13.10 i ty of [place] 4.2.7.2.686 Kalyani SKINNER [phone] N[place] dical [place] [address] [address] [facility] 2021-11-16 2021-11-16 Outpatient Christiana LEVY [facility] [id number] Univers 13:30:00 14:32:33 LIBBY [facility] 2021-11-16 2021-11-16 Outpatient Christiana LEVY [facility] [id number] Univers 13:30:00 13:30:00 LIBBY jessica [facility] 2021-11-16 2021-11-16 Outpatient Christiana LEVY [facility] [id number] Univers 13:30:00 13:30:00 LIBBY [facility] 2021-11-10 2021-11-10 Office [facility] 1.2.840.114 [id number] Univers 16:30:00 16:30:00 Visit Sally PORRAS 350.1.13.10 i ty [place].7.2.[place] PROF[place] [phone] N[place] dical NAL 098 [facility] 2021-11-10 2021-11-10 Outpatient Christiana CEASAR [facility] [id number] Univers 16:30:00 13:58:19 [facility] 2021-10-27 2021-11-04 Inpatient TING [facility] [id number] Spring 00:00:00 00:00:00 Ava PIERSON i [facility] 2021-10-16 2021-10-16 (HOSP F/U) [facility] [id number] Common 00:00:00 00:00:00 Hospital Spiri t Follow Up - [facility] 2021-10-13 2021-10-13 (TEL) [facility] [id number] Co mmon 00:00:00 00:00:00 Spirit - [facility] 2021-10-03 2021-10-03 [facility] [id number] [facility] 00:00:00 00:00:00 Savannahgricelda [facility] 2021-10-02 2021-10-02 Outpatient [facility] [id number] Univers 15:30:00 16:50:13 [facility] 2021-10-02 2021-10-02 Outpatient R [facility] [id number] Univers 15:30:00 15:30:00 [facility] 2021-09-27 2021-09-27 Outpatient R CAM [facility] [id number] Univers 13:45:00 15:38:26 LIBBY [facility] 2021-09-27 2021-09-27 Office [facility] 1.2.293.533 [id number] Univers 13:45:00 15:38:26 Visit Libby PORRAS 350.1.13.10 i [place].2.[place] [phone] Nj dical NAL 134 [facility] 2021-09-27 2021-09-27 Out[facility] [id number] Univers 13:45:00 15:38:26 LIBBY ity of [facility] 2021-09-27 2021-09-27 Orders Doctor KIRIT 1.2.840.114 [id number] Univers 00:00:00 00:00:00 Only Unassigned, MICHAEL 350.1.13.10 ity of [place] [facility] 4.2.7.2.686 Brent as [phone] [address] 2021-09-25 2021-09-25 OFFICE [facility] [id number] Co mmon 00:00:00 00:00:00 VISIT Gilberto CARDENAS PT - CHI LEVEL 4 [facility] 2021-09-01 2021-09-16 Inpatient ER [facility] Gastro [id number] SLE 22:15:00 12:13:00 KENDY 2021-09-01 2021-09-16 Hospital ER Garrettheydi Dawna [facility] [id number] [facility] 22:15:00 12:13:00 [facility] Nia Mathew 2021-09-04 2021-09-04 (TEL) [facility] [id number] Co mmon 00:00:00 00:00:00 Spirit - [facility] 2021-09-01 2021-09-01 Telephone Kianareal, 1.2.840.1 [id number] Methodmaverick 00:00:00 00:00:00 [place]n 09653.1.1 992 [facility] 3.430.2.7 Hospit a .3.081904 l .8 2021-09-01 2021-09-01 Documentat Silvio [facility] [id number] 00:00[facility]00 00:00:00 ion [facility] 2021-08-30 2021-08-31 Emergency [facility], [facility] 064 [id number] [id number] Spring 00:00:00 00:00:00 MOISES Banda [facility] 2021-08-30 2021-08-30 Travel 1.2.840.1 1.2.727.473 9079 [id number] Methodi 00:00:00 00:00:[address] 3.430.2.7 0.2.7.3.698 Ho spita .3.583499 084.8 l .8 2021-08-29 2021-08-29 Outpatient Christiana LEVY [facility] [id number] [facility] 13:00:00 13:00:00 LIBBY tatum [facility] 2021-08-29 2021-08-29 Outpatient JOSE, [facility] [id number] Spring 00:00:00 00:00:00 CALOS [facility]em [facility] 2021-08-29 2021-08-29 Travel 1.2.840.1 1.2.270.347 5410 [id number] Methodi 00:00:00 00:00:[address] 3.430.2.7 0.2.7.3.698 Ho spita .3.490917 084.8 l .8 2021-08-25 2021-08-25 Travel 1.2.840.1 1.2.184.231 4926 330609 Methodi 00:00:00 00:00:[address] 3.430.2.7 0.2.7.3.698 Ho spita .3.579684 084.8 l .8 2021-08-17 2021-08-25 [facility] JENNIFER GHOSH 1.2.840.1 [id number] Spring 00:00:00 00:00:00 Encounter 03320.1.1 [address] 3.[address].2.7 [address] .3.803090 .8 2021-08-24 2021-08-24 Surgery Tomy, 1.2.840.1 [id number] 59924 Methodi 09:00:00 10:25:[address] 3.430.2.7 Hospit a .3.986453 l .8 2021-08-24 2021-08-24 Documentat Delcano, 1.2.840.1 [id number] 21 [id number] Methodi 00:00:00 00:00:00 lupillo [place] 70250.1.[address] Matthew 3.430.2.7 Hospit a .3.226590 l .8 2021-08-23 2021-08-23 Documentat Delcano, 1.2.840.1 [id number] 21 [id number] Methodi 00:00:00 00:00:00 lupillo [place] [address]394.[address] Matthew 3.430.2.7 Hospit a .3.264345 l .8 2021-08-21 2021-08-21 Social Jaimes, 1.2.840.1 [id number] 599 [id number] Methodi 12:37:39 13:37:39 Work Kirit 65651.1.[address] 3.430.2.7 Hospit a .3.802952 l .8 2021-08-21 2021-08-21 Documentat [facility], 1.2.840.1 [id number] Methodi 00:00:00 00:00:00 lupillo [place] 32823.1.[address] Matthew 3.430.2.7 Hospit a .3.631404 l .8 2021-08-21 2021-08-21 Telephone Pops, 1.2.840.1 [id number] Methodi 00:00:00 00:00:[address] 3.430.2.7 Hospit a .3.493061 l .8 2021-08-18 2021-08-18 Travel 1.2.840.1 1.2.917.681 9907 147632 Methodi 00:00:00 00:00:[address] 3.430.2.7 0.2.7.3.698 Ho spita .3.841127 084.8 l .8 2021-08-10 2021-08-11 Emergency Adali, 1.2.840.1 [id number] 2 [id number] Methodi 20:25:00 01:30:[address] Rylee 3.430.2.7 Ho spita .3.476802 l .8 2021-08-10 2021-08-10 Travel 1.2.840.1 1.2.081.558 6931 838804 Methodi 00:00:00 00:00:[address] 3.430.2.7 0.2.7.3.698 Ho spita .3.735954 084.8 l .8 2021-07-28 2021-07-28 (TEL) [facility] STLC [id number] Co mmon 00:00:00 00:00:00 [facility] 2021-07-25 2021-07-25 Telephone Stephanie, 1.2.840.1 [id number] 875 [id number] Methodi 00:00:00 00:00:[address] 3.430.2.7 Hospit a .3.499759 l .8 2021-07-24 2021-07-24 Telephone Pops, 1.2.840.1 [id number] 2100 670812 Methodi 00:00:00 00:00:[address] 3.430.2.7 Hospit a .3.050082 l .8 2021-07-12 2021-07-12 (TEL) [facility] STLC [id number] Co mmon 00:00:00 00:00:00 [facility] 2021-06-29 2021-06-29 Travel 1.2.840.1 1.2.570.970 2439 079000 Methodi 00:00:00 00:00:[address] 3.430.2.7 0.2.7.3.698 Ho spita .3.315270 084.8 l .8 2021-06-28 2021-06-28 [place] [address] [id number] 37 Spring 00:00:00 00:00:00 ROMERO [address] 2021-06-22 2021-06-22 Behavioral John, 1.2.840.1 [id number] 856 [id number] Methodi 00:00:00 00:00:00 Health Kaleb 40582.1.[address] Johnny 3.430.2.7 Hospit a .3.316742 l .8 2021-06-18 2021-06-21 [facility], 1.2.840.1 [id number] Spring 00:00:00 00:00:00 Encounter [facility] 11279.1.1 [address] 3.[address].2.7 [address] .3.744319 .8 2021-06-18 2021-06-18 Travel 1.2.840.1 1.2.255.899 1071 682268 Methodi 00:00:00 00:00:[address] 3.430.2.7 0.2.7.3.698 Ho spita .3.764356 084.8 l .8 2021-06-16 2021-06-16 [facility], 1.2.840.5 [id number] 21 [id number] Methodi 00:00:00 00:00:00 Only Eusebia E 29878.1.[address] 3.430.2.7 Hospit a .3.986841 l .8 2021-06-08 2021-06-08 Clinical 1.2.840.1 [id number] 96369 40866 Methodi 12:04:06 13:04:[address] 3.430.2.7 Hospit a .3.530313 l .8 2021-06-05 2021-06-05 Telephone John, 1.2.840.1 [id number] 2099 073102 Methodi 00:00:00 00:00:[address] Johnny 3.430.2.7 Hospit a .3.398978 l .8 2021-05-31 2021-06-02 [facility], 1.2.840.1 [id number] Spring 00:00:00 00:00:00 Encounter HERIBERTO 15113.1.1 [address] .3.333949 .8 2021-05-31 2021-05-31 Travel 1.2.840.1 1.2.664.181 2606 172191 Methodi 00:00:00 00:00:[address] 3.430.2.7 0.2.7.3.698 Ho spita .3.882626 084.8 l .8 2021-05-24 2021-05-27 [facility] 012 [id number] 53 Spring 00:00:00 00:00:00 Encounter [facility] [address] 2021-05-24 2021-05-24 Travel 1.2.840.1 1.2.283.855 0439 600545 Methodi 00:00:00 00:00:[address] 3.430.2.7 0.2.7.3.698 Ho spita .3.048799 084.8 l .8 2021-05-23 2021-05-23 (TEL) STLMLC STLMLC [id number] Co mmon 00:00:00 00:00:00 [facility] 2021-05-19 2021-05-19 (TEL) STLMLC STLMLC [id number] Co mmon 00:00:00 00:00:00 [facility] 2021-05-01 2021-05-01 (TEL) STLMLC STLMLC [id number] Co mmon 00:00:00 00:00:00 [facility] 2021-04-26 2021-04-26 (TEL) STLMLC STLMLC [id number] Co mmon 00:00:00 00:00:00 [facility] 2021-04-26 2021-04-26 OFFICE STLMLC STLMLC [id number] Co mmon 00:00:00 00:00:00 [facility] - CHI LEVEL 4 [facility] 2021-04-26 2021-04-26 SUB ANNUAL STLMLC STLMLC [id number] Common 00:00:00 00:00:00 MCR [facility] WELLNESS - CHI VISIT [facility] 2021-04-21 2021-04-21 (TEL) STLMLC STLMLC [id number] Co mmon 00:00:00 00:00:00 [facility] 2021-01-13 2021-01-13 (TEL) STLMLC STLMLC [id number] Co mmon 00:00:00 00:00:00 [facility] 2020-12-13 2020-12-13 (TEL) STLMLC STLMLC [id number] Co mmon 00:00:00 00:00:00 [facility] 2020-11-28 2020-11-28 Patient [place], 1.2.840.1 [id number] Methodi 00:00:00 00:00:00 Outreach [facility] 04200.1.[address] 3.430.2.7 Hospit a .3.446498 l .8 2020-11-25 2020-11-25 Patient [place], 1.2.840.1 [id number] Methodi 00:00:00 00:00:00 Outreach [facility]ia 74266.1.[address] 3.430.2.7 Hospit a .3.162507 l .8 2020-11-24 2020-11-24 Patient [place], 1.2.840.1 [id number] Methodi 00:00:00 00:00:00 Outreach Bia 07695.1.[address] 3.430.2.7 Hospit a .3.887948 l .8 2020-11-22 2020-11-23 Emergency Wild Kovacs 1.2.840. 1 [id number] Methodi 17:29:00 16:26:00 Baylee Girard [address]58.1.[address] 3.430.2.7 Hospit a .3.202210 l .8 2020-11-22 2020-11-22 Travel 1.2.840.1 1.2.485.684 [id number] Methodi 00:00:00 00:00:[address] 3.430.2.7 0.2.7.3.698 Ho [facility] .3.772892 084.8 l .8 2020-11-17 2020-11-17 Outpatient STLMLC STLMLC [id number] Common 00:00:00 00:00:00 [facility] 2020-11-02 2020[facility]11-02 [id number] Methodi 16:45:00 23:59:00 Calos Lewis 95739.1.[address] 3.430.2.7 Hospit a .3.549944 l .8 2020-11-02 2020-11-02 Lab Jose 1.2.840.1 [id number] 7273 Methodi 16:00:31 16:05:31 Calos Feng 71351.1.[address] 3.430.2.7 Hospit a .3.544675 l .8 2020-11-02 2020-11-02 Travel 1.2.840.1 1.2.468.975 2499 [id number] Methodi 00:00:00 00:00:[address] 3.430.2.7 0.2.7.3.698 Ho spita .3.096370 084.8 l .8 2020-10-26 2020-10-[address] [facility], 1.2.840.1 [id number] Methodi 12:51:36 23:59:00 Vincenzo Marion 27515.1.[address] 3.430.2.7 Hospit a .3.856681 l .8 2020-10-26 2020-10-[address] [facility], 1.2.840.1 [id number] Methodi 08:10:06 12:50:00 Encounter Cliff Marion 13981.1.[address] 3.430.2.7 Hospit a .3.152166 l .8 2020-10-26 2020-10-26 Travel 1.2.840.1 1.2.152.664 [id number] Methodi 00:00:00 00:00:[address] 3.430.2.7 0.2.7.3.698 Ho spita .3.896223 084.8 l .8 2020-10-23 2020-10-24 [facility] 1.2.840.1 [id number] Methodi 17:57:00 14:46:00 Encounter Heriberto York 64991.1.[address] [facility] Baylee 3.430.2.7 [facility] .3.585322 l .8 2020-10-13 2020-10-13 Travel 1.2.840.1 1.2.820.490 8054 [id number] Methodi 00:00:00 00:00:[address] 3.430.2.7 0.2.7.3.698 Ho spita .3.797316 084.8 l .8 2020-10-12 2020-10-12 Transcribe Mildred 1.2.840.1 [id number] Methodi 00:00:00 00:00:00 Orders Cliff Chu. 19919.1.[address] 3.430.2.7 Hospit a .3.423142 l .8 2020-10-11 2020-10-11 Outpatient STLMLC STLMLC [id number] Common 00:00:00 00:00:00 [facility] 2020-10-09 2020-10-09 Emergency [place], 1.2.840.1 [id number] Methodi 16:28:00 19:29:[address] Gus 3.430.2.7 Hospit a .3.381443 l .8 2020-10-03 2020-10-03 Outpatient STLMLC STLMLC [id number] Common 00:00:00 00:00:00 [facility] 2020-09-19 2020-09-21 [facility] Robby Gabriel 1.2.840.1 [id number] Methodi 16:55:00 14:27:00 Encounter Chela Heriberto 60061.1.[address] Jennifer Ghosh 3.430.2.7 Hos lis .3.498216 l .8 2020-09-15 2020-09-15 Cem Garcia 1.2.840.1 [id number] Methodi 00:00:00 00:00:00 Sheryl Feng 27308.1.[address] 3.430.2.7 Hospit a .3.937371 l .8 2020-09-14 2020-09-14 Outpatient STLMLC STLMLC [id number] Common 00:00:00 00:00:00 [facility] 2020-08-31 2020-09-02 Inpatient DINAKAR, [facility] [id number] Spring 00:00:00 00:00:00 PIERCE 426 Method i 2020-08-10 2020-08-13 Inpatient [facility] 012 [id number] Spring 00:00:00 00:00:00 HERIBERTO 301 Method i 2020-08-09 2020-08-09 Emergency NUSZEN, [facility] 064 [id number] Spring 00:00:00 00:00:00 ROMERO 618 Method i 2020-08-08 2020-08-08 Emergency WEIBEL, [facility] 064 [id number] Spring 00:00:00 00:00:00 NOBLE 028 Method i 2020-07-27 2020-07-27 Outpatient STLMLC STLMLC [id number] Common 00:00:00 00:00:00 [facility] 2020-07-18 2020-07-18 Outpatient [facility] [id number] Spring 00:00:00 00:00:[address] 2020-07-04 2020-07-07 Inpatient JENNIFER GHOSH [facility] 064 [id number] Spring 00:00:00 00:00:[address] 2020-06-28 2020-06-28 Outpatient STLMLC STLMLC [id number] Common 00:00:00 00:00:00 [facility] 2020-06-20 2020-06-20 Outpatient STLMLC STLMLC [id number] Common 00:00:00 00:00:00 [facility] 2020-05-30 2020-06-03 Inpatient JENNIFER GHOSH [facility] 064 [id number] Spring 00:00:00 00:00:[address] 2020-05-27 2020-05-27 Outpatient YALAMANCHIL [facility] [id number] Spring 00:00:00 00:00:00 YIFAN Torres [address] 2020-05-20 2020-05-20 Outpatient STLMLC STLMLC [id number] Common 00:00:00 00:00:00 [facility] 2020-05-13 2020-05-17 Inpatient MCCARTAN, [facility] 064 [id number] Spring 00:00:00 00:00:[address] MER[facility] [address] 2020-04-13 2020-04-21 Inpatient YOJANA, [facility] 064 [id number] Spring 00:00:00 00:00:00 JUNO [address] 2020-04-13 2020-04-13 [facility] [id number] Common 16:02:00 16:02:[address] [facility] 2020-04-13 2020-04-13 [facility] [id number] Common 09:33:00 09:33:[address] [facility] 2020-04-05 2020-04-05 [facility] [id number] Common 09:10:00 09:10:[address] [facility] 2020-04-04 2020-04-04 [facility] [id number] Common 10:58:00 10:58:[address] [facility] 2020-04-04 2020-04-04 [facility] [id number] Common 10:00:00 10:00:[address] [facility] 2020-03-17 2020-03-19 Inpatient TING [facility] 064 [id number] Spring 00:00:00 00:00:00 DANGELO, 082 Method i BAYLEE 2020-03-16 2020-03-16 [facility] [id number] Common 11:12:00 11:12:[address] [facility] 2020-03-14 2020-03-14 Outpatient JACQUELIN [facility] [id number] Spring 00:00:00 00:00:00 AHMED 426 Method i 2020-03-10 2020-03-10 [facility] [id number] Common 13:18:00 13:18:[address] [facility] 2020-03-07 2020-03-07 [facility] [id number] Common 16:07:00 16:07:[address] [facility] 2020-03-04 2020-03-04 [facility] [id number] Common 11:00:00 11:00:[address] [facility] 2020-03-04 2020-03-04 [facility] 30 [id number] Common 11:00:00 11:00:[address] [facility] 2020-03-04 2020-03-04 Outpatient MEAGAN, [facility] [id number] Spring 00:00:00 00:00:00 RA [address] 2020-02-18 2020-02-21 Inpatient YORK, [facility] 064 [id number] Spring 00:00:00 00:00:00 HERIBERTO [address] 2020-01-18 2020-01-20 Inpatient ROLANDO, [facility] 500 [id number] Spring 00:00:00 00:00:00 PIERCE 881 Method i 2020-01-07 2020-01-11 Inpatient CHELA, [facility] 064 [id number] Spring 00:00:00 00:00:00 HERIBERTO 087 Method i 2019-12-29 2019-12-29 [facility] [id number] [facility] 07:03:00 07:03:00 t Droid[place] [employer] [facility] 2019-12-23 2019-12-25 Inpatient TING [facility] 064 [id number] Spring 00:00:00 00:00:00 DANGELO 540 Method i BAYLEE 2019-12-23 2019-12-23 Outpatient JACQUELIN, [facility] [id number] Spring 00:00:00 00:00:00 AHMED 960 Method i 2019-12-22 2019-12-22 [facility] 1.2.840.114 [id number] Univers 14:08:03 14:56:41 Visit [facility] 350.1.13.10 it y of Surgical 4.2.7.2.686 Brent as Specialti [phone] Nj dical es 198 [facility] 2019-12-22 2019-12-22 [facility] 1.2.840.114 [id number] 14:08:03 14:56:41 Visit [facility] 350.1.13.10 Surgical 4.2.7.2.686 Specialti [phone] es [address] [place] [address] 2019-12-22 2019-12-22 [facility] [id number] Univers 14:15:00 14:15:00 [facility] 2019-12-15 2019-12-15 [facility] 1.2.840.114 [id number] Univers 14:57:28 15:12:28 Visit [facility] 350.1.13.10 it y of Surgical 4.2.7.2.686 Brent as Specialti [phone] Me dical es 198 [facility] 2019-12-15 2019-12-15 [facility] [id number] Univers 15:00:00 15:00:00 [facility] 2019-12-08 2019-12-08 [facility] 1.2.840.114 [id number] Univers 15:45:23 16:15:13 Visit [facility] 350.1.13.10 it y of Surgical 4.2.7.2.686 Brent as Specialti [phone] Nj dical es 198 [facility] 2019-12-08 2019-12-08 [facility] [id number] Univers 16:00:00 16:00:00 [facility] 2019-12-08 2019-12-08 [facility] [id number] Univers 13:45:00 13:45:00 [facility] 2019-10-30 2019-10-30 Out[facility] [id number] Univers 10:15:00 10:15:00 [facility] 2019-10-26 2019-10-26 Orders Doctor KIRIT 1.2.840.114 [id number] Univers 00:00:00 00:00:00 Only Unassigned, MICHAEL 350.1.13.10 ity of [place] [facility] 4.2.7.2.686 Brent as [id number] [address] 2019-10-22 2019-10-22 Outpatient [facility] [id number] Univers 16:15:00 16:15:00 [facility] 2019-10-22 2019-10-22 [facility] 1.2.840.114 [id number] Univers 10:06:57 10:56:32 Visit [facility] 350.1.13.10 it y of Surgical 4.2.7.2.686 Brent as Specialti [id number] Nj dical es 198 [facility] 2019-10-22 2019-10-22 Outpatient [facility] [id number] Univers 10:15:00 10:15:00 [facility] 2019-10-12 2019-10-15 [facility] [id number] Spring 00:00:00 00:00:00 HERIBERTO 906 Method i 2019-09-24 2019-09-24 [facility] 1.2.840.114 [id number] Univers 11:21:26 11:41:20 Visit [facility] 350.1.13.10 it y of Surgical 4.2.7.2.686 Brent as Specialti [phone] Nj dical es [address] [place] 2019-09-24 2019-09-24 Outpatient R [facility] [id number] Univers 11:15:00 11:41:20 L[facility] 2019-09-01 2019-09-03 Inpatient YORK, [facility] [id number] Spring 00:00:00 00:00:00 HERIBERTO 637 Method i 2019-07-20 2019-07-20 Out[facility] [id number] Common 14:02:00 14:02:[address] [facility] 2019-07-16 2019-07-16 Out[facility] [id number] Common 13:15:00 13:15:[address] [facility] 2019-06-16 2019-06-18 Inpatient CHELA, [facility] [id number] Spring 00:00:00 00:00:00 HERIBERTO 382 Method i 2019-05-07 2019-05-08 Outpatient DARCY, UMAR [facility] [id number] Spring 00:00:00 00:00:00 691 Method i 2019-04-23 2019-04-23 Outpatient GALATI, [facility] [id number] Spring 00:00:00 00:00:00 CALOS 089 Method i 2019-04-23 2019-04-23 Outpatient JACQUELIN, [facility] [id number] Spring 00:00:00 00:00:00 AHMED 724 Method i 2019-04-15 2019-04-15 Out[facility] [id number] Common 14:19:00 14:19:[address] [facility] 2019-04-09 2019-04-09 Out[facility] [id number] Common 14:00:00 14:00:[address] [facility] 2019-03-10 2019-03-10 Transition Bennie Ma 1.2.840.114 [id number] Univers 00:00:00 00:00:00 of Care Anabell Almaguer 350.1.13.10 it y of [place] 4.2.7.2.686 [place] [id number] [facility] [address] 2019-03-06 2019-03-09 [facility] Akanksha Jensen 1.2.840. 114 [id number] Univers 00:42:03 16:11:00 Encounter Indra Motta 350.1.13.1 0 ity of [facility] 4.2.7.2.686 [place] [id number] [facility] [address] 2019-01-21 2019-01-21 Emergency X SANCHEZ, [facility] ERT [id number] Univers 19:21:56 22:21:00 MARTELL ity [facility] 2018-09-09 2018-09-09 [facility] [id number] Common 14:45:00 14:45:[address] [facility] 2018-04-15 2018-04-15 [facility] [id number] Common 12:02:00 12:02:[address] [facility] 2018-02-19 2018-02-19 Out[facility] [id number] Common 15:08:00 15:08:[address] [facility] 2018-01-24 2018-01-24 [facility] [id number] Common 11:15:00 11:15:[address] [facility] Results Test Description Test Time Test Comments Results Result Comments Source Influenza virus A and B and 2023-01-28 18:44:34 Test Item Value Reference Range Interpretation Comme nts SARS-CoV-2 (COVID-19) RNA [Presence] in Respiratory specimen by Not detected GUSTAVO with probe detection (test code = 67624-4) Whether patient resides in a congregate care setting (test code = N o 37488-7) Date and time of symptom onset (test code = 77105-9) Unknown Whether the patient was hospitalized for condition of interest No (test code = 14611-5) Whether the patient was admitted to intensive care unit (ICU) for N o condition of interest (test code = 16698-3) 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 (test code = No 03666-9) Whether the patient has symptoms related to condition of interest N o (test code = 88982-7) status (test code = 01273-3) No PHI VOODOO GMKKLASL-GqK-2 (COVID-19) RNA [Presence] in Respiratory specimen by GUSTAVO with probe [id number] 19:26:29 Test Item Value Reference Range Interpretation Comments SARS-CoV-2 (COVID-19) RNA Not detected [Presence] in Respiratory specimen by GUSTAVO with probe detection (test code = 28246-8) 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 employed in a Unknown healthcare setting (test code = 34460-2) Whether the patient has symptoms Unknown related to condition of interest (test code = 25392-9) Whether the patient was Unknown hospitalized for condition of interest (test code = 38562-6) Whether the patient was admitted Unknown to intensive care unit (ICU) for condition of interest (test code = 39649-6) Whether patient resides in a Unknown congregate care setting (test code = 48843-7) status (test code = Unknown 50587-4) Date and time of symptom onset Unknown (test code = 39296-3) PHI CORLEY XQGGCTAS-RmE-1 (COVID-19) RNA [Presence] in Respiratory specimen by GUSTAVO with probe [id number] 18:27:11 Test Item Value Reference Range Interpretation Comments SARS-CoV-2 (COVID-19) RNA Not detected [Presence] in Respiratory specimen by GUSTAVO with probe detection (test code = 66052-1) 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 employed in a Unknown healthcare setting (test code = 53184-2) Whether the patient has symptoms Unknown related to condition of interest (test code = 49983-1) Whether the patient was Unknown hospitalized for condition of interest (test code = 55650-2) Whether the patient was admitted Unknown to intensive care unit (ICU) for condition of interest (test code = 12323-7) Whether patient resides in a Unknown congregate care setting (test code = 97640-8) status (test code = Unknown 66057-9) Date and time of symptom onset Unknown (test code = 07105-3) PHI MICHAELSARS-CoV-2 (COVID-19) RNA [Presence] in Respiratory specimen by GUSTAVO with probe [id number] 02:07:43 Test Item Value Reference Range Interpretation Comments SARS-CoV-2 (COVID-19) RNA Not detected [Presence] in Respiratory specimen by GUSTAVO with probe detection (test code = 97694-0) 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 employed in a Unknown healthcare setting (test code = 87458-4) Whether the patient has symptoms Unknown related to condition of interest (test code = 97702-3) Whether the patient was Unknown hospitalized for condition of interest (test code = 69714-5) Whether the patient was admitted Unknown to intensive care unit (ICU) for condition of interest (test code = 00219-5) Whether patient resides in a Unknown congregate care setting (test code = 90911-8) status (test code = Unknown 20481-1) Date and time of symptom onset Unknown (test code = 17724-5) PHI MICHAELSARS-CoV-2 (COVID-19) RNA [Presence] in Respiratory specimen by GUSTAVO with probe yvmasbyhu8915-30-08 21:37:35 Test Item Value Reference Range Interpretation Comments SARS-CoV-2 (COVID-19) RNA Not detected [Presence] in Respiratory specimen by GUSTAVO with probe detection (test code = 43984-4) 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 employed in a Unknown healthcare setting (test code = 52722-0) Whether the patient has symptoms Unknown related to condition of interest (test code = 80604-1) Whether the patient was Unknown hospitalized for condition of interest (test code = 92996-9) Whether the patient was admitted Unknown to intensive care unit (ICU) for condition of interest (test code = 59639-9) Whether patient resides in a Unknown congregate care setting (test code = 60226-1) status (test code = Unknown 26713-3) Date and time of symptom onset Unknown (test code = 26522-5) PHI MICHAELSARS-CoV-2 (COVID-19) RNA [Presence] in Respiratory specimen by GUSTAVO with probe [id number] 05:52:15 Test Item Value Reference Range Interpretation Comments SARS-CoV-2 (COVID-19) RNA Not detected [Presence] in Respiratory specimen by GUSTAVO with probe detection (test code = 42110-9) 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 employed in a Unknown healthcare setting (test code = 51570-5) Whether the patient has symptoms Unknown related to condition of interest (test code = 01781-2) Whether the patient was Unknown hospitalized for condition of interest (test code = 54564-5) Whether the patient was admitted Unknown to intensive care unit (ICU) for condition of interest (test code = 49597-3) Whether patient resides in a Unknown congregate care setting (test code = 37477-1) status (test code = Unknown 25246-4) Date and time of symptom onset Unknown (test code = 20352-7) PHI MICHAELSARS-CoV-2 (COVID-19) RNA [Presence] in Respiratory specimen by GUSTAVO with probe lkgpeqqhx5866-86-75 05:19:43 Test Item Value Reference Range Interpretation Comments SARS-CoV-2 (COVID-19) RNA Not detected [Presence] in Respiratory specimen by GUSTAVO with probe detection (test code = 83890-6) 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 employed in a Unknown healthcare setting (test code = 41017-7) Whether the patient has symptoms Unknown related to condition of interest (test code = 24066-1) Whether the patient was Unknown hospitalized for condition of interest (test code = 97219-9) Whether the patient was admitted Unknown to intensive care unit (ICU) for condition of interest (test code = 84314-1) Whether patient resides in a Unknown congregate care setting (test code = 40537-1) status (test code = Unknown 08655-6) Date and time of symptom onset Unknown (test code = 13379-6) PHI CORLEY WACNCUZN-UnH-4 (COVID-19) RNA [Presence] in Respiratory specimen by GUSTAVO with probe ubnfurues4430-65-20 00:24:44 Test Item Value Reference Range Interpretation Comments SARS-CoV-2 (COVID-19) RNA Not detected [Presence] in Respiratory specimen by GUSTAVO with probe detection (test code = 96770-2) 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 employed in a Unknown healthcare setting (test code = 26511-7) Whether the patient has symptoms Unknown related to condition of interest (test code = 30351-4) Whether the patient was Unknown hospitalized for condition of interest (test code = 49565-4) Whether the patient was admitted Unknown to intensive care unit (ICU) for condition of interest (test code = 99700-8) Whether patient resides in a Unknown congregate care setting (test code = 74617-9) status (test code = Unknown 19731-3) Date and time of symptom onset Unknown (test code = 85011-3) PHI MICHAELSARS-CoV-2 (COVID-19) RNA [Presence] in Respiratory specimen by GUSTAVO with probe iyciymeis1053-55-65 07:50:50 Test Item Value Reference Range Interpretation Comments SARS-CoV-2 (COVID-19) RNA Not detected [Presence] in Respiratory specimen by GUSTAVO with probe detection (test code = 89120-1) 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 employed in a Unknown healthcare setting (test code = 72724-6) Whether the patient has symptoms Unknown related to condition of interest (test code = 38860-7) Whether the patient was Unknown hospitalized for condition of interest (test code = 50140-4) Whether the patient was admitted Unknown to intensive care unit (ICU) for condition of interest (test code = 52983-7) Whether patient resides in a Unknown congregate care setting (test code = 42111-5) status (test code = Unknown 19532-1) Date and time of symptom onset Unknown (test code = 45670-1) PHI MICHAELSARS-CoV-2 (COVID-19) RNA [Presence] in Respiratory specimen by GUSTAVO with probe [id number] 19:18:03 Test Item Value Reference Range Interpretation Comments SARS-CoV-2 (COVID-19) RNA Not detected [Presence] in Respiratory specimen by GUSTAVO with probe detection (test code = 06782-3) 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 employed in a No healthcare setting (test code = 12606-5) Whether the patient has symptoms Yes related to condition of interest (test code = 06856-9) Whether the patient was No hospitalized for condition of interest (test code = 64391-4) Whether the patient was admitted No to intensive care unit (ICU) for condition of interest (test code = 29468-0) Whether patient resides in a No congregate care setting (test code = 97345-8) status (test code = No 60083-0) Date and time of symptom onset Unknown (test code = 90034-3) PHI MICHAELSARS-CoV-2 (COVID-19) RNA [Presence] in Respiratory specimen by GUSTAVO with probe [id number] 11:44:34 Test Item Value Reference Range Interpretation Comments SARS-CoV-2 (COVID-19) RNA Not detected [Presence] in Respiratory specimen by GUSTAVO with probe detection (test code = 66484-6) 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 employed in a Unknown healthcare setting (test code = 31433-7) Whether the patient has symptoms Unknown related to condition of interest (test code = 45701-2) Whether the patient was Unknown hospitalized for condition of interest (test code = 93380-4) Whether the patient was admitted Unknown to intensive care unit (ICU) for condition of interest (test code = 45580-2) Whether patient resides in a Unknown congregate care setting (test code = 20808-9) status (test code = Unknown 39712-4) Date and time of symptom onset Unknown (test code = 31918-6) PHI MICHAELSARS-CoV-2 (COVID-19) RNA [Presence] in Respiratory specimen by GUSTAVO with probe fsedebrle1845-78-13 05:03:29 Test Item Value Reference Range Interpretation Comments SARS-CoV-2 (COVID-19) RNA Not detected [Presence] in Respiratory specimen by GUSTAVO with probe detection (test code = 19339-2) 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 employed in a Unknown healthcare setting (test code = 01914-6) Whether the patient has symptoms Unknown related to condition of interest (test code = 29807-9) Whether the patient was Unknown hospitalized for condition of interest (test code = 82196-2) Whether the patient was admitted Unknown to intensive care unit (ICU) for condition of interest (test code = 14249-5) Whether patient resides in a Unknown congregate care setting (test code = 52303-7) status (test code = Unknown 81942-7) Date and time of symptom onset Unknown (test code = 04185-0) PHI MICHAELSARS-CoV-2 (COVID-19) RNA [Presence] in Respiratory specimen by GUSTAVO with probe ebspblvez2506-70-55 16:50:47 Test Item Value Reference Range Interpretation Comments SARS-CoV-2 (COVID-19) RNA Not detected [Presence] in Respiratory specimen by GUSTAVO with probe detection (test code = 68368-3) 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 employed in a Unknown healthcare setting (test code = 24871-1) Whether the patient has symptoms Unknown related to condition of interest (test code = 85117-6) Whether the patient was Unknown hospitalized for condition of interest (test code = 80607-0) Whether the patient was admitted Unknown to intensive care unit (ICU) for condition of interest (test code = 72475-5) Whether patient resides in a Unknown congregate care setting (test code = 46717-7) status (test code = Unknown 10317-2) Date and time of symptom onset Unknown (test code = 85109-9) PHI GONZALEZIST Evelynpatitis B surface abghhvo8021-24-69 23:01:06 Test Item Value Reference Range Interpretation Comments Hepatitis B surface Nonreactive Nonreactive antigen (test code = 5195-3) REJI (test code = REJI) Specimen is considered negative for HBsAg. Lab Interpretation (test Normal code = 83428-8) [facility] B core antibody, [id number] 23:01:06 Test Item Value Reference Range Interpretation Comments Hep B C IgM (test code = Nonreactive Nonreactive 80553-6) REJI (test code = REJI) Returned Telephone Equipment Appraiser ID - ADMIN Lab Interpretation (test Normal code = 29144-1) [facility] [facility], [id number] 23:01:06 Test Item Value Reference Range Interpretation Comments Hep A IgM (test code = Nonreactive Nonreactive 95229-9) REJI (test code = REJI) Returned Telephone Equipment Appraiser ID - ADMIN Lab Interpretation (test Normal code = 34639-2) [facility] [id number] 23:01:06 Test Item Value Reference Range Interpretation Comments Hepatitis C Ab (test code Nonreactive Nonreactive = 75377-1) REJI (test code = REJI) Returned Telephone Equipment Appraiser ID - ADMIN Lab Interpretation (test Normal code = 72586-3) [facility] [id number] 23:01:06 Test Item Value Reference Range Interpretation Comments Hepatitis B surface Nonreactive Nonreactive antigen (test code = 5195-3) REJI (test code = REJI) Specimen is considered negative for HBsAg. Lab Interpretation (test Normal code = 20506-2) [facility] [id number] 23:01:06 Test Item Value Reference Range Interpretation Comments Hep B C IgM (test code = Nonreactive Nonreactive 23903-7) REJI (test code = REJI) Returned Telephone Equipment Appraiser ID - ADMIN Lab Interpretation (test Normal code = 36897-8) [facility], [id number] 23:01:06 Test Item Value Reference Range Interpretation Comments Hep A IgM (test code = Nonreactive Nonreactive 47062-9) REJI (test code = REJI) Returned Telephone Equipment Appraiser ID - ADMIN Lab Interpretation (test Normal code = 05958-6) [facility] [id number] 23:01:06 Test Item Value Reference Range Interpretation Comments Hepatitis C Ab (test code Nonreactive Nonreactive = 40789-5) REJI (test code = REJI) Returned Telephone Equipment Appraiser ID - ADMIN Lab Interpretation (test Normal code = 83580-3) [facility] [id number] 23:01:06 Test Item Value Reference Range Interpretation Comments Hepatitis B surface Nonreactive Nonreactive antigen (test code = 5195-3) REJI (test code = REJI) Specimen is considered negative for HBsAg. Lab Interpretation (test Normal code = 24862-8) [facility], [id number] 23:01:06 Test Item Value Reference Range Interpretation Comments Hep B C IgM (test code = Nonreactive Nonreactive 21291-1) REJI (test code = REJI) Returned Telephone Equipment Appraiser ID - ADMIN Lab Interpretation (test Normal code = 70538-0) [facility], [id number] 23:01:06 Test Item Value Reference Range Interpretation Comments Hep A IgM (test code = Nonreactive Nonreactive 73672-2) REJI (test code = REJI) Returned Telephone Equipment Appraiser ID - ADMIN Lab Interpretation (test Normal code = 03597-5) [facility] [id number] 23:01:06 Test Item Value Reference Range Interpretation Comments Hepatitis C Ab (test code Nonreactive Nonreactive = 24740-7) REJI (test code = REJI) Returned Telephone Equipment Appraiser ID - ADMIN Lab Interpretation (test Normal code = 01946-8) [facility] surface [id number] 23:01:06 Test Item Value Reference Range Interpretation Comments Hepatitis B surface Nonreactive Nonreactive antigen (test code = 5195-3) REJI (test code = REJI) Specimen is considered negative for HBsAg. Lab Interpretation (test Normal code = 94072-9) [facility], [id number] 23:01:06 Test Item Value Reference Range Interpretation Comments Hep B C IgM (test code = Nonreactive Nonreactive 96227-9) REJI (test code = REJI) Returned Telephone Equipment Appraiser ID - ADMIN Lab Interpretation (test Normal code = 72747-3) [facility], [id number] 23:01:06 Test Item Value Reference Range Interpretation Comments Hep A IgM (test code = Nonreactive Nonreactive 59788-3) REJI (test code = REJI) Returned Telephone Equipment Appraiser ID - ADMIN Lab Interpretation (test Normal code = 06969-0) [facility] [id number] 23:01:06 Test Item Value Reference Range Interpretation Comments Hepatitis C Ab (test code Nonreactive Nonreactive = 60740-4) REJI (test code = REJI) Returned Telephone Equipment Appraiser ID - ADMIN Lab Interpretation (test Normal code = 61092-6) [facility] [id number] 23:01:06 Test Item Value Reference Range Interpretation Comments Hepatitis B surface Nonreactive Nonreactive antigen (test code = 5195-3) REJI (test code = REJI) Specimen is considered negative for HBsAg. Lab Interpretation (test Normal code = 47959-4) [facility], [id number] 23:01:06 Test Item Value Reference Range Interpretation Comments Hep B C IgM (test code = Nonreactive Nonreactive 65084-7) REJI (test code = REJI) Returned Telephone Equipment Appraiser ID - ADMIN Lab Interpretation (test Normal code = 07086-8) [facility], [id number] 23:01:06 Test Item Value Reference Range Interpretation Comments Hep A IgM (test code = Nonreactive Nonreactive 50436-8) REJI (test code = REJI) Returned Telephone Equipment Appraiser ID - ADMIN Lab Interpretation (test Normal code = 62238-9) [facility] C [id number] 23:01:06 Test Item Value Reference Range Interpretation Comments Hepatitis C Ab (test code Nonreactive Nonreactive = 43153-7) REJI (test code = REJI) Returned Telephone Equipment Appraiser ID - ADMIN Lab Interpretation (test Normal code = 36304-4) [facility] B SURFACE [id number] 23:01:06 Test Item Value Reference Range Interpretation Comments HEPATITIS B SURFACE ANTIGEN (2) Nonreactive Nonreactive (BEAKER) (test code = 2585) Specimen is considered negative for HBsAg.HEPATITIS B CORE ANTIBODY, IGM 2022-01-23 23:01:06 Test Item Value Reference Range Interpretation Comments HEPATITIS B CORE IGM ANTIBODY Nonreactive Nonreactive (BEAKER) (test code = 645) Returned Telephone Equipment Appraiser ID - ADMINHEPATITIS C [id number] 23:01:06 Test Item Value Reference Range Interpretation Comments HEPATITIS C ANTIBODY (BEAKER) Nonreactive Nonreactive (test code = 367) Returned Telephone Equipment Appraiser ID - ADMINHEBAPT[facility]ISON[facility]ILLETIS A ANTIBODY, [id number] 23:01:06 Test Item Value Reference Range Interpretation Comments HEPATITIS A IGM ANTIBODY (BEAKER) Nonreactive Nonreactive (test code = 498) Returned Telephone Equipment Appraiser ID - IRMORHUJK-OzW-2 (COVID-19) RNA [Presence] in Respiratory specimen by GUSTAVO with probe vjqdafvee8595-59-29 04:55:57 Test Item Value Reference Range Interpretation Comments SARS-CoV-2 (COVID-19) RNA Not detected [Presence] in Respiratory specimen by GUSTAVO with probe detection (test code = 68082-6) 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 employed in a Unknown healthcare setting (test code = 81019-6) Whether the patient has symptoms Unknown related to condition of interest (test code = 55737-5) Whether the patient was Unknown hospitalized for condition of interest (test code = 14800-0) Whether the patient was admitted Unknown to intensive care unit (ICU) for condition of interest (test code = 06965-2) Whether patient resides in a Unknown congregate care setting (test code = 13000-1) status (test code = Unknown 77931-8) Date and time of symptom onset Unknown (test code = 17764-3) PHI DEANRS-CoV-2 (COVID-19) RNA [Presence] in Respiratory specimen by GUSTAVO with probe pzvdwijgk2884-07-11 01:48:29 Test Item Value Reference Range Interpretation Comments SARS-CoV-2 (COVID-19) RNA Not detected [Presence] in Respiratory specimen by GUSTAVO with probe detection (test code = 08659-8) 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 employed in a Unknown healthcare setting (test code = 07534-9) Whether the patient has symptoms Unknown related to condition of interest (test code = 65863-6) Whether the patient was Unknown hospitalized for condition of interest (test code = 56448-1) Whether the patient was admitted Unknown to intensive care unit (ICU) for condition of interest (test code = 67429-3) Whether patient resides in a Unknown congregate care setting (test code = 28970-4) status (test code = Unknown 74838-6) Date and time of symptom onset Unknown (test code = 26273-9) PHI MICHAELCT, [id number] 08:50:00Unlisted Reason for Exam - Click Yes and Enter Reason Below->YesUnlisted Reason for Exam->diarrhea. abdominal pain. C dif colitis.Is this for enterography?->NoWill this procedure require oral contrast?->No [facility] : 1960 Sex: [...] MDReport Verified Date/Time: 09/15/2021 08:50:57 Basic Metabolic [id number] 07:34:36 Test Item Value Reference Range Interpretation Comments Sodium (test code = 138 meq/L 815-061 6451-2) Potassium (test code 3.7 meq/L 3.5-5.1 Specime n = 2823-3) slightly hemolyzed Chloride (test code = 105 meq/L 98-107 2074-0) CO2 (test code = 26 meq/L 22-29 2027-) BUN (test code = 10 mg/dL 7-21 3094-0) Creatinine (test code 0.72 mg/dL 0.57-1.25 Specim en = 2160-0) slightly hemolyzed Glucose (test code = 60 mg/dL 70-105 L 2345-7) Calcium (test code = 7.5 mg/dL 8.4-10.2 L 22180-4) EGFR (test code = 83 mL/min/1.73 [place] [address]-2) NOT ACCURATE CREATININE CLEARANCE IN PREDICTING GLOMERULAR FILTRATION RATE . ESTIMATED GFR I S NOT APPLICABLE FOR DIALYSIS PATIENTS. REJI (test code = REJI) Returned Telephone Equipment Appraiser ID - EOSpecimen moderately icteric Lab Interpretation Abnormal (test code = 86877-7) [facility] Metabolic [id number] 07:34:36 Test Item Value Reference Range Interpretation Comments Sodium (test code = 138 meq/L 686-014 9722-2) Potassium (test code 3.7 meq/L 3.5-5.1 Specime n = 2823-3) slightly hemolyzed Chloride (test code = 105 meq/L 98-107 2075-0) CO2 (test code = 26 meq/L 2028-04) BUN (test code = 10 mg/dL 7- 3094-0) Creatinine (test code 0.72 mg/dL 0.57-1.25 Specim en = 2160-0) slightly hemolyzed Glucose (test code = 60 mg/dL 70-105 L 2345-7) Calcium (test code = 7.5 mg/dL 8.4-10.2 L 17157-7) EGFR (test code = 83 mL/min/1.[place] [address]-7) NOT ACCURATE CREATININE CLEARANCE IN PREDICTING GLOMERULAR FILTRATION RATE . ESTIMATED GFR I S NOT APPLICABLE FOR DIALYSIS PATIENTS. REJI (test code = REJI) Returned Telephone Equipment Appraiser ID - EOSpecimen moderately icteric Lab Interpretation Abnormal (test code = 88157-3) [facility] Metabolic [id number] 07:34:36 Test Item Value Reference Range Interpretation Comments Sodium (test code = 138 meq/L 443-830 7126-2) Potassium (test code 3.7 meq/L 3.5-5.1 Specime n = 2823-3) slightly hemolyzed Chloride (test code = 105 meq/L 98-107 2075-0) CO2 (test code = 26 meq/L -29 2028-9) BUN (test code = 10 mg/dL 7-21 3094-0) Creatinine (test code 0.72 mg/dL 0.57-1.25 Specim en = 2160-0) slightly hemolyzed Glucose (test code = 60 mg/dL 70-105 L 2345-7) Calcium (test code = 7.5 mg/dL 8.4-10.2 L 34762-1) EGFR (test code = 83 mL/min/1.[place] [address]-7) NOT ACCURATE CREATININE CLEARANCE IN PREDICTING GLOMERULAR FILTRATION RATE . ESTIMATED GFR I S NOT APPLICABLE FOR DIALYSIS PATIENTS. REJI (test code = REJI) Returned Telephone Equipment Appraiser ID - EOSpecimen moderately icteric Lab Interpretation Abnormal (test code = 07763-2) [facility] [id number] 07:34:36 Test Item Value Reference Range Interpretation Comments SODIUM (BEAKER) 138 meq/L 136-145 (test code = 381) POTASSIUM (BEAKER) 3.7 meq/L 3.5-5.1 Specimen slightly (test code = 379) hemolyzed CHLORIDE (BEAKER) 105 meq/L 98-107 (test code = 382) CO2 (BEAKER) (test 26 meq/L code = 355) BLOOD UREA NITROGEN 10 mg/dL 7- (BEAKER) (test code = 354) CREATININE (BEAKER) 0.72 mg/dL 0.57-1.25 Specimen slightly (test code = 358) hemolyzed GLUCOSE RANDOM 60 mg/dL 70-105 L (BEAKER) (test code = 652) CALCIUM (BEAKER) 7.5 mg/dL 8.4-10.2 L (test code = 697) EGFR (BEAKER) (test 83 mL/min/1.73 ESTIMA ANDRESSA GFR IS code = 1092) sq m NOT ACCURATE CREATININE CLEARANCE IN PREDICTING GLOMERULAR FILTRATION RATE . ESTIMATED GFR I S NOT APPLICABLE FOR DIALYSIS PATIEN TS. Returned Telephone Equipment Appraiser ID - EOSpecimen moderately ictericHepatic function [id number] 07:29:08 Test Item Value Reference Range Interpretation Comments Protein, Total (test 5.2 See_Comment L Specime n slightly code = 2885-2) hemolyzed [Automated message] The system which generated this result transmitted reference range : 6.0 - 8.3 gm/dL . The reference range was not used to interpr et this result as normal/abnormal . Albumin (test code = 2.1 g/dL 3.5-5.0 L Specime n slightly 26923-0) hemolyzed Total Bilirubin (test 3.9 mg/dL 0.2-1.2 [...] 1742-6) hemolyzed REJI (test code = REJI) Returned Telephone Equipment Appraiser ID - EOSpecimen moderately icteric Lab Interpretation Abnormal (test code = 27791-5) [facility] [id number] 07:29:08 Test Item Value Reference Range Interpretation Comments Protein, Total (test 5.2 See_Comment L Specime n slightly code = 2885-2) hemolyzed [Automated message] The system which generated this result transmitted reference range : 6.0 - 8.3 gm/dL . The reference range was not used to interpr et this result as normal/abnormal . Albumin (test code = 2.1 g/dL 3.5-5.0 L Specime n slightly 48013-4) hemolyzed Total Bilirubin (test 3.9 mg/dL 0.2-1.2 [...] 1742-6) hemolyzed REJI (test code = REJI) Returned Telephone Equipment Appraiser ID - EOSpecimen moderately icteric Lab Interpretation Abnormal (test code = 98070-8) [facility] [id number] 07:29:08 Test Item Value Reference Range Interpretation Comments Protein, Total (test 5.2 See_Comment L Specime n slightly code = 2885-2) hemolyzed [Automated message] The system which generated this result transmitted reference range : 6.0 - 8.3 gm/dL . The reference range was not used to interpr et this result as normal/abnormal . Albumin (test code = 2.1 g/dL 3.5-5.0 L Specime n slightly 41094-9) hemolyzed Total Bilirubin (test 3.9 mg/dL 0.2-1.2 [...] 1742-6) hemolyzed REJI (test code = REJI) Returned Telephone Equipment Appraiser ID - EOSpecimen moderately icteric Lab Interpretation Abnormal (test code = 73794-9) [facility] [id number] 07:29:08 Test Item Value Reference Range Interpretation [...] Specimen slightly (test code = 347) hemolyzed Returned Telephone Equipment Appraiser ID - EOSpecimen moderately ictericProthrombin time/EJC1528-44-03 06:46:58 Test Item Value Reference Interpretation Comments [...] valves. Lab Interpretation Abnormal (test code = 06754-9) [facility]/[id number] 06:46:58 Test Item Value Reference Interpretation Comments [...] valves. Lab Interpretation Abnormal (test code = 96988-6) [facility] Hospital[facility]th[facility] time/[id number] 06:46:58 Test Item Value Reference Interpretation Comments [...] valves. Lab Interpretation Abnormal (test code = 01760-4) [facility]/[id number] 06:46:58 Test Item Value Reference Range Interpretation Comments PROTIME (BEAKER) 22.1 seconds 11.9-14.2 H (test code = 759) INR (BEAKER) (test 1.96 See_Comment [Automat ed message] code = 370) The system [employer] generated this result transmitted ref erence range: <=5.90. The reference range was not used to int erpret this result as normal/abnormal . RECOMMENDED COUMADIN/WARFARIN INR THERAPY RANGESSTANDARD DOSE: 2.0 - 3.0 Includes: PROPHYLAXIS for venous thrombosis, systemic embolization; TREATMENT for venous thrombosis and/or pulmonary embolus.HIGH RISK: Target INR is 2.5-3.5 for patients with mechanical heart valves.CBC with platelet count + automated [id number] 06:38:55 Test Item Value Reference Range Interpretation Comments WBC (test code = 6690-2) 7.9 See_Comment [A utomated message] The system [employer] generated this result transmitted ref erence range: 3.5 - 10 .5 K/L. The refe rence range was not u sed to interpret this result as normal/abnor mal. RBC (test code = 789-8) 2.53 See_Comment L [Au tomated message] The system [employer] generated this result transmitted ref erence range: 3.93 - 5 .22 M/L. The refe rence range was not u sed to interpret this result as normal/abnor mal. MCHC (test code = 786-4) 30.8 See_Comment L [A utomated message] The system [employer] generated this result transmitted ref erence range: [...] L [Aut omated message] 777-3) The system [employer] generated this result transmitted ref erence range: 150 - 45 0 K/CU MM. The referen ce range was not u sed to interpret this result as normal/abnor mal. MPV (test code = 10.6 fL 9.4-12.3 81635-0) nRBC (test code = 413) 0 See_Comment [Aut omated message] The system [employer] generated this result transmitted ref erence range: [...] See_Comment [Aut omated message] 670) The system [employer] generated this result transmitted ref erence range: 1.56 - 6 .13 K/L. The refe rence range was not u sed to interpret this result as normal/abnor mal. # Lymphs (test code = 0.99 See_Comment L [Auto mated message] 414) The system [employer] generated this result transmitted ref erence range: 1.18 - 3 .74 K/L. The refe rence range was not u sed to interpret this result as normal/abnor mal. # Monos (test code = 0.83 See_Comment H [Autom ated message] 415) The system [employer] generated this result transmitted ref erence range: 0.24 - 0 .36 K/L. The refe rence range was not u sed to interpret this result as normal/abnor mal. # Eos (test code = 416) 0.33 See_Comment [Au tomated message] The system [employer] generated this result transmitted ref erence range: 0.04 - 0 .36 K/L. The refe rence range was not u sed to interpret this result as normal/abnor mal. # Baso (test code = 417) 0.04 See_Comment [A utomated message] The system [employer] generated this result transmitted ref erence range: 0.01 - 0 .08 K/L. The refe rence range was not u sed to interpret this result as normal/abnor mal. Immature 1 % 0-1 Granulocytes-Relative (test code = 2801) Lab Interpretation (test Abnormal code = 91920-0) [facility] + automated [id number] 06:38:55 Test Item Value Reference Range Interpretation Comments WBC (test code = 6690-2) 7.9 See_Comment [A utomated message] The system [employer] generated this result transmitted ref erence range: 3.5 - 10 .5 K/L. The refe rence range was not u sed to interpret this result as normal/abnor mal. RBC (test code = 789-8) 2.53 See_Comment L [Au tomated message] The system [employer] generated this result transmitted ref erence range: 3.93 - 5 .22 M/L. The refe rence range was not u sed to interpret this result as normal/abnor mal. MCHC (test code = 786-4) 30.8 See_Comment L [A utomated message] The system [employer] generated this result transmitted ref erence range: [...] L [Aut omated message] 777-3) The system [employer] generated this result transmitted ref erence range: 150 - 45 0 K/CU MM. The referen ce range was not u sed to interpret this result as normal/abnor mal. MPV (test code = 10.6 fL 9.4-12.3 11700-6) nRBC (test code = 413) 0 See_Comment [Aut omated message] The system [employer] generated this result transmitted ref erence range: [...] See_Comment [Aut omated message] 670) The system [employer] generated this result transmitted ref erence range: 1.56 - 6 .13 K/L. The refe rence range was not u sed to interpret this result as normal/abnor mal. # Lymphs (test code = 0.99 See_Comment L [Auto mated message] 414) The system [employer] generated this result transmitted ref erence range: 1.18 - 3 .74 K/L. The refe rence range was not u sed to interpret this result as normal/abnor mal. # Monos (test code = 0.83 See_Comment H [Autom ated message] 415) The system [employer] generated this result transmitted ref erence range: 0.24 - 0 .36 K/L. The refe rence range was not u sed to interpret this result as normal/abnor mal. # Eos (test code = 416) 0.33 See_Comment [Au tomated message] The system [employer] generated this result transmitted ref erence range: 0.04 - 0 .36 K/L. The refe rence range was not u sed to interpret this result as normal/abnor mal. # Baso (test code = 417) 0.04 See_Comment [A utomated message] The system [employer] generated this result transmitted ref erence range: 0.01 - 0 .08 K/L. The refe rence range was not u sed to interpret this result as normal/abnor mal. Immature 1 % 0-1 Granulocytes-Relative (test code = 2801) Lab Interpretation (test Abnormal code = 18061-6) [facility] with platelet count + automated [id number] 06:38:55 Test Item Value Reference Range Interpretation Comments WBC (test code = 6690-2) 7.9 See_Comment [A utomated message] The system [employer] generated this result transmitted ref erence range: 3.5 - 10 .5 K/L. The refe rence range was not u sed to interpret this result as normal/abnor mal. RBC (test code = 789-8) 2.53 See_Comment L [Au tomated message] The system [employer] generated this result transmitted ref erence range: 3.93 - 5 .22 M/L. The refe rence range was not u sed to interpret this result as normal/abnor mal. MCHC (test code = 786-4) 30.8 See_Comment L [A utomated message] The system [employer] generated this result transmitted ref erence range: [...] L [Aut omated message] 777-3) The system [employer] generated this result transmitted ref erence range: 150 - 45 0 K/CU MM. The referen ce range was not u sed to interpret this result as normal/abnor mal. MPV (test code = 10.6 fL 9.4-12.3 15467-8) nRBC (test code = 413) 0 See_Comment [Aut omated message] The system [employer] generated this result transmitted ref erence range: [...] See_Comment [Aut omated message] 670) The system [employer] generated this result transmitted ref erence range: 1.56 - 6 .13 K/L. The refe rence range was not u sed to interpret this result as normal/abnor mal. # Lymphs (test code = 0.99 See_Comment L [Auto mated message] 414) The system [employer] generated this result transmitted ref erence range: 1.18 - 3 .74 K/L. The refe rence range was not u sed to interpret this result as normal/abnor mal. # Monos (test code = 0.83 See_Comment H [Autom ated message] 415) The system [employer] generated this result transmitted ref erence range: 0.24 - 0 .36 K/L. The refe rence range was not u sed to interpret this result as normal/abnor mal. # Eos (test code = 416) 0.33 See_Comment [Au tomated message] The system [employer] generated this result transmitted ref erence range: 0.04 - 0 .36 K/L. The refe rence range was not u sed to interpret this result as normal/abnor mal. # Baso (test code = 417) 0.04 See_Comment [A utomated message] The system [employer] generated this result transmitted ref erence range: 0.01 - 0 .08 K/L. The refe rence range was not u sed to interpret this result as normal/abnor mal. Immature 1 % 0-1 Granulocytes-Relative (test code = 2801) Lab Interpretation (test Abnormal code = 41931-6) [facility] W/PLT COUNT & AUTO [id number] 06:38:55 Test Item Value Reference Range Interpretation [...] = 2801) CBC W/PLT COUNT & AUTO [id number] 10:18:58 Test Item Value Reference Range Interpretation [...] (BEAKER) (test code = 2801) BASIC METABOLIC [id number] 08:06:00 Test Item Value Reference Range Interpretation [...] 697) EGFR (BEAKER) (test 83 mL/min/1.73 ESTIMA ANDRESSA GFR IS code = 1092) sq m NOT ACCURATE CREATININE CLEARANCE IN PREDICTING GLOMERULAR FILTRATION RATE . ESTIMATED GFR I S NOT APPLICABLE FOR DIALYSIS PATIEN TS. Returned Telephone Equipment Appraiser ID - PIAYA LSpecimen moderately ictericHEPATIC FUNCTION [id number] 08:06:00 Test Item Value Reference Range Interpretation [...] (test code = 19 U/L 6-55 347) Returned Telephone Equipment Appraiser ID Ajay Ferrera moderately ictericPROTHROMBIN TIME/[id number] 07:51:15 Test Item Value Reference Range Interpretation Comments PROTIME (BEAKER) 20.6 seconds 11.9-14.2 H (test code = 759) INR (BEAKER) (test 1.80 See_Comment [Automat ed message] code = 370) The system [employer] generated this result transmitted ref erence range: <=5.90. The reference range was not used to int erpret this result as normal/abnormal . RECOMMENDED COUMADIN/WARFARIN INR THERAPY RANGESSTANDARD DOSE: 2.0 - 3.0 Includes: PROPHYLAXIS for venous thrombosis, systemic embolization; TREATMENT for venous thrombosis and/or pulmonary embolus.HIGH RISK: Target INR is 2.5-3.5 for patients with mechanical heart valves.HEPATIC FUNCTION [id number] 07:41:30 Test Item Value Reference Range Interpretation [...] (test code = 21 U/L 6-55 347) Returned Telephone Equipment Appraiser ID - MARLON Ferrera moderately ictericBASIC METABOLIC [id number] 07:41:29 Test Item Value Reference Range Interpretation [...] 697) EGFR (BEAKER) (test 80 mL/min/1.73 ESTIMA ANDRESSA GFR IS code = 1092) sq m NOT ACCURATE CREATININE CLEARANCE IN PREDICTING GLOMERULAR FILTRATION RATE . ESTIMATED GFR I S NOT APPLICABLE FOR DIALYSIS PATIEN TS. Returned Telephone Equipment Appraiser ID - PIAYA LSpecimen moderately ictericPROTHROMBIN TIME/[id number] 07:34:58 Test Item Value Reference Range Interpretation Comments PROTIME (BEAKER) 19.3 seconds 11.9-14.2 H (test code = 759) INR (BEAKER) (test 1.66 See_Comment [Automat ed message] code = 370) The system [employer] generated this result transmitted ref erence range: <=5.90. The reference range was not used to int erpret this result as normal/abnormal . RECOMMENDED COUMADIN/WARFARIN INR THERAPY RANGESSTANDARD DOSE: 2.0 - 3.0 Includes: PROPHYLAXIS for venous thrombosis, systemic embolization; TREATMENT for venous thrombosis and/or pulmonary embolus.HIGH RISK: Target INR is 2.5-3.5 for patients with mechanical heart valves.CBC W/PLT COUNT & AUTO [id number] 07:30:35 Test Item Value Reference Range Interpretation [...] PERCENT (BEAKER) (test code = 2801) VITAMIN [id number] 07:00:04 Test Item Value Reference Range Interpretation Comments VITAMIN B12 (BEAKER) (test code = > pg/mL 213-816 H 774) Returned Telephone Equipment Appraiser ID - ZAC WBASIC METABOLIC [id number] 06:43:51 Test Item Value Reference Range Interpretation [...] 697) EGFR (BEAKER) (test 83 mL/min/1.73 ESTIMA ANDRESSA GFR IS code = 1092) sq m NOT ACCURATE CREATININE CLEARANCE IN PREDICTING GLOMERULAR FILTRATION RATE . ESTIMATED GFR I S NOT APPLICABLE FOR DIALYSIS PATIEN TS. Returned Telephone Equipment Appraiser ID - ZAC WOperator ID - MARLON LSpecimen slightly ictericVITAMIN D, 53-[id number] 05:27:33 Test Item Value Reference Range Interpretation Comments VITAMIN D 25-OH (BEAKER) (test code 4.4 ng/mL 6.6-49.9 L = 2764) Effective 05/22/2017: Reference Range ChangeNew: 6.6-49.9 ng/mL Previous: 13.0- 47.8 ng/mLRecommendedVitamin D Target Range: 30.0-40.0 ng/mLOperator ID - MARLON LC-REACTIVE [id number] 05:23:46 Test Item Value Reference Range Interpretation Comments C-REACTIVE PROTEIN (BEAKER) (test 1.00 mg/dL 0.00-0.50 H code = 676) Returned Telephone Equipment Appraiser ID - ZAC FTSCBJYRDN9694-73-39 05:23:45 Test Item Value Reference Range Interpretation Comments MAGNESIUM (BEAKER) (test code = 1.6 mg/dL 1.6-2.6 627) Returned Telephone Equipment Appraiser ID - ZAC WHEPATIC FUNCTION [id number] 05:23:45 Test Item Value Reference Range Interpretation [...] (test code = 17 U/L 6-55 347) Returned Telephone Equipment Appraiser GINA Rosales slightly ictericPROTHROMBIN TIME/[id number] 04:53:27 Test Item Value Reference Range Interpretation Comments PROTIME (BEAKER) 22.4 seconds 11.9-14.2 H (test code = 759) INR (BEAKER) (test 2.00 See_Comment [Automat ed message] code = 370) The system [employer] generated this result transmitted ref erence range: <=5.90. The reference range was not used to int erpret this result as normal/abnormal . RECOMMENDED COUMADIN/WARFARIN INR THERAPY RANGESSTANDARD DOSE: 2.0 - 3.0 Includes: PROPHYLAXIS for venous thrombosis, systemic embolization; TREATMENT for venous thrombosis and/or pulmonary embolus.HIGH RISK: Target INR is 2.5-3.5 for patients with mechanical heart valves.CBC W/PLT COUNT & AUTO [id number] 04:49:49 Test Item Value Reference Range Interpretation [...] (BEAKER) (test code = 2801) Basic Metabolic [id number] 08:26:03 Test Item Value Reference Range Interpretation Comments Sodium (test code = 137 meq/L 280-895 7546-2) Potassium (test code 3.5 meq/L 3.5-5.1 = 2823-3) Chloride (test code = 109 meq/L 98-107 H 2075-0) CO2 (test code = 24 meq/L 22-29 2028-9) BUN (test code = 13 mg/dL 7-21 3094-0) Creatinine (test code 0.73 mg/dL 0.57-1.25 = 2160-0) Glucose (test code = 85 mg/dL 70-105 2345-7) Calcium (test code = 7.7 mg/dL 8.4-10.2 L 65061-5) EGFR (test code = 81 mL/min/1.73 [place] [address]-1) NOT ACCURATE CREATININE CLEARANCE IN PREDICTING GLOMERULAR FILTRATION RATE . ESTIMATED GFR I S NOT APPLICABLE FOR DIALYSIS PATIENTS. REJI (test code = REJI) Returned Telephone Equipment Appraiser ID - MARLON Davispan ID - DBSpecimen slightly icteric Lab Interpretation Abnormal (test code = 31106-1) [facility] METABOLIC [id number] 08:26:03 Test Item Value Reference Range Interpretation Comments SODIUM (BEAKER) 137 meq/L 136-145 (test code = 381) POTASSIUM (BEAKER) 3.5 meq/L 3.5-5.1 (test code = 379) CHLORIDE (BEAKER) 109 meq/L 98-107 H (test code = 382) CO2 (BEAKER) (test 24 meq/L - code = 355) BLOOD UREA NITROGEN 13 mg/dL 7-21 (BEAKER) (test code = 354) CREATININE (BEAKER) 0.73 mg/dL 0.57-1.25 (test code = 358) GLUCOSE RANDOM 85 mg/dL 70-105 (BEAKER) (test code = 652) CALCIUM (BEAKER) 7.7 mg/dL 8.4-10.2 L (test code = 697) EGFR (BEAKER) (test 81 mL/min/1.73 ESTIMA ANDRESSA GFR IS code = 1092) sq m NOT ACCURATE CREATININE CLEARANCE IN PREDICTING GLOMERULAR FILTRATION RATE . ESTIMATED GFR I S NOT APPLICABLE FOR DIALYSIS PATIEN TS. Returned Telephone Equipment Appraiser ID - MARLON Campbellanaid ID - DBSpecimen slightly ictericHepatic function [id number] 07:24:45 Test Item Value Reference Range Interpretation Comments Protein, Total (test 4.9 See_Comment L [Autom ated code = 2885-2) message] The system which generated this result transmitted reference range : 6.0 - 8.3 gm/dL . The reference range was not used to interpr et this result as normal/abnormal . Albumin (test code = 2.2 g/dL 3.5-5.0 L 37010-1) Total Bilirubin (test 4.0 mg/dL 0.2-1.2 H code = 1975-2) Bilirubin, Direct 1.5 mg/dL 0.1-0.5 H (test code = 1967-7) Alkaline Phosphatase 111 U/L 40-150 (test code = 6768-6) AST (test code = 53 U/L 5-34 H 1920-8) ALT (test code = 17 U/L 6-55 1742-6) REJI (test code = REJI) Returned Telephone Equipment Appraiser ID - MARLON LSpecimen slightly icteric Lab Interpretation Abnormal (test code = 64525-5) [facility]2022-01-31 07:24:45 Test Item Value Reference Range Interpretation Comments Magnesium (test code = 1.7 mg/dL 1.6-2.6 76925-5) REJI (test code = REJI) Returned Telephone Equipment Appraiser ID - MARLON L Lab Interpretation (test Normal code = 98942-3) [facility]2022-01-31 07:24:45 Test Item Value Reference Range Interpretation Comments MAGNESIUM (BEAKER) (test code = 1.7 mg/dL 1.6-2.6 627) Returned Telephone Equipment Appraiser ID - MARLON LHEPATIC FUNCTION [id number] 07:24:45 Test Item Value Reference Range Interpretation [...] (test code = 17 U/L 6-55 347) Returned Telephone Equipment Appraiser ID - PIAYA LSpecimen slightly ictericProthrombin time/[id number] 06:40:57 Test Item Value Reference Interpretation Comments [...] valves. Lab Interpretation Abnormal (test code = 19681-8) [facility][id number] 06:40:57 Test Item Value Reference Range Interpretation Comments PROTIME (BEAKER) 22.5 seconds 11.9-14.2 H (test code = 759) INR (BEAKER) (test 2.01 See_Comment [Automat ed message] code = 370) The system [employer] generated this result transmitted ref erence range: <=5.90. The reference range was not used to int erpret this result as normal/abnormal . RECOMMENDED COUMADIN/WARFARIN INR THERAPY RANGESSTANDARD DOSE: 2.0 - 3.0 Includes: PROPHYLAXIS for venous thrombosis, systemic embolization; TREATMENT for venous thrombosis and/or pulmonary embolus.HIGH RISK: Target INR is 2.5-3.5 for patients with mechanical heart valves.CBC with platelet count + automated [id number] 06:36:06 Test Item Value Reference Range Interpretation Comments WBC (test code = 6690-2) 10.6 See_Comment H [A utomated message] The system [employer] generated this result transmitted ref erence range: 3.5 - 10 .5 K/L. The refe rence range was not u sed to interpret this result as normal/abnor mal. RBC (test code = 789-8) 2.76 See_Comment L [Au tomated message] The system [employer] generated this result transmitted ref erence range: 3.93 - 5 .22 M/L. The refe rence range was not u sed to interpret this result as normal/abnor mal. MCHC (test code = 786-4) 31.5 See_Comment L [A utomated message] The system [employer] generated this result transmitted ref erence range: [...] L [Aut omated message] 777-3) The system [employer] generated this result transmitted ref erence range: 150 - 45 0 K/CU MM. The referen ce range was not u sed to interpret this result as normal/abnor mal. MPV (test code = 9.6 fL 9.4-12.3 26088-3) nRBC (test code = 413) 0 See_Comment [Aut omated message] The system [employer] generated this result transmitted ref erence range: [...] H [Aut omated message] 670) The system [employer] generated this result transmitted ref erence range: 1.56 - 6 .13 K/L. The refe rence range was not u sed to interpret this result as normal/abnor mal. # Lymphs (test code = 1.18 See_Comment [Auto mated message] 414) The system [employer] generated this result transmitted ref erence range: 1.18 - 3 .74 K/L. The refe rence range was not u sed to interpret this result as normal/abnor mal. # Monos (test code = 0.64 See_Comment H [Autom ated message] 415) The system [employer] generated this result transmitted ref erence range: 0.24 - 0 .36 K/L. The refe rence range was not u sed to interpret this result as normal/abnor mal. # Eos (test code = 416) 0.31 See_Comment [Au tomated message] The system [employer] generated this result transmitted ref erence range: 0.04 - 0 .36 K/L. The refe rence range was not u sed to interpret this result as normal/abnor mal. # Baso (test code = 417) 0.02 See_Comment [A utomated message] The system [employer] generated this result transmitted ref erence range: 0.01 - 0 .08 K/L. The refe rence range was not u sed to interpret this result as normal/abnor mal. Immature 1 % 0-1 Granulocytes-Relative (test code = 2801) Lab Interpretation (test Abnormal code = 45100-2) [facility] W/PLT COUNT & AUTO [id number] 06:36:06 Test Item Value Reference Range Interpretation [...] (BEAKER) (test code = 2801) BASIC METABOLIC [id number] 09:04:28 Test Item Value Reference Range Interpretation [...] 697) EGFR (BEAKER) (test 72 mL/min/1.73 ESTIMA ANDRESSA GFR IS code = 1092) sq m NOT ACCURATE CREATININE CLEARANCE IN PREDICTING GLOMERULAR FILTRATION RATE . ESTIMATED GFR I S NOT APPLICABLE FOR DIALYSIS PATIEN TS. Returned Telephone Equipment Appraiser ID - DBSpecimen moderately wvpxjazJKSFIXUKP6302-21-23 08:26:10 Test Item Value Reference Range Interpretation Comments MAGNESIUM (BEAKER) (test code = 1.8 mg/dL 1.6-2.6 627) Returned Telephone Equipment Appraiser ID - DBHEPATIC FUNCTION [id number] 08:26:10 Test Item Value Reference Range Interpretation [...] (test code = 17 U/L 6-55 347) Returned Telephone Equipment Appraiser ID - DBSpecimen moderately ictericPROTHROMBIN TIME/[id number] 07:14:13 Test Item Value Reference Range Interpretation Comments PROTIME (BEAKER) 23.1 seconds 11.9-14.2 H (test code = 759) INR (BEAKER) (test 2.08 See_Comment [Automat ed message] code = 370) The system [employer] generated this result transmitted ref erence range: <=5.90. The reference range was not used to int erpret this result as normal/abnormal . RECOMMENDED COUMADIN/WARFARIN INR THERAPY RANGESSTANDARD DOSE: 2.0 - 3.0 Includes: PROPHYLAXIS for venous thrombosis, systemic embolization; TREATMENT for venous thrombosis and/or pulmonary embolus.HIGH RISK: Target INR is 2.5-3.5 for patients with mechanical heart valves.CBC W/PLT COUNT & AUTO [id number] 07:07:41 Test Item Value Reference Range Interpretation [...] (BEAKER) (test code = 2801) BASIC METABOLIC [id number] 09:04:18 Test Item Value Reference Range Interpretation [...] 697) EGFR (BEAKER) (test 76 mL/min/1.73 ESTIMA ANDRESSA GFR IS code = 1092) sq m NOT ACCURATE CREATININE CLEARANCE IN PREDICTING GLOMERULAR FILTRATION RATE . ESTIMATED GFR I S NOT APPLICABLE FOR DIALYSIS PATIEN TS. Returned Telephone Equipment Appraiser ID - DBOperator ID - DBSpecimen moderately ictericHEPATIC FUNCTION [id number] 07:53:06 Test Item Value Reference Range Interpretation [...] (test code = 16 U/L 6-55 347) Returned Telephone Equipment Appraiser ID - DBSpecimen moderately ictericManual Hwqloteguqua6158-78-60 07:50:25 Test Item Value Reference Range Interpretation [...] Ovalocytes (test code = 1+ few 477) [place] Cells (test code = 1+ few 474) Artifact (test code = Present 3432) Platelet Conc (test code Decreased = 3438) REJI (test code = REJI) Returned Telephone Equipment Appraiser ID - michaela Cutler comments: Slide comments: Lab Interpretation (test Abnormal code = 49265-8) [facility] Jofxyjbqmlkm5315-95-83 07:50:25 Test Item Value Reference Range Interpretation [...] Ovalocytes (test code = 1+ few 477) [place] Cells (test code = 1+ few 474) Artifact (test code = Present 3432) Platelet Conc (test code Decreased = 3438) REJI (test code = REJI) Returned Telephone Equipment Appraiser ID - michaela balsaraUser comments: Slide comments: Lab Interpretation (test Abnormal code = 77884-9) [facility] Tzrxobbgmapc8905-67-02 07:50:25 Test Item Value Reference Range Interpretation [...] Ovalocytes (test code = 1+ few 477) [place] Cells (test code = 1+ few 474) Artifact (test code = Present 3432) Platelet Conc (test code Decreased = 3438) REJI (test code = REJI) Returned Telephone Equipment Appraiser ID - michaela balsaraUser comments: Slide comments: Lab Interpretation (test Abnormal code = 59355-6) [facility] Odgoempdsnlv6121-94-91 07:50:25 Test Item Value Reference Range Interpretation [...] = 3438) REJI (test code = REJI) Returned Telephone Equipment Appraiser ID - michaela Cutler comments: Slide comments: Lab Interpretation (test Abnormal code = 92752-6) [facility](CELLAVISION MANUAL DIFF)2021-09-09 07:50:25 Test Item Value [...] CONCENTRATION Decreased (CELLAVISION)(BEAKER) (test code = 3438) Returned Telephone Equipment Appraiser ID - michaela Cutler comments: Slide comments:CBC W/PLT COUNT & AUTO [id number] 07:50:24 Test Item Value Reference Range Interpretation [...] WBC 0-0 (test code = 413) PROTHROMBIN TIME/[id number] 06:28:05 Test Item Value Reference Range Interpretation Comments PROTIME (BEAKER) 24.0 seconds 11.9-14.2 H (test code = 759) INR (BEAKER) (test 2.18 See_Comment [Automat ed message] code = 370) The system [employer] generated this result transmitted ref erence range: [...] = No growth in 5 days 6463-4) [facility] 2021-09-08 14:01:01 Test Item Value Reference Range Interpretation Comments Result (test code = No growth in 5 days 6463-4) [facility] 2021-09-08 14:01:01 Test Item Value Reference Range Interpretation Comments Result (test code = No growth in 5 days 6463-4) [facility] 2021[facility]09[facility] 14:01:01 Test Item Value Reference Range Interpretation Comments Result (test code = No growth in 5 days 6463-4) [facility] [id number] 14:01:01 Test Item Value Reference Range Interpretation Comments CULTURE (BEAKER) (test No growth in 5 days code = 1095) Ttjgxap5336-44-74 11:09:32 Test Item Value Reference Range Interpretation Comments Ammonia (test code = 35 See_Comment [Autom ated 45439-1) message] The system which generated this result transmit andressa reference range : 18 - 72 mol/L . The reference range was not u sed to interpret th is result as normal/abnormal . REJI (test code = REJI) Returned Telephone Equipment Appraiser ID - MARLON L Lab Interpretation Normal (test code = 95874-0) [facility]2022-01-28 11:09:32 Test Item Value Reference Range Interpretation Comments Ammonia (test code = 35 See_Comment [Autom ated 66263-3) message] The system which generated this result transmit andressa reference range : 18 - 72 mol/L . The reference range was not u sed to interpret th is result as normal/abnormal . REJI (test code = REJI) Returned Telephone Equipment Appraiser ID - MARLON L Lab Interpretation Normal (test code = 88367-0) [facility]2022-01-28 11:09:32 Test Item Value Reference Range Interpretation Comments Ammonia (test code = 35 See_Comment [Autom ated 03670-3) message] The system which generated this result transmit andressa reference range : 18 - 72 mol/L . The reference range was not u sed to interpret th is result as normal/abnormal . REJI (test code = REJI) Returned Telephone Equipment Appraiser ID - ELODIAAYA L Lab Interpretation Normal (test code = 43014-7) [facility]2022-01-28 11:09:32 Test Item Value Reference Range Interpretation Comments Ammonia (test code = 35 See_Comment [Autom ated 15612-4) message] The system which generated this result transmit andressa reference range : 18 - 72 mol/L . The reference range was not u sed to interpret th is result as normal/abnormal . REJI (test code = REJI) Returned Telephone Equipment Appraiser ID - ELODIAAYA L Lab Interpretation Normal (test code = 75053-4) [facility]2022-01-28 11:09:32 Test Item Value Reference Range Interpretation Comments AMMONIA (BEAKER) (test code = 348) 35 mol/L 18-72 Returned Telephone Equipment Appraiser ID - MARLON LCBC W/PLT COUNT & AUTO [id number] 07:57:44 Test Item Value Reference Range Interpretation [...] CONCENTRATION Decreased (CELLAVISION)(BEAKER) (test code = 3438) Returned Telephone Equipment Appraiser GINA - Phyllis comments: Slide comments:BASIC METABOLIC [id number] 06:46:23 Test Item Value Reference Range Interpretation [...] 697) EGFR (BEAKER) (test 76 mL/min/1.73 ESTIMA ANDRESSA GFR IS code = 1092) sq m NOT ACCURATE CREATININE CLEARANCE IN PREDICTING GLOMERULAR FILTRATION RATE . ESTIMATED GFR I S NOT APPLICABLE FOR DIALYSIS PATIEN TS. Returned Telephone Equipment Appraiser ID - ZAC WSpecimen slightly daspbqwMcxmjknpky7294-36-53 06:42:47 Test Item Value Reference Range Interpretation Comments Phosphorus (test code = 2.4 mg/dL 2.3-4.7 2777-1) REJI (test code = REJI) Returned Telephone Equipment Appraiser ID - ZAC W Lab Interpretation (test Normal code = 39307-8) [facility] 06:42:47 Test Item Value Reference Range Interpretation Comments Phosphorus (test code = 2.4 mg/dL 2.3-4.7 2777-1) REJI (test code = REJI) Returned Telephone Equipment Appraiser ID - ZAC W Lab Interpretation (test Normal code = 78669-6) [facility] 06:42:47 Test Item Value Reference Range Interpretation Comments Phosphorus (test code = 2.4 mg/dL 2.3-4.7 2777-1) REJI (test code = REJI) Returned Telephone Equipment Appraiser ID - ZAC W Lab Interpretation (test Normal code = 19422-2) [facility] 06:42:47 Test Item Value Reference Range Interpretation Comments Phosphorus (test code = 2.4 mg/dL 2.3-4.7 2777-1) REJI (test code = REJI) Returned Telephone Equipment Appraiser ID - ZAC W Lab Interpretation (test Normal code = 32910-9) [facility] 06:42:47 Test Item Value Reference Range Interpretation Comments PHOSPHORUS (BEAKER) (test code = 2.4 mg/dL 2.3-4.7 604) Returned Telephone Equipment Appraiser ID - ZAC WHEPATIC FUNCTION [id number] 06:42:47 Test Item Value Reference Range Interpretation [...] (test code = 15 U/L 6-55 347) Returned Telephone Equipment Appraiser ID - ZAC Rosales slightly ictericPROTHROMBIN TIME/[id number] 05:37:24 Test Item Value Reference Range Interpretation Comments PROTIME (BEAKER) 26.6 seconds 11.9-14.2 H (test code = 759) INR (BEAKER) (test 2.48 See_Comment [Automat ed message] code = 370) The system [employer] generated this result transmitted ref erence range: [...] CONCENTRATION Decreased (CELLAVISION)(BEAKER) (test code = 3438) Returned Telephone Equipment Appraiser ID - Cindy Gibson comments: Slide comments:CBC W/PLT COUNT & AUTO [id number] 09:40:43 Test Item Value Reference Range Interpretation [...] 0-0 (test code = 413) BASIC METABOLIC [id number] 07:22:45 Test Item Value Reference Range Interpretation [...] 697) EGFR (BEAKER) (test 67 mL/min/1.73 ESTIMA ANDRESSA GFR IS code = 1092) sq m NOT ACCURATE CREATININE CLEARANCE IN PREDICTING GLOMERULAR FILTRATION RATE . ESTIMATED GFR I S NOT APPLICABLE FOR DIALYSIS PATIEN TS. Returned Telephone Equipment Appraiser ID - PIAYA LSpecimen slightly dmesiyuGIZRGRFDCU8193-30-05 07:16:27 Test Item Value Reference Range Interpretation Comments PHOSPHORUS (BEAKER) (test code = 2.2 mg/dL 2.3-4.7 L 604) Returned Telephone Equipment Appraiser ID - MARLON LHEPATIC FUNCTION [id number] 07:16:27 Test Item Value Reference Range Interpretation [...] (test code = 17 U/L 6-55 347) Returned Telephone Equipment Appraiser ID - MARLON Tothimen slightly ictericBLOOD DZZVZGB8621-17-49 07:00:33 Test Item Value Reference Range Interpretation Comments CULTURE (BEAKER) (test No growth in 5 days code = 1095) PROTHROMBIN TIME/DJG1961 06:15:38 Test Item Value Reference Range Interpretation Comments PROTIME (BEAKER) 25.1 seconds 11.9-14.2 H (test code = 759) INR (BEAKER) (test 2.31 See_Comment [Automat ed message] code = 370) The system [employer] generated this result transmitted ref erence range: <=5.90. The reference range was not used to int erpret this result as normal/abnormal . RECOMMENDED COUMADIN/WARFARIN INR THERAPY RANGESSTANDARD DOSE: 2.0 - 3.0 Includes: PROPHYLAXIS for venous thrombosis, systemic embolization; TREATMENT for venous thrombosis and/or pulmonary embolus.HIGH RISK: Target INR is 2.5-3.5 for patients with mechanical heart valves.Ova and Parasite Myezztymcel1571-06-00 08:26:13 Test Item Value Reference Range Interpretation Comments O&P Direct Smear (test No ova or parasites No ova or code = 72483-5) seen parasites seen REJI (test code = REJI) See scanned report Lab Interpretation (test Normal code = 68518-2) [facility] and Parasite Sskwipatnfp9510-60-35 08:26:13 Test Item Value Reference Range Interpretation Comments O&P Direct Smear (test No ova or parasites No ova or code = 39880-7) seen parasites seen REJI (test code = REJI) See scanned report Lab Interpretation (test Normal code = 41048-2) [facility] and Parasite Arkhbnqnxgk4551-94-93 08:26:13 Test Item Value Reference Range Interpretation Comments O&P Direct Smear (test No ova or parasites No ova or code = 51383-6) seen parasites seen REJI (test code = REJI) See scanned report Lab Interpretation (test Normal code = 87887-3) [facility] and Parasite Nqanpxuzyba0562-45-64 08:26:13 Test Item Value Reference Range Interpretation Comments O&P Direct Smear (test No ova or parasites No ova or code = 99668-7) seen parasites seen REJI (test code = REJI) See scanned report Lab Interpretation (test Normal code = 55724-1) [facility] 07:29:32 Test Item Value Reference Range Interpretation Comments PHOSPHORUS (BEAKER) (test code = 1.5 mg/dL 2.3-4.7 LL 604) Returned Telephone Equipment Appraiser ID - ZAC WBASIC METABOLIC [id number] 07:09:27 Test Item Value Reference Range Interpretation [...] 697) EGFR (BEAKER) (test 70 mL/min/1.73 ESTIMA ANDRESSA GFR IS code = 1092) sq m NOT ACCURATE CREATININE CLEARANCE IN PREDICTING GLOMERULAR FILTRATION RATE . ESTIMATED GFR I S NOT APPLICABLE FOR DIALYSIS PATIEN TS. Returned Telephone Equipment Appraiser ID - ZAC WSpecimen slightly ictericPROTHROMBIN TIME/[id number] 06:57:19 Test Item Value Reference Range Interpretation Comments PROTIME (BEAKER) 23.2 seconds 11.9-14.2 H (test code = 759) INR (BEAKER) (test 2.09 See_Comment [Automat ed message] code = 370) The system [employer] generated this result transmitted ref erence range: [...] CONCENTRATION Decreased (CELLAVISION)(BEAKER) (test code = 3438) Returned Telephone Equipment Appraiser ID - nabil Julian comments: Slide comments:[id number] 15:08:54 Test Item Value Reference Range Interpretation Comments PHOSPHORUS (BEAKER) (test code = 1.2 mg/dL 2.3-4.7 LL 604) Returned Telephone Equipment Appraiser ID - BSBASIC METABOLIC [id number] 15:04:30 Test Item Value Reference Range Interpretation [...] 697) EGFR (BEAKER) (test 61 mL/min/1.73 ESTIMA ANDRESSA GFR IS code = 1092) sq m NOT ACCURATE CREATININE CLEARANCE IN PREDICTING GLOMERULAR FILTRATION RATE . ESTIMATED GFR I S NOT APPLICABLE FOR DIALYSIS PATIEN TS. Returned Telephone Equipment Appraiser ID - BSSpecimen slightly ictericHEPATIC FUNCTION [id number] 15:02:35 Test Item Value Reference Range Interpretation [...] (test code = 17 U/L 6-55 347) Returned Telephone Equipment Appraiser ID - BSSpecimen slightly ictericPROTHROMBIN TIME/[id number] 14:50:10 Test Item Value Reference Range Interpretation Comments PROTIME (BEAKER) 24.9 seconds 11.9-14.2 H (test code = 759) INR (BEAKER) (test 2.28 See_Comment [Automat ed message] code = 370) The system [employer] generated this result transmitted ref erence range: <=5.90. The reference range was not used to int erpret this result as normal/abnormal . RECOMMENDED COUMADIN/WARFARIN INR THERAPY RANGESSTANDARD DOSE: 2.0 - 3.0 Includes: PROPHYLAXIS for venous thrombosis, systemic embolization; TREATMENT for venous thrombosis and/or pulmonary embolus.HIGH RISK: Target INR is 2.5-3.5 for patients with mechanical heart valves.CBC W/PLT COUNT & AUTO [id number] 14:44:53 Test Item Value Reference Range Interpretation [...] (test code = 413) Clostridium difficile GDH [id number] 21:23:26 Test Item Value Reference Range Interpretation Comments C. Difficle Toxin Positive Negative A (test code = 8997786055) C. Difficile GDH Positive Negative A Confirms Antigen (test code = Clostri dium 1403580723) difficile-assoc ia andressa infection.First line therapy - oral Vancomycin . [...] of kit performance was done by the [facility] prior to clinical use. Lab Interpretation Abnormal (test code = 15198-7) [facility] [id number] 21:23:26 Test Item Value Reference Range Interpretation Comments C. Difficle Toxin Positive Negative A (test code = 7360676958) C. Difficile GDH Positive Negative A Confirms Antigen (test code = Clostri dium 8019381446) difficile-assoc ia andressa infection.First line therapy - oral Vancomycin . [...] of kit performance was done by the [facility] prior to clinical use. Lab Interpretation Abnormal (test code = 11312-8) [facility] [id number] 21:23:26 Test Item Value Reference Range Interpretation Comments C. Difficle Toxin Positive Negative A (test code = 6383332803) C. Difficile GDH Positive Negative A Confirms Antigen (test code = Clostri dium 7022660125) difficile-assoc ia andressa infection.First line therapy - oral Vancomycin . [...] of kit performance was done by the [facility] prior to clinical use. Lab Interpretation Abnormal (test code = 93149-6) [facility] [id number] 21:23:26 Test Item Value Reference Range Interpretation Comments C. Difficle Toxin Positive Negative A (test code = 5997241380) C. Difficile GDH Positive Negative A Confirms Antigen (test code = Clostri dium 1863450357) difficile-assoc ia andressa infection.First line therapy - oral Vancomycin . [...] of kit performance was done by the [facility] prior to clinical use. Lab Interpretation Abnormal (test code = 02982-7) [facility]. DIFFICILE GDH [id number] 21:23:26 Test Item Value Reference Range Interpretation Comments CDT TOXIN (test code Positive Negative A = 1360360640) CDT GDH ANTIGEN Positive Negative A Confirms Maria Esther stridium (test code = difficile-assoc iated 0538365187) infection.First line therapy - oral Vancomycin. Con tinue enteric isolati on until 72 hours after treatment is discontinued and symptoms have r esolved. Testing performed by [employer] Rapid [employer]ette [employer]. For GDH, published sensitivity of the assay is 98.7% compared to cytotoxicity testing. For Toxin AB, published sensitivity is 87.8% and specificity 99.4% compared to cytotoxicity testing.Verification of kit performance was done by the [facility] prior to clinical use.CT, CHEST, WITH [id number] 10:14:00Unlisted Reason for Exam - Click Yes and Enter Reason Below->No [facility] 1960 Sex: [...] spleen. Small volume ascites. Signed: Quentin Sims [facility] Verified Date/Time: 09/04/2021 10:14:08 [facility] [id number] 10:14:00Unlisted Reason for Exam - Click Yes and Enter Reason Below->No Is this for enterography?->YesWill this procedure require oral contrast?->Yes [facility] : 1960 Sex: [...] CONCENTRATION Decreased (CELLAVISION)(BEAKER) (test code = 3438) Returned Telephone Equipment Appraiser ID - michaela Cutler comments: Slide comments:CBC W/PLT COUNT & AUTO [id number] 07:25:32 Test Item Value Reference Range Interpretation [...] /100 WBC 0-0 (test code = 413) [id number] 06:26:19 Test Item Value Reference Range Interpretation Comments PHOSPHORUS (BEAKER) (test code = 1.5 mg/dL 2.3-4.7 LL 604) Returned Telephone Equipment Appraiser ID Ajay FRANK WComprehensive metabolic [id number] 06:18:30 Test Item Value Reference Range Interpretation Comments Protein, Total (test 4.7 See_Comment L [Autom ated code = 2885-2) message] The system which generated this result transmitted reference range : 6.0 - 8.3 gm/dL . The reference range was not used to interpr et this result as normal/abnormal . Albumin (test code = 2.7 g/dL 3.5-5.0 L 38113-0) Alkaline Phosphatase 85 U/L 40-150 (test code [...] (test code = 7.3 mg/dL 8.4-10.2 L 48106-5) AST (test code = 28 U/L 5-34 1920-8) ALT (test code = 14 U/L 6-55 1742-6) EGFR (test code = 53 mL/min/1.73 [place] [address]-0) NOT ACCURATE CREATININE CLEARANCE IN PREDICTING GLOMERULAR FILTRATION RATE . ESTIMATED GFR I S NOT APPLICABLE FOR DIALYSIS PATIENTS. REJI (test code = REJI) Returned Telephone Equipment Appraiser ID - ZAC WOODSpecimekorin slightly icteric Lab Interpretation Abnormal (test code = 33604-2) [facility] [id number] 06:18:30 Test Item Value Reference Range Interpretation Comments Protein, Total (test 4.7 See_Comment L [Autom ated code = 2885-2) message] The system which generated this result transmitted reference range : 6.0 - 8.3 gm/dL . The reference range was not used to interpr et this result as normal/abnormal . Albumin (test code = 2.7 g/dL 3.5-5.0 L 18300-5) Alkaline Phosphatase 85 U/L 40-150 (test code [...] (test code = 7.3 mg/dL 8.4-10.2 L 30468-3) AST (test code = 28 U/L -34 1920-8) ALT (test code = 14 U/L - 1742-6) EGFR (test code = 53 mL/min/1.73 [place] [address]-3) NOT ACCURATE CREATININE CLEARANCE IN PREDICTING GLOMERULAR FILTRATION RATE . ESTIMATED GFR I S NOT APPLICABLE FOR DIALYSIS PATIENTS. REJI (test code = REJI) Returned Telephone Equipment Appraiser ID - ZAC WSpecnicole slightly icteric Lab Interpretation Abnormal (test code = 74408-5) [facility] [id number] 06:18:30 Test Item Value Reference Range Interpretation Comments Protein, Total (test 4.7 See_Comment L [Autom ated code = 2885-2) message] The system which generated this result transmitted reference range : 6.0 - 8.3 gm/dL . The reference range was not used to interpr et this result as normal/abnormal . Albumin (test code = 2.7 g/dL 3.5-5.0 L 64998-8) Alkaline Phosphatase 85 U/L 40-150 (test code [...] (test code = 7.3 mg/dL 8.4-10.2 L 46241-5) AST (test code = 28 U/L 1919-8) ALT (test code = 14 U/L 6-55 1742-6) EGFR (test code = 53 mL/min/1.73 [place] [address]-5) NOT ACCURATE CREATININE CLEARANCE IN PREDICTING GLOMERULAR FILTRATION RATE . ESTIMATED GFR I S NOT APPLICABLE FOR DIALYSIS PATIENTS. REJI (test code = REJI) Returned Telephone Equipment Appraiser ID - ZAC Rosales slightly icteric Lab Interpretation Abnormal (test code = 79887-1) [facility] [id number] 06:18:30 Test Item Value Reference Range Interpretation Comments Protein, Total (test 4.7 See_Comment L [Autom ated code = 2885-2) message] The system which generated this result transmitted reference range : 6.0 - 8.3 gm/dL . The reference range was not used to interpr et this result as normal/abnormal . Albumin (test code = 2.7 g/dL 3.5-5.0 L 78883-0) Alkaline Phosphatase 85 U/L 40-150 (test code [...] (test code = 7.3 mg/dL 8.4-10.2 L 21557-7) AST (test code = 28 U/L 5-34 1920-8) ALT (test code = 14 U/L 2-6) EGFR (test code = 53 mL/min/1.73 [place] [address]-8) NOT ACCURATE CREATININE CLEARANCE IN PREDICTING GLOMERULAR FILTRATION RATE . ESTIMATED GFR I S NOT APPLICABLE FOR DIALYSIS PATIENTS. REJI (test code = REJI) Returned Telephone Equipment Appraiser ID - ZAC Rosales slightly icteric Lab Interpretation Abnormal (test code = 81158-9) [facility] [id number] 06:18:30 Test Item Value Reference Range Interpretation [...] 347) EGFR (BEAKER) (test 53 mL/min/1.73 ESTIMA ANDRESSA GFR IS code = 1092) sq m NOT ACCURATE CREATININE CLEARANCE IN PREDICTING GLOMERULAR FILTRATION RATE . ESTIMATED GFR I S NOT APPLICABLE FOR DIALYSIS PATIEN TS. Returned Telephone Equipment Appraiser ID - ZAC Tierneyimekorin slightly fqnxyumDVRDGWNHA4171-61-64 06:13:05 Test Item Value Reference Range Interpretation Comments MAGNESIUM (BEAKER) (test code = 2.3 mg/dL 1.6-2.6 627) Returned Telephone Equipment Appraiser ID - ZAC W(CELLAVISION MANUAL DIFF)2021-09-03 14:33:56 [...] CONCENTRATION Decreased (CELLAVISION)(BEAKER) (test code = 3438) Returned Telephone Equipment Appraiser ID - Claudine Rios comments: Slide comments:CBC W/PLT COUNT & AUTO [id number] 14:33:55 Test Item Value Reference Range Interpretation [...] (test code = 413) Hepatitis B surface [id number] 13:30:11 Test Item Value Reference Range Interpretation Comments Hep B S Ab (test code <8.0 See_Comment [Auto mated = 18458-5) message] The system which generated this result transmit andressa reference range : <8.0 mIU/mL. Th e reference range was not used to interpret this result as normal/abnormal . REJI (test code = REJI) Returned Telephone Equipment Appraiser ID - PIAYA L Lab Interpretation Normal (test code = 21377-9) [facility] B surface ymndrffh9880-86-54 13:30:11 Test Item Value Reference Range Interpretation Comments Hep B S Ab (test code <8.0 See_Comment [Auto mated = 87334-8) message] The system which generated this result transmit andressa reference range : <8.0 mIU/mL. Th e reference range was not used to interpret this result as normal/abnormal . REJI (test code = REJI) Returned Telephone Equipment Appraiser ID - PIAYA L Lab Interpretation Normal (test code = 40432-1) [facility] surface lmxbltjw9830-43-03 13:30:11 Test Item Value Reference Range Interpretation Comments Hep B S Ab (test code <8.0 See_Comment [Auto mated = 90946-1) message] The system which generated this result transmit andressa reference range : <8.0 mIU/mL. Th e reference range was not used to interpret this result as normal/abnormal . REJI (test code = REJI) Returned Telephone Equipment Appraiser ID - PIAYA L Lab Interpretation Normal (test code = 49344-5) [facility] B surface [id number] 13:30:11 Test Item Value Reference Range Interpretation Comments Hep B S Ab (test code <8.0 See_Comment [Auto mated = 70052-0) message] The system which generated this result transmit andressa reference range : <8.0 mIU/mL. Th e reference range was not used to interpret this result as normal/abnormal . REJI (test code = REJI) Returned Telephone Equipment Appraiser ID - PIAYA L Lab Interpretation Normal (test code = 97227-9) [facility] SURFACE [id number] 13:30:11 Test Item Value Reference Range Interpretation Comments HEPATITIS B SURFACE ANTIBODY < mIU/mL <8.0 (BEAKER) (test code = 647) Returned Telephone Equipment Appraiser ID - PIAYA LHepatitis A antibody, [id number] 13:23:53 Test Item Value Reference Range Interpretation Comments Hep A IgG (test code = Nonreactive Nonreactive 09779-3) REJI (test code = REJI) Returned Telephone Equipment Appraiser ID - PIAYA L Lab Interpretation (test Normal code = 43317-8) [facility] antibody, [id number] 13:23:53 Test Item Value Reference Range Interpretation Comments Hep A IgG (test code = Nonreactive Nonreactive 64661-9) REJI (test code = REJI) Returned Telephone Equipment Appraiser ID - PIAYA L Lab Interpretation (test Normal code = 53871-3) [facility] antibody, [id number] 13:23:53 Test Item Value Reference Range Interpretation Comments Hep A IgG (test code = Nonreactive Nonreactive 46484-0) REJI (test code = REJI) Returned Telephone Equipment Appraiser ID - PIAYA L Lab Interpretation (test Normal code = 99096-2) [facility] antibody, [id number] 13:23:53 Test Item Value Reference Range Interpretation Comments Hep A IgG (test code = Nonreactive Nonreactive 24414-5) REJI (test code = REJI) Returned Telephone Equipment Appraiser ID - PIAYA L Lab Interpretation (test Normal code = 17675-5) [facility] ANTIBODY, [id number] 13:23:53 Test Item Value Reference Range Interpretation Comments HEPATITIS A IGG ANTIBODY (BEAKER) Nonreactive Nonreactive (test code = 2797) Returned Telephone Equipment Appraiser ID - MARLON LHepatitis B core antibody, [id number] 13:23:52 Test Item Value Reference Range Interpretation Comments Hep B Core Total Ab Nonreactive Nonreactive (test code = 11950-7) REJI (test code = REJI) Returned Telephone Equipment Appraiser ID - MARLON L Lab Interpretation (test Normal code = 90572-9) [facility] C aptruotc8852-35-32 13:23:52 Test Item Value Reference Range Interpretation Comments Hepatitis C Ab (test Nonreactive Nonreactive code = 54467-5) REJI (test code = REJI) Returned Telephone Equipment Appraiser ID - MARLON L Lab Interpretation (test Normal code = 69333-1) [facility] B core antibody, [id number] 13:23:52 Test Item Value Reference Range Interpretation Comments Hep B Core Total Ab Nonreactive Nonreactive (test code = 17563-8) REJI (test code = REJI) Returned Telephone Equipment Appraiser ID - MARLON L Lab Interpretation (test Normal code = 38811-5) [facility] B core antibody, [id number] 13:23:52 Test Item Value Reference Range Interpretation Comments Hep B Core Total Ab Nonreactive Nonreactive (test code = 09368-9) REJI (test code = REJI) Returned Telephone Equipment Appraiser ID - MARLON L Lab Interpretation (test Normal code = 13394-5) [facility] B core antibody, [id number] 13:23:52 Test Item Value Reference Range Interpretation Comments Hep B Core Total Ab Nonreactive Nonreactive (test code = 65367-6) REJI (test code = REJI) Returned Telephone Equipment Appraiser ID - MARLON L Lab Interpretation (test Normal code = 48303-8) [facility] C [id number] 13:23:52 Test Item Value Reference Range Interpretation Comments HEPATITIS C ANTIBODY (BEAKER) Nonreactive Nonreactive (test code = 367) Returned Telephone Equipment Appraiser ID - MARLON LHEPATITIS B CORE ANTIBODY, [id number] 13:23:52 Test Item Value Reference Range Interpretation Comments HEPATITIS B CORE TOTAL ANTIBODY Nonreactive Nonreactive (BEAKER) (test code = 497) Returned Telephone Equipment Appraiser ID - MARLON LHepatitis B surface cfoljiw6900-49-98 13:23:51 Test Item Value Reference Range Interpretation Comments HBsAg Screen (test code Nonreactive Nonreactive = 5195-3) REJI (test code = REJI) Specimen is considered negative for HBsAg. Lab Interpretation (test Normal code = 01833-4) [facility] SURFACE [id number] 13:23:51 Test Item Value Reference Range Interpretation [...] 347) EGFR (BEAKER) (test 39 mL/min/1.73 ESTIMA ANDRESSA GFR IS code = 1092) sq m NOT ACCURATE CREATININE CLEARANCE IN PREDICTING GLOMERULAR FILTRATION RATE . ESTIMATED GFR I S NOT APPLICABLE FOR DIALYSIS PATIEN TS. Returned Telephone Equipment Appraiser ID - PIAYA LSpecimen slightly ccrcjyxKBLTCYLKM4007-60-13 12:58:51 Test Item Value Reference Range Interpretation Comments MAGNESIUM (BEAKER) (test code = 2.1 mg/dL 1.6-2.6 627) Returned Telephone Equipment Appraiser ID - MARLON [id number] 12:58:51 Test Item Value Reference Range Interpretation Comments PHOSPHORUS (BEAKER) (test code = 2.3 mg/dL 2.3-4.7 604) Returned Telephone Equipment Appraiser ID - MARLON LPROTHROMBIN TIME/[id number] 12:56:09 Test Item Value Reference Range Interpretation Comments PROTIME (BEAKER) 23.4 seconds 11.9-14.2 H (test code = 759) INR (BEAKER) (test 2.10 See_Comment [Automat ed message] code = 370) The system [employer] generated this result transmitted ref erence range: <=5.90. The reference range was not used to int erpret this result as normal/abnormal . RECOMMENDED COUMADIN/WARFARIN INR THERAPY RANGESSTANDARD DOSE: 2.0 - 3.0 Includes: PROPHYLAXIS for venous thrombosis, systemic embolization; TREATMENT for venous thrombosis and/or pulmonary embolus.HIGH RISK: Target INR is 2.5-3.5 for patients with mechanical heart valves.Urine [id number] 12:15:06 Test Item Value Reference Range Interpretation Comments Result (test code = 6463-4) No growth [facility] [id number] 12:15:06 Test Item Value Reference Range Interpretation Comments Result (test code = 6463-4) [facility] oiwcjlp9822[facility] 12:15:06 Test Item Value Reference Range Interpretation Comments Result (test code = 6463-4) No growth [facility] [id number] 12:15:06 Test Item Value Reference Range Interpretation Comments Result (test code = 6463-4) No growth [facility] Profile by PCR -ID [id number] 12:43:22 Test Item Value Reference Range Interpretation Comments CAMPYLOBACTER (PCR) Not detected Not detected (test code = 44305-8) PLESIOMONAS SHIGELLOIDES Not detected Not detected (PCR) (test code = 56038-1) SALMONELLA (PCR) (test Not detected Not detected code = 76903-9) YERSINIA ENTEROCOLITICA Not detected Not detected (PCR) (test code = 04183-5) VIBRIO CHOLERAE (PCR) Not detected Not detected (test code = 39985-7) ENTEROAGGREGATIVE E. Not detected Not detected COLI (EAEC) BY PCR (test code = 19165-7) ENTEROPATHOGENIC E. COLI Not detected Not detected (EPEC) BY PCR (test code = 99470-0) ENTEROTOXIGENIC E. COLI Not detected Not detected (ETEC) LT/ST BY PCR (test code = 38349-4) SHIGA-LIKE Not detected Not detected TOXIN-PRODUCING E. COLI (STEC) STX1/STX2 (test code = 54780-0) E. COLI O157 (PCR) (test code = 92468-9) SHIGELLA/ENTEROINVASIVE Not detected Not detected E. COLI (EIEC) BY PCR (test code = 45113-4) CRYPTOSPORIDIUM (PCR) Not detected Not detected (test code = 27973-2) CYCLOSPORA CAYETANENSIS Not detected Not detected (PCR) (test code = 15760-3) ENTAMOEBA HISTOLYTICA Not detected Not detected (PCR) (test code = 87509-3) GIARDIA LAMBLIA (PCR) Not detected Not detected (test code = 64780-8) ADENOVIRUS F 40/41 (PCR) Not detected Not detected (test code = 03398-8) ASTROVIRUS (PCR) (test Not detected Not detected code = 42125-7) NOROVIRUS GI/GII (PCR) Not detected Not detected (test code = 27128-5) ROTAVIRUS A (PCR) (test Not detected Not detected code = 00259-6) SAPOVIRUS (I, II, IV, V) Not detected Not detected BY PCR (test code = 19589-9) VIBRIO Not detected Not detected (PARAHAEMOLYTICUS, VULNIFICUS) (test code = 53939-7) REJI (test code = REJI) Other viruses, parasites and bacteria not targeted by this PCR panel cannot be excluded; therefore clinical correlation and follow up of serology, culture results, and other molecular studies is required. The results are not intended to be used as the sole means for clinical diagnosis or patient management decisions. This sample was tested at the [facility] using the [employer] Gastrointestinal Panel. It is FDA cleared and has been verified and approved by the [facility] for clinical use. This laboratory is CLIA-certified and [employer] ([employer])-accredited to perform high complexity testing. [facility] by PCR -ID [id number] 12:43:22 Test Item Value Reference Range Interpretation Comments CAMPYLOBACTER PCR (test Not detected Not detected code = 02921-2) PLESIOMONAS SHIGELLOIDES Not detected Not detected (PCR) (test code = 09922-0) SALMONELLA (PCR) (test Not detected Not detected code = 40226-8) YERSINIA ENTEROCOLITICA Not detected Not detected (PCR) (test code = 36391-0) VIBRIO CHOLERAE (PCR) Not detected Not detected (test code = 03288-9) ENTEROAGGREGATIVE E. Not detected Not detected COLI (EAEC) BY PCR (test code = 79916-2) ENTEROPATHOGENIC E. COLI Not detected Not detected (EPEC) BY PCR (test code = 52723-5) ENTEROTOXIGENIC E. COLI Not detected Not detected (ETEC) LT/ST BY PCR (test code = 05879-1) SHIGA-LIKE Not detected Not detected TOXIN-PRODUCING E. COLI (STEC) STX1/STX2 (test code = 35290-3) E. COLI O157 (PCR) (test code = 42929-4) SHIGELLA/ENTEROINVASIVE Not detected Not detected E. COLI (EIEC) BY PCR (test code = 28473-2) CRYPTOSPORIDIUM (PCR) Not detected Not detected (test code = 81340-1) CYCLOSPORA CAYETANENSIS Not detected Not detected (PCR) (test code = 96391-8) ENTAMOEBA HISTOLYTICA Not detected Not detected (PCR) (test code = 21827-9) GIARDIA LAMBLIA (PCR) Not detected Not detected (test code = 43367-5) ADENOVIRUS F 40/41 (PCR) Not detected Not detected (test code = 50345-1) ASTROVIRUS (PCR) (test Not detected Not detected code = 69421-8) NOROVIRUS GI/GII (PCR) Not detected Not detected (test code = 70728-9) ROTAVIRUS A (PCR) (test Not detected Not detected code = 03430-8) SAPOVIRUS (I, II, IV, V) Not detected Not detected BY PCR (test code = 12955-0) VIBRIO Not detected Not detected (PARAHAEMOLYTICUS, VULNIFICUS) (test code = 60837-1) REJI (test code = REJI) Other viruses, parasites and bacteria not targeted by this PCR panel cannot be excluded; therefore clinical correlation and follow up of serology, culture results, and other molecular studies is required. The results are not intended to be used as the sole means for clinical diagnosis or patient management decisions. This sample was tested at the [facility] using the [employer] Gastrointestinal Panel. It is FDA cleared and has been verified and approved by the [facility] for clinical use. This laboratory is CLIA-certified and [employer] ([employer])-accredited to perform high complexity testing. [facility] -ID [id number] 12:43:22 Test Item Value Reference Range Interpretation Comments CAMPYLOBACTER PCR (test Not detected Not detected code = 22816-1) PLESIOMONAS SHIGELLOIDES Not detected Not detected (PCR) (test code = 67469-7) SALMONELLA (PCR) (test Not detected Not detected code = 68518-2) YERSINIA ENTEROCOLITICA Not detected Not detected (PCR) (test code = 64066-7) VIBRIO CHOLERAE (PCR) Not detected Not detected (test code = 56610-2) ENTEROAGGREGATIVE E. Not detected Not detected COLI (EAEC) BY PCR (test code = 96532-1) ENTEROPATHOGENIC E. COLI Not detected Not detected (EPEC) BY PCR (test code = 36724-7) ENTEROTOXIGENIC E. COLI Not detected Not detected (ETEC) LT/ST BY PCR (test code = 40358-3) SHIGA-LIKE Not detected Not detected TOXIN-PRODUCING E. COLI (STEC) STX1/STX2 (test code = 56225-8) E. COLI O157 (PCR) (test code = 26003-2) SHIGELLA/ENTEROINVASIVE Not detected Not detected E. COLI (EIEC) BY PCR (test code = 84688-3) CRYPTOSPORIDIUM (PCR) Not detected Not detected (test code = 38131-4) CYCLOSPORA CAYETANENSIS Not detected Not detected (PCR) (test code = 67500-7) ENTAMOEBA HISTOLYTICA Not detected Not detected (PCR) (test code = 69538-0) GIARDIA LAMBLIA (PCR) Not detected Not detected (test code = 08947-7) ADENOVIRUS F 40/41 (PCR) Not detected Not detected (test code = 62318-2) ASTROVIRUS (PCR) (test Not detected Not detected code = 37886-3) NOROVIRUS GI/GII (PCR) Not detected Not detected (test code = 07056-2) ROTAVIRUS A (PCR) (test Not detected Not detected code = 88398-0) SAPOVIRUS (I, II, IV, V) Not detected Not detected BY PCR (test code = 66845-7) VIBRIO Not detected Not detected (PARAHAEMOLYTICUS, VULNIFICUS) (test code = 47574-3) REJI (test code = REJI) Other viruses, parasites and bacteria not targeted by this PCR panel cannot be excluded; therefore clinical correlation and follow up of serology, culture results, and other molecular studies is required. The results are not intended to be used as the sole means for clinical diagnosis or patient management decisions. This sample was tested at the [facility] using the [employer] Gastrointestinal Panel. It is FDA cleared and has been verified and approved by the [facility] for clinical use. This laboratory is CLIA-certified and [employer] (CAP)-accredited to perform high complexity testing. [facility] -ID [id number] 12:43:22 Test Item Value Reference Range Interpretation Comments CAMPYLOBACTER PCR (test Not detected Not detected code = 76224-9) PLESIOMONAS SHIGELLOIDES Not detected Not detected (PCR) (test code = 76136-5) SALMONELLA (PCR) (test Not detected Not detected code = 09628-8) YERSINIA ENTEROCOLITICA Not detected Not detected (PCR) (test code = 67741-4) VIBRIO CHOLERAE (PCR) Not detected Not detected (test code = 07767-7) ENTEROAGGREGATIVE E. Not detected Not detected COLI (EAEC) BY PCR (test code = 65726-0) ENTEROPATHOGENIC E. COLI Not detected Not detected (EPEC) BY PCR (test code = 66219-2) ENTEROTOXIGENIC E. COLI Not detected Not detected (ETEC) LT/ST BY PCR (test code = 18019-2) SHIGA-LIKE Not detected Not detected TOXIN-PRODUCING E. COLI (STEC) STX1/STX2 (test code = 92357-9) E. COLI O157 (PCR) (test code = 31019-5) SHIGELLA/ENTEROINVASIVE Not detected Not detected E. COLI (EIEC) BY PCR (test code = 42351-5) CRYPTOSPORIDIUM (PCR) Not detected Not detected (test code = 12714-4) CYCLOSPORA CAYETANENSIS Not detected Not detected (PCR) (test code = 65625-6) ENTAMOEBA HISTOLYTICA Not detected Not detected (PCR) (test code = 89394-6) GIARDIA LAMBLIA (PCR) Not detected Not detected (test code = 72467-4) ADENOVIRUS F 40/41 (PCR) Not detected Not detected (test code = 79807-3) ASTROVIRUS (PCR) (test Not detected Not detected code = 29261-5) NOROVIRUS GI/GII (PCR) Not detected Not detected (test code = 89621-2) ROTAVIRUS A (PCR) (test Not detected Not detected code = 02251-6) SAPOVIRUS (I, II, IV, V) Not detected Not detected BY PCR (test code = 96319-0) VIBRIO Not detected Not detected (PARAHAEMOLYTICUS, VULNIFICUS) (test code = 34810-6) REJI (test code = REJI) Other viruses, parasites and bacteria not targeted by this PCR panel cannot be excluded; therefore clinical correlation and follow up of serology, culture results, and other molecular studies is required. The results are not intended to be used as the sole means for clinical diagnosis or patient management decisions. This sample was tested at the [facility] using the [employer] Gastrointestinal Panel. It is FDA cleared and has been verified and approved by the [facility] for clinical use. This laboratory is CLIA-certified and [employer] ([employer])-accredited to perform high complexity testing. [facility] BY [id number] 12:43:22 Test Item Value Reference Range Interpretation [...] Not detected BY PCR (test code = 9990991) ENTEROPATHOGENIC E. COLI (EPEC) Not detected Not detected BY PCR (test code = 2791300) ENTEROTOXIGENIC E. COLI (ETEC) Not detected Not detected LT/ST BY PCR (test code = 2311923) SHIGA-LIKE TOXIN-PRODUCING E. Not detected Not detected COLI (STEC) STX1/STX2 (test code = 7201482) E. COLI O157 (PCR) (test code = 7570553) SHIGELLA/ENTEROINVASIVE E. COLI Not detected Not detected (EIEC) BY PCR (test code = 5046318) CRYPTOSPORIDIUM (PCR) (test code Not detected Not [...] Not detected Not detected (test code = 5559702) VIBRIO (PARAHAEMOLYTICUS, Not detected Not detected VULNIFICUS) (test code = 3792201) Other viruses, parasites and bacteria not targeted by this PCR panel cannot be excluded; therefore clinical correlation and follow up of serology, culture results, and other molecular studies is required. The results are not intended to be used as the sole means for clinical diagnosis or patient management decisions. This sample was tested at the [facility] using the [employer] Gastrointestinal Panel. It is FDA cleared and has been verified and approved by the [facility] for clinical use. This [...] CONCENTRATION Decreased (CELLAVISION)(BEAKER) (test code = 3438) Returned Telephone Equipment Appraiser ID - Ishanperla comments: Slide comments:CBC W/PLT COUNT & AUTO [id number] 08:49:57 Test Item Value Reference Range Interpretation [...] (test code = 413) Vitamin B12 and [id number] 07:20:11 Test Item Value Reference Range Interpretation Comments Vitamin B12 (test 1116 pg/mL 213-816 H code = 2-9) Folate (test code = 3.50 ng/mL See_Comment L [Automa andressa 2284-8) message] The system which generated this result transmit andressa reference range : >=7.00. The reference range was not used to interpret this result as normal/abnormal . REJI (test code = REJI) Returned Telephone Equipment Appraiser ID - SHAQUILLE Reynolds Lab Interpretation Abnormal (test code = 53096-0) [facility] [id number] 07:20:11 Test Item Value Reference Range Interpretation Comments Vitamin B12 (test 1116 pg/mL 213-816 H code = 2-9) Folate (test code = 3.50 ng/mL See_Comment L [Automa andressa 2284-8) message] The system which generated this result transmit andressa reference range : >=7.00. The reference range was not used to interpret this result as normal/abnormal . REJI (test code = REJI) Returned Telephone Equipment Appraiser ID - SHAQUILLE M Lab Interpretation Abnormal (test code = 09290-4) [facility] [id number] 07:20:11 Test Item Value Reference Range Interpretation Comments Vitamin B12 (test 1116 pg/mL 213-816 H code = 2132-9) Folate (test code = 3.50 ng/mL See_Comment L [Automa andressa 2284-8) message] The system which generated this result transmit andressa reference range : >=7.00. The reference range was not used to interpret this result as normal/abnormal . REJI (test code = REJI) Returned Telephone Equipment Appraiser ID - SHAQUILLE Reynolds Lab Interpretation Abnormal (test code = 93854-4) [facility] [id number] 07:20:11 Test Item Value Reference Range Interpretation Comments Vitamin B12 (test 1116 pg/mL 213-816 H code = 2132-9) Folate (test code = 3.50 ng/mL See_Comment L [Automa andressa 2284-8) message] The system which generated this result transmit andressa reference range : >=7.00. The reference range was not used to interpret this result as normal/abnormal . REJI (test code = REJI) Returned Telephone Equipment Appraiser ID - SHAQUILLE Reyonlds Lab Interpretation Abnormal (test code = 11993-9) [facility] [id number] 07:20:11 Test Item Value Reference Range Interpretation Comments VITAMIN B12 (BEAKER) 1116 pg/mL 213-816 H (test code = 774) FOLATE (BEAKER) 3.50 ng/mL See_Comment L [Automated message] (test code = 362) The system which generated this result transmitted ref erence range: >=7.00. The reference range was not used to interpr et this result as normal/abnormal . Returned Telephone Equipment Appraiser ID - SHAQUILLE MCOMPREHENSIVE METABOLIC [id number] 06:57:06 Test Item Value Reference Range Interpretation [...] 347) EGFR (BEAKER) (test 45 mL/min/1.73 ESTIMA ANDRESSA GFR IS code = 1092) sq m NOT ACCURATE CREATININE CLEARANCE IN PREDICTING GLOMERULAR FILTRATION RATE . ESTIMATED GFR I S NOT APPLICABLE FOR DIALYSIS PATIEN TS. Returned Telephone Equipment Appraiser ID - SHAQUILLE MSpecimen slightly ictericC-Reactive [id number] 06:55:26 Test Item Value Reference Range Interpretation Comments CRP (test code = 676) 4.64 mg/dL 0.00-0.50 H REJI (test code = REJI) Returned Telephone Equipment Appraiser GINA CORBIN M Lab Interpretation (test Abnormal code = 56379-4) [facility] 06:55:26 Test Item Value Reference Range Interpretation Comments PHOSPHORUS (BEAKER) (test code = 1.8 mg/dL 2.3-4.7 L 604) Returned Telephone Equipment Appraiser ID - SHAQUILLE MC-REACTIVE [id number] 06:55:26 Test Item Value Reference Range Interpretation Comments C-REACTIVE PROTEIN (BEAKER) (test 4.64 mg/dL 0.00-0.50 H code = 676) Returned Telephone Equipment Appraiser ID - SHAQUILLE [id number] 06:55:25 Test Item Value Reference Range Interpretation Comments MAGNESIUM (BEAKER) (test code = 2.3 mg/dL 1.6-2.6 627) Returned Telephone Equipment Appraiser GINA - SHAQUILLE Arriaga, TIBC, % sat. (without ferritin)2021-09-02 06:44:00 Test Item Value Reference Range Interpretation Comments Iron (test code = 2498-4) 28.0 ug/dL 40.0-160.0 L TIBC (test code = 2500-7) 243 ug/dL 250-450 L Iron % Saturation (test 12 % 20-55 L code = 2502-3) REJI (test code = REJI) Returned Telephone Equipment Appraiser ID - SHAQUILLE Reynolds Lab Interpretation (test Abnormal code = 07743-0) [facility], TIBC, % sat. (without ferritin)2021-09-02 06:44:00 Test Item Value Reference Range Interpretation Comments Iron (test code = 2498-4) 28.0 ug/dL 40.0-160.0 L TIBC (test code = 2500-7) 243 ug/dL 250-450 L Iron % Saturation (test 12 % 20-55 L code = 2502-3) REJI (test code = REJI) Returned Telephone Equipment Appraiser ID - SHAQUILLE Reynolds Lab Interpretation (test Abnormal code = 61145-1) [facility], TIBC, % sat. (without ferritin)2021-09-02 06:44:00 Test Item Value Reference Range Interpretation Comments Iron (test code = 2498-4) 28.0 ug/dL 40.0-160.0 L TIBC (test code = 2500-7) 243 ug/dL 250-450 L Iron % Saturation (test 12 % 20-55 L code = 2502-3) REJI (test code = REJI) Returned Telephone Equipment Appraiser ID - SHAQUILLE Reynolds Lab Interpretation (test Abnormal code = 67527-6) [facility], TIBC, % sat. (without ferritin)2021-09-02 06:44:00 Test Item Value Reference Range Interpretation Comments Iron (test code = 2498-4) 28.0 ug/dL 40.0-160.0 L TIBC (test code = 2500-7) 243 ug/dL 250-450 L Iron % Saturation (test 12 % 20-55 L code = 2502-3) REJI (test code = REJI) Returned Telephone Equipment Appraiser ID - SHAQUILLE M Lab Interpretation (test Abnormal code = 14409-0) [facility], [facility]BC, % SAT. (WITHOUT FERRITIN)2021-09-02 06:44:00 Test Item Value Reference Range Interpretation Comments IRON (BEAKER) (test code = 547) 28.0 ug/dL 40.0-160.0 L TOTAL IRON BINDING CAPACITY 243 ug/dL 250-450 L (BEAKER) (test code = 769) IRON % SATURATION (2) (BEAKER) 12 % 20-55 L (test code = 2590) Returned Telephone Equipment Appraiser ID - SHAQUILLE MCT, BRAIN, WITHOUT [id number] 03:54:00Unlisted Reason for Exam - Click Yes and Enter Reason Below->No [facility] 1960 Sex: [...] recommended for further characterization. Signed: Mercy Mccallum [facility] Verified Date/Time: 09/02/2021 03:54:37 U/S, ABDOMINAL, [id number] 03:38:00 Abdomen limited area? Add comment if clarification is needed.->Right upper quadrantReason for exam:->evaluate biliary tree/liver [facility] 1960 Sex: [...] setting of hepatic steatosis. Signed: Dulce Maria Salesort Verified Date/Time: 09/02/2021 03:38:29 Urinalysis w/Microscopic + Reflex to Culture 2021-09-02 02:29:12 Test Item Value Reference Range Interpretation Comments Color, UA (test code Brown = 5778-6) Clarity, UA (test Hazy code = 5767-9) Specific [place], UA 1.029 1.001-1.035 (test code = 5811-5) pH, UA (test code = 6.0 5.0-8.0 5803-2) Protein, UA (test 30 mg/dL Negative A code = 28299-4) Glucose, UA (test Negative Negative code = 365) Ketones, UA (test Negative Negative code = 2514-8) Bilirubin, UA (test Negative Negative code = 93179-7) Blood, UA (test code Small Negative A = 66310-7) Nitrite, UA (test Negative Negative code = 5802-4) Leukocytes, UA (test Moderate Negative A code = 5799-2) Urobilinogen, UA 0.2 mg/dL 0.2-1.0 (test code = 02258-7) RBC, UA (test code = 18 See_Comment [Autom ated 29079-2) message] The system which generated this result transmit andressa reference range : /HPF. The reference range was not used to interpret this result as normal/abnormal . WBC, UA (test code = 36 See_Comment [Autom ated 5821-4) message] The system which generated this result transmit andressa reference range : /HPF. The reference range was not used to interpret this result as normal/abnormal . Bacteria, UA (test Rare code = 87346-3) Mucus (test code = Moderate 8247-9) Squam Epithel, UA 2 See_Comment [Automate d (test code = 07099-0) messag e] The system which generated this result transmit andressa reference range : /HPF. The reference range was not used to interpret this result as normal/abnormal . Hyaline Casts, UA 3 See_Comment [Automate d (test code = 50967-3) messag e] The system which generated this result transmit andressa reference range : /LPF. The reference range was not used to interpret this result as normal/abnormal . Crystals, Urine (test None Seen code = 93550-7) Amorphous Crystals Rare (test code = 19675-1) Specimen Source (test code = 2795) REJI (test code = REJI) Returned Telephone Equipment Appraiser ID - [auto]Returned Telephone Equipment Appraiser ID - tech Lab Interpretation Abnormal (test code = 03700-5) [facility] + Reflex to Culture 2021-09-02 02:29:12 Test Item Value Reference Range Interpretation Comments Color, UA (test code Brown = 5778-6) Clarity, UA (test Hazy code = 5767-9) Specific [place], UA 1.029 1.001-1.035 (test code = 5811-5) pH, UA (test code = 6.0 5.0-8.0 5803-2) Protein, UA (test 30 mg/dL Negative A code = 27902-7) Glucose, UA (test Negative Negative code = 365) Ketones, UA (test Negative Negative code = 2514-8) Bilirubin, UA (test Negative Negative code = 56303-3) Blood, UA (test code Small Negative A = 42963-6) Nitrite, UA (test Negative Negative code = 5802-4) Leukocytes, UA (test Moderate Negative A code = 5799-2) Urobilinogen, UA 0.2 mg/dL 0.2-1.0 (test code = 23375-8) RBC, UA (test code = 18 See_Comment [Autom ated 19327-1) message] The system which generated this result transmit andressa reference range : /HPF. The reference range was not used to interpret this result as normal/abnormal . WBC, UA (test code = 36 See_Comment [Autom ated 5821-4) message] The system which generated this result transmit andressa reference range : /HPF. The reference range was not used to interpret this result as normal/abnormal . Bacteria, UA (test Rare code = 72398-2) Mucus (test code = Moderate 8247-9) Squam Epithel, UA 2 See_Comment [Automate d (test code = 94283-7) messag e] The system which generated this result transmit andressa reference range : /HPF. The reference range was not used to interpret this result as normal/abnormal . Hyaline Casts, UA 3 See_Comment [Automate d (test code = 36718-9) messag e] The system which generated this result transmit andressa reference range : /LPF. The reference range was not used to interpret this result as normal/abnormal . Crystals, Urine (test None Seen code = 55016-9) Amorphous Crystals Rare (test code = 20019-6) Specimen Source (test code = 2795) REJI (test code = REJI) Returned Telephone Equipment Appraiser ID - [auto]Returned Telephone Equipment Appraiser ID - tech Lab Interpretation Abnormal (test code = 25631-6) [facility] + Reflex to Culture 2021-09-02 02:29:12 Test Item Value Reference Range Interpretation Comments Color, UA (test code Brown = 5778-6) Clarity, UA (test Hazy code = 5767-9) Specific [place], UA 1.029 1.001-1.035 (test code = 5811-5) pH, UA (test code = 6.0 5.0-8.0 5803-2) Protein, UA (test 30 mg/dL Negative A code = 21625-9) Glucose, UA (test Negative Negative code = 365) Ketones, UA (test Negative Negative code = 2514-8) Bilirubin, UA (test Negative Negative code = 20584-8) Blood, UA (test code Small Negative A = 01254-4) Nitrite, UA (test Negative Negative code = 5802-4) Leukocytes, UA (test Moderate Negative A code = 5799-2) Urobilinogen, UA 0.2 mg/dL 0.2-1.0 (test code = 63607-4) RBC, UA (test code = 18 See_Comment [Autom ated 33889-9) message] The system which generated this result transmit andressa reference range : /HPF. The reference range was not used to interpret this result as normal/abnormal . WBC, UA (test code = 36 See_Comment [Autom ated 5821-4) message] The system which generated this result transmit andressa reference range : /HPF. The reference range was not used to interpret this result as normal/abnormal . Bacteria, UA (test Rare code = 78407-2) Mucus (test code = Moderate 8247-9) Squam Epithel, UA 2 See_Comment [Automate d (test code = 94674-0) messag e] The system which generated this result transmit andressa reference range : /HPF. The reference range was not used to interpret this result as normal/abnormal . Hyaline Casts, UA 3 See_Comment [Automate d (test code = 78531-5) messag e] The system which generated this result transmit andressa reference range : /LPF. The reference range was not used to interpret this result as normal/abnormal . Crystals, Urine (test None Seen code = 48338-5) Amorphous Crystals Rare (test code = 60314-6) Specimen Source (test code = 2795) REJI (test code = REJI) Returned Telephone Equipment Appraiser ID - [auto]Returned Telephone Equipment Appraiser ID - tech Lab Interpretation Abnormal (test code = 04848-6) [facility] + Reflex to Culture 2021-09-02 02:29:12 Test Item Value Reference Range Interpretation Comments Color, UA (test code Brown = 5778-6) Clarity, UA (test Hazy code = 5767-9) Specific [place], UA 1.029 1.001-1.035 (test code = 5811-5) pH, UA (test code = 6.0 5.0-8.0 5803-2) Protein, UA (test 30 mg/dL Negative A code = 95688-5) Glucose, UA (test Negative Negative code = 365) Ketones, UA (test Negative Negative code = 2514-8) Bilirubin, UA (test Negative Negative code = 87705-0) Blood, UA (test code Small Negative A = 92711-4) Nitrite, UA (test Negative Negative code = 5802-4) Leukocytes, UA (test Moderate Negative A code = 5799-2) Urobilinogen, UA 0.2 mg/dL 0.2-1.0 (test code = 00583-1) RBC, UA (test code = 18 See_Comment [Autom ated 48345-0) message] The system which generated this result transmit andressa reference range : /HPF. The reference range was not used to interpret this result as normal/abnormal . WBC, UA (test code = 36 See_Comment [Autom ated 5821-4) message] The system which generated this result transmit andressa reference range : /HPF. The reference range was not used to interpret this result as normal/abnormal . Bacteria, UA (test Rare code = 93149-1) Mucus (test code = Moderate 8247-9) Squam Epithel, UA 2 See_Comment [Automate d (test code = 02410-3) messag e] The system which generated this result transmit andressa reference range : /HPF. The reference range was not used to interpret this result as normal/abnormal . Hyaline Casts, UA 3 See_Comment [Automate d (test code = 96141-5) rosette garcía] The system which generated this result transmit andressa reference range : /LPF. The reference range was not used to interpret this result as normal/abnormal . Crystals, Urine (test None Seen code = 03815-4) Amorphous Crystals Rare (test code = 99478-0) Specimen Source (test code = 2795) REJI (test code = REJI) Returned Telephone Equipment Appraiser ID - [auto]Returned Telephone Equipment Appraiser ID - tech Lab Interpretation Abnormal (test code = 86997-5) [facility] URINE [id number] 02:29:12 Test Item Value Reference Range Interpretation [...] = 1584) SOURCE(BEAKER) (test code = 2795) Returned Telephone Equipment Appraiser ID - [auto]Returned Telephone Equipment Appraiser ID - Lilliana, CHEST, 1 VIEW, NON [id number] 01:45:00Reason for exam:->leukocytosis, unable to provide historyShould this be performed at the bedside?->Yes [facility] 1960 Sex: [...] acute osseous abnormality. Signed: Dulce Maria Sales [facility] Verified Date/Time: 09/02/2021 01:45:23 CBC W/PLT COUNT & AUTO [id number] 00:20:23 Test Item Value Reference Range Interpretation [...] CONCENTRATION Decreased (CELLAVISION)(BEAKER) (test code = 3438) Returned Telephone Equipment Appraiser ID - Curtis Grullon comments: Slide comments:PT/[id number] 23:44:49 Test Item Value Reference Interpretation Comments Range Protime (test code = 22.8 See_Comment H [Autom ated 5902-2) message] The system which generated this result transmitted reference range : 11.9 - 14.2 seconds. The reference range was not used to interpret this result as normal/abnormal . INR (test code = 2.04 See_Comment [Automated 1161-6) message] The system which generated this result transmitted reference range : <=5.90. The reference range was not used to interpret this result as normal/abnormal . PTT (test code = 35.2 See_Comment [Automated 15641-9) message] The system which generated this result [...] valves. Lab Interpretation Abnormal (test code = 64144-1) [facility]/[id number] 23:44:49 Test Item Value Reference Interpretation Comments [...] PTT (test code = 35.2 See_Comment [Automated 73849-8) message] The system which generated this result [...] valves. Lab Interpretation Abnormal (test code = 37073-7) [facility]PT/[id number] 23:44:49 Test Item Value Reference Interpretation Comments Range Protime (test code = 22.8 See_Comment H [Autom ated 5902-2) message] The system which generated this result transmitted reference range : 11.9 - 14.2 seconds. The reference range was not used to interpret this result as normal/abnormal . INR (test code = 2.04 See_Comment [Automated 3991-6) message] The system which generated this result transmitted reference range : <=5.90. The reference range was not used to interpret this result as normal/abnormal . PTT (test code = 35.2 See_Comment [Automated 72312-2) message] The system which generated this result [...] valves. Lab Interpretation Abnormal (test code = 52115-0) [facility] HospitalPT/[id number] 23:44:49 Test Item Value Reference Interpretation Comments Range Protime (test code = 22.8 See_Comment H [Autom ated 5902-2) message] The system which generated this result transmitted reference range : 11.9 - 14.2 seconds. The reference range was not used to interpret this result as normal/abnormal . INR (test code = 2.04 See_Comment [Automated 5566-6) message] The system which generated this result transmitted reference range : <=5.90. The reference range was not used to interpret this result as normal/abnormal . PTT (test code = 35.2 See_Comment [Automated 91979-2) message] The system which generated this result [...] valves. Lab Interpretation Abnormal (test code = 02279-6) [id number] 23:44:49 Test Item Value Reference Range Interpretation [...] for patients with mechanical heart valves.BASIC METABOLIC [id number] 23:31:12 Test Item Value Reference Range Interpretation [...] 697) EGFR (BEAKER) (test 47 mL/min/1.73 ESTIMA ANDRESSA GFR IS code = 1092) sq m NOT ACCURATE CREATININE CLEARANCE IN PREDICTING GLOMERULAR FILTRATION RATE . ESTIMATED GFR I S NOT APPLICABLE FOR DIALYSIS PATIEN TS. Returned Telephone Equipment Appraiser ID - DBSpecimen slightly tfuxrntWPFSMALRU0888-19-51 23:19:46 Test Item Value Reference Range Interpretation Comments MAGNESIUM (BEAKER) (test code = 1.8 mg/dL 1.6-2.6 627) Returned Telephone Equipment Appraiser ID - [id number] 23:19:46 Test Item Value Reference Range Interpretation Comments PHOSPHORUS (BEAKER) (test code = 1.9 mg/dL 2.3-4.7 L 604) Returned Telephone Equipment Appraiser ID - DBHEPATIC FUNCTION XESSA9033-66-72 23:19:46 Test Item Value Reference Range Interpretation [...] (test code = 14 U/L 6-55 347) Returned Telephone Equipment Appraiser ID - DBSpecimen slightly ictericLactic acid, dlyknt7675-03-06 23:13:03 Test Item Value Reference Range Interpretation Comments Lactate, Venous (test 2.88 mmol/L 0.50-2.20 H code = 2872) REJI (test code = REJI) Returned Telephone Equipment Appraiser ID - DBSpecimen slightly icteric Lab Interpretation (test Abnormal code = 04457-2) [facility], qrbcqd3302-26-29 23:13:03 Test Item Value Reference Range Interpretation Comments Lactate, Venous (test 2.88 mmol/L 0.50-2.20 H code = 2872) REJI (test code = REJI) Returned Telephone Equipment Appraiser ID - DBSpecimen slightly icteric Lab Interpretation (test Abnormal code = 82166-0) [facility], upsalb9951-51-32 23:13:03 Test Item Value Reference Range Interpretation Comments Lactate, Venous (test 2.88 mmol/L 0.50-2.20 H code = 2872) REJI (test code = REJI) Returned Telephone Equipment Appraiser ID - DBSpecimen slightly icteric Lab Interpretation (test Abnormal code = 09301-0) [facility], ziqvlm6110-19-94 23:13:03 Test Item Value Reference Range Interpretation Comments Lactate, Venous (test 2.88 mmol/L 0.50-2.20 H code = 2872) REJI (test code = REJI) Returned Telephone Equipment Appraiser ID - DBSpecimen slightly icteric Lab Interpretation (test Abnormal code = 53782-8) [facility] [id number] 23:13:03 Test Item Value Reference Range Interpretation Comments LACTATE BLOOD VENOUS (2) (BEAKER) 2.88 mmol/L 0.50-2.20 H (test code = 2872) Returned Telephone Equipment Appraiser ID - DBSpecimen slightly ictericPOC-Glucose zecnq5581-23-87 22:47:30 Test Item Value Reference Range Interpretation Comments POC-Glucose Meter (test 106 mg/dL 70-110 : TE STED AT [facility] code = 1538) [address] [place] [address], 770 30: Returned Telephone Equipment Appraiser/Techni sowmya ID = [id number] for ULLATTIL, TAYA K Lab Interpretation (test Normal code = 66746-4) [facility] [id number] 22:47:30 Test Item Value Reference Range Interpretation Comments POC-Glucose Meter (test 106 mg/dL 70-110 : TE ST[facility] AT [facility] code = 1538) [address] [place] [address], 770 30: Returned Telephone Equipment Appraiser/Techni sowmya ID = [id number] for ULLATTIL, TAYA K Lab Interpretation (test Normal code = 32565-3) [facility]-Glucose hcmow1650-72-42 22:47:30 Test Item Value Reference Range Interpretation Comments POC-Glucose Meter (test 106 mg/dL 70-110 : TE ST[facility] code = 1538) [address] [facility], 770 30: Returned Telephone Equipment Appraiser/Techni sowmya ID = [id number] for ULLATTIL, TAYA K Lab Interpretation (test Normal code = 51919-5) [facility]-Glucose [id number] 22:47:30 Test Item Value Reference Range Interpretation Comments POC-Glucose Meter (test 106 mg/dL 70-110 : TE ST[facility] code = 1538) [address] [facility], 770 30: Returned Telephone Equipment Appraiser/Techni sowmya ID = [id number] for ULLATTIL, TAYA K Lab Interpretation (test Normal code = 12484-4) [facility]-GLUCOSE [id number] 22:47:30 Test Item Value Reference Range Interpretation Comments POC-GLUCOSE METER 106 mg/dL 70-110 : TESTED A T [facility] [address] (BEAKER) (test code = [facility], 1538) [address]: Returned Telephone Equipment Appraiser/Techni sowmya ID = [id number] for UL LATTIL, WALE C1Q class 1 & 2 jysygkfr7997-70-41 17:38:21 Test Item Value Reference Range Interpretation Comments Interpretation (test code ADDITIONAL ANTIBODY = 6638832) INFORMATION:DQ7 = DQB1*03:01; DQA1*05:03DQ7 = DQB1*03:19; DQA1*05:05DQ7 = DQB1*03:01; DQA1*06:01DQ9 = DQB1*03:03; DQA1*02:01DQ9 = DQB1*03:03; DQA1*03:02DQ8 = DQB1*03:02; DQA1*03:01DQ8 = DQB1*03:02; DQA1*03:02 Case number (test code = [id number]) C1Q class 1 & 2 antibody See link below for (test code = 7242282) PDF [facility] lung [facility], [facility]/[id number] 19:27:26 Test Item Value Reference Range Interpretation [...] Predicted (test code = 67.9 % 5368) [facility] iieqxde3015-66-65 13:53:30 Test Item Value Reference Range Interpretation Comments POC glucose (test code = 124 mg/dL 65-99 H Ope rator Name: 52111-8) Clint Bustamante RDevice ID: [id number] able : [facility] Notified bottle packer Interpretation (test Abnormal code = 20976-8) [facility] antigen stuwx5162-32-17 11:33:46 Test Item Value Reference Range Interpretation Comments SAB interpretation (test Additional Antibody code = 5950) Information:DQ2=DQB1 *02:01/DQA1*04:01, DQB1*02:01/DQA1*05:0 9YH5=XEE0*04:02/DQA1 *04:55XW0=XID4*03:01 /DPA1*01:03, DPB1*03:01/DPA1*02:0 8GP9=TGX0*04:02/DPA1 *01:07IX98=EIY6*28:0 1/DPA1*01:03 SAB serum ID (test code = [id number] 5866) [facility] serum collection D&T 08/23/2021 05:49 AM (test code = 5867) SAB class I antibody A11,A74,A32,A3,A31,A assignment (test code = 30,A36,A1,A29,A66,A8 5870) 0,A26,A25,A43,A34,A3 3,B82 SAB cPRA class I (test code = 5868) SAB class II antibody DR18,DR17,DR13,DR14, assignment (test code = DR52,DR11,DR8,DQ7,DR 5871) 12,DQ9,DR9,DR7,DQ8,D Q2,DR4,DQ4,DP2,DP14, DP4,DP9,DP10,DP18,DP 20,DP17,DP3,DP28 SAB cPRA class II (test code = 5869) Case number (test code = [id number]) Single antigen beads See link below for (test code = 4604) PDF [facility], hpoxr5910-27-09 20:20:55 Test Item Value Reference Range Interpretation Comments Collection start date, urine (test 08/23/21 code = 66701-7) Collection start time, urine (test 8:40 code = 85114-6) Collection stop date, urine (test 08/24/21 code = 70661-5) Collection stop time, urine (test 8:40 code = 52386-4) Hours of collection (test code = 57389-2) Total volume, urine (test code = 800 mL 21009-2) Urine protein concentration (test 7 mg/dL code = 64728-1) Urine protein excretion (test code = mg/vol 2448) [facility], urine, xlwdt2521-44-12 20:20:52 Test Item Value Reference Range Interpretation Comments Collection start date, urine (test 08/23/21 code = 51418-5) Collection start time, urine (test 8:40 code = 37563-6) Collection stop date, urine (test 08/24/21 code = 78631-0) Collection stop time, urine (test 8:40 code = 12795-3) Hours of collection (test code = 13511-3) Total volume, urine (test code = 800 mL 96661-6) Urine creatinine concentration 114 mg/dL (test code = 88147-0) Urine creatinine excretion (test mg/vol code = 42489-4) Jory OnealARS-CoV-2 (COVID-19) RNA [Presence] in Respiratory specimen by GUSTAVO with probe gkriaujft6291-11-76 20:48:05 Test Item Value Reference Range Interpretation Comments SARS-CoV-2 (COVID-19) RNA Not detected Not-Detected [Presence] in Respiratory specimen by GUSTAVO with probe detection (test code = 89346-7) 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 (test code = 68892-7) Whether the patient has symptoms related to condition of interest (test code = 22218-1) Patient was hospitalized because of this condition (test code = 84884-6) Whether the patient was admitted to intensive care unit (ICU) for condition of interest (test code = 06572-2) Whether patient resides in a congregate care setting (test code = 02751-7) PHI SINGH 12 [id number] 15:33:38 Test Item Value Reference Range Interpretation [...] out Inferior infarct , age undetermined-Abnormal ECG- [facility] transplant avxtyiuqzy6216-34-71 14:27:40 Test Item Value Reference Range Interpretation Comments HLA transplant evaluation See link below for (test code = 74288-9) PDF Lab Report Case number (test code = [id number]) [facility] ED Preliminary Interpretation - Not an Jmzhj5572-43-53 02:54:33 Test Item Value Reference Range Interpretation Comments REJI (test code = REJI) Orlando Balderrama MD 08/17/2021 10:33 [facility] ED Preliminary Interpretation - Not an OrderPerformed by: Orlando Balderrama MDAuthorized by: Orlando Balderrama MD ECG reviewed by ED Physician in the absence of a director of music: yes Interpretation: Interpretation: abnormal Rate: ECG rate: 80 ECG rate assessment: normal Rhythm: Rhythm: sinus rhythm QRS: QRS axis: Normal QRS intervals: NormalST segments: ST segments: NormalOther findings: Other findings: prolonged qTc interval Lab Interpretation Abnormal (test code = 82586-4) [facility] XznktehsEYKU-TwR-2 (COVID-19) RNA [Presence] in Respiratory specimen by GUSTAVO with probe nanjmmddc5204-59-24 23:59:30 Test Item Value Reference Range Interpretation Comments SARS-CoV-2 (COVID-19) RNA Not detected Not-Detected [Presence] in Respiratory specimen by GUSTAVO with probe detection (test code = 24976-3) 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 (test code = 17423-3) Whether the patient has symptoms related to condition of interest (test code = 86375-1) Patient was hospitalized because of this condition (test code = 49203-7) Whether the patient was admitted to intensive care unit (ICU) for condition of interest (test code = 57583-5) Whether patient resides in a congregate care setting (test code = 48432-4) status (test code = 17978-2) YIP JORY MICHAELSARS-CoV-2 (COVID-19) RNA [Presence] in Respiratory specimen by GUSTAVO with probe ywlrbpimv4399-23-16 14:46:31 Test Item Value Reference Range Interpretation Comments SARS-CoV-2 (COVID-19) RNA Not detected Not-Detected [Presence] in Respiratory specimen by GUSTAVO with probe detection (test code = 83615-6) 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 (test code = 49981-0) Whether the patient has symptoms related to condition of interest (test code = 96745-8) Patient was hospitalized because of this condition (test code = 36018-1) Whether the patient was admitted to intensive care unit (ICU) for condition of interest (test code = 58566-9) Whether patient resides in a congregate care setting (test code = 02927-8) status (test code = 63116-3) PHI DEANRS-CoV-2 (COVID-19) RNA [Presence] in Respiratory specimen by GUSTAVO with probe orqfjtzwj2695-12-93 19:52:10 Test Item Value Reference Range Interpretation Comments SARS-CoV-2 (COVID-19) RNA Not detected Not-Detected [Presence] in Respiratory specimen by GUSTAVO with probe detection (test code = 45981-7) 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 (test code = 25856-9) Whether the patient has symptoms related to condition of interest (test code = 24579-1) Patient was hospitalized because of this condition (test code = 80278-6) Whether the patient was admitted to intensive care unit (ICU) for condition of interest (test code = 43510-1) Whether patient resides in a congregate care setting (test code = 29317-4) status (test code = 78233-6) PHI SUTTON-CoV-2 (COVID-19) RNA [Presence] in Respiratory specimen by GUSTAVO with probe spnnzhrkz9988-52-77 19:31:11 Test Item Value Reference Range Interpretation Comments SARS-CoV-2 (COVID-19) RNA Not detected Not-Detected [Presence] in Respiratory specimen by GUSTAVO with probe detection (test code = 72917-2) 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 (test code = 94257-0) Whether the patient has symptoms related to condition of interest (test code = 03077-9) Patient was hospitalized because of this condition (test code = 61609-9) Whether the patient was admitted to intensive care unit (ICU) for condition of interest (test code = 67807-7) Whether patient resides in a congregate care setting (test code = 08191-9) status (test code = 04179-9) YIP VOODOO OUVDMFGQ-AdR-7 (COVID-19) RNA [Presence] in Respiratory specimen by GUSTAVO with probe yfyacpuxd9421-55-34 02:26:38 Test Item Value Reference Range Interpretation Comments SARS-CoV-2 (COVID-19) RNA Not detected Not-Detected [Presence] in Respiratory specimen by GUSTAVO with probe detection (test code = 65573-9) YIP VOODOO SXZXWGDD-UaW-3 (COVID-19) RNA [Presence] in Respiratory specimen by GUSTAVO with probe knbuxmeqc4696-19-39 21:10:32 Test Item Value Reference Range Interpretation Comments SARS-CoV-2 (COVID-19) RNA Not detected Not-Detected [Presence] in Respiratory specimen by GUSTAVO with probe detection (test code = 01991-3) YIP VOODOO AJSKQPAI-PqT-8 (COVID-19) RNA [Presence] in Respiratory specimen by GUSTAVO with probe wdkhigsif2581-20-35 19:03:37 Test Item Value Reference Range Interpretation Comments SARS-CoV-2 (COVID-19) RNA Not detected Not-Detected [Presence] in Respiratory specimen by GUSTAVO with probe detection (test code = 51635-4) YIP VOODOO PZYLYMIB-QsK-1 (COVID-19) RNA [Presence] in Respiratory specimen by GUSTAVO with probe xdwyxolrk6744-43-37 05:36:17 Test Item Value Reference Range Interpretation Comments SARS-CoV-2 (COVID-19) RNA Not detected Not-Detected [Presence] in Respiratory specimen by GUSTAVO with probe detection (test code = 61063-2) YIP VOODOO ZXWPONVM-FoD-2 (COVID-19) IgG+IgM Ab [Presence] in Serum or Plasma by Fmyreirwlxt7284-02-11 09:52:00 Test Item Value Reference Range Interpretation Comments SARS-CoV-2 (COVID-19) IgG+IgM Ab Not detected [Presence] in Serum or Plasma by Immunoassay (test code = 46523-7) YIP VOODOO FVENQLDX-QsB-2 (COVID-19) RNA [Presence] in Respiratory specimen by GUSTAVO with probe wqovdoeim9231-55-65 04:46:40 Test Item Value Reference Range Interpretation Comments SARS-CoV-2 (COVID-19) RNA [Presence] Detected Not-Detected in Respiratory specimen by GUSTAVO with probe detection (test code = 66113-6) YIP VOODOO AIRESKHN-RtK-9 (COVID-19) RNA [Presence] in Respiratory specimen by GUSTAVO with probe caehohwcb4770-32-09 00:55:48 Test Item Value Reference Range Interpretation Comments SARS-CoV-2 (COVID-19) RNA Not detected Not-Detected [Presence] in Respiratory specimen by GUSTAVO with probe detection (test code = 63825-3) HPI MICHAELSARS-CoV-2 (COVID-19) RNA [Presence] in Respiratory specimen by GUSTAVO with probe wddguyyao1464-34-07 08:17:26 Test Item Value Reference Range Interpretation Comments SARS-CoV-2 (COVID-19) RNA Not detected Not-Detected [Presence] in Respiratory specimen by GUSTAVO with probe detection (test code = 03417-8) PHI MICHAELSARS-CoV-2 (COVID-19) RNA [Presence] in Respiratory specimen by GUSTAVO with probe lkwztnbgo8920-43-89 00:04:18 Test Item Value Reference Range Interpretation Comments SARS-CoV-2 (COVID-19) RNA Not detected Not-Detected [Presence] in Respiratory specimen by GUSTAVO with probe detection (test code = 92897-1) PHI DEANRS-CoV-2 (COVID-19) RNA [Presence] in Respiratory specimen by GUSTAVO with probe ieiubzxtx5368-52-31 04:41:17 Test Item Value Reference Range Interpretation Comments SARS-CoV-2 (COVID-19) RNA Not detected Not-Detected [Presence] in Respiratory specimen by GUSTAVO with probe detection (test code = 78851-7) YIP JORY DEANRS-CoV-2 (COVID-19) RNA [Presence] in Respiratory specimen by GUSTAVO with probe szncrdoep5743-21-61 04:13:39 Test Item Value Reference Range Interpretation Comments SARS-CoV-2 (COVID-19) RNA Not detected Not-Detected [Presence] in Respiratory specimen by GUSTAVO with probe detection (test code = 21715-3) PHI MICHAEL
[2023-03-22] MEDS ORDERED: MORPHINE 4 MG/ML SYR ONE (21:07)
[2023-03-22] MEDS ORDERED: ONDANSETRON 4 MG/2 ML VIAL ONE (21:07)
[2023-03-22 21:42] LABS: Specific Gravity 1.019 (1.005-1.030); Urine Bacteria None Seen /HPF (<20); Urine Bilirubin NEGATIVE (Negative); Urine Blood Negative (Negative); Urine Clarity Clear (Clear); Urine Color Light-Yellow (Yellow); Urine Glucose NEGATIVE (Negative); Urine Protein 1+ (Negative); Urine RBC <5 /HPF (None Seen); Urine Urobilinogen Normal (Normal)
--- NOTE | 2023-03-22 21:50 | RAD REPORT ---
EXAM DESCRIPTION: RAD - Chest Single View - 03/22/2023 9:43 pm CLINICAL HISTORY: fall Chest pain. COMPARISON: <Comparisons> FINDINGS: Portable technique limits examination quality. The lungs are grossly clear. The heart is normal in size. No displaced fractures. IMPRESSION: No acute intrathoracic process suspected.
--- NOTE | 2023-03-22 21:53 | RAD REPORT ---
EXAM DESCRIPTION: RAD - Humerus Right - 03/22/2023 9:43 pm CLINICAL HISTORY: PAIN COMPARISON: Humerus Right dated 03/11/2023 FINDINGS: Nondisplaced fracture of the greater tuberosity of the humeral head. No dislocation is see n.
--- NOTE | 2023-03-22 21:54 | RAD REPORT ---
EXAM DESCRIPTION: RAD - Elbow Right 3 View - 03/22/2023 9:43 pm CLINICAL HISTORY: PAIN COMPARISON: <Comparisons> FINDINGS: No fracture or dislocation is seen.
--- NOTE | 2023-03-22 21:55 | RAD REPORT ---
EXAM DESCRIPTION: RAD - Forearm Right - 03/22/2023 9:43 pm CLINICAL HISTORY: PAIN COMPARISON: <Comparisons> FINDINGS: No fracture or dislocation is seen.
[2023-03-22 22:09] LABS: Potassium 4.5 mEq/L (3.5-5.1)
--- NOTE | 2023-03-22 22:09 | RAD REPORT ---
EXAM DESCRIPTION: CT - CTHCSPWOC - 03/22/2023 10:01 pm CLINICAL HISTORY: Trauma, head and neck injury. fall COMPARISON: Head C Spine Mpr Wo Con dated 03/11/2023; Head C Spine Mpr Wo Con dated 03/08/2023; Thorac ic Spine W/o Cont dated 08/26/2020; Head C Spine Mpr Wo Con dated 08/26/2020 TECHNIQUE: Axial 5 mm thick images of the head were obtained. Axial 2 mm thick images of the cervical spine were obtained with sagittal and coronal reconstruction images generated and reviewed. All CT scans are performed using dose optimization technique as appropriate and may include automated exposure control or mA/KV adjustment according to patient size. FINDINGS: CT HEAD WITHOUT CONTRAST: No acute hemorrhage, hydrocephalus or extra-axial collection is identified.No areas of brain edema or midline shift. 2 cm mucous retention cyst right maxillary antrum.The paranasal sinuses and mastoids are clear otherw ise.The calvarium is intact. CT CERVICAL SPINE WITHOUT CONTRAST: No fracture or subluxation.Moderate cervical degenerative changes.No prevertebral soft tissues swelli ng is identified. IMPRESSION: No acute intracranial or cervical spine findings.
[2023-03-22 22:19] LABS: Absolute Lymphocytes (CBC) 0.5 K/uL (0.7-4.9); Hematocrit 32.4 % (36.0-45.0); Lymphocytes % 6.1 % (15.3-44.8); MCV 100.5 fL (80-100); Platelets 106 thou/uL (152-406); RBC Red Blood Cell Count 3.23 M/uL (3.86-4.86)
[2023-03-22] MEDS ORDERED: HYDROMORPHONE HCL 1 MG/ML INJ ONE (23:23)
--- NOTE | 2023-03-22 23:58 | ER ---
Nurse's Notes [facility] Name: Bella Barron Age: 62 yrs Sex: Female : 1960 Arrival Date: 03/22/2023 Time: 19:56 Bed 13 Private MD: Jairo Aceves Diagnosis: Fall on same level, unspecified;Fracture of greater tuberosity of humerus Presentation: 03/22 20:00 Chief complaint: Patient states: Right arm pain, presents with a sling in place, states nj1 she fell and broke it a week ago. Fell today again, caught herself with her injured arm. Took 2 Tylenol this morning after the fall. Coronavirus screen: Vaccine status: Patient reports receiving the 2nd dose of the covid vaccine. Ebola Screen: Patient denies travel to an Ebola-affected area in the 21 days before illness onset. Initial Sepsis Screen: Does the patient meet any 2 criteria? HR > 90 bpm. No. Patient's initial sepsis screen is negative. Does the patient have a suspected source of infection? No. Patient's initial sepsis screen is negative. 20:00 Method Of Arrival: Wheelchair nj1 20:00 Risk Assessment: Do you want to hurt yourself or someone else? Patient reports no [facility] desire to harm self or others. Onset of symptoms was March 22, 2023. 20:00 Acuity: OLEG 3 nj1 Historical: - Allergies: 20:02 Iodine; nj1 20:02 Promethazine; nj1 20:02 Ciprofloxacin; nj1 20:02 ceftriaxone; nj1 20:02 EGG/POULTRY; nj1 20:02 LACTASE; nj1 - PMHx: 20:02 Crohn's Disease; cirrhosis of liver; hypotension; kidney disease; trach removed Jun; Liver transplant (Jul 2022); - PSHx: 20:02 Bowel resection; Cholecystectomy; Colectomy; nj1 - Immunization history:: Client reports receiving the 2nd dose of the Covid vaccine. - Social history:: Smoking status: Patient reports the use of cigarette tobacco products, smokes one pack cigarettes per day. Screenin:07 [facility] ED Fall Risk Assessment (Adult) History of falling in the last 3 months, mb9 including since admission Yes- single mechanical fall (1 pt) Confusion or Disorientation No (0 pts) Intoxicated or Sedated No (0 pts) Impaired Gait No (0 pts) Mobility Assist Device Used No (0 pt) Altered Elimination No (0 pt) Score/Fall Risk Level 0 - 2 = Low Risk Oriented to surroundings, Maintained a safe environment, Educated pt \T\ family on fall prevention, incl call for assistance when getting out of bed. Assessment: 20:19 General: Appears in no apparent distress. Behavior is calm, cooperative. Pain: mb9 Complains of pain in right arm Pain does not radiate. Pain currently is 10 out of 10 on a pain scale. Quality of pain is described as throbbing. Neuro: Lopez Agitation-Sedation Scale (RASS): 0 - Alert and Calm Level of Consciousness is awake, alert, obeys commands, Oriented to person, place, time, situation, Appropriate for age. Cardiovascular: Patient's skin is warm and dry. Respiratory: Airway is patent Respiratory effort is even, unlabored, Respiratory pattern is regular, symmetrical, Breath sounds are clear bilaterally. Derm: Skin is pink, warm \T\ dry. Musculoskeletal: Range of motion: limited in right shoulder and right elbow. 21:56 Reassessment: pt taken to CT via stretcher. mb9 21:56 Reassessment: Patient and/or family updated on plan of care and expected duration. Pain mb9 level reassessed. Patient is alert, oriented x 3, equal unlabored respirations, skin warm/dry/pink. Patient states symptoms have improved. 22:53 Reassessment: No changes from previously documented assessment. Patient and/or family mb9 updated on plan of care and expected duration. Pain level reassessed. Patient is alert, oriented x 3, equal unlabored respirations, skin warm/dry/pink. Vital Signs: 20:00 BP 115 / 72; Pulse 112; Resp 18; Temp 98.8(O); Pulse Ox 97% ; Weight 68.49 kg; Height 4 nj1 ft. 11 in. ; Pain 8/10; 20:58 BP 115 / 61; Pulse 74; Resp 18; Pulse Ox 100% on R/A; mb9 21:47 BP 145 / 98; Pulse 100; Resp 18; Pulse Ox 97% on R/A; Pain 10/10; mb9 20:00 Body Mass Index 30.50 (68.49 kg, 149.86 cm) nj 20:00 Pain Scale: Adult nj1 21:47 Pain Scale: Adult mb9 ED Course: 19:57 Patient arrived in ED. rg4 19:57 Jairo Aceves MD is Private Physician. rg4 20:00 [facility] cp 20:00 Michoacano Alegria MD is Attending Physician. cp 20:04 Arm band placed on left wrist. nj1 20:06 Triage completed. nj1 20:07 Mary Ann Daniel RN is Primary Nurse. mb9 20:08 Placed in gown. Bed in low position. Call light in reach. Side rails up X 1. Client mb9 placed on continuous cardiac and pulse oximetry monitoring. NIBP monitoring applied. 20:09 Attending Physician role handed off by Michoacano Alegria MD [facility] 20:09 James Rossi MD is Attending Physician. [facility] 21:30 Missed attempt(s): 22 gauge in left antecubital area. Bleeding controlled, band aid mb9 applied, catheter tip intact. 21:33 Urinalysis w/ reflexes Sent. mb9 21:45 XRAY Chest (1 view) In Process Unspecified. EDMS 21:45 XRAY Humerus RIGHT In Process Unspecified. EDMS 21:45 XRAY Elbow RIGHT 3 view In Process Unspecified. EDMS 21:45 XRAY Forearm RIGHT In Process Unspecified. EDMS 22:03 CT Head C Spine In Process Unspecified. EDMS 23:57 Clinton Mark MD is Referral Physician. 08 00:11 No provider procedures requiring assistance completed. IV discontinued, intact, mb9 bleeding controlled, No redness/swelling at site. Pressure dressing applied. Administered Medications: 03/22 21:47 Drug: morphine IVP or IV 4 mg Route: IVP; Infused Over: 4 mins; Site: left upper arm; mb9 21:55 Follow up: Response: No adverse reaction mb9 21:47 Drug: Ondansetron IVP 4 mg Route: IVP; Site: left upper arm; mb9 21:55 Follow up: Response: No adverse reaction mb9 23:27 Drug: HYDROmorphone IVP 1 mg Route: IVP; Site: left upper arm; mb9 23:35 Follow up: Response: No adverse reaction mb9 Medication: 20:08 VIS not applicable for this client. mb9 Outcome: 23:58 Discharge ordered by MD. sykes 03/23 00:11 Discharged to home ambulatory. mb9 Condition: stable Discharge instructions given to patient, Instructed on discharge instructions, follow up and referral plans. Demonstrated understanding of instructions, follow-up care. 00:11 Patient left the ED. mb9 Signatures: Dispatcher [employer] EDJames Lubin MD MD cha Page, Corey, PA PA Merle Oh rg4 Mary Ann Daniel RN RN mb9 Alee Maki RN RN nj1 Corrections: (The following items were deleted from the chart) 03/22 20:06 20:00 Initial Sepsis Screen: Does the patient meet any 2 criteria? No. Patient's nj1 initial sepsis screen is negative. Does the patient have a suspected source of infection? No. Patient's initial sepsis screen is negative. nj1 : 20:00 68.49 kg; Height 4 ft. 11 in.; BMI: 30.5; Pain 8/10, Adult; nj1 nj1
--- NOTE | 2023-03-22 23:59 | EDPHYS ---
Physician Documentation [facility] Name: Bella Barron Age: 62 yrs Sex: Female : 1960 Arrival Date: 03/22/2023 Time: 19:56 Bed 13 Private MD: Jairo Aceves ED Physician James Rossi HPI: 03/22 21:00 This 62 yrs old Female presents to ER via Wheelchair with complaints of Arm Injury. cp 21:00 The patient or guardian complains of pain. The complaints affect the anterior aspect of cp right shoulder, right upper arm and right forearm. Context: Patient presents to ED with c/o increased right arm pain after fall today. No LOC. Patient seen recently in this ED after fall and suffering fracture of right shoulder. PMHX significant for liver disease, renal transplant, kidney disease. Associated signs and symptoms: Pertinent negatives: decreased range of motion, deformity, numbness, LOC. Historical: - Allergies: 20:02 Iodine; nj1 20:02 Promethazine; nj1 20:02 Ciprofloxacin; nj1 20:02 ceftriaxone; nj1 20:02 EGG/POULTRY; nj1 20:02 LACTASE; nj1 - PMHx: 20:02 Crohn's Disease; cirrhosis of liver; hypotension; kidney disease; trach removed Jun; Liver transplant (Jul 2022); - PSHx: 20:02 Bowel resection; Cholecystectomy; Colectomy; nj1 - Immunization history:: Client reports receiving the 2nd dose of the Covid vaccine. - Social history:: Smoking status: Patient reports the use of cigarette tobacco products, smokes one pack cigarettes per day. ROS: 21:05 Constitutional: Negative for body aches, chills, fever, poor PO intake. cp 21:05 Eyes: Negative for injury, pain, redness, and discharge. cp 21:05 Cardiovascular: Negative for chest pain. 21:05 Respiratory: Negative for cough, shortness of breath, wheezing. 21:05 Abdomen/GI: Negative for abdominal pain, vomiting, diarrhea, constipation. 21:05 MS/extremity: Positive for pain, of the right arm and right shoulder, Negative for decreased range of motion, deformity. 21:05 Neuro: Negative for altered mental status, dizziness, headache, numbness, weakness. 21:05 All other systems are negative. Exam: 21:10 Constitutional: The patient appears in no acute distress, alert, awake, cp non-diaphoretic, non-toxic, well developed, well nourished, uncomfortable. 21:10 Head/Face: Normocephalic, atraumatic. cp 21:10 Eyes: Periorbital structures: appear normal, Conjunctiva: normal, no exudate, no injection, Sclera: no appreciated abnormality, Lids and lashes: appear normal, bilaterally. 21:10 ENT: External ear(s): are unremarkable, Nose: is normal, Mouth: Lips: moist, Oral mucosa: pink and intact, moist, Posterior pharynx: is normal, airway is patent, no erythema, no exudate. 21:10 Neck: C-spine: vertebral tenderness, is not appreciated, crepitus, is not appreciated. 21:10 Chest/axilla: Inspection: normal, Palpation: crepitus, is not appreciated, tenderness, is not appreciated. 21:10 Cardiovascular: Rate: tachycardic, Rhythm: regular. 21:10 Respiratory: the patient does not display signs of respiratory distress, Respirations: normal, no use of accessory muscles, no retractions, labored breathing, is not present, Breath sounds: are clear throughout, no decreased breath sounds, no stridor, no wheezing. 21:10 Abdomen/GI: Inspection: abdomen appears normal, Palpation: abdomen is soft and non-tender, in all quadrants. 21:10 Back: vertebral tenderness, is not appreciated. 21:10 Musculoskeletal/extremity: Extremities: grossly normal except: noted in the right elbow and right shoulder and right upper arm: pain, tenderness, There is no evidence of decreased ROM, deformity, ROM: limited passive range of motion due to pain, in the right shoulder and right elbow, Pulses: noted to be 2+ in the right radial artery, the right shoulder Severe pain noted. 21:10 Neuro: Orientation: to person, place \T\ time. Mentation: is normal. Vital Signs: 20:00 BP 115 / 72; Pulse 112; Resp 18; Temp 98.8(O); Pulse Ox 97% ; Weight 68.49 kg; Height 4 nj1 ft. 11 in. ; Pain 8/10; 20:58 BP 115 / 61; Pulse 74; Resp 18; Pulse Ox 100% on R/A; mb9 21:47 BP 145 / 98; Pulse 100; Resp 18; Pulse Ox 97% on R/A; Pain 10/10; mb9 20:00 Body Mass Index 30.50 (68.49 kg, 149.86 cm) nj1 20:00 Pain Scale: Adult nj1 21:47 Pain Scale: Adult mb9 MDM: 20:12 Patient medically screened. david 21:00 Differential diagnosis: dislocation, open fracture, closed fracture, contusion. cp 23:57 Data reviewed: vital signs, nurses notes, lab test result(s), radiologic studies, CT cp scan, plain films. 23:57 Consideration of Admission/Observation Escalation of care including cp admission/observation considered. I considered the following discharge prescriptions or medication management in the emergency department Medications were administered in the Emergency Department. See MAR. Care significantly affected by the following chronic conditions: Chronic Kidney Disease, Liver Disease. Counseling: I had a detailed discussion with the patient and/or guardian regarding: the historical points, exam findings, and any diagnostic results supporting the discharge/admit diagnosis, lab results, radiology results, the need for outpatient follow up, a orthopedic surgeon, a painter spring, to return to the emergency department if symptoms worsen or persist or if there are any questions or concerns that arise at home. Response to treatment: the patient's symptoms have markedly improved after treatment, and as a result, I will discharge patient. ED course: VSS. Pain improved with meds. Labs reviewed and no significant change in kidney function tests. Will discharge to home for continued monitoring. 03/22 20:52 Order name: Basic Metabolic Panel; Complete Time: 22:46 cp 03/22 22:46 Interpretation: Normal except: GLUC 258; BUN 65; CRE 3.59; GFR 14. cp 03/22 20:52 Order name: CBC with Diff; Complete Time: 22:46 cp 03/22 22:47 Interpretation: Normal except: RBC 3.23; HGB 10.9; HCT 32.4; MCV 100.5; PLT 106; RDW cp 19.3; CARIN% 91.3; LYM% 6.1; MN% 2.1; LYMA 0.5. 03/22 20:52 Order name: Type And Screen; Complete Time: 22:46 cp 03/22 20:52 Order name: Urinalysis w/ reflexes; Complete Time: 22:46 cp 03/22 20:52 Order name: XRAY Chest (1 view); Complete Time: 22:46 cp 03/22 20:52 Order name: CT Head C Spine; Complete Time: 22:46 cp 03/22 20:52 Order name: XRAY Humerus RIGHT; Complete Time: 22:46 cp 03/22 20:52 Order name: XRAY Elbow RIGHT 3 view; Complete Time: 22:46 cp 03/22 20:52 Order name: XRAY Forearm RIGHT; Complete Time: 22:46 03/22 20:52 Order name: Labs collected and sent; Complete Time: 21:41 03/22 21:54 Order name: Misc. Order: RECOLLECT LAVENDER TOP; Complete Time: :23 rv1 Administered Medications: 21:47 Drug: morphine IVP or IV 4 mg Route: IVP; Infused Over: 4 mins; Site: left upper arm; mb9 21:55 Follow up: Response: No adverse reaction mb9 21:47 Drug: Ondansetron IVP 4 mg Route: IVP; Site: left upper arm; mb9 21:55 Follow up: Response: No adverse reaction mb9 23:27 Drug: HYDROmorphone IVP 1 mg Route: IVP; Site: left upper arm; mb9 23:35 Follow up: Response: No adverse reaction mb9 Disposition Summary: 03/22/23 23:58 Discharge Ordered Location: Home cp Problem: an ongoing problem cp Symptoms: have improved cp Condition: Stable cp Diagnosis - Fall on same level, unspecified cp - Fracture of greater tuberosity of humerus cp Followup: cp - With: Clinton Mark MD - When: 2 - 3 days - Reason: right humerus fracture Discharge Instructions: - Discharge Summary Sheet cp - Fall Prevention in the Home, Adult cp - Humerus Fracture Treated With Immobilization cp Forms: - Medication Reconciliation Form cp - Thank You Letter cp - Antibiotic Education cp - Prescription Opioid Use cp - Patient Portal Instructions cp - Leadership Thank You Letter cp Signatures: Dispatcher [employer] James Finnegan MD MD cha Page, Corey, PA PA cp Mary Ann Daniel RN RN mb9 Britany Pascual rv1 Alee Maki RN RN nj1
[2023-03-23 00:47] VITALS: TEMP 98.8; O2SAT 97
[2023-03-23 00:49] VITALS: BP 145/98
== END 2023-03-23 00:11 | disposition home or self-care (01) ==
LOC: ER 19:56
DX: S42.251A Displaced fracture of greater tuberosity of right humerus, initial encounter for closed fracture (principal); W18.30XA Fall on same level, unspecified, initial encounter; N28.9 Disorder of kidney and ureter, unspecified; F17.210 Nicotine dependence, cigarettes, uncomplicated; Z88.1 Allergy status to other antibiotic agents; Z88.8 Allergy status to other drugs, medicaments and biological substances; Z91.012 Allergy to eggs; Z91.018 Allergy to other foods; Z91.048 Other nonmedicinal substance allergy status; Z94.4 Liver transplant status
CPT/HCPCS: 85025; 81001; 80048; 36415; 86900; 86850; 86901; 70450; 72125; 71045; 73080; 73090; 73060; 96375; 96374; 99284; J1170; J2405

== ENCOUNTER 2023-04-05 17:26 | Emergency (ER) | payer OTHER ==
--- OUTSIDE RECORDS SUMMARY | 2023-04-05 17:44 | XMS REPORT | Continuity of Care Document ---
:1960 Author Organization [facility] t Address [address] [facility] [address] [place] [address] Care Team Providers Name Role Phone Eldernata Calos Bustamante Primary Care Physician [phone] Fernando Man Attending Clinician Unavailable RIANA [...] SALLY AGUDELO Attending Clinician Unavailable Doctor Unassigned, [place] Attending Clinician Unavailable Dashawn FRANKLIN, Mercy Robison Attending Clinician Cam LAMAR, Libby Attending Clinician LIBBY LEVY Attending Clinician Unavailable Rafael FRANKLIN, Kendy Dalal Attending Clinician [phone] KENDY HALL Attending Clinician Unavailable Silvio FRANKLIN, Dawna Attending Clinician Isabella FRANKLIN, Zara Stevenson Attending Clinician [phone] Vj FRANKLIN, Shiela Man Attending Clinician [...] Clinician Unavailable Wild Kovacs DO Attending Clinician [phone] Cliff Levy MD Attending Clinician MD CALOS GARCIA Attending Clinician Unavailable Freedom Gutierrez DO Attending Clinician Robby Perez MD Attending Clinician [phone] MD HERIBERTO YORK Attending Clinician Unavailable [...] Expiration Date S pedro MEDICARE A B [id number] 2015 00:00:00 GENERIC MEDICAID [id number] 2021 HMO 00:00:00 WELLMED/UHC DUAL [id number] 2022 COMP HMO D SNP 00:00:00 LEACH [id number] 2022 HEALTHCARE STAR 00:00:00 PLUS MEDICAID [place] [id number] 2018 [place] 00:[place]:00 MEDICARE PART A [id number] 2015 \\T\\ B 00:00:00 [facility] [id number] Common [facility] MEDICARE NOVITAS [id number] 2015 Common 00:00:00 [facility] [id number] [facility] MEDICARE NOVITAS [id number] 2015 Common 00:00:[address] [facility] MEDICARE NOVITAS [id number] 2015 Common 00:00:00 [facility] [id number] Common [facility] MEDICARE NOVITAS [id number] 2015 Common 00:00:00 [facility] [id number] Common [facility] [id number] Common [facility] MEDICARE NOVITAS [id number] 2015 Common 00:00:00 [facility] [id number] [facility] MEDICARE NOVITAS [id number] 2015 Common 00:00:00 [facility] MEDICARE NOVITAS [id number] 2015 Common 00:00:00 [facility] [id number] Common Spirit [facility] MEDICARE NOVITAS [id number] 2015 Common 00:00:00 [facility] [id number] [facility] MEDICARE NOVITAS [id number] 2015 Common 00:00:00 [facility] [id number] [facility] Problems Condition Condition Condition Status Onset Resolution Last Treating Co mments Source Name Details Category Date Date Treatment Clinician Date Altered Altered Disease Active [facility] mental mental 09-02 [facility] status status 00:00: Medical 00 Center SBP [...] Added automatic ally from request for surgery [id number] Chronic Chronic Disease Active 2020-08 Methodi kidney [...] nivers ia ia 03-06 ity of 00:00: [place] [id number] Medical Branch Abdominal Abdominal Disease Active Met [...] Added automatic ally from request for surgery [id number] Persistent Persistent Disease Active M ethodi depressive depressive 2-28 st disorder disorder 00:00: Hospit a 00 l 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 2-02 it y of athy athy 00:00: [address] Hepatic Hepatic Disease Active 2015-08 Methodi encephalop encephalop 1-15 st athy athy 00:00: Hospita 00 l Thrombocyt Thrombocyt Disease Active M ethodi openia openia 05-04 00:00: Hospita 00 l Malnutriti Malnutriti Disease Active M ethodi on on 05-04 00:00: Hospita 00 l Right Right Disease Active Univers shoulder shoulder 4-25 ity of pain pain 00:00: [facility] Anxiety Anxiety Disease Active Univers and and 4- [place] depression [place] [facility] Rectal Rectal Disease Active 2014-08 Univers bleed bleed 2- ity of 00:00: [address] Cirrhosis Cirrhosis Disease Recurre [facility] Crohn Crohn Disease Recurre [facility] disease disease [facility] [id number] Secondary Problem Comm on esophageal Spirit varices - [facility]I without [facility] bleeding [facility] [id number] Portal Problem Common hypertensi Spirit on - [facility] [id number] 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 Spirit lar - CHI intrahepat [facility] portosyste Medica l jacqueline shunt) [place] [id number] MCFARLANE Problem Common (nonalcoho Spirit lic - CHI steatohepa [facility]) [facility] [id number] End stage Problem Com mon liver Spirit disease - [facility] [id number] Unspecifie Problem Co mmon d Spirit cirrhosis - CHI of liver [facility] Cirrhosis Non-alcoho Problem Co mmon - lic Spirit non-alcoho cirrhosis - C HI lic [facility] 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 Spir it of liver - CHI without ascites [facility] Fatigue Fatigue Problem Common Spirit - [facility] Chronic Chronic Problem Common pain pain Spirit - [facility] Anxiety Anxiety Problem Common Spirit - [facility] Depression Depression Problem C ommon Spirit - [facility] Kidney Kidney Problem Common stone stone [facility] Thrombocyt Thrombocyt Problem C [facility] openia openia [facility] Bipolar Bipolar Problem Common disorder disorder [facility] Restless Restless Problem Commo n legs legs Spirit syndrome syndrome - [facility] [id number] Inflammato Problem Com mon ry bowel Spirit disease [facility] [id number] Incontinen Problem Com mon ce of Spirit feces, - [facility] unspecifie St d fecal [facility] incontinen Medica l ce type Center Body mass BMI Problem Common index 40+ 40.0-44.9, Spi rit - morbidly adult - [facility] obese [facility] Allergic Seasonal Problem Commo n rhinitis and Spirit perennial - [facility] allergic rhinitis [facility] Irritable Irritable Problem Com mon bowel bowel Spirit syndrome syndrome - [facility] without diarrhea [facility] [id number] Adult BMI Problem Com mon 35.0-35.9 Spirit kg/sq [facility] [id number] Insomnia, Problem Com mon unspecifie Spirit d type [facility] Migraine Migraine Problem Commo n [facility] Gout Gout Problem Common [facility] Allergies, Adverse Reactions, Alerts Allergy Allergy Status Severity Reaction(s) Onset Inactive Treating Comm ents Source Name Type Date Date Clinician SHELLFIS Allergy Active [facility]- [facility] CONTAINI 00:00: Medical NG 00 [employer] PRODUCTS Fish Drug Active [facility] Containi Allergy 2- Lukes ng 00:00: Medical Products 00 [place] Shellfis Drug Active [facility] Allergy 2- Lukes Containi 00:00: Medical ng 00 [employer] Products Fish Drug Active [facility] Containi Allergy 2- Lukes ng 00:00: Medical Products 00 [place] Shellfis Drug Active [facility] Allergy 2- Lukes Containi 00:00: Medical ng 00 [employer] Products FISH Allergy Active [facility] CONTAINI 2- Lukes NG 00:00: Medical PRODUCTS 00 [employer] EGGSHELL Allergy Active [facility] MEMBRANE 09-07 Lukes 00:00: Medical 00 [place] Eggshell Drug Active [facility] Membrane Allergy [...] Medical s Branch CEFTRIAX DRUG Active ITCHING 2017- Univers ONE INGREDI 10-06 ity of 00:00: [place] 00 Medical Branch Ceftriax Propensi Active Itching 2017- Metho di [...] Active Diarrhea 2016-0 Univer s MEMBRANE INGREDI 2 ity of 00:00: [place] 00 [...] Branch 463 Drug Active Unknown Common allergy [facility] prometha prometha Active Unknown Commo n zine zine [facility] NO KNOWN Allergy Active [facility] Family History Family Member Diagnosis Comments Start Date Stop Date Source Natural father No Known Problems Met [facility] Natural mother No Known Problems Met [facility] Social History Social Habit Start Date Stop Date Quantity Comments Source History [facility] Alcohol Std Drinks Medica [facility] History SDOH [facility] Alcohol Binge Medical [address] ter Exposure to Not sure University of SARS-CoV-2 (event) [facility] History of Tobacco Common Spirit - Use [facility] History SDOH 2021-09-02 2021-09-[address] [facility] Alcohol Frequency 00:00:00 00:00:00 [facility] Alcohol intake 2021-09-02 2021-09-[address] Alejo es 00:00:00 00:00:00 non-drinker Medical Nitza cantu (finding) Tobacco use and 2019-01-30 2019-01-30 Smokeless tobacco Un iversity of exposure 00:00:00 00:00:[address] non-[address] [facility] Cigarettes smoked 2016-11-22 2016-11-[address] current (pack per 00:00:00 00:00:00 Hospita l day) - Reported Cigarette 2016-11-22 2016-11-22 Caodaism pack-years 00:00:00 00:00:00 Hospital Tobacco Comment 2016-09-12 2016-09-12 smokes 5 Caodaism 00:00:00 00:00:00 cigarettes per Hospital day Alcohol Comment 2016-05-02 2016-05-02 Former social Method ist 00:00:00 00:00:00 alcohol use, [facility]; denies history of heavy alcohol use Sex Assigned At [birth year] [facility] ke 00:00:00 00:00:00 [facility] Smoking Status Start Date Stop Date Source Former Smoker 2021-10-13 00:00:00 2021-10-13 00:00:00 Common S pirit - [facility] Ce nter Never smoked tobacco [facility] Medications Ordered Filled Start Stop Current Ordering Indication Dosage Frequency Signature Comments Components Source Medication Medication Date Date Medication? Clinician (SIG) Name Name ketorolac No 30mg 30 mg, Unive rs (TORADOL) 11-07 Intramuscu ity of injection 19:15: 18:35 lar, ONCE, [place] 30 mg 00 :00 1 dose, On Medical 11/07/22 at 1415, Routine estradioL Yes [id number] Apply 1g Univers (ESTRACE) 2-21 vaginally ity o f 0.01 % (0.1 00:00: at bedtime [place] mg/gram) 00 every Medical vaginal night for Branch cream 2 weeks and then apply 1g vaginally at bedtime 3 times per week (Saturday//) nystatin Yes [id number] Apply to Un linda (NYSTOP) 2-21 area(s) 3 ity of 100,000 00:00: (three) [place] unit/gram 00 times Medical powder daily. Branch estradioL Yes [id number] Apply 1g Univers (ESTRACE) 2-21 vaginally ity o f 0.01 % (0.1 00:00: at bedtime [place] mg/gram) 00 every Medical vaginal night for Branch cream 2 weeks and then apply 1g vaginally at bedtime 3 times per week ( dn ida) nystatin 2021-0 Yes [id number] Apply to Un linda (NYSTOP) 2-21 area(s) 3 ity of 100,000 00:00: (three) [place] unit/gram 00 times Medical powder daily. Branch estradioL Yes [id number] Apply 1g Univers (ESTRACE) 2-21 vaginally ity o f 0.01 % (0.1 00:00: at bedtime [place] mg/gram) 00 every Medical vaginal night for Branch cream 2 weeks and then apply 1g vaginally at bedtime 3 times per week ( dn/ ida) nystatin 0 Yes [id number] Apply to Un linda (NYSTOP) 2-21 area(s) 3 ity of 100,000 00:00: (three) [place] unit/gram 00 times Medical powder daily. Branch estradioL Yes [id number] Apply 1g Univers (ESTRACE) 2-21 vaginally ity o f 0.01 % (0.1 00:00: at bedtime [place] mg/gram) 00 every Medical vaginal night for Branch cream 2 weeks and then apply 1g vaginally at bedtime 3 times per week ( ida) nystatin 2021-0 Yes [id number] Apply to Un linda (NYSTOP) 2-21 area(s) 3 ity of 100,000 00:00: (three) [place] unit/gram 00 times Medical powder daily. Branch methylnaltr Yes Take by Uni vers exone 2-16 mouth. ity of bromide 14:28: [place] (RELISTOR 49 Medical ORAL) Branch potassium Yes Take by Unive rs (POTASSIMIN 2-16 mouth once it y of ORAL) 14:28: now. [address] spironolact 0 Yes 100mg Take 100 U nivers one 100 mg 2-16 mg by ity of tablet 14:28: mouth. [address] methylnaltr Yes Take by Uni vers exone 2-16 mouth. ity of bromide 14:28: [place] (RELISTOR 49 Medical ORAL) Branch potassium Yes Take by Unive rs (POTASSIMIN 2-16 mouth once it y of ORAL) 14:28: now. [address] spironolact 0 Yes 100mg Take 100 U nivers one 100 mg 2-16 mg by ity of tablet 14:28: mouth. [address] methylnaltr 0 Yes Take by Uni vers exone 2-16 mouth. ity of bromide 14:28: [place] (RELISTOR 49 Medical ORAL) Branch potassium 0 Yes Take by Unive rs (POTASSIMIN 2-16 mouth once it y of ORAL) 14:28: now. [address] spironolact 0 Yes 100mg Take 100 U nivers one 100 mg 2-16 mg by ity of tablet 14:28: mouth. [address] methylnaltr 0 Yes Take by Uni vers exone 2-16 mouth. ity of bromide 14:28: [place] (RELISTOR 49 Medical ORAL) Branch potassium 0 Yes Take by Unive rs (POTASSIMIN 2-16 mouth once it y of ORAL) 14:28: now. [address] spironolact 0 Yes 100mg Take 100 U nivers one 100 mg 2-16 mg by ity of tablet 14:28: mouth. [address] lactulose 0 Yes 20g Q.[id number] Take [address] (Kristalose 2-07 [id number] packet (20 Lukes ) 20 gram 00:00: 3D g total) Medi cj packet 00 by mouth 3 Center (three) times daily START ONCE STOOLS ARE FORMED.. lactulose 2021-0 Yes 20g Q.[id number] Take [address] (Kristalose 2-07 [id number] packet (20 Lukes ) 20 gram 00:00: 3D g total) Medi cj packet 00 by mouth 3 Center (three) times daily START ONCE STOOLS ARE FORMED.. lactulose 2021-0 Yes 20g Q.[id number] Take [address] (Kristalose 2-07 [id number] packet (20 Lukes ) 20 gram 00:00: 3D g total) Medi cj packet 00 by mouth 3 Center (three) times daily START ONCE STOOLS ARE FORMED.. lactulose 2021-0 Yes 20g Q.[id number] Take [address] (Kristalose 2-07 [id number] packet (20 Lukes ) 20 gram 00:00: 3D g total) Medi cj packet 00 by mouth 3 Center (three) times daily START ONCE STOOLS ARE FORMED.. lactulose 2021-0 Yes 20g Q.[id number] Take [address] (Kristalose 2-07 [id number] packet (20 Lukes ) 20 gram 00:00: 3D g total) Medi cj packet 00 by mouth 3 Center (three) times daily START ONCE STOOLS ARE FORMED.. lactulose 0 Yes 20g Q.[id number] Take [address] (Kristalose 2-07 [id number] packet (20 Lukes ) 20 gram 00:00: 3D g total) Medi cj packet 00 by mouth 3 Center (three) times daily START ONCE STOOLS ARE FORMED.. lactulose 0 Yes 20g Q.[id number] Take [address] (Kristalose 2-07 [id number] packet (20 Lukes ) 20 gram 00:00: 3D g total) Medi cj packet 00 by mouth 3 Center (three) times daily START ONCE STOOLS ARE FORMED.. lactulose 0 Yes 20g Q.[id number] Take [address] (Kristalose 2-07 [id number] packet (20 Lukes ) 20 gram 00:00: 3D g total) Medi cj packet 00 by mouth 3 Center (three) times daily START ONCE STOOLS ARE FORMED.. lactulose 0 Yes 20g Q.[id number] Take [address] (Kristalose 2-07 [id number] packet (20 Lukes ) 20 gram 00:00: 3D g total) Medi cj packet 00 by mouth 3 Center (three) times daily START ONCE STOOLS ARE FORMED.. eszopiclone Yes 2mg Take [address] (LUNESTA) 2 2-05 by mouth Luke s MG tablet 12:13: every Medical 56 night as Center needed. gabapentin 2021- Yes 1{capsu Q.5D Take 1 CH I [...] MG 12:13: mouth Medical tablet 56 nightly. [employer] ubrogepant Yes 100mg Take 100 CH I [...] Center hours as needed for Pain. eszopiclone 2022-0 Yes 2mg Take 2 mg C HI [...] for 3 days. lactulose 2021- No 1{packe Q.[id number] Take [address] (Kristalose 2-04 02-04 t} [id number] packet by [facility]ukes ) 20 gram 15:50: 00:00 3D mouth 3 Medi cj packet 31 :00 (three) Center times daily. lactulose 2021- No 1{packe Q.[id number] Take [address] (Kristalose 2-04 02-04 t} [id number] packet by [facility]ukes ) 20 gram 15:50: 00:00 3D mouth 3 Medi cj packet 31 :00 (three) Center times daily. lactulose 2021- No 1{packe Q.[id number] Take [address] (Kristalose 2-04 02-04 t} [id number] packet by [facility]ukes ) 20 gram 15:50: 00:00 3D mouth 3 Medi cj packet 31 :00 (three) Center times daily. zinc Yes APPLY [facility] oxide-luana 2-04 TOPICALLY Alejo es latum 00:00: BID. Medical (CRITIC-AID 00 Center ) 20-51 % Pste topical paste zinc 2021-[address] oxide-luana 2-04 TOPICALLY Alejo es latum 00:00: BID. Medical (CRITIC-AID [address] [place] [address] ) 20-51 % Pste topical paste zinc 2-[address] oxide-luana 2-04 TOPICALLY Alejo es latum 00:00: BID. Medical (CRITIC-AID [address] [place] [address] ) 20-51 % Pste topical paste zinc 2021-[address] [facility] oxide-luana 2-04 TOPICALLY Alejo es latum 00:00: BID. Medical (CRITIC-AID [address] [place] [address] ) 20-51 % Pste topical paste zinc 2021-[address] [facility] oxide-luana 2-04 TOPICALLY Alejo es latum 00:00: BID. Medical (CRITIC-AID [address] [place] [address] ) 20-51 % Pste topical paste zinc 2021-[address] [facility] oxide-luana 2-04 TOPICALLY Alejo es latum 00:00: BID. Medical (CRITIC-AID [address] [place] [address] ) 20-51 % Pste topical paste zinc 2021-[address] [facility] oxide-luana 2-04 TOPICALLY Alejo es latum 00:00: BID. Medical (CRITIC-AID [address] [place] [address] ) 20-51 % Pste topical paste zinc 2021-[address] [facility] oxide-luana 2-04 TOPICALLY Alejo es latum 00:00: BID. Medical (CRITIC-AID [address] [place] [address] ) 20-51 % Pste topical paste zinc 2021-[address] [facility] oxide-luana 2-04 TOPICALLY Alejo es latum 00:00: BID. Medical (CRITIC-AID [address] [place] [address] ) 20-51 % Pste topical paste nystatin 2022- No Q.5D Apply [facility] (MYCOSTATIN 2-04 02-04 topically Susanna kes ) 100,000 00:00: 23:59 2 (two) Medi cj unit/gram 00 :00 times Center powder daily. cholestyram 2022- No 1{packe Q.5D Take [address] ine 2-04 02-04 t} packet by Gurpreet (QUESTRAN) 00:00: 23:59 mouth 2 Med ical 4 gram PwPk 00 :00 (two) Center packet times daily. nystatin 2022- No Q.5D Apply [facility] (MYCOSTATIN 2-04 02-04 topically Susanna kes ) 100,000 00:00: 23:59 2 (two) Medi cj unit/gram 00 :00 times Center powder daily. cholestyram 2022- No 1{packe Q.5D Take [address] ine 2-04 02-04 t} packet by [employer] (CyrbaRAN) 00:00: 23:59 mouth 2 Med ical 4 gram PwPk 00 :00 (two) Center packet times daily. nystatin 2022- No Q.5D Apply [facility] (MYCOSTATIN 2-04 02-04 topically Susanna kes ) 100,000 00:00: 23:59 2 (two) Medi cj unit/gram 00 :00 times Center powder daily. cholestyram 2022- No 1{packe Q.5D Take [address] ine 2-04 02-04 t} packet by [employer] (CyrbaRAN) 00:00: 23:59 mouth 2 Med ical 4 gram PwPk 00 :00 (two) Center packet times daily. nystatin 2022- No Q.5D Apply [facility] (MYCOSTATIN 2-04 02-04 topically Susanna kes ) 100,000 00:00: 23:59 2 (two) Medi cj unit/gram 00 :00 times Center powder daily. cholestyram 2022- No 1{packe Q.5D Take [address] ine 2-04 02-04 t} packet by [employer] (CyrbaRAN) 00:00: 23:59 mouth 2 Med ical 4 gram PwPk 00 :00 (two) Center packet times daily. nystatin 2022- No Q.5D Apply [facility] (MYCOSTATIN 2-04 02-04 topically Susanna kes ) 100,000 00:00: 23:59 2 (two) Medi cj unit/gram 00 :00 times Center powder daily. cholestyram 2022- No 1{packe Q.5D Take [address] ine 2-04 02-04 t} packet by [employer] (QUESTRAN) 00:00: 23:59 mouth 2 Med ical 4 gram PwPk 00 :00 (two) Center packet times daily. nystatin 2022- No Q.5D Apply [facility] (MYCOSTATIN 2-04 02-04 topically Susanna kes ) 100,000 00:00: 23:59 2 (two) Medi cj unit/gram 00 :00 times Center powder daily. cholestyram 2022- No 1{packe Q.5D Take [address] ine 2-04 02-04 t} packet by [employer] (CyrbaRAN) 00:00: 23:59 mouth 2 Med ical 4 gram PwPk 00 :00 (two) Center packet times daily. nystatin 2022- No Q.5D Apply [facility] (MYCOSTATIN 2-04 02-04 topically Susanna kes ) 100,000 00:00: 23:59 2 (two) Medi cj unit/gram 00 :00 times Center powder daily. cholestyram 2022- No 1{packe Q.5D Take [address] ine 2-04 02-04 t} packet by [employer] (CyrbaRAN) 00:00: 23:59 mouth 2 Med ical 4 gram PwPk 00 :00 (two) Center packet times daily. nystatin 2022- No Q.5D Apply [facility] (MYCOSTATIN 2-04 02-04 topically Susanna kes ) 100,000 00:00: 23:59 2 (two) Medi cj unit/gram 00 :00 times Center powder daily. cholestyram 2022- No 1{packe Q.5D Take [address] ine 2-04 02-04 t} packet by [employer] (CyrbaRAN) 00:00: 23:59 mouth 2 Med ical 4 gram PwPk 00 :00 (two) Center packet times daily. nystatin 2022- No Q.5D Apply [facility] (MYCOSTATIN 2-04 02-04 topically Susanna kes ) 100,000 00:00: 23:59 2 (two) Medi cj unit/gram 00 :00 times Center powder daily. cholestyram 2022- No 1{packe Q.5D Take [address] ine 2-04 02-04 t} packet by [employer] (QUESTRAN) 00:00: 23:59 mouth 2 Med ical [...] needed for up to 360 days. acetaminoph 0 2022- No 650mg Take [address] en 09-1530 tablets Lukes (TYLENOL) 00:00: 23:59 (650 mg Medi cj 325 MG 00 :00 total) by Center tablet mouth every 8 (eight) hours as needed for up to 360 days. acetaminoph 0 2022- No 650mg Take 2 CH I [...] (twelve) hours for 7 days. cholestyram 2021- 2022- No 1{packe Q.5D Take [address] ine 2-04 02-04 t} packet by [facility]ukes (CyrbaRAN) 00:00: 00:00 mouth 2 Med ical 4 gram PwPk 00 :00 (two) Center packet times daily. fidaxomicin 2-0 2- No 200mg Take [address] 200 mg Tab 2- 02-04 tablet [facility]ukes 00:00: 00:00 (200 mg Medical 00 :00 total) by Center mouth every 12 (twelve) hours for 7 days. lidocaine 2021-2- No 1{patch Q24H Place [address] (LIDODERM) 2 02-04 } patch onto Susanna kes 5 % patch 00:00: 00:00 the skin Med ical 00 :00 daily for Center 30 days Remove & Discard patch within 12 hours or as directed by . cholestyram 2021-2021- No 1{packe Q.5D Take [address] ine 2-04 02-04 t} packet by [employer] (CyrbaRAN) 00:00: 00:00 mouth 2 Med ical 4 [...] St ine 2-04 02-04 t} packet by [employer] (CyrbaRAN) 00:00: 00:00 mouth 2 Med ical 4 gram PwPk 00 :00 (two) Center packet times daily. fidaxomicin 2022-0 2- No 200mg Take 1 CH I [...] (two) Center times daily. lactulose Yes 1{packe Q.[id number] Take [address] (Kristalose 1-24 t} [id number] packet by Gurpreet ) 20 gram 16:27: [...] daily as l [facility]. [facility] Last filled: [...] tablet 18:28: nightly. Hosp page 48 Per [place] l Prescripti on Drug Monitoring Program records: Last filled: 08/09/21 Quantity: 30 Days Supply: 30 traMADoL Yes 50mg Q4H Take 50 mg Met hodi (ULTRAM) 50 -[address] mg tablet 18:28: every 4 Hospi ta 48 (four) l hours as needed for moderate pain. Per [facility] on Drug Monitoring Program records: Last filled: [...] Hospit a tablet 47 :00 l SUMAtriptan 2021-0 Yes [id number] 50mg Q24H Take 1 Methodi (Imitrex) 1-10 [...] nightly for 30 days. pantoprazol 2021- No [id number] 40mg QD Take 1 Methodi e 08-21 [...] 30 days. SUMAtriptan 2021- No TAKE AT Md thodi (IMITREX) 08-[address] 100 [...] benztropine No 1 tablet M ethodi (COGENTIN) 08-[address] 0.5 MG 09:52: 00:00 [...] day for 30 days. gabapentin No 300mg Q.[id number] Take 1 Methodi (NEURONTIN) 04-[id number] 300 mg 00:00: 00:00 3D (300 mg Hospita capsule 00 :00 total) by l mouth 3 (three) times a day for 30 days. Ketorolac Ketorolac 2020-0 No 30mg Com mon (Toradol) (Toradol) 8-24 Spiri t per 15mg per 15mg 00:00: [facility] Ketorolac Ketorolac 2020-0 No 30mg Com mon (Toradol) (Toradol) 8-24 Spiri t per 15mg per 15mg 00:00: [facility] Ketorolac Ketorolac 2020-0 No 30mg Com mon (Toradol) (Toradol) 8-24 Spiri t per 15mg per 15mg 00:00: [facility] Ketorolac Ketorolac 2020-0 No 30mg Com mon (Toradol) (Toradol) 8-24 Spiri t per 15mg per 15mg 00:00: [facility] Ketorolac Ketorolac 2020-0 No 30mg Com mon (Toradol) (Toradol) 8-24 Spiri t per 15mg per 15mg 00:00: [facility] Vitamin B12 Vitamin B12 2019-0 No 1000ug Common (Cyanocobal (Cyanocobal 7-24 S pirit jameson) jameson) 00:00: - [facility] Vitamin B12 Vitamin B12 2020-0 No 1000ug Common (Cyanocobal (Cyanocobal 7-24 S pirit jameson) jameson) 00:00: - CHI 00 [facility] Vitamin B12 Vitamin B12 2020-0 No 1000ug Common (Cyanocobal (Cyanocobal 7-24 S pirit jameson) jameson) 00:00: - CHI 00 [facility] Vitamin B12 Vitamin B12 2020-0 No 1000ug Common (Cyanocobal (Cyanocobal 7-24 S pirit jameson) jameson) 00:00: - [facility] 00 [facility] Vitamin B12 Vitamin B12 2020-0 No 1000ug Common (Cyanocobal (Cyanocobal 7-24 S pirit jameson) jameson) 00:00: - [facility] 00 [facility] pantoprazol 2021- No [id number] 40mg QD Take 1 Methodi e -08-19 tablet (40 st (PROTONIX) 00:00: 00:00 mg total) H ospita 40 MG EC 00 :00 by mouth l tablet every morning. SUMAtriptan 2021- No [id number] 50mg Q24H Take 1 Methodi (Imitrex) 01-24 [...] pirit jameson) jameson) 00:00: - [facility] 00 [facility] Vitamin B12 Vitamin B12 2018-08 No 1000ug Common (Cyanocobal (Cyanocobal 2-05 S pirit jameson) jameson) 00:00: - [facility] 00 [facility] Vitamin B12 Vitamin B12 2019-1 No 1000ug Common (Cyanocobal (Cyanocobal 2-05 S pirit jameson) jameson) 00:00: - [facility] 00 [facility] Vitamin B12 Vitamin B12 2019-1 No 1000ug Common (Cyanocobal (Cyanocobal 2-05 S pirit jameson) jameson) 00:00: - [facility] 00 [facility] Vitamin B12 Vitamin B12 2019-1 No 1000ug Common (Cyanocobal (Cyanocobal 2-05 S pirit jameson) jameson) 00:00: - [facility] 00 [facility] Vitamin B12 Vitamin B12 2019-0 No 1000ug Common (Cyanocobal (Cyanocobal 8-29 S pirit jameson) jameson) 00:00: - [facility] 00 [facility] Vitamin B12 Vitamin B12 2019-0 No 1000ug Common (Cyanocobal (Cyanocobal 8-29 S pirit jameson) jameson) 00:00: - [facility] 00 [facility] Vitamin B12 Vitamin B12 2019-0 No 1000ug Common (Cyanocobal (Cyanocobal 8-29 S pirit jameson) jameson) 00:00: - [facility] 00 [facility] Vitamin B12 Vitamin B12 2019-0 No 1000ug Common (Cyanocobal (Cyanocobal 8-29 S pirit jameson) jameson) 00:00: - [facility] 00 [facility] Vitamin B12 Vitamin B12 2019-0 No 1000ug Common (Cyanocobal (Cyanocobal 8-29 S pirit jameson) jameson) 00:00: - [facility] 00 [facility] eszopiclone 2019-0 Yes 2mg Take 2 mg U nivers 2 mg tablet 7-29 by mouth ity of 16:42: at [place] [address] bedtime. Medical Branch GABAPENTIN 2019-0 Yes Take by [facility] ers ORAL 7-29 mouth. ity of 16:42: [place] [address] Medical Branch traMADOL 50 2019-0 Yes 50mg Take 50 mg Univers mg tablet 7- by mouth ity of 16:42: as needed [place] [id number] for Pain Medical (scale Branch 7-10). eszopiclone 2019-0 Yes 2mg Take 2 mg U nivers 2 mg tablet 7-29 by mouth ity of 16:42: at [place] [address] bedtime. Medical Branch GABAPENTIN 2019-0 Yes Take by [facility] ers ORAL 7-29 mouth. ity of 16:42: [place] [address] Medical Branch traMADOL 50 0 Yes 50mg Take 50 mg Univers mg tablet 7-29 by mouth ity of 16:42: as needed [place] [address] for Pain Medical (scale Branch 7-10). eszopiclone 2019-0 Yes 2mg Take 2 mg U nivers 2 mg tablet 7-29 by mouth ity of 16:42: at [place] [address] bedtime. Medical Branch GABAPENTIN Yes Take by [facility] ers ORAL 7-29 mouth. ity of 16:42: [place] [address] Medical Branch traMADOL 50 0 Yes 50mg Take 50 mg Univers mg tablet 7-29 by mouth ity of 16:42: as needed [place] [address] for Pain Medical (scale Branch 7-10). eszopiclone 2019-0 Yes 2mg Take 2 mg U nivers 2 mg tablet 7-29 by mouth ity of 16:42: at [place] [address] bedtime. Medical Branch GABAPENTIN Yes Take by [facility] ORAL 7-29 mouth. ity of 16:42: [place] [address] Medical Branch traMADOL 50 0 Yes 50mg Take 50 mg Univers mg tablet 7-29 by mouth ity of 16:42: as needed [place] [address] for Pain Medical (scale Branch 7-10). lactulose 2019-0 Yes [id number] 20g Take 1 Un linda (KRISTALOSE 7-29 Packet by ity of ) 20 gram 00:00: mouth 3 [place] packet 00 (three) Medical times Branch daily. lactulose 2019-0 Yes [id number] 20g Take 1 Un linda (KRISTALOSE 7-29 Packet by ity of ) 20 gram 00:00: mouth 3 [place] packet 00 (three) Medical times Branch daily. lactulose 2019-0 Yes [id number] 20g Take 1 Un linda (KRISTALOSE 7-29 Packet by ity of ) 20 gram 00:00: mouth 3 [place] packet 00 (three) Medical times Branch daily. lactulose 2019-0 Yes [id number] 20g Take 1 Un linda (KRISTALOSE 7-29 Packet by ity of ) 20 gram 00:00: mouth 3 [place] packet 00 (three) Medical times Branch daily. ondansetron 2019-0 Yes [id number] 8mg Take 2 Univers 4 mg tablet 4-01 tablets by it y of 00:00: mouth [place] 00 every 8 Medical (eight) Branch hours as needed for Nausea and Vomiting (N/V). ondansetron 2018- Yes [id number] 8mg Take 2 Univers 4 mg tablet 4-01 tablets by it y of 00:00: mouth [place] 00 every 8 Medical (eight) Branch hours as needed for Nausea and Vomiting (N/V). ondansetron 2018- Yes [id number] 8mg Take 2 Univers 4 mg tablet 4-01 tablets by it y of 00:00: mouth [place] 00 every 8 Medical (eight) Branch hours as needed for Nausea and Vomiting (N/V). ondansetron 2018- Yes [id number] 8mg Take 2 Univers 4 mg tablet 4-01 tablets by it y of 00:00: mouth [place] 00 every 8 Medical (eight) Branch hours as needed for Nausea and Vomiting (N/V). butalbital- Yes [id number] 1{capsu Take 1 Univers aspirin-caf 3-25 le} capsule by it y of feine 00:00: mouth [place] 50-325-40 00 every 4 Medical mg per (four) Branch capsule hours as needed for Pain (headache unrelieved wtih other medication s). butalbital- Yes [id number] 1{capsu Take 1 Univers aspirin-caf 3-25 le} capsule by it y of feine 00:00: mouth [place] 50-325-40 00 every 4 Medical mg per (four) Branch capsule hours as needed for Pain (headache unrelieved wtih other medication s). butalbital- Yes [id number] 1{capsu Take 1 Univers aspirin-caf 3-25 le} capsule by it y of feine 00:00: mouth [place] 50-325-40 00 every 4 Medical mg per (four) Branch capsule hours as needed for Pain (headache unrelieved wtih other medication s). butalbital- Yes [id number] 1{capsu Take 1 Univers aspirin-caf 3-25 le} capsule by it y of feine 00:00: mouth [place] 50-325-40 00 every 4 Medical mg per (four) Branch capsule hours as needed for Pain (headache unrelieved wtih other medication s). Albuterol Albuterol 2018- No 2{puffs Albuterol Sulfate HFA Sulfate HFA 1-29 _as_nee Sulfate 108 (90 108 (90 00:00: ded} HFA 108 Base) Base) 00 (90 Base) MCG/ACT MCG/ACT MCG/ACT Albuterol Albuterol No 2{puffs Albuterol Sulfate HFA Sulfate HFA 1-29 _as_nee Sulfate 108 (90 108 (90 00:00: ded} HFA 108 Base) Base) 00 (90 Base) MCG/ACT MCG/ACT MCG/ACT XIFAXAN 550 2016-08 Yes [id number] TAKE ONE Univers mg tablet 1-27 TABLET BY ity o f 00:00: MOUTH 2 [place] 00 TIMES A Medical DAY Branch PANTOPRAZOL 2016-08 Yes [id number] TAKE ONE Univers E 40 mg EC 1-27 TABLET BY ity of tablet 00:00: MOUTH [place] 00 EVERY DAY Medical Branch XIFAXAN 550 2016-08 Yes [id number] TAKE ONE Univers mg tablet 1-27 TABLET BY ity o f 00:00: MOUTH 2 [place] 00 TIMES A Medical DAY Branch PANTOPRAZOL 2016-08 Yes [id number] TAKE ONE Univers E 40 mg EC 1-27 TABLET BY ity of tablet 00:00: MOUTH [place] 00 EVERY DAY Medical Branch XIFAXAN 550 2016-08 Yes [id number] TAKE ONE Univers mg tablet 1-27 TABLET BY ity o f 00:00: MOUTH 2 [place] 00 TIMES A Medical DAY Branch PANTOPRAZOL 2016-08 Yes [id number] TAKE ONE Univers E 40 mg EC 1-27 TABLET BY ity of tablet 00:00: MOUTH [place] 00 EVERY DAY Medical Branch XIFAXAN 550 2016-08 Yes [id number] TAKE ONE Univers mg tablet 1-27 TABLET BY ity o f 00:00: MOUTH 2 [place] 00 TIMES A Medical DAY Branch PANTOPRAZOL 2016-08 Yes [id number] TAKE ONE Univers E 40 mg EC [...] ity of tablet 00:00: Medical Branch furosemide 2016-1 Yes 40mg Take 40 mg U nivers 40 mg 0-10 by mouth. ity of tablet 00:00: [address] Allopurinol Allopurinol Yes Fernadno 2 tablets [facility] Zofran ODT Zofran ODT No 1{table TID [...] 2021-04-12 Completed Universit y of Vaccine 00:00:00 [facility] Influenza Virus 2021-04-12 Completed Universit y of Vaccine 00:00:00 [facility] Influenza Virus 2021-04-12 Completed Universit y of Vaccine 00:00:00 [facility] Influenza Virus 2021-04-12 Completed Universit y of Vaccine 00:00:00 [facility] SARS-COV-2 COVID-19 2020-12-14 Completed Unive rsity of YANIRA/J&J VACCINE 00:00:00 [facility] SARS-COV-2 COVID-19 2020-12-14 Completed Unive rsity of YANIRA/J&J VACCINE 00:00:00 [facility] SARS-COV-2 COVID-19 2020-12-14 Completed Unive rsity of YANIRA/J&J VACCINE 00:00:00 [facility] SARS-COV-2 COVID-19 2020-12-14 Completed Unive rsity of YANIRA/J&J VACCINE 00:00:00 [facility] Ketorolac (Toradol) Ketorolac (Toradol) 2020-04-04 Completed [facility] per 15mg per 15mg 11:19:00 [facility] Ketorolac (Toradol) Ketorolac (Toradol) 2020-04-04 Completed [facility] - per 15mg per 15mg 11:19:00 [facility] Ketorolac (Toradol) Ketorolac (Toradol) 2020-04-04 Completed [facility] - per 15mg per 15mg 11:19:00 [facility] Ketorolac (Toradol) Ketorolac (Toradol) 2020-04-04 Completed [facility] - per 15mg per 15mg 11:19:00 [facility] Ketorolac (Toradol) Ketorolac (Toradol) 2020-04-04 Completed [facility] - per 15mg per 15mg 11:19:00 [facility] Ketorolac (Toradol) Ketorolac (Toradol) 2020-04-04 Completed [facility] per 15mg per 15mg 11:19:00 [facility] Ketorolac (Toradol) Ketorolac (Toradol) 2020-04-04 Completed [facility] - per 15mg per 15mg 11:19:00 [facility] Ketorolac (Toradol) Ketorolac (Toradol) 2020-04-04 Completed [facility] - per 15mg per 15mg 11:19:00 [facility] Vitamin B12 Vitamin B12 2019-07-16 Completed [facility] - (Cyanocobalamin) (Cyanocobalamin) 13:54:00 [facility] Vitamin B12 Vitamin B12 2019-07-16 Completed [facility] Sp[facility] t - (Cyanocobalamin) (Cyanocobalamin) 13:54:00 [facility] Vitamin B12 Vitamin B12 2019-07-16 Completed [facility] - (Cyanocobalamin) (Cyanocobalamin) 13:54:00 [facility] Vitamin B12 Vitamin B12 2019-07-16 Completed [facility] - (Cyanocobalamin) (Cyanocobalamin) 13:54:00 [facility] Vitamin B12 Vitamin B12 2019-07-16 Completed [facility] - (Cyanocobalamin) (Cyanocobalamin) 13:54:00 [facility] Vitamin B12 Vitamin B12 2019-07-16 Completed [facility] - (Cyanocobalamin) (Cyanocobalamin) 13:54:00 [facility] Vitamin B12 Vitamin B12 2019-07-16 Completed [facility] - (Cyanocobalamin) (Cyanocobalamin) 13:54:00 [facility] Vitamin B12 Vitamin B12 2019-07-16 Completed [facility] - (Cyanocobalamin) (Cyanocobalamin) 13:54:00 I [facility] Vitamin B12 Vitamin B12 2019-04-09 Completed [facility] Sp[facility] t - (Cyanocobalamin) (Cyanocobalamin) 14:26:00 I [facility] Vitamin B12 Vitamin B12 2019-04-09 Completed [facility] t - (Cyanocobalamin) (Cyanocobalamin) 14:26:00 I [facility] Vitamin B12 Vitamin B12 2019-04-09 Completed [facility] - (Cyanocobalamin) (Cyanocobalamin) 14:26:00 [facility] Vitamin B12 Vitamin B12 2019-04-09 Completed [facility] - (Cyanocobalamin) (Cyanocobalamin) 14:26:00 [facility] Vitamin B12 Vitamin B12 2019-04-09 Completed [facility] - (Cyanocobalamin) (Cyanocobalamin) 14::00 [facility] Vitamin B12 Vitamin B12 2019-04-09 Completed [facility] - (Cyanocobalamin) (Cyanocobalamin) 14::00 [facility] Vitamin B12 Vitamin B12 2019-04-09 Completed [facility] - (Cyanocobalamin) (Cyanocobalamin) 14::00 [facility] Vitamin B12 Vitamin B12 2019-04-09 Completed [facility] - (Cyanocobalamin) (Cyanocobalamin) 14::00 [facility] Influenza (IM) 2018-04-21 Completed [facility] Preservative Free 00:00:00 [facility]osp[facility] Influenza Virus 2018-04-21 Completed Universit y of Vaccine (3+ yrs) 00:00:00 [facility] dical Branch Influenza Virus 2018-04-21 Completed Universit y of Vaccine (3+ yrs) 00:00:00 [facility] dical Branch Influenza Virus 2018-04-21 Completed Universit y of Vaccine (3+ yrs) 00:00:00 [facility] dical Branch Influenza Virus 2018-04-21 Completed Universit y of Vaccine (3+ yrs) 00:00:00 [facility] dical Branch Pneumococcal 2016-05-08 Completed [facility] Conjugate 13-Valent 00:00:00 Hospi mateo FLUCELVAX QUAD PF 2016-05-[address] 00:00:00 [facility] Pneumococcal 13 2016-05-08 Completed Universit y of Conjugate, PCV13 00:00:00 [facility] dical (Prevnar 13) Branch Pneumococcal 13 2016-05-08 Completed Universit y of Conjugate, PCV13 00:00:00 [place] [facility]ical (Prevnar 13) Branch Pneumococcal 13 2016-05-08 Completed Universit y of Conjugate, PCV13 00:00:00 [facility] dical (Prevnar 13) Branch Pneumococcal 13 2016-05-08 Completed Universit y of Conjugate, PCV13 00:00:00 [facility] dical (Prevnar 13) Branch Vital Signs Vital Name Observation Time Observation Value Comments Source Systolic blood 2022-11-07 17:39:00 111 mm[Hg] Univer sity of [facility] Diastolic blood 2022-11-07 17:39:00 64 mm[Hg] Unive rsity of [facility] Heart rate 2022-11-07 17:39:00 79 /min [facility] Body temperature 2022-11-07 17:39:00 36.5 Georgette [facility] Respiratory rate 2022-11-07 17:39:00 18 /min [facility] Body weight 2022-11-07 17:39:00 80.287 kg [facility] BMI 2022-11-07 17:39:00 35.75 kg/m2 [facility] Oxygen saturation in 2022-11-07 17:39:00 99 /min [facility] Arterial blood by [facility] Pulse oximetry Branch Systolic blood 2021-11-16 18:59:00 111 mm[Hg] Univer sity of [facility] Diastolic blood 2021-11-16 18:59:00 74 mm[Hg] Unive rsity of [facility] Heart rate 2021-11-16 18:59:00 75 /min [facility] Body temperature 2021-11-16 18:59:00 36.67 Georgette [facility] Body height 2021-11-16 18:59:00 149.9 cm [facility] Body weight 2021-11-16 18:59:00 80.559 kg [facility] BMI 2021-11-16 18:59:00 35.87 kg/m2 [facility] height 2021-10-16 15:30:00 59 [in_i] Common [facility] weight 2021-10-16 15:30:00 176.5 [lb_av] Common [facility] temperature 2021-10-16 15:30:00 97.2 [degF] Common [facility] bmi 2021-10-16 15:30:00 35.64 kg/m2 Common [facility] oximetry 2021-10-16 15:30:00 100 % [facility] respiratory rate 2021-10-16 15:30:00 18 /min Comm [facility] blood pressure 2021-10-16 15:30:00 123 mm[Hg] Common [facility] - systolic [facility] blood pressure 2021-10-16 15:30:00 65 mm[Hg] Common [facility] - diastolic [facility] height 2021-09-25 10:40:00 59 [in_i] Common [facility] weight 2021-09-25 10:40:00 190 [lb_av] Common [facility] temperature 2021-09-25 10:40:00 97.4 [degF] [facility] bmi 2021-09-25 10:40:00 38.37 kg/m2 Common [facility] blood pressure 2021-09-25 10:40:00 125 mm[Hg] Common [facility] - systolic [facility] blood pressure 2021-09-25 10:40:00 76 mm[Hg] Common [facility] - diastolic [facility] HEIGHT 2021-09-02 15:44:00 149.9 cm WEIGHT 2021-09-02 15:44:00 87.091 kg HEIGHT 2021-09-02 15:44:00 149.9 cm WEIGHT 2021-09-02 15:44:00 87.091 kg height 2021-04-26 10:30:00 59 [in_i] Common S [facility] weight 2021-04-26 10:30:00 215 [lb_av] Common [facility] temperature 2021-04-26 10:30:00 98 [degF] [facility] bmi 2021-04-26 10:30:00 43.42 kg/m2 Common [facility] blood pressure 2021-04-26 10:30:00 121 mm[Hg] [facility] systolic [facility] blood pressure 2021-04-26 10:30:00 70 mm[Hg] [facility] - diastolic [facility] height 2021-04-26 14:20:00 59 [in_i] Common [facility] weight 2021-04-26 14:20:00 215 [lb_av] [facility] temperature 2021-04-26 14:20:00 98 [degF] [facility] bmi 2021-04-26 14:20:00 43.42 kg/m2 [facility] oximetry 2021-04-26 14:20:00 100 % [facility] blood pressure 2021-04-26 14:20:00 121 mm[Hg] [facility] - systolic [facility] blood pressure 2021-04-26 14:20:00 70 mm[Hg] [facility] - diastolic [facility] Systolic blood 2021-09-16 08:00:00 98 mm[Hg] [facility] Diastolic blood 2021-09-16 08:00:00 49 mm[Hg] [facility] Heart rate 2021-09-16 08:00:00 89 /min [facility] Body temperature 2021-09-16 08:00:00 36.17 Georgette [facility] Respiratory rate 2021-09-16 08:00:00 18 /min [facility] Oxygen saturation in 2021-09-16 08:00:00 99 /min [facility] Arterial blood by Medical nter Pulse oximetry Systolic blood 2021-09-11 19:42:00 125 mm[Hg] [facility] Center Diastolic blood 2021-09-11 19:42:00 60 mm[Hg] [facility] Heart rate 2021-09-11 19:42:00 98 /min [facility] Body temperature 2021-09-11 19:42:00 35.67 Georgette [facility] Respiratory rate 2021-09-11 19:42:00 18 /min [facility] Oxygen saturation in 2021-09-11 19:42:00 100 /min [facility] Arterial blood by Medical Ce nter Pulse oximetry Body height 2021-09-02 15:44:00 149.9 cm [facility] Body weight 2021-09-02 15:44:00 87.091 kg [facility] BMI 2021-09-02 15:44:00 38.78 kg/m2 [facility] Systolic blood 2021-08-31 06:30:00 119 mm[Hg] [facility] pressure Diastolic blood 2021-08-31 06:30:00 68 mm[Hg] [facility] [place] [facility] pressure Heart rate 2021-08-31 06:30:00 70 /min [facility] Respiratory rate 2021-08-31 06:30:00 16 /min [facility] Oxygen saturation in 2021-08-31 06:30:00 97 /min [facility] Arterial blood by Pulse oximetry Body temperature 2021-08-31 04:04:09 36.83 Georgette [facility] Body height 2021-08-31 04:04:00 149.9 cm [facility] Body weight 2021-08-31 04:04:00 89.359 kg [facility] BMI 2021-08-31 04:04:00 39.79 kg/m2 [facility] Procedures Procedure Date / Time Performing Clinician Source Performed NOTICE OF PRIVACY 2022-11-07 17:30:44 Doctor Unassigned, No Univ ersity [facility] PRACTICES Name Medical Branch CONSENT/REFUSAL FOR 2022-11-07 17:30:27 [facility] Name Medical Branch EXTERNAL PROVIDER RECORDS 2022-02-08 05:01:00 Doctor Unassigned, No [facility] HEPATITIS A ANTIBODY, IGM 2022-01-23 15:13:00 [facility] HEPATITIS B SURFACE 2022-01-23 15:13:00 [facility] HEPATITIS B CORE ANTIBODY, 2022-01-23 15:13:00 C [facility] HEPATITIS C ANTIBODY 2022-01-23 15:13:00 [facility] HEPATIC FUNCTION PANEL 2021-09-15 05:20[facility] AUTO 2021-09-15 05:20:00 KaNiya rm [facility] PROTHROMBIN TIME/INR 2021-09-15 05:20:00 KaimNiya [facility] BASIC METABOLIC PANEL 2021-09-15 05:20:00 LizzimNiya [facility] CBC W/PLT COUNT & AUTO 2021-09-15 05:20[facility]LV[facility] WITHOUT 2021-09-15 00:49:00 Kendy Hall [facility] IV [facility] CBC W/PLT COUNT & AUTO 2021-09-14 08:36:00 KaNiya rm [facility] CBC W/PLT COUNT & AUTO 2021-09-14 08:36[facility] 2021-09-14 07:35:[facility]/INR 2021-09-14 07:35:00 Niya Cartagena [facility] BASIC METABOLIC PANEL 2021-09-14 07:35:00 KaimNiya C [facility] HEPATIC FUNCTION PANEL 2021-09-13 07:14:00 Kaim Niya [facility] CBC W/PLT COUNT & AUTO 2021-09-13 07:14:00 Kaim, Niya Cindy [facility] PROTHROMBIN TIME/INR 2021-09-13 07:14:00 KaimNiya [facility] BASIC METABOLIC PANEL 2021-09-13 07:14:00 Lizzim Niya Cindy C [facility] CBC W/PLT COUNT & AUTO 2021-09-13 07:14:00 Mitzi Niya [facility] HEPATIC FUNCTION PANEL 2021-09-12 04:23:00 KaimNiya [facility] CBC W/PLT COUNT & AUTO 2021-09-12 04:23:[address] [facility] PROTHROMBIN TIME/INR 2021-09-12 04:23:00 Lizzim Niyaraquel White [facility] BASIC METABOLIC PANEL 2021-09-12 04:23:00 Mitzi Niyalilian Torrezison Zoe [facility] MAGNESIUM 2021-09-12 04:23:00 Selma Lu [facility] VITAMIN B12 2021-09-12 04:23:00 Bradley [facility] VITAMIN D, 25-HYDROXY 2021-09-12 04:23:00 Bradley [facility] C-REACTIVE PROTEIN 2021-09-12 04:23:00 Bradley [facility] CBC W/PLT COUNT & AUTO 2021-09-12 04:23:00 [facility] 2021-09-11 05:33:00 [facility] W/[facility]T COUNT & AUTO 2021-09-11 05:33:00 [facility]ag [facility] PROTHROMBIN TIME/INR 2021-09-11 05:33:00 Lizzim Niyaraquel White [facility] BASIC METABOLIC PANEL 2021-09-11 05:33:00 Kaim Niya Cindy C [facility] MAGNESIUM 2021-09-11 05:33:00 Selma Lu [facility] CBC W/PLT COUNT & AUTO 2021-09-11 05:33:00 [facility] 2021-09-10 06:52:00 [facility]ag [facility] W/PLT COUNT & AUTO 2021-09-10 06:52:[address] [facility] PROTHROMBIN TIME/INR 2021-09-10 06:52:00 Niya Cartagena [facility] BASIC METABOLIC PANEL 2021-09-10 06:52:00 Niya Cartagena [facility] MAGNESIUM 2021-09-10 06:52:00 Aly [facility] CBC W/PLT COUNT & AUTO 2021-09-10 06:52:00 [facility] 2021-09-09 05:51:00 Mitzi Niya Cindy [facility] CBC W/PLT COUNT & AUTO 2021-09-09 05:51:00 Mitzi Niya [facility] PROTHROMBIN TIME/INR 2021-09-09 05:51:00 Niya Cartagena [facility] BASIC METABOLIC PANEL 2021-09-09 05:51:00 Niya Cartagena [facility] CBC W/PLT COUNT & AUTO 2021-09-09 05:51:[address] [facility] (CELLAVISION MANUAL DIFF) 2021-09-09 05:51:00 Niya Cartagena [facility] AMMONIA 2021-09-08 10:54:[facility] 2021-09-08 05:14:00 Zara Mason [facility] HEPATIC FUNCTION PANEL 2021-09-08 05:14:00 KaNiya rm [facility] CBC W/PLT COUNT & AUTO 2021-09-08 05:14:[address] [facility] PROTHROMBIN TIME/INR 2021-09-08 05:14:00 Niya Cartagena [facility] BASIC METABOLIC PANEL 2021-09-08 05:14:00 Niya Cartagena [facility] CBC W/PLT COUNT & AUTO 2021-09-08 05:14:[address] [facility] (CELLAVISION MANUAL DIFF) 2021-09-08 05:14:00 Niya Cartagena on [facility] PHOSPHORUS 2021-09-07 05:37:00 Isabella [facility] HEPATIC FUNCTION PANEL 2021-09-07 05:37:00 Niya Cartagena [facility] CBC W/PLT COUNT & AUTO 2021-09-07 05:37:[address] [facility] PROTHROMBIN TIME/INR 2021-09-07 05:37:00 Niya Cartagena [facility] BASIC METABOLIC PANEL 2021-09-07 05:37:00 Niya Cartagena [facility] CBC W/PLT COUNT & AUTO 2021-09-07 05:37:[address] [facility] (CELLAVISION MANUAL DIFF) 2021-09-07 05:37:00 Niya Cartagena on [facility] PROTHROMBIN TIME/INR 2021-09-06 06:37:00 Niya Cartagena [facility] BASIC METABOLIC PANEL 2021-09-06 06:37:00 Zara Mason [facility] PHOSPHORUS 2021-09-06 06:37:00 Isabella [facility] PROTHROMBIN TIME/INR 2021-09-05 14:31:00 Niya Cartagena [facility] BASIC METABOLIC PANEL 2021-09-05 14:31:00 IsabellaZara CH I [facility] PHOSPHORUS 2021-09-05 14:31:00 IsabellaGianna kennedynalini [facility] CBC W/PLT COUNT & AUTO 2021-09-05 14:31:00 Juve Masonini C [facility] HEPATIC FUNCTION PANEL 2021-09-05 14:31:00 Gianna Masonnalini C [facility] CBC W/PLT COUNT & AUTO 2021-09-05 14:31:00 Juve Masonini [facility] (CELLAVISION MANUAL DIFF) 2021-09-05 14:31:00 [facility] C. DIFFICILE GDH TOXIN 2021-09-04 11:52:00 Jaqueline Vitale [facility] CT ABDOMEN/PELVIS WITH IV 2021-09-04 09:03:00 Mirian Goodman [facility] CT CHEST WITH IV CONTRAST 2021-09-04 09:03:00 Isabella Juvein [facility] CBC W/PLT COUNT & AUTO 2021-09-04 04:39:[address] [facility] COMPREHENSIVE METABOLIC 2021-09-04 04:39:00 Nia Lawrence [facility] MAGNESIUM 2021-09-04 04:39:00 Nia Lawrence [facility] PHOSPHORUS 2021-09-04 04:39:00 iNa Lawrence [facility] CBC W/PLT COUNT & AUTO 2021-09-04 04:39:[address] [facility] (CELLAVISION MANUAL DIFF) 2021-09-04 04:39:00 Nia Lawrence sa [facility] HEPATITIS A ANTIBODY, IGG 2021-09-03 12:02:00 [facility] HEPATITIS B CORE ANTIBODY, 2021-09-03 12:02:00 Gianna Masonfredi ni [facility] TOTAL [facility] HEPATITIS B SURFACE 2021-09-03 12:02:00 Juve Masonini [facility] ANTIBODY [facility] HEPATITIS B SURFACE 2021-09-03 12:02:00 Gianna Masoncount includes the [facility] ANTIGEN [facility] HEPATITIS C ANTIBODY 2021-09-03 12:02:00 Gianna Masoncount includes the [facility] CBC W/PLT COUNT & AUTO 2021-09-03 12:01:[address] [facility] COMPREHENSIVE METABOLIC 2021-09-03 12:01:00 Nia Lawrence [facility] MAGNESIUM 2021-09-03 12:01:00 Nia Lawrence [facility] PHOSPHORUS 2021-09-03 12:01:00 Nia Lawrence [facility] PROTHROMBIN TIME/INR 2021-09-03 12:01:[address] [facility] CBC W/PLT COUNT & AUTO 2021-09-03 12:01:[address] [facility] (CELLAVISION MANUAL DIFF) 2021-09-03 12:01:00 Nia Lawrence sa [facility] BLOOD CULTURE 2021-09-03 11:59:00 Nia Lawrence [facility] OVA AND PARASITE 2021-09-02 09:44:00 Troy Awadil [facility] GI PATHOGEN PROFILE BY PCR 2021-09-02 09:44:00 Delmi, Troy Bladimir il [facility] BLOOD CULTURE 2021-09-02 06:03:00 Nia Lawrence [facility] CBC W/PLT COUNT & AUTO 2021-09-02 06:03:[address] [facility] COMPREHENSIVE METABOLIC 2021-09-02 06:03:00 Nia Lawrence [facility] MAGNESIUM 2021-09-02 06:03:00 Nia Lawrence [facility] PHOSPHORUS 2021-09-02 06:03:00 Nia Lawrence [facility] C-REACTIVE PROTEIN 2021-09-02 06:03:00 Nia Lawrence [facility] CBC W/PLT COUNT & AUTO 2021-09-02 06:03:[address] [facility] (CELLAVISION MANUAL DIFF) 2021-09-02 06:03:00 Nia Lawrence sa [facility] IRON, TIBC, % SAT. 2021-09-02 06:01:00 Nia Lawrence [facility] (WITHOUT FERRITIN) Medical [facility] VITAMIN B12 AND FOLATE 2021-09-02 06:01:00 Nia Lawrence [facility] CT BRAIN WITHOUT IV 2021-09-02 02:39:00 Nia Lawrence [facility] CONTRAST [facility] US ABDOMEN LIMITED 2021-09-02 02:09:00 Nia Lawrence [facility] URINE CULTURE 2021-09-02 01:29:00 Nia Lawrence [facility] URINALYSIS W/ REFLEX URINE 2021-09-02 01:29:00 Nia Lawrence [facility] XR CHEST 1 VIEW PORTABLE / 2021-09-02 01:02:00 Nia Lawrence [facility] BEDSIDE [facility] CBC W/PLT COUNT & AUTO 2021-09-01 22:55:[address] [facility] LACTIC ACID, VENOUS 2021-09-01 22:55:00 Nia Lawrence [facility] PT/APTT 2021-09-01 22:55:00 Nia Lawrence [facility] HEPATIC FUNCTION PANEL 2021-09-01 22:55:00 Nia Lawrence [facility] BASIC METABOLIC PANEL 2021-09-01 22:55:00 Nia Lawrence [facility] MAGNESIUM 2021-09-01 22:55:00 Nia Lawrence [facility] PHOSPHORUS 2021-09-01 22:55:00 Nia Lawrence [facility] CBC W/PLT COUNT & AUTO 2021-09-01 22:55:[address] [facility] (CELLAVISION MANUAL DIFF) 2021-09-01 22:55:00 Nia Lawrence sa [facility] POCT-GLUCOSE METER 2021-09-01 22:36:00 Dawna Anguiano [facility] CT ABDOMEN PELVIS WO 2021-08-31 05:50:00 [facility] CONTRAST [facility] HC COMPLETE BLD COUNT 2021-08-31 04:21:00 [facility] W/AUTO DIFF [facility] 2021-08-31 04:21:00 [facility] PANEL [facility] LACTIC ACID, I-STAT 2021-08-31 04:21:00 [facility] ESTIMATED GFR 2021-08-31 04:21:00 [facility] SPIROMETRY, DIFFUSION, 2021-08-25 19:27:26 [facility] LUNG VOLUMES, MIPS/MEPS XR CHEST 2 VW 2021-08-25 18:00:20 [facility] XR PANOREX 2021-08-25 17:59:56 [facility] POC GLUCOSE 2021-08-25 13:51:00 [facility] spital SALEEM-POSEY VIRUS 2021-08-25 11:08:00 [facility] ANTIBODY TEST HC COMPLETE BLD COUNT 2021-08-25 11:08:00 [facility] W/AUTO DIFF COMPREHENSIVE METABOLIC 2021-08-25 11:08:00 [facility] PANEL PROTHROMBIN TIME WITH INR 2021-08-25 11:08:00 [facility] ESTIMATED GFR 2021-08-25 11:08:00 Jennifer Ghosh spital POC GLUCOSE 2021-08-25 03:18:00 Jennifer Ghosh spital POC GLUCOSE 2021-08-25 00:22:00 Jennifer Ghosh spital POC GLUCOSE 2021-08-24 19:43:00 Jennifer Ghosh CREATININE LEVEL, URINE, 2021-08-24 18:13:00 Jennifer Ghosh [facility] TIMED PROTEIN, URINE, TIMED 2021-08-24 18:13:00 Jennifer Ghosh [facility] CV SELECTIVE CORONARY 2021-08-24 16:44:00 Cabrera F[facility] ANGIOGRAPHY [place] HC COMPLETE BLD COUNT 2021-08-24 11:01:00 [facility] DIFF [facility] BASIC METABOLIC PANEL 2021-08-24 11:01:00 [facility] FUNCTION [facility]EL 2021-08-24 11:01:00 [facility] [place] MAGNESIUM LEVEL 2021-08-24 11:01:00 Jory Girard [facility] PROTHROMBIN TIME WITH INR 2021-08-24 11:01:00 [facility]FR 2021-08-24 11:01:00 Jory Girard [place] POC GLUCOSE 2021-08-24 03:07:00 Jennifer Ghosh spital POC GLUCOSE 2021-08-24 00:11:00 Jennifer Ghosh COVID-19 QUALITATIVE 2021-08-23 22:15:00 Dayo Moeller [facility] RT-PCR POC GLUCOSE 2021-08-23 19:17:00 Jennifer Ghosh spital POC GLUCOSE 2021-08-23 14:05:00 Jennifer Ghoshtal HC COMPLETE BLD COUNT 2021-08-23 11:49:00 [facility]AUTO DIFF [facility] BASIC METABOLIC PANEL 2021-08-23 11:49:00 [facility] HEPATIC FUNCTION PANEL 2021-08-23 11:49:00 [facility] [place] MAGNESIUM LEVEL 2021-08-23 11:49:00 [facility] PROTHROMBIN TIME WITH INR 2021-08-23 11:49:00 [facility] ALPHA FETOPROTEIN 2021-08-23 11:49:00 [facility] ALPHA-1 ANTITRYPSIN LEVEL 2021-08-23 11:49:00 [facility] ANTI SMOOTH MUSCLE AB 2021-08-23 11:49:00 [facility] SCREEN C-REACTIVE PROTEIN 2021-08-23 11:49:00 [facility] CANCER ANTIGEN 125 2021-08-23 11:49:00 [facility] CANCER ANTIGEN 19-9 2021-08-23 11:49:00 [facility] CARCINOEMBRYONIC ANTIGEN 2021-08-23 11:49:00 [facility] (CEA) CERULOPLASMIN LEVEL 2021-08-23 11:49:00 [facility] CORTISOL LEVEL, RANDOM 2021-08-23 11:49:00 [facility] CORTISOL, FREE BY 2021-08-23 11:49:00 [facility] ED/LC-MS/MS CYTOMEGALOVIRUS AB, IGG 2021-08-23 11:49:00 [facility] CYTOMEGALOVIRUS AB, IGM 2021-08-23 11:49:00 [facility] DRUG KIM 9, SER/THAIS, SCRN 2021-08-23 11:49:00 [facility] W/RFLX TO CONF FERRITIN LEVEL 2021-08-23 11:49:00 [facility] FIBRINOGEN 2021-08-23 11:49:00 [facility] HEPATITIS A ANTIBODY IGM 2021-08-23 11:49:00 [facility] HEPATITIS A ANTIBODY TOTAL 2021-08-23 11:49:00 [facility] HEPATITIS B CORE ANTIBODY 2021-08-23 11:49:00 [facility] TOTAL HEPATITIS B SURFACE 2021-08-23 11:49:00 [facility] ANTIBODY HEPATITIS B SURFACE 2021-08-23 11:49:00 [facility] ANTIGEN HEPATITIS C ANTIBODY 2021-08-23 11:49:00 [facility] HIV AG/AB COMBINATION 2021-08-23 11:49:00 [facility] HIV-1 RNA, QUALITATIVE TMA 2021-08-23 11:49:00 [facility] HLA TRANSPLANT EVALUATION 2021-08-23 11:49:00 [facility] LIPID PANEL 2021-08-23 11:49:00 [facility] BARBITURATES, S/P, QUANT 2021-08-23 11:49:00 [facility] PARTIAL THROMBOPLASTIN 2021-08-23 11:49:00 [facility] TIME (PTT) PHOSPHATIDYLETHANOL, BLOOD 2021-08-23 11:49:00 [facility] PHOSPHORUS LEVEL 2021-08-23 11:49:00 [facility] PREALBUMIN LEVEL 2021-08-23 11:49:00 [facility] SERUM ELECTROPHORESIS 2021-08-23 11:49:00 [facility] SYPHILIS TREPONEMA SCREEN 2021-08-23 11:49:00 [facility] WITH RPR CONFIRMATION (REVERSE ALGORITHM) T3, FREE 2021-08-23 11:49:00 [facility] TB T-SPOT 2021-08-23 11:49:00 [facility] TOTAL IRON BINDING 2021-08-23 11:49:00 [facility] CAPACITY ZINC LEVEL, SERUM 2021-08-23 11:49:00 [facility] ESTIMATED GFR 2021-08-23 11:49:00 Jory Girard SINGLE ANTIGEN BEADS 2021-08-23 11:49:00 [facility] C1Q CLASS 1 & 2 ANTIBODY 2021-08-23 11:49:00 [facility] CT CHEST WO CONTRAST 2021-08-23 04:25:00 [facility] POC GLUCOSE 2021-08-23 02:55:00 Jennifer Ghosh US CAROTID DUPLEX 2021-08-23 02:40:00 [facility] BILATERAL TTE COMPLETE, WO CONTRAST, 2021-08-22 23:47:00 [facility] W AGITATED SALINE ([id number]) US ABDOMEN COMPLETE 2021-08-22 22:30:00 [facility] ECG 12-LEAD 2021-08-22 21:31:09 [facility] POC GLUCOSE 2021-08-22 13:43:00 Jennifer Ghosh HC COMPLETE BLD COUNT 2021-08-22 10:59:00 [facility] W/AUTO DIFF [facility] BASIC METABOLIC PANEL 2021-08-22 10:59:00 [facility] HEPATIC FUNCTION PANEL 2021-08-22 10:59:00 [facility] MAGNESIUM LEVEL 2021-08-22 10:59:00 Jory Girard PHOSPHORUS LEVEL 2021-08-22 10:59:00 Jory Girard ospimateo Self PROTHROMBIN TIME WITH INR 2021-08-22 10:59:00 Tingolaf Rizvis [facility] ESTIMATED GFR 2021-08-22 10:59:00 Jory Girard POC GLUCOSE 2021-08-22 03:06:00 Jennifer Ghosh spital POC GLUCOSE 2021-08-22 00:27:00 Jennifer Ghosh Ho spital POC GLUCOSE 2021-08-21 19:09:00 Jennifer Ghosh Caodaism Ho spital POC GLUCOSE 2021-08-21 13:46:00 Joyr Girard Ho spital [place] HC COMPLETE BLD COUNT 2021-08-21 10:56:00 Ting Pierson [facility] W/AUTO DIFF [facility] BASIC METABOLIC PANEL 2021-08-21 10:56:00 Ting Pierson [facility] HEPATIC FUNCTION PANEL 2021-08-21 10:56:00 [facility] MAGNESIUM LEVEL 2021-08-21 10:56:00 Jory Girard spital [place] PHOSPHORUS LEVEL 2021-08-21 10:56:00 Jory Girard H ospital [place] PROTHROMBIN TIME WITH INR 2021-08-21 10:56:00 [facility]IM[facility] GFR 2021-08-21 10:56:00 Jory Girard spital [place] POC GLUCOSE 2021-08-21 03:20:00 Jory Girard spital [place] POC GLUCOSE 2021-08-20 14:56:00 Jennifer Ghosh spital HC COMPLETE BLD COUNT 2021-08-20 10:57:00 Ting Pierson [facility] DIFF [facility] BASIC METABOLIC PANEL 2021-08-20 10:57:00 Ting Pierson [facility] HEPATIC FUNCTION PANEL 2021-08-20 10:57:00 Ting Pierson [facility] MAGNESIUM LEVEL 2021-08-20 10:57:00 Jory Girard spital [place] PHOSPHORUS LEVEL 2021-08-20 10:57:00 Jory Girard H ospital [place] PROTHROMBIN TIME WITH INR 2021-08-20 10:57:00 [facility] GFR 2021-08-20 10:57:00 Jory Girard spital [place] POC GLUCOSE 2021-08-20 02:42:00 Jory Girard spital [place] POC GLUCOSE 2021-08-19 20:04:00 Jory Girard spital [place] HC COMPLETE BLD COUNT 2021-08-19 11:38:00 Ting Pierson [facility] W/AUTO DIFF [facility] BASIC METABOLIC PANEL 2021-08-19 11:38:00 Ting Pierson [facility] HEPATIC FUNCTION PANEL 2021-08-19 11:38:00 Ting Pierson, [facility] MAGNESIUM LEVEL 2021-08-19 11:38:00 Jory Girard PHOSPHORUS LEVEL 2021-08-19 11:38:00 Jory Girard [facility] Self PROTHROMBIN TIME WITH INR 2021-08-19 11:38:00 [facility] EST[facility]ATED GFR 2021-08-19 11:38:00 Jory Girard spital [place] POC GLUCOSE 2021-08-19 03:14:00 Jory Girard spital [place] POC GLUCOSE 2021-08-18 23:30:00 Jory Girard spital [place] POC GLUCOSE 2021-08-18 15:37:00 Jory Girardalo URINE CULTURE 2021-08-18 12:53:00 Jory Girard URINALYSIS SCREEN AND 2021-08-18 11:31:00 [facility] Dangelo [facility] MICROSCOPY, WITH REFLEX TO [place] CULTURE LACTIC ACID LEVEL, SEPSIS 2021-08-18 10:21:00 Orlando Balderrama [facility] - NOW AND REPEAT 2X EVERY 3 HOURS HC COMPLETE BLD COUNT 2021-08-18 10:21:00 Ting Dangelo [facility] W/AUTO DIFF [facility] BASIC METABOLIC PANEL 2021-08-18 10:21:00 [facility] HEPATIC FUNCTION PANEL 2021-08-18 10:21:00 Ting Dangelo, [facility] MAGNESIUM LEVEL 2021-08-18 10:21:00 [facility] PHOS[facility]US L[facility] 2021-08-18 10:21:00 [facility] Jory Pierson H ospital [place] PROTHROMBIN TIME WITH INR 2021-08-18 10:21:00 [facility] [place] ESTIMATED GFR 2021-08-18 10:21:00 [facility] LACTIC ACID LEVEL, SEPSIS 2021-08-18 07:56:00 [facility] - NOW AND REPEAT 2X EVERY 3 HOURS BLOOD CULTURE, AEROBIC & 2021-08-18 05:00:00 [facility] ANAEROBIC [place] ECG 12-LEAD 2021-08-18 04:24:[address] [facility] [address] ABDOMEN PELVIS WO 2021-08-18 04:19:03 [facility] CONTRAST CT HEAD WO CONTRAST 2021-08-18 04:18:21 [facility] LACTIC ACID LEVEL, SEPSIS 2021-08-18 03:37:00 [facility] - NOW AND REPEAT 2X EVERY 3 HOURS B NATRIURETIC PEPTIDE 2021-08-18 03:37:00 [facility] PROTHROMBIN TIME WITH INR 2021-08-18 03:20:00 [facility] AMMONIA LEVEL 2021-08-18 03:20:00 [facility] TROPONIN T 2021-08-18 03:20:00 [facility] XR CHEST 1 VW PORTABLE 2021-08-18 03:14:19 [facility] HC COMPLETE BLD COUNT 2021-08-18 03:03:00 [facility] W/AUTO DIFF COMPREHENSIVE METABOLIC 2021-08-18 03:03:00 [facility] PANEL ESTIMATED GFR 2021-08-18 03:03:00 [facility] RESPIRATORY PATHOGEN PANEL 2021-08-18 03:03:00 [facility] WITH COVID-19 RT-PCR ECG ED PRELIMINARY 2021-08-18 02:54:33 [facility] INTERPRETATION COVID-19 QUALITATIVE 2021-08-11 05:31:00 [facility] RT-PCR [facility] COMPREHENSIVE METABOLIC 2021-08-11 05:30:00 [facility] PANEL [facility] HC COMPLETE BLD COUNT 2021-08-11 05:30:00 [facility] W/AUTO DIFF [facility] LACTIC ACID, I-STAT 2021-08-11 05:30:00 [facility] ESTIMATED GFR 2021-08-11 05:30:00 [facility] ECG 12-LEAD 2021-08-11 05:15:35 [facility] URINALYSIS 2021-08-11 05:00:00 [facility] XR CHEST 1 VW PORTABLE 2021-08-11 04:27:00 [facility] LACTIC ACID, I-STAT 2021-06-28 22:37:00 [facility] 2021-06-28 21:45:00 Romero Limon Ho spital HC COMPLETE BLD COUNT 2021-06-28 20:01:00 Romero Limon [facility] W/AUTO DIFF PROTHROMBIN TIME WITH INR, 2021-06-28 20:01:00 Romero Limon [facility] I-STAT COMPREHENSIVE METABOLIC 2021-06-28 20:01:00 Romero Limon [facility] PANEL LACTIC ACID, I-STAT 2021-06-28 20:01:00 Romero Limonis t [facility] SEDIMENTATION RATE 2021-06-28 20:01:00 Romero Limon [facility] ESTIMATED GFR 2021-06-28 20:01:00 [facility]ALITATIVE 2021-06-28 20:01:00 [facility] BLOOD CULTURE, AEROBIC & 2021-06-28 20:01:00 Romero Limon [facility] ANAEROBIC HC COMPLETE BLD COUNT 2021-06-21 11:20:00 Dinakar, [facility] W/AUTO DIFF Formerly [facility] BASIC METABOLIC PANEL 2021-06-21 11:20:00 Dinakar, [facility] HEPATIC FUNCTION PANEL 2021-06-21 11:20:00 Dinakar, [facility] MAGNESIUM LEVEL 2021-06-21 11:20:00 Dinakar, [facility] PROTHROMBIN TIME WITH INR 2021-06-21 11:20:00 Dinakar, [facility] PHOSPHORUS LEVEL 2021-06-21 11:20:00 Dinakar, [facility] ospital Formerly [facility] ESTIMATED GFR 2021-06-21 11:20:00 Dinakar, [facility] PHOSPHATIDYLETHANOL, BLOOD 2021-06-21 11:20:00 [facility] URINE DRUGS OF ABUSE 2021-06-21 10:11:00 [facility] SCREEN URINALYSIS SCREEN AND 2021-06-21 10:10:00 [facility] MICROSCOPY, WITH REFLEX TO CULTURE URINE CULTURE 2021-06-21 10:10:00 [facility] COVID-19 SEROLOGY PATIENT 2021-06-20 17:52:00 [facility] SURVEILLANCE Formerly [facility] COVID-19 ANTI-SPIKE IGG 2021-06-20 17:52:00 Dinakar, [facility] ANTIBODY TITER Former[facility] HC COMPLETE BLD COUNT 2021-06-20 11:03:00 Dinakar, [facility] W/AUTO DIFF [facility] BASIC METABOLIC PANEL 2021-06-20 11:03:00 Dinakar, [facility] HEPATIC FUNCTION PANEL 2021-06-20 11:03:00 Dinakar, [facility] MAGNESIUM LEVEL 2021-06-20 11:03:00 Dinakar, Pierce Duckworth spimateo Blayne PROTHROMBIN TIME WITH INR 2021-06-20 11:03:00 Dinakar, [facility] PHOSPHORUS LEVEL 2021-06-20 11:03:00 Dinakar, Pierce Arcos ospital [place] ESTIMATED GFR 2021-06-20 11:03:00 Dinakar, Pierce lynn [facility] XR ABDOMEN 1 VW PORTABLE 2021-06-20 00:11:00 Mukesh [facility] AMMONIA LEVEL 2021 11:27:00 Jennifer Ghosh spital HC COMPLETE BLD COUNT 2021 11:24:00 [facility] DIFF PROTHROMBIN TIME WITH INR 2021 11:24:00 Jennifer Ghosh [facility] COMPREHENSIVE METABOLIC 2021 11:24:00 [facility] PANEL PHOSPHORUS LEVEL 2021 11:24:00 Jennifer Ghosh ospital MAGNESIUM LEVEL 2021 11:24:00 Jennifer Ghosh spital HEMOGLOBIN A1C 2021 11:24:00 Jennifer Ghosh spital THYROID STIMULATING 2021 11:24:00 [facility] H[facility] T4 2021 11:24:00 Jennifer Ghosh spital VITAMIN D 25 HYDROXY LEVEL 2021 11:24:00 [facility] ESTIMATED GFR 2021 11:24:00 Jennifer Ghosh spital LACTIC ACID, I-STAT 2021 01:31:00 [facility] COVID-19 QUALITATIVE 2021 01:21:00 Diana Bangura [facility] RT-PCR CLOSTRIDIUM DIFFICILE 2021 00:30:00 [facility] TOXIN ENTERIC BACTERIAL PANEL 2021 00:30:00 [facility]IS 2021 00:09:00 [facility] COMPREHENSIVE METABOLIC 2021-06-18 22:51:00 [facility] PANEL AMYLASE LEVEL 2021-06-18 22:51:00 [facility] ESTIMATED GFR 2021-06-18 22:51:00 [facility] COMPLETE BLD COUNT 2021-06-18 21:51:00 [facility] W/AUTO DIFF [facility] METABOLIC 2021-06-18 21:51:00 [facility] PANEL LACTIC ACID, I-STAT 2021-06-18 21:51:00 [facility] AMYLASE LEVEL 2021-06-18 21:51:00 [facility] ESTIMATED GFR 2021-06-18 21:51:00 [facility] AMMONIA LEVEL 2021-06-18 21:47:00 [facility] HC COMPLETE BLD COUNT 2021-06-02 09:45:00 [facility] W/AUTO DIFF PROTHROMBIN TIME WITH INR 2021-06-02 09:45:00 [facility] BASIC METABOLIC PANEL 2021-06-02 09:45:00 [facility] HEPATIC FUNCTION PANEL 2021-06-02 09:45:00 [facility] PHOSPHORUS LEVEL 2021-06-02 09:45:00 [facility] MAGNESIUM LEVEL 2021-06-02 09:45:00 [facility] H ospital ESTIMATED GFR 2021-06-02 09:45:00 [facility] ospital US ABDOMINAL LIMITED 2021-06-01 21:06:20 Joana Ling [facility] VENIPUNC NEED PHYS 2021-06-01 14:32:45 Brian Linda [facility] SKILL,DX OR RX HC COMPLETE BLD COUNT 2021-06-01 10:30:00 [facility] W/AUTO DIFF PROTHROMBIN TIME WITH INR 2021-06-01 10:30:00 [facility] BASIC METABOLIC PANEL 2021-06-01 10:30:00 [facility] HEPATIC FUNCTION PANEL 2021-06-01 10:30:00 [facility] PHOSPHORUS LEVEL 2021-06-01 10:30:00 [facility] MAGNESIUM LEVEL 2021-06-01 10:30:00 [facility] ospital HEMOGLOBIN A1C 2021-06-01 10:30:00 [facility] ospital THYROID STIMULATING 2021-06-01 10:30:00 [facility] HORMONE T4 2021-06-01 10:30:00 [facility] VITAMIN D 25 HYDROXY LEVEL 2021-06-01 10:30:00 [facility] ZINC LEVEL, SERUM 2021-06-01 10:30:00 [facility] ALPHA FETOPROTEIN 2021-06-01 10:30:00 [facility] AMMONIA LEVEL 2021-06-01 10:30:00 [facility] ESTIMATED GFR 2021-06-01 10:30:00 [facility] PHOSPHATIDYLETHANOL, BLOOD 2021-06-01 10:30:00 [facility] URINE CULTURE 2021-06-01 02:48:00 [facility] BLOOD CULTURE, AEROBIC & 2021-06-01 02:43:00 [facility] ANAEROBIC BLOOD CULTURE, AEROBIC & 2021-06-01 02:42:00 [facility] ANAEROBIC URINALYSIS SCREEN AND 2021-06-01 02:40:00 [facility] MICROSCOPY, WITH REFLEX TO CULTURE URINE DRUGS OF ABUSE 2021-06-01 02:40:00 [facility] SCREEN URIC ACID LEVEL 2021-06-01 02:38:00 [facility] PROTHROMBIN TIME WITH INR 2021-06-01 02:38:00 [facility] PHOSPHORUS LEVEL 2021-06-01 02:38:00 [facility] PARTIAL THROMBOPLASTIN 2021-06-01 02:38:00 [facility] TIME (PTT) MAGNESIUM LEVEL 2021-06-01 02:38:00 [facility] HEPATIC FUNCTION PANEL 2021-06-01 02:38:00 [facility] LDH 2021-06-01 02:38:00 [facility] LACTIC ACID LEVEL 2021-06-01 02:38:00 [facility] FIBRINOGEN 2021-06-01 02:38:00 [facility] HC COMPLETE BLD COUNT 2021-06-01 02:38:00 [facility] W/AUTO DIFF BASIC METABOLIC PANEL 2021-06-01 02:38:00 [facility] AMMONIA LEVEL 2021-06-01 02:38:00 [facility] ESTIMATED GFR 2021-06-01 02:38:00 [facility] COVID-19 SEROLOGY PATIENT 2021-06-01 02:38:00 [facility] SURVEILLANCE COVID-19 ANTI-SPIKE IGG 2021-06-01 02:38:00 [facility] ANTIBODY TITER ECG 12-LEAD 2021-06-01 01:06:10 [facility] XR ABDOMEN 1 VW PORTABLE 2021-06-01 01:06:00 [facility] XR CHEST 1 VW PORTABLE 2021-06-01 01:02:00 Heriberto York [facility] COVID-19 QUALITATIVE 2021-06-01 00:37:00 Heriberto York [facility] RT-PCR HC COMPLETE BLD COUNT 2021-05-27 10:09:00 [facility] W/AUTO DIFF [facility] BASIC METABOLIC PANEL 2021-05-27 10:09:00 [facility] HEPATIC FUNCTION PANEL 2021-05-27 10:09:00 [facility] [place] MAGNESIUM LEVEL 2021-05-27 10:09:00 Jory Girard PHOSPHORUS LEVEL 2021-05-27 10:09:00 Jory Girard ospimateo Self PROTHROMBIN TIME WITH INR 2021-05-27 10:09:00 [facility] [place] ESTIMATED GFR 2021-05-27 10:09:00 Jory Girard spimateo Self VENOUS BLOOD GAS 2021-05-26 23:37:00 Nia Faustin HC COMPLETE BLD COUNT 2021-05-26 09:02:00 [facility]FF [place] PROTHROMBIN TIME WITH INR 2021-05-26 09:02:00 [facility] COVID-19 SEROLOGY PATIENT 2021-05-26 09:02:00 Abe Partida [facility] SURVEILLANCE Tom SMEAR REVIEW 2021-05-26 09:02:00 Jory Girard PHOSPHATIDYLETHANOL, BLOOD 2021-05-26 09:02:00 [facility]SPI[facility] IGG 2021-05-26 09:02:00 Abe Partida [facility] ANTIBODY TITER Tom BASIC METABOLIC PANEL 2021-05-26 09:00:00 [facility] HEPATIC FUNCTION PANEL 2021-05-26 09:00:00 [facility] MAGNESI[facility] L[facility]EL 2021-05-26 09:00:00 Jory Girard PHOSPHORUS LEVEL 2021-05-26 09:00:00 Jory Girard ospimateo Self ALPHA FETOPROTEIN 2021-05-26 09:00:00 [facility] ZINC LEVEL, SERUM 2021-05-26 09:00:00 [facility] ESTIMATED GFR 2021-05-26 09:00:00 Jory Girard URINALYSIS SCREEN AND 2021-05-25 23:41:00 [facility] MICROSCOPY, WITH REFLEX TO [place] CULTURE URINE DRUGS OF ABUSE 2021-05-25 23:41:00 Ting Rizvis [facility] SCREEN [place] URINE CULTURE 2021-05-25 23:41:00 Jory Girard US HEPATIC 2021-05-25 20:43:26 Jory Girard US ABDOMINAL DOPPLER 2021-05-25 20:40:00 Ting Pierson [facility] [place] HC COMPLETE BLD COUNT 2021-05-25 18:10:00 [facility] W/AUTO DIFF [place] SMEAR REVIEW 2021-05-25 18:10:00 Jory Girard VENIPUNC NEED PHYS 2021-05-25 15:59:39 Tristin Hunt [facility] SKILL,DX OR RX CBC WITH PLATELET AND 2021-05-25 13:57:00 [facility] DIFFERENTIAL [facility] COMPREHENSIVE METABOLIC 2021-05-25 13:57:00 [facility] [place] ESTIMATED GFR 2021-05-25 13:57:00 Jory Girard LACTIC ACID, I-STAT 2021-05-25 00:58:00 [facility]AL[facility]ATIVE 2021-05-25 00:00:00 Romero Limon [facility] RT-PCR CT ABDOMEN PELVIS WO 2021-05-24 23:16:57 Romero Limon [facility] CONTRAST URINALYSIS 2021-05-24 22:19:00 Romero Limon [facility] HC COMPLETE BLD COUNT 2021-05-24 22:13:00 Romero Limon [facility] W/AUTO DIFF COMPREHENSIVE METABOLIC 2021-05-24 22:13:00 Romero Limon [facility] PANEL AMYLASE LEVEL 2021-05-24 22:13:00 Romero Limon [facility] LACTIC ACID, I-STAT 2021-05-24 22:13:00 Romero Limon [facility] ESTIMATED GFR 2021-05-24 22:13:00 Romero Limon [facility] BLOOD CULTURE, AEROBIC & 2021-05-24 22:00:00 Romero Limon [facility] ANAEROBIC CBC HEMOGRAM 2020-11-23 05:55:00 [facility] PROTHROMBIN TIME WITH INR 2020-11-23 05:55:00 [facility] COMPREHENSIVE METABOLIC 2020-11-23 05:55:00 [facility] PANEL [place] ESTIMATED GFR 2020-11-23 05:55:00 [facility] COVID-19 QUALITATIVE 2020-11-23 01:57:00 Wild Kovacs [facility] RT-PCR [place] LACTIC ACID, I-STAT 2020-11-23 01:40:00 Romero Limon [facility] CT HEAD WO CONTRAST 2020-11-22 23:20:00 Romero Limon [facility] HC COMPLETE BLD COUNT 2020-11-22 22:53:00 Romero Limon [facility] W/AUTO DIFF COMPREHENSIVE METABOLIC 2020-11-22 22:53:00 Romero Limon [facility] PANEL LACTIC ACID, I-STAT 2020-11-22 22:53:00 Romero Limon [facility] AMMONIA LEVEL 2020-11-22 22:53:00 Romero Limon spital VENOUS BLOOD GAS 2020-11-22 22:53:00 Romero Limon ospital ESTIMATED GFR 2020-11-22 22:53:00 Romero Limon spital XR ABDOMEN ACUTE INC CHEST 2020-11-02 22:51:00 [facility]Cliff [facility] 1V ESTIMATED GFR 2020-11-02 21:55:00 [facility] HC COMPLETE BLD COUNT 2020-11-02 21:55:00 [facility] W/AUTO DIFF COMPREHENSIVE METABOLIC 2020-11-02 21:55:00 [facility] PANEL PROTHROMBIN TIME WITH INR 2020-11-02 21:55:00 [facility] COVID-19 QUALITATIVE 2020-11-02 21:05:00 [facility] RT-PCR NM BRAIN SPECT W I 123 2020-10-26 19:02:00 [facility] COMPLETE BLD COUNT 2020-10-24 10:15:00 [facility] W/AUTO DIFF BASIC METABOLIC PANEL 2020-10-24 10:15:00 [facility] HEPATIC FUNCTION PANEL 2020-10-24 10:15:00 [facility] MAGNESIUM LEVEL 2020-10-24 10:15:00 [facility] PHOSPHORUS LEVEL 2020-10-24 10:15:00 [facility] PROTHROMBIN TIME WITH INR 2020-10-24 10:15:00 [facility] HEMOGLOBIN A1C 2020-10-24 10:15:00 [facility] THYROID STIMULATING 2020-10-24 10:15:00 [facility] HORMONE T4 2020-10-24 10:15:00 [facility] VITAMIN D 25 HYDROXY LEVEL 2020-10-24 10:15:00 [facility] ZINC LEVEL, SERUM 2020-10-24 10:15:00 [facility] ALPHA FETOPROTEIN 2020-10-24 10:15:00 [facility] ESTIMATED GFR 2020-10-24 10:15:00 [facility] URINE DRUGS OF ABUSE 2020-10-24 10:00:00 [facility] SCREEN LACTIC ACID LEVEL, SEPSIS 2020-10-24 06:20:00 [facility] - NOW AND REPEAT 2X EVERY 3 HOURS LACTIC ACID LEVEL, SEPSIS 2020-10-24 02:25:00 [facility] - NOW AND REPEAT 2X EVERY 3 HOURS XR CHEST 1 VW PORTABLE 2020-10-24 00:08:00 Rehrer, [facility] BLOOD CULTURE, AEROBIC & 2020-10-23 23:31:00 Rehrer, [facility] ANAEROBIC RESPIRATORY PATHOGEN PANEL 2020-10-23 23:31:00 Rehrer, [facility] WITH COVID-19 RT-PCR COMPREHENSIVE METABOLIC 2020-10-23 23:31:00 [facility] PHOSPHORUS LEVEL 2020-10-23 23:31:00 Rehrer, [facility] MAGNESIUM LEVEL 2020-10-23 23:31:00 Rehrer, [facility] LACTIC ACID LEVEL, SEPSIS 2020-10-23 23:31:00 [facility] - NOW AND REPEAT 2X EVERY 3 HOURS LIPASE LEVEL 2020-10-23 23:31:00 Rehrer, [facility] ESTIMATED GFR 2020-10-23 23:31:00 Rehrer, [facility] HC COMPLETE BLD COUNT 2020-10-23 23:20:00 Rehrer, [facility] W/AUTO DIFF PROTHROMBIN TIME WITH INR 2020-10-23 23:20:00 Rehrer, [facility] PARTIAL THROMBOPLASTIN 2020-10-23 23:20:00 Rehrer, [facility] TIME (PTT) AMMONIA LEVEL 2020-10-23 23:20:00 Rehrer, [facility] HC COMPLETE BLD COUNT 2020-10-10 00:05:00 [facility] W/AUTO DIFF COMPREHENSIVE METABOLIC 2020-10-10 00:05:00 [facility] PANEL LACTIC ACID, I-STAT 2020-10-10 00:05:00 [facility] AMMONIA LEVEL 2020-10-10 00:05:00 [facility] ESTIMATED GFR 2020-10-10 00:05:00 [facility] URINALYSIS 2020-10-09 23:32:00 [facility] ECG 12-LEAD 2020-10-09 23:18:11 [facility] HC COMPLETE BLD COUNT 2020-09-21 10:28:00 [facility] W/AUTO DIFF BASIC METABOLIC PANEL 2020-09-21 10:28:00 [facility] HEPATIC FUNCTION PANEL 2020-09-21 10:28:00 [facility] MAGNESIUM LEVEL 2020-09-21 10:28:00 [facility] PHOSPHORUS LEVEL 2020-09-21 10:28:00 [facility] PROTHROMBIN TIME WITH INR 2020-09-21 10:28:00 [facility] MISCELLANEOUS REFERRAL 2020-09-21 10:28:00 Annette Mayorga [facility] TEST VITAMIN B12 LEVEL 2020-09-21 10:28:00 [facility] FOLATE LEVEL 2020-09-21 10:28:00 [facility] ESTIMATED GFR 2020-09-21 10:28:00 [facility] COVID-19 QUALITATIVE 2020-09-20 20:51:00 Robby Perez [facility] RT-PCR Gabriel HC COMPLETE BLD COUNT 2020-09-20 12:08:00 [facility] W/AUTO DIFF BASIC METABOLIC PANEL 2020-09-20 12:08:00 [facility] HEPATIC FUNCTION PANEL 2020-09-20 12:08:00 [facility] MAGNESIUM LEVEL 2020-09-20 12:08:00 [facility] PHOSPHORUS LEVEL 2020-09-20 12:08:00 [facility] PROTHROMBIN TIME WITH INR 2020-09-20 12:08:00 [facility] HEMOGLOBIN A1C 2020-09-20 12:08:00 [facility] THYROID STIMULATING 2020-09-20 12:08:00 [facility] HORMONE T4 2020-09-20 12:08:00 [facility] VITAMIN D 25 HYDROXY LEVEL 2020-09-20 12:08:00 [facility] ZINC LEVEL, SERUM 2020-09-20 12:08:00 [facility] ALPHA FETOPROTEIN 2020-09-20 12:08:00 [facility] ESTIMATED GFR 2020-09-20 12:08:[address] [facility] CERVICAL SPINE WO 2020-09-20 06:50:26 [facility] PELVIS WO CONTRAST 2020-09-20 06:50:16 Bonny Rod [facility] CT HEAD WO CONTRAST 2020-09-20 06:50:07 [facility] E/M 2020-09-20 04:05:41 [facility] [place] URINE CULTURE 2020-09-20 04:00:00 Bonny Rod spital [place] URINALYSIS SCREEN AND 2020-09-20 04:00:00 [facility] TO [place] CULTURE URINE DRUGS OF ABUSE 2020-09-20 04:00:00 [facility] [place] MAGNESIUM LEVEL 2020-09-20 04:00:00 Bonny Rod spital [place] TROPONIN 2020-09-20 04:00:00 Bonny Rod spital [place] XR KNEE 3 VW LEFT 2020-09-20 02:06:29 Marcel [facility] XR KNEE 3 VW RIGHT 2020-09-20 02:06:09 Marcel [facility] XR SHOULDER 2+ VW RIGHT 2020-09-20 02:05:46 [facility] 2020-09-20 02:05:00 [facility]FF [place] PROTHROMBIN TIME WITH INR 2020-09-20 02:05:00 Bonny Rod [facility] PARTIAL THROMBOPLASTIN 2020-09-20 02:05:00 Bonny Rod [facility] TIME (PTT) [place] COMPREHENSIVE METABOLIC 2020-09-20 02:05:00 [facility] [place] TROPONIN 2020-09-20 02:05:00 Bonny Rod spital [place]e B NATRIURETIC PEPTIDE 2020-09-20 02:05:00 [facility] 2020-09-20 02:05:00 Bonny Rod spital [place] ALCOHOL LEVEL, BLOOD 2020-09-20 02:05:00 Bonny Rod [facility] ESTIMATED GFR 2020-09-20 02:05:00 Bonny Rod [place] Plan of Care Planned Activity Planned Date Details Comments Source Future Scheduled 2024-08-23 Lipid panel (procedure) [facility] 00:00:00 [code = 66196027] Medical Ce nter Future Scheduled 2024-08-23 Lipid panel (procedure) [facility] 00:00:00 [code = 03422584] Medical Ce nter Future Scheduled 2024-08-23 Lipid panel (procedure) [facility] 00:00:00 [code = 24850819] Medical Ce nter Future Scheduled 2024-08-23 Lipid panel (procedure) [facility] 00:00:00 [code = 20882209] Medical Ce nter Future Scheduled 2024-08-23 Lipid panel (procedure) [facility] 00:00:00 [code = 89597531] Medical Ce nter Future Scheduled 2024-08-23 Lipid panel (procedure) [facility] 00:00:00 [code = 15997880] Medical Ce nter Future Scheduled 2024-08-23 Lipid panel (procedure) [facility] 00:00:00 [code = 09424236] Medical Ce nter Future Scheduled 2024-08-23 Lipid panel (procedure) [facility] 00:00:00 [code = 74485343] Medical Ce nter Future Scheduled 2024-08-23 Lipid panel (procedure) [facility] 00:00:00 [code = 95355346] Medical Ce nter Future Scheduled 2023-04-12 INFLUENZA [...] (#1)] Future Scheduled 2021-09-12 BREAST CANCER SCREENING [facility] 12:13:11 [code = BREAST CANCER Hospit al SCREENING] Future Scheduled 2021-09-12 COVID-19 VACCINE (2 - [facility] 12:13:11 [facility] series) [code = COVID-19 VACCINE (2 - [facility] series)] Future Scheduled 2021-09-12 INFLUENZA VACCINE [code = [facility] 12:13:11 INFLUENZA VACCINE] Hospital Future Scheduled 2021-09-12 Screening for malignant [facility] 12:13:11 neoplasm of cervix Hospital (procedure) [code = 394349194] Future Scheduled 2021-08-[address] [facility]:00 [code = 86696623] Medical Ce nter Future Scheduled 1982 Screening for malignant [facility] 00:00:00 neoplasm of cervix Medical C enter (procedure) [code = 546515733] Future Scheduled 1982 Screening for malignant [facility] 00:00:00 neoplasm of cervix Medical C enter (procedure) [code = 950748258] Future Scheduled 1982 Screening for malignant [facility] 00:00:00 neoplasm of cervix Medical C enter (procedure) [code = 057993361] Future Scheduled 1982 Screening for malignant [facility] 00:00:00 neoplasm of cervix Medical C enter (procedure) [code = 747978982] Future Scheduled 1982 Screening for malignant [facility] 00:00:00 neoplasm of cervix Medical C enter (procedure) [code = 574863934] Future Scheduled 1982 Screening for malignant [facility] 00:00:00 neoplasm of cervix Medical C enter (procedure) [code = 737560795] Future Scheduled 1982 Screening for malignant [facility] 00:00:00 neoplasm of cervix Medical C enter (procedure) [code = 521782912] Future Scheduled 1982 Screening for malignant [facility] 00:00:00 neoplasm of cervix Medical C enter (procedure) [code = 421984188] Future Scheduled 1982 Screening for malignant [facility] 00:00:00 neoplasm of cervix Medical C enter (procedure) [code = 603282964] Future Scheduled 1982 Screening for malignant [facility] 00:00:00 neoplasm of cervix Medical C enter (procedure) [code = 241100584] Future Scheduled 1980 DTAP/TDAP/TD VACCINES (1 [facility] [...] screening Medical Cent er (procedure) [code = 225953768] Future Scheduled [address] [facility] virus screening [facility] (procedure) [code = 691811330] Future Scheduled [address] [facility] 00:00:00 virus screening [facility] (procedure) [code = 524843707] Future Scheduled [address] [facility] 00:00:00 virus screening [facility] (procedure) [code = 369180857] Future Scheduled 1973 COVID-19 VACCINE (1) [facility] [...] breast Medical C enter (procedure) [code = 485653863] Future Scheduled 1961 Screening for malignant [facility] 00:00:00 neoplasm of colon Medical Ce nter (procedure) [code = 629830039] Future Scheduled 1961 Screening for malignant [facility] 00:00:00 neoplasm of breast Medical C enter (procedure) [code = 847991586] Future Scheduled 1961 CT Colonography (combo) [facility] 00:00:00 [code = CT Colonography [facility] (combo)] Future Scheduled 1961 Screening for malignant [facility] 00:00:00 neoplasm of colon Medical Ce nter (procedure) [code = 396667040] Future Scheduled 1961 Screening for malignant [facility] 00:00:00 neoplasm of colon Medical Ce nter (procedure) [code = 385894988] Future Scheduled 1961 Screening for malignant [facility] 00:00:00 neoplasm of colon Medical Ce nter (procedure) [code = 233170807] Future Scheduled 1961 Screening for malignant [facility] 00:00:00 neoplasm of colon Medical Ce nter (procedure) [code = 512852751] Future Scheduled 1961 Sigmoidoscopy [facility]code [facility]] Medical Cente r Future Scheduled 1961 Screening for malignant [facility] 00:00:00 neoplasm of breast Medical C enter (procedure) [code = 569800480] Future Scheduled 1961 CT Colonography (combo) [facility] 00:00:00 [code = CT Colonography [facility] (combo)] Future Scheduled 1961 Screening for malignant [facility] 00:00:00 neoplasm of colon Medical Ce nter (procedure) [code = 868051159] Future Scheduled 1961 Screening for malignant [facility] 00:00:00 neoplasm of colon Medical Ce nter (procedure) [code = 602446921] Future Scheduled 1961 Screening for malignant [facility] 00:00:00 neoplasm of colon Medical Ce nter (procedure) [code = 157845989] Future Scheduled 1961 Screening for malignant [facility] 00:00:00 neoplasm of colon Medical Ce nter (procedure) [code = 628958880] Future Scheduled 1961 Sigmoidoscopy [facility]code [facility]] Medical Cente r Future Scheduled 1961 Screening for malignant [facility] 00:00:00 neoplasm of breast Medical C enter (procedure) [code = 813420062] Future Scheduled 1961 CT Colonography (combo) [facility] 00:00:00 [code = CT Colonography [facility] (combo)] Future Scheduled 1961 Screening for malignant [facility] 00:00:00 neoplasm of colon Medical Ce nter (procedure) [code = 401051696] Future Scheduled 1961 Screening for malignant [facility] 00:00:00 neoplasm of colon Medical Ce nter (procedure) [code = 779217695] Future Scheduled 1961 Screening for malignant [facility] 00:00:00 neoplasm of colon Medical Ce nter (procedure) [code = 908055970] Future Scheduled 1961 Screening for malignant [facility] 00:00:00 neoplasm of colon Medical Ce nter (procedure) [code = 288892573] Future Scheduled 1961 Sigmoidoscopy [facility]code [facility]] Medical Cente r Future Scheduled 1961 Screening for malignant [facility] 00:00:00 neoplasm of breast Medical C enter (procedure) [code = 326393112] Future Scheduled 1961 CT Colonography (combo) [facility] 00:00:00 [code = CT Colonography [facility] (combo)] Future Scheduled 1961 Screening for malignant [facility] 00:00:00 neoplasm of colon Medical Ce nter (procedure) [code = 593004380] Future Scheduled 1961 Screening for malignant [facility] 00:00:00 neoplasm of colon Medical Ce nter (procedure) [code = 887368712] Future Scheduled 1961 Screening for malignant [facility] 00:00:00 neoplasm of colon Medical Ce nter (procedure) [code = 245618850] Future Scheduled 1961 Screening for malignant [facility] 00:00:00 neoplasm of colon Medical Ce nter (procedure) [code = 842062858] Future Scheduled 1961 Sigmoidoscopy [facility]code [facility]] Medical Cente r Future Scheduled 1961 Screening for malignant [facility] 00:00:00 neoplasm of breast Medical C enter (procedure) [code = 577252808] Future Scheduled 1961 CT Colonography (combo) [facility] 00:00:00 [code = CT Colonography [facility] (combo)] Future Scheduled 1961 Screening for malignant [facility] 00:00:00 neoplasm of colon Medical Ce nter (procedure) [code = 221762864] Future Scheduled 1961 Screening for malignant [facility] 00:00:00 neoplasm of colon Medical Ce nter (procedure) [code = 751909438] Future Scheduled 1961 Screening for malignant [facility] 00:00:00 neoplasm of colon Medical Ce nter (procedure) [code = 155906336] Future Scheduled 1961 Screening for malignant [facility] 00:00:00 neoplasm of colon Medical Ce nter (procedure) [code = 251756446] Future Scheduled 1961 Sigmoidoscopy [code [facility]] Medical Cente r Future Scheduled 1961 Screening for malignant [facility] 00:00:00 neoplasm of breast Medical C enter (procedure) [code = 392192381] Future Scheduled 1961 CT Colonography (combo) [facility] 00:00:00 [code = CT Colonography [facility] (combo)] Future Scheduled 1961 Screening for malignant [facility] 00:00:00 neoplasm of colon Medical Ce nter (procedure) [code = 234950374] Future Scheduled 1961 Screening for malignant [facility] 00:00:00 neoplasm of colon Medical Ce nter (procedure) [code = 009501522] Future Scheduled 1961 Screening for malignant [facility] 00:00:00 neoplasm of colon Medical Ce nter (procedure) [code = 915369689] Future Scheduled 1961 Screening for malignant [facility] 00:00:00 neoplasm of colon Medical Ce nter (procedure) [code = 124640384] Future Scheduled 1961 Sigmoidoscopy [code [facility]] Medical [facility] Future Scheduled 1961 Screening for malignant [facility] 00:00:00 neoplasm of breast Medical C enter (procedure) [code = 172877783] Future Scheduled 1961 CT Colonography (combo) [facility] 00:00:00 [code = CT Colonography [facility] (combo)] Future Scheduled 1961 Screening for malignant [facility] 00:00:00 neoplasm of colon Medical Ce nter (procedure) [code = 789341082] Future Scheduled 1961 Screening for malignant [facility] 00:00:00 neoplasm of colon Medical Ce nter (procedure) [code = 094007783] Future Scheduled 1961 Screening for malignant [facility] 00:00:00 neoplasm of colon Medical Ce nter (procedure) [code = 946985130] Future Scheduled 1961 Screening for malignant [facility] 00:00:00 neoplasm of colon Medical Ce nter (procedure) [code = 070938478] Future Scheduled 1961 Sigmoidoscopy [facility]code [facility]] Medical Cente r Future Scheduled 1961 Screening for malignant [facility] 00:00:00 neoplasm of breast Medical C enter (procedure) [code = 375320360] Future Scheduled 1961 CT Colonography (combo) [facility] 00:00:00 [code = CT Colonography [facility] (combo)] Future Scheduled 1961 Screening for malignant [facility] 00:00:00 neoplasm of colon Medical Ce nter (procedure) [code = 205196510] Future Scheduled 1961 Screening for malignant [facility] Test 00:00:00 neoplasm of colon Medical Ce nter (procedure) [code = 520455916] Future Scheduled 1961 Screening for malignant [facility] 00:00:00 neoplasm of colon Medical Ce nter (procedure) [code = 453760029] Future Scheduled 1961 Screening for malignant [facility] 00:00:00 neoplasm of colon Medical Ce nter (procedure) [code = 371544397] Future Scheduled 1961 Sigmoidoscopy [facility]code = [facility]oscopy] Medical Cente r Future Scheduled 1961 Screening for malignant [facility] 00:00:00 neoplasm of breast Medical C enter (procedure) [code = 633656578] Future Scheduled 1961 CT Colonography (combo) [facility] 00:00:00 [code = CT Colonography [facility] (combo)] Future Scheduled 1961 Screening for malignant [facility] 00:00:00 neoplasm of colon Medical Ce nter (procedure) [code = 377507223] Future Scheduled 1961 Screening for malignant [facility] 00:00:00 neoplasm of colon Medical Ce nter (procedure) [code = 992262073] Future Scheduled 1961 Screening for malignant [facility] 00:00:00 neoplasm of colon Medical Ce nter (procedure) [code = 897377791] Future Scheduled 1961 Screening for malignant [facility] 00:00:00 neoplasm of colon Medical Ce nter (procedure) [code = 233226096] Future Scheduled 1961 Sigmoidoscopy [code = [facility] I [facility] Test 00:00:00 Sigmoidoscopy] Medical Cente r Encounters Start End Encounter Admission Attending Care Care Encounter Source Date/Time Date/Time Type Type Clinicians Facility Department ID 2023-03-25 Outpatient Man, [facility] [id number] Common 09:42:00 Fernando [id number] [facility] 2022-04-27 Outpatient Man, [facility] [id number] Common 10:06:00 Fernando [id number] [facility] 2022-03-26 Outpatient ER [facility] Internal [id number] 11:28:10 [facility] 2022-03-22 Outpatient Man, [facility] [id number] Common 08:23:00 Fernando 04112 [facility] 2021-09-06 Outpatient Man, [facility] [id number] Common 13:49:19 Fernando [id number] [facility] 2021-09-06 Outpatient Man, [facility] [id number] Common 13:45:16 Fernando 78004 [facility] 2021-09-06 Outpatient Man, [facility] [id number] Common 12:49:41 Fernando [id number] [facility] 2021-09-06 Outpatient Man, [facility] [id number] Common 12:05:14 Fernando [id number] [facility] 2021-09-06 Outpatient Man, [facility] [id number] Common 12:03:44 Fernando [id number] [facility] 2021-09-06 Outpatient Man, [facility] [id number] Common 11:42:32 Fernando 93343 [facility] 2021-09-06 Outpatient Man, [facility] [id number] Common 11:33:04 Fernando 91066 [facility] 2023-03-29 2023-03-29 Outpatient SFA SFA [id number] [place] 12:51:47 12:51:47 11521 [place] 2023-03-12 2023-03-13 Outpatient HOBEIKA, [facility] Hos [id number] [place] 00:00:00 00:00:00 RIANA 075 Method i 2023-03-07 2023-03-11 Outpatient GURU, IVIS [facility] [id number] [place] 00:00:00 00:00:00 829 Method i 2023-03-07 2023-03-07 Outpatient SAHARIA, [facility] [id number] [place] 00:00:00 00:00:00 PEDRO 540 Method i 2023-03-07 2023-03-07 Outpatient BAMBI, [facility] [id number] [place] 00:00:00 00:00:00 JONNIK 539 Method i 2023-03-07 2023-03-07 Outpatient [facility] [id number] [place] 00:00:00 00:00:00 584 Method i 2023-01-28 2023-01-28 Outpatient SAHARIA, [facility] [id number] [place] 00:00:00 00:00:00 PEDRO 785 Method i 2022-12-20 2022-12-20 Outpatient SAHARIA, [facility] [id number] [place] 00:00:00 00:00:00 PEDRO 415 Method i 2022-12-20 2022-12-20 Outpatient BAMBI, [facility] [id number] [place] 00:00:00 00:00:00 JONNIK 406 Method i 2022-12-20 2022-12-20 Outpatient BAMBI, [facility] [id number] [place] 00:00:00 00:00:00 RAFIK 416 Method i 2022-12-20 2022-12-20 Outpatient GALATI, [facility] [id number] [place] 00:00:00 00:00:00 CALOS 400 Method i 2022-12-17 2022-12-17 Emergency NUSZEN, [facility] [id number] [place] 00:00:00 00:00:00 ROMERO 152 Method i 2022-11-27 2022-11-27 Outpatient HAWK, [facility] [id number] [place] 00:00:00 00:00:00 DAKSHA 745 Method i 2022-11-22 2022-11-22 Outpatient BAMBI, [facility] [id number] [place] 00:00:00 00:00:00 RAFIK 159 Method i 2022-11-15 2022-11-15 Outpatient RENÉ, [facility] [id number] [place] 00:00:00 00:00:00 COLIN 378 Method i 2022-11-08 2022-11-08 Outpatient SAHARIA, [facility] [id number] [place] 00:00:00 00:00:00 PEDRO 556 Method i 2022-11-08 2022-11-08 Outpatient SAHARIA, [facility] [id number] [place] 00:00:00 00:00:00 PEDRO 153 Method i 2022-11-08 2022-11-08 Outpatient [facility] [id number] [place] 00:00:00 00:00:00 233 Method i 2022-11-07 2022-11-07 Emergency [facility] [id number] Univers 12:40:00 13:55:00 MARTELL tatum [facility] 2022-11-07 2022-11-07 Emergency [facility] 1.2.327.548 [id number] Univers 12:40:00 13:55:00 Martell [facility]K 350.1.13.10 maverick carrera [facility] 4.2.7.2.686 Jerold [facility] [phone] [address] 2022-10-22 2022-10-22 Outpatient BAMBI, [facility] [id number] [place] 00:00:00 00:00:00 RAFIK 146 Method i 2022-10-22 2022-10-22 Outpatient [facility] [id number] [place] 00:00:00 00:00:00 350 Method i 2022-10-18 2022-10-18 Outpatient BAMBI, [facility] [id number] [place] 00:00:00 00:00:00 RAFIK 695 Method i 2022-10-18 2022-10-18 Outpatient [facility] [id number] [place] 00:00:00 00:00:00 509 Method i 2022-10-18 2022-10-18 Outpatient BAMBI, [facility] [id number] [place] 00:00:00 00:00:00 RAFIK 694 Method i 2022-10-15 2022-10-15 Outpatient DEL CID, [facility] [id number] [place] 00:00:00 00:00:00 DAVE 693 Method i 2022-09-27 2022-10-11 Inpatient BAYRON, [facility] [id number] [place] 00:00:00 00:00:00 DARA 859 Method i 2022-10-08 2022-10-08 Inpatient DIVATIA, [facility] [id number] [place] 00:00:00 00:00:00 DARIN 081 Method i 2022-07-16 2022-09-27 Inpatient SAHARIA, [facility] [id number] [place] 00:00:00 00:00:00 PEDRO 884 Method i 2022-07-02 2022-07-02 Outpatient SFA SFA [id number] [place] 14:37:57 14:37:57 [id number] [place] 2022-06-15 2022-06-26 Inpatient TING [facility] [id number] [place] 00:00:00 00:00:00 PIERSON, 407 Method i BAYLEE 2022-03-26 2022-06-15 Inpatient YORK, [facility] [id number] [place] 00:00:00 00:00:00 HERIBERTO 401 Method i 2022-02-17 2022-02-23 Inpatient DINAKAR, [facility] [id number] [place] 00:00:00 00:00:00 PIERCE 147 Method i 2022-02-09 2022-02-09 [facility]patient [facility] [id number] Univers 15:00:00 15:00:00 [facility] 2022-02-09 2022-02-09 Outpatient Christian[facility] [id number] [facility] 15:00:00 15:00:00 [facility] 2022-02-08 2022-02-08 Orders Doctor BETH 1.2.840.114 [id number] [facility] 00:00:00 00:00:00 Only Unassigned, MICHAEL 350.1.13.10 ity of [place] [facility] 4.2.7.2.686 Brent as [phone] [address] 2022-01-30 2022-01-30 Telephone [facility] 1.2.840.114 [id number] Univers 00:00:00 00:00:00 [facility] 350.1.13.10 it y of Ricki [facility] 4.2.7.2.686 Brent as VAMSI?BLEA [phone] Md dicemigdio CARSONEY [address] [facility] 2022-01-23 2022-01-23 [facility] [id number] [facility] 00:00:00 00:00:00 [facility] 2022-01-10 2022-01-10 Outpatient GALATI, [facility] [id number] [address] [place] [address] 00:00:00 00:00:00 CALOS 366 Method i 2022-01-10 2022-01-[address] [facility], [facility] [id number] [address] [place] [address] 00:00:00 00:00:00 CALOS 368 Method i 2021-11-30 2021-11-30 (TEL[facility] [id number] Co mmon 00:00:00 00:00:00 [facility] 2021-11-30 2021-11-30 (TEL) STLMLC STLMLC [id number] Co mmon 00:00:00 00:00:00 [facility] 2021-11-16 2021-11-16 Office [facility] 1.2.715.497 [id number] [facility] 13:30:00 14:32:33 Visit Libby PORRAS 350.1.13.10 i ty [place] [phone] Md chula LACEY [address] 2021-11-16 2021-11-16 Outpatient Christiana LEVY [facility] [id number] Univers 13:30:00 14:32:[address] [facility] 2021-11-16 2021-11-16 Outpatient Christiana LEVY [facility] [id number] Univers 13:30:00 13:30:00 [facility] 2021-11-16 2021-11-16 Outpatient Christiana LEVY [facility] [id number] Univers 13:30:00 13:30:00 [facility] 2021-11-10 2021-11-10 Office [facility] 1.2.840.114 [id number] Univers 16:30:00 16:30:00 Visit Sally PORRAS 350.1.13.10 i ty [facility] 4.2.7.2.686 Kalyani skelton PROFESSIO [phone] Md dical NAL 8 [facility] 2021-11-10 2021-11-10 Outpatient Christian[facility] [id number] Univers 16:30:00 13:58:[facility] 2021-10-27 2021-11-04 Inpatient [facility] [id number] 61 [place] 00:00:00 00:00:00 Ava PIERSON i [facility] [facility] 2021-10-16 2021-10-16 (HOSP F/U) [facility] [id number] Common 00:00:00 00:00:00 Hospital [facility] Follow Up - [facility] 2021-10-13 2021-10-13 (TEL) [facility] [id number] Co mmon 00:00:00 00:00:00 Spirit - [facility] 2021-10-03 2021-10-03 Lebron Hall [facility] [id number] [facility] 00:00:00 00:00:00 Kendy [facility] 2021-10-02 2021-10-02 Outpatient Christiana AGUDELO [facility] [id number] Univers 15:30:00 16:50:13 [facility] 2021-10-02 2021-10-02 Outpatient Christiana AGUDELO [facility] [id number] Univers 15:30:00 15:30:00 [facility] 2021-09-27 2021-09-27 Outpatient [facility] [id number] Univers 13:45:00 15:38:26 LIBBY tatum [facility] 2021-09-27 2021-09-27 Office [facility] 1.2.987.146 [id number] Univers 13:45:00 15:38:26 Visit Libby PORRAS 350.1.13.10 i [place] [phone] Md dical [address] 2021-09-27 2021-09-27 Outpatient [facility] [id number] Univers 13:45:00 15:38:26 LIBBY [facility] 2021-09-27 2021-09-27 Orders Doctor KIRIT 1.2.840.114 [id number] Univers 00:00:00 00:00:00 Only Unassigned, MICHAEL 350.1.13.10 ity of [place] [facility] 4.2.7.2.686 Brent as [phone] [address] 2021-09-25 2021-09-25 OFFICE [facility] [id number] Co mmon 00:00:00 00:00:00 VISIT Gilberto ESTAB PT - CHI LEVEL 4 [facility] 2021-09-01 2021-09-16 Inpatient ER RAFAEL, [facility] Gastro [id number] SLE 22:15:00 12:13:00 KENDY 2021-09-01 2021-09-16 Hospital ER Dawna Anguiano [facility] [id number] [facility] 22:15:00 12:13:00 Encounter Zara Mason [facility] Kendy Hall Laura Alissa 2021-09-04 2021-09-04 (TEL) [facility] [id number] Co mmon 00:00:00 00:00:00 Spirit - [facility] 2021-09-01 2021-09-01 Telephone Cristofer 1.2.840.1 [id number] Methodi 00:00:00 00:00:[address] Matthew 3.430.2.7 Hospit a .3.404876 l .8 2021-09-01 2021-09-01 Documentat Silvio [facility] [id number] [facility] 00:00:00 00:00:00 ion [facility] 2021-08-30 2021-08-31 Emergency [facility] [id number] [place] 00:00:00 00:00:[address] MOISES [address] 2021-08-30 2021-08-30 Travel 1.2.840.1 1.2.072.014 9921 218164 Methodi 00:00:00 00:00:[address] 3.430.2.7 0.2.7.3.698 Ho spita .3.524445 084.8 l .8 2021-08-29 2021-08-29 Outpatient Christiana LEVY, [facility] [id number] [facility] 13:00:00 13:00:00 LIBBY tatum [facility] 2021-08-29 2021-08-29 [facility] [id number] [place] 00:00:00 00:00:[address] CALOS [address] 2021-08-29 2021-08-29 Travel 1.2.840.1 1.2.138.028 6193 221445 Methodi 00:00:00 00:00:[address] 3.430.2.7 0.2.7.3.698 Ho spita .3.083899 084.8 l .8 2021-08-25 2021-08-25 Travel 1.2.840.1 1.2.813.696 5279 015407 Methodi 00:00:00 00:00:[address] 3.430.2.7 0.2.7.3.698 Ho spita .3.561572 084.8 l .8 2021-08-17 2021-08-25 [facility] JENNIFER GHOSH 1.2.840.1 [id number] [place] 00:00:00 00:00:00 Encounter 73783.1.1 [address] .3.043905 .8 2021-08-24 2021-08-24 Surgery Tomy, 1.2.840.1 [id number] 85011 Methodi 09:00:00 10:25:[address] 3.430.2.7 Hospit a .3.552414 l .8 2021-08-24 2021-08-24 Documentat Delcano, 1.2.840.1 [id number] 21 [id number] Methodi 00:00:00 00:00:[place] [address] Matthew 3.430.2.7 Hospit a .3.007223 l .8 2021-08-23 2021-08-23 Documentat Delcano, 1.2.840.1 [id number] 21 [id number] Methodi 00:00:00 00:00:[place] [address] Matthew 3.430.2.7 Hospit a .3.690481 l .8 2021-08-21 2021-08-21 Social Jaimes, 1.2.840.1 [id number] 635 0005718 Methodi 12:37:39 13:37:39 Work Kirit 78983.1.[address] 3.430.2.7 Hospit a .3.707147 l .8 2021-08-21 2021-08-21 Documentat Delcano, 1.2.840.1 [id number] 21 [id number] Methodi 00:00:00 00:00:[place] [address] Matthew 3.430.2.7 Hospit a .3.248138 l .8 2021-08-21 2021-08-21 Telephone Pops, 1.2.840.1 [id number] 2100 [address]7095 Methodi 00:00:00 00:00:[address] 3.430.2.7 Hospit a .3.103875 l .8 2021-08-18 2021-08-18 Travel 1.2.840.1 1.2.892.978 4366 637748 Methodi 00:00:00 00:00:[address] 3.430.2.7 0.2.7.3.698 Ho spita .3.994308 084.8 l .8 2021-08-10 2021-08-11 Emergency [facility], 1.2.840.1 [id number] 2 [id number] Methodi 20:25:00 01:30:[address] Rylee 3.430.2.7 Ho spita .3.667324 l .8 2021-08-10 2021-08-10 Travel 1.2.840.1 1.2.530.812 0943 298180 Methodi 00:00:00 00:00:[address] 3.430.2.7 0.2.7.3.698 Ho spita .3.183499 084.8 l .8 2021-07-28 2021-07-28 (TEL) [facility] STLC [id number] Co mmon 00:00:00 00:00:00 [facility] 2021-07-25 2021-07-25 Telephone Stephanie, 1.2.840.1 [id number] Methodi 00:00:00 00:00:[address] 3.430.2.7 Hospit a .3.904527 l .8 2021-07-24 2021-07-24 Telephone Pops, 1.2.840.1 [id number] 2100 871292 Methodi 00:00:00 00:00:[address] 3.430.2.7 Hospit a .3.211665 l .8 2021-07-12 2021-07-12 (TEL) STLMLC STLMLC 2712201 Co mmon 00:00:00 00:00:00 Spirit - [facility] 2021-06-29 2021-06-29 Travel 1.2.840.1 1.2.416.840 1227 383791 Methodi 00:00:00 00:00:[address] 3.430.2.7 0.2.7.3.698 Ho spita .3.153468 084.8 l .8 2021-06-28 2021-06-28 Emergency NUSZEN, [facility] 064 [id number] 37 [place] 00:00:00 00:00:00 ROMERO [address] 2021-06-22 2021-06-22 Behavioral John, 1.2.840.1 [id number] 851 4396818 Methodi 00:00:00 00:00:00 Health Kaleb 37350.1.[address] Johnny 3.430.2.7 Hospit a .3.048382 l .8 2021-06-18 2021-06-21 [facility], 1.2.840.1 [id number] [place] 00:00:00 00:00:00 Encounter PIERCE 57413.1.1 [address] .3.255784 .8 2021-06-18 2021-06-18 Travel 1.2.840.1 1.2.593.465 6154 550752 Methodi 00:00:00 00:00:[address] 3.430.2.7 0.2.7.3.698 Ho spita .3.577252 084.8 l .8 2021-06-16 2021-06-16 [facility], 1.2.840.5 [id number] Methodi 00:00:00 00:00:00 Only Eusebia E 77470.1.[address] 3.430.2.7 Hospit a .3.508377 l .8 2021-06-08 2021-06-08 Clinical 1.2.840.1 [id number] 16794 66406 Methodi 12:04:06 13:04:[address] 3.430.2.7 Hospit a .3.739384 l .8 2021-06-05 2021-06-05 Telephone John, 1.2.840.1 [id number] 2100 589411 Methodi 00:00:00 00:00:[address] Johnny 3.430.2.7 Hospit a .3.176728 l .8 2021-05-31 2021[facility]-02 [facility] [id number] 214 [id number] [place] 00:00:00 00:00:00 Encounter HERIBERTO 27435.1.1 [address] .3.857873 .8 2021-05-31 2021-05-31 Travel 1.2.840.1 1.2.590.629 2729 709834 Methodi 00:00:00 00:00:[address] 3.430.2.7 0.2.7.3.698 Ho spita .3.995887 084.8 l .8 2021-05-24 2021-05-27 [facility] 012 [id number] 53 [place] 00:00:00 00:00:00 Encounter [facility] [address] 2021-05-24 2021-05-24 Travel 1.2.840.1 1.2.374.161 7336 734540 Methodi 00:00:00 00:00:[address] 3.430.2.7 0.2.7.3.698 Ho spita .3.311589 084.8 l .8 2021-05-23 2021-05-23 (TEL) STLMLC STLMLC [id number] Co mmon 00:00:00 00:00:00 [facility] 2021-05-19 2021-05-19 (TEL) STLMLC STLMLC [id number] Co mmon 00:00:00 00:00:00 [facility] 2021-05-01 2021-05-01 (TEL) STLMLC STLMLC [id number] Co mmon 00:00:00 00:00:00 [facility] 2021-04-26 2021-04-26 (TEL) STLMLC STLMLC [id number] Co mmon 00:00:00 00:00:00 [facility] 2021-04-26 2021-04-26 OFFICE STLMLC STLMLC [id number] Co mmon 00:00:00 00:00:00 VISIT [facility] PT - [facility] LEVEL 4 [facility] 2021-04-26 2021-04-26 SUB ANNUAL STLMLC STLMLC [id number] Common 00:00:00 00:00:00 MCR [facility] WELLNESS - CHI VISIT [facility] 2021-04-21 2021-04-21 (TEL) STLMLC STLMLC [id number] Co mmon 00:00:00 00:00:00 [facility] 2021-01-13 2021-01-13 (TEL) STLMLC STLMLC [id number] Co mmon 00:00:00 00:00:00 [facility] 2020-12-13 2020-12-13 (TEL) STLMLC STLMLC [id number] Co mmon 00:00:00 00:00:00 [facility] 2020-11-28 2020-11-28 Patient [place], 1.2.840.1 [id number] 64956 07374 Methodi 00:00:00 00:00:00 Outreach Bia 85822.1.[address] 3.430.2.7 Hospit a .3.946859 l .8 2020-11-25 2020-11-25 Patient [place], 1.2.840.1 [id number] 71263 13756 Methodi 00:00:00 00:00:00 Outreach Bia 06086.1.[address] 3.430.2.7 Hospit a .3.383086 l .8 2020-11-24 2020-11-24 Patient [place], 1.2.840.1 [id number] 91872 13408 Methodi 00:00:00 00:00:00 Outreach Bia 14026.1.[address] 3.430.2.7 Hospit a .3.452800 l .8 2020-11-22 2020-11-23 Emergency Wild Kovacs 1.2.840. 1 [id number] Methodi 17:29:00 16:26:00 Baylee Girard 39371.1.[address] 3.430.2.7 Hospit a .3.727790 l .8 2020-11-22 2020-11-22 Travel 1.2.840.1 1.2.477.371 9252 312112 Methodi 00:00:00 00:00:[address] 3.430.2.7 0.2.7.3.698 Ho spita .3.113658 084.8 l .8 2020-11-17 2020-11-17 Outpatient STLMLC STLMLC [id number] Common 00:00:00 00:00:00 [facility] 2020-11-02 2020-11-02 [facility] Chu[facility]urel 1.2.840.1 104 769020 [id number] Methodi 16:45:00 23:59:00 Encounter Calos Garcia 21654.1.[address] 3.430.2.7 Hospit a .3.964355 l .8 2020-11-02 2020-11-02 Lab Jose 1.2.840.1 [id number] Methodi 16:00:31 16:05:31 Calos Feng [address]44.1.[address] 3.430.2.7 Hospit a .3.512488 l .8 2020-11-02 2020-11-02 Travel 1.2.840.1 1.2.047.897 2050 879332 Methodi 00:00:00 00:00:[address] 3.430.2.7 0.2.7.3.698 Ho spita .3.781459 084.8 l .8 2020-10-26 2020-10-26 [facility] 1.2.840.1 [id number] 051 [id number] Methodi 12:51:36 23:59:00 Encounter Cliff Marion 39103.1.[address] 3.430.2.7 Hospit a .3.318190 l .8 2020-10-26 2020-10-26 [facility] 1.2.840.1 [id number] 157 [id number] Methodi 08:10:06 12:50:00 Encounter Cliff Marion 24865.1.[address] 3.430.2.7 Hospit a .3.192724 l .8 2020-10-26 2020-10-26 Travel 1.2.840.1 1.2.633.501 0387 [id number] Methodi 00:00:00 00:00:[address] 3.430.2.7 0.2.7.3.698 Ho spita .3.952999 084.8 l .8 2020-10-23 2020-10-24 [facility] 1.2.840.1 104 [id number] Methodi 17:57:00 14:46:00 Encounter Heriberto York 27695.1.[address] Baylee Girard 3.430.2.7 [facility] .3.169909 l .8 2020-10-13 2020-10-13 Travel 1.2.840.1 1.2.582.221 9825 [id number] Methodi 00:00:00 00:00:[address] 3.430.2.7 0.2.7.3.698 Ho spita .3.684073 084.8 l .8 2020-10-12 2020-10-12 Transcribe [place] 31743.2.840.1 [id number] 2 [id number] Methodi 00:00:00 00:00:00 Orders [place] VladLaurel 52325.1.[address] 3.430.2.7 Hospit a .3.579713 l .8 2020-10-11 2020-10-11 Outpatient [facility] STL[facility]C [id number] Common 00:00:00 00:00:00 [facility] 2020-10-09 2020-10-09 Emergency [place], 1.2.840.1 [id number] 2100 [id number] Methodi 16:28:00 19:29:[address] Gus 3.430.2.7 Hospit a .3.545240 l .8 2020-10-03 2020-10-03 Outpatient [facility] STL[facility] [id number] Common 00:00:00 00:00:00 [facility] 2020-09-19 2020-09-21 [facility] 1.2.840.1 [id number] Methodi 16:55:00 14:27:00 Encounter Heriberto York 57458.1.[address] Tat[place] 3.430.2.7 Hos lis .3.592880 l .8 2020-09-15 2020-09-15 Transcribe Jose, 1.2.840.1 [id number] Methodi 00:00:00 00:00:00 Orders Calos Feng 34533.1.[address] 3.430.2.7 Hospit a .3.912365 l .8 2020-09-14 2020-09-14 Outpatient [facility] ST[facility] [id number] Common 00:00:00 00:00:00 [facility] 2020-08-31 2020-09-02 [id number] [address] [place] 00:00:00 00:00:00 [facility] [address] 2020-08-10 2020-08-13 [facility]12 [id number] [place] 00:00:00 00:00:00 HERIBERTO 301 Method i 2020-08-09 2020-08-09 Emergency YING, [facility] 064 [id number] [address] [place] 00:00:00 00:00:00 ROMERO 618 Method i 2020-08-08 2020-08-08 Emergency ELLE, [facility] 064 [id number] 08 [place] 00:00:00 00:00:00 NOBLE 028 Method i 2020-07-27 2020-07-27 Outpatient [facility] STL[facility] [id number] Common 00:00:00 00:00:00 [facility] 2020-07-18 2020-07-18 Outpatient [facility] [id number] 6[address] [place] 00:00:00 00:00:00 996 Method i 2020-07-04 2020-07-07 Inpatient JENNIFER GHOSH [facility] 064 67919 [id number] [place] 00:00:00 00:00:00 529 Method i 2020-06-28 2020-06-28 Outpatient STLMLC STLMLC [id number] Common 00:00:00 00:00:00 [facility] 2020-06-20 2020-06-20 Outpatient STLMLC STLMLC [id number] Common 00:00:00 00:00:00 [facility] 2020-05-30 2020-06-03 Inpatient JENNIFER GHOSH [facility] [id number] [place] 00:00:00 00:00:00 431 Method i 2020-05-27 2020-05-27 Outpatient YALAMANCHIL [facility] [id number] [place] 00:00:00 00:00:00 IAURELIOYIFAN 752 Meth erasto 2020-05-20 2020-05-20 Outpatient STLMLC STLMLC [id number] Common 00:00:00 00:00:00 [facility] 2020-05-13 2020-05-17 Inpatient MCCARTAN, [facility] [id number] [place] 00:00:00 00:00:00 MERCY 422 Method i 2020-04-13 2020-04-21 Inpatient YOJANA, [facility] [id number] 65 [place] 00:00:00 00:00:00 JUNO 459 Method i 2020-04-13 2020-04-13 [facility] [id number] Common 16:02:00 16:02:[address] [facility] 2020-04-13 2020-04-13 [facility] [id number] Common 09:33:00 09:33:[address] [facility] 2020-04-05 2020-04-05 [facility] [id number] Common 09:10:00 09:10:[address] [facility] 2020-04-04 2020-04-04 [facility] [id number] Common 10:58:00 10:58:[address] [facility] 2020-04-04 2020-04-04 [facility] [id number] Common 10:00:00 10:00:[address] [facility] 2020-03-17 2020-03-19 [id number] [place] 00:00:00 00:00:00 DANGELO, Fausto2 Method i [facility] 2020-03-16 2020-03-16 [facility] [id number] Common 11:12:00 11:12:[address] [facility] 2020-03-14 2020-03-14 Outpatient JACQUELIN, [facility] [id number] [place] 00:00:00 00:00:00 AHMED [address] 2020-03-10 2020-03-10 [facility] [id number] Common 13:18:00 13:18:[address] [facility] 2020-03-07 2020-03-07 [facility] [id number] Common 16:07:00 16:07:[address] [facility] 2020-03-04 2020-03-04 [facility] [id number] Common 11:00:00 11:00:[address] [facility] 2020-03-04 2020-03-04 [facility] [id number] Common 11:00:00 11:00:00 t food.de Spir it Drive [facility] 2020-03-04 2020-03-04 Outpatient MEAGAN, [facility] [id number] [place] 00:00:00 00:00:00 JAYASIMHA 578 Meth erasto 2020-02-18 2020-02-21 Inpatient YORK, [facility] [id number] [place] 00:00:00 00:00:00 HERIBERTO 304 Method i 2020-01-18 2020-01-20 Inpatient DINAKAR, [facility] [id number] [place] 00:00:00 00:00:00 PIERCE 881 Method i 2020-01-07 2020-01-11 Inpatient YORK, [facility] [id number] [place] 00:00:00 00:00:00 HERIBERTO 087 Method i 2019-12-29 2019-12-29 [facility] [id number] Common 07:03:00 07:03:[address] [facility] 2019-12-23 2019-12-25 Inpatient TING [facility] [id number] 99 [place] 00:00:00 00:00:00 PIERSON, 540 Method i BAYLEE 2019-12-23 2019-12-23 Outpatient JACQUELIN, [facility] [id number] [place] 00:00:00 00:00:00 AHMED 960 Method i 2019-12-22 2019-12-22 [facility] 1.2.840.114 [id number] [facility] 14:08:03 14:56:41 Visit [facility] [id number] it y of Surgical 4.2.7.2.686 Brent as Specialti [id number] Md dical es [address] [place] 2019-12-22 2019-12-22 [facility] 1.2.840.114 [id number] 14:08:03 14:56:41 Visit [facility] [id number] Surgical 4.2.7.2.686 Specialti [id number] es [address] [place] 2019-12-22 2019-12-22 [facility] [id number] Univers 14:15:00 14:15:00 LITA y [facility] 2019-12-15 2019-12-15 [facility] 1.2.840.114 [id number] Univers 14:57:28 15:12:28 Visit [facility] [id number] it y of Surgical 4.2.7.2.686 Brent as Specialti [phone] Me dical es 198 [facility] 2019-12-15 2019-12-15 Outpatient [facility] [id number] Univers 15:00:00 15:00:00 [facility] 2019-12-08 2019-12-08 [facility] [id number] Univers 15:45:23 16:15:13 Visit [facility] [id number] it y of Surgical 4.2.7.2.686 Brent as Specialti [id number] Md dical es 198 [facility] 2019-12-08 2019-12-08 Outpatient Christian[facility] [id number] Univers 16:00:00 16:00:00 [facility] 2019-12-08 2019-12-08 Outpatient Christian[facility] [id number] Univers 13:45:00 13:45:00 [facility] 2019-10-30 2019-10-30 Outpatient Christian[facility] [id number] Univers 10:15:00 10:15:00 [facility] 2019-10-26 2019-10-26 Orders Doctor KIRIT 1.2.840.114 [id number] Univers 00:00:00 00:00:00 Only Unassigned, MICHAEL 350.1.13.10 ity of [facility] 4.2.7.2.686 Brent as [id number] [address] 2019-10-22 2019-10-22 Outpatient Christian[facility] [id number] Univers 16:15:00 16:15:00 [facility]-10-22 2019-10-22 [facility] 1.2.840.114 [id number] Univers 10:06:57 10:56:32 Visit [facility] [id number] it y of Surgical 4.2.7.2.686 Brent as Specialti [id number] Me dical es [address] [facility] 2019-10-22 2019-10-22 Outpatient Christian[facility] [id number] Univers 10:15:00 10:15:00 [facility] 2019-10-12 2019-10-15 [facility] [id number] [place] 00:00:00 00:00:00 HERIBERTO 906 Method i 2019-09-24 2019-09-24 [facility] 1.2.840.114 [id number] Univers 11:21:26 11:41:20 Visit [facility] [id number] it y of Surgical 4.2.7.2.686 Brent as Specialti [phone] Me dical es 198 [facility] 2019-09-24 2019-09-24 Outpatient Christian[facility] [id number] Univers 11:15:00 11:41:20 [facility] 2019-09-01 2019-09-03 Inpatient CHELA [facility] [id number] [place] 00:00:00 00:00:00 HERIBERTO 637 Method i 2019-07-20 2019-07-20 [facility] [id number] Common 14:02:00 14:02:[address] [facility] 2019-07-16 2019-07-16 [facility] [id number] Common 13:15:00 13:15:[address] [facility] 2019-06-16 2019-06-18 Inpatient CHELA [facility] [id number] [place] 00:00:00 00:00:00 HERIBERTO 382 Method i 2019-05-07 2019-05-08 Outpatient YOVANY TAVERAS [facility] [id number] [place] 00:00:00 00:00:00 691 Method i 2019-04-23 2019-04-23 Outpatient JOSE, [facility] [id number] 307 [place] 00:00:00 00:00:00 CALOS 08Lynnette Method i 2019-04-23 2019-04-23 Outpatient JACQUELIN, [facility] [id number] [place] 00:00:00 00:00:00 EBONY Knapp Method i 2019-04-15 2019-04-15 [facility] [id number] Common 14:19:00 14:19:[address] [facility] 2019-04-09 2019-04-09 [facility] [id number] Common 14:00:00 14:00:[address] [facility] 2019-03-10 2019-03-10 Transition Ashly Makorin 1.2.840.114 [id number] Univers 00:00:00 00:00:00 of Care Anabell Almaguer [id number] it y of [place] 4.2.7.2.686 [facility] [id number] [facility] [address] 2019-03-06 2019-03-09 [facility] E 1.2.840. 114 [id number] [facility] 00:42:03 16:11:00 Encounter Indra Motta 350.1.13.1 0 ity of [facility] 4.2.7.2.686 [place] [id number] [facility] [address] 2019-01-21 2019-01-21 Emergency X SANCHEZ [facility] ERT [id number] Univers 19:21:56 22:21:[address] [facility] 2018-09-09 2018-09-09 [facility] [id number] Common 14:45:00 14:45:[address] [facility] 2018-04-15 2018-04-15 [facility] [id number] Common 12:02:00 12:02:[address] [facility] 2018-02-19 2018-02-19 [facility] [id number] Common 15:08:00 15:08:[address] Drive [facility] 2018-01-24 2018-01-24 Outpatient Irma Solist [id number] Common 11:15:00 11:15:[address] [facility] Results Test Description Test Time Test Comments Results Result Comments Source Influenza virus A and B and 2023-01-28 18:44:34 Test Item Value Reference Range Interpretation Comme nts SARS-CoV-2 (COVID-19) RNA [Presence] in Respiratory specimen by Not detected GUSTAVO with probe detection (test code = 65130-6) Whether patient resides in a congregate care setting (test code = N o 75711-4) Date and time of symptom onset (test code = 64848-5) Unknown Whether the patient was hospitalized for condition of interest No (test code = 83472-3) Whether the patient was admitted to intensive care unit (ICU) for N o condition of interest (test code = 43534-8) 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 (test code = No 34597-4) Whether the patient has symptoms related to condition of interest N o (test code = 61926-2) status (test code = 91601-5) No PHI MICHAELSARS-CoV-2 (COVID-19) RNA [Presence] in Respiratory specimen by GUSTAVO with probe [id number] 19:26:29 Test Item Value Reference Range Interpretation Comments SARS-CoV-2 (COVID-19) RNA Not detected [Presence] in Respiratory specimen by GUSTAVO with probe detection (test code = 80880-1) 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 employed in a Unknown healthcare setting (test code = 61970-5) Whether the patient has symptoms Unknown related to condition of interest (test code = 82103-2) Whether the patient was Unknown hospitalized for condition of interest (test code = 48037-6) Whether the patient was admitted Unknown to intensive care unit (ICU) for condition of interest (test code = 26547-2) Whether patient resides in a Unknown congregate care setting (test code = 46661-0) status (test code = Unknown 13085-9) Date and time of symptom onset Unknown (test code = 88759-6) PHI MICHAELSARS-CoV-2 (COVID-19) RNA [Presence] in Respiratory specimen by GUSTAVO with probe [id number] 18:27:11 Test Item Value Reference Range Interpretation Comments SARS-CoV-2 (COVID-19) RNA Not detected [Presence] in Respiratory specimen by GUSTAVO with probe detection (test code = 34992-3) 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 employed in a Unknown healthcare setting (test code = 46030-7) Whether the patient has symptoms Unknown related to condition of interest (test code = 49704-9) Whether the patient was Unknown hospitalized for condition of interest (test code = 24630-5) Whether the patient was admitted Unknown to intensive care unit (ICU) for condition of interest (test code = 56908-0) Whether patient resides in a Unknown congregate care setting (test code = 82976-4) status (test code = Unknown 04320-9) Date and time of symptom onset Unknown (test code = 24085-3) PHI MICHAELSARS-CoV-2 (COVID-19) RNA [Presence] in Respiratory specimen by GUSTAVO with probe [id number] 02:07:43 Test Item Value Reference Range Interpretation Comments SARS-CoV-2 (COVID-19) RNA Not detected [Presence] in Respiratory specimen by GUSTAVO with probe detection (test code = 10776-7) 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 employed in a Unknown healthcare setting (test code = 64364-9) Whether the patient has symptoms Unknown related to condition of interest (test code = 40795-8) Whether the patient was Unknown hospitalized for condition of interest (test code = 42804-2) Whether the patient was admitted Unknown to intensive care unit (ICU) for condition of interest (test code = 50549-3) Whether patient resides in a Unknown congregate care setting (test code = 23824-9) status (test code = Unknown 30815-8) Date and time of symptom onset Unknown (test code = 12171-7) PHI MICHAELSARS-CoV-2 (COVID-19) RNA [Presence] in Respiratory specimen by GUSTAVO with probe [id number] 21:37:35 Test Item Value Reference Range Interpretation Comments SARS-CoV-2 (COVID-19) RNA Not detected [Presence] in Respiratory specimen by GUSTAVO with probe detection (test code = 68527-4) 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 employed in a Unknown healthcare setting (test code = 34466-3) Whether the patient has symptoms Unknown related to condition of interest (test code = 26049-1) Whether the patient was Unknown hospitalized for condition of interest (test code = 03253-1) Whether the patient was admitted Unknown to intensive care unit (ICU) for condition of interest (test code = 26001-3) Whether patient resides in a Unknown congregate care setting (test code = 52520-1) status (test code = Unknown 31555-6) Date and time of symptom onset Unknown (test code = 45420-0) PHI LATTER-DAY HGRTGHYY-AbS-2 (COVID-19) RNA [Presence] in Respiratory specimen by GUSTAVO with probe [id number] 05:52:15 Test Item Value Reference Range Interpretation Comments SARS-CoV-2 (COVID-19) RNA Not detected [Presence] in Respiratory specimen by GUSTAVO with probe detection (test code = 68713-2) 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 employed in a Unknown healthcare setting (test code = 97413-6) Whether the patient has symptoms Unknown related to condition of interest (test code = 86795-6) Whether the patient was Unknown hospitalized for condition of interest (test code = 63306-0) Whether the patient was admitted Unknown to intensive care unit (ICU) for condition of interest (test code = 09034-9) Whether patient resides in a Unknown congregate care setting (test code = 23805-0) status (test code = Unknown 00143-1) Date and time of symptom onset Unknown (test code = 17688-3) PHI MICHAELSARS-CoV-2 (COVID-19) RNA [Presence] in Respiratory specimen by GUSTAVO with probe [id number] 05:19:43 Test Item Value Reference Range Interpretation Comments SARS-CoV-2 (COVID-19) RNA Not detected [Presence] in Respiratory specimen by GUSTAVO with probe detection (test code = 27499-8) 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 employed in a Unknown healthcare setting (test code = 95926-9) Whether the patient has symptoms Unknown related to condition of interest (test code = 29897-7) Whether the patient was Unknown hospitalized for condition of interest (test code = 20803-6) Whether the patient was admitted Unknown to intensive care unit (ICU) for condition of interest (test code = 08790-5) Whether patient resides in a Unknown congregate care setting (test code = 82197-8) status (test code = Unknown 95127-1) Date and time of symptom onset Unknown (test code = 69729-4) PHI CORLEY LWFJBGVI-WvS-5 (COVID-19) RNA [Presence] in Respiratory specimen by GUSTAVO with probe [id number] 00:24:44 Test Item Value Reference Range Interpretation Comments SARS-CoV-2 (COVID-19) RNA Not detected [Presence] in Respiratory specimen by GUSTAVO with probe detection (test code = 14925-3) 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 employed in a Unknown healthcare setting (test code = 28873-9) Whether the patient has symptoms Unknown related to condition of interest (test code = 82003-2) Whether the patient was Unknown hospitalized for condition of interest (test code = 91463-5) Whether the patient was admitted Unknown to intensive care unit (ICU) for condition of interest (test code = 50676-5) Whether patient resides in a Unknown congregate care setting (test code = 52862-2) status (test code = Unknown 68566-2) Date and time of symptom onset Unknown (test code = 03345-6) PHI MICHAELSARS-CoV-2 (COVID-19) RNA [Presence] in Respiratory specimen by GUSTAVO with probe [id number] 07:50:50 Test Item Value Reference Range Interpretation Comments SARS-CoV-2 (COVID-19) RNA Not detected [Presence] in Respiratory specimen by GUSTAVO with probe detection (test code = 14191-1) 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 employed in a Unknown healthcare setting (test code = 12697-5) Whether the patient has symptoms Unknown related to condition of interest (test code = 29419-1) Whether the patient was Unknown hospitalized for condition of interest (test code = 21972-2) Whether the patient was admitted Unknown to intensive care unit (ICU) for condition of interest (test code = 18415-9) Whether patient resides in a Unknown congregate care setting (test code = 66553-6) status (test code = Unknown 12444-7) Date and time of symptom onset Unknown (test code = 90964-8) PHI MICHAELSARS-CoV-2 (COVID-19) RNA [Presence] in Respiratory specimen by GUSTAVO with probe [id number] 19:18:03 Test Item Value Reference Range Interpretation Comments SARS-CoV-2 (COVID-19) RNA Not detected [Presence] in Respiratory specimen by GUSTAVO with probe detection (test code = 90334-6) 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 employed in a No healthcare setting (test code = 09646-5) Whether the patient has symptoms Yes related to condition of interest (test code = 96467-0) Whether the patient was No hospitalized for condition of interest (test code = 75562-0) Whether the patient was admitted No to intensive care unit (ICU) for condition of interest (test code = 66513-3) Whether patient resides in a No congregate care setting (test code = 43417-7) status (test code = No 54960-6) Date and time of symptom onset Unknown (test code = 17743-6) PHI MICHAELSARS-CoV-2 (COVID-19) RNA [Presence] in Respiratory specimen by GUSTAVO with probe ixtdzcifo9622-28-67 11:44:34 Test Item Value Reference Range Interpretation Comments SARS-CoV-2 (COVID-19) RNA Not detected [Presence] in Respiratory specimen by GUSTAVO with probe detection (test code = 12858-1) 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 employed in a Unknown healthcare setting (test code = 82505-9) Whether the patient has symptoms Unknown related to condition of interest (test code = 13806-8) Whether the patient was Unknown hospitalized for condition of interest (test code = 84092-7) Whether the patient was admitted Unknown to intensive care unit (ICU) for condition of interest (test code = 79428-4) Whether patient resides in a Unknown congregate care setting (test code = 59387-4) status (test code = Unknown 51918-7) Date and time of symptom onset Unknown (test code = 79211-5) PHI MICHAELSARS-CoV-2 (COVID-19) RNA [Presence] in Respiratory specimen by GUSTAVO with probe [id number] 05:03:29 Test Item Value Reference Range Interpretation Comments SARS-CoV-2 (COVID-19) RNA Not detected [Presence] in Respiratory specimen by GUSTAVO with probe detection (test code = 14807-8) 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 employed in a Unknown healthcare setting (test code = 13987-7) Whether the patient has symptoms Unknown related to condition of interest (test code = 21043-5) Whether the patient was Unknown hospitalized for condition of interest (test code = 61945-5) Whether the patient was admitted Unknown to intensive care unit (ICU) for condition of interest (test code = 83388-4) Whether patient resides in a Unknown congregate care setting (test code = 43497-4) status (test code = Unknown 20940-3) Date and time of symptom onset Unknown (test code = 21467-8) PHI MICHAELSARS-CoV-2 (COVID-19) RNA [Presence] in Respiratory specimen by GUSTAVO with probe [id number] 16:50:47 Test Item Value Reference Range Interpretation Comments SARS-CoV-2 (COVID-19) RNA Not detected [Presence] in Respiratory specimen by GUSTAVO with probe detection (test code = 63800-9) 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 employed in a Unknown healthcare setting (test code = 43343-6) Whether the patient has symptoms Unknown related to condition of interest (test code = 63305-5) Whether the patient was Unknown hospitalized for condition of interest (test code = 35088-1) Whether the patient was admitted Unknown to intensive care unit (ICU) for condition of interest (test code = 09619-6) Whether patient resides in a Unknown congregate care setting (test code = 84907-4) status (test code = Unknown 23118-4) Date and time of symptom onset Unknown (test code = 12094-6) PHI Rivaspatitis B surface [id number] 23:01:06 Test Item Value Reference Range Interpretation Comments Hepatitis B surface Nonreactive Nonreactive antigen (test code = 5195-3) REJI (test code = REJI) Specimen is considered negative for HBsAg. Lab Interpretation (test Normal code = 49869-8) [facility] [id number] 23:01:06 Test Item Value Reference Range Interpretation Comments Hep B C IgM (test code = Nonreactive Nonreactive 38585-5) REJI (test code = REJI) [place] ID - ADMIN Lab Interpretation (test Normal code = 87460-4) [facility] antibody, [id number] 23:01:06 Test Item Value Reference Range Interpretation Comments Hep A IgM (test code = Nonreactive Nonreactive 18099-7) REJI (test code = REJI) [place] ID - ADMIN Lab Interpretation (test Normal code = 16584-3) [facility] [id number] 23:01:06 Test Item Value Reference Range Interpretation Comments Hepatitis C Ab (test code Nonreactive Nonreactive = 77447-8) REJI (test code = REJI) [place] ID - ADMIN Lab Interpretation (test Normal code = 64487-1) [facility] surface [id number] 23:01:06 Test Item Value Reference Range Interpretation Comments Hepatitis B surface Nonreactive Nonreactive antigen (test code = 5195-3) REJI (test code = REJI) Specimen is considered negative for HBsAg. Lab Interpretation (test Normal code = 28555-6) [facility] B core antibody, [id number] 23:01:06 Test Item Value Reference Range Interpretation Comments Hep B C IgM (test code = Nonreactive Nonreactive 46313-9) REJI (test code = REJI) [place] ID - ADMIN Lab Interpretation (test Normal code = 36579-4) [facility] antibody, [id number] 23:01:06 Test Item Value Reference Range Interpretation Comments Hep A IgM (test code = Nonreactive Nonreactive 74121-5) REJI (test code = REJI) [place] ID - ADMIN Lab Interpretation (test Normal code = 39517-0) [facility] [id number] 23:01:06 Test Item Value Reference Range Interpretation Comments Hepatitis C Ab (test code Nonreactive Nonreactive = 06927-6) REJI (test code = REJI) [place] - ADMIN Lab Interpretation (test Normal code = 75883-0) [facility] surface [id number] 23:01:06 Test Item Value Reference Range Interpretation Comments Hepatitis B surface Nonreactive Nonreactive antigen (test code = 5195-3) REJI (test code = REJI) Specimen is considered negative for HBsAg. Lab Interpretation (test Normal code = 52261-9) [facility] B core antibody, [id number] 23:01:06 Test Item Value Reference Range Interpretation Comments Hep B C IgM (test code = Nonreactive Nonreactive 82941-8) REJI (test code = REJI) [place] ID - ADMIN Lab Interpretation (test Normal code = 48547-9) [facility] A antibody, [id number] 23:01:06 Test Item Value Reference Range Interpretation Comments Hep A IgM (test code = Nonreactive Nonreactive 23257-1) REJI (test code = REJI) [place] - ADMIN Lab Interpretation (test Normal code = 22089-1) [facility] [id number] 23:01:06 Test Item Value Reference Range Interpretation Comments Hepatitis C Ab (test code Nonreactive Nonreactive = 26433-9) REJI (test code = REJI) [place] ID - ADMIN Lab Interpretation (test Normal code = 58478-9) [facility] B surface [id number] 23:01:06 Test Item Value Reference Range Interpretation Comments Hepatitis B surface Nonreactive Nonreactive antigen (test code = 5195-3) REJI (test code = REJI) Specimen is considered negative for HBsAg. Lab Interpretation (test Normal code = 17172-3) [facility] B core antibody, [id number] 23:01:06 Test Item Value Reference Range Interpretation Comments Hep B C IgM (test code = Nonreactive Nonreactive 57003-1) REJI (test code = REJI) [place] ID - ADMIN Lab Interpretation (test Normal code = 50076-0) [facility] [id number] 23:01:06 Test Item Value Reference Range Interpretation Comments Hep A IgM (test code = Nonreactive Nonreactive 41183-9) REJI (test code = REJI) [place] ID - ADMIN Lab Interpretation (test Normal code = 55705-7) [facility] [id number] 23:01:06 Test Item Value Reference Range Interpretation Comments Hepatitis C Ab (test code Nonreactive Nonreactive = 91116-7) REJI (test code = REJI) [place] ID - ADMIN Lab Interpretation (test Normal code = 44437-0) [facility] [id number] 23:01:06 Test Item Value Reference Range Interpretation Comments Hepatitis B surface Nonreactive Nonreactive antigen (test code = 5195-3) REJI (test code = REJI) Specimen is considered negative for HBsAg. Lab Interpretation (test Normal code = 73276-7) [facility] B core antibody, [id number] 23:01:06 Test Item Value Reference Range Interpretation Comments Hep B C IgM (test code = Nonreactive Nonreactive 90033-4) REJI (test code = REJI) [place] ID - ADMIN Lab Interpretation (test Normal code = 69223-6) [facility] A antibody, [id number] 23:01:06 Test Item Value Reference Range Interpretation Comments Hep A IgM (test code = Nonreactive Nonreactive 99570-2) REJI (test code = REJI) [place] ID - ADMIN Lab Interpretation (test Normal code = 02918-3) [facility] C [id number] 23:01:06 Test Item Value Reference Range Interpretation Comments Hepatitis C Ab (test code Nonreactive Nonreactive = 23595-0) REJI (test code = REJI) [place] ID - ADMIN Lab Interpretation (test Normal code = 15308-1) [facility] [id number] 23:01:06 Test Item Value Reference Range Interpretation Comments HEPATITIS B SURFACE ANTIGEN (2) Nonreactive Nonreactive (BEAKER) (test code = 2585) Specimen is considered negative for HBsAg.HEPATITIS B CORE ANTIBODY, IGM 2022-01-23 23:01:06 Test Item Value Reference Range Interpretation Comments HEPATITIS B CORE IGM ANTIBODY Nonreactive Nonreactive (BEAKER) (test code = 645) [place] ID - ADMINHEPATITIS C [id number] 23:01:06 Test Item Value Reference Range Interpretation Comments HEPATITIS C ANTIBODY (BEAKER) Nonreactive Nonreactive (test code = 367) [place] ID - ADMINHEPATITIS A ANTIBODY, [id number] 23:01:06 Test Item Value Reference Range Interpretation Comments HEPATITIS A IGM ANTIBODY (BEAKER) Nonreactive Nonreactive (test code = 498) [place] ID - THRKISJPW-NlG-3 (COVID-19) RNA [Presence] in Respiratory specimen by GUSTAVO with probe [id number] 04:55:57 Test Item Value Reference Range Interpretation Comments SARS-CoV-2 (COVID-19) RNA Not detected [Presence] in Respiratory specimen by GUSTAVO with probe detection (test code = 59698-6) 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 employed in a Unknown healthcare setting (test code = 96060-3) Whether the patient has symptoms Unknown related to condition of interest (test code = 52541-0) Whether the patient was Unknown hospitalized for condition of interest (test code = 94227-5) Whether the patient was admitted Unknown to intensive care unit (ICU) for condition of interest (test code = 74879-7) Whether patient resides in a Unknown congregate care setting (test code = 68285-7) status (test code = Unknown 41657-5) Date and time of symptom onset Unknown (test code = 80571-5) PHI SUTTON-CoV-2 (COVID-19) RNA [Presence] in Respiratory specimen by GUSTAVO with probe [id number] 01:48:29 Test Item Value Reference Range Interpretation Comments SARS-CoV-2 (COVID-19) RNA Not detected [Presence] in Respiratory specimen by GUSTAVO with probe detection (test code = 19186-2) 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 employed in a Unknown healthcare setting (test code = 51920-6) Whether the patient has symptoms Unknown related to condition of interest (test code = 02698-2) Whether the patient was Unknown hospitalized for condition of interest (test code = 07969-6) Whether the patient was admitted Unknown to intensive care unit (ICU) for condition of interest (test code = 52320-6) Whether patient resides in a Unknown congregate care setting (test code = 58544-6) status (test code = Unknown 13143-0) Date and time of symptom onset Unknown (test code = 51394-0) PHI MICHAELCT, [id number] 08:50:00Unlisted Reason for Exam - Click Yes and Enter Reason Below->YesUnlisted Reason for Exam->diarrhea. abdominal pain. C dif colitis.Is this for enterography?->NoWill this procedure require oral contrast?->No [facility] : 1960 Sex: FFINAL REPORT [...] Small right pleural effusion. Signed: Quentin Sims [facility] Verified Date/Time: 09/15/2021 08:50:57 Basic Metabolic [id number] 07:34:36 Test Item Value Reference Range Interpretation Comments Sodium (test code = 138 meq/L 264-320 8399-2) Potassium (test code 3.7 meq/L 3.5-5.1 Specime [...] (test code = 7.5 mg/dL 8.4-10.2 L 50227-3) EGFR (test code = 83 mL/min/1.73 [place] [address]-0) NOT ACCURATE CREATININE CLEARANCE IN PREDICTING GLOMERULAR FILTRATION RATE . ESTIMATED GFR I S NOT APPLICABLE FOR DIALYSIS PATIENTS. REJI (test code = REJI) [place] ID - EOSpecimen moderately icteric Lab Interpretation Abnormal (test code = 39855-0) [facility] Metabolic [id number] 07:34:36 Test Item Value Reference Range Interpretation Comments Sodium (test code = 138 meq/L 650-906 3285-2) Potassium (test code 3.7 meq/L 3.5-5.1 Specime [...] (test code = 7.5 mg/dL 8.4-10.2 L 96295-1) EGFR (test code = 83 mL/min/1.73 [place] [address]-9) NOT ACCURATE CREATININE CLEARANCE IN PREDICTING GLOMERULAR FILTRATION RATE . ESTIMATED GFR I S NOT APPLICABLE FOR DIALYSIS PATIENTS. REJI (test code = REJI) [place] ID - EOSpecimen moderately icteric Lab Interpretation Abnormal (test code = 23704-5) [facility] Metabolic [id number] 07:34:36 Test Item Value Reference Range Interpretation Comments Sodium (test code = 138 meq/L 028-699 3280-2) Potassium (test code 3.7 meq/L 3.5-5.1 Specime [...] (test code = 7.5 mg/dL 8.4-10.2 L 07096-3) EGFR (test code = 83 mL/min/1.73 sq [place] [address]-0) NOT ACCURATE CREATININE CLEARANCE IN PREDICTING GLOMERULAR FILTRATION RATE . ESTIMATED GFR I S NOT APPLICABLE FOR DIALYSIS PATIENTS. REJI (test code = REJI) [place] ID - EOSpecimen moderately icteric Lab Interpretation Abnormal (test code = 70076-4) [facility] METABOLIC [id number] 07:34:36 Test Item Value Reference Range Interpretation [...] NOT APPLICABLE FOR DIALYSIS PATIEN TS. Manager [place] ID - EOSpecimen moderately ictericHepatic function [id number] 07:29:08 Test Item Value Reference Range Interpretation Comments Protein, Total (test 5.2 See_Comment L Specime n slightly code = 2885-2) hemolyzed [Automated message] The system which generated this result transmitted reference range : 6.0 - 8.3 gm/dL . The reference range was not used to interpr et this result as normal/abnormal . Albumin (test code = 2.1 g/dL 3.5-5.0 L Specime n slightly 34663-6) hemolyzed Total Bilirubin (test 3.9 mg/dL 0.2-1.2 [...] hemolyzed REJI (test code = REJI) [place] ID - EOSpecimen moderately icteric Lab Interpretation Abnormal (test code = 82175-6) [facility] [id number] 07:29:08 Test Item Value Reference Range Interpretation Comments Protein, Total (test 5.2 See_Comment L Specime n slightly code = 2885-2) hemolyzed [Automated message] The system which generated this result transmitted reference range : 6.0 - 8.3 gm/dL . The reference range was not used to interpr et this result as normal/abnormal . Albumin (test code = 2.1 g/dL 3.5-5.0 L Specime n slightly 53291-4) hemolyzed Total Bilirubin (test 3.9 mg/dL 0.2-1.2 [...] hemolyzed REJI (test code = REJI) [place] ID - EOSpecimen moderately icteric Lab Interpretation Abnormal (test code = 12565-5) [facility] [id number] 07:29:08 Test Item Value Reference Range Interpretation Comments Protein, Total (test 5.2 See_Comment L Specime n slightly code = 2885-2) hemolyzed [Automated message] The system which generated this result transmitted reference range : 6.0 - 8.3 gm/dL . The reference range was not used to interpr et this result as normal/abnormal . Albumin (test code = 2.1 g/dL 3.5-5.0 L Specime n slightly 94634-5) hemolyzed Total Bilirubin (test 3.9 mg/dL 0.2-1.2 H Specim en slightly code = 1974-09) hemolyzed Bilirubin, Direct 1.5 mg/dL 0.1-0.5 H Specimen s lightly (test code = 1968-02) hemolyz ed Alkaline Phosphatase 95 U/L 40-150 (test code = 6768-6) AST (test code = 37 U/L 5-34 H Specimen sl ightly 1920-8) hemolyzed ALT (test code = 18 U/L 6-55 Specimen sl ightly 1742-6) hemolyzed REJI (test code = REJI) [place] ID - EOSpecimen moderately icteric Lab Interpretation Abnormal (test code = 44253-6) [facility] [id number] 07:29:08 Test Item Value Reference Range Interpretation [...] slightly (test code = 347) hemolyzed [place] ID - EOSpecimen moderately ictericProthrombin time/[id number] 06:46:58 Test Item Value Reference Interpretation Comments Range Protime (test code = 22.1 See_Comment H [Autom ated 5902-2) message] The system which generated this result transmitted reference range : 11.9 - 14.2 seconds. The reference range was not used to interpret this result as normal/abnormal . INR (test code = 1.96 See_Comment [Automated [employer]1-6) message] The system which generated this result [...] valves. Lab Interpretation Abnormal (test code = 14144-3) [facility] HospitalProthrombin time/[id number] 06:46:58 Test Item Value Reference Interpretation Comments [...] valves. Lab Interpretation Abnormal (test code = 17901-5) [facility] HospitalProthrombin time/[id number] 06:46:58 Test Item Value Reference Interpretation Comments Range Protime (test code = 22.1 See_Comment H [Autom ated 5902-2) message] The system which generated this result transmitted reference range : 11.9 - 14.2 seconds. The reference range was not used to interpret this result as normal/abnormal . INR (test code = 1.96 See_Comment [Automated 3761-6) message] The system which generated this result [...] valves. Lab Interpretation Abnormal (test code = 79901-2) [facility] HospitalPROTHROMBIN TIME/[id number] 06:46:58 Test Item Value Reference Range Interpretation Comments PROTIME (BEAKER) 22.1 seconds 11.9-14.2 H (test code = 759) INR (BEAKER) (test 1.96 See_Comment [Automat ed message] code = 370) The system [employer] generated this result transmitted ref erence range: <=5.90. The reference range was not used to int erpret this result as normal/abnormal . RECOMMENDED COUMADIN/WARFARIN INR THERAPY RANGESSTANDARD DOSE: 2.0 - 3.0 Includes: PROPHYLAXIS for venous thrombosis, systemic embolization; TREATMENT for venous thrombosis and/or pulmonary embolus.HIGH RISK: Target INR is 2.5-3.5 for patients with mechanical heart valves.CBC with platelet count + automated [id number] 06:38:55 Test Item Value Reference Range Interpretation Comments WBC (test code = 6690-2) 7.9 See_Comment [A utomated message] The system [employer] generated this result transmitted ref erence range: 3.5 - 10 .5 K/L. The refe rence range was not u sed to interpret this result as normal/abnor mal. RBC (test code = 789-8) 2.53 See_Comment L [Au tomated message] The system [employer] generated this result transmitted ref erence range: 3.93 - 5 .22 M/L. The refe rence range was not u sed to interpret this result as normal/abnor mal. MCHC (test code = 786-4) 30.8 See_Comment L [A utomated message] The system [employer] generated this result transmitted ref erence range: [...] L [Aut omated message] 777-3) The system [employer] generated this result transmitted ref erence range: 150 - 45 0 K/CU MM. The referen ce range was not u sed to interpret this result as normal/abnor mal. MPV (test code = 10.6 fL 9.4-12.3 22720-4) nRBC (test code = 413) 0 See_Comment [Aut omated message] The system [employer] generated this result transmitted ref erence range: [...] See_Comment [Aut omated message] 670) The system [employer] generated this result transmitted ref erence range: 1.56 - 6 .13 K/L. The refe rence range was not u sed to interpret this result as normal/abnor mal. # Lymphs (test code = 0.99 See_Comment L [Auto mated message] 414) The system [employer] generated this result transmitted ref erence range: 1.18 - 3 .74 K/L. The refe rence range was not u sed to interpret this result as normal/abnor mal. # Monos (test code = 0.83 See_Comment H [Autom ated message] 415) The system [employer] generated this result transmitted ref erence range: 0.24 - 0 .36 K/L. The refe rence range was not u sed to interpret this result as normal/abnor mal. # Eos (test code = 416) 0.33 See_Comment [Au tomated message] The system [employer] generated this result transmitted ref erence range: 0.04 - 0 .36 K/L. The refe rence range was not u sed to interpret this result as normal/abnor mal. # Baso (test code = 417) 0.04 See_Comment [A utomated message] The system [employer] generated this result transmitted ref erence range: 0.01 - 0 .08 K/L. The refe rence range was not u sed to interpret this result as normal/abnor mal. Immature 1 % 0-1 Granulocytes-Relative (test code = 2801) Lab Interpretation (test Abnormal code = 86516-6) [facility] with platelet count + automated [id number] 06:38:55 Test Item Value Reference Range Interpretation Comments WBC (test code = 6690-2) 7.9 See_Comment [A utomated message] The system [employer] generated this result transmitted ref erence range: 3.5 - 10 .5 K/L. The refe rence range was not u sed to interpret this result as normal/abnor mal. RBC (test code = 789-8) 2.53 See_Comment L [Au tomated message] The system [employer] generated this result transmitted ref erence range: 3.93 - 5 .22 M/L. The refe rence range was not u sed to interpret this result as normal/abnor mal. MCHC (test code = 786-4) 30.8 See_Comment L [A utomated message] The system [employer] generated this result transmitted ref erence range: [...] L [Aut omated message] 777-3) The system [employer] generated this result transmitted ref erence range: 150 - 45 0 K/CU MM. The referen ce range was not u sed to interpret this result as normal/abnor mal. MPV (test code = 10.6 fL 9.4-12.3 55522-2) nRBC (test code = 413) 0 See_Comment [Aut omated message] The system [employer] generated this result transmitted ref erence range: [...] See_Comment [Aut omated message] 670) The system [employer] generated this result transmitted ref erence range: 1.56 - 6 .13 K/L. The refe rence range was not u sed to interpret this result as normal/abnor mal. # Lymphs (test code = 0.99 See_Comment L [Auto mated message] 414) The system [employer] generated this result transmitted ref erence range: 1.18 - 3 .74 K/L. The refe rence range was not u sed to interpret this result as normal/abnor mal. # Monos (test code = 0.83 See_Comment H [Autom ated message] 415) The system [employer] generated this result transmitted ref erence range: 0.24 - 0 .36 K/L. The refe rence range was not u sed to interpret this result as normal/abnor mal. # Eos (test code = 416) 0.33 See_Comment [Au tomated message] The system [employer] generated this result transmitted ref erence range: 0.04 - 0 .36 K/L. The refe rence range was not u sed to interpret this result as normal/abnor mal. # Baso (test code = 417) 0.04 See_Comment [A utomated message] The system [employer] generated this result transmitted ref erence range: 0.01 - 0 .08 K/L. The refe rence range was not u sed to interpret this result as normal/abnor mal. Immature 1 % 0-1 Granulocytes-Relative (test code = 2801) Lab Interpretation (test Abnormal code = 83887-2) [facility] with platelet count + automated [id number] 06:38:55 Test Item Value Reference Range Interpretation Comments WBC (test code = 6690-2) 7.9 See_Comment [A utomated message] The system [employer] generated this result transmitted ref erence range: 3.5 - 10 .5 K/L. The refe rence range was not u sed to interpret this result as normal/abnor mal. RBC (test code = 789-8) 2.53 See_Comment L [Au tomated message] The system [employer] generated this result transmitted ref erence range: 3.93 - 5 .22 M/L. The refe rence range was not u sed to interpret this result as normal/abnor mal. MCHC (test code = 786-4) 30.8 See_Comment L [A utomated message] The system [employer] generated this result transmitted ref erence range: [...] L [Aut omated message] 777-3) The system [employer] generated this result transmitted ref erence range: 150 - 45 0 K/CU MM. The referen ce range was not u sed to interpret this result as normal/abnor mal. MPV (test code = 10.6 fL 9.4-12.3 04801-7) nRBC (test code = 413) 0 See_Comment [Aut omated message] The system [employer] generated this result transmitted ref erence range: [...] See_Comment [Aut omated message] 670) The system [employer] generated this result transmitted ref erence range: 1.56 - 6 .13 K/L. The refe rence range was not u sed to interpret this result as normal/abnor mal. # Lymphs (test code = 0.99 See_Comment L [Auto mated message] 414) The system [employer] generated this result transmitted ref erence range: 1.18 - 3 .74 K/L. The refe rence range was not u sed to interpret this result as normal/abnor mal. # Monos (test code = 0.83 See_Comment H [Autom ated message] 415) The system [employer] generated this result transmitted ref erence range: 0.24 - 0 .36 K/L. The refe rence range was not u sed to interpret this result as normal/abnor mal. # Eos (test code = 416) 0.33 See_Comment [Au tomated message] The system [employer] generated this result transmitted ref erence range: 0.04 - 0 .36 K/L. The refe rence range was not u sed to interpret this result as normal/abnor mal. # Baso (test code = 417) 0.04 See_Comment [A utomated message] The system [employer] generated this result transmitted ref erence range: 0.01 - 0 .08 K/L. The refe rence range was not u sed to interpret this result as normal/abnor mal. Immature 1 % 0-1 Granulocytes-Relative (test code = 2801) Lab Interpretation (test Abnormal code = 55958-1) [facility] W/PLT COUNT & AUTO [id number] 06:38:55 Test Item Value Reference Range Interpretation [...] = 2801) CBC W/PLT COUNT & AUTO [id number] 10:18:58 Test Item Value Reference Range Interpretation [...] (BEAKER) (test code = 2801) BASIC METABOLIC [id number] 08:06:00 Test Item Value Reference Range Interpretation [...] NOT APPLICABLE FOR DIALYSIS PATIEN TS. [employer] [place] ID - MARLON Ferrera moderately ictericHEPATIC FUNCTION [id number] 08:06:00 Test Item Value Reference Range Interpretation [...] code = 19 U/L 6-55 347) [employer] [place] ID - MARLON Ferrera moderately ictericPROTHROMBIN TIME/[id number] 07:51:15 Test Item Value Reference Range Interpretation Comments PROTIME (BEAKER) 20.6 seconds 11.9-14.2 H (test code = 759) INR (BEAKER) (test 1.80 See_Comment [Automat ed message] code = 370) The system [employer] generated this result transmitted ref erence range: <=5.90. The reference range was not used to int erpret this result as normal/abnormal . RECOMMENDED COUMADIN/WARFARIN INR THERAPY RANGESSTANDARD DOSE: 2.0 - 3.0 Includes: PROPHYLAXIS for venous thrombosis, systemic embolization; TREATMENT for venous thrombosis and/or pulmonary embolus.HIGH RISK: Target INR is 2.5-3.5 for patients with mechanical heart valves.HEPATIC FUNCTION [id number] 07:41:30 Test Item Value Reference Range Interpretation [...] code = 21 U/L 6-55 347) [place] ID - PIRADHA KENTpecsundeepn moderately ictericBASIC METABOLIC [id number] 07:41:29 Test Item Value Reference Range Interpretation [...] NOT APPLICABLE FOR DIALYSIS PATIEN TS. [employer] [place] ID - PIAYA LSpecimen moderately ictericPROTHROMBIN TIME/[id number] 07:34:58 Test Item Value Reference Range Interpretation Comments PROTIME (BEAKER) 19.3 seconds 11.9-14.2 H (test code = 759) INR (BEAKER) (test 1.66 See_Comment [Automat ed message] code = 370) The system [employer] generated this result transmitted ref erence range: <=5.90. The reference range was not used to int erpret this result as normal/abnormal . RECOMMENDED COUMADIN/WARFARIN INR THERAPY RANGESSTANDARD DOSE: 2.0 - 3.0 Includes: PROPHYLAXIS for venous thrombosis, systemic embolization; TREATMENT for venous thrombosis and/or pulmonary embolus.HIGH RISK: Target INR is 2.5-3.5 for patients with mechanical heart valves.CBC W/PLT COUNT & AUTO [id number] 07:30:35 Test Item Value Reference Range Interpretation [...] PERCENT (BEAKER) (test code = 2801) VITAMIN [id number] 07:00:04 Test Item Value Reference Range Interpretation Comments VITAMIN B12 (BEAKER) (test code = > pg/mL 213-816 H 774) [place] ID - ZAC WBASIC METABOLIC [id number] 06:43:51 Test Item Value Reference Range Interpretation [...] NOT APPLICABLE FOR DIALYSIS PATIEN TS. [employer] [place] ID - ZAC WOperator ID - MARLON LSpecimen slightly ictericVITAMIN D, [id number] 05:27:33 Test Item Value Reference Range Interpretation Comments VITAMIN D 25-OH (BEAKER) (test code 4.4 ng/mL 6.6-49.9 L = 2764) Effective 05/22/2017: Reference Range ChangeNew: 6.6-49.9 ng/mL Previous: 13.0- 47.8 ng/mLRecommendedVitamin D Target Range: 30.0-40.0 ng/mLOperator ID - MARLON LC-REACTIVE [id number] 05:23:46 Test Item Value Reference Range Interpretation Comments C-REACTIVE PROTEIN (BEAKER) (test 1.00 mg/dL 0.00-0.50 H code = 676) [employer] [place] ID - ZAC [id number] 05:23:45 Test Item Value Reference Range Interpretation Comments MAGNESIUM (BEAKER) (test code = 1.6 mg/dL 1.6-2.6 627) Manager [place] ID - ZAC WHEPATIC FUNCTION [id number] 05:23:45 Test Item Value Reference Range Interpretation [...] code = 17 U/L 6-55 347) Manager [place] ID - ZAC WSpecimen slightly ictericPROTHROMBIN TIME/[id number] 04:53:27 Test Item Value Reference Range Interpretation Comments PROTIME (BEAKER) 22.4 seconds 11.9-14.2 H (test code = 759) INR (BEAKER) (test 2.00 See_Comment [Automat ed message] code = 370) The system [employer] generated this result transmitted ref erence range: <=5.90. The reference range was not used to int erpret this result as normal/abnormal . RECOMMENDED COUMADIN/WARFARIN INR THERAPY RANGESSTANDARD DOSE: 2.0 - 3.0 Includes: PROPHYLAXIS for venous thrombosis, systemic embolization; TREATMENT for venous thrombosis and/or pulmonary embolus.HIGH RISK: Target INR is 2.5-3.5 for patients with mechanical heart valves.CBC W/PLT COUNT & AUTO [id number] 04:49:49 Test Item Value Reference Range Interpretation [...] (BEAKER) (test code = 2801) Basic Metabolic [id number] 08:26:03 Test Item Value Reference Range Interpretation Comments Sodium (test code = 137 meq/L 780-806 2975-2) Potassium (test code 3.5 meq/L 3.5-5.1 = 2823-3) Chloride (test code = 109 meq/L 98-107 H 2075-0) CO2 (test code = 24 meq/L 22-29 2028-9) BUN (test code = 13 mg/dL 7-21 3094-0) Creatinine (test code 0.73 mg/dL 0.57-1.25 = 2160-0) Glucose (test code = 85 mg/dL 70-105 2345-7) Calcium (test code = 7.7 mg/dL 8.4-10.2 L 12473-6) EGFR (test code = 81 mL/min/1.73 [place] [address]-7) NOT ACCURATE CREATININE CLEARANCE IN PREDICTING GLOMERULAR FILTRATION RATE . ESTIMATED GFR I S NOT APPLICABLE FOR DIALYSIS PATIENTS. REJI (test code = REJI) Manager [place] ID - ELODIARADHA Nadya ID - DBSpecimen slightly icteric Lab Interpretation Abnormal (test code = 69078-4) [facility] [id number] 08:26:03 Test Item Value Reference Range Interpretation [...] NOT APPLICABLE FOR DIALYSIS PATIEN TS. Manager [place] ID - MARLON [place] ID - DBSpecimen slightly ictericHepatic function apmuz2377-84-75 07:24:45 Test Item Value Reference Range Interpretation Comments Protein, Total (test 4.9 See_Comment L [Autom ated code = 2885-2) message] The system which generated this result transmitted reference range : 6.0 - 8.3 gm/dL . The reference range was not used to interpr et this result as normal/abnormal . Albumin (test code = 2.2 g/dL 3.5-5.0 L 63381-9) Total Bilirubin (test 4.0 mg/dL 0.2-1.2 H code = 1974-2) Bilirubin, Direct 1.5 mg/dL 0.1-0.5 H (test code = 1967-7) Alkaline Phosphatase 111 U/L 40-150 (test code = 6768-6) AST (test code = 53 U/L 5-34 H 1920-8) ALT (test code = 17 U/L 6-55 1742-6) REJI (test code = REJI) Manager [place] ID - MARLON LSpecsundeepn slightly icteric Lab Interpretation Abnormal (test code = 08357-3) [facility]2022-01-31 07:24:45 Test Item Value Reference Range Interpretation Comments Magnesium (test code = 1.7 mg/dL 1.6-2.6 06525-7) REJI (test code = REJI) Manager [place] ID - MARLON L Lab Interpretation (test Normal code = 13718-0) [facility] 07:24:45 Test Item Value Reference Range Interpretation Comments MAGNESIUM (BEAKER) (test code = 1.7 mg/dL 1.6-2.6 627) Manager [place] ID - MARLON LHEPATIC FUNCTION [id number] 07:24:45 Test Item Value Reference Range Interpretation [...] code = 17 U/L 6-55 347) Manager [place] ID - MARLON KENTpecimekorin slightly ictericProthrombin time/LES4549-80-48 06:40:57 Test Item Value Reference Interpretation Comments Range Protime (test code = 22.5 See_Comment H [Autom ated 4192-2) message] The system which generated this result transmitted reference range : 11.9 - 14.2 seconds. The reference range was not used to interpret this result as normal/abnormal . INR (test code = 2.01 See_Comment [Automated 5791-6) message] The system which generated this result [...] valves. Lab Interpretation Abnormal (test code = 01719-5) [facility] HospitalPROTHROMBIN [facility]/[id number] 06:40:57 Test Item Value Reference Range Interpretation [...] heart valves.CBC with platelet count + automated hqsq5355-75-54 06:36:06 Test Item Value Reference Range Interpretation Comments WBC (test code = 6690-2) 10.6 See_Comment H [A utomated message] The system [employer] generated this result transmitted ref erence range: 3.5 - 10 .5 K/L. The refe rence range was not u sed to interpret this result as normal/abnor mal. RBC (test code = 789-8) 2.76 See_Comment L [Au tomated message] The system [employer] generated this result transmitted ref erence range: 3.93 - 5 .22 M/L. The refe rence range was not u sed to interpret this result as normal/abnor mal. MCHC (test code = 786-4) 31.5 See_Comment L [A utomated message] The system [employer] generated this result transmitted ref erence range: [...] L [Aut omated message] 777-3) The system [employer] generated this result transmitted ref erence range: 150 - 45 0 K/CU MM. The referen ce range was not u sed to interpret this result as normal/abnor mal. MPV (test code = 9.6 fL 9.4-12.3 48496-5) nRBC (test code = 413) 0 See_Comment [Aut omated message] The system [employer] generated this result transmitted ref erence range: [...] H [Aut omated message] 670) The system [employer] generated this result transmitted ref erence range: 1.56 - 6 .13 K/L. The refe rence range was not u sed to interpret this result as normal/abnor mal. # Lymphs (test code = 1.18 See_Comment [Auto mated message] 414) The system [employer] generated this result transmitted ref erence range: 1.18 - 3 .74 K/L. The refe rence range was not u sed to interpret this result as normal/abnor mal. # Monos (test code = 0.64 See_Comment H [Autom ated message] 415) The system [employer] generated this result transmitted ref erence range: 0.24 - 0 .36 K/L. The refe rence range was not u sed to interpret this result as normal/abnor mal. # Eos (test code = 416) 0.31 See_Comment [Au tomated message] The system [employer] generated this result transmitted ref erence range: 0.04 - 0 .36 K/L. The refe rence range was not u sed to interpret this result as normal/abnor mal. # Baso (test code = 417) 0.02 See_Comment [A utomated message] The system [employer] generated this result transmitted ref erence range: 0.01 - 0 .08 K/L. The refe rence range was not u sed to interpret this result as normal/abnor mal. Immature 1 % 0-1 Granulocytes-Relative (test code = 2801) Lab Interpretation (test Abnormal code = 48477-3) [facility] W/PLT COUNT & AUTO [id number] 06:36:06 Test Item Value Reference Range Interpretation [...] (BEAKER) (test code = 2801) BASIC METABOLIC [id number] 09:04:28 Test Item Value Reference Range Interpretation [...] NOT APPLICABLE FOR DIALYSIS PATIEN TS. Manager [place] ID - DBSpecimen moderately alvmeuiXNITXDZAL5346-49-18 08:26:10 Test Item Value Reference Range Interpretation Comments MAGNESIUM (BEAKER) (test code = 1.8 mg/dL 1.6-2.6 627) Manager [place] ID - DBHEPATIC FUNCTION NMKIK4658-75-16 08:26:10 Test Item Value Reference Range Interpretation [...] code = 17 U/L 6-55 347) Manager [place] ID - DBSpecimen moderately ictericPROTHROMBIN TIME/[id number] 07:14:13 Test Item Value Reference Range Interpretation Comments PROTIME (BEAKER) 23.1 seconds 11.9-14.2 H (test code = 759) INR (BEAKER) (test 2.08 See_Comment [Automat ed message] code = 370) The system [employer] generated this result transmitted ref erence range: <=5.90. The reference range was not used to int erpret this result as normal/abnormal . RECOMMENDED COUMADIN/WARFARIN INR THERAPY RANGESSTANDARD DOSE: 2.0 - 3.0 Includes: PROPHYLAXIS for venous thrombosis, systemic embolization; TREATMENT for venous thrombosis and/or pulmonary embolus.HIGH RISK: Target INR is 2.5-3.5 for patients with mechanical heart valves.CBC W/PLT COUNT & AUTO [id number] 07:07:41 Test Item Value Reference Range Interpretation [...] (BEAKER) (test code = 2801) BASIC METABOLIC [id number] 09:04:18 Test Item Value Reference Range Interpretation [...] NOT APPLICABLE FOR DIALYSIS PATIEN TS. Manager [place] ID - DBOperator ID - DBSpecimen moderately ictericHEPATIC FUNCTION [id number] 07:53:06 Test Item Value Reference Range Interpretation [...] code = 16 U/L 6-55 347) Manager [place] ID - DBSpecimen moderately ictericManual Bowjmmknnpqu2502-99-43 07:50:25 Test Item Value Reference Range Interpretation [...] Ovalocytes (test code = 1+ few 477) [place] Cells (test code = 1+ few 474) Artifact (test code = Present 3432) Platelet Conc (test code Decreased = 3438) REJI (test code = REJI) Manager [place] ID - michaela Cutler comments: Slide comments: Lab Interpretation (test Abnormal code = 67271-4) [facility] Ophcizdmfiaz5954-14-39 07:50:25 Test Item Value Reference Range Interpretation [...] 3438) REJI (test code = REJI) Manager [place] ID - michaela herndonShielachristiana comments: Slide comments: Lab Interpretation (test Abnormal code = 12751-2) [facility] Jkiexadnuffd7383-16-73 07:50:25 Test Item Value Reference Range Interpretation [...] Ovalocytes (test code = 1+ few 477) [place] Cells (test code = 1+ few 474) Artifact (test code = Present 3432) Platelet Conc (test code Decreased = 3438) REJI (test code = REJI) Manager [place] ID - michaela katrinaUser comments: Slide comments: Lab Interpretation (test Abnormal code = 52704-9) [facility] Iqaxibfdyzug5449-30-85 07:50:25 Test Item Value Reference Range Interpretation [...] Ovalocytes (test code = 1+ few 477) [place] Cells (test code = 1+ few 474) Artifact (test code = Present 3432) Platelet Conc (test code Decreased = 3438) REJI (test code = REJI) Manager [place] ID - michaela katrinaUser comments: Slide comments: Lab Interpretation (test Abnormal code = 69307-4) [facility](CELLAVISION MANUAL DIFF)2021-09-09 07:50:25 Test Item Value [...] Decreased (CELLAVISION)(BEAKER) (test code = 3438) Manager [place] ID - michaela Cutler comments: Slide comments:CBC W/PLT COUNT & AUTO VSRCXJEWJTAX4594-30-10 07:50:24 Test Item Value Reference Range Interpretation [...] WBC 0-0 (test code = 413) PROTHROMBIN TIME/[id number] 06:28:05 Test Item Value Reference Range Interpretation Comments PROTIME (BEAKER) 24.0 seconds 11.9-14.2 H (test code = 759) INR (BEAKER) (test 2.18 See_Comment [Automat ed message] code = 370) The system [employer] generated this result transmitted ref erence range: [...] = No growth in 5 days 6463-4) [facility] (Right Venipuncture) 2021-09-08 14:01:01 Test Item Value Reference Range Interpretation Comments Result (test code = No growth in 5 days 6463-4) [facility] (Right Venipuncture) 2021-09-08 14:01:01 Test Item Value Reference Range Interpretation Comments Result (test code = No growth in 5 days 6463-4) [facility] (Right Venipuncture) 2021-09-08 14:01:01 Test Item Value Reference Range Interpretation Comments Result (test code = No growth in 5 days 6463-4) [facility] HospitalBLOOD [id number] 14:01:01 Test Item Value Reference Range Interpretation Comments CULTURE (BEAKER) (test No growth in 5 days code = 1095) [id number] 11:09:32 Test Item Value Reference Range Interpretation Comments Ammonia (test code = 35 See_Comment [Autom ated 27630-6) message] The system which generated this result transmit barron reference range : 18 - 72 mol/L . The reference range was not u sed to interpret th is result as normal/abnormal . REJI (test code = REJI) Manager [place] ID - PIAYA L Lab Interpretation Normal (test code = 91708-5) [facility] 11:09:32 Test Item Value Reference Range Interpretation Comments Ammonia (test code = 35 See_Comment [Autom ated 54629-9) message] The system which generated this result transmit barron reference range : 18 - 72 mol/L . The reference range was not u sed to interpret th is result as normal/abnormal . REJI (test code = REJI) Manager [place] ID - PIAYA L Lab Interpretation Normal (test code = 20960-2) [facility] 11:09:32 Test Item Value Reference Range Interpretation Comments Ammonia (test code = 35 See_Comment [Autom ated 37126-6) message] The system which generated this result transmit barron reference range : 18 - 72 mol/L . The reference range was not u sed to interpret th is result as normal/abnormal . REJI (test code = REJI) Manager [place] ID - PIAYA L Lab Interpretation Normal (test code = 59182-5) [facility] 11:09:32 Test Item Value Reference Range Interpretation Comments Ammonia (test code = 35 See_Comment [Autom ated 88423-2) message] The system which generated this result transmit barron reference range : 18 - 72 mol/L . The reference range was not u sed to interpret th is result as normal/abnormal . REJI (test code = REJI) Manager [place] ID - PIAYA L Lab Interpretation Normal (test code = 78859-3) [facility] 11:09[facility]32 Test Item Value Reference Range Interpretation Comments AMMONIA (BEAKER) (test code = 348) 35 mol/L 18-72 Manager [place] ID - PIAYA LCBC W/PLT COUNT & AUTO [id number] 07:57:44 Test Item Value Reference Range Interpretation [...] Decreased (CELLAVISION)(BEAKER) (test code = 3438) Manager [place] ID - Phyllis comments: Slide comments:BASIC METABOLIC [id number] 06:46:23 Test Item Value Reference Range Interpretation [...] NOT APPLICABLE FOR DIALYSIS PATIEN TS. Manager [place] ID - ZAC WSpecimen slightly pcbfmjlZavorpnhsy0265-63-24 06:42:47 Test Item Value Reference Range Interpretation Comments Phosphorus (test code = 2.4 mg/dL 2.3-4.7 2777-1) REJI (test code = REJI) Manager [place] ID - ZAC W Lab Interpretation (test Normal code = 12824-3) [facility] 06:42:47 Test Item Value Reference Range Interpretation Comments Phosphorus (test code = 2.4 mg/dL 2.3-4.7 2777-1) REJI (test code = REJI) Manager [place] ID - ZAC W Lab Interpretation (test Normal code = 68267-5) [facility] 06:42:47 Test Item Value Reference Range Interpretation Comments Phosphorus (test code = 2.4 mg/dL 2.3-4.7 2777-1) REJI (test code = REJI) Manager [place] ID - ZAC W Lab Interpretation (test Normal code = 72560-6) [facility]22-[facility] 06:42:47 Test Item Value Reference Range Interpretation Comments Phosphorus (test code = 2.4 mg/dL 2.3-4.7 2777-1) REJI (test code = REJI) Manager [place] ID - ZAC W Lab Interpretation (test Normal code = 75445-0) [facility]OSPHORUS2022[facility] 06:42:47 Test Item Value Reference Range Interpretation Comments PHOSPHORUS (BEAKER) (test code = 2.4 mg/dL 2.3-4.7 604) Manager [place] ID Ajay FRANK WHEPATIC FUNCTION [id number] 06:42:47 Test Item Value Reference Range Interpretation [...] code = 15 U/L 6-55 347) Manager [place] ID Ajay FRANK WSpecimen slightly ictericPROTHROMBIN TIME/[id number] 05:37:24 Test Item Value Reference Range Interpretation Comments PROTIME (BEAKER) 26.6 seconds 11.9-14.2 H (test code = 759) INR (BEAKER) (test 2.48 See_Comment [Automat ed message] code = 370) The system [employer] generated this result transmitted ref erence range: [...] Decreased (CELLAVISION)(BEAKER) (test code = 3438) Manager [place] ID - Cindy Gibson comments: Slide comments:CBC W/PLT COUNT & AUTO [id number] 09:40:43 Test Item Value Reference Range Interpretation [...] 0-0 (test code = 413) BASIC METABOLIC [id number] 07:22:45 Test Item Value Reference Range Interpretation [...] NOT APPLICABLE FOR DIALYSIS PATIEN TS. Manager [place] ID - MARLON LSpecimen slightly yedjhshHUGXGWRMWV4315-84-35 07:16:27 Test Item Value Reference Range Interpretation Comments PHOSPHORUS (BEAKER) (test code = 2.2 mg/dL 2.3-4.7 L 604) Manager [place] ID - MARLON LHEPATIC FUNCTION [id number] 07:16:27 Test Item Value Reference Range Interpretation [...] code = 17 U/L 6-55 347) Manager [place] ID - MARLON KENTpecimen slightly ictericBLOOD NTNDCWX8862-71-16 07:00:33 Test Item Value Reference Range Interpretation Comments CULTURE (BEAKER) (test No growth in 5 days code = 1095) PROTHROMBIN TIME/[id number] 06:15:38 Test Item Value Reference Range Interpretation Comments PROTIME (BEAKER) 25.1 seconds 11.9-14.2 H (test code = 759) INR (BEAKER) (test 2.31 See_Comment [Automat ed message] code = 370) The system [employer] generated this result transmitted ref erence range: <=5.90. The reference range was not used to int erpret this result as normal/abnormal . RECOMMENDED COUMADIN/WARFARIN INR THERAPY RANGESSTANDARD DOSE: 2.0 - 3.0 Includes: PROPHYLAXIS for venous thrombosis, systemic embolization; TREATMENT for venous thrombosis and/or pulmonary embolus.HIGH RISK: Target INR is 2.5-3.5 for patients with mechanical heart valves.Ova and Parasite Stsbvmyhisy2152-38-04 08:26:13 Test Item Value Reference Range Interpretation Comments O&P Direct Smear (test No ova or parasites No ova or code = 08355-7) seen parasites seen REJI (test code = REJI) See scanned report Lab Interpretation (test Normal code = 87843-5) [facility] Hospital[facility] Pxjydcjplun7904-45-89 08:26:13 Test Item Value Reference Range Interpretation Comments O&P Direct Smear (test No ova or parasites No ova or code = 15768-6) seen parasites seen REJI (test code = REJI) See scanned report Lab Interpretation (test Normal code = 23072-6) [facility] and Parasite Sbripcyssjj3820-30-21 08:26:13 Test Item Value Reference Range Interpretation Comments O&P Direct Smear (test No ova or parasites No ova or code = 75486-6) seen parasites seen REJI (test code = REJI) See scanned report Lab Interpretation (test Normal code = 07244-9) [facility] Byeijnfnxfu2613-70-37 08:26:13 Test Item Value Reference Range Interpretation Comments O&P Direct Smear (test No ova or parasites No ova or code = 24033-4) seen parasites seen REJI (test code = REJI) See scanned report Lab Interpretation (test Normal code = 40711-5) [facility]OSPH[facility]US2022-01-26 07:29:32 Test Item Value Reference Range Interpretation Comments PHOSPHORUS (BEAKER) (test code = 1.5 mg/dL 2.3-4.7 LL 604) Manager [place] ID - ZAC WBASIC METABOLIC LEBFJ3608-82-81 07:09:27 Test Item Value Reference Range Interpretation [...] NOT APPLICABLE FOR DIALYSIS PATIEN TS. Manager [place] ID - ZAC WOODSpecimen slightly ictericPROTHROMBIN TIME/GQO9414-27-28 06:57:19 Test Item Value Reference Range Interpretation Comments PROTIME (BEAKER) 23.2 seconds 11.9-14.2 H (test code = 759) INR (BEAKER) (test 2.09 See_Comment [Automat ed message] code = 370) The system [employer] generated this result transmitted ref erence range: [...] (CELLAVISION)(BEAKER) 3 % 0-10 (test code = 1116) ATYPICAL LYMPHOCYTES - REL 2 % 0-0 [...] Decreased (CELLAVISION)(BEAKER) (test code = 3438) Manager [place] ID - nabil Julian comments: Slide comments:ZZNTIZXEOV6167-61-97 15:08:54 Test Item Value Reference Range Interpretation Comments PHOSPHORUS (BEAKER) (test code = 1.2 mg/dL 2.3-4.7 LL 604) Manager [place] ID - BSBASIC METABOLIC XTBOJ1439-95-05 15:04:30 Test Item Value Reference Range Interpretation [...] NOT APPLICABLE FOR DIALYSIS PATIEN TS. Manager [place] ID - BSSpecimen slightly ictericHEPATIC FUNCTION [id number] 15:02:35 Test Item Value Reference Range Interpretation [...] code = 17 U/L 6-55 347) Manager [place] ID - BSSpecimen slightly ictericPROTHROMBIN TIME/[id number] 14:50:10 Test Item Value Reference Range Interpretation [...] mechanical heart valves.CBC W/PLT COUNT & AUTO KJAFIECBJWFP7334-88-86 14:44:53 Test Item Value Reference Range Interpretation [...] (test code = 413) Clostridium difficile GDH Ucrnm2597-36-70 21:23:26 Test Item Value Reference Range Interpretation Comments C. Difficle Toxin Positive Negative A (test code = 2098937024) C. Difficile GDH Positive Negative A Confirms Antigen (test code = Clostri dium 1461036617) difficile-assoc ia barron infection.First line therapy - [...] performance was done by the [facility] Microbiology Lab prior to clinical use. Lab Interpretation Abnormal (test code = 88562-8) [facility] HospitalClostridium difficile [facility] [id number] 21:23:26 Test Item Value Reference Range Interpretation Comments C. Difficle Toxin Positive Negative A (test code = 5736625493) C. Difficile GDH Positive Negative A Confirms Antigen (test code = Clostri dium 3306081040) difficile-assoc ia barron infection.First line therapy - [...] performance was done by the [facility] Microbiology Lab prior to clinical use. Lab Interpretation Abnormal (test code = 91860-1) [facility] HospitalClostridium difficile [facility] [id number] 21:23:26 Test Item Value Reference Range Interpretation Comments C. Difficle Toxin Positive Negative A (test code = 7043828892) C. Difficile GDH Positive Negative A Confirms Antigen (test code = Clostri dium 1747637748) difficile-assoc ia barron infection.First line therapy - [...] performance was done by the [facility] Microbiology Lab prior to clinical use. Lab Interpretation Abnormal (test code = 38870-1) [facility] [id number] 21:23:26 Test Item Value Reference Range Interpretation Comments C. Difficle Toxin Positive Negative A (test code = 8071391000) C. Difficile GDH Positive Negative A Confirms Antigen (test code = Clostri dium 1772408718) difficile-assoc ia barron infection.First line therapy - [...] performance was done by the [facility] Microbiology Lab prior to clinical use. Lab Interpretation Abnormal (test code = 69690-5) [facility]. DIFFICILE GDH [id number] 21:23:26 Test Item Value Reference Range Interpretation Comments CDT TOXIN (test code Positive Negative A = 9074476172) CDT GDH ANTIGEN Positive Negative A Confirms Maria Esther stridium (test code = difficile-assoc iated 7868496932) infection.First line therapy - oral Vancomycin. Con [...] performance was done by the [facility] MicrobiologyLab prior to clinical use.CT, CHEST, WITH [id number] 10:14:00Unlisted Reason for Exam - Click Yes and Enter Reason Below->No [facility] 1960 Sex: [...] spleen. Small volume ascites. Signed: Quentin Sims [facility] Verified Date/Time: 09/04/2021 10:14:08 CT, [id number] 10:14:00Unlisted Reason for Exam - Click Yes and Enter Reason Below->No Is this for enterography?->YesWill this procedure require oral contrast?->Yes [facility] 1960 Sex: [...] Decreased (CELLAVISION)(BEAKER) (test code = 3438) Manager [place] ID - michaela Cutler comments: Slide comments:CBC W/PLT COUNT & AUTO [id number] 07:25:32 Test Item Value Reference Range Interpretation [...] /100 WBC 0-0 (test code = 413) [id number] 06:26:19 Test Item Value Reference Range Interpretation Comments PHOSPHORUS (BEAKER) (test code = 1.5 mg/dL 2.3-4.7 LL 604) Manager [place] ID - ZAC WComprehensive metabolic iefzj8415-85-53 06:18:30 Test Item Value Reference Range Interpretation Comments Protein, Total (test 4.7 See_Comment L [Autom ated code = 2885-2) message] The system which generated this result transmitted reference range : 6.0 - 8.3 gm/dL . The reference range was not used to interpr et this result as normal/abnormal . Albumin (test code = 2.7 g/dL 3.5-5.0 L 60621-9) Alkaline Phosphatase 85 U/L 40-150 (test code [...] (test code = 7.3 mg/dL 8.4-10.2 L 11539-1) AST (test code = 28 U/L 5-34 1920-8) ALT (test code = 14 U/L 6-55 1742-6) EGFR (test code = 53 mL/min/1.[place] [address]-1) NOT ACCURATE CREATININE CLEARANCE IN PREDICTING GLOMERULAR FILTRATION RATE . ESTIMATED GFR I S NOT APPLICABLE FOR DIALYSIS PATIENTS. REJI (test code = REJI) Manager [place] ID - ZAC WOODSpecnicole slightly icteric Lab Interpretation Abnormal (test code = 27216-2) [facility] HospitalCom[facility] [id number] 06:18:30 Test Item Value Reference Range Interpretation Comments Protein, Total (test 4.7 See_Comment L [Autom ated code = 2885-2) message] The system which generated this result transmitted reference range : 6.0 - 8.3 gm/dL . The reference range was not used to interpr et this result as normal/abnormal . Albumin (test code = 2.7 g/dL 3.5-5.0 L 22660-7) Alkaline Phosphatase 85 U/L 40-150 (test code [...] (test code = 7.3 mg/dL 8.4-10.2 L 03430-5) AST (test code = 28 U/L 5-34 1920-8) ALT (test code = 14 U/L 6-55 1742-6) EGFR (test code = 53 mL/min/1.[place] [address]-7) NOT ACCURATE CREATININE CLEARANCE IN PREDICTING GLOMERULAR FILTRATION RATE . ESTIMATED GFR I S NOT APPLICABLE FOR DIALYSIS PATIENTS. REJI (test code = REJI) Manager [place] ID - ZAC WSpecimen slightly icteric Lab Interpretation Abnormal (test code = 02011-1) [facility]Com[facility] [id number] 06:18:30 Test Item Value Reference Range Interpretation Comments Protein, Total (test 4.7 See_Comment L [Autom ated code = 2885-2) message] The system which generated this result transmitted reference range : 6.0 - 8.3 gm/dL . The reference range was not used to interpr et this result as normal/abnormal . Albumin (test code = 2.7 g/dL 3.5-5.0 L 34359-6) Alkaline Phosphatase 85 U/L 40-150 (test code [...] (test code = 7.3 mg/dL 8.4-10.2 L 31484-5) AST (test code = 28 U/L 5-34 1920-8) ALT (test code = 14 U/L 6-55 1742-6) EGFR (test code = 53 mL/min/1.73 [place] [address]-8) NOT ACCURATE CREATININE CLEARANCE IN PREDICTING GLOMERULAR FILTRATION RATE . ESTIMATED GFR I S NOT APPLICABLE FOR DIALYSIS PATIENTS. REJI (test code = REJI) Manager [place] ID - ZAC WSpecimen slightly icteric Lab Interpretation Abnormal (test code = 84614-5) [facility] [id number] 06:18:30 Test Item Value Reference Range Interpretation Comments Protein, Total (test 4.7 See_Comment L [Autom ated code = 2885-2) message] The system which generated this result transmitted reference range : 6.0 - 8.3 gm/dL . The reference range was not used to interpr et this result as normal/abnormal . Albumin (test code = 2.7 g/dL 3.5-5.0 L 01789-8) Alkaline Phosphatase 85 U/L 40-150 (test code [...] (test code = 7.3 mg/dL 8.4-10.2 L 82417-0) AST (test code = 28 U/L 5-34 1920-8) ALT (test code = 14 U/L 6-55 1742-6) EGFR (test code = 53 mL/min/1.[place] [address]-9) NOT ACCURATE CREATININE CLEARANCE IN PREDICTING GLOMERULAR FILTRATION RATE . ESTIMATED GFR I S NOT APPLICABLE FOR DIALYSIS PATIENTS. REJI (test code = REJI) Manager [place] ID - ZAC WOODSpecnicole slightly icteric Lab Interpretation Abnormal (test code = 60906-5) [facility]COM[facility] METAB[facility] [id number] 06:18:30 Test Item Value Reference Range Interpretation [...] NOT APPLICABLE FOR DIALYSIS PATIEN TS. Manager [place] ID - ZAC WSpecimen slightly [id number] 06:13:05 Test Item Value Reference Range Interpretation Comments MAGNESIUM (BEAKER) (test code = 2.3 mg/dL 1.6-2.6 627) Manager [place] ID - ZAC W(CELLAVISION MANUAL DIFF)2021-09-03 14:33:56 [...] Decreased (CELLAVISION)(BEAKER) (test code = 3438) Manager [place] ID - Claudine Rios comments: Slide comments:CBC W/PLT COUNT & AUTO [id number] 14:33:55 Test Item Value Reference Range Interpretation [...] (test code = 413) Hepatitis B surface [id number] 13:30:11 Test Item Value Reference Range Interpretation Comments Hep B S Ab (test code <8.0 See_Comment [Auto mated = 34292-0) message] The system which generated this result transmit barron reference range : <8.0 mIU/mL. Th e reference range was not used to interpret this result as normal/abnormal . REJI (test code = REJI) Manager [place] ID - PIAYA L Lab Interpretation Normal (test code = 65320-9) [facility] surface [id number] 13:30:11 Test Item Value Reference Range Interpretation Comments Hep B S Ab (test code <8.0 See_Comment [Auto mated = 68230-0) message] The system which generated this result transmit barron reference range : <8.0 mIU/mL. Th e reference range was not used to interpret this result as normal/abnormal . REJI (test code = REJI) Manager [place] ID - MARLON L Lab Interpretation Normal (test code = 51330-4) [facility]He[facility] surface [id number] 13:30:11 Test Item Value Reference Range Interpretation Comments Hep B S Ab (test code <8.0 See_Comment [Auto mated = 39187-0) message] The system which generated this result transmit barron reference range : <8.0 mIU/mL. Th e reference range was not used to interpret this result as normal/abnormal . REJI (test code = REJI) Manager [place] ID - MARLON L Lab Interpretation Normal (test code = 98787-4) [facility] surface [id number] 13:30:11 Test Item Value Reference Range Interpretation Comments Hep B S Ab (test code <8.0 See_Comment [Auto mated = 14044-8) message] The system which generated this result transmit barron reference range : <8.0 mIU/mL. Th e reference range was not used to interpret this result as normal/abnormal . REJI (test code = REJI) Manager [place] ID - MARLON L Lab Interpretation Normal (test code = 57543-1) [facility] SURFACE [id number] 13:30:11 Test Item Value Reference Range Interpretation Comments HEPATITIS B SURFACE ANTIBODY < mIU/mL <8.0 (BEAKER) (test code = 647) Manager [place] ID - MARLON LHepatitis A antibody, [id number] 13:23:53 Test Item Value Reference Range Interpretation Comments Hep A IgG (test code = Nonreactive Nonreactive 03803-9) REJI (test code = REJI) Manager [place] ID - MARLON L Lab Interpretation (test Normal code = 99536-8) [facility] Hospital[facility] antibody, [id number] 13:23:53 Test Item Value Reference Range Interpretation Comments Hep A IgG (test code = Nonreactive Nonreactive 40084-0) REJI (test code = REJI) Manager [place] ID - PIRADHA L Lab Interpretation (test Normal code = 55700-3) [facility] A antibody, [id number] 13:23:53 Test Item Value Reference Range Interpretation Comments Hep A IgG (test code = Nonreactive Nonreactive 81810-3) REJI (test code = REJI) Manager [place] ID - PIAYA L Lab Interpretation (test Normal code = 07818-0) [facility], [id number] 13:23:53 Test Item Value Reference Range Interpretation Comments Hep A IgG (test code = Nonreactive Nonreactive 46724-7) REJI (test code = REJI) Manager [place] ID - PIAYA L Lab Interpretation (test Normal code = 19499-1) [facility], [id number] 13:23:53 Test Item Value Reference Range Interpretation Comments HEPATITIS A IGG ANTIBODY (BEAKER) Nonreactive Nonreactive (test code = 2797) Manager [place] ID - PIAYA LHepatitis B core antibody, [id number] 13:23:52 Test Item Value Reference Range Interpretation Comments Hep B Core Total Ab Nonreactive Nonreactive (test code = 88348-3) REJI (test code = REJI) Manager [place] ID - PIAYA L Lab Interpretation (test Normal code = 00104-4) [facility] C [id number] 13:23:52 Test Item Value Reference Range Interpretation Comments Hepatitis C Ab (test Nonreactive Nonreactive code = 14389-3) REJI (test code = REJI) Manager [place] ID - PIAYA L Lab Interpretation (test Normal code = 15060-0) [facility] core antibody, [id number] 13:23:52 Test Item Value Reference Range Interpretation Comments Hep B Core Total Ab Nonreactive Nonreactive (test code = 34929-4) REJI (test code = REJI) Manager [place] ID - PIAYA L Lab Interpretation (test Normal code = 74057-6) [facility] B core antibody, [id number] 13:23:52 Test Item Value Reference Range Interpretation Comments Hep B Core Total Ab Nonreactive Nonreactive (test code = 40243-2) REJI (test code = REJI) Manager [place] ID - PIAYA L Lab Interpretation (test Normal code = 29045-3) [facility] B core antibody, [id number] 13:23:52 Test Item Value Reference Range Interpretation Comments Hep B Core Total Ab Nonreactive Nonreactive (test code = 39225-4) REJI (test code = REJI) Manager [place] ID - PIAYA L Lab Interpretation (test Normal code = 14351-0) [facility] HospitalHEPAT[facility] C [id number] 13:23:52 Test Item Value Reference Range Interpretation Comments HEPATITIS C ANTIBODY (BEAKER) Nonreactive Nonreactive (test code = 367) Manager [place] ID Ajay MASON LHEPATITIS B CORE ANTIBODY, [id number] 13:23:52 Test Item Value Reference Range Interpretation Comments HEPATITIS B CORE TOTAL ANTIBODY Nonreactive Nonreactive (BEAKER) (test code = 497) Manager [place] ID Ajay MASON LHepatitis B surface [id number] 13:23:51 Test Item Value Reference Range Interpretation Comments HBsAg Screen (test code Nonreactive Nonreactive = 5195-3) REJI (test code = REJI) Specimen is considered negative for HBsAg. Lab Interpretation (test Normal code = 97730-3) [facility] SURFACE [id number] 13:23:51 Test Item Value Reference Range Interpretation [...] NOT APPLICABLE FOR DIALYSIS PATIEN TS. Manager [place] ID - MARLON LSpecimen slightly [id number] 12:58:51 Test Item Value Reference Range Interpretation Comments MAGNESIUM (BEAKER) (test code = 2.1 mg/dL 1.6-2.6 627) Manager [place] ID - MARLON [id number] 12:58:51 Test Item Value Reference Range Interpretation Comments PHOSPHORUS (BEAKER) (test code = 2.3 mg/dL 2.3-4.7 604) Manager [place] ID - MARLON LPROTHROMBIN TIME/[id number] 12:56:09 Test Item Value Reference Range Interpretation Comments PROTIME (BEAKER) 23.4 seconds 11.9-14.2 H (test code = 759) INR (BEAKER) (test 2.10 See_Comment [Automat ed message] code = 370) The system [employer] generated this result transmitted ref erence range: <=5.90. The reference range was not used to int erpret this result as normal/abnormal . RECOMMENDED COUMADIN/WARFARIN INR THERAPY RANGESSTANDARD DOSE: 2.0 - 3.0 Includes: PROPHYLAXIS for venous thrombosis, systemic embolization; TREATMENT for venous thrombosis and/or pulmonary embolus.HIGH RISK: Target INR is 2.5-3.5 for patients with mechanical heart valves.Urine [id number] 12:15:06 Test Item Value Reference Range Interpretation Comments Result (test code = 6463-4) No growth [facility] [id number] 12:15:06 Test Item Value Reference Range Interpretation Comments Result (test code = 6463-4) No growth [facility] Hospital[facility] [id number] 12:15:06 Test Item Value Reference Range Interpretation Comments Result (test code = 6463-4) No growth [facility] [id number] 12:15:06 Test Item Value Reference Range Interpretation Comments Result (test code = 6463-4) No growth [facility] Path[facility] Profile by PCR -ID [id number] 12:43:22 Test Item Value Reference Range Interpretation Comments CAMPYLOBACTER (PCR) Not detected Not detected (test code = 29426-5) PLESIOMONAS SHIGELLOIDES Not detected Not detected (PCR) (test code = 43845-0) SALMONELLA (PCR) (test Not detected Not detected code = 84212-1) YERSINIA ENTEROCOLITICA Not detected Not detected (PCR) (test code = 74820-2) VIBRIO CHOLERAE (PCR) Not detected Not detected (test code = 67461-3) ENTEROAGGREGATIVE E. Not detected Not detected COLI (EAEC) BY PCR (test code = 79825-2) ENTEROPATHOGENIC E. COLI Not detected Not detected (EPEC) BY PCR (test code = 97070-6) ENTEROTOXIGENIC E. COLI Not detected Not detected (ETEC) LT/ST BY PCR (test code = 37497-3) SHIGA-LIKE Not detected Not detected TOXIN-PRODUCING E. COLI (STEC) STX1/STX2 (test code = 43921-7) E. COLI O157 (PCR) (test code = 26364-6) SHIGELLA/ENTEROINVASIVE Not detected Not detected E. COLI (EIEC) BY PCR (test code = 22879-6) CRYPTOSPORIDIUM (PCR) Not detected Not detected (test code = 18822-7) CYCLOSPORA CAYETANENSIS Not detected Not detected (PCR) (test code = 95128-8) ENTAMOEBA HISTOLYTICA Not detected Not detected (PCR) (test code = 70303-2) GIARDIA LAMBLIA (PCR) Not detected Not detected (test code = 28208-2) ADENOVIRUS F 40/41 (PCR) Not detected Not detected (test code = 63530-1) ASTROVIRUS (PCR) (test Not detected Not detected code = 72896-1) NOROVIRUS GI/GII (PCR) Not detected Not detected (test code = 50095-8) ROTAVIRUS A (PCR) (test Not detected Not detected code = 22510-8) SAPOVIRUS (I, II, IV, V) Not detected Not detected BY PCR (test code = 07783-0) VIBRIO Not detected Not detected (PARAHAEMOLYTICUS, VULNIFICUS) (test code = 74613-3) REJI (test code = REJI) Other viruses, parasites and bacteria not targeted by this PCR panel cannot be excluded; therefore clinical correlation and follow up of serology, culture results, and other molecular studies is required. The results are not intended to be used as the sole means for clinical diagnosis or patient management decisions. This sample was tested at the [facility] Molecular Diagnostics Laboratory using the [employer] Gastrointestinal Panel. It is FDA cleared and has been verified and approved by the [facility] Molecular Diagnostics Laboratory for clinical use. This laboratory is CLIA-certified and [employer] ([employer])-accredited to perform high complexity testing. [facility] by PCR -ID [id number] 12:43:22 Test Item Value Reference Range Interpretation Comments CAMPYLOBACTER PCR (test Not detected Not detected code = 55042-9) PLESIOMONAS SHIGELLOIDES Not detected Not detected (PCR) (test code = 57880-5) SALMONELLA (PCR) (test Not detected Not detected code = 27894-0) YERSINIA ENTEROCOLITICA Not detected Not detected (PCR) (test code = 52586-5) VIBRIO CHOLERAE (PCR) Not detected Not detected (test code = 21818-4) ENTEROAGGREGATIVE E. Not detected Not detected COLI (EAEC) BY PCR (test code = 91456-2) ENTEROPATHOGENIC E. COLI Not detected Not detected (EPEC) BY PCR (test code = 59194-6) ENTEROTOXIGENIC E. COLI Not detected Not detected (ETEC) LT/ST BY PCR (test code = 57266-7) SHIGA-LIKE Not detected Not detected TOXIN-PRODUCING E. COLI (STEC) STX1/STX2 (test code = 97624-6) E. COLI O157 (PCR) (test code = 81765-9) SHIGELLA/ENTEROINVASIVE Not detected Not detected E. COLI (EIEC) BY PCR (test code = 43940-2) CRYPTOSPORIDIUM (PCR) Not detected Not detected (test code = 94153-8) CYCLOSPORA CAYETANENSIS Not detected Not detected (PCR) (test code = 34329-1) ENTAMOEBA HISTOLYTICA Not detected Not detected (PCR) (test code = 15946-2) GIARDIA LAMBLIA (PCR) Not detected Not detected (test code = 83197-5) ADENOVIRUS F 40/41 (PCR) Not detected Not detected (test code = 91550-8) ASTROVIRUS (PCR) (test Not detected Not detected code = 23781-9) NOROVIRUS GI/GII (PCR) Not detected Not detected (test code = 89183-0) ROTAVIRUS A (PCR) (test Not detected Not detected code = 80282-3) SAPOVIRUS (I, II, IV, V) Not detected Not detected BY PCR (test code = 05337-6) VIBRIO Not detected Not detected (PARAHAEMOLYTICUS, VULNIFICUS) (test code = 80514-1) REJI (test code = REJI) Other viruses, parasites and bacteria not targeted by this PCR panel cannot be excluded; therefore clinical correlation and follow up of serology, culture results, and other molecular studies is required. The results are not intended to be used as the sole means for clinical diagnosis or patient management decisions. This sample was tested at the [facility] Molecular Diagnostics Laboratory using the [employer] Gastrointestinal Panel. It is FDA cleared and has been verified and approved by the [facility] Molecular Diagnostics Laboratory for clinical use. This laboratory is CLIA-certified and [employer] ([employer])-accredited to perform high complexity testing. [facility] by PCR -ID [id number] 12:43:22 Test Item Value Reference Range Interpretation Comments CAMPYLOBACTER PCR (test Not detected Not detected code = 32785-2) PLESIOMONAS SHIGELLOIDES Not detected Not detected (PCR) (test code = 72105-2) SALMONELLA (PCR) (test Not detected Not detected code = 05121-9) YERSINIA ENTEROCOLITICA Not detected Not detected (PCR) (test code = 76072-9) VIBRIO CHOLERAE (PCR) Not detected Not detected (test code = 60429-7) ENTEROAGGREGATIVE E. Not detected Not detected COLI (EAEC) BY PCR (test code = 52880-0) ENTEROPATHOGENIC E. COLI Not detected Not detected (EPEC) BY PCR (test code = 03103-6) ENTEROTOXIGENIC E. COLI Not detected Not detected (ETEC) LT/ST BY PCR (test code = 83646-2) SHIGA-LIKE Not detected Not detected TOXIN-PRODUCING E. COLI (STEC) STX1/STX2 (test code = 45969-9) E. COLI O157 (PCR) (test code = 81044-5) SHIGELLA/ENTEROINVASIVE Not detected Not detected E. COLI (EIEC) BY PCR (test code = 97225-1) CRYPTOSPORIDIUM (PCR) Not detected Not detected (test code = 27893-8) CYCLOSPORA CAYETANENSIS Not detected Not detected (PCR) (test code = 24232-8) ENTAMOEBA HISTOLYTICA Not detected Not detected (PCR) (test code = 45750-4) GIARDIA LAMBLIA (PCR) Not detected Not detected (test code = 21474-8) ADENOVIRUS F 40/41 (PCR) Not detected Not detected (test code = 20463-2) ASTROVIRUS (PCR) (test Not detected Not detected code = 98929-7) NOROVIRUS GI/GII (PCR) Not detected Not detected (test code = 80698-4) ROTAVIRUS A (PCR) (test Not detected Not detected code = 24272-9) SAPOVIRUS (I, II, IV, V) Not detected Not detected BY PCR (test code = 11661-0) VIBRIO Not detected Not detected (PARAHAEMOLYTICUS, VULNIFICUS) (test code = 83703-0) REJI (test code = REJI) Other viruses, parasites and bacteria not targeted by this PCR panel cannot be excluded; therefore clinical correlation and follow up of serology, culture results, and other molecular studies is required. The results are not intended to be used as the sole means for clinical diagnosis or patient management decisions. This sample was tested at the [facility] Molecular Diagnostics Laboratory using the [employer] Gastrointestinal Panel. It is FDA cleared and has been verified and approved by the [facility] Molecular Diagnostics Laboratory for clinical use. This laboratory is CLIA-certified and [employer] ([employer])-accredited to perform high complexity testing. [facility] -ID [id number] 12:43:22 Test Item Value Reference Range Interpretation Comments CAMPYLOBACTER PCR (test Not detected Not detected code = 91216-7) PLESIOMONAS SHIGELLOIDES Not detected Not detected (PCR) (test code = 27106-9) SALMONELLA (PCR) (test Not detected Not detected code = 26589-3) YERSINIA ENTEROCOLITICA Not detected Not detected (PCR) (test code = 66075-5) VIBRIO CHOLERAE (PCR) Not detected Not detected (test code = 26396-6) ENTEROAGGREGATIVE E. Not detected Not detected COLI (EAEC) BY PCR (test code = 46911-4) ENTEROPATHOGENIC E. COLI Not detected Not detected (EPEC) BY PCR (test code = 18296-8) ENTEROTOXIGENIC E. COLI Not detected Not detected (ETEC) LT/ST BY PCR (test code = 07080-2) SHIGA-LIKE Not detected Not detected TOXIN-PRODUCING E. COLI (STEC) STX1/STX2 (test code = 92151-9) E. COLI O157 (PCR) (test code = 88454-2) SHIGELLA/ENTEROINVASIVE Not detected Not detected E. COLI (EIEC) BY PCR (test code = 59226-7) CRYPTOSPORIDIUM (PCR) Not detected Not detected (test code = 55265-2) CYCLOSPORA CAYETANENSIS Not detected Not detected (PCR) (test code = 95271-7) ENTAMOEBA HISTOLYTICA Not detected Not detected (PCR) (test code = 37628-9) GIARDIA LAMBLIA (PCR) Not detected Not detected (test code = 57817-8) ADENOVIRUS F 40/41 (PCR) Not detected Not detected (test code = 29536-5) ASTROVIRUS (PCR) (test Not detected Not detected code = 83458-0) NOROVIRUS GI/GII (PCR) Not detected Not detected (test code = 58956-6) ROTAVIRUS A (PCR) (test Not detected Not detected code = 80837-7) SAPOVIRUS (I, II, IV, V) Not detected Not detected BY PCR (test code = 77893-8) VIBRIO Not detected Not detected (PARAHAEMOLYTICUS, VULNIFICUS) (test code = 27136-6) REJI (test code = REJI) Other viruses, parasites and bacteria not targeted by this PCR panel cannot be excluded; therefore clinical correlation and follow up of serology, culture results, and other molecular studies is required. The results are not intended to be used as the sole means for clinical diagnosis or patient management decisions. This sample was tested at the [facility] Molecular Diagnostics Laboratory using the [employer] Gastrointestinal Panel. It is FDA cleared and has been verified and approved by the [facility] Molecular Diagnostics Laboratory for clinical use. This laboratory is CLIA-certified and [employer] (CAP)-accredited to perform high complexity testing. [facility] BY [id number] 12:43:22 Test Item Value Reference Range Interpretation [...] Not detected BY PCR (test code = 2844722) ENTEROPATHOGENIC E. COLI (EPEC) Not detected Not detected BY PCR (test code = 8608981) ENTEROTOXIGENIC E. COLI (ETEC) Not detected Not detected LT/ST BY PCR (test code = 7637348) SHIGA-LIKE TOXIN-PRODUCING E. Not detected Not detected COLI (STEC) STX1/STX2 (test code = 9391940) E. COLI O157 (PCR) (test code = 5343581) SHIGELLA/ENTEROINVASIVE E. COLI Not detected Not detected (EIEC) BY PCR (test code = 9762489) CRYPTOSPORIDIUM (PCR) (test code Not detected Not [...] Not detected Not detected (test code = 2754380) VIBRIO (PARAHAEMOLYTICUS, Not detected Not detected VULNIFICUS) (test code = 6897864) Other viruses, parasites and bacteria not targeted by this PCR panel cannot be excluded; therefore clinical correlation and follow up of serology, culture results, and other molecular studies is required. The results are not intended to be used as the sole means for clinical diagnosis or patient management decisions. This sample was tested at the [facility] Molecular Diagnostics Laboratory using the [employer] Gastrointestinal Panel. It is FDA cleared and has been verified and approved by the [facility] Molecular Diagnostics Laboratory for clinical [...] Decreased (CELLAVISION)(BEAKER) (test code = 3438) Manager [place] ID - Phyllis comments: Slide comments:CBC W/PLT COUNT & AUTO [id number] 08:49:57 Test Item Value Reference Range Interpretation [...] (test code = 413) Vitamin B12 and [id number] 07:20:11 Test Item Value Reference Range Interpretation Comments Vitamin B12 (test 1116 pg/mL 213-816 H code = 2132-9) Folate (test code = 3.50 ng/mL See_Comment L [Automa barron 2284-8) message] The system which generated this result transmit barron reference range : >=7.00. The reference range was not used to interpret this result as normal/abnormal . REJI (test code = REJI) Manager [place] ID - SHAQUILLE M Lab Interpretation Abnormal (test code = 51295-8) [facility] and [id number] 07:20:11 Test Item Value Reference Range Interpretation Comments Vitamin B12 (test 1116 pg/mL 213-816 H code = 2132-9) Folate (test code = 3.50 ng/mL See_Comment L [Automa barron 2284-8) message] The system which generated this result transmit barron reference range : >=7.00. The reference range was not used to interpret this result as normal/abnormal . REJI (test code = REJI) Manager [place] ID - SHAQUILLE Reynolds Lab Interpretation Abnormal (test code = 44696-0) [facility] and [id number] 07:20:11 Test Item Value Reference Range Interpretation Comments Vitamin B12 (test 1116 pg/mL 213-816 H code = 2132-9) Folate (test code = 3.50 ng/mL See_Comment L [Automa barron 2284-8) message] The system which generated this result transmit barron reference range : >=7.00. The reference range was not used to interpret this result as normal/abnormal . REJI (test code = REJI) Manager [place] ID - SHAQUILLE Reynolds Lab Interpretation Abnormal (test code = 53912-6) [facility] and [id number] 07:20:11 Test Item Value Reference Range Interpretation Comments Vitamin B12 (test 1116 pg/mL 213-816 H code = 2132-9) Folate (test code = 3.50 ng/mL See_Comment L [Automa barron 2284-8) message] The system which generated this result transmit barron reference range : >=7.00. The reference range was not used to interpret this result as normal/abnormal . REJI (test code = REJI) Manager [place] ID - SHAQUILLE M Lab Interpretation Abnormal (test code = 84646-8) [facility] AND [id number] 07:20:11 Test Item Value Reference Range Interpretation Comments VITAMIN B12 (BEAKER) 1116 pg/mL 213-816 H (test code = 774) FOLATE (BEAKER) 3.50 ng/mL See_Comment L [Automated message] (test code = 362) The system which generated this result transmitted ref erence range: >=7.00. The reference range was not used to interpr et this result as normal/abnormal . Manager Land GINA CORBIN MCOMPREHENSIVE METABOLIC [id number] 06:57:06 Test Item Value Reference Range Interpretation [...] NOT APPLICABLE FOR DIALYSIS PATIEN TS. Manager Land ID - SHAQUILLE MSpecimen slightly ictericC-Reactive [id number] 06:55:26 Test Item Value Reference Range Interpretation Comments CRP (test code = 676) 4.64 mg/dL 0.00-0.50 H REJI (test code = REJI) Manager [place] GINA Reynolds Lab Interpretation (test Abnormal code = 30156-7) [facility]26 Test Item Value Reference Range Interpretation Comments PHOSPHORUS (BEAKER) (test code = 1.8 mg/dL 2.3-4.7 L 604) Manager [place] ID Ajay CORBIN MC-REACTIVE [id number] 06:55:26 Test Item Value Reference Range Interpretation Comments C-REACTIVE PROTEIN (BEAKER) (test 4.64 mg/dL 0.00-0.50 H code = 676) Manager [place] ID Ajay CORBIN [id number] 06:55:25 Test Item Value Reference Range Interpretation Comments MAGNESIUM (BEAKER) (test code = 2.3 mg/dL 1.6-2.6 627) Manager [place] ID Ajay Orozcoon, TIBC, % sat. (without ferritin)2021-09-02 06:44:00 Test Item Value Reference Range Interpretation Comments Iron (test code = 2498-4) 28.0 ug/dL 40.0-160.0 L TIBC (test code = 2500-7) 243 ug/dL 250-450 L Iron % Saturation (test 12 % 20-55 L code = 2502-3) REJI (test code = REJI) Manager [place] ID Ajay Reynolds Lab Interpretation (test Abnormal code = 20172-3) [facility], % sat[facility] (without ferritin)2021-09-02 06:44:00 Test Item Value Reference Range Interpretation Comments Iron (test code = 2498-4) 28.0 ug/dL 40.0-160.0 L TIBC (test code = 2500-7) 243 ug/dL 250-450 L Iron % Saturation (test 12 % 20-55 L code = 2502-3) REJI (test code = REJI) Manager [place] ID Ajay Reynolds Lab Interpretation (test Abnormal code = 48720-4) [facility], TIBC, % sat. (without ferritin)2021-09-02 06:44:00 Test Item Value Reference Range Interpretation Comments Iron (test code = 2498-4) 28.0 ug/dL 40.0-160.0 L TIBC (test code = 2500-7) 243 ug/dL 250-450 L Iron % Saturation (test 12 % 20-55 L code = 2502-3) REJI (test code = REJI) Manager [place] ID - SHAQUILLE Reynolds Lab Interpretation (test Abnormal code = 92353-6) [facility], % sat. (without ferritin)2021-09-02 06:44:00 Test Item Value Reference Range Interpretation Comments Iron (test code = 2498-4) 28.0 ug/dL 40.0-160.0 L TIBC (test code = 2500-7) 243 ug/dL 250-450 L Iron % Saturation (test 12 % 20-55 L code = 2502-3) REJI (test code = REJI) Manager [place] ID - SHAQUILLE M Lab Interpretation (test Abnormal code = 70239-6) [facility], % SAT. (WITHOUT FERRITIN)2021-09-02 06:44:00 Test Item Value Reference Range Interpretation Comments IRON (BEAKER) (test code = 547) 28.0 ug/dL 40.0-160.0 L TOTAL IRON BINDING CAPACITY 243 ug/dL 250-450 L (BEAKER) (test code = 769) IRON % SATURATION (2) (BEAKER) 12 % 20-55 L (test code = 2590) Manager [place] ID - SHAQUILLE MCT, BRAIN, WITHOUT [id number] 03:54:00Unlisted Reason for Exam - Click Yes and Enter Reason Below->No [facility] 1960 Sex: [...] MDReport Verified Date/Time: 09/02/2021 03:54:37 U/S, ABDOMINAL, [id number] 03:38:00 Abdomen limited area? Add comment if clarification is needed.->Right upper quadrantReason for exam:->evaluate biliary tree/liver [facility] 1960 Sex: [...] UA (test Hazy code = 5767-9) Specific [place], UA 1.029 1.001-1.035 (test code = 5811-5) pH, UA (test code = 6.0 5.0-8.0 5803-2) Protein, UA (test 30 mg/dL Negative A code = 90612-4) Glucose, UA (test Negative Negative code = 365) Ketones, UA (test Negative Negative code = 2514-8) Bilirubin, UA (test Negative Negative code = 34358-0) Blood, UA (test code Small Negative A = 99756-9) Nitrite, UA (test Negative Negative code = 5802-4) Leukocytes, UA (test Moderate Negative A code = 5799-2) Urobilinogen, UA 0.2 mg/dL 0.2-1.0 (test code = 91716-4) RBC, UA (test code = 18 See_Comment [Autom ated 63443-2) message] The system which generated this result [...] . Bacteria, UA (test Rare code = 95084-6) Mucus (test code = Moderate 8247-9) Squam Epithel, UA 2 See_Comment [Automate d (test code = 50232-0) messag e] The system which generated this result transmit barron reference range : /HPF. The reference range was not used to interpret this result as normal/abnormal . Hyaline Casts, UA 3 See_Comment [Automate d (test code = 19596-5) messag e] The system which generated this result transmit barron reference range : /LPF. The reference range was not used to interpret this result as normal/abnormal . Crystals, Urine (test None Seen code = 90710-7) Amorphous Crystals Rare (test code = 75715-9) Specimen Source (test code = 2795) REJI (test code = REJI) Manager [place] ID - [auto]Manager [place] ID - tech Lab Interpretation Abnormal (test code = 79461-8) [facility] + Reflex to Culture 2021-09-02 02:29:12 Test Item Value Reference Range Interpretation Comments Color, UA (test code Brown = 5778-6) Clarity, UA (test Hazy code = 5767-9) Specific [place], UA 1.029 1.001-1.035 (test code = 5811-5) pH, UA (test code = 6.0 5.0-8.0 5803-2) Protein, UA (test 30 mg/dL Negative A code = 42927-6) Glucose, UA (test Negative Negative code = 365) Ketones, UA (test Negative Negative code = 2514-8) Bilirubin, UA (test Negative Negative code = 43652-5) Blood, UA (test code Small Negative A = 09187-0) Nitrite, UA (test Negative Negative code = 5802-4) Leukocytes, UA (test Moderate Negative A code = 5799-2) Urobilinogen, UA 0.2 mg/dL 0.2-1.0 (test code = 67905-6) RBC, UA (test code = 18 See_Comment [Autom ated 83945-2) message] The system which generated this result [...] . Bacteria, UA (test Rare code = 10301-1) Mucus (test code = Moderate 8247-9) Squam Epithel, UA 2 See_Comment [Automate d (test code = 17715-2) messag e] The system which generated this result transmit barron reference range : /HPF. The reference range was not used to interpret this result as normal/abnormal . Hyaline Casts, UA 3 See_Comment [Automate d (test code = 03940-7) messag e] The system which generated this result transmit barron reference range : /LPF. The reference range was not used to interpret this result as normal/abnormal . Crystals, Urine (test None Seen code = 75698-6) Amorphous Crystals Rare (test code = 34984-9) Specimen Source (test code = 2795) REJI (test code = REJI) Manager [place] ID - [auto]Manager [place] ID - tech Lab Interpretation Abnormal (test code = 63189-4) [facility] + Reflex to Culture 2021-09-02 02:29:12 Test Item Value Reference Range Interpretation Comments Color, UA (test code Brown = 5778-6) Clarity, UA (test Hazy code = 5767-9) Specific [place], UA 1.029 1.001-1.035 (test code = 5811-5) pH, UA (test code = 6.0 5.0-8.0 5803-2) Protein, UA (test 30 mg/dL Negative A code = 14897-7) Glucose, UA (test Negative Negative code = 365) Ketones, UA (test Negative Negative code = 2514-8) Bilirubin, UA (test Negative Negative code = 70806-2) Blood, UA (test code Small Negative A = 78059-6) Nitrite, UA (test Negative Negative code = 5802-4) Leukocytes, UA (test Moderate Negative A code = 5799-2) Urobilinogen, UA 0.2 mg/dL 0.2-1.0 (test code = 06626-2) RBC, UA (test code = 18 See_Comment [Autom ated 05367-2) message] The system which generated this result [...] . Bacteria, UA (test Rare code = 87428-5) Mucus (test code = Moderate 8247-9) Squam Epithel, UA 2 See_Comment [Automate d (test code = 69920-0) messag e] The system which generated this result transmit barron reference range : /HPF. The reference range was not used to interpret this result as normal/abnormal . Hyaline Casts, UA 3 See_Comment [Automate d (test code = 81581-8) messag e] The system which generated this result transmit braron reference range : /LPF. The reference range was not used to interpret this result as normal/abnormal . Crystals, Urine (test None Seen code = 66174-2) Amorphous Crystals Rare (test code = 72450-6) Specimen Source (test code = 2795) REJI (test code = REJI) Manager [place] ID - [auto]Manager [place] ID - tech Lab Interpretation Abnormal (test code = 37818-2) [facility] + Reflex to Culture 2021-09-02 02:29:12 Test Item Value Reference Range Interpretation Comments Color, UA (test code Brown = 5778-6) Clarity, UA (test Hazy code = 5767-9) Specific [place], UA 1.029 1.001-1.035 (test code = 5811-5) pH, UA (test code = 6.0 5.0-8.0 5803-2) Protein, UA (test 30 mg/dL Negative A code = 89184-9) Glucose, UA (test Negative Negative code = 365) Ketones, UA (test Negative Negative code = 2514-8) Bilirubin, UA (test Negative Negative code = 56590-5) Blood, UA (test code Small Negative A = 86061-9) Nitrite, UA (test Negative Negative code = 5802-4) Leukocytes, UA (test Moderate Negative A code = 5799-2) Urobilinogen, UA 0.2 mg/dL 0.2-1.0 (test code = 49415-9) RBC, UA (test code = 18 See_Comment [Autom ated 43318-1) message] The system which generated this result [...] . Bacteria, UA (test Rare code = 01352-6) Mucus (test code = Moderate 8247-9) Squam Epithel, UA 2 See_Comment [Automate d (test code = 79668-0) messag e] The system which generated this result transmit barron reference range : /HPF. The reference range was not used to interpret this result as normal/abnormal . Hyaline Casts, UA 3 See_Comment [Automate d (test code = 30322-4) messag e] The system which generated this result transmit barron reference range : /LPF. The reference range was not used to interpret this result as normal/abnormal . Crystals, Urine (test None Seen code = 18271-1) Amorphous Crystals Rare (test code = 13135-3) Specimen Source (test code = 2795) REJI (test code = REJI) Manager [place] ID - [auto]Manager [place] ID - tech Lab Interpretation Abnormal (test code = 00642-5) [facility]FLEX URINE [id number] 02:29:12 Test Item Value Reference Range Interpretation [...] 1584) SOURCE(BEAKER) (test code = 2795) Manager [place] ID - [auto]Manager [place] ID - techRAD, CHEST, 1 VIEW, NON PEOI0990-90-16 01:45:00Reason for exam:->leukocytosis, unable to provide historyShould this be performed at the bedside?->Yes [facility] 1960 Sex: [...] 09/02/2021 01:45:23 CBC W/PLT COUNT & AUTO [id number] 00:20:23 Test Item Value Reference Range Interpretation [...] Decreased (CELLAVISION)(BEAKER) (test code = 3438) Manager [place] ID - Curtis MorenoDeepika comments: Slide comments:PT/[id number] 23:44:49 Test Item Value Reference Interpretation Comments Range Protime (test code = 22.8 See_Comment H [Autom ated 0272-2) message] The system which generated this result transmitted reference range : 11.9 - 14.2 seconds. The reference range was not used to interpret this result as normal/abnormal . INR (test code = 2.04 See_Comment [Automated 7951-6) message] The system which generated this result transmitted reference range : <=5.90. The reference range was not used to interpret this result as normal/abnormal . PTT (test code = 35.2 See_Comment [Automated 14765-5) message] The system which generated this result [...] valves. Lab Interpretation Abnormal (test code = 85674-0) [facility] HospitalPT/[id number] 23:44:49 Test Item Value Reference Interpretation Comments [...] PTT (test code = 35.2 See_Comment [Automated 55633-6) message] The system which generated this result [...] valves. Lab Interpretation Abnormal (test code = 96263-2) [facility] HospitalPT/[id number] 23:44:49 Test Item Value Reference Interpretation Comments [...] PTT (test code = 35.2 See_Comment [Automated 94688-1) message] The system which generated this result [...] valves. Lab Interpretation Abnormal (test code = 98992-9) [facility] HospitalPT/[id number] 23:44:49 Test Item Value Reference Interpretation Comments Range Protime (test code = 22.8 See_Comment H [Autom ated 5902-2) message] The system which generated this result transmitted reference range : 11.9 - 14.2 seconds. The reference range was not used to interpret this result as normal/abnormal . INR (test code = 2.04 See_Comment [Automated 3591-6) message] The system which generated this result transmitted reference range : <=5.90. The reference range was not used to interpret this result as normal/abnormal . PTT (test code = 35.2 See_Comment [Automated 12328-9) message] The system which generated this result [...] valves. Lab Interpretation Abnormal (test code = 36721-8) [facility] HospitalPT/[id number] 23:44:49 Test Item Value Reference Range Interpretation [...] for patients with mechanical heart valves.BASIC METABOLIC [id number] 23:31:12 Test Item Value Reference Range Interpretation [...] NOT APPLICABLE FOR DIALYSIS PATIEN TS. Manager [place] ID - DBSpecimen slightly wbpgvmiFYIBXNDPH3256-90-02 23:19:46 Test Item Value Reference Range Interpretation Comments MAGNESIUM (BEAKER) (test code = 1.8 mg/dL 1.6-2.6 627) Manager [place] ID - [id number] 23:19:46 Test Item Value Reference Range Interpretation Comments PHOSPHORUS (BEAKER) (test code = 1.9 mg/dL 2.3-4.7 L 604) Manager [place] ID - DBHEPATIC FUNCTION [id number] 23:19:46 Test Item Value Reference Range Interpretation [...] code = 14 U/L 6-55 347) Manager [place] ID - DBSpecimen slightly ictericLactic acid, oitonh2601-74-59 23:13:03 Test Item Value Reference Range Interpretation Comments Lactate, Venous (test 2.88 mmol/L 0.50-2.20 H code = 2872) REJI (test code = REJI) Manager [place] ID - DBSpecimen slightly icteric Lab Interpretation (test Abnormal code = 01120-8) [facility] HospitalLactic acid, wrguha4438-15-01 23:13:03 Test Item Value Reference Range Interpretation Comments Lactate, Venous (test 2.88 mmol/L 0.50-2.20 H code = 2872) REJI (test code = REJI) Manager [place] ID - DBSpecimen slightly icteric Lab Interpretation (test Abnormal code = 45679-4) [facility] HospitalL[facility] acid, revutt5821-10-61 23:13:03 Test Item Value Reference Range Interpretation Comments Lactate, Venous (test 2.88 mmol/L 0.50-2.20 H code = 2872) REJI (test code = REJI) Manager [place] ID - DBSpecimen slightly icteric Lab Interpretation (test Abnormal code = 40239-5) [facility] HospitalL[facility] acid, [id number] 23:13:03 Test Item Value Reference Range Interpretation Comments Lactate, Venous (test 2.88 mmol/L 0.50-2.20 H code = 2872) REJI (test code = REJI) Manager [place] ID - DBSpecimen slightly icteric Lab Interpretation (test Abnormal code = 51658-3) [facility] HospitalLACTIC ACID, [id number] 23:13:03 Test Item Value Reference Range Interpretation Comments LACTATE BLOOD VENOUS (2) (BEAKER) 2.88 mmol/L 0.50-2.20 H (test code = 2872) Manager [place] ID - DBSpecimen slightly ictericPOC-Glucose [id number] 22:47:30 Test Item Value Reference Range Interpretation Comments POC-Glucose Meter (test 106 mg/dL 70-110 : TE STED AT [facility] code = 1538) [address] [place] [address], 770 30: Manager [place]/Techni sowmya ID = [id number] for ULLATTIL, TAYA K Lab Interpretation (test Normal code = 36840-9) [facility]-Glucose [id number] 22:47:30 Test Item Value Reference Range Interpretation Comments POC-Glucose Meter (test 106 mg/dL 70-110 : TE STED AT [facility] code = 1538) [address] [place] [address], 7[address] 30: Manager [place]/Techni sowmya ID = [id number] for ULLATTIL, TAYA K Lab Interpretation (test Normal code = 90040-8) [facility]-Glucose sejuk3682-01-35 22:47:30 Test Item Value Reference Range Interpretation Comments POC-Glucose Meter (test 106 mg/dL 70-110 : TE STED AT [facility] code = 1538) [address] [place] [address], 770 30: Manager [place]/Techni sowmya ID = [id number] for ULLATTIL, TAYA K Lab Interpretation (test Normal code = 01982-9) [facility]-Glucose altvi1107-59-58 22:47:30 Test Item Value Reference Range Interpretation Comments POC-Glucose Meter (test 106 mg/dL 70-110 : TE STED AT [facility] code = 1538) [address] [place] [address], [address] 30: Manager [place]/Techni sowmya ID = [id number] for ULLATTIL, TAYA K Lab Interpretation (test Normal code = 76583-4) [facility]-GLUCOSE [id number] 22:47:30 Test Item Value Reference Range Interpretation Comments POC-GLUCOSE METER 106 mg/dL 70-110 : TESTED A T [facility] 6720 (BEAKER) (test code = [facility], 1538) [address]: Manager [place]/Techni sowmya ID = [id number] for UL LATTIL, WALE C1Q class 1 & 2 xmzsqktz9797-56-05 17:38:21 Test Item Value Reference Range Interpretation Comments Interpretation (test code ADDITIONAL ANTIBODY = 1030049) INFORMATION:DQ7 = DQB1*03:01; DQA1*05:03DQ7 = DQB1*03:19; DQA1*05:05DQ7 = DQB1*03:01; DQA1*06:01DQ9 = DQB1*03:03; DQA1*02:01DQ9 = DQB1*03:03; DQA1*03:02DQ8 = DQB1*03:02; DQA1*03:01DQ8 = DQB1*03:02; DQA1*03:02 Case number (test code = [id number]) C1Q class 1 & 2 antibody See link below for (test code = 2258401) PDF Lab Report [facility], [facility] lung [facility], [facility]/[id number] 19:27:26 Test Item Value Reference Range Interpretation [...] Predicted (test code = 67.9 % 5368) [facility]2022-01-14 13:53:30 Test Item Value Reference Range Interpretation Comments POC glucose (test code = 124 mg/dL 65-99 H Ope rator Name: [id number]) Clint Bustamante RDevice ID: [id number] able : [facility] 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 welding foreman Interpretation (test Abnormal code = 18098-8) [facility] antigen [id number] 11:33:46 Test Item Value Reference Range Interpretation Comments SAB interpretation (test Additional Antibody code = 5950) Information:DQ2=DQB1 *02:01/DQA1*04:01, DQB1*02:01/DQA1*05:0 2IA1=LAM5*04:02/DQA1 *04:59VQ2=JMZ1*03:01 /DPA1*01:03, DPB1*03:01/DPA1*02:0 2AE2=ANH7*04:02/DPA1 *01:06WD74=RBZ8*28:0 1/DPA1*01:03 SAB serum ID (test code = [id number] 5866) SAB serum collection D&T 08/23/2021 05:49 AM (test code = 5867) SAB class I antibody A11,A74,A32,A3,A31,A assignment (test code = 30,A36,A1,A29,A66,A8 5870) 0,A26,A25,A43,A34,A3 3,B82 SAB cPRA class I (test code = 5868) SAB class II antibody DR18,DR17,DR13,DR14, assignment (test code = DR52,DR11,DR8,DQ7,DR 5871) 12,DQ9,DR9,DR7,DQ8,D Q2,DR4,DQ4,DP2,DP14, DP4,DP9,DP10,DP18,DP 20,DP17,DP3,DP28 SAB cPRA class II (test code = 5869) Case number (test code = [id number]) Single antigen beads See link below for (test code = 4604) PDF [facility], [id number] 20:20:55 Test Item Value Reference Range Interpretation Comments Collection start date, urine (test 08/23/21 code = 50725-0) Collection start time, urine (test 8:40 code = 18983-8) Collection stop date, urine (test 08/24/21 code = 17847-1) Collection stop time, urine (test 8:40 code = 89791-4) Hours of collection (test code = 02574-5) Total volume, urine (test code = 800 mL 28943-7) Urine protein concentration (test 7 mg/dL code = 01982-4) Urine protein excretion (test code = mg/vol 2448) Jory BeckCreatinine level, urine, [id number] 20:20:52 Test Item Value Reference Range Interpretation Comments Collection start date, urine (test 08/23/21 code = 09350-4) Collection start time, urine (test 8:40 code = 50210-7) Collection stop date, urine (test 08/24/21 code = 63800-1) Collection stop time, urine (test 8:40 code = 94458-7) Hours of collection (test code = 72561-3) Total volume, urine (test code = 800 mL 93768-7) Urine creatinine concentration 114 mg/dL (test code = 14288-8) Urine creatinine excretion (test mg/vol code = 16458-7) Jory OnealARS-CoV-2 (COVID-19) RNA [Presence] in Respiratory specimen by GUSTAVO with probe noqltkrks5004-06-87 20:48:05 Test Item Value Reference Range Interpretation Comments SARS-CoV-2 (COVID-19) RNA Not detected Not-Detected [Presence] in Respiratory specimen by GUSTAVO with probe detection (test code = 72548-0) 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 (test code = 87501-8) Whether the patient has symptoms related to condition of interest (test code = 61927-6) Patient was hospitalized because of this condition (test code = 88384-6) Whether the patient was admitted to intensive care unit (ICU) for condition of interest (test code = 66461-0) Whether patient resides in a congregate care setting (test code = 65472-8) PHI MULLIGAN 12 [id number] 15:33:38 Test Item Value Reference Range Interpretation Comments Ventricular rate (test code = 253) Atrial rate (test code = 255) DC interval (test code = 266) QRSD interval [...] out Inferior infarct , age undetermined-Abnormal ECG- [facility] transplant yzhawuizcs0105-77-75 14:27:40 Test Item Value Reference Range Interpretation Comments HLA transplant evaluation See link below for (test code = 32136-3) PDF Lab Report Case number (test code = [id number]) [facility] ED Preliminary Interpretation - Not an [id number] 02:54:33 Test Item Value Reference Range Interpretation Comments REJI (test code = REJI) Orlando Balderrama MD 08/17/2021 10:33 [facility] Preliminary Interpretation - Not an OrderPerformed by: Orlando Balderrama MDAuthorized by: Orlando Balderrama MD ECG reviewed by ED Physician in the absence of a help desk support: yes Interpretation: Interpretation: abnormal Rate: ECG rate: 80 ECG rate assessment: normal Rhythm: Rhythm: sinus rhythm QRS: QRS axis: Normal QRS intervals: NormalST segments: ST segments: NormalOther findings: Other findings: prolonged qTc interval Lab Interpretation Abnormal (test code = 78336-8) [facility] RNA [Presence] in Respiratory specimen by GUSTAVO with probe [id number] 23:59:30 Test Item Value Reference Range Interpretation Comments SARS-CoV-2 (COVID-19) RNA Not detected Not-Detected [Presence] in Respiratory specimen by GUSTAVO with probe detection (test code = 37207-6) 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 (test code = 61436-1) Whether the patient has symptoms related to condition of interest (test code = 31407-1) Patient was hospitalized because of this condition (test code = 32500-2) Whether the patient was admitted to intensive care unit (ICU) for condition of interest (test code = 13431-4) Whether patient resides in a congregate care setting (test code = 90678-7) status (test code = 64870-4) PHI MICHAELSARS-CoV-2 (COVID-19) RNA [Presence] in Respiratory specimen by GUSTAVO with probe [id number] 14:46:31 Test Item Value Reference Range Interpretation Comments SARS-CoV-2 (COVID-19) RNA Not detected Not-Detected [Presence] in Respiratory specimen by GUSTAVO with probe detection (test code = 67798-4) 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 (test code = 04703-1) Whether the patient has symptoms related to condition of interest (test code = 78017-1) Patient was hospitalized because of this condition (test code = 35494-4) Whether the patient was admitted to intensive care unit (ICU) for condition of interest (test code = 09052-3) Whether patient resides in a congregate care setting (test code = 79241-9) status (test code = 94402-0) YIP JORY MICHAELSARS-CoV-2 (COVID-19) RNA [Presence] in Respiratory specimen by GUSTAVO with probe [id number] 19:52:10 Test Item Value Reference Range Interpretation Comments SARS-CoV-2 (COVID-19) RNA Not detected Not-Detected [Presence] in Respiratory specimen by GUSTAVO with probe detection (test code = 08226-4) 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 (test code = 64782-7) Whether the patient has symptoms related to condition of interest (test code = 16622-2) Patient was hospitalized because of this condition (test code = 16712-0) Whether the patient was admitted to intensive care unit (ICU) for condition of interest (test code = 56646-7) Whether patient resides in a congregate care setting (test code = 00356-0) status (test code = 39940-3) PHI MICHAELSARS-CoV-2 (COVID-19) RNA [Presence] in Respiratory specimen by GUSTAVO with probe xeuqbcekk4659-89-68 19:31:11 Test Item Value Reference Range Interpretation Comments SARS-CoV-2 (COVID-19) RNA Not detected Not-Detected [Presence] in Respiratory specimen by GUSTAVO with probe detection (test code = 18709-3) 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 (test code = 48797-5) Whether the patient has symptoms related to condition of interest (test code = 31268-3) Patient was hospitalized because of this condition (test code = 28965-6) Whether the patient was admitted to intensive care unit (ICU) for condition of interest (test code = 72897-4) Whether patient resides in a congregate care setting (test code = 80581-0) status (test code = 57828-2) PHI CORLEY VEXJSWSN-YnR-3 (COVID-19) RNA [Presence] in Respiratory specimen by GUSTAVO with probe [id number] 02:26:38 Test Item Value Reference Range Interpretation Comments SARS-CoV-2 (COVID-19) RNA Not detected Not-Detected [Presence] in Respiratory specimen by GUSTAVO with probe detection (test code = 95110-2) PHI CORLEY YCMNKPHE-JkH-3 (COVID-19) RNA [Presence] in Respiratory specimen by GUSTAVO with probe [id number] 21:10:32 Test Item Value Reference Range Interpretation Comments SARS-CoV-2 (COVID-19) RNA Not detected Not-Detected [Presence] in Respiratory specimen by GUSTAVO with probe detection (test code = 81125-3) PHI COR[facility] ZADDLMRE-QbU-6 (COVID-19) RNA [Presence] in Respiratory specimen by GUSTAVO with probe [id number] 19:03:37 Test Item Value Reference Range Interpretation Comments SARS-CoV-2 (COVID-19) RNA Not detected Not-Detected [Presence] in Respiratory specimen by GUSTAVO with probe detection (test code = 50563-1) PHI CORLEY SWIVWVIB-JkU-0 (COVID-19) RNA [Presence] in Respiratory specimen by GUSTAVO with probe [id number] 05:36:17 Test Item Value Reference Range Interpretation Comments SARS-CoV-2 (COVID-19) RNA Not detected Not-Detected [Presence] in Respiratory specimen by GUSTAVO with probe detection (test code = 96496-0) PHI MICHAELSARS-CoV-2 (COVID-19) IgG+IgM Ab [Presence] in Serum or Plasma by [id number] 09:52:00 Test Item Value Reference Range Interpretation Comments SARS-CoV-2 (COVID-19) IgG+IgM Ab Not detected [Presence] in Serum or Plasma by Immunoassay (test code = 47334-9) PHI CORLEY BJNIFTDE-BwK-8 (COVID-19) RNA [Presence] in Respiratory specimen by GUSTAVO with probe [id number] 04:46:40 Test Item Value Reference Range Interpretation Comments SARS-CoV-2 (COVID-19) RNA [Presence] Detected Not-Detected in Respiratory specimen by GUSTAVO with probe detection (test code = 02148-0) PHI CORLEY UDMHBTRL-CoB-4 (COVID-19) RNA [Presence] in Respiratory specimen by GUSTAVO with probe [id number] 00:55:48 Test Item Value Reference Range Interpretation Comments SARS-CoV-2 (COVID-19) RNA Not detected Not-Detected [Presence] in Respiratory specimen by GUSTAVO with probe detection (test code = 53987-2) PHI CORLEY SYIPYQKC-UlE-1 (COVID-19) RNA [Presence] in Respiratory specimen by GUSTAVO with probe [id number] 08:17:26 Test Item Value Reference Range Interpretation Comments SARS-CoV-2 (COVID-19) RNA Not detected Not-Detected [Presence] in Respiratory specimen by GUSTAVO with probe detection (test code = 62677-4) PHI COR[facility] GRMIDHLN-VfO-3 (COVID-19) RNA [Presence] in Respiratory specimen by GUSTAVO with probe [id number] 00:04:18 Test Item Value Reference Range Interpretation Comments SARS-CoV-2 (COVID-19) RNA Not detected Not-Detected [Presence] in Respiratory specimen by GUSTAVO with probe detection (test code = 68212-2) YIP LATTER-DAY HFRFJNIG-NjD-0 (COVID-19) RNA [Presence] in Respiratory specimen by GUSTAVO with probe [id number] 04:41:17 Test Item Value Reference Range Interpretation Comments SARS-CoV-2 (COVID-19) RNA Not detected Not-Detected [Presence] in Respiratory specimen by GUSTAVO with probe detection (test code = 02356-7) PHI GONZALEZIST TDPGXJAF-PzE-7 (COVID-19) RNA [Presence] in Respiratory specimen by GUSTAVO with probe [id number] 04:13:39 Test Item Value Reference Range Interpretation Comments SARS-CoV-2 (COVID-19) RNA Not detected Not-Detected [Presence] in Respiratory specimen by GUSTAVO with probe detection (test code = 96841-9) PHI MICHAEL
--- NOTE | 2023-04-05 18:24 | RAD REPORT ---
EXAM DESCRIPTION: RAD - Humerus Right - 04/05/2023 6:11 pm CLINICAL HISTORY: Right humeral fracture FINDINGS: Mild interval healing since March 22 of humeral head fracture. It is mildly displaced.
[2023-04-05] MEDS ORDERED: HYDROCODONE/APAP 10/325 TAB ONE (18:42)
--- NOTE | 2023-04-05 18:42 | ER ---
Nurse's Notes [facility] Name: Bella Barron Age: 62 yrs Sex: Female : 1960 Arrival Date: 04/05/2023 Time: 17:26 Bed 11 Private MD: Diagnosis: Fracture of greater tuberosity of humerus-sequela, mildly displaced Presentation: 04/05 17:34 Chief complaint: Patient states: she fractured her right shoulder 2 weeks ago and is cm10 back because ortho told her to come back to the ED for worsening pain. Pt states that she is not wearing her sling anymore "because it annoys me.". Coronavirus screen: Vaccine status: Patient reports receiving the 2nd dose of the covid vaccine. Ebola Screen: Patient denies travel to an Ebola-affected area in the 21 days before illness onset. No symptoms or risks identified at this time. Initial Sepsis Screen: Does the patient meet any 2 criteria? HR > 90 bpm. Does the patient have a suspected source of infection? No. Patient's initial sepsis screen is negative. Risk Assessment: Do you want to hurt yourself or someone else? Patient reports no desire to harm self or others. Onset of symptoms was April 05, 2023. 17:34 Method Of Arrival: Ambulatory cm10 17:34 Acuity: OLEG 4 cm10 Triage Assessment: 17:36 General: Appears in no apparent distress. uncomfortable, Behavior is. Pain: Complains cm10 of pain in anterior aspect of right shoulder and posterior aspect of right shoulder. Neuro: No deficits noted. Level of Consciousness is awake, alert, obeys commands, Oriented to person, place, time, situation. Respiratory: No deficits noted. Airway is patent Respiratory effort is even, unlabored, Respiratory pattern is regular, symmetrical. Historical: - Allergies: 17:36 ceftriaxone; cm10 17:36 Ciprofloxacin; cm10 17:36 EGG/POULTRY; cm10 17:36 Iodine; cm10 17:36 LACTASE; cm10 17:36 Promethazine; cm10 - PMHx: 17:36 cirrhosis of liver; Crohn's Disease; hypotension; kidney disease; Liver transplant (Jul); trach removed Jun 2022; - PSHx: 17:36 bowel resection; Cholecystectomy; Colectomy; cm10 - Immunization history:: Adult Immunizations unknown. - Social history:: Smoking status: Patient reports the use of cigarette tobacco products, smokes one pack cigarettes per day. Screenin:00 [facility] ED Fall Risk Assessment (Adult) History of falling in the last 3 months, kl including since admission No falls in past 3 months (0 pts) Confusion or Disorientation No (0 pts) Intoxicated or Sedated No (0 pts) Impaired Gait No (0 pts) Mobility Assist Device Used No (0 pt) Altered Elimination No (0 pt) Score/Fall Risk Level 0 - 2 = Low Risk Oriented to surroundings, Maintained a safe environment. Abuse screen: Denies threats or abuse. Nutritional screening: No deficits noted. Tuberculosis screening: No symptoms or risk factors identified. Assessment: 19:00 Reassessment: Patient appears in no apparent distress at this time. General: Appears kl Behavior is calm, cooperative. Pain: Complains of pain in right shoulder. Vital Signs: 17:34 BP 131 / 70; Pulse 99; Resp 18; Temp 97.7; Pulse Ox 97% ; Weight 70.31 kg; Height 4 ft. cm10 11 in. ; Pain 8/10; 17:34 Body Mass Index 31.31 (70.31 kg, 149.86 cm) cm10 17:34 Pain Scale: Adult cm10 ED Course: 17:29 Patient arrived in ED. mr 17:32 Flaquita Soares PA-C is PHCP. sb4 17:32 Beau Encarnacion MD is Attending Physician. sb4 17:36 Triage completed. cm10 17:36 Arm band placed on Patient placed in waiting room. cm10 18:13 Humerus Right XRAY In Process Unspecified. EDMS 18:40 Jeremy Sierra MD is Referral Physician. sb4 19:00 No provider procedures requiring assistance completed. Patient did not have IV access kl during this emergency room visit. Administered Medications: 18:36 Drug: [place] PO 10 mg-325 mg 1 tabs Route: PO; hb 18:51 Follow up: Response: Medication administered at discharge. hb Outcome: 18:41 Discharge ordered by . sb4 19:00 Discharged to home ambulatory, with family. kl 19:00 Discharge instructions given to patient, Instructed on discharge instructions, follow up and referral plans. medication usage, Demonstrated understanding of instructions, follow-up care, medications, Prescriptions given X 1. 19:01 Patient left the ED. Signatures: Dispatcher [employer] Selma Leiva, RN RN shiraz Lopez, Mary Ann Gwendolyn Bates, RN RN Flaquita Hebert, BRIANDA carter4 Zoraida Uribe RN RN cm10
--- NOTE | 2023-04-05 18:42 | EDPHYS ---
Physician Documentation [facility] Name: Bella Barron Age: 62 yrs Sex: Female : 1960 Arrival Date: 04/05/2023 Time: 17:26 Bed 11 Private MD: ED Physician Beau Encarnacion HPI: 04/05 17:39 This 62 yrs old Female presents to ER via Ambulatory with complaints of Shoulder Pain. sb4 17:39 The patient or guardian complains of decreased range of motion, an injury, running out sb4 of pain medications, pain, that is acute. right shoulder. Context: The patient experiences decreased range of motion, when attempts to raise arm, The patient reports no obvious deformity. Onset: The symptoms/episode began/occurred 2 week(s) ago. Modifying factors: the symptoms are alleviated by remaining still, shoulder immobilizer, The symptoms are aggravated by movement, rotation of arm. Associated signs and symptoms: The patient has no apparent associated signs or symptoms. The patient has experienced a previous episode. patient sustained a humerus fracture a few weeks ago. she was told to keep her arm in a sling, given pain medications, and ortho follow up. she thought the fracture was better and stopped wearing the sling and now is complaining of severe pain, concerned that it is refractured and/or dislocated. she is also out of her pain medications. she had an appointment with ortho this week but did not go because she had other appointments. Historical: - Allergies: 17:36 ceftriaxone; cm10 17:36 Ciprofloxacin; cm10 17:36 EGG/POULTRY; cm10 17:36 Iodine; cm10 17:36 LACTASE; cm10 17:36 Promethazine; cm10 - PMHx: 17:36 cirrhosis of liver; Crohn's Disease; hypotension; kidney disease; Liver transplant (Jul); trach removed Jun 2022; - PSHx: 17:36 bowel resection; Cholecystectomy; Colectomy; cm10 - Immunization history:: Adult Immunizations unknown. - Social history:: Smoking status: Patient reports the use of cigarette tobacco products, smokes one pack cigarettes per day. ROS: 18:14 Constitutional: Negative for fever, chills, and weight loss. sb4 18:14 MS/extremity: Positive for injury or acute deformity, decreased range of motion, pain, of the right shoulder. 18:14 All other systems are negative. sb4 Exam: 18:14 Eyes: Extra-ocular motions intact. Periorbital areas with no swelling, redness, or sb4 edema. ENT: Mucous membranes moist. 18:14 Constitutional: The patient appears alert, awake, in obvious pain, uncomfortable, crying 18:14 Musculoskeletal/extremity: ROM: limited active range of motion due to pain, limited passive range of motion due to pain, Circulation is intact in all extremities. Pulses: are normal with no appreciated deficits, Sensation intact. Vital Signs: 17:34 BP 131 / 70; Pulse 99; Resp 18; Temp 97.7; Pulse Ox 97% ; Weight 70.31 kg; Height 4 ft. cm10 11 in. ; Pain 8/10; 17:34 Body Mass Index 31.31 (70.31 kg, 149.86 cm) cm10 17:34 Pain Scale: Adult cm10 MDM: 17:39 Patient medically screened. sb4 18:14 Differential diagnosis: Anterior dislocation with fracture, Anterior dislocation sb4 without fracture, Posterior dislocation with fracture, Posterior dislocation without fracture, humeral head fracture, glenoid fracture. 18:38 Data reviewed: vital signs, nurses notes, radiologic studies, I have discussed the sb4 patient's presentation/case with the attending Emergency Department Physician; and as a result, I will discharge patient. Independent interpretation of the following test(s) in the Emergency Department X-Ray: My interpretation is my interpretation of the shoulder xray images are mildly displaced humerus. Historians other than the Patient: Spouse/Significant Other: . Care significantly affected by the following chronic conditions: Obesity, Chronic Kidney Disease, Liver Disease. Counseling: I had a detailed discussion with the patient and/or guardian regarding the historical points, exam findings, and any diagnostic results supporting the discharge/admit diagnosis, radiology results, the need for outpatient follow up, a orthopedic surgeon. Special discussion: Based on the history and exam findings, there is no indication for further emergent testing or inpatient evaluation. I discussed with the patient/guardian the need to see the orthopedic surgeon for further evaluation of the symptoms. ED course: emphasized the importance of wearing the shoulder immobilizer and following up with ortho. 04/05 17:38 Order name: Humerus Right XRAY; Complete Time: 18:27 sb4 04/05 18:37 Order name: Shoulder Immobilizer sb4 Administered Medications: 18:36 Drug: [place] PO 10 mg-325 mg 1 tabs Route: PO; 18:51 Follow up: Response: Medication administered at discharge. Disposition: 20:21 Co-signature as Attending Physician, Beau Encarnacion MD I reviewed the patient's care rn provided by the Advanced Practice Provider and agree with the diagnosis and treatment plan. Disposition Summary: 04/05/23 18:41 Discharge Ordered Location: Home sb4 Problem: an ongoing problem sb4 Symptoms: have improved sb4 Condition: Stable sb4 Diagnosis - Fracture of greater tuberosity of humerus - sequela, mildly displaced sb4 Followup: sb4 - With: Jeremy Sierra MD - When: 2 - 3 days - Reason: Further diagnostic work-up, Recheck today's complaints, Re-evaluation by your physician Discharge Instructions: - Discharge Summary Sheet sb4 - How to Use a Shoulder Immobilizer sb4 - Shoulder Pain sb4 Forms: - Medication Reconciliation Form sb4 - Thank You Letter sb4 - Antibiotic Education sb4 - Prescription Opioid Use sb4 - Patient Portal Instructions sb4 - Leadership Thank You Letter sb4 Prescriptions: - Tramadol 50 mg Oral Tablet - take 1 tablet by ORAL route every 8 hours as needed; 15 tablet; Refills: 0, sb4 Product Selection Permitted Signatures: Dispatcher [employer] EDMS Beau Encarnacion MD MD rn Baxter, Heather, RN RN Flaquita Hebert, PA-C PA-Zoe sb4 Zoraida Uribe RN RN cm10 Corrections: (The following items were deleted from the chart) 18:13 17:39 Shoulder Right 2 View+RAD.RAD.BRZ ordered. [facility] EDME 18:38 17:39 patient sustained a humerus fracture a few weeks ago. she was told to keep her sb4 arm in a should immobilizer, given pain medications, and ortho follow up. she thought the fracture was better and stopped wearing the immobilizer and now is complaining of severe pain, concerned that it is refractured and/or dislocated. sb4
[2023-04-05 19:07] VITALS: BP 131/70
[2023-04-05 19:17] VITALS: TEMP 97.9; O2SAT 100
== END 2023-04-05 19:01 | disposition home or self-care (01) ==
LOC: ER 17:26
DX: S42.251S Displaced fracture of greater tuberosity of right humerus, sequela (principal)
CPT/HCPCS: 99283

== ENCOUNTER 2023-06-23 00:59 | Emergency (ER) | payer OTHER ==
--- OUTSIDE RECORDS SUMMARY | 2023-06-23 01:14 | XMS REPORT | Continuity of Care Document ---
:1960 Author Organization [facility] t Address [address] [place] [address] Care Team Providers Name Role Phone Jose Calos Bustamante Primary Care Physician [phone] Fernando Man Attending Clinician Unavailable ERENDIRA OJEDA Attending Clinician Unavailable DELANEY ERAZO Attending Clinician Unavailable MD CARIN DURAND Attending Clinician Unavailable PEDRO BRIDGES Attending Clinician Unavailable CALOS GARCIA Attending Clinician Unavailable RIANA MARTELL Attending Clinician Unavailable IVIS GARVEY Attending Clinician Unavailable RAY LACY Attending Clinician Unavailable MD DIANA BANGURA Attending Clinician Unavailable DO ROMERO LIMON Attending [...] SALLY AGUDELO Attending Clinician Unavailable Doctor Unassigned, [place] Attending Clinician Unavailable Dashawn FRANKLIN, Mercy Robison Attending Clinician Cam LAMAR, Libby Attending Clinician LIBBY LEVY Attending Clinician Unavailable Rafael FRANKLIN, Kendy Dalal Attending Clinician [phone] KENDY HALL Attending Clinician Unavailable Silvio FRANKLIN, Dawna Attending Clinician Isabella FRANKLIN, Zara Stevenson Attending Clinician [phone] Vj FRANKLIN, Shiela Man Attending Clinician Aly FRANKLIN, Selma Bernard Attending Clinician Kyle FRANKLIN, Nia Delaney Attending Clinician Jn Cleveland RN Attending Clinician Unavailable MOISES BRO Attending Clinician Unavailable Tomy FRANKLIN, Sawyer Attending Clinician Kirit Jaimes LCSW Attending Clinician Unavailable Sergo Lee RN Attending Clinician Unavailable MD JENNIFER GHOSH Attending Clinician Unavailable MD MOISES BRO Attending Clinician Unavail able Erika Brown MA Attending Clinician Unavailable DO ROMERO LIMON Attending Clinician Unavailable John PhD, Kaleb Turner Attending Clinician Unavailable Eusebia Williamson MA Attending Clinician Unavailable MD BAYLEE GIRARD Attending Clinician Unavail able Bia Tee RN Attending Clinician Unavailable Wild Kovacs DO Attending Clinician Cliff Levy MD Attending Clinician MD CALOS GARCIA Attending Clinician Unavailable Freedom Gutierrez DO Attending Clinician Robby Perez MD Attending Clinician [phone] MD HERIBERTO YORK Attending Clinician Unavailable MD PIERCE MARSHALL Attending Clinician Unavailable NOBLE ALMEIDA Attending Clinician Unavailable YIFAN CUMMINS Attending Clinician Unavailable MERCY RUEDA Attending Clinician Unavailable MD HERMILO CHAMPION Attending Clinician Unavailable JUNO DIAL Attending Clinician Unavailable DO MERCY RUEDA Attending Clinician Unavailable EBONY ROPER Attending Clinician Unavailable RA RHODES Attending Clinician Unavailable Lita Fuchs S Attending Clinician LITA CORRIGAN Attending Clinician Unavailable YOVANY TAVERAS Attending Clinician Unavailable Anabell Ma RN Attending Clinician Akanksha Jensen MD Attending Clinician Indra Motta MD Attending Clinician Lizy Taylor MD Attending Clinician CARIN DURAND Admitting Clinician Unavailable RIANA MARTELL Admitting Clinician Unavailable MD DIANA [...] Clinician Unavailable YOVANY TAVERAS Admitting Clinician Unavailable Kalia FRANKLIN, Indra Ruiz Admitting Clinician Payers Payer Name Policy Type Policy Number Effective Date Expiration Date Faustino vasquez MEDICARE A B [id number] 2015 00:00:00 GENERIC MEDICAID [id number] 2021 HMO 00:00:00 WELLMED/UHC DUAL [id number] 2022 COMP HMO D SNP 00:00:00 LEACH [id number] 2022 HEALTHCARE STAR 00:00:00 PLUS MEDICARE PART A [id number] 2015 \\T\\ B 00:00:00 MEDICAID [place] [id number] 2018 [place] 00:00:00 [facility] [id number] Common [facility] MEDICARE NOVITAS [id number] 2015 Common 00:00:00 [facility] [id number] Common [facility] MEDICARE NOVITAS [id number] 2015 Common 00:00:00 [facility] MEDICARE NOVITAS [id number] 2015 Common 00:00:00 [facility] [id number] [facility] MEDICARE NOVITAS [id number] 2015 Common 00:00:00 [facility] [id number] [facility] [id number] [facility] MEDICARE NOVITAS [id number] 2015 Common 00:00:00 [facility] [id number] Common Spirit [facility] MEDICARE NOVITAS [id number] 2015 Common 00:00:00 [facility] MEDICARE NOVITAS [id number] 2015 Common 00:00:00 [facility] [id number] Common [facility] MEDICARE NOVITAS [id number] 2015 Common 00:00:00 [facility] [id number] Common [facility] MEDICARE NOVITAS [id number] 2015 Common 00:00:00 [facility] [id number] [facility] Problems Condition Condition Condition Status Onset Resolution Last Treating Co mments Source Name Details Category Date Date Treatment Clinician Date Altered Altered Disease Active [facility] 09[facility]02 [facility] status status [facility]:00: Medical 00 Center SBP SBP Disease Active Methodi (spontaneo (spontaneo 1 st us 00:00: Hospita bacterial bacterial 00 [...] Added automatic ally from request for surgery [id number] Chronic Chronic Disease Active 2020-08 Methodi kidney [...] l Lymphedema Lymphedema Disease Active M ethodi 9- st 00:00: Hospita 00 l Tremor of Tremor of Disease Active Met hodi unknown unknown 8-06 st origin origin 00:00: Hospita 00 l Weakness Weakness Disease Active 0 Metho di generalize generalize 608 st d d 00:00: Hospita 00 l Confusion Confusion Disease Active 2019-[address] 00:00: Hospita 00 [...] nivers ia ia 03-06 ity of 00:00: [place] [address] Medical Branch Abdominal Abdominal Disease Active Met hodi pain pain 11-12 st 00:00: Hospita 00 l Weakness Weakness Disease Active Metho di 08-20 st 00:00: Hospita 00 l Chest pain Chest pain Disease Active 2018-0 M ethodi on on 08-20 breathing breathing [...] liver 08-20 st 00:00: Hospita 00 l Acute Acute Disease Active Methodi hepatic hepatic 224 st encephalop encephalop 00:00: Ho spita athy athy 00 l Hematochez Hematochez Disease Active 2017 M ethodi ia ia 12-11 st 00:00: Hospita 00 l Melena Melena Disease Active Overview: Method i 12-[address] 00:00: g of this Hospita 00 note l might be different from the original. Added automatic ally from request for surgery [id number] Persistent Persistent Disease Active M ethodi depressive depressive 10-09 st disorder disorder 00:00: Hospit a 00 l 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 2-02 it y of athy athy 00:00: [place] [facility] Hepatic Hepatic Disease Active 2015-08 Methodi encephalop encephalop 1-15 st athy athy 00:00: Hospita 00 l Thrombocyt Thrombocyt Disease Active M ethodi openia openia 05-04 00:00: Hospita 00 l Malnutriti Malnutriti Disease Active M ethodi on on 05-04 00:00: Hospita 00 l Right Right Disease Active Univers shoulder shoulder 4-25 ity of pain pain 00:00: [place] [facility] Anxiety Anxiety Disease Active Univers and and 4-22 ity of depression depression 00:[place]: [place] [facility] Rectal Rectal Disease Active 2014-08 Univers bleed bleed 2-03 ity of 00:00: [place] [facility] [place] Body mass BMI Problem Common index 40+ 40.0-44.9, Spi rit - morbidly adult - CHI obese [facility] Allergic Seasonal Problem Commo n rhinitis and Spirit perennial - CHI allergic [facility] Irritable Irritable Problem Com mon bowel bowel Spirit syndrome syndrome - CHI without [facility] [id number] Adult BMI Problem Com mon 35.0-35.9 Spirit kg/sq m - [facility] [id number] Insomnia, Problem Com mon unspecifie Spirit d type - [facility] Migraine Migraine Problem Commo n Spirit - [facility] Gout Gout Problem Common Spirit - [facility] Cirrhosis Cirrhosis Disease Recurre CH I [facility] Crohn Crohn Disease Recurre CHI St disease disease [facility] [id number] Secondary Problem Comm on esophageal Spirit varices - CHI without [facility] [id number] Portal Problem Common hypertensi Spirit on - [facility] [id number] 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 Spirit lar - CHI intrahepat [facility] portosyste Medica l jacqueline shunt) [place] [id number] MCFARLANE Problem Common (nonalcoho Spirit lic - [facility] steatohepa [facility]) [facility] [id number] End stage Problem Com mon liver Spirit disease [facility] [id number] Unspecifie Problem Co mmon d Spirit cirrhosis - CHI of liver [facility] Cirrhosis Non-alcoho Problem Co mmon - lic Spirit non-alcoho cirrhosis - C HI lic [facility] 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 Spir it of liver - [facility] without [facility] Fatigue Fatigue Problem Common [facility] Chronic Other Problem Common pain chronic Spirit pain [facility] Anxiety Anxiety Problem Common [facility] Depression Depression Problem C ommon [facility] Kidney Kidney Problem Common stone stone [facility] Thrombocyt Thrombocyt Problem [facility] openia openia [facility] Bipolar Bipolar Problem Common disorder disorder [facility] Restless Restless Problem Commo n legs legs Spirit syndrome syndrome - [facility] [id number] Inflammato Problem Com mon ry bowel Spirit disease [facility] [id number] Incontinen Problem Com mon ce of Spirit feces, - CHI unspecifie St d fecal [facility] incontinen Medica l ce type [place] [id number] Closed Problem Common nondisplac Spirit ed - [facility] fracture St of greater [facility] tuberosity Medica l of right Center humerus, initial encounter [id number] Pain, Problem Commo n [id number] joint, Spirit shoulder, - CHI right [facility] Allergies, Adverse Reactions, Alerts Allergy Allergy Status Severity Reaction(s) Onset Inactive Treating Comm ents Source Name Type Date Date Clinician Fish Drug Active [facility] Allergy 2-01 [facility] 00:00: Medical Products 00 [place] Shellfis Drug Active [facility] Allergy 2-01 [facility] Containi 00:00: Medical ng 00 [place] Products FISH Allergy Active [facility] CONTAINI 2-01 [facility] NG 00:00: Medical PRODUCTS 00 [place] SHELLFIS Allergy Active [facility] H 2-01 [facility] CONTAINI 00:00: Medical NG 00 [place] PRODUCTS Fish Drug Active [facility] Containi Allergy 2- [facility] ng 00:00: Medical Products 00 Center Shellfis Drug Active [facility] Allergy 2- [facility] Containi 00:00: Medical ng 00 Center Products Eggshell Drug Active [facility] Membrane Allergy 09-07 [facility] 00:00: Medical 00 Center EGGSHELL Allergy Active [facility] MEMBRANE 09-07 [facility] 00:00: Medical 00 Center Ceftriax Propensi [...] [facility] St 09-02 [facility] 00:00: Medical 00 [place] PROMETHA Allergy Active [facility] ZINE 09-02 [facility] 00:00: Medical 00 [place] Ciproflo Propensi Active Hives 2020-08 Method i xacin ty to 0-13 st adverse 00:00: Hospita reaction 00 l s to drug Ceftriax Propensi Active Itching Unive rs one ty to 2-25 ity of adverse 00:00: [place] reaction 00 [facility] CEFTRIAX DRUG Active ITCHING Univers ONE INGREDI 2-25 ity of 00:00: [place] [facility] Ceftriax Propensi Active Itching Metho di one ty to 2-25 st adverse 00:00: Hospita reaction 00 l s to drug Prometha Propensi Active Other - See Severe U nivers zine ty to comments 3- confusion ity o f adverse 00:00: [place] reaction 00 [facility] PROMETHA DRUG Active Other-Cmnt Univ ers ZINE INGREDI 3-27 ity of 00:00: [place] 00 [facility] Eggshell Propensi Active Diarrhea Egg yoke Un linda Membrane ty to 2-27 ity of adverse 00:00: [place] reaction 00 Medical s Branch EGGSHELL DRUG Active Diarrhea 0 Univer s MEMBRANE INGREDI 10-08 ity of 00:00: [facility] Eggshell Propensi Active Diarrhea Egg yoke Me thodi Membrane ty to 10-08 st adverse 00:00: Hospita reaction 00 l s to drug Prometha Propensi Active Other (See 20170 Severe Me thodi zine ty to Comments) 09-[address] adverse 00:00: Hospita reaction 00 l s to drug Shellfis Propensi Active Anaphylaxis 0 U nivers h ty to 05-05 ity of Derived adverse 00:00: [place] reaction Medical s Branch SHELLFIS DRUG Active High Anaphylaxis 0 Uni vers H INGREDI 05-05 ity of DERIVED 00:00: Medical Branch Shellfis Propensi Active Anaphylaxis 0 M ethodi h ty to 05-05 st Derived adverse 00:00: Hospita reaction 00 l s to drug Iodine Propensi Active Anaphylaxis SOB, Met hodi ty to 05-01 wheezing, st adverse 00:00: "my Hospita reaction 00 throat l s to closes drug up."*pt states cannot have topical nor IV Iodine Propensi Active Anaphylaxis Uni vers ty to 03-29 ity of adverse 00:00: [place] reaction Medical Branch IODINE DRUG Active Anaphylaxis Unive rs INGREDI 03-29 ity of 00:00: [facility] NO KNOWN Allergy Active [facility] ALLERGIE S 463 Drug Active Unknown Common allergy [facility] prometha prometha Active Unknown Commo n isidoro chaudhry [facility] Family History Family Member Diagnosis Comments Start Date Stop Date Source Natural father No Known Problems Met [facility] Natural mother No Known Problems Met [facility] Social History Social Habit Start Date Stop Date Quantity Comments Source History of Tobacco Current Smoker Co mmon Spirit - Use [facility] Exposure to Not sure University of SARS-CoV-2 (event) [facility] History SDOH [facility] Alcohol Frequency Hospita l History SDOH [facility] Alcohol Std Drinks Hospit al History SDOH [facility] Alcohol [facility] Sexual orientation [facility] Alcohol intake 2021-09-02 2021-09-02 [facility] es 00:00:00 00:00:00 [facility]-drinker [facility] Tobacco use and 2019-01-30 2019-01-30 Smokeless tobacco Un iversity of exposure 00:00:00 00:00:00 non-user [facility] Cigarettes smoked 2016-11-22 2016-11-[address] current (pack per 00:00:00 00:00:00 Hospita l day) - Reported Cigarette 2016-11-22 2016-11-22 [facility] pack-years 00:00:00 00:00:00 Hospital Tobacco Comment 2016-09-12 2016-09-12 smokes 5 [facility] 00:00:00 00:00:00 cigarettes per Hospital day Alcohol Comment 2016-05-02 2016-05-02 Former social Method ist 00:00:00 00:00:00 alcohol use, quit Hospita l several years ago; denies history of heavy alcohol use Sex Ass[birth year] [facility] Susanna kes 00:00:00 00:00:00 [facility] Smoking Status Start Date Stop Date Source Current Smoker 2023-04-03 00:00:00 Common Spiri t - [facility] Ce nter Former Smoker 2021-10-13 00:00:00 2021-10-13 00:00:00 Common S pirit - [facility] Ce nter Never smoked tobacco [facility] Medications Ordered Filled Start Stop Current Ordering Indication Dosage Frequency Signature Comments Components Source Medication Medication Date Date Medication? Clinician (SIG) Name Name ketorolac 2022- No 30mg 30 mg, Unive rs (TORADOL) 11-07 Intramuscu ity of injection 19:15: 18:35 lar, ONCE, [place] 30 mg 00 :00 1 dose, On Medical Wed Branch 11/07/22 at 1415, Routine estradioL Yes [id number] Apply 1g Univers (ESTRACE) 2- vaginally ity o f 0.01 % (0.1 00:00: at bedtime [place] mg/gram) 00 every Medical vaginal night for Branch cream 2 weeks and then apply 1g vaginally at bedtime 3 times per week (Saturday//) nystatin Yes [id number] Apply to Un linda (NYSTOP) 2-21 area(s) 3 ity of 100,000 00:00: (three) [place] unit/gram 00 times Medical powder daily. Branch estradioL Yes [id number] Apply 1g Univers (ESTRACE) 2-21 vaginally ity o f 0.01 % (0.1 00:00: at bedtime [place] mg/gram) 00 every Medical vaginal night for Branch cream 2 weeks and then apply 1g vaginally at bedtime 3 times per week ( ida) nystatin 0 Yes [id number] Apply to Un linda (NYSTOP) 2-21 area(s) 3 ity of 100,000 00:00: (three) [place] unit/gram 00 times Medical powder daily. Branch estradioL Yes [id number] Apply 1g Univers (ESTRACE) 2-21 vaginally ity o f 0.01 % (0.1 00:00: at bedtime [place] mg/gram) 00 every Medical vaginal night for Branch cream 2 weeks and then apply 1g vaginally at bedtime 3 times per week ( dn ida) nystatin Yes [id number] Apply to Un linda (NYSTOP) 2-21 area(s) 3 ity of 100,000 00:00: (three) [place] unit/gram 00 times Medical powder daily. Branch estradioL Yes [id number] Apply 1g Univers (ESTRACE) 2-21 vaginally ity o f 0.01 % (0.1 00:00: at bedtime [place] mg/gram) 00 every Medical vaginal night for Branch cream 2 weeks and then apply 1g vaginally at bedtime 3 times per week ( dn ida) nystatin 0 Yes [id number] Apply to Un linda (NYSTOP) 2-21 area(s) 3 ity of 100,000 00:00: (three) [place] unit/gram 00 times Medical powder daily. Branch methylnaltr Yes Take by Uni vers exone 2-16 mouth. ity of bromide 14:28: [place] (RELISTOR 49 Medical ORAL) Branch potassium Yes Take by Unive rs (POTASSIMIN 2-16 mouth once it y of ORAL) 14:28: now. [place] 49 Medical Branch spironolact 0 Yes 100mg Take 100 U nivers one 100 mg 2-16 mg by ity of tablet 14:28: mouth. [place] [address] Medical Branch methylnaltr 2021-0 Yes Take by Uni vers exone 2-16 mouth. ity of bromide 14:28: [place] (RELISTOR 49 Medical ORAL) Branch potassium 2021-0 Yes Take by Unive rs (POTASSIMIN 2-16 mouth once it y of ORAL) 14:28: now. [place] [address] Medical Branch spironolact 2021-0 Yes 100mg Take 100 U nivers one 100 mg 2-16 mg by ity of tablet 14:28: mouth. [place] [address] Medical Branch methylnaltr 2021-0 Yes Take by Uni vers exone 2-16 mouth. ity of bromide 14:28: [place] (RELISTOR 49 Medical ORAL) Branch potassium 2021-0 Yes Take by Unive rs (POTASSIMIN 2-16 mouth once it y of ORAL) 14:28: now. [place] [address] Medical Branch spironolact 2021-0 Yes 100mg Take 100 U nivers one 100 mg 2-16 mg by ity of tablet 14:28: mouth. [place] [address] Medical Branch methylnaltr 0 Yes Take by Uni vers exone 2-16 mouth. ity of bromide 14:28: [place] (RELISTOR 49 Medical ORAL) Branch potassium 2021-0 Yes Take by Unive rs (POTASSIMIN 2-16 mouth once it y of ORAL) 14:28: now. [place] [address] Medical Branch spironolact 2021-0 Yes 100mg Take 100 U nivers one 100 mg 2-16 mg by ity of tablet 14:28: mouth. [place] [address] Medical Branch lactulose 2021-0 Yes 20g Q.[id number] Take [address] (Kristalose 2-07 [id number] packet (20 [facility]ukes ) 20 gram 00:00: 3D g total) Medi cj packet 00 by mouth 3 Center (three) times daily START ONCE STOOLS ARE FORMED.. lactulose 2021-0 Yes 20g Q.[id number] Take [address] (Kristalose 2-07 [id number] packet (20 [facility]ukes ) 20 gram 00:00: 3D g total) Medi cj packet 00 by mouth 3 Center (three) times daily START ONCE STOOLS ARE FORMED.. lactulose 2022-0 Yes 20g Q.[id number] Take [address] (Kristalose 2-07 [id number] packet (20 [facility] ) 20 gram 00:00: 3D g total) Medi cj packet 00 by mouth 3 Center (three) times daily START ONCE STOOLS ARE FORMED.. lactulose 2022-0 Yes 20g Q.[id number] Take [address] (Kristalose 2-07 [id number] packet (20 [facility] ) 20 gram 00:00: 3D g total) Medi cj packet 00 by mouth 3 Center (three) times daily START ONCE STOOLS ARE FORMED.. lactulose 2022-0 Yes 20g Q.[id number] Take [address] (Kristalose 2-07 [id number] packet (20 [facility] ) 20 gram 00:00: 3D g total) Medi cj packet 00 by mouth 3 Center (three) times daily START ONCE STOOLS ARE FORMED.. lactulose 2022-0 Yes 20g Q.[id number] Take [address] (Kristalose 2-07 [id number] packet (20 [facility] ) 20 gram 00:00: 3D g total) Medi cj packet 00 by mouth 3 Center (three) times daily START ONCE STOOLS ARE FORMED.. lactulose 2022-0 Yes 20g Q.[id number] Take [address] (Kristalose 2-07 [id number] packet (20 [facility]ukes ) 20 gram 00:00: 3D g total) Medi cj packet 00 by mouth 3 Center (three) times daily START ONCE STOOLS ARE FORMED.. lactulose 2022-0 Yes 20g Q.[id number] Take [address] (Kristalose 2-07 [id number] packet (20 [facility] ) 20 gram 00:00: 3D g total) Medi cj packet 00 by mouth 3 Center (three) times daily START ONCE STOOLS ARE FORMED.. lactulose 2022-0 Yes 20g Q.[id number] Take [address] (Kristalose 2-07 [id number] packet (20 [facility] ) 20 gram 00:00: 3D g total) Medi cj packet 00 by mouth 3 Center (three) times daily START ONCE STOOLS ARE FORMED.. lactulose 2022-0 Yes 20g Q.[id number] Take [address] (Kristalose 2-07 [id number] packet (20 [facility] ) 20 gram 00:00: 3D g total) Medi cj packet 00 by mouth 3 Center (three) times daily START ONCE STOOLS ARE FORMED.. lactulose Yes 20g Q.[id number] Take [address] (Kristalose 2-07 [id number] packet (20 [facility]ukes ) 20 gram 00:00: [...] Lukes tablet 12:13: mouth Medical 56 daily. [place] topiramate Yes 1{tbl} QD Take 1 CHI [...] (two) Center times daily as needed. ondansetron 2022-0 Yes 4mg Take 4 mg C HI [...] mouth Medical tablet 56 nightly. Center rifAXIMin 2022-0 Yes 1{tbl} Q.5D Take [address] [...] Lukes tablet 12:13: mouth Medical 56 daily. [place] topiramate Yes 1{tbl} QD Take 1 CHI [...] Center hours as needed for Pain. fidaxomicin 0 2- No 200mg Take [address] 200 mg Tab 2-05 02-08 tablet Lukes 00:00: 23:59 (200 mg Medical 00 :00 total) by Center mouth every 12 (twelve) hours for 3 days. fidaxomicin 2021-2021- No 200mg Take [address] 200 mg Tab 09-16-08 tablet Lukes 00:00: 23:59 (200 mg Medical 00 :00 total) by Center mouth every 12 (twelve) hours for 3 days. fidaxomicin 2021-0 2021- No 200mg Take [address] 200 mg Tab 2-08 tablet Lukes 00:00: 23:59 (200 mg Medical 00 :00 total) by Center mouth every 12 (twelve) hours for 3 days. lactulose 2021-2021- No 1{packe Q.[id number] Take [address] (Kristalose 2-04 02-04 t} [id number] packet by [facility] ) 20 gram 15:50: 00:00 3D mouth 3 Medi cj packet 31 :00 (three) Center times daily. lactulose 2021-0 2021- No 1{packe Q.[id number] Take [address] (Kristalose 2-04 02-04 t} [id number] packet by [facility] ) 20 gram 15:50: 00:00 3D mouth 3 Medi cj packet 31 :00 (three) Center times daily. lactulose 2021-0 2021- No 1{packe Q.[id number] Take [address] (Kristalose 2-04 02-04 t} [id number] packet by [facility] ) 20 gram 15:50: [...] es latum 00:00: BID. Medical (CRITIC-AID 00 [place] ) 20-51 % Pste topical paste zinc 2021-[address] oxide-luana 2-04 TOPICALLY [place] es latum 00:00: BID. Medical (CRITIC-AID [address] [place] [address] ) 20-51 % Pste topical paste zinc 2-[address] oxide-luana 2-04 TOPICALLY [place] latum 00:00: BID. Medical (CRITIC-AID [address] [place] [address] ) 20-51 % Pste topical paste zinc 2-[address] oxide-luana 2-04 TOPICALLY [place] latum 00:00: BID. Medical (CRITIC-AID [address] [place] [address] ) 20-51 % Pste topical paste zinc 2021-[address] [address] oxide-luana 2-04 TOPICALLY [place] latum 00:00: BID. Medical (CRITIC-AID [address] [place] [address] ) 20-51 % Pste topical paste zinc 2021-[address] [address] oxide-luana 2-04 TOPICALLY [place] latum 00:00: BID. Medical (CRITIC-AID [address] [place] [address] ) 20-51 % Pste topical paste zinc 2021-[address] [address] oxide-luana 2-04 TOPICALLY [place] latum 00:00: BID. Medical (CRITIC-AID [address] [place] [address] ) 20-51 % Pste topical paste zinc 2021-[address] [facility] oxide-luana 2-04 TOPICALLY [place] latum 00:00: BID. Medical (CRITIC-AID [address] [place] [address] ) 20-51 % Pste topical paste zinc 2021-[address] [facility] [address] oxide-luana 2-04 TOPICALLY [place] latum 00:00: BID. Medical (CRITIC-AID [address] [place] [address] ) 20-51 % Pste topical paste nystatin [...] St ine 2-04 02-04 t} packet by [employer] ([employer]AN) 00:00: 23:59 mouth 2 Med ical 4 gram PwPk 00 :00 (two) Center packet times daily. nystatin 2022- No Q.5D Apply [facility] (MYCOSTATIN 2-04 02-04 topically [place] kes ) 100,000 00:00: 23:59 2 (two) Medi cj unit/gram 00 :00 times Center powder daily. cholestyram 2022- No 1{packe Q.5D Take [address] ine 2-04 02-04 t} packet by [facility] ([facility]) 00:00: 23:59 mouth 2 Med ical 4 gram PwPk 00 :00 (two) Center packet times daily. nystatin 2022- No Q.5D Apply [facility] (MYCOSTATIN 2-04 02-04 topically Susanna kes ) 100,000 00:00: 23:59 2 (two) Medi cj unit/gram 00 :00 times Center powder daily. cholestyram 2022- No 1{packe Q.5D Take [address] [facility] ine 2-04 02-04 t} packet by [facility] (FabrusRAN) 00:00: 23:59 mouth 2 Med ical 4 gram PwPk 00 :00 (two) Center packet times daily. nystatin 2022- No Q.5D Apply [facility] (MYCOSTATIN 2-04 02-04 topically Susanna kes ) 100,000 00:00: 23:59 2 (two) Medi cj unit/gram 00 :00 times Center powder daily. cholestyram 2022- No 1{packe Q.5D Take [address] [facility] ine 2-04 02-04 t} packet by [facility] (FabrusRAN) 00:00: 23:59 mouth 2 Med ical 4 gram PwPk 00 :00 (two) Center packet times daily. nystatin 2022- No Q.5D Apply [facility] (MYCOSTATIN 2-04 02-04 topically Susanna kes ) 100,000 00:00: 23:59 2 (two) Medi cj unit/gram 00 :00 times Center powder daily. cholestyram 2022- No 1{packe Q.5D Take [address] [facility] ine 2-04 02-04 t} packet by [facility] (FabrusRAN) 00:00: 23:59 mouth 2 Med ical 4 gram PwPk 00 :00 (two) Center packet times daily. nystatin 2022- No Q.5D Apply [facility] (MYCOSTATIN 2-04 02-04 topically Susanna kes ) 100,000 00:00: 23:59 2 (two) Medi cj unit/gram 00 :00 times Center powder daily. cholestyram 2022- No 1{packe Q.5D Take [address] [facility] ine 2-04 02-04 t} packet by [facility] ([employer]) 00:00: 23:59 mouth 2 Med ical 4 gram PwPk 00 :00 (two) Center packet times daily. nystatin 2022- No Q.5D Apply [facility] (MYCOSTATIN 2-04 02-04 topically Susanna kes ) 100,000 00:00: 23:59 2 (two) Medi cj unit/gram 00 :00 times Center powder daily. cholestyram 2022- No 1{packe Q.5D Take [address] [facility] ine 2-04 02-04 t} packet by [facility] ([facility]rus[facility]AN) 00:00: 23:59 mouth 2 Med ical 4 gram PwPk 00 :00 (two) Center packet times daily. nystatin 2022- No Q.5D Apply [facility] (MYCOSTATIN 2-04 02-04 topically Susanna kes ) 100,000 00:00: 23:59 2 (two) Medi cj unit/gram 00 :00 times Center powder daily. cholestyram 2022- No 1{packe Q.5D Take [address] [facility] ine 2-04 02-04 t} packet by [facility] ([facility]rus[facility]AN) 00:00: 23:59 mouth 2 Med ical 4 gram PwPk 00 :00 (two) Center packet times daily. nystatin 2022- No Q.5D Apply [facility] (MYCOSTATIN 2-04 02-04 topically Susanna kes ) 100,000 00:00: 23:59 2 (two) Medi cj unit/gram 00 :00 times Center powder daily. cholestyram 2022- No 1{packe Q.5D Take [address] [facility] ine 2- 02-04 t} packet by [facility] ([facility]) 00:00: 23:59 mouth 2 Med ical 4 gram PwPk 00 :00 (two) Center packet times daily. nystatin 2022- No Q.5D Apply [facility] (MYCOSTATIN 09-15 02-04 topically Susanna kes ) 100,000 00:00: 23:59 2 (two) Medi cj unit/gram 00 :00 times Center powder daily. cholestyram 2022- No 1{packe Q.5D Take [address] [facility] ine 2- 02-04 t} packet by [facility] (QUESTRAN) 00:00: 23:59 mouth 2 Med ical 4 gram PwPk 00 :00 (two) Center packet times daily. acetaminoph 2022- No 650mg Take [address] [facility] [address] [facility] en 09-15-30 tablets [facility] (TYLENOL) 00:00: 23:59 (650 mg Medi cj 325 MG 00 :00 total) by Center tablet mouth every 8 (eight) hours as needed for up to 360 days. acetaminoph 2022- No 650mg Take [address] [facility] en 09-15-30 [facility] (TYLENOL) 00:00: 23:59 (650 mg Medi cj 325 MG 00 :00 total) by Center tablet mouth every 8 (eight) hours as needed for up to 360 days. acetaminoph 2022- No 650mg Take [address] en 09-15-30 [facility] (TYLENOL) 00:00: 23:59 (650 mg Medi cj 325 MG 00 :00 total) by Center tablet mouth every 8 (eight) hours as needed for up to 360 days. acetaminoph 2022- No 650mg Take [address] en 09-15-30 [facility] (TYLENOL) 00:00: 23:59 (650 mg [...] hours or as directed by MD. lidocaine 2022-0 2022- No 1{patch Q24H Place [address] (LIDODERM) 2-06 } patch onto Susanna kes 5 % patch 00:00: 23:59 the skin Med ical 00 :00 daily for Center 30 days Remove & Discard patch within 12 hours or as directed by MD. lidocaine 2-0 2022- No 1{patch Q24H Place [address] (LIDODERM) 2-06 } patch onto Susanna kes 5 % patch 00:00: 23:59 the skin Med ical 00 :00 daily for Center 30 days Remove & Discard patch within 12 hours or as directed by MD. fidaxomicin 202-0 2022- No 200mg Take [address] 200 mg Tab 09-15-05 tablet [facility] 00:[facility]: 00:[facility] (200 mg Medical 00 :00 total) by Center mouth every 12 (twelve) hours for 7 days. fidaxomicin 2-0 2022- No 200mg Take [address] [facility] [address] 200 mg Tab 2- tablet [facility] 00:[facility]: 00:[facility] (200 mg Medical 00 :00 total) by Center mouth every 12 (twelve) hours for 7 days. fidaxomicin 2022-0 2022- No 200mg Take [address] 200 mg Tab 2-11 11-05 tablet [facility] 00:00: 00:[facility] (200 mg Medical 00 :00 total) by Center mouth every 12 (twelve) hours for 7 days. cholestyram 2021-0 2022- No 1{packe Q.5D Take [address] [facility] ine 2-11 11-04 t} packet by [facility] (QUESTRAN) 00:00: 00:00 [...] 12 hours or as directed by MD. cholestyram 2021-2- No 1{packe Q.5D Take [address] [facility] ine 2-04 02-04 t} packet by [facility] ([facility]rus[facility]AN) 00:00: 00:00 mouth 2 Med ical 4 [...] St ine 2-04 02-04 t} packet by [employer] ([facility]rus[facility]AN) 00:00: 00:00 mouth 2 Med ical 4 [...] hours or as directed by . cyanocobala 2021- Yes 1000ug Inject [facility] min [...] capsule 52 (two) Center times daily. lactulose 0 Yes 1{packe Q.29025558 Take [address] [facility] (Kristalose 1-24 t} [id number] packet by [facility] ) 20 gram 16:27: 3D mouth 3 Medic al packet 52 (three) Center times daily. azithromyci 2021- No 500mg QD Take 1 Me [facility] n -[address] (ZITHROMAX) 00:00: 05:59 (500 [...] daily as l [facility]. [facility] [...] tablet 18:28: nightly. Hosp page 48 Per [place] [facility] Prescript[facility] on Drug Monitoring Program records: Last filled: 08/09/21 Quantity: 30 Days Supply: 30 traMADoL Yes 50mg Q4H Take 50 mg Met hodi (ULTRAM) 50 1-[address] mg tablet 18:28: every 4 Hospi ta 48 (four) l hours as needed for moderate pain. Per [place] Prescript[facility] on Drug Monitoring [facility] records: Last [...] 50mg QD Take 50 mg [facility] (SEROquel) -10 01-[address] 200 MG 10:29: 00:00 nightly. Hospit a tablet 47 :00 l SUMAtriptan Yes [id number] 50mg Q24H Take 1 [facility] (Imitrex) 1-10 [...] nightly for 30 days. pantoprazol 2021- No [id number] 40mg QD Take 1 [facility] e 08-21-10 [...] 30 days. SUMAtriptan 2021- No TAKE AT Tn thodi (IMITREX) 08-[address] 100 [...] 100mg Q.5D Take 1 Me thodi oin, 208-[address] macrocrysta 00:00: 00:00 (100 mg [...] ondansetron 2020-08 Metho di (ZOFRAN) 4 0-04 01-08 st [...] a day for 30 days. gabapentin 2020-0 2021- No 300mg Q.[id number] Take 1 [facility] (NEURONTIN) 04-[id number] 300 mg 00:00: 00:00 3D (300 mg Hospita capsule 00 :00 total) by l mouth 3 (three) times a day for 30 days. Ketorolac Ketorolac 2020-0 No 30mg Com mon (Toradol) (Toradol) 8-24 Spiri t per 15mg per 15mg 00:00: - [facility] Ketorolac Ketorolac 2020-0 No 30mg Com mon (Toradol) (Toradol) 8-24 Spiri t per 15mg per 15mg 00:00: - [facility] Ketorolac Ketorolac 2020-0 No 30mg Com mon (Toradol) (Toradol) 8-24 Spiri t per 15mg per 15mg 00:00: - [facility] Ketorolac Ketorolac 2020-0 No 30mg Com mon (Toradol) (Toradol) 8-24 Spiri t per 15mg per 15mg 00:00: - [facility] Ketorolac Ketorolac 2020-0 No 30mg Com mon (Toradol) (Toradol) 8-24 Spiri t per 15mg per 15mg 00:00: - [facility] Ketorolac Ketorolac 2020-0 No 30mg Com mon (Toradol) (Toradol) 8-24 Spiri t per 15mg per 15mg 00:00: - [facility] Vitamin B12 Vitamin B12 2020-0 No 1000ug Common (Cyanocobal (Cyanocobal 7-24 S pirit jameson) jameson) 00:00: - [facility] Vitamin B12 Vitamin B12 2020-0 No 1000ug Common (Cyanocobal (Cyanocobal 7-24 S pirit jameson) jameson) 00:00: - [facility] Vitamin B12 Vitamin B12 2020-0 No 1000ug Common (Cyanocobal (Cyanocobal 7-24 S pirit jameson) jameson) 00:00: - [facility] Vitamin B12 Vitamin B12 2020-0 No 1000ug Common (Cyanocobal (Cyanocobal 7-24 S pirit jameson) jameson) 00:00: - [facility] Vitamin B12 Vitamin B12 2020-0 No 1000ug Common (Cyanocobal (Cyanocobal 7-24 S pirit jameson) jameson) 00:00: - [facility] Vitamin B12 Vitamin B12 2020-0 No 1000ug Common (Cyanocobal (Cyanocobal 7-24 S pirit jameson) jameson) 00:00: - [facility] pantoprazol 2019-0 2021- No [id number] 40mg QD Take 1 [facility] e 01-24 tablet (40 st (PROTONIX) 00:00: 00:00 mg total) H ospita 40 MG EC 00 :00 by mouth l tablet every morning. SUMAtriptan 2021- No [id number] 50mg Q24H Take 1 [facility] (Imitrex) 01-24 [...] pirit jameson) jameson) 00:00: - [facility] Vitamin B12 Vitamin B12 2018-08 No 1000ug Common (Cyanocobal (Cyanocobal 2-05 S pirit jameson) jameson) 00:00: - [facility] Vitamin B12 Vitamin B12 2019-1 No 1000ug Common (Cyanocobal (Cyanocobal 2-05 S pirit jameson) jameson) 00:00: - [facility] Vitamin B12 Vitamin B12 2019-1 No 1000ug Common (Cyanocobal (Cyanocobal 2-05 S pirit jameson) jameson) 00:00: - [facility] Vitamin B12 Vitamin B12 2019-1 No 1000ug Common (Cyanocobal (Cyanocobal 2-05 S pirit jameson) jameson) 00:00: - [facility] Vitamin B12 Vitamin B12 2019-1 No 1000ug Common (Cyanocobal (Cyanocobal 2-05 S pirit jameson) jameson) 00:00: - [facility] Vitamin B12 Vitamin B12 2019-0 No 1000ug Common (Cyanocobal (Cyanocobal 8-29 S pirit jameson) jameson) 00:00: - [facility] Vitamin B12 Vitamin B12 2019-0 No 1000ug Common (Cyanocobal (Cyanocobal 8-29 S pirit jameson) jameson) 00:00: - [facility] Vitamin B12 Vitamin B12 2019-0 No 1000ug Common (Cyanocobal (Cyanocobal 8-29 S pirit jameson) jameson) 00:00: - [facility] Vitamin B12 Vitamin B12 2019-0 No 1000ug Common (Cyanocobal (Cyanocobal 8-29 S pirit jameson) jameson) 00:00: - [facility] Vitamin B12 Vitamin B12 2019-0 No 1000ug Common (Cyanocobal (Cyanocobal 8-29 S pirit jameson) jameson) 00:00: - [facility] Vitamin B12 Vitamin B12 2019-0 No 1000ug Common (Cyanocobal (Cyanocobal 8-29 S pirit jameson) jameson) 00:00: - [facility] eszopiclone 2019-0 Yes 2mg Take 2 mg U nivers 2 mg tablet 03-09 by mouth ity of 16:42: at [place] [address] bedtime. Medical Branch GABAPENTIN 2019-0 Yes Take by Univ ers ORAL 03-09 mouth. ity of 16:42: [place] [address] Medical Branch traMADOL 50 2019-0 Yes 50mg Take 50 mg Univers mg tablet 7-29 by mouth ity of 16:42: as needed [place] [address] for Pain Medical (scale Branch 7-10). eszopiclone 2019-0 Yes 2mg Take 2 mg U nivers 2 mg tablet 7-29 by mouth ity of 16:42: at [place] [address] bedtime. Medical Branch GABAPENTIN 2019-0 Yes Take by [facility] ers ORAL 7-29 mouth. ity of 16:42: [place] [address] Medical Branch traMADOL 50 2019-0 Yes 50mg Take 50 mg Univers mg tablet 7-29 by mouth ity of 16:42: as needed [place] [address] for Pain Medical (scale Branch 7-10). eszopiclone 2019-0 Yes 2mg Take 2 mg U nivers 2 mg tablet 7-29 by mouth ity of 16:42: at [place] [address] bedtime. Medical Branch GABAPENTIN 2019-0 Yes Take by [facility] ers ORAL 7-29 mouth. ity of 16:42: [place] [address] Medical Branch traMADOL 50 2018-0 Yes 50mg Take 50 mg Univers mg tablet 7-29 by mouth ity of 16:42: as needed [place] [address] for Pain Medical (scale Branch 7-10). eszopiclone 2019-0 Yes 2mg Take 2 mg U nivers 2 mg tablet 7-29 by mouth ity of 16:42: at [place] [address] bedtime. Medical Branch GABAPENTIN 2019-0 Yes Take by [facility] ers ORAL 7-29 mouth. ity of 16:42: [place] [address] Medical Branch traMADOL 50 2019-0 Yes 50mg Take 50 mg Univers mg tablet 7-29 by mouth ity of 16:42: as needed [place] [address] for Pain Medical (scale Branch 7-10). lactulose 2019-0 Yes [id number] 20g Take 1 Un linda (KRISTALOSE 7-29 Packet by ity of ) 20 gram 00:00: mouth 3 [place] packet 00 (three) Medical times Branch daily. lactulose 2019-0 Yes [id number] 20g Take 1 Un linda (KRISTALOSE 7-29 Packet by ity of ) 20 gram 00:00: mouth 3 [place] packet 00 (three) Medical times Branch daily. lactulose 2019-0 Yes [id number] 20g Take 1 Un linda (KRISTALOSE 7-29 Packet by ity of ) 20 gram 00:00: mouth 3 [place] packet 00 (three) Medical times Branch daily. lactulose 2019-0 Yes [id number] 20g Take 1 Un linda (KRISTALOSE 7-29 Packet by ity of ) 20 gram 00:00: mouth 3 [place] packet 00 (three) Medical times Branch daily. ondansetron 2019-0 Yes [id number] 8mg Take 2 Univers 4 mg tablet 4-01 tablets by it y of 00:00: mouth [place] 00 every 8 Medical (eight) Branch hours as needed for Nausea and Vomiting (N/V). ondansetron 2019- Yes [id number] 8mg Take 2 Univers 4 mg tablet 4-01 tablets by it y of 00:00: mouth [place] 00 every 8 Medical (eight) Branch hours as needed for Nausea and Vomiting (N/V). ondansetron 2019-0 Yes [id number] 8mg Take 2 Univers 4 mg tablet 4-01 tablets by it y of 00:00: mouth [place] 00 every 8 Medical (eight) Branch hours as needed for Nausea and Vomiting (N/V). ondansetron 2018- Yes [id number] 8mg Take 2 Univers 4 mg tablet 4-01 tablets by it y of 00:00: mouth [place] 00 every 8 Medical (eight) Branch hours as needed for Nausea and Vomiting (N/V). butalbital- 2019- Yes [id number] 1{capsu Take 1 Univers aspirin-caf 3-25 le} capsule by it y of feine 00:00: mouth [place] 50-325-40 00 every 4 Medical mg per (four) Branch capsule hours as needed for Pain (headache unrelieved wtih other medication s). butalbital- 2018- Yes [id number] 1{capsu Take 1 Univers aspirin-caf 3-25 le} capsule by it y of feine 00:00: mouth [place] 50-325-40 00 every 4 Medical mg per (four) Branch capsule hours as needed for Pain (headache unrelieved wtih other medication s). butalbital- 2019- Yes [id number] 1{capsu Take 1 Univers aspirin-caf 3-25 le} capsule by it y of feine 00:00: mouth [place] 50-325-40 00 every 4 Medical mg per (four) Branch capsule hours as needed for Pain (headache unrelieved wtih other medication s). butalbital- 2019- Yes [id number] 1{capsu Take 1 Univers aspirin-caf 3-25 le} [...] MCG/ACT MCG/ACT MCG/ACT XIFAXAN 550 2016-08 Yes [id number] TAKE ONE Univers mg tablet 1-27 TABLET BY ity o f 00:00: MOUTH 2 TIMES A Medical DAY Branch PANTOPRAZOL 2016-08 Yes [id number] TAKE ONE Univers E 40 mg EC 1-27 TABLET BY ity of tablet 00:00: MOUTH [place] EVERY DAY Medical Branch XIFAXAN 550 2016-08 Yes [id number] TAKE ONE Univers mg tablet 1-27 TABLET BY ity o f 00:00: MOUTH 2 [place] TIMES A Medical DAY Branch PANTOPRAZOL 2016-08 Yes [id number] TAKE ONE Univers E 40 mg EC 1-27 TABLET BY ity of tablet 00:00: MOUTH [place] EVERY DAY Medical Branch XIFAXAN 550 2016-08 Yes [id number] TAKE ONE Univers mg tablet 1-27 TABLET BY ity o f 00:00: MOUTH 2 [place] TIMES A Medical DAY Branch PANTOPRAZOL 2016-08 Yes [id number] TAKE ONE Univers E 40 mg EC 1-27 TABLET BY ity of tablet 00:00: MOUTH EVERY DAY Medical Branch XIFAXAN 550 2016-08 Yes [id number] TAKE ONE Univers mg tablet 1-27 TABLET BY ity o f 00:00: MOUTH 2 [place] TIMES A Medical DAY Branch PANTOPRAZOL 2016-08 Yes [id number] TAKE ONE Univers E 40 mg EC 1-27 TABLET BY ity of tablet 00:00: MOUTH [place] 00 EVERY DAY Medical Branch acetaminoph Yes [...] 00 (three) Medical times Branch daily. acetaminoph 2016- Yes 1{tbl} Take 1 Un linda en-codeine [...] 0-10 by mouth. ity of tablet 00:00: [address] Branch furosemide 2015-08 Yes 40mg Take 40 mg U nivers 40 mg 0-10 by mouth. ity of tablet 00:00: [address] Branch furosemide 2015-08 Yes 40mg Take 40 mg U nivers 40 mg 0-10 by mouth. ity of tablet 00:00: [address] Branch Allopurinol Allopurinol Yes Fernando 2 tablets [facility] Zofran ODT Zofran ODT No 1{table [...] MG le_with in 50 MG _food_o r_milk} OLANZapine OLANZapine No OLANZapine Mycophenola Mycophenola No Mycophenol te Sodium te Sodium ate Sodium SUMAtriptan SUMAtriptan No SUMAtripta Succinate Succinate n 100 MG 100 MG Succinate 100 MG Ultram 50 Ultram 50 No 1{table QID Ultram 50 MG MG t_as_ne MG eded} Gabapentin Gabapentin No 1{capsu BID Gabapentin 300 MG 300 MG le} 300 MG Thiamine Thiamine No Thiamine HCl 100 MG HCl 100 MG HCl 100 MG Sodium Sodium No Sodium Bicarbonate Bicarbonate Bicarbonat e Benztropine Benztropine No 1{table QD Benztropin Mesylate Mesylate t_at_be e Mesylate 0.5 MG 0.5 MG dtime} 0.5 MG Cyanocobala Cyanocobala No Cyanocobal min 1000 min 1000 jameson 1000 MCG/ML MCG/ML MCG/ML Zinc Zinc No Zinc Sulfate 220 Sulfate 220 Sulfate (50 Zn) MG (50 Zn) MG 220 (50 Zn) MG Primidone Primidone No 1{table QD Primidone 50 MG 50 MG t} 50 MG Ondansetron Ondansetron No Ondansetro HCl HCl n HCl Zofran ODT Zofran ODT No 1{table TID Zofran ODT 4 MG 4 MG t_on_th 4 MG e_tongu e_and_a llow_to _dissol ve} BD TB BD TB No BD TB Syringe 25G Syringe 25G Syringe X 8" 1 ML X 8" 1 ML 25G X 58" 1 ML Topiramate Topiramate No Topiramate 50 MG 50 MG 50 MG Kristalose Kristalose No 1{packe Kristalose 20 GM 20 GM t} 20 GM Furosemide Furosemide No Furosemide Xifaxan 550 Xifaxan 550 No 1{table BID Xifaxan MG MG t} 550 MG Indomethaci Indomethaci No 1{capsu BID Indomethac n 50 MG n 50 MG le_with in 50 MG _food_o r_milk} cloNIDine cloNIDine No cloNIDine Tacrolimus Tacrolimus No Tacrolimus Belsomra 10 Belsomra 10 No 1{table QD Belsomra MG MG t_at_be 10 MG dtime_a s_neede d} Aspirin 81 Aspirin 81 No Aspirin 81 Lactobacill Lactobacill No Lactobacil us us fidelina predniSONE predniSONE No predniSONE Pentamidine Pentamidine No Pentamidin Isethionate Isethionate e Isethionat e Syringe 2-3 Syringe 2-3 No Syringe ML 3 ML ML 3 ML 2-3 ML 3 ML Pregabalin Pregabalin No Pregabalin Magnesium Magnesium No Magnesium Oxide Oxide Oxide Allopurinol Allopurinol No 1{table QD Allopurino 100 MG 100 MG t} l 100 MG Pantoprazol Pantoprazol No 1{table QD Pantoprazo e Sodium 40 e Sodium 40 t} le Sodium MG MG 40 MG SEROquel 50 SEROquel 50 No 1{table QD SEROquel MG MG t} 50 MG Spironolact Spironolact No 1{table QD Spironolac one 25 MG one 25 MG t_with_ tone 25 MG food} Rexulti 2 Rexulti 2 No Rexulti 2 MG MG MG Ursodiol Ursodiol No Ursodiol Sumatriptan Sumatriptan No Sumatripta Succinate Succinate n [...] 2 No Rexulti 2 MG MG MG Vital Signs Vital Name Observation Time Observation Value Comments Source Systolic blood 2022-11-07 17:39:00 111 mm[Hg] Univer sity [facility] Diastolic blood 2022-11-07 17:39:00 64 mm[Hg] Unive [facility] Heart rate 2022-11-07 17:39:00 79 /min [facility] Body temperature 2022-11-07 17:39:00 36.5 [facility]te [facility] Respiratory rate 2022-11-07 17:39:00 18 /min [facility] Body weight 2022-11-07 17:39:00 80.287 kg Universi ty of [facility] BMI 2022-11-07 17:39:00 35.75 kg/m2 Universi ty [facility] Oxygen saturation in 2022-11-07 17:39:00 99 /min [facility] Arterial blood by [facility] Pulse oximetry Branch Systolic blood 2021-11-16 18:59:00 111 mm[Hg] Univer sity of pressure [facility] Diastolic blood 2021-11-16 18:59:00 74 mm[Hg] [facility] Heart rate 2021-11-16 18:59:00 75 /min Universi ty of [facility] Body temperature 2021-11-16 18:59:00 36.67 Georgette [facility] Body height 2021-11-16 18:59:00 149.9 cm Universi ty of [facility] Body weight 2021-11-16 18:59:00 80.559 kg Universi ty of [facility] BMI 2021-11-16 18:59:00 35.87 kg/m2 Universi ty of [facility] height 2021-10-16 15:30:00 59 [in_i] [facility] weight 2021-10-16 15:30:00 176.5 [lb_av] Common [facility] temperature 2021-10-16 15:30:00 97.2 [degF] Common [facility] bmi 2021-10-16 15:30:00 35.64 kg/m2 [facility] oximetry 2021-10-16 15:30:00 100 % Common [facility] respiratory rate 2021-10-16 15:30:00 18 /min Comm on [facility] blood pressure 2021-10-16 15:30:00 123 mm[Hg] Common [facility] blood pressure 2021-10-16 15:30:00 65 mm[Hg] [facility] height 2021-09-25 10:40:00 59 [in_i] Common S pirit - [facility] weight 2021-09-25 10:40:00 190 [lb_av] Common S pirit [facility] temperature 2021-09-25 10:40:00 97.4 [degF] Common S pirit - [facility] bmi 2021-09-25 10:40:00 38.37 kg/m2 Common S pirit - [facility] blood pressure 2021-09-25 10:40:00 125 mm[Hg] [facility] systolic [facility] blood pressure 2021-09-25 10:40:00 76 mm[Hg] [facility] - diastolic [facility] HEIGHT 2021-09-02 15:44:00 149.9 cm WEIGHT 2021-09-02 15:44:00 87.091 kg HEIGHT 2021-09-02 15:44:00 149.9 cm WEIGHT 2021-09-02 15:44:00 87.091 kg height 2021-04-26 10:30:00 59 [in_i] Common [facility]irit [facility] weight 2021-04-26 10:30:00 215 [lb_av] Common S [facility]irit [facility] temperature 2021-04-26 10:30:00 98 [degF] Common S pirit [facility] bmi 2021-04-26 10:30:00 43.42 kg/m2 Common S pirit - [facility] blood pressure 2021-04-26 10:30:00 121 mm[Hg] [facility] systolic [facility] blood pressure 2021-04-26 10:30:00 70 mm[Hg] [facility] diastolic [facility] height 2021-04-26 14:20:00 59 [in_i] Common S pirit [facility] weight 2021-04-26 14:20:00 215 [lb_av] Common S pirit [facility] temperature 2021-04-26 14:20:00 98 [degF] Common [facility] bmi 2021-04-26 14:20:00 43.42 kg/m2 [facility] oximetry 2021-04-26 14:20:00 100 % [facility] blood pressure 2021-04-26 14:20:00 121 mm[Hg] [facility] systolic [facility] blood pressure 2021-04-26 14:20:00 70 mm[Hg] [facility] diastolic [facility] Systolic blood 2021-09-16 08:00:00 98 mm[Hg] [facility] Diastolic blood 2021-09-16 08:00:00 49 mm[Hg] [facility] Heart rate 2021-09-16 08:00:00 89 /min [facility] Body temperature 2021-09-16 08:00:00 36.17 Georgette [facility] Respiratory rate 2021-09-16 08:00:00 18 /min [facility] Oxygen saturation in 2021-09-16 08:00:00 99 /min [facility] Arterial blood by Medical Ce nter Pulse oximetry Systolic blood 2021-09-11 19:42:00 125 mm[Hg] [facility] Diastolic blood 2021-09-11 19:42:00 60 mm[Hg] [facility] Heart rate 2021-09-11 19:42:00 98 /min [facility] Body temperature 2021-09-11 19:42:00 35.67 Georgette [facility] Respiratory rate 2021-09-11 19:42:00 18 /min [facility] Oxygen saturation in 2021-09-11 19:42:00 100 /min [facility] Arterial blood by Medical Ce nter Pulse oximetry Body height 2021-09-02 15:44:00 149.9 cm [facility] Body weight 2021-09-02 15:44:00 87.091 kg [facility] BMI 2021-09-02 15:44:00 38.78 kg/m2 [facility] Systolic blood 2021-08-31 06:30:00 119 mm[Hg] [facility] pressure Diastolic blood 2021-08-31 06:30:00 68 mm[Hg] [facility] pressure Heart rate 2021-08-31 06:30:00 70 /min [facility] Respiratory rate 2021-08-31 06:30:00 16 /min [facility] Oxygen saturation in 2021-08-31 06:30:00 97 /min [facility] Arterial blood by Pulse oximetry Body temperature 2021-08-31 04:04:09 36.83 Georgette [facility] Body height 2021-08-31 04:04:00 149.9 cm [facility] Body weight 2021-08-31 04:04:00 89.359 kg [facility] BMI 2021-08-31 04:04:00 39.79 kg/m2 [facility] [place] Procedures Procedure Date / Time Performing Clinician Source Performed NOTICE OF PRIVACY 2022-11-07 17:30:44 Doctor Unassigned, No [facility] PRACTICES Name [facility] [place] CONSENT/REFUSAL FOR 2022-11-07 17:30:27 Doctor Unassigned, No [facility] DIAGNOSIS AND TREATMENT [facility] EXTERNAL PROVIDER RECORDS 2022-02-08 05:01:00 Doctor Unassigned, No [facility] HEPATITIS A ANTIBODY, IGM 2022-01-23 15:13:00 [facility] HEPATITIS B SURFACE 2022-01-23 15:13:00 [facility] HEPATITIS B CORE ANTIBODY, 2022-01-23 15:13:00 [facility] HEPATITIS C ANTIBODY 2022-01-23 15:13:00 [facility] HEPATIC FUNCTION PANEL 2021-09-15 05:20:00 Niya Cartagena [facility] CBC W/PLT COUNT & AUTO 2021-09-15 05:20:00 Niya Cartagena [facility] PROTHROMBIN TIME/INR 2021-09-15 05:20:00 Niya Cartagena [facility] BASIC METABOLIC PANEL 2021-09-15 05:20:00 Niya Cartagena [facility] CBC W/PLT COUNT & AUTO 2021-09-15 05:20:00 Kajag, Niyaraquel White [facility] CT ABDOMEN/PELVIS WITHOUT 2021-09-15 00:49:00 Rafael Savannahefrengricelda [facility] IV CONTRAST [facility] CBC W/PLT COUNT & AUTO 2021-09-14 08:36:00 Kaim Niya [facility] CBC W/PLT COUNT & AUTO 2021-09-14 08:36:00 Kaim, [facility] HEPATIC FUNCTION PANEL 2021-09-14 07:35:00 Kaim Niya [facility] PROTHROMBIN TIME/INR 2021-09-14 07:35:00 KaimNiya [facility] BASIC METABOLIC PANEL 2021-09-14 07:35:00 LizzimNiya [facility] HEPATIC FUNCTION PANEL 2021-09-13 07:14:00 Kaim Niya [facility] CBC W/PLT COUNT & AUTO 2021-09-13 07:14:00 Kaim Niya [facility] PROTHROMBIN TIME/INR 2021-09-13 07:14:00 KaimNiya [facility] BASIC METABOLIC PANEL 2021-09-13 07:14:00 LizzimNiya [facility] CBC W/PLT COUNT & AUTO 2021-09-13 07:14:00 Kaim Niya [facility] HEPATIC FUNCTION PANEL 2021-09-12 04:23:00 Kaim Niya [facility] CBC W/PLT COUNT & AUTO 2021-09-12 04:23:00 Kaim Niya [facility] PROTHROMBIN TIME/INR 2021-09-12 04:23:00 Kaim Niya [facility] BASIC METABOLIC PANEL 2021-09-12 04:23:00 KaimNiya [facility] MAGNESIUM 2021-09-12 04:23:00 Selma Lu [facility] VITAMIN B12 2021-09-12 04:23:00 Bradely [facility] VITAMIN D, 25-HYDROXY 2021-09-12 04:23:00 Mirna [facility] C-REACTIVE PROTEIN 2021-09-12 04:23:00 Bradley [facility] CBC W/PLT COUNT & AUTO 2021-09-12 04:23:00 Mitzi Niya [facility] HEPATIC FUNCTION PANEL 2021-09-11 05:33:00 Mitzi Niya [facility] CBC W/PLT COUNT & AUTO 2021-09-11 05:33:00 Niya Cartagena [facility] PROTHROMBIN TIME/INR 2021-09-11 05:33:00 Niya Cartagena [facility] BASIC METABOLIC PANEL 2021-09-11 05:33:00 Niya Cartagena C [facility] MAGNESIUM 2021-09-11 05:33:[address] [facility] CBC W/PLT COUNT & AUTO 2021-09-11 05:33:00 Niya Cartagena [facility] HEPATIC FUNCTION PANEL 2021-09-10 06:52:00 KaNiya rm [facility] CBC W/PLT COUNT & AUTO 2021-09-10 06:52:00 KaNiya rm [facility] PROTHROMBIN TIME/INR 2021-09-10 06:52:00 KaNiya rm [facility] BASIC METABOLIC PANEL 2021-09-10 06:52:00 Kaim Niya Cindy C [facility] MAGNESIUM 2021-09-10 06:52:[address] [facility] CBC W/PLT COUNT & AUTO 2021-09-10 06:52:00 KaNiya rm [facility] HEPATIC FUNCTION PANEL 2021-09-09 05:51:00 KaimNiya [facility] CBC W/PLT COUNT & AUTO 2021-09-09 05:51:00 Mitzi Niya [facility] PROTHROMBIN TIME/INR 2021-09-09 05:51:00 Niya Cartagena [facility] BASIC METABOLIC PANEL 2021-09-09 05:51:00 KaNiya rm [facility] CBC W/PLT COUNT & AUTO 2021-09-09 05:51:00 KaNiya rm [facility] (CELLAVISION MANUAL DIFF) 2021-09-09 05:51:00 Niya Cartagena [facility] AMMONIA 2021-09-08 10:54:00 Selma Lu [facility] PHOSPHORUS 2021-09-08 05:14:00 Isabella, [facility] HEPATIC FUNCTION PANEL 2021-09-08 05:14:00 KaimNiya [facility] CBC W/PLT COUNT & AUTO 2021-09-08 05:14:00 Mitzi Niya [facility] PROTHROMBIN TIME/INR 2021-09-08 05:14:00 Niya Cartagena [facility] BASIC METABOLIC PANEL 2021-09-08 05:14:00 Niya Cartagena [facility] CBC W/PLT COUNT & AUTO 2021-09-08 05:14:00 Niya Cartagena Icndy [facility] (CELLAVISION MANUAL DIFF) 2021-09-08 05:14:00 Niya Cartagena [facility] PHOSPHORUS 2021-09-07 05:37:00 Isabella [facility] HEPATIC FUNCTION PANEL 2021-09-07 05:37:00 KaimNiya [facility] CBC W/PLT COUNT & AUTO 2021-09-07 05:37:00 Niya Cartagena [facility] PROTHROMBIN TIME/INR 2021-09-07 05:37:00 Niya Cartagena [facility] BASIC METABOLIC PANEL 2021-09-07 05:37:00 Niya Cartagena [facility] CBC W/PLT COUNT & AUTO 2021-09-07 05:37:00 Niya Cartagena [facility] (CELLAVISION MANUAL DIFF) 2021-09-07 05:37:00 Niya Cartagena on [facility] PROTHROMBIN TIME/INR 2021-09-06 06:37:00 Niya Cartagena [facility] BASIC METABOLIC PANEL 2021-09-06 06:37:00 Zara Mason [facility] PHOSPHORUS 2021-09-06 06:37:00 Juve Masonini [facility] PROTHROMBIN TIME/INR 2021-09-05 14:31:00 Niya Cartagena [facility] BASIC METABOLIC PANEL 2021-09-05 14:31:00 Juve Masonini [facility] PHOSPHORUS 2021-09-05 14:31:00 [facility] & AUTO 2021-09-05 14:31:00 Zara Mason [facility] HEPATIC FUNCTION PANEL 2021-09-05 14:31:00 Juve Masonini [facility] CBC W/PLT COUNT & AUTO 2021-09-05 14:31:00 Zara Mason [facility] (CELLAVISION MANUAL DIFF) 2021-09-05 14:31:00 Gianna Masonnalin i [facility] C. DIFFICILE GDH TOXIN 2021-09-04 11:52:00 ScottytaJaqueline [facility] CT ABDOMEN/PELVIS WITH IV 2021-09-04 09:03:[address] [facility] CONTRAST [facility] CT CHEST WITH IV CONTRAST 2021-09-04 09:03:00 Gianna Masonnalin i [facility] CBC W/PLT COUNT & AUTO 2021-09-04 04:39:00 Nia Lawrence [facility] COMPREHENSIVE METABOLIC 2021-09-04 04:39:[address] [facility] MAGNESIUM 2021-09-04 04:39:00 Nia Lawrence [facility] PHOSPHORUS 2021-09-04 04:39:00 Nia Lawrence [facility] CBC W/PLT COUNT & AUTO 2021-09-04 04:39:00 Nia Lawrence [facility] (CELLAVISION MANUAL DIFF) 2021-09-04 04:39:00 Nia Lawrence sa [facility] HEPATITIS A ANTIBODY, IGG 2021-09-03 12:02:00 Gianna Masonnalin i [facility] HEPATITIS B CORE ANTIBODY, 2021-09-03 12:02:[address] [facility] TOTAL [facility] HEPATITIS B SURFACE 2021-09-03 12:02:[address] [facility] ANTIBODY [facility] HEPATITIS B SURFACE 2021-09-03 12:02:[address] [facility] ANTIGEN [facility] HEPATITIS C ANTIBODY 2021-09-03 12:02:00 Gianna Masonnalnatan [facility] CBC W/PLT COUNT & AUTO 2021-09-03 12:01:00 Nia Lawrence [facility] COMPREHENSIVE METABOLIC 2021-09-03 12:01:[address] [facility] MAGNESIUM 2021-09-03 12:01:00 Nia Lawrence [facility] PHOSPHORUS 2021-09-03 12:01:00 Nia Lawrence [facility] PROTHROMBIN TIME/INR 2021-09-03 12:01:[address] [facility] Depamaylo [facility] CBC W/PLT COUNT & AUTO 2021-09-03 12:01:00 Nia Lawrence [facility] (CELLAVISION MANUAL DIFF) 2021-09-03 12:01:00 Nia Lawrence sa [facility] BLOOD CULTURE 2021-09-03 11:59:00 [facility]ia [facility] OVA AND PARASITE 2021-09-02 09:44:00 DelmiTroyil [facility] GI PATHOGEN PROFILE BY PCR 2021-09-02 09:44:00 Delmi, Troy Bladimir il [facility] BLOOD CULTURE 2021-09-02 06:03:00 [facility] CBC W/PLT COUNT & AUTO 2021-09-02 06:03:00 Nia Lawrence [facility] COMPREHENSIVE METABOLIC 2021-09-02 06:03:[address] [facility] MAGNESIUM 2021-09-02 06:03:00 Nia Lawrencessa [facility] PHOSPHORUS 2021-09-02 06:03:00 [facility]-REACTIVE PROTEIN 2021-09-02 06:03:00 [facility] CBC W/PLT COUNT & AUTO 2021-09-02 06:03:00 Nia Lawrence [facility] (CELLAVISION MANUAL DIFF) 2021-09-02 06:03:00 Nia Lawrence [facility] IRON, TIBC, % SAT. 2021-09-02 06:01:[address] [facility] (WITHOUT FERRITIN) [facility] VIT[facility]IN B12 AND FOLATE 2021-09-02 06:01:[address] [facility] [facility] [address] [facility]RAIN WITHOUT IV 2021-09-02 02:39:[address] [facility] US ABDOMEN LIMITED 2021-09-02 02:09:00 Nia Lawrence [facility] URINE CULTURE 2021-09-02 01:29:00 Nia Lawrence [facility] URINALYSIS W/ REFLEX URINE 2021-09-02 01:29:00 Nia Lawrence [facility] XR CHEST 1 VIEW PORTABLE / 2021-09-02 01:02:00 Nia Lawrence [facility] CBC W/PLT COUNT & AUTO 2021-09-01 22:55:00 Nia Lawrence [facility] LACTIC ACID, VENOUS 2021-09-01 22:55:00 Nia Lawrence [facility] PT/APTT 2021-09-01 22:55:00 Nia Lawrence [facility] HEPATIC FUNCTION PANEL 2021-09-01 22:55:00 Nia Lawrence [facility] BASIC METABOLIC PANEL 2021-09-01 22:55:00 Nia Lawrence [facility] MAGNESIUM 2021-09-01 22:55:00 Nia Lawrence [facility] PHOSPHORUS 2021-09-01 22:55:00 Nia Lawrence [facility] CBC W/PLT COUNT & AUTO 2021-09-01 22:55:00 Nia Lawrence [facility] (CELLAVISION MANUAL DIFF) 2021-09-01 22:55:00 Nia Lawrence sa [facility] POCT-GLUCOSE METER 2021-09-01 22:36:00 Dawna Anguiano [facility] CT ABDOMEN PELVIS WO 2021-08-31 05:50:00 Moises Bro [facility] CONTRAST [facility] HC COMPLETE BLD COUNT 2021-08-31 04:21:00 Moises Bro [facility] W/AUTO DIFF [facility] COMPREHENSIVE METABOLIC 2021-08-31 04:21:00 [facility] LACTIC ACID, I-STAT 2021-08-31 04:21:00 Adali [facility] ESTIMATED GFR 2021-08-31 04:21:00 Adali [facility] SPIROMETRY, DIFFUSION, 2021-08-25 19:27:26 [facility] LUNG VOLUMES, MIPS/MEPS XR CHEST 2 VW 2021-08-25 18:00:20 [facility] XR PANOREX 2021-08-25 17:59:56 [facility] POC GLUCOSE 2021-08-25 13:51:00 Jennifer Ghosh Ho spital SALEEM-POSEY VIRUS 2021-08-25 11:08:00 [facility] ANTIBODY TEST HC COMPLETE BLD COUNT 2021-08-25 11:08:00 Jennifer Ghosh [facility] W/AUTO DIFF COMPREHENSIVE METABOLIC 2021-08-25 11:08:00 [facility]EL PROTHROMBIN TIME WITH INR 2021-08-25 11:08:00 Davina Jennifer [facility] ESTIMATED GFR 2021-08-25 11:08:00 Jennifer Ghosh spital POC GLUCOSE 2021-08-25 03:18:00 Jennifer Ghosh spital POC GLUCOSE 2021-08-25 00:22:00 Jennifer Ghosh spital POC GLUCOSE 2021-08-24 19:43:00 Jennifer Ghosh spital CREATININE LEVEL, URINE, 2021-08-24 18:13:00 Jennifer Ghosh [facility] TIMED PROTEIN, URINE, TIMED 2021-08-24 18:13:00 [facility] SELECTIVE CORONARY 2021-08-24 16:44:[address] [facility] ANGIOGRAPHY [place] HC COMPLETE BLD COUNT 2021-08-24 11:01:00 Ting Pierson [facility] W/AUTO DIFF [place] BASIC METABOLIC PANEL 2021-08-24 11:01:00 [facility] FUNCTION [facility]EL 2021-08-24 11:01:00 [facility] MAG[facility]UM LEVEL 2021-08-24 11:01:00 Jory Girard spiesteban [place] PROTHROMBIN TIME WITH INR 2021-08-24 11:01:00 [facility] [place] ESTIMATED GFR 2021-08-24 11:01:00 Jory Girardtal [place] POC GLUCOSE 2021-08-24 03:07:00 Jennifer Ghosh spital POC GLUCOSE 2021-08-24 00:11:00 Jennifer Ghosh COVID-19 QUALITATIVE 2021-08-23 22:15:00 Dayo Moeller [facility] RT-PCR POC GLUCOSE 2021-08-23 19:17:00 Jennifer Ghoshtal POC GLUCOSE 2021-08-23 14:05:00 Jennifer Ghosh HC COMPLETE BLD COUNT 2021-08-23 11:49:00 [facility] W/AUTO DIFF [facility] BASIC METABOLIC PANEL 2021-08-23 11:49:00 [facility] HEPATIC FUNCTION PANEL 2021-08-23 11:49:00 [facility] MAGNESIUM LEVEL 2021-08-23 11:49:00 Jory Girard [facility] PROTHROMBIN TIME WITH INR 2021-08-23 11:49:00 [facility] ALPHA FETOPROTEIN 2021-08-23 11:49:00 Mukesh [facility] ALPHA-1 ANTITRYPSIN LEVEL 2021-08-23 11:49:00 [facility] ANTI SMOOTH MUSCLE AB 2021-08-23 11:49:00 Mukesh [facility] SCREEN C-REACTIVE PROTEIN 2021-08-23 11:49:00 [facility] CANCER ANTIGEN 125 2021-08-23 11:49:00 [facility] CANCER ANTIGEN 19-9 2021-08-23 11:49:00 [facility] CARCINOEMBRYONIC ANTIGEN 2021-08-23 11:49:00 [facility] (CEA) CERULOPLASMIN LEVEL 2021-08-23 11:49:00 [facility] CORTISOL LEVEL, RANDOM 2021-08-23 11:49:00 [facility] CORTISOL, FREE BY 2021-08-23 11:49:00 [facility] ED/LC-MS/MS CYTOMEGALOVIRUS AB, IGG 2021-08-23 11:49:00 [facility] CYTOMEGALOVIRUS AB, IGM 2021-08-23 11:49:00 [facility] DRUG KIM 9, SER/THAIS, SCRN 2021-08-23 11:49:00 [facility] W/RFLX TO CONF FERRITIN LEVEL 2021-08-23 11:49:00 [facility] FIBRINOGEN 2021-08-23 11:49:00 [facility] HEPATITIS A ANTIBODY IGM 2021-08-23 11:49:00 [facility] HEPATITIS A ANTIBODY TOTAL 2021-08-23 11:49:00 [facility] HEPATITIS B CORE ANTIBODY 2021-08-23 11:49:00 [facility] TOTAL HEPATITIS B SURFACE 2021-08-23 11:49:00 [facility] ANTIBODY HEPATITIS B SURFACE 2021-08-23 11:49:00 [facility] ANTIGEN HEPATITIS C ANTIBODY 2021-08-23 11:49:00 [facility] HIV AG/AB COMBINATION 2021-08-23 11:49:00 [facility] HIV-1 RNA, QUALITATIVE TMA 2021-08-23 11:49:00 [facility] HLA TRANSPLANT EVALUATION 2021-08-23 11:49:00 [facility] LIPID PANEL 2021-08-23 11:49:00 [facility] BARBITURATES, S/P, QUANT 2021-08-23 11:49:00 [facility] PARTIAL THROMBOPLASTIN 2021-08-23 11:49:00 [facility] TIME (PTT) PHOSPHATIDYLETHANOL, BLOOD 2021-08-23 11:49:00 [facility] PHOSPHORUS LEVEL 2021-08-23 11:49:00 [facility] PREALBUMIN LEVEL 2021-08-23 11:49:00 [facility] SERUM ELECTROPHORESIS 2021-08-23 11:49:00 [facility] SYPHILIS TREPONEMA SCREEN 2021-08-23 11:49:00 [facility] WITH RPR CONFIRMATION (REVERSE ALGORITHM) T3, FREE 2021-08-23 11:49:00 [facility] TB T-SPOT 2021-08-23 11:49:00 [facility] TOTAL IRON BINDING 2021-08-23 11:49:00 [facility] CAPACITY ZINC LEVEL, SERUM 2021-08-23 11:49:00 [facility] ESTIMATED GFR 2021-08-23 11:49:00 Jory Girard [place] SINGLE ANTIGEN BEADS 2021-08-23 11:49:00 [facility] C1Q CLASS 1 & 2 ANTIBODY 2021-08-23 11:49:[address] [facility] [address] CHEST WO CONTRAST 2021-08-23 04:25:00 [facility] POC GLUCOSE 2021-08-23 02:55:00 Jennifer Ghosh US CAROTID DUPLEX 2021-08-23 02:40:00 [facility] BILATERAL TTE COMPLETE, WO CONTRAST, 2021-08-22 23:47:00 [facility] W AGITATED SALINE ([id number]) US ABDOMEN COMPLETE 2021-08-22 22:30:00 Calos Garcia [facility] ECG 12-LEAD 2021-08-22 21:31:09 Calos Garcia [facility] POC GLUCOSE 2021-08-22 13:43:00 Jennifer Ghosh Ho spital HC COMPLETE BLD COUNT 2021-08-22 10:59:00 [facility] Dangelo [facility]/AUTO DIFF [facility] BASIC METABOLIC PANEL 2021-08-22 10:59:00 Ting Dangelo [facility] HEPATIC FUNCTION PANEL 2021-08-22 10:59:00 [facility] [place] MAGNESIUM LEVEL 2021-08-22 10:59:00 Jory Girard Ho spital [place] PHOSPHORUS LEVEL 2021-08-22 10:59:00 [facility] PROT[facility] TIME WITH INR 2021-08-22 10:59:00 [facility] [place] ESTIMATED GFR 2021-08-22 10:59:00 Jory Girard [facility] POC GLUCOSE 2021-08-22 03:06:00 Jennifer Ghosh spital POC GLUCOSE 2021-08-22 00:27:00 Jennifer Ghosh spital POC GLUCOSE 2021-08-21 19:09:00 [facility] 2021-08-21 13:46:00 Jory Girard spital [place] HC COMPLETE BLD COUNT 2021-08-21 10:56:00 Ting Pierson [facility] DIFF [facility] BASIC METABOLIC PANEL 2021-08-21 10:56:00 Ting Pierson [facility] HEPATIC FUNCTION PANEL 2021-08-21 10:56:00 [facility] MAGN[facility]IUM LEVEL 2021-08-21 10:56:00 [facility] 2021-08-21 10:56:00 Jory Girard [facility] PROTHROMBIN TIME WITH INR 2021-08-21 10:56:00 [facility]FR 2021-08-21 10:56:00 Jory Girard spital [place] POC GLUCOSE 2021-08-21 03:20:00 Jory Girard spital [place] POC GLUCOSE 2021-08-20 14:56:00 Davina Jennifergeorge Corley Ho spital HC COMPLETE BLD COUNT 2021-08-20 10:57:00 Ting Pierson [facility] W/AUTO DIFF [facility] BASIC METABOLIC PANEL 2021-08-20 10:57:00 Ting Pierson [facility] HEPATIC FUNCTION PANEL 2021-08-20 10:57:00 [facility] L[facility]EL 2021-08-20 10:57:00 Jory Girard spital [place] PHOSPHORUS LEVEL 2021-08-20 10:57:00 Jory Girard ospital [place] PROTHROMBIN TIME WITH INR 2021-08-20 10:57:00 [facility] ESTIM[facility] 2021-08-20 10:57:00 Jory Girard spital [place] POC GLUCOSE 2021-08-20 02:42:00 Jory Girard spital [place] POC GLUCOSE 2021-08-19 20:04:00 Jory Girard spital [place] HC COMPLETE BLD COUNT 2021-08-19 11:38:00 Ting Pierson [facility]/AUTO DIFF [facility] BASIC METABOLIC PANEL 2021-08-19 11:38:00 Ting Pierson [facility] HEPATIC FUNCTION PANEL 2021-08-19 11:38:00 [facility] MAGNESIUM LEVEL 2021-08-19 11:38:00 Jory Girard spital [place] PHOSPHORUS LEVEL 2021-08-19 11:38:00 Jory Girard ospital [facility] PROTHROMBIN TIME WITH INR 2021-08-19 11:38:00 [facility]IM[facility] GFR 2021-08-19 11:38:00 Jory Girard spital [place] POC GLUCOSE 2021-08-19 03:14:00 Jory Girard Ho spital [place] POC GLUCOSE 2021-08-18 23:30:00 Ting Jory Pierson Ho spital [place] POC GLUCOSE 2021-08-18 15:37:00 Ting [facility] [place] URINE CULTURE 2021-08-18 12:53:00 [facility] Jory Pierson [place] URINALYSIS SCREEN AND 2021-08-18 11:31:00 [facility] MICROSCOPY, WITH REFLEX TO [facility] CULTURE LACTIC ACID LEVEL, SEPSIS 2021-08-18 10:21:00 Orlando Balderrama [facility] - NOW AND REPEAT 2X EVERY 3 HOURS HC COMPLETE BLD COUNT 2021-08-18 10:21:00 [facility] W/AUTO DIFF [facility] BASIC METABOLIC PANEL 2021-08-18 10:21:00 [facility] HEPATIC FUNCTION PANEL 2021-08-18 10:21:00 [facility] MAGNESIUM LEVEL 2021-08-18 10:21:00 [facility] 2021-08-18 10:21:00 Jory Girard ospiesteban Self PROTHROMBIN TIME WITH INR 2021-08-18 10:21:00 [facility] ESTIMATED GFR 2021-08-18 10:21:00 Ting Jory [facility]erson [facility] LACTIC ACID LEVEL, SEPSIS 2021-08-18 07:56:00 Orlando Balderrama [facility] - NOW AND REPEAT 2X EVERY 3 HOURS BLOOD CULTURE, AEROBIC & 2021-08-18 05:00:00 [facility] ANAEROBIC [facility] ECG 12-LEAD 2021-08-18 04:24:58 [facility] CT ABDOMEN PELVIS WO 2021-08-18 04:19:03 Con[facility]is [facility] CONTRAST CT HEAD WO CONTRAST 2021-08-18 04:18:21 [facility] LACTIC ACID LEVEL, SEPSIS 2021-08-18 03:37:00 [facility] - NOW AND REPEAT 2X EVERY 3 HOURS B NATRIURETIC PEPTIDE 2021-08-18 03:37:00 [facility] PROTHROMBIN TIME WITH INR 2021-08-18 03:20:00 [facility] AMMONIA LEVEL 2021-08-18 03:20:00 [facility] TROPONIN T 2021-08-18 03:20:00 [facility] XR CHEST 1 VW PORTABLE 2021-08-18 03:14:19 [facility] HC COMPLETE BLD COUNT 2021-08-18 03:03:00 [facility] W/AUTO DIFF COMPREHENSIVE METABOLIC 2021-08-18 03:03:00 [facility] PANEL ESTIMATED GFR 2021-08-18 03:03:00 [facility] RESPIRATORY PATHOGEN PANEL 2021-08-18 03:03:00 [facility] WITH COVID-19 RT-PCR ECG ED PRELIMINARY 2021-08-18 02:54:33 [facility] INTERPRETATION COVID-19 QUALITATIVE 2021-08-11 05:31:00 [facility] RT-PCR [facility] COMPREHENSIVE METABOLIC 2021-08-11 05:30:00 [facility] PANEL [facility] HC COMPLETE BLD COUNT 2021-08-11 05:30:00 [facility] W/AUTO DIFF [facility] LACTIC ACID, I-STAT 2021-08-11 05:30:00 [facility] ESTIMATED GFR 2021-08-11 05:30:00 [facility] 2021-08-11 05:15:35 Adali, [facility] URINALYSIS 2021-08-11 05:00:00 Adali, [facility] XR CHEST 1 VW PORTABLE 2021-08-11 04:27:00 Adali [facility] LACTIC ACID, I-STAT 2021-06-28 22:37:00 Romero Limon [facility] [place] URINALYSIS 2021-06-28 21:45:00 Romero Limon shane HC COMPLETE BLD COUNT 2021-06-28 20:01:00 Romero Limon [facility] W/AUTO DIFF PROTHROMBIN TIME WITH INR, 2021-06-28 20:01:[address] [facility] I-STAT COMPREHENSIVE METABOLIC 2021-06-28 20:01:00 Romero Limon [facility] PANEL LACTIC ACID, I-STAT 2021-06-28 20:01:00 Romero Limon [facility] [place] SEDIMENTATION RATE 2021-06-28 20:01:00 Romero Limon [facility] ESTIMATED GFR 2021-06-28 20:01:00 Romero Limon shane COVID-19 QUALITATIVE 2021-06-28 20:01:00 Romero Limon [facility] RT-PCR BLOOD CULTURE, AEROBIC & 2021-06-28 20:01:00 Romero Limon [facility] ANAEROBIC HC COMPLETE BLD COUNT 2021-06-21 11:20:00 Dinakar [facility] W/AUTO DIFF [place] BASIC METABOLIC PANEL 2021-06-21 11:20:00 Dinakar [facility] HEPATIC FUNCTION PANEL 2021-06-21 11:20:00 Dinakar [facility] MAGNESIUM LEVEL 2021-06-21 11:20:00 Dinholleyr [facility] PROTHROMBIN TIME WITH INR 2021-06-21 11:20:00 Dinakar, [facility] PHOSPHORUS LEVEL 2021-06-21 11:20:00 Dinakar, [facility] [place] ESTIMATED GFR 2021-06-21 11:20:00 Dinakar, Pierce Cisneros PHOSPHATIDYLETHANOL, BLOOD 2021-06-21 11:20:00 [facility] URINE DRUGS OF ABUSE 2021-06-21 10:11:00 [facility] SCREEN URINALYSIS SCREEN AND 2021-06-21 10:10:00 [facility] MICROSCOPY, WITH REFLEX TO CULTURE URINE CULTURE 2021-06-21 10:10:00 [facility] COVID-19 SEROLOGY PATIENT 2021-06-20 17:52:00 Dinakar, [facility] SURVEILLANCE [facility] COVID-19 ANTI-SPIKE IGG 2021-06-20 17:52:00 Dinakar, [facility] ANTIBODY TITER [facility] HC COMPLETE BLD COUNT 2021-06-20 11:03:00 Dinakar, [facility] W/AUTO DIFF [facility] BASIC METABOLIC PANEL 2021-06-20 11:03:00 Dinakar, [facility] HEPATIC FUNCTION PANEL 2021-06-20 11:03:00 Dinakar, [facility] MAGNESIUM LEVEL 2021-06-20 11:03:00 Dinholleyr, Pierce Corley shane Cisneros PROTHROMBIN TIME WITH INR 2021-06-20 11:03:00 Dinakar, [facility] PHOSPHORUS LEVEL 2021-06-20 11:03:00 Dinakar, Pierce Corley ospiesteban Lopezra ESTIMATED GFR 2021-06-20 11:03:00 DinPierce wallace XR ABDOMEN 1 VW PORTABLE 2021-06-20 00:11:00 [facility] AMMONIA LEVEL 2021 11:27:00 Jennifer Ghosh shane HC COMPLETE BLD COUNT 2021 11:24:00 Li, [facility] W/AUTO DIFF PROTHROMBIN TIME WITH INR 2021 11:24:[address] [facility] METABOLIC 2021 11:24:00 Jennifer Ghosh [facility] PANEL PHOSPHORUS LEVEL 2021 11:24:00 Jennifer Ghosh [facility] MAGNESIUM LEVEL 2021 11:24:00 DavinaJennifer [facility] HEMOGLOBIN A1C 2021 11:24:00 Davina Jennifer [facility] THYROID STIMULATING 2021 11:24:00 [facility] HORMONE T4 2021 11:24:00 Jennifer Ghosh [facility] VITAMIN D 25 HYDROXY LEVEL 2021 11:24:00 [facility] ESTIMATED GFR 2021 11:24:00 Davina Jennifer [facility] LACTIC ACID, I-STAT 2021 01:31:00 [facility] QUALITATIVE 2021 01:21:00 Diana Bangura [facility] RT-PCR CLOSTRIDIUM DIFFICILE 2021 00:30:00 Diana Bangura [facility] TOXIN ENTERIC BACTERIAL PANEL 2021 00:30:00 [facility] 2021 00:09:00 Diana Bangura [facility] METABOLIC 2021-06-18 22:51:00 [facility] PANEL AMYLASE LEVEL 2021-06-18 22:51:00 Diana Bangura [facility] ESTIMATED GFR 2021-06-18 22:51:00 [facility] Diana [facility] HC COMPLETE BLD COUNT 2021-06-18 21:51:[address] [facility] W/AUTO DIFF [facility] 2021-06-18 21:51:00 [facility] PANEL LACTIC ACID, I-STAT 2021-06-18 21:51:00 [facility] AMYLASE LEVEL 2021-06-18 21:51:00 Diana Bangura [facility] ESTIMATED GFR 2021-06-18 21:51:00 Diana Bangura Bin [facility] AMMONIA LEVEL 2021-06-18 21:47:00 Diana Bangura [facility] HC COMPLETE BLD COUNT 2021-06-02 09:45:00 [facility] W/AUTO DIFF PROTHROMBIN TIME WITH INR 2021-06-02 09:45:00 [facility] BASIC METABOLIC PANEL 2021-06-02 09:45:00 [facility] HEPATIC FUNCTION PANEL 2021-06-02 09:45:00 [facility] PHOSPHORUS LEVEL 2021-06-02 09:45:00 [facility] MAGNESIUM LEVEL 2021-06-02 09:45:00 [facility] ESTIMATED GFR 2021-06-02 09:45:00 [facility] US ABDOMINAL LIMITED 2021-06-01 21:06:20 Joana Ling [facility] VENIPUNC NEED PHYS 2021-06-01 14:32:45 Linda Torres [facility] SKILL,DX OR RX HC COMPLETE BLD COUNT 2021-06-01 10:30:00 [facility] W/AUTO DIFF PROTHROMBIN TIME WITH INR 2021-06-01 10:30:00 [facility] BASIC METABOLIC PANEL 2021-06-01 10:30:00 [facility] HEPATIC FUNCTION PANEL 2021-06-01 10:30:00 [facility] PHOSPHORUS LEVEL 2021-06-01 10:30:00 [facility] MAGNESIUM LEVEL 2021-06-01 10:30:00 [facility] HEMOGLOBIN A1C 2021-06-01 10:30:00 [facility] THYROID STIMULATING 2021-06-01 10:30:00 [facility] HORMONE T4 2021-06-01 10:30:00 [facility] VITAMIN D 25 HYDROXY LEVEL 2021-06-01 10:30:00 [facility] ZINC LEVEL, SERUM 2021-06-01 10:30:00 [facility] ALPHA FETOPROTEIN 2021-06-01 10:30:00 [facility] AMMONIA LEVEL 2021-06-01 10:30:00 [facility] ESTIMATED GFR 2021-06-01 10:30:00 [facility] PHOSPHATIDYLETHANOL, BLOOD 2021-06-01 10:30:00 [facility] URINE CULTURE 2021-06-01 02:48:00 [facility] BLOOD CULT[facility], AEROBIC & 2021-06-01 02:43:00 [facility] ANAEROBIC BLOOD CULTURE, AEROBIC & 2021-06-01 02:42:00 [facility] ANAEROBIC URINALYSIS SCREEN AND 2021-06-01 02:40:00 [facility] MICROSCOPY, WITH REFLEX TO CULTURE URINE DRUGS OF ABUSE 2021-06-01 02:40:00 [facility] SCREEN URIC ACID LEVEL 2021-06-01 02:38:00 [facility] PROTHROMBIN TIME WITH INR 2021-06-01 02:38:00 [facility] PHOSPHORUS LEVEL 2021-06-01 02:38:00 [facility] PARTIAL THROMBOPLASTIN 2021-06-01 02:38:00 [facility] TIME (PTT) MAGNESIUM LEVEL 2021-06-01 02:38:00 [facility] HEPATIC FUNCTION PANEL 2021-06-01 02:38:00 [facility] LDH 2021-06-01 02:38:00 [facility] LACTIC ACID LEVEL 2021-06-01 02:38:00 Chela [facility] FIBRINOGEN 2021-06-01 02:38:00 Chela [facility] ospital HC COMPLETE BLD COUNT 2021-06-01 02:38:00 Chela [facility] W/AUTO DIFF BASIC METABOLIC PANEL 2021-06-01 02:38:00 [facility] AMMONIA LEVEL 2021-06-01 02:38:00 Chela [facility] ospital ESTIMATED GFR 2021-06-01 02:38:00 Chela [facility] ospital COVID-19 SEROLOGY PATIENT 2021-06-01 02:38:00 Chela [facility] SURVEILLANCE COVID-19 ANTI-SPIKE IGG 2021-06-01 02:38:00 Chela [facility] ANTIBODY TITER ECG 12-LEAD 2021-06-01 01:06:10 Chela [facility] ospital XR ABDOMEN 1 VW PORTABLE 2021-06-01 01:06:00 Chela [facility] XR CHEST 1 VW PORTABLE 2021-06-01 01:02:00 Chela [facility] COVID-19 QUALITATIVE 2021-06-01 00:37:00 Chela [facility] RT-PCR HC COMPLETE BLD COUNT 2021-05-27 10:09:00 Ting Dangelo [facility] W/AUTO DIFF [facility] BASIC METABOLIC PANEL 2021-05-27 10:09:00 [facility] [place] HEPATIC FUNCTION PANEL 2021-05-27 10:09:00 [facility] [place] MAGNESIUM LEVEL 2021-05-27 10:09:00 Jory Girard spital [place] PHOSPHORUS LEVEL 2021-05-27 10:09:00 Ting Jory Pierson ospital [facility] PROTHROMBIN TIME WITH INR 2021-05-27 10:09:00 [facility] [place] ESTIMATED GFR 2021-05-27 10:09:00 Jory Girard VENOUS BLOOD GAS 2021-05-26 23:37:00 Nia Faustin COMPLETE BLD COUNT 2021-05-26 09:02:00 [facility] W/AUTO DIFF [place] PROTHROMBIN TIME WITH INR 2021-05-26 09:02:00 [facility]-19 SEROLOGY PATIENT 2021-05-26 09:02:00 Abe Partida [facility] SURVEILLANCE Tom SMEAR REVIEW 2021-05-26 09:02:00 Jory Girard PHOSPHATIDYLETHANOL, BLOOD 2021-05-26 09:02:00 Palak Mayorga [facility]-19 ANTI-SPIKE IGG 2021-05-26 09:02:00 Abe Partida [facility] ANTIBODY TITER Tom BASIC METABOLIC PANEL 2021-05-26 09:00:00 [facility] 2021-05-26 09:00:00 [facility] MAGNESIUM LEVEL 2021-05-26 09:00:00 Jory Girard PHOSPHORUS LEVEL 2021-05-26 09:00:00 Jory Girard ALPHA FETOPROTEIN 2021-05-26 09:00:00 Emma [facility] ZINC LEVEL, SERUM 2021-05-26 09:00:00 Emma [facility] ESTIMATED GFR 2021-05-26 09:00:00 Jory Girard URINALYSIS SCREEN AND 2021-05-25 23:41:00 [facility] MICROSCOPY, WITH REFLEX TO [place] CULTURE URINE DRUGS OF ABUSE 2021-05-25 23:41:00 [facility] [place] URINE CULTURE 2021-05-25 23:41:00 Jory Girard US HEPATIC 2021-05-25 20:43:26 [facility] ABDOMINAL DOPPLER 2021-05-25 20:40:00 Ting Dangelo [facility] HC COMPLETE BLD COUNT 2021-05-25 18:10:00 Ting Pierson [facility] W/AUTO DIFF [place] SMEAR REVIEW 2021-05-25 18:10:00 Jory Girard [facility] VENIPUNC NEED PHYS 2021-05-25 15:59:39 Tristin Hunt [facility] SKILL,DX OR RX CBC WITH PLATELET AND 2021-05-25 13:57:00 [facility] DIFFERENTIAL [place] COMPREHENSIVE METABOLIC 2021-05-25 13:57:00 [facility] [place] ESTIMATED GFR 2021-05-25 13:57:00 Jory Girard [facility] LACTIC ACID, I-STAT 2021-05-25 00:58:00 Romero Limon [facility] [place] COVID-19 QUALITATIVE 2021-05-25 00:00:00 Romero Limon [facility] RT-PCR CT ABDOMEN PELVIS WO 2021-05-24 23:16:57 Romero iLmon [facility] CONTRAST URINALYSIS 2021-05-24 22:19:00 Romero Limon HC COMPLETE BLD COUNT 2021-05-24 22:13:00 Romero Limon [facility] W/AUTO DIFF COMPREHENSIVE METABOLIC 2021-05-24 22:13:00 Romero Limon [facility] PANEL AMYLASE LEVEL 2021-05-24 22:13:00 [facility] 2021-05-24 22:13:00 Romero Limon [facility] [place] ESTIMATED GFR 2021-05-24 22:13:00 Romero Limon shane BLOOD CULTURE, AEROBIC & 2021-05-24 22:00:00 Romero Limon [facility] ANAEROBIC CBC HEMOGRAM 2020-11-23 05:55:00 [facility] PROT[facility] TIME WITH INR 2020-11-23 05:55:00 [facility] COMPREHENSIVE METABOLIC 2020-11-23 05:55:00 [facility] PANEL [place] ESTIMATED GFR 2020-11-23 05:55:00 Ting Jory Pierson [facility] COVID-19 QUALITATIVE 2020-11-23 01:57:00 Fermín, Wild [facility] RT-PCR [place] LACTIC ACID, I-STAT 2020-11-23 01:40:00 Romero Limon [facility] [place] CT HEAD WO CONTRAST 2020-11-22 23:20:00 Romero Limon [facility] [place] HC COMPLETE BLD COUNT 2020-11-22 22:53:00 Romero Limon [facility] W/AUTO DIFF COMPREHENSIVE METABOLIC 2020-11-22 22:53:00 Romero Limon [facility] PANEL LACTIC ACID, I-STAT 2020-11-22 22:53:00 Romero Limon [facility] [place] [facility] AMMONIA LEVEL 2020-11-22 22:53:00 [facility] 2020-11-22 22:53:00 Romero Limon H ospital ESTIMATED GFR 2020-11-22 22:53:00 Romero Limon spital XR ABDOMEN ACUTE INC CHEST 2020-11-02 22:51:00 Cliff Levy [facility] 1V ESTIMATED GFR 2020-11-02 21:55:00 Calos Garcia [facility] HC COMPLETE BLD COUNT 2020-11-02 21:55:00 Calos Garcia [facility] W/AUTO DIFF COMPREHENSIVE METABOLIC 2020-11-02 21:55:00 Calos Garcia [facility] PANEL PROTHROMBIN TIME WITH INR 2020-11-02 21:55:00 Calos Garcia [facility] COVID-19 QUALITATIVE 2020-11-02 21:05:00 Galati, [facility] NM BRAIN SPECT W I 123 2020-10-26 19:02:[address] [facility] DATSCAN HC COMPLETE BLD COUNT 2020-10-24 10:15:00 [facility] W/AUTO DIFF BASIC METABOLIC PANEL 2020-10-24 10:15:00 [facility] HEPATIC FUNCTION PANEL 2020-10-24 10:15:00 [facility] MAGNESIUM LEVEL 2020-10-24 10:15:00 [facility] PHOSPHORUS LEVEL 2020-10-24 10:15:00 [facility] PROTHROMBIN TIME WITH INR 2020-10-24 10:15:00 [facility] HEMOGLOBIN A1C 2020-10-24 10:15:00 [facility] THYROID STIMULATING 2020-10-24 10:15:00 [facility] HORMONE T4 2020-10-24 10:15:00 [facility] VITAMIN D 25 HYDROXY LEVEL 2020-10-24 10:15:00 [facility] ZINC LEVEL, SERUM 2020-10-24 10:15:00 [facility] ALPHA FETOPROTEIN 2020-10-24 10:15:00 [facility] ESTIMATED GFR 2020-10-24 10:15:00 [facility] URINE DRUGS OF ABUSE 2020-10-24 10:00:00 [facility] SCREEN LACTIC ACID LEVEL, SEPSIS 2020-10-24 06:20:00 [facility] - NOW AND REPEAT 2X EVERY 3 HOURS LACTIC ACID LEVEL, SEPSIS 2020-10-24 02:25:00 [facility] - NOW AND REPEAT 2X EVERY 3 HOURS XR CHEST 1 VW PORTABLE 2020-10-24 00:08:00 Adelerer, [facility] BLOOD CULTURE, AEROBIC & 2020-10-23 23:31:00 Rehrer, [facility] ANAEROBIC RESPIRATORY PATHOGEN PANEL 2020-10-23 23:31:00 Rehrer, [facility] WITH COVID-19 RT-PCR COMPREHENSIVE METABOLIC 2020-10-23 23:31:00 Rehrer, [facility] PANEL PHOSPHORUS LEVEL 2020-10-23 23:31:00 Rehrer, [facility] MAGNESIUM LEVEL 2020-10-23 23:31:00 Rehrer, [facility] LACTIC ACID LEVEL, SEPSIS 2020-10-23 23:31:[address] [facility] - NOW AND REPEAT 2X EVERY 3 HOURS LIPASE LEVEL 2020-10-23 23:31:00 Rehrer, [facility] ESTIMATED GFR 2020-10-23 23:31:00 Rehrer, [facility] HC COMPLETE BLD COUNT 2020-10-23 23:20:00 Rehrer, [facility] W/AUTO DIFF PROTHROMBIN TIME WITH INR 2020-10-23 23:20:00 Rehrer, [facility] PARTIAL THROMBOPLASTIN 2020-10-23 23:20:00 Rehrer, [facility] TIME (PTT) AMMONIA LEVEL 2020-10-23 23:20:00 Rehrer, [facility] HC COMPLETE BLD COUNT 2020-10-10 00:05:00 [facility] W/AUTO DIFF COMPREHENSIVE METABOLIC 2020-10-10 00:05:00 [facility] PANEL LACTIC ACID, I-STAT 2020-10-10 00:05:00 [facility] AMMONIA LEVEL 2020-10-10 00:05:00 [facility]Raym[facility] ESTIMATED GFR 2020-10-10 00:05:00 [facility] URINALYSIS 2020-10-09 23:32:00 Azevedo, [facility] ECG 12-LEAD 2020-10-09 23:18:11 Azevedo [facility] HC COMPLETE BLD COUNT 2020-09-21 10:28:00 [facility] W/AUTO DIFF BASIC METABOLIC PANEL 2020-09-21 10:28:00 [facility] HEPATIC FUNCTION PANEL 2020-09-21 10:28:00 [facility] MAGNESIUM LEVEL 2020-09-21 10:28:00 [facility] PHOSPHORUS LEVEL 2020-09-21 10:28:00 [facility] PROTHROMBIN TIME WITH INR 2020-09-21 10:28:00 [facility] MISCELLANEOUS REFERRAL 2020-09-21 10:28:00 [facility] TEST VITAMIN B12 LEVEL 2020-09-21 10:28:00 [facility] FOLATE LEVEL 2020-09-21 10:28:00 [facility] ESTIMATED GFR 2020-09-21 10:28:00 [facility] COVID-19 QUALITATIVE 2020-09-20 20:51:00 Robby Perez [facility] RT-PCR Gabriel HC COMPLETE BLD COUNT 2020-09-20 12:08:00 [facility] W/AUTO DIFF BASIC METABOLIC PANEL 2020-09-20 12:08:00 [facility] HEPATIC FUNCTION PANEL 2020-09-20 12:08:00 [facility] MAGNESIUM LEVEL 2020-09-20 12:08:00 [facility] PHOSPHORUS LEVEL 2020-09-20 12:08:00 [facility] PROTHROMBIN TIME WITH INR 2020-09-20 12:08:00 [facility] HEMOGLOBIN A1C 2020-09-20 12:08:00 [facility] ospital THYROID STIMULATING 2020-09-20 12:08:00 [facility] HORMONE T4 2020-09-20 12:08:00 [facility], [facility] ospital VITAMIN D 25 HYDROXY LEVEL 2020-09-20 12:08:00 [facility] ZINC LEVEL, SERUM 2020-09-20 12:08:00 [facility] ALPHA FETOPROTEIN 2020-09-20 12:08:00 [facility] ESTIMATED GFR 2020-09-20 12:08:[address] [facility] [facility] CERVICAL SPINE WO 2020-09-20 06:50:26 Marcel [facility] CONTRAST Renee CT PELVIS WO CONTRAST 2020-09-20 06:50:16 Marcel [facility] CT HEAD WO CONTRAST 2020-09-20 06:50:07 [facility] [place] [facility]/M 2020-09-20 04:05:41 Marcel [facility] 30-74 MINUTES [place] URINE CULTURE 2020-09-20 04:00:00 Bonny Rod spital [place] URINALYSIS SCREEN AND 2020-09-20 04:00:00 Marcel [facility] MICROSCOPY, WITH REFLEX TO [place]e CULTURE URINE DRUGS OF ABUSE 2020-09-20 04:00:00 [facility] [place] MAGNESIUM LEVEL 2020-09-20 04:00:00 Bonny Rod Ho spital [place] TROPONIN 2020-09-20 04:00:00 Bonny Rod Ho spital [place] XR KNEE 3 VW LEFT 2020-09-20 02:06:29 Marcel [facility] Renee XR KNEE 3 VW RIGHT 2020-09-20 02:06:09 Marcel [facility] [place] XR SHOULDER 2+ VW RIGHT 2020-09-20 02:05:46 [facility] COM[facility] 2020-09-20 02:05:00 [facility]FF [facility] PROTHROMBIN TIME WITH INR 2020-09-20 02:05:00 Bonny Rod [facility] PARTIAL THROMBOPLASTIN 2020-09-20 02:05:00 Bonny Rod [facility] TIME (PTT) [facility] COMPREHENSIVE METABOLIC 2020-09-20 02:05:00 [facility] [place] TROPONIN 2020-09-20 02:05:00 Bonny Rod shane Duran B NATRIURETIC PEPTIDE 2020-09-20 02:05:00 Bonny Rod [facility] AMMONIA LEVEL 2020-09-20 02:05:00 Bonny Rod shane [place] ALCOHOL LEVEL, BLOOD 2020-09-20 02:05:00 [facility] 2020-09-20 02:05:00 Bonny Rod spital [place] Plan of Care Planned Activity Planned Date Details Comments Source Future Scheduled 2024-08-23 Lipid panel (procedure) [facility] 00:00:00 [code = 39796774] Medical Ce nter Future Scheduled 2024-08-23 Lipid panel (procedure) [facility] 00:00:00 [code = 81300938] Medical Ce nter Future Scheduled 2024-08-23 Lipid panel (procedure) [facility] 00:00:00 [code = 11672170] Medical Ce nter Future Scheduled 2024-08-23 Lipid panel (procedure) [facility] 00:00:00 [code = [id number]] Medical Ce nter Future Scheduled 2024-08-23 Lipid panel (procedure) [facility] 00:00:00 [code = 95314993] Medical Ce nter Future Scheduled 2024-08-23 Lipid panel (procedure) [facility] 00:00:00 [code = [id number]] Medical Ce nter Future Scheduled 2024-08-23 Lipid panel (procedure) [facility] 00:00:00 [code = 03758414] Medical Ce nter Future Scheduled 2024-08-23 Lipid panel (procedure) [facility] 00:00:00 [code = [id number]] Medical Ce nter Future Scheduled 2024-08-23 Lipid panel (procedure) [facility] 00:00:00 [code = 62721440] Medical Ce nter Future Scheduled 2024-08-23 Lipid panel (procedure) [facility] 00:00:00 [code = 63824161] Medical Ce nter Future Scheduled 2024-08-23 Lipid panel (procedure) [facility] 00:00:00 [code = 22984798] Medical Ce nter Future Scheduled 2023-04-12 INFLUENZA [...] (#1)] Future Scheduled 2021-09-12 BREAST CANCER SCREENING [facility] 12:13:11 [code = BREAST CANCER Hospit al SCREENING] Future Scheduled 2021-09-12 COVID-19 VACCINE (2 - [facility] 12:13:11 [facility] series) [code = COVID-19 VACCINE (2 - [facility] for [facility] series)] Future Scheduled 2021-09-12 INFLUENZA VACCINE [code = [facility] 12:13:11 INFLUENZA VACCINE] Hospital Future Scheduled 2021-09-12 Screening for malignant [facility] 12:13:11 neoplasm of cervix Hospital (procedure) [code = [id number]] Future Scheduled 2021-08-[address] [facility] Future Scheduled 2011 [...] [facility] 00:00:00 [code = 08910794] Medical Ce nter Future Scheduled 1982 Screening for malignant [facility] Test 00:00:00 neoplasm of cervix Medical C enter (procedure) [code = 587137228] Future Scheduled 1982 Screening for malignant [facility] Test 00:00:00 neoplasm of cervix Medical C enter (procedure) [code = 068838562] Future Scheduled 1982 Screening for malignant [facility] Test 00:00:00 neoplasm of cervix Medical C enter (procedure) [code = 933663261] Future Scheduled 1982 Screening for malignant [facility] Test 00:00:00 neoplasm of cervix Medical C enter (procedure) [code = 810403171] Future Scheduled 1982 Screening for malignant [facility] Test 00:00:00 neoplasm of cervix Medical C enter (procedure) [code = 641577076] Future Scheduled 1982 Screening for malignant [facility] Test 00:00:00 neoplasm of cervix Medical C enter (procedure) [code = 376025489] Future Scheduled 1982 Screening for malignant [facility] Test 00:00:00 neoplasm of cervix Medical C enter (procedure) [code = 777137953] Future Scheduled 1982 Screening for malignant [facility] 00:00:00 neoplasm of cervix Medical C enter (procedure) [code = 072945176] Future Scheduled 1982 Screening for malignant [facility] 00:00:00 neoplasm of cervix Medical C enter (procedure) [code = 690769444] Future Scheduled 1982 Screening for malignant [facility] 00:00:00 neoplasm of cervix Medical C enter (procedure) [code = 453243242] Future Scheduled 1982 Screening for malignant [facility] 00:00:00 neoplasm of cervix Medical C enter (procedure) [code = 810477507] Future Scheduled 1982 Screening for malignant [facility] 00:00:00 neoplasm of cervix Medical C enter (procedure) [code = 058610835] Future Scheduled 1980 DTAP/TDAP/TD VACCINES (1 [facility] [...] screening [facility] (procedure) [code = 174618376] Future Scheduled [address] [facility]00 virus screening [facility] (procedure) [code = 607863865] Future Scheduled [address] [facility] 00:[facility]:00 virus screening [facility] (procedure) [code = 974054465] Future Scheduled [address] [facility] 00:[facility]:00 virus screening [facility] (procedure) [code = 862108921] Future Scheduled [address] [facility] 00:[facility]:00 virus screening [facility] (procedure) [code = 179376722] Future Scheduled [address] [facility] 00:00:00 virus screening [facility] (procedure) [code = 833323407] Future Scheduled 1973 COVID-19 VACCINE (1) [facility] [...] breast Medical C enter (procedure) [code = 478634212] Future Scheduled 1961 Screening for malignant [facility] 00:00:00 neoplasm of colon Medical Ce nter (procedure) [code = 143549091] Future Scheduled 1961 Screening for malignant [facility] 00:00:00 neoplasm of breast Medical C enter (procedure) [code = 342358543] Future Scheduled 1961 CT Colonography (combo) [facility] 00:00:00 [code = CT Colonography [facility] (combo)] Future Scheduled 1961 Screening for malignant [facility] 00:00:00 neoplasm of colon Medical Ce nter (procedure) [code = 857080945] Future Scheduled 1961 Screening for malignant [facility] 00:00:00 neoplasm of colon Medical Ce nter (procedure) [code = 347999803] Future Scheduled 1961 Screening for malignant [facility] 00:00:00 neoplasm of colon Medical Ce nter (procedure) [code = 087087137] Future Scheduled 1961 Screening for malignant [facility] 00:00:00 neoplasm of colon Medical Ce nter (procedure) [code = 473217614] Future Scheduled 1961 [facility]oidoscopy [facility] Medical Cente r Future Scheduled 1961 Screening for malignant [facility] 00:00:00 neoplasm of breast Medical C enter (procedure) [code = 848301595] Future Scheduled 1961 CT Colonography (combo) [facility] 00:00:00 [code = CT Colonography [facility] (combo)] Future Scheduled 1961 Screening for malignant [facility] 00:00:00 neoplasm of colon Medical Ce nter (procedure) [code = 184583086] Future Scheduled 1961 Screening for malignant [facility] 00:00:00 neoplasm of colon Medical Ce nter (procedure) [code = 145668514] Future Scheduled 1961 Screening for malignant [facility] 00:00:00 neoplasm of colon Medical Ce nter (procedure) [code = 458552632] Future Scheduled 1961 Screening for malignant [facility] 00:00:00 neoplasm of colon Medical Ce nter (procedure) [code = 857478110] Future Scheduled 1961 S[facility]oidoscopy [facility]] Medical Cente r Future Scheduled 1961 Screening for malignant [facility] 00:00:00 neoplasm of breast Medical C enter (procedure) [code = 703237677] Future Scheduled 1961 CT Colonography (combo) [facility] 00:00:00 [code = CT Colonography [facility] (combo)] Future Scheduled 1961 Screening for malignant [facility] 00:00:00 neoplasm of colon Medical Ce nter (procedure) [code = 248836339] Future Scheduled 1961 Screening for malignant [facility] 00:00:00 neoplasm of colon Medical Ce nter (procedure) [code = 789263242] Future Scheduled 1961 Screening for malignant [facility] 00:00:00 neoplasm of colon Medical Ce nter (procedure) [code = 263472283] Future Scheduled 1961 Screening for malignant [facility] 00:00:00 neoplasm of colon Medical Ce nter (procedure) [code = 334106766] Future Scheduled 1961 [facility]oidoscopy [facility]] Medical Cente r Future Scheduled 1961 Screening for malignant [facility] 00:00:00 neoplasm of breast Medical C enter (procedure) [code = 122817966] Future Scheduled 1961 CT Colonography (combo) [facility] 00:00:00 [code = CT Colonography [facility]i [facility]j Center (combo)] Future Scheduled 1961 Screening for malignant [facility] 00:00:00 neoplasm of colon Medical Ce nter (procedure) [code = 727299748] Future Scheduled 1961 Screening for malignant [facility] 00:00:00 neoplasm of colon Medical Ce nter (procedure) [code = 106545033] Future Scheduled 1961 Screening for malignant [facility] 00:00:00 neoplasm of colon Medical Ce nter (procedure) [code = 854453964] Future Scheduled 1961 Screening for malignant [facility] 00:00:00 neoplasm of colon Medical Ce nter (procedure) [code = 374034930] Future Scheduled 1961 [facility]oidoscopy [facility]] Medical Cente r Future Scheduled 1961 Screening for malignant [facility] 00:00:00 neoplasm of breast Medical C enter (procedure) [code = 464190602] Future Scheduled 1961 CT Colonography (combo) [facility] 00:00:00 [code = CT Colonography [facility]i [facility] (combo)] Future Scheduled 1961 Screening for malignant [facility] 00:00:00 neoplasm of colon Medical Ce nter (procedure) [code = 119511537] Future Scheduled 1961 Screening for malignant [facility] 00:00:00 neoplasm of colon Medical Ce nter (procedure) [code = 620963158] Future Scheduled 1961 Screening for malignant [facility] 00:00:00 neoplasm of colon Medical Ce nter (procedure) [code = 337391326] Future Scheduled 1961 Screening for malignant [facility] 00:00:00 neoplasm of colon Medical Ce nter (procedure) [code = 845394656] Future Scheduled 1961 [facility]oidoscopy [facility]] Medical Cente r Future Scheduled 1961 Screening for malignant [facility] 00:00:00 neoplasm of breast Medical C enter (procedure) [code = 921720847] Future Scheduled 1961 CT Colonography (combo) [facility] 00:00:00 [code = CT Colonography [facility] Center (combo)] Future Scheduled 1961 Screening for malignant [facility] 00:00:00 neoplasm of colon Medical Ce nter (procedure) [code = 568703668] Future Scheduled 1961 Screening for malignant [facility] 00:00:00 neoplasm of colon Medical Ce nter (procedure) [code = 720218664] Future Scheduled 1961 Screening for malignant [facility] 00:00:00 neoplasm of colon Medical Ce nter (procedure) [code = 779425979] Future Scheduled 1961 Screening for malignant [facility] 00:00:00 neoplasm of colon Medical Ce nter (procedure) [code = 196260053] Future Scheduled 1961 S[facility]oidoscopy [facility]code [facility]] Medical Cente r Future Scheduled 1961 Screening for malignant [facility] 00:00:00 neoplasm of breast Medical C enter (procedure) [code = 760389268] Future Scheduled 1961 CT Colonography (combo) [facility] 00:00:00 [code = CT Colonography Medi cj Center (combo)] Future Scheduled 1961 Screening for malignant [facility] 00:00:00 neoplasm of colon Medical Ce nter (procedure) [code = 897063875] Future Scheduled 1961 Screening for malignant [facility] 00:00:00 neoplasm of colon Medical Ce nter (procedure) [code = 473009030] Future Scheduled 1961 Screening for malignant [facility] 00:00:00 neoplasm of colon Medical Ce nter (procedure) [code = 777289894] Future Scheduled 1961 Screening for malignant [facility] 00:00:00 neoplasm of colon Medical Ce nter (procedure) [code = 743432315] Future Scheduled 1961 S[facility]oidoscopy [facility]] Medical Cente r Future Scheduled 1961 Screening for malignant [facility] 00:00:00 neoplasm of breast Medical C enter (procedure) [code = 216180573] Future Scheduled 1961 CT Colonography (combo) [facility] 00:00:00 [code = CT Colonography Medi [facility]j Center (combo)] Future Scheduled 1961 Screening for malignant [facility] 00:00:00 neoplasm of colon Medical Ce nter (procedure) [code = 202786271] Future Scheduled 1961 Screening for malignant [facility] 00:00:00 neoplasm of colon Medical Ce nter (procedure) [code = 045604306] Future Scheduled 1961 Screening for malignant [facility] 00:00:00 neoplasm of colon Medical Ce nter (procedure) [code = 516354648] Future Scheduled 1961 Screening for malignant [facility] 00:00:00 neoplasm of colon Medical Ce nter (procedure) [code = 885951246] Future Scheduled 1961 S[facility]oidoscopy [facility]] Medical Cente r Future Scheduled 1961 Screening for malignant [facility] 00:00:00 neoplasm of breast Medical C enter (procedure) [code = 692706687] Future Scheduled 1961 CT Colonography (combo) [facility] 00:00:00 [code = CT Colonography Medi [facility]j Center (combo)] Future Scheduled 1961 Screening for malignant [facility] 00:00:00 neoplasm of colon Medical Ce nter (procedure) [code = 298011824] Future Scheduled 1961 Screening for malignant [facility] 00:00:00 neoplasm of colon Medical Ce nter (procedure) [code = 290753020] Future Scheduled 1961 Screening for malignant [facility] 00:00:00 neoplasm of colon Medical Ce nter (procedure) [code = 480331775] Future Scheduled 1961 Screening for malignant [facility] 00:00:00 neoplasm of colon Medical Ce nter (procedure) [code = 668804844] Future Scheduled 1961 Sigmoidoscopy [facility]code [facility]oscopy] Medical Cente r Future Scheduled 1961 Screening for malignant [facility] 00:00:00 neoplasm of breast Medical C enter (procedure) [code = 522646972] Future Scheduled 1961 CT Colonography (combo) [facility] 00:00:00 [code = CT Colonography [facility] (combo)] Future Scheduled 1961 Screening for malignant [facility] 00:00:00 neoplasm of colon Medical Ce nter (procedure) [code = 881533720] Future Scheduled 1961 Screening for malignant [facility] 00:00:00 neoplasm of colon Medical Ce nter (procedure) [code = 396626533] Future Scheduled 1961 Screening for malignant [facility] 00:00:00 neoplasm of colon Medical Ce nter (procedure) [code = 222795484] Future Scheduled 1961 Screening for malignant [facility] 00:00:00 neoplasm of colon Medical Ce nter (procedure) [code = 533070436] Future Scheduled 1961 S[facility]oidoscopy [facility]code [facility]] Medical Cente r Future Scheduled 1961 Screening for malignant [facility] 00:00:00 neoplasm of breast Medical C enter (procedure) [code = 680774541] Future Scheduled 1961 CT Colonography (combo) [facility] 00:00:00 [code = CT Colonography [facility]i [facility] (combo)] Future Scheduled 1961 Screening for malignant [facility] 00:00:00 neoplasm of colon Medical Ce nter (procedure) [code = 088280478] Future Scheduled 1961 Screening for malignant [facility] 00:00:00 neoplasm of colon Medical Ce nter (procedure) [code = 614724548] Future Scheduled 1961 Screening for malignant [facility] 00:00:00 neoplasm of colon Medical Ce nter (procedure) [code = 229744749] Future Scheduled 1961 Screening for malignant [facility] 00:00:00 neoplasm of colon Medical Ce nter (procedure) [code = 304574023] Future Scheduled 1961 S[facility]oidoscopy [facility]] Medical Cente r Encounters Start End Encounter Admission Attending Care Care Encounter Source Date/Time Date/Time Type Type Clinicians Facility Department ID 2023-03-25 Outpatient Man, STLMLC [facility] [id number] Common 09:42:00 Fernando [id number] [facility] 2022-04-27 Outpatient Man, STLC [facility] [id number] Common 10:06:00 Fernando 43052 [facility] 2022-03-26 [facility] [id number] 11:28:10 [facility] 2022-03-22 Outpatient Man, STLMLC [facility] [id number] Common 08:23:00 Fernando 13938 [facility] 2021-09-06 Outpatient Man, STLMLC STLC [id number] Common 13:49:19 Fernando 18028 [facility] 2021-09-06 Outpatient Man, STLMLC STLC [id number] Common 13:45:16 Fernando 92008 [facility] 2021-09-06 Outpatient Man, STLMLC STLC [id number] Common 12:49:41 Fernando 27648 [facility] 2021-09-06 Outpatient Man, STLMLC STLC [id number] Common 12:05:14 Fernando 71294 [facility] 2021-09-06 Outpatient Man, STLMLC STLC [id number] Common 12:03:44 [facility] 03109 [facility] 2021-09-06 Outpatient Man, STLMLC [facility] [id number] Common 11:42:32 [facility] [id number] [facility] 2021-09-06 Outpatient Man, STLMLC STL[facility]C [id number] Common 11:33:04 [facility] 19286 [facility] 2023-06-17 2023-06-17 Outpatient FAN, [facility] [id number] [place] 00:00:00 00:00:00 ERENDIRA 592 Me thodi 2023-05-22 2023-05-25 Inpatient KACEY, [facility] Hos [id number] [place] 00:00:00 00:00:00 DELANEY 906 Meth erasto 2023-05-08 2023-05-08 Outpatient SAHARIA, [facility] [id number] [place] 00:00:00 00:00:00 PEDRO 572 Method i 2023-05-02 2023-05-02 Outpatient SAHARIA, [facility] [id number] [place] 00:00:00 00:00:00 PEDRO 448 Method i 2023-05-02 2023-05-02 Outpatient SAHARIA, [facility] [id number] [place] 00:00:00 00:00:00 PEDRO 636 Method i 2023-05-02 2023-05-02 Outpatient GALATI, [facility] [id number] [place] 00:00:00 00:00:00 CALOS 635 Method i 2023-05-02 2023-05-02 Outpatient SAHARIA, [facility] [id number] [place] 00:00:00 00:00:00 PEDRO 178 Method i 2023-04-19 2023-04-19 Outpatient SFA SFA [id number] [place] 15:28:25 15:28:25 [address] [place] 2023-03-29 2023-03-29 Outpatient SFA SFA [id number] [place] 12:51:47 12:51:47 01224 [place] 2023-03-12 2023-03-13 Outpatient HOBEIKA, [facility] Hos [id number] [place] 00:00:00 00:00:00 RIANA 075 Method i 2023-03-07 2023-03-11 Outpatient IVIS GARVEY [facility] [id number] [place] 00:00:00 00:00:[address] 2023-03-07 2023-03-07 Outpatient SAHARIA, H [facility] [id number] [place] 00:00:00 00:00:00 PEDRO [address] 2023-03-07 2023-03-07 Outpatient BAMBI, [facility] [id number] [place] 00:00:00 00:00:00 JONNIK 539 Method i 2023-03-07 2023-03-07 Outpatient [facility] [id number] [place] 00:00:00 00:00:00 584 Method i 2023-01-28 2023-01-28 Outpatient SAHARIA, [facility] [id number] [place] 00:00:00 00:00:00 PEDRO 785 Method i 2022-12-20 2022-12-20 Outpatient SAHARIA, [facility] [id number] [place] 00:00:00 00:00:00 PEDRO 415 Method i 2022-12-20 2022-12-20 Outpatient BAMBI, [facility] [id number] [place] 00:00:00 00:00:00 JONNIK [address] 2022-12-20 2022-12-20 Outpatient BAMBI, [facility] [id number] [place] 00:00:00 00:00:00 JONNIK 416 Method i 2022-12-20 2022-12-20 Outpatient GALATI, [facility] [id number] [place] 00:00:00 00:00:00 CALOS 400 Method i 2022-12-17 2022-12-17 Emergency NUSZEN, [facility] [id number] [place] 00:00:00 00:00:00 ROMERO 152 Method i 2022-11-27 2022-11-27 Outpatient HAWK, [facility] [id number] [place] 00:00:00 00:00:00 DAKSHA 745 Method i 2022-11-22 2022-11-22 Outpatient BAMBI, [facility] [id number] [place] 00:00:00 00:00:00 RAFIK [address] 2022-11-15 2022-11-15 Outpatient RENÉ, [facility] [id number] [place] 00:00:00 00:00:00 COLIN [facility] 2022-11-12 2022-11-12 (TEL) STLMLC [facility] [id number] Co mmon 00:00:00 00:00:00 [facility] 2022-11-08 2022-11-08 Outpatient SAHARIA, [facility] [id number] [place] 00:00:00 00:00:00 PEDRO 556 Method i 2022-11-08 2022-11-08 Outpatient SAHARIA, [facility] [id number] [place] 00:00:00 00:00:00 PEDRO 153 Method i 2022-11-08 2022-11-08 Outpatient [facility] [id number] [place] 00:00:00 00:00:00 233 Method i 2022-11-07 2022-11-07 Emergency X [facility] ERT [id number] Univers 12:40:00 13:55:[address] [facility] 2022-11-07 2022-11-07 Emergency [facility] [id number] Univers 12:40:00 13:55:00 Martell WILTON [id number] [facility] [id number] [facility] [id number] [address] 2022-10-22 2022-10-22 Outpatient BAMBI, [facility] [id number] [place] 00:00:00 00:00:00 RAFIK [address] 2022-10-22 2022-10-22 Outpatient [facility] [id number] [place] 00:00:00 00:00:[address] 2022-10-18 2022-10-18 Outpatient BAMBI, [facility] [id number] [place] 00:00:00 00:00:00 RAFIK 695 Method i 2022-10-18 2022-10-18 Outpatient [facility] [id number] [place] 00:00:00 00:00:00 509 Method i 2022-10-18 2022-10-18 Outpatient BAMBI, [facility] [id number] [place] 00:00:00 00:00:00 RAFIK 694 Method i 2022-10-15 2022-10-15 Outpatient EDL CID, [facility] [id number] [place] 00:00:00 00:00:00 DAVE 693 Method i 2022-09-27 2022-10-11 Inpatient BAYRON, [facility] [id number] [place] 00:00:00 00:00:00 DARA 859 Method i 2022-10-08 2022-10-08 Inpatient DIVATIA, [facility] [id number] [place] 00:00:00 00:00:00 DARIN 081 Method i 2022-07-16 2022-09-27 Inpatient SAHARIA, [facility] [id number] [place] 00:00:00 00:00:00 PEDRO 884 Method i 2022-07-02 2022-07-02 Outpatient SFA SFA [id number] [place] 14:37:57 14:37:57 52426 [place] 2022-06-15 2022-06-26 Inpatient TING [facility] [id number] [place] 00:00:00 00:00:00 PIERSON, 407 Method i BAYLEE 2022-03-26 2022-06-15 Inpatient YORK, [facility] [id number] [place] 00:00:00 00:00:00 HERIBERTO 401 Method i 2022-02-17 2022-02-23 Inpatient DINAKAR, [facility] [id number] [place] 00:00:00 00:00:00 PIERCE 147 Method i 2022-02-09 2022-02-09 Outpatient Christiana AGUDELO [facility] [id number] Univers 15:00:00 15:00:00 [facility]-09 2022-02-09 Outpatient Christiana AGUDELO [facility] [id number] Univers 15:00:00 15:00:00 [facility] 2022-02-08 2022-02-08 Orders Doctor BETH [id number] Univers 00:00:00 00:00:00 Only Unassigned, MICHAEL [id number] [facility] [id number] Brent as [phone] [address] 2022-01-30 2022-01-30 [facility]phone [facility] [id number] Univers 00:00:00 00:00:00 [facility] [id number] it y of Ricki WILTON [id number] Brent as VAMSI?BLEA [phone] Tn dical KNEY 0[address] [place] [facility] 2022-01-23 2022-01-23 [facility] [id number] [facility] 00:00:00 00:00:00 [facility] 2022-01-10 2022-01-10 Outpatient GALATI, [facility] [id number] [address] [place] [address] 00:00:00 00:00:00 CALOS [address] 2022-01-10 2022-01-10 Outpatient GALATI, [facility] [id number] [address] [place] [address] 00:00:00 00:00:00 CALOS [address] 2021-11-30 2021-11-30 (TEL) [facility] STLC [id number] Co mmon 00:00:00 00:00:00 [facility] 2021-11-30 2021-11-30 (TEL) STLC STLMLC [id number] Co mmon 00:00:00 00:00:00 [facility] 2021-11-16 2021-11-16 Office [facility] [id number] Univers 13:30:00 14:32:33 Visit Libby PORRAS [id number] i ty [id number] [phone] Tn dicemigdio LACEY [address] 2021-11-16 2021-11-16 [facility] [id number] Univers 13:30:00 14:32:33 LIBBY ity of [facility] 2021-11-16 2021-11-16 Outpatient Christiana LEVY [facility] [id number] Univers 13:30:00 13:30:[facility] 2021-11-16 Outpatient Christiana LEVY [facility] [id number] Univers 13:30:00 13:30:00 [facility] 2021-11-10 2021-11-10 Office [facility] [id number] [id number] Univers 16:30:00 16:30:00 Visit Sally PORRAS [id number] i ty [facility] [id number] Kalyani VÁSQUEZIO [phone] Tn dical NAL 098 [facility] 2021-11-10 2021-11-10 Outpatient [facility] [id number] Univers 16:30:00 13:58:19 [facility] 2021-10-27 2021-11-04 Inpatient [facility] [id number] [place] 00:00:00 00:00:00 Ava PIERSON i BAYLEE 2021-10-16 2021-10-16 (HOSP F/U) [facility] [id number] Common 00:00:00 00:00:00 [facility] Follow Up - [facility] 2021-10-13 2021-10-13 [facility] [id number] Co mmon 00:00:00 00:00:00 [facility] 2021-10-03 2021-10-03 Lebron Hall [facility] [id number] [facility] 00:00:00 00:00:00 Kendy [facility] 2021-10-02 2021-10-02 Outpatient Christiana AGUDELO [facility] [id number] Univers 15:30:00 16:50:13 [facility] 2021-10-02 2021-10-02 Outpatient Christiana AGUDELO [facility] [id number] Univers 15:30:00 15:30:00 [facility] 2021-09-27 2021-09-27 Outpatient R CAM [facility] [id number] Univers 13:45:00 15:38:[address] [facility] 2021-09-27 2021-09-27 Office [facility]erm[facility] [id number] Univers 13:45:00 15:38:26 Visit Libby VERN [id number] i ty [id number] [phone] Tn dical [address] 2021-09-27 2021-09-27 Outpatient R CAM [facility] [id number] Univers 13:45:00 15:38:26 [facility] 2021-09-27 2021-09-27 Orders Doctor KIRIT 1.2.840.114 [id number] Univers 00:00:00 00:00:00 Only Unassigned, MICHAEL [id number] [place] [facility] [id number] Brent as [phone] [address] 2021-09-25 2021-09-25 [facility] [id number] Co mmon 00:00:00 00:00:00 VISIT Gilberto CARDENAS PT - CHI LEVEL 4 [facility] 2021-09-01 2021-09-16 Inpatient ER RAFAEL, [facility] Gastro [id number] [facility] 22:15:00 12:13:00 KENDY 2021-09-01 2021-09-16 Hospital ER Garrettheydi Dawna [facility] [id number] 22:15:00 12:13:00 Encounter [facility]ara [facility] Kendy Hall Laura Alissa 2021-09-04 2021-09-04 (TEL) [facility] [id number] Co mmon 00:00:00 00:00:00 Spirit - [facility] 2021-09-01 2021-09-01 Telephone Cristofer 1.2.840.1 [id number] [id number] Methodi 00:00:00 00:00:[address] Matthew 3.430.2.7 Hospit a .3.213787 l .8 2021-09-01 2021-09-01 Mery Anguiano [facility] [id number] [facility] 00:00:00 00:00:00 ion [facility] 2021-08-30 2021-08-31 Emergency ADALI, [facility] 064 [id number] [place] 00:00:00 00:00:00 MOISES [address] 2021-08-30 2021-08-30 Travel 1.2.840.1 1.2.245.525 4401 [id number] Methodi 00:00:00 00:00:[address] 3.430.2.7 0.2.7.3.698 Ho spita .3.358192 084.8 l .8 2021-08-29 2021-08-29 Outpatient Christiana LEVY [facility] [id number] [facility] 13:00:00 13:00:[address] [facility] 2021-08-29 2021-08-29 Outpatient JOSECAPE [facility] [id number] 073 [place] 00:00:00 00:00:[address] CALOS [address] 2021-08-29 2021-08-29 Travel 1.2.840.1 1.2.376.118 4306 006986 Methodi 00:00:00 00:00:[address] 3.430.2.7 0.2.7.3.698 Ho spita .3.436613 084.8 l .8 2021-08-25 2021-08-25 Travel 1.2.840.1 1.2.489.081 1594 [id number] Methodi 00:00:00 00:00:[address] 3.430.2.7 0.2.7.3.698 Ho spita .3.538063 084.8 l .8 2021-08-17 2021-08-25 [facility] JENNIFER GHOSH 1.2.840.1 [id number] [place] 00:00:00 00:00:00 Encounter 60273.1.1 [address] .3.685457 .8 2021-08-24 2021-08-24 Surgery [facility], 1.2.840.1 [id number] 72506 [id number] Methodi 09:00:00 10:25:[address] 3.430.2.7 Hospit a .3.823168 l .8 2021-08-24 2021-08-24 Documentat Delcano, 1.2.840.1 [id number] Methodi 00:00:00 00:00:[place] [address]1.[address] Matthew 3.430.2.7 Hospit a .3.932720 l .8 2021-08-23 2021-08-23 Documentat Delcano, 1.2.840.1 [id number] Methodi 00:00:00 00:00:[place] [address] Matthew 3.430.2.7 Hospit a .3.972627 l .8 2021-08-21 2021-08-21 Social Jaimes, 1.2.840.1 [id number] 193 [id number] Methodi 12:37:39 13:37:39 Work Kirit 65863.1.[address] 3.430.2.7 Hospit a .3.649280 l .8 2021-08-21 2021-08-21 Documentat Delcano, 1.2.840.1 [id number] 21 [id number] Methodi 00:00:00 00:00:[place] [address] Matthew 3.430.2.7 Hospit a .3.206868 l .8 2021-08-21 2021-08-21 Telephone Pops, 1.2.840.1 [id number] 2100 [id number] Methodi 00:00:00 00:00:[address] 3.430.2.7 Hospit a .3.375289 l .8 2021-08-18 2021-08-18 Travel 1.2.840.1 1.2.982.315 5677 004056 Methodi 00:00:00 00:00:[address] 3.430.2.7 0.2.7.3.698 Ho spita .3.739728 084.8 l .8 2021-08-10 2021-08-11 Emergency Adali, 1.2.840.1 [id number] 2 [id number] Methodi 20:25:00 01:30:[address] Rylee 3.430.2.7 Ho spita .3.428932 l .8 2021-08-10 2021-08-10 Travel 1.2.840.1 1.2.425.990 8082 655474 Methodi 00:00:00 00:00:[address] 3.430.2.7 0.2.7.3.698 Ho spita .3.612135 084.8 l .8 2021-07-28 2021-07-28 (TEL) STLMLC STLMLC [id number] Co mmon 00:00:00 00:00:00 [facility] 2021-07-25 2021-07-25 Telephone Stephanie, 1.2.840.1 [id number] 946 [id number] Methodi 00:00:00 00:00:[address] 3.430.2.7 Hospit a .3.456903 l .8 2021-07-24 2021-07-24 Telephone Pops, 1.2.840.1 [id number] 2099 084437 Methodi 00:00:00 00:00:[address] 3.430.2.7 Hospit a .3.775517 l .8 2021-07-12 2021-07-12 (TEL) STLMLC STLMLC [id number] Co mmon 00:00:00 00:00:00 Spirit - [facility] 2021-06-29 2021-06-29 Travel 1.2.840.1 1.2.407.308 8388 881975 Methodi 00:00:00 00:00:[address] 3.430.2.7 0.2.7.3.698 Ho spita .3.363623 084.8 l .8 2021-06-28 2021-06-28 Emergency NUZEN, [facility] 064 [id number] 37 [place] 00:00:00 00:00:00 ROMERO [address] 2021-06-22 2021-06-22 Behavioral John, 1.2.840.1 [id number] 768 [id number] Methodi 00:00:00 00:00:00 Health Kaleb 52645.1.[address] Johnny 3.430.2.7 Hospit a .3.878027 l .8 2021-06-18 2021-06-21 Hospital [facility], 1.2.840.1 [id number] 2099 [id number] [place] 00:00:00 00:00:00 Encounter PIERCE 22491.1.1 [address] .3.107402 .8 2021-06-18 2021-06-18 Travel 1.2.840.1 1.2.035.117 8968 259804 Methodi 00:00:00 00:00:[address] 3.430.2.7 0.2.7.3.698 Ho spita .3.278208 084.8 l .8 2021-06-16 2021-06-16 Orders [facility], 1.2.840.0 [id number] Methodi 00:00:00 00:00:00 Only Eusebia E 39355.1.[address] 3.430.2.7 Hospit a .3.856426 l .8 2021-06-08 2021-06-08 Clinical 1.2.840.1 [id number] 60669 82599 Methodi 12:04:06 13:04:[address] 3.430.2.7 Hospit a .3.919503 l .8 2021-06-05 2021-06-05 Telephone John, 1.2.840.1 [id number] 2100 880689 Methodi 00:00:00 00:00:[address] Johnny 3.430.2.7 Hospit a .3.616899 l .8 2021-05-31 2021-06-02 [facility], 1.2.840.1 [id number] 681 [id number] [place] 00:00:00 00:00:00 Encounter HERIBERTO 42228.1.1 [address] .3.172902 .8 2021-05-31 2021-05-31 Travel 1.2.840.1 1.2.087.334 1918 333379 Methodi 00:00:00 00:00:[address] 3.430.2.7 0.2.7.3.698 Ho spita .3.611008 084.8 l .8 2021-05-24 2021-05-27 [facility] 012 [id number] 53 [place] 00:00:00 00:00:00 Encounter [facility] [address] 2021-05-24 2021-05-24 Travel 1.2.840.1 1.2.837.286 8403 512747 Methodi 00:00:00 00:00:[address] 3.430.2.7 0.2.7.3.698 Ho spita .3.443165 084.8 l .8 2021-05-23 2021-05-23 (TEL) STLMLC STLMLC [id number] Co mmon 00:00:00 00:00:00 [facility] 2021-05-19 2021-05-19 (TEL) STLMLC STLMLC [id number] Co mmon 00:00:00 00:00:00 [facility] 2021-05-01 2021-05-01 (TEL) STLMLC STLMLC [id number] Co mmon 00:00:00 00:00:00 [facility] 2021-04-26 2021-04-26 (TEL) STLMLC STLMLC [id number] Co mmon 00:00:00 00:00:00 [facility] 2021-04-26 2021-04-26 OFFICE STLMLC STLMLC [id number] Co mmon 00:00:00 00:00:00 VISIT [facility] LEVEL 4 [facility] 2021-04-26 2021-04-26 SUB ANNUAL STLMLC STLMLC [id number] Common 00:00:00 00:00:00 MCR [facility] VISIT [facility] 2021-04-21 2021-04-21 (TEL) STLMLC STLMLC [id number] Co mmon 00:00:00 00:00:00 [facility] 2021-01-13 2021-01-13 (TEL) STLMLC STLMLC [id number] Co mmon 00:00:00 00:00:00 [facility] 2020-12-13 2020-12-13 (TEL) STLMLC STLMLC [id number] Co mmon 00:00:00 00:00:00 [facility] 2020-11-28 2020-11-28 Patient [place], 1.2.840.1 [id number] Methodi 00:00:00 00:00:00 Outreach Bia 46273.1.[address] 3.430.2.7 Hospit a .3.552416 l .8 2020-11-25 2020-11-25 Patient [place], 1.2.840.1 [id number] 51279 Methodi 00:00:00 00:00:00 Outreach Bia 89506.1.[address] 3.430.2.7 Hospit a .3.164657 l .8 2020-11-24 2020-11-24 Patient Randal, 1.2.840.1 [id number] 47902 Methodi 00:00:00 00:00:00 Outreach Bia 64521.1.[address] 3.430.2.7 Hospit a .3.797096 l .8 2020-11-22 2020-11-23 Emergency Wild Kovacs 1.2.840. 1 [id number] Methodi 17:29:00 16:26:00 Baylee Girard [address]2626.1.[address] 3.430.2.7 Hospit a .3.285120 l .8 2020-11-22 2020-11-22 Travel 1.2.840.1 1.2.883.898 9029 744318 Methodi 00:00:00 00:00:[address] 3.430.2.7 0.2.7.3.698 Ho spita .3.698136 084.8 l .8 2020-11-17 2020-11-17 Outpatient STLMLC STLMLC [id number] Common 00:00:00 00:00:00 [facility] 2020-11-02 2020-11-02 [facility] ChuLaurel 1.2.840.1 104 [id number] Methodi 16:45:00 23:59:00 Encounter Calos Garcia 48396.1.[address] 3.430.2.7 Hospit a .3.095853 l .8 2020-11-02 2020-11-02 Lab Jose 1.2.840.1 [id number] 9846 Methodi 16:00:31 16:05:31 Calos Feng 35213.1.[address] 3.430.2.7 Hospit a .3.408716 l .8 2020-11-02 2020-11-02 Travel 1.2.840.1 1.2.185.934 7616 891129 Methodi 00:00:00 00:00:[address] 3.430.2.7 0.2.7.3.698 Ho spita .3.015606 084.8 l .8 2020-10-26 2020-10-26 [facility], 1.2.840.1 [id number] 512 [id number] Methodi 12:51:36 23:59:00 Encounter Cliff Marion 80917.1.[address] 3.430.2.7 Hospit a .3.907983 l .8 2020-10-26 2020-10-26 [facility], 1.2.840.1 [id number] 592 [id number] Methodi 08:10:06 12:50:00 Encounter Cliff Marion 61441.1.[address] 3.430.2.7 Hospit a .3.333933 l .8 2020-10-26 2020-10-26 Travel 1.2.840.1 1.2.726.701 0003 [id number] Methodi 00:00:00 00:00:[address] 3.430.2.7 0.2.7.3.698 Ho spita .3.088090 084.8 l .8 2020-10-23 2020-10-24 Located Within [facility] 1.2.840.1 104 [id number] Methodi 17:57:00 14:46:00 Encounter Heriberto [place] 35156.1.[address] Gloria Girardalo 3.430.2.7 [facility] .3.931973 l .8 2020-10-13 2020-10-13 Travel 1.2.840.1 1.2.549.957 7964 136658 Methodi 00:00:00 00:00:[address] 3.430.2.7 0.2.7.3.698 Ho spita .3.640952 084.8 l .8 2020-10-12 2020-10-12 [facility], 1.2.840.1 [id number] 2 [id number] Methodi 00:00:00 00:00:00 Orders Cliff Marion 01890.1.[address] 3.430.2.7 Hospit a .3.178451 l .8 2020-10-11 2020-10-11 Outpatient STLC [facility] [id number] Common 00:00:00 00:00:00 [facility] 2020-10-09 2020-10-09 Emergency Azevedo, 1.2.840.1 [id number] 2100 [id number] Methodi 16:28:00 19:29:[address] Gus 3.430.2.7 Hospit a .3.364434 l .8 2020-10-03 2020-10-03 Outpatient STLC STLC [id number] Common 00:00:00 00:00:00 [facility] 2020-09-19 2020-09-21 [facility] 1.2.840.1 [id number] Methodi 16:55:00 14:27:00 Encounter Heriberto [place] 60807.1.[address] Tatig 3.430.2.7 Hos lis .3.657460 l .8 2020-09-15 2020-09-15 Transcribe Jose 1.2.840.1 [id number] 766 [id number] Methodi 00:00:00 00:00:00 Orders Calos Feng 78514.1.[address] 3.430.2.7 Hospit a .3.440645 l .8 2020-09-14 2020-09-14 Outpatient STLC STLC [id number] Common 00:00:00 00:00:00 [facility] 2020-08-31 2020-09-02 Inpatient ROLANDO [facility] [id number] 438 [place] 00:00:00 00:00:00 [facility] [address] 2020-08-10 2020-08-13 Inpatient CHELA [facility] [id number] [id number] 3829 [place] 00:00:00 00:00:00 HERIBERTO 301 Method i 2020-08-09 2020-08-09 Emergency NUSZEN, [facility] 064 [id number] 75 [place] 00:00:00 00:00:00 ROMERO [address] 2020-08-08 2020-08-08 Emergency WEIBEL, [facility] 064 [id number] 08 [place] 00:00:00 00:00:00 NOBLE 028 Method i 2020-07-27 2020-07-27 Outpatient STLMLC STLMLC [id number] Common 00:00:00 00:00:00 [facility] 2020-07-18 2020-07-18 Outpatient [facility] [id number] 692 [place] 00:00:00 00:00:00 996 Method i 2020-07-04 2020-07-07 Inpatient JENNIFER GHOSH [facility] [id number] [place] 00:00:00 00:00:00 529 Method i 2020-06-28 2020-06-28 Outpatient STLMLC STLMLC [id number] Common 00:00:00 00:00:00 [facility] 2020-06-20 2020-06-20 Outpatient STLMLC STLMLC [id number] Common 00:00:00 00:00:00 [facility] 2020-05-30 2020-06-03 Inpatient JENNIFER GHOSH [facility] 064 [id number] [place] 00:00:00 00:00:00 431 Method i 2020-05-27 2020-05-27 Outpatient YALAMANCHIL [facility] 998 [id number] [place] 00:00:00 00:00:00 I, YIFAN [address] 2020-05-20 2020-05-20 Outpatient STLMLC STLMLC [id number] Common 00:00:00 00:00:00 [facility] 2020-05-13 2020-05-17 Inpatient MCCARTAN, [facility] 064 [id number] [place] 00:00:00 00:00:00 MERCY 422 Method i 2020-04-13 2020-04-21 Inpatient YOJANA, [facility] 064 [id number] 65 [place] 00:00:00 00:00:00 JUNO 459 Method i 2020-04-13 2020-04-13 Out[facility] [id number] Common 16:02:00 16:02:[address] [facility] 2020-04-13 2020-04-13 Outpatient [facility] [id number] Common 09:33:00 09:33:[address] [facility] 2020-04-05 2020-04-05 Outpatient [facility] 32 [id number] Common 09:10:00 09:10:[address] [facility] 2020-04-04 2020-04-04 Outpatient [facility] [id number] Common 10:58:00 10:58:[address] [facility] 2020-04-04 2020-04-04 Outpatient [facility] 32 [id number] Common 10:00:00 10:00:[address] [facility] 2020-03-17 2020-03-19 Inpatient [facility] 064 [id number] 84 [place] 00:00:00 00:00:00 Ben PIERSON Method i [facility] 2020-03-16 2020-03-16 Outpatient [facility] [id number] Common 11:12:00 11:12:[address] [facility] 2020-03-14 2020-03-14 Outpatient JACQUELIN, [facility] [id number] 2027 [place] 00:00:00 00:00:00 EBONY [address] 2020-03-10 2020-03-10 Outpatient [facility] [id number] Common 13:18:00 13:18:[address] [facility] 2020-03-07 2020-03-07 Outpatient [facility] [id number] Common 16:07:00 16:07:[address] [facility] 2020-03-04 2020-03-04 Outpatient [facility] [id number] Common 11:00:00 11:00:[address] [facility] 2020-03-04 2020-03-04 Outpatient [facility] 30 [id number] Common 11:00:00 11:00:[address] [facility] 2020-03-04 2020-03-04 Outpatient MEAGAN, [facility] [id number] 128 [place] 00:00:00 00:00:00 JAYASIMHA 578 Meth erasto 2020-02-18 2020-02-21 Inpatient YORK, [facility] [id number] [place] 00:00:00 00:00:00 HERIBERTO 304 Method i 2020-01-18 2020-01-20 Inpatient DINAKAR, [facility] [id number] 718 [place] 00:00:00 00:00:00 PIERCE 881 Method i 2020-01-07 2020-01-11 Inpatient YORK, [facility] 064 [id number] [place] 00:00:00 00:00:00 HERIBERTO 087 Method i 2019-12-29 2019-12-29 Out[facility] [id number] Common 07:03:00 07:03:[address] Sp[address] [facility] 2019-12-23 2019-12-25 Inpatient TING [facility] 064 [id number] 99 [place] 00:00:00 00:00:00 PIERSON, 540 Method i BAYLEE 2019-12-23 2019-12-23 Outpatient JACQUELIN, [facility] [id number] [place] 00:00:00 00:00:00 AHMED 960 Method i 2019-12-22 2019-12-22 Office [facility] 1.2.840.114 [id number] 14:08:03 14:56:41 Visit [facility] 350.1.13.10 Surgical 4.2.7.2.686 Specialti [phone] es 198 [place] 2019-12-22 2019-12-22 Office [facility] 1.2.840.114 [id number] [facility] 14:08:03 14:56:41 Visit [facility] 350.1.13.10 it y of Surgical 4.2.7.2.686 Brent as Specialti [id number] Me dical es 198 [facility] 2019-12-22 2019-12-22 Outpatient [facility] [id number] Univers 14:15:00 14:15:[address] [facility] 2019-12-15 2019-12-15 [facility] 1.2.840.114 [id number] Univers 14:57:28 15:12:28 Visit [facility] 350.1.13.10 it y of Surgical 4.2.7.2.686 Brent as Specialti [id number] Tn dical es 198 [facility] 2019-12-15 2019-12-15 Outpatient [facility] [id number] Univers 15:00:00 15:00:00 [facility] 2019-12-08 2019-12-08 [facility] 1.2.840.114 [id number] Univers 15:45:23 16:15:13 Visit [facility] 350.1.13.10 it y of Surgical 4.2.7.2.686 Brent as Specialti [phone] Tn dical es 198 [facility] 2019-12-08 2019-12-08 Outpatient [facility] [id number] Univers 16:00:00 16:00:00 [facility]-12-[facility] 2019-12-08 Outpatient Christian[facility] [id number] Univers 13:45:00 13:45:00 [facility] 2019-10-30 2019-10-30 Outpatient Christian[facility] [id number] Univers 10:15:00 10:15:[address] [facility] 2019-10-26 2019-10-26 Orders Doctor KIRIT 1.2.840.114 [id number] Univers 00:00:00 00:00:00 Only Unassigned, MICHAEL 350.1.13.10 ity of [facility] 4.2.7.2.686 Brent as [id number] [address] 2019-10-22 2019-10-22 Outpatient Christian[facility] [id number] Univers 16:15:00 16:15:[address] [facility] 2019-10-22 2019-10-22 Office [facility] 1.2.840.114 [id number] Univers 10:06:57 10:56:32 [facility] 350.1.13.10 it y of Surgical 4.2.7.2.686 Brent as Specialti [id number] Me dical es 198 [facility] 2019-10-22 2019-10-22 Outpatient Christian[facility] [id number] Univers 10:15:00 10:15:00 [facility] 2019-10-12 2019-10-15 Inpatient CHELA, [facility] [id number] [id number] [place] 00:00:00 00:00:00 HERIBERTO 906 Method i 2019-09-24 2019-09-24 [facility] 1.2.840.114 [id number] Univers 11:21:26 11:41:20 Visit [facility] 350.1.13.10 it y of Surgical 4.2.7.2.686 Brent as Specialti [id number] Tn dical es 198 [facility] 2019-09-24 2019-09-24 Outpatient Christian[facility] [id number] Univers 11:15:00 11:41:20 [facility] 2019-09-01 2019-09-03 Inpatient CHELA [facility] [id number] [place] 00:00:00 00:00:00 HERIBERTO 637 Method i 2019-07-20 2019-07-20 Outpatient [facility] [id number] Common 14:02:00 14:02:00 t [employer] Spir it [address] [facility] 2019-07-16 2019-07-16 Outpatient [facility] [id number] Common 13:15:00 13:15:00 t [employer] [address] [facility] 2019-06-16 2019-06-18 Inpatient CHELA [facility] [id number] 2013 [place] 00:00:00 00:00:00 HERIBERTO [address] 2019-05-07 2019-05-08 Outpatient YOVANY TAVERAS [facility] [id number] [place] 00:00:00 00:00:00 691 Method i 2019-04-23 2019-04-23 Outpatient GALTRISH, [facility] [id number] 307 [place] 00:00:00 00:00:00 CALOS [address] 2019-04-23 2019-04-23 Outpatient JACQUELIN, [facility] [id number] [place] 00:00:00 00:00:00 EBONY 72Luz Method i 2019-04-15 2019-04-15 Outpatient [facility] [id number] Common 14:19:00 14:19:[address] [facility] 2019-04-09 2019-04-09 Outpatient [facility] [id number] Common 14:00:00 14:00:[address] [facility] 2019-03-10 2019-03-10 Transition Bennie Ma 1.2.840.114 [id number] Univers 00:00:00 00:00:00 of Care Anabell Almaguer 350.1.13.10 it y of [place] 4.2.7.2.686 [facility] [phone] [facility] [address] 2019-03-06 2019-03-09 [facility] DiannkazrikaAkanksha 1.2.840. 114 [id number] Univers 00:42:03 16:11:00 Encounter Indra Motta 350.1.13.1 0 ity of [facility] 4.2.7.2.686 [place] [id number] [facility] [address] 2019-01-21 2019-01-21 Emergency [facility] E[facility] [id number] Univers 19:21:56 22:21:00 MARTELL lakhaniy of [facility] 2018-09-09 2018-09-09 Outpatient [facility] [id number] Common 14:45:00 14:45:[address] [facility] 2018-04-15 2018-04-15 Outpatient [facility] [id number] Common 12:02:00 12:02:[address] [facility] 2018-02-19 2018-02-19 Outpatient [facility] [id number] Common 15:08:00 15:08:[address] [facility] 2018-01-24 2018-01-24 Outpatient Irma Solist [id number] Common 11:15:00 11:15:00 t [facility] [employer] [facility] [address] [facility] Results Test Description Test Time Test Comments Results Result Comments Source Influenza virus A and B and 2023-05-22 17:33:43 Test Item Value Reference Range Interpretation Comme nts SARS-CoV-2 (COVID-19) RNA [Presence] in Respiratory specimen by Not detected GUSTAVO with probe detection (test code = 63958-8) Whether patient resides in a congregate care setting (test code = N o 43928-0) Date and time of symptom onset (test code = 30278-9) Unknown Whether the patient was hospitalized for condition of interest No (test code = 28950-9) Whether the patient was admitted to intensive care unit (ICU) for N o condition of interest (test code = 62056-0) 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 (test code = No 51304-9) Whether the patient has symptoms related to condition of interest N o (test code = 92014-0) status (test code = 51153-5) No PHI SIMPSON REFLEX AUTOIMMUNE AB [id number] 02:28:00 Test Item Value Reference Range Interpretation Comments ANTI-NUCLEAR NEGATIVE NEGATIVE Methodology is ANTIBODIES (test Indirect code = 3506) Immunofluoresce nt Assay (IFA) with a Vay[employer] system using He p2000 cells (Hep2 georgette ls transfected wi th SS-A/Ro). ANNETTE PATTERN SEE BELOW (REPORTED TITER) (test code = 70792) HOMOGENEOUS (test NEGATIVE TITER NEGATIVE code = 58354) SPECKLED (test NEGATIVE TITER NEGATIVE code = 224921) DENSE FINE NEGATIVE TITER NEGATIVE SPECKLED (test code = 45361) CENTROMERE (test NEGATIVE TITER NEGATIVE code = 809460) COARSE SPECKLED NEGATIVE TITER NEGATIVE (test code = 837870) DISCRETE NUCLEAR NEGATIVE TITER NEGATIVE DOTS (test code = 329364) NUCLEOLAR (test NEGATIVE TITER NEGATIVE code = 886160) NUCLEAR MEMBRANE NEGATIVE TITER NEGATIVE (test code = 411794) CYTO. RETICULAR NEGATIVE NEGATIVE (MELISSA) (test code = 918531) COMMENTS (test NONE code = 885542) METHOD (test code (NOTE) TESTING P ERFORMED BY = 61125) [facility] NOVA VIEW IFA PLATFO RM.THE METHOD INCLUDES A SCREEN THRESHOL D OF 1:80, DIGITIZED AND COMPUTER ALGORITHM-WILLAM BARRON INTERPRETATION OF TITERS AND DIGI ESTEBAN PATTERNS, AND H Ep-2 CELL LINE SUBST RATE. ADDITIONAL UNUS UAL PATTERNS WILL B E GIVEN COMMENTS.FOR MORE INFORMATION, SE E [email or web address]-Grace deshpande C-REACTIVE [id number] 06:00:33 Test Item Value Reference Range Interpretation Comments C-REACTIVE PROTEIN <0.3 MG/DL <0.5 UNLESS O THERWISE (test code = 3513) INDICATED , ALL TESTING PERFORMED AT [facility] [employer] [employer] [address] [place] [address] 4 LABORATORY DIRE CTOR: JOE MCCLELLAND M.D. [place] NUMBER [id number] [place] [id number] TSH, THIRD [id number] 05:37:30 Test Item Value Reference Range Interpretation Comments TSH, THIRD GENERATION (test code 6.020 UIU/ML 0.400-4.100 H = 2821) URIC [id number] 05:36:59 Test Item Value Reference Range Interpretation Comments URIC ACID (test code = 2233) 12.4 MG/DL 2.7-6.1 H VITAMIN D, 25 [id number] 05:32:08 Test Item Value Reference Range Interpretation Comments VITAMIN D, 25 40 NG/ML SEE BELOW EFFECTIVE 08/20/2022, [place] (test code PLEASE NOTE NE W METHODOLOGY = 4958) IS ELECTROCH EMILUMINESCENCE BINDING ASSAY. NOTE: 25-HYDROXYVITAM IN D ASSAY INCLUDES 25-HYD ROXYVITAMIN D2 AND D3. I NTERPRETIVE RANGES PED IATRIC (<17 YEARS) . . . . . . . . . . . NG/ML 20-100ADU LT: INSUFFICIENT . . . . . . . . . . . . . . NG/ML <20 SUBOP TIMAL . . . . . . . . . . . . . . . NG/ML 20-29 OPTIMAL . . . . . . . . . . . . . . . . . NG/ML 30-100 RHEUMATOID FACTOR, [id number] 05:31:50 Test Item Value Reference Range Interpretation Comments RHEUMATOID FACTOR, QUANT (test code 10 IU/ML <14 = 3502) CCP [id number] 04:57:39 Test Item Value Reference Range Interpretation Comments CCP IgG (test <0.5 U/ML <3.0 INTERPRET JAMIL code = 99118) INFORMATION * INTERPRETATION RESULT NEGATIVE <3.0 U /ML POSITIVE >=3.0 U/ML SEDIMENTATION [id number] 03:06:18 Test Item Value Reference Range Interpretation Comments SEDIMENTATION RATE (test code = 14 MM/HOUR 0-20 1017) CBC W/AUTO DIFF WITH [id number] 02:18:54 Test Item Value Reference Range Interpretation Comments WBC (test code = 4.2 K/UL 3.5-11.0 1001) RBC (test code = 3.46 M/UL 3.80-5.40 L 1002) HEMOGLOBIN (test code 11.1 G/DL 11.5-15.5 L = 1003) HEMATOCRIT (test code 32.9 % 34.0-45.0 L = 1004) MCV (test code = 95.1 fL 80.0-99.0 1005) MCH (test code = 32.1 PG 25.0-33.0 1006) MCHC (test code = 33.7 G/DL 31.0-36.0 1007) RDW (test code = 13.1 % 11.5-15.0 1038) NEUTROPHILS (test 52.7 % code = 1008) LYMPHOCYTES (test 31.3 % code = 1010) MONOCYTES (test code 13.8 % = 1011) EOSINOPHILS (test 1.2 % code = 1012) BASOPHILS (test code 0.5 % = 1013) IMMATURE GRANULOCYTES 0.5 % (test code = 1036) NUCLEATED RBCS (test 0.0 /100 WBC'S See_Comment [Aut omated code = 1065) message] The sy stem which generated this result transmitted reference range : 0.0. The refere nce range was not u sed to interpret th is result as normal/abnormal . PLATELET COUNT (test 165 K/UL 130-400 code = 1015) ABSOLUTE NEUTROPHILS 2.21 K/UL 1.50-7.50 (test code = 1066) ABSOLUTE LYMPHOCYTES 1.31 K/UL 1.00-4.00 (test code = 1067) ABSOLUTE MONOCYTES 0.58 K/UL 0.20-1.00 (test code = 1068) ABSOLUTE EOSINOPHILS 0.05 K/UL 0.00-0.50 (test code = 1040) ABSOLUTE BASOPHILS 0.02 K/UL 0.00-0.20 (test code = 1069) ABS IMMATURE 0.02 K/UL 0.00-0.10 GRANULOCYTES (test code = 1020) ABS NUCLEATED RBCS 0.00 K/UL 0.00-0.11 (test code = 70296) Influenza virus A and B [id number] 18:44:34 Test Item Value Reference Range Interpretation Comments SARS-CoV-2 (COVID-19) RNA Not detected [Presence] in Respiratory specimen by GUSTAVO with probe detection (test code = 85832-2) Whether patient resides in a No congregate care setting (test code = 01940-5) Date and time of symptom onset Unknown (test code = 15023-1) Whether the patient was No hospitalized for condition of interest (test code = 13315-1) Whether the patient was admitted No to intensive care unit (ICU) for condition of interest (test code = 91675-5) 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 employed in a No healthcare setting (test code = 76256-0) Whether the patient has symptoms No related to condition of interest (test code = 79266-7) status (test code = No 29003-5) PHI DEANRS-CoV-2 (COVID-19) RNA [Presence] in Respiratory specimen by GUSTAVO with probe [id number] 19:26:29 Test Item Value Reference Range Interpretation Comments SARS-CoV-2 (COVID-19) RNA Not detected [Presence] in Respiratory specimen by GUSTAVO with probe detection (test code = 31403-0) 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 employed in a Unknown healthcare setting (test code = 86338-2) Whether the patient has symptoms Unknown related to condition of interest (test code = 50189-8) Whether the patient was Unknown hospitalized for condition of interest (test code = 91012-1) Whether the patient was admitted Unknown to intensive care unit (ICU) for condition of interest (test code = 12327-5) Whether patient resides in a Unknown congregate care setting (test code = 08654-0) status (test code = Unknown 36155-5) Date and time of symptom onset Unknown (test code = 04806-8) PHI MICHAELSARS-CoV-2 (COVID-19) RNA [Presence] in Respiratory specimen by GUSTAVO with probe [id number] 18:27:11 Test Item Value Reference Range Interpretation Comments SARS-CoV-2 (COVID-19) RNA Not detected [Presence] in Respiratory specimen by GUSTAVO with probe detection (test code = 74713-2) 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 employed in a Unknown healthcare setting (test code = 33095-3) Whether the patient has symptoms Unknown related to condition of interest (test code = 79166-2) Whether the patient was Unknown hospitalized for condition of interest (test code = 78928-8) Whether the patient was admitted Unknown to intensive care unit (ICU) for condition of interest (test code = 49712-9) Whether patient resides in a Unknown congregate care setting (test code = 99832-0) status (test code = Unknown 31553-8) Date and time of symptom onset Unknown (test code = 22777-4) PHI MICHAELSARS-CoV-2 (COVID-19) RNA [Presence] in Respiratory specimen by GUSTAVO with probe [id number] 02:07:43 Test Item Value Reference Range Interpretation Comments SARS-CoV-2 (COVID-19) RNA Not detected [Presence] in Respiratory specimen by GUSTAVO with probe detection (test code = 89175-5) 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 employed in a Unknown healthcare setting (test code = 02080-7) Whether the patient has symptoms Unknown related to condition of interest (test code = 54227-3) Whether the patient was Unknown hospitalized for condition of interest (test code = 00153-4) Whether the patient was admitted Unknown to intensive care unit (ICU) for condition of interest (test code = 36020-7) Whether patient resides in a Unknown congregate care setting (test code = 71917-7) status (test code = Unknown 40028-3) Date and time of symptom onset Unknown (test code = 17572-5) PHI MICHAELSARS-CoV-2 (COVID-19) RNA [Presence] in Respiratory specimen by GUSTAVO with probe [id number] 21:37:35 Test Item Value Reference Range Interpretation Comments SARS-CoV-2 (COVID-19) RNA Not detected [Presence] in Respiratory specimen by GUSTAVO with probe detection (test code = 62219-4) 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 employed in a Unknown healthcare setting (test code = 44786-5) Whether the patient has symptoms Unknown related to condition of interest (test code = 41085-8) Whether the patient was Unknown hospitalized for condition of interest (test code = 24874-3) Whether the patient was admitted Unknown to intensive care unit (ICU) for condition of interest (test code = 14009-7) Whether patient resides in a Unknown congregate care setting (test code = 45567-0) status (test code = Unknown 55689-3) Date and time of symptom onset Unknown (test code = 85856-6) PHI MICHAELSARS-CoV-2 (COVID-19) RNA [Presence] in Respiratory specimen by GUSTAVO with probe [id number] 05:52:15 Test Item Value Reference Range Interpretation Comments SARS-CoV-2 (COVID-19) RNA Not detected [Presence] in Respiratory specimen by GUSTAVO with probe detection (test code = 78056-9) 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 employed in a Unknown healthcare setting (test code = 03175-6) Whether the patient has symptoms Unknown related to condition of interest (test code = 16962-1) Whether the patient was Unknown hospitalized for condition of interest (test code = 41537-6) Whether the patient was admitted Unknown to intensive care unit (ICU) for condition of interest (test code = 80862-9) Whether patient resides in a Unknown congregate care setting (test code = 73119-6) status (test code = Unknown 43572-3) Date and time of symptom onset Unknown (test code = 67671-0) PHI MICHAELSARS-CoV-2 (COVID-19) RNA [Presence] in Respiratory specimen by GUSTAVO with probe [id number] 05:19:43 Test Item Value Reference Range Interpretation Comments SARS-CoV-2 (COVID-19) RNA Not detected [Presence] in Respiratory specimen by GUSTAVO with probe detection (test code = 33972-3) 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 employed in a Unknown healthcare setting (test code = 34576-1) Whether the patient has symptoms Unknown related to condition of interest (test code = 80909-4) Whether the patient was Unknown hospitalized for condition of interest (test code = 44249-6) Whether the patient was admitted Unknown to intensive care unit (ICU) for condition of interest (test code = 12750-5) Whether patient resides in a Unknown congregate care setting (test code = 69854-4) status (test code = Unknown 07340-4) Date and time of symptom onset Unknown (test code = 74792-6) PHI MICHAELSARS-CoV-2 (COVID-19) RNA [Presence] in Respiratory specimen by GUSTAVO with probe [id number] 00:24:44 Test Item Value Reference Range Interpretation Comments SARS-CoV-2 (COVID-19) RNA Not detected [Presence] in Respiratory specimen by GUSTAVO with probe detection (test code = 28342-4) 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 employed in a Unknown healthcare setting (test code = 50364-8) Whether the patient has symptoms Unknown related to condition of interest (test code = 01796-5) Whether the patient was Unknown hospitalized for condition of interest (test code = 70808-7) Whether the patient was admitted Unknown to intensive care unit (ICU) for condition of interest (test code = 06126-8) Whether patient resides in a Unknown congregate care setting (test code = 47077-4) status (test code = Unknown 68587-0) Date and time of symptom onset Unknown (test code = 11775-4) PHI MICHAELSARS-CoV-2 (COVID-19) RNA [Presence] in Respiratory specimen by GUSTAVO with probe [id number] 07:50:50 Test Item Value Reference Range Interpretation Comments SARS-CoV-2 (COVID-19) RNA Not detected [Presence] in Respiratory specimen by GUSTAVO with probe detection (test code = 57515-3) 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 employed in a Unknown healthcare setting (test code = 67717-3) Whether the patient has symptoms Unknown related to condition of interest (test code = 23639-3) Whether the patient was Unknown hospitalized for condition of interest (test code = 83225-2) Whether the patient was admitted Unknown to intensive care unit (ICU) for condition of interest (test code = 48087-1) Whether patient resides in a Unknown congregate care setting (test code = 61570-8) status (test code = Unknown 30706-7) Date and time of symptom onset Unknown (test code = 49027-8) PHI CORLEY CVLMAVON-AqC-3 (COVID-19) RNA [Presence] in Respiratory specimen by GUSTAVO with probe ijlpttacs5910-02-13 19:18:03 Test Item Value Reference Range Interpretation Comments SARS-CoV-2 (COVID-19) RNA Not detected [Presence] in Respiratory specimen by GUSTAVO with probe detection (test code = 93992-0) 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 employed in a No healthcare setting (test code = 06929-6) Whether the patient has symptoms Yes related to condition of interest (test code = 76023-5) Whether the patient was No hospitalized for condition of interest (test code = 06012-4) Whether the patient was admitted No to intensive care unit (ICU) for condition of interest (test code = 70242-7) Whether patient resides in a No congregate care setting (test code = 13451-1) status (test code = No 57745-6) Date and time of symptom onset Unknown (test code = 92240-2) PHI MICHAELSARS-CoV-2 (COVID-19) RNA [Presence] in Respiratory specimen by GUSTAVO with probe [id number] 11:44:34 Test Item Value Reference Range Interpretation Comments SARS-CoV-2 (COVID-19) RNA Not detected [Presence] in Respiratory specimen by GUSTAVO with probe detection (test code = 04737-1) 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 employed in a Unknown healthcare setting (test code = 44582-5) Whether the patient has symptoms Unknown related to condition of interest (test code = 40641-2) Whether the patient was Unknown hospitalized for condition of interest (test code = 30107-4) Whether the patient was admitted Unknown to intensive care unit (ICU) for condition of interest (test code = 30450-5) Whether patient resides in a Unknown congregate care setting (test code = 61130-6) status (test code = Unknown 41226-3) Date and time of symptom onset Unknown (test code = 89905-0) PHI MICHAELSARS-CoV-2 (COVID-19) RNA [Presence] in Respiratory specimen by GUSTAVO with probe [id number] 05:03:29 Test Item Value Reference Range Interpretation Comments SARS-CoV-2 (COVID-19) RNA Not detected [Presence] in Respiratory specimen by GUSTAVO with probe detection (test code = 32692-2) 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 employed in a Unknown healthcare setting (test code = 16795-0) Whether the patient has symptoms Unknown related to condition of interest (test code = 32589-5) Whether the patient was Unknown hospitalized for condition of interest (test code = 21599-5) Whether the patient was admitted Unknown to intensive care unit (ICU) for condition of interest (test code = 11362-8) Whether patient resides in a Unknown congregate care setting (test code = 57423-0) status (test code = Unknown 91501-9) Date and time of symptom onset Unknown (test code = 77069-0) PHI DEANRS-CoV-2 (COVID-19) RNA [Presence] in Respiratory specimen by GUSTAVO with probe [id number] 16:50:47 Test Item Value Reference Range Interpretation Comments SARS-CoV-2 (COVID-19) RNA Not detected [Presence] in Respiratory specimen by GUSTAVO with probe detection (test code = 90278-9) 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 employed in a Unknown healthcare setting (test code = 15599-1) Whether the patient has symptoms Unknown related to condition of interest (test code = 90173-2) Whether the patient was Unknown hospitalized for condition of interest (test code = 30078-4) Whether the patient was admitted Unknown to intensive care unit (ICU) for condition of interest (test code = 98737-0) Whether patient resides in a Unknown congregate care setting (test code = 41415-5) status (test code = Unknown 28560-3) Date and time of symptom onset Unknown (test code = 64014-0) PHI MICHAELHepatitis B surface [id number] 23:01:06 Test Item Value Reference Range Interpretation Comments Hepatitis B surface Nonreactive Nonreactive antigen (test code = 5195-3) REJI (test code = REJI) Specimen is considered negative for HBsAg. Lab Interpretation (test Normal code = 00025-8) [facility] [id number] 23:01:06 Test Item Value Reference Range Interpretation Comments Hep B C IgM (test code = Nonreactive Nonreactive 76573-5) REJI (test code = REJI) [employer] Engineer ID - ADMIN Lab Interpretation (test Normal code = 65527-7) [facility], [id number] 23:01:06 Test Item Value Reference Range Interpretation Comments Hep A IgM (test code = Nonreactive Nonreactive 50658-3) REJI (test code = REJI) [employer] Service Engineer ID - ADMIN Lab Interpretation (test Normal code = 49239-0) [facility] [id number] 23:01:06 Test Item Value Reference Range Interpretation Comments Hepatitis C Ab (test code Nonreactive Nonreactive = 93432-8) REJI (test code = REJI) [employer] Service Engineer ID - ADMIN Lab Interpretation (test Normal code = 49130-6) [facility] B surface [id number] 23:01:06 Test Item Value Reference Range Interpretation Comments Hepatitis B surface Nonreactive Nonreactive antigen (test code = 5195-3) REJI (test code = REJI) Specimen is considered negative for HBsAg. Lab Interpretation (test Normal code = 43421-0) [facility] B core antibody, [id number] 23:01:06 Test Item Value Reference Range Interpretation Comments Hep B C IgM (test code = Nonreactive Nonreactive 36794-6) REJI (test code = REJI) [employer] Service Engineer ID - ADMIN Lab Interpretation (test Normal code = 62089-6) [facility] [id number] 23:01:06 Test Item Value Reference Range Interpretation Comments Hep A IgM (test code = Nonreactive Nonreactive 58956-5) REJI (test code = REJI) [employer] Service Engineer ID - ADMIN Lab Interpretation (test Normal code = 25120-8) [facility] ysrnqrky0858-35-26 23:01:06 Test Item Value Reference Range Interpretation Comments Hepatitis C Ab (test code Nonreactive Nonreactive = 95103-1) REJI (test code = REJI) [employer] Engineer ID - ADMIN Lab Interpretation (test Normal code = 99794-2) [facility] [id number] 23:01:06 Test Item Value Reference Range Interpretation Comments Hepatitis B surface Nonreactive Nonreactive antigen (test code = 5195-3) REJI (test code = REJI) Specimen is considered negative for HBsAg. Lab Interpretation (test Normal code = 87134-7) [facility], [id number] 23:01:06 Test Item Value Reference Range Interpretation Comments Hep B C IgM (test code = Nonreactive Nonreactive 17167-7) REJI (test code = REJI) [employer] Engineer ID - ADMIN Lab Interpretation (test Normal code = 57694-5) [facility], [id number] 23:01:06 Test Item Value Reference Range Interpretation Comments Hep A IgM (test code = Nonreactive Nonreactive 21023-9) REJI (test code = REJI) [employer] Engineer ID - ADMIN Lab Interpretation (test Normal code = 78893-3) [facility] [id number] 23:01:06 Test Item Value Reference Range Interpretation Comments Hepatitis C Ab (test code Nonreactive Nonreactive = 85846-0) RJEI (test code = REJI) [employer] Engineer ID - ADMIN Lab Interpretation (test Normal code = 99529-4) [facility] B surface [id number] 23:01:06 Test Item Value Reference Range Interpretation Comments Hepatitis B surface Nonreactive Nonreactive antigen (test code = 5195-3) REJI (test code = REJI) Specimen is considered negative for HBsAg. Lab Interpretation (test Normal code = 88290-3) [facility], [id number] 23:01:06 Test Item Value Reference Range Interpretation Comments Hep B C IgM (test code = Nonreactive Nonreactive 09114-1) REJI (test code = REJI) [employer] Engineer ID - ADMIN Lab Interpretation (test Normal code = 56667-7) [facility], [id number] 23:01:06 Test Item Value Reference Range Interpretation Comments Hep A IgM (test code = Nonreactive Nonreactive 72505-4) REJI (test code = REJI) [employer] Engineer ID - ADMIN Lab Interpretation (test Normal code = 37484-2) [facility] C [id number] 23:01:06 Test Item Value Reference Range Interpretation Comments Hepatitis C Ab (test code Nonreactive Nonreactive = 65947-3) REJI (test code = REJI) [employer] Engineer ID - ADMIN Lab Interpretation (test Normal code = 99358-9) [facility] B surface [id number] 23:01:06 Test Item Value Reference Range Interpretation Comments Hepatitis B surface Nonreactive Nonreactive antigen (test code = 5195-3) REJI (test code = REJI) Specimen is considered negative for HBsAg. Lab Interpretation (test Normal code = 60533-8) [facility] B core antibody, [id number] 23:01:06 Test Item Value Reference Range Interpretation Comments Hep B C IgM (test code = Nonreactive Nonreactive 88786-2) REJI (test code = REJI) [employer] Engineer ID - ADMIN Lab Interpretation (test Normal code = 11090-3) [facility], [id number] 23:01:06 Test Item Value Reference Range Interpretation Comments Hep A IgM (test code = Nonreactive Nonreactive 69441-3) REJI (test code = REJI) [employer] Engineer ID - ADMIN Lab Interpretation (test Normal code = 13080-3) [facility] C [id number] 23:01:06 Test Item Value Reference Range Interpretation Comments Hepatitis C Ab (test code Nonreactive Nonreactive = 19470-0) REJI (test code = REJI) [employer] Engineer ID - ADMIN Lab Interpretation (test Normal code = 00481-1) [facility] SURFACE [id number] 23:01:06 Test Item Value Reference Range Interpretation Comments HEPATITIS B SURFACE ANTIGEN (2) Nonreactive Nonreactive (BEAKER) (test code = 2585) Specimen is considered negative for HBsAg.HEPATITIS B CORE ANTIBODY, IGM 2022-01-23 23:01:06 Test Item Value Reference Range Interpretation Comments HEPATITIS B CORE IGM ANTIBODY Nonreactive Nonreactive (BEAKER) (test code = 645) [employer] Engineer ID - ADMINPATITIS C [id number] 23:01:06 Test Item Value Reference Range Interpretation Comments HEPATITIS C ANTIBODY (BEAKER) Nonreactive Nonreactive (test code = 367) [employer] Service Engineer ID - ADMINHEPATITIS A ANTIBODY, [id number] 23:01:06 Test Item Value Reference Range Interpretation Comments HEPATITIS A IGM ANTIBODY (BEAKER) Nonreactive Nonreactive (test code = 498) [employer] Service Engineer ID - ENHYXFJJP-AwA-5 (COVID-19) RNA [Presence] in Respiratory specimen by GUSTAVO with probe gacgddbwo4214-45-48 04:55:57 Test Item Value Reference Range Interpretation Comments SARS-CoV-2 (COVID-19) RNA Not detected [Presence] in Respiratory specimen by GUSTAVO with probe detection (test code = 75619-6) 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 employed in a Unknown healthcare setting (test code = 23553-2) Whether the patient has symptoms Unknown related to condition of interest (test code = 87969-9) Whether the patient was Unknown hospitalized for condition of interest (test code = 44639-4) Whether the patient was admitted Unknown to intensive care unit (ICU) for condition of interest (test code = 87134-1) Whether patient resides in a Unknown congregate care setting (test code = 21477-4) status (test code = Unknown 19920-6) Date and time of symptom onset Unknown (test code = 88159-9) PHI MICHAELSARS-CoV-2 (COVID-19) RNA [Presence] in Respiratory specimen by GUSTAVO with probe dwiqmzdeo8722-50-32 01:48:29 Test Item Value Reference Range Interpretation Comments SARS-CoV-2 (COVID-19) RNA Not detected [Presence] in Respiratory specimen by GUSTAVO with probe detection (test code = 86351-9) 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 employed in a Unknown healthcare setting (test code = 78419-1) Whether the patient has symptoms Unknown related to condition of interest (test code = 32520-9) Whether the patient was Unknown hospitalized for condition of interest (test code = 24692-5) Whether the patient was admitted Unknown to intensive care unit (ICU) for condition of interest (test code = 11215-5) Whether patient resides in a Unknown congregate care setting (test code = 41921-6) status (test code = Unknown 12454-9) Date and time of symptom onset Unknown (test code = 90031-9) PHI CARROLL, [id number] 08:50:00Unlisted Reason for Exam - Click Yes and Enter Reason Below->YesUnlisted Reason for Exam->diarrhea. abdominal pain. C dif colitis.Is this for enterography?->NoWill this procedure require oral contrast?->No [facility] 1960 Sex: FFINAL [...] MDReport Verified Date/Time: 09/15/2021 08:50:57 Basic Metabolic Jaoor7851-94-04 07:34:36 Test Item Value Reference Range Interpretation Comments Sodium (test code = 138 meq/L 953-925 0598-2) Potassium (test code 3.7 meq/L 3.5-5.1 Specime [...] (test code = 7.5 mg/dL 8.4-10.2 L 93727-2) EGFR (test code = 83 mL/min/1.73 [place] [address]-2) NOT ACCURATE CREATININE CLEARANCE IN PREDICTING GLOMERULAR FILTRATION RATE . ESTIMATED GFR I S NOT APPLICABLE FOR DIALYSIS PATIENTS. REJI (test code = REJI) [employer] Service Engineer ID - EOSpecimen moderately icteric Lab Interpretation Abnormal (test code = 41666-6) [facility] Metabolic [id number] 07:34:36 Test Item Value Reference Range Interpretation Comments Sodium (test code = 138 meq/L 474-237 8782-2) Potassium (test code 3.7 meq/L 3.5-5.1 Specime n = 2823-3) slightly hemolyzed Chloride (test code = 105 meq/L 98-107 2075-0) CO2 (test code = 26 meq/L 2028-04) BUN (test code = 10 mg/dL - 3094-0) Creatinine (test code 0.72 mg/dL 0.57-1.25 Specim en = 2160-0) slightly hemolyzed Glucose (test code = 60 mg/dL 70-105 L 2345-7) Calcium (test code = 7.5 mg/dL 8.4-10.2 L 97651-0) EGFR (test code = 83 mL/min/1.73 [place] [address]-2) NOT ACCURATE CREATININE CLEARANCE IN PREDICTING GLOMERULAR FILTRATION RATE . ESTIMATED GFR I S NOT APPLICABLE FOR DIALYSIS PATIENTS. REJI (test code = REJI) [employer] Machinery Service Engineer ID - EOSpecimen moderately icteric Lab Interpretation Abnormal (test code = 13360-8) [facility] Metabolic [id number] 07:34:36 Test Item Value Reference Range Interpretation Comments Sodium (test code = 138 meq/L 409-691 4611-2) Potassium (test code 3.7 meq/L 3.5-5.1 Specime [...] (test code = 7.5 mg/dL 8.4-10.2 L 61623-9) EGFR (test code = 83 mL/min/1.[place] [address]-6) NOT ACCURATE CREATININE CLEARANCE IN PREDICTING GLOMERULAR FILTRATION RATE . ESTIMATED GFR I S NOT APPLICABLE FOR DIALYSIS PATIENTS. REJI (test code = REJI) [employer] Machinery Service Engineer ID - EOSpecimen moderately icteric Lab Interpretation Abnormal (test code = 05587-6) [facility] METABOLIC [id number] 07:34:36 Test Item Value Reference Range Interpretation [...] S NOT APPLICABLE FOR DIALYSIS PATIEN TS. [employer] Machinery Service Engineer ID - EOSpecimen moderately ictericHepatic function [id number] 07:29:08 Test Item Value Reference Range Interpretation Comments Protein, Total (test 5.2 See_Comment L Specime n slightly code = 2885-2) hemolyzed [Automated message] The system which generated this result transmitted reference range : 6.0 - 8.3 gm/dL . The reference range was not used to interpr et this result as normal/abnormal . Albumin (test code = 2.1 g/dL 3.5-5.0 L Specime n slightly 03301-7) hemolyzed Total Bilirubin (test 3.9 mg/dL 0.2-1.2 [...] 1742-6) hemolyzed REJI (test code = REJI) [employer] Mach[employer] Service Engineer ID - EOSpecimen moderately icteric Lab Interpretation Abnormal (test code = 42180-0) [facility] [id number] 07:29:08 Test Item Value Reference Range Interpretation Comments Protein, Total (test 5.2 See_Comment L Specime n slightly code = 2885-2) hemolyzed [Automated message] The system which generated this result transmitted reference range : 6.0 - 8.3 gm/dL . The reference range was not used to interpr et this result as normal/abnormal . Albumin (test code = 2.1 g/dL 3.5-5.0 L Specime n slightly 95803-4) hemolyzed Total Bilirubin (test 3.9 mg/dL 0.2-1.2 [...] 1742-6) hemolyzed REJI (test code = REJI) [employer] Service Engineer ID - EOSpecimen moderately icteric Lab Interpretation Abnormal (test code = 51494-7) [facility] [id number] 07:29:08 Test Item Value Reference Range Interpretation Comments Protein, Total (test 5.2 See_Comment L Specime n slightly code = 2885-2) hemolyzed [Automated message] The system which generated this result transmitted reference range : 6.0 - 8.3 gm/dL . The reference range was not used to interpr et this result as normal/abnormal . Albumin (test code = 2.1 g/dL 3.5-5.0 L Specime n slightly 04912-5) hemolyzed Total Bilirubin (test 3.9 mg/dL 0.2-1.2 [...] 1742-6) hemolyzed REJI (test code = REJI) [employer] Service Engineer ID - EOSpecimen moderately icteric Lab Interpretation Abnormal (test code = 08732-1) [facility] [id number] 07:29:08 Test Item Value Reference Range Interpretation [...] Specimen slightly (test code = 347) hemolyzed [employer] Service Engineer ID - EOSpecimen moderately ictericProthrombin time/[id number] 06:46:58 Test Item Value Reference Interpretation Comments [...] valves. Lab Interpretation Abnormal (test code = 11878-8) [facility]/[id number] 06:46:58 Test Item Value Reference Interpretation Comments [...] valves. Lab Interpretation Abnormal (test code = 40758-4) [facility]/[id number] 06:46:58 Test Item Value Reference Interpretation Comments [...] valves. Lab Interpretation Abnormal (test code = 42126-3) [facility]/[id number] 06:46:58 Test Item Value Reference Range Interpretation Comments PROTIME (BEAKER) 22.1 seconds 11.9-14.2 H (test code = 759) INR (BEAKER) (test 1.96 See_Comment [Automat ed message] code = 370) The system ic [employer] generated this result transmitted ref erence range: <=5.90. The reference range was not used to int erpret this result as normal/abnormal . RECOMMENDED COUMADIN/WARFARIN INR THERAPY RANGESSTANDARD DOSE: 2.0 - 3.0 Includes: PROPHYLAXIS for venous thrombosis, systemic embolization; TREATMENT for venous thrombosis and/or pulmonary embolus.HIGH RISK: Target INR is 2.5-3.5 for patients with mechanical heart valves.CBC with platelet count + automated [id number] 06:38:55 Test Item Value Reference Range Interpretation Comments WBC (test code = 6690-2) 7.9 See_Comment [A utomated message] The system [employer] generated this result transmitted ref erence range: 3.5 - 10 .5 K/L. The refe rence range was not u sed to interpret this result as normal/abnor mal. RBC (test code = 789-8) 2.53 See_Comment L [Au tomated message] The system [employer] generated this result transmitted ref erence range: 3.93 - 5 .22 M/L. The refe rence range was not u sed to interpret this result as normal/abnor mal. MCHC (test code = 786-4) 30.8 See_Comment L [A utomated message] The system [employer] generated this result transmitted ref erence range: [...] L [Aut omated message] 777-3) The system [employer] generated this result transmitted ref erence range: 150 - 45 0 K/CU MM. The referen ce range was not u sed to interpret this result as normal/abnor mal. MPV (test code = 10.6 fL 9.4-12.3 75168-8) nRBC (test code = 413) 0 See_Comment [Aut omated message] The system [employer] generated this result transmitted ref erence range: [...] See_Comment [Aut omated message] 670) The system [employer] generated this result transmitted ref erence range: 1.56 - 6 .13 K/L. The refe rence range was not u sed to interpret this result as normal/abnor mal. # Lymphs (test code = 0.99 See_Comment L [Auto mated message] 414) The system [employer] generated this result transmitted ref erence range: 1.18 - 3 .74 K/L. The refe rence range was not u sed to interpret this result as normal/abnor mal. # Monos (test code = 0.83 See_Comment H [Autom ated message] 415) The system [employer] generated this result transmitted ref erence range: 0.24 - 0 .36 K/L. The refe rence range was not u sed to interpret this result as normal/abnor mal. # Eos (test code = 416) 0.33 See_Comment [Au tomated message] The system [employer] generated this result transmitted ref erence range: 0.04 - 0 .36 K/L. The refe rence range was not u sed to interpret this result as normal/abnor mal. # Baso (test code = 417) 0.04 See_Comment [A utomated message] The system [employer] generated this result transmitted ref erence range: 0.01 - 0 .08 K/L. The refe rence range was not u sed to interpret this result as normal/abnor mal. Immature 1 % 0-1 Granulocytes-Relative (test code = 2801) Lab Interpretation (test Abnormal code = 61345-9) [facility] with platelet count + automated [id number] 06:38:55 Test Item Value Reference Range Interpretation Comments WBC (test code = 6690-2) 7.9 See_Comment [A utomated message] The system [employer] generated this result transmitted ref erence range: 3.5 - 10 .5 K/L. The refe rence range was not u sed to interpret this result as normal/abnor mal. RBC (test code = 789-8) 2.53 See_Comment L [Au tomated message] The system [employer] generated this result transmitted ref erence range: 3.93 - 5 .22 M/L. The refe rence range was not u sed to interpret this result as normal/abnor mal. MCHC (test code = 786-4) 30.8 See_Comment L [A utomated message] The system [employer] generated this result transmitted ref erence range: [...] L [Aut omated message] 777-3) The system [employer] generated this result transmitted ref erence range: 150 - 45 0 K/CU MM. The referen ce range was not u sed to interpret this result as normal/abnor mal. MPV (test code = 10.6 fL 9.4-12.3 26540-1) nRBC (test code = 413) 0 See_Comment [Aut omated message] The system [employer] generated this result transmitted ref erence range: [...] See_Comment [Aut omated message] 670) The system [employer] generated this result transmitted ref erence range: 1.56 - 6 .13 K/L. The refe rence range was not u sed to interpret this result as normal/abnor mal. # Lymphs (test code = 0.99 See_Comment L [Auto mated message] 414) The system [employer] generated this result transmitted ref erence range: 1.18 - 3 .74 K/L. The refe rence range was not u sed to interpret this result as normal/abnor mal. # Monos (test code = 0.83 See_Comment H [Autom ated message] 415) The system [employer] generated this result transmitted ref erence range: 0.24 - 0 .36 K/L. The refe rence range was not u sed to interpret this result as normal/abnor mal. # Eos (test code = 416) 0.33 See_Comment [Au tomated message] The system [employer] generated this result transmitted ref erence range: 0.04 - 0 .36 K/L. The refe rence range was not u sed to interpret this result as normal/abnor mal. # Baso (test code = 417) 0.04 See_Comment [A utomated message] The system [employer] generated this result transmitted ref erence range: 0.01 - 0 .08 K/L. The refe rence range was not u sed to interpret this result as normal/abnor mal. Immature 1 % 0-1 Granulocytes-Relative (test code = 2801) Lab Interpretation (test Abnormal code = 87283-4) [facility] with platelet count + automated [id number] 06:38:55 Test Item Value Reference Range Interpretation Comments WBC (test code = 6690-2) 7.9 See_Comment [A utomated message] The system [employer] generated this result transmitted ref erence range: 3.5 - 10 .5 K/L. The refe rence range was not u sed to interpret this result as normal/abnor mal. RBC (test code = 789-8) 2.53 See_Comment L [Au tomated message] The system [employer] generated this result transmitted ref erence range: 3.93 - 5 .22 M/L. The refe rence range was not u sed to interpret this result as normal/abnor mal. MCHC (test code = 786-4) 30.8 See_Comment L [A utomated message] The system [employer] generated this result transmitted ref erence range: [...] L [Aut omated message] 777-3) The system [employer] generated this result transmitted ref erence range: 150 - 45 0 K/CU MM. The referen ce range was not u sed to interpret this result as normal/abnor mal. MPV (test code = 10.6 fL 9.4-12.3 42388-2) nRBC (test code = 413) 0 See_Comment [Aut omated message] The system [employer] generated this result transmitted ref erence range: [...] See_Comment [Aut omated message] 670) The system [employer] generated this result transmitted ref erence range: 1.56 - 6 .13 K/L. The refe rence range was not u sed to interpret this result as normal/abnor mal. # Lymphs (test code = 0.99 See_Comment L [Auto mated message] 414) The system [employer] generated this result transmitted ref erence range: 1.18 - 3 .74 K/L. The refe rence range was not u sed to interpret this result as normal/abnor mal. # Monos (test code = 0.83 See_Comment H [Autom ated message] 415) The system [employer] generated this result transmitted ref erence range: 0.24 - 0 .36 K/L. The refe rence range was not u sed to interpret this result as normal/abnor mal. # Eos (test code = 416) 0.33 See_Comment [Au tomated message] The system [employer] generated this result transmitted ref erence range: 0.04 - 0 .36 K/L. The refe rence range was not u sed to interpret this result as normal/abnor mal. # Baso (test code = 417) 0.04 See_Comment [A utomated message] The system [employer] generated this result transmitted ref erence range: 0.01 - 0 .08 K/L. The refe rence range was not u sed to interpret this result as normal/abnor mal. Immature 1 % 0-1 Granulocytes-Relative (test code = 2801) Lab Interpretation (test Abnormal code = 99532-4) [facility] W/PLT COUNT & AUTO [id number] 06:38:55 Test Item Value Reference Range Interpretation [...] = 2801) CBC W/PLT COUNT & AUTO [id number] 10:18:58 Test Item Value Reference Range Interpretation [...] (BEAKER) (test code = 2801) BASIC METABOLIC [id number] 08:06:00 Test Item Value Reference Range Interpretation [...] S NOT APPLICABLE FOR DIALYSIS PATIEN TS. Prop[employer] Machinery Service Engineer ID - MARLON Ferrera moderately ictericHEPATIC FUNCTION [id number] 08:06:00 Test Item Value Reference Range Interpretation [...] (test code = 19 U/L 6-55 347) [employer] Mach[employer] Service Engineer ID Ajay Ferrera moderately ictericPROTHROMBIN TIME/[id number] 07:51:15 Test Item Value Reference Range Interpretation Comments PROTIME (BEAKER) 20.6 seconds 11.9-14.2 H (test code = 759) INR (BEAKER) (test 1.80 See_Comment [Automat ed message] code = 370) The system [employer] generated this result transmitted ref erence range: <=5.90. The reference range was not used to int erpret this result as normal/abnormal . RECOMMENDED COUMADIN/WARFARIN INR THERAPY RANGESSTANDARD DOSE: 2.0 - 3.0 Includes: PROPHYLAXIS for venous thrombosis, systemic embolization; TREATMENT for venous thrombosis and/or pulmonary embolus.HIGH RISK: Target INR is 2.5-3.5 for patients with mechanical heart valves.HEPATIC FUNCTION [id number] 07:41:30 Test Item Value Reference Range Interpretation [...] (test code = 21 U/L 6-55 347) [employer] Service Engineer ID - PIAYA LSpecimen moderately ictericBASIC METABOLIC [id number] 07:41:29 Test Item Value Reference Range Interpretation [...] S NOT APPLICABLE FOR DIALYSIS PATIEN TS. Prop[employer] Machinery Service Engineer ID - PIAYA LSpecimen moderately ictericPROTHROMBIN TIME/[id number] 07:34:58 Test Item Value Reference Range Interpretation Comments PROTIME (BEAKER) 19.3 seconds 11.9-14.2 H (test code = 759) INR (BEAKER) (test 1.66 See_Comment [Automat ed message] code = 370) The system [employer] generated this result transmitted ref erence range: <=5.90. The reference range was not used to int erpret this result as normal/abnormal . RECOMMENDED COUMADIN/WARFARIN INR THERAPY RANGESSTANDARD DOSE: 2.0 - 3.0 Includes: PROPHYLAXIS for venous thrombosis, systemic embolization; TREATMENT for venous thrombosis and/or pulmonary embolus.HIGH RISK: Target INR is 2.5-3.5 for patients with mechanical heart valves.CBC W/PLT COUNT & AUTO [id number] 07:30:35 Test Item Value Reference Range Interpretation [...] PERCENT (BEAKER) (test code = 2801) VITAMIN [id number] 07:00:04 Test Item Value Reference Range Interpretation Comments VITAMIN B12 (BEAKER) (test code = > pg/mL 213-816 H 774) [employer] Mach[employer] Service Engineer ID - ZAC WBASIC METABOLIC [id number] 06:43:51 Test Item Value Reference Range Interpretation [...] S NOT APPLICABLE FOR DIALYSIS PATIEN TS. Propulsion Machinery Service Engineer ID - ZAC WOperator ID - MARLON LSpecimen slightly ictericVITAMIN D, 25-[id number] 05:27:33 Test Item Value Reference Range Interpretation Comments VITAMIN D 25-OH (BEAKER) (test code 4.4 ng/mL 6.6-49.9 L = 2764) Effective 05/22/2017: Reference Range ChangeNew: 6.6-49.9 ng/mL Previous: 13.0- 47.8 ng/mLRecommendedVitamin D Target Range: 30.0-40.0 ng/mLOperator ID - MARLON LC-REACTIVE [id number] 05:23:46 Test Item Value Reference Range Interpretation Comments C-REACTIVE PROTEIN (BEAKER) (test 1.00 mg/dL 0.00-0.50 H code = 676) [employer] Service Engineer ID - ZAC [id number] 05:23:45 Test Item Value Reference Range Interpretation Comments MAGNESIUM (BEAKER) (test code = 1.6 mg/dL 1.6-2.6 627) [employer] Mach[employer] Service Engineer ID - ZAC WHEPATIC FUNCTION [id number] 05:23:45 Test Item Value Reference Range Interpretation [...] (test code = 17 U/L 6-55 347) [employer] Service Engineer ID - ZAC WSpecimen slightly ictericPROTHROMBIN TIME/[id number] 04:53:27 Test Item Value Reference Range Interpretation Comments PROTIME (BEAKER) 22.4 seconds 11.9-14.2 H (test code = 759) INR (BEAKER) (test 2.00 See_Comment [Automat ed message] code = 370) The system [employer] generated this result transmitted ref erence range: <=5.90. The reference range was not used to int erpret this result as normal/abnormal . RECOMMENDED COUMADIN/WARFARIN INR THERAPY RANGESSTANDARD DOSE: 2.0 - 3.0 Includes: PROPHYLAXIS for venous thrombosis, systemic embolization; TREATMENT for venous thrombosis and/or pulmonary embolus.HIGH RISK: Target INR is 2.5-3.5 for patients with mechanical heart valves.CBC W/PLT COUNT & AUTO [id number] 04:49:49 Test Item Value Reference Range Interpretation [...] (BEAKER) (test code = 2801) Basic Metabolic [id number] 08:26:03 Test Item Value Reference Range Interpretation Comments Sodium (test code = 137 meq/L 141-911 8378-2) Potassium (test code 3.5 meq/L 3.5-5.1 = 2823-3) Chloride (test code = 109 meq/L 98-107 H 2075-0) CO2 (test code = 24 meq/L 22-29 2028-9) BUN (test code = 13 mg/dL 7-21 3094-0) Creatinine (test code 0.73 mg/dL 0.57-1.25 = 2160-0) Glucose (test code = 85 mg/dL 70-105 2345-7) Calcium (test code = 7.7 mg/dL 8.4-10.2 L 91695-4) EGFR (test code = 81 mL/min/1.[place] [address]-4) NOT ACCURATE CREATININE CLEARANCE IN PREDICTING GLOMERULAR FILTRATION RATE . ESTIMATED GFR I S NOT APPLICABLE FOR DIALYSIS PATIENTS. REJI (test code = REJI) Prop[employer] Machinery Service Engineer ID - MARLON [place] ID - DBSpecimen slightly icteric Lab Interpretation Abnormal (test code = 13007-5) [facility]OL[facility] [id number] 08:26:03 Test Item Value Reference Range Interpretation [...] S NOT APPLICABLE FOR DIALYSIS PATIEN TS. [employer] Machinery Service Engineer ID - ELODIARADHA Campbellanaid ID - DBSpecimen slightly ictericHepatic function [id number] 07:24:45 Test Item Value Reference Range Interpretation Comments Protein, Total (test 4.9 See_Comment L [Autom ated code = 2885-2) message] The system which generated this result transmitted reference range : 6.0 - 8.3 gm/dL . The reference range was not used to interpr et this result as normal/abnormal . Albumin (test code = 2.2 g/dL 3.5-5.0 L 17302-8) Total Bilirubin (test 4.0 mg/dL 0.2-1.2 H code = 1974-2) Bilirubin, Direct 1.5 mg/dL 0.1-0.5 H (test code = 1967-7) Alkaline Phosphatase 111 U/L 40-150 (test code = 6768-6) AST (test code = 53 U/L 5-34 H 1920-8) ALT (test code = 17 U/L 6-55 1742-6) REJI (test code = REJI) [employer] Mach[employer] Service Engineer ID - MARLON LSpecimen slightly icteric Lab Interpretation Abnormal (test code = 12533-7) [facility] 07:24[facility]45 Test Item Value Reference Range Interpretation Comments Magnesium (test code = 1.7 mg/dL 1.6-2.6 59104-0) REJI (test code = REJI) [employer] Mach[employer] Service Engineer ID - MARLON L Lab Interpretation (test Normal code = 79988-2) [facility] 07:24:45 Test Item Value Reference Range Interpretation Comments MAGNESIUM (BEAKER) (test code = 1.7 mg/dL 1.6-2.6 627) [employer] Mach[employer] Service Engineer ID - MARLON LHEPATIC FUNCTION [id number] 07:24:45 Test Item Value Reference Range Interpretation [...] (test code = 17 U/L 6-55 347) [employer] Service Engineer ID - MARLON LSpecimen slightly ictericProthrombin time/[id number] 06:40:57 Test Item Value Reference Interpretation Comments Range Protime (test code = 22.5 See_Comment H [Autom ated 6602-2) message] The system which generated this result transmitted reference range : 11.9 - 14.2 seconds. The reference range was not used to interpret this result as normal/abnormal . INR (test code = 2.01 See_Comment [Automated 4461-6) message] The system which generated this result [...] valves. Lab Interpretation Abnormal (test code = 95814-9) [facility]/[id number] 06:40:57 Test Item Value Reference Range Interpretation Comments PROTIME (BEAKER) 22.5 seconds 11.9-14.2 H (test code = 759) INR (BEAKER) (test 2.01 See_Comment [Automat ed message] code = 370) The system [employer] generated this result transmitted ref erence range: <=5.90. The reference range was not used to int erpret this result as normal/abnormal . RECOMMENDED COUMADIN/WARFARIN INR THERAPY RANGESSTANDARD DOSE: 2.0 - 3.0 Includes: PROPHYLAXIS for venous thrombosis, systemic embolization; TREATMENT for venous thrombosis and/or pulmonary embolus.HIGH RISK: Target INR is 2.5-3.5 for patients with mechanical heart valves.CBC with platelet count + automated [id number] 06:36:06 Test Item Value Reference Range Interpretation Comments WBC (test code = 6690-2) 10.6 See_Comment H [A utomated message] The system [employer] generated this result transmitted ref erence range: 3.5 - 10 .5 K/L. The refe rence range was not u sed to interpret this result as normal/abnor mal. RBC (test code = 789-8) 2.76 See_Comment L [Au tomated message] The system [employer] generated this result transmitted ref erence range: 3.93 - 5 .22 M/L. The refe rence range was not u sed to interpret this result as normal/abnor mal. MCHC (test code = 786-4) 31.5 See_Comment L [A utomated message] The system [employer] generated this result transmitted ref erence range: [...] L [Aut omated message] 777-3) The system [employer] generated this result transmitted ref erence range: 150 - 45 0 K/CU MM. The referen ce range was not u sed to interpret this result as normal/abnor mal. MPV (test code = 9.6 fL 9.4-12.3 34882-1) nRBC (test code = 413) 0 See_Comment [Aut omated message] The system [employer] generated this result transmitted ref erence range: [...] H [Aut omated message] 670) The system [employer] generated this result transmitted ref erence range: 1.56 - 6 .13 K/L. The refe rence range was not u sed to interpret this result as normal/abnor mal. # Lymphs (test code = 1.18 See_Comment [Auto mated message] 414) The system [employer] generated this result transmitted ref erence range: 1.18 - 3 .74 K/L. The refe rence range was not u sed to interpret this result as normal/abnor mal. # Monos (test code = 0.64 See_Comment H [Autom ated message] 415) The system [employer] generated this result transmitted ref erence range: 0.24 - 0 .36 K/L. The refe rence range was not u sed to interpret this result as normal/abnor mal. # Eos (test code = 416) 0.31 See_Comment [Au tomated message] The system [employer] generated this result transmitted ref erence range: 0.04 - 0 .36 K/L. The refe rence range was not u sed to interpret this result as normal/abnor mal. # Baso (test code = 417) 0.02 See_Comment [A utomated message] The system [employer] generated this result transmitted ref erence range: 0.01 - 0 .08 K/L. The refe rence range was not u sed to interpret this result as normal/abnor mal. Immature 1 % 0-1 Granulocytes-Relative (test code = 2801) Lab Interpretation (test Abnormal code = 85921-8) [facility] W/PLT COUNT & AUTO [id number] 06:36:06 Test Item Value Reference Range Interpretation [...] (BEAKER) (test code = 2801) BASIC METABOLIC [id number] 09:04:28 Test Item Value Reference Range Interpretation [...] S NOT APPLICABLE FOR DIALYSIS PATIEN TS. Prop[employer] Mach[employer] Service Engineer ID - DBSpecimen moderately [id number] 08:26:10 Test Item Value Reference Range Interpretation Comments MAGNESIUM (BEAKER) (test code = 1.8 mg/dL 1.6-2.6 627) [employer] Machinery Service Engineer ID - DBHEPATIC FUNCTION [id number] 08:26:10 Test Item Value Reference Range Interpretation [...] (test code = 17 U/L 6-55 347) Prop[employer] Machinery Service Engineer ID - DBSalli moderately ictericPROTHROMBIN TIME/[id number] 07:14:13 Test Item Value Reference Range Interpretation Comments PROTIME (BEAKER) 23.1 seconds 11.9-14.2 H (test code = 759) INR (BEAKER) (test 2.08 See_Comment [Automat ed message] code = 370) The system [employer] generated this result transmitted ref erence range: <=5.90. The reference range was not used to int erpret this result as normal/abnormal . RECOMMENDED COUMADIN/WARFARIN INR THERAPY RANGESSTANDARD DOSE: 2.0 - 3.0 Includes: PROPHYLAXIS for venous thrombosis, systemic embolization; TREATMENT for venous thrombosis and/or pulmonary embolus.HIGH RISK: Target INR is 2.5-3.5 for patients with mechanical heart valves.CBC W/PLT COUNT & AUTO [id number] 07:07:41 Test Item Value Reference Range Interpretation [...] (BEAKER) (test code = 2801) BASIC METABOLIC [id number] 09:04:18 Test Item Value Reference Range Interpretation [...] S NOT APPLICABLE FOR DIALYSIS PATIEN TS. [employer]ulsion Machinery Service Engineer ID - DBOperator ID - DBSpecimen moderately ictericHEPATIC FUNCTION [id number] 07:53:06 Test Item Value Reference Range Interpretation [...] (test code = 16 U/L 6-55 347) [employer] Machinery Service Engineer ID - DBSpecimen moderately ictericManual Eahwkkumiksp4624-64-17 07:50:25 Test Item Value Reference Range Interpretation [...] Ovalocytes (test code = 1+ few 477) [place] Cells (test code = 1+ few 474) Artifact (test code = Present 3432) Platelet Conc (test code Decreased = 3438) REJI (test code = ERJI) [employer] Machinery Service Engineer ID - michaela balsaraUser comments: Slide comments: Lab Interpretation (test Abnormal code = 83921-7) [facility] Wkrfonilharm4704-28-33 07:50:25 Test Item Value Reference Range Interpretation [...] = 3438) REJI (test code = REJI) [employer] Service Engineer ID - michaela balsaraUser comments: Slide comments: Lab Interpretation (test Abnormal code = 00249-6) [facility] Jiogscgcwyel9425-08-21 07:50:25 Test Item Value Reference Range Interpretation [...] = 3438) REJI (test code = REJI) [employer] Machinery Service Engineer ID - michaela balsaraUser comments: Slide comments: Lab Interpretation (test Abnormal code = 62360-9) [facility] Vnwytwefbfxe9490-48-77 07:50:25 Test Item Value Reference Range Interpretation [...] Ovalocytes (test code = 1+ few 477) [place] Cells (test code = 1+ few 474) Artifact (test code = Present 3432) Platelet Conc (test code Decreased = 3438) REJI (test code = REJI) [employer] Mach[employer] Service Engineer ID - michaela balsaraUser comments: Slide comments: Lab Interpretation (test Abnormal code = 35274-8) [facility](CELLAVISION MANUAL DIFF)2021-09-09 07:50:25 Test Item Value Reference [...] CONCENTRATION Decreased (CELLAVISION)(BEAKER) (test code = 3438) [employer] Service Engineer ID - michaela Cutler comments: Slide comments:CBC W/PLT COUNT & AUTO [id number] 07:50:24 Test Item Value Reference Range Interpretation [...] WBC 0-0 (test code = 413) PROTHROMBIN TIME/[id number] 06:28:05 Test Item Value Reference Range Interpretation Comments PROTIME (BEAKER) 24.0 seconds 11.9-14.2 H (test code = 759) INR (BEAKER) (test 2.18 See_Comment [Automat ed message] code = 370) The system 8hands generated this result transmitted ref erence range: [...] No growth in 5 days 6463-4) [facility]uncture[facility] 2021-09-08 14:01:01 Test Item Value Reference Range Interpretation Comments Result (test code = No growth in 5 days 6463-4) [facility] 2021[facility]08 14:01:01 Test Item Value Reference Range Interpretation Comments Result (test code = No growth in 5 days 6463-4) [facility] Venipuncture) 2021-09-08 14:01:01 Test Item Value Reference Range Interpretation Comments Result (test code = No growth in 5 days 6463-4) [facility] [id number] 14:01:01 Test Item Value Reference Range Interpretation Comments CULTURE (BEAKER) (test No growth in 5 days code = 1095) Lijzbbt5537-60-99 11:09:32 Test Item Value Reference Range Interpretation Comments Ammonia (test code = 35 See_Comment [Autom ated 19845-0) message] The system which generated this result transmit barron reference range : 18 - 72 mol/L . The reference range was not u sed to interpret th is result as normal/abnormal . REJI (test code = REJI) [employer] Machinery Service Engineer ID - MARLON L Lab Interpretation Normal (test code = 05162-7) [facility]2022-01-28 11:09:32 Test Item Value Reference Range Interpretation Comments Ammonia (test code = 35 See_Comment [Autom ated 20345-4) message] The system which generated this result transmit barron reference range : 18 - 72 mol/L . The reference range was not u sed to interpret th is result as normal/abnormal . REJI (test code = REJI) [employer] Mach[employer] Service Engineer ID - MARLON L Lab Interpretation Normal (test code = 18679-5) [facility] 11:09:32 Test Item Value Reference Range Interpretation Comments Ammonia (test code = 35 See_Comment [Autom ated 56830-3) message] The system which generated this result transmit barron reference range : 18 - 72 mol/L . The reference range was not u sed to interpret th is result as normal/abnormal . REJI (test code = REJI) [employer] Machinery Service Engineer ID - PIAYA L Lab Interpretation Normal (test code = 73911-1) [facility] 11:09:32 Test Item Value Reference Range Interpretation Comments Ammonia (test code = 35 See_Comment [Autom ated 19576-0) message] The system which generated this result transmit barron reference range : 18 - 72 mol/L . The reference range was not u sed to interpret th is result as normal/abnormal . REJI (test code = REJI) [employer] Mach[employer] Service Engineer ID - MARLON L Lab Interpretation Normal (test code = 65961-6) [facility] 11:09:32 Test Item Value Reference Range Interpretation Comments AMMONIA (BEAKER) (test code = 348) 35 mol/L 18-72 [employer] Machinery Service Engineer ID - MRALON LCBC W/PLT COUNT & AUTO [id number] 07:57:44 Test Item Value Reference Range Interpretation [...] CONCENTRATION Decreased (CELLAVISION)(BEAKER) (test code = 3438) [employer] Mach[employer] Service Engineer ID Ajay ChadnraMartitaperla comments: Slide comments:BASIC METABOLIC [id number] 06:46:23 Test Item Value Reference Range Interpretation [...] S NOT APPLICABLE FOR DIALYSIS PATIEN TS. Propulsion Machinery Service Engineer ID - ZAC WOODSpecimen slightly pdezfagXqkeptwwis4690-02-12 06:42:47 Test Item Value Reference Range Interpretation Comments Phosphorus (test code = 2.4 mg/dL 2.3-4.7 2777-1) REJI (test code = REJI) [employer] Mach[employer] Service Engineer ID - ZAC Neal Lab Interpretation (test Normal code = 26187-0) [facility] 06:42:47 Test Item Value Reference Range Interpretation Comments Phosphorus (test code = 2.4 mg/dL 2.3-4.7 2777-1) REJI (test code = REJI) [employer] Mach[employer] Service Engineer ID - ZAC W Lab Interpretation (test Normal code = 82883-1) [facility]2022-[facility]28 06:42:47 Test Item Value Reference Range Interpretation Comments Phosphorus (test code = 2.4 mg/dL 2.3-4.7 2777-1) REJI (test code = REJI) [employer] Machinery Service Engineer ID - ZAC W Lab Interpretation (test Normal code = 83332-0) [facility]2022-[facility]28 06:42:47 Test Item Value Reference Range Interpretation Comments Phosphorus (test code = 2.4 mg/dL 2.3-4.7 2777-1) REJI (test code = REJI) [employer] Machinery Service Engineer ID Ajay FRANK W Lab Interpretation (test Normal code = 84293-7) [facility]2022-[facility]-28 06:42:47 Test Item Value Reference Range Interpretation Comments PHOSPHORUS (BEAKER) (test code = 2.4 mg/dL 2.3-4.7 604) [employer] Mach[employer] Service Engineer ID Ajay FRANK WHEPATIC FUNCTION [id number] 06:42:47 Test Item Value Reference Range Interpretation [...] (test code = 15 U/L 6-55 347) [employer] Machinery Service Engineer ID Ajay FRANK WSpecimen slightly ictericPROTHROMBIN TIME/[id number] 05:37:24 Test Item Value Reference Range Interpretation Comments PROTIME (BEAKER) 26.6 seconds 11.9-14.2 H (test code = 759) INR (BEAKER) (test 2.48 See_Comment [Automat ed message] code = 370) The system 8hands generated this result transmitted ref erence range: [...] CONCENTRATION Decreased (CELLAVISION)(BEAKER) (test code = 3438) [employer] Machinery Service Engineer ID - Cindy PaganShielachristiana comments: Slide comments:CBC W/PLT COUNT & AUTO THSVVSHQHFFS3327-03-57 09:40:43 Test Item Value Reference Range Interpretation [...] 0-0 (test code = 413) BASIC METABOLIC [id number] 07:22:45 Test Item Value Reference Range Interpretation [...] S NOT APPLICABLE FOR DIALYSIS PATIEN TS. Prop[employer] Machinery Service Engineer ID - MARLON LSpecimen slightly mzeeutkXHQFESLMTJ8447-03-99 07:16:27 Test Item Value Reference Range Interpretation Comments PHOSPHORUS (BEAKER) (test code = 2.2 mg/dL 2.3-4.7 L 604) [employer] Machinery Service Engineer ID - MARLON LHEPATIC FUNCTION [id number] 07:16:27 Test Item Value Reference Range Interpretation [...] (test code = 17 U/L 6-55 347) [employer] Service Engineer ID - MARLON LSpecimen slightly ictericBLOOD [id number] 07:00:33 Test Item Value Reference Range Interpretation Comments CULTURE (BEAKER) (test No growth in 5 days code = 1095) PROTHROMBIN TIME/[id number] 06:15:38 Test Item Value Reference Range Interpretation Comments PROTIME (BEAKER) 25.1 seconds 11.9-14.2 H (test code = 759) INR (BEAKER) (test 2.31 See_Comment [Automat ed message] code = 370) The system 8hands generated this result transmitted ref erence range: <=5.90. The reference range was not used to int erpret this result as normal/abnormal . RECOMMENDED COUMADIN/WARFARIN INR THERAPY RANGESSTANDARD DOSE: 2.0 - 3.0 Includes: PROPHYLAXIS for venous thrombosis, systemic embolization; TREATMENT for venous thrombosis and/or pulmonary embolus.HIGH RISK: Target INR is 2.5-3.5 for patients with mechanical heart valves.Ova and Parasite Cktqnvuqzlt2400-39-54 08:26:13 Test Item Value Reference Range Interpretation Comments O&P Direct Smear (test No ova or parasites No ova or code = 18077-7) seen parasites seen REJI (test code = REJI) See scanned report Lab Interpretation (test Normal code = 54926-6) [facility] and Parasite Vuikvwdgroy0629-70-04 08:26:13 Test Item Value Reference Range Interpretation Comments O&P Direct Smear (test No ova or parasites No ova or code = 86389-5) seen parasites seen REJI (test code = REJI) See scanned report Lab Interpretation (test Normal code = 52829-9) [facility] and Parasite Ynxpevgwmez6143-33-68 08:26:13 Test Item Value Reference Range Interpretation Comments O&P Direct Smear (test No ova or parasites No ova or code = 85305-8) seen parasites seen REJI (test code = REJI) See scanned report Lab Interpretation (test Normal code = 97343-5) [facility] and Parasite Feopdrvtqyi2257-66-30 08:26:13 Test Item Value Reference Range Interpretation Comments O&P Direct Smear (test No ova or parasites No ova or code = 07814-9) seen parasites seen REJI (test code = REJI) See scanned report Lab Interpretation (test Normal code = 97336-3) [facility] 07:29:32 Test Item Value Reference Range Interpretation Comments PHOSPHORUS (BEAKER) (test code = 1.5 mg/dL 2.3-4.7 LL 604) [employer] Machinery Service Engineer ID Ajay FRANK WBASIC METABOLIC [id number] 07:09:27 Test Item Value Reference Range Interpretation [...] S NOT APPLICABLE FOR DIALYSIS PATIEN TS. Propulsion Machinery Service Engineer ID Ajay FRANK WSpecimen slightly ictericPROTHROMBIN TIME/[id number] 06:57:19 Test Item Value Reference Range Interpretation Comments PROTIME (BEAKER) 23.2 seconds 11.9-14.2 H (test code = 759) INR (BEAKER) (test 2.09 See_Comment [Automat ed message] code = 370) The system 8hands generated this result transmitted ref erence range: [...] CONCENTRATION Decreased (CELLAVISION)(BEAKER) (test code = 3438) Propulsion Machinery Service Engineer ID - nabil Julian comments: Slide comments:KTTUJUUXVC3818-76-24 15:08:54 Test Item Value Reference Range Interpretation Comments PHOSPHORUS (BEAKER) (test code = 1.2 mg/dL 2.3-4.7 LL 604) Prop[employer] Machinery Service Engineer ID - BSBASIC METABOLIC [id number] 15:04:30 Test Item Value Reference Range Interpretation [...] S NOT APPLICABLE FOR DIALYSIS PATIEN TS. Propulsion Machinery Service Engineer ID - BSSpecimen slightly ictericHEPATIC FUNCTION [id number] 15:02:35 Test Item Value Reference Range Interpretation [...] (test code = 17 U/L 6-55 347) [employer] Machinery Service Engineer ID - BSSpecimen slightly ictericPROTHROMBIN TIME/[id number] 14:50:10 Test Item Value Reference Range Interpretation Comments PROTIME (BEAKER) 24.9 seconds 11.9-14.2 H (test code = 759) INR (BEAKER) (test 2.28 See_Comment [Automat ed message] code = 370) The system 8hands generated this result transmitted ref erence range: <=5.90. The reference range was not used to int erpret this result as normal/abnormal . RECOMMENDED COUMADIN/WARFARIN INR THERAPY RANGESSTANDARD DOSE: 2.0 - 3.0 Includes: PROPHYLAXIS for venous thrombosis, systemic embolization; TREATMENT for venous thrombosis and/or pulmonary embolus.HIGH RISK: Target INR is 2.5-3.5 for patients with mechanical heart valves.CBC W/PLT COUNT & AUTO [id number] 14:44:53 Test Item Value Reference Range Interpretation [...] 0-0 (test code = 413) Clostridium difficile [facility] [id number] 21:23:26 Test Item Value Reference Range Interpretation Comments C. Difficle Toxin Positive Negative A (test code = 9947482322) C. Difficile GDH Positive Negative A Confirms Antigen (test code = Clostri dium 3693842896) difficile-assoc ia barron infection.First line therapy - [...] use. Lab Interpretation Abnormal (test code = 07746-2) [facility] GDH Duhbn2791-25-01 21:23:26 Test Item Value Reference Range Interpretation Comments C. Difficle Toxin Positive Negative A (test code = 7975164872) C. Difficile GDH Positive Negative A Confirms Antigen (test code = Clostri dium 8602019248) difficile-assoc ia barron infection.First line therapy - [...] use. Lab Interpretation Abnormal (test code = 11688-8) [facility]ost[facility] GDH [id number] 21:23:26 Test Item Value Reference Range Interpretation Comments C. Difficle Toxin Positive Negative A (test code = 4937119190) C. Difficile GDH Positive Negative A Confirms Antigen (test code = Clostri dium 4166973748) difficile-assoc ia barron infection.First line therapy - [...] use. Lab Interpretation Abnormal (test code = 31674-5) [facility]ost[facility] GDH Eemcc2432-07-20 21:23:26 Test Item Value Reference Range Interpretation Comments C. Difficle Toxin Positive Negative A (test code = 6273846308) C. Difficile GDH Positive Negative A Confirms Antigen (test code = Clostri dium 3941221787) difficile-assoc ia barron infection.First line therapy - [...] use. Lab Interpretation Abnormal (test code = 89576-0) [facility] DIFFICILE GDH [id number] 21:23:26 Test Item Value Reference Range Interpretation Comments CDT TOXIN (test code Positive Negative A = 7788093746) CDT GDH ANTIGEN Positive Negative A Confirms Maria Esther stridium (test code = difficile-assoc iated 4988980471) infection.First line therapy - oral Vancomycin. Con [...] MicrobiologyLab prior to clinical use.CT, CHEST, WITH [id number] 10:14:00Unlisted Reason for Exam - Click Yes and Enter Reason Below->No [facility] 1960 Sex: [...] prominent spleen. Small volume ascites. Signed: Quentin [facility] Verified Date/Time: 09/04/2021 10:14:08 [facility] [place] [id number] 10:14:00Unlisted Reason for Exam - Click Yes and Enter Reason Below->No Is this for enterography?->YesWill this procedure require oral contrast?->Yes [facility] 1960 Sex: FFINAL [...] CONCENTRATION Decreased (CELLAVISION)(BEAKER) (test code = 3438) Propulsion Machinery Service Engineer ID - michaela Cutler comments: Slide comments:CBC W/PLT COUNT & AUTO [id number] 07:25:32 Test Item Value Reference Range Interpretation [...] /100 WBC 0-0 (test code = 413) [id number] 06:26:19 Test Item Value Reference Range Interpretation Comments PHOSPHORUS (BEAKER) (test code = 1.5 mg/dL 2.3-4.7 LL 604) Prop[employer] Machinery Service Engineer ID - ZAC WComprehensive metabolic vwsue4331-07-58 06:18:30 Test Item Value Reference Range Interpretation Comments Protein, Total (test 4.7 See_Comment L [Autom ated code = 2885-2) message] The system which generated this result transmitted reference range : 6.0 - 8.3 gm/dL . The reference range was not used to interpr et this result as normal/abnormal . Albumin (test code = 2.7 g/dL 3.5-5.0 L 29844-4) Alkaline Phosphatase 85 U/L 40-150 (test code [...] (test code = 7.3 mg/dL 8.4-10.2 L 54573-2) AST (test code = 28 U/L 5-34 1920-8) ALT (test code = 14 U/L 6-55 1742-6) EGFR (test code = 53 mL/min/1.73 [place] [address]-3) NOT ACCURATE CREATININE CLEARANCE IN PREDICTING GLOMERULAR FILTRATION RATE . ESTIMATED GFR I S NOT APPLICABLE FOR DIALYSIS PATIENTS. REJI (test code = REJI) Prop[employer] Machinery Service Engineer ID - ZAC WSpecimen slightly icteric Lab Interpretation Abnormal (test code = 78523-9) [facility] [id number] 06:18:30 Test Item Value Reference Range Interpretation Comments Protein, Total (test 4.7 See_Comment L [Autom ated code = 2885-2) message] The system which generated this result transmitted reference range : 6.0 - 8.3 gm/dL . The reference range was not used to interpr et this result as normal/abnormal . Albumin (test code = 2.7 g/dL 3.5-5.0 L 53545-9) Alkaline Phosphatase 85 U/L 40-150 (test code [...] (test code = 7.3 mg/dL 8.4-10.2 L 36925-3) AST (test code = 28 U/L 5-34 1920-8) ALT (test code = 14 U/L 6-55 1742-6) EGFR (test code = 53 mL/min/1.[place] [address]-2) NOT ACCURATE CREATININE CLEARANCE IN PREDICTING GLOMERULAR FILTRATION RATE . ESTIMATED GFR I S NOT APPLICABLE FOR DIALYSIS PATIENTS. REJI (test code = REJI) Prop[employer] Machinery Service Engineer ID - ZAC WOODSpecnicole slightly icteric Lab Interpretation Abnormal (test code = 04715-7) [facility] [id number] 06:18:30 Test Item Value Reference Range Interpretation Comments Protein, Total (test 4.7 See_Comment L [Autom ated code = 2885-2) message] The system which generated this result transmitted reference range : 6.0 - 8.3 gm/dL . The reference range was not used to interpr et this result as normal/abnormal . Albumin (test code = 2.7 g/dL 3.5-5.0 L 59697-6) Alkaline Phosphatase 85 U/L 40-150 (test code [...] (test code = 7.3 mg/dL 8.4-10.2 L 99312-8) AST (test code = 28 U/L 5-34 1920-8) ALT (test code = 14 U/L 6-55 1742-6) EGFR (test code = 53 mL/min/1.[place] [address]-4) NOT ACCURATE CREATININE CLEARANCE IN PREDICTING GLOMERULAR FILTRATION RATE . ESTIMATED GFR I S NOT APPLICABLE FOR DIALYSIS PATIENTS. REJI (test code = REJI) Prop[employer] Machinery Service Engineer ID - ZAC WSpecimen slightly icteric Lab Interpretation Abnormal (test code = 58832-0) [facility] [id number] 06:18:30 Test Item Value Reference Range Interpretation Comments Protein, Total (test 4.7 See_Comment L [Autom ated code = 2885-2) message] The system which generated this result transmitted reference range : 6.0 - 8.3 gm/dL . The reference range was not used to interpr et this result as normal/abnormal . Albumin (test code = 2.7 g/dL 3.5-5.0 L 83820-2) Alkaline Phosphatase 85 U/L 40-150 (test code [...] (test code = 7.3 mg/dL 8.4-10.2 L 50011-9) AST (test code = 28 U/L 5-34 1920-8) ALT (test code = 14 U/L 6-55 1742-6) EGFR (test code = 53 mL/min/1.[place] [address]-1) NOT ACCURATE CREATININE CLEARANCE IN PREDICTING GLOMERULAR FILTRATION RATE . ESTIMATED GFR I S NOT APPLICABLE FOR DIALYSIS PATIENTS. REJI (test code = REJI) Prop[employer] Machinery Service Engineer ID - ZAC WSpecimen slightly icteric Lab Interpretation Abnormal (test code = 01568-3) [facility]inaCOMPREHENSIVE METABOLIC [id number] 06:18:30 Test Item Value Reference Range Interpretation [...] S NOT APPLICABLE FOR DIALYSIS PATIEN TS. Propulsion Machinery Service Engineer ID - ZAC WSpecimen slightly whtnyvyTXNLJCCTB7419-70-80 06:13:05 Test Item Value Reference Range Interpretation Comments MAGNESIUM (BEAKER) (test code = 2.3 mg/dL 1.6-2.6 627) Propulsion Machinery Service Engineer ID - ZAC W(CELLAVISION MANUAL DIFF)2021-09-03 14:33:56 [...] CONCENTRATION Decreased (CELLAVISION)(BEAKER) (test code = 3438) Propulsion Machinery Service Engineer ID - Claudine Rios comments: Slide comments:CBC W/PLT COUNT & AUTO [id number] 14:33:55 Test Item Value Reference Range Interpretation [...] (test code = 413) Hepatitis B surface enplzkmd3657-47-86 13:30:11 Test Item Value Reference Range Interpretation Comments Hep B S Ab (test code <8.0 See_Comment [Auto mated = 70291-3) message] The system which generated this result transmit barron reference range : <8.0 mIU/mL. Th e reference range was not used to interpret this result as normal/abnormal . REJI (test code = REJI) [employer] Machinery Service Engineer ID - MARLON L Lab Interpretation Normal (test code = 00319-1) [facility] [id number] 13:30:11 Test Item Value Reference Range Interpretation Comments Hep B S Ab (test code <8.0 See_Comment [Auto mated = 23447-1) message] The system which generated this result transmit barron reference range : <8.0 mIU/mL. Th e reference range was not used to interpret this result as normal/abnormal . REJI (test code = REJI) Prop[employer] Machinery Service Engineer ID - MARLON Zapien Lab Interpretation Normal (test code = 45991-9) [facility] B surface hmfvsvqn5552-50-77 13:30:11 Test Item Value Reference Range Interpretation Comments Hep B S Ab (test code <8.0 See_Comment [Auto mated = 38046-6) message] The system which generated this result transmit barron reference range : <8.0 mIU/mL. Th e reference range was not used to interpret this result as normal/abnormal . REJI (test code = REJI) Prop[employer] Machinery Service Engineer ID - MARLON Zapien Lab Interpretation Normal (test code = 39504-5) [facility] B surface bzmaqcbz1932-98-72 13:30:11 Test Item Value Reference Range Interpretation Comments Hep B S Ab (test code <8.0 See_Comment [Auto mated = 98655-8) message] The system which generated this result transmit barron reference range : <8.0 mIU/mL. Th e reference range was not used to interpret this result as normal/abnormal . REJI (test code = REJI) [employer] Machinery Service Engineer ID - MARLON Zapien Lab Interpretation Normal (test code = 39192-4) [facility] SURFACE [id number] 13:30:11 Test Item Value Reference Range Interpretation Comments HEPATITIS B SURFACE ANTIBODY < mIU/mL <8.0 (BEAKER) (test code = 647) [employer] Machinery Service Engineer ID - MARLON LHepatitis A antibody, [id number] 13:23:53 Test Item Value Reference Range Interpretation Comments Hep A IgG (test code = Nonreactive Nonreactive 71980-1) REJI (test code = REJI) [employer] Mach[employer] Service Engineer ID - MARLON Zapien Lab Interpretation (test Normal code = 95157-6) [facility] antibody, [id number] 13:23:53 Test Item Value Reference Range Interpretation Comments Hep A IgG (test code = Nonreactive Nonreactive 19946-0) REJI (test code = REJI) Prop[employer] Machinery Service Engineer ID - PIAYA L Lab Interpretation (test Normal code = 31178-5) [facility] A antibody, [id number] 13:23:53 Test Item Value Reference Range Interpretation Comments Hep A IgG (test code = Nonreactive Nonreactive 04143-4) REJI (test code = REJI) [employer] Machinery Service Engineer ID - PIAYA L Lab Interpretation (test Normal code = 09346-8) [facility] [id number] 13:23:53 Test Item Value Reference Range Interpretation Comments Hep A IgG (test code = Nonreactive Nonreactive 07023-2) REJI (test code = REJI) [employer]ulsion Machinery Service Engineer ID - PIAYA L Lab Interpretation (test Normal code = 15465-6) [facility]TIB[facility], [id number] 13:23:53 Test Item Value Reference Range Interpretation Comments HEPATITIS A IGG ANTIBODY (BEAKER) Nonreactive Nonreactive (test code = 2797) [employer] Machinery Service Engineer ID - MARLON LHepatitis B core antibody, [id number] 13:23:52 Test Item Value Reference Range Interpretation Comments Hep B Core Total Ab Nonreactive Nonreactive (test code = 55146-5) REJI (test code = REJI) [employer] Machinery Service Engineer ID - PIAYA L Lab Interpretation (test Normal code = 87780-7) [facility] C [id number] 13:23:52 Test Item Value Reference Range Interpretation Comments Hepatitis C Ab (test Nonreactive Nonreactive code = 79184-9) REJI (test code = REJI) [employer] Machinery Service Engineer ID - PIAYA L Lab Interpretation (test Normal code = 71985-9) [facility], [id number] 13:23:52 Test Item Value Reference Range Interpretation Comments Hep B Core Total Ab Nonreactive Nonreactive (test code = 15012-9) REJI (test code = REJI) [employer] Machinery Service Engineer ID - PIAYA L Lab Interpretation (test Normal code = 34109-9) [facility], [id number] 13:23:52 Test Item Value Reference Range Interpretation Comments Hep B Core Total Ab Nonreactive Nonreactive (test code = 72101-7) REJI (test code = REJI) [employer] Mach[employer] Service Engineer ID - PIAYA L Lab Interpretation (test Normal code = 76147-7) [facility], [id number] 13:23:52 Test Item Value Reference Range Interpretation Comments Hep B Core Total Ab Nonreactive Nonreactive (test code = 07204-2) REJI (test code = REJI) [employer] Mach[employer] Service Engineer ID - MARLON L Lab Interpretation (test Normal code = 14538-7) [facility] [id number] 13:23:52 Test Item Value Reference Range Interpretation Comments HEPATITIS C ANTIBODY (BEAKER) Nonreactive Nonreactive (test code = 367) [employer] Mach[employer] Service Engineer ID - MARLON LHEPATITIS B CORE ANTIBODY, [id number] 13:23:52 Test Item Value Reference Range Interpretation Comments HEPATITIS B CORE TOTAL ANTIBODY Nonreactive Nonreactive (BEAKER) (test code = 497) [employer] Mach[employer] Service Engineer ID - MARLON LHepatitis B surface [id number] 13:23:51 Test Item Value Reference Range Interpretation Comments HBsAg Screen (test code Nonreactive Nonreactive = 5195-3) REJI (test code = REJI) Specimen is considered negative for HBsAg. Lab Interpretation (test Normal code = 48102-1) [facility] SURFACE [id number] 13:23:51 Test Item Value Reference Range Interpretation [...] S NOT APPLICABLE FOR DIALYSIS PATIEN TS. Propulsion Machinery Service Engineer ID - MARLON LSpecimen slightly [id number] 12:58:51 Test Item Value Reference Range Interpretation Comments MAGNESIUM (BEAKER) (test code = 2.1 mg/dL 1.6-2.6 627) [employer] Machinery Service Engineer ID - MARLON [id number] 12:58:51 Test Item Value Reference Range Interpretation Comments PHOSPHORUS (BEAKER) (test code = 2.3 mg/dL 2.3-4.7 604) [employer] Machinery Service Engineer ID - MARLON LPROTHROMBIN TIME/[id number] 12:56:09 Test Item Value Reference Range Interpretation Comments PROTIME (BEAKER) 23.4 seconds 11.9-14.2 H (test code = 759) INR (BEAKER) (test 2.10 See_Comment [Automat ed message] code = 370) The system 8hands generated this result transmitted ref erence range: <=5.90. The reference range was not used to int erpret this result as normal/abnormal . RECOMMENDED COUMADIN/WARFARIN INR THERAPY RANGESSTANDARD DOSE: 2.0 - 3.0 Includes: PROPHYLAXIS for venous thrombosis, systemic embolization; TREATMENT for venous thrombosis and/or pulmonary embolus.HIGH RISK: Target INR is 2.5-3.5 for patients with mechanical heart valves.Urine [id number] 12:15:06 Test Item Value Reference Range Interpretation Comments Result (test code = 6463-4) [facility] [id number] 12:15:06 Test Item Value Reference Range Interpretation Comments Result (test code = 6463-4) No growth [facility] [id number] 12:15:06 Test Item Value Reference Range Interpretation Comments Result (test code = 6463-4) No growth [facility] [id number] 12:15:06 Test Item Value Reference Range Interpretation Comments Result (test code = 6463-4) No growth [facility] Profile by PCR -ID [id number] 12:43:22 Test Item Value Reference Range Interpretation Comments CAMPYLOBACTER (PCR) Not detected Not detected (test code = 69895-9) PLESIOMONAS SHIGELLOIDES Not detected Not detected (PCR) (test code = 41359-1) SALMONELLA (PCR) (test Not detected Not detected code = 38854-7) YERSINIA ENTEROCOLITICA Not detected Not detected (PCR) (test code = 93407-6) VIBRIO CHOLERAE (PCR) Not detected Not detected (test code = 68422-6) ENTEROAGGREGATIVE E. Not detected Not detected COLI (EAEC) BY PCR (test code = 09383-9) ENTEROPATHOGENIC E. COLI Not detected Not detected (EPEC) BY PCR (test code = 18013-8) ENTEROTOXIGENIC E. COLI Not detected Not detected (ETEC) LT/ST BY PCR (test code = 68722-1) SHIGA-LIKE Not detected Not detected TOXIN-PRODUCING E. COLI (STEC) STX1/STX2 (test code = 27736-3) E. COLI O157 (PCR) (test code = 82065-7) SHIGELLA/ENTEROINVASIVE Not detected Not detected E. COLI (EIEC) BY PCR (test code = 19612-4) CRYPTOSPORIDIUM (PCR) Not detected Not detected (test code = 25630-3) CYCLOSPORA CAYETANENSIS Not detected Not detected (PCR) (test code = 07100-6) ENTAMOEBA HISTOLYTICA Not detected Not detected (PCR) (test code = 75959-3) GIARDIA LAMBLIA (PCR) Not detected Not detected (test code = 13961-8) ADENOVIRUS F 40/41 (PCR) Not detected Not detected (test code = 44000-1) ASTROVIRUS (PCR) (test Not detected Not detected code = 04227-2) NOROVIRUS GI/GII (PCR) Not detected Not detected (test code = 27348-3) ROTAVIRUS A (PCR) (test Not detected Not detected code = 51927-1) SAPOVIRUS (I, II, IV, V) Not detected Not detected BY PCR (test code = 42398-7) VIBRIO Not detected Not detected (PARAHAEMOLYTICUS, VULNIFICUS) (test code = 62690-7) REJI (test code = REJI) Other viruses, [...] [facility] Molecular Diagnostics Laboratory using the 800APP Gastrointestinal Panel. It is FDA cleared and has been verified and approved by the [facility] Molecular Diagnostics Laboratory for clinical use. This laboratory is CLIA-certified and [employer] (CAP)-accredited to perform high complexity testing. [facility] Path[facility] Profile by PCR -ID [id number] 12:43:22 Test Item Value Reference Range Interpretation Comments CAMPYLOBACTER PCR (test Not detected Not detected code = 77401-9) PLESIOMONAS SHIGELLOIDES Not detected Not detected (PCR) (test code = 49395-6) SALMONELLA (PCR) (test Not detected Not detected code = 75909-2) YERSINIA ENTEROCOLITICA Not detected Not detected (PCR) (test code = 13187-3) VIBRIO CHOLERAE (PCR) Not detected Not detected (test code = 83009-5) ENTEROAGGREGATIVE E. Not detected Not detected COLI (EAEC) BY PCR (test code = 42197-9) ENTEROPATHOGENIC E. COLI Not detected Not detected (EPEC) BY PCR (test code = 85845-7) ENTEROTOXIGENIC E. COLI Not detected Not detected (ETEC) LT/ST BY PCR (test code = 82757-1) SHIGA-LIKE Not detected Not detected TOXIN-PRODUCING E. COLI (STEC) STX1/STX2 (test code = 14180-7) E. COLI O157 (PCR) (test code = 07253-2) SHIGELLA/ENTEROINVASIVE Not detected Not detected E. COLI (EIEC) BY PCR (test code = 61269-5) CRYPTOSPORIDIUM (PCR) Not detected Not detected (test code = 95636-4) CYCLOSPORA CAYETANENSIS Not detected Not detected (PCR) (test code = 31386-0) ENTAMOEBA HISTOLYTICA Not detected Not detected (PCR) (test code = 32403-0) GIARDIA LAMBLIA (PCR) Not detected Not detected (test code = 61952-0) ADENOVIRUS F 40/41 (PCR) Not detected Not detected (test code = 25695-5) ASTROVIRUS (PCR) (test Not detected Not detected code = 14356-6) NOROVIRUS GI/GII (PCR) Not detected Not detected (test code = 34401-2) ROTAVIRUS A (PCR) (test Not detected Not detected code = 72729-8) SAPOVIRUS (I, II, IV, V) Not detected Not detected BY PCR (test code = 15276-2) VIBRIO Not detected Not detected (PARAHAEMOLYTICUS, VULNIFICUS) (test code = 84324-5) REJI (test code = REJI) Other viruses, [...] [facility] Molecular Diagnostics Laboratory using the 800APP Gastrointestinal Panel. It is FDA cleared and has been verified and approved by the [facility] Molecular Diagnostics Laboratory for clinical use. This laboratory is CLIA-certified and [employer] ([employer])-accredited to perform high complexity testing. [facility] by [facility] -ID [id number] 12:43:22 Test Item Value Reference Range Interpretation Comments CAMPYLOBACTER PCR (test Not detected Not detected code = 32902-5) PLESIOMONAS SHIGELLOIDES Not detected Not detected (PCR) (test code = 44386-5) SALMONELLA (PCR) (test Not detected Not detected code = 88628-0) YERSINIA ENTEROCOLITICA Not detected Not detected (PCR) (test code = 02826-4) VIBRIO CHOLERAE (PCR) Not detected Not detected (test code = 78456-2) ENTEROAGGREGATIVE E. Not detected Not detected COLI (EAEC) BY PCR (test code = 75501-1) ENTEROPATHOGENIC E. COLI Not detected Not detected (EPEC) BY PCR (test code = 79953-9) ENTEROTOXIGENIC E. COLI Not detected Not detected (ETEC) LT/ST BY PCR (test code = 02316-7) SHIGA-LIKE Not detected Not detected TOXIN-PRODUCING E. COLI (STEC) STX1/STX2 (test code = 71338-8) E. COLI O157 (PCR) (test code = 11404-6) SHIGELLA/ENTEROINVASIVE Not detected Not detected E. COLI (EIEC) BY PCR (test code = 40811-0) CRYPTOSPORIDIUM (PCR) Not detected Not detected (test code = 64657-9) CYCLOSPORA CAYETANENSIS Not detected Not detected (PCR) (test code = 93002-3) ENTAMOEBA HISTOLYTICA Not detected Not detected (PCR) (test code = 10424-0) GIARDIA LAMBLIA (PCR) Not detected Not detected (test code = 21319-4) ADENOVIRUS F 40/41 (PCR) Not detected Not detected (test code = 83279-2) ASTROVIRUS (PCR) (test Not detected Not detected code = 69653-5) NOROVIRUS GI/GII (PCR) Not detected Not detected (test code = 30002-6) ROTAVIRUS A (PCR) (test Not detected Not detected code = 24112-2) SAPOVIRUS (I, II, IV, V) Not detected Not detected BY PCR (test code = 43476-0) VIBRIO Not detected Not detected (PARAHAEMOLYTICUS, VULNIFICUS) (test code = 65523-8) REJI (test code = REJI) Other viruses, [...] [facility] Molecular Diagnostics Laboratory using the 800APP Gastrointestinal Panel. It is FDA cleared and has been verified and approved by the [facility] Molecular Diagnostics Laboratory for clinical use. This laboratory is CLIA-certified and [employer] [place] ([employer])-accredited to perform high complexity testing. [facility] by PCR -ID [id number] 12:43:22 Test Item Value Reference Range Interpretation Comments CAMPYLOBACTER PCR (test Not detected Not detected code = 85716-1) PLESIOMONAS SHIGELLOIDES Not detected Not detected (PCR) (test code = 20303-9) SALMONELLA (PCR) (test Not detected Not detected code = 12479-8) YERSINIA ENTEROCOLITICA Not detected Not detected (PCR) (test code = 22404-1) VIBRIO CHOLERAE (PCR) Not detected Not detected (test code = 71018-0) ENTEROAGGREGATIVE E. Not detected Not detected COLI (EAEC) BY PCR (test code = 63689-0) ENTEROPATHOGENIC E. COLI Not detected Not detected (EPEC) BY PCR (test code = 25664-4) ENTEROTOXIGENIC E. COLI Not detected Not detected (ETEC) LT/ST BY PCR (test code = 50395-6) SHIGA-LIKE Not detected Not detected TOXIN-PRODUCING E. COLI (STEC) STX1/STX2 (test code = 17457-8) E. COLI O157 (PCR) (test code = 93122-8) SHIGELLA/ENTEROINVASIVE Not detected Not detected E. COLI (EIEC) BY PCR (test code = 25466-3) CRYPTOSPORIDIUM (PCR) Not detected Not detected (test code = 74485-7) CYCLOSPORA CAYETANENSIS Not detected Not detected (PCR) (test code = 15152-0) ENTAMOEBA HISTOLYTICA Not detected Not detected (PCR) (test code = 76475-2) GIARDIA LAMBLIA (PCR) Not detected Not detected (test code = 24098-2) ADENOVIRUS F 40/41 (PCR) Not detected Not detected (test code = 93285-7) ASTROVIRUS (PCR) (test Not detected Not detected code = 82177-1) NOROVIRUS GI/GII (PCR) Not detected Not detected (test code = 23323-8) ROTAVIRUS A (PCR) (test Not detected Not detected code = 56446-3) SAPOVIRUS (I, II, IV, V) Not detected Not detected BY PCR (test code = 74838-6) VIBRIO Not detected Not detected (PARAHAEMOLYTICUS, VULNIFICUS) (test code = 08825-3) REJI (test code = REJI) Other viruses, [...] [facility] Molecular Diagnostics Laboratory using the 800APP Gastrointestinal Panel. It is FDA cleared and has been verified and approved by the [facility] Molecular Diagnostics Laboratory for clinical use. This laboratory is CLIA-certified and [employer] [place] (CAP)-accredited to perform high complexity testing. [facility]FILE BY [id number] 12:43:22 Test Item Value Reference Range Interpretation Comments CAMPYLOBACTER (PCR) (test code = Not detected Not detected 20160214) PLESIOMONAS SHIGELLOIDES (PCR) Not detected Not detected (test code = 20160218) SALMONELLA (PCR) (test code = Not detected Not detected ) YERSINIA ENTEROCOLITICA (PCR) Not detected Not detected (test code = 2438224) VIBRIO CHOLERAE (PCR) (test code Not detected Not detected = 4587317) ENTEROAGGREGATIVE E. COLI (EAEC) Not detected Not detected BY PCR (test code = 5013790) ENTEROPATHOGENIC E. COLI (EPEC) Not detected Not detected BY PCR (test code = 1500154) ENTEROTOXIGENIC E. COLI (ETEC) Not detected Not detected LT/ST BY PCR (test code = 5473644) SHIGA-LIKE TOXIN-PRODUCING E. Not detected Not detected COLI (STEC) STX1/STX2 (test code = 9673538) E. COLI O157 (PCR) (test code = 7564487) SHIGELLA/ENTEROINVASIVE E. COLI Not detected Not detected (EIEC) BY PCR (test code = 1176018) CRYPTOSPORIDIUM (PCR) (test code Not detected Not detected = 20160320) CYCLOSPORA CAYETANENSIS (PCR) Not detected Not detected (test code = 6702941) ENTAMOEBA HISTOLYTICA (PCR) Not detected Not detected (test code = 1532777) GIARDIA LAMBLIA (PCR) (test code Not detected Not detected = 20160413) ADENOVIRUS F 40/41 (PCR) (test Not detected Not detected code = 7201387) ASTROVIRUS (PCR) (test code = Not detected Not detected 20160415) NOROVIRUS GI/GII (PCR) (test Not detected Not detected code = 20160416) ROTAVIRUS A (PCR) (test code = Not detected Not detected 20160417) SAPOVIRUS (I, II, IV, V) BY PCR Not detected Not detected (test code = 2857274) VIBRIO (PARAHAEMOLYTICUS, Not detected Not detected VULNIFICUS) (test code = 1517123) Other viruses, parasites and bacteria not targeted [...] [facility] Molecular Diagnostics Laboratory using the 800APP Gastrointestinal Panel. It is FDA cleared and [...] CONCENTRATION Decreased (CELLAVISION)(BEAKER) (test code = 3438) Propulsion Machinery Service Engineer ID - Phyllis comments: Slide comments:CBC W/PLT COUNT & AUTO [id number] 08:49:57 Test Item Value Reference Range Interpretation [...] (test code = 413) Vitamin B12 and [id number] 07:20:11 Test Item Value Reference Range Interpretation Comments Vitamin B12 (test 1116 pg/mL 213-816 H code = 2132-9) Folate (test code = 3.50 ng/mL See_Comment L [Automa barron 2284-8) message] The system which generated this result transmit barron reference range : >=7.00. The reference range was not used to interpret this result as normal/abnormal . REJI (test code = REJI) Propulsion Machinery Service Engineer ID - SHAQUILLE Reynolds Lab Interpretation Abnormal (test code = 60285-8) [facility] [id number] 07:20:11 Test Item Value Reference Range Interpretation Comments Vitamin B12 (test 1116 pg/mL 213-816 H code = 2132-9) Folate (test code = 3.50 ng/mL See_Comment L [Automa barron 2284-8) message] The system which generated this result transmit barron reference range : >=7.00. The reference range was not used to interpret this result as normal/abnormal . REJI (test code = REJI) [employer] Machinery Service Engineer ID - SHAQUILLE Reynolds Lab Interpretation Abnormal (test code = 45594-6) [facility] and [id number] 07:20:11 Test Item Value Reference Range Interpretation Comments Vitamin B12 (test 1116 pg/mL 213-816 H code = 2132-9) Folate (test code = 3.50 ng/mL See_Comment L [Automa barron 2284-8) message] The system which generated this result transmit barron reference range : >=7.00. The reference range was not used to interpret this result as normal/abnormal . REJI (test code = REJI) [employer] Machinery Service Engineer ID - SHAQUILLE Reynolds Lab Interpretation Abnormal (test code = 67920-0) [facility] [id number] 07:20:11 Test Item Value Reference Range Interpretation Comments Vitamin B12 (test 1116 pg/mL 213-816 H code = 2132-9) Folate (test code = 3.50 ng/mL See_Comment L [Automa barron 2284-8) message] The system which generated this result transmit barron reference range : >=7.00. The reference range was not used to interpret this result as normal/abnormal . REJI (test code = REJI) Propulsion Machinery Service Engineer ID - SHAQUILLE Reynolds Lab Interpretation Abnormal (test code = 12582-4) [facility] AND [id number] 07:20:11 Test Item Value Reference Range Interpretation Comments VITAMIN B12 (BEAKER) 1116 pg/mL 213-816 H (test code = 774) FOLATE (BEAKER) 3.50 ng/mL See_Comment L [Automated message] (test code = 362) The system which generated this result transmitted ref erence range: >=7.00. The reference range was not used to interpr et this result as normal/abnormal . Prop[employer] Machinery Service Engineer ID - SHAQUILLE MCOMPREHENSIVE METABOLIC [id number] 06:57:06 Test Item Value Reference Range Interpretation [...] S NOT APPLICABLE FOR DIALYSIS PATIEN TS. Prop[employer] Machinery Service Engineer ID - SHAQUILLE MSpecimen slightly ictericC-Reactive [id number] 06:55:26 Test Item Value Reference Range Interpretation Comments CRP (test code = 676) 4.64 mg/dL 0.00-0.50 H REJI (test code = REJI) Propulsion Machinery Service Engineer ID Ajay Reynolds Lab Interpretation (test Abnormal code = 29888-5) [facility]20[facility] 06:55:26 Test Item Value Reference Range Interpretation Comments PHOSPHORUS (BEAKER) (test code = 1.8 mg/dL 2.3-4.7 L 604) Prop[employer] Machinery Service Engineer ID Ajay CORBIN MC-REACTIVE [id number] 06:55:26 Test Item Value Reference Range Interpretation Comments C-REACTIVE PROTEIN (BEAKER) (test 4.64 mg/dL 0.00-0.50 H code = 676) [employer] Machinery Service Engineer ID Ajay CORBIN [id number] 06:55:25 Test Item Value Reference Range Interpretation Comments MAGNESIUM (BEAKER) (test code = 2.3 mg/dL 1.6-2.6 627) Propulsion Machinery Service Engineer ID Ajay CORBIN [place], TIBC, % sat. (without ferritin)2021-09-02 06:44:00 Test Item Value Reference Range Interpretation Comments Iron (test code = 2498-4) 28.0 ug/dL 40.0-160.0 L TIBC (test code = 2500-7) 243 ug/dL 250-450 L Iron % Saturation (test 12 % 20-55 L code = 2502-3) REJI (test code = REJI) [employer] Machinery Service Engineer ID Ajay Reynolds Lab Interpretation (test Abnormal code = 02237-0) [facility], [facility]BC, % sat. (without ferritin)2021-09-02 06:44:00 Test Item Value Reference Range Interpretation Comments Iron (test code = 2498-4) 28.0 ug/dL 40.0-160.0 L TIBC (test code = 2500-7) 243 ug/dL 250-450 L Iron % Saturation (test 12 % 20-55 L code = 2502-3) REJI (test code = REJI) Prop[employer] Machinery Service Engineer ID Ajay CORBIN M Lab Interpretation (test Abnormal code = 29365-0) [facility], TIBC, % sat. (without ferritin)2021-09-02 06:44:00 Test Item Value Reference Range Interpretation Comments Iron (test code = 2498-4) 28.0 ug/dL 40.0-160.0 L TIBC (test code = 2500-7) 243 ug/dL 250-450 L Iron % Saturation (test 12 % 20-55 L code = 2502-3) REJI (test code = REJI) Prop[employer] Machinery Service Engineer ID - SHAQUILLE Rodolfo Lab Interpretation (test Abnormal code = 43158-8) [facility], TIBC, % sat. (without ferritin)2021-09-02 06:44:00 Test Item Value Reference Range Interpretation Comments Iron (test code = 2498-4) 28.0 ug/dL 40.0-160.0 L TIBC (test code = 2500-7) 243 ug/dL 250-450 L Iron % Saturation (test 12 % 20-55 L code = 2502-3) REJI (test code = REJI) Prop[employer] Machinery Service Engineer ID - SHAQUILLE M Lab Interpretation (test Abnormal code = 41906-9) [facility], TIBC, % SAT. (WITHOUT FERRITIN)2021-09-02 06:44:00 Test Item Value Reference Range Interpretation Comments IRON (BEAKER) (test code = 547) 28.0 ug/dL 40.0-160.0 L TOTAL IRON BINDING CAPACITY 243 ug/dL 250-450 L (BEAKER) (test code = 769) IRON % SATURATION (2) (BEAKER) 12 % 20-55 L (test code = 2590) [employer] Machinery Service Engineer ID - SHAQUILLE MCT, BRAIN, WITHOUT [id number] 03:54:00Unlisted Reason for Exam - Click Yes and Enter Reason Below->[facility] 1960 Sex: FFINAL [...] MDReport Verified Date/Time: 09/02/2021 03:54:37 U/S, ABDOMINAL, [id number] 03:38:00 Abdomen limited area? Add comment if clarification is needed.->Right upper quadrantReason for exam:->evaluate biliary tree/liver [facility] 1960 Sex: FFINAL [...] UA (test Hazy code = 5767-9) Specific [place], UA 1.029 1.001-1.035 (test code = 5811-5) pH, UA (test code = 6.0 5.0-8.0 5803-2) Protein, UA (test 30 mg/dL Negative A code = 20072-4) Glucose, UA (test Negative Negative code = 365) Ketones, UA (test Negative Negative code = 2514-8) Bilirubin, UA (test Negative Negative code = 20475-6) Blood, UA (test code Small Negative A = 37039-9) Nitrite, UA (test Negative Negative code = 5802-4) Leukocytes, UA (test Moderate Negative A code = 5799-2) Urobilinogen, UA 0.2 mg/dL 0.2-1.0 (test code = 17680-2) RBC, UA (test code = 18 See_Comment [Autom ated 36806-5) message] The system which generated this result [...] . Bacteria, UA (test Rare code = 34746-4) Mucus (test code = Moderate 8247-9) Squam Epithel, UA 2 See_Comment [Automate d (test code = 58371-4) messag e] The system which generated this result transmit barron reference range : /HPF. The reference range was not used to interpret this result as normal/abnormal . Hyaline Casts, UA 3 See_Comment [Automate d (test code = 28607-5) messag e] The system which generated this result transmit barron reference range : /LPF. The reference range was not used to interpret this result as normal/abnormal . Crystals, Urine (test None Seen code = 95482-7) Amorphous Crystals Rare (test code = 04349-4) Specimen Source (test code = 2795) REJI (test code = REJI) [employer] Mach[employer] Service Engineer ID - [auto]Propulsion Machinery Service Engineer ID - tech Lab Interpretation Abnormal (test code = 39182-9) [facility]/Microscopic + Reflex to Culture 2021-09-02 02:29:12 Test Item Value Reference Range Interpretation Comments Color, UA (test code Brown = 5778-6) Clarity, UA (test Hazy code = 5767-9) Specific [place], UA 1.029 1.001-1.035 (test code = 5811-5) pH, UA (test code = 6.0 5.0-8.0 5803-2) Protein, UA (test 30 mg/dL Negative A code = 62781-2) Glucose, UA (test Negative Negative code = 365) Ketones, UA (test Negative Negative code = 2514-8) Bilirubin, UA (test Negative Negative code = 93792-0) Blood, UA (test code Small Negative A = 72854-3) Nitrite, UA (test Negative Negative code = 5802-4) Leukocytes, UA (test Moderate Negative A code = 5799-2) Urobilinogen, UA 0.2 mg/dL 0.2-1.0 (test code = 33347-8) RBC, UA (test code = 18 See_Comment [Autom ated 81598-6) message] The system which generated this result [...] . Bacteria, UA (test Rare code = 65399-1) Mucus (test code = Moderate 8247-9) Squam Epithel, UA 2 See_Comment [Automate d (test code = 18016-3) messag e] The system which generated this result transmit barron reference range : /HPF. The reference range was not used to interpret this result as normal/abnormal . Hyaline Casts, UA 3 See_Comment [Automate d (test code = 66960-9) messag e] The system which generated this result transmit barron reference range : /LPF. The reference range was not used to interpret this result as normal/abnormal . Crystals, Urine (test None Seen code = 57895-3) Amorphous Crystals Rare (test code = 84367-7) Specimen Source (test code = 2795) REJI (test code = REJI) Propulsion Machinery Service Engineer ID - [auto]Propulsion Machinery Service Engineer ID - tech Lab Interpretation Abnormal (test code = 38029-4) [facility] Culture 2021-09-02 02:29:12 Test Item Value Reference Range Interpretation Comments Color, UA (test code Brown = 5778-6) Clarity, UA (test Hazy code = 5767-9) Specific [place], UA 1.029 1.001-1.035 (test code = 5811-5) pH, UA (test code = 6.0 5.0-8.0 5803-2) Protein, UA (test 30 mg/dL Negative A code = 75555-1) Glucose, UA (test Negative Negative code = 365) Ketones, UA (test Negative Negative code = 2514-8) Bilirubin, UA (test Negative Negative code = 56179-2) Blood, UA (test code Small Negative A = 37126-5) Nitrite, UA (test Negative Negative code = 5802-4) Leukocytes, UA (test Moderate Negative A code = 5799-2) Urobilinogen, UA 0.2 mg/dL 0.2-1.0 (test code = 35749-9) RBC, UA (test code = 18 See_Comment [Autom ated 25396-2) message] The system which generated this result [...] . Bacteria, UA (test Rare code = 86682-4) Mucus (test code = Moderate 8247-9) Squam Epithel, UA 2 See_Comment [Automate d (test code = 42037-8) messag e] The system which generated this result transmit barron reference range : /HPF. The reference range was not used to interpret this result as normal/abnormal . Hyaline Casts, UA 3 See_Comment [Automate d (test code = 51441-5) messag e] The system which generated this result transmit barron reference range : /LPF. The reference range was not used to interpret this result as normal/abnormal . Crystals, Urine (test None Seen code = 63997-1) Amorphous Crystals Rare (test code = 81340-3) Specimen Source (test code = 2795) REJI (test code = REJI) Propulsion Machinery Service Engineer ID - [auto]Propulsion Machinery Service Engineer ID - tech Lab Interpretation Abnormal (test code = 83519-2) [facility] Reflex [facility] Culture 2021-09-02 02:29:12 Test Item Value Reference Range Interpretation Comments Color, UA (test code Brown = 5778-6) Clarity, UA (test Hazy code = 5767-9) Specific [place], UA 1.029 1.001-1.035 (test code = 5811-5) pH, UA (test code = 6.0 5.0-8.0 5803-2) Protein, UA (test 30 mg/dL Negative A code = 48102-2) Glucose, UA (test Negative Negative code = 365) Ketones, UA (test Negative Negative code = 2514-8) Bilirubin, UA (test Negative Negative code = 98134-7) Blood, UA (test code Small Negative A = 28465-4) Nitrite, UA (test Negative Negative code = 5802-4) Leukocytes, UA (test Moderate Negative A code = 5799-2) Urobilinogen, UA 0.2 mg/dL 0.2-1.0 (test code = 46442-3) RBC, UA (test code = 18 See_Comment [Autom ated 68575-1) message] The system which generated this result [...] . Bacteria, UA (test Rare code = 80478-0) Mucus (test code = Moderate 8247-9) Squam Epithel, UA 2 See_Comment [Automate d (test code = 48202-9) messag e] The system which generated this result transmit barron reference range : /HPF. The reference range was not used to interpret this result as normal/abnormal . Hyaline Casts, UA 3 See_Comment [Automate d (test code = 14898-0) messag e] The system which generated this result transmit barron reference range : /LPF. The reference range was not used to interpret this result as normal/abnormal . Crystals, Urine (test None Seen code = 98555-8) Amorphous Crystals Rare (test code = 94522-7) Specimen Source (test code = 2795) REJI (test code = REJI) Propulsion Machinery Service Engineer ID - [auto]Propulsion Machinery Service Engineer ID - tech Lab Interpretation Abnormal (test code = 10897-1) [facility] UR[facility] [id number] 02:29:12 Test Item Value Reference Range Interpretation [...] = 1584) SOURCE(BEAKER) (test code = 2795) Propulsion Machinery Service Engineer ID - [auto]Propulsion Machinery Service Engineer ID - techRAD, CHEST, 1 VIEW, NON [id number] 01:45:00Reason for exam:->leukocytosis, unable to provide historyShould this be performed at the bedside?->Yes [facility] 1960 Sex: FFINAL [...] 09/02/2021 01:45:23 CBC W/PLT COUNT & AUTO [id number] 00:20:23 Test Item Value Reference Range Interpretation [...] CONCENTRATION Decreased (CELLAVISION)(BEAKER) (test code = 3438) Propulsion Machinery Service Engineer ID - Curtis MorenoBradchristiana comments: Slide comments:PT/[id number] 23:44:49 Test Item Value Reference Interpretation Comments Range Protime (test code = 22.8 See_Comment H [Autom ated 5902-2) message] The system which generated this result transmitted reference range : 11.9 - 14.2 seconds. The reference range was not used to interpret this result as normal/abnormal . INR (test code = 2.04 See_Comment [Automated 0831-6) message] The system which generated this result transmitted reference range : <=5.90. The reference range was not used to interpret this result as normal/abnormal . PTT (test code = 35.2 See_Comment [Automated 18260-6) message] The system which generated this result [...] valves. Lab Interpretation Abnormal (test code = 06409-7) [facility]/[id number] 23:44:49 Test Item Value Reference Interpretation Comments [...] PTT (test code = 35.2 See_Comment [Automated 55583-8) message] The system which generated this result [...] valves. Lab Interpretation Abnormal (test code = 45065-1) [facility]/[id number] 23:44:49 Test Item Value Reference Interpretation Comments [...] PTT (test code = 35.2 See_Comment [Automated 39942-2) message] The system which generated this result [...] valves. Lab Interpretation Abnormal (test code = 86341-5) [facility]/[id number] 23:44:49 Test Item Value Reference Interpretation Comments Range Protime (test code = 22.8 See_Comment H [Autom ated 5902-2) message] The system which generated this result transmitted reference range : 11.9 - 14.2 seconds. The reference range was not used to interpret this result as normal/abnormal . INR (test code = 2.04 See_Comment [Automated 4401-6) message] The system which generated this result transmitted reference range : <=5.90. The reference range was not used to interpret this result as normal/abnormal . PTT (test code = 35.2 See_Comment [Automated 58182-1) message] The system which generated this result [...] valves. Lab Interpretation Abnormal (test code = 21741-5) [facility]PT/[id number] 23:44:49 Test Item Value Reference Range Interpretation [...] for patients with mechanical heart valves.BASIC METABOLIC [id number] 23:31:12 Test Item Value Reference Range Interpretation [...] S NOT APPLICABLE FOR DIALYSIS PATIEN TS. Propulsion Machinery Service Engineer ID - DBSpecimen slightly ordtgjqRSXSDIGNQ9234-13-71 23:19:46 Test Item Value Reference Range Interpretation Comments MAGNESIUM (BEAKER) (test code = 1.8 mg/dL 1.6-2.6 627) Propulsion Machinery Service Engineer ID - AAPHEXQGITJB4714-07-28 23:19:46 Test Item Value Reference Range Interpretation Comments PHOSPHORUS (BEAKER) (test code = 1.9 mg/dL 2.3-4.7 L 604) Propulsion Machinery Service Engineer ID - DBHEPATIC FUNCTION [id number] 23:19:46 Test Item Value Reference Range Interpretation [...] (test code = 14 U/L 6-55 347) Propulsion Machinery Service Engineer ID - DBSpecimen slightly ictericLactic acid, fvtsrg6274-06-67 23:13:03 Test Item Value Reference Range Interpretation Comments Lactate, Venous (test 2.88 mmol/L 0.50-2.20 H code = 2872) REJI (test code = REJI) Propulsion Machinery Service Engineer ID - DBSpecimen slightly icteric Lab Interpretation (test Abnormal code = 08315-0) [facility]inaL[facility], [id number] 23:13:03 Test Item Value Reference Range Interpretation Comments Lactate, Venous (test 2.88 mmol/L 0.50-2.20 H code = 2872) REJI (test code = REJI) Propulsion Machinery Service Engineer ID - DBSpecimen slightly icteric Lab Interpretation (test Abnormal code = 25668-4) [facility]inaL[facility] acid, [id number] 23:13:03 Test Item Value Reference Range Interpretation Comments Lactate, Venous (test 2.88 mmol/L 0.50-2.20 H code = 2872) REJI (test code = REJI) Propulsion Machinery Service Engineer ID - DBSpecimen slightly icteric Lab Interpretation (test Abnormal code = 52728-8) [facility]inaL[facility] acid, [id number] 23:13:03 Test Item Value Reference Range Interpretation Comments Lactate, Venous (test 2.88 mmol/L 0.50-2.20 H code = 2872) REJI (test code = REJI) Propulsion Machinery Service Engineer ID - DBSpecimen slightly icteric Lab Interpretation (test Abnormal code = 07510-3) [facility]ina[facility]CT[facility]ID, [id number] 23:13:03 Test Item Value Reference Range Interpretation Comments LACTATE BLOOD VENOUS (2) (BEAKER) 2.88 mmol/L 0.50-2.20 H (test code = 2872) Propulsion Machinery Service Engineer ID - DBSpecimen pilar [facility] [id number] 22:47:30 Test Item Value Reference Range Interpretation Comments POC-Glucose Meter (test 106 mg/dL 70-110 : TE STED AT [facility] code = 1538) [address] [place] [address], 770 30: Propulsion Machinery Service Engineer/Techni sowmya ID = [id number] for ULLATTIL, TAYA K Lab Interpretation (test Normal code = 08549-7) [facility]-Glucose [id number] 22:47:30 Test Item Value Reference Range Interpretation Comments POC-Glucose Meter (test 106 mg/dL 70-110 : TE STED AT [facility] code = 1538) [address] [place] [address], 770 30: Propulsion Machinery Service Engineer/Techni sowmya ID = [id number] for ULLATTIL, TAYA K Lab Interpretation (test Normal code = 16740-7) [facility]-Glucose [id number] 22:47:30 Test Item Value Reference Range Interpretation Comments POC-Glucose Meter (test 106 mg/dL 70-110 : TE STED AT [facility] code = 1538) [address] [place] [address], 770 30: Propulsion Machinery Service Engineer/Techni sowmya ID = [id number] for ULLATTIL, TAYA K Lab Interpretation (test Normal code = 01191-9) [facility]-Glucose [id number] 22:47:30 Test Item Value Reference Range Interpretation Comments POC-Glucose Meter (test 106 mg/dL 70-110 : TE STED AT [facility] code = 1538) [address] [place] [address], 770 30: Propulsion Machinery Service Engineer/Techni sowmya ID = [id number] for ULLATTIL, TAYA K Lab Interpretation (test Normal code = 53832-4) [facility]-GLUCOSE [id number] 22:47:30 Test Item Value Reference Range Interpretation Comments POC-GLUCOSE METER 106 mg/dL 70-110 : TESTED A T [facility] 6720 (BEAKER) (test code = [facility], 1538) [address]: Propulsion Machinery Service Engineer/Techni sowmya ID = [id number] for WALE FITZPATRICK C1Q class 1 & 2 uxfpnywd3566-29-85 17:38:21 Test Item Value Reference Range Interpretation Comments Interpretation (test code ADDITIONAL ANTIBODY = 5754171) INFORMATION:DQ7 = DQB1*03:01; DQA1*05:03DQ7 = DQB1*03:19; DQA1*05:05DQ7 = DQB1*03:01; DQA1*06:01DQ9 = DQB1*03:03; DQA1*02:01DQ9 = DQB1*03:03; DQA1*03:02DQ8 = DQB1*03:02; DQA1*03:01DQ8 = DQB1*03:02; DQA1*03:02 Case number (test code = [id number]) C1Q class 1 & 2 antibody See link below for (test code = 7929096) PDF Lab Report [facility], [facility], lung volumes, [facility]/[id number] 19:27:26 Test Item Value Reference Range Interpretation [...] Predicted (test code = 67.9 % 5368) [facility] [id number] 13:53:30 Test Item Value Reference Range Interpretation Comments POC glucose (test code = 124 mg/dL 65-99 H Ope rator Name: 16838-1) Clint Bustamante RDevice ID: [id number] able : [facility] Notified roofing foreman Interpretation (test Abnormal code = 45556-0) [facility] antigen [id number] 11:33:46 Test Item Value Reference Range Interpretation Comments SAB interpretation (test Additional Antibody code = 5950) Information:DQ2=DQB1 *02:01/DQA1*04:01, DQB1*02:01/DQA1*05:0 8SP8=KHF9*04:02/DQA1 *04:23EP5=YGW5*03:01 /DPA1*01:03, DPB1*03:01/DPA1*02:0 7OT5=YDF9*04:02/DPA1 *01:27GB00=RRR1*28:0 1/DPA1*01:03 SAB serum ID (test code = [id number] 5866) [facility] serum collection D&T 08/23/2021 05:49 AM (test code = 5867) SAB class I antibody A11,A74,A32,A3,A31,A assignment (test code = 30,A36,A1,A29,A66,A8 5870) 0,A26,A25,A43,A34,A3 3,B82 SAB cPRA class I (test code = 5868) SAB class II antibody DR18,DR17,DR13,DR14, assignment (test code = DR52,DR11,DR8,DQ7,DR 5871) 12,DQ9,DR9,DR7,DQ8,D Q2,DR4,DQ4,DP2,DP14, DP4,DP9,DP10,DP18,DP 20,DP17,DP3,DP28 SAB cPRA class II (test code = 5869) Case number (test code = [id number]) Single antigen beads See link below for (test code = 4604) PDF Lab Report [facility] HospitalProtein, urine, [id number] 20:20:55 Test Item Value Reference Range Interpretation Comments Collection start date, urine (test 08/23/21 code = 41780-7) Collection start time, urine (test 8:40 code = 55301-6) Collection stop date, urine (test 08/24/21 code = 45005-4) Collection stop time, urine (test 8:40 code = 55223-7) Hours of collection (test code = 07665-8) Total volume, urine (test code = 800 mL 02167-2) Urine protein concentration (test 7 mg/dL code = 37143-7) Urine protein excretion (test code = mg/vol 2448) [facility], urine, [id number] 20:20:52 Test Item Value Reference Range Interpretation Comments Collection start date, urine (test 08/23/21 code = 98154-0) Collection start time, urine (test 8:40 code = 98696-2) Collection stop date, urine (test 08/24/21 code = 98015-8) Collection stop time, urine (test 8:40 code = 45455-1) Hours of collection (test code = 74891-4) Total volume, urine (test code = 800 mL 47103-2) Urine creatinine concentration 114 mg/dL (test code = 13155-6) Urine creatinine excretion (test mg/vol code = 01157-3) [facility] FxssztyqECYA-XeC-2 (COVID-19) RNA [Presence] in Respiratory specimen by GUSTAVO with probe zulktnbta5477-83-46 20:48:05 Test Item Value Reference Range Interpretation Comments SARS-CoV-2 (COVID-19) RNA Not detected Not-Detected [Presence] in Respiratory specimen by GUSTAVO with probe detection (test code = 57663-5) 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 (test code = 93285-6) Whether the patient has symptoms related to condition of interest (test code = 79167-9) Patient was hospitalized because of this condition (test code = 04520-1) Whether the patient was admitted to intensive care unit (ICU) for condition of interest (test code = 65847-5) Whether patient resides in a congregate care setting (test code = 79524-4) [facility] 12 [id number] 15:33:38 Test Item Value Reference Range Interpretation Comments Ventricular rate (test code = 253) Atrial rate (test code = 255) [place] interval (test code = 266) QRSD interval [...] age undetermined-Abnormal ECG- [facility] transplant wvbcskphzp5395-16-62 14:27:40 Test Item Value Reference Range Interpretation Comments HLA transplant evaluation See link below for (test code = 33315-3) PDF Lab Report Case number (test code = [id number]) [facility] ED Preliminary Interpretation - Not an Wovqf1898-15-02 02:54:33 Test Item Value Reference Range Interpretation Comments REJI (test code = REJI) Orlando Balderrama MD 08/17/2021 10:33 [facility] [place] Preliminary Interpretation - Not an OrderPerformed by: Orlando Balderrama MDAuthorized by: Orlando Balderrama MD ECG reviewed by ED Physician in the absence of a safety and occupational health manager: yes Interpretation: Interpretation: abnormal Rate: ECG rate: 80 ECG rate assessment: normal Rhythm: Rhythm: sinus rhythm QRS: QRS axis: Normal QRS intervals: NormalST segments: ST segments: NormalOther findings: Other findings: prolonged qTc interval Lab Interpretation Abnormal (test code = 02398-9) [facility] [Presence] in Respiratory specimen by GUSTAVO with probe jmpbzglkc9684-81-19 23:59:30 Test Item Value Reference Range Interpretation Comments SARS-CoV-2 (COVID-19) RNA Not detected Not-Detected [Presence] in Respiratory specimen by GUSTAVO with probe detection (test code = 75056-2) 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 (test code = 85151-1) Whether the patient has symptoms related to condition of interest (test code = 84187-3) Patient was hospitalized because of this condition (test code = 27626-5) Whether the patient was admitted to intensive care unit (ICU) for condition of interest (test code = 46276-8) Whether patient resides in a congregate care setting (test code = 19261-4) status (test code = 71232-0) PHI MICHAELSARS-CoV-2 (COVID-19) RNA [Presence] in Respiratory specimen by GUSTAVO with probe [id number] 14:46:31 Test Item Value Reference Range Interpretation Comments SARS-CoV-2 (COVID-19) RNA Not detected Not-Detected [Presence] in Respiratory specimen by GUSTAVO with probe detection (test code = 52478-6) 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 (test code = 93745-2) Whether the patient has symptoms related to condition of interest (test code = 06704-8) Patient was hospitalized because of this condition (test code = 81383-7) Whether the patient was admitted to intensive care unit (ICU) for condition of interest (test code = 43977-4) Whether patient resides in a congregate care setting (test code = 87755-2) status (test code = 47856-9) PHI MICHAELSARS-CoV-2 (COVID-19) RNA [Presence] in Respiratory specimen by GUSTAVO with probe ujlbcnsds8066-16-42 19:52:10 Test Item Value Reference Range Interpretation Comments SARS-CoV-2 (COVID-19) RNA Not detected Not-Detected [Presence] in Respiratory specimen by GUSTAVO with probe detection (test code = 93281-3) 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 (test code = 57628-8) Whether the patient has symptoms related to condition of interest (test code = 12286-3) Patient was hospitalized because of this condition (test code = 44980-8) Whether the patient was admitted to intensive care unit (ICU) for condition of interest (test code = 11686-8) Whether patient resides in a congregate care setting (test code = 63524-2) status (test code = 86858-4) PHI MCIHAELSARS-CoV-2 (COVID-19) RNA [Presence] in Respiratory specimen by GUSTAVO with probe lmojibizo2030-99-32 19:31:11 Test Item Value Reference Range Interpretation Comments SARS-CoV-2 (COVID-19) RNA Not detected Not-Detected [Presence] in Respiratory specimen by GUSTAVO with probe detection (test code = 96910-8) 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 (test code = 41318-6) Whether the patient has symptoms related to condition of interest (test code = 77540-0) Patient was hospitalized because of this condition (test code = 31179-4) Whether the patient was admitted to intensive care unit (ICU) for condition of interest (test code = 62145-7) Whether patient resides in a congregate care setting (test code = 58750-3) status (test code = 87472-3) YIP JORY MICHAELSARS-CoV-2 (COVID-19) RNA [Presence] in Respiratory specimen by GUSTAVO with probe runjgmklp5140-10-65 02:26:38 Test Item Value Reference Range Interpretation Comments SARS-CoV-2 (COVID-19) RNA Not detected Not-Detected [Presence] in Respiratory specimen by GUSTAVO with probe detection (test code = 68893-6) YIP JORY MICHAELSARS-CoV-2 (COVID-19) RNA [Presence] in Respiratory specimen by GUSTAVO with probe yfpeffwtp5345-77-62 21:10:32 Test Item Value Reference Range Interpretation Comments SARS-CoV-2 (COVID-19) RNA Not detected Not-Detected [Presence] in Respiratory specimen by GUSTAVO with probe detection (test code = 97852-2) YIP MU-ISM ETCTFSJL-GhM-0 (COVID-19) RNA [Presence] in Respiratory specimen by GUSTAVO with probe yubvuysgg2080-04-79 19:03:37 Test Item Value Reference Range Interpretation Comments SARS-CoV-2 (COVID-19) RNA Not detected Not-Detected [Presence] in Respiratory specimen by GUSTAVO with probe detection (test code = 75361-7) YIP MU-ISM LJVUUUFX-PsI-7 (COVID-19) RNA [Presence] in Respiratory specimen by GUSTAVO with probe yxulqbnze2723-60-14 05:36:17 Test Item Value Reference Range Interpretation Comments SARS-CoV-2 (COVID-19) RNA Not detected Not-Detected [Presence] in Respiratory specimen by GUSTAVO with probe detection (test code = 92047-9) PHI CORLEY YAIOCPAJ-KrL-9 (COVID-19) IgG+IgM Ab [Presence] in Serum or Plasma by Ywdhgpleojl2093-22-67 09:52:00 Test Item Value Reference Range Interpretation Comments SARS-CoV-2 (COVID-19) IgG+IgM Ab Not detected [Presence] in Serum or Plasma by Immunoassay (test code = 99228-1) PHI MICHAELSARS-CoV-2 (COVID-19) RNA [Presence] in Respiratory specimen by GUSTAVO with probe bniojuobc6036-68-65 04:46:40 Test Item Value Reference Range Interpretation Comments SARS-CoV-2 (COVID-19) RNA [Presence] Detected Not-Detected in Respiratory specimen by GUSTAVO with probe detection (test code = 85642-6) PHI MICHAELSARS-CoV-2 (COVID-19) RNA [Presence] in Respiratory specimen by GUSTAVO with probe blhwovfpj6447-95-72 00:55:48 Test Item Value Reference Range Interpretation Comments SARS-CoV-2 (COVID-19) RNA Not detected Not-Detected [Presence] in Respiratory specimen by GUSTAVO with probe detection (test code = 41612-9) PHI CORLEY MJBXYMHL-HbP-5 (COVID-19) RNA [Presence] in Respiratory specimen by GUSTAVO with probe zzkrxrxrs2059-17-82 08:17:26 Test Item Value Reference Range Interpretation Comments SARS-CoV-2 (COVID-19) RNA Not detected Not-Detected [Presence] in Respiratory specimen by GUSTAVO with probe detection (test code = 01287-3) PHI CORLEY JJOUITZR-JtV-8 (COVID-19) RNA [Presence] in Respiratory specimen by GUSTAVO with probe dxozyytfl3992-87-53 00:04:18 Test Item Value Reference Range Interpretation Comments SARS-CoV-2 (COVID-19) RNA Not detected Not-Detected [Presence] in Respiratory specimen by GUSTAVO with probe detection (test code = 78857-9) PHI CORLEY HQLCXXMY-IxW-6 (COVID-19) RNA [Presence] in Respiratory specimen by GUSTAVO with probe vvlerzwor7026-03-79 04:41:17 Test Item Value Reference Range Interpretation Comments SARS-CoV-2 (COVID-19) RNA Not detected Not-Detected [Presence] in Respiratory specimen by GUSTAVO with probe detection (test code = 97566-9) PHI DEANRS-CoV-2 (COVID-19) RNA [Presence] in Respiratory specimen by GUSTAVO with probe adrpsdvae0198-19-11 04:13:39 Test Item Value Reference Range Interpretation Comments SARS-CoV-2 (COVID-19) RNA Not detected Not-Detected [Presence] in Respiratory specimen by GUSTAVO with probe detection (test code = 07592-5) PHI MICHAEL
[2023-06-23 02:20] LABS: Hematocrit 33.5 % (36.0-45.0); MCV 92.9 fL (80-100); Platelets 111 thou/uL (152-406); RBC Red Blood Cell Count 3.61 M/uL (3.86-4.86)
[2023-06-23 02:25] LABS: Specific Gravity 1.008 (1.005-1.030); Urine Bacteria <20 /HPF (<20); Urine Bilirubin NEGATIVE (Negative); Urine Blood Trace (Negative); Urine Clarity Turbid (Clear); Urine Color Colorless (Yellow); Urine Crystals Unidentified Few /HPF (None Seen); Urine Glucose NEGATIVE (Negative); Urine Protein 1+ (Negative); Urine RBC <5 /HPF (None Seen); Urine Urobilinogen Normal (Normal); Urine pH 6.5 (5.0-7.0)
[2023-06-23 02:36] LABS: Bilirubin Total 0.5 mg/dL (0.2-1.0); Potassium 5.5 mEq/L (3.5-5.1)
[2023-06-23] MEDS ORDERED: ONDANSETRON 4 MG (ODT) TAB ONE (03:03)
[2023-06-23] MEDS ORDERED: INSULIN REGULAR (HUMAN) 100 UNIT/ML ONE (03:03)
[2023-06-23] MEDS ORDERED: SOD POLYSTYREN SUL 15 GM/60 ML UCUP ONE (03:04)
[2023-06-23] MEDS ORDERED: NA CHLORIDE 0.9% 250 ML ONE (03:04)
[2023-06-23] MEDS ORDERED: CALCIUM GLUCONATE 1 GM IVPB 1 GM/50 ML BAG IV ONE (03:04)
[2023-06-23] MEDS ORDERED: D10W 250 ML IV ONE (03:05)
[2023-06-23] MEDS ORDERED: MORPHINE 4 MG/ML SYR ONE ×2 (04:45→08:49)
--- NOTE | 2023-06-23 05:49 | EDPHYS ---
Physician Documentation [facility] Name: Bella Barron Age: 63 yrs Sex: Female : 1960 Arrival Date: 06/23/2023 Time: 00:59 Bed 19 Private MD: ED Physician Azam Farrell HPI: 06/23 02:48 This 63 yrs old Female presents to ER via Ambulatory with complaints of Abdominal Pain. snw 02:48 The patient presents with abdominal pain in the lower abdomen. Onset: The snw symptoms/episode began/occurred suddenly, 2 hour(s) ago, 2 hours prior to arrival. The symptoms do not radiate. Associated signs and symptoms: Pertinent positives: diarrhea, nausea, Pertinent negatives: blood in stools, vomiting blood. The symptoms are described as crampy. Severity of pain: At its worst the pain was severe a 9 / 10. The patient has experienced similar episodes in the past. It is unknown whether or not the patient has recently seen a physician. Historical: - Allergies: 01:38 ceftriaxone; pf1 01:38 Ciprofloxacin; pf1 01:38 EGG/POULTRY; pf1 01:38 Iodine; pf1 01:38 LACTASE; pf1 01:38 Promethazine; pf1 - PMHx: 01:38 cirrhosis of liver; Crohn's Disease; hypotension; kidney disease; Liver transplant (Jul); trach removed Jun 2022; - PSHx: 01:38 bowel resection; Cholecystectomy; Colectomy; pf1 01:39 liver transplant; pf1 - Immunization history:: Adult Immunizations up to date, Client reports receiving the 2nd dose of the Covid vaccine, Last tetanus immunization: < 10 years ago Flu vaccine is up to date. - Social history:: Smoking status: Patient reports the use of cigarette tobacco products, smokes one pack cigarettes per day. Patient/guardian denies using alcohol, street drugs. ROS: 02:48 Constitutional: Negative for fever, chills, and weight loss, Eyes: Negative for injury, snw pain, redness, and discharge, ENT: Negative for injury, pain, and discharge, Neck: Negative for injury, pain, and swelling, Cardiovascular: Negative for chest pain, palpitations, and edema, Respiratory: Negative for shortness of breath, cough, wheezing, and pleuritic chest pain, Back: Negative for injury and pain, : Negative for injury, bleeding, discharge, and swelling, MS/Extremity: Negative for injury and deformity, Skin: Negative for injury, rash, and discoloration, Neuro: Negative for headache, weakness, numbness, tingling, and seizure, Psych: Negative for depression, anxiety, suicide ideation, homicidal ideation, and hallucinations, 02:48 Abdomen/GI: Positive for abdominal pain, nausea, of the suprapubic area, right lower quadrant and left lower quadrant, Exam: 02:47 Constitutional: This is a well developed, well nourished patient who is awake, alert, snw and in no acute distress. Head/Face: Normocephalic, atraumatic. Eyes: Pupils equal round and reactive to light, extra-ocular motions intact. Lids and lashes normal. Conjunctiva and sclera are non-icteric and not injected. Cornea within normal limits. Periorbital areas with no swelling, redness, or edema. ENT: Nares patent. No nasal discharge, no septal abnormalities noted. Tympanic membranes are normal and external auditory canals are clear. Oropharynx with no redness, swelling, or masses, exudates, or evidence of obstruction, uvula midline. Mucous membranes moist. Neck: Trachea midline, no thyromegaly or masses palpated, and no cervical lymphadenopathy. Supple, full range of motion without nuchal rigidity, or vertebral point tenderness. No Meningismus. Chest/axilla: Normal chest wall appearance and motion. Nontender with no deformity. No lesions are appreciated. Cardiovascular: Regular rate and rhythm with a normal S1 and S2. No gallops, murmurs, or rubs. Normal PMI, no JVD. No pulse deficits. Respiratory: Lungs have equal breath sounds bilaterally, clear to auscultation and percussion. No rales, rhonchi or wheezes noted. No increased work of breathing, no retractions or nasal flaring. Back: No spinal tenderness. No costovertebral tenderness. Full range of motion. Skin: Warm, dry with normal turgor. Normal color with no rashes, no lesions, and no evidence of cellulitis. MS/ Extremity: Pulses equal, no cyanosis. Neurovascular intact. Full, normal range of motion. 02:47 Neuro: Awake and alert, GCS 15, oriented to person, place, time, and situation. Cranial nerves II-XII grossly intact. Motor strength 5/5 in all extremities. Sensory grossly intact. Cerebellar exam normal. Normal gait. Psych: Awake, alert, with orientation to person, place and time. Behavior, mood, and affect are within normal limits. 02:47 Abdomen/GI: Inspection: obese scar(s), Bowel sounds: active, Palpation: mild abdominal tenderness, in the suprapubic area, right lower quadrant and left lower quadrant, Vital Signs: 01:09 BP 178 / 94; Pulse 74; Resp 16; Temp 98.1; Pulse Ox 100% on R/A; Weight 68.04 kg; pf1 Height 4 ft. 11 in. ; Pain 9/10; 03:30 BP 131 / 104; Pulse 73; Resp 26; Pulse Ox 100% ; bp 05:23 BP 136 / 97; Pulse 71; Resp 23; Pulse Ox 100% ; bp 08:10 BP 144 / 70; Pulse 78; Pulse Ox 100% ; tm6 08:12 Temp 97.7(O); tm6 08:13 Pain 8/10; tm6 01:09 Body Mass Index 30.30 (68.04 kg, 149.86 cm) pf1 01:09 Pain Scale: Adult pf1 08:13 Pain Scale: Adult tm6 MDM: 01:18 Patient medically screened. snw 02:49 Differential diagnosis: bowel obstruction, crohn's flare, UTI. Data reviewed: vital snw signs, nurses notes. 02:50 Transition of care: After a detail discussion of the patient's case, care is snw transferred to [facility] . 03:00 Transition of care: Care assumed from Ela BOWDEN. ms3 03:11 ED course: pt returned to ED [address] via stretcher. snw 05:47 ED course: Spoke with Rei, patient's liver project coordinator rn at [facility] that ms3 will speak with Dr Beck about transfer and will call back.. 07:59 Consideration of Admission/Observation Patient to be transferred to [facility]. ms3 Management of patient was discussed with the following: wedding coordinator- Selma. I considered the following discharge prescriptions or medication management in the emergency department Medications were administered in the Emergency Department. See MAR. Care significantly affected by the following Social Determinants of Health: Poor access to healthcare and/or lack of insurance. Counseling: I had a detailed discussion with the patient and/or guardian regarding the historical points, exam findings, and any diagnostic results supporting the discharge/admit diagnosis, lab results, the need to transfer to another facility, [facility] does not immediately have the required specialist. 06/23 01:13 Order name: CBC with Diff; Complete Time: 02:31 snw 06/23 03:13 Interpretation: H/H 12/33.5 PLT 111 acceptable. w 06/23 01:13 Order name: CMP; Complete Time: 02:36 snw 06/23 03:15 Interpretation: Abnormal: hyperkalemia at 5.5 Creatinine improved from previous at 1.16 snw LFTs elevated AST 198 ALT 80 ALK 156 . 06/23 01:13 Order name: Lipase; Complete Time: 02:36 snw 06/23 03:14 Interpretation: Within normal limits. [facility] 06/23 01:13 Order name: Urinalysis w/ reflexes; Complete Time: 02:31 snw 06/23 06:29 Order name: SARS-COV-2 RT PCR; Complete Time: 07:32 eb 06/23 02:41 Order name: CT Abd/Pelvis - Without Contrast w 06/23 01:13 Order name: IV Saline Lock; Complete Time: 01:57 snw 06/23 01:13 Order name: Labs collected and sent; Complete Time: 01:57 snw Administered Medications: 02:32 Not Given (Other Intervention Used): [id number] mg PO once snw 02:45 Drug: NS 0.9% IV 250 ml IV at bolus once Route: IV; Rate: bolus; Site: right bp antecubital; 02:45 Drug: Calcium Gluconate IVPB 1 grams IVPB once over 60 mins; (mix in NS 100 mL) Route: bp IVPB; Infused Over: 60 mins; Site: right antecubital; 02:45 Drug: D10 in Water IVP 2 ml/kg IVP once Route: IVP; Site: right antecubital; bp 04:34 Follow up: Response: No adverse reaction bp 02:45 Drug: Insulin Regular Human IVP 5 units IVP once {Co-Signature: pf1 (Cristy Ferguson RN).} Route: IVP; Site: right antecubital; 04:34 Follow up: Response: No adverse reaction bp 02:59 Drug: Ondansetron PO 4 mg PO once Route: PO; bp 04:34 Follow up: Response: No adverse reaction bp 04:34 Not Given (Patient Refused): [id number] grams PO once bp 04:34 Drug: morphine IVP or IV 4 mg IVP once over 4 mins Route: IVP; Infused Over: 4 mins; bp Site: right antecubital; 08:46 Drug: morphine IVP or IV 4 mg IVP once over 4 mins Route: IVP; Infused Over: 4 mins; tm6 Site: right antecubital; 08:46 Drug: Ondansetron IVP 4 mg IVP once; over 2 minutes Route: IVP; Site: right antecubital;tm6 Disposition: 05:47 Co-signature as Attending Physician, Azam Farrell DO. ms3 Disposition Summary: 06/23/23 05:48 Transfer Ordered Notes: Transfer Location: [facility] ms3 Reason: Higher level of care ms3 Condition: Stable ms3 Problem: new ms3 Symptoms: are unchanged ms3 Accepting Physician: Dr Beck(06/23/23 08:49) tm6 Diagnosis - Nonspecific elevation of levels of transaminase and lactic acid dehydrogenase [LDH] ms3 - Lower abdominal pain, unspecified ms3 Forms: - Medication Reconciliation Form ms3 - SBAR form ms3 Signatures: Dispatcher [employer] EDMS Ela Tejada, LUIS FERNANDO-C REAL ESTATE OFFICE SUPERVISOR-Csnw Mikhail Lopez RN RN bp Sims, Marcus, DO DO ms3 Cristy Ferguson RN RN pf1 Shahida Melgoza RN RN tm6 Cristy Ferguson RN pf1 Corrections: (The following items were deleted from the chart) 01:40 01:38 PSHx: liver transplant (Colectomy); pf1 pf1 03:15 03:13 Abnormal: hyperkalemia at 5.5 Creatinine improved from previous at 1.16 . snw snw 03:15 03:14 Abnormal: hyperkalemia at 5.5 Creatinine improved from previous at 1.16 LFTs snw elevated AST 198 ALT 80 ALK 156. snw 08:49 05:48 Dr Beck ms3 tm6
--- NOTE | 2023-06-23 05:49 | ER ---
Nurse's Notes [facility] Name: Bella Barron Age: 63 yrs Sex: Female : 1960 Arrival Date: 06/23/2023 Time: 00:59 Bed 19 Private MD: Diagnosis: Nonspecific elevation of levels of transaminase and lactic acid dehydrogenase [LDH];Lower abdominal pain, unspecified Presentation: 06/23 01:09 Chief complaint: Patient states: lower abdominal pain of 9 with nausea,onset 2 hours pf1 ago. 01:09 Coronavirus screen: Vaccine status: Patient reports receiving the 2nd dose of the covid pf1 vaccine. Client denies travel out of the [place] in the last 14 days. At this time, the client does not indicate any symptoms associated with coronavirus-19. Ebola Screen: Patient negative for fever greater than or equal to 101.5 degrees Fahrenheit, and additional compatible Ebola Virus Disease symptoms. Initial Sepsis Screen: Does the patient meet any 2 criteria? No. Patient's initial sepsis screen is negative. Does the patient have a suspected source of infection? No. Patient's initial sepsis screen is negative. Risk Assessment: Do you want to hurt yourself or someone else? Patient reports no desire to harm self or others. 01:09 Method Of Arrival: Ambulatory pf1 01:09 Acuity: OLEG 3 pf1 08:48 Onset of symptoms is unknown. tm6 Triage Assessment: 08:47 General: Appears uncomfortable, Behavior is calm, cooperative. tm6 Historical: - Allergies: 01:38 ceftriaxone; pf1 01:38 Ciprofloxacin; pf1 01:38 EGG/POULTRY; pf1 01:38 Iodine; pf1 01:38 LACTASE; pf1 01:38 Promethazine; pf1 - PMHx: 01:38 cirrhosis of liver; Crohn's Disease; hypotension; kidney disease; Liver transplant (Jul); trach removed Jun 2022; - PSHx: 01:38 bowel resection; Cholecystectomy; Colectomy; pf1 01:39 liver transplant; pf1 - Immunization history:: Adult Immunizations up to date, Client reports receiving the 2nd dose of the Covid vaccine, Last tetanus immunization: < 10 years ago Flu vaccine is up to date. - Social history:: Smoking status: Patient reports the use of cigarette tobacco products, smokes one pack cigarettes per day. Patient/guardian denies using alcohol, street drugs. Screenin:57 [facility] ED Fall Risk Assessment (Adult) History of falling in the last 3 months, bp including since admission No falls in past 3 months (0 pts). Abuse screen: Denies threats or abuse. Denies injuries from another. Nutritional screening: No deficits noted. Tuberculosis screening: No symptoms or risk factors identified. Assessment: 01:45 General: SEE TRIAGE NOTE. bp 03:30 Reassessment: Patient appears in no apparent distress at this time. Patient is alert, bp oriented x 3, equal unlabored respirations, skin warm/dry/pink. 05:24 Reassessment: Patient appears in no apparent distress at this time. Patient is alert, bp oriented x 3, equal unlabored respirations, skin warm/dry/pink. Pain: Denies pain. GI: Bowel sounds present X 4 quads. Abd is soft X 4 quads. 08:31 Reassessment: Patient appears in no apparent distress at this time. Pain: Complains of tm6 pain in abdomen Pain currently is 8 out of 10 on a pain scale. Quality of pain is described as sharp. 08:46 Reassessment: Patient appears in no apparent distress at this time. tm6 Vital Signs: 01:09 BP 178 / 94; Pulse 74; Resp 16; Temp 98.1; Pulse Ox 100% on R/A; Weight 68.04 kg; pf1 Height 4 ft. 11 in. ; Pain 9/10; 03:30 BP 131 / 104; Pulse 73; Resp 26; Pulse Ox 100% ; bp 05:23 BP 136 / 97; Pulse 71; Resp 23; Pulse Ox 100% ; bp 08:10 BP 144 / 70; Pulse 78; Pulse Ox 100% ; tm6 08:12 Temp 97.7(O); tm6 08:13 Pain 8/10; tm6 01:09 Body Mass Index 30.30 (68.04 kg, 149.86 cm) pf1 01:09 Pain Scale: Adult pf1 08:13 Pain Scale: Adult tm6 ED Course: 01:03 Patient arrived in ED. kj1 01:16 Mikhail Lopez, RN is Primary Nurse. bp 01:18 Azam Farrell DO is Attending Physician. ms3 01:18 Tejada, Ela, SUPERVISOR [employer]-C is PHCP. snw 01:38 Triage completed. pf1 01:57 Inserted saline lock: 22 gauge in right antecubital area, using aseptic technique. bp Blood collected. 01:57 Patient has correct armband on for positive identification. Bed in low position. Call bp light in reach. Side rails up X2. Adult w/ patient. 03:33 CT Abd/Pelvis - Without Contrast In Process Unspecified. EDMS 05:44 Initiated transfer with [facility] transfer center. [id number] 06:25 re initiated a transfer with Carmen from the [facility] [place] at the request eb of the patient. 06:30 administrative approval given by Beti Perez/ patient has been accepted to [facility] [address] [place] room 424 A/ Dr. Violetta Beck has accepted the patient in transfer/ report to be called through the transfer Center at [phone]. 07:35 faxed negative pcr covid to Nicolle from the [facility] transfer [place]. eb 08:47 No provider procedures requiring assistance completed. Patient transferred, IV remains tm6 in place. 08:47 Provided Education on: need for transfer. Report given to [facility] and Mary petty6 RN at [facility]. 08:48 Arm band placed on right wrist. tm6 Administered Medications: 02:32 Not Given (Other Intervention Used): [id number] mg PO once snw 02:45 Drug: NS 0.9% IV 250 ml IV at bolus once Route: IV; Rate: bolus; Site: right bp antecubital; 02:45 Drug: Calcium Gluconate IVPB 1 grams IVPB once over 60 mins; (mix in NS 100 mL) Route: bp IVPB; Infused Over: 60 mins; Site: right antecubital; 02:45 Drug: D10 in Water IVP 2 ml/kg IVP once Route: IVP; Site: right antecubital; bp 04:34 Follow up: Response: No adverse reaction bp 02:45 Drug: Insulin Regular Human IVP 5 units IVP once {Co-Signature: pf1 (Cristy Ferguson bp RN).} Route: IVP; Site: right antecubital; 04:34 Follow up: Response: No adverse reaction bp 02:59 Drug: Ondansetron PO 4 mg PO once Route: PO; bp 04:34 Follow up: Response: No adverse reaction bp 04:34 Not Given (Patient Refused): [id number] grams PO once bp 04:34 Drug: morphine IVP or IV 4 mg IVP once over 4 mins Route: IVP; Infused Over: 4 mins; bp Site: right antecubital; 08:46 Drug: morphine IVP or IV 4 mg IVP once over 4 mins Route: IVP; Infused Over: 4 mins; tm6 Site: right antecubital; 08:46 Drug: Ondansetron IVP 4 mg IVP once; over 2 minutes Route: IVP; Site: right antecubital;6 Medication: 08:48 VIS not applicable for this client. 6 Outcome: 05:48 ER care complete, transfer ordered by ms3 08:46 Transferred by ground EMS to [facility], Note: report given to [address] [facility] and Mary OLMOS at [facility] 08:46 Condition: stable 08:46 Instructed on the need for transfer, 08:49 Patient left the ED. [facility] Signatures: Dispatcher [employer] EDMS Ela Tejada, SUPERVIS[employer] SUPERVISOR [employer]-Csnw Mikhail Lopez, RN RN bp Nellie Betancur Kandis kj1 Azam Farrell, DO ms3 Cristy Ferguson, AMARILIS RN pf1 Josefa Salvador [facility] Shahida Melgoza RN RN tm6 Cristy Ferguson RN pf1 Corrections: (The following items were deleted from the chart) 01:40 01:38 PSHx: liver transplant (Colectomy); pf1 pf1 04:34 03:38 Kayexalate PO 30 grams PO bp bp
[2023-06-23] MEDS ORDERED: ONDANSETRON 4 MG/2 ML VIAL ONE (08:48)
[2023-06-23 08:55] VITALS: O2SAT 100
[2023-06-23 08:59] VITALS: BP 144/70; TEMP 97.7
--- NOTE | 2023-06-25 12:18 | RAD REPORT ---
EXAM DESCRIPTION: CT - Abdomen Pelvis Wo Contrast - 06/23/2023 8:53 am TECHNIQUE: Axial scans through the abdomen and pelvis without intravenous contrast including multipl paul computer reformations. Total Dose Length Product: 710. This exam was performed according to our departmental dose-optimization program, which includes autom ated exposure control, adjustment of the mA and/or kV according to patient size and/or use of iterati ve reconstruction technique. COMPARISON: CT scan on March 12, 2023. CT scan on September 01, 2021. CLINICAL HISTORY: LOWER ABD PAIN, NAUSEA. FINDINGS: Liver: Size: The liver is borderline enlarged measuring 18.6 cm. Parenchyma: No mass. Surgical clips are seen in the region of the upper IVC including the intrahepati c portion. Operative details are not provided. Vasculature: Portal and hepatic veins: Indeterminate, noncontrast. Spleen: The spleen is enlarged and measures 13 x 6 x 7 cm. No detectable splenic mass. Gallbladder: Gallbladder is surgically absent. Bile ducts: No biliary dilatation. Pancreas: No ductal dilatation or fluid. Adrenal glands: Normal. Kidneys: Renal length is 8.7 cm on the left and 8.8 cm on the right. There is a 6 mm cyst in the uppe r pole of the right kidney. There are bilateral small kidney stones. A 2 mm stone is seen in the post erior lateral mid pole of the right kidney on series 201 image 20 and a 2 to 3 mm stone is seen in th e posterior lateral left kidney on image 34. There is no evidence for bilateral hydronephrosis. Bladder: The urinary bladder is unremarkable. There is no wall thickening. Uterus: Position: Anteverted. The uterus measures 7.4 cm. The fundus is tilted toward the right Adnexa: No adnexal mass. Intestinal Tract: Stomach and duodenum: The stomach is thickened although underdistended. This could be an artifact of mucosal redundancy. Gastritis or gastric infiltration not excluded in this setting. Small bowel: Surgical changes are seen in the abdomen including at the distal ileum and ileocecal esther ve. There are herniorrhaphy coils in the anterior abdominal wall. There are fluid levels throughout t he small bowel. There is some aggregation of small bowel loops with indistinct interloop mesenteric f at, a finding that can be seen with adhesions. There is no small bowel dilatation however to suggest obstruction at this time but the bowel loops measure up to about 2.5 cm. If further imaging is desire d consider small bowel series. Large bowel: There is moderate generalized colonic stool burden. There is no detectable mass or wall thickening. Surgical changes are seen as discussed including in the cecum and ileocecal valve region. Appendix: The appendix is not visualized and may be surgically absent. Mesentery and Omentum: No mass or fluid collection. Retroperitoneum: No mass or adenopathy. Vasculature: Aorta: Mild calcification without aneurysm. Iliac arteries: Mild calcification. Free fluid: No gross ascites. Musculoskeletal: Musculature, abdominal wall and soft tissues: Anterior subcutaneous stranding related to an incisiona l scar. There is a 10 mm fat-containing left anterior abdominal fat-containing hernia redemonstrated on series 201 image 35. Skeletal structures: Thoracolumbar degenerative disc disease. Severe disc narrowing is notable at L2- 3 with marginal discogenic sclerosis and subcortical cystic resorption. This could be a finding from chronic inflammatory discitis. But noted to be stable and unchanged since August 2021. Lung bases: Small linear atelectasis at the right base. IMPRESSION: 1. Postoperative findings as discussed. 2. Cholecystectomy. 3. Gastric thickening. 4. Prominent small bowel loops with fluid levels and evidence for adhesions but no lupillo dilatation/o bstruction. Consider follow-up small bowel series in this regard. 5. Splenomegaly. 6. Nephrolithiasis and kidney cyst. Electronically signed by: Robby Singh MD 06/23/2023 07:50 AM JOURNEYMAN WIREMAN Due to temporary technical issues with the PACS/Fluency reporting system, reports are being signed by the in house radiologist without review as a courtesy to ensure prompt reporting. The interpreting r adiologist is fully responsible for the content of the report.
== END 2023-06-23 08:49 | disposition short-term general hospital (02) ==
LOC: ER 00:59
DX: R74.01 Elevation of levels of liver transaminase levels (principal); R74.02 Elevation of levels of lactic acid dehydrogenase [LDH]; F17.210 Nicotine dependence, cigarettes, uncomplicated; Z11.52 Encounter for screening for COVID-19; Z94.4 Liver transplant status; Z88.1 Allergy status to other antibiotic agents; Z88.8 Allergy status to other drugs, medicaments and biological substances; Z91.012 Allergy to eggs; Z91.018 Allergy to other foods; Z91.048 Other nonmedicinal substance allergy status
CPT/HCPCS: 85025; 81001; 36415; 83690; 80053; 87635; 74176; 96375; 96374; 99285; J1815; Q0162; J0612; J2405; J7050

== ENCOUNTER → 2023-10-02 | Emergency (ER) | payer OTHER ==
[~2023-10-02] MED LIST: TRAMADOL HCL 50 MG TAB ONE
--- NOTE | 2023-10-02 19:20 | EDPHYS ---
Physician Documentation [facility] Name: Bella Barron Age: 63 yrs Sex: Female : 1960 Arrival Date: 10/02/2023 Time: 19:03 Bed IW5 Private MD: ED Physician Ruddy Hollins Historical: - Allergies: 10/02 19:17 ceftriaxone; rv 19:17 Ciprofloxacin; rv 19:17 EGG/POULTRY; rv 19:17 Iodine; rv 19:17 LACTASE; rv 19:17 Promethazine; rv - PMHx: 19:17 cirrhosis of liver; Crohn's Disease; hypotension; kidney disease; Liver transplant (Jul); trach removed Jun 2022; - PSHx: 19:17 bowel resection; Cholecystectomy; Colectomy; liver transplant; rv - Immunization history:: Adult Immunizations up to date. - Social history:: Smoking status: Patient reports the use of cigarette tobacco products, smokes one pack cigarettes per day. Vital Signs: 19:15 Pulse 101; Resp 18; Temp 98; Pulse Ox 99% ; rv 19:17 BP 158 / 91; rv MDM: 19:09 Patient medically screened. kb Administered Medications: 19:24 Drug: traMADol PO 50 mg PO once Route: PO; rv 19:26 Follow up: Response: Medication administered at discharge. rv Disposition Summary: 10/02/23 19:19 Discharge Ordered Notes: Location: Home kb Condition: Stable kb Diagnosis - Neuropathy kb Followup: kb - With: Emergency Department - When: As needed - Reason: Worsening of condition Followup: kb - With: Private Physician - When: 2 - 3 days - Reason: Recheck today's complaints, Continuance of care, Re-evaluation by your physician Discharge Instructions: - Discharge Summary Sheet kb - Neuropathic Pain kb Forms: - Medication Reconciliation Form kb - Thank You Letter kb - Antibiotic Education kb - Prescription Opioid Use kb - Patient Portal Instructions kb - Leadership Thank You Letter kb Signatures: Ramandeep Mcdonough FNP-C FNP-Elliott Vásquez, RN RN rv
--- NOTE | 2023-10-02 19:20 | ER ---
Nurse's Notes [facility] Name: Bella Barron Age: 63 yrs Sex: Female : 1960 Arrival Date: 10/02/2023 Time: 19:03 Bed IW5 Private MD: Diagnosis: Neuropathy Presentation: 10/02 19:15 Chief complaint: Patient states: neuropathy pain on bilateral legs and feet. run out of rv tramadol at home. Coronavirus screen: At this time, the client does not indicate any symptoms associated with coronavirus-19. Ebola Screen: No symptoms or risks identified at this time. Initial Sepsis Screen: Does the patient meet any 2 criteria? No. Patient's initial sepsis screen is negative. Does the patient have a suspected source of infection? No. Patient's initial sepsis screen is negative. Risk Assessment: Do you want to hurt yourself or someone else? Patient reports no desire to harm self or others. Onset of symptoms was October 02, 2023. 19:15 Method Of Arrival: Ambulatory 19:15 Acuity: OLEG 5 Triage Assessment: 19:17 General: Appears comfortable, Behavior is calm, cooperative. Pain: Complains of pain in rv right foot, left foot, right leg and left leg. Neuro: Level of Consciousness is awake, alert, obeys commands, Oriented to person, place, time, situation. Cardiovascular: Capillary refill < 3 seconds Patient's skin is warm and dry. Respiratory: Airway is patent Respiratory effort is even, unlabored. Musculoskeletal: Circulation, motion, and sensation intact. Range of motion: intact in all extremities, Swelling absent. Historical: - Allergies: 19:17 ceftriaxone; rv 19:17 Ciprofloxacin; rv 19:17 EGG/POULTRY; rv 19:17 Iodine; rv 19:17 LACTASE; rv 19:17 Promethazine; rv - PMHx: 19:17 cirrhosis of liver; Crohn's Disease; hypotension; kidney disease; Liver transplant (Jul); trach removed Jun 2022; - PSHx: 19:17 bowel resection; Cholecystectomy; Colectomy; liver transplant; rv - Immunization history:: Adult Immunizations up to date. - Social history:: Smoking status: Patient reports the use of cigarette tobacco products, smokes one pack cigarettes per day. Screenin:19 [facility] ED Fall Risk Assessment (Adult) History of falling in the last 3 months, rv including since admission No falls in past 3 months (0 pts) Score/Fall Risk Level 0 - 2 = Low Risk Oriented to surroundings, Maintained a safe environment, Educated pt \T\ family on fall prevention, incl call for assistance when getting out of bed, Assessed \T\ reinforced patient's understanding of fall precautions. Abuse screen: Denies threats or abuse. Denies injuries from another. Nutritional screening: No deficits noted. Tuberculosis screening: No symptoms or risk factors identified. Vital Signs: 19:15 Pulse 101; Resp 18; Temp 98; Pulse Ox 99% ; rv 19:17 BP 158 / 91; rv ED Course: 19:07 Patient arrived in ED. ae5 19:08 Ramandeep Mcdonough FNP-C [facility] kb 19:09 Ruddy Hollins MD is Attending Physician. kb 19:17 Triage completed. rv 19:18 Arm band placed on right wrist. rv 19:19 Patient has correct armband on for positive identification. rv 19:19 Provided Education on: smoking cessation. rv 19:19 No provider procedures requiring assistance completed. rv 19:19 Patient did not have IV access during this emergency room visit. rv Administered Medications: 19:24 Drug: traMADol PO 50 mg PO once Route: PO; rv 19:26 Follow up: Response: Medication administered at discharge. rv Medication: 19:19 VIS not applicable for this client. rv Outcome: 19:19 Discharge ordered by MD. kb 19:19 Discharged to home ambulatory, with family, rv 19:19 Condition: good 19:19 Discharge instructions given to patient, Instructed on discharge instructions, follow up and referral plans. Demonstrated understanding of instructions, follow-up care, 19:26 Patient left the ED. rv Signatures: Ramandeep Mcdonough FNP-C FNP-Ckb Vicente, Ronaldo, RN RN rv Emely Zamora ae5 Corrections: (The following items were deleted from the chart) 19:26 19:19 Discharged to home ambulatory, rv rv
[2023-10-02 19:31] VITALS: TEMP 98; O2SAT 99
[2023-10-02 19:48] VITALS: BP 158/91
== END ==
LOC: ER 19:03
DX: G62.9 Polyneuropathy, unspecified (principal); M79.672 Pain in left foot; M79.671 Pain in right foot; F17.210 Nicotine dependence, cigarettes, uncomplicated; Z94.4 Liver transplant status; Z88.1 Allergy status to other antibiotic agents; Z88.8 Allergy status to other drugs, medicaments and biological substances; Z91.012 Allergy to eggs; Z91.018 Allergy to other foods; Z91.048 Other nonmedicinal substance allergy status

== ENCOUNTER 2023-11-26 21:43 | Emergency (ER) | payer OTHER ==
[2023-11-26] MEDS ORDERED: ONDANSETRON 4 MG (ODT) TAB ONE (22:18)
[2023-11-26] MEDS ORDERED: AZITHROMYCIN 250 MG TAB ONE (22:18)
[2023-11-26] MEDS ORDERED: ALBUTEROL 2.5 MG/3 ML NEB SOL ONE (22:18)
[2023-11-26] MEDS ORDERED: CODEINE 30MG/APAP 300MG TAB ONE (22:19)
[2023-11-26] MEDS ORDERED: GUAIFENESIN/DM 5 ML UCUP ONE (22:19)
--- NOTE | 2023-11-26 22:42 | RAD REPORT ---
EXAM DESCRIPTION: RADChest Single View11/26/2023 10:04 pm CLINICAL HISTORY: CONGESTION COMPARISON: Chest Single View dated 03/22/2023; Chest Single View dated 12/24/2022; Chest Single View dated 11/16/2022; Chest Single View dated 03/25/2022 TECHNIQUE: Portable AP view of the chest. FINDINGS: The lungs are clear. No pneumothorax or effusion. The cardiomediastinal contours are unre markable. IMPRESSION: No acute cardiopulmonary process.
[2023-11-26 23:06] LABS: Absolute Basophils 0.1 K/uL (0-0.5); Absolute Eosinophils 0.1 K/uL (0-0.5); Absolute Lymphocytes (CBC) 0.9 K/uL (0.7-4.9); Absolute Monocytes 0.8 K/uL (0.1-1.3); Absolute Neutrophil 4.9 K/uL (1.8-8.0); Eosinophils % 1.2 % (0-4.4); Hematocrit 34.5 % (36.0-45.0); Hemoglobin 12.1 g/dL (12.0-15.0); Lymphocytes % 13.8 % (15.3-44.8); MCH 35.6 pg (27.0-35.0); MCV 101.7 fL (80-100); MPV 9.5 fL (7.6-11.3); Monocytes % 11.6 % (3.3-12.3); Neutrophils % 72.4 % (41.7-73.7); Platelets 119 thou/uL (152-406); RBC Red Blood Cell Count 3.39 M/uL (3.86-4.86); Red Cell Distribution Width 15.5 % (12.1-15.2)
[2023-11-26 23:17] LABS: SARS-CoV-2 Antigen CONTROL BLUE LINE VIS/BG OK; SARS-CoV-2 Antigen Rapid Res Negative (Negative)
[2023-11-26 23:17] LABS: Albumin 3.2 g/dL (3.4-5.0); Albumin/Globulin Ratio 1.1 (1.1-1.8); Anion Gap 8.4 mEq/L (5.0-15.0); Bilirubin Direct 0.2 mg/dL (0-0.2); Bilirubin Indirect, Calculated 0.2 mg/dL (0.2-0.8); Bilirubin Total 0.4 mg/dL (0.2-1.0); Globulin 2.9 g/dL (2.3-3.5); Magnesium 1.6 mg/dL (1.6-2.4); Potassium 4.4 mEq/L (3.5-5.1); Protein, Total 6.1 g/dL (6.4-8.2); Troponin High Sensitivity 5.9 pg/mL (<58.9)
[2023-11-26 23:59] LABS: PT Prothrombin Time 11.8 SECONDS (9.5-12.5); Protime INR 1.07
[2023-11-27] MEDS ORDERED: IPRATROPIUM BROM 0.5MG/2.5ML ONE (00:11)
[2023-11-27] MEDS ORDERED: ALBUTEROL 2.5 MG/3 ML NEB SOL ONE (00:11)
[2023-11-27] MEDS ORDERED: GUAIFENESIN/DM 5 ML UCUP ONE (00:12)
[2023-11-27] MEDS ORDERED: METHYLPREDNISOLONE 125 MG INJ ONE (00:12)
[2023-11-27 00:34] LABS: Blood Morphology Comment NOT SEEN (NOT SEEN); Platelet Estimate ADEQ; White Blood Cell Scan OK (OK)
[2023-11-27] MEDS ORDERED: predniSONE 20 MG TAB ONE (01:46)
--- NOTE | 2023-11-27 04:25 | EDPHYS ---
Physician Documentation [facility] Name: Bella Barron Age: 63 yrs Sex: Female : 1960 Arrival Date: 11/26/2023 Time: 21:43 Bed 4 Private MD: ED Physician Jonathon Jeter HPI: 11/25 21:53 This 63 yrs old Female presents to ER via Unassigned with complaints of sp4 Breathing Difficulty. 21:53 Allergies: ceftriaxone; Ciprofloxacin; EGG/POULTRY; Iodine; LACTASE; Promethazine; sp4 PMHx: cirrhosis of liver; Crohn's Disease; hypotension; kidney disease; Liver transplant (Jul 2022); trach removed Jun 2022; PSHx: bowel resection; Cholecystectomy; Colectomy; liver transplant;. 11/26 01:14 Patient has past medical history of Crohn's disease, history of prior liver transplant, sp4 history of tracheostomy, history of chronic kidney disease. History of prior C. difficile. Patient presents with 1 week of shortness of breath nonproductive cough worsening over the course of the week. Denied bloody or purulent sputum.. Provide history reveals following list of medications, ondansetron, rifaximin, spironolactone, gabapentin, Ubrelvy, Remeron, tramadol, Abilify, diphenoxylate, fluoxetine, furosemide, ciprofloxacin, Corgard, . Historical: - Allergies: 11/25 21:57 ceftriaxone; tl4 21:57 Ciprofloxacin; tl4 21:57 EGG/POULTRY; tl4 21:57 Iodine; tl4 21:57 LACTASE; tl4 21:57 Promethazine; tl4 - PMHx: 21:57 cirrhosis of liver; Crohn's Disease; hypotension; kidney disease; Liver transplant (Jul); trach removed Jun 2022; - PSHx: 21:57 bowel resection; Cholecystectomy; Colectomy; liver transplant; tl4 - Immunization history:: Adult Immunizations unknown. - Infectious Disease History:: Denies. - Social history:: Smoking status: Patient reports the use of cigarette tobacco products, smokes one pack cigarettes per day. - Family history:: not pertinent. ROS: 11/26 01:14 Constitutional: Negative for fever, chills, and weight loss, Respiratory: For shortness sp4 of breath, positive for nonproductive cough All other systems are negative, Exam: 01:14 Constitutional: This is a well developed, well nourished patient who is awake, alert, sp4 and in no acute distress. Head/Face: Normocephalic, atraumatic. Eyes: Pupils equal round and reactive to light, extra-ocular motions intact. Lids and lashes normal. Conjunctiva and sclera are not injected. Cornea within normal limits. Periorbital areas with no swelling, redness, or edema. ENT: Nares patent. No nasal discharge, no septal abnormalities noted. Tympanic membranes are normal and external auditory canals are clear. Oropharynx with no redness, swelling, or masses, exudates, or evidence of obstruction, uvula midline. Mucous membranes moist. Neck: Trachea midline, no thyromegaly or masses palpated, and no cervical lymphadenopathy. Supple, full range of motion without nuchal rigidity, or vertebral point tenderness. Chest/axilla: Normal chest wall appearance and motion. Nontender with no deformity. No lesions are appreciated. Cardiovascular: Regular rate and rhythm with a normal S1 and S2. No gallops, murmurs, or rubs. Normal PMI, no JVD. No pulse deficits. Respiratory: Lungs have equal breath sounds bilaterally, positive for diffuse expiratory wheezing in all lung lopez. Negative for retractions Abdomen/GI: Soft, with normal bowel sounds. No distension or tympany. No guarding or rebound. No evidence of tenderness throughout. Back: No spinal tenderness. No costovertebral tenderness. Skin: Warm, dry with normal turgor. Normal color with no rashes, no lesions, and no evidence of cellulitis. MS/ Extremity: Pulses equal, no cyanosis. Neurovascular intact. Full, normal range of motion. Neuro: Awake and alert, GCS 15, oriented to person, place, time, and situation. Cranial nerves II-XII grossly intact. Motor strength 5/5 in all extremities. Sensory grossly intact. Psych: Awake, alert, with orientation to person, place and time. Behavior, mood, and affect are within normal limits 01:21 ECG was reviewed by the Attending Physician. EKG reveals sinus rhythm at rate of 97, sp4 EKG time 2305, right bundle branch block present, Vital Signs: 11/25 21:56 BP 151 / 90; Pulse 100; Resp 24; Temp 98.7(O); Pulse Ox 95% on R/A; Weight 68.04 kg; tl4 Height 4 ft. 11 in. ; 22:00 BP 150 / 78; Pulse 89; Resp 18 S; Pulse Ox 95% on R/A; jw7 23:00 BP 147 / 84; Pulse 100; Resp 19 S; Pulse Ox 98% on R/A; jw7 11/26 00:00 BP 160 / 81; Pulse 99; Resp 25 S; Pulse Ox 98% on R/A; jw7 01:00 BP 136 / 63; Pulse 84; Resp 24 S; Pulse Ox 98% on R/A; jw7 02:00 BP 138 / 66; Pulse 109; Resp 20 S; Pulse Ox 100% on R/A; jw7 11/25 21:56 Body Mass Index 30.30 (68.04 kg, 149.86 cm) tl4 [place] Coma Score: 01:14 Eye Response: spontaneous(4). Motor Response: obeys commands(6). Verbal Response: sp4 oriented(5). Total: 15. MDM: 11/25 21:52 Patient medically screened. sp4 22:56 ED course: [facility] CLINICAL HISTORY: sp4 CONGESTION COMPARISON: Chest Single View dated 03/22/2023; Chest Single View dated 12/24/2022; Chest Single View dated 11/16/2022; Chest Single View dated 03/25/2022 TECHNIQUE: Portable AP view of the chest. FINDINGS: The lungs are clear. No pneumothorax or effusion. The cardiomediastinal contours are unremarkable. IMPRESSION: No acute cardiopulmonary process.. 11/26 01:21 Differential diagnosis: Anxiety Reaction asthma, Bronchitis CHF exacerbation, Chronic sp4 Obstructive Pulmonary Disease pneumonia. Data reviewed: vital signs, nurses notes, old medical records, lab test result(s), EKG, radiologic studies, plain films. 01:45 Antibiotic administration: Zithromax p.o. given in the ER . ED course: Patient was sp4 initially scheduled for admission. We suspect COPD with superimposed bronchitis. Multiple attempts to start IV were unsuccessful. Patient has refused IV and refused central line for IV access. At this time will discharge home with as needed albuterol, p.o. prednisone, p.o. Zithromax, and cough suppressant. Advised to return in case condition gets worse. . 11/25 21:52 Order name: Basic Metabolic Panel; Complete Time: 00:00 [facility] 11/25 21:52 Order name: CBC with Diff; Complete Time: 01:11 sp4 11/25 21:52 Order name: LFT's; Complete Time: 00:00 4 11/25 21:52 Order name: Magnesium; Complete Time: 00:00 [facility] 11/25 21:52 Order name: NT PRO-BNP; Complete Time: 00:00 [facility] 11/25 21:52 Order name: PT-INR; Complete Time: 00:00 [facility] 11/25 21:52 Order name: Troponin HS; Complete Time: 00:00 [facility] 11/25 21:58 Order name: Influenza Screen (a \T\ B); Complete Time: 00:00 4 11/25 21:58 Order name: SARS RAPID; Complete Time: 00:00 [facility] 11/25 23:17 Order name: CBC Smear Scan; Complete Time: 01:11 EDMS 11/25 21:52 Order name: XRAY Chest (1 view); Complete Time: 22:56 4 11/25 21:52 Order name: EKG; Complete Time: 21:53 [facility] 11/25 21:52 Order name: Cardiac monitoring; Complete Time: 23:10 4 11/25 21:52 Order name: EKG - Nurse/Tech; Complete Time: 23:10 [facility] 11/25 21:52 Order name: Labs collected and sent; Complete Time: 22:50 [facility] 11/25 21:52 Order name: O2 Per Protocol; Complete Time: 22:12 [facility] 11/25 21:52 Order name: O2 Sat Monitoring; Complete Time: 22:12 sp4 EC:21 Rate is 97 beats/min. Rhythm is regular, Sinus Rhythm. QRS [place] is Normal. IN interval sp4 is normal. QRS interval is prolonged. QT interval is normal. No Q waves. T waves are Normal. No ST changes noted. Clinical impression: No evidence of ischemia. Interpreted by me. Reviewed by me. Administered Medications: 11/25 22:49 Drug: AZITHromycin PO 500 mg PO once Route: PO; 11/26 02:04 Follow up: Response: No adverse reaction 16 22:49 Drug: Ondansetron PO 4 mg PO once Route: PO; jw7 11/26 02:04 Follow up: Response: No adverse reaction; Marked relief of symptoms jw7 11/25 22:49 Drug: Dextromethorphan-Guaifenesin PO Liquid 10 mg-100 mg/5 mL 10 ml PO once Route: PO; jw7 11/26 02:04 Follow up: Response: No adverse reaction; No change in condition jw7 11/25 22:49 Drug: Albuterol Inhalation 2.5 mg Inhalation once Route: Inhalation; jw7 11/26 02:04 Follow up: Response: No adverse reaction; Marked relief of symptoms jw7 11/25 22:50 Not Given (Other Intervention Used): acetaminophen-codeine(300 mg-30 mg) 2 tabs PO jw7 once; RASS on ADMIN: Combtv4, Very Agttd3, Agttd2, Rstlss1, AlertClm0, Drwsy-1, Lt Sdtn-2, Mod Sdtn-3, Dp Sdtn-4, UnArsble-5 11/26 00:17 Drug: Ipratropium Inhalation Aerosol 0.5 mg Inhalation once Route: Inhalation; jw7 02:04 Follow up: Response: No adverse reaction; Marked relief of symptoms 00:17 Drug: Albuterol Inhalation 2.5 mg Inhalation once Route: Inhalation; jw7 02:04 Follow up: Response: No adverse reaction; Marked relief of symptoms 7 00:17 Drug: Dextromethorphan-Guaifenesin PO Liquid 10 mg-100 mg/5 mL 10 ml PO once Route: PO; jw7 02:03 Follow up: Response: No adverse reaction; Marked relief of symptoms; Other jw7 01:42 Not Given (Patient Refused): [id number] mg IVP once jw7 02:03 Drug: predniSONE PO 60 mg PO once Route: PO; jw7 02:03 Follow up: Response: No adverse reaction jw7 02:03 Drug: MethylPREDNISolone Sodium Succinate IM 125 mg IM once Route: IM; Site: left [facility] ventrogluteal; 02:03 Follow up: Response: No adverse reaction jw Disposition Summary: 11/27/23 01:42 Discharge Ordered Notes: Location: Home(11/27/23 01:42) sp4 Problem: new(11/27/23 01:42) sp4 Symptoms: have improved(11/27/23 01:42) sp4 Condition: Stable(11/27/23 01:42) sp4 Diagnosis - COPD/ Chronic obstructive pulmonary disease with (acute) exacerbation(11/27/23 sp4 01:42) - Acute bronchitis, unspecified sp4 Followup: sp4 - With: Private Physician - When: 5 - 6 days - Reason: Recheck today's complaints Discharge Instructions: - Discharge Summary Sheet sp4 - Acute Bronchitis, Adult sp4 Forms: - Patient Portal Instructions sp4 Prescriptions: - dextromethorphan-guaifenesin 20-400 mg Oral tablet - take 1 tablet ORAL route every 6 hours PRN cough; 40 tablet; Refills: 0, sp4 Product Selection Permitted - Albuterol Sulfate 2.5 mg /3 mL (0.083 %) Inhalation Solution for Nebulization - inhale 1 unit NEBULIZATION route every 4 hours As needed Dispense 50 vials, sp4 Use Q 4 hours PRN dyspnea, Dispense with Nebulizer and Adult mask; 50 unit; Refills: 0, Product Selection Permitted - Zithromax Z-Aneesh 250 mg Oral Tablet - take 1 tablet ORAL route as directed for 5 days Day 1 - take two (2) tablets sp4 one time. Day 2, 3, 4 , 5 take one (1) tablet once daily.; 6 tablet; Refills: 0, Product Selection Permitted - Prednisone 20 mg Oral Tablet - take 2 tablets ORAL route once daily for 5 days; 10 tablet; Refills: 0, Product sp4 Selection Permitted Signatures: Dispatcher [employer] EDIN Jodi Plunkett RN RN jw7 Jonathon Jeter MD MD sp4 Luis Alfredo Vasquez RN RN tl4 Corrections: (The following items were deleted from the chart) 01:41 01:21 Inpatient Admission sp4 sp4 01:41 01:21 Brodie Kerr sp4 sp4 :41 01:21 Telemetry/MedSurg (Inpatient) sp4 sp4 01:41 01:21 Stable sp4 sp4 01:41 01:21 new sp4 sp4 01:41 01:21 have improved sp4 sp4 :41 01:21 Standard sp4 sp4 :41 01:21 sp4 sp4 01:41 01:21 COPD/ Chronic obstructive pulmonary disease with (acute) exacerbation sp4 sp4 02:05 11/25 21:52 IV Saline Lock ordered. sp4 jw7
--- NOTE | 2023-11-27 04:25 | ER ---
Nurse's Notes [facility] Name: Bella Barron Age: 63 yrs Sex: Female : 1960 Arrival Date: 11/26/2023 Time: 21:43 Bed 4 Private MD: Diagnosis: COPD/ Chronic obstructive pulmonary disease with (acute) exacerbation;Acute bronchitis, unspecified Presentation: 11/25 21:56 Chief complaint: Patient states: Pt c/o shortness of breath, cough, and chest heaviness tl4 all day. Coronavirus screen: At this time, the client does not indicate any symptoms associated with coronavirus-19. Ebola Screen: No symptoms or risks identified at this time. Initial Sepsis Screen: Does the patient meet any 2 criteria? No. Patient's initial sepsis screen is negative. Does the patient have a suspected source of infection? No. Patient's initial sepsis screen is negative. Risk Assessment: Do you want to hurt yourself or someone else? Patient reports no desire to harm self or others. Onset of symptoms was November 26, 2023. 21:56 Method Of Arrival: Wheelchair tl4 21:56 Acuity: OLEG 3 tl4 Triage Assessment: 21:58 General: Appears distressed, Behavior is cooperative. Pain: Complains of pain in chest. tl4 EENT: No signs and/or symptoms were reported regarding the EENT system. Neuro: Level of Consciousness is awake, alert, obeys commands, Oriented to person, place, time, situation, Moves all extremities. Cardiovascular: Capillary refill < 3 seconds Patient's skin is warm and dry. Respiratory: Reports shortness of breath cough that is Onset: The symptoms/episode began/occurred gradually, the patient has moderate shortness of breath. GI: No signs and/or symptoms were reported involving the gastrointestinal system. : No signs and/or symptoms were reported regarding the genitourinary system. Derm: No signs and/or symptoms reported regarding the dermatologic system. Historical: - Allergies: 21:57 ceftriaxone; tl4 21:57 Ciprofloxacin; tl4 21:57 EGG/POULTRY; tl4 21:57 Iodine; tl4 21:57 LACTASE; tl4 21:57 Promethazine; tl4 - PMHx: 21:57 cirrhosis of liver; Crohn's Disease; hypotension; kidney disease; Liver transplant (Jul); trach removed Jun 2022; - PSHx: 21:57 bowel resection; Cholecystectomy; Colectomy; liver transplant; tl4 - Immunization history:: Adult Immunizations unknown. - Infectious Disease History:: Denies. - Social history:: Smoking status: Patient reports the use of cigarette tobacco products, smokes one pack cigarettes per day. - Family history:: not pertinent. Screenin:55 Abuse screen: Denies threats or abuse. Nutritional screening: No deficits noted. jj7 Tuberculosis screening: No symptoms or risk factors identified. 22:00 [facility] ED Fall Risk Assessment (Adult) History of falling in the last 3 months, jw7 including since admission No falls in past 3 months (0 pts) Confusion or Disorientation No (0 pts) Intoxicated or Sedated No (0 pts) Impaired Gait No (0 pts) Mobility Assist Device Used No (0 pt) Altered Elimination No (0 pt) Score/Fall Risk Level 0 - 2 = Low Risk Oriented to surroundings, Maintained a safe environment, Educated pt \T\ family on fall prevention, incl call for assistance when getting out of bed. Assessment: 21:55 General: Appears in no apparent distress. comfortable, Behavior is calm, cooperative, jj7 appropriate for age. Cardiovascular: No deficits noted. Respiratory: Reports shortness of breath at rest cough that is non-productive, Airway is patent Respiratory effort is even, unlabored, Respiratory pattern is regular, symmetrical. 23:00 Reassessment: Patient appears in no apparent distress at this time. No changes from jw7 previously documented assessment. Patient and/or family updated on plan of care and expected duration. Pain level reassessed. Patient is alert, oriented x 3, equal unlabored respirations, skin warm/dry/pink. 23:00 Cardiovascular: Rhythm is irregular. Respiratory: Breath sounds with crackles. jw7 11/26 00:00 Reassessment: Patient appears in no apparent distress at this time. No changes from jw7 previously documented assessment. Patient and/or family updated on plan of care and expected duration. Pain level reassessed. Patient is alert, oriented x 3, equal unlabored respirations, skin warm/dry/pink. 01:00 Reassessment: Patient appears in no apparent distress at this time. No changes from jw7 previously documented assessment. Patient and/or family updated on plan of care and expected duration. Pain level reassessed. Patient is alert, oriented x 3, equal unlabored respirations, skin warm/dry/pink. 01:26 General: Pt refuses IV, provider notified. vc1 01:45 Reassessment: Patient appears in no apparent distress at this time. Patient and/or jw7 family updated on plan of care and expected duration. Pain level reassessed. Patient is alert, oriented x 3, equal unlabored respirations, skin warm/dry/pink. Patient states feeling better. Patient states symptoms have improved. Vital Signs: 11/25 21:56 BP 151 / 90; Pulse 100; Resp 24; Temp 98.7(O); Pulse Ox 95% on R/A; Weight 68.04 kg; tl4 Height 4 ft. 11 in. ; 22:00 BP 150 / 78; Pulse 89; Resp 18 S; Pulse Ox 95% on R/A; jw7 23:00 BP 147 / 84; Pulse 100; Resp 19 S; Pulse Ox 98% on R/A; [facility] 11/26 00:00 BP 160 / 81; Pulse 99; Resp 25 S; Pulse Ox 98% on R/A; 7 01:00 BP 136 / 63; Pulse 84; Resp 24 S; Pulse Ox 98% on R/A; [facility] 02:00 BP 138 / 66; Pulse 109; Resp 20 S; Pulse Ox 100% on R/A; [facility] 11/25 21:56 Body Mass Index 30.30 (68.04 kg, 149.86 cm) tl4 Yojana Coma Score: 01:14 Eye Response: spontaneous(4). Motor Response: obeys commands(6). Verbal Response: sp4 oriented(5). Total: 15. ED Course: 11/25 21:47 Patient arrived in ED. ra3 21:52 Jonathon Jeter MD is Attending Physician. sp4 21:55 Patient has correct armband on for positive identification. Bed in low position. Call jj7 light in reach. Adult w/ patient. Provided Education on: USE OF CALL LOCKHART. Client placed on continuous cardiac and pulse oximetry monitoring. NIBP monitoring applied. Warm blanket given. 21:57 Triage completed. tl4 21:58 Arm band placed on right wrist. tl4 22:06 XRAY Chest (1 view) In Process Unspecified. EDMS 22:40 Missed attempt(s): 22 gauge in left antecubital area. Bleeding controlled, band aid jw7 applied, catheter tip intact. 22:50 SARS RAPID Sent. jw7 22:50 Influenza Screen (a \T\ B) Sent. 11/26 01:21 Brodie Kerr MD is Hospitalizing Provider. sp4 01:30 Pt refused to be given an IV saline lock. Informed Gaby Newby RN (Charge Nurse) wm and informed Dr. Jeter. 02:07 No provider procedures requiring assistance completed. Patient did not have IV access jw7 during this emergency room visit. Administered Medications: 11/25 22:49 Drug: AZITHromycin PO 500 mg PO once Route: PO; 7 11/26 02:04 Follow up: Response: No adverse reaction 7 11/25 22:49 Drug: Ondansetron PO 4 mg PO once Route: PO; 7 11/26 02:04 Follow up: Response: No adverse reaction; Marked relief of symptoms 7 11/25 22:49 Drug: Dextromethorphan-Guaifenesin PO Liquid 10 mg-100 mg/5 mL 10 ml PO once Route: PO; 7 11/26 02:04 Follow up: Response: No adverse reaction; No change in condition 7 11/25 22:49 Drug: Albuterol Inhalation 2.5 mg Inhalation once Route: Inhalation; 7 11/26 02:04 Follow up: Response: No adverse reaction; Marked relief of symptoms 11/25 22:50 Not Given (Other Intervention Used): acetaminophen-codeine(300 mg-30 mg) 2 tabs PO jw7 once; RASS on ADMIN: Combtv4, Very Agttd3, Agttd2, Rstlss1, AlertClm0, Drwsy-1, Lt Sdtn-2, Mod Sdtn-3, Dp Sdtn-4, UnArsble-5 11/26 00:17 Drug: Ipratropium Inhalation Aerosol 0.5 mg Inhalation once Route: Inhalation; jw7 02:04 Follow up: Response: No adverse reaction; Marked relief of symptoms jw:17 Drug: Albuterol Inhalation 2.5 mg Inhalation once Route: Inhalation; jw7 02:04 Follow up: Response: No adverse reaction; Marked relief of symptoms jw7 :17 Drug: Dextromethorphan-Guaifenesin PO Liquid 10 mg-100 mg/5 mL 10 ml PO once Route: PO; jw7 02:03 Follow up: Response: No adverse reaction; Marked relief of symptoms; Other jw7 01:42 Not Given (Patient Refused): [id number] mg IVP once jw7 02:03 Drug: predniSONE PO 60 mg PO once Route: PO; jw7 02:03 Follow up: Response: No adverse reaction jw7 02:03 Drug: MethylPREDNISolone Sodium Succinate IM 125 mg IM once Route: IM; Site: left [facility] ventrogluteal; 02:03 Follow up: Response: No adverse reaction jw7 Medication: 11/25 21:55 VIS not applicable for this client. jj7 Outcome: 11/26 01:21 Decision to Hospitalize by Provider. sp4 01:42 Discharge ordered by . sp4 02:07 Discharged to home ambulatory, jw7 02:07 Condition: stable 02:07 Discharge instructions given to patient, Instructed on discharge instructions, follow up and referral plans. medication usage, Demonstrated understanding of instructions, follow-up care, medications, Prescriptions given X 4, 02:10 Patient left the ED. jw7 Signatures: Dispatcher [employer] EDMS Liz Castillo Vanessa RN RN vc1 Jodi Plunkett RN RN jw7 Jayshree Rascon RN RN jj7 Jonathon Jeter MD MD sp4 Luis Alfredo Vasquez RN RN tl4 Chuyita Fernando ra3
[2023-11-27 11:40] VITALS: BP 138/66; TEMP 98.7; O2SAT 100
== END 2023-11-27 02:10 | disposition home or self-care (01) ==
LOC: ER 21:43
DX: J44.1 Chronic obstructive pulmonary disease with (acute) exacerbation (principal); J20.9 Acute bronchitis, unspecified; Z11.52 Encounter for screening for COVID-19; F17.210 Nicotine dependence, cigarettes, uncomplicated; I10 Essential (primary) hypertension; Z94.4 Liver transplant status; Z88.1 Allergy status to other antibiotic agents; Z88.8 Allergy status to other drugs, medicaments and biological substances; Z91.012 Allergy to eggs; Z91.018 Allergy to other foods; Z91.048 Other nonmedicinal substance allergy status
CPT/HCPCS: 85025; 80048; 36415; 83735; 85610; 80076; 84484; 83880; 87804 ×2; 71045; 87811; Q0162; J7613; 93005; J2930; J7512; J7644

== ENCOUNTER 2023-12-21 12:16 | Emergency (ER) | payer OTHER ==
--- NOTE | 2023-12-21 13:10 | RAD REPORT ---
EXAM DESCRIPTION: RAD - Chest Single View - 12/21/2023 12:57 pm CLINICAL HISTORY: TRAUMA Chest pain. COMPARISON: Chest Single View dated 11/26/2023; Chest Single View dated 03/22/2023; Chest Single View dated 12/24/2022; Chest Single View dated 11/16/2022 FINDINGS: Portable technique limits examination quality. The lungs are grossly clear. The heart is normal in size. No displaced fractures.Left axillary rachel dissection clips. IMPRESSION: No acute intrathoracic process suspected.
--- NOTE | 2023-12-21 13:11 | RAD REPORT ---
EXAM DESCRIPTION: RAD - Ribs Left - 12/21/2023 12:57 pm CLINICAL HISTORY: PAIN COMPARISON: Chest Single View dated 12/21/2023 FINDINGS: No acute fracture or dislocation is seen. Left axillary dissection clips.
[2023-12-21] MEDS ORDERED: HYDROCODONE/APAP 7.5/325 MG TAB ONE (13:13)
--- NOTE | 2023-12-21 13:25 | ER ---
Nurse's Notes [facility] Name: Bella Barron Age: 63 yrs Sex: Female : 1960 Arrival Date: 12/21/2023 Time: 12:16 Bed 18 Private MD: Diagnosis: Rib contusion;Fall on same level, unspecified Presentation: 12/20 12:38 Chief complaint: Patient states: Fell on getting off toilet. L sided rib cage ll1 pains since. Coronavirus screen: Client denies travel out of the [place] in the last 14 days. At this time, the client does not indicate any symptoms associated with coronavirus-19. Ebola Screen: Patient denies travel to an Ebola-affected area in the 21 days before illness onset. Initial Sepsis Screen: Does the patient meet any 2 criteria? No. Patient's initial sepsis screen is negative. Does the patient have a suspected source of infection? No. Patient's initial sepsis screen is negative. Risk Assessment: Do you want to hurt yourself or someone else? Patient reports no desire to harm self or others. Onset of symptoms was December 19, 2023. 12:38 Method Of Arrival: Wheelchair ll1 12:38 Acuity: OLEG 3 ll1 12:40 Care prior to arrival: None. Mechanism of Injury: No Mechanism of Injury. rs5 Triage Assessment: 12:30 General: Appears in no apparent distress. uncomfortable, Behavior is calm, cooperative. rs5 12:38 General: Appears uncomfortable, Behavior is calm, cooperative, appropriate for age. ll1 Pain: Complains of pain in L ribs Quality of pain is described as aching. Respiratory: Reports pain with respiration L sided rib cage pain since fall. Historical: - Allergies: 12:29 ceftriaxone; ll1 12:29 Ciprofloxacin; ll1 12:29 Iodine; ll1 12:29 LACTASE; ll1 12:29 Promethazine; ll1 - PMHx: 12:29 cirrhosis of liver; Crohn's Disease; hypotension; kidney disease; Liver transplant (Jul); trach removed Jun 2022; - PSHx: 12:29 bowel resection; Cholecystectomy; Colectomy; liver transplant; ll1 - Immunization history:: Adult Immunizations up to date. - Infectious Disease History:: Denies. - Immunization history: Last tetanus immunization: unknown. - Social history:: Smoking status: Patient denies any tobacco usage or history of. Screenin:30 [facility] ED Fall Risk Assessment (Adult) History of falling in the last 3 months, rs5 including since admission Yes- single mechanical fall (1 pt) Confusion or Disorientation No (0 pts) Intoxicated or Sedated No (0 pts) Impaired Gait Yes (1 pt) Mobility Assist Device Used Yes (1 pt) Altered Elimination No (0 pt) Score/Fall Risk Level 0 - 2 = Low Risk Oriented to surroundings, Maintained a safe environment. Abuse screen: Denies threats or abuse. Nutritional screening: No deficits noted. Tuberculosis screening: No symptoms or risk factors identified. Primary Survey: 12:30 NO uncontrolled hemorrhage observed. A: The client is awake and alert. The airway is rs5 patent. 12:30 Breathing/Chest: Spontaneous respiratory effort, equal unlabored respirations, breath rs5 sounds clear bilaterally, regular pattern, symmetrical chest rise and fall. Circulation: No external hemorrhage present. Regular and strong central pulse, skin warm/dry/normal color. Disability Pupils are equal, round, reactive to light and accommodation. Client is alert. Exposure/Environment: All clothing and personal items were removed. Forensic evidence collection is not deemed to be indicated at this time. Items placed in patient belonging bag. There is no evidence of uncontrolled external bleeding. Obvious injury(ies) are noted at this time: slight bruising noted to upper ribs bilat A warming method has been applied: A warm blanket has been provided to the patient. Reassessment Alertness and Airway: Awake and alert. The airway is patent. Breathing: Spontaneous respiratory effort, equal unlabored respirations, breath sounds clear bilaterally, regular pattern with symmetrical chest rise and fall. Circulation: No external hemorrhage noted. Regular and strong central pulse, skin warm/dry/normal color. Disability: Pupils. Assessment: 12:30 General: Appears in no apparent distress. uncomfortable, Behavior is calm, cooperative. rs5 Pain: Complains of pain in ribs bilat Pain currently is 7 out of 10 on a pain scale. Quality of pain is described as aching, Is continuous. Neuro: Level of Consciousness is awake, alert, obeys commands, Oriented to person, place, time, situation. Cardiovascular: Patient's skin is warm and dry. Rhythm is regular. Respiratory: Airway is patent Respiratory effort is even, unlabored, Respiratory pattern is regular, symmetrical. GI: Abdomen is round non-distended, Abd is soft and non tender X 4 quads. : No signs and/or symptoms were reported regarding the genitourinary system. EENT: No signs and/or symptoms were reported regarding the EENT system. Derm: Skin is intact, Skin is pink, warm \T\ dry. Musculoskeletal: Range of motion: intact in all extremities. 13:33 Reassessment: Patient and/or family updated on plan of care and expected duration. Pain rs5 level reassessed. Patient is alert, oriented x 3, equal unlabored respirations, skin warm/dry/pink. Patient states feeling better. Vital Signs: 12:38 BP 115 / 72; Pulse 82; Resp 17; Temp 97.7; Pulse Ox 97% ; Weight 68.04 kg; Height 4 ft. ll1 11 in. ; Pain 8/10; 13:20 BP 120 / 75; Pulse 81; Resp 18; Pulse Ox 99% on R/A; rs5 12:38 Body Mass Index 30.30 (68.04 kg, 149.86 cm) ll1 12:38 Pain Scale: Adult ll1 Yojana Coma Score: 12:39 Eye Response: spontaneous(4). Motor Response: obeys commands(6). Verbal Response: rs5 oriented(5). Total: 15. Trauma Score (Adult): 12:39 Eye Response: spontaneous(1); Verbal Response: oriented(1); Motor Response: obeys rs5 commands(2); Systolic BP: > 89 mm Hg(4); Respiratory Rate: 10 to 29 per min(4); Yojana Score: 15; Trauma Score: 12 ED Course: 12:19 Patient arrived in ED. mg5 12:28 [facility] jh7 12:28 Ruddy Hollins MD is Attending Physician. jh7 12:29 Arm band placed on. ll1 12:30 No provider procedures requiring assistance completed. rs5 12:30 Thermoregulation: warm blanket given to patient. rs5 12:35 Patient has correct armband on for positive identification. Placed in gown. Bed in low rs5 position. Call light in reach. Side rails up X2. 12:40 Triage completed. ll1 12:59 XRAY Ribs LEFT In Process Unspecified. EDMS 12:59 XRAY Chest (1 view) In Process Unspecified. EDMS 13:11 Patient placed in an exam room, on a stretcher. ll1 13:17 Mack Clinton, RN is Primary Nurse. rs5 13:40 IV discontinued, intact, bleeding controlled, No redness/swelling at site. Pressure rs5 dressing applied. Administered Medications: 13:17 Drug: Hydrocodone-Acetaminophen PO (7.5 mg-325 mg) 1 tabs PO once Route: PO; rs5 13:40 Follow up: Response: No adverse reaction rs5 Medication: 12:30 VIS not applicable for this client. rs5 Outcome: 13:24 Discharge ordered by . 7 13:40 Discharged to home ambulatory, with family, rs5 13:40 Condition: stable 13:40 Discharge instructions given to patient, family, Instructed on discharge instructions, follow up and referral plans. medication usage, Demonstrated understanding of instructions, follow-up care, medications, Prescriptions given X 1, 13:48 Patient left the ED. rs5 Signatures: Dispatcher [employer] EDMS Makenna Burgos, RN RN ll1 Alka Garza, CERTIFIED PROFESSIONAL CODER CERTIFIED PROFESSIONAL CODER Mack Tavarez, RN RN rs5 Nidia Lynn mg5 Corrections: (The following items were deleted from the chart) 12:30 12:29 Chief complaint: ll1 ll1 12:38 12:29 Allergies: EGG/POULTRY; ll1 ll1
--- NOTE | 2023-12-21 13:25 | EDPHYS ---
Physician Documentation [facility] Name: Bella Barron Age: 63 yrs Sex: Female : 1960 Arrival Date: 12/21/2023 Time: 12:16 Bed 18 Private MD: ED Physician Ruddy Hollins HPI: 12/20 12:38 This 63 yrs old Female presents to ER via Wheelchair with complaints of Fall Injury, jh7 Back Pain. 12:38 Details of fall: The patient fell from an upright position, while walking. Onset: The jh7 symptoms/episode began/occurred 2 day(s) ago. Patient reports that she slipped and fell 2 days ago and landed on her left ribs. Complains of pain worsening when taking a deep breath or coughing. Denies head injury or LOC. Denies chest pain, syncope, dizziness, or any other symptoms at this time.. Historical: - Allergies: 12:29 ceftriaxone; ll1 12:29 Ciprofloxacin; ll1 12:29 Iodine; ll1 12:29 LACTASE; ll1 12:29 Promethazine; ll1 - PMHx: 12:29 cirrhosis of liver; Crohn's Disease; hypotension; kidney disease; Liver transplant (Jul); trach removed Jun 2022; - PSHx: 12:29 bowel resection; Cholecystectomy; Colectomy; liver transplant; ll1 - Immunization history:: Adult Immunizations up to date. - Infectious Disease History:: Denies. - Immunization history: Last tetanus immunization: unknown. - Social history:: Smoking status: Patient denies any tobacco usage or history of. ROS: 12:38 Constitutional: Per HPI jh7 12:38 Back: Positive for Left rib pain, Exam: 12:38 Constitutional: This is a well developed, well nourished patient who is awake, alert, jh7 and in no acute distress. Head/Face: Normocephalic, atraumatic. Neck: Trachea midline, no thyromegaly or masses palpated, and no cervical lymphadenopathy. Supple, full range of motion without nuchal rigidity, or vertebral point tenderness. No Meningismus. Cardiovascular: Regular rate and rhythm with a normal S1 and S2. No gallops, murmurs, or rubs. Normal PMI, no JVD. No pulse deficits. Respiratory: Lungs have equal breath sounds bilaterally, clear to auscultation and percussion. No rales, rhonchi or wheezes noted. No increased work of breathing, no retractions or nasal flaring. Abdomen/GI: Soft, non-tender, with normal bowel sounds. No distension or tympany. No guarding or rebound. No evidence of tenderness throughout. Skin: Warm, dry with normal turgor. Normal color with no rashes, no lesions, and no evidence of cellulitis. MS/ Extremity: Pulses equal, no cyanosis. Neurovascular intact. Full, normal range of motion. Neuro: Awake and alert, GCS 15, oriented to person, place, time, and situation. Motor strength 5/5 in all extremities. Sensory grossly intact. Normal gait. 12:38 Chest/axilla: Inspection: normal, Palpation: tenderness, that is moderate, of the left lateral anterior chest, that totally reproduces the patient's complaints, Vital Signs: 12:38 BP 115 / 72; Pulse 82; Resp 17; Temp 97.7; Pulse Ox 97% ; Weight 68.04 kg; Height 4 ft. ll1 11 in. ; Pain 8/10; 13:20 BP 120 / 75; Pulse 81; Resp 18; Pulse Ox 99% on R/A; rs5 12:38 Body Mass Index 30.30 (68.04 kg, 149.86 cm) ll1 12:38 Pain Scale: Adult ll1 Wheat[place] Coma Score: 12:39 Eye Response: spontaneous(4). Motor Response: obeys commands(6). Verbal Response: rs5 oriented(5). Total: 15. Trauma Score (Adult): 12:39 Eye Response: spontaneous(1); Verbal Response: oriented(1); Motor Response: obeys rs5 commands(2); Systolic BP: > 89 mm Hg(4); Respiratory Rate: 10 to 29 per min(4); [place] Score: 15; Trauma Score: 12 MDM: 12:28 Patient medically screened. [facility] 13:30 Differential diagnosis: contusion, fracture, sprain. Data reviewed: vital signs, nurses [facility] notes, radiologic studies, plain films. Independent interpretation of the following test(s) in the Emergency Department X-Ray: My interpretation is no acute fractures. Care significantly affected by the following chronic conditions: Chronic Kidney Disease, Liver Disease. Counseling: I had a detailed discussion with the patient and/or guardian regarding the historical points, exam findings, and any diagnostic results supporting the discharge/admit diagnosis, to return to the emergency department if symptoms worsen or persist or if there are any questions or concerns that arise at home. Response to treatment: the patient's symptoms have markedly improved after treatment. 12/20 12:44 Order name: XRAY Ribs LEFT; Complete Time: 13:21 7 12/20 12:44 Order name: XRAY Chest (1 view); Complete Time: 13:21 7 Administered Medications: 13:17 Drug: Hydrocodone-Acetaminophen PO (7.5 mg-325 mg) 1 tabs PO once Route: PO; rs5 13:40 Follow up: Response: No adverse reaction rs5 Disposition Summary: 12/21/23 13:24 Discharge Ordered Notes: Location: [place] [address] Problem: chronic [facility] Symptoms: have improved [facility] Condition: Stable [facility] Diagnosis - Rib contusion [facility] - Fall on same level, unspecified [facility] Followup: [facility] - With: Private Physician - When: 2 - 3 days - Reason: Recheck today's complaints Discharge Instructions: - Discharge Summary Sheet [facility] - Rib Contusion [facility] - Fall Prevention in the Home, Adult [facility] Forms: - Medication Reconciliation Form [facility] - Prescription Opioid Use [facility] - Patient Portal Instructions [facility] - Leadership Thank You Letter [facility] Prescriptions: - Tramadol 50 mg Oral Tablet - take 1 tablet ORAL route every 8 hours as needed; 12 tablet; Refills: 0, jh7 Product Selection Permitted Signatures: Dispatcher [employer] EDMakenna Rosen RN RN ll1 Alka Garza FNP [employer] 7 Mack Clinton RN RN rs5 Corrections: (The following items were deleted from the chart) 12:38 12:29 Allergies: EGG/POULTRY; ll1 ll1 12:44 12:44 Chest Single View+[email or web address] ordered. EDOR EDMS
[2023-12-21 14:08] VITALS: BP 115/72; TEMP 97.7; O2SAT 97
== END 2023-12-21 13:48 | disposition home or self-care (01) ==
LOC: ER 12:16
DX: S20.212A Contusion of left front wall of thorax, initial encounter (principal); W18.30XA Fall on same level, unspecified, initial encounter; Z94.4 Liver transplant status; Z88.1 Allergy status to other antibiotic agents; Z88.8 Allergy status to other drugs, medicaments and biological substances; Z91.048 Other nonmedicinal substance allergy status
CPT/HCPCS: 71045; 99284

== ENCOUNTER 2024-01-22 18:05 | Emergency (ER) | payer OTHER ==
[2024-01-22] MEDS ORDERED: MORPHINE *EXTENDED RELEASE* 15 MG TAB PO ONE (18:34)
--- NOTE | 2024-01-22 18:50 | ER ---
Nurse's Notes [facility] Name: Bella Barron Age: 63 yrs Sex: Female : 1960 Arrival Date: 01/22/2024 Time: 18:05 Bed 19 Private MD: Diagnosis: Fracture of upper end of humerus Presentation: 01/21 18:30 Chief complaint: EMS states: patient is having continued pain from a fall that occurred ap3 a week. pain is located in the patients left arm. patient presents to the ED with a sling on that left arm. Coronavirus screen: At this time, the client does not indicate any symptoms associated with coronavirus-19. Ebola Screen: No symptoms or risks identified at this time. Initial Sepsis Screen: Does the patient meet any 2 criteria? No. Patient's initial sepsis screen is negative. Does the patient have a suspected source of infection? No. Patient's initial sepsis screen is negative. Risk Assessment: Do you want to hurt yourself or someone else? Patient reports no desire to harm self or others. Onset of symptoms was January 15, 2024. 18:30 Method Of Arrival: EMS: [facility] ap3 18:30 Acuity: OLEG 4 ap3 Triage Assessment: 18:32 General: Appears uncomfortable, Behavior is calm. Pain: Complains of pain in left arm ap3 Pain began post fall one week ago. Neuro: Level of Consciousness is awake, alert, obeys commands, Oriented to person, place, time, patient need a moment to be able to answer questions appropriately . Cardiovascular: Patient's skin is warm and dry. Respiratory: Airway is patent Respiratory effort is even, unlabored, Respiratory pattern is regular, symmetrical. Historical: - Allergies: 18:32 ceftriaxone; ap3 18:32 Ciprofloxacin; ap3 18:32 Iodine; ap3 18:32 LACTASE; ap3 18:32 Promethazine; ap3 - PMHx: 18:32 cirrhosis of liver; Crohn's Disease; hypotension; kidney disease; Liver transplant (Jul); trach removed Jun 2022; - PSHx: 18:32 bowel resection; Cholecystectomy; Colectomy; liver transplant; ap3 - Immunization history:: Adult Immunizations up to date. - Infectious Disease History:: Denies. - Social history:: Smoking status: Patient denies any tobacco usage or history of. Screenin:15 [facility] ED Fall Risk Assessment (Adult) History of falling in the last 3 months, rs5 including since admission No falls in past 3 months (0 pts) Confusion or Disorientation No (0 pts) Intoxicated or Sedated No (0 pts) Impaired Gait No (0 pts) Mobility Assist Device Used No (0 pt) Altered Elimination No (0 pt) Score/Fall Risk Level 0 - 2 = Low Risk Oriented to surroundings, Maintained a safe environment. 18:33 Abuse screen: Denies threats or abuse. Nutritional screening: No deficits noted. ap3 Tuberculosis screening: No symptoms or risk factors identified. Assessment: 18:15 General: Appears in no apparent distress. uncomfortable, Behavior is calm, cooperative. rs5 Pain: Complains of pain in left arm Pain does not radiate. Pain currently is 8 out of 10 on a pain scale. Quality of pain is described as aching, Is continuous. Neuro: Level of Consciousness is awake, alert, obeys commands, Oriented to person, place, time, situation. Cardiovascular: Patient's skin is warm and dry. Rhythm is regular. Respiratory: Airway is patent Respiratory effort is even, unlabored, Respiratory pattern is regular, symmetrical. GI: Abdomen is round non-distended, Abd is soft and non tender X 4 quads. : No signs and/or symptoms were reported regarding the genitourinary system. EENT: No signs and/or symptoms were reported regarding the EENT system. Derm: Skin is intact, Skin is pink, warm \T\ dry. Musculoskeletal: Range of motion: limited in left arm. 18:59 Reassessment: Patient and/or family updated on plan of care and expected duration. Pain rs5 level reassessed. Patient is alert, oriented x 3, equal unlabored respirations, skin warm/dry/pink. Patient denies pain at this time. Patient states feeling better. Patient states symptoms have improved. Vital Signs: 18:30 BP 155 / 98; Pulse 80; Resp 17; Pulse Ox 99% on R/A; rs5 19:00 BP 148 / 91; Pulse 77; Resp 17; Pulse Ox 99% on R/A; rs5 19:01 Temp 97.1(TE); rs5 ED Course: 18:14 Patient arrived in ED. as6 18:15 Patient has correct armband on for positive identification. Placed in gown. Bed in low rs5 position. Call light in reach. Side rails up X2. 18:20 Azam Farrell DO is Attending Physician. ms3 18:32 Triage completed. ap3 18:33 Arm band placed on right wrist. ap3 18:49 Jeremy Sierra MD is Referral Physician. ms3 18:59 No provider procedures requiring assistance completed. rs5 19:08 Provided Education on: follow up with Dr. Sierra. tm6 19:08 Patient did not have IV access during this emergency room visit. tm6 Administered Medications: 18:36 Drug: morphine PO 15 mg PO once Route: PO; as6 19:01 Follow up: Response: No adverse reaction; Pain is decreased rs5 Medication: 19:00 VIS not applicable for this client. rs5 Outcome: 18:50 Discharge ordered by . ms3 19:08 Discharged to home via wheelchair, tm6 19:08 Condition: stable 19:08 Discharge instructions given to patient, Instructed on discharge instructions, follow up and referral plans. Demonstrated understanding of instructions, follow-up care, 19:09 Patient left the ED. tm6 Signatures: Callie Gordon, RN RN ap3 Azam Farrell DO DO ms3 Toni Loza RN RN as6 Mack Clinton, RN RN rs5 Shahida Melgoza RN RN tm6
--- NOTE | 2024-01-22 18:50 | EDPHYS ---
Physician Documentation [facility] Name: Bella Barron Age: 63 yrs Sex: Female : 1960 Arrival Date: 01/22/2024 Time: 18:05 Bed 19 Private MD: ED Physician Azam Farrell HPI: 01/21 20:16 This 63 yrs old Female presents to ER via EMS with complaints of Arm Pain. ms3 20:16 63-year-old female with past medical history of cirrhosis of the liver, Crohn's ms3 disease, hypertension, kidney disease, liver transplant presents to the emergency department for left arm pain. Patient was seen in the emergency department on January 16, 2024 and diagnosed with upper humerus fracture. Patient states she does not have pain medications at her house. Historical: - Allergies: 18:32 ceftriaxone; ap3 18:32 Ciprofloxacin; ap3 18:32 Iodine; ap3 18:32 LACTASE; ap3 18:32 Promethazine; ap3 - PMHx: 18:32 cirrhosis of liver; Crohn's Disease; hypotension; kidney disease; Liver transplant (Jul); trach removed Jun 2022; - PSHx: 18:32 bowel resection; Cholecystectomy; Colectomy; liver transplant; ap3 - Immunization history:: Adult Immunizations up to date. - Infectious Disease History:: Denies. - Social history:: Smoking status: Patient denies any tobacco usage or history of. ROS: 20:16 Constitutional: Negative for fever, and chills. Cardiovascular: Negative for chest ms3 pain, and palpitations. Respiratory: Negative for shortness of breath, cough, wheezing, and pleuritic chest pain, Abdomen/GI: Negative for abdominal pain, nausea, vomiting, diarrhea, and constipation, 20:16 MS/extremity: Positive for pain, of the left arm, Exam: 20:16 Constitutional: This is a well developed, well nourished patient who is awake, alert, ms3 and in no acute distress. Chest/axilla: Normal chest wall appearance and motion. Nontender with no deformity. Cardiovascular: Regular rate and rhythm with a normal S1 and S2. No gallops, murmurs, or rubs. Normal PMI, no JVD. No pulse deficits. Respiratory: Lungs have equal breath sounds bilaterally, clear to auscultation and percussion. No rales, rhonchi or wheezes noted. No increased work of breathing, no retractions or nasal flaring. Abdomen/GI: Soft, non-tender, with normal bowel sounds. No distension or tympany. No guarding or rebound. No evidence of tenderness throughout. 20:16 Musculoskeletal/extremity: Extremities: noted in the left arm: pain, tenderness, No signs of compartment syndrome, Vital Signs: 18:30 BP 155 / 98; Pulse 80; Resp 17; Pulse Ox 99% on R/A; rs5 19:00 BP 148 / 91; Pulse 77; Resp 17; Pulse Ox 99% on R/A; rs5 19:01 Temp 97.1(TE); rs5 MDM: 18:24 Patient medically screened. ms3 20:16 Differential diagnosis: Shoulder fracture versus musculoskeletal pain. Data reviewed: ms3 vital signs, nurses notes, and as a result, I will discharge patient. I considered the following discharge prescriptions or medication management in the emergency department Medications were administered in the Emergency Department. See MAR. Historians other than the Patient: EMS: [facility]. Counseling: I had a detailed discussion with the patient and/or guardian regarding the historical points, exam findings, and any diagnostic results supporting the discharge/admit diagnosis, the need for outpatient follow up, to return to the emergency department if symptoms worsen or persist or if there are any questions or concerns that arise at home. Special discussion: I discussed with the patient/guardian in detail that at this point there is no indication for admission to the hospital. It is understood, however, that if the symptoms persist or worsen the patient needs to return immediately for re-evaluation. ED course: Discussed with patient she was prescribed 30 Tylenol with codeine No. 4 on January 16, [address] Jeter and 30 tramadol 50 mg tablets on January 21, 2020. Patient to follow-up with Dr. Sierra in 2 to 3 days. Patient understands and agrees with plan. All questions were answered. Return precautions discussed include worsening symptoms, or any other concerns. On reevaluation patient is alert, in no apparent distress, nontoxic-appearing, left hand neurovascular intact and without signs of compartment syndrome present. Administered Medications: 18:36 Drug: morphine PO 15 mg PO once Route: PO; as6 19:01 Follow up: Response: No adverse reaction; Pain is decreased rs5 Disposition Summary: 01/22/24 18:50 Discharge Ordered Notes: Location: Home ms3 Condition: Stable ms3 Diagnosis - Fracture of upper end of humerus ms3 Followup: ms3 - With: Jeremy Sierra MD - When: 2 - 3 days - Reason: Recheck today's complaints Discharge Instructions: - Discharge Summary Sheet ms3 - Humerus Fracture Treated With Immobilization, [id number] ms3 Forms: - Medication Reconciliation Form ms3 - Antibiotic Education ms3 - Prescription Opioid Use ms3 - Patient Portal Instructions ms3 - Leadership Thank You Letter ms3 Signatures: Callie Gordon RN RN ap3 Azam Farrell DO DO ms3 Toni Loza RN RN as6 Mack Clinton RN RN rs5
[2024-01-22 19:26] VITALS: BP 148/91; TEMP 97.1; O2SAT 99
== END 2024-01-22 19:09 | disposition home or self-care (01) ==
LOC: ER 18:05
DX: M79.622 Pain in left upper arm (principal); S42.202S Unspecified fracture of upper end of left humerus, sequela

== ENCOUNTER 2024-04-09 15:00 | Emergency (ER) | payer OTHER ==
[2024-04-09] MEDS ORDERED: MORPHINE 4 MG/ML SYR ONE (15:41)
--- NOTE | 2024-04-09 16:19 | ER ---
Nurse's Notes [facility] Name: Bella Barron Age: 63 yrs Sex: Female : 1960 Arrival Date: 04/09/2024 Time: 15:00 Bed 19 Private MD: Diagnosis: Post-operative pain Presentation: 04/09 15:14 Chief complaint: Patient states: broke arm and had surgery 3 weeks ago, a shoulder tm6 replacement, has been bothering her ever since. Coronavirus screen: Vaccine status: Patient reports receiving the 2nd dose of the covid vaccine. Ebola Screen: Patient negative for fever greater than or equal to 101.5 degrees Fahrenheit, and additional compatible Ebola Virus Disease symptoms Patient denies exposure to infectious person. Patient denies travel to an Ebola-affected area in the 21 days before illness onset. No symptoms or risks identified at this time. Initial Sepsis Screen: Does the patient meet any 2 criteria? No. Patient's initial sepsis screen is negative. Does the patient have a suspected source of infection? No. Patient's initial sepsis screen is negative. Risk Assessment: Do you want to hurt yourself or someone else? Patient reports no desire to harm self or others. Onset of symptoms was March 19, 2024. 15:14 Method Of Arrival: Ambulatory tm6 15:14 Acuity: OLEG 4 tm6 Triage Assessment: 15:15 General: Appears in no apparent distress. Behavior is calm, cooperative. Pain: tm6 Complains of pain in anterior aspect of left shoulder and posterior aspect of left shoulder Pain does not radiate. Pain currently is 10 out of 10 on a pain scale. Pain began three weeks ago. EENT: No signs and/or symptoms were reported regarding the EENT system. Neuro: Level of Consciousness is awake, alert, obeys commands, Oriented to person, place, time, situation. Cardiovascular: Patient's skin is warm and dry. Respiratory: Airway is patent Respiratory effort is even, unlabored, Respiratory pattern is regular, symmetrical. 15:19 General:. GI: Abdomen is flat, non-distended. : No signs and/or symptoms were tm6 reported regarding the genitourinary system. Derm: No signs and/or symptoms reported regarding the dermatologic system. Musculoskeletal: Reports pain in left arm and posterior aspect of left shoulder and anterior aspect of left shoulder Pain is 10 out of 10 on a pain scale. Historical: - Allergies: 15:15 ceftriaxone; tm6 15:15 Ciprofloxacin; tm6 15:15 Iodine; tm6 15:15 LACTASE; tm6 15:15 Promethazine; tm6 - PMHx: 15:15 cirrhosis of liver; Crohn's Disease; hypotension; kidney disease; Liver transplant (Jul); trach removed Jun 2022; - PSHx: 15:15 bowel resection; Cholecystectomy; Colectomy; liver transplant; left shoulder tm6 replacement (liver transplant); - Immunization history:: Client reports receiving the 2nd dose of the Covid vaccine. - Infectious Disease History:: Denies. - Social history:: Smoking status: Patient reports the use of cigarette tobacco products, smokes two packs cigarettes per day. Patient/guardian denies using alcohol. - Family history:: not pertinent. - Hospitalizations: : No recent hospitalization is reported. Screenin:22 [facility] ED Fall Risk Assessment (Adult) History of falling in the last 3 months, tl4 including since admission No falls in past 3 months (0 pts) Confusion or Disorientation No (0 pts) Intoxicated or Sedated No (0 pts) Impaired Gait No (0 pts) Mobility Assist Device Used No (0 pt) Altered Elimination No (0 pt) Score/Fall Risk Level 0 - 2 = Low Risk Oriented to surroundings, Maintained a safe environment, Hourly rounding (assess needs \T\ fall precautionary measures) done. Abuse screen: Denies threats or abuse. Nutritional screening: No deficits noted. Tuberculosis screening: No symptoms or risk factors identified. Assessment: 16:22 General: Appears in no apparent distress. Behavior is calm, cooperative. Pain: tl4 Complains of pain in anterior aspect of left shoulder Pain currently is 9 out of 10 on a pain scale. Neuro: No deficits noted. Cardiovascular: No deficits noted. Respiratory: No deficits noted. GI: No deficits noted. : No deficits noted. EENT: No deficits noted. Derm: No deficits noted. Musculoskeletal: Range of motion: limited in left shoulder Reports pain in left shoulder. Vital Signs: 15:11 BP 146 / 109; Pulse 78; Resp 19; Temp 96.5(TE); Pulse Ox 100% on R/A; Weight 43.09 kg; tm6 Height 4 ft. 11 in. ; Pain 10/10; 16:36 BP 149 / 94; Pulse 82; Resp 16; Pulse Ox 97% ; tl4 15:11 Body Mass Index 19.19 (43.09 kg, 149.86 cm) tm6 15:11 Pain Scale: Adult tm6 ED Course: 15:04 Patient arrived in ED. mr 15:06 Beau Encarnacion MD is Attending Physician. rn 15:15 Triage completed. tm6 15:19 Arm band placed on right wrist. tm6 15:38 Luis Alfredo Vasquez, AMARILIS is Primary Nurse. tl4 16:22 Patient has correct armband on for positive identification. Bed in low position. Call tl4 light in reach. Side rails up X 1. Provided Education on: CALL LIGHT, MEDICATIONS. Warm blanket given. 16:22 No provider procedures requiring assistance completed. Patient did not have IV access tl4 during this emergency room visit. Administered Medications: 15:51 Drug: morphine IM 4 mg IM once Route: IM; Site: left deltoid; tl4 16:06 Follow up: Response: No adverse reaction tl4 Medication: 16:22 VIS not applicable for this client. tl4 Outcome: 16:19 Discharge ordered by . rn 16:35 Discharged to home ambulatory, tl4 16:35 Condition: stable 16:35 Discharge instructions given to patient, Instructed on discharge instructions, follow up and referral plans. Demonstrated understanding of instructions, follow-up care, 16:36 Patient left the ED. tl4 Signatures: Mary Ann Lopez, Reg Reg mr Beau Encarnacion MD MD rn Masterson, Tawney, RN RN tm6 Luis Alfredo Vasquez RN RN tl4
--- NOTE | 2024-04-09 16:19 | EDPHYS ---
Physician Documentation [facility] Name: Bella Barron Age: 63 yrs Sex: Female : 1960 Arrival Date: 04/09/2024 Time: 15:00 Bed 19 Private MD: ED Physician Beau Encarnacion HPI: 04/09 15:56 This 63 yrs old Female presents to ER via Ambulatory with complaints of Shoulder Pain. rn 15:56 The patient or guardian complains of pain. left shoulder. rn 15:56 Onset: The symptoms/episode began/occurred at an unknown time. The patient has rn experienced similar episodes in the past. Patient reports humerus fracture a while back, finally had surgery weeks ago, ran out of her prescriptive hydrocodone. No new injury or problems, came in for persistent pain. Isolated pain at surgical site that has not changed. Wound healed and no signs of infection. No fever or chills. Has prescription for another hydrocodone but cannot fill prescription until next Saturday.. Historical: - Allergies: 15:15 ceftriaxone; tm6 15:15 Ciprofloxacin; tm6 15:15 Iodine; tm6 15:15 LACTASE; tm6 15:15 Promethazine; tm6 - PMHx: 15:15 cirrhosis of liver; Crohn's Disease; hypotension; kidney disease; Liver transplant (Jul); trach removed Jun 2022; - PSHx: 15:15 bowel resection; Cholecystectomy; Colectomy; liver transplant; left shoulder tm6 replacement (liver transplant); - Immunization history:: Client reports receiving the 2nd dose of the Covid vaccine. - Infectious Disease History:: Denies. - Social history:: Smoking status: Patient reports the use of cigarette tobacco products, smokes two packs cigarettes per day. Patient/guardian denies using alcohol. - Family history:: not pertinent. - Hospitalizations: : No recent hospitalization is reported. ROS: 15:56 Constitutional: Negative for fever, chills, and weight loss, Cardiovascular: Negative rn for chest pain, palpitations, and edema, Respiratory: Negative for shortness of breath, cough, wheezing, and pleuritic chest pain, Abdomen/GI: Negative for abdominal pain, nausea, vomiting, diarrhea, and constipation, MS/Extremity: Positive for surgery to left humerus Exam: 15:56 Constitutional: This is a well developed, well nourished patient who is awake, alert, rn and in no acute distress. Cardiovascular: Regular rate and rhythm. No pulse deficits. Respiratory: No increased work of breathing, no retractions or nasal flaring. MS/ Extremity: Pulses equal, no cyanosis. Neurovascular intact. No ecchymosis, arm soft, no sign of infection or cellulitis. Vital Signs: 15:11 BP 146 / 109; Pulse 78; Resp 19; Temp 96.5(TE); Pulse Ox 100% on R/A; Weight 43.09 kg; tm6 Height 4 ft. 11 in. ; Pain 10/10; 16:36 BP 149 / 94; Pulse 82; Resp 16; Pulse Ox 97% ; tl4 15:11 Body Mass Index 19.19 (43.09 kg, 149.86 cm) tm6 15:11 Pain Scale: Adult tm6 MDM: 15:06 Patient medically screened. rn 16:17 Differential diagnosis: Postoperative pain, chronic pain syndrome, encounter for rn refill. Data reviewed: vital signs, nurses notes, old medical records, and as a result, I will discharge patient. Counseling: I had a detailed discussion with the patient and/or guardian regarding the historical points, exam findings, and any diagnostic results supporting the discharge/admit diagnosis, the need for outpatient follow up, to return to the emergency department if symptoms worsen or persist or if there are any questions or concerns that arise at home. Response to treatment: the patient's symptoms have mildly improved after treatment, and as a result, I will discharge patient. Special discussion: I discussed with the patient/guardian in detail that at this point there is no indication for admission to the hospital. It is understood, however, that if the symptoms persist or worsen the patient needs to return immediately for re-evaluation. Administered Medications: 15:51 Drug: morphine IM 4 mg IM once Route: IM; Site: left deltoid; tl4 16:06 Follow up: Response: No adverse reaction tl4 Disposition Summary: 04/09/24 16:19 Discharge Ordered Notes: Location: Home rn Problem: new rn Symptoms: have improved rn Condition: Stable rn Diagnosis - Post-operative pain rn Followup: rn - With: Private Physician - When: As needed - Reason: Recheck today's complaints, Re-evaluation by your physician Discharge Instructions: - Discharge Summary Sheet rn - Opioid Pain Medicine Management rn - Managing Pain Without Opioids rn Forms: - Medication Reconciliation Form rn - Antibiotic program manager rn - Prescription Opioid Use rn - Patient Portal Instructions rn - Leadership Thank You Letter rn Signatures: Beau Encarnacion MD MD rn Masterson, Tawney RN RN tm6 Luis Alfredo Vasquez RN RN tl4
[2024-04-09 17:02] VITALS: TEMP 96.5
[2024-04-09 17:04] VITALS: BP 149/94; O2SAT 97
== END 2024-04-09 16:36 | disposition home or self-care (01) ==
LOC: ER 15:00
DX: G89.18 Other acute postprocedural pain (principal); F17.210 Nicotine dependence, cigarettes, uncomplicated; Z94.4 Liver transplant status; Z96.612 Presence of left artificial shoulder joint
CPT/HCPCS: 96372; 99284

== ENCOUNTER 2024-04-12 19:56 | Emergency (ER) | payer OTHER ==
[2024-04-12] MEDS ORDERED: FENTANYL CITR 100 MCG/2 ML ONE (21:48)
--- NOTE | 2024-04-12 22:11 | RAD REPORT ---
EXAM DESCRIPTION: RAD - Humerus Left - 04/12/2024 10:06 pm CLINICAL HISTORY: PAIN COMPARISON: <Comparisons> FINDINGS: Left total shoulder arthroplasty is noted. No hardware complication seen. No fracture appa rent.
--- NOTE | 2024-04-12 22:14 | RAD REPORT ---
EXAM DESCRIPTION: US - UPPER EXTREMITY VENOUS UNILATE - 04/12/2024 10:07 pm CLINICAL HISTORY: Pain;Swelling Arm pain and swelling COMPARISON: <Comparisons> FINDINGS: Left upper extremity venous system was interrogated with Doppler technique. Thrombus is se en in the proximal and mid cephalic vein. No additional areas of DVT seen. IMPRESSION: Mild thrombus is seen in the cephalic vein. No additional DVT evident
--- NOTE | 2024-04-12 23:00 | ER ---
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 ap3 patient reports she was given a new prescription for pain control at her follow up appointment, however it never went through to her pharmacy and she is having pain that she rates a 10/10 on the pain scale. Coronavirus screen: At this time, the client does not indicate any symptoms associated with coronavirus-19. Ebola Screen: No symptoms or risks identified at this time. Initial Sepsis Screen: Does the patient meet any 2 criteria? No. Patient's initial sepsis screen is negative. Does the patient have a suspected source of infection? No. Patient's initial sepsis screen is negative. Risk Assessment: Do you want to hurt yourself or someone else? Patient reports no desire to harm self or others. Onset of symptoms is unknown. 20:23 Method Of Arrival: Wheelchair ap3 20:23 Acuity: OLEG 4 ap3 Triage Assessment: 20:27 General: Appears in no apparent distress. Behavior is calm, cooperative, appropriate ap3 for age. Pain: Complains of pain in left arm Pain currently is 10 out of 10 on a pain scale. Neuro: Level of Consciousness is awake, alert, obeys commands, Oriented to person, place, time, situation. Cardiovascular: Patient's skin is warm and dry. Respiratory: Airway is patent Respiratory effort is even, unlabored, Respiratory pattern is regular, symmetrical. Historical: - Allergies: 20:26 ceftriaxone; ap3 20:26 Ciprofloxacin; ap3 20:26 Iodine; ap3 20:26 LACTASE; ap3 20:26 Promethazine; ap3 - PMHx: 20:26 cirrhosis of liver; Crohn's Disease; hypotension; kidney disease; Liver transplant (Jul); trach removed Jun 2022; - PSHx: 20:26 bowel resection; Cholecystectomy; Colectomy; left shoulder replacement (tr); liver ap3 transplant; - Immunization history:: Client reports receiving the 2nd dose of the Covid vaccine. - Infectious Disease History:: Denies. - Social history:: Smoking status: Patient reports the use of cigarette tobacco products, smokes 1.5 packs per day. Screenin:27 Abuse screen: Denies threats or abuse. Nutritional screening: No deficits noted. ap3 Tuberculosis screening: No symptoms or risk factors identified. 20:30 [facility] [place] ED Fall Risk Assessment (Adult) History of falling in the last 3 months, rg5 including since admission No falls in past 3 months (0 pts) Confusion or Disorientation No (0 pts) Intoxicated or Sedated No (0 pts) Impaired Gait No (0 pts) Mobility Assist Device Used No (0 pt) Altered Elimination No (0 pt) Score/Fall Risk Level 0 - 2 = Low Risk Oriented to surroundings, Maintained a safe environment, Educated pt \T\ family on fall prevention, incl call for assistance when getting out of bed, Hourly rounding (assess needs \T\ fall precautionary measures) done. Assessment: 20:30 General: Appears in no apparent distress. rg5 20:30 Pain: Complains of pain in left arm Pain currently is 10 out of 10 on a pain scale. rg5 Quality of pain is described as aching. Neuro: Level of Consciousness is awake, alert, obeys commands, Oriented to person, place, time. Cardiovascular: Denies chest pain, Heart tones S1 S2 Patient's skin is warm and dry. Respiratory: Respiratory effort is even, unlabored, Respiratory pattern is regular, symmetrical. GI: Abdomen is round non-distended. : No signs and/or symptoms were reported regarding the genitourinary system. EENT: No deficits noted. Derm: Skin is intact, Skin is dry, Skin is normal, Skin temperature is warm. Musculoskeletal: Range of motion: intact in all extremities. 21:36 Reassessment: No changes from previously documented assessment. Patient and/or family rg5 updated on plan of care and expected duration. Pain level reassessed. 22:54 Reassessment: No changes from previously documented assessment. Patient and/or family rg5 updated on plan of care and expected duration. Pain level reassessed. Vital Signs: 20:23 BP 108 / 72; Pulse 88; Resp 18; Temp 98.5; Pulse Ox 100% ; Weight 68.04 kg; Height 4 ap3 ft. 11 in. ; Pain 10/10; 20:30 BP 119 / 78; Pulse 76; Resp 17; Temp 98; Pulse Ox 98% on R/A; Pain 9/10; rg5 21:30 BP 142 / 90; Pulse 88; Resp 17; Pulse Ox 96% on R/A; Pain 10/10; rg5 22:45 BP 135 / 87; Pulse 87; Resp 17; Pain 6/10; rg5 20:23 Body Mass Index 30.30 (68.04 kg, 149.86 cm) ap3 20:23 Pain Scale: Adult ap3 20:30 Pain Scale: Adult rg5 21:30 Pain Scale: Adult rg5 22:45 Pain Scale: Adult rg5 ED Course: 20:11 Patient arrived in ED. gm2 20:18 James Busby PA is PHCP. cp 20:19 Ruddy Hollins MD is Attending Physician. cp 20:26 Triage completed. ap3 20:30 Patient has correct armband on for positive identification. Placed in gown. Bed in low rg5 position. Call light in reach. Side rails up X 1. 20:30 Arm band placed on left wrist. rg5 20:30 No provider procedures requiring assistance completed. Patient did not have IV access rg5 during this emergency room visit. 21:41 Ganesh Montero, RN is Primary Nurse. rg5 22:07 XRAY Humerus LEFT In Process Unspecified. EDMS 22:10 UPPER EXTREMITY VENOUS UNILATE In Process Unspecified. EDMS 22:51 Awaiting radiology results. rg5 23:22 Provided Education on: post er care. rg5 Administered Medications: 22:05 Drug: fentaNYL (PF) IM 50 mcg IM once Route: IM; Site: right deltoid; rg5 23:19 Follow up: Response: No adverse reaction; Pain is decreased rg5 Medication: 20:30 VIS not applicable for this client. rg5 Outcome: 22:59 Discharge ordered by . cp 23:22 Discharged to home ambulatory, rg5 23:22 Condition: stable 23:22 Discharge instructions given to patient, family, Instructed on discharge instructions, follow up and referral plans. Demonstrated understanding of instructions, follow-up care, 23:27 Patient left the ED. rg5 Signatures: Dispatcher [employer] EDMS James Busby PA PA cp Prokisch, Callie, RN RN ap3 Halima Deleon gm2 Ganesh Montero, AMARILIS RN rg5 Corrections: (The following items were deleted from the chart) 22:51 21:30 BP 142 / 90; Pulse 88bpm; Resp 17bpm; Pulse Ox 96% RA; Pain 7/10, Adult; rg5 rg5
--- NOTE | 2024-04-12 23:00 | EDPHYS ---
Physician Documentation [facility] Name: Bella Barron Age: 63 yrs Sex: Female : 1960 Arrival Date: 04/12/2024 Time: 19:56 Bed 18 Private MD: ED Physician Ruddy Hollins HPI: 04/12 21:35 This 63 yrs old Female presents to ER via Wheelchair with complaints of Arm Pain. cp 21:35 The patient or guardian complains of pain. cp 21:35 The complaints affect the left upper arm. Context: Patient reports having left humerus cp surgery with hardware placement about 3 weeks ago. Patient reports running out of prescribed pain medications and pain increased today. Treatment prior to arrival includes: no previous treatment. Associated signs and symptoms: Pertinent negatives: chest pain, shortness of breath. Severity of symptoms: in the emergency department the symptoms. Historical: - Allergies: 20:26 ceftriaxone; ap3 20:26 Ciprofloxacin; ap3 20:26 Iodine; ap3 20:26 LACTASE; ap3 20:26 Promethazine; ap3 - PMHx: 20:26 cirrhosis of liver; Crohn's Disease; hypotension; kidney disease; Liver transplant (Jul); trach removed Jun 2022; - PSHx: 20:26 bowel resection; Cholecystectomy; Colectomy; left shoulder replacement (tr); liver ap3 transplant; - Immunization history:: Client reports receiving the 2nd dose of the Covid vaccine. - Infectious Disease History:: Denies. - Social history:: Smoking status: Patient reports the use of cigarette tobacco products, smokes 1.5 packs per day. ROS: 21:40 Constitutional: Negative for body aches, chills, fever, poor PO intake, cp 21:40 Eyes: Negative for injury, pain, redness, and discharge, cp 21:40 ENT: Negative for drainage from ear(s), ear pain, sore throat, difficulty swallowing, difficulty handling secretions, 21:40 Neck: Negative for pain with movement, pain at rest, stiffness, 21:40 Cardiovascular: Negative for chest pain, palpitations, 21:40 Respiratory: Negative for cough, shortness of breath, wheezing, 21:40 Abdomen/GI: Negative for abdominal pain, vomiting, diarrhea, constipation, 21:40 Back: Negative for pain at rest, pain with movement, 21:40 MS/extremity: Positive for ecchymosis, pain, swelling, tenderness, of the left upper arm, 21:40 Neuro: Negative for altered mental status, dizziness, headache, numbness, syncope, weakness, 21:40 All other systems are negative, Exam: 21:45 Constitutional: The patient appears in no acute distress, alert, awake, cp non-diaphoretic, non-toxic, well developed, well nourished, 21:45 Head/Face: Normocephalic, atraumatic. cp 21:45 Eyes: Periorbital structures: appear normal, Conjunctiva: normal, no exudate, no injection, Sclera: no appreciated abnormality, Lids and lashes: appear normal, bilaterally, 21:45 ENT: External ear(s): are unremarkable, Nose: is normal, Mouth: Lips: moist, Oral mucosa: pink and intact, moist, Posterior pharynx: Airway: no evidence of obstruction, patent, 21:45 Neck: C-spine: vertebral tenderness, is not appreciated, crepitus, is not appreciated, ROM/movement: is normal, is supple, without pain, no range of motions limitations, no meningismus, no nuchal rigidity, 21:45 Chest/axilla: Inspection: normal, Palpation: is normal, no crepitus, no tenderness, 21:45 Cardiovascular: Rate: normal, Rhythm: regular, Pulses: Pulses are 2+ in left radial artery. JVD: is not appreciated, 21:45 Respiratory: the patient does not display signs of respiratory distress, Respirations: normal, no use of accessory muscles, no retractions, labored breathing, is not present, Breath sounds: are clear throughout, no decreased breath sounds, no stridor, no wheezing, 21:45 Abdomen/GI: Inspection: abdomen appears normal, Palpation: abdomen is soft and non-tender, in all quadrants, 21:45 Musculoskeletal/extremity: Extremities: noted in the left upper arm: ecchymosis, pain, swelling, tenderness, ROM: limited passive range of motion due to pain, in the left shoulder and left arm, 21:45 Skin: anterior upper arm surgical scar appears w/o erythema. 21:45 Neuro: Orientation: to person, place \T\ time. Mentation: is normal, Vital Signs: 20:23 BP 108 / 72; Pulse 88; Resp 18; Temp 98.5; Pulse Ox 100% ; Weight 68.04 kg; Height 4 ap3 ft. 11 in. ; Pain 10/10; 20:30 BP 119 / 78; Pulse 76; Resp 17; Temp 98; Pulse Ox 98% on R/A; Pain 9/10; rg5 21:30 BP 142 / 90; Pulse 88; Resp 17; Pulse Ox 96% on R/A; Pain 10/10; rg5 22:45 BP 135 / 87; Pulse 87; Resp 17; Pain 6/10; rg5 20:23 Body Mass Index 30.30 (68.04 kg, 149.86 cm) ap3 20:23 Pain Scale: Adult ap3 20:30 Pain Scale: Adult rg5 21:30 Pain Scale: Adult rg5 22:45 Pain Scale: Adult rg5 MDM: 20:34 Patient medically screened. 23:00 Data reviewed: vital signs, nurses notes, radiologic studies, plain films, ultrasound, cp and as a result, I will discharge patient. 23:00 Differential diagnosis: dvt, cellulitis, abscess, sepsis. I considered the following cp discharge prescriptions or medication management in the emergency department Medications were administered in the Emergency Department. See MAR. Counseling: I had a detailed discussion with the patient and/or guardian regarding the historical points, exam findings, and any diagnostic results supporting the discharge/admit diagnosis, radiology results, the need for outpatient follow up, a orthopedic surgeon, to return to the emergency department if symptoms worsen or persist or if there are any questions or concerns that arise at home. 04/12 21:34 Order name: XRAY Humerus LEFT; Complete Time: 22:42 04/12 23:00 Interpretation: Report reviewed. 04/12 21:39 Order name: UPPER EXTREMITY VENOUS UNILATE; Complete Time: 22:42 EDMS Administered Medications: 22:05 Drug: fentaNYL (PF) IM 50 mcg IM once Route: IM; Site: right deltoid; rg5 23:19 Follow up: Response: No adverse reaction; Pain is decreased rg5 Disposition Summary: 04/12/24 22:59 Discharge Ordered Notes: Location: Home cp Problem: new cp Symptoms: have improved cp Condition: Stable cp Diagnosis - Pain in left upper arm - post surgical cp - Acute embolism and thrombosis of unspecified veins of left upper extremity - cp cephalic vein Followup: cp - With: Private Physician - When: 5 - 6 days - Reason: Recheck today's complaints Discharge Instructions: - Discharge Summary Sheet cp - Musculoskeletal Pain cp - Aspirin and Your Heart cp - Heat Therapy cp - Thrombophlebitis cp Forms: - Medication Reconciliation Form cp - Antibiotic Education cp - Prescription Opioid Use cp - Patient Portal Instructions cp - Leadership Thank You Letter cp Addendum: 04/19/2024 20:32 I was immediately available for consultation during this patient's visit. I did not e c2 personally see the patient or discuss the patient with the REUBEN. . Signatures: Dispatcher [employer] EDMS James Busby PA PA cp Prokisch, Amanda, RN RN ap3 Ruddy Hollins MD MD ec2 Ganesh Montero RN RN rg5 Corrections: (The following items were deleted from the chart) 04/12 21:37 21:35 Extremity Venous Uni [email or web address] ordered. EDMS EDMS
[2024-04-12 23:48] VITALS: TEMP 98
[2024-04-12 23:50] VITALS: O2SAT 96
[2024-04-12 23:52] VITALS: BP 135/87
== END 2024-04-12 23:27 | disposition home or self-care (01) ==
LOC: ER 19:56
DX: I82.612 Acute embolism and thrombosis of superficial veins of left upper extremity (principal); Z98.890 Other specified postprocedural states; F17.210 Nicotine dependence, cigarettes, uncomplicated; Z96.612 Presence of left artificial shoulder joint
CPT/HCPCS: 73060; 93971; 96372; 99284; J3010

== ENCOUNTER 2024-04-14 22:00 | Emergency (ER) | payer OTHER ==
[2024-04-14] MEDS ORDERED: NA CHLORIDE 0.9% 1,000 ML ONE (23:47)
[2024-04-14] MEDS ORDERED: PANTOPRAZOLE 40 MG INJ ONE (23:47)
[2024-04-14] MEDS ORDERED: NA CHLORIDE 0.9% 500 ML ONE (23:48)
--- NOTE | 2024-04-15 00:17 | EDPHYS ---
Physician Documentation [facility] Name: Bella Barron Age: 63 yrs Sex: Female : 1960 Arrival Date: 04/14/2024 Time: 22:00 Bed 5 Private MD: SARAH Physician James Rossi HPI: 04/15 00:08 This 63 yrs old Female presents to ER via Wheelchair with complaints of david Abdominal Pain, Arm Pain. 00:08 The patient or guardian complains of pain, that is chronic. The complaints affect the david anterior aspect of right shoulder and posterior aspect of right shoulder, anterior aspect of left shoulder and posterior aspect of left shoulder. Context: The problem was sustained at home, resulted from unknown cause. Historical: - Allergies: 04/14 22:52 ceftriaxone; jb4 22:52 Iodine; jb4 22:52 Ciprofloxacin; jb4 22:52 LACTASE; jb4 22:52 Promethazine; jb4 22:52 EGG DERIVED; jb4 - PMHx: 22:52 cirrhosis of liver; Crohn's Disease; hypotension; kidney disease; Liver transplant (Jul); trach removed Jun 2022; - PSHx: 22:52 bowel resection; Colectomy; Cholecystectomy; left shoulder replacement; liver transplant; - Immunization history:: Adult Immunizations up to date. - Infectious Disease History:: Denies. - Social history:: Smoking status: unknown. ROS: 04/15 00:10 Constitutional: Negative for fever, chills, and weight loss, Eyes: Negative for injury, david pain, redness, and discharge, ENT: Negative for injury, pain, and discharge, Neck: Negative for injury, pain, and swelling, Cardiovascular: Negative for chest pain, palpitations, and edema, Respiratory: Negative for shortness of breath, cough, wheezing, and pleuritic chest pain, Back: Negative for injury and pain, : Negative for injury, bleeding, discharge, and swelling, MS/Extremity: Negative for injury and deformity, Skin: Negative for injury, rash, and discoloration, Neuro: Negative for headache, weakness, numbness, tingling, and seizure, Psych: Negative for depression, anxiety, suicide ideation, homicidal ideation, and hallucinations, Allergy/Immunology: Negative for hives, rash, and allergies, Endocrine: Negative for neck swelling, polydipsia, polyuria, polyphagia, and marked weight changes, Hematologic/Lymphatic: Negative for swollen nodes, abnormal bleeding, and unusual bruising, Abdomen/GI: Positive for abdominal pain, nausea, abdominal cramps, abdominal distension, black/tarry stool, Exam: 00:10 Constitutional: This is a well developed, well nourished patient who is awake, alert, david and in no acute distress. Head/Face: Normocephalic, atraumatic. Eyes: Pupils equal round and reactive to light, extra-ocular motions intact. Lids and lashes normal. Conjunctiva and sclera are non-icteric and not injected. Cornea within normal limits. Periorbital areas with no swelling, redness, or edema. ENT: Nares patent. No nasal discharge, no septal abnormalities noted. Tympanic membranes are normal and external auditory canals are clear. Oropharynx with no redness, swelling, or masses, exudates, or evidence of obstruction, uvula midline. Mucous membranes moist. Neck: Trachea midline, no thyromegaly or masses palpated, and no cervical lymphadenopathy. Supple, full range of motion without nuchal rigidity, or vertebral point tenderness. No Meningismus. Chest/axilla: Normal chest wall appearance and motion. Nontender with no deformity. No lesions are appreciated. Cardiovascular: Regular rate and rhythm with a normal S1 and S2. No gallops, murmurs, or rubs. Normal PMI, no JVD. No pulse deficits. Respiratory: Lungs have equal breath sounds bilaterally, clear to auscultation and percussion. No rales, rhonchi or wheezes noted. No increased work of breathing, no retractions or nasal flaring. Back: No spinal tenderness. No costovertebral tenderness. Full range of motion. Female : Normal external genitalia. Skin: Warm, dry with normal turgor. Normal color with no rashes, no lesions, and no evidence of cellulitis. MS/ Extremity: Pulses equal, no cyanosis. Neurovascular intact. Full, normal range of motion. Neuro: Awake and alert, GCS 15, oriented to person, place, time, and situation. Cranial nerves II-XII grossly intact. Motor strength 5/5 in all extremities. Sensory grossly intact. Cerebellar exam normal. Normal gait. Psych: Awake, alert, with orientation to person, place and time. Behavior, mood, and affect are within normal limits. 00:10 ECG was reviewed by the Attending Physician. 00:10 Abdomen/GI: Inspection: abdomen appears normal, Bowel sounds: normal, Palpation: moderate abdominal tenderness, in the epigastric area, right upper quadrant and left upper quadrant, Liver: no appreciated palpable abnormalities, Hernia: not appreciated, Vital Signs: 04/14 22:48 BP 113 / 71; Pulse 112; Resp 18; Temp 97; Pulse Ox 100% ; Weight 70.31 kg; Height 4 ft. jb4 11 in. ; Pain 10/10; 23:38 BP 100 / 68; Pulse 103; Resp 17; Temp 97; Pulse Ox 97% ; Pain 10/10; bm8 04/15 01:22 BP 102 / 67; Pulse 99; Resp 18; Temp 97; Pulse Ox 98% ; Pain 10/10; bm8 03:09 BP 105 / 66; Pulse 99; Resp 17; Temp 97; Pulse Ox 99% ; Pain 8/10; bm8 04/14 22:48 Body Mass Index 31.31 (70.31 kg, 149.86 cm) [facility] 04/14 22:48 Pain Scale: Adult jb4 23:38 Pain Scale: Adult bm8 04/15 01:22 Pain Scale: Adult bm8 03:09 Pain Scale: Adult bm8 [place] Coma Score: 04/14 23:38 Eye Response: spontaneous(4). Motor Response: obeys commands(6). Verbal Response: bm8 oriented(5). Total: 15. 04/15 01:22 Eye Response: spontaneous(4). Motor Response: obeys commands(6). Verbal Response: bm8 oriented(5). Total: 15. 03:09 Eye Response: spontaneous(4). Motor Response: obeys commands(6). Verbal Response: bm8 oriented(5). Total: 15. Procedures: 03:38 Peripheral line: by aseptic technique a peripheral line was placed in the right [facility] external jugular vein. MDM: 04/14 23:07 Patient medically screened. [facility] 04/15 00:13 Differential diagnosis: tendonitis, gastritis, hemorrhagic shock, varices, bowel david obstruction, diverticulitis, gastritis, gastroesophageal reflux disease, GI Bleed, non-specific abd pain, pancreatitis, Peptic Ulcer Disease, Perf. Duodenal Ulcer, Perf. Gastric Ulcer, Ureterolithiasis, urinary tract infection. Data reviewed: vital signs, nurses notes, EMS record, lab test result(s), EKG, radiologic studies, CT scan, plain films. Consideration of Admission/Observation Escalation of care including admission/observation considered. I considered the following discharge prescriptions or medication management in the emergency department Medications were administered in the Emergency Department. See MAR. Independent interpretation of the following test(s) in the Emergency Department EKG: See my EKG interpretation above. Test considered but Not performed: Ultrasound no abd usg. Care significantly affected by the following chronic conditions: Obesity, cirrhosis, starkey, hypotension, crohns, liver transplant. 04/14 23:11 Order name: Basic Metabolic Panel; Complete Time: 01:07 [facility] 04/14 23:11 Order name: CBC with Diff; Complete Time: 02:02 [facility] 04/14 23:11 Order name: LFT's; Complete Time: 01:07 [facility] 04/14 23:11 Order name: Magnesium; Complete Time: 01:07 [facility] 04/14 23:11 Order name: NT PRO-BNP; Complete Time: 01:07 [facility] 04/14 23:11 Order name: PT-INR; Complete Time: 01:07 [facility] 04/14 23:11 Order name: Troponin HS; Complete Time: 01:07 [facility] 04/14 23:11 Order name: Urinalysis w/ reflexes; Complete Time: 02:02 [facility] 04/14 23:11 Order name: Lipase; Complete Time: 01:07 [facility] 04/14 23:11 Order name: Type And Screen; Complete Time: 01:10 [facility] 04/14 23:11 Order name: AMMONIA; Complete Time: 01:07 [facility] 04/15 00:49 Order name: Manual Differential; Complete Time: 02:02 EDMS 04/15 01:09 Order name: ABG [facility] 04/15 01:14 Order name: Blood Culture Adult (2) [facility] 04/15 01:14 Order name: Lactate w/ 2H reflex if indic. [facility] 04/14 23:11 Order name: XRAY Chest (1 view) [facility] 04/14 23:11 Order name: CT Abd/Pelvis - Without Contrast [facility] 04/14 23:11 Order name: Cardiac monitoring; Complete Time: 23:53 [facility] 04/14 23:11 Order name: EKG - Nurse/Tech; Complete Time: 23:53 [facility] 04/14 23:11 Order name: IV Saline Lock; Complete Time: 00:13 [facility] 04/14 23:11 Order name: Labs collected and sent; Complete Time: 00:13 [facility] 04/14 23:11 Order name: O2 Per Protocol; Complete Time: 23:53 [facility] 04/14 23:11 Order name: O2 Sat Monitoring; Complete Time: 23:53 [facility] 04/14 23:11 Order name: IV Saline Lock - Large Bore; Complete Time: 00:13 [facility] EC:10 Rate is 99 beats/min. Rhythm is regular. QRS [place] is Normal. PA interval is normal. QRS david interval is normal. QT interval is normal. No Q waves. T waves are Normal. No ST changes noted. 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 Interpreted by me. Reviewed by me. Administered Medications: 01:09 Discontinued: ns 0.9% 1000 ml IV at 125 ml/hr continuous [facility] 00:12 Drug: NS 0.9% IV 1000 ml IV at 125 ml/hr continuous Route: IV; Rate: 125 ml/hr; Site: [facility] right antecubital; :29 Follow up: Response: No adverse reaction; IV Status: Order to discontinue infusion; IV 8 Intake: 250ml 00:13 Drug: Pantoprazole IVP 40 mg IVP once Route: IVP; Site: right antecubital; 8 01:29 Follow up: Response: No adverse reaction [facility] 00:13 Drug: NS 0.9% IV 500 ml IV at bolus once Route: IV; Rate: bolus; Site: right 8 antecubital; 00:45 Follow up: Response: No adverse reaction; IV Status: Completed infusion; IV Intake: bm8 500ml 00:44 Drug: Pantoprazole IVP 40 mg IVP once Route: IVP; Site: right antecubital; 8 01:29 Follow up: Response: No adverse reaction 8 00:44 Drug: Pantoprazole IV 8 mg/hr IV at 25 ml/hr continuous; (Standard dilution is 80 mg in bm8 250 mL NS) Route: IV; Rate: 25 ml/hr; Site: right antecubital; 03:44 Follow up: Response: No adverse reaction; IV Status: Infusion continued upon transfer 8 01:57 Drug: Piperacillin-Tazobactam IVPB 2.25 grams IVPB once over 60 mins; (mix in NS 100 bm8 mL) Route: IVPB; Infused Over: 60 mins; Site: right antecubital; 02:08 Follow up: Response: No adverse reaction; IV Status: Completed infusion; IV Intake: bm8 100ml 02:09 Drug: morphine IVP or IV 4 mg IVP once over 4 mins Route: IVP; Infused Over: 4 mins; bm8 Site: right antecubital; 02:10 Follow up: Response: No adverse reaction bm8 03:08 Drug: morphine IVP or IV 4 mg IVP once over 4 mins Route: IVP; Infused Over: 4 mins; bm8 Site: right antecubital; 03:44 Follow up: Response: No adverse reaction bm8 Disposition Summary: 04/15/24 00:17 Transfer Ordered Notes: Transfer Location: [facility] david Reason: Higher level of care david Condition: Fair david Problem: new david Symptoms: are unchanged david Accepting Physician: [facility](04/15/24 03:46) bm8 Diagnosis - Epigastric abdominal tenderness david - Nausea david - GI Bleed/ Gastrointestinal hemorrhage, unspecified - upper david - Liver transplant status - 2021/ [facility] - Acute kidney failure, unspecified - on Chronic david - Anemia, unspecified david - Elevated white blood cell count david Forms: - Medication Reconciliation Form david - SBAR form david Signatures: Dispatcher [employer] EDJames Lubin MD MD cha Bryson, James, RN RN jb4 Domenic Dawson, RN RN bm8 Corrections: (The following items were deleted from the chart) 04/14 23:11 23:11 BASIC METABOLIC PANEL+C.LAB.BRZ ordered. EDMS EDMS 23:11 23:11 CBC+H.LAB.BRZ ordered. EDMS EDMS 23:11 23:11 HEPATIC FUNCTION+C.LAB.BRZ ordered. EDMS EDMS 23:11 23:11 MAGNESIUM+C.LAB.BRZ ordered. EDMS EDMS 23:11 23:11 PROBNP+C.LAB.BRZ ordered. EDMS EDMS 23:11 23:11 PROTIME (+INR)+COAG.LAB.BRZ ordered. EDMS EDMS 23:11 23:11 Troponin High Sensitivity+C.LAB.BRZ ordered. EDMS EDMS 23:11 23:11 Urinalysis+U.LAB.BRZ ordered. EDMS EDMS 23: 23:11 LIPASE+C.LAB.BRZ ordered. EDMS EDMS 23:11 23:11 TYPE AND SCREEN+BB.LAB.BRZ ordered. EDMS EDMS 23: 23:11 AMMONIA+C.LAB.BRZ ordered. EDMS EDMS 23:12 23:12 Abdomen Pelvis Wo Con+CT.RAD.BRZ ordered. EDMS EDMS 04/15 01:15 00:17 [facility] 01:15 01:15 [facility] david 01:57 01:12 Gottlieb ordered. david bm8 03:46 01:15 [facility] bm8
--- NOTE | 2024-04-15 00:17 | ER ---
Nurse's Notes [facility] Name: Bella Barron Age: 63 yrs Sex: Female : 1960 Arrival Date: 04/14/2024 Time: 22:00 Bed 5 Private MD: Diagnosis: Epigastric abdominal tenderness;Nausea;GI Bleed/ Gastrointestinal hemorrhage, unspecified-upper ;Liver transplant status-2021/ [facility];Acute kidney failure, unspecified-on Chronic;Anemia, unspecified;Elevated white blood cell count Presentation: 04/14 22:48 Chief complaint: Patient states: C/o abdominal pain with nausea x 2-3 days. No jb4 vomiting. Having black diarrhea stools. Coronavirus screen: Vaccine status: Patient reports receiving the 2nd dose of the covid vaccine. Ebola Screen: Patient negative for fever greater than or equal to 101.5 degrees Fahrenheit, and additional compatible Ebola Virus Disease symptoms. Initial Sepsis Screen: Does the patient meet any 2 criteria? No. Patient's initial sepsis screen is negative. Does the patient have a suspected source of infection? No. Patient's initial sepsis screen is negative. Risk Assessment: Do you want to hurt yourself or someone else? Patient reports no desire to harm self or others. Onset of symptoms was April 11, 2024. 22:48 Method Of Arrival: Wheelchair jb4 22:48 Acuity: OLEG 3 jb4 Historical: - Allergies: 22:52 ceftriaxone; jb4 22:52 Iodine; jb4 22:52 Ciprofloxacin; jb4 22:52 LACTASE; jb4 22:52 Promethazine; jb4 22:52 EGG DERIVED; jb4 - PMHx: 22:52 cirrhosis of liver; Crohn's Disease; hypotension; kidney disease; Liver transplant (Jul); trach removed Jun 2022; - PSHx: 22:52 bowel resection; Colectomy; Cholecystectomy; left shoulder replacement; liver jb4 transplant; - Immunization history:: Adult Immunizations up to date. - Infectious Disease History:: Denies. - Social history:: Smoking status: unknown. Screenin:38 [facility] ED Fall Risk Assessment (Adult) History of falling in the last 3 months, bm8 including since admission No falls in past 3 months (0 pts) Confusion or Disorientation No (0 pts) Intoxicated or Sedated No (0 pts) Impaired Gait No (0 pts) Mobility Assist Device Used No (0 pt) Altered Elimination No (0 pt) Score/Fall Risk Level 0 - 2 = Low Risk Oriented to surroundings, Maintained a safe environment, Educated pt \T\ family on fall prevention, incl call for assistance when getting out of bed, Provided non-skid footwear, Hourly rounding (assess needs \T\ fall precautionary measures) done, Used ambulatory aids as needed (educated on \T\ assisted with), Used gait belt as appropriate. Abuse screen: Denies threats or abuse. Nutritional screening: No deficits noted. Tuberculosis screening: No symptoms or risk factors identified. Assessment: 23:38 General: Appears in no apparent distress. uncomfortable, Behavior is calm, cooperative, bm8 appropriate for age. Pain: Complains of pain in right lower quadrant and left lower quadrant Pain currently is 10 out of 10 on a pain scale. Quality of pain is described as burning. Neuro: Level of Consciousness is awake, alert, obeys commands, Oriented to person, place, time, situation, Appropriate for age. Cardiovascular: Denies chest pain, Capillary refill < 3 seconds Patient's skin is warm and dry. Respiratory: Airway is patent Respiratory effort is even, unlabored, Respiratory pattern is regular, symmetrical, Breath sounds are clear. GI: Abdomen is flat, non-distended, Last BM at 20:00. Bowel sounds present X 4 quads. hyperactive in right lower quadrant and left lower quadrant Abdomen is tender to palpation in right upper quadrant, right lower quadrant and abdomen diffusely Reports lower abdominal pain, diarrhea, nausea, Pain is 10 out of 10 on a pain scale. : No signs and/or symptoms were reported regarding the genitourinary system. EENT: No signs and/or symptoms were reported regarding the EENT system. Derm: No signs and/or symptoms reported regarding the dermatologic system. Musculoskeletal: Range of motion: limited in left shoulder Reports pain in left arm. 04/15 00:14 Reassessment: pt to CT. bm8 01:22 Reassessment: No changes from previously documented assessment. Patient and/or family bm8 updated on plan of care and expected duration. Pain level reassessed. Patient is alert, oriented x 3, equal unlabored respirations, skin warm/dry/pink. 03:09 Reassessment: No changes from previously documented assessment. Patient and/or family bm8 updated on plan of care and expected duration. Pain level reassessed. Patient is alert, oriented x 3, equal unlabored respirations, skin warm/dry/pink. pt report continued abd pain. Vital Signs: 04/14 22:48 BP 113 / 71; Pulse 112; Resp 18; Temp 97; Pulse Ox 100% ; Weight 70.31 kg; Height 4 ft. jb4 11 in. ; Pain 10/10; 23:38 BP 100 / 68; Pulse 103; Resp 17; Temp 97; Pulse Ox 97% ; Pain 10/10; bm8 04/15 01:22 BP 102 / 67; Pulse 99; Resp 18; Temp 97; Pulse Ox 98% ; Pain 10/10; bm8 03:09 BP 105 / 66; Pulse 99; Resp 17; Temp 97; Pulse Ox 99% ; Pain 8/10; bm8 04/14 22:48 Body Mass Index 31.31 (70.31 kg, 149.86 cm) jb4 04/14 22:48 Pain Scale: Adult jb4 23:38 Pain Scale: Adult bm8 04/15 01:22 Pain Scale: Adult bm8 03:09 Pain Scale: Adult bm8 [place] Coma Score: 04/14 23:38 Eye Response: spontaneous(4). Motor Response: obeys commands(6). Verbal Response: bm8 oriented(5). Total: 15. 04/15 01:22 Eye Response: spontaneous(4). Motor Response: obeys commands(6). Verbal Response: bm8 oriented(5). Total: 15. 03:09 Eye Response: spontaneous(4). Motor Response: obeys commands(6). Verbal Response: bm8 oriented(5). Total: 15. ED Course: 04/14 22:02 Patient arrived in ED. mr 22:51 Triage completed. jb4 23:07 James Rossi MD is Attending Physician. david 23:38 Domenic Dawson, AMARILIS is Primary Nurse. bm8 23:38 Patient has correct armband on for positive identification. Call light in reach. Side bm8 rails up X 1. Client placed on continuous cardiac and pulse oximetry monitoring. NIBP monitoring applied. Pulse ox on. NIBP on. Door closed. Noise minimized. Warm blanket given. Pillow given. Verbal reassurance given. Head of bed lowered. 23:38 No provider procedures requiring assistance completed. bm8 23:50 EKG done, by ED staff, reviewed by James Rossi MD. pc2 23:59 XRAY Chest (1 view) In Process Unspecified. EDMS 09/04 00:13 Inserted saline lock: 18 gauge in right antecubital area, using aseptic technique. bm8 ,using aseptic technique. ultrasound guided Blood collected. Flushed with 10 mL NS. 00:18 CT Abd/Pelvis - Without Contrast In Process Unspecified. EDMS 01:21 Initiated transfer with Eda at [facility]. rv1 01:37 Eda with [facility] called to decline transfer due to capacity. rv1 01:42 Initiated transfer with Kaylah at [facility]. rv1 02:[address] Doc [address] Doc with Dr. Duong. rv1 02:[address] Duong to [facility] Rm 1122. rv1 03:11 Missed attempt(s): 20 gauge in right upper arm. Bleeding controlled, band aid applied, bm8 catheter tip intact. 03:43 Inserted saline lock: 18 gauge in left EJ, using aseptic technique. ,using aseptic bm8 technique. by provider Patient transferred, IV remains in place. 03:44 Provided Education on: need for transfer. bm8 03:46 Arm band placed on right wrist. bm8 Administered Medications: 01:09 Discontinued: ns 0.9% 1000 ml IV at 125 ml/hr continuous david 00:12 Drug: NS 0.9% IV 1000 ml IV at 125 ml/hr continuous Route: IV; Rate: 125 ml/hr; Site: bm8 right antecubital; 01:29 Follow up: Response: No adverse reaction; IV Status: Order to discontinue infusion; IV bm8 Intake: 250ml 00:13 Drug: Pantoprazole IVP 40 mg IVP once Route: IVP; Site: right antecubital; bm8 01:29 Follow up: Response: No adverse reaction bm8 00:13 Drug: NS 0.9% IV 500 ml IV at bolus once Route: IV; Rate: bolus; Site: right bm8 antecubital; 00:45 Follow up: Response: No adverse reaction; IV Status: Completed infusion; IV Intake: bm8 500ml 00:44 Drug: Pantoprazole IVP 40 mg IVP once Route: IVP; Site: right antecubital; bm8 01:29 Follow up: Response: No adverse reaction bm8 00:44 Drug: Pantoprazole IV 8 mg/hr IV at 25 ml/hr continuous; (Standard dilution is 80 mg in bm8 250 mL NS) Route: IV; Rate: 25 ml/hr; Site: right antecubital; 03:44 Follow up: Response: No adverse reaction; IV Status: Infusion continued upon transfer bm8 01:57 Drug: Piperacillin-Tazobactam IVPB 2.25 grams IVPB once over 60 mins; (mix in NS 100 bm8 mL) Route: IVPB; Infused Over: 60 mins; Site: right antecubital; 02:08 Follow up: Response: No adverse reaction; IV Status: Completed infusion; IV Intake: bm8 100ml 02:09 Drug: morphine IVP or IV 4 mg IVP once over 4 mins Route: IVP; Infused Over: 4 mins; bm8 Site: right antecubital; 02:10 Follow up: Response: No adverse reaction bm8 03:08 Drug: morphine IVP or IV 4 mg IVP once over 4 mins Route: IVP; Infused Over: 4 mins; bm8 Site: right antecubital; 03:44 Follow up: Response: No adverse reaction bm8 Medication: 04/14 23:38 VIS not applicable for this client. bm8 Intake: 0904 00:45 IV: 500ml; Total: 500ml. bm8 01:29 IV: 250ml; Total: 750ml. bm8 02:08 IV: 100ml; Total: 850ml. bm8 Outcome: 00:17 ER care complete, transfer ordered by MD. hernandez 03:44 Transferred by ground EMS to [facility], Transfer form completed. bm8 X-rays sent w/ patient. 03:44 Condition: stable 03:44 Instructed on the need for transfer, Demonstrated understanding of instructions, follow-up care, medications, 03:46 Patient left the ED. bm8 Signatures: Dispatcher [employer] EDJames Lubin MD MD cha Rivera, Mary, Reg Reg mr Leon Lowery, RN RN jb4 Britany Pascual rv1 Domenic Dawson, RN RN bm8 Trinity Anguiano, RN RN pc2
[2024-04-15] MEDS ORDERED: PANTOPRAZOLE 40 MG INJ ONE (00:31)
[2024-04-15] MEDS ORDERED: NA CHLORIDE 0.9% 250 ML ONE (00:31)
[2024-04-15 00:40] LABS: Absolute Lymphocytes (CBC) 0.9 K/uL (0.7-4.9); Absolute Monocytes 0.9 K/uL (0.1-1.3); Absolute Neutrophil 15.6 K/uL (1.8-8.0); Basophils % 0.1 % (0-1.3); Eosinophils % 0.1 % (0-4.4); Hematocrit 25.6 % (36.0-45.0); Hemoglobin 8.1 g/dL (12.0-15.0); Lymphocytes % 5.4 % (15.3-44.8); MCH 29.8 pg (27.0-35.0); MCHC 31.5 g/dL (32.0-36.0); MCV 94.6 fL (80-100); MPV 8.5 fL (7.6-11.3); Monocytes % 5.3 % (3.3-12.3); Neutrophils % 89.1 % (41.7-73.7); Platelets 159 thou/uL (152-406); RBC Red Blood Cell Count 2.71 M/uL (3.86-4.86); Red Cell Distribution Width 17.3 % (12.1-15.2)
[2024-04-15 00:41] LABS: PT Prothrombin Time 12.9 SECONDS (9.4-12.5); Protime INR 1.16
[2024-04-15 00:54] LABS: Albumin 2.6 g/dL (3.4-5.0); Albumin/Globulin Ratio 0.8 (1.1-1.8); Alkaline Phosphatase 62 U/L (45-117); Anion Gap 13.5 mEq/L (5.0-15.0); BUN Blood Urea Nitrogen 80 mg/dL (7-18); Bicarbonate 12 mEq/L (21-32); Bilirubin Total 0.5 mg/dL (0.2-1.0); Globulin 3.3 g/dL (2.3-3.5); Glomerular Filtration Rate 25 ml/min (=/>90); Glucose Level 103 mg/dL (74-106); Lipase 15 U/L (13-75); Magnesium 1.9 mg/dL (1.6-2.4); NT PRO-BNP 1464 pg/mL (<125); Potassium 4.5 mEq/L (3.5-5.1); Protein, Total 5.9 g/dL (6.4-8.2); Sodium Level 141 mEq/L (136-145); Troponin High Sensitivity 18.2 pg/mL (<58.9)
[2024-04-15 00:56] LABS: ALT/SGPT < 14 U/L (13-56); AST/SGOT < 10 U/L (15-37)
[2024-04-15 00:57] LABS: Bilirubin Direct < 0.2 mg/dL (0-0.2); Bilirubin Indirect, Calculated 0.3 mg/dL (0.2-0.8)
[2024-04-15] MEDS ORDERED: NA CHLORIDE 0.9% 100 ML ONE (01:34)
[2024-04-15] MEDS ORDERED: PIPERACIL/TAZO 2.25 GM VIAL IV ONE (01:34)
[2024-04-15 01:41] LABS: Specific Gravity 1.019 (1.005-1.030); Sqamous Epithelial <5 /HPF (None Seen); Urine Bacteria 20-50 /HPF (<20); Urine Bilirubin NEGATIVE (Negative); Urine Blood 1+ (Negative); Urine Clarity Extremely Turbid (Clear); Urine Color Light-Yellow (Yellow); Urine Culture Reflex Order NOT NEEDED; Urine Glucose NEGATIVE (Negative); Urine Ketones NEGATIVE (Negative); Urine Microscopic Reflex YN ORDER UMIC; Urine Mucus Slight /HPF (None Seen); Urine Nitrite NEGATIVE (Negative); Urine Protein 1+ (Negative); Urine RBC None Seen /HPF (None Seen); Urine Urobilinogen Normal (Normal); Urine WBC <5 /HPF (<5)
[2024-04-15 01:59] LABS: Differential Total Cells Count 100; Lymphocytes 4 % (15-42); Monocytes 10 % (0-10); Segmented Neutrophils 86 % (40-80)
[2024-04-15 02:00] LABS: Blood Morphology Comment NOT SEEN (NOT SEEN); Platelet Estimate ADEQ
[2024-04-15] MEDS ORDERED: MORPHINE 4 MG/ML SYR ONE ×2 (02:02→03:02)
[2024-04-15 02:57] LABS: Arterial Blood Carboxyhemoglob 1.9 % (0-1.5); Blood Gas Oxyhemoglobin 94.6 % (94-97); Blood Gas THB 7.1 g/dl (12-18); Blood O2 Saturation 98.5 % (92-98.5)
[2024-04-15 03:50] VITALS: TEMP 97
[2024-04-15 03:54] VITALS: BP 105/66; O2SAT 99
--- NOTE | 2024-04-15 12:07 | EKG ---
Test Date: 2024-04-14 Test Time: 23:49:30 Host/Hostess Head: LUPE MEASUREMENT RESULTS: Intervals: Rate: 99 OK: 148 QRSD: 116 QT: 364 QTc: 467 [place]: P: 57 OK: 148 QRS: 21 T: 33 INTERPRETIVE STATEMENTS: Normal sinus rhythm Possible Left atrial enlargement Right bundle branch block Possible Lateral infarct, age undetermined Possible Inferior infarct, age undetermined Abnormal ECG Compared to ECG 11/26/2023 23:05:19 No significant changes Electronically Signed On 04-15-24 12:06:02 CDT by Rudy Pandya
--- NOTE | 2024-04-15 15:47 | RAD REPORT ---
EXAM DESCRIPTION: CT Abdomen and Pelvis Without Intravenous Contrast CLINICAL HISTORY: ABD pain. TECHNIQUE: Axial computed tomography images of the abdomen and pelvis without intravenous contrast. Sagittal and coronal reformatted images were created and reviewed. This CT exam was performed usi ng one or more of the following dose reduction techniques: automated exposure control, adjustment o f the mA and/or kV according to patient size, and/or use of iterative reconstruction technique. COMPARISON: CT Abdomen Pelvis 06/23/2023. FINDINGS: Lung bases: Unremarkable. No mass. No consolidation. ABDOMEN: Liver: Unremarkable. Gallbladder and bile ducts: There has been a cholecystectomy. No ductal dilation. Pancreas: Unremarkable. No ductal dilation. Spleen: Unremarkable. No splenomegaly. Adrenals: Unremarkable. No mass. Kidneys and ureters: Small right renal calculus. Focal left renal cortical calcification. No hydron ephrosis. Stomach and bowel: Ileocolic anastomosis. Small and large bowel air-fluid levels. No obstruction. N o appreciable mucosal thickening. PELVIS: Appendix: The appendix is not definitively visualized. No findings to suggest acute appendicitis. Bladder: Unremarkable. No stones. Reproductive: Unremarkable as visualized. ABDOMEN and PELVIS: Intraperitoneal space: Unremarkable. No free air. No significant fluid collection. Bones/joints: Degenerative changes most pronounced, predominantly at L2-L3. No acute fracture. No dislocation. Soft tissues: Prior ventral hernia repair. Vasculature: Mild atherosclerotic disease. No abdominal aortic aneurysm. Lymph nodes: Unremarkable. No enlarged lymph nodes. IMPRESSION: 1. Nonspecific small and large bowel air-fluid levels which can be seen in the clinica l setting of diarrhea. 2. Other findings as above. Electronically signed by: Hayley Bernstein MD 04/15/2024 01:39 AM CDT Due to temporary technical issues with the PACS/Fluency reporting system, reports are being signed by the in house radiologist without review as a courtesy to ensure prompt reporting. The interpreting r adiologist is fully responsible for the content of the report.
--- NOTE | 2024-04-15 15:47 | RAD REPORT ---
EXAM DESCRIPTION: Chest Single View CLINICAL HISTORY: ABDOMINAL DISTENTION COMPARISON: CT Chest abdomen pelvis, 03/12/2023 FINDINGS: Cardiac silhouette is within normal limits. There is no focal parenchymal or pleural disea se. There is no acute osseous process visualized. IMPRESSION: No evidence of acute cardiopulmonary disease. Electronically signed by: Brayan Sharma MD 04/15/2024 01:13 AM CDT RP Due to temporary technical issues with the PACS/Fluency reporting system, reports are being signed by the in house radiologist without review as a courtesy to ensure prompt reporting. The interpreting r adiologist is fully responsible for the content of the report.
== END 2024-04-15 03:46 | disposition short-term general hospital (02) ==
LOC: ER 22:00
DX: R10.816 Epigastric abdominal tenderness (principal); R11.0 Nausea; K92.2 Gastrointestinal hemorrhage, unspecified; D64.9 Anemia, unspecified; N17.9 Acute kidney failure, unspecified; N18.9 Chronic kidney disease, unspecified; Z94.4 Liver transplant status; D72.829 Elevated white blood cell count, unspecified
CPT/HCPCS: 96365; 96361; 93005; 87040 ×2; 85025; 81001; 80048; 36415; 82140; 86900; 83735; 86850; 85610; 86901; 80076; 83605; 84484; 83690; 83880; 74176; 71045; 82805; 96375; 99285; 96366; 36600; 36569; J2543; J2470 ×2; J7050; J7040; J7030

== ENCOUNTER 2024-05-25 16:36 | Emergency (ER) | payer OTHER ==
[2024-05-25] MEDS ORDERED: NA CHLORIDE 0.9% 1,000 ML ONE (17:04)
[2024-05-25] MEDS ORDERED: ONDANSETRON 4 MG/2 ML VIAL ONE (17:04)
[2024-05-25] MEDS ORDERED: KETOROLAC 30 MG/ML INJ ONE (17:04)
[2024-05-25 17:30] LABS: Absolute Lymphocytes (CBC) 0.5 K/uL (0.7-4.9); Absolute Monocytes 0.2 K/uL (0.1-1.3); Absolute Neutrophil 6.4 K/uL (1.8-8.0); Basophils % 0.3 % (0-1.3); Eosinophils % 0.2 % (0-4.4); Hematocrit 34.2 % (36.0-45.0); Hemoglobin 11.1 g/dL (12.0-15.0); Lymphocytes % 6.7 % (15.3-44.8); MCH 28.7 pg (27.0-35.0); MCHC 32.5 g/dL (32.0-36.0); MCV 88.4 fL (80-100); MPV 8.1 fL (7.6-11.3); Monocytes % 2.4 % (3.3-12.3); Neutrophils % 90.4 % (41.7-73.7); Nucleated Red Blood Cells % 0.1 % (0-0); Platelets 186 thou/uL (152-406); RBC Red Blood Cell Count 3.87 M/uL (3.86-4.86); Red Cell Distribution Width 16.8 % (12.1-15.2)
[2024-05-25 17:47] LABS: Albumin 2.6 g/dL (3.4-5.0); Albumin/Globulin Ratio 0.8 (1.1-1.8); Anion Gap 4.7 mEq/L (5.0-15.0); Bilirubin Total 0.4 mg/dL (0.2-1.0); Globulin 3.3 g/dL (2.3-3.5); Potassium 4.7 mEq/L (3.5-5.1); Protein, Total 5.9 g/dL (6.4-8.2)
--- NOTE | 2024-05-25 18:07 | RAD REPORT ---
EXAMINATION: XR LEFT SHOULDER CLINICAL INDICATION: Female, 63 years old. PAIN TECHNIQUE: Internal and external AP view radiograph of the left shoulder were obtained. COMPARISON: 01/16/2024. FINDINGS: Reverse shoulder arthroplasty in place. Periosteal reaction of the level of the metaphysis, just distal to the base of the humeral stem component. No evidence of arthropathy or other focal bone lesion. Soft tissues are unremarkable. IMPRESSION: Ton periosteal reaction at the level of the humeral metaphysis, which may relate to a periprosthetic fracture versus incomplete healing.
--- NOTE | 2024-05-25 18:08 | RAD REPORT ---
EXAMINATION: UPPER EXTREMITY VENOUS UNILATE CLINICAL INDICATION: Female, 63 years old. [facility] MAIN Pain;Swelling Bed Name: 14 TECHNIQUE: Complete venous duplex sonography of the left upper extremity was performed. The examinati on included compression for vein patency, color Doppler imaging and flow augmentation in response to distal compression of the internal jugular, brachiocephalic, subclavian, axillary, brachial, radia l, ulnar, cephalic and basilic veins. COMPARISON: 05/03/2024 FINDINGS: Duplex sonography testing of the veins of the left upper extremity is completed. Color flow imaging s hows all veins to be compressible with appropriate color filling. Pulsatile and phasic flow is present within the upper extremity deep and superficial veins examined. IMPRESSION: There is no deep vein or superficial vein thrombosis.
[2024-05-25] MEDS ORDERED: MORPHINE 2 MG/ML SYR ONE ×2 (18:45→19:39)
--- NOTE | 2024-05-25 19:20 | RAD REPORT ---
EXAMINATION: Abdomen Pelvis Wo Contrast CLINICAL INDICATION: Female, 63 years old. ABD PAIN TECHNIQUE: CT abdomen and pelvis was performed, without IV contrast, as per department protocol. Axia l, sagittal and coronal reconstructions were obtained. One or more of the following dose reduction techniques were used: Automated exposure control, adjustment of the mA and kV according to the patien t size, and iterative reconstruction. Unless otherwise specified, incidental findings do not require dedicated imaging follow-up. COMPARISON: 04/15/2024. FINDINGS: The lack of intravenous contrast limits the sensitivity of this exam for evaluation of solid visceral organs, vascular structures, and retroperitoneum. LOWER CHEST: Mild layering right effusion. No focal airspace opacities . LIVER: Normal in size and contour. No focal lesion. BILIARY SYSTEM: Status post cholecystectomy. Other surgical clips in the alejandro hepatis and portacaval region. SPLEEN: Stable mild splenomegaly. No focal lesion. PANCREAS: No mass, ductal dilation, or yokasta-pancreatic fluid. ADRENALS: Normal; no mass. Right adrenal gland was possibly surgically removed. KIDNEYS AND URETERS: Atrophic bilaterally. No hydronephrosis. Stable exophytic right superior pole 1. 9 cm cyst. 3 mm right interpolar calculus, nonobstructing URINARY BLADDER: Decompressed limiting evaluation. GASTROINTESTINAL TRACT: Postsurgical changes with ileocolic anastomosis. No evidence of bowel obstruc tion, significant free fluid, free air or abscess. APPENDIX: Appendix not visualized, but no inflammatory changes in region of appendix. LYMPH NODES: No lymphadenopathy. MUSCULOSKELETAL: No acute or suspicious osseous abnormality. ADDITIONAL FINDINGS: Lobulated soft tissue density structures in the presacral region measuring 2.5 x 2.4 cm, stable, could relate to extramedullary hematopoiesis. IMPRESSION: Stable mild splenomegaly. Interval development of small right pleural effusion. No other acute or concerning abnormalities in the abdomen or pelvis, with evaluation limited by lack of IV contrast.
--- NOTE | 2024-05-25 19:28 | ER ---
Nurse's Notes [facility] Name: Bella Barron Age: 63 yrs Sex: Female : 1960 Arrival Date: 05/25/2024 Time: 16:36 Bed 14 Private MD: Diagnosis: Pain in left shoulder;Upper abdominal pain, unspecified Presentation: 05/25 16:53 Chief complaint: Patient states: I broke my left arm a couple of months ago and they tm6 did a shoulder surgery. Since then my arm has been hurting and is swollen. Yesterday I started to have n/v. Coronavirus screen: Client denies travel out of the [place] in the last 14 days. Ebola Screen: Patient negative for fever greater than or equal to 101.5 degrees Fahrenheit, and additional compatible Ebola Virus Disease symptoms Patient denies exposure to infectious person. Patient denies travel to an Ebola-affected area in the 21 days before illness onset. No symptoms or risks identified at this time. Initial Sepsis Screen: Does the patient meet any 2 criteria? HR > 90 bpm. Does the patient have a suspected source of infection? No. Patient's initial sepsis screen is negative. Risk Assessment: Do you want to hurt yourself or someone else? Patient reports no desire to harm self or others. Onset of symptoms was May 24, 2024. 16:53 Method Of Arrival: Ambulatory tm6 16:53 Acuity: OLEG 3 tm6 Triage Assessment: 16:54 General: Appears in no apparent distress. uncomfortable, Behavior is calm, cooperative. tm6 Pain: Complains of pain in left arm Pain currently is 10 out of 10 on a pain scale. Pain began a couple of months ago. EENT: No signs and/or symptoms were reported regarding the EENT system. Neuro: Level of Consciousness is awake, alert, obeys commands, Oriented to person, place, time, situation. Cardiovascular: Patient's skin is warm and dry. Cardiovascular: Edema is 3+ to left forearm, left wrist, left hand and left fingers. Respiratory: Airway is patent Respiratory effort is even, unlabored, Respiratory pattern is regular, symmetrical. GI: Abdomen is round non-distended, Reports nausea, vomiting, since yesterday. : No signs and/or symptoms were reported regarding the genitourinary system. Derm: No signs and/or symptoms reported regarding the dermatologic system. Musculoskeletal: Swelling present in left arm Reports pain in left arm since a couple of months ago. Pain is 10 out of 10 on a pain scale. Historical: - Allergies: 16:54 ceftriaxone; tm6 16:54 Ciprofloxacin; tm6 16:54 Egg Derived; tm6 16:54 Iodine; tm6 16:54 LACTASE; tm6 16:54 Promethazine; tm6 - PMHx: 16:54 cirrhosis of liver; Crohn's Disease; hypotension; kidney disease; Liver transplant (Jul); trach removed Jun 2022; - PSHx: 16:54 bowel resection; Cholecystectomy; Colectomy; left shoulder replacement; liver transplant; - Immunization history:: Client reports receiving the 2nd dose of the Covid vaccine. - Infectious Disease History:: Denies. - Social history:: Smoking status: Patient reports the use of cigarette tobacco products, smokes one pack cigarettes per day. Patient/guardian denies using alcohol. Screenin:23 [facility] ED Fall Risk Assessment (Adult) History of falling in the last 3 months, kc6 including since admission No falls in past 3 months (0 pts) Confusion or Disorientation No (0 pts) Intoxicated or Sedated No (0 pts) Impaired Gait Yes (1 pt) Mobility Assist Device Used Yes (1 pt) Altered Elimination No (0 pt) Score/Fall Risk Level 0 - 2 = Low Risk Oriented to surroundings. Abuse screen: Denies threats or abuse. Denies injuries from another. Nutritional screening: No deficits noted. Tuberculosis screening: No symptoms or risk factors identified. Assessment: 17:24 General: Appears in no apparent distress. uncomfortable, well groomed, well developed, kc6 Behavior is calm, cooperative, appropriate for age. Pain: Complains of pain in anterior aspect of left shoulder and left upper quadrant and right upper quadrant. Neuro: Level of Consciousness is awake, alert, obeys commands, Oriented to person, place, time, situation, Appropriate for age. Cardiovascular: Capillary refill < 3 seconds. Respiratory: Airway is patent Trachea midline Respiratory effort is even, unlabored, Respiratory pattern is regular, symmetrical. GI: Abdomen is round non-distended, Bowel sounds present X 4 quads. Abd is soft X 4 quads Abdomen is tender to palpation in right upper quadrant and left upper quadrant Reports upper abdominal pain, nausea, vomiting, Patient currently denies diarrhea. : No signs and/or symptoms were reported regarding the genitourinary system. EENT: No signs and/or symptoms were reported regarding the EENT system. Derm: No signs and/or symptoms reported regarding the dermatologic system. Skin is intact, is healthy with good turgor, Skin is pink, warm \T\ dry. Musculoskeletal: No signs and/or symptoms reported regarding the musculoskeletal system. Capillary refill < 3 seconds, Range of motion: limited in left shoulder Swelling present in anterior aspect of left shoulder and left hand and left forearm. 18:40 Reassessment: Patient appears in no apparent distress at this time. No changes from [facility] previously documented assessment. Patient and/or family updated on plan of care and expected duration. Pain level reassessed. Patient is alert, oriented x 3, equal unlabored respirations, skin warm/dry/pink. Vital Signs: 16:53 BP 115 / 68; Pulse 109; Resp 19; Temp 98.9(O); Pulse Ox 96% on R/A; MAP 82 mmHg; Weight tm6 70.31 kg; Height 4 ft. 11 in. ; Pain 10/10; 18:45 BP 129 / 89; Pulse 82; Resp 16 S; Pulse Ox 100% on R/A; Pain 10/10; kc6 19:00 BP 132 / 87; Pulse 84; Resp 17; Pulse Ox 100% ; me1 16:53 Body Mass Index 31.31 (70.31 kg, 149.86 cm) tm6 16:53 Pain Scale: Adult tm6 18:45 Pain Scale: Adult kc ED Course: 16:39 Patient arrived in ED. im 16:47 Ramandeep Mcdonough FNP-C is PHCP. kb 16:47 Beau Encarnacion MD is Attending Physician. kb 16:54 Triage completed. tm6 16:54 Nicolle Meneses, AMARILIS is Primary Nurse. kc 16:54 Arm band placed on right wrist. tm6 17:23 Patient has correct armband on for positive identification. Bed in low position. Call [facility] light in reach. Side rails up X2. Adult w/ patient. Pulse ox on. NIBP on. Door closed. Noise minimized. Lights dimmed. Pillow given. 17:23 Inserted saline lock: 22 gauge in right antecubital area, using aseptic technique. kc6 Blood collected. Flushed with 10 mL NS. Patient maintains SpO2 saturation greater than 95% on room air. 17:41 Shoulder Left (2 View) XRAY In Process Unspecified. EDMS 17:53 UPPER EXTREMITY VENOUS UNILATE In Process Unspecified. EDMS 18:40 Abdomen In Process Unspecified. EDMS 18:45 Patient requests pain medication. kc6 18:53 Report given to Deborah Payne RN. kc6 19:00 Provided Education on: POC. Verbalized understanding.. me1 19:54 IV discontinued, intact, bleeding controlled, No redness/swelling at site. Pressure me1 dressing applied. 19:55 No provider procedures requiring assistance completed. me1 Administered Medications: 17:23 Drug: TORadol - Ketorolac IVP 15 mg IVP once Route: IVP; Site: right antecubital; kc6 18:40 Follow up: Response: No adverse reaction [facility] 17:23 Drug: Ondansetron IVP 4 mg IVP once; over 2 minutes Route: IVP; Site: right antecubital;kc6 18:41 Follow up: Response: No adverse reaction [facility] 17:23 Drug: NS 0.9% IV 1000 ml IV at 1 bolus Per protocol; to be given as a bolus over 60 kc6 minutes Route: IV; Rate: 1 bolus; Site: right antecubital; 19:36 Follow up: Response: No adverse reaction; IV Status: Completed infusion; IV Intake: me1 1000ml 18:51 Drug: morphine IVP or IV 2 mg IVP once over 4 mins Route: IVP; Infused Over: 4 mins; kc6 Site: left antecubital; 19:36 Follow up: Response: No adverse reaction; Pain is decreased me1 19:46 Not Given (IV is not patentt): morphineor iv 2 mg IVP once over 4 mins me1 19:54 Drug: HYDROcodone-acetaminophen PO 5 mg-325 mg 1 tabs PO once Route: PO; me1 19:56 Follow up: Response: No adverse reaction; Pain is decreased me1 Medication: 19:55 VIS not applicable for this client. me1 Intake: 19:36 IV: 1000ml; Total: 1000ml. me1 Outcome: 19:28 Discharge ordered by MD. mackya 19:54 Discharged to home ambulatory, with significant other, me1 19:54 Condition: stable 19:54 Discharge instructions given to patient, significant other, Instructed on discharge instructions, follow up and referral plans. medication usage, Demonstrated understanding of instructions, follow-up care, medications, Prescriptions given X 1, 19:55 Patient left the ED. me1 Signatures: Dispatcher [employer] EDRamandeep Valenzuela, CROWN ATTACHER-C CROWN ATTACHER-Nicolle Crain RN RN kc6 Apple Mistry Michelle, RN RN me1 Shahida Melgoza RN RN tm6
--- NOTE | 2024-05-25 19:29 | EDPHYS ---
Physician Documentation [facility] Name: Bella Barron Age: 63 yrs Sex: Female : 1960 Arrival Date: 05/25/2024 Time: 16:36 Bed 14 Private MD: ED Physician Beau Encarnacion HPI: 05/25 17:19 This 63 yrs old Female presents to ER via Ambulatory with complaints of Fever, kb Vomiting, Shoulder Pain - left, Arm Pain - Left. 17:19 Pt is a 63 year old female who presents for left shoulder pain that has been ongoing kb since she had a replacement about 8 weeks ago as well as swelling. Pt also reports nausea, upper abd pain and decreased appetite for 2 days. Denies fever, vomiting, diarrhea. Historical: - Allergies: 16:54 ceftriaxone; tm6 16:54 Ciprofloxacin; tm6 16:54 Egg Derived; tm6 16:54 Iodine; tm6 16:54 LACTASE; tm6 16:54 Promethazine; tm6 - PMHx: 16:54 cirrhosis of liver; Crohn's Disease; hypotension; kidney disease; Liver transplant (Jul); trach removed Jun 2022; - PSHx: 16:54 bowel resection; Cholecystectomy; Colectomy; left shoulder replacement; liver transplant; - Immunization history:: Client reports receiving the 2nd dose of the Covid vaccine. - Infectious Disease History:: Denies. - Social history:: Smoking status: Patient reports the use of cigarette tobacco products, smokes one pack cigarettes per day. Patient/guardian denies using alcohol. ROS: 17:18 Constitutional: As per HPI kb Exam: 17:18 Constitutional: This is a well developed, well nourished patient who is awake, alert, kb and in no acute distress. Head/Face: Normocephalic, atraumatic. ENT: Moist Mucous membranes Cardiovascular: Regular rate Respiratory: Respirations even and unlabored. No increased work of breathing. Talking in full sentences Back: No spinal tenderness. No costovertebral tenderness. Full range of motion. Skin: Warm, dry with normal turgor. Normal color. Neuro: Awake and alert, GCS 15, oriented to person, place, time, and situation. Moves all extremities. Normal gait. 17:18 Abdomen/GI: Inspection: abdomen appears normal, Bowel sounds: normal, Palpation: soft, in all quadrants, mild abdominal tenderness, in the right upper quadrant and left upper quadrant, 17:18 Musculoskeletal/extremity: Extremities: grossly normal except: noted in the anterior aspect of left shoulder: pain, tenderness, noted in the left arm: swelling, ROM: limited active range of motion due to pain, Circulation is intact in all extremities. Sensation intact. Vital Signs: 16:53 BP 115 / 68; Pulse 109; Resp 19; Temp 98.9(O); Pulse Ox 96% on R/A; MAP 82 mmHg; Weight tm6 70.31 kg; Height 4 ft. 11 in. ; Pain 10/10; 18:45 BP 129 / 89; Pulse 82; Resp 16 S; Pulse Ox 100% on R/A; Pain 10/10; kc6 19:00 BP 132 / 87; Pulse 84; Resp 17; Pulse Ox 100% ; me1 16:53 Body Mass Index 31.31 (70.31 kg, 149.86 cm) tm6 16:53 Pain Scale: Adult tm6 18:45 Pain Scale: Adult kc6 MDM: 16:47 Medical Screening Exam initiated kb 17:19 Data reviewed: vital signs, nurses notes. kb 19:26 Differential diagnosis: dvt, dehydration, gastroenteritis, postop pain. Historians kb other than the Patient: Spouse/Significant Other: . Counseling: I had a detailed discussion with the patient and/or guardian regarding the historical points, exam findings, and any diagnostic results supporting the discharge/admit diagnosis, lab results, radiology results, the need for outpatient follow up, a family practitioner, a orthopedic surgeon, to return to the emergency department if symptoms worsen or persist or if there are any questions or concerns that arise at home. ED course: Pt denies injury or trauma since surgery. States pain has been getting worse since starting PT. 05/25 17:00 Order name: CBC with Diff kb 05/25 17:00 Order name: CMP; Complete Time: 17:51 kb 05/25 17:00 Order name: Lipase; Complete Time: 17:51 kb 05/25 17:00 Order name: Shoulder Left (2 View) XRAY; Complete Time: 18:08 kb 05/25 17:06 Order name: UPPER EXTREMITY VENOUS UNILATE; Complete Time: 18:09 EDMS 05/25 18:40 Order name: Abdomen ; Complete Time: 19:21 EDMS 05/25 17:00 Order name: IV Saline Lock; Complete Time: 17:23 kb 05/25 17:00 Order name: Labs collected and sent; Complete Time: 17:23 kb 05/25 19:22 Order name: Sling; Complete Time: 19:37 kb Administered Medications: 17:23 Drug: TORadol - Ketorolac IVP 15 mg IVP once Route: IVP; Site: right antecubital; kc6 18:40 Follow up: Response: No adverse reaction kc6 17:23 Drug: Ondansetron IVP 4 mg IVP once; over 2 minutes Route: IVP; Site: right antecubital;kc6 18:41 Follow up: Response: No adverse reaction kc6 17:23 Drug: NS 0.9% IV 1000 ml IV at 1 bolus Per protocol; to be given as a bolus over 60 kc6 minutes Route: IV; Rate: 1 bolus; Site: right antecubital; 19:36 Follow up: Response: No adverse reaction; IV Status: Completed infusion; IV Intake: me1 1000ml 18:51 Drug: morphine IVP or IV 2 mg IVP once over 4 mins Route: IVP; Infused Over: 4 mins; kc6 Site: left antecubital; 19:36 Follow up: Response: No adverse reaction; Pain is decreased me1 19:46 Not Given (IV is not patentt): morphineor iv 2 mg IVP once over 4 mins me1 19:54 Drug: HYDROcodone-acetaminophen PO 5 mg-325 mg 1 tabs PO once Route: PO; me1 19:56 Follow up: Response: No adverse reaction; Pain is decreased me1 Disposition Summary: 05/25/24 19:28 Discharge Ordered Notes: Location: Home kb Condition: Stable kb Diagnosis - Pain in left shoulder kb - Upper abdominal pain, unspecified kb Followup: kb - With: Emergency Department - When: As needed - Reason: Worsening of condition Followup: kb - With: Private Physician - When: 2 - 3 days - Reason: Recheck today's complaints, Continuance of care, Re-evaluation by your physician Discharge Instructions: - Discharge Summary Sheet kb - Shoulder Pain, [id number] kb - Abdominal Pain, Adult, [id number] kb Forms: - Medication Reconciliation Form kb - Antibiotic Education kb - Prescription Opioid Use kb - Patient Portal Instructions kb - Leadership Thank You Letter kb Prescriptions: - Zofran 4 mg Oral tablet - take 1 tablet ORAL route every 6 hours As needed; 12 tablet; Refills: 0, kb Product Selection Permitted Signatures: Dispatcher [employer] EDMS Ramandeep Mcdonough, MACHINE BILLER-Zoe MACHINE BILLER-Nicolle Crain, RN RN kc6 Deborah Payne RN RN me1 Shahida Melgoza RN RN tm6 Corrections: (The following items were deleted from the chart) 17:01 17:00 Shoulder Left 2 View+RAD.RAD.BRZ ordered. EDMS EDMS 17:01 17:01 Extremity Venous Uni Ltd+US.RAD.BRZ ordered. EDMS EDMS 18:40 17:58 Abdomen Pelvis W Con+CT.RAD.BRZ ordered. EDMS EDMS
[2024-05-25] MEDS ORDERED: HYDROCODONE/APAP 5/325 MG TAB ONE (19:48)
[2024-05-25 21:51] LABS: Blood Morphology Comment NOT SEEN (NOT SEEN); Platelet Estimate ADEQ; White Blood Cell Scan OK (OK)
[2024-05-25 23:11] VITALS: TEMP 98.9
[2024-05-25 23:12] VITALS: O2SAT 100
[2024-05-25 23:14] VITALS: BP 132/87
== END 2024-05-25 19:55 | disposition home or self-care (01) ==
LOC: ER 16:36
DX: M25.512 Pain in left shoulder (principal); R10.12 Left upper quadrant pain; R10.11 Right upper quadrant pain; R11.0 Nausea; N28.9 Disorder of kidney and ureter, unspecified; Z94.4 Liver transplant status
CPT/HCPCS: 85025; 36415; 83690; 80053; 74176; 73030; 93971; J2270; J2405; J7030

== ENCOUNTER 2024-06-15 09:16 | Emergency (ER) | payer OTHER ==
--- NOTE | 2024-06-15 10:40 | RAD REPORT ---
EXAM: CT brain without contrast HISTORY: TRAUMA COMPARISON: 01/16/2024 TECHNIQUE: Multiple contiguous axial images were obtained and a CT of the brain without contrast. Sag ittal and coronal reformats were performed. FINDINGS: No evidence of hydrocephalus, intracranial hemorrhage, or extra-axial fluid collection. The brain is normal in morphology. The calvarium is intact. Stable right maxillary sinus mucus retention cyst. New opacification through out the left mastoid air cells. IMPRESSION: No evidence of acute intracranial abnormality. New left mastoid effusion. EXAM: CT of the cervical spine without contrast HISTORY: TRAUMA COMPARISON: 01/16/2024 TECHNIQUE: Multiple contiguous axial images were obtained in a CT of the cervical spine without contr ast. Sagittal and coronal reformats were performed. FINDINGS: The vertebral bodies demonstrate normal height and alignment. No evidence of acute fracture or subluxation.. Scattered degenerative changes with multilevel mild neural foraminal narrowing most notably at C3-4 through C5-6, due to uncovertebral joint and facet spurring. No prevertebral so ft tissue swelling is seen. The posterior facets are well aligned. Normal alignment of the skull base with the cervical spine is seen. The lung apices are unremarkable. IMPRESSION: No evidence of acute osseous abnormality of the cervical spine. Stable degenerative changes as above.
--- NOTE | 2024-06-15 10:59 | RAD REPORT ---
EXAM: CT CHEST, ABDOMEN AND PELVIS WITHOUT CONTRAST CLINICAL INDICATION: Female, 63 years old. [facility] MAIN PAIN Bed Name: 14 TECHNIQUE: CT chest, abdomen and pelvis was performed, without IV contrast, as per department protoco l. Axial, sagittal and coronal reconstructions were obtained. One or more of the following dose reduction techniques were used: Automated exposure control, adjustment of the mA and/or kV according to the patient size, and/or iterative reconstruction. Unless otherwise specified, incidental findings do not require dedicated imaging follow-up. COMPARISON: 03/12/2023 FINDINGS: The lack of intravenous contrast limits the sensitivity of this exam for evaluation of solid visceral organs, vascular structures, and retroperitoneum. Chest: LOWER NECK/CHEST WALL: Visualized thyroid gland and soft tissues are normal. LUNGS AND AIRWAYS: Airways are clear. No evidence of airspace or interstitial process. No nodules. PLEURA: Trace right pleural effusion. No pneumothorax. Hemidiaphragms are normally positioned. MEDIASTINUM AND LYMPH NODES: No mediastinal mass or fluid collection. Normal size mediastinal, hilar, and axillary lymph nodes. THORACIC AORTA: Normal caliber and configuration. PULMONARY ARTERIES: Normal caliber. HEART: Unremarkable. Abdomen/Pelvis LIVER: Normal in size and contour. No focal lesion. GALLBLADDER/BILE DUCTS: Status post cholecystectomy. Surgical clips again seen surrounding the IVC. PANCREAS: No mass, ductal dilation, or yokasta-pancreatic fluid. SPLEEN: Normal size. No focal lesion. ADRENALS: Normal; no mass. KIDNEYS AND URETERS: 2-3 mm interpolar nonobstructing calculus on the right. 4 mm radiodense focus at the left lower pole, may represent a small nonobstructing calculus as well versus parenchymal calcification. Both are stable. Bilateral parenchymal atrophic changes. No hydronephrosis. GASTROINTESTINAL TRACT: Stomach is non-dilated. Small bowel has normal course and caliber. Mild ascen ding colonic wall thickening. Postsurgical changes at the cecum may relate to prior cholecystectomy. No abnormal collections or ascites. PERITONEUM: No free fluid. LYMPH NODES: No lymphadenopathy. ABDOMINAL AORTA AND OTHER VESSELS: Normal caliber aorta and IVC. URINARY BLADDER: Normal contour. REPRODUCTIVE ORGANS: No pathologic process. MUSCULOSKELETAL: No acute or suspicious osseous abnormality. ADDITIONAL FINDINGS: Lobulated soft tissue density structures in the presacral space measuring up to 3.3 x 2.1 cm. This is nonspecific, and may relate to inclusion cysts or focal fibrotic changes. IMPRESSION: Segmental apparent colonic wall thickening along the ascending colon, may relate to segmental colitis . Other stable findings as above, including bilateral renal small calcifications, suggestive of nonobst ructing calculi. Trace right pleural effusion.
[2024-06-15] MEDS ORDERED: MORPHINE 2 MG/ML SYR ONE ×2 (11:27→17:48)
[2024-06-15] MEDS ORDERED: NA CHLORIDE 0.9% 1,000 ML ONE (11:28)
[2024-06-15 12:02] LABS: Absolute Basophils 0.1 K/uL (0-0.5); Absolute Eosinophils 0.1 K/uL (0-0.5); Absolute Lymphocytes (CBC) 3.1 K/uL (0.7-4.9); Absolute Monocytes 0.9 K/uL (0.1-1.3); Basophils % 0.9 % (0-1.3); Eosinophils % 0.7 % (0-4.4); Hematocrit 34.9 % (36.0-45.0); Hemoglobin 11.1 g/dL (12.0-15.0); Lymphocytes % 20.3 % (15.3-44.8); MCH 28.3 pg (27.0-35.0); MCHC 31.8 g/dL (32.0-36.0); MCV 89.2 fL (80-100); MPV 8.3 fL (7.6-11.3); Neutrophils % 72.1 % (41.7-73.7); Platelets 239 thou/uL (152-406); RBC Red Blood Cell Count 3.92 M/uL (3.86-4.86)
[2024-06-15 12:04] LABS: Protime INR 0.98
[2024-06-15 12:21] LABS: Albumin 3.2 g/dL (3.4-5.0); Albumin/Globulin Ratio 0.9 (1.1-1.8); Anion Gap 8.7 mEq/L (5.0-15.0); Bilirubin Direct 0.2 mg/dL (0-0.2); Bilirubin Indirect, Calculated 0.3 mg/dL (0.2-0.8); Bilirubin Total 0.5 mg/dL (0.2-1.0); Globulin 3.4 g/dL (2.3-3.5); Magnesium 1.4 mg/dL (1.6-2.4); Potassium 3.7 mEq/L (3.5-5.1); Protein, Total 6.6 g/dL (6.4-8.2); Troponin High Sensitivity 34.1 pg/mL (<58.9)
--- NOTE | 2024-06-15 12:57 | RAD REPORT ---
EXAMINATION: ONE VIEW CHEST XR CLINICAL INDICATION: Female, 63 years old.,COUGH TECHNIQUE: Frontal chest projection is submitted. Examination is limited by patient positioning and t echnique. COMPARISON: 04/14/2024 FINDINGS: The lungs are well inflated and clear. No pneumothorax or sizable effusion. The heart is normal in s ize. Mediastinal contours are unremarkable. Left reverse shoulder arthroplasty in place IMPRESSION: No acute intrathoracic abnormalities.
--- NOTE | 2024-06-15 12:59 | RAD REPORT ---
EXAMINATION: XR LEFT HUMERUS HISTORY: PAIN TECHNIQUE: Multiple views of the left humerus were obtained. COMPARISON: None FINDINGS: Left reverse shoulder arthroplasty in place. Heterotopic ossification with periosteal react ion noted along the proximal humerus, favoring changes of recent healing/incorporation. Moderate AC joint degenerative changes. Alignment is satisfactory.
--- NOTE | 2024-06-15 12:59 | RAD REPORT ---
EXAMINATION: XR FOREARM CLINICAL INDICATION: Female, 63 years old. [facility] MAIN PAIN Bed Name: 14 TECHNIQUE: 2 view radiograph of the left forearm were obtained. . COMPARISON: No prior exam. FINDINGS: No evidence of fracture or dislocation. Normal alignment. Mild diffuse osteopenia. No evide nce of arthropathy or other focal bone lesion. Soft tissues are unremarkable. IMPRESSION: Mild diffuse osteopenia. No other acute or significant abnormalities.
--- NOTE | 2024-06-15 13:00 | RAD REPORT ---
EXAMINATION: XR Elbow Left 3 View CLINICAL INDICATION: Female, 63 years old. PAIN TECHNIQUE: 3 view radiographs of the left elbow were obtained. COMPARISON: No prior exam. FINDINGS: No evidence of fracture or dislocation. Normal alignment. Questionable mild joint effusion. No evidence of arthropathy. No suspicious focal bone lesion. Soft tissue prominence along the proximal forearm and distal elbow. IMPRESSION: Questionable mild joint effusion. Soft tissue swelling as above. No evidence of acute osseous abnorma lity.
--- NOTE | 2024-06-15 14:43 | EDPHYS ---
Physician Documentation [facility] Name: Bella Barron Age: 63 yrs Sex: Female : 1960 Arrival Date: 06/15/2024 Time: 09:16 Bed 14 Private MD: SARAH Physician James Rossi HPI: 06/15 09:23 This 63 yrs old Female presents to ER via EMS with complaints of Arm Pain, david Fall Injury. 09:23 The patient or guardian complains of contusion, decreased range of motion, pain. left david shoulder. Context: The problem was sustained at home. Onset: The symptoms/episode began/occurred this morning, today. Modifying factors: the symptoms are alleviated by nothing. The symptoms are aggravated by lifting weight, movement. Associated signs and symptoms: The patient has no apparent associated signs or symptoms. The complaints affect the anterior aspect of left shoulder, left bicep, dorsal aspect of left forearm, posterior aspect of left shoulder, left tricep and palmar aspect of left forearm. Context: The problem was sustained at home. Historical: - Allergies: 09:28 ceftriaxone; 09:28 Ciprofloxacin; 09:28 Egg Derived; 09:28 Iodine; 09:28 LACTASE; 09:28 Promethazine; jl - PMHx: 09:28 cirrhosis of liver; Crohn's Disease; hypotension; kidney disease; Liver transplant (Jul); trach removed Jun 2022; - PSHx: 09:28 bowel resection; Cholecystectomy; Colectomy; left shoulder replacement; liver transplant; - Immunization history:: Adult Immunizations. - Infectious Disease History:: Denies. - Social history:: Smoking status: Patient reports the use of cigarette tobacco products, smokes one pack cigarettes per day. - Family history:: not pertinent. ROS: 09:23 Constitutional: Negative for fever, chills, and weight loss, Eyes: Negative for injury, david pain, redness, and discharge, ENT: Negative for injury, pain, and discharge, Neck: Negative for injury, pain, and swelling, Cardiovascular: Negative for chest pain, palpitations, and edema, Respiratory: Negative for shortness of breath, cough, wheezing, and pleuritic chest pain, Abdomen/GI: Negative for abdominal pain, nausea, vomiting, diarrhea, and constipation, Back: Negative for injury and pain, : Negative for injury, bleeding, discharge, and swelling, Skin: Negative for injury, rash, and discoloration, Neuro: Negative for headache, weakness, numbness, tingling, and seizure, Psych: Negative for depression, anxiety, suicide ideation, homicidal ideation, and hallucinations, Allergy/Immunology: Negative for hives, rash, and allergies, Endocrine: Negative for neck swelling, polydipsia, polyuria, polyphagia, and marked weight changes, Hematologic/Lymphatic: Negative for swollen nodes, abnormal bleeding, and unusual bruising, 09:23 MS/extremity: Positive for injury or acute deformity, decreased range of motion, pain, swelling, tenderness, of the left arm, Exam: :23 Hand exam: Exam is positive for decreased range of motion, fracture, pain, tenderness, david ROM: limited active range of motion due to pain, limited passive range of motion due to pain, Circulation is intact in all extremities. sensation intact. Compartment Syndrome exam of affected extremity: is normal. 09:23 Constitutional: This is a well developed, well nourished patient who is awake, alert, and in no acute distress. Head/Face: Normocephalic, atraumatic. Eyes: Pupils equal round and reactive to light, extra-ocular motions intact. Lids and lashes normal. Conjunctiva and sclera are non-icteric and not injected. Cornea within normal limits. Periorbital areas with no swelling, redness, or edema. ENT: Nares patent. No nasal discharge, no septal abnormalities noted. Tympanic membranes are normal and external auditory canals are clear. Oropharynx with no redness, swelling, or masses, exudates, or evidence of obstruction, uvula midline. Mucous membranes moist. Neck: Trachea midline, no thyromegaly or masses palpated, and no cervical lymphadenopathy. Supple, full range of motion without nuchal rigidity, or vertebral point tenderness. No Meningismus. Chest/axilla: Normal chest wall appearance and motion. Nontender with no deformity. No lesions are appreciated. Cardiovascular: Regular rate and rhythm with a normal S1 and S2. No gallops, murmurs, or rubs. Normal PMI, no JVD. No pulse deficits. Respiratory: Lungs have equal breath sounds bilaterally, clear to auscultation and percussion. No rales, rhonchi or wheezes noted. No increased work of breathing, no retractions or nasal flaring. Abdomen/GI: Soft, non-tender, with normal bowel sounds. No distension or tympany. No guarding or rebound. No evidence of tenderness throughout. Back: No spinal tenderness. No costovertebral tenderness. Full range of motion. Female : Normal external genitalia. Neuro: Awake and alert, GCS 15, oriented to person, place, time, and situation. Cranial nerves II-XII grossly intact. Motor strength 5/5 in all extremities. Sensory grossly intact. Cerebellar exam normal. Normal gait. Psych: Awake, alert, with orientation to person, place and time. Behavior, mood, and affect are within normal limits. 09:23 Musculoskeletal/extremity: ROM: limited active range of motion due to pain, limited passive range of motion due to pain, in the left arm, Pulses: noted to be 4+ in the bilateral radial, brachial, femoral, popliteal, posterior tibial and and dorsalis pedis arteries., Sensation intact. Compartment Syndrome exam of affected extremity: is normal. Weight bearing: able to fully bear weight, 09:23 Skin: Appearance: Temperature: normal temperature, Moisture: normal moisture, petechiae, not noted, ecchymosis, noted on the, left arm, diaphoresis is not appreciated, 14:43 ECG was reviewed by the Attending Physician. david Vital Signs: 09:25 BP 147 / 69; Pulse 84; Resp 15; Temp 98.2; Pulse Ox 100% ; Weight 64.86 kg; Pain 10/10; jl7 12:13 BP 142 / 70; Pulse 85; Resp 14; Pulse Ox 100% ; jl7 12:20 Pain 2/10; me1 13:00 BP 132 / 70; Pulse 88; Resp 21; Pulse Ox 100% ; me1 14:00 BP 123 / 74; Pulse 86; Resp 19; Pulse Ox 100% ; me1 15:00 BP 119 / 74; Pulse 84; Resp 21; Pulse Ox 100% ; me1 16:00 BP 109 / 53; Pulse 84; Resp 20; Pulse Ox 100% ; me1 17:00 BP 109 / 55; Pulse 84; Resp 18; Pulse Ox 100% ; me1 17:45 BP 112 / 85; Pulse 89; Resp 21; Temp 98.3; Pulse Ox 100% ; me1 09:25 Pain Scale: Adult jl7 12:20 Pain Scale: Adult me1 Yojana Coma Score: 09:25 Eye Response: spontaneous(4). Motor Response: obeys commands(6). Verbal Response: jl7 oriented(5). Total: 15. Trauma Score (Adult): 09:25 Eye Response: spontaneous(1); Verbal Response: oriented(1); Motor Response: obeys jl7 commands(2); Systolic BP: > 89 mm Hg(4); Respiratory Rate: 10 to 29 per min(4); Yojana Score: 15; Trauma Score: 12 MDM: 09:20 Medical Screening Exam initiated david 09:32 Differential diagnosis: Anterior dislocation with fracture, Anterior dislocation david without fracture, Posterior dislocation with fracture, Posterior dislocation without fracture, humeral head fracture, glenoid fracture, tendonitis, closed fracture. Data reviewed: vital signs, nurses notes, lab test result(s), EKG, radiologic studies, CT scan, plain films. Consideration of Admission/Observation Escalation of care including admission/observation considered. I considered the following discharge prescriptions or medication management in the emergency department Medications were administered in the Emergency Department. See MAR. Independent interpretation of the following test(s) in the Emergency Department EKG: See my EKG interpretation above. Test considered but Not performed: CT: no ct shoulder. Care significantly affected by the following chronic conditions: Hypertension, Obesity, Chronic Kidney Disease, Liver Disease, crohns, liver and kidney transplant. Counseling: I had a detailed discussion with the patient and/or guardian regarding the historical points, exam findings, and any diagnostic results supporting the discharge/admit diagnosis, lab results, radiology results. 06/15 09:22 Order name: Basic Metabolic Panel; Complete Time: 14:31 [facility] 06/15 09:22 Order name: CBC with Diff; Complete Time: 12:09 [facility] 06/15 09:22 Order name: LFT's; Complete Time: 14:31 [facility] 06/15 09:22 Order name: Magnesium; Complete Time: 14:31 [facility] 06/15 09:22 Order name: NT PRO-BNP; Complete Time: 14:31 [facility] 06/15 09:22 Order name: PT-INR; Complete Time: 12:09 [facility] 06/15 09:22 Order name: Troponin HS; Complete Time: 14:31 [facility] 06/15 09:22 Order name: Urinalysis w/ reflexes; Complete Time: 15:45 [facility] 06/15 09:22 Order name: XRAY Chest (1 view); Complete Time: 14:31 [facility] 06/15 09:22 Order name: CT Head C Spine; Complete Time: 11:07 [facility] 06/15 09:22 Order name: CT Chest Abdomen Pelvis W/O Contrast; Complete Time: 11:07 [facility] 06/15 09:22 Order name: Humerus Left XRAY; Complete Time: 14:31 [facility] 06/15 09:22 Order name: Elbow Left 3 View XRAY; Complete Time: 14:31 [facility] 06/15 09:22 Order name: Forearm Left XRAY; Complete Time: 14:31 [facility] 06/15 09:22 Order name: EKG; Complete Time: 09:23 [facility] 06/15 09:22 Order name: Cardiac monitoring; Complete Time: 09:29 [facility] 06/15 09:22 Order name: EKG - Nurse/Tech; Complete Time: 10:58 [facility] 06/15 09:22 Order name: IV Saline Lock; Complete Time: 12:05 [facility] 06/15 09:22 Order name: Labs collected and sent; Complete Time: 12:05 [facility] 06/15 09:22 Order name: O2 Per Protocol; Complete Time: 09:29 [facility] 06/15 09:22 Order name: O2 Sat Monitoring; Complete Time: 09:29 [facility] EC:43 Rate is 86 beats/min. Rhythm is regular. QRS [place] is Normal. [place] interval is normal. QRS david interval is normal. QT interval is normal. No Q waves. T waves are Normal. No ST changes noted. Clinical impression: NSR w/ Non-specific ST/T Changes and No evidence of ischemia. Interpreted by me. Reviewed by me. Administered Medications: 11:50 Drug: NS 0.9% IV 1000 ml IV at 125 ml/hr continuous Route: IV; Rate: 125 ml/hr; Site: jl7 right antecubital; 17:07 Follow up: IV Status: [place] [facility] Drug: morphine IVP or IV 2 mg IVP once over 4 mins Route: IVP; Infused Over: 4 mins; jl7 Site: right antecubital; 12:20 Follow up: Pain 2/10 Adult; Response: No adverse reaction; Pain is decreased [facility]:55 Drug: morphine IVP or IV 2 mg IVP once over 4 mins Route: IVP; Infused Over: 4 mins; me1 Site: right antecubital; 17:55 Follow up: Response: No adverse reaction; Pain is decreased me1 Disposition Summary: 06/15/24 14:42 Transfer Ordered Notes: Reason: Higher level of care david Condition: Fair david Problem: new david Symptoms: have improved david Transfer Location: [facility](06/15/24 15:17) david Accepting Physician: to [facility](06/15/24 17:57) me1 Diagnosis - Fall on same level, unspecified david - Weakness david - Diarrhea, unspecified david - Unspecified kidney failure david - Hypomagnesemia david - Liver transplant status david - Kidney transplant status david - Crohn's disease, unspecified, without complications - diarrhea david - UTI/ Urinary tract infection, site not specified david - Pleural effusion in other conditions classified elsewhere - RIGHT SMALL david Forms: - Medication Reconciliation Form david - SBAR form david Signatures: Dispatcher [employer] EDMS James Rossi MD MD cha Leal, Jahala RN RN jl7 Deborah Payne RN RN me1 Corrections: (The following items were deleted from the chart) 09:23 09:23 Head C Spine MPR Wo Con+CT.RAD.BRZ ordered. EDMS EDMS 09:23 09:23 Chest Abdomen Pelvis Wo Con+CT.RAD.BRZ ordered. EDMS EDMS 09:23 09:23 Humerus Left+RAD.RAD.BRZ ordered. EDMS EDMS 09:23 09:23 Elbow Left 3 View+RAD.RAD.BRZ ordered. EDMS EDMS 09:23 09:23 Forearm Left+RAD.RAD.BRZ ordered. EDMS EDMS 14:43 14:42 to slh david david 15:17 14:42 [facility] david david 15:17 14:43 to sl david david 15:45 15:17 to [facility] david david 15:49 15:45 to [facility] david david 17:57 15:49 to [facility] david me1
--- NOTE | 2024-06-15 14:43 | ER ---
Nurse's Notes [facility] Name: Bella Braron Age: 63 yrs Sex: Female : 1960 Arrival Date: 06/15/2024 Time: 09:16 Bed 14 Private MD: Diagnosis: Fall on same level, unspecified;Weakness;Diarrhea, unspecified;Unspecified kidney failure;Hypomagnesemia;Liver transplant status;Kidney transplant status;Crohn's disease, unspecified, without complications-diarrhea;UTI/ Urinary tract infection, site not specified;Pleural effusion in other conditions classified elsewhere-RIGHT SMALL Presentation: 06/15 09:25 Chief complaint: EMS states: Toned out for mechanical fall from standing, reports left jl7 arm pain, recent left shoulder replacement. Bruising and abrasions noted. Care prior to arrival: None. Mechanism of Injury: Fall from standing position. Trauma event details: Injury occurred: at home. 09:25 Acuity: OLEG 3 jl7 09:25 Method Of Arrival: EMS: [facility] jl7 09:28 Coronavirus screen: At this time, the client does not indicate any symptoms associated jl7 with coronavirus-19. Ebola Screen: No symptoms or risks identified at this time. Initial Sepsis Screen: Does the patient meet any 2 criteria? No. Patient's initial sepsis screen is negative. Does the patient have a suspected source of infection? No. Patient's initial sepsis screen is negative. Risk Assessment: Do you want to hurt yourself or someone else? Patient reports no desire to harm self or others. Onset of symptoms was June 15, 2024. Trauma Activation: Not Applicable Physician: ED Physician; Name: ; Notified At: ; Arrived At: Physician: General Surgeon; Name: ; Notified At: ; Arrived At: Physician: Radiology; Name: ; Notified At: ; Arrived At: Physician: Respiratory; Name: ; Notified At: ; Arrived At: Physician: Lab; Name: ; Notified At: ; Arrived At: Historical: - Allergies: 09:28 ceftriaxone; jl7 09:28 Ciprofloxacin; jl7 09:28 Egg Derived; jl7 09:28 Iodine; 7 09:28 LACTASE; jl7 09:28 Promethazine; jl7 - PMHx: 09:28 cirrhosis of liver; Crohn's Disease; hypotension; kidney disease; Liver transplant (Jul); trach removed Jun 2022; - PSHx: 09:28 bowel resection; Cholecystectomy; Colectomy; left shoulder replacement; liver jl7 transplant; - Immunization history:: Adult Immunizations. - Infectious Disease History:: Denies. - Social history:: Smoking status: Patient reports the use of cigarette tobacco products, smokes one pack cigarettes per day. - Family history:: not pertinent. Screenin:00 [facility] ED Fall Risk Assessment (Adult) History of falling in the last 3 months, jl7 including since admission Yes- fall prone (multiple falls) (3 pts) Confusion or Disorientation No (0 pts) Intoxicated or Sedated No (0 pts) Impaired Gait Yes (1 pt) Mobility Assist Device Used Yes (1 pt) Altered Elimination Yes (1 pt) Score/Fall Risk Level 3 or more points = High Risk Oriented to surroundings, Maintained a safe environment, Provided non-skid footwear, Hourly rounding (assess needs \T\ fall precautionary measures) done, Remained with patient while ambulating. 10:00 Abuse screen: Denies threats or abuse. Denies injuries from another. Nutritional jl7 screening: No deficits noted. Tuberculosis screening: No symptoms or risk factors identified. Primary Survey: 09:25 NO uncontrolled hemorrhage observed. A: The client is awake and alert. The airway is jl7 patent. Breathing/Chest: Spontaneous respiratory effort, equal unlabored respirations, breath sounds clear bilaterally, regular pattern, symmetrical chest rise and fall. Circulation: No external hemorrhage present. Regular and strong central pulse, skin warm/dry/normal color. Disability Client is alert. Exposure/Environment: All clothing and personal items were removed. Forensic evidence collection is not deemed to be indicated at this time. Items placed in patient belonging bag. There is no evidence of uncontrolled external bleeding. Obvious injury(ies) are noted at this time: abrasions, bruising noted to left arm and bruising to LLQ A warming method has been applied: A warm blanket has been provided to the patient. Assessment: 09:20 General: Appears in no apparent distress. uncomfortable, unkempt, Behavior is jl7 cooperative, anxious. Pain: Complains of pain in left arm and posterior aspect of left shoulder and anterior aspect of left shoulder Pain currently is 10 out of 10 on a pain scale. Neuro: Level of Consciousness is awake, alert, obeys commands, Oriented to person, place, time. Cardiovascular: Patient's skin is warm and dry. Rhythm is. Respiratory: Airway is patent Respiratory effort is even, unlabored, Respiratory pattern is regular, symmetrical. Derm: Skin abrasions to left arm Skin is dry, Skin temperature is warm Bruising that is dark purple. Vital Signs: 09:25 BP 147 / 69; Pulse 84; Resp 15; Temp 98.2; Pulse Ox 100% ; Weight 64.86 kg; Pain 10/10; jl7 12:13 BP 142 / 70; Pulse 85; Resp 14; Pulse Ox 100% ; jl7 12:20 Pain 2/10; me1 13:00 BP 132 / 70; Pulse 88; Resp 21; Pulse Ox 100% ; me1 14:00 BP 123 / 74; Pulse 86; Resp 19; Pulse Ox 100% ; me1 15:00 BP 119 / 74; Pulse 84; Resp 21; Pulse Ox 100% ; me1 16:00 BP 109 / 53; Pulse 84; Resp 20; Pulse Ox 100% ; me1 17:00 BP 109 / 55; Pulse 84; Resp 18; Pulse Ox 100% ; me1 17:45 BP 112 / 85; Pulse 89; Resp 21; Temp 98.3; Pulse Ox 100% ; me1 09:25 Pain Scale: Adult jl7 12:20 Pain Scale: Adult me1 [place] Coma Score: 09:25 Eye Response: spontaneous(4). Motor Response: obeys commands(6). Verbal Response: jl7 oriented(5). Total: 15. Trauma Score (Adult): 09:25 Eye Response: spontaneous(1); Verbal Response: oriented(1); Motor Response: obeys jl7 commands(2); Systolic BP: > 89 mm Hg(4); Respiratory Rate: 10 to 29 per min(4); Yojana Score: 15; Trauma Score: 12 ED Course: 09:20 Patient arrived in ED. bd 09:20 James Rossi MD is Attending Physician. david 09:24 Nupur Brady RN is Primary Nurse. jl7 09:26 Triage completed. jl7 09:27 pt brother, Jerry called to leave his phone number, will pickling drum operator when she is bd discharged from ER. [phone]. 09:41 CT Head C Spine In Process Unspecified. EDMS 09:41 CT Chest Abdomen Pelvis W/O Contrast In Process Unspecified. EDMS 10:00 Patient has correct armband on for positive identification. Placed in gown. Bed in low jl7 position. Call light in reach. Side rails up X2. Provided Education on: use of call rosa. Client placed on continuous cardiac and pulse oximetry monitoring. NIBP monitoring applied. Warm blanket given. 10:58 XRAY Chest (1 view) In Process Unspecified. EDMS 10:58 Humerus Left XRAY In Process Unspecified. EDMS 10:58 EKG done, by ED staff, reviewed by James Rossi MD. zm 10:59 Elbow Left 3 View XRAY In Process Unspecified. EDMS 10:59 Forearm Left XRAY In Process Unspecified. EDMS 11:20 Assisted to bathroom. Cleaned of incontinence. Linen changed. jl7 11:30 Initial lab(s) drawn, by nv, sent to lab. Inserted saline lock: 22 gauge in right 7 antecubital area, using aseptic technique. Blood collected. Flushed with 10 mL NS. 12:05 Arm band placed on Patient placed in an exam room. me1 12:19 Primary Nurse role handed off by Nupur Brady RN jl7 14:22 Deborah Payne, AMARILIS is Primary Nurse. me1 14:58 initiated transfer to [facility], was told to try to send pt to [facility], as she had bd her transplant at the main campus. initiated transfer to [facility]. 14:58 Urine collected: clean catch specimen, cloudy. me1 15:20 No provider procedures requiring assistance completed. me1 16:30 pt accepted in transfer to [place] [id number] Rios admin approval given bd by Antonette. 17:03 Patient transferred, IV remains in place. me1 Administered Medications: 11:50 Drug: NS 0.9% IV 1000 ml IV at 125 ml/hr continuous Route: IV; Rate: 125 ml/hr; Site: [facility] right antecubital; 17:07 Follow up: IV Status: Infusion continued upon transfer me1 11:50 Drug: morphine IVP or IV 2 mg IVP once over 4 mins Route: IVP; Infused Over: 4 mins; jl7 Site: right antecubital; 12:20 Follow up: Pain 2/10 Adult; Response: No adverse reaction; Pain is decreased me1 17:55 Drug: morphine IVP or IV 2 mg IVP once over 4 mins Route: IVP; Infused Over: 4 mins; me1 Site: right antecubital; 17:55 Follow up: Response: No adverse reaction; Pain is decreased me1 Medication: 12:13 VIS not applicable for this client. jl7 Outcome: 14:42 ER care complete, transfer ordered by . david 17:03 Transferred by ground EMS to [facility], Transfer form completed. Note: me1 intensive care unit nurse. Report called to AMARILIS Sams 17:03 Condition: stable 17:03 Instructed on the need for transfer, 17:57 Patient left the ED. me1 Signatures: Dispatcher [employer] EDMS Jada Jha Corey, MD MD cha Leal, Jahala, RN RN jl7 Suzie Uribe Michelle, RN RN me1 Corrections: (The following items were deleted from the chart) 14:25 09:25 Chief complaint: EMS states: Toned out for mechanical fall from standing, reports me1 left arm pain, recent left shoulder replacement. Bruising and abrasions noted. jl7 15:21 09:25 Chief complaint: EMS states: Toned out for mechanical fall from standing, reports me1 left arm pain, recent left shoulder replacement. Bruising and abrasions noted. me1
[2024-06-15 15:28] LABS: Specific Gravity 1.014 (1.005-1.030); Sqamous Epithelial <5 /HPF (None Seen); Urine Bacteria <20 /HPF (<20); Urine Bilirubin NEGATIVE (Negative); Urine Blood Negative (Negative); Urine Clarity Turbid (Clear); Urine Color Light-Yellow (Yellow); Urine Culture Reflex Order NOT NEEDED; Urine Glucose NEGATIVE (Negative); Urine Ketones NEGATIVE (Negative); Urine Microscopic Reflex YN ORDER UMIC; Urine Mucus Slight /HPF (None Seen); Urine Nitrite NEGATIVE (Negative); Urine Protein NEGATIVE (Negative); Urine RBC <5 /HPF (None Seen); Urine Urobilinogen Normal (Normal); Urine WBC <5 /HPF (<5); Urine Yeast (Budding) Trace /HPF (None Seen)
[2024-06-15 18:05] VITALS: O2SAT 100
[2024-06-15 18:26] VITALS: BP 112/85; TEMP 98.3
--- NOTE | 2024-06-16 12:21 | EKG ---
Test Date: 2024-06-15 Test Time: 10:48:34 Research Geologist: REZA MEASUREMENT RESULTS: Intervals: Rate: 86 DE: 152 QRSD: 112 QT: 378 QTc: 452 Cana: P: 60 DE: 152 QRS: 20 T: 35 INTERPRETIVE STATEMENTS: Normal sinus rhythm Right bundle branch block Cannot rule out Inferior infarct, age undetermined Abnormal ECG Compared to ECG 04/14/2024 23:49:30 No significant changes Electronically Signed On 06-16-24 12:17:26 LEAD TELLER by Rudy Pandya
== END 2024-06-15 17:57 | disposition short-term general hospital (02) ==
LOC: ER 09:16
DX: R53.1 Weakness (principal); W18.30XA Fall on same level, unspecified, initial encounter; N39.0 Urinary tract infection, site not specified; E83.42 Hypomagnesemia; K50.90 Crohn's disease, unspecified, without complications; J90 Pleural effusion, not elsewhere classified; N19 Unspecified kidney failure; Z94.0 Kidney transplant status; Z94.4 Liver transplant status; M25.522 Pain in left elbow; F17.210 Nicotine dependence, cigarettes, uncomplicated
CPT/HCPCS: 93005; 85025; 81001; 80048; 36415; 83735; 85610; 80076; 84484; 83880; 70450; 71250; 72125; 74176; 71045; 73080; 73090; 73060; J2270 ×2; J7030; 96361; 96374; 99285

== ENCOUNTER 2024-08-10 21:00 | Emergency (ER) | payer OTHER ==
--- NOTE | 2024-08-11 00:11 | RAD REPORT ---
EXAM DESCRIPTION: CT ABDOMEN PELVIS WITHOUT IV CONTRAST CLINICAL HISTORY: ABD PAIN COMPARISON: None Available TECHNIQUE: Contiguous axial images of the abdomen and pelvis were obtained without the administration of intrave nous contrast followed by reconstruction images. This exam was performed according to our departmental dose-optimization program, which includes automated exposure control, adjustment of the mA and/or kV according to patient size and/or use of iterative reconstruction technique. FINDINGS: Small bilateral pleural fluid collections. There is atherosclerosis. Surgical clips in the medial asp ect of the liver suggests prior liver transplant. Spleen measures approximately 11.3 cm. Small renal cyst, no further follow-up recommended. There are nonobstructive calcifications within both kid neys. There is evidence of prior anterior wall surgery/bowel surgery. Calcifications within the pelvis compatible with phleboliths. Appendix was not visualized. The liver, spleen, pancreas and kidneys are otherwise within normal limits. There is no hydronephrosi s. The gallbladder is absent. Adrenal glands are within normal limits. Aorta is of normal caliber and tapering. There is no free fluid in the abdomen or pelvis. There is no stranding of the mesenteri c fat to suggest an inflammatory response. There is no bowel obstruction. IMPRESSION: 1. No acute intra-abdominal abnormality. 2. Small bilateral pleural fluid collections. Electronically signed by: Brayan Sharma MD 08/11/2024 12:[address] [facility] Due to temporary technical issues with the PACS/Smart Voicemail reporting system, reports are being jac d by the in-house radiologist without review as a courtesy to ensure prompt reporting the interpreting radiologist is fully responsible for the content of the report. Transcribed Date/Time: 08/11/2024 12:11 AM
[2024-08-11] MEDS ORDERED: ONDANSETRON 4 MG/2 ML VIAL ONE (00:33)
[2024-08-11] MEDS ORDERED: MORPHINE 2 MG/ML SYR ONE (00:34)
[2024-08-11 00:39] LABS: PT Prothrombin Time 12.3 SECONDS (9.4-12.5); Protime INR 1.1
[2024-08-11 00:40] LABS: Absolute Lymphocytes (CBC) 0.5 K/uL (0.7-4.9); Absolute Monocytes 0.1 K/uL (0.1-1.3); Absolute Neutrophil 5.6 K/uL (1.8-8.0); Basophils % 0.2 % (0-1.3); Eosinophils % 0.2 % (0-4.4); Hematocrit 30.8 % (36.0-45.0); Hemoglobin 9.7 g/dL (12.0-15.0); Lymphocytes % 8.3 % (15.3-44.8); MCH 28.9 pg (27.0-35.0); MCHC 31.5 g/dL (32.0-36.0); Monocytes % 2.3 % (3.3-12.3); Platelets 157 thou/uL (152-406); RBC Red Blood Cell Count 3.35 M/uL (3.86-4.86); Red Cell Distribution Width 19.8 % (12.1-15.2)
[2024-08-11 00:52] LABS: Albumin 2.7 g/dL (3.4-5.0); Anion Gap 8.7 mEq/L (5.0-15.0); Bilirubin Total 0.5 mg/dL (0.2-1.0); Globulin 2.7 g/dL (2.3-3.5); Potassium 4.7 mEq/L (3.5-5.1); Protein, Total 5.4 g/dL (6.4-8.2); Troponin High Sensitivity 9.5 pg/mL (<58.9)
--- NOTE | 2024-08-11 01:10 | EDPHYS ---
Physician Documentation [facility] Name: Bella Barron Age: 64 yrs Sex: Female : 1960 Arrival Date: 08/10/2024 Time: 21:00 Bed 6 Private MD: SARAH Physician James Rossi HPI: 08/10 23:59 This 64 yrs old Female presents to ER via Wheelchair with complaints of dr5 Diarrhea. 23:59 The patient presents to the emergency department with diarrhea, 5-6 episodes daily for dr5 the past 2 weeks. Onset: The symptoms/episode began/occurred 2 week(s) ago. Possible causes: flare up of bowel problem, Crohn's disease. The symptoms are aggravated by food , The symptoms are alleviated by. Patient is a 64-year-old female with history of cirrhosis of liver, Crohn's disease, hypertension, kidney disease, liver transplant August 02 coming in for diarrhea for the past 2 weeks and generalized abdominal pain with dysuria. Patient denies fever. Patient reports that she was transferred to [facility] and was discharged about 2 weeks ago when this all started.. Historical: - Allergies: 21:12 ceftriaxone; cm10 21:12 Ciprofloxacin; cm10 21:12 Egg Derived; cm10 21:12 Iodine; cm10 21:12 LACTASE; cm10 21:12 Promethazine; cm10 - PMHx: 21:12 cirrhosis of liver; Crohn's Disease; hypotension; kidney disease; Liver transplant (Jul); trach removed Jun 2022; - PSHx: 21:12 bowel resection; Cholecystectomy; Colectomy; left shoulder replacement; liver cm10 transplant; - Immunization history:: Adult Immunizations unknown. - Infectious Disease History:: Denies. - Social history:: Smoking status: Patient reports the use of cigarette tobacco products, smokes one pack cigarettes per day. ROS: 23:59 Constitutional: as per hpi dr5 Exam: 23:59 Constitutional: This is a well developed, well nourished patient who is awake, alert, dr5 and in no acute distress. Head/Face: Normocephalic, atraumatic. Eyes: Pupils equal round and reactive to light, extra-ocular motions intact. Lids and lashes normal. Conjunctiva and sclera are non-icteric and not injected. Cornea within normal limits. Periorbital areas with no swelling, redness, or edema. Neck: Trachea midline, no thyromegaly or masses palpated, and no cervical lymphadenopathy. Supple, full range of motion without nuchal rigidity, or vertebral point tenderness. No Meningismus. Chest/axilla: Normal chest wall appearance and motion. Nontender with no deformity. No lesions are appreciated. Cardiovascular: Regular rate and rhythm with a normal S1 and S2. Normal PMI, no JVD. No pulse deficits. Respiratory: Lungs have equal breath sounds bilaterally, clear to auscultation. No rales, rhonchi or wheezes noted. No increased work of breathing, no retractions or nasal flaring. 23:59 Skin: Warm, dry with normal turgor. Normal color with no rashes, no lesions, and no evidence of cellulitis. Neuro: Awake and alert, GCS 15, oriented to person, place, time, and situation. Cranial nerves II-XII grossly intact. Motor strength 5/5 in all extremities. Sensory grossly intact. Cerebellar exam normal. Normal gait. 23:59 Abdomen/GI: Inspection: abdomen appears normal, Bowel sounds: Palpation: moderate abdominal tenderness, in all quadrants, 08/11 00:53 : Rectal exam: hemorrhoid(s), external, painful, are present, Beryl present. dr5 Vital Signs: 08/10 21:10 BP 161 / 99; Pulse 78; Resp 15; Temp 97.3(TE); Pulse Ox 100% on R/A; Weight 68.04 kg; cm10 Height 4 ft. 11 in. ; Pain 10/10; 08/11 00:28 BP 160 / 93; Pulse 65; Resp 19; Temp 97.3; Pulse Ox 100% ; Pain 7/10; bm8 01:26 Pulse 66; Resp 19; Temp 97.4; Pulse Ox 99% ; Pain 0/10; bm8 08/10 21:10 Body Mass Index 30.30 (68.04 kg, 149.86 cm) cm10 08/10 21:10 Pain Scale: Adult cm10 08/11 00:28 Pain Scale: Adult bm8 01:26 Pain Scale: Adult bm8 01:26 pt refused to allow last BP to be taken bm8 [place] Coma Score: 00:28 Eye Response: spontaneous(4). Motor Response: obeys commands(6). Verbal Response: bm8 oriented(5). Total: 15. 01:26 Eye Response: spontaneous(4). Motor Response: obeys commands(6). Verbal Response: bm8 oriented(5). Total: 15. MDM: 08/10 21:24 Medical Screening Exam initiated dr5 08/11 01:11 Differential diagnosis: diverticulitis, viral gastroenteritis, gastroenteritis. Data dr5 reviewed: vital signs, nurses notes. Care significantly affected by the following chronic conditions: Liver Transplant, Kidney Disease, Crohn's Disease. Care significantly affected by the following Social Determinants of Health: Poor access to healthcare and/or lack of insurance, Poor access to transportation, Problems related to employment. Counseling: I had a detailed discussion with the patient and/or guardian regarding the historical points, exam findings, and any diagnostic results supporting the discharge/admit diagnosis, the presence of at least one elevated blood pressure reading (>120/80) during this emergency department visit, lab results, the need for outpatient follow up, for definitive care, a family practitioner, a inspector screen printing, to return to the emergency department if symptoms worsen or persist or if there are any questions or concerns that arise at home. Medication response: morphine relieved the patient's pain. Symptoms have resolved. ED course: Patient's pain has resolved. No evidence of diverticulitis, colitis, or inflammatory process noted on CT abdomen pelvis. Lab work reviewed with patient. Negative troponin. Expected elevated proBNP. Recommended patient follow-up primary care doctor as needed and follow-up with [facility] Hospital[facility] team as needed. All questions answered. Patient is stable for discharge.. 08/10 21:42 Order name: CBC with Diff dr5 08/10 21:42 Order name: NT PRO-BNP; Complete Time: 00:54 dr5 08/10 21:42 Order name: PT-INR; Complete Time: 00:41 dr5 08/10 21:42 Order name: Troponin HS; Complete Time: 00:54 dr5 08/10 21:42 Order name: CMP; Complete Time: 00:54 dr5 08/10 23:02 Order name: AMMONIA; Complete Time: 00:54 al5 08/11 00:55 Order name: Manual Differential EDMS 08/10 22:26 Order name: CT Abd/Pelvis - Without Contrast; Complete Time: 00:41 dr5 08/10 21:42 Order name: Cardiac monitoring; Complete Time: 23:42 dr5 08/10 21:42 Order name: IV Saline Lock; Complete Time: 00:28 dr5 08/10 21:42 Order name: Labs collected and sent; Complete Time: 00:28 dr5 08/10 21:42 Order name: O2 Per Protocol; Complete Time: 23:23 dr5 08/10 21:42 Order name: O2 Sat Monitoring; Complete Time: 23:23 dr5 Administered Medications: 00:45 Drug: morphine IVP or IV 2 mg IVP once over 4 mins Route: IVP; Infused Over: 4 mins; bm8 Site: right forearm; : Follow up: Response: No adverse reaction bm8 00:45 Drug: Ondansetron IVP 4 mg IVP once; over 2 minutes Route: IVP; Site: right forearm; bm8 : Follow up: Response: No adverse reaction bm8 Disposition Summary: 08/11/24 01:09 Discharge Ordered Notes: Location: Home dr5 Condition: Stable dr5 Diagnosis - Diarrhea, unspecified dr5 - Other hemorrhoids dr5 Followup: dr5 - With: Emergency Department - When: As needed - Reason: Worsening of condition Followup: dr5 - With: Private Physician - When: 1 - 2 days - Reason: Recheck today's complaints, Continuance of care, Re-evaluation by your physician Discharge Instructions: - Discharge Summary Sheet dr5 - Food Choices to Help Relieve Diarrhea, Adult dr5 - Diarrhea, Adult dr5 - Hemorrhoids dr5 Forms: - Medication Reconciliation Form dr5 - Patient Portal Instructions dr5 - Leadership Thank You Letter dr5 Addendum: 08/12/2024 06:44 Co-signature as Attending Physician, James Rossi MD I agree with the assessment and c layton plan of care. Signatures: Dispatcher [employer] James Finnegan MD MD cha Martinez, Clarissa, RN RN cm10 Domenic Dawson, RN RN bm8 Cesar Augustin, SOCIAL SERVICE TECHNICIAN-C SOCIAL SERVICE TECHNICIAN-Cdr5 Corrections: (The following items were deleted from the chart) 08/10 23:42 21:42 EKG - Nurse/Tech ordered. dr5 al5
--- NOTE | 2024-08-11 01:10 | ER ---
Nurse's Notes [facility] Name: Bella Barron Age: 64 yrs Sex: Female : 1960 Arrival Date: 08/10/2024 Time: 21:00 Bed 6 Private MD: Diagnosis: Diarrhea, unspecified;Other hemorrhoids Presentation: 08/10 21:10 Chief complaint: Patient states: she has had diarrhea for weeks and its not getting cm10 better. Pt reports having pain to her rectum. Coronavirus screen: Client denies travel out of the [place] in the last 14 days. Ebola Screen: Patient denies travel to an Ebola-affected area in the 21 days before illness onset. No symptoms or risks identified at this time. Initial Sepsis Screen: Does the patient meet any 2 criteria? No. Patient's initial sepsis screen is negative. Does the patient have a suspected source of infection? No. Patient's initial sepsis screen is negative. Risk Assessment: Do you want to hurt yourself or someone else? Patient reports no desire to harm self or others. Onset of symptoms was August 10, 2024. 21:10 Method Of Arrival: Wheelchair cm10 21:10 Acuity: OLEG 3 cm10 Historical: - Allergies: 21:12 ceftriaxone; cm10 21:12 Ciprofloxacin; cm10 21:12 Egg Derived; cm10 21:12 Iodine; cm10 21:12 LACTASE; cm10 21:12 Promethazine; cm10 - PMHx: 21:12 cirrhosis of liver; Crohn's Disease; hypotension; kidney disease; Liver transplant (Jul); trach removed Jun 2022; - PSHx: 21:12 bowel resection; Cholecystectomy; Colectomy; left shoulder replacement; liver cm10 transplant; - Immunization history:: Adult Immunizations unknown. - Infectious Disease History:: Denies. - Social history:: Smoking status: Patient reports the use of cigarette tobacco products, smokes one pack cigarettes per day. Screenin/31 00:28 [facility] ED Fall Risk Assessment (Adult) History of falling in the last 3 months, bm8 including since admission No falls in past 3 months (0 pts) Confusion or Disorientation No (0 pts) Intoxicated or Sedated No (0 pts) Impaired Gait Yes (1 pt) Mobility Assist Device Used No (0 pt) Altered Elimination No (0 pt) Score/Fall Risk Level 0 - 2 = Low Risk Oriented to surroundings, Maintained a safe environment, Educated pt \T\ family on fall prevention, incl call for assistance when getting out of bed, Assessed \T\ reinforced patient's understanding of fall precautions, Hourly rounding (assess needs \T\ fall precautionary measures) done, Used ambulatory aids as needed (educated on \T\ assisted with), Used gait belt as appropriate. Abuse screen: Denies threats or abuse. Nutritional screening: No deficits noted. Tuberculosis screening: No symptoms or risk factors identified. Assessment: 00:43 Reassessment: Patient appears in no apparent distress at this time. Patient and/or bm8 family updated on plan of care and expected duration. Pain level reassessed. Patient is alert, oriented x 3, equal unlabored respirations, skin warm/dry/pink. General: Appears in no apparent distress. comfortable, Behavior is calm, cooperative, appropriate for age. Pain: Complains of pain in abdomen Pain currently is 8 out of 10 on a pain scale. Neuro: No deficits noted. Level of Consciousness is awake, alert, obeys commands, Oriented to person, place, time, situation, Appropriate for age. Cardiovascular: Denies chest pain, Capillary refill < 3 seconds in bilateral fingers Patient's skin is warm and dry. Respiratory: Airway is patent Respiratory effort is even, unlabored, Respiratory pattern is regular, symmetrical, Breath sounds are clear bilaterally. GI: Abdomen is round non-distended, Bowel sounds present X 4 quads. Reports diarrhea. : No signs and/or symptoms were reported regarding the genitourinary system. EENT: No signs and/or symptoms were reported regarding the EENT system. Derm: No signs and/or symptoms reported regarding the dermatologic system. Musculoskeletal: No signs and/or symptoms reported regarding the musculoskeletal system. 01:26 Reassessment: Patient appears in no apparent distress at this time. Patient and/or bm8 family updated on plan of care and expected duration. Pain level reassessed. Patient is alert, oriented x 3, equal unlabored respirations, skin warm/dry/pink. Patient denies pain at this time. Patient states feeling better. Patient states symptoms have improved. Vital Signs: 08/10 21:10 BP 161 / 99; Pulse 78; Resp 15; Temp 97.3(TE); Pulse Ox 100% on R/A; Weight 68.04 kg; cm10 Height 4 ft. 11 in. ; Pain 10/10; 08/11 00:28 BP 160 / 93; Pulse 65; Resp 19; Temp 97.3; Pulse Ox 100% ; Pain 7/10; bm8 01:26 Pulse 66; Resp 19; Temp 97.4; Pulse Ox 99% ; Pain 0/10; bm8 08/10 21:10 Body Mass Index 30.30 (68.04 kg, 149.86 cm) cm10 08/10 21:10 Pain Scale: Adult cm10 08/11 00:28 Pain Scale: Adult bm8 01:26 Pain Scale: Adult bm8 01:26 pt refused to allow last BP to be taken bm8 Yojana Coma Score: 00:28 Eye Response: spontaneous(4). Motor Response: obeys commands(6). Verbal Response: bm8 oriented(5). Total: 15. 01:26 Eye Response: spontaneous(4). Motor Response: obeys commands(6). Verbal Response: bm8 oriented(5). Total: 15. ED Course: 08/10 21:03 Patient arrived in ED. ra3 21:12 Triage completed. cm10 21:12 Arm band placed on right wrist. Patient placed in waiting room, in a wheelchair. cm10 21:21 Cesar Augustin FNP-C is PHCP. dr5 21:21 James Rossi MD is Attending Physician. dr5 23:01 CT Abd/Pelvis - Without Contrast In Process Unspecified. EDMS 23:01 Callie Rivera, AMARILIS is Primary Nurse. al5 08/11 00:28 Patient has correct armband on for positive identification. Placed in gown. Bed in low bm8 position. Call light in reach. Side rails up X2. Adult w/ patient. Client placed on continuous cardiac and pulse oximetry monitoring. NIBP monitoring applied. Pulse ox on. Door closed. Noise minimized. Warm blanket given. Pillow given. Verbal reassurance given. Head of bed elevated. 00:28 No provider procedures requiring assistance completed. Initial lab(s) drawn, by murray mabry sent to lab. Inserted saline lock: 20 gauge in right forearm, using aseptic technique. ,using aseptic technique. ultrasound guided Blood collected. Flushed with 10 mL NS. Patient maintains SpO2 saturation greater than 95% on room air. 01:26 Provided Education on: post er care. bm8 01:26 IV discontinued, intact, bleeding controlled, No redness/swelling at site. Pressure bm8 dressing applied. Administered Medications: 00:45 Drug: morphine IVP or IV 2 mg IVP once over 4 mins Route: IVP; Infused Over: 4 mins; bm8 Site: right forearm; : Follow up: Response: No adverse reaction bm8 00:45 Drug: Ondansetron IVP 4 mg IVP once; over 2 minutes Route: IVP; Site: right forearm; bm8 :27 Follow up: Response: No adverse reaction bm8 Medication: 00:28 VIS not applicable for this client. bm8 Outcome: : Discharge ordered by . dr5 01: Discharged to home ambulatory, with family, bm8 : Condition: stable 01: Discharge instructions given to patient, family, Instructed on discharge instructions, the need for admit, no drinking with medication, no driving heavy equipment, medication usage, safety practices, Demonstrated understanding of instructions, follow-up care, medications, :28 Patient left the ED. bm8 Signatures: Dispatcher [employer] EDMS Zoraida Uribe, RN RN cm10 Chuyita Fernando ra3 Domenic Dawson RN RN bm8 Callie Rivera RN RN al5 Cesar Augustin, GULLET SLITTER-C GULLET SLITTER-Cdr5 Corrections: (The following items were deleted from the chart) 00:45 00:28 Inserted saline lock: 20 gauge in right forearm, using aseptic technique. Blood bm8 collected. Flushed with 10 mL NS bm8
[2024-08-11 01:48] LABS: Band Neutrophils 3 % (0-1); Blood Morphology Comment NOT SEEN (NOT SEEN); Differential Total Cells Count 100; Lymphocytes 11 % (15-42); Monocytes 2 % (0-10); Platelet Estimate ADEQ; Segmented Neutrophils 84 % (40-80)
[2024-08-11 08:59] VITALS: BP 160/93
[2024-08-11 09:00] VITALS: TEMP 97.4; O2SAT 99
== END 2024-08-11 01:28 | disposition home or self-care (01) ==
LOC: ER 21:00
DX: R19.7 Diarrhea, unspecified (principal); K64.8 Other hemorrhoids; R30.0 Dysuria; Z94.4 Liver transplant status
CPT/HCPCS: 85025; 36415; 82140; 85610; 84484; 80053; 83880; 74176; 96375; 96374; 99284; J2270; J2405

== ENCOUNTER 2024-10-19 13:55 | Emergency (ER) | payer OTHER ==
[2024-10-19 16:35] LABS: Absolute Basophils 0.1 K/uL (0-0.5); Absolute Eosinophils 0.1 K/uL (0-0.5); Absolute Lymphocytes (CBC) 2.6 K/uL (0.7-4.9); Absolute Monocytes 0.8 K/uL (0.1-1.3); Absolute Neutrophil 4.7 K/uL (1.8-8.0); Basophils % 0.7 % (0-1.3); Eosinophils % 0.8 % (0-4.4); Hematocrit 39.4 % (36.0-45.0); Hemoglobin 13.1 g/dL (12.0-15.0); Lymphocytes % 32.4 % (15.3-44.8); MCH 30.7 pg (27.0-35.0); MCHC 33.3 g/dL (32.0-36.0); MCV 92.2 fL (80-100); MPV 8.6 fL (7.6-11.3); Monocytes % 9.2 % (3.3-12.3); Neutrophils % 56.9 % (41.7-73.7); Nucleated Red Blood Cells % 0.1 % (0-0); Platelets 187 thou/uL (152-406); RBC Red Blood Cell Count 4.28 M/uL (3.86-4.86); Red Cell Distribution Width 20.4 % (12.1-15.2)
[2024-10-19 16:39] LABS: PT Prothrombin Time 13.1 SECONDS (10-13.0); PTT, Activated Partial Thromb 37.8 SECONDS (27.2-37.4); Protime INR 1.16
--- NOTE | 2024-10-19 16:41 | RAD REPORT ---
Procedure: Chest Single View HISTORY: Abdominal pain COMPARISON: 2023 FINDINGS: Nodular opacity has developed overlying the right base. Remainder of the lungs appear clear of acute infiltrate. No significant pleural effusion noted. The heart is normal size. IMPRESSION: Nodular opacity overlying the right base probably a confluence of ribs and vessels rather than a pulm onary nodule. However, it is recommended that patient have PA and lateral chest x-ray for further evaluation
[2024-10-19 16:53] LABS: Albumin 2.8 g/dL (3.4-5.0); Albumin/Globulin Ratio 0.8 (1.1-1.8); Anion Gap 8.9 mEq/L (5.0-15.0); Bilirubin Direct 0.2 mg/dL (0-0.2); Bilirubin Indirect, Calculated 0.4 mg/dL (0.2-0.8); Bilirubin Total 0.6 mg/dL (0.2-1.0); Globulin 3.3 g/dL (2.3-3.5); Protein, Total 6.1 g/dL (6.4-8.2)
[2024-10-19 16:54] LABS: Magnesium 1.4 mg/dL (1.6-2.4); Potassium 3.9 mEq/L (3.5-5.1)
[2024-10-19 17:26] LABS: Anisocytosis 1+; Blood Morphology Comment NOTED (NOT SEEN); Platelet Estimate ADEQ; White Blood Cell Scan OK (OK)
--- NOTE | 2024-10-19 18:12 | RAD REPORT ---
EXAM: CT CHEST, ABDOMEN AND PELVIS WITHOUT CONTRAST CLINICAL INDICATION: Chest and abdominal pain. Hematochezia TECHNIQUE: CT chest, abdomen and pelvis was performed, without IV contrast, as per department protoco l. Axial, sagittal and coronal reconstructions were obtained. One or more of the following dose reduction techniques were used: Automated exposure control, adjustment of the mA and/or kV according to the patient size, and/or iterative reconstruction. Unless otherwise specified, incidental findings do not require dedicated imaging follow-up. The lack of IV and oral contrast limits evaluation of the mediastinum, adela, vessels, organs and lucio l. COMPARISON: 2023 FINDINGS: Lungs are clear. No mediastinal or hilar lymphadenopathy seen. Right posterior diaphragmatic hernia containing fat. No pleural effusion. No pericardial effusion. Fatty liver Spleen is borderline enlarged The pancreas, and adrenals grossly normal. Small nonobstructing renal calculi. Small renal cysts. Post surgical changes involve the colon. No obstruction. No adnexal mass. Stable presacral soft tissue with low density probably benign. There is no evidence of diverticulitis IMPRESSION: No acute abnormality displayed
--- NOTE | 2024-10-19 19:26 | ER ---
Nurse's Notes [facility] Name: Bella Barron Age: 64 yrs Sex: Female : 1960 Arrival Date: 10/19/2024 Time: 13:55 Bed 14 Private MD: Diagnosis: Anal fissure, unspecified;Pressure ulcer of buttock Presentation: 10/19 14:33 Chief complaint: Blood in stool since this morning, diffuse abdominal pain and nausea x hb 2 days. Coronavirus screen: At this time, the client does not indicate any symptoms associated with coronavirus-19. Ebola Screen: No symptoms or risks identified at this time. Initial Sepsis Screen: Does the patient meet any 2 criteria? No. Patient's initial sepsis screen is negative. Does the patient have a suspected source of infection? No. Patient's initial sepsis screen is negative. Risk Assessment: Do you want to hurt yourself or someone else? Patient reports no desire to harm self or others. Onset of symptoms was October 18, 2024. 14:33 Method Of Arrival: Ambulatory hb 14:33 Acuity: OLEG 3 hb Historical: - Allergies: 14:34 ceftriaxone; hb 14:34 Ciprofloxacin; hb 14:34 Egg Derived; hb 14:34 Iodine; hb 14:34 LACTASE; hb 14:34 Promethazine; hb - PMHx: 14:34 cirrhosis of liver; Crohn's Disease; hypotension; kidney disease; Liver transplant (Jul); trach removed Jun 2022; - PSHx: 14:34 Cholecystectomy; bowel resection; Colectomy; left shoulder replacement; liver hb transplant; - Immunization history:: Adult Immunizations up to date. - Infectious Disease History:: Denies. - Social history:: Smoking status: Patient denies any tobacco usage or history of. Screenin:26 [facility] ED Fall Risk Assessment (Adult) History of falling in the last 3 months, kc6 including since admission No falls in past 3 months (0 pts) Confusion or Disorientation No (0 pts) Intoxicated or Sedated No (0 pts) Impaired Gait No (0 pts) Mobility Assist Device Used No (0 pt) Altered Elimination No (0 pt) Score/Fall Risk Level 0 - 2 = Low Risk Oriented to surroundings, Maintained a safe environment, Educated pt \T\ family on fall prevention, incl call for assistance when getting out of bed. Abuse screen: Denies threats or abuse. Denies injuries from another. Nutritional screening: No deficits noted. Tuberculosis screening: No symptoms or risk factors identified. Assessment: 17:26 General: Appears in no apparent distress. comfortable, well groomed, well developed, kc6 Behavior is calm, cooperative, appropriate for age. Pain: Complains of pain in abdomen. Neuro: Level of Consciousness is awake, alert, obeys commands, Oriented to person, place, time, situation, Appropriate for age. Cardiovascular: Capillary refill < 3 seconds. Respiratory: Airway is patent Trachea midline Respiratory effort is even, unlabored, Respiratory pattern is regular, symmetrical. GI: Abdomen is flat, non-distended, Reports lower abdominal pain, upper abdominal pain, diarrhea, rectal bleeding, bloody stool, Patient currently denies nausea, vomiting. : No signs and/or symptoms were reported regarding the genitourinary system. EENT: No signs and/or symptoms were reported regarding the EENT system. Derm: No signs and/or symptoms reported regarding the dermatologic system. Skin is fragile, is thin, with poor turgor Skin is dry, Skin is pale, Skin temperature is warm. Musculoskeletal: No signs and/or symptoms reported regarding the musculoskeletal system. Circulation, motion, and sensation intact. Range of motion: intact in all extremities. 18:26 Reassessment: Patient appears in no apparent distress at this time. No changes from kc6 previously documented assessment. Patient and/or family updated on plan of care and expected duration. Pain level reassessed. 19:15 Reassessment: Patient and/or family updated on plan of care and expected duration. Pain br2 level reassessed. Patient is alert, oriented x 3, equal unlabored respirations, skin warm/dry/pink. Patient states feeling better. Patient states symptoms have improved. Vital Signs: 14:33 BP 147 / 104; Pulse 94; Resp 18; Temp 98.3; Pulse Ox 100% on R/A; Weight 73.03 kg; hb Height 4 ft. 11 in. ; Pain 10/10; 17:25 BP 124 / 85; Pulse 78; Resp 18 S; Pulse Ox 100% on R/A; kc6 18:10 BP 132 / 80; Pulse 78; Resp 17 S; Pulse Ox 100% on R/A; kc6 19:11 BP 109 / 77; Pulse 80; Resp 18 S; Pulse Ox 100% on R/A; kc6 20:30 BP 110 / 74; Pulse 78; Resp 20 S; Pulse Ox 100% on R/A; br2 14:33 Body Mass Index 32.52 (73.03 kg, 149.86 cm) hb 14:33 Pain Scale: Adult hb ED Course: 13:58 Patient arrived in ED. mr 14:07 James Busby PA is PHCP. cp 14:07 Beau Encarnacion MD is Attending Physician. cp 14:34 Triage completed. hb 14:34 Arm band placed on. hb 15:55 XRAY Chest (1 view) In Process Unspecified. EDMS 16:24 Initial lab(s) drawn, by me, sent to lab. Inserted saline lock: 22 gauge in left zm antecubital area, using aseptic technique. Blood collected. Flushed with 10 mL NS. 16:25 Ptt, Activated Sent. zm 16:25 Lipase Sent. zm 16:25 Basic Metabolic Panel Sent. zm 16:25 CBC with Diff Sent. zm 16:25 LFT's Sent. zm 16:25 Magnesium Sent. zm 16:25 NT PRO-BNP Sent. zm 16:25 PT-INR Sent. zm 16:25 Troponin HS Sent. zm 17:25 Nicolle Meneses, RN is Primary Nurse. kc6 17:25 Patient has correct armband on for positive identification. Placed in gown. Bed in low kc6 position. Call light in reach. Side rails up X2. Adult w/ patient. metal furniture polisher on. Pulse ox on. NIBP on. Door closed. Noise minimized. Lights dimmed. Warm blanket given. Pillow given. Verbal reassurance given. 17:26 Cleaned of incontinence. Linen changed. kc6 17:26 Served as a ethnoarchaeologist during rectal exam. kc6 17:44 CT Chest Abdomen Pelvis W/O Contrast In Process Unspecified. EDMS 19:00 Report given to Katharina Broderick RN. kc6 20:47 IV discontinued, intact, bleeding controlled, No redness/swelling at site. Pressure br2 dressing applied. Administered Medications: 19:47 Drug: Magnesium Sulfate IVPB 1 grams IVPB once over 20 mins Route: IVPB; Infused Over: br2 20 mins; Site: left antecubital; 20:30 Follow up: IV Status: Completed infusion; IV Intake: 50ml br2 Intake: 20:30 IV: 50ml; Total: 50ml. br2 Outcome: 19:25 Discharge ordered by . cp 20:47 Discharged to home via wheelchair, br2 20:47 Condition: stable 20:47 Discharge instructions given to patient, family, Instructed on discharge instructions, follow up and referral plans. Demonstrated understanding of instructions, follow-up care, medications, 22:03 Patient left the ED. br2 Signatures: Dispatcher [employer] EDMS John Mary Ann, Reg Reg mr James Busby, PA PA Gwendolyn Temple, AMARILIS RN hb Suzie Uribe Kaitlyn RN RN kc6 Katharina Broderick RN RN br2 Corrections: (The following items were deleted from the chart) 14:35 14:33 BP 1 / ???; 73.03 kg; Height 4 ft. 11 in.; BMI: 32.5; Pain 10/10, Adult; hb hb 19:12 19:11 BP 10 / 77; Pulse 80bpm; Resp 18bpm; Spontaneous; Pulse Ox 100% RA; kc6 kc6
--- NOTE | 2024-10-19 19:26 | EDPHYS ---
Physician Documentation [facility] Name: Bella Barron Age: 64 yrs Sex: Female : 1960 Arrival Date: 10/19/2024 Time: 13:55 Bed 14 Private MD: ED Physician Beau Encarnacion HPI: 10/19 15:25 This 64 yrs old Female presents to ER via Ambulatory with complaints of Bloody Stools. cp 15:25 The patient presents to the emergency department with rectal bleeding, red colored cp blood noted in toilet, dark red blood with bowel movement with multiple such episodes, reported in 2 bowel movements today. Onset: The symptoms/episode began/occurred today. Abdominal pain: described as constant. Associated signs and symptoms: Pertinent negatives: chest pain, constipation, diarrhea, fever, syncope, vomiting. Severity of symptoms: in the emergency department the symptoms are unchanged despite home interventions. Historical: - Allergies: 14:34 ceftriaxone; hb 14:34 Ciprofloxacin; hb 14:34 Egg Derived; hb 14:34 Iodine; hb 14:34 LACTASE; hb 14:34 Promethazine; hb - PMHx: 14:34 cirrhosis of liver; Crohn's Disease; hypotension; kidney disease; Liver transplant (Jul); trach removed Jun 2022; - PSHx: 14:34 Cholecystectomy; bowel resection; Colectomy; left shoulder replacement; liver hb transplant; - Immunization history:: Adult Immunizations up to date. - Infectious Disease History:: Denies. - Social history:: Smoking status: Patient denies any tobacco usage or history of. ROS: 15:30 Constitutional: Negative for body aches, chills, fever, poor PO intake, cp 15:30 Eyes: Negative for injury, pain, redness, and discharge, cp 15:30 ENT: Negative for drainage from ear(s), ear pain, sore throat, difficulty swallowing, difficulty handling secretions, 15:30 Cardiovascular: Negative for chest pain, edema, palpitations, 15:30 Respiratory: Negative for cough, shortness of breath, wheezing, 15:30 Abdomen/GI: Positive for abdominal pain, rectal bleeding, dark colored stool, Negative for vomiting, diarrhea, constipation, 15:30 : Negative for urinary symptoms, 15:30 Neuro: Negative for altered mental status, headache, 15:30 All other systems are negative, Exam: 15:35 Constitutional: The patient appears in no acute distress, alert, awake, cp non-diaphoretic, non-toxic, well developed, well nourished, pale, 15:35 Head/Face: Normocephalic, atraumatic. cp 15:35 Eyes: Periorbital structures: appear normal, Conjunctiva: normal, no exudate, no injection, Sclera: no appreciated abnormality, Lids and lashes: appear normal, bilaterally, 15:35 ENT: External ear(s): are unremarkable, Nose: is normal, Mouth: Lips: moist, Oral mucosa: moist, Posterior pharynx: Airway: no evidence of obstruction, patent, 15:35 Chest/axilla: Inspection: normal, 15:35 Cardiovascular: Rate: normal, Rhythm: regular, Edema: is not appreciated, JVD: is not appreciated, 15:35 Respiratory: the patient does not display signs of respiratory distress, Respirations: normal, no use of accessory muscles, no retractions, labored breathing, is not present, Breath sounds: are clear throughout, no decreased breath sounds, no stridor, no wheezing, 15:35 Abdomen/GI: Inspection: abdomen appears normal, Bowel sounds: active, all quadrants, Palpation: soft, in all quadrants, mild abdominal tenderness, in all quadrants, rebound tenderness, is not appreciated, Rectal exam: hemorrhoid(s), external, without inflammation, without thrombosis, multiple small fissures noted with mild active bleeding, stool appears brown colored on digital exam. 15:35 Back: CVA tenderness, is absent, 15:35 Skin: area of erythema noted to buttocks and sacral area. 15:35 Neuro: Orientation: no acute changes, per family, Mentation: able to follow commands, Motor: moves all fours, Vital Signs: 14:33 BP 147 / 104; Pulse 94; Resp 18; Temp 98.3; Pulse Ox 100% on R/A; Weight 73.03 kg; hb Height 4 ft. 11 in. ; Pain 10/10; 17:25 BP 124 / 85; Pulse 78; Resp 18 S; Pulse Ox 100% on R/A; kc6 18:10 BP 132 / 80; Pulse 78; Resp 17 S; Pulse Ox 100% on R/A; kc6 19:11 BP 109 / 77; Pulse 80; Resp 18 S; Pulse Ox 100% on R/A; kc6 20:30 BP 110 / 74; Pulse 78; Resp 20 S; Pulse Ox 100% on R/A; br2 14:33 Body Mass Index 32.52 (73.03 kg, 149.86 cm) hb 14:33 Pain Scale: Adult hb MDM: 19:25 Medical Screening Exam initiated cp 19:25 Data reviewed: vital signs, nurses notes, lab test result(s), EKG, radiologic studies, cp CT scan, and as a result, I will discharge patient. 19:25 Differential diagnosis: gastritis, diverticulitis, hemorrhoids, hemorrhagic shock, cp varices, anemia. I considered the following discharge prescriptions or medication management in the emergency department Medications were administered in the Emergency Department. See MAR. Independent interpretation of the following test(s) in the Emergency Department EKG: See my EKG interpretation above. Care significantly affected by the following chronic conditions: Chronic Kidney Disease, Liver Disease. Counseling: I had a detailed discussion with the patient and/or guardian regarding the historical points, exam findings, and any diagnostic results supporting the discharge/admit diagnosis, lab results, radiology results, to return to the emergency department if symptoms worsen or persist or if there are any questions or concerns that arise at home. Special discussion: Based on the patient's Hx, exam, and Dx evaluation, there is no indication for emergent surgery or inpatient Tx. It is understood by the patient/guardian that if the Sx's persist or worsen they need to return immediately for re-evaluation. 10/19 15:20 Order name: Basic Metabolic Panel; Complete Time: 17:20 cp 10/19 17:21 Interpretation: Normal except: CL 109; BUN 23; CRE 1.67; GFR 34. cp 10/19 15:20 Order name: CBC with Diff; Complete Time: 18:32 cp 10/19 18:32 Interpretation: Normal except: RDW 20.4. cp 10/19 15:20 Order name: LFT's; Complete Time: 17:20 cp 10/19 18:34 Interpretation: Normal except: ALK 118; TP 6.1; ALB 2.8; A/G 0.8. cp 10/19 15:20 Order name: Magnesium; Complete Time: 17:20 cp 10/19 15:20 Order name: NT PRO-BNP; Complete Time: 17:20 cp 10/19 15:20 Order name: PT-INR; Complete Time: 16:46 cp 10/19 15:20 Order name: Troponin HS; Complete Time: 17:20 cp 10/19 15:20 Order name: Ptt, Activated; Complete Time: 16:46 cp 10/19 15:20 Order name: Lipase; Complete Time: 17:20 cp 10/19 17:27 Order name: CBC Smear Scan; Complete Time: 18:32 EDMS 10/19 18:33 Interpretation: Reviewed. cp 10/19 15:20 Order name: XRAY Chest (1 view); Complete Time: 16:46 cp 10/19 17:22 Order name: CT Chest Abdomen Pelvis W/O Contrast; Complete Time: 18:32 cp 10/19 18:33 Interpretation: Report reviewed. cp 10/19 15:20 Order name: EKG; Complete Time: 15:21 cp 10/19 15:20 Order name: Cardiac monitoring; Complete Time: 17:25 cp 10/19 15:20 Order name: EKG - Nurse/Tech; Complete Time: 17:25 cp 10/19 15:20 Order name: IV Saline Lock; Complete Time: 16:25 cp 10/19 15:20 Order name: Labs collected and sent; Complete Time: 16:25 cp 10/19 15:20 Order name: O2 Per Protocol; Complete Time: 17:25 cp 10/19 15:20 Order name: O2 Sat Monitoring; Complete Time: 17:25 cp Administered Medications: 19:47 Drug: Magnesium Sulfate IVPB 1 grams IVPB once over 20 mins Route: IVPB; Infused Over: br2 20 mins; Site: left antecubital; 20:30 Follow up: IV Status: Completed infusion; IV Intake: 50ml br2 Disposition: 10/20 16:28 Co-signature as Attending Physician, Beau Encarnacion MD I reviewed the patient's care rn provided by the Advanced Practice Provider and agree with the diagnosis and treatment plan. Disposition Summary: 10/19/24 19:25 Discharge Ordered Notes: Location: Home cp Problem: new cp Symptoms: have improved cp Condition: Stable(10/19/24 19:26) cp Diagnosis - Anal fissure, unspecified cp - Pressure ulcer of buttock cp Followup: cp - With: Private Physician - When: 2 - 3 days - Reason: Worsening of condition Discharge Instructions: - Discharge Summary Sheet cp - Anal Fissure, Adult cp - Preventing Pressure Injuries cp - Pressure Injury cp Forms: - Medication Reconciliation Form cp - Antibiotic Education cp - Prescription Opioid Use cp - Patient Portal Instructions cp - Leadership Thank You Letter cp Signatures: Dispatcher [employer] EDMS Beau Encarnacion MD MD rn James Busby PA PA cp Gwendolyn Gill RN RN Katharina Broderick RN RN br2 Corrections: (The following items were deleted from the chart) 10/19 17:26 17:21 Abdomen Pelvis W/Wo Con+CT.RAD.BRZ ordered. EDMS EDMS 17:26 17:26 Abdomen ordered. EDMS EDMS 18:34 18:33 Normal except: ALK 118. cp cp 19:26 19:25 Fair cp cp
[2024-10-19] MEDS ORDERED: MAGNESIUM SULFATE 1 gm IVPB 1 GM/100 ML BAG IV ONE (19:33)
[2024-10-19 22:59] VITALS: TEMP 98.3; O2SAT 100
[2024-10-19 23:03] VITALS: BP 109/77
--- NOTE | 2024-10-20 10:58 | EKG ---
Test Date: 2024-10-19 Test Time: 17:11:22 Casting Sorter: LAWRENCE MEASUREMENT RESULTS: Intervals: Rate: 84 MD: 154 QRSD: 110 QT: 418 QTc: 493 [place]: P: 73 MD: 154 QRS: 27 T: 52 INTERPRETIVE STATEMENTS: Normal sinus rhythm Right bundle branch block Abnormal ECG Compared to ECG 06/15/2024 10:48:34 Myocardial infarct finding no longer present Electronically Signed On 10-20-24 10:56:19 CDT by Rudy Pandya
== END 2024-10-19 22:03 | disposition home or self-care (01) ==
LOC: ER 13:55
DX: K60.2 Anal fissure, unspecified (principal); L89.309 Pressure ulcer of unspecified buttock, unspecified stage; Z94.4 Liver transplant status
CPT/HCPCS: 96365; 93005; 85025; 80048; 36415; 83735; 85610; 80076; 85730; 84484; 83690; 83880; 71250; 74176; 71045; 99285; J3475

== ENCOUNTER 2024-11-11 00:40 | Emergency (ER) | payer OTHER ==
[2024-11-11] MEDS ORDERED: NA CHLORIDE 0.9% 1,000 ML ONE (01:08)
[2024-11-11] MEDS ORDERED: ONDANSETRON 4 MG/2 ML VIAL ONE (01:08)
[2024-11-11] MEDS ORDERED: MORPHINE 4 MG/ML SYR ONE (01:08)
[2024-11-11 01:50] LABS: Absolute Eosinophils 0.1 K/uL (0-0.5); Absolute Lymphocytes (CBC) 1.7 K/uL (0.7-4.9); Absolute Monocytes 0.4 K/uL (0.1-1.3); Absolute Neutrophil 4.4 K/uL (1.8-8.0); Basophils % 0.5 % (0-1.3); Eosinophils % 1.6 % (0-4.4); Hematocrit 35.3 % (36.0-45.0); Hemoglobin 11.9 g/dL (12.0-15.0); Lymphocytes % 25.6 % (15.3-44.8); MCHC 33.8 g/dL (32.0-36.0); MCV 94.9 fL (80-100); MPV 8.6 fL (7.6-11.3); Monocytes % 6.6 % (3.3-12.3); Neutrophils % 65.7 % (41.7-73.7); Nucleated Red Blood Cells % 0.1 % (0-0); Platelets 172 thou/uL (152-406); RBC Red Blood Cell Count 3.72 M/uL (3.86-4.86); Red Cell Distribution Width 19.2 % (12.1-15.2)
[2024-11-11 01:58] LABS: Albumin 2.5 g/dL (3.4-5.0); Albumin/Globulin Ratio 0.9 (1.1-1.8); Anion Gap 8.8 mEq/L (5.0-15.0); Bilirubin Total 0.6 mg/dL (0.2-1.0); Globulin 2.9 g/dL (2.3-3.5); Potassium 3.8 mEq/L (3.5-5.1); Protein, Total 5.4 g/dL (6.4-8.2)
--- NOTE | 2024-11-11 02:51 | RAD REPORT ---
PROCEDURE: CT Abdomen and Pelvis Without Intravenous Contrast CLINICAL INDICATION: The patient is 64 years old and is Female; ABD PAIN NO CONTRAST Bed Name: 17 TECHNIQUE: Axial computed tomography images of the abdomen and pelvis without intravenous contrast. Sagittal a nd coronal reformatted images were created and reviewed. This CT exam was performed using one or more of the following dose reduction techniques: automated exposure control, adjustment of the mA a nd/or kV according to patient size, and/or use of iterative reconstruction technique. COMPARISON: 10/19/2024 CT chest abdomen pelvis FINDINGS: LUNG BASES: See below. ABDOMEN: LIVER: Fatty infiltration of the liver. GALLBLADDER AND BILE DUCTS: Postsurgical changes related to cholecystectomy and hepatic transplant. No ductal dilation. PANCREAS: Unremarkable No ductal dilation. SPLEEN: Unremarkable No splenomegaly. ADRENALS: Unremarkable No mass. KIDNEYS AND URETERS: Small bilateral nonobstructive intrarenal stones. Simple renal cysts. No follow-up of these simple cysts is necessary. STOMACH AND BOWEL: Postsurgical changes demonstrated at the ileocecal junction with partial bowel r esection and anastomosis, which appears grossly patent, without evidence of small or large bowel obstruction. Air-fluid level demonstrated throughout the colonic lumen with relative loss of haustra demon strated throughout the descending and rectosigmoid colon, with equivocal pericolonic fat stranding. No mucosal thickening. PELVIS: APPENDIX: No findings to suggest acute appendicitis. BLADDER: Unremarkable No stones. REPRODUCTIVE: Presumed hysterectomy. SUBPERITONEAL SPACE: Redemonstrated vague mass or masslike focus demonstrated within the left of mi dline inferior presacral space, hypoattenuating compared to adjacent musculature, measuring approximately 4.3 x 3 x 3.9 cm (transverse by craniocaudal by AP). ABDOMEN and PELVIS: INTRAPERITONEAL SPACE: Unremarkable No free air. No significant fluid collection. BONES/JOINTS: No acute fracture. No dislocation. SOFT TISSUES: Small fat-containing posterior right Bochdalek hernia redemonstrated with associated adjacent passive atelectasis. Redemonstrated midline abdominal wall hernia repair changes. VASCULATURE: Mild calcified atherosclerosis of the abdominal aorta without aneurysmal dilatation. LYMPH NODES: Unremarkable No enlarged lymph nodes. IMPRESSION: 1. Air-fluid level demonstrated throughout the colonic lumen with relative loss of haustra demonstr ated throughout the descending and rectosigmoid colon, with equivocal pericolonic fat stranding. Findings are suspicious for inflammatory versus infectious colitis. Clinical correlation recommended. 2. Redemonstrated vague mass or masslike focus demonstrated within the left of midline inferior pre sacral space, hypoattenuating compared to adjacent musculature, measuring approximately 4.3 x 3 x 3.9 cm. Increased in size compared to 2022 exam. Favors a slow-growing/indolent neoplastic versus an inflammatory process. Further characterization by multiphase pelvic MRI recommended. 3. Postsurgical changes related to cholecystectomy and hepatic transplant, with diffuse back steato sis demonstrated. 4. Small bilateral nonobstructive intrarenal stones. Electronically signed by: Tristan Simmons MD 11/11/2024 02:44 AM CDT RP Due to temporary technical issues with the PACS/iWitness reporting system, reports are being jac d by the in-house radiologist without review as a courtesy to ensure prompt reporting the interpreting radiologist is fully responsible for the content of the report. Transcribed Date/Time: 11/11/2024 2:51 AM
--- NOTE | 2024-11-11 03:44 | EDPHYS ---
Physician Documentation [facility] Name: Bella Barron Age: 64 yrs Sex: Female : 1960 Arrival Date: 11/11/2024 Time: 00:40 Bed 17 Private MD: ED Physician Bebo Cummings HPI: 11/11 01:16 This 64 yrs old Female presents to ER via Wheelchair with complaints of Flu Symptoms, rt Shoulder Injury - left. 01:16 Patient presents to the ED with nausea, vomiting, generalized abdominal pain for the rt past 2 days. Patient does have a history of liver transplant and bowel resection. Is still passing stool, has diarrhea which is chronic for her. The patient states that she slipped getting out of bed hitting her left shoulder which she had replaced. Reports of pain to that area. Denies other acute complaints at this time, symptoms are moderate in severity, no other aggravating alleviating factors.. Historical: - Allergies: 00:59 ceftriaxone; bm8 00:59 Ciprofloxacin; bm8 00:59 Egg Derived; bm8 00:59 Iodine; bm8 00:59 LACTASE; bm8 00:59 Promethazine; bm8 - Home Meds: 00:59 Unable to obtain [Active]; bm8 - PMHx: 00:59 cirrhosis of liver; Crohn's Disease; hypotension; kidney disease; Liver transplant (Jul); trach removed Jun 2022; - PSHx: 00:59 bowel resection; Cholecystectomy; Colectomy; left shoulder replacement; liver bm8 transplant; - Immunization history:: Adult Immunizations not up to date. - Infectious Disease History:: Denies. - Social history:: Smoking status: Patient reports the use of cigarette tobacco products, smokes one pack cigarettes per day. Patient/guardian denies using alcohol, street drugs. - Family history:: not pertinent. ROS: 01:16 Constitutional: Negative for fever, chills, and weight loss, Cardiovascular: Negative rt for chest pain, palpitations, and edema, Respiratory: Negative for shortness of breath, cough, wheezing, and pleuritic chest pain, Skin: Negative for injury, rash, and discoloration, Neuro: Negative for headache, weakness, numbness, tingling, and seizure, 01:16 Abdomen/GI: Positive for abdominal pain, nausea, vomiting, and diarrhea, 01:16 MS/extremity: Positive for pain, Negative for deformity, Exam: 01:16 Constitutional: This is a well developed, well nourished patient who is awake, alert, rt and in no acute distress. Chest/axilla: Normal chest wall appearance and motion. Nontender with no deformity. No lesions are appreciated. Cardiovascular: Regular rate and rhythm with a normal S1 and S2. No gallops, murmurs, or rubs. Normal PMI, no JVD. No pulse deficits. Respiratory: Lungs have equal breath sounds bilaterally, clear to auscultation and percussion. No rales, rhonchi or wheezes noted. No increased work of breathing, no retractions or nasal flaring. Skin: Warm, dry with normal turgor. Normal color with no rashes, no lesions, and no evidence of cellulitis. Neuro: Awake and alert, GCS 15, oriented to person, place, time, and situation. Cranial nerves II-XII grossly intact. Motor strength 5/5 in all extremities. Sensory grossly intact. Cerebellar exam normal. Normal gait. 01:16 Abdomen/GI: Mild tenderness diffusely without rebound, guarding, distention, 01:16 Musculoskeletal/extremity: Mild tenderness/swelling to the left shoulder, full range of motion, no deformities noted, skin is intact. Vital Signs: 00:57 BP 137 / 113; Pulse 106; Resp 18; Temp 97.3; Pulse Ox 99% ; Weight 52.62 kg; Height 4 bm8 ft. 11 in. ; Pain 10/10; 01:56 BP 152 / 95; Pulse 93; Resp 18; Temp 97.3; Pulse Ox 95% ; Pain 6/10; bm8 02:39 BP 131 / 76; Pulse 87; Resp 18; Temp 97.3; Pulse Ox 97% ; Pain 0/10; bm8 03:50 BP 126 / 80; Pulse 88; Resp 18; Temp 97; Pulse Ox 98% ; Pain 5/10; bm8 00:57 Body Mass Index 23.43 (52.62 kg, 149.86 cm) bm8 00:57 Pain Scale: Adult bm8 01:56 Pain Scale: Adult bm8 02:39 Pain Scale: Adult bm8 03:50 Pain Scale: Adult bm8 Yojana Coma Score: 01:56 Eye Response: spontaneous(4). Motor Response: obeys commands(6). Verbal Response: bm8 oriented(5). Total: 15. 02:39 Eye Response: spontaneous(4). Motor Response: obeys commands(6). Verbal Response: bm8 oriented(5). Total: 15. 03:50 Eye Response: spontaneous(4). Motor Response: obeys commands(6). Verbal Response: bm8 oriented(5). Total: 15. MDM: 00:59 Medical Screening Exam initiated rt 04:04 Differential diagnosis: Nausea, vomiting, dehydration, gastroenteritis, Crohn's rt disease, shoulder contusion, shoulder fracture. Data reviewed: vital signs, nurses notes, lab test result(s), radiologic studies. Consideration of Admission/Observation Escalation of care including admission/observation considered. Patient states that she gets her care at [facility], patient states that she was feeling better, still not feeling perfectly. I discussed admission versus outpatient management with the patient as well as discussed her lab, imaging findings at length. Patient states that she wishes to go home, strongly does not wish to stay in the hospital. 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 I informed patient of findings of presacral mass, as well as radiology's recommendations for outpatient MRI. Strict return precautions were discussed.. I considered the following discharge prescriptions or medication management in the emergency department Medications were administered in the Emergency Department. See MAR. Independent interpretation of the following test(s) in the Emergency Department CT Scan: My interpretation is No bowel obstruction seen on my interpretation of CT scan images. Care significantly affected by the following chronic conditions: Hypertension. Counseling: I had a detailed discussion with the patient and/or guardian regarding the historical points, exam findings, and any diagnostic results supporting the discharge/admit diagnosis, lab results, radiology results, the need for outpatient follow up, to return to the emergency department if symptoms worsen or persist or if there are any questions or concerns that arise at home. Response to treatment: the patient's symptoms have markedly improved after treatment. 11/11 01:06 Order name: CBC with Diff; Complete Time: 01:59 rt 04 01:06 Order name: CMP; Complete Time: 01:59 rt 11/11 01:06 Order name: Lipase; Complete Time: 01:59 rt 11/11 01:06 Order name: Shoulder Left (2 View) XRAY rt 11/11 01:06 Order name: CT Abd/Pelvis - Without Contrast rt 11/11 01:06 Order name: IV Saline Lock; Complete Time: 01:06 rt 11/11 01:06 Order name: Labs collected and sent; Complete Time: 01: rt Administered Medications: 01:12 Drug: Ondansetron IVP 4 mg IVP once; over 2 minutes Route: IVP; Site: right antecubital;bm8 02:01 Follow up: Response: No adverse reaction bm8 01:12 Drug: NS 0.9% IV 1000 ml IV at 1 bolus Per protocol; to be given as a bolus over 60 bm8 minutes Route: IV; Rate: 1 bolus; Site: right antecubital; 02:01 Follow up: Response: No adverse reaction; IV Status: Completed infusion bm8 01:13 Drug: morphine IVP or IV 4 mg IVP once over 4 mins Route: IVP; Infused Over: 4 mins; bm8 Site: right antecubital; 02:02 Follow up: Response: No adverse reaction bm8 03:50 Drug: morphine IVP or IV 2 mg IVP once over 4 mins Route: IVP; Infused Over: 4 mins; bm8 Site: right antecubital; 03:51 Follow up: Response: No adverse reaction bm8 Disposition Summary: 11/11/24 03:44 Discharge Ordered Notes: Location: Home rt Problem: an acute exacerbation rt Symptoms: have improved rt Condition: Stable rt Diagnosis - Abdominal pain, unspecified rt - Nausea with vomiting, unspecified rt Followup: rt - With: Private Physician - When: 2 - 3 days - Reason: Discharge Instructions: - Discharge Summary Sheet rt - Abdominal Pain, Adult rt - Nausea and Vomiting, Adult rt Forms: - Medication Reconciliation Form rt - Antibiotic Education rt - Prescription Opioid Use rt - Patient Portal Instructions rt - Leadership Thank You Letter rt Prescriptions: - ondansetron 4 mg Oral Tablet,disintegrating - take 1 tablet ORAL route every 6 hours as needed for nausea; 15 tablet; rt Refills: 0, Product Selection Permitted - Prednisone 20 mg Oral Tablet - take 2 tablets ORAL route once daily for 5 days; 10 tablet; Refills: 0, Product rt Selection Permitted Signatures: [facility] Bebo Cummings MD MD rt Domenic Dawson RN RN bm8 Corrections: (The following items were deleted from the chart) 01: 01:06 Shoulder Left 2 View+RAD.RAD.BRZ ordered. EDMS EDMS : 01:07 Abdomen Pelvis Wo Con+CT.RAD.BRZ ordered. EDMS EDMS
--- NOTE | 2024-11-11 03:44 | ER ---
Nurse's Notes [facility] Name: Bella Barron Age: 64 yrs Sex: Female : 1960 Arrival Date: 11/11/2024 Time: 00:40 Bed 17 Private MD: Diagnosis: Abdominal pain, unspecified;Nausea with vomiting, unspecified Presentation: 11/11 00:57 Chief complaint: Patient states: I have been throwing up for two days and I hurt my bm8 left arm. Coronavirus screen: At this time, the client does not indicate any symptoms associated with coronavirus-19. Ebola Screen: Patient negative for fever greater than or equal to 101.5 degrees Fahrenheit, and additional compatible Ebola Virus Disease symptoms Patient denies exposure to infectious person. Patient denies travel to an Ebola-affected area in the 21 days before illness onset. No symptoms or risks identified at this time. Initial Sepsis Screen: Does the patient meet any 2 criteria? HR > 90 bpm. No. Patient's initial sepsis screen is negative. Does the patient have a suspected source of infection? No. Patient's initial sepsis screen is negative. Risk Assessment: Do you want to hurt yourself or someone else? Patient reports no desire to harm self or others. Onset of symptoms was November 09, 2024 at 08:00. 00:57 Method Of Arrival: Wheelchair bm8 00:57 Acuity: OLEG 3 bm8 Triage Assessment: 00:59 General: Appears distressed, uncomfortable, Behavior is calm, cooperative, appropriate bm8 for age. Pain: Complains of pain in abdomen and left arm Pain currently is 10 out of 10 on a pain scale. EENT: No deficits noted. No signs and/or symptoms were reported regarding the EENT system. Neuro: No deficits noted. Level of Consciousness is awake, alert, obeys commands, Oriented to person, place, time, situation, Appropriate for age. Cardiovascular: Denies chest pain, Capillary refill < 3 seconds in bilateral fingers Patient's skin is warm and dry. Respiratory: Airway is patent Respiratory effort is even, unlabored, Respiratory pattern is regular, symmetrical, Breath sounds are clear bilaterally. GI: Abdomen is flat, non-distended, Bowel sounds present X 4 quads. Abdomen is tender to palpation X 4 quads. Reports nausea, vomiting. : No signs and/or symptoms were reported regarding the genitourinary system. Derm: No signs and/or symptoms reported regarding the dermatologic system. Musculoskeletal: Circulation, motion, and sensation intact. Range of motion: limited in left shoulder Reports pain in left arm. Injury Description: fell out of bed. Historical: - Allergies: 00:59 ceftriaxone; bm8 00:59 Ciprofloxacin; bm8 00:59 Egg Derived; bm8 00:59 Iodine; 8 00:59 LACTASE; 8 00:59 Promethazine; bm8 - Home Meds: 00:59 Unable to obtain [Active]; bm8 - PMHx: 00:59 cirrhosis of liver; Crohn's Disease; hypotension; kidney disease; Liver transplant (Jul); trach removed Jun 2022; - PSHx: 00:59 bowel resection; Cholecystectomy; Colectomy; left shoulder replacement; liver bm8 transplant; - Immunization history:: Adult Immunizations not up to date. - Infectious Disease History:: Denies. - Social history:: Smoking status: Patient reports the use of cigarette tobacco products, smokes one pack cigarettes per day. Patient/guardian denies using alcohol, street drugs. - Family history:: not pertinent. Screenin:01 [facility] ED Fall Risk Assessment (Adult) History of falling in the last 3 months, bm8 including since admission Yes- single mechanical fall (1 pt) Confusion or Disorientation No (0 pts) Intoxicated or Sedated No (0 pts) Impaired Gait No (0 pts) Mobility Assist Device Used No (0 pt) Altered Elimination No (0 pt) Score/Fall Risk Level 0 - 2 = Low Risk Oriented to surroundings, Maintained a safe environment, Educated pt \T\ family on fall prevention, incl call for assistance when getting out of bed, Provided non-skid footwear, Hourly rounding (assess needs \T\ fall precautionary measures) done, Used ambulatory aids as needed (educated on \T\ assisted with), Used gait belt as appropriate. Abuse screen: Denies threats or abuse. Nutritional screening: No deficits noted. Tuberculosis screening: No symptoms or risk factors identified. Assessment: 01:13 Reassessment: see triage assessment. bm8 01:56 Reassessment: Patient appears in no apparent distress at this time. Patient and/or bm8 family updated on plan of care and expected duration. Pain level reassessed. Patient is alert, oriented x 3, equal unlabored respirations, skin warm/dry/pink. Patient states feeling better. Patient states symptoms have improved. 01:56 GI: Patient currently denies nausea, vomiting. bm8 02:39 Reassessment: Patient appears in no apparent distress at this time. Patient and/or bm8 family updated on plan of care and expected duration. Pain level reassessed. Patient is alert, oriented x 3, equal unlabored respirations, skin warm/dry/pink. Patient states feeling better. 03:50 Reassessment: Patient appears in no apparent distress at this time. Patient and/or bm8 family updated on plan of care and expected duration. Pain level reassessed. Patient is alert, oriented x 3, equal unlabored respirations, skin warm/dry/pink. Pain: Pain currently is 5 out of 10 on a pain scale. Vital Signs: 00:57 BP 137 / 113; Pulse 106; Resp 18; Temp 97.3; Pulse Ox 99% ; Weight 52.62 kg; Height 4 bm8 ft. 11 in. ; Pain 10/10; 01:56 BP 152 / 95; Pulse 93; Resp 18; Temp 97.3; Pulse Ox 95% ; Pain 6/10; bm8 02:39 BP 131 / 76; Pulse 87; Resp 18; Temp 97.3; Pulse Ox 97% ; Pain 0/10; bm8 03:50 BP 126 / 80; Pulse 88; Resp 18; Temp 97; Pulse Ox 98% ; Pain 5/10; bm8 00:57 Body Mass Index 23.43 (52.62 kg, 149.86 cm) bm8 00:57 Pain Scale: Adult bm8 01:56 Pain Scale: Adult bm8 02:39 Pain Scale: Adult bm8 03:50 Pain Scale: Adult bm8 [place] Coma Score: 01:56 Eye Response: spontaneous(4). Motor Response: obeys commands(6). Verbal Response: bm8 oriented(5). Total: 15. 02:39 Eye Response: spontaneous(4). Motor Response: obeys commands(6). Verbal Response: bm8 oriented(5). Total: 15. 03:50 Eye Response: spontaneous(4). Motor Response: obeys commands(6). Verbal Response: bm8 oriented(5). Total: 15. ED Course: 00:43 Patient arrived in ED. im 00:43 Bebo Cummings MD is Attending Physician. rt 00:57 Domenic Dawson, RN is Primary Nurse. bm8 00:59 Triage completed. bm8 00:59 Arm band placed on right wrist. bm8 01:00 Inserted saline lock: 20 gauge in right antecubital area, using aseptic technique. jb4 Blood collected. 01:01 Patient has correct armband on for positive identification. Bed in low position. Call bm8 light in reach. Side rails up X 1. Adult w/ patient. Client placed on continuous cardiac and pulse oximetry monitoring. NIBP monitoring applied. Pulse ox on. NIBP on. Door closed. Noise minimized. Warm blanket given. Pillow given. Verbal reassurance given. Head of bed elevated. 01:01 Patient maintains SpO2 saturation greater than 95% on room air. bm8 01:13 Initial lab(s) drawn, by ED staff, sent to lab. bm8 01:34 Shoulder Left (2 View) XRAY In Process Unspecified. EDMS 01:47 CT Abd/Pelvis - Without Contrast In Process Unspecified. EDMS 03:50 Provided Education on: post er care. bm8 03:50 No provider procedures requiring assistance completed. IV discontinued, intact, bm8 bleeding controlled, No redness/swelling at site. Pressure dressing applied. Administered Medications: 01:12 Drug: Ondansetron IVP 4 mg IVP once; over 2 minutes Route: IVP; Site: right antecubital;bm8 02:01 Follow up: Response: No adverse reaction bm8 01:12 Drug: NS 0.9% IV 1000 ml IV at 1 bolus Per protocol; to be given as a bolus over 60 bm8 minutes Route: IV; Rate: 1 bolus; Site: right antecubital; 02:01 Follow up: Response: No adverse reaction; IV Status: Completed infusion bm8 01:13 Drug: morphine IVP or IV 4 mg IVP once over 4 mins Route: IVP; Infused Over: 4 mins; bm8 Site: right antecubital; 02:02 Follow up: Response: No adverse reaction bm8 03:50 Drug: morphine IVP or IV 2 mg IVP once over 4 mins Route: IVP; Infused Over: 4 mins; bm8 Site: right antecubital; 03:51 Follow up: Response: No adverse reaction bm8 Medication: 01:01 VIS not applicable for this client. bm8 Outcome: 03:44 Discharge ordered by . rt 04:03 Discharged to home via wheelchair, with family, bm8 04:03 Condition: stable 04:03 Discharge instructions given to patient, family, Instructed on discharge instructions, follow up and referral plans. no drinking with medication, no driving heavy equipment, medication usage, safety practices, Demonstrated understanding of instructions, follow-up care, medications, Prescriptions given X 2, 04:03 Patient left the ED. bm8 Signatures: Dispatcher [employer] EDMS Leon Lowery, RN RN jb4 Bebo Cummings MD MD rt Apple Mistry Brad, RN RN bm8
[2024-11-11] MEDS ORDERED: MORPHINE 2 MG/ML SYR ONE (03:46)
[2024-11-11 04:28] VITALS: BP 126/80; TEMP 97; O2SAT 98
--- NOTE | 2024-11-11 06:11 | RAD REPORT ---
EXAM: XR Left Shoulder Complete, 2 or More Views CLINICAL HISTORY: PAIN TECHNIQUE: Two or more views of the left shoulder. COMPARISON: XR Shoulder dated 05/25/2024 FINDINGS: Bones/joints: Total reverse shoulder arthroplasty hardware again demonstrated. Progressive heteroto pic ossification along the proximal lateral margin of the humeral prosthesis and the glenoid. No acute fracture. No dislocation. Soft tissues: Surgical clips project over the chest. IMPRESSION: 1. No acute injury. 2. Total reverse shoulder arthroplasty hardware with progressive heterotopic ossification along the proximal lateral margin of the humeral prosthesis and the glenoid. Electronically signed by: Hayley Bernstein MD 11/11/2024 03:26 AM CDT Due to temporary technical issues with the PACS/[employer] reporting system, reports are being jac d by the in-house radiologist without review as a courtesy to ensure prompt reporting the interpreting radiologist is fully responsible for the content of the report. Transcribed Date/Time: 11/11/2024 6:11 AM
== END 2024-11-11 04:03 | disposition home or self-care (01) ==
LOC: ER 00:40
DX: R10.84 Generalized abdominal pain (principal); R11.2 Nausea with vomiting, unspecified; M25.512 Pain in left shoulder; W01.0XXA Fall on same level from slipping, tripping and stumbling without subsequent striking against object, initial encounter; Z96.612 Presence of left artificial shoulder joint; Z94.4 Liver transplant status
CPT/HCPCS: 96361; 85025; 36415; 83690; 80053; 74176; 73030; 96375; 96374; 99284; J2270; J2405; J7030

== ENCOUNTER 2024-11-22 20:07 | Emergency (ER) | payer OTHER ==
[2024-11-22 20:52] LABS: Absolute Eosinophils 0.1 K/uL (0-0.5); Absolute Lymphocytes (CBC) 1.3 K/uL (0.7-4.9); Absolute Monocytes 0.5 K/uL (0.1-1.3); Basophils % 0.1 % (0-1.3); Eosinophils % 1.1 % (0-4.4); Hematocrit 36.1 % (36.0-45.0); Hemoglobin 12.4 g/dL (12.0-15.0); MCH 32.2 pg (27.0-35.0); MCHC 34.3 g/dL (32.0-36.0); MCV 94.1 fL (80-100); MPV 8.8 fL (7.6-11.3); Monocytes % 8.7 % (3.3-12.3); Neutrophils % 68.1 % (41.7-73.7); Nucleated Red Blood Cells % 0.6 % (0-0); Platelets 135 thou/uL (152-406); RBC Red Blood Cell Count 3.83 M/uL (3.86-4.86); Red Cell Distribution Width 18.8 % (12.1-15.2)
[2024-11-22 21:04] LABS: Albumin 2.4 g/dL (3.4-5.0); Albumin/Globulin Ratio 0.9 (1.1-1.8); Anion Gap 6.1 mEq/L (5.0-15.0); Bilirubin Total 0.8 mg/dL (0.2-1.0); Globulin 2.8 g/dL (2.3-3.5); Potassium 4.1 mEq/L (3.5-5.1); Protein, Total 5.2 g/dL (6.4-8.2)
--- NOTE | 2024-11-22 21:38 | RAD REPORT ---
EXAMINATION: CT Abdomen Pelvis Wo Contrast CLINICAL INDICATION: Female, 64 years old. ABD PAIN TECHNIQUE: CT abdomen and pelvis was performed, without IV contrast, as per department protocol. Axia l, sagittal and coronal reconstructions were obtained. One or more of the following dose reduction techniques were used: Automated exposure control, adjustment of the mA and kV according to the patien t size, and iterative reconstruction. Unless otherwise specified, incidental findings do not require dedicated imaging follow-up. COMPARISON: 11/11/2024 FINDINGS: The lack of intravenous contrast limits the sensitivity of this exam for evaluation of solid visceral organs, vascular structures, and retroperitoneum. LOWER CHEST: Small right layering pleural effusion. LIVER: Normal in size and contour. Diffuse parenchymal hypoattenuation suggesting steatosis. No focal lesion. BILIARY SYSTEM: Status post cholecystectomy. SPLEEN: Bulky appearance of the spleen again seen, although not discretely enlarged in long axis. No focal lesion. PANCREAS: No mass, ductal dilation, or yokasta-pancreatic fluid. ADRENALS: Normal; no mass. KIDNEYS AND URETERS: Bilateral atrophic changes. Small cyst of the right upper pole, stable. 3 mm non obstructing right upper to midpole calculus. Parenchymal calcification near the left lower pole again seen. No hydronephrosis. URINARY BLADDER: Decompressed limiting evaluation. GASTROINTESTINAL TRACT: Diffuse wall thickening along the colon, some sparing the hepatic flexure and segments of the sigmoid colon. Mild fat stranding most notably along the right paracolic gutter. Sequelae of ileocolic anastomosis and hernia mesh repair again seen. No evidence of bowel obstruction , significant free fluid, free air or abscess. APPENDIX: Appendix not visualized, but no inflammatory changes in region of appendix. LYMPH NODES: No lymphadenopathy. MUSCULOSKELETAL: No acute or suspicious osseous abnormality. ADDITIONAL FINDINGS: Nodular soft tissue density in the presacral region measuring 3.1 cm, stable and nonspecific, could represent an inclusion cyst, tumor of fibrous or neural origin, or other neoplastic process. IMPRESSION: No small layering right pleural effusion. Diffuse wall thickening involving most of the colon as above, concerning for infectious or inflammato ry colitis. Stable findings including hepatic steatosis. No other acute or concerning abnormalities in the abdomen or pelvis, with evaluation limited by lack of IV contrast.
--- NOTE | 2024-11-22 21:44 | RAD REPORT ---
EXAMINATION: CT Thorax Wo Con CLINICAL INDICATION: Female, 64 years old. [facility] MAIN PAIN Y TECHNIQUE: Axial CT scan of the chest without intravenous contrast. Multiplanar reformats were genera barron and reviewed. One or more of the following dose reduction techniques were used: Automated exposure control, adjustment of the mA and/or kV according patient size, and/or iterative reconstruct ion. Unless otherwise specified, incidental findings do not require dedicated imaging follow-up. COMPARISON: No prior exam. FINDINGS: LOWER NECK: Visualized thyroid gland and soft tissues are normal. LUNGS: The lungs are clear. No evidence of airspace or interstitial process. No worrisome nodules. PLEURA: Small layering right pleural effusion.. No pneumothorax. . MEDIASTINUM AND LYMPH NODES: Trace pericardial effusion. No mediastinal mass or fluid collection. Nor mal size mediastinal, hilar, and axillary lymph nodes. OSSEOUS STRUCTURES AND CHEST WALL: No acute osseous abnormality. Callus formation along the anterior right fourth, fifth, and sixth ribs, suggesting healing fractures. Sequelae of left axillary dissection. UPPER ABDOMEN: Separately evaluated on CT abdomen and pelvis of the same day. IMPRESSION: Small layering right pleural effusion. Healing right fourth, fifth, and sixth rib fractures. Examinat ion is limited by lack of contrast.
[2024-11-22] MEDS ORDERED: ONDANSETRON 4 MG/2 ML VIAL ONE (22:01)
[2024-11-22] MEDS ORDERED: MORPHINE 4 MG/ML SYR ONE (22:02)
--- NOTE | 2024-11-23 00:11 | EDPHYS ---
Physician Documentation [facility] Name: Bella Barron Age: 64 yrs Sex: Female : 1960 Arrival Date: 11/22/2024 Time: 20:07 Bed 7 Private MD: ED Physician Jonathon Jeter HPI: 11/23 01:24 This 64 yrs old Female presents to ER via EMS with complaints of Abdominal dr5 Pain. 01:31 This 64 yrs old Female presents to ER via EMS with complaints of Abdominal dr5 Pain. :31 Onset: The symptoms/episode began/occurred last week. Patient is a 63-year-old female dr5 with history of Crohn's disease, hypertension, kidney disease, liver transplant coming in with abdominal pain for the past week and diarrhea. Patient reports that she has not tried other medications. Patient denies any any sick contacts with similar abdominal pain.. Historical: - Allergies: 11/22 21:22 ceftriaxone; bm8 21:22 Ciprofloxacin; bm8 21:22 Egg Derived; bm8 21:22 Iodine; bm8 21:22 LACTASE; bm8 21:22 Promethazine; bm8 - Home Meds: 21:22 Unable to obtain [Active]; bm8 - PMHx: 21:22 cirrhosis of liver; Crohn's Disease; hypotension; kidney disease; Liver transplant (Jul); trach removed Jun 2022; - PSHx: 21:22 bowel resection; Cholecystectomy; Colectomy; left shoulder replacement; liver bm8 transplant; - Immunization history:: Adult Immunizations up to date. - Infectious Disease History:: Denies. - Social history:: Smoking status: Patient denies any tobacco usage or history of. ROS: 11/23 01:31 Constitutional: as per hpi dr5 Exam: :31 Constitutional: This is a well developed, well nourished patient who is awake, alert, dr5 and in no acute distress. Head/Face: Normocephalic, atraumatic. Eyes: Pupils equal round and reactive to light, extra-ocular motions intact. Lids and lashes normal. Conjunctiva and sclera are non-icteric and not injected. Cornea within normal limits. Periorbital areas with no swelling, redness, or edema. Chest/axilla: Normal chest wall appearance and motion. Nontender with no deformity. No lesions are appreciated. Cardiovascular: Regular rate and rhythm with a normal S1 and S2. Normal PMI, no JVD. No pulse deficits. Respiratory: Lungs have equal breath sounds bilaterally, clear to auscultation. No rales, rhonchi or wheezes noted. No increased work of breathing, no retractions or nasal flaring. Abdomen/GI: Soft, non-tender, non-distended Back: No spinal tenderness. No costovertebral tenderness. Full range of motion. Skin: Warm, dry with normal turgor. Normal color with no rashes, no lesions, and no evidence of cellulitis. Neuro: Awake and alert, GCS 15, oriented to person, place, time, and situation. Cranial nerves II-XII grossly intact. Motor strength 5/5 in all extremities. Sensory grossly intact. Cerebellar exam normal. Normal gait. Vital Signs: 11/22 20:10 BP 128 / 108; Pulse 89; Resp 18; Temp 98.2; Pulse Ox 100% ; Weight 52.16 kg; Pain 10/10;bm8 21:24 BP 137 / 100; Pulse 82; Resp 18; Temp 98.1; Pulse Ox 100% ; Pain 10/10; bm8 22:18 BP 147 / 88; Pulse 87; Resp 18; Temp 98.1; Pulse Ox 99% ; Pain 9/10; bm8 11/23 00:00 BP 162 / 100; Pulse 85; Resp 18; Temp 98.1; Pulse Ox 100% ; Pain 10/10; bm8 11/22 20:10 Pain Scale: Adult bm8 21:24 Pain Scale: Adult bm8 22:18 Pain Scale: Adult bm8 11/23 00:00 Pain Scale: Adult bm8 [place] Coma Score: 11/22 21:24 Eye Response: spontaneous(4). Motor Response: obeys commands(6). Verbal Response: bm8 oriented(5). Total: 15. 22:18 Eye Response: spontaneous(4). Motor Response: obeys commands(6). Verbal Response: bm8 oriented(5). Total: 15. 11/23 00:00 Eye Response: spontaneous(4). Motor Response: obeys commands(6). Verbal Response: bm8 oriented(5). Total: 15. MDM: 11/22 20:15 Medical Screening Exam initiated dr5 11/23 01:31 Data reviewed: vital signs, nurses notes. I considered the following discharge dr5 prescriptions or medication management in the emergency department Medications were administered in the Emergency Department. See MAR. Care significantly affected by the following chronic conditions: Liver transplant, kidney disease, Crohn disease. Care significantly affected by the following Social Determinants of Health: Poor access to healthcare and/or lack of insurance, Poor access to transportation, Problems related to employment. Counseling: I had a detailed discussion with the patient and/or guardian regarding the historical points, exam findings, and any diagnostic results supporting the discharge/admit diagnosis, the presence of at least one elevated blood pressure reading (>120/80) during this emergency department visit, lab results, radiology results, the need for outpatient follow up, for definitive care, a family practitioner, to return to the emergency department if symptoms worsen or persist or if there are any questions or concerns that arise at home. Medication response: ED course: Patient reports she is feeling much better. Will give Augmentin for colitis. Patient's reexamination of abdomen was unremarkable and benign. Will have patient follow-up primary care doctor this next week. All questions answered.. 11/22 20:15 Order name: CBC with Diff; Complete Time: 21:04 dr5 11/22 20:15 Order name: CMP; Complete Time: 21:04 dr5 11/22 20:15 Order name: Lipase; Complete Time: 21:04 dr5 11/22 20:15 Order name: CT Abd/Pelvis - Without Contrast; Complete Time: 21:45 dr5 11/22 20:42 Order name: Thorax Wo Con; Complete Time: 21:45 EDMS 11/22 20:15 Order name: IV Saline Lock; Complete Time: 20:38 dr5 11/22 20:15 Order name: Labs collected and sent; Complete Time: 20:38 dr5 Administered Medications: 11/22 22:12 Drug: morphine IVP or IV 4 mg IVP once over 4 mins Route: IVP; Infused Over: 4 mins; bm8 Site: right antecubital; 22:19 Follow up: Response: No adverse reaction bm8 22:12 Drug: Ondansetron IVP 4 mg IVP once; over 2 minutes Route: IVP; Site: right antecubital;bm8 22:19 Follow up: Response: No adverse reaction bm8 Disposition: 11/23 20:13 Co-signature as Attending Physician, Jonathon Jeter MD I agree with the assessment sp4 and plan of care. I reviewed the patient's care provided by the Advanced Practice Provider and agree with the diagnosis and treatment plan. Disposition Summary: 11/23/24 00:10 Discharge Ordered Notes: Location: Home dr5 Condition: Stable dr5 Diagnosis - Other specified noninfective gastroenteritis and colitis dr5 Followup: dr5 - With: Emergency Department - When: As needed - Reason: Worsening of condition Followup: dr5 - With: Private Physician - When: 1 - 2 days - Reason: Recheck today's complaints, Continuance of care, Re-evaluation by your physician Discharge Instructions: - Discharge Summary Sheet dr5 - Colitis dr5 Forms: - Medication Reconciliation Form dr5 - Antibiotic Education dr5 - Patient Portal Instructions dr5 - Leadership Thank You Letter dr5 Prescriptions: - Augmentin 875-125 mg Oral Tablet - take 1 tablet ORAL route every 12 hours for 10 days; 20 tablet; Refills: 0, dr5 Product Selection Permitted Signatures: Dispatcher [employer] EDJonathon Gonzalez MD MD sp4 Domenic Dawson, RN RN bm8 Cesar Augustin, FIELD COLLECTOR-C FIELD COLLECTOR-Cdr5 Corrections: (The following items were deleted from the chart) 11/22 21:22 21:22 Home Meds: None; murray gao
--- NOTE | 2024-11-23 00:11 | ER ---
Nurse's Notes [facility] Name: Bella Barron Age: 64 yrs Sex: Female : 1960 Arrival Date: 11/22/2024 Time: 20:07 Bed 7 Private MD: Diagnosis: Other specified noninfective gastroenteritis and colitis Presentation: 11/22 20:10 Chief complaint: Patient states: i have bad abd pain. Coronavirus screen: At this time, bm8 the client does not indicate any symptoms associated with coronavirus-19. Ebola Screen: Patient negative for fever greater than or equal to 101.5 degrees Fahrenheit, and additional compatible Ebola Virus Disease symptoms Patient denies exposure to infectious person. Patient denies travel to an Ebola-affected area in the 21 days before illness onset. No symptoms or risks identified at this time. 20:10 Method Of Arrival: EMS: [facility] bm8 20:10 Initial Sepsis Screen: Does the patient meet any 2 criteria? No. Patient's initial bm8 sepsis screen is negative. Does the patient have a suspected source of infection? No. Patient's initial sepsis screen is negative. 20:10 Risk Assessment: Do you want to hurt yourself or someone else? Patient reports no bm8 desire to harm self or others. Onset of symptoms is unknown. 20:10 Acuity: OLEG 3 bm8 Triage Assessment: 20:10 General: Appears in no apparent distress. uncomfortable, Behavior is calm, cooperative, bm8 appropriate for age. Pain: Complains of pain in suprapubic area, right lower quadrant and left lower quadrant Pain currently is 10 out of 10 on a pain scale. EENT: No deficits noted. No signs and/or symptoms were reported regarding the EENT system. Neuro: No deficits noted. Level of Consciousness is awake, alert, obeys commands, Oriented to person, place, time, situation, Appropriate for age. Cardiovascular: Denies chest pain, Capillary refill < 3 seconds in bilateral fingers Patient's skin is warm and dry. Respiratory: Airway is patent Respiratory effort is even, unlabored, Respiratory pattern is regular, symmetrical, Breath sounds are clear bilaterally. 20:10 GI: Abdomen is flat, non-distended, Bowel sounds present X 4 quads. Reports lower bm8 abdominal pain, nausea, Pain is 10 out of 10 on a pain scale. : No signs and/or symptoms were reported regarding the genitourinary system. Derm: No signs and/or symptoms reported regarding the dermatologic system. Musculoskeletal: No signs and/or symptoms reported regarding the musculoskeletal system. Historical: - Allergies: 21:22 ceftriaxone; bm8 21:22 Ciprofloxacin; bm8 21:22 Egg Derived; bm8 21:22 Iodine; bm8 21:22 LACTASE; bm8 21:22 Promethazine; bm8 - Home Meds: 21:22 Unable to obtain [Active]; bm8 - PMHx: 21:22 cirrhosis of liver; Crohn's Disease; hypotension; kidney disease; Liver transplant (Jul); trach removed Jun 2022; - PSHx: 21:22 bowel resection; Cholecystectomy; Colectomy; left shoulder replacement; liver bm8 transplant; - Immunization history:: Adult Immunizations up to date. - Infectious Disease History:: Denies. - Social history:: Smoking status: Patient denies any tobacco usage or history of. Screenin:24 [facility] ED Fall Risk Assessment (Adult) History of falling in the last 3 months, bm8 including since admission No falls in past 3 months (0 pts) Confusion or Disorientation No (0 pts) Intoxicated or Sedated No (0 pts) Impaired Gait Yes (1 pt) Mobility Assist Device Used No (0 pt) Altered Elimination No (0 pt) Score/Fall Risk Level 0 - 2 = Low Risk Oriented to surroundings, Maintained a safe environment, Educated pt \T\ family on fall prevention, incl call for assistance when getting out of bed, Assessed \T\ reinforced patient's understanding of fall precautions, Hourly rounding (assess needs \T\ fall precautionary measures) done, Used ambulatory aids as needed (educated on \T\ assisted with), Used gait belt as appropriate. Abuse screen: Denies threats or abuse. Nutritional screening: No deficits noted. Tuberculosis screening: No symptoms or risk factors identified. Assessment: 20:11 Reassessment: see triage assessment. bm8 21:24 Reassessment: No changes from previously documented assessment. bm8 22:18 Reassessment: Patient appears in no apparent distress at this time. Patient and/or bm8 family updated on plan of care and expected duration. Pain level reassessed. Patient is alert, oriented x 3, equal unlabored respirations, skin warm/dry/pink. 11/23 00:00 Reassessment: Patient appears in no apparent distress at this time. No changes from bm8 previously documented assessment. Patient and/or family updated on plan of care and expected duration. Pain level reassessed. Patient is alert, oriented x 3, equal unlabored respirations, skin warm/dry/pink. Reassessment: pt states that pain is not improved at all . Pain: Complains of pain in abdomen Pain currently is 9 out of 10 on a pain scale. Vital Signs: 11/22 20:10 BP 128 / 108; Pulse 89; Resp 18; Temp 98.2; Pulse Ox 100% ; Weight 52.16 kg; Pain 10/10;bm8 21:24 BP 137 / 100; Pulse 82; Resp 18; Temp 98.1; Pulse Ox 100% ; Pain 10/10; bm8 22:18 BP 147 / 88; Pulse 87; Resp 18; Temp 98.1; Pulse Ox 99% ; Pain 9/10; bm8 11/23 00:00 BP 162 / 100; Pulse 85; Resp 18; Temp 98.1; Pulse Ox 100% ; Pain 10/10; bm8 11/22 20:10 Pain Scale: Adult bm8 21:24 Pain Scale: Adult bm8 22:18 Pain Scale: Adult bm8 11/23 00:00 Pain Scale: Adult bm8 Yojana Coma Score: 11/22 21:24 Eye Response: spontaneous(4). Motor Response: obeys commands(6). Verbal Response: bm8 oriented(5). Total: 15. 22:18 Eye Response: spontaneous(4). Motor Response: obeys commands(6). Verbal Response: bm8 oriented(5). Total: 15. 11/23 00:00 Eye Response: spontaneous(4). Motor Response: obeys commands(6). Verbal Response: bm8 oriented(5). Total: 15. ED Course: 11/22 20:10 Patient arrived in ED. im 20:10 Arm band placed on right wrist. bm8 20:14 Cesar Augustin [facility]-C [facility]. dr5 20:14 Jonathon Jeter MD is Attending Physician. dr5 20:20 Inserted saline lock: 24 gauge in right antecubital area, using aseptic technique. ha1 Blood collected. Flushed with 10 mL NS. 20:45 CT Abd/Pelvis - Without Contrast In Process Unspecified. EDMS 20:45 Thorax Wo Con In Process Unspecified. EDMS 21:18 Domenic Dawson, RN is Primary Nurse. bm8 21:22 Triage completed. bm8 21:24 No provider procedures requiring assistance completed. bm8 21:24 Patient has correct armband on for positive identification. Bed in low position. Call bm8 light in reach. Side rails up X2. Adult w/ patient. Client placed on continuous cardiac and pulse oximetry monitoring. NIBP monitoring applied. Pulse ox on. NIBP on. Door closed. Noise minimized. Warm blanket given. Pillow given. Verbal reassurance given. Head of bed elevated. 21:25 Initial lab(s) drawn, by ED staff, sent to lab. bm8 11/23 00:26 IV discontinued, intact, bleeding controlled, No redness/swelling at site. Pressure bm8 dressing applied. 00:27 Provided Education on: post er care, follow up with PCP. bm8 Administered Medications: 11/22 22:12 Drug: morphine IVP or IV 4 mg IVP once over 4 mins Route: IVP; Infused Over: 4 mins; bm8 Site: right antecubital; 22:19 Follow up: Response: No adverse reaction bm8 22:12 Drug: Ondansetron IVP 4 mg IVP once; over 2 minutes Route: IVP; Site: right antecubital;bm8 22:19 Follow up: Response: No adverse reaction bm8 Medication: 21:24 VIS not applicable for this client. bm8 Outcome: 11/23 00:10 Discharge ordered by . miguel 00:26 Discharged to home via wheelchair, bm8 00:26 Condition: stable 00:26 Discharge instructions given to patient, family, Instructed on discharge instructions, follow up and referral plans. no drinking with medication, no driving heavy equipment, medication usage, safety practices, Demonstrated understanding of instructions, follow-up care, medications, Prescriptions given X 1, 00:27 Patient left the ED. bm8 Signatures: Dispatcher [employer] EDMS Екатерина Smart RN RN ha1 Apple Mistry Brad, RN RN bm8 Cesar Augustin, ORACLE EBS ARCHITECT-C ORACLE EBS ARCHITECT-Cdr5 Corrections: (The following items were deleted from the chart) 11/22 21:18 Chief complaint: Patient states: i have bad abd pain bm8 bm8 : 21:18 Coronavirus screen: At this time, the client does not indicate any symptoms bm8 associated with coronavirus-19. bm8 : 21:18 Ebola Screen: Patient negative for fever greater than or equal to 101.5 degrees bm8 Fahrenheit, and additional compatible Ebola Virus Disease symptoms Patient denies exposure to infectious person. Patient denies travel to an Ebola-affected area in the 21 days before illness onset. No symptoms or risks identified at this time. bm8 21:18 Method Of Arrival: EMS: [facility] bm8 bm8 : 21:18 BP 128 / 108; Pulse 89bpm; Resp 18bpm; Pulse Ox 100%; Temp 98.2F; 52.16 kg; Pain bm8 05/21, Adult; bm8 : 21:22 Home Meds: None; bm8 bm8
[2024-11-23 00:41] VITALS: TEMP 98.1
[2024-11-23 00:44] VITALS: BP 162/100; O2SAT 100
== END 2024-11-23 00:27 | disposition home or self-care (01) ==
LOC: ER 20:07
DX: K52.89 Other specified noninfective gastroenteritis and colitis (principal); Z94.4 Liver transplant status
CPT/HCPCS: 85025; 36415; 83690; 80053; 71250; 74176; 96375; 96374; 99284; J2405

== ENCOUNTER 2024-12-20 00:59 | Emergency (ER) | payer OTHER ==
[2024-12-20 02:13] LABS: Absolute Eosinophils 0.1 K/uL (0-0.5); Absolute Lymphocytes (CBC) 0.9 K/uL (0.7-4.9); Absolute Monocytes 0.4 K/uL (0.1-1.3); Basophils % 0.6 % (0-1.3); Eosinophils % 1.2 % (0-4.4); Hematocrit 34.5 % (36.0-45.0); Hemoglobin 12.1 g/dL (12.0-15.0); MCHC 35.1 g/dL (32.0-36.0); MCV 94.1 fL (80-100); MPV 8.3 fL (7.6-11.3); Monocytes % 8.1 % (3.3-12.3); Neutrophils % 69.1 % (41.7-73.7); Nucleated Red Blood Cells % 0.1 % (0-0); Platelets 165 thou/uL (152-406); RBC Red Blood Cell Count 3.67 M/uL (3.86-4.86)
[2024-12-20] MEDS ORDERED: NA CHLORIDE 0.9% 500 ML ONE ×2 (02:23→07:22)
[2024-12-20] MEDS ORDERED: ONDANSETRON 4 MG/2 ML VIAL ONE (02:35)
[2024-12-20] MEDS ORDERED: MORPHINE 2 MG/ML SYR ONE (02:35)
[2024-12-20 02:57] LABS: Albumin 2.5 g/dL (3.4-5.0); Albumin/Globulin Ratio 0.8 (1.1-1.8); Anion Gap 14.1 mEq/L (5.0-15.0); Globulin 3.3 g/dL (2.3-3.5); Potassium 5.1 mEq/L (3.5-5.1); Protein, Total 5.8 g/dL (6.4-8.2)
--- NOTE | 2024-12-20 05:18 | ER ---
Nurse's Notes [facility] Name: Bella Barron Age: 64 yrs Sex: Female : 1960 Arrival Date: 12/20/2024 Time: 00:59 Bed 7 Private MD: Diagnosis: Abnormal results of liver function studies;Liver transplant status;Abdominal pain, unspecified Presentation: 12/20 01:21 Chief complaint: Patient states: BUTT HURTS DUE TO DIAPER RASH. ha1 01:21 Coronavirus screen: Client denies travel out of the [place] in the last 14 days. Ebola ha1 Screen: No symptoms or risks identified at this time. Initial Sepsis Screen: Does the patient meet any 2 criteria? No. Patient's initial sepsis screen is negative. Does the patient have a suspected source of infection? No. Patient's initial sepsis screen is negative. Risk Assessment: Do you want to hurt yourself or someone else? Patient reports no desire to harm self or others. Onset of symptoms was December 20, 2024. 01:21 Method Of Arrival: Wheelchair ha1 01:21 Acuity: OLEG 5 ha1 07:18 Acuity: OLEG 3 ha1 Triage Assessment: 01:21 General: Appears uncomfortable, Behavior is calm, cooperative. Pain: Complains of pain ha1 in buttocks Pain currently is 5 out of 10 on a pain scale. Quality of pain is described as burning. Neuro: Level of Consciousness is awake, alert, obeys commands, Oriented to person, place, time, situation. Cardiovascular: Capillary refill < 3 seconds. Respiratory: Airway is patent Respiratory effort is even, unlabored, Respiratory pattern is regular, symmetrical. GI: Abdomen is round non-distended. : Reports DIAPER RASH. Derm: Skin is fragile. 01:21 Musculoskeletal: Circulation, motion, and sensation intact. ha1 Historical: - Allergies: 01:31 ceftriaxone; ha1 01:31 Ciprofloxacin; ha1 :31 Egg Derived; ha1 01:31 Iodine; ha1 01:31 LACTASE; ha1 01:31 Promethazine; ha1 - PMHx: 01:31 cirrhosis of liver; Crohn's Disease; hypotension; kidney disease; Liver transplant (Jul); trach removed Jun 2022; - PSHx: 01:31 bowel resection; Cholecystectomy; Colectomy; left shoulder replacement; liver ha1 transplant; - Immunization history:: Adult Immunizations up to date. - Infectious Disease History:: Denies. - Social history:: Smoking status: Patient reports the use of cigarette tobacco products, smokes one pack cigarettes per day. Screenin:00 [facility] ED Fall Risk Assessment (Adult) History of falling in the last 3 months, ha1 including since admission Yes- fall prone (multiple falls) (3 pts) Confusion or Disorientation Yes (5 pts) Intoxicated or Sedated No (0 pts) Impaired Gait Yes (1 pt) Mobility Assist Device Used Yes (1 pt) Altered Elimination Yes (1 pt) Score/Fall Risk Level 3 or more points = High Risk Oriented to surroundings, Maintained a safe environment, Educated pt \\T\\ family on fall prevention, incl call for assistance when getting out of bed, Hourly rounding (assess needs \\T\\ fall precautionary measures) done. Abuse screen: Denies threats or abuse. Denies injuries from another. Nutritional screening: No deficits noted. Tuberculosis screening: No symptoms or risk factors identified. Assessment: 01:21 Reassessment: SEE TRIAGE ASSESSMENT. ha1 02:30 Reassessment: PATIENT REFUSED TO PROVIDE URINE SAMPLE. PROVIDED EDUCATION ON STRAIGHT ha1 CATH OR BEDSIDE COMMODE PATIENT STATES " NO I AM NOT GIVING YOU A URINE SAMPLE". 03:30 Reassessment: Patient and/or family updated on plan of care and expected duration. Pain ha1 level reassessed. 04:30 Reassessment: Patient and/or family updated on plan of care and expected duration. Pain ha1 level reassessed. Respiratory: Airway is patent Respiratory effort is even, unlabored, Respiratory pattern is regular, symmetrical. 05:35 Reassessment: Patient and/or family updated on plan of care and expected duration. Pain ha1 level reassessed. WARM BLANKETS PROVIDED. 06:40 Reassessment: Patient and/or family updated on plan of care and expected duration. Pain ha1 level reassessed. 07:19 General: Appears uncomfortable, Behavior is cooperative. Pain: Complains of pain in ha1 buttocks and abdomen. Neuro: Level of Consciousness is awake, obeys commands, Oriented to person, place. Cardiovascular: Patient's skin is warm and dry. Respiratory: Airway is patent. GI: Reports lower abdominal pain, diarrhea. : No signs and/or symptoms were reported regarding the genitourinary system. EENT: No signs and/or symptoms were reported regarding the EENT system. Derm: Rash noted that is red, on buttocks. Musculoskeletal: Range of motion: intact in all extremities. 08:31 Reassessment: Report called to AMARILIS Aponte at [facility]. ph Vital Signs: 01:21 BP 119 / 66; Pulse 87; Resp 19 S; Temp 97.6(O); Pulse Ox 96% on R/A; Weight 44.91 kg; ha1 Height 4 ft. 11 in. ; 03:15 BP 128 / 99; Pulse 78; Resp 16 S; Pulse Ox 98% on R/A; ha1 04:30 BP 123 / 91; Pulse 72; Resp 17 S; Pulse Ox 98% on 2 lpm NC; ha1 05:40 BP 133 / 95; Pulse 79; Resp 18 S; Pulse Ox 98% on 2 lpm NC; ha1 06:45 BP 110 / 97; Pulse 76; Resp 18 S; Pulse Ox 97% on 2 lpm NC; ha1 07:40 BP 128 / 83; Pulse 75; Resp 18; Pulse Ox 98% on R/A; mb9 09:02 BP 132 / 90; Pulse 84; Resp 18; Temp 97.6; Pulse Ox 98% on R/A; ph 01:21 Body Mass Index 20.00 (44.91 kg, 149.86 cm) ha1 ED Course: 01:04 Patient arrived in ED. gm2 01:21 Patient has correct armband on for positive identification. Placed in gown. Bed in low ha1 position. Call light in reach. Side rails up X 1. Provided Education on: PLAN OF CARE . 01:21 Client placed on continuous cardiac and pulse oximetry monitoring. NIBP monitoring ha1 applied. 01:21 Arm band placed on right wrist. ha1 01:24 James Busby PA is PHCP. cp 01:24 James Rossi MD is Attending Physician. cp 01:49 Triage completed. ha1 02:15 Екатерина Smart RN is Primary Nurse. ha1 02:15 CMP Sent. ha1 02:15 Lipase Sent. ha1 02:19 Inserted saline lock: 22 gauge in right antecubital area, using aseptic technique. oe Flushed with 10 mL NS. 03:49 CT Abd/Pelvis - Without Contrast In Process Unspecified. EDMS 05:40 waited on hold for 40mins, Initiated transfer with Gt \\Bakari\\ [place]. kmf 06:15 Blood Culture Adult (2) Sent. oe 06:15 Lactate w/ 2H reflex if indic. Sent. oe 06:15 Ptt, Activated Sent. oe 06:15 PT-INR Sent. oe 06:15 Acetaminophen Sent. oe 06:15 AMMONIA Sent. oe 06:58 Carmen from the [facility] transfer center called to decline the patient in transfer due eb to capacity. 06:59 initiated a transfer with Meek from the [facility] transfer [place]. eb 07:25 Attending Physician role handed off by James Rossi MD rn 07:25 Beau Encarnacion MD is Attending Physician. rn 07:49 connected the drugless physician and hospitalist director of operations for therapy for [facility] with Dr. Encarnacion eb for patient transfer consultation. 08:04 Door closed. Noise minimized. Warm blanket given. Pillow given. Repositioned patient. mb9 Cleaned of incontinence. 08:32 No provider procedures requiring assistance completed. Patient transferred, IV remains ph in place. Administered Medications: 02:28 Drug: NS 0.9% IV 500 ml 500 ml IV at 1 bolus once; to be given as a bolus over 60 ha1 minutes Volume: 500 ml; Route: IV; Rate: 1 bolus; Site: right antecubital; 07:03 Follow up: Response: No adverse reaction; IV Status: Completed infusion ha1 02:39 Drug: Ondansetron IVP 4 mg IVP once; over 2 minutes Route: IVP; Site: right antecubital;ha1 03:00 Follow up: Response: No adverse reaction ha1 02:42 Drug: morphine IVP or IV 2 mg IVP once over 4 mins Route: IVP; Infused Over: 4 mins; ha1 Site: right antecubital; 03:00 Follow up: Response: No adverse reaction; Pain is decreased; RASS: Alert and Calm (0) ha1 06:14 Drug: Piperacillin-Tazobactam IVPB 3.375 grams IVPB once over 60 mins; (mix in NS 100 ha1 mL) Route: IVPB; Infused Over: 60 mins; Site: right antecubital; 07:00 Follow up: Response: No adverse reaction; IV Status: Completed infusion ha1 07:28 Drug: NS 0.9% IV 500 ml 500 ml IV at 1 bolus once; to be given as a bolus over 30 ha1 minutes Volume: 500 ml; Route: IV; Rate: 1 bolus; Site: right antecubital; 08:00 Follow up: Response: No adverse reaction; IV Status: Completed infusion; IV Intake: ph 500ml Medication: 03:34 VIS not applicable for this client. ha1 Intake: 08:00 IV: 500ml; Total: 500ml. ph Outcome: 05:18 ER care complete, transfer ordered by . onel 09:02 Transferred by ground EMS [place] . to [facility], [facility], Transfer ph form completed. X-rays sent w/ patient. 09:02 Condition: stable 09:02 Instructed on the need for transfer, 09:03 Patient left the ED. ph Signatures: Dispatcher [employer] EDMS Beau Encarnacion MD MD rn Hall, Patricia, RN RN ph James Busby PA PA cp Espinosa, Orlando oe Botello, Elizabeth eb Ayala, Heidy, RN RN ha1 Mary Ann Roberts RN RN [id number] Halima Deleon Kelsey Maroul [facility]
--- NOTE | 2024-12-20 05:18 | EDPHYS ---
Physician Documentation [facility] Name: Bella Barron Age: 64 yrs Sex: Female : 1960 Arrival Date: 12/20/2024 Time: 00:59 Bed 7 Private MD: ED Physician Beau Encarnacion HPI: 12/20 01:55 This 64 yrs old Female presents to ER via Wheelchair with complaints of Bottom pain. cp 01:55 The patient presents with abdominal pain. cp 01:55 Onset: The symptoms/episode began/occurred today. cp 01:55 Associated signs and symptoms: Pertinent negatives: chest pain, constipation, fever, cp active vomiting. Historical: - Allergies: :31 ceftriaxone; ha1 01:31 Ciprofloxacin; ha1 01:31 Egg Derived; ha1 01:31 Iodine; ha1 01:31 LACTASE; ha1 01:31 Promethazine; ha1 - PMHx: 01:31 cirrhosis of liver; Crohn's Disease; hypotension; kidney disease; Liver transplant (Jul); trach removed Jun 2022; - PSHx: 01:31 bowel resection; Cholecystectomy; Colectomy; left shoulder replacement; liver ha transplant; - Immunization history:: Adult Immunizations up to date. - Infectious Disease History:: Denies. - Social history:: Smoking status: Patient reports the use of cigarette tobacco products, smokes one pack cigarettes per day. ROS: 02:00 Constitutional: Negative for body aches, chills, fever, poor PO intake, cp 02:00 Cardiovascular: Negative for chest pain, palpitations, cp 02:00 Respiratory: Negative for cough, shortness of breath, wheezing, 02:00 Abdomen/GI: Positive for abdominal pain, 02:00 Neuro: Negative for headache, 02:00 All other systems are negative, Exam: 02:05 Constitutional: The patient appears in no acute distress, alert, awake, non-toxic, well cp developed, frail, uncomfortable, 02:05 Head/Face: Normocephalic, atraumatic. cp 02:05 Eyes: Periorbital structures: appear normal, Conjunctiva: normal, no exudate, no injection, Sclera: no appreciated abnormality, Lids and lashes: appear normal, bilaterally, 02:05 ENT: External ear(s): are unremarkable, Nose: is normal, Mouth: Lips: dry, Oral mucosa: dry, Posterior pharynx: Airway: no evidence of obstruction, patent, 02:05 Chest/axilla: Inspection: normal, 02:05 Cardiovascular: Rate: normal, Rhythm: regular, 02:05 Respiratory: the patient does not display signs of respiratory distress, Respirations: normal, no use of accessory muscles, no retractions, labored breathing, is not present, Breath sounds: are clear throughout, no decreased breath sounds, no stridor, no wheezing, 02:05 Abdomen/GI: Inspection: abdomen appears normal, Bowel sounds: active, all quadrants, Palpation: soft, in all quadrants, moderate abdominal tenderness, in the right lower quadrant, rebound tenderness, is not appreciated, 02:05 Neuro: Orientation: to person, situation, Vital Signs: 01:21 BP 119 / 66; Pulse 87; Resp 19 S; Temp 97.6(O); Pulse Ox 96% on R/A; Weight 44.91 kg; ha1 Height 4 ft. 11 in. ; 03:15 BP 128 / 99; Pulse 78; Resp 16 S; Pulse Ox 98% on R/A; ha1 04:30 BP 123 / 91; Pulse 72; Resp 17 S; Pulse Ox 98% on 2 lpm NC; ha1 05:40 BP 133 / 95; Pulse 79; Resp 18 S; Pulse Ox 98% on 2 lpm NC; ha1 06:45 BP 110 / 97; Pulse 76; Resp 18 S; Pulse Ox 97% on 2 lpm NC; ha1 07:40 BP 128 / 83; Pulse 75; Resp 18; Pulse Ox 98% on R/A; mb9 09:02 BP 132 / 90; Pulse 84; Resp 18; Temp 97.6; Pulse Ox 98% on R/A; ph 01:21 Body Mass Index 20.00 (44.91 kg, 149.86 cm) ha1 MDM: 04:00 Differential diagnosis: non-specific abd pain, pancreatitis, urinary tract infection, cp bowel obstruction, fecal impaction. 05:18 Medical Screening Exam initiated cp 07:31 ED course: Patient signed out to me by night team. Pending transfer. [facility] full and rn declined transfer due to capacity. Patient being transferred for acute kidney injury, possible UTI, liver transplant status with elevated liver function tests.. 07:58 Differential Diagnosis Anemia, Crohn's disease, abdominal pain, dehydration, acute rn kidney injury. Data reviewed: vital signs, nurses notes, lab test result(s), radiologic studies, CT scan, and as a result, I will admit patient. Counseling: I had a detailed discussion with the patient and/or guardian regarding the historical points, exam findings, and any diagnostic results supporting the discharge/admit diagnosis, lab results, radiology results, the need for further work-up and treatment in the hospital, the need to transfer to another facility. Response to treatment: the patient's symptoms have mildly improved after treatment. 12/20 01:38 Order name: UA Rfx Gabriele Cult if indicated; Complete Time: 07:03 12/20 01:52 Order name: CBC with Diff; Complete Time: 02:18 cp 12/20 02:19 Interpretation: Normal except: RBC 3.67; HCT 34.5; RDW 16.0. cp 12/20 01:52 Order name: CMP; Complete Time: 04:40 cp 12/20 04:41 Interpretation: Normal except: CL 117; CO2 18; BUN 39; CRE 2.64; GFR 20; AST 320; ALT cp 134; ALK 135; TP 5.8; ALB 2.5; A/G 0.8. 12/20 01:52 Order name: Lipase; Complete Time: 04:40 cp 12/20 04:53 Order name: AMMONIA; Complete Time: 07:53 cp 12/20 04:53 Order name: PT-INR; Complete Time: 07:03 12/20 04:53 Order name: Ptt, Activated; Complete Time: 07:03 12/20 04:53 Order name: Lactate w/ 2H reflex if indic.; Complete Time: 07:03 12/20 04:53 Order name: Blood Culture Adult (2) cp 12/20 05:04 Order name: Acetaminophen; Complete Time: 07:03 12/20 06:38 Order name: Ghost Lactate-NO COLLECT Timer EDMS 12/20 02:19 Order name: CT Abd/Pelvis - Without Contrast; Complete Time: 07:03 cp 12/20 01:52 Order name: IV Saline Lock; Complete Time: 02:21 cp 12/20 01:52 Order name: Labs collected and sent; Complete Time: 02:15 cp 12/20 07:09 Order name: Labs - recollect needed: recollect the ammonia level/ hemolyzed per tierra Nicole; Complete Time: 07:18 Administered Medications: 02:28 Drug: NS 0.9% IV 500 ml 500 ml IV at 1 bolus once; to be given as a bolus over 60 ha1 minutes Volume: 500 ml; Route: IV; Rate: 1 bolus; Site: right antecubital; 07:03 Follow up: Response: No adverse reaction; IV Status: Completed infusion ha1 02:39 Drug: Ondansetron IVP 4 mg IVP once; over 2 minutes Route: IVP; Site: right antecubital;ha1 03:00 Follow up: Response: No adverse reaction ha1 02:42 Drug: morphine IVP or IV 2 mg IVP once over 4 mins Route: IVP; Infused Over: 4 mins; ha1 Site: right antecubital; 03:00 Follow up: Response: No adverse reaction; Pain is decreased; RASS: Alert and Calm (0) ha1 06:14 Drug: Piperacillin-Tazobactam IVPB 3.375 grams IVPB once over 60 mins; (mix in NS 100 ha1 mL) Route: IVPB; Infused Over: 60 mins; Site: right antecubital; 07:00 Follow up: Response: No adverse reaction; IV Status: Completed infusion ha1 07:28 Drug: NS 0.9% IV 500 ml 500 ml IV at 1 bolus once; to be given as a bolus over 30 ha1 minutes Volume: 500 ml; Route: IV; Rate: 1 bolus; Site: right antecubital; 08:00 Follow up: Response: No adverse reaction; IV Status: Completed infusion; IV Intake: ph 500ml Disposition: :28 Co-signature as Attending Physician, Beau Encarnacion MD I reviewed the patient's care rn provided by the Advanced Practice Provider and agree with the diagnosis and treatment plan. 12/21 01:13 Chart complete. cp Disposition Summary: 12/20/24 05:18 Transfer Ordered Notes: Transfer Location: [facility] cp Reason: Higher level of care cp Condition: Stable cp Problem: new cp Symptoms: have improved cp Accepting Physician: doctor(12/20/24 09:03) ph Diagnosis - Abnormal results of liver function studies cp - Liver transplant status cp - Abdominal pain, unspecified cp Forms: - Medication Reconciliation Form cp - SBAR form cp Signatures: Dispatcher [employer] EDMS Beau Encarnacion MD MD rn María Christianson RN RN ph James Busby PA PA cp Nellie Betancur Heidy, RN RN ha1 Corrections: (The following items were deleted from the chart) 12/20 01:39 01:39 UA Rfx Gabriele Cult if indicated+U.LAB.BRZ ordered. EDMS EDMS 01:53 01:53 CBC+H.LAB.BRZ ordered. EDMS EDMS 01:53 01:53 COMPREHENSIVE METABOLIC PANEL+C.LAB.BRZ ordered. EDMS EDMS 01:53 01:53 LIPASE+C.LAB.BRZ ordered. EDMS EDMS 04:53 04:53 AMMONIA+C.LAB.BRZ ordered. EDMS EDMS 04:53 04:53 PROTIME (+INR)+COAG.LAB.BRZ ordered. EDMS EDMS 04:53 04:53 PTT, ACTIVATED+COAG.LAB.BRZ ordered. EDMS EDMS 04:53 04:53 LACTATE+C.LAB.BRZ ordered. EDMS EDMS 04:53 04:53 BLOOD CULTURE*+BA.LAB.BRZ ordered. EDMS EDMS 05:04 05:04 ACETAMINOPHEN+C.LAB.BRZ ordered. EDMS EDMS 05:22 02:05 Neuro: Orientation: to person, cp cp 06:55 06:14 Head Brain Wo Cont+CT.RAD.BRZ ordered. EDMS EDMS 09:03 05:18 doctor cp ph
[2024-12-20 05:49] LABS: Sqamous Epithelial <5 /HPF (None Seen); Urine Bacteria None Seen /HPF (<20); Urine Mucus Slight /HPF (None Seen); Urine RBC <5 /HPF (None Seen); Urine WBC <5 /HPF (<5); Urine WBC Clump Rare /HPF (None Seen)
[2024-12-20] MEDS ORDERED: NA CHLORIDE 0.9% 100 ML ONE (06:01)
[2024-12-20] MEDS ORDERED: PIPERACIL/TAZO 3.375 GM VIAL IV ONE (06:02)
[2024-12-20 06:11] LABS: Specific Gravity > 1.030 (1.005-1.030); Urine Bilirubin NEGATIVE (Negative); Urine Blood Negative (Negative); Urine Clarity Clear (Clear); Urine Color Yellow (Yellow); Urine Culture Reflex Order NOT NEEDED; Urine Glucose NEGATIVE (Negative); Urine Ketones NEGATIVE (Negative); Urine Microscopic Reflex YN NO UMIC; Urine Nitrite NEGATIVE (Negative); Urine Protein TRACE (Negative); Urine Urobilinogen Normal (Normal)
[2024-12-20 06:22] LABS: PTT, Activated Partial Thromb 37.9 SECONDS (27.2-37.4); Protime INR 1.33
--- NOTE | 2024-12-20 06:26 | RAD REPORT ---
CLINICAL HISTORY: Abdominal pain. COMPARISON: CT Abdomen Pelvis 11/22/2024. TECHNIQUE: CT ABDOMEN PELVIS WITHOUT IV CONTRAST on 12/20/2024 2:19 AM CDT This exam was performed according to our departmental dose-optimization program, which includes autom ated exposure control, adjustment of the mA and/or kV according to patient size and/or use of iterative reconstruction technique. FINDINGS: Lower lungs are clear. Abdomen: Liver is severely fatty in attenuation. Surgical clips adjacent to the medial aspect of the liver and especially along the IVC suggests prior liver transplantation. There is no biliary dilatation. Gallbladder is not seen. The pancreas and spleen are normal in appearance. Adrenal glands are normal. Kidneys are severely atrophic. There is a 2 mm mid pole right renal calculus. Upper pole right renal cyst measures 1.6 cm. Left ill-defined renal cyst measures 1.1 cm. Abdominal aorta is normal in course and caliber without aneurysm. There is no free air. There is no r etroperitoneal adenopathy. Pelvis: There are postoperative changes of the cecum. Urinary bladder is unremarkable. There is no fr ee fluid. Uterus is normal in size. Skeleton: There are no acute osseous findings. No suspicious bony lesions. IMPRESSION: No definite acute process. Right nephrolithiasis without hydronephrosis. Multiple lesions, including right Bosniak I/Bosniak II benign renal cyst measuring 1.6 cm. No follow- up imaging is recommended. JACR 2018 Sep; 264-273, Management of the Incidental Renal Mass on CT, [employer] 2020; [phone], Bosniak Classification of Cystic Renal Masses, Version 2019. Electronically signed by: Darwin Patton MD 12/20/2024 06:19 AM CDT Due to temporary technical issues with the PACS/[employer] reporting system, reports are being jac d by the in-house radiologist without review as a courtesy to ensure prompt reporting the interpreting radiologist is fully responsible for the content of the report. Transcribed Date/Time: 12/20/2024 6:26 AM
[2024-12-20 09:15] VITALS: TEMP 97.6
[2024-12-20 09:29] VITALS: O2SAT 98
[2024-12-20 09:31] VITALS: BP 132/90
== END 2024-12-20 09:03 | disposition short-term general hospital (02) ==
LOC: ER 00:59
DX: R94.5 Abnormal results of liver function studies (principal); Z94.4 Liver transplant status; F17.210 Nicotine dependence, cigarettes, uncomplicated
CPT/HCPCS: 96365; 96361; 87040 ×2; 85025; 36415; 82140; 85610; 83605 ×2; 85730; 81003; 83690; 80053; 74176; 96375; 99285; 80143; J2543; J2270; J2405; J7040 ×2

== ENCOUNTER 2025-03-28 01:01 | Emergency (ER) | payer OTHER ==
[2025-03-28 01:43] LABS: Absolute Lymphocytes (CBC) 1.1 K/uL (0.7-4.9); Hematocrit 30.1 % (36.0-45.0); Hemoglobin 9.9 g/dL (12.0-15.0); MCH 29.5 pg (27.0-35.0); MCHC 32.9 g/dL (32.0-36.0); MCV 89.6 fL (80-100); MPV 8.0 fL (7.6-11.3); Nucleated RBC Absolute Count 0.0 (0-0); Nucleated Red Blood Cells % 0.0 % (0-0); RBC Red Blood Cell Count 3.36 M/uL (3.86-4.86); White Blood Count 7.10 thou/uL (4.3-10.9)
[2025-03-28 01:58] LABS: Anion Gap 12.0 mEq/L (5.0-15.0); BUN Blood Urea Nitrogen 29.0 mg/dL (7-18); Glucose Level 94.0 mg/dL (74-106); Potassium 4.0 mEq/L (3.5-5.1)
[2025-03-28] MEDS ORDERED: MORPHINE 4 MG/ML SYR ONE (02:41)
[2025-03-28] MEDS ORDERED: HYDROCODONE/APAP 5/325 MG TAB ONE (04:12)
--- NOTE | 2025-03-28 04:15 | EDPHYS ---
Physician Documentation [facility] Name: Bella Barron Age: 64 yrs Sex: Female : 1960 Arrival Date: 03/28/2025 Time: : Bed 13 Private MD: ED Physician Azam Farrell HPI: 03/28 01:24 This 64 yrs old Female presents to ER via Wheelchair with complaints of Fall Injury, ms3 Weakness. 01:24 64-year-old female with past medical history of liver cirrhosis, Crohn's disease, ms3 hypertension, kidney disease, liver transplant July 2022 presents to the emergency department for left-sided chest pain and left sided abdominal pain status post fall 3 days ago. Patient states she got out of bed and lost her balance and fell. Patient states her discomfort is a 10/10. She denies any alleviating or inciting factors.. Historical: - Allergies: 01:23 ceftriaxone; ha1 01:23 Ciprofloxacin; ha1 01:23 Egg Derived; ha1 01:23 Iodine; ha1 01:23 LACTASE; ha1 01:23 Promethazine; ha1 - PMHx: 01:23 cirrhosis of liver; Crohn's Disease; hypotension; kidney disease; Liver transplant (Jul); trach removed Jun 2022; - PSHx: :23 bowel resection; Cholecystectomy; Colectomy; left shoulder replacement; liver ha1 transplant; - Immunization history:: Adult Immunizations unknown. - Infectious Disease History:: Denies. - Immunization history: Last tetanus immunization: unknown. - Social history:: Smoking status: Patient reports the use of cigarette tobacco products, smokes one pack cigarettes per day. ROS: 01:24 Constitutional: Negative for fever, and chills. Cardiovascular: Negative for chest ms3 pain, and palpitations. Respiratory: Negative for shortness of breath, cough, wheezing, and pleuritic chest pain, Abdomen/GI: Negative for abdominal pain, nausea, vomiting, diarrhea, and constipation, MS/Extremity: Negative for injury and deformity, :24 Skin: Positive for ecchymosis, of the Left abdomen, Exam: :24 Constitutional: This is a well developed, well nourished patient who is awake, alert, ms3 and in no acute distress. Cardiovascular: Regular rate and rhythm with a normal S1 and S2. No gallops, murmurs, or rubs. Normal PMI, no JVD. No pulse deficits. Respiratory: Lungs have equal breath sounds bilaterally, clear to auscultation and percussion. No rales, rhonchi or wheezes noted. No increased work of breathing, no retractions or nasal flaring. MS/ Extremity: Pulses equal, no cyanosis. Neurovascular intact. Full, normal range of motion. 01:24 Chest/axilla: Inspection: normal, Palpation: tenderness, that is moderate, of the left lateral anterior chest, 01:24 Abdomen/GI: Inspection: bruising, left upper quadrant, Bowel sounds: normal, in all quadrants, Palpation: moderate abdominal tenderness, in the left upper quadrant and left lower quadrant, Vital Signs: 01:09 BP 149 / 98; Pulse 85; Resp 17 S; Temp 97.2(T); Pulse Ox 100% on R/A; Weight 54.43 kg; ha1 Height 4 ft. 11 in. ; Pain 10/10; 02:45 BP 146 / 86; Pulse 83; Resp 20; Pulse Ox 100% on R/A; hm5 03:28 BP 128 / 72; Pulse 71; Resp 17; Pulse Ox 97% on R/A; hm5 04:53 BP 125 / 74; Pulse 73; Resp 17; Temp 97.2; Pulse Ox 98% ; Pain 9/10; bm8 01:09 Body Mass Index 24.24 (54.43 kg, 149.86 cm) ha1 01:09 Pain Scale: Adult ha1 04:53 Pain Scale: Adult bm8 Yojana Coma Score: 01:49 Eye Response: spontaneous(4). Motor Response: obeys commands(6). Verbal Response: hm5 oriented(5). Total: 15. 04:53 Eye Response: spontaneous(4). Motor Response: obeys commands(6). Verbal Response: bm8 oriented(5). Total: 15. Trauma Score (Adult): 01:49 Eye Response: spontaneous(1); Verbal Response: oriented(1); Motor Response: obeys hm5 commands(2); Systolic BP: > 89 mm Hg(4); Respiratory Rate: 10 to 29 per min(4); [place] Score: 15; Trauma Score: 12 MDM: 01:11 Medical Screening Exam initiated ms3 01:24 Differential diagnosis: abrasion, contusion, fracture, sprain, strain. ms3 07:34 Data reviewed: vital signs, nurses notes, lab test result(s), radiologic studies, CT ms3 scan, and as a result, I will discharge patient. I considered the following discharge prescriptions or medication management in the emergency department Medications were administered in the Emergency Department. See MAR. Counseling: I had a detailed discussion with the patient and/or guardian regarding the historical points, exam findings, and any diagnostic results supporting the discharge/admit diagnosis, lab results, radiology results, the need for outpatient follow up, to return to the emergency department if symptoms worsen or persist or if there are any questions or concerns that arise at home. Special discussion: I discussed with the patient/guardian in detail that at this point there is no indication for admission to the hospital. It is understood, however, that if the symptoms persist or worsen the patient needs to return immediately for re-evaluation. ED course: Discussed CT findings and labs with the patient and her . Patient to follow-up with primary care physician in 2 to 3 days. All questions were answered. Return precautions discussed include worsening symptoms, or any other concerns. Patient provided with incentive spirometer. Discussed with patient necessity to use incentive spirometer at least every 30 minutes while awake. On reevaluation patient is alert and oriented, in no apparent distress, nontoxic-appearing, speaking full sentences, pain controlled.. 03/28 01:23 Order name: CBC with Diff; Complete Time: 02:26 ms3 03/28 01:23 Order name: BMP; Complete Time: 02:26 ms3 03/28 01:55 Order name: Chest Abd Pelvis Wo Con EDMS Administered Medications: 02:45 Drug: morphine IVP or IV 4 mg IVP once over 4 mins Route: IVP; Infused Over: 4 mins; hm5 Site: right antecubital; 03:12 Follow up: Response: No adverse reaction; Pain is decreased hm5 04:17 Drug: HYDROcodone-acetaminophen PO 5 mg-325 mg 1 tabs PO once Route: PO; zm 04:55 Follow up: Response: No adverse reaction bm8 Disposition Summary: 03/28/25 04:15 Discharge Ordered Notes: Location: Home ms3 Condition: Stable ms3 Diagnosis - Multiple fractures of ribs, left side ms3 - Fall on same level, unspecified ms3 - Anemia, unspecified ms3 - Chronic kidney disease, unspecified ms3 Followup: ms3 - With: Private Physician - When: 2 - 3 days - Reason: Recheck today's complaints Discharge Instructions: - Discharge Summary Sheet ms3 - Anemia ms3 - How to Use an Incentive Spirometer ms3 - Fall Prevention in the Home, Adult, [id number] ms3 - Chronic Kidney Disease, Adult, [id number] ms3 - Rib Fracture, [id number] ms3 Forms: - Medication Reconciliation Form ms3 - Antibiotic Education ms3 - Prescription Opioid Use ms3 - Patient Portal Instructions ms3 - Leadership Thank You Letter ms3 Prescriptions: - Tylenol-Codeine #3 300mg-30mg Oral tablet - take 1 tablet ORAL route every 4 hours As needed; 18 tablet; Refills: 0, ms3 Product Selection Permitted Signatures: Dispatcher [employer] EDMS Azam Farrell DO DO ms3 Suzie Uribe, RN RN zm Екатерина Smart, RN RN ha1 Gwendolyn Chacko RN RN hm5 Domenic Dawson RN bm8 Corrections: (The following items were deleted from the chart) 01:23 01:23 Chest Abdomen Pelvis W Con+CT.RAD.BRZ ordered. EDMS EDMS 01:23 01:23 CBC+H.LAB.BRZ ordered. EDMS EDMS 01:23 01:23 BASIC METABOLIC PANEL+C.LAB.BRZ ordered. EDMS EDMS 04:11 04:11 IS+RC.RAD.BRZ ordered. EDMS EDMS
--- NOTE | 2025-03-28 04:15 | ER ---
Nurse's Notes [facility] Name: Bella Barron Age: 64 yrs Sex: Female : 1960 Arrival Date: 03/28/2025 Time: : Bed 13 Private MD: Diagnosis: Multiple fractures of ribs, left side;Fall on same level, unspecified;Anemia, unspecified;Chronic kidney disease, unspecified Presentation: 03/28 01:09 Chief complaint: Patient states: fell down three days ago, pain on the left side of ha1 rib. feeling weak. 01:09 Coronavirus screen: Client denies travel out of the [place] in the last 14 days. Ebola ha1 Screen: No symptoms or risks identified at this time. Initial Sepsis Screen: Does the patient meet any 2 criteria? No. Patient's initial sepsis screen is negative. Does the patient have a suspected source of infection? No. Patient's initial sepsis screen is negative. Risk Assessment: Do you want to hurt yourself or someone else? Patient reports no desire to harm self or others. Onset of symptoms was March 28, 2025. 01:09 Method Of Arrival: Wheelchair ha1 01:09 Acuity: OLEG 3 ha1 01:50 Care prior to arrival: None. Mechanism of Injury: Fall FROM STANDING, LANDED ON LEFT hm5 RIB AREA. Trauma event details: Injury occurred in the [facility], Injury occurred: at home. Injury occurred: March 25, 2025. Triage Assessment: 01:23 General: Appears uncomfortable, Behavior is calm, cooperative. Pain:. Neuro: Level of ha1 Consciousness is awake, alert, obeys commands, Oriented to person, place, time, situation. Cardiovascular: Capillary refill < 3 seconds Patient's skin is warm and dry. Respiratory: Airway is patent Respiratory effort is even, unlabored, Respiratory pattern is regular, symmetrical. : No signs and/or symptoms were reported regarding the genitourinary system. Derm: Skin is normal. Historical: - Allergies: 01:23 ceftriaxone; ha1 01:23 Ciprofloxacin; ha1 01:23 Egg Derived; ha1 01:23 Iodine; ha1 01:23 LACTASE; ha1 01:23 Promethazine; ha1 - PMHx: 01:23 cirrhosis of liver; Crohn's Disease; hypotension; kidney disease; Liver transplant (Jul); trach removed Jun 2022; - PSHx: 01:23 bowel resection; Cholecystectomy; Colectomy; left shoulder replacement; liver ha transplant; - Immunization history:: Adult Immunizations unknown. - Infectious Disease History:: Denies. - Immunization history: Last tetanus immunization: unknown. - Social history:: Smoking status: Patient reports the use of cigarette tobacco products, smokes one pack cigarettes per day. Screenin:48 [facility] ED Fall Risk Assessment (Adult) History of falling in the last 3 months, hm5 including since admission Yes- single mechanical fall (1 pt) Confusion or Disorientation Yes (5 pts) Intoxicated or Sedated No (0 pts) Impaired Gait Yes (1 pt) Mobility Assist Device Used No (0 pt) Altered Elimination Yes (1 pt) Score/Fall Risk Level 3 or more points = High Risk Oriented to surroundings, Maintained a safe environment, Educated pt \T\ family on fall prevention, incl call for assistance when getting out of bed, Assessed \T\ reinforced patient's understanding of fall precautions. Abuse screen: Denies threats or abuse. Denies injuries from another. Nutritional screening: No deficits noted. Tuberculosis screening: No symptoms or risk factors identified. Primary Survey: 01:49 NO uncontrolled hemorrhage observed. Breathing/Chest: Spontaneous respiratory effort, hm5 equal unlabored respirations, breath sounds clear bilaterally, regular pattern, symmetrical chest rise and fall. Circulation: No external hemorrhage present. Regular and strong central pulse, skin warm/dry/normal color. Disability Pupils are equal, round, reactive to light and accommodation. Client is alert. Exposure/Environment: All clothing and personal items were removed. Forensic evidence collection is not deemed to be indicated at this time. Items placed in patient belonging bag. 01:50 Reassessment Breathing: Spontaneous respiratory effort, equal unlabored respirations, hm5 breath sounds clear bilaterally, regular pattern with symmetrical chest rise and fall. Other PAIN WITH RESPIRATIONS Circulation: No external hemorrhage noted. Regular and strong central pulse, skin warm/dry/normal color. Disability: Pupils Pupils are equal, round, reactive to light and accomodation. Alert. Secondary Survey: 02:46 HEENT: No deficits noted. Gastrointestinal: No deficits noted. : No deficits noted. hm5 Musculoskeletal: Reports pain in left lateral posterior chest and left lateral anterior chest since FALL X3 DAYS LOC[employer]. Assessment: 01:46 Pain: Complains of pain in left lateral posterior chest and left lateral anterior hm5 chest. Neuro: No deficits noted. Cardiovascular: No deficits noted. Respiratory: Reports pain with respiration since SINCE FALLING 3 DAYS AGO AND HITTING LEFT RIBS. 01:47 GI: No deficits noted. No signs and/or symptoms were reported involving the hm5 gastrointestinal system. : No deficits noted. No signs and/or symptoms were reported regarding the genitourinary system. EENT: No deficits noted. No signs and/or symptoms were reported regarding the EENT system. Derm: No deficits noted. No signs and/or symptoms reported regarding the dermatologic system. Musculoskeletal: Reports pain in left lateral posterior chest and left lateral anterior chest since SINCE FALLING 3 DAYS AGO. 04:53 Reassessment: Patient appears in no apparent distress at this time. Patient and/or bm8 family updated on plan of care and expected duration. Pain level reassessed. Patient is alert, oriented x 3, equal unlabored respirations, skin warm/dry/pink. pt states that she still has pain. Explained to pt that she just received a Rosalia 5/325 and she needed to give time for medication to take effect. Vital Signs: 01:09 BP 149 / 98; Pulse 85; Resp 17 S; Temp 97.2(T); Pulse Ox 100% on R/A; Weight 54.43 kg; ha1 Height 4 ft. 11 in. ; Pain 10/10; 02:45 BP 146 / 86; Pulse 83; Resp 20; Pulse Ox 100% on R/A; hm5 03:28 BP 128 / 72; Pulse 71; Resp 17; Pulse Ox 97% on R/A; hm5 04:53 BP 125 / 74; Pulse 73; Resp 17; Temp 97.2; Pulse Ox 98% ; Pain 9/10; bm8 01:09 Body Mass Index 24.24 (54.43 kg, 149.86 cm) ha1 01:09 Pain Scale: Adult ha1 04:53 Pain Scale: Adult bm8 Florence Coma Score: 01:49 Eye Response: spontaneous(4). Motor Response: obeys commands(6). Verbal Response: hm5 oriented(5). Total: 15. 04:53 Eye Response: spontaneous(4). Motor Response: obeys commands(6). Verbal Response: bm8 oriented(5). Total: 15. Trauma Score (Adult): 01:49 Eye Response: spontaneous(1); Verbal Response: oriented(1); Motor Response: obeys hm5 commands(2); Systolic BP: > 89 mm Hg(4); Respiratory Rate: 10 to 29 per min(4); Florence Score: 15; Trauma Score: 12 ED Course: 01:05 Patient arrived in ED. [email or web address] 01:06 Azam Farrell DO is Attending Physician. ms3 01:15 Gwendolyn Chacko, RN is Primary Nurse. hm5 01:23 Triage completed. ha1 01:50 Arm band placed on left wrist. hm5 01:50 No provider procedures requiring assistance completed. Inserted saline lock: 20 gauge hm5 in left antecubital area, using aseptic technique. Blood collected. Flushed with 10 mL NS. 01:51 Patient has correct armband on for positive identification. Bed in low position. Call hm5 light in reach. Side rails up X2. Provided Education on: PLAN OF CARE. 01:51 Patient maintains SpO2 saturation greater than 95% on room air. hm5 01:51 Thermoregulation: warm blanket given to patient. hm5 02:04 Chest Abd Pelvis Wo Con In Process Unspecified. EDMS 04:11 Repositioned patient. Linen changed. changed patients diaper. bm8 04:53 IV discontinued, intact, bleeding controlled, No redness/swelling at site. Pressure bm8 dressing applied. Administered Medications: 02:45 Drug: morphine IVP or IV 4 mg IVP once over 4 mins Route: IVP; Infused Over: 4 mins; hm5 Site: right antecubital; 03:12 Follow up: Response: No adverse reaction; Pain is decreased hm5 04:17 Drug: HYDROcodone-acetaminophen PO 5 mg-325 mg 1 tabs PO once Route: PO; zm 04:55 Follow up: Response: No adverse reaction bm8 Medication: 01:52 VIS not applicable for this client. hm5 Intake: 01:49 PO: 0ml; Total: 0ml. hm5 Output: 01:49 Urine: 0ml; Total: 0ml. hm5 Outcome: 04:15 Discharge ordered by MD. ms3 04:53 Discharged to home via wheelchair, with family, bm8 04:53 Condition: stable 04:53 Discharge instructions given to patient, family, Instructed on discharge instructions, follow up and referral plans. no drinking with medication, no driving heavy equipment, medication usage, safety practices, Demonstrated understanding of instructions, follow-up care, medications, Prescriptions given X 1, 04:55 Patient's length of stay in the Emergency Department was greater than 2 hours. waiting bm8 on imaging resultsPatient's length of stay extended due to 04:56 Patient left the ED. bm8 Signatures: Dispatcher [employer] EDMS Azam Farrell DO DO ms3 Alka Garcia [email or web address] Suzie Uribe, RN RN Екатерина Smart RN RN ha1 Domenic Dawson RN RN bm8 Gwendolyn Chacko RN RN hm5 Corrections: (The following items were deleted from the chart) 01:23 01:09 Chief complaint: Patient states: fell three days ago, pain on the left side of ha1 rib. feeling weak ha1 01:27 01:09 Acuity: OLEG 4 ha1 ha1
--- NOTE | 2025-03-28 07:02 | RAD REPORT ---
EXAM DESCRIPTION: CT CHEST ABDOMEN PELVIS WITHOUT IV CONTRAST 03/28/2025 3:29 AM CDT CLINICAL HISTORY: 64 years, Female, Fall, left rib pain, left abdominal contusions/ TTP. COMPARISON: XR Chest 03/03/2025, CT Chest Abdomen Pelvis 10/19/2024. PROCEDURE: Axial images through the chest, abdomen and pelvis were performed without the administration of IV co ntrast. In addition multiplanar reformats in the coronal and sagittal plane were obtained and reviewed. An individualized dose optimization technique, Automated Exposure Control, was utilized for the perfo rmed procedure. FINDINGS: The lack of intravenous contrast greatly limits evaluation/assessment of solid organs. CHEST: Lower neck: Visualized thyroid gland and soft tissues are normal. No adenopathy. Lungs: The lung parenchyma demonstrate to be clear. No evidence of airspace or interstitial process. No significant pulmonary nodules and/or masses identified. No focal areas of consolidation. Airways: The trachea mainstem bronchus demonstrate to be unremarkable. Pleural: There are no pleural effusion. No evidence for pneumothorax. Small right posterior diaphragm atic eventration of high-Bochdalek type hernia on axial image 43 Mediastinum and lymph nodes: No significant mediastinal and/or hilar lymphadenopathy. The axillary re gions demonstrate to be clear. Heart: Normal size. No pericardial thickening or effusion. There is minimal mitral annular constipati on. Coronary: No significant coronary artery calcifications. Aorta: The thoracic aorta demonstrate to be within normal limits. No evidence for aneurysm. Pulmonary arteries: The pulmonary arteries were not evaluated due to lack of IV contrast. Osseous structures and chest wall: There is minimal buckling/deformity involving the anterior lateral third rib on axial image 13/121, second rib on axial image 21/121, fourth rib on axial image 30/121 and minimally fifth rib on axial image 35/121 suggesting the possibility of mild nondisplaced rib buckling/early fracture. ABDOMEN AND PELVIS: Liver: Again there are multiple surgical clips within the anterior aspect of the inferior vena cava, gallbladder area and portal system corresponding to most likely previous liver transplantation. Otherwise grossly the unopacified liver demonstrates to be normal, no focal lesions are identified. Gallbladder: Surgical clips within the gallbladder fossa corresponding to previous cholecystectomy. N o significant biliary duct dilatation. Adrenal glands: The adrenal glands demonstrate to be normal. Pancreas: Grossly the unopacified pancreas demonstrate to be unremarkable. Spleen: Grossly the unopacified spleen demonstrate to be unremarkable. Kidneys: The kidneys demonstrate normal uptake of contrast media. Grossly the unopacified kidneys d emonstrate to be within normal limits. There is probable right nephrolithiasis on axial image 54 and questionable left nephrolithiasis on axial image 63. There is no evidence for hydronephrosis and/ or hydroureter. Again the kidneys demonstrate presence of bilateral renal cyst upper pole right cyst measuring 1.7 cm on image 47, left kidney midpole measuring 2 cm on image 59. GI: Grossly the unopacified stomach, small bowel and large bowel demonstrate to be within normal limi ts. No evidence for bowel dilatation and/or free air. There is findings suggesting most likely right hemicolectomy. The sigmoid colon demonstrate questionable underdistention and/or minimal mucosa l thickening possibility of colitis cannot be totally excluded. : The urinary bladder demonstrate to be partially distended with no gross abnormalities. Genitalia: The uterus demonstrate to be within normal limits. There are normal adnexal structures. Abdominal aorta: The aorta demonstrated presence of minimal peripheral atheromatous plaque extending into the aortic bifurcation. Retroperitoneum: There is no retroperitoneal lymphadenopathy. There is no evidence for ascites and/or abnormal fluid collections. Bones: The bones demonstrate to be demineralized. The lumbar spine demonstrate minimal degenerative c hanges at L2/L3. Soft tissues: The soft tissues demonstrate to be unremarkable. IMPRESSION: Minimal buckling/deformity involving the anterior lateral third rib, second rib, fourth rib and minim ally fifth rib suggesting the possibility of mild nondisplaced rib buckling/early fracture. Small right posterior diaphragmatic eventration of high-Bochdalek type hernia. Status post liver transplantation. Probable right hemicolectomy. Questionable underdistention and/or minimal mucosal thickening of the sigmoid colon possibility of co litis cannot be totally excluded. Multiple lesions, including bosniak I/Bosniak II benign renal cyst measuring 2 cm. No follow-up imagi ng is recommended. JACR 2018 Sep; 264-273, Management of the Incidental Renal Mass on CT, [employer] 2020; [id number], Bosniak Classification of Cystic Renal Masses, Version 2019. Probable bilateral nephrolithiasis. Electronically signed by: Scott Kennedy MD 03/28/2025 04:03 AM CDT RP Due to temporary technical issues with the PACS/[employer] reporting system, reports are being jac d by the in-house radiologist without review as a courtesy to ensure prompt reporting the interpreting radiologist is fully responsible for the content of the report. Transcribed Date/Time: 03/28/2025 7:02 AM
[2025-03-28 13:24] VITALS: TEMP 97.2
[2025-03-28 13:27] VITALS: BP 125/74; O2SAT 98
== END 2025-03-28 04:56 | disposition home or self-care (01) ==
LOC: ER 01:01
DX: S22.42XA Multiple fractures of ribs, left side, initial encounter for closed fracture (principal); D64.9 Anemia, unspecified; N18.9 Chronic kidney disease, unspecified; W18.30XA Fall on same level, unspecified, initial encounter; Z94.4 Liver transplant status; F17.210 Nicotine dependence, cigarettes, uncomplicated
CPT/HCPCS: 36415; 71250; 74176; 80048; 85025; 96374; 99284

== ENCOUNTER 2025-04-28 21:33 | Emergency (ER) | payer OTHER ==
[2025-04-28] MEDS ORDERED: MORPHINE 4 MG/ML SYR ONE (22:08)
[2025-04-28] MEDS ORDERED: ONDANSETRON 4 MG/2 ML VIAL ONE (22:09)
[2025-04-28] MEDS ORDERED: NA CHLORIDE 0.9% 1,000 ML ONE (22:09)
[2025-04-28 22:33] LABS: Absolute Lymphocytes (CBC) 1.4 K/uL (0.7-4.9); Hematocrit 28.5 % (36.0-45.0); Hemoglobin 9.4 g/dL (12.0-15.0); MCH 29.0 pg (27.0-35.0); MCHC 33.1 g/dL (32.0-36.0); MCV 87.6 fL (80-100); MPV 7.6 fL (7.6-11.3); Nucleated RBC Absolute Count 0.0 (0-0); Nucleated Red Blood Cells % 0.0 % (0-0); RBC Red Blood Cell Count 3.25 M/uL (3.86-4.86); White Blood Count 6.30 thou/uL (4.3-10.9)
[2025-04-28 22:44] LABS: ALT/SGPT 42.0 U/L (13-56); AST/SGOT 21.0 U/L (15-37); Albumin 3.1 g/dL (3.4-5.0); Albumin/Globulin Ratio 1.0 (1.1-1.8); Alkaline Phosphatase 131.0 U/L (45-117); Anion Gap 9.3 mEq/L (5.0-15.0); BUN Blood Urea Nitrogen 33.0 mg/dL (7-18); Globulin 3.0 g/dL (2.3-3.5); Glucose Level 112.0 mg/dL (74-106); Lipase 44.0 U/L (13-75); Potassium 4.3 mEq/L (3.5-5.1)
[2025-04-28 23:45] LABS: Sqamous Epithelial <5 /HPF (None Seen); Urine Culture Reflex Order NOT NEEDED; Urine Microscopic Reflex YN ORDER UMIC
[2025-04-29] MEDS ORDERED: MORPHINE 4 MG/ML SYR ONE (00:37)
--- NOTE | 2025-04-29 03:15 | ER ---
Nurse's Notes [facility] Name: Bella Barron Age: 64 yrs Sex: Female : 1960 Arrival Date: 04/28/2025 Time: 21:33 Bed 8 Private MD: Diagnosis: Dorsalgia, unspecified;Dysuria Presentation: 04/28 21:40 Chief complaint: Spouse and/or significant other states: She was complaining of pain rg5 when she pee since yesterday and pain in the ribs from previous fall.. she also having some confusion lately. 21:40 Coronavirus screen: Client denies travel out of the [place] in the last 14 days. Ebola rg5 Screen: Patient negative for fever greater than or equal to 101.5 degrees Fahrenheit, and additional compatible Ebola Virus Disease symptoms Patient denies exposure to infectious person. Patient denies travel to an Ebola-affected area in the 21 days before illness onset. Initial Sepsis Screen: Does the patient meet any 2 criteria? No. Patient's initial sepsis screen is negative. Does the patient have a suspected source of infection? No. Patient's initial sepsis screen is negative. Risk Assessment: Do you want to hurt yourself or someone else? Patient reports no desire to harm self or others. Onset of symptoms was April 28, 2025. 21:40 Method Of Arrival: Wheelchair rg5 21:40 Acuity: OLEG 3 rg5 Triage Assessment: 21:40 General: Appears uncomfortable, Behavior is calm, cooperative, appropriate for age. rg5 Pain: Complains of pain in suprapubic area Quality of pain is described as aching, Pain began gradually. EENT: No signs and/or symptoms were reported regarding the EENT system. Neuro: Level of Consciousness is awake, alert, obeys commands. Cardiovascular: Patient's skin is warm and dry. Respiratory: Airway is patent Trachea midline Respiratory effort is even, unlabored, Respiratory pattern is regular, symmetrical. GI: Abdomen is round non-distended. : Reports pain urinary frequency. Derm: Skin is intact, Skin is dry, Skin is normal. Musculoskeletal: Circulation, motion, and sensation intact. Range of motion: intact in all extremities. Historical: - Allergies: 21:40 bismuth subsalicylate; rg5 21:40 ceftriaxone; rg5 21:40 Ciprofloxacin; rg5 21:40 Egg Derived; rg5 21:40 Iodine; rg5 21:40 LACTASE; rg5 21:40 Promethazine; rg5 - PMHx: 21:40 cirrhosis of liver; Crohn's Disease; hypotension; kidney disease; Liver transplant (Jul); trach removed Jun 2022; - PSHx: 21:40 bowel resection; Cholecystectomy; Colectomy; left shoulder replacement; liver rg transplant; - Immunization history:: Adult Immunizations unknown. - Infectious Disease History:: Denies. - Social history:: Smoking status: Patient reports the use of cigarette tobacco products, smokes one pack cigarettes per day. Screenin:19 [facility] ED Fall Risk Assessment (Adult) History of falling in the last 3 months, vc1 including since admission No falls in past 3 months (0 pts) Confusion or Disorientation No (0 pts) Intoxicated or Sedated No (0 pts) Impaired Gait No (0 pts) Mobility Assist Device Used No (0 pt) Altered Elimination No (0 pt) Score/Fall Risk Level 3 or more points = High Risk Oriented to surroundings, Maintained a safe environment, Educated pt \T\ family on fall prevention, incl call for assistance when getting out of bed, Assessed \T\ reinforced patient's understanding of fall precautions, Provided non-skid footwear, Hourly rounding (assess needs \T\ fall precautionary measures) done, Used ambulatory aids as needed (educated on \T\ assisted with), Offered frequent toileting (1:1 observation). Abuse screen: Denies threats or abuse. Nutritional screening: No deficits noted. Tuberculosis screening: No symptoms or risk factors identified. Assessment: 21:45 General: Appears in no apparent distress. uncomfortable, Behavior is calm, cooperative. cc6 Pain: Complains of pain in back and suprapubic area Pain does not radiate. Pain currently is 10 out of 10 on a pain scale. Quality of pain is described as crampy, Pain began 1 day ago. Neuro: Level of Consciousness is awake, alert, obeys commands, Oriented to person, place, time, situation. Cardiovascular: Patient's skin is warm and dry. Respiratory: Airway is patent Respiratory effort is even, unlabored, Respiratory pattern is regular, symmetrical. GI: Abdomen is flat, Bowel sounds present X 4 quads. Abd is soft and non tender X 4 quads. : Reports pain with urination. EENT: No signs and/or symptoms were reported regarding the EENT system. Derm: No signs and/or symptoms reported regarding the dermatologic system. Musculoskeletal: No signs and/or symptoms reported regarding the musculoskeletal system. 22:40 Reassessment: Patient and/or family updated on plan of care and expected duration. Pain cc6 level reassessed. Patient is alert, oriented x 3, equal unlabored respirations, skin warm/dry/pink. 23:59 Reassessment: Patient appears in no apparent distress at this time. No changes from vc1 previously documented assessment. Patient and/or family updated on plan of care and expected duration. Pain level reassessed. Patient is alert, oriented x 3, equal unlabored respirations, skin warm/dry/pink. 04/29 00:47 Reassessment: Patient and/or family updated on plan of care and expected duration. Pain vc1 level reassessed. Patient is alert, oriented x 3, equal unlabored respirations, skin warm/dry/pink. 01:47 Reassessment: Patient appears in no apparent distress at this time. Patient and/or bm8 family updated on plan of care and expected duration. Pain level reassessed. Patient is alert, oriented x 3, equal unlabored respirations, skin warm/dry/pink. Patient states feeling better. 02:52 Reassessment: Patient appears in no apparent distress at this time. No changes from cc6 previously documented assessment. Patient and/or family updated on plan of care and expected duration. Pain level reassessed. Patient is alert, oriented x 3, equal unlabored respirations, skin warm/dry/pink. 03:42 Reassessment: Patient appears in no apparent distress at this time. Patient and/or zm family updated on plan of care and expected duration. Pain level reassessed. Patient is alert, oriented x 3, equal unlabored respirations, skin warm/dry/pink. Patient denies pain at this time. Patient states feeling better. Patient states symptoms have improved. Vital Signs: 04/28 21:40 BP 175 / 88; Pulse 76; Resp 18; Temp 97.9; Pulse Ox 100% ; Pain 8/10; rg5 22:40 BP 165 / 99; Pulse 79; Resp 16; Pulse Ox 100% ; cc6 23:30 BP 160 / 89; Pulse 82; Resp 16; Pulse Ox 100% ; vc1 04/29 00:46 BP 156 / 89; Pulse 85; Resp 16; Pulse Ox 99% on R/A; vc1 01:47 BP 167 / 89; Pulse 81; Resp 17; Temp 97.9; Pulse Ox 99% ; bm8 02:52 BP 160 / 83; Pulse 84; Resp 14; Pulse Ox 100% ; cc6 03:42 BP 154 / 74; Pulse 81; Resp 17; Temp 97.9; Pulse Ox 100% ; Pain 0/10; zm 04/28 21:40 Pain Scale: Adult rg5 03:42 Pain Scale: Adult zm Yojana Coma Score: 01:47 Eye Response: spontaneous(4). Motor Response: obeys commands(6). Verbal Response: bm8 oriented(5). Total: 15. 03:42 Eye Response: spontaneous(4). Motor Response: obeys commands(6). Verbal Response: zm oriented(5). Total: 15. ED Course: 04/28 21:35 Patient arrived in ED. mr 21:36 James Busby PA-C is PHCP. cp 21:36 James Rossi MD is Attending Physician. cp 21:40 Arm band placed on. rg5 21:58 Triage completed. rg5 22:15 Inserted saline lock: 22 gauge in left Blood collected. Flushed with 10 mL NS. vc1 22:19 CBC with Diff Sent. vc1 22:19 CMP Sent. vc1 22:19 Lipase Sent. vc1 22:22 Patient has correct armband on for positive identification. Bed in low position. Call vc1 light in reach. Pulse ox on. NIBP on. 22:32 Mikki Martinez, RN is Primary Nurse. cc6 22:54 CT Stone Protocol In Process Unspecified. EDMS 23:44 UA Rfx Gabriele Cult if indicated Sent. cc6 04/29 01:47 No provider procedures requiring assistance completed. bm8 03:15 XRAY Chest (1 view) In Process Unspecified. EDMS 03:42 Provided Education on: post er care. zm 03:42 IV discontinued, intact, bleeding controlled, No redness/swelling at site. Pressure zm dressing applied. Administered Medications: 04/28 22:17 Drug: NS 0.9% IV 500 ml 500 ml IV at 1 bolus once; to be given as a bolus over 60 cc6 minutes Volume: 500 ml; Route: IV; Rate: 1 bolus; Site: left upper arm; 04/29 03:44 Follow up: Response: No adverse reaction; IV Status: Completed infusion 04/28 22:17 Drug: morphine IVP or IV 4 mg IVP once over 4 mins Route: IVP; Infused Over: 4 mins; cc6 Site: left upper arm; 23:07 Follow up: Response: No adverse reaction; RASS: Alert and Calm (0) [facility] 22:17 Drug: Ondansetron IVP 4 mg IVP once; over 2 minutes Route: IVP; Site: left upper arm; 6 23:06 Follow up: Response: No adverse reaction; Nausea is decreased [facility] 04/29 00:40 Drug: morphine IVP or IV 4 mg IVP once over 4 mins Route: IVP; Infused Over: 4 mins; vc1 Site: left upper arm; 01:46 Follow up: Response: No adverse reaction bm8 03:32 Drug: Nitrofurantoin PO 100 mg PO once; administer with food Route: PO; cc6 03:44 Follow up: Response: No adverse reaction zm 03:32 Drug: Methocarbamol PO 750 mg PO once Route: PO; cc6 03:44 Follow up: Response: No adverse reaction zm 03:32 Drug: Hydrocodone-Acetaminophen PO (7.5 mg-325 mg) 1 tabs PO once; RASS on ADMIN: cc6 Combtv4, Very Agttd3, Agttd2, Rstlss1, AlertClm0, Drwsy-1, Lt Sdtn-2, Mod Sdtn-3, Dp Sdtn-4, UnArsble-5 Route: PO; 03:43 Follow up: Response: No adverse reaction Medication: 04/28 23:01 VIS not applicable for this client. vc1 Outcome: 04/29 03:14 Discharge ordered by . onel 03:42 Discharged to home ambulatory, with family, zm 03:42 Condition: stable 03:42 Discharge instructions given to patient, family, Instructed on discharge instructions, follow up and referral plans. no drinking with medication, no driving heavy equipment, medication usage, safety practices, Demonstrated understanding of instructions, follow-up care, medications, Prescriptions given X 2, 03:45 Patient left the ED. zm Signatures: Dispatcher [employer] EDCO Mary Ann Lopez, Reg Reg mr Qi, James, PA-C PA-C Gaby Morton, RN RN vc1 Suzie Uribe, RN RN zm Domenic Dawson RN RN bm8 Ganesh Montero RN RN rg5 Mikki Martinez, RN RN cc6
--- NOTE | 2025-04-29 03:15 | EDPHYS ---
Physician Documentation [facility] Name: Bella Barron Age: 64 yrs Sex: Female : 1960 Arrival Date: 04/28/2025 Time: 21:33 Bed 8 Private MD: SARAH Physician James Rossi HPI: 04/28 21:50 This 64 yrs old Female presents to ER via Wheelchair with complaints of Urinary cp Problem, Pain With Urination. 21:50 The patient complains of pain in the right mid back. cp 21:50 Onset: The symptoms/episode began/occurred today. Associated signs and symptoms: cp Pertinent positives: dysuria. 21:50 Severity of pain: in the emergency department the pain is unchanged despite home cp interventions. Historical: - Allergies: 21:40 bismuth subsalicylate; rg5 21:40 ceftriaxone; rg5 21:40 Ciprofloxacin; rg5 21:40 Egg Derived; rg5 21:40 Iodine; rg5 21:40 LACTASE; rg5 21:40 Promethazine; rg5 - PMHx: 21:40 cirrhosis of liver; Crohn's Disease; hypotension; kidney disease; Liver transplant (Jul); trach removed Jun 2022; - PSHx: 21:40 bowel resection; Cholecystectomy; Colectomy; left shoulder replacement; liver rg transplant; - Immunization history:: Adult Immunizations unknown. - Infectious Disease History:: Denies. - Social history:: Smoking status: Patient reports the use of cigarette tobacco products, smokes one pack cigarettes per day. ROS: 21:55 Constitutional: Negative for body aches, chills, fever, poor PO intake, cp 21:55 Back: Positive for pain at rest, pain with movement, flank pain, on the right, 21:55 Respiratory: Negative for cough, shortness of breath, wheezing, cp 21:55 : Positive for urinary frequency, burning with urination, 21:55 Eyes: Negative for injury, pain, redness, and discharge, cp 21:55 ENT: Negative for drainage from ear(s), ear pain, sore throat, difficulty swallowing, difficulty handling secretions, 21:55 Cardiovascular: Negative for chest pain, edema, palpitations, 21:55 Abdomen/GI: Positive for abdominal pain, of the suprapubic area, Negative for vomiting, diarrhea, constipation, 21:55 Neuro: Negative for headache, 21:55 All other systems are negative, cp Exam: 22:00 Constitutional: The patient appears in no acute distress, alert, awake, cp non-diaphoretic, non-toxic, well developed, well nourished, uncomfortable, 22:00 Head/Face: Normocephalic, atraumatic. cp 22:00 Eyes: Periorbital structures: appear normal, Conjunctiva: normal, no exudate, no injection, Sclera: no appreciated abnormality, Lids and lashes: appear normal, bilaterally, 22:00 ENT: External ear(s): are unremarkable, Nose: is normal, Mouth: Lips: moist, Oral mucosa: moist, Posterior pharynx: Airway: no evidence of obstruction, patent, 22:00 Neck: ROM/movement: is normal, is supple, without pain, no range of motions limitations, 22:00 Chest/axilla: Inspection: normal, 22:00 Cardiovascular: Rate: normal, Rhythm: regular, Edema: is not appreciated, JVD: is not appreciated, 22:00 Respiratory: the patient does not display signs of respiratory distress, Respirations: normal, no use of accessory muscles, no retractions, labored breathing, is not present, Breath sounds: are clear throughout, no decreased breath sounds, no stridor, no wheezing, 22:00 Abdomen/GI: Inspection: abdomen appears normal, Bowel sounds: active, all quadrants, Palpation: soft, in all quadrants, mild abdominal tenderness, in the posterior aspect of right lateral abdomen and anterior aspect of right lateral abdomen, rebound tenderness, is not appreciated, involuntary guarding, is not appreciated, 22:00 Back: pain, that is moderate, of the right mid back, ROM is painful, with all movement, 22:00 Skin: cellulitis, is not appreciated, no rash present. 22:00 Neuro: Orientation: to person, situation, Mentation: able to follow commands, Motor: moves all fours, no focal deficits, Gait: is steady, Vital Signs: 21:40 BP 175 / 88; Pulse 76; Resp 18; Temp 97.9; Pulse Ox 100% ; Pain 8/10; rg5 22:40 BP 165 / 99; Pulse 79; Resp 16; Pulse Ox 100% ; cc6 23:30 BP 160 / 89; Pulse 82; Resp 16; Pulse Ox 100% ; vc1 04/29 00:46 BP 156 / 89; Pulse 85; Resp 16; Pulse Ox 99% on R/A; vc1 01:47 BP 167 / 89; Pulse 81; Resp 17; Temp 97.9; Pulse Ox 99% ; bm8 02:52 BP 160 / 83; Pulse 84; Resp 14; Pulse Ox 100% ; cc6 03:42 BP 154 / 74; Pulse 81; Resp 17; Temp 97.9; Pulse Ox 100% ; Pain 0/10; zm 04/28 21:40 Pain Scale: Adult rg5 03:42 Pain Scale: Adult zm Dupree Coma Score: 01:47 Eye Response: spontaneous(4). Motor Response: obeys commands(6). Verbal Response: bm8 oriented(5). Total: 15. 03:42 Eye Response: spontaneous(4). Motor Response: obeys commands(6). Verbal Response: zm oriented(5). Total: 15. MDM: 04/28 21:40 Medical Screening Exam initiated cp 04/29 03:13 Data reviewed: vital signs, nurses notes, lab test result(s), radiologic studies, CT cp scan, plain films. 03:13 Differential diagnosis: nephrolithiasis, pyelonephritis, UTI, sepsis, pneumonia, cp pneumothorax. I considered the following discharge prescriptions or medication management in the emergency department Medications were administered in the Emergency Department. See MAR. Independent interpretation of the following test(s) in the Emergency Department X-Ray: My interpretation is chest image negative for infiltrates, negative for pneumothorax. Historians other than the Patient: Spouse/Significant Other: assists with hpi. Care significantly affected by the following chronic conditions: Chronic Kidney Disease, Liver Disease. Counseling: I had a detailed discussion with the patient and/or guardian regarding the historical points, exam findings, and any diagnostic results supporting the discharge/admit diagnosis, lab results, radiology results, to return to the emergency department if symptoms worsen or persist or if there are any questions or concerns that arise at home. Response to treatment: the patient's symptoms have mildly improved after treatment, and as a result, I will discharge patient. 04/28 21:59 Order name: CBC with Diff; Complete Time: 23:59 cp 04/29 00:00 Interpretation: Normal except: RBC 3.25; HGB 9.4; HCT 28.5; RDW 17.9. 04/28 21:59 Order name: CMP; Complete Time: 23:59 04/29 00:00 Interpretation: Normal except: CL 117; GLUC 112; BUN 33; CRE 1.61; GFR 36; ALK 131; CA cp 8.3; TP 6.1; ALB 3.1; A/G 1.0. 04/28 21:59 Order name: Lipase; Complete Time: 23:59 04/28 21:59 Order name: UA Rfx Gabriele Cult if indicated; Complete Time: 23:59 04/28 22:30 Order name: CT Stone Protocol 04/29 01:48 Order name: XRAY Chest (1 view) 04/28 21:59 Order name: IV Saline Lock; Complete Time: 22:19 04/28 21:59 Order name: Labs collected and sent; Complete Time: 22:19 cp Administered Medications: 04/28 22:17 Drug: NS 0.9% IV 500 ml 500 ml IV at 1 bolus once; to be given as a bolus over 60 cc6 minutes Volume: 500 ml; Route: IV; Rate: 1 bolus; Site: left upper arm; 04/29 03:44 Follow up: Response: No adverse reaction; IV Status: Completed infusion 04/28 22:17 Drug: morphine IVP or IV 4 mg IVP once over 4 mins Route: IVP; Infused Over: 4 mins; cc6 Site: left upper arm; 23:07 Follow up: Response: No adverse reaction; RASS: Alert and Calm (0) 6 22:17 Drug: Ondansetron IVP 4 mg IVP once; over 2 minutes Route: IVP; Site: left upper arm; cc6 23:06 Follow up: Response: No adverse reaction; Nausea is decreased cc6 04/29 00:40 Drug: morphine IVP or IV 4 mg IVP once over 4 mins Route: IVP; Infused Over: 4 mins; vc1 Site: left upper arm; 01:46 Follow up: Response: No adverse reaction bm8 03:32 Drug: Nitrofurantoin PO 100 mg PO once; administer with food Route: PO; cc6 03:44 Follow up: Response: No adverse reaction zm 03:32 Drug: Methocarbamol PO 750 mg PO once Route: PO; cc6 03:44 Follow up: Response: No adverse reaction zm 03:32 Drug: Hydrocodone-Acetaminophen PO (7.5 mg-325 mg) 1 tabs PO once; RASS on ADMIN: cc6 Combtv4, Very Agttd3, Agttd2, Rstlss1, AlertClm0, Drwsy-1, Lt Sdtn-2, Mod Sdtn-3, Dp Sdtn-4, UnArsble-5 Route: PO; 03:43 Follow up: Response: No adverse reaction zm Disposition Summary: 04/29/25 03:14 Discharge Ordered Notes: Location: Home cp Problem: new cp Symptoms: have improved cp Condition: Stable cp Diagnosis - Dorsalgia, unspecified cp - Dysuria cp Followup: cp - With: Private Physician - When: 2 - 3 days - Reason: Worsening of condition Discharge Instructions: - Discharge Summary Sheet cp - Dysuria cp - Musculoskeletal Pain cp - Back Exercises cp Forms: - Medication Reconciliation Form cp - Antibiotic Education cp - Prescription Opioid Use cp - Patient Portal Instructions cp - Leadership Thank You Letter cp Prescriptions: - Macrobid 100 mg Oral Capsule - take 1 capsule ORAL route every 12 hours for 7 days; 14 capsule; Refills: 0, cp Product Selection Permitted - methocarbamol 500 mg Oral tablet - take 1 tablet ORAL route 3-4 times daily; 30 tablet; Refills: 0, Product cp Selection Permitted Addendum: 05/03/2025 11:41 Co-signature as Attending Physician, James Rossi MD I agree with the assessment and c layton plan of care. Signatures: Dispatcher [employer] James Finnegan MD MD cha Page, Corey, PA-C PA-C cp Gaby Newby RN RN vc1 Domenic Dawson RN RN bm8 Ganesh Montero, RN RN rg5 Mikki Martinez, RN RN cc6 Suzie Uribe RN zm
[2025-04-29] MEDS ORDERED: NITROFURAN MACRO 100 MG CAP PO ONE (03:24)
[2025-04-29] MEDS ORDERED: HYDROCODONE/APAP 7.5/325 MG TAB ONE (03:25)
[2025-04-29 04:05] VITALS: TEMP 97.9
[2025-04-29 04:11] VITALS: O2SAT 100
[2025-04-29 04:12] VITALS: BP 154/74
--- NOTE | 2025-04-29 05:26 | RAD REPORT ---
EXAM: XR Chest, 1 View CLINICAL HISTORY: The patient is 64 years old and is Female; flank pain TECHNIQUE: Frontal view of the chest. COMPARISON: 04/20/2025 FINDINGS: LUNGS: Trace right basal atelectasis. PLEURAL SPACE: Unremarkable. No pneumothorax. HEART: Unremarkable. No cardiomegaly. MEDIASTINUM: Unremarkable. Normal mediastinal contour. BONES/JOINTS: Reverse left shoulder arthroplasty again identified. Degenerative changes in the spine and shoulders. No acute fracture. SOFT TISSUES: Surgical clips in the left axilla. IMPRESSION: Trace right basal atelectasis. Followup PA and lateral views would be helpful if symptoms persist. Electronically signed by: Young Lynch MD 04/29/2025 04:53 AM CDT RP Due to temporary technical issues with the PACS/[employer] reporting system, reports are being jac d by the in-house radiologist without review as a courtesy to ensure prompt reporting the interpreting radiologist is fully responsible for the content of the report. Transcribed Date/Time: 04/29/2025 5:26 AM
--- NOTE | 2025-04-29 06:14 | RAD REPORT ---
EXAM: CTAbdomen and Pelvis Without Intravenous Contrast CLINICAL HISTORY: The patient is 64 years old and is Female; right flank pain TECHNIQUE: Axial computed tomography images of the abdomen and pelvis without intravenous contrast. Sagittal and coronal reformatted images were created and reviewed. This CT exam was performed using one or more of the following dose reduction techniques: automated exposure control, adjustment of the mA and/or k V according to patient size, and/or use of iterative reconstruction technique. COMPARISON: September 15, 2021 FINDINGS: LUNG BASES: Unremarkable. No mass. No consolidation. ABDOMEN: LIVER: Findings suggest prior hepatic transplant with multiple surgical clips noted. The liver is janette ogeneous. GALLBLADDER AND BILE DUCTS: Surgical clips are present in the right upper quadrant, consistent with p revious cholecystectomy. The bladder is minimally distended. No calcified gallstones or ductal dilatation is seen. PANCREAS: Unremarkable. No ductal dilation. SPLEEN: Unremarkable. ADRENALS: Unremarkable. No mass. KIDNEYS AND URETERS: No obstructing stones. No hydronephrosis. No perinephric fluid. STOMACH AND BOWEL: Stomach is distended with food contents. The small bowel is fluid-filled and relat ively normal in caliber. Stool is present throughout the colon. There is no mucosal thickening or evidence of obstruction. PELVIS: APPENDIX: The appendix is surgically absent. BLADDER: Unremarkable. No stones. REPRODUCTIVE: Unremarkable as visualized. ABDOMEN and PELVIS: INTRAPERITONEAL SPACE: Unremarkable. No free air. No significant fluid collection. BONES/JOINTS: Minimal degenerative change with intervertebral disc space narrowing and vacuum phenome non at L2-L3 is present. There is no acute fracture. SOFT TISSUES: Evidence of prior ventral wall hernia repair with abdominal wall mesh in place is noted . VASCULATURE: Calcified phleboliths are present within the pelvis. No abdominal aortic aneurysm. LYMPH NODES: Unremarkable. No enlarged lymph nodes. IMPRESSION: 1. No acute findings on this noncontrast CT of the abdomen and pelvis to explain the patient's sympto ms. 2. Chronic findings as detailed above. Electronically signed by: Elvie Doss MD 04/29/2025 12:14 AM CDT RP Due to temporary technical issues with the PACS/[employer] reporting system, reports are being jac d by the in-house radiologist without review as a courtesy to ensure prompt reporting the interpreting radiologist is fully responsible for the content of the report. Transcribed Date/Time: 04/29/2025 6:14 AM
== END 2025-04-29 03:45 | disposition home or self-care (01) ==
LOC: ER 21:33
DX: M54.9 Dorsalgia, unspecified (principal); R30.0 Dysuria; Z72.0 Tobacco use; Z94.4 Liver transplant status
CPT/HCPCS: 96361; 85025; 81001; 36415; 83690; 80053; 76377; 74176; 71045; 96375; 96374; 99284; J2405; J7030

== ENCOUNTER 2025-05-12 19:26 | Emergency (ER) | payer OTHER ==
[2025-05-12 20:47] LABS: Absolute Lymphocytes (CBC) 0.8 K/uL (0.7-4.9); Hematocrit 31.2 % (36.0-45.0); Hemoglobin 10.4 g/dL (12.0-15.0); MCH 29.2 pg (27.0-35.0); MCHC 33.4 g/dL (32.0-36.0); MCV 87.4 fL (80-100); MPV 8.6 fL (7.6-11.3); Nucleated RBC Absolute Count 0.1 (0-0); Nucleated Red Blood Cells % 0.6 % (0-0); RBC Red Blood Cell Count 3.57 M/uL (3.86-4.86); White Blood Count 10.10 thou/uL (4.3-10.9)
[2025-05-12 20:53] LABS: ALT/SGPT 46.0 U/L (13-56); AST/SGOT 29.0 U/L (15-37); Albumin 3.4 g/dL (3.4-5.0); Albumin/Globulin Ratio 1.1 (1.1-1.8); Alkaline Phosphatase 132.0 U/L (45-117); Anion Gap 7.0 mEq/L (5.0-15.0); BUN Blood Urea Nitrogen 25.0 mg/dL (7-18); Globulin 3.1 g/dL (2.3-3.5); Glucose Level 187.0 mg/dL (74-106); Potassium 5.0 mEq/L (3.5-5.1)
[2025-05-12 21:50] LABS: Sqamous Epithelial <5 /HPF (None Seen); Urine Culture Reflex Order NOT NEEDED; Urine Microscopic Reflex YN ORDER UMIC
[2025-05-12 21:54] LABS: Blood Morphology Comment NOT SEEN (NOT SEEN); Platelets Clumped FEW; White Blood Cell Scan OK (OK)
--- NOTE | 2025-05-12 22:01 | RAD REPORT ---
EXAMINATION: CT Stone Protocol CLINICAL INDICATION: Female, 64 years old. difficulty urinating TECHNIQUE: CT abdomen and pelvis was performed, without IV contrast, as per department protocol. Axia l, sagittal and coronal reconstructions were obtained. One or more of the following dose reduction techniques were used: Automated exposure control, adjustment of the mA and kV according to the patien t size, and iterative reconstruction. Unless otherwise specified, incidental findings do not require dedicated imaging follow-up. COMPARISON: 04/28/2025 FINDINGS: The lack of intravenous contrast limits the sensitivity of this exam for evaluation of solid visceral organs, vascular structures, and retroperitoneum. LOWER CHEST: Small layering right pleural effusion LIVER: Normal in size and contour. No focal lesion. BILIARY SYSTEM: Status post cholecystectomy. SPLEEN: Bulky in appearance and upper limit of normal in size, 12.9 cm. No focal lesion. PANCREAS: No mass, ductal dilation, or yokasta-pancreatic fluid. ADRENALS: Normal; no mass. KIDNEYS AND URETERS: Normal size and contour. No hydronephrosis. Right interpolar 3 mm nonobstructing calculus. Linear focus of mineralization along the lower left renal hilum measuring 5 mm could represent a calculus or vascular calcification. URINARY BLADDER: Decompressed limiting evaluation GASTROINTESTINAL TRACT: No evidence of bowel obstruction, significant free fluid, free air or abscess . Prior resection at the level of the cecum APPENDIX: Normal appendix. LYMPH NODES: No lymphadenopathy. MUSCULOSKELETAL: No acute or suspicious osseous abnormality. ADDITIONAL FINDINGS: Lobulated soft tissue density structure in the presacral space, stable. IMPRESSION: Right interpolar 3 mm nonobstructing calculus. Linear 5 mm left lower pole calculus versus vascular c alcification. Small right layering pleural effusion. No other acute findings. Stable incidental findings as above.
--- NOTE | 2025-05-12 23:09 | EDPHYS ---
Physician Documentation [facility] Name: Bella Barron Age: 64 yrs Sex: Female : 1960 Arrival Date: 05/12/2025 Time: 19:26 Bed 16 Private MD: ED Physician Maikel Rene HPI: 05/12 23:07 This 64 yrs old Female presents to ER via Wheelchair with complaints of Urinary Problem.kb 23:07 Patient is a 64-year-old female who presents for difficulty urinating since last night. kb Reports pain to abdomen. Denies fever, chills. Reports body aches started recently.. Historical: - Allergies: 19:44 bismuth subsalicylate; dd2 19:44 ceftriaxone; dd2 19:44 Ciprofloxacin; dd2 19:44 Egg Derived; dd2 19:44 Iodine; dd2 19:44 LACTASE; dd2 19:44 Promethazine; dd2 - PMHx: 19:44 cirrhosis of liver; Crohn's Disease; hypotension; kidney disease; Liver transplant (Jul); trach removed Jun 2022; - PSHx: 19:44 bowel resection; Cholecystectomy; Colectomy; left shoulder replacement; liver dd2 transplant; - Immunization history:: Adult Immunizations unknown. - Infectious Disease History:: Denies. - Social history:: Smoking status: Patient reports the use of cigarette tobacco products, smokes one pack cigarettes per day. ROS: 23:07 Constitutional: As per HPI kb Exam: 23:07 Constitutional: This is a well developed, well nourished patient who is awake, alert, kb and in no acute distress. Head/Face: Normocephalic, atraumatic. ENT: Moist Mucous membranes Cardiovascular: Regular rate Respiratory: Respirations even and unlabored. No increased work of breathing. Talking in full sentences Skin: Warm, dry with normal turgor. Normal color. MS/ Extremity: Pulses equal, no cyanosis. Neurovascular intact. Full, normal range of motion. Neuro: Awake and alert, GCS 15, oriented to person, place, time, and situation. 23:07 Abdomen/GI: Inspection: abdomen appears normal, Bowel sounds: normal, Palpation: soft, in all quadrants, mild abdominal tenderness, in all quadrants, Vital Signs: 19:44 BP 160 / 96; Pulse 89; Resp 16; Temp 98.4; Pulse Ox 100% on R/A; Pain 10/10; dd2 20:45 BP 121 / 77; Pulse 81; Resp 18; Pulse Ox 95% on R/A; cc6 21:30 BP 140 / 79; Pulse 85; Resp 16; Pulse Ox 96% on R/A; cc6 22:36 BP 121 / 92; Pulse 88; Resp 18; Pulse Ox 100% on R/A; cc6 19:44 Pain Scale: Adult dd2 MDM: 19:32 Medical Screening Exam initiated kb 23:08 Differential diagnosis: Urinary retention, UTI, kidney stone. Data reviewed: vital kb signs, nurses notes. Historians other than the Patient: Spouse/Significant Other: Spouse. Counseling: I had a detailed discussion with the patient and/or guardian regarding the historical points, exam findings, and any diagnostic results supporting the discharge/admit diagnosis, lab results, radiology results, the need for outpatient follow up, a family practitioner, to return to the emergency department if symptoms worsen or persist or if there are any questions or concerns that arise at home. 05/12 19:45 Order name: CBC with Diff; Complete Time: 22:03 kb 05/12 19:45 Order name: CMP; Complete Time: 20:58 kb 05/12 19:45 Order name: UA Rfx Gabriele Cult if indicated; Complete Time: 22:03 kb 05/12 21:49 Order name: CBC Smear Scan; Complete Time: 22:03 EDMS 05/12 19:45 Order name: CT Stone Protocol; Complete Time: 22:03 kb 05/12 19:45 Order name: IV Saline Lock; Complete Time: 20:21 kb 05/12 19:45 Order name: Labs collected and sent; Complete Time: 20:21 kb 05/12 19:45 Order name: Bladder Scanner; Complete Time: 21:08 kb Administered Medications: 23:28 Not Given (Physician Discretion): morphineor iv 2 mg IVP once over 4 mins vc1 23:28 Not Given (Physician Discretion): ondansetron 4 mg IVP once; over 2 minutes vc1 Disposition: 05/13 04:39 Co-signature as Attending Physician, Maikel Rene DO I reviewed the patient's care tt7 provided by the Advanced Practice Provider and agree with the diagnosis and treatment plan. Disposition Summary: 05/12/25 23:09 Discharge Ordered Notes: Location: Home kb Condition: Stable kb Diagnosis - Difficulty urinating kb Followup: kb - With: Emergency Department - When: As needed - Reason: Worsening of condition Followup: kb - With: Private Physician - When: 2 - 3 days - Reason: Recheck today's complaints, Continuance of care, Re-evaluation by your physician Discharge Instructions: - Discharge Summary Sheet kb - Dysuria kb Forms: - Medication Reconciliation Form kb - Antibiotic Education kb - Prescription Opioid Use kb - Patient Portal Instructions kb - Leadership Thank You Letter kb Signatures: Dispatcher [employer] EDMS Ramandeep Mcdonough, CUSTOMER CONSULTANT-C CUSTOMER CONSULTANT-Mikki Sanchez, RN RN cc6 JERZY BARRON RN RN dd2 Maikel Rene DO DO tt7 Gaby Newby RN vc1 Corrections: (The following items were deleted from the chart) 05/12 19:46 19:46 CBC+H.LAB.BRZ ordered. EDMS EDMS 19:46 19:46 COMPREHENSIVE METABOLIC PANEL+C.LAB.BRZ ordered. EDMS EDMS 19:46 19:46 UA Rfx Gabriele Cult if indicated+U.LAB.BRZ ordered. EDMS EDMS 19:46 19:46 Stone Protocol+CT.RAD.BRZ ordered. EDMS EDMS
--- NOTE | 2025-05-12 23:09 | ER ---
Nurse's Notes [facility] Name: Bella Barron Age: 64 yrs Sex: Female : 1960 Arrival Date: 05/12/2025 Time: 19:26 Bed 16 Private MD: Diagnosis: Difficulty urinating Presentation: 05/12 19:42 Chief complaint: Patient states: UNABLE TO URINATE MUCH SINCE LAST NIGHT. PT REPORTS dd2 BLADDER FEELS FULL AND BODY ACHES. Coronavirus screen: At this time, the client does not indicate any symptoms associated with coronavirus-19. Ebola Screen: No symptoms or risks identified at this time. Risk Assessment: Do you want to hurt yourself or someone else? Patient reports no desire to harm self or others. Onset of symptoms was May 11, 2025. 19:42 Method Of Arrival: Wheelchair dd2 19:42 Acuity: OLEG 3 dd2 19:44 Initial Sepsis Screen: Does the patient meet any 2 criteria? No. Patient's initial dd2 sepsis screen is negative. Does the patient have a suspected source of infection? No. Patient's initial sepsis screen is negative. Triage Assessment: 19:44 General: Appears in no apparent distress. uncomfortable, Behavior is calm, cooperative, dd2 appropriate for age. Pain: Complains of pain in abdomen. : Reports inability to void, since 05/11/2025. Historical: - Allergies: 19:44 bismuth subsalicylate; dd2 19:44 ceftriaxone; dd2 19:44 Ciprofloxacin; dd2 19:44 Egg Derived; dd2 19:44 Iodine; dd2 19:44 LACTASE; dd2 19:44 Promethazine; dd2 - PMHx: 19:44 cirrhosis of liver; Crohn's Disease; hypotension; kidney disease; Liver transplant (Jul); trach removed Jun 2022; - PSHx: 19:44 bowel resection; Cholecystectomy; Colectomy; left shoulder replacement; liver dd2 transplant; - Immunization history:: Adult Immunizations unknown. - Infectious Disease History:: Denies. - Social history:: Smoking status: Patient reports the use of cigarette tobacco products, smokes one pack cigarettes per day. Screenin:36 [facility] ED Fall Risk Assessment (Adult) History of falling in the last 3 months, cc6 including since admission No falls in past 3 months (0 pts) Confusion or Disorientation No (0 pts) Intoxicated or Sedated No (0 pts) Impaired Gait No (0 pts) Mobility Assist Device Used No (0 pt) Altered Elimination Yes (1 pt) Score/Fall Risk Level 0 - 2 = Low Risk Oriented to surroundings, Maintained a safe environment, Educated pt \\T\\ family on fall prevention, incl call for assistance when getting out of bed. Abuse screen: Denies threats or abuse. Denies injuries from another. Nutritional screening: No deficits noted. Tuberculosis screening: No symptoms or risk factors identified. Assessment: 19:39 General: Appears in no apparent distress. uncomfortable, Behavior is calm, cooperative. cc6 Pain: Complains of pain in abdomen, right foot and left foot Pain does not radiate. Pain currently is 7 out of 10 on a pain scale. Quality of pain is described as crampy. Neuro: Level of Consciousness is awake, alert, obeys commands, Oriented to person, place, time, situation, Appropriate for age. Cardiovascular: Patient's skin is warm and dry. Respiratory: Airway is patent Respiratory effort is even, unlabored, Respiratory pattern is regular, symmetrical. GI: Abdomen is flat, non-distended, Bowel sounds present X 4 quads. Abd is soft and non tender X 4 quads. : No signs and/or symptoms were reported regarding the genitourinary system. EENT: No signs and/or symptoms were reported regarding the EENT system. Derm: No signs and/or symptoms reported regarding the dermatologic system. Musculoskeletal: Circulation, motion, and sensation intact. Range of motion: intact in all extremities. 22:59 Reassessment: offered Tylenol and ibuprofen for pain states "if I don't have morphine cc6 I'm leaving." Janelle, SHIP PAINTER HELPER aware. Vital Signs: 19:44 BP 160 / 96; Pulse 89; Resp 16; Temp 98.4; Pulse Ox 100% on R/A; Pain 10/10; dd2 20:45 BP 121 / 77; Pulse 81; Resp 18; Pulse Ox 95% on R/A; cc6 21:30 BP 140 / 79; Pulse 85; Resp 16; Pulse Ox 96% on R/A; cc6 22:36 BP 121 / 92; Pulse 88; Resp 18; Pulse Ox 100% on R/A; cc6 19:44 Pain Scale: Adult dd2 ED Course: 19:31 Patient arrived in ED. mr 19:32 Ramandeep Mcdonough [facility]-C [facility] kb 19:32 Maikel Rene DO is Attending Physician. kb 19:39 Provided Education on: use of call light. . cc6 19:39 Patient has correct armband on for positive identification. Bed in low position. Call cc6 light in reach. Side rails up X 1. 19:44 Triage completed. dd2 19:44 Arm band placed on right wrist. dd2 20:21 CBC with Diff Sent. kmf 20:21 CMP Sent. kmf 20:21 Inserted saline lock: 22 gauge in right antecubital area, using aseptic technique. f Blood collected. Flushed with 10 mL NS. 20:35 CT Stone Protocol In Process Unspecified. EDMS 20:58 Mikki Martinez, RN is Primary Nurse. cc6 21:39 UA Rfx Gabriele Cult if indicated Sent. cc6 23:36 No provider procedures requiring assistance completed. IV discontinued, intact, cc6 bleeding controlled, No redness/swelling at site. Pressure dressing applied. Administered Medications: 23:28 Not Given (Physician Discretion): morphineor iv 2 mg IVP once over 4 mins vc1 23:28 Not Given (Physician Discretion): ondansetron 4 mg IVP once; over 2 minutes vc1 Medication: 23:38 VIS not applicable for this client. cc6 Outcome: 23:09 Discharge ordered by MD. kb 23:36 Discharged to home via wheelchair, cc6 23:36 Condition: stable 23:36 Discharge instructions given to patient, Instructed on discharge instructions, follow up and referral plans. Demonstrated understanding of refused to sign discharge paper work. 23:39 Patient left the ED. cc6 Signatures: Dispatcher [employer] EDMI Ramandeep Mcdonough FNP-C [employer]O APPRAISER-Trungb Mary Ann Lopez, Reg Reg Marian Mao [facility] Mikki Martinez, RN RN cc6 JERZY BARRON RN RN dd2 Gaby Newby RN vc1
[2025-05-13 00:14] VITALS: TEMP 98.4
[2025-05-13 00:45] VITALS: BP 121/92; O2SAT 100
== END 2025-05-12 23:39 | disposition home or self-care (01) ==
LOC: ER 19:26
DX: R39.198 Other difficulties with micturition (principal); R10.9 Unspecified abdominal pain; Z88.1 Allergy status to other antibiotic agents; Z88.8 Allergy status to other drugs, medicaments and biological substances
CPT/HCPCS: 36415; 74176; 76377; 80053; 81001; 85025; 99284

== ENCOUNTER 2025-05-23 13:24 | Inpatient (IN) | payer OTHER ==
[2025-05-23 13:49] LABS: Absolute Lymphocytes (CBC) 0.8 K/uL (0.7-4.9); Hematocrit 25.8 % (36.0-45.0); Hemoglobin 8.2 g/dL (12.0-15.0); MCH 28.1 pg (27.0-35.0); MCHC 31.6 g/dL (32.0-36.0); MCV 88.8 fL (80-100); MPV 8.4 fL (7.6-11.3); Nucleated RBC Absolute Count 0.0 (0-0); Nucleated Red Blood Cells % 0.0 % (0-0); RBC Red Blood Cell Count 2.91 M/uL (3.86-4.86); White Blood Count 6.40 thou/uL (4.3-10.9)
--- NOTE | 2025-05-23 13:49 | RAD REPORT ---
EXAM: CT brain without contrast HISTORY: AMS, ecchymosis to forehead COMPARISON: 03/25/2022 TECHNIQUE: Multiple contiguous axial images were obtained and a CT of the brain without contrast. Sag ittal and coronal reformats were performed. One or more of the following dose reduction techniques were used: Automated exposure control, adjust ment of the mA and/or kV according to patient size, and/or iterative reconstruction. FINDINGS: No evidence of hydrocephalus, intracranial hemorrhage, or extra-axial fluid collection. Mild brain atrophy with mild periventricular and deep white matter chronic microvascular ischemic ch anges present. No evidence of midline shift or areas of brain edema. The calvarium is intact. 3 cm mucous retention cyst versus polyp right maxillary antrum. Paranasal si nuses and mastoids are otherwise clear. IMPRESSION: No evidence of acute intracranial abnormality.
[2025-05-23 13:58] LABS: PT Prothrombin Time 11.8 SECONDS (10-13.0); PTT, Activated Partial Thromb 25.3 SECONDS (27.2-37.4); Protime INR 1.05
[2025-05-23 14:06] LABS: ALT/SGPT 30 U/L (13-56); AST/SGOT 20 U/L (15-37); Albumin 2.8 g/dL (3.4-5.0); Albumin/Globulin Ratio 1.1 (1.1-1.8); Alkaline Phosphatase 118 U/L (45-117); Anion Gap 8.5 mEq/L (5.0-15.0); BUN Blood Urea Nitrogen 26 mg/dL (7-18); Globulin 2.5 g/dL (2.3-3.5); Glucose Level 88 mg/dL (74-106); Potassium 4.5 mEq/L (3.5-5.1)
[2025-05-23 14:58] LABS: Bilirubin Indirect, Calculated 0.1 mg/dL (0.2-0.8)
[2025-05-23 15:08] LABS: Urine Microscopic Reflex YN NO UMIC
[2025-05-23 15:23] LABS: METHAMPHETAM NEGATIVE (NEGATIVE); THC Cannibis POSITIVE (NEGATIVE)
[2025-05-23] MEDS ORDERED: NALOXONE HCL 2 MG/2 ML VIAL ONE (15:29)
--- NOTE | 2025-05-23 18:48 | ER ---
[facility]'s Notes [facility] Name: Bella Barron Age: 64 yrs Sex: Female : 1960 Arrival Date: 05/23/2025 Time: 13:24 Bed 4 Private MD: Diagnosis: Altered mental status, unspecified;Adverse effect of unspecified drugs, medicaments and biological substances-gabapentin;Weakness Presentation: 05/23 13:26 Chief complaint: EMS states: EMS called for unresponsive pt, family reports that she ph was walking around a few hours ago w/ a Gabapentin bottle, unsure of what mg how much she may have taken. VSS en route to ED, administered 2 mg Narcan w/ no improvement. Coronavirus screen: At this time, the client does not indicate any symptoms associated with coronavirus-19. Ebola Screen: No symptoms or risks identified at this time. Initial Sepsis Screen: Does the patient meet any 2 criteria? No. Patient's initial sepsis screen is negative. Does the patient have a suspected source of infection? No. Patient's initial sepsis screen is negative. Risk Assessment: Do you want to hurt yourself or someone else? Patient reports no desire to harm self or others. 13:26 Method Of Arrival: EMS: [facility] ph 13:26 Acuity: OLEG 2 ph 13:26 Onset of symptoms Onset of symptoms was May 23, 2025. cc6 Triage Assessment: 13:31 General: Appears in no apparent distress. Behavior is unresponsive. Pain: Unable to use ph pain scale. Patient is unresponsive. Neuro: Level of Consciousness is unresponsive. Cardiovascular: Capillary refill < 3 seconds in bilateral fingers Patient's skin is warm and dry. Respiratory: Airway is patent Respiratory effort is even, unlabored, Respiratory pattern is regular, symmetrical. Derm: Skin is pink, warm \T\ dry. Historical: - Allergies: 13:30 bismuth subsalicylate; ph 13:30 ceftriaxone; ph 13:30 Ciprofloxacin; ph 13:30 Egg Derived; ph 13:30 Iodine; ph 13:30 LACTASE; ph 13:30 Promethazine; ph - PMHx: 13:30 cirrhosis of liver; Crohn's Disease; hypotension; kidney disease; Liver transplant (Jul); trach removed Jun 2022; - PSHx: 13:30 bowel resection; Cholecystectomy; Colectomy; left shoulder replacement; liver ph transplant; - Immunization history:: Adult Immunizations unknown. - Infectious Disease History:: unable to obtain. - Social history:: Smoking status: unknown. - History obtained from: EMS. Screenin:26 [facility] ED Fall Risk Assessment (Adult) History of falling in the last 3 months, cc6 including since admission No falls in past 3 months (0 pts) Confusion or Disorientation Yes (5 pts) Intoxicated or Sedated Yes (3 pts) Impaired Gait Yes (1 pt) Mobility Assist Device Used No (0 pt) Altered Elimination No (0 pt) Score/Fall Risk Level 3 or more points = High Risk Oriented to surroundings, Maintained a safe environment, Educated pt \T\ family on fall prevention, incl call for assistance when getting out of bed, Hourly rounding (assess needs \T\ fall precautionary measures) done. Abuse screen: Denies threats or abuse. Denies injuries from another. Nutritional screening: No deficits noted. Tuberculosis screening: No symptoms or risk factors identified. Assessment: 13:44 Reassessment: SEE TRIAGE. cc6 14:20 Reassessment: eyes closed even and unlabored breathing. cc6 15:35 Reassessment: eyes closed even and unlabored breathng. cc6 16:33 Reassessment: eyes closed even and unlabored breathing. cc6 19:00 General: Appears in no apparent distress. unkempt, Behavior is unresponsive. Pain: vc1 Unable to use pain scale. Patient is unresponsive. Neuro: Lopez Agitation-Sedation Scale (RASS): -3 Moderate Sedation Level of Consciousness is unresponsive, Oriented to none. Cardiovascular: Heart tones S1 S2 present Capillary refill < 3 seconds Patient's skin is warm and dry. Respiratory: Airway is patent Respiratory effort is even, unlabored, Respiratory pattern is regular, symmetrical, Breath sounds are clear bilaterally. GI: Abdomen is round non-distended, Bowel sounds present X 4 quads. : No deficits noted. No signs and/or symptoms were reported regarding the genitourinary system. EENT: No deficits noted. No signs and/or symptoms were reported regarding the EENT system. Derm: Skin is intact, is healthy with good turgor, Skin is dry, Skin is normal, Skin temperature is warm. Musculoskeletal: No deficits noted. 20:00 Reassessment: Pt only responding to painful stimuli, unable to stay awake, unable to vc1 assist with any care. Provider notified pt will be admitted for altered mental status. 22:15 Reassessment: Patient appears in no apparent distress at this time. No changes from bm8 previously documented assessment. Patient and/or family updated on plan of care and expected duration. Pain level reassessed. Vital Signs: 13:26 BP 172 / 79; Pulse 75; Resp 17; Temp 98; Pulse Ox 100% on R/A; Weight 45.81 kg; ph 14:20 BP 139 / 77; Pulse 99; Resp 16; Pulse Ox 99% on R/A; cc6 15:35 BP 131 / 77; Pulse 68; Resp 14; Pulse Ox 100% on R/A; cc6 16:34 BP 132 / 74; Pulse 62; Resp 15; Pulse Ox 99% on R/A; cc6 19:00 BP 177 / 92; Pulse 64; Resp 15; Pulse Ox 100% ; vc1 20:00 BP 157 / 87; Pulse 63; Resp 16; Pulse Ox 100% ; vc1 22:05 BP 167 / 73; Pulse 60; Resp 17; Temp 98; Pulse Ox 100% ; Pain 0/10; vc1 23:22 BP 165 / 86; Pulse 61; Resp 17; Temp 98; Pulse Ox 100% ; Pain 0/10; bm8 22:05 Pain Scale: Adult vc1 23:22 Pain Scale: Adult bm8 ED Course: 13:25 Patient arrived in ED. eb 13:25 Beau Encarnacion MD is Attending Physician. rn 13:25 María Christianson RN is Primary Nurse. ph 13:30 Triage completed. ph 13:31 Arm band placed on Patient placed in an exam room, on a stretcher, on pulse oximetry. ph 13:39 Acetaminophen Sent. cc6 13:39 Basic Metabolic Panel Sent. cc6 13:39 CBC with Diff Sent. cc6 13:39 ETOH Level Sent. cc6 13:39 Hepatic Function Sent. cc6 13:39 PT-INR Sent. cc6 13:39 Ptt, Activated Sent. cc6 13:39 Salicylate Sent. cc6 13:39 Urine Drug Screen Sent. cc6 13:39 AMMONIA Sent. cc6 13:42 CT Head Brain wo Cont In Process Unspecified. EDMS 13:43 Mikki Martinez, RN is Primary Nurse. cc6 13:47 Patient has correct armband on for positive identification. Bed in low position. Call cc6 light in reach. Side rails up X2. 13:47 Maintain EMS IV. Dressing intact. Good blood return noted. Site clean \T\ dry. Gauge \T\ cc 6 site: 20G LAC. Flushed with 10 mL NS. 13:48 Salicylate Sent. cc6 13:48 Ptt, Activated Sent. cc6 13:48 PT-INR Sent. cc6 13:48 Hepatic Function Sent. cc6 13:48 ETOH Level Sent. cc6 13:48 CBC with Diff Sent. cc6 13:48 Basic Metabolic Panel Sent. cc6 13:48 Acetaminophen Sent. cc6 13:48 AMMONIA Sent. cc6 14:59 UA Rfx Gabriele Cult if indicated Sent. cc6 20:33 Attending Physician role handed off by Beau Encarnacion MD [facility] 20:33 James Rossi MD is Attending Physician. [facility] 20:33 Ny Laurent MD is Hospitalizing Provider. [facility] 23:24 Provided Education on: need for admission. 8 23:24 No provider procedures requiring assistance completed. Patient admitted, IV remains in bm8 place. Administered Medications: 15:39 Drug: Naloxone IVP 2 mg IVP once Route: IVP; Site: left antecubital; cc6 19:00 Follow up: Response: No adverse reaction; No change in condition vc1 Medication: 20:53 VIS not applicable for this client. vc1 Outcome: 18:47 Discharge ordered by . rn 20:34 Decision to Hospitalize by Provider. david 23:23 Admitted to Med/surg accompanied by nurse, accompanied by tech, via stretcher, room bm8 206, with chart, 23:23 Condition: stable 23:23 Instructed on follow up and referral plans. the need for admit, Demonstrated understanding of instructions, follow-up care, medications, 23:25 Patient left the ED. bm8 Signatures: Dispatcher [employer] EDMS James Rossi MD MD cha Nieto, Roman, MD MD rn Hall, Patricia, RN RN ph Botello, Elizabeth eb Calcote, Vanessa, RN RN vc1 Domenic Dawson RN RN bm8 Mikki Martinez RN RN cc6 Corrections: (The following items were deleted from the chart) 13:32 13:26 BP 172 / 79; Pulse 75bpm; Resp 17bpm; Pulse Ox 100% RA; Temp 98F; ph ph 13:46 13:44 Abuse screen: Denies threats or abuse. Denies injuries from another. cc6 cc6 13:46 13:44 [facility] ED Fall Risk Assessment (Adult) History of falling in the last 3 months, cc6 including since admission No falls in past 3 months (0 pts) Confusion or Disorientation Yes (5 pts) Intoxicated or Sedated Yes (3 pts) Impaired Gait Yes (1 pt) Mobility Assist Device Used No (0 pt) Altered Elimination No (0 pt) Score/Fall Risk Level 3 or more points = High Risk Oriented to surroundings, Maintained a safe environment, Educated pt \T\ family on fall prevention, incl call for assistance when getting out of bed, Hourly rounding (assess needs \T\ fall precautionary measures) done, cc6 13:46 13:44 Nutritional screening: No deficits noted. cc6 cc6 :46 13:44 Tuberculosis screening: No symptoms or risk factors identified. cc6 cc6
--- NOTE | 2025-05-23 18:48 | EDPHYS ---
Physician Documentation [facility] Name: Bella Barron Age: 64 yrs Sex: Female : 1960 Arrival Date: 05/23/2025 Time: 13:24 Bed 4 Private MD: ED Physician James Rossi HPI: 05/23 13:45 This 64 yrs old Female presents to ER via EMS with complaints of ams. rn 13:45 Patient presents with altered mental status, unknown onset. Spouse found her walking rn around with gabapentin bottle, presumed that she took too many of her gabapentin. Patient with history of cirrhosis with liver transplant a few years ago. Given 2 mg of Narcan without help. Airway protected, no other interventions by EMS.. Historical: - Allergies: 13:30 bismuth subsalicylate; ph 13:30 ceftriaxone; ph 13:30 Ciprofloxacin; ph 13:30 Egg Derived; ph 13:30 Iodine; ph 13:30 LACTASE; ph 13:30 Promethazine; ph - PMHx: 13:30 cirrhosis of liver; Crohn's Disease; hypotension; kidney disease; Liver transplant (Jul); trach removed Jun 2022; - PSHx: 13:30 bowel resection; Cholecystectomy; Colectomy; left shoulder replacement; liver ph transplant; - Immunization history:: Adult Immunizations unknown. - Infectious Disease History:: unable to obtain. - Social history:: Smoking status: unknown. - History obtained from: EMS. ROS: 13:45 Unable to obtain ROS due to altered mental status, rn Exam: 13:45 Constitutional: This is a well developed, well nourished patient who is somnolent, rn snoring but moves all 4 extremities, withdraws from pain Head/Face: Normocephalic, atraumatic. Eyes: Pupils 3 mm, equal Cardiovascular: Regular rate and rhythm. No pulse deficits. Respiratory: No increased work of breathing, no retractions or nasal flaring. Abdomen/GI: Soft, non-tender MS/ Extremity: Pulses equal, no cyanosis. Neurovascular intact. Full, normal range of motion. Equal circumference. Neuro: Somnolent, mumbles but no comprehensible speech. Moves all 4 extremities and withdraws from pain. 16:33 ECG was reviewed by the Attending Physician. rn Vital Signs: 13:26 BP 172 / 79; Pulse 75; Resp 17; Temp 98; Pulse Ox 100% on R/A; Weight 45.81 kg; ph 14:20 BP 139 / 77; Pulse 99; Resp 16; Pulse Ox 99% on R/A; cc6 15:35 BP 131 / 77; Pulse 68; Resp 14; Pulse Ox 100% on R/A; cc6 16:34 BP 132 / 74; Pulse 62; Resp 15; Pulse Ox 99% on R/A; cc6 19:00 BP 177 / 92; Pulse 64; Resp 15; Pulse Ox 100% ; vc1 20:00 BP 157 / 87; Pulse 63; Resp 16; Pulse Ox 100% ; vc1 22:05 BP 167 / 73; Pulse 60; Resp 17; Temp 98; Pulse Ox 100% ; Pain 0/10; vc1 23:22 BP 165 / 86; Pulse 61; Resp 17; Temp 98; Pulse Ox 100% ; Pain 0/10; bm8 22:05 Pain Scale: Adult vc1 23:22 Pain Scale: Adult bm8 MDM: 13:26 Medical Screening Exam initiated rn 15:22 Historians other than the Patient: Spouse/Significant Other: Spouse is here, states saw rn her walking around acting funny today, unknown last known normal. States patient did not want him to call EMS but she got sleepy here so called ambulance. He states that the gabapentin bottle was still pretty much full and does not think she took anything other than her other prescribed medications. States bruise on forehead was from recent fall out of bed.. 16:24 ED course: Patient is a little bit more alert, will give her more time to wake up and rn reassess. CT head is normal. Labs otherwise unremarkable and seem at baseline.. 18:30 Differential Diagnosis: CVA, electrolyte abnormality, hypoglycemia, intracranial bleed, rn overdose, seizure, UTI, volume depletion. Data reviewed: vital signs, nurses notes, lab test result(s), EKG, radiologic studies, CT scan, and as a result, I will discharge patient. Independent interpretation of the following test(s) in the Emergency Department EKG: See my EKG interpretation above CT Scan: My interpretation is CT head images negative for acute hemorrhage per my interpretation. rat trapper: rate is 62 beats/min, Rhythm is normal sinus rhythm, regular, with no ectopy, Interpretation: normal rate, normal rhythm. Counseling: I had a detailed discussion with the patient and/or guardian regarding the historical points, exam findings, and any diagnostic results supporting the discharge/admit diagnosis, lab results, radiology results, the need for outpatient follow up, to return to the emergency department if symptoms worsen or persist or if there are any questions or concerns that arise at home. Response to treatment: the patient's symptoms have markedly improved after treatment. ED course: Patient much more alert, awake and talking now, she does not recall what happened, states she needs to urinate. Much more alert and stable vital signs. Possible overdose or accidental overdose of untestable medication or prescription.. 18:35 External Records Reviewed: Review of previous ED records show chronic anemia that waxes rn and wanes. No evidence of bleeding here. No blood in stool. No hematemesis.. Care significantly affected by the following chronic conditions: Liver Disease, Chronic anemia. 05/23 13:26 Order name: Acetaminophen; Complete Time: 15:14 rn 05/23 13:26 Order name: Basic Metabolic Panel; Complete Time: 15:14 rn 05/23 13:26 Order name: CBC with Diff; Complete Time: 14:38 rn 05/23 13:26 Order name: ETOH Level; Complete Time: 15:14 rn 05/23 13:26 Order name: Hepatic Function; Complete Time: 15:14 rn 05/23 13:26 Order name: PT-INR; Complete Time: 14:38 rn 05/23 13:26 Order name: Ptt, Activated; Complete Time: 14:38 rn 05/23 13:26 Order name: Salicylate; Complete Time: 14:38 rn 05/23 13:26 Order name: Urine Drug Screen; Complete Time: 15:23 rn 05/23 13:26 Order name: AMMONIA; Complete Time: 14:38 rn 05/23 14:37 Order name: UA Rfx Gabriele Cult if indicated; Complete Time: 15:14 rn 05/23 22:22 Order name: CBC with Automated Diff EDMS 05/23 22:22 Order name: CBC with Automated Diff EDMS 05/23 22:22 Order name: CBC with Automated Diff EDMS 05/23 22:22 Order name: Comprehensive Metabolic Panel EDMS 05/23 22:22 Order name: Comprehensive Metabolic Panel EDMS 05/23 22:22 Order name: Comprehensive Metabolic Panel EDMS 05/23 22:22 Order name: Magnesium EDMS 05/23 22:22 Order name: Magnesium EDMS 05/23 22:22 Order name: Magnesium EDMS 05/23 22:22 Order name: Phosphorus EDMS 05/23 22:22 Order name: Phosphorus EDMS 05/23 22:22 Order name: Phosphorus EDMS 05/23 13:26 Order name: CT Head Brain wo Cont; Complete Time: 13:51 rn 05/23 13:26 Order name: EKG - Nurse/Tech; Complete Time: 16:00 rn 05/23 13:26 Order name: IV Saline Lock; Complete Time: 13:39 rn 05/23 13:26 Order name: Labs collected and sent; Complete Time: 13:39 rn 05/23 13:26 Order name: Suicide Screening ([place]); Complete Time: 22:16 rn EC:33 Rate is 63 beats/min. Rhythm is regular. QRS [place] is Normal. NV interval is normal. QRS rn interval is normal. QT interval is normal. No Q waves. T waves are Normal. No ST changes noted. Clinical impression: Normal ECG. Interpreted by me. Administered Medications: 15:39 Drug: Naloxone IVP 2 mg IVP once Route: IVP; Site: left antecubital; cc6 19:00 Follow up: Response: No adverse reaction; No change in condition vc1 Disposition: 18:34 Critical Care:. rn Disposition Summary: 05/23/25 20:34 Hospitalization Ordered Notes: Hospitalization Status: Observation david Provider: Ny Laurent cha Location: Telemetry/MedSurg (observation)(05/23/25 20:34) david Condition: Fair(05/23/25 20:34) david Problem: new(05/23/25 20:34) david Symptoms: have improved(05/23/25 20:34) david Bed/Room Type: Standard david Room Assignment: 206(05/23/25 22:23) vk Diagnosis - Altered mental status, unspecified(05/23/25 20:34) david - Adverse effect of unspecified drugs, medicaments and biological substances - david gabapentin - Weakness david Forms: - Medication Reconciliation Form david - SBAR form david - Leadership Thank You Letter david Critical care time excluding procedures: 18:34 Critical care time: Bedside Care: 30 minutes, Family Intervention: 5 minutes. Total rn time: 35 minutes Signatures: Dispatcher [employer] EDMS James Rossi MD MD cha Nieto, Roman, MD MD rn Hall, Patricia, RN RN Michelle Samuel Cassandra, AMARILIS RN cc6 Gaby Newby RN vc1 Corrections: (The following items were deleted from the chart) 13:27 13:27 ACETAMINOPHEN+C.LAB.BRZ ordered. EDMS EDMS 13:27 13:27 BASIC METABOLIC PANEL+C.LAB.BRZ ordered. EDMS EDMS 13:27 13:27 CBC+H.LAB.BRZ ordered. EDMS EDMS 13:27 13:27 ETHANOL+C.LAB.BRZ ordered. EDMS EDMS 13:27 13:27 HEPATIC FUNCTION+C.LAB.BRZ ordered. EDMS EDMS 13:27 13:27 PROTIME (+INR)+COAG.LAB.BRZ ordered. EDMS EDMS 13:27 13:27 PTT, ACTIVATED+COAG.LAB.BRZ ordered. EDMS EDMS 13:27 13:27 SALICYLATE+C.LAB.BRZ ordered. EDMS EDMS 13:27 13:27 URINE DRUG SCREEN+UC.LAB.BRZ ordered. EDMS EDMS 13:27 13:27 AMMONIA+C.LAB.BRZ ordered. EDMS EDMS 13:27 13:27 Head Brain Wo Cont+CT.RAD.BRZ ordered. EDMS EDMS 20:33 18:47 Home rn david 20:33 18:47 new rn david 20:33 18:47 have improved rn david 20:33 18:47 Stable rn david 20:33 18:47 Altered mental status, unspecified rn david 20:33 18:47 Non-toxic accidental overdose rn david 22:23 20:34 david vk
[2025-05-23] MEDS ORDERED: ONDANSETRON 4 MG/2 ML VIAL IV PRN (22:18)
--- NOTE | 2025-05-23 23:16 | P.HP ---
Certification for Inpatient Patient admitted to: Observation With expected LOS: <2 Midnights Patient will require the following post-hospital care: None Practitioner: I am a practitioner with admitting privileges, knowledge of patient current condition, hospital course, and medical plan of care. Services: Services provided to patient in accordance with Admission requirements found in Title 42 Section 412.3 of the Code of Federal Regulations Patient History Date of Service: 05/23/25 Reason for admission: Altered mental status, CAM, possible overdose from gabapentin. History of Present Illness: Patient is a 64-year-old female with multiple past medical history including neuropathy, insomnia, Parkinson's disease, CKD, anemia, liver cirrhosis, Crohn's disease, chronic thrombocytopenia secondary to liver cirrhosis, gout, brought to the ER today due to altered mental status. En-route by EMS to ER, 2 mg of Narcan given with no effect. Patient still remains altered while in ER, had CT of the head done in ER impression no evidence of acute intracranial abnormality. Patient ammonia is 21. During admission assessment, patient still remain altere d, and no family member available to provide any history at this time. My H&P is based on report received from the ER Dr. Rossi, and from patient EMR. According to report received, states patient spouse found her walking around the house with gabapentin bottle, presumed that she took too many of her gabapentin. Patient with history of liver cirrhosis with liver transplant a few years ago. On admission assessment, patient could open her eyes tries to communicate but could not understand what she was saying, respond to her name calling. Allergies bismuth subsalicylate [From Pepto-Bismol] Allergy (Verified 03/14/22 15:37) Nausea/Vomiting ceftriaxone [From Rocephin] Allergy (Verified 10/08/21 03:16) Anaphylaxis iodine Allergy (Verified 10/08/21 03:16) Anaphylaxis promethazine [From Phenergan] Allergy (Verified 10/08/21 03:16) Itching ciprofloxacin Adverse Reaction (Verified 01/17/22 08:20) Hives/Rash lactase [From Dairy Aid] Adverse Reaction (Verified 01/21/22 18:19) Nausea/Vomiting Fish Allergy (Uncoded 10/10/20 20:17) Rash Home Medications: Ondansetron [Zofran (Odt)*] 4 mg PO DAILY PRN 10/09/21 Rifaximin [Xifaxan] 550 mg PO BID 10/09/21 Spironolactone [Aldactone*] 50 mg PO DAILY 10/09/21 Ubrogepant [Ubrelvy] 100 mg PO SEECOM PRN 10/09/21 Gabapentin 300 mg PO BID 12/04/21 Ramelteon 8 mg PO BEDTIME 12/05/21 traMADol HCL [Ultram*] 50 mg PO Q6H PRN #10 tab 12/30/21 ARIPiprazole [Abilify*] 5 mg PO BEDTIME 01/17/22 Diphenoxylate HCl/Atropine [Diphenoxylate-Atrop 2.5-0.025] 1 each PO DAILY 01/17/22 Fluoxetine HCl [Prozac*] 20 mg PO DAILY 01/17/22 Furosemide [Lasix*] 20 mg PO BID 01/17/22 Ciprofloxacin HCl 500 mg PO BID #20 tablet 01/24/22 Hydrocort Acetate Suppos [Anucort-Hc Suppository*] 25 mg TN DAILY #30 supp 01/24/22 metroNIDAZOLE [Flagyl] 500 mg PO Q8H #30 tablet 01/24/22 nadoloL [Corgard*] 20 mg PO DAILY #30 tab 01/24/22 Vancomycin Oral Soln [Vancocin HCl*] 10 ml PO QID 14 Days #560 ml 03/16/22 metroNIDAZOLE [Flagyl*] 500 mg PO Q6HR #56 tab 03/16/22 - Past Medical/Surgical History Diabetic: No -: Crohn's Disease -: Chronic liver cirrhosis with TIPS procedure -: Depression with anxiety -: Neuropathy -: Insomnia -: Parkinson's -: CKD 3 -: Anemia chronic disease -: Chronic 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 -: Gout -: Insomnia -: Gout -: multiple abdominal surgery due to Crohn's -: TIPS procedure -: Bleeding esophageal varices surgery Psychosocial/ Personal History: Patient disabled, lives with family - Family History Mother -: Blood disorders Notes: recently from blood disease Father -: Heart disease - Social History Smoking Status: Unknown if ever smoked Alcohol use: No CD- Drugs: No Caffeine use: Yes Place of Residence: Home Review of Systems is unable to be obtained (Unable to complete review of systems at this time due to patient altered mental status.) Physical Examination - Physical Exam General: Oriented x1 (Patient alert and oriented to her name), Other (Altered mental status.) HEENT: Atraumatic, Normocephalic, PERRLA, Mucous membr. moist/pink, Sclerae nonicteric Neck: Supple, 2+ carotid pulse no bruit, JVD not distended, No Thyromegaly, No LAD, Without JVD or thyroid abnormality Respiratory: Clear to auscultation bilaterally, Normal air movement Cardiovascular: No edema, Normal pulses, Regular rate/rhythm, Normal S1 S2, No gallops, No rubs, No murmurs Capillary refill: <2 Seconds Gastrointestinal: Normal bowel sounds, No tenderness, No masses, No rebound, No guarding, Hepatomegaly (Mild hepatomegaly.) Musculoskeletal: No clubbing, No swelling, No contractures, No erythema, No war mth Integumentary: No rashes, No breakdown, No significant lesion, No erythema, No warmth, No cyanosis Neurological: Other (Unable to assess at this time due to patient altered mental status.) - Studies Laboratory Data (last 24 hrs) 05/23/25 05/23/25 05/23/25 13:35 13:35 13:35 WBC 6.40 Hgb 8.2 L Hct 25.8 L Plt Count 134 L PT 11.8 INR 1.05 APTT 25.3 L Sodium 143 Potassium 4.5 BUN 26 H Creatinine 1.26 H Glucose 88 Total Bilirubin 0.3 AST 20 ALT 30 Alkaline Phosphatase 118 H Female Exam - Breasts Breasts: Normal configuration, Normal contours, Symmetrical Assessment and Plan - Plan Patient brought to the ER due to altered mental status, presumed to be from gabapentin overdose. (1)Altered mental status/CAM. Patient altered mental status is presumed to be from gabapentin overdose. According to patient , states he found patient walking around the house with her gabapentin bottle. Patient had CT head done in ER with impression no evidence of acute intracranial abnormality. -Order MRI of the head/brain in a.m. with no contrast, just to make sure there is no other pathological findings which might be causing patient altered mental status. -Consult neurologist Dr. Levy. -N.p.o. at this time. -D5 1/2 NS at 100 mL/ hr. -Order follow-up CMP in the morning. (2) DVT prophylaxis. -Heparin 5K units SQ every 8 hours. (3)Patient home medications to be resumed when patient is fully awake, and able to tolerate p.o. intake. Discharge Plan: Home Plan to discharge in: 48 Hours - Advance Directives Does patient have a Living Will: No Does patient have a Durable POA for Healthcare: No - Code Status/Comfort Care Code Status: Full Code Critical Care: No Time Spent Managing Pts Care (In Minutes): 55
[2025-05-24] MEDS: D5 0.45 NS 1,000 ML IV SCH (00:50)
[2025-05-24] MEDS: HEPARIN 5000 UNIT/ML 1 ML VIAL SQ SCH (00:51)
[2025-05-24] MEDS ORDERED: HYDRALAZINE HCL 20 MG/ML VIAL IV ONE (01:19)
[2025-05-24 04:03] VITALS: O2SAT 100
[2025-05-24 06:44] LABS: Absolute Lymphocytes (CBC) 1.0 K/uL (0.7-4.9); Hematocrit 30.6 % (36.0-45.0); Hemoglobin 10.0 g/dL (12.0-15.0); MCH 28.2 pg (27.0-35.0); MCHC 32.7 g/dL (32.0-36.0); MCV 86.4 fL (80-100); MPV 7.5 fL (7.6-11.3); Nucleated RBC Absolute Count 0.0 (0-0); Nucleated Red Blood Cells % 0.0 % (0-0); RBC Red Blood Cell Count 3.54 M/uL (3.86-4.86); White Blood Count 6.30 thou/uL (4.3-10.9)
[2025-05-24 07:03] LABS: ALT/SGPT 34.0 U/L (13-56); AST/SGOT 21.0 U/L (15-37); Albumin 2.9 g/dL (3.4-5.0); Albumin/Globulin Ratio 1.0 (1.1-1.8); Alkaline Phosphatase 127.0 U/L (45-117); Anion Gap 8.2 mEq/L (5.0-15.0); BUN Blood Urea Nitrogen 17.0 mg/dL (7-18); Globulin 2.9 g/dL (2.3-3.5); Glucose Level 95.0 mg/dL (74-106); Magnesium 1.5 mg/dL (1.6-2.4); Potassium 4.2 mEq/L (3.5-5.1)
[2025-05-24] MEDS ORDERED: HYDROCODONE/APAP 5/325 MG TAB PO PRN (08:43)
[2025-05-24 08:44] LABS: C.diff Antigen/Toxin Ag neg : Tox neg (NEG : NEG); CDIFF INTERNAL NEG CONTROL White Background (WHITE BKGD); STOOL CONSISTENCY Liquid/Semi-Solid
--- NOTE | 2025-05-24 09:13 | P.PN ---
Date of Service: 05/24/25 Subjective: mentation improved back to baseline. Family states she was found walking around her home with gabapentin bottle in her hand and thinks she took too many She states she took too many "pain meds" Took them because she was in "alot of pain" No suicidal ideation. vitals stable Physical Exam: GEN: Alert, orientedx3, Tearful/Emotional CV: Regular rate and rhythm, no edema Pulm:Nonlabored respirations on room air, clear bilaterally ABD: soft, mild tenderness Problem List: Acute encephalopathy secondary to gabapentin CAM Chronic diarrhea Crohn's disease s/p ileocecal resection Chronic anemia Chronic thrombocytopenia secondary to liver cirrhosis [place] cirrhosis s/p liver transplant (2021) Parkinson's Disease Depression/Anxiety Hx Gout Hx Bleeding esophageal varices Hx CVA Acute encephalopathy secondary to gabapentin on admission, presents with altered mentation, decreased responsiveness. Spouse reportedly found patient walking around house with bottle of gabapentin. Presumed to have taken too many. CT head negative. MRI ordered on admission due to concern for CVA. Cancel MRI. Low threshold for MRI brain given improvement. Suspect AMS secondary to medication Neuro consulted on admission continue IV hydration IV ativan 0.5 x1 ordered for anxiety NPO for now. Check bedside swallow. If okay advance diet as tolerated CAM CR 1.26 on admission Continue IV hydration Monitor renal function, electrolytes improving Chronic diarrhea Crohn's disease s/p ileocecal resection has history of crohns disease, chronic diarrhea for several years confirm home meds, restart as appropriate c. diff negative. dc isolation. takes imodium had home, restart Chronic anemia Chronic thrombocytopenia secondary to liver cirrhosis [place] cirrhosis s/p liver transplant (2021) Has history of liver transplant [facility]. Daily labs Confirm home meds, restart as appropriate Parkinson's Disease Depression/Anxiety Hx Gout Hx Bleeding esophageal varices Hx CVA confirm home meds, restart as appropriate VTE: heparin sq Code: Full Dispo: Home Time Spent Managing Pts Care (In Minutes): 55
[2025-05-24] MEDS: LORazepam 2 MG/ML VIAL IV ONE ×2 (09:22→22:20)
[2025-05-24] MEDS: Magnesium Sulfate 2gm IVPB 2 G/50 ML BAG IV ONE (10:26)
[2025-05-24] MEDS: TRAMADOL HCL 50 MG TAB PO PRN (12:46)
[2025-05-24] MEDS: HYDRALAZINE HCL 20 MG/ML VIAL IV PRN (17:08)
[2025-05-24] MEDS: LOPERAMIDE HCL 2 MG CAPSULE PO PRN (17:08)
[2025-05-24] MEDS: DULOXETINE 30 MG CAP PO SCH (19:43)
[2025-05-24] MEDS: COLESTIPOL 1 GM TAB PO SCH (19:44)
[2025-05-24] MEDS: TRAZODONE 150 MG TAB PO SCH (19:44)
[2025-05-24] MEDS: BACLOFEN 10 MG TAB PO SCH (19:44)
[2025-05-24] MEDS: BUPROPION HCL 200 MG PO SCH (21:00)
[2025-05-25 05:40] LABS: Absolute Lymphocytes (CBC) 1.0 K/uL (0.7-4.9); Hematocrit 29.0 % (36.0-45.0); Hemoglobin 9.5 g/dL (12.0-15.0); MCH 28.2 pg (27.0-35.0); MCHC 32.7 g/dL (32.0-36.0); MCV 86.0 fL (80-100); MPV 8.1 fL (7.6-11.3); Nucleated RBC Absolute Count 0.0 (0-0); Nucleated Red Blood Cells % 0.0 % (0-0); RBC Red Blood Cell Count 3.37 M/uL (3.86-4.86); White Blood Count 5.50 thou/uL (4.3-10.9)
[2025-05-25 06:03] LABS: ALT/SGPT 28.0 U/L (13-56); AST/SGOT 17.0 U/L (15-37); Albumin 2.9 g/dL (3.4-5.0); Albumin/Globulin Ratio 1.1 (1.1-1.8); Alkaline Phosphatase 125.0 U/L (45-117); Anion Gap 7.0 mEq/L (5.0-15.0); BUN Blood Urea Nitrogen 11.0 mg/dL (7-18); Globulin 2.7 g/dL (2.3-3.5); Glucose Level 94.0 mg/dL (74-106); Magnesium 1.8 mg/dL (1.6-2.4); Potassium 4.0 mEq/L (3.5-5.1)
[2025-05-25] MEDS: MAGNESIUM SULFATE 1 gm IVPB 1 GM/100 ML BAG IV ONE (06:35)
[2025-05-25] MEDS: predniSONE 10 MG TAB PO SCH (09:09)
[2025-05-25 12:14] VITALS: BP 136/71; TEMP 98
--- NOTE | 2025-05-25 13:44 | P.DS ---
Admission Date: 05/24/25 Discharge Date: 05/25/25 Disposition: ROUTINE DISCHARGE Reason for Admission: Altered mental status, CAM, possible overdose from gabapentin. Hospital Course: Problem List: Acute encephalopathy secondary to gabapentin CAM Chronic diarrhea Crohn's disease s/p ileocecal resection Chronic anemia Chronic thrombocytopenia secondary to liver cirrhosis [place] cirrhosis s/p liver transplant (2021) Parkinson's Disease Depression/Anxiety Hx Gout Hx Bleeding esophageal varices Hx CVA 64-year-old female with multiple past medical history including neuropathy, insomnia, Parkinson's disease, CKD, anemia, liver cirrhosis, Crohn's disease, chronic thrombocytopenia secondary to liver cirrhosis, gout, brought to the ER due to altered mental status. En-route by EMS to ER, 2 mg of Narcan given with no effect. Patient reported stop taking multiple doses of gabapentin. CT of the head done in ER showed no evidence of acute intracranial abnormality, ammonia level checked was normal. Patient was still confused in the ED during assessment for admission. Patient admitted to the medical floor and treated with supportive measures. Gabapentin held, other home medications continued. Patient mental status impr giancarlo. Diet was advanced to solid consistently which she tolerated. Patient also ambulated in the hallway. She has improved to baseline and deemed stable for discharge. Patient advised to avoid gabapentin. Other home medications resumed on discharge. Vital Signs/Physical Exam: Temp Pulse Resp BP Pulse Ox 98.0 F 72 20 136/71 91 05/25/25 12:00 05/25/25 12:00 05/25/25 12:00 05/25/25 12:00 05/25/25 12:00 General: Alert, In no apparent distress, Oriented x3 HEENT: Mucous membr. moist/pink, Sclerae nonicteric Neck: Supple, JVD not distended Respiratory: Clear to auscultation bilaterally, Normal air movement Cardiovascular: No edema, Regular rate/rhythm, Normal S1 S2 Gastrointestinal: Soft and benign, Non-distended, No tenderness Musculoskeletal: No swelling, No tenderness Integumentary: No rashes, No cyanosis Neurological: Normal strength at 5/5 x4 extr Laboratory Data at Discharge: WBC 5.50 thou/uL (4.3-10.9) 05/25/25 05:07 Hgb 9.5 g/dL (12.0-15.0) L 05/25/25 05:07 Hct 29.0 % (36.0-45.0) L 05/25/25 05:07 Plt Count 155 thou/uL (152-406) 05/25/25 05:07 PT 11.8 SECONDS (10-13.0) 05/23/25 13:35 INR 1.05 05/23/25 13:35 APTT 25.3 SECONDS (27.2-37.4) L 05/23/25 13:35 Sodium 143 mEq/L (136-145) 05/25/25 05:07 Potassium 4.0 mEq/L (3.5-5.1) 05/25/25 05:07 BUN 11 mg/dL (7-18) 05/25/25 05:07 Creatinine 1.05 mg/dL (0.55-1.02) H 05/25/25 05:07 Glucose 94 mg/dL (74-106) 05/25/25 05:07 Phosphorus 3.2 mg/dL (2.5-4.9) 05/25/25 05:07 Magnesium 1.8 mg/dL (1.6-2.4) 05/25/25 05:07 Total Bilirubin 0.3 mg/dL (0.2-1.0) 05/25/25 05:07 AST 17 U/L (15-37) 05/25/25 05:07 ALT 28 U/L (13-56) 05/25/25 05:07 Alkaline Phosphatase 125 U/L (45-117) H 05/25/25 05:07 Home Medications: Aspirin [Aspirin EC 81 MG] 81 mg PO DAILY 05/24/25 Baclofen [Lioresal*] 10 mg PO TID 05/24/25 Colestipol HCl [Colestid] 1 gm PO BID 05/24/25 Cyanocobalamin (Vitamin B-12) [Vitamin B-12] 500 mcg PO DAILY 05/24/25 Duloxetine HCl 30 mg PO BID 05/24/25 Tacrolimus [Prograf] 1 mg PO BID 05/24/25 Trazodone [Desyrel*] 150 mg PO BEDTIME 05/24/25 buPROPion HCL [Bupropion HCl Sr] 200 mg PO BID 05/24/25 lisinopriL [Lisinopril] 20 mg PO BID 05/24/25 predniSONE [Deltasone*] 10 mg PO DAILY 05/24/25 Loperamide [Imodium*] 2 mg PO Q4H PRN cap 05/25/25 ursodioL [Actigall*] 300 mg PO BID cap 05/25/25 Physician Discharge Instructions: 64-year-old female with multiple past medical history including neuropathy, insomnia, Parkinson's disease, CKD, anemia, liver cirrhosis, Crohn's disease, chronic thrombocytopenia secondary to liver cirrhosis, gout, brought to the ER due to altered mental status. En-route by EMS to ER, 2 mg of Narcan given with no effect. Patient reported stop taking multiple doses of gabapentin. CT of the head done in ER showed no evidence of acute intracranial abnormality, ammonia level checked was normal. Patient was still confused in the ED during assessm ent for admission. Patient admitted to the medical floor and treated with supportive measures. Gabapentin held, other home medications continued. Patient mental status improved. Diet was advanced to solid consistently which she tolerated. Patient also ambulated in the hallway. She has improved to baseline and deemed stable for discharge. Patient advised to avoid gabapentin. Other home medications resumed on discharge. Diet: AHA Activity: Fall precautions Followup: NONE,NONE [Primary Care Provider] - 1-2 Weeks Time spent managing pt's care (in minutes): 33
== END 2025-05-25 15:26 | disposition home or self-care (01) | DRG 917 ==
LOC: ER 13:24 → ERHOLD 22:14 → 2ND 22:37 → OBSVTOIN 05-24 16:23
PROVIDERS: ADMIT Hospitalist; ATTEND Internal Medicine
DX: T42.6X1A Poisoning by other antiepileptic and sedative-hypnotic drugs, accidental (unintentional), initial encounter (principal); G92.8 Other toxic encephalopathy; Z94.4 Liver transplant status; N17.9 Acute kidney failure, unspecified; M10.9 Gout, unspecified; G47.00 Insomnia, unspecified; F41.9 Anxiety disorder, unspecified; K74.60 Unspecified cirrhosis of liver; F32.A Depression, unspecified; K75.81 Nonalcoholic steatohepatitis (NASH); D69.59 Other secondary thrombocytopenia; K52.9 Noninfective gastroenteritis and colitis, unspecified; G20.A1 Parkinson's disease without dyskinesia, without mention of fluctuations; Z88.1 Allergy status to other antibiotic agents; Z88.8 Allergy status to other drugs, medicaments and biological substances; Z90.49 Acquired absence of other specified parts of digestive tract; Z96.612 Presence of left artificial shoulder joint; Z91.0120 Allergy to eggs, unspecified; Z79.899 Other long term (current) drug therapy; Z86.73 Personal history of transient ischemic attack (TIA), and cerebral infarction without residual deficits; Z79.82 Long term (current) use of aspirin; Z79.52 Long term (current) use of systemic steroids
CPT/HCPCS: 36415; 70450; 80048; 80053; 80076; 80143; 80179; 80307; 81003; 82077; 82140; 83735; 84100; 85025; 85610; 85730; 87324; 93005; 96374; 99291; 99292; G0378; J0360; J1644; J2312; J3475; J7512; J7799

== ENCOUNTER 2025-05-26 07:55 | Emergency (ER) | payer OTHER ==
[2025-05-26] MEDS ORDERED: LIDOCAINE 2% W/EPI 1:200,000 MPF 20 ML VIAL IM ONE (08:13)
[2025-05-26] MEDS ORDERED: TDAP (DIPHTH,PERTUSS(ACELL),TET VAC) 0.5 ML VIAL IMVAC ONE (08:13)
[2025-05-26] MEDS ORDERED: CEFAZOLIN SODIUM 1 GM/VIAL ONE (08:13)
[2025-05-26] MEDS ORDERED: NA CHLORIDE 0.9% 100 ML ONE (08:14)
[2025-05-26] MEDS ORDERED: NA CHLORIDE 0.9% 500 ML ONE (08:14)
[2025-05-26 08:48] LABS: Absolute Lymphocytes (CBC) 1.1 K/uL (0.7-4.9); Hematocrit 26.9 % (36.0-45.0); Hemoglobin 8.7 g/dL (12.0-15.0); MCH 28.3 pg (27.0-35.0); MCHC 32.3 g/dL (32.0-36.0); MCV 87.5 fL (80-100); MPV 7.8 fL (7.6-11.3); Nucleated RBC Absolute Count 0.0 (0-0); Nucleated Red Blood Cells % 0.0 % (0-0); RBC Red Blood Cell Count 3.08 M/uL (3.86-4.86); White Blood Count 7.80 thou/uL (4.3-10.9)
--- NOTE | 2025-05-26 08:57 | RAD REPORT ---
EXAMINATION: CT HEAD WITHOUT CONTRAST CT CERVICAL SPINE WITHOUT CONTRAST CLINICAL INDICATION: Head and neck injury status post fall. Head and neck pain TECHNIQUE: Axial CT images from the skull base to the vertex without intravenous contrast. Axial CT i mages through the cervical spine were obtained without intravenous contrast. Sagittal and coronal reformatted images were created from the data set. Coronal and sagittal reformatted images were creat ed from the data set. One or more of the following dose reduction techniques were used: Automated exposure control, adjustment of the mA and/or kV according to patient size, and/or iterative reconstr uction. Unless otherwise specified, incidental findings do not require dedicated imaging follow-up. [id number]. Comparison: December 2024 FINDINGS: An intracranial bleed is not seen. Ventricles are normal in caliber. No significant hypodensity within the brain No extra-axial fluid collection. No fluid within the sinuses/mastoids. Mucous retention cyst right maxillary sinus No fracture or dislocation is seen involving the cervical spine. Mild chronic posterior subluxation C3 on C4, C4 on C5 and C5 on C6. Small left paracentral disc herni ation C5-6. IMPRESSION: No acute intracranial abnormality noted A cervical fracture is not seen. 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
[2025-05-26] MEDS ORDERED: ONDANSETRON 4 MG/2 ML VIAL ONE (08:59)
[2025-05-26] MEDS ORDERED: FENTANYL CITR 100 MCG/2 ML ONE (09:00)
--- NOTE | 2025-05-26 09:04 | RAD REPORT ---
EXAM: CT CHEST, ABDOMEN AND PELVIS WITHOUT CONTRAST CLINICAL INDICATION: Chest and abdominal pain TECHNIQUE: CT chest, abdomen and pelvis was performed, without IV contrast, as per department protoco l. Axial, sagittal and coronal reconstructions were obtained. One or more of the following dose reduction techniques were used: Automated exposure control, adjustment of the mA and/or kV according to the patient size, and/or iterative reconstruction. Unless otherwise specified, incidental findings do not require dedicated imaging follow-up. The lack of IV and oral contrast limits evaluation of the mediastinum, adela, vessels, organs and lucio l. COMPARISON: March and April 2025 FINDINGS: No pulmonary contusion. A mediastinal hematoma not seen. Small right posterior diaphragmatic hernia containing fat. No pleural effusion. No pericardial effusion. Liver, spleen, pancreas, adrenals, kidneys and bladder do not demonstrate a traumatic injury. Evaluation of the pelvic bones very limited secondary to patient motion artifact. There is no evidence of diverticulitis. Post surgical changes involve the colon. Tiny nonobstructing renal calculi. Small renal cysts appear benign. No follow-up recommended. Mild sp lenomegaly. Post surgical changes of a hepatic transplant. IMPRESSION: No acute traumatic injury involving chest, abdomen/pelvis.
[2025-05-26 09:07] LABS: ALT/SGPT 26.0 U/L (13-56); AST/SGOT 12.0 U/L (15-37); Albumin 2.9 g/dL (3.4-5.0); Albumin/Globulin Ratio 0.9 (1.1-1.8); Alkaline Phosphatase 128.0 U/L (45-117); Anion Gap 11.3 mEq/L (5.0-15.0); BUN Blood Urea Nitrogen 35.0 mg/dL (7-18); Globulin 3.1 g/dL (2.3-3.5); Glucose Level 87.0 mg/dL (74-106); Potassium 4.3 mEq/L (3.5-5.1); Troponin High Sensitivity 9.5 pg/mL (<58.9)
--- NOTE | 2025-05-26 10:13 | EDPHYS ---
Physician Documentation [facility] Name: Bella Barron Age: 64 yrs Sex: Female : 1960 Arrival Date: 05/26/2025 Time: 07:55 Bed 8 Private MD: SARAH Physician James Rossi HPI: 05/26 08:13 This 64 yrs old Female presents to ER via EMS with complaints of Fall Injury. david Historical: - Allergies: 08:01 bismuth subsalicylate; ph 08:01 ceftriaxone; ph 08:01 Ciprofloxacin; ph 08:01 Egg Derived; ph 08:01 Iodine; ph 08:01 LACTASE; ph 08:01 Promethazine; ph - PMHx: 08:01 cirrhosis of liver; Crohn's Disease; kidney disease; hypotension; Liver transplant (Jul); trach removed Jun 2022; - PSHx: 08:01 bowel resection; Cholecystectomy; Colectomy; left shoulder replacement; liver ph transplant; - Immunization history:: Adult Immunizations unknown. - Infectious Disease History:: Denies. - Immunization history: Last tetanus immunization: - up to date. - Social history:: Smoking status: Patient reports the use of cigarette tobacco products, smokes one pack cigarettes per day. ROS: 09:56 Constitutional: Negative for fever, chills, and weight loss, Eyes: Negative for injury, david pain, redness, and discharge, Neck: Negative for injury, pain, and swelling, Cardiovascular: Negative for chest pain, palpitations, and edema, Respiratory: Negative for shortness of breath, cough, wheezing, and pleuritic chest pain, Abdomen/GI: Negative for abdominal pain, nausea, vomiting, diarrhea, and constipation, Back: Negative for injury and pain, : Negative for injury, bleeding, discharge, and swelling, MS/Extremity: Negative for injury and deformity, Skin: Negative for injury, rash, and discoloration, Neuro: Negative for headache, weakness, numbness, tingling, and seizure, Psych: Negative for depression, anxiety, suicide ideation, homicidal ideation, and hallucinations, Allergy/Immunology: Negative for hives, rash, and allergies, Endocrine: Negative for neck swelling, polydipsia, polyuria, polyphagia, and marked weight changes, Hematologic/Lymphatic: Negative for swollen nodes, abnormal bleeding, and unusual bruising, 09:56 ENT: Positive for ear pain, injury or acute deformity, laceration, of the pinna of left ear, Exam: 09:59 Constitutional: This is a well developed, well nourished patient who is awake, alert, david and in no acute distress. Head/Face: Normocephalic, atraumatic. Eyes: Pupils equal round and reactive to light, extra-ocular motions intact. Lids and lashes normal. Conjunctiva and sclera are non-icteric and not injected. Cornea within normal limits. Periorbital areas with no swelling, redness, or edema. Neck: Trachea midline, no thyromegaly or masses palpated, and no cervical lymphadenopathy. Supple, full range of motion without nuchal rigidity, or vertebral point tenderness. No Meningismus. Chest/axilla: Normal chest wall appearance and motion. Nontender with no deformity. No lesions are appreciated. Cardiovascular: Regular rate and rhythm with a normal S1 and S2. No gallops, murmurs, or rubs. Normal PMI, no JVD. No pulse deficits. Respiratory: Lungs have equal breath sounds bilaterally, clear to auscultation and percussion. No rales, rhonchi or wheezes noted. No increased work of breathing, no retractions or nasal flaring. Abdomen/GI: Soft, non-tender, with normal bowel sounds. No distension or tympany. No guarding or rebound. No evidence of tenderness throughout. Back: No spinal tenderness. No costovertebral tenderness. Full range of motion. Skin: Warm, dry with normal turgor. Normal color with no rashes, no lesions, and no evidence of cellulitis. Neuro: Awake and alert, GCS 15, oriented to person, place, time, and situation. Cranial nerves II-XII grossly intact. Motor strength 5/5 in all extremities. Sensory grossly intact. Cerebellar exam normal. Normal gait. Psych: Awake, alert, with orientation to person, place and time. Behavior, mood, and affect are within normal limits. 09:59 ENT: Examination of the other ear shows no obvious abnormality, complex right ear laceration. 10:11 ECG was reviewed by the Attending Physician. [facility] Vital Signs: 07:57 BP 117 / 59; Pulse 77; Resp 18; Temp 97.5; Pulse Ox 97% on R/A; Weight 62 kg; ph 09:00 BP 118 / 72; Pulse 79; Resp 18; Pulse Ox 98% on R/A; ph 10:08 BP 114 / 79; Pulse 81; Resp 16; Pulse Ox 97% on R/A; ph Yojana Coma Score: 08:00 Eye Response: spontaneous(4). Motor Response: obeys commands(6). Verbal Response: ph oriented(5). Total: 15. 09:00 Eye Response: spontaneous(4). Motor Response: obeys commands(6). Verbal Response: ph oriented(5). Total: 15. 10:08 Eye Response: spontaneous(4). Motor Response: obeys commands(6). Verbal Response: ph oriented(5). Total: 15. Trauma Score (Adult): 08:00 Eye Response: spontaneous(1); Verbal Response: oriented(1); Motor Response: obeys ph commands(2); Systolic BP: > 89 mm Hg(4); Respiratory Rate: 10 to 29 per min(4); Highland Score: 15; Trauma Score: 12 09:00 Eye Response: spontaneous(1); Verbal Response: oriented(1); Motor Response: obeys ph commands(2); Systolic BP: > 89 mm Hg(4); Respiratory Rate: 10 to 29 per min(4); Yojana Score: 15; Trauma Score: 12 10:08 Eye Response: spontaneous(1); Verbal Response: oriented(1); Motor Response: obeys ph commands(2); Systolic BP: > 89 mm Hg(4); Respiratory Rate: 10 to 29 per min(4); Yojana Score: 15; Trauma Score: 12 MDM: 07:58 Medical Screening Exam initiated david 10:01 Differential diagnosis: abrasion, closed head injury, contusion, fracture, laceration, david multiple trauma, sprain, strain. Data reviewed: vital signs, nurses notes, EMS record, lab test result(s), EKG, radiologic studies, CT scan, plain films. Consideration of Admission/Observation Escalation of care including admission/observation considered. I considered the following discharge prescriptions or medication management in the emergency department Medications were administered in the Emergency Department. See MAR. Independent interpretation of the following test(s) in the Emergency Department EKG: See my EKG interpretation above. Test considered but Not performed: Ultrasound no fast exam. Care significantly affected by the following chronic conditions: cirrhosis, renal disease, liver transplant. 05/26 08:09 Order name: CBC with Diff; Complete Time: 09:45 [facility] 05/26 08:09 Order name: CMP; Complete Time: 09:45 [facility] 05/26 08:09 Order name: Troponin High Sensitivity; Complete Time: 09:45 [facility] 05/26 08:32 Order name: Head C Spine Mpr Wo Con; Complete Time: 09:45 EDMS 05/26 08:33 Order name: Chest Abd Pelvis Wo Con; Complete Time: 09:45 EDMS 05/26 09:12 Order name: Shoulder Left (2 View) XRAY [facility] 05/26 09:12 Order name: Elbow Left 3 View XRAY [facility] 05/26 09:47 Order name: Knee Right 3 View XRAY [facility] 05/26 08:09 Order name: EKG - Nurse/Tech; Complete Time: 09:36 [facility] 05/26 08:09 Order name: Suture Tray at Bedside; Complete Time: 08:22 [facility] 05/26 08:47 Order name: Wound dressing: saline gauze; Complete Time: 10:01 [facility] EC:11 Rate is 76 beats/min. Rhythm is regular. QRS Lincoln is Normal. IA interval is normal. QRS david interval is normal. QT interval is normal. No Q waves. T waves are Normal. No ST changes noted. Clinical impression: NSR w/ Non-specific ST/T Changes. Interpreted by me. Reviewed by me. Administered Medications: 09:08 Drug: NS 0.9% IV 500 ml 500 ml IV at 1 bolus once; to be given as a bolus over 30 ph minutes Volume: 500 ml; Route: IV; Rate: 1 bolus; Site: right antecubital; 09:40 Follow up: Response: No adverse reaction; IV Status: Completed infusion; IV Intake: ph 500ml 09:08 Drug: ceFAZolin IVPB 1 grams IVPB once Route: IVPB; Site: right antecubital; ph 09:40 Follow up: Response: No adverse reaction; IV Status: Completed infusion ph 09:10 Drug: fentaNYL (PF) IVP 25 mcg IVP once Route: IVP; Site: right antecubital; ph 09:25 Follow up: Response: No adverse reaction; Pain is decreased ph 09:10 Drug: Ondansetron IVP 4 mg IVP once; over 2 minutes Route: IVP; Site: right antecubital;ph 10:44 Follow up: Response: No adverse reaction ph 10:04 Not Given (Physician Discretion): llfznxxma-dcrjzhouhhb-3%: (1:100,000) 5 ml 20 ml ph Infiltration once; to bedside 10:04 Not Given (Vaccine UTD): boostrix tdap0.5 ml IM once; as a single dose ph 10:43 Drug: Tribune PO 5 mg-325 mg 1 tabs PO once Route: PO; ph 10:43 Follow up: Response: No adverse reaction; Medication administered at discharge. ph Disposition Summary: 05/26/25 10:12 Discharge Ordered Notes: Location: Home david Problem: new david Symptoms: have improved david Condition: Fair david Diagnosis - Laceration without foreign body of left ear - complex, through and through , david cartiledge involvement - Fall on same level, unspecified david - Anemia, unspecified david - Liver transplant status david - Contusion of left shoulder david - Pain in right knee david - Contusion of right knee david - Unspecified cirrhosis of liver - hx david - Abrasion of left elbow david Followup: david - With: Private Physician - When: 2 - 3 days - Reason: Recheck today's complaints, Continuance of care, Re-evaluation by your physician Followup: david - With: Arleth Tobin MD - When: Upon discharge from the Emergency Department - Reason: Recheck today's complaints, Re-evaluation by your physician Discharge Instructions: - Discharge Summary Sheet david - Anemia david - Cirrhosis david - Fall Prevention in the Home, Adult david - Laceration Care, Adult david - Musculoskeletal Pain david - How to Use Cold Therapy, Rwog-dv-Caps david - Laceration Care, Adult, Moqx-wu-Fikc david - Fall Prevention in the Home, Adult, Rxeq-cv-Anqa david Forms: - Medication Reconciliation Form david - Antibiotic Education david - Prescription Opioid Use david - Patient Portal Instructions [facility] - Leadership Thank You Letter [facility] Prescriptions: - Centany 2 % Topical ointment - apply 1 application TOPICAL route 3 times per day; 15 gram; Refills: 0, Product david Selection Permitted - Cephalexin 500 mg Oral capsule - take 1 capsule ORAL route every 8 hours for 7 days; 21 capsule; Refills: 0, david Product Selection Permitted Signatures: Dispatcher [employer] James Finnegan MD MD cha Hall, Patricia, RN RN ph Corrections: (The following items were deleted from the chart) 08:10 08:10 Head C Spine Cap Wo Con+CT.RAD.BRZ ordered. EDMS EDMS 09:12 09:12 Elbow Left 3 View+RAD.RAD.BRZ ordered. EDMS EDMS
--- NOTE | 2025-05-26 10:13 | ER ---
Nurse's Notes [facility] Name: Bella Barron Age: 64 yrs Sex: Female : 1960 Arrival Date: 05/26/2025 Time: 07:55 Bed 8 Private MD: Diagnosis: Laceration without foreign body of left ear-complex, through and through , cartiledge involvement;Fall on same level, unspecified;Anemia, unspecified;Liver transplant status;Contusion of left shoulder;Pain in right knee;Contusion of right knee;Unspecified cirrhosis of liver-hx;Abrasion of left elbow Presentation: 05/26 07:57 Chief complaint: EMS states: Fell in restroom, tripped over feet, abrasions to L elbow ph and L ear, c/o pain to L elbow and shoulder, no LOC, does not take blood thinners, bruising to forehead did not occur today. states that pt's current mental status is her baseline,. oriented to person and place. Coronavirus screen: At this time, the client does not indicate any symptoms associated with coronavirus-19. Ebola Screen: No symptoms or risks identified at this time. Initial Sepsis Screen: Does the patient meet any 2 criteria? No. Patient's initial sepsis screen is negative. Does the patient have a suspected source of infection? No. Patient's initial sepsis screen is negative. Risk Assessment: Do you want to hurt yourself or someone else? Patient reports no desire to harm self or others. Onset of symptoms was May 26, 2025. 07:57 Method Of Arrival: EMS: [facility] 07:57 Acuity: OLEG 3 07:57 Care prior to arrival: Bleeding of injury controlled. Mechanism of Injury: Fall from standing position. Trauma event details: Injury occurred in the [facility], Injury occurred: at home. Injury occurred: May 26, 2025. Triage Assessment: 08:02 General: Appears in no apparent distress. Behavior is calm, cooperative. Pain: Complains of pain in anterior aspect of left shoulder and left elbow. Neuro: Level of Consciousness is awake, alert, obeys commands, confused, Oriented to person, place. Cardiovascular: Capillary refill < 3 seconds in bilateral fingers Patient's skin is warm and dry. Respiratory: Airway is patent Respiratory effort is even, unlabored, Respiratory pattern is regular, symmetrical. Derm: Skin is pink, warm \T\ dry. Wound noted left elbow Wound is skin tear. Derm: Musculoskeletal: Circulation, motion, and sensation intact. Range of motion: intact in all extremities. Injury Description: Laceration sustained to pinna of left ear. Trauma Activation: Not Applicable Physician: ED Physician; Name: ; Notified At: ; Arrived At: Physician: General Surgeon; Name: ; Notified At: ; Arrived At: Physician: Radiology; Name: ; Notified At: ; Arrived At: Physician: Respiratory; Name: ; Notified At: ; Arrived At: Physician: Lab; Name: ; Notified At: ; Arrived At: Historical: - Allergies: 08:01 bismuth subsalicylate; ph 08:01 ceftriaxone; ph 08:01 Ciprofloxacin; ph 08:01 Egg Derived; ph 08:01 Iodine; ph 08:01 LACTASE; ph 08:01 Promethazine; ph - PMHx: 08:01 cirrhosis of liver; Crohn's Disease; kidney disease; hypotension; Liver transplant (Jul); trach removed Jun 2022; - PSHx: 08:01 bowel resection; Cholecystectomy; Colectomy; left shoulder replacement; liver ph transplant; - Immunization history:: Adult Immunizations unknown. - Infectious Disease History:: Denies. - Immunization history: Last tetanus immunization: - up to date. - Social history:: Smoking status: Patient reports the use of cigarette tobacco products, smokes one pack cigarettes per day. Screenin:41 [facility] ED Fall Risk Assessment (Adult) History of falling in the last 3 months, ph including since admission Yes- fall prone (multiple falls) (3 pts) Confusion or Disorientation Yes (5 pts) Intoxicated or Sedated No (0 pts) Impaired Gait No (0 pts) Mobility Assist Device Used No (0 pt) Altered Elimination Yes (1 pt) Score/Fall Risk Level 3 or more points = High Risk Oriented to surroundings, Maintained a safe environment, Hourly rounding (assess needs \T\ fall precautionary measures) done, Used ambulatory aids as needed (educated on \T\ assisted with). Abuse screen: Denies threats or abuse. Denies injuries from another. Nutritional screening: No deficits noted. Tuberculosis screening: No symptoms or risk factors identified. Primary Survey: 08:15 NO uncontrolled hemorrhage observed. A: The client is awake and alert. The airway is ph patent. Breathing/Chest: Spontaneous respiratory effort, equal unlabored respirations, breath sounds clear bilaterally, regular pattern, symmetrical chest rise and fall. Circulation: No external hemorrhage present. Regular and strong central pulse, skin warm/dry/normal color. Disability Pupils are equal, round, reactive to light and accommodation. Exposure/Environment: All clothing and personal items were removed. There is no evidence of uncontrolled external bleeding. Obvious injury(ies) are noted at this time: laceration to L ear, abrasion to L elbow A warming method has been applied: A warm blanket has been provided to the patient. 10:07 Reassessment Alertness and Airway: Awake and alert. The airway is patent. Breathing: ph Spontaneous respiratory effort, equal unlabored respirations, breath sounds clear bilaterally, regular pattern with symmetrical chest rise and fall. Circulation: No external hemorrhage noted. Regular and strong central pulse, skin warm/dry/normal color. Disability: Pupils Pupils are equal, round, reactive to light and accomodation. Secondary Survey: 08:15 HEENT: Ears: laceration to L ear. Gastrointestinal: No deficits noted. Musculoskeletal: ph Range of motion: intact in all extremities. Injury Description: Abrasion sustained to left elbow. Assessment: 08:30 General: SEE TRIAGE ASSESSMENT. ph 10:30 Reassessment: Patient appears in no apparent distress at this time. Patient and/or ph family updated on plan of care and expected duration. Pain level reassessed. Patient is alert, oriented x 3, equal unlabored respirations, skin warm/dry/pink. Pt requesting pain medication prior to d/c, Dr Rossi notified, verbal order received for Vernon 5mg, see MAR. Vital Signs: 07:57 BP 117 / 59; Pulse 77; Resp 18; Temp 97.5; Pulse Ox 97% on R/A; Weight 62 kg; ph 09:00 BP 118 / 72; Pulse 79; Resp 18; Pulse Ox 98% on R/A; ph 10:08 BP 114 / 79; Pulse 81; Resp 16; Pulse Ox 97% on R/A; ph Yojana Coma Score: 08:00 Eye Response: spontaneous(4). Motor Response: obeys commands(6). Verbal Response: ph oriented(5). Total: 15. 09:00 Eye Response: spontaneous(4). Motor Response: obeys commands(6). Verbal Response: ph oriented(5). Total: 15. 10:08 Eye Response: spontaneous(4). Motor Response: obeys commands(6). Verbal Response: ph oriented(5). Total: 15. Trauma Score (Adult): 08:00 Eye Response: spontaneous(1); Verbal Response: oriented(1); Motor Response: obeys ph commands(2); Systolic BP: > 89 mm Hg(4); Respiratory Rate: 10 to 29 per min(4); Yojana Score: 15; Trauma Score: 12 09:00 Eye Response: spontaneous(1); Verbal Response: oriented(1); Motor Response: obeys ph commands(2); Systolic BP: > 89 mm Hg(4); Respiratory Rate: 10 to 29 per min(4); Yojana Score: 15; Trauma Score: 12 10:08 Eye Response: spontaneous(1); Verbal Response: oriented(1); Motor Response: obeys ph commands(2); Systolic BP: > 89 mm Hg(4); Respiratory Rate: 10 to 29 per min(4); Yojana Score: 15; Trauma Score: 12 ED Course: 07:57 Patient arrived in ED. ph 07:58 James Rossi MD is Attending Physician. david 08:01 Triage completed. ph 08:02 Arm band placed on. ph 08:15 Initial lab(s) drawn, by ri, sent to lab. EKG done, by ED staff, reviewed by James Rossi MD. Inserted saline lock: 22 gauge in right antecubital area, using aseptic technique. Blood collected. Flushed with 10 mL NS. 08:21 María Christianson, RN is Primary Nurse. ph 08:48 Head C Spine Mpr Wo Con In Process Unspecified. EDMS 08:48 Chest Abd Pelvis Wo Con In Process Unspecified. EDMS 09:10 Patient has correct armband on for positive identification. Bed in low position. Call ph light in reach. Side rails up X2. 09:11 Patient maintains SpO2 saturation greater than 95% on room air. ph 10:07 Thermoregulation: warm blanket given to patient. ph 10:07 No provider procedures requiring assistance completed. ph 10:12 Arleth Tobin MD is Referral Physician. david 10:38 Shoulder Left (2 View) XRAY In Process Unspecified. EDMS 10:38 Elbow Left 3 View XRAY In Process Unspecified. EDMS 10:38 Knee Right 3 View XRAY In Process Unspecified. EDMS 10:48 IV discontinued, intact, bleeding controlled, No redness/swelling at site. Pressure ph dressing applied. Administered Medications: 09:08 Drug: NS 0.9% IV 500 ml 500 ml IV at 1 bolus once; to be given as a bolus over 30 ph minutes Volume: 500 ml; Route: IV; Rate: 1 bolus; Site: right antecubital; 09:40 Follow up: Response: No adverse reaction; IV Status: Completed infusion; IV Intake: ph 500ml 09:08 Drug: ceFAZolin IVPB 1 grams IVPB once Route: IVPB; Site: right antecubital; ph 09:40 Follow up: Response: No adverse reaction; IV Status: Completed infusion ph 09:10 Drug: fentaNYL (PF) IVP 25 mcg IVP once Route: IVP; Site: right antecubital; ph 09:25 Follow up: Response: No adverse reaction; Pain is decreased ph 09:10 Drug: Ondansetron IVP 4 mg IVP once; over 2 minutes Route: IVP; Site: right antecubital;ph 10:44 Follow up: Response: No adverse reaction ph 10:04 Not Given (Physician Discretion): fpimhwexo-lzxoumldrmx-5%: (1:100,000) 5 ml 20 ml ph Infiltration once; to bedside 10:04 Not Given (Vaccine UTD): boostrix tdap0.5 ml IM once; as a single dose ph 10:43 Drug: Vernon PO 5 mg-325 mg 1 tabs PO once Route: PO; ph 10:43 Follow up: Response: No adverse reaction; Medication administered at discharge. ph Medication: 10:06 VIS not applicable for this client. ph Intake: 09:40 IV: 500ml; Total: 500ml. ph 10:47 IV: 500ml; Total: 1000ml. ph Output: 10:47 Urine: 300ml (Voided); Total: 300ml. ph Outcome: 10:12 Discharge ordered by . david 10:47 Discharged to home via wheelchair, with significant other, ph 10:47 Condition: good 10:47 Discharge instructions given to patient, significant other, Instructed on discharge instructions, follow up and referral plans. medication usage, Demonstrated understanding of instructions, follow-up care, medications, Prescriptions given X 2, 10:48 Patient's length of stay was not longer than 2 hours. ph 10:50 Patient left the ED. ph Signatures: Dispatcher [employer] James Finnegan MD MD cha Hall, Patricia, RN RN ph
[2025-05-26] MEDS ORDERED: HYDROCODONE/APAP 5/325 MG TAB ONE (10:36)
[2025-05-26 10:55] VITALS: TEMP 97.5
[2025-05-26 10:57] VITALS: BP 114/79; O2SAT 97
--- NOTE | 2025-05-26 10:59 | RAD REPORT ---
Exam:Shoulder Left 2+ Views HISTORY: Left shoulder pain FINDINGS: Left shoulder prosthesis in place. No fracture or dislocation seen
--- NOTE | 2025-05-26 11:06 | RAD REPORT ---
Exam:Knee Right 3 View HISTORY: Right knee pain FINDINGS: No acute fracture or dislocation seen Bones are osteoporotic 6 mm lucency medial femoral condyle may represent an osteochondral lesion
--- NOTE | 2025-05-26 11:06 | RAD REPORT ---
Exam:Elbow Left 3 View HISTORY: Left elbow pain FINDINGS: Lateral view suboptimal secondary to the elbow being rotated. No gross fracture or dislocation seen
== END 2025-05-26 10:50 | disposition home or self-care (01) ==
LOC: ER 07:55
DX: S01.312A Laceration without foreign body of left ear, initial encounter (principal); S50.312A Abrasion of left elbow, initial encounter; S40.012A Contusion of left shoulder, initial encounter; S80.01XA Contusion of right knee, initial encounter; D64.9 Anemia, unspecified; W18.30XA Fall on same level, unspecified, initial encounter; F17.210 Nicotine dependence, cigarettes, uncomplicated; Z94.4 Liver transplant status; Z23 Encounter for immunization; Z96.612 Presence of left artificial shoulder joint
CPT/HCPCS: 96365; 93005; 85025; 36415; 84484; 80053; 70450; 71250; 72125; 74176; 73080; 73030; 73562; 90715; 96375; 99285; J3010; J2405; J7040; J0690

== ENCOUNTER 2025-05-30 21:44 | Emergency (ER) | payer OTHER ==
[2025-05-30] MEDS ORDERED: KETOROLAC 10 MG TAB ONE (22:11)
[2025-05-30] MEDS ORDERED: ONDANSETRON 4 MG (ODT) TAB ONE (22:12)
[2025-05-30] MEDS ORDERED: HYDROCODONE/APAP 5/325 MG TAB ONE ×2 (22:12→23:36)
--- NOTE | 2025-05-30 22:47 | RAD REPORT ---
EXAMINATION: XR LEFT SHOULDER CLINICAL INDICATION: Female, 64 years old. PAIN TECHNIQUE: Internal and external AP view radiograph of the left shoulder were obtained. COMPARISON: 05/26/2025. FINDINGS: No evidence of fracture or dislocation. Reverse left shoulder arthroplasty in stable [facility] ent. No other focal bone lesion. Soft tissues are unremarkable. IMPRESSION: No acute or significant abnormalities.
--- NOTE | 2025-05-30 22:49 | RAD REPORT ---
EXAMINATION: XR Elbow Left 3 View CLINICAL INDICATION: Female, 64 years old. PAIN TECHNIQUE: 3 view radiographs of the left elbow were obtained. COMPARISON: 05/26/2025 . FINDINGS: No evidence of fracture or dislocation. Normal alignment. No joint effusion. Mild degenerat chago changes. Stable irregularity at the olecranon, could reflect sequelae of triceps tendinosis or remote injury. No suspicious focal bone lesion. Soft tissues are unremarkable. IMPRESSION: No acute osseous abnormalities. No joint effusion. Chronic findings as above.
--- NOTE | 2025-05-30 22:50 | RAD REPORT ---
EXAMINATION: XR LEFT HUMERUS HISTORY: left arm pain TECHNIQUE: Multiple views of the left humerus were obtained. COMPARISON: 06/15/2024 FINDINGS: No acute bone or joint abnormality detected. Reverse shoulder last the with components in s atisfactory alignment. Progressive callus and remodeling proximally.
--- NOTE | 2025-05-30 23:45 | EDPHYS ---
Physician Documentation [facility] Name: Bella Barron Age: 64 yrs Sex: Female : 1960 Arrival Date: 05/30/2025 Time: 21:44 Bed 9 Private MD: ED Physician Jonathon Jeter HPI: 05/30 21:51 This 64 yrs old Other Race Female presents to ER via Unassigned with complaints of Fall sp4 Injury, Shoulder Injury. 05/31 20:13 Very pleasant 64-year-old female presents with acute left shoulder left elbow pain sp4 after fall at home. . Historical: - Allergies: 05/30 21:50 bismuth subsalicylate; ha1 21:50 ceftriaxone; ha1 21:50 Ciprofloxacin; ha1 21:50 Egg Derived; ha1 21:50 Iodine; ha1 21:50 LACTASE; ha1 21:50 Promethazine; ha1 - PMHx: 21:50 cirrhosis of liver; Crohn's Disease; hypotension; kidney disease; Liver transplant (Jul); trach removed Jun 2022; - PSHx: 21:50 bowel resection; Cholecystectomy; Colectomy; left shoulder replacement; liver ha1 transplant; - Immunization history:: Adult Immunizations up to date. - Infectious Disease History:: Denies. - Social history:: Smoking status: Patient reports the use of cigarette tobacco products, smokes one pack cigarettes per day. - Family history:: not pertinent. ROS: 05/31 20:13 Constitutional: Negative for fever, chills, and weight loss, positive for acute fall sp4 positive for left shoulder pain positive for left elbow pain All other systems are negative, Exam: 20:13 Constitutional: Patient is frail female, chronically ill-appearing, nontoxic, guarding sp4 left shoulder, scar from prior left total shoulder plate. Head/Face: Normocephalic, atraumatic. Eyes: Pupils equal round and reactive to light, extra-ocular motions intact. Lids and lashes normal. Conjunctiva and sclera are not injected. Cornea within normal limits. Periorbital areas with no swelling, redness, or edema. ENT: Nares patent. No nasal discharge, no septal abnormalities noted. Tympanic membranes are normal and external auditory canals are clear. Oropharynx with no redness, swelling, or masses, exudates, or evidence of obstruction, uvula midline. Mucous membranes moist. Neck: Trachea midline, no thyromegaly or masses palpated, and no cervical lymphadenopathy. Supple, full range of motion without nuchal rigidity, or vertebral point tenderness. Chest/axilla: Normal chest wall appearance and motion. Nontender with no deformity. No lesions are appreciated. Cardiovascular: Regular rate and rhythm with a normal S1 and S2. No gallops, murmurs, or rubs. No pulse deficits. Respiratory: Lungs have equal breath sounds bilaterally, clear to auscultation and percussion. No rales, rhonchi or wheezes noted. No increased work of breathing, no retractions or nasal flaring. Abdomen/GI: Soft, with normal bowel sounds. No distension or tympany. No guarding or rebound. No evidence of tenderness throughout. Back: No spinal tenderness. No costovertebral tenderness. Skin: Warm, dry with normal turgor. Normal color with no rashes, no lesions, and no evidence of cellulitis. MS/ Extremity: Pulses equal, no cyanosis. Neurovascular intact. Decreased range of motion left shoulder, decreased range of motion left elbow. No deformity, previous scars from prior left shoulder replaced Neuro: Awake and alert, GCS 15, oriented to person, place, time, and situation. Cranial nerves II-XII grossly intact. Motor strength 5/5 in all extremities. Sensory grossly intact. Psych: Awake, alert, with orientation to person, place and time. Behavior, mood, and affect are within normal limits Vital Signs: 05/30 21:50 BP 121 / 66; Pulse 76; Resp 18 S; Temp 97.8(O); Pulse Ox 97% on R/A; Weight 65.77 kg; ha1 Height 5 ft. 2 in. ; 22:00 BP 101 / 87; Pulse 81; Resp 18; Pulse Ox 99% on R/A; Pain 9/10; rg5 23:35 BP 122 / 89; Pulse 83; Resp 18; Pulse Ox 98% ; rg5 21:50 Body Mass Index 26.52 (65.77 kg, 157.48 cm) ha1 22:00 Pain Scale: Adult rg5 Yojana Coma Score: 22:00 Eye Response: spontaneous(4). Motor Response: obeys commands(6). Verbal Response: rg5 oriented(5). Total: 15. 05/31 20:13 Eye Response: spontaneous(4). Motor Response: obeys commands(6). Verbal Response: sp4 oriented(5). Total: 15. Trauma Score (Adult): 05/30 22:00 Eye Response: spontaneous(1); Verbal Response: oriented(1); Motor Response: obeys rg5 commands(2); Systolic BP: > 89 mm Hg(4); Respiratory Rate: 10 to 29 per min(4); Dixon Score: 15; Trauma Score: 12 Procedures: 05/31 20:17 Splinting: Splint applied to anterior aspect of left shoulder using sling, applied by sp4 myself. Examined by me, post splint application: neurovascular intact, 2+ distal pulses palpable, brisk capillary refill noted, Patient tolerated well. MDM: 05/30 21:57 Medical Screening Exam initiated sp4 05/31 20:16 Differential diagnosis: abrasion, closed head injury, contusion, multiple trauma, sp4 sprain, strain. Data reviewed: vital signs, nurses notes, radiologic studies, plain films. 20:17 Consideration of Admission/Observation Escalation of care including sp4 admission/observation considered. ED course: X-rays negative for acute fracture or dislocation. Left shoulder hardware appears intact. Patient stable for discharge home after sling. 05/30 21:58 Order name: Shoulder Left (2 View) XRAY; Complete Time: 23:29 sp4 05/30 21:58 Order name: Elbow Left 3 View XRAY; Complete Time: 23:29 sp4 05/30 21:58 Order name: Humerus Left XRAY; Complete Time: 23:29 sp4 05/30 23:41 Order name: Sling; Complete Time: 23:42 sp4 Administered Medications: 05/30 22:19 Drug: Ondansetron PO 4 mg PO once Route: PO; rg5 22:46 Follow up: Response: No adverse reaction rg5 22:26 Drug: HYDROcodone-acetaminophen PO 5 mg-325 mg 2 tabs PO once Route: PO; rg5 22:47 Follow up: Response: No adverse reaction; Pain is decreased rg5 22:26 Drug: Methocarbamol PO 750 mg PO once Route: PO; rg5 22:46 Follow up: Response: No adverse reaction; Pain is decreased rg5 22:26 Drug: Ketorolac PO 10 mg PO once Route: PO; rg5 22:46 Follow up: Response: Pain is decreased rg5 22:46 Follow up: Response: No adverse reaction; Pain is decreased rg5 23:45 Drug: HYDROcodone-acetaminophen PO 5 mg-325 mg 1 tabs PO once Route: PO; rg5 05/31 00:02 Follow up: Response: No adverse reaction; Pain is decreased rg5 Disposition: 20:18 Chart complete. sp4 Disposition Summary: 05/30/25 23:44 Discharge Ordered Notes: Location: Home sp4 Problem: new sp4 Symptoms: have improved sp4 Condition: Stable sp4 Diagnosis - Acute fall at home, acute soft tissue contusion, acute abrasion left elbow, left sp4 shoulder sprain, acute left elbow sprain Followup: sp4 - With: Private Physician - When: 7 - 10 days - Reason: Recheck today's complaints Discharge Instructions: - Discharge Summary Sheet sp4 - Elbow Sprain sp4 Forms: - Patient Portal Instructions sp4 Prescriptions: - Tramadol 50 mg Oral Tablet - take 1 tablet ORAL route every 8 hours as needed; 12 tablet; Refills: 0, sp4 Product Selection Permitted Signatures: Dispatcher [employer] Екатерина Rhodes RN RN ha1 Jonathon Jeter MD MD sp4 Ganesh Montero RN RN rg5 Corrections: (The following items were deleted from the chart) 05/30 21:58 21:58 Elbow Left 3 View+RAD.RAD.BRZ ordered. EDMS EDMS
--- NOTE | 2025-05-30 23:45 | ER ---
[facility] Name: Bella Barron Age: 64 yrs Sex: Female : 1960 Arrival Date: 05/30/2025 Time: 21:44 Bed 9 Private MD: Diagnosis: Acute fall at home, acute soft tissue contusion, acute abrasion left elbow, left shoulder sprain, acute left elbow sprain Presentation: 05/30 21:50 Chief complaint: Patient states: FELL AND INJURED LEFT SHOULDER. PAIN ON THE LEFT ha1 SHOULDER. 21:50 Coronavirus screen: Client denies travel out of the [place] in the last 14 days. Ebola ha1 Screen: No symptoms or risks identified at this time. Initial Sepsis Screen: Does the patient meet any 2 criteria? No. Patient's initial sepsis screen is negative. Does the patient have a suspected source of infection? No. Patient's initial sepsis screen is negative. Risk Assessment: Do you want to hurt yourself or someone else? Patient reports no desire to harm self or others. Onset of symptoms was May 30, 2025. 21:50 Method Of Arrival: Wheelchair ha1 21:50 Acuity: LOEG 4 ha1 22:00 Care prior to arrival: None. Mechanism of Injury: Fall. Trauma event details: Injury rg5 occurred in the [facility]. Triage Assessment: 21:50 General: Appears uncomfortable, Behavior is calm, cooperative. Pain: Complains of pain ha1 in LEFT SHOULDER Pain currently is 10 out of 10 on a pain scale. Quality of pain is described as aching. Neuro: Level of Consciousness is awake, alert, obeys commands, Oriented to person, place, time, situation. Cardiovascular: Capillary refill < 3 seconds Patient's skin is warm and dry. Respiratory: Airway is patent Respiratory effort is even, unlabored, Respiratory pattern is regular, symmetrical. Derm: Skin is pink, warm \T\ dry. Historical: - Allergies: 21:50 bismuth subsalicylate; ha1 21:50 ceftriaxone; ha1 21:50 Ciprofloxacin; ha1 21:50 Egg Derived; ha1 21:50 Iodine; ha1 21:50 LACTASE; ha1 21:50 Promethazine; ha1 - PMHx: 21:50 cirrhosis of liver; Crohn's Disease; hypotension; kidney disease; Liver transplant (Jul); trach removed Jun 2022; - PSHx: 21:50 bowel resection; Cholecystectomy; Colectomy; left shoulder replacement; liver ha1 transplant; - Immunization history:: Adult Immunizations up to date. - Infectious Disease History:: Denies. - Social history:: Smoking status: Patient reports the use of cigarette tobacco products, smokes one pack cigarettes per day. - Family history:: not pertinent. Screenin:00 Abuse screen: Denies threats or abuse. Tuberculosis screening: No symptoms or risk rg5 factors identified. 22:40 [facility] ED Fall Risk Assessment (Adult) History of falling in the last 3 months, rg5 including since admission Yes- single mechanical fall (1 pt) Confusion or Disorientation No (0 pts) Intoxicated or Sedated No (0 pts) Impaired Gait Yes (1 pt) Mobility Assist Device Used No (0 pt) Altered Elimination Score/Fall Risk Level 0 - 2 = Low Risk Oriented to surroundings, Maintained a safe environment. Nutritional screening: No deficits noted. Primary Survey: 22:00 NO uncontrolled hemorrhage observed. A: The client is awake and alert. The airway is rg5 patent. Breathing/Chest: Spontaneous respiratory effort, equal unlabored respirations, breath sounds clear bilaterally, regular pattern, symmetrical chest rise and fall. Circulation: No external hemorrhage present. Regular and strong central pulse, skin warm/dry/normal color. Disability Pupils are equal, round, reactive to light and accommodation. Client is alert. Exposure/Environment: All clothing and personal items were removed. Forensic evidence collection is not deemed to be indicated at this time. Items placed in patient belonging bag. 22:41 Reassessment Breathing:. rg5 Assessment: 22:00 General: Appears in no apparent distress. uncomfortable, Behavior is calm, cooperative, rg5 appropriate for age. Pain: Complains of pain in anterior aspect of left shoulder Quality of pain is described as aching. Neuro: Level of Consciousness is awake, alert, obeys commands, Oriented to person, place, time, situation. EENT: No deficits noted. Cardiovascular: Patient's skin is warm and dry. Respiratory: Airway is patent Trachea midline Respiratory effort is even, unlabored. GI: No signs and/or symptoms were reported involving the gastrointestinal system. : No signs and/or symptoms were reported regarding the genitourinary system. Derm: Skin is intact, Skin is dry, Skin is normal. Musculoskeletal: Circulation, motion, and sensation intact. Range of motion:. 23:01 Reassessment: No changes from previously documented assessment. Patient and/or family rg5 updated on plan of care and expected duration. Pain level reassessed. Patient is alert, oriented x 3, equal unlabored respirations, skin warm/dry/pink. 05/31 00:02 Reassessment: Patient and/or family updated on plan of care and expected duration. Pain rg5 level reassessed. Patient is alert, oriented x 3, equal unlabored respirations, skin warm/dry/pink. Patient states symptoms have improved. Vital Signs: 05/30 21:50 BP 121 / 66; Pulse 76; Resp 18 S; Temp 97.8(O); Pulse Ox 97% on R/A; Weight 65.77 kg; ha1 Height 5 ft. 2 in. ; 22:00 BP 101 / 87; Pulse 81; Resp 18; Pulse Ox 99% on R/A; Pain 9/10; rg5 23:35 BP 122 / 89; Pulse 83; Resp 18; Pulse Ox 98% ; rg5 21:50 Body Mass Index 26.52 (65.77 kg, 157.48 cm) ha1 22:00 Pain Scale: Adult rg5 Yojana Coma Score: 22:00 Eye Response: spontaneous(4). Motor Response: obeys commands(6). Verbal Response: rg5 oriented(5). Total: 15. 05/31 20:13 Eye Response: spontaneous(4). Motor Response: obeys commands(6). Verbal Response: sp4 oriented(5). Total: 15. Trauma Score (Adult): 05/30 22:00 Eye Response: spontaneous(1); Verbal Response: oriented(1); Motor Response: obeys rg5 commands(2); Systolic BP: > 89 mm Hg(4); Respiratory Rate: 10 to 29 per min(4); Yojana Score: 15; Trauma Score: 12 ED Course: 21:48 Patient arrived in ED. gm2 21:51 Jonathon Jeter MD is Attending Physician. sp4 22:00 Patient has correct armband on for positive identification. Bed in low position. Call rg5 light in reach. Side rails up X 1. Patient maintains SpO2 saturation greater than 95% on room air. 22:00 Patient maintains SpO2 saturation greater than 95% on room air. rg5 22:02 Triage completed. ha1 22:05 Ganesh Montero, AMARILIS is Primary Nurse. rg5 22:22 Shoulder Left (2 View) XRAY In Process Unspecified. EDMS 22:22 Elbow Left 3 View XRAY In Process Unspecified. EDMS 22:22 Humerus Left XRAY In Process Unspecified. EDMS 22:40 No provider procedures requiring assistance completed. rg5 Administered Medications: 22:19 Drug: Ondansetron PO 4 mg PO once Route: PO; rg5 22:46 Follow up: Response: No adverse reaction rg5 22:26 Drug: HYDROcodone-acetaminophen PO 5 mg-325 mg 2 tabs PO once Route: PO; rg5 22:47 Follow up: Response: No adverse reaction; Pain is decreased rg5 22:26 Drug: Methocarbamol PO 750 mg PO once Route: PO; rg5 22:46 Follow up: Response: No adverse reaction; Pain is decreased rg5 22:26 Drug: Ketorolac PO 10 mg PO once Route: PO; rg5 22:46 Follow up: Response: Pain is decreased rg5 22:46 Follow up: Response: No adverse reaction; Pain is decreased rg5 23:45 Drug: HYDROcodone-acetaminophen PO 5 mg-325 mg 1 tabs PO once Route: PO; rg5 05/31 00:02 Follow up: Response: No adverse reaction; Pain is decreased rg5 Medication: 05/30 23:01 VIS not applicable for this client. rg5 Intake: 22:00 PO: 0ml; Total: 0ml. rg5 Outcome: 23:44 Discharge ordered by MD. rodrigez 05/31 00:02 Discharged to home via wheelchair, rg5 Condition: stable Discharge instructions given to patient, Instructed on discharge instructions, Demonstrated understanding of instructions, Prescriptions given X 1, 00:03 Patient left the ED. rg5 Signatures: Dispatcher [employer] Екатерина Rhodes, RN RN calin1 Jonathon Jeter MD MD sp4 Mitchell, Ginger 2 Ganesh Montero RN RN rg5
[2025-05-31 04:51] VITALS: TEMP 97.8
[2025-05-31 04:53] VITALS: BP 122/89; O2SAT 98
== END 2025-05-31 00:03 | disposition home or self-care (01) ==
LOC: ER 21:44
DX: S53.402A Unspecified sprain of left elbow, initial encounter (principal); S43.402A Unspecified sprain of left shoulder joint, initial encounter; W18.30XA Fall on same level, unspecified, initial encounter; Y92.009 Unspecified place in unspecified non-institutional (private) residence as the place of occurrence of the external cause
CPT/HCPCS: 73080; 73060; 73030; 99283; Q0162

== ENCOUNTER 2025-06-02 19:40 | Emergency (ER) | payer OTHER ==
[2025-06-02] MEDS ORDERED: HYDROCODONE/APAP 5/325 MG TAB ONE (20:42)
--- NOTE | 2025-06-02 20:47 | RAD REPORT ---
EXAMINATION: XR LEFT ELBOW CLINICAL INDICATION: Female, 64 years old. PAIN TECHNIQUE: Multiple views of the left elbow were obtained. COMPARISON: No prior exam. FINDINGS: Diffuse osteopenia seen. Moderate radiocarpal arthritic changes. No acute fracture or dislo cation.
--- NOTE | 2025-06-02 21:08 | ER ---
[facility] Name: Bella Barron Age: 64 yrs Sex: Female : 1960 Arrival Date: 06/02/2025 Time: 19:40 Bed 11 Private MD: Diagnosis: Contusion of left elbow Presentation: 06/02 19:42 Chief complaint: Patient states: fell this past weekend and is continuing to have left me1 elbow pain. Pain 05/21. Coronavirus screen: Vaccine status: Patient reports receiving the 2nd dose of the covid vaccine. Ebola Screen: No symptoms or risks identified at this time. Initial Sepsis Screen: Does the patient meet any 2 criteria? No. Patient's initial sepsis screen is negative. Does the patient have a suspected source of infection? No. Patient's initial sepsis screen is negative. Risk Assessment: Do you want to hurt yourself or someone else? Patient reports no desire to harm self or others. Onset of symptoms is unknown. 19:42 Method Of Arrival: Wheelchair me1 19:42 Acuity: OLEG 4 me1 Historical: - Allergies: 19:43 bismuth subsalicylate; me1 19:43 ceftriaxone; me1 19:43 Ciprofloxacin; me1 19:43 Egg Derived; me1 19:43 Iodine; me1 19:43 LACTASE; me1 19:43 Promethazine; me1 - PMHx: 19:43 cirrhosis of liver; Crohn's Disease; hypotension; kidney disease; Liver transplant (Jul); trach removed Jun 2022; - PSHx: 19:43 bowel resection; Cholecystectomy; Colectomy; left shoulder replacement; liver me1 transplant; - Immunization history:: Adult Immunizations up to date. - Infectious Disease History:: Denies. - Social history:: Smoking status: Patient reports the use of cigarette tobacco products, smokes one pack cigarettes per day. - Family history:: not pertinent. - Hospitalizations: : No recent hospitalization is reported. Screenin:30 [facility] ED Fall Risk Assessment (Adult) History of falling in the last 3 months, rg5 including since admission Yes- single mechanical fall (1 pt) Confusion or Disorientation No (0 pts) Intoxicated or Sedated No (0 pts) Impaired Gait Yes (1 pt) Mobility Assist Device Used Yes (1 pt) Altered Elimination No (0 pt) Score/Fall Risk Level 3 or more points = High Risk Oriented to surroundings, Maintained a safe environment, Hourly rounding (assess needs \T\ fall precautionary measures) done, Used ambulatory aids as needed (educated on \T\ assisted with). Abuse screen: Denies threats or abuse. Nutritional screening: No deficits noted. Tuberculosis screening: No symptoms or risk factors identified. Assessment: 19:30 General: Appears in no apparent distress. comfortable, Behavior is calm, cooperative, rg5 appropriate for age. Pain: Complains of pain in anterior aspect of left shoulder Quality of pain is described as aching. Neuro: Level of Consciousness is awake, alert, obeys commands, Oriented to person, place, time, situation. Cardiovascular: Denies chest pain, Patient's skin is warm and dry. Respiratory: Airway is patent Respiratory effort is even, unlabored. GI: : No signs and/or symptoms were reported regarding the genitourinary system. EENT: No signs and/or symptoms were reported regarding the EENT system. Derm: Skin is intact, Skin is dry, Skin is normal. Musculoskeletal: Circulation, motion, and sensation intact. Range of motion: intact in all extremities. Vital Signs: 19:30 BP 141 / 88; Pulse 76; Resp 18; Pulse Ox 100% ; rg5 19:42 BP 138 / 90; Pulse 75; Resp 18; Temp 98.3; Pulse Ox 100% ; Weight 70.31 kg; Height 4 me1 ft. 11 in. ; Pain 10/10; 19:42 Body Mass Index 31.31 (70.31 kg, 149.86 cm) me1 19:42 Pain Scale: Adult me1 Yojana Coma Score: 19:30 Eye Response: spontaneous(4). Motor Response: obeys commands(6). Verbal Response: rg5 oriented(5). Total: 15. ED Course: 19:30 Allergy band placed. Bed in low position. Call light in reach. Side rails up X 1. Adult rg5 w/ patient. Door closed. Noise minimized. 19:30 No provider procedures requiring assistance completed. rg5 19:42 Patient arrived in ED. me1 19:42 Beau Encarnacion MD is Attending Physician. rn 19:43 Triage completed. me1 19:43 Arm band placed on Patient placed in an exam room. me1 19:50 Ganesh Montero, RN is Primary Nurse. rg5 20:58 Patient did not have IV access during this emergency room visit. bleeding controlled, rg5 No redness/swelling at site. Pressure dressing applied. 21:07 XRAY Elbow LEFT 3 view In Process Unspecified. EDMS Administered Medications: 20:51 Drug: HYDROcodone-acetaminophen PO 5 mg-325 mg 1 tabs PO once Route: PO; rg5 20:58 Follow up: Response: No adverse reaction; Pain is decreased rg5 Medication: 19:30 VIS not applicable for this client. rg5 Outcome: 20:50 Discharge ordered by . rn 20:58 Discharged to home ambulatory, rg5 20:58 Condition: stable 20:58 Discharge instructions given to patient, Instructed on discharge instructions, follow up and referral plans. Demonstrated understanding of instructions, follow-up care, 20:59 Patient left the ED. rg5 Signatures: Dispatcher [employer] EDBeau Payne MD MD rn Eddleman, Michelle, RN RN me1 Ganesh Montero, RN RN rg5
--- NOTE | 2025-06-02 21:08 | EDPHYS ---
Physician Documentation [facility] Name: Bella Barron Age: 64 yrs Sex: Female : 1960 Arrival Date: 06/02/2025 Time: 19:40 Bed 11 Private MD: ED Physician Beau Encarnacion HPI: 06/02 19:50 This 64 yrs old Female presents to ER via Wheelchair with complaints of Elbow Injury. rn 19:50 Patient reports fall over the weekend, thinks that x-rays of the left elbow and did not rn reinjure it but has persistent pain in the left elbow. Requesting another x-ray. No new fall or trauma. No weakness or numbness. No significant swelling. Has been bruised since the weekend. Otherwise doing okay.. Historical: - Allergies: 19:43 bismuth subsalicylate; me1 19:43 ceftriaxone; me1 19:43 Ciprofloxacin; me1 19:43 Egg Derived; me1 19:43 Iodine; me1 19:43 LACTASE; me1 19:43 Promethazine; me1 - PMHx: 19:43 cirrhosis of liver; Crohn's Disease; hypotension; kidney disease; Liver transplant (Jul); trach removed Jun 2022; - PSHx: 19:43 bowel resection; Cholecystectomy; Colectomy; left shoulder replacement; liver me1 transplant; - Immunization history:: Adult Immunizations up to date. - Infectious Disease History:: Denies. - Social history:: Smoking status: Patient reports the use of cigarette tobacco products, smokes one pack cigarettes per day. - Family history:: not pertinent. - Hospitalizations: : No recent hospitalization is reported. ROS: 19:50 Constitutional: Negative for fever, chills, and weight loss, Neck: Negative for injury, rn pain, and swelling, Cardiovascular: Negative for chest pain, palpitations, and edema, Respiratory: Negative for shortness of breath, cough, wheezing, and pleuritic chest pain, Abdomen/GI: Negative for abdominal pain, nausea, vomiting, diarrhea, and constipation, Back: Negative for injury and pain, MS/Extremity: Positive for left elbow pain Skin: Negative for injury, rash, and discoloration, Neuro: Negative for headache, weakness, numbness, tingling, and seizure, Exam: 19:50 Constitutional: This is a well developed, well nourished patient who is awake, alert, rn and in no acute distress. Head/Face: Normocephalic, atraumatic. Cardiovascular: Regular rate and rhythm. No pulse deficits. Respiratory: No increased work of breathing, no retractions or nasal flaring. MS/ Extremity: Ecchymosis over left olecranon, no open wounds, full range of motion with minimal pain but does have point tenderness on olecranon. No proximal humerus or mid humerus tenderness or swelling. Neuro: Awake and alert, GCS 15 Vital Signs: 19:30 BP 141 / 88; Pulse 76; Resp 18; Pulse Ox 100% ; rg5 19:42 BP 138 / 90; Pulse 75; Resp 18; Temp 98.3; Pulse Ox 100% ; Weight 70.31 kg; Height 4 me1 ft. 11 in. ; Pain 10/10; 19:42 Body Mass Index 31.31 (70.31 kg, 149.86 cm) me1 19:42 Pain Scale: Adult me1 [place] Coma Score: 19:30 Eye Response: spontaneous(4). Motor Response: obeys commands(6). Verbal Response: rg5 oriented(5). Total: 15. MDM: 19:42 Medical Screening Exam initiated rn 20:49 Differential diagnosis: closed fracture, contusion. Data reviewed: vital signs, nurses rn notes, radiologic studies, plain films, and as a result, I will discharge patient. Independent interpretation of the following test(s) in the Emergency Department X-Ray: My interpretation is X-ray images left elbow negative for acute fracture or dislocation per my interpretation. Counseling: I had a detailed discussion with the patient and/or guardian regarding the historical points, exam findings, and any diagnostic results supporting the discharge/admit diagnosis, radiology results, the need for outpatient follow up, to return to the emergency department if symptoms worsen or persist or if there are any questions or concerns that arise at home. Special discussion: I discussed with the patient/guardian in detail that at this point there is no indication for admission to the hospital. It is understood, however, that if the symptoms persist or worsen the patient needs to return immediately for re-evaluation. 06/02 19:43 Order name: XRAY Elbow LEFT 3 view rn 06/02 20:49 Order name: Sling; Complete Time: 20:51 rn Administered Medications: 20:51 Drug: HYDROcodone-acetaminophen PO 5 mg-325 mg 1 tabs PO once Route: PO; rg5 20:58 Follow up: Response: No adverse reaction; Pain is decreased rg5 Disposition Summary: 06/02/25 20:50 Discharge Ordered Notes: Location: Home rn Problem: new rn Symptoms: have improved rn Condition: Stable rn Diagnosis - Contusion of left elbow rn Followup: rn - With: Private Physician - When: As needed - Reason: Recheck today's complaints, Re-evaluation by your physician Discharge Instructions: - Discharge Summary Sheet rn - Elbow Contusion rn Forms: - Medication Reconciliation Form rn - Antibiotic pediatric rn - Prescription Opioid Use rn - Patient Portal Instructions rn - Leadership Thank You Letter rn Signatures: Dispatcher [employer] Beau Almonte MD MD rn Eddleman, Michelle RN RN me1 Ganesh Montero, RN RN rg5
[2025-06-02 23:51] VITALS: BP 138/90; TEMP 98.3; O2SAT 100
== END 2025-06-02 20:59 | disposition home or self-care (01) ==
LOC: ER 19:40
DX: S50.02XA Contusion of left elbow, initial encounter (principal); F17.210 Nicotine dependence, cigarettes, uncomplicated; W18.30XA Fall on same level, unspecified, initial encounter; Y93.9 Activity, unspecified; Y92.9 Unspecified place or not applicable; Z88.1 Allergy status to other antibiotic agents; Z88.8 Allergy status to other drugs, medicaments and biological substances
CPT/HCPCS: 99283